=== PATIENT | female | born 1975 | race Caucasian/White ===

== ENCOUNTER 2023-09-26 06:56 | Outpatient (OUT) | payer OTHER, SELFPAY ==
[2023-09-26 07:24] LABS: Basophils Absolute Auto 0.1 10^3/uL (0.0-0.1); Basophils Percent Auto 0.7 % (0.2-2.0); Eosinophils Absolute Auto 0.2 10^3/uL (0.0-0.7); Eosinophils Percent Auto 2.9 % (0.9-7.0); Hematocrit 39.4 % (36.0-48.0); Hemoglobin 12.6 g/dL (12.0-16.0); Immature Granulocytes Abs Auto 0.03 10^3/uL (0.00-0.03); Immature Granulocytes Pct Auto 0.4 % (0.0-0.5); Lymphocytes Absolute Auto 1.2 10^3/uL (1.2-3.8); Lymphocytes Percent Auto 17.7 % (20.5-60.0); Mean Corpuscular Hemoglobin 28.3 pg (26.7-34.0); Mean Corpuscular Volume 88.5 fL (81.0-99.0); Mean Platelet Volume 8.6 fL (9.5-13.5); Monocytes Absolute Auto 0.4 10^3/uL (0.3-0.8); Monocytes Percent Auto 5.2 % (1.7-12.0); Neutrophils Percent Auto 73.1 % (43.0-75.0); Platelet Count 344 10^3/uL (150-450); Red Blood Count 4.45 10^6/uL (4.20-5.40); Red Cell Distribution Width 13.9 % (11.0-15.0); White Blood Count 6.9 10^3/uL (4.0-11.0)
[2023-09-26 08:58] LABS: Magnesium 1.8 mg/dL (1.8-2.4); Phosphorus 3.8 mg/dL (2.6-4.7); Uric Acid 4.6 mg/dL (2.6-6.0)
[2023-09-26 14:18] LABS: Estimated Average Glucose 117 mg/dL; Glycohemoglobin A1C 5.7 % (4.5-6.2)
[2023-09-26 14:19] LABS: Alanine Aminotransferase 29 U/L (14-59); Albumin Globulin Ratio 0.9; Albumin Level 3.7 g/dL (3.4-5.0); Alkaline Phosphatase 97 U/L (46-116); Anion Gap 16.6; Aspartate Amino Transferase 20 U/L (15-37); BUN Creatinine Ratio 12.5; Bilirubin Direct 0.1 mg/dL (0.0-0.2); Bilirubin Total 0.4 mg/dL (0.2-1.0); Calcium 9.8 mg/dL (8.5-10.1); Carbon Dioxide 24.6 mmol/L (21.0-32.0); Chloride 103 mmol/L (98-107); Cholesterol 227 mg/dL (<=200); Estimated GFR (African America 58 (>=60); Estimated GFR (Non-African Ame 48 (>=60); Globulin 4.1 g/dL; Glucose 121 mg/dL (74-106); HDL Cholesterol 38 mg/dL (40-60); Potassium 3.2 mmol/L (3.5-5.1); Sodium 141 mmol/L (136-145); Total Protein 7.8 g/dL (6.4-8.2); Triglycerides 246 mg/dL (<=150); VLDL CHOLESTEROL 49.2 mg/dL
[2023-09-30 16:08] LABS: BKV DNA, Quant PCR, Plasma Negative (Negative)
== END 2023-09-26 06:57 | disposition home or self-care (01) ==
LOC: LAB 07:00
PROVIDERS: PCP Internal Medicine; Visit Provider Internal Medicine Nephrology
DX: R73.01 Impaired fasting glucose (principal); Z94.0 Kidney transplant status
CPT/HCPCS: 36415; 80053; 80061; 80197; 82248; 83036; 83735; 84100; 84550; 85025; 87799

== ENCOUNTER 2023-11-01 09:04 | Outpatient (OUT) | payer OTHER, SELFPAY ==
--- OUTSIDE RECORDS SUMMARY | 2023-11-01 09:10 | XMS_ITS | CCD ---
Author Name Unknown Address [address] [place] [address] Organization [facility] Care Team Providers Care Flying I Instructor Name Role Phone Ming Espinoza Primary Care Provider [phone] VIDAL MADRIGAL Attending Unavailable MING ESPINOZA Primary Care Unavailable Yaneth Muñoz Unavailable Shabbir Jones Unavailable Dipika Stinson Unavailable Jesus Parham Unavailable [phone] DO iMng Espinoza Primary Care Provider MD Shabbir Jones Attending Provider MD Yaneth Muñoz Attending Provider [phone] MD Jesus Parham Attending Provider [phone] Estefania Vo Unavailable DO Ming Espinoza Primary Care Provider [phone] EB Forman Emergency Provider DO Blake Champion Attending Provider JAVON, DR ZARAGOZA Admitting Unavailable DR MING ESPINOZA Primary Care Unavailable JAVON, DR ZARAGOZA Attending Unavailable JAVON, DR ZARAGOZA Consulting Unavailable YANETH MUÑOZ Admitting Unavailable DR MING ESPINOZA Primary Care Unavailable DR MING ESPINOZA Consulting Unavailable YANETH MUÑOZ Attending Unavailable YANETH MUÑOZ Consulting Unavailable DR MING ESPINOZA Primary Care Unavailable TONI, YANETH Attending Unavailable TONI, YANETH Consulting Unavailable TONI, YANETH Admitting Unavailable TONI, YANETH Admitting Unavailable ALEXIS, DR ACOSTA Primary Care Unavailable TONI, YANETH Attending Unavailable TONI, YANETH Consulting Unavailable JAYCEE, DR PARRY Admitting Unavailable ALEXIS, DR ACOSTA Primary Care Unavailable JAYCEE, DR PARRY Attending Unavailable JAYCEE, DR PARRY Consulting Unavailable JAYCEE, DR MORALES Attending Unavailable JAYCEE, DR MORALES Admitting Unavailable ALEXIS, DR ACOSTA Primary Care Unavailable ALEXIS, DR ACOSTA Primary Care Unavailable MISC, DR ZARAGOZA Admitting Unavailable MISC, DR ZARAGOZA Attending Unavailable MISC, DR ZARAGOZA Consulting Unavailable TONI, YANETH Admitting Unavailable ALEXIS, DR ACOSTA Primary Care Unavailable TONI, YANETH Attending Unavailable TONI, YANETH Consulting Unavailable Self, Referral Admitting Unavailable Self, Referral Attending Unavailable Blake Champion Referring Unavailable Ming Espinoza Primary Care Unavailable JOÃO PARRISH Attending Unavailable JOÃO PARRISH Attending Unavailable SUJIT MONTERROSO Attending Unavailable SREE BLANCHARD Attending Unavailable DOLORESSUJIT BRISCOE Attending Unavailable MING ESPINOZA Attending Unavailable MING ESPINOZA Referring Unavailable Allergies Allergy Classification Reported Allergen(s) Allergy Type Date of Onset Reaction(s) Facility (11 sources) Allopurinol; Translations: [ALLOPURINOL] Drug Allergy 08-02-2019 [place], [place] (6 sources) venlafaxine; Translations: [venlafaxine] Drug Allergy 06-05-2022 [facility] (1 source) Allopurinol Drug Allergy 06-20-2022 [facility] Repository (1 source) venlafaxine; Translations: [VENLAFAXINE HCL] Drug Allergy 07-10-2021 [facility] Repository Medications Current Medications Medication Drug Class(es) Dates Sig (Normalized) Sig (Original) amoxicillin 875 mg / clavulanate 125 mg oral tablet (2 sources) Penicillin-class Antibacterial Start: 04-30-2022 take 1 tablet by mouth every twelve hours Amoxicillin-Pot Clavulanate 875-125 MG 1 tablet Orally every 12 hrs for 7 days Apr, Active {1 (ascorbic acid 7540 MG / polyethylene glycol 3350 44713 MG / potassium chloride 1200 MG / sodium ascorbate 14586 MG / sodium chloride 3200 MG Powder for Oral Solution) / 1 (polyethylene glycol 3350 585531 MG / potassium chloride 1000 MG / sodium chloride 2000 MG / sodium sulfate 9000 MG Powder for Oral Solution) } Pack [Plenvu] (1 source) Osmotic Laxative, Vitamin C Start: 02-26-2022 Plenvu 140 GM dose 1 pouch at 4pm, dose 2 pouch A & B at 11pm Orally twice a day for 1 days [id number] PCN: [id number] GROUP:[id number] ID:[id number] February, Active cetirizine hydrochloride 10 mg oral tablet (9 sources) Histamine-1 Receptor Antagonist take 1 tablet by mouth once daily as needed ZyrTEC Allergy 10 MG 1 tablet as needed Orally Once a day Active DULoxetine 60 mg delayed release oral capsule (14 sources) Serotonin and Norepinephrine Reuptake Inhibitor Start: 01-19-2019 take 60 mg by mouth once daily in the morning Duloxetine Active 60 MG PO Every morning January 19, 2019 12:00am DULoxetine HCl ( CYMBALTA PO) Take by mouth 0 Active febuxostat 40 mg oral tablet (13 sources) Xanthine Oxidase Inhibitor Start: 08-02-2019 Febuxostat (Uloric) 40 mg Tablet Active 20 MG PO Every morning August 02, 2019 12:00am take 0.5 tablet by mouth once da larissa Uloric 40 MG 1/2 tablet Orally Once a day Active ferrous sulfate 134 mg oral tablet (12 sources) Start: 04-01-2022 take 27 mg by mouth every other day Ferrous Sulfate Active 27 MG PO Q2D April 01, 2022 12:00am Start: 08-05-2019 End: 04-01-2022 take 324 mg by mouth twice daily Ferrous Sulfate Discontinued 324 MG PO Twice daily 60 30 August 05, 2019 12:00am April 01, 2022 7:05am Start: 01-20-2019 End: 08-02-2019 take 324 mg by mouth twice daily Ferrous Sulfate Discontinued 324 MG PO Twice daily 60 January 20, 2019 12:00am August 02, 2019 5:52pm furosemide 20 mg oral tablet (9 sources) Loop Diuretic take 1 tablet by mouth once daily as needed Furosemide 20 MG TAKE 1 TABLET BY MOUTH EVERY DAY for 90 PRN Active Iron (9 sources) take 1 tablet by mouth every other day Iron (Ferrous Sulfate) 325 (65 Fe) MG 1 tablet Orally every other day Active lisinopril 20 mg oral tablet (20 sources) Angiotensin Converting Enzyme Inhibitor Start: End: 2 take 20 mg by mouth once daily in the morning Lisinopril Active 20 MG PO Every morning June 05, 2022 9:09am LISINOPRIL PO Ta ke by mouth 0 Active Multivitamin preparation (9 sources) take 1 tablet by mouth once daily Multi Vitamin - 1 tablet Orally Once a day Active sodium bicarbonate 650 mg oral tablet (13 sources) Start: 04-01-2022 take 650 mg by mouth twice daily Sodium Bicarbonate Active 650 MG PO Twice daily April 01, 2022 12:00am 3 ml sodium chloride 9 mg/ml injection (4 sources) Start: 08-02-2019 sodium chloride flush 0.9 % injection 10 mL Start: 08-02-2019 sodium chlorid e flush 0.9 % injection 10 mL Start: 08-02-2019 End: 08-02-2019 0.9 % sodium chloride bolus Completed/Discontinued Medications Medication Drug Class(es) Dates Sig (Normalized) Sig (Original) acetaminophen 500 mg oral tablet (5 sources) Start: 08-02-2019 End: 08-02-2019 acetaminophen (TYLENOL) tablet 1,000 mg Start: 08-02-2019 take 2 tablets by mo ut once daily Acetaminophen (Tylenol Extra Strength) 500 mg Tablet Active 1000 MG PO Daily August 02, 2019 12:00am calcitriol 0.28885 mg oral capsule (4 sources) Vitamin D3 Analog Start: 01-20-2019 End: 08-02-2019 Calcitriol (Rocaltrol) 0.25 mcg Capsule Discontinued 0.25 MCG PO MoWeFr@0900 12 January 20, 2019 12:00am August 02, 2019 5:53pm calcium carbonate 500 mg chewable tablet (4 sources) Start: 01-19-2019 End: 08-02-2019 take 1 tablet by mouth four times daily Calcium Carbonate (Tums) 200 mg calcium (500 mg) Tablet,Chewable Discontinued 200 MG PO Four times daily January 19, 2019 12:00am August 02, 2019 5:51pm cefTRIAXone (ROCEPHIN) 1 g in sterile water 10 mL IV syringe (1 source) Start: 08-02-2019 End: 08-02-2019 cefTRIAXone (ROCEPHIN) 1 g in sterile water 10 mL IV syringe cephalexin 500 mg oral capsule (12 sources) Cephalosporin Antibacterial Start: 04-01-2022 End: 06-05-2022 take 500 mg by mouth four times daily Cephalexin Discontinued 500 MG PO Four times daily April 01, 2022 12:00am June 05, 2022 9:02am Start: 08-05-2019 End: 05-21-2020 take 1 capsule by mouth twice daily Cephalexin (Keflex) 500 mg capsule Discontinued 500 MG PO Twice daily 24 12 August 05, 2019 12:00am May 21, 2020 9:38pm Start: 01-20-2019 End: 08-02-2019 take 1 capsule by mouth every eight hours Cephalexin (Keflex) 500 mg capsule Discontinued 500 MG PO Q8H 15 5 January 20, 2019 12:00am August 02, 2019 5:51pm ciprofloxacin 250 mg oral tablet (4 sources) Quinolone Antimicrobial Start: 05-15-2020 End: 04-01-2022 take 1 tablet by mouth every twelve hours Ciprofloxacin Hcl (Cipro) 250 mg tablet Discontinued 250 MG PO Q12H 6 3 May 15, 2020 12:00am April 01, 2022 7:03am ergocalciferol 1.25 mg oral capsule (4 sources) Provitamin D2 Compound Start: 01-20-2019 End: 08-02-2019 take 15439 [IU] by mouth every month Ergocalciferol (Vitamin D2) Discontinued 42714 UNIT PO every month January 20, 2019 12:00am August 02, 2019 5:53pm hydroCHLOROthiazide 12.5 mg / lisinopril 20 mg oral tablet (4 sources) Thiazide Diuretic, Angiotensin Converting Enzyme Inhibitor Start: 01-19-2019 End: 08-05-2019 take 1 tablet by mouth once daily Lisinopril-Hydroch lorothiazide Discontinued 1 TAB PO Daily January 19, 2019 12:00am August 05, 2019 4:31pm Iopamidol (1 source) Radiographic Contrast Agent Start: 08-02-2019 End: 08-02-2019 iopamidol (ISOVUE-370) 76 % injection 100 mL Problems Active Problems Problem Classification Problem Date Documented Date Episodic/Chronic Acute and chronic tonsillitis (9 sources) Amygdalolith; Translations: [Other chronic diseases of tonsils and adenoids] Chronic Acute and unspecified renal failure (1 source) Chronic renal failure; Translations: [Chronic renal failure, stage 4 (severe) (HCC)] Chronic Acute and unspecified renal failure (4 sources) Injury of kidney; Translations: [Acute kidney failure, unspecified] 01-19-2019 Episodic Acute myocardial infarction (4 sources) Myocardial infarction; Translations: [Non-ST elevation (NSTEMI) myocardial infarction] 08-03-2019 Chronic Chronic kidney disease (20 sources) Chronic kidney disease stage 4; Translations: [Chronic kidney disease, stage 4 (severe)] Onset: 2 Resolved: 2 Chronic Complication of device; implant or graft (2 sources) Other complication of kidney transplant; Translations: [Other complication of kidney transplant] Onset: 3 Chronic Deficiency and other anemia (13 sources) Anemia of renal disease; Translations: [Anemia in chronic kidney disease] 01-19-2019 Chronic Deficiency and other anemia (8 sources) Anemia in chronic kidney disease; Translations: [ANEMIA IN CHRONIC KIDNEY DISEASE] Onset: 1 Resolved: 2 Chronic Deficiency and other anemia (9 sources) Iron deficiency anemia; Translations: [Iron deficiency anemia, unspecified] Episodic Diabetes mellitus without complication (2 sources) Impaired fasting glucose; Translations: [Impaired fasting glucose] Onset: 3 Episodic Disorders of lipid metabolism (4 sources) Hyperlipidemia, unspecified; Translations: [Pure hypercholesterolemia, unspecified] Onset: 3 Chronic Essential hypertension (2 sources) Essential (primary) hypertension; Translations: [Essential (primary) hypertension] Onset: 2 Chronic Fever of unknown origin (4 sources) Fever; Translations: [Fever, unspecified] 05-22-2020 Episodic Genitourinary congenital anomalies (20 sources) Polycystic kidney disease, adult type; Translations: [Polycystic kidney, adult type] Onset: 2 Resolved: 2 Chronic Genitourinary congenital anomalies (1 source) Multiple renal cysts; Translations: [Polycystic kidney disease] Episodic Genitourinary symptoms and ill-defined conditions (4 sources) Dysuria 01-19-2019 Episodic Gout and other crystal arthropathies (13 sources) Gout; Translations: [Gout, unspecified] Onset: 2 Resolved: 2 Chronic Hypertension with complications and secondary hypertension (20 sources) Chronic kidney disease due to hypertension; Translations: [Hypertensive chronic kidney disease with stage 1 through stage 4 chronic kidney disease, or unspecified chronic kidney disease] Onset: 1 Resolved: 2 Chronic Immunity disorders (2 sources) Immunodeficiency, unspecified; Translations: [Immunodeficiency, unspecified] Onset: 3 Chronic Intrauterine hypoxia and asphyxia (1 source) Metabolic acidemia, unspecified Episodic Nutritional deficiencies (4 sources) Vitamin D deficiency; Translations: [Vitamin D deficiency, unspecified] 01-20-2019 Chronic Other aftercare (2 sources) Encounter for aftercare following kidney transplant; Translations: [Encounter for aftercare following kidney transplant] Onset: 3 Chronic Other aftercare (2 sources) Encounter for aftercare following other organ transplant; Translations: [Encounter for aftercare following other organ transplant] Onset: 3 Chronic Other circulatory disease (7 sources) Acquired arteriovenous fistula aneurysm; Translations: [Arteriovenous fistula, acquired] Chronic Other circulatory disease (1 source) Ecchymosis; Translations: [Hemorrhage, not elsewhere classified] 06-20-2022 Episodic Other connective tissue disease (1 source) Pain in left arm; Translations: [Pain in left arm] 06-20-2022 Episodic Other diseases of kidney and ureters (13 sources) Secondary hyperparathyroidism; Translations: [Secondary hyperparathyroidism of renal origin] 01-19-2019 Chronic Other diseases of kidney and ureters (4 sources) Secondary hyperparathyroidism of renal origin; Translations: [SEC HYPERPARATHYROIDISM RENAL ORIGN] Onset: 2 Resolved: 2 Chronic Other inflammatory condition of skin (4 sources) Pruritus of skin; Translations: [Pruritus, unspecified] 08-04-2019 Episodic Other nervous system disorders (2 sources) Myopathy, unspecified; Translations: [Myopathy, unspecified] Onset: 3 Chronic Other nutritional; endocrine; and metabolic disorders (4 sources) Hyperuricemia; Translations: [Hyperuricemia without signs of inflammatory arthritis and tophaceous disease] 01-19-2019 Episodic Ovarian cyst (4 sources) Unspecified ovarian cyst, left side; Translations: [UNSPECIFIED OVARIAN CYST LEFT SIDE] Onset: 2 Episodic Septicemia (except in labor) (5 sources) Sepsis; Translations: [Sepsis due to urinary tract infection] 08-03-2019 Episodic Unclassified (1 source) Encounter for screening mammogram for malignant neoplasm of breast; Translations: [Encounter for screening mammogram for malignant neoplasm of breast] Onset: 3 Unclassified (2 sources) Kidney Follow-up; Translations: [Kidney Follow-up] Onset: 3 Unclassified (1 source) Acidosis, unspecified; Translations: [Acidosis, unspecified] Onset: 2 Unclassified (2 sources) Kidney Transplant; Translations: [Kidney Transplant] Onset: 3 Urinary tract infections (13 sources) Acute cystitis; Translations: [Urinary tract infectious disease] 05-15-2020 Episodic Past or Other Problems Problem Classification Problem Date Documented Date Episodic/Chronic Fluid and electrolyte disorders (5 sources) Acidosis; Translations: [Other disorders of electrolyte and fluid balance, not elsewhere classified] Onset: 12-06-2021 Resolved: 05-02-2022 Episodic Immunizations and screening for infectious disease (2 sources) Encounter for screening for human immunodeficiency virus [HIV]; Translations: [Encounter for screening for human immunodeficiency virus (HIV)] Onset: 10-23-2022 Episodic Other aftercare (2 sources) Other termite helper (current) drug therapy; Translations: [Other termite helper (current) drug therapy] Onset: 11-06-2022 Episodic Other nutritional; endocrine; and metabolic disorders (2 sources) Hyperuricemia without signs of inflammatory arthritis and tophaceous disease; Translations: [Hyperuricemia without signs of inflammatory arthritis and tophaceous disease] Onset: 10-01-2022 Episodic Other screening for suspected conditions (not mental disorders or infectious disease) (3 sources) Encounter for screening for malignant neoplasm of colon; Translations: [Encounter for screening for diseases of the blood and blood-forming organs and certain disorders involving the immune mechanism] Onset: 02-26-2022 Resolved: 02-26-2022 Episodic Otitis media and related conditions (1 source) Otitis media, unspecified, bilateral Onset: 04-30-2022 Resolved: 04-30-2022 Episodic Unclassified (1 source) Acidosis, unspecified; Translations: [Acidosis, unspecified] Onset: 11-08-2022 Results Test Name Value Interpretation Reference Range Facility Orders Onlyon 10-02-2023 Orders Only Normal [facility] Follow-Upon 09-01-2023 Follow-Up Normal [facility] BILIRUBIN, DIRECTon 08-26-20 Magnesium [Mass/Vol] 0.1 mg/dL Normal 0-0.2 [facility] Comment on above: Performed By: #### L [id number] ####[facility] ([facility])[address] [place] [address] CBC WITH AUTO DIFFERENTIALon 08-26-2023 Basophils (Bld) [#/Vol] 0.05 10*3/uL Normal 0.00-0.20 [facility] Comment on above: Performed By: #### L [id number] ####[facility] ([facility])[address] [place] [address] Basophils/100 WBC (Bld) 0.6 % Normal 0.0-1.0 [facility] Comment on above: Performed By: #### L [id number] ####[facility] ([facility])[address] [place] [address] Eosinophils (Bld) [#/Vol] 0.20 10*3/uL Normal 0.00-0.50 [facility] Comment on above: Performed By: #### L [id number] ####[facility] ([facility])[address] [place] [address] Eosinophils/100 WBC (Bld) 2.5 % Normal 0.0-6.0 [facility] Comment on above: Performed By: #### L [id number] ####[facility] ([facility])[address] [place] [address] Erythrocyte distribution width (RBC) [Ratio] 14.4 % Normal 11.5-15.0 [facility] Comment on above: Performed By: #### L [id number] ####[facility] ([facility])[address] [place] [address] ERYTHROCYTE MEAN CORPUSCULAR HEMOGLOBIN CONCENTRATION (G/DL) BY AUTOMATED 32.9 g/dL Normal 32.0-35.0 [facility] Comment on above: Performed By: #### L [id number] ####[facility] ([facility])[address] [place] [address] Hematocrit (Bld) [Volume fraction] 40.4 % Normal 36.0-48.0 [facility] Comment on above: Performed By: #### L [id number] ####[facility] ([facility])[address] [place] [address] Hemoglobin (Bld) [Mass/Vol] 13.3 g/dL Normal 12.0-15.0 [facility] Comment on above: Performed By: #### L [id number] ####[facility] ([facility])[address] [place] [address] Immature granulocytes (Bld) [#/Vol] 0.06 10*3/uL Normal 0.00-0.20 [facility] Comment on above: Performed By: #### L [id number] ####[facility] ([facility])[address] [place] [address] Immature granulocytes/100 WBC (Bld) 0.7 % Normal 0.0-1.0 [facility] Comment on above: Performed By: #### L [id number] ####[facility] ([facility])[address] [place] [address] Lymphocytes (Bld) [#/Vol] 1.19 10*3/uL Low 1.20-4.00 [facility] Comment on above: Performed By: #### L [id number] ####[facility] ([facility])[address] [place] [address] Lymphocytes/100 WBC (Bld) 14.6 % Low 20.0-45.0 [facility] Comment on above: Performed By: #### L [id number] ####[facility] ([facility])[address] [place] [address] MCH (RBC) [Entitic mass] 28.4 pg Normal 27.0-33.0 [facility] Comment on above: Performed By: #### L [id number] ####[facility] ([facility])[address] [place] [address] MCV (RBC) [Entitic vol] 86.1 fL Normal 82.0-98.0 [facility] Comment on above: Performed By: #### L [id number] ####[facility] ([facility])[address] [place] [address] Monocytes (Bld) [#/Vol] 0.42 10*3/uL Normal 0.10-1.00 [facility] Comment on above: Performed By: #### L [id number] ####[facility] ([facility])[address] [place] [address] Monocytes/100 WBC (Bld) 5.2 % Normal 5.0-12.0 [facility] Comment on above: Performed By: #### L [id number] ####[facility] ([facility])[address] [place] [address] Neutrophils (Bld) [#/Vol] 6.22 10*3/uL Normal 1.60-7.60 [facility] Comment on above: Performed By: #### L [id number] ####[facility] ([facility])[address] [place] [address] Neutrophils/100 WBC (Bld) 76.4 % High 40.0-72.0 [facility] Comment on above: Performed By: #### L [id number] ####[facility] ([facility])[address] [place] [address] NRBC (PER 100 WBCS) BY AUTOMATED COUNT 0.0 % Normal 0 [facility] Comment on above: Performed By: #### L [id number] ####[facility] ([facility])[address] [place] [address] PLATELETS (10*3/UL) IN BLOOD AUTOMATED COUNT 374 10*3/uL Normal 150-400 [facility] Comment on above: Performed By: #### L [id number] ####[facility] ([facility])[address] [place] [address] RBC (Bld) [#/Vol] 4.69 10*6/uL Normal 3.80-5.00 [facility] Comment on above: Performed By: #### L [id number] ####[facility] ([facility])[address] [place] [address] WBC (Bld) [#/Vol] 8.14 10*3/uL Normal 4.00-10.60 [facility] Comment on above: Performed By: #### L [id number] ####[facility] ([facility])[address] [place] [address] [address] MET[address]OLIC PANE [facility] 08-26-2023 Albumin [Mass/Vol] 4.7 g/dL Normal 3.5-5.7 [facility] Comment on above: Performed By: #### L [id number] ####[facility] ([facility])[address] [place] [address] ALP [Catalytic activity/Vol] 90 U/L Normal 34-104 [facility] Comment on above: Performed By: #### L [id number] ####[facility] ([facility])[address] [place] [address] ALT [Catalytic activity/Vol] 26 U/L Normal 7-52 [facility] Comment on above: Performed By: #### L [id number] ####[facility] ([facility])[address] [place] [address] Anion gap [Moles/Vol] 12 mmol/L Normal 7-20 [facility] Comment on above: Performed By: #### L [id number] ####[facility] ([facility])[address] [place] [address] AST [Catalytic activity/Vol] 22 U/L Normal 13-39 [facility] Comment on above: Performed By: #### L [id number] ####[facility] ([facility])[address] [place] [address] Bilirubin [Mass/Vol] 0.4 mg/dL Normal 0.3-1.0 [facility] Comment on above: Performed By: #### L [id number] ####[facility] ([facility])[address] [place] [address] Calcium [Mass/Vol] 9.6 mg/dL Normal 8.6-10.3 [facility] Comment on above: Performed By: #### L [id number] ####[facility] ([facility])[address] [place] [address] Chloride [Moles/Vol] 103 mmol/L Normal 98-107 [facility] Comment on above: Performed By: #### L [id number] ####[facility] ([facility])[address] [place] [address] CO2 [Moles/Vol] 26 mmol/L Normal 21-31 [facility] Comment on above: Performed By: #### L [id number] ####[facility] ([facility])[address] [place] [address] Creatinine [Mass/Vol] 1.12 mg/dL Normal 0.60-1.20 [facility] Comment on above: Performed By: #### L [id number] ####[facility] ([facility])[address] [place] [address] GLOMERULAR FILTRATION RATE ML/MIN/1.73 SQ M.PREDICTED 61.0 mL/min/1.73m*2 Normal >60.0 [facility] Comment on above: Result Comment: The [facility]???s estimated glomerular filtration rate (eGFR) will no longer include consideration of race in its calculation. The [employer]???s eGFR Task Force developed new recommendations for the estimation of the glomerular filtration rate in the [place] They recommend immediate implementation of the new equation refit without the race variable in all laboratories because the calculation does not include race. In addition to not including race in the calculation and reporting, it included diversity in its development, and has acceptable performance characteristics and potential consequences that do not disproportionately affect any one group of individuals. Performed By: #### L [id number] ####[facility] ([facility])[address] [place] [address] Glucose [Mass/Vol] 125 mg/dL High 70-100 [facility] Comment on above: Performed By: #### L [id number] ####[facility] ([facility])[address] [place] [address] Potassium [Moles/Vol] 3.1 mmol/L Low 3.5-5.1 [facility] Comment on above: Performed By: #### L [id number] ####[facility] ([facility])[address] [place] [address] Protein [Mass/Vol] 7.4 g/dL Normal 6.0-8.3 [facility] Comment on above: Performed By: #### L [id number] ####[facility] ([facility] [place] [address] Sodium [Moles/Vol] 138 mmol/L Normal 136-145 [facility] Comment on above: Performed By: #### L [id number] ####[facility] ([facility] [place] [address] Urea nitrogen [Mass/Vol] 15 mg/dL Normal 7-25 [facility] Comment on above: Performed By: #### L [id number] ####[facility] ([facility])[address] [place] [address] UREA NITROGEN/CREATININE (MASS RATIO) IN SER/PLAS 13.4 Normal [facility] Comment on above: Performed By: #### L [id number] ####[facility] ([facility])[address] [place] [address] HEMOGLOBIN A1Con 08-26-2023 Glucose [Mass/Vol] 108 mg/dL Normal [facility] Comment on above: Performed By: #### L [id number] ####[facility] ([facility])[address] [place] [address] HbA1c (Bld) [Mass fraction] 5.4 % Normal 4.0-6.0 [facility] Comment on above: Performed By: #### L [id number] ####[facility] ([facility])[address] [facility] [address] LIPID PANELon 08-26-2023 CHOL/HDL 4.7 mg/dL Normal [facility] Comment on above: Performed By: #### L [id number] ####[facility] ([facility])[address] [facility] [address] Cholesterol [Mass/Vol] 198 mg/dL Normal 120-200 [facility] Comment on above: Performed By: #### L [id number] ####[facility] ([facility] [place] [address] Magnesium [Mass/Vol] 248 mg/dL High 40-149 [facility] Comment on above: Result Comment: TRIG LYCERIDE REFERENCE RANGE:20 YEARS AND OLDER CARDIOVASCULAR RISKLESS THAN 150 mg/dL LOW [id number] TO 199 mg/dL BORDERLINE [id number] mg/dL AND GREATER HIGH RISK Performed By: #### L [id number] ####[facility] ([facility])[address] [facility] [place] [address] Magnesium [Mass/Vol] 106 mg/dL Normal 0-160 [facility] Comment on above: Performed By: #### L [id number] ####[facility] ([facility])[address] [facility] [place] [address] Magnesium [Mass/Vol] 42 mg/dL Normal 23-92 [facility] Comment on above: Performed By: #### L [id number] ####[facility] ([facility])[address] [facility] [place] [address] NON HDL CHOL. (LDL+VLDL) 156 Normal [facility] Comment on above: Performed By: #### L [id number] ####[facility] ([facility])[address] [facility] [place] [address] TOTAL VLDL-C 50 mg/dL High 0-40 [facility] Comment on above: Performed By: #### L [id number] ####[facility] ([facility])[address] [facility] [place] [address] Labon 08-26-2023 Lab Normal [facility] MAGNESIUMon 08-26-2023 Magnesium [Mass/Vol] 1.5 mg/dL Low 1.9-2.7 [facility] Comment on above: Performed By: #### L [id number] ####[facility] ([facility])[address] [place] [address] PHOSPHORUSon 08-26-2023 Magnesium [Mass/Vol] 2.9 mg/dL Normal 2.5-5.0 [facility] Comment on above: Performed By: #### L [id number] ####[facility] ([facility])[address] [place] [address] TACROLIMUS LEVELon Tacrolimus (Bld) [Mass/Vol] 9.2 ng/mL Normal 5.0-20.0 [facility] Comment on above: Result Comment: The [employer] Tacrolimus assay is a delayed one-step immunoassay for the quantitative determination of tacrolimus in human whole blood using the chemiluminescent microparticle immunoassay (CMIA) technology with flexible assay protocols, referred to as Chemiflex. Performed By: #### L [id number] ####[facility] ([facility])[address] [place] [address] URIC ACIDon 08-26-2023 Magnesium [Mass/Vol] 5.1 mg/dL Normal 2.3-6.6 [facility] Comment on above: Performed By: #### L [id number] ####[facility] ([facility])[address] [place] [address] COMPREHENSIVE METABOLIC PANE Jonathan 08-06-2023 Albumin [Mass/Vol] 4.7 g/dL Normal 3.5-5.7 [facility] Comment on above: Performed By: #### L [id number] ####[facility] ([facility])[address] [place] [address] ALP [Catalytic activity/Vol] 85 U/L Normal 34-104 [facility] Comment on above: Performed By: #### L [id number] ####[facility] ([facility])[address] [place] [address] ALT [Catalytic activity/Vol] 25 U/L Normal 7-52 [facility] Comment on above: Performed By: #### L [id number] ####[facility] ([facility])[address] [place] [address] Anion gap [Moles/Vol] 14 mmol/L Normal 7-20 [facility] Comment on above: Performed By: #### L [id number] ####[facility] ([facility])[address] [place] [address] AST [Catalytic activity/Vol] 23 U/L Normal 13-39 [facility] Comment on above: Performed By: #### L [id number] ####[facility] ([facility])[address] [place] [address] Bilirubin [Mass/Vol] 0.5 mg/dL Normal 0.3-1.0 [facility] Comment on above: Performed By: #### L [id number] ####[facility])[address] [place] [address] Calcium [Mass/Vol] 9.5 mg/dL Normal 8.6-10.3 [facility] Comment on above: Performed By: #### L [id number] ####[facility])[address] [place] [address] Chloride [Moles/Vol] 105 mmol/L Normal 98-107 [facility] Comment on above: Performed By: #### L [id number] ####[facility] ([facility])[address] [place] [address] CO2 [Moles/Vol] 21 mmol/L Normal 21-31 [facility] Comment on above: Performed By: #### L [id number] ####[facility] ([facility])[address] [place] [address] Creatinine [Mass/Vol] 1.23 mg/dL High 0.60-1.20 [facility] Comment on above: Performed By: #### L [id number] ####[facility] ([facility])[address] [place] [address] GLOMERULAR FILTRATION RATE ML/MIN/1.73 SQ M.PREDICTED 54.5 mL/min/1.73m*2 Low >60.0 [facility] Comment on above: Result Comment: The [facility]???s estimated glomerular filtration rate (eGFR) will no longer include consideration of race in its calculation. The National Kidney Foundation???s eGFR Task Force developed new recommendations for the estimation of the glomerular filtration rate in the [place] They recommend immediate implementation of the new equation refit without the race variable in all laboratories because the calculation does not include race. In addition to not including race in the calculation and reporting, it included diversity in its development, and has acceptable performance characteristics and potential consequences that do not disproportionately affect any one group of individuals. Performed By: #### L [id number] ####[facility] ([facility])[address] [place] [address] Glucose [Mass/Vol] 133 mg/dL High 70-100 [facility] Comment on above: Performed By: #### L [id number] ####[facility] ([facility])[address] [place] [address] Potassium [Moles/Vol] 3.4 mmol/L Low 3.5-5.1 [facility] Comment on above: Performed By: #### L [id number] ####[facility])[address] [place] [address] Protein [Mass/Vol] 7.4 g/dL Normal 6.0-8.3 [facility] Comment on above: Performed By: #### L [id number] ####[facility])[address] [place] [address] Sodium [Moles/Vol] 137 mmol/L Normal 136-145 [facility] Comment on above: Performed By: #### L [id number] ####[facility])[address] [place] [address] Urea nitrogen [Mass/Vol] 14 mg/dL Normal 7-25 [facility] Comment on above: Performed By: #### L [id number] ####[facility] ([facility])[address] [place] [address] UREA NITROGEN/CREATININE (MASS RATIO) IN SER/PLAS 11.4 Normal [facility] Comment on above: Performed By: #### L [id number] ####[facility] ([facility])[address] [place] [address] Labon 08-06-2023 Lab Normal [facility] Orders Onlyon 08-06-2023 Orders Only [facility] SINGLE ANTIGEN CLASS Ion AB SCREEN COMMENTS No Class I donor spe cific antibody identified [facility] Comment on above: Order Comment: To be used after initial monthly order expires Performed By: #### L [id number] ####[facility] TISSUE TYPING ([facility])[address] [place] [address] [place] CLASS I TESTED DATE Normal [facility] Comment on above: Order Comment: To be used after initial monthly order expires Performed By: #### L [id number] ####[facility] TISSUE TYPING ([facility])[address] [place] [address] [facility] SINGLE ANTIGEN CLASS 1 TEST METHOD Class I Single Antigen Normal [facility] Comment on above: Order Comment: To be used after initial monthly order expires Performed By: #### L [id number] ####[facility] TISSUE TYPING ([facility]AC)[address] [place] [address] [facility] SINGLE ANTIGEN CLASS IIon AB SCREEN COMMENTS No Class II donor specific antibody identified [facility] Comment on above: Order Comment: To be used after initial monthly order expires Performed By: #### L [id number] ####[facility] TISSUE TYPING ([facility]IST[facility]AC)[address] [place] [address] [place] CLASS II TESTED DATE [facility] Comment on above: Order Comment: To be used after initial monthly order expires Performed By: #### L [id number] ####[facility] TISSUE TYPING (HISTOTRAC)[address] [place], [place] [address] SIGNED BY Signed by Sree escamilla CHT([facility]) PARKER([facility]), [employer]inery [employer] Plant Transplant Immunology Normal [facility] Comment on above: Order Comment: To be used after initial monthly order expires Performed By: #### L [id number] ####[facility] TISSUE TYPING ([facility]ISTOTRAC)[address] [place] [address] [facility] Result Comment: Clas s I Antigen Microbeads Performed By: #### L [id number] ####[facility] TISSUE TYPING ([place]ISTOTRAC)[address] [place] [address] [facility] SINGLE ANTIGEN CLASS 2 TEST METHOD Class II Single Antigen Normal [facility] Comment on above: Order Comment: To be used after initial monthly order expires Result Comment: Clas s II Antigen Microbeads Performed By: #### L [id number] ####[facility] TISSUE TYPING ([facility]ISTOTRAC)[address] [place] [address] [facility] MM screening mammo BI w/CADo n 07-30-2023 MM screening mammo BI w/CAD [facility] [address] Mammography Report Signed Patient: Mandeep Puri MR#: [id number] 15 : 1975 Acct:[id number] Age/Sex: 47 / F ADM Date: 07/30/23 Loc: MS Room: Type: [facility] Attending Dr: Referral Self Copies to: Ming Espinoza, SELF,REFERRAL Blake Champion DO Ordering Provider: SELF,REFERRAL Date of Service: 07/30/23 MM/MM screening mammo BI w/CAD: SCREENING CLINICAL DATA: Screening for malignancy. SCREENING MAMMOGRAM - FULL FIELD DIGITAL WITH TOMOSYNTHESIS AND CAD COMPARISON:Mammograms dating back to 2018 Tomosynthesis craniocaudal and mediolateral oblique views of both breasts were obtained using low- dose digital technique. This examination was reviewed with the aid of CAD. The breast tissue is composed of scattered fibroglandular densities. There are no dominant masses, typically malignant calcifications or architectural distortion. There has been no significant interval change. MM/MM screening mammo BI w/CAD IMPRESSION: NO MAMMOGRAPHIC EVIDENCE OF MALIGNANCY. ROUTINE FOLLOW-UP IS RECOMMENDED IN ONE YEAR. RESULT CODE: 1 Negative DENSITY CODE: 2 (approximately 25-50% glandular) FOLLOW UP: 1YR The false-negative rate of mammography is approximately 10-percent. Management of a palpable abnormality must be based on clinical grounds. Patient was entered into a reminder system with a target due date for the next mammogram. Impression dictated by: Evan Messina Jr., D.O.07/30/2023 4:05 PM Dictation Location: [facility] Transcribed By: [facility] 07/30/231604 Dictated By: Evan Messina Jr, DO 07/30/231603 Signed By: 07/30/23 160 [facility] CBC WITH AUTO DIFFERENTIALon 07-24-2023 Basophils (Bld) [#/Vol] 0.06 10*3/uL Normal 0.00-0.20 [facility] Comment on above: Performed By: #### L [id number] ####[facility] ([facility])[address] [facility] [place] [address] Basophils/100 WBC (Bld) 0.7 % Normal 0.0-1.0 [facility] Comment on above: Performed By: #### L [id number] ####[facility] ([facility])[address] [facility] [place] [address] Eosinophils (Bld) [#/Vol] 0.28 10*3/uL Normal 0.00-0.50 [facility] Comment on above: Performed By: #### L [id number] ####[facility] ([facility])[address] [facility] [place] [address] Eosinophils/100 WBC (Bld) 3.3 % Normal 0.0-6.0 [facility] Comment on above: Performed By: #### L [id number] ####[facility] ([facility])[address] [facility] [place] [address] Erythrocyte distribution width (RBC) [Ratio] 14.6 % Normal 11.5-15.0 [facility] Comment on above: Performed By: #### L [id number] ####[facility] ([facility])[address] [place] [address] ERYTHROCYTE MEAN CORPUSCULAR HEMOGLOBIN CONCENTRATION (G/DL) BY AUTOMATED 33.2 g/dL Normal 32.0-35.0 [facility] Comment on above: Performed By: #### L [id number] ####[facility] ([facility])[address] [place] [address] Hematocrit (Bld) [Volume fraction] 39.7 % Normal 36.0-48.0 [facility] Comment on above: Performed By: #### L [id number] ####[facility] ([facility])[address] [place] [address] Hemoglobin (Bld) [Mass/Vol] 13.2 g/dL Normal 12.0-15.0 [facility] Comment on above: Performed By: #### L [id number] ####[facility] ([facility])[address] [place] [address] Immature granulocytes (Bld) [#/Vol] 0.09 10*3/uL Normal 0.00-0.20 [facility] Comment on above: Performed By: #### L [id number] ####[facility] ([facility])[address] [place] [address] Immature granulocytes/100 WBC (Bld) 1.1 % High 0.0-1.0 [facility] Comment on above: Performed By: #### L [id number] ####[facility] ([facility])[address] [place] [address] Lymphocytes (Bld) [#/Vol] 1.41 10*3/uL Normal 1.20-4.00 [facility] Comment on above: Performed By: #### L [id number] ####[facility] ([facility])[address] [place] [address] Lymphocytes/100 WBC (Bld) 16.5 % Low 20.0-45.0 [facility] Comment on above: Performed By: #### L [id number] ####[facility] ([facility])[address] [place] [address] MCH (RBC) [Entitic mass] 28.9 pg Normal 27.0-33.0 [facility] Comment on above: Performed By: #### L [id number] ####[facility] ([facility])[address] [place] [address] MCV (RBC) [Entitic vol] 86.9 fL Normal 82.0-98.0 [facility] Comment on above: Performed By: #### L [id number] ####[facility] ([facility])[address] [place] [address] Monocytes (Bld) [#/Vol] 0.44 10*3/uL Normal 0.10-1.00 [facility] Comment on above: Performed By: #### L [id number] ####[facility] ([facility])[address] [place] [address] Monocytes/100 WBC (Bld) 5.1 % Normal 5.0-12.0 [facility] Comment on above: Performed By: #### L [id number] ####[facility] ([facility])[address] [place] [address] Neutrophils (Bld) [#/Vol] 6.28 10*3/uL Normal 1.60-7.60 [facility] Comment on above: Performed By: #### L [id number] ####[facility] ([facility])[address] [place] [address] Neutrophils/100 WBC (Bld) 73.3 % High 40.0-72.0 [facility] Comment on above: Performed By: #### L [id number] ####[facility] ([facility])[address] [place] [address] NRBC (PER 100 WBCS) BY AUTOMATED COUNT 0.0 % Normal 0 [facility] Comment on above: Performed By: #### L [id number] ####[facility] ([facility])[address] [place] [address] PLATELETS (10*3/UL) IN BLOOD AUTOMATED COUNT 371 10*3/uL Normal 150-400 [facility] Comment on above: Performed By: #### L [id number] ####[facility] ([facility])[address] [place] [address] RBC (Bld) [#/Vol] 4.57 10*6/uL Normal 3.80-5.00 [facility] Comment on above: Performed By: #### L [id number] ####[facility] ([facility])[address] [place] [address] WBC (Bld) [#/Vol] 8.56 10*3/uL Normal 4.00-10.60 [facility] Comment on above: Performed By: #### L [id number] ####[facility] ([facility])[address] [place] [address] Labon 07-24-2023 Lab Normal [facility] Orders Onlyon 07-24-2023 Orders Only Normal [facility] BASIC METABOLIC PANELon 07-06 Anion gap [Moles/Vol] 16 mmol/L Normal 7-20 [facility] Comment on above: Performed By: #### L [id number] ####[facility] ([facility])[address] [place] [address] Calcium [Mass/Vol] 9.7 mg/dL Normal 8.6-10.3 [facility] Comment on above: Performed By: #### L [id number] ####[facility] ([facility])[address] [place] [address] Chloride [Moles/Vol] 104 mmol/L Normal 98-107 [facility] Comment on above: Performed By: #### L [id number] ####[facility] ([facility])[address] [place] [address] CO2 [Moles/Vol] 23 mmol/L Normal 21-31 [facility] Comment on above: Performed By: #### L [id number] ####[facility] [place] [address] Creatinine [Mass/Vol] 1.18 mg/dL Normal 0.60-1.20 [facility] Comment on above: Performed By: #### L [id number] ####[facility])[address] [place] [address] GLOMERULAR FILTRATION RATE ML/MIN/1.73 SQ M.PREDICTED 57.3 mL/min/1.73m*2 Low >60.0 [facility] Comment on above: Result Comment: The [facility]???s estimated glomerular filtration rate (eGFR) will no longer include consideration of race in its calculation. The National Kidney Foundation???s eGFR Task Force developed new recommendations for the estimation of the glomerular filtration rate in the [place] They recommend immediate implementation of the new equation refit without the race variable in all laboratories because the calculation does not include race. In addition to not including race in the calculation and reporting, it included diversity in its development, and has acceptable performance characteristics and potential consequences that do not disproportionately affect any one group of individuals. Performed By: #### L [id number] ####[facility] [place] [address] Glucose [Mass/Vol] 134 mg/dL High 70-100 [facility] Comment on above: Performed By: #### L [id number] ####[facility] [place] [address] Potassium [Moles/Vol] 3.5 mmol/L Normal 3.5-5.1 [facility] Comment on above: Performed By: #### L [id number] ####[facility] [place] [address] Sodium [Moles/Vol] 139 mmol/L Normal 136-145 [facility] Comment on above: Performed By: #### L [id number] ####[facility] [place] [address] Urea nitrogen [Mass/Vol] 16 mg/dL Normal 7-25 [facility] Comment on above: Performed By: #### L [id number] ####[facility] [place] [address] UREA NITROGEN/CREATININE (MASS RATIO) IN SER/PLAS 13.6 Normal [facility] Comment on above: Performed By: #### L [id number] ####[facility] [place] [address] CBC WITH AUTO DIFFERENTIALon 07-17-2023 Basophils (Bld) [#/Vol] 0.05 10*3/uL Normal 0.00-0.20 [facility] Comment on above: Performed By: #### L [id number] ####[facility] [place] [address] Basophils/100 WBC (Bld) 0.6 % Normal 0.0-1.0 [facility] Comment on above: Performed By: #### L [id number] ####[facility] [place] [address] Eosinophils (Bld) [#/Vol] 0.21 10*3/uL Normal 0.00-0.50 [facility] Comment on above: Performed By: #### L [id number] ####[facility] [place] [address] Eosinophils/100 WBC (Bld) 2.7 % Normal 0.0-6.0 [facility] Comment on above: Performed By: #### L [id number] ####[facility] [place] [address] Erythrocyte distribution width (RBC) [Ratio] 14.3 % Normal 11.5-15.0 [facility] Comment on above: Performed By: #### L [id number] ####[facility] ([facility])[address] [place] [address] ERYTHROCYTE MEAN CORPUSCULAR HEMOGLOBIN CONCENTRATION (G/DL) BY AUTOMATED 32.6 g/dL Normal 32.0-35.0 [facility] Comment on above: Performed By: #### L [id number] ####[facility] ([facility])[address] [place] [address] Hematocrit (Bld) [Volume fraction] 38.3 % Normal 36.0-48.0 [facility] Comment on above: Performed By: #### L [id number] ####[facility] ([facility])[address] [place] [address] Hemoglobin (Bld) [Mass/Vol] 12.5 g/dL Normal 12.0-15.0 [facility] Comment on above: Performed By: #### L [id number] ####[facility] ([facility])[address] [place] [address] Immature granulocytes (Bld) [#/Vol] 0.10 10*3/uL Normal 0.00-0.20 [facility] Comment on above: Performed By: #### L [id number] ####[facility] ([facility])[address] [place] [address] Immature granulocytes/100 WBC (Bld) 1.3 % High 0.0-1.0 [facility] Comment on above: Performed By: #### L [id number] ####[facility] ([facility])[address] [place] [address] Lymphocytes (Bld) [#/Vol] 1.37 10*3/uL Normal 1.20-4.00 [facility] Comment on above: Performed By: #### L [id number] ####[facility] ([facility])[address] [place] [address] Lymphocytes/100 WBC (Bld) 17.4 % Low 20.0-45.0 [facility] Comment on above: Performed By: #### L [id number] ####[facility] ([facility])[address] [place] [address] MCH (RBC) [Entitic mass] 28.9 pg Normal 27.0-33.0 [facility] Comment on above: Performed By: #### L [id number] ####[facility] ([facility])[address] [place] [address] MCV (RBC) [Entitic vol] 88.5 fL Normal 82.0-98.0 [facility] Comment on above: Performed By: #### L [id number] ####[facility] ([facility])[address] [place] [address] Monocytes (Bld) [#/Vol] 0.44 10*3/uL Normal 0.10-1.00 [facility] Comment on above: Performed By: #### L [id number] ####[facility] ([facility])[address] [place] [address] Monocytes/100 WBC (Bld) 5.6 % Normal 5.0-12.0 [facility] Comment on above: Performed By: #### L [id number] ####[facility] ([facility])[address] [place] [address] Neutrophils (Bld) [#/Vol] 5.69 10*3/uL Normal 1.60-7.60 [facility] Comment on above: Performed By: #### L [id number] ####[facility] ([facility])[address] [place] [address] Neutrophils/100 WBC (Bld) 72.4 % High 40.0-72.0 [facility] [facility] Comment on above: Performed By: #### L [id number] ####[facility] ([facility])[address] [place] [address] NRBC (PER 100 WBCS) BY AUTOMATED COUNT 0.0 % Normal 0 [facility] Comment on above: Performed By: #### L [id number] ####[facility] ([facility])[address] [place] [address] PLATELETS (10*3/UL) IN BLOOD AUTOMATED COUNT 349 10*3/uL Normal 150-400 [facility] Comment on above: Performed By: #### L [id number] ####[facility] ([facility])[address] [place] [address] RBC (Bld) [#/Vol] 4.33 10*6/uL Normal 3.80-5.00 [facility] Comment on above: Performed By: #### L [id number] ####[facility] ([facility])[address] [place] [address] WBC (Bld) [#/Vol] 7.86 10*3/uL Normal 4.00-10.60 [facility] Comment on above: Performed By: #### L [id number] ####[facility] ([facility])[address] [place] [address] HEPATIC FUNCTION PANELon Albumin [Mass/Vol] 4.4 g/dL Normal 3.5-5.7 [facility] Comment on above: Performed By: #### L [id number] ####[facility] ([facility])[address] [place] [address] ALP [Catalytic activity/Vol] 83 U/L Normal 34-104 [facility] Comment on above: Performed By: #### L [id number] ####[facility] ([facility])[address] [place] [address] ALT [Catalytic activity/Vol] 25 U/L Normal 7-52 [facility] Comment on above: Performed By: #### L [id number] ####[facility] ([facility])[address] [place] [address] AST [Catalytic activity/Vol] 21 U/L Normal 13-39 [facility] Comment on above: Performed By: #### L [id number] ####[facility] ([facility])[address] [place] [address] Bilirubin [Mass/Vol] 0.4 mg/dL Normal 0.3-1.0 [facility] Comment on above: Performed By: #### L [id number] ####[facility] ([facility] [place] [address] Magnesium [Mass/Vol] 0.1 mg/dL Normal 0-0.2 [facility] Comment on above: Performed By: #### L [id number] ####[facility] ([facility])[address] [place] [address] Protein [Mass/Vol] 7.3 g/dL Normal 6.0-8.3 [facility] Comment on above: Performed By: #### L [id number] ####[facility] ([facility])[address] [place] [address] Labon 07-17-2023 Lab Normal [facility] MAGNESIUMon 07-17-2023 Magnesium [Mass/Vol] 1.6 mg/dL Low 1.9-2.7 [facility] Comment on above: Performed By: #### L [id number] ####[facility] ([facility])[address] [place] [address] Orders Onlyon 07-17-2023 Orders Only Normal [facility] PHOSPHORUSon 07-17-2023 Magnesium [Mass/Vol] 3.3 mg/dL Normal 2.5-5.0 [facility] Comment on above: Performed By: #### L [id number] ####[facility] ([facility])[address] [place] [address] TACROLIMUS LEVELon Tacrolimus (Bld) [Mass/Vol] 6.5 ng/mL Normal 5.0-20.0 [facility] Comment on above: Result Comment: The [employer] Tacrolimus assay is a delayed one-step immunoassay for the quantitative determination of tacrolimus in human whole blood using the chemiluminescent microparticle immunoassay (CMIA) technology with flexible assay protocols, referred to as Chemiflex. Performed By: #### L [id number] ####[facility] ([facility])[address] [place] [address] URIC ACIDon 07-17-2023 Magnesium [Mass/Vol] 4.9 mg/dL Normal 2.3-6.6 [facility] Comment on above: Performed By: #### L [id number] ####[facility] ([facility])[address] [place] [address] 29on 07-16-2023 29 Addended by: LU STEPHENS on: 07/16/2023 03:23 PM Modules accepted: Orders Normal [facility] Documentationon 07-16-2023 Documentation Normal [facility] BASIC METABOLIC PANELon 09-2 Anion gap [Moles/Vol] 13 mmol/L Normal 7-20 [facility] Comment on above: Performed By: #### L [id number] ####[facility] ([facility])[address] [place] [address] Calcium [Mass/Vol] 9.6 mg/dL Normal 8.6-10.3 [facility] Comment on above: Performed By: #### L [id number] ####[facility] ([facility])[address] [place] [address] Chloride [Moles/Vol] 102 mmol/L Normal 98-107 [facility] Comment on above: Performed By: #### L [id number] ####[facility] ([facility])[address] [place] [address] CO2 [Moles/Vol] 25 mmol/L Normal 21-31 [facility] Comment on above: Performed By: #### L [id number] ####[facility] ([facility])[address] [place] [address] Creatinine [Mass/Vol] 1.26 mg/dL High 0.60-1.20 [facility] Comment on above: Performed By: #### L [id number] ####[facility] ([facility])[address] [place] [address] GLOMERULAR FILTRATION RATE ML/MIN/1.73 SQ M.PREDICTED 53.0 mL/min/1.73m*2 Low >60.0 [facility] Comment on above: Result Comment: The [facility]???s estimated glomerular filtration rate (eGFR) will no longer include consideration of race in its calculation. The National Kidney Foundation???s eGFR Task Force developed new recommendations for the estimation of the glomerular filtration rate in the [place] They recommend immediate implementation of the new equation refit without the race variable in all laboratories because the calculation does not include race. In addition to not including race in the calculation and reporting, it included diversity in its development, and has acceptable performance characteristics and potential consequences that do not disproportionately affect any one group of individuals. Performed By: #### L [id number] ####[facility] ([facility])[address] [place] [address] Glucose [Mass/Vol] 128 mg/dL High 70-100 [facility] Comment on above: Performed By: #### L [id number] ####[facility] ([facility])[address] [place] [address] Potassium [Moles/Vol] 3.1 mmol/L Low 3.5-5.1 [facility] Comment on above: Performed By: #### L [id number] ####[facility] ([facility])[address] [place] [address] Sodium [Moles/Vol] 137 mmol/L Normal 136-145 [facility] Comment on above: Performed By: #### L [id number] ####[facility] ([facility])[address] [place] [address] Urea nitrogen [Mass/Vol] 14 mg/dL Normal 7-25 [facility] Comment on above: Performed By: #### L [id number] ####[facility] ([facility])[address] [place] [address] UREA NITROGEN/CREATININE (MASS RATIO) IN SER/PLAS 11.1 Normal [facility] Comment on above: Performed By: #### L [id number] ####[facility] ([facility])[address] [place] [address] CBC WITH AUTO DIFFERENTIALon 06-28-2023 Basophils (Bld) [#/Vol] 0.06 10*3/uL Normal 0.00-0.20 [facility] Comment on above: Performed By: #### L [id number] ####[facility] ([facility])[address] [place] [address] Basophils/100 WBC (Bld) 0.6 % Normal 0.0-1.0 [facility] Comment on above: Performed By: #### L [id number] ####[facility] ([facility])[address] [place] [address] Eosinophils (Bld) [#/Vol] 0.18 10*3/uL Normal 0.00-0.50 [facility] Comment on above: Performed By: #### L [id number] ####[facility] ([facility])[address] [place] [address] Eosinophils/100 WBC (Bld) 1.8 % Normal 0.0-6.0 [facility] Comment on above: Performed By: #### L [id number] ####[facility] ([facility])[address] [place] [address] Erythrocyte distribution width (RBC) [Ratio] 14.5 % Normal 11.5-15.0 [facility] Comment on above: Performed By: #### L [id number] ####[facility] ([facility])[address] [place] [address] ERYTHROCYTE MEAN CORPUSCULAR HEMOGLOBIN CONCENTRATION (G/DL) BY AUTOMATED 33.1 g/dL Normal 32.0-35.0 [facility] Comment on above: Performed By: #### L [id number] ####[facility] ([facility])[address] [place] [address] Hematocrit (Bld) [Volume fraction] 40.5 % Normal 36.0-48.0 [facility] Comment on above: Performed By: #### L [id number] ####[facility] ([facility])[address] [place] [address] Hemoglobin (Bld) [Mass/Vol] 13.4 g/dL Normal 12.0-15.0 [facility] Comment on above: Performed By: #### L [id number] ####[facility] ([facility])[address] [place] [address] Immature granulocytes (Bld) [#/Vol] 0.13 10*3/uL Normal 0.00-0.20 [facility] Comment on above: Performed By: #### L [id number] ####[facility] ([facility])[address] [place] [address] Immature granulocytes/100 WBC (Bld) 1.3 % High 0.0-1.0 [facility] Comment on above: Performed By: #### L [id number] ####[facility] ([facility])[address] [place] [address] Lymphocytes (Bld) [#/Vol] 1.30 10*3/uL Normal 1.20-4.00 [facility] Comment on above: Performed By: #### L [id number] ####[facility] ([facility])[address] [place] [address] Lymphocytes/100 WBC (Bld) 13.3 % Low 20.0-45.0 [facility] Comment on above: Performed By: #### L [id number] ####[facility] ([facility] [place] [address] MCH (RBC) [Entitic mass] 29.2 pg Normal 27.0-33.0 [facility] Comment on above: Performed By: #### L [id number] ####[facility] ([facility])[address] [place] [address] MCV (RBC) [Entitic vol] 88.2 fL Normal 82.0-98.0 [facility] Comment on above: Performed By: #### L [id number] ####[facility] ([facility])[address] [place] [address] Monocytes (Bld) [#/Vol] 0.51 10*3/uL Normal 0.10-1.00 [facility] Comment on above: Performed By: #### L [id number] ####[facility] ([facility])[address] [place] [address] Monocytes/100 WBC (Bld) 5.2 % Normal 5.0-12.0 [facility] Comment on above: Performed By: #### L [id number] ####[facility] ([facility])[address] [place] [address] Neutrophils (Bld) [#/Vol] 7.62 10*3/uL High 1.60-7.60 [facility] Comment on above: Performed By: #### L [id number] ####[facility] ([facility] [place] [address] Neutrophils/100 WBC (Bld) 77.8 % High 40.0-72.0 [facility] Comment on above: Performed By: #### L [id number] ####[facility] ([facility])[address] [place] [address] NRBC (PER 100 WBCS) BY AUTOMATED COUNT 0.0 % Normal 0 [facility] Comment on above: Performed By: #### L [id number] ####[facility] ([facility])[address] [place] [address] PLATELETS (10*3/UL) IN BLOOD AUTOMATED COUNT 334 10*3/uL Normal 150-400 [facility] Comment on above: Performed By: #### L [id number] ####[facility] ([facility])[address] [place] [address] RBC (Bld) [#/Vol] 4.59 10*6/uL Normal 3.80-5.00 [facility] Comment on above: Performed By: #### L [id number] ####[facility] ([facility])[address] [place] [address] WBC (Bld) [#/Vol] 9.80 10*3/uL Normal 4.00-10.60 [facility] Comment on above: Performed By: #### L [id number] ####[facility] ([facility] [place] [address] HEPATIC FUNCTION PANELon Albumin [Mass/Vol] 4.7 g/dL Normal 3.5-5.7 [facility] Comment on above: Performed By: #### L [id number] ####[facility] ([facility])[address] [place] [address] ALP [Catalytic activity/Vol] 91 U/L Normal 34-104 [facility] Comment on above: Performed By: #### L [id number] ####[facility] ([facility])[address] [place] [address] ALT [Catalytic activity/Vol] 29 U/L Normal 7-52 [facility] Comment on above: Performed By: #### L [id number] ####[facility] ([facility])[address] [place] [address] AST [Catalytic activity/Vol] 25 U/L Normal 13-39 [facility] Comment on above: Performed By: #### L [id number] ####[facility] ([facility])[address] [place] [address] Bilirubin [Mass/Vol] 0.5 mg/dL Normal 0.3-1.0 [facility] Comment on above: Performed By: #### L [id number] ####[facility] ([facility])[address] [place] [address] Magnesium [Mass/Vol] 0.1 mg/dL Normal 0-0.2 [facility] Comment on above: Performed By: #### L [id number] ####[facility] ([facility])[address] [place] [address] Protein [Mass/Vol] 7.9 g/dL Normal 6.0-8.3 [facility] Comment on above: Performed By: #### L [id number] ####[facility] ([facility])[address] [place] [address] LIPID PANELon 06-28-2023 CHOL/HDL 4.1 mg/dL Normal [facility] Comment on above: Performed By: #### L [id number] ####[facility] ([facility])[address] [place] [address] Cholesterol [Mass/Vol] 192 mg/dL Normal 120-[facility] above: Performed By: #### L [id number] ####[facility] ([facility] [place] [address] Magnesium [Mass/Vol] 228 mg/dL High 40-149 [facility] Comment on above: Result Comment: TRIG LYCERIDE REFERENCE RANGE:20 YEARS AND OLDER CARDIOVASCULAR RISKLESS THAN 150 mg/dL LOW [id number] TO 199 mg/dL BORDERLINE [id number] mg/dL AND GREATER HIGH RISK Performed By: #### L [id number] ####[facility])[address] [place] [address] Magnesium [Mass/Vol] 99 mg/dL Normal 0-160 [facility] Comment on above: Performed By: #### L [id number] ####[facility])[address] [place] [address] Magnesium [Mass/Vol] 47 mg/dL Normal 23-92 [facility] Comment on above: Performed By: #### L [id number] ####[facility])[address] [place] [address] NON HDL CHOL. (LDL+VLDL) 145 Normal [facility] Comment on above: Performed By: #### L [id number] ####[facility])[address] [place] [address] TOTAL VLDL-C 46 mg/dL High 0-40 [facility] Comment on above: Performed By: #### L [id number] ####[facility])[address] [place] [address] Labon 06-28-2023 Lab Normal [facility] MAGNESIUMon 06-28-2023 Magnesium [Mass/Vol] 1.4 mg/dL Low 1.9-2.7 [facility] Comment on above: Performed By: #### L [id number] ####[facility])[address] [place] [address] PHOSPHORUSon 06-28-2023 Magnesium [Mass/Vol] 2.7 mg/dL Normal 2.5-5.0 [facility] Comment on above: Performed By: #### L [id number] ####[facility] ([facility] [place] [address] TACROLIMUS LEVELon Tacrolimus (Bld) [Mass/Vol] 6.9 ng/mL Normal 5.0-20.0 [facility] Comment on above: Result Comment: The [employer] Tacrolimus assay is a delayed one-step immunoassay for the quantitative determination of tacrolimus in human whole blood using the chemiluminescent microparticle immunoassay (CMIA) technology with flexible assay protocols, referred to as Chemiflex. Performed By: #### L [id number] ####[facility] ([facility])[address] [place] [address] URIC ACIDon 06-28-2023 Magnesium [Mass/Vol] 5.0 mg/dL Normal 2.3-6.6 [facility] Comment on above: Performed By: #### L [id number] ####[facility] ([facility])[address] [place] [address] 36on 06-23-2023 36 I reviewed the case with the resident. I agree with the assessment and plan as documented in the resident's note. Ming Kidd, PharmD, BCTXP Normal [facility] Telephoneon 06-17-2023 Telephone Normal [facility] BASIC METABOLIC PANELon 05-07 Anion gap [Moles/Vol] 13 mmol/L Normal 7-20 [facility] Comment on above: Performed By: #### L [id number] ####[facility])[address] [place] [address] Calcium [Mass/Vol] 9.5 mg/dL Normal 8.6-10.3 [facility] Comment on above: Performed By: #### L [id number] ####[facility])[address] [place] [address] Chloride [Moles/Vol] 101 mmol/L Normal 98-107 [facility] Comment on above: Performed By: #### L [id number] ####[facility] [place] [address] CO2 [Moles/Vol] 27 mmol/L Normal 21-31 [facility] Comment on above: Performed By: #### L [id number] ####[facility] [place] [address] Creatinine [Mass/Vol] 1.28 mg/dL High 0.60-1.20 [facility] Comment on above: Performed By: #### L [id number] ####[facility])[address] [place] [address] GLOMERULAR FILTRATION RATE ML/MIN/1.73 SQ M.PREDICTED 52.0 mL/min/1.73m*2 Low >60.0 [facility] Comment on above: Result Comment: [facility]???s estimated glomerular filtration rate (eGFR) will no longer include consideration of race in its calculation. The National Kidney Foundation???s eGFR Task Force developed new recommendations for the estimation of the glomerular filtration rate in the [place] They recommend immediate implementation of the new equation refit without the race variable in all laboratories because the calculation does not include race. In addition to not including race in the calculation and reporting, it included diversity in its development, and has acceptable performance characteristics and potential consequences that do not disproportionately affect any one group of individuals. Performed By: #### L [id number] ####[facility] ([facility])[address] [place] [address] Glucose [Mass/Vol] 163 mg/dL High 70-100 [facility] Comment on above: Performed By: #### L [id number] ####[facility] [place] [address] Potassium [Moles/Vol] 3.1 mmol/L Low 3.5-5.1 [facility] Comment on above: Performed By: #### L [id number] ####[facility])[address] [place] [address] Sodium [Moles/Vol] 138 mmol/L Normal 136-145 [facility] Comment on above: Performed By: #### L [id number] ####[facility] ([facility])[address] [place] [address] Urea nitrogen [Mass/Vol] 18 mg/dL Normal 7-25 [facility] Comment on above: Performed By: #### L [id number] ####[facility] ([facility] [place] [address] UREA NITROGEN/CREATININE (MASS RATIO) IN SER/PLAS 14.1 Normal [facility] Comment on above: Performed By: #### L [id number] ####[facility] ([facility] [place] [address] CBC WITH AUTO DIFFERENTIALon 05-29-2023 Basophils (Bld) [#/Vol] 0.06 10*3/uL Normal 0.00-0.20 [facility] Comment on above: Performed By: #### L [id number] ####[facility] ([facility])[address] [place], [place] [address] Basophils/100 WBC (Bld) 0.6 % Normal 0.0-1.0 [facility] Comment on above: Performed By: #### L [id number] ####[facility] ([facility])[address] [place] [address] Eosinophils (Bld) [#/Vol] 0.18 10*3/uL Normal 0.00-0.50 [facility] Comment on above: Performed By: #### L [id number] ####[facility] ([facility] [place] [address] Eosinophils/100 WBC (Bld) 1.9 % Normal 0.0-6.0 [facility] Comment on above: Performed By: #### L [id number] ####[facility] ([facility])[address] [place] [address] Erythrocyte distribution width (RBC) [Ratio] 14.3 % Normal 11.5-15.0 [facility] Comment on above: Performed By: #### L [id number] ####[facility] ([facility] [place] [address] ERYTHROCYTE MEAN CORPUSCULAR HEMOGLOBIN CONCENTRATION (G/DL) BY AUTOMATED 32.4 g/dL Normal 32.0-35.0 [facility] Comment on above: Performed By: #### L [id number] ####[facility] ([facility])[address] [place] [address] Hematocrit (Bld) [Volume fraction] 37.4 % Normal 36.0-48.0 [facility] Comment on above: Performed By: #### L [id number] ####[facility] ([facility])[address] [place] [address] Hemoglobin (Bld) [Mass/Vol] 12.1 g/dL Normal 12.0-15.0 [facility] Comment on above: Performed By: #### L [id number] ####[facility] ([facility])[address] [place] [address] Immature granulocytes (Bld) [#/Vol] 0.17 10*3/uL Normal 0.00-0.20 [facility] Comment on above: Performed By: #### L [id number] ####[facility] ([facility])[address] [place] [address] Immature granulocytes/100 WBC (Bld) 1.8 % High 0.0-1.0 [facility] Comment on above: Performed By: #### L [id number] ####[facility] ([facility])[address] [place] [address] Lymphocytes (Bld) [#/Vol] 1.30 10*3/uL Normal 1.20-4.00 [facility] Comment on above: Performed By: #### L [id number] ####[facility] ([facility])[address] [place] [address] Lymphocytes/100 WBC (Bld) 13.4 % Low 20.0-45.0 [facility] Comment on above: Performed By: #### L [id number] ####[facility] ([facility])[address] [place] [address] MCH (RBC) [Entitic mass] 28.8 pg Normal 27.0-33.0 [facility] Comment on above: Performed By: #### L [id number] ####[facility] [place] [address] MCV (RBC) [Entitic vol] 89.0 fL Normal 82.0-98.0 [facility] Comment on above: Performed By: #### L [id number] ####[facility] [place] [address] Monocytes (Bld) [#/Vol] 0.56 10*3/uL Normal 0.10-1.00 [facility] Comment on above: Performed By: #### L [id number] ####[facility] [place] [address] Monocytes/100 WBC (Bld) 5.8 % Normal 5.0-12.0 [facility] Comment on above: Performed By: #### L [id number] ####[facility] [place] [address] Neutrophils (Bld) [#/Vol] 7.43 10*3/uL Normal 1.60-7.60 [facility] Comment on above: Performed By: #### L [id number] ####[facility] [place] [address] Neutrophils/100 WBC (Bld) 76.5 % High 40.0-72.0 [facility] Comment on above: Performed By: #### L [id number] ####[facility] [place] [address] NRBC (PER 100 WBCS) BY AUTOMATED COUNT 0.0 % Normal 0 [facility] Comment on above: Performed By: #### L [id number] ####[facility] ([facility])[address] [place] [address] PLATELETS (10*3/UL) IN BLOOD AUTOMATED COUNT 331 10*3/uL Normal 150-400 [facility] Comment on above: Performed By: #### L [id number] ####[facility] [place] [address] RBC (Bld) [#/Vol] 4.20 10*6/uL Normal 3.80-5.00 [facility] Comment on above: Performed By: #### L [id number] ####[facility] [place] [address] WBC (Bld) [#/Vol] 9.70 10*3/uL Normal 4.00-10.60 [facility] Comment on above: Performed By: #### L [id number] ####[facility] [place] [address] HEPATIC FUNCTION PANELon Albumin [Mass/Vol] 4.5 g/dL Normal 3.5-5.7 [facility] Comment on above: Performed By: #### L [id number] ####[facility] [place] [address] ALP [Catalytic activity/Vol] 87 U/L Normal 34-104 [facility] Comment on above: Performed By: #### L [id number] ####[facility] [place] [address] ALT [Catalytic activity/Vol] 29 U/L Normal 7-52 [facility] Comment on above: Performed By: #### L [id number] ####[facility] [place] [address] AST [Catalytic activity/Vol] 24 U/L Normal 13-39 [facility] Comment on above: Performed By: #### L [id number] ####[facility] [place] [address] Bilirubin [Mass/Vol] 0.4 mg/dL Normal 0.3-1.0 [facility] Comment on above: Performed By: #### L [id number] ####[facility] [place] [address] Magnesium [Mass/Vol] 0.0 mg/dL Normal 0-0.2 [facility] Comment on above: Performed By: #### L [id number] ####[facility] [place] [address] Protein [Mass/Vol] 7.4 g/dL Normal 6.0-8.3 [facility] Comment on above: Performed By: #### L [id number] ####[facility] [place] [address] Labon 05-29-2023 Lab Normal [facility] MAGNESIUMon 05-29-2023 Magnesium [Mass/Vol] 1.7 mg/dL Low 1.9-2.7 [facility] Comment on above: Performed By: #### L [id number] ####[facility] [place] [address] PHOSPHORUSon 05-29-2023 Magnesium [Mass/Vol] 2.8 mg/dL Normal 2.5-5.0 [facility] Comment on above: Performed By: #### L [id number] ####[facility])[place] [address] TACROLIMUS LEVELon Tacrolimus (Bld) [Mass/Vol] 5.6 ng/mL Normal 5.0-20.0 [facility] Comment on above: Result Comment: The [employer] Tacrolimus assay is a delayed one-step immunoassay for the quantitative determination of tacrolimus in human whole blood using the chemiluminescent microparticle immunoassay (CMIA) technology with flexible assay protocols, referred to as Chemiflex. Performed By: #### L [id number] ####[facility])[place] [address] URIC ACIDon 05-29-2023 Magnesium [Mass/Vol] 5.0 mg/dL Normal 2.3-6.6 [facility] Comment on above: Performed By: #### L [id number] ####[facility] [place] [address] BASIC METABOLIC PANELon 07-2 Anion gap [Moles/Vol] 13 mmol/L Normal 7-20 [facility] Comment on above: Performed By: #### L [id number] ####[facility] ([facility])[address] [place] [address] Calcium [Mass/Vol] 9.5 mg/dL Normal 8.6-10.3 [facility] Comment on above: Performed By: #### L [id number] ####[facility] ([facility])[address] [place] [address] Chloride [Moles/Vol] 104 mmol/L Normal 98-107 [facility] Comment on above: Performed By: #### L [id number] ####[facility])[address] [place] [address] CO2 [Moles/Vol] 22 mmol/L Normal 21-31 [facility] Comment on above: Performed By: #### L [id number] ####[facility])[address] [place] [address] Creatinine [Mass/Vol] 1.25 mg/dL High 0.60-1.20 [facility] Comment on above: Performed By: #### L [id number] ####[facility] [place] [address] GLOMERULAR FILTRATION RATE ML/MIN/1.73 SQ M.PREDICTED 53.5 mL/min/1.73m*2 Low >60.0 [facility] Comment on above: Result Comment: The [facility]???s estimated glomerular filtration rate (eGFR) will no longer include consideration of race in its calculation. The National Kidney Foundation???s eGFR Task Force developed new recommendations for the estimation of the glomerular filtration rate in the [place] They recommend immediate implementation of the new equation refit without the race variable in all laboratories because the calculation does not include race. In addition to not including race in the calculation and reporting, it included diversity in its development, and has acceptable performance characteristics and potential consequences that do not disproportionately affect any one group of individuals. Performed By: #### L [id number] ####[facility] [place] [address] Glucose [Mass/Vol] 189 mg/dL High 70-100 [facility] Comment on above: Performed By: #### L [id number] ####[facility] [place] [address] Potassium [Moles/Vol] 4.0 mmol/L Normal 3.5-5.1 [facility] Comment on above: Performed By: #### L [id number] ####[facility] [place] [address] Sodium [Moles/Vol] 135 mmol/L Low 136-145 [facility] Comment on above: Performed By: #### L [id number] ####[facility])[address] [place] [address] Urea nitrogen [Mass/Vol] 19 mg/dL Normal 7-25 [facility] Comment on above: Performed By: #### L [id number] ####[facility])[address] [place] [address] UREA NITROGEN/CREATININE (MASS RATIO) IN SER/PLAS 15.2 Normal [facility] Comment on above: Performed By: #### L [id number] ####[facility])[address] [place] [address] CBC WITH AUTO DIFFERENTIALon 04-30-2023 Basophils (Bld) [#/Vol] 0.05 10*3/uL Normal 0.00-0.20 [facility] Comment on above: Performed By: #### L [id number] ####[facility] [place] [address] Basophils/100 WBC (Bld) 0.7 % Normal 0.0-1.0 [facility] Comment on above: Performed By: #### L [id number] ####[facility] [place] [address] Eosinophils (Bld) [#/Vol] 0.16 10*3/uL Normal 0.00-0.50 [facility] Comment on above: Performed By: #### L [id number] ####[facility] ([facility])[address] [place] [address] Eosinophils/100 WBC (Bld) 2.1 % Normal 0.0-6.0 [facility] Comment on above: Performed By: #### L [id number] ####[facility] ([facility])[address] [place] [address] Erythrocyte distribution width (RBC) [Ratio] 14.3 % Normal 11.5-15.0 [facility] Comment on above: Performed By: #### L [id number] ####[facility] ([facility])[address] [place] [address] ERYTHROCYTE MEAN CORPUSCULAR HEMOGLOBIN CONCENTRATION (G/DL) BY AUTOMATED 33.1 g/dL Normal 32.0-35.0 [facility] Comment on above: Performed By: #### L [id number] ####[facility] ([facility])[address] [place] [address] Hematocrit (Bld) [Volume fraction] 35.9 % Low 36.0-48.0 [facility] Comment on above: Performed By: #### L [id number] ####[facility] ([facility])[address] [place] [address] Hemoglobin (Bld) [Mass/Vol] 11.9 g/dL Low 12.0-15.0 [facility] Comment on above: Performed By: #### L [id number] ####[facility] [place] [address] Immature granulocytes (Bld) [#/Vol] 0.12 10*3/uL Normal 0.00-0.20 [facility] Comment on above: Performed By: #### L [id number] ####[facility])[address] [place] [address] Immature granulocytes/100 WBC (Bld) 1.6 % High 0.0-1.0 [facility] Comment on above: Performed By: #### L [id number] ####[facility] [place] [address] Lymphocytes (Bld) [#/Vol] 1.30 10*3/uL Normal 1.20-4.00 [facility] Comment on above: Performed By: #### L [id number] ####[facility])[address] [place] [address] Lymphocytes/100 WBC (Bld) 16.9 % Low 20.0-45.0 [facility] Comment on above: Performed By: #### L [id number] ####[facility])[address] [place] [address] MCH (RBC) [Entitic mass] 29.6 pg Normal 27.0-33.0 [facility] Comment on above: Performed By: #### L [id number] ####[facility] [place] [address] MCV (RBC) [Entitic vol] 89.3 fL Normal 82.0-98.0 [facility] Comment on above: Performed By: #### L [id number] ####[facility] [place] [address] Monocytes (Bld) [#/Vol] 0.46 10*3/uL Normal 0.10-1.00 [facility] Comment on above: Performed By: #### L [id number] ####[facility] ([facility])[address] [place] [address] Monocytes/100 WBC (Bld) 6.0 % Normal 5.0-12.0 [facility] Comment on above: Performed By: #### L [id number] ####[facility])[address] [place] [address] Neutrophils (Bld) [#/Vol] 5.58 10*3/uL Normal 1.60-7.60 [facility] Comment on above: Performed By: #### L [id number] ####[facility])[address] [place] [address] Neutrophils/100 WBC (Bld) 72.7 % High 40.0-72.0 [facility] Comment on above: Performed By: #### L [id number] ####[facility])[address] [place] [address] NRBC (PER 100 WBCS) BY AUTOMATED COUNT 0.0 % Normal 0 [facility] Comment on above: Performed By: #### L [id number] ####[facility])[address] [place], [place] [address] PLATELETS (10*3/UL) IN BLOOD AUTOMATED COUNT 295 10*3/uL Normal 150-400 [facility] Comment on above: Performed By: #### L [id number] ####[facility])[address] [place] [address] RBC (Bld) [#/Vol] 4.02 10*6/uL Normal 3.80-5.00 [facility] Comment on above: Performed By: #### L [id number] ####[facility])[address] [place] [address] WBC (Bld) [#/Vol] 7.67 10*3/uL Normal 4.00-10.60 [facility] Comment on above: Performed By: #### L [id number] ####[facility])[address] [place] [address] HEPATIC FUNCTION PANELon Albumin [Mass/Vol] 4.6 g/dL Normal 3.5-5.7 [facility] Comment on above: Performed By: #### L [id number] ####[facility] [place] [address] ALP [Catalytic activity/Vol] 82 U/L Normal 34-104 [facility] Comment on above: Performed By: #### L [id number] ####[facility])[address] [place] [address] ALT [Catalytic activity/Vol] 25 U/L Normal 7-52 [facility] Comment on above: Performed By: #### L [id number] ####[facility])[address] [place] [address] AST [Catalytic activity/Vol] 19 U/L Normal 13-39 [facility] Comment on above: Performed By: #### L [id number] ####[facility] [place] [address] Bilirubin [Mass/Vol] 0.5 mg/dL Normal 0.3-1.0 [facility] Comment on above: Performed By: #### L [id number] ####[facility] [place] [address] Magnesium [Mass/Vol] 0.1 mg/dL Normal 0-0.2 [facility] Comment on above: Performed By: #### L [id number] ####[facility] [place] [address] Protein [Mass/Vol] 7.2 g/dL Normal 6.0-8.3 [facility] Comment on above: Performed By: #### L [id number] ####[facility])[address] [place] [address] Labon 04-30-2023 Lab Normal [facility] MAGNESIUMon 04-30-2023 Magnesium [Mass/Vol] 1.6 mg/dL Low 1.9-2.7 [facility] Comment on above: Performed By: #### L [id number] ####[facility])[address] [place] [address] PANEL REACTIVE ANTIBODYon HOLD SPECIMEN Hold for add-ons. Normal [facility] Comment on above: Result Comment: Auto resulted. Performed By: #### L [id number] ####[facility] TISSUE TYPING (HISTOTRAC)[address] [place] [address] [place] PHOSPHORUSon 04-30-2023 Magnesium [Mass/Vol] 2.3 mg/dL Low 2.5-5.0 [facility] Comment on above: Performed By: #### L [id number] ####[facility] ([facility])[address] [place] [address] SINGLE ANTIGEN CLASS Ion AB SCREEN COMMENTS No Class I donor spe cific antibody identified Normal [facility] Comment on above: Performed By: #### L [id number] ####[facility] TISSUE TYPING ([facility]ISTOTRAC)[address] [place] [address] [facility] CLASS I TESTED DATE Normal [facility] Comment on above: Performed By: #### L [id number] ####[facility] TISSUE TYPING (HISTOTRAC)[address] [place] [address] [facility] SIGNED BY Signed by Sree escamilla C[facility] MT(ASCP), [employer] Transplant Immunology [facility] Comment on above: Result Comment: Clas s I Antigen Microbeads Performed By: #### L [id number] ####[facility] TISSUE TYPING (HISTOTRAC)[address] [place] [address] [facility] Performed By: #### L [id number] ####[facility] TISSUE TYPING (HISTOTRAC)[address] [place] [address] [facility] SINGLE ANTIGEN CLASS 1 TEST METHOD Class I Single Antigen Normal [facility] Comment on above: Performed By: #### L [id number] ####[facility] TISSUE TYPING (HISTOTRAC)[address] [place] [address] [place] SINGLE ANTIGEN CLASS IIon AB SCREEN COMMENTS No Class II donor specific antibody identified Normal [facility] Comment on above: Performed By: #### L [id number] ####[facility] TISSUE TYPING (HISTOTRAC)[address] [place] [address] [place] CLASS II TESTED DATE [facility] Comment on above: Performed By: #### L [id number] ####[facility] TISSUE TYPING (HISTOTRAC)[address] [place] [address] [place] SINGLE ANTIGEN CLASS 2 TEST METHOD Class II Single Antigen Normal [facility] Comment on above: Result Comment: Clas s II Antigen Microbeads Performed By: #### L [id number] ####[facility] TISSUE TYPING (HISTOTRAC)[address] [place] [address] [facility] TACROLIMUS LEVELon Tacrolimus (Bld) [Mass/Vol] 9.3 ng/mL Normal 5.0-20.0 [facility] Comment on above: Result Comment: The [employer] Tacrolimus assay is a delayed one-step immunoassay for the quantitative determination of tacrolimus in human whole blood using the chemiluminescent microparticle immunoassay (CMIA) technology with flexible assay protocols, referred to as Chemiflex. Performed By: #### L [id number] ####[facility] [place] [address] URIC ACIDon 04-30-2023 Magnesium [Mass/Vol] 4.9 mg/dL Normal 2.3-6.6 [facility] Comment on above: Performed By: #### L [id number] ####[facility] [place] [address] Follow-Upon 04-16-2023 Follow-Up Normal [facility] BASIC METABOLIC PANELon 03-07 Anion gap [Moles/Vol] 14 mmol/L Normal 7-20 [facility] Comment on above: Performed By: #### L [id number] ####[facility] [place] [address] Calcium [Mass/Vol] 9.4 mg/dL Normal 8.6-10.3 [facility] Comment on above: Performed By: #### L [id number] ####[facility] ([facility])[address] [place] [address] Chloride [Moles/Vol] 104 mmol/L Normal 98-107 [facility] Comment on above: Performed By: #### L [id number] ####[facility] ([facility])[address] [place] [address] CO2 [Moles/Vol] 24 mmol/L Normal 21-31 [facility] Comment on above: Performed By: #### L [id number] ####[facility] ([facility])[address] [place] [address] Creatinine [Mass/Vol] 1.26 mg/dL High 0.60-1.20 [facility] Comment on above: Performed By: #### L [id number] ####[facility] ([facility])[address] [place] [address] GLOMERULAR FILTRATION RATE ML/MIN/1.73 SQ M.PREDICTED 53.0 mL/min/1.73m*2 Low >60.0 [facility] Comment on above: Result Comment: The [facility]???s estimated glomerular filtration rate (eGFR) will no longer include consideration of race in its calculation. The National Kidney Foundation???s eGFR Task Force developed new recommendations for the estimation of the glomerular filtration rate in the [place] They recommend immediate implementation of the new equation refit without the race variable in all laboratories because the calculation does not include race. In addition to not including race in the calculation and reporting, it included diversity in its development, and has acceptable performance characteristics and potential consequences that do not disproportionately affect any one group of individuals. Performed By: #### L [id number] ####[facility] [place] [address] Glucose [Mass/Vol] 155 mg/dL High 70-100 [facility] Comment on above: Performed By: #### L [id number] ####[facility] ([facility])[address] [place] [address] Potassium [Moles/Vol] 3.6 mmol/L Normal 3.5-5.1 [facility] Comment on above: Performed By: #### L [id number] ####[facility] [place] [address] Sodium [Moles/Vol] 138 mmol/L Normal 136-145 [facility] Comment on above: Performed By: #### L [id number] ####[facility] [place] [address] Urea nitrogen [Mass/Vol] 19 mg/dL Normal 7-25 [facility] Comment on above: Performed By: #### L [id number] ####[facility] [place] [address] UREA NITROGEN/CREATININE (MASS RATIO) IN SER/PLAS 15.1 Normal [facility] Comment on above: Performed By: #### L [id number] ####[facility] [place] [address] CBC WITH AUTO DIFFERENTIALon 03-31-2023 Basophils (Bld) [#/Vol] 0.07 10*3/uL Normal 0.00-0.20 [facility] Comment on above: Performed By: #### L [id number] ####[facility])[address] [place] [address] Basophils/100 WBC (Bld) 0.9 % Normal 0.0-1.0 [facility] Comment on above: Performed By: #### L [id number] ####[facility] [place] [address] Eosinophils (Bld) [#/Vol] 0.22 10*3/uL Normal 0.00-0.50 [facility] Comment on above: Performed By: #### L [id number] ####[facility] [place] [address] Eosinophils/100 WBC (Bld) 2.9 % Normal 0.0-6.0 [facility] Comment on above: Performed By: #### L [id number] ####[facility])[address] [place] [address] Erythrocyte distribution width (RBC) [Ratio] 14.0 % Normal 11.5-15.0 [facility] Comment on above: Performed By: #### L [id number] ####[facility] ([facility])[address] [place] [address] ERYTHROCYTE MEAN CORPUSCULAR HEMOGLOBIN CONCENTRATION (G/DL) BY AUTOMATED 32.1 g/dL Normal 32.0-35.0 [facility] Comment on above: Performed By: #### L [id number] ####[facility] ([facility])[address] [place] [address] Hematocrit (Bld) [Volume fraction] 36.5 % Normal 36.0-48.0 [facility] Comment on above: Performed By: #### L [id number] ####[facility] ([facility])[address] [place] [address] Hemoglobin (Bld) [Mass/Vol] 11.7 g/dL Low 12.0-15.0 [facility] Comment on above: Performed By: #### L [id number] ####[facility] ([facility])[address] [place] [address] Immature granulocytes (Bld) [#/Vol] 0.19 10*3/uL Normal 0.00-0.20 [facility] Comment on above: Performed By: #### L [id number] ####[facility] ([facility])[address] [place] [address] Immature granulocytes/100 WBC (Bld) 2.5 % High 0.0-1.0 [facility] Comment on above: Performed By: #### L [id number] ####[facility] ([facility])[address] [place] [address] Lymphocytes (Bld) [#/Vol] 1.44 10*3/uL Normal 1.20-4.00 [facility] Comment on above: Performed By: #### L [id number] ####[facility] ([facility])[address] [place] [address] Lymphocytes/100 WBC (Bld) 19.0 % Low 20.0-45.0 [facility] Comment on above: Performed By: #### L [id number] ####[facility] ([facility])[address] [place] [address] MCH (RBC) [Entitic mass] 29.5 pg Normal 27.0-33.0 [facility] Comment on above: Performed By: #### L [id number] ####[facility] ([facility])[address] [place] [address] MCV (RBC) [Entitic vol] 91.9 fL Normal 82.0-98.0 [facility] Comment on above: Performed By: #### L [id number] ####[facility] ([facility])[address] [place] [address] Monocytes (Bld) [#/Vol] 0.54 10*3/uL Normal 0.10-1.00 [facility] Comment on above: Performed By: #### L [id number] ####[facility] ([facility])[address] [place] [address] Monocytes/100 WBC (Bld) 7.1 % Normal 5.0-12.0 [facility] Comment on above: Performed By: #### L [id number] ####[facility] ([facility])[address] [place] [address] Neutrophils (Bld) [#/Vol] 5.12 10*3/uL Normal 1.60-7.60 [facility] Comment on above: Performed By: #### L [id number] ####[facility] ([facility])[address] [place] [address] Neutrophils/100 WBC (Bld) 67.6 % Normal 40.0-72.0 [facility] Comment on above: Performed By: #### L [id number] ####[facility] ([facility])[address] [place] [address] NRBC (PER 100 WBCS) BY AUTOMATED COUNT 0.0 % Normal 0 [facility] Comment on above: Performed By: #### L [id number] ####[facility] ([facility])[address] [place] [address] PLATELETS (10*3/UL) IN BLOOD AUTOMATED COUNT 274 10*3/uL Normal 150-400 [facility] Comment on above: Performed By: #### L [id number] ####[facility] [place] [address] RBC (Bld) [#/Vol] 3.97 10*6/uL Normal 3.80-5.00 [facility] Comment on above: Performed By: #### L [id number] ####[facility] [place] [address] WBC (Bld) [#/Vol] 7.58 10*3/uL Normal 4.00-10.60 [facility] Comment on above: Performed By: #### L [id number] ####[facility] [place] [address] HEPATIC FUNCTION PANELon Albumin [Mass/Vol] 4.4 g/dL Normal 3.5-5.7 [facility] Comment on above: Performed By: #### L [id number] ####[facility] [place] [address] ALP [Catalytic activity/Vol] 80 U/L Normal 34-104 [facility] Comment on above: Performed By: #### L [id number] ####[facility] [place] [address] ALT [Catalytic activity/Vol] 19 U/L Normal 7-52 [facility] Comment on above: Performed By: #### L [id number] ####[facility] [place] [address] AST [Catalytic activity/Vol] 17 U/L Normal 13-39 [facility] Comment on above: Performed By: #### L [id number] ####[facility] [place] [address] Bilirubin [Mass/Vol] 0.4 mg/dL Normal 0.3-1.0 [facility] Comment on above: Performed By: #### L [id number] ####[facility] (BE[facility])[address] [place] [address] Magnesium [Mass/Vol] 0.1 mg/dL Normal 0-0.2 [facility] Comment on above: Performed By: #### L [id number] ####[facility] (BEAKER)[address] [place] [address] Protein [Mass/Vol] 7.4 g/dL Normal 6.0-8.3 [facility] Comment on above: Performed By: #### L [id number] ####[facility] ([employer])[address] [place] [address] LIPID PANELon 03-31-2023 CHOL/HDL 4.9 mg/dL Normal [facility] Comment on above: Performed By: #### L [id number] ####[facility] ([employer] [employer])[address] [place] [address] Cholesterol [Mass/Vol] 240 mg/dL High 120-200 [facility] Comment on above: Performed By: #### L [id number] ####[facility] ([employer])[address] [place] [address] Magnesium [Mass/Vol] 274 mg/dL High 40-149 [facility] Comment on above: Result Comment: TRIG LYCERIDE REFERENCE RANGE:20 YEARS AND OLDER CARDIOVASCULAR RISKLESS THAN 150 mg/dL LOW [id number] TO 199 mg/dL BORDERLINE ETUP494 mg/dL AND GREATER HIGH RISK Performed By: #### L [id number] ####[facility] (BEAKER)[address] [place] [address] Magnesium [Mass/Vol] 136 mg/dL Normal 0-160 [facility] Comment on above: Performed By: #### L [id number] ####[facility] (BE[facility]ER)[address] [place] [address] Magnesium [Mass/Vol] 49 mg/dL Normal 23-92 [facility] Comment on above: Performed By: #### L [id number] ####[facility] ([employer])[address] [place] [address] NON HDL CHOL. (LDL+VLDL) 191 Normal [facility] Comment on above: Performed By: #### L [id number] ####[facility] ([facility])[address] [place] [address] TOTAL VLDL-C 55 mg/dL High 0-40 [facility] Comment on above: Performed By: #### L [id number] ####[facility] ([facility])[address] [place] [address] Labon 03-31-2023 Lab Normal [facility] MAGNESIUMon 03-31-2023 Magnesium [Mass/Vol] 1.5 mg/dL Low 1.9-2.7 [facility] Comment on above: Performed By: #### L [id number] ####[facility] ([facility])[place] [address] PANEL REACTIVE ANTIBODYon HOLD SPECIMEN Hold for add-ons. Normal [facility] Comment on above: Result Comment: Auto resulted. Performed By: #### L [id number] ####[facility] TISSUE TYPING ([place] [address] [place] PHOSPHORUSon 03-31-2023 Magnesium [Mass/Vol] 2.6 mg/dL Normal 2.5-5.0 [facility] Comment on above: Performed By: #### L [id number] ####[facility] ([facility])[place] [address] SINGLE ANTIGEN CLASS Ion AB SCREEN COMMENTS No Class I donor spe cific antibody identified Normal [facility] Comment on above: Performed By: #### L [id number] ####[facility] TISSUE TYPING (HISTOTRAC)[place] [place] [address] [place] CLASS I TESTED DATE [id number] Normal [facility] Comment on above: Performed By: #### L [id number] ####[facility] TISSUE TYPING (HISTOTRAC)[address] SINGLE ANTIGEN CLASS 1 TEST METHOD Class I Single Antigen Normal [facility] Comment on above: Performed By: #### L [id number] ####[facility] TISSUE TYPING (HISTOTRAC)[address] SINGLE ANTIGEN CLASS IIon AB SCREEN COMMENTS No Class II donor specific antibody identified [facility] Comment on above: Performed By: #### L [id number] ####[facility] TISSUE TYPING (HISTOTRAC)[address] CLASS II TESTED DATE [id number] [facility] Comment on above: Performed By: #### L [id number] ####[facility] TISSUE TYPING (HISTOTRAC)[address] [place] [address] SIGNED BY Signed by Sree escamilla CHT([facility]) PARKER(ASCP), Refinery Operator [employer] Plant Transplant Immunology [facility] Comment on above: Performed By: #### L [id number] ####[facility] TISSUE TYPING (HISTOTRAC)[address] [place], [place] [address] Result Comment: Clas s I Antigen Microbeads Performed By: #### L [id number] ####[facility] TISSUE TYPING (HISTOTRAC)[address] [place], [place] [address] SINGLE ANTIGEN CLASS 2 TEST METHOD Class II Single Antigen Normal [facility] Comment on above: Result Comment: Clas s II Antigen Microbeads Performed By: #### L [id number] ####[facility] TISSUE TYPING (HISTOTRAC)[address] TACROLIMUS LEVELon Tacrolimus (Bld) [Mass/Vol] 6.2 ng/mL Normal 5.0-20.0 [facility] Comment on above: Result Comment: The MARC[employer] Tacrolimus assay is a delayed one-step immunoassay for the quantitative determination of tacrolimus in human whole blood using the chemiluminescent microparticle immunoassay (CMIA) technology with flexible assay protocols, referred to as Chemiflex. Performed By: #### L [id number] ####[facility] (BEAKER)[address] [place] [address] URIC ACIDon 03-31-2023 Magnesium [Mass/Vol] 5.3 mg/dL Normal 2.3-6.6 [facility] Comment on above: Performed By: #### L [id number] ####[facility] (BEAKER)[address] [place] [address] 36on 02-28-2023 36 Refill is too soon, just sent over with 3 refills Normal [facility] Orders Onlyon 02-28-2023 Orders Only Normal [facility] BASIC METABOLIC PANELon 02-04 Anion gap [Moles/Vol] 13 mmol/L Normal 7-20 [facility] Comment on above: Performed By: #### L [id number] ####[facility] (BEAKER)[address] [place] [address] Calcium [Mass/Vol] 8.7 mg/dL Normal 8.6-10.3 [facility] Comment on above: Performed By: #### L [id number] ####[facility] (BEAKER)[address] [place] [address] Chloride [Moles/Vol] 104 mmol/L Normal 98-107 [facility] Comment on above: Performed By: #### L [id number] ####[facility] (BEAKER)[address] [place] [address] CO2 [Moles/Vol] 23 mmol/L Normal 21-31 [facility] Comment on above: Performed By: #### L [id number] ####[facility] (BEAKER)[address] [place] [address] Creatinine [Mass/Vol] 1.21 mg/dL High 0.60-1.20 [facility] Comment on above: Performed By: #### L [id number] ####[facility] (BEAKER)[address] [place] [address] GLOMERULAR FILTRATION RATE ML/MIN/1.73 SQ M.PREDICTED 55.6 mL/min/1.73m*2 Low >60.0 [facility] Comment on above: Result Comment: The [facility]???s estimated glomerular filtration rate (eGFR) will no longer include consideration of race in its calculation. The National Kidney Foundation???s eGFR Task Force developed new recommendations for the estimation of the glomerular filtration rate in the [place] They recommend immediate implementation of the new equation refit without the race variable in all laboratories because the calculation does not include race. In addition to not including race in the calculation and reporting, it included diversity in its development, and has acceptable performance characteristics and potential consequences that do not disproportionately affect any one group of individuals. Performed By: #### L [id number] ####[facility] ([facility])[address] [facility] [address] Glucose [Mass/Vol] 154 mg/dL High 70-100 [facility] Comment on above: Performed By: #### L [id number] ####[facility] ([facility])[address] [place] [address] Potassium [Moles/Vol] 3.3 mmol/L Low 3.5-5.1 [facility] Comment on above: Performed By: #### L [id number] ####[facility] ([facility])[address] [place] [address] Sodium [Moles/Vol] 137 mmol/L Normal 136-145 [facility] Comment on above: Performed By: #### L [id number] ####[facility] ([facility])[address] [place] [address] Urea nitrogen [Mass/Vol] 19 mg/dL Normal 7-25 [facility] Comment on above: Performed By: #### L [id number] ####[facility] ([facility])[address] [facility] [address] UREA NITROGEN/CREATININE (MASS RATIO) IN SER/PLAS 15.7 Normal [facility] Comment on above: Performed By: #### L [id number] ####[facility] ([facility])[address] [place] [address] BK VIRUS, PLASMA, QUANTITATI VEon 02-24-2023 BK QUANTITATION Not detected Normal Not [facility]ed [facility] Comment on above: Result Comment: Meth od: BK virus was measured by quantitative polymerase chain reaction using a fluorescent hydrolysis probe targeting the polyomavirus BK REVERBERATORY SKIMMER-1 gene.The lower limit of quantitation of the assay is 500 copies of BK genome per milliliter of plasma or urine, and any detectable BK DNA below that level is reported as: Detected, <500 copies/ml. Serial BK virus measurement can be used to monitor disease activity. (Reference: Gordon chaneyl. J CLIN MICRO 2004; 42:0839-0683).This test was developed and its performance characteristics determined by the [facility]. It has not been approved by the US Food and Drug Administration. However, such approval is not required for clinical implementation, and test results have been shown to be clinically useful. This laboratory is CAP accredited and CLIA certified to perform high complexity testing. Performed By: #### L [id number] ####[facility] ([facility])[address] [place] [address] BK QUANTITATION LOG Not detected Normal Not Detected [facility] Comment on above: Performed By: #### L [id number] ####[facility] ([facility])[address] [place] [address] CBC WITH AUTO DIFFERENTIALon 02-24-2023 Basophils (Bld) [#/Vol] 0.05 10*3/uL Normal 0.00-0.20 [facility] Comment on above: Performed By: #### L [id number] ####[facility] ([facility])[address] [place] [address] Basophils/100 WBC (Bld) 0.7 % Normal 0.0-1.0 [facility] Comment on above: Performed By: #### L [id number] ####[facility] ([facility])[address] [place] [address] Eosinophils (Bld) [#/Vol] 0.17 10*3/uL Normal 0.00-0.50 [facility] Comment on above: Performed By: #### L [id number] ####[facility] (BEAKER)[address] [place], [place] [address], [place] [address] Eosinophils/100 WBC (Bld) 2.5 % Normal 0.0-6.0 [facility] Comment on above: Performed By: #### L [id number] ####[facility] (BEAKER)[address] [place] [address] Erythrocyte distribution width (RBC) [Ratio] 15.4 % High 11.5-15.0 [facility] Comment on above: Performed By: #### L [id number] ####[facility] (BEAKER)[address] [place] [address] ERYTHROCYTE MEAN CORPUSCULAR HEMOGLOBIN CONCENTRATION (G/DL) BY AUTOMATED 32.7 g/dL Normal 32.0-35.0 [facility] Comment on above: Performed By: #### L [id number] ####[facility] ([facility])[address] [place] [address] Hematocrit (Bld) [Volume fraction] 30.3 % Low 36.0-48.0 [facility] Comment on above: Performed By: #### L [id number] ####[facility] (BEAKER)[address] [place] [address] Hemoglobin (Bld) [Mass/Vol] 9.9 g/dL Low 12.0-15.0 [facility] Comment on above: Performed By: #### L [id number] ####[facility] (BEAKER)[address] [place] [address] Immature granulocytes (Bld) [#/Vol] 0.13 10*3/uL Normal 0.00-0.20 [facility] Comment on above: Performed By: #### L [id number] ####[facility] (BEAKER)[address] [place] [address] Immature granulocytes/100 WBC (Bld) 1.9 % High 0.0-1.0 [facility] Comment on above: Performed By: #### L [id number] ####[facility] (BE[facility]ER)[address] [place] [address] Lymphocytes (Bld) [#/Vol] 1.43 10*3/uL Normal 1.20-4.00 [facility] Comment on above: Performed By: #### L [id number] ####[facility] (BEAKER)[address] [place] [address] Lymphocytes/100 WBC (Bld) 21.0 % Normal 20.0-45.0 [facility] Comment on above: Performed By: #### L [id number] ####[facility] (BEAKER)[address] [place] [address] MCH (RBC) [Entitic mass] 30.7 pg Normal 27.0-33.0 [facility] Comment on above: Performed By: #### L [id number] ####[facility] (BEAKER)[address] [place] [address] MCV (RBC) [Entitic vol] 93.8 fL Normal 82.0-98.0 [facility] Comment on above: Performed By: #### L [id number] ####[facility] (BEAKER)[address] [place] [address] Monocytes (Bld) [#/Vol] 0.51 10*3/uL Normal 0.10-1.00 [facility] Comment on above: Performed By: #### L [id number] ####[facility] (BEAKER)[address] [place] [address] Monocytes/100 WBC (Bld) 7.5 % Normal 5.0-12.0 [facility] Comment on above: Performed By: #### L [id number] ####[facility] (BE[facility]ER)[address] [place] [address] Neutrophils (Bld) [#/Vol] 4.52 10*3/uL Normal 1.60-7.60 [facility] Comment on above: Performed By: #### L [id number] ####[facility] (BE[facility]ER)[address] [place] [address] Neutrophils/100 WBC (Bld) 66.4 % Normal 40.0-72.0 [facility] Comment on above: Performed By: #### L [id number] ####[facility] ([facility])[address] [place] [address] NRBC (PER 100 WBCS) BY AUTOMATED COUNT 0.3 % High 0 [facility] Comment on above: Performed By: #### L [id number] ####[facility] ([facility])[address] [place] [address] PLATELETS (10*3/UL) IN BLOOD AUTOMATED COUNT 218 10*3/uL Normal 150-400 [facility] Comment on above: Performed By: #### L [id number] ####[facility] ([facility])[address] [place] [address] RBC (Bld) [#/Vol] 3.23 10*6/uL Low 3.80-5.00 [facility] Comment on above: Performed By: #### L [id number] ####[facility] ([facility])[address] [place] [address] WBC (Bld) [#/Vol] 6.81 10*3/uL Normal 4.00-10.60 [facility] Comment on above: Performed By: #### L [id number] ####[facility] ([facility])[address] [place] [address] HEMOGLOBIN A1Con 02-24-2023 Glucose [Mass/Vol] 108 mg/dL Normal [facility] Comment on above: Performed By: #### L [id number] ####[facility] ([facility])[address] [place] [address] HbA1c (Bld) [Mass fraction] 5.4 % Normal 4.0-6.0 [facility] Comment on above: Performed By: #### L [id number] ####[facility] ([facility])[address] [place] [address] HEPATIC FUNCTION PANELon Albumin [Mass/Vol] 4.3 g/dL Normal 3.5-5.7 [facility] Comment on above: Performed By: #### L [id number] ####[facility] (BEAKER)[address] [place] [address] ALP [Catalytic activity/Vol] 79 U/L Normal 34-104 [facility] Comment on above: Performed By: #### L [id number] ####[facility] (BEAKER)[address] [place] [address] ALT [Catalytic activity/Vol] 21 U/L Normal 7-52 [facility] Comment on above: Performed By: #### L [id number] ####[facility] (BEAKER)[address] [place] [address] AST [Catalytic activity/Vol] 18 U/L Normal 13-39 [facility] Comment on above: Performed By: #### L [id number] ####[facility] ([facility])[address] [place] [address] Bilirubin [Mass/Vol] 0.5 mg/dL Normal 0.3-1.0 [facility] Comment on above: Performed By: #### L [id number] ####[facility] (BEAKER)[address] [place] [address] Magnesium [Mass/Vol] 0.1 mg/dL Normal 0-0.2 [facility] Comment on above: Performed By: #### L [id number] ####[facility] (BEAKER)[address] [place] [address] Protein [Mass/Vol] 6.8 g/dL Normal 6.0-8.3 [facility] Comment on above: Performed By: #### L [id number] ####[facility] (BEAKER)[address] [place] [address] LIPID PANELon 02-24-2023 CHOL/HDL 4.6 mg/dL Normal [facility] Comment on above: Performed By: #### L [id number] ####[facility] (BEAKER)[address] [place] [address] Cholesterol [Mass/Vol] 211 mg/dL High 120-200 [facility] Comment on above: Performed By: #### L [id number] ####[facility] ([facility])[address] [place] [address] Magnesium [Mass/Vol] 263 mg/dL High 40-149 [facility] Comment on above: Result Comment: TRIG LYCERIDE REFERENCE RANGE:20 YEARS AND OLDER CARDIOVASCULAR RISKLESS THAN 150 mg/dL LOW [id number] TO 199 mg/dL BORDERLINE [id number] mg/dL AND GREATER HIGH RISK Performed By: #### L [id number] ####[facility] ([facility])[address] [place] [address] Magnesium [Mass/Vol] 112 mg/dL Normal 0-160 [facility] Comment on above: Performed By: #### L [id number] ####[facility] ([facility])[address] [place] [address] Magnesium [Mass/Vol] 46 mg/dL Normal 23-92 [facility] Comment on above: Performed By: #### L [id number] ####[facility] ([facility])[address] [facility] [place] [place] [address] NON HDL CHOL. (LDL+VLDL) 165 Normal [facility] Comment on above: Performed By: #### L [id number] ####[facility] ([facility])[address] [place] [address] TOTAL VLDL-C 53 mg/dL High 0-40 [facility] Comment on above: Performed By: #### L [id number] ####[facility] ([facility])[address] [place] [address] Labon 02-24-2023 Lab Normal [facility] MAGNESIUMon 02-24-2023 Magnesium [Mass/Vol] 1.7 mg/dL Low 1.9-2.7 [facility] Comment on above: Performed By: #### L [id number] ####[facility] ([facility])[address] [facility] [place] [address] PANEL REACTIVE ANTIBODYon HOLD SPECIMEN Hold for add-ons. Normal [facility] Comment on above: Result Comment: Auto resulted. Performed By: #### L [id number] ####[facility] (BEAKER)[address] [place] [address] PHOSPHORUSon 02-24-2023 Magnesium [Mass/Vol] 2.3 mg/dL Low 2.5-5.0 [facility] Comment on above: Performed By: #### L [id number] ####[facility] (BEAKER)[address] [place] [address] SINGLE ANTIGEN CLASS Ion AB SCREEN COMMENTS No Class I donor spe cific antibody identified [facility] Comment on above: Performed By: #### L [id number] ####[facility] TISSUE TYPING (HISTOTRAC)[address] [place] [address] [place] CLASS I TESTED DATE [facility] Comment on above: Performed By: #### L [id number] ####[facility] TISSUE TYPING (HISTOTRAC)[address] [place], [place] [address] SINGLE ANTIGEN CLASS 1 TEST METHOD Class I Single Antigen [facility] Comment on above: Performed By: #### L [id number] ####[facility] TISSUE TYPING (HISTOTRAC)[address] [place] [address] [place] SINGLE ANTIGEN CLASS IIon AB SCREEN COMMENTS No Class II donor specific antibody identified [facility] Comment on above: Performed By: #### L [id number] ####[facility] TISSUE TYPING (HISTOTRAC)[address] [place] [address] [place] CLASS II TESTED DATE [facility] Comment on above: Performed By: #### L [id number] ####[facility] TISSUE TYPING (HISTOTRAC)[address] [place], [place] [address] SIGNED BY Signed by Sree escamilla CHT[facility] PARKER(ASCP), Refinery Operator [employer] Transplant Immunology [facility] Comment on above: Performed By: #### L [id number] ####[facility] TISSUE TYPING (HISTOTRAC)[address] [place] [address] [place] Result Comment: Clas s I Antigen Microbeads Performed By: #### L [id number] ####[facility] TISSUE TYPING (HISTOTRAC)[address] [place] [address] [facility] SINGLE ANTIGEN CLASS 2 TEST METHOD Class II Single Antigen Normal [facility] Comment on above: Result Comment: Clas s II Antigen Microbeads Performed By: #### L [id number] ####[facility] TISSUE TYPING (HISTOTRAC)[address] [place] [address] [facility] TACROLIMUS LEVELon Tacrolimus (Bld) [Mass/Vol] 5.9 ng/mL Normal 5.0-20.0 [facility] Comment on above: Result Comment: The [employer] Tacrolimus assay is a delayed one-step immunoassay for the quantitative determination of tacrolimus in human whole blood using the chemiluminescent microparticle immunoassay (CMIA) technology with flexible assay protocols, referred to as Chemiflex. Performed By: #### L [id number] ####[facility] (BEAKER)[address] [place] [address] URIC ACIDon 02-24-2023 Magnesium [Mass/Vol] 4.6 mg/dL Normal 2.3-6.6 [facility] Comment on above: Performed By: #### L [id number] ####[facility] (BEAKER)[address] [place] [address] Follow-Upon 02-03-2023 Follow-Up Normal [facility] BASIC METABOLIC PANELon 04-2 Anion gap [Moles/Vol] 13 mmol/L Normal 7-20 [facility] Comment on above: Performed By: #### L [id number] ####[facility] (BEAKER)[address] [place] [address] Calcium [Mass/Vol] 9.2 mg/dL Normal 8.6-10.3 [facility] Comment on above: Performed By: #### L [id number] ####[facility] (BEAKER)[address] [place] [address] Chloride [Moles/Vol] 104 mmol/L Normal 98-107 [facility] Comment on above: Performed By: #### L [id number] ####[facility])[address] [place] [address] CO2 [Moles/Vol] 24 mmol/L Normal 21-31 [facility] Comment on above: Performed By: #### L [id number] ####[facility] ([facility])[address] [place] [address] Creatinine [Mass/Vol] 1.39 mg/dL High 0.60-1.20 [facility] Comment on above: Performed By: #### L [id number] ####[facility] ([facility])[address] [place] [address] GLOMERULAR FILTRATION RATE ML/MIN/1.73 SQ M.PREDICTED 47.1 mL/min/1.73m*2 Low >60.0 [facility] Comment on above: Result Comment: The [facility]???s estimated glomerular filtration rate (eGFR) will no longer include consideration of race in its calculation. The National Kidney Foundation???s eGFR Task Force developed new recommendations for the estimation of the glomerular filtration rate in the [place] They recommend immediate implementation of the new equation refit without the race variable in all laboratories because the calculation does not include race. In addition to not including race in the calculation and reporting, it included diversity in its development, and has acceptable performance characteristics and potential consequences that do not disproportionately affect any one group of individuals. Performed By: #### L [id number] ####[facility])[address] [place] [address] Glucose [Mass/Vol] 174 mg/dL High 70-100 [facility] Comment on above: Performed By: #### L [id number] ####[facility])[address] [place] [address] Potassium [Moles/Vol] 3.8 mmol/L Normal 3.5-5.1 [facility] Comment on above: Performed By: #### L [id number] ####[facility] ([facility])[address] [place] [address] Sodium [Moles/Vol] 137 mmol/L Normal 136-145 [facility] Comment on above: Performed By: #### L [id number] ####[facility] ([facility] [place] [address] Urea nitrogen [Mass/Vol] 20 mg/dL Normal 7-25 [facility] Comment on above: Performed By: #### L [id number] ####[facility] ([facility])[address] [place] [address] UREA NITROGEN/CREATININE (MASS RATIO) IN SER/PLAS 14.4 Normal [facility] Comment on above: Performed By: #### L [id number] ####[facility] ([facility])[address] [place] [address] CBC WITH AUTO DIFFERENTIALon 02-01-2023 Basophils (Bld) [#/Vol] 0.07 10*3/uL Normal 0.00-0.20 [facility] Comment on above: Performed By: #### L [id number] ####[facility] ([facility])[address] [place] [address] Basophils/100 WBC (Bld) 0.8 % Normal 0.0-1.0 [facility] Comment on above: Performed By: #### L [id number] ####[facility] ([facility])[address] [place] [address] Eosinophils (Bld) [#/Vol] 0.36 10*3/uL Normal 0.00-0.50 [facility] Comment on above: Performed By: #### L [id number] ####[facility] ([facility])[address] [place] [address] Eosinophils/100 WBC (Bld) 4.2 % Normal 0.0-6.0 [facility] Comment on above: Performed By: #### L [id number] ####[facility] ([facility])[address] [place] [address] Erythrocyte distribution width (RBC) [Ratio] 14.7 % Normal 11.5-15.0 [facility] Comment on above: Performed By: #### L [id number] ####[facility] ([facility])[address] [place] [address] ERYTHROCYTE MEAN CORPUSCULAR HEMOGLOBIN CONCENTRATION (G/DL) BY AUTOMATED 33.0 g/dL Normal 32.0-35.0 [facility] Comment on above: Performed By: #### L [id number] ####[facility] ([facility])[address] [place] [address] Hematocrit (Bld) [Volume fraction] 30.9 % Low 36.0-48.0 [facility] Comment on above: Performed By: #### L [id number] ####[facility] ([facility])[address] [place] [address] Hemoglobin (Bld) [Mass/Vol] 10.2 g/dL Low 12.0-15.0 [facility] Comment on above: Performed By: #### L [id number] ####[facility] ([facility])[address] [place] [address] Immature granulocytes (Bld) [#/Vol] 0.14 10*3/uL Normal 0.00-0.20 [facility] Comment on above: Performed By: #### L [id number] ####[facility] ([facility])[address] [place] [address] Immature granulocytes/100 WBC (Bld) 1.6 % High 0.0-1.0 [facility] Comment on above: Performed By: #### L [id number] ####[facility] ([facility])[address] [place] [address] Lymphocytes (Bld) [#/Vol] 0.58 10*3/uL Low 1.20-4.00 [facility] Comment on above: Performed By: #### L [id number] ####[facility] ([facility])[address] [place] [address] Lymphocytes/100 WBC (Bld) 6.7 % Low 20.0-45.0 [facility] Comment on above: Performed By: #### L [id number] ####[facility] ([facility])[address] [place] [address] MCH (RBC) [Entitic mass] 31.1 pg Normal 27.0-33.0 [facility] Comment on above: Performed By: #### L [id number] ####[facility] ([facility])[address] [place] [address] MCV (RBC) [Entitic vol] 94.2 fL Normal 82.0-98.0 [facility] Comment on above: Performed By: #### L [id number] ####[facility])[address] [place] [address] Monocytes (Bld) [#/Vol] 0.59 10*3/uL Normal 0.10-1.00 [facility] Comment on above: Performed By: #### L [id number] ####[facility] ([facility])[address] [place] [address] Monocytes/100 WBC (Bld) 6.9 % Normal 5.0-12.0 [facility] Comment on above: Performed By: #### L [id number] ####[facility] ([facility])[address] [place] [address] Neutrophils (Bld) [#/Vol] 6.87 10*3/uL Normal 1.60-7.60 [facility] Comment on above: Performed By: #### L [id number] ####[facility] ([facility])[address] [place] [address] Neutrophils/100 WBC (Bld) 79.8 % High 40.0-72.0 [facility] Comment on above: Performed By: #### L [id number] ####[facility] ([facility])[address] [place] [address] NRBC (PER 100 WBCS) BY AUTOMATED COUNT 0.0 % Normal 0 [facility] Comment on above: Performed By: #### L [id number] ####[facility] ([facility])[address] [place] [address] PLATELETS (10*3/UL) IN BLOOD AUTOMATED COUNT 233 10*3/uL Normal 150-400 [facility] Comment on above: Performed By: #### L [id number] ####[facility])[address] [place] [address] RBC (Bld) [#/Vol] 3.28 10*6/uL Low 3.80-5.00 [facility] Comment on above: Performed By: #### L [id number] ####[facility])[address] [place] [address] WBC (Bld) [#/Vol] 8.61 10*3/uL Normal 4.00-10.60 [facility] Comment on above: Performed By: #### L [id number] ####[facility] ([facility])[address] [place] [address] CKon 02-01-2023 CREATINE KINASE (U/L) IN SER/PLAS 26.0 U/L Low 30.0-223.0 [facility] Comment on above: Performed By: #### L [id number] ####[facility] ([facility])[address] [place] [address] HEPATIC FUNCTION PANELon Albumin [Mass/Vol] 4.2 g/dL Normal 3.5-5.7 [facility] Comment on above: Performed By: #### L [id number] ####[facility])[address] [place] [address] ALP [Catalytic activity/Vol] 85 U/L Normal 34-104 [facility] Comment on above: Performed By: #### L [id number] ####[facility])[address] [place] [address] ALT [Catalytic activity/Vol] 26 U/L Normal 7-52 [facility] Comment on above: Performed By: #### L [id number] ####[facility] ([facility])[address] [place] [address] AST [Catalytic activity/Vol] 18 U/L Normal 13-39 [facility] Comment on above: Performed By: #### L [id number] ####[facility])[address] [place] [address] Bilirubin [Mass/Vol] 0.6 mg/dL Normal 0.3-1.0 [facility] Comment on above: Performed By: #### L [id number] ####[facility])[address] [place] [address] Magnesium [Mass/Vol] 0.1 mg/dL Normal 0-0.2 [facility] Comment on above: Performed By: #### L [id number] ####[facility])[address] [place] [address] Protein [Mass/Vol] 6.8 g/dL Normal 6.0-8.3 [facility] Comment on above: Performed By: #### L [id number] ####[facility])[address] [place] [address] LIPID PANELon 02-01-2023 CHOL/HDL 4.0 mg/dL Normal [facility] Comment on above: Performed By: #### L [id number] ####[facility])[address] [place] [address] Cholesterol [Mass/Vol] 194 mg/dL Normal 120-200 [facility] Comment on above: Performed By: #### L [id number] ####[facility])[address] [place] [address] Magnesium [Mass/Vol] 258 mg/dL High 40-149 [facility] Comment on above: Result Comment: TRIG LYCERIDE REFERENCE RANGE:20 YEARS AND OLDER CARDIOVASCULAR RISKLESS THAN 150 mg/dL LOW [id number] TO 199 mg/dL BORDERLINE [id number] mg/dL AND GREATER HIGH RISK Performed By: #### L [id number] ####[facility])[address] [place] [address] Magnesium [Mass/Vol] 93 mg/dL Normal 0-160 [facility] Comment on above: Performed By: #### L [id number] ####[facility])[address] [place] [address] Magnesium [Mass/Vol] 49 mg/dL Normal 23-92 [facility] Comment on above: Performed By: #### L [id number] ####[facility])[address] [place] [address] NON HDL CHOL. (LDL+VLDL) 145 Normal [facility] Comment on above: Performed By: #### L [id number] ####[facility])[address] [place] [address] TOTAL VLDL-C 52 mg/dL High 0-40 [facility] Comment on above: Performed By: #### L [id number] ####[facility])[address] [place] [address] Labon 02-01-2023 Lab Normal [facility] MAGNESIUMon 02-01-2023 Magnesium [Mass/Vol] 1.6 mg/dL Low 1.9-2.7 [facility] Comment on above: Performed By: #### L [id number] ####[facility])[address] [place] [address] MYOGLOBIN, SERUMon 3 MYOGLOBIN (NG/ML) IN SER/PLAS 30 ng/mL Normal 0-90 [facility] Comment on above: Result Comment: A DO UBLING OF VALUES FROM SERIAL BLOOD COLLECTIONS (1 - 2 HOURS APART) IS MORE INDICATIVE OF A M.I. THAN THE ABSOLUTE VALUE. Performed By: #### L [id number] ####[facility] ([facility])[address] [place] [address] PHOSPHORUSon 02-01-2023 Magnesium [Mass/Vol] 3.0 mg/dL Normal 2.5-5.0 [facility] Comment on above: Performed By: #### L [id number] ####[facility] ([facility])[address] [place] [address] TACROLIMUS LEVELon 3 Tacrolimus (Bld) [Mass/Vol] 7.0 ng/mL Normal 5.0-20.0 [facility] Comment on above: Result Comment: The [employer] Tacrolimus assay is a delayed one-step immunoassay for the quantitative determination of tacrolimus in human whole blood using the chemiluminescent microparticle immunoassay (CMIA) technology with flexible assay protocols, referred to as Chemiflex. Performed By: #### L [id number] ####[facility] ([facility])[address] [place] [address] URIC ACIDon 02-01-2023 Magnesium [Mass/Vol] 3.9 mg/dL Normal 2.3-6.6 [facility] Comment on above: Performed By: #### L [id number] ####[facility])[address] [place] [address] Labon 01-17-2023 Lab Normal [facility] TACROLIMUS LEVELon 3 Tacrolimus (Bld) [Mass/Vol] 7.8 ng/mL Normal 5.0-20.0 [facility] Comment on above: Result Comment: The [employer] Tacrolimus assay is a delayed one-step immunoassay for the quantitative determination of tacrolimus in human whole blood using the chemiluminescent microparticle immunoassay (CMIA) technology with flexible assay protocols, referred to as Chemiflex. Performed By: #### L [id number] ####[facility] ([facility])[address] [place] [address] Labon 01-09-2023 Lab Normal [facility] TACROLIMUS LEVELon 3 Tacrolimus (Bld) [Mass/Vol] 4.4 ng/mL Low 5.0-20.0 [facility] Comment on above: Result Comment: The [employer] Tacrolimus assay is a delayed one-step immunoassay for the quantitative determination of tacrolimus in human whole blood using the chemiluminescent microparticle immunoassay (CMIA) technology with flexible assay protocols, referred to as Chemiflex. Performed By: #### L [id number] ####[facility] ([facility])[address] [place] [address] Labon 01-01-2023 Lab Normal [facility] TACROLIMUS LEVELon Tacrolimus (Bld) [Mass/Vol] 10.0 ng/mL Normal 5.0-20.0 [facility] Comment on above: Result Comment: The [employer] Tacrolimus assay is a delayed one-step immunoassay for the quantitative determination of tacrolimus in human whole blood using the chemiluminescent microparticle immunoassay (CMIA) technology with flexible assay protocols, referred to as Chemiflex. Performed By: #### L [id number] ####[facility] ([facility])[address] [place], [place] [address] BASIC METABOLIC PANELon 12-05 Anion gap [Moles/Vol] 13 mmol/L Normal 7-20 [facility] Comment on above: Performed By: #### L [id number] ####[facility])[address] [place] [address] Calcium [Mass/Vol] 9.4 mg/dL Normal 8.6-10.3 [facility] Comment on above: Performed By: #### L [id number] ####[facility] ([facility])[address] [place], [place] [address] Chloride [Moles/Vol] 103 mmol/L Normal 98-107 [facility] Comment on above: Performed By: #### L [id number] ####[facility])[address] [place] [address] CO2 [Moles/Vol] 25 mmol/L Normal 21-31 [facility] Comment on above: Performed By: #### L [id number] ####[facility] ([facility])[address] [place] [address] Creatinine [Mass/Vol] 1.33 mg/dL High 0.60-1.20 [facility] Comment on above: Performed By: #### L [id number] ####[facility] ([facility])[address] [place] [address] GLOMERULAR FILTRATION RATE ML/MIN/1.73 SQ M.PREDICTED 49.7 mL/min/1.73m*2 Low >60.0 [facility] Comment on above: Result Comment: The [facility]???s estimated glomerular filtration rate (eGFR) will no longer include consideration of race in its calculation. The [employer]???s eGFR Task Force developed new recommendations for the estimation of the glomerular filtration rate in the [place] They recommend immediate implementation of the new equation refit without the race variable in all laboratories because the calculation does not include race. In addition to not including race in the calculation and reporting, it included diversity in its development, and has acceptable performance characteristics and potential consequences that do not disproportionately affect any one group of individuals. Performed By: #### L [id number] ####[facility] [place] [address] Glucose [Mass/Vol] 154 mg/dL High 70-100 [facility] Comment on above: Performed By: #### L [id number] ####[facility] [place] [address] Potassium [Moles/Vol] 3.5 mmol/L Normal 3.5-5.1 [facility] Comment on above: Performed By: #### L [id number] ####[facility] [place] [address] Sodium [Moles/Vol] 137 mmol/L Normal 136-145 [facility] Comment on above: Performed By: #### L [id number] ####[facility] [place] [address] Urea nitrogen [Mass/Vol] 23 mg/dL Normal 7-25 [facility] Comment on above: Performed By: #### L [id number] ####[facility])[address] [place] [address] UREA NITROGEN/CREATININE (MASS RATIO) IN SER/PLAS 17.3 Normal [facility] Comment on above: Performed By: #### L [id number] ####[facility])[address] [place] [address] CBC WITH AUTO DIFFERENTIALon 12-25-2022 Erythrocyte distribution width (RBC) [Ratio] 13.3 % Normal 11.5-15.0 [facility] Comment on above: Performed By: #### L [id number] ####[facility] ([facility] [place] [address] ERYTHROCYTE MEAN CORPUSCULAR HEMOGLOBIN CONCENTRATION (G/DL) BY AUTOMATED 33.8 g/dL Normal 32.0-35.0 [facility] Comment on above: Performed By: #### L [id number] ####[facility])[address] [place] [address] Hematocrit (Bld) [Volume fraction] 36.4 % Normal 36.0-48.0 [facility] Comment on above: Performed By: #### L [id number] ####[facility])[address] [place] [address] Hemoglobin (Bld) [Mass/Vol] 12.3 g/dL Normal 12.0-15.0 [facility] Comment on above: Performed By: #### L [id number] ####[facility] [place] [address] MCH (RBC) [Entitic mass] 31.9 pg Normal 27.0-33.0 [facility] Comment on above: Performed By: #### L [id number] ####[facility] [place] [address] MCV (RBC) [Entitic vol] 94.5 fL Normal 82.0-98.0 [facility] Comment on above: Performed By: #### L [id number] ####[facility] [place] [address] NRBC (PER 100 WBCS) BY AUTOMATED COUNT 0.0 % Normal 0.0-0.0 [facility] Comment on above: Performed By: #### L [id number] ####[facility])[address] [place] [address] PLATELETS (10*3/UL) IN BLOOD AUTOMATED COUNT 274 10*3/uL Normal 150-400 [facility] Comment on above: Performed By: #### L [id number] ####[facility])[address] [place] [address] RBC (Bld) [#/Vol] 3.85 10*6/uL Normal 3.80-5.00 [facility] Comment on above: Performed By: #### L [id number] ####[facility])[address] [place] [address] WBC (Bld) [#/Vol] 4.30 10*3/uL Normal 4.00-10.60 [facility] Comment on above: Performed By: #### L [id number] ####[facility])[address] [place] [address] CKon 12-25-2022 CREATINE KINASE (U/L) IN SER/PLAS 32.0 U/L Normal 30.0-223.0 [facility] Comment on above: Performed By: #### L [id number] ####[facility])[address] [place] [address] Follow-Upon 12-25-2022 Follow-Up Normal [facility] HEPATIC FUNCTION PANELon Albumin [Mass/Vol] 4.6 g/dL Normal 3.5-5.7 [facility] Comment on above: Performed By: #### L [id number] ####[facility])[address] [place] [address] ALP [Catalytic activity/Vol] 63 U/L Normal 34-104 [facility] Comment on above: Performed By: #### L [id number] ####[facility])[address] [place] [address] ALT [Catalytic activity/Vol] 25 U/L Normal 7-52 [facility] Comment on above: Performed By: #### L [id number] ####[facility] [place] [address] AST [Catalytic activity/Vol] 19 U/L Normal 13-39 [facility] Comment on above: Performed By: #### L [id number] ####[facility] [place] [address] Bilirubin [Mass/Vol] 0.4 mg/dL Normal 0.3-1.0 [facility] Comment on above: Performed By: #### L [id number] ####[facility] [place] [address] Magnesium [Mass/Vol] 0.1 mg/dL Normal 0-0.2 [facility] Comment on above: Performed By: #### L [id number] ####[facility] [place] [address] Protein [Mass/Vol] 7.2 g/dL Normal 6.0-8.3 [facility] Comment on above: Performed By: #### L [id number] ####[facility] [place] [address] Labon 12-25-2022 Lab Normal [facility] MAGNESIUMon 12-25-2022 Magnesium [Mass/Vol] 1.7 mg/dL Low 1.9-2.7 [facility] Comment on above: Performed By: #### L [id number] ####[facility])[address] [place] [address] MANUAL DIFFERENTIALon 2022 BASOPHILS (10*3/UL) IN BLOOD BY CALCULATION 0.04 10*3/uL Normal 0.00-0.20 [facility] Comment on above: Performed By: #### L [id number] ####[facility])[address] [place] [address] BASOPHILS/100 LEUKOCYTES IN BLOOD BY AUTOMATED COUNT 1.0 % Normal 0.0-1.0 [facility] Comment on above: Result Comment: Libby ected result: Previously reported as 0.9 % (reference range: 0.0-1.0 %) on 12/25/2022 at 0831 EDT. Performed By: #### L [id number] ####[facility] ([employer])[address] [place] [address] EOSINOPHILS (10*3/UL) IN BLOOD BY CALCULATION 0.09 10*3/uL Normal 0.00-0.50 [facility] Comment on above: Result Comment: Libby ected result: Previously reported as 0.15 10*3/uL (reference range: 0.00-0.50 10*3/uL) on 12/25/2022 at 0831 EDT. Performed By: #### L [id number] ####[facility] ([facility] [place] [address] EOSINOPHILS/100 LEUKOCYTES IN BLOOD BY AUTOMATED COUNT 2.0 % Normal 0.0-6.0 [facility] Comment on above: Result Comment: Libby ected result: Previously reported as 3.5 % (reference range: 0.0-6.0 %) on 12/25/2022 at 0831 EDT. Performed By: #### L [id number] ####[facility] ([employer])[address] [place] [address] LYMPHOCYTES (10*3/UL) IN BLOOD BY CALCULATION 0.65 10*3/uL Low 1.20-4.00 [facility] Comment on above: Result Comment: Libby ected result: Previously reported as 0.69 10*3/uL (reference range: 1.20-4.00 10*3/uL) on 12/25/2022 at 0831 EDT. Performed By: #### L [id number] ####[facility] ([employer])[address] [place] [address] LYMPHOCYTES/100 LEUKOCYTES IN BLOOD BY AUTOMATED COUNT 15.0 % Low 20.0-45.0 [facility] Comment on above: Result Comment: Libby ected result: Previously reported as 16.0 % (reference range: 20.0-45.0 %) on 12/25/2022 at 0831 EDT. Performed By: #### L [id number] ####[facility] ([facility])[address] [place] [address] METAMYELOCYTES (10*3/UL) IN BLOOD BY CALCULATION 0.04 10*3/uL High 0.00-0.00 [facility] Comment on above: Performed By: #### L [id number] ####[facility])[address] [place] [address] METAMYELOCYTES/100 LEUKOCYTES IN BLOOD CELLAVISION 1.0 % High 0.0-0.0 [facility] Comment on above: Performed By: #### L [id number] ####[facility])[address] [place] [address] MONOCYTES (10*3/UL) IN BLOOD BY CALCUATION 0.04 10*3/uL Low 0.10-1.00 [facility] Comment on above: Result Comment: Libby ected result: Previously reported as 0.12 10*3/uL (reference range: 0.10-1.00 10*3/uL) on 12/25/2022 at 0831 EDT. Performed By: #### L [id number] ####[facility])[address] [place] [address] MONOCYTES/100 LEUKOCYTES IN BLOOD BY AUTOMATED COUNT 1.0 % Low 5.0-12.0 [facility] Comment on above: Result Comment: Libby ected result: Previously reported as 2.8 % (reference range: 5.0-12.0 %) on 12/25/2022 at 0831 EDT. Performed By: #### L [id number] ####[facility])[address] [place] [address] NEUTROPHILS (10*3/UL) IN BLOOD BY CALCULATION 3.4 10*3/uL Normal 1.6-7.6 [facility] Comment on above: Result Comment: Libby ected result: Previously reported as 2.9 10*3/uL (reference range: 1.6-7.6 10*3/uL) on 12/25/2022 at 0831 EDT. Performed By: #### L [id number] ####[facility] [place] [address] NEUTROPHILS/100 LEUKOCYTES IN BLOOD BY AUTOMATED COUNT 80.0 % High 40.0-72.0 [facility] Comment on above: Result Comment: Libby ected result: Previously reported as 67.7 % (reference range: 40.0-72.0 %) on 12/25/2022 at 0831 EDT. Performed By: #### L [id number] ####[facility] [place] [address] PLASMA CELLS/100 LEUKOCYTES IN BLOOD 0 % Normal 0-0 [facility] Comment on above: Performed By: #### L [id number] ####[facility] [place] [address] PLATELETS GIANT PRESENCE IN BLOOD BY LIGHT MICROSCOPY Present Normal [facility] Comment on above: Performed By: #### L [id number] ####[facility] [place] [address] VARIANT LYMPHOCYTES (10*3/UL) IN BLOOD BY CALCULATION 0.00 10*3/uL Normal 0.00-0.00 [facility] Comment on above: Performed By: #### L [id number] ####[facility])[address] [place] [address] VARIANT LYMPHOCYTES/100 LEUKOCYTES IN BLOOD CELLAVISION 0.0 % Normal 0.0-0.0 [facility] Comment on above: Performed By: #### L [id number] ####[facility])[address] [place] [address] [facility] 12[facility]25-2022 PROSPERA RESULT Results to be mailed directly to physician's office by reference lab. [facility] Comment on above: Performed By: #### L [id number] ####[facility], PHOSPHORUSon 12-25-2022 Magnesium [Mass/Vol] 2.6 mg/dL Normal 2.5-5.0 [facility] Comment on above: Performed By: #### L [id number] ####[facility])[address] [place] [address] [place] [address] SINGLE ANTIGEN CLASS Ion AB SCREEN COMMENTS No Class I donor spe cific antibody identified Normal [facility] Comment on above: Performed By: #### L [id number] ####[facility] TISSUE TYPING (HISTOTRAC)[address] [place] [address] [place] CLASS I TESTED DATE Normal [facility] Comment on above: Performed By: #### L [id number] ####[facility] TISSUE TYPING (HISTOTRAC)[address] [facility] [place] [address] [place] SIGNED BY Signed by Sree escamilla CHT([facility]) MT([facility] Refinery Operator Polymerization Plant Transplant Immunology [facility] Comment on above: Result Comment: Clas s I Antigen Microbeads Performed By: #### L [id number] ####[facility] TISSUE TYPING (HISTOTRAC)[address] [facility] [place] [place] [address] [place] Performed By: #### L [id number] ####[facility] TISSUE TYPING (HISTOTRAC)[address] [facility] [place] [place] [address] [place] SINGLE ANTIGEN CLASS 1 TEST METHOD Class I Single Antigen Normal [facility] Comment on above: Performed By: #### L [id number] ####[facility] TISSUE TYPING (HISTOTRAC)[address] [facility] [place] [place] [address] [place] SINGLE ANTIGEN CLASS IIon AB SCREEN COMMENTS No Class II donor specific antibody identified Normal [facility] Comment on above: Performed By: #### L [id number] ####[facility] TISSUE TYPING (HISTOTRAC)[address] [facility] [address] [place] CLASS II TESTED DATE [facility] Comment on above: Performed By: #### L [id number] ####[facility] TISSUE TYPING (HISTOTRAC)[address] [place] [address] [place] SINGLE ANTIGEN CLASS 2 TEST METHOD Class II Single Antigen Normal [facility] Comment on above: Result Comment: Clas s II Antigen Microbeads Performed By: #### L [id number] ####[facility] TISSUE TYPING (HISTOTRAC)[address] [place] [address] [place] TACROLIMUS LEVELon Tacrolimus (Bld) [Mass/Vol] 11.4 ng/mL Normal 5.0-20.0 [facility] Comment on above: Result Comment: The [employer] Tacrolimus assay is a delayed one-step immunoassay for the quantitative determination of tacrolimus in human whole blood using the chemiluminescent microparticle immunoassay (CMIA) technology with flexible assay protocols, referred to as Chemiflex. Performed By: #### L [id number] ####[facility] [place] [address] URIC ACIDon 12-25-2022 Magnesium [Mass/Vol] 2.9 mg/dL Normal 2.3-6.6 [facility] Comment on above: Performed By: #### L [id number] ####[facility] [place] [address] BASIC METABOLIC PANELon Anion gap [Moles/Vol] 14 mmol/L Normal 7-20 [facility] Comment on above: Performed By: #### L [id number] ####[facility] ([facility])[address] [place] [address] Calcium [Mass/Vol] 9.2 mg/dL Normal 8.6-10.3 [facility] Comment on above: Performed By: #### L [id number] ####[facility] ([facility])[address] [place] [address] Chloride [Moles/Vol] 103 mmol/L Normal 98-107 [facility] Comment on above: Performed By: #### L [id number] ####[facility] ([facility])[address] [place] [address] CO2 [Moles/Vol] 23 mmol/L Normal 21-31 [facility] Comment on above: Performed By: #### L [id number] ####[facility] ([facility])[address] [place] [address] Creatinine [Mass/Vol] 1.49 mg/dL High 0.60-1.20 [facility] Comment on above: Performed By: #### L [id number] ####[facility])[address] [place] [address] GLOMERULAR FILTRATION RATE ML/MIN/1.73 SQ M.PREDICTED 43.3 mL/min/1.73m*2 Low >60.0 [facility] Comment on above: Result Comment: The [facility]???s estimated glomerular filtration rate (eGFR) will no longer include consideration of race in its calculation. The National Kidney Foundation???s eGFR Task Force developed new recommendations for the estimation of the glomerular filtration rate in the [place] They recommend immediate implementation of the new equation refit without the race variable in all laboratories because the calculation does not include race. In addition to not including race in the calculation and reporting, it included diversity in its development, and has acceptable performance characteristics and potential consequences that do not disproportionately affect any one group of individuals. Performed By: #### L [id number] ####[facility] ([facility])[address] [place] [address] Glucose [Mass/Vol] 145 mg/dL High 70-100 [facility] Comment on above: Performed By: #### L [id number] ####[facility])[address] [place] [address] Potassium [Moles/Vol] 3.6 mmol/L Normal 3.5-5.1 [facility] Comment on above: Performed By: #### L [id number] ####[facility])[address] [place] [address] Sodium [Moles/Vol] 136 mmol/L Normal 136-145 [facility] Comment on above: Performed By: #### L [id number] ####[facility])[address] [place] [address] Urea nitrogen [Mass/Vol] 25 mg/dL Normal 7-25 [facility] Comment on above: Performed By: #### L [id number] ####[facility])[address] [place] [address] UREA NITROGEN/CREATININE (MASS RATIO) IN SER/PLAS 16.8 Normal [facility] Comment on above: Performed By: #### L [id number] ####[facility] ([facility])[address] [place] [address] CBC WITH AUTO DIFFERENTIALon 12-06-2022 Erythrocyte distribution width (RBC) [Ratio] 14.5 % Normal 11.5-15.0 [facility] Comment on above: Performed By: #### L [id number] ####[facility] ([facility])[address] [place] [address] ERYTHROCYTE MEAN CORPUSCULAR HEMOGLOBIN CONCENTRATION (G/DL) BY AUTOMATED 33.0 g/dL Normal 32.0-35.0 [facility] Comment on above: Performed By: #### L [id number] ####[facility])[address] [place] [address] Hematocrit (Bld) [Volume fraction] 34.2 % Low 36.0-48.0 [facility] Comment on above: Performed By: #### L [id number] ####[facility])[address] [place] [address] Hemoglobin (Bld) [Mass/Vol] 11.3 g/dL Low 12.0-15.0 [facility] Comment on above: Performed By: #### L [id number] ####[facility] ([facility])[address] [place] [address] MCH (RBC) [Entitic mass] 31.8 pg Normal 27.0-33.0 [facility] Comment on above: Performed By: #### L [id number] ####[facility])[address] [place] [address] MCV (RBC) [Entitic vol] 96.3 fL Normal 82.0-98.0 [facility] Comment on above: Performed By: #### L [id number] ####[facility] ([facility])[address] [place] [address] NRBC (PER 100 WBCS) BY AUTOMATED COUNT 0.0 % Normal 0.0-0.0 [facility] Comment on above: Performed By: #### L [id number] ####[facility] ([facility])[address] [place] [address] PLATELETS (10*3/UL) IN BLOOD AUTOMATED COUNT 305 10*3/uL Normal 150-400 [facility] Comment on above: Performed By: #### L [id number] ####[facility])[address] [place] [address] RBC (Bld) [#/Vol] 3.55 10*6/uL Low 3.80-5.00 [facility] Comment on above: Performed By: #### L [id number] ####[facility])[address] [place] [address] WBC (Bld) [#/Vol] 8.05 10*3/uL Normal 4.00-10.60 [facility] Comment on above: Performed By: #### L [id number] ####[facility])[address] [place] [address] HEPATIC FUNCTION PANELon Albumin [Mass/Vol] 4.4 g/dL Normal 3.5-5.7 [facility] Comment on above: Performed By: #### L [id number] ####[facility])[address] [place] [address] ALP [Catalytic activity/Vol] 64 U/L Normal 34-104 [facility] Comment on above: Performed By: #### L [id number] ####[facility])[address] [place] [address] ALT [Catalytic activity/Vol] 17 U/L Normal 7-52 [facility] Comment on above: Performed By: #### L [id number] ####[facility])[address] [place] [address] AST [Catalytic activity/Vol] 16 U/L Normal 13-39 [facility] Comment on above: Performed By: #### L [id number] ####[facility])[address] [place] [address] Bilirubin [Mass/Vol] 0.5 mg/dL Normal 0.3-1.0 [facility] Comment on above: Performed By: #### L [id number] ####[facility])[address] [place] [address] Magnesium [Mass/Vol] 0.1 mg/dL Normal 0-0.2 [facility] Comment on above: Performed By: #### L [id number] ####[facility] ([facility])[address] [place] [address] Protein [Mass/Vol] 6.8 g/dL Normal 6.0-8.3 [facility] Comment on above: Performed By: #### L [id number] ####[facility] ([facility])[address] [place] [address] Labon 12-06-2022 Lab Normal [facility] MAGNESIUMon 12-06-2022 Magnesium [Mass/Vol] 1.7 mg/dL Low 1.9-2.7 [facility] Comment on above: Performed By: #### L [id number] ####[facility] ([facility])[address] [place] [address] MANUAL DIFFERENTIALon 2022 BASOPHILS (10*3/UL) IN BLOOD BY CALCULATION 0.16 10*3/uL Normal [facility] Comment on above: Performed By: #### L [id number] ####[facility])[address] [place] [address] BASOPHILS/100 LEUKOCYTES IN BLOOD BY AUTOMATED COUNT 2.0 % High 0.0-1.0 [facility] Comment on above: Performed By: #### L [id number] ####[facility])[address] [place] [address] EOSINOPHILS (10*3/UL) IN BLOOD BY CALCULATION 0.24 10*3/uL Normal [facility] Comment on above: Performed By: #### L [id number] ####[facility])[address] [place] [address] EOSINOPHILS/100 LEUKOCYTES IN BLOOD BY AUTOMATED COUNT 3.0 % Normal 0.0-6.0 [facility] Comment on above: Performed By: #### L [id number] ####[facility])[address] [place] [address] LYMPHOCYTES (10*3/UL) IN BLOOD BY CALCULATION 0.96 10*3/uL Low 1.20-4.00 [facility] Comment on above: Performed By: #### L [id number] ####[facility])[address] [place] [address] LYMPHOCYTES/100 LEUKOCYTES IN BLOOD BY AUTOMATED COUNT 11.9 % Low 20.0-45.0 [facility] Comment on above: Performed By: #### L [id number] ####[facility])[address] [place] [address] METAMYELOCYTES (10*3/UL) IN BLOOD BY CALCULATION 0.56 10*3/uL Normal [facility] Comment on above: Performed By: #### L [id number] ####[facility])[address] [place] [address] METAMYELOCYTES/100 LEUKOCYTES IN BLOOD CELLAVISION 6.9 % Normal [facility] Comment on above: Performed By: #### L [id number] ####[facility])[address] [place] [address] MONOCYTES (10*3/UL) IN BLOOD BY CALCUATION 0.72 10*3/uL Normal [facility] Comment on above: Performed By: #### L [id number] ####[facility] ([facility])[address] [place] [address] MONOCYTES/100 LEUKOCYTES IN BLOOD BY AUTOMATED COUNT 8.9 % Normal 5.0-12.0 [facility] Comment on above: Performed By: #### L [id number] ####[facility])[address] [place] [address] MYELOCYTES (10*3/UL) IN BLOOD BY CALCULATION 0.16 10*3/uL Normal [facility] Comment on above: Performed By: #### L [id number] ####[facility])[address] [place] [address] MYELOCYTES/100 LEUKOCYTES IN BLOOD CELLAVISION 2.0 % Normal 0.0-3.0 [facility] Comment on above: Performed By: #### L [id number] ####[facility])[address] [place] [address] NEUTROPHILS (10*3/UL) IN BLOOD BY CALCULATION 5.3 10*3/uL Normal 1.6-7.6 [facility] Comment on above: Performed By: #### L [id number] ####[facility])[address] [place] [address] NEUTROPHILS/100 LEUKOCYTES IN BLOOD BY AUTOMATED COUNT 65.3 % Normal 40.0-72.0 [facility] Comment on above: Performed By: #### L [id number] ####[facility])[address] [place] [address] PLASMA CELLS/100 LEUKOCYTES IN BLOOD 0 % Normal [facility] Comment on above: Performed By: #### L [id number] ####[facility])[address] [place] [address] VARIANT LYMPHOCYTES (10*3/UL) IN BLOOD BY CALCULATION 0.00 10*3/uL Normal [facility] Comment on above: Performed By: #### L [id number] ####[facility])[address] [place] [address] VARIANT LYMPHOCYTES/100 LEUKOCYTES IN BLOOD CELLAVISION 0.0 % Normal [facility] Comment on above: Performed By: #### L [id number] ####[facility])[address] [place] [address] PANEL REACTIVE ANTIBODYon HOLD SPECIMEN Hold for add-ons. Normal [facility] Comment on above: Result Comment: Auto resulted. Performed By: #### L [id number] ####[facility] ([facility])[address] [place] [address] HOLD SPECIMEN Hold for add-ons. Normal [facility] Comment on above: Result Comment: Auto resulted. PHOSPHORUSon 12-06-2022 Magnesium [Mass/Vol] 3.1 mg/dL Normal 2.5-5.0 [facility] Comment on above: Performed By: #### L [id number] ####[facility] ([facility])[address] [place] [address] SINGLE ANTIGEN CLASS Ion AB SCREEN COMMENTS No Class I donor spe cific antibody identified Normal [facility] Comment on above: Performed By: #### L [id number] ####[facility] TISSUE TYPING (HISTOTRAC)[address] [place] [address] [place] CLASS I TESTED DATE Normal [facility] Comment on above: Performed By: #### L [id number] ####[facility] TISSUE TYPING (HISTOTRAC)[address] [place] [address] SINGLE ANTIGEN CLASS 1 TEST METHOD Class I Single Antigen Normal [facility] Comment on above: Performed By: #### L [id number] ####[facility] TISSUE TYPING (HISTOTRAC)[address] [place], [place] [address] SINGLE ANTIGEN CLASS IIon AB SCREEN COMMENTS No Class II donor specific antibody identified [facility] Comment on above: Performed By: #### L [id number] ####[facility] TISSUE TYPING (HISTOTRAC)[address] [place] [address] [place] CLASS II TESTED DATE [facility] Comment on above: Performed By: #### L [id number] ####[facility] TISSUE TYPING (HISTOTRAC)[address] SIGNED BY Signed by Sree escamilla CHT([facility]) PARKER(ASCP), Refinery Operator Polymerization Plant Transplant Immunology Normal [facility] Comment on above: Performed By: #### L [id number] ####[facility] TISSUE TYPING (HISTOTRAC)[address] [place], [place] [address] Result Comment: Clas s I Antigen Microbeads Performed By: #### L [id number] ####[facility] TISSUE TYPING (HISTOTRAC)[address] SINGLE ANTIGEN CLASS 2 TEST METHOD Class II Single Antigen Normal [facility] Comment on above: Result Comment: Clas s II Antigen Microbeads Performed By: #### L [id number] ####[facility] TISSUE TYPING (HISTOTRAC)[address] TACROLIMUS LEVELon Tacrolimus (Bld) [Mass/Vol] 6.7 ng/mL Normal 5.0-20.0 [facility] Comment on above: Result Comment: The [employer] Tacrolimus assay is a delayed one-step immunoassay for the quantitative determination of tacrolimus in human whole blood using the chemiluminescent microparticle immunoassay (CMIA) technology with flexible assay protocols, referred to as Chemiflex. Performed By: #### L [id number] ####[facility] ([facility])[address] [place] [address] URIC ACIDon 12-06-2022 Magnesium [Mass/Vol] 4.2 mg/dL Normal 2.3-6.6 [facility] Comment on above: Performed By: #### L [id number] ####[facility] ([facility])[address] [place] [address] BASIC METABOLIC PANELon 11-07 Anion gap [Moles/Vol] 15 mmol/L Normal 7-20 [facility] Comment on above: Performed By: #### L [id number] ####[facility] ([facility])[address] [place] [address] Calcium [Mass/Vol] 9.0 mg/dL Normal 8.6-10.3 [facility] Comment on above: Performed By: #### L [id number] ####[facility] ([facility])[address] [place] [address] Chloride [Moles/Vol] 105 mmol/L Normal 98-107 [facility] Comment on above: Performed By: #### L [id number] ####[facility] [place] [address] CO2 [Moles/Vol] 21 mmol/L Normal 21-31 [facility] Comment on above: Performed By: #### L [id number] ####[facility] [place] [address] Creatinine [Mass/Vol] 1.77 mg/dL High 0.60-1.20 [facility] Comment on above: Performed By: #### L [id number] ####[facility])[address] [place] [address] GLOMERULAR FILTRATION RATE ML/MIN/1.73 SQ M.PREDICTED 33.7 mL/min/1.73m*2 Low >60.0 [facility] Comment on above: Result Comment: The [facility]???s estimated glomerular filtration rate (eGFR) will no longer include consideration of race in its calculation. The National Kidney Foundation???s eGFR Task Force developed new recommendations for the estimation of the glomerular filtration rate in the [place] They recommend immediate implementation of the new equation refit without the race variable in all laboratories because the calculation does not include race. In addition to not including race in the calculation and reporting, it included diversity in its development, and has acceptable performance characteristics and potential consequences that do not disproportionately affect any one group of individuals. Performed By: #### L [id number] ####[facility])[address] [place] [address] Glucose [Mass/Vol] 126 mg/dL High 70-100 [facility] Comment on above: Performed By: #### L [id number] ####[facility])[address] [place] [address] Potassium [Moles/Vol] 4.0 mmol/L Normal 3.5-5.1 [facility] Comment on above: Performed By: #### L [id number] ####[facility])[address] [place] [address] Sodium [Moles/Vol] 137 mmol/L Normal 136-145 [facility] Comment on above: Performed By: #### L [id number] ####[facility])[address] [place] [address] Urea nitrogen [Mass/Vol] 29 mg/dL High 7-25 [facility] Comment on above: Performed By: #### L [id number] ####[facility])[address] [place] [address] UREA NITROGEN/CREATININE (MASS RATIO) IN SER/PLAS 16.38 Normal [facility] Comment on above: Performed By: #### L [id number] ####[facility])[address] [place] [address] CBC WITH AUTO DIFFERENTIALon 11-29-2022 Erythrocyte distribution width (RBC) [Ratio] 14.6 % Normal 11.5-15.0 [facility] Comment on above: Performed By: #### L [id number] ####[facility])[address] [place], [place] [address] ERYTHROCYTE MEAN CORPUSCULAR HEMOGLOBIN CONCENTRATION (G/DL) BY AUTOMATED 33.1 g/dL Normal 32.0-35.0 [facility] Comment on above: Performed By: #### L [id number] ####[facility])[address] [place] [address] Hematocrit (Bld) [Volume fraction] 34.4 % Low 36.0-48.0 [facility] Comment on above: Performed By: #### L [id number] ####[facility] ([facility])[address] [place] [address] Hemoglobin (Bld) [Mass/Vol] 11.4 g/dL Low 12.0-15.0 [facility] Comment on above: Performed By: #### L [id number] ####[facility] ([facility])[address] [place] [address] MCH (RBC) [Entitic mass] 32.1 pg Normal 27.0-33.0 [facility] Comment on above: Performed By: #### L [id number] ####[facility] [place] [address] MCV (RBC) [Entitic vol] 96.9 fL Normal 82.0-98.0 [facility] Comment on above: Performed By: #### L [id number] ####[facility] [place] [address] NRBC (PER 100 WBCS) BY AUTOMATED COUNT 0.0 % Normal 0.0-0.0 [facility] Comment on above: Performed By: #### L [id number] ####[facility])[address] [place] [address] PLATELETS (10*3/UL) IN BLOOD AUTOMATED COUNT 276 10*3/uL Normal 150-400 [facility] Comment on above: Performed By: #### L [id number] ####[facility])[address] [place] [address] RBC (Bld) [#/Vol] 3.55 10*6/uL Low 3.80-5.00 [facility] Comment on above: Performed By: #### L [id number] ####[facility] [place] [address] WBC (Bld) [#/Vol] 9.71 10*3/uL Normal 4.00-10.60 [facility] Comment on above: Performed By: #### L [id number] ####[facility] [place] [address] Follow-Upon 11-29-2022 Follow-Up Normal [facility] HEPATIC FUNCTION PANELon Albumin [Mass/Vol] 4.5 g/dL Normal 3.5-5.7 [facility] Comment on above: Performed By: #### L [id number] ####[facility] [place] [address] ALP [Catalytic activity/Vol] 71 U/L Normal 34-104 [facility] Comment on above: Performed By: #### L [id number] ####[facility] [place] [address] ALT [Catalytic activity/Vol] 20 U/L Normal 7-52 [facility] Comment on above: Performed By: #### L [id number] ####[facility] [place] [address] AST [Catalytic activity/Vol] 16 U/L Normal 13-39 [facility] Comment on above: Performed By: #### L [id number] ####[facility] [place] [address] Bilirubin [Mass/Vol] 0.4 mg/dL Normal 0.3-1.0 [facility] Comment on above: Performed By: #### L [id number] ####[facility] [place] [address] Magnesium [Mass/Vol] 0.1 mg/dL Normal 0-0.2 [facility] Comment on above: Performed By: #### L [id number] ####[facility] [place] [address] Protein [Mass/Vol] 6.5 g/dL Normal 6.0-8.3 [facility] Comment on above: Performed By: #### L [id number] ####[facility] [place] [address] Labon 11-29-2022 Lab Normal [facility] MAGNESIUMon 11-29-2022 Magnesium [Mass/Vol] 1.6 mg/dL Low 1.9-2.7 [facility] Comment on above: Performed By: #### L [id number] ####[facility] [place] [address] MANUAL DIFFERENTIALon 2022 BASOPHILS (10*3/UL) IN BLOOD BY CALCULATION 0.10 10*3/uL Normal [facility] Comment on above: Performed By: #### L [id number] ####[facility] [place] [address] BASOPHILS/100 LEUKOCYTES IN BLOOD BY AUTOMATED COUNT 1.0 % Normal 0.0-1.0 [facility] Comment on above: Performed By: #### L [id number] ####[facility] [place] [address] EOSINOPHILS (10*3/UL) IN BLOOD BY CALCULATION 0.19 10*3/uL Normal [facility] Comment on above: Performed By: #### L [id number] ####[facility] [place] [address] EOSINOPHILS/100 LEUKOCYTES IN BLOOD BY AUTOMATED COUNT 2.0 % Normal 0.0-6.0 [facility] Comment on above: Performed By: #### L [id number] ####[facility])[address] [place] [address] LYMPHOCYTES (10*3/UL) IN BLOOD BY CALCULATION 1.07 10*3/uL Low 1.20-4.00 [facility] Comment on above: Performed By: #### L [id number] ####[facility] [place] [address] LYMPHOCYTES/100 LEUKOCYTES IN BLOOD BY AUTOMATED COUNT 11.0 % Low 20.0-45.0 [facility] Comment on above: Performed By: #### L [id number] ####[facility] [place] [address] METAMYELOCYTES (10*3/UL) IN BLOOD BY CALCULATION 0.29 10*3/uL Normal [facility] Comment on above: Performed By: #### L [id number] ####[facility] [place] [address] METAMYELOCYTES/100 LEUKOCYTES IN BLOOD CELLAVISION 3.0 % Normal [facility] Comment on above: Performed By: #### L [id number] ####[facility] [place] [address] MONOCYTES (10*3/UL) IN BLOOD BY CALCUATION 0.39 10*3/uL Normal [facility] Comment on above: Performed By: #### L [id number] ####[facility] [place] [address] MONOCYTES/100 LEUKOCYTES IN BLOOD BY AUTOMATED COUNT 4.0 % Low 5.0-12.0 [facility] Comment on above: Performed By: #### L [id number] ####[facility] [place] [address] NEUTROPHILS (10*3/UL) IN BLOOD BY CALCULATION 7.7 10*3/uL High 1.6-7.6 [facility] Comment on above: Performed By: #### L [id number] ####[facility] [place] [address] NEUTROPHILS/100 LEUKOCYTES IN BLOOD BY AUTOMATED COUNT 79.0 % High 40.0-72.0 [facility] Comment on above: Performed By: #### L [id number] ####[facility] [place] [address] PLASMA CELLS/100 LEUKOCYTES IN BLOOD 0 % Normal [facility] Comment on above: Performed By: #### L [id number] ####[facility] [place] [address] PLATELETS GIANT PRESENCE IN BLOOD BY LIGHT MICROSCOPY Present Normal [facility] Comment on above: Performed By: #### L [id number] ####[facility] [place] [address] VARIANT LYMPHOCYTES (10*3/UL) IN BLOOD BY CALCULATION 0.00 10*3/uL [facility] Comment on above: Performed By: #### L [id number] ####[facility] [place] [address] VARIANT LYMPHOCYTES/100 LEUKOCYTES IN BLOOD CELLAVISION 0.0 % Normal [facility] Comment on above: Performed By: #### L [id number] ####[facility] [place] [address] PHOSPHORUSon 11-29-2022 Magnesium [Mass/Vol] 3.1 mg/dL Normal 2.5-5.0 [facility] Comment on above: Performed By: #### L [id number] ####[facility] [place] [address] TACROLIMUS LEVELon 3 Tacrolimus (Bld) [Mass/Vol] 7.0 ng/mL Normal 5.0-20.0 [facility] Comment on above: Result Comment: The [employer] Tacrolimus assay is a delayed one-step immunoassay for the quantitative determination of tacrolimus in human whole blood using the chemiluminescent microparticle immunoassay (CMIA) technology with flexible assay protocols, referred to as Chemiflex. Performed By: #### L [id number] ####[facility] [place] [address] URIC ACIDon 11-29-2022 Magnesium [Mass/Vol] 3.2 mg/dL Normal 2.3-6.6 [facility] Comment on above: Performed By: #### L [id number] ####[facility] [place] [address] Orders Onlyon 11-25-2022 Orders Only [facility] 36on 11-22-2022 36 Patient called into the office stating she needs clearance from the [facility] [employer]/Tx surgeon to get her teeth cleaned. Please advise. Pearl Glue Operator is not sure if there is a time frame of how long the patient should wait to have dental work after tx. [facility] 36on 11-19-2022 36 Patient called into the office requesting to have her Bactrim sent to a local pharmacy since her speciality pharmacy is out of stock. [facility] Glue Operator [facility]. Normal [facility] BASIC METABOLIC PANELon 11-06 Anion gap [Moles/Vol] 12 mmol/L Normal 7-20 [facility] Comment on above: Performed By: #### L [id number] ####[facility] [place] [address] Calcium [Mass/Vol] 9.3 mg/dL Normal 8.6-10.3 [facility] Comment on above: Performed By: #### L [id number] ####[facility] [place] [address] Chloride [Moles/Vol] 103 mmol/L Normal 98-107 [facility] Comment on above: Performed By: #### L [id number] ####[facility] [place] [address] CO2 [Moles/Vol] 23 mmol/L Normal 21-31 [facility] Comment on above: Performed By: #### L [id number] ####[facility] [place] [address] Creatinine [Mass/Vol] 1.45 mg/dL High 0.60-1.20 [facility] Comment on above: Performed By: #### L [id number] ####[facility] [place] [address] GLOMERULAR FILTRATION RATE ML/MIN/1.73 SQ M.PREDICTED 43.2 mL/min/1.73m*2 Low >60.0 [facility] Comment on above: Result Comment: The [facility]???s estimated glomerular filtration rate (eGFR) will no longer include consideration of race in its calculation. The National Kidney Foundation???s eGFR Task Force developed new recommendations for the estimation of the glomerular filtration rate in the [place] They recommend immediate implementation of the new equation refit without the race variable in all laboratories because the calculation does not include race. In addition to not including race in the calculation and reporting, it included diversity in its development, and has acceptable performance characteristics and potential consequences that do not disproportionately affect any one group of individuals. Performed By: #### L [id number] ####[facility] [place] [address] Glucose [Mass/Vol] 137 mg/dL High 70-100 [facility] Comment on above: Performed By: #### L [id number] ####[facility] [place] [address] Potassium [Moles/Vol] 3.7 mmol/L Normal 3.5-5.1 [facility] Comment on above: Performed By: #### L [id number] ####[facility] [place] [address] Sodium [Moles/Vol] 134 mmol/L Low 136-145 [facility] Comment on above: Performed By: #### L [id number] ####[facility] [place] [address] Urea nitrogen [Mass/Vol] 23 mg/dL Normal 7-25 [facility] Comment on above: Performed By: #### L [id number] ####[facility])[address] [place] [address] UREA NITROGEN/CREATININE (MASS RATIO) IN SER/PLAS 15.86 Normal [facility] Comment on above: Performed By: #### L [id number] ####[facility])[address] [place] [address] CBC WITH AUTO DIFFERENTIALon 11-19-2022 Erythrocyte distribution width (RBC) [Ratio] 14.7 % Normal 11.5-15.0 [facility] Comment on above: Performed By: #### L [id number] ####[facility])[address] [place] [address] ERYTHROCYTE MEAN CORPUSCULAR HEMOGLOBIN CONCENTRATION (G/DL) BY AUTOMATED 34.0 g/dL Normal 32.0-35.0 [facility] Comment on above: Performed By: #### L [id number] ####[facility] [place] [address] Hematocrit (Bld) [Volume fraction] 34.1 % Low 36.0-48.0 [facility] Comment on above: Performed By: #### L [id number] ####[facility] [place] [address] Hemoglobin (Bld) [Mass/Vol] 11.6 g/dL Low 12.0-15.0 [facility] Comment on above: Performed By: #### L [id number] ####[facility] [place] [address] MCH (RBC) [Entitic mass] 32.1 pg Normal 27.0-33.0 [facility] Comment on above: Performed By: #### L [id number] ####[facility] [place] [address] MCV (RBC) [Entitic vol] 94.5 fL Normal 82.0-98.0 [facility] Comment on above: Performed By: #### L [id number] ####[facility] [place] [address] NRBC (PER 100 WBCS) BY AUTOMATED COUNT 0.0 % Normal 0.0-0.0 [facility] Comment on above: Performed By: #### L [id number] ####[facility])[address] [place] [address] PLATELETS (10*3/UL) IN BLOOD AUTOMATED COUNT 343 10*3/uL Normal 150-400 [facility] Comment on above: Performed By: #### L [id number] ####[facility] [place] [address] RBC (Bld) [#/Vol] 3.61 10*6/uL Low 3.80-5.00 [facility] Comment on above: Performed By: #### L [id number] ####[facility] [place] [address] WBC (Bld) [#/Vol] 9.64 10*3/uL Normal 4.00-10.60 [facility] Comment on above: Performed By: #### L [id number] ####[facility] [place] [address] HEPATIC FUNCTION PANELon Albumin [Mass/Vol] 4.3 g/dL Normal 3.5-5.7 [facility] Comment on above: Performed By: #### L [id number] ####[facility] [place] [address] ALP [Catalytic activity/Vol] 75 U/L Normal 34-104 [facility] Comment on above: Performed By: #### L [id number] ####[facility] [place] [address] ALT [Catalytic activity/Vol] 16 U/L Normal 7-52 [facility] Comment on above: Performed By: #### L [id number] ####[facility] [place] [address] AST [Catalytic activity/Vol] 15 U/L Normal 13-39 [facility] Comment on above: Performed By: #### L [id number] ####[facility] [place] [address] Bilirubin [Mass/Vol] 0.4 mg/dL Normal 0.3-1.0 [facility] Comment on above: Performed By: #### L [id number] ####[facility] [place] [address] Magnesium [Mass/Vol] 0.1 mg/dL Normal 0-0.2 [facility] Comment on above: Performed By: #### L [id number] ####[facility] [place] [address] Protein [Mass/Vol] 7.0 g/dL Normal 6.0-8.3 [facility] Comment on above: Performed By: #### L [id number] ####[facility] [place] [address] Labon 11-19-2022 Lab Normal [facility] MAGNESIUMon 11-19-2022 Magnesium [Mass/Vol] 1.8 mg/dL Low 1.9-2.7 [facility] Comment on above: Performed By: #### L [id number] ####[facility] [place] [address] MANUAL DIFFERENTIALon 2022 BASOPHILS (10*3/UL) IN BLOOD BY CALCULATION 0.10 10*3/uL Normal [facility] Comment on above: Performed By: #### L [id number] ####[facility] [place] [address] BASOPHILS/100 LEUKOCYTES IN BLOOD BY AUTOMATED COUNT 1.0 % Normal 0.0-1.0 [facility] Comment on above: Performed By: #### L [id number] ####[facility] [place] [address] EOSINOPHILS (10*3/UL) IN BLOOD BY CALCULATION 0.00 10*3/uL Normal [facility] Comment on above: Performed By: #### L [id number] ####[facility] [place] [address] EOSINOPHILS/100 LEUKOCYTES IN BLOOD BY AUTOMATED COUNT 0.0 % Normal 0.0-6.0 [facility] Comment on above: Performed By: #### L [id number] ####[facility] [place] [address] LYMPHOCYTES (10*3/UL) IN BLOOD BY CALCULATION 1.18 10*3/uL Low 1.20-4.00 [facility] Comment on above: Performed By: #### L [id number] ####[facility] [place] [address] LYMPHOCYTES/100 LEUKOCYTES IN BLOOD BY AUTOMATED COUNT 12.2 % Low 20.0-45.0 [facility] Comment on above: Performed By: #### L [id number] ####[facility] [place] [address] METAMYELOCYTES (10*3/UL) IN BLOOD BY CALCULATION 0.30 10*3/uL Normal [facility] Comment on above: Performed By: #### L [id number] ####[facility] [place] [address] METAMYELOCYTES/100 LEUKOCYTES IN BLOOD CELLAVISION 3.1 % Normal [facility] Comment on above: Performed By: #### L [id number] ####[facility] [place] [address] MONOCYTES (10*3/UL) IN BLOOD BY CALCUATION 0.30 10*3/uL Normal [facility] Comment on above: Performed By: #### L [id number] ####[facility] [place] [address] MONOCYTES/100 LEUKOCYTES IN BLOOD BY AUTOMATED COUNT 3.1 % Low 5.0-12.0 [facility] Comment on above: Performed By: #### L [id number] ####[facility] [place] [address] NEUTROPHILS (10*3/UL) IN BLOOD BY CALCULATION 7.8 10*3/uL High 1.6-7.6 [facility] Comment on above: Performed By: #### L [id number] ####[facility] [place] [address] NEUTROPHILS/100 LEUKOCYTES IN BLOOD BY AUTOMATED COUNT 80.6 % High 40.0-72.0 [facility] Comment on above: Performed By: #### L [id number] ####[facility] [place] [address] PLASMA CELLS/100 LEUKOCYTES IN BLOOD 0 % Normal [facility] Comment on above: Performed By: #### L [id number] ####[facility] [place] [address] VARIANT LYMPHOCYTES (10*3/UL) IN BLOOD BY CALCULATION 0.00 10*3/uL Normal [facility] Comment on above: Performed By: #### L [id number] ####[facility] [place] [address] VARIANT LYMPHOCYTES/100 LEUKOCYTES IN BLOOD CELLAVISION 0.0 % Normal [facility] Comment on above: Performed By: #### L [id number] ####[facility] [place] [address] PHOSPHORUSon 11-19-2022 Magnesium [Mass/Vol] 2.9 mg/dL Normal 2.3-6.6 [facility] Comment on above: Performed By: #### L [id number] ####[facility] [place] [address] Performed By: #### L [id number] ####[facility] [place] [address] TACROLIMUS LEVELon Tacrolimus (Bld) [Mass/Vol] 11.7 ng/mL Normal 5.0-20.0 [facility] Comment on above: Result Comment: The [employer] Tacrolimus assay is a delayed one-step immunoassay for the quantitative determination of tacrolimus in human whole blood using the chemiluminescent microparticle immunoassay (CMIA) technology with flexible assay protocols, referred to as Chemiflex. Performed By: #### L [id number] ####[facility] [place] [address] Follow-Upon 11-08-2022 Follow-Up Normal [facility] BASIC METABOLIC PANELon Anion gap [Moles/Vol] 9 mmol/L Normal 7-20 [facility] Comment on above: Performed By: #### L [id number] ####[facility] [place] [address] Calcium [Mass/Vol] 9.2 mg/dL Normal 8.6-10.3 [facility] Comment on above: Performed By: #### L [id number] ####[facility] [place] [address] Chloride [Moles/Vol] 103 mmol/L Normal 98-107 [facility] Comment on above: Performed By: #### L [id number] ####[facility] [place] [address] CO2 [Moles/Vol] 24 mmol/L Normal 21-31 [facility] Comment on above: Performed By: #### L [id number] ####[facility] [place] [address] Creatinine [Mass/Vol] 1.46 mg/dL High 0.60-1.20 [facility] Comment on above: Performed By: #### L [id number] ####[facility] [place] [address] GLOMERULAR FILTRATION RATE ML/MIN/1.73 SQ M.PREDICTED 42.9 mL/min/1.73m*2 Low >60.0 [facility] Comment on above: Result Comment: The [facility]???s estimated glomerular filtration rate (eGFR) will no longer include consideration of race in its calculation. The National Kidney Foundation???s eGFR Task Force developed new recommendations for the estimation of the glomerular filtration rate in the [place] They recommend immediate implementation of the new equation refit without the race variable in all laboratories because the calculation does not include race. In addition to not including race in the calculation and reporting, it included diversity in its development, and has acceptable performance characteristics and potential consequences that do not disproportionately affect any one group of individuals. Performed By: #### L [id number] ####[facility] [place] [address] Glucose [Mass/Vol] 115 mg/dL High 70-100 [facility] Comment on above: Performed By: #### L [id number] ####[facility] [place] [address] Potassium [Moles/Vol] 3.9 mmol/L Normal 3.5-5.1 [facility] Comment on above: Performed By: #### L [id number] ####[facility] [place] [address] Sodium [Moles/Vol] 136 mmol/L Normal 136-145 [facility] Comment on above: Performed By: #### L [id number] ####[facility] [place] [address] Urea nitrogen [Mass/Vol] 26 mg/dL High 7-25 [facility] Comment on above: Performed By: #### L [id number] ####[facility] [place] [address] UREA NITROGEN/CREATININE (MASS RATIO) IN SER/PLAS 17.81 Normal [facility] Comment on above: Performed By: #### L [id number] ####[facility] [place] [address] BK VIRUS, PLASMA, QUANTITATI VEon 11-06-2022 BK QUANTITATION Not detected Normal [facility] Comment on above: Result Comment: Meth od: BK virus was measured by quantitative polymerase chain reaction using a fluorescent hydrolysis probe targeting the polyomavirus BK REVERBERATORY SKIMMER-1 gene.The lower limit of quantitation of the assay is 500 copies of BK genome per milliliter of plasma or urine, and any detectable BK DNA below that level is reported as: Detected, <500 copies/ml. Serial BK virus measurement can be used to monitor disease activity. (Reference: Gordon chaneyl. J CLIN MICRO 2004; 42:4187-7288).This test was developed and its performance characteristics determined by the [facility]. It has not been approved by the US Food and Drug Administration. However, such approval is not required for clinical implementation, and test results have been shown to be clinically useful. This laboratory is CAP accredited and CLIA certified to perform high complexity testing. Performed By: #### L [id number] ####[facility] [place] [address] BK QUANTITATION LOG Not detected Normal [facility] Comment on above: Performed By: #### L [id number] ####[facility] [place] [address] CBC WITH AUTO DIFFERENTIALon 11-06-2022 Basophils (Bld) [#/Vol] 0.08 10*3/uL Normal 0.00-0.20 [facility] Comment on above: Performed By: #### L [id number] ####[facility] [place] [address] Basophils/100 WBC (Bld) 1.0 % Normal 0.0-1.0 [facility] Comment on above: Performed By: #### L [id number] ####[facility] [place] [address] Eosinophils (Bld) [#/Vol] 0.10 10*3/uL Normal 0.00-0.50 [facility] Comment on above: Performed By: #### L [id number] ####[facility] [place] [address] Eosinophils/100 WBC (Bld) 1.2 % Normal 0.0-6.0 [facility] Comment on above: Performed By: #### L [id number] ####[facility] [place] [address] Erythrocyte distribution width (RBC) [Ratio] 14.8 % Normal 11.5-15.0 [facility] Comment on above: Performed By: #### L [id number] ####[facility] [place] [address] ERYTHROCYTE MEAN CORPUSCULAR HEMOGLOBIN CONCENTRATION (G/DL) BY AUTOMATED 32.0 g/dL Normal 32.0-35.0 [facility] Comment on above: Performed By: #### L [id number] ####[facility] [place] [address] Hematocrit (Bld) [Volume fraction] 32.8 % Low 36.0-48.0 [facility] Comment on above: Performed By: #### L [id number] ####[facility] [place] [address] Hemoglobin (Bld) [Mass/Vol] 10.5 g/dL Low 12.0-15.0 [facility] Comment on above: Performed By: #### L [id number] ####[facility] [place] [address] Immature granulocytes (Bld) [#/Vol] 0.31 10*3/uL High 0.00-0.20 [facility] Comment on above: Performed By: #### L [id number] ####[facility] [place] [address] Immature granulocytes/100 WBC (Bld) 3.7 % High 0.0-1.0 [facility] Comment on above: Performed By: #### L [id number] ####[facility] [place] [address] Lymphocytes (Bld) [#/Vol] 0.69 10*3/uL Low 1.20-4.00 [facility] Comment on above: Performed By: #### L [id number] ####[facility] [place] [address] Lymphocytes/100 WBC (Bld) 8.2 % Low 20.0-45.0 [facility] Comment on above: Performed By: #### L [id number] ####[facility] [place] [address] MCH (RBC) [Entitic mass] 30.6 pg Normal 27.0-33.0 [facility] Comment on above: Performed By: #### L [id number] ####[facility] [place] [address] MCV (RBC) [Entitic vol] 95.6 fL Normal 82.0-98.0 [facility] Comment on above: Performed By: #### L [id number] ####[facility] [place] [address] Monocytes (Bld) [#/Vol] 0.31 10*3/uL Normal 0.10-1.00 [facility] Comment on above: Performed By: #### L [id number] ####[facility] [place] [address] Monocytes/100 WBC (Bld) 3.7 % Low 5.0-12.0 [facility] Comment on above: Performed By: #### L [id number] ####[facility] [place] [address] Neutrophils (Bld) [#/Vol] 6.91 10*3/uL Normal 1.60-7.60 [facility] Comment on above: Performed By: #### L [id number] ####[facility] ([facility]AKER)[address] [place] [address] Neutrophils/100 WBC (Bld) 82.2 % High 40.0-72.0 [facility] Comment on above: Performed By: #### L [id number] ####[facility] ([facility])[address] [place], [place] [address] NRBC (PER 100 WBCS) BY AUTOMATED COUNT 0.0 % Normal 0.0-0.0 [facility] Comment on above: Performed By: #### L [id number] ####[facility] ([facility])[address] [place] [address] PLATELETS (10*3/UL) IN BLOOD AUTOMATED COUNT 280 10*3/uL Normal 150-400 [facility] Comment on above: Performed By: #### L [id number] ####[facility] ([facility])[address] [place] [address] RBC (Bld) [#/Vol] 3.43 10*6/uL Low 3.80-5.00 [facility] Comment on above: Performed By: #### L [id number] ####[facility] ([facility])[address] [place] [address] WBC (Bld) [#/Vol] 8.40 10*3/uL Normal 4.00-10.60 [facility] Comment on above: Performed By: #### L [id number] ####[facility] ([facility])[address] [place] [address] CREATININE, URINE, RANDOMon 11-06-2022 Creatinine (U) [Mass/Vol] 62.0 mg/dL Normal 26-299 [facility] Comment on above: Performed By: #### L [id number] ####[facility] ([facility])[address] [place] [address] HEMOGLOBIN A1Con 11-06-2022 Glucose [Mass/Vol] 105.41 mg/dL Normal [facility] Comment on above: Performed By: #### L [id number] ####[facility] ([facility])[address] [place] [address] HbA1c (Bld) [Mass fraction] 5.3 % Normal 4.0-6.0 [facility] Comment on above: Performed By: #### L [id number] ####[facility] ([facility])[address] [place] [address] HEPATIC FUNCTION PANELon Albumin [Mass/Vol] 4.3 g/dL Normal 3.5-5.7 [facility] Comment on above: Performed By: #### L [id number] ####[facility] ([facility])[address] [place] [address] ALP [Catalytic activity/Vol] 83 U/L Normal 34-104 [facility] Comment on above: Performed By: #### L [id number] ####[facility] ([facility])[address] [place] [address] ALT [Catalytic activity/Vol] 15 U/L Normal 7-52 [facility] Comment on above: Performed By: #### L [id number] ####[facility] ([facility])[address] [place] [address] AST [Catalytic activity/Vol] 13 U/L Normal 13-39 [facility] Comment on above: Performed By: #### L [id number] ####[facility] ([facility])[address] [place] [address] Bilirubin [Mass/Vol] 0.4 mg/dL Normal 0.3-1.0 [facility] Comment on above: Performed By: #### L [id number] ####[facility] ([facility])[address] [place] [address] Magnesium [Mass/Vol] 0.0 mg/dL Normal 0-0.2 [facility] Comment on above: Performed By: #### L [id number] ####[facility] ([facility])[address] [place] [address] Protein [Mass/Vol] 6.7 g/dL Normal 6.0-8.3 [facility] Comment on above: Performed By: #### L [id number] ####[facility] ([facility])[address] [place] [address] LIPID PANELon 11-06-2022 CHOL/HDL 4.43 mg/dL Normal [facility] Comment on above: Performed By: #### L [id number] ####[facility] ([facility])[address] [place] [address] Cholesterol [Mass/Vol] 266 mg/dL High 120-200 [facility] Comment on above: Performed By: #### L [id number] ####[facility] ([facility])[address] [place] [address] Magnesium [Mass/Vol] 307 mg/dL High 40-149 [facility] Comment on above: Result Comment: TRIG LYCERIDE REFERENCE RANGE:20 YEARS AND OLDER CARDIOVASCULAR RISKLESS THAN 150 mg/dL LOW [id number] TO 199 mg/dL BORDERLINE [id number] mg/dL AND GREATER HIGH RISK Performed By: #### L [id number] ####[facility] ([facility])[address] [place] [address] Magnesium [Mass/Vol] 145 mg/dL Normal 0-160 [facility] Comment on above: Performed By: #### L [id number] ####[facility] ([facility])[address] [place] [address] Magnesium [Mass/Vol] 60 mg/dL Normal 23-92 [facility] Comment on above: Performed By: #### L [id number] ####[facility] ([facility])[address] [place] [address] NON HDL CHOL. (LDL+VLDL) 206 Normal [facility] Comment on above: Performed By: #### L [id number] ####[facility] ([facility])[address] [facility] [place] [address] TOTAL VLDL-C 61 mg/dL High 0-40 [facility] Comment on above: Performed By: #### L [id number] ####[facility] ([facility])[address] [place] [address] Labon 11-06-2022 Lab Normal [facility] MAGNESIUMon 11-06-2022 Magnesium [Mass/Vol] 1.7 mg/dL Low 1.9-2.7 [facility] Comment on above: Performed By: #### L [id number] ####[facility] ([facility])[address] [place] [address] CHRIST PROSPERAon 11-06-2022 PROSPERA RESULT Results to be mailed directly to physician's office by reference lab. Normal [facility] Comment on above: Performed By: #### L [id number] ####[facility], PANEL REACTIVE ANTIBODYon HOLD SPECIMEN Hold for add-ons. Normal [facility] Comment on above: Result Comment: Auto resulted. Performed By: #### L [id number] ####[facility] ([facility])[address] [place] [address] PHOSPHORUSon 11-06-2022 Magnesium [Mass/Vol] 2.9 mg/dL Normal 2.5-5.0 [facility] Comment on above: Performed By: #### L [id number] ####[facility] ([facility])[address] [place] [address] PROTEIN, URINE, RANDOMon Protein (U) [Mass/Vol] 14.0 mg/dL Normal [facility] Comment on above: Result Comment: Ther e are no established reference values for random urine specimens. Performed By: #### L [id number] ####[facility] (BEAKER)[address] [place] [address] SINGLE ANTIGEN CLASS Ion AB SCREEN COMMENTS No Class I donor spe cific antibody identified [facility] Comment on above: Performed By: #### L [id number] ####[facility] TISSUE TYPING (HISTOTRAC)[address] [place], [place] [address] CLASS I TESTED DATE Normal [facility] Comment on above: Performed By: #### L [id number] ####[facility] TISSUE TYPING (HISTOTRAC)[address] SINGLE ANTIGEN CLASS 1 TEST METHOD Class I Single Antigen Normal [facility] Comment on above: Performed By: #### L [id number] ####[facility] TISSUE TYPING (HISTOTRAC)[address] [place] [address] [facility] SINGLE ANTIGEN CLASS IIon AB SCREEN COMMENTS No Class II donor specific antibody identified [facility] Comment on above: Performed By: #### L [id number] ####[facility] TISSUE TYPING (HISTOTRAC)[address] [place] [address] [facility] CLASS II TESTED DATE [facility] Comment on above: Performed By: #### L [id number] ####[facility] TISSUE TYPING (HISTOTRAC)[address] [place], [place] [address] SIGNED BY Signed by Sree escamilla [facility] PARKER[facility] [employer]inery Operator [employer] Transplant Immunology [facility] Comment on above: Performed By: #### L [id number] ####[facility] TISSUE TYPING (HISTOTRAC)[address] [place] [address] [place] Result Comment: Clas s I Antigen Microbeads Performed By: #### L [id number] ####[facility] TISSUE TYPING (HISTOTRAC)[address] [place] [address] [place] SINGLE ANTIGEN CLASS 2 TEST METHOD Class II Single Antigen Normal [facility] Comment on above: Result Comment: Clas s II Antigen Microbeads Performed By: #### L [id number] ####[facility] TISSUE TYPING (HISTOTRAC)[address] [place] [address] [place] TACROLIMUS LEVELon Tacrolimus (Bld) [Mass/Vol] 8.1 ng/mL Normal 5.0-20.0 [facility] Comment on above: Result Comment: The [employer] Tacrolimus assay is a delayed one-step immunoassay for the quantitative determination of tacrolimus in human whole blood using the chemiluminescent microparticle immunoassay (CMIA) technology with flexible assay protocols, referred to as Chemiflex. Performed By: #### L [id number] ####[facility] ([facility])[address] [place] [address] URIC ACIDon 11-06-2022 Magnesium [Mass/Vol] 3.0 mg/dL Normal 2.3-6.6 [facility] Comment on above: Performed By: #### L [id number] ####[facility] ([facility])[address] [place] [address] BASIC METABOLIC PANELon 10-06 Anion gap [Moles/Vol] 9 mmol/L Normal 7-20 [facility] Comment on above: Performed By: #### L [id number] ####[facility] ([facility]AKER)[address] [place] [address] Calcium [Mass/Vol] 9.5 mg/dL Normal 8.6-10.3 [facility] Comment on above: Performed By: #### L [id number] ####[facility] (BEAKER)[address] [place] [address] Chloride [Moles/Vol] 102 mmol/L Normal 98-107 [facility] Comment on above: Performed By: #### L [id number] ####[facility] ([facility])[address] [place] [address] CO2 [Moles/Vol] 25 mmol/L Normal 21-31 [facility] Comment on above: Performed By: #### L [id number] ####[facility] ([facility])[address] [place] [address] Creatinine [Mass/Vol] 1.54 mg/dL High 0.60-1.20 [facility] Comment on above: Performed By: #### L [id number] ####[facility] ([facility])[address] [place] [address] GLOMERULAR FILTRATION RATE ML/MIN/1.73 SQ M.PREDICTED 40.2 mL/min/1.73m*2 Low >60.0 [facility] Comment on above: Result Comment: The [facility]???s estimated glomerular filtration rate (eGFR) will no longer include consideration of race in its calculation. The National Kidney Foundation???s eGFR Task Force developed new recommendations for the estimation of the glomerular filtration rate in the [place] They recommend immediate implementation of the new equation refit without the race variable in all laboratories because the calculation does not include race. In addition to not including race in the calculation and reporting, it included diversity in its development, and has acceptable performance characteristics and potential consequences that do not disproportionately affect any one group of individuals. Performed By: #### L [id number] ####[facility] ([facility])[address] [place] [address] Glucose [Mass/Vol] 107 mg/dL High 70-100 [facility] Comment on above: Performed By: #### L [id number] ####[facility] ([facility])[address] [place] [address] Potassium [Moles/Vol] 3.9 mmol/L Normal 3.5-5.1 [facility] Comment on above: Performed By: #### L [id number] ####[facility] ([facility])[address] [place] [address] Sodium [Moles/Vol] 136 mmol/L Normal 136-145 [facility] Comment on above: Performed By: #### L [id number] ####[facility] ([facility])[address] [place] [address] Urea nitrogen [Mass/Vol] 30 mg/dL High 7-25 [facility] Comment on above: Performed By: #### L [id number] ####[facility] ([facility])[address] [place] [address] UREA NITROGEN/CREATININE (MASS RATIO) IN SER/PLAS 19.48 Normal [facility] Comment on above: Performed By: #### L [id number] ####[facility] ([facility])[address] [place] [address] CBC WITH AUTO DIFFERENTIALon 10-23-2022 Basophils (Bld) [#/Vol] 0.10 10*3/uL Normal 0.00-0.20 [facility] Comment on above: Performed By: #### L [id number] ####[facility] ([facility])[address] [place] [address] Basophils/100 WBC (Bld) 1.1 % High 0.0-1.0 [facility] Comment on above: Performed By: #### L [id number] ####[facility] ([facility])[address] [place] [address] Eosinophils (Bld) [#/Vol] 0.10 10*3/uL Normal 0.00-0.50 [facility] Comment on above: Performed By: #### L [id number] ####[facility] ([facility])[address] [place] [address] Eosinophils/100 WBC (Bld) 1.1 % Normal 0.0-6.0 [facility] Comment on above: Performed By: #### L [id number] ####[facility] ([facility])[address] [place] [address] Erythrocyte distribution width (RBC) [Ratio] 14.3 % Normal 11.5-15.0 [facility] Comment on above: Performed By: #### L [id number] ####[facility] (BEAKER)[address] [place] [address] ERYTHROCYTE MEAN CORPUSCULAR HEMOGLOBIN CONCENTRATION (G/DL) BY AUTOMATED 32.6 g/dL Normal 32.0-35.0 [facility] Comment on above: Performed By: #### L [id number] ####[facility] (BEAKER)[address] [place] [address] Hematocrit (Bld) [Volume fraction] 32.5 % Low 36.0-48.0 [facility] Comment on above: Performed By: #### L [id number] ####[facility] (BEAKER)[address] [place] [address] Hemoglobin (Bld) [Mass/Vol] 10.6 g/dL Low 12.0-15.0 [facility] Comment on above: Performed By: #### L [id number] ####[facility] (BEAKER)[address] [place] [address] Immature granulocytes (Bld) [#/Vol] 0.35 10*3/uL High 0.00-0.20 [facility] Comment on above: Performed By: #### L [id number] ####[facility] ([facility]ER)[address] [place] [address] Immature granulocytes/100 WBC (Bld) 3.9 % High 0.0-1.0 [facility] Comment on above: Performed By: #### L [id number] ####[facility] (BE[facility]ER)[address] [place] [address] Lymphocytes (Bld) [#/Vol] 0.49 10*3/uL Low 1.20-4.00 [facility] Comment on above: Performed By: #### L [id number] ####[facility] (BEAKER)[address] [place] [address] Lymphocytes/100 WBC (Bld) 5.5 % Low 20.0-45.0 [facility] Comment on above: Performed By: #### L [id number] ####[facility] (BEAKER)[address] [place] [address] MCH (RBC) [Entitic mass] 30.5 pg Normal 27.0-33.0 [facility] Comment on above: Performed By: #### L [id number] ####[facility] (BEAKER)[address] [place] [address] MCV (RBC) [Entitic vol] 93.4 fL Normal 82.0-98.0 [facility] Comment on above: Performed By: #### L [id number] ####[facility] ([facility])[address] [place] [address] Monocytes (Bld) [#/Vol] 0.56 10*3/uL Normal 0.10-1.00 [facility] Comment on above: Performed By: #### L [id number] ####[facility] ([facility])[address] [place] [address] Monocytes/100 WBC (Bld) 6.2 % Normal 5.0-12.0 [facility] Comment on above: Performed By: #### L [id number] ####[facility] (AKER)[address] [place] [address] Neutrophils (Bld) [#/Vol] 7.39 10*3/uL Normal 1.60-7.60 [facility] Comment on above: Performed By: #### L [id number] ####[facility] (BEAKER)[address] [place] [address] Neutrophils/100 WBC (Bld) 82.2 % High 40.0-72.0 [facility] Comment on above: Performed By: #### L [id number] ####[facility] (BEAKER)[address] [place] [address] NRBC (PER 100 WBCS) BY AUTOMATED COUNT 0.0 % Normal 0.0-0.0 [facility] Comment on above: Performed By: #### L [id number] ####[facility] (BEAKER)[address] [place] [address] PLATELETS (10*3/UL) IN BLOOD AUTOMATED COUNT 293 10*3/uL Normal 150-400 [facility] Comment on above: Performed By: #### L [id number] ####[facility] ([facility])[address] [place] [address] RBC (Bld) [#/Vol] 3.48 10*6/uL Low 3.80-5.00 [facility] Comment on above: Performed By: #### L [id number] ####[facility] ([facility])[address] [place] [address] WBC (Bld) [#/Vol] 8.99 10*3/uL Normal 4.00-10.60 [facility] Comment on above: Performed By: #### L [id number] ####[facility] ([facility])[address] [place] [address] Follow-Upon 10-23-2022 Follow-Up Normal [facility] HCV QUANTITATIVE TMAon 10-23 HCV QUANTITATIVE LOG Not detected [facility] Comment on above: Order Comment: The A ptima HCV Quant Dx assay is a real-time marketing teacher-mediated amplification (TMA) test which has a dynamic range of 10-100,000,000 IU/mL (1.0-8.0 log IU/mL). The Aptima HCV Quant Dx assay is used for both detection and quantitation of hepatitis C virus (HCV) RNA in human serum and plasma from HCV-infected individuals.The results from the Aptima HCV Quant Dx assay must be interpreted within the context of all relevant clinical and laboratory findings. The Aptima HCV Quant Dx assay is not approved for use as a screening test for the presence of HCV RNA in blood or blood products. Performed By: #### L [id number] ####[facility] ([facility])[address] [place] [address] HCV TMA INTERP Not detected Normal Not Detected [facility] Comment on above: Order Comment: The A ptima HCV Quant Dx assay is a real-time marketing teacher-mediated amplification (TMA) test which has a dynamic range of 10-100,000,000 IU/mL (1.0-8.0 log IU/mL). The Aptima HCV Quant Dx assay is used for both detection and quantitation of hepatitis C virus (HCV) RNA in human serum and plasma from HCV-infected individuals.The results from the Aptima HCV Quant Dx assay must be interpreted within the context of all relevant clinical and laboratory findings. The Aptima HCV Quant Dx assay is not approved for use as a screening test for the presence of HCV RNA in blood or blood products. Performed By: #### L [id number] ####[facility] ([facility])[address] [place] [address] HCV TMA QUANTITATIVE Not detected Normal [facility] Comment on above: Order Comment: The A ptima HCV Quant Dx assay is a real-time marketing teacher-mediated amplification (TMA) test which has a dynamic range of 10-100,000,000 IU/mL (1.0-8.0 log IU/mL). The Aptima HCV Quant Dx assay is used for both detection and quantitation of hepatitis C virus (HCV) RNA in human serum and plasma from HCV-infected individuals.The results from the Aptima HCV Quant Dx assay must be interpreted within the context of all relevant clinical and laboratory findings. The Aptima HCV Quant Dx assay is not approved for use as a screening test for the presence of HCV RNA in blood or blood products. Performed By: #### L [id number] ####[facility] ([facility])[address] [place] [address] HEPATIC FUNCTION PANELon Albumin [Mass/Vol] 4.3 g/dL Normal 3.5-5.7 [facility] Comment on above: Performed By: #### L [id number] ####[facility] ([facility])[address] [place] [address] ALP [Catalytic activity/Vol] 90 U/L Normal 34-104 [facility] Comment on above: Performed By: #### L [id number] ####[facility] ([facility])[address] [place] [address] ALT [Catalytic activity/Vol] 14 U/L Normal 7-52 [facility] Comment on above: Performed By: #### L [id number] ####[facility] (BEAKER)[address] [place] [address] AST [Catalytic activity/Vol] 12 U/L Low 13-39 [facility] Comment on above: Performed By: #### L [id number] ####[facility] (BEAKER)[address] [place] [address] Bilirubin [Mass/Vol] 0.3 mg/dL Normal 0.3-1.0 [facility] Comment on above: Performed By: #### L [id number] ####[facility] ([facility])[address] [place] [address] Magnesium [Mass/Vol] 0.0 mg/dL Normal 0-0.2 [facility] Comment on above: Performed By: #### L [id number] ####[facility] ([facility])[address] [place] [address] Protein [Mass/Vol] 6.8 g/dL Normal 6.0-8.3 [facility] Comment on above: Performed By: #### L [id number] ####[facility] ([facility])[address] [place] [address] HEPATITIS B QUANTITATIVE PCR on 10-23-2022 HBV DNA, QUANT PCR (IU/ML) Not detected Normal [facility] Comment on above: Performed By: #### L [id number] ####[facility] ([facility])[address] [place] [address] HBV DNA, QUANT PCR (LOG IU/ML) Not detected Normal [facility] Comment on above: Result Comment: Perf ormed by [employer],[address] [place] [address] tgz.[facility], Kamari Bennett MD, PHD, Lab. Director Performed By: #### L [id number] ####[facility] ([facility])[address] [place] [address] HBV DNA, QUANT PCR INTERP Not detected Normal Not Detected [facility] Comment on above: Result Comment: INTE RPRETIVE INFORMATION: HBV by Quantitative NAATNormal range for this assay is Not Detected .The quantitative range of this assay is 1.00-9.00 log IU/mL(10-1,000,000,000 IU/mL).An interpretation of Not Detected does not rule out the presenceof inhibitors in the patient specimen or HBV DNA concentrationbelow the level of detection of the test. Care should be takenwhen interpreting any single viral load determination.This assay should not be used for blood donor screening,associated re-entry protocols, or for screening Human Cell,Tissues and Cellular Tissue-Based Products (HCT/P). Performed By: #### L [id number] ####[facility] (BEAKER)[address] [place] [address] HIV RNA, QUANTITATIVE, TMAon 10-23-2022 HIV QUANTITATIVE RNA Not detected Normal [facility] Comment on above: Order Comment: The A ptima HIV Quant assay is a real-time marketing teacher-mediated amplification (TMA) test which has a dynamic range of 30-10,000,000 copies/mL (1.47-7.0 log copies/mL). The Aptima HIV Quant assay is used for quantitation of human immunodeficiency virus type 1 (HIV-1) RNA in human plasma from HIV-infected individuals. The Aptima HIV-1 Quant assay is intended for use in conjunction with clinical presentation and other laboratory markers for disease prognosis and for use as an aid in monitoring the effects of antiretroviral treatment, as measured by changes in plasma HIV-1 RNA levels.This assay is not intended to be used as a donor screening test for HIV-1 or as a diagnostic test to confirm the presence of HIV-1 infection. Performed By: #### L [id number] ####[facility] (BEAKER)[address] [place] [address] HIV QUANTITATIVE RNA LOG Not detected Normal [facility] Comment on above: Order Comment: The A ptima HIV Quant assay is a real-time marketing teacher-mediated amplification (TMA) test which has a dynamic range of 30-10,000,000 copies/mL (1.47-7.0 log copies/mL). The Aptima HIV Quant assay is used for quantitation of human immunodeficiency virus type 1 (HIV-1) RNA in human plasma from HIV-infected individuals. The Aptima HIV-1 Quant assay is intended for use in conjunction with clinical presentation and other laboratory markers for disease prognosis and for use as an aid in monitoring the effects of antiretroviral treatment, as measured by changes in plasma HIV-1 RNA levels.This assay is not intended to be used as a donor screening test for HIV-1 or as a diagnostic test to confirm the presence of HIV-1 infection. Performed By: #### L [id number] ####[facility] ([facility])[address] [place] [address] HIV-1 INTERPRETATION Not detected Normal Not Detected [facility] Comment on above: Order Comment: The A ptima HIV Quant assay is a real-time marketing teacher-mediated amplification (TMA) test which has a dynamic range of 30-10,000,000 copies/mL (1.47-7.0 log copies/mL). The Aptima HIV Quant assay is used for quantitation of human immunodeficiency virus type 1 (HIV-1) RNA in human plasma from HIV-infected individuals. The Aptima HIV-1 Quant assay is intended for use in conjunction with clinical presentation and other laboratory markers for disease prognosis and for use as an aid in monitoring the effects of antiretroviral treatment, as measured by changes in plasma HIV-1 RNA levels.This assay is not intended to be used as a donor screening test for HIV-1 or as a diagnostic test to confirm the presence of HIV-1 infection. Performed By: #### L [id number] ####[facility] [place] [address] Labon 10-23-2022 Lab Normal [facility] MAGNESIUMon 10-23-2022 Magnesium [Mass/Vol] 1.8 mg/dL Low 1.9-2.7 [facility] Comment on above: Performed By: #### L [id number] ####[facility] [place] [address] PHOSPHORUSon 10-23-2022 Magnesium [Mass/Vol] 3.1 mg/dL Normal 2.5-5.0 [facility] Comment on above: Performed By: #### L [id number] ####[facility] [place] [address] TACROLIMUS LEVELon Tacrolimus (Bld) [Mass/Vol] 8.1 ng/mL Normal 5.0-20.0 [facility] Comment on above: Result Comment: The [employer] Tacrolimus assay is a delayed one-step immunoassay for the quantitative determination of tacrolimus in human whole blood using the chemiluminescent microparticle immunoassay (CMIA) technology with flexible assay protocols, referred to as Chemiflex. Performed By: #### L [id number] ####[facility] [place] [address] URIC ACIDon 10-23-2022 Magnesium [Mass/Vol] 3.7 mg/dL Normal 2.3-6.6 [facility] Comment on above: Performed By: #### L [id number] ####[facility] [place] [address] URINE CULTURE, ROUTINEon Bacteria identified Cx Nom (U) No growth at 48 hours Normal [facility] Comment on above: Performed By: #### L [id number] ####[facility] [place] [address] 36on 10-19-2022 36 Normal [facility] Telephoneon 10-19-2022 Telephone Normal [facility] BASIC METABOLIC PANELon 10-06 Anion gap [Moles/Vol] 13 mmol/L Normal 7-20 [facility] Comment on above: Performed By: #### L [id number] ####[facility] [place] [address] Calcium [Mass/Vol] 9.8 mg/dL Normal 8.6-10.3 [facility] Comment on above: Performed By: #### L [id number] ####[facility] [place] [address] Chloride [Moles/Vol] 102 mmol/L Normal 98-107 [facility] Comment on above: Performed By: #### L [id number] ####[facility] [place] [address] CO2 [Moles/Vol] 19 mmol/L Low 21-31 [facility] Comment on above: Performed By: #### L [id number] ####[facility] [place] [address] Creatinine [Mass/Vol] 2.06 mg/dL High 0.60-1.20 [facility] Comment on above: Performed By: #### L [id number] ####[facility] [place] [address] GLOMERULAR FILTRATION RATE ML/MIN/1.73 SQ M.PREDICTED 28.3 mL/min/1.73m*2 Low >60.0 [facility] Comment on above: Result Comment: The [facility]???s estimated glomerular filtration rate (eGFR) will no longer include consideration of race in its calculation. The National Kidney Foundation???s eGFR Task Force developed new recommendations for the estimation of the glomerular filtration rate in the [place] They recommend immediate implementation of the new equation refit without the race variable in all laboratories because the calculation does not include race. In addition to not including race in the calculation and reporting, it included diversity in its development, and has acceptable performance characteristics and potential consequences that do not disproportionately affect any one group of individuals. Performed By: #### L [id number] ####[facility] [place] [address] Glucose [Mass/Vol] 129 mg/dL High 70-100 [facility] Comment on above: Performed By: #### L [id number] ####[facility] [place] [address] Potassium [Moles/Vol] 3.9 mmol/L Normal 3.5-5.1 [facility] Comment on above: Performed By: #### L [id number] ####[facility] [place] [address] Sodium [Moles/Vol] 134 mmol/L Low 136-145 [facility] Comment on above: Performed By: #### L [id number] ####[facility] [place] [address] Urea nitrogen [Mass/Vol] 38 mg/dL High 7-25 [facility] Comment on above: Performed By: #### L [id number] ####[facility] [place] [address] UREA NITROGEN/CREATININE (MASS RATIO) IN SER/PLAS 18.45 Normal [facility] Comment on above: Performed By: #### L [id number] ####[facility] [place] [address] CBC WITH AUTO DIFFERENTIALon 10-15-2022 Basophils (Bld) [#/Vol] 0.13 10*3/uL Normal 0.00-0.20 [facility] Comment on above: Performed By: #### L [id number] ####[facility] [place], [place] [address] Basophils/100 WBC (Bld) 1.1 % High 0.0-1.0 [facility] Comment on above: Performed By: #### L [id number] ####[facility] [place] [address] Eosinophils (Bld) [#/Vol] 0.43 10*3/uL Normal 0.00-0.50 [facility] Comment on above: Performed By: #### L [id number] ####[facility] [place] [address] Eosinophils/100 WBC (Bld) 3.7 % Normal 0.0-6.0 [facility] Comment on above: Performed By: #### L [id number] ####[facility] [place] [address] Erythrocyte distribution width (RBC) [Ratio] 13.9 % Normal 11.5-15.0 [facility] Comment on above: Performed By: #### L [id number] ####[facility] [place] [address] ERYTHROCYTE MEAN CORPUSCULAR HEMOGLOBIN CONCENTRATION (G/DL) BY AUTOMATED 32.8 g/dL Normal 32.0-35.0 [facility] Comment on above: Performed By: #### L [id number] ####[facility] [place] [address] Hematocrit (Bld) [Volume fraction] 35.1 % Low 36.0-48.0 [facility] Comment on above: Performed By: #### L [id number] ####[facility] [place] [address] Hemoglobin (Bld) [Mass/Vol] 11.5 g/dL Low 12.0-15.0 [facility] Comment on above: Performed By: #### L [id number] ####[facility] [place] [address] Immature granulocytes (Bld) [#/Vol] 0.40 10*3/uL High 0.00-0.20 [facility] Comment on above: Performed By: #### L [id number] ####[facility] [place] [address] Immature granulocytes/100 WBC (Bld) 3.5 % High 0.0-1.0 [facility] Comment on above: Performed By: #### L [id number] ####[facility] [place] [address] Lymphocytes (Bld) [#/Vol] 0.52 10*3/uL Low 1.20-4.00 [facility] Comment on above: Performed By: #### L [id number] ####[facility] [place] [address] Lymphocytes/100 WBC (Bld) 4.5 % Low 20.0-45.0 [facility] Comment on above: Performed By: #### L [id number] ####[facility] [place] [address] MCH (RBC) [Entitic mass] 30.4 pg Normal 27.0-33.0 [facility] Comment on above: Performed By: #### L [id number] ####[facility] [place] [address] MCV (RBC) [Entitic vol] 92.9 fL Normal 82.0-98.0 [facility] Comment on above: Performed By: #### L [id number] ####[facility] [place] [address] Monocytes (Bld) [#/Vol] 0.48 10*3/uL Normal 0.10-1.00 [facility] Comment on above: Performed By: #### L [id number] ####[facility] [place] [address] Monocytes/100 WBC (Bld) 4.2 % Low 5.0-12.0 [facility] Comment on above: Performed By: #### L [id number] ####[facility] [place] [address] Neutrophils (Bld) [#/Vol] 9.56 10*3/uL High 1.60-7.60 [facility] Comment on above: Performed By: #### L [id number] ####[facility] [place] [address] Neutrophils/100 WBC (Bld) 83.0 % High 40.0-72.0 [facility] Comment on above: Performed By: #### L [id number] ####[facility] [place] [address] NRBC (PER 100 WBCS) BY AUTOMATED COUNT 0.0 % Normal 0.0-0.0 [facility] Comment on above: Performed By: #### L [id number] ####[facility] [place] [address] PLATELETS (10*3/UL) IN BLOOD AUTOMATED COUNT 419 10*3/uL High 150-400 [facility] Comment on above: Performed By: #### L [id number] ####[facility] [place] [address] RBC (Bld) [#/Vol] 3.78 10*6/uL Low 3.80-5.00 [facility] Comment on above: Performed By: #### L [id number] ####[facility] [place] [address] WBC (Bld) [#/Vol] 11.52 10*3/uL High 4.00-10.60 [facility] Comment on above: Performed By: #### L [id number] ####[facility] [place] [address] CREATININE, URINE, RANDOMon 10-15-2022 Creatinine (U) [Mass/Vol] 82.0 mg/dL Normal 26-299 [facility] Comment on above: Performed By: #### L [id number] ####[facility] [place] [address] DEVICE CULTUREon 10-15-2022 Ampicillin [Susc] 1 ug/ml Susceptible [facility] Comment on above: Performed By: #### D EVICE CULTURE ####[facility] [place] [address] Vancomycin [Susc] 2 ug/ml Susceptible [facility] Comment on above: Performed By: #### D EVICE CULTURE ####[facility] [place] [address] Follow-Upon 10-15-2022 Follow-Up Normal [facility] HEMOGLOBIN A1Con 10-15-2022 Glucose [Mass/Vol] 105.41 mg/dL Normal [facility] Comment on above: Order Comment: NO VA RIANT Performed By: #### L [id number] ####[facility] [place] [address] HbA1c (Bld) [Mass fraction] 5.3 % Normal 4.0-6.0 [facility] Comment on above: Order Comment: NO VA RIANT Performed By: #### L [id number] ####[facility] [place] [address] HEPATIC FUNCTION PANELon Albumin [Mass/Vol] 4.6 g/dL Normal 3.5-5.7 [facility] Comment on above: Performed By: #### L [id number] ####[facility] [place] [address] ALP [Catalytic activity/Vol] 89 U/L Normal 34-104 [facility] Comment on above: Performed By: #### L [id number] ####[facility] [place] [address] ALT [Catalytic activity/Vol] 13 U/L Normal 7-52 [facility] Comment on above: Performed By: #### L [id number] ####[facility] [place] [address] AST [Catalytic activity/Vol] 12 U/L Low 13-39 [facility] Comment on above: Performed By: #### L [id number] ####[facility] [place] [address] Bilirubin [Mass/Vol] 0.4 mg/dL Normal 0.3-1.0 [facility] Comment on above: Performed By: #### L [id number] ####[facility] [place] [address] Magnesium [Mass/Vol] 0.1 mg/dL Normal 0-0.2 [facility] Comment on above: Performed By: #### L [id number] ####[facility] [place] [address] Protein [Mass/Vol] 7.4 g/dL Normal 6.0-8.3 [facility] Comment on above: Performed By: #### L [id number] ####[facility] [place] [address] LIPID PANELon 10-15-2022 CHOL/HDL 4.48 mg/dL Normal [facility] Comment on above: Performed By: #### L [id number] ####[facility] [place] [address] Cholesterol [Mass/Vol] 291 mg/dL High 120-200 [facility] Comment on above: Performed By: #### L [id number] ####[facility] [place] [address] Magnesium [Mass/Vol] 284 mg/dL High 40-149 [facility] Comment on above: Result Comment: TRIG LYCERIDE REFERENCE RANGE:20 YEARS AND OLDER CARDIOVASCULAR RISKLESS THAN 150 mg/dL LOW [id number] TO 199 mg/dL BORDERLINE [id number] mg/dL AND GREATER HIGH RISK Performed By: #### L [id number] ####[facility] [place] [address] Magnesium [Mass/Vol] 169 mg/dL High 0-160 [facility] Comment on above: Performed By: #### L [id number] ####[facility] [place] [address] Magnesium [Mass/Vol] 65 mg/dL Normal 23-92 [facility] Comment on above: Performed By: #### L [id number] ####[facility] [place] [address] NON HDL CHOL. (LDL+VLDL) 226 Normal [facility] Comment on above: Performed By: #### L [id number] ####[facility] [place] [address] TOTAL VLDL-C 57 mg/dL High 0-40 [facility] Comment on above: Performed By: #### L [id number] ####[facility] [place] [address] Labon 10-15-2022 Lab Normal [facility] MAGNESIUMon 10-15-2022 Magnesium [Mass/Vol] 1.7 mg/dL Low 1.9-2.7 [facility] Comment on above: Performed By: #### L [id number] ####[facility] [place] [address] Orders Onlyon 10-15-2022 Orders Only Normal [facility] PANEL REACTIVE ANTIBODYon HOLD SPECIMEN Hold for add-ons. Normal [facility] Comment on above: Result Comment: Auto resulted. Performed By: #### L [id number] ####[facility] [place] [address] PHOSPHORUSon 10-15-2022 Magnesium [Mass/Vol] 3.2 mg/dL Normal 2.5-5.0 [facility] Comment on above: Performed By: #### L [id number] ####[facility] [place] [address] PROTEIN, URINE, RANDOMon Protein (U) [Mass/Vol] 48.1 mg/dL [facility] Comment on above: Result Comment: Ther e are no established reference values for random urine specimens. Performed By: #### L [id number] ####[facility] [place] [address] TACROLIMUS LEVELon 3 Tacrolimus (Bld) [Mass/Vol] 5.9 ng/mL Normal 5.0-20.0 [facility] Comment on above: Result Comment: The [employer] Tacrolimus assay is a delayed one-step immunoassay for the quantitative determination of tacrolimus in human whole blood using the chemiluminescent microparticle immunoassay (CMIA) technology with flexible assay protocols, referred to as Chemiflex. Performed By: #### L [id number] ####[facility] [place] [address] URIC ACIDon 10-15-2022 Magnesium [Mass/Vol] 4.2 mg/dL Normal 2.3-6.6 [facility] Comment on above: Performed By: #### L [id number] ####[facility] [place] [address] BASIC METABOLIC PANELon 01-0 Anion gap [Moles/Vol] 11 mmol/L Normal 7-20 [facility] Comment on above: Performed By: #### L [id number] ####[facility] [place] [address] Calcium [Mass/Vol] 9.2 mg/dL Normal 8.6-10.3 [facility] Comment on above: Performed By: #### L [id number] ####[facility] [place] [address] Chloride [Moles/Vol] 104 mmol/L Normal 98-107 [facility] Comment on above: Performed By: #### L [id number] ####[facility] [place] [address] CO2 [Moles/Vol] 22 mmol/L Normal 21-31 [facility] Comment on above: Performed By: #### L [id number] ####[facility] [place] [address] Creatinine [Mass/Vol] 2.44 mg/dL High 0.60-1.20 [facility] Comment on above: Performed By: #### L [id number] ####[facility] [place] [address] GLOMERULAR FILTRATION RATE ML/MIN/1.73 SQ M.PREDICTED 23.0 mL/min/1.73m*2 Low >60.0 [facility] Comment on above: Result Comment: The [facility]???s estimated glomerular filtration rate (eGFR) will no longer include consideration of race in its calculation. The National Kidney Foundation???s eGFR Task Force developed new recommendations for the estimation of the glomerular filtration rate in the [place] They recommend immediate implementation of the new equation refit without the race variable in all laboratories because the calculation does not include race. In addition to not including race in the calculation and reporting, it included diversity in its development, and has acceptable performance characteristics and potential consequences that do not disproportionately affect any one group of individuals. Performed By: #### L [id number] ####[facility] [place] [address] Glucose [Mass/Vol] 99 mg/dL Normal 70-100 [facility] Comment on above: Performed By: #### L [id number] ####[facility] [place] [address] Potassium [Moles/Vol] 4.4 mmol/L Normal 3.5-5.1 [facility] Comment on above: Performed By: #### L [id number] ####[facility] [place] [address] Sodium [Moles/Vol] 137 mmol/L Normal 136-145 [facility] Comment on above: Performed By: #### L [id number] ####[facility] [place] [address] Urea nitrogen [Mass/Vol] 43 mg/dL High 7-25 [facility] Comment on above: Performed By: #### L [id number] ####[facility] [facility] [address] UREA NITROGEN/CREATININE (MASS RATIO) IN SER/PLAS 17.62 Normal [facility] Comment on above: Performed By: #### L [id number] ####[facility] [facility] [address] BK VIRUS, PLASMA, QUANTITATI VEon 10-08-2022 BK QUANTITATION Not detected Normal [facility] Comment on above: Result Comment: Meth od: BK virus was measured by quantitative polymerase chain reaction using a fluorescent hydrolysis probe targeting the polyomavirus BK REVERBERATORY SKIMMER-1 gene.The lower limit of quantitation of the assay is 500 copies of BK genome per milliliter of plasma or urine, and any detectable BK DNA below that level is reported as: Detected, <500 copies/ml. Serial BK virus measurement can be used to monitor disease activity. (Reference: Gordon rogel. J CLIN MICRO 2004; 42:2884-4569).This test was developed and its performance characteristics determined by the [facility]. It has not been approved by the [place] Food and Drug Administration. However, such approval is not required for clinical implementation, and test results have been shown to be clinically useful. This laboratory is CAP accredited and CLIA certified to perform high complexity testing. Performed By: #### L [id number] ####[facility] [facility] [place] [address] BK QUANTITATION LOG Not detected [facility] Comment on above: Performed By: #### L [id number] ####[facility] [facility] [place] [address] CBC WITH AUTO DIFFERENTIALon 10-08-2022 Basophils (Bld) [#/Vol] 0.08 10*3/uL Normal 0.00-0.20 [facility] Comment on above: Performed By: #### L [id number] ####[facility] [facility] [place] [address] Basophils/100 WBC (Bld) 0.9 % Normal 0.0-1.0 [facility] Comment on above: Performed By: #### L [id number] ####[facility] [facility] [place] [address] Eosinophils (Bld) [#/Vol] 0.27 10*3/uL Normal 0.00-0.50 [facility] Comment on above: Performed By: #### L [id number] ####[facility] [facility] [place] [address] Eosinophils/100 WBC (Bld) 3.0 % Normal 0.0-6.0 [facility] Comment on above: Performed By: #### L [id number] ####[facility] [facility] [place] [address] Erythrocyte distribution width (RBC) [Ratio] 13.8 % Normal 11.5-15.0 [facility] Comment on above: Performed By: #### L [id number] ####[facility] [place] [address] ERYTHROCYTE MEAN CORPUSCULAR HEMOGLOBIN CONCENTRATION (G/DL) BY AUTOMATED 31.4 g/dL Low 32.0-35.0 [facility] Comment on above: Performed By: #### L [id number] ####[facility] [place] [address] Hematocrit (Bld) [Volume fraction] 33.1 % Low 36.0-48.0 [facility] Comment on above: Performed By: #### L [id number] ####[facility] [place] [address] Hemoglobin (Bld) [Mass/Vol] 10.4 g/dL Low 12.0-15.0 [facility] Comment on above: Performed By: #### L [id number] ####[facility] [place] [address] Immature granulocytes (Bld) [#/Vol] 0.09 10*3/uL Normal 0.00-0.20 [facility] Comment on above: Performed By: #### L [id number] ####[facility] [place] [address] Immature granulocytes/100 WBC (Bld) 1.0 % Normal 0.0-1.0 [facility] Comment on above: Performed By: #### L [id number] ####[facility] [place] [address] Lymphocytes (Bld) [#/Vol] 0.19 10*3/uL Low 1.20-4.00 [facility] Comment on above: Performed By: #### L [id number] ####[facility] [place] [address] Lymphocytes/100 WBC (Bld) 2.1 % Low 20.0-45.0 [facility] Comment on above: Performed By: #### L [id number] ####[facility] [place] [address] MCH (RBC) [Entitic mass] 30.1 pg Normal 27.0-33.0 [facility] Comment on above: Performed By: #### L [id number] ####[facility] [place] [address] MCV (RBC) [Entitic vol] 95.9 fL Normal 82.0-98.0 [facility] Comment on above: Performed By: #### L [id number] ####[facility] [place] [address] Monocytes (Bld) [#/Vol] 0.41 10*3/uL Normal 0.10-1.00 [facility] Comment on above: Performed By: #### L [id number] ####[facility] [place] [address] Monocytes/100 WBC (Bld) 4.5 % Low 5.0-12.0 [facility] Comment on above: Performed By: #### L [id number] ####[facility] [place] [address] Neutrophils (Bld) [#/Vol] 8.06 10*3/uL High 1.60-7.60 [facility] Comment on above: Performed By: #### L [id number] ####[facility] [place] [address] Neutrophils/100 WBC (Bld) 88.5 % High 40.0-72.0 [facility] Comment on above: Performed By: #### L [id number] ####[facility] ([facility])[address] [place] [address] NRBC (PER 100 WBCS) BY AUTOMATED COUNT 0.0 % Normal 0.0-0.0 [facility] Comment on above: Performed By: #### L [id number] ####[facility] ([facility])[address] [place] [address] PLATELETS (10*3/UL) IN BLOOD AUTOMATED COUNT 302 10*3/uL Normal 150-400 [facility] Comment on above: Performed By: #### L [id number] ####[facility] ([facility] [place] [address] RBC (Bld) [#/Vol] 3.45 10*6/uL Low 3.80-5.00 [facility] Comment on above: Performed By: #### L [id number] ####[facility] ([facility])[address] [place], [place] [address] WBC (Bld) [#/Vol] 9.10 10*3/uL Normal 4.00-10.60 [facility] Comment on above: Performed By: #### L [id number] ####[facility] ([facility])[address] [place] [address] HEMOGLOBIN A1Con 10-08-2022 Glucose [Mass/Vol] 111.15 mg/dL Normal [facility] Comment on above: Performed By: #### L [id number] ####[facility] ([facility])[address] [place] [address] HbA1c (Bld) [Mass fraction] 5.5 % Normal 4.0-6.0 [facility] Comment on above: Performed By: #### L [id number] ####[facility] ([facility])[address] [place] [address] HEPATIC FUNCTION PANELon Albumin [Mass/Vol] 4.3 g/dL Normal 3.5-5.7 [facility] Comment on above: Performed By: #### L [id number] ####[facility] ([facility])[address] [place] [address] ALP [Catalytic activity/Vol] 77 U/L Normal 34-104 [facility] Comment on above: Performed By: #### L [id number] ####[facility] ([facility])[address] [place] [address] ALT [Catalytic activity/Vol] 13 U/L Normal 7-52 [facility] Comment on above: Performed By: #### L [id number] ####[facility] ([facility])[address] [place] [address] AST [Catalytic activity/Vol] 12 U/L Low 13-39 [facility] Comment on above: Performed By: #### L [id number] ####[facility] ([facility])[address] [place] [address] Bilirubin [Mass/Vol] 0.3 mg/dL Normal 0.3-1.0 [facility] Comment on above: Performed By: #### L [id number] ####[facility] ([facility])[address] [place] [address] Magnesium [Mass/Vol] 0.0 mg/dL Normal 0-0.2 [facility] Comment on above: Performed By: #### L [id number] ####[facility] ([facility])[address] [place] [address] Protein [Mass/Vol] 6.9 g/dL Normal 6.0-8.3 [facility] Comment on above: Performed By: #### L [id number] ####[facility] ([facility])[address] [place] [address] LIPID PANELon 10-08-2022 CHOL/HDL 5.22 mg/dL Normal [facility] Comment on above: Performed By: #### L [id number] ####[facility] ([facility])[address] [place] [address] Cholesterol [Mass/Vol] 256 mg/dL High 120-200 [facility] Comment on above: Performed By: #### L [id number] ####[facility] ([facility])[address] [place] [address] Magnesium [Mass/Vol] 373 mg/dL High 40-149 [facility] Comment on above: Result Comment: TRIG LYCERIDE REFERENCE RANGE:20 YEARS AND OLDER CARDIOVASCULAR RISKLESS THAN 150 mg/dL LOW [id number] TO 199 mg/dL BORDERLINE TRAN869 mg/dL AND GREATER HIGH RISK Performed By: #### L [id number] ####[facility] ([facility])[address] [place] [address] Magnesium [Mass/Vol] 132 mg/dL Normal 0-160 [facility] Comment on above: Performed By: #### L [id number] ####[facility] ([facility])[address] [place] [address] Magnesium [Mass/Vol] 49 mg/dL Normal 23-92 [facility] Comment on above: Performed By: #### L [id number] ####[facility] ([facility])[address] [place] [address] NON HDL CHOL. (LDL+VLDL) 207 Normal [facility] Comment on above: Performed By: #### L [id number] ####[facility] ([facility])[address] [place] [address] TOTAL VLDL-C 75 mg/dL High 0-40 [facility] Comment on above: Performed By: #### L [id number] ####[facility] ([facility])[address] [place] [address] Labon 10-08-2022 Lab Normal [facility] MAGNESIUMon 10-08-2022 Magnesium [Mass/Vol] 1.7 mg/dL Low 1.9-2.7 [facility] Comment on above: Performed By: #### L [id number] ####[facility] ([facility])[address] [place] [address] [facility] PROSPERAon 10-08-2022 PROSPERA RESULT Results to be mailed directly to physician's office by reference lab. Normal [facility] Comment on above: Performed By: #### L [id number] ####[facility], PHOSPHORUSon 10-08-2022 Magnesium [Mass/Vol] 4.5 mg/dL Normal 2.5-5.0 [facility] Comment on above: Performed By: #### L [id number] ####[facility] ([facility])[address] [place] [address] SINGLE ANTIGEN CLASS Ion AB SCREEN COMMENTS No Class I donor spe cific antibody identified Normal [facility] Comment on above: Performed By: #### L [id number] ####[facility] TISSUE TYPING (HISTOTRAC)[address] [place] [address] [place] CLASS I TESTED DATE Normal [facility] Comment on above: Performed By: #### L [id number] ####[facility] TISSUE TYPING (HISTOTRAC)[address] [place] [address] [facility] SINGLE ANTIGEN CLASS 1 TEST METHOD Class I Single Antigen Normal [facility] Comment on above: Performed By: #### L [id number] ####[facility] TISSUE TYPING (HISTOTRAC)[address] [place] [address] [facility] SINGLE ANTIGEN CLASS IIon AB SCREEN COMMENTS No Class II donor specific antibody identified [facility] Comment on above: Performed By: #### L [id number] ####[facility] TISSUE TYPING (HISTOTRAC)[address] [place] [address] [place] CLASS II TESTED DATE [facility] Comment on above: Performed By: #### L [id number] ####[facility] TISSUE TYPING (HISTOTRAC)[address] [place] [address] [place] SIGNED BY Signed by Sree escamilla [facility] PARKER(ASCP), Refinery Operator [employer] Plant Transplant Immunology [facility] Comment on above: Performed By: #### L [id number] ####[facility] TISSUE TYPING (HISTOTRAC)[address] [place] [address] [place] Result Comment: Clas s I Antigen Microbeads Performed By: #### L [id number] ####[facility] TISSUE TYPING (HISTOTRAC)[address] [place] [address] [place] SINGLE ANTIGEN CLASS 2 TEST METHOD Class II Single Antigen Normal [facility] Comment on above: Result Comment: Clas s II Antigen Microbeads Performed By: #### L [id number] ####[facility] TISSUE TYPING (HISTOTRAC)[address] [place] [address] [place] TACROLIMUS LEVELon 3 Tacrolimus (Bld) [Mass/Vol] 5.6 ng/mL Normal 5.0-20.0 [facility] Comment on above: Result Comment: The [employer] Tacrolimus assay is a delayed one-step immunoassay for the quantitative determination of tacrolimus in human whole blood using the chemiluminescent microparticle immunoassay (CMIA) technology with flexible assay protocols, referred to as Chemiflex. Performed By: #### L [id number] ####[facility] ([facility])[address] [place] [address] URIC ACIDon 10-08-2022 Magnesium [Mass/Vol] 3.9 mg/dL Normal 2.3-6.6 [facility] Comment on above: Performed By: #### L [id number] ####[facility] ([facility])[address] [place] [address] URINE CULTURE, ROUTINEon Bacteria identified Cx Nom (U) <10,000 CFU/ML No Significant Growth Normal [facility] Comment on above: Performed By: #### L [id number] ####[facility] ([facility])[address] [place] [address] 36on 10-07-2022 36 Normal [facility] PTH INTACTon 07-30-2022 PTH, Intact 107 pg/mL Critically high 15-65 [facility] Comment on above: Performed By: #### M G, URIC, RENAL #### [facility] [address] [address] [address] Hari Palmer FERRITINon 07-29-2022 Ferritin [Mass/Vol] 194.0 ng/mL Critically high 6.2-137.0 [facility] Comment on above: Performed By: #### M G, URIC, RENAL #### [facility] [address] [address] [address] Hari Palmer HEMOGRAM AND PLATELon 2021 Hematocrit (Bld) [Volume fraction] 32.8 % Critically low 36.0-48.0 [facility] Comment on above: Performed By: #### M G, URIC, RENAL #### [facility] [address] [place] [address] Dr. Hari Palmer Hemoglobin (Bld) [Mass/Vol] 10.8 g/dL Critically low 12.0-16.0 [facility] Comment on above: Performed By: #### M G, URIC, RENAL #### [facility] [address] [place] [address] Dr. Hari Palmer MCH (RBC) [Entitic mass] 31.7 pg Normal 26.7-34.0 [facility] Comment on above: Performed By: #### M G, URIC, RENAL #### [facility] [address] [place] [address] Dr. Hari Palmer MCHC (RBC) [Mass/Vol] 32.9 g/dL Normal 29.9-35.2 [facility] Comment on above: Performed By: #### M G, URIC, RENAL #### [facility] [address] [place] [address] Dr. Hari Palmer MCV (RBC) [Entitic vol] 96.2 fL Normal 81.0-99.0 [facility] Comment on above: Performed By: #### M G, URIC, RENAL #### [facility] [address] [place] [address] Dr. Hari Palmer PLT 297 103/ul Normal 150-450 [facility] Comment on above: Performed By: #### M G, URIC, RENAL #### [facility] [address] [place] [address] Dr. Hari Palmer RBC 3.41 106/ul Critically low 4.20-5.40 [facility] Comment on above: Performed By: #### M G, URIC, RENAL #### [facility] [address] [place] [address] Dr. Hari Palmer WBC 7.1 103/ul Normal 4.0-11.0 [facility] Comment on above: Performed By: #### M G, URIC, RENAL #### [facility] [address] [place] [address] Dr. Hari Palmer IRON AND TIBCon 07-29-2022 % SATURATION 19.0 % Normal [facility] Comment on above: Performed By: #### M Edy, URIC, RENAL #### [facility] [address] [address] [address] Hari Palmer Iron [Mass/Vol] 48.0 ug/dL Critically low 50.0-170.0 [facility] Comment on above: Performed By: #### M Edy, URIC, RENAL #### [facility] [address] [address] [address] Hari Palmer TIBC DIRECT 252.0 ug/dL Normal 250.0-450.0 [facility] Comment on above: Performed By: #### M Edy URIC, RENAL #### [facility] [address] [place] [address] Dr. Hari Palmer MAGNESIUMon 07-29-2022 Magnesium [Mass/Vol] 2.0 mg/dL Normal 1.8-2.4 [facility] Comment on above: Performed By: #### M Edy URIC, RENAL #### [facility] [address] [place] [address] Dr. Hari Palmer RENAL FUNCTION PANELon 07-29 Albumin [Mass/Vol] 3.6 g/dL Normal 3.4-5.0 [facility] Comment on above: Performed By: #### M Edy, URIC, RENAL #### [facility] [address] [place] [address] Dr. Hari Palmer Calcium [Mass/Vol] 8.7 mg/dL Normal 8.5-10.1 [facility] Comment on above: Performed By: #### M Edy, URIC, RENAL #### [facility] [address] [place] [address] Dr. Hari Palmer Chloride [Moles/Vol] 104 mmol/L Normal 98-107 [facility] Comment on above: Performed By: #### M Edy, URIC, RENAL #### [facility] [address] [place] [address] Dr. Hari Palmer CO2 [Moles/Vol] 21.8 mmol/L Normal 21.0-32.0 [facility] Comment on above: Performed By: #### M G, URIC, RENAL #### [facility] [address] [address] [address] Hari Palmer Creatinine [Mass/Vol] 3.83 mg/dL Critically high 0.55-1.02 [facility] Comment on above: Performed By: #### M G, URIC, RENAL #### [facility] [address] [place] [address] Dr. Hari Palmer EGFR-AF AUSTRALIAN 15 mL/min/1.73m2 Critically low >=60 [facility] Comment on above: Performed By: #### M G, URIC, RENAL #### [facility] [address] [place] [address] Dr. Hair Palmer EGFR-NON AF AUSTRALIAN 13 mL/min/1.73m2 Critically low >=60 [facility] Comment on above: Performed By: #### M G, URIC, RENAL #### [facility] [address] [place] [address] Dr. Hari Palmer Glucose [Mass/Vol] 108 mg/dL Critically high 74-106 [facility] Comment on above: Performed By: #### M G, URIC, RENAL #### [facility] [address] [place] [address] Dr. Hari Palmer Phosphate [Mass/Vol] 5.4 mg/dL Critically high 2.6-4.7 [facility] Comment on above: Performed By: #### M G, URIC, RENAL #### [facility] [address] [place] [address] Dr. Hari Palmer Potassium [Moles/Vol] 3.9 mmol/L Normal 3.5-5.1 [facility] Comment on above: Performed By: #### M G, URIC, RENAL #### [facility] [address] [place] [address] Dr. Hari Palmer Sodium [Moles/Vol] 137 mmol/L Normal 136-145 [facility] Comment on above: Performed By: #### M G, URIC, RENAL #### [facility] [address] [place] [address] Dr. Hari Palmer Urea nitrogen [Mass/Vol] 47.0 mg/dL Critically high 7.0-18.0 [facility] Comment on above: Performed By: #### M G, URIC, RENAL #### [facility] [address] [address] [address] Hari Palmer URIC ACID SERUMon 07-29-2022 Urate [Mass/Vol] 6.3 mg/dL Critically high 2.6-6.0 [facility] Comment on above: Performed By: #### M G, URIC, RENAL #### [facility] [address] [address] [address] Hari Palmer URINE T PROTEIN CREAT RATIOo n 07-29-2022 Protein (U) [Mass/Vol] 29.7 mg/dL Critically high <=12.0 [facility] Comment on above: Performed By: #### M G, URIC, RENAL #### [facility] [address] [place] [address] Dr. Hari Palmer UR PROT CREAT RAT 0.56 Normal [facility] Comment on above: Performed By: #### M G, URIC, RENAL #### [facility] [address] [address] [address] Hari Palmer URINE CREAT 53.35 mg/dL Normal 20.00-300.00 [facility] Comment on above: Performed By: #### M G, URIC, RENAL #### [facility] [address] [address] [address] Hari Palmer VITAMIN D 25 OHon 07-29-2022 VIT D 25-OH 38.8 ng/mL Normal [facility] Comment on above: Performed By: #### M G, URIC, RENAL #### [facility] [address] [place] [address] Dr. Hari Palmer VIT D RANGES SEE BELOW Normal [facility] Comment on above: Result Comment: <20 ng/mL Vit D deficient 20 - <30 ng/mL Vit D insufficient 30 - 100 ng/mL Vit D sufficient >100 ng/mL Potential Toxicity Performed By: #### M G, URIC, RENAL #### [facility] [address] [place] [address] Dr. Hari Palmer Albumin [Mass/volume] in Ser um or PlasmaOrdered By: Stanley Forman on 06-20-2022 Albumin [Mass/Vol] 3.9 g/dL 3.2-5.5 [facility] Basophils Auto (Bld) [#/Vol] Ordered By: Stanley Forman on 06-20-2022 Basophils (Bld) [#/Vol] 0.1 10*3/uL 0.0-0.2 [facility] Basophils/100 WBC Auto (Bld) Ordered By: Stanley Forman on 06-20-2022 Basophils/100 WBC (Bld) 0.7 % . [facility] Blood hemoglobin measurement (mass/volume)Ordered By: Stanley Forman on 06-20-2022 Hemoglobin (Bld) [Mass/Vol] 10.8 g/dL 11.8-15.4 [facility] Blood leukocytes automated c ount (number/volume)Ordered By: Stanley Forman on 06-20-2022 WBC (Bld) [#/Vol] 11.8 10*3/uL 4.5-11.0 [facility] C reactive protein [Mass/vol ume] in Serum or PlasmaOrdered By: Stanley Forman on 06-20-2022 CRP [Mass/Vol] 5.2 mg/dL 0.0-1.0 [facility] Creatinine and Glomerular fi ltration rate.predicted panel (S/P/Bld)Ordered By: Stanley Forman on 06-20-2022 Creatinine [Mass/Vol] 4.49 mg/dL 0.44-1.03 [facility] Eosinophils Auto (Bld) [#/Vo l]Ordered By: Stanley Forman on 06-20-2022 Eosinophils (Bld) [#/Vol] 0.4 10*3/uL 0.0-0.45 [facility] Eosinophils/100 WBC Auto (Bl d)Ordered By: Stanley Forman on 06-20-2022 Eosinophils/100 WBC (Bld) 3.2 % . [facility] Erythrocyte distribution wid th Auto (RBC) [Ratio]Ordered By: Stanley Forman on 06-20-2022 Erythrocyte distribution width (RBC) [Ratio] 14.0 % 11.9-15.3 [facility] Erythrocyte sedimentation ra te by Photometric methodOrdered By: Stanley Forman on 06-20-2022 ESR Photometric method (Bld) [Velocity] 67 mm/hr 0-19 [facility] Estimated glomerular filtrat ion rate (GFR) non- AmericanOrdered By: Stanley Forman on 06-20-2022 GFR/1.73 sq M.predicted among non-blacks MDRD (S/P/Bld) [Vol rate/Area] 11 mL/Min [facility] Globulin Calc (S) [Mass/Vol] Ordered By: Stanley Forman on 06-20-2022 Globulin (S) [Mass/Vol] 3.5 g/dL [facility] Hematocrit Auto (Bld) [Volum e fraction]Ordered By: Stanley Forman on 06-20-2022 Hematocrit (Bld) [Volume fraction] 33.1 % 34.0-46.4 [facility] - Hematology and Cell countsOrdered By: Stanley Forman on 06-20-2022 Nucleated RBC/100 WBC (Bld) [Ratio] 0.0 % 0-0.5 [facility] Lymphocytes Auto (Bld) [#/Vo l]Ordered By: Stanley Forman on 06-20-2022 Lymphocytes (Bld) [#/Vol] 1.5 10*3/uL 1.00-4.8 [facility] Lymphocytes/100 WBC Auto (Bl d)Ordered By: Stanley Forman on 06-20-2022 Lymphocytes/100 WBC (Bld) 12.3 % . [facility] MCH Auto (RBC) [Entitic mass ]Ordered By: Stanley Forman on 06-20-2022 MCH (RBC) [Entitic mass] 31.1 pg 24.7-34.3 [facility] MCHC Auto (RBC) [Mass/Vol]Or dered By: Stanley Forman on 06-20-2022 MCHC (RBC) [Mass/Vol] 32.5 g/dL 32.0-35.0 [facility] MCV Auto (RBC) [Entitic vol] Ordered By: Stanley Forman on 06-20-2022 MCV (RBC) [Entitic vol] 95.6 fL 80-100 [facility] Monocytes Auto (Bld) [#/Vol] Ordered By: Stanley Forman on 06-20-2022 Monocytes (Bld) [#/Vol] 0.5 10*3/uL 0.0-0.8 [facility] Monocytes/100 WBC Auto (Bld) Ordered By: Stanley Forman on 06-20-2022 Monocytes/100 WBC (Bld) 4.1 % . [facility] Neutrophils Auto (Bld) [#/Vo l]Ordered By: Stanley Forman on 06-20-2022 Neutrophils (Bld) [#/Vol] 9.4 10*3/uL 1.8-7.7 [facility] Neutrophils/100 WBC Auto (Bl d)Ordered By: Stanley Forman on 06-20-2022 Neutrophils/100 WBC (Bld) 79.7 % . [facility] No Panel InformationOrdered By: Stanley Forman on 06-20-2022 Estimated GFR () 13 mL/Min [facility] Comment on above: GFR estimated refere nce range: According to KDOQI guidelines, <60 ml/min/1.73m2 is sufficient to diagnose a patient with chronic kidney disease. Pharmacy Creatinine Clearance (Chem 16.48 [facility] Platelet mean volume Auto (B ld) [Entitic vol]Ordered By: Stanley Forman on 06-20-2022 Platelet mean volume (Bld) [Entitic vol] 7.0 fL 6.3-10.7 [facility] Platelets Auto (Bld) [#/Vol] Ordered By: Stanley Forman on 06-20-2022 Platelets (Bld) [#/Vol] 287 10*3/uL 150-450 [facility] Protein [Mass/volume] in Ser um or PlasmaOrdered By: Stanley Forman on 06-20-2022 Protein [Mass/Vol] 7.4 g/dL 6.1-7.9 [facility] RBC Auto (Bld) [#/Vol]Ordere d By: Stanley Forman on 06-20-2022 RBC (Bld) [#/Vol] 3.46 10*6/uL 3.60-5.00 [facility] Serum or plasma alanine cesar otransferase measurement without P-5'-P (enzymatic activiOrdered By: Stanley Forman on 06-20-2022 ALT No additional P-5'-P [Catalytic activity/Vol] 11 U/L 10-60 [facility] Serum or plasma albumin/glob ulin mass ratioOrdered By: Stanley Forman on 06-20-2022 Albumin/Globulin [Mass ratio] 1.1 {ratio} [facility] Serum or plasma alkaline gina sphatase measurement (enzymatic activity/volume)Ordered By: Stanley Forman on 06-20-2022 ALP [Catalytic activity/Vol] 82 U/L 32-92 [facility] Serum or plasma anion gap de terminationOrdered By: Stanley Forman on 06-20-2022 Anion gap [Moles/Vol] 16.2 mmol/L 6.0-15.0 [facility] Serum or plasma aspartate am inotransferase measurement (enzymatic activity/volume)Ordered By: Stanley Forman on 06-20-2022 AST [Catalytic activity/Vol] 15 U/L 10-42 [facility] Serum or plasma calcium ge urement (mass/volume)Ordered By: Stanley Forman on 06-20-2022 Calcium [Mass/Vol] 9.3 mg/dL 8.2-10.2 [facility] Serum or plasma chloride lee surement (moles/volume)Ordered By: Stanley Forman on 06-20-2022 Chloride [Moles/Vol] 103 mmol/L 95-114 [facility] Serum or plasma glucose ge urement (mass/volume)Ordered By: Stanley Forman on 06-20-2022 Glucose [Mass/Vol] 75 mg/dL 70-100 [facility] Comment on above: ADA recommended refe rence rangeRandom Glucose Reference Range is dependent on time and content of last meal. Glucose of more than 200 mg/dL in a nonstressed, ambulatory subject supports the diagnosis of Diabetes Mellitus. Serum or plasma potassium me asurement (moles/volume)Ordered By: Stanley Forman on 06-20-2022 Potassium [Moles/Vol] 4.3 mmol/L 3.5-5.1 [facility] Serum or plasma sodium measu rement (moles/volume)Ordered By: Stanley Forman on 06-20-2022 Sodium [Moles/Vol] 135 mmol/L 136-146 [facility] Serum or plasma total biliru bin measurement (mass/volume)Ordered By: Stanley Forman on 06-20-2022 Bilirubin [Mass/Vol] 0.3 mg/dL 0.3-1.2 [facility] Serum or plasma total carbon dioxide measurement (moles/volume)Ordered By: Stanley Forman on 06-20-2022 CO2 [Moles/Vol] 20.1 mmol/L 22.0-30.0 [facility] Serum or plasma urea nitroge n measurement (mass/volume)Ordered By: Stanley Forman on 06-20-2022 Urea nitrogen [Mass/Vol] 42 mg/dL 9- [facility] COVID-19 Positive/NegativeOr dered By: Jesus Parham on 06-14-2022 SARS-CoV-2 (COVID-19) N gene AMBERLY+probe Ql (Resp) Negative Negative [facility] Comment on above: Testing for SARS-CoV -2 by RT-PCR This test was developed and its performance characteristics determined by [employer] [facility] [employer] and validated at the [facility]. This test has not been FDA cleared or approved. This test has been authorized by FDA under an Emergency Use Authorization (EUA). This test has been validated in accordance with the FDA's Guidance Document (Policy for Diagnostics Testing in Laboratories Certified to Perform High Complexity Testing under CLIA prior to Emergency Use Authorization for Coronavirus Disease-2019 during the Public Health Emergency) issued on January 06, 2020. This test is only authorized for the duration of time the declaration that circumstances exist justifying the authorization of the emergency use of in vitro diagnostic tests for detection of SARS-CoV-2 virus and/or diagnosis of COVID-19 infection under section 564(b)(1) of the Act, 21 U.S.C. 360bbb-3(b)(1), unless the authorization is terminated or revoked sooner. Testing for SARS-CoV -2 by RT-PCRThis test was developed and its performance characteristics determined by [facility] [employer] [facility] and validated at the [facility]. This test has not been FDA cleared or approved. This test has been authorized by FDA under an Emergency Use Authorization (EUA). This test has been validated in accordance with the FDA's Guidance Document (Policy for Diagnostics Testing in Laboratories Certified to Perform High Complexity Testing under CLIA prior to Emergency Use Authorization for Coronavirus Disease-2019 during the Public Health Emergency) issued on January 06, 2020. This test is only authorized for the duration of time the declaration that circumstances exist justifying the authorization of the emergency use of in vitro diagnostic tests for detection of SARS-CoV-2 virus and/or diagnosis of COVID-19 infection under section 564(b)(1) of the Act, 21 U.S.C. 360bbb-3(b)(1), unless the authorization is terminated or revoked sooner. CA 125on 06-08-2022 Cancer Antigen (CA) 125 10.8 U/mL Normal 0.0-38.1 [facility] Comment on above: Result Comment: [employer] [employer] Electrochemiluminescence Immunoassay (ECLIA) . Values obtained with different assay methods or kits cannot be used interchangeably. Results cannot be interpreted as absolute evidence of the presence or absence of malignant disease. Performed By: #### M G, URIC, RENAL #### [facility] [address] [address] [address] Hari Palmer CEAon 06-08-2022 CEA 0.9 ng/mL Normal 0.0-4.7 [facility] Comment on above: Result Comment: Nons mokers <3.9 Smokers <5.6 . [employer] Electrochemiluminescence Immunoassay (ECLIA) . Values obtained with different assay methods or kits cannot be used interchangeably. Results cannot be interpreted as absolute evidence of the presence or absence of malignant disease. Performed By: #### C EA. #### [facility] [address] [place], [place] [address] Dr. Hari Palmer Basophils Auto (Bld) [#/Vol] Ordered By: Jesus Parham on 06-05-2022 Basophils (Bld) [#/Vol] 0.0 10*3/uL 0.0-0.2 [facility] Basophils/100 WBC Auto (Bld) Ordered By: Jesus Parham on 06-05-2022 Basophils/100 WBC (Bld) 0.3 % . [facility] Blood hemoglobin measurement (mass/volume)Ordered By: Jesus Parham on 06-05-2022 Hemoglobin (Bld) [Mass/Vol] 12.0 g/dL 11.8-15.4 [facility] Blood leukocytes automated c ount (number/volume)Ordered By: Jesus Parham on 06-05-2022 WBC (Bld) [#/Vol] 8.5 10*3/uL 4.5-11.0 [facility] Creatinine and Glomerular fi ltration rate.predicted panel (S/P/Bld)Ordered By: Jesus Parham on 06-05-2022 Creatinine [Mass/Vol] 3.52 mg/dL 0.44-1.03 [facility] Eosinophils Auto (Bld) [#/Vo l]Ordered By: Jesus Parham on 06-05-2022 Eosinophils (Bld) [#/Vol] 0.2 10*3/uL 0.0-0.45 [facility] Eosinophils/100 WBC Auto (Bl d)Ordered By: Jesus Parham on 06-05-2022 Eosinophils/100 WBC (Bld) 2.7 % . [facility] Erythrocyte distribution wid th Auto (RBC) [Ratio]Ordered By: Jesus Parham on 06-05-2022 Erythrocyte distribution width (RBC) [Ratio] 14.2 % 11.9-15.3 [facility] Estimated glomerular filtrat ion rate (GFR) non- AmericanOrdered By: Jesus Parham on 06-05-2022 GFR/1.73 sq M.predicted among non-blacks MDRD (S/P/Bld) [Vol rate/Area] 14 mL/Min [facility] Hematocrit Auto (Bld) [Volum e fraction]Ordered By: Jesus Parham on 06-05-2022 Hematocrit (Bld) [Volume fraction] 35.8 % 34.0-46.4 [facility] - Hematology and Cell countsOrdered By: Jesus Parham on 06-05-2022 Nucleated RBC/100 WBC (Bld) [Ratio] 0.1 % 0-0.5 [facility] Lymphocytes Auto (Bld) [#/Vo l]Ordered By: Jesus Parham on 06-05-2022 Lymphocytes (Bld) [#/Vol] 1.6 10*3/uL 1.00-4.8 [facility] Lymphocytes/100 WBC Auto (Bl d)Ordered By: Jesus Parham on 06-05-2022 Lymphocytes/100 WBC (Bld) 19.3 % . [facility] MCH Auto (RBC) [Entitic mass ]Ordered By: Jesus Parham on 06-05-2022 MCH (RBC) [Entitic mass] 31.5 pg 24.7-34.3 [facility] MCHC Auto (RBC) [Mass/Vol]Or dered By: Jesus Parham on 06-05-2022 MCHC (RBC) [Mass/Vol] 33.3 g/dL 32.0-35.0 [facility] MCV Auto (RBC) [Entitic vol] Ordered By: Jesus Parham on 06-05-2022 MCV (RBC) [Entitic vol] 94.4 fL 80-100 [facility] Monocytes Auto (Bld) [#/Vol] Ordered By: Jesus Parham on 06-05-2022 Monocytes (Bld) [#/Vol] 0.3 10*3/uL 0.0-0.8 [facility] Monocytes/100 WBC Auto (Bld) Ordered By: Jesus Parham on 06-05-2022 Monocytes/100 WBC (Bld) 3.9 % . [facility] Neutrophils Auto (Bld) [#/Vo l]Ordered By: Jesus Parham on 06-05-2022 Neutrophils (Bld) [#/Vol] 6.2 10*3/uL 1.8-7.7 [facility] Neutrophils/100 WBC Auto (Bl d)Ordered By: Jesus Parham on 06-05-2022 Neutrophils/100 WBC (Bld) 73.8 % . [facility] No Panel InformationOrdered By: Jesus Parham on 06-05-2022 Estimated GFR () 17 mL/Min [facility] Comment on above: GFR estimated refere nce range: According to KDOQI guidelines, <60 ml/min/1.73m2 is sufficient to diagnose a patient with chronic kidney disease. Pharmacy Creatinine Clearance (Chem N/A [facility] Platelet mean volume Auto (B ld) [Entitic vol]Ordered By: Jesus Parham on 06-05-2022 Platelet mean volume (Bld) [Entitic vol] 7.3 fL 6.3-10.7 [facility] Platelets Auto (Bld) [#/Vol] Ordered By: Jesus Parham on 06-05-2022 Platelets (Bld) [#/Vol] 312 10*3/uL 150-450 [facility] RBC Auto (Bld) [#/Vol]Ordere d By: eJsus Parham on 06-05-2022 RBC (Bld) [#/Vol] 3.80 10*6/uL 3.60-5.00 [facility] Serum or plasma anion gap de terminationOrdered By: Jesus Parham on 06-05-2022 Anion gap [Moles/Vol] 15.1 mmol/L 6.0-15.0 [facility] Serum or plasma calcium ge urement (mass/volume)Ordered By: Jesus Parham on 06-05-2022 Calcium [Mass/Vol] 9.5 mg/dL 8.2-10.2 [facility] Serum or plasma chloride lee surement (moles/volume)Ordered By: Jesus Parham on 06-05-2022 Chloride [Moles/Vol] 106 mmol/L 95-114 [facility] Serum or plasma glucose ge urement (mass/volume)Ordered By: Jesus Parham on 06-05-2022 Glucose [Mass/Vol] 91 mg/dL 70-100 [facility] Comment on above: ADA recommended refe rence range Random Glucose Reference Range is dependent on time and content of last meal. Glucose of more than 200 mg/dL in a nonstressed, ambulatory subject supports the diagnosis of Diabetes Mellitus. ADA recommended refe rence rangeRandom Glucose Reference Range is dependent on time and content of last meal. Glucose of more than 200 mg/dL in a nonstressed, ambulatory subject supports the diagnosis of Diabetes Mellitus. Serum or plasma potassium me asurement (moles/volume)Ordered By: Jesus Parham on 06-05-2022 Potassium [Moles/Vol] 4.4 mmol/L 3.5-5.1 [facility] Serum or plasma sodium measu rement (moles/volume)Ordered By: Jesus Parham on 06-05-2022 Sodium [Moles/Vol] 137 mmol/L 136-146 [facility] Serum or plasma total carbon dioxide measurement (moles/volume)Ordered By: Jesus Parham on 06-05-2022 CO2 [Moles/Vol] 20.3 mmol/L 22.0-30.0 [facility] Serum or plasma urea nitroge n measurement (mass/volume)Ordered By: Jesus Parham on 06-05-2022 Urea nitrogen [Mass/Vol] 38 mg/dL 9- [facility] PTH INTACTon 04-29-2022 PTH, Intact 191 pg/mL Critically high 15-65 [facility] Comment on above: Performed By: #### M Edy URIC, RENAL #### [facility] [address] [place], [place] [address] Dr. Hari Palmer VIT D 25-OH LABCORPon 2021 Vitamin D, 25-Hydroxy 33.6 ng/mL Normal 30.0-100.0 [facility] Comment on above: Result Comment: Ning min D deficiency has been defined by the [place] of [employer] and an Endocrine Society practice guideline as a level of serum 25-OH vitamin D less than 20 ng/mL (1,2). The Endocrine Society went on to further define vitamin D insufficiency as a level between 21 and 29 ng/mL (2). 1. IOM ([place] [employer]). 2010. Dietary reference intakes for calcium and D. [place]: The National Academies Press. 2. Chantel MF, Landen [place], Eliseo CARDOZA, et al. Evaluation, treatment, and prevention of vitamin D deficiency: an Endocrine Society clinical practice guideline. JCEM. 2010; 96(7):1911-30. Performed By: #### M G URIC, RENAL #### [facility] [address] [place], [place] [address] Dr. Hari Palmer ABO AND RH TYPEon 04-27-2022 ABO and Rh group Nom (Bld) ABO Rh Typing O Rh Positive Normal [facility] Comment on above: Performed By: #### M G, URIC, RENAL #### [facility] [address] [place] [address] Dr. Hari Palmer FERRITINon 04-27-2022 Ferritin [Mass/Vol] 273.0 ng/mL Critically high 6.2-137.0 [facility] Comment on above: Performed By: #### M G, URIC, RENAL #### [facility] [address] [place] [address] Dr. Hari Palmer HEMOGRAM AND PLATELon 2021 Hematocrit (Bld) [Volume fraction] 33.9 % Critically low 36.0-48.0 [facility] Comment on above: Performed By: #### M G, URIC, RENAL #### [facility] [address] [place] [address] Dr. Hari Palmer Hemoglobin (Bld) [Mass/Vol] 11.4 g/dL Critically low 12.0-16.0 [facility] Comment on above: Performed By: #### M G, URIC, RENAL #### [facility] [address] [place] [address] Dr. Hari Palmer MCH (RBC) [Entitic mass] 31.7 pg Normal 26.7-34.0 [facility] Comment on above: Performed By: #### M G, URIC, RENAL #### [facility] [address] [place] [address] Dr. Hari Palmer MCHC (RBC) [Mass/Vol] 33.6 g/dL Normal 29.9-35.2 [facility] Comment on above: Performed By: #### M G, URIC, RENAL #### [facility] [address] [place] [address] Dr. Hari Palmer MCV (RBC) [Entitic vol] 94.2 fL Normal 81.0-99.0 [facility] Comment on above: Performed By: #### M G, URIC, RENAL #### [facility] [address] [place] [address] Dr. Hari Palmer PLT 333 103/ul Normal 150-450 [facility] Comment on above: Performed By: #### M G, URIC, RENAL #### [facility] [address] [address] [address] Hari Palmer RBC 3.60 106/ul Critically low 4.20-5.40 [facility] Comment on above: Performed By: #### M G, URIC, RENAL #### [facility] [address] [address] [address] Hari Palmer WBC 9.7 103/ul Normal 4.0-11.0 [facility] Comment on above: Performed By: #### M G, URIC, RENAL #### [facility] [address] [place] [address] Dr. Hari Palmer IRON AND TIBCon 04-27-2022 % SATURATION 20.1 % Normal [facility] Comment on above: Performed By: #### M G, URIC, RENAL #### [facility] [address] [place] [address] Dr. Hari Palmer Iron [Mass/Vol] 57.0 ug/dL Normal 50.0-170.0 [facility] Comment on above: Performed By: #### M G, URIC, RENAL #### [facility] [address] [place] [address] Dr. Hari Palmer TIBC DIRECT 283.0 ug/dL Normal 250.0-450.0 [facility] Comment on above: Performed By: #### M G, URIC, RENAL #### [facility] [address] [place] [address] Dr. Hari Palmer MAGNESIUMon 04-27-2022 Magnesium [Mass/Vol] 2.1 mg/dL Normal 1.8-2.4 [facility] Comment on above: Performed By: #### R ENAL, URIC, MG #### [facility] [address] [place] [address] Dr. Hari Palmer RENAL FUNCTION PANELon 04-27 Albumin [Mass/Vol] 3.6 g/dL Normal 3.4-5.0 [facility] Comment on above: Performed By: #### R ENAL, URIC, MG #### [facility] [address] [place] [address] Dr. Hari Palmer Calcium [Mass/Vol] 9.0 mg/dL Normal 8.5-10.1 [facility] Comment on above: Performed By: #### R ENAL, URIC, MG #### [facility] [address] [address] [address] Hari Palmer Chloride [Moles/Vol] 104 mmol/L Normal 98-107 [facility] Comment on above: Performed By: #### R ENAL, URIC, MG #### [facility] [address] [address] [address] Hari Palmer CO2 [Moles/Vol] 23.0 mmol/L Normal 21.0-32.0 [facility] Comment on above: Performed By: #### R ENAL, URIC, MG #### [facility] [address] [place] [address] Dr. Hari Palmer Creatinine [Mass/Vol] 3.38 mg/dL Critically high 0.55-1.02 [facility] Comment on above: Performed By: #### R ENAL, URIC, MG #### [facility] [address] [place] [address] Dr. Hari Palmer EGFR-AF AUSTRALIAN 18 mL/min/1.73m2 Critically low >=60 [facility] Comment on above: Performed By: #### R ENAL, URIC, MG #### [facility] [address] [place] [address] Dr. Hari Palmer EGFR-NON AF AUSTRALIAN 15 mL/min/1.73m2 Critically low >=60 [facility] Comment on above: Performed By: #### R ENAL, URIC, MG #### [facility] [address] [place] [address] Dr. Hari Palmer Glucose [Mass/Vol] 113 mg/dL Critically high 74-106 [facility] Comment on above: Performed By: #### R ENAL, URIC, MG #### [facility] [address] [place] [address] Dr. Hari Palmer Phosphate [Mass/Vol] 4.4 mg/dL Normal 2.6-4.7 [facility] Comment on above: Performed By: #### R ENAL, URIC, MG #### [facility] [address] [place] [address] Dr. Hari Palmer Potassium [Moles/Vol] 4.0 mmol/L Normal 3.5-5.1 [facility] Comment on above: Performed By: #### R ENAL, URIC, MG #### [facility] [address] [place] [address] Dr. Hari Palmer Sodium [Moles/Vol] 137 mmol/L Normal 136-145 [facility] Comment on above: Performed By: #### R ENAL, URIC, MG #### [facility] [address] [place] [address] Dr. Hari Palmer Urea nitrogen [Mass/Vol] 44.0 mg/dL Critically high 7.0-18.0 [facility] Comment on above: Performed By: #### R ENAL, URIC, MG #### [facility] [address] [place] [address] Dr. Hari Palmer URIC ACID SERUMon 04-27-2022 Urate [Mass/Vol] 6.6 mg/dL Critically high 2.6-6.0 [facility] Comment on above: Performed By: #### R ENAL, URIC, MG #### [facility] [address] [place] [address] Dr. Hari Palmer URINE T PROTEIN CREAT RATIOo n 04-27-2022 Protein (U) [Mass/Vol] 31.4 mg/dL Critically high <=12.0 [facility] Comment on above: Performed By: #### M G, URIC, RENAL #### [facility] [address] [place] [address] Dr. Hari Palmer UR PROT CREAT RAT 0.55 Normal [facility] Comment on above: Performed By: #### M G, URIC, RENAL #### [facility] [address] [place] [address] Dr. Hari Palmer URINE CREAT 57.50 mg/dL Normal 20.00-300.00 [facility] Comment on above: Performed By: #### M G, URIC, RENAL #### [facility] [address] [address] [address] Hari Palmer ECHOCARDIO M/2D COMPLETEon 0 03-29-2022 ECHOCARDIO M/2D COMPLETE Patient: MANDEEP PURI Exam Date: 03/29/2022 : 1975 Gender:F Ordering : HAIDER FRENCH M.D. Admission #: [id number] Family : Order #: [id number] CLICK HERE TO VIEW EXAM ECHOCARDIOGRAM REPORT PROCEDURE: CARDIO PULMONARY ECHOCARDIO M/2D COMP INDICATIONS: Pre op COMPARISON: None. DESCRIPTION: COMPLETE ECHOCARDIOGRAM Real-time transthoracic echocardiography with 2D, M-mode, spectral and color flow Doppler performed. QUALITY: Technical quality was good. LEFT VENTRICLE: Normal chamber size. Normal wall thickness. Global left ventricular systolic function is normal. LV EF: Visual estimation of left ventricular ejection fraction is 65% DIASTOLIC: Normal diastolic function. ATRIAL SEPTUM: LEFT ATRIUM: Normal chamber size. RIGHT ATRIUM: Normal chamber size. RIGHT VENTRICLE: Normal chamber size. Normal right ventricular systolic function. TRICUSPID VALVE: Normal mobility and thickness. No stenosis with trivial regurgitation. No evidence of pulmonary hypertension. RVSP 23 mmHg MITRAL VALVE: Normal mobility and thickness. No mitral valve prolapse. No evidence of mitral valve stenosis. There is no mitral annular calcification. No mitral regurgitation. AORTIC VALVE: Normal trileaflet appearance. No visible sclerosis. Normal leaflet mobility. No evidence of aortic valve stenosis. No aortic regurgitation. AORTIC ROOT: Normal diameter and appearance. PULMONIC VALVE: Normal thickness and mobility. Normal with No regurgitation. PERICARDIUM: No evidence of pericardial effusion. IVC: Collapses with inspirations. Normal size. PLEURA: CONCLUSION: 1. Normal ventricular function. 2. No valvular dysfunction. 3. Normal right-sided pressures. 4. No pericardial effusion. Adult Echocardiography Procedure Report Left Ventricle LVEDD (3.7 - 5.6 cm): 4.27 cm LVESD (2.2 - 4.0 cm): 2.47 cm LVIVS thickness (0.6 - 1.2 cm): 1.02 cm LVPW thickness (0.5 - 1.0 cm): 9.84 mm e': 9.43 cm/s E - e': 6.50 LVOT Area (cm2): 4.15 cm2 LVOT Diameter 2.30 cm Left Ventricular Ejection Fraction: 65 % Left Atrium LA Volume Index (2D A2C): 14.90 ml/m2 Left Atrium Systolic Dimension: 3.60 cm Left Atrium Systolic Area(A2C): 12.90 cm2 Left Atrium Systolic Area(A4C): 17.00 cm2 Left Atrium Systolic Volume(A2C): 78548 mm3 Left Atrium Systolic Volume(A4C): 49590 mm3 Mitral Valve MV E to A Ratio: 0.80 Deceleration Rock: 3210 mm/s2 Mitral Valve A-Wave Peak Velocity: 80.90 cm/s Mitral Valve E-Wave Peak Velocity: 61.70 cm/s Right Ventricle RV Internal Diastolic Dimension: 3.30 cm Aorta AO Root Diam: 3.20 cm Aortic Valve AoV Area (Peak Audi): 2.79 cm2 Aortic Valve Cusp Separation: 1.80 cm Peak Velocity(Antegrade Flow): 102.00 cm/s Peak Gradient(Antegrade Flow): 4 mm[Hg] Tricuspid Valve Peak Velocity (Regurgitant Flow): 172.00 cm/s Pulmonic Valve Peak Velocity: 94.10 cm/s Peak Gradient: 4 mm[Hg] Right Atrium Dictated by: Damian Alonzo M.D. on 04/01/2022 at 12:31 Approved by: Damian Alonzo M.D. on 04/01/2022 at 12:33 Normal [facility] COVID-19 SOFIAOrdered By: Mary Beth Jones on 03-28-2022 SARS-CoV+SARS-CoV-2 (COVID-19) Ag IA.rapid Ql (Resp) Negative Negative [facility] Comment on above: This is a duplicate Ada SARS Antigen (GLORIA) result to be used for statistical tracking purpose only. No Panel InformationOrdered By: Shabbir Jones on 03-28-2022 SARS Antigen (LFIA) [facility] BLOOD TYPE AND RHon 02-13-20 ABO INTERPRETATION O Normal [facility] Comment on above: Performed By: #### 3 9917, 22094, 50506, 97613, 03325 #### [facility] [address] [facility] [place] [address], [facility] RH INTERPRETATION Positive Normal [facility] Comment on above: Performed By: #### 3 1397, 23456, 46402, 21476, 31821 #### [facility] [address] [facility]. [address] BNP (B-TYPE NATRIURETIC PEPT JOEL)on 02-12-2022 Natriuretic peptide B (Bld) [Mass/Vol] 10 pg/mL Normal 0-100 [facility] Comment on above: Result Comment: Give n the appropriate clinical setting a BNP result of >100 pg/mL indicates congestive heart failure. Performed By: #### 8 5123, [id number] #### [facility] [address] CBC W/DIFFon 02-12-2022 ABS IMM GRANS 0.2 10*3/uL Normal 0.0-0.2 [facility] Comment on above: Performed By: #### 3 1397, 44233, 83578, 83680, 84713 #### [facility] [address] ABS NEUTROPHILS 7.8 10*3/uL High 1.6-7.6 [facility] Comment on above: Performed By: #### 3 1397, 69856, 98536, 92604, 50210 #### [facility] [address] Basophils (Bld) [#/Vol] 0.1 10*3/uL Normal 0.0-0.2 [facility] Comment on above: Performed By: #### 3 1397, 81401, 54727, 11031, 39095 #### [facility] [address] [place] [address], [facility] Basophils/100 WBC (Bld) 0.6 % Normal 0.0-1.0 [facility] Comment on above: Performed By: #### 3 1397, 15291, 50955, 75526, 27715 #### [facility] [address] [place] [address], [facility] Eosinophils (Bld) [#/Vol] 0.3 10*3/uL Normal 0.0-0.5 [facility] Comment on above: Performed By: #### 3 1397, 74490, 91813, 80321, 21872 #### [facility] [address] [place] [address], [facility] Eosinophils/100 WBC (Bld) 2.5 % Normal 0.0-6.0 [facility] Comment on above: Performed By: #### 3 1397, 62759, 80356, 08946, 36183 #### [facility] [address] Erythrocyte distribution width (RBC) [Ratio] 13.6 % Normal 11.5-15.0 [facility] Comment on above: Performed By: #### 3 1397, 03363, 40692, 84757, 98971 #### [facility] [address] Hematocrit (Bld) [Volume fraction] 34.5 % Low 36.0-45.0 [facility] Comment on above: Performed By: #### 3 1397, 47868, 72889, 52031, 85830 #### [facility] [address] Hemoglobin (Bld) [Mass/Vol] 11.3 g/dL Low 12.0-15.0 [facility] Comment on above: Performed By: #### 3 1397, 77244, 42169, 00594, 86398 #### [facility] [address] [place] [address], [facility] IMMATURE GRANS 1.4 % High 0.0-1.0 [facility] Comment on above: Performed By: #### 3 1397, 47513, 67012, 55989, 59143 #### [facility] [address] [place] [address], [facility] Lymphocytes (Bld) [#/Vol] 2.0 10*3/uL Normal 1.2-4.0 [facility] Comment on above: Performed By: #### 3 1397, 78297, 09119, 34676, 94963 #### [facility] [address] [place] [address], [facility] Lymphocytes/100 WBC (Bld) 18.6 % Low 20.0-45.0 [facility] Comment on above: Performed By: #### 3 1397, 58058, 63619, 93893, 08098 #### [facility] [address] [facility] [place] [address], [facility] MCH (RBC) [Entitic mass] 31.3 pg Normal 27.0-33.0 [facility] Comment on above: Performed By: #### 3 1397, 85877, 32560, 77335, 17993 #### [facility] [address] [facility] [place] [address], [facility] MCHC (RBC) [Mass/Vol] 32.8 g/dL Normal 32.0-35.0 [facility] Comment on above: Performed By: #### 3 1397, 05449, 50744, 66461, 94358 #### [facility] [address] [place] [address], [facility] MCV (RBC) [Entitic vol] 95.6 fL Normal 82.0-98.0 [facility] Comment on above: Performed By: #### 3 1397, 61821, 69762, 92079, 09562 #### [facility] [address] [facility] [place] [place] [address], [facility] Monocytes (Bld) [#/Vol] 0.5 10*3/uL Normal 0.1-1.0 [facility] Comment on above: Performed By: #### 3 1397, 41961, 63743, 20038, 05120 #### [facility] [address] [facility] [place] [address], [facility] MONOS 4.9 % Low 5.0-12.0 [facility] Comment on above: Performed By: #### 3 1397, 73685, 48901, 54366, 17430 #### [facility] [address] [facility] [place] [address], [facility] Neutrophils/100 WBC (Bld) 72.0 % Normal 40.0-72.0 [facility] Comment on above: Performed By: #### 3 1397, 62467, 87167, 75236, 21862 #### [facility] [address] [facility] [place] [address], [facility] Nucleated RBC/100 WBC (Bld) [Ratio] 0 % Normal 0-0 [facility] Comment on above: Performed By: #### 3 1397, 32201, 80078, 04472, 38591 #### [facility] [address] [facility] [place] [address], [facility] PLAT CNT 315 10*3/uL Normal 150-400 [facility] Comment on above: Performed By: #### 3 1397, 25468, 94301, 05941, 83820 #### [facility] [address] [facility] [place] [address], [facility] RBC (Bld) [#/Vol] 3.61 10*6/uL Low 3.80-5.00 [facility] Comment on above: Performed By: #### 3 1397, 60238, 96829, 74242, 43693 #### [facility] [address] [facility] [place] [place] [address], [facility] WBC (Bld) [#/Vol] 10.78 10*3/uL High 4.00-10.60 [facility] Comment on above: Performed By: #### 3 1397, 98810, 48096, 63778, 97306 #### [facility] [address] [place] [address], [facility] CHEST AND LATERALon 02-13-20 CHEST AND LATERAL [facility] Department of Radiology [address] [place] [id number] Patient Name: MANDEEP PURI : 1975 Sex: F Age: Race: White Pt. Location: 20 Patient Status: D Ordered Date: 02/12/2022 1:55:00 PM Completed Date: 02/12/2022 02:03 PM Requesting Provider: HAIDER FRENCH Attending Provider: HAIDER FRENCH Report Copy To: Signs & Symptoms: Z01.818 Encounter for other preprocedural examination I10 History: Comments: Exam: CHEST AND LATERAL CHEST AND LATERAL 02/12/2022 2:03 PM CLINICAL INDICATIONS: Z01.818 Encounter for other preprocedural examination I10 TECHNOLOGIST COMMENTS: Pre-op renal transplant workup QUESTION FOR THE RADIOLOGIST: PROTOCOL: AP(PA) and Lateral views were obtained. COMPARISON: None FINDINGS: PA, lateral and dual energy images of the chest. Cardiac silhouette is normal in size and configuration. Lungs and costophrenic recesses are clear. Trachea is in the midline. Bony skeleton appears intact. IMPRESSION: No evidence of acute cardiopulmonary pathology. Electronically signed: Royal Dominguez. Transcribed by: [email or web address], User Resident: Electronically Signed by: ROYAL DOMINGUEZ @ 02/13/2022 11:48 AM Normal [facility] CMV IGG BLOODon 02-12-2022 CMV IGG 3.13 Normal [facility] Comment on above: Result Comment: NORM AL RANGES: < OR = 0.9O NEGATIVE ; NO DETECTABLE IgG ANTIBODY TO CMV 0.91 - 1.09 EQUIVOCAL; REPEAT TESTING SUGGESTED > OR = 1.10 POSITIVE ; INDICATES PRESENCE OF DETECTABLE IgG ANTIBODY TO CMV Performed By: #### 3 1397, 39619, 39656, 76181, 81810 #### [facility] [address] [place] [address], [facility] COMP METABOLIC PANELon 02-12 Albumin [Mass/Vol] 4.5 g/dL Normal 3.5-5.7 [facility] Comment on above: Performed By: #### 2 2505, 64497, 82124 #### [facility] [address] [place] [address], [facility] ALKALINE PHOSPH 89 IU/L Normal 34-104 [facility] Comment on above: Performed By: #### 2 2505, 03055, 45889 #### [facility] [address] [place] [address], [place] ALT [Catalytic activity/Vol] 12 U/L Normal 7-52 [facility] Comment on above: Performed By: #### 2 2505, 84615, 06037 #### [facility] [address] [place] [address], [place] AST [Catalytic activity/Vol] 13 U/L Normal 13-39 [facility] Comment on above: Performed By: #### 2 2505, 49781, 66873 #### [facility] [address] [place] [address], [place] Bilirubin [Mass/Vol] 0.3 mg/dL Normal 0.3-1.0 [facility] Comment on above: Performed By: #### 2 2505, 39938, 39959 #### [facility] [address] [place] [address], [place] Calcium [Mass/Vol] 9.5 mg/dL Normal 8.6-10.3 [facility] Comment on above: Performed By: #### 2 2505, 31143, 17559 #### [facility] [address] [place] [address], [place] Chloride [Moles/Vol] 103 mmol/L Normal 98-107 [facility] Comment on above: Performed By: #### 2 2505, 94217, 84889 #### [facility] [address] [place] [address], [place] CO2 [Moles/Vol] 22 mmol/L Normal 21-31 [facility] Comment on above: Performed By: #### 2 2505, 91975, 28992 #### [facility] [address] [place] [address], [place] Creatinine [Mass/Vol] 3.51 mg/dL High 0.60-1.20 [facility] Comment on above: Performed By: #### 2 2505, 81289, 87742 #### [facility] [address] [place] [address], [place] eGFR- 17 ml/min/1.73sq m Abnormal >60 [facility] Comment on above: Performed By: #### 2 2505, 64261, 62494 #### [facility] [address] [place] [address], [place] eGFR- non- 14 ml/min/1.73sq m Abnormal >60 [facility] Comment on above: Performed By: #### 2 2505, 24334, 09244 #### [facility] [address] [place] [address], [place] Glucose [Mass/Vol] 100 mg/dL Normal 70-100 [facility] Comment on above: Performed By: #### 2 2505, 73828, 77424 #### [facility] [address] [place] [address], [place] Potassium [Moles/Vol] 3.9 mmol/L Normal 3.5-5.1 [facility] Comment on above: Performed By: #### 2 2505, 31900, 27534 #### [facility] [address] [place] [address], [facility] Protein [Mass/Vol] 8.0 g/dL Normal 6.0-8.3 [facility] Comment on above: Performed By: #### 2 2505, 46193, 26725 #### [facility] [address] [place] [address], [facility] Sodium [Moles/Vol] 136 mmol/L Normal 136-145 [facility] Comment on above: Performed By: #### 2 2505, 86152, 08821 #### [facility] [address] [place] [address], [facility] Urea nitrogen [Mass/Vol] 41 mg/dL High 7-25 [facility] Comment on above: Performed By: #### 2 2505, 15523, 15257 #### [facility] [address] [facility] [address], [facility] CREATININE URINE RANDOMon Creatinine (U) [Mass/Vol] 63.0 mg/dL Normal [facility] Comment on above: Result Comment: Ther e are no established reference values for random urine specimens Performed By: #### 3 1397, 82765, 53869, 51038, 20217 #### [facility] [address] [facility] [place] [place] [address], [facility] CT RENAL RECIPIENT ABDOMEN A ND PEVLIS WO CONTRASTon 02-12-2022 CT RENAL RECIPIENT ABDOMEN AND PEVLIS WO CONTRAST [facility] Department of Radiology [address] [place] [address] Patient Name: MANDEEP PURI : 1975 Sex: F Age: Race: White Pt. Location: 20 Patient Status: O Ordered Date: 02/12/2022 1:55:00 PM Completed Date: 02/12/2022 02:04 PM Requesting Provider: HAIDER FRENCH Attending Provider: HAIDER FRENCH Report Copy To: Signs & Symptoms: Z01.818 Encounter for other preprocedural examination I10 History: Bhavana Comments: , Pre-kidney transplant work-up. Please evaluate vessels for kidney transplant , Height (ft.): 5 ft 2 in , Weight (lbs): 207 , Pre-kidney transplant work-up. Please evaluate vessels for kidney transplant , Height (ft.): 5 ft 2 in , Weight (lbs): 207 , , , Ordering Provider - HAIDER FRENCH MD , Exam: CT RENAL RECIPIENT ABDOMEN AND PEVLIS WO CONTRAST CLINICAL INFORMATION: Renal transplant evaluation COMPARISON: None TECHNIQUE: CT of the abdomen and pelvis without intravenous contrast. FINDINGS: Limited evaluation of the solid organs in the absence of IV contrast. LOWER CHEST: Lung bases are clear. No pericardial pleural effusion. Normal distal esophagus. LIVER AND BILIARY: Probable hepatic steatosis. A 0.8 cm hypodense lesion in segment 6, incompletely characterized on noncontrast study, though statistically cyst or hemangioma. Gallbladder present with dependent sludge suspected. No demonstrated biliary dilatation. PANCREAS: Within normal limits. SPLEEN: Within normal limits. ADRENALS: Within normal limits. KIDNEYS, URETERS, AND BLADDER: Innumerable simple and probable hemorrhagic bilateral renal cysts. Overall, sensitivity for any solid lesion given lack of contrast and multiplicity of these lesions. Many of these lesions demonstrated wall calcification. No definitive dilatation. Normal bladder contour. GI TRACT AND PERITONEUM: No bowel obstruction. No abnormal bowel thickening. Normal stomach contour. Normal appendix. No free fluid. No free air. VASCULATURE: Aorta is of normal caliber. Evaluation of the right iliac arterial system demonstrates minimal calcified plaque at the distal bifurcation common iliac artery. The external iliac and common femoral arteries are without significant plaque. Calcified plaque at the proximal left external artery LYMPH NODES: No enlarged nodes by CT size criteria. REPRODUCTIVE ORGANS: Uterus not identified with confidence. A 4.4 cm low-density lesion in the left adnexa somewhat asymmetrically. MUSCULOSKELETAL: Tiny periumbilical fat-containing hernia. Body wall soft tissues without acute abnormality. No acute osseous. IMPRESSION: 1. Minimal pelvic atherosclerotic burden, detailed above. 2. Indeterminate left adnexal/ovarian cystic lesion(s), requiring correlation with menopausal status. Recommend pelvic ultrasound evaluation. 3. Polycystic kidneys, significantly limited evaluation for any solid renal neoplasm. 4. Hepatic steatosis All CT scans at this facility use dose modulation, iterative reconstruction, and/or weight based dosing when appropriate to reduce radiation dose to as low as reasonably achievable. Electronically signed: NAN SARAVIA. Transcribed by: [email or web address], User Resident: Electronically Signed by: NAN SARAVIA @ 02/12/2022 02:59 PM Normal [facility] Comment on above: Order Comment: , Pre -kidney transplant work-up. Please evaluate vessels for kidney transplant , Height (ft.): 5 ft 2 in , Weight (lbs): 207 , Pre-kidney transplant work-up. Please evaluate vessels for kidney transplant , Height (ft.): 5 ft 2 in , Weight (lbs): 207 , , , Ordering Provider - HAIDER FRENCH MD , DIRECT BILIon 02-12-2022 Bilirubin.direct [Mass/Vol] 0.0 mg/dL Normal 0.0-0.2 [facility] Comment on above: Performed By: #### 2 9402, 53987, 60376 #### [facility] [address] [facility] [place] [address], [facility] BRETT LAGUERRE VIRUS ABon 05-1 EB VCA IGG 2.35 Normal [facility] Comment on above: Order Comment: CONSI STENT WITH PAST EBV INFECTION Result Comment: NORM AL RANGES: < OR = 0.9O NEGATIVE ; NO DETECTABLE IgG ANTIBODY TO EBV-VCA 0.91 - 1.09 EQUIVOCAL; REPEAT TESTING SUGGESTED > OR = 1.10 POSITIVE ; INDICATES PRESENCE OF DETECTABLE IgG ANTIBODY TO EBV Performed By: #### 3 1397, 88507, 51538, 27295, 19375 #### [facility] [address] [place] [address], [facility] EB VCA IGM 0.00 Normal [facility] Comment on above: Order Comment: CONSI STENT WITH PAST EBV INFECTION Result Comment: NORM AL RANGES: < OR = 0.9O NEGATIVE ; NO SIGNIFICANT LEVEL OF DETECTABLE EBV-VCA IgM AB 0.91 - 1.09 EQUIVOCAL; REPEAT TESTING SUGGESTED > OR = 1.10 POSITIVE ; SIGNIFICANT LEVEL OF DETECTABLE EBV-VCA IgM AB Performed By: #### 3 1397, 01856, 91684, 03166, 12693 #### [facility] [address] [place] [address], [facility] HEMOGLOBIN A1Con 02-12-2022 Glucose [Moles/Vol] 120 mmol/L Normal [facility] Comment on above: Performed By: #### 8 4933, 09117 #### [facility] [address] [place] [address], [facility] HbA1c (Bld) [Mass fraction] 5.8 % Normal 4.0-6.0 [facility] Comment on above: Performed By: #### 8 5123, 96301 #### [facility] [address] [facility] [place] [id number], [facility] HEPATITIS A ANTIBODY IGMon 0 02-12-2022 HEP A AB IGM Non-Reactive Normal NONREACTIVE [facility] Comment on above: Performed By: #### 3 1397, 13913, 99688, 20793, 36588 #### [facility] [address] [place] [address], [facility] HEPATITIS B CORE ANTIBODYon 02-12-2022 HEP B CORE AB Non-Reactive Normal NONREACTIVE [facility] Comment on above: Performed By: #### 3 1397, 43412, 40163, 51622, 24842 #### [facility] [address] HEPATITIS B SURFACE ANTIBODY QUANTon 02-12-2022 HEP B SURF AB 1.14 mIU/ml Normal [facility] Comment on above: Result Comment: INTE RPRETATION: NONREACTIVE<8.00 mIU/mL INDETERMINATE8.00 - 12.00 mIU/mL REACTIVE>12 mIU/mL Performed By: #### 3 1397, 08322, 29999, 45481, 49445 #### [facility] [address] HEPATITIS B SURFACE ANTIGEN QUALon 02-12-2022 HEP B SURF AG QUAL Non-Reactive Normal NONREACTIVE [facility] Comment on above: Performed By: #### 3 1397, 40558, 58592, 56931, 05596 #### [facility] [address] [facility]. [address] HEPATITIS C ANTIBODYon 02-12 ANTI-HCV Non-Reactive Normal NONREACTIVE [facility] Comment on above: Performed By: #### 3 1397, 22996, 02742, 52883, 95241 #### [facility] [address] [facility]. [address] HIV1 AND 2 COMBO 4Gon 2021 HIV COMBO Negative Normal NEGATIVE [facility] Comment on above: Performed By: #### 3 1397, 25283, 94295, 62101, 82673 #### [facility] [address] HLA ABC CLASS I TYPINGon A*-1 EQUIVALENT 1 Normal [facility] Comment on above: Order Comment: Some of the reagents used for clinical histocompatibility testing havebeen approved by the FDA for research only. Through our certificationby CLIA to perform high complexity testing and through our stringentquality control program, these reagents have been rigorously tested andvalidated for clinical use. Typing performed may include components ofSSOP and/or SSP testing in order to obtain a valid HLA typing. Otherrare HLA alleles may be possible, but not probable, due to frequency. Performed By: #### 3 1397, 07047, 65674, 87227, 12429 #### [facility] [address] [place] [address], [place] A*-2 EQUIVALENT 2 Normal [facility] Comment on above: Order Comment: Some of the reagents used for clinical histocompatibility testing havebeen approved by the FDA for research only. Through our certificationby CLIA to perform high complexity testing and through our stringentquality control program, these reagents have been rigorously tested andvalidated for clinical use. Typing performed may include components ofSSOP and/or SSP testing in order to obtain a valid HLA typing. Otherrare HLA alleles may be possible, but not probable, due to frequency. Performed By: #### 3 1397, 85600, 01674, 03479, 70359 #### [facility] [address] [facility] [place] [place] [address], [place] B*-1 EQUIVALENT 35 Normal [facility] Comment on above: Order Comment: Some of the reagents used for clinical histocompatibility testing havebeen approved by the FDA for research only. Through our certificationby CLIA to perform high complexity testing and through our stringentquality control program, these reagents have been rigorously tested andvalidated for clinical use. Typing performed may include components ofSSOP and/or SSP testing in order to obtain a valid HLA typing. Otherrare HLA alleles may be possible, but not probable, due to frequency. Performed By: #### 3 1397, 36949, 73337, 93743, 56875 #### [facility] [address] [place] [address], [place] B*-2 EQUIVALENT 37 Normal [facility] Comment on above: Order Comment: Some of the reagents used for clinical histocompatibility testing havebeen approved by the FDA for research only. Through our certificationby CLIA to perform high complexity testing and through our stringentquality control program, these reagents have been rigorously tested andvalidated for clinical use. Typing performed may include components ofSSOP and/or SSP testing in order to obtain a valid HLA typing. Otherrare HLA alleles may be possible, but not probable, due to frequency. Performed By: #### 3 1397, 98367, 48781, 51888, 69105 #### [facility] [address] [place] [address], [facility] Bw*-1 EQUIVALENT 4 Normal [facility] Comment on above: Order Comment: Some of the reagents used for clinical histocompatibility testing havebeen approved by the FDA for research only. Through our certificationby CLIA to perform high complexity testing and through our stringentquality control program, these reagents have been rigorously tested andvalidated for clinical use. Typing performed may include components ofSSOP and/or SSP testing in order to obtain a valid HLA typing. Otherrare HLA alleles may be possible, but not probable, due to frequency. Performed By: #### 3 1397, 05940, 26753, 27375, 97210 #### [facility] [address] [facility] [place] [address], [facility] Bw*-2 EQUIVALENT 6 Normal [facility] Comment on above: Order Comment: Some of the reagents used for clinical histocompatibility testing havebeen approved by the FDA for research only. Through our certificationby CLIA to perform high complexity testing and through our stringentquality control program, these reagents have been rigorously tested andvalidated for clinical use. Typing performed may include components ofSSOP and/or SSP testing in order to obtain a valid HLA typing. Otherrare HLA alleles may be possible, but not probable, due to frequency. Performed By: #### 3 1397, 87822, 72130, 83868, 94664 #### [facility] [address] [facility] [place] [place] [address], [facility] C*-1 EQUIVALENT 4 Normal [facility] Comment on above: Order Comment: Some of the reagents used for clinical histocompatibility testing havebeen approved by the FDA for research only. Through our certificationby CLIA to perform high complexity testing and through our stringentquality control program, these reagents have been rigorously tested andvalidated for clinical use. Typing performed may include components ofSSOP and/or SSP testing in order to obtain a valid HLA typing. Otherrare HLA alleles may be possible, but not probable, due to frequency. Performed By: #### 3 1397, 47130, 12695, 45307, 92667 #### [facility] [address] [place] [address], [facility] C*-2 EQUIVALENT 6 Normal [facility] Comment on above: Order Comment: Some of the reagents used for clinical histocompatibility testing havebeen approved by the FDA for research only. Through our certificationby CLIA to perform high complexity testing and through our stringentquality control program, these reagents have been rigorously tested andvalidated for clinical use. Typing performed may include components ofSSOP and/or SSP testing in order to obtain a valid HLA typing. Otherrare HLA alleles may be possible, but not probable, due to frequency. Performed By: #### 3 1397, 91506, 99228, 35645, 20943 #### [facility] [address] [facility] [place] [place] [address], [facility] METHOD Class I Typing by PCR-SSOP Lum[employer] Normal [facility] Comment on above: Order Comment: Some of the reagents used for clinical histocompatibility testing havebeen approved by the FDA for research only. Through our certificationby CLIA to perform high complexity testing and through our stringentquality control program, these reagents have been rigorously tested andvalidated for clinical use. Typing performed may include components ofSSOP and/or SSP testing in order to obtain a valid HLA typing. Otherrare HLA alleles may be possible, but not probable, due to frequency. Performed By: #### 3 1397, 35434, 07805, 00754, 12265 #### [facility] [address] [place] [address], [facility] SIGNED BY Normal [facility] Comment on above: Order Comment: Some of the reagents used for clinical histocompatibility testing havebeen approved by the FDA for research only. Through our certificationby CLIA to perform high complexity testing and through our stringentquality control program, these reagents have been rigorously tested andvalidated for clinical use. Typing performed may include components ofSSOP and/or SSP testing in order to obtain a valid HLA typing. Otherrare HLA alleles may be possible, but not probable, due to frequency. Result Comment: Sree Noriega MS,CHT(DONA),MT(ASCP) [employer], Transplant Immunology Performed By: #### 3 1397, 36933, 62081, 16006, 40402 #### [facility] [address] [place] [address], [facility] HLA DR CLASS II TYPINGon DPB1*-1 EQUIVALENT 04:01 Normal [facility] Comment on above: Order Comment: Some of the reagents used for clinical histocompatibility testing havebeen approved by the FDA for research only. Through our certificationby CLIA to perform high complexity testing and through our stringentquality control program, these reagents have been rigorously tested andvalidated for clinical use. Typing performed may include components ofSSOP and/or SSP testing in order to obtain a valid HLA typing. Otherrare HLA alleles may be possible, but not probable, due to frequency. Performed By: #### 3 1397, 97558, 32974, 80548, 98577 #### [facility] [address] [facility] [place] [address], [facility] DPB1*-2 EQUIVALENT 04:02 Normal [facility] Comment on above: Order Comment: Some of the reagents used for clinical histocompatibility testing havebeen approved by the FDA for research only. Through our certificationby CLIA to perform high complexity testing and through our stringentquality control program, these reagents have been rigorously tested andvalidated for clinical use. Typing performed may include components ofSSOP and/or SSP testing in order to obtain a valid HLA typing. Otherrare HLA alleles may be possible, but not probable, due to frequency. Performed By: #### 3 1397, 40324, 08923, 16418, 46530 #### [facility] [address] [place] [address], [place] DQA1*-1 EQUIVALENT 01 Normal [facility] Comment on above: Order Comment: Some of the reagents used for clinical histocompatibility testing havebeen approved by the FDA for research only. Through our certificationby CLIA to perform high complexity testing and through our stringentquality control program, these reagents have been rigorously tested andvalidated for clinical use. Typing performed may include components ofSSOP and/or SSP testing in order to obtain a valid HLA typing. Otherrare HLA alleles may be possible, but not probable, due to frequency. Performed By: #### 3 1397, 03984, 28256, 74995, 90525 #### [facility] [address] [facility] [place] [address], [facility] DQA1*-2 EQUIVALENT 05 Normal [facility] Comment on above: Order Comment: Some of the reagents used for clinical histocompatibility testing havebeen approved by the FDA for research only. Through our certificationby CLIA to perform high complexity testing and through our stringentquality control program, these reagents have been rigorously tested andvalidated for clinical use. Typing performed may include components ofSSOP and/or SSP testing in order to obtain a valid HLA typing. Otherrare HLA alleles may be possible, but not probable, due to frequency. Performed By: #### 3 1397, 40482, 92819, 08706, 55880 #### [facility] [address] [facility] [place] [address], [place] DQB1*-1 EQUIVALENT 7 Normal [facility] Comment on above: Order Comment: Some of the reagents used for clinical histocompatibility testing havebeen approved by the FDA for research only. Through our certificationby CLIA to perform high complexity testing and through our stringentquality control program, these reagents have been rigorously tested andvalidated for clinical use. Typing performed may include components ofSSOP and/or SSP testing in order to obtain a valid HLA typing. Otherrare HLA alleles may be possible, but not probable, due to frequency. Performed By: #### 3 1397, 90473, 75268, 16416, 47877 #### [facility] [address] [place] [address], [place] DQB1*-2 EQUIVALENT 5 Normal [facility] Comment on above: Order Comment: Some of the reagents used for clinical histocompatibility testing havebeen approved by the FDA for research only. Through our certificationby CLIA to perform high complexity testing and through our stringentquality control program, these reagents have been rigorously tested andvalidated for clinical use. Typing performed may include components ofSSOP and/or SSP testing in order to obtain a valid HLA typing. Otherrare HLA alleles may be possible, but not probable, due to frequency. Performed By: #### 3 1397, 01507, 99878, 07623, 71981 #### [facility] [address] [facility] [place] [address], [facility] DRB1*-1 EQUIVALENT 10 Normal [facility] Comment on above: Order Comment: Some of the reagents used for clinical histocompatibility testing havebeen approved by the FDA for research only. Through our certificationby CLIA to perform high complexity testing and through our stringentquality control program, these reagents have been rigorously tested andvalidated for clinical use. Typing performed may include components ofSSOP and/or SSP testing in order to obtain a valid HLA typing. Otherrare HLA alleles may be possible, but not probable, due to frequency. Performed By: #### 3 1397, 81193, 36320, 13448, 06314 #### [facility] [address] [facility] [place] [place] [address], [facility] DRB1*-2 EQUIVALENT 11 Normal [facility] Comment on above: Order Comment: Some of the reagents used for clinical histocompatibility testing havebeen approved by the FDA for research only. Through our certificationby CLIA to perform high complexity testing and through our stringentquality control program, these reagents have been rigorously tested andvalidated for clinical use. Typing performed may include components ofSSOP and/or SSP testing in order to obtain a valid HLA typing. Otherrare HLA alleles may be possible, but not probable, due to frequency. Performed By: #### 3 1397, 20607, 28803, 56321, 78126 #### [facility] [address] [place] [address], [facility] DRB3*-1 EQUIVALENT 52 Normal [facility] Comment on above: Order Comment: Some of the reagents used for clinical histocompatibility testing havebeen approved by the FDA for research only. Through our certificationby CLIA to perform high complexity testing and through our stringentquality control program, these reagents have been rigorously tested andvalidated for clinical use. Typing performed may include components ofSSOP and/or SSP testing in order to obtain a valid HLA typing. Otherrare HLA alleles may be possible, but not probable, due to frequency. Performed By: #### 3 1397, 98559, 90170, 97234, 57531 #### [facility] [address] [facility]. [address] METHOD Class II Typing by PCR-SSOP Luminex Normal [facility] Comment on above: Order Comment: Some of the reagents used for clinical histocompatibility testing havebeen approved by the FDA for research only. Through our certificationby CLIA to perform high complexity testing and through our stringentquality control program, these reagents have been rigorously tested andvalidated for clinical use. Typing performed may include components ofSSOP and/or SSP testing in order to obtain a valid HLA typing. Otherrare HLA alleles may be possible, but not probable, due to frequency. Performed By: #### 3 1397, 40404, 59191, 55585, 14336 #### [facility] [address] [facility] [place] [place] [address], [facility] LIPID PROFILEon 02-12-2022 Cholesterol [Mass/Vol] 221 mg/dL High 120-200 [facility] Comment on above: Result Comment: CHOL ESTEROL REFERENCE RANGE: 20 YEARS AND OLDER CARDIOVASCULAR RISK Less than 200 mg/dl Low Risk 200 to 239 mg/dl Borderline Risk 240 mg/dl and greater High Risk Performed By: #### 3 1397, 10447, 06730, 96429, 77422 #### [facility] [address] [facility] [place] [place] [address], [facility] Cholesterol in HDL [Mass/Vol] 40 mg/dL Normal 23-92 [facility] Comment on above: Result Comment: Slig ht variation in normal range could be due to gender and/or age. HDL CHOLESTEROL REFERENCE RANGE: 20 years and older Cardiovascular Risk > or =60 mg/dL Desirable 40 TO 59 mg/dL Low Risk <40 mg/dL High Risk Performed By: #### 3 1397, 51883, 68778, 36750, 79062 #### [facility] [address] [place] [address], [facility] Cholesterol in LDL [Mass/Vol] 101 mg/dL Normal 0-130 [facility] Comment on above: Result Comment: LDL IS A CALCULATION LDL IS ONLY VALID IF THE TRIG IS LESS THAN 400. Performed By: #### 3 1397, 27368, 89735, 95109, 59895 #### [facility] [address] [place] [address], [facility] Cholesterol.total/Chol esterol in HDL [Mass ratio] 5.5 {ratio} High .0-4.5 [facility] Comment on above: Performed By: #### 3 1397, 84747, 74692, 26923, 17065 #### [facility] [address] [place] [address], [facility] NON-HDL CHOLESTEROL 181 mg/dL Normal [facility] Comment on above: Performed By: #### 3 1397, 02247, 64370, 19116, 51399 #### [facility] [address] [place] [address], [facility] Triglyceride [Mass/Vol] 402 mg/dL High 40-149 [facility] Comment on above: Result Comment: TRIG LYCERIDE REFERENCE RANGE: 20 YEARS AND OLDER CARDIOVASCULAR RISK LESS THAN 150 mg/dl LOW RISK 150 TO 199 mg/dl BORDERLINE RISK 200 mg/dl AND GREATER HIGH RISK Performed By: #### 3 1397, 62745, 97763, 55247, 93990 #### [facility] [address] [place] [address], [facility] VLDL CHOL 80 mg/dL High 0-40 [facility] Comment on above: Performed By: #### 3 1397, 45632, 78015, 56519, 35355 #### [facility] [address] [place] [address], [place] MUMPS IGG BLDon 02-12-2022 MUMPS IGG 5.46 Normal [facility] Comment on above: Result Comment: NORM AL RANGES: < OR = 0.9O NEGATIVE ; NO DETECTABLE IgG ANTIBODY TO MUMPS 0.91 - 1.09 EQUIVOCAL; REPEAT TESTING SUGGESTED > OR = 1.10 POSITIVE ; INDICATES PRESENCE OF DETECTABLE IgG ANTIBODY TO MUMPS Performed By: #### 3 1397, 17106, 83021, 29962, 94985 #### [facility] [address] RUBELLAon 02-12-2022 RUBELLA 4.79 Normal [facility] Comment on above: Result Comment: NORM AL RANGES: < OR = 0.9O NEGATIVE ; NO DETECTABLE IgG ANTIBODY TO RUBELLA 0.91 - 1.09 EQUIVOCAL; REPEAT TESTING SUGGESTED > OR = 1.10 POSITIVE ; INDICATES PRESENCE OF DETECTABLE IgG ANTIBODY TO RUBELLA VIRUS Performed By: #### 3 1397, 36526, 48564, 57664, 76468 #### [facility] [address] RUBEOLA MEASLES IGGon 2021 RUBEO IGG 6.43 Normal [facility] Comment on above: Result Comment: NORM AL RANGES: < OR = 0.9O NEGATIVE ; NO DETECTABLE IgG ANTIBODY TO RUBEOLA 0.91 - 1.09 EQUIVOCAL; REPEAT TESTING SUGGESTED > OR = 1.10 POSITIVE ; INDICATES PRESENCE OF DETECTABLE IgG ANTIBODY TO RUBEOLA Performed By: #### 3 1397, 55921, 26100, 49027, 85854 #### [facility] [address] SINGLE ANTIGEN CLASS 1on METHOD Class I Single Antigen Normal [facility] Comment on above: Order Comment: Some of the reagents used for clinical histocompatibility testing havebeen approved by the FDA for research only. Through our certificationby CLIA to perform high complexity testing and through our stringentquality control program, these reagents have been rigorously tested andvalidated for clinical use. Typing performed may include components ofSSOP and/or SSP testing in order to obtain a valid HLA typing. Otherrare HLA alleles may be possible, but not probable, due to frequency. Performed By: #### 3 1397, 59190, 58731, 34251, 01127 #### [facility] [address] [place] [address], [facility] SINGLE ANTIGEN CLASS 2on COMMENTS Normal [facility] Comment on above: Order Comment: Some of the reagents used for clinical histocompatibility testing havebeen approved by the FDA for research only. Through our certificationby CLIA to perform high complexity testing and through our stringentquality control program, these reagents have been rigorously tested andvalidated for clinical use. Typing performed may include components ofSSOP and/or SSP testing in order to obtain a valid HLA typing. Otherrare HLA alleles may be possible, but not probable, due to frequency. Result Comment: Clas s II Antigen Microbeads Potential specificites added to the watch list. Performed By: #### 3 1397, 38899, 19043, 69176, 54271 #### [facility] [address] [facility]. [address] Result Comment: Clas s I Antigen Microbeads Potential specificites added to the watch list. CPRA 0 Normal [facility] Comment on above: Order Comment: Some of the reagents used for clinical histocompatibility testing havebeen approved by the FDA for research only. Through our certificationby CLIA to perform high complexity testing and through our stringentquality control program, these reagents have been rigorously tested andvalidated for clinical use. Typing performed may include components ofSSOP and/or SSP testing in order to obtain a valid HLA typing. Otherrare HLA alleles may be possible, but not probable, due to frequency. Performed By: #### 3 1397, 33501, 26902, 97355, 07382 #### [facility] [address] [place] [address], [facility] METHOD Class II Single Antigen Normal [facility] Comment on above: Order Comment: Some of the reagents used for clinical histocompatibility testing havebeen approved by the FDA for research only. Through our certificationby CLIA to perform high complexity testing and through our stringentquality control program, these reagents have been rigorously tested andvalidated for clinical use. Typing performed may include components ofSSOP and/or SSP testing in order to obtain a valid HLA typing. Otherrare HLA alleles may be possible, but not probable, due to frequency. Performed By: #### 3 1397, 60783, 38816, 54604, 57377 #### [facility] [address] [facility] [place] [address], [facility] T PROT UR Yesy 02-12-2022 U TOTAL PROTEIN 44.0 mg/dL Normal [facility] Comment on above: Result Comment: Ther e are no established reference values for random urine specimens Performed By: #### 3 1397, 14224, 39562, 39239, 02912 #### [facility] [address] [facility]. [address] TB QUANTIFERON PLUSon 2021 MITOGEN MINUS NIL >10.00 Normal [facility] Comment on above: Performed By: #### 3 1592 #### [facility] [address] [facility]. [address] NIL 0.03 IU/mL Normal [facility] Comment on above: Performed By: #### 3 1592 #### [facility] [address] [facility]. [address] TB QUANTIFERON Negative Normal NEGATIVE [facility] Comment on above: Result Comment: Jadiel tiferon TB Gold Interpretation (IU/mL): NEGATIVE: M. tuberculosis infection not likely. Nil: <=8.0 TB1 Antigen minus Nil ([id number]): <0.35 OR >=0.35; and <25% of Nil value. TB2 Antigen minus Nil (IT0PC-RSI): <0.35 OR >=0.35; and <25% of Nil value. Mitogen minus Nil (MARY-NIL): >=0.50 NOTE: Diagnosing or excluding tuberculosis disease, and assessing the probability of LTBI, requires a combination of epidemiological, historical, medical, and diagnostic findings that should be taken into account when interpreting QuantiFERON (TM)-TB Gold results. See general guidance on the diagnosis and treatment of TB disease and LTBI (https://www.cdc.gov/tb/publications/guidlines/default.htm Performed By: #### 3 1592 #### [facility] [address] [facility] [place] [address], [facility] TB1 AG 0.05 IU/mL Normal [facility] Comment on above: Performed By: #### 3 1592 #### [facility] [address] [place] [address], [facility] TB1 AG MINUS NIL 0.02 IU/mL Normal [facility] Comment on above: Performed By: #### 3 1592 #### [facility] [address] [facility] [place] [address], [facility] TB2 AG 0.05 IU/mL Normal [facility] Comment on above: Performed By: #### 3 1592 #### [facility] [address] [facility] [place] [address], [facility] TB2 AG MINUS NIL 0.02 IU/mL Normal [facility] Comment on above: Performed By: #### 3 1592 #### [facility] [address] [facility] [place] [place] [address], [facility] UA,MICROSCOPIC REQUIREDon Appearance (U) SL CLOUDY Abnormal CLEAR [facility] Comment on above: Performed By: #### 3 1397, 65296, 35798, 49007, 13565 #### [facility] [address] [facility] [place] [address], [facility] Bilirubin Ql (U) Negative Normal NEGATIVE [facility] Comment on above: Performed By: #### 3 1397, 86787, 76902, 99782, 05138 #### [facility] [address] [facility] [place] [place] [address], [facility] Color (U) STRAW Abnormal YELLOW [facility] Comment on above: Performed By: #### 3 1397, 10706, 64773, 16810, 94539 #### [facility] [address] [facility] [place] [id number], [facility] EPIS MANY Abnormal FEW,OCC,NONE SEEN [facility] Comment on above: Performed By: #### 3 1397, 81916, 64202, 50383, 01911 #### [facility] [address] [place] [address], [facility] Glucose Ql (U) 50 mg/dL Abnormal NEGATIVE [facility] Comment on above: Performed By: #### 3 1397, 56380, 85951, 84028, 90804 #### [facility] [address] [place] [address], [facility] Hemoglobin Ql (U) Negative Normal NEGATIVE [facility] Comment on above: Performed By: #### 3 1397, 15554, 83590, 28931, 26829 #### [facility] [address] [place] [address], [facility] KETONE Negative Normal NEGATIVE [facility] Comment on above: Performed By: #### 3 1397, 64624, 00430, 75320, 63773 #### [facility] [address] [place] [address], [facility] LEUK MARYAN MODERATE Abnormal NEGATIVE [facility] Comment on above: Performed By: #### 3 1397, 67219, 52972, 10029, 16988 #### [facility] [address] [place] [address], [facility] Nitrite Ql (U) Negative Normal NEGATIVE [facility] Comment on above: Performed By: #### 3 1397, 94929, 44475, 43421, 73778 #### [facility] [address] [place] [address], [facility] pH (U) 7.0 [pH] Normal 5.0-8.0 [facility] Comment on above: Performed By: #### 3 1397, 44230, 18756, 77789, 46321 #### [facility] [address] [place] [address], [facility] Protein Ql (U) 30 mg/dL Abnormal NEGATIVE [facility] Comment on above: Performed By: #### 3 1397, 08477, 50116, 82975, 08276 #### [facility] [address] [facility] [place] [place] [address], [facility] RBC NONE SEEN Normal NONE SEEN [facility] Comment on above: Performed By: #### 3 1397, 81644, 90168, 84646, 98521 #### [facility] [address] [facility] [place] [address], [facility] SPEC GRAV 1.009 Low 1.015-1.020 [facility] Comment on above: Performed By: #### 3 1397, 89945, 33255, 58028, 05973 #### [facility] [address] [facility] [place] [place] [address], [facility] WBC UA 11-20 Abnormal NONE SEEN [facility] Comment on above: Performed By: #### 3 1397, 39221, 98555, 45146, 69245 #### [facility] [address] [facility] VARICELLA ZOSTER IGGon 02-12 VARICELLA IGG 3.29 Normal [facility] Comment on above: Result Comment: NORM AL RANGES: < OR = 0.9O NEGATIVE ; NO DETECTABLE IgG ANTIBODY TO VARICELLA-ZOSTER VIRUS 0.91 - 1.09 EQUIVOCAL; REPEAT TESTING SUGGESTED > OR = 1.10 POSITIVE ; INDICATES PRESENCE OF DETECTABLE IgG ANTIBODY TO VARICELLA-ZOSTER VIRUS Performed By: #### 3 1397, 72192, 02852, 79625, 01590 #### [facility] [address] [facility]. [address] PTH INTACTon 12-04-2021 PTH, Intact 165 pg/mL Critically high 15-65 [facility] Comment on above: Performed By: #### M G, URIC, RENAL #### [facility] [address] [place] [address] [address] Hari Palmer FERRITINon 12-03-2021 Ferritin [Mass/Vol] 256.0 ng/mL Critically high 6.2-137.0 [facility] Comment on above: Performed By: #### M G, URIC, RENAL #### [facility] [address] [place] [address] Dr. Hari Palmer HEMOGRAM AND PLATELon 2021 Hematocrit (Bld) [Volume fraction] 33.7 % Critically low 36.0-48.0 [facility] Comment on above: Performed By: #### M G, URIC, RENAL #### [facility] [address] [place] [address] Dr. Hari Palmer Hemoglobin (Bld) [Mass/Vol] 10.9 g/dL Critically low 12.0-16.0 [facility] Comment on above: Performed By: #### M G, URIC, RENAL #### [facility] [address] [place] [address] Dr. Hari Palmer MCH (RBC) [Entitic mass] 31.4 pg Normal 26.7-34.0 [facility] Comment on above: Performed By: #### M G, URIC, RENAL #### [facility] [address] [place] [address] Dr. Hari Palmer MCHC (RBC) [Mass/Vol] 32.3 g/dL Normal 29.9-35.2 [facility] Comment on above: Performed By: #### M G, URIC, RENAL #### [facility] [address] [place] [address] Dr. Hari Palmer MCV (RBC) [Entitic vol] 97.1 fL Normal 81.0-99.0 [facility] Comment on above: Performed By: #### M G, URIC, RENAL #### [facility] [address] [place] [address] Dr. Hari Palmer PLT 314 103/ul Normal 150-450 [facility] Comment on above: Performed By: #### M G, URIC, RENAL #### [facility] [address] [place] [address] Dr. Hari Palmer RBC 3.47 106/ul Critically low 4.20-5.40 [facility] Comment on above: Performed By: #### M G, URIC, RENAL #### [facility] [address] [place] [address] Dr. Hari Palmer WBC 9.4 103/ul Normal 4.0-11.0 [facility] Comment on above: Performed By: #### M G, URIC, RENAL #### [facility] [address] [place] [address] Dr. Hari Palmer IRON AND TIBCon 12-03-2021 % SATURATION 19.0 % Normal [facility] Comment on above: Performed By: #### M G, URIC, RENAL #### [facility] [address] [place] [address] Dr. Hari Palmer Iron [Mass/Vol] 52.0 ug/dL Normal 37.0-170.0 [facility] Comment on above: Performed By: #### M G, URIC, RENAL #### [facility] [address] [place] [address] Dr. Hari Palmer TIBC DIRECT 273.0 ug/dL Normal 261.0-497.0 [facility] Comment on above: Performed By: #### M G, URIC, RENAL #### [facility] [address] [place] [address] Dr. Hari Palmer MAGNESIUMon 12-03-2021 Magnesium [Mass/Vol] 2.1 mg/dL Normal 1.6-2.3 [facility] Comment on above: Performed By: #### M G, URIC, RENAL #### [facility] [address] [place] [address] Dr. Hari Palmer RENAL FUNCTION PANELon 12-03 Albumin [Mass/Vol] 3.6 g/dL Normal 3.5-5.0 [facility] Comment on above: Performed By: #### M G, URIC, RENAL #### [facility] [address] [place] [address] Dr. Hari Palmer Calcium [Mass/Vol] 8.4 mg/dL Normal 8.4-10.2 [facility] Comment on above: Performed By: #### M G, URIC, RENAL #### [facility] [address] [place] [address] [address] Hari Palmer Chloride [Moles/Vol] 101 mmol/L Normal 98-107 [facility] Comment on above: Performed By: #### M G, URIC, RENAL #### [facility] [address] [place] [address] Dr. Hari Palmer CO2 [Moles/Vol] 24.3 mmol/L Normal 22.0-30.0 [facility] Comment on above: Performed By: #### M G, URIC, RENAL #### [facility] [address] [place] [address] Dr. Hari Palmer Creatinine [Mass/Vol] 3.32 mg/dL Critically high 0.52-1.04 [facility] Comment on above: Performed By: #### M G, URIC, RENAL #### [facility] [address] [place] [address] Dr. Hari Palmer EGFR-AF AUSTRALIAN 18 mL/min/1.73m2 Critically low >=60 [facility] Comment on above: Performed By: #### M G, URIC, RENAL #### [facility] [address] [place] [address] Dr. Hari Palmer EGFR-NON AF AUSTRALIAN 15 mL/min/1.73m2 Critically low >=60 [facility] Comment on above: Performed By: #### M G, URIC, RENAL #### [facility] [address] [place] [address] Dr. Hari Palmer Glucose [Mass/Vol] 119 mg/dL Critically high 74-106 [facility] Comment on above: Performed By: #### M G, URIC, RENAL #### [facility] [address] [place] [address] Dr. Hari Palmer Phosphate [Mass/Vol] 4.7 mg/dL Critically high 2.5-4.5 [facility] Comment on above: Performed By: #### M G, URIC, RENAL #### [facility] [address] [place] [address] Dr. Hari Palmer Potassium [Moles/Vol] 4.0 mmol/L Normal 3.4-5.0 [facility] Comment on above: Performed By: #### M G, URIC, RENAL #### [facility] [address] [address] [address] Hari Palmer Sodium [Moles/Vol] 135 mmol/L Critically low 137-145 [facility] Comment on above: Performed By: #### M G, URIC, RENAL #### [facility] [address] [place] [address] Dr. Hari Palmer Urea nitrogen [Mass/Vol] 42.0 mg/dL Critically high 7.0-17.0 [facility] Comment on above: Performed By: #### M G, URIC, RENAL #### [facility] [address] [place] [address] Dr. Hari Palmer UA RANDOM W/MICROSCOPICon BACTERIA TRACE Abnormal NONE SEEN [facility] Comment on above: Performed By: #### U AMIC #### [facility] [address] [place] [address] Dr. Hari Palmer Bilirubin Ql (U) Negative Normal NEGATIVE [facility] Comment on above: Performed By: #### U AMIC #### [facility] [address] [place] [address] Dr. Hari Palmer CAST NONE SEEN Normal NONE SEEN [facility] Comment on above: Performed By: #### U AMIC #### [facility] [address] [place] [address] Dr. Hari Palmer Clarity (U) CLEAR Normal CLEAR [facility] Comment on above: Performed By: #### U AMIC #### [facility] [address] [place] [address] Dr. Hari Palmer Color (U) LT. YELLOW Normal YELLOW [facility] Comment on above: Performed By: #### U AMIC #### [facility] [address] [place] [address] Dr. Hari Palmer Crystals LM Nom (Urine sed) NONE SEEN Normal NONE SEEN [facility] Comment on above: Performed By: #### U AMIC #### [facility] [address] [place] [address] Dr. Hari Palmer Epithelial cells LM Ql (Urine sed) FEW Abnormal NONE SEEN /RARE [facility] Comment on above: Performed By: #### U AMIC #### [facility] [address] [place] [address] Dr. Hari Palmer Glucose Ql (U) 100 mg/dl Abnormal NEGATIVE [facility] Comment on above: Performed By: #### U AMIC #### [facility] [address] [place] [address] Dr. Hari Palmer Hemoglobin Ql (U) TRACE-INTACT Abnormal NEGATIVE [facility] Comment on above: Performed By: #### U AMIC #### [facility] [address] [address] [address] Hari Palmer Ketones Ql (U) Negative Normal NEGATIVE [facility] Comment on above: Performed By: #### U AMIC #### [facility] [address] [place] [address] Dr. Hari Palmer LEUKOCYTES SMALL Abnormal NEGATIVE [facility] Comment on above: Performed By: #### U AMIC #### [facility] [address] [place] [address] Dr. Hari Palmer MUCOUS NONE SEEN Normal NONE SEEN [facility] Comment on above: Performed By: #### U AMIC #### [facility] [address] [place] [address] Dr. Hari Palmer Nitrite Ql (U) Negative Normal NEGATIVE [facility] Comment on above: Performed By: #### U AMIC #### [facility] [address] [place] [address] Dr. Hari Palmer pH (U) 6.0 [pH] Normal 5-9 [facility] Comment on above: Performed By: #### U AMIC #### [facility] [address] [place] [address] Dr. Hari Palmer RBC 0-2 Normal 0-2 [facility] Comment on above: Performed By: #### U AMIC #### [facility] [address] [place] [address] Dr. Hari Palmer SPEC GRAVITY 1.010 Normal 1.005-<=1.02 5 [facility] Comment on above: Performed By: #### U AMIC #### [facility] [address] [address] [address] Hari Palmer UA PROTEIN Negative Normal NEGATIVE/ TRACE [facility] Comment on above: Performed By: #### U AMIC #### [facility] [address] [address] [address] Hari Palmer Urobilinogen Qn (U) 0.2 {Janice'U}/dL Normal 0.2 - 1. 0 [facility] Comment on above: Performed By: #### U AMIC #### [facility] [address] [address] [address] Hari Palmer WBC 5-10 Abnormal NONE SEEN [facility] Comment on above: Performed By: #### U AMIC #### [facility] [address] [place] [address] Dr. Hari Palmer URIC ACID SERUMon 12-03-2021 Urate [Mass/Vol] 4.6 mg/dL Normal 2.5-6.2 [facility] Comment on above: Performed By: #### M G, URIC, RENAL #### [facility] [address] [address] [address] Hari Palmer URINE T PROTEIN CREAT RATIOo n 12-03-2021 Protein (U) [Mass/Vol] 31.7 mg/dL Critically high <=12.0 [facility] Comment on above: Performed By: #### M G, URIC, RENAL #### [facility] [address] [address] [address] Hari Palmer UR PROT CREAT RAT 0.54 Normal [facility] Comment on above: Performed By: #### M G, URIC, RENAL #### [facility] [address] [place] [address] Dr. Hari Palmer URINE CREAT 59.03 mg/dL Normal 20.00-300.00 [facility] Comment on above: Performed By: #### M G, URIC, RENAL #### [facility] [address] [place] [address] Dr. Hari Palmer VITAMIN D 25 OHon 12-03-2021 VIT D 25-OH 38.1 ng/mL Normal [facility] Comment on above: Performed By: #### M G, URIC, RENAL #### [facility] [address] [place] [address] Dr. Hari Palmer VIT D RANGES SEE BELOW Normal [facility] Comment on above: Result Comment: <20 ng/mL Vit D deficient 20 - <30 ng/mL Vit D insufficient 30 - 100 ng/mL Vit D sufficient >100 ng/mL Potential Toxicity Performed By: #### M G, URIC, RENAL #### [facility] [address] [address] [address] Hari Palmer PTH INTACTon 09-03-2021 PTH, Intact 177 pg/mL Critically high 15-65 [facility] Comment on above: Performed By: #### P THINT #### [facility] [address] [place] [address] Dr. Hari Palmer CBC AUTO DIFFon 09-01-2021 BASO # 0.1 103/ul Normal 0.0-0.1 [facility] Comment on above: Performed By: #### M G, URIC, RENAL #### [facility] [address] [place] [address] Dr. Hari Palmer Basophils/100 WBC (Bld) 0.6 % Normal 0.2-2.0 [facility] Comment on above: Performed By: #### M G, URIC, RENAL #### [facility] [address] [place] [address] Dr. Hari Palmer EO # 0.3 103/ul Normal 0.0-0.7 [facility] Comment on above: Performed By: #### M G, URIC, RENAL #### [facility] [address] [place] [address] Dr. Hari Palmer Eosinophils/100 WBC (Bld) 3.5 % Normal 0.9-7.0 [facility] Comment on above: Performed By: #### M G, URIC, RENAL #### [facility] [address] [place] [address] Dr. Hari Palmer Erythrocyte distribution width (RBC) [Ratio] 13.8 % Normal 11.0-15.0 [facility] Comment on above: Performed By: #### M G, URIC, RENAL #### [facility] [address] [place] [address] Dr. Hari Palmer Hematocrit (Bld) [Volume fraction] 32.8 % Critically low 36.0-48.0 [facility] Comment on above: Performed By: #### M G, URIC, RENAL #### [facility] [address] [place] [address] Dr. Hari Palmer Hemoglobin (Bld) [Mass/Vol] 10.6 g/dL Critically low 12.0-16.0 [facility] Comment on above: Performed By: #### M G, URIC, RENAL #### [facility] [address] [place] [address] Dr. Hari Palmer IG # 0.14 10e3/ul Critically high 0.00-0.03 [facility] Comment on above: Performed By: #### M G, URIC, RENAL #### [facility] [address] [place] [address] Dr. Hari Palmer IG % 1.5 % Critically high 0.0-0.5 [facility] Comment on above: Performed By: #### M G, URIC, RENAL #### [facility] [address] [place] [address] Dr. Hari Palmer LYMPH # 1.8 103/ul Normal 1.2-3.8 [facility] Comment on above: Performed By: #### M G, URIC, RENAL #### [facility] [address] [place] [address] Dr. Hari Palmer Lymphocytes/100 WBC (Bld) 19.3 % Critically low 20.5-60.0 [facility] Comment on above: Performed By: #### M G, URIC, RENAL #### [facility] [address] [place] [address] Dr. Hari Palmer MANUAL DIFF REQ NO Normal [facility] Comment on above: Performed By: #### M G, URIC, RENAL #### [facility] [address] [place] [address] Dr. Hari Palmer MCH (RBC) [Entitic mass] 31.4 pg Normal 26.7-34.0 [facility] Comment on above: Performed By: #### M G, URIC, RENAL #### [facility] [address] [place] [address] Dr. Hari Palmer MCHC (RBC) [Mass/Vol] 32.3 g/dL Normal 29.9-35.2 [facility] Comment on above: Performed By: #### M G, URIC, RENAL #### [facility] [address] [place] [address] Dr. Hari Palmer MCV (RBC) [Entitic vol] 97.0 fL Normal 81.0-99.0 [facility] Comment on above: Performed By: #### M G, URIC, RENAL #### [facility] [address] [place] [address] Dr. Hari Palmer MONO # 0.4 103/ul Normal 0.3-0.8 [facility] Comment on above: Performed By: #### M G, URIC, RENAL #### [facility] [address] [place] [address] Dr. Hari Palmer Monocytes/100 WBC (Bld) 4.2 % Normal 1.7-12.0 [facility] Comment on above: Performed By: #### M G, URIC, RENAL #### [facility] [address] [place] [address] Dr. Hari Palmer NEUT # 6.5 103/ul Normal 1.4-6.5 [facility] Comment on above: Performed By: #### M G, URIC, RENAL #### [facility] [address] [place] [address] Dr. Hari Palmer Neutrophils/100 WBC (Bld) 70.9 % Normal 43.0-75.0 [facility] Comment on above: Performed By: #### M G, URIC, RENAL #### [facility] [address] [place] [address] Dr. Hari Palmer Platelet mean volume (Bld) [Entitic vol] 9.0 fL Critically low 9.5-13.5 [facility] Comment on above: Performed By: #### M G, URIC, RENAL #### [facility] [address] [address] [address] Hari Palmer PLT 289 103/ul Normal 150-450 [facility] Comment on above: Performed By: #### M G, URIC, RENAL #### [facility] [address] [place] [address] Dr. Hari Palmer RBC 3.38 106/ul Critically low 4.20-5.40 [facility] Comment on above: Performed By: #### M G, URIC, RENAL #### [facility] [address] [place] [address] Dr. Hari Palmer WBC 9.1 103/ul Normal 4.0-11.0 [facility] Comment on above: Performed By: #### M G, URIC, RENAL #### [facility] [address] [place] [address] Dr. Hari Palmer FERRITINon 09-01-2021 Ferritin [Mass/Vol] 204.0 ng/mL Critically high 6.2-137.0 [facility] Comment on above: Performed By: #### M G, URIC, RENAL #### [facility] [address] [place] [address] Dr. Hari Palmer IRON AND TIBCon 09-01-2021 % SATURATION 28.4 % Normal [facility] Comment on above: Performed By: #### M G, URIC, RENAL #### [facility] [address] [place] [address] Dr. Hari Palmer Iron [Mass/Vol] 80.0 ug/dL Normal 37.0-170.0 [facility] Comment on above: Performed By: #### M G, URIC, RENAL #### [facility] [address] [place] [address] Dr. Hari Palmer TIBC DIRECT 282.0 ug/dL Normal 261.0-497.0 [facility] Comment on above: Performed By: #### M G, URIC, RENAL #### [facility] [address] [place] [address] Dr. Hari Palmer MAGNESIUMon 09-01-2021 Magnesium [Mass/Vol] 2.2 mg/dL Normal 1.6-2.3 [facility] Comment on above: Performed By: #### U AMIC #### [facility] [address] [address] [address] Hari Palmer RENAL FUNCTION PANELon 09-01 Albumin [Mass/Vol] 3.5 g/dL Normal 3.5-5.0 [facility] Comment on above: Performed By: #### M G, URIC, RENAL #### [facility] [address] [address] [address] Hari Palmer Calcium [Mass/Vol] 8.7 mg/dL Normal 8.4-10.2 [facility] Comment on above: Performed By: #### M G, URIC, RENAL #### [facility] [address] [place] [address] Dr. Hari Palmer Chloride [Moles/Vol] 105 mmol/L Normal 98-107 [facility] Comment on above: Performed By: #### M G, URIC, RENAL #### [facility] [address] [address] [address] Hari Palmer CO2 [Moles/Vol] 21.1 mmol/L Critically low 22.0-30.0 [facility] Comment on above: Performed By: #### M G, URIC, RENAL #### [facility] [address] [address] [address] Hari Palmer Creatinine [Mass/Vol] 3.63 mg/dL Critically high 0.52-1.04 [facility] Comment on above: Performed By: #### M G, URIC, RENAL #### [facility] [address] [address] [address] Hari Palmer EGFR-AF AUSTRALIAN 16 mL/min/1.73m2 Critically low >=60 [facility] Comment on above: Performed By: #### M G, URIC, RENAL #### [facility] [address] [address] [address] Hari Palmer EGFR-NON AF AUSTRALIAN 14 mL/min/1.73m2 Critically low >=60 [facility] Comment on above: Performed By: #### M G, URIC, RENAL #### [facility] [address] [address] [address] Hari Palmer Glucose [Mass/Vol] 115 mg/dL Critically high 74-106 [facility] Comment on above: Performed By: #### M G, URIC, RENAL #### [facility] [address] [place] [address] Dr. Hari Palmer Phosphate [Mass/Vol] 4.6 mg/dL Critically high 2.5-4.5 [facility] Comment on above: Performed By: #### M G, URIC, RENAL #### [facility] [address] [place] [address] Dr. Hari Palmer Potassium [Moles/Vol] 4.2 mmol/L Normal 3.4-5.0 [facility] Comment on above: Performed By: #### M G, URIC, RENAL #### [facility] [address] [place] [address] Dr. Hari Palmer Sodium [Moles/Vol] 138 mmol/L Normal 137-145 [facility] Comment on above: Performed By: #### M G, URIC, RENAL #### [facility] [address] [place] [address] Dr. Hari Palmer Urea nitrogen [Mass/Vol] 50.0 mg/dL Critically high 7.0-17.0 [facility] Comment on above: Performed By: #### M G, URIC, RENAL #### [facility] [address] [place] [address] Dr. Hari Palmer UA RANDOM W/MICROSCOPICon BACTERIA SMALL Abnormal NONE SEEN [facility] Comment on above: Performed By: #### U AMIC #### [facility] [address] [place] [address] Dr. Hari Palmer Bilirubin Ql (U) Negative Normal NEGATIVE [facility] Comment on above: Performed By: #### U AMIC #### [facility] [address] [place] [address] Dr. Hari Palmer CAST NONE SEEN Normal NONE SEEN [facility] Comment on above: Performed By: #### U AMIC #### [facility] [address] [address] [address] Hari Palmer Clarity (U) CLEAR Normal CLEAR [facility] Comment on above: Performed By: #### U AMIC #### [facility] [address] [address] [address] Hari Palmer Color (U) LT. YELLOW Normal YELLOW [facility] Comment on above: Performed By: #### U AMIC #### [facility] [address] [place] [address] Dr. Hari Palmer Crystals LM Nom (Urine sed) NONE SEEN Normal NONE SEEN [facility] Comment on above: Performed By: #### U AMIC #### [facility] [address] [place] [address] Dr. Hari Palmer Epithelial cells LM Ql (Urine sed) MODERATE Abnormal NONE SEEN /RARE [facility] Comment on above: Performed By: #### U AMIC #### [facility] [address] [place] [address] Dr. Hari Palmer Glucose Ql (U) Negative Normal NEGATIVE [facility] Comment on above: Performed By: #### U AMIC #### [facility] [address] [place] [address] Dr. Hari Palmer Hemoglobin Ql (U) TRACE-INTACT Abnormal NEGATIVE [facility] Comment on above: Performed By: #### U AMIC #### [facility] [address] [address] [address] Hari Palmer Ketones Ql (U) Negative Normal NEGATIVE [facility] Comment on above: Performed By: #### U AMIC #### [facility] [address] [address] [address] Hari Palmer LEUKOCYTES Negative Normal NEGATIVE [facility] Comment on above: Performed By: #### U AMIC #### [facility] [address] [place] [address] Dr. Hari Palmer MUCOUS NONE SEEN Normal NONE SEEN [facility] Comment on above: Performed By: #### U AMIC #### [facility] [address] [place] [address] Dr. Hari Palmer Nitrite Ql (U) Negative Normal NEGATIVE [facility] Comment on above: Performed By: #### U AMIC #### [facility] [address] [place] [address] Dr. Hari Palmer pH (U) 6.0 [pH] Normal 5-9 [facility] Comment on above: Performed By: #### U AMIC #### [facility] [address] [place] [address] Dr. Hari Palmer RBC 2-5 Abnormal 0-2 [facility] Comment on above: Performed By: #### U AMIC #### [facility] [address] [place] [address] Dr. Hari Palmer SPEC GRAVITY 1.010 Normal 1.005-<=1.02 5 [facility] Comment on above: Performed By: #### U AMIC #### [facility] [address] [place] [address] Dr. Hari Palmer UA PROTEIN Negative Normal NEGATIVE/ TRACE [facility] Comment on above: Performed By: #### U AMIC #### [facility] [address] [place] [address] Dr. Hari Palmer Urobilinogen Qn (U) 0.2 {Janice'U}/dL Normal 0.2 - 1. 0 [facility] Comment on above: Performed By: #### U AMIC #### [facility] [address] [place] [address] Dr. Hari Palmer WBC 2-5 Abnormal NONE SEEN [facility] Comment on above: Performed By: #### U AMIC #### [facility] [address] [place] [address] Dr. Hari Palmer URIC ACID SERUMon 09-01-2021 Urate [Mass/Vol] 4.9 mg/dL Normal 2.5-6.2 [facility] Comment on above: Performed By: #### U AMIC #### [facility] [address] [place] [address] Dr. Hari Palmer URINE T PROTEIN CREAT RATIOo n 09-01-2021 Protein (U) [Mass/Vol] 22.2 mg/dL Critically high <=12.0 [facility] Comment on above: Performed By: #### M Edy, URIC, RENAL #### [facility] [address] [place] [address] Dr. Hari Palmer UR PROT CREAT RAT 0.47 Normal [facility] Comment on above: Performed By: #### M Edy URIC, RENAL #### [facility] [address] [place] [address] Dr. Hari Palmer URINE CREAT 46.89 mg/dL Normal 20.00-300.00 [facility] Comment on above: Performed By: #### M Edy URIC, RENAL #### [facility] [address] [place] [address] Dr. Hari Palmer VITAMIN D 25 OHon 09-01-2021 VIT D 25-OH 40.5 ng/mL Normal [facility] Comment on above: Performed By: #### M Edy URIC, RENAL #### [facility] [address] [place] [address] Dr. Hari Palmer VIT D RANGES SEE BELOW Normal [facility] Comment on above: Result Comment: <20 ng/mL Vit D deficient 20 - <30 ng/mL Vit D insufficient 30 - 100 ng/mL Vit D sufficient >100 ng/mL Potential Toxicity Performed By: #### M Edy URIC, RENAL #### [facility] [address] [place] [address] Dr. Hari Palmer CNOVon 03-30-2021 CNOV Office Visit (NEPHMN ) ----- MANDEEP PURI ([id number]) 1975 F Date Time Provider Department 03/30/21 9:20 AM PERRI BARRETT NEPHCHET During your visit today, we recorded the following information about you: Temperature Pulse Blood pressure Weight 98.2 degrees 75/minute 122/77 93 kg Height 1.549 m Perri Barrett MD 03/30/2021 10:25 AM Signed Mrs. Puri is a 45 year old from [place] here with her hyusbandEvan seen at their request for my opinion regarding ADPKD. sees Nephrol at home. Advised to have AV Fistula placed to start dialysis 1) ADPKD Dx 2001 Pre-eclampsia with first/ only in 2002 2017 - sepsis Several Cyst ruptures Pain at some times with activity No stones No gross hematuria Fam Hx - bro, sis, father, grandfather, aunts and uncles Aunt and uncle ESRD about age 55 yrs, both received Tx Fa - of CAD 2) COVID - 2019 3) Fibromyalgia 4) Gout - sees Rheum. 2-3 attacks LT great toe. on Uloric. 5) anemia On po iron. Hb rising No past medical history on file. 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 Decaf TEA: occas SODA:occas ALCOHOL:no TOBACCO USE: no EXERCISE:no DIET: decreased dairy There is no problem list on file for this patient. Current Outpatient Medications Medication Sig - DULoxetine (CYMBALTA) 60 mg capsule Duloxetine Active 30 MG Oral Daily January 19, 2019 6:40am - febuxostat (ULORIC) 40 mg tab Febuxostat Active 20 MG Oral Daily August 02, 2019 5:51pm - ferrous sulfate 325 mg (65 mg iron) EC tablet Take 325 mg by mouth. - lisinopril (ZESTRIL, PRINIVIL) 20 mg tablet Lisinopril Active 20 MG Oral Daily August 05, 2019 4:31pm - SODIUM BICARBONATE 0.6 MOLAR - furosemide (LASIX) 20 mg tablet Take 20 mg by mouth once daily. No current facility-administered medications for this visit. Allergies: Review of patient's allergies indicates: No Known Allergies. REVIEW OF SYSTEMS: Pertinent positives and negatives in HPI. All other systems reviewed and negative. BP 122/77 Pulse 75 Temp 36.8 ?C (98.2 ?F) (Tympanic) Ht 154.9 cm (5' 1 ) Wt 93 kg (205 lb) BMI 38.73 kg/m? EXAM GENERAL: WD,WN, NAD SKIN: Normal color, turgor. No rashes, lesions HEAD: Sclera anicteric, conjunctiva non inflamed, oral mucosa moist, no lesions NECK: No bruits, adenopathy, masses. Supple. No JVD LUNGS: Clear bilat CARDIOVASC: RRR no murmurs, rubs, or gallops. ABDOM: Soft, no tenderness, no organomegaly. Kidneys palpable EXT: No edema. 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 Polycystin 1. 78% of total larger kidneys, ESRD, 55y/o PKD2 - later cysts, less severe, grow faster.Chromosome #4 PC 2. 14% of total.Less s Aunt. Uncle with ESRD - in age of 70 y/o.evere, ESRD Around 55 y/o 2 with transplants ISSUES Fam Hx / # cysts / age of pt Sx Thirst / Polyuria /Decr conc ability HTN / H-uria (35-50%) / creat / UTIs / Flank pain / Stones (20% - uric acid) / Proteinuria / Ca-rare PREDICTORS 1 > 2 Family ESRD < 58 y/o TKV - MRI > 600 cc/m , US ->16.5 cm HTN Male Urologic Sx before 35 y/o (gross hematuria, cyst infection, flank pain) EGFR ( decline > 5 ml/min.1.73 per yr) Age Dx Creat Proteinuria Na intake Low weight Incr LDL, uric acid, FGF23, LVMI Extra-renal - Intracranial aneurysms (VASQUEZ), biliary disease,tics, valve defects TREATMENT - reviewed with her 1) Fluid intake 3L+ Monitor U Osm <280 mOsm/L 2) Avoid caffeine 3) CEI / Statin / Tolvaptan 4) TKV on CT/ MRI >350 ml? 5) Cerebral MRI time of flight? 6) Low weight 7) Family hx 8) Low protein diet 9) Low salt diet - 2 gm 10) MTOR ? sirolimus (rapamycin) 4 weeks Referring Provider: YANETH MUÑOZ [[id number]] Allergies As of Date: 03/30/2021 Noted Allergy Reaction ALLOPURINOL 08/02/2019 4 - Hives Date Reviewed: 03/30/2021 Reviewed by: Perri Barrett MD - Fully Assessed Reason for Visit: Consult [173] Visit Diagnosis:ADPKD (autosomal dominant polycystic kidney disease) [Q61.2] Prescriptions as of 03/30/2021 Sig: DULOXETINE 60 MG CAPSULE,GISSEL* Duloxetine Active 30 MG Oral * FEBUXOSTAT 40 MG TABLET Febuxostat Active 20 MG Oral * FERROUS SULFATE 325 MG (65 MG* Take 325 mg by mouth. (more content not included)... Normal [facility] Urinalysison 03-30-2021 Bilirubin, Urine Negative Normal Negative [facility] Comment on above: Performed By: #### U A #### [facility] [address] [place], [place] [address] Clarity (U) Clear Normal Clear [facility] Comment on above: Performed By: #### U A #### [facility] [address] [place], [place] [address] Color (U) Colorless Critically abnormal Yellow [facility] Comment on above: Performed By: #### U A #### [facility] [place], [place] [address] Comments SEE COMMENT Normal [facility] Comment on above: Result Comment: Micr oscopic not warranted Performed By: #### U A #### [facility] [address] [place], [place] [address] Glucose Ql (U) Trace Critically abnormal Negative [facility] Comment on above: Performed By: #### U A #### [facility] [address] [place], [place] [address] Hemoglobin/Blood,Ur Negative Normal Negative [facility] Comment on above: Performed By: #### U A #### [facility] [address] [place], [place] [address] Ketones Ql (U) Negative Normal Negative [facility] Comment on above: Performed By: #### U A #### [facility] [address] [place], [place] [address] Leukest Negative Normal Negative [facility] Comment on above: Performed By: #### U A #### [place] [id number] [place] [address] Nitrite Ql (U) Negative Normal Negative [facility] Comment on above: Performed By: #### U A #### [facility] [address] [place] [address] pH (U) 6.5 [pH] Normal 5.0-8.0 [facility] Comment on above: Performed By: #### U A #### [place] [address] [place], [place] [address] Protein, Urine Negative Normal Negative [facility] Comment on above: Performed By: #### U A #### [facility] [address] [place], [place] [address] Specific [place], Ur 1.008 Normal 1.005-1.030 [facility] Comment on above: Performed By: #### U A #### [facility] [address] [place], [place] [address] Urine Codi Comment SEE COMMENT Normal [facility] Comment on above: Result Comment: N/A Performed By: #### U A #### [place] [address] [place], [place] [address] Urobilinogen (U) [Mass/Vol] Negative Normal Negative [facility] Comment on above: Performed By: #### U A #### [facility] [address] [place], [place] [address] Coding Summary.on 04-21-2020 Coding Summary. CODING DATE: 020 FINAL [facility] STATUS: Home (Routine DC) PAYOR: [facility] [place] ADMIT DX: REASON FOR VISIT DX: Z20.828 Contact with and (suspected) exposure to other viral communicable diseases FINAL DX: PRINCIPAL: Z20.828 Contact with and (suspected) exposure to other viral communicable diseases SECONDARY: PYMT PROC APC STAT DESCRIPTION DOCTOR NAME DATE NOTE: The code number assigned matches the documented diagnosis and / or procedure in the patient's chart. However, the narrative phrase printed from the coding software may appear abbreviated, or result in slightly different terminology. Coded By: Teresa Pierce CphT Date Saved: 04/21/2020 05:17 pm Normal [facility] Phys[facility] Orderon 04-21-2020 Physician Order [id number] Normal [facility] 04-12-2020 ALT [Catalytic activity/Vol] 14 U/L Normal 7 - 45 [facility] Comment on above: Result Comment: Kelsea ents treated with Sulfasalazine may generate falsely decreased results for ALT. Performed By: #### A LT #### [facility] [address] [place] [address] Ronald 04-12-2020 AST [Catalytic activity/Vol] 16 U/L Normal 9 - 39 [facility] Comment on above: Performed By: #### A ST #### [facility] [address] [place] [address] CREATININEon 04-12-2020 Creatinine [Mass/Vol] 2.83 mg/dL High 0.50 - 1.05 [facility] Comment on above: Performed By: #### C REAT #### [facility] [address] [place] [address] Creatinine [Mass/Vol] 18 mL/min/1.73m2 Abnormal >60 [facility] Comment on above: Performed By: #### C REAT #### [facility] [address] [place] [address] Creatinine [Mass/Vol] 22 mL/min/1.73m2 Abnormal >60 [facility] Comment on above: Result Comment: CALC ULATIONS OF ESTIMATED GFR ARE PERFORMED USING THE MDRD STUDY EQUATION FOR THE IDMS-TRACEABLE CREATININE METHODS. CLIN CHEM 2007;53:766-72 Performed By: #### C REAT #### [facility] [address] [place] [address] URIC ACIDon 04-12-2020 Urate [Mass/Vol] 5.2 mg/dL Normal 2.3 - 6.7 [facility] Comment on above: Result Comment: Beti puncture immediately after or during the administration of Metamizole may lead to falsely low results. Testing should be performed immediately prior to Metamizole dosing. Performed By: #### U DICK #### [facility] [address] [place] [address] URIC ACIDon 02-11-2020 Urate [Mass/Vol] 8.2 mg/dL High 2.3 - 6.7 [facility] Comment on above: Result Comment: Beti puncture immediately after or during the administration of Metamizole may lead to falsely low results. Testing should be performed immediately prior to Metamizole dosing. Performed By: #### U DICK #### [facility] [address] [place] [address] Cult,Urineon 08-04-2019 Cult,Urine Specimen Description .CLEAN CATCH URINE Special Requests NOT REPORTED Culture ESCHERICHIA COLI >[id number] CFU/ML Report Status FINAL 08/04/2019 SUSCEPTIBILITY Organism ESCHERICHIA COLI Method CODI Amikacin NOT REPORTED Ampicillin 4 SUSCEPTIBLE Ampicillin/Sulbactam NOT REPORTED Aztreonam <=1 SUSCEPTIBLE Cefazolin <=4 SUSCEPTIBLE Cefazolin sensitivity results can be used to predict the effectiveness of oral cephalosporins (eg. Cephalexin) in uncomplicated Urinary Tract Infections due to E. coli, K. pneumoniae, and P. mirabilis Cefepime NOT REPORTED Ceftriaxone <=1 SUSCEPTIBLE Ciprofloxacin <=0.25 SUSCEPTIBLE Ertapenem NOT REPORTED ESBL NEGATIVE Gentamicin <=1 SUSCEPTIBLE Meropenem NOT REPORTED Nitrofurantoin <=16 SUSCEPTIBLE Tigecycline NOT REPORTED Tobramycin <=1 SUSCEPTIBLE Trimethoprim/Sulfa <=20 SUSCEPTIBLE Piperacillin/Tazobactam <=4 SUSCEPTIBLE Normal [facility] Comment on above: Performed By: #### D CITLALY, LIP, CMPX, TROPI, BNP, CDP, PT #### [facility] [address] [place] [address] Urogynaecologist: Sami Dominguez MD Brain Natri. Peptideon 08-02 Natriuretic peptide B (Bld) [Mass/Vol] 152 pg/mL Normal <300 [facility] Comment on above: Result Comment: Pro- BNP results cannot be compared to BNP results. Performed By: #### D CITLALY, LIP, CMPX, TROPI, BNP, CDP, PT #### [facility] [address] [place] [address] Urogynaecologist: Sami Dominguez MD Natriuretic peptide B (Bld) [Mass/Vol] Pro-BNP Reference Range: Normal [facility] Comment on above: Result Comment: Rule Out: <300 Parra Zone: Age <50 300-450 Age 50-75 300-900 Age >75 300-1800 Usually represents mild to moderate HF but other cardiopulmonary causes cannot be ruled out. Rule In: Age <50 >450 Age 50-75 >900 Age >75 >1800 Performed By: #### D CITLALY, LIP, CMPX, TROPI, BNP, CDP, PT #### [facility] [address] [place] [address] Urogynaecologist: Sami Dominguez MD Brain Natriuretic Peptideon 08-02-2019 Natriuretic peptide B (Bld) [Mass/Vol] 152 pg/mL <300 [place], [place] Comment on above: Pro-BNP results eric ot be compared to BNP results. Natriuretic peptide B (Bld) [Mass/Vol] Pro-BNP Reference Range: [place], [place] Comment on above: Rule Out: <300 Parra Zone: Age <50 300-450 Age 50-75 300-900 Age >75 300-1800 Usually represents mild to moderate HF but other cardiopulmonary causes cannot be ruled out. Rule In: Age <50 >450 Age 50-75 >900 Age >75 >1800 CBC Auto Differentialon 10-2 Basophils (Bld) [#/Vol] 0.00 10*3/uL [place] Basophils/100 WBC (Bld) 0 % 0 - 2 % [place] Differential Type NOT REPORTED [place] Eosinophils (Bld) [#/Vol] 0.08 10*3/uL [place] Eosinophils/100 WBC (Bld) 1 % 1 - 4 % [place] Erythrocyte distribution width (RBC) [Ratio] 13.2 % 11.8 - 14.4 % [place] Hematocrit (Bld) [Volume fraction] 33.7 % Low 36.3 - 47.1 % [place] Hemoglobin (Bld) [Mass/Vol] 10.7 g/dL Low 11.9 - 15.1 g/dL [place] Immature granulocytes (Bld) [#/Vol] 0 % 0 [place] Immature granulocytes (Bld) [#/Vol] 0.00 10*3/uL [place] Interpretation and review of laboratory results Abnormal [place] Lymphocytes (Bld) [#/Vol] 0.90 10*3/uL Low [place] Lymphocytes/100 WBC (Bld) 12 % Low 24 - 43 % [place] MCH (RBC) [Entitic mass] 30.2 pg 25.2 - 33.5 pg [place] MCHC (RBC) [Mass/Vol] 31.8 g/dL 28.4 - 34.8 g/dL [place] MCV (RBC) [Entitic vol] 95.2 fL 82.6 - 102.9 fL [place] Monocytes (Bld) [#/Vol] 0.00 10*3/uL Low [place] Monocytes/100 WBC (Bld) 0 % Low 3 - 12 % [place] Morphology [place] (Bld) [Interp] Normal [place] Platelet mean volume (Bld) [Entitic vol] 8.6 fL 8.1 - 13.5 fL [place] Platelets (Bld) [#/Vol] NOT REPORTED [place] Platelets (Bld) [#/Vol] 335 10*3/uL [place] RBC (Bld) [#/Vol] 3.54 10*6/uL Low 3.95 - 5.1 1 m/uL [place] RBC morphology finding Nom (Bld) NOT REPORTED [place] Segmented neutrophils/100 WBC (Bld) 87 % High 36 - 65 % [place] Segs Absolute 6.52 [place] WBC (Bld) [#/Vol] 7.5 10*3/uL [place] WBC (Bld) [#/Vol] 0.0 10*3/uL 0.0 per 10 0 WBC [place] WBC Morphology NOT REPORTED [place] CBC with Diffon 08-02-2019 Abs. Basophil 0.00 k/uL Normal 0.0-0.2 [facility] Comment on above: Performed By: #### D CITLALY, LIP, CMPX, TROPI, BNP, CDP, PT #### [address] [place] [address] Urogynaecologist: Sami Dominguez MD Abs.Imm.Granulocyte 0.00 k/uL Normal 0.00-0.30 [facility] Comment on above: Performed By: #### D CITLALY, LIP, CMPX, TROPI, BNP, CDP, PT #### [facility] [address] [place] [address] Urogynaecologist: Sami Dominguez MD Abs.Neutrophil (Seg) 6.52 k/uL Normal 1.50-8.10 [facility] Comment on above: Performed By: #### D CITLALY, LIP, CMPX, TROPI, BNP, CDP, PT #### [address] [place] [address] Urogynaecologist: Sami Dominguez MD Basophils/100 WBC (Bld) 0 % Normal 0-2 [facility] Comment on above: Performed By: #### D CITLALY, LIP, CMPX, TROPI, BNP, CDP, PT #### [facility] [address] [place] [address] Urogynaecologist: Sami Dominguez MD Eosinophils (Bld) [#/Vol] 0.08 10*3/uL Normal 0.00-0.44 [facility] Comment on above: Performed By: #### D CITLALY, LIP, CMPX, TROPI, BNP, CDP, PT #### [facility] [address] [place], [facility]83 Urogynaecologist: Sami Dominguez MD Eosinophils/100 WBC (Bld) 1 % Normal 1-4 [facility] Comment on above: Performed By: #### D CITLALY, LIP, CMPX, TROPI, BNP, CDP, PT #### [facility] [address] [place] [address] Urogynaecologist: Sami Dominguez MD Immature granulocytes (Bld) [#/Vol] 0 % Normal 0 [facility] Comment on above: Performed By: #### D CITLALY, LIP, CMPX, TROPI, BNP, CDP, PT #### [address] [place], [facility]83 Urogynaecologist: Sami Dominguez MD Lymphocytes (Bld) [#/Vol] 0.90 10*3/uL Low 1.10-3.70 [facility] Comment on above: Performed By: #### D CITLALY, LIP, CMPX, TROPI, BNP, CDP, PT #### [facility] [address] [place] [address] Urogynaecologist: Sami Dominguez MD Lymphocytes/100 WBC (Bld) 12 % Low 24-43 [facility] Comment on above: Performed By: #### D CITLALY, LIP, CMPX, TROPI, BNP, CDP, PT #### [facility] [address] [place], [facility]83 Urogynaecologist: Sami Dominguez MD Monocytes (Bld) [#/Vol] 0.00 10*3/uL Low 0.10-1.20 [facility] Comment on above: Performed By: #### D CITLALY, LIP, CMPX, TROPI, BNP, CDP, PT #### [facility] [address] [place], [place] [address] Urogynaecologist: Sami Dominguez MD Monocytes/100 WBC (Bld) 0 % Low 3-12 [facility] Comment on above: Performed By: #### D CITLALY, LIP, CMPX, TROPI, BNP, CDP, PT #### [address] [place] [address] Urogynaecologist: Sami Dominguez MD Morphology Geovany (Bld) [Interp] Normal Normal [facility] Comment on above: Performed By: #### D CITLALY, LIP, CMPX, TROPI, BNP, CDP, PT #### [address] [place], [place] [address] Urogynaecologist: Sami Dominguez MD Neutrophil (Seg) 87 % High 36-65 [facility] Comment on above: Performed By: #### D CITLALY, LIP, CMPX, TROPI, BNP, CDP, PT #### [address] [place], [place] [address] Urogynaecologist: Sami Dominguez MD Erythrocyte distribution width (RBC) [Ratio] 13.2 % Normal 11.8-14.4 [facility] Comment on above: Performed By: #### D CITLALY, LIP, CMPX, TROPI, BNP, CDP, PT #### [facility] [address] [place], [facility]83 Urogynaecologist: Sami Dominguez MD Hematocrit (Bld) [Volume fraction] 33.7 % Low 36.3-47.1 [facility] Comment on above: Performed By: #### D CITLALY, LIP, CMPX, TROPI, BNP, CDP, PT #### [facility] [address] [place] [address] Urogynaecologist: Sami Dominguez MD Hemoglobin (Bld) [Mass/Vol] 10.7 g/dL Low 11.9-15.1 [facility] Comment on above: Performed By: #### D CITLALY, LIP, CMPX, TROPI, BNP, CDP, PT #### [facility] [address] [place], [place] [address] Urogynaecologist: Sami Dominguez MD MCH (RBC) [Entitic mass] 30.2 pg Normal 25.2-33.5 [facility] Comment on above: Performed By: #### D CITLALY, LIP, CMPX, TROPI, BNP, CDP, PT #### [address] [place], [facility]83 Urogynaecologist: Sami Dominguez MD MCHC (RBC) [Mass/Vol] 31.8 g/dL Normal 28.4-34.8 [facility] Comment on above: Performed By: #### D CITLALY, LIP, CMPX, TROPI, BNP, CDP, PT #### [address] [place], [facility]83 Urogynaecologist: Sami Dominguez MD MCV (RBC) [Entitic vol] 95.2 fL Normal 82.6-102.9 [facility] Comment on above: Performed By: #### D CITLALY, LIP, CMPX, TROPI, BNP, CDP, PT #### [address] [place] [address] Urogynaecologist: Sami Dominguez MD NRBC Automated 0.0 per 100 WBC Normal 0.0 [facility] Comment on above: Performed By: #### D CITLALY, LIP, CMPX, TROPI, BNP, CDP, PT #### [facility] [address] [place], [place] [id number] Urogynaecologist: Sami Dominguez MD Platelet mean volume (Bld) [Entitic vol] 8.6 fL Normal 8.1-13.5 [facility] Comment on above: Performed By: #### D CITLALY, LIP, CMPX, TROPI, BNP, CDP, PT #### [facility] [address] [place], [facility]83 Urogynaecologist: Sami Dominguez MD Platelets (Bld) [#/Vol] 335 10*3/uL Normal 138-453 [facility] Comment on above: Performed By: #### D CITLALY, LIP, CMPX, TROPI, BNP, CDP, PT #### [facility] [address] [place], [facility]83 Urogynaecologist: Sami Dominguez MD RBC (Bld) [#/Vol] 3.54 10*6/uL Low 3.95-5.11 [facility] Comment on above: Performed By: #### D CITLALY, LIP, CMPX, TROPI, BNP, CDP, PT #### [address] [place], [facility]83 Urogynaecologist: Sami Dominguez MD WBC (Bld) [#/Vol] 7.5 10*3/uL Normal 3.5-11.3 [facility] Comment on above: Performed By: #### D CITLALY, LIP, CMPX, TROPI, BNP, CDP, PT #### [facility] [address] [place], [place] [id number] Urogynaecologist: Sami Dominguez MD Auto Diff Performed NOT REPORTED Normal [facility] Comment on above: Performed By: #### D CITLALY, LIP, CMPX, TROPI, BNP, CDP, PT #### [facility] [address] [place], [place] [id number] Urogynaecologist: Sami Dominguez MD Platelets (Bld) [#/Vol] NOT REPORTED Normal [facility] Comment on above: Performed By: #### D CITLALY, LIP, CMPX, TROPI, BNP, CDP, PT #### [facility] [address] [place] [address] Urogynaecologist: Sami Dominguez MD RBC morphology finding Nom (Bld) NOT REPORTED Normal [facility] Comment on above: Performed By: #### D CITLALY, LIP, CMPX, TROPI, BNP, CDP, PT #### [facility] [address] [place] [address] Urogynaecologist: Sami Dominguez MD WBC Morphology NOT REPORTED Normal [facility] Comment on above: Performed By: #### D CITLALY, LIP, CMPX, TROPI, BNP, CDP, PT #### [address] [place] [address] Urogynaecologist: Sami Dominguez MD CTA CHEST ABDOMEN PELVIS W C ONTRASTon 08-02-2019 CTA CHEST ABDOMEN PELVIS W CONTRAST EXAMINATION: CTA OF THE CHEST, ABDOMEN AND PELVIS WITH CONTRAST, 08/02/2019 12:39 pm TECHNIQUE: CTA of the chest, abdomen and pelvis was performed after the administration of intravenous contrast. Multiplanar reformatted images are provided for review. MIP images are provided for review. Dose modulation, iterative reconstruction, and/or weight based adjustment of the mA/kV was utilized to reduce the radiation dose to as low as reasonably achievable. COMPARISON: None. HISTORY: ORDERING SYSTEM PROVIDED HISTORY: CP radiating to legs, r/o dissection TECHNOLOGIST PROVIDED HISTORY: CP radiating to legs, r/o dissection FINDINGS: CTA CHEST: Mediastinum: No evidence for mediastinal hematoma. Visualized portions of the thyroid gland are unremarkable. No evidence for mediastinal or hilar adenopathy. The heart is normal in size without pericardial fluid collection. Aorta: No evidence for aneurysmal dilatation or dissection of the thoracic aorta. Lungs: Lungs are clear without focal airspace consolidation, pleural effusion, or pneumothorax. No discrete pulmonary nodules or masses. Central airways are patent and clear. CTA ABDOMEN/PELVIS: Organs: Multiple too small to characterize low-attenuation lesions of the right hepatic lobe. The gallbladder, pancreas, and spleen are unremarkable. Retroperitoneum: Adrenal glands normal in size configuration. Numerous renal cysts are identified bilaterally, compatible with polycystic renal disease. Ureters are unobstructed. Bowel: Small hiatal hernia. Small bowel is normal in caliber. No bowel obstruction. There is subtle inflammation adjacent to the descending colon. No free intraperitoneal air or fluid identified. Appendix is not clearly visualized. Pelvis: 4.1 x 3.5 cm left adnexal cyst. Uterus is absent. Aorta: The abdominal aorta, celiac axis, SMA, renal arteries, GLEN, and iliac arteries are normal in course and caliber without aneurysmal dilatation or dissection. IMPRESSION: No evidence for aneurysmal dilatation or dissection of the aorta or its branches. Findings most compatible with polycystic kidney disease. Subtle inflammation adjacent to the descending colon is suggestive of subtle colitis. No perforation or abscess formation. No free intraperitoneal air or fluid. 4.1 cm benign appearing ovarian cyst No follow-up imaging is recommended. Reference: J Am Danika Radiol 2013;10:675-681 Interpreted by: Yunier Yang MD Signed by: Yunier Yang MD 08/02/19 Final result Normal [facility] [place], p[place] Incoming Radiant Results From [employer] - 08/02/2019 1:21 PM EDT EXAMINATION: CTA OF THE CHEST, ABDOMEN AND PELVIS WITH CONTRAST, 08/02/2019 12:39 pm TECHNIQUE: CTA of the chest, abdomen and pelvis was performed after the administration of intravenous contrast. Multiplanar reformatted images are provided for review. MIP images are provided for review. Dose modulation, iterative reconstruction, and/or weight based adjustment of the mA/kV was utilized to reduce the radiation dose to as low as reasonably achievable. COMPARISON: None. HISTORY: ORDERING SYSTEM PROVIDED HISTORY: CP radiating to legs, r/o dissection TECHNOLOGIST PROVIDED HISTORY: CP radiating to legs, r/o dissection FINDINGS: CTA CHEST: Mediastinum: No evidence for mediastinal hematoma. Visualized portions of the thyroid gland are unremarkable. No evidence for mediastinal or hilar adenopathy. The heart is normal in size without pericardial fluid collection. Aorta: No evidence for aneurysmal dilatation or dissection of the thoracic aorta. Lungs: Lungs are clear without focal airspace consolidation, pleural effusion, or pneumothorax. No discrete pulmonary nodules or masses. Central airways are patent and clear. CTA ABDOMEN/PELVIS: Organs: Multiple too small to characterize low-attenuation lesions of the right hepatic lobe. The gallbladder, pancreas, and spleen are unremarkable. Retroperitoneum: Adrenal glands normal in size configuration. Numerous renal cysts are identified bilaterally, compatible with polycystic renal disease. Ureters are unobstructed. Bowel: Small hiatal hernia. Small bowel is normal in caliber. No bowel obstruction. There is subtle inflammation adjacent to the descending colon. No free intraperitoneal air or fluid identified. Appendix is not clearly visualized. Pelvis: 4.1 x 3.5 cm left adnexal cyst. Uterus is absent. Aorta: The abdominal aorta, celiac axis, SMA, renal arteries, GLEN, and iliac arteries are normal in course and caliber without aneurysmal dilatation or dissection. IMPRESSION: No evidence for aneurysmal dilatation or dissection of the aorta or its branches. Findings most compatible with polycystic kidney disease. Subtle inflammation adjacent to the descending colon is suggestive of subtle colitis. No perforation or abscess formation. No free intraperitoneal air or fluid. 4.1 cm benign appearing ovarian cyst No follow-up imaging is recommended. Reference: J Am Danika Radiol 2013;10:[id number] [place], [place] EXAMINATION: CTA OF THE CHEST, ABDOMEN AND PELVIS WITH CONTRAST, 08/02/2019 12:39 pm TECHNIQUE: CTA of the chest, abdomen and pelvis was performed after the administration of intravenous contrast. Multiplanar reformatted images are provided for review. MIP images are provided for review. Dose modulation, iterative reconstruction, and/or weight based adjustment of the mA/kV was utilized to reduce the radiation dose to as low as reasonably achievable. COMPARISON: None. HISTORY: ORDERING SYSTEM PROVIDED HISTORY: CP radiating to legs, r/o dissection TECHNOLOGIST PROVIDED HISTORY: CP radiating to legs, r/o dissection FINDINGS: CTA CHEST: Mediastinum: No evidence for mediastinal hematoma. Visualized portions of the thyroid gland are unremarkable. No evidence for mediastinal or hilar adenopathy. The heart is normal in size without pericardial fluid collection. Aorta: No evidence for aneurysmal dilatation or dissection of the thoracic aorta. Lungs: Lungs are clear without focal airspace consolidation, pleural effusion, or pneumothorax. No discrete pulmonary nodules or masses. Central airways are patent and clear. CTA ABDOMEN/PELVIS: Organs: Multiple too small to characterize low-attenuation lesions of the right hepatic lobe. The gallbladder, pancreas, and spleen are unremarkable. Retroperitoneum: Adrenal glands normal in size configuration. Numerous renal cysts are identified bilaterally, compatible with polycystic renal disease. Ureters are unobstructed. Bowel: Small hiatal hernia. Small bowel is normal in caliber. No bowel obstruction. There is subtle inflammation adjacent to the descending colon. No free intraperitoneal air or fluid identified. Appendix is not clearly visualized. Pelvis: 4.1 x 3.5 cm left adnexal cyst. Uterus is absent. Aorta: The abdominal aorta, celiac axis, SMA, renal arteries, GLEN, and iliac arteries are normal in course and caliber without aneurysmal dilatation or dissection. [place] No evidence for aneurysmal dilatation or dissection of the aorta or its branches. Findings most compatible with polycystic kidney disease. Subtle inflammation adjacent to the descending colon is suggestive of subtle colitis. No perforation or abscess formation. No free intraperitoneal air or fluid. 4.1 cm benign appearing ovarian cyst No follow-up imaging is recommended. Reference: J Am Danika Radiol 2013;10:[id number] [place], [place] Comp Metabolic Pr/rfx MGon 1 (cont.) Normal [facility] Comment on above: Result Comment: Aver age GFR for 40-49 years old: 99 mL/min/1.73sq m Chronic Kidney Disease: <60 mL/min/1.73sq m Kidney failure: <15 mL/min/1.73sq m eGFR calculated using average adult body mass. Additional eGFR calculator available at: http://www.[employer]/multiple_crcl_2012.htm Performed By: #### D CITLALY, LIP, CMPX, TROPI, BNP, CDP, PT #### [facility] [address] [address] Urogynaecologist: Sami Dominguez MD Albumin [Mass/Vol] 4.4 g/dL Normal 3.5-5.2 [facility] Comment on above: Performed By: #### D CITLALY, LIP, CMPX, TROPI, BNP, CDP, PT #### [facility] [address] [place] [address] Urogynaecologist: Sami Dominguez MD Albumin/Globulin [Mass ratio] 1.0 {ratio} Normal 1.0-2.5 [facility] Comment on above: Performed By: #### D CITLALY, LIP, CMPX, TROPI, BNP, CDP, PT #### [facility] [address] [place], [place] [id number] Urogynaecologist: Sami Dominguez MD Alkaline Phos 98 U/L Normal 35-104 [facility] Comment on above: Performed By: #### D CITLALY, LIP, CMPX, TROPI, BNP, CDP, PT #### [facility] [address] [place], [place] [id number] Urogynaecologist: Sami Dominguez MD ALT [Catalytic activity/Vol] 16 U/L Normal 5-33 [facility] Comment on above: Performed By: #### D CITLALY, LIP, CMPX, TROPI, BNP, CDP, PT #### [address] [place], [place] [id number] Urogynaecologist: Sami Dominguez MD Anion gap [Moles/Vol] 18 mmol/L High 9-17 [facility] Comment on above: Performed By: #### D CITLALY, LIP, CMPX, TROPI, BNP, CDP, PT #### [address] [place], [place] [id number] Urogynaecologist: Sami Dominguez MD AST [Catalytic activity/Vol] 18 U/L Normal <32 [facility] Comment on above: Performed By: #### D CITLALY, LIP, CMPX, TROPI, BNP, CDP, PT #### [facility] [address] [place], [place] [id number] Urogynaecologist: Sami Dominguez MD Bilirubin Ql (U) 0.31 mg/dL Normal 0.3-1.2 [facility] Comment on above: Performed By: #### D CITLALY, LIP, CMPX, TROPI, BNP, CDP, PT #### [facility] [address] [place] [address] Urogynaecologist: Sami Dominguez MD BUN/CRE Ratio 13 Normal 9-20 [facility] Comment on above: Performed By: #### D CITLALY, LIP, CMPX, TROPI, BNP, CDP, PT #### [facility] [address] [place], [place] [id number] Urogynaecologist: Sami Dominguez MD Calcium [Mass/Vol] 9.7 mg/dL Normal 8.6-10.4 [facility] Comment on above: Performed By: #### D CITLALY, LIP, CMPX, TROPI, BNP, CDP, PT #### [facility] [address] [place], [place] [id number] Urogynaecologist: Sami Dominguez MD Chloride [Moles/Vol] 95 mmol/L Low 98-107 [facility] Comment on above: Performed By: #### D CITLALY, LIP, CMPX, TROPI, BNP, CDP, PT #### [facility] [address] [place], [place] [id number] Urogynaecologist: Sami Dominguez MD CO2 [Moles/Vol] 18 mmol/L Low 20-31 [facility] Comment on above: Performed By: #### D CITLALY, LIP, CMPX, TROPI, BNP, CDP, PT #### [facility] [address] [place], [place] [id number] Urogynaecologist: Sami Dominguez MD Creatinine [Mass/Vol] 3.07 mg/dL High 0.50-0.90 [facility] Comment on above: Performed By: #### D CITLALY, LIP, CMPX, TROPI, BNP, CDP, PT #### [facility] [address] [place], [place] [phone] Urogynaecologist: Sami Dominguez MD GFR, Amer 20 mL/min Low >60 [facility] Comment on above: Performed By: #### D CITLALY, LIP, CMPX, TROPI, BNP, CDP, PT #### [facility] [address] [place] [id number] Urogynaecologist: Sami Dominguez MD GFR,non Amer 17 mL/min Low >60 [facility] Comment on above: Performed By: #### D CITLALY, LIP, CMPX, TROPI, BNP, CDP, PT #### [facility] [address] [place], [place] [id number] Urogynaecologist: Sami Dominguez MD Glucose [Mass/Vol] 89 mg/dL Normal 70-99 [facility] Comment on above: Performed By: #### D CITLALY, LIP, CMPX, TROPI, BNP, CDP, PT #### [facility] [address] [place], [place] [phone] Urogynaecologist: Sami Dominguez MD Potassium [Moles/Vol] 3.9 mmol/L Normal 3.7-5.3 [facility] Comment on above: Performed By: #### D CITLALY, LIP, CMPX, TROPI, BNP, CDP, PT #### [facility] [address] [place], [place] [id number] Urogynaecologist: Sami Dominguez MD Protein [Mass/Vol] 8.8 g/dL High 6.4-8.3 [facility] Comment on above: Performed By: #### D CITLALY, LIP, CMPX, TROPI, BNP, CDP, PT #### [facility] [address] [place], [facility]83 Urogynaecologist: Sami Dominguez MD Sodium [Moles/Vol] 131 mmol/L Low 135-144 [facility] Comment on above: Performed By: #### D CITLALY, LIP, CMPX, TROPI, BNP, CDP, PT #### [facility] [address] [place] [address] Urogynaecologist: Sami Dominguez MD Staging: Normal [facility] Comment on above: Result Comment: Stag e 1: Some kidney damage normal GFR Stage 2: Mild kidney damage GFR 60-89 Stage 3: Moderate kidney damage GFR 30-59 Stage 4: Severe kidney damage GFR 15-29 Stage 5: Severe kidney damage GFR <15 ESRD - chronic treatment by dialysis or transplant Performed By: #### D CITLALY, LIP, CMPX, TROPI, BNP, CDP, PT #### [facility] [address] [place] [address] Urogynaecologist: Sami Dominguez MD Urea nitrogen [Mass/Vol] 39 mg/dL High 6-20 [facility] Comment on above: Performed By: #### D CITLALY, LIP, CMPX, TROPI, BNP, CDP, PT #### [facility] [address] [place] [address] Urogynaecologist: Sami Dominguez MD Comprehensive Metabolic Pane l w/ Reflex to MGon 08-02-2019 Albumin [Mass/Vol] 4.4 g/dL 3.5 - 5.2 g/dL [place] Albumin/Globulin [Mass ratio] 1.0 {ratio} [place] ALP [Catalytic activity/Vol] 98 U/L 35 - 104 U/L [place] ALT [Catalytic activity/Vol] 16 U/L 5 - 33 U/L [place] Anion gap [Moles/Vol] 18 mmol/L High 9 - 17 mmol/L [place] AST [Catalytic activity/Vol] 18 U/L <32 [place] Bilirubin Ql (U) 0.31 mg/dL 0.3 - 1.2 mg/dL [place] Bun/Cre Ratio 13 [place] Calcium [Mass/Vol] 9.7 mg/dL 8.6 - 10. 4 mg/dL [place] Chloride [Moles/Vol] 95 mmol/L Low 98 - 10 7 mmol/L [place] CO2 [Moles/Vol] 18 mmol/L Low 20 - 31 mmol/L [place] Creatinine [Mass/Vol] 3.07 mg/dL High 0.5 - 0.9 mg/dL [place] GFR 20 mL/min Low >60 [place] GFR Non- 17 mL/min Low >60 [place] Glucose [Mass/Vol] 89 mg/dL 70 - 99 mg/dL [place] Interpretation and review of laboratory results Abnormal [place] Potassium [Moles/Vol] 3.9 mmol/L 3.7 - 5.3 mmol/L [place] Protein [Mass/Vol] 8.8 g/dL High 6.4 - 8.3 g/dL [place] Sodium [Moles/Vol] 131 mmol/L Low 135 - 144 mmol/L [place] Urea nitrogen [Mass/Vol] 39 mg/dL High 6 - 20 mg/dL [place] D-Dimer Teston 08-02-2019 D-Dimer Test 1.15 mg/L FEU High 0.19-0.50 [facility] Comment on above: Result Comment: Elevated levels of D dimer can be seen in any state of coagulation activation including DVT, PE, arterial thrombosis, DIC, inflamatory disease, trauma, malignancy, sepsis, infection, hematoma, liver disease, post surgical state, , atherosclerosis, old age. When combined with a low clinical probability, a D dimer value of <0.50 mg/L is considered negative for DVT and PE (negative predictive value of 98%). Performed By: #### D ICTLALY, LIP, CMPX, TROPI, BNP, CDP, PT #### [facility] [address] [place] [address] Urogynaecologist: Sami Dominguez MD D-Dimer, Quantitativeon 07-07 D-Dimer, Quant 1.15 [place] Comment on above: Elevated levels of D dimer can be seen in any state of coagulation activation including DVT, PE, arterial thrombosis, DIC, inflamatory disease, trauma, malignancy, sepsis, infection, hematoma, liver disease, post surgical state, , atherosclerosis, old age. When combined with a low clinical probability, a D dimer value of <0.50 mg/L is considered negative for DVT and PE (negative predictive value of 98%). Interpretation and review of laboratory results Abnormal [place] Lactate, Sepsison 08-02-2019 Lactic Acid, Sepsis 3.6 mmol/L High 0.5-1.9 [facility] Comment on above: Performed By: #### L ACDS #### [facility] [address] [place] [address] Urogynaecologist: Sami Dominguez MD Lactic Acid,Sep Wbld NOT REPORTED Normal 0.5-1.9 [facility] Comment on above: Performed By: #### L ACDS #### [facility] [address] [place], [facility]83 Urogynaecologist: Sami Dominguez MD Interpretation and review of laboratory results Abnormal [place] Lactic Acid, Sepsis 3.6 mmol/L High 0.5 - 1. 9 mmol/L [place] Lactic Acid, Sepsis, Whole Blood NOT REPORTED 0.5 - 1.9 mmol/L [place] Lactic Acidon 08-02-2019 Lactate [Moles/Vol] 1.0 mmol/L Normal 0.5-2.2 [facility] Comment on above: Performed By: #### D CITLALY, LIP, CMPX, TROPI, BNP, CDP, PT #### [facility] [address] [place] [address] Urogynaecologist: Sami Dominguez MD Lactate [Moles/Vol] NOT REPORTED Normal 0.7-2.1 [facility] Comment on above: Performed By: #### D CITLALY, LIP, CMPX, TROPI, BNP, CDP, PT #### [facility] [address] [place] [address] Urogynaecologist: Sami Dominguez MD Lactic Acid, Plasmaon 2018 Lactate [Moles/Vol] 1 mmol/L 0.5 - 2. 2 mmol/L [place] Lactic Acid, Whole Blood NOT REPORTED 0.7 - 2.1 mmol/L [place] Lipaseon 08-02-2019 Lipase [Catalytic activity/Vol] 38 U/L Normal 13-60 [facility] Comment on above: Performed By: #### D CITLALY, LIP, CMPX, TROPI, BNP, CDP, PT #### [facility] [address] [place] [address] Urogynaecologist: Sami Dominguez MD Lipase [Catalytic activity/Vol] 38 U/L 13 - 60 U/L [place] Metabolic Panelon 08-02-2019 GFR/1.73 sq M predicted among non-blacks MDRD (S/P/Bld) [Vol rate/Area] [place] Comment on above: Stage 1: Some kidney damage normal GFR Stage 2: Mild kidney damage GFR 60-89 Stage 3: Moderate kidney damage GFR 30-59 Stage 4: Severe kidney damage GFR 15-29 Stage 5: Severe kidney damage GFR <15 ESRD - chronic treatment by dialysis or transplant Average GFR for 40-4 9 years old: 99 mL/min/1.73sq m Chronic Kidney Disease: <60 mL/min/1.73sq m Kidney failure: <15 mL/min/1.73sq m eGFR calculated using average adult body mass. Additional eGFR calculator available at: http://www.HW/multiple_crcl_2012.htm Microscopic Urinalysison Amorphous, UA NOT REPORTED None [place] Bacteria, UA 1+ Abnormal None [place] Casts UA NOT REPORTED /LPF [place] Crystals UA NOT REPORTED None /HPF [place] Epithelial Cells UA 2 TO 5 [place] Interpretation and review of laboratory results Abnormal [place] Mucus, UA NOT REPORTED None [place] Other Observations UA NOT REPORTED NOT REQ. [place] RBC (U) [#/Vol] None [place] Renal Epithelial, Urine NOT REPORTED 0 /HPF [place] Trichomonas, UA NOT REPORTED None [place] WBC, UA 50 TO 100 [place] Yeast, UA NOT REPORTED None [place] PTon 08-02-2019 INR Coag (PPP) [Relative time] 1.0 {INR} Normal 0.9-1.2 [facility] Comment on above: Performed By: #### D CITLALY, LIP, CMPX, TROPI, BNP, CDP, PT #### [facility] [address] [place] [address] Urogynaecologist: Sami Dominguez MD PT Coag (PPP) [Time] 10.0 s Normal 9.7-12.2 [facility] Comment on above: Performed By: #### D CITLALY, LIP, CMPX, TROPI, BNP, CDP, PT #### [facility] [address] [place] [address] Urogynaecologist: Sami Dominguez MD Protime-INRon 08-02-2019 INR Coag (PPP) [Relative time] 1.0 {INR} [place] PT Coag (PPP) [Time] 10 s [place] Troponinon 08-02-2019 Troponin I.cardiac [Mass/Vol] ng/mL Normal <0.03 [facility] Comment on above: Result Comment: Trop onin T results cannot be compared to Troponin-I results. Performed By: #### D CITLALY, LIP, CMPX, TROPI, BNP, CDP, PT #### [facility] [address] [place] [address] Urogynaecologist: Sami Dominguez MD Troponin I.cardiac [Mass/Vol] Normal [facility] Comment on above: Result Comment: Refe rence Range: <0.03 Within reference range. 0.03-0.09 Possible myocardial damage. Repeat at appropriate intervals to rule out chronic elevation. >= 0.10 Indicative of myocardial damage. Patients with high levels of Biotin oral intake (i.e >5mg/day) may have falsely decreased Troponin T levels. Samples collected within 8 hours of biotin intake may require additional information for diagnosis. Performed By: #### D CITLALY, LIP, CMPX, TROPI, BNP, CDP, PT #### [facility] [address] [place] [address] Urogynaecologist: Sami Dominguez MD Troponin I.cardiac [Mass/Vol] NOT REPORTED Normal 0-14 [facility] Comment on above: Performed By: #### D CITLALY, LIP, CMPX, TROPI, BNP, CDP, PT #### [facility] [address] [place] [address] Urogynaecologist: Sami Dominguez MD Troponin I.cardiac [Mass/Vol] [place] Comment on above: Reference Range: <0.03 Within reference range. 0.03-0.09 Possible myocardial damage. Repeat at appropriate intervals to rule out chronic elevation. >= 0.10 Indicative of myocardial damage. Patients with high levels of Biotin oral intake (i.e >5mg/day) may have falsely decreased Troponin T levels. Samples collected within 8 hours of biotin intake may require additional information for diagnosis. Troponin T.cardiac [Mass/Vol] ug/L <0.03 ng/mL [place] Comment on above: Troponin T results c annot be compared to Troponin-I results. Troponin, High Sensitivity NOT REPORTED 0 - 14 ng/L [place] Troponin I.cardiac [Mass/Vol] ng/mL Normal <0.03 [facility] Comment on above: Result Comment: Trop onin T results cannot be compared to Troponin-I results. Performed By: #### D CITLALY, LIP, CMPX, TROPI, BNP, CDP, PT #### [facility] [address] [place] [address] Urogynaecologist: Sami Dominguez MD Troponin I.cardiac [Mass/Vol] Normal [facility] Comment on above: Result Comment: Refe rence Range: <0.03 Within reference range. 0.03-0.09 Possible myocardial damage. Repeat at appropriate intervals to rule out chronic elevation. >= 0.10 Indicative of myocardial damage. Patients with high levels of Biotin oral intake (i.e >5mg/day) may have falsely decreased Troponin T levels. Samples collected within 8 hours of biotin intake may require additional information for diagnosis. Performed By: #### D CITLALY, LIP, CMPX, TROPI, BNP, CDP, PT #### [facility] [address] [address] Urogynaecologist: Sami Dominguez MD Troponin I.cardiac [Mass/Vol] NOT REPORTED Normal 0-14 [facility] Comment on above: Performed By: #### D CITLALY, LIP, CMPX, TROPI, BNP, CDP, PT #### [facility] [address] [place] [address] Urogynaecologist: Sami Dominguez MD Troponin I.cardiac [Mass/Vol] [place] Comment on above: Reference Range: <0.03 Within reference range. 0.03-0.09 Possible myocardial damage. Repeat at appropriate intervals to rule out chronic elevation. >= 0.10 Indicative of myocardial damage. Patients with high levels of Biotin oral intake (i.e >5mg/day) may have falsely decreased Troponin T levels. Samples collected within 8 hours of biotin intake may require additional information for diagnosis. Troponin T.cardiac [Mass/Vol] ug/L <0.03 ng/mL [place] Comment on above: Troponin T results c annot be compared to Troponin-I results. Troponin, High Sensitivity NOT REPORTED 0 - 14 ng/L [place] UA w/Reflex Cultureon 2018 [place] Acid,Ur Negative Normal NEG [facility] Comment on above: Performed By: #### D CITLALY, LIP, CMPX, TROPI, BNP, CDP, PT #### [facility] [address] [place] [address] Urogynaecologist: Sami Dominguez MD Bilirubin, SemiQt,Ur Negative Normal NEG [facility] Comment on above: Performed By: #### D CITLALY, LIP, CMPX, TROPI, BNP, CDP, PT #### [facility] [address] [place] [address] Urogynaecologist: Sami Dominguez MD Color (U) YELLOW Normal YEL [facility] Comment on above: Performed By: #### D CITLALY, LIP, CMPX, TROPI, BNP, CDP, PT #### [facility] [address] [place], [place] [id number] Urogynaecologist: Sami Dominguez MD Glucose Ql (U) Negative Normal NEG [facility] Comment on above: Performed By: #### D CITLALY, LIP, CMPX, TROPI, BNP, CDP, PT #### [facility] [address] [place] [address] Urogynaecologist: Sami Dominguez MD Hemoglobin, Ur 1+ Abnormal NEG [facility] Comment on above: Performed By: #### D CITLALY, LIP, CMPX, TROPI, BNP, CDP, PT #### [address] [place] [address] Urogynaecologist: Sami Dominguez MD Leukocyte esterase Test strip Ql (U) MODERATE Abnormal NEG [facility] Comment on above: Performed By: #### D CITLALY, LIP, CMPX, TROPI, BNP, CDP, PT #### [address] [place] [address] Urogynaecologist: Sami Dominguez MD Nitrite,Ur Negative Normal [facility] Comment on above: Performed By: #### D CITLALY, LIP, CMPX, TROPI, BNP, CDP, PT #### [address] [place] [address] Urogynaecologist: Sami Dominguez MD pH (U) 6.0 [pH] Normal 5.0-9.0 [facility] Comment on above: Performed By: #### D CITLALY, LIP, CMPX, TROPI, BNP, CDP, PT #### [address] [place] [address] Urogynaecologist: Sami Dominguez MD Protein Ql (U) TRACE Abnormal NEG [facility] Comment on above: Performed By: #### D CITLALY, LIP, CMPX, TROPI, BNP, CDP, PT #### [address] [place] [address] Urogynaecologist: Sami Dominguez MD Specific gravity (U) [Rel density] 1.010 Normal 1.010-1.020 [facility] Comment on above: Performed By: #### D CITLALY, LIP, CMPX, TROPI, BNP, CDP, PT #### [facility] [address] [place] [address] Urogynaecologist: Sami Dominguez MD Turbidity CLEAR Normal CLEAR [facility] Comment on above: Performed By: #### D CITLALY, LIP, CMPX, TROPI, BNP, CDP, PT #### [facility] [address] [place] [address] [place] [address] Urogynaecologist: Sami Dominguez MD Urobilinogen,Ur Normal Normal NORM [facility] Comment on above: Performed By: #### D CITLALY, LIP, CMPX, TROPI, BNP, CDP, PT #### [facility] [address] [place] [address] [place] [place] [id number] Urogynaecologist: Sami Dominguez MD Comment NOT REPORTED Normal [facility] Comment on above: Performed By: #### D CITLALY, LIP, CMPX, TROPI, BNP, CDP, PT #### [address] [place] [address] Urogynaecologist: Sami Dominguez MD Urinalysis Reflex to Culture on 08-02-2019 Bilirubin Urine Negative NEGATIVE [facility], [place] Color, UA YELLOW YELLOW [place], [place] Glucose, Ur Negative NEGATIVE [place] Interpretation and review of laboratory results Abnormal [facility], [place] Ketones Ql (U) Negative NEGATIVE [place] Leukocyte esterase Test strip Ql (U) MODERATE Abnormal NEGATIVE [facility], [place] Nitrite, Urine Negative NEGATIVE [place] pH, UA 6.0 [place] Protein (U) [Mass/Vol] TRACE Abnormal NEGATIVE [facility], [place] Specific [place], UA 1.010 [facility], [place] Turbidity UA CLEAR CLEAR [place] Urinalysis Comments NOT REPORTED [facility], [place] Urine Hgb 1+ Abnormal NEGATIVE [facility], [place] Urobilinogen, Urine Normal Normal [place] Urinalysis,Microon 9 ----- Normal [facility] Comment on above: Performed By: #### D CITLALY, LIP, CMPX, TROPI, BNP, CDP, PT #### [facility] [address] [place] [address] Urogynaecologist: Sami Dominguez MD Bacteria LM.HPF (Urine sed) [#/Area] 1+ Abnormal [facility] Comment on above: Performed By: #### D CITLALY, LIP, CMPX, TROPI, BNP, CDP, PT #### [address] [place] [address] Urogynaecologist: Sami Dominguez MD Epithelial cells LM.HPF (Urine sed) [#/Area] 2 TO 5 Normal 0-25 [facility] Comment on above: Performed By: #### D CITLALY, LIP, CMPX, TROPI, BNP, CDP, PT #### [address] [place] [address] Urogynaecologist: Sami Dominguez MD RBC (U) [#/Vol] None Normal 0-2 [facility] Comment on above: Performed By: #### D CITLALY, LIP, CMPX, TROPI, BNP, CDP, PT #### [address] [place] [address] Urogynaecologist: Sami Dominguez MD WBC (U) [#/Vol] 50 TO 100 Normal 0-5 [facility] Comment on above: Performed By: #### D CITLALY, LIP, CMPX, TROPI, BNP, CDP, PT #### [address] [place] [address] Urogynaecologist: Sami Dominguez MD Amorphous sediment LM Ql (Urine sed) NOT REPORTED Normal NONE [facility] Comment on above: Performed By: #### D CITLALY, LIP, CMPX, TROPI, BNP, CDP, PT #### [facility] [address] [place] [address] Urogynaecologist: Sami Dominguez MD Casts LM.LPF (Urine sed) [#/Area] NOT REPORTED Normal [facility] Comment on above: Performed By: #### D CITLALY, LIP, CMPX, TROPI, BNP, CDP, PT #### [facility] [address] [place] [address] Urogynaecologist: Sami Dominguez MD Crystals LM Nom (Urine sed) NOT REPORTED Normal [facility] Comment on above: Performed By: #### D CITLALY, LIP, CMPX, TROPI, BNP, CDP, PT #### [address] [place], [facility] Urogynaecologist: Sami Dominguez MD Epithelial, Renal NOT REPORTED Normal 0 [facility] Comment on above: Performed By: #### D CITLALY, LIP, CMPX, TROPI, BNP, CDP, PT #### [address] [place] [address] Urogynaecologist: Sami Dominguez MD Mucus Strands NOT REPORTED Normal [facility] Comment on above: Performed By: #### D CITLALY, LIP, CMPX, TROPI, BNP, CDP, PT #### [facility] [address] [place] [address] [place] [address] Urogynaecologist: Sami Dominguez MD Other Observations NOT REPORTED Normal NREQ [facility] Comment on above: Performed By: #### D CITLALY, LIP, CMPX, TROPI, BNP, CDP, PT #### [facility] [address] [place], [place] [id number] Urogynaecologist: Sami Dominguez MD Trichomonas NOT REPORTED Normal [facility] Comment on above: Performed By: #### D CITLALY, LIP, CMPX, TROPI, BNP, CDP, PT #### [facility] [address] [place] [address] Urogynaecologist: Sami Dominguez MD Yeast LM Ql (Urine sed) NOT REPORTED Normal NONE [facility] Comment on above: Performed By: #### D CITLALY, LIP, CMPX, TROPI, BNP, CDP, PT #### [facility] [address] [place] [address] Urogynaecologist: Sami Dominguez MD XR CHEST PORTABLEon 08-02-20 XR CHEST PORTABLE EXAMINATION: ONE XRAY VIEW OF THE CHEST 08/02/2019 12:59 pm COMPARISON: None. HISTORY: ORDERING SYSTEM PROVIDED HISTORY: CP TECHNOLOGIST PROVIDED HISTORY: CP FINDINGS: Heart size and pulmonary vessels are within normal limits. Lungs are clear. No focal infiltrates or significant pleural effusions are seen. There is no acute osseous abnormality. Monitor leads overlie the chest. IMPRESSION: No acute cardiopulmonary process. Interpreted by: Cullen Ngo MD Signed by: Cullen Ngo MD 08/02/19 Final result Normal [facility] EXAMINATION: ONE XRA Y VIEW OF THE CHEST 08/02/2019 12:59 pm COMPARISON: None. HISTORY: ORDERING SYSTEM PROVIDED HISTORY: CP TECHNOLOGIST PROVIDED HISTORY: CP FINDINGS: Heart size and pulmonary vessels are within normal limits. Lungs are clear. No focal infiltrates or significant pleural effusions are seen. There is no acute osseous abnormality. Monitor leads overlie the chest. [place] No acute cardiopulmo nary process. [place], [place] Moshe, [facility] Incoming Radiant Results From [employer] II/RIWIs - 08/02/2019 1:10 PM EDT EXAMINATION: ONE XRAY VIEW OF THE CHEST 08/02/2019 12:59 pm COMPARISON: None. HISTORY: ORDERING SYSTEM PROVIDED HISTORY: CP TECHNOLOGIST PROVIDED HISTORY: CP FINDINGS: Heart size and pulmonary vessels are within normal limits. Lungs are clear. No focal infiltrates or significant pleural effusions are seen. There is no acute osseous abnormality. Monitor leads overlie the chest. IMPRESSION: No acute cardiopulmonary process. [place] Vital Signs Date Time Vital Sign Value Performing Clinician Facility 07-30-2022 17:40-0400 Body height 157.48 cm Yaneth Toni Other [facility] Other 07-30-2022 17:40-0400 Body mass index (BMI) [Ratio] 36.69 kg/m2 Yaneth Toni Other [facility] Other 07-30-2022 17:40-0400 Body temperature 97.4 [degF] Yaneth Toni Other [facility] Other 07-30-2022 17:40-0400 Body weight 90.99 kg Yaneth Toni Other [facility] Other 07-30-2022 17:40-0400 Diastolic blood pressure 85 mm[Hg] Yaneth Toni Other [facility] Other 07-30-2022 17:40-0400 Respiratory rate 18 /min Yaneth Toni Other [facility] Other 07-30-2022 17:40-0400 SaO2% (BldA) [Mass fraction] 99 % Yaneth Toni Other [facility] Other 07-30-2022 17:40-0400 Systolic blood pressure 124 mm[Hg] Yaneth Toni Other [facility] Other 07-03-2022 09:45-0400 Body height 157.48 cm Estefania Vo Other [facility] Other 07-03-2022 09:45-0400 Body mass index (BMI) [Ratio] 36.76 kg/m2 Estefania Vo Other [facility] Other 07-03-2022 09:45-0400 Body temperature 97 [degF] Estefania Vo Other [facility] Other 07-03-2022 09:45-0400 Body weight 91.17 kg Estefania Vo Other [facility] Other 07-03-2022 09:45-0400 Diastolic blood pressure 60 mm[Hg] Estefania Vo Other [facility] Other 07-03-2022 09:45-0400 SaO2% (BldA) [Mass fraction] 99 % Estefania Vo Other [facility] Other 07-03-2022 09:45-0400 Systolic blood pressure 110 mm[Hg] Estefania Vo Other [facility] Other 06-20-2022 16:10-0400 Diastolic blood pressure 68 mm[Hg] DO Ming Espinoza Work Phone: [facility] 06-20-2022 16:10-0400 Heart rate 69 /min DO Ming Espinoza Work Phone: [facility] 06-20-2022 16:10-0400 Respiratory rate 18 /min DO Ming Alexis Work Phone: [facility] 06-20-2022 16:10-0400 SaO2% (BldA) [Mass fraction] 100 % DO Ming Espinoza Work Phone: [facility] 06-20-2022 16:10-0400 Systolic blood pressure 126 mm[Hg] DO Ming Ibarraman Work Phone: [facility] 06-20-2022 13:15-0400 Body height 157.48 cm DO Ming Espinoza Work Phone: [facility] 06-20-2022 13:15-0400 Body temperature 98.6 [degF] DO Minglizz Espinoza Work Phone: [facility] 06-20-2022 13:15-0400 Body weight 91.5 kg DO Ming Espinoza Work Phone: [facility] 06-18-2022 10:45-0400 Diastolic blood pressure 79 mm[Hg] DO Ming Espinoza Work Phone: [facility] 06-18-2022 10:45-0400 Heart rate 66 /min DO Ming Espinoza Work Phone: [facility] 06-18-2022 10:45-0400 Respiratory rate 16 /min DO Ming Espinoza Work Phone: [facility] 06-18-2022 10:45-0400 SaO2% (BldA) [Mass fraction] 100 % DO Ming Espinoza Work Phone: [facility] 06-18-2022 10:45-0400 Systolic blood pressure 130 mm[Hg] DO Ming Espinoza Work Phone: [facility] 06-18-2022 08:08-0400 Body mass index (BMI) [Ratio] 37.8 kg/m2 DO Ming Espinoza Work Phone: [facility] 06-18-2022 07:41-0400 Body height 157.48 cm DO Ming Espinoza Work Phone: [facility] 06-18-2022 07:41-0400 Body weight 93.89 kg DO Minglizz Espinoza Work Phone: [facility] 06-18-2022 06:26-0400 Body temperature 98.5 [degF] DO Minglizz Espinoza Work Phone: [facility] 05-30-2022 11:00-0400 Body height 157.48 cm Jesus Parham Other [facility] Other 05-30-2022 11:00-0400 Body mass index (BMI) [Ratio] 36.76 kg/m2 Jesus Parham Other [facility] Other 05-30-2022 11:00-0400 Body temperature 97.6 [degF] Jesus Parham Other [facility] Other 05-30-2022 11:00-0400 Body weight 91.17 kg Jesus Parham Other [facility] Other 05-30-2022 11:00-0400 Diastolic blood pressure 76 mm[Hg] Jesus Parham Other [facility] Other 05-30-2022 11:00-0400 SaO2% (BldA) [Mass fraction] 98 % Jesus Parham Other [facility] Other 05-30-2022 11:00-0400 Systolic blood pressure 128 mm[Hg] Jesus Parham Other [facility] Other 05-02-2022 14:40-0400 Body height 157.48 cm Yaneth Toni Other [facility] Other 05-02-2022 14:40-0400 Body mass index (BMI) [Ratio] 36.76 kg/m2 Yaneth Toni Other [facility] Other 05-02-2022 14:40-0400 Body temperature 97.7 [degF] Yaneth Toni Other [facility] Other 05-02-2022 14:40-0400 Body weight 91.17 kg Yaneth Toni Other [facility] Other 05-02-2022 14:40-0400 Diastolic blood pressure 88 mm[Hg] Yaneth Toni Other [facility] Other 05-02-2022 14:40-0400 Respiratory rate 18 /min Yaneth Toni Other [facility] Other 05-02-2022 14:40-0400 SaO2% (BldA) [Mass fraction] 98 % Yaneth Toni Other [facility] Other 05-02-2022 14:40-0400 Systolic blood pressure 121 mm[Hg] Yaneth Toni Other [facility] Other 04-30-2022 10:10-0400 Body height 157.48 cm Dipika Shantell Other [facility] Other 04-30-2022 10:10-0400 Body mass index (BMI) [Ratio] 37.86 kg/m2 Dipika Shantell Other [facility] Other 04-30-2022 10:10-0400 Body temperature 97.4 [degF] Dipika Shantell Other [facility] Other 04-30-2022 10:10-0400 Body weight 93.9 kg Dipika Shantell Other [facility] Other 04-30-2022 10:10-0400 Diastolic blood pressure 80 mm[Hg] Dipika Stinson Other [facility] Other 04-30-2022 10:10-0400 Respiratory rate 16 /min Dipika Stinson Other [facility] Other 04-30-2022 10:10-0400 SaO2% (BldA) [Mass fraction] 100 % Dipika Stinson Other [facility] Other 04-30-2022 10:10-0400 Systolic blood pressure 117 mm[Hg] Dipika Stinson Other [facility] Other 04-01-2022 09:13-0400 Diastolic blood pressure 62 mm[Hg] DO Ming Espinoza Work Phone: [facility] 04-01-2022 09:13-0400 Heart rate 83 /min DO Ming Espinoza Work Phone: [facility] 04-01-2022 09:13-0400 Respiratory rate 16 /min DO Ming Espinoza Work Phone: [facility] 04-01-2022 09:13-0400 SaO2% (BldA) [Mass fraction] 97 % DO Ming Espinoza Work Phone: [facility] 04-01-2022 09:13-0400 Systolic blood pressure 101 mm[Hg] DO Ming Alexis Work Phone: [facility] 04-01-2022 07:23-0400 Body height 157.48 cm DO Ming Alexis Work Phone: [facility] 04-01-2022 07:23-0400 Body mass index (BMI) [Ratio] 37.8 kg/m2 DO Ming Alexis Work Phone: [facility] 04-01-2022 07:23-0400 Body temperature 97.8 [degF] DO Ming Alexis Work Phone: [facility] 04-01-2022 07:23-0400 Body weight 93.89 kg DO Ming Espinoza Work Phone: [facility] 12-06-2021 16:20-0500 Body height 157.48 cm Yaneth Toni Other [facility] Other 12-06-2021 16:20-0500 Body mass index (BMI) [Ratio] 37.86 kg/m2 Yaneth Toni Other [facility] Other 12-06-2021 16:20-0500 Body weight 93.9 kg Yaneth Toni Other [facility] Other 12-06-2021 16:20-0500 Diastolic blood pressure 89 mm[Hg] Yaneth Toni Other [facility] Other 12-06-2021 16:20-0500 Respiratory rate 18 /min Yaneth Toni Other [facility] Other 12-06-2021 16:20-0500 SaO2% (BldA) [Mass fraction] 97 % Yaneth Toni Other [facility] Other 12-06-2021 16:20-0500 Systolic blood pressure 134 mm[Hg] Yaneth Toni Other [facility] Other 08-02-2019 16:35-0400 Body Temperature 99.3 [degF] [facility] [place] 08-02-2019 16:27-0400 Pulse (Heart Rate) 110 /min [facility] [place] 08-02-2019 16:27-0400 Pulse Oximetry 98 % [facility] [place] 08-02-2019 16:27-0400 Respiratory Rate 14 /min Vidal Peguero [facility], [place] 08-02-2019 16:16-0400 BP Diastolic 56 mm[Hg] Vidal Peguero [facility] , [place] 08-02-2019 16:16-0400 BP Systolic 97 mm[Hg] Vidal Peguero [facility] , [place] 08-02-2019 14:59-0400 BMI (Body Mass Index) 37.79 kg/m2 Vidal Peguero [facility], [place] 08-02-2019 14:59-0400 Body weight 90.72 kg [facility] , [place] 08-02-2019 14:59-0400 Height 154.9 cm Vidal Peguero [facility] [place] Encounters Encounter Date Encounter Type Care Provider Facility Start: 10-13-2023 End: 10-13-2023 ambulatory MING ESPINOZA Not Available Start: 09-01-2023 End: 09-01-2023 ambulatory [facility] Start: 08-26-2023 ambulatory [facility] Start: 07-30-2023 End: 07-30-2023 ambulatory Referral Self Facility:[facility] Start: 06-28-2023 ambulatory [facility] Start: 05-29-2023 ambulatory [facility] Start: 04-30-2023 ambulatory [facility] Start: 04-16-2023 End: 04-16-2023 ambulatory [facility] Start: 03-31-2023 ambulatory [facility] Start: 02-24-2023 ambulatory [facility] Start: 02-03-2023 End: 02-03-2023 ambulatory [facility] Start: 02-01-2023 ambulatory [facility] Start: 01-17-2023 ambulatory [facility] Start: 01-09-2023 ambulatory [facility] Start: 01-01-2023 ambulatory [facility] Start: 12-25-2022 End: 12-25-2022 ambulatory [facility] Start: 12-06-2022 ambulatory [facility] Start: 11-29-2022 End: 11-29-2022 ambulatory [facility] Start: 11-19-2022 ambulatory [facility] Start: 11-08-2022 ambulatory SUJIT MONTERROSO [facility] Start: 11-06-2022 ambulatory [facility] Start: 11-06-2022 Encounter for other preprocedural examination [facility] Start: 10-23-2022 End: 10-23-2022 ambulatory [facility] Start: 10-15-2022 End: 10-15-2022 ambulatory SREE BLANCHARD [facility] Start: 10-08-2022 ambulatory [facility] Start: 07-30-2022 End: 07-30-2022 ambulatory Yaneth Toni Other [facility] Other Start: 07-30-2022 Office outpatient vi sit 25 minutes Yaneth Toni [facility] Start: 07-29-2022 End: 07-30-2022 ambulatory YANETH TONI Facility: Start: 07-16-2022 End: 07-16-2022 ambulatory DO Ming Espinoza Work Phone: [facility] Work Phone: Start: 07-16-2022 End: 07-16-2022 Patient encounter procedure DO Ming Espinoza Work Phone: [facility] Start: 07-03-2022 End: 07-03-2022 ambulatory Estefania Vo Other [facility] Other Start: 07-03-2022 Follow-up encounter Estefania Tavo [facility] Start: 06-20-2022 End: 06-20-2022 ambulatory Jesus Parham Other [facility] Other Start: 06-20-2022 Telephone encounter Jesus adler [facility] Start: 06-20-2022 End: 06-20-2022 Emergency department patient visit DO Ming Espinoza Work Phone: [facility] Start: 06-18-2022 End: 06-18-2022 Admission to same day surgery center DO Ming Espinoza Work Phone: [facility] [place] Start: 06-14-2022 End: 06-14-2022 Patient encounter procedure DO Ming Espinoza Work Phone: [facility]Pre-Surgical Testing Start: 06-06-2022 End: 06-07-[address] BRINDA CHAMPION Facility: Start: 06-05-2022 End: 06-05-2022 Patient encounter procedure DO Ming Summers Phone: [facility] Start: 06-03-2022 End: 06-03-2022 ambulatory Jesus Parham Other [facility] Other Start: 06-03-2022 Encounter for other preprocedural examination Jesus Parham [facility] Start: 06-03-2022 Telephone encounter Jesus adler [facility] Start: 05-30-2022 End: 05-30-2022 ambulatory Jesus Parham Other [facility] Other Start: 05-30-2022 [facility] visit new patient Jesus isabel [facility] Start: 05-30-2022 End: 05-30-2022 Patient encounter procedure DO Ming Espinoza Work Phone: [facility] Start: 05-29-[address] BLAKE CHAMPION [facility] ity:[facility] Start: 05-02-2022 End: 05-02-2022 ambulatory Yaneth Toni Other [facility] [employer] Other Start: 05-02-2022 Office outpatient vi sit 25 minutes Yaneth Toni [facility] Start: 04-30-2022 End: 04-30-2022 ambulatory Dipika Stinson Other [employer] Other Start: 04-30-2022 Office outpatient vi sit 15 minutes Dipika Stinson [facility] Start: 04-30-2022 Encounter for preprocedural laboratory examination YANETH MUÑOZ [facility] Start: 04-29-2022 Encounter for other preprocedural examination DR DOCTOR ALEJANDRO [facility] Start: 04-27-2022 End: 04-28-2022 Encounter for other preprocedural examination DR MING ESPINOZA Facility:[facility] Start: 04-27-2022 End: 04-28-[address] MING ESPINOZA Facility:[facility] Start: 04-27-2022 End: 04-28-2022 Encounter for preprocedural laboratory examination YANETH TONI Facility:[facility] Start: 04-03-2022 Encounter for other specified special examinations DR DOCTOR ALEJANDRO [facility] Start: 04-01-2022 End: 04-01-2022 Admission to same day surgery center DO Ming Espinoza Work Phone: [facility] Start: 03-29-2022 End: 03-30-[address] DOCTOR ALEJANDRO Facility:[facility] Start: 03-29-2022 End: 03-30-2022 Encounter for other specified special examinations DR DOCTOR ALEJANDRO Facility:[facility] Start: 03-28-2022 End: 03-28-2022 Patient encounter procedure DO Ming Espinoza Work Phone: [facility] Start: 02-26-2022 End: 02-26-2022 ambulatory Shabbir Jones Other [facility] Other Start: 02-26-2022 Telephone encounter Shabbir Jones [facility] [employer] Start: 12-06-2021 End: 12-06-2021 ambulatory Yaneth Toni Other [facility] Other Start: 12-06-2021 Office outpatient vi sit 25 minutes Yaneth Toni [facility] Start: 12-03-2021 End: 12-04-2021 ambulatory YANETH TONI Facility:[facility] Start: 09-01-2021 End: 09-02-[address] MING ESPINOZA Facility:[facility] Start: 08-02-2019 End: 08-02-2019 Emergency department patient visit [facility] Start: 08-02-2019 End: 08-02-2019 Emergency department patient visit Vidal Madrigal Work Phone: [facility] ED Comment on above: Acute sepsis (HCC) ( Primary Dx); Acute cystitis without hematuria; Chronic renal failure, stage 4 (severe) (HCC); Polycystic kidney disease Procedures Date Procedure Procedure Detail Performing Clinician Start: 07-16-2022 Screening mammograph y of bilateral breasts DO Ming Espinoza Work Phone: Start: 06-18-2022 Arteriovenous fistulization DO Mign Espinoza Work Phone: Start: 05-30-2022 Ultrasound (US) dopp ler flow mapping of vein of upper limb DO Ming Espinoza Work Phone: Start: 04-01-2022 Screening colonoscopy D O Ming Espinoza Work Phone: Start: 08-02-2019 Assay of lactate VIDAL KAITLIN Start: 08-02-2019 Assay of troponin quantitative VIDAL MADRIGAL Start: 08-02-2019 Assay of lactate Vidal Madrigal Work Phone: Start: 08-02-2019 Assay of troponin quantitative Vidal Madrigal Work Phone: Start: 08-02-2019 Culture bacterial quanttative colony count urine VIDAL KAITLIN Start: 08-02-2019 Radiologic exam ches t single view VIDAL KAITLIN Start: 08-02-2019 Ct thorax w/contrast material VIDAL KAITLIN Start: 08-02-2019 Assay of lipase VIDAL W EESE Start: 08-02-2019 Assay of troponin quantitative VIDAL KAITLIN Start: 08-02-2019 Blood count complete auto&auto difrntl wbc VIDAL KAITLIN Start: 08-02-2019 BRAIN NATRIURETIC PEPTIDE VIDAL KAITLIN Start: 08-02-2019 Fibrin dgradj produc ts d-dimer quantitative VIDAL KAITLIN Start: 08-02-2019 Prothrombin time VIDAL KAITLIN Start: 08-02-2019 Assay of lactate VIDAL KAITLIN Start: 08-02-2019 Culture bacterial bl ood aerobic w/id isolates VIDAL KAITLIN Start: 08-02-2019 INITIATE OXYGEN THER APY PROTOCOL VIDAL MADRIGAL Start: 08-02-2019 Ecg routine ecg w/le ast 12 lds w/i&r VIDAL MADRIGAL Start: 08-02-2019 Urinalysis microscopic only Vidal Madrigal Work Phone: Start: 08-02-2019 Urnls dip stick/tabl et rgnt auto w/o microscopy Vidal Kaitlin Work Phone: Start: 08-02-2019 Radiologic exam ches t single view Vidal Madrigal Work Phone: Start: 08-02-2019 Ct angiography chest w/contrast/noncontrast Vidal Kaitlin Work Phone: Start: 08-02-2019 Assay of lipase Vidal W rosase Work Phone: Start: 08-02-2019 Assay of troponin quantitative Vidal Kaitlin Work Phone: Start: 08-02-2019 Blood count complete auto&auto difrntl wbc Vidal Kaitlin Work Phone: Start: 08-02-2019 Fibrin dgradj produc ts d-dimer quantitative Vidal Kaitlin Work Phone: Start: 08-02-2019 LACTATE, SEPSIS Vidal W rosase Work Phone: Start: 08-02-2019 Natriuretic peptide Letha Madrigal Work Phone: Start: 08-02-2019 Prothrombin time Vidal Madrigal Work Phone: Start: 08-02-2019 INITIATE OXYGEN THER APY PROTOCOL Vidal Madrigal Work Phone: Start: 08-02-2019 Ecg routine ecg w/le ast 12 lds w/i&r Vidal Madrigal Work Phone: SARS Antigen (LFIA) DO Angy Espinoza Work Phone: Plan of Treatment Date Care Activity Detail Author Start: 06-18-2022 [facility] Start: 06-18-2022 [facility] Start: 04-01-2022 [facility] Work Phone: Start: 06-06-2019 Influenza vaccination Flu vaccine (# 1) [place], [place] Start: 2015 Lipid screen Lipid screen [place], [place] Start: 1996 Cervical cancer screen Cervical canc er screen [place], [place] Start: 1994 DTaP/Tdap/Td vaccine (1 - Tdap) DTaP/Tdap/Td vaccine (1 - Tdap) [place], [place] Start: 1990 HIV screen HIV screen [place], [place] Start: 1975 Creatinine monitoring Creatinine mon itoring [place], [place] Start: 1975 Potassium monitoring Potassium monit [place]ing [place] End: 08-02-2019 Bacteria identified Cx Nom (U) Urine Culture Microbiology STAT One Time for 1 Occurrences starting 08/02/2019 until 08/02/2019 [place] Comment on above: One Time for 1 Occur rences starting 08/02/2019 until 08/02/2019 Bacteria identified Cx Nom (U) Urine Culture Microbiology STAT 08/02/2019 1:00 PM EDT [place] End: 08-02-2019 Culture blood #1 Culture blood #1 Microbiology STAT One Time for 1 Occurrences starting 08/02/2019 until 08/02/2019 [place] Comment on above: One Time for 1 Occur rences starting 08/02/2019 until 08/02/2019 End: 08-02-2019 Culture blood #2 Culture blood #2 Microbiology STAT One Time for 1 Occurrences starting 08/02/2019 until 08/02/2019 [facility] Comment on above: One Time for 1 Occur rences starting 08/02/2019 until 08/02/2019 EKG 12 Lead EKG 12 Lead ECG STAT 08/02/2019 12:25 PM EDT [place], [place] Initiate Oxygen Ther apy Protocol Initiate Oxygen Therapy Protocol Respiratory Care Routine Daily until discontinued starting 08/02/2019, 2 completed [place] Comment on above: Daily until disconti nued starting 08/02/2019, 2 completed End: 08-02-2019 Lactate, Sepsis Lactate, Sepsis Lab Timed Now Then Every 2hr for 2 Occurrences starting 08/02/2019 until 08/02/2019, 1 completed [place] Comment on above: Now Then Every 2hr f or 2 Occurrences starting 08/02/2019 until 08/02/2019, 1 completed Patient Education [facility] Work Phone: Patient referral [facility] Work Phone: Potassium [Moles/vol ume] in Serum or Plasma [facility] Work Phone: Immunizations Immunization Date Immunization Notes Care Provider Chirag summers 10-13-2021 COVID-19 Ad26.COV2.S (Ainsley) DO Ming Espinoza Work Phone: [facility] Payers Date Payer Category Payer Unknown [employer] [address] xxxxxxxxx 2015-Present [phone] [address] [place] [address] xxxxxxxxx [id number] 1975 Unknown [id number] 1975 Unknown [id number] 1975 Unknown [id number] 1975 Unknown [id number] 1975 Unknown [id number] 1975 Unknown [id number] 1975 Unknown [id number] 1975 Unknown [id number] 1975 Unknown [id number] 1975 Unknown [id number] 9 1959 Self-pay [id number] 1959 Unknown [id number] 1959 Unknown [id number] Unknown [id number] Unknown [id number] Social History Date Type Detail Facility Tobacco smoking status NHIS Unknown if ever smoked [employer] Sex Assigned At Not on file [employer] Sex Assigned At Sex Assigned At Bir [facility] Start: 06-05-2022 End: 06-20-2022 Tobacco smoking status NHIS Never smoked tobacco (finding) [facility] Start: 1975 Sex Assigned At Female F [facility] Goals Date Patient Goal Desired Activity /State Clinical Notes 05-17-2020 to 10-02-2023 Note Date & Type Note Facility 10-02-2023 Note Per phone order Tyler sorto MD, increase Kdur from 10meq every day to 20meq every day due to K 3.2 on 09/26/23. Pt informed and verbalized understanding. Amiloride removed from her MAR as she reported in July she is not taking and reconfirmed today. [facility] 09-01-2023 Note [facility] 08-06-2023 Note For K-level of 3.4, left VM to start Kdur [address] Dolores anderson. [facility] 07-24-2023 Note [facility] 07-24-2023 Note [facility] 07-24-2023 Note [facility] 07-17-2023 Note [facility] 07-16-2023 Note Reviewed by phone noreen Monterroso MD pt input about her medication changes by PCP including stopping Amiloride. agreed to reschedule her 07/18 RV and review labs tomorrow by phone. Clinic MA team informed to reschedule pt. [facility] 07-16-2023 Note [facility] 07-10-2023 Note [facility] 06-17-2023 Note [facility] 06-15-2023 Note [facility] 04-30-2023 Note [facility] 04-16-2023 Note Seen by Dolores FIERRO in clinic today, he states he gave the pt verbal instruction to reduce her Prednisone to 5mg every other day. [facility] 04-16-2023 Note [facility] 04-11-2023 Note Reviewed Mag K & cre atinine with Guillermo IFERRO and to start Amiloride 5mg every day due to low mag level 1.6. Pt notified and she verbalizes understanding. RV 04/16 [facility] 04-11-2023 Note [facility] 02-24-[address] Sharla anderson, patie nt notified to start taking Potassium chloride 20 meq daily. Pt verbalized understanding [facility] 02-04-2023 Note CK: 26.0. Reviewed l ab results with Dr. Monterroso. No new orders at this time. [facility] 02-03-2023 Note [facility] 01-09-2023 Note Tac:4.4. Reviewed la b results with Dr. Monterroso. New order to increase Envarsus by 0.5mg daily. New daily dose will be Envarsus 2mg. Patient verbalizes understanding of medication change and will repeat tac level in a week. [facility] 01-01-2023 Note Tac: 10. Reviewed la b results with Dr. Monterroso. New order to decrease Envarsus by 0.5mg daily. New daily dose will be Envarsus 1.5mg. Patient verbalizes understanding of medication change and repeat lab in a week. [facility] 12-25-2022 Note Patient seen in clin ic today with Dr. Parrish, to decrease Envarsus by 1 mg daily, new dose will now be 2 mg daily. Voiced understanding of medication change and will repeat level in about a week. [facility] 12-25-2022 Note [facility] 12-06-2022 Note Patient came for lab s today due to elevated creatinine, now improved. Was to get Prospera done as well but test was missed. To be in later this month for clinic visit and labs, will repeat at that time. [facility] 11-29-2022 Note [facility] 11-19-2022 Note Tac: 11.7. Reviewed lab results with Dr. Monterroso. New order to decrease Envarsus by 0.5 daily. New daily dose will be Envarsus 3mg. Patient verbalizes understanding of medication change and to recheck tac level in a week. [facility] 11-18-2022 Note Met with pt at [facility] on 09/23/22. Reviewed safe discharge plan. Will have familial support at home. Provided post op education including s/s of mental health exacerbation, prednisone side effects and clinic expectations. [facility] 11-08-2022 Note [facility] 11-06-2022 Note Protein urine: 14 an d Creatinine urine: 62. Reviewed results with Dr. Monterroso. No new medication orders at this time. [facility] 10-23-2022 Note [facility] 10-18-2022 Note [facility] 10-15-2022 Note [facility] 10-15-2022 Note [facility] 10-14-2022 Note [facility] 10-08-2022 Note [facility] 10-08-2022 Note [facility] 10-07-2022 Note [facility] 07-30-2022 Evaluation note Encounter Date Diagnosis Assessment Notes Jul, Anemia of renal disease (ICD-10 - D63.1) Hb is within the goal and has low Iron stores. Continue oral iron daily Jul, Chronic kidney disease, stage 5 (ICD-10 - N18.5) She has a CKD due to the ADPKD. Her b/l serum creatinine is 3.3- 3.6 mg/dL. She is interested in home dialysis and would like to prefer PD. She has AV fistula which will need a revision. Positive thrill and bruit on exam. She is also active on the transplant list. Currently she has no indication to initiate dialysis. 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 Jul, Secondary hyperparathyroidism (ICD-10 - N25.81) She has secondary hyperparathyroidism due to the hyperphosphatemia and CKD. I have advised low Phosphorus diet. Jul, ADPKD (autosomal dominant polycystic kidney disease) (ICD-10 - Q61.2) She has advanced CKD due to polycystic kidney disease. Jul, Gout (ICD-10 - M10.9) She has gout and follows with a supervisor pre wave. She takes Urolic and denies any recent gout flare Jul, Metabolic acidemia, unspecified (ICD-10 - P19.9) She has metabolic acidosis due to the advanced CKD. Continue oral Sodium Bicarbonate [facility] 09-28-2022 Evaluation note* Encounter Date Diagnosis Assessment Notes Treatment Notes Treatment Clinical Notes Jun, Polycystic kidney disease (ICD-10 - Q61.3) This patient's fistula is developing nicely. By physical examination it has a good thrill and bruit. The surgical incision is healing nicely. The fistula does feel a bit deep. We did discuss that she would need a second procedure for transposition of the fistula once we allow it to mature a bit. We will see her back in the office in 6 or 8 weeks with graft flow scan of the AV fistula to evaluate maturation process and plan for transposition of her fistula. She does not currently require hemodialysis and follows closely with nephrology for routine monitoring of her kidney function. She verbalizes understanding of all discussion, agrees with this plan, denies any questions. Jun, Chronic kidney disease, unspecified CKD stage (ICD-10 - N18.9) [facility] Encounter Date Diagnosis Assessment Notes Treatment Notes Treatment Clinical Notes May, Pre-op testing (ICD-10 - Z01.818) [facility] 08-25-2022 Evaluation note* Encounter Date Diagnosis Assessment Notes Treatment Notes Treatment Clinical Notes May, Chronic kidney disease, stage IV (severe) (ICD-10 - N18.4) We did talk about dialysis. We talked about dialysis access. He gave the patient a pamphlet handout today. Unfortunately I did review her vein mapping and she has no decent cephalic vein whatsoever in the bilateral upper extremities. Therefore we will need to proceed with a brachiobasilic AV fistula creation with subsequent transposition. This is a two-step process I explained this to the patient. We reviewed the risks and benefits as well as medical surgical tenderness she understands wished to proceed all her questions were addressed we will schedule this in the near future. [facility] 07-28-2022 Evaluation note* Encounter Date Diagnosis Assessment Notes Treatment Notes Treatment Clinical Notes Apr, Anemia of renal dise ase (ICD-10 - D63.1) Hb is within the goal and has adequate Iron stores. Continue oral iron daily Apr, Chronic kidney disea se, stage 5 (ICD-10 - N18.5) She has a CKD due to the ADPKD. Her b/l serum creatinine is 3.3- 3.6 mg/dL.. I have discussed with her the course and prognosis of disease. I explained to her the potential need of VIDEOTAPE SALES REPRESENTATIVE in future. I discussed with her different options of VIDEOTAPE SALES REPRESENTATIVE including PD, HTN renal transplant. I provide information about her renal transplant centers. She is interested in home dialysis and would like to prefer PD. She agrees to have AV fistula just in case if the PD does not work for her. I havea referred her again to vascular surgery for AV fistula. 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 Apr, Metabolic acidosis (ICD-10 - E87.2) She had metabolic acidosis due to the advanced CKD. Continue oral Sodium Bicarbonate Apr, Secondary hyperparathyroidism (ICD-10 - N25.81) She has a second hyperparathyroidism due to the hyperphosphatemia and CKD. I have advised low Phosphorus diet. Apr, ADPKD (autosomal dominant polycystic kidney disease) (ICD-10 - Q61.2) She has advanced CKD due to polycystic kidney disease. Apr, Gout (ICD-10 - M10.9) She cardoza s gout and follows with a supervisor pre wave. She takes Urolic and denies any recent gout flare [facility] 07-26-2022 Evaluation note* Encounter Date Diagnosis Assessment Notes Treatment Notes Treatment Clinical Notes Apr, Bilateral acute otitis media (ICD-10 - H66.93) Ear infections are often a secondary infection caused from an URI, the flu or allergies. Take medication as directed. Complete all doses, even if you feel better. Tylenol or ibuprofen can help with pain. Warm pack to area for comfort helps as well. Follow up with primary care provider if no improvement of symptoms. [facility] 05-24-2022 Evaluation note* Encounter Date Diagnosis Assessment Notes Treatment Notes Treatment Clinical Notes February, Screening for colon cancer (ICD-10 - Z12.11) [facility] 03-03-2022 Evaluation note* Encounter Date Diagnosis Assessment Notes Treatment Notes Treatment Clinical Notes Dec, Anemia of renal dise ase (ICD-10 - D63.1) Hb is within the goal and has adequate Iron stores. Continue oral iron daily Dec, Chronic kidney disea se, stage 5 (ICD-10 - N18.5) She has a CKD due to the ADPKD. Her serum creatinine is 3.6 mg/dL. Her renal function has been declining likely due to the progression of her CKD. I have discussed with her the course and prognosis of disease. I explained to her the potential need of VIDEOTAPE SALES REPRESENTATIVE in future. I discussed with her different options of VIDEOTAPE SALES REPRESENTATIVE including PD, HTN renal transplant. I provide information about her renal transplant centers. She is interested in home dialysis and would like to prefer PD. She agrees to have AV fistula just in case if the PD does not work for her. I have advised her to schedule an appointment with vascular surgery for AV fistula. 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 Dec, Metabolic acidosis (ICD-10 - E87.2) She had metabolic acidosis due to the advanced CKD. Continue oral Sodium Bicarbonate Dec, Secondary hyperparathyroidism (ICD-10 - N25.81) She has a second hyperparathyroidism due to the hyperphosphatemia and CKD. I have advised low Phosphorus diet. Dec, ADPKD (autosomal dominant polycystic kidney disease) (ICD-10 - Q61.2) She has advanced CKD due to polycystic kidney disease. Dec, Gout (ICD-10 - M10.9) She has gout and follows with a supervisor pre wave. She takes Urolic and denies any recent gout flare [facility] 06-25-2021 NotePatient Outreach (NEPHMN) MANDEEP PURI ([id number]) 1975 F Date Time Provider Department 03/30/21 PERRI BARRETT During your visit today, we recorded the following information about you: Allergies As of Date: 03/30/2021 Noted Allergy Reaction ALLOPURINOL 08/02/2019 4 - Hives Date Reviewed: 03/30/2021 Reviewed by: Perri Barrett MD - Fully Assessed Visit Diagnosis:Screening for genitourinary condition [Z13.89] Order(s):URINALYSIS, DIPSTICK ONLY [SQUA] Order #: [id number]. #:[id number] Prescriptions as of 03/30/2021 Sig: DULOXETINE 60 MG CAPSULE,GISSEL* Duloxetine Active 30 MG Oral * FEBUXOSTAT 40 MG TABLET Febuxostat Active 20 MG Oral * FERROUS SULFATE 325 MG (65 MG* Take 325 mg by mouth. LISINOPRIL 20 MG TABLET Lisinopril Active 20 MG Oral * SODIUM BICARBONATE 0.6 MOLAR FUROSEMIDE 20 MG TABLET Take 20 mg by mouth once rachel* Problem List As Of Date 03/30/2021 Noted Resolved ADPKD (autosomal dominant polycystic kidney dis*03/30/2021 Encounter Status:Closed by MAXX BAZAN on 04/02/21[facility] 03-30-2021 NoteHNO ID: [id number] Author: Perri Barrett MD Service: ? Author Type: Physician Type: Progress Notes Filed: 03/30/2021 10:25 AM Note Text: Mrs. Puri is a 45 year old from [place], [place] here with her Evan wilson seen at their request for my opinion regarding ADPKD. sees Nephrol at home. Advised to have AV Fistula placed to start dialysis 1) ADPKD Dx 2001 Pre-eclampsia with first/ only in 2002 2018 - sepsis Several Cyst ruptures Pain at some times with activity No stones No gross hematuria Fam Hx - bro, sis, father, grandfather, aunts and uncles Aunt and uncle ESRD about age 55 yrs, both received Tx Fa - of CAD 2) COVID - 2019 3) Fibromyalgia 4) Gout - sees Rheum. 2-3 attacks LT great toe. on Uloric. 5) anemia On po iron. Hb rising No past medical history on file. 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 Decaf TEA: occas SODA:occas ALCOHOL:no TOBACCO USE: no EXERCISE:no DIET: decreased dairy There is no problem list on file for this patient. Current Outpatient Medications Medication Sig - DULoxetine (CYMBALTA) 60 mg capsule Duloxetine Active 30 MG Oral Daily January 19, 2019 6:40am - febuxostat (ULORIC) 40 mg tab Febuxostat Active 20 MG Oral Daily August 02, 2019 5:51pm - ferrous sulfate 325 mg (65 mg iron) EC tablet Take 325 mg by mouth. - lisinopril (ZESTRIL, PRINIVIL) 20 mg tablet Lisinopril Active 20 MG Oral Daily August 05, 2019 4:31pm - SODIUM BICARBONATE 0.6 MOLAR - furosemide (LASIX) 20 mg tablet Take 20 mg by mouth once daily. No current facility-administered medications for this visit. Allergies: Review of patient's allergies indicates: No Known Allergies. REVIEW OF SYSTEMS: Pertinent positives and negatives in HPI. All other systems reviewed and negative. BP 122/77 Pulse 75 Temp 36.8 ?C (98.2 ?F) (Tympanic) Ht 154.9 cm (5' 1 ) Wt 93 kg (205 lb) BMI 38.73 kg/m? EXAM GENERAL: WD,WN, NAD SKIN: Normal color, turgor. No rashes, lesions HEAD: Sclera anicteric, conjunctiva non inflamed, oral mucosa moist, no lesions NECK: No bruits, adenopathy, masses. Supple. No JVD LUNGS: Clear bilat CARDIOVASC: RRR no murmurs, rubs, or gallops. ABDOM: Soft, no tenderness, no organomegaly. Kidneys palpable EXT: No edema. 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 Polycystin 1. 78% of total larger kidneys, ESRD, 55y/o PKD2 - later cysts, less severe, grow faster.Chromosome #4 PC 2. 14% of total.Less s Aunt. Uncle with ESRD - in age of 70 y/o.evere, ESRD Around 55 y/o 2 with transplants ISSUES Fam Hx / # cysts / age of pt Sx Thirst / Polyuria /Decr conc ability HTN / H-uria (35-50%) / creat / UTIs / Flank pain / Stones (20% - uric acid) / Proteinuria / Ca-rare PREDICTORS 1 > 2 Family ESRD < 58 y/o TKV - MRI > 600 cc/m , US ->16.5 cm HTN Male Urologic Sx before 35 y/o (gross hematuria, cyst infection, flank pain) EGFR ( decline > 5 ml/min.1.73 per yr) Age Dx Creat Proteinuria Na intake Low weight Incr LDL, uric acid, FGF23, LVMI Extra-renal - Intracranial aneurysms (VASQUEZ), biliary disease,tics, valve defects TREATMENT - reviewed with her 1) Fluid intake 3L+ Monitor U Osm <280 mOsm/L 2) Avoid caffeine 3) CEI / Statin / Tolvaptan 4) TKV on CT/ MRI >350 ml? 5) Cerebral MRI time of flight? 6) Low weight 7) Family hx 8) Low protein diet 9) Low salt diet - 2 gm 10) MTOR ? [facility] general Narrative - Reported * Type Description Date Medical History HTN (hypertension) Medical History Anxiety Medical History polycystic kidneys Medical History COVID 05-17-2020 Surgical History C section Surgical History BREAST REDUCTION Hospitalization History child Hospitalization History KIDNEY INFECTION 07/2019 Hospitalization History COVID AND DEHYDRATION [facility] 08-12-2020 History general Narrative - Reported* Type Description Date Medical History HTN (hypertension) Medical History Anxiety Medical History polycystic kidneys Medical History COVID 05-17-2020 Medical History end stage renal disease Surgical History C section Surgical History BREAST REDUCTION Surgical History colonoscopy 04/01/2022 Surgical History wisdom teeth 03/24/2022 Hospitalization History child Hospitalization History KIDNEY INFECTION 07/2019 Hospitalization History COVID AND DEHYDRATION [facility] 08-12-2020 History general Narrative - Reported* Type Description Date Medical History HTN (hypertension) Medical History Anxiety Medical History polycystic kidneys Medical History COVID 05-17-2020 Medical History end stage renal disease Surgical History C section Surgical History BREAST REDUCTION Surgical History colonoscopy 04/01/2022 Surgical History wisdom teeth 03/24/2022 Surgical History HYSTERECTOMY Hospitalization History child Hospitalization History KIDNEY INFECTION 07/2019 Hospitalization History COVID AND DEHYDRATION [facility] 08-12-2020 History general Narrative - Reported* Type Description Date Medical History HTN (hypertension) Medical History Anxiety Medical History polycystic kidneys Medical History COVID 05-17-2020 Medical History end stage renal disease Surgical History C section Surgical History BREAST REDUCTION Surgical History colonoscopy 04/01/2022 Surgical History wisdom teeth 03/24/2022 Surgical History HYSTERECTOMY Surgical History LEFT AV FISTULA 06/18/2022 Hospitalization History child Hospitalization History KIDNEY INFECTION 07/2019 Hospitalization History COVID AND DEHYDRATION [facility] Other Evaluation noteNo assessment information available [facility] Work Phone: Evaluation noteNo [employer] Other Assessments Diagnosis Acute sepsis (HCC)- Primary Acute cystitis without hematuria Acute cystitis Chronic renal failure, stage 4 (severe) (HCC) Polycystic kidney disease Polycystic kidney, unspecified type Advance Directives No Advanced Directives Records FoundDocuments on File Type Date Recorded Patient [employer] Expl anation Advance Directives and Living Will Power of Workflow Developer Advance Directive Response Recorded Date/ Time Advance Directives No March 9th, 20 18 12:26pm Summary Purpose Family History No Family History Records Found Relationship Condition Age at Onset Recorded Date/T citlaly family member End-stage renal disease Unknown grandparent Diabetes mellitus Unknown sister Diabetes mellitus Unknown Polycystic kidney disease Unknown Rheumatoid arthritis Unknown Fibromyalgia Unknown father Myocardial infarction Unknown brother Polycystic kidney disease Unknown Not Specified Fibromyalgia Unknown Chief Complaint and Reason for Visit Chief Complaint Screening Screening z01.818 ESRD Chief Complaint Screening Screening z01.818 ESRD ESRD Chief Complaint Screening Screening z01.818 ESRD ESRD ESRD Chief Complaint z01.818 ESRD ESRD ESRD left arm pain Z12.31 Additional Source Comments Reason for Visit (unrecogniz ed section and content) Reason Comments Chest Pain was seen at her PCP today and was told her urine has e.coli in it; CP started about 20-30 minutes ago Back Pain INFORMATION SOURCE (unrecogn ized section and content) DATE CREATED AUTHOR 08/04/2019 [facility] DATE CREATED AUTHOR AUTHOR'S ORGANIZ ATION 04/28/2020 [facility] DATE CREATED AUTHOR AUTHOR'S ORGANIZ ATION 09/12/2020 [facility] DATE CREATED AUTHOR AUTHOR'S ORGANIZ ATION 11/07/2021 [facility] DATE CREATED AUTHOR AUTHOR'S ORGANIZ ATION 02/27/2022 [facility] DATE CREATED AUTHOR AUTHOR'S ORGANIZ ATION 08/04/2022 [facility] DATE CREATED AUTHOR AUTHOR'S ORGANIZ ATION 08/10/2023 [facility] DATE CREATED AUTHOR AUTHOR'S ORGANIZ ATION 10/06/2023 [facility] DATE CREATED AUTHOR AUTHOR'S ORGANIZ ATION 10/14/2023 [facility] EPIC Care Teams (unrecognized sec tion and content) Team Status: Inactive Member Role Status Dates Ming Espinoza DO Primary Care Provider Active Jesus Parham MD Attending Provider Active Team Status: Inactive Member Role Status Dates Ming Espinoza DO Primary Care Provider Active Shabbir Jones MD Attending Provider Active Team Status: Inactive Member Role Status Dates Ming Espinoza DO Primary Care Provider Active Yaneth Muñoz MD Attending Provider Active Team Status: Active Member Role Status Dates Ming Espinoza DO Primary Care Provider Active Team Status: Inactive Member Role Status Dates Ming Alexis , DO Primary Care Provider Active Stanley Forman PA-C Emergency Provider Active Team Status: Inactive Member Role Status Zay Espinoza , DO Primary Care Provider Active Blake Champion , DO Attending Provider Active FOR RECORDS PERTAINING TO PATIENTS WHO ARE OR HAVE BEEN ENROLLED IN A CHEMICAL DEPENDENCY/SUBSTANCEABUSE PROGRAM, SOME INFORMATION MAY BE OMITTED. This clinical summary was aggregated from multiple sources. Caution should be exercised in using it in the provision of clinical care. This summary normalizes information from multiple sources, and as a consequence, information in this document may materially change the coding, format and clinical context of patient data. In addition, data may be omitted in some cases. CLINICAL DECISIONS SHOULD BE BASED ON THE PRIMARY CLINICAL RECORDS. [facility]. provides no warranty or guarantee of the accuracy or completeness of information in this document.
[2023-11-01 10:14] LABS: Estimated Average Glucose 105 mg/dL; Glycohemoglobin A1C 5.3 % (4.5-6.2)
[2023-11-01 10:22] LABS: Basophils Percent Auto 0.5 % (0.2-2.0); Eosinophils Absolute Auto 0.3 10^3/uL (0.0-0.7); Eosinophils Percent Auto 3.8 % (0.9-7.0); Hematocrit 41.1 % (36.0-48.0); Hemoglobin 13.1 g/dL (12.0-16.0); Immature Granulocytes Abs Auto 0.03 10^3/uL (0.00-0.03); Immature Granulocytes Pct Auto 0.5 % (0.0-0.5); Lymphocytes Absolute Auto 1.1 10^3/uL (1.2-3.8); Lymphocytes Percent Auto 17.2 % (20.5-60.0); Mean Corpuscular HGB Conc 31.9 g/dL (29.9-35.2); Mean Corpuscular Hemoglobin 28.2 pg (26.7-34.0); Mean Corpuscular Volume 88.4 fL (81.0-99.0); Mean Platelet Volume 8.7 fL (9.5-13.5); Monocytes Absolute Auto 0.4 10^3/uL (0.3-0.8); Monocytes Percent Auto 5.6 % (1.7-12.0); Neutrophils Absolute Auto 4.8 10^3/uL (1.4-6.5); Neutrophils Percent Auto 72.4 % (43.0-75.0); Platelet Count 349 10^3/uL (150-450); Red Blood Count 4.65 10^6/uL (4.20-5.40); White Blood Count 6.6 10^3/uL (4.0-11.0)
[2023-11-01 11:27] LABS: Alanine Aminotransferase 29 U/L (14-59); Albumin Globulin Ratio 0.9; Albumin Level 3.9 g/dL (3.4-5.0); Alkaline Phosphatase 99 U/L (46-116); Aspartate Amino Transferase 23 U/L (15-37); BUN Creatinine Ratio 11.6; Bilirubin Direct 0.1 mg/dL (0.0-0.2); Bilirubin Total 0.5 mg/dL (0.2-1.0); Calcium 9.7 mg/dL (8.5-10.1); Carbon Dioxide 24.4 mmol/L (21.0-32.0); Chloride 102 mmol/L (98-107); Chol HDL Ratio 4.6; Cholesterol 207 mg/dL (<=200); Estimated GFR (African America 58 (>=60); Estimated GFR (Non-African Ame 48 (>=60); Globulin 4.2 g/dL; Glucose 121 mg/dL (74-106); HDL Cholesterol 45 mg/dL (40-60); Magnesium 1.9 mg/dL (1.8-2.4); Phosphorus 3.6 mg/dL (2.6-4.7); Potassium 3.4 mmol/L (3.5-5.1); Sodium 139 mmol/L (136-145); Total Protein 8.1 g/dL (6.4-8.2); Triglycerides 180 mg/dL (<=150); Uric Acid 4.8 mg/dL (2.6-6.0)
[2023-11-04 13:09] LABS: BKV DNA, Quant PCR, Plasma Negative (Negative)
[2023-11-04 21:07] LABS: Tacrolimus (FK506), Blood 6.5 ng/mL (2.0-20.0)
== END 2023-11-01 09:05 | disposition home or self-care (01) ==
PROVIDERS: PCP Internal Medicine
DX: Z94.0 Kidney transplant status (principal); R73.01 Impaired fasting glucose
CPT/HCPCS: 36415; 80053; 80061; 80197; 82248; 83036; 83735; 84100; 84550; 85025; 87799

== ENCOUNTER 2023-11-29 07:31 | Outpatient (OUT) | payer OTHER, SELFPAY ==
--- OUTSIDE RECORDS SUMMARY | 2023-11-29 07:36 | XMS_ITS | CCD ---
Author Name Unknown Address [address] [place] [address] Organization [facility] Care Team Providers Care Dietitian Teaching Name Role Phone Ming Espinoza Primary Care Provider VIDAL MADRIGAL Attending Unavailable MING ESPINOZA Primary Care Unavailable Yaneth Muñoz Unavailable Shabbir Jones Unavailable Dipika Stinson Unavailable Jesus Parham Unavailable DO Ming Espinoza Primary Care Provider MD Shabbir Jones Attending Provider [phone] MD Yaneth Muñoz Attending Provider [phone] MD Jesus Parham Attending Provider [phone] Estefania Vo Unavailable DO Ming Espinoza Primary Care Provider EB Forman Emergency Provider DO Blake Champion Attending Provider [phone] JAVON, DR ZARAGOZA Admitting Unavailable DR MING [...] YANETH Admitting Unavailable TONI, YANETH Admitting Unavailable DR MING ESPINOZA Primary Care [...] YANETH Attending Unavailable TONI, YANETH Consulting Unavailable THIERNO, JOÃO Attending Unavailable THIERNO, JOÃO Attending Unavailable DOLORES, SUJIT Attending Unavailable LO, SREE Attending Unavailable DOLORES, SUJIT Attending Unavailable MING ESPINOZA Attending Unavailable MING ESPINOZA Referring Unavailable DO Ming Espinoza Primary Care Provider [phone] MD Perri Ceja Attending Provider Ming Espionza [facility] Unavailable Blake Champion Referring Unavailable Self, Referral Admitting Unavailable Self, Referral Attending Unavailable Ming Espinoza [facility] Unavailable Perri Ceja Admitting Unavailable Perri Ceja Attending Unavailable Allergies Allergy Classification Reported Allergen(s) Allergy Type Date of Onset Reaction(s) Facility (12 sources) Allopurinol; Translations: [ALLOPURINOL] Drug Allergy 08-02-2019 [place] (7 sources) venlafaxine; Translations: [VENLAFAXINE] Drug Allergy 06-05-2022 [facility] (1 source) venlafaxine; Translations: [VENLAFAXINE HCL] Drug Allergy 07-10-2021 [facility]ository (1 source) Allopurinol Drug Allergy 01-10-2023 [facility] Repository Medications Current Medications Medication Drug Class(es) Dates Sig (Normalized) Sig (Original) amoxicillin 875 mg / clavulanate 125 mg oral tablet (2 sources) Penicillin-class Antibacterial Start: 04-30-2022 take 1 tablet by mouth every twelve hours Amoxicillin-Pot Clavulanate 875-125 MG 1 tablet Orally every 12 hrs for 7 days Apr, Active {1 (ascorbic acid 7540 MG / polyethylene glycol 3350 33474 MG / potassium chloride 1200 MG / sodium ascorbate 88413 MG / sodium chloride 3200 MG Powder for Oral Solution) / 1 (polyethylene glycol 3350 411389 MG / potassium chloride 1000 MG / sodium chloride 2000 MG / sodium sulfate 9000 MG Powder for Oral Solution) } Pack [Plenvu] (1 source) Osmotic Laxative, Vitamin C Start: 02-26-2022 Plenvu 140 GM dose 1 pouch at 4pm, dose 2 pouch A & B at 11pm Orally twice a day for 1 days BIN:[id number] PCN: [id number] GROUP:[id number] ID:[id number] February, Active cetirizine hydrochloride 10 mg oral tablet (9 sources) Histamine-1 Receptor Antagonist take 1 tablet by mouth once daily as needed ZyrTEC Allergy 10 MG 1 tablet as needed Orally Once a day Active DULoxetine 60 mg delayed release oral capsule (15 sources) Serotonin and Norepinephrine Reuptake Inhibitor Start: 01-19-2019 take 60 mg by mouth once daily in the morning Duloxetine Active 60 MG PO Every morning January 18, 2019 11:00pm DULoxetine HCl ( CYMBALTA PO) Take by mouth 0 Active febuxostat 40 mg oral tablet (14 sources) Xanthine Oxidase Inhibitor Start: 08-02-2019 Febuxostat (Uloric) 40 mg Tablet Active 20 MG PO Every morning August 01, 2019 11:00pm take 0.5 tablet by mouth once da larissa Uloric 40 MG 1/2 tablet Orally Once a day Active ferrous sulfate 134 mg oral tablet (15 sources) Start: 04-01-2022 take 27 mg by mouth every other day Ferrous Sulfate Active 27 MG PO Q2D March 31, 2022 11:00pm Start: 08-05-2019 End: 04-01-2022 take 324 mg by mouth twice daily Ferrous Sulfate Discontinued 324 MG PO Twice daily 60 August 04, 2019 11:00pm April 01, 2022 6:05am Start: 01-20-2019 End: 08-02-2019 take 324 mg by mouth twice daily Ferrous Sulfate Discontinued 324 MG PO Twice daily 60 January 19, 2019 11:00pm August 02, 2019 4:52pm furosemide 20 mg oral tablet (9 sources) [...] (20 sources) Angiotensin Converting Enzyme Inhibitor Start: 9 End: 2 take 20 mg by mouth once daily in the morning Lisinopril Active 20 MG PO Every morning June 05, 2022 8:09am LISINOPRIL PO Ta ke by mouth 0 Active Multivitamin preparation (9 sources) take 1 tablet by mouth once daily Multi Vitamin - 1 tablet Orally Once a day Active sodium bicarbonate 650 mg oral tablet (14 sources) Start: 04-01-2022 take 650 mg by mouth twice daily Sodium Bicarbonate Active 650 MG PO Twice daily March 31, 2022 11:00pm 3 ml sodium chloride 9 mg/ml injection (4 sources) Start: 08-02-2019 sodium chloride flush 0.9 % injection 10 mL Start: 08-02-2019 sodium chlorid e flush 0.9 % injection 10 mL Start: 08-02-2019 End: 08-02-2019 0.9 % sodium chloride bolus Completed/Discontinued Medications Medication Drug Class(es) Dates Sig (Normalized) Sig (Original) acetaminophen 500 mg oral tablet (6 sources) Start: 08-02-2019 End: 08-02-2019 acetaminophen (TYLENOL) tablet 1,000 mg Start: 08-02-2019 take 2 tablets by mo [facility] once daily Acetaminophen (Tylenol Extra Strength) 500 mg Tablet Active 1000 MG PO Daily August 01, 2019 11:00pm calcitriol 0.03935 mg oral capsule (5 sources) Vitamin D3 Analog Start: 01-20-2019 End: 08-02-2019 Calcitriol (Rocaltrol) 0.25 mcg Capsule Discontinued 0.25 MCG PO MoWeFr@0900 January 19, 2019 11:00pm August 02, 2019 4:53pm calcium carbonate 500 mg chewable tablet (5 sources) Start: 01-19-2019 End: 08-02-2019 take 1 tablet by mouth four times daily Calcium Carbonate (Tums) 200 mg calcium (500 mg) Tablet,Chewable Discontinued 200 MG PO Four times daily January 18, 2019 11:00pm August 02, 2019 4:51pm cefTRIAXone (ROCEPHIN) 1 g in sterile water 10 mL IV syringe (1 source) Start: 08-02-2019 End: 08-02-2019 cefTRIAXone (ROCEPHIN) 1 g in sterile water 10 mL IV syringe cephalexin 500 mg oral capsule (15 sources) Cephalosporin Antibacterial Start: 04-01-2022 End: 06-05-2022 take 500 mg by mouth four times daily Cephalexin Discontinued 500 MG PO Four times daily March 31, 2022 11:00pm June 05, 2022 8:02am Start: 08-05-2019 End: 05-21-2020 take 1 capsule by mouth twice daily Cephalexin (Keflex) 500 mg capsule Discontinued 500 MG PO Twice daily 24 August 04, 2019 11:00pm May 21, 2020 8:38pm Start: 01-20-2019 End: 08-02-2019 take 1 capsule by mouth every eight hours Cephalexin (Keflex) 500 mg capsule Discontinued 500 MG PO Q8H 15 5 January 19, 2019 11:00pm August 02, 2019 4:51pm ciprofloxacin 250 mg oral tablet (5 sources) Quinolone Antimicrobial Start: 05-15-2020 End: 04-01-2022 take 1 tablet by mouth every twelve hours Ciprofloxacin Hcl (Cipro) 250 mg tablet Discontinued 250 MG PO Q12H 6 3 May 14, 2020 11:00pm April 01, 2022 6:03am ergocalciferol 1.25 mg oral capsule (5 sources) Provitamin D2 Compound Start: 01-20-2019 End: 08-02-2019 take 06087 [IU] by mouth every month Ergocalciferol (Vitamin D2) Discontinued 67437 UNIT PO every month January 19, 2019 11:00pm August 02, 2019 4:53pm hydroCHLOROthiazide 12.5 mg / lisinopril 20 mg oral tablet (5 sources) Thiazide Diuretic, Angiotensin Converting Enzyme Inhibitor Start: 01-19-2019 End: 08-05-2019 take 1 tablet by mouth once daily Lisinopril-Hydroch lorothiazide Discontinued 1 TAB PO Daily January 18, 2019 11:00pm August 05, 2019 3:31pm Iopamidol (1 source) Radiographic Contrast Agent Start: 08-02-2019 End: 08-02-2019 iopamidol (ISOVUE-370) 76 % injection 100 mL Problems Active Problems Problem Classification Problem Date Documented Date Episodic/Chronic Acute and chronic tonsillitis (9 sources) Amygdalolith; Translations: [Other chronic diseases of tonsils and adenoids] Chronic Acute and unspecified renal failure (1 source) Chronic renal failure; Translations: [Chronic renal failure, stage 4 (severe) ([facility])] Chronic Acute and unspecified renal failure (5 sources) Injury of kidney; Translations: [Acute kidney failure, unspecified] 01-19-2019 Episodic Acute myocardial infarction (5 sources) Myocardial infarction; Translations: [Non-ST elevation (NSTEMI) myocardial infarction] 08-03-2019 Chronic Chronic kidney disease (20 sources) Chronic kidney disease stage 4; Translations: [Chronic kidney disease, stage 4 (severe)] Onset: 2 Resolved: 2 Chronic Complication of device; implant or graft (2 sources) Other complication of kidney transplant; Translations: [Other complication of kidney transplant] Onset: 3 Chronic Deficiency and other anemia (14 sources) Anemia of renal disease; Translations: [Anemia [...] Onset: 2 Chronic Fever of unknown origin (5 sources) Fever; Translations: [Fever, unspecified] 05-22-2020 Episodic Genitourinary congenital anomalies (20 sources) Polycystic kidney disease, adult type; Translations: [Polycystic kidney, adult type] Onset: 2 Resolved: 2 Chronic Genitourinary congenital anomalies (1 source) Multiple renal cysts; Translations: [Polycystic kidney disease] Episodic Genitourinary symptoms and ill-defined conditions (5 sources) Dysuria; Translations: [Dysuria] 01-19-2019 Episodic Gout and other crystal arthropathies [...] source) Metabolic acidemia, unspecified Episodic Nutritional deficiencies (5 sources) Vitamin D deficiency; Translations: [Vitamin D [...] [Hemorrhage, not elsewhere classified] 06-20-2022 Episodic Other circulatory disease (1 source) Hemorrhage, not elsewhere classified; Translations: [Postoperative ecchymosis] 06-20-2022 Episodic Other connective tissue disease (2 sources) Pain in left arm; Translations: [Pain in left arm] 06-20-2022 Episodic Other diseases of kidney and ureters (14 sources) Secondary hyperparathyroidism; Translations: [Secondary hyperparathyroidism of renal origin] 01-19-2019 Chronic Other diseases of kidney and ureters (4 sources) Secondary hyperparathyroidism of renal origin; Translations: [SEC HYPERPARATHYROIDISM RENAL ORIGN] Onset: 2 Resolved: 2 Chronic Other inflammatory condition of skin (5 sources) Pruritus of skin; Translations: [Pruritus, unspecified] 08-04-2019 Episodic Other nervous system disorders (2 sources) Myopathy, unspecified; Translations: [Myopathy, unspecified] Onset: 3 Chronic Other non-traumatic joint disorders (1 source) Pain in unspecified joint; Translations: [Pain in unspecified joint] Onset: 4 Episodic Other nutritional; endocrine; and metabolic disorders (5 sources) Hyperuricemia; Translations: [Hyperuricemia without signs of inflammatory arthritis and tophaceous disease] 01-19-2019 Episodic Ovarian cyst (4 sources) Unspecified ovarian cyst, left side; Translations: [UNSPECIFIED OVARIAN CYST LEFT SIDE] Onset: 2 Episodic Septicemia (except in labor) (6 sources) Sepsis; Translations: [Sepsis due to urinary tract infection] 08-03-2019 Episodic Unclassified (2 sources) Kidney Follow-up; Translations: [Kidney Follow-up] Onset: 3 Unclassified (1 source) Acidosis, unspecified; Translations: [Acidosis, unspecified] Onset: 2 Unclassified (2 sources) Kidney Transplant; Translations: [Kidney Transplant] Onset: 3 Unclassified (1 source) Encounter for screening mammogram for malignant neoplasm of breast; Translations: [Encounter for screening mammogram for malignant neoplasm of breast] Onset: 3 Urinary tract infections (16 sources) Acute cystitis; Translations: [Urinary tract infectious [...] 10-23-2022 Episodic Other aftercare (2 sources) Other residential (current) drug therapy; Translations: [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 [facility] Comment on above: Result Comment: Nega tive <1:80 Borderline 1:80 Positive >1:80 ICAP nomenclature: AC-0 For more information about Hep-2 cell patterns use ANApatterns.org, the official website for the International Consensus on Antinuclear Antibody ([facility]) Patterns (ICAP). Performed at: - [facility] [id number] Tax Assistant: Gabriel Whitman PhD, Phone: [phone] PERFORMED BY: [place] [address] PATHOLOGIST LOG POND WORKER ANAHY MCKEE M.D. Performed By: #### C K, CRP, ESR, CBC, CMP #### [address] #### [facility] #### [facility] , Alanine aminotransferase [En zymatic activity/volume] in Serum or PlasmaOrdered By: Perri Ceja on 11-06-2023 ALT [Catalytic activity/Vol] 20 U/L [facility] Albumin [Mass/volume] in Ser um or Plasma by Bromocresol green (BCG) dye binding methoOrdered By: Perri Ceja on 11-06-2023 Albumin BCG dye [Mass/Vol] 4.7 g/dL 3.5-5.7 [facility] Alkaline phosphatase [Enzyma tic activity/volume] in Serum or PlasmaOrdered By: Perri Ceja on 11-06-2023 ALP [Catalytic activity/Vol] 96 U/L 34-104 [facility] Aspartate aminotransferase [ Enzymatic activity/volume] in Serum or PlasmaOrdered By: Perri Ceja on 11-06-2023 AST [Catalytic activity/Vol] 16 U/L 13-39 [facility] Basophils Auto (Bld) [#/Vol] Ordered By: Perri Ceja on 11-06-2023 Basophils (Bld) [#/Vol] 0.1 10*3/uL 0.0-0.2 [facility] Basophils/100 WBC Auto (Bld) Ordered By: Perri Ceja on 11-06-2023 Basophils/100 WBC (Bld) 0.7 % . [facility] Bilirubin.total [Mass/volume ] in Serum or PlasmaOrdered By: Perri Ceja on 11-06-2023 Bilirubin [Mass/Vol] 0.4 mg/dL 0.3-1.0 [facility] C reactive protein [Mass/vol ume] in Serum or PlasmaOrdered By: Perri Ceja on 11-06-2023 CRP [Mass/Vol] 2.0 mg/dL 0.0-0.5 [facility] C-Reactive Proteinon 024 C-Reactive Protein 2.0 mg/dL High 0.0-0.5 [facility] Comment on above: Result Comment: PERF ORMED BY: [place] [address] PATHOLOGIST LOG POND WORKER ANAHY MCKEE M.D. Performed By: #### C K, CRP, ESR, CBC, CMP #### [place] [address] [place] #### [facility] #### [facility] , Calcium [Mass/volume] in Ser um or PlasmaOrdered By: Perri Ceja on 11-06-2023 Calcium [Mass/Vol] 10.3 mg/dL 8.6-10.3 [facility] Carbon dioxide, total [Moles /volume] in Serum or PlasmaOrdered By: Perri Ceja on 11-06-2023 CO2 [Moles/Vol] 26.1 mmol/L 21.0-31.0 [facility] Chloride [Moles/volume] in S aislinn or PlasmaOrdered By: Perri Ceja on 11-06-2023 Chloride [Moles/Vol] 104 mmol/L 98-107 [facility] Complete Blood Count Auto Di ffon 11-06-2023 Basophils (Bld) [#/Vol] 0.1 10*3/uL Normal 0.0-0.2 [facility] Comment on above: Performed By: #### C K, CRP, ESR, CBC, CMP #### [place] [address] [place] #### [facility] #### [facility] , Basophils/100 WBC (Bld) 0.7 % Normal . [facility] Comment on above: Performed By: #### C K, CRP, ESR, CBC, CMP #### [place] [address] [place] #### [facility] #### [facility] , Eosinophils (Bld) [#/Vol] 0.3 10*3/uL Normal 0.0-0.45 [facility] Comment on above: Performed By: #### C K, CRP, ESR, CBC, CMP #### [place] [address] [place] #### [facility] #### [facility] , Eosinophils/100 WBC (Bld) 3.0 % Normal . [facility] Comment on above: Performed By: #### C K, CRP, ESR, CBC, CMP #### [place] [address] [place] #### [facility] #### [facility] , Erythrocyte distribution width (RBC) [Ratio] 15.3 % Normal 11.9-15.3 [facility] Comment on above: Performed By: #### C K, CRP, ESR, CBC, CMP #### [place] [address] [place] #### [facility] #### [facility] , Hematocrit (Bld) [Volume fraction] 38.9 % Normal 34.0-46.4 [facility] Comment on above: Performed By: #### C K, CRP, ESR, CBC, CMP #### [place] [address] [place] #### [facility] #### [facility] , Hemoglobin (Bld) [Mass/Vol] 13.1 g/dL Normal 11.8-15.4 [facility] Comment on above: Performed By: #### C K, CRP, ESR, CBC, CMP #### [address] #### [place] #### [facility] , Lymphocytes (Bld) [#/Vol] 1.5 10*3/uL Normal 1.00-4.8 [facility] Comment on above: Performed By: #### C K, CRP, ESR, CBC, CMP #### [place] [address] [place] #### [facility] #### [facility] , Lymphocytes/100 WBC (Bld) 17.6 % Normal . [facility] Comment on above: Performed By: #### C K, CRP, ESR, CBC, CMP #### [place] [address] [place] #### [facility] #### [facility] , MCH (RBC) [Entitic mass] 28.4 pg Normal 24.7-34.3 [facility] Comment on above: Performed By: #### C K, CRP, ESR, CBC, CMP #### [place] [address] [place] #### [facility] #### [facility] , MCV (RBC) [Entitic vol] 84.6 fL Normal 80-100 [facility] Comment on above: Performed By: #### C K, CRP, ESR, CBC, CMP #### [facility] [address] [place] [address] [place] #### [facility] #### [facility] , Mean Corpuscular HGB Conc 33.6 g/dL Normal 32.0-35.0 [facility] Comment on above: Performed By: #### C K, CRP, ESR, CBC, CMP #### [place] [address] [place] #### [facility] #### [facility] , Monocytes (Bld) [#/Vol] 0.6 10*3/uL Normal 0.0-0.8 [facility] Comment on above: Performed By: #### C K, CRP, ESR, CBC, CMP #### [place] [address] [place] #### [facility] #### [facility] , Monocytes/100 WBC (Bld) 6.6 % Normal . [facility] Comment on above: Performed By: #### C K, CRP, ESR, CBC, CMP #### [place] [address] [place] #### [facility] #### [facility] , Neutrophils (Bld) [#/Vol] 6.3 10*3/uL Normal 1.8-7.7 [facility] Comment on above: Performed By: #### C K, CRP, ESR, CBC, CMP #### [place] [address] [place] #### [facility] #### [facility] , Neutrophils/100 WBC (Bld) 72.1 % Normal . [facility] Comment on above: Performed By: #### C K, CRP, ESR, CBC, CMP #### [place] [address] [place] #### [facility] #### [facility] , NRBC% 0.1 /100{WBC} Normal 0-0.5 [facility] Comment on above: Performed By: #### C K, CRP, ESR, CBC, CMP #### [facility] [address] [place] [address] #### [facility] #### [facility] , Platelet mean volume (Bld) [Entitic vol] 6.9 fL Normal 6.3-10.7 [facility] Comment on above: Performed By: #### C K, CRP, ESR, CBC, CMP #### [address] #### [place] #### [facility] , Platelets (Bld) [#/Vol] 393 10*3/uL Normal 150-450 [facility] Comment on above: Performed By: #### C K, CRP, ESR, CBC, CMP #### [place] [address] [place] #### [facility] #### [facility] , RBC (Bld) [#/Vol] 4.60 10*6/uL Normal 3.60-5.00 [facility] Comment on above: Performed By: #### C K, CRP, ESR, CBC, CMP #### [address] #### [place] #### [facility] , WBC (Bld) [#/Vol] 8.8 10*3/uL Normal 3.8-11.6 [facility] Comment on above: Performed By: #### C K, CRP, ESR, CBC, CMP #### [place] [address] [place] #### [facility] #### [facility] , Comprehensive Metabolic Pane jonathan 11-06-2023 Albumin [Mass/Vol] 4.7 g/dL Normal 3.5-5.7 [facility] Comment on above: Performed By: #### C K, CRP, ESR, CBC, CMP #### [address] #### [place] #### [facility] , Albumin/Globulin [Mass ratio] 1.6 {ratio} Normal [facility] Comment on above: Performed By: #### C K, CRP, ESR, CBC, CMP #### [place] [address] [place] #### [facility] #### [facility] , ALP [Catalytic activity/Vol] 96 U/L Normal 34-104 [facility] Comment on above: Performed By: #### C K, CRP, ESR, CBC, CMP #### [address] #### [place] #### [facility] , ALT [Catalytic activity/Vol] 20 U/L Normal 7-52 [facility] Comment on above: Performed By: #### C K, CRP, ESR, CBC, CMP #### [address] #### [facility] #### [facility] , Anion gap [Moles/Vol] 12.7 mmol/L Normal 6.0-15.0 [facility] Comment on above: Performed By: #### C K, CRP, ESR, CBC, CMP #### [place] [address] [place] #### [facility] #### [facility] , AST [Catalytic activity/Vol] 16 U/L Normal 13-39 [facility] Comment on above: Performed By: #### C K, CRP, ESR, CBC, CMP #### [facility] [address] [place] [address] [place] #### [facility] #### [facility] , Bilirubin [Mass/Vol] 0.4 mg/dL Normal 0.3-1.0 [facility] Comment on above: Performed By: #### C K, CRP, ESR, CBC, CMP #### [facility] [address] [place] [address] [place] #### [facility] #### [facility] , Calcium [Mass/Vol] 10.3 mg/dL Normal 8.6-10.3 [facility] Comment on above: Performed By: #### C K, CRP, ESR, CBC, CMP #### [facility] [address] [place] [address] [place] #### [facility] #### [facility] , Chloride [Moles/Vol] 104 mmol/L Normal 98-107 [facility] Comment on above: Performed By: #### C K, CRP, ESR, CBC, CMP #### [place] [address] [place] #### [facility] #### [facility] , CO2 [Moles/Vol] 26.1 mmol/L Normal 21.0-31.0 [facility] Comment on above: Performed By: #### C K, CRP, ESR, CBC, CMP #### [address] #### [place] #### [facility] , Creatinine [Mass/Vol] 1.17 mg/dL Normal 0.60-1.20 [facility] Comment on above: Performed By: #### C K, CRP, ESR, CBC, CMP #### [facility] [address] [place] [address] [place] #### [place] #### [facility] , GFR/1.73 sq M.predicted MDRD (S/P/Bld) [Vol rate/Area] 57.919 mL/min/{1.73_m2} [facility] Comment on above: Performed By: #### C K, CRP, ESR, CBC, CMP #### [place] [address] [place] #### [facility] #### [facility] , Globulin (S) [Mass/Vol] 3.0 g/dL Normal [facility] Comment on above: Performed By: #### C K, CRP, ESR, CBC, CMP #### [facility] [address] [place] [address] [place] #### [facility] #### [facility] , Glucose [Mass/Vol] 91 mg/dL Normal 70-100 [facility] Comment on above: Result Comment: [facility] Glucose Reference Range is dependent on time and content of last meal. Glucose of more than 200 mg/dL in a nonstressed, ambulatory subject supports the diagnosis of Diabetes Mellitus. ADA recommended reference range Performed By: #### C K, CRP, ESR, CBC, CMP #### [place] [address] [place] #### [place] #### [facility] , Potassium [Moles/Vol] 3.8 mmol/L Normal 3.5-5.1 [facility] Comment on above: Performed By: #### C K, CRP, ESR, CBC, CMP #### [place] [address] [place] #### [facility] #### [facility] , Protein [Mass/Vol] 7.7 g/dL Normal 6.4-8.9 [facility] Comment on above: Performed By: #### C K, CRP, ESR, CBC, CMP #### [place] [address] [place] #### [facility] #### [facility] , Sodium [Moles/Vol] 139 mmol/L Normal 136-145 [facility] Comment on above: Performed By: #### C K, CRP, ESR, CBC, CMP #### [place] [address] [place] #### [facility] #### [facility] , Urea nitrogen [Mass/Vol] 17 mg/dL Normal 7-25 [facility] Comment on above: Performed By: #### C K, CRP, ESR, CBC, CMP #### [facility] [address] [place] [address] #### [facility] #### [facility] , Creatine Kinaseon 11-06-2023 CK [Catalytic activity/Vol] 30 U/L Normal 30-223 [facility] Comment on above: Result Comment: PERF ORMED BY: [place] [address] PATHOLOGIST LOG POND WORKER ANAHY MCKEE M.D. Performed By: #### C K, CRP, ESR, CBC, CMP #### [facility] [address] [place] [address] #### [facility] #### [facility] , Creatine kinase [Enzymatic a ctivity/volume] in Serum or PlasmaOrdered By: Perri Ceja on 11-06-2023 CK [Catalytic activity/Vol] 30 U/L [facility] Creatinine [Mass/volume] in Serum or PlasmaOrdered By: Perri Ceja on 11-06-2023 Creatinine [Mass/Vol] 1.17 mg/dL 0.60-1.20 [facility] Eosinophils Auto (Bld) [#/Vo l]Ordered By: Perri Ceja on 11-06-2023 Eosinophils (Bld) [#/Vol] 0.3 10*3/uL 0.0-0.45 [facility] Eosinophils/100 WBC Auto (Bl d)Ordered By: Perri Ceja on 11-06-2023 Eosinophils/100 WBC (Bld) 3.0 % . [facility] Erythrocyte Sedimentation Ra mathieu 11-06-2023 ESR (Bld) [Velocity] 49 mm/h High 0-19 [facility] Comment on above: Result Comment: PERF ORMED BY: [place] [address] PATHOLOGIST LOG POND WORKER ANAHY MCKEE M.D. Performed By: #### C K, CRP, ESR, CBC, CMP #### [place] [address] [place] #### [facility] #### [facility] , Erythrocyte distribution wid th Auto (RBC) [Ratio]Ordered By: Perri Ceja on 11-06-2023 Erythrocyte distribution width (RBC) [Ratio] 15.3 % 11.9-15.3 [facility] Erythrocyte sedimentation ra te by Photometric methodOrdered By: Perri Ceja on 11-06-2023 ESR Photometric method (Bld) [Velocity] 49 mm/hr 0-19 [facility] Globulin Calc (S) [Mass/Vol] Ordered By: Perri Ceja on 11-06-2023 Globulin (S) [Mass/Vol] 3.0 g/dL [facility] Glucose [Mass/volume] in Ser um or PlasmaOrdered By: Perri Ceja on 11-06-2023 Glucose [Mass/Vol] 91 mg/dL 70-100 [facility] Comment on above: ADA recommended refe rence rangeRandom Glucose Reference Range is dependent on time and content of last meal. Glucose of more than 200 mg/dL in a nonstressed, ambulatory subject supports the diagnosis of Diabetes Mellitus. Hematocrit Auto (Bld) [Volum e fraction]Ordered By: Perri Ceja on 11-06-2023 Hematocrit (Bld) [Volume fraction] 38.9 % 34.0-46.4 [facility] Hemoglobin [Mass/volume] in BloodOrdered By: Perri Ceja on 11-06-2023 Hemoglobin (Bld) [Mass/Vol] 13.1 g/dL 11.8-15.4 [facility] Leukocytes [#/volume] correc noah for nucleated erythrocytes in Blood by Automated counOrdered By: Perri Ceja on 11-06-2023 WBC corrected for nucl RBC Auto (Bld) [#/Vol] 8.8 10*3/uL 3.8-11.6 [facility] Lymphocytes Auto (Bld) [#/Vo l]Ordered By: Perri Ceja on 11-06-2023 Lymphocytes (Bld) [#/Vol] 1.5 10*3/uL 1.00-4.8 [facility] Lymphocytes/100 WBC Auto (Bl d)Ordered By: Perri Ceja on 11-06-2023 Lymphocytes/100 WBC (Bld) 17.6 % . [facility] MCH Auto (RBC) [Entitic mass ]Ordered By: Perri Ceja on 11-06-2023 MCH (RBC) [Entitic mass] 28.4 pg 24.7-34.3 [facility] MCHC Auto (RBC) [Mass/Vol]Or dered By: Perri Ceja on 11-06-2023 MCHC (RBC) [Mass/Vol] 33.6 g/dL 32.0-35.0 [facility] MCV Auto (RBC) [Entitic vol] Ordered By: Perri Ceja on 11-06-2023 MCV (RBC) [Entitic vol] 84.6 fL 80-100 [facility] Monocytes Auto (Bld) [#/Vol] Ordered By: Perri Ceja on 11-06-2023 Monocytes (Bld) [#/Vol] 0.6 10*3/uL 0.0-0.8 [facility] Monocytes/100 WBC Auto (Bld) Ordered By: Perri Ceja on 11-06-2023 Monocytes/100 WBC (Bld) 6.6 % . [facility] Neutrophils Auto (Bld) [#/Vo l]Ordered By: Perri Ceja on 11-06-2023 Neutrophils (Bld) [#/Vol] 6.3 10*3/uL 1.8-7.7 [facility] Neutrophils/100 WBC Auto (Bl d)Ordered By: Perri Ceja on 11-06-2023 Neutrophils/100 WBC (Bld) 72.1 % . [facility] No Panel InformationOrdered By: Perri Ceja on 11-06-2023 Estimated GFR (CKD-EPI) 57.919 mL/Min [facility] Creatinine Clearance (Chem N/A [facility] Nucleated erythrocytes [Pres ence] in Blood by Automated countOrdered By: Perri Ceja on 11-06-2023 Nucleated RBC Auto Ql (Bld) 0.1 /100{WBC} 0-0.5 [facility] Platelet mean volume Auto (B ld) [Entitic vol]Ordered By: Perri Ceja on 11-06-2023 Platelet mean volume (Bld) [Entitic vol] 6.9 fL 6.3-10.7 [facility] Platelets Auto (Bld) [#/Vol] Ordered By: Perri Ceja on 11-06-2023 Platelets (Bld) [#/Vol] 393 10*3/uL 150-450 [facility] Potassium [Moles/volume] in Serum or PlasmaOrdered By: Perri Ceja on 11-06-2023 Potassium [Moles/Vol] 3.8 mmol/L 3.5-5.1 [facility] Protein [Mass/volume] in Ser um or PlasmaOrdered By: Perri Ceja on 11-06-2023 Protein [Mass/Vol] 7.7 g/dL 6.4-8.9 [facility] RBC Auto (Bld) [#/Vol]Ordere d By: Perri Ceja on 11-06-2023 RBC (Bld) [#/Vol] 4.60 10*6/uL 3.60-5.00 [facility] Serum or plasma albumin/glob ulin mass ratioOrdered By: Perri Ceja on 11-06-2023 Albumin/Globulin [Mass ratio] 1.6 {ratio} [facility] Serum or plasma anion gap de terminationOrdered By: Perri Ceja on 11-06-2023 Anion gap [Moles/Vol] 12.7 mmol/L 6.0-15.0 [facility] Sodium [Moles/volume] in Ser um or PlasmaOrdered By: Perri Ceja on 11-06-2023 Sodium [Moles/Vol] 139 mmol/L 136-145 [facility] Urea nitrogen [Mass/volume] in Serum or PlasmaOrdered By: Perri Ceja on 11-06-2023 Urea nitrogen [Mass/Vol] 17 mg/dL 7-25 [facility] WBC Auto (Bld) [#/Vol]Ordere d By: Perri Ceja on 11-06-2023 WBC (Bld) [#/Vol] 8.8 10*3/uL 3.8-11.6 [facility] Orders Onlyon 10-02-2023 Orders Only Normal [facility] Follow-Upon 11-27-2023 Follow-Up Normal [facility] BILIRUBIN, DIRECTon 08-26-20 Magnesium [Mass/Vol] 0.1 mg/dL Normal 0-0.[address] [facility] Comment on above: Performed By: #### L [id number] ####[facility] (BEAKER)[address] [place] [address] CBC WITH AUTO DIFFERENTIALon 08-26-2023 Basophils (Bld) [#/Vol] 0.05 10*3/uL Normal 0.00-0.20 [facility] Comment on above: Performed By: #### L [id number] ####[facility] ([facility])[address] [place] [address] Basophils/100 WBC (Bld) 0.6 % Normal 0.0-1.0 [facility] Comment on above: Performed By: #### L [id number] ####[facility] [place] [address] Eosinophils (Bld) [#/Vol] 0.20 10*3/uL Normal 0.00-0.50 [facility] Comment on above: Performed By: #### L [id number] ####[facility] ([facility]AK[facility])[address] [place] [address] Eosinophils/100 WBC (Bld) 2.5 % Normal 0.0-6.0 [facility] Comment on above: Performed By: #### L [id number] ####[facility] ([facility])[address] [place] [address] Erythrocyte distribution width (RBC) [Ratio] 14.4 % Normal 11.5-15.0 [facility] Comment on above: Performed By: #### L [id number] ####[facility] ([facility])[address] [place] [address] ERYTHROCYTE MEAN CORPUSCULAR HEMOGLOBIN CONCENTRATION (G/DL) BY AUTOMATED 32.9 g/dL Normal 32.0-35.0 [facility] Comment on above: Performed By: #### L [id number] ####[facility] ([facility])[address] [place] [address] Hematocrit (Bld) [Volume fraction] 40.4 % Normal 36.0-48.0 [facility] Comment on above: Performed By: #### L [id number] ####[facility] ([facility])[address] [place] [address] Hemoglobin (Bld) [Mass/Vol] 13.3 g/dL Normal 12.0-15.0 [facility] Comment on above: Performed By: #### L [id number] ####[facility] ([facility])[address] [place] [address] Immature granulocytes (Bld) [#/Vol] 0.06 10*3/uL Normal 0.00-0.20 [facility] Comment on above: Performed By: #### L [id number] ####[facility] ([facility])[address] [place] [address] Immature granulocytes/100 WBC (Bld) 0.7 % Normal 0.0-1.0 [facility] Comment on above: Performed By: #### L [id number] ####[facility] ([facility])[address] [place] [address] Lymphocytes (Bld) [#/Vol] 1.19 10*3/uL Low 1.20-4.00 [facility] Comment on above: Performed By: #### L [id number] ####[facility] ([facility]ER)[address] [place] [address] Lymphocytes/100 WBC (Bld) 14.6 % Low 20.0-45.0 [facility] Comment on above: Performed By: #### L [id number] ####[facility] ([facility]AKER)[address] [place] [address] MCH (RBC) [Entitic mass] 28.4 pg Normal 27.0-33.0 [facility] Comment on above: Performed By: #### L [id number] ####[facility] ([facility])[address] [place] [address] MCV (RBC) [Entitic vol] 86.1 fL Normal 82.0-98.0 [facility] Comment on above: Performed By: #### L [id number] ####[facility] ([facility])[address] [place] [address] Monocytes (Bld) [#/Vol] 0.42 10*3/uL Normal 0.10-1.00 [facility] Comment on above: Performed By: #### L [id number] ####[facility] [place] [address] Monocytes/100 WBC (Bld) 5.2 % Normal 5.0-12.0 [facility] Comment on above: Performed By: #### L [id number] ####[facility] ([facility])[address] [place] [address] Neutrophils (Bld) [#/Vol] 6.22 10*3/uL Normal 1.60-7.60 [facility] Comment on above: Performed By: #### L [id number] ####[facility] [place] [address] Neutrophils/100 WBC (Bld) 76.4 % High 40.0-72.0 [facility] Comment on above: Performed By: #### L [id number] ####[facility] ([facility])[address] [place] [address] NRBC (PER 100 WBCS) BY AUTOMATED COUNT 0.0 % Normal 0 [facility] Comment on above: Performed By: #### L [id number] ####[facility] ([facility]AKER)[address] [place] [address] PLATELETS (10*3/UL) IN BLOOD AUTOMATED COUNT 374 10*3/uL Normal 150-400 [facility] Comment on above: Performed By: #### L [id number] ####[facility] ([facility]AKER)[address] [place] [address] RBC (Bld) [#/Vol] 4.69 10*6/uL Normal 3.80-5.00 [facility] Comment on above: Performed By: #### L [id number] ####[facility] [place] [address] WBC (Bld) [#/Vol] 8.14 10*3/uL Normal 4.00-10.60 [facility] Comment on above: Performed By: #### L [id number] ####[facility] [place] [address] COMPREHENSIVE METABOLIC PANE Jonathan 08-26-2023 Albumin [Mass/Vol] 4.7 g/dL Normal 3.5-5.7 [facility] Comment on above: Performed By: #### L [id number] ####[facility] ([facility])[address] [place] [address] ALP [Catalytic activity/Vol] 90 U/L Normal 34-104 [facility] Comment on above: Performed By: #### L [id number] ####[facility] ([facility])[address] [place] [address] ALT [Catalytic activity/Vol] 26 U/L Normal 7-52 [facility] Comment on above: Performed By: #### L [id number] ####[facility] ([facility])[address] [place] [address] Anion gap [Moles/Vol] 12 mmol/L Normal 7-20 [facility] Comment on above: Performed By: #### L [id number] ####[facility] ([facility])[address] [place] [address] AST [Catalytic activity/Vol] 22 U/L Normal 13-39 [facility] Comment on above: Performed By: #### L [id number] ####[facility] ([facility])[address] [place] [address] Bilirubin [Mass/Vol] 0.4 mg/dL Normal 0.3-1.[address] [facility] Comment on above: Performed By: #### L [id number] ####[facility] ([facility])[address] [place] [address] Calcium [Mass/Vol] 9.6 mg/dL Normal 8.6-10.3 [facility] Comment on above: Performed By: #### L [id number] ####[facility] ([facility])[address] [place] [address] Chloride [Moles/Vol] 103 mmol/L Normal 98-[address] [facility] Comment on above: Performed By: #### L [id number] ####[facility] ([facility])[address] [place] [address] CO2 [Moles/Vol] 26 mmol/L Normal 21-31 [facility] Comment on above: Performed By: #### L [id number] ####[facility] ([facility])[address] [place] [address] Creatinine [Mass/Vol] 1.12 mg/dL Normal 0.60-1.20 [facility] Comment on above: Performed By: #### L [id number] ####[facility] ([facility])[address] [place] [address] GLOMERULAR FILTRATION RATE ML/MIN/1.73 SQ M.PREDICTED 61.0 mL/min/1.73m*2 Normal >60.0 [facility] Comment on above: Result Comment: [facility]???s estimated glomerular filtration rate (eGFR) will [...] of individuals. Performed By: #### L [id number] ####[facility] [place] [address] Glucose [Mass/Vol] 125 mg/dL High 70-100 [facility] Comment on above: Performed By: #### L [id number] ####[facility] ([facility])[address] [place] [address] Potassium [Moles/Vol] 3.1 mmol/L Low 3.5-5.1 [facility] Comment on above: Performed By: #### L [id number] ####[facility] ([facility])[address] [place] [address] Protein [Mass/Vol] 7.4 g/dL Normal 6.0-8.3 [facility] Comment on above: Performed By: #### L [id number] ####[facility] ([facility])[address] [place] [address] Sodium [Moles/Vol] 138 mmol/L Normal 136-145 [facility] Comment on above: Performed By: #### L [id number] ####[facility] ([facility])[address] [place] [address] Urea nitrogen [Mass/Vol] 15 mg/dL Normal 7-25 [facility] Comment on above: Performed By: #### L [id number] ####[facility] ([facility]ER)[address] [place] [address] UREA NITROGEN/CREATININE (MASS RATIO) IN SER/PLAS 13.4 Normal [facility] Comment on above: Performed By: #### L [id number] ####[facility] ([facility])[address] [place] [address] HEMOGLOBIN A1Con 08-26-2023 Glucose [Mass/Vol] 108 mg/dL Normal [facility] Comment on above: Performed By: #### L [id number] ####[facility] ([facility]ER)[address] [place] [address] HbA1c (Bld) [Mass fraction] 5.4 % Normal 4.0-6.0 [facility] Comment on above: Performed By: #### L [id number] ####[facility] ([facility]ER)[address] [place] [address] LIPID PANELon 08-26-2023 CHOL/HDL 4.7 mg/dL Normal [facility] Comment on above: Performed By: #### L [id number] ####[facility] ([facility])[address] [place] [address] Cholesterol [Mass/Vol] 198 mg/dL Normal 120-200 [facility] Comment on above: Performed By: #### L [id number] ####[facility] ([facility])[address] [place] [address] Magnesium [Mass/Vol] 248 mg/dL High 40-[address] [facility] Comment on above: Result Comment: TRIG LYCERIDE REFERENCE RANGE:20 YEARS AND OLDER CARDIOVASCULAR RISKLESS THAN 150 mg/dL LOW [id number] TO 199 mg/dL BORDERLINE [id number] mg/dL AND GREATER HIGH RISK Performed By: #### L [id number] ####[facility] ([facility])[address] [place] [address] Magnesium [Mass/Vol] 106 mg/dL Normal 0-[address] [facility] Comment on above: Performed By: #### L [id number] ####[facility] ([facility])[address] [place] [address] Magnesium [Mass/Vol] 42 mg/dL Normal 23-[address] [facility] Comment on above: Performed By: #### L [id number] ####[facility] ([facility])[address] [place] [address] NON HDL CHOL. (LDL+VLDL) 156 Normal [facility] Comment on above: Performed By: #### L [id number] ####[facility] ([facility])[address] [place] [address] TOTAL VLDL-C 50 mg/dL High 0-40 [facility] Comment on above: Performed By: #### L [id number] ####[facility] ([facility])[address] [place] [address] Labon 08-26-2023 Lab Normal [facility] MAGNESIUMon 08-26-2023 Magnesium [Mass/Vol] 1.5 mg/dL Low 1.9-2.[address] [facility] Comment on above: Performed By: #### L [id number] ####[facility] ([facility])[address] [place] [address] PHOSPHORUSon 08-26-2023 Magnesium [Mass/Vol] 2.9 mg/dL Normal 2.5-5.[address] [facility] Comment on above: Performed By: #### L [id number] ####[facility] ([facility])[address] [place] [address] TACROLIMUS LEVELon Tacrolimus (Bld) [Mass/Vol] 9.2 ng/mL Normal 5.0-20.0 [facility] Comment on above: Result Comment: The [employer] Tacrolimus assay is a delayed one-step immunoassay for the quantitative determination of tacrolimus in human whole blood using the chemiluminescent microparticle immunoassay (CMIA) technology with flexible assay protocols, referred to as Chemiflex. Performed By: #### L [id number] ####[facility] ([facility])[address] [place] [address] URIC ACIDon 08-26-2023 Magnesium [Mass/Vol] 5.1 mg/dL Normal 2.3-6.[address] [facility] Comment on above: Performed By: #### L [id number] ####[facility] ([facility])[address] [place] [address] COMPREHENSIVE METABOLIC PANE Jonathan 08-06-2023 Albumin [Mass/Vol] 4.7 g/dL Normal 3.5-5.7 [facility] Comment on above: Performed By: #### L [id number] ####[facility] ([facility])[address] [place] [address] ALP [Catalytic activity/Vol] 85 U/L Normal 34-104 [facility] Comment on above: Performed By: #### L [id number] ####[facility] ([facility])[address] [place] [address] ALT [Catalytic activity/Vol] 25 U/L Normal 7-52 [facility] Comment on above: Performed By: #### L [id number] ####[facility] [place] [address] Anion gap [Moles/Vol] 14 mmol/L Normal 7-20 [facility] Comment on above: Performed By: #### L [id number] ####[facility] [place] [address] AST [Catalytic activity/Vol] 23 U/L Normal 13-39 [facility] Comment on above: Performed By: #### L [id number] ####[facility] ([facility])[address] [place] [address] Bilirubin [Mass/Vol] 0.5 mg/dL Normal 0.3-1.[address] [facility] Comment on above: Performed By: #### L [id number] ####[facility] ([facility])[address] [place] [address] Calcium [Mass/Vol] 9.5 mg/dL Normal 8.6-10.3 [facility] Comment on above: Performed By: #### L [id number] ####[facility] ([facility])[address] [place] [address] Chloride [Moles/Vol] 105 mmol/L Normal 98-[address] [facility] Comment on above: Performed By: #### L [id number] ####[facility] [place] [address] CO2 [Moles/Vol] 21 mmol/L Normal 21-31 [facility] Comment on above: Performed By: #### L [id number] ####[facility] ([facility])[address] [place] [address] Creatinine [Mass/Vol] 1.23 mg/dL High 0.60-1.20 [facility] Comment on above: Performed By: #### L [id number] ####[facility] [place] [address] GLOMERULAR FILTRATION RATE ML/MIN/1.73 SQ M.PREDICTED 54.5 mL/min/1.73m*2 Low >60.0 [facility] Comment on above: Result Comment: [facility]???s estimated glomerular filtration rate (eGFR) will [...] of individuals. Performed By: #### L [id number] ####[facility] ([facility])[address] [place] [address] Glucose [Mass/Vol] 133 mg/dL High 70-100 [facility] Comment on above: Performed By: #### L [id number] ####[facility] ([facility])[address] [place] [address] Potassium [Moles/Vol] 3.4 mmol/L Low 3.5-5.1 [facility] Comment on above: Performed By: #### L [id number] ####[facility] (BEAKER)[address] [place] [address] Protein [Mass/Vol] 7.4 g/dL Normal 6.0-8.3 [facility] Comment on above: Performed By: #### L [id number] ####[facility] ([facility]AKER)[address] [place] [address] Sodium [Moles/Vol] 137 mmol/L Normal 136-145 [facility] Comment on above: Performed By: #### L [id number] ####[facility] (BEAKER)[address] [place] [address] Urea nitrogen [Mass/Vol] 14 mg/dL Normal 7-25 [facility] Comment on above: Performed By: #### L [id number] ####[facility] (BEAKER)[address] [place] [address] UREA NITROGEN/CREATININE (MASS RATIO) IN SER/PLAS 11.4 Normal [facility] Comment on above: Performed By: #### L [id number] ####[facility] ([facility]ER)[address] [place] [address] Labon 08-06-2023 Lab [facility] Orders Onlyon 08-06-2023 Orders Only [facility] SINGLE ANTIGEN CLASS Ion AB SCREEN COMMENTS No Class I donor spe cific antibody identified [facility] Comment on above: Order Comment: To be used after initial monthly order expires Performed By: #### L [id number] ####[facility] TISSUE TYPING (HISTOTRAC)[address] [place] [address] [place] CLASS I TESTED DATE [facility] Comment on above: Order Comment: To be used after initial monthly order expires Performed By: #### L [id number] ####[facility] TISSUE TYPING (HISTOTRAC)[address] [place] [address] [facility] SINGLE ANTIGEN CLASS 1 TEST METHOD Class I Single Antigen Normal [facility] Comment on above: Order Comment: To be used after initial monthly order expires Performed By: #### L [id number] ####[facility] TISSUE TYPING (HISTOTRAC)[address] [place] [address] [facility] SINGLE ANTIGEN CLASS IIon AB SCREEN COMMENTS No Class II donor specific antibody identified [facility] Comment on above: Order Comment: To be used after initial monthly order expires Performed By: #### L [id number] ####[facility] TISSUE TYPING (HISTOTRAC)[address] [place] [address] [place] CLASS II TESTED DATE [facility] Comment on above: Order Comment: To be used after initial monthly order expires Performed By: #### L [id number] ####[facility] TISSUE TYPING (HISTOTRAC)[address] [place] [address] [facility] SIGNED BY Signed by Sree escamilla CHT(ACHI) MT(ASCP), Kerrick Kleaner Operator [employer]ology [facility] Comment on above: Order Comment: To be used after initial monthly order expires Performed By: #### L [id number] ####[facility] TISSUE TYPING (HISTOTRAC)[address] [place], [place] [address] Result Comment: Clas s I Antigen Microbeads Performed By: #### L [id number] ####[facility] TISSUE TYPING (HISTOTRAC)[address] [place] [address] [facility] SINGLE ANTIGEN CLASS 2 TEST METHOD Class II Single Antigen Normal [facility] Comment on above: Order Comment: To be used after initial monthly order expires Result Comment: Clas s II Antigen Microbeads Performed By: #### L [id number] ####[facility] TISSUE TYPING (HISTOTRAC)[address] [place] [address] [facility] MM screening mammo BI w/CADo n 07-30-2023 MM screening mammo BI w/CAD [facility] [place] [address] Mammography Report Signed Patient: Mandeep Puri MR#: [id number] 15 : 1975 Acct:[id number] Age/Sex: 47 / F ADM Date: 07/30/23 [facility] Room: [facility]: [facility] Attending Dr: Referral Self Copies to: Ming Espinoza, SELF,REFERRAL Blaek Champion DO Ordering Provider: SELF,REFERRAL Date of [...] Messina Jr., D.O.07/30/2023 4:05 PM Dictation Location: [facility] Transcribed By: [facility] 07/30/231604 Dictated By: Evan Messina Jr, DO 07/30/231603 Signed By: 07/30/23 160 Normal [facility] CBC WITH AUTO DIFFERENTIALon 07-24-2023 Basophils (Bld) [#/Vol] 0.06 10*3/uL Normal 0.00-0.20 [facility] Comment on above: Performed By: #### L [id number] ####[facility] (BEAKER)[address] [place] [address] Basophils/100 WBC (Bld) 0.7 % Normal 0.0-1.0 [facility] Comment on above: Performed By: #### L [id number] ####[facility] (BEAKER)[address] [place] [address] Eosinophils (Bld) [#/Vol] 0.28 10*3/uL Normal 0.00-0.50 [facility] Comment on above: Performed By: #### L [id number] ####[facility] (BEAKER)[address] [place] [address] Eosinophils/100 WBC (Bld) 3.3 % Normal 0.0-6.0 [facility] Comment on above: Performed By: #### L [id number] ####[facility] (BEAKER)[address] [place] [address] Erythrocyte distribution width (RBC) [Ratio] 14.6 % Normal 11.5-15.0 [facility] Comment on above: Performed By: #### L [id number] ####[facility] (BEAKER)[address] [place] [address] ERYTHROCYTE MEAN CORPUSCULAR HEMOGLOBIN CONCENTRATION (G/DL) BY AUTOMATED 33.2 g/dL Normal 32.0-35.0 [facility] Comment on above: Performed By: #### L [id number] ####[facility] [place] [address] Hematocrit (Bld) [Volume fraction] 39.7 % Normal 36.0-48.0 [facility] Comment on above: Performed By: #### L [id number] ####[facility] [place] [address] Hemoglobin (Bld) [Mass/Vol] 13.2 g/dL Normal 12.0-15.0 [facility] Comment on above: Performed By: #### L [id number] ####[facility] ([facility])[address] [place] [address] Immature granulocytes (Bld) [#/Vol] 0.09 10*3/uL Normal 0.00-0.20 [facility] Comment on above: Performed By: #### L [id number] ####[facility] [place] [address] Immature granulocytes/100 WBC (Bld) 1.1 % High 0.0-1.0 [facility] Comment on above: Performed By: #### L [id number] ####[facility] (BEAKER)[address] [place] [address] Lymphocytes (Bld) [#/Vol] 1.41 10*3/uL Normal 1.20-4.00 [facility] Comment on above: Performed By: #### L [id number] ####[facility] ([facility] [place] [address] Lymphocytes/100 WBC (Bld) 16.5 % Low 20.0-45.0 [facility] Comment on above: Performed By: #### L [id number] ####[facility] (BEAKER)[address] [place] [address] MCH (RBC) [Entitic mass] 28.9 pg Normal 27.0-33.0 [facility] Comment on above: Performed By: #### L [id number] ####[facility] (BEAKER)[address] [place] [address] MCV (RBC) [Entitic vol] 86.9 fL Normal 82.0-98.0 [facility] Comment on above: Performed By: #### L [id number] ####[facility] (BEAKER)[address] [place] [address] Monocytes (Bld) [#/Vol] 0.44 10*3/uL Normal 0.10-1.00 [facility] Comment on above: Performed By: #### L [id number] ####[facility] ([facility])[address] [place] [address] Monocytes/100 WBC (Bld) 5.1 % Normal 5.0-12.0 [facility] Comment on above: Performed By: #### L [id number] ####[facility] ([facility])[address] [place] [address] Neutrophils (Bld) [#/Vol] 6.28 10*3/uL Normal 1.60-7.60 [facility] Comment on above: Performed By: #### L [id number] ####[facility] ([facility])[address] [place] [address] Neutrophils/100 WBC (Bld) 73.3 % High 40.0-72.0 [facility] Comment on above: Performed By: #### L [id number] ####[facility] [place] [address] NRBC (PER 100 WBCS) BY AUTOMATED COUNT 0.0 % Normal 0 [facility] Comment on above: Performed By: #### L [id number] ####[facility] [place] [address] PLATELETS (10*3/UL) IN BLOOD AUTOMATED COUNT 371 10*3/uL Normal 150-400 [facility] Comment on above: Performed By: #### L [id number] ####[facility] (BEAKER)[address] [place] [address] RBC (Bld) [#/Vol] 4.57 10*6/uL Normal 3.80-5.00 [facility] Comment on above: Performed By: #### L [id number] ####[facility] (BEAKER)[address] [place] [address] WBC (Bld) [#/Vol] 8.56 10*3/uL Normal 4.00-10.60 [facility] Comment on above: Performed By: #### L [id number] ####[facility] ([facility])[address] [place] [address] Labon 07-24-2023 Lab Normal [facility] Orders Onlyon 07-24-2023 Orders Only Normal [facility] BASIC METABOLIC PANELon 07-06 Anion gap [Moles/Vol] 16 mmol/L Normal 7-20 [facility] Comment on above: Performed By: #### L [id number] ####[facility] [place] [address] Calcium [Mass/Vol] 9.7 mg/dL Normal 8.6-10.3 [facility] Comment on above: Performed By: #### L [id number] ####[facility] (BEAKER)[address] [place] [address] Chloride [Moles/Vol] 104 mmol/L Normal 98-[address] [facility] Comment on above: Performed By: #### L [id number] ####[facility] (BEAKER)[address] [place] [address] CO2 [Moles/Vol] 23 mmol/L Normal 21-31 [facility] Comment on above: Performed By: #### L [id number] ####[facility] (BEAKER)[address] [place] [address] Creatinine [Mass/Vol] 1.18 mg/dL Normal 0.60-1.20 [facility] Comment on above: Performed By: #### L [id number] ####[facility] ([facility])[address] [place] [address] GLOMERULAR FILTRATION RATE ML/MIN/1.73 SQ M.PREDICTED 57.3 mL/min/1.73m*2 Low >60.0 [facility] Comment on above: Result Comment: [facility]???s estimated glomerular filtration rate (eGFR) will [...] of individuals. Performed By: #### L [id number] ####[facility] ([facility])[address] [place] [address] Glucose [Mass/Vol] 134 mg/dL High 70-100 [facility] Comment on above: Performed By: #### L [id number] ####[facility] ([facility])[address] [place] [address] Potassium [Moles/Vol] 3.5 mmol/L Normal 3.5-5.1 [facility] Comment on above: Performed By: #### L [id number] ####[facility] ([facility])[address] [place] [address] Sodium [Moles/Vol] 139 mmol/L Normal 136-145 [facility] Comment on above: Performed By: #### L [id number] ####[facility] [place] [address] Urea nitrogen [Mass/Vol] 16 mg/dL Normal 7-25 [facility] Comment on above: Performed By: #### L [id number] ####[facility] ([facility] [place] [address] UREA NITROGEN/CREATININE (MASS RATIO) IN SER/PLAS 13.6 Normal [facility] Comment on above: Performed By: #### L [id number] ####[facility] (BEAKER)[address] [place] [address] CBC WITH AUTO DIFFERENTIALon 07-17-2023 Basophils (Bld) [#/Vol] 0.05 10*3/uL Normal 0.00-0.20 [facility] Comment on above: Performed By: #### L [id number] ####[facility] (BEAKER)[address] [place] [address] Basophils/100 WBC (Bld) 0.6 % Normal 0.0-1.0 [facility] Comment on above: Performed By: #### L [id number] ####[facility] [place] [address] Eosinophils (Bld) [#/Vol] 0.21 10*3/uL Normal 0.00-0.50 [facility] Comment on above: Performed By: #### L [id number] ####[facility] (BEAKER)[address] [place] [address] Eosinophils/100 WBC (Bld) 2.7 % Normal 0.0-6.0 [facility] Comment on above: Performed By: #### L [id number] ####[facility] (BEAKER)[address] [place] [address] Erythrocyte distribution width (RBC) [Ratio] 14.3 % Normal 11.5-15.0 [facility] Comment on above: Performed By: #### L [id number] ####[facility] (BEAKER)[address] [place] [address] ERYTHROCYTE MEAN CORPUSCULAR HEMOGLOBIN CONCENTRATION (G/DL) BY AUTOMATED 32.6 g/dL Normal 32.0-35.0 [facility] Comment on above: Performed By: #### L [id number] ####[facility] (BEAKER)[address] [place] [address] Hematocrit (Bld) [Volume fraction] 38.3 % Normal 36.0-48.0 [facility] Comment on above: Performed By: #### L [id number] ####[facility] (BEAKER)[address] [place] [address] Hemoglobin (Bld) [Mass/Vol] 12.5 g/dL Normal 12.0-15.0 [facility] Comment on above: Performed By: #### L [id number] ####[facility] (BEAKER)[address] [place] [address] Immature granulocytes (Bld) [#/Vol] 0.10 10*3/uL Normal 0.00-0.20 [facility] Comment on above: Performed By: #### L [id number] ####[facility] ([facility])[address] [place] [address] Immature granulocytes/100 WBC (Bld) 1.3 % High 0.0-1.0 [facility] Comment on above: Performed By: #### L [id number] ####[facility] (BEAKER)[address] [place] [address] Lymphocytes (Bld) [#/Vol] 1.37 10*3/uL Normal 1.20-4.00 [facility] Comment on above: Performed By: #### L [id number] ####[facility] (BEAKER)[address] [place] [address] Lymphocytes/100 WBC (Bld) 17.4 % Low 20.0-45.0 [facility] Comment on above: Performed By: #### L [id number] ####[facility] (BEAKER)[address] [place] [address] MCH (RBC) [Entitic mass] 28.9 pg Normal 27.0-33.0 [facility] Comment on above: Performed By: #### L [id number] ####[facility] (BEAKER)[address] [place] [address] MCV (RBC) [Entitic vol] 88.5 fL Normal 82.0-98.0 [facility] Comment on above: Performed By: #### L [id number] ####[facility] (BEAKER)[address] [place] [address] Monocytes (Bld) [#/Vol] 0.44 10*3/uL Normal 0.10-1.00 [facility] Comment on above: Performed By: #### L [id number] ####[facility] (BEAKER)[address] [place] [address] Monocytes/100 WBC (Bld) 5.6 % Normal 5.0-12.0 [facility] Comment on above: Performed By: #### L [id number] ####[facility] (BEAKER)[address] [place] [address] Neutrophils (Bld) [#/Vol] 5.69 10*3/uL Normal 1.60-7.60 [facility] Comment on above: Performed By: #### L [id number] ####[facility] (BEAKER)[address] [place] [address] Neutrophils/100 WBC (Bld) 72.4 % High 40.0-72.0 [facility] Comment on above: Performed By: #### L [id number] ####[facility] (BEAKER)[address] [place] [address] NRBC (PER 100 WBCS) BY AUTOMATED COUNT 0.0 % Normal 0 [facility] Comment on above: Performed By: #### L [id number] ####[facility] (BEAKER)[address] [place] [address] PLATELETS (10*3/UL) IN BLOOD AUTOMATED COUNT 349 10*3/uL Normal 150-400 [facility] Comment on above: Performed By: #### L [id number] ####[facility] (BEAKER)[address] [place] [address] RBC (Bld) [#/Vol] 4.33 10*6/uL Normal 3.80-5.00 [facility] Comment on above: Performed By: #### L [id number] ####[facility] (BEAKER)[address] [place] [address] WBC (Bld) [#/Vol] 7.86 10*3/uL Normal 4.00-10.60 [facility] Comment on above: Performed By: #### L [id number] ####[facility] ([facility])[address] [place] [address] HEPATIC FUNCTION PANELon Albumin [Mass/Vol] 4.4 g/dL Normal 3.5-5.7 [facility] Comment on above: Performed By: #### L [id number] ####[facility] ([facility])[address] [place] [address] ALP [Catalytic activity/Vol] 83 U/L Normal 34-104 [facility] Comment on above: Performed By: #### L [id number] ####[facility] ([facility])[address] [place] [address] ALT [Catalytic activity/Vol] 25 U/L Normal 7-52 [facility] Comment on above: Performed By: #### L [id number] ####[facility] ([facility])[address] [place] [address] AST [Catalytic activity/Vol] 21 U/L Normal 13-39 [facility] Comment on above: Performed By: #### L [id number] ####[facility] ([facility])[address] [place] [address] Bilirubin [Mass/Vol] 0.4 mg/dL Normal 0.3-1.[address] [facility] Comment on above: Performed By: #### L [id number] ####[facility] ([facility])[address] [place] [address] Magnesium [Mass/Vol] 0.1 mg/dL Normal 0-0.[address] [facility] Comment on above: Performed By: #### L [id number] ####[facility] ([facility])[address] [place] [address] Protein [Mass/Vol] 7.3 g/dL Normal 6.0-8.3 [facility] Comment on above: Performed By: #### L [id number] ####[facility] ([facility])[address] [place] [address] Labon 07-17-2023 Lab Normal [facility] MAGNESIUMon 07-17-2023 Magnesium [Mass/Vol] 1.6 mg/dL Low 1.9-2.[address] [facility] Comment on above: Performed By: #### L [id number] ####[facility] ([facility])[address] [place] [address] Orders Onlyon 07-17-2023 Orders Only Normal [facility] PHOSPHORUSon 07-17-2023 Magnesium [Mass/Vol] 3.3 mg/dL Normal 2.5-5.[address] [facility] Comment on above: Performed By: #### L [id number] ####[facility] ([facility])[address] [place] [address] TACROLIMUS LEVELon Tacrolimus (Bld) [Mass/Vol] 6.5 ng/mL Normal 5.0-20.0 [facility] Comment on above: Result Comment: The [employer] Tacrolimus assay is a delayed one-step immunoassay for the quantitative determination of tacrolimus in human whole blood using the chemiluminescent microparticle immunoassay (CMIA) technology with flexible assay protocols, referred to as Chemiflex. Performed By: #### L [id number] ####[facility] ([facility])[address] [place] [address] URIC ACIDon 07-17-2023 Magnesium [Mass/Vol] 4.9 mg/dL Normal 2.3-6.[address] [facility] Comment on above: Performed By: #### L [id number] ####[facility] ([facility])[address] [place] [address] 29on 07-16-2023 29 Addended by: LU STEPHENS on: 07/16/2023 03:23 PM Modules accepted: Orders Normal [facility] Documentationon 07-16-2023 Documentation Normal [facility] BASIC METABOLIC PANELon 09-2 Anion gap [Moles/Vol] 13 mmol/L Normal 7-20 [facility] Comment on above: Performed By: #### L [id number] ####[facility] ([facility])[address] [place] [address] Calcium [Mass/Vol] 9.6 mg/dL Normal 8.6-10.3 [facility] Comment on above: Performed By: #### L [id number] ####[facility] ([facility])[address] [place] [address] Chloride [Moles/Vol] 102 mmol/L Normal 98-[address] [facility] Comment on above: Performed By: #### L [id number] ####[facility] ([facility])[address] [place] [address] CO2 [Moles/Vol] 25 mmol/L Normal 21-31 [facility] Comment on above: Performed By: #### L [id number] ####[facility] ([facility])[address] [place] [address] Creatinine [Mass/Vol] 1.26 mg/dL High 0.60-1.20 [facility] Comment on above: Performed By: #### L [id number] ####[facility] ([facility])[address] [place] [address] GLOMERULAR FILTRATION RATE ML/MIN/1.73 SQ M.PREDICTED 53.0 mL/min/1.73m*2 Low >60.0 [facility] Comment on above: Result Comment: [facility]???s estimated glomerular filtration rate (eGFR) will [...] of individuals. Performed By: #### L [id number] ####[facility] ([facility])[address] [place] [address] Glucose [Mass/Vol] 128 mg/dL High 70-100 [facility] Comment on above: Performed By: #### L [id number] ####[facility] ([facility])[address] [place] [address] Potassium [Moles/Vol] 3.1 mmol/L Low 3.5-5.1 [facility] Comment on above: Performed By: #### L [id number] ####[facility] ([facility])[address] [place] [address] Sodium [Moles/Vol] 137 mmol/L Normal 136-145 [facility] Comment on above: Performed By: #### L [id number] ####[facility] ([facility])[address] [place] [address] Urea nitrogen [Mass/Vol] 14 mg/dL Normal 7-25 [facility] Comment on above: Performed By: #### L [id number] ####[facility] ([facility])[address] [place] [address] UREA NITROGEN/CREATININE (MASS RATIO) IN SER/PLAS 11.1 Normal [facility] Comment on above: Performed By: #### L [id number] ####[facility] ([facility])[address] [place] [address] CBC WITH AUTO DIFFERENTIALon 06-28-2023 Basophils (Bld) [#/Vol] 0.06 10*3/uL Normal 0.00-0.20 [facility] Comment on above: Performed By: #### L [id number] ####[facility] ([facility])[address] [place] [address] Basophils/100 WBC (Bld) 0.6 % Normal 0.0-1.0 [facility] Comment on above: Performed By: #### L [id number] ####[facility] ([facility])[address] [place] [address] Eosinophils (Bld) [#/Vol] 0.18 10*3/uL Normal 0.00-0.50 [facility] Comment on above: Performed By: #### L [id number] ####[facility] [place] [address] Eosinophils/100 WBC (Bld) 1.8 % Normal 0.0-6.0 [facility] Comment on above: Performed By: #### L [id number] ####[facility] ([facility])[address] [place] [address] Erythrocyte distribution width (RBC) [Ratio] 14.5 % Normal 11.5-15.0 [facility] Comment on above: Performed By: #### L [id number] ####[facility] ([facility])[address] [place] [address] ERYTHROCYTE MEAN CORPUSCULAR HEMOGLOBIN CONCENTRATION (G/DL) BY AUTOMATED 33.1 g/dL Normal 32.0-35.0 [facility] Comment on above: Performed By: #### L [id number] ####[facility] [place] [address] Hematocrit (Bld) [Volume fraction] 40.5 % Normal 36.0-48.0 [facility] Comment on above: Performed By: #### L [id number] ####[facility] (BEAKER)[address] [place] [address] Hemoglobin (Bld) [Mass/Vol] 13.4 g/dL Normal 12.0-15.0 [facility] Comment on above: Performed By: #### L [id number] ####[facility] [place] [address] Immature granulocytes (Bld) [#/Vol] 0.13 10*3/uL Normal 0.00-0.20 [facility] Comment on above: Performed By: #### L [id number] ####[facility] (BE[facility])[address] [place] [address] Immature granulocytes/100 WBC (Bld) 1.3 % High 0.0-1.0 [facility] Comment on above: Performed By: #### L [id number] ####[facility] ([facility])[address] [place] [address] Lymphocytes (Bld) [#/Vol] 1.30 10*3/uL Normal 1.20-4.00 [facility] Comment on above: Performed By: #### L [id number] ####[facility] [place] [address] Lymphocytes/100 WBC (Bld) 13.3 % Low 20.0-45.0 [facility] Comment on above: Performed By: #### L [id number] ####[facility] ([facility])[address] [place] [address] MCH (RBC) [Entitic mass] 29.2 pg Normal 27.0-33.0 [facility] Comment on above: Performed By: #### L [id number] ####[facility] (BEAKER)[address] [place] [address] MCV (RBC) [Entitic vol] 88.2 fL Normal 82.0-98.0 [facility] Comment on above: Performed By: #### L [id number] ####[facility] ([facility])[address] [place] [address] Monocytes (Bld) [#/Vol] 0.51 10*3/uL Normal 0.10-1.00 [facility] Comment on above: Performed By: #### L [id number] ####[facility] (BEAKER)[address] [place] [address] Monocytes/100 WBC (Bld) 5.2 % Normal 5.0-12.0 [facility] Comment on above: Performed By: #### L [id number] ####[facility] (BEAKER)[address] [place] [address] Neutrophils (Bld) [#/Vol] 7.62 10*3/uL High 1.60-7.60 [facility] Comment on above: Performed By: #### L [id number] ####[facility] [place] [address] Neutrophils/100 WBC (Bld) 77.8 % High 40.0-72.0 [facility] Comment on above: Performed By: #### L [id number] ####[facility] [facility] ([facility])[address] [place] [address] NRBC (PER 100 WBCS) BY AUTOMATED COUNT 0.0 % Normal 0 [facility] Comment on above: Performed By: #### L [id number] ####[facility] ([facility])[address] [place] [address] PLATELETS (10*3/UL) IN BLOOD AUTOMATED COUNT 334 10*3/uL Normal 150-400 [facility] Comment on above: Performed By: #### L [id number] ####[facility] ([facility])[address] [place] [address] RBC (Bld) [#/Vol] 4.59 10*6/uL Normal 3.80-5.00 [facility] Comment on above: Performed By: #### L [id number] ####[facility] ([facility])[address] [place] [address] WBC (Bld) [#/Vol] 9.80 10*3/uL Normal 4.00-10.60 [facility] Comment on above: Performed By: #### L [id number] ####[facility] ([facility])[address] [place] [address] HEPATIC FUNCTION PANELon Albumin [Mass/Vol] 4.7 g/dL Normal 3.5-5.7 [facility] Comment on above: Performed By: #### L [id number] ####[facility] ([facility])[address] [place] [address] ALP [Catalytic activity/Vol] 91 U/L Normal 34-104 [facility] Comment on above: Performed By: #### L [id number] ####[facility] ([facility])[address] [place] [address] ALT [Catalytic activity/Vol] 29 U/L Normal 7-52 [facility] Comment on above: Performed By: #### L [id number] ####[facility] ([facility])[address] [place] [address] AST [Catalytic activity/Vol] 25 U/L Normal 13-39 [facility] Comment on above: Performed By: #### L [id number] ####[facility] ([facility])[address] [place] [address] Bilirubin [Mass/Vol] 0.5 mg/dL Normal 0.3-1.[address] [facility] Comment on above: Performed By: #### L [id number] ####[facility] ([facility])[address] [place] [address] Magnesium [Mass/Vol] 0.1 mg/dL Normal 0-0.[address] [facility] Comment on above: Performed By: #### L [id number] ####[facility] ([facility])[address] [place] [address] Protein [Mass/Vol] 7.9 g/dL Normal 6.0-8.3 [facility] Comment on above: Performed By: #### L [id number] ####[facility] ([facility])[address] [place] [address] LIPID PANELon 06-28-2023 CHOL/HDL 4.1 mg/dL Normal [facility] Comment on above: Performed By: #### L [id number] ####[facility] ([facility])[address] [place] [address] Cholesterol [Mass/Vol] 192 mg/dL Normal 120-200 [facility] Comment on above: Performed By: #### L [id number] ####[facility] ([facility])[address] [place] [address] Magnesium [Mass/Vol] 228 mg/dL High 40-[address] [facility] Comment on above: Result Comment: TRIG LYCERIDE REFERENCE RANGE:20 YEARS AND OLDER CARDIOVASCULAR RISKLESS THAN 150 mg/dL LOW [id number] TO 199 mg/dL BORDERLINE GEXA305 mg/dL AND GREATER HIGH RISK Performed By: #### L [id number] ####[facility] ([facility])[address] [place] [address] Magnesium [Mass/Vol] 99 mg/dL Normal 0-[address] [facility] Comment on above: Performed By: #### L [id number] ####[facility] ([facility])[address] [place] [address] Magnesium [Mass/Vol] 47 mg/dL Normal 23-[address] [facility] Comment on above: Performed By: #### L [id number] ####[facility] ([facility])[address] [place] [address] NON HDL CHOL. (LDL+VLDL) 145 Normal [facility] Comment on above: Performed By: #### L [id number] ####[facility] ([facility])[address] [place] [address] TOTAL VLDL-C 46 mg/dL High 0-40 [facility] Comment on above: Performed By: #### L [id number] ####[facility] ([facility])[address] [place] [address] Labon 06-28-2023 Lab Normal [facility] MAGNESIUMon 06-28-2023 Magnesium [Mass/Vol] 1.4 mg/dL Low 1.9-2.[address] [facility] Comment on above: Performed By: #### L [id number] ####[facility] ([facility])[address] [place] [address] PHOSPHORUSon 06-28-2023 Magnesium [Mass/Vol] 2.7 mg/dL Normal 2.5-5.[address] [facility] Comment on above: Performed By: #### L [id number] ####[facility] ([facility])[address] [place] [address] TACROLIMUS LEVELon 3 Tacrolimus (Bld) [Mass/Vol] 6.9 ng/mL Normal 5.0-20.0 [facility] Comment on above: Result Comment: The [employer] Tacrolimus assay is a delayed one-step immunoassay for the quantitative determination of tacrolimus in human whole blood using the chemiluminescent microparticle immunoassay (CMIA) technology with flexible assay protocols, referred to as Chemiflex. Performed By: #### L [id number] ####[facility] [place] [address] URIC ACIDon 06-28-2023 Magnesium [Mass/Vol] 5.0 mg/dL Normal 2.3-6.[address] [facility] Comment on above: Performed By: #### L [id number] ####[facility] ([facility])[address] [place] [address] 36on 06-23-2023 36 I reviewed the case with the resident. I agree with the assessment and plan as documented in the resident's note. Ming Kidd, PharmD, BCTXP Normal [facility] Telephoneon 06-17-2023 Telephone Normal [facility] BASIC METABOLIC PANELon 05-07 Anion gap [Moles/Vol] 13 mmol/L Normal 7-20 [facility] Comment on above: Performed By: #### L [id number] ####[facility] ([facility])[address] [place] [address] Calcium [Mass/Vol] 9.5 mg/dL Normal 8.6-10.3 [facility] Comment on above: Performed By: #### L [id number] ####[facility] ([facility])[address] [place] [address] Chloride [Moles/Vol] 101 mmol/L Normal 98-[address] [facility] Comment on above: Performed By: #### L [id number] ####[facility] ([facility])[address] [place] [address] CO2 [Moles/Vol] 27 mmol/L Normal 21-31 [facility] Comment on above: Performed By: #### L [id number] ####[facility] [place] [address] Creatinine [Mass/Vol] 1.28 mg/dL High 0.60-1.20 [facility] Comment on above: Performed By: #### L [id number] ####[facility] ([facility])[address] [place] [address] GLOMERULAR FILTRATION RATE ML/MIN/1.73 SQ M.PREDICTED 52.0 mL/min/1.73m*2 Low >60.0 [facility] Comment on above: Result Comment: [facility]???s estimated glomerular filtration rate (eGFR) will [...] of individuals. Performed By: #### L [id number] ####[facility] ([facility])[address] [place] [address] Glucose [Mass/Vol] 163 mg/dL High 70-100 [facility] Comment on above: Performed By: #### L [id number] ####[facility] ([facility])[address] [place] [address] Potassium [Moles/Vol] 3.1 mmol/L Low 3.5-5.1 [facility] Comment on above: Performed By: #### L [id number] ####[facility] ([facility])[address] [place] [address] Sodium [Moles/Vol] 138 mmol/L Normal 136-145 [facility] Comment on above: Performed By: #### L [id number] ####[facility] ([facility])[address] [place] [address] Urea nitrogen [Mass/Vol] 18 mg/dL Normal 7-25 [facility] Comment on above: Performed By: #### L [id number] ####[facility] [place] [address] UREA NITROGEN/CREATININE (MASS RATIO) IN SER/PLAS 14.1 Normal [facility] Comment on above: Performed By: #### L [id number] ####[facility] ([facility])[address] [place] [address] CBC WITH AUTO DIFFERENTIALon 05-29-2023 Basophils (Bld) [#/Vol] 0.06 10*3/uL Normal 0.00-0.20 [facility] Comment on above: Performed By: #### L [id number] ####[facility] ([facility])[address] [place] [address] Basophils/100 WBC (Bld) 0.6 % Normal 0.0-1.0 [facility] Comment on above: Performed By: #### L [id number] ####[facility] ([facility])[address] [place] [address] Eosinophils (Bld) [#/Vol] 0.18 10*3/uL Normal 0.00-0.50 [facility] Comment on above: Performed By: #### L [id number] ####[facility] ([facility])[address] [place] [address] Eosinophils/100 WBC (Bld) 1.9 % Normal 0.0-6.0 [facility] Comment on above: Performed By: #### L [id number] ####[facility] ([facility])[address] [place] [address] Erythrocyte distribution width (RBC) [Ratio] 14.3 % Normal 11.5-15.0 [facility] Comment on above: Performed By: #### L [id number] ####[facility] ([facility])[address] [place] [address] ERYTHROCYTE MEAN CORPUSCULAR HEMOGLOBIN CONCENTRATION (G/DL) BY AUTOMATED 32.4 g/dL Normal 32.0-35.0 [facility] Comment on above: Performed By: #### L [id number] ####[facility] ([facility])[address] [place] [address] Hematocrit (Bld) [Volume fraction] 37.4 % Normal 36.0-48.0 [facility] Comment on above: Performed By: #### L [id number] ####[facility] ([facility])[address] [place] [address] Hemoglobin (Bld) [Mass/Vol] 12.1 g/dL Normal 12.0-15.0 [facility] Comment on above: Performed By: #### L [id number] ####[facility] ([facility])[address] [place] [address] Immature granulocytes (Bld) [#/Vol] 0.17 10*3/uL Normal 0.00-0.20 [facility] Comment on above: Performed By: #### L [id number] ####[facility] ([facility])[address] [place] [address] Immature granulocytes/100 WBC (Bld) 1.8 % High 0.0-1.0 [facility] Comment on above: Performed By: #### L [id number] ####[facility] ([facility])[address] [place] [address] Lymphocytes (Bld) [#/Vol] 1.30 10*3/uL Normal 1.20-4.00 [facility] Comment on above: Performed By: #### L [id number] ####[facility] ([facility])[address] [place] [address] Lymphocytes/100 WBC (Bld) 13.4 % Low 20.0-45.0 [facility] Comment on above: Performed By: #### L [id number] ####[facility] ([facility])[address] [place] [address] MCH (RBC) [Entitic mass] 28.8 pg Normal 27.0-33.0 [facility] Comment on above: Performed By: #### L [id number] ####[facility] ([facility])[address] [place] [address] MCV (RBC) [Entitic vol] 89.0 fL Normal 82.0-98.0 [facility] Comment on above: Performed By: #### L [id number] ####[facility] [place] [address] Monocytes (Bld) [#/Vol] 0.56 10*3/uL Normal 0.10-1.00 [facility] Comment on above: Performed By: #### L [id number] ####[facility] [place] [address] Monocytes/100 WBC (Bld) 5.8 % Normal 5.0-12.0 [facility] Comment on above: Performed By: #### L [id number] ####[facility] ([facility])[address] [place] [address] Neutrophils (Bld) [#/Vol] 7.43 10*3/uL Normal 1.60-7.60 [facility] Comment on above: Performed By: #### L [id number] ####[facility] [place] [address] Neutrophils/100 WBC (Bld) 76.5 % High 40.0-72.0 [facility] Comment on above: Performed By: #### L [id number] ####[facility] [place] [address] NRBC (PER 100 WBCS) BY AUTOMATED COUNT 0.0 % Normal 0 [facility] Comment on above: Performed By: #### L [id number] ####[facility] [place] [address] PLATELETS (10*3/UL) IN BLOOD AUTOMATED COUNT 331 10*3/uL Normal 150-400 [facility] Comment on above: Performed By: #### L [id number] ####[facility] ([facility])[address] [place] [address] RBC (Bld) [#/Vol] 4.20 10*6/uL Normal 3.80-5.00 [facility] Comment on above: Performed By: #### L [id number] ####[facility] ([facility])[address] [place] [address] WBC (Bld) [#/Vol] 9.70 10*3/uL Normal 4.00-10.60 [facility] Comment on above: Performed By: #### L [id number] ####[facility] ([facility])[address] [place] [address] HEPATIC FUNCTION PANELon Albumin [Mass/Vol] 4.5 g/dL Normal 3.5-5.7 [facility] Comment on above: Performed By: #### L [id number] ####[facility] ([facility])[address] [place] [address] ALP [Catalytic activity/Vol] 87 U/L Normal 34-104 [facility] Comment on above: Performed By: #### L [id number] ####[facility] ([facility])[address] [place] [address] ALT [Catalytic activity/Vol] 29 U/L Normal 7-52 [facility] Comment on above: Performed By: #### L [id number] ####[facility] ([facility])[address] [place] [address] AST [Catalytic activity/Vol] 24 U/L Normal 13-39 [facility] Comment on above: Performed By: #### L [id number] ####[facility] ([facility])[address] [place] [address] Bilirubin [Mass/Vol] 0.4 mg/dL Normal 0.3-1.[address] [facility] Comment on above: Performed By: #### L [id number] ####[facility] ([facility])[address] [place] [address] Magnesium [Mass/Vol] 0.0 mg/dL Normal 0-0.[address] [facility] Comment on above: Performed By: #### L [id number] ####[facility] ([facility])[address] [place] [address] Protein [Mass/Vol] 7.4 g/dL Normal 6.0-8.3 [facility] Comment on above: Performed By: #### L [id number] ####[facility] ([facility])[address] [place] [address] Labon 05-29-2023 Lab Normal [facility] MAGNESIUMon 05-29-2023 Magnesium [Mass/Vol] 1.7 mg/dL Low 1.9-2.[address] [facility] Comment on above: Performed By: #### L [id number] ####[facility] ([facility])[address] [place] [address] PHOSPHORUSon 05-29-2023 Magnesium [Mass/Vol] 2.8 mg/dL Normal 2.5-5.[address] [facility] Comment on above: Performed By: #### L [id number] ####[facility] ([facility])[address] [place] [address] TACROLIMUS LEVELon Tacrolimus (Bld) [Mass/Vol] 5.6 ng/mL Normal 5.0-20.0 [facility] Comment on above: Result Comment: The [employer] Tacrolimus assay is a delayed one-step immunoassay for the quantitative determination of tacrolimus in human whole blood using the chemiluminescent microparticle immunoassay (CMIA) technology with flexible assay protocols, referred to as Chemiflex. Performed By: #### L [id number] ####[facility] ([facility])[address] [place] [address] URIC ACIDon 05-29-2023 Magnesium [Mass/Vol] 5.0 mg/dL Normal 2.3-6.[address] [facility] Comment on above: Performed By: #### L [id number] ####[facility] ([facility])[address] [place] [address] BASIC METABOLIC PANELon 04-06 Anion gap [Moles/Vol] 13 mmol/L Normal 7-20 [facility] Comment on above: Performed By: #### L [id number] ####[facility] ([facility])[address] [place] [address] Calcium [Mass/Vol] 9.5 mg/dL Normal 8.6-10.3 [facility] Comment on above: Performed By: #### L [id number] ####[facility] [place] [address] Chloride [Moles/Vol] 104 mmol/L Normal 98-[address] [facility] Comment on above: Performed By: #### L [id number] ####[facility] ([facility])[address] [place] [address] CO2 [Moles/Vol] 22 mmol/L Normal 21-31 [facility] Comment on above: Performed By: #### L [id number] ####[facility] ([facility])[address] [place] [address] Creatinine [Mass/Vol] 1.25 mg/dL High 0.60-1.20 [facility] Comment on above: Performed By: #### L [id number] ####[facility] ([facility])[address] [place] [address] GLOMERULAR FILTRATION RATE ML/MIN/1.73 SQ M.PREDICTED 53.5 mL/min/1.73m*2 Low >60.0 [facility] Comment on above: Result Comment: [facility]???s estimated glomerular filtration rate (eGFR) will [...] of individuals. Performed By: #### L [id number] ####[facility] ([facility])[address] [place] [address] Glucose [Mass/Vol] 189 mg/dL High 70-100 [facility] Comment on above: Performed By: #### L [id number] ####[facility] ([facility])[address] [place] [address] Potassium [Moles/Vol] 4.0 mmol/L Normal 3.5-5.1 [facility] Comment on above: Performed By: #### L [id number] ####[facility] ([facility])[address] [place] [address] Sodium [Moles/Vol] 135 mmol/L Low 136-145 [facility] Comment on above: Performed By: #### L [id number] ####[facility] ([facility])[address] [place] [address] Urea nitrogen [Mass/Vol] 19 mg/dL Normal 7-25 [facility] Comment on above: Performed By: #### L [id number] ####[facility] ([facility])[address] [place] [address] UREA NITROGEN/CREATININE (MASS RATIO) IN SER/PLAS 15.2 Normal [facility] Comment on above: Performed By: #### L [id number] ####[facility] ([facility])[address] [place] [address] CBC WITH AUTO DIFFERENTIALon 04-30-2023 Basophils (Bld) [#/Vol] 0.05 10*3/uL Normal 0.00-0.20 [facility] Comment on above: Performed By: #### L [id number] ####[facility] ([facility])[address] [place] [address] Basophils/100 WBC (Bld) 0.7 % Normal 0.0-1.0 [facility] Comment on above: Performed By: #### L [id number] ####[facility] ([facility])[address] [place] [address] Eosinophils (Bld) [#/Vol] 0.16 10*3/uL Normal 0.00-0.50 [facility] Comment on above: Performed By: #### L [id number] ####[facility] ([facility])[address] [place] [address] Eosinophils/100 WBC (Bld) 2.1 % Normal 0.0-6.0 [facility] Comment on above: Performed By: #### L [id number] ####[facility] ([facility])[address] [place] [address] Erythrocyte distribution width (RBC) [Ratio] 14.3 % Normal 11.5-15.0 [facility] Comment on above: Performed By: #### L [id number] ####[facility] ([facility])[address] [place] [address] ERYTHROCYTE MEAN CORPUSCULAR HEMOGLOBIN CONCENTRATION (G/DL) BY AUTOMATED 33.1 g/dL Normal 32.0-35.0 [facility] Comment on above: Performed By: #### L [id number] ####[facility] ([facility])[address] [place] [address] Hematocrit (Bld) [Volume fraction] 35.9 % Low 36.0-48.0 [facility] Comment on above: Performed By: #### L [id number] ####[facility] ([facility])[address] [place] [address] Hemoglobin (Bld) [Mass/Vol] 11.9 g/dL Low 12.0-15.0 [facility] Comment on above: Performed By: #### L [id number] ####[facility] ([facility])[address] [place] [address] Immature granulocytes (Bld) [#/Vol] 0.12 10*3/uL Normal 0.00-0.20 [facility] Comment on above: Performed By: #### L [id number] ####[facility] ([facility])[address] [place] [address] Immature granulocytes/100 WBC (Bld) 1.6 % High 0.0-1.0 [facility] Comment on above: Performed By: #### L [id number] ####[facility] ([facility])[address] [place] [address] Lymphocytes (Bld) [#/Vol] 1.30 10*3/uL Normal 1.20-4.00 [facility] Comment on above: Performed By: #### L [id number] ####[facility] ([facility])[address] [place] [address] Lymphocytes/100 WBC (Bld) 16.9 % Low 20.0-45.0 [facility] Comment on above: Performed By: #### L [id number] ####[facility] [place] [address] MCH (RBC) [Entitic mass] 29.6 pg Normal 27.0-33.0 [facility] Comment on above: Performed By: #### L [id number] ####[facility] ([facility])[address] [place] [address] MCV (RBC) [Entitic vol] 89.3 fL Normal 82.0-98.0 [facility] Comment on above: Performed By: #### L [id number] ####[facility] ([facility])[address] [place] [address] Monocytes (Bld) [#/Vol] 0.46 10*3/uL Normal 0.10-1.00 [facility] Comment on above: Performed By: #### L [id number] ####[facility] (BEAKER)[address] [place] [address] Monocytes/100 WBC (Bld) 6.0 % Normal 5.0-12.0 [facility] Comment on above: Performed By: #### L [id number] ####[facility] (BEAKER)[address] [place] [address] Neutrophils (Bld) [#/Vol] 5.58 10*3/uL Normal 1.60-7.60 [facility] Comment on above: Performed By: #### L [id number] ####[facility] [facility] [place] [address] Neutrophils/100 WBC (Bld) 72.7 % High 40.0-72.0 [facility] Comment on above: Performed By: #### L [id number] ####[facility] ([facility])[address] [place] [address] NRBC (PER 100 WBCS) BY AUTOMATED COUNT 0.0 % Normal 0 [facility] Comment on above: Performed By: #### L [id number] ####[facility] ([facility])[address] [place] [address] PLATELETS (10*3/UL) IN BLOOD AUTOMATED COUNT 295 10*3/uL Normal 150-400 [facility] Comment on above: Performed By: #### L [id number] ####[facility] ([facility])[address] [place] [address] RBC (Bld) [#/Vol] 4.02 10*6/uL Normal 3.80-5.00 [facility] Comment on above: Performed By: #### L [id number] ####[facility] ([facility])[address] [place] [address] WBC (Bld) [#/Vol] 7.67 10*3/uL Normal 4.00-10.60 [facility] Comment on above: Performed By: #### L [id number] ####[facility] ([facility])[address] [place] [address] HEPATIC FUNCTION PANELon Albumin [Mass/Vol] 4.6 g/dL Normal 3.5-5.7 [facility] Comment on above: Performed By: #### L [id number] ####[facility] ([facility])[address] [place] [address] ALP [Catalytic activity/Vol] 82 U/L Normal 34-104 [facility] Comment on above: Performed By: #### L [id number] ####[facility] [place] [address] ALT [Catalytic activity/Vol] 25 U/L Normal 7-52 [facility] Comment on above: Performed By: #### L [id number] ####[facility] ([facility])[address] [place] [address] AST [Catalytic activity/Vol] 19 U/L Normal 13-39 [facility] Comment on above: Performed By: #### L [id number] ####[facility] ([facility])[address] [place] [address] Bilirubin [Mass/Vol] 0.5 mg/dL Normal 0.3-1.[address] [facility] Comment on above: Performed By: #### L [id number] ####[facility] ([facility])[address] [place] [address] Magnesium [Mass/Vol] 0.1 mg/dL Normal 0-0.[address] [facility] Comment on above: Performed By: #### L [id number] ####[facility] ([facility])[address] [place] [address] Protein [Mass/Vol] 7.2 g/dL Normal 6.0-8.3 [facility] Comment on above: Performed By: #### L [id number] ####[facility] ([facility])[address] [place] [address] Labon 04-30-2023 Lab Normal [facility] MAGNESIUMon 04-30-2023 Magnesium [Mass/Vol] 1.6 mg/dL Low 1.9-2.[address] [facility] Comment on above: Performed By: #### L [id number] ####[facility] ([facility])[address] [place] [address] PANEL REACTIVE ANTIBODYon HOLD SPECIMEN Hold for add-ons. Normal [facility] Comment on above: Result Comment: Auto resulted. Performed By: #### L [id number] ####[facility] TISSUE TYPING (HISTOTRAC)[address] [place] [address] [place] PHOSPHORUSon 04-30-2023 Magnesium [Mass/Vol] 2.3 mg/dL Low 2.5-5.[address] [facility] Comment on above: Performed By: #### L [id number] ####[facility] (BEAKER)[address] [place] [address] SINGLE ANTIGEN CLASS Ion AB SCREEN COMMENTS No Class I donor spe cific antibody identified Normal [facility] Comment on above: Performed By: #### L [id number] ####[facility] TISSUE TYPING (HISTOTRAC)[address] [place] [address] [place] CLASS I TESTED DATE Normal [facility] Comment on above: Performed By: #### L [id number] ####[facility] TISSUE TYPING (HISTOTRAC)[address] [place] [address] [facility] SIGNED BY Signed by Sere escamilla CHT([facility]) MT([facility]), Kerrick Kleaner Operator Transplant Immunology [facility] Comment on above: Result Comment: Clas s I Antigen Microbeads Performed By: #### L [id number] ####[facility] TISSUE TYPING (HISTOTRAC)[address] [place] [address] [place] Performed By: #### L [id number] ####[facility] TISSUE TYPING (HISTOTRAC)[address] [place] [address] [place] SINGLE ANTIGEN CLASS 1 TEST METHOD Class I Single Antigen Normal [facility] Comment on above: Performed By: #### L [id number] ####[facility] TISSUE TYPING (HISTOTRAC)[address] [place] [address] [place] SINGLE ANTIGEN CLASS IIon AB SCREEN COMMENTS No Class II donor specific antibody identified Normal [facility] Comment on above: Performed By: #### L [id number] ####[facility] TISSUE TYPING (HISTOTRAC)[address] [place] [address] [place] CLASS II TESTED DATE [facility] Comment on above: Performed By: #### L [id number] ####[facility] TISSUE TYPING (HISTOTRAC)[address] [place] [address] [place] SINGLE ANTIGEN CLASS 2 TEST METHOD Class II Single Antigen Normal [facility] Comment on above: Result Comment: Clas s II Antigen Microbeads Performed By: #### L [id number] ####[facility] TISSUE TYPING (HISTOTRAC)[address] [place] [address] [facility] TACROLIMUS LEVELon Tacrolimus (Bld) [Mass/Vol] 9.3 ng/mL Normal 5.0-20.0 [facility] Comment on above: Result Comment: The [employer] Tacrolimus assay is a delayed one-step immunoassay for the quantitative determination of tacrolimus in human whole blood using the chemiluminescent microparticle immunoassay (CMIA) technology with flexible assay protocols, referred to as Chemiflex. Performed By: #### L [id number] ####[facility] [place] [address] URIC ACIDon 04-30-2023 Magnesium [Mass/Vol] 4.9 mg/dL Normal 2.3-6.[address] [facility] Comment on above: Performed By: #### L [id number] ####[facility] [place] [address] Follow-Upon 04-16-2023 Follow-Up Normal [facility] BASIC METABOLIC PANELon 06-2 Anion gap [Moles/Vol] 14 mmol/L Normal 7-20 [facility] Comment on above: Performed By: #### L [id number] ####[facility] (BEAKER)[address] [place] [address] Calcium [Mass/Vol] 9.4 mg/dL Normal 8.6-10.3 [facility] Comment on above: Performed By: #### L [id number] ####[facility] (BEAKER)[address] [place] [address] Chloride [Moles/Vol] 104 mmol/L Normal 98-[address] [facility] Comment on above: Performed By: #### L [id number] ####[facility] (BEAKER)[address] [place] [address] CO2 [Moles/Vol] 24 mmol/L Normal 21-31 [facility] Comment on above: Performed By: #### L [id number] ####[facility] ([facility])[address] [place] [address] Creatinine [Mass/Vol] 1.26 mg/dL High 0.60-1.20 [facility] Comment on above: Performed By: #### L [id number] ####[facility] ([facility])[address] [place] [address] GLOMERULAR FILTRATION RATE ML/MIN/1.73 SQ M.PREDICTED 53.0 mL/min/1.73m*2 Low >60.0 [facility] Comment on above: Result Comment: [facility]???s estimated glomerular filtration rate (eGFR) will [...] of individuals. Performed By: #### L [id number] ####[facility] ([facility])[address] [place] [address] Glucose [Mass/Vol] 155 mg/dL High 70-100 [facility] Comment on above: Performed By: #### L [id number] ####[facility] ([facility])[address] [place] [address] Potassium [Moles/Vol] 3.6 mmol/L Normal 3.5-5.1 [facility] Comment on above: Performed By: #### L [id number] ####[facility] ([facility])[address] [place] [address] Sodium [Moles/Vol] 138 mmol/L Normal 136-145 [facility] Comment on above: Performed By: #### L [id number] ####[facility] ([facility])[address] [place] [address] Urea nitrogen [Mass/Vol] 19 mg/dL Normal 7-25 [facility] Comment on above: Performed By: #### L [id number] ####[facility] ([facility])[address] [place] [address] UREA NITROGEN/CREATININE (MASS RATIO) IN SER/PLAS 15.1 Normal [facility] Comment on above: Performed By: #### L [id number] ####[facility] ([facility])[address] [place] [address] CBC WITH AUTO DIFFERENTIALon 03-31-2023 Basophils (Bld) [#/Vol] 0.07 10*3/uL Normal 0.00-0.20 [facility] Comment on above: Performed By: #### L [id number] ####[facility] ([facility])[address] [place] [address] Basophils/100 WBC (Bld) 0.9 % Normal 0.0-1.0 [facility] Comment on above: Performed By: #### L [id number] ####[facility] ([facility])[address] [place] [address] Eosinophils (Bld) [#/Vol] 0.22 10*3/uL Normal 0.00-0.50 [facility] Comment on above: Performed By: #### L [id number] ####[facility] ([facility])[address] [place] [address] Eosinophils/100 WBC (Bld) 2.9 % Normal 0.0-6.0 [facility] Comment on above: Performed By: #### L [id number] ####[facility] ([facility])[address] [place] [address] Erythrocyte distribution width (RBC) [Ratio] 14.0 % Normal 11.5-15.0 [facility] Comment on above: Performed By: #### L [id number] ####[facility] [place] [address] ERYTHROCYTE MEAN CORPUSCULAR HEMOGLOBIN CONCENTRATION (G/DL) BY AUTOMATED 32.1 g/dL Normal 32.0-35.0 [facility] Comment on above: Performed By: #### L [id number] ####[facility] (BEAKER)[address] [place] [address] Hematocrit (Bld) [Volume fraction] 36.5 % Normal 36.0-48.0 [facility] Comment on above: Performed By: #### L [id number] ####[facility] [place] [address] Hemoglobin (Bld) [Mass/Vol] 11.7 g/dL Low 12.0-15.0 [facility] Comment on above: Performed By: #### L [id number] ####[facility] ([facility])[address] [place] [address] Immature granulocytes (Bld) [#/Vol] 0.19 10*3/uL Normal 0.00-0.20 [facility] Comment on above: Performed By: #### L [id number] ####[facility] [place] [address] Immature granulocytes/100 WBC (Bld) 2.5 % High 0.0-1.0 [facility] Comment on above: Performed By: #### L [id number] ####[facility] [place] [address] Lymphocytes (Bld) [#/Vol] 1.44 10*3/uL Normal 1.20-4.00 [facility] Comment on above: Performed By: #### L [id number] ####[facility] (BEAKER)[address] [place] [address] Lymphocytes/100 WBC (Bld) 19.0 % Low 20.0-45.0 [facility] Comment on above: Performed By: #### L [id number] ####[facility] (BEAKER)[address] [place] [address] MCH (RBC) [Entitic mass] 29.5 pg Normal 27.0-33.0 [facility] Comment on above: Performed By: #### L [id number] ####[facility] (BEAKER)[address] [place] [address] MCV (RBC) [Entitic vol] 91.9 fL Normal 82.0-98.0 [facility] Comment on above: Performed By: #### L [id number] ####[facility] (BEAKER)[address] [place] [address] Monocytes (Bld) [#/Vol] 0.54 10*3/uL Normal 0.10-1.00 [facility] Comment on above: Performed By: #### L [id number] ####[facility] (BEAKER)[address] [place] [address] Monocytes/100 WBC (Bld) 7.1 % Normal 5.0-12.0 [facility] Comment on above: Performed By: #### L [id number] ####[facility] (BEAKER)[address] [place] [address] Neutrophils (Bld) [#/Vol] 5.12 10*3/uL Normal 1.60-7.60 [facility] Comment on above: Performed By: #### L [id number] ####[facility] (BEAKER)[address] [place] [address] Neutrophils/100 WBC (Bld) 67.6 % Normal 40.0-72.0 [facility] Comment on above: Performed By: #### L [id number] ####[facility] (BEAKER)[address] [place] [address] NRBC (PER 100 WBCS) BY AUTOMATED COUNT 0.0 % Normal 0 [facility] Comment on above: Performed By: #### L [id number] ####[facility] (BEAKER)[address] [place] [address] PLATELETS (10*3/UL) IN BLOOD AUTOMATED COUNT 274 10*3/uL Normal 150-400 [facility] Comment on above: Performed By: #### L [id number] ####[facility] (BEAKER)[address] [place] [address] RBC (Bld) [#/Vol] 3.97 10*6/uL Normal 3.80-5.00 [facility] Comment on above: Performed By: #### L [id number] ####[facility] ([facility])[address] [place] [address] WBC (Bld) [#/Vol] 7.58 10*3/uL Normal 4.00-10.60 [facility] Comment on above: Performed By: #### L [id number] ####[facility] ([facility])[address] [place] [address] HEPATIC FUNCTION PANELon Albumin [Mass/Vol] 4.4 g/dL Normal 3.5-5.7 [facility] Comment on above: Performed By: #### L [id number] ####[facility] ([facility])[address] [place] [address] ALP [Catalytic activity/Vol] 80 U/L Normal 34-104 [facility] Comment on above: Performed By: #### L [id number] ####[facility] ([facility])[address] [place] [address] ALT [Catalytic activity/Vol] 19 U/L Normal 7-52 [facility] Comment on above: Performed By: #### L [id number] ####[facility] ([facility])[address] [place] [address] AST [Catalytic activity/Vol] 17 U/L Normal 13-39 [facility] Comment on above: Performed By: #### L [id number] ####[facility] ([facility])[address] [place] [address] Bilirubin [Mass/Vol] 0.4 mg/dL Normal 0.3-1.[address] [facility] Comment on above: Performed By: #### L [id number] ####[facility] ([facility])[address] [place] [address] Magnesium [Mass/Vol] 0.1 mg/dL Normal 0-0.[address] [facility] Comment on above: Performed By: #### L [id number] ####[facility] (BEAKER)[address] [place] [address] Protein [Mass/Vol] 7.4 g/dL Normal 6.0-8.3 [facility] Comment on above: Performed By: #### L [id number] ####[facility] (BEAKER)[address] [place] [address] LIPID PANELon 03-31-2023 CHOL/HDL 4.9 mg/dL Normal [facility] Comment on above: Performed By: #### L [id number] ####[facility] (BEAKER)[address] [place] [address] Cholesterol [Mass/Vol] 240 mg/dL High 120-200 [facility] Comment on above: Performed By: #### L [id number] ####[facility] (BEAKER)[address] [place] [address] Magnesium [Mass/Vol] 274 mg/dL High 40-[address] [facility] Comment on above: Result Comment: TRIG LYCERIDE REFERENCE RANGE:20 YEARS AND OLDER CARDIOVASCULAR RISKLESS THAN 150 mg/dL LOW [id number] TO 199 mg/dL BORDERLINE [id number] mg/dL AND GREATER HIGH RISK Performed By: #### L [id number] ####[facility] (BEAKER)[address] [place] [address] Magnesium [Mass/Vol] 136 mg/dL Normal 0-[address] [facility] Comment on above: Performed By: #### L [id number] ####[facility] (BEAKER)[address] [place] [address] Magnesium [Mass/Vol] 49 mg/dL Normal 23-[address] [facility] Comment on above: Performed By: #### L [id number] ####[facility] (BEAKER)[address] [place] [address] NON HDL CHOL. (LDL+VLDL) 191 Normal [facility] Comment on above: Performed By: #### L [id number] ####[facility] (BEAKER)[address] [place] [address] TOTAL VLDL-C 55 mg/dL High 0-40 [facility] Comment on above: Performed By: #### L [id number] ####[facility] ([facility]IM[facility])[address] [place] [address] Labon 03-31-2023 Lab Normal [facility] MAGNESIUMon 03-31-2023 Magnesium [Mass/Vol] 1.5 mg/dL Low 1.9-2.[address] [facility] Comment on above: Performed By: #### L [id number] ####[facility] ([facility])[address] [place] [address] PANEL REACTIVE ANTIBODYon HOLD SPECIMEN Hold for add-ons. Normal [facility] Comment on above: Result Comment: Auto resulted. Performed By: #### L [id number] ####[facility] TISSUE TYPING (H[place]AC[place] [address] [place] PHOSPHORUSon 03-31-2023 Magnesium [Mass/Vol] 2.6 mg/dL Normal 2.5-5.[address] [facility] Comment on above: Performed By: #### L [id number] ####[facility] ([facility] [place] [address] SINGLE ANTIGEN CLASS Ion AB SCREEN COMMENTS No Class I donor spe cific antibody identified Normal [facility] Comment on above: Performed By: #### L [id number] ####[facility] TISSUE TYPING (HISTOTRAC)[address] [place] [address] [place] CLASS I TESTED DATE [id number] Normal [facility] Comment on above: Performed By: #### L [id number] ####[facility] TISSUE TYPING (HISTOTRAC)[address] [place] [address] [facility] SINGLE ANTIGEN CLASS 1 TEST METHOD Class I Single Antigen Normal [facility] Comment on above: Performed By: #### L [id number] ####[facility] TISSUE TYPING (HISTOTRAC)[address] [place], [place] [address] [place] [address] SINGLE ANTIGEN CLASS IIon AB SCREEN COMMENTS No Class II donor specific antibody identified Normal [facility] Comment on above: Performed By: #### L [id number] ####[facility] TISSUE TYPING (HISTOTRAC)[address] CLASS II TESTED DATE [id number] [facility] Comment on above: Performed By: #### L [id number] ####[facility] TISSUE TYPING (HISTOTRAC)[address] SIGNED BY Signed by Sree escamilla [facility] PARKER(ASCP), Kerrick Kleaner Operator Transplant Immunology [facility] Comment on above: Performed By: #### L [id number] ####[facility] TISSUE TYPING (HISTOTRAC)[address] Result Comment: Clas s I Antigen Microbeads Performed By: #### L [id number] ####[facility] TISSUE TYPING (HISTOTRAC)[address] SINGLE ANTIGEN CLASS 2 TEST METHOD Class II Single Antigen Normal [facility] Comment on above: Result Comment: Clas s II Antigen Microbeads Performed By: #### L [id number] ####[facility] TISSUE TYPING (HISTOTRAC)[address] TACROLIMUS LEVELon Tacrolimus (Bld) [Mass/Vol] 6.2 ng/mL Normal 5.0-20.0 [facility] Comment on above: Result Comment: The [employer] Tacrolimus assay is a delayed one-step immunoassay for the quantitative determination of tacrolimus in human whole blood using the chemiluminescent microparticle immunoassay (CMIA) technology with flexible assay protocols, referred to as Chemiflex. Performed By: #### L [id number] ####[facility] (BEAKER)[address] [place] [address] URIC ACIDon 03-31-2023 Magnesium [Mass/Vol] 5.3 mg/dL Normal 2.3-6.[address] [facility] Comment on above: Performed By: #### L [id number] ####[facility] (BEAKER)[address] [place] [address] 36on 02-28-2023 36 Refill is too soon, just sent over with 3 refills Normal [facility] Orders Onlyon 02-28-2023 Orders Only Normal [facility] BASIC METABOLIC PANELon 02-04 Anion gap [Moles/Vol] 13 mmol/L Normal 7-20 [facility] Comment on above: Performed By: #### L [id number] ####[facility] (BEAKER)[address] [place] [address] Calcium [Mass/Vol] 8.7 mg/dL Normal 8.6-10.3 [facility] Comment on above: Performed By: #### L [id number] ####[facility] (BEAKER)[address] [place] [address] Chloride [Moles/Vol] 104 mmol/L Normal 98-[address] [facility] Comment on above: Performed By: #### L [id number] ####[facility] (BEAKER)[address] [place] [address] CO2 [Moles/Vol] 23 mmol/L Normal 21-31 [facility] Comment on above: Performed By: #### L [id number] ####[facility] (BEAKER)[address] [place] [address] Creatinine [Mass/Vol] 1.21 mg/dL High 0.60-1.20 [facility] Comment on above: Performed By: #### L [id number] ####[facility] (BEAKER)[address] [place] [address] GLOMERULAR FILTRATION RATE ML/MIN/1.73 SQ M.PREDICTED 55.6 mL/min/1.73m*2 Low >60.0 [facility] Comment on above: Result Comment: [facility]???s estimated glomerular filtration rate (eGFR) will [...] of individuals. Performed By: #### L [id number] ####[facility] ([facility])[address] [place] [address] Glucose [Mass/Vol] 154 mg/dL High 70-100 [facility] Comment on above: Performed By: #### L [id number] ####[facility] ([facility])[address] [place] [address] Potassium [Moles/Vol] 3.3 mmol/L Low 3.5-5.1 [facility] Comment on above: Performed By: #### L [id number] ####[facility] ([facility])[address] [facility] [place] [address] Sodium [Moles/Vol] 137 mmol/L Normal 136-145 [facility] Comment on above: Performed By: #### L [id number] ####[facility] ([facility])[address] [place] [address] Urea nitrogen [Mass/Vol] 19 mg/dL Normal 7-25 [facility] Comment on above: Performed By: #### L [id number] ####[facility] ([facility])[address] [facility] [address] UREA NITROGEN/CREATININE (MASS RATIO) IN SER/PLAS 15.7 Normal [facility] Comment on above: Performed By: #### L [id number] ####[facility] ([facility])[address] [facility] [address] BK VIRUS, PLASMA, QUANTITATI VEon 02-24-2023 BK QUANTITATION Not detected Normal Not Detected [facility] Comment on above: Result Comment: Meth od: BK virus was measured by quantitative polymerase chain reaction using a fluorescent hydrolysis probe targeting the polyomavirus BK MOLASSES COLORING OPERATOR-1 gene.The lower limit of quantitation of the assay is 500 copies of BK genome per milliliter of plasma or urine, and any detectable BK DNA below that level is reported as: Detected, <500 copies/ml. Serial BK virus measurement can be used to monitor disease activity. (Reference: Gordon rogel. J CLIN MICRO 2004; 42:7525-7963).This test was developed and its performance characteristics determined by the [facility]. It has not been approved by the US Food and Drug Administration. However, such approval is not required for clinical implementation, and test results have been shown to be clinically useful. This laboratory is CAP accredited and CLIA certified to perform high complexity testing. Performed By: #### L [id number] ####[facility] ([facility])[address] [place] [address] BK QUANTITATION LOG Not detected Normal Not Detected [facility] Comment on above: Performed By: #### L [id number] ####[facility] ([facility])[address] [place] [address] CBC WITH AUTO DIFFERENTIALon 02-24-2023 Basophils (Bld) [#/Vol] 0.05 10*3/uL Normal 0.00-0.20 [facility] Comment on above: Performed By: #### L [id number] ####[facility] ([facility])[address] [place] [address] Basophils/100 WBC (Bld) 0.7 % Normal 0.0-1.0 [facility] Comment on above: Performed By: #### L [id number] ####[facility] ([facility])[address] [place] [address] Eosinophils (Bld) [#/Vol] 0.17 10*3/uL Normal 0.00-0.50 [facility] Comment on above: Performed By: #### L [id number] ####[facility] ([facility])[address] [place] [address] Eosinophils/100 WBC (Bld) 2.5 % Normal 0.0-6.0 [facility] Comment on above: Performed By: #### L [id number] ####[facility] ([facility])[address] [place] [address] Erythrocyte distribution width (RBC) [Ratio] 15.4 % High 11.5-15.0 [facility] Comment on above: Performed By: #### L [id number] ####[facility] ([facility])[address] [place] [address] ERYTHROCYTE MEAN CORPUSCULAR HEMOGLOBIN CONCENTRATION (G/DL) BY AUTOMATED 32.7 g/dL Normal 32.0-35.0 [facility] Comment on above: Performed By: #### L [id number] ####[facility] ([facility])[address] [place] [address] Hematocrit (Bld) [Volume fraction] 30.3 % Low 36.0-48.0 [facility] Comment on above: Performed By: #### L [id number] ####[facility] ([facility])[address] [place] [address] Hemoglobin (Bld) [Mass/Vol] 9.9 g/dL Low 12.0-15.0 [facility] Comment on above: Performed By: #### L [id number] ####[facility] ([facility])[address] [place] [address] Immature granulocytes (Bld) [#/Vol] 0.13 10*3/uL Normal 0.00-0.20 [facility] Comment on above: Performed By: #### L [id number] ####[facility] ([facility])[address] [place] [address] Immature granulocytes/100 WBC (Bld) 1.9 % High 0.0-1.0 [facility] Comment on above: Performed By: #### L [id number] ####[facility] ([facility])[address] [place], [place] [address] Lymphocytes (Bld) [#/Vol] 1.43 10*3/uL Normal 1.20-4.00 [facility] Comment on above: Performed By: #### L [id number] ####[facility] ([facility])[address] [place] [address] Lymphocytes/100 WBC (Bld) 21.0 % Normal 20.0-45.0 [facility] Comment on above: Performed By: #### L [id number] ####[facility] ([facility])[address] [place] [address] MCH (RBC) [Entitic mass] 30.7 pg Normal 27.0-33.0 [facility] Comment on above: Performed By: #### L [id number] ####[facility] ([facility])[address] [place] [address] MCV (RBC) [Entitic vol] 93.8 fL Normal 82.0-98.0 [facility] Comment on above: Performed By: #### L [id number] ####[facility] ([facility])[address] [place] [address] Monocytes (Bld) [#/Vol] 0.51 10*3/uL Normal 0.10-1.00 [facility] Comment on above: Performed By: #### L [id number] ####[facility] ([facility])[address] [place] [address] Monocytes/100 WBC (Bld) 7.5 % Normal 5.0-12.0 [facility] Comment on above: Performed By: #### L [id number] ####[facility] ([facility])[address] [place] [address] Neutrophils (Bld) [#/Vol] 4.52 10*3/uL Normal 1.60-7.60 [facility] Comment on above: Performed By: #### L [id number] ####[facility] ([facility])[address] [place] [address] Neutrophils/100 WBC (Bld) 66.4 % Normal 40.0-72.0 [facility] Comment on above: Performed By: #### L [id number] ####[facility] ([facility])[address] [place] [address] NRBC (PER 100 WBCS) BY AUTOMATED COUNT 0.3 % High 0 [facility] Comment on above: Performed By: #### L [id number] ####[facility] ([facility])[address] [place] [address] PLATELETS (10*3/UL) IN BLOOD AUTOMATED COUNT 218 10*3/uL Normal 150-400 [facility] Comment on above: Performed By: #### L [id number] ####[facility] ([facility])[address] [place] [address] RBC (Bld) [#/Vol] 3.23 10*6/uL Low 3.80-5.00 [facility] Comment on above: Performed By: #### L [id number] ####[facility] ([facility])[address] [place] [address] WBC (Bld) [#/Vol] 6.81 10*3/uL Normal 4.00-10.60 [facility] Comment on above: Performed By: #### L [id number] ####[facility] ([facility])[address] [place] [address] HEMOGLOBIN A1Con 02-24-2023 Glucose [Mass/Vol] 108 mg/dL Normal [facility] Comment on above: Performed By: #### L [id number] ####[facility] ([facility])[address] [place] [address] HbA1c (Bld) [Mass fraction] 5.4 % Normal 4.0-6.0 [facility] Comment on above: Performed By: #### L [id number] ####[facility] ([facility])[address] [place] [address] HEPATIC FUNCTION PANELon Albumin [Mass/Vol] 4.3 g/dL Normal 3.5-5.7 [facility] Comment on above: Performed By: #### L [id number] ####[facility] ([facility])[address] [place] [address] ALP [Catalytic activity/Vol] 79 U/L Normal 34-104 [facility] Comment on above: Performed By: #### L [id number] ####[facility] ([facility])[address] [place] [address] ALT [Catalytic activity/Vol] 21 U/L Normal 7-52 [facility] Comment on above: Performed By: #### L [id number] ####[facility] ([facility])[address] [place] [address] AST [Catalytic activity/Vol] 18 U/L Normal 13-39 [facility] Comment on above: Performed By: #### L [id number] ####[facility] [place] [address] Bilirubin [Mass/Vol] 0.5 mg/dL Normal 0.3-1.[address] [facility] Comment on above: Performed By: #### L [id number] ####[facility] ([facility])[address] [place] [address] Magnesium [Mass/Vol] 0.1 mg/dL Normal 0-0.[address] [facility] Comment on above: Performed By: #### L [id number] ####[facility] ([facility])[address] [place] [address] Protein [Mass/Vol] 6.8 g/dL Normal 6.0-8.3 [facility] Comment on above: Performed By: #### L [id number] ####[facility] ([facility])[address] [place] [address] LIPID PANELon 02-24-2023 CHOL/HDL 4.6 mg/dL Normal [facility] Comment on above: Performed By: #### L [id number] ####[facility] ([facility])[address] [place] [address] Cholesterol [Mass/Vol] 211 mg/dL High 120-200 [facility] Comment on above: Performed By: #### L [id number] ####[facility] ([facility])[address] [place] [address] Magnesium [Mass/Vol] 263 mg/dL High 40-149 [facility] Comment on above: Result Comment: TRIG LYCERIDE REFERENCE RANGE:20 YEARS AND OLDER CARDIOVASCULAR RISKLESS THAN 150 mg/dL LOW [id number] TO 199 mg/dL BORDERLINE [id number] mg/dL AND GREATER HIGH RISK Performed By: #### L [id number] ####[facility] ([facility])[address] [place] [address] Magnesium [Mass/Vol] 112 mg/dL Normal 0-[address] [facility] Comment on above: Performed By: #### L [id number] ####[facility] ([facility])[address] [place] [address] Magnesium [Mass/Vol] 46 mg/dL Normal 23-[address] [facility] Comment on above: Performed By: #### L [id number] ####[facility] ([facility])[address] [place] [address] NON HDL CHOL. (LDL+VLDL) 165 Normal [facility] Comment on above: Performed By: #### L [id number] ####[facility] ([facility])[address] [place] [address] TOTAL VLDL-C 53 mg/dL High 0-40 [facility] Comment on above: Performed By: #### L [id number] ####[facility] ([facility])[address] [place] [address] Labon 02-24-2023 Lab Normal [facility] MAGNESIUMon 02-24-2023 Magnesium [Mass/Vol] 1.7 mg/dL Low 1.9-2.[address] [facility] Comment on above: Performed By: #### L [id number] ####[facility] ([facility])[address] [place] [address] PANEL REACTIVE ANTIBODYon HOLD SPECIMEN Hold for add-ons. Normal [facility] Comment on above: Result Comment: Auto resulted. Performed By: #### L [id number] ####[facility] ([facility])[address] [place] [address] PHOSPHORUSon 02-24-2023 Magnesium [Mass/Vol] 2.3 mg/dL Low 2.5-5.[address] [facility] Comment on above: Performed By: #### L [id number] ####[facility] ([facility]ER)[address] [place] [address] SINGLE ANTIGEN CLASS Ion AB SCREEN COMMENTS No Class I donor spe cific antibody identified Normal [facility] Comment on above: Performed By: #### L [id number] ####[facility] TISSUE TYPING (HISTOTRAC)[address] [place] [address] [place] CLASS I TESTED DATE Normal [facility] Comment on above: Performed By: #### L [id number] ####[facility] TISSUE TYPING (HISTOTRAC)[address] [place] [address] [facility] SINGLE ANTIGEN CLASS 1 TEST METHOD Class I Single Antigen Normal [facility] Comment on above: Performed By: #### L [id number] ####[facility] TISSUE TYPING (HISTOTRAC)[address] [place] [address] [facility] SINGLE ANTIGEN CLASS IIon AB SCREEN COMMENTS No Class II donor specific antibody identified Normal [facility] Comment on above: Performed By: #### L [id number] ####[facility] TISSUE TYPING (HISTOTRAC)[address] [place] [address] [place] CLASS II TESTED DATE [facility] Comment on above: Performed By: #### L [id number] ####[facility] TISSUE TYPING (HISTOTRAC)[address] [place] [address] [facility] SIGNED BY Signed by Sree escamilla [facility] MT(ASCP), Kerrick Kleaner Operator Transplant Immunology [facility] Comment on above: Performed By: #### L [id number] ####[facility] TISSUE TYPING (HISTOTRAC)[address] [place] [address] [facility] Result Comment: Clas s I Antigen Microbeads Performed By: #### L [id number] ####[facility] TISSUE TYPING (HISTOTRAC)[address] [place] [address] [facility] SINGLE ANTIGEN CLASS 2 TEST METHOD Class II Single Antigen Normal [facility] Comment on above: Result Comment: Clas s II Antigen Microbeads Performed By: #### L [id number] ####[facility] TISSUE TYPING (HISTOTRAC)[address] [place] [address] [place] TACROLIMUS LEVELon Tacrolimus (Bld) [Mass/Vol] 5.9 ng/mL Normal 5.0-20.0 [facility] Comment on above: Result Comment: The MARCELO COUNTER SERVER Tacrolimus assay is a delayed one-step immunoassay for the quantitative determination of tacrolimus in human whole blood using the chemiluminescent microparticle immunoassay (CMIA) technology with flexible assay protocols, referred to as Chemiflex. Performed By: #### L [id number] ####[facility] ([facility])[address] [place] [address] URIC ACIDon 02-24-2023 Magnesium [Mass/Vol] 4.6 mg/dL Normal 2.3-6.[address] [facility] Comment on above: Performed By: #### L [id number] ####[facility] ([facility] [place] [address] Follow-Upon 02-03-2023 Follow-Up Normal [facility] BASIC METABOLIC PANELon 01-05 Anion gap [Moles/Vol] 13 mmol/L Normal 7-20 [facility] Comment on above: Performed By: #### L [id number] ####[facility] ([facility])[address] [place] [address] Calcium [Mass/Vol] 9.2 mg/dL Normal 8.6-10.3 [facility] Comment on above: Performed By: #### L [id number] ####[facility] (BEAKER)[address] [place] [address] Chloride [Moles/Vol] 104 mmol/L Normal 98-[address] [facility] Comment on above: Performed By: #### L [id number] ####[facility] ([facility])[address] [place] [address] CO2 [Moles/Vol] 24 mmol/L Normal 21-31 [facility] Comment on above: Performed By: #### L [id number] ####[facility] ([facility])[address] [place] [address] Creatinine [Mass/Vol] 1.39 mg/dL High 0.60-1.20 [facility] Comment on above: Performed By: #### L [id number] ####[facility] ([facility])[address] [place] [address] GLOMERULAR FILTRATION RATE ML/MIN/1.73 SQ M.PREDICTED 47.1 mL/min/1.73m*2 Low >60.0 [facility] Comment on above: Result Comment: [facility]???s estimated glomerular filtration rate (eGFR) will [...] of individuals. Performed By: #### L [id number] ####[facility] ([facility])[address] [place] [address] Glucose [Mass/Vol] 174 mg/dL High 70-100 [facility] Comment on above: Performed By: #### L [id number] ####[facility] ([facility])[address] [place] [address] Potassium [Moles/Vol] 3.8 mmol/L Normal 3.5-5.1 [facility] Comment on above: Performed By: #### L [id number] ####[facility] ([facility])[address] [place] [address] Sodium [Moles/Vol] 137 mmol/L Normal 136-145 [facility] Comment on above: Performed By: #### L [id number] ####[facility] (BEAKER)[address] [place] [address] Urea nitrogen [Mass/Vol] 20 mg/dL Normal 7-25 [facility] Comment on above: Performed By: #### L [id number] ####[facility] ([facility])[address] [place] [address] UREA NITROGEN/CREATININE (MASS RATIO) IN SER/PLAS 14.4 Normal [facility] Comment on above: Performed By: #### L [id number] ####[facility] ([facility])[address] [place] [address] CBC WITH AUTO DIFFERENTIALon 02-01-2023 Basophils (Bld) [#/Vol] 0.07 10*3/uL Normal 0.00-0.20 [facility] Comment on above: Performed By: #### L [id number] ####[facility] ([facility])[address] [place] [address] Basophils/100 WBC (Bld) 0.8 % Normal 0.0-1.0 [facility] Comment on above: Performed By: #### L [id number] ####[facility] ([facility])[address] [place] [address] Eosinophils (Bld) [#/Vol] 0.36 10*3/uL Normal 0.00-0.50 [facility] Comment on above: Performed By: #### L [id number] ####[facility] ([facility])[address] [place] [address] Eosinophils/100 WBC (Bld) 4.2 % Normal 0.0-6.0 [facility] Comment on above: Performed By: #### L [id number] ####[facility] ([facility])[address] [place] [address] Erythrocyte distribution width (RBC) [Ratio] 14.7 % Normal 11.5-15.0 [facility] Comment on above: Performed By: #### L [id number] ####[facility] ([facility])[address] [place] [address] ERYTHROCYTE MEAN CORPUSCULAR HEMOGLOBIN CONCENTRATION (G/DL) BY AUTOMATED 33.0 g/dL Normal 32.0-35.0 [facility] Comment on above: Performed By: #### L [id number] ####[facility] ([facility])[address] [place] [address] Hematocrit (Bld) [Volume fraction] 30.9 % Low 36.0-48.0 [facility] Comment on above: Performed By: #### L [id number] ####[facility] ([facility])[address] [place] [address] Hemoglobin (Bld) [Mass/Vol] 10.2 g/dL Low 12.0-15.0 [facility] Comment on above: Performed By: #### L [id number] ####[facility] ([facility])[address] [place] [address] Immature granulocytes (Bld) [#/Vol] 0.14 10*3/uL Normal 0.00-0.20 [facility] Comment on above: Performed By: #### L [id number] ####[facility] (BEAKER)[address] [place] [address] Immature granulocytes/100 WBC (Bld) 1.6 % High 0.0-1.0 [facility] Comment on above: Performed By: #### L [id number] ####[facility] (BEAKER)[address] [place] [address] Lymphocytes (Bld) [#/Vol] 0.58 10*3/uL Low 1.20-4.00 [facility] Comment on above: Performed By: #### L [id number] ####[facility] (BEAKER)[address] [place] [address] Lymphocytes/100 WBC (Bld) 6.7 % Low 20.0-45.0 [facility] Comment on above: Performed By: #### L [id number] ####[facility] (BEAKER)[address] [place] [address] MCH (RBC) [Entitic mass] 31.1 pg Normal 27.0-33.0 [facility] Comment on above: Performed By: #### L [id number] ####[facility] ([facility])[address] [place] [address] MCV (RBC) [Entitic vol] 94.2 fL Normal 82.0-98.0 [facility] Comment on above: Performed By: #### L [id number] ####[facility] ([facility])[address] [place] [address] Monocytes (Bld) [#/Vol] 0.59 10*3/uL Normal 0.10-1.00 [facility] Comment on above: Performed By: #### L [id number] ####[facility] ([facility])[address] [place] [address] Monocytes/100 WBC (Bld) 6.9 % Normal 5.0-12.0 [facility] Comment on above: Performed By: #### L [id number] ####[facility] ([facility])[address] [place] [address] Neutrophils (Bld) [#/Vol] 6.87 10*3/uL Normal 1.60-7.60 [facility] Comment on above: Performed By: #### L [id number] ####[facility] ([facility])[address] [place] [address] Neutrophils/100 WBC (Bld) 79.8 % High 40.0-72.0 [facility] Comment on above: Performed By: #### L [id number] ####[facility] ([facility])[address] [place] [address] NRBC (PER 100 WBCS) BY AUTOMATED COUNT 0.0 % Normal 0 [facility] Comment on above: Performed By: #### L [id number] ####[facility] [place] [address] PLATELETS (10*3/UL) IN BLOOD AUTOMATED COUNT 233 10*3/uL Normal 150-400 [facility] Comment on above: Performed By: #### L [id number] ####[facility] ([facility])[address] [place] [address] RBC (Bld) [#/Vol] 3.28 10*6/uL Low 3.80-5.00 [facility] Comment on above: Performed By: #### L [id number] ####[facility] ([facility])[address] [place] [address] WBC (Bld) [#/Vol] 8.61 10*3/uL Normal 4.00-10.60 [facility] Comment on above: Performed By: #### L [id number] ####[facility] ([facility])[address] [place] [address] CKon 02-01-2023 CREATINE KINASE (U/L) IN SER/PLAS 26.0 U/L Low 30.0-223.0 [facility] Comment on above: Performed By: #### L [id number] ####[facility] ([facility])[address] [place] [address] HEPATIC FUNCTION PANELon Albumin [Mass/Vol] 4.2 g/dL Normal 3.5-5.7 [facility] Comment on above: Performed By: #### L [id number] ####[facility] ([facility])[address] [place] [address] ALP [Catalytic activity/Vol] 85 U/L Normal 34-104 [facility] Comment on above: Performed By: #### L [id number] ####[facility] ([facility])[address] [place] [address] ALT [Catalytic activity/Vol] 26 U/L Normal 7-52 [facility] Comment on above: Performed By: #### L [id number] ####[facility] ([facility])[address] [place] [address] AST [Catalytic activity/Vol] 18 U/L Normal 13-39 [facility] Comment on above: Performed By: #### L [id number] ####[facility] ([facility])[address] [place] [address] Bilirubin [Mass/Vol] 0.6 mg/dL Normal 0.3-1.[address] [facility] Comment on above: Performed By: #### L [id number] ####[facility] (BEAKER)[address] [place] [address] Magnesium [Mass/Vol] 0.1 mg/dL Normal 0-0.[address] [facility] Comment on above: Performed By: #### L [id number] ####[facility] ([facility])[address] [place] [address] Protein [Mass/Vol] 6.8 g/dL Normal 6.0-8.3 [facility] Comment on above: Performed By: #### L [id number] ####[facility] [place] [address] LIPID PANELon 02-01-2023 CHOL/HDL 4.0 mg/dL Normal [facility] Comment on above: Performed By: #### L [id number] ####[facility] ([facility])[address] [place] [address] Cholesterol [Mass/Vol] 194 mg/dL Normal 120-200 [facility] Comment on above: Performed By: #### L [id number] ####[facility] [place] [address] Magnesium [Mass/Vol] 258 mg/dL High 40-[address] [facility] Comment on above: Result Comment: TRIG LYCERIDE REFERENCE RANGE:20 YEARS AND OLDER CARDIOVASCULAR RISKLESS THAN 150 mg/dL LOW [id number] TO 199 mg/dL BORDERLINE FOOS926 mg/dL AND GREATER HIGH RISK Performed By: #### L [id number] ####[facility] [place] [address] Magnesium [Mass/Vol] 93 mg/dL Normal 0-[address] [facility] Comment on above: Performed By: #### L [id number] ####[facility] ([facility])[address] [place] [address] Magnesium [Mass/Vol] 49 mg/dL Normal 23-[address] [facility] Comment on above: Performed By: #### L [id number] ####[facility] ([facility])[address] [place] [address] NON HDL CHOL. (LDL+VLDL) 145 Normal [facility] Comment on above: Performed By: #### L [id number] ####[facility] ([facility])[address] [place] [address] TOTAL VLDL-C 52 mg/dL High 0-40 [facility] Comment on above: Performed By: #### L [id number] ####[facility] ([facility])[address] [place] [address] Labon 02-01-2023 Lab Normal [facility] MAGNESIUMon 02-01-2023 Magnesium [Mass/Vol] 1.6 mg/dL Low 1.9-2.[address] [facility] Comment on above: Performed By: #### L [id number] ####[facility] ([facility])[address] [place] [address] MYOGLOBIN, SERUMon 3 MYOGLOBIN (NG/ML) IN SER/PLAS 30 ng/mL Normal 0-90 [facility] Comment on above: Result Comment: A DO UBLING OF VALUES FROM SERIAL BLOOD COLLECTIONS (1 - 2 HOURS APART) IS MORE INDICATIVE OF A M.I. THAN THE ABSOLUTE VALUE. Performed By: #### L [id number] ####[facility] ([facility])[address] [place] [address] PHOSPHORUSon 02-01-2023 Magnesium [Mass/Vol] 3.0 mg/dL Normal 2.5-5.[address] [facility] Comment on above: Performed By: #### L [id number] ####[facility] ([facility])[address] [place] [address] TACROLIMUS LEVELon 3 Tacrolimus (Bld) [Mass/Vol] 7.0 ng/mL Normal 5.0-20.0 [facility] Comment on above: Result Comment: The [employer] Tacrolimus assay is a delayed one-step immunoassay for the quantitative determination of tacrolimus in human whole blood using the chemiluminescent microparticle immunoassay (CMIA) technology with flexible assay protocols, referred to as Chemiflex. Performed By: #### L [id number] ####[facility] ([facility])[address] [place] [address] URIC ACIDon 02-01-2023 Magnesium [Mass/Vol] 3.9 mg/dL Normal 2.3-6.[address] [facility] Comment on above: Performed By: #### L [id number] ####[facility] ([facility])[address] [place] [address] Labon 01-17-2023 Lab Normal [facility] TACROLIMUS LEVELon 3 Tacrolimus (Bld) [Mass/Vol] 7.8 ng/mL Normal 5.0-20.0 [facility] Comment on above: Result Comment: The [employer] Tacrolimus assay is a delayed one-step immunoassay for the quantitative determination of tacrolimus in human whole blood using the chemiluminescent microparticle immunoassay (CMIA) technology with flexible assay protocols, referred to as Chemiflex. Performed By: #### L [id number] ####[facility] ([facility])[address] [place] [address] Labon 01-09-2023 Lab Normal [facility] TACROLIMUS LEVELon 3 Tacrolimus (Bld) [Mass/Vol] 4.4 ng/mL Low 5.0-20.0 [facility] Comment on above: Result Comment: The [employer] Tacrolimus assay is a delayed one-step immunoassay for the quantitative determination of tacrolimus in human whole blood using the chemiluminescent microparticle immunoassay (CMIA) technology with flexible assay protocols, referred to as Chemiflex. Performed By: #### L [id number] ####[facility] ([facility])[address] [place] [address] Labon 01-01-2023 Lab Normal [facility] TACROLIMUS LEVELon 3 Tacrolimus (Bld) [Mass/Vol] 10.0 ng/mL Normal 5.0-20.0 [facility] Comment on above: Result Comment: The [employer] Tacrolimus assay is a delayed one-step immunoassay for the quantitative determination of tacrolimus in human whole blood using the chemiluminescent microparticle immunoassay (CMIA) technology with flexible assay protocols, referred to as Chemiflex. Performed By: #### L [id number] ####[facility] ([facility])[address] [place] [address] BASIC METABOLIC PANELon - Anion gap [Moles/Vol] 13 mmol/L Normal 7-20 [facility] Comment on above: Performed By: #### L [id number] ####[facility] [place] [address] Calcium [Mass/Vol] 9.4 mg/dL Normal 8.6-10.3 [facility] Comment on above: Performed By: #### L [id number] ####[facility] [place] [address] Chloride [Moles/Vol] 103 mmol/L Normal 98-[address] [facility] Comment on above: Performed By: #### L [id number] ####[facility] ([facility]ER)[address] [place] [address] CO2 [Moles/Vol] 25 mmol/L Normal 21-31 [facility] Comment on above: Performed By: #### L [id number] ####[facility] ([facility]AKER)[address] [place] [address] Creatinine [Mass/Vol] 1.33 mg/dL High 0.60-1.20 [facility] Comment on above: Performed By: #### L [id number] ####[facility] ([facility]AKER)[address] [place] [address] GLOMERULAR FILTRATION RATE ML/MIN/1.73 SQ M.PREDICTED 49.7 mL/min/1.73m*2 Low >60.0 [facility] Comment on above: Result Comment: The [facility]???s estimated glomerular filtration rate (eGFR) will [...] of individuals. Performed By: #### L [id number] ####[facility] ([facility])[address] [place] [address] Glucose [Mass/Vol] 154 mg/dL High 70-100 [facility] Comment on above: Performed By: #### L [id number] ####[facility] ([facility])[address] [place] [address] Potassium [Moles/Vol] 3.5 mmol/L Normal 3.5-5.1 [facility] Comment on above: Performed By: #### L [id number] ####[facility] ([facility])[address] [place] [address] Sodium [Moles/Vol] 137 mmol/L Normal 136-145 [facility] Comment on above: Performed By: #### L [id number] ####[facility] ([facility])[address] [address] Urea nitrogen [Mass/Vol] 23 mg/dL Normal 7-25 [facility] Comment on above: Performed By: #### L [id number] ####[facility] ([facility])[address] [place] [address] UREA NITROGEN/CREATININE (MASS RATIO) IN SER/PLAS 17.3 Normal [facility] Comment on above: Performed By: #### L [id number] ####[facility] ([facility])[address] [address] CBC WITH AUTO DIFFERENTIALon 12-25-2022 Erythrocyte distribution width (RBC) [Ratio] 13.3 % Normal 11.5-15.0 [facility] Comment on above: Performed By: #### L [id number] ####[facility] ([facility])[address] [place] [address] ERYTHROCYTE MEAN CORPUSCULAR HEMOGLOBIN CONCENTRATION (G/DL) BY AUTOMATED 33.8 g/dL Normal 32.0-35.0 [facility] Comment on above: Performed By: #### L [id number] ####[facility] ([facility])[address] [place] [address] Hematocrit (Bld) [Volume fraction] 36.4 % Normal 36.0-48.0 [facility] Comment on above: Performed By: #### L [id number] ####[facility] ([facility])[address] [place] [address] Hemoglobin (Bld) [Mass/Vol] 12.3 g/dL Normal 12.0-15.0 [facility] Comment on above: Performed By: #### L [id number] ####[facility] ([facility])[address] [place] [address] MCH (RBC) [Entitic mass] 31.9 pg Normal 27.0-33.0 [facility] Comment on above: Performed By: #### L [id number] ####[facility] ([facility])[address] [place] [address] MCV (RBC) [Entitic vol] 94.5 fL Normal 82.0-98.0 [facility] Comment on above: Performed By: #### L [id number] ####[facility] ([facility])[address] [place] [address] NRBC (PER 100 WBCS) BY AUTOMATED COUNT 0.0 % Normal 0.0-0.0 [facility] Comment on above: Performed By: #### L [id number] ####[facility] ([facility])[address] [place] [address] PLATELETS (10*3/UL) IN BLOOD AUTOMATED COUNT 274 10*3/uL Normal 150-400 [facility] Comment on above: Performed By: #### L [id number] ####[facility] ([facility])[address] [place] [address] RBC (Bld) [#/Vol] 3.85 10*6/uL Normal 3.80-5.00 [facility] Comment on above: Performed By: #### L [id number] ####[facility] ([facility])[address] [place] [address] WBC (Bld) [#/Vol] 4.30 10*3/uL Normal 4.00-10.60 [facility] Comment on above: Performed By: #### L [id number] ####[facility] ([facility])[address] [place] [address] CKon 12-25-2022 CREATINE KINASE (U/L) IN SER/PLAS 32.0 U/L Normal 30.0-223.0 [facility] Comment on above: Performed By: #### L [id number] ####[facility] ([facility])[address] [place] [address] Follow-Upon 12-25-2022 Follow-Up Normal [facility] HEPATIC FUNCTION PANELon Albumin [Mass/Vol] 4.6 g/dL Normal 3.5-5.7 [facility] Comment on above: Performed By: #### L [id number] ####[facility] ([facility])[address] [place] [address] ALP [Catalytic activity/Vol] 63 U/L Normal 34-104 [facility] Comment on above: Performed By: #### L [id number] ####[facility] ([facility])[address] [place] [address] ALT [Catalytic activity/Vol] 25 U/L Normal 7-52 [facility] Comment on above: Performed By: #### L [id number] ####[facility] ([facility])[address] [place] [address] AST [Catalytic activity/Vol] 19 U/L Normal 13-39 [facility] Comment on above: Performed By: #### L [id number] ####[facility] ([facility])[address] [place] [address] Bilirubin [Mass/Vol] 0.4 mg/dL Normal 0.3-1.[address] [facility] Comment on above: Performed By: #### L [id number] ####[facility] ([facility])[address] [place] [address] Magnesium [Mass/Vol] 0.1 mg/dL Normal 0-0.[address] [facility] Comment on above: Performed By: #### L [id number] ####[facility] ([facility])[address] [place] [address] Protein [Mass/Vol] 7.2 g/dL Normal 6.0-8.3 [facility] Comment on above: Performed By: #### L [id number] ####[facility] ([facility])[address] [place] [address] Labon 12-25-2022 Lab Normal [facility] MAGNESIUMon 12-25-2022 Magnesium [Mass/Vol] 1.7 mg/dL Low 1.9-2.[address] [facility] Comment on above: Performed By: #### L [id number] ####[facility] ([facility])[address] [place] [address] MANUAL DIFFERENTIALon 2022 BASOPHILS (10*3/UL) IN BLOOD BY CALCULATION 0.04 10*3/uL Normal 0.00-0.20 [facility] Comment on above: Performed By: #### L [id number] ####[facility] ([facility])[address] [place] [address] BASOPHILS/100 LEUKOCYTES IN BLOOD BY AUTOMATED COUNT 1.0 % Normal 0.0-1.0 [facility] Comment on above: Result Comment: Libby ected result: Previously reported as 0.9 % (reference range: 0.0-1.0 %) on 12/25/2022 at 0831 EDT. Performed By: #### L [id number] ####[facility] ([facility])[address] [place] [address] EOSINOPHILS (10*3/UL) IN BLOOD BY CALCULATION 0.09 10*3/uL Normal 0.00-0.50 [facility] Comment on above: Result Comment: Libby ected result: Previously reported as 0.15 10*3/uL (reference range: 0.00-0.50 10*3/uL) on 12/25/2022 at 0831 EDT. Performed By: #### L [id number] ####[facility] ([facility])[address] [place] [address] EOSINOPHILS/100 LEUKOCYTES IN BLOOD BY AUTOMATED COUNT 2.0 % Normal 0.0-6.0 [facility] Comment on above: Result Comment: Libby ected result: Previously reported as 3.5 % (reference range: 0.0-6.0 %) on 12/25/2022 at 0831 EDT. Performed By: #### L [id number] ####[facility] ([facility])[address] [place] [address] LYMPHOCYTES (10*3/UL) IN BLOOD BY CALCULATION 0.65 10*3/uL Low 1.20-4.00 [facility] Comment on above: Result Comment: Libby ected result: Previously reported as 0.69 10*3/uL (reference range: 1.20-4.00 10*3/uL) on 12/25/2022 at 0831 EDT. Performed By: #### L [id number] ####[facility] ([facility])[address] [place] [address] LYMPHOCYTES/100 LEUKOCYTES IN BLOOD BY AUTOMATED COUNT 15.0 % Low 20.0-45.0 [facility] Comment on above: Result Comment: Libby ected result: Previously reported as 16.0 % (reference range: 20.0-45.0 %) on 12/25/2022 at 0831 EDT. Performed By: #### L [id number] ####[facility] ([facility])[address] [place] [address] METAMYELOCYTES (10*3/UL) IN BLOOD BY CALCULATION 0.04 10*3/uL High 0.00-0.00 [facility] Comment on above: Performed By: #### L [id number] ####[facility] ([facility])[address] [place] [address] METAMYELOCYTES/100 LEUKOCYTES IN BLOOD CELLAVISION 1.0 % High 0.0-0.0 [facility] Comment on above: Performed By: #### L [id number] ####[facility] ([facility])[address] [place] [address] MONOCYTES (10*3/UL) IN BLOOD BY CALCUATION 0.04 10*3/uL Low 0.10-1.00 [facility] Comment on above: Result Comment: Libby ected result: Previously reported as 0.12 10*3/uL (reference range: 0.10-1.00 10*3/uL) on 12/25/2022 at 0831 EDT. Performed By: #### L [id number] ####[facility] ([facility])[address] [place] [address] MONOCYTES/100 LEUKOCYTES IN BLOOD BY AUTOMATED COUNT 1.0 % Low 5.0-12.0 [facility] Comment on above: Result Comment: Libby ected result: Previously reported as 2.8 % (reference range: 5.0-12.0 %) on 12/25/2022 at 0831 EDT. Performed By: #### L [id number] ####[facility] ([facility])[address] [place] [address] NEUTROPHILS (10*3/UL) IN BLOOD BY CALCULATION 3.4 10*3/uL Normal 1.6-7.6 [facility] Comment on above: Result Comment: Libby ected result: Previously reported as 2.9 10*3/uL (reference range: 1.6-7.6 10*3/uL) on 12/25/2022 at 0831 EDT. Performed By: #### L [id number] ####[facility] ([facility])[address] [place] [address] NEUTROPHILS/100 LEUKOCYTES IN BLOOD BY AUTOMATED COUNT 80.0 % High 40.0-72.0 [facility] Comment on above: Result Comment: Libby ected result: Previously reported as 67.7 % (reference range: 40.0-72.0 %) on 12/25/2022 at 0831 EDT. Performed By: #### L [id number] ####[facility] ([facility])[address] [place] [address] PLASMA CELLS/100 LEUKOCYTES IN BLOOD 0 % Normal 0-0 [facility] Comment on above: Performed By: #### L [id number] ####[facility] ([facility])[address] [place] [address] PLATELETS GIANT PRESENCE IN BLOOD BY LIGHT MICROSCOPY Present [facility] Comment on above: Performed By: #### L [id number] ####[facility] ([facility])[address] [place] [address] VARIANT LYMPHOCYTES (10*3/UL) IN BLOOD BY CALCULATION 0.00 10*3/uL Normal 0.00-0.00 [facility] Comment on above: Performed By: #### L [id number] ####[facility] ([facility])[address] [place] [address] VARIANT LYMPHOCYTES/100 LEUKOCYTES IN BLOOD CELLAVISION 0.0 % Normal 0.0-0.0 [facility] Comment on above: Performed By: #### L [id number] ####[facility] ([facility])[address] [place] [address] [facility] PROSPERAon 12-25-2022 PROSPERA RESULT Results to be mailed directly to physician's office by reference lab. [facility] Comment on above: Performed By: #### L [id number] ####[facility], PHOSPHORUSon 12-25-2022 Magnesium [Mass/Vol] 2.6 mg/dL Normal 2.5-5.[address] [facility] Comment on above: Performed By: #### L [id number] ####[facility] ([facility])[address] [place] [address] SINGLE ANTIGEN CLASS Ion AB SCREEN COMMENTS No Class I donor spe cific antibody identified [facility] Comment on above: Performed By: #### L [id number] ####[facility] TISSUE TYPING (HISTOTRAC)[address] [place] [address] [place] CLASS I TESTED DATE Normal [facility] Comment on above: Performed By: #### L [id number] ####[facility] TISSUE TYPING (HISTOTRAC)[address] [place] [address] [facility] SIGNED BY Signed by Sree escamilla CHT([facility]) [facility] Kerrick Kleaner Operator Transplant Immunology Normal [facility] Comment on above: Result Comment: Clas s I Antigen Microbeads Performed By: #### L [id number] ####[facility] TISSUE TYPING (HISTOTRAC)[address] [place] [address] [facility] Performed By: #### L [id number] ####[facility] TISSUE TYPING (HISTOTRAC)[address] [place] [address] [facility] SINGLE ANTIGEN CLASS 1 TEST METHOD Class I Single Antigen Normal [facility] Comment on above: Performed By: #### L [id number] ####[facility] TISSUE TYPING (HISTOTRAC)[address] [place] [address] [facility] SINGLE ANTIGEN CLASS IIon AB SCREEN COMMENTS No Class II donor specific antibody identified [facility] Comment on above: Performed By: #### L [id number] ####[facility] TISSUE TYPING (HISTOTRAC)[address] [place] [address] [facility] CLASS II TESTED DATE [id number] [facility] Comment on above: Performed By: #### L [id number] ####[facility] TISSUE TYPING (HISTOTRAC)[address] [place] [address] [facility] SINGLE ANTIGEN CLASS 2 TEST METHOD Class II Single Antigen Normal [facility] Comment on above: Result Comment: Clas s II Antigen Microbeads Performed By: #### L [id number] ####[facility] TISSUE TYPING (HISTOTRAC)[address] [place] [address] [place] TACROLIMUS LEVELon Tacrolimus (Bld) [Mass/Vol] 11.4 ng/mL Normal 5.0-20.0 [facility] Comment on above: Result Comment: The [employer] Tacrolimus assay is a delayed one-step immunoassay for the quantitative determination of tacrolimus in human whole blood using the chemiluminescent microparticle immunoassay (CMIA) technology with flexible assay protocols, referred to as Chemiflex. Performed By: #### L [id number] ####[facility] ([facility])[address] [place] [address] URIC ACIDon 12-25-2022 Magnesium [Mass/Vol] 2.9 mg/dL Normal 2.3-6.[address] [facility] Comment on above: Performed By: #### L [id number] ####[facility] ([facility])[address] [place] [address] BASIC METABOLIC PANELon Anion gap [Moles/Vol] 14 mmol/L Normal 7-20 [facility] Comment on above: Performed By: #### L [id number] ####[facility] ([facility])[address] [place] [address] Calcium [Mass/Vol] 9.2 mg/dL Normal 8.6-10.3 [facility] Comment on above: Performed By: #### L [id number] ####[facility] [place] [address] Chloride [Moles/Vol] 103 mmol/L Normal 98-[address] [facility] Comment on above: Performed By: #### L [id number] ####[facility] [place] [address] CO2 [Moles/Vol] 23 mmol/L Normal 21-31 [facility] Comment on above: Performed By: #### L [id number] ####[facility] ([facility] [place] [address] Creatinine [Mass/Vol] 1.49 mg/dL High 0.60-1.20 [facility] Comment on above: Performed By: #### L [id number] ####[facility] ([facility])[address] [place] [address] GLOMERULAR FILTRATION RATE ML/MIN/1.73 SQ M.PREDICTED 43.3 mL/min/1.73m*2 Low >60.0 [facility] Comment on above: Result Comment: [facility]???s estimated glomerular filtration rate (eGFR) will [...] of individuals. Performed By: #### L [id number] ####[facility] ([facility])[address] [place] [address] Glucose [Mass/Vol] 145 mg/dL High 70-100 [facility] Comment on above: Performed By: #### L [id number] ####[facility] ([facility])[address] [place] [address] Potassium [Moles/Vol] 3.6 mmol/L Normal 3.5-5.1 [facility] Comment on above: Performed By: #### L [id number] ####[facility] ([facility])[address] [place] [address] Sodium [Moles/Vol] 136 mmol/L Normal 136-145 [facility] Comment on above: Performed By: #### L [id number] ####[facility] ([facility])[address] [place] [address] Urea nitrogen [Mass/Vol] 25 mg/dL Normal 7-25 [facility] Comment on above: Performed By: #### L [id number] ####[facility] ([facility])[address] [place] [address] UREA NITROGEN/CREATININE (MASS RATIO) IN SER/PLAS 16.8 Normal [facility] Comment on above: Performed By: #### L [id number] ####[facility] ([facility])[address] [place] [address] CBC WITH AUTO DIFFERENTIALon 12-06-2022 Erythrocyte distribution width (RBC) [Ratio] 14.5 % Normal 11.5-15.0 [facility] Comment on above: Performed By: #### L [id number] ####[facility] ([facility])[address] [place] [address] ERYTHROCYTE MEAN CORPUSCULAR HEMOGLOBIN CONCENTRATION (G/DL) BY AUTOMATED 33.0 g/dL Normal 32.0-35.0 [facility] Comment on above: Performed By: #### L [id number] ####[facility] ([facility])[address] [place] [address] Hematocrit (Bld) [Volume fraction] 34.2 % Low 36.0-48.0 [facility] Comment on above: Performed By: #### L [id number] ####[facility] ([facility])[address] [place] [address] Hemoglobin (Bld) [Mass/Vol] 11.3 g/dL Low 12.0-15.0 [facility] Comment on above: Performed By: #### L [id number] ####[facility] ([facility])[address] [place] [address] MCH (RBC) [Entitic mass] 31.8 pg Normal 27.0-33.0 [facility] Comment on above: Performed By: #### L [id number] ####[facility] ([facility])[address] [place] [address] MCV (RBC) [Entitic vol] 96.3 fL Normal 82.0-98.0 [facility] Comment on above: Performed By: #### L [id number] ####[facility] ([facility])[address] [place] [address] NRBC (PER 100 WBCS) BY AUTOMATED COUNT 0.0 % Normal 0.0-0.0 [facility] Comment on above: Performed By: #### L [id number] ####[facility] ([facility])[address] [place] [address] PLATELETS (10*3/UL) IN BLOOD AUTOMATED COUNT 305 10*3/uL Normal 150-400 [facility] Comment on above: Performed By: #### L [id number] ####[facility] ([facility])[address] [place] [address] RBC (Bld) [#/Vol] 3.55 10*6/uL Low 3.80-5.00 [facility] Comment on above: Performed By: #### L [id number] ####[facility] ([facility])[address] [place] [address] WBC (Bld) [#/Vol] 8.05 10*3/uL Normal 4.00-10.60 [facility] Comment on above: Performed By: #### L [id number] ####[facility] ([facility])[address] [place] [address] HEPATIC FUNCTION PANELon Albumin [Mass/Vol] 4.4 g/dL Normal 3.5-5.7 [facility] Comment on above: Performed By: #### L [id number] ####[facility] ([facility])[address] [place] [address] ALP [Catalytic activity/Vol] 64 U/L Normal 34-104 [facility] Comment on above: Performed By: #### L [id number] ####[facility] ([facility])[address] [place] [address] ALT [Catalytic activity/Vol] 17 U/L Normal 7-52 [facility] Comment on above: Performed By: #### L [id number] ####[facility] ([facility])[address] [place] [address] AST [Catalytic activity/Vol] 16 U/L Normal 13-39 [facility] Comment on above: Performed By: #### L [id number] ####[facility] ([facility])[address] [place] [address] Bilirubin [Mass/Vol] 0.5 mg/dL Normal 0.3-1.[address] [facility] Comment on above: Performed By: #### L [id number] ####[facility] ([facility])[address] [place] [address] Magnesium [Mass/Vol] 0.1 mg/dL Normal 0-0.[address] [facility] Comment on above: Performed By: #### L [id number] ####[facility] ([facility])[address] [place] [address] Protein [Mass/Vol] 6.8 g/dL Normal 6.0-8.3 [facility] Comment on above: Performed By: #### L [id number] ####[facility] ([facility])[address] [place] [address] Labon 12-06-2022 Lab Normal [facility] MAGNESIUMon 12-06-2022 Magnesium [Mass/Vol] 1.7 mg/dL Low 1.9-2.[address] [facility] Comment on above: Performed By: #### L [id number] ####[facility] ([facility])[address] [place] [address] MANUAL DIFFERENTIALon 2022 BASOPHILS (10*3/UL) IN BLOOD BY CALCULATION 0.16 10*3/uL Normal [facility] Comment on above: Performed By: #### L [id number] ####[facility] ([facility])[address] [place] [address] BASOPHILS/100 LEUKOCYTES IN BLOOD BY AUTOMATED COUNT 2.0 % High 0.0-1.0 [facility] Comment on above: Performed By: #### L [id number] ####[facility] ([facility])[address] [place] [address] EOSINOPHILS (10*3/UL) IN BLOOD BY CALCULATION 0.24 10*3/uL Normal [facility] Comment on above: Performed By: #### L [id number] ####[facility] ([facility])[address] [place] [address] EOSINOPHILS/100 LEUKOCYTES IN BLOOD BY AUTOMATED COUNT 3.0 % Normal 0.0-6.0 [facility] Comment on above: Performed By: #### L [id number] ####[facility] ([facility])[address] [place] [address] LYMPHOCYTES (10*3/UL) IN BLOOD BY CALCULATION 0.96 10*3/uL Low 1.20-4.00 [facility] Comment on above: Performed By: #### L [id number] ####[facility] ([facility])[address] [place] [address] LYMPHOCYTES/100 LEUKOCYTES IN BLOOD BY AUTOMATED COUNT 11.9 % Low 20.0-45.0 [facility] Comment on above: Performed By: #### L [id number] ####[facility] ([facility])[address] [place] [address] METAMYELOCYTES (10*3/UL) IN BLOOD BY CALCULATION 0.56 10*3/uL Normal [facility] Comment on above: Performed By: #### L [id number] ####[facility] ([facility])[address] [place] [address] METAMYELOCYTES/100 LEUKOCYTES IN BLOOD CELLAVISION 6.9 % Normal [facility] Comment on above: Performed By: #### L [id number] ####[facility] ([facility])[address] [place] [address] MONOCYTES (10*3/UL) IN BLOOD BY CALCUATION 0.72 10*3/uL Normal [facility] Comment on above: Performed By: #### L [id number] ####[facility] ([facility])[address] [place] [address] MONOCYTES/100 LEUKOCYTES IN BLOOD BY AUTOMATED COUNT 8.9 % Normal 5.0-12.0 [facility] Comment on above: Performed By: #### L [id number] ####[facility] ([facility])[address] [place] [address] MYELOCYTES (10*3/UL) IN BLOOD BY CALCULATION 0.16 10*3/uL Normal [facility] Comment on above: Performed By: #### L [id number] ####[facility] ([facility])[address] [place] [address] MYELOCYTES/100 LEUKOCYTES IN BLOOD CELLAVISION 2.0 % Normal 0.0-3.0 [facility] Comment on above: Performed By: #### L [id number] ####[facility] ([facility])[address] [place] [address] NEUTROPHILS (10*3/UL) IN BLOOD BY CALCULATION 5.3 10*3/uL Normal 1.6-7.6 [facility] Comment on above: Performed By: #### L [id number] ####[facility] ([facility])[address] [place] [address] NEUTROPHILS/100 LEUKOCYTES IN BLOOD BY AUTOMATED COUNT 65.3 % Normal 40.0-72.0 [facility] Comment on above: Performed By: #### L [id number] ####[facility] ([facility])[address] [place] [address] PLASMA CELLS/100 LEUKOCYTES IN BLOOD 0 % Normal [facility] Comment on above: Performed By: #### L [id number] ####[facility] ([facility])[address] [place] [address] VARIANT LYMPHOCYTES (10*3/UL) IN BLOOD BY CALCULATION 0.00 10*3/uL Normal [facility] Comment on above: Performed By: #### L [id number] ####[facility] ([facility])[address] [place] [address] VARIANT LYMPHOCYTES/100 LEUKOCYTES IN BLOOD CELLAVISION 0.0 % Normal [facility] Comment on above: Performed By: #### L [id number] ####[facility] ([facility])[address] [place] [address] PANEL REACTIVE ANTIBODYon HOLD SPECIMEN Hold for add-ons. Normal [facility] Comment on above: Result Comment: Auto resulted. Performed By: #### L [id number] ####[facility] ([facility])[address] [place] [address] HOLD SPECIMEN Hold for add-ons. Normal [facility] Comment on above: Result Comment: Auto resulted. PHOSPHORUSon 12-06-2022 Magnesium [Mass/Vol] 3.1 mg/dL Normal 2.5-5.[address] [facility] Comment on above: Performed By: #### L [id number] ####[facility] ([facility])[address] [place] [address] SINGLE ANTIGEN CLASS Ion AB SCREEN COMMENTS No Class I donor spe cific antibody identified Normal [facility] Comment on above: Performed By: #### L [id number] ####[facility] TISSUE TYPING (HISTOTRAC)[address] [place], [place] [address] CLASS I TESTED DATE Normal [facility] Comment on above: Performed By: #### L [id number] ####[facility] TISSUE TYPING (HISTOTRAC)[address] SINGLE ANTIGEN CLASS 1 TEST METHOD Class I Single Antigen Normal [facility] Comment on above: Performed By: #### L [id number] ####[facility] TISSUE TYPING (HISTOTRAC)[address] [place], [place] [address] SINGLE ANTIGEN CLASS IIon AB SCREEN COMMENTS No Class II donor specific antibody identified Normal [facility] Comment on above: Performed By: #### L [id number] ####[facility] TISSUE TYPING (HISTOTRAC)[address] [place] [address] [facility] CLASS II TESTED DATE [facility] Comment on above: Performed By: #### L [id number] ####[facility] TISSUE TYPING (HISTOTRAC)[address] SIGNED BY Signed by Sree escamilla C[facility]) PARKER([facility]), Kerrick Kleaner Operator Transplant Immunology [facility] Comment on above: Performed By: #### L [id number] ####[facility] TISSUE TYPING (HISTOTRAC)[address] [place], [place] [address] Result Comment: Clas s I Antigen Microbeads Performed By: #### L [id number] ####[facility] TISSUE TYPING (HISTOTRAC)[address] [place] [address] [facility] SINGLE ANTIGEN CLASS 2 TEST METHOD Class II Single Antigen Normal [facility] Comment on above: Result Comment: Clas s II Antigen Microbeads Performed By: #### L [id number] ####[facility] TISSUE TYPING (HISTOTRAC)[address] [place] [address] [facility] TACROLIMUS LEVELon Tacrolimus (Bld) [Mass/Vol] 6.7 ng/mL Normal 5.0-20.0 [facility] Comment on above: Result Comment: The [employer] Tacrolimus assay is a delayed one-step immunoassay for the quantitative determination of tacrolimus in human whole blood using the chemiluminescent microparticle immunoassay (CMIA) technology with flexible assay protocols, referred to as Chemiflex. Performed By: #### L [id number] ####[facility] ([facility])[address] [place] [address] URIC ACIDon 12-06-2022 Magnesium [Mass/Vol] 4.2 mg/dL Normal 2.3-6.[address] [facility] Comment on above: Performed By: #### L [id number] ####[facility] ([facility])[address] [place] [address] BASIC METABOLIC PANELon 11-07 Anion gap [Moles/Vol] 15 mmol/L Normal 7-20 [facility] Comment on above: Performed By: #### L [id number] ####[facility] ([facility])[address] [place] [address] Calcium [Mass/Vol] 9.0 mg/dL Normal 8.6-10.3 [facility] Comment on above: Performed By: #### L [id number] ####[facility] ([facility])[address] [place] [address] Chloride [Moles/Vol] 105 mmol/L Normal 98-[address] [facility] Comment on above: Performed By: #### L [id number] ####[facility] ([facility])[address] [place] [address] CO2 [Moles/Vol] 21 mmol/L Normal 21-31 [facility] Comment on above: Performed By: #### L [id number] ####[facility] ([facility])[address] [place] [address] Creatinine [Mass/Vol] 1.77 mg/dL High 0.60-1.20 [facility] Comment on above: Performed By: #### L [id number] ####[facility] ([facility])[address] [place] [address] GLOMERULAR FILTRATION RATE ML/MIN/1.73 SQ M.PREDICTED 33.7 mL/min/1.73m*2 Low >60.0 [facility] Comment on above: Result Comment: [facility]???s estimated glomerular filtration rate (eGFR) will [...] of individuals. Performed By: #### L [id number] ####[facility] ([facility])[address] [place] [address] Glucose [Mass/Vol] 126 mg/dL High 70-100 [facility] Comment on above: Performed By: #### L [id number] ####[facility] ([facility])[address] [place] [address] Potassium [Moles/Vol] 4.0 mmol/L Normal 3.5-5.1 [facility] Comment on above: Performed By: #### L [id number] ####[facility] ([facility])[address] [place] [address] Sodium [Moles/Vol] 137 mmol/L Normal 136-145 [facility] Comment on above: Performed By: #### L [id number] ####[facility] ([facility])[address] [place] [address] Urea nitrogen [Mass/Vol] 29 mg/dL High 7-25 [facility] Comment on above: Performed By: #### L [id number] ####[facility] ([facility])[address] [place] [address] UREA NITROGEN/CREATININE (MASS RATIO) IN SER/PLAS 16.38 Normal [facility] Comment on above: Performed By: #### L [id number] ####[facility] ([facility])[address] [place] [address] CBC WITH AUTO DIFFERENTIALon 11-29-2022 Erythrocyte distribution width (RBC) [Ratio] 14.6 % Normal 11.5-15.0 [facility] Comment on above: Performed By: #### L [id number] ####[facility] ([facility])[address] [place] [address] ERYTHROCYTE MEAN CORPUSCULAR HEMOGLOBIN CONCENTRATION (G/DL) BY AUTOMATED 33.1 g/dL Normal 32.0-35.0 [facility] Comment on above: Performed By: #### L [id number] ####[facility] ([facility])[address] [place] [address] Hematocrit (Bld) [Volume fraction] 34.4 % Low 36.0-48.0 [facility] Comment on above: Performed By: #### L [id number] ####[facility] ([facility])[address] [place] [address] Hemoglobin (Bld) [Mass/Vol] 11.4 g/dL Low 12.0-15.0 [facility] Comment on above: Performed By: #### L [id number] ####[facility] ([facility])[address] [place] [address] MCH (RBC) [Entitic mass] 32.1 pg Normal 27.0-33.0 [facility] Comment on above: Performed By: #### L [id number] ####[facility] ([facility])[address] [place] [address] MCV (RBC) [Entitic vol] 96.9 fL Normal 82.0-98.0 [facility] Comment on above: Performed By: #### L [id number] ####[facility] ([facility])[address] [place] [address] NRBC (PER 100 WBCS) BY AUTOMATED COUNT 0.0 % Normal 0.0-0.0 [facility] Comment on above: Performed By: #### L [id number] ####[facility] ([facility])[address] [place] [address] PLATELETS (10*3/UL) IN BLOOD AUTOMATED COUNT 276 10*3/uL Normal 150-400 [facility] Comment on above: Performed By: #### L [id number] ####[facility] ([facility])[address] [place] [address] RBC (Bld) [#/Vol] 3.55 10*6/uL Low 3.80-5.00 [facility] Comment on above: Performed By: #### L [id number] ####[facility] ([facility])[address] [place] [address] WBC (Bld) [#/Vol] 9.71 10*3/uL Normal 4.00-10.60 [facility] Comment on above: Performed By: #### L [id number] ####[facility] ([facility])[address] [place] [address] Follow-Upon 11-29-2022 Follow-Up Normal [facility] HEPATIC FUNCTION PANELon Albumin [Mass/Vol] 4.5 g/dL Normal 3.5-5.7 [facility] Comment on above: Performed By: #### L [id number] ####[facility] ([facility])[address] [place] [address] ALP [Catalytic activity/Vol] 71 U/L Normal 34-104 [facility] Comment on above: Performed By: #### L [id number] ####[facility] ([facility])[address] [place] [address] ALT [Catalytic activity/Vol] 20 U/L Normal 7-52 [facility] Comment on above: Performed By: #### L [id number] ####[facility] ([facility])[address] [place] [address] AST [Catalytic activity/Vol] 16 U/L Normal 13-39 [facility] Comment on above: Performed By: #### L [id number] ####[facility] ([facility])[address] [place] [address] Bilirubin [Mass/Vol] 0.4 mg/dL Normal 0.3-1.[address] [facility] Comment on above: Performed By: #### L [id number] ####[facility] ([facility])[address] [place] [address] Magnesium [Mass/Vol] 0.1 mg/dL Normal 0-0.[address] [facility] Comment on above: Performed By: #### L [id number] ####[facility] ([facility])[address] [place] [address] Protein [Mass/Vol] 6.5 g/dL Normal 6.0-8.3 [facility] Comment on above: Performed By: #### L [id number] ####[facility] ([facility])[address] [place] [address] Labon 11-29-2022 Lab Normal [facility] MAGNESIUMon 11-29-2022 Magnesium [Mass/Vol] 1.6 mg/dL Low 1.9-2.[address] [facility] Comment on above: Performed By: #### L [id number] ####[facility] ([facility])[address] [place] [address] MANUAL DIFFERENTIALon 2022 BASOPHILS (10*3/UL) IN BLOOD BY CALCULATION 0.10 10*3/uL Normal [facility] Comment on above: Performed By: #### L [id number] ####[facility] [place] [address] BASOPHILS/100 LEUKOCYTES IN BLOOD BY AUTOMATED COUNT 1.0 % Normal 0.0-1.0 [facility] Comment on above: Performed By: #### L [id number] ####[facility] ([facility])[address] [place] [address] EOSINOPHILS (10*3/UL) IN BLOOD BY CALCULATION 0.19 10*3/uL Normal [facility] Comment on above: Performed By: #### L [id number] ####[facility] ([facility])[address] [place] [address] EOSINOPHILS/100 LEUKOCYTES IN BLOOD BY AUTOMATED COUNT 2.0 % Normal 0.0-6.0 [facility] Comment on above: Performed By: #### L [id number] ####[facility] ([facility])[address] [place] [address] LYMPHOCYTES (10*3/UL) IN BLOOD BY CALCULATION 1.07 10*3/uL Low 1.20-4.00 [facility] Comment on above: Performed By: #### L [id number] ####[facility] ([facility])[address] [place] [address] LYMPHOCYTES/100 LEUKOCYTES IN BLOOD BY AUTOMATED COUNT 11.0 % Low 20.0-45.0 [facility] Comment on above: Performed By: #### L [id number] ####[facility] ([facility])[address] [place] [address] METAMYELOCYTES (10*3/UL) IN BLOOD BY CALCULATION 0.29 10*3/uL Normal [facility] Comment on above: Performed By: #### L [id number] ####[facility] [place] [address] METAMYELOCYTES/100 LEUKOCYTES IN BLOOD CELLAVISION 3.0 % Normal [facility] Comment on above: Performed By: #### L [id number] ####[facility] ([facility])[address] [place] [address] MONOCYTES (10*3/UL) IN BLOOD BY CALCUATION 0.39 10*3/uL Normal [facility] Comment on above: Performed By: #### L [id number] ####[facility] ([facility])[address] [place] [address] MONOCYTES/100 LEUKOCYTES IN BLOOD BY AUTOMATED COUNT 4.0 % Low 5.0-12.0 [facility] Comment on above: Performed By: #### L [id number] ####[facility] ([facility])[address] [place] [address] NEUTROPHILS (10*3/UL) IN BLOOD BY CALCULATION 7.7 10*3/uL High 1.6-7.6 [facility] Comment on above: Performed By: #### L [id number] ####[facility] ([facility])[address] [place] [address] NEUTROPHILS/100 LEUKOCYTES IN BLOOD BY AUTOMATED COUNT 79.0 % High 40.0-72.0 [facility] Comment on above: Performed By: #### L [id number] ####[facility] ([facility])[address] [place] [address] PLASMA CELLS/100 LEUKOCYTES IN BLOOD 0 % Normal [facility] Comment on above: Performed By: #### L [id number] ####[facility] ([facility])[address] [place] [address] PLATELETS GIANT PRESENCE IN BLOOD BY LIGHT MICROSCOPY Present Normal [facility] Comment on above: Performed By: #### L [id number] ####[facility] ([facility])[address] [place] [address] VARIANT LYMPHOCYTES (10*3/UL) IN BLOOD BY CALCULATION 0.00 10*3/uL Normal [facility] Comment on above: Performed By: #### L [id number] ####[facility] ([facility])[address] [place] [address] VARIANT LYMPHOCYTES/100 LEUKOCYTES IN BLOOD CELLAVISION 0.0 % Normal [facility] Comment on above: Performed By: #### L [id number] ####[facility] ([facility])[address] [place] [address] PHOSPHORUSon 11-29-2022 Magnesium [Mass/Vol] 3.1 mg/dL Normal 2.5-5.[address] [facility] Comment on above: Performed By: #### L [id number] ####[facility] ([facility])[address] [place] [address] TACROLIMUS LEVELon Tacrolimus (Bld) [Mass/Vol] 7.0 ng/mL Normal 5.0-20.0 [facility] Comment on above: Result Comment: The [employer] Tacrolimus assay is a delayed one-step immunoassay for the quantitative determination of tacrolimus in human whole blood using the chemiluminescent microparticle immunoassay (CMIA) technology with flexible assay protocols, referred to as Chemiflex. Performed By: #### L [id number] ####[facility] ([facility])[address] [place] [address] URIC ACIDon 11-29-2022 Magnesium [Mass/Vol] 3.2 mg/dL Normal 2.3-6.[address] [facility] Comment on above: Performed By: #### L [id number] ####[facility] ([facility])[address] [place] [address] Orders Onlyon 11-25-2022 Orders Only [facility] 36on 11-22-2022 36 Patient called into the office stating she needs clearance from the Apparel Sales Associate/Tx surgeon to get her teeth cleaned. Please advise. Load Out Worker is not sure if there is a time frame of how long the patient should wait to have dental work after tx. [facility] 36on 11-19-2022 36 Patient called into the office requesting to have her Bactrim sent to a local pharmacy since her speciality pharmacy is out of stock. Load Out Worker [facility] local [facility] BASIC METABOLIC PANELon 11-06 Anion gap [Moles/Vol] 12 mmol/L Normal 7-20 [facility] Comment on above: Performed By: #### L [id number] ####[facility] ([facility])[address] [place] [address] Calcium [Mass/Vol] 9.3 mg/dL Normal 8.6-10.3 [facility] Comment on above: Performed By: #### L [id number] ####[facility] ([facility])[address] [place] [address] Chloride [Moles/Vol] 103 mmol/L Normal 98-[address] [facility] Comment on above: Performed By: #### L [id number] ####[facility] ([facility])[address] [place] [address] CO2 [Moles/Vol] 23 mmol/L Normal 21-31 [facility] Comment on above: Performed By: #### L [id number] ####[facility] ([facility])[address] [place] [address] Creatinine [Mass/Vol] 1.45 mg/dL High 0.60-1.20 [facility] Comment on above: Performed By: #### L [id number] ####[facility] ([facility])[address] [place] [address] GLOMERULAR FILTRATION RATE ML/MIN/1.73 SQ M.PREDICTED 43.2 mL/min/1.73m*2 Low >60.0 [facility] Comment on above: Result Comment: [facility]???s estimated glomerular filtration rate (eGFR) will [...] of individuals. Performed By: #### L [id number] ####[facility] ([facility])[address] [place] [address] Glucose [Mass/Vol] 137 mg/dL High 70-100 [facility] Comment on above: Performed By: #### L [id number] ####[facility] ([facility])[address] [place] [address] Potassium [Moles/Vol] 3.7 mmol/L Normal 3.5-5.1 [facility] Comment on above: Performed By: #### L [id number] ####[facility] ([facility])[address] [place] [address] Sodium [Moles/Vol] 134 mmol/L Low 136-145 [facility] Comment on above: Performed By: #### L [id number] ####[facility] ([facility])[address] [place] [address] Urea nitrogen [Mass/Vol] 23 mg/dL Normal 7-25 [facility] Comment on above: Performed By: #### L [id number] ####[facility] ([facility])[address] [place] [address] UREA NITROGEN/CREATININE (MASS RATIO) IN SER/PLAS 15.86 Normal [facility] Comment on above: Performed By: #### L [id number] ####[facility] ([facility])[address] [place] [address] CBC WITH AUTO DIFFERENTIALon 11-19-2022 Erythrocyte distribution width (RBC) [Ratio] 14.7 % Normal 11.5-15.0 [facility] Comment on above: Performed By: #### L [id number] ####[facility] ([facility])[address] [place] [address] ERYTHROCYTE MEAN CORPUSCULAR HEMOGLOBIN CONCENTRATION (G/DL) BY AUTOMATED 34.0 g/dL Normal 32.0-35.0 [facility] Comment on above: Performed By: #### L [id number] ####[facility] ([facility])[address] [place] [address] Hematocrit (Bld) [Volume fraction] 34.1 % Low 36.0-48.0 [facility] Comment on above: Performed By: #### L [id number] ####[facility] ([facility])[address] [place] [address] Hemoglobin (Bld) [Mass/Vol] 11.6 g/dL Low 12.0-15.0 [facility] Comment on above: Performed By: #### L [id number] ####[facility] ([facility])[address] [place] [address] MCH (RBC) [Entitic mass] 32.1 pg Normal 27.0-33.0 [facility] Comment on above: Performed By: #### L [id number] ####[facility] ([facility])[address] [place] [address] MCV (RBC) [Entitic vol] 94.5 fL Normal 82.0-98.0 [facility] Comment on above: Performed By: #### L [id number] ####[facility] ([facility])[address] [place] [address] NRBC (PER 100 WBCS) BY AUTOMATED COUNT 0.0 % Normal 0.0-0.0 [facility] Comment on above: Performed By: #### L [id number] ####[facility] ([facility])[address] [place] [address] PLATELETS (10*3/UL) IN BLOOD AUTOMATED COUNT 343 10*3/uL Normal 150-400 [facility] Comment on above: Performed By: #### L [id number] ####[facility] ([facility])[address] [place] [address] RBC (Bld) [#/Vol] 3.61 10*6/uL Low 3.80-5.00 [facility] Comment on above: Performed By: #### L [id number] ####[facility] ([facility])[address] [place] [address] WBC (Bld) [#/Vol] 9.64 10*3/uL Normal 4.00-10.60 [facility] Comment on above: Performed By: #### L [id number] ####[facility] ([facility])[address] [place] [address] HEPATIC FUNCTION PANELon Albumin [Mass/Vol] 4.3 g/dL Normal 3.5-5.7 [facility] Comment on above: Performed By: #### L [id number] ####[facility] ([facility])[address] [place] [address] ALP [Catalytic activity/Vol] 75 U/L Normal 34-104 [facility] Comment on above: Performed By: #### L [id number] ####[facility] ([facility])[address] [place] [address] ALT [Catalytic activity/Vol] 16 U/L Normal 7-52 [facility] Comment on above: Performed By: #### L [id number] ####[facility] ([facility])[address] [place] [address] AST [Catalytic activity/Vol] 15 U/L Normal 13-39 [facility] Comment on above: Performed By: #### L [id number] ####[facility] ([facility])[address] [place] [address] Bilirubin [Mass/Vol] 0.4 mg/dL Normal 0.3-1.[address] [facility] Comment on above: Performed By: #### L [id number] ####[facility] ([facility])[address] [place] [address] Magnesium [Mass/Vol] 0.1 mg/dL Normal 0-0.[address] [facility] Comment on above: Performed By: #### L [id number] ####[facility] ([facility])[address] [place] [address] Protein [Mass/Vol] 7.0 g/dL Normal 6.0-8.3 [facility] Comment on above: Performed By: #### L [id number] ####[facility] ([facility])[address] [place] [address] Labon 11-19-2022 Lab Normal [facility] MAGNESIUMon 11-19-2022 Magnesium [Mass/Vol] 1.8 mg/dL Low 1.9-2.[address] [facility] Comment on above: Performed By: #### L [id number] ####[facility] ([facility])[address] [place] [address] MANUAL DIFFERENTIALon 2022 BASOPHILS (10*3/UL) IN BLOOD BY CALCULATION 0.10 10*3/uL Normal [facility] Comment on above: Performed By: #### L [id number] ####[facility] ([facility])[address] [place] [address] BASOPHILS/100 LEUKOCYTES IN BLOOD BY AUTOMATED COUNT 1.0 % Normal 0.0-1.0 [facility] Comment on above: Performed By: #### L [id number] ####[facility] ([facility])[address] [place] [address] EOSINOPHILS (10*3/UL) IN BLOOD BY CALCULATION 0.00 10*3/uL Normal [facility] Comment on above: Performed By: #### L [id number] ####[facility] ([facility])[address] [place] [address] EOSINOPHILS/100 LEUKOCYTES IN BLOOD BY AUTOMATED COUNT 0.0 % Normal 0.0-6.0 [facility] Comment on above: Performed By: #### L [id number] ####[facility] ([facility])[address] [place] [address] LYMPHOCYTES (10*3/UL) IN BLOOD BY CALCULATION 1.18 10*3/uL Low 1.20-4.00 [facility] Comment on above: Performed By: #### L [id number] ####[facility] ([facility])[address] [place] [address] LYMPHOCYTES/100 LEUKOCYTES IN BLOOD BY AUTOMATED COUNT 12.2 % Low 20.0-45.0 [facility] Comment on above: Performed By: #### L [id number] ####[facility] ([facility])[address] [place] [address] METAMYELOCYTES (10*3/UL) IN BLOOD BY CALCULATION 0.30 10*3/uL Normal [facility] Comment on above: Performed By: #### L [id number] ####[facility] ([facility])[address] [place] [address] METAMYELOCYTES/100 LEUKOCYTES IN BLOOD CELLAVISION 3.1 % Normal [facility] Comment on above: Performed By: #### L [id number] ####[facility] ([facility])[address] [place] [address] MONOCYTES (10*3/UL) IN BLOOD BY CALCUATION 0.30 10*3/uL Normal [facility] Comment on above: Performed By: #### L [id number] ####[facility] ([facility])[address] [place] [address] MONOCYTES/100 LEUKOCYTES IN BLOOD BY AUTOMATED COUNT 3.1 % Low 5.0-12.0 [facility] Comment on above: Performed By: #### L [id number] ####[facility] ([facility])[address] [place] [address] NEUTROPHILS (10*3/UL) IN BLOOD BY CALCULATION 7.8 10*3/uL High 1.6-7.6 [facility] Comment on above: Performed By: #### L [id number] ####[facility] ([facility])[address] [place] [address] NEUTROPHILS/100 LEUKOCYTES IN BLOOD BY AUTOMATED COUNT 80.6 % High 40.0-72.0 [facility] Comment on above: Performed By: #### L [id number] ####[facility] ([facility])[address] [place] [address] PLASMA CELLS/100 LEUKOCYTES IN BLOOD 0 % Normal [facility] Comment on above: Performed By: #### L [id number] ####[facility] ([facility])[address] [place] [address] VARIANT LYMPHOCYTES (10*3/UL) IN BLOOD BY CALCULATION 0.00 10*3/uL Normal [facility] Comment on above: Performed By: #### L [id number] ####[facility] ([facility])[address] [place] [address] VARIANT LYMPHOCYTES/100 LEUKOCYTES IN BLOOD CELLAVISION 0.0 % Normal [facility] Comment on above: Performed By: #### L [id number] ####[facility] ([facility])[address] [place] [address] PHOSPHORUSon 11-19-2022 Magnesium [Mass/Vol] 2.9 mg/dL Normal 2.3-6.[address] [facility] Comment on above: Performed By: #### L [id number] ####[facility] ([facility])[address] [place] [address] Performed By: #### L [id number] ####[facility] ([facility])[address] [place] [address] TACROLIMUS LEVELon Tacrolimus (Bld) [Mass/Vol] 11.7 ng/mL Normal 5.0-20.0 [facility] Comment on above: Result Comment: [employer] Tacrolimus assay is a delayed one-step immunoassay for the quantitative determination of tacrolimus in human whole blood using the chemiluminescent microparticle immunoassay (CMIA) technology with flexible assay protocols, referred to as Chemiflex. Performed By: #### L [id number] ####[facility] ([facility])[address] [place] [address] Follow-Upon 11-08-2022 Follow-Up Normal [facility] BASIC METABOLIC PANELon Anion gap [Moles/Vol] 9 mmol/L Normal 7-20 [facility] Comment on above: Performed By: #### L [id number] ####[facility] ([facility])[address] [place] [address] Calcium [Mass/Vol] 9.2 mg/dL Normal 8.6-10.3 [facility] Comment on above: Performed By: #### L [id number] ####[facility] ([facility])[address] [place] [address] Chloride [Moles/Vol] 103 mmol/L Normal 98-[address] [facility] Comment on above: Performed By: #### L [id number] ####[facility] ([facility])[address] [place] [address] CO2 [Moles/Vol] 24 mmol/L Normal 21-31 [facility] Comment on above: Performed By: #### L [id number] ####[facility] ([facility])[address] [place] [address] Creatinine [Mass/Vol] 1.46 mg/dL High 0.60-1.20 [facility] Comment on above: Performed By: #### L [id number] ####[facility] ([facility])[address] [place] [address] GLOMERULAR FILTRATION RATE ML/MIN/1.73 SQ M.PREDICTED 42.9 mL/min/1.73m*2 Low >60.0 [facility] Comment on above: Result Comment: [facility]???s estimated glomerular filtration rate (eGFR) will [...] of individuals. Performed By: #### L [id number] ####[facility] ([facility])[address] [place] [address] Glucose [Mass/Vol] 115 mg/dL High 70-100 [facility] Comment on above: Performed By: #### L [id number] ####[facility] ([facility])[address] [place] [address] Potassium [Moles/Vol] 3.9 mmol/L Normal 3.5-5.1 [facility] Comment on above: Performed By: #### L [id number] ####[facility] ([facility])[address] [place] [address] Sodium [Moles/Vol] 136 mmol/L Normal 136-145 [facility] Comment on above: Performed By: #### L [id number] ####[facility] ([facility])[address] [place] [address] Urea nitrogen [Mass/Vol] 26 mg/dL High 7-25 [facility] Comment on above: Performed By: #### L [id number] ####[facility] ([facility])[address] [place] [address] UREA NITROGEN/CREATININE (MASS RATIO) IN SER/PLAS 17.81 Normal [facility] Comment on above: Performed By: #### L [id number] ####[facility] ([facility])[address] [place] [address] BK VIRUS, PLASMA, QUANTITATI VEon 11-06-2022 BK QUANTITATION Not detected Normal [facility] Comment on above: Result Comment: Meth od: BK virus was measured by quantitative polymerase chain reaction using a fluorescent hydrolysis probe targeting the polyomavirus BK MOLASS[employer] COLORING OPERATOR-1 gene.The lower limit of quantitation of the assay is 500 copies of BK genome per milliliter of plasma or urine, and any detectable BK DNA below that level is reported as: Detected, <500 copies/ml. Serial BK virus measurement can be used to monitor disease activity. (Reference: Gordon chaneyl. J CLIN MICRO 2004; 42:3427-5235).This test was developed and its performance characteristics determined by the [facility]. It has not been approved by the [place] Food and Drug Administration. However, such approval is not required for clinical implementation, and test results have been shown to be clinically useful. This laboratory is CAP accredited and CLIA certified to perform high complexity testing. Performed By: #### L [id number] ####[facility] ([facility])[address] [place] [address] BK QUANTITATION LOG Not detected Normal [facility] Comment on above: Performed By: #### L [id number] ####[facility] ([facility])[address] [place] [address] CBC WITH AUTO DIFFERENTIALon 11-06-2022 Basophils (Bld) [#/Vol] 0.08 10*3/uL Normal 0.00-0.20 [facility] Comment on above: Performed By: #### L [id number] ####[facility] ([facility])[address] [place] [address] Basophils/100 WBC (Bld) 1.0 % Normal 0.0-1.0 [facility] Comment on above: Performed By: #### L [id number] ####[facility] ([facility])[address] [place] [address] Eosinophils (Bld) [#/Vol] 0.10 10*3/uL Normal 0.00-0.50 [facility] Comment on above: Performed By: #### L [id number] ####[facility] ([facility])[address] [place] [address] Eosinophils/100 WBC (Bld) 1.2 % Normal 0.0-6.0 [facility] Comment on above: Performed By: #### L [id number] ####[facility] ([facility])[address] [place] [address] Erythrocyte distribution width (RBC) [Ratio] 14.8 % Normal 11.5-15.0 [facility] Comment on above: Performed By: #### L [id number] ####[facility] ([facility])[address] [place] [address] ERYTHROCYTE MEAN CORPUSCULAR HEMOGLOBIN CONCENTRATION (G/DL) BY AUTOMATED 32.0 g/dL Normal 32.0-35.0 [facility] Comment on above: Performed By: #### L [id number] ####[facility] ([facility])[address] [place] [address] Hematocrit (Bld) [Volume fraction] 32.8 % Low 36.0-48.0 [facility] Comment on above: Performed By: #### L [id number] ####[facility] ([facility])[address] [place] [address] Hemoglobin (Bld) [Mass/Vol] 10.5 g/dL Low 12.0-15.0 [facility] Comment on above: Performed By: #### L [id number] ####[facility] ([facility])[address] [place] [address] Immature granulocytes (Bld) [#/Vol] 0.31 10*3/uL High 0.00-0.20 [facility] Comment on above: Performed By: #### L [id number] ####[facility] ([facility])[address] [place] [address] Immature granulocytes/100 WBC (Bld) 3.7 % High 0.0-1.0 [facility] Comment on above: Performed By: #### L [id number] ####[facility] ([facility])[address] [place] [address] Lymphocytes (Bld) [#/Vol] 0.69 10*3/uL Low 1.20-4.00 [facility] Comment on above: Performed By: #### L [id number] ####[facility] ([facility])[address] [place] [address] Lymphocytes/100 WBC (Bld) 8.2 % Low 20.0-45.0 [facility] Comment on above: Performed By: #### L [id number] ####[facility] [place] [address] MCH (RBC) [Entitic mass] 30.6 pg Normal 27.0-33.0 [facility] Comment on above: Performed By: #### L [id number] ####[facility] ([facility])[address] [place] [address] MCV (RBC) [Entitic vol] 95.6 fL Normal 82.0-98.0 [facility] Comment on above: Performed By: #### L [id number] ####[facility] ([facility])[address] [place] [address] Monocytes (Bld) [#/Vol] 0.31 10*3/uL Normal 0.10-1.00 [facility] Comment on above: Performed By: #### L [id number] ####[facility] ([facility])[address] [place] [address] Monocytes/100 WBC (Bld) 3.7 % Low 5.0-12.0 [facility] Comment on above: Performed By: #### L [id number] ####[facility] ([facility])[address] [place] [address] Neutrophils (Bld) [#/Vol] 6.91 10*3/uL Normal 1.60-7.60 [facility] Comment on above: Performed By: #### L [id number] ####[facility] ([facility])[address] [place] [address] Neutrophils/100 WBC (Bld) 82.2 % High 40.0-72.0 [facility] Comment on above: Performed By: #### L [id number] ####[facility] ([facility])[address] [place] [address] NRBC (PER 100 WBCS) BY AUTOMATED COUNT 0.0 % Normal 0.0-0.0 [facility] Comment on above: Performed By: #### L [id number] ####[facility] ([facility])[address] [place] [address] PLATELETS (10*3/UL) IN BLOOD AUTOMATED COUNT 280 10*3/uL Normal 150-400 [facility] Comment on above: Performed By: #### L [id number] ####[facility] [place] [address] RBC (Bld) [#/Vol] 3.43 10*6/uL Low 3.80-5.00 [facility] Comment on above: Performed By: #### L [id number] ####[facility] (BEAKER)[address] [place] [address] WBC (Bld) [#/Vol] 8.40 10*3/uL Normal 4.00-10.60 [facility] Comment on above: Performed By: #### L [id number] ####[facility] ([facility])[address] [place] [address] CREATININE, URINE, RANDOMon 11-06-2022 Creatinine (U) [Mass/Vol] 62.0 mg/dL Normal 26-299 [facility] Comment on above: Performed By: #### L [id number] ####[facility] ([facility])[address] [place] [address] HEMOGLOBIN A1Con 11-06-2022 Glucose [Mass/Vol] 105.41 mg/dL Normal [facility] Comment on above: Performed By: #### L [id number] ####[facility] ([facility])[address] [place] [address] HbA1c (Bld) [Mass fraction] 5.3 % Normal 4.0-6.0 [facility] Comment on above: Performed By: #### L [id number] ####[facility] ([facility])[address] [place] [address] HEPATIC FUNCTION PANELon Albumin [Mass/Vol] 4.3 g/dL Normal 3.5-5.7 [facility] Comment on above: Performed By: #### L [id number] ####[facility] ([facility])[address] [place] [address] ALP [Catalytic activity/Vol] 83 U/L Normal 34-104 [facility] Comment on above: Performed By: #### L [id number] ####[facility] ([facility])[address] [place] [address] ALT [Catalytic activity/Vol] 15 U/L Normal 7-52 [facility] Comment on above: Performed By: #### L [id number] ####[facility] ([facility])[address] [place] [address] AST [Catalytic activity/Vol] 13 U/L Normal 13-39 [facility] Comment on above: Performed By: #### L [id number] ####[facility] ([facility])[address] [place] [address] Bilirubin [Mass/Vol] 0.4 mg/dL Normal 0.3-1.[address] [facility] Comment on above: Performed By: #### L [id number] ####[facility] [place] [address] Magnesium [Mass/Vol] 0.0 mg/dL Normal 0-0.[address] [facility] Comment on above: Performed By: #### L [id number] ####[facility] ([facility])[address] [place] [address] Protein [Mass/Vol] 6.7 g/dL Normal 6.0-8.3 [facility] Comment on above: Performed By: #### L [id number] ####[facility] ([facility])[address] [place] [address] LIPID PANELon 11-06-2022 CHOL/HDL 4.43 mg/dL Normal [facility] Comment on above: Performed By: #### L [id number] ####[facility] ([facility])[address] [place] [address] Cholesterol [Mass/Vol] 266 mg/dL High 120-200 [facility] Comment on above: Performed By: #### L [id number] ####[facility] ([facility])[address] [place] [address] Magnesium [Mass/Vol] 307 mg/dL High 40-[address] [facility] Comment on above: Result Comment: TRIG LYCERIDE REFERENCE RANGE:20 YEARS AND OLDER CARDIOVASCULAR RISKLESS THAN 150 mg/dL LOW [id number] TO 199 mg/dL BORDERLINE [id number] mg/dL AND GREATER HIGH RISK Performed By: #### L [id number] ####[facility] ([facility]ER)[address] [place] [address] Magnesium [Mass/Vol] 145 mg/dL Normal 0-[address] [facility] Comment on above: Performed By: #### L [id number] ####[facility] ([facility]AKER)[address] [place] [address] Magnesium [Mass/Vol] 60 mg/dL Normal 23-[address] [facility] Comment on above: Performed By: #### L [id number] ####[facility] [address] NON HDL CHOL. (LDL+VLDL) 206 Normal [facility] Comment on above: Performed By: #### L [id number] ####[facility] ([facility])[address] [place] [address] TOTAL VLDL-C 61 mg/dL High 0-40 [facility] Comment on above: Performed By: #### L [id number] ####[facility] ([facility])[address] [place] [address] Labon 11-06-2022 Lab Normal [facility] MAGNESIUMon 11-06-2022 Magnesium [Mass/Vol] 1.7 mg/dL Low 1.9-2.[address] [facility] Comment on above: Performed By: #### L [id number] ####[facility] ([facility])[address] [place] [address] CH[facility]ST PROSPERAon 11-06-2022 PROSPERA RESULT Results to be mailed directly to physician's office by reference lab. Normal [facility] Comment on above: Performed By: #### L [id number] ####[facility], PANEL REACTIVE ANTIBODYon HOLD SPECIMEN Hold for add-ons. Normal [facility] Comment on above: Result Comment: Auto resulted. Performed By: #### L [id number] ####[facility] ([facility])[address] [place] [address] PHOSPHORUSon 11-06-2022 Magnesium [Mass/Vol] 2.9 mg/dL Normal 2.5-5.[address] [facility] Comment on above: Performed By: #### L [id number] ####[facility] ([facility])[address] [place] [address] PROTEIN, URINE, RANDOMon Protein (U) [Mass/Vol] 14.0 mg/dL Normal [facility] Comment on above: Result Comment: Ther e are no established reference values for random urine specimens. Performed By: #### L [id number] ####[facility] (BEAKER)[address] [place] [address] SINGLE ANTIGEN CLASS Ion AB SCREEN COMMENTS No Class I donor spe cific antibody identified Normal [facility] Comment on above: Performed By: #### L [id number] ####[facility] TISSUE TYPING (HISTOTRAC)[address] [place] [address] [place] CLASS I TESTED DATE Normal [facility] Comment on above: Performed By: #### L [id number] ####[facility] TISSUE TYPING (HISTOTRAC)[address] [place] [address] [place] SINGLE ANTIGEN CLASS 1 TEST METHOD Class I Single Antigen Normal [facility] Comment on above: Performed By: #### L [id number] ####[facility] TISSUE TYPING (HISTOTRAC)[address] [place] [address] [facility] SINGLE ANTIGEN CLASS IIon AB SCREEN COMMENTS No Class II donor specific antibody identified Normal [facility] Comment on above: Performed By: #### L [id number] ####[facility] TISSUE TYPING (HISTOTRAC)[address] [place] [address] [place] CLASS II TESTED DATE [facility] Comment on above: Performed By: #### L [id number] ####[facility] TISSUE TYPING (HISTOTRAC)[address] [place] [address] [facility] SIGNED BY Signed by Sree escamilla [facility] MT(ASCP), Kerrick Kleaner Operator Transplant Immunology [facility] Comment on above: Performed By: #### L [id number] ####[facility] TISSUE TYPING (HISTOTRAC)[address] [place] [address] [place] Result Comment: Clas s I Antigen Microbeads Performed By: #### L [id number] ####[facility] TISSUE TYPING (HISTOTRAC)[address] [place] [address] [place] SINGLE ANTIGEN CLASS 2 TEST METHOD Class II Single Antigen Normal [facility] Comment on above: Result Comment: Clas s II Antigen Microbeads Performed By: #### L [id number] ####[facility] TISSUE TYPING (HISTOTRAC)[address] [place] [address] [place] TACROLIMUS LEVELon Tacrolimus (Bld) [Mass/Vol] 8.1 ng/mL Normal 5.0-20.0 [facility] Comment on above: Result Comment: The [employer] Tacrolimus assay is a delayed one-step immunoassay for the quantitative determination of tacrolimus in human whole blood using the chemiluminescent microparticle immunoassay (CMIA) technology with flexible assay protocols, referred to as Chemiflex. Performed By: #### L [id number] ####[facility] ([facility])[address] [place] [address] URIC ACIDon 11-06-2022 Magnesium [Mass/Vol] 3.0 mg/dL Normal 2.3-6.[address] [facility] Comment on above: Performed By: #### L [id number] ####[facility] [place] [address] BASIC METABOLIC PANELon 10-06 Anion gap [Moles/Vol] 9 mmol/L Normal 7-20 [facility] Comment on above: Performed By: #### L [id number] ####[facility] [place] [address] Calcium [Mass/Vol] 9.5 mg/dL Normal 8.6-10.3 [facility] Comment on above: Performed By: #### L [id number] ####[facility] (BEAKER)[address] [place] [address] Chloride [Moles/Vol] 102 mmol/L Normal 98-[address] [facility] Comment on above: Performed By: #### L [id number] ####[facility] (BEAKER)[address] [place] [address] CO2 [Moles/Vol] 25 mmol/L Normal 21-31 [facility] Comment on above: Performed By: #### L [id number] ####[facility] [place] [address] Creatinine [Mass/Vol] 1.54 mg/dL High 0.60-1.20 [facility] Comment on above: Performed By: #### L [id number] ####[facility] ([facility])[address] [place] [address] GLOMERULAR FILTRATION RATE ML/MIN/1.73 SQ M.PREDICTED 40.2 mL/min/1.73m*2 Low >60.0 [facility] Comment on above: Result Comment: The [facility]???s estimated glomerular filtration rate (eGFR) will [...] of individuals. Performed By: #### L [id number] ####[facility] ([facility])[address] [place] [address] Glucose [Mass/Vol] 107 mg/dL High 70-100 [facility] Comment on above: Performed By: #### L [id number] ####[facility] ([facility])[address] [place] [address] Potassium [Moles/Vol] 3.9 mmol/L Normal 3.5-5.1 [facility] Comment on above: Performed By: #### L [id number] ####[facility] ([facility])[address] [place] [address] Sodium [Moles/Vol] 136 mmol/L Normal 136-145 [facility] Comment on above: Performed By: #### L [id number] ####[facility] ([facility])[address] [place] [address] Urea nitrogen [Mass/Vol] 30 mg/dL High 7-25 [facility] Comment on above: Performed By: #### L [id number] ####[facility] [place] [address] UREA NITROGEN/CREATININE (MASS RATIO) IN SER/PLAS 19.48 Normal [facility] Comment on above: Performed By: #### L [id number] ####[facility] ([facility])[address] [place] [address] CBC WITH AUTO DIFFERENTIALon 10-23-2022 Basophils (Bld) [#/Vol] 0.10 10*3/uL Normal 0.00-0.20 [facility] Comment on above: Performed By: #### L [id number] ####[facility] ([facility])[address] [place] [address] Basophils/100 WBC (Bld) 1.1 % High 0.0-1.0 [facility] Comment on above: Performed By: #### L [id number] ####[facility] ([facility])[address] [place] [address] Eosinophils (Bld) [#/Vol] 0.10 10*3/uL Normal 0.00-0.50 [facility] Comment on above: Performed By: #### L [id number] ####[facility] ([facility])[address] [place] [address] Eosinophils/100 WBC (Bld) 1.1 % Normal 0.0-6.0 [facility] Comment on above: Performed By: #### L [id number] ####[facility] ([facility])[address] [place] [address] Erythrocyte distribution width (RBC) [Ratio] 14.3 % Normal 11.5-15.0 [facility] Comment on above: Performed By: #### L [id number] ####[facility] ([facility])[address] [place] [address] ERYTHROCYTE MEAN CORPUSCULAR HEMOGLOBIN CONCENTRATION (G/DL) BY AUTOMATED 32.6 g/dL Normal 32.0-35.0 [facility] Comment on above: Performed By: #### L [id number] ####[facility] (BEAKER)[address] [place] [address] Hematocrit (Bld) [Volume fraction] 32.5 % Low 36.0-48.0 [facility] Comment on above: Performed By: #### L [id number] ####[facility] (BEAKER)[address] [place] [address] Hemoglobin (Bld) [Mass/Vol] 10.6 g/dL Low 12.0-15.0 [facility] Comment on above: Performed By: #### L [id number] ####[facility] (BEAKER)[address] [place] [address] Immature granulocytes (Bld) [#/Vol] 0.35 10*3/uL High 0.00-0.20 [facility] Comment on above: Performed By: #### L [id number] ####[facility] (BEAKER)[address] [place] [address] Immature granulocytes/100 WBC (Bld) 3.9 % High 0.0-1.0 [facility] Comment on above: Performed By: #### L [id number] ####[facility] (BEAKER)[address] [place] [address] Lymphocytes (Bld) [#/Vol] 0.49 10*3/uL Low 1.20-4.00 [facility] Comment on above: Performed By: #### L [id number] ####[facility] (BEAKER)[address] [place] [address] Lymphocytes/100 WBC (Bld) 5.5 % Low 20.0-45.0 [facility] Comment on above: Performed By: #### L [id number] ####[facility] (BEAKER)[address] [place] [address] MCH (RBC) [Entitic mass] 30.5 pg Normal 27.0-33.0 [facility] Comment on above: Performed By: #### L [id number] ####[facility] (BEAKER)[address] [place] [address] MCV (RBC) [Entitic vol] 93.4 fL Normal 82.0-98.0 [facility] Comment on above: Performed By: #### L [id number] ####[facility] (BEAKER)[address] [place] [address] Monocytes (Bld) [#/Vol] 0.56 10*3/uL Normal 0.10-1.00 [facility] Comment on above: Performed By: #### L [id number] ####[facility] (BEAKER)[address] [place] [address] Monocytes/100 WBC (Bld) 6.2 % Normal 5.0-12.0 [facility] Comment on above: Performed By: #### L [id number] ####[facility] (BEAKER)[address] [place] [address] Neutrophils (Bld) [#/Vol] 7.39 10*3/uL Normal 1.60-7.60 [facility] Comment on above: Performed By: #### L [id number] ####[facility] (BEAKER)[address] [place] [address] Neutrophils/100 WBC (Bld) 82.2 % High 40.0-72.0 [facility] Comment on above: Performed By: #### L [id number] ####[facility] (BEAKER)[address] [place] [address] NRBC (PER 100 WBCS) BY AUTOMATED COUNT 0.0 % Normal 0.0-0.0 [facility] Comment on above: Performed By: #### L [id number] ####[facility] (BEAKER)[address] [place] [address] PLATELETS (10*3/UL) IN BLOOD AUTOMATED COUNT 293 10*3/uL Normal 150-400 [facility] Comment on above: Performed By: #### L [id number] ####[facility] (BEAKER)[address] [place] [address] RBC (Bld) [#/Vol] 3.48 10*6/uL Low 3.80-5.00 [facility] Comment on above: Performed By: #### L [id number] ####[facility] ([facility])[address] [place] [address] WBC (Bld) [#/Vol] 8.99 10*3/uL Normal 4.00-10.60 [facility] Comment on above: Performed By: #### L [id number] ####[facility] ([facility])[address] [place] [address] Follow-Upon 10-23-2022 Follow-Up Normal [facility] HCV QUANTITATIVE TMAon 10-23 HCV QUANTITATIVE LOG Not detected Normal [facility] Comment on above: Order Comment: The A ptima HCV Quant Dx assay is a real-time lithographer apprentice-mediated amplification (TMA) test which has a dynamic [...] or blood products. Performed By: #### L [id number] ####[facility] ([facility])[address] [place] [address] HCV TMA INTERP Not detected Normal Not Detected [facility] Comment on above: Order Comment: The A ptima HCV Quant Dx assay is a real-time lithographer apprentice-mediated amplification (TMA) test which has a dynamic [...] or blood products. Performed By: #### L [id number] ####[facility] ([facility])[address] [place] [address] HCV TMA QUANTITATIVE Not detected Normal [facility] Comment on above: Order Comment: The A ptima HCV Quant Dx assay is a real-time lithographer apprentice-mediated amplification (TMA) test which has a dynamic [...] or blood products. Performed By: #### L [id number] ####[facility] ([facility])[address] [place] [address] HEPATIC FUNCTION PANELon Albumin [Mass/Vol] 4.3 g/dL Normal 3.5-5.7 [facility] Comment on above: Performed By: #### L [id number] ####[facility] ([facility])[address] [place] [address] ALP [Catalytic activity/Vol] 90 U/L Normal 34-104 [facility] Comment on above: Performed By: #### L [id number] ####[facility] ([facility])[address] [place] [address] ALT [Catalytic activity/Vol] 14 U/L Normal 7-52 [facility] Comment on above: Performed By: #### L [id number] ####[facility] ([facility])[address] [place] [address] AST [Catalytic activity/Vol] 12 U/L Low 13-39 [facility] Comment on above: Performed By: #### L [id number] ####[facility] ([facility])[address] [place] [address] Bilirubin [Mass/Vol] 0.3 mg/dL Normal 0.3-1.[address] [facility] Comment on above: Performed By: #### L [id number] ####[facility] (BEAKER)[address] [place] [address] Magnesium [Mass/Vol] 0.0 mg/dL Normal 0-0.[address] [facility] Comment on above: Performed By: #### L [id number] ####[facility] (BEAKER)[address] [place] [address] Protein [Mass/Vol] 6.8 g/dL Normal 6.0-8.3 [facility] Comment on above: Performed By: #### L [id number] ####[facility] (BEAKER)[address] [place] [address] HEPATITIS B QUANTITATIVE PCR on 10-23-2022 HBV DNA, QUANT PCR (IU/ML) Not detected Normal [facility] Comment on above: Performed By: #### L [id number] ####[facility] ([facility])[address] [place] [address] HBV DNA, QUANT PCR (LOG IU/ML) Not detected Normal [facility] Comment on above: Result Comment: Perf ormed by [employer],[address] [place] [address] tqh[employer], Kamari Bennett MD, PHD, Lab. Director Performed By: #### L [id number] ####[facility] ([facility])[address] [place] [address] HBV DNA, QUANT PCR INTERP Not detected Normal Not Detected [facility] Comment on above: Result Comment: INTE [...] Tissue-Based Products (HCT/P). Performed By: #### L [id number] ####[facility] ([facility])[address] [place] [address] HIV RNA, QUANTITATIVE, TMAon 10-23-2022 HIV QUANTITATIVE RNA Not detected Normal [facility] Comment on above: Order Comment: The A ptima HIV Quant assay is a real-time lithographer apprentice-mediated amplification (TMA) test which has a dynamic [...] HIV-1 infection. Performed By: #### L [id number] ####[facility] (BEAKER)[address] [place] [address] HIV QUANTITATIVE RNA LOG Not detected Normal [facility] Comment on above: Order Comment: The A [employer]ima HIV Quant assay is a real-time lithographer apprentice-mediated amplification (TMA) test which has a dynamic [...] HIV-1 infection. Performed By: #### L [id number] ####[facility] ([facility])[address] [place] [address] HIV-1 INTERPRETATION Not detected Normal Not Detected [facility] Comment on above: Order Comment: The A [employer] HIV Quant assay is a real-time lithographer apprentice-mediated amplification (TMA) test which has a dynamic [...] HIV-1 infection. Performed By: #### L [id number] ####[facility] ([facility])[address] [place] [address] Labon 10-23-2022 Lab Normal [facility] MAGNESIUMon 10-23-2022 Magnesium [Mass/Vol] 1.8 mg/dL Low 1.9-2.[address] [facility] Comment on above: Performed By: #### L [id number] ####[facility] ([facility])[address] [place] [address] PHOSPHORUSon 10-23-2022 Magnesium [Mass/Vol] 3.1 mg/dL Normal 2.5-5.[address] [facility] Comment on above: Performed By: #### L [id number] ####[facility] ([facility])[address] [place] [address] TACROLIMUS LEVELon Tacrolimus (Bld) [Mass/Vol] 8.1 ng/mL Normal 5.0-20.0 [facility] Comment on above: Result Comment: The [employer] Tacrolimus assay is a delayed one-step immunoassay for the quantitative determination of tacrolimus in human whole blood using the chemiluminescent microparticle immunoassay (CMIA) technology with flexible assay protocols, referred to as Chemiflex. Performed By: #### L [id number] ####[facility] ([facility] [facility])[address] [place] [address] URIC ACIDon 10-23-2022 Magnesium [Mass/Vol] 3.7 mg/dL Normal 2.3-6.[address] [facility] Comment on above: Performed By: #### L [id number] ####[facility] ([facility])[address] [place] [address] URINE CULTURE, ROUTINEon Bacteria identified Cx Nom (U) No growth at 48 hours Normal [facility] Comment on above: Performed By: #### L [id number] ####[facility] ([facility])[address] [place] [address] 36on 10-19-2022 36 Normal [facility] Telephoneon 10-19-2022 Telephone Normal [facility] BASIC METABOLIC PANELon 10-06 Anion gap [Moles/Vol] 13 mmol/L Normal 7-20 [facility] Comment on above: Performed By: #### L [id number] ####[facility] ([facility])[address] [place] [address] Calcium [Mass/Vol] 9.8 mg/dL Normal 8.6-10.3 [facility] Comment on above: Performed By: #### L [id number] ####[facility] ([facility])[address] [place] [address] Chloride [Moles/Vol] 102 mmol/L Normal 98-[address] [facility] Comment on above: Performed By: #### L [id number] ####[facility] ([facility])[address] [place] [address] CO2 [Moles/Vol] 19 mmol/L Low 21-31 [facility] Comment on above: Performed By: #### L [id number] ####[facility] ([facility])[address] [place] [address] Creatinine [Mass/Vol] 2.06 mg/dL High 0.60-1.20 [facility] Comment on above: Performed By: #### L [id number] ####[facility] ([facility])[address] [place] [address] GLOMERULAR FILTRATION RATE ML/MIN/1.73 SQ M.PREDICTED 28.3 mL/min/1.73m*2 Low >60.0 [facility] Comment on above: Result Comment: [facility]???s estimated glomerular filtration rate (eGFR) will [...] of individuals. Performed By: #### L [id number] ####[facility] ([facility])[address] [place] [address] Glucose [Mass/Vol] 129 mg/dL High 70-100 [facility] Comment on above: Performed By: #### L [id number] ####[facility] ([facility])[address] [place] [address] Potassium [Moles/Vol] 3.9 mmol/L Normal 3.5-5.1 [facility] Comment on above: Performed By: #### L [id number] ####[facility] ([facility])[address] [place] [address] Sodium [Moles/Vol] 134 mmol/L Low 136-145 [facility] Comment on above: Performed By: #### L [id number] ####[facility] ([facility])[address] [place] [address] Urea nitrogen [Mass/Vol] 38 mg/dL High 7-25 [facility] Comment on above: Performed By: #### L [id number] ####[facility] [place] [address] UREA NITROGEN/CREATININE (MASS RATIO) IN SER/PLAS 18.45 Normal [facility] Comment on above: Performed By: #### L [id number] ####[facility] [place] [address] CBC WITH AUTO DIFFERENTIALon 10-15-2022 Basophils (Bld) [#/Vol] 0.13 10*3/uL Normal 0.00-0.20 [facility] Comment on above: Performed By: #### L [id number] ####[facility] ([facility])[address] [place] [address] Basophils/100 WBC (Bld) 1.1 % High 0.0-1.0 [facility] Comment on above: Performed By: #### L [id number] ####[facility] ([facility])[address] [place] [address] Eosinophils (Bld) [#/Vol] 0.43 10*3/uL Normal 0.00-0.50 [facility] Comment on above: Performed By: #### L [id number] ####[facility] ([facility])[address] [place] [address] Eosinophils/100 WBC (Bld) 3.7 % Normal 0.0-6.0 [facility] Comment on above: Performed By: #### L [id number] ####[facility] ([facility])[address] [place] [address] Erythrocyte distribution width (RBC) [Ratio] 13.9 % Normal 11.5-15.0 [facility] Comment on above: Performed By: #### L [id number] ####[facility] ([facility])[address] [place] [address] ERYTHROCYTE MEAN CORPUSCULAR HEMOGLOBIN CONCENTRATION (G/DL) BY AUTOMATED 32.8 g/dL Normal 32.0-35.0 [facility] Comment on above: Performed By: #### L [id number] ####[facility] ([facility])[address] [place] [address] Hematocrit (Bld) [Volume fraction] 35.1 % Low 36.0-48.0 [facility] Comment on above: Performed By: #### L [id number] ####[facility] ([facility])[address] [place] [address] Hemoglobin (Bld) [Mass/Vol] 11.5 g/dL Low 12.0-15.0 [facility] Comment on above: Performed By: #### L [id number] ####[facility] ([facility])[address] [place] [address] Immature granulocytes (Bld) [#/Vol] 0.40 10*3/uL High 0.00-0.20 [facility] Comment on above: Performed By: #### L [id number] ####[facility] ([facility])[address] [place] [address] Immature granulocytes/100 WBC (Bld) 3.5 % High 0.0-1.0 [facility] Comment on above: Performed By: #### L [id number] ####[facility] ([facility])[address] [place] [address] Lymphocytes (Bld) [#/Vol] 0.52 10*3/uL Low 1.20-4.00 [facility] Comment on above: Performed By: #### L [id number] ####[facility] ([facility])[address] [place] [address] Lymphocytes/100 WBC (Bld) 4.5 % Low 20.0-45.0 [facility] Comment on above: Performed By: #### L [id number] ####[facility] ([facility])[address] [place] [address] MCH (RBC) [Entitic mass] 30.4 pg Normal 27.0-33.0 [facility] Comment on above: Performed By: #### L [id number] ####[facility] ([facility])[address] [place] [address] MCV (RBC) [Entitic vol] 92.9 fL Normal 82.0-98.0 [facility] Comment on above: Performed By: #### L [id number] ####[facility] ([facility])[address] [place] [address] Monocytes (Bld) [#/Vol] 0.48 10*3/uL Normal 0.10-1.00 [facility] Comment on above: Performed By: #### L [id number] ####[facility] [place] [address] Monocytes/100 WBC (Bld) 4.2 % Low 5.0-12.0 [facility] Comment on above: Performed By: #### L [id number] ####[facility] ([facility])[address] [place] [address] Neutrophils (Bld) [#/Vol] 9.56 10*3/uL High 1.60-7.60 [facility] Comment on above: Performed By: #### L [id number] ####[facility] ([facility])[address] [place] [address] Neutrophils/100 WBC (Bld) 83.0 % High 40.0-72.0 [facility] Comment on above: Performed By: #### L [id number] ####[facility] ([facility])[address] [place] [address] NRBC (PER 100 WBCS) BY AUTOMATED COUNT 0.0 % Normal 0.0-0.0 [facility] Comment on above: Performed By: #### L [id number] ####[facility] ([facility])[address] [place] [address] PLATELETS (10*3/UL) IN BLOOD AUTOMATED COUNT 419 10*3/uL High 150-400 [facility] Comment on above: Performed By: #### L [id number] ####[facility] ([facility])[address] [place] [address] RBC (Bld) [#/Vol] 3.78 10*6/uL Low 3.80-5.00 [facility] Comment on above: Performed By: #### L [id number] ####[facility] ([facility])[address] [place] [address] WBC (Bld) [#/Vol] 11.52 10*3/uL High 4.00-10.[address] [facility] Comment on above: Performed By: #### L [id number] ####[facility] ([facility])[address] [place] [address] CREATININE, URINE, RANDOMon 10-15-2022 Creatinine (U) [Mass/Vol] 82.0 mg/dL Normal 26-299 [facility] Comment on above: Performed By: #### L [id number] ####[facility] ([facility])[address] [place] [address] DEVICE CULTUREon 10-15-2022 Ampicillin [Susc] 1 ug/ml Susceptible [facility] Comment on above: Performed By: #### D EVICE CULTURE ####[facility] ([facility])[address] [place] [address] Vancomycin [Susc] 2 ug/ml Susceptible [facility] Comment on above: Performed By: #### D EVICE CULTURE ####[facility] ([facility])[address] [place] [address] Follow-Upon 10-15-2022 Follow-Up Normal [facility] HEMOGLOBIN A1Con 10-15-2022 Glucose [Mass/Vol] 105.41 mg/dL Normal [facility] Comment on above: Order Comment: NO VA RIANT Performed By: #### L [id number] ####[facility] ([facility])[address] [place] [address] HbA1c (Bld) [Mass fraction] 5.3 % Normal 4.0-6.0 [facility] Comment on above: Order Comment: NO VA RIANT Performed By: #### L [id number] ####[facility] ([facility])[address] [place] [address] HEPATIC FUNCTION PANELon Albumin [Mass/Vol] 4.6 g/dL Normal 3.5-5.7 [facility] Comment on above: Performed By: #### L [id number] ####[facility] ([facility])[address] [place] [address] ALP [Catalytic activity/Vol] 89 U/L Normal 34-104 [facility] Comment on above: Performed By: #### L [id number] ####[facility] ([facility])[address] [place] [address] ALT [Catalytic activity/Vol] 13 U/L Normal 7-52 [facility] Comment on above: Performed By: #### L [id number] ####[facility] ([facility])[address] [place] [address] AST [Catalytic activity/Vol] 12 U/L Low 13-39 [facility] Comment on above: Performed By: #### L [id number] ####[facility] ([facility])[address] [place] [address] Bilirubin [Mass/Vol] 0.4 mg/dL Normal 0.3-1.[address] [facility] Comment on above: Performed By: #### L [id number] ####[facility] ([facility])[address] [place] [address] Magnesium [Mass/Vol] 0.1 mg/dL Normal 0-0.[address] [facility] Comment on above: Performed By: #### L [id number] ####[facility] ([facility])[address] [place] [address] Protein [Mass/Vol] 7.4 g/dL Normal 6.0-8.3 [facility] Comment on above: Performed By: #### L [id number] ####[facility] ([facility])[address] [place] [address] LIPID PANELon 10-15-2022 CHOL/HDL 4.48 mg/dL Normal [facility] Comment on above: Performed By: #### L [id number] ####[facility] ([facility])[address] [place] [address] Cholesterol [Mass/Vol] 291 mg/dL High 120-200 [facility] Comment on above: Performed By: #### L [id number] ####[facility] ([facility])[address] [place] [address] Magnesium [Mass/Vol] 284 mg/dL High 40-[address] [facility] Comment on above: Result Comment: TRIG LYCERIDE REFERENCE RANGE:20 YEARS AND OLDER CARDIOVASCULAR RISKLESS THAN 150 mg/dL LOW [id number] TO 199 mg/dL BORDERLINE [id number] mg/dL AND GREATER HIGH RISK Performed By: #### L [id number] ####[facility] ([facility])[address] [place] [place] [address] Magnesium [Mass/Vol] 169 mg/dL High 0-[address] [facility] Comment on above: Performed By: #### L [id number] ####[facility] ([facility])[address] [place] [address] Magnesium [Mass/Vol] 65 mg/dL Normal 23-[address] [facility] Comment on above: Performed By: #### L [id number] ####[facility] ([facility])[address] [place] [address] NON HDL CHOL. (LDL+VLDL) 226 Normal [facility] Comment on above: Performed By: #### L [id number] ####[facility] ([facility])[address] [place] [address] TOTAL VLDL-C 57 mg/dL High 0-40 [facility] Comment on above: Performed By: #### L [id number] ####[facility] ([facility])[address] [place] [address] Labon 10-15-2022 Lab Normal [facility] MAGNESIUMon 10-15-2022 Magnesium [Mass/Vol] 1.7 mg/dL Low 1.9-2.[address] [facility] Comment on above: Performed By: #### L [id number] ####[facility] ([facility])[address] [place] [address] Orders Onlyon 10-15-2022 Orders Only Normal [facility] PANEL REACTIVE ANTIBODYon HOLD SPECIMEN Hold for add-ons. Normal [facility] Comment on above: Result Comment: Auto resulted. Performed By: #### L [id number] ####[facility] ([facility])[address] [place] [address] PHOSPHORUSon 10-15-2022 Magnesium [Mass/Vol] 3.2 mg/dL Normal 2.5-5.[address] [facility] Comment on above: Performed By: #### L [id number] ####[facility] ([facility])[address] [place] [address] PROTEIN, URINE, RANDOMon Protein (U) [Mass/Vol] 48.1 mg/dL Normal [facility] Comment on above: Result Comment: Ther e are no established reference values for random urine specimens. Performed By: #### L [id number] ####[facility] ([facility])[address] [place] [address] TACROLIMUS LEVELon Tacrolimus (Bld) [Mass/Vol] 5.9 ng/mL Normal 5.0-20.0 [facility] Comment on above: Result Comment: The [employer] Tacrolimus assay is a delayed one-step immunoassay for the quantitative determination of tacrolimus in human whole blood using the chemiluminescent microparticle immunoassay (CMIA) technology with flexible assay protocols, referred to as Chemiflex. Performed By: #### L [id number] ####[facility] [place] [address] URIC ACIDon 10-15-2022 Magnesium [Mass/Vol] 4.2 mg/dL Normal 2.3-6.[address] [facility] Comment on above: Performed By: #### L [id number] ####[facility] ([facility])[address] [place] [address] BASIC METABOLIC PANELon Anion gap [Moles/Vol] 11 mmol/L Normal 7-20 [facility] Comment on above: Performed By: #### L [id number] ####[facility] ([facility])[address] [place] [address] Calcium [Mass/Vol] 9.2 mg/dL Normal 8.6-10.3 [facility] Comment on above: Performed By: #### L [id number] ####[facility] [place] [address] Chloride [Moles/Vol] 104 mmol/L Normal 98-[address] [facility] Comment on above: Performed By: #### L [id number] ####[facility] [place] [address] CO2 [Moles/Vol] 22 mmol/L Normal 21-31 [facility] Comment on above: Performed By: #### L [id number] ####[facility] ([facility])[address] [place] [address] Creatinine [Mass/Vol] 2.44 mg/dL High 0.60-1.20 [facility] Comment on above: Performed By: #### L [id number] ####[facility] ([facility])[address] [place] [address] GLOMERULAR FILTRATION RATE ML/MIN/1.73 SQ M.PREDICTED 23.0 mL/min/1.73m*2 Low >60.0 [facility] Comment on above: Result Comment: [facility]???s estimated glomerular filtration rate (eGFR) will [...] of individuals. Performed By: #### L [id number] ####[facility] [place] [address] Glucose [Mass/Vol] 99 mg/dL Normal 70-100 [facility] Comment on above: Performed By: #### L [id number] ####[facility] [facility] [address] Potassium [Moles/Vol] 4.4 mmol/L Normal 3.5-5.1 [facility] Comment on above: Performed By: #### L [id number] ####[facility] [facility] [address] Sodium [Moles/Vol] 137 mmol/L Normal 136-145 [facility] Comment on above: Performed By: #### L [id number] ####[facility] ([facility])[address] [place] [address] Urea nitrogen [Mass/Vol] 43 mg/dL High 7-25 [facility] Comment on above: Performed By: #### L [id number] ####[facility] ([facility])[address] [place] [address] UREA NITROGEN/CREATININE (MASS RATIO) IN SER/PLAS 17.62 Normal [facility] Comment on above: Performed By: #### L [id number] ####[facility] ([facility])[address] [place] [address] BK VIRUS, PLASMA, QUANTITATI VEon 10-08-2022 BK QUANTITATION Not detected Normal [facility] Comment on above: Result Comment: Meth od: BK virus was measured by quantitative polymerase chain reaction using a fluorescent hydrolysis probe targeting the polyomavirus BK MOLASSES COLORING [employer]PERATOR-1 gene.The lower limit of quantitation of the assay is 500 copies of BK genome per milliliter of plasma or urine, and any detectable BK DNA below that level is reported as: Detected, <500 copies/ml. Serial BK virus measurement can be used to monitor disease activity. (Reference: Gordon chaneyl. J CLIN MICRO 2004; 42:3538-4853).This test was developed and its performance characteristics determined by the [facility]. It has not been approved by the US Food and Drug Administration. However, such approval is not required for clinical implementation, and test results have been shown to be clinically useful. This laboratory is CAP accredited and CLIA certified to perform high complexity testing. Performed By: #### L [id number] ####[facility] ([facility])[address] [place] [address] BK QUANTITATION LOG Not detected [facility] Comment on above: Performed By: #### L [id number] ####[facility] ([facility])[address] [place] [address] CBC WITH AUTO DIFFERENTIALon 10-08-2022 Basophils (Bld) [#/Vol] 0.08 10*3/uL Normal 0.00-0.20 [facility] Comment on above: Performed By: #### L [id number] ####[facility] ([facility])[address] [place] [address] Basophils/100 WBC (Bld) 0.9 % Normal 0.0-1.0 [facility] Comment on above: Performed By: #### L [id number] ####[facility] ([facility])[address] [place] [address] Eosinophils (Bld) [#/Vol] 0.27 10*3/uL Normal 0.00-0.50 [facility] Comment on above: Performed By: #### L [id number] ####[facility] ([facility])[address] [place] [address] Eosinophils/100 WBC (Bld) 3.0 % Normal 0.0-6.0 [facility] Comment on above: Performed By: #### L [id number] ####[facility] ([facility])[address] [place] [address] Erythrocyte distribution width (RBC) [Ratio] 13.8 % Normal 11.5-15.0 [facility] Comment on above: Performed By: #### L [id number] ####[facility] ([facility])[address] [place] [address] ERYTHROCYTE MEAN CORPUSCULAR HEMOGLOBIN CONCENTRATION (G/DL) BY AUTOMATED 31.4 g/dL Low 32.0-35.0 [facility] Comment on above: Performed By: #### L [id number] ####[facility] ([facility])[address] [place] [address] Hematocrit (Bld) [Volume fraction] 33.1 % Low 36.0-48.0 [facility] Comment on above: Performed By: #### L [id number] ####[facility] [place] [address] Hemoglobin (Bld) [Mass/Vol] 10.4 g/dL Low 12.0-15.0 [facility] Comment on above: Performed By: #### L [id number] ####[facility] ([facility])[address] [place] [address] Immature granulocytes (Bld) [#/Vol] 0.09 10*3/uL Normal 0.00-0.20 [facility] Comment on above: Performed By: #### L [id number] ####[facility] ([facility])[address] [place] [address] Immature granulocytes/100 WBC (Bld) 1.0 % Normal 0.0-1.0 [facility] Comment on above: Performed By: #### L [id number] ####[facility] ([facility])[address] [place] [address] Lymphocytes (Bld) [#/Vol] 0.19 10*3/uL Low 1.20-4.00 [facility] Comment on above: Performed By: #### L [id number] ####[facility] ([facility])[address] [place] [address] Lymphocytes/100 WBC (Bld) 2.1 % Low 20.0-45.0 [facility] Comment on above: Performed By: #### L [id number] ####[facility] ([facility])[address] [place] [address] MCH (RBC) [Entitic mass] 30.1 pg Normal 27.0-33.0 [facility] Comment on above: Performed By: #### L [id number] ####[facility] ([facility])[address] [place] [address] MCV (RBC) [Entitic vol] 95.9 fL Normal 82.0-98.0 [facility] Comment on above: Performed By: #### L [id number] ####[facility] ([facility])[address] [place] [address] Monocytes (Bld) [#/Vol] 0.41 10*3/uL Normal 0.10-1.00 [facility] Comment on above: Performed By: #### L [id number] ####[facility] ([facility])[address] [place] [address] Monocytes/100 WBC (Bld) 4.5 % Low 5.0-12.0 [facility] Comment on above: Performed By: #### L [id number] ####[facility] [place] [address] Neutrophils (Bld) [#/Vol] 8.06 10*3/uL High 1.60-7.60 [facility] Comment on above: Performed By: #### L [id number] ####[facility] (BEAKER)[address] [place] [address] Neutrophils/100 WBC (Bld) 88.5 % High 40.0-72.0 [facility] Comment on above: Performed By: #### L [id number] ####[facility] (BEAKER)[address] [place] [address] NRBC (PER 100 WBCS) BY AUTOMATED COUNT 0.0 % Normal 0.0-0.0 [facility] Comment on above: Performed By: #### L [id number] ####[facility] (BEAKER)[address] [place] [address] PLATELETS (10*3/UL) IN BLOOD AUTOMATED COUNT 302 10*3/uL Normal 150-400 [facility] Comment on above: Performed By: #### L [id number] ####[facility] (BEAKER)[address] [place] [address] RBC (Bld) [#/Vol] 3.45 10*6/uL Low 3.80-5.00 [facility] Comment on above: Performed By: #### L [id number] ####[facility] ([facility])[address] [place] [address] WBC (Bld) [#/Vol] 9.10 10*3/uL Normal 4.00-10.60 [facility] Comment on above: Performed By: #### L [id number] ####[facility] ([facility])[address] [place] [address] HEMOGLOBIN A1Con 10-08-2022 Glucose [Mass/Vol] 111.15 mg/dL Normal [facility] Comment on above: Performed By: #### L [id number] ####[facility] ([facility])[address] [place] [address] HbA1c (Bld) [Mass fraction] 5.5 % Normal 4.0-6.0 [facility] Comment on above: Performed By: #### L [id number] ####[facility] ([facility])[address] [place] [address] HEPATIC FUNCTION PANELon Albumin [Mass/Vol] 4.3 g/dL Normal 3.5-5.7 [facility] Comment on above: Performed By: #### L [id number] ####[facility] ([facility])[address] [place] [address] ALP [Catalytic activity/Vol] 77 U/L Normal 34-104 [facility] Comment on above: Performed By: #### L [id number] ####[facility] ([facility])[address] [place] [address] ALT [Catalytic activity/Vol] 13 U/L Normal 7-52 [facility] Comment on above: Performed By: #### L [id number] ####[facility] [place] [address] AST [Catalytic activity/Vol] 12 U/L Low 13-39 [facility] Comment on above: Performed By: #### L [id number] ####[facility] ([facility])[address] [place] [address] Bilirubin [Mass/Vol] 0.3 mg/dL Normal 0.3-1.[address] [facility] Comment on above: Performed By: #### L [id number] ####[facility] ([facility])[address] [place] [address] Magnesium [Mass/Vol] 0.0 mg/dL Normal 0-0.[address] [facility] Comment on above: Performed By: #### L [id number] ####[facility] ([facility])[address] [place] [address] Protein [Mass/Vol] 6.9 g/dL Normal 6.0-8.3 [facility] Comment on above: Performed By: #### L [id number] ####[facility] ([facility])[address] [place] [address] LIPID PANELon 10-08-2022 CHOL/HDL 5.22 mg/dL Normal [facility] Comment on above: Performed By: #### L [id number] ####[facility] ([facility])[address] [place] [address] Cholesterol [Mass/Vol] 256 mg/dL High 120-200 [facility] Comment on above: Performed By: #### L [id number] ####[facility] ([facility])[address] [place] [address] Magnesium [Mass/Vol] 373 mg/dL High 40-[address] [facility] Comment on above: Result Comment: TRIG LYCERIDE REFERENCE RANGE:20 YEARS AND OLDER CARDIOVASCULAR RISKLESS THAN 150 mg/dL LOW [id number] TO 199 mg/dL BORDERLINE [id number] mg/dL AND GREATER HIGH RISK Performed By: #### L [id number] ####[facility] ([facility])[address] [place] [address] Magnesium [Mass/Vol] 132 mg/dL Normal 0-[address] [facility] Comment on above: Performed By: #### L [id number] ####[facility] ([facility])[address] [place] [address] Magnesium [Mass/Vol] 49 mg/dL Normal 23-[address] [facility] Comment on above: Performed By: #### L [id number] ####[facility] ([facility])[address] [place] [address] NON HDL CHOL. (LDL+VLDL) 207 Normal [facility] Comment on above: Performed By: #### L [id number] ####[facility] ([facility])[address] [place] [address] TOTAL VLDL-C 75 mg/dL High 0-40 [facility] Comment on above: Performed By: #### L [id number] ####[facility] ([facility])[address] [place] [address] Labon 10-08-2022 Lab Normal [facility] MAGNESIUMon 10-08-2022 Magnesium [Mass/Vol] 1.7 mg/dL Low 1.9-2.[address] [facility] Comment on above: Performed By: #### L [id number] ####[facility] ([facility])[address] [place] [address] [facility] PROSPERAon 10-08-2022 PROSPERA RESULT Results to be mailed directly to physician's office by reference lab. [facility] Comment on above: Performed By: #### L [id number] ####[facility], PHOSPHORUSon 10-08-2022 Magnesium [Mass/Vol] 4.5 mg/dL Normal 2.5-5.[address] [facility] Comment on above: Performed By: #### L [id number] ####[facility] ([facility])[address] [place] [address] SINGLE ANTIGEN CLASS Ion AB SCREEN COMMENTS No Class I donor spe cific antibody identified Normal [facility] Comment on above: Performed By: #### L [id number] ####[facility] TISSUE TYPING (HISTOTRAC)[address] CLASS I TESTED DATE [id number] Normal [facility] Comment on above: Performed By: #### L [id number] ####[facility] TISSUE TYPING (HISTOTRAC)[address] SINGLE ANTIGEN CLASS 1 TEST METHOD Class I Single Antigen Normal [facility] Comment on above: Performed By: #### L [id number] ####[facility] TISSUE TYPING (HISTOTRAC)[address] SINGLE ANTIGEN CLASS IIon AB SCREEN COMMENTS No Class II donor specific antibody identified Normal [facility] Comment on above: Performed By: #### L [id number] ####[facility] TISSUE TYPING (HISTOTRAC)[address] CLASS II TESTED DATE [id number] [facility] Comment on above: Performed By: #### L [id number] ####[facility] TISSUE TYPING (HISTOTRAC)[address] SIGNED BY Signed by Sree escamilla CHT([facility]) PARKER(ASCP), Kerrick Kleaner Operator Transplant Immunology [facility] Comment on above: Performed By: #### L [id number] ####[facility] TISSUE TYPING (HISTOTRAC)[address] Result Comment: Clas s I Antigen Microbeads Performed By: #### L [id number] ####[facility] TISSUE TYPING (HISTOTRAC)[address] SINGLE ANTIGEN CLASS 2 TEST METHOD Class II Single Antigen Normal [facility] Comment on above: Result Comment: Clas s II Antigen Microbeads Performed By: #### L [id number] ####[facility] TISSUE TYPING (HISTOTRAC)[address] TACROLIMUS LEVELon Tacrolimus (Bld) [Mass/Vol] 5.6 ng/mL Normal 5.0-20.0 [facility] Comment on above: Result Comment: The [employer] Tacrolimus assay is a delayed one-step immunoassay for the quantitative determination of tacrolimus in human whole blood using the chemiluminescent microparticle immunoassay (CMIA) technology with flexible assay protocols, referred to as Chemiflex. Performed By: #### L [id number] ####[facility] (BEAKER)[address] [place] [address] URIC ACIDon 10-08-2022 Magnesium [Mass/Vol] 3.9 mg/dL Normal 2.3-6.[address] [facility] Comment on above: Performed By: #### L [id number] ####[facility] (BEAKER)[address] [place] [address] URINE CULTURE, ROUTINEon Bacteria identified Cx Nom (U) <10,000 CFU/ML No Significant Growth [facility] Comment on above: Performed By: #### L [id number] ####[facility] (BEAKER)[address] [place] [address] 36on 10-07-2022 36 Normal [facility] PTH INTACTon 07-30-2022 PTH, Intact 107 pg/mL Critically high 15-65 [facility] Comment on above: Performed By: #### M JUDIE Snow, RENAL #### [facility] [address] [place] [address] Dr. Hari Palmer FERRITINon 07-29-2022 Ferritin [Mass/Vol] 194.0 ng/mL Critically high 6.2-137.0 [facility] Comment on above: Performed By: #### M JUDIE Snow, RENAL #### [facility] [address] [address] [address] Hari Palmer HEMOGRAM AND PLATELon 2021 Hematocrit (Bld) [Volume fraction] 32.8 % Critically low 36.0-48.0 [facility] Comment on above: Performed By: #### M JUDIE Snow, RENAL #### [facility] [address] [place] [address] Dr. Hari Palmer Hemoglobin (Bld) [Mass/Vol] 10.8 g/dL Critically low 12.0-16.0 [facility] Comment on above: Performed By: #### M G, URIC, RENAL #### [facility] [address] [address] [address] Hari Palmer MCH (RBC) [Entitic mass] 31.7 pg Normal 26.7-34.0 [facility] Comment on above: Performed By: #### M G, URIC, RENAL #### [facility] [address] [place] [address] Dr. Hari Palmer MCHC (RBC) [Mass/Vol] 32.9 g/dL Normal 29.9-35.2 [facility] Comment on above: Performed By: #### M G, URIC, RENAL #### [facility] [address] [place] [address] Dr. Hari Palmer MCV (RBC) [Entitic vol] 96.2 fL Normal 81.0-99.0 [facility] Comment on above: Performed By: #### M G, URIC, RENAL #### [facility] [address] [place] [address] Dr. Hari Palmer PLT 297 103/ul Normal 150-450 [facility] Comment on above: Performed By: #### M G, URIC, RENAL #### [facility] [address] [place] [address] Dr. Hari Palmer RBC 3.41 106/ul Critically low 4.20-5.40 [facility] Comment on above: Performed By: #### M G, URIC, RENAL #### [facility] [address] [place] [address] Dr. Hari Palmer WBC 7.1 103/ul Normal 4.0-11.0 [facility] Comment on above: Performed By: #### M G, URIC, RENAL #### [facility] [address] [place] [address] Dr. Hari Palmer IRON AND TIBCon 07-29-2022 % SATURATION 19.0 % Normal [facility] Comment on above: Performed By: #### M G, URIC, RENAL #### [facility] [address] [place] [address] Dr. Hari Palmer Iron [Mass/Vol] 48.0 ug/dL Critically low 50.0-170.0 [facility] Comment on above: Performed By: #### M G, URIC, RENAL #### [facility] [address] [place] [address] Dr. Hari Palmer TIBC DIRECT 252.0 ug/dL Normal 250.0-450.0 [facility] Comment on above: Performed By: #### M G, URIC, RENAL #### [facility] [address] [place] [address] Dr. Hari Palmer MAGNESIUMon 07-29-2022 Magnesium [Mass/Vol] 2.0 mg/dL Normal 1.8-2.4 [facility] Comment on above: Performed By: #### M G, URIC, RENAL #### [facility] [address] [place] [address] Dr. Hari Palmer RENAL FUNCTION PANELon 07-29 Albumin [Mass/Vol] 3.6 g/dL Normal 3.4-5.0 [facility] Comment on above: Performed By: #### M G, URIC, RENAL #### [facility] [address] [place] [address] Dr. Hari Palmer Calcium [Mass/Vol] 8.7 mg/dL Normal 8.5-10.1 [facility] Comment on above: Performed By: #### M G, URIC, RENAL #### [facility] [address] [place] [address] Dr. Hari Palmer Chloride [Moles/Vol] 104 mmol/L Normal 98-107 [facility] Comment on above: Performed By: #### M G, URIC, RENAL #### [facility] [address] [place] [address] Dr. Hari Palmer CO2 [Moles/Vol] 21.8 mmol/L Normal 21.0-32.0 [facility] Comment on above: Performed By: #### M G, URIC, RENAL #### [facility] [address] [place] [address] Dr. Hari Palmer Creatinine [Mass/Vol] 3.83 mg/dL Critically high 0.55-1.02 [facility] Comment on above: Performed By: #### M G, URIC, RENAL #### [facility] [address] [address] [address] Hari Palmer EGFR-AF CITIZ[place] 15 mL/min/1.73m2 Critically low >=60 [facility] Comment on above: Performed By: #### M G, URIC, RENAL #### [facility] [address] [place] [address] Dr. Hari Palmer EGFR-NON AF CITIZEN [place] 13 mL/min/1.73m2 Critically low >=60 [facility] Comment on above: Performed By: #### M G, URIC, RENAL #### [facility] [address] [place] [address] Dr. Hari Palmer Glucose [Mass/Vol] 108 mg/dL Critically high 74-106 [facility] Comment on above: Performed By: #### M G, URIC, RENAL #### [facility] [address] [place] [address] Dr. Hari Palmer Phosphate [Mass/Vol] 5.4 mg/dL Critically high 2.6-4.7 [facility] Comment on above: Performed By: #### M G, URIC, RENAL #### [facility] [address] [place] [address] Dr. Hari Palmer Potassium [Moles/Vol] 3.9 mmol/L Normal 3.5-5.1 [facility] Comment on above: Performed By: #### M G, URIC, RENAL #### [facility] [address] [place] [address] Dr. Hari Palmer Sodium [Moles/Vol] 137 mmol/L Normal 136-145 [facility] Comment on above: Performed By: #### M G, URIC, RENAL #### [facility] [address] [place] [address] Dr. Hari Palmer Urea nitrogen [Mass/Vol] 47.0 mg/dL Critically high 7.0-18.0 [facility] Comment on above: Performed By: #### M G, URIC, RENAL #### [facility] [address] [place] [address] Dr. Hari Palmer URIC ACID SERUMon 07-29-2022 Urate [Mass/Vol] 6.3 mg/dL Critically high 2.6-6.0 [facility] Comment on above: Performed By: #### M G, URIC, RENAL #### [facility] [address] [address] [address] Hari Palmer URINE T PROTEIN CREAT RATIOo n 07-29-2022 Protein (U) [Mass/Vol] 29.7 mg/dL Critically high <=12.0 [facility] Comment on above: Performed By: #### M Edy, URIC, RENAL #### [facility] [address] [address] [address] Hari Palmer UR PROT CREAT RAT 0.56 Normal [facility] Comment on above: Performed By: #### M Edy, URIC, RENAL #### [facility] [address] [address] [address] Hari Palmer URINE CREAT 53.35 mg/dL Normal 20.00-300.00 [facility] Comment on above: Performed By: #### M Edy, URIC, RENAL #### [facility] [address] [address] [address] Hari Palmer VITAMIN D 25 OHon 07-29-2022 VIT D 25-OH 38.8 ng/mL Normal [facility] Comment on above: Performed By: #### M Edy, URIC, RENAL #### [facility] [address] [address] [address] Hari Palmer VIT D RANGES SEE BELOW Normal [facility] Comment on above: Result Comment: <20 ng/mL Vit D deficient 20 - <30 ng/mL Vit D insufficient 30 - 100 ng/mL Vit D sufficient >100 ng/mL Potential Toxicity Performed By: #### M Edy, URIC, RENAL #### [facility] [address] [address] [address] Hari Palmer Albumin [Mass/volume] in Ser um or PlasmaOrdered By: Stanley Forman on 06-20-2022 Albumin [Mass/Vol] 3.9 g/dL 3.2-5.5 [facility] Basophils Auto (Bld) [#/Vol] Ordered By: Stanley Forman on 06-20-2022 Basophils (Bld) [#/Vol] 0.1 10*3/uL 0.0-0.2 [facility] Basophils/100 WBC Auto (Bld) Ordered By: Stanley Forman on 06-20-2022 Basophils/100 WBC (Bld) 0.7 % . [facility] Blood hemoglobin measurement (mass/volume)Ordered By: Stanley Forman on 06-20-2022 Hemoglobin (Bld) [Mass/Vol] 10.8 g/dL 11.8-15.4 [facility] Blood leukocytes automated c ount (number/volume)Ordered By: Stanley Forman on 06-20-2022 WBC (Bld) [#/Vol] 11.8 10*3/uL 4.5-11.0 [facility] C reactive protein [Mass/vol ume] in Serum or PlasmaOrdered By: Stanley Forman on 06-20-2022 CRP [Mass/Vol] 5.2 mg/dL 0.0-1.0 [facility] Creatinine and Glomerular fi ltration rate.predicted panel (S/P/Bld)Ordered By: Stanley Forman on 06-20-2022 Creatinine [Mass/Vol] 4.49 mg/dL 0.44-1.03 [facility] Eosinophils Auto (Bld) [#/Vo l]Ordered By: Stanley Forman on 06-20-2022 Eosinophils (Bld) [#/Vol] 0.4 10*3/uL 0.0-0.45 [facility] Eosinophils/100 WBC Auto (Bl d)Ordered By: Stanley Forman on 06-20-2022 Eosinophils/100 WBC (Bld) 3.2 % . [facility] Erythrocyte distribution wid th Auto (RBC) [Ratio]Ordered By: Stanley Forman on 06-20-2022 Erythrocyte distribution width (RBC) [Ratio] 14.0 % 11.9-15.3 [facility] Erythrocyte sedimentation ra te by Photometric methodOrdered By: Stanley Forman on 06-20-2022 ESR Photometric method (Bld) [Velocity] 67 mm/hr 0-19 [facility] Estimated glomerular filtrat ion rate (GFR) non- AmericanOrdered By: Stanley Forman on 06-20-2022 GFR/1.73 sq M.predicted among non-blacks MDRD (S/P/Bld) [Vol rate/Area] 11 mL/Min [facility] Globulin Calc (S) [Mass/Vol] Ordered By: Stanley Forman on 06-20-2022 Globulin (S) [Mass/Vol] 3.5 g/dL [facility] Hematocrit Auto (Bld) [Volum e fraction]Ordered By: Stanley Forman on 06-20-2022 Hematocrit (Bld) [Volume fraction] 33.1 % 34.0-46.4 [facility] - Hematology and Cell countsOrdered By: Stanley Forman on 06-20-2022 Nucleated RBC/100 WBC (Bld) [Ratio] 0.0 % 0-0.5 [facility] Lymphocytes Auto (Bld) [#/Vo l]Ordered By: Stanley Forman on 06-20-2022 Lymphocytes (Bld) [#/Vol] 1.5 10*3/uL 1.00-4.8 [facility] Lymphocytes/100 WBC Auto (Bl d)Ordered By: Stanley Forman on 06-20-2022 Lymphocytes/100 WBC (Bld) 12.3 % . [facility] MCH Auto (RBC) [Entitic mass ]Ordered By: Stanley Forman on 06-20-2022 MCH (RBC) [Entitic mass] 31.1 pg 24.7-34.3 [facility] MCHC Auto (RBC) [Mass/Vol]Or dered By: Stanley Forman on 06-20-2022 MCHC (RBC) [Mass/Vol] 32.5 g/dL 32.0-35.0 [facility] MCV Auto (RBC) [Entitic vol] Ordered By: Stanley Forman on 06-20-2022 MCV (RBC) [Entitic vol] 95.6 fL 80-100 [facility] Monocytes Auto (Bld) [#/Vol] Ordered By: Stanley Forman on 06-20-2022 Monocytes (Bld) [#/Vol] 0.5 10*3/uL 0.0-0.8 [facility] Monocytes/100 WBC Auto (Bld) Ordered By: Stanley Forman on 06-20-2022 Monocytes/100 WBC (Bld) 4.1 % . [facility] Neutrophils Auto (Bld) [#/Vo l]Ordered By: Stanley Forman on 06-20-2022 Neutrophils (Bld) [#/Vol] 9.4 10*3/uL 1.8-7.7 [facility] Neutrophils/100 WBC Auto (Bl d)Ordered By: Stanley Forman on 06-20-2022 Neutrophils/100 WBC (Bld) 79.7 % . [facility] No Panel InformationOrdered By: Stanley Forman on 06-20-2022 Estimated GFR () 13 mL/Min [facility] Comment on above: GFR estimated refere nce range: According to KDOQI guidelines, <60 ml/min/1.73m2 is sufficient to diagnose a patient with chronic kidney disease. Pharmacy Creatinine Clearance (Chem 16.48 [facility] Platelet mean volume Auto (B ld) [Entitic vol]Ordered By: Stanley Forman on 06-20-2022 Platelet mean volume (Bld) [Entitic vol] 7.0 fL 6.3-10.7 [facility] Platelets Auto (Bld) [#/Vol] Ordered By: Stanley Forman on 06-20-2022 Platelets (Bld) [#/Vol] 287 10*3/uL 150-450 [facility] Protein [Mass/volume] in Ser um or PlasmaOrdered By: Stanley Forman on 06-20-2022 Protein [Mass/Vol] 7.4 g/dL 6.1-7.9 [facility] RBC Auto (Bld) [#/Vol]Ordere d By: Stanley Forman on 06-20-2022 RBC (Bld) [#/Vol] 3.46 10*6/uL 3.60-5.00 [facility] Serum or plasma alanine cesar otransferase measurement without P-5'-P (enzymatic activiOrdered By: Stanley Forman on 06-20-2022 ALT No additional P-5'-P [Catalytic activity/Vol] 11 U/L 10-60 [facility] Serum or plasma albumin/glob ulin mass ratioOrdered By: Stanley Forman on 06-20-2022 Albumin/Globulin [Mass ratio] 1.1 {ratio} [facility] Serum or plasma alkaline gina sphatase measurement (enzymatic activity/volume)Ordered By: Stanley Forman on 06-20-2022 ALP [Catalytic activity/Vol] 82 U/L 32-92 [facility] Serum or plasma anion gap de terminationOrdered By: Stanley Forman on 06-20-2022 Anion gap [Moles/Vol] 16.2 mmol/L 6.0-15.0 [facility] Serum or plasma aspartate am inotransferase measurement (enzymatic activity/volume)Ordered By: Stanley Forman on 06-20-2022 AST [Catalytic activity/Vol] 15 U/L 10-42 [facility] Serum or plasma calcium ge urement (mass/volume)Ordered By: Stanley Forman on 06-20-2022 Calcium [Mass/Vol] 9.3 mg/dL 8.2-10.2 [facility] Serum or plasma chloride lee surement (moles/volume)Ordered By: Stanley Forman on 06-20-2022 Chloride [Moles/Vol] 103 mmol/L 95-114 [facility] Serum or plasma glucose ge urement (mass/volume)Ordered By: Stanley Forman on 06-20-2022 Glucose [Mass/Vol] 75 mg/dL 70-100 [facility] Comment on above: ADA recommended refe rence rangeRandom Glucose Reference Range is dependent on time and content of last meal. Glucose of more than 200 mg/dL in a nonstressed, ambulatory subject supports the diagnosis of Diabetes Mellitus. Serum or plasma potassium me asurement (moles/volume)Ordered By: Stanley Forman on 06-20-2022 Potassium [Moles/Vol] 4.3 mmol/L 3.5-5.1 [facility] Serum or plasma sodium measu rement (moles/volume)Ordered By: Stanley Forman 06-20-2022 Sodium [Moles/Vol] 135 mmol/L 136-146 [facility] Serum or plasma total biliru bin measurement (mass/volume)Ordered By: Stanley Forman 06-20-2022 Bilirubin [Mass/Vol] 0.3 mg/dL 0.3-1.2 [facility] Serum or plasma total carbon dioxide measurement (moles/volume)Ordered By: Stanley Forman on 06-20-2022 CO2 [Moles/Vol] 20.1 mmol/L 22.0-30.0 [facility] Serum or plasma urea nitroge n measurement (mass/volume)Ordered By: Stanley Forman on 06-20-2022 Urea nitrogen [Mass/Vol] 42 mg/dL 9-23 [facility] COVID-19 Positive/NegativeOr dered By: Jesus Parham on 06-14-2022 SARS-CoV-2 (COVID-19) N gene AMBERLY+probe Ql (Resp) Negative Negative [facility] Comment on above: Testing for SARS-CoV -2 by RT-PCR This test was developed and its performance characteristics determined by [employer] (sezmi) and validated at the [facility]. This test has not been FDA [...] developed and its performance characteristics determined by [employer] (BD) and validated at the [facility]. This test has not been FDA [...] Antigen (CA) 125 10.8 U/mL Normal 0.0-38.1 [facility] Comment on above: Result Comment: [employer] Electrochemiluminescence Immunoassay (ECLIA) . Values obtained with different assay methods or kits cannot be used interchangeably. Results cannot be interpreted as absolute evidence of the presence or absence of malignant disease. Performed By: #### M G, URIC, RENAL #### [facility] [address] [address] [address] Hari Palmer CEAon 06-08-2022 CEA 0.9 ng/mL Normal 0.0-4.7 [facility] Comment on above: Result Comment: Nons mokers <3.9 Smokers <5.6 . [employer] Electrochemiluminescence Immunoassay (ECLIA) . Values obtained with different assay methods or kits cannot be used interchangeably. Results cannot be interpreted as absolute evidence of the presence or absence of malignant disease. Performed By: #### C EA. #### [facility] [address] [address] [address] Hari Palmer Basophils Auto (Bld) [#/Vol] Ordered By: Jesus Parham on 06-05-2022 Basophils (Bld) [#/Vol] 0.0 10*3/uL 0.0-0.2 [facility] Basophils/100 WBC Auto (Bld) Ordered By: Jesus Parham on 06-05-2022 Basophils/100 WBC (Bld) 0.3 % . [facility] Blood hemoglobin measurement (mass/volume)Ordered By: Jesus Parham on 06-05-2022 Hemoglobin (Bld) [Mass/Vol] 12.0 g/dL 11.8-15.4 [facility] Blood leukocytes automated c ount (number/volume)Ordered By: Jesus Parham on 06-05-2022 WBC (Bld) [#/Vol] 8.5 10*3/uL 4.5-11.0 [facility] Creatinine and Glomerular fi ltration rate.predicted panel (S/P/Bld)Ordered By: Jesus Parham on 06-05-2022 Creatinine [Mass/Vol] 3.52 mg/dL 0.44-1.03 [facility] Eosinophils Auto (Bld) [#/Vo l]Ordered By: Jesus Parham on 06-05-2022 Eosinophils (Bld) [#/Vol] 0.2 10*3/uL 0.0-0.45 [facility] Eosinophils/100 WBC Auto (Bl d)Ordered By: Jesus Parham on 06-05-2022 Eosinophils/100 WBC (Bld) 2.7 % . [facility] Erythrocyte distribution wid th Auto (RBC) [Ratio]Ordered By: Jesus Parham on 06-05-2022 Erythrocyte distribution width (RBC) [Ratio] 14.2 % 11.9-15.3 [facility] Estimated glomerular filtrat ion rate (GFR) non- AmericanOrdered By: Jesus Parham on 06-05-2022 GFR/1.73 sq M.predicted among non-blacks MDRD (S/P/Bld) [Vol rate/Area] 14 mL/Min [facility] Hematocrit Auto (Bld) [Volum e fraction]Ordered By: Jesus Parham on 06-05-2022 Hematocrit (Bld) [Volume fraction] 35.8 % 34.0-46.4 [facility] - Hematology and Cell countsOrdered By: Jesus Parham on 06-05-2022 Nucleated RBC/100 WBC (Bld) [Ratio] 0.1 % 0-0.5 [facility] Lymphocytes Auto (Bld) [#/Vo l]Ordered By: Jesus Parham on 06-05-2022 Lymphocytes (Bld) [#/Vol] 1.6 10*3/uL 1.00-4.8 [facility] Lymphocytes/100 WBC Auto (Bl d)Ordered By: Jesus Parham on 06-05-2022 Lymphocytes/100 WBC (Bld) 19.3 % . [facility] MCH Auto (RBC) [Entitic mass ]Ordered By: Jesus Parham on 06-05-2022 MCH (RBC) [Entitic mass] 31.5 pg 24.7-34.3 [facility] MCHC Auto (RBC) [Mass/Vol]Or dered By: Jesus Parham on 06-05-2022 MCHC (RBC) [Mass/Vol] 33.3 g/dL 32.0-35.0 [facility] MCV Auto (RBC) [Entitic vol] Ordered By: Jesus Parham on 06-05-2022 MCV (RBC) [Entitic vol] 94.4 fL 80-100 [facility] Monocytes Auto (Bld) [#/Vol] Ordered By: Jesus Parham on 06-05-2022 Monocytes (Bld) [#/Vol] 0.3 10*3/uL 0.0-0.8 [facility] Monocytes/100 WBC Auto (Bld) Ordered By: Jesus Parham on 06-05-2022 Monocytes/100 WBC (Bld) 3.9 % . [facility] Neutrophils Auto (Bld) [#/Vo l]Ordered By: Jesus Parham on 06-05-2022 Neutrophils (Bld) [#/Vol] 6.2 10*3/uL 1.8-7.7 [facility] Neutrophils/100 WBC Auto (Bl d)Ordered By: Jesus Praham on 06-05-2022 Neutrophils/100 WBC (Bld) 73.8 % . [facility] No Panel InformationOrdered By: Jesus Parham on 06-05-2022 Estimated GFR () 17 mL/Min [facility] Comment on above: GFR estimated refere nce range: According to KDOQI guidelines, <60 ml/min/1.73m2 is sufficient to diagnose a patient with chronic kidney disease. Pharmacy Creatinine Clearance (Chem N/A [facility] Platelet mean volume Auto (B ld) [Entitic vol]Ordered By: Jesus Parham on 06-05-2022 Platelet mean volume (Bld) [Entitic vol] 7.3 fL 6.3-10.7 [facility] Platelets Auto (Bld) [#/Vol] Ordered By: Jesus Parham on 06-05-2022 Platelets (Bld) [#/Vol] 312 10*3/uL 150-450 [facility] RBC Auto (Bld) [#/Vol]Ordere d By: Jesus Parham on 06-05-2022 RBC (Bld) [#/Vol] 3.80 10*6/uL 3.60-5.00 [facility] Serum or plasma anion gap de terminationOrdered By: Jesus Parham on 06-05-2022 Anion gap [Moles/Vol] 15.1 mmol/L 6.0-15.0 [facility] Serum or plasma calcium ge urement (mass/volume)Ordered By: Jesus Parham on 06-05-2022 Calcium [Mass/Vol] 9.5 mg/dL 8.2-10.2 [facility] Serum or plasma chloride lee surement (moles/volume)Ordered By: Jesus Parham on 06-05-2022 Chloride [Moles/Vol] 106 mmol/L 95-114 [facility] Serum or plasma glucose ge urement (mass/volume)Ordered By: Jesus Parham on 06-05-2022 Glucose [Mass/Vol] 91 mg/dL 70-100 [facility] Comment on above: ADA recommended refe [...] on 06-05-2022 Potassium [Moles/Vol] 4.4 mmol/L 3.5-5.1 [facility] Serum or plasma sodium measu rement (moles/volume)Ordered By: Jesus Parham on 06-05-2022 Sodium [Moles/Vol] 137 mmol/L 136-146 [facility] Serum or plasma total carbon dioxide measurement (moles/volume)Ordered By: Jesus Parham on 06-05-2022 CO2 [Moles/Vol] 20.3 mmol/L 22.0-30.0 [facility] Serum or plasma urea nitroge n measurement (mass/volume)Ordered By: Jesus Parham on 06-05-2022 Urea nitrogen [Mass/Vol] 38 mg/dL 9-23 [facility] PTH INTACTon 04-29-2022 PTH, Intact 191 pg/mL Critically high 15-65 [facility] Comment on above: Performed By: #### M Edy URIC, RENAL #### [facility] [address] [address] [address] Hari Palmer VIT D 25-OH LABCORPon 2021 Vitamin D, 25-Hydroxy 33.6 ng/mL Normal 30.0-100.0 [facility] Comment on above: Result Comment: Ning min D deficiency has been defined by the [place] of Medicine and an Endocrine Society practice guideline as a level of serum 25-OH vitamin D less than 20 ng/mL (1,2). The Endocrine Society went on to further define vitamin D insufficiency as a level between 21 and 29 ng/mL (2). 1. IOM ([place] of [employer]). 2010. Dietary reference intakes for calcium and D. [place]: The National Academies Press. 2. Chantel STEINER, Landen BURGOS, Eliseo STEPHENS, et al. Evaluation, treatment, and prevention of vitamin D deficiency: an Endocrine Society clinical practice guideline. JCEM. 2010; 96(7):1911-30. Performed By: #### M Edy URIC, RENAL #### [facility] [address], [place] [address] Dr. Hari Palmer ABO AND RH TYPEon 04-27-2022 ABO and Rh group Nom (Bld) ABO Rh Typing O Rh Positive Normal [facility] Comment on above: Performed By: #### M Edy URIC, RENAL #### [facility] [address], [place] [address] Dr. Hari Palmer FERRITINon 04-27-2022 Ferritin [Mass/Vol] 273.0 ng/mL Critically high 6.2-137.0 [facility] Comment on above: Performed By: #### M G, URIC, RENAL #### [facility] [address] [place] [address] Dr. Hari Palmer HEMOGRAM AND PLATELon 2021 Hematocrit (Bld) [Volume fraction] 33.9 % Critically low 36.0-48.0 [facility] Comment on above: Performed By: #### M G, URIC, RENAL #### [facility] [address] [place] [address] Dr. Hari Palmer Hemoglobin (Bld) [Mass/Vol] 11.4 g/dL Critically low 12.0-16.0 [facility] Comment on above: Performed By: #### M G, URIC, RENAL #### [facility] [address] [place] [address] Dr. Hari Palmer MCH (RBC) [Entitic mass] 31.7 pg Normal 26.7-34.0 [facility] Comment on above: Performed By: #### M G, URIC, RENAL #### [facility] [address] [place] [address] Dr. Hari Palmer MCHC (RBC) [Mass/Vol] 33.6 g/dL Normal 29.9-35.2 [facility] Comment on above: Performed By: #### M G, URIC, RENAL #### [facility] [address] [place] [address] Dr. Hari Palmer MCV (RBC) [Entitic vol] 94.2 fL Normal 81.0-99.0 [facility] Comment on above: Performed By: #### M G, URIC, RENAL #### [facility] [address] [place] [address] Dr. Hari Palmer PLT 333 103/ul Normal 150-450 [facility] Comment on above: Performed By: #### M G, URIC, RENAL #### [facility] [address] [place] [address] Dr. Hari Palmer RBC 3.60 106/ul Critically low 4.20-5.40 [facility] Comment on above: Performed By: #### M G, URIC, RENAL #### [facility] [address] [place] [address] Dr. Hari Palmer WBC 9.7 103/ul Normal 4.0-11.0 [facility] Comment on above: Performed By: #### M G, URIC, RENAL #### [facility] [address] [place] [address] Dr. Hari Palmer IRON AND TIBCon 04-27-2022 % SATURATION 20.1 % Normal [facility] Comment on above: Performed By: #### M G, URIC, RENAL #### [facility] [address] [place] [address] Dr. Hari Palmer Iron [Mass/Vol] 57.0 ug/dL Normal 50.0-170.0 [facility] Comment on above: Performed By: #### M G, URIC, RENAL #### [facility] [address] [place] [address] Dr. Hari Palmer TIBC DIRECT 283.0 ug/dL Normal 250.0-450.0 [facility] Comment on above: Performed By: #### M G, URIC, RENAL #### [facility] [address] [place] [address] Dr. Hari Palmer MAGNESIUMon 04-27-2022 Magnesium [Mass/Vol] 2.1 mg/dL Normal 1.8-2.4 [facility] Comment on above: Performed By: #### R ENAL, URIC, MG #### [facility] [address] [place] [address] Dr. Hari Palmer RENAL FUNCTION PANELon 04-27 Albumin [Mass/Vol] 3.6 g/dL Normal 3.4-5.0 [facility] Comment on above: Performed By: #### R ENAL, URIC, MG #### [facility] [address] [place] [address] Dr. Hari Palmer Calcium [Mass/Vol] 9.0 mg/dL Normal 8.5-10.1 [facility] Comment on above: Performed By: #### R ENAL, URIC, MG #### [facility] [address] [place] [address] Dr. Hari Palmer Chloride [Moles/Vol] 104 mmol/L Normal 98-107 [facility] Comment on above: Performed By: #### R ENAL, URIC, MG #### [facility] [address] [address] [address] Hari Palmer CO2 [Moles/Vol] 23.0 mmol/L Normal 21.0-32.0 [facility] Comment on above: Performed By: #### R ENAL, URIC, MG #### [facility] [address] [address] [address] Hari Palmer Creatinine [Mass/Vol] 3.38 mg/dL Critically high 0.55-1.02 [facility] Comment on above: Performed By: #### R ENAL, URIC, MG #### [facility] [address] [place] [address] Dr. Hari Palmer EGFR-AF CITIZ[place] 18 mL/min/1.73m2 Critically low >=60 [facility] Comment on above: Performed By: #### R ENAL, URIC, MG #### [facility] [address] [place] [address] Dr. Hari Palmer EGFR-NON AF CITIZEN [place] 15 mL/min/1.73m2 Critically low >=60 [facility] Comment on above: Performed By: #### R ENAL, URIC, MG #### [facility] [address] [place] [address] Dr. Hari Palmer Glucose [Mass/Vol] 113 mg/dL Critically high 74-106 [facility] Comment on above: Performed By: #### R ENAL, URIC, MG #### [facility] [address] [place] [address] Dr. Hari Palmer Phosphate [Mass/Vol] 4.4 mg/dL Normal 2.6-4.7 [facility] Comment on above: Performed By: #### R ENAL, URIC, MG #### [facility] [address] [place] [address] Dr. Hari Palmer Potassium [Moles/Vol] 4.0 mmol/L Normal 3.5-5.1 [facility] Comment on above: Performed By: #### R ENAL, URIC, MG #### [facility] [address] [place] [address] Dr. Hari Palmer Sodium [Moles/Vol] 137 mmol/L Normal 136-145 [facility] Comment on above: Performed By: #### R ENAL, URIC, MG #### [facility] [address] [place] [address] Dr. Hari Palmer Urea nitrogen [Mass/Vol] 44.0 mg/dL Critically high 7.0-18.0 [facility] Comment on above: Performed By: #### R ENAL, URIC, MG #### [facility] [address] [place] [address] Dr. Hari Palmer URIC ACID SERUMon 04-27-2022 Urate [Mass/Vol] 6.6 mg/dL Critically high 2.6-6.0 [facility] Comment on above: Performed By: #### R ENAL, URIC, MG #### [facility] [address] [place] [address] Dr. Hari Palmer URINE T PROTEIN CREAT RATIOo n 04-27-2022 Protein (U) [Mass/Vol] 31.4 mg/dL Critically high <=12.0 [facility] Comment on above: Performed By: #### M G, URIC, RENAL #### [facility] [address] [place] [address] Dr. Hari Palmer UR PROT CREAT RAT 0.55 Normal [facility] Comment on above: Performed By: #### M G, URIC, RENAL #### [facility] [address] [place] [address] Dr. Hari Palmer URINE CREAT 57.50 mg/dL Normal 20.00-300.00 [facility] Comment on above: Performed By: #### M G, URIC, RENAL #### [facility] [address] [place] [address] Dr. Hari Palmer ECHOCARDIO M/2D COMPLETEon 0 03-29-2022 ECHOCARDIO M/2D COMPLETE Patient: MANDEEP PURI Exam Date: 03/29/2022 : 1975 Gender:F Ordering : HAIDER FRENCH M.D. Admission #: [id number] Family : Order #: [id number] CLICK HERE TO VIEW EXAM ECHOCARDIOGRAM REPORT [...] Area(A4C): 17.00 cm2 Left Atrium Systolic Volume(A2C): 75755 mm3 Left Atrium Systolic Volume(A4C): 22801 mm3 Mitral Valve MV E to A Ratio: 0.80 Deceleration [place]: 3210 mm/s2 Mitral Valve A-Wave Peak Velocity: [...] M.D. on 04/01/2022 at 12:33 Normal [facility] COVID-19 SOFIAOrdered By: Mary Beth Jones on 03-28-2022 SARS-CoV+SARS-CoV-2 (COVID-19) Ag IA.rapid Ql (Resp) Negative Negative [facility] Comment on above: This is a duplicate Ada SARS Antigen (GLORIA) result to be used for statistical tracking purpose only. No Panel InformationOrdered By: Shabbir Jones on 03-28-2022 SARS Antigen (LFIA) [facility] BLOOD TYPE AND RHon 02-13-20 ABO INTERPRETATION O Normal [facility] Comment on above: Performed By: #### 3 1397, 08608, 23806, 52361, 46629 #### [facility] [address] [place] [address], [place] RH INTERPRETATION Positive Normal [facility] Comment on above: Performed By: #### 3 1397, 33215, 56458, 87893, 15822 #### [facility] [address] [place] [address], [place] BNP (B-TYPE NATRIURETIC PEPT JOEL)on 02-12-2022 Natriuretic peptide B (Bld) [Mass/Vol] 10 pg/mL Normal 0-100 [facility] Comment on above: Result Comment: Give n the appropriate clinical setting a BNP result of >100 pg/mL indicates congestive heart failure. Performed By: #### 8 5123, 71764 #### [facility] [address] [facility]. [address] CBC W/DIFFon 02-12-2022 ABS IMM GRANS 0.2 10*3/uL Normal 0.0-0.2 [facility] Comment on above: Performed By: #### 3 1397, 26503, 85337, 88664, 94166 #### [facility] [address] [facility]. [address] ABS NEUTROPHILS 7.8 10*3/uL High 1.6-7.6 [facility] Comment on above: Performed By: #### 3 1397, 47238, 12851, 38679, 10525 #### [facility] [address] [facility] [place] [address], [facility] Basophils (Bld) [#/Vol] 0.1 10*3/uL Normal 0.0-0.2 [facility] Comment on above: Performed By: #### 3 1397, 15330, 35406, 73681, 25679 #### [facility] [address] [facility] [place] [address], [facility] Basophils/100 WBC (Bld) 0.6 % Normal 0.0-1.0 [facility] Comment on above: Performed By: #### 3 1397, 25444, 25683, 52493, 52764 #### [facility] [address] [facility] [place] [address], [facility] Eosinophils (Bld) [#/Vol] 0.3 10*3/uL Normal 0.0-0.5 [facility] Comment on above: Performed By: #### 3 1397, 24216, 36420, 84287, 12550 #### [facility] [address] [place] [address], [facility] Eosinophils/100 WBC (Bld) 2.5 % Normal 0.0-6.0 [facility] Comment on above: Performed By: #### 3 1397, 08570, 75220, 85731, 59291 #### [facility] [address] [place] [address], [facility] Erythrocyte distribution width (RBC) [Ratio] 13.6 % Normal 11.5-15.0 [facility] Comment on above: Performed By: #### 3 1397, 97864, 87919, 18761, 15441 #### [facility] [address] [facility] [address] Hematocrit (Bld) [Volume fraction] 34.5 % Low 36.0-45.0 [facility] Comment on above: Performed By: #### 3 1397, 55724, 92498, 86645, 28414 #### [facility] [address] Hemoglobin (Bld) [Mass/Vol] 11.3 g/dL Low 12.0-15.0 [facility] Comment on above: Performed By: #### 3 1397, 51878, 83040, 36195, 07912 #### [facility] [address] [facility] [place] [address], [facility] IMMATURE GRANS 1.4 % High 0.0-1.0 [facility] Comment on above: Performed By: #### 3 1397, 97504, 36156, 66118, 23999 #### [facility] [address] [place] [address], [facility] Lymphocytes (Bld) [#/Vol] 2.0 10*3/uL Normal 1.2-4.0 [facility] Comment on above: Performed By: #### 3 1397, 47590, 21678, 44016, 26923 #### [facility] [address] Lymphocytes/100 WBC (Bld) 18.6 % Low 20.0-45.0 [facility] Comment on above: Performed By: #### 3 1397, 58354, 37565, 49968, 00753 #### [facility] [address] [place] [address], [facility] MCH (RBC) [Entitic mass] 31.3 pg Normal 27.0-33.0 [facility] Comment on above: Performed By: #### 3 1397, 76191, 38701, 02431, 85495 #### [facility] [address] [facility] MCHC (RBC) [Mass/Vol] 32.8 g/dL Normal 32.0-35.0 [facility] Comment on above: Performed By: #### 3 1397, 12358, 62135, 64436, 88878 #### [facility] [address] MCV (RBC) [Entitic vol] 95.6 fL Normal 82.0-98.0 [facility] Comment on above: Performed By: #### 3 1397, 84706, 03265, 11655, 33226 #### [facility] [address] [facility] [place] [address], [facility] Monocytes (Bld) [#/Vol] 0.5 10*3/uL Normal 0.1-1.0 [facility] Comment on above: Performed By: #### 3 1397, 76014, 23416, 11441, 08559 #### [facility] [address] [facility] [address], [facility] MONOS 4.9 % Low 5.0-12.0 [facility] Comment on above: Performed By: #### 3 1397, 06144, 40212, 63718, 09380 #### [facility] [address] [place] [address], [place] Neutrophils/100 WBC (Bld) 72.0 % Normal 40.0-72.0 [facility] Comment on above: Performed By: #### 3 1397, 78399, 24216, 46325, 00573 #### [facility] [address] [place] [address], [facility] Nucleated RBC/100 WBC (Bld) [Ratio] 0 % Normal 0-0 [facility] Comment on above: Performed By: #### 3 1397, 20935, 90396, 61409, 47096 #### [facility] [address] [facility] [place] [address], [facility] PLAT CNT 315 10*3/uL Normal 150-400 [facility] Comment on above: Performed By: #### 3 1397, 85029, 63862, 21885, 10631 #### [facility] [address] [facility] [place] [address], [facility] RBC (Bld) [#/Vol] 3.61 10*6/uL Low 3.80-5.00 [facility] Comment on above: Performed By: #### 3 1397, 18770, 77894, 40024, 86479 #### [facility] [address] [facility] [place] [address], [facility] WBC (Bld) [#/Vol] 10.78 10*3/uL High 4.00-10.60 [facility] Comment on above: Performed By: #### 3 1397, 99058, 12555, 60877, 54553 #### [facility] [address] [facility] [place] [address], [facility] CHEST AND LATERALon 02-13-20 CHEST AND LATERAL [facility] Department of Radiology [address] [place] [id number] Patient Name: MANDEEP PURI : 1975 Sex: [...] pathology. Electronically signed: Royal Dominguez. Transcribed by: [email or web address], User Resident: Electronically Signed by: ROYAL DOMINGUEZ @ 02/13/2022 11:48 AM Normal [facility] CMV IGG BLOODon 02-12-2022 CMV IGG 3.13 Normal [facility] Comment on above: Result Comment: NORM AL RANGES: < OR = 0.9O NEGATIVE ; NO DETECTABLE IgG ANTIBODY TO CMV 0.91 - 1.09 EQUIVOCAL; REPEAT TESTING SUGGESTED > OR = 1.10 POSITIVE ; INDICATES PRESENCE OF DETECTABLE IgG ANTIBODY TO CMV Performed By: #### 3 1397, 29842, 97224, 62029, 35669 #### [facility] [address] [place] [address], [facility] COMP METABOLIC PANELon 02-12 Albumin [Mass/Vol] 4.5 g/dL Normal 3.5-5.7 [facility] Comment on above: Performed By: #### 2 2505, 69241, 15116 #### [facility] [address] [place] [address], [place] ALKALINE PHOSPH 89 IU/L Normal 34-104 [facility] Comment on above: Performed By: #### 2 2505, 30866, 20467 #### [facility] [address] [place] [address], [facility] ALT [Catalytic activity/Vol] 12 U/L Normal 7-52 [facility] Comment on above: Performed By: #### 2 2505, 27369, 97455 #### [facility] [address] [place] [address], [facility] AST [Catalytic activity/Vol] 13 U/L Normal 13-39 [facility] Comment on above: Performed By: #### 2 2505, 47095, 10769 #### [facility] [address] [place] [address], [place] Bilirubin [Mass/Vol] 0.3 mg/dL Normal 0.3-1.0 [facility] Comment on above: Performed By: #### 2 2505, 01128, 94630 #### [facility] [address] [place] [address], [place] Calcium [Mass/Vol] 9.5 mg/dL Normal 8.6-10.3 [facility] Comment on above: Performed By: #### 2 2505, 18119, 43242 #### [facility] [address] [place] [address], [place] Chloride [Moles/Vol] 103 mmol/L Normal 98-107 [facility] Comment on above: Performed By: #### 2 2505, 96470, 92462 #### [facility] [address] [place] [address], [place] CO2 [Moles/Vol] 22 mmol/L Normal 21-31 [facility] Comment on above: Performed By: #### 2 2505, 57547, 64852 #### [facility] [address] [place] [address], [place] Creatinine [Mass/Vol] 3.51 mg/dL High 0.60-1.20 [facility] Comment on above: Performed By: #### 2 2505, 63572, 70479 #### [facility] [address] [place] [address], [place] eGFR- 17 ml/min/1.73sq m Abnormal >60 [facility] Comment on above: Performed By: #### 2 2505, 38438, 68427 #### [facility] [address] [place] [address], [place] eGFR- non- 14 ml/min/1.73sq m Abnormal >60 [facility] Comment on above: Performed By: #### 2 2505, 04915, 91898 #### [facility] [address] [place] [address], [place] Glucose [Mass/Vol] 100 mg/dL Normal 70-100 [facility] Comment on above: Performed By: #### 2 2505, 63851, 99551 #### [facility] [address] [place] [address], [place] Potassium [Moles/Vol] 3.9 mmol/L Normal 3.5-5.1 [facility] Comment on above: Performed By: #### 2 2505, 47518, 43594 #### [facility] [address] [place] [address], [place] Protein [Mass/Vol] 8.0 g/dL Normal 6.0-8.3 [facility] Comment on above: Performed By: #### 2 2505, 04290, 15624 #### [facility] [address] [facility] [place] [address], [facility] Sodium [Moles/Vol] 136 mmol/L Normal 136-145 [facility] Comment on above: Performed By: #### 2 2505, 49649, 86332 #### [facility] [address] [facility] [place] [address], [facility] Urea nitrogen [Mass/Vol] 41 mg/dL High 7-25 [facility] Comment on above: Performed By: #### 2 2505, 87720, 39807 #### [facility] [address] [facility] [place] [address], [facility] CREATININE URINE RANDOMon Creatinine (U) [Mass/Vol] 63.0 mg/dL Normal [facility] Comment on above: Result Comment: Ther e are no established reference values for random urine specimens Performed By: #### 3 1397, 59146, 69704, 81518, 90523 #### [facility] [address] [place] [address], [facility] CT RENAL RECIPIENT ABDOMEN A ND PEVLIS WO CONTRASTon 02-12-2022 CT RENAL RECIPIENT ABDOMEN AND PEVLIS WO CONTRAST [facility] Department of Radiology [address] [place] [id number] Patient Name: MANDEEP PURI : 1975 [...] achievable. Electronically signed: NAN SARAVIA. Transcribed by: [email or web address], User Resident: Electronically Signed by: NAN SARAVIA @ 02/12/2022 02:59 PM Normal [facility] Comment on above: Order Comment: , [...] Bilirubin.direct [Mass/Vol] 0.0 mg/dL Normal 0.0-0.2 [facility] Comment on above: Performed By: #### 2 5685, 11612, 04125 #### [facility] [address] [facility] [place] [address], [facility] BRETT LAGUERRE VIRUS ABon 05- EB VCA IGG 2.35 Normal [facility] Comment on above: Order Comment: CONSI STENT WITH PAST EBV INFECTION Result Comment: NORM AL RANGES: < OR = 0.9O NEGATIVE ; NO DETECTABLE IgG ANTIBODY TO EBV-VCA 0.91 - 1.09 EQUIVOCAL; REPEAT TESTING SUGGESTED > OR = 1.10 POSITIVE ; INDICATES PRESENCE OF DETECTABLE IgG ANTIBODY TO EBV Performed By: #### 3 1397, 32680, 04241, 72790, 29530 #### [facility] [address] EB VCA IGM 0.00 Normal [facility] Comment on above: Order Comment: CONSI STENT WITH PAST EBV INFECTION Result Comment: NORM AL RANGES: < OR = 0.9O NEGATIVE ; NO SIGNIFICANT LEVEL OF DETECTABLE EBV-VCA IgM AB 0.91 - 1.09 EQUIVOCAL; REPEAT TESTING SUGGESTED > OR = 1.10 POSITIVE ; SIGNIFICANT LEVEL OF DETECTABLE EBV-VCA IgM AB Performed By: #### 3 1397, 59415, 39794, 97856, 72852 #### [facility] [address] HEMOGLOBIN A1Con 02-12-2022 Glucose [Moles/Vol] 120 mmol/L Normal [facility] Comment on above: Performed By: #### 8 5123, 38637 #### [facility] [address] HbA1c (Bld) [Mass fraction] 5.8 % Normal 4.0-6.0 [facility] Comment on above: Performed By: #### 8 5123, 34975 #### [facility] [address] HEPATITIS A ANTIBODY IGMon 0 02-12-2022 HEP A AB IGM Non-Reactive Normal NONREACTIVE [facility] Comment on above: Performed By: #### 3 1397, 47201, 48821, 34721, 48583 #### [facility] [address] [facility]. [address] HEPATITIS B CORE ANTIBODYon 02-12-2022 HEP B CORE AB Non-Reactive Normal NONREACTIVE [facility] Comment on above: Performed By: #### 3 1397, 55109, 01500, 25461, 02664 #### [facility] [address] [facility] [place] [address], [facility] HEPATITIS B SURFACE ANTIBODY QUANTon 02-12-2022 HEP B SURF AB 1.14 mIU/ml Normal [facility] Comment on above: Result Comment: INTE RPRETATION: NONREACTIVE<8.00 mIU/mL INDETERMINATE8.00 - 12.00 mIU/mL REACTIVE>12 mIU/mL Performed By: #### 3 1397, 16406, 12491, 93157, 19830 #### [facility] [address] HEPATITIS B SURFACE ANTIGEN QUALon 02-12-2022 HEP B SURF AG QUAL Non-Reactive Normal NONREACTIVE [facility] Comment on above: Performed By: #### 3 1397, 38771, 97244, 20452, 57084 #### [facility] [address] HEPATITIS C ANTIBODYon 02-12 ANTI-HCV Non-Reactive Normal NONREACTIVE [facility] Comment on above: Performed By: #### 3 1397, 59629, 24941, 78698, 34988 #### [facility] [address] [facility] [address] HIV1 AND 2 COMBO 4Gon 2021 HIV COMBO Negative Normal NEGATIVE [facility] Comment on above: Performed By: #### 3 1397, 68208, 84351, 11785, 28682 #### [facility] [address] [facility]. [address] HLA ABC CLASS I TYPINGon A*-1 EQUIVALENT 1 Normal [facility] Comment on above: Order Comment: Some [...] to frequency. Performed By: #### 3 1397, 45266, 76222, 00394, 03689 #### [facility] [address] [place] [address], [facility] A*-2 EQUIVALENT [address] [facility] Comment on above: Order Comment: Some of [...] to frequency. Performed By: #### 3 1397, 76147, 20399, 22803, 40233 #### [facility] [address] [facility] [place] [address], [facility] B*-1 EQUIVALENT 35 Normal [facility] Comment on above: Order Comment: Some [...] to frequency. Performed By: #### 3 1397, 51217, 14749, 04021, 08784 #### [facility] [address] [facility] [place] [address], [facility] B*-2 EQUIVALENT 37 Normal [facility] Comment on above: Order Comment: Some [...] to frequency. Performed By: #### 3 1397, 65074, 79959, 00809, 30824 #### [facility] [address] [facility] [place] [address], [facility] Bw*-1 EQUIVALENT 4 Normal [facility] Comment on above: Order Comment: Some [...] to frequency. Performed By: #### 3 1397, 49263, 71470, 10352, 41619 #### [facility] [address] [facility] [place] [address], [facility] Bw*-2 EQUIVALENT [address] [facility] Comment on above: Order Comment: Some of [...] to frequency. Performed By: #### 3 1397, 12342, 85259, 54627, 69612 #### [facility] [address] [facility] [place] [address], [facility] C*-1 EQUIVALENT 4 Normal [facility] Comment on above: Order Comment: Some [...] to frequency. Performed By: #### 3 1397, 90431, 83884, 74621, 59850 #### [facility] [address] [place] [address], [facility] C*-2 EQUIVALENT [address] [facility] Comment on above: Order Comment: Some of [...] to frequency. Performed By: #### 3 1397, 09347, 92919, 76076, 19234 #### [facility] [address] METHOD Class I Typing by PCR-SSOP Luminex Normal [facility] Comment on above: Order Comment: Some of [...] to frequency. Performed By: #### 3 1397, 76281, 17275, 35364, 75808 #### [facility] [address] [facility]. [place] [id number], [facility] SIGNED BY Normal [facility] Comment on above: Order Comment: Some [...] probable, due to frequency. Result Comment: Sree Noriega, MS,CHT(DONA),MT(ASCP) Kerrick Kleaner Operator, Transplant Immunology Performed By: #### 3 1397, 64463, 39497, 78348, 49079 #### [facility] [address] [place] [address], [facility] HLA DR CLASS II TYPINGon DPB1*-1 EQUIVALENT 04:01 Normal [facility] Comment on above: Order Comment: Some [...] to frequency. Performed By: #### 3 1397, 85467, 30604, 46784, 60025 #### [facility] [address] [facility] [place] [address], [facility] DPB1*-2 EQUIVALENT 04:02 Normal [facility] Comment on above: Order Comment: Some [...] to frequency. Performed By: #### 3 1397, 84577, 94502, 91376, 26662 #### [facility] [address] [place] [address], [facility] DQA1*-1 EQUIVALENT 01 Normal [facility] Comment on above: Order Comment: Some [...] to frequency. Performed By: #### 3 1397, 95652, 54639, 23140, 92980 #### [facility] [address] [facility] [place] [address], [facility] DQA1*-2 EQUIVALENT 05 Normal [facility] Comment on above: Order Comment: Some [...] to frequency. Performed By: #### 3 1397, 87565, 47733, 31318, 49805 #### [facility] [address] [facility] [place] [address], [place] DQB1*-1 EQUIVALENT 7 Normal [facility] Comment on above: Order Comment: Some [...] to frequency. Performed By: #### 3 1397, 56756, 43814, 14679, 20877 #### [facility] [address] [place] [address], [place] DQB1*-2 EQUIVALENT 5 Normal [facility] Comment on above: Order Comment: Some [...] to frequency. Performed By: #### 3 1397, 91612, 14334, 22034, 00438 #### [facility] [address] [place] [address], [facility] DRB1*-1 EQUIVALENT [address] [facility] Comment on above: Order Comment: Some of [...] to frequency. Performed By: #### 3 1397, 71824, 14505, 02169, 49566 #### [facility] [address] [place] [address], [facility] DRB1*-2 EQUIVALENT 11 Normal [facility] Comment on above: Order Comment: Some [...] to frequency. Performed By: #### 3 1397, 71919, 85673, 50216, 03542 #### [facility] [address] [facility] [place] [address], [facility] DRB3*-1 EQUIVALENT 52 Normal [facility] Comment on above: Order Comment: Some [...] to frequency. Performed By: #### 3 1397, 07262, 53627, 63643, 93868 #### [facility] [address] METHOD Class II Typing by PCR-SSOP Luminex Normal [facility] Comment on above: Order Comment: Some [...] to frequency. Performed By: #### 3 1397, 03504, 91117, 02682, 03775 #### [facility] [address] [facility] [place] [address], [facility] LIPID PROFILEon 02-12-2022 Cholesterol [Mass/Vol] 221 mg/dL High 120-200 [facility] Comment on above: Result Comment: CHOL ESTEROL REFERENCE RANGE: 20 YEARS AND OLDER CARDIOVASCULAR RISK Less than 200 mg/dl Low Risk 200 to 239 mg/dl Borderline Risk 240 mg/dl and greater High Risk Performed By: #### 3 1397, 81666, 36192, 09036, 73601 #### [facility] [address] [place] [address], [facility] Cholesterol in HDL [Mass/Vol] 40 mg/dL Normal 23-92 [facility] Comment on above: Result Comment: Slig ht variation in normal range could be due to gender and/or age. HDL CHOLESTEROL REFERENCE RANGE: 20 years and older Cardiovascular Risk > or =60 mg/dL Desirable 40 TO 59 mg/dL Low Risk <40 mg/dL High Risk Performed By: #### 3 1397, 33880, 58380, 18496, 84204 #### [facility] [address] [place] [address], [facility] Cholesterol in LDL [Mass/Vol] 101 mg/dL Normal 0-130 [facility] Comment on above: Result Comment: LDL IS A CALCULATION LDL IS ONLY VALID IF THE TRIG IS LESS THAN 400. Performed By: #### 3 1397, 77461, 84460, 53832, 25608 #### [facility] [address] [place] [address], [facility] Cholesterol.total/Chol esterol in HDL [Mass ratio] 5.5 {ratio} High .0-4.5 [facility] Comment on above: Performed By: #### 3 1397, 39118, 86975, 69985, 06811 #### [facility] [address] NON-HDL CHOLESTEROL 181 mg/dL Normal [facility] Comment on above: Performed By: #### 3 1397, 37344, 43921, 49055, 11997 #### [facility] [address] Triglyceride [Mass/Vol] 402 mg/dL High 40-149 [facility] Comment on above: Result Comment: TRIG LYCERIDE REFERENCE RANGE: 20 YEARS AND OLDER CARDIOVASCULAR RISK LESS THAN 150 mg/dl LOW RISK 150 TO 199 mg/dl BORDERLINE RISK 200 mg/dl AND GREATER HIGH RISK Performed By: #### 3 1397, 06850, 24352, 91237, 60237 #### [facility] [address] [place] [address], [facility] VLDL CHOL 80 mg/dL High 0-40 [facility] Comment on above: Performed By: #### 3 1397, 07888, 10516, 03976, 69250 #### [facility] [address] [place] [address], [facility] MUMPS IGG BLDon 02-12-2022 MUMPS IGG 5.46 Normal [facility] Comment on above: Result Comment: NORM AL RANGES: < OR = 0.9O NEGATIVE ; NO DETECTABLE IgG ANTIBODY TO MUMPS 0.91 - 1.09 EQUIVOCAL; REPEAT TESTING SUGGESTED > OR = 1.10 POSITIVE ; INDICATES PRESENCE OF DETECTABLE IgG ANTIBODY TO MUMPS Performed By: #### 3 1397, 73237, 44600, 53565, 17589 #### [facility] [address] [facility] RUBELLAon 02-12-2022 RUBELLA 4.79 Normal [facility] Comment on above: Result Comment: NORM AL RANGES: < OR = 0.9O NEGATIVE ; NO DETECTABLE IgG ANTIBODY TO RUBELLA 0.91 - 1.09 EQUIVOCAL; REPEAT TESTING SUGGESTED > OR = 1.10 POSITIVE ; INDICATES PRESENCE OF DETECTABLE IgG ANTIBODY TO RUBELLA VIRUS Performed By: #### 3 1397, 38378, 77308, 17566, 74465 #### [facility] [address] [place] [address], [facility] RUBEOLA MEASLES IGGon 2021 RUBEO IGG 6.[address] [facility] Comment on above: Result Comment: NORM AL RANGES: < OR = 0.9O NEGATIVE ; NO DETECTABLE IgG ANTIBODY TO RUBEOLA 0.91 - 1.09 EQUIVOCAL; REPEAT TESTING SUGGESTED > OR = 1.10 POSITIVE ; INDICATES PRESENCE OF DETECTABLE IgG ANTIBODY TO RUBEOLA Performed By: #### 3 1397, 18290, 54125, 33093, 02438 #### [facility] [address] SINGLE ANTIGEN CLASS 1on METHOD Class I Single Antigen Normal [facility] Comment on above: Order Comment: Some [...] to frequency. Performed By: #### 3 1397, 71032, 00689, 24373, 22190 #### [facility] [address] SINGLE ANTIGEN CLASS 2on COMMENTS Normal [facility] Comment on above: Order Comment: Some of [...] watch list. Performed By: #### 3 1397, 82309, 95551, 23450, 03265 #### [facility] [address] Result Comment: Clas s I Antigen Microbeads Potential specificites added to the watch list. CPRA 0 Normal [facility] Comment on above: Order Comment: Some [...] to frequency. Performed By: #### 3 1397, 12629, 66343, 97576, 51039 #### [facility] [address] [place] [address], [facility] METHOD Class II Single Antigen Normal [facility] Comment on above: Order Comment: Some [...] to frequency. Performed By: #### 3 1397, 68527, 58648, 35720, 00378 #### [facility] [address] [place] [address], [facility] T PROT UR Yesy 02-12-2022 U TOTAL PROTEIN 44.0 mg/dL Normal [facility] Comment on above: Result Comment: Ther e are no established reference values for random urine specimens Performed By: #### 3 1397, 88070, 50276, 46357, 39666 #### [facility] [address] [facility]. [address] TB QUANTIFERON PLUSon 2021 MITOGEN MINUS NIL >10.00 Normal [facility] Comment on above: Performed By: #### 3 1592 #### [facility] [address] [facility] [place] [address], [facility] NIL 0.03 IU/mL Normal [facility] Comment on above: Performed By: #### 3 1592 #### [facility] [address] [facility]. [address] TB QUANTIFERON Negative Normal NEGATIVE [facility] Comment on above: Result Comment: Jadiel tiferon TB Gold Interpretation (IU/mL): NEGATIVE: M. tuberculosis infection not likely. Nil: <=8.0 TB1 Antigen minus Nil (VB2VL-EDD): <0.35 OR >=0.35; and <25% of Nil value. TB2 Antigen minus Nil ([id number]): <0.35 OR >=0.35; and <25% of Nil [...] (https://www.cdc.gov/tb/publications/guidlines/default.htm Performed By: #### 3 1592 #### [facility] [address] [facility] [place] [address], [facility] TB1 AG 0.05 IU/mL Normal [facility] Comment on above: Performed By: #### 3 1592 #### [facility] [address] [place] [address], [facility] TB1 AG MINUS NIL 0.02 IU/mL Normal [facility] Comment on above: Performed By: #### 3 1592 #### [facility] [address] [place] [address], [facility] TB2 AG 0.05 IU/mL Normal [facility] Comment on above: Performed By: #### 3 1592 #### [facility] [address] [place] [address], [facility] TB2 AG MINUS NIL 0.02 IU/mL Normal [facility] Comment on above: Performed By: #### 3 1592 #### [facility] [address] [place] [address], [facility] UA,MICROSCOPIC REQUIREDon Appearance (U) SL CLOUDY Abnormal CLEAR [facility] Comment on above: Performed By: #### 3 1397, 00571, 35835, 46831, 13505 #### [facility] [address] [facility] [place] [address], [facility] Bilirubin Ql (U) Negative Normal NEGATIVE [facility] Comment on above: Performed By: #### 3 1397, 45649, 95649, 33539, 82105 #### [facility] [address] [place] [address], [facility] Color (U) STRAW Abnormal YELLOW [facility] Comment on above: Performed By: #### 3 1397, 79374, 29805, 67854, 94825 #### [facility] [address] [place] [address], [facility] EPIS MANY Abnormal FEW,OCC,NONE SEEN [facility] Comment on above: Performed By: #### 3 1397, 41574, 75482, 80765, 53013 #### [facility] [address] [place] [address], [facility] Glucose Ql (U) 50 mg/dL Abnormal NEGATIVE [facility] Comment on above: Performed By: #### 3 1397, 63323, 99646, 01328, 53150 #### [facility] [address] [place] [address], [place] Hemoglobin Ql (U) Negative Normal NEGATIVE [facility] Comment on above: Performed By: #### 3 1397, 55265, 83359, 90789, 40621 #### [facility] [address] [place] [address], [facility] KETONE Negative Normal NEGATIVE [facility] Comment on above: Performed By: #### 3 1397, 25917, 17244, 42320, 68227 #### [facility] [address] [place] [address], [facility] LEUK MARYAN MODERATE Abnormal NEGATIVE [facility] Comment on above: Performed By: #### 3 1397, 72499, 08441, 08163, 83113 #### [facility] [address] [place] [address], [facility] Nitrite Ql (U) Negative Normal NEGATIVE [facility] Comment on above: Performed By: #### 3 1397, 27171, 52317, 19782, [id number] #### [facility] [address] [place] [address], [facility] pH (U) 7.0 [pH] Normal 5.0-8.0 [facility] Comment on above: Performed By: #### 3 1397, 49249, 14002, 15979, [id number] #### [facility] [address] [place] [address], [facility] Protein Ql (U) 30 mg/dL Abnormal NEGATIVE [facility] Comment on above: Performed By: #### 3 1397, [id number], 91003, 97971, 49362 #### [facility] [address] [place] [address], [place] RBC NONE SEEN Normal NONE SEEN [facility] Comment on above: Performed By: #### 3 1397, [id number], 03133, 66876, [id number] #### [facility] 3000 [facility]. [address] SPEC GRAV 1.009 Low 1.015-1.020 [facility] Comment on above: Performed By: #### 3 1397, 51477, 94908, 43822, 03474 #### [facility] 3000 [facility]. [address] WBC UA 11-20 Abnormal NONE SEEN [facility] Comment on above: Performed By: #### 3 1397, [id number], 91677, [id number], 90918 #### [facility] [address] [facility] [address] VARICELLA ZOSTER IGGon 02-12 VARICELLA IGG 3.29 Normal [facility] Comment on above: Result Comment: NORM AL RANGES: < OR = 0.9O NEGATIVE ; NO DETECTABLE IgG ANTIBODY TO VARICELLA-ZOSTER VIRUS 0.91 - 1.09 EQUIVOCAL; REPEAT TESTING SUGGESTED > OR = 1.10 POSITIVE ; INDICATES PRESENCE OF DETECTABLE IgG ANTIBODY TO VARICELLA-ZOSTER VIRUS Performed By: #### 3 1397, 27686, 03726, 59838, 59158 #### [facility] 3000 [facility]. [address] PTH INTACTon 12-04-2021 PTH, Intact 165 pg/mL Critically high 15-65 [facility] Comment on above: Performed By: #### M G, URIC, RENAL #### [facility] [address] [address] [address] Hari Palmer FERRITINon 12-03-2021 Ferritin [Mass/Vol] 256.0 ng/mL Critically high 6.2-137.0 [facility] Comment on above: Performed By: #### M G, URIC, RENAL #### [facility] [address] [address] [address] Hari Palmer HEMOGRAM AND PLATELon 2021 Hematocrit (Bld) [Volume fraction] 33.7 % Critically low 36.0-48.0 [facility] Comment on above: Performed By: #### M G, URIC, RENAL #### [facility] [address] [place] [address] Dr. Hari Palmer Hemoglobin (Bld) [Mass/Vol] 10.9 g/dL Critically low 12.0-16.0 [facility] Comment on above: Performed By: #### M G, URIC, RENAL #### [facility] [address] [place] [address] Dr. Hari Palmer MCH (RBC) [Entitic mass] 31.4 pg Normal 26.7-34.0 [facility] Comment on above: Performed By: #### M Edy, URIC, RENAL #### [facility] [address] [place] [address] Dr. Hari Palmer MCHC (RBC) [Mass/Vol] 32.3 g/dL Normal 29.9-35.2 [facility] Comment on above: Performed By: #### M G, URIC, RENAL #### [facility] [address] [place] [address] Dr. Hari Palmer MCV (RBC) [Entitic vol] 97.1 fL Normal 81.0-99.0 [facility] Comment on above: Performed By: #### M G, URIC, RENAL #### [facility] [address] [place] [address] Dr. Hari Palmer PLT 314 103/ul Normal 150-450 [facility] Comment on above: Performed By: #### M G, URIC, RENAL #### [facility] [address] [place] [address] Dr. Hari Palmer RBC 3.47 106/ul Critically low 4.20-5.40 [facility] Comment on above: Performed By: #### M G, URIC, RENAL #### [facility] [address] [place] [address] Dr. Hari Palmer WBC 9.4 103/ul Normal 4.0-11.0 [facility] Comment on above: Performed By: #### M G, URIC, RENAL #### [facility] [address] [place] [address] Dr. Hari Palmer IRON AND TIBCon 12-03-2021 % SATURATION 19.0 % Normal [facility] Comment on above: Performed By: #### M G, URIC, RENAL #### [facility] [address] [place] [address] Dr. Hari Palmer Iron [Mass/Vol] 52.0 ug/dL Normal 37.0-170.0 [facility] Comment on above: Performed By: #### M G, URIC, RENAL #### [facility] [address] [place] [address] Dr. Hari Palmer TIBC DIRECT 273.0 ug/dL Normal 261.0-497.0 [facility] Comment on above: Performed By: #### M G, URIC, RENAL #### [facility] [address] [place] [address] Dr. Hari Palmer MAGNESIUMon 12-03-2021 Magnesium [Mass/Vol] 2.1 mg/dL Normal 1.6-2.3 [facility] Comment on above: Performed By: #### M G, URIC, RENAL #### [facility] [address] [place] [address] Dr. Hari Palmer RENAL FUNCTION PANELon 12-03 Albumin [Mass/Vol] 3.6 g/dL Normal 3.5-5.0 [facility] Comment on above: Performed By: #### M G, URIC, RENAL #### [facility] [address] [place] [address] Dr. Hari Palmer Calcium [Mass/Vol] 8.4 mg/dL Normal 8.4-10.2 [facility] Comment on above: Performed By: #### M G, URIC, RENAL #### [facility] [address] [place] [address] Dr. Hari Palmer Chloride [Moles/Vol] 101 mmol/L Normal 98-107 [facility] Comment on above: Performed By: #### M G, URIC, RENAL #### [facility] [address] [place] [address] Dr. Hari Palmer CO2 [Moles/Vol] 24.3 mmol/L Normal 22.0-30.0 [facility] Comment on above: Performed By: #### M G, URIC, RENAL #### [facility] [address] [address] [address] Hari Palmer Creatinine [Mass/Vol] 3.32 mg/dL Critically high 0.52-1.04 [facility] Comment on above: Performed By: #### M G, URIC, RENAL #### [facility] [address] [address] [address] Hari Palmer EGFR-AF CITIZ[place] 18 mL/min/1.73m2 Critically low >=60 [facility] Comment on above: Performed By: #### M Edy, URIC, RENAL #### [facility] [address] [place] [address] Dr. Hari Palmer EGFR-NON AF CITIZEN [place] 15 mL/min/1.73m2 Critically low >=60 [facility] Comment on above: Performed By: #### M G, URIC, RENAL #### [facility] [address] [address] [address] Hari Palmer Glucose [Mass/Vol] 119 mg/dL Critically high 74-106 [facility] Comment on above: Performed By: #### M G, URIC, RENAL #### [facility] [address] [address] [address] Hari Palmer Phosphate [Mass/Vol] 4.7 mg/dL Critically high 2.5-4.5 [facility] Comment on above: Performed By: #### M G, URIC, RENAL #### [facility] [address] [address] [address] Hari Palmer Potassium [Moles/Vol] 4.0 mmol/L Normal 3.4-5.0 [facility] Comment on above: Performed By: #### M G, URIC, RENAL #### [facility] [address] [address] [address] Hari Palmer Sodium [Moles/Vol] 135 mmol/L Critically low 137-145 [facility] Comment on above: Performed By: #### M G, URIC, RENAL #### [facility] [address] [address] [address] Hari Palmer Urea nitrogen [Mass/Vol] 42.0 mg/dL Critically high 7.0-17.0 [facility] Comment on above: Performed By: #### M G, URIC, RENAL #### [facility] [address] [place] [address] Dr. Hari Palmer UA RANDOM W/MICROSCOPICon BACTERIA TRACE Abnormal NONE SEEN [facility] Comment on above: Performed By: #### U AMIC #### [facility] [address] [place] [address] Dr. Hari Palmer Bilirubin Ql (U) Negative Normal NEGATIVE [facility] Comment on above: Performed By: #### U AMIC #### [facility] [address] [place] [address] Dr. Hari Palmer CAST NONE SEEN Normal NONE SEEN [facility] Comment on above: Performed By: #### U AMIC #### [facility] [address] [place] [address] Dr. Hari Palmer Clarity (U) CLEAR Normal CLEAR [facility] Comment on above: Performed By: #### U AMIC #### [facility] [address] [place] [address] Dr. Hari Palmer Color (U) LT. YELLOW Normal YELLOW [facility] Comment on above: Performed By: #### U AMIC #### [facility] [address] [address] [address] Hari Palmer Crystals LM Nom (Urine sed) NONE SEEN Normal NONE SEEN [facility] Comment on above: Performed By: #### U AMIC #### [facility] [address] [place] [address] Dr. Hari Palmer Epithelial cells LM Ql (Urine sed) FEW Abnormal NONE SEEN /RARE [facility] Comment on above: Performed By: #### U AMIC #### [facility] [address] [place] [address] Dr. Hari Palmer Glucose Ql (U) 100 mg/dl Abnormal NEGATIVE [facility] Comment on above: Performed By: #### U AMIC #### [facility] [address] [address] [address] Hari Palmer Hemoglobin Ql (U) TRACE-INTACT Abnormal NEGATIVE [facility] Comment on above: Performed By: #### U AMIC #### [facility] [address] [address] [address] Hari Palmer Ketones Ql (U) Negative Normal NEGATIVE [facility] Comment on above: Performed By: #### U AMIC #### [facility] [address] [address] [address] Hari Palmer LEUKOCYTES SMALL Abnormal NEGATIVE [facility] Comment on above: Performed By: #### U AMIC #### [facility] [address] [place] [address] Dr. Hari Palmer MUCOUS NONE SEEN Normal NONE SEEN [facility] Comment on above: Performed By: #### U AMIC #### [facility] [address] [address] [address] Hari Palmer Nitrite Ql (U) Negative Normal NEGATIVE [facility] Comment on above: Performed By: #### U AMIC #### [facility] [address] [place] [address] Dr. Hari Palmer pH (U) 6.0 [pH] Normal 5-9 [facility] Comment on above: Performed By: #### U AMIC #### [facility] [address] [address] [address] Hari Palmer RBC 0-2 Normal 0-2 [facility] Comment on above: Performed By: #### U AMIC #### [facility] [address] [place] [address] Dr. Hari Palmer SPEC GRAVITY 1.010 Normal 1.005-<=1.02 5 [facility] Comment on above: Performed By: #### U AMIC #### [facility] [address] [address] [address] Hari Palmer UA PROTEIN Negative Normal NEGATIVE/ TRACE [facility] Comment on above: Performed By: #### U AMIC #### [facility] [address] [address] [address] Hari Palmer Urobilinogen Qn (U) 0.2 {Janice'U}/dL Normal 0.2 - 1. 0 [facility] Comment on above: Performed By: #### U AMIC #### [facility] [address] [address] [address] Hari Palmer WBC 5-10 Abnormal NONE SEEN [facility] Comment on above: Performed By: #### U AMIC #### [facility] [address] [place] [address] Dr. Hari Palmer URIC ACID SERUMon 12-03-2021 Urate [Mass/Vol] 4.6 mg/dL Normal 2.5-6.2 [facility] Comment on above: Performed By: #### M G, URIC, RENAL #### [facility] [address] [place] [address] Dr. Hari Palmer URINE T PROTEIN CREAT RATIOo n 12-03-2021 Protein (U) [Mass/Vol] 31.7 mg/dL Critically high <=12.0 [facility] Comment on above: Performed By: #### M G, URIC, RENAL #### [facility] [address] [place] [address] Dr. Hari Palmer UR PROT CREAT RAT 0.54 Normal [facility] Comment on above: Performed By: #### M G, URIC, RENAL #### [facility] [address] [place] [address] Dr. Hari Palmer URINE CREAT 59.03 mg/dL Normal 20.00-300.00 [facility] Comment on above: Performed By: #### M G, URIC, RENAL #### [facility] [address] [place] [address] Dr. Hari Palmer VITAMIN D 25 OHon 12-03-2021 VIT D 25-OH 38.1 ng/mL Normal [facility] Comment on above: Performed By: #### M G, URIC, RENAL #### [facility] [address] [place] [address] Dr. Hari Palmer VIT D RANGES SEE BELOW Normal [facility] Comment on above: Result Comment: <20 ng/mL Vit D deficient 20 - <30 ng/mL Vit D insufficient 30 - 100 ng/mL Vit D sufficient >100 ng/mL Potential Toxicity Performed By: #### M G, URIC, RENAL #### [facility] [address] [address] [address] Hari Palmer PTH INTACTon 09-03-2021 PTH, Intact 177 pg/mL Critically high 15-65 [facility] Comment on above: Performed By: #### P THINT #### [facility] [address] [address] [address] Hari Palmer CBC AUTO DIFFon 09-01-2021 BASO # 0.1 103/ul Normal 0.0-0.1 [facility] Comment on above: Performed By: #### M G, URIC, RENAL #### [facility] [address] [address] [address] Hari Palmer Basophils/100 WBC (Bld) 0.6 % Normal 0.2-2.0 [facility] Comment on above: Performed By: #### M G, URIC, RENAL #### [facility] [address] [address] [address] Hari Palmer EO # 0.3 103/ul Normal 0.0-0.7 [facility] Comment on above: Performed By: #### M G, URIC, RENAL #### [facility] [address] [address] [address] Hari Palmer Eosinophils/100 WBC (Bld) 3.5 % Normal 0.9-7.0 [facility] Comment on above: Performed By: #### M G, URIC, RENAL #### [facility] [address] [address] [address] Hari Palmer Erythrocyte distribution width (RBC) [Ratio] 13.8 % Normal 11.0-15.0 [facility] Comment on above: Performed By: #### M G, URIC, RENAL #### [facility] [address] [address] [address] Hari Palmer Hematocrit (Bld) [Volume fraction] 32.8 % Critically low 36.0-48.0 [facility] Comment on above: Performed By: #### M G, URIC, RENAL #### [facility] [address] [place] [address] Dr. Hari Palmer Hemoglobin (Bld) [Mass/Vol] 10.6 g/dL Critically low 12.0-16.0 [facility] Comment on above: Performed By: #### M G, URIC, RENAL #### [facility] [address] [place] [address] Dr. Hari Palmer IG # 0.14 10e3/ul Critically high 0.00-0.03 [facility] Comment on above: Performed By: #### M G URIC, RENAL #### [facility] [address] [place] [address] Dr. Hari Palmer IG % 1.5 % Critically high 0.0-0.5 [facility] Comment on above: Performed By: #### M G, URIC, RENAL #### [facility] [address] [place] [address] Dr. Hari Palmer LYMPH # 1.8 103/ul Normal 1.2-3.8 [facility] Comment on above: Performed By: #### M G, URIC, RENAL #### [facility] [address] [place] [address] Dr. Hari Palmer Lymphocytes/100 WBC (Bld) 19.3 % Critically low 20.5-60.0 [facility] Comment on above: Performed By: #### M G, URIC, RENAL #### [facility] [address] [place] [address] Dr. Hari Palmer MANUAL DIFF REQ NO Normal [facility] Comment on above: Performed By: #### M G, URIC, RENAL #### [facility] [address] [place] [address] Dr. Hari Palmer MCH (RBC) [Entitic mass] 31.4 pg Normal 26.7-34.0 [facility] Comment on above: Performed By: #### M G, URIC, RENAL #### [facility] [address] [place] [address] Dr. Hari Palmer MCHC (RBC) [Mass/Vol] 32.3 g/dL Normal 29.9-35.2 [facility] Comment on above: Performed By: #### M G, URIC, RENAL #### [facility] [address] [place] [address] Dr. Hari Palmer MCV (RBC) [Entitic vol] 97.0 fL Normal 81.0-99.0 [facility] Comment on above: Performed By: #### M G, URIC, RENAL #### [facility] [address] [place] [address] Dr. Hari Palmer MONO # 0.4 103/ul Normal 0.3-0.8 [facility] Comment on above: Performed By: #### M G, URIC, RENAL #### [facility] [address] [place] [address] Dr. Hari Palmer Monocytes/100 WBC (Bld) 4.2 % Normal 1.7-12.0 [facility] Comment on above: Performed By: #### M G, URIC, RENAL #### [facility] [address] [place] [address] Dr. Hari Palmer NEUT # 6.5 103/ul Normal 1.4-6.5 [facility] Comment on above: Performed By: #### M G, URIC, RENAL #### [facility] [address] [place] [address] Dr. Hari Palmer Neutrophils/100 WBC (Bld) 70.9 % Normal 43.0-75.0 [facility] Comment on above: Performed By: #### M G, URIC, RENAL #### [facility] [address] [place] [address] Dr. Hari Palmer Platelet mean volume (Bld) [Entitic vol] 9.0 fL Critically low 9.5-13.5 [facility] Comment on above: Performed By: #### M G, URIC, RENAL #### [facility] [address] [place] [address] Dr. Hari Palmer PLT 289 103/ul Normal 150-450 [facility] Comment on above: Performed By: #### M G, URIC, RENAL #### [facility] [address] [place] [address] Dr. Hari Palmer RBC 3.38 106/ul Critically low 4.20-5.40 [facility] Comment on above: Performed By: #### M G, URIC, RENAL #### [facility] [address] [place] [address] Dr. Hari Palmer WBC 9.1 103/ul Normal 4.0-11.0 [facility] Comment on above: Performed By: #### M G, URIC, RENAL #### [facility] [address] [place] [address] Dr. Hari Palmer FERRITINon 09-01-2021 Ferritin [Mass/Vol] 204.0 ng/mL Critically high 6.2-137.0 [facility] Comment on above: Performed By: #### M G, URIC, RENAL #### [facility] [address] [place] [address] Dr. Hari Palmer IRON AND TIBCon 09-01-2021 % SATURATION 28.4 % Normal [facility] Comment on above: Performed By: #### M G, URIC, RENAL #### [facility] [address] [place] [address] Dr. Hari Palmer Iron [Mass/Vol] 80.0 ug/dL Normal 37.0-170.0 [facility] Comment on above: Performed By: #### M G, URIC, RENAL #### [facility] [address] [place] [address] Dr. Hari Palmer TIBC DIRECT 282.0 ug/dL Normal 261.0-497.0 [facility] Comment on above: Performed By: #### M G, URIC, RENAL #### [facility] [address] [place] [address] Dr. Hari Palmer MAGNESIUMon 09-01-2021 Magnesium [Mass/Vol] 2.2 mg/dL Normal 1.6-2.3 [facility] Comment on above: Performed By: #### U AMIC #### [facility] [address] [place] [address] Dr. Hari Palmer RENAL FUNCTION PANELon 09-01 Albumin [Mass/Vol] 3.5 g/dL Normal 3.5-5.0 [facility] Comment on above: Performed By: #### M G, URIC, RENAL #### [facility] [address] [place] [address] Dr. Hari Palmer Calcium [Mass/Vol] 8.7 mg/dL Normal 8.4-10.2 [facility] Comment on above: Performed By: #### M G, URIC, RENAL #### [facility] [address] [address] [address] Hari Palmer Chloride [Moles/Vol] 105 mmol/L Normal 98-107 [facility] Comment on above: Performed By: #### M G, URIC, RENAL #### [facility] [address] [place] [address] Dr. Hari Palmer CO2 [Moles/Vol] 21.1 mmol/L Critically low 22.0-30.0 [facility] Comment on above: Performed By: #### M G, URIC, RENAL #### [facility] [address] [address] [address] Hari Palmer Creatinine [Mass/Vol] 3.63 mg/dL Critically high 0.52-1.04 [facility] Comment on above: Performed By: #### M G, URIC, RENAL #### [facility] [address] [place] [address] Dr. Hari Palmer EGFR-AF [place] 16 mL/min/1.73m2 Critically low >=60 [facility] Comment on above: Performed By: #### M G, URIC, RENAL #### [facility] [address] [place] [address] Dr. Hari Palmer EGFR-NON AF [place]IZ[place] 14 mL/min/1.73m2 Critically low >=60 [facility] Comment on above: Performed By: #### M G, URIC, RENAL #### [facility] [address] [place] [address] Dr. Hari Palmer Glucose [Mass/Vol] 115 mg/dL Critically high 74-106 [facility] Comment on above: Performed By: #### M G, URIC, RENAL #### [facility] [address] [place] [address] Dr. Hari Palmer Phosphate [Mass/Vol] 4.6 mg/dL Critically high 2.5-4.5 [facility] Comment on above: Performed By: #### M G, URIC, RENAL #### [facility] [address] [place] [address] Dr. Hari Palmer Potassium [Moles/Vol] 4.2 mmol/L Normal 3.4-5.0 [facility] Comment on above: Performed By: #### M G, URIC, RENAL #### [facility] [address] [place] [address] Dr. Hari Palmer Sodium [Moles/Vol] 138 mmol/L Normal 137-145 [facility] Comment on above: Performed By: #### M G, URIC, RENAL #### [facility] [address] [place] [address] Dr. Hari Palmer Urea nitrogen [Mass/Vol] 50.0 mg/dL Critically high 7.0-17.0 [facility] Comment on above: Performed By: #### M G, URIC, RENAL #### [facility] [address] [place] [address] Dr. Hari Palmer UA RANDOM W/MICROSCOPICon BACTERIA SMALL Abnormal NONE SEEN [facility] Comment on above: Performed By: #### U AMIC #### [facility] [address] [place] [address] Dr. Hari Palmer Bilirubin Ql (U) Negative Normal NEGATIVE [facility] Comment on above: Performed By: #### U AMIC #### [facility] [address] [place] [address] Dr. Hari Palmer CAST NONE SEEN Normal NONE SEEN [facility] Comment on above: Performed By: #### U AMIC #### [facility] [address] [place] [address] Dr. Hari Palmer Clarity (U) CLEAR Normal CLEAR [facility] Comment on above: Performed By: #### U AMIC #### [facility] [address] [address] [address] Hari Palmer Color (U) LT. YELLOW Normal YELLOW [facility] Comment on above: Performed By: #### U AMIC #### [facility] [address] [place] [address] Dr. Hari Palmer Crystals LM Nom (Urine sed) NONE SEEN Normal NONE SEEN [facility] Comment on above: Performed By: #### U AMIC #### [facility] [address] [address] [address] Hari Palmer Epithelial cells LM Ql (Urine sed) MODERATE Abnormal NONE SEEN /RARE [facility] Comment on above: Performed By: #### U AMIC #### [facility] [address] [place] [address] Dr. Hari Palmer Glucose Ql (U) Negative Normal NEGATIVE [facility] Comment on above: Performed By: #### U AMIC #### [facility] [address] [place] [address] Dr. Hari Palmer Hemoglobin Ql (U) TRACE-INTACT Abnormal NEGATIVE [facility] Comment on above: Performed By: #### U AMIC #### [facility] [address] [place] [address] Dr. Hari Palmer Ketones Ql (U) Negative Normal NEGATIVE [facility] Comment on above: Performed By: #### U AMIC #### [facility] [address] [address] [address] Hari Palmer LEUKOCYTES Negative Normal NEGATIVE [facility] Comment on above: Performed By: #### U AMIC #### [facility] [address] [place] [address] Dr. Hari Palmer MUCOUS NONE SEEN Normal NONE SEEN [facility] Comment on above: Performed By: #### U AMIC #### [facility] [address] [place] [address] Dr. Hari Palmer Nitrite Ql (U) Negative Normal NEGATIVE [facility] Comment on above: Performed By: #### U AMIC #### [facility] [address] [place] [address] Dr. Hari Palmer pH (U) 6.0 [pH] Normal 5-9 [facility] Comment on above: Performed By: #### U AMIC #### [facility] [address] [place] [address] Dr. Hari Palmer RBC 2-5 Abnormal 0-2 [facility] Comment on above: Performed By: #### U AMIC #### [facility] [address] [address] [address] Hari Palmer SPEC GRAVITY 1.010 Normal 1.005-<=1.02 5 [facility] Comment on above: Performed By: #### U AMIC #### [facility] [address] [address] [address] Hari Palmer UA PROTEIN Negative Normal NEGATIVE/ TRACE [facility] Comment on above: Performed By: #### U AMIC #### [facility] [address] [place] [address] Dr. Hari Palmer Urobilinogen Qn (U) 0.2 {Janice'U}/dL Normal 0.2 - 1. 0 [facility] Comment on above: Performed By: #### U AMIC #### [facility] [address] [address] [address] Hari Palmer WBC 2-5 Abnormal NONE SEEN [facility] Comment on above: Performed By: #### U AMIC #### [facility] [address] [place] [address] Dr. Hari Palmer URIC ACID SERUMon 09-01-2021 Urate [Mass/Vol] 4.9 mg/dL Normal 2.5-6.2 [facility] Comment on above: Performed By: #### U AMIC #### [facility] [address] [place] [address] Dr. Hari Palmer URINE T PROTEIN CREAT RATIOo n 09-01-2021 Protein (U) [Mass/Vol] 22.2 mg/dL Critically high <=12.0 [facility] Comment on above: Performed By: #### M G, URIC, RENAL #### [facility] [address] [place] [address] Dr. Hari Palmer UR PROT CREAT RAT 0.47 Normal [facility] Comment on above: Performed By: #### M G, URIC, RENAL #### [facility] [address] [address] [address] Hari Palmer URINE CREAT 46.89 mg/dL Normal 20.00-300.00 [facility] Comment on above: Performed By: #### M G, URIC, RENAL #### [facility] [id number] Hari Palmer VITAMIN D 25 OHon 09-01-2021 VIT D 25-OH 40.5 ng/mL Normal [facility] Comment on above: Performed By: #### M G, URIC, RENAL #### [facility] [address] [place] [address] Dr. Hari Palmer VIT D RANGES SEE BELOW Normal [facility] Comment on above: Result Comment: <20 ng/mL Vit D deficient 20 - <30 ng/mL Vit D insufficient 30 - 100 ng/mL Vit D sufficient >100 ng/mL Potential Toxicity Performed By: #### M G, URIC, RENAL #### [facility] [address] [address] [address] Hari Palmer CNOVon 03-30-2021 JERONIMO Office Visit (NEPHMN ) ----- MANDEEP PURI ([id number]) 1975 F Date Time Provider Department 03/30/21 9:20 AM PERRI BARRETT NEPHMN During your visit today, we recorded the following information about you: Temperature Pulse Blood pressure Weight 98.2 degrees 75/minute 122/77 93 kg Height 1.549 m Perri Barrett MD 03/30/2021 10:25 AM Signed Mrs. 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 (more content not included)... Normal [facility] Urinalysison 03-30-2021 Bilirubin, Urine Negative Normal Negative [facility] Comment on above: Performed By: #### U A #### [address] [place] [place] [address] Clarity (U) Clear Normal Clear [facility] Comment on above: Performed By: #### U A #### [address] [place] [address] Color (U) Colorless Critically abnormal Yellow [facility] Comment on above: Performed By: #### U A #### [address] [place] [address] Comments SEE COMMENT Normal [facility] Comment on above: Result Comment: Micr oscopic not warranted Performed By: #### U A #### [facility] [address] [address] Glucose Ql (U) Trace Critically abnormal Negative [facility] Comment on above: Performed By: #### U A #### [facility] [address] [place], [place] [address] Hemoglobin/Blood,Ur Negative Normal Negative [facility] Comment on above: Performed By: #### U A #### [facility] [address] [address] Ketones Ql (U) Negative Normal Negative [facility] Comment on above: Performed By: #### U A #### [address] [place] [id number] Leukest Negative Normal Negative [facility] Comment on above: Performed By: #### U A #### [address] [place] [address] [place] [address] Nitrite Ql (U) Negative Normal Negative [facility] Comment on above: Performed By: #### U A #### [place] [address] pH (U) 6.5 [pH] Normal 5.0-8.0 [facility] Comment on above: Performed By: #### U A #### [address] [place] [address] Protein, Urine Negative Normal Negative [facility] Comment on above: Performed By: #### U A #### [address] [id number] Specific [place], Ur 1.008 Normal 1.005-1.030 [facility] Comment on above: Performed By: #### U A #### [address] [place] [id number] Urine Codi Comment SEE COMMENT Normal [facility] Comment on above: Result Comment: N/A Performed By: #### U A #### [address] [place], [place] [address] Urobilinogen (U) [Mass/Vol] Negative Normal Negative [facility] Comment on above: Performed By: #### U A #### [address] [address] Coding Summary.on 04-21-2020 Coding Summary. CODING DATE: 020 FINAL [facility] STATUS: Home (Routine DC) PAYOR: Medical Lena ADMIT DX: REASON FOR VISIT DX: Z20.828 [...] CphT Date Saved: 04/21/2020 05:17 pm Normal [facility] Physician Orderon 04-21-2020 Physician Order [id number] Normal [facility] Marci 04-12-2020 ALT [Catalytic activity/Vol] 14 U/L Normal 7 - 45 [facility] Comment on above: Result Comment: Kelsea ents treated with Sulfasalazine may generate falsely decreased results for ALT. Performed By: #### A LT #### [facility] [address] [place] [address] Ronald 04-12-2020 AST [Catalytic activity/Vol] 16 U/L Normal 9 - 39 [facility] Comment on above: Performed By: #### A ST #### [facility] [address] [place] [address] CREATININEon 04-12-2020 Creatinine [Mass/Vol] 2.83 mg/dL High 0.50 - 1.05 [facility] Comment on above: Performed By: #### C REAT #### [facility] [address] [place] [address] Creatinine [Mass/Vol] 18 mL/min/1.73m2 Abnormal >60 [facility] Comment on above: Performed By: #### C REAT #### [facility] [address] [place] [address] Creatinine [Mass/Vol] 22 mL/min/1.73m2 Abnormal >60 [facility] Comment on above: Result Comment: CALC ULATIONS OF ESTIMATED GFR ARE PERFORMED USING THE MDRD STUDY EQUATION FOR THE IDMS-TRACEABLE CREATININE METHODS. CLIN CHEM 2007;53:766-72 Performed By: #### C REAT #### [facility] [address] [place] [address] URIC ACIDon 04-12-2020 Urate [Mass/Vol] 5.2 mg/dL Normal 2.3 - 6.7 [facility] Comment on above: Result Comment: Beti puncture immediately after or during the administration of Metamizole may lead to falsely low results. Testing should be performed immediately prior to Metamizole dosing. Performed By: #### U DICK #### [facility] [address] [place] [address] URIC ACIDon 02-11-2020 Urate [Mass/Vol] 8.2 mg/dL High 2.3 - 6.7 [facility] Comment on above: Result Comment: Beti puncture immediately after or during the administration of Metamizole may lead to falsely low results. Testing should be performed immediately prior to Metamizole dosing. Performed By: #### U DICK #### [facility] [address] [place] [address] Cult,Urineon 08-04-2019 Cult,Urine Specimen Description .CLEAN CATCH URINE Special Requests NOT REPORTED Culture ESCHERICHIA COLI >[id number] CFU/ML Report Status FINAL 08/04/2019 SUSCEPTIBILITY Organism [...] Trimethoprim/Sulfa <=20 SUSCEPTIBLE Piperacillin/Tazobactam <=4 SUSCEPTIBLE Normal [facility] Comment on above: Performed By: #### D CITLALY, LIP, CMPX, TROPI, BNP, CDP, PT #### [facility] [address] [place] [address] Tax Assistant: Sami Dominguez MD Brain Natri. Peptideon 08-02 Natriuretic peptide B (Bld) [Mass/Vol] 152 pg/mL Normal <300 [facility] Comment on above: Result Comment: Pro- BNP results cannot be compared to BNP results. Performed By: #### D CITLALY, LIP, CMPX, TROPI, BNP, CDP, PT #### [facility] [address] [place] [address] Tax Assistant: Sami Dominguez MD Natriuretic peptide B (Bld) [Mass/Vol] Pro-BNP Reference Range: Normal [facility] Comment on above: Result Comment: Rule Out: <300 Parra Zone: Age <50 300-450 Age 50-75 300-900 Age >75 300-1800 Usually represents mild to moderate HF but other cardiopulmonary causes cannot be ruled out. Rule In: Age <50 >450 Age 50-75 >900 Age >75 >1800 Performed By: #### D CITLALY, LIP, CMPX, TROPI, BNP, CDP, PT #### [facility] [address] [place] [address] Tax Assistant: Sami Dominguez MD Brain Natriuretic Peptideon 08-02-2019 Natriuretic peptide B (Bld) [Mass/Vol] 152 pg/mL <300 [place] Comment on above: Pro-BNP results eric ot be compared to BNP results. Natriuretic peptide B (Bld) [Mass/Vol] Pro-BNP Reference Range: [place] Comment on above: Rule Out: <300 Parra Zone: Age <50 300-450 Age 50-75 300-900 Age >75 300-1800 Usually represents mild to moderate HF but other cardiopulmonary causes cannot be ruled out. Rule In: Age <50 >450 Age 50-75 >900 Age >75 >1800 CBC Auto Differentialon - Basophils (Bld) [#/Vol] 0.00 10*3/uL [place] Basophils/100 WBC (Bld) 0 % 0 - 2 % [place] Differential Type NOT REPORTED [place] Eosinophils (Bld) [#/Vol] 0.08 10*3/uL [place] Eosinophils/100 WBC (Bld) 1 % 1 - 4 % [place] Erythrocyte distribution width (RBC) [Ratio] 13.2 % 11.8 - 14.4 % [place] Hematocrit (Bld) [Volume fraction] 33.7 % Low 36.3 - 47.1 % [place] Hemoglobin (Bld) [Mass/Vol] 10.7 g/dL Low 11.9 - 15.1 g/dL [place] Immature granulocytes (Bld) [#/Vol] 0 % 0 [place] Immature granulocytes (Bld) [#/Vol] 0.00 10*3/uL [place] Interpretation and review of laboratory results Abnormal [place] Lymphocytes (Bld) [#/Vol] 0.90 10*3/uL Low [place] Lymphocytes/100 WBC (Bld) 12 % Low 24 - 43 % [place] MCH (RBC) [Entitic mass] 30.2 pg 25.2 - 33.5 pg [place] MCHC (RBC) [Mass/Vol] 31.8 g/dL 28.4 - 34.8 g/dL [place] MCV (RBC) [Entitic vol] 95.2 fL 82.6 - 102.9 fL [place] Monocytes (Bld) [#/Vol] 0.00 10*3/uL Low [place] Monocytes/100 WBC (Bld) 0 % Low 3 - 12 % [place] Morphology Geovany (Bld) [Interp] Normal [place] Platelet mean volume (Bld) [Entitic vol] 8.6 fL 8.1 - 13.5 fL [place] Platelets (Bld) [#/Vol] NOT REPORTED [place] Platelets (Bld) [#/Vol] 335 10*3/uL [place] RBC (Bld) [#/Vol] 3.54 10*6/uL Low 3.95 - 5.1 1 m/uL [place] RBC morphology finding Nom (Bld) NOT REPORTED [place] Segmented neutrophils/100 WBC (Bld) 87 % High 36 - 65 % [place] Segs Absolute 6.52 [place] WBC (Bld) [#/Vol] 7.5 10*3/uL [place] WBC (Bld) [#/Vol] 0.0 10*3/uL 0.0 per 10 0 WBC [place] WBC Morphology NOT REPORTED [place] CBC with Diffon 08-02-2019 Abs. Basophil 0.00 k/uL Normal 0.0-0.2 [facility] Comment on above: Performed By: #### D CITLALY, LIP, CMPX, TROPI, BNP, CDP, PT #### [address] [place] [address] Tax Assistant: Sami Dominguez MD Abs.Imm.Granulocyte 0.00 k/uL Normal 0.00-0.30 [facility] Comment on above: Performed By: #### D CITLALY, LIP, CMPX, TROPI, BNP, CDP, PT #### [address] [place] [address] Tax Assistant: Sami Dominguez MD Abs.Neutrophil (Seg) 6.52 k/uL Normal 1.50-8.10 [facility] Comment on above: Performed By: #### D CITLALY, LIP, CMPX, TROPI, BNP, CDP, PT #### [address] [place] [address] Tax Assistant: Sami Dominguez MD Basophils/100 WBC (Bld) 0 % Normal 0-2 [facility] Comment on above: Performed By: #### D CITLALY, LIP, CMPX, TROPI, BNP, CDP, PT #### [address] [place] [address] Tax Assistant: Sami Dominguez MD Eosinophils (Bld) [#/Vol] 0.08 10*3/uL Normal 0.00-0.44 [facility] Comment on above: Performed By: #### D CITLALY, LIP, CMPX, TROPI, BNP, CDP, PT #### [facility] [address] [place], [place] [address] Tax Assistant: Sami Dominguez MD Eosinophils/100 WBC (Bld) 1 % Normal 1-4 [facility] Comment on above: Performed By: #### D CITLALY, LIP, CMPX, TROPI, BNP, CDP, PT #### [facility] [address] [place], [place] [address] Tax Assistant: Sami Dominguez MD Immature granulocytes (Bld) [#/Vol] 0 % Normal 0 [facility] Comment on above: Performed By: #### D CITLALY, LIP, CMPX, TROPI, BNP, CDP, PT #### [facility] [address] [place], [facility] Tax Assistant: Sami Dominguez MD Lymphocytes (Bld) [#/Vol] 0.90 10*3/uL Low 1.10-3.70 [facility] Comment on above: Performed By: #### D CITLALY, LIP, CMPX, TROPI, BNP, CDP, PT #### [facility] [address] [place], [place] [address] Tax Assistant: Sami Dominguez MD Lymphocytes/100 WBC (Bld) 12 % Low 24-43 [facility] Comment on above: Performed By: #### D CITLALY, LIP, CMPX, TROPI, BNP, CDP, PT #### [facility] [address] [place], [facility] Tax Assistant: Sami Dominguez MD Monocytes (Bld) [#/Vol] 0.00 10*3/uL Low 0.10-1.20 [facility] Comment on above: Performed By: #### D CITLALY, LIP, CMPX, TROPI, BNP, CDP, PT #### [facility] [address] [place], [facility] Tax Assistant: Sami Dominguez MD Monocytes/100 WBC (Bld) 0 % Low 3-12 [facility] Comment on above: Performed By: #### D CITLALY, LIP, CMPX, TROPI, BNP, CDP, PT #### [facility] [address] [place], [facility]83 Tax Assistant: Sami Dominguez MD Morphology Geovany (Bld) [Interp] Normal Normal [facility] Comment on above: Performed By: #### D CITALLY, LIP, CMPX, TROPI, BNP, CDP, PT #### [address], [facility]83 Tax Assistant: Sami Dominguez MD Neutrophil (Seg) 87 % High 36-65 [facility] Comment on above: Performed By: #### D CITLALY, LIP, CMPX, TROPI, BNP, CDP, PT #### [address], [facility]83 Tax Assistant: Sami Dominguez MD Erythrocyte distribution width (RBC) [Ratio] 13.2 % Normal 11.8-14.4 [facility] Comment on above: Performed By: #### D CITLALY, LIP, CMPX, TROPI, BNP, CDP, PT #### [address], [facility]83 Tax Assistant: Sami Dominguez MD Hematocrit (Bld) [Volume fraction] 33.7 % Low 36.3-47.1 [facility] Comment on above: Performed By: #### D CITLALY, LIP, CMPX, TROPI, BNP, CDP, PT #### [facility] [address] [place], [facility]83 Tax Assistant: Sami Dominguez MD Hemoglobin (Bld) [Mass/Vol] 10.7 g/dL Low 11.9-15.1 [facility] Comment on above: Performed By: #### D CITLALY, LIP, CMPX, TROPI, BNP, CDP, PT #### [facility] [address] [place] [address] Tax Assistant: Sami Dominguez MD MCH (RBC) [Entitic mass] 30.2 pg Normal 25.2-33.5 [facility] Comment on above: Performed By: #### D CITLALY, LIP, CMPX, TROPI, BNP, CDP, PT #### [facility] [address] [place], [facility]83 Tax Assistant: Sami Dominguez MD MCHC (RBC) [Mass/Vol] 31.8 g/dL Normal 28.4-34.8 [facility] Comment on above: Performed By: #### D CITLALY, LIP, CMPX, TROPI, BNP, CDP, PT #### [address] [place], [facility]83 Tax Assistant: Sami Dominguez MD MCV (RBC) [Entitic vol] 95.2 fL Normal 82.6-102.9 [facility] Comment on above: Performed By: #### D CITLALY, LIP, CMPX, TROPI, BNP, CDP, PT #### [address], [facility]83 Tax Assistant: Sami Dominguez MD NRBC Automated 0.0 per 100 WBC Normal 0.0 [facility] Comment on above: Performed By: #### D CITLALY, LIP, CMPX, TROPI, BNP, CDP, PT #### [address] [place] [address] Tax Assistant: Sami Dominguez MD Platelet mean volume (Bld) [Entitic vol] 8.6 fL Normal 8.1-13.5 [facility] Comment on above: Performed By: #### D CITLALY, LIP, CMPX, TROPI, BNP, CDP, PT #### [facility] [address] [place], [place] [address] Tax Assistant: Sami Dominguez MD Platelets (Bld) [#/Vol] 335 10*3/uL Normal 138-453 [facility] Comment on above: Performed By: #### D CITLALY, LIP, CMPX, TROPI, BNP, CDP, PT #### [facility] [address] [place], [facility]83 Tax Assistant: Sami Dominguez MD RBC (Bld) [#/Vol] 3.54 10*6/uL Low 3.95-5.11 [facility] Comment on above: Performed By: #### D CITLALY, LIP, CMPX, TROPI, BNP, CDP, PT #### [facility] [address] [place], [place] [address] Tax Assistant: Sami Dominguez MD WBC (Bld) [#/Vol] 7.5 10*3/uL Normal 3.5-11.3 [facility] Comment on above: Performed By: #### D CITLALY, LIP, CMPX, TROPI, BNP, CDP, PT #### [facility] [address] [place], [facility]83 Tax Assistant: Sami Dominguez MD Auto Diff Performed NOT REPORTED Normal [facility] Comment on above: Performed By: #### D CITLALY, LIP, CMPX, TROPI, BNP, CDP, PT #### [facility] [address] [place], [facility]83 Tax Assistant: Sami Dominguez MD Platelets (Bld) [#/Vol] NOT REPORTED Normal [facility] Comment on above: Performed By: #### D CITLALY, LIP, CMPX, TROPI, BNP, CDP, PT #### [facility] [address] [place], [facility]83 Tax Assistant: Sami Dominguez MD RBC morphology finding Nom (Bld) NOT REPORTED Normal [facility] Comment on above: Performed By: #### D CITLALY, LIP, CMPX, TROPI, BNP, CDP, PT #### [facility] [address] [place], [place] [id number] Tax Assistant: Sami Dominguez MD WBC Morphology NOT REPORTED Normal [facility] Comment on above: Performed By: #### D CITLALY, LIP, CMPX, TROPI, BNP, CDP, PT #### [facility] [address] [place] [address] Tax Assistant: Sami Dominguez MD CTA CHEST ABDOMEN PELVIS [...] Yunier Yang MD 08/02/19 Final result Normal [facility] [place], [place] Incoming Radiant Results From [facility] - 08/02/2019 1:21 PM EDT EXAMINATION: CTA [...] recommended. Reference: J Am Danika Radiol 2013;10:675-681 [place] EXAMINATION: CTA OF THE CHEST, ABDOMEN [...] and caliber without aneurysmal dilatation or dissection. [place] No evidence for aneurysmal dilatation or dissection of the aorta or its branches. Findings most compatible with polycystic kidney disease. Subtle inflammation adjacent to the descending colon is suggestive of subtle colitis. No perforation or abscess formation. No free intraperitoneal air or fluid. 4.1 cm benign appearing ovarian cyst No follow-up imaging is recommended. Reference: J Am Danika Radiol 2013;10:675-681 [place] Comp Metabolic Pr/rfx MGon 1 (cont.) Normal [facility] Comment on above: Result Comment: Aver age GFR for 40-49 years old: 99 mL/min/1.73sq m Chronic Kidney Disease: <60 mL/min/1.73sq m Kidney failure: <15 mL/min/1.73sq m eGFR calculated using average adult body mass. Additional eGFR calculator available at: http://www.MaSpatule.com.Agavideo/multiple_crcl_2012.htm Performed By: #### D CITLALY, LIP, CMPX, TROPI, BNP, CDP, PT #### [facility] [address] [place] [address] [place] [address] Tax Assistant: Sami Dominguez MD Albumin [Mass/Vol] 4.4 g/dL Normal 3.5-5.2 [facility] Comment on above: Performed By: #### D CITLALY, LIP, CMPX, TROPI, BNP, CDP, PT #### [facility] [address] [place] [address] Tax Assistant: Sami Dominguez MD Albumin/Globulin [Mass ratio] 1.0 {ratio} Normal 1.0-2.5 [facility] Comment on above: Performed By: #### D CITLALY, LIP, CMPX, TROPI, BNP, CDP, PT #### [facility] [address] [place] [address] Tax Assistant: Sami Dominguez MD Alkaline Phos 98 U/L Normal 35-104 [facility] Comment on above: Performed By: #### D CITLALY, LIP, CMPX, TROPI, BNP, CDP, PT #### [facility] [address] [place], [place] [phone] Tax Assistant: Sami Dominguez MD ALT [Catalytic activity/Vol] 16 U/L Normal 5-33 [facility] Comment on above: Performed By: #### D CITLALY, LIP, CMPX, TROPI, BNP, CDP, PT #### [facility] [address] [place], [place] [phone] Tax Assistant: Sami Dominguez MD Anion gap [Moles/Vol] 18 mmol/L High 9-17 [facility] Comment on above: Performed By: #### D CITLALY, LIP, CMPX, TROPI, BNP, CDP, PT #### [facility] [address] [place], [place] [phone] Tax Assistant: Sami Dominguez MD AST [Catalytic activity/Vol] 18 U/L Normal <32 [facility] Comment on above: Performed By: #### D CITLALY, LIP, CMPX, TROPI, BNP, CDP, PT #### [facility] [address] [place], [place] [phone] Tax Assistant: Sami Dominguez MD Bilirubin Ql (U) 0.31 mg/dL Normal 0.3-1.2 [facility] Comment on above: Performed By: #### D CITLALY, LIP, CMPX, TROPI, BNP, CDP, PT #### [facility] [address] [place], [place] [phone] Tax Assistant: Sami Dominguez MD BUN/CRE Ratio 13 Normal 9-20 [facility] Comment on above: Performed By: #### D CITLALY, LIP, CMPX, TROPI, BNP, CDP, PT #### [facility] [address] [place], [place] [phone] Tax Assistant: Sami Dominguez MD Calcium [Mass/Vol] 9.7 mg/dL Normal 8.6-10.4 [facility] Comment on above: Performed By: #### D CITLALY, LIP, CMPX, TROPI, BNP, CDP, PT #### [facility] [address] [place] [address] Tax Assistant: Sami Dominguez MD Chloride [Moles/Vol] 95 mmol/L Low 98-107 [facility] Comment on above: Performed By: #### D CITLALY, LIP, CMPX, TROPI, BNP, CDP, PT #### [facility] [address] [place] [address] Tax Assistant: Sami Dominguez MD CO2 [Moles/Vol] 18 mmol/L Low 20-31 [facility] Comment on above: Performed By: #### D CITLALY, LIP, CMPX, TROPI, BNP, CDP, PT #### [facility] [address] [place] [address] Tax Assistant: Sami Dominguez MD Creatinine [Mass/Vol] 3.07 mg/dL High 0.50-0.90 [facility] Comment on above: Performed By: #### D CITLALY, LIP, CMPX, TROPI, BNP, CDP, PT #### [facility] [address] [place], [place] [phone] Tax Assistant: Sami Dominguez MD GFR, Amer 20 mL/min Low >60 [facility] Comment on above: Performed By: #### D CITLALY, LIP, CMPX, TROPI, BNP, CDP, PT #### [facility] [address] [place] [address] Tax Assistant: Sami Dominguez MD GFR,non Amer 17 mL/min Low >60 [facility] Comment on above: Performed By: #### D CITLALY, LIP, CMPX, TROPI, BNP, CDP, PT #### [facility] [address] [place] [address] Tax Assistant: Sami Dominguez MD Glucose [Mass/Vol] 89 mg/dL Normal 70-99 [facility] Comment on above: Performed By: #### D CITLALY, LIP, CMPX, TROPI, BNP, CDP, PT #### [facility] [address] [place] [address] Tax Assistant: Sami Dominguez MD Potassium [Moles/Vol] 3.9 mmol/L Normal 3.7-5.3 [facility] Comment on above: Performed By: #### D CITLALY, LIP, CMPX, TROPI, BNP, CDP, PT #### [facility] [address] [place], [place] [phone] Tax Assistant: Sami Dominguez MD Protein [Mass/Vol] 8.8 g/dL High 6.4-8.3 [facility] Comment on above: Performed By: #### D CITLALY, LIP, CMPX, TROPI, BNP, CDP, PT #### [facility] [address] [place] [address] Tax Assistant: Sami Dominguez MD Sodium [Moles/Vol] 131 mmol/L Low 135-144 [facility] Comment on above: Performed By: #### D CITLALY, LIP, CMPX, TROPI, BNP, CDP, PT #### [facility] [address] [place], [place] [phone] Tax Assistant: Sami Dominguez MD Staging: Normal [facility] Comment on above: Result Comment: Stag e 1: Some kidney damage normal GFR Stage 2: Mild kidney damage GFR 60-89 Stage 3: Moderate kidney damage GFR 30-59 Stage 4: Severe kidney damage GFR 15-29 Stage 5: Severe kidney damage GFR <15 ESRD - chronic treatment by dialysis or transplant Performed By: #### D CITLALY, LIP, CMPX, TROPI, BNP, CDP, PT #### [facility] [address] [place] [address] Tax Assistant: Sami Dominguez MD Urea nitrogen [Mass/Vol] 39 mg/dL High 6-20 [facility] Comment on above: Performed By: #### D CITLALY, LIP, CMPX, TROPI, BNP, CDP, PT #### [facility] [address] [place] [address] Tax Assistant: Sami Dominguez MD Comprehensive Metabolic Pane l w/ Reflex to MGon 08-02-2019 Albumin [Mass/Vol] 4.4 g/dL 3.5 - 5.2 g/dL [place] Albumin/Globulin [Mass ratio] 1.0 {ratio} [place] ALP [Catalytic activity/Vol] 98 U/L 35 - 104 U/L [place] ALT [Catalytic activity/Vol] 16 U/L 5 - 33 U/L [place] Anion gap [Moles/Vol] 18 mmol/L High 9 - 17 mmol/L [place] AST [Catalytic activity/Vol] 18 U/L <32 [place] Bilirubin Ql (U) 0.31 mg/dL 0.3 - 1.2 mg/dL [place] Bun/Cre Ratio 13 [place] Calcium [Mass/Vol] 9.7 mg/dL 8.6 - 10. 4 mg/dL [place] Chloride [Moles/Vol] 95 mmol/L Low 98 - 10 7 mmol/L [place] CO2 [Moles/Vol] 18 mmol/L Low 20 - 31 mmol/L [place] Creatinine [Mass/Vol] 3.07 mg/dL High 0.5 - 0.9 mg/dL [place] GFR 20 mL/min Low >60 [place] GFR Non- 17 mL/min Low >60 [place] Glucose [Mass/Vol] 89 mg/dL 70 - 99 mg/dL [place] Interpretation and review of laboratory results Abnormal [place] Potassium [Moles/Vol] 3.9 mmol/L 3.7 - 5.3 mmol/L [place] Protein [Mass/Vol] 8.8 g/dL High 6.4 - 8.3 g/dL [place] Sodium [Moles/Vol] 131 mmol/L Low 135 - 144 mmol/L [place] Urea nitrogen [Mass/Vol] 39 mg/dL High 6 - 20 mg/dL [place] D-Dimer Teston 08-02-2019 D-Dimer Test 1.15 mg/L FEU High 0.19-0.50 [facility] Comment on above: Result Comment: Elevated levels [...] value of 98%). Performed By: #### D CITLALY, LIP, CMPX, TROPI, BNP, CDP, PT #### [facility] [address] [place] [address] Tax Assistant: Sami Dominguez MD D-Dimer, Quantitativeon 07-07 D-Dimer, Quant 1.15 [place] Comment on above: Elevated levels of [...] Interpretation and review of laboratory results Abnormal [place] Lactate, Sepsison 08-02-2019 Lactic Acid, Sepsis 3.6 mmol/L High 0.5-1.9 [facility] Comment on above: Performed By: #### L ACDS #### [facility] [address] [place] [address] Tax Assistant: Sami Dominguez MD Lactic Acid,Sep Wbld NOT REPORTED Normal 0.5-1.9 [facility] Comment on above: Performed By: #### L ACDS #### [facility] [address] [place] [address] Tax Assistant: Sami Dominguez MD Interpretation and review of laboratory results Abnormal [place] Lactic Acid, Sepsis 3.6 mmol/L High 0.5 - 1. 9 mmol/L [place] Lactic Acid, Sepsis, Whole Blood NOT REPORTED 0.5 - 1.9 mmol/L [place] Lactic Acidon 08-02-2019 Lactate [Moles/Vol] 1.0 mmol/L Normal 0.5-2.2 [facility] Comment on above: Performed By: #### D CITLALY, LIP, CMPX, TROPI, BNP, CDP, PT #### [facility] [address] [place] [address] Tax Assistant: Sami Dominguez MD Lactate [Moles/Vol] NOT REPORTED Normal 0.7-2.1 [facility] Comment on above: Performed By: #### D CITLALY, LIP, CMPX, TROPI, BNP, CDP, PT #### [facility] [address] [place] [address] Tax Assistant: Sami Dominguez MD Lactic Acid, Plasmaon 2018 Lactate [Moles/Vol] 1 mmol/L 0.5 - 2. 2 mmol/L [place] Lactic Acid, Whole Blood NOT REPORTED 0.7 - 2.1 mmol/L [place] Lipaseon 08-02-2019 Lipase [Catalytic activity/Vol] 38 U/L Normal 13-60 [facility] Comment on above: Performed By: #### D CITLALY, LIP, CMPX, TROPI, BNP, CDP, PT #### [facility] [address] [place] [address] Tax Assistant: Sami Dominguez MD Lipase [Catalytic activity/Vol] 38 U/L 13 - 60 U/L [place] Metabolic Panelon 08-02-2019 GFR/1.73 sq M predicted among non-blacks MDRD (S/P/Bld) [Vol rate/Area] [place] Comment on above: Stage 1: Some [...] body mass. Additional eGFR calculator available at: http://www.[employer]/multiple_crcl_2012.htm Microscopic Urinalysison Amorphous, UA NOT REPORTED None [place] Bacteria, UA 1+ Abnormal None [place] Casts UA NOT REPORTED /LPF [place] Crystals UA NOT REPORTED None /HPF [place] Epithelial Cells UA 2 TO 5 [place] Interpretation and review of laboratory results Abnormal [place] Mucus, UA NOT REPORTED None [place] Other Observations UA NOT REPORTED NOT REQ. M [place] RBC (U) [#/Vol] None [place] Renal Epithelial, Urine NOT REPORTED 0 /HPF [place] Trichomonas, UA NOT REPORTED None [place] WBC, UA 50 TO 100 [place] Yeast, UA NOT REPORTED None [place] PTon 08-02-2019 INR Coag (PPP) [Relative time] 1.0 {INR} Normal 0.9-1.2 [facility] Comment on above: Performed By: #### D CITLALY, LIP, CMPX, TROPI, BNP, CDP, PT #### [facility] [address] [place] [address] Tax Assistant: Sami Dominguez MD PT Coag (PPP) [Time] 10.0 s Normal 9.7-12.2 [facility] Comment on above: Performed By: #### D CITLALY, LIP, CMPX, TROPI, BNP, CDP, PT #### [facility] [address] [place], [place] [phone] Tax Assistant: Sami Dominguez MD Protime-INRon 08-02-2019 INR Coag (PPP) [Relative time] 1.0 {INR} [place] PT Coag (PPP) [Time] 10 s [place] Troponinon 08-02-2019 Troponin I.cardiac [Mass/Vol] ng/mL Normal <0.03 [facility] Comment on above: Result Comment: Trop onin T results cannot be compared to Troponin-I results. Performed By: #### D CITLALY, LIP, CMPX, TROPI, BNP, CDP, PT #### [facility] [address] [place] [address] Tax Assistant: Sami Dominguez MD Troponin I.cardiac [Mass/Vol] Normal [facility] Comment on above: Result Comment: Refe rence [...] LIP, CMPX, TROPI, BNP, CDP, PT #### [facility] [address] [place] [address] Tax Assistant: Sami Dominguez MD Troponin I.cardiac [Mass/Vol] NOT REPORTED Normal 0-14 [facility] Comment on above: Performed By: #### D CITLALY, LIP, CMPX, TROPI, BNP, CDP, PT #### [facility] [place] [address] Tax Assistant: Sami Dominguez MD Troponin I.cardiac [Mass/Vol] [place] Comment on above: Reference Range: <0.03 [...] diagnosis. Troponin T.cardiac [Mass/Vol] ug/L <0.03 ng/mL [place] Comment on above: Troponin T results c annot be compared to Troponin-I results. Troponin, High Sensitivity NOT REPORTED 0 - 14 ng/L [place] Troponin I.cardiac [Mass/Vol] ng/mL Normal <0.03 [facility] Comment on above: Result Comment: Trop onin T results cannot be compared to Troponin-I results. Performed By: #### D CITLALY, LIP, CMPX, TROPI, BNP, CDP, PT #### [address] [place] [address] Tax Assistant: Sami Dominguez MD Troponin I.cardiac [Mass/Vol] Normal [facility] Comment on above: Result Comment: Refe rence [...] LIP, CMPX, TROPI, BNP, CDP, PT #### [address] [place] [address] Tax Assistant: Sami Dominguez MD Troponin I.cardiac [Mass/Vol] NOT REPORTED Normal 0-14 [facility] Comment on above: Performed By: #### D CITLALY, LIP, CMPX, TROPI, BNP, CDP, PT #### [facility] [address] [place] [address] Tax Assistant: Sami Dominguez MD Troponin I.cardiac [Mass/Vol] [place] Comment on above: Reference Range: <0.03 [...] diagnosis. Troponin T.cardiac [Mass/Vol] ug/L <0.03 ng/mL [place] Comment on above: Troponin T results c annot be compared to Troponin-I results. Troponin, High Sensitivity NOT REPORTED 0 - 14 ng/L [place] UA w/Reflex Cultureon 2018 Acetoacetic Acid,Ur Negative Normal [facility] Comment on above: Performed By: #### D CITLALY, LIP, CMPX, TROPI, BNP, CDP, PT #### [facility] [address] [place] [address] Tax Assistant: Sami Dominguez MD Bilirubin, SemiQt,Ur Negative [facility] Comment on above: Performed By: #### D CITLALY, LIP, CMPX, TROPI, BNP, CDP, PT #### [facility] [address] [place], [place] [phone] Tax Assistant: Sami Dominguez MD Color (U) YELLOW Normal [facility] Comment on above: Performed By: #### D CITLALY, LIP, CMPX, TROPI, BNP, CDP, PT #### [facility] [address] [place] [address] Tax Assistant: Sami Dominguez MD Glucose Ql (U) Negative Normal [facility] Comment on above: Performed By: #### D CITLALY, LIP, CMPX, TROPI, BNP, CDP, PT #### [facility] [address] [place] [address] Tax Assistant: Sami Dominguez MD Hemoglobin, Ur 1+ Abnormal NEG [facility] Comment on above: Performed By: #### D CITLALY, LIP, CMPX, TROPI, BNP, CDP, PT #### [facility] [address] [place], [facility] Tax Assistant: Sami Dominguez MD Leukocyte esterase Test strip Ql (U) MODERATE Abnormal NEG [facility] Comment on above: Performed By: #### D CITLALY, LIP, CMPX, TROPI, BNP, CDP, PT #### [address] [place] [address] Tax Assistant: Sami Dominguez MD Nitrite,Ur Negative Normal NEG [facility] Comment on above: Performed By: #### D CITLALY, LIP, CMPX, TROPI, BNP, CDP, PT #### [address] [place] [address] Tax Assistant: Sami Dominguez MD pH (U) 6.0 [pH] Normal 5.0-9.0 [facility] Comment on above: Performed By: #### D CITLALY, LIP, CMPX, TROPI, BNP, CDP, PT #### [address] [place], [facility] Tax Assistant: Sami Dominguez MD Protein Ql (U) TRACE Abnormal NEG [facility] Comment on above: Performed By: #### D CITLALY, LIP, CMPX, TROPI, BNP, CDP, PT #### [facility] [address] [place] [address] Tax Assistant: Sami Dominguez MD Specific gravity (U) [Rel density] 1.010 Normal 1.010-1.020 [facility] Comment on above: Performed By: #### D CITLALY, LIP, CMPX, TROPI, BNP, CDP, PT #### [facility] [address] [place] [address] Tax Assistant: Sami Dominguez MD Turbidity CLEAR Normal CLEAR [facility] Comment on above: Performed By: #### D CITLALY, LIP, CMPX, TROPI, BNP, CDP, PT #### [facility] [address] [place] [address] Tax Assistant: Sami Dominguez MD Urobilinogen,Ur Normal Normal NORM [facility] Comment on above: Performed By: #### D CITLALY, LIP, CMPX, TROPI, BNP, CDP, PT #### [facility] [address] [place] [address] Tax Assistant: Sami Dominguez MD Comment NOT REPORTED Normal [facility] Comment on above: Performed By: #### D CITLALY, LIP, CMPX, TROPI, BNP, CDP, PT #### [facility] [address] [place] [address] [place] [address] Tax Assistant: Sami Dominguez MD Urinalysis Reflex to Culture on 08-02-2019 Bilirubin Urine Negative NEGATIVE [facility], [place] Color, UA YELLOW YELLOW [place] Glucose, Ur Negative NEGATIVE [place] Interpretation and review of laboratory results Abnormal [place] Ketones Ql (U) Negative NEGATIVE [place] Leukocyte esterase Test strip Ql (U) MODERATE Abnormal NEGATIVE [facility], [place] Nitrite, Urine Negative NEGATIVE [place] pH, UA 6.0 [place] Protein (U) [Mass/Vol] TRACE Abnormal NEGATIVE [facility], [place] Specific [place], UA 1.010 [facility], [place] Turbidity UA CLEAR CLEAR [place] Urinalysis Comments NOT REPORTED [facility], [place] Urine Hgb 1+ Abnormal NEGATIVE [facility], [place] Urobilinogen, Urine Normal Normal [place] Urinalysis,Microon 9 ----- Normal [facility] Comment on above: Performed By: #### D CITLALY, LIP, CMPX, TROPI, BNP, CDP, PT #### [facility] [address] [place] [address] Tax Assistant: Sami Dominguez MD Bacteria LM.HPF (Urine sed) [#/Area] 1+ Abnormal NONE [facility] Comment on above: Performed By: #### D CITLALY, LIP, CMPX, TROPI, BNP, CDP, PT #### [facility] [address] [place], [place] [phone] Tax Assistant: Sami Dominguez MD Epithelial cells LM.HPF (Urine sed) [#/Area] 2 TO 5 Normal 0-25 [facility] Comment on above: Performed By: #### D CITLALY, LIP, CMPX, TROPI, BNP, CDP, PT #### [facility] [address] [place], [place] [address] Tax Assistant: Sami Dominguez MD RBC (U) [#/Vol] None Normal 0-2 [facility] Comment on above: Performed By: #### D CITLALY, LIP, CMPX, TROPI, BNP, CDP, PT #### [facility] [address] [place], [place] [phone] Tax Assistant: Sami Dominguez MD WBC (U) [#/Vol] 50 TO 100 Normal 0-5 [facility] Comment on above: Performed By: #### D CITLALY, LIP, CMPX, TROPI, BNP, CDP, PT #### [facility] [address] [place], [place] [phone] Tax Assistant: Sami Dominguez MD Amorphous sediment LM Ql (Urine sed) NOT REPORTED Normal [facility] Comment on above: Performed By: #### D CITLALY, LIP, CMPX, TROPI, BNP, CDP, PT #### [facility] [address] [place], [place] [phone] Tax Assistant: Sami Dominguez MD Casts LM.LPF (Urine sed) [#/Area] NOT REPORTED Normal [facility] Comment on above: Performed By: #### D CITLALY, LIP, CMPX, TROPI, BNP, CDP, PT #### [facility] [address] [place] [address] Tax Assistant: Sami Dominguez MD Crystals LM Nom (Urine sed) NOT REPORTED Normal [facility] Comment on above: Performed By: #### D CITLALY, LIP, CMPX, TROPI, BNP, CDP, PT #### [facility] [address] [place] [address] Tax Assistant: Sami Dominguez MD Epithelial, Renal NOT REPORTED Normal [address] [place] [address] Comment on above: Performed By: #### D CITLALY, LIP, CMPX, TROPI, BNP, CDP, PT #### [facility] [address] [place] [address] [place] [address] Tax Assistant: Sami Dominguez MD Mucus Strands NOT REPORTED Normal [facility] Comment on above: Performed By: #### D CITLALY, LIP, CMPX, TROPI, BNP, CDP, PT #### [address] [place] [address] Tax Assistant: Sami Dominguez MD Other Observations NOT REPORTED Normal NREQ [facility] Comment on above: Performed By: #### D CITLALY, LIP, CMPX, TROPI, BNP, CDP, PT #### [facility] [address] [place] [address] Tax Assistant: Sami Dominguez MD Trichomonas NOT REPORTED Normal [facility] Comment on above: Performed By: #### D CITLALY, LIP, CMPX, TROPI, BNP, CDP, PT #### [facility] [address] [place] [address] Tax Assistant: Sami Dominguez MD Yeast LM Ql (Urine sed) NOT REPORTED Normal [facility] Comment on above: Performed By: #### D CITLALY, LIP, CMPX, TROPI, BNP, CDP, PT #### [facility] [address] [place] [address] Tax Assistant: Sami Dominguez MD XR CHEST PORTABLEon 08-02-20 [...] Cullen Ngo MD 08/02/19 Final result Normal [facility] EXAMINATION: ONE XRA Y VIEW OF THE CHEST 08/02/2019 12:59 pm COMPARISON: None. HISTORY: ORDERING SYSTEM PROVIDED HISTORY: CP TECHNOLOGIST PROVIDED HISTORY: CP FINDINGS: Heart size and pulmonary vessels are within normal limits. Lungs are clear. No focal infiltrates or significant pleural effusions are seen. There is no acute osseous abnormality. Monitor leads overlie the chest. [place] No acute cardiopulmo nary process. [place] Moshe, [facility] Incoming Radiant Results From [employer] - 08/02/2019 1:10 PM EDT EXAMINATION: ONE [...] the chest. IMPRESSION: No acute cardiopulmonary process. [place] Vital Signs Date Time Vital Sign Value Performing Clinician Facility 07-30-2022 17:40-0400 Body height 157.48 cm Yaneth Toni Other [facility] Other 07-30-2022 17:40-0400 Body mass index (BMI) [Ratio] 36.69 kg/m2 Yaneth Toni Other [facility] Other 07-30-2022 17:40-0400 Body temperature 97.4 [degF] Yaneth Toni Other [facility] Other 07-30-2022 17:40-0400 Body weight 90.99 kg Yaneth Toni Other [facility] Other 07-30-2022 17:40-0400 Diastolic blood pressure 85 mm[Hg] Yaneth Toni Other [facility] Other 07-30-2022 17:40-0400 Respiratory rate 18 /min Yaneth Toni Other [facility] Other 07-30-2022 17:40-0400 SaO2% (BldA) [Mass fraction] 99 % Yaneth Toni Other [facility] Other 07-30-2022 17:40-0400 Systolic blood pressure 124 mm[Hg] Yaneth Toni Other [facility] Other 07-03-2022 09:45-0400 Body height 157.48 cm Estefania Vo Other [facility] Other 07-03-2022 09:45-0400 Body mass index (BMI) [Ratio] 36.76 kg/m2 Estefania Vo Other [facility] Other 07-03-2022 09:45-0400 Body temperature 97 [degF] Estefania Vo Other [facility] Other 07-03-2022 09:45-0400 Body weight 91.17 kg Estefania Vo Other [facility] Other 07-03-2022 09:45-0400 Diastolic blood pressure 60 mm[Hg] Estefania Vo Other [facility] Other 07-03-2022 09:45-0400 SaO2% (BldA) [Mass fraction] 99 % Estefania Vo Other [facility] Other 07-03-2022 09:45-0400 Systolic blood pressure 110 mm[Hg] Estefania Vo Other [facility] Other 06-20-2022 16:10-0400 Diastolic blood pressure 68 mm[Hg] DO Ming Espinoza Work Phone: [facility] 06-20-2022 16:10-0400 Heart rate 69 /min DO Ming Espinoza Work Phone: [facility] 06-20-2022 16:10-0400 Respiratory rate 18 /min DO Ming Espinoza Work Phone: [facility] 06-20-2022 16:10-0400 SaO2% (BldA) [Mass fraction] 100 % DO Ming Espinoza Work Phone: [facility] 06-20-2022 16:10-0400 Systolic blood pressure 126 mm[Hg] DO Ming Espinoza Work Phone: [facility] 06-20-2022 13:15-0400 Body height 157.48 cm DO Ming Espinoza Work Phone: [facility] 06-20-2022 13:15-0400 Body temperature 98.6 [degF] DO Ming Espinoza Work Phone: [facility] 06-20-2022 13:15-0400 Body weight 91.5 kg DO Ming Espinoza Work Phone: [facility] 06-18-2022 10:45-0400 Diastolic blood pressure 79 mm[Hg] DO Ming Espinoza Work Phone: [facility] 06-18-2022 10:45-0400 Heart rate 66 /min DO Ming Espinoza Work Phone: [facility] 06-18-2022 10:45-0400 Respiratory rate 16 /min DO Ming Espinoza Work Phone: [facility] [facility] 10:45-0400 SaO2% (BldA) [Mass fraction] 100 % DO Ming Espinoza Work Phone: [facility] 06-18-2022 10:45-0400 Systolic blood pressure 130 mm[Hg] DO Ming Espinoza Work Phone: [facility] 06-18-2022 08:08-0400 Body mass index (BMI) [Ratio] 37.8 kg/m2 DO Ming Espinoza Work Phone: [facility] 06-18-2022 07:41-0400 Body height 157.48 cm DO Ming Espinoza Work Phone: [facility] 06-18-2022 07:41-0400 Body weight 93.89 kg DO Ming Espinoza Work Phone: [facility] 06-18-2022 06:26-0400 Body temperature 98.5 [degF] DO Ming Espinoza Work Phone: [facility] 05-30-2022 11:00-0400 Body height 157.48 cm Jesus Parham Other [facility] Other 05-30-2022 11:00-0400 Body mass index (BMI) [Ratio] 36.76 kg/m2 Jesus Parham Other [facility] Other 05-30-2022 11:00-0400 Body temperature 97.6 [degF] Jesus Parham Other [facility] Other 05-30-2022 11:00-0400 Body weight 91.17 kg Jesus Parham Other [facility] Other 05-30-2022 11:00-0400 Diastolic blood pressure 76 mm[Hg] Jesus Parham Other [facility] Other 05-30-2022 11:00-0400 SaO2% (BldA) [Mass fraction] 98 % Jesus Parham Other [facility] Other 05-30-2022 11:00-0400 Systolic blood pressure 128 mm[Hg] Jesus Dione Other [facility] Other 05-02-2022 14:40-0400 Body height 157.48 cm Yaneth Toni Other [employer] Other 05-02-2022 14:40-0400 Body mass index (BMI) [Ratio] 36.76 kg/m2 Yaneth Toni Other [facility] Other 05-02-2022 14:40-0400 Body temperature 97.7 [degF] Yaneth Toni Other [facility] Other 05-02-2022 14:40-0400 Body weight 91.17 kg Yaneth Toni Other [facility] Other 05-02-2022 14:40-0400 Diastolic blood pressure 88 mm[Hg] Yaneth Toni Other [facility] Other 05-02-2022 14:40-0400 Respiratory rate 18 /min Yaneth Toni Other [facility] Other 05-02-2022 14:40-0400 SaO2% (BldA) [Mass fraction] 98 % Yaneth Toni Other [facility] Other 05-02-2022 14:40-0400 Systolic blood pressure 121 mm[Hg] Yaneth Toni Other [facility] Other 04-30-2022 10:10-0400 Body height 157.48 cm Dipika Shantell Other [facility] Other 04-30-2022 10:10-0400 Body mass index (BMI) [Ratio] 37.86 kg/m2 Dipika Shantell Other [facility] Other 04-30-2022 10:10-0400 Body temperature 97.4 [degF] Dipika Shantell Other [facility] Other 04-30-2022 10:10-0400 Body weight 93.9 kg Dipika Shantell Other [facility] Other 04-30-2022 10:10-0400 Diastolic blood pressure 80 mm[Hg] Dipika Shantell Other [facility] Other 04-30-2022 10:10-0400 Respiratory rate 16 /min Dipika Shantell Other [employer] Other 04-30-2022 10:10-0400 SaO2% (BldA) [Mass fraction] 100 % Dipika Stinson Other [facility] Other 04-30-2022 10:10-0400 Systolic blood pressure 117 mm[Hg] Dipika Stinson Other [facility] Other 04-01-2022 09:13-0400 Diastolic blood pressure 62 mm[Hg] DO Ming Espinoza Work Phone: [facility] 04-01-2022 09:13-0400 Heart rate 83 /min DO Ming Espinoza Work Phone: [facility] 04-01-2022 09:13-0400 Respiratory rate 16 /min DO Ming Espinoza Work Phone: [facility] 04-01-2022 09:13-0400 SaO2% (BldA) [Mass fraction] 97 % DO Ming Espinoza Work Phone: [facility] 04-01-2022 09:13-0400 Systolic blood pressure 101 mm[Hg] DO Minglizz Espinoza Work Phone: [facility] 04-01-2022 07:23-0400 Body height 157.48 cm DO Ming Espinoza Work Phone: [facility] 04-01-2022 07:23-0400 Body mass index (BMI) [Ratio] 37.8 kg/m2 DO Ming Espinoza Work Phone: [facility] 04-01-2022 07:23-0400 Body temperature 97.8 [degF] DO Minglizz Espinoza Work Phone: [facility] 04-01-2022 07:23-0400 Body weight 93.89 kg DO Ming Espinoza Work Phone: [facility] 12-06-2021 16:20-0500 Body height 157.48 cm Yaneth Toni Other [employer] Other 12-06-2021 16:20-0500 Body mass index (BMI) [Ratio] 37.86 kg/m2 Yaneth Toni Other [facility] Other 12-06-2021 16:20-0500 Body weight 93.9 kg Yaneth Toni Other [facility] Other 12-06-2021 16:20-0500 Diastolic blood pressure 89 mm[Hg] Yaneth Toni Other [facility] Other 12-06-2021 16:20-0500 Respiratory rate 18 /min Yaneth Toni Other [facility] Other 12-06-2021 16:20-0500 SaO2% (BldA) [Mass fraction] 97 % Yaneth Toni Other [facility] Other 12-06-2021 16:20-0500 Systolic blood pressure 134 mm[Hg] Yaneth Toni Other [employer] Other 08-02-2019 16:35-0400 Body Temperature 99.3 [degF] [employer] [facility], [place] 08-02-2019 16:27-0400 Pulse (Heart Rate) 110 /min [facility] [place] 08-02-2019 16:27-0400 Pulse Oximetry 98 % [facility] [place] 08-02-2019 16:27-0400 Respiratory Rate 14 /[facility] [place] [place] [facility] 16:16-0400 BP Diastolic 56 mm[Hg] [facility] [place] 08-02-2019 16:16-0400 BP Systolic 97 mm[Hg] Vidal [employer] [facility] [place] 08-02-2019 14:59-0400 BMI (Body Mass Index) 37.79 kg/m2 Vidal Peg[facility] 08-02-2019 14:59-0400 Body weight 90.72 kg Vidal Peguero [facility] [place] 08-02-2019 14:59-0400 Height 154.9 cm Vidal Peguero [facility] , [place] Encounters Encounter Date Encounter Type Care Provider Facility Start: 11-06-2023 End: 11-06-2023 ambulatory Ming Espinoza Facility:[facility] Start: 11-06-2023 End: 11-06-2023 ambulatory DO Ming Espinoza Work Phone: [facility] Work Phone: Start: 11-06-2023 End: 11-06-2023 Patient encounter procedure DO Ming Espinoza Work Phone: [facility] [address] Work Phone: Start: 10-13-2023 End: 10-13-2023 ambulatory MING ESPINOZA Not Available Start: 09-01-2023 End: 09-01-[address] [facility] Start: 08-26-[address] [facility] Start: 07-30-2023 End: 07-30-2023 ambulatory Ming Espinoza Facility:[facility] Start: 06-28-[address] [facility] Start: 05-29-[address] [facility] Start: 04-30-[address] [facility] Start: 04-16-2023 End: 04-16-2023 ambulatory SUJIT [facility] Start: 03-31-[address] [facility] Start: 02-24-[address] [facility] Start: 02-03-2023 End: 02-03-[address] [facility] Start: 02-01-[address] [facility] Start: 01-17-[address] [facility] Start: 01-09-[address] [facility] Start: 01-01-[address] [facility] Start: 12-25-2022 End: 12-25-[address] [facility] Start: 12-06-[address] [facility] Start: 11-29-2022 End: 11-29-[address] [facility] Start: 11-19-[address] [facility] Start: 11-08-2022 ambulatory SUJIT MONTERROSO [facility] Start: 11-06-[address] [facility] Start: 11-06-2022 Encounter for other preprocedural examination [facility] Start: 10-23-2022 End: 10-23-[address] [facility] Start: 10-15-2022 End: 10-15-2022 ambulatory SREE [facility] Start: 10-08-[address] [facility] Start: 07-30-2022 End: 07-30-2022 ambulatory Yaneth Toni Other [employer] Other Start: 07-30-2022 Office outpatient vi sit 25 minutes Yaneth Toni [facility] Start: 07-29-2022 End: 07-30-2022 ambulatory YANETH TONI Facility: Start: 07-16-2022 End: 07-16-2022 ambulatory DO Ming Espinoza Work Phone: [facility] Work Phone: Start: 07-16-2022 End: 07-16-2022 Patient encounter procedure DO Ming Espinoza Work Phone: [facility] Start: 07-03-2022 End: 07-03-2022 ambulatory Estefania Vo Other [facility] Other Start: 07-03-2022 Follow-up encounter Estefania Camarillogary [facility] Start: 06-20-2022 End: 06-20-2022 ambulatory Jesus Parham Other [employer] Other Start: 06-20-2022 Telephone encounter Jesus adler [facility] Start: 06-20-2022 End: 06-20-2022 Emergency department patient visit DO Ming Espinoza Work Phone: [facility]-Emergency Room Start: 06-18-2022 End: 06-18-2022 Admission to same day surgery center DO Ming Espinoza Work Phone: [facility] Start: 06-14-2022 End: 06-14-2022 Patient encounter procedure DO Ming Espinoza Work Phone: [facility]-Pre-Surgical Testing Start: 06-06-2022 End: 06-07-[address] BRINDA CHAMPION Facility: Start: 06-05-2022 End: 06-05-2022 Patient encounter procedure DO Minglizz Espinoza Work Phone: [facility]Pre-Surgical Testing Start: 06-03-2022 End: 06-03-2022 ambulatory Jesus aPrham Other [employer] Other Start: 06-03-2022 Encounter for other preprocedural examination Jesus Parham [facility] Start: 06-03-2022 Telephone encounter Jesus adler [facility] Start: 05-30-2022 End: 05-30-2022 ambulatory Jesus Parham Other [facility] Other Start: 05-30-2022 [facility] visit new patient Jesus Montanez chalo [facility] Start: 05-30-2022 End: 05-30-2022 Patient encounter procedure DO Ming Espinoza Work Phone: [facility]Ultrasound [facility] Start: 05-29-[address] BLAKE CHAMPION [facility] ity:[facility]1 Start: 05-02-2022 End: 05-02-2022 ambulatory Yaneth Toni Other [employer] Other Start: 05-02-2022 Office outpatient vi sit 25 minutes Yaneth Toni [facility] Start: 04-30-2022 End: 04-30-2022 ambulatory Dipika Stinson Other [employer] Other Start: 04-30-2022 Office outpatient vi sit 15 minutes Dipika Stinson [facility] Start: 04-30-2022 Encounter for preprocedural laboratory examination YANETH MUÑOZ [facility] Start: 04-29-2022 Encounter for other preprocedural examination DR DOCTOR ALEJANDRO [facility] Start: 04-27-2022 End: 04-28-2022 Encounter for other preprocedural examination DR MING ESPINOZA Facility:[facility] Start: 04-27-2022 End: 04-28-[address] MING ESPINOZA Facility:[facility] Start: 04-27-2022 End: 04-28-2022 Encounter for preprocedural laboratory examination YANETH TONI Facility:[facility] Start: 04-03-2022 Encounter for other specified special examinations DR DOCTOR ALEJANDRO [facility] Start: 04-01-2022 End: 04-01-2022 Admission to same day surgery center DO Ming Espinoza Work Phone: [facility] Start: 03-29-2022 End: 03-30-[address] DOCTOR ALEJANDRO Facility:[facility] Start: 03-29-2022 End: 03-30-2022 Encounter for other specified special examinations DR DOCTOR ALEJANDRO Facility:[facility] Start: 03-28-2022 End: 03-28-2022 Patient encounter procedure DO Ming Espinoza Work Phone: [facility]Pre-Surgical Testing Start: 02-26-2022 End: 02-26-2022 ambulatory Shabbir Jones Other [employer] Other Start: 02-26-2022 Telephone encounter Shabbir VELAZQUEZ [facility] Start: 12-06-2021 End: 12-06-2021 ambulatory Yaneth Toni Other [employer] Other Start: 12-06-2021 Office outpatient vi sit 25 minutes Yaneth Toni [facility] Start: 12-03-2021 End: 12-04-2021 ambulatory YANETH TONI Facility:[facility] Start: 09-01-2021 End: 09-02-[address] MING ESPINOZA Facility:[facility] Start: 08-02-2019 End: 08-02-2019 Emergency department patient visit [facility] Start: 08-02-2019 End: 08-02-2019 Emergency department patient visit [facility] Work Phone: [facility] ED Comment on above: Acute sepsis (HCC) ( Primary Dx); Acute cystitis without hematuria; Chronic renal failure, stage 4 (severe) (HCC); Polycystic kidney disease Procedures Date Procedure Procedure Detail Performing Clinician Start: 07-16-2022 Screening mammograph y of bilateral breasts DO Ming Espinoza Work Phone: Start: 06-18-2022 Arteriovenous fistulization DO Ming Espinoza Work Phone: Start: 05-30-2022 Ultrasound (US) dopp ler flow mapping of vein of upper limb DO Ming Espinoza Work Phone: Start: 04-01-2022 Screening colonoscopy D O Ming Espinoza Work Phone: Start: 08-02-2019 Assay of lactate VIDAL KAITLIN Start: 08-02-2019 Assay of troponin quantitative VIDAL KAITLIN Start: 08-02-2019 Assay of lactate Vidal Kaitlin Work Phone: Start: 08-02-2019 Assay of troponin quantitative Vidal Kaitlin Work Phone: Start: 08-02-2019 Culture bacterial quanttative [...] 08-02-2019 INITIATE OXYGEN THER APY PROTOCOL VIDAL KAITLIN Start: 08-02-2019 Ecg routine ecg w/le ast 12 lds w/i&r VIDAL KAITLIN Start: 08-02-2019 Urinalysis microscopic only Vidal Kaitlin Work Phone: Start: 08-02-2019 Urnls dip stick/tabl et rgnt auto w/o microscopy Vidal Kaitlin Work Phone: Start: 08-02-2019 Radiologic exam ches t single view Vidal Kaitlin Work Phone: Start: 08-02-2019 Ct angiography chest w/contrast/noncontrast Vidal Kaitlin Work Phone: Start: 08-02-2019 Assay of lipase Vidal W eese Work Phone: Start: 08-02-2019 Assay of troponin quantitative Vidal Kaitlin Work Phone: Start: 08-02-2019 Blood count complete auto&auto difrntl wbc Vidal Kaitlin Work Phone: Start: 08-02-2019 Fibrin dgradj produc ts d-dimer quantitative Vidal Madrigal Work Phone: Start: 08-02-2019 LACTATE, SEPSIS Vidal lane Work Phone: Start: 08-02-2019 Natriuretic peptide Letha Madrigal Work Phone: Start: 08-02-2019 Prothrombin time Vidal Madrigal Work Phone: Start: 08-02-2019 INITIATE OXYGEN THER APY PROTOCOL Vidal Madrigal Work Phone: Start: 08-02-2019 Ecg routine ecg w/le ast 12 lds w/i&r Vidal Madrigal Work Phone: SARS Antigen (LFIA) DO Angy Espinoza Work Phone: Plan of Treatment Date Care Activity Detail Author Start: 11-06-2023 [facility] Start: 06-18-2022 [facility] Start: 06-18-2022 [facility] Start: 04-01-2022 [facility] Work Phone: Start: 06-06-2019 Influenza vaccination Flu vaccine (# 1) [place], [place] Start: 2015 Lipid screen Lipid screen [place], [place] Start: 1996 Cervical cancer screen Cervical canc er screen [place], [place] Start: 1994 DTaP/Tdap/Td vaccine (1 - Tdap) DTaP/Tdap/Td vaccine (1 - Tdap) [place], [place] Start: 1990 HIV screen HIV screen [place], [place] Start: 1975 Creatinine monitoring Creatinine mon itoring [place], [place] Start: 1975 Potassium monitoring Potassium monit [place]ing [place] End: 08-02-2019 Bacteria identified Cx Nom (U) Urine Culture Microbiology STAT One Time for 1 Occurrences starting 08/02/2019 until 08/02/2019 [place] Comment on above: One Time for 1 Occur rences starting 08/02/2019 until 08/02/2019 Bacteria identified Cx Nom (U) Urine Culture Microbiology STAT 08/02/2019 1:00 PM EDT [place] End: 08-02-2019 Culture blood #1 Culture blood #1 Microbiology STAT One Time for 1 Occurrences starting 08/02/2019 until 08/02/2019 [place] Comment on above: One Time for 1 Occur rences starting 08/02/2019 until 08/02/2019 End: 08-02-2019 Culture blood #2 Culture blood #2 Microbiology STAT One Time for 1 Occurrences starting 08/02/2019 until 08/02/2019 [place] Comment on above: One Time for 1 Occur rences starting 08/02/2019 until 08/02/2019 EKG 12 Lead EKG 12 Lead ECG STAT 08/02/2019 12:25 PM EDT [place] Homogenous nuclear A b pattern [Titer] in Serum [facility] Initiate Oxygen Ther apy Protocol Initiate Oxygen Therapy Protocol Respiratory Care Routine Daily until discontinued starting 08/02/2019, 2 completed [place] Comment on above: Daily until disconti nued starting 08/02/2019, 2 completed End: 08-02-2019 Lactate, Sepsis Lactate, Sepsis Lab Timed Now Then Every 2hr for 2 Occurrences starting 08/02/2019 until 08/02/2019, 1 completed [place] Comment on above: Now Then Every 2hr f or 2 Occurrences starting 08/02/2019 until 08/02/2019, 1 completed Nuclear Ab [Titer] i n Serum [facility] Patient Education [facility] Work Phone: Patient referral [facility] Work Phone: Potassium [Moles/vol ume] in Serum or Plasma [facility] Work Phone: Immunizations Immunization Date Immunization Notes Care Provider Chirag summers 10-13-2021 COVID-19 Ad26.COV2.S ([place]) DO Ming Espinoza Work Phone: [facility] Payers Date Payer Category Payer Unknown [employer] [address] xxxxxxxxx 2015-Present [phone] [address] [place] [address] xxxxxxxxx [id number] 1975 Unknown [id number] 1975 Unknown [id number] 1975 Unknown [id number] 1975 Unknown [id number] 1975 Unknown [id number] 1975 Unknown [id number] 1975 Unknown [id number] 1975 Unknown [id number] 1975 Unknown [id number] 1975 Unknown [id number] 9 1959 Self-pay [id number] 1959 Unknown [id number] 1959 Unknown [id number] Unknown [id number] Unknown [id number] Unknown [id number] Social History Date Type Detail Facility Tobacco smoking status NHIS Unknown if ever smoked [facility] [place], [place] Sex Assigned At Not on file [facility] Sex Assigned At Sex Assigned At Bir th [facility] Other Start: 06-05-2022 End: 06-20-2022 Tobacco smoking status NHIS Never smoked tobacco (finding) [facility] Start: 1975 Sex Assigned At Female [facility] Goals Date Patient Goal Desired Activity /State [...] she is not taking and reconfirmed today. [facility] 09-01-2023 Note [facility] 08-06-2023 Note For K-level of 3.4, left VM to start Kdur [address] Dolores anderson. [facility] 07-24-2023 Note [facility] 07-24-2023 Note [facility] 07-24-2023 Note [facility] 07-17-2023 Note [facility] 07-16-2023 Note Reviewed by phone noreen Monterroso MD pt input about her medication changes by PCP including stopping Amiloride. agreed to reschedule her 07/18 RV and review labs tomorrow by phone. Clinic [place] team informed to reschedule pt. [facility] 07-16-2023 Note [facility] 07-10-2023 Note [facility] 06-17-2023 Note [facility] 06-15-2023 Note [facility] 04-30-2023 Note [facility] 04-16-2023 Note Seen by Dolores FIERRO in clinic today, he states he gave the pt verbal instruction to reduce her Prednisone to 5mg every other day. [facility] 04-16-2023 Note [facility] 04-11-2023 Note Reviewed Mag K & cre atinine with Guillermo FIERRO and to start Amiloride 5mg every day due to low mag level 1.6. Pt notified and she verbalizes understanding. RV 04/16 [facility] 04-11-2023 Note [facility] 02-24-[address] Sharla anderson, dede nt notified to start taking Potassium chloride 20 meq daily. Pt verbalized understanding [facility] 02-04-2023 Note CK: 26.0. Reviewed l ab results with Dr. Monterroso. No new orders at this time. [facility] 02-03-2023 Note [facility] 01-09-2023 Note Tac:4.4. Reviewed la b results with Dr. Monterroso. New order to increase Envarsus by 0.5mg daily. New daily dose will be Envarsus 2mg. Patient verbalizes understanding of medication change and will repeat tac level in a week. [facility] 01-01-2023 Note Tac: 10. Reviewed la b results with Dr. Monterroso. New order to decrease Envarsus by 0.5mg daily. New daily dose will be Envarsus 1.5mg. Patient verbalizes understanding of medication change and repeat lab in a week. [facility] 12-25-2022 Note Patient seen in clin ic today with Dr. Parrish, to decrease Envarsus by 1 mg daily, new dose will now be 2 mg daily. Voiced understanding of medication change and will repeat level in about a week. [facility] 12-25-2022 Note [facility] 12-06-2022 Note Patient came for lab s today due to elevated creatinine, now improved. Was to get Prospera done as well but test was missed. To be in later this month for clinic visit and labs, will repeat at that time. [facility] 11-29-2022 Note [facility] 11-19-2022 Note Tac: 11.7. Reviewed lab results with Dr. Monterroso. New order to decrease Envarsus by 0.5 daily. New daily dose will be Envarsus 3mg. Patient verbalizes understanding of medication change and to recheck tac level in a week. [facility] 11-18-2022 Note Met with pt at [facility] on 09/23/22. Reviewed safe discharge plan. Will have familial support at home. Provided post op education including s/s of mental health exacerbation, prednisone side effects and clinic expectations. [facility] 11-08-2022 Note [facility] 11-06-2022 Note Protein urine: 14 an d Creatinine urine: 62. Reviewed results with Dr. Monterroso. No new medication orders at this time. [facility] 10-23-2022 Note [facility] 10-18-2022 Note [facility] 10-15-2022 Note [facility] 10-15-2022 Note [facility] 10-14-2022 Note [facility] 10-08-2022 Note [facility] 10-08-2022 Note [facility] 10-07-2022 Note [facility] 07-30-2022 Evaluation note Encounter Date Diagnosis Assessment [...] She has gout and follows with a paint laboratory technician. She takes Urolic and denies any recent gout flare Jul, Metabolic acidemia, unspecified (ICD-10 - P19.9) She has metabolic acidosis due to the advanced CKD. Continue oral Sodium Bicarbonate [facility] 09-28-2022 Evaluation note* Encounter Date Diagnosis [...] disease, unspecified CKD stage (ICD-10 - N18.9) [facility]* Encounter Date Diagnosis Assessment Notes Treatment Notes Treatment Clinical Notes May, Pre-op testing (ICD-10 - Z01.818) [facility] 08-25-2022 Evaluation note* Encounter Date Diagnosis [...] will schedule this in the near future. [facility] 07-28-2022 Evaluation note* Encounter Date Diagnosis [...] explained to her the potential need of HAND WORKER in future. I discussed with her different options of HAND WORKER including PD, HTN renal transplant. I provide [...] disease. Apr, Gout (ICD-10 - M10.9) She stephens s gout and follows with a paint laboratory technician. She takes Urolic and denies any recent gout flare [facility] Other 07-26-2022 Evaluation note* Encounter Date Diagnosis [...] care provider if no improvement of symptoms. [facility] 05-24-2022 Evaluation note* Encounter Date Diagnosis Assessment Notes Treatment Notes Treatment Clinical Notes February, Screening for colon cancer (ICD-10 - Z12.11) [facility] 03-03-2022 Evaluation note* Encounter Date Diagnosis [...] explained to her the potential need of HAND WORKER in future. I discussed with her different options of HAND WORKER including PD, HTN renal transplant. I provide [...] She has gout and follows with a paint laboratory technician. She takes Urolic and denies any recent gout flare [facility] 06-25-2021 NotePatient Outreach (NEPHMN) MANDEEP PURI ([id number]) 1975 F Date Time Provider Department 03/30/21 PERRI BARRETT During your visit today, we recorded the following information about you: Allergies As of Date: 03/30/2021 Noted Allergy Reaction ALLOPURINOL 08/02/2019 4 - Hives Date Reviewed: 03/30/2021 Reviewed by: Perri Barrett MD - Fully Assessed Visit Diagnosis:Screening for genitourinary condition [Z13.89] Order(s):URINALYSIS, DIPSTICK ONLY [SQUA] Order #: [id number]. #:[id number] Prescriptions as of 03/30/2021 Sig: DULOXETINE 60 [...] dominant polycystic kidney dis*03/30/2021 Encounter Status:Closed by [employer] on 04/02/21[facility] 03-30-2021 NoteHNO ID: [id number] Author: Perri Barrett MD Service: ? Author Type: Physician Type: Progress Notes Filed: 03/30/2021 10:25 AM Note Text: Mrs. 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 [facility] general Narrative - Reported * Type Description Date Medical History HTN (hypertension) Medical History Anxiety Medical History polycystic kidneys Medical History COVID 05-17-2020 Surgical History C section Surgical History BREAST REDUCTION Hospitalization History child Hospitalization History KIDNEY INFECTION 07/2019 Hospitalization History COVID AND DEHYDRATION [facility] Other 08-12-2020 History general Narrative - Reported* Type Description Date Medical History HTN (hypertension) Medical History Anxiety Medical History polycystic kidneys Medical History COVID 05-17-2020 Medical History end stage renal disease Surgical History C section Surgical History BREAST REDUCTION Surgical History colonoscopy 04/01/2022 Surgical History wisdom teeth 03/24/2022 Hospitalization History child Hospitalization History KIDNEY INFECTION 07/2019 Hospitalization History COVID AND DEHYDRATION [facility] Other 08-12-2020 History general Narrative - Reported* [...] INFECTION 07/2019 Hospitalization History COVID AND DEHYDRATION [facility] Other 08-12-2020 History general Narrative - Reported* [...] INFECTION 07/2019 Hospitalization History COVID AND DEHYDRATION [employer] Other Evaluation noteNo assessment information available [facility] Work Phone: Evaluation noteNo InformationNort Prepared Response Other Assessments Diagnosis Acute sepsis (HCC)- Primary Acute cystitis without hematuria Acute cystitis Chronic renal failure, stage 4 (severe) (HCC) Polycystic kidney disease Polycystic kidney, unspecified type Advance Directives No Advanced Directives Records FoundDocuments on File Type Date Recorded Patient Reservation Manager Expl anation Advance Directives and Living Will Power of Research Editor Advance Directive Response Recorded Date/ Time Advance Directives No December 12 12:26pm Advance Directive Response Recorded Date/ Time Advance Directives No December 12 11:26am Summary Purpose Family History No Family History [...] content) DATE CREATED AUTHOR 08/04/2019 Marielena Castillo [facility] DATE CREATED AUTHOR AUTHOR'S ORGANIZ ATION 04/28/2020 [facility] DATE CREATED AUTHOR AUTHOR'S ORGANIZ ATION 09/12/2020 [facility] DATE CREATED AUTHOR AUTHOR'S ORGANIZ ATION 11/07/2021 [facility] DATE CREATED AUTHOR AUTHOR'S ORGANIZ ATION 02/27/[address] [facility] DATE CREATED AUTHOR AUTHOR'S ORGANIZ ATION 08/04/2022 [facility] DATE CREATED AUTHOR AUTHOR'S ORGANIZ ATION 10/06/2023 [facility] DATE CREATED AUTHOR AUTHOR'S ORGANIZ ATION 10/14/2023 [facility] DATE CREATED AUTHOR AUTHOR'S LORETA ATION 11/14/[address] [facility] Care Teams (unrecognized sec tion and content) Team Status: Inactive Member Role Status Dates Ming Espinoza , Primary Care Provider Active Jesus Parham MD Attending Provider Active Team Status: Inactive Member Role Status Dates Ming Espinoza , Primary Care Provider Active Shabbir Jones MD Attending Provider Active Team Status: Inactive Member Role Status Dates Ming Espinoza , Primary Care Provider Active Yaneth Muñoz MD Attending Provider Active Team Status: Active Member Role Status Dates Ming Espinoza , Primary Care Provider Active Team Status: Inactive Member Role Status Dates Ming Espinoza DO Primary Care Provider Active Stanley Forman PA-C Emergency Provider Active Team Status: Inactive Member Role Status Dates Ming Espinoza DO Primary Care Provider Active Blake Champion DO Attending Provider Active Team Status: Inactive Member Role Status Dates Ming Espinoza DO Primary Care Provider Active Start: November 06, 2023 End: November 06, 2023 Perri Ceja MD Attending Provider Active St art: November 06, 2023 End: November 06, 2023 Goals (unrecognized section and content) Goals may be documented in a n alternate section FOR RECORDS PERTAINING TO PATIENTS WHO ARE [...] BE BASED ON THE PRIMARY CLINICAL RECORDS. [employer] provides no warranty or guarantee of the accuracy or completeness of information in this document.
[2023-11-29 08:13] LABS: Alanine Aminotransferase 25 U/L (14-59); Albumin Globulin Ratio 0.9; Albumin Level 3.6 g/dL (3.4-5.0); Alkaline Phosphatase 93 U/L (46-116); Anion Gap 16.4; Aspartate Amino Transferase 14 U/L (15-37); BUN Creatinine Ratio 10.7; Bilirubin Direct 0.1 mg/dL (0.0-0.2); Bilirubin Total 0.3 mg/dL (0.2-1.0); Calcium 8.9 mg/dL (8.5-10.1); Carbon Dioxide 23.4 mmol/L (21.0-32.0); Chloride 103 mmol/L (98-107); Cholesterol 195 mg/dL (<=200); Estimated GFR (African America >60 (>=60); Estimated GFR (Non-African Ame 52 (>=60); Glucose 97 mg/dL (74-106); HDL Cholesterol 49 mg/dL (40-60); Magnesium 1.6 mg/dL (1.8-2.4); Phosphorus 3.2 mg/dL (2.6-4.7); Potassium 3.8 mmol/L (3.5-5.1); Sodium 139 mmol/L (136-145); Total Protein 7.6 g/dL (6.4-8.2); Triglycerides 180 mg/dL (<=150); Uric Acid 3.9 mg/dL (2.6-6.0)
[2023-11-29 08:26] LABS: Basophils Absolute Auto 0.1 10^3/uL (0.0-0.1); Basophils Percent Auto 0.5 % (0.2-2.0); Eosinophils Absolute Auto 0.3 10^3/uL (0.0-0.7); Eosinophils Percent Auto 2.7 % (0.9-7.0); Hematocrit 38.2 % (36.0-48.0); Hemoglobin 12.5 g/dL (12.0-16.0); Immature Granulocytes Abs Auto 0.07 10^3/uL (0.00-0.03); Immature Granulocytes Pct Auto 0.7 % (0.0-0.5); Lymphocytes Absolute Auto 1.5 10^3/uL (1.2-3.8); Mean Corpuscular HGB Conc 32.7 g/dL (29.9-35.2); Mean Corpuscular Hemoglobin 28.6 pg (26.7-34.0); Mean Corpuscular Volume 87.4 fL (81.0-99.0); Mean Platelet Volume 8.8 fL (9.5-13.5); Monocytes Absolute Auto 0.5 10^3/uL (0.3-0.8); Monocytes Percent Auto 4.8 % (1.7-12.0); Neutrophils Absolute Auto 7.5 10^3/uL (1.4-6.5); Neutrophils Percent Auto 76.3 % (43.0-75.0); Platelet Count 360 10^3/uL (150-450); Red Blood Count 4.37 10^6/uL (4.20-5.40); Red Cell Distribution Width 14.5 % (11.0-15.0); White Blood Count 9.8 10^3/uL (4.0-11.0)
[2023-12-04 07:09] LABS: Tacrolimus (FK506), Blood 4.9 ng/mL (2.0-20.0)
== END 2023-11-29 07:32 | disposition home or self-care (01) ==
LOC: LAB 07:32
PROVIDERS: PCP Internal Medicine; Visit Provider Internal Medicine Nephrology
DX: R73.01 Impaired fasting glucose (principal); Z94.0 Kidney transplant status
CPT/HCPCS: 36415; 80053; 80061; 80197; 82248; 83735; 84100; 84550; 85025

== ENCOUNTER 2023-12-22 07:20 | Outpatient (OUT) | payer OTHER, SELFPAY ==
--- OUTSIDE RECORDS SUMMARY | 2023-12-22 07:25 | XMS_ITS | CCD ---
Author Name Unknown Address [address] [place] [address] Organization [facility] Care Team Providers Care Tie Buyer Name Role Phone Ming Espinoza Primary Care Provider VIDAL MADRIGAL Attending Unavailable MING ESPINOZA Primary Care Unavailable Yaneth Muñoz Unavailable Shabbir Jones Unavailable Dipika Stinson Unavailable Jesus Parham Unavailable DO Ming Espinoza Primary Care Provider MD Shabbir Jones Attending Provider [phone] MD Yaneth Muñoz Attending Provider MD Jesus Parham Attending Provider Estefania Vo Unavailable DO Ming Espinoza Primary Care Provider [phone] EB Forman Emergency Provider DO Blake Champion Attending Provider [phone] JAVON, DR ZARAGOZA Admitting Unavailable DR MING [...] Unavailable DO Ming Espinoza Primary Care Provider [phone] MD Perri Ceja Attending Provider Ming Espinoza [facility] Unavailable Blake Champion Referring Unavailable Self, Referral Admitting Unavailable Self, Referral Attending Unavailable Ming Espinoza [facility] Unavailable Perri Ceja Admitting Unavailable Perri Ceja Attending Unavailable Allergies Allergy Classification Reported Allergen(s) Allergy Type Date of Onset Reaction(s) Facility (12 sources) Allopurinol; Translations: [ALLOPURINOL] Drug Allergy 08-02-2019 [place], [place] (7 sources) venlafaxine; Translations: [VENLAFAXINE] Drug Allergy 06-05-2022 [facility] (1 source) venlafaxine; Translations: [VENLAFAXINE HCL] Drug Allergy 07-10-2021 [facility] Repository (1 source) Allopurinol Drug Allergy 01-10-2023 [facility] Repository Medications Current Medications Medication Drug Class(es) Dates Sig (Normalized) Sig (Original) amoxicillin 875 mg / clavulanate 125 mg oral tablet (2 sources) Penicillin-class Antibacterial Start: 04-30-2022 take 1 tablet by mouth every twelve hours Amoxicillin-Pot Clavulanate 875-125 MG 1 tablet Orally every 12 hrs for 7 days Apr, Active {1 (ascorbic acid 7540 MG / polyethylene glycol 3350 43345 MG / potassium chloride 1200 MG / sodium ascorbate 78433 MG / sodium chloride 3200 MG Powder for Oral Solution) / 1 (polyethylene glycol 3350 741978 MG / potassium chloride 1000 MG / sodium chloride 2000 MG / sodium sulfate 9000 MG Powder for Oral Solution) } Pack [Plenvu] (1 source) Osmotic Laxative, Vitamin C Start: 02-26-2022 Plenvu 140 GM dose 1 pouch at 4pm, dose 2 pouch A & B at 11pm Orally twice a day for 1 days BIN:[id number] PCN: [id number] GROUP:[id number] ID:[id number] February, Active cetirizine hydrochloride 10 mg oral [...] Start: 08-02-2019 take 2 tablets by mo [facility] once daily Acetaminophen (Tylenol Extra Strength) 500 mg Tablet Active 1000 MG PO Daily August 01, 2019 11:00pm calcitriol 0.01576 mg oral capsule (5 sources) Vitamin D3 [...] D2 Compound Start: 01-20-2019 End: 08-02-2019 take 59590 [IU] by mouth every month Ergocalciferol (Vitamin D2) Discontinued 17545 UNIT PO every month January 19, 2019 [...] Translations: [Chronic renal failure, stage 4 (severe) ([facility])] Chronic Acute and unspecified renal failure (5 [...] 10-23-2022 Episodic Other aftercare (2 sources) Other prison (current) drug therapy; Translations: [Other prison (current) drug therapy] Onset: 11-06-2022 Episodic Other [...] 11-06-2023 Antinuclear Abs, IFA Negative Normal . [facility] Comment on above: Result Comment: Nega tive <1:80 Borderline 1:80 Positive >1:80 ICAP nomenclature: AC-0 For more information about Hep-2 cell patterns use ANApatterns.org, the official website for the International Consensus on Antinuclear Antibody (PAPITO) Patterns (ICAP). Performed at: - [facility] [id number] Grinder Operator: Gabriel Whitman PhD, Phone: [phone] PERFORMED BY: [place] [address] PATHOLOGIST [employer] A[employer] MCKEE M.D. Performed By: #### C K, CRP, ESR, CBC, CMP #### [address] #### PAPITO #### [facility] , Alanine aminotransferase [En zymatic activity/volume] in Serum or PlasmaOrdered By: Perri Ceja on 11-06-2023 ALT [Catalytic activity/Vol] 20 U/L [facility] Albumin [Mass/volume] in Ser um or Plasma by Bromocresol green (BCG) dye binding methoOrdered By: Perri Ceja on 11-06-2023 Albumin BCG dye [Mass/Vol] 4.7 g/dL 3.5-5.7 [facility] Alkaline phosphatase [Enzyma tic activity/volume] in Serum or PlasmaOrdered By: Perri Ceja on 11-06-2023 ALP [Catalytic activity/Vol] 96 U/L 34-104 [facility] Aspartate aminotransferase [ Enzymatic activity/volume] in Serum or PlasmaOrdered By: Perri Ceja on 11-06-2023 AST [Catalytic activity/Vol] 16 U/L 13-39 [facility] Basophils Auto (Bld) [#/Vol] Ordered By: Perri Ceja on 11-06-2023 Basophils (Bld) [#/Vol] 0.1 10*3/uL 0.0-0.2 [facility] Basophils/100 WBC Auto (Bld) Ordered By: Perri Ceja on 11-06-2023 Basophils/100 WBC (Bld) 0.7 % . [facility] Bilirubin.total [Mass/volume ] in Serum or PlasmaOrdered By: Perri Ceja on 11-06-2023 Bilirubin [Mass/Vol] 0.4 mg/dL 0.3-1.0 [facility] C reactive protein [Mass/vol ume] in Serum or PlasmaOrdered By: Perri Ceja on 11-06-2023 CRP [Mass/Vol] 2.0 mg/dL 0.0-0.5 [facility] C-Reactive Proteinon 024 C-Reactive Protein 2.0 mg/dL High 0.0-0.5 [facility] Comment on above: Result Comment: PERF ORMED BY: [place] [address] PATHOLOGIST [employer] A[employer] MCKEE M.D. Performed By: #### C K, CRP, ESR, CBC, CMP #### [place] [address] [place] #### PAPITO #### [facility] , Calcium [Mass/volume] in Ser um or PlasmaOrdered By: Perri Ceja on 11-06-2023 Calcium [Mass/Vol] 10.3 mg/dL 8.6-10.3 [facility] Carbon dioxide, total [Moles /volume] in Serum or PlasmaOrdered By: Perri Ceja on 11-06-2023 CO2 [Moles/Vol] 26.1 mmol/L 21.0-31.0 [facility] Chloride [Moles/volume] in S aislinn or PlasmaOrdered By: Perri Ceja on 11-06-2023 Chloride [Moles/Vol] 104 mmol/L 98-107 [facility] Complete Blood Count Auto Di ffon 11-06-2023 Basophils (Bld) [#/Vol] 0.1 10*3/uL Normal 0.0-0.2 [facility] Comment on above: Performed By: #### C K, CRP, ESR, CBC, CMP #### [place] [address] [place] #### PAPITO #### [facility] , Basophils/100 WBC (Bld) 0.7 % Normal . [facility] Comment on above: Performed By: #### C K, CRP, ESR, CBC, CMP #### [place] [address] [place] #### PAPITO #### [facility] , Eosinophils (Bld) [#/Vol] 0.3 10*3/uL Normal 0.0-0.45 [facility] Comment on above: Performed By: #### C K, CRP, ESR, CBC, CMP #### [place] [address] [place] #### PAPITO #### [facility] , Eosinophils/100 WBC (Bld) 3.0 % Normal . [facility] Comment on above: Performed By: #### C K, CRP, ESR, CBC, CMP #### [place] [address] [place] #### PAPITO #### [facility] , Erythrocyte distribution width (RBC) [Ratio] 15.3 % Normal 11.9-15.3 [facility] Comment on above: Performed By: #### C K, CRP, ESR, CBC, CMP #### [place] [address] [place] #### PAPITO #### [facility] , Hematocrit (Bld) [Volume fraction] 38.9 % Normal 34.0-46.4 [facility] Comment on above: Performed By: #### C K, CRP, ESR, CBC, CMP #### [place] [address] [place] #### PAPITO #### [facility] , Hemoglobin (Bld) [Mass/Vol] 13.1 g/dL Normal 11.8-15.4 [facility] Comment on above: Performed By: #### C K, CRP, ESR, CBC, CMP #### [address] #### PAPITO #### [facility] , Lymphocytes (Bld) [#/Vol] 1.5 10*3/uL Normal 1.00-4.8 [facility] Comment on above: Performed By: #### C K, CRP, ESR, CBC, CMP #### [place] [address] [place] #### PAPITO #### [facility] , Lymphocytes/100 WBC (Bld) 17.6 % Normal . [facility] Comment on above: Performed By: #### C K, CRP, ESR, CBC, CMP #### [place] [address] [place] #### PAPITO #### [facility] , MCH (RBC) [Entitic mass] 28.4 pg Normal 24.7-34.3 [facility] Comment on above: Performed By: #### C K, CRP, ESR, CBC, CMP #### [place] [address] [place] #### PPAITO #### [facility] , MCV (RBC) [Entitic vol] 84.6 fL Normal 80-100 [facility] Comment on above: Performed By: #### C K, CRP, ESR, CBC, CMP #### [facility] [address] [place] [address] [place] #### PAPITO #### [facility] , Mean Corpuscular HGB Conc 33.6 g/dL Normal 32.0-35.0 [facility] Comment on above: Performed By: #### C K, CRP, ESR, CBC, CMP #### [place] [address] [place] #### PAPITO #### [facility] , Monocytes (Bld) [#/Vol] 0.6 10*3/uL Normal 0.0-0.8 [facility] Comment on above: Performed By: #### C K, CRP, ESR, CBC, CMP #### [place] [address] [place] #### PAPITO #### [facility] , Monocytes/100 WBC (Bld) 6.6 % Normal . [facility] Comment on above: Performed By: #### C K, CRP, ESR, CBC, CMP #### [place] [address] [place] #### PAPITO #### [facility] , Neutrophils (Bld) [#/Vol] 6.3 10*3/uL Normal 1.8-7.7 [facility] Comment on above: Performed By: #### C K, CRP, ESR, CBC, CMP #### [place] [address] [place] #### PAPITO #### [facility] , Neutrophils/100 WBC (Bld) 72.1 % Normal . [facility] Comment on above: Performed By: #### C K, CRP, ESR, CBC, CMP #### [place] [address] [place] #### PAPITO #### [facility] , NRBC% 0.1 /100{WBC} Normal 0-0.5 [facility] Comment on above: Performed By: #### C K, CRP, ESR, CBC, CMP #### [facility] [address] [place] [address] #### PAPITO #### [facility] , Platelet mean volume (Bld) [Entitic vol] 6.9 fL Normal 6.3-10.7 [facility] Comment on above: Performed By: #### C K, CRP, ESR, CBC, CMP #### [address] #### PAPITO #### [facility] , Platelets (Bld) [#/Vol] 393 10*3/uL Normal 150-450 [facility] Comment on above: Performed By: #### C K, CRP, ESR, CBC, CMP #### [place] [address] [place] #### PAPITO #### [facility] , RBC (Bld) [#/Vol] 4.60 10*6/uL Normal 3.60-5.00 [facility] Comment on above: Performed By: #### C K, CRP, ESR, CBC, CMP #### [address] #### PAPITO #### [facility] , WBC (Bld) [#/Vol] 8.8 10*3/uL Normal 3.8-11.6 [facility] Comment on above: Performed By: #### C K, CRP, ESR, CBC, CMP #### [place] [address] [place] #### PAPITO #### [facility] , Comprehensive Metabolic Pane jonathan 11-06-2023 Albumin [Mass/Vol] 4.7 g/dL Normal 3.5-5.7 [facility] Comment on above: Performed By: #### C K, CRP, ESR, CBC, CMP #### [address] #### PAPITO #### [facility] , Albumin/Globulin [Mass ratio] 1.6 {ratio} Normal [facility] Comment on above: Performed By: #### C K, CRP, ESR, CBC, CMP #### [place] [address] [place] #### PAPITO #### [facility] , ALP [Catalytic activity/Vol] 96 U/L Normal 34-104 [facility] Comment on above: Performed By: #### C K, CRP, ESR, CBC, CMP #### [address] #### PAPITO #### [facility] , ALT [Catalytic activity/Vol] 20 U/L Normal 7-52 [facility] Comment on above: Performed By: #### C K, CRP, ESR, CBC, CMP #### [address] #### PAPITO #### [facility] , Anion gap [Moles/Vol] 12.7 mmol/L Normal 6.0-15.0 [facility] Comment on above: Performed By: #### C K, CRP, ESR, CBC, CMP #### [place] [address] [place] #### PAPITO #### [facility] , AST [Catalytic activity/Vol] 16 U/L Normal 13-39 [facility] Comment on above: Performed By: #### C K, CRP, ESR, CBC, CMP #### [facility] [address] [place] [address] [place] #### PAPITO #### [facility] , Bilirubin [Mass/Vol] 0.4 mg/dL Normal 0.3-1.0 [facility] Comment on above: Performed By: #### C K, CRP, ESR, CBC, CMP #### [facility] [address] [place] [address] [place] #### PAPITO #### [facility] , Calcium [Mass/Vol] 10.3 mg/dL Normal 8.6-10.3 [facility] Comment on above: Performed By: #### C K, CRP, ESR, CBC, CMP #### [facility] [address] [place] [address] [place] #### PAPITO #### [facility] , Chloride [Moles/Vol] 104 mmol/L Normal 98-107 [facility] Comment on above: Performed By: #### C K, CRP, ESR, CBC, CMP #### [place] [address] [place] #### PAPITO #### [facility] , CO2 [Moles/Vol] 26.1 mmol/L Normal 21.0-31.0 [facility] Comment on above: Performed By: #### C K, CRP, ESR, CBC, CMP #### [address] #### PAPITO #### [facility] , Creatinine [Mass/Vol] 1.17 mg/dL Normal 0.60-1.20 [facility] Comment on above: Performed By: #### C K, CRP, ESR, CBC, CMP #### [facility] [address] [place] [address] [place] #### PAPITO #### [facility] , GFR/1.73 sq M.predicted MDRD (S/P/Bld) [Vol rate/Area] 57.919 mL/min/{1.73_m2} [facility] Comment on above: Performed By: #### C K, CRP, ESR, CBC, CMP #### [place] [address] [place] #### PAPITO #### [facility] , Globulin (S) [Mass/Vol] 3.0 g/dL Normal [facility] Comment on above: Performed By: #### C K, CRP, ESR, CBC, CMP #### [facility] [address] [place] [address] [place] #### PAPITO #### [facility] , Glucose [Mass/Vol] 91 mg/dL Normal 70-100 [facility] Comment on above: Result Comment: [facility] Glucose Reference Range is dependent on time and content of last meal. Glucose of more than 200 mg/dL in a nonstressed, ambulatory subject supports the diagnosis of Diabetes Mellitus. ADA recommended reference range Performed By: #### C K, CRP, ESR, CBC, CMP #### [place] [address] [place] #### PAPITO #### [facility] , Potassium [Moles/Vol] 3.8 mmol/L Normal 3.5-5.1 [facility] Comment on above: Performed By: #### C K, CRP, ESR, CBC, CMP #### [place] [address] [place] #### PAPITO #### [facility] , Protein [Mass/Vol] 7.7 g/dL Normal 6.4-8.9 [facility] Comment on above: Performed By: #### C K, CRP, ESR, CBC, CMP #### [place] [address] [place] #### PAPITO #### [facility] , Sodium [Moles/Vol] 139 mmol/L Normal 136-145 [facility] Comment on above: Performed By: #### C K, CRP, ESR, CBC, CMP #### [place] [address] [place] #### PAPITO #### [facility] , Urea nitrogen [Mass/Vol] 17 mg/dL Normal 7-25 [facility] Comment on above: Performed By: #### C K, CRP, ESR, CBC, CMP #### [facility] [address] [place] [address] #### PAPITO #### [facility] , Creatine Kinaseon 11-06-2023 CK [Catalytic activity/Vol] 30 U/L Normal 30-223 [facility] Comment on above: Result Comment: PERF ORMED BY: [place] [address] PATHOLOGIST [place] [employer] A[employer]CKEE M.D. Performed By: #### C K, CRP, ESR, CBC, CMP #### [facility] [address] [place] [address] #### PAPITO #### [facility] , Creatine kinase [Enzymatic a ctivity/volume] in Serum or PlasmaOrdered By: Perri Ceja on 11-06-2023 CK [Catalytic activity/Vol] 30 U/L [facility] Creatinine [Mass/volume] in Serum or PlasmaOrdered By: Perri Ceja on 11-06-2023 Creatinine [Mass/Vol] 1.17 mg/dL 0.60-1.20 [facility] Eosinophils Auto (Bld) [#/Vo l]Ordered By: Perri Ceja on 11-06-2023 Eosinophils (Bld) [#/Vol] 0.3 10*3/uL 0.0-0.45 [facility] Eosinophils/100 WBC Auto (Bl d)Ordered By: Perri Ceja on 11-06-2023 Eosinophils/100 WBC (Bld) 3.0 % . [facility] Erythrocyte Sedimentation Ra mathieu 11-06-2023 ESR (Bld) [Velocity] 49 mm/h High 0-19 [facility] Comment on above: Result Comment: PERF ORMED BY: [place] [address] PATHOLOGIST [employer] A[employer]CKEE M.D. Performed By: #### C K, CRP, ESR, CBC, CMP #### [place] [address] [place] #### PAPITO #### [facility] , Erythrocyte distribution wid th Auto (RBC) [Ratio]Ordered By: Perri Ceja on 11-06-2023 Erythrocyte distribution width (RBC) [Ratio] 15.3 % 11.9-15.3 [facility] Erythrocyte sedimentation ra te by Photometric methodOrdered By: Perri Ceja on 11-06-2023 ESR Photometric method (Bld) [Velocity] 49 mm/hr 0-19 [facility] Globulin Calc (S) [Mass/Vol] Ordered By: Perri Ceja on 11-06-2023 Globulin (S) [Mass/Vol] 3.0 g/dL [facility] Glucose [Mass/volume] in Ser um or PlasmaOrdered By: Perri Ceja on 11-06-2023 Glucose [Mass/Vol] 91 mg/dL 70-100 [facility] Comment on above: ADA recommended refe rence rangeRandom Glucose Reference Range is dependent on time and content of last meal. Glucose of more than 200 mg/dL in a nonstressed, ambulatory subject supports the diagnosis of Diabetes Mellitus. Hematocrit Auto (Bld) [Volum e fraction]Ordered By: Perri Ceja on 11-06-2023 Hematocrit (Bld) [Volume fraction] 38.9 % 34.0-46.4 [facility] Hemoglobin [Mass/volume] in BloodOrdered By: Perri Ceja on 11-06-2023 Hemoglobin (Bld) [Mass/Vol] 13.1 g/dL 11.8-15.4 [facility] Leukocytes [#/volume] correc noah for nucleated erythrocytes in Blood by Automated counOrdered By: Perri Ceja on 11-06-2023 WBC corrected for nucl RBC Auto (Bld) [#/Vol] 8.8 10*3/uL 3.8-11.6 [facility] Lymphocytes Auto (Bld) [#/Vo l]Ordered By: Perri Ceja on 11-06-2023 Lymphocytes (Bld) [#/Vol] 1.5 10*3/uL 1.00-4.8 [facility] Lymphocytes/100 WBC Auto (Bl d)Ordered By: Perri Ceja on 11-06-2023 Lymphocytes/100 WBC (Bld) 17.6 % . [facility] MCH Auto (RBC) [Entitic mass ]Ordered By: Perri Ceja on 11-06-2023 MCH (RBC) [Entitic mass] 28.4 pg 24.7-34.3 [facility] MCHC Auto (RBC) [Mass/Vol]Or dered By: Perri Ceja on 11-06-2023 MCHC (RBC) [Mass/Vol] 33.6 g/dL 32.0-35.0 [facility] MCV Auto (RBC) [Entitic vol] Ordered By: Perri Ceja on 11-06-2023 MCV (RBC) [Entitic vol] 84.6 fL 80-100 [facility] Monocytes Auto (Bld) [#/Vol] Ordered By: Perri Ceja on 11-06-2023 Monocytes (Bld) [#/Vol] 0.6 10*3/uL 0.0-0.8 [facility] Monocytes/100 WBC Auto (Bld) Ordered By: Perri Ceja on 11-06-2023 Monocytes/100 WBC (Bld) 6.6 % . [facility] Neutrophils Auto (Bld) [#/Vo l]Ordered By: Perri Ceja on 11-06-2023 Neutrophils (Bld) [#/Vol] 6.3 10*3/uL 1.8-7.7 [facility] Neutrophils/100 WBC Auto (Bl d)Ordered By: Perri Ceja on 11-06-2023 Neutrophils/100 WBC (Bld) 72.1 % . [facility] No Panel InformationOrdered By: Perri Ceja on 11-06-2023 Estimated GFR (CKD-EPI) 57.919 mL/Min [facility] Creatinine Clearance (Chem N/A [facility] Nucleated erythrocytes [Pres ence] in Blood by Automated countOrdered By: Perri Ceja on 11-06-2023 Nucleated RBC Auto Ql (Bld) 0.1 /100{WBC} 0-0.5 [facility] Platelet mean volume Auto (B ld) [Entitic vol]Ordered By: Perri Ceja on 11-06-2023 Platelet mean volume (Bld) [Entitic vol] 6.9 fL 6.3-10.7 [facility] Platelets Auto (Bld) [#/Vol] Ordered By: Perri Ceja on 11-06-2023 Platelets (Bld) [#/Vol] 393 10*3/uL 150-450 [facility] Potassium [Moles/volume] in Serum or PlasmaOrdered By: Perri Ceja on 11-06-2023 Potassium [Moles/Vol] 3.8 mmol/L 3.5-5.1 [facility] Protein [Mass/volume] in Ser um or PlasmaOrdered By: Perri Ceja on 11-06-2023 Protein [Mass/Vol] 7.7 g/dL 6.4-8.9 [facility] RBC Auto (Bld) [#/Vol]Ordere d By: Perri Ceja on 11-06-2023 RBC (Bld) [#/Vol] 4.60 10*6/uL 3.60-5.00 [facility] Serum or plasma albumin/glob ulin mass ratioOrdered By: Perri Ceja on 11-06-2023 Albumin/Globulin [Mass ratio] 1.6 {ratio} [facility] Serum or plasma anion gap de terminationOrdered By: Perri Ceja on 11-06-2023 Anion gap [Moles/Vol] 12.7 mmol/L 6.0-15.0 [facility] Sodium [Moles/volume] in Ser um or PlasmaOrdered By: Perri Ceja on 11-06-2023 Sodium [Moles/Vol] 139 mmol/L 136-145 [facility] Urea nitrogen [Mass/volume] in Serum or PlasmaOrdered By: Perri Ceja on 11-06-2023 Urea nitrogen [Mass/Vol] 17 mg/dL 7-25 [facility] WBC Auto (Bld) [#/Vol]Ordere d By: Perri Ceja on 11-06-2023 WBC (Bld) [#/Vol] 8.8 10*3/uL 3.8-11.6 [facility] Orders Onlyon 10-02-2023 Orders Only Normal [facility] Follow-Upon 11-27-2023 Follow-Up Normal [facility] BILIRUBIN, DIRECTon 08-26-20 Magnesium [Mass/Vol] 0.1 mg/dL Normal 0-0.2 [facility] Comment on above: Performed By: #### L [id number] ####[facility] ([facility]AK[facility])[address] [place] [address] CBC WITH AUTO DIFFERENTIALon 08-26-2023 Basophils (Bld) [#/Vol] 0.05 10*3/uL Normal 0.00-0.20 [facility] Comment on above: Performed By: #### L [id number] ####[facility] ([facility]AK[facility])[address] [place] [address] Basophils/100 WBC (Bld) 0.6 % Normal 0.0-1.0 [facility] Comment on above: Performed By: #### L [id number] ####[facility] ([facility] [place] [address] Eosinophils (Bld) [#/Vol] 0.20 10*3/uL Normal 0.00-0.50 [facility] Comment on above: Performed By: #### L [id number] ####[facility] ([facility])[address] [place] [address] Eosinophils/100 WBC (Bld) 2.5 % Normal 0.0-6.0 [facility] Comment on above: Performed By: #### L [id number] ####[facility] ([facility])[address] [place] [address] Erythrocyte distribution width (RBC) [Ratio] 14.4 % Normal 11.5-15.0 [facility] Comment on above: Performed By: #### L [id number] ####[facility] ([facility])[address] [place] [address] ERYTHROCYTE MEAN CORPUSCULAR HEMOGLOBIN CONCENTRATION (G/DL) BY AUTOMATED 32.9 g/dL Normal 32.0-35.0 [facility] Comment on above: Performed By: #### L [id number] ####[facility] ([facility])[address] [place] [address] Hematocrit (Bld) [Volume fraction] 40.4 % Normal 36.0-48.0 [facility] Comment on above: Performed By: #### L [id number] ####[facility] ([facility])[address] [place] [address] Hemoglobin (Bld) [Mass/Vol] 13.3 g/dL Normal 12.0-15.0 [facility] Comment on above: Performed By: #### L [id number] ####[facility] ([facility])[address] [place] [address] Immature granulocytes (Bld) [#/Vol] 0.06 10*3/uL Normal 0.00-0.20 [facility] Comment on above: Performed By: #### L [id number] ####[facility] ([facility])[address] [place] [address] Immature granulocytes/100 WBC (Bld) 0.7 % Normal 0.0-1.0 [facility] Comment on above: Performed By: #### L [id number] ####[facility] ([facility])[address] [place] [address] Lymphocytes (Bld) [#/Vol] 1.19 10*3/uL Low 1.20-4.00 [facility] Comment on above: Performed By: #### L [id number] ####[facility] ([facility])[address] [place] [address] Lymphocytes/100 WBC (Bld) 14.6 % Low 20.0-45.0 [facility] Comment on above: Performed By: #### L [id number] ####[facility] ([facility])[address] [place] [address] MCH (RBC) [Entitic mass] 28.4 pg Normal 27.0-33.0 [facility] Comment on above: Performed By: #### L [id number] ####[facility] ([facility]ER)[address] [place] [address] MCV (RBC) [Entitic vol] 86.1 fL Normal 82.0-98.0 [facility] Comment on above: Performed By: #### L [id number] ####[facility] (BEAKER)[address] [place] [address] Monocytes (Bld) [#/Vol] 0.42 10*3/uL Normal 0.10-1.00 [facility] Comment on above: Performed By: #### L [id number] ####[facility] ([facility])[address] [place] [address] Monocytes/100 WBC (Bld) 5.2 % Normal 5.0-12.0 [facility] Comment on above: Performed By: #### L [id number] ####[facility] (BEAKER)[address] [place] [address] Neutrophils (Bld) [#/Vol] 6.22 10*3/uL Normal 1.60-7.60 [facility] Comment on above: Performed By: #### L [id number] ####[facility] ([facility])[address] [place] [address] Neutrophils/100 WBC (Bld) 76.4 % High 40.0-72.0 [facility] Comment on above: Performed By: #### L [id number] ####[facility] (BEAKER)[address] [place] [address] NRBC (PER 100 WBCS) BY AUTOMATED COUNT 0.0 % Normal 0 [facility] Comment on above: Performed By: #### L [id number] ####[facility] (BEAKER)[address] [place] [address] PLATELETS (10*3/UL) IN BLOOD AUTOMATED COUNT 374 10*3/uL Normal 150-400 [facility] Comment on above: Performed By: #### L [id number] ####[facility] (BEAKER)[address] [place] [address] RBC (Bld) [#/Vol] 4.69 10*6/uL Normal 3.80-5.00 [facility] Comment on above: Performed By: #### L [id number] ####[facility] ([facility])[address] [place] [address] WBC (Bld) [#/Vol] 8.14 10*3/uL Normal 4.00-10.60 [facility] Comment on above: Performed By: #### L [id number] ####[facility] ([facility])[address] [place] [address] COMPREHENSIVE METABOLIC PANE Jonathan 08-26-2023 Albumin [Mass/Vol] 4.7 g/dL Normal 3.5-5.7 [facility] Comment on above: Performed By: #### L [id number] ####[facility] ([facility])[address] [place] [address] ALP [Catalytic activity/Vol] 90 U/L Normal 34-104 [facility] Comment on above: Performed By: #### L [id number] ####[facility] ([facility])[address] [place] [address] ALT [Catalytic activity/Vol] 26 U/L Normal 7-52 [facility] Comment on above: Performed By: #### L [id number] ####[facility] ([facility])[address] [place] [address] Anion gap [Moles/Vol] 12 mmol/L Normal 7-20 [facility] Comment on above: Performed By: #### L [id number] ####[facility] ([facility])[address] [place] [address] AST [Catalytic activity/Vol] 22 U/L Normal 13-39 [facility] Comment on above: Performed By: #### L [id number] ####[facility] ([facility])[address] [place] [address] Bilirubin [Mass/Vol] 0.4 mg/dL Normal 0.3-1.0 [facility] Comment on above: Performed By: #### L [id number] ####[facility] ([facility])[address] [place] [address] Calcium [Mass/Vol] 9.6 mg/dL Normal 8.6-10.3 [facility] Comment on above: Performed By: #### L [id number] ####[facility] (BE[facility]ER)[address] [place] [address] Chloride [Moles/Vol] 103 mmol/L Normal 98-107 [facility] Comment on above: Performed By: #### L [id number] ####[facility] ([facility])[address] [place] [address] CO2 [Moles/Vol] 26 mmol/L Normal 21-31 [facility] Comment on above: Performed By: #### L [id number] ####[facility] ([facility])[address] [place] [address] Creatinine [Mass/Vol] 1.12 mg/dL Normal 0.60-1.20 [facility] Comment on above: Performed By: #### L [id number] ####[facility] ([facility])[address] [place] [address] GLOMERULAR FILTRATION RATE ML/MIN/1.73 SQ M.PREDICTED 61.0 mL/min/1.73m*2 Normal >60.0 [facility] Comment on above: Result Comment: The [facility]???s estimated glomerular filtration rate (eGFR) will no [...] of individuals. Performed By: #### L [id number] ####[facility] ([facility])[address] [place] [address] Glucose [Mass/Vol] 125 mg/dL High 70-100 [facility] Comment on above: Performed By: #### L [id number] ####[facility] ([facility]ER)[address] [place] [address] Potassium [Moles/Vol] 3.1 mmol/L Low 3.5-5.1 [facility] Comment on above: Performed By: #### L [id number] ####[facility] ([facility]ER)[address] [place] [address] Protein [Mass/Vol] 7.4 g/dL Normal 6.0-8.3 [facility] Comment on above: Performed By: #### L [id number] ####[facility] ([facility]ER)[address] [place] [address] Sodium [Moles/Vol] 138 mmol/L Normal 136-145 [facility] Comment on above: Performed By: #### L [id number] ####[facility] ([facility]ER)[address] [place] [address] Urea nitrogen [Mass/Vol] 15 mg/dL Normal 7-25 [facility] Comment on above: Performed By: #### L [id number] ####[facility] ([facility]ER)[address] [place] [address] UREA NITROGEN/CREATININE (MASS RATIO) IN SER/PLAS 13.4 Normal [facility] Comment on above: Performed By: #### L [id number] ####[facility] ([facility]ER)[address] [place] [address] HEMOGLOBIN A1Con 08-26-2023 Glucose [Mass/Vol] 108 mg/dL Normal [facility] Comment on above: Performed By: #### L [id number] ####[facility] ([facility]ER)[address] [place] [address] HbA1c (Bld) [Mass fraction] 5.4 % Normal 4.0-6.0 [facility] Comment on above: Performed By: #### L [id number] ####[facility] ([facility]ER)[address] [place] [address] LIPID PANELon 08-26-2023 CHOL/HDL 4.7 mg/dL Normal [facility] Comment on above: Performed By: #### L [id number] ####[facility] ([facility])[address] [place] [address] Cholesterol [Mass/Vol] 198 mg/dL Normal 120-200 [facility] Comment on above: Performed By: #### L [id number] ####[facility] ([facility])[address] [place] [address] Magnesium [Mass/Vol] 248 mg/dL High 40-149 [facility] Comment on above: Result Comment: TRIG LYCERIDE REFERENCE RANGE:20 YEARS AND OLDER CARDIOVASCULAR RISKLESS THAN 150 mg/dL LOW [id number] TO 199 mg/dL BORDERLINE [id number] mg/dL AND GREATER HIGH RISK Performed By: #### L [id number] ####[facility] ([facility])[address] [place] [address] Magnesium [Mass/Vol] 106 mg/dL Normal 0-160 [facility] Comment on above: Performed By: #### L [id number] ####[facility] ([facility])[address] [place] [address] Magnesium [Mass/Vol] 42 mg/dL Normal 23-92 [facility] Comment on above: Performed By: #### L [id number] ####[facility] ([facility])[address] [place] [address] NON HDL CHOL. (LDL+VLDL) 156 Normal [facility] Comment on above: Performed By: #### L [id number] ####[facility] ([facility])[address] [place] [address] TOTAL VLDL-C 50 mg/dL High 0-40 [facility] Comment on above: Performed By: #### L [id number] ####[facility] ([facility])[address] [place] [address] Labon 08-26-2023 Lab Normal [facility] MAGNESIUMon 08-26-2023 Magnesium [Mass/Vol] 1.5 mg/dL Low 1.9-2.7 [facility] Comment on above: Performed By: #### L [id number] ####[facility] ([facility])[address] [place] [address] PHOSPHORUSon 08-26-2023 Magnesium [Mass/Vol] 2.9 mg/dL Normal 2.5-5.0 [facility] Comment on above: Performed By: #### L [id number] ####[facility] ([facility])[address] [place] [address] TACROLIMUS LEVELon Tacrolimus (Bld) [Mass/Vol] 9.2 ng/mL Normal 5.0-20.0 [facility] Comment on above: Result Comment: The [employer] Tacrolimus assay is a delayed one-step immunoassay for the quantitative determination of tacrolimus in human whole blood using the chemiluminescent microparticle immunoassay (CMIA) technology with flexible assay protocols, referred to as Chemiflex. Performed By: #### L [id number] ####[facility] ([facility])[address] [place] [address] URIC ACIDon 08-26-2023 Magnesium [Mass/Vol] 5.1 mg/dL Normal 2.3-6.6 [facility] Comment on above: Performed By: #### L [id number] ####[facility] ([facility])[address] [place] [address] COMPREHENSIVE METABOLIC PANE Jonathan 08-06-2023 Albumin [Mass/Vol] 4.7 g/dL Normal 3.5-5.7 [facility] Comment on above: Performed By: #### L [id number] ####[facility] ([facility])[address] [place] [address] ALP [Catalytic activity/Vol] 85 U/L Normal 34-104 [facility] Comment on above: Performed By: #### L [id number] ####[facility] ([facility])[address] [place] [address] ALT [Catalytic activity/Vol] 25 U/L Normal 7-52 [facility] Comment on above: Performed By: #### L [id number] ####[facility] ([facility])[address] [place] [address] Anion gap [Moles/Vol] 14 mmol/L Normal 7-20 [facility] Comment on above: Performed By: #### L [id number] ####[facility] ([facility])[address] [place] [address] AST [Catalytic activity/Vol] 23 U/L Normal 13-39 [facility] Comment on above: Performed By: #### L [id number] ####[facility] ([facility])[address] [place] [address] Bilirubin [Mass/Vol] 0.5 mg/dL Normal 0.3-1.0 [facility] Comment on above: Performed By: #### L [id number] ####[facility] ([facility])[address] [place] [address] Calcium [Mass/Vol] 9.5 mg/dL Normal 8.6-10.3 [facility] Comment on above: Performed By: #### L [id number] ####[facility] ([facility])[address] [place] [address] Chloride [Moles/Vol] 105 mmol/L Normal 98-107 [facility] Comment on above: Performed By: #### L [id number] ####[facility] ([facility])[address] [place] [address] CO2 [Moles/Vol] 21 mmol/L Normal 21-31 [facility] Comment on above: Performed By: #### L [id number] ####[facility] ([facility])[address] [place] [address] Creatinine [Mass/Vol] 1.23 mg/dL High 0.60-1.20 [facility] Comment on above: Performed By: #### L [id number] ####[facility] ([facility])[address] [place] [address] GLOMERULAR FILTRATION RATE ML/MIN/1.73 SQ M.PREDICTED 54.5 mL/min/1.73m*2 Low >60.0 [facility] Comment on above: Result Comment: The [facility]???s estimated glomerular filtration rate (eGFR) will no [...] of individuals. Performed By: #### L [id number] ####[facility] ([facility])[address] [place] [address] Glucose [Mass/Vol] 133 mg/dL High 70-100 [facility] Comment on above: Performed By: #### L [id number] ####[facility] ([facility])[address] [place] [address] Potassium [Moles/Vol] 3.4 mmol/L Low 3.5-5.1 [facility] Comment on above: Performed By: #### L [id number] ####[facility] (BEAKER)[address] [place] [address] Protein [Mass/Vol] 7.4 g/dL Normal 6.0-8.3 [facility] Comment on above: Performed By: #### L [id number] ####[facility] ([facility]ER)[address] [place] [address] Sodium [Moles/Vol] 137 mmol/L Normal 136-145 [facility] Comment on above: Performed By: #### L [id number] ####[facility] ([facility]ER)[address] [place] [address] Urea nitrogen [Mass/Vol] 14 mg/dL Normal 7-25 [facility] Comment on above: Performed By: #### L [id number] ####[facility] ([facility]ER)[address] [place] [address] UREA NITROGEN/CREATININE (MASS RATIO) IN SER/PLAS 11.4 Normal [facility] Comment on above: Performed By: #### L [id number] ####[facility] ([facility]ER)[address] [place] [address] Labon 08-06-2023 Lab [facility] Orders Onlyon 08-06-2023 Orders Only [facility] SINGLE ANTIGEN CLASS Ion AB SCREEN COMMENTS No Class I donor spe cific antibody identified [facility] Comment on above: Order Comment: To be used after initial monthly order expires Performed By: #### L [id number] ####[facility]ISS[facility] (HISTOTRAC)[address] [place] [address] [place] CLASS I TESTED DATE [facility] Comment on above: Order Comment: To be used after initial monthly order expires Performed By: #### L [id number] ####[facility]ISS[facility]YP[facility] (HISTOTRAC)[address] [place] [address] [facility] SINGLE ANTIGEN CLASS 1 TEST METHOD Class I Single Antigen Normal [facility] Comment on above: Order Comment: To be used after initial monthly order expires Performed By: #### L [id number] ####[facility]ISSUE [facility]YP[facility] (HISTOTRAC)[address] [place] [address] [facility] SINGLE ANTIGEN CLASS IIon AB SCREEN COMMENTS No Class II donor specific antibody identified [facility] Comment on above: Order Comment: To be used after initial monthly order expires Performed By: #### L [id number] ####[facility] TISS[facility]YP[facility] (HISTOTRAC)[address] [place] [address] [place] CLASS II TESTED DATE [facility] Comment on above: Order Comment: To be used after initial monthly order expires Performed By: #### L [id number] ####[facility] TISSUE [facility]YP[facility] (HISTOTRAC)[address] [place] [address] [facility] SIGNED BY Signed by Sree escamilla CHT(ACHI) MT(ASCP), Waste P[employer] Trans[employer] Immunology [facility] Comment on above: Order Comment: To be used after initial monthly order expires Performed By: #### L [id number] ####[facility] TISSUE [facility]YP[facility] (HISTOTRAC)[address] [place], [place] [address] Result Comment: Clas s I Antigen Microbeads Performed By: #### L [id number] ####[facility] TISSUE [facility]YP[facility] (HISTOTRAC)[address] [place] [address] [facility] SINGLE ANTIGEN CLASS 2 TEST METHOD Class II Single Antigen Normal [facility] Comment on above: Order Comment: To be used after initial monthly order expires Result Comment: Clas s II Antigen Microbeads Performed By: #### L [id number] ####[facility]ISSUE [facility]YP[facility] (HISTOTRAC)[address] [place] [address] [facility] MM screening mammo BI w/CADo n 07-30-2023 MM screening mammo BI w/CAD [facility] [place] [address] Mammography Report Signed Patient: Mandeep Puri MR#: [id number] 15 : 1975 Acct:[id number] Age/Sex: 47 / F ADM Date: 07/30/23 Loc: [place] Room: Type: [facility] Attending Dr: Referral Self Copies [...] Messina Jr., D.O.07/30/2023 4:05 PM Dictation Location: [facility] Transcribed By: [facility] 07/30/231604 Dictated By: Evan Messina Jr, DO 07/30/231603 Signed By: 07/30/23 160 Normal [facility] CBC WITH AUTO DIFFERENTIALon 07-24-2023 Basophils (Bld) [#/Vol] 0.06 10*3/uL Normal 0.00-0.20 [facility] Comment on above: Performed By: #### L [id number] ####[facility] (BEAKER)[address] [place] [address] Basophils/100 WBC (Bld) 0.7 % Normal 0.0-1.0 [facility] Comment on above: Performed By: #### L [id number] ####[facility] ([facility]AKER)[address] [place] [address] Eosinophils (Bld) [#/Vol] 0.28 10*3/uL Normal 0.00-0.50 [facility] Comment on above: Performed By: #### L [id number] ####[facility] (BEAKER)[address] [place] [address] Eosinophils/100 WBC (Bld) 3.3 % Normal 0.0-6.0 [facility] Comment on above: Performed By: #### L [id number] ####[facility] (BEAKER)[address] [place] [address] Erythrocyte distribution width (RBC) [Ratio] 14.6 % Normal 11.5-15.0 [facility] Comment on above: Performed By: #### L [id number] ####[facility] (BE[facility]ER)[address] [place] [address] ERYTHROCYTE MEAN CORPUSCULAR HEMOGLOBIN CONCENTRATION (G/DL) BY AUTOMATED 33.2 g/dL Normal 32.0-35.0 [facility] Comment on above: Performed By: #### L [id number] ####[facility] ([facility])[address] [place] [address] Hematocrit (Bld) [Volume fraction] 39.7 % Normal 36.0-48.0 [facility] Comment on above: Performed By: #### L [id number] ####[facility] ([facility])[address] [place] [address] Hemoglobin (Bld) [Mass/Vol] 13.2 g/dL Normal 12.0-15.0 [facility] Comment on above: Performed By: #### L [id number] ####[facility] ([facility])[address] [place] [address] Immature granulocytes (Bld) [#/Vol] 0.09 10*3/uL Normal 0.00-0.20 [facility] Comment on above: Performed By: #### L [id number] ####[facility] ([facility])[address] [place] [address] Immature granulocytes/100 WBC (Bld) 1.1 % High 0.0-1.0 [facility] Comment on above: Performed By: #### L [id number] ####[facility] (BEAKER)[address] [place] [address] Lymphocytes (Bld) [#/Vol] 1.41 10*3/uL Normal 1.20-4.00 [facility] Comment on above: Performed By: #### L [id number] ####[facility] ([facility])[address] [place] [address] Lymphocytes/100 WBC (Bld) 16.5 % Low 20.0-45.0 [facility] Comment on above: Performed By: #### L [id number] ####[facility] (BEAKER)[address] [place] [address] MCH (RBC) [Entitic mass] 28.9 pg Normal 27.0-33.0 [facility] Comment on above: Performed By: #### L [id number] ####[facility] (BEAKER)[address] [place] [address] MCV (RBC) [Entitic vol] 86.9 fL Normal 82.0-98.0 [facility] Comment on above: Performed By: #### L [id number] ####[facility] (BEAKER)[address] [place] [address] Monocytes (Bld) [#/Vol] 0.44 10*3/uL Normal 0.10-1.00 [facility] Comment on above: Performed By: #### L [id number] ####[facility] ([facility])[address] [place] [address] Monocytes/100 WBC (Bld) 5.1 % Normal 5.0-12.0 [facility] Comment on above: Performed By: #### L [id number] ####[facility] ([facility])[address] [place] [address] Neutrophils (Bld) [#/Vol] 6.28 10*3/uL Normal 1.60-7.60 [facility] Comment on above: Performed By: #### L [id number] ####[facility] ([facility])[address] [place] [address] Neutrophils/100 WBC (Bld) 73.3 % High 40.0-72.0 [facility] Comment on above: Performed By: #### L [id number] ####[facility] ([facility])[address] [place] [address] NRBC (PER 100 WBCS) BY AUTOMATED COUNT 0.0 % Normal 0 [facility] Comment on above: Performed By: #### L [id number] ####[facility] ([facility])[address] [place] [address] PLATELETS (10*3/UL) IN BLOOD AUTOMATED COUNT 371 10*3/uL Normal 150-400 [facility] Comment on above: Performed By: #### L [id number] ####[facility] (BEAKER)[address] [place] [address] RBC (Bld) [#/Vol] 4.57 10*6/uL Normal 3.80-5.00 [facility] Comment on above: Performed By: #### L [id number] ####[facility] (BEAKER)[address] [place] [address] WBC (Bld) [#/Vol] 8.56 10*3/uL Normal 4.00-10.60 [facility] Comment on above: Performed By: #### L [id number] ####[facility] ([facility])[address] [place] [address] Labon 07-24-2023 Lab Normal [facility] Orders Onlyon 07-24-2023 Orders Only Normal [facility] BASIC METABOLIC PANELon 07-06 Anion gap [Moles/Vol] 16 mmol/L Normal 7-20 [facility] Comment on above: Performed By: #### L [id number] ####[facility] ([facility])[address] [place] [address] Calcium [Mass/Vol] 9.7 mg/dL Normal 8.6-10.3 [facility] Comment on above: Performed By: #### L [id number] ####[facility] (BEAKER)[address] [place] [address] Chloride [Moles/Vol] 104 mmol/L Normal 98-107 [facility] Comment on above: Performed By: #### L [id number] ####[facility] (BEAKER)[address] [place] [address] CO2 [Moles/Vol] 23 mmol/L Normal 21-31 [facility] Comment on above: Performed By: #### L [id number] ####[facility] (BEAKER)[address] [place] [address] Creatinine [Mass/Vol] 1.18 mg/dL Normal 0.60-1.20 [facility] Comment on above: Performed By: #### L [id number] ####[facility] ([facility])[address] [place] [address] GLOMERULAR FILTRATION RATE ML/MIN/1.73 SQ M.PREDICTED 57.3 mL/min/1.73m*2 Low >60.0 [facility] Comment on above: Result Comment: [facility]???s estimated glomerular filtration rate (eGFR) will no [...] of individuals. Performed By: #### L [id number] ####[facility] [facility] ([facility])[address] [place] [address] Glucose [Mass/Vol] 134 mg/dL High 70-100 [facility] Comment on above: Performed By: #### L [id number] ####[facility] ([facility])[address] [place] [address] Potassium [Moles/Vol] 3.5 mmol/L Normal 3.5-5.1 [facility] Comment on above: Performed By: #### L [id number] ####[facility] ([facility])[address] [place] [address] Sodium [Moles/Vol] 139 mmol/L Normal 136-145 [facility] Comment on above: Performed By: #### L [id number] ####[facility] ([facility])[address] [place] [address] Urea nitrogen [Mass/Vol] 16 mg/dL Normal 7-25 [facility] Comment on above: Performed By: #### L [id number] ####[facility] ([facility])[address] [place] [address] UREA NITROGEN/CREATININE (MASS RATIO) IN SER/PLAS 13.6 Normal [facility] Comment on above: Performed By: #### L [id number] ####[facility] ([facility])[address] [place] [address] CBC WITH AUTO DIFFERENTIALon 07-17-2023 Basophils (Bld) [#/Vol] 0.05 10*3/uL Normal 0.00-0.20 [facility] Comment on above: Performed By: #### L [id number] ####[facility] ([facility])[address] [place] [address] Basophils/100 WBC (Bld) 0.6 % Normal 0.0-1.0 [facility] Comment on above: Performed By: #### L [id number] ####[facility] ([facility])[address] [place] [address] Eosinophils (Bld) [#/Vol] 0.21 10*3/uL Normal 0.00-0.50 [facility] Comment on above: Performed By: #### L [id number] ####[facility] ([facility])[address] [place] [address] Eosinophils/100 WBC (Bld) 2.7 % Normal 0.0-6.0 [facility] Comment on above: Performed By: #### L [id number] ####[facility] ([facility])[address] [place] [address] Erythrocyte distribution width (RBC) [Ratio] 14.3 % Normal 11.5-15.0 [facility] Comment on above: Performed By: #### L [id number] ####[facility] ([facility])[address] [place] [address] ERYTHROCYTE MEAN CORPUSCULAR HEMOGLOBIN CONCENTRATION (G/DL) BY AUTOMATED 32.6 g/dL Normal 32.0-35.0 [facility] Comment on above: Performed By: #### L [id number] ####[facility] ([facility])[address] [place] [address] Hematocrit (Bld) [Volume fraction] 38.3 % Normal 36.0-48.0 [facility] Comment on above: Performed By: #### L [id number] ####[facility] ([facility])[address] [place] [address] Hemoglobin (Bld) [Mass/Vol] 12.5 g/dL Normal 12.0-15.0 [facility] Comment on above: Performed By: #### L [id number] ####[facility] ([facility])[address] [place] [address] Immature granulocytes (Bld) [#/Vol] 0.10 10*3/uL Normal 0.00-0.20 [facility] Comment on above: Performed By: #### L [id number] ####[facility] ([facility])[address] [place] [address] Immature granulocytes/100 WBC (Bld) 1.3 % High 0.0-1.0 [facility] Comment on above: Performed By: #### L [id number] ####[facility] ([facility])[address] [place] [address] Lymphocytes (Bld) [#/Vol] 1.37 10*3/uL Normal 1.20-4.00 [facility] Comment on above: Performed By: #### L [id number] ####[facility] ([facility])[address] [place] [address] Lymphocytes/100 WBC (Bld) 17.4 % Low 20.0-45.0 [facility] Comment on above: Performed By: #### L [id number] ####[facility] ([facility])[address] [place] [address] MCH (RBC) [Entitic mass] 28.9 pg Normal 27.0-33.0 [facility] Comment on above: Performed By: #### L [id number] ####[facility] ([facility])[address] [place] [address] MCV (RBC) [Entitic vol] 88.5 fL Normal 82.0-98.0 [facility] Comment on above: Performed By: #### L [id number] ####[facility] ([facility])[address] [place] [address] Monocytes (Bld) [#/Vol] 0.44 10*3/uL Normal 0.10-1.00 [facility] Comment on above: Performed By: #### L [id number] ####[facility] ([facility])[address] [place] [address] Monocytes/100 WBC (Bld) 5.6 % Normal 5.0-12.0 [facility] Comment on above: Performed By: #### L [id number] ####[facility] ([facility])[address] [place] [address] Neutrophils (Bld) [#/Vol] 5.69 10*3/uL Normal 1.60-7.60 [facility] Comment on above: Performed By: #### L [id number] ####[facility] ([facility])[address] [place] [address] Neutrophils/100 WBC (Bld) 72.4 % High 40.0-72.0 [facility] Comment on above: Performed By: #### L [id number] ####[facility] ([facility])[address] [place] [address] NRBC (PER 100 WBCS) BY AUTOMATED COUNT 0.0 % Normal 0 [facility] Comment on above: Performed By: #### L [id number] ####[facility] ([facility])[address] [place] [address] PLATELETS (10*3/UL) IN BLOOD AUTOMATED COUNT 349 10*3/uL Normal 150-400 [facility] Comment on above: Performed By: #### L [id number] ####[facility] ([facility])[address] [place] [address] RBC (Bld) [#/Vol] 4.33 10*6/uL Normal 3.80-5.00 [facility] Comment on above: Performed By: #### L [id number] ####[facility] ([facility])[address] [place] [address] WBC (Bld) [#/Vol] 7.86 10*3/uL Normal 4.00-10.60 [facility] Comment on above: Performed By: #### L [id number] ####[facility] ([facility])[address] [place] [address] HEPATIC FUNCTION PANELon Albumin [Mass/Vol] 4.4 g/dL Normal 3.5-5.7 [facility] Comment on above: Performed By: #### L [id number] ####[facility] ([facility])[address] [place] [address] ALP [Catalytic activity/Vol] 83 U/L Normal 34-104 [facility] Comment on above: Performed By: #### L [id number] ####[facility] ([facility])[address] [place] [address] ALT [Catalytic activity/Vol] 25 U/L Normal 7-52 [facility] Comment on above: Performed By: #### L [id number] ####[facility] ([facility])[address] [place] [address] AST [Catalytic activity/Vol] 21 U/L Normal 13-39 [facility] Comment on above: Performed By: #### L [id number] ####[facility] ([facility])[address] [place] [address] Bilirubin [Mass/Vol] 0.4 mg/dL Normal 0.3-1.0 [facility] Comment on above: Performed By: #### L [id number] ####[facility] ([facility])[address] [place] [address] Magnesium [Mass/Vol] 0.1 mg/dL Normal 0-0.2 [facility] Comment on above: Performed By: #### L [id number] ####[facility] ([facility])[address] [place] [address] Protein [Mass/Vol] 7.3 g/dL Normal 6.0-8.3 [facility] Comment on above: Performed By: #### L [id number] ####[facility] ([facility])[address] [place] [address] Labon 07-17-2023 Lab Normal [facility] MAGNESIUMon 07-17-2023 Magnesium [Mass/Vol] 1.6 mg/dL Low 1.9-2.7 [facility] Comment on above: Performed By: #### L [id number] ####[facility] ([facility])[address] [place] [address] Orders Onlyon 07-17-2023 Orders Only Normal [facility] PHOSPHORUSon 07-17-2023 Magnesium [Mass/Vol] 3.3 mg/dL Normal 2.5-5.0 [facility] Comment on above: Performed By: #### L [id number] ####[facility] ([facility])[address] [place] [address] TACROLIMUS LEVELon Tacrolimus (Bld) [Mass/Vol] 6.5 ng/mL Normal 5.0-20.0 [facility] Comment on above: Result Comment: The [employer] Tacrolimus assay is a delayed one-step immunoassay for the quantitative determination of tacrolimus in human whole blood using the chemiluminescent microparticle immunoassay (CMIA) technology with flexible assay protocols, referred to as Chemiflex. Performed By: #### L [id number] ####[facility] ([facility])[address] [place] [address] URIC ACIDon 07-17-2023 Magnesium [Mass/Vol] 4.9 mg/dL Normal 2.3-6.6 [facility] Comment on above: Performed By: #### L [id number] ####[facility] ([facility])[address] [place] [address] 29on 07-16-2023 29 Addended by: LU STEPHENS on: 07/16/2023 03:23 PM Modules accepted: Orders Normal [facility] Documentationon 07-16-2023 Documentation Normal [facility] BASIC METABOLIC PANELon 09-2 Anion gap [Moles/Vol] 13 mmol/L Normal 7-20 [facility] Comment on above: Performed By: #### L [id number] ####[facility] ([facility])[address] [place] [address] Calcium [Mass/Vol] 9.6 mg/dL Normal 8.6-10.3 [facility] Comment on above: Performed By: #### L [id number] ####[facility] ([facility])[address] [place] [address] Chloride [Moles/Vol] 102 mmol/L Normal 98-107 [facility] Comment on above: Performed By: #### L [id number] ####[facility] ([facility])[address] [place] [address] CO2 [Moles/Vol] 25 mmol/L Normal 21-31 [facility] Comment on above: Performed By: #### L [id number] ####[facility] ([facility])[address] [place] [address] Creatinine [Mass/Vol] 1.26 mg/dL High 0.60-1.20 [facility] Comment on above: Performed By: #### L [id number] ####[facility] ([facility])[address] [place] [address] GLOMERULAR FILTRATION RATE ML/MIN/1.73 SQ M.PREDICTED 53.0 mL/min/1.73m*2 Low >60.0 [facility] Comment on above: Result Comment: The [facility]???s estimated glomerular filtration rate (eGFR) will no [...] of individuals. Performed By: #### L [id number] ####[facility] ([facility])[address] [place] [address] Glucose [Mass/Vol] 128 mg/dL High 70-100 [facility] Comment on above: Performed By: #### L [id number] ####[facility] ([facility])[address] [place] [address] Potassium [Moles/Vol] 3.1 mmol/L Low 3.5-5.1 [facility] Comment on above: Performed By: #### L [id number] ####[facility] ([facility])[address] [place] [address] Sodium [Moles/Vol] 137 mmol/L Normal 136-145 [facility] Comment on above: Performed By: #### L [id number] ####[facility] ([facility])[address] [place] [address] Urea nitrogen [Mass/Vol] 14 mg/dL Normal 7-25 [facility] Comment on above: Performed By: #### L [id number] ####[facility] ([facility])[address] [place] [address] UREA NITROGEN/CREATININE (MASS RATIO) IN SER/PLAS 11.1 Normal [facility] Comment on above: Performed By: #### L [id number] ####[facility] ([facility])[address] [place] [address] CBC WITH AUTO DIFFERENTIALon 06-28-2023 Basophils (Bld) [#/Vol] 0.06 10*3/uL Normal 0.00-0.20 [facility] Comment on above: Performed By: #### L [id number] ####[facility] ([facility])[address] [place] [address] Basophils/100 WBC (Bld) 0.6 % Normal 0.0-1.0 [facility] Comment on above: Performed By: #### L [id number] ####[facility] ([facility])[address] [place] [address] Eosinophils (Bld) [#/Vol] 0.18 10*3/uL Normal 0.00-0.50 [facility] Comment on above: Performed By: #### L [id number] ####[facility] ([facility])[address] [place] [address] Eosinophils/100 WBC (Bld) 1.8 % Normal 0.0-6.0 [facility] Comment on above: Performed By: #### L [id number] ####[facility] ([facility])[address] [place] [address] Erythrocyte distribution width (RBC) [Ratio] 14.5 % Normal 11.5-15.0 [facility] Comment on above: Performed By: #### L [id number] ####[facility] ([facility])[address] [place] [address] ERYTHROCYTE MEAN CORPUSCULAR HEMOGLOBIN CONCENTRATION (G/DL) BY AUTOMATED 33.1 g/dL Normal 32.0-35.0 [facility] Comment on above: Performed By: #### L [id number] ####[facility] ([facility])[address] [place] [address] Hematocrit (Bld) [Volume fraction] 40.5 % Normal 36.0-48.0 [facility] Comment on above: Performed By: #### L [id number] ####[facility] ([facility])[address] [place] [address] Hemoglobin (Bld) [Mass/Vol] 13.4 g/dL Normal 12.0-15.0 [facility] Comment on above: Performed By: #### L [id number] ####[facility] ([facility])[address] [place] [address] Immature granulocytes (Bld) [#/Vol] 0.13 10*3/uL Normal 0.00-0.20 [facility] Comment on above: Performed By: #### L [id number] ####[facility] ([facility])[address] [place] [address] Immature granulocytes/100 WBC (Bld) 1.3 % High 0.0-1.0 [facility] Comment on above: Performed By: #### L [id number] ####[facility] ([facility])[address] [place] [address] Lymphocytes (Bld) [#/Vol] 1.30 10*3/uL Normal 1.20-4.00 [facility] Comment on above: Performed By: #### L [id number] ####[facility] ([facility])[address] [place] [address] Lymphocytes/100 WBC (Bld) 13.3 % Low 20.0-45.0 [facility] Comment on above: Performed By: #### L [id number] ####[facility] ([facility])[address] [place] [address] MCH (RBC) [Entitic mass] 29.2 pg Normal 27.0-33.0 [facility] Comment on above: Performed By: #### L [id number] ####[facility] ([facility])[address] [place] [address] MCV (RBC) [Entitic vol] 88.2 fL Normal 82.0-98.0 [facility] Comment on above: Performed By: #### L [id number] ####[facility] ([facility])[address] [place] [address] Monocytes (Bld) [#/Vol] 0.51 10*3/uL Normal 0.10-1.00 [facility] Comment on above: Performed By: #### L [id number] ####[facility] ([facility])[address] [place] [address] Monocytes/100 WBC (Bld) 5.2 % Normal 5.0-12.0 [facility] Comment on above: Performed By: #### L [id number] ####[facility] ([facility])[address] [place] [address] Neutrophils (Bld) [#/Vol] 7.62 10*3/uL High 1.60-7.60 [facility] Comment on above: Performed By: #### L [id number] ####[facility] ([facility])[address] [place] [address] Neutrophils/100 WBC (Bld) 77.8 % High 40.0-72.0 [facility] Comment on above: Performed By: #### L [id number] ####[facility] ([facility])[address] [place] [address] NRBC (PER 100 WBCS) BY AUTOMATED COUNT 0.0 % Normal 0 [facility] Comment on above: Performed By: #### L [id number] ####[facility] ([facility])[address] [place] [address] PLATELETS (10*3/UL) IN BLOOD AUTOMATED COUNT 334 10*3/uL Normal 150-400 [facility] Comment on above: Performed By: #### L [id number] ####[facility] ([facility])[address] [place] [address] RBC (Bld) [#/Vol] 4.59 10*6/uL Normal 3.80-5.00 [facility] Comment on above: Performed By: #### L [id number] ####[facility] ([facility])[address] [place] [address] WBC (Bld) [#/Vol] 9.80 10*3/uL Normal 4.00-10.60 [facility] Comment on above: Performed By: #### L [id number] ####[facility] ([facility])[address] [place] [address] HEPATIC FUNCTION PANELon Albumin [Mass/Vol] 4.7 g/dL Normal 3.5-5.7 [facility] Comment on above: Performed By: #### L [id number] ####[facility] ([facility])[address] [place] [address] ALP [Catalytic activity/Vol] 91 U/L Normal 34-104 [facility] Comment on above: Performed By: #### L [id number] ####[facility] ([facility])[address] [place] [address] ALT [Catalytic activity/Vol] 29 U/L Normal 7-52 [facility] Comment on above: Performed By: #### L [id number] ####[facility] ([facility])[address] [place] [address] AST [Catalytic activity/Vol] 25 U/L Normal 13-39 [facility] Comment on above: Performed By: #### L [id number] ####[facility] ([facility])[address] [place] [address] Bilirubin [Mass/Vol] 0.5 mg/dL Normal 0.3-1.0 [facility] Comment on above: Performed By: #### L [id number] ####[facility] ([facility])[address] [place] [address] Magnesium [Mass/Vol] 0.1 mg/dL Normal 0-0.2 [facility] Comment on above: Performed By: #### L [id number] ####[facility] ([facility])[address] [place] [address] Protein [Mass/Vol] 7.9 g/dL Normal 6.0-8.3 [facility] Comment on above: Performed By: #### L [id number] ####[facility] ([facility])[address] [place] [address] LIPID PANELon 06-28-2023 CHOL/HDL 4.1 mg/dL Normal [facility] Comment on above: Performed By: #### L [id number] ####[facility] ([facility])[address] [place] [address] Cholesterol [Mass/Vol] 192 mg/dL Normal 120-200 [facility] Comment on above: Performed By: #### L [id number] ####[facility] ([facility])[address] [place] [address] Magnesium [Mass/Vol] 228 mg/dL High 40-149 [facility] Comment on above: Result Comment: TRIG LYCERIDE REFERENCE RANGE:20 YEARS AND OLDER CARDIOVASCULAR RISKLESS THAN 150 mg/dL LOW [id number] TO 199 mg/dL BORDERLINE [id number] mg/dL AND GREATER HIGH RISK Performed By: #### L [id number] ####[facility] ([facility])[address] [place] [address] Magnesium [Mass/Vol] 99 mg/dL Normal 0-160 [facility] Comment on above: Performed By: #### L [id number] ####[facility] ([facility])[address] [place] [address] Magnesium [Mass/Vol] 47 mg/dL Normal 23-92 [facility] Comment on above: Performed By: #### L [id number] ####[facility] ([facility])[address] [place] [address] NON HDL CHOL. (LDL+VLDL) 145 Normal [facility] Comment on above: Performed By: #### L [id number] ####[facility] ([facility])[address] [place] [address] TOTAL VLDL-C 46 mg/dL High 0-40 [facility] Comment on above: Performed By: #### L [id number] ####[facility] ([facility])[address] [place] [address] Labon 06-28-2023 Lab Normal [facility] MAGNESIUMon 06-28-2023 Magnesium [Mass/Vol] 1.4 mg/dL Low 1.9-2.7 [facility] Comment on above: Performed By: #### L [id number] ####[facility] ([facility])[address] [place] [address] PHOSPHORUSon 06-28-2023 Magnesium [Mass/Vol] 2.7 mg/dL Normal 2.5-5.0 [facility] Comment on above: Performed By: #### L [id number] ####[facility] ([facility])[address] [place] [address] TACROLIMUS LEVELon 3 Tacrolimus (Bld) [Mass/Vol] 6.9 ng/mL Normal 5.0-20.0 [facility] Comment on above: Result Comment: The [employer] Tacrolimus assay is a delayed one-step immunoassay for the quantitative determination of tacrolimus in human whole blood using the chemiluminescent microparticle immunoassay (CMIA) technology with flexible assay protocols, referred to as Chemiflex. Performed By: #### L [id number] ####[facility] ([facility])[address] [place] [address] URIC ACIDon 06-28-2023 Magnesium [Mass/Vol] 5.0 mg/dL Normal 2.3-6.6 [facility] Comment on above: Performed By: #### L [id number] ####[facility] ([facility])[address] [place] [address] 36on 06-23-2023 36 I reviewed the case with the resident. I agree with the assessment and plan as documented in the resident's note. Ming Kidd, PharmD, BCTXP Normal [facility] Telephoneon 06-17-2023 Telephone Normal [facility] BASIC METABOLIC PANELon 05-07 Anion gap [Moles/Vol] 13 mmol/L Normal 7-20 [facility] Comment on above: Performed By: #### L [id number] ####[facility] ([facility])[address] [place] [address] Calcium [Mass/Vol] 9.5 mg/dL Normal 8.6-10.3 [facility] Comment on above: Performed By: #### L [id number] ####[facility] ([facility])[address] [place] [address] Chloride [Moles/Vol] 101 mmol/L Normal 98-107 [facility] Comment on above: Performed By: #### L [id number] ####[facility] ([facility])[address] [place] [address] CO2 [Moles/Vol] 27 mmol/L Normal 21-31 [facility] Comment on above: Performed By: #### L [id number] ####[facility] ([facility])[address] [place] [address] Creatinine [Mass/Vol] 1.28 mg/dL High 0.60-1.20 [facility] Comment on above: Performed By: #### L [id number] ####[facility] ([facility])[address] [place] [address] GLOMERULAR FILTRATION RATE ML/MIN/1.73 SQ M.PREDICTED 52.0 mL/min/1.73m*2 Low >60.0 [facility] Comment on above: Result Comment: The [facility]???s estimated glomerular filtration rate (eGFR) will no [...] of individuals. Performed By: #### L [id number] ####[facility] ([facility])[address] [place] [address] Glucose [Mass/Vol] 163 mg/dL High 70-100 [facility] Comment on above: Performed By: #### L [id number] ####[facility] ([facility])[address] [place] [address] Potassium [Moles/Vol] 3.1 mmol/L Low 3.5-5.1 [facility] Comment on above: Performed By: #### L [id number] ####[facility] ([facility])[address] [place] [address] Sodium [Moles/Vol] 138 mmol/L Normal 136-145 [facility] Comment on above: Performed By: #### L [id number] ####[facility] ([facility])[address] [facility] [address] Urea nitrogen [Mass/Vol] 18 mg/dL Normal 7-25 [facility] Comment on above: Performed By: #### L [id number] ####[facility] ([facility])[address] [place] [address] UREA NITROGEN/CREATININE (MASS RATIO) IN SER/PLAS 14.1 Normal [facility] Comment on above: Performed By: #### L [id number] ####[facility] ([facility])[address] [place] [address] CBC WITH AUTO DIFFERENTIALon 05-29-2023 Basophils (Bld) [#/Vol] 0.06 10*3/uL Normal 0.00-0.20 [facility] Comment on above: Performed By: #### L [id number] ####[facility] ([facility])[address] [place] [address] Basophils/100 WBC (Bld) 0.6 % Normal 0.0-1.0 [facility] Comment on above: Performed By: #### L [id number] ####[facility] ([facility])[address] [place] [address] Eosinophils (Bld) [#/Vol] 0.18 10*3/uL Normal 0.00-0.50 [facility] Comment on above: Performed By: #### L [id number] ####[facility] ([facility])[address] [place] [address] Eosinophils/100 WBC (Bld) 1.9 % Normal 0.0-6.0 [facility] Comment on above: Performed By: #### L [id number] ####[facility] ([facility])[address] [place] [address] Erythrocyte distribution width (RBC) [Ratio] 14.3 % Normal 11.5-15.0 [facility] Comment on above: Performed By: #### L [id number] ####[facility] ([facility])[address] [place] [address] ERYTHROCYTE MEAN CORPUSCULAR HEMOGLOBIN CONCENTRATION (G/DL) BY AUTOMATED 32.4 g/dL Normal 32.0-35.0 [facility] Comment on above: Performed By: #### L [id number] ####[facility] ([facility])[address] [place] [address] Hematocrit (Bld) [Volume fraction] 37.4 % Normal 36.0-48.0 [facility] Comment on above: Performed By: #### L [id number] ####[facility] ([facility])[address] [place] [address] Hemoglobin (Bld) [Mass/Vol] 12.1 g/dL Normal 12.0-15.0 [facility] Comment on above: Performed By: #### L [id number] ####[facility] ([facility])[address] [place] [address] Immature granulocytes (Bld) [#/Vol] 0.17 10*3/uL Normal 0.00-0.20 [facility] Comment on above: Performed By: #### L [id number] ####[facility] ([facility])[address] [place] [address] Immature granulocytes/100 WBC (Bld) 1.8 % High 0.0-1.0 [facility] Comment on above: Performed By: #### L [id number] ####[facility] ([facility])[address] [place] [address] Lymphocytes (Bld) [#/Vol] 1.30 10*3/uL Normal 1.20-4.00 [facility] Comment on above: Performed By: #### L [id number] ####[facility] ([facility])[address] [place] [address] Lymphocytes/100 WBC (Bld) 13.4 % Low 20.0-45.0 [facility] Comment on above: Performed By: #### L [id number] ####[facility] ([facility])[address] [place] [address] MCH (RBC) [Entitic mass] 28.8 pg Normal 27.0-33.0 [facility] Comment on above: Performed By: #### L [id number] ####[facility] ([facility])[address] [place] [address] MCV (RBC) [Entitic vol] 89.0 fL Normal 82.0-98.0 [facility] Comment on above: Performed By: #### L [id number] ####[facility] ([facility])[address] [place] [address] Monocytes (Bld) [#/Vol] 0.56 10*3/uL Normal 0.10-1.00 [facility] Comment on above: Performed By: #### L [id number] ####[facility] ([facility])[address] [place] [address] Monocytes/100 WBC (Bld) 5.8 % Normal 5.0-12.0 [facility] Comment on above: Performed By: #### L [id number] ####[facility] ([facility])[address] [place] [address] Neutrophils (Bld) [#/Vol] 7.43 10*3/uL Normal 1.60-7.60 [facility] Comment on above: Performed By: #### L [id number] ####[facility] ([facility])[address] [place] [address] Neutrophils/100 WBC (Bld) 76.5 % High 40.0-72.0 [facility] Comment on above: Performed By: #### L [id number] ####[facility] ([facility])[address] [place] [address] NRBC (PER 100 WBCS) BY AUTOMATED COUNT 0.0 % Normal 0 [facility] Comment on above: Performed By: #### L [id number] ####[facility] ([facility])[address] [place] [address] PLATELETS (10*3/UL) IN BLOOD AUTOMATED COUNT 331 10*3/uL Normal 150-400 [facility] Comment on above: Performed By: #### L [id number] ####[facility] ([facility])[address] [place] [address] RBC (Bld) [#/Vol] 4.20 10*6/uL Normal 3.80-5.00 [facility] Comment on above: Performed By: #### L [id number] ####[facility] ([facility])[address] [place] [address] WBC (Bld) [#/Vol] 9.70 10*3/uL Normal 4.00-10.60 [facility] Comment on above: Performed By: #### L [id number] ####[facility] ([facility])[address] [place] [address] HEPATIC FUNCTION PANELon Albumin [Mass/Vol] 4.5 g/dL Normal 3.5-5.7 [facility] Comment on above: Performed By: #### L [id number] ####[facility] ([facility])[address] [place] [address] ALP [Catalytic activity/Vol] 87 U/L Normal 34-104 [facility] Comment on above: Performed By: #### L [id number] ####[facility] ([facility])[address] [place] [address] ALT [Catalytic activity/Vol] 29 U/L Normal 7-52 [facility] Comment on above: Performed By: #### L [id number] ####[facility] ([facility])[address] [place] [address] AST [Catalytic activity/Vol] 24 U/L Normal 13-39 [facility] Comment on above: Performed By: #### L [id number] ####[facility] ([facility])[address] [place] [address] Bilirubin [Mass/Vol] 0.4 mg/dL Normal 0.3-1.0 [facility] Comment on above: Performed By: #### L [id number] ####[facility] ([facility])[address] [place] [address] Magnesium [Mass/Vol] 0.0 mg/dL Normal 0-0.2 [facility] Comment on above: Performed By: #### L [id number] ####[facility] ([facility])[address] [place] [address] Protein [Mass/Vol] 7.4 g/dL Normal 6.0-8.3 [facility] Comment on above: Performed By: #### L [id number] ####[facility] ([facility])[address] [place] [address] Labon 05-29-2023 Lab Normal [facility] MAGNESIUMon 05-29-2023 Magnesium [Mass/Vol] 1.7 mg/dL Low 1.9-2.7 [facility] Comment on above: Performed By: #### L [id number] ####[facility] ([facility])[address] [place] [address] PHOSPHORUSon 05-29-2023 Magnesium [Mass/Vol] 2.8 mg/dL Normal 2.5-5.0 [facility] Comment on above: Performed By: #### L [id number] ####[facility] ([facility])[address] [place] [address] TACROLIMUS LEVELon Tacrolimus (Bld) [Mass/Vol] 5.6 ng/mL Normal 5.0-20.0 [facility] Comment on above: Result Comment: The [employer] Tacrolimus assay is a delayed one-step immunoassay for the quantitative determination of tacrolimus in human whole blood using the chemiluminescent microparticle immunoassay (CMIA) technology with flexible assay protocols, referred to as Chemiflex. Performed By: #### L [id number] ####[facility] ([facility])[address] [place] [address] URIC ACIDon 05-29-2023 Magnesium [Mass/Vol] 5.0 mg/dL Normal 2.3-6.6 [facility] Comment on above: Performed By: #### L [id number] ####[facility] ([facility])[address] [place] [address] BASIC METABOLIC PANELon 04-06 Anion gap [Moles/Vol] 13 mmol/L Normal 7-20 [facility] Comment on above: Performed By: #### L [id number] ####[facility] ([facility])[address] [place] [address] Calcium [Mass/Vol] 9.5 mg/dL Normal 8.6-10.3 [facility] Comment on above: Performed By: #### L [id number] ####[facility] ([facility])[address] [place] [address] Chloride [Moles/Vol] 104 mmol/L Normal 98-107 [facility] Comment on above: Performed By: #### L [id number] ####[facility] ([facility])[address] [place] [address] CO2 [Moles/Vol] 22 mmol/L Normal 21-31 [facility] Comment on above: Performed By: #### L [id number] ####[facility] ([facility])[address] [place] [address] Creatinine [Mass/Vol] 1.25 mg/dL High 0.60-1.20 [facility] Comment on above: Performed By: #### L [id number] ####[facility] ([facility])[address] [place] [address] GLOMERULAR FILTRATION RATE ML/MIN/1.73 SQ M.PREDICTED 53.5 mL/min/1.73m*2 Low >60.0 [facility] Comment on above: Result Comment: The [facility]???s estimated glomerular filtration rate (eGFR) will no [...] of individuals. Performed By: #### L [id number] ####[facility] ([facility])[address] [place] [address] Glucose [Mass/Vol] 189 mg/dL High 70-100 [facility] Comment on above: Performed By: #### L [id number] ####[facility] ([facility])[address] [place] [address] Potassium [Moles/Vol] 4.0 mmol/L Normal 3.5-5.1 [facility] Comment on above: Performed By: #### L [id number] ####[facility] ([facility])[address] [place] [address] Sodium [Moles/Vol] 135 mmol/L Low 136-145 [facility] Comment on above: Performed By: #### L [id number] ####[facility] ([facility])[address] [place] [address] Urea nitrogen [Mass/Vol] 19 mg/dL Normal 7-25 [facility] Comment on above: Performed By: #### L [id number] ####[facility] ([facility])[address] [place] [address] UREA NITROGEN/CREATININE (MASS RATIO) IN SER/PLAS 15.2 Normal [facility] Comment on above: Performed By: #### L [id number] ####[facility] ([facility])[address] [place] [address] CBC WITH AUTO DIFFERENTIALon 04-30-2023 Basophils (Bld) [#/Vol] 0.05 10*3/uL Normal 0.00-0.20 [facility] Comment on above: Performed By: #### L [id number] ####[facility] ([facility])[address] [place] [address] Basophils/100 WBC (Bld) 0.7 % Normal 0.0-1.0 [facility] Comment on above: Performed By: #### L [id number] ####[facility] ([facility])[address] [place] [address] Eosinophils (Bld) [#/Vol] 0.16 10*3/uL Normal 0.00-0.50 [facility] Comment on above: Performed By: #### L [id number] ####[facility] ([facility])[address] [place] [address] Eosinophils/100 WBC (Bld) 2.1 % Normal 0.0-6.0 [facility] Comment on above: Performed By: #### L [id number] ####[facility] ([facility])[address] [place] [address] Erythrocyte distribution width (RBC) [Ratio] 14.3 % Normal 11.5-15.0 [facility] Comment on above: Performed By: #### L [id number] ####[facility] ([facility])[address] [place] [address] ERYTHROCYTE MEAN CORPUSCULAR HEMOGLOBIN CONCENTRATION (G/DL) BY AUTOMATED 33.1 g/dL Normal 32.0-35.0 [facility] Comment on above: Performed By: #### L [id number] ####[facility] ([facility])[address] [place] [address] Hematocrit (Bld) [Volume fraction] 35.9 % Low 36.0-48.0 [facility] Comment on above: Performed By: #### L [id number] ####[facility] ([facility])[address] [place] [address] Hemoglobin (Bld) [Mass/Vol] 11.9 g/dL Low 12.0-15.0 [facility] Comment on above: Performed By: #### L [id number] ####[facility] ([facility])[address] [place] [address] Immature granulocytes (Bld) [#/Vol] 0.12 10*3/uL Normal 0.00-0.20 [facility] Comment on above: Performed By: #### L [id number] ####[facility] ([facility])[address] [place] [address] Immature granulocytes/100 WBC (Bld) 1.6 % High 0.0-1.0 [facility] Comment on above: Performed By: #### L [id number] ####[facility] ([facility])[address] [place] [address] Lymphocytes (Bld) [#/Vol] 1.30 10*3/uL Normal 1.20-4.00 [facility] Comment on above: Performed By: #### L [id number] ####[facility] ([facility])[address] [place] [address] Lymphocytes/100 WBC (Bld) 16.9 % Low 20.0-45.0 [facility] Comment on above: Performed By: #### L [id number] ####[facility] ([facility])[address] [place] [address] MCH (RBC) [Entitic mass] 29.6 pg Normal 27.0-33.0 [facility] Comment on above: Performed By: #### L [id number] ####[facility] ([facility])[address] [place] [address] MCV (RBC) [Entitic vol] 89.3 fL Normal 82.0-98.0 [facility] Comment on above: Performed By: #### L [id number] ####[facility] ([facility])[address] [place] [address] Monocytes (Bld) [#/Vol] 0.46 10*3/uL Normal 0.10-1.00 [facility] Comment on above: Performed By: #### L [id number] ####[facility] ([facility])[address] [place] [address] Monocytes/100 WBC (Bld) 6.0 % Normal 5.0-12.0 [facility] Comment on above: Performed By: #### L [id number] ####[facility] ([facility])[address] [place] [address] Neutrophils (Bld) [#/Vol] 5.58 10*3/uL Normal 1.60-7.60 [facility] Comment on above: Performed By: #### L [id number] ####[facility] ([facility])[address] [place] [address] Neutrophils/100 WBC (Bld) 72.7 % High 40.0-72.0 [facility] Comment on above: Performed By: #### L [id number] ####[facility] ([facility])[address] [place] [address] NRBC (PER 100 WBCS) BY AUTOMATED COUNT 0.0 % Normal 0 [facility] Comment on above: Performed By: #### L [id number] ####[facility] ([facility])[address] [place] [address] PLATELETS (10*3/UL) IN BLOOD AUTOMATED COUNT 295 10*3/uL Normal 150-400 [facility] Comment on above: Performed By: #### L [id number] ####[facility] ([facility])[address] [place] [address] RBC (Bld) [#/Vol] 4.02 10*6/uL Normal 3.80-5.00 [facility] Comment on above: Performed By: #### L [id number] ####[facility] ([facility])[address] [place] [address] WBC (Bld) [#/Vol] 7.67 10*3/uL Normal 4.00-10.60 [facility] Comment on above: Performed By: #### L [id number] ####[facility] ([facility])[address] [place] [address] HEPATIC FUNCTION PANELon Albumin [Mass/Vol] 4.6 g/dL Normal 3.5-5.7 [facility] Comment on above: Performed By: #### L [id number] ####[facility] ([facility])[address] [place] [address] ALP [Catalytic activity/Vol] 82 U/L Normal 34-104 [facility] Comment on above: Performed By: #### L [id number] ####[facility] ([facility])[address] [place] [address] ALT [Catalytic activity/Vol] 25 U/L Normal 7-52 [facility] Comment on above: Performed By: #### L [id number] ####[facility] ([facility])[address] [place] [address] AST [Catalytic activity/Vol] 19 U/L Normal 13-39 [facility] Comment on above: Performed By: #### L [id number] ####[facility] ([facility])[address] [place] [address] Bilirubin [Mass/Vol] 0.5 mg/dL Normal 0.3-1.0 [facility] Comment on above: Performed By: #### L [id number] ####[facility] ([facility])[address] [place] [address] Magnesium [Mass/Vol] 0.1 mg/dL Normal 0-0.2 [facility] Comment on above: Performed By: #### L [id number] ####[facility] ([facility])[address] [place] [address] Protein [Mass/Vol] 7.2 g/dL Normal 6.0-8.3 [facility] Comment on above: Performed By: #### L [id number] ####[facility] ([facility])[address] [place] [address] Labon 04-30-2023 Lab Normal [facility] MAGNESIUMon 04-30-2023 Magnesium [Mass/Vol] 1.6 mg/dL Low 1.9-2.7 [facility] Comment on above: Performed By: #### L [id number] ####[facility] ([facility])[address] [place] [address] PANEL REACTIVE ANTIBODYon HOLD SPECIMEN Hold for add-ons. Normal [facility] Comment on above: Result Comment: Auto resulted. Performed By: #### L [id number] ####[facility] TISSUE [facility]YP[facility] (HISTOTRAC)[address] [place] [address] [place] PHOSPHORUSon 04-30-2023 Magnesium [Mass/Vol] 2.3 mg/dL Low 2.5-5.0 [facility] Comment on above: Performed By: #### L [id number] ####[facility] ([facility])[address] [place] [address] SINGLE ANTIGEN CLASS Ion AB SCREEN COMMENTS No Class I donor spe cific antibody identified Normal [facility] Comment on above: Performed By: #### L [id number] ####[facility]ISS[facility]YP[facility] (HISTOTRAC)[address] [place] [address] [place] CLASS I TESTED DATE Normal [facility] Comment on above: Performed By: #### L [id number] ####[facility]ISS[facility]YP[facility] (HISTOTRAC)[address] [place] [address] [facility] SIGNED BY Signed by Sree escamilla [facility]) [place]([facility]), [employer] Immun[facility] Comment on above: Result Comment: Clas s I Antigen Microbeads Performed By: #### L [id number] ####[facility]ISS[facility]YP[facility] (HISTOTRAC)[address] [place] [address] [place] Performed By: #### L [id number] ####[facility]YP[facility] (HISTOTRAC)[address] [place] [address] [place] SINGLE ANTIGEN CLASS 1 TEST METHOD Class I Single Antigen Normal [facility] Comment on above: Performed By: #### L [id number] ####[facility] TISSUE TYPING (HISTOTRAC)[address] [place] [address] [place] SINGLE ANTIGEN CLASS IIon AB SCREEN COMMENTS No Class II donor specific antibody identified Normal [facility] Comment on above: Performed By: #### L [id number] ####[facility] TISSUE TYPING (HISTOTRAC)[address] [place] [address] [place] CLASS II TESTED DATE [facility] Comment on above: Performed By: #### L [id number] ####[facility] TISSUE TYPING (HISTOTRAC)[address] [place] [address] [place] SINGLE ANTIGEN CLASS 2 TEST METHOD Class II Single Antigen Normal [facility] Comment on above: Result Comment: Clas s II Antigen Microbeads Performed By: #### L [id number] ####[facility] TISSUE [facility]YPING (HISTOTRAC)[address] [place] [address] [facility] TACROLIMUS LEVELon Tacrolimus (Bld) [Mass/Vol] 9.3 ng/mL Normal 5.0-20.0 [facility] Comment on above: Result Comment: The [employer] Tacrolimus assay is a delayed one-step immunoassay for the quantitative determination of tacrolimus in human whole blood using the chemiluminescent microparticle immunoassay (CMIA) technology with flexible assay protocols, referred to as Chemiflex. Performed By: #### L [id number] ####[facility] ([facility])[address] [place] [address] URIC ACIDon 04-30-2023 Magnesium [Mass/Vol] 4.9 mg/dL Normal 2.3-6.6 [facility] Comment on above: Performed By: #### L [id number] ####[facility] ([facility])[address] [place] [address] Follow-Upon 04-16-2023 Follow-Up Normal [facility] BASIC METABOLIC PANELon 06-2 Anion gap [Moles/Vol] 14 mmol/L Normal 7-20 [facility] Comment on above: Performed By: #### L [id number] ####[facility] ([facility])[address] [place] [address] Calcium [Mass/Vol] 9.4 mg/dL Normal 8.6-10.3 [facility] Comment on above: Performed By: #### L [id number] ####[facility] ([facility])[address] [place] [address] Chloride [Moles/Vol] 104 mmol/L Normal 98-107 [facility] Comment on above: Performed By: #### L [id number] ####[facility] ([facility])[address] [place] [address] CO2 [Moles/Vol] 24 mmol/L Normal 21-31 [facility] Comment on above: Performed By: #### L [id number] ####[facility] ([facility])[address] [place] [address] Creatinine [Mass/Vol] 1.26 mg/dL High 0.60-1.20 [facility] Comment on above: Performed By: #### L [id number] ####[facility] ([facility])[address] [place] [address] GLOMERULAR FILTRATION RATE ML/MIN/1.73 SQ M.PREDICTED 53.0 mL/min/1.73m*2 Low >60.0 [facility] Comment on above: Result Comment: The [facility]???s estimated glomerular filtration rate (eGFR) will no [...] of individuals. Performed By: #### L [id number] ####[facility] ([facility])[address] [place] [address] Glucose [Mass/Vol] 155 mg/dL High 70-100 [facility] Comment on above: Performed By: #### L [id number] ####[facility] ([facility])[address] [place] [address] Potassium [Moles/Vol] 3.6 mmol/L Normal 3.5-5.1 [facility] Comment on above: Performed By: #### L [id number] ####[facility] ([facility])[address] [place] [address] Sodium [Moles/Vol] 138 mmol/L Normal 136-145 [facility] Comment on above: Performed By: #### L [id number] ####[facility] ([facility])[address] [place] [address] Urea nitrogen [Mass/Vol] 19 mg/dL Normal 7-25 [facility] Comment on above: Performed By: #### L [id number] ####[facility] ([facility])[address] [place] [address] UREA NITROGEN/CREATININE (MASS RATIO) IN SER/PLAS 15.1 Normal [facility] Comment on above: Performed By: #### L [id number] ####[facility] ([facility])[address] [place] [address] CBC WITH AUTO DIFFERENTIALon 03-31-2023 Basophils (Bld) [#/Vol] 0.07 10*3/uL Normal 0.00-0.20 [facility] Comment on above: Performed By: #### L [id number] ####[facility] ([facility])[address] [place] [address] Basophils/100 WBC (Bld) 0.9 % Normal 0.0-1.0 [facility] Comment on above: Performed By: #### L [id number] ####[facility] ([facility])[address] [place] [address] Eosinophils (Bld) [#/Vol] 0.22 10*3/uL Normal 0.00-0.50 [facility] Comment on above: Performed By: #### L [id number] ####[facility] ([facility])[address] [place] [address] Eosinophils/100 WBC (Bld) 2.9 % Normal 0.0-6.0 [facility] Comment on above: Performed By: #### L [id number] ####[facility] ([facility])[address] [place] [address] Erythrocyte distribution width (RBC) [Ratio] 14.0 % Normal 11.5-15.0 [facility] Comment on above: Performed By: #### L [id number] ####[facility] ([facility])[address] [place] [address] ERYTHROCYTE MEAN CORPUSCULAR HEMOGLOBIN CONCENTRATION (G/DL) BY AUTOMATED 32.1 g/dL Normal 32.0-35.0 [facility] Comment on above: Performed By: #### L [id number] ####[facility] ([facility])[address] [place] [address] Hematocrit (Bld) [Volume fraction] 36.5 % Normal 36.0-48.0 [facility] Comment on above: Performed By: #### L [id number] ####[facility] ([facility])[address] [place] [address] Hemoglobin (Bld) [Mass/Vol] 11.7 g/dL Low 12.0-15.0 [facility] Comment on above: Performed By: #### L [id number] ####[facility] ([facility])[address] [place] [address] Immature granulocytes (Bld) [#/Vol] 0.19 10*3/uL Normal 0.00-0.20 [facility] Comment on above: Performed By: #### L [id number] ####[facility] ([facility])[address] [place] [address] Immature granulocytes/100 WBC (Bld) 2.5 % High 0.0-1.0 [facility] Comment on above: Performed By: #### L [id number] ####[facility] ([facility])[address] [place] [address] Lymphocytes (Bld) [#/Vol] 1.44 10*3/uL Normal 1.20-4.00 [facility] Comment on above: Performed By: #### L [id number] ####[facility] ([facility])[address] [place] [address] Lymphocytes/100 WBC (Bld) 19.0 % Low 20.0-45.0 [facility] Comment on above: Performed By: #### L [id number] ####[facility] ([facility])[address] [place] [address] MCH (RBC) [Entitic mass] 29.5 pg Normal 27.0-33.0 [facility] Comment on above: Performed By: #### L [id number] ####[facility] (BEAKER)[address] [place] [address] MCV (RBC) [Entitic vol] 91.9 fL Normal 82.0-98.0 [facility] Comment on above: Performed By: #### L [id number] ####[facility] ([facility])[address] [place] [address] Monocytes (Bld) [#/Vol] 0.54 10*3/uL Normal 0.10-1.00 [facility] Comment on above: Performed By: #### L [id number] ####[facility] ([facility])[address] [place] [address] Monocytes/100 WBC (Bld) 7.1 % Normal 5.0-12.0 [facility] Comment on above: Performed By: #### L [id number] ####[facility] ([facility])[address] [place] [address] Neutrophils (Bld) [#/Vol] 5.12 10*3/uL Normal 1.60-7.60 [facility] Comment on above: Performed By: #### L [id number] ####[facility] ([facility])[address] [place] [address] Neutrophils/100 WBC (Bld) 67.6 % Normal 40.0-72.0 [facility] Comment on above: Performed By: #### L [id number] ####[facility] ([facility])[address] [place] [address] NRBC (PER 100 WBCS) BY AUTOMATED COUNT 0.0 % Normal 0 [facility] Comment on above: Performed By: #### L [id number] ####[facility] ([facility])[address] [place] [address] PLATELETS (10*3/UL) IN BLOOD AUTOMATED COUNT 274 10*3/uL Normal 150-400 [facility] Comment on above: Performed By: #### L [id number] ####[facility] ([facility])[address] [place] [address] RBC (Bld) [#/Vol] 3.97 10*6/uL Normal 3.80-5.00 [facility] Comment on above: Performed By: #### L [id number] ####[facility] ([facility])[address] [place] [address] WBC (Bld) [#/Vol] 7.58 10*3/uL Normal 4.00-10.60 [facility] Comment on above: Performed By: #### L [id number] ####[facility] ([facility])[address] [place] [address] HEPATIC FUNCTION PANELon Albumin [Mass/Vol] 4.4 g/dL Normal 3.5-5.7 [facility] Comment on above: Performed By: #### L [id number] ####[facility] ([facility])[address] [place] [address] ALP [Catalytic activity/Vol] 80 U/L Normal 34-104 [facility] Comment on above: Performed By: #### L [id number] ####[facility] ([facility])[address] [place] [address] ALT [Catalytic activity/Vol] 19 U/L Normal 7-52 [facility] Comment on above: Performed By: #### L [id number] ####[facility] ([facility])[address] [place] [address] AST [Catalytic activity/Vol] 17 U/L Normal 13-39 [facility] Comment on above: Performed By: #### L [id number] ####[facility] ([facility])[address] [place] [address] Bilirubin [Mass/Vol] 0.4 mg/dL Normal 0.3-1.0 [facility] Comment on above: Performed By: #### L [id number] ####[facility] ([facility])[address] [place] [address] Magnesium [Mass/Vol] 0.1 mg/dL Normal 0-0.2 [facility] Comment on above: Performed By: #### L [id number] ####[facility] ([facility])[address] [place] [address] Protein [Mass/Vol] 7.4 g/dL Normal 6.0-8.3 [facility] Comment on above: Performed By: #### L [id number] ####[facility] ([facility])[address] [place] [address] LIPID PANELon 03-31-2023 CHOL/HDL 4.9 mg/dL Normal [facility] Comment on above: Performed By: #### L [id number] ####[facility] ([facility])[address] [place] [address] Cholesterol [Mass/Vol] 240 mg/dL High 120-200 [facility] Comment on above: Performed By: #### L [id number] ####[facility] ([facility])[address] [place] [address] Magnesium [Mass/Vol] 274 mg/dL High 40-149 [facility] Comment on above: Result Comment: TRIG LYCERIDE REFERENCE RANGE:20 YEARS AND OLDER CARDIOVASCULAR RISKLESS THAN 150 mg/dL LOW [id number] TO 199 mg/dL BORDERLINE [id number] mg/dL AND GREATER HIGH RISK Performed By: #### L [id number] ####[facility] ([facility])[address] [place] [address] Magnesium [Mass/Vol] 136 mg/dL Normal 0-160 [facility] Comment on above: Performed By: #### L [id number] ####[facility] ([facility])[address] [place] [address] Magnesium [Mass/Vol] 49 mg/dL Normal 23-92 [facility] Comment on above: Performed By: #### L [id number] ####[facility] ([facility])[address] [place] [address] NON HDL CHOL. (LDL+VLDL) 191 Normal [facility] Comment on above: Performed By: #### L [id number] ####[facility] ([facility]ER)[address] [place] [address] TOTAL VLDL-C 55 mg/dL High 0-40 [facility] Comment on above: Performed By: #### L [id number] ####[facility] ([facility])[address] [place] [address] Labon 03-31-2023 Lab Normal [facility] MAGNESIUMon 03-31-2023 Magnesium [Mass/Vol] 1.5 mg/dL Low 1.9-2.7 [facility] Comment on above: Performed By: #### L [id number] ####[facility] ([facility])[address] [place] [address] PANEL REACTIVE ANTIBODYon HOLD SPECIMEN Hold for add-ons. Normal [facility] Comment on above: Result Comment: Auto resulted. Performed By: #### L [id number] ####[facility] TISSUE [facility]YPING ([place] [address] [place] PHOSPHORUSon 03-31-2023 Magnesium [Mass/Vol] 2.6 mg/dL Normal 2.5-5.0 [facility] Comment on above: Performed By: #### L [id number] ####[facility] ([facility] [place] [address] SINGLE ANTIGEN CLASS Ion AB SCREEN COMMENTS No Class I donor spe cific antibody identified Normal [facility] Comment on above: Performed By: #### L [id number] ####[facility] ([facility]ISTOTRAC)[address] [place] [address] [place] CLASS I TESTED DATE [id number] Normal U [facility] Comment on above: Performed By: #### L [id number] ####[facility] (HISTOTRAC)[address] [place] [address] [facility] SINGLE ANTIGEN CLASS 1 TEST METHOD Class I Single Antigen Normal [facility] Comment on above: Performed By: #### L [id number] ####[facility] (HISTOTRAC)[address] [place] [address] [place] [address] SINGLE ANTIGEN CLASS IIon AB SCREEN COMMENTS No Class II donor specific antibody identified Normal [facility] Comment on above: Performed By: #### L [id number] ####[facility]YP[facility] (HISTOTRAC)[address] CLASS II TESTED DATE [id number] [facility] Comment on above: Performed By: #### L [id number] ####[facility]ISSUE [facility]YP[facility] (HISTOTRAC)[address] SIGNED BY Signed by Sree escamilla [facility]ARKER(ASCP), [employer] [facility] [facility] Comment on above: Performed By: #### L [id number] ####[facility]ISSUE [facility]YP[facility] (HISTOTRAC)[address] Result Comment: Clas s I Antigen Microbeads Performed By: #### L [id number] ####[facility] TISSUE [facility]YP[facility] (HISTOTRAC)[address] SINGLE ANTIGEN CLASS 2 TEST METHOD Class II Single Antigen Normal [facility] Comment on above: Result Comment: Clas s II Antigen Microbeads Performed By: #### L [id number] ####[facility] TISS[facility]YP[facility] (HISTOTRAC)[address] TACROLIMUS LEVELon Tacrolimus (Bld) [Mass/Vol] 6.2 ng/mL Normal 5.0-20.0 [facility] Comment on above: Result Comment: The [employer] Tacrolimus assay is a delayed one-step immunoassay for the quantitative determination of tacrolimus in human whole blood using the chemiluminescent microparticle immunoassay (CMIA) technology with flexible assay protocols, referred to as Chemiflex. Performed By: #### L [id number] ####[facility] (BEAKER)[address] [place] [address] URIC ACIDon 03-31-2023 Magnesium [Mass/Vol] 5.3 mg/dL Normal 2.3-6.6 [facility] Comment on above: Performed By: #### L [id number] ####[facility] ([facility]ER)[address] [place] [address] 36on 02-28-2023 36 Refill is too soon, just sent over with 3 refills Normal [facility] Orders Onlyon 02-28-2023 Orders Only Normal [facility] BASIC METABOLIC PANELon 02-04 Anion gap [Moles/Vol] 13 mmol/L Normal 7-20 [facility] Comment on above: Performed By: #### L [id number] ####[facility] ([facility]ER)[address] [place] [address] Calcium [Mass/Vol] 8.7 mg/dL Normal 8.6-10.3 [facility] Comment on above: Performed By: #### L [id number] ####[facility] ([facility]ER)[address] [place] [address] Chloride [Moles/Vol] 104 mmol/L Normal 98-107 [facility] Comment on above: Performed By: #### L [id number] ####[facility] ([facility]ER)[address] [place] [address] CO2 [Moles/Vol] 23 mmol/L Normal 21-31 [facility] Comment on above: Performed By: #### L [id number] ####[facility] ([facility]ER)[address] [place] [address] Creatinine [Mass/Vol] 1.21 mg/dL High 0.60-1.20 [facility] Comment on above: Performed By: #### L [id number] ####[facility] ([facility]ER)[address] [place] [address] GLOMERULAR FILTRATION RATE ML/MIN/1.73 SQ M.PREDICTED 55.6 mL/min/1.73m*2 Low >60.0 [facility] Comment on above: Result Comment: The [facility]???s estimated glomerular filtration rate (eGFR) will no [...] of individuals. Performed By: #### L [id number] ####[facility] ([facility])[address] [facility] [place] [address] Glucose [Mass/Vol] 154 mg/dL High 70-100 [facility] Comment on above: Performed By: #### L [id number] ####[facility] ([facility])[address] [place] [address] Potassium [Moles/Vol] 3.3 mmol/L Low 3.5-5.1 [facility] Comment on above: Performed By: #### L [id number] ####[facility] ([facility])[address] [place] [address] Sodium [Moles/Vol] 137 mmol/L Normal 136-145 [facility] Comment on above: Performed By: #### L [id number] ####[facility] ([facility])[address] [place] [address] Urea nitrogen [Mass/Vol] 19 mg/dL Normal 7-25 [facility] Comment on above: Performed By: #### L [id number] ####[facility] ([facility])[address] [place] [address] UREA NITROGEN/CREATININE (MASS RATIO) IN SER/PLAS 15.7 Normal [facility] Comment on above: Performed By: #### L [id number] ####[facility] ([facility])[address] [place] [address] BK VIRUS, PLASMA, QUANTITATI VEon 02-24-2023 BK QUANTITATION Not detected Normal Not Detected [facility] Comment on above: Result Comment: Meth od: BK virus was measured by quantitative polymerase chain reaction using a fluorescent hydrolysis probe targeting the polyomavirus BK WIRE THREADER-1 gene.The lower limit of quantitation of the assay is 500 copies of BK genome per milliliter of plasma or urine, and any detectable BK DNA below that level is reported as: Detected, <500 copies/ml. Serial BK virus measurement can be used to monitor disease activity. (Reference: Gordon rogel. J CLIN MICRO 2004; 42:0548-0352).This test was developed and its performance characteristics determined by the [facility]. It has not been approved by the [place] Food and Drug Administration. However, such approval is not required for clinical implementation, and test results have been shown to be clinically useful. This laboratory is CAP accredited and CLIA certified to perform high complexity testing. Performed By: #### L [id number] ####[facility] ([facility])[address] [place] [address] BK QUANTITATION LOG Not detected Normal Not Detected U [facility] Comment on above: Performed By: #### L [id number] ####[facility] ([facility])[address] [place] [address] CBC WITH AUTO DIFFERENTIALon 02-24-2023 Basophils (Bld) [#/Vol] 0.05 10*3/uL Normal 0.00-0.20 [facility] Comment on above: Performed By: #### L [id number] ####[facility] ([facility])[address] [place] [address] Basophils/100 WBC (Bld) 0.7 % Normal 0.0-1.0 [facility] Comment on above: Performed By: #### L [id number] ####[facility] (BEAKER)[address] [place] [address] Eosinophils (Bld) [#/Vol] 0.17 10*3/uL Normal 0.00-0.50 [facility] Comment on above: Performed By: #### L [id number] ####[facility] (BEAKER)[address] [place] [address] Eosinophils/100 WBC (Bld) 2.5 % Normal 0.0-6.0 [facility] Comment on above: Performed By: #### L [id number] ####[facility] (BEAKER)[address] [place] [address] Erythrocyte distribution width (RBC) [Ratio] 15.4 % High 11.5-15.0 [facility] Comment on above: Performed By: #### L [id number] ####[facility] (BEAKER)[address] [place] [address] ERYTHROCYTE MEAN CORPUSCULAR HEMOGLOBIN CONCENTRATION (G/DL) BY AUTOMATED 32.7 g/dL Normal 32.0-35.0 [facility] Comment on above: Performed By: #### L [id number] ####[facility] (BEAKER)[address] [place] [address] Hematocrit (Bld) [Volume fraction] 30.3 % Low 36.0-48.0 [facility] Comment on above: Performed By: #### L [id number] ####[facility] (BEAKER)[address] [place] [address] Hemoglobin (Bld) [Mass/Vol] 9.9 g/dL Low 12.0-15.0 [facility] Comment on above: Performed By: #### L [id number] ####[facility] (BEAKER)[address] [place] [address] Immature granulocytes (Bld) [#/Vol] 0.13 10*3/uL Normal 0.00-0.20 [facility] Comment on above: Performed By: #### L [id number] ####[facility] (BEAKER)[address] [place] [address] Immature granulocytes/100 WBC (Bld) 1.9 % High 0.0-1.0 [facility] Comment on above: Performed By: #### L [id number] ####[facility] (BEAKER)[address] [place] [address] Lymphocytes (Bld) [#/Vol] 1.43 10*3/uL Normal 1.20-4.00 [facility] Comment on above: Performed By: #### L [id number] ####[facility] (BEAKER)[address] [place] [address] Lymphocytes/100 WBC (Bld) 21.0 % Normal 20.0-45.0 [facility] Comment on above: Performed By: #### L [id number] ####[facility] ([facility])[address] [place] [address] MCH (RBC) [Entitic mass] 30.7 pg Normal 27.0-33.0 [facility] Comment on above: Performed By: #### L [id number] ####[facility] ([facility])[address] [place] [address] MCV (RBC) [Entitic vol] 93.8 fL Normal 82.0-98.0 [facility] Comment on above: Performed By: #### L [id number] ####[facility] ([facility])[address] [place] [address] Monocytes (Bld) [#/Vol] 0.51 10*3/uL Normal 0.10-1.00 [facility] Comment on above: Performed By: #### L [id number] ####[facility] ([facility])[address] [place] [address] Monocytes/100 WBC (Bld) 7.5 % Normal 5.0-12.0 [facility] Comment on above: Performed By: #### L [id number] ####[facility] (BEAKER)[address] [place] [address] Neutrophils (Bld) [#/Vol] 4.52 10*3/uL Normal 1.60-7.60 [facility] Comment on above: Performed By: #### L [id number] ####[facility] (BEAKER)[address] [place] [address] Neutrophils/100 WBC (Bld) 66.4 % Normal 40.0-72.0 [facility] Comment on above: Performed By: #### L [id number] ####[facility] ([facility])[address] [place] [address] NRBC (PER 100 WBCS) BY AUTOMATED COUNT 0.3 % High 0 [facility] Comment on above: Performed By: #### L [id number] ####[facility] ([facility])[address] [place] [address] PLATELETS (10*3/UL) IN BLOOD AUTOMATED COUNT 218 10*3/uL Normal 150-400 [facility] Comment on above: Performed By: #### L [id number] ####[facility] ([facility])[address] [place] [address] RBC (Bld) [#/Vol] 3.23 10*6/uL Low 3.80-5.00 [facility] Comment on above: Performed By: #### L [id number] ####[facility] ([facility])[address] [place] [address] WBC (Bld) [#/Vol] 6.81 10*3/uL Normal 4.00-10.60 [facility] Comment on above: Performed By: #### L [id number] ####[facility] ([facility])[address] [place] [address] HEMOGLOBIN A1Con 02-24-2023 Glucose [Mass/Vol] 108 mg/dL Normal [facility] Comment on above: Performed By: #### L [id number] ####[facility] ([facility])[address] [place] [address] HbA1c (Bld) [Mass fraction] 5.4 % Normal 4.0-6.0 [facility] Comment on above: Performed By: #### L [id number] ####[facility] ([facility])[address] [place] [address] HEPATIC FUNCTION PANELon Albumin [Mass/Vol] 4.3 g/dL Normal 3.5-5.7 [facility] Comment on above: Performed By: #### L [id number] ####[facility] ([facility])[address] [place] [address] ALP [Catalytic activity/Vol] 79 U/L Normal 34-104 [facility] Comment on above: Performed By: #### L [id number] ####[facility] ([facility])[address] [place] [address] ALT [Catalytic activity/Vol] 21 U/L Normal 7-52 [facility] Comment on above: Performed By: #### L [id number] ####[facility] ([facility])[address] [place] [address] AST [Catalytic activity/Vol] 18 U/L Normal 13-39 [facility] Comment on above: Performed By: #### L [id number] ####[facility] ([facility])[address] [place] [address] Bilirubin [Mass/Vol] 0.5 mg/dL Normal 0.3-1.0 [facility] Comment on above: Performed By: #### L [id number] ####[facility] ([facility])[address] [place] [address] Magnesium [Mass/Vol] 0.1 mg/dL Normal 0-0.2 [facility] Comment on above: Performed By: #### L [id number] ####[facility] ([facility])[address] [place] [address] Protein [Mass/Vol] 6.8 g/dL Normal 6.0-8.3 [facility] Comment on above: Performed By: #### L [id number] ####[facility] ([facility])[address] [place] [address] LIPID PANELon 02-24-2023 CHOL/HDL 4.6 mg/dL Normal [facility] Comment on above: Performed By: #### L [id number] ####[facility] ([facility])[address] [place] [address] Cholesterol [Mass/Vol] 211 mg/dL High 120-200 [facility] Comment on above: Performed By: #### L [id number] ####[facility] ([facility])[address] [place] [address] Magnesium [Mass/Vol] 263 mg/dL High 40-149 [facility] Comment on above: Result Comment: TRIG LYCERIDE REFERENCE RANGE:20 YEARS AND OLDER CARDIOVASCULAR RISKLESS THAN 150 mg/dL LOW [id number] TO 199 mg/dL BORDERLINE [id number] mg/dL AND GREATER HIGH RISK Performed By: #### L [id number] ####[facility] ([facility])[address] [place] [address] Magnesium [Mass/Vol] 112 mg/dL Normal 0-160 [facility] Comment on above: Performed By: #### L [id number] ####[facility] ([facility])[address] [place] [address] Magnesium [Mass/Vol] 46 mg/dL Normal 23-92 [facility] Comment on above: Performed By: #### L [id number] ####[facility] ([facility])[address] [place] [address] NON HDL CHOL. (LDL+VLDL) 165 Normal [facility] Comment on above: Performed By: #### L [id number] ####[facility] ([facility])[address] [place] [address] TOTAL VLDL-C 53 mg/dL High 0-40 [facility] Comment on above: Performed By: #### L [id number] ####[facility] ([facility])[address] [place] [address] Labon 02-24-2023 Lab Normal [facility] MAGNESIUMon 02-24-2023 Magnesium [Mass/Vol] 1.7 mg/dL Low 1.9-2.7 [facility] Comment on above: Performed By: #### L [id number] ####[facility] ([facility])[address] [place] [address] PANEL REACTIVE ANTIBODYon HOLD SPECIMEN Hold for add-ons. Normal [facility] Comment on above: Result Comment: Auto resulted. Performed By: #### L [id number] ####[facility] ([facility])[address] [place] [address] PHOSPHORUSon 02-24-2023 Magnesium [Mass/Vol] 2.3 mg/dL Low 2.5-5.0 [facility] Comment on above: Performed By: #### L [id number] ####[facility] ([facility]ER)[address] [place] [address] SINGLE ANTIGEN CLASS Ion AB SCREEN COMMENTS No Class I donor spe cific antibody identified Normal [facility] Comment on above: Performed By: #### L [id number] ####[facility] (HISTOTRAC)[address] [place] [address] [place] CLASS I TESTED DATE Normal [facility] Comment on above: Performed By: #### L [id number] ####[facility] (HISTOTRAC)[address] [place] [address] [facility] SINGLE ANTIGEN CLASS 1 TEST METHOD Class I Single Antigen Normal [facility] Comment on above: Performed By: #### L [id number] ####[facility]YP[facility] (HISTOTRAC)[address] [place] [address] [facility] SINGLE ANTIGEN CLASS IIon AB SCREEN COMMENTS No Class II donor specific antibody identified Normal [facility] Comment on above: Performed By: #### L [id number] ####[facility]ISSUE [facility]YP[facility] (HISTOTRAC)[address] [place] [address] [place] CLASS II TESTED DATE [facility] Comment on above: Performed By: #### L [id number] ####[facility]ISSUE [facility]YP[facility] (HISTOTRAC)[address] [place] [address] [facility] SIGNED BY Signed by Sree escamilla [facility] MT(ASCP), Waste Picker Transplant Immunology [facility] Comment on above: Performed By: #### L [id number] ####[facility] TISSUE TYP[facility] (HISTOTRAC)[address] [place] [address] [facility] Result Comment: Clas s I Antigen Microbeads Performed By: #### L [id number] ####[facility] TISSUE TYPING (HISTOTRAC)[address] [place] [address] [facility] SINGLE ANTIGEN CLASS 2 TEST METHOD Class II Single Antigen Normal [facility] Comment on above: Result Comment: Clas s II Antigen Microbeads Performed By: #### L [id number] ####[facility] TISSUE [facility]YP[facility] (HISTOTRAC)[address] [place] [address] [place] TACROLIMUS LEVELon Tacrolimus (Bld) [Mass/Vol] 5.9 ng/mL Normal 5.0-20.0 [facility] Comment on above: Result Comment: The [employer] Tacrolimus assay is a delayed one-step immunoassay for the quantitative determination of tacrolimus in human whole blood using the chemiluminescent microparticle immunoassay (CMIA) technology with flexible assay protocols, referred to as Chemiflex. Performed By: #### L [id number] ####[facility] ([facility])[address] [place] [address] URIC ACIDon 02-24-2023 Magnesium [Mass/Vol] 4.6 mg/dL Normal 2.3-6.6 [facility] Comment on above: Performed By: #### L [id number] ####[facility] ([facility])[address] [place] [address] Follow-Upon 02-03-2023 Follow-Up Normal [facility] BASIC METABOLIC PANELon 01-05 Anion gap [Moles/Vol] 13 mmol/L Normal 7-20 [facility] Comment on above: Performed By: #### L [id number] ####[facility] ([facility])[address] [place] [address] Calcium [Mass/Vol] 9.2 mg/dL Normal 8.6-10.3 [facility] Comment on above: Performed By: #### L [id number] ####[facility] ([facility])[address] [place] [address] Chloride [Moles/Vol] 104 mmol/L Normal 98-107 [facility] Comment on above: Performed By: #### L [id number] ####[facility] ([facility])[address] [place] [address] CO2 [Moles/Vol] 24 mmol/L Normal 21-31 [facility] Comment on above: Performed By: #### L [id number] ####[facility] ([facility])[address] [place] [address] Creatinine [Mass/Vol] 1.39 mg/dL High 0.60-1.20 [facility] Comment on above: Performed By: #### L [id number] ####[facility] ([facility])[address] [place] [address] GLOMERULAR FILTRATION RATE ML/MIN/1.73 SQ M.PREDICTED 47.1 mL/min/1.73m*2 Low >60.0 [facility] Comment on above: Result Comment: The [facility]???s estimated glomerular filtration rate (eGFR) will no [...] of individuals. Performed By: #### L [id number] ####[facility] ([facility])[address] [place] [address] Glucose [Mass/Vol] 174 mg/dL High 70-100 [facility] Comment on above: Performed By: #### L [id number] ####[facility] ([facility])[address] [facility] [place] [address] Potassium [Moles/Vol] 3.8 mmol/L Normal 3.5-5.1 [facility] Comment on above: Performed By: #### L [id number] ####[facility] ([facility])[address] [facility] [place] [address] Sodium [Moles/Vol] 137 mmol/L Normal 136-145 [facility] Comment on above: Performed By: #### L [id number] ####[facility] ([facility])[address] [place] [address] Urea nitrogen [Mass/Vol] 20 mg/dL Normal 7-25 [facility] Comment on above: Performed By: #### L [id number] ####[facility] ([facility])[address] [address] UREA NITROGEN/CREATININE (MASS RATIO) IN SER/PLAS 14.4 Normal [facility] Comment on above: Performed By: #### L [id number] ####[facility] ([facility])[address] [place] [address] CBC WITH AUTO DIFFERENTIALon 02-01-2023 Basophils (Bld) [#/Vol] 0.07 10*3/uL Normal 0.00-0.20 [facility] Comment on above: Performed By: #### L [id number] ####[facility] ([facility])[address] [place] [address] Basophils/100 WBC (Bld) 0.8 % Normal 0.0-1.0 [facility] Comment on above: Performed By: #### L [id number] ####[facility] ([facility])[address] [place] [address] Eosinophils (Bld) [#/Vol] 0.36 10*3/uL Normal 0.00-0.50 [facility] Comment on above: Performed By: #### L [id number] ####[facility] ([facility])[address] [place] [address] Eosinophils/100 WBC (Bld) 4.2 % Normal 0.0-6.0 [facility] Comment on above: Performed By: #### L [id number] ####[facility] ([facility])[address] [place] [address] Erythrocyte distribution width (RBC) [Ratio] 14.7 % Normal 11.5-15.0 [facility] Comment on above: Performed By: #### L [id number] ####[facility] ([facility])[address] [place] [address] ERYTHROCYTE MEAN CORPUSCULAR HEMOGLOBIN CONCENTRATION (G/DL) BY AUTOMATED 33.0 g/dL Normal 32.0-35.0 [facility] Comment on above: Performed By: #### L [id number] ####[facility] ([facility])[address] [place] [address] Hematocrit (Bld) [Volume fraction] 30.9 % Low 36.0-48.0 [facility] Comment on above: Performed By: #### L [id number] ####[facility] ([facility])[address] [place] [address] Hemoglobin (Bld) [Mass/Vol] 10.2 g/dL Low 12.0-15.0 [facility] Comment on above: Performed By: #### L [id number] ####[facility] ([facility])[address] [place] [address] Immature granulocytes (Bld) [#/Vol] 0.14 10*3/uL Normal 0.00-0.20 [facility] Comment on above: Performed By: #### L [id number] ####[facility] ([facility])[address] [place] [address] Immature granulocytes/100 WBC (Bld) 1.6 % High 0.0-1.0 [facility] Comment on above: Performed By: #### L [id number] ####[facility] ([facility])[address] [place] [address] Lymphocytes (Bld) [#/Vol] 0.58 10*3/uL Low 1.20-4.00 [facility] Comment on above: Performed By: #### L [id number] ####[facility] ([facility])[address] [place] [address] Lymphocytes/100 WBC (Bld) 6.7 % Low 20.0-45.0 [facility] Comment on above: Performed By: #### L [id number] ####[facility] ([facility])[address] [place] [address] MCH (RBC) [Entitic mass] 31.1 pg Normal 27.0-33.0 [facility] Comment on above: Performed By: #### L [id number] ####[facility] ([facility])[address] [place] [address] MCV (RBC) [Entitic vol] 94.2 fL Normal 82.0-98.0 [facility] Comment on above: Performed By: #### L [id number] ####[facility] ([facility])[address] [place] [address] Monocytes (Bld) [#/Vol] 0.59 10*3/uL Normal 0.10-1.00 [facility] Comment on above: Performed By: #### L [id number] ####[facility] ([facility])[address] [place] [address] Monocytes/100 WBC (Bld) 6.9 % Normal 5.0-12.0 [facility] Comment on above: Performed By: #### L [id number] ####[facility] ([facility])[address] [place] [address] Neutrophils (Bld) [#/Vol] 6.87 10*3/uL Normal 1.60-7.60 [facility] Comment on above: Performed By: #### L [id number] ####[facility] ([facility])[address] [place] [address] Neutrophils/100 WBC (Bld) 79.8 % High 40.0-72.0 [facility] Comment on above: Performed By: #### L [id number] ####[facility] ([facility])[address] [place] [address] NRBC (PER 100 WBCS) BY AUTOMATED COUNT 0.0 % Normal 0 [facility] Comment on above: Performed By: #### L [id number] ####[facility] ([facility])[address] [place] [address] PLATELETS (10*3/UL) IN BLOOD AUTOMATED COUNT 233 10*3/uL Normal 150-400 [facility] Comment on above: Performed By: #### L [id number] ####[facility] ([facility])[address] [place] [address] RBC (Bld) [#/Vol] 3.28 10*6/uL Low 3.80-5.00 [facility] Comment on above: Performed By: #### L [id number] ####[facility] ([facility])[address] [place] [address] WBC (Bld) [#/Vol] 8.61 10*3/uL Normal 4.00-10.60 [facility] Comment on above: Performed By: #### L [id number] ####[facility] ([facility])[address] [place] [address] CKon 02-01-2023 CREATINE KINASE (U/L) IN SER/PLAS 26.0 U/L Low 30.0-223.0 [facility] Comment on above: Performed By: #### L [id number] ####[facility] ([facility])[address] [place] [address] HEPATIC FUNCTION PANELon Albumin [Mass/Vol] 4.2 g/dL Normal 3.5-5.7 [facility] Comment on above: Performed By: #### L [id number] ####[facility] ([facility])[address] [place] [address] ALP [Catalytic activity/Vol] 85 U/L Normal 34-104 [facility] Comment on above: Performed By: #### L [id number] ####[facility] ([facility])[address] [place] [address] ALT [Catalytic activity/Vol] 26 U/L Normal 7-52 [facility] Comment on above: Performed By: #### L [id number] ####[facility] ([facility])[address] [place] [address] AST [Catalytic activity/Vol] 18 U/L Normal 13-39 [facility] Comment on above: Performed By: #### L [id number] ####[facility] ([facility])[address] [place] [address] Bilirubin [Mass/Vol] 0.6 mg/dL Normal 0.3-1.0 [facility] Comment on above: Performed By: #### L [id number] ####[facility] ([facility])[address] [place] [address] Magnesium [Mass/Vol] 0.1 mg/dL Normal 0-0.2 [facility] Comment on above: Performed By: #### L [id number] ####[facility] ([facility])[address] [place] [address] Protein [Mass/Vol] 6.8 g/dL Normal 6.0-8.3 [facility] Comment on above: Performed By: #### L [id number] ####[facility] ([facility])[address] [place] [address] LIPID PANELon 02-01-2023 CHOL/HDL 4.0 mg/dL Normal [facility] Comment on above: Performed By: #### L [id number] ####[facility] ([facility])[address] [place] [address] Cholesterol [Mass/Vol] 194 mg/dL Normal 120-200 [facility] Comment on above: Performed By: #### L [id number] ####[facility] ([facility])[address] [place] [address] Magnesium [Mass/Vol] 258 mg/dL High 40-149 [facility] Comment on above: Result Comment: TRIG LYCERIDE REFERENCE RANGE:20 YEARS AND OLDER CARDIOVASCULAR RISKLESS THAN 150 mg/dL LOW [id number] TO 199 mg/dL BORDERLINE [id number] mg/dL AND GREATER HIGH RISK Performed By: #### L [id number] ####[facility] ([facility])[address] [place] [address] Magnesium [Mass/Vol] 93 mg/dL Normal 0-160 [facility] Comment on above: Performed By: #### L [id number] ####[facility] ([facility])[address] [place] [address] Magnesium [Mass/Vol] 49 mg/dL Normal 23-92 [facility] Comment on above: Performed By: #### L [id number] ####[facility] ([facility])[address] [place] [address] NON HDL CHOL. (LDL+VLDL) 145 Normal [facility] Comment on above: Performed By: #### L [id number] ####[facility] ([facility])[address] [place] [address] TOTAL VLDL-C 52 mg/dL High 0-40 [facility] Comment on above: Performed By: #### L [id number] ####[facility] ([facility])[address] [place] [address] Labon 02-01-2023 Lab Normal [facility] MAGNESIUMon 02-01-2023 Magnesium [Mass/Vol] 1.6 mg/dL Low 1.9-2.7 [facility] Comment on above: Performed By: #### L [id number] ####[facility] ([facility])[address] [place] [address] MYOGLOBIN, SERUMon 3 MYOGLOBIN (NG/ML) IN SER/PLAS 30 ng/mL Normal 0-90 [facility] Comment on above: Result Comment: A DO UBLING OF VALUES FROM SERIAL BLOOD COLLECTIONS (1 - 2 HOURS APART) IS MORE INDICATIVE OF A M.I. THAN THE ABSOLUTE VALUE. Performed By: #### L [id number] ####[facility] ([facility])[address] [place] [address] PHOSPHORUSon 02-01-2023 Magnesium [Mass/Vol] 3.0 mg/dL Normal 2.5-5.0 [facility] Comment on above: Performed By: #### L [id number] ####[facility] ([facility])[address] [place] [address] TACROLIMUS LEVELon 3 Tacrolimus (Bld) [Mass/Vol] 7.0 ng/mL Normal 5.0-20.0 [facility] Comment on above: Result Comment: The [employer] Tacrolimus assay is a delayed one-step immunoassay for the quantitative determination of tacrolimus in human whole blood using the chemiluminescent microparticle immunoassay (CMIA) technology with flexible assay protocols, referred to as Chemiflex. Performed By: #### L [id number] ####[facility] ([facility])[address] [place] [address] URIC ACIDon 02-01-2023 Magnesium [Mass/Vol] 3.9 mg/dL Normal 2.3-6.6 [facility] Comment on above: Performed By: #### L [id number] ####[facility] ([facility])[address] [place] [address] Labon 01-17-2023 Lab Normal [facility] TACROLIMUS LEVELon 3 Tacrolimus (Bld) [Mass/Vol] 7.8 ng/mL Normal 5.0-20.0 [facility] Comment on above: Result Comment: The [employer] Tacrolimus assay is a delayed one-step immunoassay for the quantitative determination of tacrolimus in human whole blood using the chemiluminescent microparticle immunoassay (CMIA) technology with flexible assay protocols, referred to as Chemiflex. Performed By: #### L [id number] ####[facility] ([facility])[address] [place] [address] Labon 01-09-2023 Lab Normal [facility] TACROLIMUS LEVELon 3 Tacrolimus (Bld) [Mass/Vol] 4.4 ng/mL Low 5.0-20.0 [facility] Comment on above: Result Comment: The [employer] Tacrolimus assay is a delayed one-step immunoassay for the quantitative determination of tacrolimus in human whole blood using the chemiluminescent microparticle immunoassay (CMIA) technology with flexible assay protocols, referred to as Chemiflex. Performed By: #### L [id number] ####[facility] ([facility])[address] [place] [address] Labon 01-01-2023 Lab Normal [facility] TACROLIMUS LEVELon 3 Tacrolimus (Bld) [Mass/Vol] 10.0 ng/mL Normal 5.0-20.0 [facility] Comment on above: Result Comment: The [employer] Tacrolimus assay is a delayed one-step immunoassay for the quantitative determination of tacrolimus in human whole blood using the chemiluminescent microparticle immunoassay (CMIA) technology with flexible assay protocols, referred to as Chemiflex. Performed By: #### L [id number] ####[facility] ([facility])[address] [place] [address] BASIC METABOLIC PANELon - Anion gap [Moles/Vol] 13 mmol/L Normal 7-20 [facility] Comment on above: Performed By: #### L [id number] ####[facility] ([facility])[address] [place] [address] Calcium [Mass/Vol] 9.4 mg/dL Normal 8.6-10.3 [facility] Comment on above: Performed By: #### L [id number] ####[facility] ([facility])[address] [place] [address] Chloride [Moles/Vol] 103 mmol/L Normal 98-107 [facility] Comment on above: Performed By: #### L [id number] ####[facility] ([facility])[address] [place] [address] CO2 [Moles/Vol] 25 mmol/L Normal 21-31 [facility] Comment on above: Performed By: #### L [id number] ####[facility] ([facility])[address] [place] [address] Creatinine [Mass/Vol] 1.33 mg/dL High 0.60-1.20 [facility] Comment on above: Performed By: #### L [id number] ####[facility] ([facility])[address] [facility] [place] [address] GLOMERULAR FILTRATION RATE ML/MIN/1.73 SQ M.PREDICTED 49.7 mL/min/1.73m*2 Low >60.0 [facility] Comment on above: Result Comment: The [facility]???s estimated glomerular filtration rate (eGFR) will no [...] of individuals. Performed By: #### L [id number] ####[facility] ([facility])[address] [place] [address] Glucose [Mass/Vol] 154 mg/dL High 70-100 [facility] Comment on above: Performed By: #### L [id number] ####[facility] ([facility])[address] [facility] [place] [address] Potassium [Moles/Vol] 3.5 mmol/L Normal 3.5-5.1 [facility] Comment on above: Performed By: #### L [id number] ####[facility] ([facility])[address] [facility] [place] [address] Sodium [Moles/Vol] 137 mmol/L Normal 136-145 [facility] Comment on above: Performed By: #### L [id number] ####[facility] ([facility])[address] [facility] [place] [address] Urea nitrogen [Mass/Vol] 23 mg/dL Normal 7-25 [facility] Comment on above: Performed By: #### L [id number] ####[facility] ([facility])[address] [facility] [place] [address] UREA NITROGEN/CREATININE (MASS RATIO) IN SER/PLAS 17.3 Normal [facility] Comment on above: Performed By: #### L [id number] ####[facility] ([facility])[address] [facility] [place] [address] CBC WITH AUTO DIFFERENTIALon 12-25-2022 Erythrocyte distribution width (RBC) [Ratio] 13.3 % Normal 11.5-15.0 [facility] Comment on above: Performed By: #### L [id number] ####[facility] ([facility])[address] [place] [address] ERYTHROCYTE MEAN CORPUSCULAR HEMOGLOBIN CONCENTRATION (G/DL) BY AUTOMATED 33.8 g/dL Normal 32.0-35.0 [facility] Comment on above: Performed By: #### L [id number] ####[facility] ([facility])[address] [place] [address] Hematocrit (Bld) [Volume fraction] 36.4 % Normal 36.0-48.0 [facility] Comment on above: Performed By: #### L [id number] ####[facility] ([facility])[address] [place] [address] Hemoglobin (Bld) [Mass/Vol] 12.3 g/dL Normal 12.0-15.0 [facility] Comment on above: Performed By: #### L [id number] ####[facility] ([facility])[address] [place] [address] MCH (RBC) [Entitic mass] 31.9 pg Normal 27.0-33.0 [facility] Comment on above: Performed By: #### L [id number] ####[facility] ([facility])[address] [place] [address] MCV (RBC) [Entitic vol] 94.5 fL Normal 82.0-98.0 [facility] Comment on above: Performed By: #### L [id number] ####[facility] ([facility])[address] [place] [address] NRBC (PER 100 WBCS) BY AUTOMATED COUNT 0.0 % Normal 0.0-0.0 [facility] Comment on above: Performed By: #### L [id number] ####[facility] ([facility])[address] [place] [address] PLATELETS (10*3/UL) IN BLOOD AUTOMATED COUNT 274 10*3/uL Normal 150-400 [facility] Comment on above: Performed By: #### L [id number] ####[facility] ([facility])[address] [place] [address] RBC (Bld) [#/Vol] 3.85 10*6/uL Normal 3.80-5.00 [facility] Comment on above: Performed By: #### L [id number] ####[facility] ([facility])[address] [place] [address] WBC (Bld) [#/Vol] 4.30 10*3/uL Normal 4.00-10.60 [facility] Comment on above: Performed By: #### L [id number] ####[facility] ([facility])[address] [place] [address] CKon 12-25-2022 CREATINE KINASE (U/L) IN SER/PLAS 32.0 U/L Normal 30.0-223.0 [facility] Comment on above: Performed By: #### L [id number] ####[facility] ([facility])[address] [place] [address] Follow-Upon 12-25-2022 Follow-Up Normal [facility] HEPATIC FUNCTION PANELon Albumin [Mass/Vol] 4.6 g/dL Normal 3.5-5.7 [facility] Comment on above: Performed By: #### L [id number] ####[facility] ([facility])[address] [place] [address] ALP [Catalytic activity/Vol] 63 U/L Normal 34-104 [facility] Comment on above: Performed By: #### L [id number] ####[facility] ([facility])[address] [place] [address] ALT [Catalytic activity/Vol] 25 U/L Normal 7-52 [facility] Comment on above: Performed By: #### L [id number] ####[facility] ([facility])[address] [place] [address] AST [Catalytic activity/Vol] 19 U/L Normal 13-39 [facility] Comment on above: Performed By: #### L [id number] ####[facility] ([facility])[address] [place] [address] Bilirubin [Mass/Vol] 0.4 mg/dL Normal 0.3-1.0 [facility] Comment on above: Performed By: #### L [id number] ####[facility] ([facility])[address] [place] [address] Magnesium [Mass/Vol] 0.1 mg/dL Normal 0-0.2 [facility] Comment on above: Performed By: #### L [id number] ####[facility] ([facility])[address] [place] [address] Protein [Mass/Vol] 7.2 g/dL Normal 6.0-8.3 [facility] Comment on above: Performed By: #### L [id number] ####[facility] ([facility])[address] [place] [address] Labon 12-25-2022 Lab Normal [facility] MAGNESIUMon 12-25-2022 Magnesium [Mass/Vol] 1.7 mg/dL Low 1.9-2.7 [facility] Comment on above: Performed By: #### L [id number] ####[facility] ([facility])[address] [place] [address] MANUAL DIFFERENTIALon 2022 BASOPHILS (10*3/UL) IN BLOOD BY CALCULATION 0.04 10*3/uL Normal 0.00-0.20 [facility] Comment on above: Performed By: #### L [id number] ####[facility] ([facility])[address] [place] [address] BASOPHILS/100 LEUKOCYTES IN BLOOD BY AUTOMATED COUNT 1.0 % Normal 0.0-1.0 [facility] Comment on above: Result Comment: Libby ected result: Previously reported as 0.9 % (reference range: 0.0-1.0 %) on 12/25/2022 at 0831 EDT. Performed By: #### L [id number] ####[facility] ([facility])[address] [place] [address] EOSINOPHILS (10*3/UL) IN BLOOD BY CALCULATION 0.09 10*3/uL Normal 0.00-0.50 [facility] Comment on above: Result Comment: Libby ected result: Previously reported as 0.15 10*3/uL (reference range: 0.00-0.50 10*3/uL) on 12/25/2022 at 0831 EDT. Performed By: #### L [id number] ####[facility] ([facility])[address] [place] [address] EOSINOPHILS/100 LEUKOCYTES IN BLOOD BY AUTOMATED COUNT 2.0 % Normal 0.0-6.0 [facility] Comment on above: Result Comment: Libby ected result: Previously reported as 3.5 % (reference range: 0.0-6.0 %) on 12/25/2022 at 0831 EDT. Performed By: #### L [id number] ####[facility] ([facility])[address] [place] [address] LYMPHOCYTES (10*3/UL) IN BLOOD BY CALCULATION 0.65 10*3/uL Low 1.20-4.00 [facility] Comment on above: Result Comment: Libby ected result: Previously reported as 0.69 10*3/uL (reference range: 1.20-4.00 10*3/uL) on 12/25/2022 at 0831 EDT. Performed By: #### L [id number] ####[facility] ([facility])[address] [place] [address] LYMPHOCYTES/100 LEUKOCYTES IN BLOOD BY AUTOMATED COUNT 15.0 % Low 20.0-45.0 [facility] Comment on above: Result Comment: Libby ected result: Previously reported as 16.0 % (reference range: 20.0-45.0 %) on 12/25/2022 at 0831 EDT. Performed By: #### L [id number] ####[facility] ([facility])[address] [place] [address] METAMYELOCYTES (10*3/UL) IN BLOOD BY CALCULATION 0.04 10*3/uL High 0.00-0.00 [facility] Comment on above: Performed By: #### L [id number] ####[facility] ([facility])[address] [facility] [address] METAMYELOCYTES/100 LEUKOCYTES IN BLOOD CELLAVISION 1.0 % High 0.0-0.0 [facility] Comment on above: Performed By: #### L [id number] ####[facility] ([facility])[address] [place] [address] MONOCYTES (10*3/UL) IN BLOOD BY CALCUATION 0.04 10*3/uL Low 0.10-1.00 [facility] Comment on above: Result Comment: Libby ected result: Previously reported as 0.12 10*3/uL (reference range: 0.10-1.00 10*3/uL) on 12/25/2022 at 0831 EDT. Performed By: #### L [id number] ####[facility] ([facility])[address] [place] [address] MONOCYTES/100 LEUKOCYTES IN BLOOD BY AUTOMATED COUNT 1.0 % Low 5.0-12.0 [facility] Comment on above: Result Comment: Libby ected result: Previously reported as 2.8 % (reference range: 5.0-12.0 %) on 12/25/2022 at 0831 EDT. Performed By: #### L [id number] ####[facility] ([facility])[address] [place] [address] NEUTROPHILS (10*3/UL) IN BLOOD BY CALCULATION 3.4 10*3/uL Normal 1.6-7.6 [facility] Comment on above: Result Comment: Libby ected result: Previously reported as 2.9 10*3/uL (reference range: 1.6-7.6 10*3/uL) on 12/25/2022 at 0831 EDT. Performed By: #### L [id number] ####[facility] ([facility])[address] [place] [address] NEUTROPHILS/100 LEUKOCYTES IN BLOOD BY AUTOMATED COUNT 80.0 % High 40.0-72.0 [facility] Comment on above: Result Comment: Libby ected result: Previously reported as 67.7 % (reference range: 40.0-72.0 %) on 12/25/2022 at 0831 EDT. Performed By: #### L [id number] ####[facility] ([facility])[address] [place] [address] PLASMA CELLS/100 LEUKOCYTES IN BLOOD 0 % Normal 0-0 [facility] Comment on above: Performed By: #### L [id number] ####[facility] ([facility])[address] [place] [address] PLATELETS GIANT PRESENCE IN BLOOD BY LIGHT MICROSCOPY Present [facility] Comment on above: Performed By: #### L [id number] ####[facility] ([facility])[address] [place] [address] VARIANT LYMPHOCYTES (10*3/UL) IN BLOOD BY CALCULATION 0.00 10*3/uL Normal 0.00-0.00 [facility] Comment on above: Performed By: #### L [id number] ####[facility] ([facility])[address] [place] [address] VARIANT LYMPHOCYTES/100 LEUKOCYTES IN BLOOD CELLAVISION 0.0 % Normal 0.0-0.0 [facility] Comment on above: Performed By: #### L [id number] ####[facility] ([facility])[address] [place] [address] [facility] PROSPERAon 12-25-2022 PROSPERA RESULT Results to be mailed directly to physician's office by reference lab. [facility] Comment on above: Performed By: #### L [id number] ####[facility], PHOSPHORUSon 12-25-2022 Magnesium [Mass/Vol] 2.6 mg/dL Normal 2.5-5.0 [facility] Comment on above: Performed By: #### L [id number] ####[facility] ([facility])[address] [place] [address] SINGLE ANTIGEN CLASS Ion AB SCREEN COMMENTS No Class I donor spe cific antibody identified [facility] Comment on above: Performed By: #### L [id number] ####[facility] TISSUE TYPING (HISTOTRAC)[address] [place] [address] [place] CLASS I TESTED DATE Normal [facility] Comment on above: Performed By: #### L [id number] ####[facility] TISSUE TYPING (HISTOTRAC)[address] [place] [address] [facility] SIGNED BY Signed by Sree escamilla CHT([facility]) MT[facility] [employer] Transplant Immunology Normal [facility] Comment on above: Result Comment: Clas s I Antigen Microbeads Performed By: #### L [id number] ####[facility] TISSUE TYPING (HISTOTRAC)[address] [place] [address] [facility] Performed By: #### L [id number] ####[facility] TISSUE TYPING (HISTOTRAC)[address] [place] [address] [facility] SINGLE ANTIGEN CLASS 1 TEST METHOD Class I Single Antigen Normal [facility] Comment on above: Performed By: #### L [id number] ####[facility] TISSUE TYPING (HISTOTRAC)[address] [place] [address] [facility] SINGLE ANTIGEN CLASS IIon AB SCREEN COMMENTS No Class II donor specific antibody identified [facility] Comment on above: Performed By: #### L [id number] ####[facility] TISSUE TYPING (HISTOTRAC)[address] [place] [address] [facility] CLASS II TESTED DATE [id number] [facility] Comment on above: Performed By: #### L [id number] ####[facility] TISSUE TYPING (HISTOTRAC)[address] [place] [address] [facility] SINGLE ANTIGEN CLASS 2 TEST METHOD Class II Single Antigen Normal [facility] Comment on above: Result Comment: Clas s II Antigen Microbeads Performed By: #### L [id number] ####[facility] TISSUE TYPING (HISTOTRAC)[address] [place] [address] [place] TACROLIMUS LEVELon Tacrolimus (Bld) [Mass/Vol] 11.4 ng/mL Normal 5.0-20.0 [facility] Comment on above: Result Comment: The [employer] Tacrolimus assay is a delayed one-step immunoassay for the quantitative determination of tacrolimus in human whole blood using the chemiluminescent microparticle immunoassay (CMIA) technology with flexible assay protocols, referred to as Chemiflex. Performed By: #### L [id number] ####[facility] ([facility])[address] [place] [address] URIC ACIDon 12-25-2022 Magnesium [Mass/Vol] 2.9 mg/dL Normal 2.3-6.6 [facility] Comment on above: Performed By: #### L [id number] ####[facility] ([facility])[address] [place] [address] BASIC METABOLIC PANELon Anion gap [Moles/Vol] 14 mmol/L Normal 7-20 [facility] Comment on above: Performed By: #### L [id number] ####[facility] ([facility])[address] [place] [address] Calcium [Mass/Vol] 9.2 mg/dL Normal 8.6-10.3 [facility] Comment on above: Performed By: #### L [id number] ####[facility] ([facility])[address] [place] [address] Chloride [Moles/Vol] 103 mmol/L Normal 98-107 [facility] Comment on above: Performed By: #### L [id number] ####[facility] ([facility])[address] [place] [address] CO2 [Moles/Vol] 23 mmol/L Normal 21-31 [facility] Comment on above: Performed By: #### L [id number] ####[facility] ([facility])[address] [place] [address] Creatinine [Mass/Vol] 1.49 mg/dL High 0.60-1.20 [facility] Comment on above: Performed By: #### L [id number] ####[facility] ([facility])[address] [place] [address] GLOMERULAR FILTRATION RATE ML/MIN/1.73 SQ M.PREDICTED 43.3 mL/min/1.73m*2 Low >60.0 [facility] Comment on above: Result Comment: The [facility]???s estimated glomerular filtration rate (eGFR) will no [...] of individuals. Performed By: #### L [id number] ####[facility] ([facility])[address] [place] [address] Glucose [Mass/Vol] 145 mg/dL High 70-100 [facility] Comment on above: Performed By: #### L [id number] ####[facility] ([facility])[address] [place] [address] Potassium [Moles/Vol] 3.6 mmol/L Normal 3.5-5.1 [facility] Comment on above: Performed By: #### L [id number] ####[facility] ([facility])[address] [place] [address] Sodium [Moles/Vol] 136 mmol/L Normal 136-145 [facility] Comment on above: Performed By: #### L [id number] ####[facility] ([facility])[address] [place] [address] Urea nitrogen [Mass/Vol] 25 mg/dL Normal 7-25 [facility] Comment on above: Performed By: #### L [id number] ####[facility] ([facility])[address] [place] [address] UREA NITROGEN/CREATININE (MASS RATIO) IN SER/PLAS 16.8 Normal [facility] Comment on above: Performed By: #### L [id number] ####[facility] ([facility])[address] [place] [address] CBC WITH AUTO DIFFERENTIALon 12-06-2022 Erythrocyte distribution width (RBC) [Ratio] 14.5 % Normal 11.5-15.0 [facility] Comment on above: Performed By: #### L [id number] ####[facility] ([facility])[address] [place] [address] ERYTHROCYTE MEAN CORPUSCULAR HEMOGLOBIN CONCENTRATION (G/DL) BY AUTOMATED 33.0 g/dL Normal 32.0-35.0 [facility] Comment on above: Performed By: #### L [id number] ####[facility] ([facility])[address] [place] [address] Hematocrit (Bld) [Volume fraction] 34.2 % Low 36.0-48.0 [facility] Comment on above: Performed By: #### L [id number] ####[facility] ([facility])[address] [place] [address] Hemoglobin (Bld) [Mass/Vol] 11.3 g/dL Low 12.0-15.0 [facility] Comment on above: Performed By: #### L [id number] ####[facility] ([facility])[address] [place] [address] MCH (RBC) [Entitic mass] 31.8 pg Normal 27.0-33.0 [facility] Comment on above: Performed By: #### L [id number] ####[facility] ([facility])[address] [place] [address] MCV (RBC) [Entitic vol] 96.3 fL Normal 82.0-98.0 [facility] Comment on above: Performed By: #### L [id number] ####[facility] ([facility])[address] [place] [address] NRBC (PER 100 WBCS) BY AUTOMATED COUNT 0.0 % Normal 0.0-0.0 [facility] Comment on above: Performed By: #### L [id number] ####[facility] ([facility])[address] [place] [address] PLATELETS (10*3/UL) IN BLOOD AUTOMATED COUNT 305 10*3/uL Normal 150-400 [facility] Comment on above: Performed By: #### L [id number] ####[facility] ([facility])[address] [place] [address] RBC (Bld) [#/Vol] 3.55 10*6/uL Low 3.80-5.00 [facility] Comment on above: Performed By: #### L [id number] ####[facility] ([facility])[address] [place] [address] WBC (Bld) [#/Vol] 8.05 10*3/uL Normal 4.00-10.60 [facility] Comment on above: Performed By: #### L [id number] ####[facility] ([facility])[address] [place] [address] HEPATIC FUNCTION PANELon Albumin [Mass/Vol] 4.4 g/dL Normal 3.5-5.7 [facility] Comment on above: Performed By: #### L [id number] ####[facility] ([facility])[address] [place] [address] ALP [Catalytic activity/Vol] 64 U/L Normal 34-104 [facility] Comment on above: Performed By: #### L [id number] ####[facility] ([facility])[address] [place] [address] ALT [Catalytic activity/Vol] 17 U/L Normal 7-52 [facility] Comment on above: Performed By: #### L [id number] ####[facility] ([facility])[address] [place] [address] AST [Catalytic activity/Vol] 16 U/L Normal 13-39 [facility] Comment on above: Performed By: #### L [id number] ####[facility] SERVICES LAB ([facility])[address] [place] [address] Bilirubin [Mass/Vol] 0.5 mg/dL Normal 0.3-1.0 [facility] Comment on above: Performed By: #### L [id number] ####[facility] ([facility])[address] [place] [address] Magnesium [Mass/Vol] 0.1 mg/dL Normal 0-0.2 [facility] Comment on above: Performed By: #### L [id number] ####[facility] ([facility])[address] [place] [address] Protein [Mass/Vol] 6.8 g/dL Normal 6.0-8.3 [facility] Comment on above: Performed By: #### L [id number] ####[facility] ([facility])[address] [place] [address] Labon 12-06-2022 Lab Normal [facility] MAGNESIUMon 12-06-2022 Magnesium [Mass/Vol] 1.7 mg/dL Low 1.9-2.7 [facility] Comment on above: Performed By: #### L [id number] ####[facility] ([facility])[address] [place] [address] MANUAL DIFFERENTIALon 2022 BASOPHILS (10*3/UL) IN BLOOD BY CALCULATION 0.16 10*3/uL Normal [facility] Comment on above: Performed By: #### L [id number] ####[facility] ([facility])[address] [place] [address] BASOPHILS/100 LEUKOCYTES IN BLOOD BY AUTOMATED COUNT 2.0 % High 0.0-1.0 [facility] Comment on above: Performed By: #### L [id number] ####[facility] ([facility])[address] [place] [address] EOSINOPHILS (10*3/UL) IN BLOOD BY CALCULATION 0.24 10*3/uL Normal [facility] Comment on above: Performed By: #### L [id number] ####[facility] ([facility])[address] [place] [address] EOSINOPHILS/100 LEUKOCYTES IN BLOOD BY AUTOMATED COUNT 3.0 % Normal 0.0-6.0 [facility] Comment on above: Performed By: #### L [id number] ####[facility] ([facility])[address] [place] [address] LYMPHOCYTES (10*3/UL) IN BLOOD BY CALCULATION 0.96 10*3/uL Low 1.20-4.00 [facility] Comment on above: Performed By: #### L [id number] ####[facility] ([facility])[address] [place] [address] LYMPHOCYTES/100 LEUKOCYTES IN BLOOD BY AUTOMATED COUNT 11.9 % Low 20.0-45.0 [facility] Comment on above: Performed By: #### L [id number] ####[facility] ([facility])[address] [place] [address] METAMYELOCYTES (10*3/UL) IN BLOOD BY CALCULATION 0.56 10*3/uL Normal [facility] Comment on above: Performed By: #### L [id number] ####[facility] ([facility])[address] [place] [address] METAMYELOCYTES/100 LEUKOCYTES IN BLOOD CELLAVISION 6.9 % Normal [facility] Comment on above: Performed By: #### L [id number] ####[facility] ([facility])[address] [place] [address] MONOCYTES (10*3/UL) IN BLOOD BY CALCUATION 0.72 10*3/uL Normal [facility] Comment on above: Performed By: #### L [id number] ####[facility] ([facility])[address] [place] [address] MONOCYTES/100 LEUKOCYTES IN BLOOD BY AUTOMATED COUNT 8.9 % Normal 5.0-12.0 [facility] Comment on above: Performed By: #### L [id number] ####[facility] ([facility])[address] [place] [address] MYELOCYTES (10*3/UL) IN BLOOD BY CALCULATION 0.16 10*3/uL Normal [facility] Comment on above: Performed By: #### L [id number] ####[facility] ([facility])[address] [place] [address] MYELOCYTES/100 LEUKOCYTES IN BLOOD CELLAVISION 2.0 % Normal 0.0-3.0 [facility] Comment on above: Performed By: #### L [id number] ####[facility] ([facility])[address] [place] [address] NEUTROPHILS (10*3/UL) IN BLOOD BY CALCULATION 5.3 10*3/uL Normal 1.6-7.6 [facility] Comment on above: Performed By: #### L [id number] ####[facility] ([facility])[address] [place] [address] NEUTROPHILS/100 LEUKOCYTES IN BLOOD BY AUTOMATED COUNT 65.3 % Normal 40.0-72.0 [facility] Comment on above: Performed By: #### L [id number] ####[facility] ([facility])[address] [place] [address] PLASMA CELLS/100 LEUKOCYTES IN BLOOD 0 % Normal [facility] Comment on above: Performed By: #### L [id number] ####[facility] ([facility])[address] [place] [address] VARIANT LYMPHOCYTES (10*3/UL) IN BLOOD BY CALCULATION 0.00 10*3/uL Normal [facility] Comment on above: Performed By: #### L [id number] ####[facility] ([facility])[address] [place] [address] VARIANT LYMPHOCYTES/100 LEUKOCYTES IN BLOOD CELLAVISION 0.0 % Normal [facility] Comment on above: Performed By: #### L [id number] ####[facility] ([facility])[address] [place] [address] PANEL REACTIVE ANTIBODYon HOLD SPECIMEN Hold for add-ons. Normal [facility] Comment on above: Result Comment: Auto resulted. Performed By: #### L [id number] ####[facility] ([facility])[address] [place] [address] HOLD SPECIMEN Hold for add-ons. Normal [facility] Comment on above: Result Comment: Auto resulted. PHOSPHORUSon 12-06-2022 Magnesium [Mass/Vol] 3.1 mg/dL Normal 2.5-5.0 [facility] Comment on above: Performed By: #### L [id number] ####[facility] ([facility])[address] [place] [address] SINGLE ANTIGEN CLASS Ion AB SCREEN COMMENTS No Class I donor spe cific antibody identified Normal [facility] Comment on above: Performed By: #### L [id number] ####[facility] TISSUE TYPING ([facility]IST[facility]RAC)[address] [place], [place] [address] CLASS I TESTED DATE Normal [facility] Comment on above: Performed By: #### L [id number] ####[facility] TISSUE [facility]YP[facility] ([facility])[address] SINGLE ANTIGEN CLASS 1 TEST METHOD Class I Single Antigen Normal [facility] Comment on above: Performed By: #### L [id number] ####[facility]ISSUE [facility]YP[facility] ([facility])[address] [place], [place] [address] SINGLE ANTIGEN CLASS IIon AB SCREEN COMMENTS No Class II donor specific antibody identified Normal [facility] Comment on above: Performed By: #### L [id number] ####[facility] TISSUE TYPING ([facility])[address] [place] [address] [facility] CLASS II TESTED DATE [facility] Comment on above: Performed By: #### L [id number] ####[facility] TISSUE TYPING ([facility])[address] SIGNED BY Signed by Sree escamilla [facility]), Waste Picker Transplant Immunology [facility] Comment on above: Performed By: #### L [id number] ####[facility] TISSUE TYPING ([facility]ISTOTRAC)[address] [place], [place] [address] Result Comment: Clas s I Antigen Microbeads Performed By: #### L [id number] ####[facility] TISSUE TYPING ([facility]ISTOTRAC)[address] [place] [address] [facility] SINGLE ANTIGEN CLASS 2 TEST METHOD Class II Single Antigen Normal [facility] Comment on above: Result Comment: Clas s II Antigen Microbeads Performed By: #### L [id number] ####[facility] TISSUE TYPING ([facility]ISTOTRAC)[address] [place] [address] [facility] TACROLIMUS LEVELon Tacrolimus (Bld) [Mass/Vol] 6.7 ng/mL Normal 5.0-20.0 [facility] Comment on above: Result Comment: The [employer] Tacrolimus assay is a delayed one-step immunoassay for the quantitative determination of tacrolimus in human whole blood using the chemiluminescent microparticle immunoassay (CMIA) technology with flexible assay protocols, referred to as Chemiflex. Performed By: #### L [id number] ####[facility] ([facility])[address] [place] [address] URIC ACIDon 12-06-2022 Magnesium [Mass/Vol] 4.2 mg/dL Normal 2.3-6.6 [facility] Comment on above: Performed By: #### L [id number] ####[facility] ([facility])[address] [place] [address] BASIC METABOLIC PANELon 11-07 Anion gap [Moles/Vol] 15 mmol/L Normal 7-20 [facility] Comment on above: Performed By: #### L [id number] ####[facility] ([facility])[address] [place] [address] Calcium [Mass/Vol] 9.0 mg/dL Normal 8.6-10.3 [facility] Comment on above: Performed By: #### L [id number] ####[facility] ([facility])[address] [place] [address] Chloride [Moles/Vol] 105 mmol/L Normal 98-107 [facility] Comment on above: Performed By: #### L [id number] ####[facility] ([facility])[address] [place] [address] CO2 [Moles/Vol] 21 mmol/L Normal 21-31 [facility] Comment on above: Performed By: #### L [id number] ####[facility] ([facility])[address] [place] [address] Creatinine [Mass/Vol] 1.77 mg/dL High 0.60-1.20 [facility] Comment on above: Performed By: #### L [id number] ####[facility] ([facility])[address] [place] [address] GLOMERULAR FILTRATION RATE ML/MIN/1.73 SQ M.PREDICTED 33.7 mL/min/1.73m*2 Low >60.0 [facility] Comment on above: Result Comment: The [facility]???s estimated glomerular filtration rate (eGFR) will no [...] of individuals. Performed By: #### L [id number] ####[facility] ([facility])[address] [place] [address] Glucose [Mass/Vol] 126 mg/dL High 70-100 [facility] Comment on above: Performed By: #### L [id number] ####[facility] ([facility])[address] [place] [address] Potassium [Moles/Vol] 4.0 mmol/L Normal 3.5-5.1 [facility] Comment on above: Performed By: #### L [id number] ####[facility] ([facility])[address] [place] [address] Sodium [Moles/Vol] 137 mmol/L Normal 136-145 [facility] Comment on above: Performed By: #### L [id number] ####[facility] ([facility])[address] [place] [address] Urea nitrogen [Mass/Vol] 29 mg/dL High 7-25 [facility] Comment on above: Performed By: #### L [id number] ####[facility] ([facility])[address] [place] [address] UREA NITROGEN/CREATININE (MASS RATIO) IN SER/PLAS 16.38 Normal [facility] Comment on above: Performed By: #### L [id number] ####[facility] ([facility])[address] [place] [address] CBC WITH AUTO DIFFERENTIALon 11-29-2022 Erythrocyte distribution width (RBC) [Ratio] 14.6 % Normal 11.5-15.0 [facility] Comment on above: Performed By: #### L [id number] ####[facility] ([facility])[address] [place] [address] ERYTHROCYTE MEAN CORPUSCULAR HEMOGLOBIN CONCENTRATION (G/DL) BY AUTOMATED 33.1 g/dL Normal 32.0-35.0 [facility] Comment on above: Performed By: #### L [id number] ####[facility] ([facility])[address] [place] [address] Hematocrit (Bld) [Volume fraction] 34.4 % Low 36.0-48.0 [facility] Comment on above: Performed By: #### L [id number] ####[facility] ([facility])[address] [place] [address] Hemoglobin (Bld) [Mass/Vol] 11.4 g/dL Low 12.0-15.0 [facility] Comment on above: Performed By: #### L [id number] ####[facility] ([facility])[address] [place] [address] MCH (RBC) [Entitic mass] 32.1 pg Normal 27.0-33.0 [facility] Comment on above: Performed By: #### L [id number] ####[facility] ([facility])[address] [address] MCV (RBC) [Entitic vol] 96.9 fL Normal 82.0-98.0 [facility] Comment on above: Performed By: #### L [id number] ####[facility] ([facility])[address] [place] [address] NRBC (PER 100 WBCS) BY AUTOMATED COUNT 0.0 % Normal 0.0-0.0 [facility] Comment on above: Performed By: #### L [id number] ####[facility] ([facility])[address] [place] [address] PLATELETS (10*3/UL) IN BLOOD AUTOMATED COUNT 276 10*3/uL Normal 150-400 [facility] Comment on above: Performed By: #### L [id number] ####[facility] ([facility])[address] [place], [place] [address] RBC (Bld) [#/Vol] 3.55 10*6/uL Low 3.80-5.00 [facility] Comment on above: Performed By: #### L [id number] ####[facility] ([facility])[address] [address] WBC (Bld) [#/Vol] 9.71 10*3/uL Normal 4.00-10.60 [facility] Comment on above: Performed By: #### L [id number] ####[facility] ([facility])[address] [place] [address] Follow-Upon 11-29-2022 Follow-Up Normal [facility] HEPATIC FUNCTION PANELon Albumin [Mass/Vol] 4.5 g/dL Normal 3.5-5.7 [facility] Comment on above: Performed By: #### L [id number] ####[facility] ([facility])[address] [place] [address] ALP [Catalytic activity/Vol] 71 U/L Normal 34-104 [facility] Comment on above: Performed By: #### L [id number] ####[facility] ([facility])[address] [place] [address] ALT [Catalytic activity/Vol] 20 U/L Normal 7-52 [facility] Comment on above: Performed By: #### L [id number] ####[facility] ([facility])[address] [place] [address] AST [Catalytic activity/Vol] 16 U/L Normal 13-39 [facility] Comment on above: Performed By: #### L [id number] ####[facility] ([facility])[address] [place] [address] Bilirubin [Mass/Vol] 0.4 mg/dL Normal 0.3-1.0 [facility] Comment on above: Performed By: #### L [id number] ####[facility] ([facility])[address] [place] [address] Magnesium [Mass/Vol] 0.1 mg/dL Normal 0-0.2 [facility] Comment on above: Performed By: #### L [id number] ####[facility] ([facility])[address] [place] [address] Protein [Mass/Vol] 6.5 g/dL Normal 6.0-8.3 [facility] Comment on above: Performed By: #### L [id number] ####[facility] ([facility])[address] [place] [address] Labon 11-29-2022 Lab Normal [facility] MAGNESIUMon 11-29-2022 Magnesium [Mass/Vol] 1.6 mg/dL Low 1.9-2.7 [facility] Comment on above: Performed By: #### L [id number] ####[facility] ([facility])[address] [place] [address] MANUAL DIFFERENTIALon 2022 BASOPHILS (10*3/UL) IN BLOOD BY CALCULATION 0.10 10*3/uL Normal [facility] Comment on above: Performed By: #### L [id number] ####[facility] ([facility])[address] [place] [address] BASOPHILS/100 LEUKOCYTES IN BLOOD BY AUTOMATED COUNT 1.0 % Normal 0.0-1.0 [facility] Comment on above: Performed By: #### L [id number] ####[facility] ([facility])[address] [place] [address] EOSINOPHILS (10*3/UL) IN BLOOD BY CALCULATION 0.19 10*3/uL Normal [facility] Comment on above: Performed By: #### L [id number] ####[facility] ([facility])[address] [place] [address] EOSINOPHILS/100 LEUKOCYTES IN BLOOD BY AUTOMATED COUNT 2.0 % Normal 0.0-6.0 [facility] Comment on above: Performed By: #### L [id number] ####[facility] ([facility])[address] [place] [address] LYMPHOCYTES (10*3/UL) IN BLOOD BY CALCULATION 1.07 10*3/uL Low 1.20-4.00 [facility] Comment on above: Performed By: #### L [id number] ####[facility] ([facility])[address] [place] [address] LYMPHOCYTES/100 LEUKOCYTES IN BLOOD BY AUTOMATED COUNT 11.0 % Low 20.0-45.0 [facility] Comment on above: Performed By: #### L [id number] ####[facility] ([facility])[address] [place] [address] METAMYELOCYTES (10*3/UL) IN BLOOD BY CALCULATION 0.29 10*3/uL Normal [facility] Comment on above: Performed By: #### L [id number] ####[facility] ([facility])[address] [place] [address] METAMYELOCYTES/100 LEUKOCYTES IN BLOOD CELLAVISION 3.0 % Normal [facility] Comment on above: Performed By: #### L [id number] ####[facility] ([facility])[address] [place] [address] MONOCYTES (10*3/UL) IN BLOOD BY CALCUATION 0.39 10*3/uL Normal [facility] Comment on above: Performed By: #### L [id number] ####[facility] ([facility])[address] [place] [address] MONOCYTES/100 LEUKOCYTES IN BLOOD BY AUTOMATED COUNT 4.0 % Low 5.0-12.0 [facility] Comment on above: Performed By: #### L [id number] ####[facility] ([facility])[address] [place] [address] NEUTROPHILS (10*3/UL) IN BLOOD BY CALCULATION 7.7 10*3/uL High 1.6-7.6 [facility] Comment on above: Performed By: #### L [id number] ####[facility] ([facility])[address] [place] [address] NEUTROPHILS/100 LEUKOCYTES IN BLOOD BY AUTOMATED COUNT 79.0 % High 40.0-72.0 [facility] Comment on above: Performed By: #### L [id number] ####[facility] ([facility])[address] [place] [address] PLASMA CELLS/100 LEUKOCYTES IN BLOOD 0 % Normal [facility] Comment on above: Performed By: #### L [id number] ####[facility] ([facility])[address] [place] [address] PLATELETS GIANT PRESENCE IN BLOOD BY LIGHT MICROSCOPY Present Normal [facility] Comment on above: Performed By: #### L [id number] ####[facility] ([facility])[address] [place] [address] VARIANT LYMPHOCYTES (10*3/UL) IN BLOOD BY CALCULATION 0.00 10*3/uL Normal [facility] Comment on above: Performed By: #### L [id number] ####[facility] ([facility])[address] [place] [address] VARIANT LYMPHOCYTES/100 LEUKOCYTES IN BLOOD CELLAVISION 0.0 % Normal [facility] Comment on above: Performed By: #### L [id number] ####[facility] ([facility])[address] [place] [address] PHOSPHORUSon 11-29-2022 Magnesium [Mass/Vol] 3.1 mg/dL Normal 2.5-5.0 [facility] Comment on above: Performed By: #### L [id number] ####[facility] ([facility])[address] [place] [address] TACROLIMUS LEVELon Tacrolimus (Bld) [Mass/Vol] 7.0 ng/mL Normal 5.0-20.0 [facility] Comment on above: Result Comment: The [employer] Tacrolimus assay is a delayed one-step immunoassay for the quantitative determination of tacrolimus in human whole blood using the chemiluminescent microparticle immunoassay (CMIA) technology with flexible assay protocols, referred to as Chemiflex. Performed By: #### L [id number] ####[facility] ([facility])[address] [place] [address] URIC ACIDon 11-29-2022 Magnesium [Mass/Vol] 3.2 mg/dL Normal 2.3-6.6 [facility] Comment on above: Performed By: #### L [id number] ####[facility] ([facility])[address] [place] [address] Orders Onlyon 11-25-2022 Orders Only [facility] 36on 11-22-2022 36 Patient called into the office stating she needs clearance from the Global Compensation Director/Tx surgeon to get her teeth cleaned. Please advise. Bilingual Research Interviewer is not sure if there is a time frame of how long the patient should wait to have dental work after tx. [facility] 36on 11-19-2022 36 Patient called into the office requesting to have her Bactrim sent to a local pharmacy since her speciality pharmacy is out of stock. Bilingual Research Interviewer [facility] local [facility] BASIC METABOLIC PANELon 11-06 Anion gap [Moles/Vol] 12 mmol/L Normal 7-20 [facility] Comment on above: Performed By: #### L [id number] ####[facility] ([facility])[address] [place] [address] Calcium [Mass/Vol] 9.3 mg/dL Normal 8.6-10.3 [facility] Comment on above: Performed By: #### L [id number] ####[facility] ([facility])[address] [place] [address] Chloride [Moles/Vol] 103 mmol/L Normal 98-107 [facility] Comment on above: Performed By: #### L [id number] ####[facility] ([facility])[address] [place] [address] CO2 [Moles/Vol] 23 mmol/L Normal 21-31 [facility] Comment on above: Performed By: #### L [id number] ####[facility] ([facility])[address] [place] [address] Creatinine [Mass/Vol] 1.45 mg/dL High 0.60-1.20 [facility] Comment on above: Performed By: #### L [id number] ####[facility] ([facility])[address] [place] [address] GLOMERULAR FILTRATION RATE ML/MIN/1.73 SQ M.PREDICTED 43.2 mL/min/1.73m*2 Low >60.0 [facility] Center Comment on above: Result Comment: [facility]???s estimated glomerular filtration rate (eGFR) will no [...] of individuals. Performed By: #### L [id number] ####[facility] ([facility])[address] [place] [address] Glucose [Mass/Vol] 137 mg/dL High 70-100 [facility] Comment on above: Performed By: #### L [id number] ####[facility] ([facility])[address] [place] [address] Potassium [Moles/Vol] 3.7 mmol/L Normal 3.5-5.1 [facility] Comment on above: Performed By: #### L [id number] ####[facility] ([facility])[address] [place] [address] Sodium [Moles/Vol] 134 mmol/L Low 136-145 [facility] Comment on above: Performed By: #### L [id number] ####[facility] ([facility])[address] [place] [address] Urea nitrogen [Mass/Vol] 23 mg/dL Normal 7-25 [facility] Comment on above: Performed By: #### L [id number] ####[facility] ([facility])[address] [place] [address] UREA NITROGEN/CREATININE (MASS RATIO) IN SER/PLAS 15.86 Normal [facility] Comment on above: Performed By: #### L [id number] ####[facility] ([facility])[address] [place] [address] CBC WITH AUTO DIFFERENTIALon 11-19-2022 Erythrocyte distribution width (RBC) [Ratio] 14.7 % Normal 11.5-15.0 [facility] Comment on above: Performed By: #### L [id number] ####[facility] ([facility])[address] [place] [address] ERYTHROCYTE MEAN CORPUSCULAR HEMOGLOBIN CONCENTRATION (G/DL) BY AUTOMATED 34.0 g/dL Normal 32.0-35.0 [facility] Comment on above: Performed By: #### L [id number] ####[facility] ([facility])[address] [place] [address] Hematocrit (Bld) [Volume fraction] 34.1 % Low 36.0-48.0 [facility] Comment on above: Performed By: #### L [id number] ####[facility] ([facility])[address] [place] [address] Hemoglobin (Bld) [Mass/Vol] 11.6 g/dL Low 12.0-15.0 [facility] Comment on above: Performed By: #### L [id number] ####[facility] ([facility])[address] [place] [address] MCH (RBC) [Entitic mass] 32.1 pg Normal 27.0-33.0 [facility] Comment on above: Performed By: #### L [id number] ####[facility] ([facility])[address] [place] [address] MCV (RBC) [Entitic vol] 94.5 fL Normal 82.0-98.0 [facility] Comment on above: Performed By: #### L [id number] ####[facility] ([facility])[address] [place] [address] NRBC (PER 100 WBCS) BY AUTOMATED COUNT 0.0 % Normal 0.0-0.0 [facility] Comment on above: Performed By: #### L [id number] ####[facility] ([facility])[address] [place] [address] PLATELETS (10*3/UL) IN BLOOD AUTOMATED COUNT 343 10*3/uL Normal 150-400 [facility] Comment on above: Performed By: #### L [id number] ####[facility] ([facility])[address] [place] [address] RBC (Bld) [#/Vol] 3.61 10*6/uL Low 3.80-5.00 [facility] Comment on above: Performed By: #### L [id number] ####[facility] ([facility])[address] [place] [address] WBC (Bld) [#/Vol] 9.64 10*3/uL Normal 4.00-10.60 [facility] Comment on above: Performed By: #### L [id number] ####[facility] ([facility])[address] [place] [address] HEPATIC FUNCTION PANELon Albumin [Mass/Vol] 4.3 g/dL Normal 3.5-5.7 [facility] Comment on above: Performed By: #### L [id number] ####[facility] ([facility])[address] [place] [address] ALP [Catalytic activity/Vol] 75 U/L Normal 34-104 [facility] Comment on above: Performed By: #### L [id number] ####[facility] ([facility])[address] [place] [address] ALT [Catalytic activity/Vol] 16 U/L Normal 7-52 [facility] Comment on above: Performed By: #### L [id number] ####[facility] ([facility])[address] [place] [address] AST [Catalytic activity/Vol] 15 U/L Normal 13-39 [facility] Comment on above: Performed By: #### L [id number] ####[facility] ([facility])[address] [place] [address] Bilirubin [Mass/Vol] 0.4 mg/dL Normal 0.3-1.0 [facility] Comment on above: Performed By: #### L [id number] ####[facility] ([facility])[address] [place] [address] Magnesium [Mass/Vol] 0.1 mg/dL Normal 0-0.2 [facility] Comment on above: Performed By: #### L [id number] ####[facility] ([facility])[address] [place] [address] Protein [Mass/Vol] 7.0 g/dL Normal 6.0-8.3 [facility] Comment on above: Performed By: #### L [id number] ####[facility] ([facility])[address] [place] [address] Labon 11-19-2022 Lab Normal [facility] MAGNESIUMon 11-19-2022 Magnesium [Mass/Vol] 1.8 mg/dL Low 1.9-2.7 [facility] Comment on above: Performed By: #### L [id number] ####[facility] ([facility])[address] [place] [address] MANUAL DIFFERENTIALon 2022 BASOPHILS (10*3/UL) IN BLOOD BY CALCULATION 0.10 10*3/uL Normal [facility] Comment on above: Performed By: #### L [id number] ####[facility] ([facility])[address] [place] [address] BASOPHILS/100 LEUKOCYTES IN BLOOD BY AUTOMATED COUNT 1.0 % Normal 0.0-1.0 [facility] Comment on above: Performed By: #### L [id number] ####[facility] ([facility])[address] [place] [address] EOSINOPHILS (10*3/UL) IN BLOOD BY CALCULATION 0.00 10*3/uL Normal [facility] Comment on above: Performed By: #### L [id number] ####[facility] ([facility])[address] [place] [address] EOSINOPHILS/100 LEUKOCYTES IN BLOOD BY AUTOMATED COUNT 0.0 % Normal 0.0-6.0 [facility] Comment on above: Performed By: #### L [id number] ####[facility] ([facility])[address] [place] [address] LYMPHOCYTES (10*3/UL) IN BLOOD BY CALCULATION 1.18 10*3/uL Low 1.20-4.00 [facility] Comment on above: Performed By: #### L [id number] ####[facility] ([facility])[address] [place] [address] LYMPHOCYTES/100 LEUKOCYTES IN BLOOD BY AUTOMATED COUNT 12.2 % Low 20.0-45.0 [facility] Comment on above: Performed By: #### L [id number] ####[facility] ([facility])[address] [place] [address] METAMYELOCYTES (10*3/UL) IN BLOOD BY CALCULATION 0.30 10*3/uL Normal [facility] Comment on above: Performed By: #### L [id number] ####[facility] ([facility])[address] [place] [address] METAMYELOCYTES/100 LEUKOCYTES IN BLOOD CELLAVISION 3.1 % Normal [facility] Comment on above: Performed By: #### L [id number] ####[facility] ([facility])[address] [place] [address] MONOCYTES (10*3/UL) IN BLOOD BY CALCUATION 0.30 10*3/uL Normal [facility] Comment on above: Performed By: #### L [id number] ####[facility] ([facility])[address] [place] [address] MONOCYTES/100 LEUKOCYTES IN BLOOD BY AUTOMATED COUNT 3.1 % Low 5.0-12.0 [facility] Comment on above: Performed By: #### L [id number] ####[facility] ([facility])[address] [place] [address] NEUTROPHILS (10*3/UL) IN BLOOD BY CALCULATION 7.8 10*3/uL High 1.6-7.6 [facility] Comment on above: Performed By: #### L [id number] ####[facility] ([facility])[address] [place] [address] NEUTROPHILS/100 LEUKOCYTES IN BLOOD BY AUTOMATED COUNT 80.6 % High 40.0-72.0 [facility] Comment on above: Performed By: #### L [id number] ####[facility] ([facility])[address] [place] [address] PLASMA CELLS/100 LEUKOCYTES IN BLOOD 0 % Normal [facility] Comment on above: Performed By: #### L [id number] ####[facility] ([facility])[address] [place] [address] VARIANT LYMPHOCYTES (10*3/UL) IN BLOOD BY CALCULATION 0.00 10*3/uL Normal [facility] Comment on above: Performed By: #### L [id number] ####[facility] ([facility])[address] [place] [address] VARIANT LYMPHOCYTES/100 LEUKOCYTES IN BLOOD CELLAVISION 0.0 % Normal [facility] Comment on above: Performed By: #### L [id number] ####[facility] ([facility])[address] [address] PHOSPHORUSon 11-19-2022 Magnesium [Mass/Vol] 2.9 mg/dL Normal 2.3-6.6 [facility] Comment on above: Performed By: #### L [id number] ####[facility] ([facility])[address] [place] [address] Performed By: #### L [id number] ####[facility] ([facility])[address] [place] [address] TACROLIMUS LEVELon Tacrolimus (Bld) [Mass/Vol] 11.7 ng/mL Normal 5.0-20.0 [facility] Comment on above: Result Comment: The [employer] Tacrolimus assay is a delayed one-step immunoassay for the quantitative determination of tacrolimus in human whole blood using the chemiluminescent microparticle immunoassay (CMIA) technology with flexible assay protocols, referred to as Chemiflex. Performed By: #### L [id number] ####[facility] ([facility])[address] [place] [address] Follow-Upon 11-08-2022 Follow-Up Normal [facility] BASIC METABOLIC PANELon Anion gap [Moles/Vol] 9 mmol/L Normal 7-20 [facility] Comment on above: Performed By: #### L [id number] ####[facility] ([facility])[address] [place] [address] Calcium [Mass/Vol] 9.2 mg/dL Normal 8.6-10.3 [facility] Comment on above: Performed By: #### L [id number] ####[facility] ([facility])[address] [place] [address] Chloride [Moles/Vol] 103 mmol/L Normal 98-107 [facility] Comment on above: Performed By: #### L [id number] ####[facility] ([facility])[address] [place] [address] CO2 [Moles/Vol] 24 mmol/L Normal 21-31 [facility] Comment on above: Performed By: #### L [id number] ####[facility] ([facility])[address] [place] [address] Creatinine [Mass/Vol] 1.46 mg/dL High 0.60-1.20 [facility] Comment on above: Performed By: #### L [id number] ####[facility] ([facility])[address] [place] [address] GLOMERULAR FILTRATION RATE ML/MIN/1.73 SQ M.PREDICTED 42.9 mL/min/1.73m*2 Low >60.0 [facility] Comment on above: Result Comment: [facility]???s estimated glomerular filtration rate (eGFR) will no [...] of individuals. Performed By: #### L [id number] ####[facility] ([facility])[address] [place] [address] Glucose [Mass/Vol] 115 mg/dL High 70-100 [facility] Comment on above: Performed By: #### L [id number] ####[facility] ([facility])[address] [place] [address] Potassium [Moles/Vol] 3.9 mmol/L Normal 3.5-5.1 [facility] Comment on above: Performed By: #### L [id number] ####[facility] ([facility])[address] [place] [address] Sodium [Moles/Vol] 136 mmol/L Normal 136-145 [facility] Comment on above: Performed By: #### L [id number] ####[facility] ([facility])[address] [place] [address] Urea nitrogen [Mass/Vol] 26 mg/dL High 7-25 [facility] Comment on above: Performed By: #### L [id number] ####[facility] ([facility])[address] [place] [address] UREA NITROGEN/CREATININE (MASS RATIO) IN SER/PLAS 17.81 Normal [facility] Comment on above: Performed By: #### L [id number] ####[facility] ([facility])[address] [place] [address] BK VIRUS, PLASMA, QUANTITATI VEon 11-06-2022 BK QUANTITATION Not detected Normal [facility] Comment on above: Result Comment: Meth od: BK virus was measured by quantitative polymerase chain reaction using a fluorescent hydrolysis probe targeting the polyomavirus BK WIRE THREADER-1 gene.The lower limit of quantitation of the assay is 500 copies of BK genome per milliliter of plasma or urine, and any detectable BK DNA below that level is reported as: Detected, <500 copies/ml. Serial BK virus measurement can be used to monitor disease activity. (Reference: Gordon chaneyl. J CLIN MICRO 2004; 42:1565-3957).This test was developed and its performance characteristics determined by the [facility]. It has not been approved by the US Food and Drug Administration. However, such approval is not required for clinical implementation, and test results have been shown to be clinically useful. This laboratory is CAP accredited and CLIA certified to perform high complexity testing. Performed By: #### L [id number] ####[facility] ([facility])[address] [place] [address] BK QUANTITATION LOG Not detected Normal [facility] Comment on above: Performed By: #### L [id number] ####[facility] ([facility])[address] [place] [address] CBC WITH AUTO DIFFERENTIALon 11-06-2022 Basophils (Bld) [#/Vol] 0.08 10*3/uL Normal 0.00-0.20 [facility] Comment on above: Performed By: #### L [id number] ####[facility] ([facility])[address] [place] [address] Basophils/100 WBC (Bld) 1.0 % Normal 0.0-1.0 [facility] Comment on above: Performed By: #### L [id number] ####[facility] ([facility])[address] [place] [address] Eosinophils (Bld) [#/Vol] 0.10 10*3/uL Normal 0.00-0.50 [facility] Comment on above: Performed By: #### L [id number] ####[facility] ([facility])[address] [place] [address] Eosinophils/100 WBC (Bld) 1.2 % Normal 0.0-6.0 [facility] Comment on above: Performed By: #### L [id number] ####[facility] ([facility])[address] [place] [address] Erythrocyte distribution width (RBC) [Ratio] 14.8 % Normal 11.5-15.0 [facility] Comment on above: Performed By: #### L [id number] ####[facility] ([facility])[address] [place] [address] ERYTHROCYTE MEAN CORPUSCULAR HEMOGLOBIN CONCENTRATION (G/DL) BY AUTOMATED 32.0 g/dL Normal 32.0-35.0 [facility] Comment on above: Performed By: #### L [id number] ####[facility] ([facility])[address] [place] [address] Hematocrit (Bld) [Volume fraction] 32.8 % Low 36.0-48.0 [facility] Comment on above: Performed By: #### L [id number] ####[facility] ([facility])[address] [place] [address] Hemoglobin (Bld) [Mass/Vol] 10.5 g/dL Low 12.0-15.0 [facility] Comment on above: Performed By: #### L [id number] ####[facility] ([facility])[address] [place] [address] Immature granulocytes (Bld) [#/Vol] 0.31 10*3/uL High 0.00-0.20 [facility] Comment on above: Performed By: #### L [id number] ####[facility] ([facility])[address] [place] [address] Immature granulocytes/100 WBC (Bld) 3.7 % High 0.0-1.0 [facility] Comment on above: Performed By: #### L [id number] ####[facility] ([facility])[address] [place] [address] Lymphocytes (Bld) [#/Vol] 0.69 10*3/uL Low 1.20-4.00 [facility] Comment on above: Performed By: #### L [id number] ####[facility] ([facility])[address] [place] [address] Lymphocytes/100 WBC (Bld) 8.2 % Low 20.0-45.0 [facility] Comment on above: Performed By: #### L [id number] ####[facility] ([facility])[address] [place] [address] MCH (RBC) [Entitic mass] 30.6 pg Normal 27.0-33.0 [facility] Comment on above: Performed By: #### L [id number] ####[facility] ([facility])[address] [place] [address] MCV (RBC) [Entitic vol] 95.6 fL Normal 82.0-98.0 [facility] Comment on above: Performed By: #### L [id number] ####[facility] ([facility])[address] [place] [address] Monocytes (Bld) [#/Vol] 0.31 10*3/uL Normal 0.10-1.00 [facility] Comment on above: Performed By: #### L [id number] ####[facility] ([facility])[address] [place] [address] Monocytes/100 WBC (Bld) 3.7 % Low 5.0-12.0 [facility] Comment on above: Performed By: #### L [id number] ####[facility] ([facility])[address] [place] [address] Neutrophils (Bld) [#/Vol] 6.91 10*3/uL Normal 1.60-7.60 [facility] Comment on above: Performed By: #### L [id number] ####[facility] ([facility])[address] [place] [address] Neutrophils/100 WBC (Bld) 82.2 % High 40.0-72.0 [facility] Comment on above: Performed By: #### L [id number] ####[facility] ([facility])[address] [place] [address] NRBC (PER 100 WBCS) BY AUTOMATED COUNT 0.0 % Normal 0.0-0.0 [facility] Comment on above: Performed By: #### L [id number] ####[facility] ([facility])[address] [place] [address] PLATELETS (10*3/UL) IN BLOOD AUTOMATED COUNT 280 10*3/uL Normal 150-400 [facility] Comment on above: Performed By: #### L [id number] ####[facility] ([facility])[address] [place] [address] RBC (Bld) [#/Vol] 3.43 10*6/uL Low 3.80-5.00 [facility] Comment on above: Performed By: #### L [id number] ####[facility] ([facility])[address] [place] [address] WBC (Bld) [#/Vol] 8.40 10*3/uL Normal 4.00-10.60 [facility] Comment on above: Performed By: #### L [id number] ####[facility] ([facility])[address] [place] [address] CREATININE, URINE, RANDOMon 11-06-2022 Creatinine (U) [Mass/Vol] 62.0 mg/dL Normal 26-299 [facility] Comment on above: Performed By: #### L [id number] ####[facility] ([facility])[address] [place] [address] HEMOGLOBIN A1Con 11-06-2022 Glucose [Mass/Vol] 105.41 mg/dL Normal [facility] Comment on above: Performed By: #### L [id number] ####[facility] ([facility])[address] [place] [address] HbA1c (Bld) [Mass fraction] 5.3 % Normal 4.0-6.0 [facility] Comment on above: Performed By: #### L [id number] ####[facility] ([facility])[address] [place] [address] HEPATIC FUNCTION PANELon Albumin [Mass/Vol] 4.3 g/dL Normal 3.5-5.7 [facility] Comment on above: Performed By: #### L [id number] ####[facility] ([facility])[address] [place] [address] ALP [Catalytic activity/Vol] 83 U/L Normal 34-104 [facility] Comment on above: Performed By: #### L [id number] ####[facility] ([facility])[address] [place] [address] ALT [Catalytic activity/Vol] 15 U/L Normal 7-52 [facility] Comment on above: Performed By: #### L [id number] ####[facility] ([facility])[address] [place] [address] AST [Catalytic activity/Vol] 13 U/L Normal 13-39 [facility] Comment on above: Performed By: #### L [id number] ####[facility] ([facility])[address] [place] [address] Bilirubin [Mass/Vol] 0.4 mg/dL Normal 0.3-1.0 [facility] Comment on above: Performed By: #### L [id number] ####[facility] ([facility])[address] [place] [address] Magnesium [Mass/Vol] 0.0 mg/dL Normal 0-0.2 [facility] Comment on above: Performed By: #### L [id number] ####[facility] ([facility])[address] [place] [address] Protein [Mass/Vol] 6.7 g/dL Normal 6.0-8.3 [facility] Comment on above: Performed By: #### L [id number] ####[facility] ([facility])[address] [place] [address] LIPID PANELon 11-06-2022 CHOL/HDL 4.43 mg/dL Normal [facility] Comment on above: Performed By: #### L [id number] ####[facility] ([facility])[address] [place] [address] Cholesterol [Mass/Vol] 266 mg/dL High 120-200 [facility] Comment on above: Performed By: #### L [id number] ####[facility] ([facility])[address] [place] [address] Magnesium [Mass/Vol] 307 mg/dL High 40-149 [facility] Comment on above: Result Comment: TRIG LYCERIDE REFERENCE RANGE:20 YEARS AND OLDER CARDIOVASCULAR RISKLESS THAN 150 mg/dL LOW [id number] TO 199 mg/dL BORDERLINE [id number] mg/dL AND GREATER HIGH RISK Performed By: #### L [id number] ####[facility] ([facility])[address] [place] [address] Magnesium [Mass/Vol] 145 mg/dL Normal 0-160 [facility] Comment on above: Performed By: #### L [id number] ####[facility] (BEAKER)[address] [place] [address] Magnesium [Mass/Vol] 60 mg/dL Normal 23-92 [facility] Comment on above: Performed By: #### L [id number] ####[facility] ([facility])[address] [facility] [place] [address] NON HDL CHOL. (LDL+VLDL) 206 Normal [facility] Comment on above: Performed By: #### L [id number] ####[facility] ([facility])[address] [facility] [address] TOTAL VLDL-C 61 mg/dL High 0-40 [facility] Comment on above: Performed By: #### L [id number] ####[facility] ([facility])[address] [place] [address] Labon 11-06-2022 Lab Normal [facility] MAGNESIUMon 11-06-2022 Magnesium [Mass/Vol] 1.7 mg/dL Low 1.9-2.7 [facility] Comment on above: Performed By: #### L [id number] ####[facility] ([facility])[address] [place] [address] CHRIST PROSPERAon 11-06-2022 PROSPERA RESULT Results to be mailed directly to physician's office by reference lab. Normal [facility] Comment on above: Performed By: #### L [id number] ####[facility], PANEL REACTIVE ANTIBODYon HOLD SPECIMEN Hold for add-ons. Normal [facility] Comment on above: Result Comment: Auto resulted. Performed By: #### L [id number] ####[facility] ([facility])[address] [place] [address] PHOSPHORUSon 11-06-2022 Magnesium [Mass/Vol] 2.9 mg/dL Normal 2.5-5.0 [facility] Comment on above: Performed By: #### L [id number] ####[facility] ([facility])[address] [place] [address] PROTEIN, URINE, RANDOMon Protein (U) [Mass/Vol] 14.0 mg/dL [facility] Comment on above: Result Comment: Ther e are no established reference values for random urine specimens. Performed By: #### L [id number] ####[facility] (BEAKER)[address] [place] [address] SINGLE ANTIGEN CLASS Ion AB SCREEN COMMENTS No Class I donor spe cific antibody identified Normal [facility] Comment on above: Performed By: #### L [id number] ####[facility] TISSUE [facility]YP[facility] (HISTOTRAC)[address] [place] [address] [place] CLASS I TESTED DATE Normal [facility] Comment on above: Performed By: #### L [id number] ####[facility] TISSUE [facility]YP[facility] (HISTOTRAC)[address] [place] [address] [place] SINGLE ANTIGEN CLASS 1 TEST METHOD Class I Single Antigen Normal [facility] Comment on above: Performed By: #### L [id number] ####[facility] TISSUE TYP[facility] (HISTOTRAC)[address] [place] [address] [facility] SINGLE ANTIGEN CLASS IIon AB SCREEN COMMENTS No Class II donor specific antibody identified Normal [facility] Comment on above: Performed By: #### L [id number] ####[facility] TISSUE TYPING (HISTOTRAC)[address] [place] [address] [place] CLASS II TESTED DATE [facility] Comment on above: Performed By: #### L [id number] ####[facility] TISSUE TYPING (HISTOTRAC)[address] [place] [address] [facility] SIGNED BY Signed by Sree escamilla [facility] MT(ASCP), Waste Picker Transplant Immunology [facility] Comment on above: Performed By: #### L [id number] ####[facility] TISSUE TYPING (HISTOTRAC)[address] [place] [address] [place] Result Comment: Clas s I Antigen Microbeads Performed By: #### L [id number] ####[facility] TISSUE TYPING (HISTOTRAC)[address] [place] [address] [place] SINGLE ANTIGEN CLASS 2 TEST METHOD Class II Single Antigen Normal [facility] Comment on above: Result Comment: Clas s II Antigen Microbeads Performed By: #### L [id number] ####[facility] TISSUE TYPING (HISTOTRAC)[address] [place] [address] [place] TACROLIMUS LEVELon Tacrolimus (Bld) [Mass/Vol] 8.1 ng/mL Normal 5.0-20.0 [facility] Comment on above: Result Comment: The [employer] Tacrolimus assay is a delayed one-step immunoassay for the quantitative determination of tacrolimus in human whole blood using the chemiluminescent microparticle immunoassay (CMIA) technology with flexible assay protocols, referred to as Chemiflex. Performed By: #### L [id number] ####[facility] ([facility])[address] [place] [address] URIC ACIDon 11-06-2022 Magnesium [Mass/Vol] 3.0 mg/dL Normal 2.3-6.6 [facility] Comment on above: Performed By: #### L [id number] ####[facility] ([facility])[address] [place] [address] BASIC METABOLIC PANELon 10-06 Anion gap [Moles/Vol] 9 mmol/L Normal 7-20 [facility] Comment on above: Performed By: #### L [id number] ####[facility] ([facility])[address] [place] [address] Calcium [Mass/Vol] 9.5 mg/dL Normal 8.6-10.3 [facility] Comment on above: Performed By: #### L [id number] ####[facility] (BEAKER)[address] [place] [address] Chloride [Moles/Vol] 102 mmol/L Normal 98-107 [facility] Comment on above: Performed By: #### L [id number] ####[facility] ([facility]AKER)[address] [place] [address] CO2 [Moles/Vol] 25 mmol/L Normal 21-31 [facility] Comment on above: Performed By: #### L [id number] ####[facility] ([facility])[address] [place] [address] Creatinine [Mass/Vol] 1.54 mg/dL High 0.60-1.20 [facility] Comment on above: Performed By: #### L [id number] ####[facility] ([facility])[address] [place] [address] GLOMERULAR FILTRATION RATE ML/MIN/1.73 SQ M.PREDICTED 40.2 mL/min/1.73m*2 Low >60.0 [facility] Comment on above: Result Comment: The [facility]???s estimated glomerular filtration rate (eGFR) will no [...] of individuals. Performed By: #### L [id number] ####[facility] ([facility])[address] [place] [address] Glucose [Mass/Vol] 107 mg/dL High 70-100 [facility] Comment on above: Performed By: #### L [id number] ####[facility] ([facility])[address] [place] [address] Potassium [Moles/Vol] 3.9 mmol/L Normal 3.5-5.1 [facility] Comment on above: Performed By: #### L [id number] ####[facility] ([facility])[address] [place] [address] Sodium [Moles/Vol] 136 mmol/L Normal 136-145 [facility] Comment on above: Performed By: #### L [id number] ####[facility] ([facility])[address] [place] [address] Urea nitrogen [Mass/Vol] 30 mg/dL High 7-25 [facility] Comment on above: Performed By: #### L [id number] ####[facility] ([facility])[address] [place] [address] UREA NITROGEN/CREATININE (MASS RATIO) IN SER/PLAS 19.48 Normal [facility] Comment on above: Performed By: #### L [id number] ####[facility] ([facility])[address] [place] [address] CBC WITH AUTO DIFFERENTIALon 10-23-2022 Basophils (Bld) [#/Vol] 0.10 10*3/uL Normal 0.00-0.20 [facility] Comment on above: Performed By: #### L [id number] ####[facility] ([facility])[address] [place] [address] Basophils/100 WBC (Bld) 1.1 % High 0.0-1.0 [facility] Comment on above: Performed By: #### L [id number] ####[facility] ([facility])[address] [place] [address] Eosinophils (Bld) [#/Vol] 0.10 10*3/uL Normal 0.00-0.50 [facility] Comment on above: Performed By: #### L [id number] ####[facility] ([facility])[address] [place] [address] Eosinophils/100 WBC (Bld) 1.1 % Normal 0.0-6.0 [facility] Comment on above: Performed By: #### L [id number] ####[facility] ([facility])[address] [place] [address] Erythrocyte distribution width (RBC) [Ratio] 14.3 % Normal 11.5-15.0 [facility] Comment on above: Performed By: #### L [id number] ####[facility] ([facility])[address] [place] [address] ERYTHROCYTE MEAN CORPUSCULAR HEMOGLOBIN CONCENTRATION (G/DL) BY AUTOMATED 32.6 g/dL Normal 32.0-35.0 [facility] Comment on above: Performed By: #### L [id number] ####[facility] (BEAKER)[address] [place] [address] Hematocrit (Bld) [Volume fraction] 32.5 % Low 36.0-48.0 [facility] Comment on above: Performed By: #### L [id number] ####[facility] (BEAKER)[address] [place] [address] Hemoglobin (Bld) [Mass/Vol] 10.6 g/dL Low 12.0-15.0 [facility] Comment on above: Performed By: #### L [id number] ####[facility] (BEAKER)[address] [place] [address] Immature granulocytes (Bld) [#/Vol] 0.35 10*3/uL High 0.00-0.20 [facility] Comment on above: Performed By: #### L [id number] ####[facility] (BEAKER)[address] [place] [address] Immature granulocytes/100 WBC (Bld) 3.9 % High 0.0-1.0 [facility] Comment on above: Performed By: #### L [id number] ####[facility] (BEAKER)[address] [place] [address] Lymphocytes (Bld) [#/Vol] 0.49 10*3/uL Low 1.20-4.00 [facility] Comment on above: Performed By: #### L [id number] ####[facility] (BEAKER)[address] [place] [address] Lymphocytes/100 WBC (Bld) 5.5 % Low 20.0-45.0 [facility] Comment on above: Performed By: #### L [id number] ####[facility] (BEAKER)[address] [place] [address] MCH (RBC) [Entitic mass] 30.5 pg Normal 27.0-33.0 [facility] Comment on above: Performed By: #### L [id number] ####[facility] (BEAKER)[address] [place] [address] MCV (RBC) [Entitic vol] 93.4 fL Normal 82.0-98.0 [facility] Comment on above: Performed By: #### L [id number] ####[facility] (BEAKER)[address] [place] [address] Monocytes (Bld) [#/Vol] 0.56 10*3/uL Normal 0.10-1.00 [facility] Comment on above: Performed By: #### L [id number] ####[facility] (BEAKER)[address] [place] [address] Monocytes/100 WBC (Bld) 6.2 % Normal 5.0-12.0 [facility] Comment on above: Performed By: #### L [id number] ####[facility] (BEAKER)[address] [place] [address] Neutrophils (Bld) [#/Vol] 7.39 10*3/uL Normal 1.60-7.60 [facility] Comment on above: Performed By: #### L [id number] ####[facility] (BEAKER)[address] [place] [address] Neutrophils/100 WBC (Bld) 82.2 % High 40.0-72.0 [facility] Comment on above: Performed By: #### L [id number] ####[facility] (BEAKER)[address] [place] [address] NRBC (PER 100 WBCS) BY AUTOMATED COUNT 0.0 % Normal 0.0-0.0 [facility] Comment on above: Performed By: #### L [id number] ####[facility] (BEAKER)[address] [place] [address] PLATELETS (10*3/UL) IN BLOOD AUTOMATED COUNT 293 10*3/uL Normal 150-400 [facility] Comment on above: Performed By: #### L [id number] ####[facility] (BEAKER)[address] [place] [address] RBC (Bld) [#/Vol] 3.48 10*6/uL Low 3.80-5.00 [facility] Comment on above: Performed By: #### L [id number] ####[facility] ([facility])[address] [place] [address] WBC (Bld) [#/Vol] 8.99 10*3/uL Normal 4.00-10.60 [facility] Comment on above: Performed By: #### L [id number] ####[facility] ([facility])[address] [place] [address] Follow-Upon 10-23-2022 Follow-Up Normal [facility] HCV QUANTITATIVE TMAon 10-23 HCV QUANTITATIVE LOG Not detected Normal [facility] Comment on above: Order Comment: The A ptima HCV Quant Dx assay is a real-time scrip clerk-mediated amplification (TMA) test which has a dynamic [...] or blood products. Performed By: #### L [id number] ####[facility] ([facility])[address] [place] [address] HCV TMA INTERP Not detected Normal Not Detected [facility] Comment on above: Order Comment: The A ptima HCV Quant Dx assay is a real-time scrip clerk-mediated amplification (TMA) test which has a dynamic [...] or blood products. Performed By: #### L [id number] ####[facility] ([facility])[address] [place] [address] HCV TMA QUANTITATIVE Not detected Normal [facility] Comment on above: Order Comment: The A ptima HCV Quant Dx assay is a real-time scrip clerk-mediated amplification (TMA) test which has a dynamic [...] or blood products. Performed By: #### L [id number] ####[facility] ([facility])[address] [place] [address] HEPATIC FUNCTION PANELon Albumin [Mass/Vol] 4.3 g/dL Normal 3.5-5.7 [facility] Comment on above: Performed By: #### L [id number] ####[facility] ([facility])[address] [place] [address] ALP [Catalytic activity/Vol] 90 U/L Normal 34-104 [facility] Comment on above: Performed By: #### L [id number] ####[facility] ([facility])[address] [place] [address] ALT [Catalytic activity/Vol] 14 U/L Normal 7-52 [facility] Comment on above: Performed By: #### L [id number] ####[facility] ([facility])[address] [place] [address] AST [Catalytic activity/Vol] 12 U/L Low 13-39 [facility] Comment on above: Performed By: #### L [id number] ####[facility] ([facility])[address] [place] [address] Bilirubin [Mass/Vol] 0.3 mg/dL Normal 0.3-1.0 [facility] Comment on above: Performed By: #### L [id number] ####[facility] (BEAKER)[address] [place] [address] Magnesium [Mass/Vol] 0.0 mg/dL Normal 0-0.2 [facility] Comment on above: Performed By: #### L [id number] ####[facility] (BEAKER)[address] [place] [address] Protein [Mass/Vol] 6.8 g/dL Normal 6.0-8.3 [facility] Comment on above: Performed By: #### L [id number] ####[facility] (BEAKER)[address] [place] [address] HEPATITIS B QUANTITATIVE PCR on 10-23-2022 HBV DNA, QUANT PCR (IU/ML) Not detected Normal [facility] Comment on above: Performed By: #### L [id number] ####[facility] ([facility])[address] [place] [address] HBV DNA, QUANT PCR (LOG IU/ML) Not detected Normal [facility] Comment on above: Result Comment: Perf ormed by [employer],[address] [place] [address] [email or web address], Kamari Bennett MD, PHD, Lab. Director Performed By: #### L [id number] ####[facility] ([facility])[address] [place] [address] HBV DNA, QUANT PCR INTERP Not detected Normal Not Detected [facility] Comment on above: Result Comment: INTE RPRETIVE [...] Tissue-Based Products (HCT/P). Performed By: #### L [id number] ####[facility] ([facility])[address] [place] [address] HIV RNA, QUANTITATIVE, TMAon 10-23-2022 HIV QUANTITATIVE RNA Not detected Normal [facility] Comment on above: Order Comment: The A ptima HIV Quant assay is a real-time scrip clerk-mediated amplification (TMA) test which has a dynamic [...] HIV-1 infection. Performed By: #### L [id number] ####[facility] (BEAKER)[address] [place] [address] HIV QUANTITATIVE RNA LOG Not detected Normal [facility] Comment on above: Order Comment: The A ptima HIV Quant assay is a real-time scrip clerk-mediated amplification (TMA) test which has a dynamic [...] HIV-1 infection. Performed By: #### L [id number] ####[facility] ([facility])[address] [place] [address] HIV-1 INTERPRETATION Not detected Normal Not Detected [facility] Comment on above: Order Comment: The A ptima HIV Quant assay is a real-time scrip clerk-mediated amplification (TMA) test which has a dynamic [...] HIV-1 infection. Performed By: #### L [id number] ####[facility] ([facility])[address] [place] [address] Labon 10-23-2022 Lab Normal [facility] MAGNESIUMon 10-23-2022 Magnesium [Mass/Vol] 1.8 mg/dL Low 1.9-2.7 [facility] Comment on above: Performed By: #### L [id number] ####[facility] ([facility])[address] [place] [address] PHOSPHORUSon 10-23-2022 Magnesium [Mass/Vol] 3.1 mg/dL Normal 2.5-5.0 [facility] Comment on above: Performed By: #### L [id number] ####[facility] ([facility])[address] [place] [address] TACROLIMUS LEVELon Tacrolimus (Bld) [Mass/Vol] 8.1 ng/mL Normal 5.0-20.0 [facility] Comment on above: Result Comment: The [employer] Tacrolimus assay is a delayed one-step immunoassay for the quantitative determination of tacrolimus in human whole blood using the chemiluminescent microparticle immunoassay (CMIA) technology with flexible assay protocols, referred to as Chemiflex. Performed By: #### L [id number] ####[facility] ([facility])[address] [place] [address] URIC ACIDon 10-23-2022 Magnesium [Mass/Vol] 3.7 mg/dL Normal 2.3-6.6 [facility] Comment on above: Performed By: #### L [id number] ####[facility] ([facility])[address] [place] [address] URINE CULTURE, ROUTINEon Bacteria identified Cx Nom (U) No growth at 48 hours Normal [facility] Comment on above: Performed By: #### L [id number] ####[facility] ([facility])[address] [place] [address] 36on 10-19-2022 36 Normal [facility] Telephoneon 10-19-2022 Telephone Normal [facility] BASIC METABOLIC PANELon 10-06 Anion gap [Moles/Vol] 13 mmol/L Normal 7-20 [facility] Comment on above: Performed By: #### L [id number] ####[facility] ([facility])[address] [place] [address] Calcium [Mass/Vol] 9.8 mg/dL Normal 8.6-10.3 [facility] Comment on above: Performed By: #### L [id number] ####[facility] ([facility])[address] [place] [address] Chloride [Moles/Vol] 102 mmol/L Normal 98-107 [facility] Comment on above: Performed By: #### L [id number] ####[facility] ([facility])[address] [place] [address] CO2 [Moles/Vol] 19 mmol/L Low 21-31 [facility] Comment on above: Performed By: #### L [id number] ####[facility] ([facility])[address] [place] [address] Creatinine [Mass/Vol] 2.06 mg/dL High 0.60-1.20 [facility] Comment on above: Performed By: #### L [id number] ####[facility] ([facility])[address] [place] [address] GLOMERULAR FILTRATION RATE ML/MIN/1.73 SQ M.PREDICTED 28.3 mL/min/1.73m*2 Low >60.0 [facility] Comment on above: Result Comment: The [facility]???s estimated glomerular filtration rate (eGFR) will no [...] of individuals. Performed By: #### L [id number] ####[facility] ([facility])[address] [place] [address] Glucose [Mass/Vol] 129 mg/dL High 70-100 [facility] Comment on above: Performed By: #### L [id number] ####[facility] ([facility])[address] [place] [address] Potassium [Moles/Vol] 3.9 mmol/L Normal 3.5-5.1 [facility] Comment on above: Performed By: #### L [id number] ####[facility] ([facility])[address] [place] [address] Sodium [Moles/Vol] 134 mmol/L Low 136-145 [facility] Comment on above: Performed By: #### L [id number] ####[facility] ([facility])[address] [place] [address] Urea nitrogen [Mass/Vol] 38 mg/dL High 7-25 [facility] Comment on above: Performed By: #### L [id number] ####[facility] ([facility])[address] [place] [address] UREA NITROGEN/CREATININE (MASS RATIO) IN SER/PLAS 18.45 Normal [facility] Comment on above: Performed By: #### L [id number] ####[facility] ([facility])[address] [place] [address] CBC WITH AUTO DIFFERENTIALon 10-15-2022 Basophils (Bld) [#/Vol] 0.13 10*3/uL Normal 0.00-0.20 [facility] Comment on above: Performed By: #### L [id number] ####[facility] ([facility])[address] [place] [address] Basophils/100 WBC (Bld) 1.1 % High 0.0-1.0 [facility] Comment on above: Performed By: #### L [id number] ####[facility] ([facility])[address] [place] [address] Eosinophils (Bld) [#/Vol] 0.43 10*3/uL Normal 0.00-0.50 [facility] Comment on above: Performed By: #### L [id number] ####[facility] ([facility])[address] [place] [address] Eosinophils/100 WBC (Bld) 3.7 % Normal 0.0-6.0 [facility] Comment on above: Performed By: #### L [id number] ####[facility] ([facility])[address] [place] [address] Erythrocyte distribution width (RBC) [Ratio] 13.9 % Normal 11.5-15.0 [facility] Comment on above: Performed By: #### L [id number] ####[facility] ([facility])[address] [place] [address] ERYTHROCYTE MEAN CORPUSCULAR HEMOGLOBIN CONCENTRATION (G/DL) BY AUTOMATED 32.8 g/dL Normal 32.0-35.0 [facility] Comment on above: Performed By: #### L [id number] ####[facility] ([facility])[address] [place] [address] Hematocrit (Bld) [Volume fraction] 35.1 % Low 36.0-48.0 [facility] Comment on above: Performed By: #### L [id number] ####[facility] ([facility])[address] [place] [address] Hemoglobin (Bld) [Mass/Vol] 11.5 g/dL Low 12.0-15.0 [facility] Comment on above: Performed By: #### L [id number] ####[facility] ([facility])[address] [place] [address] Immature granulocytes (Bld) [#/Vol] 0.40 10*3/uL High 0.00-0.20 [facility] Comment on above: Performed By: #### L [id number] ####[facility] ([facility])[address] [place] [address] Immature granulocytes/100 WBC (Bld) 3.5 % High 0.0-1.0 [facility] Comment on above: Performed By: #### L [id number] ####[facility] ([facility])[address] [place] [address] Lymphocytes (Bld) [#/Vol] 0.52 10*3/uL Low 1.20-4.00 [facility] Comment on above: Performed By: #### L [id number] ####[facility] ([facility])[address] [place] [address] Lymphocytes/100 WBC (Bld) 4.5 % Low 20.0-45.0 [facility] Comment on above: Performed By: #### L [id number] ####[facility] ([facility])[address] [place] [address] MCH (RBC) [Entitic mass] 30.4 pg Normal 27.0-33.0 [facility] Comment on above: Performed By: #### L [id number] ####[facility] ([facility])[address] [place] [address] MCV (RBC) [Entitic vol] 92.9 fL Normal 82.0-98.0 [facility] Comment on above: Performed By: #### L [id number] ####[facility] ([facility])[address] [place] [address] Monocytes (Bld) [#/Vol] 0.48 10*3/uL Normal 0.10-1.00 [facility] Comment on above: Performed By: #### L [id number] ####[facility] ([facility] [place] [address] Monocytes/100 WBC (Bld) 4.2 % Low 5.0-12.0 [facility] Comment on above: Performed By: #### L [id number] ####[facility] ([facility])[address] [place] [address] Neutrophils (Bld) [#/Vol] 9.56 10*3/uL High 1.60-7.60 [facility] Comment on above: Performed By: #### L [id number] ####[facility] ([facility])[address] [place] [address] Neutrophils/100 WBC (Bld) 83.0 % High 40.0-72.0 [facility] Comment on above: Performed By: #### L [id number] ####[facility] ([facility])[address] [place] [address] NRBC (PER 100 WBCS) BY AUTOMATED COUNT 0.0 % Normal 0.0-0.0 [facility] Comment on above: Performed By: #### L [id number] ####[facility] ([facility])[address] [place] [address] PLATELETS (10*3/UL) IN BLOOD AUTOMATED COUNT 419 10*3/uL High 150-400 [facility] Comment on above: Performed By: #### L [id number] ####[facility] ([facility])[address] [place] [address] RBC (Bld) [#/Vol] 3.78 10*6/uL Low 3.80-5.00 [facility] Comment on above: Performed By: #### L [id number] ####[facility] ([facility])[address] [place] [address] WBC (Bld) [#/Vol] 11.52 10*3/uL High 4.00-10.60 [facility] Comment on above: Performed By: #### L [id number] ####[facility] ([facility])[address] [place] [address] CREATININE, URINE, RANDOMon 10-15-2022 Creatinine (U) [Mass/Vol] 82.0 mg/dL Normal 26-299 [facility] Comment on above: Performed By: #### L [id number] ####[facility] ([facility])[address] [place] [address] DEVICE CULTUREon 10-15-2022 Ampicillin [Susc] 1 ug/ml Susceptible [facility] Comment on above: Performed By: #### D EVICE CULTURE ####[facility] ([facility])[address] [place] [address] Vancomycin [Susc] 2 ug/ml Susceptible [facility] Comment on above: Performed By: #### D EVICE CULTURE ####[facility] ([facility])[address] [place] [address] Follow-Upon 10-15-2022 Follow-Up Normal [facility] HEMOGLOBIN A1Con 10-15-2022 Glucose [Mass/Vol] 105.41 mg/dL Normal [facility] Comment on above: Order Comment: NO [facility]ANT Performed By: #### L [id number] ####[facility] ([facility])[address] [place] [address] HbA1c (Bld) [Mass fraction] 5.3 % Normal 4.0-6.0 [facility] Comment on above: Order Comment: NO VA RIANT Performed By: #### L [id number] ####[facility] ([facility])[address] [place] [address] HEPATIC FUNCTION PANELon Albumin [Mass/Vol] 4.6 g/dL Normal 3.5-5.7 [facility] Comment on above: Performed By: #### L [id number] ####[facility] ([facility])[address] [place] [address] ALP [Catalytic activity/Vol] 89 U/L Normal 34-104 [facility] Comment on above: Performed By: #### L [id number] ####[facility] ([facility])[address] [place] [address] ALT [Catalytic activity/Vol] 13 U/L Normal 7-52 [facility] Comment on above: Performed By: #### L [id number] ####[facility] ([facility])[address] [place] [address] AST [Catalytic activity/Vol] 12 U/L Low 13-39 [facility] Comment on above: Performed By: #### L [id number] ####[facility] ([facility])[address] [place] [address] Bilirubin [Mass/Vol] 0.4 mg/dL Normal 0.3-1.0 [facility] Comment on above: Performed By: #### L [id number] ####[facility] ([facility])[address] [place] [address] Magnesium [Mass/Vol] 0.1 mg/dL Normal 0-0.2 [facility] Comment on above: Performed By: #### L [id number] ####[facility] ([facility])[address] [place] [address] Protein [Mass/Vol] 7.4 g/dL Normal 6.0-8.3 [facility] Comment on above: Performed By: #### L [id number] ####[facility] ([facility])[address] [place] [address] LIPID PANELon 10-15-2022 CHOL/HDL 4.48 mg/dL Normal [facility] Comment on above: Performed By: #### L [id number] ####[facility] ([facility])[address] [place] [address] Cholesterol [Mass/Vol] 291 mg/dL High 120-200 [facility] Comment on above: Performed By: #### L [id number] ####[facility] ([facility])[address] [place] [address] Magnesium [Mass/Vol] 284 mg/dL High 40-149 [facility] Comment on above: Result Comment: TRIG LYCERIDE REFERENCE RANGE:20 YEARS AND OLDER CARDIOVASCULAR RISKLESS THAN 150 mg/dL LOW [id number] TO 199 mg/dL BORDERLINE [id number] mg/dL AND GREATER HIGH RISK Performed By: #### L [id number] ####[facility] ([facility])[address] [facility] [place] [address] Magnesium [Mass/Vol] 169 mg/dL High 0-160 [facility] Comment on above: Performed By: #### L [id number] ####[facility] ([facility])[address] [place] [address] Magnesium [Mass/Vol] 65 mg/dL Normal 23-92 [facility] Comment on above: Performed By: #### L [id number] ####[facility] ([facility])[address] [place] [address] NON HDL CHOL. (LDL+VLDL) 226 Normal [facility] Comment on above: Performed By: #### L [id number] ####[facility] ([facility])[address] [place] [address] TOTAL VLDL-C 57 mg/dL High 0-40 [facility] Comment on above: Performed By: #### L [id number] ####[facility] ([facility])[address] [place] [address] Labon 10-15-2022 Lab Normal [facility] MAGNESIUMon 10-15-2022 Magnesium [Mass/Vol] 1.7 mg/dL Low 1.9-2.7 [facility] Comment on above: Performed By: #### L [id number] ####[facility] ([facility])[address] [place] [address] Orders Onlyon 10-15-2022 Orders Only Normal [facility] PANEL REACTIVE ANTIBODYon HOLD SPECIMEN Hold for add-ons. Normal [facility] Comment on above: Result Comment: Auto resulted. Performed By: #### L [id number] ####[facility] ([facility])[address] [address] PHOSPHORUSon 10-15-2022 Magnesium [Mass/Vol] 3.2 mg/dL Normal 2.5-5.0 [facility] Comment on above: Performed By: #### L [id number] ####[facility] ([facility])[address] [place] [address] PROTEIN, URINE, RANDOMon Protein (U) [Mass/Vol] 48.1 mg/dL Normal [facility] Comment on above: Result Comment: Ther e are no established reference values for random urine specimens. Performed By: #### L [id number] ####[facility] ([facility])[address] [place] [address] TACROLIMUS LEVELon Tacrolimus (Bld) [Mass/Vol] 5.9 ng/mL Normal 5.0-20.0 [facility] Comment on above: Result Comment: The [employer] Tacrolimus assay is a delayed one-step immunoassay for the quantitative determination of tacrolimus in human whole blood using the chemiluminescent microparticle immunoassay (CMIA) technology with flexible assay protocols, referred to as Chemiflex. Performed By: #### L [id number] ####[facility] ([facility])[address] [place] [address] URIC ACIDon 10-15-2022 Magnesium [Mass/Vol] 4.2 mg/dL Normal 2.3-6.6 [facility] Comment on above: Performed By: #### L [id number] ####[facility] ([facility])[address] [place] [address] BASIC METABOLIC PANELon Anion gap [Moles/Vol] 11 mmol/L Normal 7-20 [facility] Comment on above: Performed By: #### L [id number] ####[facility] ([facility])[address] [place] [address] Calcium [Mass/Vol] 9.2 mg/dL Normal 8.6-10.3 [facility] Comment on above: Performed By: #### L [id number] ####[facility] ([facility])[address] [place] [address] Chloride [Moles/Vol] 104 mmol/L Normal 98-107 [facility] Comment on above: Performed By: #### L [id number] ####[facility] ([facility])[address] [place] [address] CO2 [Moles/Vol] 22 mmol/L Normal 21-31 [facility] Comment on above: Performed By: #### L [id number] ####[facility] ([facility])[address] [place] [address] Creatinine [Mass/Vol] 2.44 mg/dL High 0.60-1.20 [facility] Comment on above: Performed By: #### L [id number] ####[facility] ([facility])[address] [place] [address] GLOMERULAR FILTRATION RATE ML/MIN/1.73 SQ M.PREDICTED 23.0 mL/min/1.73m*2 Low >60.0 [facility] Comment on above: Result Comment: The [facility]???s estimated glomerular filtration rate (eGFR) will no [...] of individuals. Performed By: #### L [id number] ####[facility] ([facility])[address] [place] [address] Glucose [Mass/Vol] 99 mg/dL Normal 70-100 [facility] Comment on above: Performed By: #### L [id number] ####[facility] ([facility])[address] [place] [address] Potassium [Moles/Vol] 4.4 mmol/L Normal 3.5-5.1 [facility] Comment on above: Performed By: #### L [id number] ####[facility] ([facility])[address] [place] [address] Sodium [Moles/Vol] 137 mmol/L Normal 136-145 [facility] Comment on above: Performed By: #### L [id number] ####[facility] ([facility])[address] [place] [address] Urea nitrogen [Mass/Vol] 43 mg/dL High 7-25 [facility] Comment on above: Performed By: #### L [id number] ####[facility] ([facility])[address] [place] [address] UREA NITROGEN/CREATININE (MASS RATIO) IN SER/PLAS 17.62 Normal [facility] Comment on above: Performed By: #### L [id number] ####[facility] ([facility])[address] [place] [address] BK VIRUS, PLASMA, QUANTITATI VEon 10-08-2022 BK QUANTITATION Not detected Normal [facility] Comment on above: Result Comment: Meth od: BK virus was measured by quantitative polymerase chain reaction using a fluorescent hydrolysis probe targeting the polyomavirus BK WIRE THREADER-1 gene.The lower limit of quantitation of the assay is 500 copies of BK genome per milliliter of plasma or urine, and any detectable BK DNA below that level is reported as: Detected, <500 copies/ml. Serial BK virus measurement can be used to monitor disease activity. (Reference: Gordon chaneyl. J CLIN MICRO 2004; 42:8780-9755).This test was developed and its performance characteristics determined by the [facility]. It has not been approved by the US Food and Drug Administration. However, such approval is not required for clinical implementation, and test results have been shown to be clinically useful. This laboratory is CAP accredited and CLIA certified to perform high complexity testing. Performed By: #### L [id number] ####[facility] ([facility])[address] [place] [address] BK QUANTITATION LOG Not detected [facility] Comment on above: Performed By: #### L [id number] ####[facility] ([facility])[address] [place] [address] CBC WITH AUTO DIFFERENTIALon 10-08-2022 Basophils (Bld) [#/Vol] 0.08 10*3/uL Normal 0.00-0.20 [facility] Comment on above: Performed By: #### L [id number] ####[facility] ([facility])[address] [place] [address] Basophils/100 WBC (Bld) 0.9 % Normal 0.0-1.0 [facility] Comment on above: Performed By: #### L [id number] ####[facility] ([facility])[address] [facility] [place] [address] Eosinophils (Bld) [#/Vol] 0.27 10*3/uL Normal 0.00-0.50 [facility] Comment on above: Performed By: #### L [id number] ####[facility] ([facility])[address] [place] [address] Eosinophils/100 WBC (Bld) 3.0 % Normal 0.0-6.0 [facility] Comment on above: Performed By: #### L [id number] ####[facility] ([facility])[address] [facility] [place] [address] Erythrocyte distribution width (RBC) [Ratio] 13.8 % Normal 11.5-15.0 [facility] Comment on above: Performed By: #### L [id number] ####[facility] ([facility])[address] [facility] [place] [address] ERYTHROCYTE MEAN CORPUSCULAR HEMOGLOBIN CONCENTRATION (G/DL) BY AUTOMATED 31.4 g/dL Low 32.0-35.0 [facility] Comment on above: Performed By: #### L [id number] ####[facility] ([facility])[address] [place] [address] Hematocrit (Bld) [Volume fraction] 33.1 % Low 36.0-48.0 [facility] Comment on above: Performed By: #### L [id number] ####[facility] ([facility])[address] [place] [address] Hemoglobin (Bld) [Mass/Vol] 10.4 g/dL Low 12.0-15.0 [facility] Comment on above: Performed By: #### L [id number] ####[facility] ([facility])[address] [place] [address] Immature granulocytes (Bld) [#/Vol] 0.09 10*3/uL Normal 0.00-0.20 [facility] Comment on above: Performed By: #### L [id number] ####[facility] ([facility])[address] [place] [address] Immature granulocytes/100 WBC (Bld) 1.0 % Normal 0.0-1.0 [facility] Comment on above: Performed By: #### L [id number] ####[facility] ([facility])[address] [place] [address] Lymphocytes (Bld) [#/Vol] 0.19 10*3/uL Low 1.20-4.00 [facility] Comment on above: Performed By: #### L [id number] ####[facility] ([facility])[address] [place] [address] Lymphocytes/100 WBC (Bld) 2.1 % Low 20.0-45.0 [facility] Comment on above: Performed By: #### L [id number] ####[facility] ([facility])[address] [place] [address] MCH (RBC) [Entitic mass] 30.1 pg Normal 27.0-33.0 [facility] Comment on above: Performed By: #### L [id number] ####[facility] ([facility])[address] [place] [address] MCV (RBC) [Entitic vol] 95.9 fL Normal 82.0-98.0 [facility] Comment on above: Performed By: #### L [id number] ####[facility] ([facility])[address] [place] [address] Monocytes (Bld) [#/Vol] 0.41 10*3/uL Normal 0.10-1.00 [facility] Comment on above: Performed By: #### L [id number] ####[facility] ([facility])[address] [place] [address] Monocytes/100 WBC (Bld) 4.5 % Low 5.0-12.0 [facility] Comment on above: Performed By: #### L [id number] ####[facility] ([facility])[address] [place] [address] Neutrophils (Bld) [#/Vol] 8.06 10*3/uL High 1.60-7.60 [facility] Comment on above: Performed By: #### L [id number] ####[facility] ([facility])[address] [place] [address] Neutrophils/100 WBC (Bld) 88.5 % High 40.0-72.0 [facility] Comment on above: Performed By: #### L [id number] ####[facility] ([facility])[address] [place] [address] NRBC (PER 100 WBCS) BY AUTOMATED COUNT 0.0 % Normal 0.0-0.0 [facility] Comment on above: Performed By: #### L [id number] ####[facility] ([facility])[address] [place] [address] PLATELETS (10*3/UL) IN BLOOD AUTOMATED COUNT 302 10*3/uL Normal 150-400 [facility] Comment on above: Performed By: #### L [id number] ####[facility] ([facility])[address] [place] [address] RBC (Bld) [#/Vol] 3.45 10*6/uL Low 3.80-5.00 [facility] Comment on above: Performed By: #### L [id number] ####[facility] ([facility])[address] [place] [address] WBC (Bld) [#/Vol] 9.10 10*3/uL Normal 4.00-10.60 [facility] Comment on above: Performed By: #### L [id number] ####[facility] ([facility])[address] [place] [address] HEMOGLOBIN A1Con 10-08-2022 Glucose [Mass/Vol] 111.15 mg/dL Normal [facility] Comment on above: Performed By: #### L [id number] ####[facility] ([facility])[address] [place] [address] HbA1c (Bld) [Mass fraction] 5.5 % Normal 4.0-6.0 [facility] Comment on above: Performed By: #### L [id number] ####[facility] ([facility])[address] [place] [address] HEPATIC FUNCTION PANELon Albumin [Mass/Vol] 4.3 g/dL Normal 3.5-5.7 [facility] Comment on above: Performed By: #### L [id number] ####[facility] ([facility])[address] [place] [address] ALP [Catalytic activity/Vol] 77 U/L Normal 34-104 [facility] Comment on above: Performed By: #### L [id number] ####[facility] ([facility])[address] [place] [address] ALT [Catalytic activity/Vol] 13 U/L Normal 7-52 [facility] Comment on above: Performed By: #### L [id number] ####[facility] ([facility])[address] [place] [address] AST [Catalytic activity/Vol] 12 U/L Low 13-39 [facility] Comment on above: Performed By: #### L [id number] ####[facility] ([facility])[address] [place] [address] Bilirubin [Mass/Vol] 0.3 mg/dL Normal 0.3-1.0 [facility] Comment on above: Performed By: #### L [id number] ####[facility] ([facility])[address] [place] [address] Magnesium [Mass/Vol] 0.0 mg/dL Normal 0-0.2 [facility] Comment on above: Performed By: #### L [id number] ####[facility] ([facility])[address] [place] [address] Protein [Mass/Vol] 6.9 g/dL Normal 6.0-8.3 [facility] Comment on above: Performed By: #### L [id number] ####[facility] ([facility])[address] [place] [address] LIPID PANELon 10-08-2022 CHOL/HDL 5.22 mg/dL Normal [facility] Comment on above: Performed By: #### L [id number] ####[facility] ([facility])[address] [place] [address] Cholesterol [Mass/Vol] 256 mg/dL High 120-200 [facility] Comment on above: Performed By: #### L [id number] ####[facility] ([facility] [facility])[address] [place] [address] Magnesium [Mass/Vol] 373 mg/dL High 40-149 [facility] Comment on above: Result Comment: TRIG LYCERIDE REFERENCE RANGE:20 YEARS AND OLDER CARDIOVASCULAR RISKLESS THAN 150 mg/dL LOW [id number] TO 199 mg/dL BORDERLINE PCAI136 mg/dL AND GREATER HIGH RISK Performed By: #### L [id number] ####[facility] ([facility])[address] [place] [address] Magnesium [Mass/Vol] 132 mg/dL Normal 0-160 [facility] Comment on above: Performed By: #### L [id number] ####[facility] ([facility])[address] [place] [address] Magnesium [Mass/Vol] 49 mg/dL Normal 23-92 [facility] Comment on above: Performed By: #### L [id number] ####[facility] ([facility])[address] [place] [address] NON HDL CHOL. (LDL+VLDL) 207 Normal [facility] Comment on above: Performed By: #### L [id number] ####[facility] ([facility])[address] [place] [address] TOTAL VLDL-C 75 mg/dL High 0-40 [facility] Comment on above: Performed By: #### L [id number] ####[facility] ([facility])[address] [place] [address] Labon 10-08-2022 Lab Normal [facility] MAGNESIUMon 10-08-2022 Magnesium [Mass/Vol] 1.7 mg/dL Low 1.9-2.7 [facility] Comment on above: Performed By: #### L [id number] ####[facility] ([facility])[address] [place] [address] [facility]ST PROSPERAon 10-08-2022 PROSPERA RESULT Results to be mailed directly to physician's office by reference lab. [facility] Comment on above: Performed By: #### L [id number] ####[facility], PHOSPHORUSon 10-08-2022 Magnesium [Mass/Vol] 4.5 mg/dL Normal 2.5-5.0 [facility] Comment on above: Performed By: #### L [id number] ####[facility] ([facility])[address] [place] [address] SINGLE ANTIGEN CLASS Ion AB SCREEN COMMENTS No Class I donor spe cific antibody identified Normal [facility] Comment on above: Performed By: #### L [id number] ####[facility] TISSUE TYPING (HISTOTRAC)[address] CLASS I TESTED DATE [id number] Normal [facility] Comment on above: Performed By: #### L [id number] ####[facility] TISSUE TYPING (HISTOTRAC)[address] SINGLE ANTIGEN CLASS 1 TEST METHOD Class I Single Antigen Normal [facility] Comment on above: Performed By: #### L [id number] ####[facility] TISSUE TYPING (HISTOTRAC)[address] SINGLE ANTIGEN CLASS IIon AB SCREEN COMMENTS No Class II donor specific antibody identified Normal [facility] Comment on above: Performed By: #### L [id number] ####[facility] TISSUE TYPING (HISTOTRAC)[address] CLASS II TESTED DATE [id number] [facility] Comment on above: Performed By: #### L [id number] ####[facility] TISSUE TYPING (HISTOTRAC)[address] SIGNED BY Signed by Sree escamilla CHT([facility]) PARKER(ASCP), Waste Picker Transplant Immunology [facility] Comment on above: Performed By: #### L [id number] ####[facility] TISSUE TYPING (HISTOTRAC)[address] Result Comment: Clas s I Antigen Microbeads Performed By: #### L [id number] ####[facility] TISSUE TYPING (HISTOTRAC)[address] SINGLE ANTIGEN CLASS 2 TEST METHOD Class II Single Antigen Normal [facility] Comment on above: Result Comment: Clas s II Antigen Microbeads Performed By: #### L [id number] ####[facility] TISSUE TYPING (HISTOTRAC)[address] TACROLIMUS LEVELon Tacrolimus (Bld) [Mass/Vol] 5.6 ng/mL Normal 5.0-20.0 [facility] Comment on above: Result Comment: The [employer] Tacrolimus assay is a delayed one-step immunoassay for the quantitative determination of tacrolimus in human whole blood using the chemiluminescent microparticle immunoassay (CMIA) technology with flexible assay protocols, referred to as Chemiflex. Performed By: #### L [id number] ####[facility] ([facility]AKER)[address] [place] [address] URIC ACIDon 10-08-2022 Magnesium [Mass/Vol] 3.9 mg/dL Normal 2.3-6.6 [facility] Comment on above: Performed By: #### L [id number] ####[facility] ([facility])[address] [place] [address] URINE CULTURE, ROUTINEon Bacteria identified Cx Nom (U) <10,000 CFU/ML No Significant Growth [facility] Comment on above: Performed By: #### L [id number] ####[facility] ([facility])[address] [place] [address] 36on 10-07-2022 36 Normal [facility] PTH INTACTon 07-30-2022 PTH, Intact 107 pg/mL Critically high 15-65 [facility] Comment on above: Performed By: #### M JUDIE Snow, RENAL #### [facility] [address] [place] [address] Dr. Hari Palmer FERRITINon 07-29-2022 Ferritin [Mass/Vol] 194.0 ng/mL Critically high 6.2-137.0 [facility] Comment on above: Performed By: #### M JUDIE Snow, RENAL #### [facility] [address] [address] [address] Hari Palmer HEMOGRAM AND PLATELon 2021 Hematocrit (Bld) [Volume fraction] 32.8 % Critically low 36.0-48.0 [facility] Comment on above: Performed By: #### M JUDIE Snow, RENAL #### [facility] [address] [place] [address] Dr. Hari Palmer Hemoglobin (Bld) [Mass/Vol] 10.8 g/dL Critically low 12.0-16.0 [facility] Comment on above: Performed By: #### M G, URIC, RENAL #### [facility] [address] [address] [address] Hari Palmer MCH (RBC) [Entitic mass] 31.7 pg Normal 26.7-34.0 [facility] Comment on above: Performed By: #### M G, URIC, RENAL #### [facility] [address] [place] [address] Dr. Hari Palmer MCHC (RBC) [Mass/Vol] 32.9 g/dL Normal 29.9-35.2 [facility] Comment on above: Performed By: #### M G, URIC, RENAL #### [facility] [address] [place] [address] Dr. Hari Palmer MCV (RBC) [Entitic vol] 96.2 fL Normal 81.0-99.0 [facility] Comment on above: Performed By: #### M G, URIC, RENAL #### [facility] [address] [place] [address] Dr. Hari Palmer PLT 297 103/ul Normal 150-450 [facility] Comment on above: Performed By: #### M G, URIC, RENAL #### [facility] [address] [place] [address] Dr. Hari Palmer RBC 3.41 106/ul Critically low 4.20-5.40 [facility] Comment on above: Performed By: #### M G, URIC, RENAL #### [facility] [address] [place] [address] Dr. Hari Palmer WBC 7.1 103/ul Normal 4.0-11.0 [facility] Comment on above: Performed By: #### M G, URIC, RENAL #### [facility] [address] [place] [address] Dr. Hari Palmer IRON AND TIBCon 07-29-2022 % SATURATION 19.0 % Normal [facility] Comment on above: Performed By: #### M G, URIC, RENAL #### [facility] [address] [place] [address] Dr. Hari Palmer Iron [Mass/Vol] 48.0 ug/dL Critically low 50.0-170.0 [facility] Comment on above: Performed By: #### M G, URIC, RENAL #### [facility] [address] [place] [address] Dr. Hari Palmer TIBC DIRECT 252.0 ug/dL Normal 250.0-450.0 [facility] Comment on above: Performed By: #### M G, URIC, RENAL #### [facility] [address] [place] [address] Dr. Hari Palmer MAGNESIUMon 07-29-2022 Magnesium [Mass/Vol] 2.0 mg/dL Normal 1.8-2.4 [facility] Comment on above: Performed By: #### M G, URIC, RENAL #### [facility] [address] [place] [address] Dr. Hari Palmer RENAL FUNCTION PANELon 07-29 Albumin [Mass/Vol] 3.6 g/dL Normal 3.4-5.0 [facility] Comment on above: Performed By: #### M G, URIC, RENAL #### [facility] [address] [place] [address] Dr. Hari Palmer Calcium [Mass/Vol] 8.7 mg/dL Normal 8.5-10.1 [facility] Comment on above: Performed By: #### M G, URIC, RENAL #### [facility] [address] [place] [address] Dr. Hari Palmer Chloride [Moles/Vol] 104 mmol/L Normal 98-107 [facility] Comment on above: Performed By: #### M G, URIC, RENAL #### [facility] [address] [place] [address] Dr. Hari Palmer CO2 [Moles/Vol] 21.8 mmol/L Normal 21.0-32.0 [facility] Comment on above: Performed By: #### M G, URIC, RENAL #### [facility] [address] [place] [address] Dr. Hari Palmer Creatinine [Mass/Vol] 3.83 mg/dL Critically high 0.55-1.02 [facility] Comment on above: Performed By: #### M G, URIC, RENAL #### [facility] [address] [address] [address] Hari Palmer EGFR-AF VIET[place]ESE 15 mL/min/1.73m2 Critically low >=60 [facility] Comment on above: Performed By: #### M G, URIC, RENAL #### [facility] [address] [place] [address] Dr. Hari Palmer EGFR-NON AF VIET[place]ESE 13 mL/min/1.73m2 Critically low >=60 [facility] Comment on above: Performed By: #### M G, URIC, RENAL #### [facility] [address] [place] [address] Dr. Hari Palmer Glucose [Mass/Vol] 108 mg/dL Critically high 74-106 [facility] Comment on above: Performed By: #### M G, URIC, RENAL #### [facility] [address] [place] [address] Dr. Hari Palmer Phosphate [Mass/Vol] 5.4 mg/dL Critically high 2.6-4.7 [facility] Comment on above: Performed By: #### M G, URIC, RENAL #### [facility] [address] [place] [address] Dr. Hari Palmer Potassium [Moles/Vol] 3.9 mmol/L Normal 3.5-5.1 [facility] Comment on above: Performed By: #### M G, URIC, RENAL #### [facility] [address] [place] [address] Dr. Hari Palmer Sodium [Moles/Vol] 137 mmol/L Normal 136-145 [facility] Comment on above: Performed By: #### M G, URIC, RENAL #### [facility] [address] [place] [address] Dr. Hari Palmer Urea nitrogen [Mass/Vol] 47.0 mg/dL Critically high 7.0-18.0 [facility] Comment on above: Performed By: #### M G, URIC, RENAL #### [facility] [address] [place] [address] Dr. Hari Palmer URIC ACID SERUMon 07-29-2022 Urate [Mass/Vol] 6.3 mg/dL Critically high 2.6-6.0 [facility] Comment on above: Performed By: #### M G, URIC, RENAL #### [facility] [address] [address] [address] Hari Palmer URINE T PROTEIN CREAT RATIOo n 07-29-2022 Protein (U) [Mass/Vol] 29.7 mg/dL Critically high <=12.0 [facility] Comment on above: Performed By: #### M Edy, URIC, RENAL #### [facility] [address] [address] [address] Hari Palmer UR PROT CREAT RAT 0.56 Normal [facility] Comment on above: Performed By: #### M Edy, URIC, RENAL #### [facility] [address] [address] [address] Hari Palmer URINE CREAT 53.35 mg/dL Normal 20.00-300.00 [facility] Comment on above: Performed By: #### M Edy, URIC, RENAL #### [facility] [address] [address] [address] Hari Palmer VITAMIN D 25 OHon 07-29-2022 VIT D 25-OH 38.8 ng/mL Normal [facility] Comment on above: Performed By: #### M Edy, URIC, RENAL #### [facility] [address] [address] [address] Hari Palmer VIT D RANGES SEE BELOW Normal [facility] Comment on above: Result Comment: <20 ng/mL Vit D deficient 20 - <30 ng/mL Vit D insufficient 30 - 100 ng/mL Vit D sufficient >100 ng/mL Potential Toxicity Performed By: #### M Edy, URIC, RENAL #### [facility] [address] [address] [address] Hari Palmer Albumin [Mass/volume] in Ser um or PlasmaOrdered By: Stanley Forman on 06-20-2022 Albumin [Mass/Vol] 3.9 g/dL 3.2-5.5 [facility] Basophils Auto (Bld) [#/Vol] Ordered By: Stanley Forman on 06-20-2022 Basophils (Bld) [#/Vol] 0.1 10*3/uL 0.0-0.2 [facility] Basophils/100 WBC Auto (Bld) Ordered By: Stanley Forman on 06-20-2022 Basophils/100 WBC (Bld) 0.7 % . [facility] Blood hemoglobin measurement (mass/volume)Ordered By: Stanley Forman on 06-20-2022 Hemoglobin (Bld) [Mass/Vol] 10.8 g/dL 11.8-15.4 [facility] Blood leukocytes automated c ount (number/volume)Ordered By: Stanley Forman on 06-20-2022 WBC (Bld) [#/Vol] 11.8 10*3/uL 4.5-11.0 [facility] C reactive protein [Mass/vol ume] in Serum or PlasmaOrdered By: Stanley Forman on 06-20-2022 CRP [Mass/Vol] 5.2 mg/dL 0.0-1.0 [facility] Creatinine and Glomerular fi ltration rate.predicted panel (S/P/Bld)Ordered By: Stanley Forman on 06-20-2022 Creatinine [Mass/Vol] 4.49 mg/dL 0.44-1.03 [facility] Eosinophils Auto (Bld) [#/Vo l]Ordered By: Stanley Forman on 06-20-2022 Eosinophils (Bld) [#/Vol] 0.4 10*3/uL 0.0-0.45 [facility] Eosinophils/100 WBC Auto (Bl d)Ordered By: Stanley Forman on 06-20-2022 Eosinophils/100 WBC (Bld) 3.2 % . [facility] Erythrocyte distribution wid th Auto (RBC) [Ratio]Ordered By: Stanley Forman on 06-20-2022 Erythrocyte distribution width (RBC) [Ratio] 14.0 % 11.9-15.3 [facility] Erythrocyte sedimentation ra te by Photometric methodOrdered By: Stanley Forman on 06-20-2022 ESR Photometric method (Bld) [Velocity] 67 mm/hr 0-19 [facility] Estimated glomerular filtrat ion rate (GFR) non- AmericanOrdered By: Stanley Forman on 06-20-2022 GFR/1.73 sq M.predicted among non-blacks MDRD (S/P/Bld) [Vol rate/Area] 11 mL/Min [facility] Globulin Calc (S) [Mass/Vol] Ordered By: Stanley Forman on 06-20-2022 Globulin (S) [Mass/Vol] 3.5 g/dL [facility] Hematocrit Auto (Bld) [Volum e fraction]Ordered By: Stanley Forman on 06-20-2022 Hematocrit (Bld) [Volume fraction] 33.1 % 34.0-46.4 [facility] Laboratory - Hematology and Cell countsOrdered By: Stanley Forman on 06-20-2022 Nucleated RBC/100 WBC (Bld) [Ratio] 0.0 % 0-0.5 [facility] Lymphocytes Auto (Bld) [#/Vo l]Ordered By: Stanley Forman on 06-20-2022 Lymphocytes (Bld) [#/Vol] 1.5 10*3/uL 1.00-4.8 [facility] Lymphocytes/100 WBC Auto (Bl d)Ordered By: Stanley Forman on 06-20-2022 Lymphocytes/100 WBC (Bld) 12.3 % . [facility] MCH Auto (RBC) [Entitic mass ]Ordered By: Stanley Forman on 06-20-2022 MCH (RBC) [Entitic mass] 31.1 pg 24.7-34.3 [facility] MCHC Auto (RBC) [Mass/Vol]Or dered By: Stanley Forman on 06-20-2022 MCHC (RBC) [Mass/Vol] 32.5 g/dL 32.0-35.0 [facility] MCV Auto (RBC) [Entitic vol] Ordered By: Stanley Forman on 06-20-2022 MCV (RBC) [Entitic vol] 95.6 fL 80-100 [facility] Monocytes Auto (Bld) [#/Vol] Ordered By: Stanley Forman on 06-20-2022 Monocytes (Bld) [#/Vol] 0.5 10*3/uL 0.0-0.8 [facility] Monocytes/100 WBC Auto (Bld) Ordered By: Stanley Forman on 06-20-2022 Monocytes/100 WBC (Bld) 4.1 % . [facility] Neutrophils Auto (Bld) [#/Vo l]Ordered By: Stanley Forman on 06-20-2022 Neutrophils (Bld) [#/Vol] 9.4 10*3/uL 1.8-7.7 [facility] Neutrophils/100 WBC Auto (Bl d)Ordered By: Stanley Forman on 06-20-2022 Neutrophils/100 WBC (Bld) 79.7 % . [facility] No Panel InformationOrdered By: Stanley Forman on 06-20-2022 Estimated GFR () 13 mL/Min [facility] Comment on above: GFR estimated refere nce range: According to KDOQI guidelines, <60 ml/min/1.73m2 is sufficient to diagnose a patient with chronic kidney disease. Pharmacy Creatinine Clearance (Chem 16.48 [facility] Platelet mean volume Auto (B ld) [Entitic vol]Ordered By: Stanley Forman on 06-20-2022 Platelet mean volume (Bld) [Entitic vol] 7.0 fL 6.3-10.7 [facility] Platelets Auto (Bld) [#/Vol] Ordered By: Stanley Forman on 06-20-2022 Platelets (Bld) [#/Vol] 287 10*3/uL 150-450 [facility] Protein [Mass/volume] in Ser um or PlasmaOrdered By: Stanley Forman on 06-20-2022 Protein [Mass/Vol] 7.4 g/dL 6.1-7.9 [facility] RBC Auto (Bld) [#/Vol]Ordere d By: Stanley Forman on 06-20-2022 RBC (Bld) [#/Vol] 3.46 10*6/uL 3.60-5.00 [facility] Serum or plasma alanine cesar otransferase measurement without P-5'-P (enzymatic activiOrdered By: Stanley Forman on 06-20-2022 ALT No additional P-5'-P [Catalytic activity/Vol] 11 U/L 10-60 [facility] Serum or plasma albumin/glob ulin mass ratioOrdered By: Stanley Forman on 06-20-2022 Albumin/Globulin [Mass ratio] 1.1 {ratio} [facility] Serum or plasma alkaline gina sphatase measurement (enzymatic activity/volume)Ordered By: Stanley Forman on 06-20-2022 ALP [Catalytic activity/Vol] 82 U/L 32-92 [facility] Serum or plasma anion gap de terminationOrdered By: Stanley Forman on 06-20-2022 Anion gap [Moles/Vol] 16.2 mmol/L 6.0-15.0 [facility] Serum or plasma aspartate am inotransferase measurement (enzymatic activity/volume)Ordered By: Stanley Forman on 06-20-2022 AST [Catalytic activity/Vol] 15 U/L 10-42 [facility] Serum or plasma calcium ge urement (mass/volume)Ordered By: Stanley Forman on 06-20-2022 Calcium [Mass/Vol] 9.3 mg/dL 8.2-10.2 [facility] Serum or plasma chloride lee surement (moles/volume)Ordered By: Stanley Forman on 06-20-2022 Chloride [Moles/Vol] 103 mmol/L 95-114 [facility] Serum or plasma glucose ge urement (mass/volume)Ordered By: Stanley Forman on 06-20-2022 Glucose [Mass/Vol] 75 mg/dL 70-100 [facility] Comment on above: ADA recommended refe rence rangeRandom Glucose Reference Range is dependent on time and content of last meal. Glucose of more than 200 mg/dL in a nonstressed, ambulatory subject supports the diagnosis of Diabetes Mellitus. Serum or plasma potassium me asurement (moles/volume)Ordered By: Stanley Forman on 06-20-2022 Potassium [Moles/Vol] 4.3 mmol/L 3.5-5.1 [facility] Serum or plasma sodium measu rement (moles/volume)Ordered By: Stanley Forman 06-20-2022 Sodium [Moles/Vol] 135 mmol/L 136-146 [facility] Serum or plasma total biliru bin measurement (mass/volume)Ordered By: Stanley Forman 06-20-2022 Bilirubin [Mass/Vol] 0.3 mg/dL 0.3-1.2 [facility] Serum or plasma total carbon dioxide measurement (moles/volume)Ordered By: Stanley Forman on 06-20-2022 CO2 [Moles/Vol] 20.1 mmol/L 22.0-30.0 [facility] Serum or plasma urea nitroge n measurement (mass/volume)Ordered By: Stanley Forman on 06-20-2022 Urea nitrogen [Mass/Vol] 42 mg/dL 9-23 [facility] COVID-19 Positive/NegativeOr dered By: Jesus Parham on 06-14-2022 SARS-CoV-2 (COVID-19) N gene AMBERLY+probe Ql (Resp) Negative Negative [facility] Comment on above: Testing for SARS-CoV -2 by RT-PCR This test was developed and its performance characteristics determined by [employer] (Innography) and validated at the [facility]. This test has not been FDA cleared [...] developed and its performance characteristics determined by [employer] (BD) and validated at the [facility]. This test has not been FDA cleared [...] Antigen (CA) 125 10.8 U/mL Normal 0.0-38.1 [facility] Comment on above: Result Comment: [employer] Electrochemiluminescence Immunoassay (ECLIA) . Values obtained with different assay methods or kits cannot be used interchangeably. Results cannot be interpreted as absolute evidence of the presence or absence of malignant disease. Performed By: #### M G, URIC, RENAL #### [facility] [address] [address] [address] Hari Palmer CEAon 06-08-2022 CEA 0.9 ng/mL Normal 0.0-4.7 [facility] Comment on above: Result Comment: Nons mokers <3.9 Smokers <5.6 . [employer] Electrochemiluminescence Immunoassay (ECLIA) . Values obtained with different assay methods or kits cannot be used interchangeably. Results cannot be interpreted as absolute evidence of the presence or absence of malignant disease. Performed By: #### C EA. #### [facility] [address] [address] [address] Hari Palmer Basophils Auto (Bld) [#/Vol] Ordered By: Jesus Parham on 06-05-2022 Basophils (Bld) [#/Vol] 0.0 10*3/uL 0.0-0.2 [facility] Basophils/100 WBC Auto (Bld) Ordered By: Jesus Parham on 06-05-2022 Basophils/100 WBC (Bld) 0.3 % . [facility] Blood hemoglobin measurement (mass/volume)Ordered By: Jesus Parham on 06-05-2022 Hemoglobin (Bld) [Mass/Vol] 12.0 g/dL 11.8-15.4 [facility] Blood leukocytes automated c ount (number/volume)Ordered By: Jesus Parham on 06-05-2022 WBC (Bld) [#/Vol] 8.5 10*3/uL 4.5-11.0 [facility] Creatinine and Glomerular fi ltration rate.predicted panel (S/P/Bld)Ordered By: Jesus Parham on 06-05-2022 Creatinine [Mass/Vol] 3.52 mg/dL 0.44-1.03 [facility] Eosinophils Auto (Bld) [#/Vo l]Ordered By: Jesus Parham on 06-05-2022 Eosinophils (Bld) [#/Vol] 0.2 10*3/uL 0.0-0.45 [facility] Eosinophils/100 WBC Auto (Bl d)Ordered By: Jesus Parham on 06-05-2022 Eosinophils/100 WBC (Bld) 2.7 % . [facility] Erythrocyte distribution wid th Auto (RBC) [Ratio]Ordered By: Jesus Parham on 06-05-2022 Erythrocyte distribution width (RBC) [Ratio] 14.2 % 11.9-15.3 [facility] Estimated glomerular filtrat ion rate (GFR) non- AmericanOrdered By: Jesus Parham on 06-05-2022 GFR/1.73 sq M.predicted among non-blacks MDRD (S/P/Bld) [Vol rate/Area] 14 mL/Min [facility] Hematocrit Auto (Bld) [Volum e fraction]Ordered By: Jesus Parham on 06-05-2022 Hematocrit (Bld) [Volume fraction] 35.8 % 34.0-46.4 [facility] Laboratory - Hematology and Cell countsOrdered By: Jesus Parham on 06-05-2022 Nucleated RBC/100 WBC (Bld) [Ratio] 0.1 % 0-0.5 [facility] Lymphocytes Auto (Bld) [#/Vo l]Ordered By: Jesus Parham on 06-05-2022 Lymphocytes (Bld) [#/Vol] 1.6 10*3/uL 1.00-4.8 [facility] Lymphocytes/100 WBC Auto (Bl d)Ordered By: Jesus Parham on 06-05-2022 Lymphocytes/100 WBC (Bld) 19.3 % . [facility] MCH Auto (RBC) [Entitic mass ]Ordered By: Jesus Parham on 06-05-2022 MCH (RBC) [Entitic mass] 31.5 pg 24.7-34.3 [facility] MCHC Auto (RBC) [Mass/Vol]Or dered By: Jesus Parham on 06-05-2022 MCHC (RBC) [Mass/Vol] 33.3 g/dL 32.0-35.0 [facility] MCV Auto (RBC) [Entitic vol] Ordered By: Jesus Parham on 06-05-2022 MCV (RBC) [Entitic vol] 94.4 fL 80-100 [facility] Monocytes Auto (Bld) [#/Vol] Ordered By: Jesus Parham on 06-05-2022 Monocytes (Bld) [#/Vol] 0.3 10*3/uL 0.0-0.8 [facility] Monocytes/100 WBC Auto (Bld) Ordered By: Jesus Parham on 06-05-2022 Monocytes/100 WBC (Bld) 3.9 % . [facility] Neutrophils Auto (Bld) [#/Vo l]Ordered By: Jesus Parham on 06-05-2022 Neutrophils (Bld) [#/Vol] 6.2 10*3/uL 1.8-7.7 [facility] Neutrophils/100 WBC Auto (Bl d)Ordered By: Jesus Parham on 06-05-2022 Neutrophils/100 WBC (Bld) 73.8 % . [facility] No Panel InformationOrdered By: Jesus Parham on 06-05-2022 Estimated GFR () 17 mL/Min [facility] Comment on above: GFR estimated refere nce range: According to KDOQI guidelines, <60 ml/min/1.73m2 is sufficient to diagnose a patient with chronic kidney disease. Pharmacy Creatinine Clearance (Chem N/A [facility] Platelet mean volume Auto (B ld) [Entitic vol]Ordered By: Jesus Parham on 06-05-2022 Platelet mean volume (Bld) [Entitic vol] 7.3 fL 6.3-10.7 [facility] Platelets Auto (Bld) [#/Vol] Ordered By: Jesus Parham on 06-05-2022 Platelets (Bld) [#/Vol] 312 10*3/uL 150-450 [facility] RBC Auto (Bld) [#/Vol]Ordere d By: Jesus Parham on 06-05-2022 RBC (Bld) [#/Vol] 3.80 10*6/uL 3.60-5.00 [facility] Serum or plasma anion gap de terminationOrdered By: Jesus Parham on 06-05-2022 Anion gap [Moles/Vol] 15.1 mmol/L 6.0-15.0 [facility] Serum or plasma calcium ge urement (mass/volume)Ordered By: Jesus Parham on 06-05-2022 Calcium [Mass/Vol] 9.5 mg/dL 8.2-10.2 [facility] Serum or plasma chloride lee surement (moles/volume)Ordered By: Jesus Parham on 06-05-2022 Chloride [Moles/Vol] 106 mmol/L 95-114 [facility] Serum or plasma glucose ge urement (mass/volume)Ordered By: Jesus Parham on 06-05-2022 Glucose [Mass/Vol] 91 mg/dL 70-100 [facility] Comment on above: ADA recommended [...] on 06-05-2022 Potassium [Moles/Vol] 4.4 mmol/L 3.5-5.1 [facility] Serum or plasma sodium measu rement (moles/volume)Ordered By: Jesus Praham on 06-05-2022 Sodium [Moles/Vol] 137 mmol/L 136-146 [facility] Serum or plasma total carbon dioxide measurement (moles/volume)Ordered By: Jesus Parham on 06-05-2022 CO2 [Moles/Vol] 20.3 mmol/L 22.0-30.0 [facility] Serum or plasma urea nitroge n measurement (mass/volume)Ordered By: Jseus Parham on 06-05-2022 Urea nitrogen [Mass/Vol] 38 mg/dL 9-23 [facility] PTH INTACTon 04-29-2022 PTH, Intact 191 pg/mL Critically high 15-65 [facility] Comment on above: Performed By: #### M Edy URIC, RENAL #### [facility] [address] [address] [address] Hari Palmer VIT D 25-OH LABCORPon 2021 Vitamin D, 25-Hydroxy 33.6 ng/mL Normal 30.0-100.0 [facility] Comment on above: Result Comment: Ning min D deficiency has been defined by the [place] of Medicine and an Endocrine Society practice guideline as a level of serum 25-OH vitamin D less than 20 ng/mL (1,2). The Endocrine Society went on to further define vitamin D insufficiency as a level between 21 and 29 ng/mL (2). 1. IOM ([place] of Medicine). 2010. Dietary reference intakes for calcium and D. [place]: The National Academies Press. 2. Chantel STEINER, Landen BURGOS, Eliseo STEPHENS, et al. Evaluation, treatment, and prevention of vitamin D deficiency: an Endocrine Society clinical practice guideline. JCEM. 2010; 96(7):1911-30. Performed By: #### M Edy URIC, RENAL #### [facility] [address], [place] [address] Dr. Hari Palmer ABO AND RH TYPEon 04-27-2022 ABO and Rh group Nom (Bld) ABO Rh Typing O Rh Positive Normal [facility] Comment on above: Performed By: #### M Edy URIC, RENAL #### [facility] [address], [place] [address] Dr. Hari Palmer FERRITINon 04-27-2022 Ferritin [Mass/Vol] 273.0 ng/mL Critically high 6.2-137.0 [facility] Comment on above: Performed By: #### M G, URIC, RENAL #### [facility] [address] [place] [address] Dr. Hari Palmer HEMOGRAM AND PLATELon 2021 Hematocrit (Bld) [Volume fraction] 33.9 % Critically low 36.0-48.0 [facility] Comment on above: Performed By: #### M G, URIC, RENAL #### [facility] [address] [place] [address] Dr. Hari Palmer Hemoglobin (Bld) [Mass/Vol] 11.4 g/dL Critically low 12.0-16.0 [facility] Comment on above: Performed By: #### M G, URIC, RENAL #### [facility] [address] [place] [address] Dr. Hari Palmer MCH (RBC) [Entitic mass] 31.7 pg Normal 26.7-34.0 [facility] Comment on above: Performed By: #### M G, URIC, RENAL #### [facility] [address] [place] [address] Dr. Hari Palmer MCHC (RBC) [Mass/Vol] 33.6 g/dL Normal 29.9-35.2 [facility] Comment on above: Performed By: #### M G, URIC, RENAL #### [facility] [address] [place] [address] Dr. Hari Palmer MCV (RBC) [Entitic vol] 94.2 fL Normal 81.0-99.0 [facility] Comment on above: Performed By: #### M G, URIC, RENAL #### [facility] [address] [place] [address] Dr. Hari Palmer PLT 333 103/ul Normal 150-450 [facility] Comment on above: Performed By: #### M G, URIC, RENAL #### [facility] [address] [place] [address] Dr. Hari Palmer RBC 3.60 106/ul Critically low 4.20-5.40 [facility] Comment on above: Performed By: #### M G, URIC, RENAL #### [facility] [address] [place] [address] Dr. Hari Palmer WBC 9.7 103/ul Normal 4.0-11.0 [facility] Comment on above: Performed By: #### M G, URIC, RENAL #### [facility] [address] [place] [address] Dr. Hari Palmer IRON AND TIBCon 04-27-2022 % SATURATION 20.1 % Normal [facility] Comment on above: Performed By: #### M G, URIC, RENAL #### [facility] [address] [place] [address] Dr. Hari Palmer Iron [Mass/Vol] 57.0 ug/dL Normal 50.0-170.0 [facility] Comment on above: Performed By: #### M G, URIC, RENAL #### [facility] [address] [place] [address] Dr. Hari Palmer TIBC DIRECT 283.0 ug/dL Normal 250.0-450.0 [facility] Comment on above: Performed By: #### M G, URIC, RENAL #### [facility] [address] [place] [address] Dr. Hari Palmer MAGNESIUMon 04-27-2022 Magnesium [Mass/Vol] 2.1 mg/dL Normal 1.8-2.4 [facility] Comment on above: Performed By: #### R ENAL, URIC, MG #### [facility] [address] [place] [address] Dr. Hari Palmer RENAL FUNCTION PANELon 04-27 Albumin [Mass/Vol] 3.6 g/dL Normal 3.4-5.0 [facility] Comment on above: Performed By: #### R ENAL, URIC, MG #### [facility] [address] [place] [address] Dr. Hari Palmer Calcium [Mass/Vol] 9.0 mg/dL Normal 8.5-10.1 [facility] Comment on above: Performed By: #### R ENAL, URIC, MG #### [facility] [address] [place] [address] Dr. Hari Palmer Chloride [Moles/Vol] 104 mmol/L Normal 98-107 [facility] Comment on above: Performed By: #### R ENAL, URIC, MG #### [facility] [address] [address] [address] Hari Palmer CO2 [Moles/Vol] 23.0 mmol/L Normal 21.0-32.0 [facility] Comment on above: Performed By: #### R ENAL, URIC, MG #### [facility] [address] [address] [address] Hari Palmer Creatinine [Mass/Vol] 3.38 mg/dL Critically high 0.55-1.02 [facility] Comment on above: Performed By: #### R ENAL, URIC, MG #### [facility] [address] [place] [address] Dr. Hari Palmer EGFR-AF VI[place] 18 mL/min/1.73m2 Critically low >=60 [facility] Comment on above: Performed By: #### R ENAL, URIC, MG #### [facility] [address] [place] [address] Dr. Hari Palmer EGFR-NON AF [place]ESE 15 mL/min/1.73m2 Critically low >=60 [facility] Comment on above: Performed By: #### R ENAL, URIC, MG #### [facility] [address] [place] [address] Dr. Hari Palmer Glucose [Mass/Vol] 113 mg/dL Critically high 74-106 [facility] Comment on above: Performed By: #### R ENAL, URIC, MG #### [facility] [address] [place] [address] Dr. Hari Palmer Phosphate [Mass/Vol] 4.4 mg/dL Normal 2.6-4.7 [facility] Comment on above: Performed By: #### R ENAL, URIC, MG #### [facility] [address] [place] [address] Dr. Hari Palmer Potassium [Moles/Vol] 4.0 mmol/L Normal 3.5-5.1 [facility] Comment on above: Performed By: #### R ENAL, URIC, MG #### [facility] [address] [place] [address] Dr. Hari Palmer Sodium [Moles/Vol] 137 mmol/L Normal 136-145 [facility] Comment on above: Performed By: #### R ENAL, URIC, MG #### [facility] [address] [place] [address] Dr. Hari Palmer Urea nitrogen [Mass/Vol] 44.0 mg/dL Critically high 7.0-18.0 [facility] Comment on above: Performed By: #### R ENAL, URIC, MG #### [facility] [address] [place] [address] Dr. Hari Palmer URIC ACID SERUMon 04-27-2022 Urate [Mass/Vol] 6.6 mg/dL Critically high 2.6-6.0 [facility] Comment on above: Performed By: #### R ENAL, URIC, MG #### [facility] [address] [place] [address] Dr. Hari Palmer URINE T PROTEIN CREAT RATIOo n 04-27-2022 Protein (U) [Mass/Vol] 31.4 mg/dL Critically high <=12.0 [facility] Comment on above: Performed By: #### M G, URIC, RENAL #### [facility] [address] [place] [address] Dr. Hari Palmer UR PROT CREAT RAT 0.55 Normal [facility] Comment on above: Performed By: #### M G, URIC, RENAL #### [facility] [address] [place] [address] Dr. Hari Palmer URINE CREAT 57.50 mg/dL Normal 20.00-300.00 [facility] Comment on above: Performed By: #### M G, URIC, RENAL #### [facility] [address] [place] [address] Dr. Hari Palmer ECHOCARDIO M/2D COMPLETEon 0 03-29-2022 ECHOCARDIO M/2D COMPLETE Patient: MANDEEP PURI Exam Date: 03/29/2022 : 1975 Gender:F Ordering : HAIDER FRENCH M.D. Admission #: [id number] Family : Order #: [id number] CLICK HERE TO VIEW EXAM ECHOCARDIOGRAM REPORT [...] Area(A4C): 17.00 cm2 Left Atrium Systolic Volume(A2C): 52775 mm3 Left Atrium Systolic Volume(A4C): 81610 mm3 Mitral Valve MV E to A Ratio: 0.80 Deceleration Meagher: 3210 mm/s2 Mitral Valve A-Wave Peak Velocity: [...] M.D. on 04/01/2022 at 12:33 Normal [facility] COVID-19 SOFIAOrdered By: Mary Beth Jones on 03-28-2022 SARS-CoV+SARS-CoV-2 (COVID-19) Ag IA.rapid Ql (Resp) Negative Negative [facility] Comment on above: This is a duplicate Ada SARS Antigen (GLORIA) result to be used for statistical tracking purpose only. No Panel InformationOrdered By: Shabbir Jones on 03-28-2022 SARS Antigen (LFIA) [facility] BLOOD TYPE AND RHon 02-13-20 ABO INTERPRETATION O Normal [facility] Comment on above: Performed By: #### 3 1397, 57382, 78626, 23935, 65594 #### [facility] [address] [place] [address], [place] RH INTERPRETATION Positive Normal [facility] Comment on above: Performed By: #### 3 1397, 01542, 95135, 76160, 24345 #### [facility] [address] [place] [address], [place] BNP (B-TYPE NATRIURETIC PEPT JOEL)on 02-12-2022 Natriuretic peptide B (Bld) [Mass/Vol] 10 pg/mL Normal 0-100 [facility] Comment on above: Result Comment: Give n the appropriate clinical setting a BNP result of >100 pg/mL indicates congestive heart failure. Performed By: #### 8 5123, 77768 #### [facility] [address] [facility]. [address] CBC W/DIFFon 02-12-2022 ABS IMM GRANS 0.2 10*3/uL Normal 0.0-0.2 [facility] Comment on above: Performed By: #### 3 1397, 48744, 03141, 21667, 87000 #### [facility] [address] [facility]. [address] ABS NEUTROPHILS 7.8 10*3/uL High 1.6-7.6 [facility] Comment on above: Performed By: #### 3 1397, 20588, 98901, 88426, 24235 #### [facility] [address] [facility] [place] [address], [facility] Basophils (Bld) [#/Vol] 0.1 10*3/uL Normal 0.0-0.2 [facility] Comment on above: Performed By: #### 3 1397, 62787, 96161, 31799, 24550 #### [facility] [address] [facility] [place] [place] [address], [facility] Basophils/100 WBC (Bld) 0.6 % Normal 0.0-1.0 [facility] Comment on above: Performed By: #### 3 1397, 81424, 60354, 66383, 69156 #### [facility] [address] [facility] [place] [place] [address], [facility] Eosinophils (Bld) [#/Vol] 0.3 10*3/uL Normal 0.0-0.5 [facility] Comment on above: Performed By: #### 3 1397, 25341, 61873, 52866, 71235 #### [facility] [address] [place] [address], [facility] Eosinophils/100 WBC (Bld) 2.5 % Normal 0.0-6.0 [facility] Comment on above: Performed By: #### 3 1397, 30445, 08184, 98372, 25903 #### [facility] [address] [place] [address], [facility] Erythrocyte distribution width (RBC) [Ratio] 13.6 % Normal 11.5-15.0 [facility] Comment on above: Performed By: #### 3 1397, 71088, 93166, 57625, 04514 #### [facility] [address] [facility]. [address] Hematocrit (Bld) [Volume fraction] 34.5 % Low 36.0-45.0 [facility] Comment on above: Performed By: #### 3 1397, 00177, 27859, 00695, 45694 #### [facility] [address] Hemoglobin (Bld) [Mass/Vol] 11.3 g/dL Low 12.0-15.0 [facility] Comment on above: Performed By: #### 3 1397, 15467, 91529, 47662, 34123 #### [facility] [address] [facility] [place] [address], [facility] IMMATURE GRANS 1.4 % High 0.0-1.0 [facility] Comment on above: Performed By: #### 3 1397, 23521, 20986, 59504, 38654 #### [facility] [address] [place] [address], [facility] Lymphocytes (Bld) [#/Vol] 2.0 10*3/uL Normal 1.2-4.0 [facility] Comment on above: Performed By: #### 3 1397, 37149, 15811, 30279, 35365 #### [facility] [address] Lymphocytes/100 WBC (Bld) 18.6 % Low 20.0-45.0 [facility] Comment on above: Performed By: #### 3 1397, 67762, 65676, 40588, 10544 #### [facility] [address] [place] [address], [facility] MCH (RBC) [Entitic mass] 31.3 pg Normal 27.0-33.0 [facility] Comment on above: Performed By: #### 3 1397, 62082, 40585, 33863, 05073 #### [facility] [address] [facility] MCHC (RBC) [Mass/Vol] 32.8 g/dL Normal 32.0-35.0 [facility] Comment on above: Performed By: #### 3 1397, 75919, 46135, 57340, 22378 #### [facility] [address] MCV (RBC) [Entitic vol] 95.6 fL Normal 82.0-98.0 [facility] Comment on above: Performed By: #### 3 1397, 61906, 59954, 77215, 51688 #### [facility] [address] [facility] [place] [address], [facility] Monocytes (Bld) [#/Vol] 0.5 10*3/uL Normal 0.1-1.0 [facility] Comment on above: Performed By: #### 3 1397, 23974, 55410, 78715, 56283 #### [facility] [address] [facility] [place] [address], [facility] MONOS 4.9 % Low 5.0-12.0 [facility] Comment on above: Performed By: #### 3 1397, 69206, 45489, 57415, 22122 #### [facility] [address] [place] [address], [place] Neutrophils/100 WBC (Bld) 72.0 % Normal 40.0-72.0 [facility] Comment on above: Performed By: #### 3 1397, 68873, 62029, 64266, 16213 #### [facility] [address] [place] [address], [facility] Nucleated RBC/100 WBC (Bld) [Ratio] 0 % Normal 0-0 [facility] Comment on above: Performed By: #### 3 1397, 51944, 73911, 93117, 34281 #### [facility] [address] [facility] [place] [address], [facility] PLAT CNT 315 10*3/uL Normal 150-400 [facility] Comment on above: Performed By: #### 3 1397, 76370, 99400, 51645, 73464 #### [facility] [address] [facility] [place] [place] [address], [facility] RBC (Bld) [#/Vol] 3.61 10*6/uL Low 3.80-5.00 [facility] Comment on above: Performed By: #### 3 1397, 43617, 52089, 22165, 01546 #### [facility] [address] [facility] [place] [address], [facility] WBC (Bld) [#/Vol] 10.78 10*3/uL High 4.00-10.60 [facility] Comment on above: Performed By: #### 3 1397, 82021, 16453, 95715, 66653 #### [facility] [address] [facility] [place] [address], [facility] CHEST AND LATERALon 02-13-20 CHEST AND LATERAL [facility] Department of Radiology [address] [place] [id number] Patient Name: MANDEEP PURI : 1975 Sex: [...] pathology. Electronically signed: Royal Dominguez. Transcribed by: [email or web address], User Resident: Electronically Signed by: ROYAL DOMINGUEZ @ 02/13/2022 11:48 AM Normal [facility] CMV IGG BLOODon 02-12-2022 CMV IGG 3.13 Normal [facility] Comment on above: Result Comment: NORM AL RANGES: < OR = 0.9O NEGATIVE ; NO DETECTABLE IgG ANTIBODY TO CMV 0.91 - 1.09 EQUIVOCAL; REPEAT TESTING SUGGESTED > OR = 1.10 POSITIVE ; INDICATES PRESENCE OF DETECTABLE IgG ANTIBODY TO CMV Performed By: #### 3 1397, 88557, 30169, 97427, 58467 #### [facility] [address] [place] [address], [facility] COMP METABOLIC PANELon 02-12 Albumin [Mass/Vol] 4.5 g/dL Normal 3.5-5.7 [facility] Comment on above: Performed By: #### 2 2505, 63006, 65850 #### [facility] [address] [place] [address], [place] ALKALINE PHOSPH 89 IU/L Normal 34-104 [facility] Comment on above: Performed By: #### 2 2505, 33783, 67452 #### [facility] [address] [place] [address], [facility] ALT [Catalytic activity/Vol] 12 U/L Normal 7-52 [facility] Comment on above: Performed By: #### 2 2505, 46950, 24843 #### [facility] [address] [place] [address], [facility] AST [Catalytic activity/Vol] 13 U/L Normal 13-39 [facility] Comment on above: Performed By: #### 2 2505, 24585, 29230 #### [facility] [address] [place] [address], [place] Bilirubin [Mass/Vol] 0.3 mg/dL Normal 0.3-1.0 [facility] Comment on above: Performed By: #### 2 2505, 04967, 78660 #### [facility] [address] [place] [address], [place] Calcium [Mass/Vol] 9.5 mg/dL Normal 8.6-10.3 [facility] Comment on above: Performed By: #### 2 2505, 38167, 22530 #### [facility] [address] [place] [address], [place] Chloride [Moles/Vol] 103 mmol/L Normal 98-107 [facility] Comment on above: Performed By: #### 2 2505, 28394, 73148 #### [facility] [address] [place] [address], [place] CO2 [Moles/Vol] 22 mmol/L Normal 21-31 [facility] Comment on above: Performed By: #### 2 2505, 94900, 10895 #### [facility] [address] [place] [address], [place] Creatinine [Mass/Vol] 3.51 mg/dL High 0.60-1.20 [facility] Comment on above: Performed By: #### 2 2505, 39119, 80117 #### [facility] [address] [place] [address], [place] eGFR- 17 ml/min/1.73sq m Abnormal >60 [facility] Comment on above: Performed By: #### 2 2505, 62165, 54579 #### [facility] [address] [place] [address], [place] eGFR- non- 14 ml/min/1.73sq m Abnormal >60 [facility] Comment on above: Performed By: #### 2 2505, 47768, 94773 #### [facility] [address] [place] [address], [place] Glucose [Mass/Vol] 100 mg/dL Normal 70-100 [facility] Comment on above: Performed By: #### 2 2505, 84200, 32465 #### [facility] [address] [place] [address], [place] Potassium [Moles/Vol] 3.9 mmol/L Normal 3.5-5.1 [facility] Comment on above: Performed By: #### 2 2505, 01996, 23146 #### [facility] [address] [place] [address], [place] Protein [Mass/Vol] 8.0 g/dL Normal 6.0-8.3 [facility] Comment on above: Performed By: #### 2 2505, 36658, 87779 #### [facility] [address] [facility] [place] [address], [facility] Sodium [Moles/Vol] 136 mmol/L Normal 136-145 [facility] Comment on above: Performed By: #### 2 2505, 87699, 24791 #### [facility] [address] [facility] [place] [address], [facility] Urea nitrogen [Mass/Vol] 41 mg/dL High 7-25 [facility] Comment on above: Performed By: #### 2 2505, 32006, 12765 #### [facility] [address] [facility] [place] [address], [facility] CREATININE URINE RANDOMon Creatinine (U) [Mass/Vol] 63.0 mg/dL Normal [facility] Comment on above: Result Comment: Ther e are no established reference values for random urine specimens Performed By: #### 3 1397, 93897, 23667, 40321, 93491 #### [facility] [address] [place] [address], [facility] CT RENAL RECIPIENT ABDOMEN A ND PEVLIS WO CONTRASTon 02-12-2022 CT RENAL RECIPIENT ABDOMEN AND PEVLIS WO CONTRAST [facility] Department of Radiology [address] [place] [id number] Patient Name: MANDEEP PURI : 1975 [...] achievable. Electronically signed: NAN SARAVIA. Transcribed by: [email or web address], User Resident: Electronically Signed by: NAN SARAVIA @ 02/12/2022 02:59 PM Normal [facility] Comment on above: Order Comment: , Pre [...] Bilirubin.direct [Mass/Vol] 0.0 mg/dL Normal 0.0-0.2 [facility] Comment on above: Performed By: #### 2 1055, 49186, 76871 #### [facility] [address] [facility] [place] [address], [facility] BRETT LAGUERRE VIRUS ABon 05- EB VCA IGG 2.35 Normal [facility] Comment on above: Order Comment: CONSI STENT WITH PAST EBV INFECTION Result Comment: NORM AL RANGES: < OR = 0.9O NEGATIVE ; NO DETECTABLE IgG ANTIBODY TO EBV-VCA 0.91 - 1.09 EQUIVOCAL; REPEAT TESTING SUGGESTED > OR = 1.10 POSITIVE ; INDICATES PRESENCE OF DETECTABLE IgG ANTIBODY TO EBV Performed By: #### 3 1397, 55865, 45052, 29498, 76852 #### [facility] [address] EB VCA IGM 0.00 Normal [facility] Comment on above: Order Comment: CONSI STENT WITH PAST EBV INFECTION Result Comment: NORM AL RANGES: < OR = 0.9O NEGATIVE ; NO SIGNIFICANT LEVEL OF DETECTABLE EBV-VCA IgM AB 0.91 - 1.09 EQUIVOCAL; REPEAT TESTING SUGGESTED > OR = 1.10 POSITIVE ; SIGNIFICANT LEVEL OF DETECTABLE EBV-VCA IgM AB Performed By: #### 3 1397, 17969, 93448, 39852, 60064 #### [facility] [address] HEMOGLOBIN A1Con 02-12-2022 Glucose [Moles/Vol] 120 mmol/L Normal [facility] Comment on above: Performed By: #### 8 5123, 98993 #### [facility] [facility] [address] HbA1c (Bld) [Mass fraction] 5.8 % Normal 4.0-6.0 [facility] Comment on above: Performed By: #### 8 5123, 24103 #### [facility] [address] HEPATITIS A ANTIBODY IGMon 0 02-12-2022 HEP A AB IGM Non-Reactive Normal NONREACTIVE [facility] Comment on above: Performed By: #### 3 1397, 90808, 85121, 51192, 89481 #### [facility] [address] [facility]. [address] HEPATITIS B CORE ANTIBODYon 02-12-2022 HEP B CORE AB Non-Reactive Normal NONREACTIVE [facility] Comment on above: Performed By: #### 3 1397, 07680, 54112, 07912, 08121 #### [facility] [address] [facility] [place] [address], [facility] HEPATITIS B SURFACE ANTIBODY QUANTon 02-12-2022 HEP B SURF AB 1.14 mIU/ml Normal [facility] Comment on above: Result Comment: INTE RPRETATION: NONREACTIVE<8.00 mIU/mL INDETERMINATE8.00 - 12.00 mIU/mL REACTIVE>12 mIU/mL Performed By: #### 3 1397, 58664, 16062, 98089, 51489 #### [facility] [address] HEPATITIS B SURFACE ANTIGEN QUALon 02-12-2022 HEP B SURF AG QUAL Non-Reactive Normal NONREACTIVE [facility] Comment on above: Performed By: #### 3 1397, 65007, 95502, 84321, 50336 #### [facility] [address] HEPATITIS C ANTIBODYon 02-12 ANTI-HCV Non-Reactive Normal NONREACTIVE [facility] Comment on above: Performed By: #### 3 1397, 86880, 47027, 05248, 10547 #### [facility] 3000 [facility] [address] HIV1 AND 2 COMBO 4Gon 2021 HIV COMBO Negative Normal NEGATIVE [facility] Comment on above: Performed By: #### 3 1397, 10978, 08675, 16438, 04325 #### [facility] [address] [facility]. [address] HLA ABC CLASS I TYPINGon A*-1 EQUIVALENT 1 Normal [facility] Comment on above: Order Comment: [...] to frequency. Performed By: #### 3 1397, 10910, 65836, 47264, 60745 #### [facility] [address] [place] [address], [facility] A*-2 EQUIVALENT 2 Normal [facility] Comment on above: Order Comment: Some of [...] to frequency. Performed By: #### 3 1397, 17376, 28449, 42834, 36425 #### [facility] 3000 [facility] [place] [address], [facility] B*-1 EQUIVALENT 35 Normal [facility] Comment on above: Order Comment: [...] to frequency. Performed By: #### 3 1397, 74078, 87558, 53101, 13915 #### [facility] 3000 [facility] [place] [address], [facility] B*-2 EQUIVALENT 37 Normal [facility] Comment on above: Order Comment: [...] to frequency. Performed By: #### 3 1397, 15613, 01567, 74147, 20356 #### [facility] [address] [facility] [place] [address], [facility] Bw*-1 EQUIVALENT 4 Normal [facility] Comment on above: Order Comment: [...] to frequency. Performed By: #### 3 1397, 60686, 31372, 43120, 24641 #### [facility] [address] [facility] [place] [place] [address], [facility] Bw*-2 EQUIVALENT 6 Normal [facility] Comment on above: Order Comment: Some of [...] to frequency. Performed By: #### 3 1397, 98727, 08379, 50012, 23445 #### [facility] 3000 [facility] [place] [place] [address], [facility] C*-1 EQUIVALENT 4 Normal [facility] Comment on above: Order Comment: [...] to frequency. Performed By: #### 3 1397, 89861, 12307, 33314, 87896 #### [facility] 3000 [place] [address], [facility] C*-2 EQUIVALENT 6 Normal [facility] Comment on above: Order Comment: Some of [...] to frequency. Performed By: #### 3 1397, 34092, 08265, 00790, 42700 #### [facility] [address] METHOD Class I Typing by PCR-SSOP Luminex Normal [facility] Comment on above: Order Comment: Some of [...] to frequency. Performed By: #### 3 1397, 75664, 38036, 52388, 35886 #### [facility] [address] [facility]. [place] [id number], [facility] SIGNED BY Normal [facility] Comment on above: Order Comment: [...] to frequency. Result Comment: Sree Noriega, MS,CHT(DONA),MT(ASCP) Waste Picker, Transplant Immunology Performed By: #### 3 1397, 14691, 16420, 84230, 99423 #### [facility] [address] [place] [address], [facility] HLA DR CLASS II TYPINGon DPB1*-1 EQUIVALENT 04:01 Normal [facility] Comment on above: Order Comment: [...] to frequency. Performed By: #### 3 1397, 09666, 93749, 84273, 81980 #### [facility] 3000 [facility] [place] [address], [facility] DPB1*-2 EQUIVALENT 04:02 Normal [facility] Comment on above: Order Comment: [...] to frequency. Performed By: #### 3 1397, 38469, 35664, 88815, 95922 #### [facility] [address] [place] [address], [facility] DQA1*-1 EQUIVALENT 01 Normal [facility] Comment on above: Order Comment: [...] to frequency. Performed By: #### 3 1397, 44322, 02647, 73166, 97002 #### [facility] 3000 [facility] [place] [address], [facility] DQA1*-2 EQUIVALENT 05 Normal [facility] Comment on above: Order Comment: [...] to frequency. Performed By: #### 3 1397, 72944, 27942, 55118, 08310 #### [facility] 3000 [facility] [place] [address], [place] DQB1*-1 EQUIVALENT 7 Normal [facility] Comment on above: Order Comment: [...] to frequency. Performed By: #### 3 1397, 15623, 25482, 22800, 59848 #### [facility] [address] [place] [address], [place] DQB1*-2 EQUIVALENT 5 Normal [facility] Comment on above: Order Comment: [...] to frequency. Performed By: #### 3 1397, 62820, 97037, 59193, 24248 #### [facility] [address] [place] [address], [facility] DRB1*-1 EQUIVALENT 10 Normal [facility] Comment on above: Order Comment: Some of [...] to frequency. Performed By: #### 3 1397, 82850, 86717, 30829, 18629 #### [facility] [address] [place] [address], [facility] DRB1*-2 EQUIVALENT 11 Normal [facility] Comment on above: Order Comment: [...] to frequency. Performed By: #### 3 1397, 32720, 49317, 60902, 05031 #### [facility] 3000 [facility] [place] [address], [facility] DRB3*-1 EQUIVALENT 52 Normal [facility] Comment on above: Order Comment: [...] to frequency. Performed By: #### 3 1397, 85552, 64105, 10425, 94758 #### [facility] [address] METHOD Class II Typing by PCR-SSOP Luminex Normal [facility] Comment on above: Order Comment: [...] to frequency. Performed By: #### 3 1397, 69150, 74497, 09757, 15860 #### [facility] [address] [facility] [place] [address], [facility] LIPID PROFILEon 02-12-2022 Cholesterol [Mass/Vol] 221 mg/dL High 120-200 Th e [facility] Comment on above: Result Comment: CHOL ESTEROL REFERENCE RANGE: 20 YEARS AND OLDER CARDIOVASCULAR RISK Less than 200 mg/dl Low Risk 200 to 239 mg/dl Borderline Risk 240 mg/dl and greater High Risk Performed By: #### 3 1397, 31306, 89459, 68322, 23756 #### [facility] [address] [place] [address], [facility] Cholesterol in HDL [Mass/Vol] 40 mg/dL Normal 23-92 [facility] Comment on above: Result Comment: Slig ht variation in normal range could be due to gender and/or age. HDL CHOLESTEROL REFERENCE RANGE: 20 years and older Cardiovascular Risk > or =60 mg/dL Desirable 40 TO 59 mg/dL Low Risk <40 mg/dL High Risk Performed By: #### 3 1397, 70787, 19927, 58717, 66074 #### [facility] [address] [place] [address], [facility] Cholesterol in LDL [Mass/Vol] 101 mg/dL Normal 0-130 [facility] Comment on above: Result Comment: LDL IS A CALCULATION LDL IS ONLY VALID IF THE TRIG IS LESS THAN 400. Performed By: #### 3 1397, 38006, 44756, 52076, 82206 #### [facility] [address] [place] [address], [facility] Cholesterol.total/Chol esterol in HDL [Mass ratio] 5.5 {ratio} High .0-4.5 [facility] Comment on above: Performed By: #### 3 1397, 53250, 31605, 41710, 31853 #### [facility] [address] NON-HDL CHOLESTEROL 181 mg/dL Normal [facility] Comment on above: Performed By: #### 3 1397, 31790, 23242, 73201, 28463 #### [facility] [address] Triglyceride [Mass/Vol] 402 mg/dL High 40-149 [facility] Comment on above: Result Comment: TRIG LYCERIDE REFERENCE RANGE: 20 YEARS AND OLDER CARDIOVASCULAR RISK LESS THAN 150 mg/dl LOW RISK 150 TO 199 mg/dl BORDERLINE RISK 200 mg/dl AND GREATER HIGH RISK Performed By: #### 3 1397, 27317, 47386, 57350, 82959 #### [facility] [address] [place] [address], [facility] VLDL CHOL 80 mg/dL High 0-40 [facility] Comment on above: Performed By: #### 3 1397, 22824, 89263, 02625, 89252 #### [facility] [address] [place] [address], [facility] MUMPS IGG BLDon 02-12-2022 MUMPS IGG 5.46 Normal [facility] Comment on above: Result Comment: NORM AL RANGES: < OR = 0.9O NEGATIVE ; NO DETECTABLE IgG ANTIBODY TO MUMPS 0.91 - 1.09 EQUIVOCAL; REPEAT TESTING SUGGESTED > OR = 1.10 POSITIVE ; INDICATES PRESENCE OF DETECTABLE IgG ANTIBODY TO MUMPS Performed By: #### 3 1397, 01342, 04540, 28366, 08022 #### [facility] 3000 [facility] RUBELLAon 02-12-2022 RUBELLA 4.79 Normal [facility] Comment on above: Result Comment: NORM AL RANGES: < OR = 0.9O NEGATIVE ; NO DETECTABLE IgG ANTIBODY TO RUBELLA 0.91 - 1.09 EQUIVOCAL; REPEAT TESTING SUGGESTED > OR = 1.10 POSITIVE ; INDICATES PRESENCE OF DETECTABLE IgG ANTIBODY TO RUBELLA VIRUS Performed By: #### 3 1397, 72017, 64987, 96220, 47325 #### [facility] [address] [place] [address], [facility] RUBEOLA MEASLES IGGon 2021 RUBEO IGG 6.43 Normal [facility] Comment on above: Result Comment: NORM AL RANGES: < OR = 0.9O NEGATIVE ; NO DETECTABLE IgG ANTIBODY TO RUBEOLA 0.91 - 1.09 EQUIVOCAL; REPEAT TESTING SUGGESTED > OR = 1.10 POSITIVE ; INDICATES PRESENCE OF DETECTABLE IgG ANTIBODY TO RUBEOLA Performed By: #### 3 1397, 67889, 09817, 35824, 92601 #### [facility] [address] SINGLE ANTIGEN CLASS 1on METHOD Class I Single Antigen Normal Th e [facility] Comment on above: Order Comment: [...] to frequency. Performed By: #### 3 1397, 41613, 06309, 31349, 65285 #### [facility] [address] SINGLE ANTIGEN CLASS 2on COMMENTS Normal [facility] Comment on above: Order Comment: Some of [...] watch list. Performed By: #### 3 1397, 24749, 37958, 95319, 33190 #### [facility] [address] Result Comment: Clas s I Antigen Microbeads Potential specificites added to the watch list. CPRA 0 Normal [facility] Comment on above: Order Comment: [...] to frequency. Performed By: #### 3 1397, 67562, 74229, 52720, 00285 #### [facility] [address] [place] [address], [facility] METHOD Class II Single Antigen Normal T he [facility] Comment on above: Order Comment: [...] to frequency. Performed By: #### 3 1397, 97330, 55858, 11995, 26267 #### [facility] [address] [place] [address], [facility] T PROT UR Yesy 02-12-2022 U TOTAL PROTEIN 44.0 mg/dL Normal [facility] Comment on above: Result Comment: Ther e are no established reference values for random urine specimens Performed By: #### 3 1397, 06261, 98407, 61814, 13056 #### [facility] [address] [facility]. [address] TB QUANTIFERON PLUSon 2021 MITOGEN MINUS NIL >10.00 Normal [facility] Comment on above: Performed By: #### 3 1592 #### [facility] [address] [facility] [place] [place] [address], [facility] NIL 0.03 IU/mL Normal [facility] Comment on above: Performed By: #### 3 1592 #### [facility] [address] [facility]. [address] TB QUANTIFERON Negative Normal NEGATIVE [facility] Comment on above: Result Comment: Jadiel tiferon TB Gold Interpretation (IU/mL): NEGATIVE: M. tuberculosis infection not likely. Nil: <=8.0 TB1 Antigen minus Nil (ON5AR-DZD): <0.35 OR >=0.35; and <25% of Nil value. TB2 Antigen minus Nil ([id number]): <0.35 OR >=0.35; and <25% of Nil [...] (https://www.cdc.gov/tb/publications/guidlines/default.htm Performed By: #### 3 1592 #### [facility] [address] [facility] [place] [place] [address], [facility] TB1 AG 0.05 IU/mL Normal [facility] Comment on above: Performed By: #### 3 1592 #### [facility] [address] [place] [address], [facility] TB1 AG MINUS NIL 0.02 IU/mL Normal [facility] Comment on above: Performed By: #### 3 1592 #### [facility] [address] [place] [address], [facility] TB2 AG 0.05 IU/mL Normal [facility] Comment on above: Performed By: #### 3 1592 #### [facility] [address] [place] [address], [facility] TB2 AG MINUS NIL 0.02 IU/mL Normal [facility] Comment on above: Performed By: #### 3 1592 #### [facility] [address] [place] [address], [facility] UA,MICROSCOPIC REQUIREDon Appearance (U) SL CLOUDY Abnormal CLEAR [facility] Comment on above: Performed By: #### 3 1397, 07138, 09211, 85136, 67174 #### [facility] 3000 [facility] [place] [place] [address], [facility] Bilirubin Ql (U) Negative Normal NEGATIVE [facility] Comment on above: Performed By: #### 3 1397, 44909, 10229, 44867, 05332 #### [facility] [address] [place] [address], [facility] Color (U) STRAW Abnormal YELLOW [facility] Comment on above: Performed By: #### 3 1397, 12699, 21304, 26017, 07096 #### [facility] [address] [place] [address], [facility] EPIS MANY Abnormal FEW,OCC,NONE SEEN [facility] Comment on above: Performed By: #### 3 1397, 75448, 50805, 69744, 89024 #### [facility] [address] [place] [address], [facility] Glucose Ql (U) 50 mg/dL Abnormal NEGATIVE [facility] Comment on above: Performed By: #### 3 1397, 72378, 65633, 67865, 40725 #### [facility] [address] [place] [address], [place] Hemoglobin Ql (U) Negative Normal NEGATIVE [facility] Comment on above: Performed By: #### 3 1397, 58199, 80000, 20232, 23197 #### [facility] [address] [place] [address], [facility] KETONE Negative Normal NEGATIVE [facility] Comment on above: Performed By: #### 3 1397, 03797, 27002, 65199, 70316 #### [facility] [address] [place] [address], [facility] LEUK MARYAN MODERATE Abnormal NEGATIVE [facility] Comment on above: Performed By: #### 3 1397, 24910, 96061, 68530, 53593 #### [facility] [address] [place] [address], [facility] Nitrite Ql (U) Negative Normal NEGATIVE [facility] Comment on above: Performed By: #### 3 1397, 53323, 33684, 25893, 45676 #### [facility] [address] [place] [address], [facility] pH (U) 7.0 [pH] Normal 5.0-8.0 [facility] Comment on above: Performed By: #### 3 1397, 82843, 31898, 15627, 73222 #### [facility] [address] [place] [address], [facility] Protein Ql (U) 30 mg/dL Abnormal NEGATIVE [facility] Comment on above: Performed By: #### 3 1397, 04217, 40844, 91239, 24699 #### [facility] [address] [place] [address], [place] RBC NONE SEEN Normal NONE SEEN [facility] Comment on above: Performed By: #### 3 1397, 75847, 33266, 84956, 81302 #### [facility] [address] [facility]. [address] SPEC GRAV 1.009 Low 1.015-1.020 [facility] Comment on above: Performed By: #### 3 1397, 40778, 57686, 70542, 18521 #### [facility] [address] [facility]. [address] WBC UA 11-20 Abnormal NONE SEEN [facility] Comment on above: Performed By: #### 3 1397, 56443, 62191, 10501, 09211 #### [facility] 3000 [facility] [address] VARICELLA ZOSTER IGGon 02-12 VARICELLA IGG 3.29 Normal [facility] Comment on above: Result Comment: NORM AL RANGES: < OR = 0.9O NEGATIVE ; NO DETECTABLE IgG ANTIBODY TO VARICELLA-ZOSTER VIRUS 0.91 - 1.09 EQUIVOCAL; REPEAT TESTING SUGGESTED > OR = 1.10 POSITIVE ; INDICATES PRESENCE OF DETECTABLE IgG ANTIBODY TO VARICELLA-ZOSTER VIRUS Performed By: #### 3 1397, 41905, 36086, 84166, 61170 #### [facility] [address] [facility]. [address] PTH INTACTon 12-04-2021 PTH, Intact 165 pg/mL Critically high 15-65 [facility] Comment on above: Performed By: #### M G, URIC, RENAL #### [facility] [address] [place] [address] [address] Hari Palmer FERRITINon 12-03-2021 Ferritin [Mass/Vol] 256.0 ng/mL Critically high 6.2-137.0 [facility] Comment on above: Performed By: #### M G, URIC, RENAL #### [facility] [address] [place] [address] [address] Hari Palmer HEMOGRAM AND PLATELon 2021 Hematocrit (Bld) [Volume fraction] 33.7 % Critically low 36.0-48.0 [facility] Comment on above: Performed By: #### M G, URIC, RENAL #### [facility] [address] [place] [address] Dr. Hari Palmer Hemoglobin (Bld) [Mass/Vol] 10.9 g/dL Critically low 12.0-16.0 [facility] Comment on above: Performed By: #### M G, URIC, RENAL #### [facility] [address] [place] [address] Dr. Hari Palmer MCH (RBC) [Entitic mass] 31.4 pg Normal 26.7-34.0 [facility] Comment on above: Performed By: #### M Edy, URIC, RENAL #### [facility] [address] [place] [address] Dr. Hari Palmer MCHC (RBC) [Mass/Vol] 32.3 g/dL Normal 29.9-35.2 [facility] Comment on above: Performed By: #### M G, URIC, RENAL #### [facility] [address] [place] [address] Dr. Hari Palmer MCV (RBC) [Entitic vol] 97.1 fL Normal 81.0-99.0 [facility] Comment on above: Performed By: #### M G, URIC, RENAL #### [facility] [address] [place] [address] Dr. Hari Palmer PLT 314 103/ul Normal 150-450 [facility] Comment on above: Performed By: #### M G, URIC, RENAL #### [facility] [address] [place] [address] Dr. Hari Palmer RBC 3.47 106/ul Critically low 4.20-5.40 [facility] Comment on above: Performed By: #### M G, URIC, RENAL #### [facility] [address] [place] [address] Dr. Hari Palmer WBC 9.4 103/ul Normal 4.0-11.0 [facility] Comment on above: Performed By: #### M G, URIC, RENAL #### [facility] [address] [place] [address] Dr. Hari Palmer IRON AND TIBCon 12-03-2021 % SATURATION 19.0 % Normal [facility] Comment on above: Performed By: #### M G, URIC, RENAL #### [facility] [address] [place] [address] Dr. Hari Palmer Iron [Mass/Vol] 52.0 ug/dL Normal 37.0-170.0 [facility] Comment on above: Performed By: #### M G, URIC, RENAL #### [facility] [address] [place] [address] Dr. Hari Palmer TIBC DIRECT 273.0 ug/dL Normal 261.0-497.0 [facility] Comment on above: Performed By: #### M G, URIC, RENAL #### [facility] [address] [place] [address] Dr. Hari Palmer MAGNESIUMon 12-03-2021 Magnesium [Mass/Vol] 2.1 mg/dL Normal 1.6-2.3 [facility] Comment on above: Performed By: #### M G, URIC, RENAL #### [facility] [address] [place] [address] Dr. Hari Palmer RENAL FUNCTION PANELon 12-03 Albumin [Mass/Vol] 3.6 g/dL Normal 3.5-5.0 [facility] Comment on above: Performed By: #### M G, URIC, RENAL #### [facility] [address] [place] [address] Dr. Hari Palmer Calcium [Mass/Vol] 8.4 mg/dL Normal 8.4-10.2 [facility] Comment on above: Performed By: #### M G, URIC, RENAL #### [facility] [address] [place] [address] Dr. Hari Palmer Chloride [Moles/Vol] 101 mmol/L Normal 98-107 [facility] Comment on above: Performed By: #### M G, URIC, RENAL #### [facility] [address] [place] [address] Dr. Hari Palmer CO2 [Moles/Vol] 24.3 mmol/L Normal 22.0-30.0 [facility] Comment on above: Performed By: #### M G, URIC, RENAL #### [facility] [address] [place] [address] [address] Hari Palmer Creatinine [Mass/Vol] 3.32 mg/dL Critically high 0.52-1.04 [facility] Comment on above: Performed By: #### M G, URIC, RENAL #### [facility] [address] [place] [address] [address] Hari Palmer EGFR-AF [place]ESE 18 mL/min/1.73m2 Critically low >=60 [facility] Comment on above: Performed By: #### M Edy, URIC, RENAL #### [facility] [address] [place] [address] Dr. Hari Palmer EGFR-NON AF [place]ESE 15 mL/min/1.73m2 Critically low >=60 [facility] Comment on above: Performed By: #### M G, URIC, RENAL #### [facility] [address] [address] [address] Hari Palmer Glucose [Mass/Vol] 119 mg/dL Critically high 74-106 T [facility] Comment on above: Performed By: #### M G, URIC, RENAL #### [facility] [address] [place] [address] [address] Hari Palmer Phosphate [Mass/Vol] 4.7 mg/dL Critically high 2.5-4.5 [facility] Comment on above: Performed By: #### M G, URIC, RENAL #### [facility] [address] [place] [address] [address] Hari Palmer Potassium [Moles/Vol] 4.0 mmol/L Normal 3.4-5.0 [facility] Comment on above: Performed By: #### M G, URIC, RENAL #### [facility] [address] [place] [address] [address] Hari Palmer Sodium [Moles/Vol] 135 mmol/L Critically low 137-145 [facility] Comment on above: Performed By: #### M G, URIC, RENAL #### [facility] [address] [address] [address] Hari Palmer Urea nitrogen [Mass/Vol] 42.0 mg/dL Critically high 7.0-17.0 [facility] Comment on above: Performed By: #### M G, URIC, RENAL #### [facility] [address] [place] [address] Dr. Hari Palmer UA RANDOM W/MICROSCOPICon BACTERIA TRACE Abnormal NONE SEEN [facility] Comment on above: Performed By: #### U AMIC #### [facility] [address] [place] [address] Dr. Hari Palmer Bilirubin Ql (U) Negative Normal NEGATIVE [facility] Comment on above: Performed By: #### U AMIC #### [facility] [address] [place] [address] Dr. Hari Palmer CAST NONE SEEN Normal NONE SEEN [facility] Comment on above: Performed By: #### U AMIC #### [facility] [address] [place] [address] Dr. Hari Palmer Clarity (U) CLEAR Normal CLEAR [facility] Comment on above: Performed By: #### U AMIC #### [facility] [address] [place] [address] Dr. Hari Palmer Color (U) LT. YELLOW Normal YELLOW [facility] Comment on above: Performed By: #### U AMIC #### [facility] [address] [address] [address] Hari Palmer Crystals LM Nom (Urine sed) NONE SEEN Normal NONE SEEN [facility] Comment on above: Performed By: #### U AMIC #### [facility] [address] [place] [address] Dr. Hari Palmer Epithelial cells LM Ql (Urine sed) FEW Abnormal NONE SEEN /RARE [facility] Comment on above: Performed By: #### U AMIC #### [facility] [address] [place] [address] Dr. Hari Palmer Glucose Ql (U) 100 mg/dl Abnormal NEGATIVE [facility] Comment on above: Performed By: #### U AMIC #### [facility] [address] [address] [address] Hari Palmer Hemoglobin Ql (U) TRACE-INTACT Abnormal NEGATIVE [facility] Comment on above: Performed By: #### U AMIC #### [facility] [address] [address] [address] Hari Palmer Ketones Ql (U) Negative Normal NEGATIVE [facility] Comment on above: Performed By: #### U AMIC #### [facility] [address] [address] [address] Hari Palmer LEUKOCYTES SMALL Abnormal NEGATIVE [facility] Comment on above: Performed By: #### U AMIC #### [facility] [address] [place] [address] Dr. Hari Palmer MUCOUS NONE SEEN Normal NONE SEEN [facility] Comment on above: Performed By: #### U AMIC #### [facility] [address] [address] [address] Hari Palmer Nitrite Ql (U) Negative Normal NEGATIVE [facility] Comment on above: Performed By: #### U AMIC #### [facility] [address] [place] [address] Dr. Hari Palmer pH (U) 6.0 [pH] Normal 5-9 [facility] Comment on above: Performed By: #### U AMIC #### [facility] [address] [address] [address] Hari Palmer RBC 0-2 Normal 0-2 [facility] Comment on above: Performed By: #### U AMIC #### [facility] [address] [place] [address] Dr. Hari Palmer SPEC GRAVITY 1.010 Normal 1.005-<=1.02 5 [facility] Comment on above: Performed By: #### U AMIC #### [facility] [address] [address] [address] Hari Palmer UA PROTEIN Negative Normal NEGATIVE/ TRACE [facility] Comment on above: Performed By: #### U AMIC #### [facility] [address] [address] [address] Hari Palmer Urobilinogen Qn (U) 0.2 {Janice'U}/dL Normal 0.2 - 1. 0 [facility] Comment on above: Performed By: #### U AMIC #### [facility] [address] [address] [address] Hari Palmer WBC 5-10 Abnormal NONE SEEN [facility] Comment on above: Performed By: #### U AMIC #### [facility] [address] [place] [address] Dr. Hari Palmer URIC ACID SERUMon 12-03-2021 Urate [Mass/Vol] 4.6 mg/dL Normal 2.5-6.2 [facility] Comment on above: Performed By: #### M G, URIC, RENAL #### [facility] [address] [place] [address] Dr. Hari Palmer URINE T PROTEIN CREAT RATIOo n 12-03-2021 Protein (U) [Mass/Vol] 31.7 mg/dL Critically high <=12.0 [facility] Comment on above: Performed By: #### M G, URIC, RENAL #### [facility] [address] [place] [address] Dr. Hari Palmer UR PROT CREAT RAT 0.54 Normal [facility] Comment on above: Performed By: #### M G, URIC, RENAL #### [facility] [address] [place] [address] Dr. Hari Palmer URINE CREAT 59.03 mg/dL Normal 20.00-300.00 [facility] Comment on above: Performed By: #### M G, URIC, RENAL #### [facility] [address] [place] [address] Dr. Hari Palmer VITAMIN D 25 OHon 12-03-2021 VIT D 25-OH 38.1 ng/mL Normal [facility] Comment on above: Performed By: #### M G, URIC, RENAL #### [facility] [address] [place] [address] Dr. Hari Palmer VIT D RANGES SEE BELOW Normal [facility] Comment on above: Result Comment: <20 ng/mL Vit D deficient 20 - <30 ng/mL Vit D insufficient 30 - 100 ng/mL Vit D sufficient >100 ng/mL Potential Toxicity Performed By: #### M G, URIC, RENAL #### [facility] [address] [address] [address] Hari Palmre PTH INTACTon 09-03-2021 PTH, Intact 177 pg/mL Critically high 15-65 [facility] Comment on above: Performed By: #### P THINT #### [facility] [address] [address] [address] Hari Palmer CBC AUTO DIFFon 09-01-2021 BASO # 0.1 103/ul Normal 0.0-0.1 [facility] Comment on above: Performed By: #### M G, URIC, RENAL #### [facility] [address] [address] [address] Hari Palmer Basophils/100 WBC (Bld) 0.6 % Normal 0.2-2.0 [facility] Comment on above: Performed By: #### M G, URIC, RENAL #### [facility] [address] [address] [address] Hari Palmer EO # 0.3 103/ul Normal 0.0-0.7 [facility] Comment on above: Performed By: #### M G, URIC, RENAL #### [facility] [address] [address] [address] Hari Palmer Eosinophils/100 WBC (Bld) 3.5 % Normal 0.9-7.0 [facility] Comment on above: Performed By: #### M G, URIC, RENAL #### [facility] [address] [address] [address] Hari Palmer Erythrocyte distribution width (RBC) [Ratio] 13.8 % Normal 11.0-15.0 [facility] Comment on above: Performed By: #### M G, URIC, RENAL #### [facility] [address] [address] [address] Hari Pamler Hematocrit (Bld) [Volume fraction] 32.8 % Critically low 36.0-48.0 [facility] Comment on above: Performed By: #### M G, URIC, RENAL #### [facility] [address] [place] [address] Dr. Hari Palmer Hemoglobin (Bld) [Mass/Vol] 10.6 g/dL Critically low 12.0-16.0 [facility] Comment on above: Performed By: #### M G, URIC, RENAL #### [facility] [address] [place] [address] Dr. aHri Palmer IG # 0.14 10e3/ul Critically high 0.00-0.03 [facility] Comment on above: Performed By: #### M G URIC, RENAL #### [facility] [address] [place] [address] Dr. Hari Palmer IG % 1.5 % Critically high 0.0-0.5 [facility] Comment on above: Performed By: #### M G, URIC, RENAL #### [facility] [address] [place] [address] Dr. Hari Palmer LYMPH # 1.8 103/ul Normal 1.2-3.8 [facility] Comment on above: Performed By: #### M G, URIC, RENAL #### [facility] [address] [place] [address] Dr. Hari Palmer Lymphocytes/100 WBC (Bld) 19.3 % Critically low 20.5-60.0 [facility] Comment on above: Performed By: #### M G, URIC, RENAL #### [facility] [address] [place] [address] Dr. Hari Palmer MANUAL DIFF REQ NO Normal [facility] Comment on above: Performed By: #### M G, URIC, RENAL #### [facility] [address] [place] [address] Dr. Hari Palmer MCH (RBC) [Entitic mass] 31.4 pg Normal 26.7-34.0 [facility] Comment on above: Performed By: #### M G, URIC, RENAL #### [facility] [address] [place] [address] Dr. Hari Palmer MCHC (RBC) [Mass/Vol] 32.3 g/dL Normal 29.9-35.2 [facility] Comment on above: Performed By: #### M G, URIC, RENAL #### [facility] [address] [place] [address] Dr. Hari Palmer MCV (RBC) [Entitic vol] 97.0 fL Normal 81.0-99.0 [facility] Comment on above: Performed By: #### M G, URIC, RENAL #### [facility] [address] [place] [address] Dr. Hari Palmer MONO # 0.4 103/ul Normal 0.3-0.8 [facility] Comment on above: Performed By: #### M G, URIC, RENAL #### [facility] [address] [place] [address] Dr. Hari Palmer Monocytes/100 WBC (Bld) 4.2 % Normal 1.7-12.0 [facility] Comment on above: Performed By: #### M G, URIC, RENAL #### [facility] [address] [place] [address] Dr. Hari Palmer NEUT # 6.5 103/ul Normal 1.4-6.5 [facility] Comment on above: Performed By: #### M G, URIC, RENAL #### [facility] [address] [place] [address] Dr. Hari Palmer Neutrophils/100 WBC (Bld) 70.9 % Normal 43.0-75.0 [facility] Comment on above: Performed By: #### M G, URIC, RENAL #### [facility] [address] [place] [address] Dr. Hari Palmer Platelet mean volume (Bld) [Entitic vol] 9.0 fL Critically low 9.5-13.5 [facility] Comment on above: Performed By: #### M G, URIC, RENAL #### [facility] [address] [place] [address] Dr. Hari Palmer PLT 289 103/ul Normal 150-450 [facility] Comment on above: Performed By: #### M G, URIC, RENAL #### [facility] [address] [place] [address] Dr. Hari Palmer RBC 3.38 106/ul Critically low 4.20-5.40 [facility] Comment on above: Performed By: #### M G, URIC, RENAL #### [facility] [address] [place] [address] Dr. Hari Palmer WBC 9.1 103/ul Normal 4.0-11.0 [facility] Comment on above: Performed By: #### M G, URIC, RENAL #### [facility] [address] [place] [address] Dr. Hari Palmer FERRITINon 09-01-2021 Ferritin [Mass/Vol] 204.0 ng/mL Critically high 6.2-137.0 [facility] Comment on above: Performed By: #### M G, URIC, RENAL #### [facility] [address] [place] [address] Dr. Hari Palmer IRON AND TIBCon 09-01-2021 % SATURATION 28.4 % Normal [facility] Comment on above: Performed By: #### M G, URIC, RENAL #### [facility] [address] [place] [address] Dr. Hari Palmer Iron [Mass/Vol] 80.0 ug/dL Normal 37.0-170.0 [facility] Comment on above: Performed By: #### M G, URIC, RENAL #### [facility] [address] [place] [address] Dr. Hari Palmer TIBC DIRECT 282.0 ug/dL Normal 261.0-497.0 [facility] Comment on above: Performed By: #### M G, URIC, RENAL #### [facility] [address] [place] [address] Dr. Hari Palmer MAGNESIUMon 09-01-2021 Magnesium [Mass/Vol] 2.2 mg/dL Normal 1.6-2.3 [facility] Comment on above: Performed By: #### U AMIC #### [facility] [address] [place] [address] Dr. Hari Palmer RENAL FUNCTION PANELon 09-01 Albumin [Mass/Vol] 3.5 g/dL Normal 3.5-5.0 [facility] Comment on above: Performed By: #### M G, URIC, RENAL #### [facility] [address] [place] [address] Dr. Hari Palmer Calcium [Mass/Vol] 8.7 mg/dL Normal 8.4-10.2 [facility] Comment on above: Performed By: #### M G, URIC, RENAL #### [facility] [address] [address] [address] Hari Palmer Chloride [Moles/Vol] 105 mmol/L Normal 98-107 [facility] Comment on above: Performed By: #### M G, URIC, RENAL #### [facility] [address] [place] [address] Dr. Hari Palmer CO2 [Moles/Vol] 21.1 mmol/L Critically low 22.0-30.0 [facility] Comment on above: Performed By: #### M G, URIC, RENAL #### [facility] [address] [address] [address] Hari Palmer Creatinine [Mass/Vol] 3.63 mg/dL Critically high 0.52-1.04 [facility] Comment on above: Performed By: #### M G, URIC, RENAL #### [facility] [address] [place] [address] Dr. Hari Palmer EGFR-AF VIET[place] 16 mL/min/1.73m2 Critically low >=60 [facility] Comment on above: Performed By: #### M G, URIC, RENAL #### [facility] [address] [place] [address] Dr. Hari Palmer EGFR-NON AF [place]ESE 14 mL/min/1.73m2 Critically low >=60 [facility] Comment on above: Performed By: #### M G, URIC, RENAL #### [facility] [address] [place] [address] Dr. Hari Palmer Glucose [Mass/Vol] 115 mg/dL Critically high 74-106 [facility] Comment on above: Performed By: #### M G, URIC, RENAL #### [facility] [address] [place] [address] Dr. Hari Palmer Phosphate [Mass/Vol] 4.6 mg/dL Critically high 2.5-4.5 [facility] Comment on above: Performed By: #### M G, URIC, RENAL #### [facility] [address] [place] [address] Dr. Hari Palmer Potassium [Moles/Vol] 4.2 mmol/L Normal 3.4-5.0 [facility] Comment on above: Performed By: #### M G, URIC, RENAL #### [facility] [address] [place] [address] Dr. Hari Palmer Sodium [Moles/Vol] 138 mmol/L Normal 137-145 [facility] Comment on above: Performed By: #### M G, URIC, RENAL #### [facility] [address] [place] [address] Dr. Hari Palmer Urea nitrogen [Mass/Vol] 50.0 mg/dL Critically high 7.0-17.0 [facility] Comment on above: Performed By: #### M G, URIC, RENAL #### [facility] [address] [place] [address] Dr. Hari Palmer UA RANDOM W/MICROSCOPICon BACTERIA SMALL Abnormal NONE SEEN [facility] Comment on above: Performed By: #### U AMIC #### [facility] [address] [place] [address] Dr. Hari Palmer Bilirubin Ql (U) Negative Normal NEGATIVE [facility] Comment on above: Performed By: #### U AMIC #### [facility] [address] [place] [address] Dr. Hari Palmer CAST NONE SEEN Normal NONE SEEN [facility] Comment on above: Performed By: #### U AMIC #### [facility] [address] [place] [address] Dr. Hari Palmer Clarity (U) CLEAR Normal CLEAR [facility] Comment on above: Performed By: #### U AMIC #### [facility] [address] [address] [address] Hari Palmer Color (U) LT. YELLOW Normal YELLOW [facility] Comment on above: Performed By: #### U AMIC #### [facility] [address] [place] [address] Dr. Hari Palmer Crystals LM Nom (Urine sed) NONE SEEN Normal NONE SEEN [facility] Comment on above: Performed By: #### U AMIC #### [facility] [address] [address] [address] Hari Palmer Epithelial cells LM Ql (Urine sed) MODERATE Abnormal NONE SEEN /RARE [facility] Comment on above: Performed By: #### U AMIC #### [facility] [address] [place] [address] Dr. Hari Palmer Glucose Ql (U) Negative Normal NEGATIVE [facility] Comment on above: Performed By: #### U AMIC #### [facility] [address] [place] [address] Dr. Hari Palmer Hemoglobin Ql (U) TRACE-INTACT Abnormal NEGATIVE [facility] Comment on above: Performed By: #### U AMIC #### [facility] [address] [place] [address] Dr. Hari Palmer Ketones Ql (U) Negative Normal NEGATIVE [facility] Comment on above: Performed By: #### U AMIC #### [facility] [address] [address] [address] Hari Palmer LEUKOCYTES Negative Normal NEGATIVE [facility] Comment on above: Performed By: #### U AMIC #### [facility] [address] [place] [address] Dr. Hari Palmer MUCOUS NONE SEEN Normal NONE SEEN [facility] Comment on above: Performed By: #### U AMIC #### [facility] [address] [place] [address] Dr. Hari Palmer Nitrite Ql (U) Negative Normal NEGATIVE [facility] Comment on above: Performed By: #### U AMIC #### [facility] [address] [place] [address] Dr. Hari Palmer pH (U) 6.0 [pH] Normal 5-9 [facility] Comment on above: Performed By: #### U AMIC #### [facility] [address] [place] [address] Dr. Hari Palmer RBC 2-5 Abnormal 0-2 [facility] Comment on above: Performed By: #### U AMIC #### [facility] [address] [address] [address] Hari Palmer SPEC GRAVITY 1.010 Normal 1.005-<=1.02 5 [facility] Comment on above: Performed By: #### U AMIC #### [facility] [address] [address] [address] Hari Palmer UA PROTEIN Negative Normal NEGATIVE/ TRACE [facility] Comment on above: Performed By: #### U AMIC #### [facility] [address] [place] [address] Dr. Hari Palmer Urobilinogen Qn (U) 0.2 {Janice'U}/dL Normal 0.2 - 1. 0 [facility] Comment on above: Performed By: #### U AMIC #### [facility] [address] [address] [address] Hari Palmer WBC 2-5 Abnormal NONE SEEN [facility] Comment on above: Performed By: #### U AMIC #### [facility] [address] [place] [address] Dr. Hari Palmer URIC ACID SERUMon 09-01-2021 Urate [Mass/Vol] 4.9 mg/dL Normal 2.5-6.2 [facility] Comment on above: Performed By: #### U AMIC #### [facility] [address] [place] [address] Dr. Hari Palmer URINE T PROTEIN CREAT RATIOo n 09-01-2021 Protein (U) [Mass/Vol] 22.2 mg/dL Critically high <=12.0 [facility] Comment on above: Performed By: #### M G, URIC, RENAL #### [facility] [address] [place] [address] Dr. Hari Palmer UR PROT CREAT RAT 0.47 Normal [facility] Comment on above: Performed By: #### M G, URIC, RENAL #### [facility] [address] [address] [address] Hari Palmer URINE CREAT 46.89 mg/dL Normal 20.00-300.00 [facility] Comment on above: Performed By: #### M G, URIC, RENAL #### [facility] [id number] Hari Palmer VITAMIN D 25 OHon 09-01-2021 VIT D 25-OH 40.5 ng/mL Normal [facility] Comment on above: Performed By: #### M G, URIC, RENAL #### [facility] [address] [place] [address] Dr. Hari Palmer VIT D RANGES SEE BELOW Normal [facility] Comment on above: Result Comment: <20 ng/mL Vit D deficient 20 - <30 ng/mL Vit D insufficient 30 - 100 ng/mL Vit D sufficient >100 ng/mL Potential Toxicity Performed By: #### M G, URIC, RENAL #### [facility] [address] [address] [address] Hari Palmer CNOVon 03-30-2021 JERONIMO Office Visit (NEPHMN ) ----- MANDEEP PURI ([id number]) 1975 F Date Time Provider Department 03/30/21 9:20 AM PERRI BARRETT NEPHMN During your visit today, we recorded the following information about you: Temperature Pulse Blood pressure Weight 98.2 degrees 75/minute 122/77 93 kg Height 1.549 m Perri Barrett MD 03/30/2021 10:25 AM Signed Mrs. 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 (more content not included)... Normal [facility] Urinalysison 03-30-2021 Bilirubin, Urine Negative Normal Negative [facility] [place] Comment on above: Performed By: #### U A #### [id number] [address] Clarity (U) Clear Normal Clear [facility] Comment on above: Performed By: #### U A #### [id number] [address] Color (U) Colorless Critically abnormal Yellow [facility] Comment on above: Performed By: #### U A #### [id number] [address] Comments SEE COMMENT Normal [facility] Comment on above: Result Comment: Micr oscopic not warranted Performed By: #### U A #### [facility] [address] [address] Glucose Ql (U) Trace Critically abnormal Negative [facility] Comment on above: Performed By: #### U A #### [facility] [address] [place], [place] [address] Hemoglobin/Blood,Ur Negative Normal Negative [facility] Comment on above: Performed By: #### U A #### [facility] [address] [address] Ketones Ql (U) Negative Normal Negative [facility] Comment on above: Performed By: #### U A #### [id number] [place] [id number] Leukest Negative Normal Negative [facility] Comment on above: Performed By: #### U A #### [id number] [address] Nitrite Ql (U) Negative Normal Negative [facility] Comment on above: Performed By: #### U A #### [address] [address] pH (U) 6.5 [pH] Normal 5.0-8.0 [facility] Comment on above: Performed By: #### U A #### [address] [address] Protein, Urine Negative Normal Negative [facility] Comment on above: Performed By: #### U A #### [id number] Specific [place], Ur 1.008 Normal 1.005-1.030 [facility] Comment on above: Performed By: #### U A #### [id number] [place] [id number] Urine Codi Comment SEE COMMENT Normal [facility] Comment on above: Result Comment: N/A Performed By: #### U A #### [id number] [place], [place] [address] Urobilinogen (U) [Mass/Vol] Negative Normal Negative [facility] Comment on above: Performed By: #### U A #### [address] [address] Coding Summary.on 04-21-2020 Coding Summary. CODING DATE: 020 FINAL [facility] STATUS: Home (Routine DC) PAYOR: Medical [place] ADMIT DX: REASON FOR VISIT DX: [phone] [...] CphT Date Saved: 04/21/2020 05:17 pm Normal [facility] Physician Orderon 04-21-2020 Physician Order [id number] Normal [facility] Marci 04-12-2020 ALT [Catalytic activity/Vol] 14 U/L Normal 7 - 45 [facility] Comment on above: Result Comment: Kelsea ents treated with Sulfasalazine may generate falsely decreased results for ALT. Performed By: #### A LT #### [facility] [address] [place] [address] Ronald 04-12-2020 AST [Catalytic activity/Vol] 16 U/L Normal 9 - 39 [facility] Comment on above: Performed By: #### A ST #### [facility] [address] [place] [address] CREATININEon 04-12-2020 Creatinine [Mass/Vol] 2.83 mg/dL High 0.50 - 1.05 [facility] Comment on above: Performed By: #### C REAT #### [facility] [address] [place] [address] Creatinine [Mass/Vol] 18 mL/min/1.73m2 Abnormal >60 [facility] Comment on above: Performed By: #### C REAT #### [facility] [address] [place] [address] Creatinine [Mass/Vol] 22 mL/min/1.73m2 Abnormal >60 [facility] Comment on above: Result Comment: CALC ULATIONS OF ESTIMATED GFR ARE PERFORMED USING THE MDRD STUDY EQUATION FOR THE IDMS-TRACEABLE CREATININE METHODS. CLIN CHEM 2007;53:766-72 Performed By: #### C REAT #### [facility] [address] [place] [address] URIC ACIDon 04-12-2020 Urate [Mass/Vol] 5.2 mg/dL Normal 2.3 - 6.7 [facility] Comment on above: Result Comment: Beti puncture immediately after or during the administration of Metamizole may lead to falsely low results. Testing should be performed immediately prior to Metamizole dosing. Performed By: #### U DICK #### [facility] [address] [place] [address] URIC ACIDon 02-11-2020 Urate [Mass/Vol] 8.2 mg/dL High 2.3 - 6.7 [facility] Comment on above: Result Comment: Beti puncture immediately after or during the administration of Metamizole may lead to falsely low results. Testing should be performed immediately prior to Metamizole dosing. Performed By: #### U DICK #### [facility] [address] [place] [address] Cult,Urineon 08-04-2019 Cult,Urine Specimen Description .CLEAN CATCH URINE Special Requests NOT REPORTED Culture ESCHERICHIA COLI >[id number] CFU/ML Report Status FINAL 08/04/2019 SUSCEPTIBILITY Organism [...] Trimethoprim/Sulfa <=20 SUSCEPTIBLE Piperacillin/Tazobactam <=4 SUSCEPTIBLE Normal [facility] Comment on above: Performed By: #### D CITLALY, LIP, CMPX, TROPI, BNP, CDP, PT #### [facility] [address] [place] [address] Grinder Operator: Sami Dominguez MD Brain Natri. Peptideon 08-02 Natriuretic peptide B (Bld) [Mass/Vol] 152 pg/mL Normal <300 [facility] Comment on above: Result Comment: Pro- BNP results cannot be compared to BNP results. Performed By: #### D CITLALY, LIP, CMPX, TROPI, BNP, CDP, PT #### [facility] [address] [place] [address] Grinder Operator: Sami Dominguez MD Natriuretic peptide B (Bld) [Mass/Vol] Pro-BNP Reference Range: Normal [facility] Comment on above: Result Comment: Rule Out: <300 Parra Zone: Age <50 300-450 Age 50-75 300-900 Age >75 300-1800 Usually represents mild to moderate HF but other cardiopulmonary causes cannot be ruled out. Rule In: Age <50 >450 Age 50-75 >900 Age >75 >1800 Performed By: #### D CITLALY, LIP, CMPX, TROPI, BNP, CDP, PT #### [facility] [address] [place] [address] Grinder Operator: Sami Dominguez MD Brain Natriuretic Peptideon 08-02-2019 Natriuretic peptide B (Bld) [Mass/Vol] 152 pg/mL <300 [place] Comment on above: Pro-BNP results eric ot be compared to BNP results. Natriuretic peptide B (Bld) [Mass/Vol] Pro-BNP Reference Range: [place] Comment on above: Rule Out: <300 Parra Zone: Age <50 300-450 Age 50-75 300-900 Age >75 300-1800 Usually represents mild to moderate HF but other cardiopulmonary causes cannot be ruled out. Rule In: Age <50 >450 Age 50-75 >900 Age >75 >1800 CBC Auto Differentialon - Basophils (Bld) [#/Vol] 0.00 10*3/uL [place] Basophils/100 WBC (Bld) 0 % 0 - 2 % [place] Differential Type NOT REPORTED [place] Eosinophils (Bld) [#/Vol] 0.08 10*3/uL [place] Eosinophils/100 WBC (Bld) 1 % 1 - 4 % [place] Erythrocyte distribution width (RBC) [Ratio] 13.2 % 11.8 - 14.4 % [place] Hematocrit (Bld) [Volume fraction] 33.7 % Low 36.3 - 47.1 % [place] Hemoglobin (Bld) [Mass/Vol] 10.7 g/dL Low 11.9 - 15.1 g/dL [place] Immature granulocytes (Bld) [#/Vol] 0 % 0 [place] Immature granulocytes (Bld) [#/Vol] 0.00 10*3/uL [place] Interpretation and review of laboratory results Abnormal [place] Lymphocytes (Bld) [#/Vol] 0.90 10*3/uL Low [place] Lymphocytes/100 WBC (Bld) 12 % Low 24 - 43 % [place] MCH (RBC) [Entitic mass] 30.2 pg 25.2 - 33.5 pg [place] MCHC (RBC) [Mass/Vol] 31.8 g/dL 28.4 - 34.8 g/dL [place] MCV (RBC) [Entitic vol] 95.2 fL 82.6 - 102.9 fL [place] Monocytes (Bld) [#/Vol] 0.00 10*3/uL Low [place] Monocytes/100 WBC (Bld) 0 % Low 3 - 12 % [place] Morphology Geovany (Bld) [Interp] Normal [place] Platelet mean volume (Bld) [Entitic vol] 8.6 fL 8.1 - 13.5 fL [place] Platelets (Bld) [#/Vol] NOT REPORTED [place] Platelets (Bld) [#/Vol] 335 10*3/uL [place] RBC (Bld) [#/Vol] 3.54 10*6/uL Low 3.95 - 5.1 1 m/uL [place] RBC morphology finding Nom (Bld) NOT REPORTED [place] Segmented neutrophils/100 WBC (Bld) 87 % High 36 - 65 % [place] Segs Absolute 6.52 [place] WBC (Bld) [#/Vol] 7.5 10*3/uL [place] WBC (Bld) [#/Vol] 0.0 10*3/uL 0.0 per 10 0 WBC [place] WBC Morphology NOT REPORTED [place] CBC with Diffon 08-02-2019 Abs. Basophil 0.00 k/uL Normal 0.0-0.2 [facility] Comment on above: Performed By: #### D CITLALY, LIP, CMPX, TROPI, BNP, CDP, PT #### [address] [place] [address] Grinder Operator: Sami Dominguez MD Abs.Imm.Granulocyte 0.00 k/uL Normal 0.00-0.30 [facility] Comment on above: Performed By: #### D CITLALY, LIP, CMPX, TROPI, BNP, CDP, PT #### [address] [place] [address] Grinder Operator: Sami Dominguez MD Abs.Neutrophil (Seg) 6.52 k/uL Normal 1.50-8.10 [facility] Comment on above: Performed By: #### D CITLALY, LIP, CMPX, TROPI, BNP, CDP, PT #### [address] [place] [address] Grinder Operator: Sami Dominguez MD Basophils/100 WBC (Bld) 0 % Normal 0-2 [facility] Comment on above: Performed By: #### D CITLALY, LIP, CMPX, TROPI, BNP, CDP, PT #### [address] [place] [address] Grinder Operator: Sami Dominguez MD Eosinophils (Bld) [#/Vol] 0.08 10*3/uL Normal 0.00-0.44 [facility] Comment on above: Performed By: #### D CITLALY, LIP, CMPX, TROPI, BNP, CDP, PT #### [facility] [address] [place], [place] [address] Grinder Operator: Sami Dominguez MD Eosinophils/100 WBC (Bld) 1 % Normal 1-4 [facility] Comment on above: Performed By: #### D CITLALY, LIP, CMPX, TROPI, BNP, CDP, PT #### [facility] [address] [place], [place] [address] Grinder Operator: Sami Dominguez MD Immature granulocytes (Bld) [#/Vol] 0 % Normal 0 [facility] Comment on above: Performed By: #### D CITLALY, LIP, CMPX, TROPI, BNP, CDP, PT #### [facility] [address] [place], [id number] Grinder Operator: Sami Dominguez MD Lymphocytes (Bld) [#/Vol] 0.90 10*3/uL Low 1.10-3.70 [facility] Comment on above: Performed By: #### D CITLALY, LIP, CMPX, TROPI, BNP, CDP, PT #### [facility] [address] [place], [place] [address] Grinder Operator: Sami Dominguez MD Lymphocytes/100 WBC (Bld) 12 % Low 24-43 [facility] Comment on above: Performed By: #### D CITLALY, LIP, CMPX, TROPI, BNP, CDP, PT #### [facility] [address] [place], [id number] Grinder Operator: Sami Dominguez MD Monocytes (Bld) [#/Vol] 0.00 10*3/uL Low 0.10-1.20 [facility] Comment on above: Performed By: #### D CITLALY, LIP, CMPX, TROPI, BNP, CDP, PT #### [facility] [address] [place], [id number] Grinder Operator: Sami Dominguez MD Monocytes/100 WBC (Bld) 0 % Low 3-12 [facility] Comment on above: Performed By: #### D CITLALY, LIP, CMPX, TROPI, BNP, CDP, PT #### [facility] [address] [place], [id number] Grinder Operator: Sami Dominguez MD Morphology Geovany (Bld) [Interp] Normal Normal [facility] Comment on above: Performed By: #### D CITLALY, LIP, CMPX, TROPI, BNP, CDP, PT #### [address] [place], [id number] Grinder Operator: Sami Dominguez MD Neutrophil (Seg) 87 % High 36-65 [facility] Comment on above: Performed By: #### D CITLALY, LIP, CMPX, TROPI, BNP, CDP, PT #### [address] [place], [id number] Grinder Operator: Sami Dominguez MD Erythrocyte distribution width (RBC) [Ratio] 13.2 % Normal 11.8-14.4 [facility] Comment on above: Performed By: #### D CITLALY, LIP, CMPX, TROPI, BNP, CDP, PT #### [address] [place], [id number] Grinder Operator: Sami Dominguez MD Hematocrit (Bld) [Volume fraction] 33.7 % Low 36.3-47.1 [facility] Comment on above: Performed By: #### D CITLALY, LIP, CMPX, TROPI, BNP, CDP, PT #### [facility] [address] [place], [id number] Grinder Operator: Sami Dominguez MD Hemoglobin (Bld) [Mass/Vol] 10.7 g/dL Low 11.9-15.1 [facility] Comment on above: Performed By: #### D CITLALY, LIP, CMPX, TROPI, BNP, CDP, PT #### [facility] [address] [place] [address] Grinder Operator: Sami Dominguez MD MCH (RBC) [Entitic mass] 30.2 pg Normal 25.2-33.5 [facility] Comment on above: Performed By: #### D CITLALY, LIP, CMPX, TROPI, BNP, CDP, PT #### [facility] [address] [place], [id number] Grinder Operator: Sami Dominguez MD MCHC (RBC) [Mass/Vol] 31.8 g/dL Normal 28.4-34.8 [facility] Comment on above: Performed By: #### D CITLALY, LIP, CMPX, TROPI, BNP, CDP, PT #### [address] [place], [id number] Grinder Operator: Sami Dominguez MD MCV (RBC) [Entitic vol] 95.2 fL Normal 82.6-102.9 [facility] Comment on above: Performed By: #### D CITLALY, LIP, CMPX, TROPI, BNP, CDP, PT #### [address] [place], [id number] Grinder Operator: Sami Dominguez MD NRBC Automated 0.0 per 100 WBC Normal 0.0 [facility] Comment on above: Performed By: #### D CITLALY, LIP, CMPX, TROPI, BNP, CDP, PT #### [address] [place] [address] Grinder Operator: Sami Dominguez MD Platelet mean volume (Bld) [Entitic vol] 8.6 fL Normal 8.1-13.5 [facility] Comment on above: Performed By: #### D CITLALY, LIP, CMPX, TROPI, BNP, CDP, PT #### [facility] [address] [place], [place] [address] Grinder Operator: Sami Dominguez MD Platelets (Bld) [#/Vol] 335 10*3/uL Normal 138-453 [facility] Comment on above: Performed By: #### D CITLALY, LIP, CMPX, TROPI, BNP, CDP, PT #### [facility] [address] [place], [id number] Grinder Operator: Sami Dominguez MD RBC (Bld) [#/Vol] 3.54 10*6/uL Low 3.95-5.11 [facility] Comment on above: Performed By: #### D CITLALY, LIP, CMPX, TROPI, BNP, CDP, PT #### [facility] [address] [place], [place] [address] Grinder Operator: Sami Dominguez MD WBC (Bld) [#/Vol] 7.5 10*3/uL Normal 3.5-11.3 [facility] Comment on above: Performed By: #### D CITLALY, LIP, CMPX, TROPI, BNP, CDP, PT #### [facility] [address] [place], [id number] Grinder Operator: Sami Dominguez MD Auto Diff Performed NOT REPORTED Normal [facility] Comment on above: Performed By: #### D CITLALY, LIP, CMPX, TROPI, BNP, CDP, PT #### [facility] [address] [place], [id number] Grinder Operator: Sami Dominguez MD Platelets (Bld) [#/Vol] NOT REPORTED Normal [facility] Comment on above: Performed By: #### D CITLALY, LIP, CMPX, TROPI, BNP, CDP, PT #### [facility] [address] [place], [id number] Grinder Operator: Sami Dominguez MD RBC morphology finding Nom (Bld) NOT REPORTED Normal [facility] Comment on above: Performed By: #### D CITLALY, LIP, CMPX, TROPI, BNP, CDP, PT #### [facility] [address] [place], [place] [id number] Grinder Operator: Sami Dominguez MD WBC Morphology NOT REPORTED Normal [facility] Comment on above: Performed By: #### D CITLALY, LIP, CMPX, TROPI, BNP, CDP, PT #### [facility] [address] [place] [address] Grinder Operator: Sami Dominguez MD CTA CHEST ABDOMEN PELVIS [...] Yunier Yang MD 08/02/19 Final result Normal [facility] [place] Incoming Radiant Results From [employer] - 08/02/2019 1:21 PM EDT EXAMINATION: CTA [...] recommended. Reference: J Am Danika Radiol 2013;10:675-681 [place], [place] EXAMINATION: CTA OF THE CHEST, ABDOMEN [...] and caliber without aneurysmal dilatation or dissection. [place] No evidence for aneurysmal dilatation or dissection of the aorta or its branches. Findings most compatible with polycystic kidney disease. Subtle inflammation adjacent to the descending colon is suggestive of subtle colitis. No perforation or abscess formation. No free intraperitoneal air or fluid. 4.1 cm benign appearing ovarian cyst No follow-up imaging is recommended. Reference: J Am Danika Radiol 2013;10:675-681 [place], [place] Comp Metabolic Pr/rfx MGon 1 (cont.) Normal [facility] Comment on above: Result Comment: Aver age GFR for 40-49 years old: 99 mL/min/1.73sq m Chronic Kidney Disease: <60 mL/min/1.73sq m Kidney failure: <15 mL/min/1.73sq m eGFR calculated using average adult body mass. Additional eGFR calculator available at: http://www.[employer]/multiple_crcl_2012.htm Performed By: #### D CITLALY, LIP, CMPX, TROPI, BNP, CDP, PT #### [facility] [address] [place] [address] [place] [address] Grinder Operator: Sami Dominguez MD Albumin [Mass/Vol] 4.4 g/dL Normal 3.5-5.2 [facility] Comment on above: Performed By: #### D CITLALY, LIP, CMPX, TROPI, BNP, CDP, PT #### [facility] [address] [place] [address] Grinder Operator: Sami Dominguez MD Albumin/Globulin [Mass ratio] 1.0 {ratio} Normal 1.0-2.5 [facility] Comment on above: Performed By: #### D CITLALY, LIP, CMPX, TROPI, BNP, CDP, PT #### [facility] [address] [place] [address] Grinder Operator: Sami Dominguez MD Alkaline Phos 98 U/L Normal 35-104 [facility] Comment on above: Performed By: #### D CITLALY, LIP, CMPX, TROPI, BNP, CDP, PT #### [facility] [address] [place], [place] [id number] Grinder Operator: Sami Dominguez MD ALT [Catalytic activity/Vol] 16 U/L Normal 5-33 [facility] Comment on above: Performed By: #### D CITLALY, LIP, CMPX, TROPI, BNP, CDP, PT #### [facility] [address] [place], [place] [id number] Grinder Operator: Sami Dominguez MD Anion gap [Moles/Vol] 18 mmol/L High 9-17 [facility] Comment on above: Performed By: #### D CITLALY, LIP, CMPX, TROPI, BNP, CDP, PT #### [facility] [address] [place], [place] [id number] Grinder Operator: Sami Dominguez MD AST [Catalytic activity/Vol] 18 U/L Normal <32 [facility] Comment on above: Performed By: #### D CITLALY, LIP, CMPX, TROPI, BNP, CDP, PT #### [facility] [address] [place], [place] [id number] Grinder Operator: Sami Dominguez MD Bilirubin Ql (U) 0.31 mg/dL Normal 0.3-1.2 [facility] Comment on above: Performed By: #### D CITLALY, LIP, CMPX, TROPI, BNP, CDP, PT #### [facility] [address] [place], [place] [id number] Grinder Operator: Sami Dominguez MD BUN/CRE Ratio 13 Normal 9-20 [facility] Comment on above: Performed By: #### D CITLALY, LIP, CMPX, TROPI, BNP, CDP, PT #### [facility] [address] [place], [place] [id number] Grinder Operator: Sami Dominguez MD Calcium [Mass/Vol] 9.7 mg/dL Normal 8.6-10.4 [facility] Comment on above: Performed By: #### D CITLALY, LIP, CMPX, TROPI, BNP, CDP, PT #### [facility] [address] [place] [address] Grinder Operator: Sami Dominguez MD Chloride [Moles/Vol] 95 mmol/L Low 98-107 [facility] Comment on above: Performed By: #### D CITLALY, LIP, CMPX, TROPI, BNP, CDP, PT #### [facility] [address] [place] [address] Grinder Operator: Sami Dominguez MD CO2 [Moles/Vol] 18 mmol/L Low 20-31 [facility] Comment on above: Performed By: #### D CITLALY, LIP, CMPX, TROPI, BNP, CDP, PT #### [facility] [address] [place] [address] Grinder Operator: Sami Dominguez MD Creatinine [Mass/Vol] 3.07 mg/dL High 0.50-0.90 [facility] Comment on above: Performed By: #### D CITLALY, LIP, CMPX, TROPI, BNP, CDP, PT #### [facility] [address] [place], [place] [id number] Grinder Operator: Sami Dominguez MD GFR, Amer 20 mL/min Low >60 [facility] Comment on above: Performed By: #### D CITLALY, LIP, CMPX, TROPI, BNP, CDP, PT #### [facility] [address] [place] [address] Grinder Operator: Sami Dominguez MD GFR,non Amer 17 mL/min Low >60 [facility] Comment on above: Performed By: #### D CITLALY, LIP, CMPX, TROPI, BNP, CDP, PT #### [facility] [address] [place] [address] Grinder Operator: Sami Dominguez MD Glucose [Mass/Vol] 89 mg/dL Normal 70-99 [facility] Comment on above: Performed By: #### D CITLALY, LIP, CMPX, TROPI, BNP, CDP, PT #### [facility] [address] [place] [address] Grinder Operator: Sami Dominguez MD Potassium [Moles/Vol] 3.9 mmol/L Normal 3.7-5.3 [facility] Comment on above: Performed By: #### D CITLALY, LIP, CMPX, TROPI, BNP, CDP, PT #### [facility] [address] [place], [place] [id number] Grinder Operator: Sami Dominguez MD Protein [Mass/Vol] 8.8 g/dL High 6.4-8.3 [facility] Comment on above: Performed By: #### D CITLALY, LIP, CMPX, TROPI, BNP, CDP, PT #### [facility] [address] [place] [address] Grinder Operator: Sami Dominguez MD Sodium [Moles/Vol] 131 mmol/L Low 135-144 [facility] Comment on above: Performed By: #### D CITLALY, LIP, CMPX, TROPI, BNP, CDP, PT #### [facility] [address] [place], [place] [id number] Grinder Operator: Sami Dominguez MD Staging: Normal [facility] Comment on above: Result Comment: Stag e 1: Some kidney damage normal GFR Stage 2: Mild kidney damage GFR 60-89 Stage 3: Moderate kidney damage GFR 30-59 Stage 4: Severe kidney damage GFR 15-29 Stage 5: Severe kidney damage GFR <15 ESRD - chronic treatment by dialysis or transplant Performed By: #### D CITLALY, LIP, CMPX, TROPI, BNP, CDP, PT #### [facility] [address] [place] [address] Grinder Operator: Sami Dominguez MD Urea nitrogen [Mass/Vol] 39 mg/dL High 6-20 [facility] Comment on above: Performed By: #### D CITLALY, LIP, CMPX, TROPI, BNP, CDP, PT #### [facility] [address] [place] [address] Grinder Operator: Sami Dominguez MD Comprehensive Metabolic Pane l w/ Reflex to MGon 08-02-2019 Albumin [Mass/Vol] 4.4 g/dL 3.5 - 5.2 g/dL [place] Albumin/Globulin [Mass ratio] 1.0 {ratio} [place] ALP [Catalytic activity/Vol] 98 U/L 35 - 104 U/L [place] ALT [Catalytic activity/Vol] 16 U/L 5 - 33 U/L [place] Anion gap [Moles/Vol] 18 mmol/L High 9 - 17 mmol/L [place] AST [Catalytic activity/Vol] 18 U/L <32 [place] Bilirubin Ql (U) 0.31 mg/dL 0.3 - 1.2 mg/dL [place] Bun/Cre Ratio 13 [place] Calcium [Mass/Vol] 9.7 mg/dL 8.6 - 10. 4 mg/dL [place] Chloride [Moles/Vol] 95 mmol/L Low 98 - 10 7 mmol/L [place] CO2 [Moles/Vol] 18 mmol/L Low 20 - 31 mmol/L [place] Creatinine [Mass/Vol] 3.07 mg/dL High 0.5 - 0.9 mg/dL [place] GFR 20 mL/min Low >60 [place] GFR Non- 17 mL/min Low >60 [place] Glucose [Mass/Vol] 89 mg/dL 70 - 99 mg/dL [place] Interpretation and review of laboratory results Abnormal [place] Potassium [Moles/Vol] 3.9 mmol/L 3.7 - 5.3 mmol/L [place] Protein [Mass/Vol] 8.8 g/dL High 6.4 - 8.3 g/dL [place] Sodium [Moles/Vol] 131 mmol/L Low 135 - 144 mmol/L [place] Urea nitrogen [Mass/Vol] 39 mg/dL High 6 - 20 mg/dL [place] D-Dimer Teston 08-02-2019 D-Dimer Test 1.15 mg/L FEU High 0.19-0.50 [facility] Comment on above: Result Comment: [...] LIP, CMPX, TROPI, BNP, CDP, PT #### [facility] [address] [place] [address] Grinder Operator: Sami Dominguez MD D-Dimer, Quantitativeon 07-07 D-Dimer, Quant 1.15 High [place] Comment on above: Elevated levels of [...] Interpretation and review of laboratory results Abnormal [place] Lactate, Sepsison 08-02-2019 Lactic Acid, Sepsis 3.6 mmol/L High 0.5-1.9 [facility] Comment on above: Performed By: #### L ACDS #### [facility] [address] [place] [address] Grinder Operator: Sami Dominguez MD Lactic Acid,Sep Wbld NOT REPORTED Normal 0.5-1.9 [facility] Comment on above: Performed By: #### L ACDS #### [facility] [address] [place] [address] Grinder Operator: Sami Dominguez MD Interpretation and review of laboratory results Abnormal [place] Lactic Acid, Sepsis 3.6 mmol/L High 0.5 - 1. 9 mmol/L [place] Lactic Acid, Sepsis, Whole Blood NOT REPORTED 0.5 - 1.9 mmol/L [place] Lactic Acidon 08-02-2019 Lactate [Moles/Vol] 1.0 mmol/L Normal 0.5-2.2 [facility] Comment on above: Performed By: #### D CITLALY, LIP, CMPX, TROPI, BNP, CDP, PT #### [facility] [address] [place] [address] Grinder Operator: Sami Dominguez MD Lactate [Moles/Vol] NOT REPORTED Normal 0.7-2.1 [facility] Comment on above: Performed By: #### D CITLALY, LIP, CMPX, TROPI, BNP, CDP, PT #### [facility] [address] [place] [address] Grinder Operator: Sami Dominguez MD Lactic Acid, Plasmaon 2018 Lactate [Moles/Vol] 1 mmol/L 0.5 - 2. 2 mmol/L [place] Lactic Acid, Whole Blood NOT REPORTED 0.7 - 2.1 mmol/L [place] Lipaseon 08-02-2019 Lipase [Catalytic activity/Vol] 38 U/L Normal 13-60 [facility] Comment on above: Performed By: #### D CITLALY, LIP, CMPX, TROPI, BNP, CDP, PT #### [facility] [address] [place] [address] Grinder Operator: Sami Dominguez MD Lipase [Catalytic activity/Vol] 38 U/L 13 - 60 U/L [place] Metabolic Panelon 08-02-2019 GFR/1.73 sq M predicted among non-blacks MDRD (S/P/Bld) [Vol rate/Area] [place] Comment on above: Stage 1: Some [...] body mass. Additional eGFR calculator available at: http://www.[employer]/multiple_crcl_2012.htm Microscopic Urinalysison Amorphous, UA NOT REPORTED None [place] Bacteria, UA 1+ Abnormal None [place] Casts UA NOT REPORTED /LPF [place] Crystals UA NOT REPORTED None /HPF [place] Epithelial Cells UA 2 TO 5 [place] Interpretation and review of laboratory results Abnormal [place] Mucus, UA NOT REPORTED None [place] Other Observations UA NOT REPORTED NOT REQ. [place] RBC (U) [#/Vol] None [place] Renal Epithelial, Urine NOT REPORTED 0 /HPF [place] Trichomonas, UA NOT REPORTED None [place] WBC, UA 50 TO 100 [place] Yeast, UA NOT REPORTED None [place] - [place] PTon 08-02-2019 INR Coag (PPP) [Relative time] 1.0 {INR} Normal 0.9-1.2 [facility] Comment on above: Performed By: #### D CITLALY, LIP, CMPX, TROPI, BNP, CDP, PT #### [facility] [address] [place] [address] Grinder Operator: Sami Dominguez MD PT Coag (PPP) [Time] 10.0 s Normal 9.7-12.2 [facility] Comment on above: Performed By: #### D CITLALY, LIP, CMPX, TROPI, BNP, CDP, PT #### [facility] [address] [place], [place] [id number] Grinder Operator: Sami Dominguez MD Protime-INRon 08-02-2019 INR Coag (PPP) [Relative time] 1.0 {INR} [place], [place] PT Coag (PPP) [Time] 10 s [place], [place] Troponinon 08-02-2019 Troponin I.cardiac [Mass/Vol] ng/mL Normal <0.03 [facility] Comment on above: Result Comment: Trop onin T results cannot be compared to Troponin-I results. Performed By: #### D CITLALY, LIP, CMPX, TROPI, BNP, CDP, PT #### [facility] [address] [place] [address] Grinder Operator: Sami Dominguez MD Troponin I.cardiac [Mass/Vol] Normal [facility] Comment on above: Result Comment: [...] LIP, CMPX, TROPI, BNP, CDP, PT #### [facility] [address] [place] [address] Grinder Operator: Sami Dominguez MD Troponin I.cardiac [Mass/Vol] NOT REPORTED Normal 0-14 [facility] Comment on above: Performed By: #### D CITLALY, LIP, CMPX, TROPI, BNP, CDP, PT #### [facility] [place] [address] Grinder Operator: Sami Dominguez MD Troponin I.cardiac [Mass/Vol] [place], [place] Comment on above: Reference Range: <0.03 [...] diagnosis. Troponin T.cardiac [Mass/Vol] ug/L <0.03 ng/mL [place] Comment on above: Troponin T results c annot be compared to Troponin-I results. Troponin, High Sensitivity NOT REPORTED 0 - 14 ng/L [place] Troponin I.cardiac [Mass/Vol] ng/mL Normal <0.03 [facility] Comment on above: Result Comment: Trop onin T results cannot be compared to Troponin-I results. Performed By: #### D CITLALY, LIP, CMPX, TROPI, BNP, CDP, PT #### [address] [place] [address] Grinder Operator: Sami Dominguez MD Troponin I.cardiac [Mass/Vol] Normal [facility] Comment on above: Result Comment: [...] LIP, CMPX, TROPI, BNP, CDP, PT #### [address] [place] [address] Grinder Operator: Sami Dominguez MD Troponin I.cardiac [Mass/Vol] NOT REPORTED Normal 0-14 [facility] Comment on above: Performed By: #### D CITLALY, LIP, CMPX, TROPI, BNP, CDP, PT #### [facility] [address] [place] [address] Grinder Operator: Sami Dominguez MD Troponin I.cardiac [Mass/Vol] [place] Comment on above: Reference Range: <0.03 [...] diagnosis. Troponin T.cardiac [Mass/Vol] ug/L <0.03 ng/mL [place] Comment on above: Troponin T results c annot be compared to Troponin-I results. Troponin, High Sensitivity NOT REPORTED 0 - 14 ng/L [place] UA w/Reflex Cultureon 2018 Acetoacetic Acid,Ur Negative Normal [facility] Comment on above: Performed By: #### D CITLALY, LIP, CMPX, TROPI, BNP, CDP, PT #### [facility] [address] [place] [address] Grinder Operator: Sami Dominguez MD Bilirubin, SemiQt,Ur Negative [facility] Comment on above: Performed By: #### D CITLALY, LIP, CMPX, TROPI, BNP, CDP, PT #### [facility] [address] [place], [place] [id number] Grinder Operator: Sami Dominguez MD Color (U) YELLOW Normal [facility] Comment on above: Performed By: #### D CITLALY, LIP, CMPX, TROPI, BNP, CDP, PT #### [facility] [address] [place] [address] Grinder Operator: Sami Dominguez MD Glucose Ql (U) Negative Normal [facility] Comment on above: Performed By: #### D CITLALY, LIP, CMPX, TROPI, BNP, CDP, PT #### [facility] [address] [place] [address] Grinder Operator: Sami Dominguez MD Hemoglobin, Ur 1+ Abnormal NEG [facility] Comment on above: Performed By: #### D CITLALY, LIP, CMPX, TROPI, BNP, CDP, PT #### [facility] [address] [place], [id number] Grinder Operator: Sami Dominguez MD Leukocyte esterase Test strip Ql (U) MODERATE Abnormal NEG [facility] Comment on above: Performed By: #### D CITLALY, LIP, CMPX, TROPI, BNP, CDP, PT #### [address] [place] [address] Grinder Operator: Sami Dominguez MD Nitrite,Ur Negative Normal NEG [facility] Comment on above: Performed By: #### D CITLALY, LIP, CMPX, TROPI, BNP, CDP, PT #### [address] [place] [address] Grinder Operator: Sami Dominguez MD pH (U) 6.0 [pH] Normal 5.0-9.0 [facility] Comment on above: Performed By: #### D CITLALY, LIP, CMPX, TROPI, BNP, CDP, PT #### [address] [place], [id number] Grinder Operator: Sami Dominguez MD Protein Ql (U) TRACE Abnormal NEG [facility] Comment on above: Performed By: #### D CITLALY, LIP, CMPX, TROPI, BNP, CDP, PT #### [facility] [address] [place] [address] Grinder Operator: Sami Dominguez MD Specific gravity (U) [Rel density] 1.010 Normal 1.010-1.020 [facility] Comment on above: Performed By: #### D CITLALY, LIP, CMPX, TROPI, BNP, CDP, PT #### [facility] [address] [place] [address] Grinder Operator: Sami Dominguez MD Turbidity CLEAR Normal CLEAR [facility] Comment on above: Performed By: #### D CITLALY, LIP, CMPX, TROPI, BNP, CDP, PT #### [facility] [address] [place] [address] Grinder Operator: Sami Dominguez MD Urobilinogen,Ur Normal Normal NORM [facility] Comment on above: Performed By: #### D CITLALY, LIP, CMPX, TROPI, BNP, CDP, PT #### [facility] [address] [place] [address] Grinder Operator: Sami Dominguez MD Comment NOT REPORTED Normal [facility] Comment on above: Performed By: #### D CITLALY, LIP, CMPX, TROPI, BNP, CDP, PT #### [facility] [address] [place] [address] [place] [address] Grinder Operator: Sami Dominguez MD Urinalysis Reflex to Culture on 08-02-2019 Bilirubin Urine Negative NEGATIVE [facility], [place] Color, UA YELLOW YELLOW [place], [place] Glucose, Ur Negative NEGATIVE [place] Interpretation and review of laboratory results Abnormal [place] Ketones Ql (U) Negative NEGATIVE [place] Leukocyte esterase Test strip Ql (U) MODERATE Abnormal NEGATIVE [facility], [place] Nitrite, Urine Negative NEGATIVE [place] pH, UA 6.0 [place] Protein (U) [Mass/Vol] TRACE Abnormal NEGATIVE [facility], [place] Specific [place], UA 1.010 [facility], [place] Turbidity UA CLEAR CLEAR [place] Urinalysis Comments NOT REPORTED [facility], [place] Urine Hgb 1+ Abnormal NEGATIVE [facility], [place] Urobilinogen, Urine Normal Normal [place] Urinalysis,Microon 9 ----- Normal [facility] Comment on above: Performed By: #### D CITLALY, LIP, CMPX, TROPI, BNP, CDP, PT #### [facility] [address] [place] [address] Grinder Operator: Sami Dominguez MD Bacteria LM.HPF (Urine sed) [#/Area] 1+ Abnormal NONE [facility] Comment on above: Performed By: #### D CITLALY, LIP, CMPX, TROPI, BNP, CDP, PT #### [facility] [address] [place], [place] [id number] Grinder Operator: Sami Dominguez MD Epithelial cells LM.HPF (Urine sed) [#/Area] 2 TO 5 Normal 0-25 [facility] Comment on above: Performed By: #### D CITLALY, LIP, CMPX, TROPI, BNP, CDP, PT #### [facility] [address] [place], [place] [address] Grinder Operator: Sami Dominguez MD RBC (U) [#/Vol] None Normal 0-2 [facility] Comment on above: Performed By: #### D CITLALY, LIP, CMPX, TROPI, BNP, CDP, PT #### [facility] [address] [place], [place] [id number] Grinder Operator: Sami Dominguez MD WBC (U) [#/Vol] 50 TO 100 Normal 0-5 [facility] Comment on above: Performed By: #### D CITLALY, LIP, CMPX, TROPI, BNP, CDP, PT #### [facility] [address] [place], [place] [id number] Grinder Operator: Sami Dominguez MD Amorphous sediment LM Ql (Urine sed) NOT REPORTED Normal [facility] Comment on above: Performed By: #### D CITLALY, LIP, CMPX, TROPI, BNP, CDP, PT #### [facility] [address] [place], [place] [phone] Grinder Operator: Sami Dominguez MD Casts LM.LPF (Urine sed) [#/Area] NOT REPORTED Normal [facility] Comment on above: Performed By: #### D CITLALY, LIP, CMPX, TROPI, BNP, CDP, PT #### [facility] [address] [place] [address] Grinder Operator: Sami Dominguez MD Crystals LM Nom (Urine sed) NOT REPORTED Normal [facility] Comment on above: Performed By: #### D CITLALY, LIP, CMPX, TROPI, BNP, CDP, PT #### [facility] [address] [place] [address] Grinder Operator: Sami Dominguez MD Epithelial, Renal NOT REPORTED Normal [address] [place] [address] Comment on above: Performed By: #### D CITLALY, LIP, CMPX, TROPI, BNP, CDP, PT #### [facility] [address] [place] [address] [place] [address] Grinder Operator: Sami Dominguez MD Mucus Strands NOT REPORTED Normal [facility] Comment on above: Performed By: #### D CITLALY, LIP, CMPX, TROPI, BNP, CDP, PT #### [address] [place] [address] Grinder Operator: Sami Dominguez MD Other Observations NOT REPORTED Normal [facility] Comment on above: Performed By: #### D CITLALY, LIP, CMPX, TROPI, BNP, CDP, PT #### [facility] [address] [place] [address] Grinder Operator: Sami Dominguez MD Trichomonas NOT REPORTED Normal [facility] Comment on above: Performed By: #### D CITLALY, LIP, CMPX, TROPI, BNP, CDP, PT #### [facility] [address] [place] [address] Grinder Operator: Sami Dominguez MD Yeast LM Ql (Urine sed) NOT REPORTED Normal [facility] Comment on above: Performed By: #### D CITLALY, LIP, CMPX, TROPI, BNP, CDP, PT #### [facility] [address] [place] [address] Grinder Operator: Sami Dominguez MD XR CHEST PORTABLEon 08-02-20 [...] Cullen Ngo MD 08/02/19 Final result Normal [facility] EXAMINATION: ONE XRA Y VIEW OF THE CHEST 08/02/2019 12:59 pm COMPARISON: None. HISTORY: ORDERING SYSTEM PROVIDED HISTORY: CP TECHNOLOGIST PROVIDED HISTORY: CP FINDINGS: Heart size and pulmonary vessels are within normal limits. Lungs are clear. No focal infiltrates or significant pleural effusions are seen. There is no acute osseous abnormality. Monitor leads overlie the chest. [place] No acute cardiopulmo nary process. [place], [place] Moshe, [facility] Incoming Radiant Results From [facility]acs - 08/02/2019 1:10 PM EDT EXAMINATION: ONE [...] the chest. IMPRESSION: No acute cardiopulmonary process. [place] Vital Signs Date Time Vital Sign Value Performing Clinician Facility 07-30-2022 17:40-0400 Body height 157.48 cm Yaneth Toni Other [facility] Other 07-30-2022 17:40-0400 Body mass index (BMI) [Ratio] 36.69 kg/m2 Yaneth Toni Other [facility] Other 07-30-2022 17:40-0400 Body temperature 97.4 [degF] Yaneth Toni Other [facility] Other 07-30-2022 17:40-0400 Body weight 90.99 kg Yaneth Toni Other [facility] Other 07-30-2022 17:40-0400 Diastolic blood pressure 85 mm[Hg] Yaneth Toni Other [facility] Other 07-30-2022 17:40-0400 Respiratory rate 18 /min Yaneth Toni Other [facility] Other 07-30-2022 17:40-0400 SaO2% (BldA) [Mass fraction] 99 % Yaneth Toni Other [facility] Other 07-30-2022 17:40-0400 Systolic blood pressure 124 mm[Hg] Yaneth Toni Other [facility] Other 07-03-2022 09:45-0400 Body height 157.48 cm Estefania Vo Other [facility] Other 07-03-2022 09:45-0400 Body mass index (BMI) [Ratio] 36.76 kg/m2 Estefania Vo Other [facility] Other 07-03-2022 09:45-0400 Body temperature 97 [degF] Estefania Vo Other [facility] Other 07-03-2022 09:45-0400 Body weight 91.17 kg Estefania Vo Other [facility] Other 07-03-2022 09:45-0400 Diastolic blood pressure 60 mm[Hg] Estefania Vo Other [facility] Other 07-03-2022 09:45-0400 SaO2% (BldA) [Mass fraction] 99 % Estefania Vo Other [facility] Other 07-03-2022 09:45-0400 Systolic blood pressure 110 mm[Hg] Estefania Vo Other [facility] Other 06-20-2022 16:10-0400 Diastolic blood pressure 68 mm[Hg] DO Ming Espinoza Work Phone: [facility] 06-20-2022 16:10-0400 Heart rate 69 /min DO Ming Espinoza Work Phone: [facility] 06-20-2022 16:10-0400 Respiratory rate 18 /min DO Ming Espinoza Work Phone: [facility] 06-20-2022 16:10-0400 SaO2% (BldA) [Mass fraction] 100 % DO Ming Espinoza Work Phone: [facility] 06-20-2022 16:10-0400 Systolic blood pressure 126 mm[Hg] DO Ming Espinoza Work Phone: [facility] 06-20-2022 13:15-0400 Body height 157.48 cm DO Ming Espinoza Work Phone: [facility] 06-20-2022 13:15-0400 Body temperature 98.6 [degF] DO Ming Espinoza Work Phone: [facility] 06-20-2022 13:15-0400 Body weight 91.5 kg DO Ming Espinoza Work Phone: [facility] 06-18-2022 10:45-0400 Diastolic blood pressure 79 mm[Hg] DO Ming Espinoza Work Phone: [facility] 06-18-2022 10:45-0400 Heart rate 66 /min DO Ming Espinoza Work Phone: [facility] 06-18-2022 10:45-0400 Respiratory rate 16 /min DO Ming Espinoza Work Phone: [facility] 06-18-2022 10:45-0400 SaO2% (BldA) [Mass fraction] 100 % DO Ming Espinoza Work Phone: [facility] 06-18-2022 10:45-0400 Systolic blood pressure 130 mm[Hg] DO Ming Espinoza Work Phone: [facility] 06-18-2022 08:08-0400 Body mass index (BMI) [Ratio] 37.8 kg/m2 DO Ming Espinoza Work Phone: [facility] 06-18-2022 07:41-0400 Body height 157.48 cm DO Ming Espinoza Work Phone: [facility] 06-18-2022 07:41-0400 Body weight 93.89 kg DO Ming Espinoza Work Phone: [facility] 06-18-2022 06:26-0400 Body temperature 98.5 [degF] DO Ming Espinoza Work Phone: [facility] 05-30-2022 11:00-0400 Body height 157.48 cm Jesus Parham Other [facility] Other 05-30-2022 11:00-0400 Body mass index (BMI) [Ratio] 36.76 kg/m2 Jesus Parham Other [facility] Other 05-30-2022 11:00-0400 Body temperature 97.6 [degF] Jesus Parham Other [facility] Other 05-30-2022 11:00-0400 Body weight 91.17 kg Jesus Parham Other [facility] Other 05-30-2022 11:00-0400 Diastolic blood pressure 76 mm[Hg] Jesus Parham Other [facility] Other 05-30-2022 11:00-0400 SaO2% (BldA) [Mass fraction] 98 % Jesus Parham Other [facility] Other 05-30-2022 11:00-0400 Systolic blood pressure 128 mm[Hg] Jesus Dione Other [facility] Other 05-02-2022 14:40-0400 Body height 157.48 cm Yaneth Toni Other [facility] Other 05-02-2022 14:40-0400 Body mass index (BMI) [Ratio] 36.76 kg/m2 Yaneth Toni Other [facility] Other 05-02-2022 14:40-0400 Body temperature 97.7 [degF] Yaneth Toni Other [facility] Other 05-02-2022 14:40-0400 Body weight 91.17 kg Yaneth Toni Other [facility] Other 05-02-2022 14:40-0400 Diastolic blood pressure 88 mm[Hg] Yaneth Toni Other [facility] Other 05-02-2022 14:40-0400 Respiratory rate 18 /min Yaneth Toni Other [facility] Other 05-02-2022 14:40-0400 SaO2% (BldA) [Mass fraction] 98 % Yaneth Toni Other [facility] Other 05-02-2022 14:40-0400 Systolic blood pressure 121 mm[Hg] Yaneth Toni Other [facility] Other 04-30-2022 10:10-0400 Body height 157.48 cm Dipika Shantell Other [facility] Other 04-30-2022 10:10-0400 Body mass index (BMI) [Ratio] 37.86 kg/m2 Dipika Shantell Other [facility] Other 04-30-2022 10:10-0400 Body temperature 97.4 [degF] Dipika Shantell Other [facility] Other 04-30-2022 10:10-0400 Body weight 93.9 kg Dipika Shantell Other [facility] Other 04-30-2022 10:10-0400 Diastolic blood pressure 80 mm[Hg] Dipika Shantell Other [facility] [employer] Other 04-30-2022 10:10-0400 Respiratory rate 16 /min Dipika Shantell Other [facility] [employer] Other 04-30-2022 10:10-0400 SaO2% (BldA) [Mass fraction] 100 % Dipika Stinson Other [facility] Other 04-30-2022 10:10-0400 Systolic blood pressure 117 mm[Hg] Dipika Stinson Other [facility] Other 04-01-2022 09:13-0400 Diastolic blood pressure 62 mm[Hg] DO Ming Espinoza Work Phone: [facility] 04-01-2022 09:13-0400 Heart rate 83 /min DO Ming Espinoza Work Phone: [facility] 04-01-2022 09:13-0400 Respiratory rate 16 /min DO Ming Espinoza Work Phone: [facility] 04-01-2022 09:13-0400 SaO2% (BldA) [Mass fraction] 97 % DO Ming Espinoza Work Phone: [facility] 04-01-2022 09:13-0400 Systolic blood pressure 101 mm[Hg] DO Minglizz Espinoza Work Phone: [facility] 04-01-2022 07:23-0400 Body height 157.48 cm DO Ming Espinoza Work Phone: [facility] 04-01-2022 07:23-0400 Body mass index (BMI) [Ratio] 37.8 kg/m2 DO Ming Espinoza Work Phone: [facility] 04-01-2022 07:23-0400 Body temperature 97.8 [degF] DO Minglizz Espinoza Work Phone: [facility] 04-01-2022 07:23-0400 Body weight 93.89 kg DO Ming Espinoza Work Phone: [facility] 12-06-2021 16:20-0500 Body height 157.48 cm Yaneth Toni Other [employer] Other 12-06-2021 16:20-0500 Body mass index (BMI) [Ratio] 37.86 kg/m2 Yaneth Toni Other [facility] [employer] Other 12-06-2021 16:20-0500 Body weight 93.9 kg Yaneth Toni Other [facility] Other 12-06-2021 16:20-0500 Diastolic blood pressure 89 mm[Hg] Yaneth Toni Other [facility] Other 12-06-2021 16:20-0500 Respiratory rate 18 /min Yaneth Toni Other [facility] [employer] Other 12-06-2021 16:20-0500 SaO2% (BldA) [Mass fraction] 97 % Yaneth Toni Other [facility] Other 12-06-2021 16:20-0500 Systolic blood pressure 134 mm[Hg] Yaneth Toni Other [employer] Other 08-02-2019 16:35-0400 Body Temperature 99.3 [degF] Vidal C-nario [facility], [place] 08-02-2019 16:27-0400 Pulse (Heart Rate) 110 /min [facility] [place] 08-02-2019 16:27-0400 Pulse Oximetry 98 % [facility] [place] 08-02-2019 16:27-0400 Respiratory Rate 14 /min [facility] [place] 08-02-2019 16:16-0400 BP Diastolic 56 mm[Hg] [facility] [place] 08-02-2019 16:16-0400 BP Systolic 97 mm[Hg] Vidal Peguero [facility] [place] 08-02-2019 14:59-0400 BMI (Body Mass Index) 37.79 kg/m2 [facility] 08-02-2019 14:59-0400 Body weight 90.72 kg Vidal Peguero [facility] [place] 08-02-2019 14:59-0400 Height 154.9 cm Vidal Peguero [facility] , [place] Encounters Encounter Date Encounter Type Care Provider Facility Start: 11-06-2023 End: 11-06-2023 ambulatory Ming Espinoza Facility:[facility] Start: 11-06-2023 End: 11-06-2023 ambulatory DO Ming Espinoza Work Phone: [facility] Work Phone: Start: 11-06-2023 End: 11-06-2023 Patient encounter procedure DO Ming Espinoza Work Phone: [facility] [address] Work Phone: Start: 10-13-2023 End: 10-13-2023 ambulatory MING ESPINOZA Not Available Start: 09-01-2023 End: 09-01-2023 ambulatory [facility] Start: 08-26-2023 ambulatory [facility] Start: 07-30-2023 End: 07-30-2023 ambulatory Ming Espinoza Facility:[facility] Start: 06-28-2023 ambulatory [facility] Start: 05-29-2023 ambulatory [facility] Start: 04-30-2023 ambulatory [facility] Start: 04-16-2023 End: 04-16-2023 ambulatory SUJIT [facility] Start: 03-31-2023 ambulatory [facility] Start: 02-24-2023 ambulatory [facility] Start: 02-03-2023 End: 02-03-2023 ambulatory [facility] Start: 02-01-2023 ambulatory [facility] Start: 01-17-2023 ambulatory [facility] Start: 01-09-2023 ambulatory [facility] Start: 01-01-2023 ambulatory [facility] Start: 12-25-2022 End: 12-25-2022 ambulatory [facility] Start: 12-06-2022 ambulatory [facility] Start: 11-29-2022 End: 11-29-2022 ambulatory [facility] Start: 11-19-2022 ambulatory [facility] Start: 11-08-2022 ambulatory SUJIT MONTERROSO [facility] Start: 11-06-2022 ambulatory [facility] Start: 11-06-2022 Encounter for other preprocedural examination [facility] Start: 10-23-2022 End: 10-23-2022 ambulatory [facility] Start: 10-15-2022 End: 10-15-2022 ambulatory [facility] Start: 10-08-2022 ambulatory [facility] Start: 07-30-2022 End: 07-30-2022 ambulatory Yaneth Toni Other [employer] Other Start: 07-30-2022 Office outpatient vi sit 25 minutes Yaneth Toni [facility] Start: 07-29-2022 End: 07-30-2022 ambulatory YANETH TONI Facility: Start: 07-16-2022 End: 07-16-2022 ambulatory DO Ming Espinoza Work Phone: [facility] Work Phone: Start: 07-16-2022 End: 07-16-2022 Patient encounter procedure DO Ming Espinoza Work Phone: [facility] Start: 07-03-2022 End: 07-03-2022 ambulatory Estefania Vo Other [employer] Other Start: 07-03-2022 Follow-up encounter Estefania Cam[facility]illog[facility] Start: 06-20-2022 End: 06-20-2022 ambulatory Jesus Parham Other [employer] Other Start: 06-20-2022 Telephone encounter Jesus adler [facility] Start: 06-20-2022 End: 06-20-2022 Emergency department patient visit DO Ming Espinoza Work Phone: [facility] Start: 06-18-2022 End: 06-18-2022 Admission to same day surgery center DO Ming Espinoza Work Phone: [facility] [place] Start: 06-14-2022 End: 06-14-2022 Patient encounter procedure DO Ming Espinoza Work Phone: [facility] Start: 06-06-2022 End: 06-07-[address] BRINDA CHAMPION Facility: Start: 06-05-2022 End: 06-05-2022 Patient encounter procedure DO Minglizz Espinoza Work Phone: [facility] Start: 06-03-2022 End: 06-03-2022 ambulatory Jesus Parham Other [employer] Other Start: 06-03-2022 Encounter for other preprocedural examination Jesus Parham [facility] Start: 06-03-2022 Telephone encounter Jesus adler [facility] Start: 05-30-2022 End: 05-30-2022 ambulatory Jesus Parham Other [employer] Other Start: 05-30-2022 [facility] visit new patient Jesus Montanez chalo [facility] Start: 05-30-2022 End: 05-30-2022 Patient encounter procedure DO Ming Espinoza Work Phone: [facility] Start: 05-29-[address] BLAKE CHAMPION [facility] ity:H1 Start: 05-02-2022 End: 05-02-2022 ambulatory Yaneth Toni Other [employer] Other Start: 05-02-2022 Office outpatient vi sit 25 minutes Yaneth Toni [facility] Nephrology Start: 04-30-2022 End: 04-30-2022 ambulatory Dipika Stinson Other [employer] Other Start: 04-30-2022 Office outpatient vi sit 15 minutes Dipika Stinson [facility] Start: 04-30-2022 Encounter for preprocedural laboratory examination YANETH MUÑOZ [facility] Start: 04-29-2022 Encounter for other preprocedural examination DR DOCTOR ALEJANDRO [facility] Start: 04-27-2022 End: 04-28-2022 Encounter for other preprocedural examination DR MING ESPINOZA Facility:[facility]1 Start: 04-27-2022 End: 04-28-[address] MING ESPINOZA Facility:[facility] Start: 04-27-2022 End: 04-28-2022 Encounter for preprocedural laboratory examination YANETH TONI Facility:[facility] Start: 04-03-2022 Encounter for other specified special examinations DR DOCTOR ALEJANDRO [facility] Start: 04-01-2022 End: 04-01-2022 Admission to same day surgery center DO Ming Espinoza Work Phone: [facility] Start: 03-29-2022 End: 03-30-[address] DOCTOR ALEJANDRO Facility:[facility] Start: 03-29-2022 End: 03-30-2022 Encounter for other specified special examinations DR DOCTOR ALEJANDRO Facility:[facility] Start: 03-28-2022 End: 03-28-2022 Patient encounter procedure DO Ming Espinoza Work Phone: [facility] Start: 02-26-2022 End: 02-26-2022 ambulatory Shabbir Jones Other [employer] Other Start: 02-26-2022 Telephone encounter Shabbir VELAZQUEZ [employer] Start: 12-06-2021 End: 12-06-2021 ambulatory Yaneth Toni Other [employer] Other Start: 12-06-2021 Office outpatient vi sit 25 minutes Yaneth Toni [facility] Start: 12-03-2021 End: 12-04-2021 ambulatory YANETH TONI Facility:[facility] Start: 09-01-2021 End: 09-02-[address] MING ESPINOZA Facility:[facility] Start: 08-02-2019 End: 08-02-2019 Emergency department patient visit [facility] Start: 08-02-2019 End: 08-02-2019 Emergency department patient visit [facility] Work Phone: [facility] ED Comment on above: Acute [...] Date Care Activity Detail Author Start: 11-06-2023 [facility] Start: 06-18-2022 [facility] Start: 06-18-2022 [facility] Start: 04-01-2022 [facility] Work Phone: Start: 06-06-2019 Influenza vaccination Flu vaccine (# 1) [place], [place] Start: 2015 Lipid screen Lipid screen [place], [place] Start: 1996 Cervical cancer screen Cervical canc er screen [place], [place] Start: 1994 DTaP/Tdap/Td vaccine (1 - Tdap) DTaP/Tdap/Td vaccine (1 - Tdap) [place], [place] Start: 1990 HIV screen HIV screen [place], [place] Start: 1975 Creatinine monitoring Creatinine mon itoring [place], [place] Start: 1975 Potassium monitoring Potassium monit [place]ing [place] End: 08-02-2019 Bacteria identified Cx Nom (U) Urine Culture Microbiology STAT One Time for 1 Occurrences starting 08/02/2019 until 08/02/2019 [place] Comment on above: One Time for 1 Occur rences starting 08/02/2019 until 08/02/2019 Bacteria identified Cx Nom (U) Urine Culture Microbiology STAT 08/02/2019 1:00 PM EDT [place] End: 08-02-2019 Culture blood #1 Culture blood #1 Microbiology STAT One Time for 1 Occurrences starting 08/02/2019 until 08/02/2019 [place] Comment on above: One Time for 1 Occur rences starting 08/02/2019 until 08/02/2019 End: 08-02-2019 Culture blood #2 Culture blood #2 Microbiology STAT One Time for 1 Occurrences starting 08/02/2019 until 08/02/2019 [place] Comment on above: One Time for 1 Occur rences starting 08/02/2019 until 08/02/2019 EKG 12 Lead EKG 12 Lead ECG STAT 08/02/2019 12:25 PM EDT [place], [place] Homogenous nuclear A b pattern [Titer] in Serum [facility] Initiate Oxygen Ther apy Protocol Initiate Oxygen Therapy Protocol Respiratory Care Routine Daily until discontinued starting 08/02/2019, 2 completed [place] Comment on above: Daily until disconti nued starting 08/02/2019, 2 completed End: 08-02-2019 Lactate, Sepsis Lactate, Sepsis Lab Timed Now Then Every 2hr for 2 Occurrences starting 08/02/2019 until 08/02/2019, 1 completed [place] Comment on above: Now Then Every 2hr f or 2 Occurrences starting 08/02/2019 until 08/02/2019, 1 completed Nuclear Ab [Titer] i n Serum [facility] Patient Education [facility] Work Phone: Patient referral [facility] Work Phone: Potassium [Moles/vol ume] in Serum or Plasma [facility] Work Phone: Immunizations Immunization Date Immunization Notes Care Provider Chirag summers 10-13-2021 COVID-19 Ad26.COV2.S ([place]) DO Ming Espinoza Work Phone: [facility] Payers Date Payer Category Payer Unknown [employer] [address] xxxxxxxxx 2015-Present [phone] [address] [place] [address] xxxxxxxxx [id number] 1975 Unknown [id number] 1975 Unknown [id number] 1975 Unknown [id number] [id number] 1975 Unknown [id number] [id number] 1975 Unknown [id number] [id number] 1975 Unknown [id number] [id number] 1975 Unknown [id number] [id number] 1975 Unknown [id number] [id number] 1975 Unknown [id number] [id number] 1975 Unknown [id number] [id number] 9 1959 Self-pay [id number] 1959 Unknown [id number] 1959 Unknown [id number] [id number] Unknown [id number] [id number] Unknown [id number] [id number] Unknown [id number] Social History Date Type Detail Facility Tobacco smoking status NHIS Unknown if ever smoked [facility]- [place], [place] Sex Assigned At Not on file [facility] [place], [place] Sex Assigned At Sex Assigned At Bir th [employer] Other Start: 06-05-2022 End: 06-20-2022 Tobacco smoking status NHIS Never smoked tobacco (finding) [facility] Start: 1975 Sex Assigned At Female F [facility] Goals Date Patient Goal Desired Activity [...] she is not taking and reconfirmed today. [facility] 09-01-[address] [facility] 08-06-2023 Note For K-level of 3.4, left VM to start Kdur [address] Dolores anderson. [facility] 07-24-[address] [facility] 07-24-[address] [facility] 07-24-[address] [facility] 07-17-[address] [facility] 07-16-2023 Note Reviewed by phone noreen Monterroso MD pt input about her medication changes by PCP including stopping Amiloride. agreed to reschedule her 07/18 RV and review labs tomorrow by phone. Clinic [place] team informed to reschedule pt. [facility] 07-16-[address] [facility] 07-10-[address] [facility] 06-17-[address] [facility] 06-15-[address] [facility] 04-30-[address] [facility] 04-16-2023 Note Seen by Dolores FIERRO in clinic today, he states he gave the pt verbal instruction to reduce her Prednisone to 5mg every other day. [facility] 04-16-[address] [facility] 04-11-2023 Note Reviewed Mag K & cre atinine with Guillermo FIERRO and to start Amiloride 5mg every day due to low mag level 1.6. Pt notified and she verbalizes understanding. RV 04/16 [facility] 04-11-[address] [facility] 02-24-[address] Sharla anderson, deed nt notified to start taking Potassium chloride 20 meq daily. Pt verbalized understanding [facility] 02-04-2023 Note CK: 26.0. Reviewed l ab results with Dr. Monterroso. No new orders at this time. [facility] 02-03-[address] [facility] 01-09-2023 Note Tac:4.4. Reviewed la b results with Dr. Monterroso. New order to increase Envarsus by 0.5mg daily. New daily dose will be Envarsus 2mg. Patient verbalizes understanding of medication change and will repeat tac level in a week. [facility] 01-01-2023 Note Tac: 10. Reviewed la b results with Dr. Monterroso. New order to decrease Envarsus by 0.5mg daily. New daily dose will be Envarsus 1.5mg. Patient verbalizes understanding of medication change and repeat lab in a week. [facility] 12-25-2022 Note Patient seen in clin ic today with Dr. Parrish, to decrease Envarsus by 1 mg daily, new dose will now be 2 mg daily. Voiced understanding of medication change and will repeat level in about a week. [facility] 12-25-[address] [facility] 12-06-2022 Note Patient came for lab s today due to elevated creatinine, now improved. Was to get Prospera done as well but test was missed. To be in later this month for clinic visit and labs, will repeat at that time. [facility] 11-29-[address] [facility] 11-19-2022 Note Tac: 11.7. Reviewed lab results with Dr. Monterroso. New order to decrease Envarsus by 0.5 daily. New daily dose will be Envarsus 3mg. Patient verbalizes understanding of medication change and to recheck tac level in a week. [facility] 11-18-2022 Note [facility]. Reviewed safe discharge plan. Will have familial support at home. Provided post op education including s/s of mental health exacerbation, prednisone side effects and clinic expectations. [facility] 11-08-[address] [facility] 11-06-2022 Note Protein urine: 14 an d Creatinine urine: 62. Reviewed results with Dr. Monterroso. No new medication orders at this time. [facility] 10-23-[address] [facility] 10-18-[address] [facility] 10-15-[address] [facility] 10-15-[address] [facility] 10-14-[address] [facility] 10-08-[address] [facility] 10-08-[address] [facility] 10-07-[address] [facility] 07-30-2022 Evaluation note Encounter Date [...] She has gout and follows with a cyber intelligence analyst. She takes Urolic and denies any recent gout flare Jul, Metabolic acidemia, unspecified (ICD-10 - P19.9) She has metabolic acidosis due to the advanced CKD. Continue oral Sodium Bicarbonate [employer] Other 09-28-2022 Evaluation note* Encounter Date Diagnosis [...] disease, unspecified CKD stage (ICD-10 - N18.9) [employer] Other [facility]* Encounter Date Diagnosis Assessment Notes Treatment Notes Treatment Clinical Notes May, Pre-op testing (ICD-10 - Z01.818) [employer] Other 08-25-2022 Evaluation note* Encounter Date Diagnosis [...] will schedule this in the near future. [employer] Other 07-28-2022 Evaluation note* Encounter Date Diagnosis [...] explained to her the potential need of EDUCATIONAL PSYCHOLOGY TEACHER in future. I discussed with her different options of EDUCATIONAL PSYCHOLOGY TEACHER including PD, HTN renal transplant. I provide [...] stephens s gout and follows with a cyber intelligence analyst. She takes Urolic and denies any recent gout flare [employer] Other 07-26-2022 Evaluation note* Encounter Date Diagnosis [...] care provider if no improvement of symptoms. [employer] Other 05-24-2022 Evaluation note* Encounter Date Diagnosis Assessment Notes Treatment Notes Treatment Clinical Notes February, Screening for colon cancer (ICD-10 - Z12.11) [employer] Other 03-03-2022 Evaluation note* Encounter Date Diagnosis [...] explained to her the potential need of EDUCATIONAL PSYCHOLOGY TEACHER in future. I discussed with her different options of EDUCATIONAL PSYCHOLOGY TEACHER including PD, HTN renal transplant. I provide [...] She has gout and follows with a cyber intelligence analyst. She takes Urolic and denies any recent gout flare [employer] Other 06-25-2021 NotePatient Outreach (NEPHMN) MANDEEP PURI ([id number]) 1975 F Date Time Provider Department 03/30/21 PERRI BARRETT During your visit today, we recorded the following information about you: Allergies As of Date: 03/30/2021 Noted Allergy Reaction ALLOPURINOL 08/02/2019 4 - Hives Date Reviewed: 03/30/2021 Reviewed by: Perri Barrett MD - Fully Assessed Visit Diagnosis:Screening for genitourinary condition [Z13.89] Order(s):URINALYSIS, DIPSTICK ONLY [SQUA] Order #: [id number]. #:[id number] Prescriptions as of 03/30/2021 Sig: DULOXETINE 60 [...] dominant polycystic kidney dis*03/30/2021 Encounter Status:Closed by [employer] on 04/02/21[facility] 03-30-2021 NoteHNO ID: [id number] Author: Perri Barrett MD Service: ? Author Type: Physician Type: Progress Notes Filed: 03/30/2021 10:25 AM Note Text: Mrs. 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 [facility]rol[facility]rapamycin[facility] History general Narrative - Reported * Type Description Date Medical History HTN (hypertension) Medical History Anxiety Medical History polycystic kidneys Medical History COVID 05-17-2020 Surgical History C section Surgical History BREAST REDUCTION Hospitalization History child Hospitalization History KIDNEY INFECTION 07/2019 Hospitalization History COVID AND DEHYDRATION [employer] Other 08-12-2020 History general Narrative - Reported* Type Description Date Medical History HTN (hypertension) Medical History Anxiety Medical History polycystic kidneys Medical History COVID 05-17-2020 Medical History end stage renal disease Surgical History C section Surgical History BREAST REDUCTION Surgical History colonoscopy 04/01/2022 Surgical History wisdom teeth 03/24/2022 Hospitalization History child Hospitalization History KIDNEY INFECTION 07/2019 Hospitalization History COVID AND DEHYDRATION [employer] Other 08-12-2020 History general Narrative - Reported* [...] INFECTION 07/2019 Hospitalization History COVID AND DEHYDRATION [employer] Other 08-12-2020 History general Narrative - Reported* [...] INFECTION 07/2019 Hospitalization History COVID AND DEHYDRATION [employer] Other Evaluation noteNo assessment information available [facility] Work Phone: Evaluation noteNo InformationNort PhoRent Other Assessments Diagnosis Acute sepsis (HCC)- Primary Acute cystitis without hematuria Acute cystitis Chronic renal failure, stage 4 (severe) (HCC) Polycystic kidney disease Polycystic kidney, unspecified type Advance Directives No Advanced Directives Records FoundDocuments on File Type Date Recorded 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 Expl anation Advance Directives and Living Will 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 Advance Directive Response Recorded Date/ Time Advance [...] content) DATE CREATED AUTHOR 08/04/2019 Marielena Castillo [facility] DATE CREATED AUTHOR AUTHOR'S ORGANIZ ATION 04/28/2020 [facility] DATE CREATED AUTHOR AUTHOR'S ORGANIZ ATION 09/12/2020 [facility] DATE CREATED AUTHOR AUTHOR'S ORGANIZ ATION 11/07/2021 [facility] DATE CREATED AUTHOR AUTHOR'S ORGANIZ ATION 02/27/2022 [facility] DATE CREATED AUTHOR AUTHOR'S ORGANIZ ATION 08/04/2022 [facility] DATE CREATED AUTHOR AUTHOR'S ORGANIZ ATION 10/06/2023 [facility] DATE CREATED AUTHOR AUTHOR'S ORGANIZ ATION 10/14/2023 [facility] EP[facility] DATE CREATED AUTHOR AUTHOR'S LORETA ATION 11/14/2023 [facility] Care Teams (unrecognized sec tion and [...] BE BASED ON THE PRIMARY CLINICAL RECORDS. [employer] provides no warranty or guarantee of the accuracy or completeness of information in this document.
[2023-12-22 07:53] LABS: Basophils Absolute Auto 0.1 10^3/uL (0.0-0.1); Basophils Percent Auto 0.6 % (0.2-2.0); Eosinophils Absolute Auto 0.2 10^3/uL (0.0-0.7); Eosinophils Percent Auto 3.1 % (0.9-7.0); Hemoglobin 12.8 g/dL (12.0-16.0); Immature Granulocytes Abs Auto 0.06 10^3/uL (0.00-0.03); Immature Granulocytes Pct Auto 0.8 % (0.0-0.5); Lymphocytes Absolute Auto 1.3 10^3/uL (1.2-3.8); Lymphocytes Percent Auto 17.1 % (20.5-60.0); Mean Corpuscular Hemoglobin 28.1 pg (26.7-34.0); Mean Corpuscular Volume 87.9 fL (81.0-99.0); Mean Platelet Volume 8.5 fL (9.5-13.5); Monocytes Absolute Auto 0.4 10^3/uL (0.3-0.8); Monocytes Percent Auto 5.7 % (1.7-12.0); Neutrophils Absolute Auto 5.6 10^3/uL (1.4-6.5); Neutrophils Percent Auto 72.7 % (43.0-75.0); Platelet Count 333 10^3/uL (150-450); Red Blood Count 4.55 10^6/uL (4.20-5.40); Red Cell Distribution Width 14.4 % (11.0-15.0); White Blood Count 7.8 10^3/uL (4.0-11.0)
[2023-12-22 08:21] LABS: Alanine Aminotransferase 21 U/L (14-59); Albumin Globulin Ratio 0.9; Albumin Level 3.6 g/dL (3.4-5.0); Alkaline Phosphatase 93 U/L (46-116); Anion Gap 13.4; Aspartate Amino Transferase 12 U/L (15-37); Bilirubin Direct 0.1 mg/dL (0.0-0.2); Bilirubin Total 0.4 mg/dL (0.2-1.0); Calcium 9.2 mg/dL (8.5-10.1); Chloride 104 mmol/L (98-107); Chol HDL Ratio 4.1; Cholesterol 197 mg/dL (<=200); Estimated GFR (African America 60 (>=60); Estimated GFR (Non-African Ame 49 (>=60); Globulin 3.9 g/dL; Glucose 106 mg/dL (74-106); HDL Cholesterol 48 mg/dL (40-60); Magnesium 1.8 mg/dL (1.8-2.4); Phosphorus 3.4 mg/dL (2.6-4.7); Potassium 3.4 mmol/L (3.5-5.1); Sodium 140 mmol/L (136-145); Total Protein 7.5 g/dL (6.4-8.2); Triglycerides 156 mg/dL (<=150); VLDL CHOLESTEROL 31.2 mg/dL
[2023-12-24 12:09] LABS: Tacrolimus (FK506), Blood 5.1 ng/mL (2.0-20.0)
== END 2023-12-22 07:21 | disposition home or self-care (01) ==
PROVIDERS: PCP Internal Medicine; Visit Provider Internal Medicine Nephrology
DX: R73.01 Impaired fasting glucose (principal); Z94.0 Kidney transplant status
CPT/HCPCS: 36415; 80053; 80061; 80197; 82248; 83735; 84100; 84550; 85025

== ENCOUNTER 2024-01-28 07:06 | Outpatient (OUT) | payer OTHER, SELFPAY ==
--- OUTSIDE RECORDS SUMMARY | 2024-01-28 07:10 | XMS_ITS | CCD ---
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 Name Role Phone Ming Espinoza Primary Care Provider VIDAL MADRIGAL Attending Unavailable MING ESPINOZA Primary Care Unavailable Toni, Yaneth Unavailable Shabbir Jones Unavailable Dipika Stinson Unavailable Jesus Parham Unavailable DO Ming Espinoza Primary Care Provider MD Shabbir Jones Attending Provider [phone] MD Yaneth Muñoz Attending Provider MD Jesus Parham Attending Provider Estefania Vo Unavailable DO Ming Espinoza Primary Care Provider EB Forman Emergency Provider DO Blake Hinojosa Attending Provider JAVON, DR ZARAGOZA Admitting Unavailable DR MING ESPINOZA Primary Care Unavailable JAVON, DR ZARAGOZA Attending Unavailable MISC, DR ZARAGOZA Consulting Unavailable TONI, YANETH Admitting Unavailable DR MING ESPINOZA Primary Care Unavailable DR MING ESPINOZA Consulting Unavailable TONI, YANETH Attending Unavailable TONI, YANETH Consulting Unavailable DR MING ESPINOZA Primary Care [...] Unavailable ALEXIS, DR ACOSTA Primary Care Unavailable MIS, DR ZARAGOZA Admitting Unavailable MISC, DR ZARAGOZA Attending Unavailable MISC, DR ZARAGOZA Consulting Unavailable TONI, YANETH Admitting Unavailable ALEXIS, DR ACOSTA Primary Care Unavailable TONI, YANETH Attending Unavailable TONI, YANETH Consulting Unavailable MING ESPINOZA Attending Unavailable MING ESPINOZA Referring Unavailable DO Ming Espinoza Primary Care Provider [phone] MD Perri Ceja Attending Provider [phone] Ming Espinoza [facility] Unavailable Blake Hinojosa Referring Unavailable Self, Referral Admitting Unavailable Self, Referral Attending Unavailable Ming Espinoza [facility] Unavailable Perri Ceja Admitting Unavailable Perri Ceja Attending Unavailable SUJIT BERNAL Attending Unavailable AGUILA PA Attending Unavailable MUNIRA PHAN Attending Unavailable Allergies Allergy Classification Reported Allergen(s) Allergy Type Date of Onset Reaction(s) Facility (12 sources) Allopurinol; Translations: [ALLOPURINOL] Drug Allergy 08-02-2019 [place], [place] (7 sources) venlafaxine; Translations: [venlafaxine] Drug Allergy 06-05-2022 [facility] (1 source) Allopurinol Drug Allergy 01-10-2023 [facility] Repository (1 source) venlafaxine; Translations: [VENLAFAXINE HCL] Drug Allergy 07-10-2021 [facility] Repository Medications Current Medications Medication Drug Class(es) Dates Sig (Normalized) Sig (Original) amoxicillin 875 mg / clavulanate 125 mg oral tablet (2 sources) Penicillin-class Antibacterial Start: 04-30-2022 take 1 tablet by mouth every twelve hours Amoxicillin-Pot Clavulanate 875-125 MG 1 tablet Orally every 12 hrs for 7 days Apr, Active {1 (ascorbic acid 7540 MG / polyethylene glycol 3350 59113 MG / potassium chloride 1200 MG / sodium ascorbate 71369 MG / sodium chloride 3200 MG Powder for Oral Solution) / 1 (polyethylene glycol 3350 807264 MG / potassium chloride 1000 MG / sodium chloride 2000 MG / sodium sulfate 9000 MG Powder for Oral Solution) } Pack [Plenvu] (1 source) Osmotic Laxative, Vitamin C Start: 02-26-2022 Plenvu 140 GM dose 1 pouch at 4pm, dose 2 pouch A & B at 11pm Orally twice a day for 1 days BIN:[id number] PCN: [id number] GROUP:[id number] ID:[id number] February, Active cetirizine hydrochloride 10 mg oral [...] PO Daily August 01, 2019 11:00pm calcitriol 0.35905 mg oral capsule (5 sources) Vitamin D3 Analog Start: 01-20-2019 End: 08-02-2019 Calcitriol (Rocaltrol) 0.25 mcg Capsule Discontinued 0.25 MCG PO MoWeFr@0900 12 January 19, 2019 11:00pm August 02, 2019 [...] MG PO Twice daily 24 12 August 04, 2019 11:00pm May 21, 2020 [...] D2 Compound Start: 01-20-2019 End: 08-02-2019 take 24868 [IU] by mouth every month Ergocalciferol (Vitamin D2) Discontinued 54103 UNIT PO every month January 19, 2019 [...] Translations: [Chronic renal failure, stage 4 (severe) ([facility])] Chronic Acute and unspecified renal failure (5 sources) Injury of kidney; Translations: [Acute kidney failure, unspecified] 01-19-2019 Episodic Acute myocardial infarction (5 sources) Myocardial infarction; Translations: [Non-ST elevation (NSTEMI) myocardial infarction] 08-03-2019 Chronic Chronic kidney disease (20 sources) Chronic kidney disease stage 4; Translations: [Chronic kidney disease, stage 4 (severe)] Onset: 2 Resolved: 2 Chronic Deficiency and other anemia (14 sources) Anemia of renal disease; Translations: [Anemia in chronic kidney disease] 01-19-2019 Chronic Deficiency and other anemia (8 sources) Anemia in chronic kidney disease; Translations: [ANEMIA IN CHRONIC KIDNEY DISEASE] Onset: 1 Resolved: 2 Chronic Deficiency and other anemia (9 sources) Iron deficiency anemia; Translations: [Iron deficiency anemia, unspecified] Episodic Disorders of lipid metabolism (2 sources) Hyperlipidemia, unspecified; Translations: [Hyperlipidemia, unspecified] Onset: 3 Chronic Fever of unknown origin (5 sources) [...] kidney disease] Onset: 1 Resolved: 2 Chronic Intrauterine hypoxia and asphyxia (1 source) Metabolic acidemia, unspecified Episodic Nutritional deficiencies (5 sources) Vitamin D deficiency; Translations: [Vitamin D deficiency, unspecified] 01-20-2019 Chronic Other aftercare (2 sources) Encounter for aftercare following other organ transplant; Translations: [Encounter for aftercare following other organ transplant] Onset: 3 Chronic Other aftercare (2 sources) Encounter for aftercare following kidney transplant; Translations: [Encounter for aftercare following kidney transplant] Onset: 3 Chronic Other circulatory disease [...] Kidney Follow-up; Translations: [Kidney Follow-up] Onset: 3 Urinary tract infections (16 sources) Acute cystitis; Translations: [Urinary tract infectious disease] 05-15-2020 Episodic Past or Other Problems Problem Classification Problem Date Documented Da te Episodic/Chronic Diabetes mellitus without complication (2 sources) Impaired fasting glucose; Translations: [Impaired fasting glucose] Onset: 08-26-2023 Episodic Fluid and electrolyte disorders (3 sources) Acidosis; Translations: [ACIDOSIS] Onset: 12-06-2021 Resolved: 05-02-2022 Episodic Other aftercare (2 sources) Other nursing home (current) drug therapy; Translations: [Other nursing home (current) drug therapy] Onset: 01-17-2023 Episodic Other screening for suspected conditions (not mental disorders or infectious disease) (1 source) Encounter for screening for malignant neoplasm of colon Onset: 02-26-2022 Resolved: 02-26-2022 Episodic Otitis media and related conditions (1 source) Otitis media, unspecified, bilateral Onset: 04-30-2022 Resolved: 04-30-2022 Episodic Results Test Name Value Interpretation Reference Range Facility Follow-Upon 12-23-2023 Follow-Up [id number] Antonio Puri i 1975 F Date Provider Department Center 12/23/2023 MUNIRA BAGLEY None Family History Problem Relation Age of Onset Fibromyalgia Mother Heart disease Father Hypertension Sister Polycystic kidney disease Sister Hypertension Brother Polycystic kidney disease Brother Family Status - Relation Status Age at Mother Father Sister Brother Level of Service:29512 MT OFFICE/OUTPATIENT ESTABLISHED MOD MDM 30 MIN Reason for Visit and Comments: Kidney Follow-up [] - Pt has questions about her lab work. Normal [facility] [place] Antinuclear Antibodieson 11-06-2023 Antinuclear Abs, IFA Negative Normal . [facility] Comment on above: Result Comment: Nega tive <1:80 Borderline 1:80 Positive >1:80 ICAP nomenclature: AC-0 For more information about Hep-2 cell patterns use ANApatterns.org, the official website for the International Consensus on Antinuclear Antibody ([place]) Patterns (ICAP). Performed at: - [facility] [address] [id number] Oil Rag Washer: Gabriel Whitman PhD, Phone: [phone] PERFORMED BY: [place] [address] PATHOLOGIST DRAW IN HAND ANAHY MCKEE M.D. Performed By: #### C K, CRP, ESR, CBC, CMP #### [address] #### [place] #### [facility] , Alanine aminotransferase [En zymatic activity/volume] in Serum or PlasmaOrdered By: Perri Ceja on 11-06-2023 ALT [Catalytic activity/Vol] 20 U/L 7-52 [facility] Albumin [Mass/volume] in Ser um or Plasma by Bromocresol green (BCG) dye binding methoOrdered By: Perri Ceja on 11-06-2023 Albumin BCG dye [Mass/Vol] 4.7 g/dL 3.5-5.7 [facility] Alkaline phosphatase [Enzyma tic activity/volume] in Serum or PlasmaOrdered By: Perri Ceja on 11-06-2023 ALP [Catalytic activity/Vol] 96 U/L 34-104 [facility] Aspartate aminotransferase [ Enzymatic activity/volume] in Serum or PlasmaOrdered By: Perri Ceja on 11-06-2023 AST [Catalytic activity/Vol] 16 U/L 13-39 [facility] Basophils Auto (Bld) [#/Vol] Ordered By: Perri Ceja on 11-06-2023 Basophils (Bld) [#/Vol] 0.1 10*3/uL 0.0-0.2 [facility] Basophils/100 WBC Auto (Bld) Ordered By: Perri Ceja on 11-06-2023 Basophils/100 WBC (Bld) 0.7 % . [facility] Bilirubin.total [Mass/volume ] in Serum or PlasmaOrdered By: Perri Ceja on 11-06-2023 Bilirubin [Mass/Vol] 0.4 mg/dL 0.3-1.0 [facility] C reactive protein [Mass/vol ume] in Serum or PlasmaOrdered By: Perri Ceja on 11-06-2023 CRP [Mass/Vol] 2.0 mg/dL 0.0-0.5 [facility] C-Reactive Proteinon 024 C-Reactive Protein 2.0 mg/dL High 0.0-0.5 [facility] Comment on above: Result Comment: PERF ORMED BY: [place] [address] PATHOLOGIST DRAW IN HAND ANAHY MCKEE M.D. Performed By: #### C K, CRP, ESR, CBC, CMP #### [facility] [address] [place] [address] #### [place] #### [facility] , Calcium [Mass/volume] in Ser um or PlasmaOrdered By: Perri Ceja on 11-06-2023 Calcium [Mass/Vol] 10.3 mg/dL 8.6-10.3 [facility] Carbon dioxide, total [Moles /volume] in Serum or PlasmaOrdered By: Perri Ceja on 11-06-2023 CO2 [Moles/Vol] 26.1 mmol/L 21.0-31.0 [facility] [place] Chloride [Moles/volume] in S aislinn or PlasmaOrdered By: Perri Ceja on 11-06-2023 Chloride [Moles/Vol] 104 mmol/L 98-107 [facility] Complete Blood Count Auto Di ffon 11-06-2023 Basophils (Bld) [#/Vol] 0.1 10*3/uL Normal 0.0-0.2 [facility] Comment on above: Performed By: #### C K, CRP, ESR, CBC, CMP #### [facility] [address] [place] [address] [place] #### [place] #### [facility] , Basophils/100 WBC (Bld) 0.7 % Normal . [facility] Comment on above: Performed By: #### C K, CRP, ESR, CBC, CMP #### [place] [address] [place] #### [place] #### [facility] , Eosinophils (Bld) [#/Vol] 0.3 10*3/uL Normal 0.0-0.45 [facility] Comment on above: Performed By: #### C K, CRP, ESR, CBC, CMP #### [place] [address] [place] #### [place] #### [facility] , Eosinophils/100 WBC (Bld) 3.0 % Normal . [facility] Comment on above: Performed By: #### C K, CRP, ESR, CBC, CMP #### [place] [address] [place] #### [place] #### [facility] , Erythrocyte distribution width (RBC) [Ratio] 15.3 % Normal 11.9-15.3 [facility] Comment on above: Performed By: #### C K, CRP, ESR, CBC, CMP #### [place] [address] [place] #### [place] #### [facility] , Hematocrit (Bld) [Volume fraction] 38.9 % Normal 34.0-46.4 [facility] Comment on above: Performed By: #### C K, CRP, ESR, CBC, CMP #### [place] [address] [place] #### [place] #### [facility] , Hemoglobin (Bld) [Mass/Vol] 13.1 g/dL Normal 11.8-15.4 [facility] Comment on above: Performed By: #### C K, CRP, ESR, CBC, CMP #### [place] [address] [place] #### [place] #### [facility] , Lymphocytes (Bld) [#/Vol] 1.5 10*3/uL Normal 1.00-4.8 [facility] Comment on above: Performed By: #### C K, CRP, ESR, CBC, CMP #### [address] #### [place] #### [facility] , Lymphocytes/100 WBC (Bld) 17.6 % Normal . [facility] Comment on above: Performed By: #### C K, CRP, ESR, CBC, CMP #### [address] #### [place] #### [facility] , MCH (RBC) [Entitic mass] 28.4 pg Normal 24.7-34.3 [facility] Comment on above: Performed By: #### C K, CRP, ESR, CBC, CMP #### [address] #### [place] #### [facility] , MCV (RBC) [Entitic vol] 84.6 fL Normal 80-100 [facility] Comment on above: Performed By: #### C K, CRP, ESR, CBC, CMP #### [address] #### [place] #### [facility] , Mean Corpuscular HGB Conc 33.6 g/dL Normal 32.0-35.0 [facility] Comment on above: Performed By: #### C K, CRP, ESR, CBC, CMP #### [place] [address] [place] #### [place] #### [facility] , Monocytes (Bld) [#/Vol] 0.6 10*3/uL Normal 0.0-0.8 [facility] Comment on above: Performed By: #### C K, CRP, ESR, CBC, CMP #### [place] [address] [place] #### [place] #### [facility] , Monocytes/100 WBC (Bld) 6.6 % Normal . [facility] Comment on above: Performed By: #### C K, CRP, ESR, CBC, CMP #### [place] [address] [place] #### [place] #### [facility] , Neutrophils (Bld) [#/Vol] 6.3 10*3/uL Normal 1.8-7.7 [facility] Comment on above: Performed By: #### C K, CRP, ESR, CBC, CMP #### [place] [address] [place] #### [place] #### [facility] , Neutrophils/100 WBC (Bld) 72.1 % Normal . [facility] Comment on above: Performed By: #### C K, CRP, ESR, CBC, CMP #### [address] #### [place] #### [facility] , NRBC% 0.1 /100{WBC} Normal 0-0.5 [facility] Comment on above: Performed By: #### C K, CRP, ESR, CBC, CMP #### [address] #### [place] #### [facility] , Platelet mean volume (Bld) [Entitic vol] 6.9 fL Normal 6.3-10.7 [facility] Comment on above: Performed By: #### C K, CRP, ESR, CBC, CMP #### [facility] [address] [place] [address] [place] #### [place] #### [facility] , Platelets (Bld) [#/Vol] 393 10*3/uL Normal 150-450 [facility] Comment on above: Performed By: #### C K, CRP, ESR, CBC, CMP #### [facility] [address] [place] [address] [place] #### [place] #### [facility] , RBC (Bld) [#/Vol] 4.60 10*6/uL Normal 3.60-5.00 [facility] Comment on above: Performed By: #### C K, CRP, ESR, CBC, CMP #### [facility] [address] [place] [address] [place] #### [place] #### [facility] , WBC (Bld) [#/Vol] 8.8 10*3/uL Normal 3.8-11.6 [facility] Comment on above: Performed By: #### C K, CRP, ESR, CBC, CMP #### [address] #### [place] #### [facility] , Comprehensive Metabolic Pane jonathan 11-06-2023 Albumin [Mass/Vol] 4.7 g/dL Normal 3.5-5.7 [facility] Comment on above: Performed By: #### C K, CRP, ESR, CBC, CMP #### [facility] [address] [place] [address] [place] #### [place] #### [facility] , Albumin/Globulin [Mass ratio] 1.6 {ratio} Normal [facility] Comment on above: Performed By: #### C K, CRP, ESR, CBC, CMP #### [facility] [address] [place] [address] [place] #### [place] #### [facility] , ALP [Catalytic activity/Vol] 96 U/L Normal 34-104 [facility] Comment on above: Performed By: #### C K, CRP, ESR, CBC, CMP #### [place] [address] [place] #### [place] #### [facility] , ALT [Catalytic activity/Vol] 20 U/L Normal 7-52 [facility] Comment on above: Performed By: #### C K, CRP, ESR, CBC, CMP #### [facility] [address] [place] [address] [place] #### [place] #### [facility] , Anion gap [Moles/Vol] 12.7 mmol/L Normal 6.0-15.0 [facility] Comment on above: Performed By: #### C K, CRP, ESR, CBC, CMP #### [facility] [address] [place] [address] [place] #### [place] #### [facility] , AST [Catalytic activity/Vol] 16 U/L Normal 13-39 [facility] Comment on above: Performed By: #### C K, CRP, ESR, CBC, CMP #### [place] [address] [place] #### [place] #### [facility] , Bilirubin [Mass/Vol] 0.4 mg/dL Normal 0.3-1.0 [facility] Comment on above: Performed By: #### C K, CRP, ESR, CBC, CMP #### [facility] [address] [place] [address] [place] #### [place] #### [facility] , Calcium [Mass/Vol] 10.3 mg/dL Normal 8.6-10.3 [facility] Comment on above: Performed By: #### C K, CRP, ESR, CBC, CMP #### [place] [address] [place] #### [place] #### [facility] , Chloride [Moles/Vol] 104 mmol/L Normal 98-107 [facility] Comment on above: Performed By: #### C K, CRP, ESR, CBC, CMP #### [facility] [address] [place] [address] [place] #### [place] #### [facility] , CO2 [Moles/Vol] 26.1 mmol/L Normal 21.0-31.0 [facility] Comment on above: Performed By: #### C K, CRP, ESR, CBC, CMP #### [facility] [address] [place] [address] [place] #### [place] #### [facility] , Creatinine [Mass/Vol] 1.17 mg/dL Normal 0.60-1.20 [facility] Comment on above: Performed By: #### C K, CRP, ESR, CBC, CMP #### [place] [address] [place] #### [place] #### [facility] , GFR/1.73 sq M.predicted MDRD (S/P/Bld) [Vol rate/Area] 57.919 mL/min/{1.73_m2} Normal [facility] [place] Comment on above: Performed By: #### C K, CRP, ESR, CBC, CMP #### [place] [address] [place] #### [place] #### [facility] , Globulin (S) [Mass/Vol] 3.0 g/dL Normal [facility] Comment on above: Performed By: #### C K, CRP, ESR, CBC, CMP #### [place] [address] [place] #### [place] #### [facility] , Glucose [Mass/Vol] 91 mg/dL Normal 70-100 [facility] Comment on above: Result Comment: [place] Glucose Reference Range is dependent on time and content of last meal. Glucose of more than 200 mg/dL in a nonstressed, ambulatory subject supports the diagnosis of Diabetes Mellitus. ADA recommended reference range Performed By: #### C K, CRP, ESR, CBC, CMP #### [place] [address] [place] #### [place] #### [facility] , Potassium [Moles/Vol] 3.8 mmol/L Normal 3.5-5.1 [facility] Comment on above: Performed By: #### C K, CRP, ESR, CBC, CMP #### [facility] [address] [place] [address] [place] #### [place] #### [facility] , Protein [Mass/Vol] 7.7 g/dL Normal 6.4-8.9 [facility] Comment on above: Performed By: #### C K, CRP, ESR, CBC, CMP #### [facility] [address] [place] [address] [place] #### [place] #### [facility] , Sodium [Moles/Vol] 139 mmol/L Normal 136-145 [facility] Comment on above: Performed By: #### C K, CRP, ESR, CBC, CMP #### [place] [address] [place] #### [place] #### [facility] , Urea nitrogen [Mass/Vol] 17 mg/dL Normal 7-25 [facility] Comment on above: Performed By: #### C K, CRP, ESR, CBC, CMP #### [facility] [address] [place] [address] [place] #### [place] #### [facility] , Creatine Kinaseon 11-06-2023 CK [Catalytic activity/Vol] 30 U/L Normal 30-223 [facility] Comment on above: Result Comment: PERF ORMED BY: [place] [address] PATHOLOGIST DRAW IN HAND ANAHY MCKEE M.D. Performed By: #### C K, CRP, ESR, CBC, CMP #### [place] [address] [place] #### [place] #### [facility] , Creatine kinase [Enzymatic a ctivity/volume] in Serum or PlasmaOrdered By: Perri Ceja on 11-06-2023 CK [Catalytic activity/Vol] 30 U/L 30-223 [facility] Creatinine [Mass/volume] in Serum or PlasmaOrdered By: Perri Ceja on 11-06-2023 Creatinine [Mass/Vol] 1.17 mg/dL 0.60-1.20 [facility] Eosinophils Auto (Bld) [#/Vo l]Ordered By: Perri Ceja on 11-06-2023 Eosinophils (Bld) [#/Vol] 0.3 10*3/uL 0.0-0.45 [facility] Eosinophils/100 WBC Auto (Bl d)Ordered By: Perri Ceja on 11-06-2023 Eosinophils/100 WBC (Bld) 3.0 % . [facility] Erythrocyte Sedimentation Ra mathieu 11-06-2023 ESR (Bld) [Velocity] 49 mm/h High 0-19 [facility] Comment on above: Result Comment: PERF ORMED BY: [place] [address] PATHOLOGIST DRAW IN HAND ANAHY MCKEE M.D. Performed By: #### C K, CRP, ESR, CBC, CMP #### [place] [address] [place] #### [place] #### [facility] , Erythrocyte distribution wid th Auto (RBC) [Ratio]Ordered By: Perri Ceja on 11-06-2023 Erythrocyte distribution width (RBC) [Ratio] 15.3 % 11.9-15.3 [facility] Erythrocyte sedimentation ra te by Photometric methodOrdered By: Perri Ceja on 11-06-2023 ESR Photometric method (Bld) [Velocity] 49 mm/hr 0-19 [facility] Globulin Calc (S) [Mass/Vol] Ordered By: Perri Ceja on 11-06-2023 Globulin (S) [Mass/Vol] 3.0 g/dL [facility] Glucose [Mass/volume] in Ser um or PlasmaOrdered By: Perri Ceja on 11-06-2023 Glucose [Mass/Vol] 91 mg/dL 70-100 [facility] Comment on above: ADA recommended refe rence rangeRandom Glucose Reference Range is dependent on time and content of last meal. Glucose of more than 200 mg/dL in a nonstressed, ambulatory subject supports the diagnosis of Diabetes Mellitus. Hematocrit Auto (Bld) [Volum e fraction]Ordered By: Perri Ceja on 11-06-2023 Hematocrit (Bld) [Volume fraction] 38.9 % 34.0-46.4 [facility] Hemoglobin [Mass/volume] in BloodOrdered By: Perri Ceja on 11-06-2023 Hemoglobin (Bld) [Mass/Vol] 13.1 g/dL 11.8-15.4 [facility] Leukocytes [#/volume] correc noah for nucleated erythrocytes in Blood by Automated counOrdered By: Perri Ceja on 11-06-2023 WBC corrected for nucl RBC Auto (Bld) [#/Vol] 8.8 10*3/uL 3.8-11.6 [facility] Lymphocytes Auto (Bld) [#/Vo l]Ordered By: Perri Ceja on 11-06-2023 Lymphocytes (Bld) [#/Vol] 1.5 10*3/uL 1.00-4.8 [facility] Lymphocytes/100 WBC Auto (Bl d)Ordered By: Perri Ceja on 11-06-2023 Lymphocytes/100 WBC (Bld) 17.6 % . [facility] MCH Auto (RBC) [Entitic mass ]Ordered By: Perri Ceja on 11-06-2023 MCH (RBC) [Entitic mass] 28.4 pg 24.7-34.3 [facility] MCHC Auto (RBC) [Mass/Vol]Or dered By: Perri Ceja on 11-06-2023 MCHC (RBC) [Mass/Vol] 33.6 g/dL 32.0-35.0 [facility] MCV Auto (RBC) [Entitic vol] Ordered By: Perri Ceja on 11-06-2023 MCV (RBC) [Entitic vol] 84.6 fL 80-100 [facility] Monocytes Auto (Bld) [#/Vol] Ordered By: Perri Ceja on 11-06-2023 Monocytes (Bld) [#/Vol] 0.6 10*3/uL 0.0-0.8 [facility] Monocytes/100 WBC Auto (Bld) Ordered By: Perri Ceja on 11-06-2023 Monocytes/100 WBC (Bld) 6.6 % . [facility] Neutrophils Auto (Bld) [#/Vo l]Ordered By: Perri Ceja on 11-06-2023 Neutrophils (Bld) [#/Vol] 6.3 10*3/uL 1.8-7.7 [facility] Neutrophils/100 WBC Auto (Bl d)Ordered By: Perri Ceja on 11-06-2023 Neutrophils/100 WBC (Bld) 72.1 % . [facility] No Panel InformationOrdered By: Perri Ceja on 11-06-2023 Estimated GFR (CKD-EPI) 57.919 mL/Min [facility] Creatinine Clearance (Chem N/A [facility] Nucleated erythrocytes [Pres ence] in Blood by Automated countOrdered By: Perri Ceja on 11-06-2023 Nucleated RBC Auto Ql (Bld) 0.1 /100{WBC} 0-0.5 [facility] Platelet mean volume Auto (B ld) [Entitic vol]Ordered By: Perri Ceja on 11-06-2023 Platelet mean volume (Bld) [Entitic vol] 6.9 fL 6.3-10.7 [facility] Platelets Auto (Bld) [#/Vol] Ordered By: Perri Ceja on 11-06-2023 Platelets (Bld) [#/Vol] 393 10*3/uL 150-450 [facility] Potassium [Moles/volume] in Serum or PlasmaOrdered By: Perri Ceja on 11-06-2023 Potassium [Moles/Vol] 3.8 mmol/L 3.5-5.1 [facility] Protein [Mass/volume] in Ser um or PlasmaOrdered By: Perri Ceja on 11-06-2023 Protein [Mass/Vol] 7.7 g/dL 6.4-8.9 [facility] RBC Auto (Bld) [#/Vol]Ordere d By: Perri Ceja on 11-06-2023 RBC (Bld) [#/Vol] 4.60 10*6/uL 3.60-5.00 [facility] Serum or plasma albumin/glob ulin mass ratioOrdered By: Perri Ceja on 11-06-2023 Albumin/Globulin [Mass ratio] 1.6 {ratio} [facility] Serum or plasma anion gap de terminationOrdered By: Perri Ceja on 11-06-2023 Anion gap [Moles/Vol] 12.7 mmol/L 6.0-15.0 [facility] Sodium [Moles/volume] in Ser um or PlasmaOrdered By: Perri Ceja on 11-06-2023 Sodium [Moles/Vol] 139 mmol/L 136-145 [facility] Urea nitrogen [Mass/volume] in Serum or PlasmaOrdered By: Perri Ceja on 11-06-2023 Urea nitrogen [Mass/Vol] 17 mg/dL 7-25 [facility] WBC Auto (Bld) [#/Vol]Ordere d By: Perri Ceja on 11-06-2023 WBC (Bld) [#/Vol] 8.8 10*3/uL 3.8-11.6 [facility] Orders Onlyon 10-02-2023 Orders Only [id number] Antonio Puri i 1975 F Date Provider Department Center 10/02/2023 1971-LU [place] None Family History Problem Relation Age of Onset Fibromyalgia Mother Heart disease Father Hypertension Sister Polycystic kidney disease Sister Hypertension Brother Polycystic kidney disease Brother Family Status - Relation Status Age at Mother Father Sister Brother [facility] Follow-Upon 09-01-2023 Follow-Up [id number] Antonio Puri i 1975 F Date Provider Department Center 09/01/2023 344-SUJIT BERNAL TXP None Family History Problem Relation Age of Onset Fibromyalgia Mother Heart disease Father Hypertension Sister Polycystic kidney disease Sister Hypertension Brother Polycystic kidney disease Brother Family Status - Relation Status Age at Mother Father Sister Brother Level of Service:64837 MT OFFICE/OUTPATIENT ESTABLISHED MOD MDM 30-39 MIN () Reason for Visit and Comments: Kidney Follow-up [] - Patient reports pain all over her body that comes and goes. She would like to discuss swelling in her feet. [facility] BILIRUBIN, DIRECTon 08-26-20 Magnesium [Mass/Vol] 0.1 mg/dL Normal 0-0.2 [facility] Comment on above: Performed By: #### L [id number] #### [facility] , CBC WITH AUTO DIFFERENTIALon 08-26-2023 Basophils (Bld) [#/Vol] 0.05 10*3/uL Normal 0.00-0.20 [facility] Comment on above: Performed By: #### L [id number] #### [facility] ([facility]AK[facility]) [address] [place] [address] Basophils/100 WBC (Bld) 0.6 % Normal 0.0-1.0 [facility] Comment on above: Performed By: #### L [id number] #### [facility] ([facility]) [address] [place] [address] Eosinophils (Bld) [#/Vol] 0.20 10*3/uL Normal 0.00-0.50 [facility] Comment on above: Performed By: #### L [id number] #### [facility] ([facility]) [address] [place] [address] Eosinophils/100 WBC (Bld) 2.5 % Normal 0.0-6.0 [facility] Comment on above: Performed By: #### L [id number] #### [facility] ([facility]) [address] [place] [address] Erythrocyte distribution width (RBC) [Ratio] 14.4 % Normal 11.5-15.0 [facility] Comment on above: Performed By: #### L [id number] #### [facility] ([facility]) [address] [place] [address] ERYTHROCYTE MEAN CORPUSCULAR HEMOGLOBIN CONCENTRATION (G/DL) BY AUTOMATED 32.9 g/dL Normal 32.0-35.0 [facility] Comment on above: Performed By: #### L [id number] #### [facility] ([facility]) [address] [place] [address] Hematocrit (Bld) [Volume fraction] 40.4 % Normal 36.0-48.0 [facility] Comment on above: Performed By: #### L [id number] #### [facility] (BEAKER) [address] [place] [address] Hemoglobin (Bld) [Mass/Vol] 13.3 g/dL Normal 12.0-15.0 [facility] Comment on above: Performed By: #### L [id number] #### [facility] [address] [place] [address] Immature granulocytes (Bld) [#/Vol] 0.06 10*3/uL Normal 0.00-0.20 [facility] Comment on above: Performed By: #### L [id number] #### [facility] (BEAKER) [address] [place] [address] Immature granulocytes/100 WBC (Bld) 0.7 % Normal 0.0-1.0 [facility] Comment on above: Performed By: #### L [id number] #### [facility] (BEAKER) [address] [place] [address] Lymphocytes (Bld) [#/Vol] 1.19 10*3/uL Low 1.20-4.00 [facility] Comment on above: Performed By: #### L [id number] #### [facility] ([facility]ER) [address] [place] [address] Lymphocytes/100 WBC (Bld) 14.6 % Low 20.0-45.0 [facility] Comment on above: Performed By: #### L [id number] #### [facility] (BEAKER) [address] [place] [address] MCH (RBC) [Entitic mass] 28.4 pg Normal 27.0-33.0 [facility] Comment on above: Performed By: #### L [id number] #### [facility] (BEAKER) [address] [place] [address] MCV (RBC) [Entitic vol] 86.1 fL Normal 82.0-98.0 [facility] Comment on above: Performed By: #### L [id number] #### [facility] ([facility]) [address] [place] [address] Monocytes (Bld) [#/Vol] 0.42 10*3/uL Normal 0.10-1.00 [facility] Comment on above: Performed By: #### L [id number] #### [facility] ([facility]) [address] [place] [address] Monocytes/100 WBC (Bld) 5.2 % Normal 5.0-12.0 [facility] Comment on above: Performed By: #### L [id number] #### [facility] ([facility]) [address] [place] [address] Neutrophils (Bld) [#/Vol] 6.22 10*3/uL Normal 1.60-7.60 [facility] Comment on above: Performed By: #### L [id number] #### [facility] ([facility]) [address] [place] [address] Neutrophils/100 WBC (Bld) 76.4 % High 40.0-72.0 [facility] Comment on above: Performed By: #### L [id number] #### [facility] ([facility]) [address] [place] [address] NRBC (PER 100 WBCS) BY AUTOMATED COUNT 0.0 % Normal 0 [facility] Comment on above: Performed By: #### L [id number] #### [facility] ([facility]) [address] [place] [address] PLATELETS (10*3/UL) IN BLOOD AUTOMATED COUNT 374 10*3/uL Normal 150-400 [facility] Comment on above: Performed By: #### L [id number] #### [facility] [address] [place] [address] RBC (Bld) [#/Vol] 4.69 10*6/uL Normal 3.80-5.00 [facility] Comment on above: Performed By: #### L [id number] #### [facility] [address] [place] [address] WBC (Bld) [#/Vol] 8.14 10*3/uL Normal 4.00-10.60 [facility] Comment on above: Performed By: #### L [id number] #### [facility] ([facility]) [address] [place] [address] COMPREHENSIVE METABOLIC PANE Jonathan 08-26-2023 Albumin [Mass/Vol] 4.7 g/dL Normal 3.5-5.7 [facility] Comment on above: Performed By: #### L [id number] #### [facility] [address] [place] [address] ALP [Catalytic activity/Vol] 90 U/L Normal 34-104 [facility] Comment on above: Performed By: #### L [id number] #### [facility] ([facility]) [address] [place] [address] ALT [Catalytic activity/Vol] 26 U/L Normal 7-52 [facility] Comment on above: Performed By: #### L [id number] #### [facility] [address] [place] [address] Anion gap [Moles/Vol] 12 mmol/L Normal 7-20 [facility] Comment on above: Performed By: #### L [id number] #### [facility] ([facility] [address] [place] [address] AST [Catalytic activity/Vol] 22 U/L Normal 13-39 [facility] Comment on above: Performed By: #### L [id number] #### [facility] ([facility]) [address] [place] [address] Bilirubin [Mass/Vol] 0.4 mg/dL Normal 0.3-1.0 [facility] Comment on above: Performed By: #### L [id number] #### [facility] ([facility]) [address] [place] [address] Calcium [Mass/Vol] 9.6 mg/dL Normal 8.6-10.3 [facility] Comment on above: Performed By: #### L [id number] #### [facility] ([facility] [address] [place] [address] Chloride [Moles/Vol] 103 mmol/L Normal 98-107 [facility] Comment on above: Performed By: #### L [id number] #### [facility] ([facility]) [address] [place] [address] CO2 [Moles/Vol] 26 mmol/L Normal 21-31 [facility] Comment on above: Performed By: #### L [id number] #### [facility] ([facility]) [address] [place] [address] Creatinine [Mass/Vol] 1.12 mg/dL Normal 0.60-1.20 [facility] Comment on above: Performed By: #### L [id number] #### [facility] ([facility]) [address] [place] [address] GLOMERULAR FILTRATION RATE ML/MIN/1.73 SQ M.PREDICTED 61.0 mL/min/1.73m*2 Normal >60.0 [facility] Comment on above: Result Comment: [facility]???s estimated glomerular filtration rate (eGFR) will no [...] of individuals. Performed By: #### L [id number] #### [facility] ([facility]) [address] [place] [address] Glucose [Mass/Vol] 125 mg/dL High 70-100 [facility] Comment on above: Performed By: #### L [id number] #### [facility] ([facility]) [address] [place] [address] Potassium [Moles/Vol] 3.1 mmol/L Low 3.5-5.1 [facility] Comment on above: Performed By: #### L [id number] #### [facility] ([facility]) [address] [place] [address] Protein [Mass/Vol] 7.4 g/dL Normal 6.0-8.3 [facility] Comment on above: Performed By: #### L [id number] #### [facility] ([facility]) [address] [place] [address] Sodium [Moles/Vol] 138 mmol/L Normal 136-145 [facility] Comment on above: Performed By: #### L [id number] #### [facility] ([facility]) [address] [place] [address] Urea nitrogen [Mass/Vol] 15 mg/dL Normal 7-25 [facility] Comment on above: Performed By: #### L [id number] #### [facility] ([facility]) [address] [place] [address] UREA NITROGEN/CREATININE (MASS RATIO) IN SER/PLAS 13.4 Normal [facility] Comment on above: Performed By: #### L [id number] #### [facility] ([facility]) [address] [place] [address] HEMOGLOBIN A1Con 08-26-2023 Glucose [Mass/Vol] 108 mg/dL Normal [facility] Comment on above: Performed By: #### L [id number] #### [facility] ([facility]) [address] [place] [address] HbA1c (Bld) [Mass fraction] 5.4 % Normal 4.0-6.0 [facility] Comment on above: Performed By: #### L [id number] #### [facility] ([facility]) [address] [place] [address] LIPID PANELon 08-26-2023 CHOL/HDL 4.7 mg/dL Normal [facility] Comment on above: Performed By: #### L [id number] #### [facility] , Cholesterol [Mass/Vol] 198 mg/dL Normal 120-200 [facility] Comment on above: Performed By: #### L [id number] #### [facility] , Magnesium [Mass/Vol] 248 mg/dL High 40-149 [facility] Comment on above: Result Comment: TRIG LYCERIDE REFERENCE RANGE: 20 YEARS AND OLDER CARDIOVASCULAR RISK LESS THAN 150 mg/dL LOW RISK 150 TO 199 mg/dL BORDERLINE RISK 200 mg/dL AND GREATER HIGH RISK Performed By: #### L [id number] #### [facility] , Magnesium [Mass/Vol] 106 mg/dL Normal 0-160 [facility] Comment on above: Performed By: #### L [id number] #### [facility] , Magnesium [Mass/Vol] 42 mg/dL Normal 23-92 [facility] Comment on above: Performed By: #### L [id number] #### [facility] , NON HDL CHOL. (LDL+VLDL) 156 Normal [facility] Comment on above: Performed By: #### L [id number] #### [facility] , TOTAL VLDL-C 50 mg/dL High 0-40 [facility] Comment on above: Performed By: #### L [id number] #### [facility] , Labon 08-26-2023 Lab [id number] Antonio Puri i 1975 F Date Provider Department Center 08/26/2023 2245-[facility] LAB RESOURCE [facility] [place] Medical C Family History Problem Relation Age of Onset Fibromyalgia Mother Heart disease Father Hypertension Sister Polycystic kidney disease Sister Hypertension Brother Polycystic kidney disease Brother Family Status - Relation Status Age at Mother Father Sister Brother Normal [facility] MAGNESIUMon 08-26-2023 Magnesium [Mass/Vol] 1.5 mg/dL Low 1.9-2.7 [facility] Comment on above: Performed By: #### L [id number] #### [facility] ([facility]) [address] [place] [address] PHOSPHORUSon 08-26-2023 Magnesium [Mass/Vol] 2.9 mg/dL Normal 2.5-5.0 [facility] Comment on above: Performed By: #### L [id number] #### [facility] ([facility]) [address] [place] [address] TACROLIMUS LEVELon 3 Tacrolimus (Bld) [Mass/Vol] 9.2 ng/mL Normal 5.0-20.0 [facility] Comment on above: Result Comment: The [employer] Tacrolimus assay is a delayed one-step immunoassay for the quantitative determination of tacrolimus in human whole blood using the chemiluminescent microparticle immunoassay (CMIA) technology with flexible assay protocols, referred to as Chemiflex. Performed By: #### L [id number] #### [facility] , URIC ACIDon 08-26-2023 Magnesium [Mass/Vol] 5.1 mg/dL Normal 2.3-6.6 [facility] Comment on above: Performed By: #### L [id number] #### [facility] ([facility]) [address] [place] [address] COMPREHENSIVE METABOLIC PANE Jonathan 08-06-2023 Albumin [Mass/Vol] 4.7 g/dL Normal 3.5-5.7 [facility] Comment on above: Performed By: #### L [id number] #### [facility] , ALP [Catalytic activity/Vol] 85 U/L Normal 34-104 [facility] Comment on above: Performed By: #### L [id number] #### [facility] , ALT [Catalytic activity/Vol] 25 U/L Normal 7-52 [facility] Comment on above: Performed By: #### L [id number] #### [facility] , Anion gap [Moles/Vol] 14 mmol/L Normal 7-20 [facility] Comment on above: Performed By: #### L [id number] #### [facility] , AST [Catalytic activity/Vol] 23 U/L Normal 13-39 [facility] Comment on above: Performed By: #### L [id number] #### [facility] , Bilirubin [Mass/Vol] 0.5 mg/dL Normal 0.3-1.0 [facility] Comment on above: Performed By: #### L [id number] #### [facility] , Calcium [Mass/Vol] 9.5 mg/dL Normal 8.6-10.3 [facility] Comment on above: Performed By: #### L [id number] #### [facility] , Chloride [Moles/Vol] 105 mmol/L Normal 98-107 [facility] Comment on above: Performed By: #### L [id number] #### [facility] , CO2 [Moles/Vol] 21 mmol/L Normal 21-31 [facility] Comment on above: Performed By: #### L [id number] #### [facility] , Creatinine [Mass/Vol] 1.23 mg/dL High 0.60-1.20 [facility] Comment on above: Performed By: #### L [id number] #### [facility] , GLOMERULAR FILTRATION RATE ML/MIN/1.73 SQ M.PREDICTED 54.5 mL/min/1.73m*2 Low >60.0 [facility] Comment on above: Result Comment: [facility]???s estimated glomerular filtration rate (eGFR) will no [...] group of individuals. Performed By: #### L [id number] #### [facility] , Glucose [Mass/Vol] 133 mg/dL High 70-100 [facility] Comment on above: Performed By: #### L [id number] #### [facility] , Potassium [Moles/Vol] 3.4 mmol/L Low 3.5-5.1 [facility] Comment on above: Performed By: #### L [id number] #### [facility] , Protein [Mass/Vol] 7.4 g/dL Normal 6.0-8.3 [facility] Comment on above: Performed By: #### L [id number] #### [facility] , Sodium [Moles/Vol] 137 mmol/L Normal 136-145 [facility] Comment on above: Performed By: #### L [id number] #### [facility] , Urea nitrogen [Mass/Vol] 14 mg/dL Normal 7-25 [facility] Comment on above: Performed By: #### L [id number] #### [facility] , UREA NITROGEN/CREATININE (MASS RATIO) IN SER/PLAS 11.4 [facility] Comment on above: Performed By: #### L [id number] #### [facility] , Labon 08-06-2023 Lab [id number] Antonio Puri i 1975 F Date Provider Department Center 08/06/2023 2245-[facility] LAB RESOURCE [facility] [place] Medical C Family History Problem Relation Age of Onset Fibromyalgia Mother Heart disease Father Hypertension Sister Polycystic kidney disease Sister Hypertension Brother Polycystic kidney disease Brother Family Status - Relation Status Age at Mother Father Sister Brother Normal [facility] Orders Onlyon 08-06-2023 Orders Only [id number] Antonio Puri i 1975 F Date Provider Department Center 08/06/2023 3373-TAINA CLARKE None Family History Problem Relation Age of Onset Fibromyalgia Mother Heart disease Father Hypertension Sister Polycystic kidney disease Sister Hypertension Brother Polycystic kidney disease Brother Family Status - Relation Status Age at Mother Father Sister Brother Normal [facility] SINGLE ANTIGEN CLASS Ion AB SCREEN COMMENTS No Class I donor spe cific antibody identified Normal [facility] Comment on above: Order Comment: To be used after initial monthly order expires Performed By: #### L [id number] #### [facility] ([facility]) [address] [place] [address] CLASS I TESTED DATE Normal [facility] Comment on above: Order Comment: To be used after initial monthly order expires Performed By: #### L [id number] #### [facility] ([facility]) [address] [place] [address] SIGNED BY Signed by Nelson escamilla [facility] [place](ASCP), [facility] Comment on above: Order Comment: To be used after initial monthly order expires Result Comment: Clas s I Antigen Microbeads Performed By: #### L [id number] #### [facility] ([facility]) [address] [place] [address] Performed By: #### L [id number] #### [facility] ([facility]) [address] [facility] [address] SINGLE ANTIGEN CLASS 1 TEST METHOD Class I Single Antigen Normal [facility] Comment on above: Order Comment: To be used after initial monthly order expires Performed By: #### L [id number] #### [facility] ([facility]) [address] [place] [address] SINGLE ANTIGEN CLASS IIon AB SCREEN COMMENTS No Class II donor specific antibody identified [facility] Comment on above: Order Comment: To be used after initial monthly order expires Performed By: #### L [id number] #### [facility] ([facility]) [address] [place] [address] CLASS II TESTED DATE [facility] Comment on above: Order Comment: To be used after initial monthly order expires Performed By: #### L [id number] #### [facility] ([facility]) [address] [place] [address] SINGLE ANTIGEN CLASS 2 TEST METHOD Class II Single Antigen [facility] Comment on above: Order Comment: To be used after initial monthly order expires Result Comment: Clas s II Antigen Microbeads Performed By: #### L [id number] #### [facility] ([facility]) [address] [place] [address] MM screening mammo BI w/CADo n 07-30-2023 MM screening mammo BI w/CAD [facility] Main [place] [address] [place], [place] [id number] Mammography Report Signed Patient: Mandeep Puri MR#: [id number] 15 : 1975 Acct:[id number] Age/Sex: 47 / F ADM Date: 07/30/23 Loc: [place] Room: Type: [facility] Attending Dr: Referral Self Copies to: Ming Espinoza DO SELF,REFERRAL Blake Hinojosa DO Ordering Provider: SELF,REFERRAL Date of Service: [...] mammogram. Impression dictated by: Evan Messina Jr., D.OSon07/30/2023 4:05 PM Dictation Location: DW01 Transcribed By: SALMA 07/30/23 160 Dictated By: Evan Messina Jr, DO 07/30/23 1604 Signed By: 07/30/23 160 [facility] CBC WITH AUTO DIFFERENTIALon 07-24-2023 Basophils (Bld) [#/Vol] 0.06 10*3/uL Normal 0.00-0.20 [facility] Comment on above: Performed By: #### L [id number] #### [facility] , Basophils/100 WBC (Bld) 0.7 % Normal 0.0-1.0 [facility] Comment on above: Performed By: #### L [id number] #### [facility] , Eosinophils (Bld) [#/Vol] 0.28 10*3/uL Normal 0.00-0.50 [facility] Comment on above: Performed By: #### L [id number] #### [facility] , Eosinophils/100 WBC (Bld) 3.3 % Normal 0.0-6.0 [facility] Comment on above: Performed By: #### L [id number] #### [facility] , Erythrocyte distribution width (RBC) [Ratio] 14.6 % Normal 11.5-15.0 [facility] Comment on above: Performed By: #### L [id number] #### [facility] , ERYTHROCYTE MEAN CORPUSCULAR HEMOGLOBIN CONCENTRATION (G/DL) BY AUTOMATED 33.2 g/dL Normal 32.0-35.0 [facility] Comment on above: Performed By: #### L [id number] #### [facility] , Hematocrit (Bld) [Volume fraction] 39.7 % Normal 36.0-48.0 [facility] Comment on above: Performed By: #### L [id number] #### [facility] , Hemoglobin (Bld) [Mass/Vol] 13.2 g/dL Normal 12.0-15.0 [facility] Comment on above: Performed By: #### L [id number] #### [facility] , Immature granulocytes (Bld) [#/Vol] 0.09 10*3/uL Normal 0.00-0.20 [facility] Comment on above: Performed By: #### L [id number] #### [facility] , Immature granulocytes/100 WBC (Bld) 1.1 % High 0.0-1.0 [facility] Comment on above: Performed By: #### L [id number] #### [facility] , Lymphocytes (Bld) [#/Vol] 1.41 10*3/uL Normal 1.20-4.00 [facility] Comment on above: Performed By: #### L [id number] #### [facility] , Lymphocytes/100 WBC (Bld) 16.5 % Low 20.0-45.0 [facility] Comment on above: Performed By: #### L [id number] #### [facility] , MCH (RBC) [Entitic mass] 28.9 pg Normal 27.0-33.0 [facility] Comment on above: Performed By: #### L [id number] #### [facility] , MCV (RBC) [Entitic vol] 86.9 fL Normal 82.0-98.0 [facility] Comment on above: Performed By: #### L [id number] #### [facility] , Monocytes (Bld) [#/Vol] 0.44 10*3/uL Normal 0.10-1.00 [facility] Comment on above: Performed By: #### L [id number] #### [facility] , Monocytes/100 WBC (Bld) 5.1 % Normal 5.0-12.0 [facility] Comment on above: Performed By: #### L [id number] #### [facility] , Neutrophils (Bld) [#/Vol] 6.28 10*3/uL Normal 1.60-7.60 [facility] Comment on above: Performed By: #### L [id number] #### [facility] , Neutrophils/100 WBC (Bld) 73.3 % High 40.0-72.0 [facility] Comment on above: Performed By: #### L [id number] #### [facility] , NRBC (PER 100 WBCS) BY AUTOMATED COUNT 0.0 % Normal 0 [facility] Comment on above: Performed By: #### L [id number] #### [facility] , PLATELETS (10*3/UL) IN BLOOD AUTOMATED COUNT 371 10*3/uL Normal 150-400 [facility] Comment on above: Performed By: #### L [id number] #### [facility] , RBC (Bld) [#/Vol] 4.57 10*6/uL Normal 3.80-5.00 [facility] Comment on above: Performed By: #### L [id number] #### [facility] , WBC (Bld) [#/Vol] 8.56 10*3/uL Normal 4.00-10.60 [facility] Comment on above: Performed By: #### L [id number] #### [facility] , Labon 07-24-2023 Lab [id number] Antonio Puri i 1975 F Date Provider Department [place] 07/24/2023 2245-[facility] OPD LAB RESOURCE [facility] OPD [facility] Family History Problem Relation Age of Onset Fibromyalgia Mother Heart disease Father Hypertension Sister Polycystic kidney disease Sister Hypertension Brother Polycystic kidney disease Brother Family Status - Relation Status Age at Mother Father Sister Brother Normal [facility] Orders Onlyon 07-24-2023 Orders Only [id number] Antonio Puri i 1975 Date Provider Department Center 07/24/2023 1971-[facility] TXP None Family History Problem Relation Age of Onset Fibromyalgia Mother Heart disease Father Hypertension Sister Polycystic kidney disease Sister Hypertension Brother Polycystic kidney disease Brother Family Status - Relation Status Age at Mother Father Sister Brother Normal [facility] BASIC METABOLIC PANELon 07-06 Anion gap [Moles/Vol] 16 mmol/L Normal 7-20 [facility] Comment on above: Performed By: #### L [id number] #### [facility] , Calcium [Mass/Vol] 9.7 mg/dL Normal 8.6-10.3 [facility] Comment on above: Performed By: #### L [id number] #### [facility] , Chloride [Moles/Vol] 104 mmol/L Normal 98-107 [facility] Comment on above: Performed By: #### L [id number] #### [facility] , CO2 [Moles/Vol] 23 mmol/L Normal 21-31 [facility] Comment on above: Performed By: #### L [id number] #### [facility] , Creatinine [Mass/Vol] 1.18 mg/dL Normal 0.60-1.20 [facility] Comment on above: Performed By: #### L [id number] #### [facility] , GLOMERULAR FILTRATION RATE ML/MIN/1.73 SQ M.PREDICTED 57.3 mL/min/1.73m*2 Low >60.0 [facility] Comment on above: Result Comment: [facility]???s estimated glomerular filtration rate (eGFR) will no [...] group of individuals. Performed By: #### L [id number] #### [facility] , Glucose [Mass/Vol] 134 mg/dL High 70-100 [facility] Comment on above: Performed By: #### L [id number] #### [facility] , Potassium [Moles/Vol] 3.5 mmol/L Normal 3.5-5.1 [facility] Comment on above: Performed By: #### L [id number] #### [facility] , Sodium [Moles/Vol] 139 mmol/L Normal 136-145 [facility] Comment on above: Performed By: #### L [id number] #### [facility] , Urea nitrogen [Mass/Vol] 16 mg/dL Normal 7-25 [facility] Comment on above: Performed By: #### L [id number] #### [facility] , UREA NITROGEN/CREATININE (MASS RATIO) IN SER/PLAS 13.6 Normal [facility] Comment on above: Performed By: #### L [id number] #### [facility] , CBC WITH AUTO DIFFERENTIALon 07-17-2023 Basophils (Bld) [#/Vol] 0.05 10*3/uL Normal 0.00-0.20 [facility] Comment on above: Performed By: #### L [id number] #### [facility] (BEAKER) [address] [place] [address] Basophils/100 WBC (Bld) 0.6 % Normal 0.0-1.0 [facility] Comment on above: Performed By: #### L [id number] #### [facility] (BEAKER) [address] [place] [address] Eosinophils (Bld) [#/Vol] 0.21 10*3/uL Normal 0.00-0.50 [facility] Comment on above: Performed By: #### L [id number] #### [facility] (BEAKER) [address] [place] [address] Eosinophils/100 WBC (Bld) 2.7 % Normal 0.0-6.0 [facility] Comment on above: Performed By: #### L [id number] #### [facility] (BEAKER) [address] [place] [address] Erythrocyte distribution width (RBC) [Ratio] 14.3 % Normal 11.5-15.0 [facility] Comment on above: Performed By: #### L [id number] #### [facility] (BEAKER) [address] [place] [address] ERYTHROCYTE MEAN CORPUSCULAR HEMOGLOBIN CONCENTRATION (G/DL) BY AUTOMATED 32.6 g/dL Normal 32.0-35.0 [facility] Comment on above: Performed By: #### L [id number] #### [facility] (BEAKER) [address] [place] [address] Hematocrit (Bld) [Volume fraction] 38.3 % Normal 36.0-48.0 [facility] Comment on above: Performed By: #### L [id number] #### [facility] ([facility]) [address] [place] [address] Hemoglobin (Bld) [Mass/Vol] 12.5 g/dL Normal 12.0-15.0 [facility] Comment on above: Performed By: #### L [id number] #### [facility] ([facility]) [address] [place] [address] Immature granulocytes (Bld) [#/Vol] 0.10 10*3/uL Normal 0.00-0.20 [facility] Comment on above: Performed By: #### L [id number] #### [facility] ([facility]) [address] [place] [address] Immature granulocytes/100 WBC (Bld) 1.3 % High 0.0-1.0 [facility] Comment on above: Performed By: #### L [id number] #### [facility] ([facility]) [address] [place] [address] Lymphocytes (Bld) [#/Vol] 1.37 10*3/uL Normal 1.20-4.00 [facility] Comment on above: Performed By: #### L [id number] #### [facility] ([facility]) [address] [place] [address] Lymphocytes/100 WBC (Bld) 17.4 % Low 20.0-45.0 [facility] Comment on above: Performed By: #### L [id number] #### [facility] [address] [place] [address] MCH (RBC) [Entitic mass] 28.9 pg Normal 27.0-33.0 [facility] Comment on above: Performed By: #### L [id number] #### [facility] [address] [place] [address] MCV (RBC) [Entitic vol] 88.5 fL Normal 82.0-98.0 [facility] Comment on above: Performed By: #### L [id number] #### [facility] ([facility]ER) [address] [place] [address] Monocytes (Bld) [#/Vol] 0.44 10*3/uL Normal 0.10-1.00 [facility] Comment on above: Performed By: #### L [id number] #### [facility] (BEAKER) [address] [place] [address] Monocytes/100 WBC (Bld) 5.6 % Normal 5.0-12.0 [facility] Comment on above: Performed By: #### L [id number] #### [facility] (BE[facility]ER) [address] [place] [address] Neutrophils (Bld) [#/Vol] 5.69 10*3/uL Normal 1.60-7.60 [facility] Comment on above: Performed By: #### L [id number] #### [facility] ([facility]) [address] [place] [address] Neutrophils/100 WBC (Bld) 72.4 % High 40.0-72.0 [facility] Comment on above: Performed By: #### L [id number] #### [facility] ([facility]) [address] [place] [address] NRBC (PER 100 WBCS) BY AUTOMATED COUNT 0.0 % Normal 0 [facility] Comment on above: Performed By: #### L [id number] #### [facility] [address] [place] [address] PLATELETS (10*3/UL) IN BLOOD AUTOMATED COUNT 349 10*3/uL Normal 150-400 [facility] Comment on above: Performed By: #### L [id number] #### [facility] [address] [place] [address] RBC (Bld) [#/Vol] 4.33 10*6/uL Normal 3.80-5.00 [facility] Comment on above: Performed By: #### L [id number] #### [facility] ([facility]) [address] [place] [address] WBC (Bld) [#/Vol] 7.86 10*3/uL Normal 4.00-10.60 [facility] Comment on above: Performed By: #### L [id number] #### [facility] ([facility]) [address] [place] [address] HEPATIC FUNCTION PANELon Albumin [Mass/Vol] 4.4 g/dL Normal 3.5-5.7 [facility] Comment on above: Performed By: #### L [id number] #### [facility] ([facility]) [address] [place] [address] ALP [Catalytic activity/Vol] 83 U/L Normal 34-104 [facility] Comment on above: Performed By: #### L [id number] #### [facility] ([facility]) [address] [place] [address] ALT [Catalytic activity/Vol] 25 U/L Normal 7-52 [facility] Comment on above: Performed By: #### L [id number] #### [facility] ([facility]) [address] [place] [address] AST [Catalytic activity/Vol] 21 U/L Normal 13-39 [facility] Comment on above: Performed By: #### L [id number] #### [facility] ([facility]) [address] [place] [address] Bilirubin [Mass/Vol] 0.4 mg/dL Normal 0.3-1.0 [facility] Comment on above: Performed By: #### L [id number] #### [facility] ([facility]) [address] [place] [address] Magnesium [Mass/Vol] 0.1 mg/dL Normal 0-0.2 [facility] Comment on above: Performed By: #### L [id number] #### [facility] ([facility]) [address] [place] [address] Protein [Mass/Vol] 7.3 g/dL Normal 6.0-8.3 [facility] Comment on above: Performed By: #### L [id number] #### [facility] [address] [place] [address] Lab[place] 07-17-2023 Lab [id number] Antonio Puri sarath 1975 F Date Provider Department Center 07/17/2023 2245-[facility] OPD LAB RESOURCE [facility] OPD [facility] Family History Problem Relation Age of Onset Fibromyalgia Mother Heart disease Father Hypertension Sister Polycystic kidney disease Sister Hypertension Brother Polycystic kidney disease Brother Family Status - Relation Status Age at Mother Father Sister Brother Normal [facility] MAGNESIUMon 07-17-2023 Magnesium [Mass/Vol] 1.6 mg/dL Low 1.9-2.7 [facility] Comment on above: Performed By: #### L [id number] #### [facility] , Orders Onlyon 07-17-2023 Orders Only [id number] Antonio Puri sarath 1975 Date Provider Department Center 07/17/2023 1971-[facility] TXP None Family History Problem Relation Age of Onset Fibromyalgia Mother Heart disease Father Hypertension Sister Polycystic kidney disease Sister Hypertension Brother Polycystic kidney disease Brother Family Status - Relation Status Age at Mother Father Sister Brother Normal [facility] PHOSPHORUSon 07-17-2023 Magnesium [Mass/Vol] 3.3 mg/dL Normal 2.5-5.0 [facility] Comment on above: Performed By: #### L [id number] #### [facility] (BEAKER) [address] [place] [address] TACROLIMUS LEVELon Tacrolimus (Bld) [Mass/Vol] 6.5 ng/mL Normal 5.0-20.0 [facility] Comment on above: Result Comment: The [employer] Tacrolimus assay is a delayed one-step immunoassay for the quantitative determination of tacrolimus in human whole blood using the chemiluminescent microparticle immunoassay (CMIA) technology with flexible assay protocols, referred to as Chemiflex. Performed By: #### L [id number] #### [facility] (BEAKER) [address] [place] [address] URIC ACIDon 07-17-2023 Magnesium [Mass/Vol] 4.9 mg/dL Normal 2.3-6.6 [facility] Comment on above: Performed By: #### L [id number] #### [facility] , 29on 07-16-2023 29 Addended by: LU STEPHENS on: 07/16/2023 03:23 PM Modules accepted: Orders Normal [facility] Documentationon 07-16-2023 Documentation [id number] Antonio Puri sarath 1975 F Date Provider Department Center 07/16/2023 1971-[facility] TXP None Family History Problem Relation Age of Onset Fibromyalgia Mother Heart disease Father Hypertension Sister Polycystic kidney disease Sister Hypertension Brother Polycystic kidney disease Brother Family Status - Relation Status Age at Mother Father Sister Brother Reason for Visit and Comments: Kidney Follow-up [[id number]] [facility] BASIC METABOLIC PANELon 06-07 Anion gap [Moles/Vol] 13 mmol/L Normal 7-20 [facility] Comment on above: Performed By: #### L [id number] #### [facility] , Calcium [Mass/Vol] 9.6 mg/dL Normal 8.6-10.3 [facility] Comment on above: Performed By: #### L [id number] #### [facility] , Chloride [Moles/Vol] 102 mmol/L Normal 98-107 [facility] Comment on above: Performed By: #### L [id number] #### [facility] , CO2 [Moles/Vol] 25 mmol/L Normal 21-31 [facility] Comment on above: Performed By: #### L [id number] #### [facility] , Creatinine [Mass/Vol] 1.26 mg/dL High 0.60-1.20 [facility] Comment on above: Performed By: #### L [id number] #### [facility] , GLOMERULAR FILTRATION RATE ML/MIN/1.73 SQ M.PREDICTED 53.0 mL/min/1.73m*2 Low >60.0 [facility] Comment on above: Result Comment: [facility]???s estimated glomerular filtration rate (eGFR) will no [...] group of individuals. Performed By: #### L [id number] #### [facility] , Glucose [Mass/Vol] 128 mg/dL High 70-100 [facility] Comment on above: Performed By: #### L [id number] #### [facility] , Potassium [Moles/Vol] 3.1 mmol/L Low 3.5-5.1 [facility] Comment on above: Performed By: #### L [id number] #### [facility] , Sodium [Moles/Vol] 137 mmol/L Normal 136-145 [facility] Comment on above: Performed By: #### L [id number] #### [facility] , Urea nitrogen [Mass/Vol] 14 mg/dL Normal 7-25 [facility] Comment on above: Performed By: #### L [id number] #### [facility] , UREA NITROGEN/CREATININE (MASS RATIO) IN SER/PLAS 11.1 Normal [facility] Comment on above: Performed By: #### L [id number] #### [facility] , CBC WITH AUTO DIFFERENTIALon 06-28-2023 Basophils (Bld) [#/Vol] 0.06 10*3/uL Normal 0.00-0.20 [facility] Comment on above: Performed By: #### L [id number] #### [facility] (BEAKER) [address] [place] [address] Basophils/100 WBC (Bld) 0.6 % Normal 0.0-1.0 [facility] Comment on above: Performed By: #### L [id number] #### [facility] [address] [place] [address] Eosinophils (Bld) [#/Vol] 0.18 10*3/uL Normal 0.00-0.50 [facility] Comment on above: Performed By: #### L [id number] #### [facility] ([facility]) [address] [address] Eosinophils/100 WBC (Bld) 1.8 % Normal 0.0-6.0 [facility] Comment on above: Performed By: #### L [id number] #### [facility] ([facility]) [address] [address] Erythrocyte distribution width (RBC) [Ratio] 14.5 % Normal 11.5-15.0 [facility] Comment on above: Performed By: #### L [id number] #### [facility] ([facility]) [address] [place] [address] ERYTHROCYTE MEAN CORPUSCULAR HEMOGLOBIN CONCENTRATION (G/DL) BY AUTOMATED 33.1 g/dL Normal 32.0-35.0 [facility] Comment on above: Performed By: #### L [id number] #### [facility] ([facility]) [address] [place] [address] Hematocrit (Bld) [Volume fraction] 40.5 % Normal 36.0-48.0 [facility] Comment on above: Performed By: #### L [id number] #### [facility] [address] [facility] [place] [address] Hemoglobin (Bld) [Mass/Vol] 13.4 g/dL Normal 12.0-15.0 [facility] Comment on above: Performed By: #### L [id number] #### [facility] (BEAKER) [address] [facility] [place] [address] Immature granulocytes (Bld) [#/Vol] 0.13 10*3/uL Normal 0.00-0.20 [facility] Comment on above: Performed By: #### L [id number] #### [facility] [address] [place] [address] Immature granulocytes/100 WBC (Bld) 1.3 % High 0.0-1.0 [facility] Comment on above: Performed By: #### L [id number] #### [facility] [address] [place] [address] Lymphocytes (Bld) [#/Vol] 1.30 10*3/uL Normal 1.20-4.00 [facility] Comment on above: Performed By: #### L [id number] #### [facility] ([facility]) [address] [place] [address] Lymphocytes/100 WBC (Bld) 13.3 % Low 20.0-45.0 [facility] Comment on above: Performed By: #### L [id number] #### [facility] ([facility]) [address] [place] [address] MCH (RBC) [Entitic mass] 29.2 pg Normal 27.0-33.0 [facility] Comment on above: Performed By: #### L [id number] #### [facility] ([facility]) [address] [place] [address] MCV (RBC) [Entitic vol] 88.2 fL Normal 82.0-98.0 [facility] Comment on above: Performed By: #### L [id number] #### [facility] ([facility]) [address] [place] [address] Monocytes (Bld) [#/Vol] 0.51 10*3/uL Normal 0.10-1.00 [facility] Comment on above: Performed By: #### L [id number] #### [facility] [address] [place] [address] Monocytes/100 WBC (Bld) 5.2 % Normal 5.0-12.0 [facility] Comment on above: Performed By: #### L [id number] #### [facility] ([facility]) [address] [place] [address] Neutrophils (Bld) [#/Vol] 7.62 10*3/uL High 1.60-7.60 [facility] Comment on above: Performed By: #### L [id number] #### [facility] ([facility]) [address] [place] [address] Neutrophils/100 WBC (Bld) 77.8 % High 40.0-72.0 [facility] Comment on above: Performed By: #### L [id number] #### [facility] ([facility]) [address] [place] [address] NRBC (PER 100 WBCS) BY AUTOMATED COUNT 0.0 % Normal 0 [facility] Comment on above: Performed By: #### L [id number] #### [facility] ([facility]) [address] [place] [address] PLATELETS (10*3/UL) IN BLOOD AUTOMATED COUNT 334 10*3/uL Normal 150-400 [facility] Comment on above: Performed By: #### L [id number] #### [facility] ([facility]) [address] [place] [address] RBC (Bld) [#/Vol] 4.59 10*6/uL Normal 3.80-5.00 [facility] Comment on above: Performed By: #### L [id number] #### [facility] ([facility]) [address] [place] [address] WBC (Bld) [#/Vol] 9.80 10*3/uL Normal 4.00-10.60 [facility] Comment on above: Performed By: #### L [id number] #### [facility] ([facility]) [address] [place] [address] HEPATIC FUNCTION PANELon Albumin [Mass/Vol] 4.7 g/dL Normal 3.5-5.7 [facility] Comment on above: Performed By: #### L [id number] #### [facility] , ALP [Catalytic activity/Vol] 91 U/L Normal 34-104 [facility] Comment on above: Performed By: #### L [id number] #### [facility] , ALT [Catalytic activity/Vol] 29 U/L Normal 7-52 [facility] Comment on above: Performed By: #### L [id number] #### [facility] , AST [Catalytic activity/Vol] 25 U/L Normal 13-39 [facility] Comment on above: Performed By: #### L [id number] #### [facility] , Bilirubin [Mass/Vol] 0.5 mg/dL Normal 0.3-1.0 [facility] Comment on above: Performed By: #### L [id number] #### [facility] , Magnesium [Mass/Vol] 0.1 mg/dL Normal 0-0.2 [facility] Comment on above: Performed By: #### L [id number] #### [facility] , Protein [Mass/Vol] 7.9 g/dL Normal 6.0-8.3 [facility] Comment on above: Performed By: #### L [id number] #### [facility] , LIPID PANELon 06-28-2023 CHOL/HDL 4.1 mg/dL Normal [facility] Comment on above: Performed By: #### L [id number] #### [facility] TISSUE TYPING (HISTOTRAC) [address] Cholesterol [Mass/Vol] 192 mg/dL Normal 120-200 [facility] Comment on above: Performed By: #### L [id number] #### [facility] TISSUE TYPING (HISTOTRAC) [address] [place] [address] [facility] Magnesium [Mass/Vol] 228 mg/dL High 40-149 [facility] Comment on above: Result Comment: TRIG LYCERIDE REFERENCE RANGE: 20 YEARS AND OLDER CARDIOVASCULAR RISK LESS THAN 150 mg/dL LOW RISK 150 TO 199 mg/dL BORDERLINE RISK 200 mg/dL AND GREATER HIGH RISK Performed By: #### L [id number] #### [facility] TISSUE TYPING (HISTOTRAC) [address] [place] [address] [place] Magnesium [Mass/Vol] 99 mg/dL Normal 0-160 [facility] Comment on above: Performed By: #### L [id number] #### [facility] TISSUE TYPING (HISTOTRAC) [address] [place] [address] [facility] Magnesium [Mass/Vol] 47 mg/dL Normal 23-92 [facility] Comment on above: Performed By: #### L [id number] #### [facility] TISSUE TYPING (HISTOTRAC) [address] [place] [address] [facility] NON HDL CHOL. (LDL+VLDL) 145 Normal [facility] Comment on above: Performed By: #### L [id number] #### [facility] TISSUE TYPING (HISTOTRAC) [address] [place] [address] [facility] TOTAL VLDL-C 46 mg/dL High 0-40 [facility] Comment on above: Performed By: #### L [id number] #### [facility] TISSUE TYPING (HISTOTRAC) [address] [place] [address] [place] Labon 06-28-2023 Lab [id number] Antonio Puri i 1975 F Date Provider Department Center 06/28/2023 2245-[facility] OPD LAB RESOURCE [facility] Family History Problem Relation Age of Onset Fibromyalgia Mother Heart disease Father Hypertension Sister Polycystic kidney disease Sister Hypertension Brother Polycystic kidney disease Brother Family Status - Relation Status Age at Mother Father Sister Brother Normal [facility] MAGNESIUMon 06-28-2023 Magnesium [Mass/Vol] 1.4 mg/dL Low 1.9-2.7 [facility] Comment on above: Performed By: #### L [id number] #### [facility] (BEAKER) [address] [place] [address] PHOSPHORUSon 06-28-2023 Magnesium [Mass/Vol] 2.7 mg/dL Normal 2.5-5.0 [facility] Comment on above: Performed By: #### L [id number] #### [facility] (BEAKER) [address] [place] [address] TACROLIMUS LEVELon Tacrolimus (Bld) [Mass/Vol] 6.9 ng/mL Normal 5.0-20.0 [facility] Comment on above: Result Comment: The MARC[employer] Tacrolimus assay is a delayed one-step immunoassay for the quantitative determination of tacrolimus in human whole blood using the chemiluminescent microparticle immunoassay (CMIA) technology with flexible assay protocols, referred to as Chemiflex. Performed By: #### L [id number] #### [facility] TISSUE TYPING (HISTOTRAC) [address] [place] [address] [place] URIC ACIDon 06-28-2023 Magnesium [Mass/Vol] 5.0 mg/dL Normal 2.3-6.6 [facility] Comment on above: Performed By: #### L [id number] #### [facility] ([facility]) [address] [place] [address] 36on 06-23-2023 36 I reviewed the case with the resident. I agree with the assessment and plan as documented in the resident's note. Ming Kidd, PharmD, BCTXP Normal [facility] Telephoneon 06-17-2023 Telephone [phone] Antonio Puri sarath 1975 F Date Provider Department Center 06/17/2023 LIAM CREWS TXCaridad None Family History Problem Relation Age of Onset Fibromyalgia Mother Heart disease Father Hypertension Sister Polycystic kidney disease Sister Hypertension Brother Polycystic kidney disease Brother Family Status - Relation Status Age at Mother Father Sister Brother Reason for Visit and Comments: Transplant Pharmacist - Drug Information [[id number]] Normal [facility] BASIC METABOLIC PANELon 05-07 Anion gap [Moles/Vol] 13 mmol/L Normal 7-20 [facility] Comment on above: Performed By: #### L [id number] #### [facility] (BEAKER) [address] [place] [address] Calcium [Mass/Vol] 9.5 mg/dL Normal 8.6-10.3 [facility] Comment on above: Performed By: #### L [id number] #### [facility] ([facility] [address] [place] [address] Chloride [Moles/Vol] 101 mmol/L Normal 98-107 [facility] Comment on above: Performed By: #### L [id number] #### [facility] ([facility]) [address] [place] [address] CO2 [Moles/Vol] 27 mmol/L Normal 21-31 [facility] Comment on above: Performed By: #### L [id number] #### [facility] ([facility]) [address] [place] [address] Creatinine [Mass/Vol] 1.28 mg/dL High 0.60-1.20 [facility] Comment on above: Performed By: #### L [id number] #### [facility] ([facility]) [address] [place] [address] GLOMERULAR FILTRATION RATE ML/MIN/1.73 SQ M.PREDICTED 52.0 mL/min/1.73m*2 Low >60.0 [facility] Comment on above: Result Comment: [facility]???s estimated glomerular filtration rate (eGFR) will no [...] group of individuals. Performed By: #### L [id number] #### [facility] ([facility] [address] [place] [address] Glucose [Mass/Vol] 163 mg/dL High 70-100 [facility] Comment on above: Performed By: #### L [id number] #### [facility] ([facility] [address] [place] [address] Potassium [Moles/Vol] 3.1 mmol/L Low 3.5-5.1 [facility] Comment on above: Performed By: #### L [id number] #### [facility] ([facility] [address] [place] [address] Sodium [Moles/Vol] 138 mmol/L Normal 136-145 [facility] Comment on above: Performed By: #### L [id number] #### [facility] ([facility] [address] [place] [address] Urea nitrogen [Mass/Vol] 18 mg/dL Normal 7-25 [facility] Comment on above: Performed By: #### L [id number] #### [facility] ([facility]) [address] [place] [address] UREA NITROGEN/CREATININE (MASS RATIO) IN SER/PLAS 14.1 Normal [facility] Comment on above: Performed By: #### L [id number] #### [facility] ([facility] [address] [place] [address] CBC WITH AUTO DIFFERENTIALon 05-29-2023 Basophils (Bld) [#/Vol] 0.06 10*3/uL Normal 0.00-0.20 [facility] Comment on above: Performed By: #### L [id number] #### [facility] TISSUE TYPING (HISTOTRAC) [address] [place] [address] [place] Basophils/100 WBC (Bld) 0.6 % Normal 0.0-1.0 [facility] Comment on above: Performed By: #### L [id number] #### [facility] TISSUE TYPING (HISTOTRAC) [address] [place] [address] [place] Eosinophils (Bld) [#/Vol] 0.18 10*3/uL Normal 0.00-0.50 [facility] Comment on above: Performed By: #### L [id number] #### [facility] TISSUE TYPING (HISTOTRAC) [address] [place] [address] [place] Eosinophils/100 WBC (Bld) 1.9 % Normal 0.0-6.0 [facility] Comment on above: Performed By: #### L [id number] #### [facility] TISSUE TYPING (HISTOTRAC) [address] Erythrocyte distribution width (RBC) [Ratio] 14.3 % Normal 11.5-15.0 [facility] Comment on above: Performed By: #### L [id number] #### [facility] TISSUE TYPING (HISTOTRAC) [address] ERYTHROCYTE MEAN CORPUSCULAR HEMOGLOBIN CONCENTRATION (G/DL) BY AUTOMATED 32.4 g/dL Normal 32.0-35.0 [facility] Comment on above: Performed By: #### L [id number] #### [facility] TISSUE TYPING (HISTOTRAC) [address] Hematocrit (Bld) [Volume fraction] 37.4 % Normal 36.0-48.0 [facility] Comment on above: Performed By: #### L [id number] #### [facility] TISSUE TYPING (HISTOTRAC) [address] Hemoglobin (Bld) [Mass/Vol] 12.1 g/dL Normal 12.0-15.0 [facility] Comment on above: Performed By: #### L [id number] #### [facility] TISSUE TYPING (HISTOTRAC) [address] Immature granulocytes (Bld) [#/Vol] 0.17 10*3/uL Normal 0.00-0.20 [facility] Comment on above: Performed By: #### L [id number] #### [facility] TISSUE TYPING (HISTOTRAC) [address] [place] [address] [place] Immature granulocytes/100 WBC (Bld) 1.8 % High 0.0-1.0 [facility] Comment on above: Performed By: #### L [id number] #### [facility] TISSUE TYPING (HISTOTRAC) [address] [place] [address] [place] Lymphocytes (Bld) [#/Vol] 1.30 10*3/uL Normal 1.20-4.00 [facility] Comment on above: Performed By: #### L [id number] #### [facility] TISSUE TYPING (HISTOTRAC) [address] Lymphocytes/100 WBC (Bld) 13.4 % Low 20.0-45.0 [facility] Comment on above: Performed By: #### L [id number] #### [facility] TISSUE TYPING (HISTOTRAC) [address] MCH (RBC) [Entitic mass] 28.8 pg Normal 27.0-33.0 [facility] Comment on above: Performed By: #### L [id number] #### [facility] TISSUE TYPING (HISTOTRAC) [address] MCV (RBC) [Entitic vol] 89.0 fL Normal 82.0-98.0 [facility] Comment on above: Performed By: #### L [id number] #### [facility] TISSUE TYPING (HISTOTRAC) [address] [place] [address] [place] Monocytes (Bld) [#/Vol] 0.56 10*3/uL Normal 0.10-1.00 [facility] Comment on above: Performed By: #### L [id number] #### [facility] TISSUE TYPING (HISTOTRAC) [address] [place] [address] [place] Monocytes/100 WBC (Bld) 5.8 % Normal 5.0-12.0 [facility] Comment on above: Performed By: #### L [id number] #### [facility] TISSUE TYPING (HISTOTRAC) [address] [place] [address] [place] Neutrophils (Bld) [#/Vol] 7.43 10*3/uL Normal 1.60-7.60 [facility] Comment on above: Performed By: #### L [id number] #### [facility] TISSUE TYPING (HISTOTRAC) [address] [place] [address] [place] Neutrophils/100 WBC (Bld) 76.5 % High 40.0-72.0 [facility] Comment on above: Performed By: #### L [id number] #### [facility] TISSUE TYPING (HISTOTRAC) [address] [place], [place] [address] NRBC (PER 100 WBCS) BY AUTOMATED COUNT 0.0 % Normal 0 [facility] Comment on above: Performed By: #### L [id number] #### [facility] TISSUE TYPING (HISTOTRAC) [address] [place] [address] [place] PLATELETS (10*3/UL) IN BLOOD AUTOMATED COUNT 331 10*3/uL Normal 150-400 [facility] Comment on above: Performed By: #### L [id number] #### [facility] TISSUE TYPING (HISTOTRAC) [address] [place], [place] [address] RBC (Bld) [#/Vol] 4.20 10*6/uL Normal 3.80-5.00 [facility] Comment on above: Performed By: #### L [id number] #### [facility] TISSUE TYPING (HISTOTRAC) [address] [place], [place] [address] WBC (Bld) [#/Vol] 9.70 10*3/uL Normal 4.00-10.60 [facility] Comment on above: Performed By: #### L [id number] #### [facility] TISSUE TYPING (HISTOTRAC) [address] [place], [place] [address] HEPATIC FUNCTION PANELon Albumin [Mass/Vol] 4.5 g/dL Normal 3.5-5.7 [facility] Comment on above: Performed By: #### L [id number] #### [facility] (BEAKER) [address] [place] [address] ALP [Catalytic activity/Vol] 87 U/L Normal 34-104 [facility] Comment on above: Performed By: #### L [id number] #### [facility] (BEAKER) [address] [place] [address] ALT [Catalytic activity/Vol] 29 U/L Normal 7-52 [facility] Comment on above: Performed By: #### L [id number] #### [facility] ([facility]) [address] [place] [address] AST [Catalytic activity/Vol] 24 U/L Normal 13-39 [facility] Comment on above: Performed By: #### L [id number] #### [facility] ([facility]) [address] [place] [address] Bilirubin [Mass/Vol] 0.4 mg/dL Normal 0.3-1.0 [facility] Comment on above: Performed By: #### L [id number] #### [facility] ([facility]) [address] [place] [address] Magnesium [Mass/Vol] 0.0 mg/dL Normal 0-0.2 [facility] Comment on above: Performed By: #### L [id number] #### [facility] ([facility]) [address] [place] [address] Protein [Mass/Vol] 7.4 g/dL Normal 6.0-8.3 [facility] Comment on above: Performed By: #### L [id number] #### [facility] ([facility]) [address] [place] [address] Labon 05-29-2023 Lab [id number] Antonio Puri i 1975 F Date Provider Department Center 05/29/2023 2245-[facility]PD LAB RESOURCE [facility] [place] [facility] C Family History Problem Relation Age of Onset Fibromyalgia Mother Heart disease Father Hypertension Sister Polycystic kidney disease Sister Hypertension Brother Polycystic kidney disease Brother Family Status - Relation Status Age at Mother Father Sister Brother Normal [facility] MAGNESIUMon 05-29-2023 Magnesium [Mass/Vol] 1.7 mg/dL Low 1.9-2.7 [facility] Comment on above: Performed By: #### L [id number] #### [facility] ([facility]) [address] [place] [address] PHOSPHORUSon 05-29-2023 Magnesium [Mass/Vol] 2.8 mg/dL Normal 2.5-5.0 [facility] Comment on above: Performed By: #### L [id number] #### [facility] [address] [place] [address] TACROLIMUS LEVELon Tacrolimus (Bld) [Mass/Vol] 5.6 ng/mL Normal 5.0-20.0 [facility] Comment on above: Result Comment: The [employer] Tacrolimus assay is a delayed one-step immunoassay for the quantitative determination of tacrolimus in human whole blood using the chemiluminescent microparticle immunoassay (CMIA) technology with flexible assay protocols, referred to as Chemiflex. Performed By: #### L [id number] #### [facility] ([facility]) [address] [place] [address] URIC ACIDon 05-29-2023 Magnesium [Mass/Vol] 5.0 mg/dL Normal 2.3-6.6 [facility] Comment on above: Performed By: #### L [id number] #### [facility] ([facility] [address] [place] [address] BASIC METABOLIC PANELon 04-06 Anion gap [Moles/Vol] 13 mmol/L Normal 7-20 [facility] Comment on above: Performed By: #### L [id number] #### [facility] ([facility]) [address] [place] [address] Calcium [Mass/Vol] 9.5 mg/dL Normal 8.6-10.3 [facility] Comment on above: Performed By: #### L [id number] #### [facility] ([facility]) [address] [place] [address] Chloride [Moles/Vol] 104 mmol/L Normal 98-107 [facility] Comment on above: Performed By: #### L [id number] #### [facility] ([facility]) [address] [place] [address] CO2 [Moles/Vol] 22 mmol/L Normal 21-31 [facility] Comment on above: Performed By: #### L [id number] #### [facility] ([facility]) [address] [place] [address] Creatinine [Mass/Vol] 1.25 mg/dL High 0.60-1.20 [facility] Comment on above: Performed By: #### L [id number] #### [facility] ([facility]) [address] [place] [address] GLOMERULAR FILTRATION RATE ML/MIN/1.73 SQ M.PREDICTED 53.5 mL/min/1.73m*2 Low >60.0 [facility] Comment on above: Result Comment: [facility]???s estimated glomerular filtration rate (eGFR) will no [...] group of individuals. Performed By: #### L [id number] #### [facility] ([facility]) [address] [place] [address] Glucose [Mass/Vol] 189 mg/dL High 70-100 [facility] Comment on above: Performed By: #### L [id number] #### [facility] ([facility]) [address] [place] [address] Potassium [Moles/Vol] 4.0 mmol/L Normal 3.5-5.1 [facility] Comment on above: Performed By: #### L [id number] #### [facility] ([facility]) [address] [place] [address] Sodium [Moles/Vol] 135 mmol/L Low 136-145 [facility] Comment on above: Performed By: #### L [id number] #### [facility] ([facility]) [address] [place] [address] Urea nitrogen [Mass/Vol] 19 mg/dL Normal 7-25 [facility] Comment on above: Performed By: #### L [id number] #### [facility] ([facility]) [address] [place] [address] UREA NITROGEN/CREATININE (MASS RATIO) IN SER/PLAS 15.2 Normal [facility] Comment on above: Performed By: #### L [id number] #### [facility] ([facility]) [address] [place] [address] CBC WITH AUTO DIFFERENTIALon 04-30-2023 Basophils (Bld) [#/Vol] 0.05 10*3/uL Normal 0.00-0.20 [facility] Comment on above: Performed By: #### L [id number] #### [facility] ([facility]) [address] [place] [address] Basophils/100 WBC (Bld) 0.7 % Normal 0.0-1.0 [facility] Comment on above: Performed By: #### L [id number] #### [facility] ([facility]) [address] [place] [address] Eosinophils (Bld) [#/Vol] 0.16 10*3/uL Normal 0.00-0.50 [facility] Comment on above: Performed By: #### L [id number] #### [facility] ([facility]) [address] [place] [address] Eosinophils/100 WBC (Bld) 2.1 % Normal 0.0-6.0 [facility] Comment on above: Performed By: #### L [id number] #### [facility] ([facility]) [address] [place] [address] Erythrocyte distribution width (RBC) [Ratio] 14.3 % Normal 11.5-15.0 [facility] Comment on above: Performed By: #### L [id number] #### [facility] [address] [place] [address] ERYTHROCYTE MEAN CORPUSCULAR HEMOGLOBIN CONCENTRATION (G/DL) BY AUTOMATED 33.1 g/dL Normal 32.0-35.0 [facility] Comment on above: Performed By: #### L [id number] #### [facility] (BEAKER) [address] [place] [address] Hematocrit (Bld) [Volume fraction] 35.9 % Low 36.0-48.0 [facility] Comment on above: Performed By: #### L [id number] #### [facility] (BEAKER) [address] [address] Hemoglobin (Bld) [Mass/Vol] 11.9 g/dL Low 12.0-15.0 [facility] Comment on above: Performed By: #### L [id number] #### [facility] (BEAKER) [address] [place] [address] Immature granulocytes (Bld) [#/Vol] 0.12 10*3/uL Normal 0.00-0.20 [facility] Comment on above: Performed By: #### L [id number] #### [facility] (BEAKER) [address] [place] [address] Immature granulocytes/100 WBC (Bld) 1.6 % High 0.0-1.0 [facility] Comment on above: Performed By: #### L [id number] #### [facility] (BEAKER) [address] [place] [address] Lymphocytes (Bld) [#/Vol] 1.30 10*3/uL Normal 1.20-4.00 [facility] Comment on above: Performed By: #### L [id number] #### [facility] (BEAKER) [address] [place] [address] Lymphocytes/100 WBC (Bld) 16.9 % Low 20.0-45.0 [facility] Comment on above: Performed By: #### L [id number] #### [facility] (BEAKER) [address] [place] [address] MCH (RBC) [Entitic mass] 29.6 pg Normal 27.0-33.0 [facility] Comment on above: Performed By: #### L [id number] #### [facility] ([facility]) [address] [place] [address] MCV (RBC) [Entitic vol] 89.3 fL Normal 82.0-98.0 [facility] Comment on above: Performed By: #### L [id number] #### [facility] ([facility]) [address] [place] [address] Monocytes (Bld) [#/Vol] 0.46 10*3/uL Normal 0.10-1.00 [facility] Comment on above: Performed By: #### L [id number] #### [facility] ([facility]) [address] [place] [address] Monocytes/100 WBC (Bld) 6.0 % Normal 5.0-12.0 [facility] Comment on above: Performed By: #### L [id number] #### [facility] ([facility]) [address] [place] [address] Neutrophils (Bld) [#/Vol] 5.58 10*3/uL Normal 1.60-7.60 [facility] Comment on above: Performed By: #### L [id number] #### [facility] ([facility]) [address] [place] [address] Neutrophils/100 WBC (Bld) 72.7 % High 40.0-72.0 [facility] Comment on above: Performed By: #### L [id number] #### [facility] ([facility]) [address] [place] [address] NRBC (PER 100 WBCS) BY AUTOMATED COUNT 0.0 % Normal 0 [facility] Comment on above: Performed By: #### L [id number] #### [facility] [address] [place] [address] PLATELETS (10*3/UL) IN BLOOD AUTOMATED COUNT 295 10*3/uL Normal 150-400 [facility] Comment on above: Performed By: #### L [id number] #### [facility] ([facility]) [address] [place] [address] RBC (Bld) [#/Vol] 4.02 10*6/uL Normal 3.80-5.00 [facility] Comment on above: Performed By: #### L [id number] #### [facility] ([facility]) [address] [place] [address] WBC (Bld) [#/Vol] 7.67 10*3/uL Normal 4.00-10.60 [facility] Comment on above: Performed By: #### L [id number] #### [facility] ([facility]) [address] [place] [address] HEPATIC FUNCTION PANELon Albumin [Mass/Vol] 4.6 g/dL Normal 3.5-5.7 [facility] Comment on above: Performed By: #### L [id number] #### [facility] TISSUE TYPING (HISTOTRAC) [address] [place] [address] [place] ALP [Catalytic activity/Vol] 82 U/L Normal 34-104 [facility] Comment on above: Performed By: #### L [id number] #### [facility] TISSUE TYPING (HISTOTRAC) [address] [place] [address] [place] ALT [Catalytic activity/Vol] 25 U/L Normal 7-52 [facility] Comment on above: Performed By: #### L [id number] #### [facility] TISSUE TYPING (HISTOTRAC) [address] [place] [address] [place] AST [Catalytic activity/Vol] 19 U/L Normal 13-39 [facility] Comment on above: Performed By: #### L [id number] #### [facility] TISSUE TYPING (HISTOTRAC) [address] [place] [address] [place] Bilirubin [Mass/Vol] 0.5 mg/dL Normal 0.3-1.0 [facility] Comment on above: Performed By: #### L [id number] #### [facility] TISSUE TYPING (HISTOTRAC) [address] [place] [address] [facility] Magnesium [Mass/Vol] 0.1 mg/dL Normal 0-0.2 [facility] Comment on above: Performed By: #### L [id number] #### [facility] TISSUE TYPING (HISTOTRAC) [address] [place] [address] [facility] Protein [Mass/Vol] 7.2 g/dL Normal 6.0-8.3 [facility] Comment on above: Performed By: #### L [id number] #### [facility] TISSUE TYPING (HISTOTRAC) [address] [place] [address] [facility] Labon 04-30-2023 Lab [id number] Antonio Puri i 1975 F Date Provider Department Center 04/30/2023 2245-[facility] OPD LAB RESOURCE [facility] Family History Problem Relation Age of Onset Fibromyalgia Mother Heart disease Father Hypertension Sister Polycystic kidney disease Sister Hypertension Brother Polycystic kidney disease Brother Family Status - Relation Status Age at Mother Father Sister Brother Normal [facility] MAGNESIUMon 04-30-2023 Magnesium [Mass/Vol] 1.6 mg/dL Low 1.9-2.7 [facility] Comment on above: Performed By: #### L [id number] #### [facility] (BEAKER) [address] [place] [address] PANEL REACTIVE ANTIBODYon HOLD SPECIMEN Hold for add-ons. Normal [facility] Comment on above: Result Comment: Auto resulted. Performed By: #### L [id number] #### [facility] (BEAKER) [address] [facility] [place] [address] PHOSPHORUSon 04-30-2023 Magnesium [Mass/Vol] 2.3 mg/dL Low 2.5-5.0 [facility] Comment on above: Performed By: #### L [id number] #### [facility] (BEAKER) [address] [place] [address] SINGLE ANTIGEN CLASS Ion AB SCREEN COMMENTS No Class I donor spe cific antibody identified Normal [facility] Comment on above: Performed By: #### L [id number] #### [facility] ([facility]) [address] [place] [address] CLASS I TESTED DATE Normal [facility] Comment on above: Performed By: #### L [id number] #### [facility] ([facility]) [address] [place] [address] SIGNED BY Signed by Nelson escamilla CHT([facility]) MT(ASCP), Dross [facility] Trans[facility] Immunology [facility] Comment on above: Result Comment: Clas s I Antigen Microbeads Performed By: #### L [id number] #### [facility] ([facility]) [address] [place] [address] Performed By: #### L [id number] #### [facility] ([facility]) [address] [facility] [place] [address] SINGLE ANTIGEN CLASS 1 TEST METHOD Class I Single Antigen Normal [facility] Comment on above: Performed By: #### L [id number] #### [facility] ([facility]) [address] [place] [address] SINGLE ANTIGEN CLASS IIon AB SCREEN COMMENTS No Class II donor specific antibody identified Normal [facility] Comment on above: Performed By: #### L [id number] #### [facility] ([facility]) [address] [facility] [place] [address] CLASS II TESTED DATE [facility] Comment on above: Performed By: #### L [id number] #### [facility] ([facility]) [address] [place] [address] SINGLE ANTIGEN CLASS 2 TEST METHOD Class II Single Antigen Normal [facility] Comment on above: Result Comment: Clas s II Antigen Microbeads Performed By: #### L [id number] #### [facility] ([facility]) [address] [place] [address] TACROLIMUS LEVELon 07-26-202 3 Tacrolimus (Bld) [Mass/Vol] 9.3 ng/mL Normal 5.0-20.0 [facility] Comment on above: Result Comment: The MARC[employer] Tacrolimus assay is a delayed one-step immunoassay for the quantitative determination of tacrolimus in human whole blood using the chemiluminescent microparticle immunoassay (CMIA) technology with flexible assay protocols, referred to as Chemiflex. Performed By: #### L [id number] #### [facility] ([employer]) [address] [place] [address] URIC ACIDon 04-30-2023 Magnesium [Mass/Vol] 4.9 mg/dL Normal 2.3-6.6 [facility] Comment on above: Performed By: #### L [id number] #### [facility] ([facility] [address] [place] [address] Follow-Upon 04-16-2023 Follow-Up [id number] Antonio Puri i 1975 F Date Provider Department Center 04/16/2023 SUJIT HINOJOSA TXP None Family History Problem Relation Age of Onset Fibromyalgia Mother Heart disease Father Hypertension Sister Polycystic kidney disease Sister Hypertension Brother Polycystic kidney disease Brother Family Status - Relation Status Age at Mother Father Sister Brother Level of Service:98943 MT OFFICE/OUTPATIENT ESTABLISHED MOD MDM 30-39 MIN Reason for Visit and Comments: Kidney Follow-up [] - Patient has concerns of feeling worse, increased urinating, issues with the prednisone, angry Normal [facility] BASIC METABOLIC PANELon -2 Anion gap [Moles/Vol] 14 mmol/L Normal 7-20 [facility] Comment on above: Performed By: #### L [id number] #### [facility] ([employer]) [address] [place] [address] Calcium [Mass/Vol] 9.4 mg/dL Normal 8.6-10.3 [facility] Comment on above: Performed By: #### L [id number] #### [facility] ([employer]) [address] [place] [address] Chloride [Moles/Vol] 104 mmol/L Normal 98-107 [facility] Comment on above: Performed By: #### L [id number] #### [facility] ([facility]) [address] [place] [address] CO2 [Moles/Vol] 24 mmol/L Normal 21-31 [facility] Comment on above: Performed By: #### L [id number] #### [facility] ([facility]) [address] [place] [address] Creatinine [Mass/Vol] 1.26 mg/dL High 0.60-1.20 [facility] Comment on above: Performed By: #### L [id number] #### [facility] ([facility]) [address] [place] [address] GLOMERULAR FILTRATION RATE ML/MIN/1.73 SQ M.PREDICTED 53.0 mL/min/1.73m*2 Low >60.0 [facility] Comment on above: Result Comment: [facility]???s estimated glomerular filtration rate (eGFR) will no [...] group of individuals. Performed By: #### L [id number] #### [facility] ([facility]) [address] [place] [address] Glucose [Mass/Vol] 155 mg/dL High 70-100 [facility] Comment on above: Performed By: #### L [id number] #### [facility] ([facility]) [address] [place] [address] Potassium [Moles/Vol] 3.6 mmol/L Normal 3.5-5.1 [facility] Comment on above: Performed By: #### L [id number] #### [facility] ([facility]) [address] [place] [address] Sodium [Moles/Vol] 138 mmol/L Normal 136-145 [facility] Comment on above: Performed By: #### L [id number] #### [facility] ([facility]) [address] [place] [address] Urea nitrogen [Mass/Vol] 19 mg/dL Normal 7-25 [facility] Comment on above: Performed By: #### L [id number] #### [facility] ([facility]) [address] [place] [address] UREA NITROGEN/CREATININE (MASS RATIO) IN SER/PLAS 15.1 Normal [facility] Comment on above: Performed By: #### L [id number] #### [facility] ([facility]) [address] [place] [address] CBC WITH AUTO DIFFERENTIALon 03-31-2023 Basophils (Bld) [#/Vol] 0.07 10*3/uL Normal 0.00-0.20 [facility] Comment on above: Performed By: #### L [id number] #### [facility] ([facility]) [address] [place] [address] Basophils/100 WBC (Bld) 0.9 % Normal 0.0-1.0 [facility] Comment on above: Performed By: #### L [id number] #### [facility] ([facility]) [address] [place] [address] Eosinophils (Bld) [#/Vol] 0.22 10*3/uL Normal 0.00-0.50 [facility] Comment on above: Performed By: #### L [id number] #### [facility] ([facility]) [address] [place] [address] Eosinophils/100 WBC (Bld) 2.9 % Normal 0.0-6.0 [facility] Comment on above: Performed By: #### L [id number] #### [facility] ([facility]) [address] [place] [address] Erythrocyte distribution width (RBC) [Ratio] 14.0 % Normal 11.5-15.0 [facility] Comment on above: Performed By: #### L [id number] #### [facility] ([facility] [address] [place] [address] ERYTHROCYTE MEAN CORPUSCULAR HEMOGLOBIN CONCENTRATION (G/DL) BY AUTOMATED 32.1 g/dL Normal 32.0-35.0 [facility] Comment on above: Performed By: #### L [id number] #### [facility] ([facility]) [address] [place] [address] Hematocrit (Bld) [Volume fraction] 36.5 % Normal 36.0-48.0 [facility] Comment on above: Performed By: #### L [id number] #### [facility] ([facility] [address] [place] [address] Hemoglobin (Bld) [Mass/Vol] 11.7 g/dL Low 12.0-15.0 [facility] Comment on above: Performed By: #### L [id number] #### [facility] ([facility]) [address] [place] [address] Immature granulocytes (Bld) [#/Vol] 0.19 10*3/uL Normal 0.00-0.20 [facility] Comment on above: Performed By: #### L [id number] #### [facility] ([facility]) [address] [place] [address] Immature granulocytes/100 WBC (Bld) 2.5 % High 0.0-1.0 [facility] Comment on above: Performed By: #### L [id number] #### [facility] ([facility]) [address] [place] [address] Lymphocytes (Bld) [#/Vol] 1.44 10*3/uL Normal 1.20-4.00 [facility] Comment on above: Performed By: #### L [id number] #### [facility] ([facility]) [address] [place] [address] Lymphocytes/100 WBC (Bld) 19.0 % Low 20.0-45.0 [facility] Comment on above: Performed By: #### L [id number] #### [facility] ([facility]) [address] [place] [address] MCH (RBC) [Entitic mass] 29.5 pg Normal 27.0-33.0 [facility] Comment on above: Performed By: #### L [id number] #### [facility] ([facility]) [address] [place] [address] MCV (RBC) [Entitic vol] 91.9 fL Normal 82.0-98.0 [facility] Comment on above: Performed By: #### L [id number] #### [facility] ([facility]) [address] [place] [address] Monocytes (Bld) [#/Vol] 0.54 10*3/uL Normal 0.10-1.00 [facility] Comment on above: Performed By: #### L [id number] #### [facility] ([facility]) [address] [place] [address] Monocytes/100 WBC (Bld) 7.1 % Normal 5.0-12.0 [facility] Comment on above: Performed By: #### L [id number] #### [facility] ([facility]) [address] [place] [address] Neutrophils (Bld) [#/Vol] 5.12 10*3/uL Normal 1.60-7.60 [facility] Comment on above: Performed By: #### L [id number] #### [facility] ([facility]) [address] [place] [address] Neutrophils/100 WBC (Bld) 67.6 % Normal 40.0-72.0 [facility] Comment on above: Performed By: #### L [id number] #### [facility] ([facility]) [address] [place] [address] NRBC (PER 100 WBCS) BY AUTOMATED COUNT 0.0 % Normal 0 [facility] Comment on above: Performed By: #### L [id number] #### [facility] ([facility]) [address] [place] [address] PLATELETS (10*3/UL) IN BLOOD AUTOMATED COUNT 274 10*3/uL Normal 150-400 [facility] Comment on above: Performed By: #### L [id number] #### [facility] ([facility]) [address] [place] [address] RBC (Bld) [#/Vol] 3.97 10*6/uL Normal 3.80-5.00 [facility] Comment on above: Performed By: #### L [id number] #### [facility] ([facility]) [address] [place] [address] WBC (Bld) [#/Vol] 7.58 10*3/uL Normal 4.00-10.60 [facility] Comment on above: Performed By: #### L [id number] #### [facility] ([facility]) [address] [place] [address] HEPATIC FUNCTION PANELon Albumin [Mass/Vol] 4.4 g/dL Normal 3.5-5.7 [facility] Comment on above: Performed By: #### L [id number] #### [facility] ([facility]) [address] [place] [address] ALP [Catalytic activity/Vol] 80 U/L Normal 34-104 [facility] Comment on above: Performed By: #### L [id number] #### [facility] ([facility]) [address] [place] [address] ALT [Catalytic activity/Vol] 19 U/L Normal 7-52 [facility] Comment on above: Performed By: #### L [id number] #### [facility] ([facility]) [address] [place] [address] AST [Catalytic activity/Vol] 17 U/L Normal 13-39 [facility] Comment on above: Performed By: #### L [id number] #### [facility] ([facility]) [address] [place] [address] Bilirubin [Mass/Vol] 0.4 mg/dL Normal 0.3-1.0 [facility] Comment on above: Performed By: #### L [id number] #### [facility] ([facility]) [address] [place] [address] Magnesium [Mass/Vol] 0.1 mg/dL Normal 0-0.2 [facility] Comment on above: Performed By: #### L [id number] #### [facility] ([facility]) [address] [place] [address] Protein [Mass/Vol] 7.4 g/dL Normal 6.0-8.3 [facility] Comment on above: Performed By: #### L [id number] #### [facility] ([facility]) [address] [place] [address] LIPID PANELon 03-31-2023 CHOL/HDL 4.9 mg/dL Normal [facility] Comment on above: Performed By: #### L [id number] #### [facility] ([facility]) [address] [place] [address] Cholesterol [Mass/Vol] 240 mg/dL High 120-200 [facility] Comment on above: Performed By: #### L [id number] #### [facility] ([facility]) [address] [place] [address] Magnesium [Mass/Vol] 274 mg/dL High 40-149 [facility] Comment on above: Result Comment: TRIG LYCERIDE REFERENCE RANGE: 20 YEARS AND OLDER CARDIOVASCULAR RISK LESS THAN 150 mg/dL LOW RISK 150 TO 199 mg/dL BORDERLINE RISK 200 mg/dL AND GREATER HIGH RISK Performed By: #### L [id number] #### [facility] ([facility]) [address] [place] [address] Magnesium [Mass/Vol] 136 mg/dL Normal 0-160 [facility] Comment on above: Performed By: #### L [id number] #### [facility] ([facility]) [address] [place] [address] Magnesium [Mass/Vol] 49 mg/dL Normal 23-92 [facility] Comment on above: Performed By: #### L [id number] #### [facility] ([facility]) [address] [place] [address] NON HDL CHOL. (LDL+VLDL) 191 Normal [facility] Comment on above: Performed By: #### L [id number] #### [facility] ([facility]) [address] [facility] [place] [address] TOTAL VLDL-C 55 mg/dL High 0-40 [facility] Comment on above: Performed By: #### L [id number] #### [facility] ([facility]) [address] [place] [address] Labon 03-31-2023 Lab [id number] Antonio Puri i 1975 F Date Provider Department [place] 03/31/2023 2245-[facility] LAB RESOURCE [facility] Family History Problem Relation Age of Onset Fibromyalgia Mother Heart disease Father Hypertension Sister Polycystic kidney disease Sister Hypertension Brother Polycystic kidney disease Brother Family Status - Relation Status Age at Mother Father Sister Brother Normal [facility] MAGNESIUMon 03-31-2023 Magnesium [Mass/Vol] 1.5 mg/dL Low 1.9-2.7 [facility] Comment on above: Performed By: #### L [id number] #### [facility] ([facility]) [address] [place] [address] PANEL REACTIVE ANTIBODYon HOLD SPECIMEN Hold for add-ons. Normal [facility] Comment on above: Result Comment: Auto resulted. Performed By: #### L [id number] #### [facility] ([facility]) [address] [facility] [place] [address] PHOSPHORUSon 03-31-2023 Magnesium [Mass/Vol] 2.6 mg/dL Normal 2.5-5.0 [facility] Comment on above: Performed By: #### L [id number] #### [facility] ([facility]) [address] [place] [address] SINGLE ANTIGEN CLASS Ion AB SCREEN COMMENTS No Class I donor spe cific antibody identified Normal [facility] Comment on above: Performed By: #### L [id number] #### [facility] ([facility]) [address] [place] [address] CLASS I TESTED DATE Normal [facility] Comment on above: Performed By: #### L [id number] #### [facility] ([facility]) [address] [place] [address] SIGNED BY Signed by Nelson escamilla [facility] MT(ASCP), Dross Sk[facility] Transplant Immunology [facility] Comment on above: Result Comment: Clas s I Antigen Microbeads Performed By: #### L [id number] #### [facility] ([facility]) [address] [place] [address] Performed By: #### L [id number] #### [facility] ([facility]) [address] [facility] [place] [address] SINGLE ANTIGEN CLASS 1 TEST METHOD Class I Single Antigen Normal [facility] Comment on above: Performed By: #### L [id number] #### [facility] ([facility]) [address] [place] [address] SINGLE ANTIGEN CLASS IIon AB SCREEN COMMENTS No Class II donor specific antibody identified Normal [facility] Comment on above: Performed By: #### L [id number] #### [facility] ([facility]) [address] [place] [address] CLASS II TESTED DATE [facility] Comment on above: Performed By: #### L [id number] #### [facility] ([facility]) [address] [place] [address] SINGLE ANTIGEN CLASS 2 TEST METHOD Class II Single Antigen Normal [facility] Comment on above: Result Comment: Clas s II Antigen Microbeads Performed By: #### L [id number] #### [facility] ([facility] [address] [place] [address] TACROLIMUS LEVELon Tacrolimus (Bld) [Mass/Vol] 6.2 ng/mL Normal 5.0-20.0 [facility] Comment on above: Result Comment: The [employer] Tacrolimus assay is a delayed one-step immunoassay for the quantitative determination of tacrolimus in human whole blood using the chemiluminescent microparticle immunoassay (CMIA) technology with flexible assay protocols, referred to as Chemiflex. Performed By: #### L [id number] #### [facility] ([facility]) [address] [place] [address] URIC ACIDon 03-31-2023 Magnesium [Mass/Vol] 5.3 mg/dL Normal 2.3-6.6 [facility] Comment on above: Performed By: #### L [id number] #### [facility] ([facility]) [address] [place] [address] 36on 02-28-2023 36 Refill is too soon, just sent over with 3 refills Normal [facility] Orders Onlyon 02-28-2023 Orders Only [id number] Antonio Puri i 1975 F Date Provider Department Center 02/28/2023 [id number]-ERTSGVRRJLANABEL WAGGONER TXCaridad None Family History Problem Relation Age of Onset Fibromyalgia Mother Heart disease Father Hypertension Sister Polycystic kidney disease Sister Hypertension Brother Polycystic kidney disease Brother Family Status - Relation Status Age at Mother Father Sister Brother Normal [facility] BASIC METABOLIC PANELon 02-04 Anion gap [Moles/Vol] 13 mmol/L Normal 7-20 [facility] Comment on above: Performed By: #### L [id number] #### [facility] ([facility]) [address] [place] [address] Calcium [Mass/Vol] 8.7 mg/dL Normal 8.6-10.3 [facility] Comment on above: Performed By: #### L [id number] #### [facility] ([facility] [address] [place] [address] Chloride [Moles/Vol] 104 mmol/L Normal 98-107 [facility] Comment on above: Performed By: #### L [id number] #### [facility] ([facility]) [address] [place] [address] CO2 [Moles/Vol] 23 mmol/L Normal 21-31 [facility] Comment on above: Performed By: #### L [id number] #### [facility] ([facility]) [address] [place] [address] Creatinine [Mass/Vol] 1.21 mg/dL High 0.60-1.20 [facility] Comment on above: Performed By: #### L [id number] #### [facility] ([facility]) [address] [place] [address] GLOMERULAR FILTRATION RATE ML/MIN/1.73 SQ M.PREDICTED 55.6 mL/min/1.73m*2 Low >60.0 [facility] Comment on above: Result Comment: [facility]???s estimated glomerular filtration rate (eGFR) will no [...] of individuals. Performed By: #### L [id number] #### [facility] ([facility]) [address] [place] [address] Glucose [Mass/Vol] 154 mg/dL High 70-100 [facility] Comment on above: Performed By: #### L [id number] #### [facility] ([facility]) [address] [place] [address] Potassium [Moles/Vol] 3.3 mmol/L Low 3.5-5.1 [facility] Comment on above: Performed By: #### L [id number] #### [facility] ([facility]) [address] [place] [address] Sodium [Moles/Vol] 137 mmol/L Normal 136-145 [facility] Comment on above: Performed By: #### L [id number] #### [facility] ([facility]) [address] [place] [address] Urea nitrogen [Mass/Vol] 19 mg/dL Normal 7-25 [facility] Comment on above: Performed By: #### L [id number] #### [facility] ([facility]) [address] [place] [address] UREA NITROGEN/CREATININE (MASS RATIO) IN SER/PLAS 15.7 Normal [facility] Comment on above: Performed By: #### L [id number] #### [facility] ([facility]) [address] [place] [address] BK VIRUS, PLASMA, QUANTITATI VEon 02-24-2023 BK QUANTITATION Not detected Normal Not Detected [facility] Comment on above: Result Comment: Meth od: BK virus was measured by quantitative polymerase chain reaction using a fluorescent hydrolysis probe targeting the polyomavirus BK OTM CONSULTANT-1 gene. The lower limit of quantitation of the assay is 500 copies of BK genome per milliliter of plasma or urine, and any detectable BK DNA below that level is reported as: Detected, <500 copies/ml. Serial BK virus measurement can be used to monitor disease activity. (Reference: Gordon chaneyl. J CLIN MICRO 2004; 42:2846-8682). This test was developed and its performance characteristics determined by the [facility]. It has not been approved by the [place] Food and Drug Administration. However, such approval is not required for clinical implementation, and test results have been shown to be clinically useful. This laboratory is CAP accredited and CLIA certified to perform high complexity testing. Performed By: #### L [id number] #### [facility] ([facility]) [address] [place] [address] BK QUANTITATION LOG Not detected Normal Not Detected [facility] Comment on above: Performed By: #### L [id number] #### [facility] ([facility]) [address] [place] [address] CBC WITH AUTO DIFFERENTIALon 02-24-2023 Basophils (Bld) [#/Vol] 0.05 10*3/uL Normal 0.00-0.20 [facility] Comment on above: Performed By: #### L [id number] #### [facility] ([facility]) [address] [place] [address] Basophils/100 WBC (Bld) 0.7 % Normal 0.0-1.0 [facility] Comment on above: Performed By: #### L [id number] #### [facility] ([facility]) [address] [facility] [place] [address] Eosinophils (Bld) [#/Vol] 0.17 10*3/uL Normal 0.00-0.50 [facility] Comment on above: Performed By: #### L [id number] #### [facility] ([facility]) [address] [place] [address] Eosinophils/100 WBC (Bld) 2.5 % Normal 0.0-6.0 [facility] Comment on above: Performed By: #### L [id number] #### [facility] ([facility]) [address] [place] [address] Erythrocyte distribution width (RBC) [Ratio] 15.4 % High 11.5-15.0 [facility] Comment on above: Performed By: #### L [id number] #### [facility] ([facility]) [address] [place] [address] ERYTHROCYTE MEAN CORPUSCULAR HEMOGLOBIN CONCENTRATION (G/DL) BY AUTOMATED 32.7 g/dL Normal 32.0-35.0 [facility] Comment on above: Performed By: #### L [id number] #### [facility] ([facility]) [address] [place] [address] Hematocrit (Bld) [Volume fraction] 30.3 % Low 36.0-48.0 [facility] Comment on above: Performed By: #### L [id number] #### [facility] ([facility]) [address] [place] [address] Hemoglobin (Bld) [Mass/Vol] 9.9 g/dL Low 12.0-15.0 [facility] Comment on above: Performed By: #### L [id number] #### [facility] ([facility]) [address] [place] [address] Immature granulocytes (Bld) [#/Vol] 0.13 10*3/uL Normal 0.00-0.20 [facility] Comment on above: Performed By: #### L [id number] #### [facility] ([facility]) [address] [place] [address] Immature granulocytes/100 WBC (Bld) 1.9 % High 0.0-1.0 [facility] Comment on above: Performed By: #### L [id number] #### [facility] ([facility]) [address] [place] [address] Lymphocytes (Bld) [#/Vol] 1.43 10*3/uL Normal 1.20-4.00 [facility] Comment on above: Performed By: #### L [id number] #### [facility] ([facility]) [address] [place] [address] Lymphocytes/100 WBC (Bld) 21.0 % Normal 20.0-45.0 [facility] Comment on above: Performed By: #### L [id number] #### [facility] [address] [place] [address] MCH (RBC) [Entitic mass] 30.7 pg Normal 27.0-33.0 [facility] Comment on above: Performed By: #### L [id number] #### [facility] [address] [place] [address] MCV (RBC) [Entitic vol] 93.8 fL Normal 82.0-98.0 [facility] Comment on above: Performed By: #### L [id number] #### [facility] ([facility] [address] [place] [address] Monocytes (Bld) [#/Vol] 0.51 10*3/uL Normal 0.10-1.00 [facility] Comment on above: Performed By: #### L [id number] #### [facility] ([facility]) [address] [place] [address] Monocytes/100 WBC (Bld) 7.5 % Normal 5.0-12.0 [facility] Comment on above: Performed By: #### L [id number] #### [facility] ([facility]) [address] [place] [address] Neutrophils (Bld) [#/Vol] 4.52 10*3/uL Normal 1.60-7.60 [facility] Comment on above: Performed By: #### L [id number] #### [facility] ([facility] [address] [place] [address] Neutrophils/100 WBC (Bld) 66.4 % Normal 40.0-72.0 [facility] Comment on above: Performed By: #### L [id number] #### [facility] ([facility]) [address] [place] [address] NRBC (PER 100 WBCS) BY AUTOMATED COUNT 0.3 % High 0 [facility] Comment on above: Performed By: #### L [id number] #### [facility] ([facility] [address] [place] [address] PLATELETS (10*3/UL) IN BLOOD AUTOMATED COUNT 218 10*3/uL Normal 150-400 [facility] Comment on above: Performed By: #### L [id number] #### [facility] ([facility]) [address] [place] [address] RBC (Bld) [#/Vol] 3.23 10*6/uL Low 3.80-5.00 [facility] Comment on above: Performed By: #### L [id number] #### [facility] ([facility]) [address] [place] [address] WBC (Bld) [#/Vol] 6.81 10*3/uL Normal 4.00-10.60 [facility] Comment on above: Performed By: #### L [id number] #### [facility] ([facility]) [address] [place] [address] HEMOGLOBIN A1Con 02-24-2023 Glucose [Mass/Vol] 108 mg/dL Normal [facility] Comment on above: Performed By: #### L [id number] #### [facility] ([facility]) [address] [place] [address] HbA1c (Bld) [Mass fraction] 5.4 % Normal 4.0-6.0 [facility] Comment on above: Performed By: #### L [id number] #### [facility] ([facility]) [address] [place] [address] HEPATIC FUNCTION PANELon Albumin [Mass/Vol] 4.3 g/dL Normal 3.5-5.7 [facility] Comment on above: Performed By: #### L [id number] #### [facility] ([facility]) [address] [place] [address] ALP [Catalytic activity/Vol] 79 U/L Normal 34-104 [facility] Comment on above: Performed By: #### L [id number] #### [facility] ([facility]) [address] [place] [address] ALT [Catalytic activity/Vol] 21 U/L Normal 7-52 [facility] Comment on above: Performed By: #### L [id number] #### [facility] ([facility]) [address] [place] [address] AST [Catalytic activity/Vol] 18 U/L Normal 13-39 [facility] Comment on above: Performed By: #### L [id number] #### [facility] ([facility]) [address] [place] [address] Bilirubin [Mass/Vol] 0.5 mg/dL Normal 0.3-1.0 [facility] Comment on above: Performed By: #### L [id number] #### [facility] ([facility] [address] [place] [address] Magnesium [Mass/Vol] 0.1 mg/dL Normal 0-0.2 [facility] Comment on above: Performed By: #### L [id number] #### [facility] ([facility]) [address] [place] [address] Protein [Mass/Vol] 6.8 g/dL Normal 6.0-8.3 [facility] Comment on above: Performed By: #### L [id number] #### [facility] ([facility]) [address] [place] [address] LIPID PANELon 02-24-2023 CHOL/HDL 4.6 mg/dL Normal [facility] Comment on above: Performed By: #### L [id number] #### [facility] ([facility]) [address] [place] [address] Cholesterol [Mass/Vol] 211 mg/dL High 120-200 [facility] Comment on above: Performed By: #### L [id number] #### [facility] ([facility]) [address] [place] [address] Magnesium [Mass/Vol] 263 mg/dL High 40-149 [facility] Comment on above: Result Comment: TRIG LYCERIDE REFERENCE RANGE: 20 YEARS AND OLDER CARDIOVASCULAR RISK LESS THAN 150 mg/dL LOW RISK 150 TO 199 mg/dL BORDERLINE RISK 200 mg/dL AND GREATER HIGH RISK Performed By: #### L [id number] #### [facility] ([facility]) [address] [place] [address] Magnesium [Mass/Vol] 112 mg/dL Normal 0-160 [facility] Comment on above: Performed By: #### L [id number] #### [facility] ([facility]) [address] [place] [address] Magnesium [Mass/Vol] 46 mg/dL Normal 23-92 [facility] Comment on above: Performed By: #### L [id number] #### [facility] ([facility]) [address] [place] [address] NON HDL CHOL. (LDL+VLDL) 165 Normal [facility] Comment on above: Performed By: #### L [id number] #### [facility] ([facility]) [address] [place] [address] TOTAL VLDL-C 53 mg/dL High 0-40 [facility] Comment on above: Performed By: #### L [id number] #### [facility] ([facility]) [address] [facility] [place] [address] Labon 02-24-2023 Lab [id number] Antonio Puri i 1975 F Date Provider Department Center 02/24/2023 2245-[facility] RESOURCE [facility] [place] Medical C Family History Problem Relation Age of Onset Fibromyalgia Mother Heart disease Father Hypertension Sister Polycystic kidney disease Sister Hypertension Brother Polycystic kidney disease Brother Family Status - Relation Status Age at Mother Father Sister Brother Normal [facility] MAGNESIUMon 02-24-2023 Magnesium [Mass/Vol] 1.7 mg/dL Low 1.9-2.7 [facility] Comment on above: Performed By: #### L [id number] #### [facility] ([facility]) [address] [place] [address] PANEL REACTIVE ANTIBODYon HOLD SPECIMEN Hold for add-ons. Normal [facility] Comment on above: Result Comment: Auto resulted. Performed By: #### L [id number] #### [facility] ([facility]) [address] [place] [address] PHOSPHORUSon 02-24-2023 Magnesium [Mass/Vol] 2.3 mg/dL Low 2.5-5.0 [facility] Comment on above: Performed By: #### L [id number] #### [facility] ([facility]) [address] [place] [address] SINGLE ANTIGEN CLASS Ion AB SCREEN COMMENTS No Class I donor spe cific antibody identified Normal [facility] Comment on above: Performed By: #### L [id number] #### [facility] [address] [place] [address] CLASS I TESTED DATE Normal [facility] Comment on above: Performed By: #### L [id number] #### [facility] ([facility]) [address] [facility] [place] [address] SINGLE ANTIGEN CLASS 1 TEST METHOD Class I Single Antigen Normal [facility] Comment on above: Performed By: #### L [id number] #### [facility] ([facility]) [address] [place] [address] SINGLE ANTIGEN CLASS IIon AB SCREEN COMMENTS No Class II donor specific antibody identified [facility] Comment on above: Performed By: #### L [id number] #### [facility] ([facility]) [address] [place] [address] CLASS II TESTED DATE [facility] Comment on above: Performed By: #### L [id number] #### [facility] ([facility]) [address] [place] [address] SIGNED BY Signed by Nelson escamilla CHT([facility]) MT[facility] D[facility] Immun[facility] Comment on above: Performed By: #### L [id number] #### [facility] ([facility]) [address] [place] [address] Result Comment: Clas s I Antigen Microbeads Performed By: #### L [id number] #### [facility] ([facility]) [address] [place] [address] SINGLE ANTIGEN CLASS 2 TEST METHOD Class II Single Antigen Normal [facility] Comment on above: Result Comment: Clas s II Antigen Microbeads Performed By: #### L [id number] #### [facility] [address] [facility] [place] [address] TACROLIMUS LEVELon Tacrolimus (Bld) [Mass/Vol] 5.9 ng/mL Normal 5.0-20.0 [facility] Comment on above: Result Comment: The M[employer] Tacrolimus assay is a delayed one-step immunoassay for the quantitative determination of tacrolimus in human whole blood using the chemiluminescent microparticle immunoassay (CMIA) technology with flexible assay protocols, referred to as Chemiflex. Performed By: #### L [id number] #### [facility] ([facility]) [address] [place] [address] URIC ACIDon 02-24-2023 Magnesium [Mass/Vol] 4.6 mg/dL Normal 2.3-6.6 [facility] Comment on above: Performed By: #### L [id number] #### [facility] ([facility]) [address] [place] [address] Follow-Upon 02-03-2023 Follow-Up [id number] Antonio Puri i 1975 F Date Provider Department Center 02/03/2023 MARYBETH TOVARP None Family History Problem Relation Age of Onset Fibromyalgia Mother Heart disease Father Hypertension Sister Polycystic kidney disease Sister Hypertension Brother Polycystic kidney disease Brother Family Status - Relation Status Age at Mother Father Sister Brother Level of Service:92519 MT OFFICE/OUTPATIENT ESTABLISHED MOD MDM 30-39 MIN Reason for Visit and Comments: Kidney Follow-up [] - Patient would like to discuss Lipitor and body aches. She states she can not get out of bed. Patient states she has been short of breath. Normal [facility] BASIC METABOLIC PANELon 04-2 Anion gap [Moles/Vol] 13 mmol/L Normal 7-20 [facility] Comment on above: Performed By: #### L [id number] #### [facility] ([facility]) [address] [place] [address] Calcium [Mass/Vol] 9.2 mg/dL Normal 8.6-10.3 [facility] Comment on above: Performed By: #### L [id number] #### [facility] ([facility]) [address] [place] [address] Chloride [Moles/Vol] 104 mmol/L Normal 98-107 [facility] Comment on above: Performed By: #### L [id number] #### [facility] ([facility]) [address] [place] [address] CO2 [Moles/Vol] 24 mmol/L Normal 21-31 [facility] Comment on above: Performed By: #### L [id number] #### [facility] ([facility]) [address] [place] [address] Creatinine [Mass/Vol] 1.39 mg/dL High 0.60-1.20 [facility] Comment on above: Performed By: #### L [id number] #### [facility] ([facility]) [address] [place] [address] GLOMERULAR FILTRATION RATE ML/MIN/1.73 SQ M.PREDICTED 47.1 mL/min/1.73m*2 Low >60.0 [facility] Comment on above: Result Comment: [facility]???s estimated glomerular filtration rate (eGFR) will no [...] group of individuals. Performed By: #### L [id number] #### [facility] ([facility]) [address] [place] [address] Glucose [Mass/Vol] 174 mg/dL High 70-100 [facility] Comment on above: Performed By: #### L [id number] #### [facility] ([facility]) [address] [place] [address] Potassium [Moles/Vol] 3.8 mmol/L Normal 3.5-5.1 [facility] Comment on above: Performed By: #### L [id number] #### [facility] ([facility]) [address] [place] [address] Sodium [Moles/Vol] 137 mmol/L Normal 136-145 [facility] Comment on above: Performed By: #### L [id number] #### [facility] ([facility]) [address] [place] [address] Urea nitrogen [Mass/Vol] 20 mg/dL Normal 7-25 [facility] Comment on above: Performed By: #### L [id number] #### [facility] ([facility]) [address] [place] [address] UREA NITROGEN/CREATININE (MASS RATIO) IN SER/PLAS 14.4 Normal [facility] Comment on above: Performed By: #### L [id number] #### [facility] ([facility]) [address] [place] [address] CBC WITH AUTO DIFFERENTIALon 02-01-2023 Basophils (Bld) [#/Vol] 0.07 10*3/uL Normal 0.00-0.20 [facility] Comment on above: Performed By: #### L [id number] #### [facility] ([facility]) [address] [place] [address] Basophils/100 WBC (Bld) 0.8 % Normal 0.0-1.0 [facility] Comment on above: Performed By: #### L [id number] #### [facility] ([facility]) [address] [place] [address] Eosinophils (Bld) [#/Vol] 0.36 10*3/uL Normal 0.00-0.50 [facility] Comment on above: Performed By: #### L [id number] #### [facility] ([facility]) [address] [place] [address] Eosinophils/100 WBC (Bld) 4.2 % Normal 0.0-6.0 [facility] Comment on above: Performed By: #### L [id number] #### [facility] ([facility]) [address] [place] [address] Erythrocyte distribution width (RBC) [Ratio] 14.7 % Normal 11.5-15.0 [facility] Comment on above: Performed By: #### L [id number] #### [facility] [address] [place] [address] ERYTHROCYTE MEAN CORPUSCULAR HEMOGLOBIN CONCENTRATION (G/DL) BY AUTOMATED 33.0 g/dL Normal 32.0-35.0 [facility] Comment on above: Performed By: #### L [id number] #### [facility] [address] [place] [address] Hematocrit (Bld) [Volume fraction] 30.9 % Low 36.0-48.0 [facility] Comment on above: Performed By: #### L [id number] #### [facility] ([facility]) [address] [place] [address] Hemoglobin (Bld) [Mass/Vol] 10.2 g/dL Low 12.0-15.0 [facility] Comment on above: Performed By: #### L [id number] #### [facility] ([facility]) [address] [place] [address] Immature granulocytes (Bld) [#/Vol] 0.14 10*3/uL Normal 0.00-0.20 [facility] Comment on above: Performed By: #### L [id number] #### [facility] ([facility]) [address] [place] [address] Immature granulocytes/100 WBC (Bld) 1.6 % High 0.0-1.0 [facility] Comment on above: Performed By: #### L [id number] #### [facility] ([facility]) [address] [place] [address] Lymphocytes (Bld) [#/Vol] 0.58 10*3/uL Low 1.20-4.00 [facility] Comment on above: Performed By: #### L [id number] #### [facility] ([facility]) [address] [place] [address] Lymphocytes/100 WBC (Bld) 6.7 % Low 20.0-45.0 [facility] Comment on above: Performed By: #### L [id number] #### [facility] [address] [place] [address] MCH (RBC) [Entitic mass] 31.1 pg Normal 27.0-33.0 [facility] Comment on above: Performed By: #### L [id number] #### [facility] ([facility]) [address] [place] [address] MCV (RBC) [Entitic vol] 94.2 fL Normal 82.0-98.0 [facility] Comment on above: Performed By: #### L [id number] #### [facility] ([facility]) [address] [place] [address] Monocytes (Bld) [#/Vol] 0.59 10*3/uL Normal 0.10-1.00 [facility] Comment on above: Performed By: #### L [id number] #### [facility] ([facility]) [address] [place] [address] Monocytes/100 WBC (Bld) 6.9 % Normal 5.0-12.0 [facility] Comment on above: Performed By: #### L [id number] #### [facility] ([facility]) [address] [place] [address] Neutrophils (Bld) [#/Vol] 6.87 10*3/uL Normal 1.60-7.60 [facility] Comment on above: Performed By: #### L [id number] #### [facility] ([facility] [address] [place] [address] Neutrophils/100 WBC (Bld) 79.8 % High 40.0-72.0 [facility] Comment on above: Performed By: #### L [id number] #### [facility] [address] [place] [address] NRBC (PER 100 WBCS) BY AUTOMATED COUNT 0.0 % Normal 0 [facility] Comment on above: Performed By: #### L [id number] #### [facility] ([facility] [address] [place] [address] PLATELETS (10*3/UL) IN BLOOD AUTOMATED COUNT 233 10*3/uL Normal 150-400 [facility] Comment on above: Performed By: #### L [id number] #### [facility] ([facility]) [address] [place] [address] RBC (Bld) [#/Vol] 3.28 10*6/uL Low 3.80-5.00 [facility] Comment on above: Performed By: #### L [id number] #### [facility] ([facility]) [address] [place] [address] WBC (Bld) [#/Vol] 8.61 10*3/uL Normal 4.00-10.60 [facility] Comment on above: Performed By: #### L [id number] #### [facility] ([facility]) [address] [place] [address] CKon 02-01-2023 CREATINE KINASE (U/L) IN SER/PLAS 26.0 U/L Low 30.0-223.0 [facility] Comment on above: Performed By: #### L [id number] #### [facility] ([facility]) [address] [place] [address] HEPATIC FUNCTION PANELon Albumin [Mass/Vol] 4.2 g/dL Normal 3.5-5.7 [facility] Comment on above: Performed By: #### L [id number] #### [facility] ([facility]) [address] [place] [address] ALP [Catalytic activity/Vol] 85 U/L Normal 34-104 [facility] Comment on above: Performed By: #### L [id number] #### [facility] ([facility]) [address] [place] [address] ALT [Catalytic activity/Vol] 26 U/L Normal 7-52 [facility] Comment on above: Performed By: #### L [id number] #### [facility] [address] [place] [address] AST [Catalytic activity/Vol] 18 U/L Normal 13-39 [facility] Comment on above: Performed By: #### L [id number] #### [facility] [address] [place] [address] Bilirubin [Mass/Vol] 0.6 mg/dL Normal 0.3-1.0 [facility] Comment on above: Performed By: #### L [id number] #### [facility] ([facility]) [address] [place] [address] Magnesium [Mass/Vol] 0.1 mg/dL Normal 0-0.2 [facility] Comment on above: Performed By: #### L [id number] #### [facility] ([facility]) [address] [place] [address] Protein [Mass/Vol] 6.8 g/dL Normal 6.0-8.3 [facility] Comment on above: Performed By: #### L [id number] #### [facility] ([facility]) [address] [place] [address] LIPID PANELon 02-01-2023 CHOL/HDL 4.0 mg/dL Normal [facility] Comment on above: Performed By: #### L [id number] #### [facility] ([facility]) [address] [place] [address] Cholesterol [Mass/Vol] 194 mg/dL Normal 120-200 [facility] Comment on above: Performed By: #### L [id number] #### [facility] ([facility]) [address] [place] [address] Magnesium [Mass/Vol] 258 mg/dL High 40-149 [facility] Comment on above: Result Comment: TRIG LYCERIDE REFERENCE RANGE: 20 YEARS AND OLDER CARDIOVASCULAR RISK LESS THAN 150 mg/dL LOW RISK 150 TO 199 mg/dL BORDERLINE RISK 200 mg/dL AND GREATER HIGH RISK Performed By: #### L [id number] #### [facility] ([facility] [address] [place] [address] Magnesium [Mass/Vol] 93 mg/dL Normal 0-160 [facility] Comment on above: Performed By: #### L [id number] #### [facility] ([facility]) [address] [place] [address] Magnesium [Mass/Vol] 49 mg/dL Normal 23-92 [facility] Comment on above: Performed By: #### L [id number] #### [facility] ([facility]) [address] [place] [address] NON HDL CHOL. (LDL+VLDL) 145 Normal [facility] Comment on above: Performed By: #### L [id number] #### [facility] ([facility]) [address] [place] [address] TOTAL VLDL-C 52 mg/dL High 0-40 [facility] Comment on above: Performed By: #### L [id number] #### [facility] ([facility]) [address] [place] [address] Labon 02-01-2023 Lab [id number] Antonio Puri i 1975 F Date Provider Department Center 02/01/2023 [facility] OPD LAB RESOURCE [facility] OPD [facility] Family History Problem Relation Age of Onset Fibromyalgia Mother Heart disease Father Hypertension Sister Polycystic kidney disease Sister Hypertension Brother Polycystic kidney disease Brother Family Status - Relation Status Age at Mother Father Sister Brother Normal [facility] MAGNESIUMon 02-01-2023 Magnesium [Mass/Vol] 1.6 mg/dL Low 1.9-2.7 [facility] Comment on above: Performed By: #### L [id number] #### [facility] ([facility]) [address] [place] [address] MYOGLOBIN, SERUMon 3 MYOGLOBIN (NG/ML) IN SER/PLAS 30 ng/mL Normal 0-90 [facility] Comment on above: Result Comment: A DO UBLING OF VALUES FROM SERIAL BLOOD COLLECTIONS (1 - 2 HOURS APART) IS MORE INDICATIVE OF A M.I. THAN THE ABSOLUTE VALUE. Performed By: #### L [id number] #### [facility] ([facility]) [address] [facility] [place] [address] PHOSPHORUSon 02-01-2023 Magnesium [Mass/Vol] 3.0 mg/dL Normal 2.5-5.0 [facility] Comment on above: Performed By: #### L [id number] #### [facility] ([facility]) [address] [place] [address] TACROLIMUS LEVELon 3 Tacrolimus (Bld) [Mass/Vol] 7.0 ng/mL Normal 5.0-20.0 [facility] Comment on above: Result Comment: The MARC[employer] Tacrolimus assay is a delayed one-step immunoassay for the quantitative determination of tacrolimus in human whole blood using the chemiluminescent microparticle immunoassay (CMIA) technology with flexible assay protocols, referred to as Chemiflex. Performed By: #### L [id number] #### [facility] ([facility]) [address] [place] [address] URIC ACIDon 02-01-2023 Magnesium [Mass/Vol] 3.9 mg/dL Normal 2.3-6.6 [facility] Comment on above: Performed By: #### L [id number] #### [facility] ([facility]) [address] [place] [address] Labon 01-17-2023 Lab [id number] Antonio Puri i 1975 F Date Provider Department Center 01/17/2023 [facility] OPD LAB RESOURCE [facility] OPD [facility] Family History Problem Relation Age of Onset Fibromyalgia Mother Heart disease Father Hypertension Sister Polycystic kidney disease Sister Hypertension Brother Polycystic kidney disease Brother Family Status - Relation Status Age at Mother Father Sister Brother Normal [facility] TACROLIMUS LEVELon 3 Tacrolimus (Bld) [Mass/Vol] 7.8 ng/mL Normal 5.0-20.0 [facility] Comment on above: Result Comment: The M[employer] Tacrolimus assay is a delayed one-step immunoassay for the quantitative determination of tacrolimus in human whole blood using the chemiluminescent microparticle immunoassay (CMIA) technology with flexible assay protocols, referred to as Chemiflex. Performed By: #### L [id number] #### [facility] ([facility]) [address] [place] [address] Labon 01-09-2023 Lab [id number] Antonio Puri i 1975 Provider Department Center [facility] RESOURCE [facility] Family History Problem Relation Age of Onset Fibromyalgia Mother Heart disease Father Hypertension Sister Polycystic kidney disease Sister Hypertension Brother Polycystic kidney disease Brother Family Status - Relation Status Age at Mother Father Sister Brother Normal [facility] TACROLIMUS LEVELon 3 Tacrolimus (Bld) [Mass/Vol] 4.4 ng/mL Low 5.0-20.0 [facility] Comment on above: Result Comment: The MARC[employer] Tacrolimus assay is a delayed one-step immunoassay for the quantitative determination of tacrolimus in human whole blood using the chemiluminescent microparticle immunoassay (CMIA) technology with flexible assay protocols, referred to as Chemiflex. Performed By: #### L [id number] #### [facility] ([facility]) [address] [place] [address] Labon 01-01-2023 Lab [id number] Khushi,Brand i 1975 Provider Department Center 01/01/[address] [place] [address] [facility] Family History Problem Relation Age of Onset Fibromyalgia Mother Heart disease Father Hypertension Sister Polycystic kidney disease Sister Hypertension Brother Polycystic kidney disease Brother Family Status - Relation Status Age at Mother Father Sister Brother Normal [facility] TACROLIMUS LEVELon 3 Tacrolimus (Bld) [Mass/Vol] 10.0 ng/mL Normal 5.0-20.0 [facility] Comment on above: Result Comment: The M[employer] Tacrolimus assay is a delayed one-step immunoassay for the quantitative determination of tacrolimus in human whole blood using the chemiluminescent microparticle immunoassay (CMIA) technology with flexible assay protocols, referred to as Chemiflex. Performed By: #### L [id number] #### [facility] ([facility]) [address] [place] [address] BASIC METABOLIC PANELon 12-05 Anion gap [Moles/Vol] 13 mmol/L Normal 7-20 [facility] Comment on above: Performed By: #### L [id number] #### [facility] ([facility]) [address] [place] [address] Calcium [Mass/Vol] 9.4 mg/dL Normal 8.6-10.3 [facility] Comment on above: Performed By: #### L [id number] #### [facility] ([facility]) [address] [place] [address] Chloride [Moles/Vol] 103 mmol/L Normal 98-107 [facility] Comment on above: Performed By: #### L [id number] #### [facility] ([facility]) [address] [place] [address] CO2 [Moles/Vol] 25 mmol/L Normal 21-31 [facility] Comment on above: Performed By: #### L [id number] #### [facility] ([facility]) [address] [place] [address] Creatinine [Mass/Vol] 1.33 mg/dL High 0.60-1.20 [facility] Comment on above: Performed By: #### L [id number] #### [facility] ([facility]) [address] [place] [address] GLOMERULAR FILTRATION RATE ML/MIN/1.73 SQ M.PREDICTED 49.7 mL/min/1.73m*2 Low >60.0 [facility] Comment on above: Result Comment: [facility]???s estimated glomerular filtration rate (eGFR) will no [...] of individuals. Performed By: #### L [id number] #### [facility] ([facility] [address] [place] [address] Glucose [Mass/Vol] 154 mg/dL High 70-100 [facility] Comment on above: Performed By: #### L [id number] #### [facility] ([facility] [address] [place] [address] Potassium [Moles/Vol] 3.5 mmol/L Normal 3.5-5.1 [facility] Comment on above: Performed By: #### L [id number] #### [facility] ([facility]) [address] [place] [address] Sodium [Moles/Vol] 137 mmol/L Normal 136-145 [facility] Comment on above: Performed By: #### L [id number] #### [facility] ([facility]) [address] [place] [address] Urea nitrogen [Mass/Vol] 23 mg/dL Normal 7-25 [facility] Comment on above: Performed By: #### L [id number] #### [facility] ([facility]) [address] [place] [address] UREA NITROGEN/CREATININE (MASS RATIO) IN SER/PLAS 17.3 Normal [facility] Comment on above: Performed By: #### L [id number] #### [facility] ([facility]) [address] [place] [address] CBC WITH AUTO DIFFERENTIALon 12-25-2022 Erythrocyte distribution width (RBC) [Ratio] 13.3 % Normal 11.5-15.0 [facility] Comment on above: Performed By: #### L [id number] #### [facility] ([facility]) [address] [place] [address] ERYTHROCYTE MEAN CORPUSCULAR HEMOGLOBIN CONCENTRATION (G/DL) BY AUTOMATED 33.8 g/dL Normal 32.0-35.0 [facility] Comment on above: Performed By: #### L [id number] #### [facility] ([facility] [address] [place] [address] Hematocrit (Bld) [Volume fraction] 36.4 % Normal 36.0-48.0 [facility] Comment on above: Performed By: #### L [id number] #### [facility] ([facility]) [address] [place] [address] Hemoglobin (Bld) [Mass/Vol] 12.3 g/dL Normal 12.0-15.0 [facility] Comment on above: Performed By: #### L [id number] #### [facility] ([facility]) [address] [place] [address] MCH (RBC) [Entitic mass] 31.9 pg Normal 27.0-33.0 [facility] Comment on above: Performed By: #### L [id number] #### [facility] ([facility]) [address] [place] [address] MCV (RBC) [Entitic vol] 94.5 fL Normal 82.0-98.0 [facility] Comment on above: Performed By: #### L [id number] #### [facility] ([facility]) [address] [place] [address] NRBC (PER 100 WBCS) BY AUTOMATED COUNT 0.0 % Normal 0.0-0.0 [facility] Comment on above: Performed By: #### L [id number] #### [facility] ([facility]) [address] [place] [address] PLATELETS (10*3/UL) IN BLOOD AUTOMATED COUNT 274 10*3/uL Normal 150-400 [facility] Comment on above: Performed By: #### L [id number] #### [facility] ([facility]) [address] [place] [address] RBC (Bld) [#/Vol] 3.85 10*6/uL Normal 3.80-5.00 [facility] Comment on above: Performed By: #### L [id number] #### [facility] ([facility] [address] [place] [address] WBC (Bld) [#/Vol] 4.30 10*3/uL Normal 4.00-10.60 [facility] Comment on above: Performed By: #### L [id number] #### [facility] ([facility]) [address] [place] [address] CKon 12-25-2022 CREATINE KINASE (U/L) IN SER/PLAS 32.0 U/L Normal 30.0-223.0 [facility] Comment on above: Performed By: #### L [id number] #### [facility] ([facility]) [address] [place] [address] Follow-Upon 12-25-2022 Follow-Up [id number] Antonio Puri i 1975 F Date Provider Department Center 12/25/2022 AGUILA HUTCHINS None Family History Problem Relation Age of Onset Fibromyalgia Mother Heart disease Father Hypertension Sister Polycystic kidney disease Sister Hypertension Brother Polycystic kidney disease Brother Family Status - Relation Status Age at Mother Father Sister Brother Level of Service:16527 MT OFFICE/OUTPATIENT ESTABLISHED MOD MDM 30-39 MIN Reason for Visit and Comments: Kidney Transplant [[id number]] - No major concerns today Normal [facility] HEPATIC FUNCTION PANELon Albumin [Mass/Vol] 4.6 g/dL Normal 3.5-5.7 [facility] Comment on above: Performed By: #### L [id number] #### [facility] ([facility]) [address] [place] [address] ALP [Catalytic activity/Vol] 63 U/L Normal 34-104 [facility] Comment on above: Performed By: #### L [id number] #### [facility] ([facility]) [address] [place] [address] ALT [Catalytic activity/Vol] 25 U/L Normal 7-52 [facility] Comment on above: Performed By: #### L [id number] #### [facility] ([facility]) [address] [place] [address] AST [Catalytic activity/Vol] 19 U/L Normal 13-39 [facility] Comment on above: Performed By: #### L [id number] #### [facility] ([facility] [address] [place] [address] Bilirubin [Mass/Vol] 0.4 mg/dL Normal 0.3-1.0 [facility] Comment on above: Performed By: #### L [id number] #### [facility] ([facility]) [address] [place] [address] Magnesium [Mass/Vol] 0.1 mg/dL Normal 0-0.2 [facility] Comment on above: Performed By: #### L [id number] #### [facility] ([facility]) [address] [place] [address] Protein [Mass/Vol] 7.2 g/dL Normal 6.0-8.3 [facility] Comment on above: Performed By: #### L [id number] #### [facility] ([facility]) [address] [place] [address] Labon 12-25-2022 Lab [id number] Antonio Puri i 1975 F Date Provider Department Center 12/25/2022 [facility]PD LAB RESOURCE [facility] OPD [facility] Family History Problem Relation Age of Onset Fibromyalgia Mother Heart disease Father Hypertension Sister Polycystic kidney disease Sister Hypertension Brother Polycystic kidney disease Brother Family Status - Relation Status Age at Mother Father Sister Brother Normal [facility] MAGNESIUMon 12-25-2022 Magnesium [Mass/Vol] 1.7 mg/dL Low 1.9-2.7 [facility] Comment on above: Performed By: #### L [id number] #### [facility] ([facility] [address] [place] [address] MANUAL DIFFERENTIALon 2022 BASOPHILS (10*3/UL) IN BLOOD BY CALCULATION 0.04 10*3/uL Normal 0.00-0.20 [facility] Comment on above: Performed By: #### L [id number] #### [facility] ([facility]) [address] [place] [address] BASOPHILS/100 LEUKOCYTES IN BLOOD BY AUTOMATED COUNT 1.0 % Normal 0.0-1.0 [facility] Comment on above: Result Comment: Libby ected result: Previously reported as 0.9 % (reference range: 0.0-1.0 %) on 12/25/2022 at 0831 EDT. Performed By: #### L [id number] #### [facility] ([facility]) [address] [place] [address] EOSINOPHILS (10*3/UL) IN BLOOD BY CALCULATION 0.09 10*3/uL Normal 0.00-0.50 [facility] Comment on above: Result Comment: Libby ected result: Previously reported as 0.15 10*3/uL (reference range: 0.00-0.50 10*3/uL) on 12/25/2022 at 0831 EDT. Performed By: #### L [id number] #### [facility] ([facility]) [address] [place] [address] EOSINOPHILS/100 LEUKOCYTES IN BLOOD BY AUTOMATED COUNT 2.0 % Normal 0.0-6.0 [facility] Comment on above: Result Comment: Libby ected result: Previously reported as 3.5 % (reference range: 0.0-6.0 %) on 12/25/2022 at 0831 EDT. Performed By: #### L [id number] #### [facility] ([facility]) [address] [place] [address] LYMPHOCYTES (10*3/UL) IN BLOOD BY CALCULATION 0.65 10*3/uL Low 1.20-4.00 [facility] Comment on above: Result Comment: Libby ected result: Previously reported as 0.69 10*3/uL (reference range: 1.20-4.00 10*3/uL) on 12/25/2022 at 0831 EDT. Performed By: #### L [id number] #### [facility] ([facility]) [address] [place] [address] LYMPHOCYTES/100 LEUKOCYTES IN BLOOD BY AUTOMATED COUNT 15.0 % Low 20.0-45.0 [facility] Comment on above: Result Comment: Libby ected result: Previously reported as 16.0 % (reference range: 20.0-45.0 %) on 12/25/2022 at 0831 EDT. Performed By: #### L [id number] #### [facility] ([facility]) [address] [facility] [place] [address] METAMYELOCYTES (10*3/UL) IN BLOOD BY CALCULATION 0.04 10*3/uL High 0.00-0.00 [facility] Comment on above: Performed By: #### L [id number] #### [facility] ([facility]) [address] [facility] [place] [address] METAMYELOCYTES/100 LEUKOCYTES IN BLOOD CELLAVISION 1.0 % High 0.0-0.0 [facility] Comment on above: Performed By: #### L [id number] #### [facility] ([facility]) [address] [place] [place] [address] MONOCYTES (10*3/UL) IN BLOOD BY CALCUATION 0.04 10*3/uL Low 0.10-1.00 [facility] Comment on above: Result Comment: Libby ected result: Previously reported as 0.12 10*3/uL (reference range: 0.10-1.00 10*3/uL) on 12/25/2022 at 0831 EDT. Performed By: #### L [id number] #### [facility] ([facility]) [address] [place] [place] [address] MONOCYTES/100 LEUKOCYTES IN BLOOD BY AUTOMATED COUNT 1.0 % Low 5.0-12.0 [facility] Comment on above: Result Comment: Libby ected result: Previously reported as 2.8 % (reference range: 5.0-12.0 %) on 12/25/2022 at 0831 EDT. Performed By: #### L [id number] #### [facility] ([facility]) [address] [place] [address] NEUTROPHILS (10*3/UL) IN BLOOD BY CALCULATION 3.4 10*3/uL Normal 1.6-7.6 [facility] Comment on above: Result Comment: Libby ected result: Previously reported as 2.9 10*3/uL (reference range: 1.6-7.6 10*3/uL) on 12/25/2022 at 0831 EDT. Performed By: #### L [id number] #### [facility] ([facility]) [address] [place] [address] NEUTROPHILS/100 LEUKOCYTES IN BLOOD BY AUTOMATED COUNT 80.0 % High 40.0-72.0 [facility] Comment on above: Result Comment: Libby ected result: Previously reported as 67.7 % (reference range: 40.0-72.0 %) on 12/25/2022 at 0831 EDT. Performed By: #### L [id number] #### [facility] ([facility]) [address] [place] [address] PLASMA CELLS/100 LEUKOCYTES IN BLOOD 0 % Normal 0-0 [facility] Comment on above: Performed By: #### L [id number] #### [facility] ([facility]) [address] [place] [address] PLATELETS GIANT PRESENCE IN BLOOD BY LIGHT MICROSCOPY Present Normal [facility] Comment on above: Performed By: #### L [id number] #### [facility] ([facility]) [address] [place] [address] VARIANT LYMPHOCYTES (10*3/UL) IN BLOOD BY CALCULATION 0.00 10*3/uL Normal 0.00-0.00 [facility] Comment on above: Performed By: #### L [id number] #### [facility] ([facility]) [address] [place] [address] VARIANT LYMPHOCYTES/100 LEUKOCYTES IN BLOOD CELLAVISION 0.0 % Normal 0.0-0.0 [facility] Comment on above: Performed By: #### L [id number] #### [facility] ([facility]) [address] [place] [address] [facility] PROSPERAon 12-25-2022 PROSPERA RESULT Results to be mailed directly to physician's office by reference lab. Normal [facility] Comment on above: Performed By: #### L [id number] #### [facility] , PHOSPHORUSon 12-25-2022 Magnesium [Mass/Vol] 2.6 mg/dL Normal 2.5-5.0 [facility] Comment on above: Performed By: #### L [id number] #### [facility] ([facility]) [address] [place] [address] SINGLE ANTIGEN CLASS Ion AB SCREEN COMMENTS No Class I donor spe cific antibody identified [facility] Comment on above: Performed By: #### L [id number] #### [facility] TISSUE TYPING (HISTOTRAC) [address] [place] [address] [place] CLASS I TESTED DATE Normal [facility] Comment on above: Performed By: #### L [id number] #### [facility] TISSUE TYPING (HISTOTRAC) [address] [place] [address] [facility] SIGNED BY Signed by Nelson escamilla [facility] MT(ASCP), [facility] Immunology [facility] Comment on above: Result Comment: Clas s I Antigen Microbeads Performed By: #### L [id number] #### [facility] TISSUE TYPING (HISTOTRAC) [address] [place] [address] [facility] Performed By: #### L [id number] #### [facility] ([facility]) [address] [place] [address] SINGLE ANTIGEN CLASS 1 TEST METHOD Class I Single Antigen Normal [facility] Comment on above: Performed By: #### L [id number] #### [facility] TISSUE TYPING (HISTOTRAC) [address] [place] [address] [place] SINGLE ANTIGEN CLASS IIon AB SCREEN COMMENTS No Class II donor specific antibody identified Normal [facility] Comment on above: Performed By: #### L [id number] #### [facility] [address] [place] [address] CLASS II TESTED DATE [facility] Comment on above: Performed By: #### L [id number] #### [facility] ([facility]) [address] [place] [address] SINGLE ANTIGEN CLASS 2 TEST METHOD Class II Single Antigen Normal [facility] Comment on above: Result Comment: Clas s II Antigen Microbeads Performed By: #### L [id number] #### [facility] ([facility]) [address] [place] [address] TACROLIMUS LEVELon Tacrolimus (Bld) [Mass/Vol] 11.4 ng/mL Normal 5.0-20.0 [facility] Comment on above: Result Comment: The [employer] Tacrolimus assay is a delayed one-step immunoassay for the quantitative determination of tacrolimus in human whole blood using the chemiluminescent microparticle immunoassay (CMIA) technology with flexible assay protocols, referred to as Chemiflex. Performed By: #### L [id number] #### [facility] ([facility]) [address] [place] [address] URIC ACIDon 12-25-2022 Magnesium [Mass/Vol] 2.9 mg/dL Normal 2.3-6.6 [facility] Comment on above: Performed By: #### L [id number] #### [facility] ([facility]) [address] [place] [address] PTH INTACTon 07-30-2022 PTH, Intact 107 pg/mL Critically high 15-65 [facility] Comment on above: Performed By: #### M G, URIC, RENAL #### [facility] [address] [address] [address] Hari Palmer FERRITINon 07-29-2022 Ferritin [Mass/Vol] 194.0 ng/mL Critically high 6.2-137.0 [facility] Comment on above: Performed By: #### M G, URIC, RENAL #### [facility] [address] [address] [address] Hari Palmer HEMOGRAM AND PLATELon 2021 Hematocrit (Bld) [Volume fraction] 32.8 % Critically low 36.0-48.0 [facility] Comment on above: Performed By: #### M G, URIC, RENAL #### [facility] [address] [address] [address] Hari Palmer Hemoglobin (Bld) [Mass/Vol] 10.8 g/dL Critically low 12.0-16.0 [facility] Comment on above: Performed By: #### M G, URIC, RENAL #### [facility] [address] [place] [address] Dr. Hari Palmer MCH (RBC) [Entitic mass] 31.7 pg Normal 26.7-34.0 [facility] Comment on above: Performed By: #### M G, URIC, RENAL #### [facility] [address] [place] [address] Dr. Hari Palmer MCHC (RBC) [Mass/Vol] 32.9 g/dL Normal 29.9-35.2 [facility] Comment on above: Performed By: #### M G, URIC, RENAL #### [facility] [address] [place] [address] Dr. Hari Palmer MCV (RBC) [Entitic vol] 96.2 fL Normal 81.0-99.0 [facility] Comment on above: Performed By: #### M G, URIC, RENAL #### [facility] [address] [place] [address] Dr. Hari Palmer PLT 297 103/ul Normal 150-450 [facility] Comment on above: Performed By: #### M G, URIC, RENAL #### [facility] [address] [place] [address] Dr. Hari Palmer RBC 3.41 106/ul Critically low 4.20-5.40 [facility] Comment on above: Performed By: #### M G, URIC, RENAL #### [facility] [address] [place] [address] Dr. Hari Plamer WBC 7.1 103/ul Normal 4.0-11.0 [facility] Comment on above: Performed By: #### M G, URIC, RENAL #### [facility] [address] [place] [address] Dr. Hari Palmer IRON AND TIBCon 10-24-2022 % SATURATION 19.0 % Normal [facility] Comment on above: Performed By: #### M G, URIC, RENAL #### [facility] [address] [place] [address] Dr. Hari Palmer Iron [Mass/Vol] 48.0 ug/dL Critically low 50.0-170.0 [facility] Comment on above: Performed By: #### M G, URIC, RENAL #### [facility] [address] [place] [address] Dr. Hari Palmer TIBC DIRECT 252.0 ug/dL Normal 250.0-450.0 [facility] Comment on above: Performed By: #### M G, URIC, RENAL #### [facility] [address] [place] [address] Dr. Hari Palmer MAGNESIUMon 07-29-2022 Magnesium [Mass/Vol] 2.0 mg/dL Normal 1.8-2.4 [facility] Comment on above: Performed By: #### M G, URIC, RENAL #### [facility] [address] [place] [address] Dr. Hari Palmer RENAL FUNCTION PANELon 07-29 Albumin [Mass/Vol] 3.6 g/dL Normal 3.4-5.0 [facility] Comment on above: Performed By: #### M G, URIC, RENAL #### [facility] [address] [place] [address] Dr. Hari Palmer Calcium [Mass/Vol] 8.7 mg/dL Normal 8.5-10.1 [facility] Comment on above: Performed By: #### M G, URIC, RENAL #### [facility] [address] [place] [address] Dr. Hari Palmer Chloride [Moles/Vol] 104 mmol/L Normal 98-107 [facility] Comment on above: Performed By: #### M G, URIC, RENAL #### [facility] [address] [place] [address] Dr. Hari Palmer CO2 [Moles/Vol] 21.8 mmol/L Normal 21.0-32.0 [facility] Comment on above: Performed By: #### M G, URIC, RENAL #### [facility] [address] [address] [address] Hari Palmer Creatinine [Mass/Vol] 3.83 mg/dL Critically high 0.55-1.02 [facility] Comment on above: Performed By: #### M G, URIC, RENAL #### [facility] [address] [place] [address] Dr. Hari Palmer EGFR-AF AUSTRALIAN 15 mL/min/1.73m2 Critically low >=60 [facility] Comment on above: Performed By: #### M G, URIC, RENAL #### [facility] [address] [place] [address] Dr. Hari Palmer EGFR-NON AF AUSTRALIAN 13 mL/min/1.73m2 Critically low >=60 [facility] Comment on above: Performed By: #### M G, URIC, RENAL #### [facility] [address] [place] [address] Dr. Hari Palmer Glucose [Mass/Vol] 108 mg/dL Critically high 74-106 [facility] Comment on above: Performed By: #### M G, URIC, RENAL #### [facility] [address] [place] [address] Dr. Hari Palmer Phosphate [Mass/Vol] 5.4 mg/dL Critically high 2.6-4.7 [facility] Comment on above: Performed By: #### M G, URIC, RENAL #### [facility] [address] [place] [address] Dr. Hari Palmer Potassium [Moles/Vol] 3.9 mmol/L Normal 3.5-5.1 [facility] Comment on above: Performed By: #### M G, URIC, RENAL #### [facility] [address] [place] [address] Dr. Hari Palmer Sodium [Moles/Vol] 137 mmol/L Normal 136-145 [facility] Comment on above: Performed By: #### M G, URIC, RENAL #### [facility] [address] [place] [address] Dr. Hari Palmer Urea nitrogen [Mass/Vol] 47.0 mg/dL Critically high 7.0-18.0 [facility] Comment on above: Performed By: #### M G, URIC, RENAL #### [facility] [address] [place] [address] Dr. Hari Palmer URIC ACID SERUMon 07-29-2022 Urate [Mass/Vol] 6.3 mg/dL Critically high 2.6-6.0 [facility] Comment on above: Performed By: #### M G, URIC, RENAL #### [facility] [address] [place] [address] Dr. Hari Palmer URINE T PROTEIN CREAT RATIOo n 07-29-2022 Protein (U) [Mass/Vol] 29.7 mg/dL Critically high <=12.0 [facility] Comment on above: Performed By: #### M G, URIC, RENAL #### [facility] [address] [place] [address] Dr. Hari Palmer UR PROT CREAT RAT 0.56 Normal [facility] Comment on above: Performed By: #### M G, URIC, RENAL #### [facility] [address] [place] [address] Dr. Hari Palmer URINE CREAT 53.35 mg/dL Normal 20.00-300.00 [facility] Comment on above: Performed By: #### M G, URIC, RENAL #### [facility] [address] [place] [address] Dr. Hari Palmer VITAMIN D 25 OHon 07-29-2022 VIT D 25-OH 38.8 ng/mL Normal [facility] Comment on above: Performed By: #### M G, URIC, RENAL #### [facility] [address] [place] [address] Dr. Hari Palmer VIT D RANGES SEE BELOW Normal [facility] Comment on above: Result Comment: <20 ng/mL Vit D deficient 20 - <30 ng/mL Vit D insufficient 30 - 100 ng/mL Vit D sufficient >100 ng/mL Potential Toxicity Performed By: #### M G, URIC, RENAL #### [facility] [address] [place] [address] Dr. Hari Palmer Albumin [Mass/volume] in Ser um or PlasmaOrdered By: Stanley Forman on 06-20-2022 Albumin [Mass/Vol] 3.9 g/dL 3.2-5.5 [facility] Basophils Auto (Bld) [#/Vol] Ordered By: Stanley Forman on 06-20-2022 Basophils (Bld) [#/Vol] 0.1 10*3/uL 0.0-0.2 [facility] Basophils/100 WBC Auto (Bld) Ordered By: Stanley Forman on 06-20-2022 Basophils/100 WBC (Bld) 0.7 % . [facility] Blood hemoglobin measurement (mass/volume)Ordered By: Stanley Forman on 06-20-2022 Hemoglobin (Bld) [Mass/Vol] 10.8 g/dL 11.8-15.4 [facility] Blood leukocytes automated c ount (number/volume)Ordered By: Stanley Forman on 06-20-2022 WBC (Bld) [#/Vol] 11.8 10*3/uL 4.5-11.0 [facility] C reactive protein [Mass/vol ume] in Serum or PlasmaOrdered By: Stanley Forman on 06-20-2022 CRP [Mass/Vol] 5.2 mg/dL 0.0-1.0 [facility] Creatinine and Glomerular fi ltration rate.predicted panel (S/P/Bld)Ordered By: Stanley Forman on 06-20-2022 Creatinine [Mass/Vol] 4.49 mg/dL 0.44-1.03 [facility] Eosinophils Auto (Bld) [#/Vo l]Ordered By: Stanley Forman on 06-20-2022 Eosinophils (Bld) [#/Vol] 0.4 10*3/uL 0.0-0.45 [facility] Eosinophils/100 WBC Auto (Bl d)Ordered By: Stanley Forman on 06-20-2022 Eosinophils/100 WBC (Bld) 3.2 % . [facility] Erythrocyte distribution wid th Auto (RBC) [Ratio]Ordered By: Stanley Forman on 06-20-2022 Erythrocyte distribution width (RBC) [Ratio] 14.0 % 11.9-15.3 [facility] Erythrocyte sedimentation ra te by Photometric methodOrdered By: Stanley Forman on 06-20-2022 ESR Photometric method (Bld) [Velocity] 67 mm/hr 0-19 [facility] Estimated glomerular filtrat ion rate (GFR) non- AmericanOrdered By: Stanley Forman on 06-20-2022 GFR/1.73 sq M.predicted among non-blacks MDRD (S/P/Bld) [Vol rate/Area] 11 mL/Min [facility] Globulin Calc (S) [Mass/Vol] Ordered By: Stanley Forman on 06-20-2022 Globulin (S) [Mass/Vol] 3.5 g/dL [facility] Hematocrit Auto (Bld) [Volum e fraction]Ordered By: Stanley Forman on 06-20-2022 Hematocrit (Bld) [Volume fraction] 33.1 % 34.0-46.4 [facility] - Hematology and Cell countsOrdered By: Stanley Forman on 06-20-2022 Nucleated RBC/100 WBC (Bld) [Ratio] 0.0 % 0-0.5 [facility] Lymphocytes Auto (Bld) [#/Vo l]Ordered By: Stanley Forman on 06-20-2022 Lymphocytes (Bld) [#/Vol] 1.5 10*3/uL 1.00-4.8 [facility] Lymphocytes/100 WBC Auto (Bl d)Ordered By: Stanley Forman on 06-20-2022 Lymphocytes/100 WBC (Bld) 12.3 % . [facility] MCH Auto (RBC) [Entitic mass ]Ordered By: Stanley Forman on 06-20-2022 MCH (RBC) [Entitic mass] 31.1 pg 24.7-34.3 [facility] MCHC Auto (RBC) [Mass/Vol]Or dered By: Stanley Forman on 06-20-2022 MCHC (RBC) [Mass/Vol] 32.5 g/dL 32.0-35.0 [facility] MCV Auto (RBC) [Entitic vol] Ordered By: Stanley Forman on 06-20-2022 MCV (RBC) [Entitic vol] 95.6 fL 80-100 [facility] Monocytes Auto (Bld) [#/Vol] Ordered By: Stanley Forman on 06-20-2022 Monocytes (Bld) [#/Vol] 0.5 10*3/uL 0.0-0.8 [facility] Monocytes/100 WBC Auto (Bld) Ordered By: Stanley Forman on 06-20-2022 Monocytes/100 WBC (Bld) 4.1 % . [facility] Neutrophils Auto (Bld) [#/Vo l]Ordered By: Stanley Forman on 06-20-2022 Neutrophils (Bld) [#/Vol] 9.4 10*3/uL 1.8-7.7 [facility] Neutrophils/100 WBC Auto (Bl d)Ordered By: Stanley Forman on 06-20-2022 Neutrophils/100 WBC (Bld) 79.7 % . [facility] No Panel InformationOrdered By: Stanley Forman on 06-20-2022 Estimated GFR () 13 mL/Min [facility] Comment on above: GFR estimated refere nce range: According to KDOQI guidelines, <60 ml/min/1.73m2 is sufficient to diagnose a patient with chronic kidney disease. Pharmacy Creatinine Clearance (Chem 16.48 [facility] Platelet mean volume Auto (B ld) [Entitic vol]Ordered By: Stanley Forman on 06-20-2022 Platelet mean volume (Bld) [Entitic vol] 7.0 fL 6.3-10.7 [facility] Platelets Auto (Bld) [#/Vol] Ordered By: Stanley Forman on 06-20-2022 Platelets (Bld) [#/Vol] 287 10*3/uL 150-450 [facility] Protein [Mass/volume] in Ser um or PlasmaOrdered By: Stanley Forman on 06-20-2022 Protein [Mass/Vol] 7.4 g/dL 6.1-7.9 [facility] RBC Auto (Bld) [#/Vol]Ordere d By: Stanley Forman on 06-20-2022 RBC (Bld) [#/Vol] 3.46 10*6/uL 3.60-5.00 [facility] Serum or plasma alanine cesar otransferase measurement without P-5'-P (enzymatic activiOrdered By: Stanley Forman on 06-20-2022 ALT No additional P-5'-P [Catalytic activity/Vol] 11 U/L 10-60 [facility] Serum or plasma albumin/glob ulin mass ratioOrdered By: Stanley Forman on 06-20-2022 Albumin/Globulin [Mass ratio] 1.1 {ratio} [facility] Serum or plasma alkaline gina sphatase measurement (enzymatic activity/volume)Ordered By: Stanley Forman on 06-20-2022 ALP [Catalytic activity/Vol] 82 U/L 32-92 [facility] Serum or plasma anion gap de terminationOrdered By: Stanley Forman on 06-20-2022 Anion gap [Moles/Vol] 16.2 mmol/L 6.0-15.0 [facility] Serum or plasma aspartate am inotransferase measurement (enzymatic activity/volume)Ordered By: Stanley Forman on 06-20-2022 AST [Catalytic activity/Vol] 15 U/L 10-42 [facility] Serum or plasma calcium ge urement (mass/volume)Ordered By: Stanley Forman on 06-20-2022 Calcium [Mass/Vol] 9.3 mg/dL 8.2-10.2 [facility] Serum or plasma chloride lee surement (moles/volume)Ordered By: Stanley Forman on 06-20-2022 Chloride [Moles/Vol] 103 mmol/L 95-114 [facility] Serum or plasma glucose ge urement (mass/volume)Ordered By: Stanley Forman on 06-20-2022 Glucose [Mass/Vol] 75 mg/dL 70-100 [facility] Comment on above: ADA recommended refe rence rangeRandom Glucose Reference Range is dependent on time and content of last meal. Glucose of more than 200 mg/dL in a nonstressed, ambulatory subject supports the diagnosis of Diabetes Mellitus. Serum or plasma potassium me asurement (moles/volume)Ordered By: Stanley Forman on 06-20-2022 Potassium [Moles/Vol] 4.3 mmol/L 3.5-5.1 [facility] Serum or plasma sodium measu rement (moles/volume)Ordered By: Stanley Forman on 06-20-2022 Sodium [Moles/Vol] 135 mmol/L 136-146 [facility] Serum or plasma total biliru bin measurement (mass/volume)Ordered By: Stanley Forman on 06-20-2022 Bilirubin [Mass/Vol] 0.3 mg/dL 0.3-1.2 [facility] Serum or plasma total carbon dioxide measurement (moles/volume)Ordered By: Stanley Forman on 06-20-2022 CO2 [Moles/Vol] 20.1 mmol/L 22.0-30.0 [facility] Serum or plasma urea nitroge n measurement (mass/volume)Ordered By: Stanley Forman on 06-20-2022 Urea nitrogen [Mass/Vol] 42 mg/dL 06-28 [facility] COVID-19 Positive/NegativeOr dered By: Jesus Parham on 06-14-2022 SARS-CoV-2 (COVID-19) N gene AMBERLY+probe Ql (Resp) Negative Negative [facility] Comment on above: Testing for SARS-CoV -2 by RT-PCR This test was developed and its performance characteristics determined by [employer] ([employer] and validated at the [facility]. This test has not been [...] developed and its performance characteristics determined by [employer] and validated at the [facility]. This test has not been [...] (CA) 125 10.8 U/mL Normal 0.0-38.1 [facility] Comment on above: Result Comment: [employer] Electrochemiluminescence Immunoassay (ECLIA) . Values obtained with different assay methods or kits cannot be used interchangeably. Results cannot be interpreted as absolute evidence of the presence or absence of malignant disease. Performed By: #### M G, URIC, RENAL #### [facility] [address] [address] [address] Hari Palmer CEAon 06-08-2022 CEA 0.9 ng/mL Normal 0.0-4.7 [facility] Comment on above: Result Comment: Nons mokers <3.9 Smokers <5.6 . [employer] Electrochemiluminescence Immunoassay (ECLIA) . Values obtained with different assay methods or kits cannot be used interchangeably. Results cannot be interpreted as absolute evidence of the presence or absence of malignant disease. Performed By: #### C EA. #### [facility] [address] [address] [address] Hari Palmer Basophils Auto (Bld) [#/Vol] Ordered By: Jesus Parham on 06-05-2022 Basophils (Bld) [#/Vol] 0.0 10*3/uL 0.0-0.2 [facility] Basophils/100 WBC Auto (Bld) Ordered By: Jesus Parham on 06-05-2022 Basophils/100 WBC (Bld) 0.3 % . [facility] Blood hemoglobin measurement (mass/volume)Ordered By: Jesus Parham on 06-05-2022 Hemoglobin (Bld) [Mass/Vol] 12.0 g/dL 11.8-15.4 [facility] Blood leukocytes automated c ount (number/volume)Ordered By: Jesus Parham on 06-05-2022 WBC (Bld) [#/Vol] 8.5 10*3/uL 4.5-11.0 [facility] Creatinine and Glomerular fi ltration rate.predicted panel (S/P/Bld)Ordered By: Jesus Parham on 06-05-2022 Creatinine [Mass/Vol] 3.52 mg/dL 0.44-1.03 [facility] Eosinophils Auto (Bld) [#/Vo l]Ordered By: Jesus Parham on 06-05-2022 Eosinophils (Bld) [#/Vol] 0.2 10*3/uL 0.0-0.45 [facility] Eosinophils/100 WBC Auto (Bl d)Ordered By: Jesus Parham on 06-05-2022 Eosinophils/100 WBC (Bld) 2.7 % . [facility] Erythrocyte distribution wid th Auto (RBC) [Ratio]Ordered By: Jesus Parham on 06-05-2022 Erythrocyte distribution width (RBC) [Ratio] 14.2 % 11.9-15.3 [facility] Estimated glomerular filtrat ion rate (GFR) non- AmericanOrdered By: Jesus Parham on 06-05-2022 GFR/1.73 sq M.predicted among non-blacks MDRD (S/P/Bld) [Vol rate/Area] 14 mL/Min [facility] Hematocrit Auto (Bld) [Volum e fraction]Ordered By: Jesus Parham on 06-05-2022 Hematocrit (Bld) [Volume fraction] 35.8 % 34.0-46.4 [facility] - Hematology and Cell countsOrdered By: Jesus Parham on 06-05-2022 Nucleated RBC/100 WBC (Bld) [Ratio] 0.1 % 0-0.5 [facility] Lymphocytes Auto (Bld) [#/Vo l]Ordered By: Jesus Parham on 06-05-2022 Lymphocytes (Bld) [#/Vol] 1.6 10*3/uL 1.00-4.8 [facility] Lymphocytes/100 WBC Auto (Bl d)Ordered By: Jesus Parham on 06-05-2022 Lymphocytes/100 WBC (Bld) 19.3 % . [facility] MCH Auto (RBC) [Entitic mass ]Ordered By: Jesus Parham on 06-05-2022 MCH (RBC) [Entitic mass] 31.5 pg 24.7-34.3 [facility] MCHC Auto (RBC) [Mass/Vol]Or dered By: Jesus Parham on 06-05-2022 MCHC (RBC) [Mass/Vol] 33.3 g/dL 32.0-35.0 [facility] MCV Auto (RBC) [Entitic vol] Ordered By: Jesus Parham on 06-05-2022 MCV (RBC) [Entitic vol] 94.4 fL 80-100 [facility] Monocytes Auto (Bld) [#/Vol] Ordered By: Jesus Parham on 06-05-2022 Monocytes (Bld) [#/Vol] 0.3 10*3/uL 0.0-0.8 [facility] Monocytes/100 WBC Auto (Bld) Ordered By: Jesus Parham on 06-05-2022 Monocytes/100 WBC (Bld) 3.9 % . [facility] Neutrophils Auto (Bld) [#/Vo l]Ordered By: Jesus Parham on 06-05-2022 Neutrophils (Bld) [#/Vol] 6.2 10*3/uL 1.8-7.7 [facility] Neutrophils/100 WBC Auto (Bl d)Ordered By: Jesus Parham on 06-05-2022 Neutrophils/100 WBC (Bld) 73.8 % . [facility] No Panel InformationOrdered By: Jesus Parham on 06-05-2022 Estimated GFR () 17 mL/Min [facility] Comment on above: GFR estimated refere nce range: According to KDOQI guidelines, <60 ml/min/1.73m2 is sufficient to diagnose a patient with chronic kidney disease. Pharmacy Creatinine Clearance (Chem N/A [facility] Platelet mean volume Auto (B ld) [Entitic vol]Ordered By: Jesus Parham on 06-05-2022 Platelet mean volume (Bld) [Entitic vol] 7.3 fL 6.3-10.7 [facility] Platelets Auto (Bld) [#/Vol] Ordered By: Jesus Parham on 06-05-2022 Platelets (Bld) [#/Vol] 312 10*3/uL 150-450 [facility] RBC Auto (Bld) [#/Vol]Ordere d By: Jesus Parham on 06-05-2022 RBC (Bld) [#/Vol] 3.80 10*6/uL 3.60-5.00 [facility] Serum or plasma anion gap de terminationOrdered By: Jesus Parham on 06-05-2022 Anion gap [Moles/Vol] 15.1 mmol/L 6.0-15.0 [facility] Serum or plasma calcium ge urement (mass/volume)Ordered By: Jesus Parham on 06-05-2022 Calcium [Mass/Vol] 9.5 mg/dL 8.2-10.2 [facility] Serum or plasma chloride lee surement (moles/volume)Ordered By: Jesus Parham on 06-05-2022 Chloride [Moles/Vol] 106 mmol/L 95-114 [facility] Serum or plasma glucose ge urement (mass/volume)Ordered By: Jesus Parham on 06-05-2022 Glucose [Mass/Vol] 91 mg/dL 70-100 [facility] Comment on above: ADA recommended refe rence [...] on 06-05-2022 Potassium [Moles/Vol] 4.4 mmol/L 3.5-5.1 [facility] Serum or plasma sodium measu rement (moles/volume)Ordered By: Jesus Dione on 06-05-2022 Sodium [Moles/Vol] 137 mmol/L 136-146 [facility] Serum or plasma total carbon dioxide measurement (moles/volume)Ordered By: Jesus Dione on 06-05-2022 CO2 [Moles/Vol] 20.3 mmol/L 22.0-30.0 [facility] Serum or plasma urea nitroge n measurement (mass/volume)Ordered By: Jesushelio Parham on 06-05-2022 Urea nitrogen [Mass/Vol] 38 mg/dL 9- [facility] PTH INTACTon 04-29-2022 PTH, Intact 191 pg/mL Critically high 15-65 [facility] Comment on above: Performed By: #### M Edy URIC, RENAL #### [facility] [address] [address] [address] Hari Palmer VIT D 25-OH LABCORPon 2021 Vitamin D, 25-Hydroxy 33.6 ng/mL Normal 30.0-100.0 [facility] Comment on above: Result Comment: Ning min D deficiency has been defined by the [employer] and an Endocrine Society practice guideline as a level of serum 25-OH vitamin D less than 20 ng/mL (1,2). The Endocrine Society went on to further define vitamin D insufficiency as a level between 21 and 29 ng/mL (2). 1. IOM ([employer]). 2010. Dietary reference intakes for calcium and D. [place]: The National Academies Press. 2. Chantel MF, Landen [place], Eliseo STEPHENS, et al. Evaluation, treatment, and prevention of vitamin D deficiency: an Endocrine Society clinical practice guideline. JCEM. 2010; 96(7):1911-30. Performed By: #### M G, URIC, RENAL #### [facility] [address] [address] [address] Hari Palmer ABO AND RH TYPEon 04-27-2022 ABO and Rh group Nom (Bld) ABO Rh Typing O Rh Positive Normal [facility] Comment on above: Performed By: #### M G, URIC, RENAL #### [facility] [address] [place] [address] Dr. Hari Palmer FERRITINon 04-27-2022 Ferritin [Mass/Vol] 273.0 ng/mL Critically high 6.2-137.0 [facility] Comment on above: Performed By: #### M G, URIC, RENAL #### [facility] [address] [place] [address] Dr. Hari Palmer HEMOGRAM AND PLATELon 2021 Hematocrit (Bld) [Volume fraction] 33.9 % Critically low 36.0-48.0 [facility] Comment on above: Performed By: #### M G, URIC, RENAL #### [facility] [address] [place] [address] Dr. Hari Palmer Hemoglobin (Bld) [Mass/Vol] 11.4 g/dL Critically low 12.0-16.0 [facility] Comment on above: Performed By: #### M G, URIC, RENAL #### [facility] [address] [place] [address] Dr. Hari Palmer MCH (RBC) [Entitic mass] 31.7 pg Normal 26.7-34.0 [facility] Comment on above: Performed By: #### M G, URIC, RENAL #### [facility] [address] [place] [address] Dr. Hari Palmer MCHC (RBC) [Mass/Vol] 33.6 g/dL Normal 29.9-35.2 [facility] Comment on above: Performed By: #### M G, URIC, RENAL #### [facility] [address] [place] [address] Dr. Hari Palmer MCV (RBC) [Entitic vol] 94.2 fL Normal 81.0-99.0 [facility] Comment on above: Performed By: #### M G, URIC, RENAL #### [facility] [address] [place] [address] Dr. Hari Palmer PLT 333 103/ul Normal 150-450 [facility] Comment on above: Performed By: #### M G, URIC, RENAL #### [facility] [address] [address] [address] Hari Palmer RBC 3.60 106/ul Critically low 4.20-5.40 [facility] Comment on above: Performed By: #### M G, URIC, RENAL #### [facility] [address] [place] [address] Dr. Hari Palmer WBC 9.7 103/ul Normal 4.0-11.0 [facility] Comment on above: Performed By: #### M G, URIC, RENAL #### [facility] [address] [place] [address] Dr. Hari Palmer IRON AND TIBCon 04-27-2022 % SATURATION 20.1 % Normal [facility] Comment on above: Performed By: #### M G, URIC, RENAL #### [facility] [address] [place] [address] Dr. Hari Palmer Iron [Mass/Vol] 57.0 ug/dL Normal 50.0-170.0 [facility] Comment on above: Performed By: #### M G, URIC, RENAL #### [facility] [address] [place] [address] Dr. Hari Palmer TIBC DIRECT 283.0 ug/dL Normal 250.0-450.0 [facility] Comment on above: Performed By: #### M G, URIC, RENAL #### [facility] [address] [place] [address] Dr. Hari Palmer MAGNESIUMon 04-27-2022 Magnesium [Mass/Vol] 2.1 mg/dL Normal 1.8-2.4 [facility] Comment on above: Performed By: #### R ENAL, URIC, MG #### [facility] [address] [place] [address] Dr. Hari Palmer RENAL FUNCTION PANELon 04-27 Albumin [Mass/Vol] 3.6 g/dL Normal 3.4-5.0 [facility] Comment on above: Performed By: #### R ENAL, URIC, MG #### [facility] [address] [place] [address] Dr. Hari Palmer Calcium [Mass/Vol] 9.0 mg/dL Normal 8.5-10.1 [facility] Comment on above: Performed By: #### R ENAL, URIC, MG #### [facility] [address] [place] [address] Dr. Hari Palmer Chloride [Moles/Vol] 104 mmol/L Normal 98-107 [facility] Comment on above: Performed By: #### R ENAL, URIC, MG #### [facility] [address] [place] [address] Dr. Hari Palmer CO2 [Moles/Vol] 23.0 mmol/L Normal 21.0-32.0 [facility] Comment on above: Performed By: #### R ENAL, URIC, MG #### [facility] [address] [place] [address] Dr. Hari Palmer Creatinine [Mass/Vol] 3.38 mg/dL Critically high 0.55-1.02 [facility] Comment on above: Performed By: #### R ENAL, URIC, MG #### [facility] [address] [place] [address] Dr. Hari Palmer EGFR-AF AUSTRALIAN 18 mL/min/1.73m2 Critically low >=60 [facility] Comment on above: Performed By: #### R ENAL, URIC, MG #### [facility] [address] [place] [address] Dr. Hari Palmer EGFR-NON AF AUSTRALIAN 15 mL/min/1.73m2 Critically low >=60 [facility] Comment on above: Performed By: #### R ENAL, URIC, MG #### [facility] [address] [place] [address] Dr. Hari Palmer Glucose [Mass/Vol] 113 mg/dL Critically high 74-106 T [facility] Comment on above: Performed By: #### R ENAL, URIC, MG #### [facility] [address] [place] [address] Dr. Hari Palmer Phosphate [Mass/Vol] 4.4 mg/dL Normal 2.6-4.7 [facility] Comment on above: Performed By: #### R ENAL, URIC, MG #### [facility] [address] [place] [address] Dr. Hari Palmer Potassium [Moles/Vol] 4.0 mmol/L Normal 3.5-5.1 [facility] Comment on above: Performed By: #### R ENAL, URIC, MG #### [facility] [address] [place] [address] Dr. Hari Palmer Sodium [Moles/Vol] 137 mmol/L Normal 136-145 [facility] Comment on above: Performed By: #### R ENAL, URIC, MG #### [facility] [address] [place] [address] Dr. Hari Palmer Urea nitrogen [Mass/Vol] 44.0 mg/dL Critically high 7.0-18.0 [facility] Comment on above: Performed By: #### R ENAL, URIC, MG #### [facility] [address] [place] [address] Dr. Hari Palmer URIC ACID SERUMon 04-27-2022 Urate [Mass/Vol] 6.6 mg/dL Critically high 2.6-6.0 [facility] Comment on above: Performed By: #### R ENAL, URIC, MG #### [facility] [address] [place] [address] Dr. Hari Palmer URINE T PROTEIN CREAT RATIOo n 04-27-2022 Protein (U) [Mass/Vol] 31.4 mg/dL Critically high <=12.0 [facility] Comment on above: Performed By: #### M G, URIC, RENAL #### [facility] [address] [place] [address] Dr. Hari Palmer UR PROT CREAT RAT 0.55 Normal [facility] Comment on above: Performed By: #### M G, URIC, RENAL #### [facility] [address] [place] [address] Dr. Hari Palmer URINE CREAT 57.50 mg/dL Normal 20.00-300.00 [facility] Comment on above: Performed By: #### M G, URIC, RENAL #### [facility] [address] [place] [address] Dr. Hari Palmer ECHOCARDIO M/2D COMPLETEon 0 03-29-2022 ECHOCARDIO M/2D COMPLETE Patient: MANDEEP PURI Exam Date: 03/29/2022 : 1975 Gender:F Ordering : HAIDER FRENCH M.D. Admission #: [id number] Family : Order #: [id number] CLICK HERE TO VIEW EXAM ECHOCARDIOGRAM REPORT [...] Area(A4C): 17.00 cm2 Left Atrium Systolic Volume(A2C): 17784 mm3 Left Atrium Systolic Volume(A4C): 99787 mm3 Mitral Valve MV E to A Ratio: 0.80 Deceleration [place]: 3210 mm/s2 Mitral Valve A-Wave Peak Velocity: [...] M.D. on 04/01/2022 at 12:33 Normal [facility] COVID-19 SOFIAOrdered By: Mary Beth Jones on 03-28-2022 SARS-CoV+SARS-CoV-2 (COVID-19) Ag IA.rapid Ql (Resp) Negative Negative [facility] Comment on above: This is a duplicate Ada SARS Antigen (GLORIA) result to be used for statistical tracking purpose only. No Panel InformationOrdered By: Shabbir Jones on 03-28-2022 SARS Antigen (LFIA) [facility] BLOOD TYPE AND RHon 02-13-20 22 ABO INTERPRETATION O Normal [facility] Comment on above: Performed By: #### 3 1397, 02604, 31337, 80237, 88907 #### [facility] [address] [place] [address], [facility] RH INTERPRETATION Positive Normal [facility] Comment on above: Performed By: #### 3 1397, 77086, 90976, 51659, 69363 #### [facility] [address] BNP (B-TYPE NATRIURETIC PEPT JOEL)on 02-12-2022 Natriuretic peptide B (Bld) [Mass/Vol] 10 pg/mL Normal 0-100 [facility] Comment on above: Result Comment: Give n the appropriate clinical setting a BNP result of >100 pg/mL indicates congestive heart failure. Performed By: #### 8 5123, 00925 #### [facility] [address] CBC W/DIFFon 02-12-2022 ABS IMM GRANS 0.2 10*3/uL Normal 0.0-0.2 [facility] Comment on above: Performed By: #### 3 1397, 09405, 12470, 53711, 67142 #### [facility] [address] ABS NEUTROPHILS 7.8 10*3/uL High 1.6-7.6 [facility] Comment on above: Performed By: #### 3 1397, 91951, 28944, 83976, 56983 #### [facility] [address] Basophils (Bld) [#/Vol] 0.1 10*3/uL Normal 0.0-0.2 [facility] Comment on above: Performed By: #### 3 1397, 08722, 84104, 90855, 23841 #### [facility] [address] [place] [address], [facility] Basophils/100 WBC (Bld) 0.6 % Normal 0.0-1.0 [facility] Comment on above: Performed By: #### 3 1397, 20060, 24308, 16338, 47877 #### [facility] [address] [place] [address], [facility] Eosinophils (Bld) [#/Vol] 0.3 10*3/uL Normal 0.0-0.5 [facility] Comment on above: Performed By: #### 3 1397, 93326, 53579, 03031, 34500 #### [facility] [address] [place] [address], [facility] Eosinophils/100 WBC (Bld) 2.5 % Normal 0.0-6.0 [facility] Comment on above: Performed By: #### 3 1397, 06411, 75220, 78319, 21148 #### [facility] [address] [facility] [address] Erythrocyte distribution width (RBC) [Ratio] 13.6 % Normal 11.5-15.0 [facility] Comment on above: Performed By: #### 3 1397, 32796, 56777, 25470, 50948 #### [facility] [address] [facility] [address] Hematocrit (Bld) [Volume fraction] 34.5 % Low 36.0-45.0 [facility] Comment on above: Performed By: #### 3 1397, 27655, 52252, 81365, 95007 #### [facility] [address] [facility] [place] [address], [facility] Hemoglobin (Bld) [Mass/Vol] 11.3 g/dL Low 12.0-15.0 [facility] Comment on above: Performed By: #### 3 1397, 30866, 44067, 27814, 44451 #### [facility] [address] [place] [address], [facility] IMMATURE GRANS 1.4 % High 0.0-1.0 [facility] Comment on above: Performed By: #### 3 1397, 34824, 33398, 36638, 69364 #### [facility] [address] [place] [address], [facility] Lymphocytes (Bld) [#/Vol] 2.0 10*3/uL Normal 1.2-4.0 [facility] Comment on above: Performed By: #### 3 1397, 32350, 99961, 13844, 65996 #### [facility] [address] [place] [address], [facility] Lymphocytes/100 WBC (Bld) 18.6 % Low 20.0-45.0 [facility] Comment on above: Performed By: #### 3 1397, 40935, 69145, 23544, 29905 #### [facility] [address] [facility] [place] [address], [facility] MCH (RBC) [Entitic mass] 31.3 pg Normal 27.0-33.0 [facility] Comment on above: Performed By: #### 3 1397, 44327, 59307, 83675, 25022 #### [facility] [address] [facility] [place] [address], [facility] MCHC (RBC) [Mass/Vol] 32.8 g/dL Normal 32.0-35.0 [facility] Comment on above: Performed By: #### 3 1397, 35446, 55932, 22767, 72910 #### [facility] [address] [facility] [place] [address], [facility] MCV (RBC) [Entitic vol] 95.6 fL Normal 82.0-98.0 [facility] Comment on above: Performed By: #### 3 1397, 31491, 46228, 24558, 04865 #### [facility] [address] [facility] [place] [address], [facility] Monocytes (Bld) [#/Vol] 0.5 10*3/uL Normal 0.1-1.0 [facility] Comment on above: Performed By: #### 3 1397, 91449, 32471, 45499, 33136 #### [facility] [address] [place] [id number], [facility] MONOS 4.9 % Low 5.0-12.0 [facility] Comment on above: Performed By: #### 3 1397, 01409, 77112, 59814, 25511 #### [facility] [address] [facility] [place] [address], [facility] Neutrophils/100 WBC (Bld) 72.0 % Normal 40.0-72.0 [facility] Comment on above: Performed By: #### 3 1397, 99275, 54897, 73066, 32369 #### [facility] [address] [facility] [place] [address], [facility] Nucleated RBC/100 WBC (Bld) [Ratio] 0 % Normal 0-0 [facility] Comment on above: Performed By: #### 3 1397, 36069, 42780, 82719, 22401 #### [facility] [address] [facility] [place] [address], [facility] PLAT CNT 315 10*3/uL Normal 150-400 [facility] Comment on above: Performed By: #### 3 1397, 38132, 98385, 48304, 11348 #### [facility] [address] [place] [address], [facility] RBC (Bld) [#/Vol] 3.61 10*6/uL Low 3.80-5.00 [facility] Comment on above: Performed By: #### 3 1397, 14247, 61130, 52222, 76367 #### [facility] [address] [facility] [place] [address], [facility] WBC (Bld) [#/Vol] 10.78 10*3/uL High 4.00-10.60 [facility] Comment on above: Performed By: #### 3 1397, 60914, 33340, 88821, 58309 #### [facility] [address] [facility] [place] [address], [facility] CHEST AND LATERALon 02-13-20 CHEST AND LATERAL [facility] Department of Radiology [address] [place] [address] [id number] Patient Name: MANDEEP PURI : 1975 Sex: [...] pathology. Electronically signed: Royal Dominguez. Transcribed by: [email or web address], User Resident: Electronically Signed by: ROYAL DOMINGUEZ @ 02/13/2022 11:48 AM Normal [facility] CMV IGG BLOODon 02-12-2022 CMV IGG 3.13 Normal [facility] Comment on above: Result Comment: NORM AL RANGES: < OR = 0.9O NEGATIVE ; NO DETECTABLE IgG ANTIBODY TO CMV 0.91 - 1.09 EQUIVOCAL; REPEAT TESTING SUGGESTED > OR = 1.10 POSITIVE ; INDICATES PRESENCE OF DETECTABLE IgG ANTIBODY TO CMV Performed By: #### 3 1397, 09601, 05485, 59082, 13926 #### [facility] [address] [place] [address], [facility] COMP METABOLIC PANELon 02-12 Albumin [Mass/Vol] 4.5 g/dL Normal 3.5-5.7 [facility] Comment on above: Performed By: #### 2 2505, 13067, 83053 #### [facility] [address] [place] [address], [facility] ALKALINE PHOSPH 89 IU/L Normal 34-104 [facility] Comment on above: Performed By: #### 2 2505, 24003, 03957 #### [facility] [address] [place] [address], [facility] ALT [Catalytic activity/Vol] 12 U/L Normal 7-52 [facility] Comment on above: Performed By: #### 2 2505, 61410, 59418 #### [facility] [address] [facility] [place] [address], [facility] AST [Catalytic activity/Vol] 13 U/L Normal 13-39 [facility] Comment on above: Performed By: #### 2 2505, 98264, 03154 #### [facility] [address] [place] [id number], [facility] Bilirubin [Mass/Vol] 0.3 mg/dL Normal 0.3-1.0 [facility] Comment on above: Performed By: #### 2 2505, 97817, 40585 #### [facility] [address] [place] [address], [place] Calcium [Mass/Vol] 9.5 mg/dL Normal 8.6-10.3 [facility] Comment on above: Performed By: #### 2 2505, 80194, 19615 #### [facility] [address] [place] [address], [place] Chloride [Moles/Vol] 103 mmol/L Normal 98-107 [facility] Comment on above: Performed By: #### 2 2505, 92933, 80625 #### [facility] [address] [place] [address], [place] CO2 [Moles/Vol] 22 mmol/L Normal 21-31 [facility] Comment on above: Performed By: #### 2 2505, 67276, 16763 #### [facility] [address] [place] [address], [place] Creatinine [Mass/Vol] 3.51 mg/dL High 0.60-1.20 [facility] Comment on above: Performed By: #### 2 2505, , 86988 #### [facility] [address] [place] [address], [place] eGFR- 17 ml/min/1.73sq m Abnormal >60 [facility] Comment on above: Performed By: #### 2 2505, 14415, 52501 #### [facility] [address] [place] [address], [place] eGFR- non- 14 ml/min/1.73sq m Abnormal >60 [facility] Comment on above: Performed By: #### 2 2505, 05940, 67956 #### [facility] [address] [place] [address], [place] Glucose [Mass/Vol] 100 mg/dL Normal 70-100 [facility] Comment on above: Performed By: #### 2 2505, 66803, 87319 #### [facility] [address] [place] [address], [place] Potassium [Moles/Vol] 3.9 mmol/L Normal 3.5-5.1 [facility] Comment on above: Performed By: #### 2 2505, 95801, 21538 #### [facility] [address] [place] [address], [facility] Protein [Mass/Vol] 8.0 g/dL Normal 6.0-8.3 [facility] Comment on above: Performed By: #### 2 2505, 42207, 97902 #### [facility] [address] [place] [address], [facility] Sodium [Moles/Vol] 136 mmol/L Normal 136-145 [facility] Comment on above: Performed By: #### 2 2505, 97564, 01245 #### [facility] [address] [place] [address], [facility] Urea nitrogen [Mass/Vol] 41 mg/dL High 7-25 [facility] Comment on above: Performed By: #### 2 2505, 35633, 41008 #### [facility] [address] [place] [address], [facility] CREATININE URINE RANDOMon Creatinine (U) [Mass/Vol] 63.0 mg/dL Normal [facility] Comment on above: Result Comment: Ther e are no established reference values for random urine specimens Performed By: #### 3 1397, 88735, 18234, 27582, 44840 #### [facility] [address] [place] [address], [facility] CT RENAL RECIPIENT ABDOMEN A ND PEVLIS WO CONTRASTon 02-12-2022 CT RENAL RECIPIENT ABDOMEN AND PEVLIS WO CONTRAST [facility] Department of Radiology [address] [place] [address] Patient Name: MANDEEP PURI : 1975 Sex: F Age: Race: White Pt. 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 Please evaluate [...] achievable. Electronically signed: NAN SARAVIA. Transcribed by: [email or web address], User Resident: Electronically Signed by: NAN SARAVIA @ 02/12/2022 02:59 PM Normal [facility] Comment on above: Order Comment: , Pre [...] Bilirubin.direct [Mass/Vol] 0.0 mg/dL Normal 0.0-0.2 [facility] Comment on above: Performed By: #### 2 7762, 43500, 41081 #### [facility] [address] [place] [address], [facility] BRETT LAGUERRE VIRUS ABon 05-1 EB VCA IGG 2.35 Normal [facility] Comment on above: Order Comment: CONSI STENT WITH PAST EBV INFECTION Result Comment: NORM AL RANGES: < OR = 0.9O NEGATIVE ; NO DETECTABLE IgG ANTIBODY TO EBV-VCA 0.91 - 1.09 EQUIVOCAL; REPEAT TESTING SUGGESTED > OR = 1.10 POSITIVE ; INDICATES PRESENCE OF DETECTABLE IgG ANTIBODY TO EBV Performed By: #### 3 1397, 94724, 84677, 90493, 79194 #### [facility] [address] [place] [address], [facility] EB VCA IGM 0.00 Normal [facility] Comment on above: Order Comment: CONSI STENT WITH PAST EBV INFECTION Result Comment: NORM AL RANGES: < OR = 0.9O NEGATIVE ; NO SIGNIFICANT LEVEL OF DETECTABLE EBV-VCA IgM AB 0.91 - 1.09 EQUIVOCAL; REPEAT TESTING SUGGESTED > OR = 1.10 POSITIVE ; SIGNIFICANT LEVEL OF DETECTABLE EBV-VCA IgM AB Performed By: #### 3 1397, 68120, 65375, 42616, 26762 #### [facility] [address] [facility] [address] HEMOGLOBIN A1Con 02-12-2022 Glucose [Moles/Vol] 120 mmol/L Normal [facility] Comment on above: Performed By: #### 8 8253, 08692 #### [facility] [address] [facility] [address] HbA1c (Bld) [Mass fraction] 5.8 % Normal 4.0-6.0 [facility] Comment on above: Performed By: #### 8 5183, 83321 #### [facility] [address] [facility] [address] HEPATITIS A ANTIBODY IGMon 0 02-12-2022 HEP A AB IGM Non-Reactive Normal NONREACTIVE [facility] Comment on above: Performed By: #### 3 1397, 01780, 18026, 04281, 82141 #### [facility] [address] [place] [address], [facility] HEPATITIS B CORE ANTIBODYon 02-12-2022 HEP B CORE AB Non-Reactive Normal NONREACTIVE [facility] Comment on above: Performed By: #### 3 1397, 56822, 18322, 84485, 86805 #### [facility] [address] [facility] [address] HEPATITIS B SURFACE ANTIBODY QUANTon 02-12-2022 HEP B SURF AB 1.14 mIU/ml Normal [facility] Comment on above: Result Comment: INTE RPRETATION: NONREACTIVE<8.00 mIU/mL INDETERMINATE8.00 - 12.00 mIU/mL REACTIVE>12 mIU/mL Performed By: #### 3 1397, 11004, 11010, 79822, 57298 #### [facility] [address] [facility] [address] HEPATITIS B SURFACE ANTIGEN QUALon 02-12-2022 HEP B SURF AG QUAL Non-Reactive Normal NONREACTIVE [facility] Comment on above: Performed By: #### 3 1397, 99787, 11654, 74384, 36734 #### [facility] [address] [place] [address], [facility] HEPATITIS C ANTIBODYon 02-12 ANTI-HCV Non-Reactive Normal NONREACTIVE [facility] Comment on above: Performed By: #### 3 1397, 85789, 49028, 06111, 56809 #### [facility] [address] [facility] [address] HIV1 AND 2 COMBO 4Gon 2021 HIV COMBO Negative Normal NEGATIVE [facility] Comment on above: Performed By: #### 3 1397, 59503, 63978, 21187, 95541 #### [facility] [facility] [address] [facility] [address] HLA ABC CLASS I TYPINGon A*-1 EQUIVALENT 1 Normal [facility] Comment on above: Order Comment: Some of [...] to frequency. Performed By: #### 3 1397, 33458, 27575, 53172, 86759 #### [facility] [address] [place] [address], [place] A*-2 EQUIVALENT 2 Normal [facility] Comment on above: Order Comment: Some of [...] to frequency. Performed By: #### 3 1397, 36714, 49553, 70466, 46748 #### [facility] [address] [place] [address], [place] B*-1 EQUIVALENT 35 Normal [facility] Comment on above: Order Comment: Some of [...] to frequency. Performed By: #### 3 1397, 17377, 80559, 74267, 63500 #### [facility] [address] [place] [address], [place] B*-2 EQUIVALENT 37 Normal [facility] Comment on above: Order Comment: Some of [...] to frequency. Performed By: #### 3 1397, 05662, 50842, 86668, 65766 #### [facility] [address] [place] [address], [place] Bw*-1 EQUIVALENT 4 Normal [facility] Comment on above: Order Comment: Some of [...] to frequency. Performed By: #### 3 1397, 85481, 91025, 69549, 51968 #### [facility] [address] [place] [address], [place] Bw*-2 EQUIVALENT 6 Normal [facility] Comment on above: Order Comment: Some of [...] to frequency. Performed By: #### 3 1397, 31055, 63721, 63409, 92312 #### [facility] [address] [place] [address], [place] C*-1 EQUIVALENT 4 Normal [facility] Comment on above: Order Comment: Some of [...] to frequency. Performed By: #### 3 1397, 39187, 69158, 94720, 16085 #### [facility] [address] C*-2 EQUIVALENT 6 Normal [facility] Comment on above: Order Comment: Some of [...] to frequency. Performed By: #### 3 1397, 89158, 85067, 28489, 81457 #### [facility] [address] [facility]. [address] METHOD Class I Typing by PCR-SSOP Luminex Normal [facility] Comment on above: Order Comment: Some of [...] to frequency. Performed By: #### 3 1397, 41485, 57309, 74470, 15652 #### [facility] [address] [place] [address], [facility] SIGNED BY Normal [facility] Comment on above: Order Comment: Some of [...] not probable, due to frequency. Result Comment: Nelson Noriega, MS,CHT(DONA),MT(ASCP) Dross Skimmer, Transplant Immunology Performed By: #### 3 1397, 60763, 56556, 80209, 22744 #### [facility] [address] [place] [address], [facility] HLA DR CLASS II TYPINGon DPB1*-1 EQUIVALENT 04:01 Normal [facility] Comment on above: Order Comment: Some of [...] to frequency. Performed By: #### 3 1397, 52563, 24686, 33116, 92210 #### [facility] [address] [facility] [place] [address], [facility] DPB1*-2 EQUIVALENT 04:02 Normal [facility] Comment on above: Order Comment: Some of [...] to frequency. Performed By: #### 3 1397, 41568, 67957, 40170, 78909 #### [facility] [address] [place] [address], [facility] DQA1*-1 EQUIVALENT 01 Normal [facility] Comment on above: Order Comment: Some of [...] to frequency. Performed By: #### 3 1397, 18114, 74766, 79719, 53429 #### [facility] [address] [place] [address], [place] DQA1*-2 EQUIVALENT 05 Normal [facility] Comment on above: Order Comment: Some of [...] to frequency. Performed By: #### 3 1397, 47161, 84290, 40054, 61835 #### [facility] [address] [facility] [place] [address], [place] DQB1*-1 EQUIVALENT 7 Normal [facility] Comment on above: Order Comment: Some of [...] to frequency. Performed By: #### 3 1397, 99326, 54278, 50470, 38465 #### [facility] [address] [place] [address], [place] DQB1*-2 EQUIVALENT 5 Normal [facility] Comment on above: Order Comment: Some of [...] to frequency. Performed By: #### 3 1397, 31644, 88173, 42680, 76279 #### [facility] [address] [place] [address], [facility] DRB1*-1 EQUIVALENT 10 Normal [facility] Comment on above: Order Comment: Some of [...] to frequency. Performed By: #### 3 1397, 80980, 43744, 60749, 33533 #### [facility] [address] [place] [address], [facility] DRB1*-2 EQUIVALENT 11 Normal [facility] Comment on above: Order Comment: Some of [...] to frequency. Performed By: #### 3 1397, 75675, 19749, 95799, 59255 #### [facility] [address] [place] [address], [place] DRB3*-1 EQUIVALENT 52 Normal [facility] Comment on above: Order [...] to frequency. Performed By: #### 3 1397, 01422, 15082, 30897, 99491 #### [facility] [address] [facility]. [address] METHOD Class II Typing by PCR-SSOP Luminex Normal [facility] Comment on above: Order Comment: Some of [...] to frequency. Performed By: #### 3 1397, 96209, 37833, 14872, 60954 #### [facility] [address] [facility] [place] [address], [facility] LIPID PROFILEon 02-12-2022 Cholesterol [Mass/Vol] 221 mg/dL High 120-200 [facility] Comment on above: Result Comment: CHOL ESTEROL REFERENCE RANGE: 20 YEARS AND OLDER CARDIOVASCULAR RISK Less than 200 mg/dl Low Risk 200 to 239 mg/dl Borderline Risk 240 mg/dl and greater High Risk Performed By: #### 3 1397, 64147, 83677, 30908, 81466 #### [facility] [address] [facility] [place] [address], [facility] Cholesterol in HDL [Mass/Vol] 40 mg/dL Normal 23-92 [facility] Comment on above: Result Comment: Slig ht variation in normal range could be due to gender and/or age. HDL CHOLESTEROL REFERENCE RANGE: 20 years and older Cardiovascular Risk > or =60 mg/dL Desirable 40 TO 59 mg/dL Low Risk <40 mg/dL High Risk Performed By: #### 3 1397, 45345, 44631, 42091, 35348 #### [facility] [address] [place] [address], [facility] Cholesterol in LDL [Mass/Vol] 101 mg/dL Normal 0-130 [facility] Comment on above: Result Comment: LDL IS A CALCULATION LDL IS ONLY VALID IF THE TRIG IS LESS THAN 400. Performed By: #### 3 1397, 66590, 08572, 23200, 47582 #### [facility] [address] [place] [address], [facility] Cholesterol.total/Chol esterol in HDL [Mass ratio] 5.5 {ratio} High .0-4.5 [facility] Comment on above: Performed By: #### 3 1397, 38079, 14452, 05759, 64878 #### [facility] [address] [place] [address], [facility] NON-HDL CHOLESTEROL 181 mg/dL Normal [facility] Comment on above: Performed By: #### 3 1397, 69672, 89456, 10626, 91799 #### [facility] [address] [place] [address], [facility] Triglyceride [Mass/Vol] 402 mg/dL High 40-149 [facility] Comment on above: Result Comment: TRIG LYCERIDE REFERENCE RANGE: 20 YEARS AND OLDER CARDIOVASCULAR RISK LESS THAN 150 mg/dl LOW RISK 150 TO 199 mg/dl BORDERLINE RISK 200 mg/dl AND GREATER HIGH RISK Performed By: #### 3 1397, 10511, 35794, 03760, 27285 #### [facility] [address] [place] [address], [place] VLDL CHOL 80 mg/dL High 0-40 [facility] Comment on above: Performed By: #### 3 1397, 49577, 73753, 80793, 66376 #### [facility] [address] [place] [address], [place] MUMPS IGG BLDon 02-12-2022 MUMPS IGG 5.46 Normal [facility] Comment on above: Result Comment: NORM AL RANGES: < OR = 0.9O NEGATIVE ; NO DETECTABLE IgG ANTIBODY TO MUMPS 0.91 - 1.09 EQUIVOCAL; REPEAT TESTING SUGGESTED > OR = 1.10 POSITIVE ; INDICATES PRESENCE OF DETECTABLE IgG ANTIBODY TO MUMPS Performed By: #### 3 1397, 45690, 55107, 48131, 43580 #### [facility] [address] RUBELLAon 02-12-2022 RUBELLA 4.79 Normal [facility] Comment on above: Result Comment: NORM AL RANGES: < OR = 0.9O NEGATIVE ; NO DETECTABLE IgG ANTIBODY TO RUBELLA 0.91 - 1.09 EQUIVOCAL; REPEAT TESTING SUGGESTED > OR = 1.10 POSITIVE ; INDICATES PRESENCE OF DETECTABLE IgG ANTIBODY TO RUBELLA VIRUS Performed By: #### 3 1397, 06085, 47874, 77436, 82658 #### [facility] [address] RUBEOLA MEASLES IGGon 2021 RUBEO IGG 6.43 Normal [facility] Comment on above: Result Comment: NORM AL RANGES: < OR = 0.9O NEGATIVE ; NO DETECTABLE IgG ANTIBODY TO RUBEOLA 0.91 - 1.09 EQUIVOCAL; REPEAT TESTING SUGGESTED > OR = 1.10 POSITIVE ; INDICATES PRESENCE OF DETECTABLE IgG ANTIBODY TO RUBEOLA Performed By: #### 3 1397, 94350, 73110, 13604, 28229 #### [facility] [address] SINGLE ANTIGEN CLASS 1on METHOD Class I Single Antigen Normal [facility] Comment on above: Order Comment: Some of [...] to frequency. Performed By: #### 3 1397, 73497, 84370, 62826, 67149 #### [facility] [address] [place] [address], [facility] SINGLE ANTIGEN CLASS 2on COMMENTS Normal [facility] Comment on above: Order Comment: Some of [...] watch list. Performed By: #### 3 1397, 10525, 15674, 88346, 03638 #### [facility] [address] [place] [address], [facility] Result Comment: Clas s I Antigen Microbeads Potential specificites added to the watch list. CPRA 0 Normal [facility] Comment on above: Order Comment: Some of [...] to frequency. Performed By: #### 3 1397, 81810, 78189, 88063, 46525 #### [facility] [address] [place] [address], [facility] METHOD Class II Single Antigen Normal [facility] Comment on above: Order Comment: Some of [...] to frequency. Performed By: #### 3 1397, 21542, 46508, 64578, 05054 #### [facility] [address] [place] [address], [facility] T PROT UR Yesy 02-12-2022 U TOTAL PROTEIN 44.0 mg/dL Normal [facility] Comment on above: Result Comment: Ther e are no established reference values for random urine specimens Performed By: #### 3 1397, 78987, 23727, 31078, 38928 #### [facility] [address] TB QUANTIFERON PLUSon 2021 MITOGEN MINUS NIL >10.00 Normal [facility] Comment on above: Performed By: #### 3 1592 #### [facility] [address] [facility]. [address] NIL 0.03 IU/mL Normal [facility] Comment on above: Performed By: #### 3 1592 #### [facility] [address] [facility]. [address] TB QUANTIFERON Negative Normal NEGATIVE [facility] Comment on above: Result Comment: Jadiel tiferon TB Gold Interpretation (IU/mL): NEGATIVE: M. tuberculosis infection not likely. Nil: <=8.0 TB1 Antigen minus Nil ([id number]): <0.35 OR >=0.35; and <25% of Nil value. TB2 Antigen minus Nil ([id number]-FIH): <0.35 OR >=0.35; and <25% of Nil [...] (https://www.cdc.gov/tb/publications/guidlines/default.htm Performed By: #### 3 1592 #### [facility] [address] [place] [address], [place] TB1 AG 0.05 IU/mL Normal [facility] Comment on above: Performed By: #### 3 1592 #### [facility] [address] [place] [address], [place] TB1 AG MINUS NIL 0.02 IU/mL Normal [facility] Comment on above: Performed By: #### 3 1592 #### [facility] [address] [place] [address], [place] TB2 AG 0.05 IU/mL Normal [facility] Comment on above: Performed By: #### 3 1592 #### [facility] [address] [place] [address], [place] TB2 AG MINUS NIL 0.02 IU/mL Normal [facility] Comment on above: Performed By: #### 3 1592 #### [facility] [address] [place] [address], [place] UA,MICROSCOPIC REQUIREDon Appearance (U) SL CLOUDY Abnormal CLEAR [facility] Comment on above: Performed By: #### 3 1397, 83117, 48287, 32832, 28545 #### [facility] [address] [place] [address], [place] Bilirubin Ql (U) Negative Normal NEGATIVE [facility] Comment on above: Performed By: #### 3 1397, 40674, 75792, 88560, 97627 #### [facility] [address] [place] [address], [place] Color (U) STRAW Abnormal YELLOW [facility] Comment on above: Performed By: #### 3 1397, 99917, 17668, 74131, 82687 #### [facility] [address] [place] [address], [place] EPIS MANY Abnormal FEW,OCC,NONE SEEN [facility] Comment on above: Performed By: #### 3 1397, 26436, 31259, 70217, 59754 #### [facility] [address] [place] [address], [facility] Glucose Ql (U) 50 mg/dL Abnormal NEGATIVE [facility] Comment on above: Performed By: #### 3 1397, 30869, 89590, 38668, 35593 #### [facility] [address] [place] [address], [facility] Hemoglobin Ql (U) Negative Normal NEGATIVE [facility] Comment on above: Performed By: #### 3 1397, 91868, 23670, 69879, 77573 #### [facility] [address] [place] [address], [facility] KETONE Negative Normal NEGATIVE [facility] Comment on above: Performed By: #### 3 1397, 29440, 67374, 26540, 70053 #### [facility] [address] [place] [address], [facility] LEUK MARYAN MODERATE Abnormal NEGATIVE [facility] Comment on above: Performed By: #### 3 1397, 39207, 85079, 59771, 47254 #### [facility] [address] [place] [address], [facility] Nitrite Ql (U) Negative Normal NEGATIVE [facility] Comment on above: Performed By: #### 3 1397, 52294, 13748, 73572, 93455 #### [facility] [address] [place] [address], [facility] pH (U) 7.0 [pH] Normal 5.0-8.0 [facility] Comment on above: Performed By: #### 3 1397, 82650, 94814, 19907, 43064 #### [facility] [address] [place] [address], [facility] Protein Ql (U) 30 mg/dL Abnormal NEGATIVE [facility] Comment on above: Performed By: #### 3 1397, 09962, 93772, 76196, 26629 #### [facility] [address] [facility] [place] [address], [facility] RBC NONE SEEN Normal NONE SEEN [facility] Comment on above: Performed By: #### 3 1397, 80214, 80565, 07963, 83643 #### [facility] [address] [facility]. [address] SPEC GRAV 1.009 Low 1.015-1.020 [facility] Comment on above: Performed By: #### 3 1397, 32080, 19690, 75820, 74189 #### [facility] [address] WBC UA 11-20 Abnormal NONE SEEN [facility] Comment on above: Performed By: #### 3 1397, 66944, 56271, 72278, 92620 #### [facility] [address] VARICELLA ZOSTER IGGon 02-12 VARICELLA IGG 3.29 Normal [facility] Comment on above: Result Comment: NORM AL RANGES: < OR = 0.9O NEGATIVE ; NO DETECTABLE IgG ANTIBODY TO VARICELLA-ZOSTER VIRUS 0.91 - 1.09 EQUIVOCAL; REPEAT TESTING SUGGESTED > OR = 1.10 POSITIVE ; INDICATES PRESENCE OF DETECTABLE IgG ANTIBODY TO VARICELLA-ZOSTER VIRUS Performed By: #### 3 1397, 85549, 26590, 01748, 38370 #### [facility] [address] PTH INTACTon 12-04-2021 PTH, Intact 165 pg/mL Critically high 15-65 [facility] Comment on above: Performed By: #### M G, URIC, RENAL #### [facility] [address] [address] [address] Hari Palmer FERRITINon 12-03-2021 Ferritin [Mass/Vol] 256.0 ng/mL Critically high 6.2-137.0 [facility] Comment on above: Performed By: #### M G, URIC, RENAL #### [facility] [address] [place] [address] Dr. Hari Palmer HEMOGRAM AND PLATELon 2021 Hematocrit (Bld) [Volume fraction] 33.7 % Critically low 36.0-48.0 [facility] Comment on above: Performed By: #### M G, URIC, RENAL #### [facility] [address] [place] [address] Dr. Hari Palmer Hemoglobin (Bld) [Mass/Vol] 10.9 g/dL Critically low 12.0-16.0 [facility] Comment on above: Performed By: #### M G, URIC, RENAL #### [facility] [address] [place] [address] Dr. Hari Palmer MCH (RBC) [Entitic mass] 31.4 pg Normal 26.7-34.0 [facility] Comment on above: Performed By: #### M G, URIC, RENAL #### [facility] [address] [place] [address] Dr. Hari Palmer MCHC (RBC) [Mass/Vol] 32.3 g/dL Normal 29.9-35.2 [facility] Comment on above: Performed By: #### M G, URIC, RENAL #### [facility] [address] [place] [address] Dr. Hari Palmer MCV (RBC) [Entitic vol] 97.1 fL Normal 81.0-99.0 [facility] Comment on above: Performed By: #### M G, URIC, RENAL #### [facility] [address] [place] [address] Dr. Hari Palmer PLT 314 103/ul Normal 150-450 [facility] Comment on above: Performed By: #### M G, URIC, RENAL #### [facility] [address] [place] [address] Dr. Hari Palmer RBC 3.47 106/ul Critically low 4.20-5.40 [facility] Comment on above: Performed By: #### M G, URIC, RENAL #### [facility] [address] [place] [address] Dr. Hari Palmer WBC 9.4 103/ul Normal 4.0-11.0 [facility] Comment on above: Performed By: #### M G, URIC, RENAL #### [facility] [address] [place] [address] Dr. Hari Palmer IRON AND TIBCon 12-03-2021 % SATURATION 19.0 % Normal [facility] Comment on above: Performed By: #### M G, URIC, RENAL #### [facility] [address] [place] [address] Dr. Hari Palmer Iron [Mass/Vol] 52.0 ug/dL Normal 37.0-170.0 [facility] Comment on above: Performed By: #### M G, URIC, RENAL #### [facility] [address] [place] [address] Dr. Hari Palmer TIBC DIRECT 273.0 ug/dL Normal 261.0-497.0 [facility] Comment on above: Performed By: #### M G, URIC, RENAL #### [facility] [address] [place] [address] Dr. Hari Palmer MAGNESIUMon 12-03-2021 Magnesium [Mass/Vol] 2.1 mg/dL Normal 1.6-2.3 [facility] Comment on above: Performed By: #### M G, URIC, RENAL #### [facility] [address] [place] [address] Dr. Hari Palmer RENAL FUNCTION PANELon 12-03 Albumin [Mass/Vol] 3.6 g/dL Normal 3.5-5.0 [facility] Comment on above: Performed By: #### M G, URIC, RENAL #### [facility] [address] [place] [address] Dr. Hari Palmer Calcium [Mass/Vol] 8.4 mg/dL Normal 8.4-10.2 [facility] Comment on above: Performed By: #### M G, URIC, RENAL #### [facility] [address] [place] [address] Dr. Hari Palmer Chloride [Moles/Vol] 101 mmol/L Normal 98-107 [facility] Comment on above: Performed By: #### M G, URIC, RENAL #### [facility] [address] [place] [address] Dr. Hari Palmer CO2 [Moles/Vol] 24.3 mmol/L Normal 22.0-30.0 [facility] Comment on above: Performed By: #### M G, URIC, RENAL #### [facility] [address] [place] [address] Dr. Hari Palmer Creatinine [Mass/Vol] 3.32 mg/dL Critically high 0.52-1.04 [facility] Comment on above: Performed By: #### M G, URIC, RENAL #### [facility] [address] [place] [address] Dr. Hari Palmer EGFR-AF AUSTRALIAN 18 mL/min/1.73m2 Critically low >=60 [facility] Comment on above: Performed By: #### M G, URIC, RENAL #### [facility] [address] [place] [address] Dr. Hari Palmer EGFR-NON AF AUSTRALIAN 15 mL/min/1.73m2 Critically low >=60 [facility] Comment on above: Performed By: #### M G, URIC, RENAL #### [facility] [address] [place] [address] Dr. Hari Palmer Glucose [Mass/Vol] 119 mg/dL Critically high 74-106 [facility] Comment on above: Performed By: #### M G, URIC, RENAL #### [facility] [address] [place] [address] Dr. Hari Palmer Phosphate [Mass/Vol] 4.7 mg/dL Critically high 2.5-4.5 [facility] Comment on above: Performed By: #### M G, URIC, RENAL #### [facility] [address] [place] [address] Dr. Hari Palmer Potassium [Moles/Vol] 4.0 mmol/L Normal 3.4-5.0 [facility] Comment on above: Performed By: #### M G, URIC, RENAL #### [facility] [address] [address] [address] Hari Palmer Sodium [Moles/Vol] 135 mmol/L Critically low 137-145 [facility] Comment on above: Performed By: #### M G, URIC, RENAL #### [facility] [address] [place] [address] Dr. Hari Palmer Urea nitrogen [Mass/Vol] 42.0 mg/dL Critically high 7.0-17.0 [facility] Comment on above: Performed By: #### M G, URIC, RENAL #### [facility] [address] [place] [address] Dr. Hari Palmer UA RANDOM W/MICROSCOPICon BACTERIA TRACE Abnormal NONE SEEN [facility] Comment on above: Performed By: #### U AMIC #### [facility] [address] [place] [address] Dr. Hari Palmer Bilirubin Ql (U) Negative Normal NEGATIVE [facility] Comment on above: Performed By: #### U AMIC #### [facility] [address] [place] [address] Dr. Hari Palmer CAST NONE SEEN Normal NONE SEEN [facility] Comment on above: Performed By: #### U AMIC #### [facility] [address] [place] [address] Dr. Hari Palmer Clarity (U) CLEAR Normal CLEAR [facility] Comment on above: Performed By: #### U AMIC #### [facility] [address] [place] [address] Dr. Hari Palmer Color (U) LT. YELLOW Normal YELLOW [facility] Comment on above: Performed By: #### U AMIC #### [facility] [address] [place] [address] Dr. Hari Palmer Crystals LM Nom (Urine sed) NONE SEEN Normal NONE SEEN [facility] Comment on above: Performed By: #### U AMIC #### [facility] [address] [place] [address] Dr. Hari Palmer Epithelial cells LM Ql (Urine sed) FEW Abnormal NONE SEEN /RARE [facility] Comment on above: Performed By: #### U AMIC #### [facility] [address] [address] [address] Hari Palmer Glucose Ql (U) 100 mg/dl Abnormal NEGATIVE [facility] Comment on above: Performed By: #### U AMIC #### [facility] [address] [place] [address] Dr. Hari Palmer Hemoglobin Ql (U) TRACE-INTACT Abnormal NEGATIVE [facility] Comment on above: Performed By: #### U AMIC #### [facility] [address] [address] [address] Hari Palmer Ketones Ql (U) Negative Normal NEGATIVE [facility] Comment on above: Performed By: #### U AMIC #### [facility] [address] [place] [address] Dr. Hari Palmer LEUKOCYTES SMALL Abnormal NEGATIVE [facility] Comment on above: Performed By: #### U AMIC #### [facility] [address] [address] [address] Hari Palmer MUCOUS NONE SEEN Normal NONE SEEN [facility] Comment on above: Performed By: #### U AMIC #### [facility] [address] [address] [address] Hari Palmer Nitrite Ql (U) Negative Normal NEGATIVE [facility] Comment on above: Performed By: #### U AMIC #### [facility] [address] [address] [address] Hari Palmer pH (U) 6.0 [pH] Normal 5-9 [facility] Comment on above: Performed By: #### U AMIC #### [facility] [address] [address] [address] Hari Palmer RBC 0-2 Normal 0-2 [facility] Comment on above: Performed By: #### U AMIC #### [facility] [address] [place] [address] Dr. Hari Palmer SPEC GRAVITY 1.010 Normal 1.005-<=1.02 5 [facility] Comment on above: Performed By: #### U AMIC #### [facility] [address] [address] [address] Hari Palmer UA PROTEIN Negative Normal NEGATIVE/ TRACE [facility] Comment on above: Performed By: #### U AMIC #### [facility] [address] [place] [address] Dr. Hari Palmer Urobilinogen Qn (U) 0.2 {Janice'U}/dL Normal 0.2 - 1. 0 [facility] Comment on above: Performed By: #### U AMIC #### [facility] [address] [place] [address] Dr. Hari Palmer WBC 5-10 Abnormal NONE SEEN [facility] Comment on above: Performed By: #### U AMIC #### [facility] [address] [place] [address] Dr. Hari Palmer URIC ACID SERUMon 12-03-2021 Urate [Mass/Vol] 4.6 mg/dL Normal 2.5-6.2 [facility] Comment on above: Performed By: #### M G, URIC, RENAL #### [facility] [address] [place] [address] Dr. Hari Palmer URINE T PROTEIN CREAT RATIOo n 12-03-2021 Protein (U) [Mass/Vol] 31.7 mg/dL Critically high <=12.0 [facility] Comment on above: Performed By: #### M G, URIC, RENAL #### [facility] [address] [place] [address] Dr. Hari Palmer UR PROT CREAT RAT 0.54 Normal [facility] Comment on above: Performed By: #### M G, URIC, RENAL #### [facility] [address] [place] [address] Dr. Hari Palmer URINE CREAT 59.03 mg/dL Normal 20.00-300.00 [facility] Comment on above: Performed By: #### M G, URIC, RENAL #### [facility] [address] [place] [address] Dr. Hari Palmer VITAMIN D 25 OHon 12-03-2021 VIT D 25-OH 38.1 ng/mL Normal [facility] Comment on above: Performed By: #### M G, URIC, RENAL #### [facility] [address] [place] [address] Dr. Hari Palmer VIT D RANGES SEE BELOW Normal [facility] Comment on above: Result Comment: <20 ng/mL Vit D deficient 20 - <30 ng/mL Vit D insufficient 30 - 100 ng/mL Vit D sufficient >100 ng/mL Potential Toxicity Performed By: #### M G, URIC, RENAL #### [facility] [address] [place] [address] Dr. Hari Palmer PTH INTACTon 09-03-2021 PTH, Intact 177 pg/mL Critically high 15-65 [facility] Comment on above: Performed By: #### P THINT #### [facility] [address] [place] [address] Dr. Hari Palmer CBC AUTO DIFFon 09-01-2021 BASO # 0.1 103/ul Normal 0.0-0.1 [facility] Comment on above: Performed By: #### M G, URIC, RENAL #### [facility] [address] [place] [address] Dr. Hari Palmer Basophils/100 WBC (Bld) 0.6 % Normal 0.2-2.0 [facility] Comment on above: Performed By: #### M G, URIC, RENAL #### [facility] [address] [place] [address] Dr. Hari Palmer EO # 0.3 103/ul Normal 0.0-0.7 [facility] Comment on above: Performed By: #### M G, URIC, RENAL #### [facility] [address] [place] [address] Dr. Hari Palmer Eosinophils/100 WBC (Bld) 3.5 % Normal 0.9-7.0 [facility] Comment on above: Performed By: #### M G, URIC, RENAL #### [facility] [address] [place] [address] Dr. Hari Palmer Erythrocyte distribution width (RBC) [Ratio] 13.8 % Normal 11.0-15.0 [facility] Comment on above: Performed By: #### M G, URIC, RENAL #### [facility] [address] [place] [address] Dr. Hari Palmer Hematocrit (Bld) [Volume fraction] 32.8 % Critically low 36.0-48.0 [facility] Comment on above: Performed By: #### M G, URIC, RENAL #### [facility] [address] [place] [address] Dr. Hari Palmer Hemoglobin (Bld) [Mass/Vol] 10.6 g/dL Critically low 12.0-16.0 [facility] Comment on above: Performed By: #### M G, URIC, RENAL #### [facility] [address] [place] [address] Dr. Hari Palmer IG # 0.14 10e3/ul Critically high 0.00-0.03 [facility] Comment on above: Performed By: #### M G, URIC, RENAL #### [facility] [address] [place] [address] Dr. Hari Palmer IG % 1.5 % Critically high 0.0-0.5 [facility] Comment on above: Performed By: #### M G, URIC, RENAL #### [facility] [address] [place] [address] Dr. Hari Palmer LYMPH # 1.8 103/ul Normal 1.2-3.8 [facility] Comment on above: Performed By: #### M G, URIC, RENAL #### [facility] [address] [place] [address] Dr. Hari Palmer Lymphocytes/100 WBC (Bld) 19.3 % Critically low 20.5-60.0 [facility] Comment on above: Performed By: #### M G, URIC, RENAL #### [facility] [address] [place] [address] Dr. Hari Palmer MANUAL DIFF REQ NO Normal [facility] Comment on above: Performed By: #### M G, URIC, RENAL #### [facility] [address] [place] [address] Dr. Hari Palmer MCH (RBC) [Entitic mass] 31.4 pg Normal 26.7-34.0 [facility] Comment on above: Performed By: #### M Edy, URIC, RENAL #### [facility] [address] [place] [address] Dr. Hari Palmer MCHC (RBC) [Mass/Vol] 32.3 g/dL Normal 29.9-35.2 [facility] Comment on above: Performed By: #### M G, URIC, RENAL #### [facility] [address] [place] [address] Dr. Hari Palmer MCV (RBC) [Entitic vol] 97.0 fL Normal 81.0-99.0 [facility] Comment on above: Performed By: #### M Edy URIC, RENAL #### [facility] [address] [place] [address] Dr. Hari Palmer MONO # 0.4 103/ul Normal 0.3-0.8 [facility] Comment on above: Performed By: #### M Edy URIC, RENAL #### [facility] [address] [place] [address] Dr. Hari Palmer Monocytes/100 WBC (Bld) 4.2 % Normal 1.7-12.0 [facility] Comment on above: Performed By: #### M Edy URIC, RENAL #### [facility] [address] [place] [address] Dr. Hari Palmer NEUT # 6.5 103/ul Normal 1.4-6.5 [facility] Comment on above: Performed By: #### M Edy, URIC, RENAL #### [facility] [address] [place] [address] Dr. Hari Palmer Neutrophils/100 WBC (Bld) 70.9 % Normal 43.0-75.0 [facility] Comment on above: Performed By: #### M Edy, URIC, RENAL #### [facility] [address] [place] [address] Dr. Hari Palmer Platelet mean volume (Bld) [Entitic vol] 9.0 fL Critically low 9.5-13.5 [facility] Comment on above: Performed By: #### M G, URIC, RENAL #### [facility] [address] [address] [address] Hari Palmer PLT 289 103/ul Normal 150-450 [facility] Comment on above: Performed By: #### M G, URIC, RENAL #### [facility] [address] [address] [address] Hari Palmer RBC 3.38 106/ul Critically low 4.20-5.40 [facility] Comment on above: Performed By: #### M G, URIC, RENAL #### [facility] [address] [address] [address] Hari Palmer WBC 9.1 103/ul Normal 4.0-11.0 [facility] Comment on above: Performed By: #### M G, URIC, RENAL #### [facility] [address] [place] [address] Dr. Hari Palmer FERRITINon 09-01-2021 Ferritin [Mass/Vol] 204.0 ng/mL Critically high 6.2-137.0 [facility] Comment on above: Performed By: #### M G, URIC, RENAL #### [facility] [address] [place] [address] Dr. Hari Palmer IRON AND TIBCon 09-01-2021 % SATURATION 28.4 % Normal [facility] Comment on above: Performed By: #### M G, URIC, RENAL #### [facility] [address] [place] [address] Dr. Hari Palmer Iron [Mass/Vol] 80.0 ug/dL Normal 37.0-170.0 [facility] Comment on above: Performed By: #### M G, URIC, RENAL #### [facility] [address] [place] [address] Dr. Hari Palmer TIBC DIRECT 282.0 ug/dL Normal 261.0-497.0 [facility] Comment on above: Performed By: #### M G, URIC, RENAL #### [facility] [address] [place] [address] Dr. Hari Palmer MAGNESIUMon 11-27-2021 Magnesium [Mass/Vol] 2.2 mg/dL Normal 1.6-2.3 [facility] Comment on above: Performed By: #### U AMIC #### [facility] [address] [place] [address] Dr. Hari Palmer RENAL FUNCTION PANELon 09-01 Albumin [Mass/Vol] 3.5 g/dL Normal 3.5-5.0 [facility] Comment on above: Performed By: #### M G, URIC, RENAL #### [facility] [address] [place] [address] Dr. Hari Palmer Calcium [Mass/Vol] 8.7 mg/dL Normal 8.4-10.2 [facility] Comment on above: Performed By: #### M G, URIC, RENAL #### [facility] [address] [place] [address] Dr. Hari Palmer Chloride [Moles/Vol] 105 mmol/L Normal 98-107 [facility] Comment on above: Performed By: #### M G, URIC, RENAL #### [facility] [address] [place] [address] Dr. Hari Palmer CO2 [Moles/Vol] 21.1 mmol/L Critically low 22.0-30.0 [facility] Comment on above: Performed By: #### M G, URIC, RENAL #### [facility] [address] [place] [address] Dr. Hari Palmer Creatinine [Mass/Vol] 3.63 mg/dL Critically high 0.52-1.04 [facility] Comment on above: Performed By: #### M G, URIC, RENAL #### [facility] [address] [place] [address] Dr. Hari Palmer EGFR-AF AUSTRALIAN 16 mL/min/1.73m2 Critically low >=60 [facility] Comment on above: Performed By: #### M G, URIC, RENAL #### [facility] [address] [place] [address] Dr. Hari Palmer EGFR-NON AF AUSTRALIAN 14 mL/min/1.73m2 Critically low >=60 [facility] Comment on above: Performed By: #### M G, URIC, RENAL #### [facility] [address] [address] [address] Hari Palmer Glucose [Mass/Vol] 115 mg/dL Critically high 74-106 [facility] Comment on above: Performed By: #### M G, URIC, RENAL #### [facility] [address] [place] [address] Dr. Hari Palmer Phosphate [Mass/Vol] 4.6 mg/dL Critically high 2.5-4.5 [facility] Comment on above: Performed By: #### M G, URIC, RENAL #### [facility] [address] [place] [address] Dr. Hari Palmer Potassium [Moles/Vol] 4.2 mmol/L Normal 3.4-5.0 [facility] Comment on above: Performed By: #### M G, URIC, RENAL #### [facility] [address] [place] [address] Dr. Hari Palmer Sodium [Moles/Vol] 138 mmol/L Normal 137-145 [facility] Comment on above: Performed By: #### M G, URIC, RENAL #### [facility] [address] [place] [address] Dr. Hari Palmer Urea nitrogen [Mass/Vol] 50.0 mg/dL Critically high 7.0-17.0 [facility] Comment on above: Performed By: #### M G, URIC, RENAL #### [facility] [address] [place] [address] Dr. Hari Palmer UA RANDOM W/MICROSCOPICon BACTERIA SMALL Abnormal NONE SEEN [facility] Comment on above: Performed By: #### U AMIC #### [facility] [address] [place] [address] Dr. Hari Palmer Bilirubin Ql (U) Negative Normal NEGATIVE [facility] Comment on above: Performed By: #### U AMIC #### [facility] [address] [place] [address] Dr. Hari Palmer CAST NONE SEEN Normal NONE SEEN [facility] Comment on above: Performed By: #### U AMIC #### [facility] [address] [place] [address] Dr. Hari Palmer Clarity (U) CLEAR Normal CLEAR [facility] Comment on above: Performed By: #### U AMIC #### [facility] [address] [place] [address] Dr. Hari Palmer Color (U) LT. YELLOW Normal YELLOW [facility] Comment on above: Performed By: #### U AMIC #### [facility] [address] [place] [address] Dr. Hari Palmer Crystals LM Nom (Urine sed) NONE SEEN Normal NONE SEEN [facility] Comment on above: Performed By: #### U AMIC #### [facility] [address] [place] [address] Dr. Hari Palmer Epithelial cells LM Ql (Urine sed) MODERATE Abnormal NONE SEEN /RARE [facility] Comment on above: Performed By: #### U AMIC #### [facility] [address] [place] [address] Dr. Hari Palmer Glucose Ql (U) Negative Normal NEGATIVE [facility] Comment on above: Performed By: #### U AMIC #### [facility] [address] [place] [address] Dr. Hari Palmer Hemoglobin Ql (U) TRACE-INTACT Abnormal NEGATIVE [facility] Comment on above: Performed By: #### U AMIC #### [facility] [address] [place] [address] Dr. Hari Palmer Ketones Ql (U) Negative Normal NEGATIVE [facility] Comment on above: Performed By: #### U AMIC #### [facility] [address] [place] [address] Dr. Hari Palmer LEUKOCYTES Negative Normal NEGATIVE [facility] Comment on above: Performed By: #### U AMIC #### [facility] [address] [place] [address] Dr. Hari Palmer MUCOUS NONE SEEN Normal NONE SEEN [facility] Comment on above: Performed By: #### U AMIC #### [facility] [address] [place] [address] Dr. Hari Palmer Nitrite Ql (U) Negative Normal NEGATIVE [facility] Comment on above: Performed By: #### U AMIC #### [facility] [address] [place] [address] Dr. Hari Palmer pH (U) 6.0 [pH] Normal 5-9 [facility] Comment on above: Performed By: #### U AMIC #### [facility] [address] [place] [address] Dr. Hari Palmer RBC 2-5 Abnormal 0-2 [facility] Comment on above: Performed By: #### U AMIC #### [facility] [address] [place] [address] Dr. Hari Palmer SPEC GRAVITY 1.010 Normal 1.005-<=1.02 5 [facility] Comment on above: Performed By: #### U AMIC #### [facility] [address] [place] [address] Dr. Hari Palmer UA PROTEIN Negative Normal NEGATIVE/ TRACE [facility] Comment on above: Performed By: #### U AMIC #### [facility] [address] [place] [address] Dr. Hari Palmer Urobilinogen Qn (U) 0.2 {Janice'U}/dL Normal 0.2 - 1. 0 [facility] Comment on above: Performed By: #### U AMIC #### [facility] [address] [place] [address] Dr. Hari Palmer WBC 2-5 Abnormal NONE SEEN [facility] Comment on above: Performed By: #### U AMIC #### [facility] [address] [place] [address] Dr. Hari Palmer URIC ACID SERUMon 09-01-2021 Urate [Mass/Vol] 4.9 mg/dL Normal 2.5-6.2 [facility] Comment on above: Performed By: #### U AMIC #### [facility] [address] [place] [address] Dr. Hari Palmer URINE T PROTEIN CREAT RATIOo n 09-01-2021 Protein (U) [Mass/Vol] 22.2 mg/dL Critically high <=12.0 [facility] Comment on above: Performed By: #### M G, URIC, RENAL #### [facility] [address] [place] [address] Dr. Hari Palmer UR PROT CREAT RAT 0.47 Normal [facility] Comment on above: Performed By: #### M G, URIC, RENAL #### [facility] [address] [place] [address] Dr. Hari Palmer URINE CREAT 46.89 mg/dL Normal 20.00-300.00 [facility] Comment on above: Performed By: #### M G, URIC, RENAL #### [facility] [address] [place] [address] Dr. Hari Palmer VITAMIN D 25 OHon 09-01-2021 VIT D 25-OH 40.5 ng/mL Normal [facility] Comment on above: Performed By: #### M G, URIC, RENAL #### [facility] [address] [place] [address] Dr. Hari Palmer VIT D RANGES SEE BELOW Normal [facility] Comment on above: Result Comment: <20 ng/mL Vit D deficient 20 - <30 ng/mL Vit D insufficient 30 - 100 ng/mL Vit D sufficient >100 ng/mL Potential Toxicity Performed By: #### M G, URIC, RENAL #### [facility] [address] [place] [address] Dr. Hari Palmer CNOVon 03-30-2021 CNOV Office Visit (NEPHMN ) ----- MANDEEP PURI ([id number]) 1975 F Date Time Provider Department 03/30/21 9:20 AM PERRI BARRETT NEPHCHET During your visit today, we recorded the following information about you: Temperature Pulse Blood pressure Weight 98.2 degrees 75/minute 122/77 93 kg Height 1.549 m Perri Barrett MD 03/30/2021 10:25 AM Signed Mrs. 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 (more content not included)... Normal [facility] Urinalysison 03-30-2021 Bilirubin, Urine Negative Normal Negative [facility] [place] [facility] Comment on above: Performed By: #### U A #### [facility] [address] [address] Clarity (U) Clear Normal Clear [facility] Comment on above: Performed By: #### U A #### [facility] [address] [place], [place] [address] Color (U) Colorless Critically abnormal Yellow [facility] Comment on above: Performed By: #### U A #### [facility] [address] [place], [place] [address] Comments SEE COMMENT Normal [facility] Comment on above: Result Comment: Micr oscopic not warranted Performed By: #### U A #### [facility] [address] [place], [place] [address] Glucose Ql (U) Trace Critically abnormal Negative [facility] Comment on above: Performed By: #### U A #### [facility] [address] [address] Hemoglobin/Blood,Ur Negative Normal Negative [facility] Comment on above: Performed By: #### U A #### [address] [address] Ketones Ql (U) Negative Normal Negative [facility] Comment on above: Performed By: #### U A #### [address] [address] Leukest Negative Normal Negative [facility] Comment on above: Performed By: #### U A #### [address] [address] Nitrite Ql (U) Negative Normal Negative [facility] Comment on above: Performed By: #### U A #### [address] [address] pH (U) 6.5 [pH] Normal 5.0-8.0 [facility] Comment on above: Performed By: #### U A #### [address] [address] Protein, Urine Negative Normal Negative [facility] Comment on above: Performed By: #### U A #### [address] [id number] Specific [place], Ur 1.008 Normal 1.005-1.030 [facility] [place] [facility] Comment on above: Performed By: #### U A #### [address] [place], [place] [address] Urine Codi Comment SEE COMMENT Normal [facility] Comment on above: Result Comment: N/A Performed By: #### U A #### [address] [id number] Urobilinogen (U) [Mass/Vol] Negative Normal Negative [facility] Comment on above: Performed By: #### U A #### [facility] [address] [place], [place] [address] Coding Summary.on 04-21-2020 Coding Summary. CODING DATE: 020 FINAL [facility] STATUS: Home (Routine DC) PAYOR: Medical [place] ADMIT DX: REASON FOR VISIT DX: [phone] [...] Date Saved: 04/21/2020 05:17 pm Normal [facility] Physician Orderon 04-21-2020 Physician Order [id number] Normal [facility] Marci 04-12-2020 ALT [Catalytic activity/Vol] 14 U/L Normal 7 - 45 [facility] Comment on above: Result Comment: Kelsea ents treated with Sulfasalazine may generate falsely decreased results for ALT. Performed By: #### A LT #### [facility] [address] [place] [address] Ronald 04-12-2020 AST [Catalytic activity/Vol] 16 U/L Normal 9 - 39 [facility] Comment on above: Performed By: #### A ST #### [facility] [address] [place] [address] CREATININEon 04-12-2020 Creatinine [Mass/Vol] 2.83 mg/dL High 0.50 - 1.05 [facility] Comment on above: Performed By: #### C REAT #### [facility] [address] [place] [address] Creatinine [Mass/Vol] 18 mL/min/1.73m2 Abnormal >60 [facility] Comment on above: Performed By: #### C REAT #### [facility] [address] [place] [address] Creatinine [Mass/Vol] 22 mL/min/1.73m2 Abnormal >60 [facility] Comment on above: Result Comment: CALC ULATIONS OF ESTIMATED GFR ARE PERFORMED USING THE MDRD STUDY EQUATION FOR THE IDMS-TRACEABLE CREATININE METHODS. CLIN CHEM 2007;53:766-72 Performed By: #### C REAT #### [facility] [address] [place] [address] URIC ACIDon 04-12-2020 Urate [Mass/Vol] 5.2 mg/dL Normal 2.3 - 6.7 [facility] Comment on above: Result Comment: Beti puncture immediately after or during the administration of Metamizole may lead to falsely low results. Testing should be performed immediately prior to Metamizole dosing. Performed By: #### U DICK #### [facility] [address] [place] [address] URIC ACIDon 02-11-2020 Urate [Mass/Vol] 8.2 mg/dL High 2.3 - 6.7 [facility] Comment on above: Result Comment: Beti puncture immediately after or during the administration of Metamizole may lead to falsely low results. Testing should be performed immediately prior to Metamizole dosing. Performed By: #### U DICK #### [facility] [address] [place] [address] Cult,Urineon 08-04-2019 Cult,Urine Specimen Description .CLEAN CATCH URINE Special Requests NOT REPORTED Culture ESCHERICHIA COLI >[id number] CFU/ML Report Status FINAL 08/04/2019 SUSCEPTIBILITY Organism [...] Trimethoprim/Sulfa <=20 SUSCEPTIBLE Piperacillin/Tazobactam <=4 SUSCEPTIBLE Normal [facility] Comment on above: Performed By: #### D CITLALY, LIP, CMPX, TROPI, BNP, CDP, PT #### [facility] [address] [address] Oil Rag Washer: Sami Dominguez MD Brain Natri. Peptideon 08-02 Natriuretic peptide B (Bld) [Mass/Vol] 152 pg/mL Normal <300 [facility] Comment on above: Result Comment: Pro- BNP results cannot be compared to BNP results. Performed By: #### D CITLALY, LIP, CMPX, TROPI, BNP, CDP, PT #### [facility] [address] [address] Oil Rag Washer: Sami Dominguez MD Natriuretic peptide B (Bld) [Mass/Vol] Pro-BNP Reference Range: Normal [facility] Comment on above: Result Comment: Rule Out: <300 Parra Zone: Age <50 300-450 Age 50-75 300-900 Age >75 300-1800 Usually represents mild to moderate HF but other cardiopulmonary causes cannot be ruled out. Rule In: Age <50 >450 Age 50-75 >900 Age >75 >1800 Performed By: #### D CITLALY, LIP, CMPX, TROPI, BNP, CDP, PT #### [facility] [address] [place] [address] [place] [address] Oil Rag Washer: Sami Dominguez MD Brain Natriuretic Peptideon 08-02-2019 Natriuretic peptide B (Bld) [Mass/Vol] 152 pg/mL <300 [facility] [place] Comment on above: Pro-BNP results eric ot be compared to BNP results. Natriuretic peptide B (Bld) [Mass/Vol] Pro-BNP Reference Range: [facility] [place] Comment on above: Rule Out: <300 Parra Zone: Age <50 300-450 Age 50-75 300-900 Age >75 300-1800 Usually represents mild to moderate HF but other cardiopulmonary causes cannot be ruled out. Rule In: Age <50 >450 Age 50-75 >900 Age >75 >1800 CBC Auto Differentialon 07-07 Basophils (Bld) [#/Vol] 0.00 10*3/uL [place] Basophils/100 WBC (Bld) 0 % 0 - 2 % [place] Differential Type NOT REPORTED [place] Eosinophils (Bld) [#/Vol] 0.08 10*3/uL [place] Eosinophils/100 WBC (Bld) 1 % 1 - 4 % [place] Erythrocyte distribution width (RBC) [Ratio] 13.2 % 11.8 - 14.4 % [place] Hematocrit (Bld) [Volume fraction] 33.7 % Low 36.3 - 47.1 % [place] Hemoglobin (Bld) [Mass/Vol] 10.7 g/dL Low 11.9 - 15.1 g/dL [place] Immature granulocytes (Bld) [#/Vol] 0 % 0 [place] Immature granulocytes (Bld) [#/Vol] 0.00 10*3/uL [place] Interpretation and review of laboratory results Abnormal [place] Lymphocytes (Bld) [#/Vol] 0.90 10*3/uL Low [place] Lymphocytes/100 WBC (Bld) 12 % Low 24 - 43 % [place] MCH (RBC) [Entitic mass] 30.2 pg 25.2 - 33.5 pg [place] MCHC (RBC) [Mass/Vol] 31.8 g/dL 28.4 - 34.8 g/dL [place] MCV (RBC) [Entitic vol] 95.2 fL 82.6 - 102.9 fL [place] Monocytes (Bld) [#/Vol] 0.00 10*3/uL Low [place] Monocytes/100 WBC (Bld) 0 % Low 3 - 12 % [place] Morphology Geovany (Bld) [Interp] Normal [place] Platelet mean volume (Bld) [Entitic vol] 8.6 fL 8.1 - 13.5 fL [place] Platelets (Bld) [#/Vol] NOT REPORTED [place] Platelets (Bld) [#/Vol] 335 10*3/uL [place] RBC (Bld) [#/Vol] 3.54 10*6/uL Low 3.95 - 5.1 1 m/uL [place] RBC morphology finding Nom (Bld) NOT REPORTED [place] Segmented neutrophils/100 WBC (Bld) 87 % High 36 - 65 % [place] Segs Absolute 6.52 [place] WBC (Bld) [#/Vol] 7.5 10*3/uL [place] WBC (Bld) [#/Vol] 0.0 10*3/uL 0.0 per 10 0 WBC [place] WBC Morphology NOT REPORTED [place] CBC with Diffon 08-02-2019 Abs. Basophil 0.00 k/uL Normal 0.0-0.2 [facility] Comment on above: Performed By: #### D CITLALY, LIP, CMPX, TROPI, BNP, CDP, PT #### [address] [place] [address] Oil Rag Washer: Sami Dominguez MD Abs.Imm.Granulocyte 0.00 k/uL Normal 0.00-0.30 [facility] Comment on above: Performed By: #### D CITLALY, LIP, CMPX, TROPI, BNP, CDP, PT #### [address] [place] [address] Oil Rag Washer: Sami Dominguez MD Abs.Neutrophil (Seg) 6.52 k/uL Normal 1.50-8.10 [facility] Comment on above: Performed By: #### D CITLALY, LIP, CMPX, TROPI, BNP, CDP, PT #### [address] [place] [address] Oil Rag Washer: Sami Dominguez MD Basophils/100 WBC (Bld) 0 % Normal 0-2 [facility] Comment on above: Performed By: #### D CITLALY, LIP, CMPX, TROPI, BNP, CDP, PT #### [facility] [address] [place] [id number] Oil [employer] Washer: Sami Dominguez MD Eosinophils (Bld) [#/Vol] 0.08 10*3/uL Normal 0.00-0.44 [facility] Comment on above: Performed By: #### D CITLALY, LIP, CMPX, TROPI, BNP, CDP, PT #### [facility] [address] [place] [id number] Oil Rag Washer: Sami Dominguez MD Eosinophils/100 WBC (Bld) 1 % Normal 1-4 [facility] Comment on above: Performed By: #### D CITLALY, LIP, CMPX, TROPI, BNP, CDP, PT #### [address] [place], [place] [address] Oil Rag Washer: Sami Dominguez MD Immature granulocytes (Bld) [#/Vol] 0 % Normal 0 [facility] Comment on above: Performed By: #### D CITLALY, LIP, CMPX, TROPI, BNP, CDP, PT #### [address] [place] [id number] Oil Rag Washer: Sami Doimnguez MD Lymphocytes (Bld) [#/Vol] 0.90 10*3/uL Low 1.10-3.70 [facility] Comment on above: Performed By: #### D CITLALY, LIP, CMPX, TROPI, BNP, CDP, PT #### [address] [place], [id number] Oil Rag Washer: Sami Dominguez MD Lymphocytes/100 WBC (Bld) 12 % Low 24-43 [facility] Comment on above: Performed By: #### D CITLALY, LIP, CMPX, TROPI, BNP, CDP, PT #### [facility] [address] [place], [place] [phone] Oil Rag Washer: Sami Dominguez MD Monocytes (Bld) [#/Vol] 0.00 10*3/uL Low 0.10-1.20 [facility] Comment on above: Performed By: #### D CITLALY, LIP, CMPX, TROPI, BNP, CDP, PT #### [facility] [address] [place], [place] [phone] [employer] Washer: Sami Dominguez MD Monocytes/100 WBC (Bld) 0 % Low 3-12 [facility] Comment on above: Performed By: #### D CITLALY, LIP, CMPX, TROPI, BNP, CDP, PT #### [facility] [address] [place], [place] [phone] Oil Rag Washer: Sami oDminguez MD Morphology Geovany (Bld) [Interp] Normal Normal [facility] Comment on above: Performed By: #### D CITLALY, LIP, CMPX, TROPI, BNP, CDP, PT #### [address] [place], [place] [phone] Oil [employer] Washer: Sami Dominguez MD Neutrophil (Seg) 87 % High 36-65 [facility] Comment on above: Performed By: #### D CITLALY, LIP, CMPX, TROPI, BNP, CDP, PT #### [facility] [address] [place], [place] [phone] Oil [employer] Washer: Sami Dominguez MD Erythrocyte distribution width (RBC) [Ratio] 13.2 % Normal 11.8-14.4 [facility] Comment on above: Performed By: #### D CITLALY, LIP, CMPX, TROPI, BNP, CDP, PT #### [facility] [address] [place] [phone] Oil [employer] Washer: Sami Dominguez MD Hematocrit (Bld) [Volume fraction] 33.7 % Low 36.3-47.1 [facility] Comment on above: Performed By: #### D CITLALY, LIP, CMPX, TROPI, BNP, CDP, PT #### [facility] [address] [place], [id number] Oil Rag Washer: Sami Dominguez MD Hemoglobin (Bld) [Mass/Vol] 10.7 g/dL Low 11.9-15.1 [facility] Comment on above: Performed By: #### D CITLALY, LIP, CMPX, TROPI, BNP, CDP, PT #### [facility] [address] [place], [id number] Oil Rag Washer: Sami Dominguez MD MCH (RBC) [Entitic mass] 30.2 pg Normal 25.2-33.5 [facility] Comment on above: Performed By: #### D CITLALY, LIP, CMPX, TROPI, BNP, CDP, PT #### [address] [place], [id number] Oil Rag Washer: Sami Dominguez MD MCHC (RBC) [Mass/Vol] 31.8 g/dL Normal 28.4-34.8 [facility] Comment on above: Performed By: #### D CITLALY, LIP, CMPX, TROPI, BNP, CDP, PT #### [address] [place] [address] Oil Rag Washer: Sami Dominguez MD MCV (RBC) [Entitic vol] 95.2 fL Normal 82.6-102.9 [facility] Comment on above: Performed By: #### D CITLALY, LIP, CMPX, TROPI, BNP, CDP, PT #### [facility] [address] [place] [address] Oil Rag Washer: Sami Dominguez MD NRBC Automated 0.0 per 100 WBC Normal 0.0 [facility] Comment on above: Performed By: #### D CITLALY, LIP, CMPX, TROPI, BNP, CDP, PT #### [address] [place], [place] [phone] Oil Rag Washer: Sami Dominguez MD Platelet mean volume (Bld) [Entitic vol] 8.6 fL Normal 8.1-13.5 [facility] Comment on above: Performed By: #### D CITLALY, LIP, CMPX, TROPI, BNP, CDP, PT #### [facility] [address] [place], [id number] Oil [employer] Washer: Sami Dominguez MD Platelets (Bld) [#/Vol] 335 10*3/uL Normal 138-453 [facility] Comment on above: Performed By: #### D CITLALY, LIP, CMPX, TROPI, BNP, CDP, PT #### [facility] [address] [place], [id number] Oil Rag Washer: Sami Dominguez MD RBC (Bld) [#/Vol] 3.54 10*6/uL Low 3.95-5.11 [facility] Comment on above: Performed By: #### D CITLALY, LIP, CMPX, TROPI, BNP, CDP, PT #### [facility] [address] [place], [place] [address] Oil Rag Washer: Sami Dominguez MD WBC (Bld) [#/Vol] 7.5 10*3/uL Normal 3.5-11.3 [facility] Comment on above: Performed By: #### D CITLALY, LIP, CMPX, TROPI, BNP, CDP, PT #### [facility] [address] [place], [id number] ( Oil Rag Washer: Sami Dominguez MD Auto Diff Performed NOT REPORTED Normal [facility] Comment on above: Performed By: #### D CITLALY, LIP, CMPX, TROPI, BNP, CDP, PT #### [facility] [address] [place] [address] Oil Rag Washer: Sami Dominguez MD Platelets (Bld) [#/Vol] NOT REPORTED Normal [facility] Comment on above: Performed By: #### D CITLALY, LIP, CMPX, TROPI, BNP, CDP, PT #### [facility] [address] [place] [address] Oil Rag Washer: Sami Dominguez MD RBC morphology finding Nom (Bld) NOT REPORTED Normal [facility] Comment on above: Performed By: #### D CITLALY, LIP, CMPX, TROPI, BNP, CDP, PT #### [facility] [address] [place] [address] Oil Rag Washer: Sami Dominguez MD WBC Morphology NOT REPORTED Normal [facility] Comment on above: Performed By: #### D CITLALY, LIP, CMPX, TROPI, BNP, CDP, PT #### [facility] [address] [place] [address] Oil Rag Washer: Sami Dominguez MD CTA CHEST ABDOMEN PELVIS [...] Yunier Yang MD 08/02/19 Final result Normal [facility] [place], [facility] Incoming Radiant Results From [employer] - 08/02/2019 1:21 PM EDT EXAMINATION: CTA [...] recommended. Reference: J Am Danika Radiol 2013;10:675-681 [place], [place] EXAMINATION: CTA OF THE CHEST, ABDOMEN [...] and caliber without aneurysmal dilatation or dissection. [place], [place] No evidence for aneurysmal dilatation or dissection of the aorta or its branches. Findings most compatible with polycystic kidney disease. Subtle inflammation adjacent to the descending colon is suggestive of subtle colitis. No perforation or abscess formation. No free intraperitoneal air or fluid. 4.1 cm benign appearing ovarian cyst No follow-up imaging is recommended. Reference: J Am Danika Radiol 2013;10:675-681 [place], [place] Comp Metabolic Pr/rfx MGon 1 (cont.) Normal [facility] Comment on above: Result Comment: Aver age GFR for 40-49 years old: 99 mL/min/1.73sq m Chronic Kidney Disease: <60 mL/min/1.73sq m Kidney failure: <15 mL/min/1.73sq m eGFR calculated using average adult body mass. Additional eGFR calculator available at: http://www.GTx.eeGeo/multiple_crcl_2012.htm Performed By: #### D CITLALY, LIP, CMPX, TROPI, BNP, CDP, PT #### [facility] [address] [place] [address] Oil Rag Washer: Sami Dominguez MD Albumin [Mass/Vol] 4.4 g/dL Normal 3.5-5.2 [facility] Comment on above: Performed By: #### D CITLALY, LIP, CMPX, TROPI, BNP, CDP, PT #### [facility] [address] [place] [address] Oil Rag Washer: Sami Dominguez MD Albumin/Globulin [Mass ratio] 1.0 {ratio} Normal 1.0-2.5 [facility] Comment on above: Performed By: #### D CITLALY, LIP, CMPX, TROPI, BNP, CDP, PT #### [facility] [address] [place] [address] Oil Rag Washer: Sami Dominguez MD Alkaline Phos 98 U/L Normal 35-104 [facility] Comment on above: Performed By: #### D CITLALY, LIP, CMPX, TROPI, BNP, CDP, PT #### [facility] [address] [place] [address] Oil Rag Washer: Sami Dominguez MD ALT [Catalytic activity/Vol] 16 U/L Normal 5-33 [facility] Comment on above: Performed By: #### D CITLALY, LIP, CMPX, TROPI, BNP, CDP, PT #### [facility] [address] [place] [address] Oil Rag Washer: Sami Dominguez MD Anion gap [Moles/Vol] 18 mmol/L High 9-17 [facility] Comment on above: Performed By: #### D CITLALY, LIP, CMPX, TROPI, BNP, CDP, PT #### [address] [place] [address] Oil Rag Washer: Sami Dominguez MD AST [Catalytic activity/Vol] 18 U/L Normal <32 [facility] Comment on above: Performed By: #### D CITLALY, LIP, CMPX, TROPI, BNP, CDP, PT #### [facility] [address] [place] [address] Oil Rag Washer: Sami Dominguez MD Bilirubin Ql (U) 0.31 mg/dL Normal 0.3-1.2 [facility] Comment on above: Performed By: #### D CITLALY, LIP, CMPX, TROPI, BNP, CDP, PT #### [facility] [address] [place] [address] Oil Rag Washer: Sami Dominguez MD BUN/CRE Ratio 13 Normal 9-20 [facility] Comment on above: Performed By: #### D CITLALY, LIP, CMPX, TROPI, BNP, CDP, PT #### [facility] [address] [place] [address] Oil Rag Washer: Sami Dominguez MD Calcium [Mass/Vol] 9.7 mg/dL Normal 8.6-10.4 [facility] Comment on above: Performed By: #### D CITLALY, LIP, CMPX, TROPI, BNP, CDP, PT #### [facility] [address] [place] [address] Oil Rag Washer: Sami Dominguez MD Chloride [Moles/Vol] 95 mmol/L Low 98-107 [facility] Comment on above: Performed By: #### D CITLALY, LIP, CMPX, TROPI, BNP, CDP, PT #### [facility] [address] [place], [place] [phone] Oil Rag Washer: Sami Dominguez MD CO2 [Moles/Vol] 18 mmol/L Low 20-31 [facility] Comment on above: Performed By: #### D CITLALY, LIP, CMPX, TROPI, BNP, CDP, PT #### [facility] [address] [place] [address] Oil Rag Washer: Sami Dominguez MD Creatinine [Mass/Vol] 3.07 mg/dL High 0.50-0.90 [facility] Comment on above: Performed By: #### D CITLALY, LIP, CMPX, TROPI, BNP, CDP, PT #### [facility] [address] [place] [address] Oil Rag Washer: Sami Dominguez MD GFR, Amer 20 mL/min Low >60 [facility] Comment on above: Performed By: #### D CITLALY, LIP, CMPX, TROPI, BNP, CDP, PT #### [facility] [address] [place] [address] Oil Rag Washer: Sami Dominguez MD GFR,non Amer 17 mL/min Low >60 [facility] Comment on above: Performed By: #### D CITLALY, LIP, CMPX, TROPI, BNP, CDP, PT #### [facility] [address] [place], [place] [id number] Oil Rag Washer: Sami Dominguez MD Glucose [Mass/Vol] 89 mg/dL Normal 70-99 [facility] Comment on above: Performed By: #### D CITLALY, LIP, CMPX, TROPI, BNP, CDP, PT #### [facility] [address] [place] [address] Oil Rag Washer: Sami Dominguez MD Potassium [Moles/Vol] 3.9 mmol/L Normal 3.7-5.3 [facility] Comment on above: Performed By: #### D CITLALY, LIP, CMPX, TROPI, BNP, CDP, PT #### [facility] [address] [place], [place] [phone] Oil [employer] Washer: Sami Dominguez MD Protein [Mass/Vol] 8.8 g/dL High 6.4-8.3 [facility] Comment on above: Performed By: #### D CITLALY, LIP, CMPX, TROPI, BNP, CDP, PT #### [facility] [address] [place] [address] Oil [employer] Washer: Sami Dominguez MD Sodium [Moles/Vol] 131 mmol/L Low 135-144 [facility] Comment on above: Performed By: #### D CITLALY, LIP, CMPX, TROPI, BNP, CDP, PT #### [facility] [address] [place] [address] Oil Rag Washer: Sami Dominguez MD Staging: Normal [facility] Comment on above: Result Comment: Stag e 1: Some kidney damage normal GFR Stage 2: Mild kidney damage GFR 60-89 Stage 3: Moderate kidney damage GFR 30-59 Stage 4: Severe kidney damage GFR 15-29 Stage 5: Severe kidney damage GFR <15 ESRD - chronic treatment by dialysis or transplant Performed By: #### D CITLALY, LIP, CMPX, TROPI, BNP, CDP, PT #### [facility] [address] [address] Oil Rag Washer: Sami Dominguez MD Urea nitrogen [Mass/Vol] 39 mg/dL High 6-20 [facility] Comment on above: Performed By: #### D CITLALY, LIP, CMPX, TROPI, BNP, CDP, PT #### [facility] [address] [place] [address] Oil Rag Washer: Sami Dominguez MD Comprehensive Metabolic Pane l w/ Reflex to on 08-02-2019 Albumin [Mass/Vol] 4.4 g/dL 3.5 - 5.2 g/dL [place] Albumin/Globulin [Mass ratio] 1.0 {ratio} [place] ALP [Catalytic activity/Vol] 98 U/L 35 - 104 U/L [place] ALT [Catalytic activity/Vol] 16 U/L 5 - 33 U/L [place] Anion gap [Moles/Vol] 18 mmol/L High 9 - 17 mmol/L [place] AST [Catalytic activity/Vol] 18 U/L <32 [place] Bilirubin Ql (U) 0.31 mg/dL 0.3 - 1.2 mg/dL [place] Bun/Cre Ratio 13 [place] Calcium [Mass/Vol] 9.7 mg/dL 8.6 - 10. 4 mg/dL [place] Chloride [Moles/Vol] 95 mmol/L Low 98 - 10 7 mmol/L [place] CO2 [Moles/Vol] 18 mmol/L Low 20 - 31 mmol/L [place] Creatinine [Mass/Vol] 3.07 mg/dL High 0.5 - 0.9 mg/dL [place] GFR 20 mL/min Low >60 [place] GFR Non- 17 mL/min Low >60 [place] Glucose [Mass/Vol] 89 mg/dL 70 - 99 mg/dL [place] Interpretation and review of laboratory results Abnormal [place] Potassium [Moles/Vol] 3.9 mmol/L 3.7 - 5.3 mmol/L [place] Protein [Mass/Vol] 8.8 g/dL High 6.4 - 8.3 g/dL [place] Sodium [Moles/Vol] 131 mmol/L Low 135 - 144 mmol/L [place] Urea nitrogen [Mass/Vol] 39 mg/dL High 6 - 20 mg/dL [place] D-Dimer Teston 08-02-2019 D-Dimer Test 1.15 mg/L FEU High 0.19-0.50 [facility] Comment on above: Result Comment: Elevated levels [...] CMPX, TROPI, BNP, CDP, PT #### [facility] [address] [place] [address] Oil Rag Washer: Sami Dominguez MD D-Dimer, Quantitativeon 07-07 D-Dimer, Quant 1.15 High [place] Comment on above: Elevated levels of [...] Interpretation and review of laboratory results Abnormal [place] Lactate, Sepsison 08-02-2019 Lactic Acid, Sepsis 3.6 mmol/L High 0.5-1.9 [facility] Comment on above: Performed By: #### L ACDS #### [facility] [address] [address] Oil Rag Washer: Sami Dominguez MD Lactic Acid,Sep Wbld NOT REPORTED Normal 0.5-1.9 [facility] Comment on above: Performed By: #### L ACDS #### [facility] [address] [place] [id number] Oil Rag Washer: Sami Dominguez MD Interpretation and review of laboratory results Abnormal [place] Lactic Acid, Sepsis 3.6 mmol/L High 0.5 - 1. 9 mmol/L [place] Lactic Acid, Sepsis, Whole Blood NOT REPORTED 0.5 - 1.9 mmol/L [place] Lactic Acidon 08-02-2019 Lactate [Moles/Vol] 1.0 mmol/L Normal 0.5-2.2 [facility] Comment on above: Performed By: #### D CITLALY, LIP, CMPX, TROPI, BNP, CDP, PT #### [facility] [address] [address] Oil Rag Washer: Sami Dominguez MD Lactate [Moles/Vol] NOT REPORTED Normal 0.7-2.1 [facility] Comment on above: Performed By: #### D CITLALY, LIP, CMPX, TROPI, BNP, CDP, PT #### [facility] [address] [place] [address] Oil Rag Washer: Sami Dominguez MD Lactic Acid, Plasmaon 2018 Lactate [Moles/Vol] 1 mmol/L 0.5 - 2. 2 mmol/L [place] Lactic Acid, Whole Blood NOT REPORTED 0.7 - 2.1 mmol/L [place] Lipaseon 08-02-2019 Lipase [Catalytic activity/Vol] 38 U/L Normal 13-60 [facility] Comment on above: Performed By: #### D CITLALY, LIP, CMPX, TROPI, BNP, CDP, PT #### [facility] [address] [place] [address] Oil Rag Washer: Sami Dominguez MD Lipase [Catalytic activity/Vol] 38 U/L 13 - 60 U/L [place] Metabolic Panelon 08-02-2019 GFR/1.73 sq M predicted among non-blacks MDRD (S/P/Bld) [Vol rate/Area] [place] Comment on above: Stage 1: Some [...] body mass. Additional eGFR calculator available at: http://www.Siriona/multiple_crcl_2012.htm Microscopic Urinalysison Amorphous, UA NOT REPORTED None [place] Bacteria, UA 1+ Abnormal None [place] Casts UA NOT REPORTED /LPF [place] Crystals UA NOT REPORTED None /HPF [place] Epithelial Cells UA 2 TO 5 [place] Interpretation and review of laboratory results Abnormal [place] Mucus, UA NOT REPORTED None [place] Other Observations UA NOT REPORTED NOT REQ. M [place], [place] RBC (U) [#/Vol] None [place] Renal Epithelial, Urine NOT REPORTED 0 /HPF [place] Trichomonas, UA NOT REPORTED None [place] WBC, UA 50 TO 100 [place] Yeast, UA NOT REPORTED [place] PTon 08-02-2019 INR Coag (PPP) [Relative time] 1.0 {INR} Normal 0.9-1.2 [facility] Comment on above: Performed By: #### D CITLALY, LIP, CMPX, TROPI, BNP, CDP, PT #### [facility] [address] [place] [address] [employer] Washer: Sami Dominguez MD PT Coag (PPP) [Time] 10.0 s Normal 9.7-12.2 [facility] Comment on above: Performed By: #### D CITLALY, LIP, CMPX, TROPI, BNP, CDP, PT #### [facility] [address] [place] [address] Oil [employer] Washer: Sami Dominguez MD Protime-INRon 08-02-2019 INR Coag (PPP) [Relative time] 1.0 {INR} [place], [place] PT Coag (PPP) [Time] 10 s [place] Troponinon 08-02-2019 Troponin I.cardiac [Mass/Vol] ng/mL Normal <0.03 [facility] Comment on above: Result Comment: Trop onin T results cannot be compared to Troponin-I results. Performed By: #### D CITLALY, LIP, CMPX, TROPI, BNP, CDP, PT #### [facility] [address] [place] [address] Oil [employer] Washer: Sami Dominguez MD Troponin I.cardiac [Mass/Vol] Normal [facility] Comment on above: Result Comment: Refe rence [...] CMPX, TROPI, BNP, CDP, PT #### [facility] [address] [place] [address] [employer] Washer: Sami Dominguez MD Troponin I.cardiac [Mass/Vol] NOT REPORTED Normal 0-14 [facility] Comment on above: Performed By: #### D CITLALY, LIP, CMPX, TROPI, BNP, CDP, PT #### [facility] [address] [place] [address] [place] [address] Oil Rag Washer: Sami Dominguez MD Troponin I.cardiac [Mass/Vol] [place], [place] Comment on above: Reference Range: <0.03 [...] diagnosis. Troponin T.cardiac [Mass/Vol] ug/L <0.03 ng/mL [place] Comment on above: Troponin T results c annot be compared to Troponin-I results. Troponin, High Sensitivity NOT REPORTED 0 - 14 ng/L [place] Troponin I.cardiac [Mass/Vol] ng/mL Normal <0.03 [facility] Comment on above: Result Comment: Trop onin T results cannot be compared to Troponin-I results. Performed By: #### D CITLALY, LIP, CMPX, TROPI, BNP, CDP, PT #### [address] [place] [address] Oil Rag Washer: Sami Dominguez MD Troponin I.cardiac [Mass/Vol] Normal [facility] Comment on above: Result Comment: Refe rence [...] CMPX, TROPI, BNP, CDP, PT #### [facility] [address] [place] [address] [place] [address] [employer] Washer: Sami Dominguez MD Troponin I.cardiac [Mass/Vol] NOT REPORTED Normal 0-14 [facility] Comment on above: Performed By: #### D CITLALY, LIP, CMPX, TROPI, BNP, CDP, PT #### [facility] [address] [place] [address] Oil [employer] Washer: Sami Dominguez MD Troponin I.cardiac [Mass/Vol] [place] Comment on above: Reference Range: <0.03 [...] diagnosis. Troponin T.cardiac [Mass/Vol] ug/L <0.03 ng/mL [place] Comment on above: Troponin T results c annot be compared to Troponin-I results. Troponin, High Sensitivity NOT REPORTED 0 - 14 ng/L [place] UA w/Reflex Cultureon 2018 Acetoacetic Acid,Ur Negative Normal NEG [facility] Comment on above: Performed By: #### D CITLALY, LIP, CMPX, TROPI, BNP, CDP, PT #### [facility] [address] [place] [address] [place] [address] Oil [employer] Washer: Sami Dominguez MD Bilirubin, SemiQt,Ur Negative Normal NEG [facility] Comment on above: Performed By: #### D CITLALY, LIP, CMPX, TROPI, BNP, CDP, PT #### [facility] [address] [address] Oil Rag Washer: Sami Dominguez MD Color (U) YELLOW Normal YEL [facility] Comment on above: Performed By: #### D CITLALY, LIP, CMPX, TROPI, BNP, CDP, PT #### [facility] [address] [place] [address] Dr. [place], [place] [id number] Oil [employer] Washer: Sami Dominguez MD Glucose Ql (U) Negative Normal NEG [facility] Comment on above: Performed By: #### D CITLALY, LIP, CMPX, TROPI, BNP, CDP, PT #### [facility] [address] [place] [address] Dr. [place], [place] [id number] [employer] Washer: Sami Dominguez MD Hemoglobin, Ur 1+ Abnormal NEG [facility] Comment on above: Performed By: #### D CITLALY, LIP, CMPX, TROPI, BNP, CDP, PT #### [address] [place] [address] Oil [employer] Washer: Sami Dominguez MD Leukocyte esterase Test strip Ql (U) MODERATE Abnormal NEG [facility] Comment on above: Performed By: #### D CITLALY, LIP, CMPX, TROPI, BNP, CDP, PT #### [address] [place], [place] [id number] [employer] Washer: Sami Dominguez MD Nitrite,Ur Negative Normal [facility] Comment on above: Performed By: #### D CITLALY, LIP, CMPX, TROPI, BNP, CDP, PT #### [address] [place] [address] Oil Rag Washer: Sami Dominguez MD pH (U) 6.0 [pH] Normal 5.0-9.0 [facility] Comment on above: Performed By: #### D CITLALY, LIP, CMPX, TROPI, BNP, CDP, PT #### [facility] [address] [place] [address] [place] [address] Oil [employer] Washer: Sami Dominguez MD Protein Ql (U) TRACE Abnormal NEG [facility] Comment on above: Performed By: #### D CITLALY, LIP, CMPX, TROPI, BNP, CDP, PT #### [facility] [address] [place] [address] Oil Rag Washer: Sami Dominguez MD Specific gravity (U) [Rel density] 1.010 Normal 1.010-1.020 [facility] Comment on above: Performed By: #### D CITLALY, LIP, CMPX, TROPI, BNP, CDP, PT #### [facility] [address] [address] Oil Rag Washer: Sami Dominguez MD Turbidity CLEAR Normal CLEAR [facility] Comment on above: Performed By: #### D CITLALY, LIP, CMPX, TROPI, BNP, CDP, PT #### [facility] [address] [place] [address] Oil Rag Washer: Sami Dominguez MD Urobilinogen,Ur Normal Normal NORM [facility] Comment on above: Performed By: #### D CITLALY, LIP, CMPX, TROPI, BNP, CDP, PT #### [facility] [address] [address] Oil Rag Washer: Sami Dominguez MD Comment NOT REPORTED Normal [facility] Comment on above: Performed By: #### D CITLALY, LIP, CMPX, TROPI, BNP, CDP, PT #### [address] [place] [address] Oil Rag Washer: Sami Dominguez MD Urinalysis Reflex to Culture on 08-02-2019 Bilirubin Urine Negative NEGATIVE [facility], [place] Color, UA YELLOW YELLOW [place], [place] Glucose, Ur Negative NEGATIVE [place] Interpretation and review of laboratory results Abnormal [facility] Ketones Ql (U) Negative NEGATIVE [place] Leukocyte esterase Test strip Ql (U) MODERATE Abnormal NEGATIVE [facility] Nitrite, Urine Negative NEGATIVE [facility] pH, UA 6.0 [place] Protein (U) [Mass/Vol] TRACE Abnormal NEGATIVE [facility], [place] Specific [place], UA 1.010 [facility], [place] Turbidity UA CLEAR CLEAR [place] Urinalysis Comments NOT REPORTED [place], [place] Urine Hgb 1+ Abnormal NEGATIVE [place] Urobilinogen, Urine Normal Normal [place] Urinalysis,Microon 9 ----- Normal [facility] Comment on above: Performed By: #### D CITLALY, LIP, CMPX, TROPI, BNP, CDP, PT #### [facility] [address] [place] [phone] Oil Rag Washer: Sami Dominguez MD Bacteria LM.HPF (Urine sed) [#/Area] 1+ Abnormal NONE [facility] Comment on above: Performed By: #### D CITLALY, LIP, CMPX, TROPI, BNP, CDP, PT #### [facility] [address] [address] Oil Rag Washer: Sami Dominguez MD Epithelial cells LM.HPF (Urine sed) [#/Area] 2 TO 5 Normal 0-25 [facility] Comment on above: Performed By: #### D CITLALY, LIP, CMPX, TROPI, BNP, CDP, PT #### [facility] [address] [address] Oil Rag Washer: Sami Dominguez MD RBC (U) [#/Vol] None Normal 0-2 [facility] Comment on above: Performed By: #### D CITLALY, LIP, CMPX, TROPI, BNP, CDP, PT #### [facility] [address] [place] [phone] Oil [employer] Washer: Sami Dominguez MD WBC (U) [#/Vol] 50 TO 100 Normal 0-5 [facility] Comment on above: Performed By: #### D CITLALY, LIP, CMPX, TROPI, BNP, CDP, PT #### [facility] [address] [address] Oil Rag Washer: Sami Dominguez MD Amorphous sediment LM Ql (Urine sed) NOT REPORTED Normal [facility] Comment on above: Performed By: #### D CITLALY, LIP, CMPX, TROPI, BNP, CDP, PT #### [facility] [address] [place] [address] Dr. [place], [place] [address] Oil Rag Washer: Sami Dominguez MD Casts LM.LPF (Urine sed) [#/Area] NOT REPORTED Normal [facility] Comment on above: Performed By: #### D CITLALY, LIP, CMPX, TROPI, BNP, CDP, PT #### [facility] [address] [place] [phone] Oil [employer] Washer: Sami Dominguez MD Crystals LM Nom (Urine sed) NOT REPORTED Normal [facility] Comment on above: Performed By: #### D CITLALY, LIP, CMPX, TROPI, BNP, CDP, PT #### [address] [place] [phone] Oil Rag Washer: Sami Dominguez MD Epithelial, Renal NOT REPORTED Normal 0 [facility] Comment on above: Performed By: #### D CITLALY, LIP, CMPX, TROPI, BNP, CDP, PT #### [address] [place], [id number] Oil Rag Washer: Sami Dominguez MD Mucus Strands NOT REPORTED Normal [facility] Comment on above: Performed By: #### D CITLALY, LIP, CMPX, TROPI, BNP, CDP, PT #### [address] [place], [id number] Oil Rag Washer: Sami Dominguez MD Other Observations NOT REPORTED Normal NREQ [facility] Comment on above: Performed By: #### D CITLALY, LIP, CMPX, TROPI, BNP, CDP, PT #### [address] [place], [place] [phone] Oil Rag Washer: Sami Dominguez MD Trichomonas NOT REPORTED Normal [facility] Comment on above: Performed By: #### D CITLALY, LIP, CMPX, TROPI, BNP, CDP, PT #### [facility] [address] [place] [address] Oil Rag Washer: Sami Dominguez MD Yeast LM Ql (Urine sed) NOT REPORTED Normal NONE [facility] Comment on above: Performed By: #### D CITLALY, LIP, CMPX, TROPI, BNP, CDP, PT #### [facility] [address] [place] [address] Oil Rag Washer: Sami Dominguez MD XR CHEST PORTABLEon 08-02-20 [...] Cullen Ngo MD 08/02/19 Final result Normal [facility] EXAMINATION: ONE XRA Y VIEW OF THE CHEST 08/02/2019 12:59 pm COMPARISON: None. HISTORY: ORDERING SYSTEM PROVIDED HISTORY: CP TECHNOLOGIST PROVIDED HISTORY: CP FINDINGS: Heart size and pulmonary vessels are within normal limits. Lungs are clear. No focal infiltrates or significant pleural effusions are seen. There is no acute osseous abnormality. Monitor leads overlie the chest. [place] No acute cardiopulmo nary process. [place] Moshe, [facility] Incoming Radiant Results From [employer] - 08/02/2019 1:10 PM EDT EXAMINATION: ONE [...] the chest. IMPRESSION: No acute cardiopulmonary process. [place] Vital Signs Date Time Vital Sign Value Performing Clinician Facility 07-30-2022 17:40-0400 Body height 157.48 cm Yaneth Toni Other [facility] Other 07-30-2022 17:40-0400 Body mass index (BMI) [Ratio] 36.69 kg/m2 Yaneth Toni Other [facility] Other 07-30-2022 17:40-0400 Body temperature 97.4 [degF] Yaneth Toni Other [facility] Other 07-30-2022 17:40-0400 Body weight 90.99 kg Yaneth Toni Other [facility] Other 07-30-2022 17:40-0400 Diastolic blood pressure 85 mm[Hg] Yaneth Toni Other [facility] Other 07-30-2022 17:40-0400 Respiratory rate 18 /min Yaneth Toni Other [facility] Other 07-30-2022 17:40-0400 SaO2% (BldA) [Mass fraction] 99 % Yaneth Toni Other [facility] Other 07-30-2022 17:40-0400 Systolic blood pressure 124 mm[Hg] Yaneth Toni Other [facility] Other 07-03-2022 09:45-0400 Body height 157.48 cm Estefania Vo Other [facility] Other 07-03-2022 09:45-0400 Body mass index (BMI) [Ratio] 36.76 kg/m2 Estefania Vo Other [facility] Other 07-03-2022 09:45-0400 Body temperature 97 [degF] Estefania Vo Other [facility] Other 07-03-2022 09:45-0400 Body weight 91.17 kg Estefania Vo Other [facility] Other 07-03-2022 09:45-0400 Diastolic blood pressure 60 mm[Hg] Estefania Vo Other [facility] Other 07-03-2022 09:45-0400 SaO2% (BldA) [Mass fraction] 99 % Estefania Vo Other [facility] Other 07-03-2022 09:45-0400 Systolic blood pressure 110 mm[Hg] Estefania Vo Other [facility] [employer] Other 06-20-2022 16:10-0400 Diastolic blood pressure 68 mm[Hg] DO Ming Espinoza Work Phone: [facility] 06-20-2022 16:10-0400 Heart rate 69 /min DO Ming Alexis Work Phone: [facility] 06-20-2022 16:10-0400 Respiratory rate 18 /min DO Ming Alexis Work Phone: [facility] 06-20-2022 16:10-0400 SaO2% (BldA) [Mass fraction] 100 % DO Ming Alexis Work Phone: [facility] 06-20-2022 16:10-0400 Systolic blood pressure 126 mm[Hg] DO Ming Alexis Work Phone: [facility] 06-20-2022 13:15-0400 Body height 157.48 cm DO Ming Alexis Work Phone: [facility] 06-20-2022 13:15-0400 Body temperature 98.6 [degF] DO Ming Espinoza Work Phone: [facility] 06-20-2022 13:15-0400 Body weight 91.5 kg DO Ming Espinoza Work Phone: [facility] 06-18-2022 10:45-0400 Diastolic blood pressure 79 mm[Hg] DO Ming Espinoza Work Phone: [facility] 06-18-2022 10:45-0400 Heart rate 66 /min DO Ming Espinoza Work Phone: [facility] 06-18-2022 10:45-0400 Respiratory rate 16 /min DO Ming Espinoza Work Phone: [facility] 06-18-2022 10:45-0400 SaO2% (BldA) [Mass fraction] 100 % DO Ming Espinoza Work Phone: [facility] 06-18-2022 10:45-0400 Systolic blood pressure 130 mm[Hg] DO Ming Espinoza Work Phone: [facility] 06-18-2022 08:08-0400 Body mass index (BMI) [Ratio] 37.8 kg/m2 DO Ming Espinoza Work Phone: [facility] 06-18-2022 07:41-0400 Body height 157.48 cm DO Ming Espinoza Work Phone: [facility] 06-18-2022 07:41-0400 Body weight 93.89 kg DO Ming Espinoza Work Phone: [facility] 06-18-2022 06:26-0400 Body temperature 98.5 [degF] DO Ming Espinoza Work Phone: [facility] 05-30-2022 11:00-0400 Body height 157.48 cm Jesus Parham Other [facility] Other 05-30-2022 11:00-0400 Body mass index (BMI) [Ratio] 36.76 kg/m2 Jesus Parham Other [facility] Other 05-30-2022 11:00-0400 Body temperature 97.6 [degF] Jesus Parham Other [facility] Other 05-30-2022 11:00-0400 Body weight 91.17 kg Jesus Parham Other [facility] Other 05-30-2022 11:00-0400 Diastolic blood pressure 76 mm[Hg] Jesus Parham Other [facility] Other 05-30-2022 11:00-0400 SaO2% (BldA) [Mass fraction] 98 % Jesus Dione Other [facility] Other 05-30-2022 11:00-0400 Systolic blood pressure 128 mm[Hg] Jeuss Parham Other [facility] Other 05-02-2022 14:40-0400 Body height 157.48 cm Yaneth Toni Other [facility] Other 05-02-2022 14:40-0400 Body mass index (BMI) [Ratio] 36.76 kg/m2 Yaneth Toni Other [facility] Other 05-02-2022 14:40-0400 Body temperature 97.7 [degF] Yaneth Toni Other [facility] Other 05-02-2022 14:40-0400 Body weight 91.17 kg Yaneth Toni Other [facility] Other 05-02-2022 14:40-0400 Diastolic blood pressure 88 mm[Hg] Yaneth Toni Other [facility] Other 05-02-2022 14:40-0400 Respiratory rate 18 /min Yaneth Toni Other [facility] Other 05-02-2022 14:40-0400 SaO2% (BldA) [Mass fraction] 98 % Yaneth Toni Other [facility] Other 05-02-2022 14:40-0400 Systolic blood pressure 121 mm[Hg] Yaneth Toni Other [facility] Other 04-30-2022 10:10-0400 Body height 157.48 cm Dipika Shantell Other [facility] Other 04-30-2022 10:10-0400 Body mass index (BMI) [Ratio] 37.86 kg/m2 Dipika Shantell Other [facility] Other 04-30-2022 10:10-0400 Body temperature 97.4 [degF] Dipika Shantell Other [facility] Other 04-30-2022 10:10-0400 Body weight 93.9 kg Dipika Shantell Other [facility] Other 04-30-2022 10:10-0400 Diastolic blood pressure 80 mm[Hg] Dipika Stinson Other [facility] Other 04-30-2022 10:10-0400 Respiratory rate 16 /min Dipika Stinson Other [facility] Other 04-30-2022 10:10-0400 SaO2% (BldA) [Mass fraction] 100 % Dipika Stinson Other [facility] Other 04-30-2022 10:10-0400 Systolic blood pressure 117 mm[Hg] Dipika Stinson Other [facility] Other 04-01-2022 09:13-0400 Diastolic blood pressure 62 mm[Hg] DO Ming Espinoza Work Phone: [facility] 04-01-2022 09:13-0400 Heart rate 83 /min DO Ming Espinoza Work Phone: [facility] 04-01-2022 09:13-0400 Respiratory rate 16 /min DO Ming Espinoza Work Phone: [facility] 04-01-2022 09:13-0400 SaO2% (BldA) [Mass fraction] 97 % DO Ming Espinoza Work Phone: [facility] 04-01-2022 09:13-0400 Systolic blood pressure 101 mm[Hg] DO Ming Espinoza Work Phone: [facility] 04-01-2022 07:23-0400 Body height 157.48 cm DO Ming Espinoza Work Phone: [facility] 04-01-2022 07:23-0400 Body mass index (BMI) [Ratio] 37.8 kg/m2 DO Ming Espinoza Work Phone: [facility] 04-01-2022 07:23-0400 Body temperature 97.8 [degF] DO Ming Espinoza Work Phone: [facility] 04-01-2022 07:23-0400 Body weight 93.89 kg DO Ming Espinoza Work Phone: [facility] 12-06-2021 16:20-0500 Body height 157.48 cm Yaneth Toni Other [facility] Other 12-06-2021 16:20-0500 Body mass index (BMI) [Ratio] 37.86 kg/m2 Yaneth Toni Other [facility] Other 12-06-2021 16:20-0500 Body weight 93.9 kg Yaneth Toni Other [facility] Other 12-06-2021 16:20-0500 Diastolic blood pressure 89 mm[Hg] Yaneth Toni Other [facility] Other 12-06-2021 16:20-0500 Respiratory rate 18 /min Yaneth Toni Other [facility] Other 12-06-2021 16:20-0500 SaO2% (BldA) [Mass fraction] 97 % Yaneth Toni Other [facility] Other 12-06-2021 16:20-0500 Systolic blood pressure 134 mm[Hg] Yaneth Toni Other [facility] Other 08-02-2019 16:35-0400 Body Temperature 99.3 [degF] [facility] [place] 08-02-2019 16:27-0400 Pulse (Heart Rate) 110 /min [facility] [place] 08-02-2019 16:27-0400 Pulse Oximetry 98 % Vidal [employer] [facility] [place] 08-02-2019 16:27-0400 Respiratory Rate 14 /min Vidal Peguero [facility], [place] 08-02-2019 16:16-0400 BP Diastolic 56 mm[Hg] Vidal Peguero [facility] [place] , [place] 08-02-2019 16:16-0400 BP Systolic 97 mm[Hg] Vidal Peguero [facility] , [place] 08-02-2019 14:59-0400 BMI (Body Mass Index) 37.79 kg/m2 Vidal Peguero [facility], [place] 08-02-2019 14:59-0400 Body weight 90.72 kg Vidal Peguero [facility] , [place] 08-02-2019 14:59-0400 Height 154.9 cm Vidal Peguero [facility] , [place] Encounters Encounter Date Encounter Type Care Provider Facility Start: 12-23-2023 End: 12-23-2023 ambulatory MUNIRA PHAN [facility] Start: 11-06-2023 End: 11-06-2023 ambulatory Ming Espinoza Facility:[facility] Start: 11-06-2023 End: 11-06-2023 ambulatory DO Ming Espinoza Work Phone: [facility] Work Phone: Start: 11-06-2023 End: 11-06-2023 Patient encounter procedure DO Ming Espinoza Work Phone: [facility] [address] Work Phone: Start: 10-13-2023 End: 10-13-2023 ambulatory MING ESPINOZA Not Available Start: 09-01-2023 End: 09-01-2023 ambulatory [facility] Start: 08-26[facility]23 [facility]: 07-30-2023 End: 07-30-2023 ambulatory Ming Espinoza Facility:[facility]: [facility]: 05-29-2023 amb[facility] Start: 04-30-2023 ambulatory SUJIT DOLORES [facility] Start: 04-16-2023 End: 04-16-2023 ambulatory [facility] Start: 03-31-2023 ambulatory SUJIT DOLORES [facility] Start: 02-24-2023 ambulatory SUJITVINICIUS BERNAL [facility] Start: 02-03-2023 End: 02-03-2023 ambulatory [facility] Start: 02-01-2023 ambulatory SUJITVINICIUS BERNAL [facility] Start: 01-17-2023 ambulatory SUJITVINICIUS BERNAL [facility] Start: 01-17-2023 Encounter for other preprocedural examination [facility] Start: 01-09-2023 ambulatory SUJITVINICIUS BERNAL [facility] Start: 01-01-2023 ambulatory SUJIT BERNAL [facility] Start: 12-25-2022 End: 12-25-2022 [facility] [facility] Start: 07-30-2022 End: 07-30-2022 ambulatory Yaneth Toni Other [employer] [facility] [employer] Other Start: 07-30-2022 Office outpatient vi sit 25 minutes Yaneth Toni [facility] Start: 07-29-2022 End: 07-30-2022 ambulatory YANETH TONI Facility: Start: 07-16-2022 End: 07-16-2022 ambulatory DO Ming Espinoza Work Phone: [facility] Work Phone: Start: 07-16-2022 End: 07-16-2022 Patient encounter procedure DO Ming Espinoza Work Phone: [facility] Start: 07-03-2022 End: 07-03-2022 ambulatory Estefania Vo Other [employer] [employer] Other Start: 07-03-2022 Follow-up encounter Estefania Tavo [facility] Start: 06-20-2022 End: 06-20-2022 ambulatory Jesus Parham Other [employer] [employer] Other Start: 06-20-2022 Telephone encounter Jesus adler [facility] Start: 06-20-2022 End: 06-20-2022 Emergency department patient visit DO Ming Espinoza Work Phone: [facility] Start: 06-18-2022 End: 06-18-2022 Admission to same day surgery center DO Ming Espinoza Work Phone: [facility] [place] Start: 06-14-2022 End: 06-14-2022 Patient encounter procedure DO Ming Espinoza Work Phone: [facility] Start: 06-06-2022 End: 06-07-[address] BRINDA HINOJOSA Facility: Start: 06-05-2022 End: 06-05-2022 Patient encounter procedure DO Ming Espinoza Work Phone: [facility] Start: 06-03-2022 End: 06-03-2022 ambulatory Jesus Parham Other [employer] [employer] Other Start: 06-03-2022 Encounter for other preprocedural examination Jesus Parham [facility] Start: 06-03-2022 Telephone encounter Jesus adler [facility] Start: 05-30-2022 End: 05-30-2022 ambulatory Jesus Parham Other [employer] [employer] Other Start: 05-30-2022 FQ[facility] visit new patient Jesus Montanez chalo [facility] Start: 05-30-2022 End: 05-30-2022 Patient encounter procedure DO Ming Espinoza Work Phone: [facility] Start: 05-29-[address] BLAKE HINOJOSA [facility] ity:H1 Start: 05-02-2022 End: 05-02-2022 ambulatory Yaneth Toni Other [employer] [employer] Other Start: 05-02-2022 Office outpatient vi sit 25 minutes Yaneth Toni [facility] Start: 04-30-2022 End: 04-30-2022 ambulatory Dipika Stinson Other [facility] Other Start: 04-30-2022 Office outpatient vi sit 15 minutes Dipika Stinson [facility] Start: 04-30-2022 Encounter for preprocedural laboratory examination YANETH MUÑOZ [facility] Start: 04-29-2022 Encounter for other preprocedural examination DR DOCTOR ALEJANDRO [facility] Start: 04-27-2022 End: 04-28-2022 Encounter for other preprocedural examination DR MING ESPINOZA Facility:[facility] Start: 04-27-2022 End: 04-28-[address] MING ESPINOZA Facility:[facility] Start: 04-27-2022 End: 04-28-2022 Encounter for preprocedural laboratory examination YANETH TONI Facility:[facility] Start: 04-03-2022 Encounter for other specified special examinations DR DOCTOR ALEJANDRO [facility] Start: 04-01-2022 End: 04-01-2022 Admission to same day surgery center DO Ming Espinoza Work Phone: [facility] Start: 03-29-2022 End: 03-30-[address] DOCTOR ALEJANDRO Facility:[facility] Start: 03-29-2022 End: 03-30-2022 Encounter for other specified special examinations DR DOCTOR ALEJANDRO Facility:[facility] Start: 03-28-2022 End: 03-28-2022 Patient encounter procedure DO Ming Espinoza Work Phone: [facility] Start: 02-26-2022 End: 02-26-2022 ambulatory Shabbir Jones Other [employer] [facility] [employer] Other Start: 02-26-2022 Telephone encounter Shabbir VELAZQUEZ [employer] Start: 12-06-2021 End: 12-06-2021 ambulatory Yaneth Toni Other [employer] [employer] Other Start: 12-06-2021 Office outpatient vi sit 25 minutes Yaneth Toni [facility] Start: 12-03-2021 End: 12-04-2021 ambulatory YANETH TONI Facility:[facility] Start: 09-01-2021 End: 09-02-[address] MING ESPINOZA Facility:[facility] Start: 08-02-2019 End: 08-02-2019 Emergency department patient visit VIDALNELIA MADRIGAL [facility] Start: 08-02-2019 End: 08-02-2019 Emergency department patient visit Vidal Madrigal Work Phone: [facility] ED Comment on above: Acute sepsis (HCC) [...] KAITLIN Start: 08-02-2019 Assay of lactate Vidal Madrigal [...] Phone: Start: 08-02-2019 LACTATE, SEPSIS Vidal W eese Work Phone: Start: 08-02-2019 Natriuretic peptide Tyl er Kaitlin Work Phone: Start: 08-02-2019 Prothrombin time Vidal Madrigal Work Phone: Start: 08-02-2019 INITIATE OXYGEN THER APY PROTOCOL Vidal Madrigal Work Phone: Start: 08-02-2019 Ecg routine ecg w/le ast 12 lds w/i&r Vidal Madrigal Work Phone: SARS Antigen (LFIA) DO Angy Espinoza Work Phone: Plan of Treatment Date Care Activity Detail Author Start: 11-06-2023 [facility] Start: 06-18-2022 [facility] Start: 06-18-2022 [facility] Start: 04-01-2022 [facility] Work Phone: Start: 06-06-2019 Influenza vaccination Flu vaccine (# 1) [place], [place] Start: 2015 Lipid screen Lipid screen [place], [place] Start: 1996 Cervical cancer screen Cervical canc er screen [place], [place] Start: 1994 DTaP/Tdap/Td vaccine (1 - Tdap) DTaP/Tdap/Td vaccine (1 - Tdap) [place], [place] Start: 1990 HIV screen HIV screen [place], [place] Start: 1975 Creatinine monitoring Creatinine mon itoring [place], [place] Start: 1975 Potassium monitoring Potassium monit [place]ing [place] End: 08-02-2019 Bacteria identified Cx Nom (U) Urine Culture Microbiology STAT One Time for 1 Occurrences starting 08/02/2019 until 08/02/2019 [place] Comment on above: One Time for 1 Occur rences starting 08/02/2019 until 08/02/2019 Bacteria identified Cx Nom (U) Urine Culture Microbiology STAT 08/02/2019 1:00 PM EDT [place] End: 08-02-2019 Culture blood #1 Culture blood #1 Microbiology STAT One Time for 1 Occurrences starting 08/02/2019 until 08/02/2019 [place] Comment on above: One Time for 1 Occur rences starting 08/02/2019 until 08/02/2019 End: 08-02-2019 Culture blood #2 Culture blood #2 Microbiology STAT One Time for 1 Occurrences starting 08/02/2019 until 08/02/2019 [facility] [place] Comment on above: One Time for 1 Occur rences starting 08/02/2019 until 08/02/2019 EKG 12 Lead EKG 12 Lead ECG STAT 08/02/2019 12:25 PM EDT [facility] [place] Homogenous nuclear A b pattern [Titer] in Serum [facility] Initiate Oxygen Ther apy Protocol Initiate Oxygen Therapy Protocol Respiratory Care Routine Daily until discontinued starting 08/02/2019, 2 completed [facility] [place] Comment on above: Daily until disconti nued starting 08/02/2019, 2 completed End: 08-02-2019 Lactate, Sepsis Lactate, Sepsis Lab Timed Now Then Every 2hr for 2 Occurrences starting 08/02/2019 until 08/02/2019, 1 completed [facility] [place] Comment on above: Now Then Every 2hr f or 2 Occurrences starting 08/02/2019 until 08/02/2019, 1 completed Nuclear Ab [Titer] i n Serum [facility] Patient Education [facility] Work Phone: Patient referral [facility] Work Phone: Potassium [Moles/vol ume] in Serum or Plasma [facility] Work Phone: Immunizations Immunization Date Immunization Notes Care Provider Chirag summers 10-13-2021 COVID-19 Ad26.COV2.S (Ainsley) DO Ming Espinoza Work Phone: [facility] Payers Date Payer Category Payer Unknown [employer] [address] xxxxxxxxx 2015-Present [phone] [address] [place] [address] xxxxxxxxx [id number] 1975 Unknown [id number] 1975 Unknown [id number] 1975 Unknown [id number] 1975 Unknown [id number] 1975 Unknown [id number] 1975 Unknown [id number] 1975 Unknown [id number] 1975 Unknown [id number] [id number] 1975 Unknown [id number] 1975 Unknown [id number] 9 1959 Self-pay [id number] 1959 Unknown [id number] 1959 Unknown [id number] Unknown [id number] Unknown [id number] [id number] Unknown [id number] Social History Date Type Detail Facility Tobacco smoking status CTIS Unknown if ever smoked [facility], [facility] Sex Assigned At Sex Assigned At [facility] [employer] [employer] Other Start: 06-05-2022 End: 06-20-2022 Tobacco smoking status NHIS Never smoked tobacco (finding) [facility] Start: 1975 Sex Assigned At Female F [facility] Goals Date Patient Goal Desired Activity /State Clinical Notes 05-17-2020 to 12-23-2023 Note Date & Type Note Facility 12-23-2023 Note 12/23/23 Chief Complaint Patient presents with Kidney Follow-up Pt has questions about her lab work. PCP: Ming Espinoza MD Txp Referring: Yaneth Muñoz [facility] Pharmacy: [facility] [address] [place] [address] [place] [address] [facility] [address] [facility]/pharmacy #[id number] [place], [place] - [address] [facility] AT CORNER OF [address] [address] [facility] [address] [address] Subjective Visit Vitals BP 116/73 (BP Location: Left arm, Patient Position: Sitting, BP Cuff Size: Adult) Pulse 78 Temp 36.6 ???C (97.8 ???F) (Oral) Resp 19 Ht 1.549 m (5' 1 ) Wt 82.1 kg (181 lb) BMI 34.20 kg/m??? OB Status Hysterectomy Smoking Status Never BSA 1.88 m??? Allergies Allergen Reactions Allopurinol Effexor [Venlafaxine] Hives Venlafaxine Hcl Other reaction(s): bad side effect Medication Documentation Review Audit Reviewed by Trupti Sanchez MA (Scrubber Operator) on 12/23/23 at 1430 Medication Order Taking? Sig Documenting Provider Last Dose Status amLODIPine (Norvasc) 10 mg tablet [id number] Take 1 tablet (10 mg) by mouth in the morning. Aguila Pa MD 10/24/23 8376 bumetanide (Bumex) 2 mg tablet [id number] Take 1 tablet (2 mg) by mouth in the morning. Patient not taking: Reported on 11/08/2022 Aguila Pa MD 10/25/22 2359 docusate sodium (Colace) 100 mg capsule [id number] Take 1 capsule (100 mg) by mouth in the morning and at bedtime. Patient not taking: Reported on 09/01/2023 Paty Ansari, NORMA Active DULoxetine (Cymbalta) [address] capsule [id number] Yes Take 1 capsule every day by oral route. Historical ProviderMD Taking Active Envarsus XR 1 mg tablet ER [id number] Yes TAKE 3 TABLETS BY MOUTH ONCE DAILY IN THE MORNING. TAKE ALONG WITH 0.75 MG TABLETS DIRECTED FOR TOTAL DOSE UP TO 4.5 MG PER DAY. Patient taking differently: Take 2 mg by mouth in the morning. Aguila Pa MD Taking Active famotidine (Pepcid) 20 mg tablet [id number] Yes Take 1 tablet (20 mg) by mouth in the morning. Patient taking differently: Take 20 mg by mouth if needed. Aguila Pa MD Taking Active febuxostat (Uloric) 40 mg tablet [id number] Take 0.5 tablets every day by oral route. Historical ProviderMD Active ferrous sulfate 325 (65 Fe) MG tablet [id number] No Take 65 mg by mouth every other day. Historical ProviderMD Not Taking Active fish oil (Charlotte-3) 60-90-500 mg capsule [id number] No Take 2 capsules (1,000 mg) by mouth in the morning and at bedtime. Patient not taking: Reported on 12/23/2023 Sujit Bernal MD Not Taking Active Levemir FlexPen 100 unit/mL (3 mL) pen [id number] No INJECT 12 UNITS SUBCUTANEOUS IN AM 30 DAYS Historical ProviderMD Not Taking Flag for Review magnesium oxide (Mag-Ox) 400 mg (241.3 mg magnesium) tablet [id number] Yes TAKE 2 TABLETS BY MOUTH IN THE MORNING AND 2 TABLETS AT BEDTIME Nelson Davies MD Taking Active mycophenolate (Myfortic) 180 mg EC tablet [id number] Yes Take 4 tablets (720 mg) by mouth in the morning and at bedtime. Aguila Pa MD Taking Active oxyCODONE-acetaminophen (Percocet) 5-325 mg tablet [id number] Take 1 tablet by mouth every 6 (six) hours if needed for severe pain (8-10 pain score) for up to 20 doses. Patient not taking: Reported on 09/01/2023 Paty Ansari NP Active potassium chloride CR (Klor-Con M20) 20 mEq ER tablet [id number] Yes Take 1 tablet (20 mEq) by mouth in the morning. Do not crush or chew. Andrea Elizondo MD Taking Active pravastatin (Pravachol) 40 mg tablet [id number] Yes Take 1 tablet (40 mg) by mouth at bedtime. Patient taking differently: Take 40 mg by mouth at bedtime. 40 mg 4 times a week. Fri Sat Kevin Raymond MD Taking Active Immunization History Administered Date(s) Administered Ainsley Sars-Cov-2 Vaccination 10/13/2021 Patient Active Problem List Diagnosis Anxiety COVID-19 Depressive disorder Gastroesophageal reflux disease Gout Primary hypertension Multiple congenital cysts of kidney Stage 4 chronic kidney disease ([facility]) Encounter for aftercare following kidney transplant Immunosuppressed status ([facility]) Hyperuricemia Metabolic acidosis Bilateral lower extremity edema Hypokalemia Immunosuppressive management encounter following kidney transplant Dysuria Hypomagnesemia Electrolyte imbalance History of gout Myopathy, unspecified Dyslipidemia Hyperglycemia Family History Problem Relation Name Age of Onset Fibromyalgia Mother Heart disease Father Hypertension Sister Polycystic kidney disease Sister Hypertension Brother Polycystic kidney disease Brother Social History Tobacco Use Smoking status: Never Smokeless tobacco: Neve (more content not included)... [facility] 10-02-2023 Note Per phone order Tyler sorto MD, increase Kdur from 10meq every day to 20meq every day due to K 3.2 on 09/26/23. Pt informed and verbalized understanding. Amiloride removed from her MAR as she reported in July she is not taking and reconfirmed today. [facility] 09-01-2023 Note ---- Attestation signed by Sujit Bernal MD at 09/02/2023 9:30 AM By using the attestations below, the signing clinician agrees that I have read and verify that the documentation has been personally reviewed by me and ensure that the documentation accurately reflects the encounter. GC: I personally saw this patient with Dr. Raymond on the day of the encounter, performed the tinoco portion(s) of the service and participated in the management and confirm the resident's documentation. Please note there may be an additional personal documentation from me. Sujit Bernal MD, PhD ---- Nephrology Transplant Clinic Patient : Mandeep Puri; 47 y.o. REASON FOR VISIT: Follow up for history of kidney transplantation. HPI: BACKGROUND Mandeep Puri is a 47 y.o. female who underwent preemptive donor kidney transplantation on 09/20/2022 . Donor/recipient CMV +/+ , EBV IgG +/+ , EBV IgM -/+ . Donor's KDPI 46%. Her PRA was 55% Patient had a primary graft function. 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 She has left forearm AVF, has not been used yet. She was making urine befor transplant, approximately 3-5 per day. Today 09/01/23 patient presents for follow up: Hair loss, but no significant cosmetic effect. She understands it can be Envarsus side effects Off amiloride. On Ozempic Muscle aches allover worsen with Statin (now Nasreen, was on atorvastatin). She noticed dramatic relief when he was off any statin for short time No dyspnea on exertion. No leg swelling or edema. No fatigue. No diarrhea or constipation. ASSESSMENT & VISIT DIAGNOSES: 1. Encounter for aftercare following kidney transplant 2. Immunosuppressive management encounter following kidney transplant 3. Hypertension, unspecified type 4. Electrolyte disturbance 5. Myalgia due to statin DISCUSSION & PLAN - point by point: Kidney allograft function & status: Excellent allograft function currently serum creatinine is down to 1.12 making adequate urine output with no proteinuria. [place] kidneys with adult polycystic kidney disease BK and DSA have been negative so far, last from May 2023 Immunosuppressants: Envarsus XR 2 mg daily. Trough level is 9.2 therapeutic Myfortic 720 mg daily, Prednisone 5 mg Anti-microbials / Prophylaxis: COMPLETED Blood pressure, heart rate and volume status: Visit Vitals BP 122/68 Pulse 85 Controlled hypertension: Continue amlodipine 10 mg daily. No reported side effects Lytes, acid/base & minerals: Magnesium 1.5: INCREASE magnesium oxide 400 mg to a total of 5 pills/day from current dose of 4 pills total per day to be taken as 800 mg, 400 mg, 800 mg. Of note she could NOT tolerate amiloride Potassium 3.1: INCREASE potassium chloride to 20 meq per day from current dose of 10 meq per day Hematology: CBC parameters within normal limits: WBC 8. Hemoglobin 13.3 and platelets 374 Endocrinology: Statin myopathy/myalgia: LDL around 100. No history of atherosclerotic cardiovascular disease. Statin. DISCONTINUE rosuvastatin. Switch to pravastatin 40 mg daily if tolerated Triglyceride 248 we will continue to monitor HbA1c 5.4 Orders Placed This Encounter Procedures POCT urinalysis dipstick manually resulted Requested Prescriptions Signed Prescriptions Disp Refills pravastatin (Pravachol) 40 mg tablet 30 tablet 11 Sig: Take 1 tablet (40 mg) by mouth at bedtime. No images are attached to the encounter or orders placed in the encounter. FOLLOW UP: Follow up: In 3 months With midlevel SUBJECTIVE & OBJECTIVE DATA: In addition to above: Review of Systems Constitutional: Negative for activity change, appetite change, fatigue and unexpected weight change. HENT: Negative for congestion, facial swelling and trouble swallowing. Eyes: Negative for photophobia and visual disturbance. Respiratory: Negative for cough and shortness of breath. Cardiovascular: Negative for chest pain, palpitations and leg swelling. Gastrointestinal: Negative for abdominal distention, abdominal pain, constipation, diarrhea, nausea and vomiting. Endocrine: Negative for polydipsia, polyphagia and polyuria. Genitourinary: Negative for decreased urine volume, difficulty urinating, dysuria, flank pain, frequency, hematuria and urgency. Musculoskeletal: Positive for myalgias. Negative for arthralgias and joint swelling. Skin: Negative for color change, rash and wound. Hair loss Allergic/Immunologic: Positive for immunocompromised state. Neurological: Negative for dizziness, tremors, speech difficulty and headaches. Hematological: Negative for adenopathy. Does not bruise/bleed easily. Psychiatric/Behavioral: Negative for dysphoric moo (more content not included)... [facility] 08-06-2023 Note For K-level of 3.4, left VM to start Kdur [address] Bernal po. [facility] 07-24-2023 Note PT reports not lindsay ating the Amiloride with daily watery diarrhea (no longer formed) x 1 since starting medication with nausea and indigestion/acid reflux aggravated at times even with water. Pt will complete FU CMP and hold this medication pending review with [place] transplant provider. Advised her DSA collection is due as well and she verbalized understanding. Denies fever, chills or being around persons known to be ill. [facility] 07-24-2023 Note Per phone order Minerva morel MD, discontinue amiloride due to side effects and recheck her CMP in 2 weeks as serum K may drop. This coordinator spoke with Ramila victor in lab to complete CMP today. DSA reentered for next lab draw. Pt notified by phone and verbalized understanding. [facility] 07-24-2023 Note Per Shelly x 7686 BM P specimen not available. Notified Dolores FIERRO by phone and per his phone order, will repeat this labs in 7-10 days and pt was notified by phone and she verbalized understanding. Pt needs copy of her standing lab order. Will prepare for her pickup. [facility] 07-17-2023 Note Reviewed todays labs in person with Guillermo FIERRO and per his verbal order, pt should stop the oral potassium daily dosing and resume the Amiloride 5mg every day dosing with FU labs in one week to check for elevation in potassium. Pt verbalized understanding by phone and her RV will be rescheduled before the end of the year with [place] transplant by clinic [facility]. Per Dolores FIERRO, the pt may discontinue her Prednisone 5mg every other day dosing and she acknowledged. Tac pending. [facility] 07-16-2023 Note Reviewed by phone noreen Bernal MD pt input about her medication changes by PCP including stopping Amiloride. agreed to reschedule her 07/18 RV and review labs tomorrow by phone. Clinic [place] team informed to reschedule pt. [facility] 07-16-2023 Note Pt reports stopping Amiloride 5mg every day and starting Potassium 20meq every day & Ozempic 1mg subcutaneous weekly per PCP with improved glucose control. Monitors BP and no concerns. She will present to lab tomorrow for testing. Pt agrees and verbalized understanding. Pt to located her standing lab order for use @ [facility] prn. [facility] 07-10-2023 Note Returned 0816 voicem ail to pt asking about dental work antibiotic prophylaxis. Confirmed with pt no allergies to antibiotics and advised to take Amoxicillin 2 grams PO 30-60 minutes prior to dental work or cleanings and she verbalized understanding. PT will contact her dentist for RX she stated. [facility] 06-17-2023 Note Returned patients ca ll regarding local pharmacy informing her of a DDI Recommended to patient to take Crestor in the evening and Magnesium during the day (or at least 2 hours apart) to avoid decreased absorption due to DDI Liam Viveros PharmD Candidate 2023 [facility] 06-15-2023 Note 06/15/23 1100 Pt called and said was out of myfortic, mail order did not arrive. Pt takes myfortic 720 twice a day. Pt chart reviewed and dose confirmed. Prescription called in to [facility] pharmacy. 5 days supply, 40 tablets. Myfortic 180 tablets, take 720 mg - 4 tablets, twice a day. Pt notified myfortic available [place] out[place] pharm, open until 4 pm Friday. Pt verbalized understanding. [facility] 04-30-2023 Note Reviewed Tac Lvl 9.[address] Bernal, per verbal order one time elevation, will wait for next lab draw if it stays elevated will decrease Envarsus dosage. Reached out to patient via phone and told her to remain on current Envarsus dose and we will recheck her level with the next lab draw, patient confirms she is currently taking Envarsus 2 mg. [facility] 04-16-2023 Note Seen by Dolores FIERRO in clinic today, he states he gave the pt verbal instruction to reduce her Prednisone to 5mg every other day. [facility] 04-16-2023 Note Nephrology Transplan t Clinic Patient : Madneep Puri; 47 y.o. Reason for Visit: History of kidney transplant. SUBJECTIVE: History Of Present Illness: 04/16/2023 Mandeep Puri is a 47 y.o. female who is status post donor kidney transplantation on 09/20/2022 . Donor/recipient CMV +/+ , EBV IgG +/+ , EBV IgM -/+ . Donor's terminal creatinine and KDPI were 8.53 and 46%, respectively. Her PRA was 55% Patient had a primary graft function and has not required dialysis post transplant. Admission serum creatinine was 3.63; Discharge serum creatinine was 3.54 In the hospital she developed bradycardia that was attributed to hypokalemia and was seen by cardiology and no interventions required. 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 Has left forearm AVF, has not been used yet. Also history of hypertension on medications, GERD, hyperuricemia/gout on Uloric, depression/anxiety, sepsis and kidney infection in 2019 and h/o COVID infection on 05/17/2020 required hospitalization for dehydration. She was making makes urine befor transplant, approximately 3-5 per day. Her past medical history is significant for the PKD, Hypertension controlled with medications, The pt is upset today. She notes losing hair. Notes that she is now diabetic now She notes that she altamirano trouble bending and working in yard. She does have PKD Patient presents today for follow up visit. She complains of generalized pain which has worsened since was started Lipitor and the pain continues even after dose has been reduced to 10 mgs. She has history of Fibromyalgia which was under control with Cymbalta, which is helping somewhat now. She reports feeling swollen, weight gain & reports occasional ankle edema towards end of the day. She reports good Urinary output without symptoms of dysuria, frequency, weak stream or changes in the appearance. She denies fever, diarrhea or constipation, dyspnea on exertion or fatigue, changes in appetite or weight, dizziness or lightheadedness on standing or walking Immunosuppressants: Envarsus XR 2 mg daily, Myfortic 720 mg daily, Prednisone 5 mg Pt is off of prophylaxis Blood pressure 150/81 today in the clinic on amlodipine 10 mg daily. She was started on amiloride 5 (picked up yesterday), Kcl is to be stopped BP is better at home (124/72) Was on more medications prior to transplant. At home SBP runs in 120s as well Prospera on 0.27% on 12/25/22 LABS 03/31/23 NA 136, K3.6, CL 104, CO2 24, BUN 19, creatinine 1.26, glucose 155, CA 9.4, phosphorus 2.6, magnesium 1.5, WBC 7.6, Hgb 11.7, PLT 274 tacrolimus 6.2 Review of Systems Constitutional: Positive for unexpected weight change. Negative for activity change, fatigue and fever. HENT: Negative for congestion and sore throat. Eyes: Negative for photophobia and visual disturbance. Respiratory: Negative for cough and shortness of breath. Cardiovascular: Negative for leg swelling. Gastrointestinal: Negative for abdominal pain, constipation, diarrhea and nausea. Endocrine: Negative for polyphagia and polyuria. Genitourinary: Negative for decreased urine volume, difficulty urinating, dysuria, flank pain, frequency, hematuria and urgency. Musculoskeletal: Negative for arthralgias and joint swelling. Skin: Negative for color change, pallor, rash and wound. Allergic/Immunologic: Positive for immunocompromised state. Neurological: Negative for tremors, speech difficulty, numbness and headaches. Hematological: Negative for adenopathy. Does not bruise/bleed easily. Psychiatric/Behavioral: Negative for dysphoric mood and suicidal ideas. The patient is not nervous/anxious. OBJECTIVE: Visit Vitals BP 150/81 (BP Location: Right arm, Patient Position: Sitting, BP Cuff Size: Adult) Pulse 86 Temp 36.8 ???C (98.3 ???F) Ht 1.575 m (5' 2 ) Wt 93.4 kg (206 lb) BMI 37.68 kg/m??? OB Status Hysterectomy Smoking Status Never BSA 2.02 m??? Wt Readings from Last 3 Encounters: 04/16/23 93.4 kg (206 lb) 02/03/23 95.3 kg (210 lb) 12/25/22 92 kg (202 lb 14.4 oz) Physical Exam Constitutional: General: She is not in acute distress. Appearance: Normal appearance. She is obese. HENT: Head: Normocephalic and atraumatic. Eyes: General: No scleral icterus. Extraocular Movements: Extraocular movements intact. Cardiovascular: Rate and Rhythm: Normal rate and regular rhythm. Heart sounds: No murmur heard. Comments: Vascular exam: Left arm AV fistula (never used for dialysis) Pulmonary: Breath sounds: Normal breath sounds. No rales. Abdominal: General: There is no distension. Tenderness: There is no abdominal tenderness. There is no right CVA tenderness or left CVA tenderness. Comments: Recent renal transplant surgical incision healed, clean, dry & intact Musculoskeletal: General: No tenderness. Normal range of motion. Cervical back: Neck sup (more content not included)... [facility] 04-11-2023 Note Reviewed Mag K & cre atinine with Guillermo FIERRO and to start Amiloride 5mg every day due to low mag level 1.6. Pt notified and she verbalizes understanding. RV 04/16 [facility] 04-11-2023 Note Pt wishes to discuss Ozempic and discontinuation of Prednisone in person for RV with Dolores FIERRO. 04/14/23 RV rescheduled with clinic [facility] for 04/16/23 (pt will see her appointment time on MyChart she states). Her recent Mag 1.5 from 03/31/23 and she is complaint with 800mg BID Mag Oxide dosing. Will address in person this level with Dolores FIERRO and notify pt if dose to be adjusted and she verbalizes understanding. Advised her Bactrim DS is no longer needed due to 6 months post transplant and she agrees. [facility] 02-24-2023 Note Per dede Isabel nt notified to start taking Potassium chloride 20 meq daily. Pt verbalized understanding [facility] 02-04-2023 Note CK: 26.0. Reviewed l ab results with Dr. Bernal. No new orders at this time. [facility] 02-03-2023 Note Nephrology Transplan t Clinic Patient : Mandeep Puri; 47 y.o. Reason for Visit: History of kidney transplant. SUBJECTIVE: History Of Present Illness: 02/03/2023 Mandeep Puri is a 47 y.o. female who is status post donor kidney transplantation on 09/20/2022 . Donor/recipient CMV +/+ , EBV IgG +/+ , EBV IgM -/+ . Donor's terminal creatinine and KDPI were 8.53 and 46%, respectively. Her PRA was 55% Patient had a primary graft function and has not required dialysis post transplant. Admission serum creatinine was 3.63; Discharge serum creatinine was 3.54 In the hospital she developed bradycardia that was attributed to hypokalemia and was seen by cardiology and no interventions required. 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 Has left forearm AVF, has not been used yet. Also history of hypertension on medications, GERD, hyperuricemia/gout on Uloric, depression/anxiety, sepsis and kidney infection in 2019 and h/o COVID infection on 05/17/2020 required hospitalization for dehydration. She was making makes urine befor transplant, approximately 3-5 per day. Her past medical history is significant for the PKD, Hypertension controlled with medications, Patient presents today for follow up visit. She complains of generalized pain which has worsened since was started Lipitor and the pain continues even after dose has been reduced to 10 mgs. She has history of Fibromyalgia which was under control with Cymbalta, which is not helping now. She continues to have high blood sugars which started after Renal transplant. She reports feeling swollen, weight gain & reports occasional ankle edema towards end of the day. She reports good Urinary output without symptoms of dysuria, frequency, weak stream or changes in the appearance. She denies fever, diarrhea or constipation, dyspnea on exertion or fatigue, changes in appetite or weight, dizziness or lightheadedness on standing or walking Immunosuppressants: Envarsus XR 2 mg daily, Myfortic 720 mg daily, Prednisone 5 mg Antimicrobial prophylaxis: Bactrim DS x 3 weekly and Clotrimazole troches. Valcyte has been discontinued Blood pressure 129/77 today in the clinic on amlodipine 10 mg daily. Was on more medications prior to transplant. At home SBP runs in 120s as well Prospera on 0.27% on 12/25/22 Review of Systems Constitutional: Positive for unexpected weight change. Negative for activity change, fatigue and fever. HENT: Negative for congestion and sore throat. Eyes: Negative for photophobia and visual disturbance. Respiratory: Negative for cough and shortness of breath. Cardiovascular: Negative for leg swelling. Gastrointestinal: Negative for abdominal pain, constipation, diarrhea and nausea. Endocrine: Negative for polyphagia and polyuria. Genitourinary: Negative for decreased urine volume, difficulty urinating, dysuria, flank pain, frequency, hematuria and urgency. Musculoskeletal: Negative for arthralgias and joint swelling. Skin: Negative for color change, pallor, rash and wound. Allergic/Immunologic: Positive for immunocompromised state. Neurological: Negative for tremors, speech difficulty, numbness and headaches. Hematological: Negative for adenopathy. Does not bruise/bleed easily. Psychiatric/Behavioral: Negative for dysphoric mood and suicidal ideas. The patient is not nervous/anxious. OBJECTIVE: Visit Vitals BP 129/77 Pulse 90 Wt 95.3 kg (210 lb) BMI 38.41 kg/m??? OB Status Hysterectomy Smoking Status Never BSA 2.04 m??? Wt Readings from Last 3 Encounters: 02/03/23 95.3 kg (210 lb) 12/25/22 92 kg (202 lb 14.4 oz) 11/29/22 91.6 kg (202 lb) Physical Exam Constitutional: General: She is not in acute distress. Appearance: Normal appearance. She is obese. HENT: Head: Normocephalic and atraumatic. Eyes: General: No scleral icterus. Extraocular Movements: Extraocular movements intact. Cardiovascular: Rate and Rhythm: Normal rate and regular rhythm. Heart sounds: No murmur heard. Comments: Vascular exam: Left arm AV fistula (never used for dialysis) Pulmonary: Breath sounds: Normal breath sounds. No rales. Abdominal: General: There is no distension. Tenderness: There is no abdominal tenderness. There is no right CVA tenderness or left CVA tenderness. Comments: Recent renal transplant surgical incision healed, clean, dry & intact Musculoskeletal: General: No tenderness. Normal range of motion. Cervical back: Neck supple. No tenderness. Right lower leg: No edema. Left lower leg: No edema. Lymphadenopathy: Cervical: No cervical adenopathy. Skin: Coloration: Skin is not jaundiced or pale. Findings: No erythema, lesion or rash. Neurological: General: No focal deficit present. Mental Status: She is alert and oriented to person, place, and time. Sensory: No sensory deficit. Motor: No weakness. Ps (more content not included)... [facility] 01-09-2023 Note Tac:4.4. Reviewed la b results with Dr. Bernal. New order to increase Envarsus by 0.5mg daily. New daily dose will be Envarsus 2mg. Patient verbalizes understanding of medication change and will repeat tac level in a week. [facility] 01-01-2023 Note Tac: 10. Reviewed la b results with Dr. Bernal. New order to decrease Envarsus by 0.5mg daily. New daily dose will be Envarsus 1.5mg. Patient verbalizes understanding of medication change and repeat lab in a week. [facility] 12-25-2022 Note Patient seen in clin ic today with Dr. Pa, to decrease Envarsus by 1 mg daily, new dose will now be 2 mg daily. Voiced understanding of medication change and will repeat level in about a week. [facility] 12-25-2022 Note 12/25/2022 Chief complaint: Kidney transplant follow-up PCP: Ming Espinoza MD Txp Referring: Yaneth Muñoz Preferred Pharmacy: [facility] [address] [place] [address] [place] [address] [facility] [address] [facility]/pharmacy #[id number] OF [address] [address] Subjective Visit Vitals BP 134/88 (BP Location: Right arm, Patient Position: Sitting, BP Cuff Size: Large adult) Pulse 88 Temp 36.8 ???C (98.2 ???F) (Oral) Wt 92 kg (202 lb 14.4 oz) BMI 37.11 kg/m??? OB Status Hysterectomy Smoking Status Never BSA 2.01 m??? Allergies Allergen Reactions Allopurinol Effexor [Venlafaxine] Hives Venlafaxine Hcl Other reaction(s): bad side effect Immunization History Administered Date(s) Administered Angelantoni Sars-Cov-2 Vaccination 10/13/2021 Patient Active Problem List Diagnosis Anxiety COVID-19 Depressive disorder Gastroesophageal reflux disease Gout Hypertension Multiple congenital cysts of kidney Stage 4 chronic kidney disease (CMS/HCC) Encounter for aftercare following kidney transplant Immunosuppression ([facility]) Hyperuricemia Metabolic acidosis Bilateral lower extremity edema Hypokalemia Immunosuppressive management encounter following kidney transplant Dysuria Hypomagnesemia Electrolyte imbalance History of gout Family History Problem Relation Name Age of Onset Fibromyalgia Mother Heart disease Father Hypertension Sister Polycystic kidney disease Sister Hypertension Brother Polycystic kidney disease Brother Social History Tobacco Use Smoking status: Never Smokeless tobacco: Never Substance Use Topics Alcohol use: Not Currently Drug use: Never Past Medical History: Diagnosis Date Anxiety Chronic kidney disease, stage 4 (severe) (CMS/HCC) COVID-19 Depressive disorder Fibromyalgia Gastroesophageal reflux disease Gout Hypertension Multiple congenital cysts of kidney Past Surgical History: Procedure Laterality Date BREAST SURGERY SECTION, LOW TRANSVERSE HYSTERECTOMY OB History No obstetric history on file. Travel Screening No screening recorded since 09/23/22 0908 Travel History Travel since 08/25/22 No documented travel since 08/25/22 [facility] Mandeep Puri is a 47 y.o. female who End-stage renal disease secondary to Polycystic Kidneys who underwent donor kidney transplant on 09/20/2022 (Kidney). She had good urine output postoperatively and did not require dialysis following transplant. She did not have delayed graft function. She was not previously on dialysis prior to transplant. Patient comes to the clinic today for her follow up visit. Denies fever/chills/nausea/vomiting/diarrhea/ chest pain/shortness of breath. Her main She is currently taking Sodium bicarbonate 650 mg twice daily for metabolic acidosis. She is on Uloric 20 mg daily for hyperuricemia. She also takes Magnesium oxide 800 mg twice daily for hypomagnesemia. Review of systems: A 10 point review of systems was performed and is otherwise negative unless included in the history or the assessment and plan Constitutional: In no acute distress Psychiatric: Normal affect and mood HEENT: No scleral icterus Respiratory: Not laboring to breathe Cardiovascular: No obvious cyanosis of the extremities Integumentary: No jaundice Neurologic: Grossly nonfocal Extremities: No significant bilateral lower extremity edema Abdomen: RLQ incision c/d/I, no cellulitis/hernia Donor ABO: O Donor Labs: CMV: Positive HBC: Negative HCV: Negative Assessment/Plan Patient is a 47 year-old female, 3 months status post donor renal transplant. During the hospital admission she did develop hypokalemia accompanied by bradycardia, was resolved after potassium repletion. She also had a couple occurrences of hyperglycemia, she was discharged with diabetic testing supplies to monitor blood sugars at home. She was not previously on dialysis prior to transplant. Creatinine at discharge 3.75, today 1.33. Recent Prospera drawn on 11/10/22 and result was 0.54%. For immunosuppression she received Thymoglobulin, two doses given as inpatient and two doses given as outpatient, those are now complete. For maintenance immunosuppression she is taking Envarsus XR 3 mg daily, tac level today is 11.4, to decrease dose to 2 mg daily. Continue Myfortic 720 mg twice daily and decrease Prednisone from 10 mg to 5 mg daily. For immunoprophylaxis she is taking Clotrimazole 10 mg four times daily, Bactrim three times per week and Valcyte 450 mg daily. Can stop Valcyte. CMV status is donor positive/recipient positive. Hypertension: Continue Amlodpine 10 mg daily, reports blood pressures running good at home. Hyperlipide (more content not included)... [facility] 07-30-2022 Evaluation note Encounter Date Diagnosis Assessment [...] She has gout and follows with a hand pattern marker. She takes Urolic and denies any recent gout flare Jul, Metabolic acidemia, unspecified (ICD-10 - P19.9) She has metabolic acidosis due to the advanced CKD. Continue oral Sodium Bicarbonate [facility] Other 09-28-2022 Evaluation note* Encounter Date Diagnosis [...] disease, unspecified CKD stage (ICD-10 - N18.9) [facility] Other 09-13-2022 Procedure [facility]08-29-2022 Evaluation note* Encounter Date Diagnosis Assessment Notes Treatment Notes Treatment Clinical Notes May, Pre-op testing (ICD-10 - Z01.818) [facility] Other 08-25-2022 Evaluation note* Encounter Date Diagnosis [...] will schedule this in the near future. [facility] Other 07-28-2022 Evaluation note* Encounter Date Diagnosis [...] explained to her the potential need of REGIONAL PROPERTY MANAGER in future. I discussed with her different options of REGIONAL PROPERTY MANAGER including PD, HTN renal transplant. I provide [...] stephens s gout and follows with a hand pattern marker. She takes Urolic and denies any recent gout flare [facility] Other 07-26-2022 Evaluation note* Encounter Date Diagnosis [...] care provider if no improvement of symptoms. [facility] Other 05-24-2022 Evaluation note* Encounter Date Diagnosis Assessment Notes Treatment Notes Treatment Clinical Notes February, Screening for colon cancer (ICD-10 - Z12.11) [facility] Other 03-03-2022 Evaluation note* Encounter Date Diagnosis [...] explained to her the potential need of REGIONAL PROPERTY MANAGER in future. I discussed with her different options of REGIONAL PROPERTY MANAGER including PD, HTN renal transplant. I provide [...] She has gout and follows with a hand pattern marker. She takes Urolic and denies any recent gout flare [facility] Other 06-25-2021 NotePatient Outreach (NEPHMN) MANDEEP PURI ([id number]) 1975 F Date Time Provider Department 03/30/21 PERRI BARRETT During your visit today, we recorded the following information about you: Allergies As of Date: 03/30/2021 Noted Allergy Reaction ALLOPURINOL 08/02/2019 4 - Hives Date Reviewed: 03/30/2021 Reviewed by: Perri Barrett MD - Fully Assessed Visit Diagnosis:Screening for genitourinary condition [Z13.89] Order(s):URINALYSIS, DIPSTICK ONLY [SQUA] Order #: [id number]. #:[id number] Prescriptions as of 03/30/2021 Sig: DULOXETINE 60 [...] dominant polycystic kidney dis*03/30/2021 Encounter Status:Closed by [facility] on 04/02/21[facility] 03-30-2021 NoteHNO ID: [id number] Author: Perri Barrett MD Service: ? Author Type: Physician Type: Progress Notes Filed: 03/30/2021 10:25 AM Note Text: Mrs. 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 [employer] TEA: occas SODA:occas ALCOHOL:no TOBACCO USE: [...] gm 10) MTOR ? [facility] general Narrative - Reported * Type Description Date Medical History HTN (hypertension) Medical History Anxiety Medical History polycystic kidneys Medical History COVID 05-17-2020 Surgical History C section Surgical History BREAST REDUCTION Hospitalization History child Hospitalization History KIDNEY INFECTION 07/2019 Hospitalization History COVID AND DEHYDRATION [facility] Other 08-12-2020 History general Narrative - Reported* Type Description Date Medical History HTN (hypertension) Medical History Anxiety Medical History polycystic kidneys Medical History COVID 05-17-2020 Medical History end stage renal disease Surgical History C section Surgical History BREAST REDUCTION Surgical History colonoscopy 04/01/2022 Surgical History wisdom teeth 03/24/2022 Hospitalization History child Hospitalization History KIDNEY INFECTION 07/2019 Hospitalization History COVID AND DEHYDRATION [facility] Other 08-12-2020 History general Narrative - Reported* [...] INFECTION 07/2019 Hospitalization History COVID AND DEHYDRATION [facility] Other 08-12-2020 History general Narrative - Reported* [...] INFECTION 07/2019 Hospitalization History COVID AND DEHYDRATION [facility] Other Evaluation noteNo assessment information available [facility] Work Phone: Evaluation noteNo [facility] [employer] Other Assessments Diagnosis Acute sepsis (HCC)- Primary Acute cystitis without hematuria Acute cystitis Chronic renal failure, stage 4 (severe) (HCC) Polycystic kidney disease Polycystic kidney, unspecified type Advance Directives No Advanced Directives Records FoundDocuments on File Type Date Recorded Patient Child Nutrition Director Expl anation Advance Directives and Living Will Power of Window Systems Administrator Advance Directive Response Recorded Date/ Time Advance [...] content) DATE CREATED AUTHOR 08/04/2019 Marielena Castillo [facility]ital DATE CREATED AUTHOR AUTHOR'S ORGANIZ ATION 04/28/2020 [facility] DATE CREATED AUTHOR AUTHOR'S ORGANIZ ATION 09/12/2020 [facility] DATE CREATED AUTHOR AUTHOR'S ORGANIZ ATION 11/07/2021 [facility] DATE CREATED AUTHOR AUTHOR'S ORGANIZ ATION 02/27/2022 [facility] DATE CREATED AUTHOR AUTHOR'S ORGANIZ ATION 08/04/2022 [facility] DATE CREATED AUTHOR AUTHOR'S ORGANIZ ATION 10/14/2023 [facility] dical [facility] DATE CREATED AUTHOR AUTHOR'S ORGANIZ ATION 11/14/2023 [facility] DATE CREATED AUTHOR AUTHOR'S ORGANIZ ATION 12/24/2023 [facility] Care Teams (unrecognized sec tion and [...] Ming Espinoza , Primary Care Provider Active Stanley Forman PA-C Emergency Provider Active Team Status: Inactive Member Role Status Dates Ming Espinoza , Primary Care Provider Active Blake Hinojosa DO Attending Provider Active Team Status: Inactive Member Role Status Dates Ming Espinoza , Primary Care Provider Active Start: November 06, [...] BE BASED ON THE PRIMARY CLINICAL RECORDS. [employer] provides no warranty or guarantee of the accuracy or completeness of information in this document.
[2024-01-28 07:28] LABS: Basophils Percent Auto 0.5 % (0.2-2.0); Eosinophils Absolute Auto 0.2 10^3/uL (0.0-0.7); Eosinophils Percent Auto 2.1 % (0.9-7.0); Hematocrit 34.6 % (36.0-48.0); Hemoglobin 11.3 g/dL (12.0-16.0); Immature Granulocytes Abs Auto 0.04 10^3/uL (0.00-0.03); Immature Granulocytes Pct Auto 0.5 % (0.0-0.5); Lymphocytes Absolute Auto 1.2 10^3/uL (1.2-3.8); Lymphocytes Percent Auto 15.3 % (20.5-60.0); Mean Corpuscular HGB Conc 32.7 g/dL (29.9-35.2); Mean Corpuscular Hemoglobin 28.2 pg (26.7-34.0); Mean Corpuscular Volume 86.3 fL (81.0-99.0); Mean Platelet Volume 8.5 fL (9.5-13.5); Monocytes Absolute Auto 0.5 10^3/uL (0.3-0.8); Monocytes Percent Auto 6.8 % (1.7-12.0); Neutrophils Absolute Auto 5.8 10^3/uL (1.4-6.5); Neutrophils Percent Auto 74.8 % (43.0-75.0); Platelet Count 311 10^3/uL (150-450); Red Blood Count 4.01 10^6/uL (4.20-5.40); Red Cell Distribution Width 14.2 % (11.0-15.0); White Blood Count 7.7 10^3/uL (4.0-11.0)
[2024-01-28 07:50] LABS: Magnesium 1.7 mg/dL (1.8-2.4); Phosphorus 3.9 mg/dL (2.6-4.7); Uric Acid 4.1 mg/dL (2.6-6.0)
== END 2024-01-28 07:07 | disposition home or self-care (01) ==
LOC: LAB 07:07
PROVIDERS: PCP Internal Medicine; Visit Provider Internal Medicine Nephrology
DX: Z94.0 Kidney transplant status (principal)
CPT/HCPCS: 36415; 80197; 83735; 84100; 84550; 85025

== ENCOUNTER 2024-02-27 06:57 | Outpatient (OUT) | payer OTHER, SELFPAY ==
--- OUTSIDE RECORDS SUMMARY | 2024-02-27 07:01 | XMS_ITS | CCD ---
Author Organization [facility] Care Team Providers Care Environmental Education Specialist Name Role Phone Ming Espinoza Primary Care Provider VIDAL MADRIGAL Attending Unavailable MING ESPINOZA Primary Care Unavailable Toni, Yaneth Unavailable Shabbir oJnes Unavailable Dipika Stisnon Unavailable Jesus Parham Unavailable DO Ming Espinoza Primary Care Provider MD Shabbir Jones Attending Provider MD Yaneth Muñoz Attending Provider [phone] MD Jesus Parham Attending Provider Estefania Vo Unavailable DO Ming Espinoza Primary Care Provider EB Forman Emergency Provider DO Blake Hinojosa Attending Provider ANGELAC, DR ZARAGOZA Admitting Unavailable DR MING ESPINOZA Primary Care Unavailable MISC, DR ZARAGOZA Attending Unavailable MISC, DR ZARAGOZA Consulting Unavailable TONI, YANETH Admitting Unavailable DR MING ESPINOZA Primary Care Unavailable DR MING ESPINOZA Consulting Unavailable TONIYANETH Attending Unavailable TONI, YANETH Consulting Unavailable DR MING ESPINOZA Primary Care Unavailable TONIYANETH Attending Unavailable TONI, YANETH Consulting Unavailable TONI, YAENTH Admitting Unavailable TONI, YANETH Admitting Unavailable DR [...] MING ESPINOZA Referring Unavailable DO Ming Espinoza [facility] Provider [phone] MD Perri Ceja Attending Provider Ming Espinoza [facility] Unavailable Blake Hinojosa Referring Unavailable Self, Referral Admitting Unavailable Self, Referral Attending Unavailable Ming Espinoza Primary [facility] Unavailable Perri Ceja Admitting Unavailable Perri Ceja Attending Unavailable SUJIT BERNAL Attending Unavailable AGUILA PA Attending Unavailable MUNIRA PHAN Attending Unavailable Allergies Allergy Classification Reported Allergen(s) Allergy Type Date of Onset Reaction(s) Facility (12 sources) Allopurinol; Translations: [ALLOPURINOL] Drug Allergy 08-02-2019 [place] (7 sources) venlafaxine; Translations: [venlafaxine] Drug Allergy 06-05-2022 [facility] (1 source) Allopurinol Drug Allergy 01-10-2023 [facility] Repository (1 source) venlafaxine; Translations: [VENLAFAXINE HCL] Drug Allergy 07-10-2021 [facility] Repository Medications Current Medications Medication Drug Class(es) Dates Sig (Normalized) Sig (Original) amoxicillin 875 mg / clavulanate 125 mg oral tablet (2 sources) Penicillin-class Antibacterial Start: 04-30-2022 take 1 tablet by mouth every twelve hours Amoxicillin-Pot Clavulanate 875-125 MG 1 tablet Orally every 12 hrs for 7 days Apr, Active {1 (ascorbic acid 7540 MG / polyethylene glycol 3350 21253 MG / potassium chloride 1200 MG / sodium ascorbate 26146 MG / sodium chloride 3200 MG Powder for Oral Solution) / 1 (polyethylene glycol 3350 062391 MG / potassium chloride 1000 MG / sodium chloride 2000 MG / sodium sulfate 9000 MG Powder for Oral Solution) } Pack [Plenvu] (1 source) Osmotic Laxative, Vitamin C Start: 02-26-2022 Plenvu 140 GM dose 1 pouch at 4pm, dose 2 pouch A & B at 11pm Orally twice a day for 1 days BIN:[id number] PCN: [id number] GROUP:[id number] ID:[id number] February, Active cetirizine hydrochloride 10 mg oral [...] PO Daily August 01, 2019 11:00pm calcitriol 0.96137 mg oral capsule (5 sources) Vitamin D3 [...] D2 Compound Start: 01-20-2019 End: 08-02-2019 take 16457 [IU] by mouth every month Ergocalciferol (Vitamin D2) Discontinued 26047 UNIT PO every month January 19, 2019 [...] Translations: [Chronic renal failure, stage 4 (severe) ([facility])] Chronic Acute and unspecified renal failure (5 [...] 05-02-2022 Episodic Other aftercare (2 sources) 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; Translations: [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] Onset: 01-17-2023 Episodic Other screening for suspected conditions (not mental disorders or infectious disease) (1 source) Encounter for screening for malignant neoplasm of colon Onset: 02-26-2022 Resolved: 02-26-2022 Episodic Otitis media and related conditions (1 source) Otitis media, unspecified, bilateral Onset: 04-30-2022 Resolved: 04-30-2022 Episodic Results Test Name Value Interpretation Reference Range Facility Follow-Upon 12-23-2023 Follow-Up [id number] Antonio Puri i 1975 F Date Provider Department Center 12/23/2023 124-MUNIRA PHAN TXP None Family History Problem Relation Age of Onset Fibromyalgia Mother Heart disease Father Hypertension Sister Polycystic kidney disease Sister Hypertension Brother Polycystic kidney disease Brother Family Status - Relation Status Age at Mother Father Sister Brother Level of Service:22492 [place] OFFICE/OUTPATIENT ESTABLISHED MOD MDM 30 MIN Reason for Visit and Comments: Kidney Follow-up [] - Pt has questions about her lab work. Normal [facility] [place] Antinuclear Antibodieson 11-06-2023 Antinuclear Abs, IFA Negative Normal . [facility] Comment on above: Result Comment: Nega tive <1:80 Borderline 1:80 Positive >1:80 ICAP nomenclature: AC-0 For more information about Hep-2 cell patterns use ANApatterns.org, the official website for the International Consensus on Antinuclear Antibody (PAPITO) Patterns (ICAP). Performed at: - [facility] [address] [id number] Lieutenant Firefighter: Gabriel Whitman PhD, Phone: [phone] PERFORMED BY: [place] [address] PATHOLOGIST RADIO OPERATOR GROUND ANAHY MCKEE M.D. Performed By: #### C K, CRP, ESR, CBC, CMP #### [address] #### P[place]IT[place] #### [facility] , Alanine aminotransferase [En zymatic activity/volume] in Serum or PlasmaOrdered By: Perri Ceja on 11-06-2023 ALT [Catalytic activity/Vol] 20 U/L 7-52 [facility] Albumin [Mass/volume] in Ser um or Plasma by Bromocresol green (BCG) dye binding methoOrdered By: Perri Ceja on 11-06-2023 Albumin BCG dye [Mass/Vol] 4.7 g/dL 3.5-5.7 [facility] Alkaline phosphatase [Enzyma tic activity/volume] in Serum or PlasmaOrdered By: Perri Ceja on 11-06-2023 ALP [Catalytic activity/Vol] 96 U/L 34-104 [facility] Aspartate aminotransferase [ Enzymatic activity/volume] in Serum or PlasmaOrdered By: Perri Ceja on 11-06-2023 AST [Catalytic activity/Vol] 16 U/L 13-39 [facility] Basophils Auto (Bld) [#/Vol] Ordered By: Perri Ceja on 11-06-2023 Basophils (Bld) [#/Vol] 0.1 10*3/uL 0.0-0.2 [facility] Basophils/100 WBC Auto (Bld) Ordered By: Perri Ceja on 11-06-2023 Basophils/100 WBC (Bld) 0.7 % . [facility] Bilirubin.total [Mass/volume ] in Serum or PlasmaOrdered By: Perri Ceja on 11-06-2023 Bilirubin [Mass/Vol] 0.4 mg/dL 0.3-1.0 [facility] C reactive protein [Mass/vol ume] in Serum or PlasmaOrdered By: Perri Ceja on 11-06-2023 CRP [Mass/Vol] 2.0 mg/dL 0.0-0.5 [facility] C-Reactive Proteinon 024 C-Reactive Protein 2.0 mg/dL High 0.0-0.5 [facility] Comment on above: Result Comment: PERF ORMED BY: [place] [address] PATHOLOGIST RADIO OPERATOR GROUND ANAHY MCKEE M.D. Performed By: #### C K, CRP, ESR, CBC, CMP #### [facility] [address] [place] [address] #### P[place]ITO #### [facility] , Calcium [Mass/volume] in Ser um or PlasmaOrdered By: Perri Ceja on 11-06-2023 Calcium [Mass/Vol] 10.3 mg/dL 8.6-10.3 [facility] Carbon dioxide, total [Moles /volume] in Serum or PlasmaOrdered By: Perri Ceja on 11-06-2023 CO2 [Moles/Vol] 26.1 mmol/L 21.0-31.0 [facility] Chloride [Moles/volume] in S aislinn or PlasmaOrdered By: Perri Ceja on 11-06-2023 Chloride [Moles/Vol] 104 mmol/L 98-107 [facility] Complete Blood Count Auto Di ffon 11-06-2023 Basophils (Bld) [#/Vol] 0.1 10*3/uL Normal 0.0-0.2 [facility] Comment on above: Performed By: #### C K, CRP, ESR, CBC, CMP #### [facility] [address] [place] [address] [place] #### [place] #### [facility] , Basophils/100 WBC (Bld) 0.7 % Normal . [facility] Comment on above: Performed By: #### C K, CRP, ESR, CBC, CMP #### [facility] [address] [place] [address] [place] #### [place] #### [facility] , Eosinophils (Bld) [#/Vol] 0.3 10*3/uL Normal 0.0-0.45 [facility] Comment on above: Performed By: #### C K, CRP, ESR, CBC, CMP #### [address] #### [place] #### [facility] , Eosinophils/100 WBC (Bld) 3.0 % Normal . [facility] Comment on above: Performed By: #### C K, CRP, ESR, CBC, CMP #### [place] [address] [place] #### P[place]O #### [facility] , Erythrocyte distribution width (RBC) [Ratio] 15.3 % Normal 11.9-15.3 [facility] Comment on above: Performed By: #### C K, CRP, ESR, CBC, CMP #### [address] #### [place] #### [facility] , Hematocrit (Bld) [Volume fraction] 38.9 % Normal 34.0-46.4 [facility] Comment on above: Performed By: #### C K, CRP, ESR, CBC, CMP #### [place] [address] [place] #### [place] #### [facility] , Hemoglobin (Bld) [Mass/Vol] 13.1 g/dL Normal 11.8-15.4 [facility] Comment on above: Performed By: #### C K, CRP, ESR, CBC, CMP #### [place] [address] [place] #### P[place]O #### [facility] , Lymphocytes (Bld) [#/Vol] 1.5 10*3/uL Normal 1.00-4.8 [facility] Comment on above: Performed By: #### C K, CRP, ESR, CBC, CMP #### [address] #### [place] #### [facility] , Lymphocytes/100 WBC (Bld) 17.6 % Normal . [facility] Comment on above: Performed By: #### C K, CRP, ESR, CBC, CMP #### [address] #### [place] #### [facility] , MCH (RBC) [Entitic mass] 28.4 pg Normal 24.7-34.3 [facility] Comment on above: Performed By: #### C K, CRP, ESR, CBC, CMP #### [address] #### [place] #### [facility] , MCV (RBC) [Entitic vol] 84.6 fL Normal 80-100 [facility] Comment on above: Performed By: #### C K, CRP, ESR, CBC, CMP #### [address] #### [place] #### [facility] , Mean Corpuscular HGB Conc 33.6 g/dL Normal 32.0-35.0 [facility] Comment on above: Performed By: #### C K, CRP, ESR, CBC, CMP #### [place] [address] [place] #### P[place]O #### [facility] , Monocytes (Bld) [#/Vol] 0.6 10*3/uL Normal 0.0-0.8 [facility] Comment on above: Performed By: #### C K, CRP, ESR, CBC, CMP #### [place] [address] [place] #### P[place]O #### [facility] , Monocytes/100 WBC (Bld) 6.6 % Normal . [facility] Comment on above: Performed By: #### C K, CRP, ESR, CBC, CMP #### [place] [address] [place] #### [place] #### [facility] , Neutrophils (Bld) [#/Vol] 6.3 10*3/uL Normal 1.8-7.7 [facility] Comment on above: Performed By: #### C K, CRP, ESR, CBC, CMP #### [place] [address] [place] #### P[place] #### [facility] , Neutrophils/100 WBC (Bld) 72.1 % Normal . [facility] Comment on above: Performed By: #### C K, CRP, ESR, CBC, CMP #### [address] #### [place] #### [facility] , NRBC% 0.1 /100{WBC} Normal 0-0.5 [facility] Comment on above: Performed By: #### C K, CRP, ESR, CBC, CMP #### [place] [address] [place] #### [place] #### [facility] , Platelet mean volume (Bld) [Entitic vol] 6.9 fL Normal 6.3-10.7 [facility] Comment on above: Performed By: #### C K, CRP, ESR, CBC, CMP #### [facility] [address] [place] [address] [place] #### [place] #### [facility] , Platelets (Bld) [#/Vol] 393 10*3/uL Normal 150-450 [facility] Comment on above: Performed By: #### C K, CRP, ESR, CBC, CMP #### [facility] [address] [place] [address] [place] #### [place]O #### [facility] , RBC (Bld) [#/Vol] 4.60 10*6/uL Normal 3.60-5.00 [facility] Comment on above: Performed By: #### C K, CRP, ESR, CBC, CMP #### [facility] [address] [place] [address] [place] #### P[place]O #### [facility] , WBC (Bld) [#/Vol] 8.8 10*3/uL Normal 3.8-11.6 [facility] Comment on above: Performed By: #### C K, CRP, ESR, CBC, CMP #### [address] #### [place] #### [facility] , Comprehensive Metabolic Pane jonathan 11-06-2023 Albumin [Mass/Vol] 4.7 g/dL Normal 3.5-5.7 [facility] Comment on above: Performed By: #### C K, CRP, ESR, CBC, CMP #### [address] #### [place] #### [facility] , Albumin/Globulin [Mass ratio] 1.6 {ratio} Normal [facility] Comment on above: Performed By: #### C K, CRP, ESR, CBC, CMP #### [place] [address] [place] #### [place]O #### [facility] , ALP [Catalytic activity/Vol] 96 U/L Normal 34-104 [facility] Comment on above: Performed By: #### C K, CRP, ESR, CBC, CMP #### [place] [address] [place] #### P[place]O #### [facility] , ALT [Catalytic activity/Vol] 20 U/L Normal 7-52 [facility] Comment on above: Performed By: #### C K, CRP, ESR, CBC, CMP #### [facility] [address] [place] [address] [place] #### [place] #### [facility] , Anion gap [Moles/Vol] 12.7 mmol/L Normal 6.0-15.0 [facility] Comment on above: Performed By: #### C K, CRP, ESR, CBC, CMP #### [place] [address] [place] #### P[place]O #### [facility] , AST [Catalytic activity/Vol] 16 U/L Normal 13-39 [facility] Comment on above: Performed By: #### C K, CRP, ESR, CBC, CMP #### [place] [address] [place] #### [place]O #### [facility] , Bilirubin [Mass/Vol] 0.4 mg/dL Normal 0.3-1.0 [facility] Comment on above: Performed By: #### C K, CRP, ESR, CBC, CMP #### [place] [address] [place] #### P[place]O #### [facility] , Calcium [Mass/Vol] 10.3 mg/dL Normal 8.6-10.3 [facility] Comment on above: Performed By: #### C K, CRP, ESR, CBC, CMP #### [place] [address] [place] #### [place]O #### [facility] , Chloride [Moles/Vol] 104 mmol/L Normal 98-107 [facility] Comment on above: Performed By: #### C K, CRP, ESR, CBC, CMP #### [facility] [address] [place] [address] [place] #### [place]O #### [facility] , CO2 [Moles/Vol] 26.1 mmol/L Normal 21.0-31.0 [facility] Comment on above: Performed By: #### C K, CRP, ESR, CBC, CMP #### [facility] [address] [place] [address] [place] #### [place]O #### [facility] , Creatinine [Mass/Vol] 1.17 mg/dL Normal 0.60-1.20 [facility] Comment on above: Performed By: #### C K, CRP, ESR, CBC, CMP #### [place] [address] [place] #### [place] #### [facility] , GFR/1.73 sq M.predicted MDRD (S/P/Bld) [Vol rate/Area] 57.919 mL/min/{1.73_m2} Normal [facility] Comment on above: Performed By: #### C K, CRP, ESR, CBC, CMP #### [place] [address] [place] #### [place]O #### [facility] , Globulin (S) [Mass/Vol] 3.0 g/dL Normal [facility] Comment on above: Performed By: #### C K, CRP, ESR, CBC, CMP #### [place] [address] [place] #### [place]O #### [facility] , Glucose [Mass/Vol] 91 mg/dL Normal 70-100 [facility] Comment on above: Result Comment: [place] Glucose Reference Range is dependent on time and content of last meal. Glucose of more than 200 mg/dL in a nonstressed, ambulatory subject supports the diagnosis of Diabetes Mellitus. ADA recommended reference range Performed By: #### C K, CRP, ESR, CBC, CMP #### [place] [address] [place] #### [place]O #### [facility] , Potassium [Moles/Vol] 3.8 mmol/L Normal 3.5-5.1 [facility] Comment on above: Performed By: #### C K, CRP, ESR, CBC, CMP #### [facility] [address] [place] [address] [place] #### [place] #### [facility] , Protein [Mass/Vol] 7.7 g/dL Normal 6.4-8.9 [facility] Comment on above: Performed By: #### C K, CRP, ESR, CBC, CMP #### [place] [address] [place] #### P[place]O #### [facility] , Sodium [Moles/Vol] 139 mmol/L Normal 136-145 [facility] Comment on above: Performed By: #### C K, CRP, ESR, CBC, CMP #### [facility] [address] [place] [address] [place] #### [place]O #### [facility] , Urea nitrogen [Mass/Vol] 17 mg/dL Normal 7-25 [facility] Comment on above: Performed By: #### C K, CRP, ESR, CBC, CMP #### [address] #### [place] #### [facility] , Creatine Kinaseon 11-06-2023 CK [Catalytic activity/Vol] 30 U/L Normal 30-223 [facility] Comment on above: Result Comment: PERF ORMED BY: [place] [address] PATHOLOGIST RADIO OPERATOR GROUND ANAHY MCKEE M.D. Performed By: #### C K, CRP, ESR, CBC, CMP #### [place] [address] [place] #### [place] #### [facility] , Creatine kinase [Enzymatic a ctivity/volume] in Serum or PlasmaOrdered By: Perri Ceja on 11-06-2023 CK [Catalytic activity/Vol] 30 U/L 30-223 [facility] Creatinine [Mass/volume] in Serum or PlasmaOrdered By: Perri Ceja on 11-06-2023 Creatinine [Mass/Vol] 1.17 mg/dL 0.60-1.20 [facility] Eosinophils Auto (Bld) [#/Vo l]Ordered By: Perri Ceja on 11-06-2023 Eosinophils (Bld) [#/Vol] 0.3 10*3/uL 0.0-0.45 [facility] Eosinophils/100 WBC Auto (Bl d)Ordered By: Perri Ceja on 11-06-2023 Eosinophils/100 WBC (Bld) 3.0 % . [facility] Erythrocyte Sedimentation Ra mathieu 11-06-2023 ESR (Bld) [Velocity] 49 mm/h High 0-19 [facility] Comment on above: Result Comment: PERF ORMED BY: [place] [address] PATHOLOGIST RADIO OPERATOR GROUND ANAHY MCKEE M.D. Performed By: #### C K, CRP, ESR, CBC, CMP #### [place] [address] [place] #### [place] #### [facility] , Erythrocyte distribution wid th Auto (RBC) [Ratio]Ordered By: Perri Ceja on 11-06-2023 Erythrocyte distribution width (RBC) [Ratio] 15.3 % 11.9-15.3 [facility] Erythrocyte sedimentation ra te by Photometric methodOrdered By: Perri Ceja on 11-06-2023 ESR Photometric method (Bld) [Velocity] 49 mm/hr 0-19 [facility] Globulin Calc (S) [Mass/Vol] Ordered By: Perri Ceja on 11-06-2023 Globulin (S) [Mass/Vol] 3.0 g/dL [facility] Glucose [Mass/volume] in Ser um or PlasmaOrdered By: Perri Ceja on 11-06-2023 Glucose [Mass/Vol] 91 mg/dL 70-100 [facility] Comment on above: ADA recommended refe rence rangeRandom Glucose Reference Range is dependent on time and content of last meal. Glucose of more than 200 mg/dL in a nonstressed, ambulatory subject supports the diagnosis of Diabetes Mellitus. Hematocrit Auto (Bld) [Volum e fraction]Ordered By: Perri Ceja on 11-06-2023 Hematocrit (Bld) [Volume fraction] 38.9 % 34.0-46.4 [facility] Hemoglobin [Mass/volume] in BloodOrdered By: Perri Ceja on 11-06-2023 Hemoglobin (Bld) [Mass/Vol] 13.1 g/dL 11.8-15.4 [facility] Leukocytes [#/volume] correc noah for nucleated erythrocytes in Blood by Automated counOrdered By: Perri Ceja on 11-06-2023 WBC corrected for nucl RBC Auto (Bld) [#/Vol] 8.8 10*3/uL 3.8-11.6 [facility] Lymphocytes Auto (Bld) [#/Vo l]Ordered By: Perri Ceja on 11-06-2023 Lymphocytes (Bld) [#/Vol] 1.5 10*3/uL 1.00-4.8 [facility] Lymphocytes/100 WBC Auto (Bl d)Ordered By: Perri Ceja on 11-06-2023 Lymphocytes/100 WBC (Bld) 17.6 % . [facility] MCH Auto (RBC) [Entitic mass ]Ordered By: Perri Ceja on 11-06-2023 MCH (RBC) [Entitic mass] 28.4 pg 24.7-34.3 [facility] MCHC Auto (RBC) [Mass/Vol]Or dered By: Perri Ceja on 11-06-2023 MCHC (RBC) [Mass/Vol] 33.6 g/dL 32.0-35.0 [facility] MCV Auto (RBC) [Entitic vol] Ordered By: Perri Ceja on 11-06-2023 MCV (RBC) [Entitic vol] 84.6 fL 80-100 [facility] Monocytes Auto (Bld) [#/Vol] Ordered By: Perri Ceja on 11-06-2023 Monocytes (Bld) [#/Vol] 0.6 10*3/uL 0.0-0.8 [facility] Monocytes/100 WBC Auto (Bld) Ordered By: Perri Ceja on 11-06-2023 Monocytes/100 WBC (Bld) 6.6 % . [facility] Neutrophils Auto (Bld) [#/Vo l]Ordered By: Perri Ceja on 11-06-2023 Neutrophils (Bld) [#/Vol] 6.3 10*3/uL 1.8-7.7 [facility] Neutrophils/100 WBC Auto (Bl d)Ordered By: Perri Ceja on 11-06-2023 Neutrophils/100 WBC (Bld) 72.1 % . [facility] No Panel InformationOrdered By: Perri Ceja on 11-06-2023 Estimated GFR (CKD-EPI) 57.919 mL/Min [facility] Creatinine Clearance (Chem N/A [facility] Nucleated erythrocytes [Pres ence] in Blood by Automated countOrdered By: Perri Ceja on 11-06-2023 Nucleated RBC Auto Ql (Bld) 0.1 /100{WBC} 0-0.5 [facility] Platelet mean volume Auto (B ld) [Entitic vol]Ordered By: Perri Ceja on 11-06-2023 Platelet mean volume (Bld) [Entitic vol] 6.9 fL 6.3-10.7 [facility] Platelets Auto (Bld) [#/Vol] Ordered By: Perri Ceja on 11-06-2023 Platelets (Bld) [#/Vol] 393 10*3/uL 150-450 [facility] Potassium [Moles/volume] in Serum or PlasmaOrdered By: Perri Ceja on 11-06-2023 Potassium [Moles/Vol] 3.8 mmol/L 3.5-5.1 [facility] Protein [Mass/volume] in Ser um or PlasmaOrdered By: Perri Ceja on 11-06-2023 Protein [Mass/Vol] 7.7 g/dL 6.4-8.9 [facility] RBC Auto (Bld) [#/Vol]Ordere d By: Perri Ceja on 11-06-2023 RBC (Bld) [#/Vol] 4.60 10*6/uL 3.60-5.00 [facility] Serum or plasma albumin/glob ulin mass ratioOrdered By: Perri Ceja on 11-06-2023 Albumin/Globulin [Mass ratio] 1.6 {ratio} [facility] Serum or plasma anion gap de terminationOrdered By: Perri Ceja on 11-06-2023 Anion gap [Moles/Vol] 12.7 mmol/L 6.0-15.0 [facility] Sodium [Moles/volume] in Ser um or PlasmaOrdered By: Perri Ceja on 11-06-2023 Sodium [Moles/Vol] 139 mmol/L 136-145 [facility] Urea nitrogen [Mass/volume] in Serum or PlasmaOrdered By: Perri Ceja on 11-06-2023 Urea nitrogen [Mass/Vol] 17 mg/dL 7-25 [facility] WBC Auto (Bld) [#/Vol]Ordere d By: Perri Ceja on 11-06-2023 WBC (Bld) [#/Vol] 8.8 10*3/uL 3.8-11.6 [facility] Orders Onlyon 10-02-2023 Orders Only [id number] Antonio Puri i 1975 Date Provider Department Center 10/02/2023 1971-LU STEPHENS TXP None Family History Problem Relation Age of Onset Fibromyalgia Mother Heart disease Father Hypertension Sister Polycystic kidney disease Sister Hypertension Brother Polycystic kidney disease Brother Family Status - Relation Status Age at Mother Father Sister Brother [facility] Follow-Upon 09-01-2023 Follow-Up [id number] Antonio Puri i 1975 F Date Provider Department Center 09/01/2023 344-SUJIT BERNAL TXP None Family History Problem Relation Age of Onset Fibromyalgia Mother Heart disease Father Hypertension Sister Polycystic kidney disease Sister Hypertension Brother Polycystic kidney disease Brother Family Status - Relation Status Age at Mother Father Sister Brother Level of Service:05538 [place] OFFICE/OUTPATIENT ESTABLISHED MOD MDM 30-39 MIN (GC) Reason for Visit and Comments: Kidney Follow-up [] - Patient reports pain all over her body that comes and goes. She would like to discuss swelling in her feet. Normal [facility] BILIRUBIN, DIRECTon 08-26-20 Magnesium [Mass/Vol] 0.1 mg/dL Normal 0-0.2 [facility] Comment on above: Performed By: #### L [id number] #### [facility] , CBC WITH AUTO DIFFERENTIALon 08-26-2023 Basophils (Bld) [#/Vol] 0.05 10*3/uL Normal 0.00-0.20 [facility] Comment on above: Performed By: #### L [id number] #### [facility] (BEAKER) [address] [place] [address] Basophils/100 WBC (Bld) 0.6 % Normal 0.0-1.0 [facility] Comment on above: Performed By: #### L [id number] #### [facility] (BEAKER) [address] [place] [address] Eosinophils (Bld) [#/Vol] 0.20 10*3/uL Normal 0.00-0.50 [facility] Comment on above: Performed By: #### L [id number] #### [facility] (BEAKER) [address] [place] [address] Eosinophils/100 WBC (Bld) 2.5 % Normal 0.0-6.0 [facility] Comment on above: Performed By: #### L [id number] #### [facility] (BEAKER) [address] [place] [address] Erythrocyte distribution width (RBC) [Ratio] 14.4 % Normal 11.5-15.0 [facility] Comment on above: Performed By: #### L [id number] #### [facility] (BEAKER) [address] [place] [address] ERYTHROCYTE MEAN CORPUSCULAR HEMOGLOBIN CONCENTRATION (G/DL) BY AUTOMATED 32.9 g/dL Normal 32.0-35.0 [facility] Comment on above: Performed By: #### L [id number] #### [facility] (BEAKER) [address] [place] [address] Hematocrit (Bld) [Volume fraction] 40.4 % Normal 36.0-48.0 [facility] Comment on above: Performed By: #### L [id number] #### [facility] (BEAKER) [address] [place] [address] Hemoglobin (Bld) [Mass/Vol] 13.3 g/dL Normal 12.0-15.0 [facility] Comment on above: Performed By: #### L [id number] #### [facility] [address] [place] [address] Immature granulocytes (Bld) [#/Vol] 0.06 10*3/uL Normal 0.00-0.20 [facility] Comment on above: Performed By: #### L [id number] #### [facility] ([facility]) [address] [place] [address] Immature granulocytes/100 WBC (Bld) 0.7 % Normal 0.0-1.0 [facility] Comment on above: Performed By: #### L [id number] #### [facility] (BEAKER) [address] [place] [address] Lymphocytes (Bld) [#/Vol] 1.19 10*3/uL Low 1.20-4.00 [facility] Comment on above: Performed By: #### L [id number] #### [facility] (BEAKER) [address] [place] [address] Lymphocytes/100 WBC (Bld) 14.6 % Low 20.0-45.0 [facility] Comment on above: Performed By: #### L [id number] #### [facility] (BEAKER) [address] [place] [address] MCH (RBC) [Entitic mass] 28.4 pg Normal 27.0-33.0 [facility] Comment on above: Performed By: #### L [id number] #### [facility] (BEAKER) [address] [place] [address] MCV (RBC) [Entitic vol] 86.1 fL Normal 82.0-98.0 [facility] Comment on above: Performed By: #### L [id number] #### [facility] (BEAKER) [address] [place] [address] Monocytes (Bld) [#/Vol] 0.42 10*3/uL Normal 0.10-1.00 [facility] Comment on above: Performed By: #### L [id number] #### [facility] ([facility] [address] [place] [address] Monocytes/100 WBC (Bld) 5.2 % Normal 5.0-12.0 [facility] Comment on above: Performed By: #### L [id number] #### [facility] ([facility]) [address] [place] [address] Neutrophils (Bld) [#/Vol] 6.22 10*3/uL Normal 1.60-7.60 [facility] Comment on above: Performed By: #### L [id number] #### [facility] ([facility]) [address] [place] [address] Neutrophils/100 WBC (Bld) 76.4 % High 40.0-72.0 [facility] Comment on above: Performed By: #### L [id number] #### [facility] ([facility]) [address] [place] [address] NRBC (PER 100 WBCS) BY AUTOMATED COUNT 0.0 % Normal 0 [facility] Comment on above: Performed By: #### L [id number] #### [facility] ([facility] [address] [place] [address] PLATELETS (10*3/UL) IN BLOOD AUTOMATED COUNT 374 10*3/uL Normal 150-400 [facility] Comment on above: Performed By: #### L [id number] #### [facility] (BEAKER) [address] [place] [address] RBC (Bld) [#/Vol] 4.69 10*6/uL Normal 3.80-5.00 [facility] Comment on above: Performed By: #### L [id number] #### [facility] ([facility]) [address] [place] [address] WBC (Bld) [#/Vol] 8.14 10*3/uL Normal 4.00-10.60 [facility] Comment on above: Performed By: #### L [id number] #### [facility] ([facility]) [address] [place] [address] COMPREHENSIVE METABOLIC PANE Jonathan 08-26-2023 Albumin [Mass/Vol] 4.7 g/dL Normal 3.5-5.7 [facility] Comment on above: Performed By: #### L [id number] #### [facility] ([facility]) [address] [place] [address] ALP [Catalytic activity/Vol] 90 U/L Normal 34-104 [facility] Comment on above: Performed By: #### L [id number] #### [facility] ([facility]) [address] [place] [address] ALT [Catalytic activity/Vol] 26 U/L Normal 7-52 [facility] Comment on above: Performed By: #### L [id number] #### [facility] ([facility]) [address] [place] [address] Anion gap [Moles/Vol] 12 mmol/L Normal 7-20 [facility] Comment on above: Performed By: #### L [id number] #### [facility] ([facility]) [address] [place] [address] AST [Catalytic activity/Vol] 22 U/L Normal 13-39 [facility] Comment on above: Performed By: #### L [id number] #### [facility] ([facility]) [address] [place] [address] Bilirubin [Mass/Vol] 0.4 mg/dL Normal 0.3-1.0 [facility] Comment on above: Performed By: #### L [id number] #### [facility] ([facility] [address] [place] [address] Calcium [Mass/Vol] 9.6 mg/dL Normal 8.6-10.3 [facility] Comment on above: Performed By: #### L [id number] #### [facility] ([facility]) [address] [place] [address] Chloride [Moles/Vol] 103 mmol/L Normal 98-107 [facility] Comment on above: Performed By: #### L [id number] #### [facility] ([facility]) [address] [place] [address] CO2 [Moles/Vol] 26 mmol/L Normal 21-31 [facility] Comment on above: Performed By: #### L [id number] #### [facility] ([facility]) [address] [place] [address] Creatinine [Mass/Vol] 1.12 mg/dL Normal 0.60-1.20 [facility] Comment on above: Performed By: #### L [id number] #### [facility] ([facility]) [address] [place] [address] GLOMERULAR FILTRATION RATE ML/MIN/1.73 SQ M.PREDICTED 61.0 mL/min/1.73m*2 Normal >60.0 [facility] Comment on above: Result Comment: [facility]???s estimated glomerular filtration [...] individuals. Performed By: #### L [id number] #### [facility] ([facility]) [address] [place] [address] Glucose [Mass/Vol] 125 mg/dL High 70-100 [facility] Comment on above: Performed By: #### L [id number] #### [facility] ([facility]) [address] [place] [address] Potassium [Moles/Vol] 3.1 mmol/L Low 3.5-5.1 [facility] Comment on above: Performed By: #### L [id number] #### [facility] ([facility]) [address] [place] [address] Protein [Mass/Vol] 7.4 g/dL Normal 6.0-8.3 [facility] Comment on above: Performed By: #### L [id number] #### [facility] ([facility]) [address] [place] [address] Sodium [Moles/Vol] 138 mmol/L Normal 136-145 [facility] Comment on above: Performed By: #### L [id number] #### [facility] ([facility]) [address] [place] [address] Urea nitrogen [Mass/Vol] 15 mg/dL Normal 7-25 [facility] Comment on above: Performed By: #### L [id number] #### [facility] ([facility]) [address] [place] [address] UREA NITROGEN/CREATININE (MASS RATIO) IN SER/PLAS 13.4 Normal [facility] Comment on above: Performed By: #### L [id number] #### [facility] ([facility]) [address] [place] [address] HEMOGLOBIN A1Con 08-26-2023 Glucose [Mass/Vol] 108 mg/dL Normal [facility] Comment on above: Performed By: #### L [id number] #### [facility] ([facility]) [address] [place] [address] HbA1c (Bld) [Mass fraction] 5.4 % Normal 4.0-6.0 [facility] Comment on above: Performed By: #### L [id number] #### [facility] ([facility]) [address] [place] [address] LIPID PANELon 08-26-2023 CHOL/HDL 4.7 mg/dL Normal [facility] Comment on above: Performed By: #### L [id number] #### [facility] , Cholesterol [Mass/Vol] 198 mg/dL Normal 120-[address] [facility] Comment on above: Performed By: #### L [id number] #### [facility] , Magnesium [Mass/Vol] 248 mg/dL High 40-149 [facility] Comment on above: Result Comment: TRIG LYCERIDE REFERENCE RANGE: 20 YEARS AND OLDER CARDIOVASCULAR RISK LESS THAN 150 mg/dL LOW RISK 150 TO 199 mg/dL BORDERLINE RISK 200 mg/dL AND GREATER HIGH RISK Performed By: #### L [id number] #### [facility] , Magnesium [Mass/Vol] 106 mg/dL Normal 0-160 [facility] Comment on above: Performed By: #### L [id number] #### [facility] , Magnesium [Mass/Vol] 42 mg/dL Normal 23-92 [facility] Comment on above: Performed By: #### L [id number] #### [facility] , NON HDL CHOL. (LDL+VLDL) 156 Normal [facility] Comment on above: Performed By: #### L [id number] #### [facility] , TOTAL VLDL-C 50 mg/dL High 0-40 [facility] Comment on above: Performed By: #### L [id number] #### [facility] , Labon 08-26-2023 Lab [id number] Antonio Puri i 1975 F Date Provider Department Center 08/26/2023 2245-[facility] LAB RESOURCE [facility] MD Medical C Family History Problem Relation Age of Onset Fibromyalgia Mother Heart disease Father Hypertension Sister Polycystic kidney disease Sister Hypertension Brother Polycystic kidney disease Brother Family Status - Relation Status Age at Mother Father Sister Brother Normal [facility] MAGNESIUMon 08-26-2023 Magnesium [Mass/Vol] 1.5 mg/dL Low 1.9-2.7 [facility] Comment on above: Performed By: #### L [id number] #### [facility] (HIMA) [address] [place] [address] PHOSPHORUSon 08-26-2023 Magnesium [Mass/Vol] 2.9 mg/dL Normal 2.5-5.0 [facility] Comment on above: Performed By: #### L [id number] #### [facility] ([facility]) [address] [place] [address] TACROLIMUS LEVELon 3 Tacrolimus (Bld) [Mass/Vol] 9.2 ng/mL Normal 5.0-20.0 [facility] Comment on above: Result Comment: The MARCELO BACK ORDER CLERK Tacrolimus assay is a delayed one-step immunoassay for the quantitative determination of tacrolimus in human whole blood using the chemiluminescent microparticle immunoassay (CMIA) technology with flexible assay protocols, referred to as Chemiflex. Performed By: #### L [id number] #### [facility] , URIC ACIDon 08-26-2023 Magnesium [Mass/Vol] 5.1 mg/dL Normal 2.3-6.6 [facility] Comment on above: Performed By: #### L [id number] #### [facility] (HIMA) [address] [place] [address] COMPREHENSIVE METABOLIC PANE Jonathan 08-06-2023 Albumin [Mass/Vol] 4.7 g/dL Normal 3.5-5.7 [facility] Comment on above: Performed By: #### L [id number] #### [facility] , ALP [Catalytic activity/Vol] 85 U/L Normal 34-104 [facility] Comment on above: Performed By: #### L [id number] #### [facility] , ALT [Catalytic activity/Vol] 25 U/L Normal 7-52 [facility] Comment on above: Performed By: #### L [id number] #### [facility] , Anion gap [Moles/Vol] 14 mmol/L Normal 7-20 [facility] Comment on above: Performed By: #### L [id number] #### [facility] , AST [Catalytic activity/Vol] 23 U/L Normal 13-39 [facility] Comment on above: Performed By: #### L [id number] #### [facility] , Bilirubin [Mass/Vol] 0.5 mg/dL Normal 0.3-1.0 [facility] Comment on above: Performed By: #### L [id number] #### [facility] , Calcium [Mass/Vol] 9.5 mg/dL Normal 8.6-10.3 [facility] Comment on above: Performed By: #### L [id number] #### [facility] , Chloride [Moles/Vol] 105 mmol/L Normal 98-107 [facility] Comment on above: Performed By: #### L [id number] #### [facility] , CO2 [Moles/Vol] 21 mmol/L Normal 21-31 [facility] Comment on above: Performed By: #### L [id number] #### [facility] , Creatinine [Mass/Vol] 1.23 mg/dL High 0.60-1.20 [facility] Comment on above: Performed By: #### L [id number] #### [facility] , GLOMERULAR FILTRATION RATE ML/MIN/1.73 SQ M.PREDICTED 54.5 mL/min/1.73m*2 Low >60.0 [facility] Comment on above: Result Comment: [facility]???s estimated glomerular filtration [...] group of individuals. Performed By: #### L [id number] #### [facility] , Glucose [Mass/Vol] 133 mg/dL High 70-100 [facility] Comment on above: Performed By: #### L [id number] #### [facility] , Potassium [Moles/Vol] 3.4 mmol/L Low 3.5-5.1 [facility] Comment on above: Performed By: #### L [id number] #### [facility] , Protein [Mass/Vol] 7.4 g/dL Normal 6.0-8.3 [facility] Comment on above: Performed By: #### L [id number] #### [facility] , Sodium [Moles/Vol] 137 mmol/L Normal 136-145 [facility] Comment on above: Performed By: #### L [id number] #### [facility] , Urea nitrogen [Mass/Vol] 14 mg/dL Normal 7-25 [facility] Comment on above: Performed By: #### L [id number] #### [facility] , UREA NITROGEN/CREATININE (MASS RATIO) IN SER/PLAS 11.4 [facility] Comment on above: Performed By: #### L [id number] #### [facility] , Labon 08-06-2023 Lab [id number] Antonio Puri i 1975 F Date Provider Department Center 08/06/2023 2245-[facility] RESOURCE [facility] MD Medical C Family History Problem Relation Age of Onset Fibromyalgia Mother Heart disease Father Hypertension Sister Polycystic kidney disease Sister Hypertension Brother Polycystic kidney disease Brother Family Status - Relation Status Age at Mother Father Sister Brother Normal [facility] Orders Onlyon 08-06-2023 Orders Only [id number] Antonio Puri i 1975 F Date Provider Department Center 08/06/2023 [facility] None Family History Problem Relation Age of Onset Fibromyalgia Mother Heart disease Father Hypertension Sister Polycystic kidney disease Sister Hypertension Brother Polycystic kidney disease Brother Family Status - Relation Status Age at Mother Father Sister Brother Normal [facility] SINGLE ANTIGEN CLASS Ion AB SCREEN COMMENTS No Class I donor spe cific antibody identified Normal [facility] Comment on above: Order Comment: To be used after initial monthly order expires Performed By: #### L [id number] #### [facility] ([facility]) [address] [place] [address] CLASS I TESTED DATE [facility] Comment on above: Order Comment: To be used after initial monthly order expires Performed By: #### L [id number] #### [facility] [address] [place] [address] SIGNED BY Signed by Nelson escamilla CHT(ACHI) MT(ASCP), Telephone Information Supervisor Transplant Immunology [facility] Comment on above: Order Comment: To be used after initial monthly order expires Result Comment: Clas s I Antigen Microbeads Performed By: #### L [id number] #### [facility] ([facility]) [address] [place] [address] Performed By: #### L [id number] #### [facility] ([facility]) [address] [place] [address] SINGLE ANTIGEN CLASS 1 TEST METHOD Class I Single Antigen Normal [facility] Comment on above: Order Comment: To be used after initial monthly order expires Performed By: #### L [id number] #### [facility] [address] [place] [address] SINGLE ANTIGEN CLASS IIon AB SCREEN COMMENTS No Class II donor specific antibody identified [facility] Comment on above: Order Comment: To be used after initial monthly order expires Performed By: #### L [id number] #### [facility] ([facility]) [address] [place] [address] CLASS II TESTED DATE [facility] Comment on above: Order Comment: To be used after initial monthly order expires Performed By: #### L [id number] #### [facility] [address] [place] [address] SINGLE ANTIGEN CLASS 2 TEST METHOD Class II Single Antigen Normal [facility] Comment on above: Order Comment: To be used after initial monthly order expires Result Comment: Clas s II Antigen Microbeads Performed By: #### L [id number] #### [facility] (BEAKER) [address] [place] [address] MM screening mammo BI w/CADo n 07-30-2023 MM screening mammo BI w/CAD [facility] Main [place] [address] [place] [id number] Mammography Report Signed Patient: Mandeep Puri MR#: [id number] 15 : 1975 Acct:[id number] Age/Sex: 47 / F ADM Date: 07/30/23 Loc: [place] Room: Type: [facility] Attending Dr: Referral Self Copies to: Ming Espinoza, SELF,REFERRAL Blake Hinojosa DO Ordering Provider: SELF,REFERRAL [...] Messina Jr., D.OSon07/30/2023 4:05 PM Dictation Location: [facility] Transcribed By: [facility] 07/30/23 1605 Dictated By: Evan Messina Jr, DO 07/30/23 1604 Signed By: 07/30/23 160 [facility] CBC WITH AUTO DIFFERENTIALon 07-24-2023 Basophils (Bld) [#/Vol] 0.06 10*3/uL Normal 0.00-0.20 [facility] Comment on above: Performed By: #### L [id number] #### [facility] , Basophils/100 WBC (Bld) 0.7 % Normal 0.0-1.0 [facility] Comment on above: Performed By: #### L [id number] #### [facility] , Eosinophils (Bld) [#/Vol] 0.28 10*3/uL Normal 0.00-0.50 [facility] Comment on above: Performed By: #### L [id number] #### [facility] , Eosinophils/100 WBC (Bld) 3.3 % Normal 0.0-6.0 [facility] Comment on above: Performed By: #### L [id number] #### [facility] , Erythrocyte distribution width (RBC) [Ratio] 14.6 % Normal 11.5-15.0 [facility] Comment on above: Performed By: #### L [id number] #### [facility] , ERYTHROCYTE MEAN CORPUSCULAR HEMOGLOBIN CONCENTRATION (G/DL) BY AUTOMATED 33.2 g/dL Normal 32.0-35.0 [facility] Comment on above: Performed By: #### L [id number] #### [facility] , Hematocrit (Bld) [Volume fraction] 39.7 % Normal 36.0-48.0 [facility] Comment on above: Performed By: #### L [id number] #### [facility] , Hemoglobin (Bld) [Mass/Vol] 13.2 g/dL Normal 12.0-15.0 [facility] Comment on above: Performed By: #### L [id number] #### [facility] , Immature granulocytes (Bld) [#/Vol] 0.09 10*3/uL Normal 0.00-0.20 [facility] Comment on above: Performed By: #### L [id number] #### [facility] , Immature granulocytes/100 WBC (Bld) 1.1 % High 0.0-1.0 [facility] Comment on above: Performed By: #### L [id number] #### [facility] , Lymphocytes (Bld) [#/Vol] 1.41 10*3/uL Normal 1.20-4.00 [facility] Comment on above: Performed By: #### L [id number] #### [facility] , Lymphocytes/100 WBC (Bld) 16.5 % Low 20.0-45.0 [facility] Comment on above: Performed By: #### L [id number] #### [facility] , MCH (RBC) [Entitic mass] 28.9 pg Normal 27.0-33.0 [facility] Comment on above: Performed By: #### L [id number] #### [facility] , MCV (RBC) [Entitic vol] 86.9 fL Normal 82.0-98.0 [facility] Comment on above: Performed By: #### L [id number] #### [facility] , Monocytes (Bld) [#/Vol] 0.44 10*3/uL Normal 0.10-1.00 [facility] Comment on above: Performed By: #### L [id number] #### [facility] , Monocytes/100 WBC (Bld) 5.1 % Normal 5.0-12.0 [facility] Comment on above: Performed By: #### L [id number] #### [facility] , Neutrophils (Bld) [#/Vol] 6.28 10*3/uL Normal 1.60-7.60 [facility] Comment on above: Performed By: #### L [id number] #### [facility] , Neutrophils/100 WBC (Bld) 73.3 % High 40.0-72.0 [facility] Comment on above: Performed By: #### L [id number] #### [facility] , NRBC (PER 100 WBCS) BY AUTOMATED COUNT 0.0 % Normal 0 [facility] Comment on above: Performed By: #### L [id number] #### [facility] , PLATELETS (10*3/UL) IN BLOOD AUTOMATED COUNT 371 10*3/uL Normal 150-400 [facility] Comment on above: Performed By: #### L [id number] #### [facility] , RBC (Bld) [#/Vol] 4.57 10*6/uL Normal 3.80-5.00 [facility] Comment on above: Performed By: #### L [id number] #### [facility] , WBC (Bld) [#/Vol] 8.56 10*3/uL Normal 4.00-10.60 [facility] Comment on above: Performed By: #### L [id number] #### [facility] , Labon 07-24-2023 Lab [id number] Antonio Puri i 1975 F Date Provider Department Center 07/24/2023 [facility] LAB RESOURCE [facility] Family History Problem Relation Age of Onset Fibromyalgia Mother Heart disease Father Hypertension Sister Polycystic kidney disease Sister Hypertension Brother Polycystic kidney disease Brother Family Status - Relation Status Age at Mother Father Sister Brother Normal [facility] Orders Onlyon 07-24-2023 Orders Only [id number] Antonio Puri i 1975 Date Provider Department Center 07/24/2023 1971-[facility] TXP None Family History Problem Relation Age of Onset Fibromyalgia Mother Heart disease Father Hypertension Sister Polycystic kidney disease Sister Hypertension Brother Polycystic kidney disease Brother Family Status - Relation Status Age at Mother Father Sister Brother Normal [facility] BASIC METABOLIC PANELon 07-06 Anion gap [Moles/Vol] 16 mmol/L Normal 7-20 [facility] Comment on above: Performed By: #### L [id number] #### [facility] , Calcium [Mass/Vol] 9.7 mg/dL Normal 8.6-10.3 [facility] Comment on above: Performed By: #### L [id number] #### [facility] , Chloride [Moles/Vol] 104 mmol/L Normal 98-107 [facility] Comment on above: Performed By: #### L [id number] #### [facility] , CO2 [Moles/Vol] 23 mmol/L Normal 21-31 [facility] Comment on above: Performed By: #### L [id number] #### [facility] , Creatinine [Mass/Vol] 1.18 mg/dL Normal 0.60-1.20 [facility] Comment on above: Performed By: #### L [id number] #### [facility] , GLOMERULAR FILTRATION RATE ML/MIN/1.73 SQ M.PREDICTED 57.3 mL/min/1.73m*2 Low >60.0 [facility] Comment on above: Result Comment: The [facility]???s estimated glomerular filtration [...] group of individuals. Performed By: #### L [id number] #### [facility] , Glucose [Mass/Vol] 134 mg/dL High 70-100 [facility] Comment on above: Performed By: #### L [id number] #### [facility] , Potassium [Moles/Vol] 3.5 mmol/L Normal 3.5-5.1 [facility] Comment on above: Performed By: #### L [id number] #### [facility] , Sodium [Moles/Vol] 139 mmol/L Normal 136-145 [facility] Comment on above: Performed By: #### L [id number] #### [facility] , Urea nitrogen [Mass/Vol] 16 mg/dL Normal 7-25 [facility] Comment on above: Performed By: #### L [id number] #### [facility] , UREA NITROGEN/CREATININE (MASS RATIO) IN SER/PLAS 13.6 Normal [facility] Comment on above: Performed By: #### L [id number] #### [facility] , CBC WITH AUTO DIFFERENTIALon 07-17-2023 Basophils (Bld) [#/Vol] 0.05 10*3/uL Normal 0.00-0.20 [facility] Comment on above: Performed By: #### L [id number] #### [facility] LAB (BEAKER) [address] [place] [address] Basophils/100 WBC (Bld) 0.6 % Normal 0.0-1.0 [facility] Comment on above: Performed By: #### L [id number] #### [facility] LAB (BEAKER) [address] [place] [address] Eosinophils (Bld) [#/Vol] 0.21 10*3/uL Normal 0.00-0.50 [facility] Comment on above: Performed By: #### L [id number] #### [facility] LAB (BEAKER) [address] [place] [address] Eosinophils/100 WBC (Bld) 2.7 % Normal 0.0-6.0 [facility] Comment on above: Performed By: #### L [id number] #### [facility] LAB (BEAKER) [address] [place] [address] Erythrocyte distribution width (RBC) [Ratio] 14.3 % Normal 11.5-15.0 [facility] Comment on above: Performed By: #### L [id number] #### [facility] LAB (BEAKER) [address] [place] [address] ERYTHROCYTE MEAN CORPUSCULAR HEMOGLOBIN CONCENTRATION (G/DL) BY AUTOMATED 32.6 g/dL Normal 32.0-35.0 [facility] Comment on above: Performed By: #### L [id number] #### [facility] LAB (BEAKER) [address] [place] [address] Hematocrit (Bld) [Volume fraction] 38.3 % Normal 36.0-48.0 [facility] Comment on above: Performed By: #### L [id number] #### [facility] LAB (BEAKER) [address] [place] [id number] Hemoglobin (Bld) [Mass/Vol] 12.5 g/dL Normal 12.0-15.0 [facility] Comment on above: Performed By: #### L [id number] #### [facility] ([facility] [address] [place] [address] Immature granulocytes (Bld) [#/Vol] 0.10 10*3/uL Normal 0.00-0.20 [facility] Comment on above: Performed By: #### L [id number] #### [facility] ([facility] [address] [place] [id number] Immature granulocytes/100 WBC (Bld) 1.3 % High 0.0-1.0 [facility] Comment on above: Performed By: #### L [id number] #### [facility] LAB (BEAKER) [address] [place] [address] Lymphocytes (Bld) [#/Vol] 1.37 10*3/uL Normal 1.20-4.00 [facility] Comment on above: Performed By: #### L [id number] #### [facility] LAB (BEAKER) [address] [place] [address] Lymphocytes/100 WBC (Bld) 17.4 % Low 20.0-45.0 [facility] Comment on above: Performed By: #### L [id number] #### [facility] LAB (BEAKER) [address] [place] [address] MCH (RBC) [Entitic mass] 28.9 pg Normal 27.0-33.0 [facility] Comment on above: Performed By: #### L [id number] #### [facility] LAB (BEAKER) [address] [place] [id number] MCV (RBC) [Entitic vol] 88.5 fL Normal 82.0-98.0 [facility] Comment on above: Performed By: #### L [id number] #### [facility] ([facility] [address] [place] [id number] Monocytes (Bld) [#/Vol] 0.44 10*3/uL Normal 0.10-1.00 [facility] Comment on above: Performed By: #### L [id number] #### [facility] LAB ([facility]) [address] [place] [id number] Monocytes/100 WBC (Bld) 5.6 % Normal 5.0-12.0 [facility] Comment on above: Performed By: #### L [id number] #### [facility] ([facility]) [address] [place] [id number] Neutrophils (Bld) [#/Vol] 5.69 10*3/uL Normal 1.60-7.60 [facility] Comment on above: Performed By: #### L [id number] #### [facility] ([facility]) [address] [place] [id number] Neutrophils/100 WBC (Bld) 72.4 % High 40.0-72.0 [facility] Comment on above: Performed By: #### L [id number] #### [facility] ([facility]) [address] [place] [id number] NRBC (PER 100 WBCS) BY AUTOMATED COUNT 0.0 % Normal 0 [facility] Comment on above: Performed By: #### L [id number] #### [facility] ([facility]) [address] [place] [id number] PLATELETS (10*3/UL) IN BLOOD AUTOMATED COUNT 349 10*3/uL Normal 150-400 [facility] Comment on above: Performed By: #### L [id number] #### [facility] ([facility]) [address] [place] [id number] RBC (Bld) [#/Vol] 4.33 10*6/uL Normal 3.80-5.00 [facility] Comment on above: Performed By: #### L [id number] #### [facility] ([facility]) [address] [place] [address] WBC (Bld) [#/Vol] 7.86 10*3/uL Normal 4.00-10.60 [facility] Comment on above: Performed By: #### L [id number] #### [facility] ([facility]) [address] [place] [address] HEPATIC FUNCTION PANELon Albumin [Mass/Vol] 4.4 g/dL Normal 3.5-5.7 [facility] Comment on above: Performed By: #### L [id number] #### [facility] ([facility]) [address] [place] [address] ALP [Catalytic activity/Vol] 83 U/L Normal 34-104 [facility] Comment on above: Performed By: #### L [id number] #### [facility] ([facility]) [address] [place] [address] ALT [Catalytic activity/Vol] 25 U/L Normal 7-52 [facility] Comment on above: Performed By: #### L [id number] #### [facility] ([facility]) [address] [place] [address] AST [Catalytic activity/Vol] 21 U/L Normal 13-39 [facility] Comment on above: Performed By: #### L [id number] #### [facility] ([facility]) [address] [place] [address] Bilirubin [Mass/Vol] 0.4 mg/dL Normal 0.3-1.0 [facility] Comment on above: Performed By: #### L [id number] #### [facility] ([facility]) [address] [place] [address] Magnesium [Mass/Vol] 0.1 mg/dL Normal 0-0.2 [facility] Comment on above: Performed By: #### L [id number] #### [facility] ([facility]) [address] [place] [address] Protein [Mass/Vol] 7.3 g/dL Normal 6.0-8.3 [facility] Comment on above: Performed By: #### L [id number] #### [facility] ([facility]) [address] [place] [address] Labon 07-17-2023 Lab [id number] Antonio Puri sarath 1975 F Date Provider Department Center 07/17/2023 2245[facility] LAB RESOURCE [facility] Family History Problem Relation Age of Onset Fibromyalgia Mother Heart disease Father Hypertension Sister Polycystic kidney disease Sister Hypertension Brother Polycystic kidney disease Brother Family Status - Relation Status Age at Mother Father Sister Brother Normal [facility] MAGNESIUMon 07-17-2023 Magnesium [Mass/Vol] 1.6 mg/dL Low 1.9-2.7 [facility] Comment on above: Performed By: #### L [id number] #### [facility] , Orders Onlyon 07-17-2023 Orders Only [id number] KhushiAntonio clemens 1975 F Date Provider Department Center 07/17/2023 1971-[facility] TXP None Family History Problem Relation Age of Onset Fibromyalgia Mother Heart disease Father Hypertension Sister Polycystic kidney disease Sister Hypertension Brother Polycystic kidney disease Brother Family Status - Relation Status Age at Mother Father Sister Brother Normal [facility] PHOSPHORUSon 07-17-2023 Magnesium [Mass/Vol] 3.3 mg/dL Normal 2.5-5.0 [facility] Comment on above: Performed By: #### L [id number] #### [facility] LAB (BEAKER) [address] [place] [address] TACROLIMUS LEVELon Tacrolimus (Bld) [Mass/Vol] 6.5 ng/mL Normal 5.0-20.0 [facility] Comment on above: Result Comment: The MARC[employer]O BACK ORDER CLERK Tacrolimus assay is a delayed one-step immunoassay for the quantitative determination of tacrolimus in human whole blood using the chemiluminescent microparticle immunoassay (CMIA) technology with flexible assay protocols, referred to as Chemiflex. Performed By: #### L [id number] #### [facility] LAB (BEAKER) [address] [place] [address] URIC ACIDon 07-17-2023 Magnesium [Mass/Vol] 4.9 mg/dL Normal 2.3-6.6 [facility] Comment on above: Performed By: #### L [id number] #### [facility] , 29on 07-16-2023 29 Addended by: LU STEPHENS on: 07/16/2023 03:23 PM Modules accepted: Orders Normal [facility] Documentationon 07-16-2023 Documentation [id number] Antonio Puri sarath 1975 F Date Provider Department Center 07/16/2023 1971-[facility] TXP None Family History Problem Relation Age of Onset Fibromyalgia Mother Heart disease Father Hypertension Sister Polycystic kidney disease Sister Hypertension Brother Polycystic kidney disease Brother Family Status - Relation Status Age at Mother Father Sister Brother Reason for Visit and Comments: Kidney Follow-up [[id number]] [facility] BASIC METABOLIC PANELon 06-07 Anion gap [Moles/Vol] 13 mmol/L Normal 7-20 [facility] Comment on above: Performed By: #### L [id number] #### [facility] , Calcium [Mass/Vol] 9.6 mg/dL Normal 8.6-10.3 [facility] Comment on above: Performed By: #### L [id number] #### [facility] , Chloride [Moles/Vol] 102 mmol/L Normal 98-107 [facility] Comment on above: Performed By: #### L [id number] #### [facility] , CO2 [Moles/Vol] 25 mmol/L Normal 21-31 [facility] Comment on above: Performed By: #### L [id number] #### [facility] , Creatinine [Mass/Vol] 1.26 mg/dL High 0.60-1.20 [facility] Comment on above: Performed By: #### L [id number] #### [facility] , GLOMERULAR FILTRATION RATE ML/MIN/1.73 SQ M.PREDICTED 53.0 mL/min/1.73m*2 Low >60.0 [facility] Comment on above: Result Comment: [facility]???s estimated glomerular filtration [...] group of individuals. Performed By: #### L [id number] #### [facility] , Glucose [Mass/Vol] 128 mg/dL High 70-100 [facility] Comment on above: Performed By: #### L [id number] #### [facility] , Potassium [Moles/Vol] 3.1 mmol/L Low 3.5-5.1 [facility] Comment on above: Performed By: #### L [id number] #### [facility] , Sodium [Moles/Vol] 137 mmol/L Normal 136-145 [facility] Comment on above: Performed By: #### L [id number] #### [facility] , Urea nitrogen [Mass/Vol] 14 mg/dL Normal 7-25 [facility] Comment on above: Performed By: #### L [id number] #### [facility] , UREA NITROGEN/CREATININE (MASS RATIO) IN SER/PLAS 11.1 Normal [facility] Comment on above: Performed By: #### L [id number] #### [facility] , CBC WITH AUTO DIFFERENTIALon 06-28-2023 Basophils (Bld) [#/Vol] 0.06 10*3/uL Normal 0.00-0.20 [facility] Comment on above: Performed By: #### L [id number] #### [facility] LAB (BEAKER) [address] [place] [address] Basophils/100 WBC (Bld) 0.6 % Normal 0.0-1.0 [facility] Comment on above: Performed By: #### L [id number] #### [facility] ([facility] [address] [place] [address] Eosinophils (Bld) [#/Vol] 0.18 10*3/uL Normal 0.00-0.50 [facility] Comment on above: Performed By: #### L [id number] #### [facility] ([facility]) [address] [place] [address] Eosinophils/100 WBC (Bld) 1.8 % Normal 0.0-6.0 [facility] Comment on above: Performed By: #### L [id number] #### [facility] ([facility]) [address] [place] [address] Erythrocyte distribution width (RBC) [Ratio] 14.5 % Normal 11.5-15.0 [facility] Comment on above: Performed By: #### L [id number] #### [facility] ([facility]) [address] [place] [address] ERYTHROCYTE MEAN CORPUSCULAR HEMOGLOBIN CONCENTRATION (G/DL) BY AUTOMATED 33.1 g/dL Normal 32.0-35.0 [facility] Comment on above: Performed By: #### L [id number] #### [facility] ([facility]) [address] [place] [address] Hematocrit (Bld) [Volume fraction] 40.5 % Normal 36.0-48.0 [facility] Comment on above: Performed By: #### L [id number] #### [facility] ([facility] [address] [place] [address] Hemoglobin (Bld) [Mass/Vol] 13.4 g/dL Normal 12.0-15.0 [facility] Comment on above: Performed By: #### L [id number] #### [facility] LAB (BEAKER) [address] [place] [address] Immature granulocytes (Bld) [#/Vol] 0.13 10*3/uL Normal 0.00-0.20 [facility] Comment on above: Performed By: #### L [id number] #### [facility] ([facility]) [address] [place] [address] Immature granulocytes/100 WBC (Bld) 1.3 % High 0.0-1.0 [facility] Comment on above: Performed By: #### L [id number] #### [facility] ([facility]) [address] [place] [address] Lymphocytes (Bld) [#/Vol] 1.30 10*3/uL Normal 1.20-4.00 [facility] Comment on above: Performed By: #### L [id number] #### [facility] ([facility]) [address] [place] [address] Lymphocytes/100 WBC (Bld) 13.3 % Low 20.0-45.0 [facility] Comment on above: Performed By: #### L [id number] #### [facility] ([facility]) [address] [place] [address] MCH (RBC) [Entitic mass] 29.2 pg Normal 27.0-33.0 [facility] Comment on above: Performed By: #### L [id number] #### [facility] ([facility]) [address] [place] [address] MCV (RBC) [Entitic vol] 88.2 fL Normal 82.0-98.0 [facility] Comment on above: Performed By: #### L [id number] #### [facility] ([facility]) [address] [place] [address] Monocytes (Bld) [#/Vol] 0.51 10*3/uL Normal 0.10-1.00 [facility] Comment on above: Performed By: #### L [id number] #### [facility] ([facility]) [address] [place] [address] Monocytes/100 WBC (Bld) 5.2 % Normal 5.0-12.0 [facility] Comment on above: Performed By: #### L [id number] #### [facility] ([facility] [address] [place] [address] Neutrophils (Bld) [#/Vol] 7.62 10*3/uL High 1.60-7.60 [facility] Comment on above: Performed By: #### L [id number] #### [facility] ([facility]) [address] [place] [address] Neutrophils/100 WBC (Bld) 77.8 % High 40.0-72.0 [facility] Comment on above: Performed By: #### L [id number] #### [facility] ([facility]) [address] [place] [address] NRBC (PER 100 WBCS) BY AUTOMATED COUNT 0.0 % Normal 0 [facility] Comment on above: Performed By: #### L [id number] #### [facility] ([facility]) [address] [place] [address] PLATELETS (10*3/UL) IN BLOOD AUTOMATED COUNT 334 10*3/uL Normal 150-400 [facility] Comment on above: Performed By: #### L [id number] #### [facility] ([facility]) [address] [address] RBC (Bld) [#/Vol] 4.59 10*6/uL Normal 3.80-5.00 [facility] Comment on above: Performed By: #### L [id number] #### [facility] ([facility]) [address] [place] [address] WBC (Bld) [#/Vol] 9.80 10*3/uL Normal 4.00-10.60 [facility] Comment on above: Performed By: #### L [id number] #### [facility] ([facility] [address] [place] [address] HEPATIC FUNCTION PANELon Albumin [Mass/Vol] 4.7 g/dL Normal 3.5-5.7 [facility] Comment on above: Performed By: #### L [id number] #### [facility] , ALP [Catalytic activity/Vol] 91 U/L Normal 34-104 [facility] Comment on above: Performed By: #### L [id number] #### [facility] , ALT [Catalytic activity/Vol] 29 U/L Normal 7-52 [facility] Comment on above: Performed By: #### L [id number] #### [facility] , AST [Catalytic activity/Vol] 25 U/L Normal 13-39 [facility] Comment on above: Performed By: #### L [id number] #### [facility] , Bilirubin [Mass/Vol] 0.5 mg/dL Normal 0.3-1.0 [facility] Comment on above: Performed By: #### L [id number] #### [facility] , Magnesium [Mass/Vol] 0.1 mg/dL Normal 0-0.2 [facility] Comment on above: Performed By: #### L [id number] #### [facility] , Protein [Mass/Vol] 7.9 g/dL Normal 6.0-8.3 [facility] Comment on above: Performed By: #### L [id number] #### [facility] , LIPID PANELon 06-28-2023 CHOL/HDL 4.1 mg/dL Normal [facility] Comment on above: Performed By: #### L [id number] #### [facility] TISSUE TYPING (HISTOTRAC) [address] Cholesterol [Mass/Vol] 192 mg/dL Normal 120-200 [facility] Comment on above: Performed By: #### L [id number] #### [facility] TISSUE TYPING (HISTOTRAC) [address] [place] [address] [facility] Magnesium [Mass/Vol] 228 mg/dL High 40-149 [facility] Comment on above: Result Comment: TRIG LYCERIDE REFERENCE RANGE: 20 YEARS AND OLDER CARDIOVASCULAR RISK LESS THAN 150 mg/dL LOW RISK 150 TO 199 mg/dL BORDERLINE RISK 200 mg/dL AND GREATER HIGH RISK Performed By: #### L [id number] #### [facility] TISSUE TYPING (HISTOTRAC) [address] [place] [address] [place] Magnesium [Mass/Vol] 99 mg/dL Normal 0-160 [facility] Comment on above: Performed By: #### L [id number] #### [facility] TISSUE TYPING (HISTOTRAC) [address] [place] [address] [facility] Magnesium [Mass/Vol] 47 mg/dL Normal 23-92 [facility] Comment on above: Performed By: #### L [id number] #### [facility] TISSUE TYPING (HISTOTRAC) [address] [place] [address] [facility] NON HDL CHOL. (LDL+VLDL) 145 Normal [facility] Comment on above: Performed By: #### L [id number] #### [facility] TISSUE TYPING (HISTOTRAC) [address] [place] [address] [facility] TOTAL VLDL-C 46 mg/dL High 0-40 [facility] Comment on above: Performed By: #### L [id number] #### [facility] TISSUE TYPING (HISTOTRAC) [address] [place] [address] [place] Labon 06-28-2023 Lab [id number] Antonio Puri i 1975 F Date Provider Department Center 06/28/2023 2245-[facility] OPD LAB RESOURCE [facility] OPD [facility] C Family History Problem Relation Age of Onset Fibromyalgia Mother Heart disease Father Hypertension Sister Polycystic kidney disease Sister Hypertension Brother Polycystic kidney disease Brother Family Status - Relation Status Age at Mother Father Sister Brother Normal [facility] MAGNESIUMon 06-28-2023 Magnesium [Mass/Vol] 1.4 mg/dL Low 1.9-2.7 [facility] Comment on above: Performed By: #### L [id number] #### [facility] HOSPITAL LAB (BEAKER) [address] [place] [address] PHOSPHORUSon 06-28-2023 Magnesium [Mass/Vol] 2.7 mg/dL Normal 2.5-5.0 [facility] Comment on above: Performed By: #### L [id number] #### [facility] LAB (BEAKER) [address] [place] [address] TACROLIMUS LEVELon 3 Tacrolimus (Bld) [Mass/Vol] 6.9 ng/mL Normal 5.0-20.0 [facility] Comment on above: Result Comment: The MARCELO BACK ORDER CLERK Tacrolimus assay is a delayed one-step immunoassay for the quantitative determination of tacrolimus in human whole blood using the chemiluminescent microparticle immunoassay (CMIA) technology with flexible assay protocols, referred to as Chemiflex. Performed By: #### L [id number] #### [facility] TISSUE TYPING (HISTOTRAC) [address] [place] [address] [place] URIC ACIDon 06-28-2023 Magnesium [Mass/Vol] 5.0 mg/dL Normal 2.3-6.6 [facility] Comment on above: Performed By: #### L [id number] #### [facility] LAB (BEAKER) [address] [place] [address] 36on 06-23-2023 36 I reviewed the case with the resident. I agree with the assessment and plan as documented in the resident's note. Ming Kidd, PharmD, BCTXP Normal [facility] Telephoneon 06-17-2023 Telephone [id number] KhushiAntonio i 1975 F Date Provider Department Center 06/17/2023 LIAM CREWS TXCaridad None Family History Problem Relation Age of Onset Fibromyalgia Mother Heart disease Father Hypertension Sister Polycystic kidney disease Sister Hypertension Brother Polycystic kidney disease Brother Family Status - Relation Status Age at Mother Father Sister Brother Reason for Visit and Comments: Transplant Pharmacist - Drug Information [[id number]] Normal [facility] BASIC METABOLIC PANELon 05-07 Anion gap [Moles/Vol] 13 mmol/L Normal 7-20 [facility] Comment on above: Performed By: #### L [id number] #### [facility] LAB (BEAKER) [address] [place] [address] Calcium [Mass/Vol] 9.5 mg/dL Normal 8.6-10.3 [facility] Comment on above: Performed By: #### L [id number] #### [facility] [address] [place] [address] Chloride [Moles/Vol] 101 mmol/L Normal 98-107 [facility] Comment on above: Performed By: #### L [id number] #### [facility] LAB ([facility]) [address] [place] [id number] CO2 [Moles/Vol] 27 mmol/L Normal 21-31 [facility] Comment on above: Performed By: #### L [id number] #### [facility] LAB ([facility]) [address] [place] [address] Creatinine [Mass/Vol] 1.28 mg/dL High 0.60-1.20 [facility] Comment on above: Performed By: #### L [id number] #### [facility] LAB ([facility]) [address] [place] [address] GLOMERULAR FILTRATION RATE ML/MIN/1.73 SQ M.PREDICTED 52.0 mL/min/1.73m*2 Low >60.0 [facility] Comment on above: Result Comment: The [facility]???s estimated glomerular filtration [...] individuals. Performed By: #### L [id number] #### [facility] ([facility] [address] [place] [address] Glucose [Mass/Vol] 163 mg/dL High 70-100 [facility] Comment on above: Performed By: #### L [id number] #### [facility] ([facility] [address] [place] [address] Potassium [Moles/Vol] 3.1 mmol/L Low 3.5-5.1 [facility] Comment on above: Performed By: #### L [id number] #### [facility] LAB ([facility]) [address] [place] [address] Sodium [Moles/Vol] 138 mmol/L Normal 136-145 [facility] Comment on above: Performed By: #### L [id number] #### [facility] ([facility]) [address] [place] [address] Urea nitrogen [Mass/Vol] 18 mg/dL Normal 7-25 [facility] Comment on above: Performed By: #### L [id number] #### [facility] LAB ([facility]) [address] [place] [address] UREA NITROGEN/CREATININE (MASS RATIO) IN SER/PLAS 14.1 Normal [facility] Comment on above: Performed By: #### L [id number] #### [facility] LAB ([facility]) [address] [place] [address] CBC WITH AUTO DIFFERENTIALon 05-29-2023 Basophils (Bld) [#/Vol] 0.06 10*3/uL Normal 0.00-0.20 [facility] Comment on above: Performed By: #### L [id number] #### [facility] TISSUE TYPING (HISTOTRAC) [address] [place] [address] [place] Basophils/100 WBC (Bld) 0.6 % Normal 0.0-1.0 [facility] Comment on above: Performed By: #### L [id number] #### [facility] TISSUE TYPING (HISTOTRAC) [address] [place] [address] [place] Eosinophils (Bld) [#/Vol] 0.18 10*3/uL Normal 0.00-0.50 [facility] Comment on above: Performed By: #### L [id number] #### [facility] TISSUE TYPING (HISTOTRAC) [address] [place] [address] [place] Eosinophils/100 WBC (Bld) 1.9 % Normal 0.0-6.0 [facility] Comment on above: Performed By: #### L [id number] #### [facility] TISSUE TYPING (HISTOTRAC) [address] Erythrocyte distribution width (RBC) [Ratio] 14.3 % Normal 11.5-15.0 [facility] Comment on above: Performed By: #### L [id number] #### [facility] TISSUE TYPING (HISTOTRAC) [address] ERYTHROCYTE MEAN CORPUSCULAR HEMOGLOBIN CONCENTRATION (G/DL) BY AUTOMATED 32.4 g/dL Normal 32.0-35.0 [facility] Comment on above: Performed By: #### L [id number] #### [facility] TISSUE TYPING (HISTOTRAC) [address] Hematocrit (Bld) [Volume fraction] 37.4 % Normal 36.0-48.0 [facility] Comment on above: Performed By: #### L [id number] #### [facility] TISSUE TYPING (HISTOTRAC) [address] [place] [address] [place] Hemoglobin (Bld) [Mass/Vol] 12.1 g/dL Normal 12.0-15.0 [facility] Comment on above: Performed By: #### L [id number] #### [facility] TISSUE TYPING (HISTOTRAC) [address] Immature granulocytes (Bld) [#/Vol] 0.17 10*3/uL Normal 0.00-0.20 [facility] Comment on above: Performed By: #### L [id number] #### [facility] TISSUE TYPING (HISTOTRAC) [address] [place] [address] [place] Immature granulocytes/100 WBC (Bld) 1.8 % High 0.0-1.0 [facility] Comment on above: Performed By: #### L [id number] #### [facility] TISSUE TYPING (HISTOTRAC) [address] [place] [address] [place] Lymphocytes (Bld) [#/Vol] 1.30 10*3/uL Normal 1.20-4.00 [facility] Comment on above: Performed By: #### L [id number] #### [facility] TISSUE TYPING (HISTOTRAC) [address] Lymphocytes/100 WBC (Bld) 13.4 % Low 20.0-45.0 [facility] Comment on above: Performed By: #### L [id number] #### [facility] TISSUE TYPING (HISTOTRAC) [address] MCH (RBC) [Entitic mass] 28.8 pg Normal 27.0-33.0 [facility] Comment on above: Performed By: #### L [id number] #### [facility] TISSUE TYPING (HISTOTRAC) [address] MCV (RBC) [Entitic vol] 89.0 fL Normal 82.0-98.0 [facility] Comment on above: Performed By: #### L [id number] #### [facility] TISSUE TYPING (HISTOTRAC) [address] Monocytes (Bld) [#/Vol] 0.56 10*3/uL Normal 0.10-1.00 [facility] Comment on above: Performed By: #### L [id number] #### [facility] TISSUE TYPING (HISTOTRAC) [address] Monocytes/100 WBC (Bld) 5.8 % Normal 5.0-12.0 [facility] Comment on above: Performed By: #### L [id number] #### [facility] TISSUE TYPING (HISTOTRAC) [address] [place] [address] [place] Neutrophils (Bld) [#/Vol] 7.43 10*3/uL Normal 1.60-7.60 [facility] Comment on above: Performed By: #### L [id number] #### [facility] TISSUE TYPING (HISTOTRAC) [address] [place] [address] [place] Neutrophils/100 WBC (Bld) 76.5 % High 40.0-72.0 [facility] Comment on above: Performed By: #### L [id number] #### [facility] TISSUE TYPING (HISTOTRAC) [address] NRBC (PER 100 WBCS) BY AUTOMATED COUNT 0.0 % Normal 0 [facility] Comment on above: Performed By: #### L [id number] #### [facility] TISSUE TYPING (HISTOTRAC) [address] PLATELETS (10*3/UL) IN BLOOD AUTOMATED COUNT 331 10*3/uL Normal 150-400 [facility] Comment on above: Performed By: #### L [id number] #### [facility] TISSUE TYPING (HISTOTRAC) [address] RBC (Bld) [#/Vol] 4.20 10*6/uL Normal 3.80-5.00 [facility] Comment on above: Performed By: #### L [id number] #### [facility] TISSUE TYPING (HISTOTRAC) [address] WBC (Bld) [#/Vol] 9.70 10*3/uL Normal 4.00-10.60 [facility] Comment on above: Performed By: #### L [id number] #### [facility] TISSUE TYPING (HISTOTRAC) [address] [place], [place] [address] HEPATIC FUNCTION PANELon Albumin [Mass/Vol] 4.5 g/dL Normal 3.5-5.7 [facility] Comment on above: Performed By: #### L [id number] #### [facility] HOSPITAL LAB (BEAKER) [address] [place] [address] ALP [Catalytic activity/Vol] 87 U/L Normal 34-104 [facility] Comment on above: Performed By: #### L [id number] #### [facility] HOSPITAL LAB (BEAKER) [address] [place] [id number] ALT [Catalytic activity/Vol] 29 U/L Normal 7-52 [facility] Comment on above: Performed By: #### L [id number] #### [facility] LAB ([facility] [address] [place] [address] AST [Catalytic activity/Vol] 24 U/L Normal 13-39 [facility] Comment on above: Performed By: #### L [id number] #### [facility] LAB ([facility]) [address] [place] [id number] Bilirubin [Mass/Vol] 0.4 mg/dL Normal 0.3-1.0 [facility] Comment on above: Performed By: #### L [id number] #### [facility] LAB ([facility] [address] [place] [id number] Magnesium [Mass/Vol] 0.0 mg/dL Normal 0-0.2 [facility] Comment on above: Performed By: #### L [id number] #### [facility] LAB ([facility] [address] [place] [id number] Protein [Mass/Vol] 7.4 g/dL Normal 6.0-8.3 [facility] Comment on above: Performed By: #### L [id number] #### [facility] LAB (BEAKER) [address] [place] [id number] Labon 05-29-2023 Lab [id number] Antonio Puri i 1975 F Date Provider Department Center 05/29/2023 2245-[facility] OPD LAB RESOURCE [facility] OPD MD Medical C Family History Problem Relation Age of Onset Fibromyalgia Mother Heart disease Father Hypertension Sister Polycystic kidney disease Sister Hypertension Brother Polycystic kidney disease Brother Family Status - Relation Status Age at Mother Father Sister Brother Normal [facility] MAGNESIUMon 05-29-2023 Magnesium [Mass/Vol] 1.7 mg/dL Low 1.9-2.7 [facility] Comment on above: Performed By: #### L [id number] #### [facility] ([facility]) [address] [place] [id number] PHOSPHORUSon 05-29-2023 Magnesium [Mass/Vol] 2.8 mg/dL Normal 2.5-5.0 [facility] Comment on above: Performed By: #### L [id number] #### [facility] LAB ([facility]) [address] [place] [id number] TACROLIMUS LEVELon Tacrolimus (Bld) [Mass/Vol] 5.6 ng/mL Normal 5.0-20.0 [facility] Comment on above: Result Comment: The MARCELO BACK ORDER CLERK Tacrolimus assay is a delayed one-step immunoassay for the quantitative determination of tacrolimus in human whole blood using the chemiluminescent microparticle immunoassay (CMIA) technology with flexible assay protocols, referred to as Chemiflex. Performed By: #### L [id number] #### [facility] LAB ([facility]) [address] [place] [id number] URIC ACIDon 05-29-2023 Magnesium [Mass/Vol] 5.0 mg/dL Normal 2.3-6.6 [facility] Comment on above: Performed By: #### L [id number] #### [facility] LAB ([facility]) [address] [place] [address] BASIC METABOLIC PANELon 04-06 Anion gap [Moles/Vol] 13 mmol/L Normal 7-20 [facility] Comment on above: Performed By: #### L [id number] #### [facility] LAB ([facility]) [address] [place] [address] Calcium [Mass/Vol] 9.5 mg/dL Normal 8.6-10.3 [facility] Comment on above: Performed By: #### L [id number] #### [facility] LAB ([facility]) [address] [place] [address] Chloride [Moles/Vol] 104 mmol/L Normal 98-107 [facility] Comment on above: Performed By: #### L [id number] #### [facility] LAB ([facility]) [address] [place] [address] CO2 [Moles/Vol] 22 mmol/L Normal 21-31 [facility] Comment on above: Performed By: #### L [id number] #### [facility] LAB ([facility]) [address] [place] [id number] Creatinine [Mass/Vol] 1.25 mg/dL High 0.60-1.20 [facility] Comment on above: Performed By: #### L [id number] #### [facility] ([facility]) [address] [place] [id number] GLOMERULAR FILTRATION RATE ML/MIN/1.73 SQ M.PREDICTED 53.5 mL/min/1.73m*2 Low >60.0 [facility] Comment on above: Result Comment: [facility]???s estimated glomerular filtration [...] individuals. Performed By: #### L [id number] #### [facility] LAB ([facility]) [address] [place] [id number] Glucose [Mass/Vol] 189 mg/dL High 70-100 [facility] Comment on above: Performed By: #### L [id number] #### [facility] LAB ([facility]) [address] [place] [id number] Potassium [Moles/Vol] 4.0 mmol/L Normal 3.5-5.1 [facility] Comment on above: Performed By: #### L [id number] #### [facility] ([facility]) [address] [place] [id number] Sodium [Moles/Vol] 135 mmol/L Low 136-145 [facility] Comment on above: Performed By: #### L [id number] #### [facility] ([facility]) [address] [place] [address] Urea nitrogen [Mass/Vol] 19 mg/dL Normal 7-25 [facility] Comment on above: Performed By: #### L [id number] #### [facility] ([facility]) [address] [place] [id number] UREA NITROGEN/CREATININE (MASS RATIO) IN SER/PLAS 15.2 Normal [facility] Comment on above: Performed By: #### L [id number] #### [facility] LAB ([facility]) [address] [address] CBC WITH AUTO DIFFERENTIALon 04-30-2023 Basophils (Bld) [#/Vol] 0.05 10*3/uL Normal 0.00-0.20 [facility] Comment on above: Performed By: #### L [id number] #### [facility] LAB ([facility]) [address] [place] [address] Basophils/100 WBC (Bld) 0.7 % Normal 0.0-1.0 [facility] Comment on above: Performed By: #### L [id number] #### [facility] LAB ([facility]) [address] [place] [address] Eosinophils (Bld) [#/Vol] 0.16 10*3/uL Normal 0.00-0.50 [facility] Comment on above: Performed By: #### L [id number] #### [facility] LAB ([facility]) [address] [place] [address] Eosinophils/100 WBC (Bld) 2.1 % Normal 0.0-6.0 [facility] Comment on above: Performed By: #### L [id number] #### [facility] LAB ([facility]) [address] [place] [address] Erythrocyte distribution width (RBC) [Ratio] 14.3 % Normal 11.5-15.0 [facility] Comment on above: Performed By: #### L [id number] #### [facility] [address] [place] [address] ERYTHROCYTE MEAN CORPUSCULAR HEMOGLOBIN CONCENTRATION (G/DL) BY AUTOMATED 33.1 g/dL Normal 32.0-35.0 [facility] Comment on above: Performed By: #### L [id number] #### [facility] LAB (BEAKER) [address] [place] [id number] Hematocrit (Bld) [Volume fraction] 35.9 % Low 36.0-48.0 [facility] Comment on above: Performed By: #### L [id number] #### [facility] LAB (BEAKER) [address] [address] Hemoglobin (Bld) [Mass/Vol] 11.9 g/dL Low 12.0-15.0 [facility] Comment on above: Performed By: #### L [id number] #### [facility] LAB (BEAKER) [address] [place] [address] Immature granulocytes (Bld) [#/Vol] 0.12 10*3/uL Normal 0.00-0.20 [facility] Comment on above: Performed By: #### L [id number] #### [facility] LAB (BEAKER) [address] [place] [address] Immature granulocytes/100 WBC (Bld) 1.6 % High 0.0-1.0 [facility] Comment on above: Performed By: #### L [id number] #### [facility] LAB (BEAKER) [address] [place] [address] Lymphocytes (Bld) [#/Vol] 1.30 10*3/uL Normal 1.20-4.00 [facility] Comment on above: Performed By: #### L [id number] #### [facility] LAB (BEAKER) [address] [place] [address] Lymphocytes/100 WBC (Bld) 16.9 % Low 20.0-45.0 [facility] Comment on above: Performed By: #### L [id number] #### [facility] LAB (BEAKER) [address] [place] [address] MCH (RBC) [Entitic mass] 29.6 pg Normal 27.0-33.0 [facility] Comment on above: Performed By: #### L [id number] #### [facility] ([facility]) [address] [place] [address] MCV (RBC) [Entitic vol] 89.3 fL Normal 82.0-98.0 [facility] Comment on above: Performed By: #### L [id number] #### [facility] ([facility]) [address] [place] [address] Monocytes (Bld) [#/Vol] 0.46 10*3/uL Normal 0.10-1.00 [facility] Comment on above: Performed By: #### L [id number] #### [facility] ([facility]) [address] [place] [address] Monocytes/100 WBC (Bld) 6.0 % Normal 5.0-12.0 [facility] Comment on above: Performed By: #### L [id number] #### [facility] ([facility]) [address] [place] [id number] Neutrophils (Bld) [#/Vol] 5.58 10*3/uL Normal 1.60-7.60 [facility] Comment on above: Performed By: #### L [id number] #### [facility] ([facility]) [address] [place] [address] Neutrophils/100 WBC (Bld) 72.7 % High 40.0-72.0 [facility] Comment on above: Performed By: #### L [id number] #### [facility] ([facility]) [address] [place] [id number] NRBC (PER 100 WBCS) BY AUTOMATED COUNT 0.0 % Normal 0 [facility] Comment on above: Performed By: #### L [id number] #### [facility] [address] [place] [id number] PLATELETS (10*3/UL) IN BLOOD AUTOMATED COUNT 295 10*3/uL Normal 150-400 [facility] Comment on above: Performed By: #### L [id number] #### [facility] LAB ([facility]) [address] [place] [address] RBC (Bld) [#/Vol] 4.02 10*6/uL Normal 3.80-5.00 [facility] Comment on above: Performed By: #### L [id number] #### [facility] ([facility]) [address] [place] [address] WBC (Bld) [#/Vol] 7.67 10*3/uL Normal 4.00-10.60 [facility] Comment on above: Performed By: #### L [id number] #### [facility] LAB ([facility]) [address] [place] [address] HEPATIC FUNCTION PANELon Albumin [Mass/Vol] 4.6 g/dL Normal 3.5-5.7 [facility] Comment on above: Performed By: #### L [id number] #### [facility] TISSUE TYPING (HISTOTRAC) [address] [place] [address] [place] ALP [Catalytic activity/Vol] 82 U/L Normal 34-104 [facility] Comment on above: Performed By: #### L [id number] #### [facility] TISSUE TYPING (HISTOTRAC) [address] [place] [address] [place] ALT [Catalytic activity/Vol] 25 U/L Normal 7-52 [facility] Comment on above: Performed By: #### L [id number] #### [facility] TISSUE TYPING (HISTOTRAC) [address] [place] [address] [place] AST [Catalytic activity/Vol] 19 U/L Normal 13-39 [facility] Comment on above: Performed By: #### L [id number] #### [facility] TISSUE TYPING (HISTOTRAC) [address] [place] [address] [place] Bilirubin [Mass/Vol] 0.5 mg/dL Normal 0.3-1.0 [facility] Comment on above: Performed By: #### L [id number] #### [facility] TISSUE TYPING (HISTOTRAC) [address] [place] [address] [facility] Magnesium [Mass/Vol] 0.1 mg/dL Normal 0-0.2 [facility] Comment on above: Performed By: #### L [id number] #### [facility] TISSUE TYPING (HISTOTRAC) [address] [place] [address] [facility] Protein [Mass/Vol] 7.2 g/dL Normal 6.0-8.3 [facility] Comment on above: Performed By: #### L [id number] #### [facility] TISSUE TYPING (HISTOTRAC) [address] [place] [address] [place] Labon 04-30-2023 Lab [id number] Antonio Puri i 1975 F Date Provider Department Center 04/30/2023 2245-[facility] LAB RESOURCE [facility] C Family History Problem Relation Age of Onset Fibromyalgia Mother Heart disease Father Hypertension Sister Polycystic kidney disease Sister Hypertension Brother Polycystic kidney disease Brother Family Status - Relation Status Age at Mother Father Sister Brother Normal [facility] MAGNESIUMon 04-30-2023 Magnesium [Mass/Vol] 1.6 mg/dL Low 1.9-2.7 [facility] Comment on above: Performed By: #### L [id number] #### [facility] (BEAKER) [address] [place] [address] PANEL REACTIVE ANTIBODYon HOLD SPECIMEN Hold for add-ons. Normal [facility] Comment on above: Result Comment: Auto resulted. Performed By: #### L [id number] #### [facility] (BEAKER) [address] [place] [address] PHOSPHORUSon 04-30-2023 Magnesium [Mass/Vol] 2.3 mg/dL Low 2.5-5.0 [facility] Comment on above: Performed By: #### L [id number] #### [facility] (BEAKER) [address] [place] [address] SINGLE ANTIGEN CLASS Ion AB SCREEN COMMENTS No Class I donor spe cific antibody identified Normal [facility] Comment on above: Performed By: #### L [id number] #### [facility] ([facility]) [address] [place] [address] CLASS I TESTED DATE Normal [facility] Comment on above: Performed By: #### L [id number] #### [facility] ([facility]) [address] [place] [address] SIGNED BY Signed by Nelson escamilla CHT[facility] MT(ASCP), Telephone Information Supervisor Transplant Immunology [facility] Comment on above: Result Comment: Clas s I Antigen Microbeads Performed By: #### L [id number] #### [facility] ([facility]) [address] [place] [address] Performed By: #### L [id number] #### [facility] ([facility]) [address] [place] [address] SINGLE ANTIGEN CLASS 1 TEST METHOD Class I Single Antigen Normal [facility] Comment on above: Performed By: #### L [id number] #### [facility] ([facility]) [address] [place] [address] SINGLE ANTIGEN CLASS IIon AB SCREEN COMMENTS No Class II donor specific antibody identified Normal [facility] Comment on above: Performed By: #### L [id number] #### [facility] ([facility]) [address] [place] [address] CLASS II TESTED DATE [facility] Comment on above: Performed By: #### L [id number] #### [facility] ([facility]) [address] [place] [address] SINGLE ANTIGEN CLASS 2 TEST METHOD Class II Single Antigen Normal [facility] Comment on above: Result Comment: Clas s II Antigen Microbeads Performed By: #### L [id number] #### [facility] ([facility]) [address] [place] [address] TACROLIMUS LEVELon Tacrolimus (Bld) [Mass/Vol] 9.3 ng/mL Normal 5.0-20.0 [facility] Comment on above: Result Comment: The MARCELO BACK ORDER CLERK Tacrolimus assay is a delayed one-step immunoassay for the quantitative determination of tacrolimus in human whole blood using the chemiluminescent microparticle immunoassay (CMIA) technology with flexible assay protocols, referred to as Chemiflex. Performed By: #### L [id number] #### [facility] ([employer]) [address] [place] [address] URIC ACIDon 04-30-2023 Magnesium [Mass/Vol] 4.9 mg/dL Normal 2.3-6.6 [facility] Comment on above: Performed By: #### L [id number] #### [facility] ([employer]) [address] [place] [address] Follow-Upon 04-16-2023 Follow-Up [id number] Antonio Puri i 1975 F Date Provider Department Center 04/16/2023 SUJIT HINOJOSA TXP None Family History Problem Relation Age of Onset Fibromyalgia Mother Heart disease Father Hypertension Sister Polycystic kidney disease Sister Hypertension Brother Polycystic kidney disease Brother Family Status - Relation Status Age at Mother Father Sister Brother Level of Service:89007 [place] OFFICE/OUTPATIENT ESTABLISHED MOD MDM 30-39 MIN Reason for Visit and Comments: Kidney Follow-up [] - Patient has concerns of feeling worse, increased urinating, issues with the prednisone, angry Normal [facility] BASIC METABOLIC PANELon 03-07 Anion gap [Moles/Vol] 14 mmol/L Normal 7-20 [facility] Comment on above: Performed By: #### L [id number] #### [facility] ([employer]) [address] [place] [address] Calcium [Mass/Vol] 9.4 mg/dL Normal 8.6-10.3 [facility] Comment on above: Performed By: #### L [id number] #### [facility] ([employer]) [address] [place] [address] Chloride [Moles/Vol] 104 mmol/L Normal 98-107 [facility] Comment on above: Performed By: #### L [id number] #### [facility] ([facility]) [address] [place] [address] CO2 [Moles/Vol] 24 mmol/L Normal 21-31 [facility] Comment on above: Performed By: #### L [id number] #### [facility] ([facility]) [address] [place] [address] Creatinine [Mass/Vol] 1.26 mg/dL High 0.60-1.20 [facility] Comment on above: Performed By: #### L [id number] #### [facility] ([facility]) [address] [place] [address] GLOMERULAR FILTRATION RATE ML/MIN/1.73 SQ M.PREDICTED 53.0 mL/min/1.73m*2 Low >60.0 [facility] Comment on above: Result Comment: The [facility]???s estimated glomerular filtration [...] group of individuals. Performed By: #### L [id number] #### [facility] ([facility]) [address] [place] [address] Glucose [Mass/Vol] 155 mg/dL High 70-100 [facility] Comment on above: Performed By: #### L [id number] #### [facility] ([facility]) [address] [place] [address] Potassium [Moles/Vol] 3.6 mmol/L Normal 3.5-5.1 [facility] Comment on above: Performed By: #### L [id number] #### [facility] ([facility]) [address] [place] [address] Sodium [Moles/Vol] 138 mmol/L Normal 136-145 [facility] Comment on above: Performed By: #### L [id number] #### [facility] ([facility]) [address] [address] Urea nitrogen [Mass/Vol] 19 mg/dL Normal 7-25 [facility] Comment on above: Performed By: #### L [id number] #### [facility] ([facility]) [address] [place] [address] UREA NITROGEN/CREATININE (MASS RATIO) IN SER/PLAS 15.1 Normal [facility] Comment on above: Performed By: #### L [id number] #### [facility] ([facility]) [address] [place] [address] CBC WITH AUTO DIFFERENTIALon 03-31-2023 Basophils (Bld) [#/Vol] 0.07 10*3/uL Normal 0.00-0.20 [facility] Comment on above: Performed By: #### L [id number] #### [facility] ([facility]) [address] [place] [address] Basophils/100 WBC (Bld) 0.9 % Normal 0.0-1.0 [facility] Comment on above: Performed By: #### L [id number] #### [facility] ([facility]) [address] [place] [address] Eosinophils (Bld) [#/Vol] 0.22 10*3/uL Normal 0.00-0.50 [facility] Comment on above: Performed By: #### L [id number] #### [facility] ([facility]) [address] [place] [address] Eosinophils/100 WBC (Bld) 2.9 % Normal 0.0-6.0 [facility] Comment on above: Performed By: #### L [id number] #### [facility] ([facility]) [address] [place] [address] Erythrocyte distribution width (RBC) [Ratio] 14.0 % Normal 11.5-15.0 [facility] Comment on above: Performed By: #### L [id number] #### [facility] ([facility]) [address] [place] [address] ERYTHROCYTE MEAN CORPUSCULAR HEMOGLOBIN CONCENTRATION (G/DL) BY AUTOMATED 32.1 g/dL Normal 32.0-35.0 [facility] Comment on above: Performed By: #### L [id number] #### [facility] ([facility]) [address] [place] [address] Hematocrit (Bld) [Volume fraction] 36.5 % Normal 36.0-48.0 [facility] Comment on above: Performed By: #### L [id number] #### [facility] ([facility]) [address] [place] [address] Hemoglobin (Bld) [Mass/Vol] 11.7 g/dL Low 12.0-15.0 [facility] Comment on above: Performed By: #### L [id number] #### [facility] (BEAKER) [address] [place] [address] Immature granulocytes (Bld) [#/Vol] 0.19 10*3/uL Normal 0.00-0.20 [facility] Comment on above: Performed By: #### L [id number] #### [facility] (BEAKER) [address] [place] [address] Immature granulocytes/100 WBC (Bld) 2.5 % High 0.0-1.0 [facility] Comment on above: Performed By: #### L [id number] #### [facility] (BEAKER) [address] [place] [address] Lymphocytes (Bld) [#/Vol] 1.44 10*3/uL Normal 1.20-4.00 [facility] Comment on above: Performed By: #### L [id number] #### [facility] ([facility]AKER) [address] [place] [address] Lymphocytes/100 WBC (Bld) 19.0 % Low 20.0-45.0 [facility] Comment on above: Performed By: #### L [id number] #### [facility] ([facility]) [address] [place] [id number] MCH (RBC) [Entitic mass] 29.5 pg Normal 27.0-33.0 [facility] Comment on above: Performed By: #### L [id number] #### [facility] ([facility]) [address] [address] MCV (RBC) [Entitic vol] 91.9 fL Normal 82.0-98.0 [facility] Comment on above: Performed By: #### L [id number] #### [facility] ([facility]) [address] [address] Monocytes (Bld) [#/Vol] 0.54 10*3/uL Normal 0.10-1.00 [facility] Comment on above: Performed By: #### L [id number] #### [facility] ([facility]) [address] [place] [address] Monocytes/100 WBC (Bld) 7.1 % Normal 5.0-12.0 [facility] Comment on above: Performed By: #### L [id number] #### [facility] ([facility]) [address] [address] Neutrophils (Bld) [#/Vol] 5.12 10*3/uL Normal 1.60-7.60 [facility] Comment on above: Performed By: #### L [id number] #### [facility] ([facility]) [address] [place] [address] Neutrophils/100 WBC (Bld) 67.6 % Normal 40.0-72.0 [facility] Comment on above: Performed By: #### L [id number] #### [facility] ([facility]) [address] [address] NRBC (PER 100 WBCS) BY AUTOMATED COUNT 0.0 % Normal 0 [facility] Comment on above: Performed By: #### L [id number] #### [facility] ([facility]) [address] [place] [address] PLATELETS (10*3/UL) IN BLOOD AUTOMATED COUNT 274 10*3/uL Normal 150-400 [facility] Comment on above: Performed By: #### L [id number] #### [facility] ([facility]) [address] [place] [address] RBC (Bld) [#/Vol] 3.97 10*6/uL Normal 3.80-5.00 [facility] Comment on above: Performed By: #### L [id number] #### [facility] ([facility]) [address] [place] [address] WBC (Bld) [#/Vol] 7.58 10*3/uL Normal 4.00-10.60 [facility] Comment on above: Performed By: #### L [id number] #### [facility] ([facility]) [address] [place] [address] HEPATIC FUNCTION PANELon Albumin [Mass/Vol] 4.4 g/dL Normal 3.5-5.7 [facility] Comment on above: Performed By: #### L [id number] #### [facility] ([facility]) [address] [place] [address] ALP [Catalytic activity/Vol] 80 U/L Normal 34-104 [facility] Comment on above: Performed By: #### L [id number] #### [facility] ([facility]) [address] [place] [address] ALT [Catalytic activity/Vol] 19 U/L Normal 7-52 [facility] Comment on above: Performed By: #### L [id number] #### [facility] ([facility]) [address] [place] [address] AST [Catalytic activity/Vol] 17 U/L Normal 13-39 [facility] Comment on above: Performed By: #### L [id number] #### [facility] ([facility]) [address] [place] [address] Bilirubin [Mass/Vol] 0.4 mg/dL Normal 0.3-1.0 [facility] Comment on above: Performed By: #### L [id number] #### [facility] ([facility]) [address] [place] [address] Magnesium [Mass/Vol] 0.1 mg/dL Normal 0-0.2 [facility] Comment on above: Performed By: #### L [id number] #### [facility] ([facility]) [address] [place] [address] Protein [Mass/Vol] 7.4 g/dL Normal 6.0-8.3 [facility] Comment on above: Performed By: #### L [id number] #### [facility] ([facility]) [address] [place] [address] LIPID PANELon 03-31-2023 CHOL/HDL 4.9 mg/dL Normal [facility] Comment on above: Performed By: #### L [id number] #### [facility] ([facility]) [address] [place] [address] Cholesterol [Mass/Vol] 240 mg/dL High 120-200 [facility] Comment on above: Performed By: #### L [id number] #### [facility] ([facility]) [address] [place] [address] Magnesium [Mass/Vol] 274 mg/dL High 40-149 [facility] Comment on above: Result Comment: TRIG LYCERIDE REFERENCE RANGE: 20 YEARS AND OLDER CARDIOVASCULAR RISK LESS THAN 150 mg/dL LOW RISK 150 TO 199 mg/dL BORDERLINE RISK 200 mg/dL AND GREATER HIGH RISK Performed By: #### L [id number] #### [facility] ([facility]) [address] [place] [address] Magnesium [Mass/Vol] 136 mg/dL Normal 0-160 [facility] Comment on above: Performed By: #### L [id number] #### [facility] ([facility]) [address] [place] [address] Magnesium [Mass/Vol] 49 mg/dL Normal 23-92 [facility] Comment on above: Performed By: #### L [id number] #### [facility] ([facility]) [address] [place] [address] NON HDL CHOL. (LDL+VLDL) 191 Normal [facility] Comment on above: Performed By: #### L [id number] #### [facility] ([facility]) [address] [place] [address] TOTAL VLDL-C 55 mg/dL High 0-40 [facility] Comment on above: Performed By: #### L [id number] #### [facility] ([facility]) [address] [place] [address] Labon 03-31-2023 Lab [id number] Antonio Puri i 1975 F Date Provider Department Center 03/31/2023 2245-[facility] LAB RESOURCE [facility] Family History Problem Relation Age of Onset Fibromyalgia Mother Heart disease Father Hypertension Sister Polycystic kidney disease Sister Hypertension Brother Polycystic kidney disease Brother Family Status - Relation Status Age at Mother Father Sister Brother Normal [facility] MAGNESIUMon 03-31-2023 Magnesium [Mass/Vol] 1.5 mg/dL Low 1.9-2.7 [facility] Comment on above: Performed By: #### L [id number] #### [facility] ([facility]) [address] [place] [address] PANEL REACTIVE ANTIBODYon HOLD SPECIMEN Hold for add-ons. Normal [facility] Comment on above: Result Comment: Auto resulted. Performed By: #### L [id number] #### [facility] ([facility]) [address] [place] [address] PHOSPHORUSon 03-31-2023 Magnesium [Mass/Vol] 2.6 mg/dL Normal 2.5-5.0 [facility] Comment on above: Performed By: #### L [id number] #### [facility] ([facility]) [address] [place] [address] SINGLE ANTIGEN CLASS Ion AB SCREEN COMMENTS No Class I donor spe cific antibody identified Normal [facility] Comment on above: Performed By: #### L [id number] #### [facility] ([facility]) [address] [place] [address] CLASS I TESTED DATE Normal [facility] Comment on above: Performed By: #### L [id number] #### [facility] ([facility]) [address] [place] [address] SIGNED BY Signed by Nelson escamilla CHT([facility]) MT([facility] Telephone Information Supervisor Transplant Immunology [facility] Comment on above: Result Comment: Clas s I Antigen Microbeads Performed By: #### L [id number] #### [facility] ([facility]) [address] [place] [address] Performed By: #### L [id number] #### [facility] ([facility]) [address] [place] [address] SINGLE ANTIGEN CLASS 1 TEST METHOD Class I Single Antigen Normal [facility] Comment on above: Performed By: #### L [id number] #### [facility] ([facility]) [address] [place] [address] SINGLE ANTIGEN CLASS IIon AB SCREEN COMMENTS No Class II donor specific antibody identified Normal [facility] Comment on above: Performed By: #### L [id number] #### [facility] ([facility]) [address] [place] [address] CLASS II TESTED DATE [facility] Comment on above: Performed By: #### L [id number] #### [facility] ([facility]) [address] [place] [address] SINGLE ANTIGEN CLASS 2 TEST METHOD Class II Single Antigen Normal [facility] Comment on above: Result Comment: Clas s II Antigen Microbeads Performed By: #### L [id number] #### [facility] ([facility] [address] [place] [address] TACROLIMUS LEVELon Tacrolimus (Bld) [Mass/Vol] 6.2 ng/mL Normal 5.0-20.0 [facility] Comment on above: Result Comment: The MARCELO BACK ORDER CLERK Tacrolimus assay is a delayed one-step immunoassay for the quantitative determination of tacrolimus in human whole blood using the chemiluminescent microparticle immunoassay (CMIA) technology with flexible assay protocols, referred to as Chemiflex. Performed By: #### L [id number] #### [facility] ([facility]) [address] [place] [address] URIC ACIDon 03-31-2023 Magnesium [Mass/Vol] 5.3 mg/dL Normal 2.3-6.6 [facility] Comment on above: Performed By: #### L [id number] #### [facility] ([facility]) [address] [place] [address] 36on 02-28-2023 36 Refill is too soon, just sent over with 3 refills Normal [facility] Orders Onlyon 02-28-2023 Orders Only [id number] Antonio Puri i 1975 F Date Provider Department Center 02/28/2023 [id number]ER TXP None Family History Problem Relation Age of Onset Fibromyalgia Mother Heart disease Father Hypertension Sister Polycystic kidney disease Sister Hypertension Brother Polycystic kidney disease Brother Family Status - Relation Status Age at Mother Father Sister Brother Normal [facility] BASIC METABOLIC PANELon 05 Anion gap [Moles/Vol] 13 mmol/L Normal 7-20 [facility] Comment on above: Performed By: #### L [id number] #### [facility] ([facility]) [address] [place] [address] Calcium [Mass/Vol] 8.7 mg/dL Normal 8.6-10.3 [facility] Comment on above: Performed By: #### L [id number] #### [facility] ([facility] [address] [place] [address] Chloride [Moles/Vol] 104 mmol/L Normal 98-107 [facility] Comment on above: Performed By: #### L [id number] #### [facility] ([facility]) [address] [place] [id number] CO2 [Moles/Vol] 23 mmol/L Normal 21-31 [facility] Comment on above: Performed By: #### L [id number] #### [facility] ([facility]) [address] [place] [address] Creatinine [Mass/Vol] 1.21 mg/dL High 0.60-1.20 [facility] Comment on above: Performed By: #### L [id number] #### [facility] ([facility]) [address] [place] [address] GLOMERULAR FILTRATION RATE ML/MIN/1.73 SQ M.PREDICTED 55.6 mL/min/1.73m*2 Low >60.0 [facility] Comment on above: Result Comment: [facility]???s estimated glomerular filtration [...] individuals. Performed By: #### L [id number] #### [facility] ([facility]) [address] [place] [id number] Glucose [Mass/Vol] 154 mg/dL High 70-100 [facility] Comment on above: Performed By: #### L [id number] #### [facility] ([facility]) [address] [place] [address] Potassium [Moles/Vol] 3.3 mmol/L Low 3.5-5.1 [facility] Comment on above: Performed By: #### L [id number] #### [facility] [facility] ([facility]) [address] [place] [address] Sodium [Moles/Vol] 137 mmol/L Normal 136-145 [facility] Comment on above: Performed By: #### L [id number] #### [facility] ([facility]) [address] [place] [address] Urea nitrogen [Mass/Vol] 19 mg/dL Normal 7-25 [facility] Comment on above: Performed By: #### L [id number] #### [facility] ([facility]) [address] [place] [address] UREA NITROGEN/CREATININE (MASS RATIO) IN SER/PLAS 15.7 Normal [facility] Comment on above: Performed By: #### L [id number] #### [facility] ([facility]) [address] [place] [address] BK VIRUS, PLASMA, QUANTITATI VEon 02-24-2023 BK QUANTITATION Not detected Normal Not Detected [facility] Comment on above: Result Comment: Meth od: BK virus was measured by quantitative polymerase chain reaction using a fluorescent hydrolysis probe targeting the polyomavirus BK ARTILLERY OR NAVAL GUNFIRE OBSERVER-1 gene. The lower limit of quantitation of the assay is 500 copies of BK genome per milliliter of plasma or urine, and any detectable BK DNA below that level is reported as: Detected, <500 copies/ml. Serial BK virus measurement can be used to monitor disease activity. (Reference: Gordon chaneyl. J CLIN MICRO 2004; 42:4072-2338). This test was developed and its performance characteristics determined by the [facility]. It has not been approved by the US Food and Drug Administration. However, such approval is not required for clinical implementation, and test results have been shown to be clinically useful. This laboratory is CAP accredited and CLIA certified to perform high complexity testing. Performed By: #### L [id number] #### [facility] ([facility]) [address] [place] [address] BK QUANTITATION LOG Not detected Normal Not Detected [facility] Comment on above: Performed By: #### L [id number] #### [facility] ([facility]) [address] [place] [address] CBC WITH AUTO DIFFERENTIALon 02-24-2023 Basophils (Bld) [#/Vol] 0.05 10*3/uL Normal 0.00-0.20 [facility] Comment on above: Performed By: #### L [id number] #### [facility] ([facility]) [address] [place] [address] Basophils/100 WBC (Bld) 0.7 % Normal 0.0-1.0 [facility] Comment on above: Performed By: #### L [id number] #### [facility] ([facility]) [address] [place] [address] Eosinophils (Bld) [#/Vol] 0.17 10*3/uL Normal 0.00-0.50 [facility] Comment on above: Performed By: #### L [id number] #### [facility] ([facility]) [address] [place] [address] Eosinophils/100 WBC (Bld) 2.5 % Normal 0.0-6.0 [facility] Comment on above: Performed By: #### L [id number] #### [facility] ([facility]) [address] [place] [address] Erythrocyte distribution width (RBC) [Ratio] 15.4 % High 11.5-15.0 [facility] Comment on above: Performed By: #### L [id number] #### [facility] ([facility]) [address] [place] [address] ERYTHROCYTE MEAN CORPUSCULAR HEMOGLOBIN CONCENTRATION (G/DL) BY AUTOMATED 32.7 g/dL Normal 32.0-35.0 [facility] Comment on above: Performed By: #### L [id number] #### [facility] ([facility]) [address] [place] [address] Hematocrit (Bld) [Volume fraction] 30.3 % Low 36.0-48.0 [facility] Comment on above: Performed By: #### L [id number] #### [facility] ([facility]) [address] [place] [address] Hemoglobin (Bld) [Mass/Vol] 9.9 g/dL Low 12.0-15.0 [facility] Comment on above: Performed By: #### L [id number] #### [facility] [address] [place] [address] Immature granulocytes (Bld) [#/Vol] 0.13 10*3/uL Normal 0.00-0.20 [facility] Comment on above: Performed By: #### L [id number] #### [facility] ([facility]) [address] [place] [address] Immature granulocytes/100 WBC (Bld) 1.9 % High 0.0-1.0 [facility] Comment on above: Performed By: #### L [id number] #### [facility] ([facility]) [address] [place] [address] Lymphocytes (Bld) [#/Vol] 1.43 10*3/uL Normal 1.20-4.00 [facility] Comment on above: Performed By: #### L [id number] #### [facility] ([facility]) [address] [place] [address] Lymphocytes/100 WBC (Bld) 21.0 % Normal 20.0-45.0 [facility] Comment on above: Performed By: #### L [id number] #### [facility] ([facility]) [address] [place] [address] MCH (RBC) [Entitic mass] 30.7 pg Normal 27.0-33.0 [facility] Comment on above: Performed By: #### L [id number] #### [facility] [address] [place] [address] MCV (RBC) [Entitic vol] 93.8 fL Normal 82.0-98.0 [facility] Comment on above: Performed By: #### L [id number] #### [facility] [address] [place] [address] Monocytes (Bld) [#/Vol] 0.51 10*3/uL Normal 0.10-1.00 [facility] Comment on above: Performed By: #### L [id number] #### [facility] [address] [place] [address] Monocytes/100 WBC (Bld) 7.5 % Normal 5.0-12.0 [facility] Comment on above: Performed By: #### L [id number] #### [facility] ([facility]) [address] [place] [address] Neutrophils (Bld) [#/Vol] 4.52 10*3/uL Normal 1.60-7.60 [facility] Comment on above: Performed By: #### L [id number] #### [facility] ([facility]) [address] [place] [address] Neutrophils/100 WBC (Bld) 66.4 % Normal 40.0-72.0 [facility] Comment on above: Performed By: #### L [id number] #### [facility] ([facility]) [address] [place] [address] NRBC (PER 100 WBCS) BY AUTOMATED COUNT 0.3 % High 0 [facility] Comment on above: Performed By: #### L [id number] #### [facility] ([facility]) [address] [place] [address] PLATELETS (10*3/UL) IN BLOOD AUTOMATED COUNT 218 10*3/uL Normal 150-400 [facility] Comment on above: Performed By: #### L [id number] #### [facility] ([facility]) [address] [place] [address] RBC (Bld) [#/Vol] 3.23 10*6/uL Low 3.80-5.00 [facility] Comment on above: Performed By: #### L [id number] #### [facility] [address] [place] [address] WBC (Bld) [#/Vol] 6.81 10*3/uL Normal 4.00-10.60 [facility] Comment on above: Performed By: #### L [id number] #### [facility] ([facility]) [address] [place] [address] HEMOGLOBIN A1Con 02-24-2023 Glucose [Mass/Vol] 108 mg/dL Normal [facility] Comment on above: Performed By: #### L [id number] #### [facility] ([facility]) [address] [place] [address] HbA1c (Bld) [Mass fraction] 5.4 % Normal 4.0-6.0 [facility] Comment on above: Performed By: #### L [id number] #### [facility] ([facility]) [address] [place] [address] HEPATIC FUNCTION PANELon Albumin [Mass/Vol] 4.3 g/dL Normal 3.5-5.7 [facility] Comment on above: Performed By: #### L [id number] #### [facility] ([facility]) [address] [place] [address] ALP [Catalytic activity/Vol] 79 U/L Normal 34-104 [facility] Comment on above: Performed By: #### L [id number] #### [facility] ([facility]) [address] [place] [address] ALT [Catalytic activity/Vol] 21 U/L Normal 7-52 [facility] Comment on above: Performed By: #### L [id number] #### [facility] ([facility]) [address] [place] [address] AST [Catalytic activity/Vol] 18 U/L Normal 13-39 [facility] Comment on above: Performed By: #### L [id number] #### [facility] ([facility]) [address] [place] [address] Bilirubin [Mass/Vol] 0.5 mg/dL Normal 0.3-1.0 [facility] Comment on above: Performed By: #### L [id number] #### [facility] ([facility]) [address] [place] [address] Magnesium [Mass/Vol] 0.1 mg/dL Normal 0-0.2 [facility] Comment on above: Performed By: #### L [id number] #### [facility] ([facility]) [address] [place] [address] Protein [Mass/Vol] 6.8 g/dL Normal 6.0-8.3 [facility] Comment on above: Performed By: #### L [id number] #### [facility] ([facility]) [address] [place] [address] LIPID PANELon 02-24-2023 CHOL/HDL 4.6 mg/dL Normal [facility] Comment on above: Performed By: #### L [id number] #### [facility] ([facility]) [address] [place] [address] Cholesterol [Mass/Vol] 211 mg/dL High 120-200 [facility] Comment on above: Performed By: #### L [id number] #### [facility] ([facility]) [address] [place] [address] Magnesium [Mass/Vol] 263 mg/dL High 40-149 [facility] Comment on above: Result Comment: TRIG LYCERIDE REFERENCE RANGE: 20 YEARS AND OLDER CARDIOVASCULAR RISK LESS THAN 150 mg/dL LOW RISK 150 TO 199 mg/dL BORDERLINE RISK 200 mg/dL AND GREATER HIGH RISK Performed By: #### L [id number] #### [facility] ([facility]) [address] [place] [address] Magnesium [Mass/Vol] 112 mg/dL Normal 0-160 [facility] Comment on above: Performed By: #### L [id number] #### [facility] ([facility]) [address] [place] [address] Magnesium [Mass/Vol] 46 mg/dL Normal 23-92 [facility] Comment on above: Performed By: #### L [id number] #### [facility] ([facility]) [address] [place] [address] NON HDL CHOL. (LDL+VLDL) 165 Normal [facility] Comment on above: Performed By: #### L [id number] #### [facility] ([facility]) [address] [place] [address] TOTAL VLDL-C 53 mg/dL High 0-40 [facility] Comment on above: Performed By: #### L [id number] #### [facility] ([facility]) [address] [place] [address] Labon 02-24-2023 Lab [id number] Antonio Puri i 1975 F Date Provider Department Center 02/24/2023 2245-[facility] LAB RESOURCE [facility] MD Medical C Family History Problem Relation Age of Onset Fibromyalgia Mother Heart disease Father Hypertension Sister Polycystic kidney disease Sister Hypertension Brother Polycystic kidney disease Brother Family Status - Relation Status Age at Mother Father Sister Brother Normal [facility] MAGNESIUMon 02-24-2023 Magnesium [Mass/Vol] 1.7 mg/dL Low 1.9-2.7 [facility] Comment on above: Performed By: #### L [id number] #### [facility] ([facility]) [address] [place] [address] PANEL REACTIVE ANTIBODYon HOLD SPECIMEN Hold for add-ons. Normal [facility] Comment on above: Result Comment: Auto resulted. Performed By: #### L [id number] #### [facility] ([facility]) [address] [place] [address] PHOSPHORUSon 02-24-2023 Magnesium [Mass/Vol] 2.3 mg/dL Low 2.5-5.0 [facility] Comment on above: Performed By: #### L [id number] #### [facility] ([facility]) [address] [place] [address] SINGLE ANTIGEN CLASS Ion AB SCREEN COMMENTS No Class I donor spe cific antibody identified Normal [facility] Comment on above: Performed By: #### L [id number] #### [facility] ([facility]) [address] [place] [address] CLASS I TESTED DATE Normal [facility] Comment on above: Performed By: #### L [id number] #### [facility] ([facility]) [address] [place] [address] SINGLE ANTIGEN CLASS 1 TEST METHOD Class I Single Antigen Normal [facility] Comment on above: Performed By: #### L [id number] #### [facility] ([facility]) [address] [place] [address] SINGLE ANTIGEN CLASS IIon AB SCREEN COMMENTS No Class II donor specific antibody identified [facility] Comment on above: Performed By: #### L [id number] #### [facility] ([facility]) [address] [place] [address] CLASS II TESTED DATE [facility] Comment on above: Performed By: #### L [id number] #### [facility] ([facility]) [address] [place] [address] SIGNED BY Signed by Nelson escamilla CHT([facility]) PARKER([facility]), Telephone Information Supervisor Transplant Immunology [facility] Comment on above: Performed By: #### L [id number] #### [facility] ([facility]) [address] [place] [address] Result Comment: Clas s I Antigen Microbeads Performed By: #### L [id number] #### [facility] ([facility]) [address] [place] [address] SINGLE ANTIGEN CLASS 2 TEST METHOD Class II Single Antigen Normal [facility] Comment on above: Result Comment: Clas s II Antigen Microbeads Performed By: #### L [id number] #### [facility] ([facility]) [address] [place] [address] TACROLIMUS LEVELon 3 Tacrolimus (Bld) [Mass/Vol] 5.9 ng/mL Normal 5.0-20.0 [facility] Comment on above: Result Comment: The MARCELO BACK ORDER CLERK Tacrolimus assay is a delayed one-step immunoassay for the quantitative determination of tacrolimus in human whole blood using the chemiluminescent microparticle immunoassay (CMIA) technology with flexible assay protocols, referred to as Chemiflex. Performed By: #### L [id number] #### [facility] [address] [place] [address] URIC ACIDon 02-24-2023 Magnesium [Mass/Vol] 4.6 mg/dL Normal 2.3-6.6 [facility] Comment on above: Performed By: #### L [id number] #### [facility] ([facility]) [address] [place] [address] Follow-Upon 02-03-2023 Follow-Up [id number] Antonio Puri i 1975 F Date Provider Department Center 02/03/2023 MARYBETH TOVAR None Family History Problem Relation Age of Onset Fibromyalgia Mother Heart disease Father Hypertension Sister Polycystic kidney disease Sister Hypertension Brother Polycystic kidney disease Brother Family Status - Relation Status Age at Mother Father Sister Brother Level of Service:89944 [place] OFFICE/OUTPATIENT ESTABLISHED MOD MDM 30-39 MIN Reason for Visit and Comments: Kidney Follow-up [] - Patient would like to discuss Lipitor and body aches. She states she can not get out of bed. Patient states she has been short of breath. Normal [facility] BASIC METABOLIC PANELon 01-05 Anion gap [Moles/Vol] 13 mmol/L Normal 7-20 [facility] Comment on above: Performed By: #### L [id number] #### [facility] [address] [place] [address] Calcium [Mass/Vol] 9.2 mg/dL Normal 8.6-10.3 [facility] Comment on above: Performed By: #### L [id number] #### [facility] [address] [place] [address] Chloride [Moles/Vol] 104 mmol/L Normal 98-107 [facility] Comment on above: Performed By: #### L [id number] #### [facility] ([facility]) [address] [place] [id number] CO2 [Moles/Vol] 24 mmol/L Normal 21-31 [facility] Comment on above: Performed By: #### L [id number] #### [facility] ([facility]) [address] [place] [id number] Creatinine [Mass/Vol] 1.39 mg/dL High 0.60-1.20 [facility] Comment on above: Performed By: #### L [id number] #### [facility] ([facility]) [address] [place] [id number] GLOMERULAR FILTRATION RATE ML/MIN/1.73 SQ M.PREDICTED 47.1 mL/min/1.73m*2 Low >60.0 [facility] Comment on above: Result Comment: The [facility]???s estimated glomerular filtration [...] individuals. Performed By: #### L [id number] #### [facility] ([facility]) [address] [place] [id number] Glucose [Mass/Vol] 174 mg/dL High 70-100 [facility] Comment on above: Performed By: #### L [id number] #### [facility] ([facility]) [address] [place] [id number] Potassium [Moles/Vol] 3.8 mmol/L Normal 3.5-5.1 [facility] Comment on above: Performed By: #### L [id number] #### [facility] [address] [place] [id number] Sodium [Moles/Vol] 137 mmol/L Normal 136-145 [facility] Comment on above: Performed By: #### L [id number] #### [facility] ([facility]) [address] [place] [address] Urea nitrogen [Mass/Vol] 20 mg/dL Normal 7-25 [facility] Comment on above: Performed By: #### L [id number] #### [facility] ([facility]) [address] [place] [address] UREA NITROGEN/CREATININE (MASS RATIO) IN SER/PLAS 14.4 Normal [facility] Comment on above: Performed By: #### L [id number] #### [facility] ([facility]) [address] [place] [id number] CBC WITH AUTO DIFFERENTIALon 02-01-2023 Basophils (Bld) [#/Vol] 0.07 10*3/uL Normal 0.00-0.20 [facility] Comment on above: Performed By: #### L [id number] #### [facility] ([facility]) [address] [place] [address] Basophils/100 WBC (Bld) 0.8 % Normal 0.0-1.0 [facility] Comment on above: Performed By: #### L [id number] #### [facility] ([facility]) [address] [place] [address] Eosinophils (Bld) [#/Vol] 0.36 10*3/uL Normal 0.00-0.50 [facility] Comment on above: Performed By: #### L [id number] #### [facility] ([facility]) [address] [place] [address] Eosinophils/100 WBC (Bld) 4.2 % Normal 0.0-6.0 [facility] Comment on above: Performed By: #### L [id number] #### [facility] ([facility]) [address] [place] [address] Erythrocyte distribution width (RBC) [Ratio] 14.7 % Normal 11.5-15.0 [facility] Comment on above: Performed By: #### L [id number] #### [facility] [address] [place] [address] ERYTHROCYTE MEAN CORPUSCULAR HEMOGLOBIN CONCENTRATION (G/DL) BY AUTOMATED 33.0 g/dL Normal 32.0-35.0 [facility] Comment on above: Performed By: #### L [id number] #### [facility] [address] [place] [address] Hematocrit (Bld) [Volume fraction] 30.9 % Low 36.0-48.0 [facility] Comment on above: Performed By: #### L [id number] #### [facility] ([facility]) [address] [place] [address] Hemoglobin (Bld) [Mass/Vol] 10.2 g/dL Low 12.0-15.0 [facility] Comment on above: Performed By: #### L [id number] #### [facility] ([facility]) [address] [place] [address] Immature granulocytes (Bld) [#/Vol] 0.14 10*3/uL Normal 0.00-0.20 [facility] Comment on above: Performed By: #### L [id number] #### [facility] ([facility]) [address] [address] Immature granulocytes/100 WBC (Bld) 1.6 % High 0.0-1.0 [facility] Comment on above: Performed By: #### L [id number] #### [facility] ([facility]) [address] [place] [address] Lymphocytes (Bld) [#/Vol] 0.58 10*3/uL Low 1.20-4.00 [facility] Comment on above: Performed By: #### L [id number] #### [facility] ([facility]) [address] [place] [address] Lymphocytes/100 WBC (Bld) 6.7 % Low 20.0-45.0 [facility] Comment on above: Performed By: #### L [id number] #### [facility] ([facility]) [address] [place] [id number] MCH (RBC) [Entitic mass] 31.1 pg Normal 27.0-33.0 [facility] Comment on above: Performed By: #### L [id number] #### [facility] ([facility]) [address] [place] [id number] MCV (RBC) [Entitic vol] 94.2 fL Normal 82.0-98.0 [facility] Comment on above: Performed By: #### L [id number] #### [facility] ([facility]) [address] [place] [address] Monocytes (Bld) [#/Vol] 0.59 10*3/uL Normal 0.10-1.00 [facility] Comment on above: Performed By: #### L [id number] #### [facility] ([facility]) [address] [place] [address] Monocytes/100 WBC (Bld) 6.9 % Normal 5.0-12.0 [facility] Comment on above: Performed By: #### L [id number] #### [facility] ([facility]) [address] [place] [address] Neutrophils (Bld) [#/Vol] 6.87 10*3/uL Normal 1.60-7.60 [facility] Comment on above: Performed By: #### L [id number] #### [facility] ([facility]) [address] [place] [address] Neutrophils/100 WBC (Bld) 79.8 % High 40.0-72.0 [facility] Comment on above: Performed By: #### L [id number] #### [facility] ([facility]) [address] [place] [id number] NRBC (PER 100 WBCS) BY AUTOMATED COUNT 0.0 % Normal 0 [facility] Comment on above: Performed By: #### L [id number] #### [facility] ([facility]) [address] [place] [address] PLATELETS (10*3/UL) IN BLOOD AUTOMATED COUNT 233 10*3/uL Normal 150-400 [facility] Comment on above: Performed By: #### L [id number] #### [facility] ([facility]) [address] [place] [address] RBC (Bld) [#/Vol] 3.28 10*6/uL Low 3.80-5.00 [facility] Comment on above: Performed By: #### L [id number] #### [facility] ([facility]) [address] [place] [address] WBC (Bld) [#/Vol] 8.61 10*3/uL Normal 4.00-10.60 [facility] Comment on above: Performed By: #### L [id number] #### [facility] ([facility]) [address] [place] [address] CKon 02-01-2023 CREATINE KINASE (U/L) IN SER/PLAS 26.0 U/L Low 30.0-223.0 [facility] Comment on above: Performed By: #### L [id number] #### [facility] ([facility]) [address] [place] [address] HEPATIC FUNCTION PANELon Albumin [Mass/Vol] 4.2 g/dL Normal 3.5-5.7 [facility] Comment on above: Performed By: #### L [id number] #### [facility] ([facility]) [address] [place] [address] ALP [Catalytic activity/Vol] 85 U/L Normal 34-104 [facility] Comment on above: Performed By: #### L [id number] #### [facility] ([facility]) [address] [place] [address] ALT [Catalytic activity/Vol] 26 U/L Normal 7-52 [facility] Comment on above: Performed By: #### L [id number] #### [facility] ([facility] [address] [place] [address] AST [Catalytic activity/Vol] 18 U/L Normal 13-39 [facility] Comment on above: Performed By: #### L [id number] #### [facility] ([facility]) [address] [place] [address] Bilirubin [Mass/Vol] 0.6 mg/dL Normal 0.3-1.0 [facility] Comment on above: Performed By: #### L [id number] #### [facility] ([facility]) [address] [place] [address] Magnesium [Mass/Vol] 0.1 mg/dL Normal 0-0.2 [facility] Comment on above: Performed By: #### L [id number] #### [facility] ([facility]) [address] [place] [address] Protein [Mass/Vol] 6.8 g/dL Normal 6.0-8.3 [facility] Comment on above: Performed By: #### L [id number] #### [facility] ([facility]) [address] [place] [address] LIPID PANELon 02-01-2023 CHOL/HDL 4.0 mg/dL Normal [facility] Comment on above: Performed By: #### L [id number] #### [facility] ([facility]) [address] [place] [address] Cholesterol [Mass/Vol] 194 mg/dL Normal 120-[address] [facility] Comment on above: Performed By: #### L [id number] #### [facility] ([facility] [address] [place] [address] Magnesium [Mass/Vol] 258 mg/dL High 40-149 [facility] Comment on above: Result Comment: TRIG LYCERIDE REFERENCE RANGE: 20 YEARS AND OLDER CARDIOVASCULAR RISK LESS THAN 150 mg/dL LOW RISK 150 TO 199 mg/dL BORDERLINE RISK 200 mg/dL AND GREATER HIGH RISK Performed By: #### L [id number] #### [facility] ([facility]) [address] [place] [address] Magnesium [Mass/Vol] 93 mg/dL Normal 0-160 [facility] Comment on above: Performed By: #### L [id number] #### [facility] ([facility]) [address] [place] [address] Magnesium [Mass/Vol] 49 mg/dL Normal 23-92 [facility] Comment on above: Performed By: #### L [id number] #### [facility] ([facility]) [address] [place] [address] NON HDL CHOL. (LDL+VLDL) 145 Normal [facility] Comment on above: Performed By: #### L [id number] #### [facility] ([facility]) [address] [place] [address] TOTAL VLDL-C 52 mg/dL High 0-40 [facility] Comment on above: Performed By: #### L [id number] #### [facility] ([facility]) [address] [place] [address] Labon 02-01-2023 Lab [id number] Antonio Puri i 1975 F Date Provider Department Center 02/01/2023 2245-[facility] OPD LAB RESOURCE [facility] OPD [facility] Family History Problem Relation Age of Onset Fibromyalgia Mother Heart disease Father Hypertension Sister Polycystic kidney disease Sister Hypertension Brother Polycystic kidney disease Brother Family Status - Relation Status Age at Mother Father Sister Brother Normal [facility] MAGNESIUMon 02-01-2023 Magnesium [Mass/Vol] 1.6 mg/dL Low 1.9-2.7 [facility] Comment on above: Performed By: #### L [id number] #### [facility] ([facility]) [address] [place] [address] MYOGLOBIN, SERUMon MYOGLOBIN (NG/ML) IN SER/PLAS 30 ng/mL Normal 0-90 [facility] Comment on above: Result Comment: A DO UBLING OF VALUES FROM SERIAL BLOOD COLLECTIONS (1 - 2 HOURS APART) IS MORE INDICATIVE OF A M.I. THAN THE ABSOLUTE VALUE. Performed By: #### L [id number] #### [facility] ([facility]) [address] [place] [address] PHOSPHORUSon 02-01-2023 Magnesium [Mass/Vol] 3.0 mg/dL Normal 2.5-5.0 [facility] Comment on above: Performed By: #### L [id number] #### [facility] ([facility]) [address] [place] [address] TACROLIMUS LEVELon 3 Tacrolimus (Bld) [Mass/Vol] 7.0 ng/mL Normal 5.0-20.0 [facility] Comment on above: Result Comment: The MARCELO BACK ORDER CLERK Tacrolimus assay is a delayed one-step immunoassay for the quantitative determination of tacrolimus in human whole blood using the chemiluminescent microparticle immunoassay (CMIA) technology with flexible assay protocols, referred to as Chemiflex. Performed By: #### L [id number] #### [facility] ([facility]) [address] [place] [address] URIC ACIDon 02-01-2023 Magnesium [Mass/Vol] 3.9 mg/dL Normal 2.3-6.6 [facility] Comment on above: Performed By: #### L [id number] #### [facility] ([facility]) [address] [place] [address] Labon 01-17-2023 Lab [id number] Antonio Puri i 1975 F Date Provider Department [place] 01/17/2023 2245-[facility] OPD LAB RESOURCE [facility] O[facility] MD Medical C Family History Problem Relation Age of Onset Fibromyalgia Mother Heart disease Father Hypertension Sister Polycystic kidney disease Sister Hypertension Brother Polycystic kidney disease Brother Family Status - Relation Status Age at Mother Father Sister Brother Normal [facility] TACROLIMUS LEVELon 3 Tacrolimus (Bld) [Mass/Vol] 7.8 ng/mL Normal 5.0-20.0 [facility] Comment on above: Result Comment: The MARCELO BACK ORDER CLERK Tacrolimus assay is a delayed one-step immunoassay for the quantitative determination of tacrolimus in human whole blood using the chemiluminescent microparticle immunoassay (CMIA) technology with flexible assay protocols, referred to as Chemiflex. Performed By: #### L [id number] #### [facility] ([facility]) [address] [place] [address] Labon 01-09-2023 Lab [id number] Antonio Puri i 1975 Provider Department Center 01/09/2023[facility] LAB RESOURCE [facility] O[facility] MD Medical C Family History Problem Relation Age of Onset Fibromyalgia Mother Heart disease Father Hypertension Sister Polycystic kidney disease Sister Hypertension Brother Polycystic kidney disease Brother Family Status - Relation Status Age at Mother Father Sister Brother Normal [facility] TACROLIMUS LEVELon 3 Tacrolimus (Bld) [Mass/Vol] 4.4 ng/mL Low 5.0-20.0 [facility] Comment on above: Result Comment: The MARCELO BACK ORDER CLERK Tacrolimus assay is a delayed one-step immunoassay for the quantitative determination of tacrolimus in human whole blood using the chemiluminescent microparticle immunoassay (CMIA) technology with flexible assay protocols, referred to as Chemiflex. Performed By: #### L [id number] #### [facility] ([facility]) [address] [place] [address] Labon 01-01-2023 Lab [id number] Khushi,Brand i 1975 Provider Department Center 01/01/[address] [place] [address] [facility] Family History Problem Relation Age of Onset Fibromyalgia Mother Heart disease Father Hypertension Sister Polycystic kidney disease Sister Hypertension Brother Polycystic kidney disease Brother Family Status - Relation Status Age at Mother Father Sister Brother Normal [facility] TACROLIMUS LEVELon 3 Tacrolimus (Bld) [Mass/Vol] 10.0 ng/mL Normal 5.0-20.0 [facility] Comment on above: Result Comment: The MARCELO BACK ORDER CLERK Tacrolimus assay is a delayed one-step immunoassay for the quantitative determination of tacrolimus in human whole blood using the chemiluminescent microparticle immunoassay (CMIA) technology with flexible assay protocols, referred to as Chemiflex. Performed By: #### L [id number] #### [facility] ([facility]) [address] [place] [address] BASIC METABOLIC PANELon 03-2 2-2023 Anion gap [Moles/Vol] 13 mmol/L Normal 7-20 [facility] Comment on above: Performed By: #### L [id number] #### [facility] ([facility]) [address] [place] [address] Calcium [Mass/Vol] 9.4 mg/dL Normal 8.6-10.3 [facility] Comment on above: Performed By: #### L [id number] #### [facility] ([facility]) [address] [place] [address] Chloride [Moles/Vol] 103 mmol/L Normal 98-107 [facility] Comment on above: Performed By: #### L [id number] #### [facility] ([facility]) [address] [place] [address] CO2 [Moles/Vol] 25 mmol/L Normal 21-31 [facility] Comment on above: Performed By: #### L [id number] #### [facility] ([facility]) [address] [address] Creatinine [Mass/Vol] 1.33 mg/dL High 0.60-1.20 [facility] Comment on above: Performed By: #### L [id number] #### [facility] ([facility]) [address] [place] [address] GLOMERULAR FILTRATION RATE ML/MIN/1.73 SQ M.PREDICTED 49.7 mL/min/1.73m*2 Low >60.0 [facility] Comment on above: Result Comment: The [facility]???s estimated glomerular filtration [...] individuals. Performed By: #### L [id number] #### [facility] ([facility]) [address] [place] [address] Glucose [Mass/Vol] 154 mg/dL High 70-100 [facility] Comment on above: Performed By: #### L [id number] #### [facility] ([facility]) [address] [place] [address] Potassium [Moles/Vol] 3.5 mmol/L Normal 3.5-5.1 [facility] Comment on above: Performed By: #### L [id number] #### [facility] ([facility]) [address] [place] [address] Sodium [Moles/Vol] 137 mmol/L Normal 136-145 [facility] Comment on above: Performed By: #### L [id number] #### [facility] ([facility]) [address] [place] [address] Urea nitrogen [Mass/Vol] 23 mg/dL Normal 7-25 [facility] Comment on above: Performed By: #### L [id number] #### [facility] ([facility]) [address] [place] [address] UREA NITROGEN/CREATININE (MASS RATIO) IN SER/PLAS 17.3 Normal [facility] Comment on above: Performed By: #### L [id number] #### [facility] ([facility]) [address] [place] [address] CBC WITH AUTO DIFFERENTIALon 12-25-2022 Erythrocyte distribution width (RBC) [Ratio] 13.3 % Normal 11.5-15.0 [facility] Comment on above: Performed By: #### L [id number] #### [facility] ([facility]) [address] [address] ERYTHROCYTE MEAN CORPUSCULAR HEMOGLOBIN CONCENTRATION (G/DL) BY AUTOMATED 33.8 g/dL Normal 32.0-35.0 [facility] Comment on above: Performed By: #### L [id number] #### [facility] ([facility]) [address] [place] [address] Hematocrit (Bld) [Volume fraction] 36.4 % Normal 36.0-48.0 [facility] Comment on above: Performed By: #### L [id number] #### [facility] ([facility]) [address] [place] [address] Hemoglobin (Bld) [Mass/Vol] 12.3 g/dL Normal 12.0-15.0 [facility] Comment on above: Performed By: #### L [id number] #### [facility] ([facility]) [address] [place] [address] MCH (RBC) [Entitic mass] 31.9 pg Normal 27.0-33.0 [facility] Comment on above: Performed By: #### L [id number] #### [facility] ([facility]) [address] [place] [address] MCV (RBC) [Entitic vol] 94.5 fL Normal 82.0-98.0 [facility] Comment on above: Performed By: #### L [id number] #### [facility] ([facility]) [address] [place] [address] NRBC (PER 100 WBCS) BY AUTOMATED COUNT 0.0 % Normal 0.0-0.0 [facility] Comment on above: Performed By: #### L [id number] #### [facility] ([facility]) [address] [place] [address] PLATELETS (10*3/UL) IN BLOOD AUTOMATED COUNT 274 10*3/uL Normal 150-400 [facility] Comment on above: Performed By: #### L [id number] #### [facility] ([facility]) [address] [place] [address] RBC (Bld) [#/Vol] 3.85 10*6/uL Normal 3.80-5.00 [facility] Comment on above: Performed By: #### L [id number] #### [facility] ([facility]) [address] [place] [address] WBC (Bld) [#/Vol] 4.30 10*3/uL Normal 4.00-10.60 [facility] Comment on above: Performed By: #### L [id number] #### [facility] ([facility]) [address] [place] [id number] CKon 12-25-2022 CREATINE KINASE (U/L) IN SER/PLAS 32.0 U/L Normal 30.0-223.0 [facility] Comment on above: Performed By: #### L [id number] #### [facility] ([facility]) [address] [place] [id number] Follow-Upon 12-25-2022 Follow-Up [id number] Antonio Puri i 1975 F Date Provider Department Center 12/25/2022 AGUILA HUTCHINS TXP None Family History Problem Relation Age of Onset Fibromyalgia Mother Heart disease Father Hypertension Sister Polycystic kidney disease Sister Hypertension Brother Polycystic kidney disease Brother Family Status - Relation Status Age at Mother Father Sister Brother Level of Service:09658 [place] OFFICE/OUTPATIENT ESTABLISHED MOD MDM 30-39 MIN Reason for Visit and Comments: Kidney Transplant [[id number]] - No major concerns today Normal [facility] HEPATIC FUNCTION PANELon Albumin [Mass/Vol] 4.6 g/dL Normal 3.5-5.7 [facility] Comment on above: Performed By: #### L [id number] #### [facility] ([facility]) [address] [place] [id number] ALP [Catalytic activity/Vol] 63 U/L Normal 34-104 [facility] Comment on above: Performed By: #### L [id number] #### [facility] ([facility]) [address] [place] [address] ALT [Catalytic activity/Vol] 25 U/L Normal 7-52 [facility] Comment on above: Performed By: #### L [id number] #### [facility] ([facility]) [address] [place] [address] AST [Catalytic activity/Vol] 19 U/L Normal 13-39 [facility] Comment on above: Performed By: #### L [id number] #### [facility] [address] [place] [id number] Bilirubin [Mass/Vol] 0.4 mg/dL Normal 0.3-1.0 [facility] Comment on above: Performed By: #### L [id number] #### [facility] ([facility]) [address] [place] [address] Magnesium [Mass/Vol] 0.1 mg/dL Normal 0-0.2 [facility] Comment on above: Performed By: #### L [id number] #### [facility] ([facility]) [address] [place] [address] Protein [Mass/Vol] 7.2 g/dL Normal 6.0-8.3 [facility] Comment on above: Performed By: #### L [id number] #### [facility] ([facility]) [address] [place] [id number] Labon 12-25-2022 Lab [id number] Antonio Puri i 1975 F Date Provider Department Center 12/25/[address]PD LAB RESOURCE [facility] O[facility] Family History Problem Relation Age of Onset Fibromyalgia Mother Heart disease Father Hypertension Sister Polycystic kidney disease Sister Hypertension Brother Polycystic kidney disease Brother Family Status - Relation Status Age at Mother Father Sister Brother Normal [facility] MAGNESIUMon 12-25-2022 Magnesium [Mass/Vol] 1.7 mg/dL Low 1.9-2.7 [facility] Comment on above: Performed By: #### L [id number] #### [facility] ([facility]) [address] [place] [address] MANUAL DIFFERENTIALon 2022 BASOPHILS (10*3/UL) IN BLOOD BY CALCULATION 0.04 10*3/uL Normal 0.00-0.20 [facility] Comment on above: Performed By: #### L [id number] #### [facility] [address] [place] [address] BASOPHILS/100 LEUKOCYTES IN BLOOD BY AUTOMATED COUNT 1.0 % Normal 0.0-1.0 [facility] Comment on above: Result Comment: Libby ected result: Previously reported as 0.9 % (reference range: 0.0-1.0 %) on 12/25/2022 at 0831 EDT. Performed By: #### L [id number] #### [facility] ([facility]) [address] [place] [address] EOSINOPHILS (10*3/UL) IN BLOOD BY CALCULATION 0.09 10*3/uL Normal 0.00-0.50 [facility] Comment on above: Result Comment: Libby ected result: Previously reported as 0.15 10*3/uL (reference range: 0.00-0.50 10*3/uL) on 12/25/2022 at 0831 EDT. Performed By: #### L [id number] #### [facility] ([facility]) [address] [place] [address] EOSINOPHILS/100 LEUKOCYTES IN BLOOD BY AUTOMATED COUNT 2.0 % Normal 0.0-6.0 [facility] Comment on above: Result Comment: Libby ected result: Previously reported as 3.5 % (reference range: 0.0-6.0 %) on 12/25/2022 at 0831 EDT. Performed By: #### L [id number] #### [facility] ([facility]) [address] [place] [address] LYMPHOCYTES (10*3/UL) IN BLOOD BY CALCULATION 0.65 10*3/uL Low 1.20-4.00 [facility] Comment on above: Result Comment: Libby ected result: Previously reported as 0.69 10*3/uL (reference range: 1.20-4.00 10*3/uL) on 12/25/2022 at 0831 EDT. Performed By: #### L [id number] #### [facility] ([facility]) [address] [place] [address] LYMPHOCYTES/100 LEUKOCYTES IN BLOOD BY AUTOMATED COUNT 15.0 % Low 20.0-45.0 [facility] Comment on above: Result Comment: Libby ected result: Previously reported as 16.0 % (reference range: 20.0-45.0 %) on 12/25/2022 at 0831 EDT. Performed By: #### L [id number] #### [facility] ([facility]) [address] [place] [address] METAMYELOCYTES (10*3/UL) IN BLOOD BY CALCULATION 0.04 10*3/uL High 0.00-0.00 [facility] Comment on above: Performed By: #### L [id number] #### [facility] ([facility]) [address] [place] [address] METAMYELOCYTES/100 LEUKOCYTES IN BLOOD CELLAVISION 1.0 % High 0.0-0.0 [facility] Comment on above: Performed By: #### L [id number] #### [facility] ([facility]) [address] [place] [address] MONOCYTES (10*3/UL) IN BLOOD BY CALCUATION 0.04 10*3/uL Low 0.10-1.00 [facility] Comment on above: Result Comment: Libby ected result: Previously reported as 0.12 10*3/uL (reference range: 0.10-1.00 10*3/uL) on 12/25/2022 at 0831 EDT. Performed By: #### L [id number] #### [facility] ([facility]) [address] [address] MONOCYTES/100 LEUKOCYTES IN BLOOD BY AUTOMATED COUNT 1.0 % Low 5.0-12.0 [facility] Comment on above: Result Comment: Libby ected result: Previously reported as 2.8 % (reference range: 5.0-12.0 %) on 12/25/2022 at 0831 EDT. Performed By: #### L [id number] #### [facility] ([facility]) [address] [place] [address] NEUTROPHILS (10*3/UL) IN BLOOD BY CALCULATION 3.4 10*3/uL Normal 1.6-7.6 [facility] Comment on above: Result Comment: Libby ected result: Previously reported as 2.9 10*3/uL (reference range: 1.6-7.6 10*3/uL) on 12/25/2022 at 0831 EDT. Performed By: #### L [id number] #### [facility] ([facility]) [address] [place] [address] NEUTROPHILS/100 LEUKOCYTES IN BLOOD BY AUTOMATED COUNT 80.0 % High 40.0-72.0 [facility] Comment on above: Result Comment: Libby ected result: Previously reported as 67.7 % (reference range: 40.0-72.0 %) on 12/25/2022 at 0831 EDT. Performed By: #### L [id number] #### [facility] ([facility]) [address] [place] [address] PLASMA CELLS/100 LEUKOCYTES IN BLOOD 0 % Normal 0-0 [facility] Comment on above: Performed By: #### L [id number] #### [facility] ([facility]) [address] [place] [address] PLATELETS GIANT PRESENCE IN BLOOD BY LIGHT MICROSCOPY Present Normal [facility] Comment on above: Performed By: #### L [id number] #### [facility] ([facility]) [address] [place] [address] VARIANT LYMPHOCYTES (10*3/UL) IN BLOOD BY CALCULATION 0.00 10*3/uL Normal 0.00-0.00 [facility] Comment on above: Performed By: #### L [id number] #### [facility] ([facility]) [address] [place] [address] VARIANT LYMPHOCYTES/100 LEUKOCYTES IN BLOOD CELLAVISION 0.0 % Normal 0.0-0.0 [facility] Comment on above: Performed By: #### L [id number] #### [facility] ([facility]) [address] [place] [address] [facility] PROSPERAon 12-25-2022 PROSPERA RESULT Results to be mailed directly to physician's office by reference lab. [facility] Comment on above: Performed By: #### L [id number] #### [facility] , PHOSPHORUSon 12-25-2022 Magnesium [Mass/Vol] 2.6 mg/dL Normal 2.5-5.0 [facility] Comment on above: Performed By: #### L [id number] #### [facility] ([facility] [address] [place] [address] SINGLE ANTIGEN CLASS Ion AB SCREEN COMMENTS No Class I donor spe cific antibody identified [facility] Comment on above: Performed By: #### L [id number] #### [facility] TISSUE TYPING (HISTOTRAC) [address] [place] [address] [facility] CLASS I TESTED DATE Normal [facility] Comment on above: Performed By: #### L [id number] #### [facility] TISSUE TYPING (HISTOTRAC) [address] [place] [address] [facility] SIGNED BY Signed by Nelson escamilla CHT[facility] [place](ASCP), Telephone Information Supervisor Transplant Immunology [facility] Comment on above: Result Comment: Clas s I Antigen Microbeads Performed By: #### L [id number] #### [facility] TISSUE TYPING (HISTOTRAC) [address] [place] [address] [facility] Performed By: #### L [id number] #### [facility] ([facility] [address] [place] [address] SINGLE ANTIGEN CLASS 1 TEST METHOD Class I Single Antigen Normal [facility] Comment on above: Performed By: #### L [id number] #### [facility] TISSUE TYPING (HISTOTRAC) [address] [place] [address] [facility] SINGLE ANTIGEN CLASS IIon AB SCREEN COMMENTS No Class II donor specific antibody identified Normal [facility] Comment on above: Performed By: #### L [id number] #### [facility] ([facility] [address] [place] [address] CLASS II TESTED DATE [facility] Comment on above: Performed By: #### L [id number] #### [facility] ([facility]) [address] [place] [address] SINGLE ANTIGEN CLASS 2 TEST METHOD Class II Single Antigen Normal [facility] Comment on above: Result Comment: Clas s II Antigen Microbeads Performed By: #### L [id number] #### [facility] ([facility]) [address] [place] [address] TACROLIMUS LEVELon Tacrolimus (Bld) [Mass/Vol] 11.4 ng/mL Normal 5.0-20.0 [facility] Comment on above: Result Comment: The MARCELO BACK ORDER CLERK Tacrolimus assay is a delayed one-step immunoassay for the quantitative determination of tacrolimus in human whole blood using the chemiluminescent microparticle immunoassay (CMIA) technology with flexible assay protocols, referred to as Chemiflex. Performed By: #### L [id number] #### [facility] ([facility]) [address] [place] [address] URIC ACIDon 12-25-2022 Magnesium [Mass/Vol] 2.9 mg/dL Normal 2.3-6.6 [facility] Comment on above: Performed By: #### L [id number] #### [facility] ([facility]) [address] [place] [address] PTH INTACTon 07-30-2022 PTH, Intact 107 pg/mL Critically high 15-65 [facility] Comment on above: Performed By: #### M G, URIC, RENAL #### [facility] [address] [address] [address] Hari Palmer FERRITINon 07-29-2022 Ferritin [Mass/Vol] 194.0 ng/mL Critically high 6.2-137.0 [facility] Comment on above: Performed By: #### M G, URIC, RENAL #### [facility] [address] [address] [address] Hari Palmer HEMOGRAM AND PLATELon 2021 Hematocrit (Bld) [Volume fraction] 32.8 % Critically low 36.0-48.0 [facility] Comment on above: Performed By: #### M G, URIC, RENAL #### [facility] [address] [place] [address] Dr. Hari Palmer Hemoglobin (Bld) [Mass/Vol] 10.8 g/dL Critically low 12.0-16.0 [facility] Comment on above: Performed By: #### M G, URIC, RENAL #### [facility] [address] [place] [address] Dr. Hari Palmer MCH (RBC) [Entitic mass] 31.7 pg Normal 26.7-34.0 [facility] Comment on above: Performed By: #### M G, URIC, RENAL #### [facility] [address] [place] [address] Dr. Hari Palmer MCHC (RBC) [Mass/Vol] 32.9 g/dL Normal 29.9-35.2 [facility] Comment on above: Performed By: #### M G, URIC, RENAL #### [facility] [address] [place] [address] Dr. Hari Palmer MCV (RBC) [Entitic vol] 96.2 fL Normal 81.0-99.0 [facility] Comment on above: Performed By: #### M G, URIC, RENAL #### [facility] [address] [place] [address] Dr. Hari Palmer PLT 297 103/ul Normal 150-450 [facility] Comment on above: Performed By: #### M G, URIC, RENAL #### [facility] [address] [place] [address] Dr. Hari Palmer RBC 3.41 106/ul Critically low 4.20-5.40 [facility] Comment on above: Performed By: #### M G, URIC, RENAL #### [facility] [address] [place] [address] Dr. Hari Palmer WBC 7.1 103/ul Normal 4.0-11.0 [facility] Comment on above: Performed By: #### M G, URIC, RENAL #### [facility] [address] [place] [address] Dr. Hari Palmer IRON AND TIBCon 07-29-2022 % SATURATION 19.0 % Normal [facility] Comment on above: Performed By: #### M Edy, URIC, RENAL #### [facility] [address] [place] [address] Dr. Hari Palmer Iron [Mass/Vol] 48.0 ug/dL Critically low 50.0-170.0 [facility] Comment on above: Performed By: #### M Edy, URIC, RENAL #### [facility] [address] [place] [address] Dr. Hari Palmer TIBC DIRECT 252.0 ug/dL Normal 250.0-450.0 [facility] Comment on above: Performed By: #### M Edy, URIC, RENAL #### [facility] [address] [place] [address] Dr. Hari Palmer MAGNESIUMon 07-29-2022 Magnesium [Mass/Vol] 2.0 mg/dL Normal 1.8-2.4 [facility] Comment on above: Performed By: #### M Edy, URIC, RENAL #### [facility] [address] [place] [address] Dr. Hari Palmer RENAL FUNCTION PANELon 07-29 Albumin [Mass/Vol] 3.6 g/dL Normal 3.4-5.0 [facility] Comment on above: Performed By: #### M Edy, URIC, RENAL #### [facility] [address] [place] [address] Dr. Hari Palmer Calcium [Mass/Vol] 8.7 mg/dL Normal 8.5-10.1 [facility] Comment on above: Performed By: #### M G, URIC, RENAL #### [facility] [address] [place] [address] Dr. Hari Palmer Chloride [Moles/Vol] 104 mmol/L Normal 98-107 [facility] Comment on above: Performed By: #### M G, URIC, RENAL #### [facility] [address] [place] [address] Dr. Hari Palmer CO2 [Moles/Vol] 21.8 mmol/L Normal 21.0-32.0 [facility] Comment on above: Performed By: #### M G, URIC, RENAL #### [facility] [address] [place] [address] Dr. Hari Palmer Creatinine [Mass/Vol] 3.83 mg/dL Critically high 0.55-1.02 [facility] Comment on above: Performed By: #### M G, URIC, RENAL #### [facility] [address] [place] [address] Dr. Hari Palmer EGFR-AF BELARUSIAN 15 mL/min/1.73m2 Critically low >=60 [facility] Comment on above: Performed By: #### M G, URIC, RENAL #### [facility] [address] [place] [address] Dr. Hari Palmer EGFR-NON AF BELARUSIAN 13 mL/min/1.73m2 Critically low >=60 [facility] Comment on above: Performed By: #### M G, URIC, RENAL #### [facility] [address] [place] [address] Dr. Hari Palmer Glucose [Mass/Vol] 108 mg/dL Critically high 74-106 [facility] Comment on above: Performed By: #### M G, URIC, RENAL #### [facility] [address] [place] [address] Dr. Hari Palmer Phosphate [Mass/Vol] 5.4 mg/dL Critically high 2.6-4.7 [facility] Comment on above: Performed By: #### M G, URIC, RENAL #### [facility] [address] [place] [address] Dr. Hari Palmer Potassium [Moles/Vol] 3.9 mmol/L Normal 3.5-5.1 [facility] Comment on above: Performed By: #### M G, URIC, RENAL #### [facility] [address] [place] [address] Dr. Hari Palmer Sodium [Moles/Vol] 137 mmol/L Normal 136-145 [facility] Comment on above: Performed By: #### M G, URIC, RENAL #### [facility] [address] [place] [address] Dr. Hari Palmer Urea nitrogen [Mass/Vol] 47.0 mg/dL Critically high 7.0-18.0 [facility] Comment on above: Performed By: #### M G, URIC, RENAL #### [facility] [address] [address] [address] Hari Palmer URIC ACID SERUMon 07-29-2022 Urate [Mass/Vol] 6.3 mg/dL Critically high 2.6-6.0 [facility] Comment on above: Performed By: #### M G, URIC, RENAL #### [facility] [address] [address] [address] Hari Palmer URINE T PROTEIN CREAT RATIOo n 07-29-2022 Protein (U) [Mass/Vol] 29.7 mg/dL Critically high <=12.0 [facility] Comment on above: Performed By: #### M G, URIC, RENAL #### [facility] [address] [place] [address] Dr. Hari Palmer UR PROT CREAT RAT 0.56 Normal [facility] Comment on above: Performed By: #### M G, URIC, RENAL #### [facility] [address] [address] [address] Hari Palmer URINE CREAT 53.35 mg/dL Normal 20.00-300.00 [facility] Comment on above: Performed By: #### M G, URIC, RENAL #### [facility] [address] [place] [address] Dr. Hari Palmer VITAMIN D 25 OHon 07-29-2022 VIT D 25-OH 38.8 ng/mL Normal [facility] Comment on above: Performed By: #### M G, URIC, RENAL #### [facility] [address] [place] [address] Dr. Hari Palmer VIT D RANGES SEE BELOW Normal [facility] Comment on above: Result Comment: <20 ng/mL Vit D deficient 20 - <30 ng/mL Vit D insufficient 30 - 100 ng/mL Vit D sufficient >100 ng/mL Potential Toxicity Performed By: #### M G, URIC, RENAL #### [facility] [address] [place] [address] Dr. Hari Palmer Albumin [Mass/volume] in Ser um or PlasmaOrdered By: Stalney Forman on 06-20-2022 Albumin [Mass/Vol] 3.9 g/dL 3.2-5.5 [facility] Basophils Auto (Bld) [#/Vol] Ordered By: Stanley Forman on 06-20-2022 Basophils (Bld) [#/Vol] 0.1 10*3/uL 0.0-0.2 [facility] Basophils/100 WBC Auto (Bld) Ordered By: Stanley Forman on 06-20-2022 Basophils/100 WBC (Bld) 0.7 % . [facility] Blood hemoglobin measurement (mass/volume)Ordered By: Stanley Forman on 06-20-2022 Hemoglobin (Bld) [Mass/Vol] 10.8 g/dL 11.8-15.4 [facility] Blood leukocytes automated c ount (number/volume)Ordered By: Stanley Forman on 06-20-2022 WBC (Bld) [#/Vol] 11.8 10*3/uL 4.5-11.0 [facility] C reactive protein [Mass/vol ume] in Serum or PlasmaOrdered By: Stanley Forman on 06-20-2022 CRP [Mass/Vol] 5.2 mg/dL 0.0-1.0 [facility] Creatinine and Glomerular fi ltration rate.predicted panel (S/P/Bld)Ordered By: Stanley Forman on 06-20-2022 Creatinine [Mass/Vol] 4.49 mg/dL 0.44-1.03 [facility] Eosinophils Auto (Bld) [#/Vo l]Ordered By: Stanley Forman on 06-20-2022 Eosinophils (Bld) [#/Vol] 0.4 10*3/uL 0.0-0.45 [facility] Eosinophils/100 WBC Auto (Bl d)Ordered By: Stanley Forman on 06-20-2022 Eosinophils/100 WBC (Bld) 3.2 % . [facility] Erythrocyte distribution wid th Auto (RBC) [Ratio]Ordered By: Stanley Forman on 06-20-2022 Erythrocyte distribution width (RBC) [Ratio] 14.0 % 11.9-15.3 [facility] Erythrocyte sedimentation ra te by Photometric methodOrdered By: Stanley Forman on 06-20-2022 ESR Photometric method (Bld) [Velocity] 67 mm/hr 0-19 [facility] Estimated glomerular filtrat ion rate (GFR) non- AmericanOrdered By: Stanley Forman on 06-20-2022 GFR/1.73 sq M.predicted among non-blacks MDRD (S/P/Bld) [Vol rate/Area] 11 mL/Min [facility] Globulin Calc (S) [Mass/Vol] Ordered By: Stanley Forman on 06-20-2022 Globulin (S) [Mass/Vol] 3.5 g/dL [facility] Hematocrit Auto (Bld) [Volum e fraction]Ordered By: Stanley Forman on 06-20-2022 Hematocrit (Bld) [Volume fraction] 33.1 % 34.0-46.4 [facility] - Hematology and Cell countsOrdered By: Stanley Forman on 06-20-2022 Nucleated RBC/100 WBC (Bld) [Ratio] 0.0 % 0-0.5 [facility] Lymphocytes Auto (Bld) [#/Vo l]Ordered By: Stanley Forman on 06-20-2022 Lymphocytes (Bld) [#/Vol] 1.5 10*3/uL 1.00-4.8 [facility] Lymphocytes/100 WBC Auto (Bl d)Ordered By: Stanley Forman on 06-20-2022 Lymphocytes/100 WBC (Bld) 12.3 % . [facility] MCH Auto (RBC) [Entitic mass ]Ordered By: Stanley Forman on 06-20-2022 MCH (RBC) [Entitic mass] 31.1 pg 24.7-34.3 [facility] MCHC Auto (RBC) [Mass/Vol]Or dered By: Stanley Forman on 06-20-2022 MCHC (RBC) [Mass/Vol] 32.5 g/dL 32.0-35.0 [facility] MCV Auto (RBC) [Entitic vol] Ordered By: Stanley Forman on 06-20-2022 MCV (RBC) [Entitic vol] 95.6 fL 80-100 [facility] Monocytes Auto (Bld) [#/Vol] Ordered By: Stanley Forman on 06-20-2022 Monocytes (Bld) [#/Vol] 0.5 10*3/uL 0.0-0.8 [facility] Monocytes/100 WBC Auto (Bld) Ordered By: Stanley Forman on 06-20-2022 Monocytes/100 WBC (Bld) 4.1 % . [facility] Neutrophils Auto (Bld) [#/Vo l]Ordered By: Stanley Forman on 06-20-2022 Neutrophils (Bld) [#/Vol] 9.4 10*3/uL 1.8-7.7 [facility] Neutrophils/100 WBC Auto (Bl d)Ordered By: Stanley Forman on 06-20-2022 Neutrophils/100 WBC (Bld) 79.7 % . [facility] No Panel InformationOrdered By: Stanley Forman on 06-20-2022 Estimated GFR () 13 mL/Min [facility] Comment on above: GFR estimated refere nce range: According to KDOQI guidelines, <60 ml/min/1.73m2 is sufficient to diagnose a patient with chronic kidney disease. Pharmacy Creatinine Clearance (Chem 16.48 [facility] Platelet mean volume Auto (B ld) [Entitic vol]Ordered By: Stanley Forman on 06-20-2022 Platelet mean volume (Bld) [Entitic vol] 7.0 fL 6.3-10.7 [facility] Platelets Auto (Bld) [#/Vol] Ordered By: Stanley Forman on 06-20-2022 Platelets (Bld) [#/Vol] 287 10*3/uL 150-450 [facility] Protein [Mass/volume] in Ser um or PlasmaOrdered By: Stanley Forman on 06-20-2022 Protein [Mass/Vol] 7.4 g/dL 6.1-7.9 [facility] RBC Auto (Bld) [#/Vol]Ordere d By: Stanley Forman on 06-20-2022 RBC (Bld) [#/Vol] 3.46 10*6/uL 3.60-5.00 [facility] Serum or plasma alanine cesar otransferase measurement without P-5'-P (enzymatic activiOrdered By: Stnaley Forman on 06-20-2022 ALT No additional P-5'-P [Catalytic activity/Vol] 11 U/L 10-60 [facility] Serum or plasma albumin/glob ulin mass ratioOrdered By: Stanley Forman on 06-20-2022 Albumin/Globulin [Mass ratio] 1.1 {ratio} [facility] Serum or plasma alkaline gina sphatase measurement (enzymatic activity/volume)Ordered By: Stanley Forman on 06-20-2022 ALP [Catalytic activity/Vol] 82 U/L 32-92 [facility] Serum or plasma anion gap de terminationOrdered By: Stanley Forman on 06-20-2022 Anion gap [Moles/Vol] 16.2 mmol/L 6.0-15.0 [facility] Serum or plasma aspartate am inotransferase measurement (enzymatic activity/volume)Ordered By: Stanley Forman on 06-20-2022 AST [Catalytic activity/Vol] 15 U/L 10-42 [facility] Serum or plasma calcium ge urement (mass/volume)Ordered By: Stanley Forman on 06-20-2022 Calcium [Mass/Vol] 9.3 mg/dL 8.2-10.2 [facility] Serum or plasma chloride lee surement (moles/volume)Ordered By: Stanley Forman on 06-20-2022 Chloride [Moles/Vol] 103 mmol/L 95-114 [facility] Serum or plasma glucose ge urement (mass/volume)Ordered By: Stanley Forman on 06-20-2022 Glucose [Mass/Vol] 75 mg/dL 70-100 [facility] Comment on above: ADA recommended refe rence rangeRandom Glucose Reference Range is dependent on time and content of last meal. Glucose of more than 200 mg/dL in a nonstressed, ambulatory subject supports the diagnosis of Diabetes Mellitus. Serum or plasma potassium me asurement (moles/volume)Ordered By: Stanley Forman on 06-20-2022 Potassium [Moles/Vol] 4.3 mmol/L 3.5-5.1 [facility] Serum or plasma sodium measu rement (moles/volume)Ordered By: Stanley Forman on 06-20-2022 Sodium [Moles/Vol] 135 mmol/L 136-146 [facility] Serum or plasma total biliru bin measurement (mass/volume)Ordered By: Stanley Forman on 06-20-2022 Bilirubin [Mass/Vol] 0.3 mg/dL 0.3-1.2 [facility] Serum or plasma total carbon dioxide measurement (moles/volume)Ordered By: Stanleymario Forman on 06-20-2022 CO2 [Moles/Vol] 20.1 mmol/L 22.0-30.0 [facility] Serum or plasma urea nitroge n measurement (mass/volume)Ordered By: Stanleymario Forman on 06-20-2022 Urea nitrogen [Mass/Vol] 42 mg/dL 06-28 [facility] COVID-19 Positive/NegativeOr dered By: Jesus Parham on 06-14-2022 SARS-CoV-2 (COVID-19) N gene AMBERLY+probe Ql (Resp) Negative Negative [facility] Comment on above: Testing for SARS-CoV -2 by RT-PCR This test was developed and its performance characteristics determined by [employer] ([employer]) and validated at the [facility]. This test has not been FDA cleared [...] developed and its performance characteristics determined by [employer] ([employer]) and validated at the [facility]. This test has not been FDA cleared [...] (CA) 125 10.8 U/mL Normal 0.0-38.1 [facility] Comment on above: Result Comment: [employer] Electrochemiluminescence Immunoassay (ECLIA) . Values obtained with different assay methods or kits cannot be used interchangeably. Results cannot be interpreted as absolute evidence of the presence or absence of malignant disease. Performed By: #### M G, URIC, RENAL #### [facility] [address] [address] [address] Hari Palmer CEAon 06-08-2022 CEA 0.9 ng/mL Normal 0.0-4.7 [facility] Comment on above: Result Comment: Nons mokers <3.9 Smokers <5.6 . [employer] Electrochemiluminescence Immunoassay (ECLIA) . Values obtained with different assay methods or kits cannot be used interchangeably. Results cannot be interpreted as absolute evidence of the presence or absence of malignant disease. Performed By: #### C EA. #### [facility] [address] [place], [place] [address] Dr. Hari Palmer Basophils Auto (Bld) [#/Vol] Ordered By: Jesus Parham on 06-05-2022 Basophils (Bld) [#/Vol] 0.0 10*3/uL 0.0-0.2 [facility] Basophils/100 WBC Auto (Bld) Ordered By: Jesus Parham on 06-05-2022 Basophils/100 WBC (Bld) 0.3 % . [facility] Blood hemoglobin measurement (mass/volume)Ordered By: Jesus Parham on 06-05-2022 Hemoglobin (Bld) [Mass/Vol] 12.0 g/dL 11.8-15.4 [facility] Blood leukocytes automated c ount (number/volume)Ordered By: Jesus Parham on 06-05-2022 WBC (Bld) [#/Vol] 8.5 10*3/uL 4.5-11.0 [facility] Creatinine and Glomerular fi ltration rate.predicted panel (S/P/Bld)Ordered By: Jesus Parham on 06-05-2022 Creatinine [Mass/Vol] 3.52 mg/dL 0.44-1.03 [facility] Eosinophils Auto (Bld) [#/Vo l]Ordered By: Jesus Parham on 06-05-2022 Eosinophils (Bld) [#/Vol] 0.2 10*3/uL 0.0-0.45 [facility] [facility] E[facility]/100 WBC Auto (Bl d)Ordered By: Jesus Parham on 06-05-2022 Eosinophils/100 WBC (Bld) 2.7 % . [facility] Erythrocyte distribution wid th Auto (RBC) [Ratio]Ordered By: Jesus Parham on 06-05-2022 Erythrocyte distribution width (RBC) [Ratio] 14.2 % 11.9-15.3 [facility] Estimated glomerular filtrat ion rate (GFR) non- AmericanOrdered By: Jesus Parham on 06-05-2022 GFR/1.73 sq M.predicted among non-blacks MDRD (S/P/Bld) [Vol rate/Area] 14 mL/Min [facility] Hematocrit Auto (Bld) [Volum e fraction]Ordered By: Jesus Parham on 06-05-2022 Hematocrit (Bld) [Volume fraction] 35.8 % 34.0-46.4 [facility] Laboratory - Hematology and Cell countsOrdered By: Jesus Parham on 06-05-2022 Nucleated RBC/100 WBC (Bld) [Ratio] 0.1 % 0-0.5 [facility] Lymphocytes Auto (Bld) [#/Vo l]Ordered By: Jesus Parham on 06-05-2022 Lymphocytes (Bld) [#/Vol] 1.6 10*3/uL 1.00-4.8 [facility] Lymphocytes/100 WBC Auto (Bl d)Ordered By: Jesus Parham on 06-05-2022 Lymphocytes/100 WBC (Bld) 19.3 % . [facility] MCH Auto (RBC) [Entitic mass ]Ordered By: Jesus Parham on 06-05-2022 MCH (RBC) [Entitic mass] 31.5 pg 24.7-34.3 [facility] MCHC Auto (RBC) [Mass/Vol]Or dered By: Jesus Parham on 06-05-2022 MCHC (RBC) [Mass/Vol] 33.3 g/dL 32.0-35.0 [facility] MCV Auto (RBC) [Entitic vol] Ordered By: Jesus Parham on 06-05-2022 MCV (RBC) [Entitic vol] 94.4 fL 80-100 [facility] Monocytes Auto (Bld) [#/Vol] Ordered By: Jesus Parham on 06-05-2022 Monocytes (Bld) [#/Vol] 0.3 10*3/uL 0.0-0.8 [facility] Monocytes/100 WBC Auto (Bld) Ordered By: Jesus Parham on 06-05-2022 Monocytes/100 WBC (Bld) 3.9 % . [facility] Neutrophils Auto (Bld) [#/Vo l]Ordered By: Jesus Parham on 06-05-2022 Neutrophils (Bld) [#/Vol] 6.2 10*3/uL 1.8-7.7 [facility] Neutrophils/100 WBC Auto (Bl d)Ordered By: Jesus Parham on 06-05-2022 Neutrophils/100 WBC (Bld) 73.8 % . [facility] No Panel InformationOrdered By: Jesus Parham on 06-05-2022 Estimated GFR () 17 mL/Min [facility] Comment on above: GFR estimated refere nce range: According to KDOQI guidelines, <60 ml/min/1.73m2 is sufficient to diagnose a patient with chronic kidney disease. Pharmacy Creatinine Clearance (Chem N/A [facility] Platelet mean volume Auto (B ld) [Entitic vol]Ordered By: Jesus Parham on 06-05-2022 Platelet mean volume (Bld) [Entitic vol] 7.3 fL 6.3-10.7 [facility] Platelets Auto (Bld) [#/Vol] Ordered By: Jesus Parham on 06-05-2022 Platelets (Bld) [#/Vol] 312 10*3/uL 150-450 [facility] RBC Auto (Bld) [#/Vol]Ordere d By: Jesus Parham on 06-05-2022 RBC (Bld) [#/Vol] 3.80 10*6/uL 3.60-5.00 [facility] Serum or plasma anion gap de terminationOrdered By: Jesus Parham on 06-05-2022 Anion gap [Moles/Vol] 15.1 mmol/L 6.0-15.0 [facility] Serum or plasma calcium ge urement (mass/volume)Ordered By: Jesus Parham on 06-05-2022 Calcium [Mass/Vol] 9.5 mg/dL 8.2-10.2 [facility] Serum or plasma chloride lee surement (moles/volume)Ordered By: Jesus Parham on 06-05-2022 Chloride [Moles/Vol] 106 mmol/L 95-114 [facility] Serum or plasma glucose ge urement (mass/volume)Ordered By: Jesus Parham on 06-05-2022 Glucose [Mass/Vol] 91 mg/dL 70-100 [facility] Comment on above: ADA recommended refe [...] on 06-05-2022 Potassium [Moles/Vol] 4.4 mmol/L 3.5-5.1 [facility] Serum or plasma sodium measu rement (moles/volume)Ordered By: Jesus Parham on 06-05-2022 Sodium [Moles/Vol] 137 mmol/L 136-146 [facility] Serum or plasma total carbon dioxide measurement (moles/volume)Ordered By: Jesus Parham on 06-05-2022 CO2 [Moles/Vol] 20.3 mmol/L 22.0-30.0 [facility] Serum or plasma urea nitroge n measurement (mass/volume)Ordered By: Jesus Parham on 06-05-2022 Urea nitrogen [Mass/Vol] 38 mg/dL 9- [facility] PTH INTACTon 04-29-2022 PTH, Intact 191 pg/mL Critically high 15-65 [facility] Comment on above: Performed By: #### M JUDIE Snow, RENAL #### [facility] [address] [address] [address] Hari Palmer VIT D 25-OH LABCORPon 2021 Vitamin D, 25-Hydroxy 33.6 ng/mL Normal 30.0-100.0 [facility] Comment on above: Result Comment: Ning min D deficiency has been defined by the [place] of [employer] and an Endocrine Society practice guideline as a level of serum 25-OH vitamin D less than 20 ng/mL (1,2). The Endocrine Society went on to further define vitamin D insufficiency as a level between 21 and 29 ng/mL (2). 1. IOM ([place] of [employer]). 2010. Dietary reference intakes for calcium and D. [place]: The National Academies Press. 2. Chantel MF, Landen [place], Eliseo STEPHENS, et al. Evaluation, treatment, and prevention of vitamin D deficiency: an Endocrine Society clinical practice guideline. JCEM. 2010; 96(7):1911-30. Performed By: #### M JUDIE Snow, RENAL #### [facility] [address] [address] [address] Hari Palmer ABO AND RH TYPEon 04-27-2022 ABO and Rh group Nom (Bld) ABO Rh Typing O Rh Positive Normal [facility] Comment on above: Performed By: #### M JUDIE Snow, RENAL #### [facility] [address] [place] [address] Dr. Hari Palmer FERRITINon 04-27-2022 Ferritin [Mass/Vol] 273.0 ng/mL Critically high 6.2-137.0 [facility] Comment on above: Performed By: #### M G, URIC, RENAL #### [facility] [address] [place] [address] Dr. Hari Palmer HEMOGRAM AND PLATELon 2021 Hematocrit (Bld) [Volume fraction] 33.9 % Critically low 36.0-48.0 [facility] Comment on above: Performed By: #### M G, URIC, RENAL #### [facility] [address] [place] [address] Dr. Hari Palmer Hemoglobin (Bld) [Mass/Vol] 11.4 g/dL Critically low 12.0-16.0 [facility] Comment on above: Performed By: #### M G, URIC, RENAL #### [facility] [address] [place] [address] Dr. Hari Palmer MCH (RBC) [Entitic mass] 31.7 pg Normal 26.7-34.0 [facility] Comment on above: Performed By: #### M G, URIC, RENAL #### [facility] [address] [place] [address] Dr. Hari Palmer MCHC (RBC) [Mass/Vol] 33.6 g/dL Normal 29.9-35.2 [facility] Comment on above: Performed By: #### M G, URIC, RENAL #### [facility] [address] [place] [address] Dr. Hari Palmer MCV (RBC) [Entitic vol] 94.2 fL Normal 81.0-99.0 [facility] Comment on above: Performed By: #### M G, URIC, RENAL #### [facility] [address] [place] [address] Dr. Hari Palmer PLT 333 103/ul Normal 150-450 [facility] Comment on above: Performed By: #### M G, URIC, RENAL #### [facility] [address] [place] [address] Dr. Hari Palmer RBC 3.60 106/ul Critically low 4.20-5.40 [facility] Comment on above: Performed By: #### M G, URIC, RENAL #### [facility] [address] [place] [address] Dr. Hari Palmer WBC 9.7 103/ul Normal 4.0-11.0 [facility] Comment on above: Performed By: #### M G, URIC, RENAL #### [facility] [address] [place] [address] Dr. Hari Palmer IRON AND TIBCon 04-27-2022 % SATURATION 20.1 % Normal [facility] Comment on above: Performed By: #### M G, URIC, RENAL #### [facility] [address] [place] [address] Dr. Hari Palmer Iron [Mass/Vol] 57.0 ug/dL Normal 50.0-170.0 [facility] Comment on above: Performed By: #### M G, URIC, RENAL #### [facility] [address] [place] [address] Dr. Hari Palmer TIBC DIRECT 283.0 ug/dL Normal 250.0-450.0 [facility] Comment on above: Performed By: #### M G, URIC, RENAL #### [facility] [address] [place] [address] Dr. Hari Palmer MAGNESIUMon 04-27-2022 Magnesium [Mass/Vol] 2.1 mg/dL Normal 1.8-2.4 [facility] Comment on above: Performed By: #### R ENAL, URIC, MG #### [facility] [address] [place] [address] Dr. Hari Palmer RENAL FUNCTION PANELon 04-27 Albumin [Mass/Vol] 3.6 g/dL Normal 3.4-5.0 [facility] Comment on above: Performed By: #### R ENAL, URIC, MG #### [facility] [address] [place] [address] Dr. Hari Palmer Calcium [Mass/Vol] 9.0 mg/dL Normal 8.5-10.1 [facility] Comment on above: Performed By: #### R ENAL, URIC, MG #### [facility] [address] [address] [address] Hari Palmer Chloride [Moles/Vol] 104 mmol/L Normal 98-107 [facility] Comment on above: Performed By: #### R ENAL, URIC, MG #### [facility] [address] [address] [address] Hari Palmer CO2 [Moles/Vol] 23.0 mmol/L Normal 21.0-32.0 [facility] Comment on above: Performed By: #### R ENAL, URIC, MG #### [facility] [address] [place] [address] Dr. Hari Palmer Creatinine [Mass/Vol] 3.38 mg/dL Critically high 0.55-1.02 [facility] Comment on above: Performed By: #### R ENAL, URIC, MG #### [facility] [address] [place] [address] Dr. Hair Palmer EGFR-AF BELARUSIAN 18 mL/min/1.73m2 Critically low >=60 [facility] Comment on above: Performed By: #### R ENAL, URIC, MG #### [facility] [address] [place] [address] Dr. Hari Palmer EGFR-NON AF BELARUSIAN 15 mL/min/1.73m2 Critically low >=60 [facility] Comment on above: Performed By: #### R ENAL, URIC, MG #### [facility] [address] [place] [address] Dr. Hari Palmer Glucose [Mass/Vol] 113 mg/dL Critically high 74-106 [facility] Comment on above: Performed By: #### R ENAL, URIC, MG #### [facility] [address] [place] [address] Dr. Hari Palmer Phosphate [Mass/Vol] 4.4 mg/dL Normal 2.6-4.7 [facility] Comment on above: Performed By: #### R ENAL, URIC, MG #### [facility] [address] [place] [address] Dr. Hari Palmer Potassium [Moles/Vol] 4.0 mmol/L Normal 3.5-5.1 [facility] Comment on above: Performed By: #### R ENAL, URIC, MG #### [facility] [address] [place] [address] Dr. Hari Palmer Sodium [Moles/Vol] 137 mmol/L Normal 136-145 [facility] Comment on above: Performed By: #### R ENAL, URIC, MG #### [facility] [address] [place] [address] Dr. Hari Palmer Urea nitrogen [Mass/Vol] 44.0 mg/dL Critically high 7.0-18.0 [facility] Comment on above: Performed By: #### R ENAL, URIC, MG #### [facility] [address] [place] [address] Dr. Hari Palmer URIC ACID SERUMon 04-27-2022 Urate [Mass/Vol] 6.6 mg/dL Critically high 2.6-6.0 [facility] Comment on above: Performed By: #### R ENAL, URIC, MG #### [facility] [address] [place] [address] Dr. Hari Palmer URINE T PROTEIN CREAT RATIOo n 04-27-2022 Protein (U) [Mass/Vol] 31.4 mg/dL Critically high <=12.0 [facility] Comment on above: Performed By: #### M G, URIC, RENAL #### [facility] [address] [place] [address] Dr. Hari Palmer UR PROT CREAT RAT 0.55 Normal [facility] Comment on above: Performed By: #### M G, URIC, RENAL #### [facility] [address] [place] [address] Dr. Hari Palmer URINE CREAT 57.50 mg/dL Normal 20.00-300.00 [facility] Comment on above: Performed By: #### M G, URIC, RENAL #### [facility] [address] [place], [place] [address] Dr. Hari Palmer ECHOCARDIO M/2D COMPLETEon 0 03-29-2022 ECHOCARDIO M/2D COMPLETE Patient: MANDEEP PURI Exam Date: 03/29/2022 : 1975 Gender:F Ordering : HAIDER FRENCH M.D. Admission #: [id number] Family : Order #: [id number] CLICK HERE TO VIEW EXAM ECHOCARDIOGRAM REPORT [...] Area(A4C): 17.00 cm2 Left Atrium Systolic Volume(A2C): 96060 mm3 Left Atrium Systolic Volume(A4C): 06907 mm3 Mitral Valve MV E to A Ratio: 0.80 Deceleration Chaves: 3210 mm/s2 Mitral Valve A-Wave Peak Velocity: [...] M.D. on 04/01/2022 at 12:33 Normal [facility] COVID-19 SOFIAOrdered By: Mary Beth Jones on 03-28-2022 SARS-CoV+SARS-CoV-2 (COVID-19) Ag IA.rapid Ql (Resp) Negative Negative [facility] Comment on above: This is a duplicate Ada SARS Antigen (GLORIA) result to be used for statistical tracking purpose only. No Panel InformationOrdered By: Shabbir Jones on 03-28-2022 SARS Antigen (LFIA) [facility] BLOOD TYPE AND RHon 02-13-20 ABO INTERPRETATION O Normal [facility] Comment on above: Performed By: #### 3 1397, 16214, 79890, 53950, 08918 #### [facility] [address] [place] [address], [place] RH INTERPRETATION Positive Normal [facility] Comment on above: Performed By: #### 3 1397, 10347, 74690, 12065, 30871 #### [facility] [address] BNP (B-TYPE NATRIURETIC PEPT JOEL)on 02-12-2022 Natriuretic peptide B (Bld) [Mass/Vol] 10 pg/mL Normal 0-100 [facility] Comment on above: Result Comment: Give n the appropriate clinical setting a BNP result of >100 pg/mL indicates congestive heart failure. Performed By: #### 8 5123, 09838 #### [facility] [address] CBC W/DIFFon 02-12-2022 ABS IMM GRANS 0.2 10*3/uL Normal 0.0-0.2 [facility] Comment on above: Performed By: #### 3 1397, 65050, 05550, 99618, 26536 #### [facility] [address] ABS NEUTROPHILS 7.8 10*3/uL High 1.6-7.6 [facility] Comment on above: Performed By: #### 3 1397, 44996, 48023, 56196, 72535 #### [facility] [address] [place] [address], [facility] Basophils (Bld) [#/Vol] 0.1 10*3/uL Normal 0.0-0.2 [facility] Comment on above: Performed By: #### 3 1397, 00496, 56359, 62116, 68661 #### [facility] [address] [place] [address], [facility] Basophils/100 WBC (Bld) 0.6 % Normal 0.0-1.0 [facility] Comment on above: Performed By: #### 3 1397, 85041, 77304, 49827, 28155 #### [facility] [address] [place] [address], [facility] Eosinophils (Bld) [#/Vol] 0.3 10*3/uL Normal 0.0-0.5 [facility] Comment on above: Performed By: #### 3 1397, 54116, 31640, 91309, 81332 #### [facility] [address] [place] [address], [facility] Eosinophils/100 WBC (Bld) 2.5 % Normal 0.0-6.0 [facility] Comment on above: Performed By: #### 3 1397, 77312, 81608, 43296, 91176 #### [facility] [address] [place] [address], [facility] Erythrocyte distribution width (RBC) [Ratio] 13.6 % Normal 11.5-15.0 [facility] Comment on above: Performed By: #### 3 1397, 09989, 95423, 76940, 38903 #### [facility] [address] [place] [address], [facility] Hematocrit (Bld) [Volume fraction] 34.5 % Low 36.0-45.0 [facility] Comment on above: Performed By: #### 3 1397, 11679, 27335, 51441, 98754 #### [facility] [address] [place] [address], [facility] Hemoglobin (Bld) [Mass/Vol] 11.3 g/dL Low 12.0-15.0 [facility] Comment on above: Performed By: #### 3 1397, 69979, 74773, 43156, 83027 #### [facility] [address] [place] [address], [facility] IMMATURE GRANS 1.4 % High 0.0-1.0 [facility] Comment on above: Performed By: #### 3 1397, 56808, 50902, 72217, 19940 #### [facility] [address] [place] [address], [facility] Lymphocytes (Bld) [#/Vol] 2.0 10*3/uL Normal 1.2-4.0 [facility] Comment on above: Performed By: #### 3 1397, 50414, 55987, 29240, 04954 #### [facility] [address] [place] [address], [facility] Lymphocytes/100 WBC (Bld) 18.6 % Low 20.0-45.0 [facility] Comment on above: Performed By: #### 3 1397, 59389, 97790, 58846, 13868 #### [facility] [address] MCH (RBC) [Entitic mass] 31.3 pg Normal 27.0-33.0 [facility] Comment on above: Performed By: #### 3 1397, 06809, 65136, 61732, 26724 #### [facility] [address] MCHC (RBC) [Mass/Vol] 32.8 g/dL Normal 32.0-35.0 [facility] Comment on above: Performed By: #### 3 1397, 14295, 43928, 24023, 01353 #### [facility] [address] [place] [address], [facility] MCV (RBC) [Entitic vol] 95.6 fL Normal 82.0-98.0 [facility] Comment on above: Performed By: #### 3 1397, 24488, 59525, 11014, 49295 #### [facility] [address] [place] [address], [facility] Monocytes (Bld) [#/Vol] 0.5 10*3/uL Normal 0.1-1.0 [facility] Comment on above: Performed By: #### 3 1397, 37015, 28865, 81510, 71187 #### [facility] [address] [place] [address], [facility] MONOS 4.9 % Low 5.0-12.0 [facility] Comment on above: Performed By: #### 3 1397, 27206, 41694, 76936, 43631 #### [facility] [address] [place] [address], [facility] Neutrophils/100 WBC (Bld) 72.0 % Normal 40.0-72.0 [facility] Comment on above: Performed By: #### 3 1397, 19745, 08298, 48558, 86653 #### [facility] [address] [place] [address], [facility] Nucleated RBC/100 WBC (Bld) [Ratio] 0 % Normal 0-0 [facility] Comment on above: Performed By: #### 3 1397, 52385, 27060, 83484, 87705 #### [facility] [address] [place] [address], [facility] PLAT CNT 315 10*3/uL Normal 150-400 [facility] Comment on above: Performed By: #### 3 1397, 74465, 33249, 62369, 76791 #### [facility] [address] [place] [address], [facility] RBC (Bld) [#/Vol] 3.61 10*6/uL Low 3.80-5.00 [facility] Comment on above: Performed By: #### 3 1397, 82344, 83370, 56404, 59378 #### [facility] [address] [place] [address], [facility] WBC (Bld) [#/Vol] 10.78 10*3/uL High 4.00-10.60 [facility] Comment on above: Performed By: #### 3 1397, 66326, 95218, 75036, 93791 #### [facility] [address] [place] [address], [facility] CHEST AND LATERALon 02-13-20 CHEST AND LATERAL [facility] Department of Radiology [address] [place] [id number] Patient Name: MANDEEP PURI : 1975 [...] of acute cardiopulmonary pathology. Electronically signed: Royal Doimnguez. Transcribed by: [email or web address], User Resident: Electronically Signed by: ROYAL DOMINGUEZ @ 02/13/2022 11:48 AM Normal [facility] CMV IGG BLOODon 02-12-2022 CMV IGG 3.13 Normal [facility] Comment on above: Result Comment: NORM AL RANGES: < OR = 0.9O NEGATIVE ; NO DETECTABLE IgG ANTIBODY TO CMV 0.91 - 1.09 EQUIVOCAL; REPEAT TESTING SUGGESTED > OR = 1.10 POSITIVE ; INDICATES PRESENCE OF DETECTABLE IgG ANTIBODY TO CMV Performed By: #### 3 1397, 08347, 79133, 30632, 08791 #### [facility] [address] [place] [address], [facility] COMP METABOLIC PANELon 02-12 Albumin [Mass/Vol] 4.5 g/dL Normal 3.5-5.7 [facility] Comment on above: Performed By: #### 2 2505, 74914, 67943 #### [facility] [address] [place] [address], [facility] ALKALINE PHOSPH 89 IU/L Normal 34-104 [facility] Comment on above: Performed By: #### 2 2505, 90500, 06179 #### [facility] [address] [place] [address], [facility] ALT [Catalytic activity/Vol] 12 U/L Normal 7-52 [facility] Comment on above: Performed By: #### 2 2505, 81404, 43319 #### [facility] [address] [place] [address], [facility] AST [Catalytic activity/Vol] 13 U/L Normal 13-39 [facility] Comment on above: Performed By: #### 2 2505, 63081, 69754 #### [facility] [address] [place] [address], [place] Bilirubin [Mass/Vol] 0.3 mg/dL Normal 0.3-1.0 [facility] Comment on above: Performed By: #### 2 2505, 10065, 50749 #### [facility] [address] [place] [address], [place] Calcium [Mass/Vol] 9.5 mg/dL Normal 8.6-10.3 [facility] Comment on above: Performed By: #### 2 2505, 30036, 45321 #### [facility] [address] [place] [address], [place] Chloride [Moles/Vol] 103 mmol/L Normal 98-107 [facility] Comment on above: Performed By: #### 2 2505, 51711, 78001 #### [facility] [address] [place] [address], [place] CO2 [Moles/Vol] 22 mmol/L Normal 21-31 [facility] Comment on above: Performed By: #### 2 2505, 56603, 27129 #### [facility] [address] [place] [address], [place] Creatinine [Mass/Vol] 3.51 mg/dL High 0.60-1.20 [facility] Comment on above: Performed By: #### 2 2505, 15461, 93537 #### [facility] [address] [place] [address], [place] eGFR- 17 ml/min/1.73sq m Abnormal >60 [facility] Comment on above: Performed By: #### 2 2505, 61456, 35009 #### [facility] [address] [place] [address], [place] eGFR- non- 14 ml/min/1.73sq m Abnormal >60 [facility] Comment on above: Performed By: #### 2 2505, 01300, 68616 #### [facility] [address] [place] [address], [place] Glucose [Mass/Vol] 100 mg/dL Normal 70-100 [facility] Comment on above: Performed By: #### 2 2505, 05371, 86879 #### [facility] [address] [place] [address], [place] Potassium [Moles/Vol] 3.9 mmol/L Normal 3.5-5.1 [facility] Comment on above: Performed By: #### 2 2505, 70859, 56517 #### [facility] [address] [place] [address], [facility] Protein [Mass/Vol] 8.0 g/dL Normal 6.0-8.3 [facility] Comment on above: Performed By: #### 2 2505, 05425, 57034 #### [facility] [address] [place] [address], [facility] Sodium [Moles/Vol] 136 mmol/L Normal 136-145 [facility] Comment on above: Performed By: #### 2 2505, 82405, 34385 #### [facility] [address] [place] [address], [facility] Urea nitrogen [Mass/Vol] 41 mg/dL High 7-25 [facility] Comment on above: Performed By: #### 2 2505, 05752, 03692 #### [facility] [address] [place] [address], [facility] CREATININE URINE RANDOMon Creatinine (U) [Mass/Vol] 63.0 mg/dL Normal [facility] Comment on above: Result Comment: Ther e are no established reference values for random urine specimens Performed By: #### 3 1397, 04480, 35491, 23216, 69762 #### [facility] [address] [place] [address], [facility] CT RENAL RECIPIENT ABDOMEN A ND PEVLIS WO CONTRASTon 02-12-2022 CT RENAL RECIPIENT ABDOMEN AND PEVLIS WO CONTRAST [facility] Department of Radiology [address] [place] [address] Patient Name: MANDEEP PURI : 1975 Sex: F Age: Race: White Pt. Location: 20 Patient Status: O Ordered Date: 02/12/2022 1:55:00 PM Completed Date: 02/12/2022 02:04 PM Requesting Provider: HAIDER FRENCH Attending Provider: HAIDER FRENCH Report Copy To: Signs & Symptoms: Z01.818 Encounter for other preprocedural examination I10 History: [place] Comments: , Pre-kidney transplant work-up. Please evaluate [...] achievable. Electronically signed: NAN SARAVIA. Transcribed by: [email or web address], User Resident: Electronically Signed by: NAN SARAVIA @ 02/12/2022 02:59 PM Normal [facility] Comment on above: [...] Bilirubin.direct [Mass/Vol] 0.0 mg/dL Normal 0.0-0.2 [facility] Comment on above: Performed By: #### 2 0545, 57269, 47358 #### [facility] [address] [place] [address], [facility] BRETT LAGUERRE VIRUS ABon 05-1 EB VCA IGG 2.35 Normal [facility] Comment on above: Order Comment: CONSI STENT WITH PAST EBV INFECTION Result Comment: NORM AL RANGES: < OR = 0.9O NEGATIVE ; NO DETECTABLE IgG ANTIBODY TO EBV-VCA 0.91 - 1.09 EQUIVOCAL; REPEAT TESTING SUGGESTED > OR = 1.10 POSITIVE ; INDICATES PRESENCE OF DETECTABLE IgG ANTIBODY TO EBV Performed By: #### 3 1397, 17075, 16987, 20960, 40579 #### [facility] [address] [place] [address], [facility] EB VCA IGM 0.00 Normal [facility] Comment on above: Order Comment: CONSI STENT WITH PAST EBV INFECTION Result Comment: NORM AL RANGES: < OR = 0.9O NEGATIVE ; NO SIGNIFICANT LEVEL OF DETECTABLE EBV-VCA IgM AB 0.91 - 1.09 EQUIVOCAL; REPEAT TESTING SUGGESTED > OR = 1.10 POSITIVE ; SIGNIFICANT LEVEL OF DETECTABLE EBV-VCA IgM AB Performed By: #### 3 1397, 19935, 38671, 37822, 49133 #### [facility] [address] [place] [address], [facility] HEMOGLOBIN A1Con 02-12-2022 Glucose [Moles/Vol] 120 mmol/L Normal [facility] Comment on above: Performed By: #### 8 5913, 28112 #### [facility] [address] [place] [address], [facility] HbA1c (Bld) [Mass fraction] 5.8 % Normal 4.0-6.0 [facility] Comment on above: Performed By: #### 8 8463, 47324 #### [facility] [address] [place] [id number], [facility] HEPATITIS A ANTIBODY IGMon 0 02-12-2022 HEP A AB IGM Non-Reactive Normal NONREACTIVE [facility] Comment on above: Performed By: #### 3 1397, 24291, 95368, 63521, 70500 #### [facility] [address] [place] [address], [facility] HEPATITIS B CORE ANTIBODYon 02-12-2022 HEP B CORE AB Non-Reactive Normal NONREACTIVE [facility] Comment on above: Performed By: #### 3 1397, 32474, 11661, 32410, 68153 #### [facility] [address] HEPATITIS B SURFACE ANTIBODY QUANTon 02-12-2022 HEP B SURF AB 1.14 mIU/ml Normal [facility] Comment on above: Result Comment: INTE RPRETATION: NONREACTIVE<8.00 mIU/mL INDETERMINATE8.00 - 12.00 mIU/mL REACTIVE>12 mIU/mL Performed By: #### 3 1397, 24290, 23728, 79902, 52373 #### [facility] [address] HEPATITIS B SURFACE ANTIGEN QUALon 02-12-2022 HEP B SURF AG QUAL Non-Reactive Normal NONREACTIVE [facility] Comment on above: Performed By: #### 3 1397, 84670, 07632, 68759, 15312 #### [facility] [address] HEPATITIS C ANTIBODYon 02-12 ANTI-HCV Non-Reactive Normal NONREACTIVE [facility] Comment on above: Performed By: #### 3 1397, 87016, 14893, 46182, 43050 #### [facility] [address] HIV1 AND 2 COMBO 4Gon 2021 HIV COMBO Negative Normal NEGATIVE [facility] Comment on above: Performed By: #### 3 1397, 50901, 61504, 60186, 67711 #### [facility] [address] [facility]. [address] HLA ABC CLASS I TYPINGon A*-1 EQUIVALENT 1 Normal [facility] Comment on above: [...] to frequency. Performed By: #### 3 1397, 97543, 12787, 73411, 73716 #### [facility] [address] [place] [address], [place] A*-2 EQUIVALENT 2 Normal [facility] Comment on above: [...] to frequency. Performed By: #### 3 1397, 12851, 46117, 51440, 31025 #### [facility] [address] [place] [address], [place] B*-1 EQUIVALENT 35 Normal [facility] Comment on above: [...] to frequency. Performed By: #### 3 1397, 01976, 59038, 45844, 63912 #### [facility] [address] [place] [address], [place] B*-2 EQUIVALENT 37 Normal [facility] Comment on above: [...] to frequency. Performed By: #### 3 1397, 91310, 43684, 24690, 66909 #### [facility] [address] [place] [address], [place] Bw*-1 EQUIVALENT 4 Normal [facility] Comment on above: [...] to frequency. Performed By: #### 3 1397, 33713, 42702, 86447, 71850 #### [facility] [address] [place] [address], [place] Bw*-2 EQUIVALENT 6 Normal [facility] Comment on above: [...] to frequency. Performed By: #### 3 1397, 97844, 66758, 48463, 00136 #### [facility] [address] [place] [address], [place] C*-1 EQUIVALENT 4 Normal [facility] Comment on above: [...] to frequency. Performed By: #### 3 1397, 66952, 46704, 81751, 38282 #### [facility] [address] [place] [address], [facility] C*-2 EQUIVALENT 6 Normal [facility] Comment on above: [...] to frequency. Performed By: #### 3 1397, 23317, 78003, 04943, 27551 #### [facility] [address] [place] [address], [facility] METHOD Class I Typing by PCR-SSOP Luminex Normal [facility] Comment on above: [...] to frequency. Performed By: #### 3 1397, 00775, 95426, 49124, 04517 #### [facility] [address] [place] [address], [facility] SIGNED BY Normal [facility] Comment on above: [...] to frequency. Result Comment: Nelson Noriega, MS,CHT(DONA),MT(ASCP) Telephone Information Supervisor, Transplant Immunology Performed By: #### 3 1397, 53539, 66669, 68590, 71197 #### [facility] [address] [place] [address], [facility] HLA DR CLASS II TYPINGon DPB1*-1 EQUIVALENT 04:01 Normal [facility] Comment on above: [...] to frequency. Performed By: #### 3 1397, 45280, 58719, 84716, 14459 #### [facility] [address] [place] [address], [facility] DPB1*-2 EQUIVALENT 04:02 Normal [facility] Comment on above: [...] to frequency. Performed By: #### 3 1397, 80966, 70883, 23466, 82032 #### [facility] [address] [place] [address], [facility] DQA1*-1 EQUIVALENT 01 Normal [facility] Comment on above: [...] to frequency. Performed By: #### 3 1397, 82828, 73743, 13440, 10512 #### [facility] [address] [place] [address], [place] DQA1*-2 EQUIVALENT 05 Normal [facility] Comment on above: [...] to frequency. Performed By: #### 3 1397, 72807, 35467, 23030, 23001 #### [facility] [address] [place] [address], [place] DQB1*-1 EQUIVALENT 7 Normal [facility] Comment on above: [...] to frequency. Performed By: #### 3 1397, 51813, 89622, 76061, 08101 #### [facility] [address] [place] [address], [place] DQB1*-2 EQUIVALENT 5 Normal [facility] Comment on above: [...] to frequency. Performed By: #### 3 1397, 43415, 63914, 35231, 92970 #### [facility] [address] [place] [address], [facility] DRB1*-1 EQUIVALENT 10 Normal [facility] Comment on above: [...] to frequency. Performed By: #### 3 1397, 04903, 86596, 75297, 13385 #### [facility] [address] [place] [address], [facility] DRB1*-2 EQUIVALENT 11 Normal [facility] Comment on above: [...] to frequency. Performed By: #### 3 1397, 18972, 69786, 43402, 21462 #### [facility] [address] [place] [address], [facility] DRB3*-1 EQUIVALENT 52 Normal [facility] Comment on above: [...] to frequency. Performed By: #### 3 1397, 23344, 97742, 67886, 84121 #### [facility] [address] [place] [address], [facility] METHOD Class II Typing by PCR-SSOP Luminex Normal [facility] Comment on above: [...] to frequency. Performed By: #### 3 1397, 99683, 69874, 99701, 33916 #### [facility] [address] [place] [address], [facility] LIPID PROFILEon 02-12-2022 Cholesterol [Mass/Vol] 221 mg/dL High 120-200 Th e [facility] Comment on above: Result Comment: CHOL ESTEROL REFERENCE RANGE: 20 YEARS AND OLDER CARDIOVASCULAR RISK Less than 200 mg/dl Low Risk 200 to 239 mg/dl Borderline Risk 240 mg/dl and greater High Risk Performed By: #### 3 1397, 53246, 79897, 04918, 73129 #### [facility] [address] [place] [address], [facility] Cholesterol in HDL [Mass/Vol] 40 mg/dL Normal 23-92 [facility] Comment on above: Result Comment: Slig ht variation in normal range could be due to gender and/or age. HDL CHOLESTEROL REFERENCE RANGE: 20 years and older Cardiovascular Risk > or =60 mg/dL Desirable 40 TO 59 mg/dL Low Risk <40 mg/dL High Risk Performed By: #### 3 1397, 83133, 64339, 47482, 36178 #### [facility] [address] [place] [address], [facility] Cholesterol in LDL [Mass/Vol] 101 mg/dL Normal 0-130 [facility] Comment on above: Result Comment: LDL IS A CALCULATION LDL IS ONLY VALID IF THE TRIG IS LESS THAN 400. Performed By: #### 3 1397, 33511, 57328, 89301, 99390 #### [facility] [address] [place] [address], [facility] Cholesterol.total/Chol esterol in HDL [Mass ratio] 5.5 {ratio} High .0-4.5 [facility] Comment on above: Performed By: #### 3 1397, 10835, 19886, 42405, 95970 #### [facility] [address] [place] [address], [facility] NON-HDL CHOLESTEROL 181 mg/dL Normal [facility] Comment on above: Performed By: #### 3 1397, 44170, 48163, 95593, 21799 #### [facility] [address] [place] [address], [facility] Triglyceride [Mass/Vol] 402 mg/dL High 40-149 [facility] Comment on above: Result Comment: TRIG LYCERIDE REFERENCE RANGE: 20 YEARS AND OLDER CARDIOVASCULAR RISK LESS THAN 150 mg/dl LOW RISK 150 TO 199 mg/dl BORDERLINE RISK 200 mg/dl AND GREATER HIGH RISK Performed By: #### 3 1397, 16558, 19711, 22571, 21835 #### [facility] [address] [place] [address], [place] VLDL CHOL 80 mg/dL High 0-40 [facility] Comment on above: Performed By: #### 3 1397, 19953, 83561, 66550, 51593 #### [facility] [address] [place] [address], [place] MUMPS IGG BLDon 02-12-2022 MUMPS IGG 5.46 Normal [facility] Comment on above: Result Comment: NORM AL RANGES: < OR = 0.9O NEGATIVE ; NO DETECTABLE IgG ANTIBODY TO MUMPS 0.91 - 1.09 EQUIVOCAL; REPEAT TESTING SUGGESTED > OR = 1.10 POSITIVE ; INDICATES PRESENCE OF DETECTABLE IgG ANTIBODY TO MUMPS Performed By: #### 3 1397, 61613, 16010, 37453, 69198 #### [facility] [address] RUBELLAon 02-12-2022 RUBELLA 4.79 Normal [facility] Comment on above: Result Comment: NORM AL RANGES: < OR = 0.9O NEGATIVE ; NO DETECTABLE IgG ANTIBODY TO RUBELLA 0.91 - 1.09 EQUIVOCAL; REPEAT TESTING SUGGESTED > OR = 1.10 POSITIVE ; INDICATES PRESENCE OF DETECTABLE IgG ANTIBODY TO RUBELLA VIRUS Performed By: #### 3 1397, 81261, 05733, 14732, 25160 #### [facility] [address] RUBEOLA MEASLES IGGon 2021 RUBEO IGG 6.43 Normal [facility] Comment on above: Result Comment: NORM AL RANGES: < OR = 0.9O NEGATIVE ; NO DETECTABLE IgG ANTIBODY TO RUBEOLA 0.91 - 1.09 EQUIVOCAL; REPEAT TESTING SUGGESTED > OR = 1.10 POSITIVE ; INDICATES PRESENCE OF DETECTABLE IgG ANTIBODY TO RUBEOLA Performed By: #### 3 1397, 60631, 99979, 43724, 32288 #### [facility] [address] SINGLE ANTIGEN CLASS 1on METHOD Class I Single Antigen Normal Th e [facility] Comment on above: [...] to frequency. Performed By: #### 3 1397, 47956, 17555, 36362, 83153 #### [facility] [address] [place] [address], [facility] SINGLE ANTIGEN CLASS 2on COMMENTS Normal [facility] Comment on above: [...] watch list. Performed By: #### 3 1397, 12230, 33185, 62818, 89503 #### [facility] [address] [facility]. [address] Result Comment: Clas s I Antigen Microbeads Potential specificites added to the watch list. CPRA 0 Normal [facility] Comment on above: [...] to frequency. Performed By: #### 3 1397, 65380, 24715, 59328, 08771 #### [facility] [address] [place] [address], [facility] METHOD Class II Single Antigen Normal T he [facility] Comment on above: [...] to frequency. Performed By: #### 3 1397, 70299, 09528, 71296, 73791 #### [facility] [address] [place] [address], [facility] T PROT UR Yesy 02-12-2022 U TOTAL PROTEIN 44.0 mg/dL Normal [facility] Comment on above: Result Comment: Ther e are no established reference values for random urine specimens Performed By: #### 3 1397, 23328, 00231, 06874, 03922 #### [facility] [address] TB QUANTIFERON PLUSon 2021 MITOGEN MINUS NIL >10.00 Normal [facility] Comment on above: Performed By: #### 3 1592 #### [facility] [address] [facility]. [address] NIL 0.03 IU/mL Normal [facility] Comment on above: Performed By: #### 3 1592 #### [facility] [address] [facility] TB QUANTIFERON Negative Normal NEGATIVE [facility] Comment on above: Result Comment: Jadeil tiferon TB Gold Interpretation (IU/mL): NEGATIVE: M. tuberculosis infection not likely. Nil: <=8.0 TB1 Antigen minus Nil (IM3JR-PJU): <0.35 OR >=0.35; and <25% of Nil value. TB2 Antigen minus Nil (BB3YL-REG): <0.35 OR >=0.35; and <25% of Nil [...] (https://www.cdc.gov/tb/publications/guidlines/default.htm Performed By: #### 3 1592 #### [facility] [address] [place] [address], [place] TB1 AG 0.05 IU/mL Normal [facility] Comment on above: Performed By: #### 3 1592 #### [facility] [address] [place] [address], [place] TB1 AG MINUS NIL 0.02 IU/mL Normal [facility] Comment on above: Performed By: #### 3 1592 #### [facility] [address] [place] [address], [place] TB2 AG 0.05 IU/mL Normal [facility] Comment on above: Performed By: #### 3 1592 #### [facility] [address] [place] [address], [place] TB2 AG MINUS NIL 0.02 IU/mL Normal [facility] Comment on above: Performed By: #### 3 1592 #### [facility] [address] [place] [address], [place] UA,MICROSCOPIC REQUIREDon Appearance (U) SL CLOUDY Abnormal CLEAR [facility] Comment on above: Performed By: #### 3 1397, 47105, 92772, 17309, 06505 #### [facility] [address] [place] [address], [place] Bilirubin Ql (U) Negative Normal NEGATIVE [facility] Comment on above: Performed By: #### 3 1397, 34027, 66264, 73656, 80518 #### [facility] [address] [place] [address], [place] Color (U) STRAW Abnormal YELLOW [facility] Comment on above: Performed By: #### 3 1397, 58902, 18213, 54774, 18742 #### [facility] [address] [place] [address], [place] EPIS MANY Abnormal FEW,OCC,NONE SEEN [facility] Comment on above: Performed By: #### 3 1397, 44271, 89345, 42399, 45867 #### [facility] [address] [place] [address], [facility] Glucose Ql (U) 50 mg/dL Abnormal NEGATIVE [facility] Comment on above: Performed By: #### 3 1397, 12722, 80622, 25160, 26717 #### [facility] [address] [place] [address], [facility] Hemoglobin Ql (U) Negative Normal NEGATIVE [facility] Comment on above: Performed By: #### 3 1397, 78212, 55129, 47053, 70134 #### [facility] [address] [place] [address], [facility] KETONE Negative Normal NEGATIVE [facility] Comment on above: Performed By: #### 3 1397, 98778, 72164, 65882, 34199 #### [facility] [address] [place] [address], [facility] LEUK MARYAN MODERATE Abnormal NEGATIVE [facility] Comment on above: Performed By: #### 3 1397, 00312, 97407, 00144, 87765 #### [facility] [address] [place] [address], [facility] Nitrite Ql (U) Negative Normal NEGATIVE [facility] Comment on above: Performed By: #### 3 1397, 10146, 02440, 48210, 19885 #### [facility] [address] [place] [address], [facility] pH (U) 7.0 [pH] Normal 5.0-8.0 [facility] Comment on above: Performed By: #### 3 1397, 86360, 56368, 90815, 07921 #### [facility] [address] [place] [address], [facility] Protein Ql (U) 30 mg/dL Abnormal NEGATIVE [facility] Comment on above: Performed By: #### 3 1397, 65165, 86975, 59217, 35952 #### [facility] [address] [place] [address], [facility] RBC NONE SEEN Normal NONE SEEN [facility] Comment on above: Performed By: #### 3 1397, 24289, 38694, 17944, 20108 #### [facility] [address] [facility] SPEC GRAV 1.009 Low 1.015-1.020 [facility] Comment on above: Performed By: #### 3 1397, 51999, 91045, 02590, 50429 #### [facility] [address] [facility]. [address] WBC UA 11-20 Abnormal NONE SEEN [facility] Comment on above: Performed By: #### 3 1397, 44931, 10901, 52680, 88311 #### [facility] [address] [facility] VARICELLA ZOSTER IGGon 02-12 VARICELLA IGG 3.29 Normal [facility] Comment on above: Result Comment: NORM AL RANGES: < OR = 0.9O NEGATIVE ; NO DETECTABLE IgG ANTIBODY TO VARICELLA-ZOSTER VIRUS 0.91 - 1.09 EQUIVOCAL; REPEAT TESTING SUGGESTED > OR = 1.10 POSITIVE ; INDICATES PRESENCE OF DETECTABLE IgG ANTIBODY TO VARICELLA-ZOSTER VIRUS Performed By: #### 3 [id number], [id number], [id number], [id number], [id number] #### [facility] [address] [facility]. [address] PTH INTACTon 12-04-2021 PTH, Intact 165 pg/mL Critically high 15-65 [facility] Comment on above: Performed By: #### M G, URIC, RENAL #### [facility] [address] [address] [address] Hari Palmer FERRITINon 12-03-2021 Ferritin [Mass/Vol] 256.0 ng/mL Critically high 6.2-137.0 [facility] Comment on above: Performed By: #### M G, URIC, RENAL #### [facility] [address] [place] [address] Dr. Hari Palmer HEMOGRAM AND PLATELon 2021 Hematocrit (Bld) [Volume fraction] 33.7 % Critically low 36.0-48.0 [facility] Comment on above: Performed By: #### M G, URIC, RENAL #### [facility] [address] [place] [address] Dr. Hari Palmer Hemoglobin (Bld) [Mass/Vol] 10.9 g/dL Critically low 12.0-16.0 [facility] Comment on above: Performed By: #### M G, URIC, RENAL #### [facility] [address] [place] [address] Dr. Hari Palmer MCH (RBC) [Entitic mass] 31.4 pg Normal 26.7-34.0 [facility] Comment on above: Performed By: #### M G, URIC, RENAL #### [facility] [address] [place] [address] Dr. Hari Palmer MCHC (RBC) [Mass/Vol] 32.3 g/dL Normal 29.9-35.2 [facility] Comment on above: Performed By: #### M G, URIC, RENAL #### [facility] [address] [place] [address] Dr. Hari Palmer MCV (RBC) [Entitic vol] 97.1 fL Normal 81.0-99.0 [facility] Comment on above: Performed By: #### M G, URIC, RENAL #### [facility] [address] [place] [address] Dr. Hari Palmer PLT 314 103/ul Normal 150-450 [facility] Comment on above: Performed By: #### M G, URIC, RENAL #### [facility] [address] [place] [address] Dr. Hari Palmer RBC 3.47 106/ul Critically low 4.20-5.40 [facility] Comment on above: Performed By: #### M G, URIC, RENAL #### [facility] [address] [place] [address] Dr. Hari Palmer WBC 9.4 103/ul Normal 4.0-11.0 [facility] Comment on above: Performed By: #### M G, URIC, RENAL #### [facility] [address] [place] [address] Dr. Hari Palmer IRON AND TIBCon 12-03-2021 % SATURATION 19.0 % Normal [facility] Comment on above: Performed By: #### M G, URIC, RENAL #### [facility] [address] [place] [address] Dr. Hari Palmer Iron [Mass/Vol] 52.0 ug/dL Normal 37.0-170.0 [facility] Comment on above: Performed By: #### M G, URIC, RENAL #### [facility] [address] [place] [address] Dr. Hari Palmer TIBC DIRECT 273.0 ug/dL Normal 261.0-497.0 [facility] Comment on above: Performed By: #### M G, URIC, RENAL #### [facility] [address] [place] [address] Dr. Hari Palmer MAGNESIUMon 12-03-2021 Magnesium [Mass/Vol] 2.1 mg/dL Normal 1.6-2.3 [facility] Comment on above: Performed By: #### M G, URIC, RENAL #### [facility] [address] [place] [address] Dr. Hari Palmer RENAL FUNCTION PANELon 12-03 Albumin [Mass/Vol] 3.6 g/dL Normal 3.5-5.0 [facility] Comment on above: Performed By: #### M G, URIC, RENAL #### [facility] [address] [place] [address] Dr. Hari Palmer Calcium [Mass/Vol] 8.4 mg/dL Normal 8.4-10.2 [facility] Comment on above: Performed By: #### M G, URIC, RENAL #### [facility] [address] [place] [address] Dr. Hari Palmer Chloride [Moles/Vol] 101 mmol/L Normal 98-107 [facility] Comment on above: Performed By: #### M G, URIC, RENAL #### [facility] [address] [address] [address] Hari Palmer CO2 [Moles/Vol] 24.3 mmol/L Normal 22.0-30.0 [facility] Comment on above: Performed By: #### M G, URIC, RENAL #### [facility] [address] [place] [address] Dr. Hari Palmer Creatinine [Mass/Vol] 3.32 mg/dL Critically high 0.52-1.04 [facility] Comment on above: Performed By: #### M Edy, URIC, RENAL #### [facility] [address] [place] [address] Dr. Hari Palmer EGFR-AF BELARUSIAN 18 mL/min/1.73m2 Critically low >=60 [facility] Comment on above: Performed By: #### M G, URIC, RENAL #### [facility] [address] [place] [address] Dr. Hari Palmer EGFR-NON AF BELARUSIAN 15 mL/min/1.73m2 Critically low >=60 [facility] Comment on above: Performed By: #### M G, URIC, RENAL #### [facility] [address] [place] [address] Dr. Hari Palmer Glucose [Mass/Vol] 119 mg/dL Critically high 74-106 [facility] Comment on above: Performed By: #### M G, URIC, RENAL #### [facility] [address] [place] [address] Dr. Hari Palmer Phosphate [Mass/Vol] 4.7 mg/dL Critically high 2.5-4.5 [facility] Comment on above: Performed By: #### M G, URIC, RENAL #### [facility] [address] [place] [address] Dr. Hari Palmer Potassium [Moles/Vol] 4.0 mmol/L Normal 3.4-5.0 [facility] Comment on above: Performed By: #### M G, URIC, RENAL #### [facility] [address] [address] [address] Hari Palmer Sodium [Moles/Vol] 135 mmol/L Critically low 137-145 [facility] Comment on above: Performed By: #### M G, URIC, RENAL #### [facility] [address] [place] [address] Dr. Hari Palmer Urea nitrogen [Mass/Vol] 42.0 mg/dL Critically high 7.0-17.0 [facility] Comment on above: Performed By: #### M G, URIC, RENAL #### [facility] [address] [place] [address] Dr. Hari Palmer UA RANDOM W/MICROSCOPICon BACTERIA TRACE Abnormal NONE SEEN [facility] Comment on above: Performed By: #### U AMIC #### [facility] [address] [place] [address] Dr. Hari Palmer Bilirubin Ql (U) Negative Normal NEGATIVE [facility] Comment on above: Performed By: #### U AMIC #### [facility] [address] [place] [address] Dr. Hari Palmer CAST NONE SEEN Normal NONE SEEN [facility] Comment on above: Performed By: #### U AMIC #### [facility] [address] [place] [address] Dr. Hari Palmer Clarity (U) CLEAR Normal CLEAR [facility] Comment on above: Performed By: #### U AMIC #### [facility] [address] [place] [address] Dr. Hari Palmer Color (U) LT. YELLOW Normal YELLOW [facility] Comment on above: Performed By: #### U AMIC #### [facility] [address] [place] [address] Dr. Hari Palmer Crystals LM Nom (Urine sed) NONE SEEN Normal NONE SEEN [facility] Comment on above: Performed By: #### U AMIC #### [facility] [address] [place] [address] Dr. Hari Palmer Epithelial cells LM Ql (Urine sed) FEW Abnormal NONE SEEN /RARE [facility] Comment on above: Performed By: #### U AMIC #### [facility] [address] [place] [address] Dr. Hari Palmer Glucose Ql (U) 100 mg/dl Abnormal NEGATIVE [facility] Comment on above: Performed By: #### U AMIC #### [facility] [address] [address] [address] Hari Palmer Hemoglobin Ql (U) TRACE-INTACT Abnormal NEGATIVE [facility] Comment on above: Performed By: #### U AMIC #### [facility] [address] [address] [address] Hari Palmer Ketones Ql (U) Negative Normal NEGATIVE [facility] Comment on above: Performed By: #### U AMIC #### [facility] [address] [place] [address] Dr. Hari Palmer LEUKOCYTES SMALL Abnormal NEGATIVE [facility] Comment on above: Performed By: #### U AMIC #### [facility] [address] [place] [address] Dr. Hari Palmer MUCOUS NONE SEEN Normal NONE SEEN [facility] Comment on above: Performed By: #### U AMIC #### [facility] [address] [place] [address] Dr. Hari Palmer Nitrite Ql (U) Negative Normal NEGATIVE [facility] Comment on above: Performed By: #### U AMIC #### [facility] [address] [place] [address] Dr. Hari Palmer pH (U) 6.0 [pH] Normal 5-9 [facility] Comment on above: Performed By: #### U AMIC #### [facility] [address] [place] [address] Dr. Hari Palmer RBC 0-2 Normal 0-2 [facility] Comment on above: Performed By: #### U AMIC #### [facility] [address] [place] [address] Dr. Hari Palmer SPEC GRAVITY 1.010 Normal 1.005-<=1.02 5 [facility] Comment on above: Performed By: #### U AMIC #### [facility] [address] [address] [address] Hari Palmer UA PROTEIN Negative Normal NEGATIVE/ TRACE [facility] Comment on above: Performed By: #### U AMIC #### [facility] [address] [address] [address] Hari Palmer Urobilinogen Qn (U) 0.2 {Janice'U}/dL Normal 0.2 - 1. 0 [facility] Comment on above: Performed By: #### U AMIC #### [facility] [address] [address] [address] Hari Palmer WBC 5-10 Abnormal NONE SEEN [facility] Comment on above: Performed By: #### U AMIC #### [facility] [address] [place] [address] Dr. Hari Palmer URIC ACID SERUMon 12-03-2021 Urate [Mass/Vol] 4.6 mg/dL Normal 2.5-6.2 [facility] Comment on above: Performed By: #### M G, URIC, RENAL #### [facility] [address] [place] [address] Dr. Hari Palmer URINE T PROTEIN CREAT RATIOo n 12-03-2021 Protein (U) [Mass/Vol] 31.7 mg/dL Critically high <=12.0 [facility] Comment on above: Performed By: #### M G, URIC, RENAL #### [facility] [address] [place] [address] Dr. Hari Palmer UR PROT CREAT RAT 0.54 Normal [facility] Comment on above: Performed By: #### M G, URIC, RENAL #### [facility] [address] [place] [address] Dr. Hari Palmer URINE CREAT 59.03 mg/dL Normal 20.00-300.00 [facility] Comment on above: Performed By: #### M G, URIC, RENAL #### [facility] [address] [place] [address] Dr. Hari Palmer VITAMIN D 25 OHon 12-03-2021 VIT D 25-OH 38.1 ng/mL Normal [facility] Comment on above: Performed By: #### M G, URIC, RENAL #### [facility] [address] [place] [address] Dr. Hari Palmer VIT D RANGES SEE BELOW Normal [facility] Comment on above: Result Comment: <20 ng/mL Vit D deficient 20 - <30 ng/mL Vit D insufficient 30 - 100 ng/mL Vit D sufficient >100 ng/mL Potential Toxicity Performed By: #### M G, URIC, RENAL #### [facility] [address] [place] [address] Dr. Hari Palmer PTH INTACTon 09-03-2021 PTH, Intact 177 pg/mL Critically high 15-65 [facility] Comment on above: Performed By: #### P THINT #### [facility] [address] [place] [address] Dr. Hari Palmer CBC AUTO DIFFon 09-01-2021 BASO # 0.1 103/ul Normal 0.0-0.1 [facility] Comment on above: Performed By: #### M G, URIC, RENAL #### [facility] [address] [place] [address] Dr. Hari Palmer Basophils/100 WBC (Bld) 0.6 % Normal 0.2-2.0 [facility] Comment on above: Performed By: #### M G, URIC, RENAL #### [facility] [address] [place] [address] Dr. Hari Palmer EO # 0.3 103/ul Normal 0.0-0.7 [facility] Comment on above: Performed By: #### M G, URIC, RENAL #### [facility] [address] [place] [address] Dr. Hari Palmer Eosinophils/100 WBC (Bld) 3.5 % Normal 0.9-7.0 [facility] Comment on above: Performed By: #### M G, URIC, RENAL #### [facility] [address] [place] [address] Dr. Hari Palmer Erythrocyte distribution width (RBC) [Ratio] 13.8 % Normal 11.0-15.0 [facility] Comment on above: Performed By: #### M G, URIC, RENAL #### [facility] [address] [place] [address] Dr. Hari Palmer Hematocrit (Bld) [Volume fraction] 32.8 % Critically low 36.0-48.0 [facility] Comment on above: Performed By: #### M G, URIC, RENAL #### [facility] [address] [place] [address] Dr. Hari Palmer Hemoglobin (Bld) [Mass/Vol] 10.6 g/dL Critically low 12.0-16.0 [facility] Comment on above: Performed By: #### M G, URIC, RENAL #### [facility] [address] [place] [address] Dr. Hari Palmer IG # 0.14 10e3/ul Critically high 0.00-0.03 [facility] Comment on above: Performed By: #### M G, URIC, RENAL #### [facility] [address] [place] [address] Dr. Hari Palmer IG % 1.5 % Critically high 0.0-0.5 [facility] Comment on above: Performed By: #### M G, URIC, RENAL #### [facility] [address] [place] [address] Dr. Hari Palmer LYMPH # 1.8 103/ul Normal 1.2-3.8 [facility] Comment on above: Performed By: #### M G, URIC, RENAL #### [facility] [address] [place] [address] Dr. Hari Palmer Lymphocytes/100 WBC (Bld) 19.3 % Critically low 20.5-60.0 [facility] Comment on above: Performed By: #### M G, URIC, RENAL #### [facility] [address] [place] [address] Dr. Hari Palmer MANUAL DIFF REQ NO Normal [facility] Comment on above: Performed By: #### M G, URIC, RENAL #### [facility] [address] [place] [address] Dr. Hari Palmer MCH (RBC) [Entitic mass] 31.4 pg Normal 26.7-34.0 [facility] Comment on above: Performed By: #### M G, URIC, RENAL #### [facility] [address] [place] [address] Dr. Hari Palmer MCHC (RBC) [Mass/Vol] 32.3 g/dL Normal 29.9-35.2 [facility] Comment on above: Performed By: #### M G, URIC, RENAL #### [facility] [address] [place] [address] Dr. Hari Palmer MCV (RBC) [Entitic vol] 97.0 fL Normal 81.0-99.0 [facility] Comment on above: Performed By: #### M G, URIC, RENAL #### [facility] [address] [place] [address] Dr. Hari Palmer MONO # 0.4 103/ul Normal 0.3-0.8 [facility] Comment on above: Performed By: #### M G, URIC, RENAL #### [facility] [address] [place] [address] Dr. Hari Palmer Monocytes/100 WBC (Bld) 4.2 % Normal 1.7-12.0 [facility] Comment on above: Performed By: #### M G, URIC, RENAL #### [facility] [address] [place] [address] Dr. Hari Palmer NEUT # 6.5 103/ul Normal 1.4-6.5 [facility] Comment on above: Performed By: #### M G, URIC, RENAL #### [facility] [address] [place] [address] Dr. Hari Palmer Neutrophils/100 WBC (Bld) 70.9 % Normal 43.0-75.0 [facility] Comment on above: Performed By: #### M G, URIC, RENAL #### [facility] [address] [place] [address] Dr. Hari Palmer Platelet mean volume (Bld) [Entitic vol] 9.0 fL Critically low 9.5-13.5 [facility] Comment on above: Performed By: #### M G, URIC, RENAL #### [facility] [address] [address] [address] Hari Palmer PLT 289 103/ul Normal 150-450 [facility] Comment on above: Performed By: #### M G, URIC, RENAL #### [facility] [address] [place] [address] Dr. Hari Palmer RBC 3.38 106/ul Critically low 4.20-5.40 [facility] Comment on above: Performed By: #### M G, URIC, RENAL #### [facility] [address] [place] [address] Dr. Hari Palmer WBC 9.1 103/ul Normal 4.0-11.0 [facility] Comment on above: Performed By: #### M G, URIC, RENAL #### [facility] [address] [place] [address] Dr. Hari Palmer FERRITINon 09-01-2021 Ferritin [Mass/Vol] 204.0 ng/mL Critically high 6.2-137.0 [facility] Comment on above: Performed By: #### M G, URIC, RENAL #### [facility] [address] [place] [address] Dr. Hari Palmer IRON AND TIBCon 09-01-2021 % SATURATION 28.4 % Normal [facility] Comment on above: Performed By: #### M G, URIC, RENAL #### [facility] [address] [place] [address] Dr. Hari Palmer Iron [Mass/Vol] 80.0 ug/dL Normal 37.0-170.0 [facility] Comment on above: Performed By: #### M G, URIC, RENAL #### [facility] [address] [place] [address] Dr. Hari Palmer TIBC DIRECT 282.0 ug/dL Normal 261.0-497.0 [facility] Comment on above: Performed By: #### M G, URIC, RENAL #### [facility] [address] [place] [address] Dr. Hari Palmer MAGNESIUMon 09-01-2021 Magnesium [Mass/Vol] 2.2 mg/dL Normal 1.6-2.3 [facility] Comment on above: Performed By: #### U AMIC #### [facility] [address] [place] [address] Dr. Hari Palmer RENAL FUNCTION PANELon 09-01 Albumin [Mass/Vol] 3.5 g/dL Normal 3.5-5.0 [facility] Comment on above: Performed By: #### M G, URIC, RENAL #### [facility] [address] [place] [address] Dr. Hari Palmer Calcium [Mass/Vol] 8.7 mg/dL Normal 8.4-10.2 [facility] Comment on above: Performed By: #### M G, URIC, RENAL #### [facility] [address] [place] [address] Dr. Hari Palmer Chloride [Moles/Vol] 105 mmol/L Normal 98-107 [facility] Comment on above: Performed By: #### M G, URIC, RENAL #### [facility] [address] [place] [address] Dr. Hari Palmer CO2 [Moles/Vol] 21.1 mmol/L Critically low 22.0-30.0 [facility] Comment on above: Performed By: #### M G, URIC, RENAL #### [facility] [address] [place] [address] Dr. Hari Palmer Creatinine [Mass/Vol] 3.63 mg/dL Critically high 0.52-1.04 [facility] Comment on above: Performed By: #### M G, URIC, RENAL #### [facility] [address] [place] [address] Dr. Hari Palmer EGFR-AF BELARUSIAN 16 mL/min/1.73m2 Critically low >=60 [facility] Comment on above: Performed By: #### M G, URIC, RENAL #### [facility] [address] [place] [address] Dr. Hari Palmer EGFR-NON AF BELARUSIAN 14 mL/min/1.73m2 Critically low >=60 [facility] Comment on above: Performed By: #### M G, URIC, RENAL #### [facility] [address] [address] [address] Hari Palmer Glucose [Mass/Vol] 115 mg/dL Critically high 74-106 [facility] Comment on above: Performed By: #### M G, URIC, RENAL #### [facility] [address] [place] [address] Dr. Hari Palmer Phosphate [Mass/Vol] 4.6 mg/dL Critically high 2.5-4.5 [facility] Comment on above: Performed By: #### M G, URIC, RENAL #### [facility] Laboratory [address] [place] [address] Dr. Hari Palmer Potassium [Moles/Vol] 4.2 mmol/L Normal 3.4-5.0 [facility] Comment on above: Performed By: #### M G, URIC, RENAL #### [facility] Laboratory [address] [place] [address] Dr. Hari Palmer Sodium [Moles/Vol] 138 mmol/L Normal 137-145 [facility] Comment on above: Performed By: #### M G, URIC, RENAL #### [facility] [address] [place] [address] Dr. Hari Palmer Urea nitrogen [Mass/Vol] 50.0 mg/dL Critically high 7.0-17.0 [facility] Comment on above: Performed By: #### M G, URIC, RENAL #### [facility] [address] [place] [address] Dr. Hari Palmer UA RANDOM W/MICROSCOPICon BACTERIA SMALL Abnormal NONE SEEN [facility] Comment on above: Performed By: #### U AMIC #### [facility] [address] [place] [address] Dr. Hari Palmer Bilirubin Ql (U) Negative Normal NEGATIVE [facility] Comment on above: Performed By: #### U AMIC #### [facility] [address] [place] [address] Dr. Hari Palmer CAST NONE SEEN Normal NONE SEEN [facility] Comment on above: Performed By: #### U AMIC #### [facility] Laboratory [address] [address] [address] Hari Palmer Clarity (U) CLEAR Normal CLEAR [facility] Comment on above: Performed By: #### U AMIC #### [facility] [address] [address] [address] Hari Palmer Color (U) LT. YELLOW Normal YELLOW [facility] Comment on above: Performed By: #### U AMIC #### [facility] [address] [place] [address] Dr. Hari Palmer Crystals LM Nom (Urine sed) NONE SEEN Normal NONE SEEN [facility] Comment on above: Performed By: #### U AMIC #### [facility] [address] [place] [address] Dr. Hari Palmer Epithelial cells LM Ql (Urine sed) MODERATE Abnormal NONE SEEN /RARE [facility] Comment on above: Performed By: #### U AMIC #### [facility] [address] [place] [address] Dr. Hari Palmer Glucose Ql (U) Negative Normal NEGATIVE [facility] Comment on above: Performed By: #### U AMIC #### [facility] [address] [place] [address] Dr. Hari Palmer Hemoglobin Ql (U) TRACE-INTACT Abnormal NEGATIVE [facility] Comment on above: Performed By: #### U AMIC #### [facility] [address] [place] [address] Dr. Hari Palmer Ketones Ql (U) Negative Normal NEGATIVE [facility] Comment on above: Performed By: #### U AMIC #### [facility] [address] [place] [address] Dr. Hari Palmer LEUKOCYTES Negative Normal NEGATIVE [facility] Comment on above: Performed By: #### U AMIC #### [facility] [address] [place] [address] Dr. Hari Palmer MUCOUS NONE SEEN Normal NONE SEEN [facility] Comment on above: Performed By: #### U AMIC #### [facility] [address] [place] [address] Dr. Hari Palmer Nitrite Ql (U) Negative Normal NEGATIVE [facility] Comment on above: Performed By: #### U AMIC #### [facility] [address] [place] [address] Dr. aHri Palmer pH (U) 6.0 [pH] Normal 5-9 [facility] Comment on above: Performed By: #### U AMIC #### [facility] [address] [place] [address] Dr. Hari Palmer RBC 2-5 Abnormal 0-2 [facility] Comment on above: Performed By: #### U AMIC #### [facility] [address] [place] [address] Dr. Hari Palmer SPEC GRAVITY 1.010 Normal 1.005-<=1.02 5 [facility] Comment on above: Performed By: #### U AMIC #### [facility] [address] [place] [address] Dr. Hari Palmer UA PROTEIN Negative Normal NEGATIVE/ TRACE [facility] Comment on above: Performed By: #### U AMIC #### [facility] [address] [place] [address] Dr. Hari Palmer Urobilinogen Qn (U) 0.2 {Janice'U}/dL Normal 0.2 - 1. 0 [facility] Comment on above: Performed By: #### U AMIC #### [facility] [address] [place] [address] Dr. Hari Palmer WBC 2-5 Abnormal NONE SEEN [facility] Comment on above: Performed By: #### U AMIC #### [facility] [address] [place] [address] Dr. Hari Palmer URIC ACID SERUMon 09-01-2021 Urate [Mass/Vol] 4.9 mg/dL Normal 2.5-6.2 [facility] Comment on above: Performed By: #### U AMIC #### [facility] [address] [place] [address] Dr. Hari Palmer URINE T PROTEIN CREAT RATIOo n 09-01-2021 Protein (U) [Mass/Vol] 22.2 mg/dL Critically high <=12.0 [facility] Comment on above: Performed By: #### M Edy, URIC, RENAL #### [facility] [address] [place] [address] Dr. Hari Palmer UR PROT CREAT RAT 0.47 Normal [facility] Comment on above: Performed By: #### M Edy, URIC, RENAL #### [facility] [address] [place] [address] Dr. Hari Palmer URINE CREAT 46.89 mg/dL Normal 20.00-300.00 [facility] Comment on above: Performed By: #### M Edy, URIC, RENAL #### [facility] [address] [place] [address] Dr. Hari Palmer VITAMIN D 25 OHon 09-01-2021 VIT D 25-OH 40.5 ng/mL Normal [facility] Comment on above: Performed By: #### M Edy URIC, RENAL #### [facility] [address] [place] [address] Dr. Hari Palmer VIT D RANGES SEE BELOW Normal [facility] Comment on above: Result Comment: <20 ng/mL Vit D deficient 20 - <30 ng/mL Vit D insufficient 30 - 100 ng/mL Vit D sufficient >100 ng/mL Potential Toxicity Performed By: #### M Edy, URIC, RENAL #### [facility] [address] [place] [address] Dr. Hari Palmer CNOVon 03-30-2021 CNOV Office Visit (NEPHMN ) ----- MANDEEP PURI ([id number]) 1975 F Date Time Provider Department 03/30/21 9:20 AM PERRI BARRETT NEPHCHET During your visit today, we recorded the following information about you: Temperature Pulse Blood pressure Weight 98.2 degrees 75/minute 122/77 93 kg Height 1.549 m Perri Barrett MD 03/30/2021 10:25 AM Signed Mrs. 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 (more content not included)... Normal [facility] Urinalysison 03-30-2021 Bilirubin, Urine Negative Normal Negative [facility] Comment on above: Performed By: #### U A #### [facility] [employer] [address], [place] [address] Clarity (U) Clear Normal Clear [facility] Comment on above: Performed By: #### U A #### [facility] [employer] [address], [place] [address] Color (U) Colorless Critically abnormal Yellow [facility] Comment on above: Performed By: #### U A #### [facility] [employer] [facility], [place] [address] Comments SEE COMMENT Normal [facility] Comment on above: Result Comment: Micr oscopic not warranted Performed By: #### U A #### [facility] [employer] [address] [place], [place] [address] Glucose Ql (U) Trace Critically abnormal Negative [facility] Comment on above: Performed By: #### U A #### [facility] [address], [place] [address] Hemoglobin/Blood,Ur Negative Normal Negative [facility] Comment on above: Performed By: #### U A #### [facility] [address] [address] Ketones Ql (U) Negative Normal Negative [facility] Comment on above: Performed By: #### U A #### [address] [place] [address] Leukest Negative Normal Negative [facility] Comment on above: Performed By: #### U A #### [address] [place] [address] Nitrite Ql (U) Negative Normal Negative [facility] Comment on above: Performed By: #### U A #### [address] [place] [address] pH (U) 6.5 [pH] Normal 5.0-8.0 [facility] Comment on above: Performed By: #### U A #### [address] [place] [address] Protein, Urine Negative Normal Negative [facility] Comment on above: Performed By: #### U A #### [address] [id number] Specific [place], [place] 1.008 Normal 1.005-1.030 [facility] Comment on above: Performed By: #### U A #### [address] [place], [place] [address] Urine Codi Comment SEE COMMENT Normal [facility] Comment on above: Result Comment: N/A Performed By: #### U A #### [address] [place] [address] Urobilinogen (U) [Mass/Vol] Negative Normal Negative [facility] Comment on above: Performed By: #### U A #### [facility] [address] [place], [place] [address] Coding Summary.on 04-21-2020 Coding Summary. CODING DATE: 020 FINAL [facility] STATUS: Home (Routine DC) PAYOR: Medical Hunt[place] ADMIT DX: REASON FOR VISIT DX: Z20.828 [...] CphT Date Saved: 04/21/2020 05:17 pm Normal [facility] Physician Orderon 04-21-2020 Physician Order [id number] Normal [facility] Marci 04-12-2020 ALT [Catalytic activity/Vol] 14 U/L Normal 7 - 45 [facility] Comment on above: Result Comment: Kelsea ents treated with Sulfasalazine may generate falsely decreased results for ALT. Performed By: #### A LT #### [facility] [address] [place] [address] Ronald 04-12-2020 AST [Catalytic activity/Vol] 16 U/L Normal 9 - 39 [facility] Comment on above: Performed By: #### A ST #### [facility] [address] [place] [address] CREATININEon 04-12-2020 Creatinine [Mass/Vol] 2.83 mg/dL High 0.50 - 1.05 [facility] Comment on above: Performed By: #### C REAT #### [facility] [address] [place] [address] Creatinine [Mass/Vol] 18 mL/min/1.73m2 Abnormal >60 [facility] Comment on above: Performed By: #### C REAT #### [facility] [address] [place] [address] Creatinine [Mass/Vol] 22 mL/min/1.73m2 Abnormal >60 [facility] Comment on above: Result Comment: CALC ULATIONS OF ESTIMATED GFR ARE PERFORMED USING THE MDRD STUDY EQUATION FOR THE IDMS-TRACEABLE CREATININE METHODS. CLIN CHEM 2007;53:766-72 Performed By: #### C REAT #### [facility] [address] [place] [address] URIC ACIDon 04-12-2020 Urate [Mass/Vol] 5.2 mg/dL Normal 2.3 - 6.7 [facility] Comment on above: Result Comment: Beti puncture immediately after or during the administration of Metamizole may lead to falsely low results. Testing should be performed immediately prior to Metamizole dosing. Performed By: #### U DICK #### [facility] [address] [place] [address] URIC ACIDon 02-11-2020 Urate [Mass/Vol] 8.2 mg/dL High 2.3 - 6.7 [facility] Comment on above: Result Comment: Beti puncture immediately after or during the administration of Metamizole may lead to falsely low results. Testing should be performed immediately prior to Metamizole dosing. Performed By: #### U DICK #### [facility] [address] [place] [address] Cult,Urineon 08-04-2019 Cult,Urine Specimen Description .CLEAN CATCH URINE Special Requests NOT REPORTED Culture ESCHERICHIA COLI >[id number] CFU/ML Report Status FINAL 08/04/2019 SUSCEPTIBILITY Organism [...] Trimethoprim/Sulfa <=20 SUSCEPTIBLE Piperacillin/Tazobactam <=[address] [facility] Comment on above: Performed By: #### D CITLALY, LIP, CMPX, TROPI, BNP, CDP, PT #### [facility] [address] [place] [address] Lieutenant Firefighter: Sami Dominguez MD Brain Natri. Peptideon 08-02 Natriuretic peptide B (Bld) [Mass/Vol] 152 pg/mL Normal <300 [facility] Comment on above: Result Comment: Pro- BNP results cannot be compared to BNP results. Performed By: #### D CITLALY, LIP, CMPX, TROPI, BNP, CDP, PT #### [facility] [address] [place] [address] Lieutenant Firefighter: Sami Dominguez MD Natriuretic peptide B (Bld) [Mass/Vol] Pro-BNP Reference Range: Normal [facility] Comment on above: Result Comment: Rule Out: <300 Parra Zone: Age <50 300-450 Age 50-75 300-900 Age >75 300-1800 Usually represents mild to moderate HF but other cardiopulmonary causes cannot be ruled out. Rule In: Age <50 >450 Age 50-75 >900 Age >75 >1800 Performed By: #### D CITLALY, LIP, CMPX, TROPI, BNP, CDP, PT #### [facility] [address] [place] [address] Lieutenant Firefighter: Sami Dominguez MD Brain Natriuretic Peptideon 08-02-2019 Natriuretic peptide B (Bld) [Mass/Vol] 152 pg/mL <300 [place] Comment on above: Pro-BNP results eric ot be compared to BNP results. Natriuretic peptide B (Bld) [Mass/Vol] Pro-BNP Reference Range: [facility] [place] Comment on above: Rule Out: <300 Parra Zone: Age <50 300-450 Age 50-75 300-900 Age >75 300-1800 Usually represents mild to moderate HF but other cardiopulmonary causes cannot be ruled out. Rule In: Age <50 >450 Age 50-75 >900 Age >75 >1800 CBC Auto Differentialon 07-07 Basophils (Bld) [#/Vol] 0.00 10*3/uL [place] Basophils/100 WBC (Bld) 0 % 0 - 2 % [place] Differential Type NOT REPORTED [place] Eosinophils (Bld) [#/Vol] 0.08 10*3/uL [place] Eosinophils/100 WBC (Bld) 1 % 1 - 4 % [place] Erythrocyte distribution width (RBC) [Ratio] 13.2 % 11.8 - 14.4 % [place] Hematocrit (Bld) [Volume fraction] 33.7 % Low 36.3 - 47.1 % [place] Hemoglobin (Bld) [Mass/Vol] 10.7 g/dL Low 11.9 - 15.1 g/dL [place] Immature granulocytes (Bld) [#/Vol] 0 % 0 [place] Immature granulocytes (Bld) [#/Vol] 0.00 10*3/uL [place] Interpretation and review of laboratory results Abnormal [place] Lymphocytes (Bld) [#/Vol] 0.90 10*3/uL Low [place] Lymphocytes/100 WBC (Bld) 12 % Low 24 - 43 % [place] MCH (RBC) [Entitic mass] 30.2 pg 25.2 - 33.5 pg [place] MCHC (RBC) [Mass/Vol] 31.8 g/dL 28.4 - 34.8 g/dL [place] MCV (RBC) [Entitic vol] 95.2 fL 82.6 - 102.9 fL [place] Monocytes (Bld) [#/Vol] 0.00 10*3/uL [place] Monocytes/100 WBC (Bld) 0 % Low 3 - 12 % [place] Morphology Geovany (Bld) [Interp] Normal [place] Platelet mean volume (Bld) [Entitic vol] 8.6 fL 8.1 - 13.5 fL [place] Platelets (Bld) [#/Vol] NOT REPORTED [place] Platelets (Bld) [#/Vol] 335 10*3/uL [place] RBC (Bld) [#/Vol] 3.54 10*6/uL Low 3.95 - 5.1 1 m/uL [place] RBC morphology finding Nom (Bld) NOT REPORTED [place] Segmented neutrophils/100 WBC (Bld) 87 % High 36 - 65 % [place] Segs Absolute 6.52 [place] WBC (Bld) [#/Vol] 7.5 10*3/uL [place] WBC (Bld) [#/Vol] 0.0 10*3/uL 0.0 per 10 0 WBC [place] WBC Morphology NOT REPORTED [place] CBC with Diffon 08-02-2019 Abs. Basophil 0.00 k/uL Normal 0.0-0.2 [facility] Comment on above: Performed By: #### D CITLALY, LIP, CMPX, TROPI, BNP, CDP, PT #### [address] [place] [address] Lieutenant Firefighter: Sami Dominguez MD Abs.Imm.Granulocyte 0.00 k/uL Normal 0.00-0.30 [facility] Comment on above: Performed By: #### D CITLALY, LIP, CMPX, TROPI, BNP, CDP, PT #### [facility] [address] [place] [place] [address] Lieutenant Firefighter: Sami Dominguez MD Abs.Neutrophil (Seg) 6.52 k/uL Normal 1.50-8.10 [facility] Comment on above: Performed By: #### D CITLALY, LIP, CMPX, TROPI, BNP, CDP, PT #### [facility] [address] [place] [address] Lieutenant Firefighter: Sami Dominguez MD Basophils/100 WBC (Bld) 0 % Normal 0-2 [facility] Comment on above: Performed By: #### D CITLALY, LIP, CMPX, TROPI, BNP, CDP, PT #### [facility] [address] [place] [address] Lieutenant Firefighter: Sami Dominguez MD Eosinophils (Bld) [#/Vol] 0.08 10*3/uL Normal 0.00-0.44 [facility] Comment on above: Performed By: #### D CITLALY, LIP, CMPX, TROPI, BNP, CDP, PT #### [facility] [address] [place] [address] Lieutenant Firefighter: Sami Dominguez MD Eosinophils/100 WBC (Bld) 1 % Normal 1-4 [facility] Comment on above: Performed By: #### D CITLALY, LIP, CMPX, TROPI, BNP, CDP, PT #### [facility] [address] [place] [address] Lieutenant Firefighter: Sami Dominguez MD Immature granulocytes (Bld) [#/Vol] 0 % Normal 0 [facility] Comment on above: Performed By: #### D CITLALY, LIP, CMPX, TROPI, BNP, CDP, PT #### [facility] [address] [place] [address] Lieutenant Firefighter: Sami Dominguez MD Lymphocytes (Bld) [#/Vol] 0.90 10*3/uL Low 1.10-3.70 [facility] Comment on above: Performed By: #### D CITLALY, LIP, CMPX, TROPI, BNP, CDP, PT #### [facility] [address] [place] [address] Lieutenant Firefighter: Sami Dominguez MD Lymphocytes/100 WBC (Bld) 12 % Low 24-43 [facility] Comment on above: Performed By: #### D CITLALY, LIP, CMPX, TROPI, BNP, CDP, PT #### [facility] [address] [place], [facility]83 Lieutenant Firefighter: Sami Dominguez MD Monocytes (Bld) [#/Vol] 0.00 10*3/uL Low 0.10-1.20 [facility] Comment on above: Performed By: #### D CITLALY, LIP, CMPX, TROPI, BNP, CDP, PT #### [facility] [address] [place], [facility]83 Lieutenant Firefighter: Sami Dominguez MD Monocytes/100 WBC (Bld) 0 % Low 3-12 [facility] Comment on above: Performed By: #### D CITLALY, LIP, CMPX, TROPI, BNP, CDP, PT #### [facility] [address] [place], [facility]83 Lieutenant Firefighter: Sami Dominguez MD Morphology Geovany (Bld) [Interp] Normal Normal [facility] Comment on above: Performed By: #### D CITLALY, LIP, CMPX, TROPI, BNP, CDP, PT #### [facility] [address] [place], [place] [address] Lieutenant Firefighter: Sami Dominguez MD Neutrophil (Seg) 87 % High 36-65 [facility] Comment on above: Performed By: #### D CITLALY, LIP, CMPX, TROPI, BNP, CDP, PT #### [facility] [address] [place], [facility]83 Lieutenant Firefighter: Sami Dominguez MD Erythrocyte distribution width (RBC) [Ratio] 13.2 % Normal 11.8-14.4 [facility] Comment on above: Performed By: #### D CITLALY, LIP, CMPX, TROPI, BNP, CDP, PT #### [facility] [address] [place], [place] [id number] Lieutenant Firefighter: Sami Dominguez MD Hematocrit (Bld) [Volume fraction] 33.7 % Low 36.3-47.1 [facility] Comment on above: Performed By: #### D CITLALY, LIP, CMPX, TROPI, BNP, CDP, PT #### [facility] [address] [place] [address] Lieutenant Firefighter: Sami Dominguez MD Hemoglobin (Bld) [Mass/Vol] 10.7 g/dL Low 11.9-15.1 [facility] Comment on above: Performed By: #### D CITLALY, LIP, CMPX, TROPI, BNP, CDP, PT #### [facility] [address] [place] [address] Lieutenant Firefighter: Sami Dominguez MD MCH (RBC) [Entitic mass] 30.2 pg Normal 25.2-33.5 [facility] Comment on above: Performed By: #### D CITLALY, LIP, CMPX, TROPI, BNP, CDP, PT #### [address] [place] [address] Lieutenant Firefighter: Sami Dominguez MD MCHC (RBC) [Mass/Vol] 31.8 g/dL Normal 28.4-34.8 [facility] Comment on above: Performed By: #### D CITLALY, LIP, CMPX, TROPI, BNP, CDP, PT #### [address] [place] [address] Lieutenant Firefighter: Sami Dominguez MD MCV (RBC) [Entitic vol] 95.2 fL Normal 82.6-102.9 [facility] Comment on above: Performed By: #### D CITLALY, LIP, CMPX, TROPI, BNP, CDP, PT #### [facility] [address] [place] [address] Lieutenant Firefighter: Sami Dominguez MD NRBC Automated 0.0 per [address] [facility] Comment on above: Performed By: #### D CITLALY, LIP, CMPX, TROPI, BNP, CDP, PT #### [address] [place], [facility] Lieutenant Firefighter: Sami Dominguez MD Platelet mean volume (Bld) [Entitic vol] 8.6 fL Normal 8.1-13.5 [facility] Comment on above: Performed By: #### D CITLALY, LIP, CMPX, TROPI, BNP, CDP, PT #### [facility] [address] [place], [facility]83 Lieutenant Firefighter: Sami Dominguez MD Platelets (Bld) [#/Vol] 335 10*3/uL Normal 138-453 [facility] Comment on above: Performed By: #### D CITLALY, LIP, CMPX, TROPI, BNP, CDP, PT #### [facility] [address] [place], [facility]83 Lieutenant Firefighter: Sami Dominguez MD RBC (Bld) [#/Vol] 3.54 10*6/uL Low 3.95-5.11 [facility] Comment on above: Performed By: #### D CITLALY, LIP, CMPX, TROPI, BNP, CDP, PT #### [address] [place], [place] [address] Lieutenant Firefighter: Sami Dominguez MD WBC (Bld) [#/Vol] 7.5 10*3/uL Normal 3.5-11.3 [facility] Comment on above: Performed By: #### D CITLALY, LIP, CMPX, TROPI, BNP, CDP, PT #### [address] [place], [facility] Lieutenant Firefighter: Sami Dominguez MD Auto Diff Performed NOT REPORTED Normal [facility] Comment on above: Performed By: #### D CITLALY, LIP, CMPX, TROPI, BNP, CDP, PT #### [facility] [address] [address] [place], [place] [id number] Lieutenant Firefighter: Sami Dominguez MD Platelets (Bld) [#/Vol] NOT REPORTED Normal [facility] Comment on above: Performed By: #### D CITLALY, LIP, CMPX, TROPI, BNP, CDP, PT #### [facility] [address] [place] [address] Lieutenant Firefighter: Sami Dominguez MD RBC morphology finding Nom (Bld) NOT REPORTED Normal [facility] Comment on above: Performed By: #### D CITLALY, LIP, CMPX, TROPI, BNP, CDP, PT #### [facility] [address] [place] [address] Lieutenant Firefighter: Sami Dominguez MD WBC Morphology NOT REPORTED Normal [facility] Comment on above: Performed By: #### D CITLALY, LIP, CMPX, TROPI, BNP, CDP, PT #### [facility] [address] [place] [address] Lieutenant Firefighter: Sami Dominguez MD CTA CHEST ABDOMEN PELVIS [...] Yunier Yang MD 08/02/[address] [facility] Moshe, [facility] Incoming Radiant Results From [employer] - 08/02/2019 1:21 PM EDT EXAMINATION: CTA [...] recommended. Reference: J Am Danika Radiol 2013;10:675-681 [place], [place] EXAMINATION: CTA OF THE CHEST, ABDOMEN [...] and caliber without aneurysmal dilatation or dissection. [place] No evidence for aneurysmal dilatation or dissection of the aorta or its branches. Findings most compatible with polycystic kidney disease. Subtle inflammation adjacent to the descending colon is suggestive of subtle colitis. No perforation or abscess formation. No free intraperitoneal air or fluid. 4.1 cm benign appearing ovarian cyst No follow-up imaging is recommended. Reference: J Am Danika Radiol 2013;10:675-681 [place], [place] Comp Metabolic Pr/rfx MGon 1 (cont.) Normal [facility] Comment on above: Result Comment: Aver age GFR for 40-49 years old: 99 mL/min/1.73sq m Chronic Kidney Disease: <60 mL/min/1.73sq m Kidney failure: <15 mL/min/1.73sq m eGFR calculated using average adult body mass. Additional eGFR calculator available at: http://www.[employer]BeGo/multiple_crcl_2012.htm Performed By: #### D CITLALY, LIP, CMPX, TROPI, BNP, CDP, PT #### [facility] [address] [place] [address] Lieutenant Firefighter: Sami Dominguez MD Albumin [Mass/Vol] 4.4 g/dL Normal 3.5-5.2 [facility] Comment on above: Performed By: #### D CITLALY, LIP, CMPX, TROPI, BNP, CDP, PT #### [facility] [address] [place] [address] Lieutenant Firefighter: Sami Dominguez MD Albumin/Globulin [Mass ratio] 1.0 {ratio} Normal 1.0-2.5 [facility] Comment on above: Performed By: #### D CITLALY, LIP, CMPX, TROPI, BNP, CDP, PT #### [facility] [address] [place] [address] Lieutenant Firefighter: Sami Dominguez MD Alkaline Phos 98 U/L Normal 35-104 [facility] Comment on above: Performed By: #### D CITLALY, LIP, CMPX, TROPI, BNP, CDP, PT #### [facility] [address] [place], [place] [id number] Lieutenant Firefighter: Sami Dominguez MD ALT [Catalytic activity/Vol] 16 U/L Normal 5-33 [facility] Comment on above: Performed By: #### D CITLALY, LIP, CMPX, TROPI, BNP, CDP, PT #### [address] [place] [address] Lieutenant Firefighter: Sami Dominguez MD Anion gap [Moles/Vol] 18 mmol/L High 9-17 [facility] Comment on above: Performed By: #### D CITLALY, LIP, CMPX, TROPI, BNP, CDP, PT #### [address] [place] [address] Lieutenant Firefighter: Sami Dominguez MD AST [Catalytic activity/Vol] 18 U/L Normal <32 [facility] Comment on above: Performed By: #### D CITLALY, LIP, CMPX, TROPI, BNP, CDP, PT #### [facility] [address] [place] [address] Lieutenant Firefighter: Sami Dominguez MD Bilirubin Ql (U) 0.31 mg/dL Normal 0.3-1.2 [facility] Comment on above: Performed By: #### D CITLALY, LIP, CMPX, TROPI, BNP, CDP, PT #### [facility] [address] [place] [address] Lieutenant Firefighter: Sami Dominguez MD BUN/CRE Ratio 13 Normal 9-20 [facility] Comment on above: Performed By: #### D CITLALY, LIP, CMPX, TROPI, BNP, CDP, PT #### [facility] [address] [place] [address] Lieutenant Firefighter: Sami Dominguez MD Calcium [Mass/Vol] 9.7 mg/dL Normal 8.6-10.4 [facility] Comment on above: Performed By: #### D CITLALY, LIP, CMPX, TROPI, BNP, CDP, PT #### [facility] [address] [place], [place] [id number] Lieutenant Firefighter: Sami Dominguez MD Chloride [Moles/Vol] 95 mmol/L Low 98-107 [facility] Comment on above: Performed By: #### D CITLALY, LIP, CMPX, TROPI, BNP, CDP, PT #### [facility] [address] [place], [place] [id number] Lieutenant Firefighter: Sami Dominguez MD CO2 [Moles/Vol] 18 mmol/L Low 20-31 [facility] Comment on above: Performed By: #### D CITLALY, LIP, CMPX, TROPI, BNP, CDP, PT #### [facility] [address] [place], [place] [id number] Lieutenant Firefighter: Sami Dominguez MD Creatinine [Mass/Vol] 3.07 mg/dL High 0.50-0.90 [facility] Comment on above: Performed By: #### D CITLALY, LIP, CMPX, TROPI, BNP, CDP, PT #### [facility] [address] [place] [address] Lieutenant Firefighter: Sami Dominguez MD GFR, Amer 20 mL/min Low >60 [facility] Comment on above: Performed By: #### D CITLALY, LIP, CMPX, TROPI, BNP, CDP, PT #### [facility] [address] [place], [place] [id number] Lieutenant Firefighter: Sami Dominguez MD GFR,non Amer 17 mL/min Low >60 [facility] Comment on above: Performed By: #### D CITLALY, LIP, CMPX, TROPI, BNP, CDP, PT #### [facility] [address] [place] [address] Lieutenant Firefighter: Sami Dominguez MD Glucose [Mass/Vol] 89 mg/dL Normal 70-99 [facility] Comment on above: Performed By: #### D CITLALY, LIP, CMPX, TROPI, BNP, CDP, PT #### [facility] [address] [place] [address] Lieutenant Firefighter: Sami Dominguez MD Potassium [Moles/Vol] 3.9 mmol/L Normal 3.7-5.3 [facility] Comment on above: Performed By: #### D CITLALY, LIP, CMPX, TROPI, BNP, CDP, PT #### [facility] [address] [place] [address] Lieutenant Firefighter: Sami Dominguez MD Protein [Mass/Vol] 8.8 g/dL High 6.4-8.3 [facility] Comment on above: Performed By: #### D CITLALY, LIP, CMPX, TROPI, BNP, CDP, PT #### [facility] [address] [place] [address] Lieutenant Firefighter: Sami Dominguez MD Sodium [Moles/Vol] 131 mmol/L Low 135-144 [facility] Comment on above: Performed By: #### D CITLALY, LIP, CMPX, TROPI, BNP, CDP, PT #### [facility] [address] [place] [address] Lieutenant Firefighter: Sami Dominguez MD Staging: Normal [facility] Comment on above: Result Comment: Stag e 1: Some kidney damage normal GFR Stage 2: Mild kidney damage GFR 60-89 Stage 3: Moderate kidney damage GFR 30-59 Stage 4: Severe kidney damage GFR 15-29 Stage 5: Severe kidney damage GFR <15 ESRD - chronic treatment by dialysis or transplant Performed By: #### D CITLALY, LIP, CMPX, TROPI, BNP, CDP, PT #### [facility] [address] [place] [address] Lieutenant Firefighter: Sami Dominguez MD Urea nitrogen [Mass/Vol] 39 mg/dL High 6-20 [facility] Comment on above: Performed By: #### D CITLALY, LIP, CMPX, TROPI, BNP, CDP, PT #### [facility] [address] [place] [address] Lieutenant Firefighter: Sami Dominguez MD Comprehensive Metabolic Pane l w/ Reflex to on 08-02-2019 Albumin [Mass/Vol] 4.4 g/dL 3.5 - 5.2 g/dL [place] Albumin/Globulin [Mass ratio] 1.0 {ratio} [place] ALP [Catalytic activity/Vol] 98 U/L 35 - 104 U/L [place] ALT [Catalytic activity/Vol] 16 U/L 5 - 33 U/L [place] Anion gap [Moles/Vol] 18 mmol/L High 9 - 17 mmol/L [place] AST [Catalytic activity/Vol] 18 U/L <32 [place] Bilirubin Ql (U) 0.31 mg/dL 0.3 - 1.2 mg/dL [place] Bun/Cre Ratio 13 [place] Calcium [Mass/Vol] 9.7 mg/dL 8.6 - 10. 4 mg/dL [place] Chloride [Moles/Vol] 95 mmol/L Low 98 - 10 7 mmol/L [place] CO2 [Moles/Vol] 18 mmol/L Low 20 - 31 mmol/L [place] Creatinine [Mass/Vol] 3.07 mg/dL High 0.5 - 0.9 mg/dL [place] GFR 20 mL/min Low >60 [place] GFR Non- 17 mL/min Low >60 [place] Glucose [Mass/Vol] 89 mg/dL 70 - 99 mg/dL [place] Interpretation and review of laboratory results Abnormal [place] Potassium [Moles/Vol] 3.9 mmol/L 3.7 - 5.3 mmol/L [place] Protein [Mass/Vol] 8.8 g/dL High 6.4 - 8.3 g/dL [place] Sodium [Moles/Vol] 131 mmol/L Low 135 - 144 mmol/L [place] Urea nitrogen [Mass/Vol] 39 mg/dL High 6 - 20 mg/dL [place] D-Dimer Teston 08-02-2019 D-Dimer Test 1.15 mg/L FEU High 0.19-0.50 [facility] Comment on above: Result Comment: Elevated [...] LIP, CMPX, TROPI, BNP, CDP, PT #### [facility] [address] [place] [address] Lieutenant Firefighter: Sami Dominguez MD D-Dimer, Quantitativeon 07-07 D-Dimer, Quant 1.15 [place] Comment on above: Elevated levels of [...] Interpretation and review of laboratory results Abnormal [place] Lactate, Sepsison 08-02-2019 Lactic Acid, Sepsis 3.6 mmol/L High 0.5-1.9 [facility] Comment on above: Performed By: #### L ACDS #### [facility] [address] [place] [address] Lieutenant Firefighter: Sami Dominguez MD Lactic Acid,Sep Wbld NOT REPORTED Normal 0.5-1.9 [facility] Comment on above: Performed By: #### L ACDS #### [facility] [address] [place] [address] Lieutenant Firefighter: Sami Dominguez MD Interpretation and review of laboratory results Abnormal [place] Lactic Acid, Sepsis 3.6 mmol/L High 0.5 - 1. 9 mmol/L [place] Lactic Acid, Sepsis, Whole Blood NOT REPORTED 0.5 - 1.9 mmol/L [place] Lactic Acidon 08-02-2019 Lactate [Moles/Vol] 1.0 mmol/L Normal 0.5-2.2 [facility] Comment on above: Performed By: #### D CITLALY, LIP, CMPX, TROPI, BNP, CDP, PT #### [facility] [address] [place] [address] Lieutenant Firefighter: Sami Dominguez MD Lactate [Moles/Vol] NOT REPORTED Normal 0.7-2.1 [facility] Comment on above: Performed By: #### D CITLALY, LIP, CMPX, TROPI, BNP, CDP, PT #### [facility] [address] [place] [address] Lieutenant Firefighter: Sami Dominguez MD Lactic Acid, Plasmaon 2018 Lactate [Moles/Vol] 1 mmol/L 0.5 - 2. 2 mmol/L [place] Lactic Acid, Whole Blood NOT REPORTED 0.7 - 2.1 mmol/L [place] Lipaseon 08-02-2019 Lipase [Catalytic activity/Vol] 38 U/L Normal 13-60 [facility] Comment on above: Performed By: #### D CITLALY, LIP, CMPX, TROPI, BNP, CDP, PT #### [facility] [address] [place] [address] Lieutenant Firefighter: Sami Dominguez MD Lipase [Catalytic activity/Vol] 38 U/L 13 - 60 U/L [place] Metabolic Panelon 08-02-2019 GFR/1.73 sq M predicted among non-blacks MDRD (S/P/Bld) [Vol rate/Area] [place] Comment on above: Stage 1: Some [...] body mass. Additional eGFR calculator available at: http://www.Zjdg.cn/multiple_crcl_2012.htm Microscopic Urinalysison Amorphous, UA NOT REPORTED None [place] Bacteria, UA 1+ Abnormal None [place] Casts UA NOT REPORTED /LPF [place] Crystals UA NOT REPORTED None /HPF [place] Epithelial Cells UA 2 TO 5 [place] Interpretation and review of laboratory results Abnormal [place] Mucus, UA NOT REPORTED None [place] Other Observations UA NOT REPORTED NOT REQ. M [place] RBC (U) [#/Vol] None [place] Renal Epithelial, Urine NOT REPORTED 0 /HPF [place] Trichomonas, UA NOT REPORTED None [place] WBC, UA 50 TO 100 [place] Yeast, UA NOT REPORTED None [place] PTon 08-02-2019 INR Coag (PPP) [Relative time] 1.0 {INR} Normal 0.9-1.2 [facility] Comment on above: Performed By: #### D CITLALY, LIP, CMPX, TROPI, BNP, CDP, PT #### [facility] [address] [place] [address] Lieutenant Firefighter: Sami Dominguez MD PT Coag (PPP) [Time] 10.0 s Normal 9.7-12.2 [facility] Comment on above: Performed By: #### D CITLALY, LIP, CMPX, TROPI, BNP, CDP, PT #### [facility] [address] [place] [id number] Lieutenant Firefighter: Sami Dominguez MD Protime-INRon 08-02-2019 INR Coag (PPP) [Relative time] 1.0 {INR} [place], [place] PT Coag (PPP) [Time] 10 s [place] Troponinon 08-02-2019 Troponin I.cardiac [Mass/Vol] ng/mL Normal <0.03 [facility] Comment on above: Result Comment: Trop onin T results cannot be compared to Troponin-I results. Performed By: #### D CITLALY, LIP, CMPX, TROPI, BNP, CDP, PT #### [facility] [address] [place] [address] Lieutenant Firefighter: Sami Dominguez MD Troponin I.cardiac [Mass/Vol] Normal [facility] Comment on above: Result Comment: Refe [...] LIP, CMPX, TROPI, BNP, CDP, PT #### [facility] [address] [place] [address] Lieutenant Firefighter: Sami Dominguez MD Troponin I.cardiac [Mass/Vol] NOT REPORTED Normal 0-14 [facility] Comment on above: Performed By: #### D CITLALY, LIP, CMPX, TROPI, BNP, CDP, PT #### [facility] [address] [place] [address] Lieutenant Firefighter: Sami Dominguez MD Troponin I.cardiac [Mass/Vol] [place] Comment on above: Reference Range: <0.03 [...] diagnosis. Troponin T.cardiac [Mass/Vol] ug/L <0.03 ng/mL [place] Comment on above: Troponin T results c annot be compared to Troponin-I results. Troponin, High Sensitivity NOT REPORTED 0 - 14 ng/L [place] Troponin I.cardiac [Mass/Vol] ng/mL Normal <0.03 [facility] Comment on above: Result Comment: Trop onin T results cannot be compared to Troponin-I results. Performed By: #### D CITLALY, LIP, CMPX, TROPI, BNP, CDP, PT #### [address] [place] [address] Lieutenant Firefighter: Sami Dominguez MD Troponin I.cardiac [Mass/Vol] Normal [facility] Comment on above: Result Comment: Refe [...] LIP, CMPX, TROPI, BNP, CDP, PT #### [facility] [address] [place] [address] Lieutenant Firefighter: Sami Dominguez MD Troponin I.cardiac [Mass/Vol] NOT REPORTED Normal 0-14 [facility] Comment on above: Performed By: #### D CITLALY, LIP, CMPX, TROPI, BNP, CDP, PT #### [facility] [address] [place] [address] Lieutenant Firefighter: Sami Dominguez MD Troponin I.cardiac [Mass/Vol] [place] Comment on above: Reference Range: <0.03 [...] diagnosis. Troponin T.cardiac [Mass/Vol] ug/L <0.03 ng/mL [place] Comment on above: Troponin T results c annot be compared to Troponin-I results. Troponin, High Sensitivity NOT REPORTED 0 - 14 ng/L [place] UA w/Reflex Cultureon 2018 Acetoacetic Acid,Ur Negative Normal NEG [facility] Comment on above: Performed By: #### D CITLALY, LIP, CMPX, TROPI, BNP, CDP, PT #### [facility] [address] [place] [address] Lieutenant Firefighter: Sami Dominguez MD Bilirubin, SemiQt,Ur Negative Normal NEG [facility] Comment on above: Performed By: #### D CITLALY, LIP, CMPX, TROPI, BNP, CDP, PT #### [facility] [address] [place] [address] Lieutenant Firefighter: Sami Dominguez MD Color (U) YELLOW Normal YEL [facility] Comment on above: Performed By: #### D CITLALY, LIP, CMPX, TROPI, BNP, CDP, PT #### [facility] [address] [place] [address] Lieutenant Firefighter: Sami Dominguez MD Glucose Ql (U) Negative Normal NEG [facility] Comment on above: Performed By: #### D CITLALY, LIP, CMPX, TROPI, BNP, CDP, PT #### [facility] [address] [place] [address] Lieutenant Firefighter: Sami Dominguez MD Hemoglobin, Ur 1+ Abnormal NEG [facility] Comment on above: Performed By: #### D CITLALY, LIP, CMPX, TROPI, BNP, CDP, PT #### [address] [place] [address] Lieutenant Firefighter: Sami Dominguez MD Leukocyte esterase Test strip Ql (U) MODERATE Abnormal NEG [facility] Comment on above: Performed By: #### D CITLALY, LIP, CMPX, TROPI, BNP, CDP, PT #### [address] [place] [address] Lieutenant Firefighter: Sami Dominguez MD Nitrite,Ur Negative Normal NEG [facility] Comment on above: Performed By: #### D CITLALY, LIP, CMPX, TROPI, BNP, CDP, PT #### [address] [place] [address] Lieutenant Firefighter: Sami Dominguez MD pH (U) 6.0 [pH] Normal 5.0-9.0 [facility] Comment on above: Performed By: #### D CITLALY, LIP, CMPX, TROPI, BNP, CDP, PT #### [facility] [address] [place] [address] [place] [address] Lieutenant Firefighter: Sami Dominguez MD Protein Ql (U) TRACE Abnormal NEG [facility] Comment on above: Performed By: #### D CITLALY, LIP, CMPX, TROPI, BNP, CDP, PT #### [address] [place] [address] Lieutenant Firefighter: Sami Dominguez MD Specific gravity (U) [Rel density] 1.010 Normal 1.010-1.020 [facility] Comment on above: Performed By: #### D CITLALY, LIP, CMPX, TROPI, BNP, CDP, PT #### [facility] [address] [place] [address] Lieutenant Firefighter: Sami Dominguez MD Turbidity CLEAR Normal CLEAR [facility] Comment on above: Performed By: #### D CITLALY, LIP, CMPX, TROPI, BNP, CDP, PT #### [facility] [address] [place] [address] Lieutenant Firefighter: Sami Dominguez MD Urobilinogen,Ur Normal Normal NORM [facility] Comment on above: Performed By: #### D CITLALY, LIP, CMPX, TROPI, BNP, CDP, PT #### [facility] [address] [place] [address] [place] [address] Lieutenant Firefighter: Sami Dominguez MD Comment NOT REPORTED Normal [facility] Comment on above: Performed By: #### D CITLALY, LIP, CMPX, TROPI, BNP, CDP, PT #### [address] [place] [address] Lieutenant Firefighter: Sami Dominguez MD Urinalysis Reflex to Culture on 08-02-2019 Bilirubin Urine Negative NEGATIVE [facility], [place] Color, UA YELLOW YELLOW [place] Glucose, Ur Negative NEGATIVE [place] Interpretation and review of laboratory results Abnormal [place] Ketones Ql (U) Negative NEGATIVE [place] Leukocyte esterase Test strip Ql (U) MODERATE Abnormal NEGATIVE [facility], [place] Nitrite, Urine Negative NEGATIVE [facility], [place] pH, UA 6.0 [place] Protein (U) [Mass/Vol] TRACE Abnormal NEGATIVE [facility], [place] Specific [place], UA 1.010 [facility], [place] Turbidity UA CLEAR CLEAR [place] Urinalysis Comments NOT REPORTED [place] Urine Hgb 1+ Abnormal NEGATIVE [place] Urobilinogen, Urine Normal Normal [place] Urinalysis,Microon 9 ----- Normal [facility] Comment on above: Performed By: #### D CITLALY, LIP, CMPX, TROPI, BNP, CDP, PT #### [facility] [address] [place] [address] Lieutenant Firefighter: Sami Dominguez MD Bacteria LM.HPF (Urine sed) [#/Area] 1+ Abnormal NONE [facility] Comment on above: Performed By: #### D CITLALY, LIP, CMPX, TROPI, BNP, CDP, PT #### [facility] [address] [place] [address] Lieutenant Firefighter: Sami Dominguez MD Epithelial cells LM.HPF (Urine sed) [#/Area] 2 TO 5 Normal 0-25 [facility] Comment on above: Performed By: #### D CITLALY, LIP, CMPX, TROPI, BNP, CDP, PT #### [address] [place] [address] Lieutenant Firefighter: Sami Dominguez MD RBC (U) [#/Vol] None Normal 0-2 [facility] Comment on above: Performed By: #### D CITLALY, LIP, CMPX, TROPI, BNP, CDP, PT #### [facility] [address] [place] [address] Lieutenant Firefighter: Sami Dominguez MD WBC (U) [#/Vol] 50 TO 100 Normal 0-5 [facility] Comment on above: Performed By: #### D CITLALY, LIP, CMPX, TROPI, BNP, CDP, PT #### [facility] [address] [place] [address] Lieutenant Firefighter: Sami Dominguez MD Amorphous sediment LM Ql (Urine sed) NOT REPORTED Normal [facility] Comment on above: Performed By: #### D CITLALY, LIP, CMPX, TROPI, BNP, CDP, PT #### [facility] [address] [place] [address] Lieutenant Firefighter: Sami Dominguez MD Casts LM.LPF (Urine sed) [#/Area] NOT REPORTED Normal [facility] Comment on above: Performed By: #### D CITLALY, LIP, CMPX, TROPI, BNP, CDP, PT #### [facility] [address] [place] [address] Lieutenant Firefighter: Sami Dominguez MD Crystals LM Nom (Urine sed) NOT REPORTED Normal [facility] Comment on above: Performed By: #### D CITLALY, LIP, CMPX, TROPI, BNP, CDP, PT #### [address] [place], [facility] Lieutenant Firefighter: Sami Dominguez MD Epithelial, Renal NOT REPORTED Normal 0 [facility] Comment on above: Performed By: #### D CITLALY, LIP, CMPX, TROPI, BNP, CDP, PT #### [address] [place], [place] [id number] Lieutenant Firefighter: Sami Dominguez MD Mucus Strands NOT REPORTED Normal [facility] Comment on above: Performed By: #### D CITLALY, LIP, CMPX, TROPI, BNP, CDP, PT #### [facility] [address] [place] [address] [place] [address] Lieutenant Firefighter: Sami Dominguez MD Other Observations NOT REPORTED Normal NREQ [facility] Comment on above: Performed By: #### D CITLALY, LIP, CMPX, TROPI, BNP, CDP, PT #### [facility] [address] [place], [place] [id number] Lieutenant Firefighter: Sami Dominguez MD Trichomonas NOT REPORTED Normal [facility] Comment on above: Performed By: #### D CITLALY, LIP, CMPX, TROPI, BNP, CDP, PT #### [facility] [address] [place] [id number] Lieutenant Firefighter: Sami Dominguez MD Yeast LM Ql (Urine sed) NOT REPORTED Normal NONE [facility] Comment on above: Performed By: #### D CITLALY, LIP, CMPX, TROPI, BNP, CDP, PT #### [facility] [address] [place] [id number] Lieutenant Firefighter: Sami Dominguez MD XR CHEST PORTABLEon 08-02-20 [...] Cullen Ngo MD 08/02/[address] [facility] EXAMINATION: ONE XRA Y VIEW OF THE CHEST 08/02/2019 12:59 pm COMPARISON: None. HISTORY: ORDERING SYSTEM PROVIDED HISTORY: CP TECHNOLOGIST PROVIDED HISTORY: CP FINDINGS: Heart size and pulmonary vessels are within normal limits. Lungs are clear. No focal infiltrates or significant pleural effusions are seen. There is no acute osseous abnormality. Monitor leads overlie the chest. [place] No acute cardiopulmo nary process. [place] Mos[place], [facility] Incoming Radiant Results From [facility] - 08/02/2019 1:10 PM EDT EXAMINATION: ONE [...] the chest. IMPRESSION: No acute cardiopulmonary process. [place] Vital Signs Date Time Vital Sign Value Performing Clinician Facility 07-30-2022 17:40-0400 Body height 157.48 cm Yaneth Toni Other [facility] Other 07-30-2022 17:40-0400 Body mass index (BMI) [Ratio] 36.69 kg/m2 Yaneth Toni Other [facility] Other 07-30-2022 17:40-0400 Body temperature 97.4 [degF] Yaneth Toni Other [facility] Other 07-30-2022 17:40-0400 Body weight 90.99 kg Yaneth Toni Other [employer] Other 07-30-2022 17:40-0400 Diastolic blood pressure 85 mm[Hg] Yaneth Toni Other [employer] Other 07-30-2022 17:40-0400 Respiratory rate 18 /min Yaneth Toni Other [employer] Other 07-30-2022 17:40-0400 SaO2% (BldA) [Mass fraction] 99 % Yaneth Toni Other [facility] Other 07-30-2022 17:40-0400 Systolic blood pressure 124 mm[Hg] Yaneth Toni Other [facility] Other 07-03-2022 09:45-0400 Body height 157.48 cm Estefania Vo Other [facility] Other 07-03-2022 09:45-0400 Body mass index (BMI) [Ratio] 36.76 kg/m2 Estefania Vo Other [facility] Other 07-03-2022 09:45-0400 Body temperature 97 [degF] Estefania Vo Other [facility] Other 07-03-2022 09:45-0400 Body weight 91.17 kg Estefania Vo Other [facility] Other 07-03-2022 09:45-0400 Diastolic blood pressure 60 mm[Hg] Estefania Vo Other [facility] Other 07-03-2022 09:45-0400 SaO2% (BldA) [Mass fraction] 99 % Estefania Vo Other [facility] Other 07-03-2022 09:45-0400 Systolic blood pressure 110 mm[Hg] Estefania Vo Other [employer] Other 06-20-2022 16:10-0400 Diastolic blood pressure 68 mm[Hg] DO Ming Espinoza Work Phone: [facility] 06-20-2022 16:10-0400 Heart rate 69 /min DO Ming Espinoza Work Phone: [facility] 06-20-2022 16:10-0400 Respiratory rate 18 /min DO Ming Alexis Work Phone: [facility] 06-20-2022 16:10-0400 SaO2% (BldA) [Mass fraction] 100 % DO Ming Alexis Work Phone: [facility] 06-20-2022 16:10-0400 Systolic blood pressure 126 mm[Hg] DO Ming Alexis Work Phone: [facility] 06-20-2022 13:15-0400 Body height 157.48 cm DO Ming Alexis Work Phone: [facility] 06-20-2022 13:15-0400 Body temperature 98.6 [degF] DO Minglizz Espinoza Work Phone: [facility] 06-20-2022 13:15-0400 Body weight 91.5 kg DO iMng Espinoza Work Phone: [facility] 06-18-2022 10:45-0400 Diastolic blood pressure 79 mm[Hg] DO Ming Espinoza Work Phone: [facility] 06-18-2022 10:45-0400 Heart rate 66 /min DO Ming Espinoza Work Phone: [facility] 06-18-2022 10:45-0400 Respiratory rate 16 /min DO Ming Espinoza Work Phone: [facility] 06-18-2022 10:45-0400 SaO2% (BldA) [Mass fraction] 100 % DO Ming Espinoza Work Phone: [facility] 06-18-2022 10:45-0400 Systolic blood pressure 130 mm[Hg] DO Ming Espinoza Work Phone: [facility] 06-18-2022 08:08-0400 Body mass index (BMI) [Ratio] 37.8 kg/m2 DO Ming Espinoza Work Phone: [facility] 06-18-2022 07:41-0400 Body height 157.48 cm DO Ming Espinoza Work Phone: [facility] 06-18-2022 07:41-0400 Body weight 93.89 kg DO Minglizz Espinoza Work Phone: [facility] 06-18-2022 06:26-0400 Body temperature 98.5 [degF] DO Ming Espinoza Work Phone: [facility] 05-30-2022 11:00-0400 Body height 157.48 cm Jesus Parham Other [facility] Other 05-30-2022 11:00-0400 Body mass index (BMI) [Ratio] 36.76 kg/m2 Jesus Dione Other [facility] Other 05-30-2022 11:00-0400 Body temperature 97.6 [degF] Jesus Parham Other [facility] Other 05-30-2022 11:00-0400 Body weight 91.17 kg Jesus Dione Other [facility] Other 05-30-2022 11:00-0400 Diastolic blood pressure 76 mm[Hg] Jesus Parham Other [facility] Other 05-30-2022 11:00-0400 SaO2% (BldA) [Mass fraction] 98 % Jesus Dione Other [facility] Other 05-30-2022 11:00-0400 Systolic blood pressure 128 mm[Hg] Jesus Parham Other [facility] Other 05-02-2022 14:40-0400 Body height 157.48 cm Yaneth Toni Other [facility] Other 05-02-2022 14:40-0400 Body mass index (BMI) [Ratio] 36.76 kg/m2 Yaneth Toni Other [facility] Other 05-02-2022 14:40-0400 Body temperature 97.7 [degF] Yaneth Toni Other [facility] Other 05-02-2022 14:40-0400 Body weight 91.17 kg Yaneth Toni Other [facility] Other 05-02-2022 14:40-0400 Diastolic blood pressure 88 mm[Hg] Yaneth Toni Other [facility] Other 05-02-2022 14:40-0400 Respiratory rate 18 /min Yaneth Toni Other [facility] Other 05-02-2022 14:40-0400 SaO2% (BldA) [Mass fraction] 98 % Yaneth Toni Other [facility] Other 05-02-2022 14:40-0400 Systolic blood pressure 121 mm[Hg] Yaneth Toni Other [facility] Other 04-30-2022 10:10-0400 Body height 157.48 cm Dipika Shantell Other [facility] Other 04-30-2022 10:10-0400 Body mass index (BMI) [Ratio] 37.86 kg/m2 Dpiika Shantell Other [facility] Other 04-30-2022 10:10-0400 Body temperature 97.4 [degF] Dipika Shantell Other [facility] Other 04-30-2022 10:10-0400 Body weight 93.9 kg Dipika Shantell Other [facility] Other 04-30-2022 10:10-0400 Diastolic blood pressure 80 mm[Hg] Dipika Stinson Other [facility] Other 04-30-2022 10:10-0400 Respiratory rate 16 /min Dipika Stinson Other [facility] Other 04-30-2022 10:10-0400 SaO2% (BldA) [Mass fraction] 100 % Dipika Stinson Other [facility] Other 04-30-2022 10:10-0400 Systolic blood pressure 117 mm[Hg] Dipika Stinson Other [facility] Other 04-01-2022 09:13-0400 Diastolic blood pressure 62 mm[Hg] DO Ming Espinoza Work Phone: [facility] 04-01-2022 09:13-0400 Heart rate 83 /min DO Ming Espinoza Work Phone: [facility] 04-01-2022 09:13-0400 Respiratory rate 16 /min DO Ming Espinoza Work Phone: [facility] 04-01-2022 09:13-0400 SaO2% (BldA) [Mass fraction] 97 % DO Ming Espinoza Work Phone: [facility] 04-01-2022 09:13-0400 Systolic blood pressure 101 mm[Hg] DO Ming Alexis Work Phone: [facility] 04-01-2022 07:23-0400 Body height 157.48 cm DO Ming Alexis Work Phone: [facility] 04-01-2022 07:23-0400 Body mass index (BMI) [Ratio] 37.8 kg/m2 DO Ming Alexis Work Phone: [facility] 04-01-2022 07:23-0400 Body temperature 97.8 [degF] DO Ming Alexis Work Phone: [facility] 04-01-2022 07:23-0400 Body weight 93.89 kg DO Ming Espinoza Work Phone: [facility] 12-06-2021 16:20-0500 Body height 157.48 cm Yaneth Toni Other [facility] Other 12-06-2021 16:20-0500 Body mass index (BMI) [Ratio] 37.86 kg/m2 Yaneth Toni Other [facility] Other 12-06-2021 16:20-0500 Body weight 93.9 kg Yaneth Toni Other [facility] Other 12-06-2021 16:20-0500 Diastolic blood pressure 89 mm[Hg] Yaneth Toni Other [facility] Other 12-06-2021 16:20-0500 Respiratory rate 18 /min Yaneth Toni Other [facility] Other 12-06-2021 16:20-0500 SaO2% (BldA) [Mass fraction] 97 % Yaneth Toni Other [facility] Other 12-06-2021 16:20-0500 Systolic blood pressure 134 mm[Hg] Yaneth Toni Other [employer] Other 08-02-2019 16:35-0400 Body Temperature 99.3 [degF] [facility] [place] 08-02-2019 16:27-0400 Pulse (Heart Rate) 110 /min [facility] [place] 08-02-2019 16:27-0400 Pulse Oximetry 98 % [facility]idal [facility] [place] 08-02-2019 16:27-0400 Respiratory Rate 14 /min Vidal Peguero [facility] [place] 08-02-2019 16:16-0400 BP Diastolic 56 mm[Hg] Vidal Peguero [facility] , [place] 08-02-2019 16:16-0400 BP Systolic 97 mm[Hg] Vidal Peguero [facility] [place] 08-02-2019 14:59-0400 BMI (Body Mass Index) 37.79 kg/m2 Vidal Peguero [facility], [place] 08-02-2019 14:59-0400 Body weight 90.72 kg Vidal Peguero [facility] [place] 08-02-2019 14:59-0400 Height 154.9 cm Vidal Peguero [facility] [place] Encounters Encounter Date Encounter Type Care Provider Facility Start: 12-23-2023 End: 12[facility] Start: 11-06-2023 End: 11-06-2023 ambulatory Ming Espinoza Facility:[facility] Start: 11-06-2023 End: 11-06-2023 ambulatory DO Ming Espinoza Work Phone: [facility] Work Phone: Start: 11-06-2023 End: 11-06-2023 Patient encounter procedure DO Ming Espinoza Work Phone: [facility] [address] Work Phone: Start: 10-13-2023 End: 10-13-2023 ambulatory MING ESPINOZA Not Available Start: 09-01-2023 End: 09-01-2023 ambulatory [facility] Start: 08-26-2023 ambulatory [facility] Start: 07-30-2023 End: 07-30-2023 ambulatory Ming Espinoza Facility:[facility] Start: 06-28-2023 ambulatory [facility] Start: 05-29-2023 ambulatory [facility] Start: 04-30-2023 ambulatory SUJIT [facility] Start: 04-16-2023 End: 04-16-2023 ambulatory SUJIT [facility] Start: 03-31-2023 ambulatory SUJIT DOLORES [facility] Start: 02-24-2023 ambulatory SUJIT DOLORES [facility] Start: 02-03-2023 End: 02-03-2023 ambulatory [facility] Start: 02-01-2023 ambulatory SUJIT [facility]OLORES [facility] Start: 01-17-2023 ambulatory SUJIT DOLORES [facility] Start: 01-17-2023 Encounter for other preprocedural examination [facility] Start: 01-09-2023 ambulatory SUJIT DOLORES [facility] Start: 01-01-2023 ambulatory SUJIT DOLORES [facility] Start: 12-25-2022 End: 12-25-2022 ambulatory AGUILA [facility] Start: 07-30-2022 End: 07-30-2022 ambulatory Yaneth Toni Other [employer] Other Start: 07-30-2022 Office outpatient vi sit 25 minutes Yaneth Toni [facility] Start: 07-29-2022 End: 07-30-2022 ambulatory YANETH TONI Facility: Start: 07-16-2022 End: 07-16-2022 ambulatory DO Ming Espinoza Work Phone: [facility] Work Phone: Start: 07-16-2022 End: 07-16-2022 Patient encounter procedure DO Ming Espinoza Work Phone: [facility] Start: 07-03-2022 End: 07-03-2022 ambulatory Estefania Vo Other [facility] Other Start: 07-03-2022 [facility] Start: 06-20-2022 End: 06-20-2022 ambulatory Jesus Parham Other [facility] Other Start: 06-20-2022 Telephone encounter Jesus adler [facility] Start: 06-20-2022 End: 06-20-2022 Emergency department patient visit DO Ming Espinoza Work Phone: [facility]gency [facility] Start: 06-18-2022 End: 06-18-2022 Admission to same day surgery center DO Ming Espinoza Work Phone: [facility]gery [facility] [place] Start: 06-14-2022 End: 06-14-2022 Patient encounter procedure DO Ming Espinoza Work Phone: [facility]Pre-Surgical Testing Start: 06-06-2022 End: 06-07-[address] BRINDA HINOJOSA Facility: Start: 06-05-2022 End: 06-05-2022 Patient encounter procedure DO Ming Espinoza Work Phone: [facility] Start: 06-03-2022 End: 06-03-2022 ambulatory Jesus Parham Other [facility] Other Start: 06-03-2022 Encounter for other preprocedural examination Jesus Parham [facility] Start: 06-03-2022 Telephone encounter Jesus adler [facility] Start: 05-30-2022 End: 05-30-2022 ambulatory Jesus Parham Other [facility] Other Start: 05-30-2022 [facility] visit new patient Jesus Tarik isabel [facility] Start: 05-30-2022 End: 05-30-2022 Patient encounter procedure DO Ming Espinoza Work Phone: [facility] [place] [facility] Start: 05-29-[address] BLAKE HINOJOSA [facility] ity:[facility] Start: 05-02-2022 End: 05-02-2022 ambulatory Yaneth Toni Other [place] [employer] Other Start: 05-02-2022 Office outpatient vi sit 25 minutes Yanethfélix Englandr [facility] Start: 04-30-2022 End: 04-30-2022 ambulatory Dipika Stinson Other [place] [facility] Other Start: 04-30-2022 Office outpatient vi sit 15 minutes Dipika Stinson [facility] Start: 04-30-2022 Encounter for preprocedural laboratory examination YANETH ENGLANDR [facility] Start: 04-29-2022 Encounter for other preprocedural examination DR DOCTOR ALEJANDRO [facility] Start: 04-27-2022 End: 04-28-2022 Encounter for other preprocedural examination DR MING ESPINOZA Facility:[facility] Start: 04-27-2022 End: 04-28-[address] MING ESPINOZA Facility:[facility] Start: 04-27-2022 End: 04-28-2022 Encounter for preprocedural laboratory examination YANETH TONI Facility:[facility] Start: 04-03-2022 Encounter for other specified special examinations DR DOCTOR ALEJANDRO [facility] Start: 04-01-2022 End: 04-01-2022 Admission to same day surgery center DO Ming Espinoza Work Phone: [facility] Start: 03-29-2022 End: 03-30-[address] DOCTOR ALEJANDRO Facility:[facility] Start: 03-29-2022 End: 03-30-2022 Encounter for other specified special examinations DR DOCTOR ALEJANDRO Facility:[facility] Start: 03-28-2022 End: 03-28-2022 Patient encounter procedure DO Ming Espinoza Work Phone: [facility]Pre-Surgical Testing Start: 02-26-2022 End: 02-26-2022 ambulatory Shabbir Jones Other [employer] Other Start: 02-26-2022 Telephone encounter Shabbir VELAZQUEZ [facility] Start: 12-06-2021 End: 12-06-2021 ambulatory Yaneth Toni Other [facility] Other Start: 12-06-2021 Office outpatient vi sit 25 minutes Yaneth Toni [facility] Start: 12-03-2021 End: 12-04-2021 ambulatory YANETH TONI Facility:[facility] Start: 09-01-2021 End: 09-02-[address] MING ESPINOZA Facility:[facility] Start: 08-02-2019 End: 08-02-2019 Emergency department patient visit [facility] Start: 08-02-2019 End: 08-02-2019 Emergency department patient visit Vidaljasmin Madrigal Work Phone: [facility] ED Comment on above: Acute sepsis [...] Date Care Activity Detail Author Start: 11-06-2023 [facility] Start: 06-18-2022 [facility] Start: 06-18-2022 [facility] Start: 04-01-2022 [facility] Work Phone: Start: 06-06-2019 Influenza vaccination Flu vaccine (# 1) [place], [place] Start: 2015 Lipid screen Lipid screen [place], [place] Start: 1996 Cervical cancer screen Cervical canc er screen [place], [place] Start: 1994 DTaP/Tdap/Td vaccine (1 - Tdap) DTaP/Tdap/Td vaccine (1 - Tdap) [place], [place] Start: 1990 HIV screen HIV screen [place], [place] Start: 1975 Creatinine monitoring Creatinine mon itoring [place], [place] Start: 1975 Potassium monitoring Potassium monit oring [place] End: 08-02-2019 Bacteria identified Cx Nom (U) Urine Culture Microbiology STAT One Time for 1 Occurrences starting 08/02/2019 until 08/02/2019 [place] Comment on above: One Time for 1 Occur rences starting 08/02/2019 until 08/02/2019 Bacteria identified Cx Nom (U) Urine Culture Microbiology STAT 08/02/2019 1:00 PM EDT [place] End: 08-02-2019 Culture blood #1 Culture blood #1 Microbiology STAT One Time for 1 Occurrences starting 08/02/2019 until 08/02/2019 [place] Comment on above: One Time for 1 Occur rences starting 08/02/2019 until 08/02/2019 End: 08-02-2019 Culture blood #2 Culture blood #2 Microbiology STAT One Time for 1 Occurrences starting 08/02/2019 until 08/02/2019 [facility] [place] Comment on above: One Time for 1 Occur rences starting 08/02/2019 until 08/02/2019 EKG 12 Lead EKG 12 Lead ECG STAT 08/02/2019 12:25 PM EDT [facility] [place] Homogenous nuclear A b pattern [Titer] in Serum [facility] Initiate Oxygen Ther apy Protocol Initiate Oxygen Therapy Protocol Respiratory Care Routine Daily until discontinued starting 08/02/2019, 2 completed [facility] [place] Comment on above: Daily until disconti nued starting 08/02/2019, 2 completed End: 08-02-2019 Lactate, Sepsis Lactate, Sepsis Lab Timed Now Then Every 2hr for 2 Occurrences starting 08/02/2019 until 08/02/2019, 1 completed [facility] [place] Comment on above: Now Then Every 2hr f or 2 Occurrences starting 08/02/2019 until 08/02/2019, 1 completed Nuclear Ab [Titer] i n Serum [facility] Patient Education [facility] Work Phone: Patient referral [facility] Work Phone: Potassium [Moles/vol ume] in Serum or Plasma [facility] Work Phone: Immunizations Immunization Date Immunization Notes Care Provider Chirag summers 10-13-2021 COVID-19 Ad26.COV2.S ([place]) DO Ming Espinoza Work Phone: [facility] Payers Date Payer Category Payer Unknown [employer] [address] xxxxxxxxx 2015-Present [phone] [address] [place] [address] xxxxxxxxx [id number] 1975 Unknown [id number] 1975 Unknown [id number] 1975 Unknown [id number] 1975 Unknown [id number] 1975 Unknown [id number] 1975 Unknown [id number] 1975 Unknown [id number] 1975 Unknown [id number] 1975 Unknown [id number] 1975 Unknown [id number] 9 1959 Self-pay [id number] 1959 Unknown [id number] 1959 Unknown [id number] Unknown [id number] Unknown [id number] Unknown [id number] Social History Date Type Detail Facility Tobacco smoking status MSIS Unknown if ever smoked [facility], [place] Sex Assigned At Not on file [facility], [place] Sex Assigned At Sex Assigned At [facility] Other Start: 06-05-2022 End: 06-20-2022 Tobacco smoking status NHIS Never smoked tobacco (finding) [facility] Start: 1975 Sex Assigned At Female F [facility] Goals Date Patient Goal Desired Activity /State Clinical Notes 05-17-2020 to 12-23-2023 Note Date & Type Note Facility 12-23-2023 Note 12/23/23 Chief Complaint Patient presents with Kidney Follow-up Pt has questions about her lab work. PCP: Ming Espinoza MD Txp Referring: Yaneth Muñoz [facility] Pharmacy: [facility] - [place], [place] - [address] [place] [address] [place] [address] [facility] [address] [facility][id number] [place], [place] [address] [facility] [address] [address] [facility] [address] [facility] [address] [facility] [id number] Subjective Visit Vitals BP 116/73 (BP Location: [...] Review Audit Reviewed by Trupti Sanchez MA (Contact [employer]ocker) on 12/23/23 at 1430 Medication Order Taking? Sig Documenting Provider Last Dose Status amLODIPine (Norvasc) 10 mg tablet [id number] Take 1 tablet (10 mg) by mouth in the morning. Aguila Pa MD 10/24/23 2359 bumetanide (Bumex) 2 mg tablet [id number] Take 1 tablet (2 mg) by mouth in the morning. Patient not taking: Reported on 11/08/2022 Aguila Pa MD 10/25/22 2359 docusate sodium (Colace) 100 mg capsule [id number] Take 1 capsule (100 mg) by mouth in the morning and at bedtime. Patient not taking: Reported on 09/01/2023 Paty Ansari, NORMA Active DULoxetine (Cymbalta) [address] capsule [id number] Yes Take 1 capsule every day by oral route. Historical ProviderMD Taking Active Envarsus XR 1 mg tablet ER [id number] Yes TAKE 3 TABLETS BY MOUTH ONCE DAILY IN THE MORNING. TAKE ALONG WITH 0.75 MG TABLETS DIRECTED FOR TOTAL DOSE UP TO 4.5 MG PER DAY. Patient taking differently: Take 2 mg by mouth in the morning. Aguila Pa MD Taking Active famotidine (Pepcid) 20 mg tablet [id number] Yes Take 1 tablet (20 mg) by mouth in the morning. Patient taking differently: Take 20 mg by mouth if needed. Aguila Pa MD Taking Active febuxostat (Uloric) 40 mg tablet [id number] Take 0.5 tablets every day by oral route. Historical ProviderMD Active ferrous sulfate 325 (65 Fe) MG tablet [id number] No Take 65 mg by mouth every other day. Historical ProviderMD Not Taking Active fish oil (Easton-3) 60-90-500 mg capsule [id number] No Take 2 capsules (1,000 mg) by mouth in the morning and at bedtime. Patient not taking: Reported on 12/23/2023 Sujit Bernal MD Not Taking Active Levemir FlexPen 100 unit/mL (3 mL) pen [id number] No INJECT 12 UNITS SUBCUTANEOUS IN AM 30 DAYS Historical ProviderMD Not Taking Flag for Review magnesium oxide (Mag-Ox) 400 mg (241.3 mg magnesium) tablet [id number] Yes TAKE 2 TABLETS BY MOUTH IN THE MORNING AND 2 TABLETS AT BEDTIME [place] Davies MD Taking Active mycophenolate (Myfortic) 180 mg EC tablet [id number] Yes Take 4 tablets (720 mg) by mouth in the morning and at bedtime. Aguila Pa MD Taking Active oxyCODONE-acetaminophen (Percocet) 5-325 mg tablet [id number] Take 1 tablet by mouth every 6 (six) hours if needed for severe pain (8-10 pain score) for up to 20 doses. Patient not taking: Reported on 09/01/2023 Paty Ansari NP Active potassium chloride CR (Klor-Con M20) 20 mEq ER tablet [id number] Yes Take 1 tablet (20 mEq) by mouth in the morning. Do not crush or chew. Andrea Elizondo MD Taking Active pravastatin (Pravachol) 40 mg tablet [id number] Yes Take 1 tablet (40 mg) by [...] of kidney Stage 4 chronic kidney disease ([facility]) Encounter for aftercare following kidney transplant Immunosuppressed status ([facility]) Hyperuricemia Metabolic acidosis Bilateral lower extremity edema [...] Smokeless tobacco: Neve (more content not included)... [facility] 10-02-2023 Note Per phone order Tyler sorto MD, increase Kdur from 10meq every day to 20meq every day due to K 3.2 on 09/26/23. Pt informed and verbalized understanding. Amiloride removed from her MAR as she reported in July she is not taking and reconfirmed today. [facility] 09-01-2023 Note ---- [...] making adequate urine output with no proteinuria. [place] kidneys with adult polycystic kidney disease BK [...] for dysphoric moo (more content not included)... [facility] 08-06-2023 Note For K-level of 3.4, left VM to start Kdur [address] Bernal po. [facility] 07-24-2023 Note PT reports not lindsay ating the Amiloride with daily watery diarrhea (no longer formed) x 1 since starting medication with nausea and indigestion/acid reflux aggravated at times even with water. Pt will complete FU CMP and hold this medication pending review with MD transplant provider. Advised her DSA collection is due as well and she verbalized understanding. Denies fever, chills or being around persons known to be ill. [facility] 07-24-2023 Note Per phone order Minerva morel MD, discontinue amiloride due to side effects and recheck her CMP in 2 weeks as serum K may drop. This coordinator spoke with Ramila victor in lab to complete CMP today. DSA reentered for next lab draw. Pt notified by phone and verbalized understanding. [facility] 07-24-2023 Note Per Shelly x [phone] BM P specimen not available. Notified Dolores FIERRO by phone and per his phone order, will repeat this labs in 7-10 days and pt was notified by phone and she verbalized understanding. Pt needs copy of her standing lab order. Will prepare for her pickup. [facility] 07-17-2023 Note Reviewed [...] before the end of the year with MD transplant by clinic [facility] Mendez. Per Dolores FIERRO, the pt may discontinue her Prednisone 5mg every other day dosing and she acknowledged. Tac pending. [facility] 07-16-2023 Note Reviewed by phone wi dahlia Bernal MD pt input about her medication changes by PCP including stopping Amiloride. MD agreed to reschedule her 07/18 RV and review labs tomorrow by phone. Clinic [place] team informed to reschedule pt. [facility] 07-16-2023 Note Pt reports stopping Amiloride 5mg every day and starting Potassium 20meq every day & Ozempic 1mg subcutaneous weekly per PCP with improved glucose control. Monitors BP and no concerns. She will present to lab tomorrow for testing. Pt agrees and verbalized understanding. Pt to located her standing lab order for use @ [facility] prn. [facility] 07-10-2023 Note Returned 0816 voicem ail to pt asking about dental work antibiotic prophylaxis. Confirmed with pt no allergies to antibiotics and advised to take Amoxicillin 2 grams PO 30-60 minutes prior to dental work or cleanings and she verbalized understanding. PT will contact her dentist for RX she stated. [facility] 06-17-2023 Note Returned patients ca ll regarding local pharmacy informing her of a DDI Recommended to patient to take Crestor in the evening and Magnesium during the day (or at least 2 hours apart) to avoid decreased absorption due to DDI Liam Viveros PharmD Candidate 2023 [facility] 06-15-2023 Note 06/15/23 1100 Pt called and said was out of myfortic, mail order did not arrive. Pt takes myfortic 720 twice a day. Pt chart reviewed and dose confirmed. Prescription called in to [facility] pharmacy. 5 days supply, 40 tablets. Myfortic 180 tablets, take 720 mg - 4 tablets, twice a day. Pt notified myfortic available MD outpt pharm, open until 4 pm Friday. Pt verbalized understanding. [facility] 04-30-2023 Note Reviewed [...] she is currently taking Envarsus 2 mg. [facility] 04-16-2023 Note Seen by Dolores FIERRO in clinic today, he states he gave the pt verbal instruction to reduce her Prednisone to 5mg every other day. [facility] 04-16-2023 Note Nephrology [...] back: Neck sup (more content not included)... [facility] 04-11-2023 Note Reviewed Mag K & cre atinine with Guillermo FIERRO and to start Amiloride 5mg every day due to low mag level 1.6. Pt notified and she verbalizes understanding. RV 04/16 [facility] 04-11-2023 Note Pt [...] 6 months post transplant and she agrees. [facility] 02-24-2023 Note Per dede Isabel nt notified to start taking Potassium chloride 20 meq daily. Pt verbalized understanding [facility] 02-04-2023 Note CK: 26.0. Reviewed l ab results with Dr. Bernal. No new orders at this time. [facility] 02-03-2023 Note Nephrology [...] No weakness. Ps (more content not included)... [facility] 01-09-2023 Note Tac:4.4. Reviewed la b results with Dr. Bernal. New order to increase Envarsus by 0.5mg daily. New daily dose will be Envarsus 2mg. Patient verbalizes understanding of medication change and will repeat tac level in a week. [facility] 01-01-2023 Note Tac: 10. Reviewed la b results with Dr. Bernal. New order to decrease Envarsus by 0.5mg daily. New daily dose will be Envarsus 1.5mg. Patient verbalizes understanding of medication change and repeat lab in a week. [facility] 12-25-2022 Note Patient seen in clin ic today with Dr. Pa, to decrease Envarsus by 1 mg daily, new dose will now be 2 mg daily. Voiced understanding of medication change and will repeat level in about a week. [facility] 12-25-2022 Note 12/25/2022 Chief complaint: Kidney transplant follow-up PCP: Ming Espinoza MD Txp Referring: Felecia Barriga Pharmacy: [facility] [address] [place] [address] [place] [address] [facility] [address] [facility]/pharmacy #[id number] CORNER OF [address] [address] Subjective Visit Vitals BP 134/88 (BP Location: Right arm, Patient Position: Sitting, BP Cuff Size: Large adult) Pulse 88 Temp 36.8 ???C (98.2 ???F) (Oral) Wt 92 kg (202 lb 14.4 oz) BMI 37.11 kg/m??? OB Status Hysterectomy Smoking Status Never BSA 2.01 m??? Allergies Allergen Reactions Allopurinol Effexor [Venlafaxine] Hives Venlafaxine Hcl Other reaction(s): bad side effect Immunization History Administered Date(s) Administered Ainsley Sars-Cov-2 Vaccination 10/13/2021 Patient Active Problem List Diagnosis Anxiety COVID-19 Depressive disorder Gastroesophageal reflux disease Gout Hypertension Multiple congenital cysts of kidney Stage 4 chronic kidney disease (CMS/HCC) Encounter for aftercare following kidney transplant Immunosuppression (CMS/HCC) Hyperuricemia Metabolic acidosis Bilateral lower extremity edema [...] since 08/25/22 No documented travel since 08/25/22 NO Puri is a 47 y.o. female who [...] at home. Hyperlipide (more content not included)... [facility] 07-30-2022 Evaluation note [...] She has gout and follows with a pairer substandard. She takes Urolic and denies any recent gout flare Jul, Metabolic acidemia, unspecified (ICD-10 - P19.9) She has metabolic acidosis due to the advanced CKD. Continue oral Sodium Bicarbonate [facility] Other 09-28-2022 Evaluation note* Encounter Date Diagnosis [...] disease, unspecified CKD stage (ICD-10 - N18.9) [facility] Encounter Date Diagnosis Assessment Notes Treatment Notes Treatment Clinical Notes May, Pre-op testing (ICD-10 - Z01.818) [facility] Other 08-25-2022 Evaluation note* Encounter Date Diagnosis [...] will schedule this in the near future. [facility] Other 07-28-2022 Evaluation note* Encounter Date Diagnosis [...] explained to her the potential need of RESIST COATER DEVELOPER in future. I discussed with her different options of RESIST COATER DEVELOPER including PD, HTN renal transplant. I provide [...] stephens s gout and follows with a pairer substandard. She takes Urolic and denies any recent gout flare [facility] Other 07-26-2022 Evaluation note* Encounter Date Diagnosis [...] care provider if no improvement of symptoms. [facility] Other 05-24-2022 Evaluation note* Encounter Date Diagnosis Assessment Notes Treatment Notes Treatment Clinical Notes February, Screening for colon cancer (ICD-10 - Z12.11) [facility] Other 03-03-2022 Evaluation note* Encounter Date Diagnosis [...] explained to her the potential need of RESIST COATER DEVELOPER in future. I discussed with her different options of RESIST COATER DEVELOPER including PD, HTN renal transplant. I provide [...] She has gout and follows with a pairer substandard. She takes Urolic and denies any recent gout flare [facility] Other 06-25-2021 NotePatient Outreach (NEPHMN) MANDEEP PURI ([id number]) 1975 F Date Time Provider Department 03/30/21 PERRI BARRETT During your visit today, we recorded the following information about you: Allergies As of Date: 03/30/2021 Noted Allergy Reaction ALLOPURINOL 08/02/2019 4 - Hives Date Reviewed: 03/30/2021 Reviewed by: Perri Barrett MD - Fully Assessed Visit Diagnosis:Screening for genitourinary condition [Z13.89] Order(s):URINALYSIS, DIPSTICK ONLY [SQUA] Order #: [id number]. #:[id number] Prescriptions as of 03/30/2021 Sig: DULOXETINE 60 [...] dis*03/30/2021 Encounter Status:Closed by MAXX BAZAN on 04/02/21[facility] 03-30-2021 NoteHNO ID: [id number] Author: Perri Barrett MD Service: ? Author Type: Physician Type: Progress Notes Filed: 03/30/2021 10:25 AM Note Text: Mrs. 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 [facility] general Narrative - Reported * Type Description Date Medical History HTN (hypertension) Medical History Anxiety Medical History polycystic kidneys Medical History COVID 05-17-2020 Surgical History C section Surgical History BREAST REDUCTION Hospitalization History child Hospitalization History KIDNEY INFECTION 07/2019 Hospitalization History COVID AND DEHYDRATION [facility] Other 08-12-2020 History general Narrative - Reported* Type Description Date Medical History HTN (hypertension) Medical History Anxiety Medical History polycystic kidneys Medical History COVID 05-17-2020 Medical History end stage renal disease Surgical History C section Surgical History BREAST REDUCTION Surgical History colonoscopy 04/01/2022 Surgical History wisdom teeth 03/24/2022 Hospitalization History child Hospitalization History KIDNEY INFECTION 07/2019 Hospitalization History COVID AND DEHYDRATION [facility] Other 08-12-2020 History general Narrative - Reported* [...] INFECTION 07/2019 Hospitalization History COVID AND DEHYDRATION [facility] Other 08-12-2020 History general Narrative - Reported* [...] INFECTION 07/2019 Hospitalization History COVID AND DEHYDRATION [facility] Other Evaluation noteNo assessment information available [facility] Work Phone: Evaluation noteNo InformationNonorth [facility]Before Other Assessments Diagnosis Acute sepsis (HCC)- Primary Acute cystitis without hematuria Acute cystitis Chronic renal failure, stage 4 (severe) (HCC) Polycystic kidney disease Polycystic kidney, unspecified type Advance Directives No Advanced Directives Records FoundDocuments on File Type Date Recorded Patient Coiler Expl anation Advance Directives and Living Will Power of Photograph Developer Advance Directive Response Recorded Date/ Time [...] content) DATE CREATED AUTHOR 08/04/2019 [facility] DATE CREATED AUTHOR AUTHOR'S ORGANIZ ATION 04/28/2020 [facility] DATE CREATED AUTHOR AUTHOR'S ORGANIZ ATION 09/12/2020 [facility] DATE CREATED AUTHOR AUTHOR'S ORGANIZ ATION 11/07/2021 [facility] DATE CREATED AUTHOR AUTHOR'S ORGANIZ ATION 02/27/2022 [facility] DATE CREATED AUTHOR AUTHOR'S ORGANIZ ATION 08/04/2022 [facility] DATE CREATED AUTHOR AUTHOR'S ORGANIZ ATION 10/14/2023 [facility] DATE CREATED AUTHOR AUTHOR'S ORGANIZ ATION 11/14/2023 [facility] DATE CREATED AUTHOR AUTHOR'S ORGANIZ ATION 12/24/2023 [facility] Care Teams (unrecognized sec tion and content) Team Status: Inactive Member Role Status Dates Ming Espinoza , Primary Care Provider Active Jesus Parham MD Attending Provider Active Team Status: Inactive Member Role Status Dates Ming Espinoza , DO Primary Care Provider Active Shabbir Jones MD Attending Provider Active Team Status: Inactive Member Role Status Dates Ming Espinoza , Primary Care Provider Active Yaneth Muñoz MD Attending Provider Active Team Status: Active Member Role Status Dates Ming Espinoza , Primary Care Provider Active Team Status: Inactive Member Role Status Dates iMng Espinoza , Primary Care Provider Active Stanley Forman PA-C Emergency Provider Active Team Status: Inactive Member Role Status Dates Ming Espinoza , Primary Care Provider Active Blake Hinojosa , Attending Provider Active Team Status: Inactive Member [...] BE BASED ON THE PRIMARY CLINICAL RECORDS. [employer] provides no warranty or guarantee of the accuracy or completeness of information in this document.
[2024-02-27 07:51] LABS: Basophils Percent Auto 0.4 % (0.2-2.0); Eosinophils Absolute Auto 0.2 10^3/uL (0.0-0.7); Eosinophils Percent Auto 1.6 % (0.9-7.0); Hematocrit 34.6 % (36.0-48.0); Immature Granulocytes Abs Auto 0.06 10^3/uL (0.00-0.03); Immature Granulocytes Pct Auto 0.5 % (0.0-0.5); Lymphocytes Percent Auto 8.5 % (20.5-60.0); Mean Corpuscular HGB Conc 31.8 g/dL (29.9-35.2); Mean Corpuscular Hemoglobin 27.7 pg (26.7-34.0); Mean Corpuscular Volume 87.2 fL (81.0-99.0); Mean Platelet Volume 8.4 fL (9.5-13.5); Monocytes Absolute Auto 0.8 10^3/uL (0.3-0.8); Monocytes Percent Auto 6.6 % (1.7-12.0); Neutrophils Absolute Auto 9.4 10^3/uL (1.4-6.5); Neutrophils Percent Auto 82.4 % (43.0-75.0); Platelet Count 333 10^3/uL (150-450); Red Blood Count 3.97 10^6/uL (4.20-5.40); Red Cell Distribution Width 14.4 % (11.0-15.0); White Blood Count 11.4 10^3/uL (4.0-11.0)
[2024-02-27 08:06] LABS: Estimated Average Glucose 105 mg/dL; Glycohemoglobin A1C 5.3 % (4.5-6.2)
[2024-02-27 11:12] LABS: Alanine Aminotransferase 15 U/L (14-59); Albumin Globulin Ratio 0.8; Albumin Level 3.4 g/dL (3.4-5.0); Alkaline Phosphatase 81 U/L (46-116); Anion Gap 13.5; Aspartate Amino Transferase 12 U/L (15-37); BUN Creatinine Ratio 12.6; Bilirubin Direct 0.1 mg/dL (0.0-0.2); Bilirubin Total 0.4 mg/dL (0.2-1.0); Calcium 9.9 mg/dL (8.5-10.1); Carbon Dioxide 25.5 mmol/L (21.0-32.0); Chloride 101 mmol/L (98-107); Chol HDL Ratio 4.2; Cholesterol 191 mg/dL (<=200); Estimated GFR (African America 54 (>=60); Estimated GFR (Non-African Ame 45 (>=60); Globulin 4.4 g/dL; Glucose 99 mg/dL (74-106); HDL Cholesterol 46 mg/dL (40-60); Phosphorus 3.6 mg/dL (2.6-4.7); Sodium 136 mmol/L (136-145); Total Protein 7.8 g/dL (6.4-8.2); Triglycerides 167 mg/dL (<=150); Uric Acid 4.2 mg/dL (2.6-6.0); VLDL CHOLESTEROL 33.4 mg/dL
[2024-03-01 12:07] LABS: BKV DNA, Quant PCR, Plasma Negative (Negative)
[2024-03-02 11:07] LABS: Tacrolimus (FK506), Blood 4.7 ng/mL (2.0-20.0)
== END 2024-02-27 06:58 | disposition home or self-care (01) ==
PROVIDERS: PCP Internal Medicine; Visit Provider Internal Medicine Nephrology
DX: R73.01 Impaired fasting glucose (principal); Z94.0 Kidney transplant status
CPT/HCPCS: 36415; 80053; 80061; 80197; 82248; 83036; 83735; 84100; 84550; 85025; 87799

== ENCOUNTER 2024-03-22 00:48 | Emergency (ER) | payer OTHER, SELFPAY ==
[2024-03-22 00:50] VITALS: BP 130/73; PULSE 100; TEMP 36.6; O2SAT 100; BMI 32.4
--- OUTSIDE RECORDS SUMMARY | 2024-03-22 01:04 | XMS_ITS | CCD ---
Author Organization [facility] Care Team Providers Care Casting Coordinator Name Role Phone Ming Espinoza Primary Care Provider VIDAL MADRIGAL Attending Unavailable MING ESPINOZA Primary Care Unavailable Toni, Yaneth Unavailable Shabbir Jones Unavailable Dipika Stinson Unavailable Jesus Parham Unavailable DO Ming Espinoza Primary Care Provider MD Shabbir Jones Attending Provider MD Yaneth Muñoz Attending Provider MD Jesus [...] Unavailable TONI, YANETH Admitting Unavailable ALEXIS, DR ACSOTA Primary Care Unavailable TONI, YANETH Attending Unavailable TONI, YANETH Consulting Unavailable MING ESPINOZA Attending Unavailable MING ESPINOZA Referring Unavailable DO Ming Espinoza Primary Care Provider MD Perri Ceja Attending Provider CECILIA Edwards Attending Provider SUJIT BERNAL Attending Unavailable MUNIRA PHAN Attending Unavailable Self, Referral Admitting Unavailable Blake Hinojosa Referring Unavailable Ming Espinoza Primary Care Unavailable Self, Referral Attending Unavailable Ming Espinoza [facility] Care Unavailable Perri Ceja Attending Unavailable Perri Ceja Admitting Unavailable Andreia Edwards Attending Unavailable Andreia Edwards Admitting Unavailable Allergies Allergy Classification Reported Allergen(s) Allergy Type Date of Onset Reaction(s) Facility (13 sources) Allopurinol; Translations: [ALLOPURINOL] Drug Allergy 9 [place], [place] (8 sources) venlafaxine; Translations: [VENLAFAXINE] Drug Allergy 2 Rash, Rash, [facility] (1 source) venlafaxine; Translations: [VENLAFAXINE HCL] Drug Allergy 1 [facility] Repository (1 source) Allopurinol Drug Allergy 4 [facility] Repository Medications Current Medications Medication Drug Class(es) Dates Sig (Normalized) Sig (Original) amLODIPine 10 mg oral tablet (1 source) Dihydropyridine Calcium Channel Eliz Start: 03-15-2024 take 10 mg by mouth once daily Amlodipine Active 10 MG PO Daily March 15, 2024 12:00am amoxicillin 875 mg / clavulanate 125 mg oral tablet (2 sources) Penicillin-class Antibacterial Start: 04-30-2022 take 1 tablet by mouth every twelve hours Amoxicillin-Pot Clavulanate 875-125 MG 1 tablet Orally every 12 hrs for 7 days Apr, Active {1 (ascorbic acid 7540 MG / polyethylene glycol 3350 93745 MG / potassium chloride 1200 MG / sodium ascorbate 40624 MG / sodium chloride 3200 MG Powder for Oral Solution) / 1 (polyethylene glycol 3350 407600 MG / potassium chloride 1000 MG / sodium chloride 2000 MG / sodium sulfate 9000 MG Powder for Oral Solution) } Pack [Plenvu] (1 source) Osmotic Laxative, Vitamin C Start: 02-26-2022 Plenvu 140 GM dose 1 pouch at 4pm, dose 2 pouch A & B at 11pm Orally twice a day for 1 days [id number] PCN: [id number] GROUP:[id number] ID:[id number] February, Active cetirizine hydrochloride 10 mg oral tablet (10 sources) Histamine-1 Receptor Antagonist Start: 03-15-2024 take 1 tablet by mouth once daily as needed Cetirizine (Zyrtec) 10 mg tablet Active 10 MG PO Daily March 15, 2024 12:00am FreeTextSi tablet as needed Orally Once a day; Note: Source Status: Taking; Provider: Delma Whitney ( ) take 1 tablet by [facility] once daily as needed ZyrTEC Allergy 10 MG 1 tablet as needed Orally Once a day Active DULoxetine 60 mg delayed release oral capsule (16 sources) Serotonin and Norepinephrine Reuptake Inhibitor Start: 01-19-2019 take 60 mg by mouth once daily in the morning Duloxetine Active 60 MG PO Every morning January 19, 2019 12:00am DULoxetine HCl ( CYMBALTA PO) Take by mouth 0 Active ferrous sulfate 325 mg oral tablet (19 sources) Start: 03-15-2024 take 325 mg by mouth once daily Ferrous Sulfate Active 325 MG PO Daily March 15, 2024 12:00am Start: 04-01-2022 End: 03-15-2024 take 27 mg by mouth every other day Ferrous Sulfate Discontinued 27 MG PO Q2D April 01, 2022 12:00am March 15, 2024 5:30pm Start: 08-05-2019 End: 04-01-2022 take 324 mg [...] 1 tablet Orally every other day Active magnesium oxide 400 mg oral tablet (1 source) Start: 4 take 800 mg by mouth once daily at bedtime Magnesium Oxide Active 800 MG PO Daily at bedtime March 15, 2024 12:00am Multivitamin (Multiple Vitamins) tablet (1 source) Start: 4 take 1 tablet by mouth once daily Multivitamin (Multiple Vitamins) tablet Active 1 TAB PO Daily March 15, 2024 12:00am Multivitamin preparation (9 sources) take 1 tablet by mouth once daily Multi Vitamin - 1 tablet Orally Once a day Active MYCOPHENOLATE (1 source) Start: 4 take 180 mg by mouth once daily Mycophenolate Sodium Active 180 MG PO Daily March 15, 2024 12:00am Potassium Chloride (Klor-Con M20) 20 mEq tablet,ER particles/crystals (1 source) Start: 4 Potassium Chloride (Klor-Con M20) 20 mEq tablet,ER particles/crystals Active 20 MEQ PO Daily March 15, 2024 12:00am pravastatin sodium 40 mg oral tablet (1 source) HMG-CoA Reductase Inhibitor Start: 4 take 40 mg by mouth once daily Pravastatin Active 40 MG PO Daily March 15, 2024 12:00am Semaglutide (Ozempic) 2 mg/dose (8 mg/3 mL) pen injector (1 source) Start: 4 Semaglutide (Ozempic) 2 mg/dose (8 mg/3 mL) pen injector Active MG SUBCUT March 15, 2024 12:00am 3 ml sodium chloride 9 mg/ml injection (4 sources) Start: sodium chloride flush 0.9 % injection 10 mL Start: 08-02-2019 sodium chlorid e flush 0.9 % injection 10 mL Start: 08-02-2019 End: 08-02-2019 0.9 % sodium chloride bolus sulfamethoxazole 800 mg / trimethoprim 160 mg oral tablet (1 source) Dihydrofolate Reductase Inhibitor Antibacterial, Sulfonamide Antimicrobial Start: 03-15-2024 take 1 tablet by mouth twice daily Sulfamethoxazole-Trimethoprim (Bactrim Ds) 800-160 mg tablet Active 1 TAB PO Twice daily 14 7 March 15, 2024 12:00am 24 hr tacrolimus 1 mg extended release oral tablet (1 source) Calcineurin Inhibitor Immunosuppressant Start: 03-15-2024 Tacrolimus (Envarsus Xr) 1 m g tablet extended release 24 hr Active MG PO March 15, 2024 12:00am Completed/Discontinued Medications Medication Drug Class(es) Dates Sig (Normalized) Sig (Original) acetaminophen 500 mg oral tablet (7 sources) Start: 08-02-2019 End: 08-02-2019 acetaminophen (TYLENOL) tablet 1,000 mg Start: 08-02-2019 take 2 tablets by mo [facility] once daily Acetaminophen (Tylenol Extra Strength) 500 mg Tablet Active 1000 MG PO Daily August 02, 2019 12:00am calcitriol 0.63659 mg oral capsule (6 sources) Vitamin D3 Analog Start: 01-20-2019 End: 08-02-2019 Calcitriol (Rocaltrol) 0.25 mcg Capsule Discontinued 0.25 MCG PO MoWeFr@0900 12 January 20, 2019 12:00am August 02, 2019 5:53pm calcium carbonate 500 mg chewable tablet (6 sources) Start: 01-19-2019 End: 08-02-2019 take 1 [...] IV syringe cephalexin 500 mg oral capsule (18 sources) Cephalosporin Antibacterial Start: 04-01-2022 End: 06-05-2022 [...] 2019 5:51pm ciprofloxacin 250 mg oral tablet (6 sources) Quinolone Antimicrobial Start: 05-15-2020 End: 04-01-2022 take 1 tablet by mouth every twelve hours Ciprofloxacin Hcl (Cipro) 250 mg tablet Discontinued 250 MG PO Q12H 6 3 May 15, 2020 12:00am April 01, 2022 7:03am ergocalciferol 1.25 mg oral capsule (6 sources) Provitamin D2 Compound Start: 01-20-2019 End: 08-02-2019 take 01945 [IU] by mouth every month Ergocalciferol (Vitamin D2) Discontinued 71341 UNIT PO every month January 20, 2019 12:00am August 02, 2019 5:53pm febuxostat 40 mg oral tablet (15 sources) Xanthine Oxidase Inhibitor Start: 08-02-2019 End: 03-15-2024 Febuxostat (Uloric) 40 mg Tablet Discontinued 20 MG PO Every morning August 02, 2019 12:00am March 15, 2024 5:37pm take 0.5 tablet by mouth once da larissa Uloric 40 MG 1/2 tablet Orally Once a day Active hydroCHLOROthiazide 12.5 mg / lisinopril 20 mg oral tablet (6 sources) Thiazide Diuretic, Angiotensin Converting Enzyme Inhibitor Start: 01-19-2019 End: 08-05-2019 take 1 tablet by mouth once daily Lisinopril-Hydrochlorothiazide Discontinued 1 TAB PO Daily January 19, 2019 12:00am August 05, 2019 4:31pm Iopamidol (1 source) Radiographic Contrast Agent Start: 08-02-2019 End: 08-02-2019 iopamidol (ISOVUE-370) 76 % injection 100 mL lisinopril 20 mg oral tablet (20 sources) Angiotensin Converting Enzyme Inhibitor Start: 08-05-2019 End: 03-15-2024 take 20 mg by mouth once daily in the morning Lisinopril Discontinued 20 MG PO Every morning June 05, 2022 9:09am March 15, 2024 5:37pm LISINOPRIL PO Ta ke by mouth 0 Active sodium bicarbonate 650 mg oral tablet (15 sources) Start: 04-01-2022 End: 03-15-2024 take 650 mg by mouth twice daily Sodium Bicarbonate Discontinued 650 MG PO Twice daily April 01, 2022 12:00am March 15, 2024 5:37pm Problems Active Problems Problem Classification Problem Date Documented Date Episodic/Chronic Acute and chronic tonsillitis (10 sources) Amygdalolith; Translations: [Other chronic diseases of tonsils and adenoids] 03-15-2024 Chronic Acute and unspecified renal failure (1 source) Chronic renal failure; Translations: [Chronic renal failure, stage 4 (severe) ([facility])] Chronic Acute and unspecified renal failure (6 sources) Injury of kidney; Translations: [Acute kidney failure, unspecified] 01-19-2019 Episodic Acute myocardial infarction (6 sources) Myocardial infarction; Translations: [Non-ST elevation (NSTEMI) myocardial infarction] 08-03-2019 Chronic Anxiety disorders (1 source) Anxiety; Translations: [Anxiety disorder, unspecified] 03-15-2024 Chronic Chronic kidney disease (20 sources) Chronic kidney disease stage 4; Translations: [Chronic kidney disease, stage 4 (severe)] Onset: 2 Resolved: 2 Chronic Deficiency and other anemia (15 sources) Anemia of renal disease; Translations: [Anemia in chronic kidney disease] 01-19-2019 Chronic Deficiency and other anemia (8 sources) Anemia in chronic kidney disease; Translations: [ANEMIA IN CHRONIC KIDNEY DISEASE] Onset: 1 Resolved: 2 Chronic Deficiency and other anemia (10 sources) Iron deficiency anemia; Translations: [Iron deficiency anemia, unspecified] 03-15-2024 Episodic Disorders of lipid metabolism (2 sources) Hyperlipidemia, unspecified; Translations: [Hyperlipidemia, unspecified] Onset: 3 Chronic Fever of unknown origin (6 sources) Fever; Translations: [Fever, unspecified] 05-22-2020 Episodic Genitourinary congenital anomalies (20 sources) Polycystic kidney disease, adult type; Translations: [Polycystic kidney, adult type] Onset: 2 Resolved: 2 Chronic Genitourinary congenital anomalies (1 source) Multiple renal cysts; Translations: [Polycystic kidney disease] Episodic Genitourinary symptoms and ill-defined conditions (8 sources) Dysuria; Translations: [Dysuria] Onset: 4 01-19-2019 Episodic Gout and other crystal arthropathies (14 sources) Gout; Translations: [Gout, unspecified] Onset: 2 Resolved: 2 Chronic Hypertension with complications and secondary hypertension (20 sources) Chronic kidney disease due to hypertension; Translations: [Hypertensive chronic kidney disease with stage 1 through stage 4 chronic kidney disease, or unspecified chronic kidney disease] Onset: 1 Resolved: 2 Chronic Intrauterine hypoxia and asphyxia (1 source) Metabolic acidemia, unspecified Episodic Nutritional deficiencies (6 sources) Vitamin D deficiency; Translations: [Vitamin D deficiency, unspecified] 01-20-2019 Chronic Other aftercare (2 sources) Encounter for aftercare following kidney transplant; Translations: [Encounter for aftercare following kidney transplant] Onset: 3 Chronic Other circulatory disease (7 sources) Acquired arteriovenous fistula aneurysm; Translations: [Arteriovenous fistula, acquired] Chronic Other circulatory disease (1 source) Ecchymosis; Translations: [Hemorrhage, not elsewhere classified] 06-20-2022 Episodic Other circulatory disease (2 sources) Hemorrhage, not elsewhere classified; Translations: [Postoperative ecchymosis] 06-20-2022 Episodic Other connective tissue disease (3 sources) Pain in left arm; Translations: [Pain in left arm] 06-20-2022 Episodic Other diseases of kidney and ureters (16 sources) Secondary hyperparathyroidism; Translations: [Secondary hyperparathyroidism of renal origin] 01-19-2019 Chronic Other diseases of kidney and ureters (4 sources) Secondary hyperparathyroidism of renal origin; Translations: [SEC HYPERPARATHYROIDISM RENAL ORIGN] Onset: 2 Resolved: 2 Chronic Other inflammatory condition of skin (6 sources) Pruritus of skin; Translations: [Pruritus, unspecified] 08-04-2019 Episodic Other nutritional; endocrine; and metabolic disorders (6 sources) Hyperuricemia; Translations: [Hyperuricemia without signs of inflammatory arthritis and tophaceous disease] 01-19-2019 Episodic Ovarian cyst (4 sources) Unspecified ovarian cyst, left side; Translations: [UNSPECIFIED OVARIAN CYST LEFT SIDE] Onset: 2 Episodic Septicemia (except in labor) (7 sources) Sepsis; Translations: [Sepsis due to urinary tract infection] 08-03-2019 Episodic Unclassified (2 sources) Kidney Follow-up; Translations: [Kidney Follow-up] Onset: 3 Unclassified (1 source) Encounter for screening mammogram for malignant neoplasm of breast; Translations: [Encounter for screening mammogram for malignant neoplasm of breast] Onset: 3 Urinary tract infections (20 sources) Acute cystitis; Translations: [Urinary tract infectious disease] 05-15-2020 Episodic Past or Other Problems Problem Classification Problem Date Documented Da te Episodic/Chronic Diabetes mellitus without complication (2 sources) Impaired fasting glucose; Translations: [Impaired fasting glucose] Onset: 08-26-2023 Episodic Fluid and electrolyte disorders (3 sources) Acidosis; Translations: [ACIDOSIS] Onset: 12-06-2021 Resolved: 05-02-2022 Episodic Other aftercare (2 sources) Other manager terminal (current) drug therapy; Translations: [Other intermediate (current) drug therapy] Onset: 06-28-2023 Episodic Other non-traumatic joint disorders (1 source) Pain in unspecified joint; Translations: [Pain in unspecified joint] Onset: 11-06-2023 Episodic Other screening for suspected conditions (not mental disorders or infectious disease) (1 source) Encounter for screening for malignant neoplasm of colon Onset: 02-26-2022 Resolved: 02-26-2022 Episodic Otitis media and related conditions (1 source) Otitis media, unspecified, bilateral Onset: 04-30-2022 Resolved: 04-30-2022 Episodic Results Test Name Value Interpretation Reference Range Facility Urine Cultureon 03-15-2024 Bacteria identified Cx Nom (U) ORGANISM: Escherichia coli (MDRO) (O:ESCCOLMDRO) [place] Count >100,000 Aerobic CODI Charge (NMIC56) SUSCEPTIBILITY ORGANISM: O:ESCCOLMDRO ANTIBIOTIC INTERPRETATION CODI Amikacin S <16 Amoxacillin/K Clavulanate S <8 Ampicillin R >16 Ampicillin/Sulbactam R >16 Aztreonam S <4 Cefazolin S 4 Cefepime S <2 Ceftazidime S <1 Ceftazidime/Avibactam S <4 Ceftolozane/Tazobactam S <2 Ceftriaxone S <1 Cefuroxime S <4 Ciprofloxacin R >2 Ertapenem S <0.5 Gentamicin S <2 Levofloxacin R >4 Meropenem S <1 Meropenem/Vaborbactam S <2 Nitrofurantoin S <32 Piperacillin/Tazobactam S <8 Tetracycline R >8 Tigecycline S <2 Tobramycin S 4 Trimethoprim/Sulfamethoxa zole R >2 S = SUSCEPTIBLE I = INTERMEDIATE R = RESISTANT BLANK = DATA NOT AVAILABLE, OR DRUG NOT ADVISABLE OR TESTED R* = RESISTANCE DUE TO EXTENDED SPECTRUM BETA-LACTAMASES ESBL = EXTENDED SPECTRUM BETA-LACTAMASE TFG = THYMIDINE-DEPENDENT STRAIN TERRIE = BETA-LACTAMASE POSITIVE IB = INDUCIBLE BETA-LACTAMASE. APPEARS IN PLACE OF 'S' WITH SPECIES KNOWN TO POSSESS INDUCIBLE BETA-LACTAMASES. POTENTIALLY THEY MAY BECOME RESISTANT TO ALL B-LACTAM DRUGS. PERFORMED BY: [place] [id number] PATHOLOGIST DRUGLESS DOCTOR ANAHY MCKEE M.D. Normal [facility] Comment on above: Performed By: #### C UU #### [address] Documentationon 03-03-2024 Documentation [id number] Antonio Puri i 1975 F Date Provider Department Center 03/03/2024 JOSE RAFAEL AUGUST None Family History Problem Relation Age of Onset Fibromyalgia Mother Heart disease Father Hypertension Sister Polycystic kidney disease Sister Hypertension Brother Polycystic kidney disease Brother Family Status - Relation Status Age at Mother Father Sister Brother Normal [facility] Follow-Upon 12-23-2023 Follow-Up [id number] Antonio Puri i 1975 F Date Provider Department Center 12/23/2023 Camron-MUNIRA PHAN TXP None Family History Problem Relation Age of Onset Fibromyalgia Mother Heart disease Father Hypertension Sister Polycystic kidney disease Sister Hypertension Brother Polycystic kidney disease Brother Family Status - Relation Status Age at Mother Father Sister Brother Level of Service:75142 HI OFFICE/OUTPATIENT ESTABLISHED MOD MDM 30 MIN Reason for Visit and Comments: Kidney Follow-up [] - Pt has questions about her lab work. Normal [facility] PAPITO Antinuclear Antibodieson 11-06-2023 Antinuclear Abs, IFA Negative Normal . [facility] Comment on above: Result Comment: Nega tive <1:80 Borderline 1:80 Positive >1:80 ICAP nomenclature: AC-0 For more information about Hep-2 cell patterns use ANApatterns.org, the official website for the International Consensus on Antinuclear Antibody (PAPITO) Patterns (ICAP). Performed at: - [facility] [address] [id number] Porcelain Enamel Sprayer: Gabriel Whitman PhD, Phone: [phone] PERFORMED BY: [place] [id number] PATHOLOGIST DRUGLESS DOCTOR ANAHY MCKEE M.D. Performed By: #### C K, CRP, ESR, CBC, CMP #### [facility] [address] [place] [address] [place] #### PAPITO #### [facility] , Alanine aminotransferase [En zymatic activity/volume] in Serum or PlasmaOrdered By: Perri Ceja on 11-06-2023 ALT [Catalytic activity/Vol] 20 U/L Normal [facility] Comment on above: Performed By: #### C K, CRP, ESR, CBC, CMP #### [facility] [address] [place] [address] [place] #### PAPITO #### [facility] , Albumin [Mass/volume] in Ser um or Plasma by Bromocresol green (BCG) dye binding methoOrdered By: Perri Ceja on 11-06-2023 Albumin BCG dye [Mass/Vol] 4.7 g/dL 3.5-5.7 [facility] Alkaline phosphatase [Enzyma tic activity/volume] in Serum or PlasmaOrdered By: Perri Ceja on 11-06-2023 ALP [Catalytic activity/Vol] 96 U/L Normal 34-104 [facility] Comment on above: Performed By: #### C K, CRP, ESR, CBC, CMP #### [place] [address] [place] #### PPAITO #### [facility] , Aspartate aminotransferase [ Enzymatic activity/volume] in Serum or PlasmaOrdered By: Perri Ceja on 11-06-2023 AST [Catalytic activity/Vol] 16 U/L Normal 13-39 [facility] Comment on above: Performed By: #### C K, CRP, ESR, CBC, CMP #### [place] [address] [place] #### PAPITO #### [facility] , Automated basophil %Ordered By: Perri Ceja on 11-06-2023 Basophils/100 WBC (Bld) 0.7 % Normal . [facility] Comment on above: Performed By: #### C K, CRP, ESR, CBC, CMP #### [facility] [address] [place] [address] [place] #### PAPITO #### [facility] , Automated basophil countOrde red By: Perri Ceja on 11-06-2023 Basophils (Bld) [#/Vol] 0.1 10*3/uL Normal 0.0-0.2 [facility] Comment on above: Performed By: #### C K, CRP, ESR, CBC, CMP #### [place] [address] [place] #### PAPITO #### [facility] , Automated blood monocyte cou ntOrdered By: Perri Ceja on 11-06-2023 Monocytes (Bld) [#/Vol] 0.6 10*3/uL Normal 0.0-0.8 [facility] Comment on above: Performed By: #### C K, CRP, ESR, CBC, CMP #### [place] [address] [place] #### PAPITO #### [facility] , Automated eosinophil %Ordere d By: Perri Ceja on 11-06-2023 Eosinophils/100 WBC (Bld) 3.0 % Normal . [facility] Comment on above: Performed By: #### C K, CRP, ESR, CBC, CMP #### [place] [address] [place] #### PAPITO #### [facility] , Automated eosinophil countOr dered By: Perri Ceja on 11-06-2023 Eosinophils (Bld) [#/Vol] 0.3 10*3/uL Normal 0.0-0.45 [facility] Comment on above: Performed By: #### C K, CRP, ESR, CBC, CMP #### [place] [address] [place] #### PAPITO #### [facility] , Automated monocyte %Ordered By: Perri Ceja on 11-06-2023 Monocytes/100 WBC (Bld) 6.6 % Normal . [facility] Comment on above: Performed By: #### C K, CRP, ESR, CBC, CMP #### [place] [address] [place] #### PAPITO #### [facility] , Automated neutrophil %Ordere d By: Perri Ceja on 11-06-2023 Neutrophils/100 WBC (Bld) 72.1 % Normal . [facility] Comment on above: Performed By: #### C K, CRP, ESR, CBC, CMP #### [place] [address] [place] #### PAPITO #### [facility] , Bilirubin.total [Mass/volume ] in Serum or PlasmaOrdered By: Perri Ceja on 11-06-2023 Bilirubin [Mass/Vol] 0.4 mg/dL Normal 0.3-1.0 [facility] Comment on above: Performed By: #### C K, CRP, ESR, CBC, CMP #### [facility] [address] [place] [address] #### PAPITO #### [facility] , C reactive protein [Mass/vol ume] in Serum or PlasmaOrdered By: Perri Ceja on 11-06-2023 CRP [Mass/Vol] 2.0 mg/dL 0.0-0.5 [facility] C-Reactive Proteinon 024 C-Reactive Protein 2.0 mg/dL High 0.0-0.5 [facility] Comment on above: Result Comment: PERF ORMED BY: [place] [address] PATHOLOGIST DRUGLESS DOCTOR ANAHY MCKEE M.D. Performed By: #### C K, CRP, ESR, CBC, CMP #### [facility] [address] [place] [address] #### PAPITO #### [facility] , Calcium [Mass/volume] in Ser um or PlasmaOrdered By: Perri Ceja on 11-06-2023 Calcium [Mass/Vol] 10.3 mg/dL Normal 8.6-10.3 [facility] Comment on above: Performed By: #### C K, CRP, ESR, CBC, CMP #### [facility] [address] [place] [address] [place] #### PAPITO #### [facility] , Carbon dioxide, total [Moles /volume] in Serum or PlasmaOrdered By: Perri Ceja on 11-06-2023 CO2 [Moles/Vol] 26.1 mmol/L Normal 21.0-31.0 [facility] Comment on above: Performed By: #### C K, CRP, ESR, CBC, CMP #### [facility] [address] [place] [address] [place] #### PAPITO #### [facility] , Chloride [Moles/volume] in S aislinn or PlasmaOrdered By: Perri Ceja on 11-06-2023 Chloride [Moles/Vol] 104 mmol/L Normal 98-107 [facility] Comment on above: Performed By: #### C K, CRP, ESR, CBC, CMP #### [facility] [address] [place] [address] [place] #### PAPITO #### [facility] , Complete Blood Count Auto Di ffon 11-06-2023 Mean Corpuscular HGB Conc 33.6 g/dL Normal 32.0-35.0 [facility] Comment on above: Performed By: #### C K, CRP, ESR, CBC, CMP #### [facility] [address] [place] [address] [place] #### PAPITO #### [facility] , NRBC% 0.1 /100{WBC} Normal 0-0.5 [facility] Comment on above: Performed By: #### C K, CRP, ESR, CBC, CMP #### [place] [address] [place] #### PAPITO #### [facility] , Comprehensive Metabolic Pane jonathan 11-06-2023 Albumin [Mass/Vol] 4.7 g/dL Normal 3.5-5.7 [facility] Comment on above: Performed By: #### C K, CRP, ESR, CBC, CMP #### [place] [address] [place] #### PAPITO #### [facility] , GFR/1.73 sq M.predicted MDRD (S/P/Bld) [Vol rate/Area] 57.919 mL/min/{1.73_m2} Normal [facility] Comment on above: Performed By: #### C K, CRP, ESR, CBC, CMP #### [address] #### PAPITO #### [facility] , Creatine kinase [Enzymatic a ctivity/volume] in Serum or PlasmaOrdered By: Perri Ceja on 11-06-2023 CK [Catalytic activity/Vol] 30 U/L Normal 30-223 [facility] Comment on above: Result Comment: PERF ORMED BY: [place] [id number] PATHOLOGIST DRUGLESS DOCTOR ANAHY MCKEE M.D. Performed By: #### C K, CRP, ESR, CBC, CMP #### [address] #### PAPITO #### [facility] , Creatinine [Mass/volume] in Serum or PlasmaOrdered By: Perri Ceja on 11-06-2023 Creatinine [Mass/Vol] 1.17 mg/dL Normal 0.60-1.20 [facility] Comment on above: Performed By: #### C K, CRP, ESR, CBC, CMP #### [address] #### PAPITO #### [facility] , Erythrocyte Sedimentation Ra mathieu 11-06-2023 ESR (Bld) [Velocity] 49 mm/h High 0-19 [facility] Comment on above: Result Comment: PERF ORMED BY: [place] [id number] PATHOLOGIST DRUGLESS DOCTOR ANAHY MCKEE M.D. Performed By: #### C K, CRP, ESR, CBC, CMP #### [place] [address] [place] #### PAPITO #### [facility] , Erythrocyte distribution wid th [Ratio] by Automated countOrdered By: Perri Ceja on 11-06-2023 Erythrocyte distribution width (RBC) [Ratio] 15.3 % Normal 11.9-15.3 [facility] Comment on above: Performed By: #### C K, CRP, ESR, CBC, CMP #### [place] [address] [place] #### PAPITO #### [facility] , Erythrocyte sedimentation ra te by Photometric methodOrdered By: Perri Ceja on 11-06-2023 ESR Photometric method (Bld) [Velocity] 49 mm/hr 0-19 [facility] Erythrocytes [#/volume] in B lood by Automated countOrdered By: Perri Ceja on 11-06-2023 RBC (Bld) [#/Vol] 4.60 10*6/uL Normal 3.60-5.00 [facility] Comment on above: Performed By: #### C K, CRP, ESR, CBC, CMP #### [place] [address] [place] #### PAPITO #### [facility] , Glucose [Mass/volume] in Ser um or PlasmaOrdered By: Perri Ceja on 11-06-2023 Glucose [Mass/Vol] 91 mg/dL Normal 70-100 [facility] Comment on above: ADA recommended refe rence rangeRandom Glucose Reference Range is dependent on time and content of last meal. Glucose of more than 200 mg/dL in a nonstressed, ambulatory subject supports the diagnosis of Diabetes Mellitus. Result Comment: [place] om Glucose Reference Range is dependent on time and content of last meal. Glucose of more than 200 mg/dL in a nonstressed, ambulatory subject supports the diagnosis of Diabetes Mellitus. ADA recommended reference range Performed By: #### C K, CRP, ESR, CBC, CMP #### [facility] [address] [place] [address] [place] #### PAPITO #### [facility] , Hematocrit [Volume Fraction] of Blood by Automated countOrdered By: Perri Ceja on 11-06-2023 Hematocrit (Bld) [Volume fraction] 38.9 % Normal 34.0-46.4 [facility] Comment on above: Performed By: #### C K, CRP, ESR, CBC, CMP #### [facility] [address] [place] [address] [place] #### PAPITO #### [facility] , Hemoglobin [Mass/volume] in BloodOrdered By: Perri Ceja on 11-06-2023 Hemoglobin (Bld) [Mass/Vol] 13.1 g/dL Normal 11.8-15.4 [facility] Comment on above: Performed By: #### C K, CRP, ESR, CBC, CMP #### [facility] [address] [place] [address] [place] #### PAPITO #### [facility] , Leukocytes [#/volume] correc noah for nucleated erythrocytes in Blood by Automated counOrdered By: Perri Ceja on 11-06-2023 WBC corrected for nucl RBC Auto (Bld) [#/Vol] 8.8 10*3/uL 3.8-11.6 [facility] Leukocytes [#/volume] in Blo od by Automated countOrdered By: Perri Ceja on 11-06-2023 WBC (Bld) [#/Vol] 8.8 10*3/uL Normal 3.8-11.6 [facility] Comment on above: Performed By: #### C K, CRP, ESR, CBC, CMP #### [place] [address] [place] #### PAPITO #### [facility] , Lymphocytes [#/volume] in Bl ood by Automated countOrdered By: Perri Ceja on 11-06-2023 Lymphocytes (Bld) [#/Vol] 1.5 10*3/uL Normal 1.00-4.8 [facility] Comment on above: Performed By: #### C K, CRP, ESR, CBC, CMP #### [facility] [address] [place] [address] [place] #### PAPITO #### [facility] , Lymphocytes/100 leukocytes i n Blood by Automated countOrdered By: Perri Ceja on 11-06-2023 Lymphocytes/100 WBC (Bld) 17.6 % Normal . [facility] Comment on above: Performed By: #### C K, CRP, ESR, CBC, CMP #### [facility] [address] [place] [address] [place] #### PAPITO #### [facility] , MCH [Entitic mass] by Automa noah countOrdered By: Perri Ceja on 11-06-2023 MCH (RBC) [Entitic mass] 28.4 pg Normal 24.7-34.3 [facility] Comment on above: Performed By: #### C K, CRP, ESR, CBC, CMP #### [place] [address] [place] #### PAPITO #### [facility] , MCHC Auto (RBC) [Mass/Vol]Or dered By: Perri Ceja on 11-06-2023 MCHC (RBC) [Mass/Vol] 33.6 g/dL 32.0-35.0 [facility] MCV [Entitic volume] by Auto mated countOrdered By: Perri Ceja on 11-06-2023 MCV (RBC) [Entitic vol] 84.6 fL Normal 80-100 [facility] Comment on above: Performed By: #### C K, CRP, ESR, CBC, CMP #### [address] #### PAPITO #### [facility] , Neutrophils [#/volume] in Bl ood by Automated countOrdered By: Perri Ceja on 11-06-2023 Neutrophils (Bld) [#/Vol] 6.3 10*3/uL Normal 1.8-7.7 [facility] Comment on above: Performed By: #### C K, CRP, ESR, CBC, CMP #### [facility] [address] [place] [address] [place] #### PAPITO #### [facility] , No Panel InformationOrdered By: Perri Ceja on 11-06-2023 Estimated GFR (CKD-EPI) 57.919 mL/Min [facility] Creatinine Clearance (Chem N/A [facility] Nucleated erythrocytes [Pres ence] in Blood by Automated countOrdered By: Perri Ceja on 11-06-2023 Nucleated RBC Auto Ql (Bld) 0.1 /100{WBC} 0-0.5 [facility] Platelet mean volume [Entiti c volume] in Blood by Automated countOrdered By: Perri Ceja on 11-06-2023 Platelet mean volume (Bld) [Entitic vol] 6.9 fL Normal 6.3-10.7 [facility] Comment on above: Performed By: #### C K, CRP, ESR, CBC, CMP #### [facility] [address] [place] [address] [place] #### PAPITO #### [facility] , Platelets [#/volume] in Bloo d by Automated countOrdered By: Perri Ceja on 11-06-2023 Platelets (Bld) [#/Vol] 393 10*3/uL Normal 150-450 [facility] Comment on above: Performed By: #### C K, CRP, ESR, CBC, CMP #### [facility] [address] [place] [address] [place] #### PAPITO #### [facility] , Potassium [Moles/volume] in Serum or PlasmaOrdered By: Perri Ceja on 11-06-2023 Potassium [Moles/Vol] 3.8 mmol/L Normal 3.5-5.1 [facility] Comment on above: Performed By: #### C K, CRP, ESR, CBC, CMP #### [facility] [address] [place] [address] [place] #### PAPITO #### [facility] , Protein [Mass/volume] in Ser um or PlasmaOrdered By: Perri Ceja on 11-06-2023 Protein [Mass/Vol] 7.7 g/dL Normal 6.4-8.9 [facility] Comment on above: Performed By: #### C K, CRP, ESR, CBC, CMP #### [place] [address] [place] #### PAPITO #### [facility] , Serum globulin measurement b y calculation (mass/volume)Ordered By: Preri Ceja on 11-06-2023 Globulin (S) [Mass/Vol] 3.0 g/dL [facility] Comment on above: Performed By: #### C K, CRP, ESR, CBC, CMP #### [place] [address] [place] #### PAPITO #### [facility] , Serum or plasma albumin/glob ulin mass ratioOrdered By: Perri Ceja on 11-06-2023 Albumin/Globulin [Mass ratio] 1.6 {ratio} [facility] Comment on above: Performed By: #### C K, CRP, ESR, CBC, CMP #### [address] #### PAPITO #### [facility] , Serum or plasma anion gap de terminationOrdered By: Perri Ceja on 11-06-2023 Anion gap [Moles/Vol] 12.7 mmol/L Normal 6.0-15.0 [facility] Comment on above: Performed By: #### C K, CRP, ESR, CBC, CMP #### [place] [address] [place] #### PAPITO #### [facility] , Sodium [Moles/volume] in Ser um or PlasmaOrdered By: Perri Ceja on 11-06-2023 Sodium [Moles/Vol] 139 mmol/L Normal 136-145 [facility] Comment on above: Performed By: #### C K, CRP, ESR, CBC, CMP #### [place] [address] [place] #### PAPITO #### [facility] , Urea nitrogen [Mass/volume] in Serum or PlasmaOrdered By: Perri Ceja on 11-06-2023 Urea nitrogen [Mass/Vol] 17 mg/dL Normal 7-25 [facility] Comment on above: Performed By: #### C K, CRP, ESR, CBC, CMP #### [facility] [address] #### PAPITO #### [facility] , Orders Onlyon 10-02-2023 Orders Only [id number] Antonio Puri i 1975 F Date Provider Department Center 10/02/2023 1971-LU STEPHENS TXP None Family History Problem Relation Age of Onset Fibromyalgia Mother Heart disease Father Hypertension Sister Polycystic kidney disease Sister Hypertension Brother Polycystic kidney disease Brother Family Status - Relation Status Age at Mother Father Sister Brother Normal [facility] Follow-Upon 09-01-2023 Follow-Up [id number] Antonio Puri i 1975 F Date Provider Department Center 09/01/2023 344-SUJIT BERNAL TXP None Family History Problem Relation Age of Onset Fibromyalgia Mother Heart disease Father Hypertension Sister Polycystic kidney disease Sister Hypertension Brother Polycystic kidney disease Brother Family Status - Relation Status Age at Mother Father Sister Brother Level of Service:10777 HI OFFICE/OUTPATIENT ESTABLISHED MOD MDM 30-39 MIN () Reason for Visit and Comments: Kidney Follow-up [] - Patient reports pain all over her body that comes and goes. She would like to discuss swelling in her feet. Normal [facility] BILIRUBIN, DIRECTon 08-26-20 23 Magnesium [Mass/Vol] 0.1 mg/dL Normal 0-0.2 [facility] Comment on above: Performed By: #### L [id number] #### [facility] ([facility]) [address] [place] [address] CBC WITH AUTO DIFFERENTIALon 08-26-2023 Basophils (Bld) [#/Vol] 0.05 10*3/uL Normal 0.00-0.20 [facility] Comment on above: Performed By: #### L [id number] #### [facility] ([facility]) [address] [place] [address] Basophils/100 WBC (Bld) 0.6 % Normal 0.0-1.0 [facility] Comment on above: Performed By: #### L [id number] #### [facility] ([facility]) [address] [place] [address] Eosinophils (Bld) [#/Vol] 0.20 10*3/uL Normal 0.00-0.50 [facility] Comment on above: Performed By: #### L [id number] #### [facility] ([facility]) [address] [place] [address] Eosinophils/100 WBC (Bld) 2.5 % Normal 0.0-6.0 [facility] Comment on above: Performed By: #### L [id number] #### [facility] ([facility]) [address] [place] [address] Erythrocyte distribution width (RBC) [Ratio] 14.4 % Normal 11.5-15.0 [facility] Comment on above: Performed By: #### L [id number] #### [facility] ([facility]) [address] [place] [address] ERYTHROCYTE MEAN CORPUSCULAR HEMOGLOBIN CONCENTRATION (G/DL) BY AUTOMATED 32.9 g/dL Normal 32.0-35.0 [facility] Comment on above: Performed By: #### L [id number] #### [facility] ([facility]) [address] [place] [address] Hematocrit (Bld) [Volume fraction] 40.4 % Normal 36.0-48.0 [facility] Comment on above: Performed By: #### L [id number] #### [facility] ([facility]) [address] [place] [address] Hemoglobin (Bld) [Mass/Vol] 13.3 g/dL Normal 12.0-15.0 [facility] Comment on above: Performed By: #### L [id number] #### [facility] ([facility]) [address] [place] [address] Immature granulocytes (Bld) [#/Vol] 0.06 10*3/uL Normal 0.00-0.20 [facility] Comment on above: Performed By: #### L [id number] #### [facility] ([facility]) [address] [place] [address] Immature granulocytes/100 WBC (Bld) 0.7 % Normal 0.0-1.0 [facility] Comment on above: Performed By: #### L [id number] #### [facility] ([facility]) [address] [place] [address] Lymphocytes (Bld) [#/Vol] 1.19 10*3/uL Low 1.20-4.00 [facility] Comment on above: Performed By: #### L [id number] #### [facility] ([facility]) [address] [place] [address] Lymphocytes/100 WBC (Bld) 14.6 % Low 20.0-45.0 [facility] Comment on above: Performed By: #### L [id number] #### [facility] ([facility]) [address] [place] [address] MCH (RBC) [Entitic mass] 28.4 pg Normal 27.0-33.0 [facility] Comment on above: Performed By: #### L [id number] #### [facility] ([facility]) [address] [place] [address] MCV (RBC) [Entitic vol] 86.1 fL Normal 82.0-98.0 [facility] Comment on above: Performed By: #### L [id number] #### [facility] ([facility]) [address] [place] [address] Monocytes (Bld) [#/Vol] 0.42 10*3/uL Normal 0.10-1.00 [facility] Comment on above: Performed By: #### L [id number] #### [facility] ([facility]) [address] [place] [address] Monocytes/100 WBC (Bld) 5.2 % Normal 5.0-12.0 [facility] Comment on above: Performed By: #### L [id number] #### [facility] ([facility]) [address] [place] [address] Neutrophils (Bld) [#/Vol] 6.22 10*3/uL Normal 1.60-7.60 [facility] Comment on above: Performed By: #### L [id number] #### [facility] ([facility]) [address] [place] [address] Neutrophils/100 WBC (Bld) 76.4 % High 40.0-72.0 [facility] Comment on above: Performed By: #### L [id number] #### [facility] ([facility]) [address] [place] [address] NRBC (PER 100 WBCS) BY AUTOMATED COUNT 0.0 % Normal 0 [facility] Comment on above: Performed By: #### L [id number] #### [facility] ([facility]) [address] [place] [address] PLATELETS (10*3/UL) IN BLOOD AUTOMATED COUNT 374 10*3/uL Normal 150-400 [facility] Comment on above: Performed By: #### L [id number] #### [facility] ([facility]) [address] [place] [address] RBC (Bld) [#/Vol] 4.69 10*6/uL Normal 3.80-5.00 [facility] Comment on above: Performed By: #### L [id number] #### [facility] ([facility]) [address] [place] [address] WBC (Bld) [#/Vol] 8.14 10*3/uL Normal 4.00-10.60 [facility] Comment on above: Performed By: #### L [id number] #### [facility] ([facility]) [address] [place] [address] COMPREHENSIVE METABOLIC PANE Jonathan 08-26-2023 Albumin [Mass/Vol] 4.7 g/dL Normal 3.5-5.7 [facility] Comment on above: Performed By: #### L [id number] ####[facility] ([facility])[address] [place] [address] ALP [Catalytic activity/Vol] 90 U/L Normal 34-104 [facility] Comment on above: Performed By: #### L [id number] ####[facility] ([facility])[address] [place] [address] ALT [Catalytic activity/Vol] 26 U/L Normal 7-52 [facility] Comment on above: Performed By: #### L [id number] ####[facility] ([facility])[address] [place] [address] Anion gap [Moles/Vol] 12 mmol/L Normal 7-20 [facility] Comment on above: Performed By: #### L [id number] ####[facility] ([facility])[address] [place] [address] AST [Catalytic activity/Vol] 22 U/L Normal 13-39 [facility] Comment on above: Performed By: #### L [id number] ####[facility] ([facility])[address] [place] [address] Bilirubin [Mass/Vol] 0.4 mg/dL Normal 0.3-1.0 [facility] Comment on above: Performed By: #### L [id number] ####[facility] ([facility])[address] [place] [address] Calcium [Mass/Vol] 9.6 mg/dL Normal 8.6-10.3 [facility] Comment on above: Performed By: #### L [id number] ####[facility] ([facility])[address] [place] [address] Chloride [Moles/Vol] 103 mmol/L Normal 98-107 [facility] Comment on above: Performed By: #### L [id number] ####[facility] ([facility])[address] [place] [address] CO2 [Moles/Vol] 26 mmol/L Normal 21-31 [facility] Comment on above: Performed By: #### L [id number] ####[facility] ([facility])[address] [place] [address] Creatinine [Mass/Vol] 1.12 mg/dL Normal 0.60-1.20 [facility] Comment on above: Performed By: #### L [id number] ####[facility] ([facility])[address] [place] [address] GLOMERULAR FILTRATION RATE ML/MIN/1.73 SQ M.PREDICTED 61.0 mL/min/1.73m*2 Normal >60.0 [facility] Comment on above: Result Comment: The [facility]???s estimated glomerular filtration rate (eGFR) will no [...] of individuals. Performed By: #### L [id number] ####[facility] ([facility])[address] [place] [address] Glucose [Mass/Vol] 125 mg/dL High 70-100 [facility] Comment on above: Performed By: #### L [id number] ####[facility] ([facility])[address] [place] [address] Potassium [Moles/Vol] 3.1 mmol/L Low 3.5-5.1 [facility] Comment on above: Performed By: #### L [id number] ####[facility] ([facility])[address] [place] [address] Protein [Mass/Vol] 7.4 g/dL Normal 6.0-8.3 [facility] Comment on above: Performed By: #### L [id number] ####[facility] ([facility])[address] [place] [address] Sodium [Moles/Vol] 138 mmol/L Normal 136-145 [facility] Comment on above: Performed By: #### L [id number] ####[facility] ([facility])[address] [place] [address] Urea nitrogen [Mass/Vol] 15 mg/dL Normal 7-25 [facility] Comment on above: Performed By: #### L [id number] ####[facility] ([facility])[address] [place] [address] UREA NITROGEN/CREATININE (MASS RATIO) IN SER/PLAS 13.4 Normal [facility] Comment on above: Performed By: #### L [id number] ####[facility] ([facility])[address] [place] [address] HEMOGLOBIN A1Con 08-26-2023 Glucose [Mass/Vol] 108 mg/dL Normal [facility] Comment on above: Performed By: #### L [id number] ####[facility] ([facility])[address] [place] [address] HbA1c (Bld) [Mass fraction] 5.4 % Normal 4.0-6.0 [facility] Comment on above: Performed By: #### L [id number] ####[facility] ([facility])[address] [place] [address] LIPID PANELon 08-26-2023 CHOL/HDL 4.7 mg/dL Normal [facility] Comment on above: Performed By: #### L [id number] #### [facility] T[facility]UE [facility]YPING (HISTOTRAC) [address] [place] [address] [place] Cholesterol [Mass/Vol] 198 mg/dL Normal 120-200 [facility] Comment on above: Performed By: #### L [id number] #### [facility] TISSUE TYP[facility] (HISTOTRAC) [address] [place] [address] [place] Magnesium [Mass/Vol] 248 mg/dL High 40-149 [facility] Comment on above: Result Comment: TRIG LYCERIDE REFERENCE RANGE: 20 YEARS AND OLDER CARDIOVASCULAR RISK LESS THAN 150 mg/dL LOW RISK 150 TO 199 mg/dL BORDERLINE RISK 200 mg/dL AND GREATER HIGH RISK Performed By: #### L [id number] #### [facility] TISSUE TYPING (HISTOTRAC) [address] Magnesium [Mass/Vol] 106 mg/dL Normal 0-160 [facility] Comment on above: Performed By: #### L [id number] #### [facility] TISSUE TYPING (HISTOTRAC) [address] [place] [address] [facility] Magnesium [Mass/Vol] 42 mg/dL Normal 23-92 [facility] Comment on above: Performed By: #### L [id number] #### [facility] TISSUE TYPING (HISTOTRAC) [address] [place], [place] [address] NON HDL CHOL. (LDL+VLDL) 156 Normal [facility] Comment on above: Performed By: #### L [id number] #### [facility] TISSUE TYPING (HISTOTRAC) [address] [place] [address] [facility] TOTAL VLDL-C 50 mg/dL High 0-40 [facility] Comment on above: Performed By: #### L [id number] #### [facility] TISSUE TYPING (HISTOTRAC) [address] [place] [address] [facility] Labon 08-26-2023 Lab [id number] Antonio Puri i 1975 F Date Provider Department Center 08/26/2023 2245-[facility] OPD LAB RESOURCE [facility] OPD [facility] Family History Problem Relation Age of Onset Fibromyalgia Mother Heart disease Father Hypertension Sister Polycystic kidney disease Sister Hypertension Brother Polycystic kidney disease Brother Family Status - Relation Status Age at Mother Father Sister Brother Normal [facility] MAGNESIUMon 08-26-2023 Magnesium [Mass/Vol] 1.5 mg/dL Low 1.9-2.7 [facility] Comment on above: Performed By: #### L [id number] #### [facility] ([facility]) [address] [place] [address] PHOSPHORUSon 08-26-2023 Magnesium [Mass/Vol] 2.9 mg/dL Normal 2.5-5.0 [facility] Comment on above: Performed By: #### L [id number] ####[facility] ([facility])[address] [place] [address] TACROLIMUS LEVELon Tacrolimus (Bld) [Mass/Vol] 9.2 ng/mL Normal 5.0-20.0 [facility] Comment on above: Result Comment: The [employer] Tacrolimus assay is a delayed one-step immunoassay for the quantitative determination of tacrolimus in human whole blood using the chemiluminescent microparticle immunoassay (CMIA) technology with flexible assay protocols, referred to as Chemiflex. Performed By: #### L [id number] #### [facility] TISSUE TYPING (HISTOTRAC) [address] URIC ACIDon 08-26-2023 Magnesium [Mass/Vol] 5.1 mg/dL Normal 2.3-6.6 [facility] Comment on above: Performed By: #### L [id number] #### [facility] ([facility]) [address] [place] [address] COMPREHENSIVE METABOLIC PANE Jonathan 08-06-2023 Albumin [Mass/Vol] 4.7 g/dL Normal 3.5-5.7 [facility] Comment on above: Performed By: #### L [id number] #### [facility] TISSUE TYPING (HISTOTRAC) [address] [place], [place] [address] ALP [Catalytic activity/Vol] 85 U/L Normal 34-104 [facility] Comment on above: Performed By: #### L [id number] #### [facility] TISSUE TYPING (HISTOTRAC) [address] [place] [address] [place] ALT [Catalytic activity/Vol] 25 U/L Normal 7-52 [facility] Comment on above: Performed By: #### L [id number] #### [facility] TISSUE TYPING (HISTOTRAC) [address] [place] [address] [facility] Anion gap [Moles/Vol] 14 mmol/L Normal 7-20 [facility] Comment on above: Performed By: #### L [id number] #### [facility] TISSUE TYPING (HISTOTRAC) [address] AST [Catalytic activity/Vol] 23 U/L Normal 13-39 [facility] Comment on above: Performed By: #### L [id number] #### [facility] TISSUE TYPING (HISTOTRAC) [address] [place], [place] [address] Bilirubin [Mass/Vol] 0.5 mg/dL Normal 0.3-1.0 [facility] Comment on above: Performed By: #### L [id number] #### [facility] T[facility]UE TYPING (HISTOTRAC) [address] [place], [place] [address] Calcium [Mass/Vol] 9.5 mg/dL Normal 8.6-10.3 [facility] Comment on above: Performed By: #### L [id number] #### [facility] TISSUE TYPING (HISTOTRAC) [address] [place], [place] [address] Chloride [Moles/Vol] 105 mmol/L Normal 98-107 [facility] Comment on above: Performed By: #### L [id number] #### [facility] TISSUE TYPING (HISTOTRAC) [address] [place], [place] [address] CO2 [Moles/Vol] 21 mmol/L Normal 21-31 [facility] Comment on above: Performed By: #### L [id number] #### [facility] TISSUE TYPING (HISTOTRAC) [address] [place] [address] [place] Creatinine [Mass/Vol] 1.23 mg/dL High 0.60-1.20 [facility] Comment on above: Performed By: #### L [id number] #### [facility] TISSUE TYPING (HISTOTRAC) [address] GLOMERULAR FILTRATION RATE ML/MIN/1.73 SQ M.PREDICTED 54.5 mL/min/1.73m*2 Low >60.0 [facility] Comment on above: Result Comment: The [facility]???s estimated glomerular filtration rate (eGFR) will no [...] group of individuals. Performed By: #### L [id number] #### [facility] TISSUE TYPING (HISTOTRAC) [address] [place] [address] [place] Glucose [Mass/Vol] 133 mg/dL High 70-100 [facility] Comment on above: Performed By: #### L [id number] #### [facility] TISSUE TYPING (HISTOTRAC) [address] [place] [address] [place] Potassium [Moles/Vol] 3.4 mmol/L Low 3.5-5.1 [facility] Comment on above: Performed By: #### L [id number] #### [facility] TISSUE TYPING (HISTOTRAC) [address] [place] [address] [place] Protein [Mass/Vol] 7.4 g/dL Normal 6.0-8.3 [facility] Comment on above: Performed By: #### L [id number] #### [facility] TISSUE TYPING (HISTOTRAC) [address] [place] [address] [place] Sodium [Moles/Vol] 137 mmol/L Normal 136-145 [facility] Comment on above: Performed By: #### L [id number] #### [facility] TISSUE TYPING (HISTOTRAC) [address] [place] [address] [place] Urea nitrogen [Mass/Vol] 14 mg/dL Normal 7-25 [facility] Comment on above: Performed By: #### L [id number] #### [facility] TISSUE TYPING (HISTOTRAC) [address] [place] [address] [place] UREA NITROGEN/CREATININE (MASS RATIO) IN SER/PLAS 11.4 Normal [facility] Comment on above: Performed By: #### L [id number] #### [facility] TISSUE TYPING (HISTOTRAC) [address] [place] [address] [place] Lab[place] 08-06-2023 Lab [id number] Khushi,Brand i 1975 F Date Provider Department Center 08/06/2023 2245-[facility] OPD LAB RESOURCE [facility] OPD [facility] Family History Problem Relation Age of Onset Fibromyalgia Mother Heart disease Father Hypertension Sister Polycystic kidney disease Sister Hypertension Brother Polycystic kidney disease Brother Family Status - Relation Status Age at Mother Father Sister Brother Normal [facility] Orders Onlyon 08-06-2023 Orders Only [id number] Khushi,Brand i 1975 F Date Provider Department Center 08/06/2023 3373-TAINA CLARKE TXP None Family History Problem Relation Age of Onset Fibromyalgia Mother Heart disease Father Hypertension Sister Polycystic kidney disease Sister Hypertension Brother Polycystic kidney disease Brother Family Status - Relation Status Age at Mother Father Sister Brother Normal [facility] SINGLE ANTIGEN CLASS Ion AB SCREEN COMMENTS No Class I donor spe cific antibody identified Normal [facility] Comment on above: Order Comment: To be used after initial monthly order expires Performed By: #### L [id number] #### [facility] ([facility]AKER) [address] [place] [address] CLASS I TESTED DATE [id number] Normal U [facility] Comment on above: Order Comment: To be used after initial monthly order expires Performed By: #### L [id number] #### [facility] LAB (BEAKER) [address] [place] [address] SINGLE ANTIGEN CLASS 1 TEST METHOD Class I Single Antigen Normal [facility] Comment on above: Order Comment: To be used after initial monthly order expires Performed By: #### L [id number] #### [facility] (BEAKER) [address] [place] [address] SINGLE ANTIGEN CLASS IIon AB SCREEN COMMENTS No Class II donor specific antibody identified Normal [facility] Comment on above: Order Comment: To be used after initial monthly order expires Performed By: #### L [id number] ####[facility] TISSUE TYPING (HISTOTRAC)[address] CLASS II TESTED DATE [facility] Comment on above: Order Comment: To be used after initial monthly order expires Performed By: #### L [id number] ####[facility] TISSUE TYPING (HISTOTRAC)[address] SIGNED BY Signed by Nelson escamilla CHT(ACHI) PARKER(ASCP), Validation Scientist Transplant Immunology [facility] Comment on above: Order Comment: To be used after initial monthly order expires Performed By: #### L [id number] ####[facility] TISSUE TYPING (HISTOTRAC)[address] [place], [place] [address] Result Comment: Clas s I Antigen Microbeads Performed By: #### L [id number] #### [facility] (BEAKER) [address] [place] [address] SINGLE ANTIGEN CLASS 2 TEST METHOD Class II Single Antigen Normal [facility] Comment on above: Order Comment: To be used after initial monthly order expires Result Comment: Clas s II Antigen Microbeads Performed By: #### L [id number] ####[facility] TISSUE TYPING (HISTOTRAC)[address] MM screening mammo BI w/CADo n 07-30-2023 MM screening mammo BI w/CAD [facility] [place] [address] Mammography Report Signed Patient: Mandeep Puri MR#: [id number] 15 : 1975 Acct:[id number] Age/Sex: 47 / F ADM Date: 07/30/23 Loc: ID Room: Type: [facility] Attending Dr: Referral Self Copies to: Ming Espinoza,DO SELF,REFERRAL Blake Hinojosa DO Ordering Provider: SELF,REFERRAL [...] mammogram. Impression dictated by: Evan Messina Jr., DSonOSon07/30/2023 4:05 PM Dictation Location: [facility] Transcribed By: [facility] 07/30/23 1605 Dictated By: Evan Messina Jr, DO 07/30/23 1604 Signed By: 07/30/23 1605 Normal [facility] CBC WITH AUTO DIFFERENTIALon 07-24-2023 Basophils (Bld) [#/Vol] 0.06 10*3/uL Normal 0.00-0.20 [facility] Comment on above: Performed By: #### L [id number] ####[facility] ([facility])[address] [place] [address] Basophils/100 WBC (Bld) 0.7 % Normal 0.0-1.0 [facility] Comment on above: Performed By: #### L [id number] ####[facility] ([facility])[address] [place] [address] Eosinophils (Bld) [#/Vol] 0.28 10*3/uL Normal 0.00-0.50 [facility] Comment on above: Performed By: #### L [id number] ####[facility] ([facility])[address] [facility] [place] [address] Eosinophils/100 WBC (Bld) 3.3 % Normal 0.0-6.0 [facility] Comment on above: Performed By: #### L [id number] ####[facility] (BEAKER)[address] [place] [address] Erythrocyte distribution width (RBC) [Ratio] 14.6 % Normal 11.5-15.0 [facility] Comment on above: Performed By: #### L [id number] ####[facility] (BEAKER)[address] [place] [address] ERYTHROCYTE MEAN CORPUSCULAR HEMOGLOBIN CONCENTRATION (G/DL) BY AUTOMATED 33.2 g/dL Normal 32.0-35.0 [facility] Comment on above: Performed By: #### L [id number] ####[facility] (BEAKER)[address] [place] [address] Hematocrit (Bld) [Volume fraction] 39.7 % Normal 36.0-48.0 [facility] Comment on above: Performed By: #### L [id number] ####[facility] (BEAKER)[address] [place] [address] Hemoglobin (Bld) [Mass/Vol] 13.2 g/dL Normal 12.0-15.0 [facility] Comment on above: Performed By: #### L [id number] ####[facility] (BEAKER)[address] [place] [address] Immature granulocytes (Bld) [#/Vol] 0.09 10*3/uL Normal 0.00-0.20 [facility] Comment on above: Performed By: #### L [id number] ####[facility] (BEAKER)[address] [place] [address] Immature granulocytes/100 WBC (Bld) 1.1 % High 0.0-1.0 [facility] Comment on above: Performed By: #### L [id number] ####[facility] (BEAKER)[address] [place] [address] Lymphocytes (Bld) [#/Vol] 1.41 10*3/uL Normal 1.20-4.00 [facility] Comment on above: Performed By: #### L [id number] ####[facility] (BEAKER)[address] [place] [address] Lymphocytes/100 WBC (Bld) 16.5 % Low 20.0-45.0 [facility] Comment on above: Performed By: #### L [id number] ####[facility] (BEBANNER)[address] [place] [address] MCH (RBC) [Entitic mass] 28.9 pg Normal 27.0-33.0 [facility] Comment on above: Performed By: #### L [id number] ####[facility] (BEAKER)[address] [place] [address] MCV (RBC) [Entitic vol] 86.9 fL Normal 82.0-98.0 [facility] Comment on above: Performed By: #### L [id number] ####[facility] (BEAKER)[address] [place] [address] Monocytes (Bld) [#/Vol] 0.44 10*3/uL Normal 0.10-1.00 [facility] Comment on above: Performed By: #### L [id number] ####[facility] (BEAKER)[address] [place] [address] Monocytes/100 WBC (Bld) 5.1 % Normal 5.0-12.0 [facility] Comment on above: Performed By: #### L [id number] ####[facility] (BEAKER)[address] [place] [address] Neutrophils (Bld) [#/Vol] 6.28 10*3/uL Normal 1.60-7.60 [facility] Comment on above: Performed By: #### L [id number] ####[facility] (BEAKER)[address] [place] [address] Neutrophils/100 WBC (Bld) 73.3 % High 40.0-72.0 [facility] Comment on above: Performed By: #### L [id number] ####[facility] (BEAKER)[address] [place] [address] NRBC (PER 100 WBCS) BY AUTOMATED COUNT 0.0 % Normal 0 [facility] Comment on above: Performed By: #### L [id number] ####[facility] ([facility]AN[facility])[address] [place] [address] PLATELETS (10*3/UL) IN BLOOD AUTOMATED COUNT 371 10*3/uL Normal 150-400 [facility] Comment on above: Performed By: #### L [id number] ####[facility] ([facility])[address] [place] [address] RBC (Bld) [#/Vol] 4.57 10*6/uL Normal 3.80-5.00 [facility] Comment on above: Performed By: #### L [id number] ####[facility] ([facility])[address] [place] [address] WBC (Bld) [#/Vol] 8.56 10*3/uL Normal 4.00-10.60 [facility] Comment on above: Performed By: #### L [id number] ####[facility] ([facility]ANNER)[address] [place] [address] Labon 07-24-2023 Lab [id number] Antonio Puri i 1975 F Date Provider Department Center 07/24/2023 2245-[facility] OPD LAB RESOURCE [facility] OPD [facility] Family History Problem Relation Age of Onset Fibromyalgia Mother Heart disease Father Hypertension Sister Polycystic kidney disease Sister Hypertension Brother Polycystic kidney disease Brother Family Status - Relation Status Age at Mother Father Sister Brother Normal [facility] Orders Onlyon 07-24-2023 Orders Only [id number] Antonio Puri i 1975 F Date Provider Department Center 07/24/2023 1971-LU STEPHENS TXP None Family History Problem Relation Age of Onset Fibromyalgia Mother Heart disease Father Hypertension Sister Polycystic kidney disease Sister Hypertension Brother Polycystic kidney disease Brother Family Status - Relation Status Age at Mother Father Sister Brother Normal [facility] BASIC METABOLIC PANELon 07-06 Anion gap [Moles/Vol] 16 mmol/L Normal 7-20 [facility] Comment on above: Performed By: #### L [id number] ####[facility] (BEAKER)[address] [place] [address] Calcium [Mass/Vol] 9.7 mg/dL Normal 8.6-10.3 [facility] Comment on above: Performed By: #### L [id number] ####[facility] (BEAKER)[address] [place] [address] Chloride [Moles/Vol] 104 mmol/L Normal 98-107 [facility] Comment on above: Performed By: #### L [id number] ####[facility] (BEAKER)[address] [place] [address] CO2 [Moles/Vol] 23 mmol/L Normal 21-31 [facility] Comment on above: Performed By: #### L [id number] ####[facility] (BEAKER)[address] [place] [address] Creatinine [Mass/Vol] 1.18 mg/dL Normal 0.60-1.20 [facility] Comment on above: Performed By: #### L [id number] ####[facility] (BEAKER)[address] [place] [address] GLOMERULAR FILTRATION RATE ML/MIN/1.73 SQ M.PREDICTED 57.3 mL/min/1.73m*2 Low >60.0 [facility] Comment on above: Result Comment: The [facility]???s estimated glomerular filtration rate (eGFR) will no [...] of individuals. Performed By: #### L [id number] ####[facility] ([facility])[address] [place] [address] Glucose [Mass/Vol] 134 mg/dL High 70-100 [facility] Comment on above: Performed By: #### L [id number] ####[facility] ([facility])[address] [place] [address] Potassium [Moles/Vol] 3.5 mmol/L Normal 3.5-5.1 [facility] Comment on above: Performed By: #### L [id number] ####[facility] ([facility])[address] [place] [address] Sodium [Moles/Vol] 139 mmol/L Normal 136-145 [facility] Comment on above: Performed By: #### L [id number] ####[facility] ([facility])[address] [place] [address] Urea nitrogen [Mass/Vol] 16 mg/dL Normal 7-25 [facility] Comment on above: Performed By: #### L [id number] ####[facility] ([facility])[address] [place] [address] UREA NITROGEN/CREATININE (MASS RATIO) IN SER/PLAS 13.6 Normal [facility] Comment on above: Performed By: #### L [id number] ####[facility] ([facility])[address] [place] [address] CBC WITH AUTO DIFFERENTIALon 07-17-2023 Basophils (Bld) [#/Vol] 0.05 10*3/uL Normal 0.00-0.20 [facility] Comment on above: Performed By: #### L [id number] #### [facility] ([facility]) [address] [place] [address] Basophils/100 WBC (Bld) 0.6 % Normal 0.0-1.0 [facility] Comment on above: Performed By: #### L [id number] #### [facility] (BEAKER) [address] [place] [address] Eosinophils (Bld) [#/Vol] 0.21 10*3/uL Normal 0.00-0.50 [facility] Comment on above: Performed By: #### L [id number] #### [facility] (AKER) [address] [place] [address] Eosinophils/100 WBC (Bld) 2.7 % Normal 0.0-6.0 [facility] Comment on above: Performed By: #### L [id number] #### [facility] ([facility]) [address] [place] [address] Erythrocyte distribution width (RBC) [Ratio] 14.3 % Normal 11.5-15.0 [facility] Comment on above: Performed By: #### L [id number] #### [facility] ([facility]) [address] [place] [address] ERYTHROCYTE MEAN CORPUSCULAR HEMOGLOBIN CONCENTRATION (G/DL) BY AUTOMATED 32.6 g/dL Normal 32.0-35.0 [facility] Comment on above: Performed By: #### L [id number] #### [facility] ([facility]) [address] [place] [address] Hematocrit (Bld) [Volume fraction] 38.3 % Normal 36.0-48.0 [facility] Comment on above: Performed By: #### L [id number] #### [facility] ([facility]) [address] [place] [address] Hemoglobin (Bld) [Mass/Vol] 12.5 g/dL Normal 12.0-15.0 [facility] Comment on above: Performed By: #### L [id number] #### [facility] (BEAKER) [address] [place] [address] Immature granulocytes (Bld) [#/Vol] 0.10 10*3/uL Normal 0.00-0.20 [facility] Comment on above: Performed By: #### L [id number] #### [facility] (BEAKER) [address] [place] [address] Immature granulocytes/100 WBC (Bld) 1.3 % High 0.0-1.0 [facility] Comment on above: Performed By: #### L [id number] #### [facility] ([facility]) [address] [place] [address] Lymphocytes (Bld) [#/Vol] 1.37 10*3/uL Normal 1.20-4.00 [facility] Comment on above: Performed By: #### L [id number] #### [facility] ([facility]) [address] [facility] [place] [address] Lymphocytes/100 WBC (Bld) 17.4 % Low 20.0-45.0 [facility] Comment on above: Performed By: #### L [id number] #### [facility] ([facility]) [address] [facility] [address] MCH (RBC) [Entitic mass] 28.9 pg Normal 27.0-33.0 [facility] Comment on above: Performed By: #### L [id number] #### [facility] ([facility]) [address] [place] [address] MCV (RBC) [Entitic vol] 88.5 fL Normal 82.0-98.0 [facility] Comment on above: Performed By: #### L [id number] #### [facility] ([facility]) [address] [place] [address] Monocytes (Bld) [#/Vol] 0.44 10*3/uL Normal 0.10-1.00 [facility] Comment on above: Performed By: #### L [id number] #### [facility] ([facility]) [address] [facility] [place] [address] Monocytes/100 WBC (Bld) 5.6 % Normal 5.0-12.0 [facility] Comment on above: Performed By: #### L [id number] #### [facility] ([facility]) [address] [facility] [place] [address] Neutrophils (Bld) [#/Vol] 5.69 10*3/uL Normal 1.60-7.60 [facility] Comment on above: Performed By: #### L [id number] #### [facility] ([facility]) [address] [place] [address] Neutrophils/100 WBC (Bld) 72.4 % High 40.0-72.0 [facility] Comment on above: Performed By: #### L [id number] #### [facility] ([facility]) [address] [place] [address] NRBC (PER 100 WBCS) BY AUTOMATED COUNT 0.0 % Normal 0 [facility] Comment on above: Performed By: #### L [id number] #### [facility] ([facility]) [address] [place] [address] PLATELETS (10*3/UL) IN BLOOD AUTOMATED COUNT 349 10*3/uL Normal 150-400 [facility] Comment on above: Performed By: #### L [id number] #### [facility] ([facility]) [address] [place] [address] RBC (Bld) [#/Vol] 4.33 10*6/uL Normal 3.80-5.00 [facility] Comment on above: Performed By: #### L [id number] #### [facility] ([facility]) [address] [address] WBC (Bld) [#/Vol] 7.86 10*3/uL Normal 4.00-10.60 [facility] Comment on above: Performed By: #### L [id number] #### [facility] ([facility]) [address] [place] [address] HEPATIC FUNCTION PANELon Albumin [Mass/Vol] 4.4 g/dL Normal 3.5-5.7 [facility] Comment on above: Performed By: #### L [id number] #### [facility] ([facility]) [address] [place] [address] ALP [Catalytic activity/Vol] 83 U/L Normal 34-104 [facility] Comment on above: Performed By: #### L [id number] #### [facility] ([facility]) [address] [place] [address] ALT [Catalytic activity/Vol] 25 U/L Normal 7-52 [facility] Comment on above: Performed By: #### L [id number] #### [facility] ([facility]) [address] [place] [address] AST [Catalytic activity/Vol] 21 U/L Normal 13-39 [facility] Comment on above: Performed By: #### L [id number] #### [facility] ([facility]) [address] [place] [address] Bilirubin [Mass/Vol] 0.4 mg/dL Normal 0.3-1.0 [facility] Comment on above: Performed By: #### L [id number] #### [facility] ([facility]) [address] [place] [address] Magnesium [Mass/Vol] 0.1 mg/dL Normal 0-0.2 [facility] Comment on above: Performed By: #### L [id number] #### [facility] ([facility]) [address] [place] [address] Protein [Mass/Vol] 7.3 g/dL Normal 6.0-8.3 [facility] Comment on above: Performed By: #### L [id number] #### [facility] ([facility]) [address] [place] [address] Labon 07-17-2023 Lab [id number] Antonio Puri i 1975 F Date Provider Department Center 07/17/2023 2245-[facility] LAB RESOURCE [facility] OPD [facility] C Family History Problem Relation Age of Onset Fibromyalgia Mother Heart disease Father Hypertension Sister Polycystic kidney disease Sister Hypertension Brother Polycystic kidney disease Brother Family Status - Relation Status Age at Mother Father Sister Brother Normal [facility] MAGNESIUMon 07-17-2023 Magnesium [Mass/Vol] 1.6 mg/dL Low 1.9-2.7 [facility] Comment on above: Performed By: #### L [id number] #### [facility] TISSUE TYPING (HISTOTRAC) [address] [place] [address] [facility] Orders Onlyon 07-17-2023 Orders Only [id number] KhushiAntonio clemens 1975 F Date Provider Department Center 07/17/20231970-LU STEPHENS [place] None Family History Problem Relation Age of Onset Fibromyalgia Mother Heart disease Father Hypertension Sister Polycystic kidney disease Sister Hypertension Brother Polycystic kidney disease Brother Family Status - Relation Status Age at Mother Father Sister Brother Normal [facility] PHOSPHORUSon 07-17-2023 Magnesium [Mass/Vol] 3.3 mg/dL Normal 2.5-5.0 [facility] Comment on above: Performed By: #### L [id number] #### [facility] LAB (BEAKER) [address] [place] [address] TACROLIMUS LEVELon Tacrolimus (Bld) [Mass/Vol] 6.5 ng/mL Normal 5.0-20.0 [facility] Comment on above: Result Comment: The [employer] Tacrolimus assay is a delayed one-step immunoassay for the quantitative determination of tacrolimus in human whole blood using the chemiluminescent microparticle immunoassay (CMIA) technology with flexible assay protocols, referred to as Chemiflex. Performed By: #### L [id number] #### [facility] TISSUE TYPING (HISTOTRAC) [address] [place] [address] [facility] URIC ACIDon 07-17-2023 Magnesium [Mass/Vol] 4.9 mg/dL Normal 2.3-6.6 [facility] Comment on above: Performed By: #### L [id number] #### [facility] TISSUE TYPING (HISTOTRAC) [address] [place] [address] [facility] 29on 07-16-2023 29 Addended by: LU STEPHENS on: 07/16/2023 03:23 PM Modules accepted: Orders Normal [facility] Documentationon 07-16-2023 Documentation [id number] Khushi,Antonio clemens 1975 F Date Provider Department Center 07/16/20231970-LU STEPHENS TXP None Family History Problem Relation Age of Onset Fibromyalgia Mother Heart disease Father Hypertension Sister Polycystic kidney disease Sister Hypertension Brother Polycystic kidney disease Brother Family Status - Relation Status Age at Mother Father Sister Brother Reason for Visit and Comments: Kidney Follow-up [] Normal [facility] [facility] BASIC METABOLIC PANELon 09-2 Anion gap [Moles/Vol] 13 mmol/L Normal 7-20 [facility] Comment on above: Performed By: #### L [id number] #### [facility] ([facility]) [address] [place] [address] Calcium [Mass/Vol] 9.6 mg/dL Normal 8.6-10.3 [facility] Comment on above: Performed By: #### L [id number] #### [facility] ([facility]) [address] [place] [address] Chloride [Moles/Vol] 102 mmol/L Normal 98-107 [facility] Comment on above: Performed By: #### L [id number] #### [facility] ([facility]) [address] [place] [address] CO2 [Moles/Vol] 25 mmol/L Normal 21-31 [facility] Comment on above: Performed By: #### L [id number] #### [facility] ([facility]) [address] [place] [address] Creatinine [Mass/Vol] 1.26 mg/dL High 0.60-1.20 [facility] Comment on above: Performed By: #### L [id number] #### [facility] ([facility]) [address] [place] [address] GLOMERULAR FILTRATION RATE ML/MIN/1.73 SQ M.PREDICTED 53.0 mL/min/1.73m*2 Low >60.0 [facility] Comment on above: Result Comment: The [facility]???s estimated glomerular filtration rate (eGFR) will no [...] individuals. Performed By: #### L [id number] #### [facility] ([facility]) [address] [place] [address] Glucose [Mass/Vol] 128 mg/dL High 70-100 [facility] Comment on above: Performed By: #### L [id number] #### [facility] ([facility]) [address] [place] [address] Potassium [Moles/Vol] 3.1 mmol/L Low 3.5-5.1 [facility] Comment on above: Performed By: #### L [id number] #### [facility] ([facility]) [address] [place] [address] Sodium [Moles/Vol] 137 mmol/L Normal 136-145 [facility] Comment on above: Performed By: #### L [id number] #### [facility] ([facility]) [address] [place] [address] Urea nitrogen [Mass/Vol] 14 mg/dL Normal 7-25 [facility] Comment on above: Performed By: #### L [id number] #### [facility] ([facility]) [address] [place] [address] UREA NITROGEN/CREATININE (MASS RATIO) IN SER/PLAS 11.1 Normal [facility] Comment on above: Performed By: #### L [id number] #### [facility] ([facility]) [address] [place] [address] CBC WITH AUTO DIFFERENTIALon 06-28-2023 Basophils (Bld) [#/Vol] 0.06 10*3/uL Normal 0.00-0.20 [facility] Comment on above: Performed By: #### L [id number] #### [facility] ([facility]) [address] [place] [address] Basophils/100 WBC (Bld) 0.6 % Normal 0.0-1.0 [facility] Comment on above: Performed By: #### L [id number] #### [facility] ([facility]) [address] [place] [address] Eosinophils (Bld) [#/Vol] 0.18 10*3/uL Normal 0.00-0.50 [facility] Comment on above: Performed By: #### L [id number] #### [facility] ([facility]) [address] [place] [address] Eosinophils/100 WBC (Bld) 1.8 % Normal 0.0-6.0 [facility] Comment on above: Performed By: #### L [id number] #### [facility] ([facility]) [address] [place] [address] Erythrocyte distribution width (RBC) [Ratio] 14.5 % Normal 11.5-15.0 [facility] Comment on above: Performed By: #### L [id number] #### [facility] ([facility]) [address] [place] [address] ERYTHROCYTE MEAN CORPUSCULAR HEMOGLOBIN CONCENTRATION (G/DL) BY AUTOMATED 33.1 g/dL Normal 32.0-35.0 [facility] Comment on above: Performed By: #### L [id number] #### [facility] ([facility]) [address] [place] [address] Hematocrit (Bld) [Volume fraction] 40.5 % Normal 36.0-48.0 [facility] Comment on above: Performed By: #### L [id number] #### [facility] ([facility]) [address] [place] [address] Hemoglobin (Bld) [Mass/Vol] 13.4 g/dL Normal 12.0-15.0 [facility] Comment on above: Performed By: #### L [id number] #### [facility] ([facility]) [address] [place] [address] Immature granulocytes (Bld) [#/Vol] 0.13 10*3/uL Normal 0.00-0.20 [facility] Comment on above: Performed By: #### L [id number] #### [facility] ([facility]) [address] [place] [address] Immature granulocytes/100 WBC (Bld) 1.3 % High 0.0-1.0 [facility] Comment on above: Performed By: #### L [id number] #### [facility] ([facility]ER) [address] [place] [address] Lymphocytes (Bld) [#/Vol] 1.30 10*3/uL Normal 1.20-4.00 [facility] Comment on above: Performed By: #### L [id number] #### [facility] ([facility]) [address] [place] [address] Lymphocytes/100 WBC (Bld) 13.3 % Low 20.0-45.0 [facility] Comment on above: Performed By: #### L [id number] #### [facility] ([facility]) [address] [place] [address] MCH (RBC) [Entitic mass] 29.2 pg Normal 27.0-33.0 [facility] Comment on above: Performed By: #### L [id number] #### [facility] ([facility]ER) [address] [place] [address] MCV (RBC) [Entitic vol] 88.2 fL Normal 82.0-98.0 [facility] Comment on above: Performed By: #### L [id number] #### [facility] ([facility]) [address] [place] [address] Monocytes (Bld) [#/Vol] 0.51 10*3/uL Normal 0.10-1.00 [facility] Comment on above: Performed By: #### L [id number] #### [facility] ([facility]) [address] [place] [address] Monocytes/100 WBC (Bld) 5.2 % Normal 5.0-12.0 [facility] Comment on above: Performed By: #### L [id number] #### [facility] ([facility]) [address] [place] [address] Neutrophils (Bld) [#/Vol] 7.62 10*3/uL High 1.60-7.60 [facility] Comment on above: Performed By: #### L [id number] #### [facility] ([facility]) [address] [place] [address] Neutrophils/100 WBC (Bld) 77.8 % High 40.0-72.0 [facility] Comment on above: Performed By: #### L [id number] #### [facility] ([facility]) [address] [place] [address] NRBC (PER 100 WBCS) BY AUTOMATED COUNT 0.0 % Normal 0 [facility] Comment on above: Performed By: #### L [id number] #### [facility] ([facility]) [address] [place] [address] PLATELETS (10*3/UL) IN BLOOD AUTOMATED COUNT 334 10*3/uL Normal 150-400 [facility] Comment on above: Performed By: #### L [id number] #### [facility] ([facility]) [address] [place] [address] RBC (Bld) [#/Vol] 4.59 10*6/uL Normal 3.80-5.00 [facility] Comment on above: Performed By: #### L [id number] #### [facility] ([facility]) [address] [place] [address] WBC (Bld) [#/Vol] 9.80 10*3/uL Normal 4.00-10.60 [facility] Comment on above: Performed By: #### L [id number] #### [facility] ([facility]) [address] [place] [address] HEPATIC FUNCTION PANELon Albumin [Mass/Vol] 4.7 g/dL Normal 3.5-5.7 [facility] Comment on above: Performed By: #### L [id number] #### [facility] ([facility]) [address] [place] [address] ALP [Catalytic activity/Vol] 91 U/L Normal 34-104 [facility] Comment on above: Performed By: #### L [id number] #### [facility] ([facility]) [address] [place] [address] ALT [Catalytic activity/Vol] 29 U/L Normal 7-52 [facility] Comment on above: Performed By: #### L [id number] #### [facility] ([facility]) [address] [place] [address] AST [Catalytic activity/Vol] 25 U/L Normal 13-39 [facility] Comment on above: Performed By: #### L [id number] #### [facility] ([facility]) [address] [place] [address] Bilirubin [Mass/Vol] 0.5 mg/dL Normal 0.3-1.0 [facility] Comment on above: Performed By: #### L [id number] #### [facility] ([facility]) [address] [place] [address] Magnesium [Mass/Vol] 0.1 mg/dL Normal 0-0.2 [facility] Comment on above: Performed By: #### L [id number] #### [facility] ([facility]) [address] [place] [address] Protein [Mass/Vol] 7.9 g/dL Normal 6.0-8.3 [facility] Comment on above: Performed By: #### L [id number] #### [facility] ([facility]) [address] [place] [address] LIPID PANELon 06-28-2023 CHOL/HDL 4.1 mg/dL Normal [facility] Comment on above: Performed By: #### L [id number] #### [facility] ([facility]) [address] [place] [address] Cholesterol [Mass/Vol] 192 mg/dL Normal 120-200 [facility] Comment on above: Performed By: #### L [id number] #### [facility] ([facility]) [address] [place] [address] Magnesium [Mass/Vol] 228 mg/dL High 40-149 [facility] Comment on above: Result Comment: TRIG LYCERIDE REFERENCE RANGE: 20 YEARS AND OLDER CARDIOVASCULAR RISK LESS THAN 150 mg/dL LOW RISK 150 TO 199 mg/dL BORDERLINE RISK 200 mg/dL AND GREATER HIGH RISK Performed By: #### L [id number] #### [facility] ([facility]) [address] [place] [address] Magnesium [Mass/Vol] 99 mg/dL Normal 0-160 [facility] Comment on above: Performed By: #### L [id number] #### [facility] ([facility]) [address] [place] [address] Magnesium [Mass/Vol] 47 mg/dL Normal 23-92 [facility] Comment on above: Performed By: #### L [id number] #### [facility] ([facility]) [address] [place] [address] NON HDL CHOL. (LDL+VLDL) 145 Normal [facility] Comment on above: Performed By: #### L [id number] #### [facility] ([facility]) [address] [place] [address] TOTAL VLDL-C 46 mg/dL High 0-40 [facility] Comment on above: Performed By: #### L [id number] #### [facility] ([facility]) [address] [place] [address] Labon 06-28-2023 Lab [id number] Antonio Puri i 1975 F Date Provider Department Center 06/28/2023 2245-[facility] RESOURCE [facility] [place] [facility] C Family History Problem Relation Age of Onset Fibromyalgia Mother Heart disease Father Hypertension Sister Polycystic kidney disease Sister Hypertension Brother Polycystic kidney disease Brother Family Status - Relation Status Age at Mother Father Sister Brother Normal [facility] MAGNESIUMon 06-28-2023 Magnesium [Mass/Vol] 1.4 mg/dL Low 1.9-2.7 [facility] Comment on above: Performed By: #### L [id number] ####[facility] ([facility])[address] [place] [address] PHOSPHORUSon 06-28-2023 Magnesium [Mass/Vol] 2.7 mg/dL Normal 2.5-5.0 [facility] Comment on above: Performed By: #### L [id number] ####[facility] ([facility])[address] [place] [address] TACROLIMUS LEVELon Tacrolimus (Bld) [Mass/Vol] 6.9 ng/mL Normal 5.0-20.0 [facility] Comment on above: Result Comment: The [employer] Tacrolimus assay is a delayed one-step immunoassay for the quantitative determination of tacrolimus in human whole blood using the chemiluminescent microparticle immunoassay (CMIA) technology with flexible assay protocols, referred to as Chemiflex. Performed By: #### L [id number] #### [facility] ([facility]) [address] [place] [address] URIC ACIDon 06-28-2023 Magnesium [Mass/Vol] 5.0 mg/dL Normal 2.3-6.6 [facility] Comment on above: Performed By: #### L [id number] #### [facility] ([facility]) [address] [place] [address] 36on 06-23-2023 36 I reviewed the case with the resident. I agree with the assessment and plan as documented in the resident's note. 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 [[id number]] Normal [facility] BASIC METABOLIC PANELon 08 Anion gap [Moles/Vol] 13 mmol/L Normal 7-20 [facility] Comment on above: Performed By: #### L [id number] ####[facility] ([facility])[address] [place] [address] Calcium [Mass/Vol] 9.5 mg/dL Normal 8.6-10.3 [facility] Comment on above: Performed By: #### L [id number] ####[facility] ([facility])[address] [place] [address] Chloride [Moles/Vol] 101 mmol/L Normal 98-107 [facility] Comment on above: Performed By: #### L [id number] ####[facility] ([facility])[address] [place] [address] CO2 [Moles/Vol] 27 mmol/L Normal 21-31 [facility] Comment on above: Performed By: #### L [id number] ####[facility] ([facility])[address] [facility] [place] [address] Creatinine [Mass/Vol] 1.28 mg/dL High 0.60-1.20 [facility] Comment on above: Performed By: #### L [id number] ####[facility] ([facility])[address] [facility] [address] GLOMERULAR FILTRATION RATE ML/MIN/1.73 SQ M.PREDICTED 52.0 mL/min/1.73m*2 Low >60.0 [facility] Comment on above: Result Comment: The [facility]???s estimated glomerular filtration rate (eGFR) will no [...] of individuals. Performed By: #### L [id number] ####[facility] ([facility])[address] [place] [address] Glucose [Mass/Vol] 163 mg/dL High 70-100 [facility] Comment on above: Performed By: #### L [id number] ####[facility] ([facility])[address] [facility] [place] [address] Potassium [Moles/Vol] 3.1 mmol/L Low 3.5-5.1 [facility] Comment on above: Performed By: #### L [id number] ####[facility] ([facility])[address] [place] [address] Sodium [Moles/Vol] 138 mmol/L Normal 136-145 [facility] Comment on above: Performed By: #### L [id number] ####[facility] ([facility])[address] [facility] [address] Urea nitrogen [Mass/Vol] 18 mg/dL Normal 7-25 [facility] Comment on above: Performed By: #### L [id number] ####[facility] ([facility])[address] [place] [address] UREA NITROGEN/CREATININE (MASS RATIO) IN SER/PLAS 14.1 Normal [facility] Comment on above: Performed By: #### L [id number] ####[facility] ([facility])[address] [facility] [address] CBC WITH AUTO DIFFERENTIALon 05-29-2023 Basophils (Bld) [#/Vol] 0.06 10*3/uL Normal 0.00-0.20 [facility] Comment on above: Performed By: #### L [id number] #### [facility] ([facility]) [address] [place] [address] Basophils/100 WBC (Bld) 0.6 % Normal 0.0-1.0 [facility] Comment on above: Performed By: #### L [id number] #### [facility] ([facility]) [address] [place] [address] Eosinophils (Bld) [#/Vol] 0.18 10*3/uL Normal 0.00-0.50 [facility] Comment on above: Performed By: #### L [id number] #### [facility] ([facility]) [address] [place] [address] Eosinophils/100 WBC (Bld) 1.9 % Normal 0.0-6.0 [facility] Comment on above: Performed By: #### L [id number] #### [facility] ([facility]) [address] [place] [address] Erythrocyte distribution width (RBC) [Ratio] 14.3 % Normal 11.5-15.0 [facility] Comment on above: Performed By: #### L [id number] #### [facility] ([facility]) [address] [place] [address] ERYTHROCYTE MEAN CORPUSCULAR HEMOGLOBIN CONCENTRATION (G/DL) BY AUTOMATED 32.4 g/dL Normal 32.0-35.0 [facility] Comment on above: Performed By: #### L [id number] #### [facility] ([facility]) [address] [place] [address] Hematocrit (Bld) [Volume fraction] 37.4 % Normal 36.0-48.0 [facility] Comment on above: Performed By: #### L [id number] #### [facility] ([facility]) [address] [place] [address] Hemoglobin (Bld) [Mass/Vol] 12.1 g/dL Normal 12.0-15.0 [facility] Comment on above: Performed By: #### L [id number] #### [facility] ([facility]) [address] [place] [address] Immature granulocytes (Bld) [#/Vol] 0.17 10*3/uL Normal 0.00-0.20 [facility] Comment on above: Performed By: #### L [id number] #### [facility] ([facility]) [address] [place] [address] Immature granulocytes/100 WBC (Bld) 1.8 % High 0.0-1.0 [facility] Comment on above: Performed By: #### L [id number] #### [facility] ([facility]) [address] [place] [address] Lymphocytes (Bld) [#/Vol] 1.30 10*3/uL Normal 1.20-4.00 [facility] Comment on above: Performed By: #### L [id number] #### [facility] ([facility]) [address] [place] [address] Lymphocytes/100 WBC (Bld) 13.4 % Low 20.0-45.0 [facility] Comment on above: Performed By: #### L [id number] #### [facility] ([facility]) [address] [place] [address] MCH (RBC) [Entitic mass] 28.8 pg Normal 27.0-33.0 [facility] Comment on above: Performed By: #### L [id number] #### [facility] ([facility]) [address] [place] [address] MCV (RBC) [Entitic vol] 89.0 fL Normal 82.0-98.0 [facility] Comment on above: Performed By: #### L [id number] #### [facility] ([facility]) [address] [place] [address] Monocytes (Bld) [#/Vol] 0.56 10*3/uL Normal 0.10-1.00 [facility] Comment on above: Performed By: #### L [id number] #### [facility] ([facility]) [address] [place] [address] Monocytes/100 WBC (Bld) 5.8 % Normal 5.0-12.0 [facility] Comment on above: Performed By: #### L [id number] #### [facility] ([facility]) [address] [place] [address] Neutrophils (Bld) [#/Vol] 7.43 10*3/uL Normal 1.60-7.60 [facility] Comment on above: Performed By: #### L [id number] #### [facility] ([facility]) [address] [place] [address] Neutrophils/100 WBC (Bld) 76.5 % High 40.0-72.0 [facility] Comment on above: Performed By: #### L [id number] #### [facility] ([facility]) [address] [place] [address] NRBC (PER 100 WBCS) BY AUTOMATED COUNT 0.0 % Normal 0 [facility] Comment on above: Performed By: #### L [id number] #### [facility] ([facility]) [address] [place] [address] PLATELETS (10*3/UL) IN BLOOD AUTOMATED COUNT 331 10*3/uL Normal 150-400 [facility] Comment on above: Performed By: #### L [id number] #### [facility] ([facility]) [address] [place] [address] RBC (Bld) [#/Vol] 4.20 10*6/uL Normal 3.80-5.00 [facility] Comment on above: Performed By: #### L [id number] #### [facility] ([facility]) [address] [place] [address] WBC (Bld) [#/Vol] 9.70 10*3/uL Normal 4.00-10.60 [facility] Comment on above: Performed By: #### L [id number] #### [facility] ([facility]) [address] [place] [address] HEPATIC FUNCTION PANELon Albumin [Mass/Vol] 4.5 g/dL Normal 3.5-5.7 [facility] Comment on above: Performed By: #### L [id number] ####[facility] ([facility])[address] [place] [address] ALP [Catalytic activity/Vol] 87 U/L Normal 34-104 [facility] Comment on above: Performed By: #### L [id number] ####[facility] ([facility])[address] [place] [address] ALT [Catalytic activity/Vol] 29 U/L Normal 7-52 [facility] Comment on above: Performed By: #### L [id number] ####[facility] ([facility])[address] [place] [address] AST [Catalytic activity/Vol] 24 U/L Normal 13-39 [facility] Comment on above: Performed By: #### L [id number] ####[facility] ([facility])[address] [place] [address] Bilirubin [Mass/Vol] 0.4 mg/dL Normal 0.3-1.0 [facility] Comment on above: Performed By: #### L [id number] ####[facility] ([facility])[address] [place] [address] Magnesium [Mass/Vol] 0.0 mg/dL Normal 0-0.2 [facility] Comment on above: Performed By: #### L [id number] ####[facility] ([facility])[address] [place] [address] Protein [Mass/Vol] 7.4 g/dL Normal 6.0-8.3 [facility] Comment on above: Performed By: #### L [id number] ####[facility] ([facility])[address] [place] [address] Labon 05-29-2023 Lab [id number] Antonio Puri i 1975 F Date Provider Department Center 05/29/20232244-[facility] RESOURCE [facility] C Family History Problem Relation Age of Onset Fibromyalgia Mother Heart disease Father Hypertension Sister Polycystic kidney disease Sister Hypertension Brother Polycystic kidney disease Brother Family Status - Relation Status Age at Mother Father Sister Brother Normal [facility] MAGNESIUMon 08-24-2023 Magnesium [Mass/Vol] 1.7 mg/dL Low 1.9-2.7 [facility] Comment on above: Performed By: #### L [id number] #### [facility] ([facility]) [address] [place] [address] PHOSPHORUSon 05-29-2023 Magnesium [Mass/Vol] 2.8 mg/dL Normal 2.5-5.0 [facility] Comment on above: Performed By: #### L [id number] ####[facility] ([facility])[address] [place] [address] TACROLIMUS LEVELon Tacrolimus (Bld) [Mass/Vol] 5.6 ng/mL Normal 5.0-20.0 [facility] Comment on above: Result Comment: The [employer] Tacrolimus assay is a delayed one-step immunoassay for the quantitative determination of tacrolimus in human whole blood using the chemiluminescent microparticle immunoassay (CMIA) technology with flexible assay protocols, referred to as Chemiflex. Performed By: #### L [id number] #### [facility] ([facility]) [address] [place] [address] URIC ACIDon 05-29-2023 Magnesium [Mass/Vol] 5.0 mg/dL Normal 2.3-6.6 [facility] Comment on above: Performed By: #### L [id number] ####[facility] ([facility])[address] [place] [id number] BASIC METABOLIC PANELon 04-06 Anion gap [Moles/Vol] 13 mmol/L Normal 7-20 [facility] Comment on above: Performed By: #### L [id number] #### [facility] ([facility]) [address] [place] [address] Calcium [Mass/Vol] 9.5 mg/dL Normal 8.6-10.3 [facility] Comment on above: Performed By: #### L [id number] #### [facility] ([facility]) [address] [place] [address] Chloride [Moles/Vol] 104 mmol/L Normal 98-107 [facility] Comment on above: Performed By: #### L [id number] #### [facility] ([facility]) [address] [place] [address] CO2 [Moles/Vol] 22 mmol/L Normal 21-31 [facility] Comment on above: Performed By: #### L [id number] #### [facility] ([facility]) [address] [place] [address] Creatinine [Mass/Vol] 1.25 mg/dL High 0.60-1.20 [facility] Comment on above: Performed By: #### L [id number] #### [facility] ([facility]) [address] [place] [address] GLOMERULAR FILTRATION RATE ML/MIN/1.73 SQ M.PREDICTED 53.5 mL/min/1.73m*2 Low >60.0 [facility] Comment on above: Result Comment: The [facility]???s estimated glomerular filtration rate (eGFR) will no [...] individuals. Performed By: #### L [id number] #### [facility] ([facility]) [address] [place] [address] Glucose [Mass/Vol] 189 mg/dL High 70-100 [facility] Comment on above: Performed By: #### L [id number] #### [facility] ([facility]) [address] [place] [address] Potassium [Moles/Vol] 4.0 mmol/L Normal 3.5-5.1 [facility] Comment on above: Performed By: #### L [id number] #### [facility] ([facility]) [address] [place] [address] Sodium [Moles/Vol] 135 mmol/L Low 136-145 [facility] Comment on above: Performed By: #### L [id number] #### [facility] ([facility]) [address] [place] [address] Urea nitrogen [Mass/Vol] 19 mg/dL Normal 7-25 [facility] Comment on above: Performed By: #### L [id number] #### [facility] ([facility]) [address] [place] [address] UREA NITROGEN/CREATININE (MASS RATIO) IN SER/PLAS 15.2 Normal [facility] Comment on above: Performed By: #### L [id number] #### [facility] ([facility]) [address] [place] [address] CBC WITH AUTO DIFFERENTIALon 04-30-2023 Basophils (Bld) [#/Vol] 0.05 10*3/uL Normal 0.00-0.20 [facility] Comment on above: Performed By: #### L [id number] #### [facility] ([facility]) [address] [place] [address] Basophils/100 WBC (Bld) 0.7 % Normal 0.0-1.0 [facility] Comment on above: Performed By: #### L [id number] #### [facility] ([facility]) [address] [place] [address] Eosinophils (Bld) [#/Vol] 0.16 10*3/uL Normal 0.00-0.50 [facility] Comment on above: Performed By: #### L [id number] #### [facility] ([facility]) [address] [place] [address] Eosinophils/100 WBC (Bld) 2.1 % Normal 0.0-6.0 [facility] Comment on above: Performed By: #### L [id number] #### [facility] ([facility]) [address] [place] [address] Erythrocyte distribution width (RBC) [Ratio] 14.3 % Normal 11.5-15.0 [facility] Comment on above: Performed By: #### L [id number] #### [facility] ([facility]) [address] [place] [address] ERYTHROCYTE MEAN CORPUSCULAR HEMOGLOBIN CONCENTRATION (G/DL) BY AUTOMATED 33.1 g/dL Normal 32.0-35.0 [facility] Comment on above: Performed By: #### L [id number] #### [facility] ([facility]) [address] [place] [address] Hematocrit (Bld) [Volume fraction] 35.9 % Low 36.0-48.0 [facility] Comment on above: Performed By: #### L [id number] #### [facility] ([facility]) [address] [place] [address] Hemoglobin (Bld) [Mass/Vol] 11.9 g/dL Low 12.0-15.0 [facility] Comment on above: Performed By: #### L [id number] #### [facility] ([facility]) [address] [place] [address] Immature granulocytes (Bld) [#/Vol] 0.12 10*3/uL Normal 0.00-0.20 [facility] Comment on above: Performed By: #### L [id number] #### [facility] ([facility]) [address] [place] [address] Immature granulocytes/100 WBC (Bld) 1.6 % High 0.0-1.0 [facility] Comment on above: Performed By: #### L [id number] #### [facility] ([facility]) [address] [place] [address] Lymphocytes (Bld) [#/Vol] 1.30 10*3/uL Normal 1.20-4.00 [facility] Comment on above: Performed By: #### L [id number] #### [facility] ([facility]) [address] [place] [address] Lymphocytes/100 WBC (Bld) 16.9 % Low 20.0-45.0 [facility] Comment on above: Performed By: #### L [id number] #### [facility] ([facility]) [address] [place] [address] MCH (RBC) [Entitic mass] 29.6 pg Normal 27.0-33.0 [facility] Comment on above: Performed By: #### L [id number] #### [facility] ([facility]) [address] [place] [address] MCV (RBC) [Entitic vol] 89.3 fL Normal 82.0-98.0 [facility] Comment on above: Performed By: #### L [id number] #### [facility] ([facility]) [address] [place] [address] Monocytes (Bld) [#/Vol] 0.46 10*3/uL Normal 0.10-1.00 [facility] Comment on above: Performed By: #### L [id number] #### [facility] ([facility]) [address] [place] [address] Monocytes/100 WBC (Bld) 6.0 % Normal 5.0-12.0 [facility] Comment on above: Performed By: #### L [id number] #### [facility] ([facility]) [address] [place] [address] Neutrophils (Bld) [#/Vol] 5.58 10*3/uL Normal 1.60-7.60 [facility] Comment on above: Performed By: #### L [id number] #### [facility] ([facility]) [address] [place] [address] Neutrophils/100 WBC (Bld) 72.7 % High 40.0-72.0 [facility] Comment on above: Performed By: #### L [id number] #### [facility] ([facility]) [address] [place] [address] NRBC (PER 100 WBCS) BY AUTOMATED COUNT 0.0 % Normal 0 [facility] Comment on above: Performed By: #### L [id number] #### [facility] ([facility]) [address] [place] [address] PLATELETS (10*3/UL) IN BLOOD AUTOMATED COUNT 295 10*3/uL Normal 150-400 [facility] Comment on above: Performed By: #### L [id number] #### [facility] ([facility]) [address] [place] [address] RBC (Bld) [#/Vol] 4.02 10*6/uL Normal 3.80-5.00 [facility] Comment on above: Performed By: #### L [id number] #### [facility] ([facility]) [address] [place] [address] WBC (Bld) [#/Vol] 7.67 10*3/uL Normal 4.00-10.60 [facility] Comment on above: Performed By: #### L [id number] #### [facility] ([facility]) [address] [place] [address] HEPATIC FUNCTION PANELon Albumin [Mass/Vol] 4.6 g/dL Normal 3.5-5.7 [facility] Comment on above: Performed By: #### L [id number] ####[facility] ([facility])[address] [place] [address] ALP [Catalytic activity/Vol] 82 U/L Normal 34-104 [facility] Comment on above: Performed By: #### L [id number] ####[facility] ([facility])[address] [place] [address] ALT [Catalytic activity/Vol] 25 U/L Normal 7-52 [facility] Comment on above: Performed By: #### L [id number] ####[facility] ([facility])[address] [place] [address] AST [Catalytic activity/Vol] 19 U/L Normal 13-39 [facility] Comment on above: Performed By: #### L [id number] ####[facility] ([facility])[address] [place] [address] Bilirubin [Mass/Vol] 0.5 mg/dL Normal 0.3-1.0 [facility] Comment on above: Performed By: #### L [id number] ####[facility] ([facility])[address] [place] [address] Magnesium [Mass/Vol] 0.1 mg/dL Normal 0-0.2 [facility] Comment on above: Performed By: #### L [id number] ####[facility] ([facility])[address] [place] [address] Protein [Mass/Vol] 7.2 g/dL Normal 6.0-8.3 [facility] Comment on above: Performed By: #### L [id number] ####[facility] ([facility])[address] [place] [address] Labon 04-30-2023 Lab [id number] Antonio Puri i 1975 F Date Provider Department Center 04/30/2023 2245-[facility] LAB RESOURCE [facility] [place] Medical C Family History Problem Relation Age of Onset Fibromyalgia Mother Heart disease Father Hypertension Sister Polycystic kidney disease Sister Hypertension Brother Polycystic kidney disease Brother Family Status - Relation Status Age at Mother Father Sister Brother Normal [facility] MAGNESIUMon 04-30-2023 Magnesium [Mass/Vol] 1.6 mg/dL Low 1.9-2.7 [facility] Comment on above: Performed By: #### L [id number] #### [facility] ([facility]) [address] [place] [address] PANEL REACTIVE ANTIBODYon HOLD SPECIMEN Hold for add-ons. Normal [facility] Comment on above: Result Comment: Auto resulted. Performed By: #### L [id number] #### [facility] ([facility]) [address] [place] [address] PHOSPHORUSon 04-30-2023 Magnesium [Mass/Vol] 2.3 mg/dL Low 2.5-5.0 [facility] Comment on above: Performed By: #### L [id number] #### [facility] ([facility]) [address] [place] [address] SINGLE ANTIGEN CLASS Ion AB SCREEN COMMENTS No Class I donor spe cific antibody identified [facility] Comment on above: Performed By: #### L [id number] ####[facility] TISSUE TYPING (HISTOTRAC)[address] [place] [address] [place] CLASS I TESTED DATE Normal [facility] Comment on above: Performed By: #### L [id number] ####[facility] TISSUE TYPING (HISTOTRAC)[address] [place] [address] [facility] SIGNED BY Signed by Nelson escamilla C[facility] MT(ASCP), Validation Scientist Transplant Immunology [facility] Comment on above: Result Comment: Clas s I Antigen Microbeads Performed By: #### L [id number] ####[facility] TISSUE TYPING (HISTOTRAC)[address] [place] [address] [facility] Performed By: #### L [id number] #### [facility] ([facility]) [address] [place] [address] SINGLE ANTIGEN CLASS 1 TEST METHOD Class I Single Antigen Normal [facility] Comment on above: Performed By: #### L [id number] ####[facility] TISSUE TYPING (HISTOTRAC)[address] [place] [address] [facility] SINGLE ANTIGEN CLASS IIon AB SCREEN COMMENTS No Class II donor specific antibody identified [facility] Comment on above: Performed By: #### L [id number] #### [facility] ([facility]) [address] [place] [address] CLASS II TESTED DATE [facility] Comment on above: Performed By: #### L [id number] #### [facility] ([facility]) [address] [place] [address] SINGLE ANTIGEN CLASS 2 TEST METHOD Class II Single Antigen Normal [facility] Comment on above: Result Comment: Clas s II Antigen Microbeads Performed By: #### L [id number] #### [facility] ([facility]) [address] [place] [address] TACROLIMUS LEVELon Tacrolimus (Bld) [Mass/Vol] 9.3 ng/mL Normal 5.0-20.0 [facility] Comment on above: Result Comment: The [employer] Tacrolimus assay is a delayed one-step immunoassay for the quantitative determination of tacrolimus in human whole blood using the chemiluminescent microparticle immunoassay (CMIA) technology with flexible assay protocols, referred to as Chemiflex. Performed By: #### L [id number] ####[facility] ([facility])[address] [place] [address] URIC ACIDon 04-30-2023 Magnesium [Mass/Vol] 4.9 mg/dL Normal 2.3-6.6 [facility] Comment on above: Performed By: #### L [id number] #### [facility] ([facility]) [address] [place] [address] Follow-Upon 04-16-2023 Follow-Up [id number] Antonio Puri i 1975 F Date Provider Department Center 04/16/2023 Ion-SUJIT BERNALP None Family History Problem Relation Age of Onset Fibromyalgia Mother Heart disease Father Hypertension Sister Polycystic kidney disease Sister Hypertension Brother Polycystic kidney disease Brother Family Status - Relation Status Age at Mother Father Sister Brother Level of Service:83502 HI OFFICE/OUTPATIENT ESTABLISHED MOD MDM 30-39 MIN Reason for Visit and Comments: Kidney Follow-up [] - Patient has concerns of feeling worse, increased urinating, issues with the prednisone, angry Normal [facility] BASIC METABOLIC PANELon - Anion gap [Moles/Vol] 14 mmol/L Normal 7-20 [facility] Comment on above: Performed By: #### L [id number] ####[facility] ([facility])[address] [place] [address] Calcium [Mass/Vol] 9.4 mg/dL Normal 8.6-10.3 [facility] Comment on above: Performed By: #### L [id number] ####[facility] ([facility])[address] [place] [address] Chloride [Moles/Vol] 104 mmol/L Normal 98-107 [facility] Comment on above: Performed By: #### L [id number] ####[facility] ([facility])[address] [place] [address] CO2 [Moles/Vol] 24 mmol/L Normal 21-31 [facility] Comment on above: Performed By: #### L [id number] ####[facility] ([facility])[address] [place] [address] Creatinine [Mass/Vol] 1.26 mg/dL High 0.60-1.20 [facility] Comment on above: Performed By: #### L [id number] ####[facility] ([facility])[address] [place] [address] GLOMERULAR FILTRATION RATE ML/MIN/1.73 SQ M.PREDICTED 53.0 mL/min/1.73m*2 Low >60.0 [facility] Comment on above: Result Comment: The [facility]???s estimated glomerular filtration rate (eGFR) will no [...] of individuals. Performed By: #### L [id number] ####[facility] ([facility])[address] [place] [address] Glucose [Mass/Vol] 155 mg/dL High 70-100 [facility] Comment on above: Performed By: #### L [id number] ####[facility] ([facility])[address] [place] [address] Potassium [Moles/Vol] 3.6 mmol/L Normal 3.5-5.1 [facility] Comment on above: Performed By: #### L [id number] ####[facility] ([facility])[address] [place] [address] Sodium [Moles/Vol] 138 mmol/L Normal 136-145 [facility] Comment on above: Performed By: #### L [id number] ####[facility] ([facility])[address] [place] [address] Urea nitrogen [Mass/Vol] 19 mg/dL Normal 7-25 [facility] Comment on above: Performed By: #### L [id number] ####[facility] ([facility])[address] [place] [address] UREA NITROGEN/CREATININE (MASS RATIO) IN SER/PLAS 15.1 Normal [facility] Comment on above: Performed By: #### L [id number] ####[facility] ([facility])[address] [place] [address] CBC WITH AUTO DIFFERENTIALon 03-31-2023 Basophils (Bld) [#/Vol] 0.07 10*3/uL Normal 0.00-0.20 [facility] Comment on above: Performed By: #### L [id number] ####[facility] ([facility])[address] [place] [address] Basophils/100 WBC (Bld) 0.9 % Normal 0.0-1.0 [facility] Comment on above: Performed By: #### L [id number] ####[facility] ([facility])[address] [place] [address] Eosinophils (Bld) [#/Vol] 0.22 10*3/uL Normal 0.00-0.50 [facility] Comment on above: Performed By: #### L [id number] ####[facility] ([facility])[address] [place] [address] Eosinophils/100 WBC (Bld) 2.9 % Normal 0.0-6.0 [facility] Comment on above: Performed By: #### L [id number] ####[facility] ([facility])[address] [place] [address] Erythrocyte distribution width (RBC) [Ratio] 14.0 % Normal 11.5-15.0 [facility] Comment on above: Performed By: #### L [id number] ####[facility] ([facility])[address] [place] [address] ERYTHROCYTE MEAN CORPUSCULAR HEMOGLOBIN CONCENTRATION (G/DL) BY AUTOMATED 32.1 g/dL Normal 32.0-35.0 [facility] Comment on above: Performed By: #### L [id number] ####[facility] ([facility])[address] [place] [address] Hematocrit (Bld) [Volume fraction] 36.5 % Normal 36.0-48.0 [facility] Comment on above: Performed By: #### L [id number] ####[facility] ([facility])[address] [place] [address] Hemoglobin (Bld) [Mass/Vol] 11.7 g/dL Low 12.0-15.0 [facility] Comment on above: Performed By: #### L [id number] ####[facility] ([facility])[address] [place] [address] Immature granulocytes (Bld) [#/Vol] 0.19 10*3/uL Normal 0.00-0.20 [facility] Comment on above: Performed By: #### L [id number] ####[facility] ([facility])[address] [place] [address] Immature granulocytes/100 WBC (Bld) 2.5 % High 0.0-1.0 [facility] Comment on above: Performed By: #### L [id number] ####[facility] ([facility])[address] [place] [address] Lymphocytes (Bld) [#/Vol] 1.44 10*3/uL Normal 1.20-4.00 [facility] Comment on above: Performed By: #### L [id number] ####[facility] ([facility])[address] [place] [address] Lymphocytes/100 WBC (Bld) 19.0 % Low 20.0-45.0 [facility] Comment on above: Performed By: #### L [id number] ####[facility] ([facility])[address] [place] [address] MCH (RBC) [Entitic mass] 29.5 pg Normal 27.0-33.0 [facility] Comment on above: Performed By: #### L [id number] ####[facility] ([facility])[address] [place] [address] MCV (RBC) [Entitic vol] 91.9 fL Normal 82.0-98.0 [facility] Comment on above: Performed By: #### L [id number] ####[facility] ([facility])[address] [place] [address] Monocytes (Bld) [#/Vol] 0.54 10*3/uL Normal 0.10-1.00 [facility] Comment on above: Performed By: #### L [id number] ####[facility] ([facility])[address] [place] [address] Monocytes/100 WBC (Bld) 7.1 % Normal 5.0-12.0 [facility] Comment on above: Performed By: #### L [id number] ####[facility] ([facility])[address] [place] [address] Neutrophils (Bld) [#/Vol] 5.12 10*3/uL Normal 1.60-7.60 [facility] Comment on above: Performed By: #### L [id number] ####[facility] ([facility])[address] [place] [address] Neutrophils/100 WBC (Bld) 67.6 % Normal 40.0-72.0 [facility] Comment on above: Performed By: #### L [id number] ####[facility] ([facility])[address] [place] [address] NRBC (PER 100 WBCS) BY AUTOMATED COUNT 0.0 % Normal 0 [facility] Comment on above: Performed By: #### L [id number] ####[facility] ([facility])[address] [place] [address] PLATELETS (10*3/UL) IN BLOOD AUTOMATED COUNT 274 10*3/uL Normal 150-400 [facility] Comment on above: Performed By: #### L [id number] ####[facility] ([facility])[address] [place] [address] RBC (Bld) [#/Vol] 3.97 10*6/uL Normal 3.80-5.00 [facility] Comment on above: Performed By: #### L [id number] ####[facility] ([facility])[address] [place] [address] WBC (Bld) [#/Vol] 7.58 10*3/uL Normal 4.00-10.60 [facility] Comment on above: Performed By: #### L [id number] ####[facility] ([facility])[address] [place] [address] HEPATIC FUNCTION PANELon Albumin [Mass/Vol] 4.4 g/dL Normal 3.5-5.7 [facility] Comment on above: Performed By: #### L [id number] #### [facility] ([facility]) [address] [place] [address] ALP [Catalytic activity/Vol] 80 U/L Normal 34-104 [facility] Comment on above: Performed By: #### L [id number] #### [facility] ([facility]) [address] [place] [address] ALT [Catalytic activity/Vol] 19 U/L Normal 7-52 [facility] Comment on above: Performed By: #### L [id number] #### [facility] ([facility]) [address] [place] [address] AST [Catalytic activity/Vol] 17 U/L Normal 13-39 [facility] Comment on above: Performed By: #### L [id number] #### [facility] ([facility]) [address] [place] [address] Bilirubin [Mass/Vol] 0.4 mg/dL Normal 0.3-1.0 [facility] Comment on above: Performed By: #### L [id number] #### [facility] ([facility]) [address] [place] [address] Magnesium [Mass/Vol] 0.1 mg/dL Normal 0-0.2 [facility] Comment on above: Performed By: #### L [id number] #### [facility] ([facility]) [address] [place] [address] Protein [Mass/Vol] 7.4 g/dL Normal 6.0-8.3 [facility] Comment on above: Performed By: #### L [id number] #### [facility] ([facility]) [address] [place] [address] LIPID PANELon 03-31-2023 CHOL/HDL 4.9 mg/dL Normal [facility] Comment on above: Performed By: #### L [id number] #### [facility] ([facility]) [address] [place] [address] Cholesterol [Mass/Vol] 240 mg/dL High 120-200 [facility] Comment on above: Performed By: #### L [id number] #### [facility] ([facility]) [address] [place] [address] Magnesium [Mass/Vol] 274 mg/dL High 40-149 [facility] Comment on above: Result Comment: TRIG LYCERIDE REFERENCE RANGE: 20 YEARS AND OLDER CARDIOVASCULAR RISK LESS THAN 150 mg/dL LOW RISK 150 TO 199 mg/dL BORDERLINE RISK 200 mg/dL AND GREATER HIGH RISK Performed By: #### L [id number] #### [facility] ([facility]) [address] [place] [address] Magnesium [Mass/Vol] 136 mg/dL Normal 0-160 [facility] Comment on above: Performed By: #### L [id number] #### [facility] ([facility]) [address] [place] [address] Magnesium [Mass/Vol] 49 mg/dL Normal 23-92 [facility] Comment on above: Performed By: #### L [id number] #### [facility] ([facility] [address] [place] [address] NON HDL CHOL. (LDL+VLDL) 191 Normal [facility] Comment on above: Performed By: #### L [id number] #### [facility] [address] [place] [address] TOTAL VLDL-C 55 mg/dL High 0-40 [facility] Comment on above: Performed By: #### L [id number] #### [facility] ([facility] [address] [place] [address] [place] 03-31-2023 Lab [id number] Antonio Puri i 1975 F Date Provider Department Center 03/31/2023 2245[facility] Family History Problem Relation Age of Onset Fibromyalgia Mother Heart disease Father Hypertension Sister Polycystic kidney disease Sister Hypertension Brother Polycystic kidney disease Brother Family Status - Relation Status Age at Mother Father Sister Brother Normal [facility] MAGNESIUMon 03-31-2023 Magnesium [Mass/Vol] 1.5 mg/dL Low 1.9-2.7 [facility] Comment on above: Performed By: #### L [id number] #### [facility] ([facility]) [address] [place] [address] PANEL REACTIVE ANTIBODYon HOLD SPECIMEN Hold for add-ons. Normal [facility] Comment on above: Result Comment: Auto resulted. Performed By: #### L [id number] #### [facility] TISSUE TYPING (HISTOTRAC) [address] [place] [address] [place] PHOSPHORUSon 03-31-2023 Magnesium [Mass/Vol] 2.6 mg/dL Normal 2.5-5.0 [facility] Comment on above: Performed By: #### L [id number] #### [facility] ([facility]) [address] [place] [address] SINGLE ANTIGEN CLASS Ion AB SCREEN COMMENTS No Class I donor spe cific antibody identified Normal [facility] Comment on above: Performed By: #### L [id number] ####[facility] TISSUE TYPING (HISTOTRAC)[address] [place] [address] [place] CLASS I TESTED DATE Normal [facility] Comment on above: Performed By: #### L [id number] ####[facility] TISSUE TYPING (HISTOTRAC)[address] [place] [address] [facility] SIGNED BY Signed by Nelson escamilla [facility] PARKER(ASCP), Validation Scientist Transplant Immunology [facility] Comment on above: Result Comment: Clas s I Antigen Microbeads Performed By: #### L [id number] ####[facility] TISSUE TYPING (HISTOTRAC)[address] [place] [address] [facility] Performed By: #### L [id number] #### [facility] ([facility]) [address] [place] [address] SINGLE ANTIGEN CLASS 1 TEST METHOD Class I Single Antigen Normal [facility] Comment on above: Performed By: #### L [id number] ####[facility] TISSUE TYPING ([facility])[address] [place] [address] [facility] SINGLE ANTIGEN CLASS IIon AB SCREEN COMMENTS No Class II donor specific antibody identified Normal [facility] Comment on above: Performed By: #### L [id number] #### [facility] ([facility] [address] [place] [address] CLASS II TESTED DATE [facility] Comment on above: Performed By: #### L [id number] #### [facility] ([facility]) [address] [place] [address] SINGLE ANTIGEN CLASS 2 TEST METHOD Class II Single Antigen Normal [facility] Comment on above: Result Comment: Clas s II Antigen Microbeads Performed By: #### L [id number] #### [facility] [address] [place] [address] TACROLIMUS LEVELon Tacrolimus (Bld) [Mass/Vol] 6.2 ng/mL Normal 5.0-20.0 [facility] Comment on above: Result Comment: The [employer] Tacrolimus assay is a delayed one-step immunoassay for the quantitative determination of tacrolimus in human whole blood using the chemiluminescent microparticle immunoassay (CMIA) technology with flexible assay protocols, referred to as Chemiflex. Performed By: #### L [id number] #### [facility] ([facility]) [address] [place] [address] URIC ACIDon 03-31-2023 Magnesium [Mass/Vol] 5.3 mg/dL Normal 2.3-6.6 [facility] Comment on above: Performed By: #### L [id number] ####[facility] ([facility])[address] [place] [address] PTH INTACTon 07-30-2022 PTH, Intact 107 pg/mL Critically high 15-65 [facility] Comment on above: Performed By: #### M G, URIC, RENAL #### [facility] [address] [address] [address] Hari Palmer FERRITINon 07-29-2022 Ferritin [Mass/Vol] 194.0 ng/mL Critically high 6.2-137.0 [facility] Comment on above: Performed By: #### M G, URIC, RENAL #### [facility] [address] [address] [address] Hari Palmer HEMOGRAM AND PLATELon 2021 Hematocrit (Bld) [Volume fraction] 32.8 % Critically low 36.0-48.0 [facility] Comment on above: Performed By: #### M G, URIC, RENAL #### [facility] [address] [address] [address] Hari Palmer Hemoglobin (Bld) [Mass/Vol] 10.8 g/dL Critically low 12.0-16.[address] [facility] Comment on above: Performed By: #### M G, URIC, RENAL #### [facility] [address] [place] [address] Dr. Hari Palmer MCH (RBC) [Entitic mass] 31.7 pg Normal 26.7-34.0 [facility] Comment on above: Performed By: #### M G, URIC, RENAL #### [facility] [address] [place] [address] Dr. Hari Palmer MCHC (RBC) [Mass/Vol] 32.9 g/dL Normal 29.9-35.[address] [facility] Comment on above: Performed By: #### M G, URIC, RENAL #### [facility] [address] [place] [address] Dr. Hari Palmer MCV (RBC) [Entitic vol] 96.2 fL Normal 81.0-99.0 [facility] Comment on above: Performed By: #### M G, URIC, RENAL #### [facility] [address] [place] [address] Dr. Hari Palmer PLT 297 103/ul Normal 150-[address] [facility] Comment on above: Performed By: #### M G, URIC, RENAL #### [facility] [address] [place] [address] Dr. Hari Palmer RBC 3.41 106/ul Critically low 4.20-5.[address] [facility] Comment on above: Performed By: #### M G, URIC, RENAL #### [facility] [address] [place] [address] Dr. Hari Palmer WBC 7.1 103/ul Normal 4.0-11.[address] [facility] Comment on above: Performed By: #### M G, URIC, RENAL #### [facility] [address] [place] [address] Dr. Hari Palmer IRON AND TIBCon 07-29-2022 % SATURATION 19.0 % Normal [facility] Comment on above: Performed By: #### M G, URIC, RENAL #### [facility] [address] [place] [address] Dr. Hari Palmer Iron [Mass/Vol] 48.0 ug/dL Critically low 50.0-170.[address] [facility] Comment on above: Performed By: #### M G, URIC, RENAL #### [facility] [address] [address] [address] Hari Palmer TIBC DIRECT 252.0 ug/dL Normal 250.0-450.[address] [facility] Comment on above: Performed By: #### M G, URIC, RENAL #### [facility] [address] [place] [address] Dr. Hari Palmer MAGNESIUMon 07-29-2022 Magnesium [Mass/Vol] 2.0 mg/dL Normal 1.8-2.[address] [facility] Comment on above: Performed By: #### M G, URIC, RENAL #### [facility] [address] [place] [address] Dr. Hari Palmer RENAL FUNCTION PANELon 07-29 Albumin [Mass/Vol] 3.6 g/dL Normal 3.4-5.0 [facility] Comment on above: Performed By: #### M G, URIC, RENAL #### [facility] [address] [address] [address] Hari Palmer Calcium [Mass/Vol] 8.7 mg/dL Normal 8.5-10.[address] [facility] Comment on above: Performed By: #### M G, URIC, RENAL #### [facility] [address] [address] [address] Hari Palmer Chloride [Moles/Vol] 104 mmol/L Normal 98-[address] [facility] Comment on above: Performed By: #### M G, URIC, RENAL #### [facility] [address] [address] [address] Hari Palmer CO2 [Moles/Vol] 21.8 mmol/L Normal 21.0-32.[address] [facility] Comment on above: Performed By: #### M G, URIC, RENAL #### [facility] [address] [address] [address] Hari Palmer Creatinine [Mass/Vol] 3.83 mg/dL Critically high 0.55-1.02 [facility] Comment on above: Performed By: #### M G, URIC, RENAL #### [facility] [address] [place] [address] Dr. Hari Palmer EGFR-AF GRENADIAN 15 mL/min/1.73m2 Critically low >=60 [facility] Comment on above: Performed By: #### M G, URIC, RENAL #### [facility] [address] [place] [address] Dr. Hari Palmer EGFR-NON AF GRENADIAN 13 mL/min/1.73m2 Critically low >=60 [facility] Comment on above: Performed By: #### M G, URIC, RENAL #### [facility] [address] [place] [address] Dr. Hari Palmer Glucose [Mass/Vol] 108 mg/dL Critically high 74-106 T [facility] Comment on above: Performed By: #### M G, URIC, RENAL #### [facility] [address] [place] [address] Dr. Hari Palmer Phosphate [Mass/Vol] 5.4 mg/dL Critically high 2.6-4.7 [facility] Comment on above: Performed By: #### M Edy, URIC, RENAL #### [facility] [address] [place] [address] Dr. Hari Palmer Potassium [Moles/Vol] 3.9 mmol/L Normal 3.5-5.1 [facility] Comment on above: Performed By: #### M G, URIC, RENAL #### [facility] [address] [place] [address] Dr. Hari Palmer Sodium [Moles/Vol] 137 mmol/L Normal 136-145 [facility] Comment on above: Performed By: #### M G, URIC, RENAL #### [facility] [address] [place] [address] Dr. Hari Palmer Urea nitrogen [Mass/Vol] 47.0 mg/dL Critically high 7.0-18.0 [facility] Comment on above: Performed By: #### M G, URIC, RENAL #### [facility] [address] [place] [address] Dr. Hari Palmer URIC ACID SERUMon 07-29-2022 Urate [Mass/Vol] 6.3 mg/dL Critically high 2.6-6.0 [facility] Comment on above: Performed By: #### M G, URIC, RENAL #### [facility] [address] [place] [address] Dr. Hari Palmer URINE T PROTEIN CREAT RATIOo n 07-29-2022 Protein (U) [Mass/Vol] 29.7 mg/dL Critically high <=12.0 [facility] Comment on above: Performed By: #### M G, URIC, RENAL #### [facility] [address] [place] [address] Dr. Hari Palmer UR PROT CREAT RAT 0.56 Normal [facility] Comment on above: Performed By: #### M Edy, URIC, RENAL #### [facility] [address] [place] [address] Dr. Hari Palmer URINE CREAT 53.35 mg/dL Normal 20.00-300.00 [facility] Comment on above: Performed By: #### M G, URIC, RENAL #### [facility] [address] [place] [address] Dr. Hari Palmer VITAMIN D 25 OHon 07-29-2022 VIT D 25-OH 38.8 ng/mL Normal [facility] Comment on above: Performed By: #### M Edy, URIC, RENAL #### [facility] [address] [place] [address] Dr. Hari Palmer VIT D RANGES SEE BELOW Normal [facility] Comment on above: Result Comment: <20 ng/mL Vit D deficient 20 - <30 ng/mL Vit D insufficient 30 - 100 ng/mL Vit D sufficient >100 ng/mL Potential Toxicity Performed By: #### M G, URIC, RENAL #### [facility] [address] [place] [address] Dr. Hari Palmer Albumin [Mass/volume] in Ser um or PlasmaOrdered By: Stanley Forman on 06-20-2022 Albumin [Mass/Vol] 3.9 g/dL 3.2-5.5 [facility] Basophils Auto (Bld) [#/Vol] Ordered By: Stanley Forman on 06-20-2022 Basophils (Bld) [#/Vol] 0.1 10*3/uL 0.0-0.2 [facility] Basophils/100 WBC Auto (Bld) Ordered By: Stanley Forman on 06-20-2022 Basophils/100 WBC (Bld) 0.7 % . [facility] Blood hemoglobin measurement (mass/volume)Ordered By: Stanley Forman on 06-20-2022 Hemoglobin (Bld) [Mass/Vol] 10.8 g/dL 11.8-15.4 [facility] Blood leukocytes automated c ount (number/volume)Ordered By: Stanley Forman on 06-20-2022 WBC (Bld) [#/Vol] 11.8 10*3/uL 4.5-11.0 [facility] C reactive protein [Mass/vol ume] in Serum or PlasmaOrdered By: Stanley Forman on 06-20-2022 CRP [Mass/Vol] 5.2 mg/dL 0.0-1.0 [facility] Creatinine and Glomerular fi ltration rate.predicted panel (S/P/Bld)Ordered By: Stanley Forman on 06-20-2022 Creatinine [Mass/Vol] 4.49 mg/dL 0.44-1.03 [facility] Eosinophils Auto (Bld) [#/Vo l]Ordered By: Stanley Forman on 06-20-2022 Eosinophils (Bld) [#/Vol] 0.4 10*3/uL 0.0-0.45 [facility] Eosinophils/100 WBC Auto (Bl d)Ordered By: Stanley Forman on 06-20-2022 Eosinophils/100 WBC (Bld) 3.2 % . [facility] Erythrocyte distribution wid th Auto (RBC) [Ratio]Ordered By: Stanley Forman on 06-20-2022 Erythrocyte distribution width (RBC) [Ratio] 14.0 % 11.9-15.3 [facility] Erythrocyte sedimentation ra te by Photometric methodOrdered By: Stanley Forman on 06-20-2022 ESR Photometric method (Bld) [Velocity] 67 mm/hr 0-19 [facility] Estimated glomerular filtrat ion rate (GFR) non- AmericanOrdered By: Stanley Forman on 06-20-2022 GFR/1.73 sq M.predicted among non-blacks MDRD (S/P/Bld) [Vol rate/Area] 11 mL/Min [facility] Globulin Calc (S) [Mass/Vol] Ordered By: Stanley Forman on 06-20-2022 Globulin (S) [Mass/Vol] 3.5 g/dL [facility] Hematocrit Auto (Bld) [Volum e fraction]Ordered By: Stanley Forman on 06-20-2022 Hematocrit (Bld) [Volume fraction] 33.1 % 34.0-46.4 [facility] - Hematology and Cell countsOrdered By: Stanley Forman on 06-20-2022 Nucleated RBC/100 WBC (Bld) [Ratio] 0.0 % 0-0.5 [facility] Lymphocytes Auto (Bld) [#/Vo l]Ordered By: Stanley Forman on 06-20-2022 Lymphocytes (Bld) [#/Vol] 1.5 10*3/uL 1.00-4.8 [facility] Lymphocytes/100 WBC Auto (Bl d)Ordered By: Stanley Forman on 06-20-2022 Lymphocytes/100 WBC (Bld) 12.3 % . [facility] MCH Auto (RBC) [Entitic mass ]Ordered By: Stanley Forman on 06-20-2022 MCH (RBC) [Entitic mass] 31.1 pg 24.7-34.3 [facility] MCHC Auto (RBC) [Mass/Vol]Or dered By: Stanley Forman on 06-20-2022 MCHC (RBC) [Mass/Vol] 32.5 g/dL 32.0-35.0 [facility] MCV Auto (RBC) [Entitic vol] Ordered By: Stanley Forman on 06-20-2022 MCV (RBC) [Entitic vol] 95.6 fL 80-100 [facility] Monocytes Auto (Bld) [#/Vol] Ordered By: Stanley Forman on 06-20-2022 Monocytes (Bld) [#/Vol] 0.5 10*3/uL 0.0-0.8 [facility] Monocytes/100 WBC Auto (Bld) Ordered By: Stanley Forman on 06-20-2022 Monocytes/100 WBC (Bld) 4.1 % . [facility] Neutrophils Auto (Bld) [#/Vo l]Ordered By: Stanley Forman on 06-20-2022 Neutrophils (Bld) [#/Vol] 9.4 10*3/uL 1.8-7.7 [facility] Neutrophils/100 WBC Auto (Bl d)Ordered By: Stanley Forman on 06-20-2022 Neutrophils/100 WBC (Bld) 79.7 % . [facility] No Panel InformationOrdered By: Stanley Forman on 06-20-2022 Estimated GFR () 13 mL/Min [facility] Comment on above: GFR estimated refere nce range: According to KDOQI guidelines, <60 ml/min/1.73m2 is sufficient to diagnose a patient with chronic kidney disease. Pharmacy Creatinine Clearance (Chem 16.48 [facility] Platelet mean volume Auto (B ld) [Entitic vol]Ordered By: Stanley Forman on 06-20-2022 Platelet mean volume (Bld) [Entitic vol] 7.0 fL 6.3-10.7 [facility] Platelets Auto (Bld) [#/Vol] Ordered By: Stanley Forman on 06-20-2022 Platelets (Bld) [#/Vol] 287 10*3/uL 150-450 [facility] Protein [Mass/volume] in Ser um or PlasmaOrdered By: Stanley Forman on 06-20-2022 Protein [Mass/Vol] 7.4 g/dL 6.1-7.9 [facility] RBC Auto (Bld) [#/Vol]Ordere d By: Stanley Forman on 06-20-2022 RBC (Bld) [#/Vol] 3.46 10*6/uL 3.60-5.00 [facility] Serum or plasma alanine cesar otransferase measurement without P-5'-P (enzymatic activiOrdered By: Stanley Forman on 06-20-2022 ALT No additional P-5'-P [Catalytic activity/Vol] 11 U/L 10-60 [facility] Serum or plasma albumin/glob ulin mass ratioOrdered By: Stanley Forman on 06-20-2022 Albumin/Globulin [Mass ratio] 1.1 {ratio} [facility] Serum or plasma alkaline gina sphatase measurement (enzymatic activity/volume)Ordered By: Stanley Forman on 06-20-2022 ALP [Catalytic activity/Vol] 82 U/L 32-92 [facility] Serum or plasma anion gap de terminationOrdered By: Stanley Forman on 06-20-2022 Anion gap [Moles/Vol] 16.2 mmol/L 6.0-15.0 [facility] Serum or plasma aspartate am inotransferase measurement (enzymatic activity/volume)Ordered By: Stanley Forman on 06-20-2022 AST [Catalytic activity/Vol] 15 U/L 10-42 [facility] Serum or plasma calcium ge urement (mass/volume)Ordered By: Stanley Forman on 06-20-2022 Calcium [Mass/Vol] 9.3 mg/dL 8.2-10.2 [facility] Serum or plasma chloride lee surement (moles/volume)Ordered By: Stanley Forman on 06-20-2022 Chloride [Moles/Vol] 103 mmol/L 95-114 [facility] Serum or plasma glucose ge urement (mass/volume)Ordered By: Stanley Forman on 06-20-2022 Glucose [Mass/Vol] 75 mg/dL 70-100 [facility] Comment on above: ADA recommended refe rence rangeRandom Glucose Reference Range is dependent on time and content of last meal. Glucose of more than 200 mg/dL in a nonstressed, ambulatory subject supports the diagnosis of Diabetes Mellitus. Serum or plasma potassium me asurement (moles/volume)Ordered By: Stanley Forman on 06-20-2022 Potassium [Moles/Vol] 4.3 mmol/L 3.5-5.1 [facility] Serum or plasma sodium measu rement (moles/volume)Ordered By: Stanley Forman on 06-20-2022 Sodium [Moles/Vol] 135 mmol/L 136-146 [facility] Serum or plasma total biliru bin measurement (mass/volume)Ordered By: Stanley Forman on 06-20-2022 Bilirubin [Mass/Vol] 0.3 mg/dL 0.3-1.2 [facility] Serum or plasma total carbon dioxide measurement (moles/volume)Ordered By: Stanley Dickson on 06-20-2022 CO2 [Moles/Vol] 20.1 mmol/L 22.0-30.0 [facility] Serum or plasma urea nitroge n measurement (mass/volume)Ordered By: Stanley Forman on 06-20-2022 Urea nitrogen [Mass/Vol] 42 mg/dL 06-28 [facility] COVID-19 Positive/NegativeOr dered By: Jesus Parham on 06-14-2022 SARS-CoV-2 (COVID-19) N gene AMBERLY+probe Ql (Resp) Negative Negative [facility] Comment on above: Testing for SARS-CoV -2 by RT-PCR This test was developed and its performance characteristics determined by [employer] & [employer] and validated at the [facility]. This test has not been FDA [...] developed and its performance characteristics determined by [employer] and validated at the [facility]. This test has not been FDA [...] Antigen (CA) 125 10.8 U/mL Normal 0.0-38.1 [facility] Comment on above: Result Comment: [employer] Electrochemiluminescence Immunoassay (ECLIA) . Values obtained with different assay methods or kits cannot be used interchangeably. Results cannot be interpreted as absolute evidence of the presence or absence of malignant disease. Performed By: #### M G, URIC, RENAL #### [facility] [address] [address] [address] Hari Palmer CEAon 06-08-2022 CEA 0.9 ng/mL Normal 0.0-4.7 [facility] Comment on above: Result Comment: Nons mokers <3.9 Smokers <5.6 . [employer] Electrochemiluminescence Immunoassay (ECLIA) . Values obtained with different assay methods or kits cannot be used interchangeably. Results cannot be interpreted as absolute evidence of the presence or absence of malignant disease. Performed By: #### C EA. #### [facility] [address] [address] [address] Hari Palmer Basophils Auto (Bld) [#/Vol] Ordered By: Jesus Parham on 06-05-2022 Basophils (Bld) [#/Vol] 0.0 10*3/uL 0.0-0.2 [facility] Basophils/100 WBC Auto (Bld) Ordered By: Jesus Parham on 06-05-2022 Basophils/100 WBC (Bld) 0.3 % . [facility] Blood hemoglobin measurement (mass/volume)Ordered By: Jesus Parham on 06-05-2022 Hemoglobin (Bld) [Mass/Vol] 12.0 g/dL 11.8-15.4 [facility] Blood leukocytes automated c ount (number/volume)Ordered By: Jesus Parham on 06-05-2022 WBC (Bld) [#/Vol] 8.5 10*3/uL 4.5-11.0 [facility] Creatinine and Glomerular fi ltration rate.predicted panel (S/P/Bld)Ordered By: Jesus Parham on 06-05-2022 Creatinine [Mass/Vol] 3.52 mg/dL 0.44-1.03 [facility] Eosinophils Auto (Bld) [#/Vo l]Ordered By: Jesus Parham on 06-05-2022 Eosinophils (Bld) [#/Vol] 0.2 10*3/uL 0.0-0.45 [facility] Eosinophils/100 WBC Auto (Bl d)Ordered By: Jesus Parham on 06-05-2022 Eosinophils/100 WBC (Bld) 2.7 % . [facility] Erythrocyte distribution wid th Auto (RBC) [Ratio]Ordered By: Jesus Parham on 06-05-2022 Erythrocyte distribution width (RBC) [Ratio] 14.2 % 11.9-15.3 [facility] Estimated glomerular filtrat ion rate (GFR) non- AmericanOrdered By: Jesus Parham on 06-05-2022 GFR/1.73 sq M.predicted among non-blacks MDRD (S/P/Bld) [Vol rate/Area] 14 mL/Min [facility] Hematocrit Auto (Bld) [Volum e fraction]Ordered By: Jesus Parham on 06-05-2022 Hematocrit (Bld) [Volume fraction] 35.8 % 34.0-46.4 [facility] - Hematology and Cell countsOrdered By: Jesus Parham on 06-05-2022 Nucleated RBC/100 WBC (Bld) [Ratio] 0.1 % 0-0.5 [facility] Lymphocytes Auto (Bld) [#/Vo l]Ordered By: Jesus Parham on 06-05-2022 Lymphocytes (Bld) [#/Vol] 1.6 10*3/uL 1.00-4.8 [facility] Lymphocytes/100 WBC Auto (Bl d)Ordered By: Jesus Parham on 06-05-2022 Lymphocytes/100 WBC (Bld) 19.3 % . [facility] MCH Auto (RBC) [Entitic mass ]Ordered By: Jesus Parham on 06-05-2022 MCH (RBC) [Entitic mass] 31.5 pg 24.7-34.3 [facility] MCHC Auto (RBC) [Mass/Vol]Or dered By: Jesus Parham on 06-05-2022 MCHC (RBC) [Mass/Vol] 33.3 g/dL 32.0-35.0 [facility] MCV Auto (RBC) [Entitic vol] Ordered By: Jesus Parham on 06-05-2022 MCV (RBC) [Entitic vol] 94.4 fL 80-100 [facility] Monocytes Auto (Bld) [#/Vol] Ordered By: Jesus Parham on 06-05-2022 Monocytes (Bld) [#/Vol] 0.3 10*3/uL 0.0-0.8 [facility] Monocytes/100 WBC Auto (Bld) Ordered By: Jesus Parham on 06-05-2022 Monocytes/100 WBC (Bld) 3.9 % . [facility] Neutrophils Auto (Bld) [#/Vo l]Ordered By: Jesus Parham on 06-05-2022 Neutrophils (Bld) [#/Vol] 6.2 10*3/uL 1.8-7.7 [facility] Neutrophils/100 WBC Auto (Bl d)Ordered By: Jesus Parham on 06-05-2022 Neutrophils/100 WBC (Bld) 73.8 % . [facility] No Panel InformationOrdered By: Jesus Parham on 06-05-2022 Estimated GFR () 17 mL/Min [facility] Comment on above: GFR estimated refere nce range: According to KDOQI guidelines, <60 ml/min/1.73m2 is sufficient to diagnose a patient with chronic kidney disease. Pharmacy Creatinine Clearance (Chem N/A [facility] Platelet mean volume Auto (B ld) [Entitic vol]Ordered By: Jesus Parham on 06-05-2022 Platelet mean volume (Bld) [Entitic vol] 7.3 fL 6.3-10.7 [facility] Platelets Auto (Bld) [#/Vol] Ordered By: Jesus Parham on 06-05-2022 Platelets (Bld) [#/Vol] 312 10*3/uL 150-450 [facility] RBC Auto (Bld) [#/Vol]Ordere d By: Jesus Parham on 06-05-2022 RBC (Bld) [#/Vol] 3.80 10*6/uL 3.60-5.00 [facility] Serum or plasma anion gap de terminationOrdered By: Jesus Parham on 06-05-2022 Anion gap [Moles/Vol] 15.1 mmol/L 6.0-15.0 [facility] Serum or plasma calcium ge urement (mass/volume)Ordered By: Jesus Parham on 06-05-2022 Calcium [Mass/Vol] 9.5 mg/dL 8.2-10.2 [facility] Serum or plasma chloride lee surement (moles/volume)Ordered By: Jesus Parham on 06-05-2022 Chloride [Moles/Vol] 106 mmol/L 95-114 [facility] Serum or plasma glucose ge urement (mass/volume)Ordered By: Jesus Parham on 06-05-2022 Glucose [Mass/Vol] 91 mg/dL 70-100 [facility] Comment on above: ADA recommended [...] on 06-05-2022 Potassium [Moles/Vol] 4.4 mmol/L 3.5-5.1 [facility] Serum or plasma sodium measu rement (moles/volume)Ordered By: Jesus Parham on 06-05-2022 Sodium [Moles/Vol] 137 mmol/L 136-146 [facility] Serum or plasma total carbon dioxide measurement (moles/volume)Ordered By: Jesus Parham on 06-05-2022 CO2 [Moles/Vol] 20.3 mmol/L 22.0-30.0 [facility] Serum or plasma urea nitroge n measurement (mass/volume)Ordered By: Jesus Parham on 06-05-2022 Urea nitrogen [Mass/Vol] 38 mg/dL 9- [facility] PTH INTACTon 04-29-2022 PTH, Intact 191 pg/mL Critically high 15-[address] [facility] Comment on above: Performed By: #### M G, URIC, RENAL #### [facility] [address], [place] [address] Dr. Hari Palmer VIT D 25-OH [facility]Pon 2021 Vitamin D, 25-Hydroxy 33.6 ng/mL Normal 30.0-100.0 [facility] Comment on above: Result Comment: Ning min D deficiency has been defined by the [place] [employer] and an Endocrine Society practice guideline as a level of serum 25-OH vitamin D less than 20 ng/mL (1,2). The Endocrine Society went on to further define vitamin D insufficiency as a level between 21 and 29 ng/mL (2). 1. IOM ([place]). 2010. Dietary reference intakes for calcium and D. [place]: The National Academies Press. 2. Chantel MF, Landen [place], Eliseo STEPHENS, et al. Evaluation, treatment, and prevention of vitamin D deficiency: an Endocrine Society clinical practice guideline. JCEM. 2010; 96(7):1911-30. Performed By: #### M G, URIC, RENAL #### [facility] [address], [place] [address] Dr. Hari Palmer ABO AND RH TYPEon 04-27-2022 ABO and Rh group Nom (Bld) ABO Rh Typing O Rh Positive Normal [facility] Comment on above: Performed By: #### M G, URIC, RENAL #### [facility] [address], [place] [address] Dr. Hari Palmer FERRITINon 04-27-2022 Ferritin [Mass/Vol] 273.0 ng/mL Critically high 6.2-137.[address] [facility] Comment on above: Performed By: #### M G, URIC, RENAL #### [facility] [address] [place] [address] Dr. Hari Palmer HEMOGRAM AND PLATELon 2021 Hematocrit (Bld) [Volume fraction] 33.9 % Critically low 36.0-48.[address] [facility] Comment on above: Performed By: #### M G, URIC, RENAL #### [facility] [address] [place] [address] Dr. Hari Palmer Hemoglobin (Bld) [Mass/Vol] 11.4 g/dL Critically low 12.0-16.[address] [facility] Comment on above: Performed By: #### M G, URIC, RENAL #### [facility] [address] [place] [address] Dr. Hari Palmer MCH (RBC) [Entitic mass] 31.7 pg Normal 26.7-34.[address] [facility] Comment on above: Performed By: #### M G, URIC, RENAL #### [facility] [address] [place] [address] Dr. Hari Palmer MCHC (RBC) [Mass/Vol] 33.6 g/dL Normal 29.9-35.[address] [facility] Comment on above: Performed By: #### M G, URIC, RENAL #### [facility] [address] [place] [address] Dr. Hari Palmer MCV (RBC) [Entitic vol] 94.2 fL Normal 81.0-99.[address] [facility] Comment on above: Performed By: #### M G, URIC, RENAL #### [facility] [address] [place] [address] Dr. Hari Palmer PLT 333 103/ul Normal 150-[address] [facility] Comment on above: Performed By: #### M G, URIC, RENAL #### [facility] [address] [place] [address] Dr. Hari Palmer RBC 3.60 106/ul Critically low 4.20-5.[address] [facility] Comment on above: Performed By: #### M G, URIC, RENAL #### [facility] [address] [place] [address] Dr. Hari Palmer WBC 9.7 103/ul Normal 4.0-11.0 [facility] Comment on above: Performed By: #### M G, URIC, RENAL #### [facility] [address] [place] [address] Dr. Hari Palmer IRON AND TIBCon 04-27-2022 % SATURATION 20.1 % Normal [facility] Comment on above: Performed By: #### M G, URIC, RENAL #### [facility] [address] [place] [address] Dr. Hari Palmer Iron [Mass/Vol] 57.0 ug/dL Normal 50.0-170.[address] [facility] Comment on above: Performed By: #### M G, URIC, RENAL #### [facility] [address] [place] [address] Dr. Hari Palmer TIBC DIRECT 283.0 ug/dL Normal 250.0-450.0 [facility] Comment on above: Performed By: #### M G, URIC, RENAL #### [facility] [address] [place] [address] Dr. Hari Palmer MAGNESIUMon 04-27-2022 Magnesium [Mass/Vol] 2.1 mg/dL Normal 1.8-2.[address] [facility] Comment on above: Performed By: #### R ENAL, URIC, MG #### [facility] [address] [place] [address] Dr. Hari Palmer RENAL FUNCTION PANELon 04-27 Albumin [Mass/Vol] 3.6 g/dL Normal 3.4-5.[address] [facility] Comment on above: Performed By: #### R ENAL, URIC, MG #### [facility] [address] [place] [address] Dr. Hari Palmer Calcium [Mass/Vol] 9.0 mg/dL Normal 8.5-10.[address] [facility] Comment on above: Performed By: #### R ENAL, URIC, MG #### [facility] [address] [address] [address] Hari Palmer Chloride [Moles/Vol] 104 mmol/L Normal 98-107 [facility] Comment on above: Performed By: #### R ENAL, URIC, MG #### [facility] [address] [address] [address] Hari Palmer CO2 [Moles/Vol] 23.0 mmol/L Normal 21.0-32.0 [facility] Comment on above: Performed By: #### R ENAL, URIC, MG #### [facility] [address] [address] [address] Hari Palmer Creatinine [Mass/Vol] 3.38 mg/dL Critically high 0.55-1.02 [facility] Comment on above: Performed By: #### R ENAL, URIC, MG #### [facility] [address] [place] [address] Dr. Hari Pamler EGFR-AF GRENADIAN 18 mL/min/1.73m2 Critically low >=60 [facility] Comment on above: Performed By: #### R ENAL, URIC, MG #### [facility] [address] [address] [address] Hari Palmer EGFR-NON AF [place] 15 mL/min/1.73m2 Critically low >=60 [facility] Comment on above: Performed By: #### R ENAL, URIC, MG #### [facility] [address] [address] [address] Hari Palmer Glucose [Mass/Vol] 113 mg/dL Critically high 74-106 [facility] Comment on above: Performed By: #### R ENAL, URIC, MG #### [facility] [address] [address] [address] Hari Palmer Phosphate [Mass/Vol] 4.4 mg/dL Normal 2.6-4.7 [facility] Comment on above: Performed By: #### R ENAL, URIC, MG #### [facility] [address] [address] [address] Hari Palmer Potassium [Moles/Vol] 4.0 mmol/L Normal 3.5-5.1 [facility] Comment on above: Performed By: #### R ENAL, URIC, MG #### [facility] [address] [place] [address] Dr. Hari Palmer Sodium [Moles/Vol] 137 mmol/L Normal 136-145 [facility] Comment on above: Performed By: #### R ENAL, URIC, MG #### [facility] [address] [place] [address] Dr. Hari Palmer Urea nitrogen [Mass/Vol] 44.0 mg/dL Critically high 7.0-18.[address] [facility] Comment on above: Performed By: #### R ENAL, URIC, MG #### [facility] [address] [place] [address] Dr. Hari Palmer URIC ACID SERUMon 04-27-2022 Urate [Mass/Vol] 6.6 mg/dL Critically high 2.6-6.0 [facility] Comment on above: Performed By: #### R ENAL, URIC, MG #### [facility] [address] [place] [address] Dr. Hari Palmer URINE T PROTEIN CREAT RATIOo n 04-27-2022 Protein (U) [Mass/Vol] 31.4 mg/dL Critically high <=12.0 [facility] Comment on above: Performed By: #### M G, URIC, RENAL #### [facility] [address] [place] [address] Dr. Hari Palmer UR PROT CREAT RAT 0.55 Normal [facility] Comment on above: Performed By: #### M G, URIC, RENAL #### [facility] [address] [place] [address] Dr. Hari Palmer URINE CREAT 57.50 mg/dL Normal 20.00-300.[address] [facility] Comment on above: Performed By: #### M G, URIC, RENAL #### [facility] [address] [place] [address] Dr. Hari Palmer ECHOCARDIO M/2D COMPLETEon 0 03-29-2022 ECHOCARDIO M/2D COMPLETE Patient: MANDEEP PURISon Exam Date: 03/29/2022 : 1975 Gender:F Ordering : HAIDER FRENCH M.D. Admission #: [id number] Family : Order #: [id number] CLICK HERE TO VIEW EXAM ECHOCARDIOGRAM REPORT [...] Area(A4C): 17.00 cm2 Left Atrium Systolic Volume(A2C): 99926 mm3 Left Atrium Systolic Volume(A4C): 28462 mm3 Mitral Valve MV E to A Ratio: 0.80 Deceleration [place]: 3210 mm/s2 Mitral Valve A-Wave Peak Velocity: [...] Alonzo M.D. on 04/01/2022 at 12:33 Normal [facility] COVID-19 SOFIAOrdered By: Mary Beth Jones on 03-28-2022 SARS-CoV+SARS-CoV-2 (COVID-19) Ag IA.rapid Ql (Resp) Negative Negative [facility] Comment on above: This is a duplicate Ada SARS Antigen (GLORIA) result to be used for statistical tracking purpose only. No Panel InformationOrdered By: Shabbir Jones on 03-28-2022 SARS Antigen (LFIA) [facility] BLOOD TYPE AND RHon 02-13-20 ABO INTERPRETATION O Normal The [facility] Comment on above: Performed By: #### 3 1397, 23043, 21571, 89844, 51197 #### [facility] [address] [place] [address], [facility] RH INTERPRETATION Positive Normal [facility] Comment on above: Performed By: #### 3 1397, 93874, 50522, 48011, 10139 #### [facility] [address] [place] [address], [place] BNP (B-TYPE NATRIURETIC PEPT JOEL)on 02-12-2022 Natriuretic peptide B (Bld) [Mass/Vol] 10 pg/mL Normal 0-100 [facility] Comment on above: Result Comment: Give n the appropriate clinical setting a BNP result of >100 pg/mL indicates congestive heart failure. Performed By: #### 8 5123, 26497 #### [facility] [address] [facility]. [address] CBC W/DIFFon 02-12-2022 ABS IMM GRANS 0.2 10*3/uL Normal 0.0-0.2 The [facility] Comment on above: Performed By: #### 3 1397, 93671, 16477, 54996, 84792 #### [facility] [address] ABS NEUTROPHILS 7.8 10*3/uL High 1.6-7.6 [facility] Comment on above: Performed By: #### 3 1397, 84739, 91994, 35926, 77227 #### [facility] [address] Basophils (Bld) [#/Vol] 0.1 10*3/uL Normal 0.0-0.2 [facility] Comment on above: Performed By: #### 3 1397, 57136, 64380, 74907, 68246 #### [facility] [address] Basophils/100 WBC (Bld) 0.6 % Normal 0.0-1.0 [facility] Comment on above: Performed By: #### 3 1397, 62223, 06801, 85656, 55993 #### [facility] [address] [place] [address], [facility] Eosinophils (Bld) [#/Vol] 0.3 10*3/uL Normal 0.0-0.5 [facility] Comment on above: Performed By: #### 3 1397, 95635, 50837, 25161, 03672 #### [facility] [address] [place] [address], [facility] Eosinophils/100 WBC (Bld) 2.5 % Normal 0.0-6.0 [facility] Comment on above: Performed By: #### 3 1397, 29057, 19774, 49743, 90142 #### [facility] [address] [facility] [address] Erythrocyte distribution width (RBC) [Ratio] 13.6 % Normal 11.5-15.0 The [facility] Comment on above: Performed By: #### 3 1397, 86698, 27779, 43229, 42470 #### [facility] [address] [facility] [address] Hematocrit (Bld) [Volume fraction] 34.5 % Low 36.0-45.0 [facility] Comment on above: Performed By: #### 3 1397, 84431, 94315, 95401, 51292 #### [facility] [address] [facility] Hemoglobin (Bld) [Mass/Vol] 11.3 g/dL Low 12.0-15.0 The [facility] Comment on above: Performed By: #### 3 1397, 26629, 08945, 14476, 45700 #### [facility] [address] [place] [address], [facility] IMMATURE GRANS 1.4 % High 0.0-1.0 The [facility] Comment on above: Performed By: #### 3 1397, 15694, 40694, 47435, 03145 #### [facility] [address] [place] [address], [facility] Lymphocytes (Bld) [#/Vol] 2.0 10*3/uL Normal 1.2-4.0 The [facility] Comment on above: Performed By: #### 3 1397, 43711, 44381, 37854, 89686 #### [facility] [address] [place] [address], [facility] Lymphocytes/100 WBC (Bld) 18.6 % Low 20.0-45.0 The [facility] Comment on above: Performed By: #### 3 1397, 20389, 20934, 05711, 63051 #### [facility] [address] [place] [address], [facility] MCH (RBC) [Entitic mass] 31.3 pg Normal 27.0-33.0 The [facility] Comment on above: Performed By: #### 3 1397, 12445, 11562, 33537, 11154 #### [facility] [address] [place] [address], [facility] MCHC (RBC) [Mass/Vol] 32.8 g/dL Normal 32.0-35.0 The [facility] Comment on above: Performed By: #### 3 1397, 57839, 17747, 39070, 38860 #### [facility] [address] [place] [address], [facility] MCV (RBC) [Entitic vol] 95.6 fL Normal 82.0-98.0 The [facility] Comment on above: Performed By: #### 3 1397, 38768, 44818, 99958, 24005 #### [facility] [address] [place] [address], [facility] Monocytes (Bld) [#/Vol] 0.5 10*3/uL Normal 0.1-1.0 The [facility] Comment on above: Performed By: #### 3 1397, 31779, 01662, 70752, 06529 #### [facility] [address] [facility] [address], [facility] MONOS 4.9 % Low 5.0-12.0 The [facility] Comment on above: Performed By: #### 3 1397, 33517, 17391, 36425, 87043 #### [facility] [address] [facility] [place] [address], [facility] Neutrophils/100 WBC (Bld) 72.0 % Normal 40.0-72.0 The [facility] Comment on above: Performed By: #### 3 1397, 06109, 97639, 64702, 96713 #### [facility] [address] [facility] [place] [address], [facility] Nucleated RBC/100 WBC (Bld) [Ratio] 0 % Normal 0-0 The [facility] Comment on above: Performed By: #### 3 1397, 67284, 44510, 11509, 77599 #### [facility] [address] [facility] [place] [address], [facility] PLAT CNT 315 10*3/uL Normal 150-400 The [facility] Comment on above: Performed By: #### 3 1397, 38918, 30299, 19105, 46623 #### [facility] [address] [facility] [place] [address], [facility] RBC (Bld) [#/Vol] 3.61 10*6/uL Low 3.80-5.00 The [facility] Comment on above: Performed By: #### 3 1397, 56724, 40761, 57677, 22642 #### [facility] [address] [facility] [place] [address], [facility] WBC (Bld) [#/Vol] 10.78 10*3/uL High 4.00-10.60 The [facility] Comment on above: Performed By: #### 3 1397, 59528, 38515, 54288, 06043 #### [facility] [address] [place] [address], [facility] CHEST AND LATERALon 02-13-20 CHEST AND LATERAL [facility] Department of Radiology [address] [place] [id number] Patient Name: MANDEEP PURI : 1975 Sex: F Age: Race: White Pt. Location: Patient Status: D Ordered Date: 02/12/2022 1:55:00 [...] pathology. Electronically signed: Royal Dominguez. Transcribed by: [id number], User Resident: Electronically Signed by: ROYAL DOMINGUEZ @ 02/13/2022 11:48 AM Normal The [facility] CMV IGG BLOODon 02-12-2022 CMV IGG 3.13 Normal The [facility] Comment on above: Result Comment: NORM AL RANGES: < OR = 0.9O NEGATIVE ; NO DETECTABLE IgG ANTIBODY TO CMV 0.91 - 1.09 EQUIVOCAL; REPEAT TESTING SUGGESTED > OR = 1.10 POSITIVE ; INDICATES PRESENCE OF DETECTABLE IgG ANTIBODY TO CMV Performed By: #### 3 1397, 62165, 11485, 73804, 15288 #### [facility] [address] [place] [address], [facility] COMP METABOLIC PANELon 02-12 Albumin [Mass/Vol] 4.5 g/dL Normal 3.5-5.7 The [facility] Comment on above: Performed By: #### 2 2505, 03480, 90170 #### [facility] [address] [place] [address], [place] ALKALINE PHOSPH 89 IU/L Normal 34-104 The [facility] Comment on above: Performed By: #### 2 2505, 19385, 03180 #### [facility] [address] [place] [address], [place] ALT [Catalytic activity/Vol] 12 U/L Normal 7-52 The [facility] Comment on above: Performed By: #### 2 2505, 45721, 07612 #### [facility] [address] [place] [address], [place] AST [Catalytic activity/Vol] 13 U/L Normal 13-39 The [facility] Comment on above: Performed By: #### 2 2505, 50163, 17868 #### [facility] [address] [place] [address], [place] Bilirubin [Mass/Vol] 0.3 mg/dL Normal 0.3-1.0 The [facility] Comment on above: Performed By: #### 2 2505, 25168, 98692 #### [facility] [address] [place] [address], [place] Calcium [Mass/Vol] 9.5 mg/dL Normal 8.6-10.3 The [facility] Comment on above: Performed By: #### 2 2505, 07051, 02145 #### [facility] [address] [place] [address], [place] Chloride [Moles/Vol] 103 mmol/L Normal 98-107 The [facility] Comment on above: Performed By: #### 2 2505, 15611, 26260 #### [facility] [address] [place] [address], [facility] CO2 [Moles/Vol] 22 mmol/L Normal 21-31 The [facility] Comment on above: Performed By: #### 2 2505, 74536, 35735 #### [facility] [address] [place] [address], [facility] Creatinine [Mass/Vol] 3.51 mg/dL High 0.60-1.20 The [facility] Comment on above: Performed By: #### 2 2505, 22844, 43104 #### [facility] [address] [place] [address], [facility] eGFR- 17 ml/min/1.73sq m Abnormal >60 The [facility] Comment on above: Performed By: #### 2 2505, 98322, 20725 #### [facility] [address] [place] [address], [place] eGFR- non- 14 ml/min/1.73sq m Abnormal >60 The [facility] Comment on above: Performed By: #### 2 2505, 01991, 25947 #### [facility] [address] [place] [address], [place] Glucose [Mass/Vol] 100 mg/dL Normal 70-100 The [facility] Comment on above: Performed By: #### 2 2505, 43077, 41892 #### [facility] [address] [place] [address], [place] Potassium [Moles/Vol] 3.9 mmol/L Normal 3.5-5.1 The [facility] Comment on above: Performed By: #### 2 2505, 42426, 99582 #### [facility] [address] [place] [address], [facility] Protein [Mass/Vol] 8.0 g/dL Normal 6.0-8.3 The [facility] Comment on above: Performed By: #### 2 2505, 96842, 96701 #### [facility] [address] [place] [address], [place] Sodium [Moles/Vol] 136 mmol/L Normal 136-145 The [facility] Comment on above: Performed By: #### 2 2505, 17383, 93621 #### [facility] [address] [place] [address], [facility] Urea nitrogen [Mass/Vol] 41 mg/dL High 7-25 The [facility] Comment on above: Performed By: #### 2 2505, 84257, 34776 #### [facility] [address] [place] [address], [facility] CREATININE URINE RANDOMon Creatinine (U) [Mass/Vol] 63.0 mg/dL Normal The [facility] Comment on above: Result Comment: Ther e are no established reference values for random urine specimens Performed By: #### 3 1397, 29666, 12591, 42042, 66261 #### [facility] [address] [place] [address], [facility] CT RENAL RECIPIENT ABDOMEN A ND PEVLIS WO CONTRASTon 02-12-2022 CT RENAL RECIPIENT ABDOMEN AND PEVLIS WO CONTRAST [facility] Department of Radiology [address] [place] [id number] Patient Name: MANDEEP PURI : 1975 Sex: F Age: Race: White Pt. Location: 20 Patient Status: O Ordered Date: 02/12/2022 1:55:00 PM Completed Date: 02/12/2022 02:04 PM Requesting Provider: HAIDER FRENCH Attending Provider: HAIEDR FRENCH Report Copy To: Signs & Symptoms: Z01.818 Encounter for other preprocedural examination I10 History: [place] Comments: , Pre-kidney transplant work-up. Please evaluate [...] achievable. Electronically signed: NAN SARAVIA. Transcribed by: [email or web address], User Resident: Electronically Signed by: NAN SARAVIA @ 02/12/2022 02:59 PM Normal The [facility] Comment on above: Order Comment: , Pre [...] Bilirubin.direct [Mass/Vol] 0.0 mg/dL Normal 0.0-0.2 The [facility] Comment on above: Performed By: #### 2 2505, 30335, 27237 #### [facility] [address] [place] [address], [facility] BRETT LAGUERRE VIRUS ABon - EB VCA IGG 2.35 Normal The [facility] Comment on above: Order Comment: CONSI STENT WITH PAST EBV INFECTION Result Comment: NORM AL RANGES: < OR = 0.9O NEGATIVE ; NO DETECTABLE IgG ANTIBODY TO EBV-VCA 0.91 - 1.09 EQUIVOCAL; REPEAT TESTING SUGGESTED > OR = 1.10 POSITIVE ; INDICATES PRESENCE OF DETECTABLE IgG ANTIBODY TO EBV Performed By: #### 3 1397, 83489, 23193, 53615, 33926 #### [facility] [address] EB VCA IGM 0.00 Normal The [facility] Comment on above: Order Comment: CONSI STENT WITH PAST EBV INFECTION Result Comment: NORM AL RANGES: < OR = 0.9O NEGATIVE ; NO SIGNIFICANT LEVEL OF DETECTABLE EBV-VCA IgM AB 0.91 - 1.09 EQUIVOCAL; REPEAT TESTING SUGGESTED > OR = 1.10 POSITIVE ; SIGNIFICANT LEVEL OF DETECTABLE EBV-VCA IgM AB Performed By: #### 3 1397, 63681, 87949, 19067, 06565 #### [facility] [address] HEMOGLOBIN A1Con 02-12-2022 Glucose [Moles/Vol] 120 mmol/L Normal The [facility] Comment on above: Performed By: #### 8 5123, 22590 #### [facility] [address] HbA1c (Bld) [Mass fraction] 5.8 % Normal 4.0-6.0 The [facility] Comment on above: Performed By: #### 8 5123, 70302 #### [facility] [address] HEPATITIS A ANTIBODY IGMon 0 02-12-2022 HEP A AB IGM Non-Reactive Normal NONREACTIVE The [facility] Comment on above: Performed By: #### 3 1397, 37328, 01244, 29256, 49997 #### [facility] [address] [facility]. [address] HEPATITIS B CORE ANTIBODYon 02-12-2022 HEP B CORE AB Non-Reactive Normal NONREACTIVE The [facility] Comment on above: Performed By: #### 3 1397, 18356, 92890, 50395, 62196 #### [facility] [address] [place] [address], [facility] HEPATITIS B SURFACE ANTIBODY QUANTon 02-12-2022 HEP B SURF AB 1.14 mIU/ml Normal The [facility] Comment on above: Result Comment: INTE RPRETATION: NONREACTIVE<8.00 mIU/mL INDETERMINATE8.00 - 12.00 mIU/mL REACTIVE>12 mIU/mL Performed By: #### 3 1397, 99045, 15835, 76504, 23472 #### [facility] [address] [place] [address], [facility] HEPATITIS B SURFACE ANTIGEN QUALon 02-12-2022 HEP B SURF AG QUAL Non-Reactive Normal NONREACTIVE The [facility] Comment on above: Performed By: #### 3 1397, 16693, 75675, 09035, 82246 #### [facility] [address] [facility] [place] [address], [facility] HEPATITIS C ANTIBODYon 02-12 ANTI-HCV Non-Reactive Normal NONREACTIVE The [facility] Comment on above: Performed By: #### 3 1397, 77808, 99619, 71676, 70116 #### [facility] [address] [facility]. [address] HIV1 AND 2 COMBO 4Gon 2021 HIV COMBO Negative Normal NEGATIVE The [facility] Comment on above: Performed By: #### 3 1397, 64162, 12741, 86482, 67233 #### [facility] [address] [facility]. [address] HLA ABC CLASS I TYPINGon A*-1 EQUIVALENT 1 Normal The [facility] Comment on above: Order Comment: Some of [...] to frequency. Performed By: #### 3 1397, 55357, 51308, 50174, 63333 #### [facility] [address] [place] [address], [facility] A*-2 EQUIVALENT [address] [facility] Comment on above: Order Comment: [...] to frequency. Performed By: #### 3 1397, 50190, 71485, 50956, 95143 #### [facility] [address] [place] [address], [facility] B*-1 EQUIVALENT 35 Normal The [facility] Comment on above: Order Comment: Some of [...] to frequency. Performed By: #### 3 1397, 38347, 75726, 01082, 84700 #### [facility] [address] [place] [address], [facility] B*-2 EQUIVALENT 37 Normal The [facility] Comment on above: Order Comment: Some of [...] to frequency. Performed By: #### 3 1397, 23264, 12209, 12647, 90904 #### [facility] [address] [place] [address], [facility] Bw*-1 EQUIVALENT [address] [facility] Comment on above: Order Comment: [...] to frequency. Performed By: #### 3 1397, 87062, 79614, 32672, 88539 #### [facility] [address] [place] [address], [facility] Bw*-2 EQUIVALENT 6 Normal The [facility] Comment on above: Order Comment: Some of [...] to frequency. Performed By: #### 3 1397, 43159, 69782, 39639, 46759 #### [facility] [address] [place] [address], [place] C*-1 EQUIVALENT 4 Normal The [facility] Comment on above: Order Comment: Some of [...] to frequency. Performed By: #### 3 1397, 35638, 62264, 57843, 15891 #### [facility] [address] C*-2 EQUIVALENT [address] [facility] Comment on above: Order Comment: [...] to frequency. Performed By: #### 3 1397, 43964, 36125, 92984, 10708 #### [facility] [address] METHOD Class I Typing by PCR-SSOP Luminex Normal The [facility] Comment on above: Order Comment: Some of [...] to frequency. Performed By: #### 3 1397, 27025, 48669, 51711, 19267 #### [facility] [address] SIGNED BY Normal The [facility] Comment on above: Order Comment: Some of [...] to frequency. Result Comment: Nelson Noriega, MS,CHT(DONA),MT(ASCP) Validation Scientist, Transplant Immunology Performed By: #### 3 1397, 64961, 21579, 93302, 67558 #### [facility] [address] [place] [address], [facility] HLA DR CLASS II TYPINGon DPB1*-1 EQUIVALENT 04:01 Normal The [facility] Comment on above: Order Comment: Some of [...] to frequency. Performed By: #### 3 1397, 78320, 98926, 19192, 10471 #### [facility] [address] [facility] [place] [address], [facility] DPB1*-2 EQUIVALENT 04:02 Normal The [facility] Comment on above: Order Comment: Some of [...] to frequency. Performed By: #### 3 1397, 92758, 98684, 40096, 14877 #### [facility] [address] [place] [address], [facility] DQA1*-1 EQUIVALENT 01 Normal The [facility] Comment on above: Order Comment: Some of [...] to frequency. Performed By: #### 3 1397, 79013, 54822, 66973, 77287 #### [facility] [address] [place] [address], [place] DQA1*-2 EQUIVALENT 05 Normal The [facility] Comment on above: Order Comment: Some of [...] to frequency. Performed By: #### 3 1397, 95391, 55946, 56377, 24105 #### [facility] [address] [facility] [place] [address], [place] DQB1*-1 EQUIVALENT 7 Normal The [facility] Comment on above: Order Comment: Some of [...] to frequency. Performed By: #### 3 1397, 13709, 44362, 87614, 90554 #### [facility] [address] [place] [address], [place] DQB1*-2 EQUIVALENT 5 Normal The [facility] Comment on above: Order Comment: Some of [...] to frequency. Performed By: #### 3 1397, 22051, 53323, 49417, 02911 #### [facility] [address] [place] [address], [facility] DRB1*-1 EQUIVALENT 10 Normal The [facility] Comment on above: Order Comment: Some of [...] to frequency. Performed By: #### 3 1397, 72015, 38724, 08597, 53027 #### [facility] [address] [place] [address], [facility] DRB1*-2 EQUIVALENT 11 Normal The [facility] Comment on above: Order Comment: Some of [...] to frequency. Performed By: #### 3 1397, 74377, 41224, 05631, 34072 #### [facility] [address] [place] [address], [facility] DRB3*-1 EQUIVALENT 52 Normal The [facility] Comment on above: Order Comment: Some of [...] to frequency. Performed By: #### 3 1397, 85864, 87206, 91614, 24853 #### [facility] [address] METHOD Class II Typing by PCR-SSOP Luminex Normal The [facility] Comment on above: Order Comment: Some of [...] to frequency. Performed By: #### 3 1397, 87147, 62740, 18669, 70790 #### [facility] [address] LIPID PROFILEon 02-12-2022 Cholesterol [Mass/Vol] 221 mg/dL High 120-200 Th e [facility] Comment on above: Result Comment: CHOL ESTEROL REFERENCE RANGE: 20 YEARS AND OLDER CARDIOVASCULAR RISK Less than 200 mg/dl Low Risk 200 to 239 mg/dl Borderline Risk 240 mg/dl and greater High Risk Performed By: #### 3 1397, 62318, 82850, 56123, 55739 #### [facility] [address] Cholesterol in HDL [Mass/Vol] 40 mg/dL Normal 23-92 The [facility] Comment on above: Result Comment: Slig ht variation in normal range could be due to gender and/or age. HDL CHOLESTEROL REFERENCE RANGE: 20 years and older Cardiovascular Risk > or =60 mg/dL Desirable 40 TO 59 mg/dL Low Risk <40 mg/dL High Risk Performed By: #### 3 1397, 15252, 20768, 94974, 78362 #### [facility] [address] [place] [address], [facility] Cholesterol in LDL [Mass/Vol] 101 mg/dL Normal 0-130 The [facility] Comment on above: Result Comment: LDL IS A CALCULATION LDL IS ONLY VALID IF THE TRIG IS LESS THAN 400. Performed By: #### 3 1397, 20841, 83964, 70959, 36031 #### [facility] [address] [place] [address], [facility] Cholesterol.total/Chol esterol in HDL [Mass ratio] 5.5 {ratio} High .0-4.5 The [facility] Comment on above: Performed By: #### 3 1397, 54230, 32365, 80952, 63213 #### [facility] [address] NON-HDL CHOLESTEROL 181 mg/dL Normal The [facility] Comment on above: Performed By: #### 3 1397, 66471, 31316, 39871, 45152 #### [facility] [address] Triglyceride [Mass/Vol] 402 mg/dL High 40-149 The [facility] Comment on above: Result Comment: TRIG LYCERIDE REFERENCE RANGE: 20 YEARS AND OLDER CARDIOVASCULAR RISK LESS THAN 150 mg/dl LOW RISK 150 TO 199 mg/dl BORDERLINE RISK 200 mg/dl AND GREATER HIGH RISK Performed By: #### 3 1397, 16443, 41699, 03894, 71910 #### [facility] [address] [place] [address], [facility] VLDL CHOL 80 mg/dL High 0-40 The [facility] Comment on above: Performed By: #### 3 1397, 49089, 67953, 17642, 37127 #### [facility] [address] [place] [address], [facility] MUMPS IGG BLDon 02-12-2022 MUMPS IGG 5.46 Normal The [facility] Comment on above: Result Comment: NORM AL RANGES: < OR = 0.9O NEGATIVE ; NO DETECTABLE IgG ANTIBODY TO MUMPS 0.91 - 1.09 EQUIVOCAL; REPEAT TESTING SUGGESTED > OR = 1.10 POSITIVE ; INDICATES PRESENCE OF DETECTABLE IgG ANTIBODY TO MUMPS Performed By: #### 3 1397, 16303, 44138, 54011, 28938 #### [facility] [address] RUBELLAon 02-12-2022 RUBELLA 4.79 Normal The [facility] Comment on above: Result Comment: NORM AL RANGES: < OR = 0.9O NEGATIVE ; NO DETECTABLE IgG ANTIBODY TO RUBELLA 0.91 - 1.09 EQUIVOCAL; REPEAT TESTING SUGGESTED > OR = 1.10 POSITIVE ; INDICATES PRESENCE OF DETECTABLE IgG ANTIBODY TO RUBELLA VIRUS Performed By: #### 3 1397, 96427, 67659, 92212, 16915 #### [facility] [address] RUBEOLA MEASLES IGGon 2021 RUBEO IGG 6.[address] [facility] Comment on above: Result Comment: NORM AL RANGES: < OR = 0.9O NEGATIVE ; NO DETECTABLE IgG ANTIBODY TO RUBEOLA 0.91 - 1.09 EQUIVOCAL; REPEAT TESTING SUGGESTED > OR = 1.10 POSITIVE ; INDICATES PRESENCE OF DETECTABLE IgG ANTIBODY TO RUBEOLA Performed By: #### 3 1397, 79088, 01760, 26288, 67521 #### [facility] [address] SINGLE ANTIGEN CLASS 1on METHOD Class I Single Antigen Normal Th e [facility] Comment on above: Order Comment: Some of [...] to frequency. Performed By: #### 3 1397, 41988, 48994, 76988, 89339 #### [facility] [address] SINGLE ANTIGEN CLASS 2on COMMENTS Normal The [facility] Comment on above: Order Comment: Some of [...] watch list. Performed By: #### 3 1397, 94689, 31109, 14399, 80089 #### [facility] [address] Result Comment: Clas s I Antigen Microbeads Potential specificites added to the watch list. CPRA 0 Normal The [facility] Comment on above: Order Comment: Some of [...] to frequency. Performed By: #### 3 1397, 83561, 81989, 66068, 65536 #### [facility] [address] [place] [address], [facility] METHOD Class II Single Antigen Normal T he [facility] Comment on above: Order Comment: Some of [...] to frequency. Performed By: #### 3 1397, 16460, 82665, 60362, 40603 #### [facility] [address] [facility] [place] [address], [facility] T PROT UR Yesy 02-12-2022 U TOTAL PROTEIN 44.0 mg/dL Normal The [facility] Comment on above: Result Comment: Ther e are no established reference values for random urine specimens Performed By: #### 3 1397, 92332, 16145, 88951, 18788 #### [facility] [address] [facility]. [address] TB QUANTIFERON PLUSon 2021 MITOGEN MINUS NIL >10.00 Normal The [facility] Comment on above: Performed By: #### 3 1592 #### [facility] [address] [facility]. [address] NIL 0.03 IU/mL Normal The [facility] Comment on above: Performed By: #### 3 1592 #### [facility] [address] [facility]. [address] TB QUANTIFERON Negative Normal NEGATIVE The [facility] Comment on above: Result Comment: Jadiel tiferon TB Gold Interpretation (IU/mL): NEGATIVE: M. tuberculosis infection not likely. Nil: <=8.0 TB1 Antigen minus Nil ([id number]): <0.35 OR >=0.35; and <25% of Nil value. TB2 Antigen minus Nil ([id number]): <0.35 OR >=0.35; and <25% of Nil [...] (https://www.cdc.gov/tb/publications/guidlines/default.htm Performed By: #### 3 1592 #### [facility] [address] [facility] [place] [address], [facility] TB1 AG 0.05 IU/mL Normal The [facility] Comment on above: Performed By: #### 3 1592 #### [facility] [address] [facility] [place] [address], [place] TB1 AG MINUS NIL 0.02 IU/mL Normal The [facility] Comment on above: Performed By: #### 3 1592 #### [facility] [address] [facility] [place] [address], [facility] TB2 AG 0.05 IU/mL Normal The [facility] Comment on above: Performed By: #### 3 1592 #### [facility] [address] [facility] [place] [address], [facility] TB2 AG MINUS NIL 0.02 IU/mL Normal The [facility] Comment on above: Performed By: #### 3 1592 #### [facility] [address] [facility] [place] [address], [facility] UA,MICROSCOPIC REQUIREDon Appearance (U) SL CLOUDY Abnormal CLEAR The [facility] Comment on above: Performed By: #### 3 1397, 15047, 81285, 50111, 93098 #### [facility] [address] [facility] [place] [address], [facility] Bilirubin Ql (U) Negative Normal NEGATIVE The [facility] Comment on above: Performed By: #### 3 1397, 82722, 18798, 80868, 16507 #### [facility] [address] [facility] [place] [address], [facility] Color (U) STRAW Abnormal YELLOW The [facility] Comment on above: Performed By: #### 3 1397, 19045, 57785, 66599, 67306 #### [facility] [address] [place] [address], [place] EPIS MANY Abnormal FEW,OCC,NONE SEEN The [facility] Comment on above: Performed By: #### 3 1397, 88560, 24801, 93221, 98825 #### [facility] [address] [place] [address], [facility] Glucose Ql (U) 50 mg/dL Abnormal NEGATIVE The [facility] Comment on above: Performed By: #### 3 1397, 98961, 22047, 41192, 60307 #### [facility] [address] [place] [address], [facility] Hemoglobin Ql (U) Negative Normal NEGATIVE The [facility] Comment on above: Performed By: #### 3 1397, 03061, 23400, 58850, 26630 #### [facility] [address] [place] [address], [facility] KETONE Negative Normal NEGATIVE The [facility] Comment on above: Performed By: #### 3 1397, 64664, 68244, 57500, 19597 #### [facility] [address] [facility] [place] [address], [facility] LEUK MARYAN MODERATE Abnormal NEGATIVE The [facility] Comment on above: Performed By: #### 3 1397, 84558, 31694, 55347, 81143 #### [facility] [address] [facility] [place] [address], [facility] Nitrite Ql (U) Negative Normal NEGATIVE The [facility] Comment on above: Performed By: #### 3 1397, 74665, 96161, 18158, 60446 #### [facility] [address] [place] [id number], [facility] pH (U) 7.0 [pH] Normal 5.0-8.0 The [facility] Comment on above: Performed By: #### 3 1397, 00319, 64220, 13484, 08800 #### [facility] [address] [place] [id number], [facility] Protein Ql (U) 30 mg/dL Abnormal NEGATIVE The [facility] Comment on above: Performed By: #### 3 1397, 26126, 85093, 40884, 78304 #### [facility] [address] [facility] [place] [address], [facility] RBC NONE SEEN Normal NONE SEEN The [facility] Comment on above: Performed By: #### 3 1397, 55528, 59265, 59667, 82968 #### [facility] [address] [place] [address], [facility] SPEC GRAV 1.009 Low 1.015-1.020 The [facility] Comment on above: Performed By: #### 3 1397, 78805, 55944, 86345, 54551 #### [facility] [address] [place] [address], [facility] WBC UA 11-20 Abnormal NONE SEEN The [facility] Comment on above: Performed By: #### 3 1397, 81294, 32278, 49455, 54109 #### [facility] [address] [facility]. [address] VARICELLA ZOSTER IGGon 02-12 VARICELLA IGG 3.29 Normal The [facility] Comment on above: Result Comment: NORM AL RANGES: < OR = 0.9O NEGATIVE ; NO DETECTABLE IgG ANTIBODY TO VARICELLA-ZOSTER VIRUS 0.91 - 1.09 EQUIVOCAL; REPEAT TESTING SUGGESTED > OR = 1.10 POSITIVE ; INDICATES PRESENCE OF DETECTABLE IgG ANTIBODY TO VARICELLA-ZOSTER VIRUS Performed By: #### 3 1397, 41362, 30119, 29891, 60879 #### [facility] [address] [facility] [address], [facility] PTH INTACTon 12-04-2021 PTH, Intact 165 pg/mL Critically high 15-[address] [facility] Comment on above: Performed By: #### M G, URIC, RENAL #### [facility] [address] [place] [address] Dr. Hari Palmer FERRITINon 12-03-2021 Ferritin [Mass/Vol] 256.0 ng/mL Critically high 6.2-137.0 [facility] Comment on above: Performed By: #### M G, URIC, RENAL #### [facility] [address] [place] [address] Dr. Hari Palmer HEMOGRAM AND PLATELon 2021 Hematocrit (Bld) [Volume fraction] 33.7 % Critically low 36.0-48.0 [facility] Comment on above: Performed By: #### M G, URIC, RENAL #### [facility] [address] [place] [address] Dr. Hari Palmer Hemoglobin (Bld) [Mass/Vol] 10.9 g/dL Critically low 12.0-16.[address] [facility] Comment on above: Performed By: #### M G, URIC, RENAL #### [facility] [address] [place] [address] Dr. Hari Palmer MCH (RBC) [Entitic mass] 31.4 pg Normal 26.7-34.[address] [facility] Comment on above: Performed By: #### M G, URIC, RENAL #### [facility] [address] [place] [address] Dr. Hari Palmer MCHC (RBC) [Mass/Vol] 32.3 g/dL Normal 29.9-35.[address] [facility] Comment on above: Performed By: #### M G, URIC, RENAL #### [facility] [address] [place] [address] Dr. Hari Palmer MCV (RBC) [Entitic vol] 97.1 fL Normal 81.0-99.[address] [facility] Comment on above: Performed By: #### M G, URIC, RENAL #### [facility] [address] [place] [address] Dr. Hari Palmer PLT 314 103/ul Normal 150-[address] [facility] Comment on above: Performed By: #### M G, URIC, RENAL #### [facility] [address] [place] [address] Dr. Hari Palmer RBC 3.47 106/ul Critically low 4.20-5.[address] [facility] Comment on above: Performed By: #### M G, URIC, RENAL #### [facility] [address] [place] [address] Dr. Hari Palmer WBC 9.4 103/ul Normal 4.0-11.[address] [facility] Comment on above: Performed By: #### M G, URIC, RENAL #### [facility] [address] [place] [address] Dr. Hari Palmer IRON AND TIBCon 12-03-2021 % SATURATION 19.0 % Normal [facility] Comment on above: Performed By: #### M G, URIC, RENAL #### [facility] [address] [place] [address] Dr. Hari Palmer Iron [Mass/Vol] 52.0 ug/dL Normal 37.0-170.[address] [facility] Comment on above: Performed By: #### M G, URIC, RENAL #### [facility] [address] [place] [address] Dr. Hari Palmer TIBC DIRECT 273.0 ug/dL Normal 261.0-497.0 [facility] Comment on above: Performed By: #### M G, URIC, RENAL #### [facility] [address] [place] [address] Dr. Hari Palmer MAGNESIUMon 12-03-2021 Magnesium [Mass/Vol] 2.1 mg/dL Normal 1.6-2.[address] [facility] Comment on above: Performed By: #### M G, URIC, RENAL #### [facility] [address] [place] [address] Dr. Hari Palmer RENAL FUNCTION PANELon 12-03 Albumin [Mass/Vol] 3.6 g/dL Normal 3.5-5.[address] [facility] Comment on above: Performed By: #### M G, URIC, RENAL #### [facility] [address] [place] [address] Dr. Hari Palmer Calcium [Mass/Vol] 8.4 mg/dL Normal 8.4-10.[address] [facility] Comment on above: Performed By: #### M G, URIC, RENAL #### [facility] [address] [place] [address] Dr. Hari Palmer Chloride [Moles/Vol] 101 mmol/L Normal 98-[address] [facility] Comment on above: Performed By: #### M G, URIC, RENAL #### [facility] [address] [address] [address] Hari Palmer CO2 [Moles/Vol] 24.3 mmol/L Normal 22.0-30.0 [facility] Comment on above: Performed By: #### M G, URIC, RENAL #### [facility] [address] [address] [address] Hari Palmer Creatinine [Mass/Vol] 3.32 mg/dL Critically high 0.52-1.04 [facility] Comment on above: Performed By: #### M G, URIC, RENAL #### [facility] [address] [address] [address] Hari Palmer EGFR-AF GRENADIAN 18 mL/min/1.73m2 Critically low >=60 [facility] Comment on above: Performed By: #### M G, URIC, RENAL #### [facility] [address] [place] [address] Dr. Hari Palmer EGFR-NON AF GRENADIAN 15 mL/min/1.73m2 Critically low >=60 [facility] Comment on above: Performed By: #### M G, URIC, RENAL #### [facility] [address] [address] [address] Hari Palmer Glucose [Mass/Vol] 119 mg/dL Critically high 74-106 T [facility] Comment on above: Performed By: #### M G, URIC, RENAL #### [facility] [address] [address] [address] Hari Palmer Phosphate [Mass/Vol] 4.7 mg/dL Critically high 2.5-4.5 [facility] Comment on above: Performed By: #### M G, URIC, RENAL #### [facility] [address] [address] [address] Hari Palmer Potassium [Moles/Vol] 4.0 mmol/L Normal 3.4-5.0 [facility] Comment on above: Performed By: #### M G, URIC, RENAL #### [facility] [address] [address] [address] Hari Palmer Sodium [Moles/Vol] 135 mmol/L Critically low 137-[address] [facility] Comment on above: Performed By: #### M G, URIC, RENAL #### [facility] [address] [place] [address] Dr. Hari Palmer Urea nitrogen [Mass/Vol] 42.0 mg/dL Critically high 7.0-17.0 [facility] Comment on above: Performed By: #### M G, URIC, RENAL #### [facility] [address] [place] [address] Dr. Hari Palmer UA RANDOM W/MICROSCOPICon BACTERIA TRACE Abnormal NONE SEEN [facility] Comment on above: Performed By: #### U AMIC #### [facility] [address] [place] [address] Dr. Hari Palmer Bilirubin Ql (U) Negative Normal NEGATIVE [facility] Comment on above: Performed By: #### U AMIC #### [facility] [address] [place] [address] Dr. Hari Palmer CAST NONE SEEN Normal NONE SEEN [facility] Comment on above: Performed By: #### U AMIC #### [facility] [address] [place] [address] Dr. Hari Palmer Clarity (U) CLEAR Normal CLEAR [facility] Comment on above: Performed By: #### U AMIC #### [facility] [address] [place] [address] Dr. Hari Palmer Color (U) LT. YELLOW Normal YELLOW [facility] Comment on above: Performed By: #### U AMIC #### [facility] [address] [place] [address] Dr. Hari Palmer Crystals LM Nom (Urine sed) NONE SEEN Normal NONE SEEN [facility] Comment on above: Performed By: #### U AMIC #### [facility] [address] [place] [address] Dr. Hari Palmer Epithelial cells LM Ql (Urine sed) FEW Abnormal NONE SEEN /RARE [facility] Comment on above: Performed By: #### U AMIC #### [facility] [address] [place] [address] Dr. Hari Palmer Glucose Ql (U) 100 mg/dl Abnormal NEGATIVE [facility] Comment on above: Performed By: #### U AMIC #### [facility] [address] [place] [address] Dr. Hari Palmer Hemoglobin Ql (U) TRACE-INTACT Abnormal NEGATIVE [facility] Comment on above: Performed By: #### U AMIC #### [facility] [address] [place] [address] Dr. Hari Palmer Ketones Ql (U) Negative Normal NEGATIVE [facility] Comment on above: Performed By: #### U AMIC #### [facility] [address] [place] [address] Dr. Hari Palmer LEUKOCYTES SMALL Abnormal NEGATIVE [facility] Comment on above: Performed By: #### U AMIC #### [facility] [address] [place] [address] Dr. Hari Palmer MUCOUS NONE SEEN Normal NONE SEEN [facility] Comment on above: Performed By: #### U AMIC #### [facility] [address] [place] [address] Dr. Hari Palmer Nitrite Ql (U) Negative Normal NEGATIVE [facility] Comment on above: Performed By: #### U AMIC #### [facility] [address] [place] [address] Dr. Hair Palmer pH (U) 6.0 [pH] Normal 5-9 [facility] Comment on above: Performed By: #### U AMIC #### [facility] [address] [place] [address] Dr. Hari Palmer RBC 0-2 Normal 0-2 [facility] Comment on above: Performed By: #### U AMIC #### [facility] [address] [place] [address] Dr. Hari Palmer SPEC GRAVITY 1.010 Normal 1.005-<=1.02 5 [facility] Comment on above: Performed By: #### U AMIC #### [facility] [address] [place] [address] Dr. Hari Palmer UA PROTEIN Negative Normal NEGATIVE/ TRACE [facility] Comment on above: Performed By: #### U AMIC #### [facility] [address] [place] [address] Dr. Hari Palmer Urobilinogen Qn (U) 0.2 {Janice'U}/dL Normal 0.2 - 1. 0 [facility] Comment on above: Performed By: #### U AMIC #### [facility] [address] [place] [address] Dr. Hari Palmer WBC 5-10 Abnormal NONE SEEN [facility] Comment on above: Performed By: #### U AMIC #### [facility] [address] [place] [address] Dr. Hari Palmer URIC ACID SERUMon 12-03-2021 Urate [Mass/Vol] 4.6 mg/dL Normal 2.5-6.2 [facility] Comment on above: Performed By: #### M G, URIC, RENAL #### [facility] [address] [place] [address] Dr. Hari Palmer URINE T PROTEIN CREAT RATIOo n 12-03-2021 Protein (U) [Mass/Vol] 31.7 mg/dL Critically high <=12.0 [facility] Comment on above: Performed By: #### M G, URIC, RENAL #### [facility] [address] [place] [address] Dr. Hari Palmer UR PROT CREAT RAT 0.54 Normal [facility] Comment on above: Performed By: #### M G, URIC, RENAL #### [facility] [address] [place] [address] Dr. Hari Palmer URINE CREAT 59.03 mg/dL Normal 20.00-300.00 [facility] Comment on above: Performed By: #### M G, URIC, RENAL #### [facility] [address] [place] [address] Dr. Hari Palmer VITAMIN D 25 OHon 12-03-2021 VIT D 25-OH 38.1 ng/mL Normal [facility] Comment on above: Performed By: #### M G, URIC, RENAL #### [facility] [address] [place] [address] Dr. Hari Palmer VIT D RANGES SEE BELOW Normal [facility] Comment on above: Result Comment: <20 ng/mL Vit D deficient 20 - <30 ng/mL Vit D insufficient 30 - 100 ng/mL Vit D sufficient >100 ng/mL Potential Toxicity Performed By: #### M G, URIC, RENAL #### [facility] [address] [place] [address] Dr. Hari Palmer PTH INTACTon 09-03-2021 PTH, Intact 177 pg/mL Critically high 15-65 [facility] Comment on above: Performed By: #### P THINT #### [facility] [address] [place] [address] Dr. Hari Palmer CBC AUTO DIFFon 09-01-2021 BASO # 0.1 103/ul Normal 0.0-0.1 [facility] Comment on above: Performed By: #### M G, URIC, RENAL #### [facility] [address] [place] [address] Dr. Hari Palmer Basophils/100 WBC (Bld) 0.6 % Normal 0.2-2.0 [facility] Comment on above: Performed By: #### M G, URIC, RENAL #### [facility] [address] [place] [address] Dr. Hari Palmer EO # 0.3 103/ul Normal 0.0-0.7 [facility] Comment on above: Performed By: #### M G, URIC, RENAL #### [facility] [address] [place] [address] Dr. Hari Palmer Eosinophils/100 WBC (Bld) 3.5 % Normal 0.9-7.0 [facility] Comment on above: Performed By: #### M G, URIC, RENAL #### [facility] [address] [place] [address] Dr. Hari Palmer Erythrocyte distribution width (RBC) [Ratio] 13.8 % Normal 11.0-15.0 [facility] Comment on above: Performed By: #### M G, URIC, RENAL #### [facility] [address] [place] [address] Dr. Hari Palmer Hematocrit (Bld) [Volume fraction] 32.8 % Critically low 36.0-48.0 [facility] Comment on above: Performed By: #### M G, URIC, RENAL #### [facility] [address] [place] [address] Dr. Hari Palmer Hemoglobin (Bld) [Mass/Vol] 10.6 g/dL Critically low 12.0-16.[address] [facility] Comment on above: Performed By: #### M G, URIC, RENAL #### [facility] [address] [place] [address] Dr. Hari Palmer IG # 0.14 10e3/ul Critically high 0.00-0.[address] [facility] Comment on above: Performed By: #### M Edy URIC, RENAL #### [facility] [address] [place] [address] Dr. Hari Palmer IG % 1.5 % Critically high 0.0-0.5 [facility] Comment on above: Performed By: #### M Edy, URIC, RENAL #### [facility] [address] [place] [address] Dr. Hari Palmer LYMPH # 1.8 103/ul Normal 1.2-3.[address] [facility] Comment on above: Performed By: #### M Edy URIC, RENAL #### [facility] [address] [place] [address] Dr. Hari Palmer Lymphocytes/100 WBC (Bld) 19.3 % Critically low 20.5-60.[address] [facility] Comment on above: Performed By: #### M G, URIC, RENAL #### [facility] [address] [place] [address] Dr. Hari Palmer MANUAL DIFF REQ NO Normal [facility] Comment on above: Performed By: #### M G, URIC, RENAL #### [facility] [address] [place] [address] Dr. Hari Palmer MCH (RBC) [Entitic mass] 31.4 pg Normal 26.7-34.[address] [facility] Comment on above: Performed By: #### M G, URIC, RENAL #### [facility] [address] [address] [address] Hari Palmer MCHC (RBC) [Mass/Vol] 32.3 g/dL Normal 29.9-35.[address] [facility] Comment on above: Performed By: #### M G, URIC, RENAL #### [facility] [address] [place] [address] Dr. Hari Palmer MCV (RBC) [Entitic vol] 97.0 fL Normal 81.0-99.[address] [facility] Comment on above: Performed By: #### M G, URIC, RENAL #### [facility] [address] [place] [address] Dr. Hari Palmer MONO # 0.4 103/ul Normal 0.3-0.8 [facility] Comment on above: Performed By: #### M G, URIC, RENAL #### [facility] [address] [place] [address] Dr. Hari Palmer Monocytes/100 WBC (Bld) 4.2 % Normal 1.7-12.0 [facility] Comment on above: Performed By: #### M G, URIC, RENAL #### [facility] [address] [place] [address] Dr. Hari Palmer NEUT # 6.5 103/ul Normal 1.4-6.5 [facility] Comment on above: Performed By: #### M G, URIC, RENAL #### [facility] [address] [address] [address] Hari Palmer Neutrophils/100 WBC (Bld) 70.9 % Normal 43.0-75.[address] [facility] Comment on above: Performed By: #### M G, URIC, RENAL #### [facility] [address] [address] [address] Hari Palmer Platelet mean volume (Bld) [Entitic vol] 9.0 fL Critically low 9.5-13.5 [facility] Comment on above: Performed By: #### M G, URIC, RENAL #### [facility] [address] [place] [address] Dr. Hari Palmer PLT 289 103/ul Normal 150-[address] [facility] Comment on above: Performed By: #### M G, URIC, RENAL #### [facility] [address] [address] [address] Hari Palmer RBC 3.38 106/ul Critically low 4.20-5.[address] [facility] Comment on above: Performed By: #### M G, URIC, RENAL #### [facility] [address] [address] [address] Hari Palmer WBC 9.1 103/ul Normal 4.0-11.0 [facility] Comment on above: Performed By: #### M G, URIC, RENAL #### [facility] [address] [place] [address] Dr. Hari Palmer FERRITINon 09-01-2021 Ferritin [Mass/Vol] 204.0 ng/mL Critically high 6.2-137.0 [facility] Comment on above: Performed By: #### M G, URIC, RENAL #### [facility] [address] [place] [address] Dr. Hari Palmer IRON AND TIBCon 09-01-2021 % SATURATION 28.4 % Normal [facility] Comment on above: Performed By: #### M G, URIC, RENAL #### [facility] [address] [place] [address] Dr. Hari Palmer Iron [Mass/Vol] 80.0 ug/dL Normal 37.0-170.[address] [facility] Comment on above: Performed By: #### M G, URIC, RENAL #### [facility] [address] [place] [address] Dr. Hari Palmer TIBC DIRECT 282.0 ug/dL Normal 261.0-497.[address] [facility] Comment on above: Performed By: #### M G, URIC, RENAL #### [facility] [address] [place] [address] Dr. Hari Palmer MAGNESIUMon 09-01-2021 Magnesium [Mass/Vol] 2.2 mg/dL Normal 1.6-2.[address] [facility] Comment on above: Performed By: #### U AMIC #### [facility] [address] [address] [address] Hari Palmer RENAL FUNCTION PANELon 09-01 Albumin [Mass/Vol] 3.5 g/dL Normal 3.5-5.0 [facility] Comment on above: Performed By: #### M G, URIC, RENAL #### [facility] [address] [place] [address] Dr. Hari Palmer Calcium [Mass/Vol] 8.7 mg/dL Normal 8.4-10.[address] [facility] Comment on above: Performed By: #### M G, URIC, RENAL #### [facility] [address] [place] [address] Dr. Hari Palmer Chloride [Moles/Vol] 105 mmol/L Normal 98-107 [facility] Comment on above: Performed By: #### M G, URIC, RENAL #### [facility] [address] [place] [address] Dr. Hari Palmer CO2 [Moles/Vol] 21.1 mmol/L Critically low 22.0-30.0 [facility] Comment on above: Performed By: #### M G, URIC, RENAL #### [facility] [address] [address] [address] Hari Palmer Creatinine [Mass/Vol] 3.63 mg/dL Critically high 0.52-1.04 [facility] Comment on above: Performed By: #### M G, URIC, RENAL #### [facility] [address] [place] [address] Dr. Hari Palmer EGFR-AF GRENADIAN 16 mL/min/1.73m2 Critically low >=[address] [facility] Comment on above: Performed By: #### M G, URIC, RENAL #### [facility] [address] [place] [address] Dr. Hari Palmer EGFR-NON AF GRENADIAN 14 mL/min/1.73m2 Critically low >=60 [facility] Comment on above: Performed By: #### M G, URIC, RENAL #### [facility] [address] [place] [address] Dr. Hari Palmer Glucose [Mass/Vol] 115 mg/dL Critically high 74-106 T [facility] Comment on above: Performed By: #### M G, URIC, RENAL #### [facility] [address] [place] [address] Dr. Hari Palmer Phosphate [Mass/Vol] 4.6 mg/dL Critically high 2.5-4.5 [facility] Comment on above: Performed By: #### M G, URIC, RENAL #### [facility] [address] [place] [address] Dr. Hari Palmer Potassium [Moles/Vol] 4.2 mmol/L Normal 3.4-5.[address] [facility] Comment on above: Performed By: #### M G, URIC, RENAL #### [facility] [address] [place] [address] Dr. Hari Palmer Sodium [Moles/Vol] 138 mmol/L Normal 137-[address] [facility] Comment on above: Performed By: #### M G, URIC, RENAL #### [facility] [address] [place] [address] Dr. Hari Palmer Urea nitrogen [Mass/Vol] 50.0 mg/dL Critically high 7.0-17.0 [facility] Comment on above: Performed By: #### M G, URIC, RENAL #### [facility] [address] [place] [address] Dr. Hari Palmer UA RANDOM W/MICROSCOPICon BACTERIA SMALL Abnormal NONE SEEN [facility] Comment on above: Performed By: #### U AMIC #### [facility] [address] [place] [address] Dr. Hari Palmer Bilirubin Ql (U) Negative Normal NEGATIVE [facility] Comment on above: Performed By: #### U AMIC #### [facility] [address] [place] [address] Dr. Hari Palmer CAST NONE SEEN Normal NONE SEEN [facility] Comment on above: Performed By: #### U AMIC #### [facility] [address] [place] [address] Dr. Hari Palmer Clarity (U) CLEAR Normal CLEAR [facility] Comment on above: Performed By: #### U AMIC #### [facility] [address] [address] Dr. Hari Palmer Color (U) LT. YELLOW Normal YELLOW [facility] Comment on above: Performed By: #### U AMIC #### [facility] [address] [address] [address] Hari Palmer Crystals LM Nom (Urine sed) NONE SEEN Normal NONE SEEN [facility] Comment on above: Performed By: #### U AMIC #### [facility] [address] [address] [address] Hari Palmer Epithelial cells LM Ql (Urine sed) MODERATE Abnormal NONE SEEN /RARE [facility] Comment on above: Performed By: #### U AMIC #### [facility] [address] [place] [address] Dr. Hari Pamler Glucose Ql (U) Negative Normal NEGATIVE [facility] Comment on above: Performed By: #### U AMIC #### [facility] [address] [address] [address] Hari Palmer Hemoglobin Ql (U) TRACE-INTACT Abnormal NEGATIVE [facility] Comment on above: Performed By: #### U AMIC #### [facility] [address] [address] [address] Hari Palmer Ketones Ql (U) Negative Normal NEGATIVE [facility] Comment on above: Performed By: #### U AMIC #### [facility] [address] [address] [address] Hari Palmer LEUKOCYTES Negative Normal NEGATIVE [facility] Comment on above: Performed By: #### U AMIC #### [facility] [address] [address] [address] Hari Palmer MUCOUS NONE SEEN Normal NONE SEEN [facility] Comment on above: Performed By: #### U AMIC #### [facility] [address] [place] [address] Dr. Hari Palmer Nitrite Ql (U) Negative Normal NEGATIVE [facility] Comment on above: Performed By: #### U AMIC #### [facility] [address] [place] [address] Dr. Hari Palmer pH (U) 6.0 [pH] Normal 5-[address] [facility] Comment on above: Performed By: #### U AMIC #### [facility] [address] [place] [address] Dr. Hari Palmer RBC 2-5 Abnormal 0-[address] [facility] Comment on above: Performed By: #### U AMIC #### [facility] [address] [place] [address] Dr. Hari Palmer SPEC GRAVITY 1.010 Normal 1.005-<=1.02 5 [facility] Comment on above: Performed By: #### U AMIC #### [facility] [address] [place] [address] Dr. Hari Palmer UA PROTEIN Negative Normal NEGATIVE/ TRACE [facility] Comment on above: Performed By: #### U AMIC #### [facility] [address] [place] [address] Dr. Hari Palmer Urobilinogen Qn (U) 0.2 {Janice'U}/dL Normal 0.2 - 1. [address] [facility] Comment on above: Performed By: #### U AMIC #### [facility] [address] [place] [address] Dr. Hari Palmer WBC 2-5 Abnormal NONE SEEN [facility] Comment on above: Performed By: #### U AMIC #### [facility] [address] [place] [address] Dr. Hari Palmer URIC ACID SERUMon 09-01-2021 Urate [Mass/Vol] 4.9 mg/dL Normal 2.5-6.[address] [facility] Comment on above: Performed By: #### U AMIC #### [facility] [address] [place] [address] Dr. Hari Palmer URINE T PROTEIN CREAT RATIOo n 09-01-2021 Protein (U) [Mass/Vol] 22.2 mg/dL Critically high <=12.0 [facility] Comment on above: Performed By: #### M G, URIC, RENAL #### [facility] [address] [address] [address] Hari Palmer UR PROT CREAT RAT 0.47 Normal [facility] Comment on above: Performed By: #### M G, URIC, RENAL #### [facility] [address] [address] [address] Hari Palmer URINE CREAT 46.89 mg/dL Normal 20.00-300.00 [facility] Comment on above: Performed By: #### M G, URIC, RENAL #### [facility] [address] [address] [address] Hari Palmer VITAMIN D 25 OHon 09-01-2021 VIT D 25-OH 40.5 ng/mL Normal [facility] Comment on above: Performed By: #### M Edy, URIC, RENAL #### [facility] [address] [place] [address] Dr. Hari Palmer VIT D RANGES SEE BELOW Normal [facility] Comment on above: Result Comment: <20 ng/mL Vit D deficient 20 - <30 ng/mL Vit D insufficient 30 - 100 ng/mL Vit D sufficient >100 ng/mL Potential Toxicity Performed By: #### M G, URIC, RENAL #### [facility] [address] [address] [address] Hari Palmer CNOVon 03-30-2021 CNOV Office Visit (NEPHMN ) ----- MANDEEP PURI ([id number]) 1975 F Date Time Provider Department 03/30/21 9:20 AM PERRI BARRETT NEPHCHET During your visit today, we recorded the following information about you: Temperature Pulse Blood pressure Weight 98.2 degrees 75/minute 122/77 93 kg Height 1.549 m Perri Barrett MD 03/30/2021 10:25 AM Signed Mrs. 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 (more content not included)... Normal [facility] Urinalysison 03-30-2021 Bilirubin, Urine Negative Normal Negative [facility] Comment on above: Performed By: #### U A #### [facility] [address] [address] Clarity (U) Clear Normal Clear [facility] Comment on above: Performed By: #### U A #### [address] [place], [place] [address] Color (U) Colorless Critically abnormal Yellow [facility] Comment on above: Performed By: #### U A #### [address] [place], [place] [id number] Comments SEE COMMENT Normal [facility] Comment on above: Result Comment: Micr oscopic not warranted Performed By: #### U A #### [facility] [address] [id number] Glucose Ql (U) Trace Critically abnormal Negative [facility] Comment on above: Performed By: #### U A #### [facility] [address] [address] Hemoglobin/Blood,Ur Negative Normal Negative [facility] Comment on above: Performed By: #### U A #### [facility] [address] [place], [place] [address] Ketones Ql (U) Negative Normal Negative [facility] Comment on above: Performed By: #### U A #### [facility] [address] [address] Leukest Negative Normal Negative [facility] Comment on above: Performed By: #### U A #### [address] [place] [address] Nitrite Ql (U) Negative Normal Negative [facility] Comment on above: Performed By: #### U A #### [address] [address] pH (U) 6.5 [pH] Normal 5.0-8.0 [facility] Comment on above: Performed By: #### U A #### [address] [place] [address] Protein, Urine Negative Normal Negative [facility] Comment on above: Performed By: #### U A #### [address] [address] Specific [place], Ur 1.008 Normal 1.005-1.030 [facility] Comment on above: Performed By: #### U A #### [facility] Astley Clarke [address] [id number] Urine Codi Comment SEE COMMENT Normal [facility] Comment on above: Result Comment: N/A Performed By: #### U A #### [facility] Astley Clarke [facility] [address] Urobilinogen (U) [Mass/Vol] Negative Normal Negative [facility] Comment on above: Performed By: #### U A #### [facility] [address] [place], [place] [address] Coding Summary.on 04-21-2020 Coding Summary. CODING DATE: 020 [facility] STATUS: Home (Routine DC) PAYOR: Medical [place] ADMIT DX: REASON FOR VISIT DX: Z20.828 [...] CphT Date Saved: 04/21/2020 05:17 pm Normal [facility] Physician Orderon 04-21-2020 Physician Order [id number] Normal [facility] Marci 04-12-2020 ALT [Catalytic activity/Vol] 14 U/L Normal 7 - 45 [facility] Comment on above: Result Comment: Kelsea ents treated with Sulfasalazine may generate falsely decreased results for ALT. Performed By: #### A LT #### [facility] [address] [place] [address] Ronald 04-12-2020 AST [Catalytic activity/Vol] 16 U/L Normal 9 - 39 [facility] Comment on above: Performed By: #### A ST #### [facility] [address] [place] [address] CREATININEon 04-12-2020 Creatinine [Mass/Vol] 2.83 mg/dL High 0.50 - 1.05 [facility] Comment on above: Performed By: #### C REAT #### [facility] [address] [place] [address] Creatinine [Mass/Vol] 18 mL/min/1.73m2 Abnormal >60 [facility] Comment on above: Performed By: #### C REAT #### [facility] [address] [place] [address] Creatinine [Mass/Vol] 22 mL/min/1.73m2 Abnormal >60 [facility] Comment on above: Result Comment: CALC ULATIONS OF ESTIMATED GFR ARE PERFORMED USING THE MDRD STUDY EQUATION FOR THE IDMS-TRACEABLE CREATININE METHODS. CLIN CHEM 2007;53:766-72 Performed By: #### C REAT #### [facility] [address] [place] [address] URIC ACIDon 04-12-2020 Urate [Mass/Vol] 5.2 mg/dL Normal 2.3 - 6.7 [facility] Comment on above: Result Comment: Beti puncture immediately after or during the administration of Metamizole may lead to falsely low results. Testing should be performed immediately prior to Metamizole dosing. Performed By: #### U DICK #### [facility] [address] [place] [address] URIC ACIDon 02-11-2020 Urate [Mass/Vol] 8.2 mg/dL High 2.3 - 6.7 [facility] Comment on above: Result Comment: Beti puncture immediately after or during the administration of Metamizole may lead to falsely low results. Testing should be performed immediately prior to Metamizole dosing. Performed By: #### U DICK #### [facility] [address] [place] [address] Cult,Urineon 08-04-2019 Cult,Urine Specimen Description .CLEAN CATCH URINE Special Requests NOT REPORTED Culture ESCHERICHIA COLI >[id number] CFU/ML Report Status FINAL 08/04/2019 SUSCEPTIBILITY Organism [...] Trimethoprim/Sulfa <=20 SUSCEPTIBLE Piperacillin/Tazobactam <=4 SUSCEPTIBLE Normal [facility] Comment on above: Performed By: #### D CITLALY, LIP, CMPX, TROPI, BNP, CDP, PT #### [facility] [address] [place] [address] Porcelain Enamel Sprayer: Sami Dominguez MD Brain Natri. Peptideon 08-02 Natriuretic peptide B (Bld) [Mass/Vol] 152 pg/mL Normal <300 [facility] Comment on above: Result Comment: Pro- BNP results cannot be compared to BNP results. Performed By: #### D CITLALY, LIP, CMPX, TROPI, BNP, CDP, PT #### [facility] [address] [place] [address] Porcelain Enamel Sprayer: Sami Dominguez MD Natriuretic peptide B (Bld) [Mass/Vol] Pro-BNP Reference Range: Normal [facility] Comment on above: Result Comment: Rule Out: <300 Parra Zone: Age <50 300-450 Age 50-75 300-900 Age >75 300-1800 Usually represents mild to moderate HF but other cardiopulmonary causes cannot be ruled out. Rule In: Age <50 >450 Age 50-75 >900 Age >75 >1800 Performed By: #### D CITLALY, LIP, CMPX, TROPI, BNP, CDP, PT #### [facility] [address] [place] [address] Porcelain Enamel Sprayer: Sami Dominguez MD Brain Natriuretic Peptideon 08-02-2019 Natriuretic peptide B (Bld) [Mass/Vol] 152 pg/mL <300 [place] Comment on above: Pro-BNP results eric ot be compared to BNP results. Natriuretic peptide B (Bld) [Mass/Vol] Pro-BNP Reference Range: [facility] [place] Comment on above: Rule Out: <300 Parra Zone: Age <50 300-450 Age 50-75 300-900 Age >75 300-1800 Usually represents mild to moderate HF but other cardiopulmonary causes cannot be ruled out. Rule In: Age <50 >450 Age 50-75 >900 Age >75 >1800 CBC Auto Differentialon 07-07 Basophils (Bld) [#/Vol] 0.00 10*uL [place] Basophils/100 WBC (Bld) 0 % 0 - 2 % [place] Differential Type NOT REPORTED [place] Eosinophils (Bld) [#/Vol] 0.08 10*3/uL [place] Eosinophils/100 WBC (Bld) 1 % 1 - 4 % [place] Erythrocyte distribution width (RBC) [Ratio] 13.2 % 11.8 - 14.4 % [place] Hematocrit (Bld) [Volume fraction] 33.7 % Low 36.3 - 47.1 % [place] Hemoglobin (Bld) [Mass/Vol] 10.7 g/dL Low 11.9 - 15.1 g/dL [place] Immature granulocytes (Bld) [#/Vol] 0 % 0 [place] Immature granulocytes (Bld) [#/Vol] 0.00 10*3/uL [place] Interpretation and review of laboratory results Abnormal [place] Lymphocytes (Bld) [#/Vol] 0.90 10*3/uL Low [place] Lymphocytes/100 WBC (Bld) 12 % Low 24 - 43 % [place] MCH (RBC) [Entitic mass] 30.2 pg 25.2 - 33.5 pg [place] MCHC (RBC) [Mass/Vol] 31.8 g/dL 28.4 - 34.8 g/dL [place] MCV (RBC) [Entitic vol] 95.2 fL 82.6 - 102.9 fL [place] Monocytes (Bld) [#/Vol] 0.00 10*3/uL Low [place] Monocytes/100 WBC (Bld) 0 % Low 3 - 12 % [place] Morphology Geovany (Bld) [Interp] Normal [place] Platelet mean volume (Bld) [Entitic vol] 8.6 fL 8.1 - 13.5 fL [place] Platelets (Bld) [#/Vol] NOT REPORTED [place] Platelets (Bld) [#/Vol] 335 10*3/uL [place] RBC (Bld) [#/Vol] 3.54 10*6/uL Low 3.95 - 5.1 1 m/uL [place] RBC morphology finding Nom (Bld) NOT REPORTED [place] Segmented neutrophils/100 WBC (Bld) 87 % High 36 - 65 % [place] Segs Absolute 6.52 [place] WBC (Bld) [#/Vol] 7.5 10*3/uL [place] WBC (Bld) [#/Vol] 0.0 10*3/uL 0.0 per 10 0 WBC [place] WBC Morphology NOT REPORTED [place] CBC with Diffon 08-02-2019 Abs. Basophil 0.00 k/uL Normal 0.0-0.2 [facility] Comment on above: Performed By: #### D CITLALY, LIP, CMPX, TROPI, BNP, CDP, PT #### [facility] [address] [place] [address] Dr. [place], [facility] Porcelain Enamel Sprayer: Sami Dominguez MD Abs.Imm.Granulocyte 0.00 k/uL Normal 0.00-0.30 [facility] Comment on above: Performed By: #### D CITLALY, LIP, CMPX, TROPI, BNP, CDP, PT #### [address] [place], [facility] Porcelain Enamel Sprayer: Sami Dominguez MD Abs.Neutrophil (Seg) 6.52 k/uL Normal 1.50-8.10 [facility] Comment on above: Performed By: #### D CITLALY, LIP, CMPX, TROPI, BNP, CDP, PT #### [facility] [address] [place], [facility] Porcelain Enamel Sprayer: Sami Dominguez MD Basophils/100 WBC (Bld) 0 % Normal 0-2 [facility] Comment on above: Performed By: #### D CITLALY, LIP, CMPX, TROPI, BNP, CDP, PT #### [facility] [address] [place], [facility] Porcelain Enamel Sprayer: Sami Dominguez MD Eosinophils (Bld) [#/Vol] 0.08 10*3/uL Normal 0.00-0.44 [facility] Comment on above: Performed By: #### D CITLALY, LIP, CMPX, TROPI, BNP, CDP, PT #### [facility] [address] [place], [facility] Porcelain Enamel Sprayer: Sami Dominguez MD Eosinophils/100 WBC (Bld) 1 % Normal 1-4 [facility] Comment on above: Performed By: #### D CITLALY, LIP, CMPX, TROPI, BNP, CDP, PT #### [address] [place] [address] Porcelain Enamel Sprayer: Sami Dominguez MD Immature granulocytes (Bld) [#/Vol] 0 % Normal 0 [facility] Comment on above: Performed By: #### D CITLALY, LIP, CMPX, TROPI, BNP, CDP, PT #### [address] [place], [facility] Porcelain Enamel Sprayer: Sami Dominguez MD Lymphocytes (Bld) [#/Vol] 0.90 10*3/uL Low 1.10-3.70 [facility] Comment on above: Performed By: #### D CITLALY, LIP, CMPX, TROPI, BNP, CDP, PT #### [facility] [address] [place], [facility] Porcelain Enamel Sprayer: Sami Dominguez MD Lymphocytes/100 WBC (Bld) 12 % Low 24-43 [facility] Comment on above: Performed By: #### D CITLALY, LIP, CMPX, TROPI, BNP, CDP, PT #### [facility] [address] [place], [facility] Porcelain Enamel Sprayer: Sami Dominguez MD Monocytes (Bld) [#/Vol] 0.00 10*3/uL Low 0.10-1.20 [facility] Comment on above: Performed By: #### D CITLALY, LIP, CMPX, TROPI, BNP, CDP, PT #### [facility] [address] [place], [place] [id number] Porcelain Enamel Sprayer: Sami Dominguez MD Monocytes/100 WBC (Bld) 0 % Low 3-12 [facility] Comment on above: Performed By: #### D CITLALY, LIP, CMPX, TROPI, BNP, CDP, PT #### [facility] [address] [place], [place] [id number] Porcelain Enamel Sprayer: Sami Dominguez MD Morphology Geovany (Bld) [Interp] Normal Normal [facility] Comment on above: Performed By: #### D CITLALY, LIP, CMPX, TROPI, BNP, CDP, PT #### [address] [place], [place] [address] Porcelain Enamel Sprayer: Sami Dominguez MD Neutrophil (Seg) 87 % High 36-65 [facility] Comment on above: Performed By: #### D CITLALY, LIP, CMPX, TROPI, BNP, CDP, PT #### [address] [place], [place] [id number] Porcelain Enamel Sprayer: Sami Dominguez MD Erythrocyte distribution width (RBC) [Ratio] 13.2 % Normal 11.8-14.4 [facility] Comment on above: Performed By: #### D CITLALY, LIP, CMPX, TROPI, BNP, CDP, PT #### [address] [place], [place] [id number] Porcelain Enamel Sprayer: Sami Dominguez MD Hematocrit (Bld) [Volume fraction] 33.7 % Low 36.3-47.1 [facility] Comment on above: Performed By: #### D CITLALY, LIP, CMPX, TROPI, BNP, CDP, PT #### [address] [place], [facility] Porcelain Enamel Sprayer: Sami Dominguez MD Hemoglobin (Bld) [Mass/Vol] 10.7 g/dL Low 11.9-15.1 [facility] Comment on above: Performed By: #### D CITLALY, LIP, CMPX, TROPI, BNP, CDP, PT #### [facility] [address] [place] [facility] Porcelain Enamel Sprayer: Sami Dominguez MD MCH (RBC) [Entitic mass] 30.2 pg Normal 25.2-33.5 [facility] Comment on above: Performed By: #### D CITLALY, LIP, CMPX, TROPI, BNP, CDP, PT #### [facility] [address] [place] [id number] Porcelain Enamel Sprayer: Sami Dominguez MD MCHC (RBC) [Mass/Vol] 31.8 g/dL Normal 28.4-34.8 [facility] Comment on above: Performed By: #### D CITLALY, LIP, CMPX, TROPI, BNP, CDP, PT #### [address] [place], [facility] Porcelain Enamel Sprayer: Sami Dominguez MD MCV (RBC) [Entitic vol] 95.2 fL Normal 82.6-102.9 [facility] Comment on above: Performed By: #### D CITLALY, LIP, CMPX, TROPI, BNP, CDP, PT #### [facility] [address] [place], [facility] Porcelain Enamel Sprayer: Sami Dominguez MD NRBC Automated 0.0 per 100 WBC Normal 0.0 [facility] Comment on above: Performed By: #### D CITLALY, LIP, CMPX, TROPI, BNP, CDP, PT #### [facility] [address] [place] [address] Porcelain Enamel Sprayer: Sami Dominguez MD Platelet mean volume (Bld) [Entitic vol] 8.6 fL Normal 8.1-13.5 [facility] Comment on above: Performed By: #### D CITLALY, LIP, CMPX, TROPI, BNP, CDP, PT #### [facility] [address] [place], [facility] Porcelain Enamel Sprayer: Sami Dominguez MD Platelets ([facility]) [#/Vol] 335 10*3/uL Normal 138-453 [facility] Comment on above: Performed By: #### D CITLALY, LIP, CMPX, TROPI, BNP, CDP, PT #### [facility] [address] [place], [facility] Porcelain Enamel Sprayer: Sami Dominguez MD RBC (d) [#/Vol] 3.54 10*6/uL Low 3.95-5.11 [facility] Comment on above: Performed By: #### D CITLALY, LIP, CMPX, TROPI, BNP, CDP, PT #### [facility] [address] [place], [place] [address] Porcelain Enamel Sprayer: Sami Dominguez MD WBC (d) [#/Vol] 7.5 10*3/uL Normal 3.5-11.3 [facility] Comment on above: Performed By: #### D CITLALY, LIP, CMPX, TROPI, BNP, CDP, PT #### [address] [place], [facility] Porcelain Enamel Sprayer: Sami Dominguez MD Auto Diff Performed NOT REPORTED Normal [facility] Comment on above: Performed By: #### D CITLALY, LIP, CMPX, TROPI, BNP, CDP, PT #### [facility] [address] [place], [facility] Porcelain Enamel Sprayer: Sami Dominguez MD Platelets ([facility]) [#/Vol] NOT REPORTED Normal [facility] Comment on above: Performed By: #### D CITLALY, LIP, CMPX, TROPI, BNP, CDP, PT #### [address] [place], [facility] Porcelain Enamel Sprayer: Sami Dominguez MD RBC morphology finding Nom (Bld) NOT REPORTED Normal [facility] Comment on above: Performed By: #### D CITLALY, LIP, CMPX, TROPI, BNP, CDP, PT #### [facility] [address] [place], [place] [id number] Porcelain Enamel Sprayer: Sami Dominguez MD WBC Morphology NOT REPORTED Normal [facility] Comment on above: Performed By: #### D CITLALY, LIP, CMPX, TROPI, BNP, CDP, PT #### [facility] [address] [place] [address] Porcelain Enamel Sprayer: Sami Dominguez MD CTA CHEST ABDOMEN PELVIS [...] Yunier Yang MD 08/02/19 Final result Normal [facility] Moshe, pn Incoming Radiant Results From [facility] - 08/02/2019 1:21 PM EDT EXAMINATION: CTA [...] recommended. Reference: J Am Danika Radiol 2013;10:675-681 [place], [place] EXAMINATION: CTA OF THE CHEST, ABDOMEN [...] and caliber without aneurysmal dilatation or dissection. [place] No evidence for aneurysmal dilatation or dissection of the aorta or its branches. Findings most compatible with polycystic kidney disease. Subtle inflammation adjacent to the descending colon is suggestive of subtle colitis. No perforation or abscess formation. No free intraperitoneal air or fluid. 4.1 cm benign appearing ovarian cyst No follow-up imaging is recommended. Reference: J Am Danika Radiol 2013;10:675-681 [place], [place] Comp Metabolic Pr/rfx MGon 1 (cont.) Normal [facility] Comment on above: Result Comment: Aver age GFR for 40-49 years old: 99 mL/min/1.73sq m Chronic Kidney Disease: <60 mL/min/1.73sq m Kidney failure: <15 mL/min/1.73sq m eGFR calculated using average adult body mass. Additional eGFR calculator available at: http://www.Bugcrowd.Hubba/multiple_crcl_2012.htm Performed By: #### D CITLALY, LIP, CMPX, TROPI, BNP, CDP, PT #### [facility] [address] [place] [address] Porcelain Enamel Sprayer: Sami Dominguez MD Albumin [Mass/Vol] 4.4 g/dL Normal 3.5-5.2 [facility] Comment on above: Performed By: #### D CITLALY, LIP, CMPX, TROPI, BNP, CDP, PT #### [facility] [address] [place] [address] Porcelain Enamel Sprayer: Sami Dominguez MD Albumin/Globulin [Mass ratio] 1.0 {ratio} Normal 1.0-2.5 [facility] Comment on above: Performed By: #### D CITLALY, LIP, CMPX, TROPI, BNP, CDP, PT #### [facility] [address] [place] [id number] Porcelain Enamel Sprayer: Sami Dominguez MD Alkaline Phos 98 U/L Normal 35-104 [facility] Comment on above: Performed By: #### D CITLALY, LIP, CMPX, TROPI, BNP, CDP, PT #### [facility] [address] [place] [id number] Porcelain Enamel Sprayer: Sami Dominguez MD ALT [Catalytic activity/Vol] 16 U/L Normal 5-33 [facility] Comment on above: Performed By: #### D CITLALY, LIP, CMPX, TROPI, BNP, CDP, PT #### [facility] [address] [place] [facility] Porcelain Enamel Sprayer: Sami Dominguez MD Anion gap [Moles/Vol] 18 mmol/L High 9-17 [facility] Comment on above: Performed By: #### D CITLALY, LIP, CMPX, TROPI, BNP, CDP, PT #### [facility] [address] [place], [facility] Porcel[employer] Sprayer: Sami Dominguez MD AST [Catalytic activity/Vol] 18 U/L Normal <32 [facility] Comment on above: Performed By: #### D CITLALY, LIP, CMPX, TROPI, BNP, CDP, PT #### [facility] [address] [place], [facility] Porcel[employer] Sprayer: Sami Dominguez MD Bilirubin Ql (U) 0.31 mg/dL Normal 0.3-1.2 [facility] Comment on above: Performed By: #### D CITLALY, LIP, CMPX, TROPI, BNP, CDP, PT #### [facility] [address] [place] [address] Porcelain Enamel Sprayer: Sami Dominguez MD BUN/CRE Ratio 13 Normal 9-20 [facility] Comment on above: Performed By: #### D CITLALY, LIP, CMPX, TROPI, BNP, CDP, PT #### [facility] [address] [place], [place] [id number] [employer] Sprayer: Sami Dominguez MD Calcium [Mass/Vol] 9.7 mg/dL Normal 8.6-10.4 [facility] Comment on above: Performed By: #### D CITLALY, LIP, CMPX, TROPI, BNP, CDP, PT #### [facility] [address] [place], [facility] [employer]cel[employer] Sprayer: Sami Dominguez MD Chloride [Moles/Vol] 95 mmol/L Low 98-107 [facility] Comment on above: Performed By: #### D CITLALY, LIP, CMPX, TROPI, BNP, CDP, PT #### [facility] [address] [place], [facility] Porcel[employer]amel Sprayer: Sami Dominguez MD CO2 [Moles/Vol] 18 mmol/L Low 20-31 [facility] Comment on above: Performed By: #### D CITLALY, LIP, CMPX, TROPI, BNP, CDP, PT #### [facility] [address] [place], [facility] [employer] Sprayer: Sami Dominguez MD Creatinine [Mass/Vol] 3.07 mg/dL High 0.50-0.90 [facility] Comment on above: Performed By: #### D CITLALY, LIP, CMPX, TROPI, BNP, CDP, PT #### [facility] [address] [place], [facility] [employer]ain [employer]amel Sprayer: Sami Dominguez MD GFR, Amer 20 mL/min Low >60 [facility] Comment on above: Performed By: #### D CITLALY, LIP, CMPX, TROPI, BNP, CDP, PT #### [facility] [address] [place], [place] [id number] [employer] Sprayer: Sami Dominguez MD GFR,non Amer 17 mL/min Low >60 [facility] Comment on above: Performed By: #### D CITLALY, LIP, CMPX, TROPI, BNP, CDP, PT #### [facility] [address] [place] [address] Porcelain [employer]amel Sprayer: Sami Dominguez MD Glucose [Mass/Vol] 89 mg/dL Normal 70-99 [facility] Comment on above: Performed By: #### D CITLALY, LIP, CMPX, TROPI, BNP, CDP, PT #### [facility] [address] [place] [address] Porcel[employer] Sprayer: Sami Dominguez MD Potassium [Moles/Vol] 3.9 mmol/L Normal 3.7-5.3 [facility] Comment on above: Performed By: #### D CITLALY, LIP, CMPX, TROPI, BNP, CDP, PT #### [facility] [address] [place] [address] Porcelain Enamel Sprayer: Sami Dominguez MD Protein [Mass/Vol] 8.8 g/dL High 6.4-8.3 [facility] Comment on above: Performed By: #### D CITLALY, LIP, CMPX, TROPI, BNP, CDP, PT #### [facility] [address] [place] [address] Porcelain Enamel Sprayer: Sami Dominguez MD Sodium [Moles/Vol] 131 mmol/L Low 135-144 [facility] Comment on above: Performed By: #### D CITLALY, LIP, CMPX, TROPI, BNP, CDP, PT #### [facility] [address] [place] [address] Porcelain Enamel Sprayer: Sami Dominguez MD Staging: Normal [facility] Comment on above: Result Comment: Stag e 1: Some kidney damage normal GFR Stage 2: Mild kidney damage GFR 60-89 Stage 3: Moderate kidney damage GFR 30-59 Stage 4: Severe kidney damage GFR 15-29 Stage 5: Severe kidney damage GFR <15 ESRD - chronic treatment by dialysis or transplant Performed By: #### D CITLALY, LIP, CMPX, TROPI, BNP, CDP, PT #### [facility] [address] [place] [address] Porcelain Enamel Sprayer: Sami Dominguez MD Urea nitrogen [Mass/Vol] 39 mg/dL High 6-20 [facility] Comment on above: Performed By: #### D CITLALY, LIP, CMPX, TROPI, BNP, CDP, PT #### [facility] [address] [place] [address] Porcelain Enamel Sprayer: Sami Dominguez MD Comprehensive Metabolic Pane l w/ Reflex to on 08-02-2019 Albumin [Mass/Vol] 4.4 g/dL 3.5 - 5.2 g/dL [place] Albumin/Globulin [Mass ratio] 1.0 {ratio} [place] ALP [Catalytic activity/Vol] 98 U/L 35 - 104 U/L [place] ALT [Catalytic activity/Vol] 16 U/L 5 - 33 U/L [place] Anion gap [Moles/Vol] 18 mmol/L High 9 - 17 mmol/L [place] AST [Catalytic activity/Vol] 18 U/L <32 [place] Bilirubin Ql (U) 0.31 mg/dL 0.3 - 1.2 mg/dL [place] Bun/Cre Ratio 13 [place] Calcium [Mass/Vol] 9.7 mg/dL 8.6 - 10. 4 mg/dL [place] Chloride [Moles/Vol] 95 mmol/L Low 98 - 10 7 mmol/L [place] CO2 [Moles/Vol] 18 mmol/L Low 20 - 31 mmol/L [place] Creatinine [Mass/Vol] 3.07 mg/dL High 0.5 - 0.9 mg/dL [place] GFR 20 mL/min Low >60 [place] GFR Non- 17 mL/min Low >60 [place] Glucose [Mass/Vol] 89 mg/dL 70 - 99 mg/dL [place] Interpretation and review of laboratory results Abnormal [place] Potassium [Moles/Vol] 3.9 mmol/L 3.7 - 5.3 mmol/L [place] Protein [Mass/Vol] 8.8 g/dL High 6.4 - 8.3 g/dL [place] Sodium [Moles/Vol] 131 mmol/L Low 135 - 144 mmol/L [place] Urea nitrogen [Mass/Vol] 39 mg/dL High 6 - 20 mg/dL [place] D-Dimer Teston 08-02-2019 D-Dimer Test 1.15 mg/L FEU High 0.19-0.50 [facility] Comment on above: Result Comment: Elevated [...] LIP, CMPX, TROPI, BNP, CDP, PT #### [facility] [address] [place] [address] Porcelain Enamel Sprayer: Sami Dominguez MD D-Dimer, Quantitativeon 07-07 D-Dimer, Quant 1.15 [place] Comment on above: Elevated levels of [...] Interpretation and review of laboratory results Abnormal [place] Lactate, Sepsison 08-02-2019 Lactic Acid, Sepsis 3.6 mmol/L High 0.5-1.9 [facility] Comment on above: Performed By: #### L ACDS #### [facility] [address] [place] [address] [place] [address] Porcelain Enamel Sprayer: Sami Dominguez MD Lactic Acid,Sep Wbld NOT REPORTED Normal 0.5-1.9 [facility] Comment on above: Performed By: #### L ACDS #### [address] [place] [address] Porcelain Enamel Sprayer: Sami Dominguez MD Interpretation and review of laboratory results Abnormal [place] Lactic Acid, Sepsis 3.6 mmol/L High 0.5 - 1. 9 mmol/L [place] Lactic Acid, Sepsis, Whole Blood NOT REPORTED 0.5 - 1.9 mmol/L [place] Lactic Acidon 08-02-2019 Lactate [Moles/Vol] 1.0 mmol/L Normal 0.5-2.2 [facility] Comment on above: Performed By: #### D CITLALY, LIP, CMPX, TROPI, BNP, CDP, PT #### [address] [place] [address] Porcelain Enamel Sprayer: Sami Dominguez MD Lactate [Moles/Vol] NOT REPORTED Normal 0.7-2.1 [facility] Comment on above: Performed By: #### D CITLALY, LIP, CMPX, TROPI, BNP, CDP, PT #### [address] [place] [address] Porcelain Enamel Sprayer: Sami Dominguez MD Lactic Acid, Plasmaon 2018 Lactate [Moles/Vol] 1 mmol/L 0.5 - 2. 2 mmol/L [place] Lactic Acid, Whole Blood NOT REPORTED 0.7 - 2.1 mmol/L [place] Lipaseon 08-02-2019 Lipase [Catalytic activity/Vol] 38 U/L Normal 13-60 [facility] Comment on above: Performed By: #### D CITLALY, LIP, CMPX, TROPI, BNP, CDP, PT #### [facility] [address] [place] [address] [employer]ain Enamel Sprayer: Sami Dominguez MD Lipase [Catalytic activity/Vol] 38 U/L 13 - 60 U/L [place] Metabolic Panelon 08-02-2019 GFR/1.73 sq M predicted among non-blacks MDRD (S/P/Bld) [Vol rate/Area] [place] Comment on above: Stage 1: Some [...] body mass. Additional eGFR calculator available at: http://www.[employer]/multiple_crcl_2012.htm Microscopic Urinalysison Amorphous, UA NOT REPORTED None [place] Bacteria, UA 1+ Abnormal None [place] Casts UA NOT REPORTED /LPF [place] Crystals UA NOT REPORTED None /HPF [place] Epithelial Cells UA 2 TO 5 [place] Interpretation and review of laboratory results Abnormal [place] Mucus, UA NOT REPORTED None [place] Other Observations UA NOT REPORTED NOT REQ. M [place] RBC (U) [#/Vol] None [place] Renal Epithelial, Urine NOT REPORTED 0 /HPF [place] Trichomonas, UA NOT REPORTED None [place] WBC, UA 50 TO 100 [place] Yeast, UA NOT REPORTED None [place] PTon 08-02-2019 INR Coag (PPP) [Relative time] 1.0 {INR} Normal 0.9-1.2 [facility] Comment on above: Performed By: #### D CITLALY, LIP, CMPX, TROPI, BNP, CDP, PT #### [facility] [address] [place] [address] Porcelain Enamel Sprayer: Sami Dominguez MD PT Coag (PPP) [Time] 10.0 s Normal 9.7-12.2 [facility] Comment on above: Performed By: #### D CITLALY, LIP, CMPX, TROPI, BNP, CDP, PT #### [facility] [address] [place] [address] Porcelain Enamel Sprayer: Sami Dominguez MD Protime-INRon 08-02-2019 INR Coag (PPP) [Relative time] 1.0 {INR} [place] PT Coag (PPP) [Time] 10 s [place], [place] Troponinon 08-02-2019 Troponin I.cardiac [Mass/Vol] ng/mL Normal <0.03 [facility] Comment on above: Result Comment: Trop onin T results cannot be compared to Troponin-I results. Performed By: #### D CITLALY, LIP, CMPX, TROPI, BNP, CDP, PT #### [facility] [address] [place] [address] Porcelain Enamel Sprayer: Sami Dominguez MD Troponin I.cardiac [Mass/Vol] Normal [facility] Comment on above: Result Comment: Refe [...] TROPI, BNP, CDP, PT #### [facility] [address] [place] [address] Porcelain Enamel Sprayer: Sami Dominguez MD Troponin I.cardiac [Mass/Vol] NOT REPORTED Normal 0-14 [facility] Comment on above: Performed By: #### D CITLALY, LIP, CMPX, TROPI, BNP, CDP, PT #### [facility] [address] [place] [address] [place] [address] Porcelain Enamel Sprayer: Sami Dominguez MD Troponin I.cardiac [Mass/Vol] [place] Comment on above: Reference Range: <0.03 [...] diagnosis. Troponin T.cardiac [Mass/Vol] ug/L <0.03 ng/mL [place] Comment on above: Troponin T results c annot be compared to Troponin-I results. Troponin, High Sensitivity NOT REPORTED 0 - 14 ng/L [place] Troponin I.cardiac [Mass/Vol] ng/mL Normal <0.03 [facility] Comment on above: Result Comment: Trop onin T results cannot be compared to Troponin-I results. Performed By: #### D CITLALY, LIP, CMPX, TROPI, BNP, CDP, PT #### [address] [place] [address] Porcelain Enamel Sprayer: Sami Dominguez MD Troponin I.cardiac [Mass/Vol] Normal [facility] Comment on above: Result Comment: Refe [...] LIP, CMPX, TROPI, BNP, CDP, PT #### [facility] [address] [place] [address] Porcelain Enamel Sprayer: Sami Dominguez MD Troponin I.cardiac [Mass/Vol] NOT REPORTED Normal 0-14 [facility] Comment on above: Performed By: #### D CITLALY, LIP, CMPX, TROPI, BNP, CDP, PT #### [facility] [address] [place] [address] Porcelain Enamel Sprayer: Sami Dominguez MD Troponin I.cardiac [Mass/Vol] [place] Comment on above: Reference Range: <0.03 [...] diagnosis. Troponin T.cardiac [Mass/Vol] ug/L <0.03 ng/mL [place] Comment on above: Troponin T results c annot be compared to Troponin-I results. Troponin, High Sensitivity NOT REPORTED 0 - 14 ng/L [place] UA w/Reflex Cultureon 2018 Acetoacetic Acid,Ur Negative Normal NEG [facility] Comment on above: Performed By: #### D CITLALY, LIP, CMPX, TROPI, BNP, CDP, PT #### [facility] [address] [place] [address] [place] [address] Porcelain Enamel Sprayer: Sami Dominguez MD Bilirubin, SemiQt,Ur Negative Normal NEG [facility] Comment on above: Performed By: #### D CITLALY, LIP, CMPX, TROPI, BNP, CDP, PT #### [facility] [address] [place] [address] Porcelain Enamel Sprayer: Sami Dominguez MD Color (U) YELLOW Normal YEL [facility] Comment on above: Performed By: #### D CITLALY, LIP, CMPX, TROPI, BNP, CDP, PT #### [facility] [address] [place] [address] Porcelain Enamel Sprayer: Sami Dominguez MD Glucose Ql (U) Negative Normal NEG [facility] Comment on above: Performed By: #### D CITLALY, LIP, CMPX, TROPI, BNP, CDP, PT #### [facility] [address] [place], [place] [id number] Por[employer] Sprayer: Sami Dominguez MD Hemoglobin, Ur 1+ Abnormal NEG [facility] Comment on above: Performed By: #### D CITLALY, LIP, CMPX, TROPI, BNP, CDP, PT #### [facility] [address] [place], [facility] Porcelain Enamel Sprayer: Sami Dominguez MD Leukocyte esterase Test strip Ql (U) MODERATE Abnormal NEG [facility] Comment on above: Performed By: #### D CITLALY, LIP, CMPX, TROPI, BNP, CDP, PT #### [facility] [address] [place] [address] [place] [place], [place] [id number] [employer]amel Sprayer: Sami Dominguez MD Nitrite,Ur Negative Normal NEG [facility] Comment on above: Performed By: #### D CITLALY, LIP, CMPX, TROPI, BNP, CDP, PT #### [address] [place] [address] Porcelain Enamel Sprayer: Sami Dominguez MD pH (U) 6.0 [pH] Normal 5.0-9.0 [facility] Comment on above: Performed By: #### D CITLALY, LIP, CMPX, TROPI, BNP, CDP, PT #### [facility] [address] [place], [facility] Porcelain Enamel Sprayer: Sami Dominguez MD Protein Ql (U) TRACE Abnormal NEG [facility] Comment on above: Performed By: #### D CITLALY, LIP, CMPX, TROPI, BNP, CDP, PT #### [facility] [address] [place] [address] Porcelain Enamel Sprayer: Sami Dominguez MD Specific gravity (U) [Rel density] 1.010 Normal 1.010-1.020 [facility] Comment on above: Performed By: #### D CITLALY, LIP, CMPX, TROPI, BNP, CDP, PT #### [facility] [address] [place] [address] Porcelain Enamel Sprayer: Sami Dominguez MD Turbidity CLEAR Normal CLEAR [facility] Comment on above: Performed By: #### D CITLALY, LIP, CMPX, TROPI, BNP, CDP, PT #### [facility] [address] [place] [address] Porcelain Enamel Sprayer: Sami Dominguez MD Urobilinogen,Ur Normal Normal NORM [facility] Comment on above: Performed By: #### D CITLALY, LIP, CMPX, TROPI, BNP, CDP, PT #### [address] [place] [address] Porcelain Enamel Sprayer: Sami Dominguez MD Comment NOT REPORTED Normal [facility] Comment on above: Performed By: #### D CITLALY, LIP, CMPX, TROPI, BNP, CDP, PT #### [address] [place] [address] Porcelain Enamel Sprayer: Sami Dominguez MD Urinalysis Reflex to Culture on 08-02-2019 Bilirubin Urine Negative NEGATIVE [facility], [place] Color, UA YELLOW YELLOW [place] Glucose, Ur Negative NEGATIVE [place] Interpretation and review of laboratory results Abnormal [place] Ketones Ql (U) Negative NEGATIVE [place] Leukocyte esterase Test strip Ql (U) MODERATE Abnormal NEGATIVE [facility], [place] Nitrite, Urine Negative NEGATIVE [place] pH, UA 6.0 [place] Protein (U) [Mass/Vol] TRACE Abnormal NEGATIVE [facility] [place], [place] Specific [place], UA 1.010 [facility], [place] Turbidity UA CLEAR CLEAR [place] Urinalysis Comments NOT REPORTED [facility], [place] Urine Hgb 1+ Abnormal NEGATIVE [facility], [place] Urobilinogen, Urine Normal Normal [facility] [place], [place] Urinalysis,Microon 10-28-201 9 ----- Normal [facility] Comment on above: Performed By: #### D CITLALY, LIP, CMPX, TROPI, BNP, CDP, PT #### [facility] [address] [place] [address] Porcelain Enamel Sprayer: Sami Dominguez MD Bacteria LM.HPF (Urine sed) [#/Area] 1+ Abnormal [facility] Comment on above: Performed By: #### D CITLALY, LIP, CMPX, TROPI, BNP, CDP, PT #### [facility] [address] [place] [address] Porcelain Enamel Sprayer: Sami Dominguez MD Epithelial cells LM.HPF (Urine sed) [#/Area] 2 TO 5 Normal 0-25 [facility] Comment on above: Performed By: #### D CITLALY, LIP, CMPX, TROPI, BNP, CDP, PT #### [facility] [address] [place] [address] Porcelain Enamel Sprayer: Sami Dominguez MD RBC (U) [#/Vol] None Normal 0-2 [facility] Comment on above: Performed By: #### D CITLALY, LIP, CMPX, TROPI, BNP, CDP, PT #### [facility] [address] [place] [address] Porcelain Enamel Sprayer: Sami Dominguez MD WBC (U) [#/Vol] 50 TO 100 Normal 0-5 [facility] Comment on above: Performed By: #### D CITLALY, LIP, CMPX, TROPI, BNP, CDP, PT #### [facility] [address] [place] [address] Porcelain Enamel Sprayer: Sami Dominguez MD Amorphous sediment LM Ql (Urine sed) NOT REPORTED Normal [facility] Comment on above: Performed By: #### D CITLALY, LIP, CMPX, TROPI, BNP, CDP, PT #### [facility] [address] [place] [address] Porcelain Enamel Sprayer: Sami Dominguez MD Casts LM.LPF (Urine sed) [#/Area] NOT REPORTED Normal [facility] Comment on above: Performed By: #### D CITLALY, LIP, CMPX, TROPI, BNP, CDP, PT #### [facility] [address] [place] [address] Porcelain Enamel Sprayer: Sami Dominguez MD Crystals LM Nom (Urine sed) NOT REPORTED Normal NONE [facility] Comment on above: Performed By: #### D CITLALY, LIP, CMPX, TROPI, BNP, CDP, PT #### [address] [place] [id number] Porcelain Enamel Sprayer: Sami Dominguez MD Epithelial, Renal NOT REPORTED Normal 0 [facility] Comment on above: Performed By: #### D CITLALY, LIP, CMPX, TROPI, BNP, CDP, PT #### [address] [place] [address] Porcelain Enamel Sprayer: Sami Dominguez MD Mucus Strands NOT REPORTED Normal [facility] Comment on above: Performed By: #### D CITLALY, LIP, CMPX, TROPI, BNP, CDP, PT #### [address] [place] [address] Porcelain Enamel Sprayer: Sami Dominguez MD Other Observations NOT REPORTED Normal NREQ [facility] Comment on above: Performed By: #### D CITLALY, LIP, CMPX, TROPI, BNP, CDP, PT #### [facility] [address] [place] [address] Porcelain Enamel Sprayer: Sami Dominguez MD Trichomonas NOT REPORTED Normal [facility] Comment on above: Performed By: #### D CITLALY, LIP, CMPX, TROPI, BNP, CDP, PT #### [facility] [address] [place] [address] Porcelain Enamel Sprayer: Sami Dominguez MD Yeast LM Ql (Urine sed) NOT REPORTED Normal NONE [facility] Comment on above: Performed By: #### D CITLALY, LIP, CMPX, TROPI, BNP, CDP, PT #### [facility] [address] [place] [address] Porcelain Enamel Sprayer: Sami Dominguez MD XR CHEST PORTABLEon 08-02-20 [...] Cullen Ngo MD 08/02/19 Final result Normal [facility] EXAMINATION: ONE XRA Y VIEW OF THE CHEST 08/02/2019 12:59 pm COMPARISON: None. HISTORY: ORDERING SYSTEM PROVIDED HISTORY: CP TECHNOLOGIST PROVIDED HISTORY: CP FINDINGS: Heart size and pulmonary vessels are within normal limits. Lungs are clear. No focal infiltrates or significant pleural effusions are seen. There is no acute osseous abnormality. Monitor leads overlie the chest. [place] No acute cardiopulmo nary process. [place] Moshe, [facility] Incoming Radiant Results From [facility] - 08/02/2019 1:10 PM EDT EXAMINATION: ONE [...] the chest. IMPRESSION: No acute cardiopulmonary process. [place] Vital Signs Date Time Vital Sign Value Performing Clinician Facility 03-15-2024 17:34-0400 Body height 157.48 cm [employer] Andreia Edwards Work Phone: [facility] 03-15-2024 17:34-0400 Body mass index (BMI) [Ratio] 31.8 kg/m2 [employer] Andreia Jerry Work Phone: [facility] 03-15-2024 17:34-0400 Body temperature 100.3 [degF] [employer] Andreia Jerry Work Phone: [facility] 03-15-2024 17:34-0400 Body weight 78.92 kg [employer] Andreia Jerry Work Phone: [facility] 03-15-2024 17:34-0400 Diastolic blood pressure 79 mm[Hg] [employer] Andreia Jerry Work Phone: [facility] 03-15-2024 17:34-0400 Heart rate 88 /min [employer] Andreia Jerry Work Phone: [facility] 03-15-2024 17:34-0400 Respiratory rate 18 /min [employer] Andreia Jerry Work Phone: [facility] 03-15-2024 17:34-0400 SaO2% (BldA) [Mass fraction] 96 % [employer] Andreia Jerry Work Phone: [facility] 03-15-2024 17:34-0400 Systolic blood pressure 121 mm[Hg] [employer] Andreia Jerry Work Phone: [facility] 07-30-2022 17:40-0400 Body height 157.48 cm Yaneth Toni Other [facility] [employer] Other 07-30-2022 17:40-0400 Body mass index (BMI) [Ratio] 36.69 kg/m2 Yaneth Toni Other [employer] Other 07-30-2022 17:40-0400 Body temperature 97.4 [degF] Yaneth Toni Other [employer] Other 07-30-2022 17:40-0400 Body weight 90.99 kg Yaneth Toni Other [employer] Other 07-30-2022 17:40-0400 Diastolic blood pressure 85 mm[Hg] Yaneth Toni Other [employer] Other 07-30-2022 17:40-0400 Respiratory rate 18 /min Yaneth Toni Other [employer] Other 07-30-2022 17:40-0400 SaO2% (BldA) [Mass fraction] 99 % Yaneth Toni Other [employer] Other 07-30-2022 17:40-0400 Systolic blood pressure 124 mm[Hg] Yaneth Toni Other [employer] Other 07-03-2022 09:45-0400 Body height 157.48 cm Estefania Camarillogary Other [employer] Other 07-03-2022 09:45-0400 Body mass index (BMI) [Ratio] 36.76 kg/m2 Estefania Vo Other [employer] Other 07-03-2022 09:45-0400 Body temperature 97 [degF] Estefania Vo Other [employer] Other 07-03-2022 09:45-0400 Body weight 91.17 kg Estefania Vo Other [employer] Other 07-03-2022 09:45-0400 Diastolic blood pressure 60 mm[Hg] Estefania Vo Other [employer] Other 07-03-2022 09:45-0400 SaO2% (BldA) [Mass fraction] 99 % Estefania Vo Other [facility] [employer] Other 07-03-2022 09:45-0400 Systolic blood pressure 110 mm[Hg] Estefania Vo Other [facility] [employer] Other 06-20-2022 16:10-0400 Diastolic blood pressure 68 mm[Hg] DO Ming Alexis Work Phone: [facility] 06-20-2022 16:10-0400 Heart rate 69 /min DO Ming Alexis Work Phone: [facility] 06-20-2022 16:10-0400 Respiratory rate 18 /min DO Ming Alexis Work Phone: [facility] 06-20-2022 16:10-0400 SaO2% (BldA) [Mass fraction] 100 % DO Ming Alexis Work Phone: [facility] 06-20-2022 16:10-0400 Systolic blood pressure 126 mm[Hg] DO Ming Alexis Work Phone: [facility] 06-20-2022 13:15-0400 Body height 157.48 cm DO Ming Alexis Work Phone: [facility] 06-20-2022 13:15-0400 Body temperature 98.6 [degF] DO Ming Alexis Work Phone: [facility] 06-20-2022 13:15-0400 Body weight 91.5 kg DO Ming Alexis Work Phone: [facility] 06-18-2022 10:45-0400 Diastolic blood pressure 79 mm[Hg] DO Ming Alexis Work Phone: [facility] 06-18-2022 10:45-0400 Heart rate 66 /min DO Ming Espinoza Work Phone: [facility] 06-18-2022 10:45-0400 Respiratory rate 16 /min DO Ming Espinoza Work Phone: [facility] 06-18-2022 10:45-0400 SaO2% (BldA) [Mass fraction] 100 % DO Ming Espinoza Work Phone: [facility] 06-18-2022 10:45-0400 Systolic blood pressure 130 mm[Hg] DO Ming Espinoza Work Phone: [facility] 06-18-2022 08:08-0400 Body mass index (BMI) [Ratio] 37.8 kg/m2 DO Ming Espinoza Work Phone: [facility] 06-18-2022 07:41-0400 Body height 157.48 cm DO Ming Espinoza Work Phone: [facility] 06-18-2022 07:41-0400 Body weight 93.89 kg DO Ming Espinoza Work Phone: [facility] 06-18-2022 06:26-0400 Body temperature 98.5 [degF] DO Ming Espinoza Work Phone: [facility] 05-30-2022 11:00-0400 Body height 157.48 cm Jesus Parham Other [employer] [facility] [employer] [employer] Other 05-30-2022 11:00-0400 Body mass index (BMI) [Ratio] 36.76 kg/m2 Jesus Parham Other [employer] Other 05-30-2022 11:00-0400 Body temperature 97.6 [degF] Jesus Parham Other [employer] Other 05-30-2022 11:00-0400 Body weight 91.17 kg Jesus Parham Other [employer] Other 05-30-2022 11:00-0400 Diastolic blood pressure 76 mm[Hg] Jesus Chungjaclyn Other [employer] Other 05-30-2022 11:00-0400 SaO2% (BldA) [Mass fraction] 98 % Jesus Chungjaclyn Other [employer] Other 05-30-2022 11:00-0400 Systolic blood pressure 128 mm[Hg] Jesus Dione Other [employer] Other 05-02-2022 14:40-0400 Body height 157.48 cm Yaneth Toni Other [employer] Other 05-02-2022 14:40-0400 Body mass index (BMI) [Ratio] 36.76 kg/m2 Yaneth Toni Other [employer] Other 05-02-2022 14:40-0400 Body temperature 97.7 [degF] Yaneth Toni Other [employer] Other 05-02-2022 14:40-0400 Body weight 91.17 kg Yaneth Toni Other [employer] Other 05-02-2022 14:40-0400 Diastolic blood pressure 88 mm[Hg] Yaneth Toni Other [employer] Other 05-02-2022 14:40-0400 Respiratory rate 18 /min Yaneth Toni Other [employer] Other 05-02-2022 14:40-0400 SaO2% (BldA) [Mass fraction] 98 % Yaneth Toni Other [employer] Other 05-02-2022 14:40-0400 Systolic blood pressure 121 mm[Hg] Yaneth Toni Other [employer] Other 04-30-2022 10:10-0400 Body height 157.48 cm Dipika Juniorault Other [employer] Other 04-30-2022 10:10-0400 Body mass index (BMI) [Ratio] 37.86 kg/m2 Dipika Juniorault Other [employer] Other 04-30-2022 10:10-0400 Body temperature 97.4 [degF] Dipika Shantell Other [employer] Other 04-30-2022 10:10-0400 Body weight 93.9 kg Dipika Juniorault Other [employer] Other 04-30-2022 10:10-0400 Diastolic blood pressure 80 mm[Hg] Dipika Shantell Other [employer] Other 04-30-2022 10:10-0400 Respiratory rate 16 /min Dipika Juniorault Other [employer] Other 04-30-2022 10:10-0400 SaO2% (BldA) [Mass fraction] 100 % Dipika Shantell Other [employer] Other 04-30-2022 10:10-0400 Systolic blood pressure 117 mm[Hg] Dipika Shantell Other [employer] Other 04-01-2022 09:13-0400 Diastolic blood pressure 62 mm[Hg] DO Ming Espinoza Work Phone: [facility] 04-01-2022 09:13-0400 Heart rate 83 /min DO Ming Espinoza Work Phone: [facility] 04-01-2022 09:13-0400 Respiratory rate 16 /min DO Ming Espinoza Work Phone: [facility] 04-01-2022 09:13-0400 SaO2% (BldA) [Mass fraction] 97 % DO Ming Espinoza Work Phone: [facility] 04-01-2022 09:13-0400 Systolic blood pressure 101 mm[Hg] DO Ming Espinoza Work Phone: [facility] 04-01-2022 07:23-0400 Body height 157.48 cm DO Ming Espinoza Work Phone: [facility] 04-01-2022 07:23-0400 Body mass index (BMI) [Ratio] 37.8 kg/m2 DO Ming Espinoza Work Phone: [facility] 04-01-2022 07:23-0400 Body temperature 97.8 [degF] DO Ming Espinoza Work Phone: [facility] 04-01-2022 07:23-0400 Body weight 93.89 kg DO Ming Espinoza Work Phone: [facility] 12-06-2021 16:20-0500 Body height 157.48 cm Yaneth Toni Other [employer] [facility] [employer] Other 12-06-2021 16:20-0500 Body mass index (BMI) [Ratio] 37.86 kg/m2 Yaneth Toni Other [employer] Other 12-06-2021 16:20-0500 Body weight 93.9 kg Yaneth Toni Other [employer] Other 12-06-2021 16:20-0500 Diastolic blood pressure 89 mm[Hg] Yaneth Toni Other [employer] Other 12-06-2021 16:20-0500 Respiratory rate 18 /min Yaneth Toni Other [employer] Other 12-06-2021 16:20-0500 SaO2% (BldA) [Mass fraction] 97 % Yaneth Toni Other [employer] Other 12-06-2021 16:20-0500 Systolic blood pressure 134 mm[Hg] Yaneth Toni Other [employer] Other 08-02-2019 16:35-0400 Body Temperature 99.3 [degF] [facility] [place] [facility] 16:27-0400 Pulse (Heart Rate) 110 /min [place], [place] 08-02-2019 16:27-0400 Pulse Oximetry 98 % [facility] , [place] 08-02-2019 16:27-0400 Respiratory Rate 14 /min [facility] [place] 08-02-2019 16:16-0400 BP Diastolic 56 mm[Hg] [facility] [place] 08-02-2019 16:16-0400 BP Systolic 97 mm[Hg] [facility] [place] 08-02-2019 14:59-0400 BMI (Body Mass Index) 37.79 kg/m2 [facility] 08-02-2019 14:59-0400 Body weight 90.72 kg [facility] [place] 08-02-2019 14:59-0400 Height 154.[address] [facility] [place] , [place] Encounters Encounter Date Encounter Type Care Provider Facility Start: 03-15-2024 End: 03-15-2024 ambulatory Andreia M Jerry [facility] Work Phone: Start: 03-15-2024 End: 03-15-2024 Departed Referred [employer] Edwards Work Phone: [facility] [place] Work Phone: Start: 03-15-2024 End: 03-15-2024 Patient encounter procedure [employer] Andreia Boyceb Work Phone: [facility] Justin Work Phone: Start: 12-23-2023 End: 12-23-2023 ambulatory MUNIRA PHAN [facility] Start: 11-06-2023 End: 11-06-2023 Patient encounter procedure DO Ming Espinoza Work Phone: [facility] [address] Work Phone: Start: 11-06-2023 End: 11-06-2023 ambulatory DO Ming Espinoza Work Phone: [facility] Work Phone: Start: 10-13-2023 End: 10-13-2023 ambulatory MING ESPINOZA Not Available Start: 09-01-2023 End: 09-01-2023 ambulatory [facility] Start: 08-26-2023 ambulatory SUJIT DOLORES [facility] Start: 07-30-2023 End: 07-30-2023 ambulatory Referral Self Facility:[facility] Start: 06-28-[facility]: [facility] Start: 04-30-2023 Encounter for other preprocedural examination [facility] Start: 04-16-2023 End: 04-16-2023 ambulatory [facility] Start: 03-31-[address] [facility] Start: 07-30-2022 End: 07-30-2022 ambulatory Yaneth Toni Other [employer] Other Start: 07-30-2022 Office outpatient vi sit 25 minutes Yaneth Toni [facility] Start: 07-29-2022 End: 07-30-2022 ambulatory YANETH TONI Facility: Start: 07-16-2022 End: 07-16-2022 ambulatory DO Ming Espinoza Work Phone: [facility] [email or web address] Work Phone: Start: 07-16-2022 End: 07-16-2022 Patient encounter procedure DO Ming Espinoza Work Phone: [facility] Start: 07-03-2022 End: 07-03-2022 ambulatory Estefania Vo Other [employer] Other Start: 07-03-2022 Follow-up encounter [facility]ef[facility] Start: 06-20-2022 End: 06-20-2022 ambulatory Jesus Praham Other [employer] Other Start: 06-20-2022 Telephone encounter Jesus Macedo [facility] Start: 06-20-2022 End: 06-20-2022 Emergency department patient visit DO Ming Espinoza Work Phone: [facility] Start: 06-18-2022 End: 06-18-2022 Admission to same day surgery center DO Ming Espinoza Work Phone: [facility] [place] Start: 06-14-2022 End: 06-14-2022 Patient encounter procedure DO Ming Espinoza Work Phone: [facility] Start: 06-06-2022 End: 06-07-[address] BRINDA HINOJOSA Facility:[facility] Start: 06-05-2022 End: 06-05-2022 Patient encounter procedure DO Ming Espinoza Work Phone: [facility] Start: 06-03-2022 End: 06-03-2022 ambulatory Jesus Parham Other [employer] Other Start: 06-03-2022 Encounter for other preprocedural examination Jesus Dione [facility] Start: 06-03-2022 Telephone encounter Jesus Hellen adler [facility] Surgery Start: 05-30-2022 End: 05-30-2022 ambulatory Jesus Dione Other [employer] Other Start: 05-30-2022 [facility] visit new patient Jesus villarrealanna [facility] V[facility] Surgery Start: 05-30-2022 End: 05-30-2022 Patient encounter procedure DO Ming Espinoza Work Phone: [facility] Start: 05-29-[address] BLAKE HINOJOSA [facility] ity:H1 Start: 05-02-2022 End: 05-02-2022 ambulatory Yaneth Toni Other [employer] Other Start: 05-02-2022 Office outpatient vi sit 25 minutes Yaneth Toni [facility] Nephrology Start: 04-30-2022 End: 04-30-2022 ambulatory Dipika Stinson Other [employer] Other Start: 04-30-2022 Office outpatient vi sit 15 minutes Dipika Stinson [facility] Start: 04-30-2022 Encounter for preprocedural laboratory examination YANETH TONI [facility] Start: 04-29-2022 Encounter for other preprocedural examination DR DOCTOR ALEJANDRO [facility] Start: 04-27-2022 End: 04-28-2022 Encounter for other preprocedural examination DR MING ESPINOZA Facility:[facility] Start: 04-27-2022 End: 04-28-[address] MING ESPINOZA Facility:[facility] Start: 04-27-2022 End: 04-28-2022 Encounter for preprocedural laboratory examination YANETH MUÑOZ Facility:[facility] Start: 04-03-2022 Encounter for other specified special examinations DR DOCTOR ALEJANDRO [facility] Start: 04-01-2022 End: 04-01-2022 Admission to same day surgery center DO Ming Espinoza Work Phone: [facility] Start: 03-29-2022 End: 03-30-[address] DOCTOR ALEJANDRO Facility:[facility] Start: 03-29-2022 End: 03-30-2022 Encounter for other specified special examinations DR DOCTOR ALEJANDRO Facility:[facility] Start: 03-28-2022 End: 03-28-2022 Patient encounter procedure DO Ming Espinoza Work Phone: [facility] Start: 02-26-2022 End: 02-26-2022 ambulatory Shabbir Jones Other [employer] Other Start: 02-26-2022 Telephone encounter Shabbir VELAZQUEZ [employer] Start: 12-06-2021 End: 12-06-2021 ambulatory Yaneth Toni Other [employer] Other Start: 12-06-2021 Office outpatient vi sit 25 minutes Yanethraad Muñoz [facility] Start: 12-03-2021 End: 12-04-2021 ambulatory YANETH TONI Facility:[facility] Start: 09-01-2021 End: 09-02-[address] MING ESPINOZA Facility:[facility] Start: 08-02-2019 End: 08-02-2019 Emergency department patient visit [facility] Start: 08-02-2019 End: 08-02-2019 Emergency department patient visit Vidal Madrigal Work Phone: [facility] ED Comment on above: Acute sepsis (HCC) ( Primary Dx); Acute cystitis without hematuria; Chronic renal failure, stage 4 (severe) (HCC); Polycystic kidney disease Procedures Date Procedure Procedure Detail Performing Clinician Start: 07-16-2022 Screening mammograph y of bilateral breasts DO Ming [employer] Work Phone: Start: 06-18-2022 Arteriovenous fistulization DO Ming [employer] Work Phone: Start: 05-30-2022 Ultrasound (US) dopp ler flow mapping of vein of upper limb DO Ming ESKY Phone: Start: 04-01-2022 Screening colonoscopy D O Ming [employer] Work Phone: Start: 08-02-2019 Assay of lactate [...] stick/tabl et rgnt auto w/o microscopy Vidal Madrigal Work Phone: Start: 08-02-2019 Radiologic exam ches t single view Vidal Madrigal Work Phone: Start: 08-02-2019 Ct angiography chest w/contrast/noncontrast Vidal Madrigal Work Phone: Start: 08-02-2019 Assay of lipase Vidal lane Work Phone: Start: 08-02-2019 Assay of troponin quantitative Vidal Madrigal Work Phone: Start: 08-02-2019 Blood count complete auto&auto difrntl wbc Vidal Madrigal Work Phone: Start: 08-02-2019 Fibrin dgradj produc [...] Treatment Date Care Activity Detail Author Start: 03-16-2024 Bacteria identified in Urine by Culture [facility] Start: 03-15-2024 Bacteria identified in Urine by Culture [facility] Start: 11-06-2023 [facility] Start: 06-18-2022 [facility] Start: 06-18-2022 [facility] Start: 04-01-2022 [facility] Work Phone: Start: 06-06-2019 Influenza vaccination Flu vaccine (# 1) [place], [place] Start: 2015 Lipid screen Lipid screen [place], [place] Start: 1996 Cervical cancer screen Cervical canc er screen [place], [place] Start: 1994 DTaP/Tdap/Td vaccine (1 - Tdap) DTaP/Tdap/Td vaccine (1 - Tdap) [place], [place] Start: 1990 HIV screen HIV screen [place], [place] Start: 1975 Creatinine monitoring Creatinine mon itoring [place], [place] Start: 1975 Potassium monitoring Potassium monit oring [place] End: 08-02-2019 Bacteria identified Cx Nom (U) Urine Culture Microbiology STAT One Time for 1 Occurrences starting 08/02/2019 until 08/02/2019 [place] Comment on above: One Time for 1 Occur rences starting 08/02/2019 until 08/02/2019 Bacteria identified Cx Nom (U) Urine Culture Microbiology STAT 08/02/2019 1:00 PM EDT [place] End: 08-02-2019 Culture blood #1 Culture blood #1 Microbiology STAT One Time for 1 Occurrences starting 08/02/2019 until 08/02/2019 [place] Comment on above: One Time for 1 Occur rences starting 08/02/2019 until 08/02/2019 End: 08-02-2019 Culture blood #2 Culture blood #2 Microbiology STAT One Time for 1 Occurrences starting 08/02/2019 until 08/02/2019 [place] Comment on above: One Time for 1 Occur rences starting 08/02/2019 until 08/02/2019 EKG 12 Lead EKG 12 Lead ECG STAT 08/02/2019 12:25 PM EDT [place] Homogenous nuclear A b pattern [Titer] in Serum [facility] Initiate Oxygen Ther apy Protocol Initiate Oxygen Therapy Protocol Respiratory Care Routine Daily until discontinued starting 08/02/2019, 2 completed [place] Comment on above: Daily until disconti nued starting 08/02/2019, 2 completed End: 08-02-2019 Lactate, Sepsis Lactate, Sepsis Lab Timed Now Then Every 2hr for 2 Occurrences starting 08/02/2019 until 08/02/2019, 1 completed [place] Comment on above: Now Then Every 2hr f or 2 Occurrences starting 08/02/2019 until 08/02/2019, 1 completed Nuclear Ab [Titer] i n Serum [facility] Patient Education [facility] Work Phone: Patient referral [facility] Work Phone: Potassium [Moles/vol ume] in Serum or Plasma [facility] Work Phone: Immunizations Immunization Date Immunization Notes Care Provider Chirag summers 10-13-2021 COVID-19 Ad26.COV2.S ([employer]ident [employer]) DO Ming Espinoza Work Phone: [facility] Payers Date Payer Category Payer Unknown [employer] [address] xxxxxxxxx 2015-Present [phone] [address] [place] [address] xxxxxxxxx [id number] 1975 Unknown [id number] 1975 Unknown [id number] 1975 Unknown [id number] 1975 Unknown [id number] 1975 Unknown [id number] [id number] 1975 Unknown [id number] 1975 Unknown [id number] 1975 Unknown [id number] [id number] 1975 Unknown [id number] 1975 Unknown [id number] 9 1959 Self-pay [id number] 1959 Unknown [id number] 1959 Unknown [id number] Unknown [id number] Unknown [id number] Unknown [id number] Unknown [id number] Social History Date Type Detail Facility Tobacco smoking status NMIS Unknown if [place] [facility] Sex Assigned At Sex Assigned At [facility] th [employer] Other Start: 06-05-2022 End: 06-20-2022 Tobacco smoking status NHIS Never smoked tobacco (finding) [facility] Start: 1975 Sex Assigned At Female F [facility] Goals Date Patient Goal Desired Activity /State Clinical Notes 05-17-2020 to 03-16-2024 Note Date & Type Note Facility 03-16-2024 Note Patient called benigno borrero she is currently being treated for a UTI with bactrim BID for 7 days. [facility] 02-25-2024 Note Received a call from the patient regarding the non-compliant lab letter. Explained to the patient that we had gotten some labs on her but not a CMP or BMP. Patient stated that she has always gotten her labs drawn at [facility]. She will be getting labs drawn tomorrow and she will make sure that the draw the correct labs and have the results sent to us. [facility] 12-23-2023 Note 12/23/23 Chief Complaint Patient presents with Kidney Follow-up Pt has questions about her lab work. PCP: Ming Espinoza MD Txp Referring: Yaneth Muñoz [facility]: [facility] - [place], [place] - [address] [place] [place] [address] [place] [address] [facility] [address] [id number] - [place], [place] - [address] [facility] [address] [address] [facility] [address] [address] Subjective Visit Vitals BP 116/73 (BP Location: [...] Review Audit Reviewed by Trupti Sanchez MA (Bmet) on 12/23/23 at 1430 Medication Order Taking? Sig Documenting Provider Last Dose Status amLODIPine (Norvasc) 10 mg tablet [id number] Take 1 tablet (10 mg) by mouth in the morning. Aguila Parrish MD 10/24/23 2180 bumetanide (Bumex) 2 mg tablet [id number] Take 1 tablet (2 mg) by mouth in the morning. Patient not taking: Reported on 11/08/2022 Aguila Parrish MD 10/25/22 5545 docusate sodium (Colace) 100 mg capsule [id number] Take 1 capsule (100 mg) by mouth in the morning and at bedtime. Patient not taking: Reported on 09/01/2023 Paty Ansari, NORMA Active DULoxetine (Cymbalta) [address] capsule [id number] Yes Take 1 capsule every day by oral route. Historical ProviderMD Taking Active Envarsus XR 1 mg tablet ER [id number] Yes TAKE 3 TABLETS BY MOUTH ONCE DAILY IN THE MORNING. TAKE ALONG WITH 0.75 MG TABLETS DIRECTED FOR TOTAL DOSE UP TO 4.5 MG PER DAY. Patient taking differently: Take 2 mg by mouth in the morning. Aguila Parrish MD Taking Active famotidine (Pepcid) 20 mg tablet [id number] Yes Take 1 tablet (20 mg) by mouth in the morning. Patient taking differently: Take 20 mg by mouth if needed. Aguila Parrish MD Taking Active febuxostat (Uloric) 40 mg tablet [id number] Take 0.5 tablets every day by oral route. Historical ProviderMD Active ferrous sulfate 325 (65 Fe) MG tablet [id number] No Take 65 mg by mouth every other day. Historical ProviderMD Not Taking Active fish oil ([place]-3) 60-90-500 mg capsule [id number] No Take 2 capsules (1,000 mg) by mouth in the morning and at bedtime. Patient not taking: Reported on 12/23/2023 Sujit Bernal MD Not Taking Active Levemir FlexPen 100 unit/mL (3 mL) pen [id number] No INJECT 12 UNITS SUBCUTANEOUS IN AM 30 DAYS Historical ProviderMD Not Taking Flag for Review magnesium oxide (Mag-Ox) 400 mg (241.3 mg magnesium) tablet [id number] Yes TAKE 2 TABLETS BY MOUTH IN THE MORNING AND 2 TABLETS AT BEDTIME Nelson Davies MD Taking Active mycophenolate (Myfortic) 180 mg EC tablet [id number] Yes Take 4 tablets (720 mg) by mouth in the morning and at bedtime. Aguila Parrish MD Taking Active oxyCODONE-acetaminophen (Percocet) 5-325 mg tablet [id number] Take 1 tablet by mouth every 6 (six) hours if needed for severe pain (8-10 pain score) for up to 20 doses. Patient not taking: Reported on 09/01/2023 Paty Ansari NP Active potassium chloride CR (Klor-Con M20) 20 mEq ER tablet [id number] Yes Take 1 tablet (20 mEq) by mouth in the morning. Do not crush or chew. Andrea Elizondo MD Taking Active pravastatin (Pravachol) 40 mg tablet [id number] Yes Take 1 tablet (40 mg) by [...] (CMS/HCC) Encounter for aftercare following kidney transplant Immunosuppressed status (CMS/[facility]) Hyperuricemia Metabolic acidosis Bilateral lower extremity edema Hypokalemia Immunosuppressive management encounter following kidney transplant Dysuria Hypomagnesemia Electrolyte imbalance History of gout Myopathy, unspecified Dyslipidemia Hyperglycemia Family History Problem Relation Name Age of Onset Fibromyalgia Mother Heart disease Father Hypertension Sister Polycystic kidney disease Sister Hypertension Brother Polycystic kidney disease Brother Social History Tobacco Use Smoking status: Never Smokeless tobacco: Cara (more content not included)... [facility] 10-02-2023 Note Per phone order Tyler sorto MD, increase Kdur from 10meq every day to 20meq every day due to K 3.2 on 09/26/23. Pt informed and verbalized understanding. Amiloride removed from her MAR as she reported in July she is not taking and reconfirmed today. [facility] 09-01-2023 Note ---- Attestation signed by Sujit [...] making adequate urine output with no proteinuria. [place] kidneys with adult polycystic kidney disease BK [...] for dysphoric moo (more content not included)... [facility] 08-06-2023 Note For K-level of 3.4, left VM to start Kdur [address] Bernal po. [facility] 07-24-2023 Note Per phone order Minerva morel MD, discontinue amiloride due to side effects and recheck her CMP in 2 weeks as serum K may drop. This coordinator spoke with Ramila victor in lab to complete CMP today. DSA reentered for next lab draw. Pt notified by phone and verbalized understanding. [facility] 07-24-2023 Note PT reports not lindsay ating the Amiloride with daily watery diarrhea (no longer formed) x 1 since starting medication with nausea and indigestion/acid reflux aggravated at times even with water. Pt will complete FU CMP and hold this medication pending review with [place] transplant provider. Advised her DSA collection is due as well and she verbalized understanding. Denies fever, chills or being around persons known to be ill. [facility] 07-24-2023 Note Per Shelly x 7686 BM P specimen not available. Notified Dolores FIERRO by phone and per his phone order, will repeat this labs in 7-10 days and pt was notified by phone and she verbalized understanding. Pt needs copy of her standing lab order. Will prepare for her pickup. [facility] 07-17-2023 Note Reviewed todays labs in person with Guillermo FIERRO and per his verbal order, pt should stop the oral potassium daily dosing and resume the Amiloride 5mg every day dosing with FU labs in one week to check for elevation in potassium. Pt verbalized understanding by phone and her RV will be rescheduled before the end of the year with [place] transplant by clinic [facility] Mendez. Per Dolores FIERRO, the pt may discontinue her Prednisone 5mg every other day dosing and she acknowledged. Tac pending. [facility] 07-16-2023 Note Pt reports stopping Amiloride 5mg every day and starting Potassium 20meq every day & Ozempic 1mg subcutaneous weekly per PCP with improved glucose control. Monitors BP and no concerns. She will present to lab tomorrow for testing. Pt agrees and verbalized understanding. Pt to located her standing lab order for use @ [facility] prn. [facility] 07-16-2023 Note Reviewed by phone noreen Bernal MD pt input about her medication changes by PCP including stopping Amiloride. agreed to reschedule her 07/18 RV and review labs tomorrow by phone. Clinic [place] team informed to reschedule pt. [facility] 07-10-2023 Note Returned 0816 voicem ail to pt asking about dental work antibiotic prophylaxis. Confirmed with pt no allergies to antibiotics and advised to take Amoxicillin 2 grams PO 30-60 minutes prior to dental work or cleanings and she verbalized understanding. PT will contact her dentist for RX she stated. [facility] 06-17-2023 Note Returned patients ca ll regarding local pharmacy informing her of a DDI Recommended to patient to take Crestor in the evening and Magnesium during the day (or at least 2 hours apart) to avoid decreased absorption due to DDI Liam Viveros PharmD Candidate 2023 [facility] 06-15-2023 Note 06/15/23 1100 Pt called and said was out of myfortic, mail order did not arrive. Pt takes myfortic 720 twice a day. Pt chart reviewed and dose confirmed. Prescription called in to [facility] pharmacy. 5 days supply, 40 tablets. Myfortic 180 tablets, take 720 mg - 4 tablets, twice a day. Pt notified [facility] available [place] outpt pharm, open until 4 pm Friday. Pt verbalized understanding. [facility] 04-30-2023 Note Reviewed Tac Lvl 9.3 in [...] she is currently taking Envarsus 2 mg. [facility] 04-16-2023 Note Seen by Dolores FIERRO in clinic today, he states he gave the pt verbal instruction to reduce her Prednisone to 5mg every other day. [facility] 04-16-2023 Note Nephrology Transplan t Clinic Patient [...] back: Neck sup (more content not included)... [facility] 04-11-2023 Note Reviewed Mag K & cre atinine with Guillermo FIERRO and to start Amiloride 5mg every day due to low mag level 1.6. Pt notified and she verbalizes understanding. RV 04/16 [facility] 04-11-2023 Note Pt wishes to discuss Ozempic [...] 6 months post transplant and she agrees. 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 She takes Urolic and denies any recent gout flare Jul, Metabolic acidemia, unspecified (ICD-10 - P19.9) She has metabolic acidosis due to the advanced CKD. Continue oral Sodium Bicarbonate [facility] Other 09-28-2022 Evaluation note* Encounter Date Diagnosis [...] disease, unspecified CKD stage (ICD-10 - N18.9) [facility] Encounter Date Diagnosis Assessment Notes Treatment Notes Treatment Clinical Notes May, Pre-op testing (ICD-10 - Z01.818) [facility] Other 08-25-2022 Evaluation note* Encounter Date Diagnosis [...] will schedule this in the near future. [facility] Other 07-28-2022 Evaluation note* Encounter Date Diagnosis [...] explained to her the potential need of HIDE OR SKIN BUFFER in future. I discussed with her different options of HIDE OR SKIN BUFFER including PD, HTN renal transplant. I provide [...] stephens s gout and follows with a boat engine mechanic. She takes Urolic and denies any recent gout flare [facility] Other 07-26-2022 Evaluation note* Encounter Date Diagnosis [...] care provider if no improvement of symptoms. [facility] Other 05-24-2022 Evaluation note* Encounter Date Diagnosis Assessment Notes Treatment Notes Treatment Clinical Notes February, Screening for colon cancer (ICD-10 - Z12.11) [facility] Other 03-03-2022 Evaluation note* Encounter Date Diagnosis [...] explained to her the potential need of HIDE OR SKIN BUFFER in future. I discussed with her different options of HIDE OR SKIN BUFFER including PD, HTN renal transplant. I provide [...] She has gout and follows with a boat engine mechanic. She takes Urolic and denies any recent gout flare [facility] Other 06-25-2021 NotePatient Outreach (NEPHMN) MANDEEP PURI ([id number]) 1975 F Date Time Provider Department 03/30/21 PERRI BARRETT During your visit today, we recorded the following information about you: Allergies As of Date: 03/30/2021 Noted Allergy Reaction ALLOPURINOL 08/02/2019 4 - Hives Date Reviewed: 03/30/2021 Reviewed by: Perri Barrett MD - Fully Assessed Visit Diagnosis:Screening for genitourinary condition [Z13.89] Order(s):URINALYSIS, DIPSTICK ONLY [SQUA] Order #: [id number]. #:[id number] Prescriptions as of 03/30/2021 Sig: DULOXETINE 60 [...] dominant polycystic kidney dis*03/30/2021 Encounter Status:Closed by EPIC, PRODUSER on 04/02/21[facility] 03-30-2021 NoteHNO ID: [id number] Author: Perri Barrett MD Service: ? Author Type: Physician Type: Progress Notes Filed: 03/30/2021 10:25 AM Note Text: Mrs. 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 [facility] general Narrative - Reported * Type Description Date Medical History HTN (hypertension) Medical History Anxiety Medical History polycystic kidneys Medical History COVID 05-17-2020 Surgical History C section Surgical History BREAST REDUCTION Hospitalization History child Hospitalization History KIDNEY INFECTION 07/2019 Hospitalization History COVID AND DEHYDRATION [facility] Other 08-12-2020 History general Narrative - Reported* Type Description Date Medical History HTN (hypertension) Medical History Anxiety Medical History polycystic kidneys Medical History COVID 05-17-2020 Medical History end stage renal disease Surgical History C section Surgical History BREAST REDUCTION Surgical History colonoscopy 04/01/2022 Surgical History wisdom teeth 03/24/2022 Hospitalization History child Hospitalization History KIDNEY INFECTION 07/2019 Hospitalization History COVID AND DEHYDRATION [facility] Other 08-12-2020 History general Narrative - Reported* [...] INFECTION 07/2019 Hospitalization History COVID AND DEHYDRATION [facility] Other 08-12-2020 History general Narrative - Reported* [...] INFECTION 07/2019 Hospitalization History COVID AND DEHYDRATION [facility] [employer] Other Evaluation noteNo assessment information available [facility] Work Phone: Evaluation noteNo InformationNortWell[facility] [employer] [facility] Other Evaluation note* Diagnosis Onset Date Resolution Status Dysuria acute UTI (urinary tract infection) acute [facility] Work Phone: Assessments Diagnosis Acute sepsis (HCC)- Primary Acute cystitis without hematuria Acute cystitis Chronic renal failure, stage 4 (severe) (HCC) Polycystic kidney disease Polycystic kidney, unspecified type Advance Directives No Advanced Directives Records FoundDocuments on File Type Date Recorded 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 Advance Directives and Living Will Power of Brake Machine Operator Advance Directive Response Recorded Date/ Time [...] kidney disease Unknown Not Specified Fibromyalgia Unknown Relationship Condition Age at Onset Recorded Date/T citlaly family member End-stage renal disease Unknown grandparent Diabetes mellitus Unknown sister Diabetes mellitus Unknown Polycystic kidney disease Unknown Rheumatoid arthritis Unknown Fibromyalgia Unknown father Myocardial infarction Unknown brother Polycystic kidney disease Unknown Not Specified Fibromyalgia Unknown brother Hypertension Unknown father Heart disease Unknown Unknown sister Hypertension Unknown Chief Complaint and Reason for Visit Chief Complaint Screening Screening z01.818 ESRD Chief Complaint Screening Screening z01.818 ESRD ESRD Chief Complaint Screening Screening z01.818 ESRD ESRD ESRD Chief Complaint z01.818 ESRD ESRD ESRD left arm pain Z12.31 Chief Complaint Poss UTI Dysuria Reason for Visit Dysuria UTI (urinary tract infection) Additional Source Comments Reason for Visit (unrecogniz ed section and content) Reason Comments Chest Pain was seen at her PCP today and was told her urine has e.coli in it; CP started about 20-30 minutes ago Back Pain INFORMATION SOURCE (unrecogn ized section and content) DATE CREATED AUTHOR 08/04/2019 [facility] DATE CREATED AUTHOR AUTHOR'S ORGANIZ ATION 04/28/2020 Hari Melchor [facility] DATE CREATED AUTHOR AUTHOR'S ORGANIZ ATION 09/12/2020 [facility] DATE CREATED AUTHOR AUTHOR'S ORGANIZ ATION 11/07/2021 [facility] DATE CREATED AUTHOR AUTHOR'S ORGANIZ ATION 02/27/2022 [facility] DATE CREATED AUTHOR AUTHOR'S ORGANIZ ATION 08/04/2022 [facility] DATE CREATED AUTHOR AUTHOR'S ORGANIZ ATION 10/14/2023 [facility] DATE CREATED AUTHOR AUTHOR'S ORGANIZ ATION 03/17/2024 [facility] DATE CREATED AUTHOR AUTHOR'S ORGANIZ ATION 03/19/2024 [facility] Care Teams (unrecognized sec tion and content) [...] Espinoza DO Primary Care Provider Active Blake Hinojosa DO Attending Provider Active Team Status: Inactive Member Role Status Dates Ming Espinoza DO Primary Care Provider Active Start: November 06, 2023 End: November 06, 2023 Perri Ceja MD Attending Provider Active St art: November 06, 2023 End: November 06, 2023 Team Status: Inactive Member Role Status Dates Ming Espinoza DO Primary Care Provider Active Start: March 15, 2024 End: March 15, 2024 Andreia Edwards APRN Attending Provider Active S tart: March 15, 2024 End: March 15, 2024 Team Status: Inactive Member Role Status Dates Andreia Edwards APRN Attending Provider Active S tart: March 15, 2024 End: March 15, 2024 Goals (unrecognized section and content) Goals may [...] BE BASED ON THE PRIMARY CLINICAL RECORDS. [employer] provides no warranty or guarantee of the accuracy or completeness of information in this document.
--- NOTE | 2024-03-22 01:17 | ED.GENADUL1 ---
HPI HPI - General Adult General Chief complaint: Urogenital-Female Stated complaint: DIZZINESS UTI Time Seen by Provider: 03/22/24 01:01 Source: patient Mode of arrival: walk-in History of Present Illness HPI narrative: 48-year-old female to the emergency department chief complaint of dysuria, urgency, frequency. Patient reports the symptoms been ongoing for the last week. She was seen at [facility] urgent care 7 days ago and was diagnosed with a urinary tract infection. She was started on Bactrim. She has been taking this as prescribed. Patient reports that over the last 48 hours her symptoms have worsened she has developed malaise, subjective fever, chills, sweats. She reports that she is also had some sinus pressure and nasal discharge. She is unsure if she has upper respiratory infection or if her UTI is not improving. She has a history of kidney transplant secondary to polycystic kidney disease. She follows at [facility] for this. Related Data Home Medications ?Medication ?Instructions ?Recorded ?Confirmed amlodipine 10 mg tablet 20 mg PO DAILY 03/22/24 03/22/24 duloxetine 60 mg capsule,delayed 60 mg PO DAILY 03/22/24 03/22/24 release magnesium oxide 400 mg (241.3 mg 400 mg PO BID 03/22/24 03/22/24 magnesium) tablet mycophenolate sodium 180 mg 720 mg PO Q12H 03/22/24 03/22/24 tablet,delayed release potassium chloride 20 mEq 20 meq PO DAILY 03/22/24 03/22/24 tablet,extended release(part/cryst) (Klor-Con M) pravastatin 40 mg tablet 40 mg PO .three times a week 03/22/24 03/22/24 tacrolimus 1 mg tablet,extended 1 mg PO DAILY 03/22/24 03/22/24 release 24 hr (Envarsus XR) Previous Rx's ?Medication ?Instructions ?Recorded cephalexin 500 mg capsule 500 mg PO Q6H 7 days #28 caps 03/22/24 Allergies Allergy/AdvReac Type Severity Reaction Status Date / Time allopurinol Allergy Mild Hives Verified 03/22/24 00:56 venlafaxine [From Effexor] Allergy Mild Hives Verified 03/22/24 00:56 Opioid HPI Opioid Management Most Recent Opioid Data: No Data to Display Review of Systems ROS Status of ROS 10 or more systems reviewed and unremarkable except as noted in history and below [facility] Medical History (Updated 03/22/24 @ 02:18 by Kai Rosales MD) High cholesterol ?E78.00 - Pure hypercholesterolemia, unspecified (ICD-10) Hypertension ?I10 - Essential (primary) hypertension (ICD-10) Surgical History (Updated 03/22/24 @ 01:10 by Ankush Brambila) Kidney transplant recipient ?Z94.0 - Kidney transplant status (ICD-10) Exam Narrative Exam Narrative: VITALS: I have reviewed the triage vital signs. GENERAL: Well developed, well appearing adult in no acute distress. NEURO: Alert and oriented. Moves all extremities. Face is symmetric and expressive. EYES: PERRL. No scleral icterus or conjunctival injection. No discharge. HENT: Normocephalic, atraumatic. Hearing is grossly intact. Nares grossly patent and without discharge. Mucous membranes moist. NECK: No JVD. Patient moves neck without restriction. CARDIO: Rhythm regular. Normal rate. No murmur, rub, or gallop. Pulses equal bilaterally in the upper and lower extremity. No lower extremity edema. PULM: Lungs clear to auscultation in all larson. No wheezes, rales, or rhonchi. No conversational dyspnea. No splinting, stridor, or accessory muscle use. GI/: Abdomen is soft and non-tender. Normoactive bowel sounds. EXTREMITIES: Symmetric muscle bulk. No joint swelling. No clubbing, cyanosis, or deformity. SKIN: Warm and dry. Normal turgor. No rash or lesions appreciated. PSYCH: Anxious Constitutional Vital Signs, click to edit/add: Last Vital Signs Temp 97.9 F 03/22/24 00:50 Pulse 100 H 03/22/24 00:50 Resp 20 03/22/24 00:50 BP 130/73 03/22/24 00:50 Pulse Ox 100 03/22/24 00:50 O2 Del Method Room Air 03/22/24 00:50 Course Vital Signs Vital signs: Vital Signs Temperature 97.9 F 03/22/24 00:50 Pulse Rate 100 H 03/22/24 00:50 Respiratory Rate 20 03/22/24 00:50 Blood Pressure 130/73 03/22/24 00:50 Pulse Oximetry 100 03/22/24 00:50 Oxygen Delivery Method Room Air 03/22/24 00:50 Temperature 97.9 F 03/22/24 00:50 Pulse Rate 100 H 03/22/24 00:50 Respiratory Rate 20 03/22/24 00:50 Blood Pressure 130/73 03/22/24 00:50 Pulse Oximetry 100 03/22/24 00:50 Oxygen Delivery Method Room Air 03/22/24 00:50 Medical Decision Making MDM Narrative Medical decision making narrative: Well-appearing 48-year-old female to the emergency department with chief complaint of flulike illness in the setting of recent URI on Bactrim. Vital stable, the patient is afebrile. Given her immunocompromise status I believe she is best served by labs, check her renal function, blood cultures. She does not meet SIRS criteria. I was able to review her 03/15/24 urine culture via [employer]. She grew greater than 100,000 colony-forming units of E. coli, multidrug resistant. Of particular interest the culture was resistant to Bactrim. I discussed with the patient, she has not received a phone call from [employer] about this. Will give the patient a dose of Rocephin here while awaiting lab results. CBC is unremarkable. Chemistry with mild hyponatremia and hypokalemia. Her creatinine is slightly above her baseline but not meeting the definition of an JONNY. Urinalysis remains positive for infection with moderate bacteria and leukocyte esterase. No casts to suggest renal damage. Findings were discussed with the patient. She is ordered potassium supplementation. She received IV fluids. Discussed follow-up with her PCP, she already has an appointment on Friday. Discussed need for repeat labs to ensure that her kidney function and electrolytes have returned to normal levels. Discussed discontinuation of Bactrim. She will start Keflex based on sensitivities of previous culture. Return precautions were discussed. All questions were answered. The patient was discharged home. Medical Records Medical records reviewed: Yes I reviewed the patient's medical records Lab Data Lab results reviewed: Yes I reviewed the patient's lab results Labs: Lab Results 03/22/24 03/22/24 Range/Units 01:05 01:20 WBC 8.2 (4.0-11.0) 10^3/uL RBC 3.64 L (4.20-5.40) 10^6/uL Hgb 10.0 L (12.0-16.0) g/dL Hct 30.8 L (36.0-48.0) % MCV 84.6 (81.0-99.0) fL MCH 27.5 (26.7-34.0) pg MCHC 32.5 (29.9-35.2) g/dL RDW 15.3 H (11.0-15.0) % Plt Count 268 (150-450) 10^3/uL MPV 8.9 L (9.5-13.5) fL Neut % (Auto) 76.2 H (43.0-75.0) % Lymph % (Auto) 11.7 L (20.5-60.0) % [facility] % (Auto) 10.0 (1.7-12.0) % Eos % (Auto) 1.1 (0.9-7.0) % Baso % (Auto) 0.4 (0.2-2.0) % Neut # (Auto) 6.3 (1.4-6.5) 10^3/uL Lymph # (Auto) 1.0 L (1.2-3.8) 10^3/uL [facility] # (Auto) 0.8 (0.3-0.8) 10^3/uL Eos # (Auto) 0.1 (0.0-0.7) 10^3/uL Baso # (Auto) 0.0 (0.0-0.1) 10^3/uL Abs Immat Gran (auto) 0.05 H (0.00-0.03) 10^3/uL Imm/Tot Granulo (auto) 0.6 H (0.0-0.5) % Sodium 131 L (136-145) mmol/L Potassium 3.1 L (3.5-5.1) mmol/L Chloride 100 (98-107) mmol/L Carbon Dioxide 21.7 (21.0-32.0) mmol/L Anion Gap 12.4 BUN 13.0 (7.0-18.0) mg/dL Creatinine 1.44 H (0.55-1.02) mg/dL Est GFR ( Amer) 47 L (>=60) Est GFR (Non-Af Amer) 39 L (>=60) BUN/Creatinine Ratio 9.0 Glucose 135 H (74-106) mg/dL Lactate 0.9 (0.4-2.0) mmol/L Calcium 9.6 (8.5-10.1) mg/dL Urine Color Lt. yellow (YELLOW) Urine Clarity Clear (CLEAR) Urine pH 6.5 (5.0-9.0) Ur Specific Bloomer <=1.005 A (1.005-1.025) Urine Protein Negative (NEG/TRACE) mg/dL Urine Glucose (UA) Negative (NEGATIVE) mg/dL Urine Ketones Negative (NEGATIVE) mg/dL Urine Occult Blood Large A (NEGATIVE) Urine Nitrite Negative (NEGATIVE) Urine Bilirubin Negative (NEGATIVE) Urine Urobilinogen 0.2 (0.2-1.0) EU/dL Ur Leukocyte Esterase Large A (NEGATIVE) Urine RBC 2-5 A (0-2) #/HPF Urine WBC 10-20 A (NONE SEEN) #/HPF Ur Squamous Epith Cells Few A (NONE/RARE) #/LPF Ur Transition Epith Cell Few A (NONE SEEN) #/LPF Urine Crystals None seen (None Seen) #/HPF Urine Bacteria Moderate A (NONE SEEN) #/HPF Urine Casts None seen (NONE SEEN) #/LPF Urine Mucus None seen (NONE SEEN) Ur Culture Indicated? Yes Discharge Plan Discharge Stand Alone Forms: Portal Instructions Chief Complaint: Urogenital-Female Clinical Impression: Urinary tract infection, Acute hypokalemia Patient Disposition: Home, Self-Care Time of Disposition Decision: 02:12 Condition: Good Mode of Transportation: Private Vehicle Prescriptions / Home Meds: New cephalexin 500 mg capsule 500 mg PO Q6H 7 Days Qty: 28 0RF No Action Envarsus XR 1 mg tablet extended release 24 hr 1 mg PO DAILY amlodipine 10 mg tablet 20 mg PO DAILY mycophenolate sodium 180 mg tablet,delayed release (DR/EC) 720 mg PO Q12H magnesium oxide 400 mg (241.3 mg magnesium) tablet 400 mg PO BID potassium chloride [Klor-Con M20] 20 mEq tablet,ER particles/crystals 20 meq PO DAILY Hold Instructions: Doctor's Order duloxetine 60 mg capsule,delayed release(DR/EC) 60 mg PO DAILY pravastatin 40 mg tablet 40 mg PO .three times a week Print Language: Pashto Instructions: Urinary Tract Infection in Women (ED) Additional Instructions: Call the office of your primary care doctor to arrange for follow-up within the above-stated timeframe. Follow-up with your primary care doctor about this ED visit. You should review your labs, imaging, and diagnoses from this ED visit with your primary care physician. There may be non-emergent findings that need further evaluation. If you were prescribed medications you should discuss possible side-effects and drug interactions with your pharmacist. Call 911 or go to the nearest Emergency Department if you develop any new or worsening symptoms. Seek immediate medical attention if you develop: worsening abdominal pain, new or worsening nausea, new or worsening vomiting, new or worsening diarrhea, chest pain, shortness of breath, pain with urination, problems urinating, fever, chills, weakness, or any new or worsening symptoms. Obtain repeat labs in the next week to ensure that your sodium, potassium and creatinine levels have normalized. Stop taking Bactrim. Referrals: DAVE ESPINOZA [Primary Care Provider] - 1 week
[2024-03-22] MEDS: 0.9 % SODIUM CHLORIDE 1,000 ML 999 ML IV (01:33)
[2024-03-22] MEDS: CEFTRIAXONE 1,000 MG in 0.9 % SODIUM CHLORIDE 50 ML 100 MG IV (01:34)
[2024-03-22 01:42] LABS: Basophils Percent Auto 0.4 % (0.2-2.0); Eosinophils Absolute Auto 0.1 10^3/uL (0.0-0.7); Eosinophils Percent Auto 1.1 % (0.9-7.0); Hematocrit 30.8 % (36.0-48.0); Immature Granulocytes Abs Auto 0.05 10^3/uL (0.00-0.03); Immature Granulocytes Pct Auto 0.6 % (0.0-0.5); Lymphocytes Percent Auto 11.7 % (20.5-60.0); Mean Corpuscular HGB Conc 32.5 g/dL (29.9-35.2); Mean Corpuscular Hemoglobin 27.5 pg (26.7-34.0); Mean Corpuscular Volume 84.6 fL (81.0-99.0); Mean Platelet Volume 8.9 fL (9.5-13.5); Monocytes Absolute Auto 0.8 10^3/uL (0.3-0.8); Neutrophils Absolute Auto 6.3 10^3/uL (1.4-6.5); Neutrophils Percent Auto 76.2 % (43.0-75.0); Platelet Count 268 10^3/uL (150-450); Red Blood Count 3.64 10^6/uL (4.20-5.40); Red Cell Distribution Width 15.3 % (11.0-15.0); White Blood Count 8.2 10^3/uL (4.0-11.0)
[2024-03-22 01:43] LABS: Bilirubin Urine NEGATIVE (NEGATIVE); Blood Urine LARGE (NEGATIVE); Clarity Urine CLEAR (CLEAR); Color Urine LT. YELLOW (YELLOW); Glucose Urine UA NEGATIVE (NEGATIVE); Ketones Urine NEGATIVE (NEGATIVE); Leukocyte Esterase Urine LARGE (NEGATIVE); Nitrite Urine NEGATIVE (NEGATIVE); Protein Urine NEGATIVE (NEG/TRACE); Specific Gravity Urine <=1.005 (1.005-1.025); Urobilinogen Urine 0.2 EU/dL (0.2-1.0); pH Urine 6.5 (5.0-9.0)
[2024-03-22 01:49] LABS: Bacteria Urine MODERATE #/HPF (NONE SEEN); Cast Seen? NONE SEEN #/LPF (NONE SEEN); Crystals Seen? None Seen #/HPF (None Seen); Mucus Urine NONE SEEN (NONE SEEN); Squamous Epithelial Cell Urine FEW #/LPF (NONE/RARE); Transitional Epi Cells Urine FEW #/LPF (NONE SEEN); Urine Culture Indicated YES
[2024-03-22 01:51] LABS: Anion Gap 12.4; Calcium 9.6 mg/dL (8.5-10.1); Carbon Dioxide 21.7 mmol/L (21.0-32.0); Chloride 100 mmol/L (98-107); Estimated GFR (African America 47 (>=60); Estimated GFR (Non-African Ame 39 (>=60); Glucose 135 mg/dL (74-106); Potassium 3.1 mmol/L (3.5-5.1); Sodium 131 mmol/L (136-145)
[2024-03-22 02:00] LABS: Lactate/Lactic Acid 0.9 mmol/L (0.4-2.0)
[2024-03-22] MEDS: POTASSIUM CHLORIDE 10 MEQ ER TABLET 40 MEQ PO (02:18)
== END 2024-03-22 02:30 | disposition home or self-care (01) ==
PROVIDERS: Emergency Provider Student in an Organized Health Care Education/Training Program; PCP Internal Medicine
DX: N39.0 Urinary tract infection, site not specified (principal); E87.6 Hypokalemia
CPT/HCPCS: 36415; 80048; 81001; 83605; 85025; 87040; 87086; 87150; 87186; 96365; 99284; J0696

== ENCOUNTER 2024-04-02 07:21 | Outpatient (OUT) | payer OTHER, SELFPAY ==
--- OUTSIDE RECORDS SUMMARY | 2024-04-02 07:26 | XMS_ITS ---
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 Name Role Phone Ming Espinoza Primary Care Provider VIDAL MADRIGAL Attending Unavailable MING ESPINOZA Primary Care Unavailable Toni, Yaneth Unavailable Shabbir Jones Unavailable Dipika Stinson Unavailable Jesus Parham Unavailable DO Ming Espinoza Primary Care Provider MD Shabbir Jones Attending Provider MD Yaneth Muñoz Attending Provider MD Jesus Parham Attending Provider Estefania Vo Unavailable DO Ming Espinoza Primary Care Provider EB Forman Emergency Provider [phone] DO Blake Hinojosa Attending Provider [phone] JAVON, DR ZARAGOZA Admitting Unavailable DR MING ESPINOZA Primary Care Unavailable JAVON, DR ZARAGOZA Attending Unavailable MISC, DR ZARAGOZA Consulting Unavailable TONI, YANETH Admitting Unavailable DR MING ESPINOZA Primary Care Unavailable ALEXIS, DR ACOSTA Consulting Unavailable TONI, YANETH Attending Unavailable TONI, [...] YANETH Attending Unavailable TONI, YANETH Consulting Unavailable DO Ming Espinoza Primary Care Provider MD Perri Ceja Attending Provider CECILIA Edwards Attending Provider [phone] Self, Referral Admitting Unavailable Self, Referral Attending Unavailable Ming Espinoza Primary Care Unavailable Blake Hinojosa Referring Unavailable Perri Ceja Admitting Unavailable Perri Ceja Attending Unavailable Ming Espinoza Primary Care Unavailable Andreia Edwards Admitting Unavailable Andreia Edwards Attending Unavailable MING ESPINOZA Attending Unavailable MING ESPINOZA Referring Unavailable MING ESPINOZA Referring Unavailable CARLOS ENRIQUE RICHARD Attending Unavailable MING ESPINOZA Attending Unavailable SUJIT BERNAL Attending Unavailable MUNIRA PHAN Attending Unavailable Allergies Allergy Classification Reported Allergen(s) Allergy Type Date of Onset Reaction(s) Facility (13 sources) Allopurinol; Translations: [ALLOPURINOL] Drug Allergy 9 [place], [place] (8 sources) venlafaxine; Translations: [venlafaxine] Drug Allergy 2 Rash, Rash, [facility] (1 source) Allopurinol Drug Allergy 4 [facility] Repository (1 source) venlafaxine; Translations: [VENLAFAXINE HCL] Drug Allergy 1 [facility] Repository Encounters Encounter Date Encounter Type Care Provider Facility Start: 03-23-2024 End: 03-23-2024 ambulatory MING ESPINOZA Not Available Start: 03-15-2024 End: 03-15-2024 ambulatory Andreia Edwards [facility] Work Phone: Start: 03-15-2024 End: 03-15-2024 Departed Referred MAITRE D'Roxy Edwards Work Phone: [facility]-Lab [place] Work Phone: Start: 03-15-2024 End: 03-15-2024 Patient encounter procedure MAITRE D' Andreia Edwards Work Phone: [facility] Work Phone: Start: 12-23-2023 End: 12-23-2023 ambulatory MUNIRA PHAN [facility] Start: 12-01-2023 End: 12-01-2023 ambulatory MING ESPINOZA Not Available Start: 11-06-2023 End: 11-06-2023 Patient encounter procedure DO Ming Espinoza Work Phone: [facility]-Lab [address] Work Phone: Start: 11-06-2023 End: 11-06-2023 ambulatory DO Ming Espinoza Work Phone: [facility] Work Phone: Start: 10-13-2023 End: 10-13-2023 ambulatory MING ESPINOZA Not Available Start: 09-01-2023 End: 09-01-2023 ambulatory [facility] Start: 08-26-2023 [facility] Start: 07-30-2023 End: 07-30-2023 ambulatory Referral Self Facility:[facility] Start: 06-28-2023 ambulatory [facility]IT [facility]: [facility] Start: 04-30-2023 ambulatory SUJIT [facility] Start: 04-16-2023 End: 04-16-2023 ambulatory [facility] Start: 03-31-2023 ambulatory [facility] Start: 03-31-2023 Encounter for other preprocedural examination [facility] Start: 07-30-2022 End: 07-30-2022 ambulatory Yaneth Toni Other [employer] Other Start: 07-30-2022 Office outpatient vi sit 25 minutes Yaneth Toni [facility] Start: 07-29-2022 End: 07-30-2022 ambulatory YANETH TONI Facility: Start: 07-16-2022 End: 07-16-2022 ambulatory DO Ming Espinoza Work Phone: [facility] [employer] Work Phone: Start: 07-16-2022 End: 07-16-2022 Patient encounter procedure DO Ming Espinoza Work Phone: [facility] Start: 07-03-2022 End: 07-03-2022 ambulatory Estefania Vo Other [employer] Other Start: 07-03-2022 Follow-up encounter Estefania Vo [facility] V[facility] Surgery Start: 06-20-2022 End: 06-20-2022 ambulatory Jesus Parham Other [employer] Other Start: 06-20-2022 Telephone encounter Jesus Macedo [facility] Start: 06-20-2022 End: 06-20-2022 Emergency department patient visit DO Ming Espinoza Work Phone: [facility]-Emergency Room Start: 06-18-2022 End: 06-18-2022 Admission to same day surgery center DO Ming Espinoza Work Phone: [facility]Surgery [facility] [place] Start: 06-14-2022 End: 06-14-2022 Patient encounter procedure DO Ming Espinoza Work Phone: [facility] Start: 06-06-2022 End: 06-07-[address] BRINDA HINOJOSA Facility:[facility]1 Start: 06-05-2022 End: 06-05-2022 Patient encounter procedure DO Ming Espinoza Work Phone: [facility]-Pre-Surgical Testing Start: 06-03-2022 End: 06-03-2022 ambulatory Jesus Parham Other [employer] Other Start: 06-03-2022 Encounter for other preprocedural examination Jesus Dione [facility] Vascular Surgery Start: 06-03-2022 Telephone encounter Jesus Hellen adler [facility] Vascular Surgery Start: 05-30-2022 End: 05-30-2022 ambulatory Jesus Dione Other [employer] Other Start: 05-30-2022 [facility] visit new patient Jesus Montanez chalo [facility] Vascular Surgery Start: 05-30-2022 End: 05-30-2022 Patient encounter procedure DO Ming Espinoza Work Phone: [facility]-Ultrasound [facility] Start: 05-29-[address] [facility] ity:H1 Start: 05-02-2022 End: 05-02-2022 ambulatory Yaneth Toni Other [employer] Other Start: 05-02-2022 Office outpatient vi sit 25 minutes Yaneth Toni [facility] Start: 04-30-2022 End: 04-30-2022 ambulatory Dipika Stinson Other [employer] Other Start: 04-30-2022 Office outpatient vi sit 15 minutes Dipika Stinson [facility] Start: 04-30-2022 Encounter for preprocedural laboratory examination YANETH TONI [facility] Start: 04-29-2022 Encounter for other preprocedural examination DR DOCTOR ALEJANDRO [facility] Start: 04-27-2022 End: 04-28-2022 Encounter for other preprocedural examination DR MING ESPINOZA Facility:[facility]1 Start: 04-27-2022 End: 04-28-[address] MING ESPINOZA Facility:[facility] Start: 04-27-2022 End: 04-28-2022 Encounter for preprocedural laboratory examination YANETH MUÑOZ Facility:[facility] Start: 04-03-2022 Encounter for other specified special examinations DR DOCTOR ALEJANDRO [facility] Start: 04-01-2022 End: 04-01-2022 Admission to same day surgery center DO Ming Espinoza Work Phone: [facility] Start: 03-29-2022 End: 03-30-[address] DOCTOR ALEJANDRO Facility:[facility]1 Start: 03-29-2022 End: 03-30-2022 Encounter for other specified special examinations DR DOCTOR ALEJANDRO Facility:[facility]1 Start: 03-28-2022 End: 03-28-2022 Patient encounter procedure DO Ming Espinoza Work Phone: [facility]-Pre-Surgical Testing Start: 02-26-2022 End: 02-26-2022 ambulatory Shabbir Jones Other [employer] Other Start: 02-26-2022 Telephone encounter Shabbir VELAZQUEZ [employer] Start: 12-06-2021 End: 12-06-2021 ambulatory Yaneth Toni Other [employer] Other Start: 12-06-2021 Office outpatient vi sit 25 minutes Yaneth Muñoz [facility] Start: 12-03-2021 End: 12-04-2021 ambulatory YANETH MUOÑZ Facility:[facility]1 Start: 09-01-2021 End: 09-02-[address] MING ESPINOZA Facility:[facility]1 Start: 08-02-2019 End: 08-02-2019 Emergency department patient visit [facility] Start: 08-02-2019 End: 08-02-2019 Emergency department patient visit Vidal Madrigal Work Phone: [facility] ED Comment on above: Acute sepsis (HCC) ( Primary Dx); Acute cystitis without hematuria; Chronic renal failure, stage 4 (severe) (HCC); Polycystic kidney disease Goals Date Patient Goal Desired Activity /State Immunizations Immunization Date Immunization Notes Care Provider Chirag summers 10-13-2021 COVID-19 Ad26.COV2.S (Mashery) DO Ming Espinoza Work Phone: [facility] Medications Current Medications Medication Drug Class(es) Dates [...] acid 7540 MG / polyethylene glycol 3350 20521 MG / potassium chloride 1200 MG / sodium ascorbate 59538 MG / sodium chloride 3200 MG Powder for Oral Solution) / 1 (polyethylene glycol 3350 795287 MG / potassium chloride 1000 MG / sodium chloride 2000 MG / sodium sulfate 9000 MG Powder for Oral Solution) } Pack [Plenvu] (1 source) Osmotic Laxative, Vitamin C Start: 02-26-2022 Plenvu 140 GM dose 1 pouch at 4pm, dose 2 pouch A & B at 11pm Orally twice a day for 1 days BIN:[id number] PCN: [id number] GROUP:[id number] ID:[id number] February, Active cetirizine hydrochloride 10 mg oral tablet (10 sources) Histamine-1 Receptor Antagonist Start: 03-15-2024 take 1 tablet by mouth once daily as needed Cetirizine (Zyrtec) 10 mg tablet Active 10 MG PO Daily March 15, 2024 12:00am [employer] tablet as needed Orally Once a day; Note: Source Status: Taking; Provider: Delma Whitney ( ) take 1 tablet by denys once daily as needed ZyrTEC Allergy 10 [...] 324 MG PO Twice daily 60 August 05, 2019 12:00am April 01, 2022 [...] chloride 9 mg/ml injection (4 sources) Start: 9 sodium chloride flush 0.9 % injection 10 [...] Start: 08-02-2019 take 2 tablets by mo uth once daily Acetaminophen (Tylenol Extra Strength) 500 mg Tablet Active 1000 MG PO Daily August 02, 2019 12:00am calcitriol 0.12083 mg oral capsule (6 sources) Vitamin D3 [...] D2 Compound Start: 01-20-2019 End: 08-02-2019 take 74378 [IU] by mouth every month Ergocalciferol (Vitamin D2) Discontinued 49226 UNIT PO every month 12 January 20, 2019 12:00am August 02, [...] 01, 2022 12:00am March 15, 2024 5:37pm Payers Date Payer Category Payer Unknown [employer] [address] [phone] 2015-Present [phone] [address] [place] [address] xxxxxxxxx [id number] 1975 Unknown [id number] [id number] 1975 Unknown [id number] 2.16.840.1.671118.3.579.2.593 1975 Unknown [id number] 2.16.840.1.822658.3.579.2.593 1975 Unknown [id number] 2.16.840.1.452637.3.579.2.593 1975 Unknown [id number] 2.16.840.1.334513.3.579.2.593 1975 Unknown [id number] 2.16.840.1.963548.3.579.2.593 1975 Unknown [id number] 2.16.840.1.442600.3.579.2.593 1975 Unknown [id number] 2.16.840.1.368402.3.579.2.593 1975 Unknown [id number] 2.16.840.1.806762.3.579.2.593 1975 Unknown [id number] 2.16.840.1.379233.3.579.2.125 9 1975 Unknown [id number] 2.16.840.1.873084.3.579.2.125 9 1975 Unknown [id number] 2.16.840.1.431190.3.579.2.125 9 1959 Self-pay [id number] 1959 Unknown [id number] 1959 Unknown [id number] [id number] Unknown [id number] 2.16.840.1.124568.19 Unknown [id number] 2.16.840.1.188517.3.579.2.531 Unknown [id number] 2.16.840.1.196874.3.579.2.531 Unknown [id number] [id number] Plan of Treatment Date Care Activity Detail Author Start: 03-16-2024 Bacteria identified in Urine by Culture [facility] Start: 03-15-2024 Bacteria identified in Urine by Culture [facility] Start: 11-06-2023 [facility] Start: 06-18-2022 [facility] Start: 06-18-2022 [facility] Start: 04-01-2022 [facility] Work Phone: Start: 06-06-2019 Influenza vaccination Flu vaccine (# 1) [place], [place] Start: 2015 Lipid screen Lipid screen [place], [place] Start: 1996 Cervical cancer screen Cervical canc er screen [place], [place] Start: 1994 DTaP/Tdap/Td vaccine (1 - Tdap) DTaP/Tdap/Td vaccine (1 - Tdap) [place], [place] Start: 1990 HIV screen HIV screen [place], [place] Start: 1975 Creatinine monitoring Creatinine mon [place], [place] Start: 1975 Potassium monitoring Potassium monit [place], [place] End: 08-02-2019 Bacteria identified Cx Nom (U) Urine Culture Microbiology STAT One Time for 1 Occurrences starting 08/02/2019 until 08/02/2019 [place], [place] Comment on above: One Time for 1 Occur rences starting 08/02/2019 until 08/02/2019 Bacteria identified Cx Nom (U) Urine Culture Microbiology STAT 08/02/2019 1:00 PM EDT [place] End: 08-02-2019 Culture blood #1 Culture blood #1 Microbiology STAT One Time for 1 Occurrences starting 08/02/2019 until 08/02/2019 [place] Comment on above: One Time for 1 Occur rences starting 08/02/2019 until 08/02/2019 End: 08-02-2019 Culture blood #2 Culture blood #2 Microbiology STAT One Time for 1 Occurrences starting 08/02/2019 until 08/02/2019 [place] Comment on above: One Time for 1 Occur rences starting 08/02/2019 until 08/02/2019 EKG 12 Lead EKG 12 Lead ECG STAT 08/02/2019 12:25 PM EDT [place], [place] Homogenous nuclear A b pattern [Titer] in Serum [facility] Initiate Oxygen Ther apy Protocol Initiate Oxygen Therapy Protocol Respiratory Care Routine Daily until discontinued starting 08/02/2019, 2 completed [place], [place] Comment on above: Daily until disconti nued starting 08/02/2019, 2 completed End: 08-02-2019 Lactate, Sepsis Lactate, Sepsis Lab Timed Now Then Every 2hr for 2 Occurrences starting 08/02/2019 until 08/02/2019, 1 completed [place] Comment on above: Now Then Every 2hr f or 2 Occurrences starting 08/02/2019 until 08/02/2019, 1 completed Nuclear Ab [Titer] i n [facility] Patient Education [facility] Work Phone: Patient referral [facility] Work Phone: Potassium [Moles/vol ume] in Serum or Plasma [facility] Work Phone: Problems Active Problems Problem Classification Problem Date Documented Date Episodic/Chronic Acute and chronic tonsillitis (10 sources) Amygdalolith; Translations: [Other chronic diseases of tonsils and adenoids] 03-15-2024 Chronic Acute and unspecified renal failure (1 source) Chronic renal failure; Translations: [Chronic renal failure, stage 4 (severe) ([facility])] Chronic Acute and unspecified renal [...] [Kidney Follow-up] Onset: 3 Urinary tract infections (20 sources) Acute cystitis; Translations: [Urinary tract infectious disease] 05-15-2020 Episodic Past or Other Problems Problem Classification Problem Date Documented Da te Episodic/Chronic Diabetes mellitus without complication (2 sources) Impaired fasting glucose; Translations: [Impaired fasting glucose] Onset: 08-26-2023 Episodic Fluid and electrolyte disorders (3 sources) Acidosis; Translations: [ACIDOSIS] Onset: 12-06-2021 Resolved: 05-02-2022 Episodic Other aftercare (2 sources) Other fdc (current) drug therapy; Translations: [Other fdc (current) drug therapy] Onset: 03-31-2023 Episodic Other non-traumatic joint disorders (1 source) Pain in unspecified joint; Translations: [Pain in unspecified joint] Onset: 11-06-2023 Episodic Other screening for suspected conditions (not mental disorders or infectious disease) (1 source) Encounter for screening for malignant neoplasm of colon Onset: 02-26-2022 Resolved: 02-26-2022 Episodic Otitis media and related conditions (1 source) Otitis media, unspecified, bilateral Onset: 04-30-2022 Resolved: 04-30-2022 Episodic Procedures Date Procedure Procedure Detail Performing Clinician Start: 07-16-2022 Screening mammograph y of bilateral breasts DO Ming [employer] Phone: Start: 06-18-2022 Arteriovenous fistulization DO Ming [employer] Phone: Start: 05-30-2022 Ultrasound (US) dopp ler flow mapping of vein of upper limb DO Ming [employer] Phone: Start: 04-01-2022 Screening colonoscopy D O Ming [employer] Phone: Start: 08-02-2019 Assay of lactate VIDAL [...] KAITLIN Start: 08-02-2019 Urinalysis microscopic only Vidal Madrigal [...] Antigen (LFIA) DO Angy Espinoza Work Phone: Results Test Name Value Interpretation Reference Range Facility Urine Cultureon 03-15-2024 Bacteria identified Cx Nom (U) ORGANISM: Escherichia coli (MDRO) (O:ESCCOLMDRO) [place] Count >100,000 Aerobic CODI Charge (NMIC56) SUSCEPTIBILITY [...] RESISTANT TO ALL B-LACTAM DRUGS. PERFORMED BY: [place] [address] PATHOLOGIST SNOW RANGER ANAHY MCKEE M.D. Normal [facility] Comment on above: Performed By: #### C UU #### [address] Documentationon 03-03-2024 Documentation [id number] Antonio Puri i 1975 F Date Provider Department Center 03/03/2024 750-JOSE RAFAEL GAVIRIA TXP None Family History Problem Relation Age of Onset Fibromyalgia Mother Heart disease Father Hypertension Sister Polycystic kidney disease Sister Hypertension Brother Polycystic kidney disease Brother Family Status - Relation Status Age at Mother Father Sister Brother Normal [facility] Follow-Upon 12-23-2023 Follow-Up [id number] Antonio Puri i 1975 F Date Provider Department Center 12/23/2023 124-MUNIRA PHAN TXP None Family History Problem Relation Age of Onset Fibromyalgia Mother Heart disease Father Hypertension Sister Polycystic kidney disease Sister Hypertension Brother Polycystic kidney disease Brother Family Status - Relation Status Age at Mother Father Sister Brother Level of Service:29947 RI OFFICE/OUTPATIENT ESTABLISHED MOD MDM 30 MIN Reason for Visit and Comments: Kidney Follow-up [] - Pt has questions about her lab work. Normal [facility] PAPITO Antinuclear Antibodieson 11-06-2023 Antinuclear Abs, IFA Negative Normal . [facility] Comment on above: Result Comment: Nega tive <1:80 Borderline 1:80 Positive >1:80 ICAP nomenclature: AC-0 For more information about Hep-2 cell patterns use ANApatterns.org, the official website for the International Consensus on Antinuclear Antibody (PAPITO) Patterns (ICAP). Performed at: [facility] [address] [id number] Escort Blind: Gabriel Whitman PhD, Phone: [phone] PERFORMED BY: [place] [address] PATHOLOGIST SNOW RANGER ANAHY MCKEE M.D. Performed By: #### C K, CMP, CRP, CBC, ESR #### [facility] [address] [place] [address] #### PAPITO #### [facility] , Alanine aminotransferase [En zymatic activity/volume] in Serum or PlasmaOrdered By: Perri Ceja on 11-06-2023 ALT [Catalytic activity/Vol] 20 U/L Normal 7-52 [facility] Comment on above: Performed By: #### C K, CMP, CRP, CBC, ESR #### [facility] [address] [place] [address] [place] #### PAPITO #### [facility] , Albumin [Mass/volume] in Ser um or Plasma by Bromocresol green (BCG) dye binding methoOrdered By: Perri Ceja on 11-06-2023 Albumin BCG dye [Mass/Vol] 4.7 g/dL 3.5-5.7 [facility] Alkaline phosphatase [Enzyma tic activity/volume] in Serum or PlasmaOrdered By: Perri Ceja on 11-06-2023 ALP [Catalytic activity/Vol] 96 U/L Normal 34-104 [facility] Comment on above: Performed By: #### C K, CMP, CRP, CBC, ESR #### [place] [address] [place] #### PAPITO #### [facility] , Aspartate aminotransferase [ Enzymatic activity/volume] in Serum or PlasmaOrdered By: Perri Ceja on 11-06-2023 AST [Catalytic activity/Vol] 16 U/L Normal 13-39 [facility] Comment on above: Performed By: #### C K, CMP, CRP, CBC, ESR #### [place] [address] [place] #### PAPITO #### [facility] , Automated basophil %Ordered By: Perri Ceja on 11-06-2023 Basophils/100 WBC (Bld) 0.7 % Normal . [facility] Comment on above: Performed By: #### C K, CMP, CRP, CBC, ESR #### [place] [address] [place] #### PAPITO #### [facility] , Automated basophil countOrde red By: Perri Ceja on 11-06-2023 Basophils (Bld) [#/Vol] 0.1 10*3/uL Normal 0.0-0.2 [facility] Comment on above: Performed By: #### C K, CMP, CRP, CBC, ESR #### [place] [address] [place] #### PAPITO #### [facility] , Automated blood monocyte cou ntOrdered By: Perri Ceja on 11-06-2023 Monocytes (Bld) [#/Vol] 0.6 10*3/uL Normal 0.0-0.8 [facility] Comment on above: Performed By: #### C K, CMP, CRP, CBC, ESR #### [place] [address] [place] #### PAPITO #### [facility] , Automated eosinophil %Ordere d By: Perri Ceja on 11-06-2023 Eosinophils/100 WBC (Bld) 3.0 % Normal . [facility] Comment on above: Performed By: #### C K, CMP, CRP, CBC, ESR #### [facility] [address] [place] [address] [place] #### PAPITO #### [facility] , Automated eosinophil countOr dered By: Perri Ceja on 11-06-2023 Eosinophils (Bld) [#/Vol] 0.3 10*3/uL Normal 0.0-0.45 [facility] Comment on above: Performed By: #### C K, CMP, CRP, CBC, ESR #### [address] #### PAPITO #### [facility] , Automated monocyte %Ordered By: Perri Ceja on 11-06-2023 Monocytes/100 WBC (Bld) 6.6 % Normal . [facility] Comment on above: Performed By: #### C K, CMP, CRP, CBC, ESR #### [place] [address] [place] #### PAPITO #### [facility] , Automated neutrophil %Ordere d By: Perri Ceja on 11-06-2023 Neutrophils/100 WBC (Bld) 72.1 % Normal . [facility] Comment on above: Performed By: #### C K, CMP, CRP, CBC, ESR #### [place] [address] [place] #### PAPITO #### [facility] , Bilirubin.total [Mass/volume ] in Serum or PlasmaOrdered By: Perri Ceja on 11-06-2023 Bilirubin [Mass/Vol] 0.4 mg/dL Normal 0.3-1.0 [facility] Comment on above: Performed By: #### C K, CMP, CRP, CBC, ESR #### [facility] [address] [place] [address] #### PAPITO #### [facility] , C reactive protein [Mass/vol ume] in Serum or PlasmaOrdered By: Perri Ceja on 11-06-2023 CRP [Mass/Vol] 2.0 mg/dL 0.0-0.5 [facility] C-Reactive Proteinon 024 C-Reactive Protein 2.0 mg/dL High 0.0-0.5 [facility] Comment on above: Result Comment: PERF ORMED BY: [place] [address] PATHOLOGIST SNOW RANGER ANAHY MCKEE M.D. Performed By: #### C K, CMP, CRP, CBC, ESR #### [address] #### PAIPTO #### [facility] , Calcium [Mass/volume] in Ser um or PlasmaOrdered By: Perri Ceja on 11-06-2023 Calcium [Mass/Vol] 10.3 mg/dL Normal 8.6-10.3 [facility] Comment on above: Performed By: #### C K, CMP, CRP, CBC, ESR #### [address] #### PAPITO #### [facility] , Carbon dioxide, total [Moles /volume] in Serum or PlasmaOrdered By: Perri Ceja on 11-06-2023 CO2 [Moles/Vol] 26.1 mmol/L Normal 21.0-31.0 [facility] Comment on above: Performed By: #### C K, CMP, CRP, CBC, ESR #### [facility] [address] [place] [address] [place] #### PAPITO #### [facility] , Chloride [Moles/volume] in S aislinn or PlasmaOrdered By: Perri Ceja on 11-06-2023 Chloride [Moles/Vol] 104 mmol/L Normal 98-107 [facility] Comment on above: Performed By: #### C K, CMP, CRP, CBC, ESR #### [facility] [facility] [address] [place] [address] [place] #### PAPITO #### [facility] , Complete Blood Count Auto Di ffon 11-06-2023 Mean Corpuscular HGB Conc 33.6 g/dL Normal 32.0-35.0 [facility] Comment on above: Performed By: #### C K, CMP, CRP, CBC, ESR #### [facility] [address] [place] [address] [place] #### PAPITO #### [facility] , NRBC% 0.1 /100{WBC} Normal 0-0.5 [facility] Comment on above: Performed By: #### C K, CMP, CRP, CBC, ESR #### [place] [address] [place] #### PAPITO #### [facility] , Comprehensive Metabolic Pane jonathan 11-06-2023 Albumin [Mass/Vol] 4.7 g/dL Normal 3.5-5.7 [facility] Comment on above: Performed By: #### C K, CMP, CRP, CBC, ESR #### [place] [address] [place] #### PAPITO #### [facility] , GFR/1.73 sq M.predicted MDRD (S/P/Bld) [Vol rate/Area] 57.919 mL/min/{1.73_m2} Normal [facility] Comment on above: Performed By: #### C K, CMP, CRP, CBC, ESR #### [facility] [address] [place] [address] [place] #### PAPITO #### [facility] , Creatine kinase [Enzymatic a ctivity/volume] in Serum or PlasmaOrdered By: Perri Ceja on 11-06-2023 CK [Catalytic activity/Vol] 30 U/L Normal 30-223 [facility] Comment on above: Result Comment: PERF ORMED BY: [place] [address] PATHOLOGIST SNOW RANGER ANAHY MCKEE M.D. Performed By: #### C K, CMP, CRP, CBC, ESR #### [address] #### PAPITO #### [facility] , Creatinine [Mass/volume] in Serum or PlasmaOrdered By: Perri Ceja on 11-06-2023 Creatinine [Mass/Vol] 1.17 mg/dL Normal 0.60-1.20 [facility] Comment on above: Performed By: #### C K, CMP, CRP, CBC, ESR #### [address] #### PAPITO #### [facility] , Erythrocyte Sedimentation Ra mathieu 11-06-2023 ESR (Bld) [Velocity] 49 mm/h High 0-19 [facility] Comment on above: Result Comment: PERF ORMED BY: [place] [address] PATHOLOGIST SNOW RANGER ANAHY MCKEE M.D. Performed By: #### C K, CMP, CRP, CBC, ESR #### [place] [address] [place] #### PAPITO #### [facility] , Erythrocyte distribution wid th [Ratio] by Automated countOrdered By: Perri Ceja on 11-06-2023 Erythrocyte distribution width (RBC) [Ratio] 15.3 % Normal 11.9-15.3 [facility] Comment on above: Performed By: #### C K, CMP, CRP, CBC, ESR #### [place] [address] [place] #### PAPITO #### [facility] , Erythrocyte sedimentation ra te by Photometric methodOrdered By: Perri Ceja on 11-06-2023 ESR Photometric method (Bld) [Velocity] 49 mm/hr 0-19 [facility] Erythrocytes [#/volume] in B lood by Automated countOrdered By: Perri Ceja on 11-06-2023 RBC (Bld) [#/Vol] 4.60 10*6/uL Normal 3.60-5.00 [facility] Comment on above: Performed By: #### C K, CMP, CRP, CBC, ESR #### [facility] [address] [place] [address] [place] #### PAPITO #### [facility] , Glucose [Mass/volume] in Ser um or PlasmaOrdered By: Perri Ceja on 11-06-2023 Glucose [Mass/Vol] 91 mg/dL Normal 70-100 [facility] Comment on above: ADA recommended refe rence rangeRandom Glucose Reference Range is dependent on time and content of last meal. Glucose of more than 200 mg/dL in a nonstressed, ambulatory subject supports the diagnosis of Diabetes Mellitus. Result Comment: [place] om Glucose Reference Range is dependent on time and content of last meal. Glucose of more than 200 mg/dL in a nonstressed, ambulatory subject supports the diagnosis of Diabetes Mellitus. ADA recommended reference range Performed By: #### C K, CMP, CRP, CBC, ESR #### [place] [address] [place] #### PAPITO #### [facility] , Hematocrit [Volume Fraction] of Blood by Automated countOrdered By: Perri Ceja on 11-06-2023 Hematocrit (Bld) [Volume fraction] 38.9 % Normal 34.0-46.4 [facility] Comment on above: Performed By: #### C K, CMP, CRP, CBC, ESR #### [facility] [address] [place] [address] [place] #### PAPITO #### [facility] , Hemoglobin [Mass/volume] in BloodOrdered By: Perri Ceja on 11-06-2023 Hemoglobin (Bld) [Mass/Vol] 13.1 g/dL Normal 11.8-15.4 [facility] Comment on above: Performed By: #### C K, CMP, CRP, CBC, ESR #### [facility] [address] [place] [address] [place] #### PAPITO #### [facility] , Leukocytes [#/volume] correc noah for nucleated erythrocytes in Blood by Automated counOrdered By: Perri Ceja on 11-06-2023 WBC corrected for nucl RBC Auto (Bld) [#/Vol] 8.8 10*3/uL 3.8-11.6 [facility] Leukocytes [#/volume] in Blo od by Automated countOrdered By: Perri Ceja on 11-06-2023 WBC (Bld) [#/Vol] 8.8 10*3/uL Normal 3.8-11.6 [facility] Comment on above: Performed By: #### C K, CMP, CRP, CBC, ESR #### [place] [address] [place] #### PAPITO #### [facility] , Lymphocytes [#/volume] in Bl ood by Automated countOrdered By: Perri Ceja on 11-06-2023 Lymphocytes (Bld) [#/Vol] 1.5 10*3/uL Normal 1.00-4.8 [facility] Comment on above: Performed By: #### C K, CMP, CRP, CBC, ESR #### [place] [address] [place] #### PPAITO #### [facility] , Lymphocytes/100 leukocytes i n Blood by Automated countOrdered By: Perri Ceja on 11-06-2023 Lymphocytes/100 WBC (Bld) 17.6 % Normal . [facility] Comment on above: Performed By: #### C K, CMP, CRP, CBC, ESR #### [place] [address] [place] #### PAPITO #### [facility] , MCH [Entitic mass] by Automa noah countOrdered By: Perri Ceja on 11-06-2023 MCH (RBC) [Entitic mass] 28.4 pg Normal 24.7-34.3 [facility] Comment on above: Performed By: #### C K, CMP, CRP, CBC, ESR #### [facility] [address] [place] [address] [place] #### PAPITO #### [facility] , MCHC Auto (RBC) [Mass/Vol]Or dered By: Perri Ceja on 11-06-2023 MCHC (RBC) [Mass/Vol] 33.6 g/dL 32.0-35.0 [facility] MCV [Entitic volume] by Auto mated countOrdered By: Perri Ceja on 11-06-2023 MCV (RBC) [Entitic vol] 84.6 fL Normal 80-100 [facility] Comment on above: Performed By: #### C K, CMP, CRP, CBC, ESR #### [facility] [address] [place] [address] [place] #### PAPITO #### [facility] , Neutrophils [#/volume] in Bl ood by Automated countOrdered By: Perri Ceja on 11-06-2023 Neutrophils (Bld) [#/Vol] 6.3 10*3/uL Normal 1.8-7.7 [facility] Comment on above: Performed By: #### C K, CMP, CRP, CBC, ESR #### [facility] [address] [place] [address] [place] #### PAPITO #### [facility] , No Panel InformationOrdered By: Perri Ceja on 11-06-2023 Estimated GFR (CKD-EPI) 57.919 mL/Min [facility] Creatinine Clearance (Chem N/A [facility] Nucleated erythrocytes [Pres ence] in Blood by Automated countOrdered By: Perri Ceja on 11-06-2023 Nucleated RBC Auto Ql (Bld) 0.1 /100{WBC} 0-0.5 [facility] Platelet mean volume [Entiti c volume] in Blood by Automated countOrdered By: Perri Ceja on 11-06-2023 Platelet mean volume (Bld) [Entitic vol] 6.9 fL Normal 6.3-10.7 [facility] Comment on above: Performed By: #### C K, CMP, CRP, CBC, ESR #### [address] #### PAPITO #### [facility] , Platelets [#/volume] in Bloo d by Automated countOrdered By: Perri Ceja on 11-06-2023 Platelets (Bld) [#/Vol] 393 10*3/uL Normal 150-450 [facility] Comment on above: Performed By: #### C K, CMP, CRP, CBC, ESR #### [address] #### PAPITO #### [facility] , Potassium [Moles/volume] in Serum or PlasmaOrdered By: Perri Ceja on 11-06-2023 Potassium [Moles/Vol] 3.8 mmol/L Normal 3.5-5.1 [facility] Comment on above: Performed By: #### C K, CMP, CRP, CBC, ESR #### [address] #### PAPITO #### [facility] , Protein [Mass/volume] in Ser um or PlasmaOrdered By: Perri Ceja on 11-06-2023 Protein [Mass/Vol] 7.7 g/dL Normal 6.4-8.9 [facility] Comment on above: Performed By: #### C K, CMP, CRP, CBC, ESR #### [place] [address] [place] #### PAPITO #### [facility] , Serum globulin measurement b y calculation (mass/volume)Ordered By: Perri Ceja on 11-06-2023 Globulin (S) [Mass/Vol] 3.0 g/dL Normal [facility] Comment on above: Performed By: #### C K, CMP, CRP, CBC, ESR #### [facility] [address] [place] [address] [place] #### PAIPTO #### [facility] , Serum or plasma albumin/glob ulin mass ratioOrdered By: Perri Ceja on 11-06-2023 Albumin/Globulin [Mass ratio] 1.6 {ratio} Normal [facility] Comment on above: Performed By: #### C K, CMP, CRP, CBC, ESR #### [place] [address] [place] #### PAPITO #### [facility] , Serum or plasma anion gap de terminationOrdered By: Perri Ceja on 11-06-2023 Anion gap [Moles/Vol] 12.7 mmol/L Normal 6.0-15.0 [facility] Comment on above: Performed By: #### C K, CMP, CRP, CBC, ESR #### [facility] [address] [place] [address] #### PAPITO #### [facility] , Sodium [Moles/volume] in Ser um or PlasmaOrdered By: Perri Ceja on 11-06-2023 Sodium [Moles/Vol] 139 mmol/L Normal 136-145 [facility] Comment on above: Performed By: #### C K, CMP, CRP, CBC, ESR #### [facility] [address] [place] [address] [place] #### PAPITO #### [facility] , Urea nitrogen [Mass/volume] in Serum or PlasmaOrdered By: Perri Ceja on 11-06-2023 Urea nitrogen [Mass/Vol] 17 mg/dL Normal 7-25 [facility] Comment on above: Performed By: #### C K, CMP, CRP, CBC, ESR #### [facility] [address] [place] [address] [place] #### PAPITO #### [facility] , Orders Onlyon 12-28-2023 Orders Only [id number] Antonio Puri i 1975 F Date Provider Department Center 10/02/2023 1971-[facility] None Family History Problem Relation Age of Onset Fibromyalgia Mother Heart disease Father Hypertension Sister Polycystic kidney disease Sister Hypertension Brother Polycystic kidney disease Brother Family Status - Relation Status Age at Mother Father Sister Brother Normal [facility] Follow-Upon 09-01-2023 Follow-Up [id number] Antonio Puri i 1975 F Date Provider Department Center 09/01/2023 344-DOLORES SUJIT TXP None Family History Problem Relation Age of Onset Fibromyalgia Mother Heart disease Father Hypertension Sister Polycystic kidney disease Sister Hypertension Brother Polycystic kidney disease Brother Family Status - Relation Status Age at Mother Father Sister Brother Level of Service:67673 RI OFFICE/OUTPATIENT ESTABLISHED MOD MDM 30-39 MIN () Reason for Visit and Comments: Kidney Follow-up [] - Patient reports pain all over her body that comes and goes. She would like to discuss swelling in her feet. Normal [facility] BILIRUBIN, DIRECTon 08-26-20 Magnesium [Mass/Vol] 0.1 mg/dL Normal 0-0.2 [facility] Comment on above: Performed By: #### L [id number] #### [facility] ([facility]) [address] [place] [address] CBC WITH AUTO DIFFERENTIALon 08-26-2023 Basophils (Bld) [#/Vol] 0.05 10*3/uL Normal 0.00-0.20 [facility] Comment on above: Performed By: #### L [id number] #### [facility] ([facility]) [address] [place] [address] Basophils/100 WBC (Bld) 0.6 % Normal 0.0-1.0 [facility] Comment on above: Performed By: #### L [id number] #### [facility] ([facility]) [address] [place] [address] Eosinophils (Bld) [#/Vol] 0.20 10*3/uL Normal 0.00-0.50 [facility] Comment on above: Performed By: #### L [id number] #### [facility] ([facility]) [address] [place] [address] Eosinophils/100 WBC (Bld) 2.5 % Normal 0.0-6.0 [facility] Comment on above: Performed By: #### L [id number] #### [facility] ([facility]) [address] [place] [address] Erythrocyte distribution width (RBC) [Ratio] 14.4 % Normal 11.5-15.0 [facility] Comment on above: Performed By: #### L [id number] #### [facility] ([facility]) [address] [place] [address] ERYTHROCYTE MEAN CORPUSCULAR HEMOGLOBIN CONCENTRATION (G/DL) BY AUTOMATED 32.9 g/dL Normal 32.0-35.0 [facility] Comment on above: Performed By: #### L [id number] #### [facility] ([facility]) [address] [place] [address] Hematocrit (Bld) [Volume fraction] 40.4 % Normal 36.0-48.0 [facility] Comment on above: Performed By: #### L [id number] #### [facility] ([facility]) [address] [place] [address] Hemoglobin (Bld) [Mass/Vol] 13.3 g/dL Normal 12.0-15.0 [facility] Comment on above: Performed By: #### L [id number] #### [facility] ([facility]) [address] [place] [address] Immature granulocytes (Bld) [#/Vol] 0.06 10*3/uL Normal 0.00-0.20 [facility] Comment on above: Performed By: #### L [id number] #### [facility] ([facility]) [address] [place] [address] Immature granulocytes/100 WBC (Bld) 0.7 % Normal 0.0-1.0 [facility] Comment on above: Performed By: #### L [id number] #### [facility] ([facility]) [address] [place] [address] Lymphocytes (Bld) [#/Vol] 1.19 10*3/uL Low 1.20-4.00 [facility] Comment on above: Performed By: #### L [id number] #### [facility] ([facility]) [address] [place] [address] Lymphocytes/100 WBC (Bld) 14.6 % Low 20.0-45.0 [facility] Comment on above: Performed By: #### L [id number] #### [facility] ([facility]) [address] [place] [address] MCH (RBC) [Entitic mass] 28.4 pg Normal 27.0-33.0 [facility] Comment on above: Performed By: #### L [id number] #### [facility] ([facility]) [address] [place] [address] MCV (RBC) [Entitic vol] 86.1 fL Normal 82.0-98.0 [facility] Comment on above: Performed By: #### L [id number] #### [facility] ([facility]) [address] [place] [address] Monocytes (Bld) [#/Vol] 0.42 10*3/uL Normal 0.10-1.00 [facility] Comment on above: Performed By: #### L [id number] #### [facility] ([facility]) [address] [place] [address] Monocytes/100 WBC (Bld) 5.2 % Normal 5.0-12.0 [facility] Comment on above: Performed By: #### L [id number] #### [facility] ([facility]) [address] [place] [address] Neutrophils (Bld) [#/Vol] 6.22 10*3/uL Normal 1.60-7.60 [facility] Comment on above: Performed By: #### L [id number] #### [facility] ([facility]) [address] [place] [address] Neutrophils/100 WBC (Bld) 76.4 % High 40.0-72.0 [facility] Comment on above: Performed By: #### L [id number] #### [facility] ([facility]) [address] [place] [address] NRBC (PER 100 WBCS) BY AUTOMATED COUNT 0.0 % Normal 0 [facility] Comment on above: Performed By: #### L [id number] #### [facility] ([facility]) [address] [place] [address] PLATELETS (10*3/UL) IN BLOOD AUTOMATED COUNT 374 10*3/uL Normal 150-400 [facility] Comment on above: Performed By: #### L [id number] #### [facility] ([facility]) [address] [place] [address] RBC (Bld) [#/Vol] 4.69 10*6/uL Normal 3.80-5.00 [facility] Comment on above: Performed By: #### L [id number] #### [facility] ([facility]) [address] [place] [address] WBC (Bld) [#/Vol] 8.14 10*3/uL Normal 4.00-10.60 [facility] Comment on above: Performed By: #### L [id number] #### [facility] ([facility]) [address] [place] [address] COMPREHENSIVE METABOLIC PANE Jonathan 08-26-2023 Albumin [Mass/Vol] 4.7 g/dL Normal 3.5-5.7 [facility] Comment on above: Performed By: #### L [id number] ####[facility] ([facility])[address] [place] [address] ALP [Catalytic activity/Vol] 90 U/L Normal 34-104 [facility] Comment on above: Performed By: #### L [id number] ####[facility] ([facility])[address] [place] [address] ALT [Catalytic activity/Vol] 26 U/L Normal 7-52 [facility] Comment on above: Performed By: #### L [id number] ####[facility] ([facility])[address] [place] [address] Anion gap [Moles/Vol] 12 mmol/L Normal 7-20 [facility] Comment on above: Performed By: #### L [id number] ####[facility] ([facility])[address] [place] [address] AST [Catalytic activity/Vol] 22 U/L Normal 13-39 [facility] Comment on above: Performed By: #### L [id number] ####[facility] ([facility])[address] [place] [address] Bilirubin [Mass/Vol] 0.4 mg/dL Normal 0.3-1.0 [facility] Comment on above: Performed By: #### L [id number] ####[facility] ([facility])[address] [place] [address] Calcium [Mass/Vol] 9.6 mg/dL Normal 8.6-10.3 [facility] Comment on above: Performed By: #### L [id number] ####[facility] ([facility])[address] [place] [address] Chloride [Moles/Vol] 103 mmol/L Normal 98-107 [facility] Comment on above: Performed By: #### L [id number] ####[facility] ([facility])[address] [place] [address] CO2 [Moles/Vol] 26 mmol/L Normal 21-31 [facility] Comment on above: Performed By: #### L [id number] ####[facility] ([facility])[address] [place] [address] Creatinine [Mass/Vol] 1.12 mg/dL Normal 0.60-1.20 [facility] Comment on above: Performed By: #### L [id number] ####[facility] ([facility])[address] [place] [address] GLOMERULAR FILTRATION RATE ML/MIN/1.73 SQ M.PREDICTED 61.0 mL/min/1.73m*2 Normal >60.0 [facility] Comment on above: Result Comment: The [facility]???s estimated glomerular filtration rate (eGFR) will no [...] By: #### L [id number] ####[facility] ([facility])[address] [place] [address] Glucose [Mass/Vol] 125 mg/dL High 70-100 [facility] Comment on above: Performed By: #### L [id number] ####[facility] ([facility])[address] [place] [address] Potassium [Moles/Vol] 3.1 mmol/L Low 3.5-5.1 [facility] Comment on above: Performed By: #### L [id number] ####[facility] ([facility])[address] [place] [address] Protein [Mass/Vol] 7.4 g/dL Normal 6.0-8.3 [facility] Comment on above: Performed By: #### L [id number] ####[facility] ([facility])[address] [place] [address] Sodium [Moles/Vol] 138 mmol/L Normal 136-145 [facility] Comment on above: Performed By: #### L [id number] ####[facility] ([facility])[address] [place] [address] Urea nitrogen [Mass/Vol] 15 mg/dL Normal 7-25 [facility] Comment on above: Performed By: #### L [id number] ####[facility] ([facility])[address] [facility] [address] UREA NITROGEN/CREATININE (MASS RATIO) IN SER/PLAS 13.4 Normal [facility] Comment on above: Performed By: #### L [id number] ####[facility] ([facility])[address] [place] [address] HEMOGLOBIN A1Con 08-26-2023 Glucose [Mass/Vol] 108 mg/dL Normal [facility] Comment on above: Performed By: #### L [id number] #### [facility] ([facility]) [address] [place] [address] HbA1c (Bld) [Mass fraction] 5.4 % Normal 4.0-6.0 [facility] Comment on above: Performed By: #### L [id number] #### [facility] ([facility]) [address] [address] LIPID PANELon 08-26-2023 CHOL/HDL 4.7 mg/dL Normal [facility] Comment on above: Performed By: #### L [id number] #### [facility] ([facility]) [address] [address] Cholesterol [Mass/Vol] 198 mg/dL Normal 120-200 [facility] Comment on above: Performed By: #### L [id number] #### [facility] ([facility]) [address] [place] [address] Magnesium [Mass/Vol] 248 mg/dL High 40-149 [facility] Comment on above: Result Comment: TRIG LYCERIDE REFERENCE RANGE: 20 YEARS AND OLDER CARDIOVASCULAR RISK LESS THAN 150 mg/dL LOW RISK 150 TO 199 mg/dL BORDERLINE RISK 200 mg/dL AND GREATER HIGH RISK Performed By: #### L [id number] #### [facility] ([facility]) [address] [place] [address] Magnesium [Mass/Vol] 106 mg/dL Normal 0-160 [facility] Comment on above: Performed By: #### L [id number] #### [facility] ([facility]) [address] [place] [address] Magnesium [Mass/Vol] 42 mg/dL Normal 23-92 [facility] Comment on above: Performed By: #### L [id number] #### [facility] ([facility]) [address] [place] [address] NON HDL CHOL. (LDL+VLDL) 156 Normal [facility] Comment on above: Performed By: #### L [id number] #### [facility] ([facility]) [address] [place] [address] TOTAL VLDL-C 50 mg/dL High 0-40 [facility] Comment on above: Performed By: #### L [id number] #### [facility] ([facility]) [address] [place] [address] Labon 08-26-2023 Lab [id number] Antonio Puri i 1975 F Date Provider Department Center 08/26/2023 2245-[facility]PD LAB RESOURCE [facility] Family History Problem Relation Age of Onset Fibromyalgia Mother Heart disease Father Hypertension Sister Polycystic kidney disease Sister Hypertension Brother Polycystic kidney disease Brother Family Status - Relation Status Age at Mother Father Sister Brother Normal [facility] MAGNESIUMon 08-26-2023 Magnesium [Mass/Vol] 1.5 mg/dL Low 1.9-2.7 [facility] Comment on above: Performed By: #### L [id number] #### [facility] ([facility]) [address] [place] [address] PHOSPHORUSon 08-26-2023 Magnesium [Mass/Vol] 2.9 mg/dL Normal 2.5-5.0 [facility] Comment on above: Performed By: #### L [id number] ####[facility] ([facility])[address] [place] [address] TACROLIMUS LEVELon Tacrolimus (Bld) [Mass/Vol] 9.2 ng/mL Normal 5.0-20.0 [facility] Comment on above: Result Comment: The [employer] Tacrolimus assay is a delayed one-step immunoassay for the quantitative determination of tacrolimus in human whole blood using the chemiluminescent microparticle immunoassay (CMIA) technology with flexible assay protocols, referred to as Chemiflex. Performed By: #### L [id number] #### [facility] ([facility]) [address] [address] URIC ACIDon 08-26-2023 Magnesium [Mass/Vol] 5.1 mg/dL Normal 2.3-6.6 [facility] Comment on above: Performed By: #### L [id number] #### [facility] ([facility]) [address] [place] [address] COMPREHENSIVE METABOLIC PANE Jonathan 08-06-2023 Albumin [Mass/Vol] 4.7 g/dL Normal 3.5-5.7 [facility] Comment on above: Performed By: #### L [id number] #### [facility] ([facility]) [address] [place] [address] ALP [Catalytic activity/Vol] 85 U/L Normal 34-104 [facility] Comment on above: Performed By: #### L [id number] #### [facility] ([facility]) [address] [place] [address] ALT [Catalytic activity/Vol] 25 U/L Normal 7-52 [facility] Comment on above: Performed By: #### L [id number] #### [facility] ([facility]) [address] [place] [address] Anion gap [Moles/Vol] 14 mmol/L Normal 7-20 [facility] Comment on above: Performed By: #### L [id number] #### [facility] ([facility]) [address] [place] [address] AST [Catalytic activity/Vol] 23 U/L Normal 13-39 [facility] Comment on above: Performed By: #### L [id number] #### [facility] ([facility]) [address] [place] [address] Bilirubin [Mass/Vol] 0.5 mg/dL Normal 0.3-1.0 [facility] Comment on above: Performed By: #### L [id number] #### [facility] ([facility]) [address] [place] [address] Calcium [Mass/Vol] 9.5 mg/dL Normal 8.6-10.3 [facility] Comment on above: Performed By: #### L [id number] #### [facility] ([facility]) [address] [place] [address] Chloride [Moles/Vol] 105 mmol/L Normal 98-107 [facility] Comment on above: Performed By: #### L [id number] #### [facility] ([facility]) [address] [place] [address] CO2 [Moles/Vol] 21 mmol/L Normal 21-31 [facility] Comment on above: Performed By: #### L [id number] #### [facility] ([facility]) [address] [place] [address] Creatinine [Mass/Vol] 1.23 mg/dL High 0.60-1.20 [facility] Comment on above: Performed By: #### L [id number] #### [facility] ([facility]) [address] [place] [address] GLOMERULAR FILTRATION RATE ML/MIN/1.73 SQ M.PREDICTED 54.5 mL/min/1.73m*2 Low >60.0 [facility] Comment on above: Result Comment: The [facility]???s estimated glomerular filtration rate (eGFR) will no [...] group of individuals. Performed By: #### L [id number] #### [facility] ([facility]) [address] [place] [address] Glucose [Mass/Vol] 133 mg/dL High 70-100 [facility] Comment on above: Performed By: #### L [id number] #### [facility] ([facility]) [address] [place] [address] Potassium [Moles/Vol] 3.4 mmol/L Low 3.5-5.1 [facility] Comment on above: Performed By: #### L [id number] #### [facility] ([facility]) [address] [place] [address] Protein [Mass/Vol] 7.4 g/dL Normal 6.0-8.3 [facility] Comment on above: Performed By: #### L [id number] #### [facility] ([facility]) [address] [place] [address] Sodium [Moles/Vol] 137 mmol/L Normal 136-145 [facility] Comment on above: Performed By: #### L [id number] #### [facility] ([facility]) [address] [place] [address] Urea nitrogen [Mass/Vol] 14 mg/dL Normal 7-25 [facility] Comment on above: Performed By: #### L [id number] #### [facility] ([facility]) [address] [place] [address] UREA NITROGEN/CREATININE (MASS RATIO) IN SER/PLAS 11.4 Normal [facility] Comment on above: Performed By: #### L [id number] #### [facility] ([facility]) [address] [place] [address] Labon 08-06-2023 Lab [id number] Antonio Puri i 1975 F Date Provider Department Center 08/06/2023 2245-[facility] OPD LAB RESOURCE [facility] OPD [facility] C Family History Problem Relation Age of Onset Fibromyalgia Mother Heart disease Father Hypertension Sister Polycystic kidney disease Sister Hypertension Brother Polycystic kidney disease Brother Family Status - Relation Status Age at Mother Father Sister Brother Normal [facility] Orders Onlyon 08-06-2023 Orders Only [id number] Antonio Puri i 1975 F Date Provider Department Center 08/06/2023 Gino3TAINA TREVINO TXP None Family History Problem Relation Age of Onset Fibromyalgia Mother Heart disease Father Hypertension Sister Polycystic kidney disease Sister Hypertension Brother Polycystic kidney disease Brother Family Status - Relation Status Age at Mother Father Sister Brother Normal [facility] SINGLE ANTIGEN CLASS Ion AB SCREEN COMMENTS No Class I donor spe cific antibody identified [facility] Comment on above: Order Comment: To be used after initial monthly order expires Performed By: #### L [id number] #### [facility] TISSUE TYPING (HISTOTRAC) [address] [place], [place] [address] CLASS I TESTED DATE Normal [facility] Comment on above: Order Comment: To be used after initial monthly order expires Performed By: #### L [id number] #### [facility] TISSUE TYPING (HISTOTRAC) [address] [place] [address] [facility] SINGLE ANTIGEN CLASS 1 TEST METHOD Class I Single Antigen Normal [facility] Comment on above: Order Comment: To be used after initial monthly order expires Performed By: #### L [id number] #### [facility] TISSUE TYPING (HISTOTRAC) [address] [place] [address] [facility] SINGLE ANTIGEN CLASS IIon AB SCREEN COMMENTS No Class II donor specific antibody identified Normal [facility] Comment on above: Order Comment: To be used after initial monthly order expires Performed By: #### L [id number] #### [facility] TISSUE TYPING (HISTOTRAC) [address] [place] [address] [facility] CLASS II TESTED DATE [facility] Comment on above: Order Comment: To be used after initial monthly order expires Performed By: #### L [id number] #### [facility] TISSUE TYPING (HISTOTRAC) [address] [place] [address] [facility] SIGNED BY Signed by Nelson escamilla CHT(ACHI) MT(ASCP), Applications Instructor Transplant Immunology Normal [facility] Comment on above: Order Comment: To be used after initial monthly order expires Performed By: #### L [id number] #### [facility] TISSUE TYPING (HISTOTRAC) [address] [place], [place] [address] Result Comment: Clas s I Antigen Microbeads SINGLE ANTIGEN CLASS 2 TEST METHOD Class II Single Antigen Normal [facility] Comment on above: Order Comment: To be used after initial monthly order expires Result Comment: Clas s II Antigen Microbeads Performed By: #### L [id number] #### [facility] TISSUE TYPING (HISTOTRAC) [address] [place] [address] [facility] MM screening mammo BI w/CADo n 07-30-2023 MM screening mammo BI w/CAD [facility] Main [place] [address] [place] [address] Mammography Report Signed Patient: Mandeep Puri MR#: [id number] 15 : 1975 Acct:[id number] Age/Sex: 47 / F ADM Date: 07/30/23 Loc: IN Room: Type: [facility] Attending Dr: Referral Self Copies to: Ming [...] Messina Jr., D.O.07/30/2023 4:05 PM Dictation Location: [facility] Transcribed By: [facility] 07/30/231604 Dictated By: Evan Messina Jr, DO 07/30/231603 Signed By: 07/30/231604 Normal [facility] CBC WITH AUTO DIFFERENTIALon 07-24-2023 Basophils (Bld) [#/Vol] 0.06 10*3/uL Normal 0.00-0.20 [facility] Comment on above: Performed By: #### L [id number] ####[facility] ([facility])[address] [place] [address] Basophils/100 WBC (Bld) 0.7 % Normal 0.0-1.0 [facility] Comment on above: Performed By: #### L [id number] ####[facility] ([facility])[address] [place] [address] Eosinophils (Bld) [#/Vol] 0.28 10*3/uL Normal 0.00-0.50 [facility] Comment on above: Performed By: #### L [id number] ####[facility] ([facility])[address] [place] [address] Eosinophils/100 WBC (Bld) 3.3 % Normal 0.0-6.0 [facility] Comment on above: Performed By: #### L [id number] ####[facility] ([facility])[address] [place] [address] Erythrocyte distribution width (RBC) [Ratio] 14.6 % Normal 11.5-15.0 [facility] Comment on above: Performed By: #### L [id number] ####[facility] ([facility])[address] [place] [address] ERYTHROCYTE MEAN CORPUSCULAR HEMOGLOBIN CONCENTRATION (G/DL) BY AUTOMATED 33.2 g/dL Normal 32.0-35.0 [facility] Comment on above: Performed By: #### L [id number] ####[facility] ([facility])[address] [place] [address] Hematocrit (Bld) [Volume fraction] 39.7 % Normal 36.0-48.0 [facility] Comment on above: Performed By: #### L [id number] ####[facility] ([facility])[address] [place] [address] Hemoglobin (Bld) [Mass/Vol] 13.2 g/dL Normal 12.0-15.0 [facility] Comment on above: Performed By: #### L [id number] ####[facility] ([facility])[address] [place] [address] Immature granulocytes (Bld) [#/Vol] 0.09 10*3/uL Normal 0.00-0.20 [facility] Comment on above: Performed By: #### L [id number] ####[facility] ([facility])[address] [place] [address] Immature granulocytes/100 WBC (Bld) 1.1 % High 0.0-1.0 [facility] Comment on above: Performed By: #### L [id number] ####[facility] ([facility])[address] [place] [address] Lymphocytes (Bld) [#/Vol] 1.41 10*3/uL Normal 1.20-4.00 [facility] Comment on above: Performed By: #### L [id number] ####[facility] ([facility])[address] [place] [address] Lymphocytes/100 WBC (Bld) 16.5 % Low 20.0-45.0 [facility] Comment on above: Performed By: #### L [id number] ####[facility] ([facility])[address] [place] [address] MCH (RBC) [Entitic mass] 28.9 pg Normal 27.0-33.0 [facility] Comment on above: Performed By: #### L [id number] ####[facility] ([facility])[address] [place] [address] MCV (RBC) [Entitic vol] 86.9 fL Normal 82.0-98.0 [facility] Comment on above: Performed By: #### L [id number] ####[facility] ([facility])[address] [place] [address] Monocytes (Bld) [#/Vol] 0.44 10*3/uL Normal 0.10-1.00 [facility] Comment on above: Performed By: #### L [id number] ####[facility] ([facility])[address] [place] [address] Monocytes/100 WBC (Bld) 5.1 % Normal 5.0-12.0 [facility] Comment on above: Performed By: #### L [id number] ####[facility] ([facility])[address] [place] [address] Neutrophils (Bld) [#/Vol] 6.28 10*3/uL Normal 1.60-7.60 [facility] Comment on above: Performed By: #### L [id number] ####[facility] ([facility])[address] [place] [address] Neutrophils/100 WBC (Bld) 73.3 % High 40.0-72.0 [facility] Comment on above: Performed By: #### L [id number] ####[facility] ([facility])[address] [place] [address] NRBC (PER 100 WBCS) BY AUTOMATED COUNT 0.0 % Normal 0 [facility] Comment on above: Performed By: #### L [id number] ####[facility] ([facility])[address] [place] [address] PLATELETS (10*3/UL) IN BLOOD AUTOMATED COUNT 371 10*3/uL Normal 150-400 [facility] Comment on above: Performed By: #### L [id number] ####[facility] ([facility])[address] [place] [address] RBC (Bld) [#/Vol] 4.57 10*6/uL Normal 3.80-5.00 [facility] Comment on above: Performed By: #### L [id number] ####[facility] ([facility])[address] [place] [address] WBC (Bld) [#/Vol] 8.56 10*3/uL Normal 4.00-10.60 [facility] Comment on above: Performed By: #### L [id number] ####[facility] ([facility])[address] [place] [address] Labon 07-24-2023 Lab [id number] Khushi,Brand i 1975 F Date Provider Department Center 07/24/2023 2245-[facility] OPD LAB RESOURCE [facility] OPD [facility] Family History Problem Relation Age of Onset Fibromyalgia Mother Heart disease Father Hypertension Sister Polycystic kidney disease Sister Hypertension Brother Polycystic kidney disease Brother Family Status - Relation Status Age at Mother Father Sister Brother Normal [facility] Orders Onlyon 07-24-2023 Orders Only [id number] Khushi,Brand i 1975 F Date Provider Department Center 07/24/2023 1971-[facility] TXP None Family History Problem Relation Age of Onset Fibromyalgia Mother Heart disease Father Hypertension Sister Polycystic kidney disease Sister Hypertension Brother Polycystic kidney disease Brother Family Status - Relation Status Age at Mother Father Sister Brother Normal [facility] BASIC METABOLIC PANELon 07-06 Anion gap [Moles/Vol] 16 mmol/L Normal 7-20 [facility] Comment on above: Performed By: #### L [id number] ####[facility] ([facility])[address] [place] [address] Calcium [Mass/Vol] 9.7 mg/dL Normal 8.6-10.3 [facility] Comment on above: Performed By: #### L [id number] ####[facility] ([facility])[address] [place] [address] Chloride [Moles/Vol] 104 mmol/L Normal 98-107 [facility] Comment on above: Performed By: #### L [id number] ####[facility] ([facility])[address] [place] [address] CO2 [Moles/Vol] 23 mmol/L Normal 21-31 [facility] Comment on above: Performed By: #### L [id number] ####[facility] ([facility])[address] [place] [address] Creatinine [Mass/Vol] 1.18 mg/dL Normal 0.60-1.20 [facility] Comment on above: Performed By: #### L [id number] ####[facility] ([facility])[address] [place] [address] GLOMERULAR FILTRATION RATE ML/MIN/1.73 SQ M.PREDICTED 57.3 mL/min/1.73m*2 Low >60.0 [facility] Comment on above: Result Comment: The [facility]???s estimated glomerular filtration rate (eGFR) will no [...] By: #### L [id number] ####[facility] ([facility])[address] [place] [address] Glucose [Mass/Vol] 134 mg/dL High 70-100 [facility] Comment on above: Performed By: #### L [id number] ####[facility] ([facility])[address] [place] [address] Potassium [Moles/Vol] 3.5 mmol/L Normal 3.5-5.1 [facility] Comment on above: Performed By: #### L [id number] ####[facility] ([facility])[address] [place] [address] Sodium [Moles/Vol] 139 mmol/L Normal 136-145 [facility] Comment on above: Performed By: #### L [id number] ####[facility] ([facility])[address] [place] [address] Urea nitrogen [Mass/Vol] 16 mg/dL Normal 7-25 [facility] Comment on above: Performed By: #### L [id number] ####[facility] ([facility])[address] [place] [address] UREA NITROGEN/CREATININE (MASS RATIO) IN SER/PLAS 13.6 Normal [facility] Comment on above: Performed By: #### L [id number] ####[facility] ([facility])[address] [place] [address] CBC WITH AUTO DIFFERENTIALon 07-17-2023 Basophils (Bld) [#/Vol] 0.05 10*3/uL Normal 0.00-0.20 [facility] Comment on above: Performed By: #### L [id number] #### [facility] ([facility]) [address] [place] [address] Basophils/100 WBC (Bld) 0.6 % Normal 0.0-1.0 [facility] Comment on above: Performed By: #### L [id number] #### [facility] ([facility]) [address] [place] [address] Eosinophils (Bld) [#/Vol] 0.21 10*3/uL Normal 0.00-0.50 [facility] Comment on above: Performed By: #### L [id number] #### [facility] ([facility]) [address] [place] [address] Eosinophils/100 WBC (Bld) 2.7 % Normal 0.0-6.0 [facility] Comment on above: Performed By: #### L [id number] #### [facility] ([facility]) [address] [place] [address] Erythrocyte distribution width (RBC) [Ratio] 14.3 % Normal 11.5-15.0 [facility] Comment on above: Performed By: #### L [id number] #### [facility] ([facility]) [address] [place] [address] ERYTHROCYTE MEAN CORPUSCULAR HEMOGLOBIN CONCENTRATION (G/DL) BY AUTOMATED 32.6 g/dL Normal 32.0-35.0 [facility] Comment on above: Performed By: #### L [id number] #### [facility] ([facility]) [address] [place] [address] Hematocrit (Bld) [Volume fraction] 38.3 % Normal 36.0-48.0 [facility] Comment on above: Performed By: #### L [id number] #### [facility] ([facility]) [address] [place] [address] Hemoglobin (Bld) [Mass/Vol] 12.5 g/dL Normal 12.0-15.0 [facility] Comment on above: Performed By: #### L [id number] #### [facility] ([facility]) [address] [place] [address] Immature granulocytes (Bld) [#/Vol] 0.10 10*3/uL Normal 0.00-0.20 [facility] Comment on above: Performed By: #### L [id number] #### [facility] ([facility]) [address] [place] [address] Immature granulocytes/100 WBC (Bld) 1.3 % High 0.0-1.0 [facility] Comment on above: Performed By: #### L [id number] #### [facility] ([facility]) [address] [place] [address] Lymphocytes (Bld) [#/Vol] 1.37 10*3/uL Normal 1.20-4.00 [facility] Comment on above: Performed By: #### L [id number] #### [facility] ([facility]) [address] [place] [address] Lymphocytes/100 WBC (Bld) 17.4 % Low 20.0-45.0 [facility] Comment on above: Performed By: #### L [id number] #### [facility] ([facility]) [address] [place] [address] MCH (RBC) [Entitic mass] 28.9 pg Normal 27.0-33.0 [facility] Comment on above: Performed By: #### L [id number] #### [facility] ([facility]) [address] [place] [address] MCV (RBC) [Entitic vol] 88.5 fL Normal 82.0-98.0 [facility] Comment on above: Performed By: #### L [id number] #### [facility] ([facility]) [address] [place] [address] Monocytes (Bld) [#/Vol] 0.44 10*3/uL Normal 0.10-1.00 [facility] Comment on above: Performed By: #### L [id number] #### [facility] ([facility]) [address] [place] [address] Monocytes/100 WBC (Bld) 5.6 % Normal 5.0-12.0 [facility] Comment on above: Performed By: #### L [id number] #### [facility] ([facility]) [address] [address] Neutrophils (Bld) [#/Vol] 5.69 10*3/uL Normal 1.60-7.60 [facility] Comment on above: Performed By: #### L [id number] #### [facility] ([facility]) [address] [place] [address] Neutrophils/100 WBC (Bld) 72.4 % High 40.0-72.0 [facility] Comment on above: Performed By: #### L [id number] #### [facility] ([facility]) [address] [place] [address] NRBC (PER 100 WBCS) BY AUTOMATED COUNT 0.0 % Normal 0 [facility] Comment on above: Performed By: #### L [id number] #### [facility] ([facility]) [address] [place] [address] PLATELETS (10*3/UL) IN BLOOD AUTOMATED COUNT 349 10*3/uL Normal 150-400 [facility] Comment on above: Performed By: #### L [id number] #### [facility] ([facility]) [address] [place] [address] RBC (Bld) [#/Vol] 4.33 10*6/uL Normal 3.80-5.00 [facility] Comment on above: Performed By: #### L [id number] #### [facility] ([facility]) [address] [place] [address] WBC (Bld) [#/Vol] 7.86 10*3/uL Normal 4.00-10.60 [facility] Comment on above: Performed By: #### L [id number] #### [facility] ([facility]) [address] [place] [address] HEPATIC FUNCTION PANELon Albumin [Mass/Vol] 4.4 g/dL Normal 3.5-5.7 [facility] Comment on above: Performed By: #### L [id number] #### [facility] ([facility]) [address] [place] [address] ALP [Catalytic activity/Vol] 83 U/L Normal 34-104 [facility] Comment on above: Performed By: #### L [id number] #### [facility] ([facility]) [address] [place] [address] ALT [Catalytic activity/Vol] 25 U/L Normal 7-52 [facility] Comment on above: Performed By: #### L [id number] #### [facility] ([facility]) [address] [place] [address] AST [Catalytic activity/Vol] 21 U/L Normal 13-39 [facility] Comment on above: Performed By: #### L [id number] #### [facility] ([facility]) [address] [place] [address] Bilirubin [Mass/Vol] 0.4 mg/dL Normal 0.3-1.0 [facility] Comment on above: Performed By: #### L [id number] #### [facility] ([facility]) [address] [place] [address] Magnesium [Mass/Vol] 0.1 mg/dL Normal 0-0.2 [facility] Comment on above: Performed By: #### L [id number] #### [facility] ([facility]) [address] [place] [address] Protein [Mass/Vol] 7.3 g/dL Normal 6.0-8.3 [facility] Comment on above: Performed By: #### L [id number] #### [facility] ([facility]) [address] [place] [address] Labon 07-17-2023 Lab [id number] KhushiAntonio dougherty i 1975 Date Provider Department Center 07/17/2023 2245-[facility] OPD LAB RESOURCE [facility] OPD [facility] Family History Problem Relation Age of Onset Fibromyalgia Mother Heart disease Father Hypertension Sister Polycystic kidney disease Sister Hypertension Brother Polycystic kidney disease Brother Family Status - Relation Status Age at Mother Father Sister Brother Normal [facility] MAGNESIUMon 07-17-2023 Magnesium [Mass/Vol] 1.6 mg/dL Low 1.9-2.7 [facility] Comment on above: Performed By: #### L [id number] #### [facility] ([facility]) [address] [place] [address] Orders Onlyon 07-17-2023 Orders Only [id number] Khushi,Brand i 1975 Date Provider Department Center 07/17/2023 1971-[facility] TXP None Family History Problem Relation Age of Onset Fibromyalgia Mother Heart disease Father Hypertension Sister Polycystic kidney disease Sister Hypertension Brother Polycystic kidney disease Brother Family Status - Relation Status Age at Mother Father Sister Brother Normal [facility] PHOSPHORUSon 07-17-2023 Magnesium [Mass/Vol] 3.3 mg/dL Normal 2.5-5.0 [facility] Comment on above: Performed By: #### L [id number] #### [facility] TISSUE TYPING (HISTOTRAC) [address] [place] [address] [facility] TACROLIMUS LEVELon Tacrolimus (Bld) [Mass/Vol] 6.5 ng/mL Normal 5.0-20.0 [facility] Comment on above: Result Comment: The [employer] Tacrolimus assay is a delayed one-step immunoassay for the quantitative determination of tacrolimus in human whole blood using the chemiluminescent microparticle immunoassay (CMIA) technology with flexible assay protocols, referred to as Chemiflex. Performed By: #### L [id number] #### [facility] ([facility]) [address] [place] [address] URIC ACIDon 07-17-2023 Magnesium [Mass/Vol] 4.9 mg/dL Normal 2.3-6.6 [facility] Comment on above: Performed By: #### L [id number] #### [facility] ([facility]) [address] [place] [address] 29on 07-16-2023 29 Addended by: LU STEPHENS on: 07/16/2023 03:23 PM Modules accepted: Orders Normal [facility] Documentationon 07-16-2023 Documentation [id number] Antonio Puri i 1975 F Date Provider Department Center 07/16/2023 1971-[facility] TXP None Family History Problem Relation Age of Onset Fibromyalgia Mother Heart disease Father Hypertension Sister Polycystic kidney disease Sister Hypertension Brother Polycystic kidney disease Brother Family Status - Relation Status Age at Mother Father Sister Brother Reason for Visit and Comments: Kidney Follow-up [] Normal [facility] BASIC METABOLIC PANELon 06-07 Anion gap [Moles/Vol] 13 mmol/L Normal 7-20 [facility] Comment on above: Performed By: #### L [id number] #### [facility] ([facility]) [address] [place] [address] Calcium [Mass/Vol] 9.6 mg/dL Normal 8.6-10.3 [facility] Comment on above: Performed By: #### L [id number] #### [facility] ([facility]) [address] [place] [address] Chloride [Moles/Vol] 102 mmol/L Normal 98-107 [facility] Comment on above: Performed By: #### L [id number] #### [facility] ([facility]) [address] [place] [address] CO2 [Moles/Vol] 25 mmol/L Normal 21-31 [facility] Comment on above: Performed By: #### L [id number] #### [facility] ([facility]) [address] [place] [address] Creatinine [Mass/Vol] 1.26 mg/dL High 0.60-1.20 [facility] Comment on above: Performed By: #### L [id number] #### [facility] ([facility]) [address] [place] [address] GLOMERULAR FILTRATION RATE ML/MIN/1.73 SQ M.PREDICTED 53.0 mL/min/1.73m*2 Low >60.0 [facility] Comment on above: Result Comment: The [facility]???s estimated glomerular filtration rate (eGFR) will no [...] group of individuals. Performed By: #### L [id number] #### [facility] ([facility]) [address] [place] [address] Glucose [Mass/Vol] 128 mg/dL High 70-100 [facility] Comment on above: Performed By: #### L [id number] #### [facility] ([facility]) [address] [place] [address] Potassium [Moles/Vol] 3.1 mmol/L Low 3.5-5.1 [facility] Comment on above: Performed By: #### L [id number] #### [facility] ([facility]) [address] [place] [address] Sodium [Moles/Vol] 137 mmol/L Normal 136-145 [facility] Comment on above: Performed By: #### L [id number] #### [facility] ([facility]) [address] [place] [address] Urea nitrogen [Mass/Vol] 14 mg/dL Normal 7-25 [facility] Comment on above: Performed By: #### L [id number] #### [facility] ([facility]) [address] [place] [address] UREA NITROGEN/CREATININE (MASS RATIO) IN SER/PLAS 11.1 Normal [facility] Comment on above: Performed By: #### L [id number] #### [facility] ([facility]) [address] [place] [address] CBC WITH AUTO DIFFERENTIALon 06-28-2023 Basophils (Bld) [#/Vol] 0.06 10*3/uL Normal 0.00-0.20 [facility] Comment on above: Performed By: #### L [id number] ####[facility] ([facility])[address] [place] [address] Basophils/100 WBC (Bld) 0.6 % Normal 0.0-1.0 [facility] Comment on above: Performed By: #### L [id number] ####[facility] ([facility])[address] [place] [address] Eosinophils (Bld) [#/Vol] 0.18 10*3/uL Normal 0.00-0.50 [facility] Comment on above: Performed By: #### L [id number] ####[facility] ([facility])[address] [place] [address] Eosinophils/100 WBC (Bld) 1.8 % Normal 0.0-6.0 [facility] Comment on above: Performed By: #### L [id number] ####[facility] ([facility])[address] [place] [address] Erythrocyte distribution width (RBC) [Ratio] 14.5 % Normal 11.5-15.0 [facility] Comment on above: Performed By: #### L [id number] ####[facility] ([facility])[address] [address] ERYTHROCYTE MEAN CORPUSCULAR HEMOGLOBIN CONCENTRATION (G/DL) BY AUTOMATED 33.1 g/dL Normal 32.0-35.0 [facility] Comment on above: Performed By: #### L [id number] ####[facility] ([facility])[address] [place] [address] Hematocrit (Bld) [Volume fraction] 40.5 % Normal 36.0-48.0 [facility] Comment on above: Performed By: #### L [id number] ####[facility] ([facility])[address] [place] [address] Hemoglobin (Bld) [Mass/Vol] 13.4 g/dL Normal 12.0-15.0 [facility] Comment on above: Performed By: #### L [id number] ####[facility] ([facility])[address] [place] [address] Immature granulocytes (Bld) [#/Vol] 0.13 10*3/uL Normal 0.00-0.20 [facility] Comment on above: Performed By: #### L [id number] ####[facility] ([facility])[address] [place] [address] Immature granulocytes/100 WBC (Bld) 1.3 % High 0.0-1.0 [facility] Comment on above: Performed By: #### L [id number] ####[facility] ([facility])[address] [place] [address] Lymphocytes (Bld) [#/Vol] 1.30 10*3/uL Normal 1.20-4.00 [facility] Comment on above: Performed By: #### L [id number] ####[facility] ([facility])[address] [place] [address] Lymphocytes/100 WBC (Bld) 13.3 % Low 20.0-45.0 [facility] Comment on above: Performed By: #### L [id number] ####[facility] ([facility])[address] [place] [address] MCH (RBC) [Entitic mass] 29.2 pg Normal 27.0-33.0 [facility] Comment on above: Performed By: #### L [id number] ####[facility] ([facility])[address] [place] [address] MCV (RBC) [Entitic vol] 88.2 fL Normal 82.0-98.0 [facility] Comment on above: Performed By: #### L [id number] ####[facility] ([facility])[address] [place] [address] Monocytes (Bld) [#/Vol] 0.51 10*3/uL Normal 0.10-1.00 [facility] Comment on above: Performed By: #### L [id number] ####[facility] ([facility])[address] [place] [address] Monocytes/100 WBC (Bld) 5.2 % Normal 5.0-12.0 [facility] Comment on above: Performed By: #### L [id number] ####[facility] ([facility])[address] [place] [address] Neutrophils (Bld) [#/Vol] 7.62 10*3/uL High 1.60-7.60 [facility] Comment on above: Performed By: #### L [id number] ####[facility] ([facility])[address] [place] [address] Neutrophils/100 WBC (Bld) 77.8 % High 40.0-72.0 [facility] Comment on above: Performed By: #### L [id number] ####[facility] ([facility])[address] [place] [address] NRBC (PER 100 WBCS) BY AUTOMATED COUNT 0.0 % Normal 0 [facility] Comment on above: Performed By: #### L [id number] ####[facility] ([facility])[address] [place] [address] PLATELETS (10*3/UL) IN BLOOD AUTOMATED COUNT 334 10*3/uL Normal 150-400 [facility] Comment on above: Performed By: #### L [id number] ####[facility] ([facility])[address] [place] [address] RBC (Bld) [#/Vol] 4.59 10*6/uL Normal 3.80-5.00 [facility] Comment on above: Performed By: #### L [id number] ####[facility] ([facility])[address] [place] [address] WBC (Bld) [#/Vol] 9.80 10*3/uL Normal 4.00-10.60 [facility] Comment on above: Performed By: #### L [id number] ####[facility] ([facility])[address] [place] [address] HEPATIC FUNCTION PANELon Albumin [Mass/Vol] 4.7 g/dL Normal 3.5-5.7 [facility] Comment on above: Performed By: #### L [id number] #### [facility] ([facility]) [address] [place] [address] ALP [Catalytic activity/Vol] 91 U/L Normal 34-104 [facility] Comment on above: Performed By: #### L [id number] #### [facility] ([facility]) [address] [place] [address] ALT [Catalytic activity/Vol] 29 U/L Normal 7-52 [facility] Comment on above: Performed By: #### L [id number] #### [facility] ([facility]) [address] [place] [address] AST [Catalytic activity/Vol] 25 U/L Normal 13-39 [facility] Comment on above: Performed By: #### L [id number] #### [facility] ([facility]) [address] [place] [address] Bilirubin [Mass/Vol] 0.5 mg/dL Normal 0.3-1.0 [facility] Comment on above: Performed By: #### L [id number] #### [facility] ([facility]) [address] [place] [address] Magnesium [Mass/Vol] 0.1 mg/dL Normal 0-0.2 [facility] Comment on above: Performed By: #### L [id number] #### [facility] ([facility]) [address] [place] [address] Protein [Mass/Vol] 7.9 g/dL Normal 6.0-8.3 [facility] Comment on above: Performed By: #### L [id number] #### [facility] ([facility]) [address] [place] [address] LIPID PANELon 06-28-2023 CHOL/HDL 4.1 mg/dL Normal [facility] Comment on above: Performed By: #### L [id number] #### [facility] ([facility]) [address] [place] [address] Cholesterol [Mass/Vol] 192 mg/dL Normal 120-200 [facility] Comment on above: Performed By: #### L [id number] #### [facility] ([facility]) [address] [place] [address] Magnesium [Mass/Vol] 228 mg/dL High 40-149 [facility] Comment on above: Result Comment: TRIG LYCERIDE REFERENCE RANGE: 20 YEARS AND OLDER CARDIOVASCULAR RISK LESS THAN 150 mg/dL LOW RISK 150 TO 199 mg/dL BORDERLINE RISK 200 mg/dL AND GREATER HIGH RISK Performed By: #### L [id number] #### [facility] ([facility]) [address] [place] [address] Magnesium [Mass/Vol] 99 mg/dL Normal 0-160 [facility] Comment on above: Performed By: #### L [id number] #### [facility] ([facility]) [address] [place] [address] Magnesium [Mass/Vol] 47 mg/dL Normal 23-92 [facility] Comment on above: Performed By: #### L [id number] #### [facility] ([facility]) [address] [place] [address] NON HDL CHOL. (LDL+VLDL) 145 Normal [facility] Comment on above: Performed By: #### L [id number] #### [facility] ([facility]) [address] [place] [address] TOTAL VLDL-C 46 mg/dL High 0-40 [facility] Comment on above: Performed By: #### L [id number] #### [facility] ([facility]) [address] [place] [address] Labon 06-28-2023 Lab [id number] Antonio Puri i 1975 F Date Provider Department Center 06/28/2023 2245-[facility] OPD LAB RESOURCE [facility] OPD [facility] Family History Problem Relation Age of Onset Fibromyalgia Mother Heart disease Father Hypertension Sister Polycystic kidney disease Sister Hypertension Brother Polycystic kidney disease Brother Family Status - Relation Status Age at Mother Father Sister Brother Normal [facility] MAGNESIUMon 06-28-2023 Magnesium [Mass/Vol] 1.4 mg/dL Low 1.9-2.7 [facility] Comment on above: Performed By: #### L [id number] ####[facility] ([facility])[address] [place] [address] PHOSPHORUSon 06-28-2023 Magnesium [Mass/Vol] 2.7 mg/dL Normal 2.5-5.0 [facility] Comment on above: Performed By: #### L [id number] ####[facility] ([facility])[address] [place] [address] TACROLIMUS LEVELon Tacrolimus (Bld) [Mass/Vol] 6.9 ng/mL Normal 5.0-20.0 [facility] Comment on above: Result Comment: The [employer] Tacrolimus assay is a delayed one-step immunoassay for the quantitative determination of tacrolimus in human whole blood using the chemiluminescent microparticle immunoassay (CMIA) technology with flexible assay protocols, referred to as Chemiflex. Performed By: #### L [id number] #### [facility] TISSUE TYPING (HISTOTRAC) [address] [place] [address] [place] URIC ACIDon 06-28-2023 Magnesium [Mass/Vol] 5.0 mg/dL Normal 2.3-6.6 [facility] Comment on above: Performed By: #### L [id number] #### [facility] ([facility]) [address] [place] [address] 36on 06-23-2023 36 I reviewed the case with the resident. I agree with the assessment and plan as documented in the resident's note. Ming Kidd, PharmD, BCTXP Normal [facility] Telephoneon 06-17-2023 Telephone [id number] Antonio Puri i 1975 F Date Provider Department Center 06/17/2023 LIAM CREWS TXP None Family History Problem Relation Age of Onset Fibromyalgia Mother Heart disease Father Hypertension Sister Polycystic kidney disease Sister Hypertension Brother Polycystic kidney disease Brother Family Status - Relation Status Age at Mother Father Sister Brother Reason for Visit and Comments: Transplant Pharmacist - Drug Information [[id number]] Normal [facility] BASIC METABOLIC PANELon 08-2 Anion gap [Moles/Vol] 13 mmol/L Normal 7-20 [facility] Comment on above: Performed By: #### L [id number] ####[facility] ([facility])[address] [place] [address] Calcium [Mass/Vol] 9.5 mg/dL Normal 8.6-10.3 [facility] Comment on above: Performed By: #### L [id number] ####[facility] ([facility])[address] [place] [address] Chloride [Moles/Vol] 101 mmol/L Normal 98-107 [facility] Comment on above: Performed By: #### L [id number] ####[facility] ([facility])[address] [place] [address] CO2 [Moles/Vol] 27 mmol/L Normal 21-31 [facility] Comment on above: Performed By: #### L [id number] ####[facility] ([facility])[address] [place] [address] Creatinine [Mass/Vol] 1.28 mg/dL High 0.60-1.20 [facility] Comment on above: Performed By: #### L [id number] ####[facility] ([facility])[address] [place] [address] GLOMERULAR FILTRATION RATE ML/MIN/1.73 SQ M.PREDICTED 52.0 mL/min/1.73m*2 Low >60.0 [facility] Comment on above: Result Comment: The [facility]???s estimated glomerular filtration rate (eGFR) will no [...] By: #### L [id number] ####[facility] ([facility])[address] [place] [address] Glucose [Mass/Vol] 163 mg/dL High 70-100 [facility] Comment on above: Performed By: #### L [id number] ####[facility] ([facility])[address] [place] [address] Potassium [Moles/Vol] 3.1 mmol/L Low 3.5-5.1 [facility] Comment on above: Performed By: #### L [id number] ####[facility] ([facility])[address] [place] [address] Sodium [Moles/Vol] 138 mmol/L Normal 136-145 [facility] Comment on above: Performed By: #### L [id number] ####[facility] ([facility])[address] [place] [address] Urea nitrogen [Mass/Vol] 18 mg/dL Normal 7-25 [facility] Comment on above: Performed By: #### L [id number] ####[facility] ([facility])[address] [place] [address] UREA NITROGEN/CREATININE (MASS RATIO) IN SER/PLAS 14.1 Normal [facility] Comment on above: Performed By: #### L [id number] ####[facility] ([facility])[address] [place] [address] CBC WITH AUTO DIFFERENTIALon 05-29-2023 Basophils (Bld) [#/Vol] 0.06 10*3/uL Normal 0.00-0.20 [facility] Comment on above: Performed By: #### L [id number] ####[facility] ([facility])[address] [place] [address] Basophils/100 WBC (Bld) 0.6 % Normal 0.0-1.0 [facility] Comment on above: Performed By: #### L [id number] ####[facility] ([facility])[address] [place] [address] Eosinophils (Bld) [#/Vol] 0.18 10*3/uL Normal 0.00-0.50 [facility] Comment on above: Performed By: #### L [id number] ####[facility] ([facility])[address] [place] [address] Eosinophils/100 WBC (Bld) 1.9 % Normal 0.0-6.0 [facility] Comment on above: Performed By: #### L [id number] ####[facility] ([facility])[address] [place] [address] Erythrocyte distribution width (RBC) [Ratio] 14.3 % Normal 11.5-15.0 [facility] Comment on above: Performed By: #### L [id number] ####[facility] ([facility])[address] [place] [address] ERYTHROCYTE MEAN CORPUSCULAR HEMOGLOBIN CONCENTRATION (G/DL) BY AUTOMATED 32.4 g/dL Normal 32.0-35.0 [facility] Comment on above: Performed By: #### L [id number] ####[facility] [facility] (BEAKER)[address] [place] [address] Hematocrit (Bld) [Volume fraction] 37.4 % Normal 36.0-48.0 [facility] Comment on above: Performed By: #### L [id number] ####[facility] (BEAKER)[address] [place] [address] Hemoglobin (Bld) [Mass/Vol] 12.1 g/dL Normal 12.0-15.0 [facility] Comment on above: Performed By: #### L [id number] ####[facility] (BEAKER)[address] [place] [address] Immature granulocytes (Bld) [#/Vol] 0.17 10*3/uL Normal 0.00-0.20 [facility] Comment on above: Performed By: #### L [id number] ####[facility] (BEAKER)[address] [place] [address] Immature granulocytes/100 WBC (Bld) 1.8 % High 0.0-1.0 [facility] Comment on above: Performed By: #### L [id number] ####[facility] (BEAKER)[address] [place] [address] Lymphocytes (Bld) [#/Vol] 1.30 10*3/uL Normal 1.20-4.00 [facility] Comment on above: Performed By: #### L [id number] ####[facility] (BEAKER)[address] [place] [address] Lymphocytes/100 WBC (Bld) 13.4 % Low 20.0-45.0 [facility] Comment on above: Performed By: #### L [id number] ####[facility] (BEAKER)[address] [place] [address] MCH (RBC) [Entitic mass] 28.8 pg Normal 27.0-33.0 [facility] Comment on above: Performed By: #### L [id number] ####[facility] (BEAKER)[address] [place] [address] MCV (RBC) [Entitic vol] 89.0 fL Normal 82.0-98.0 [facility] Comment on above: Performed By: #### L [id number] ####[facility] (BEAKER)[address] [place] [address] Monocytes (Bld) [#/Vol] 0.56 10*3/uL Normal 0.10-1.00 [facility] Comment on above: Performed By: #### L [id number] ####[facility] ([facility])[address] [place] [address] Monocytes/100 WBC (Bld) 5.8 % Normal 5.0-12.0 [facility] Comment on above: Performed By: #### L [id number] ####[facility] (BEAKER)[address] [place] [address] Neutrophils (Bld) [#/Vol] 7.43 10*3/uL Normal 1.60-7.60 [facility] Comment on above: Performed By: #### L [id number] ####[facility] (BEAKER)[address] [place] [address] Neutrophils/100 WBC (Bld) 76.5 % High 40.0-72.0 [facility] Comment on above: Performed By: #### L [id number] ####[facility] (BEAKER)[address] [place] [address] NRBC (PER 100 WBCS) BY AUTOMATED COUNT 0.0 % Normal 0 [facility] Comment on above: Performed By: #### L [id number] ####[facility] (BEAKER)[address] [place] [address] PLATELETS (10*3/UL) IN BLOOD AUTOMATED COUNT 331 10*3/uL Normal 150-400 [facility] Comment on above: Performed By: #### L [id number] ####[facility] ([facility])[address] [place] [address] RBC (Bld) [#/Vol] 4.20 10*6/uL Normal 3.80-5.00 [facility] Comment on above: Performed By: #### L [id number] ####[facility] ([facility])[address] [place] [address] WBC (Bld) [#/Vol] 9.70 10*3/uL Normal 4.00-10.60 [facility] Comment on above: Performed By: #### L [id number] ####[facility] ([facility])[address] [place] [address] HEPATIC FUNCTION PANELon Albumin [Mass/Vol] 4.5 g/dL Normal 3.5-5.7 [facility] Comment on above: Performed By: #### L [id number] ####[facility] ([facility])[address] [place] [address] ALP [Catalytic activity/Vol] 87 U/L Normal 34-104 [facility] Comment on above: Performed By: #### L [id number] ####[facility] ([facility])[address] [place] [address] ALT [Catalytic activity/Vol] 29 U/L Normal 7-52 [facility] Comment on above: Performed By: #### L [id number] ####[facility] ([facility])[address] [place] [address] AST [Catalytic activity/Vol] 24 U/L Normal 13-39 [facility] Comment on above: Performed By: #### L [id number] ####[facility] (BEAKER)[address] [place] [address] Bilirubin [Mass/Vol] 0.4 mg/dL Normal 0.3-1.0 [facility] Comment on above: Performed By: #### L [id number] ####[facility] ([facility])[address] [place] [address] Magnesium [Mass/Vol] 0.0 mg/dL Normal 0-0.2 [facility] Comment on above: Performed By: #### L [id number] ####[facility] ([facility])[address] [place] [address] Protein [Mass/Vol] 7.4 g/dL Normal 6.0-8.3 [facility] Comment on above: Performed By: #### L [id number] ####[facility] ([facility])[address] [place] [address] Labon 05-29-2023 Lab [id number] Antonio Puri i 1975 F Date Provider Department Center 05/29/2023 2245-[facility] OPD LAB RESOURCE [facility] Family History Problem Relation Age of Onset Fibromyalgia Mother Heart disease Father Hypertension Sister Polycystic kidney disease Sister Hypertension Brother Polycystic kidney disease Brother Family Status - Relation Status Age at Mother Father Sister Brother Normal [facility] MAGNESIUMon 05-29-2023 Magnesium [Mass/Vol] 1.7 mg/dL Low 1.9-2.7 [facility] Comment on above: Performed By: #### L [id number] #### [facility] ([facility]) [address] [place] [address] PHOSPHORUSon 05-29-2023 Magnesium [Mass/Vol] 2.8 mg/dL Normal 2.5-5.0 [facility] Comment on above: Performed By: #### L [id number] ####[facility] ([facility])[address] [place] [address] TACROLIMUS LEVELon Tacrolimus (Bld) [Mass/Vol] 5.6 ng/mL Normal 5.0-20.0 [facility] Comment on above: Result Comment: The [employer] Tacrolimus assay is a delayed one-step immunoassay for the quantitative determination of tacrolimus in human whole blood using the chemiluminescent microparticle immunoassay (CMIA) technology with flexible assay protocols, referred to as Chemiflex. Performed By: #### L [id number] #### [facility] ([facility]) [address] [place] [address] URIC ACIDon 05-29-2023 Magnesium [Mass/Vol] 5.0 mg/dL Normal 2.3-6.6 [facility] Comment on above: Performed By: #### L [id number] ####[facility] ([facility])[address] [place] [address] BASIC METABOLIC PANELon 04-06 Anion gap [Moles/Vol] 13 mmol/L Normal 7-20 [facility] Comment on above: Performed By: #### L [id number] #### [facility] ([facility]) [address] [place] [address] Calcium [Mass/Vol] 9.5 mg/dL Normal 8.6-10.3 [facility] Comment on above: Performed By: #### L [id number] #### [facility] ([facility]) [address] [place] [address] Chloride [Moles/Vol] 104 mmol/L Normal 98-107 [facility] Comment on above: Performed By: #### L [id number] #### [facility] ([facility]) [address] [place] [address] CO2 [Moles/Vol] 22 mmol/L Normal 21-31 [facility] Comment on above: Performed By: #### L [id number] #### [facility] ([facility]) [address] [place] [address] Creatinine [Mass/Vol] 1.25 mg/dL High 0.60-1.20 [facility] Comment on above: Performed By: #### L [id number] #### [facility] ([facility]) [address] [place] [address] GLOMERULAR FILTRATION RATE ML/MIN/1.73 SQ M.PREDICTED 53.5 mL/min/1.73m*2 Low >60.0 [facility] Comment on above: Result Comment: The [facility]???s estimated glomerular filtration rate (eGFR) will no [...] individuals. Performed By: #### L [id number] #### [facility] ([facility]) [address] [place] [address] Glucose [Mass/Vol] 189 mg/dL High 70-100 [facility] Comment on above: Performed By: #### L [id number] #### [facility] ([facility]) [address] [place] [address] Potassium [Moles/Vol] 4.0 mmol/L Normal 3.5-5.1 [facility] Comment on above: Performed By: #### L [id number] #### [facility] ([facility]) [address] [place] [address] Sodium [Moles/Vol] 135 mmol/L Low 136-145 [facility] Comment on above: Performed By: #### L [id number] #### [facility] ([facility]) [address] [place] [address] Urea nitrogen [Mass/Vol] 19 mg/dL Normal 7-25 [facility] Comment on above: Performed By: #### L [id number] #### [facility] ([facility]) [address] [place] [address] UREA NITROGEN/CREATININE (MASS RATIO) IN SER/PLAS 15.2 Normal [facility] Comment on above: Performed By: #### L [id number] #### [facility] ([facility]) [address] [place] [address] CBC WITH AUTO DIFFERENTIALon 04-30-2023 Basophils (Bld) [#/Vol] 0.05 10*3/uL Normal 0.00-0.20 [facility] Comment on above: Performed By: #### L [id number] #### [facility] (BEAKER) [address] [place] [address] Basophils/100 WBC (Bld) 0.7 % Normal 0.0-1.0 [facility] Comment on above: Performed By: #### L [id number] #### [facility] (BEAKER) [address] [place] [address] Eosinophils (Bld) [#/Vol] 0.16 10*3/uL Normal 0.00-0.50 [facility] Comment on above: Performed By: #### L [id number] #### [facility] ([facility]) [address] [place] [address] Eosinophils/100 WBC (Bld) 2.1 % Normal 0.0-6.0 [facility] Comment on above: Performed By: #### L [id number] #### [facility] ([facility]) [address] [place] [address] Erythrocyte distribution width (RBC) [Ratio] 14.3 % Normal 11.5-15.0 [facility] Comment on above: Performed By: #### L [id number] #### [facility] ([facility]) [address] [place] [address] ERYTHROCYTE MEAN CORPUSCULAR HEMOGLOBIN CONCENTRATION (G/DL) BY AUTOMATED 33.1 g/dL Normal 32.0-35.0 [facility] Comment on above: Performed By: #### L [id number] #### [facility] ([facility]) [address] [place] [address] Hematocrit (Bld) [Volume fraction] 35.9 % Low 36.0-48.0 [facility] Comment on above: Performed By: #### L [id number] #### [facility] (BEAKER) [address] [place] [address] Hemoglobin (Bld) [Mass/Vol] 11.9 g/dL Low 12.0-15.0 [facility] Comment on above: Performed By: #### L [id number] #### [facility] (BEAKER) [address] [place] [address] Immature granulocytes (Bld) [#/Vol] 0.12 10*3/uL Normal 0.00-0.20 [facility] Comment on above: Performed By: #### L [id number] #### [facility] ([facility]) [address] [place] [address] Immature granulocytes/100 WBC (Bld) 1.6 % High 0.0-1.0 [facility] Comment on above: Performed By: #### L [id number] #### [facility] ([facility]) [address] [place] [address] Lymphocytes (Bld) [#/Vol] 1.30 10*3/uL Normal 1.20-4.00 [facility] Comment on above: Performed By: #### L [id number] #### [facility] ([facility]) [address] [place] [address] Lymphocytes/100 WBC (Bld) 16.9 % Low 20.0-45.0 [facility] Comment on above: Performed By: #### L [id number] #### [facility] ([facility]) [address] [place] [address] MCH (RBC) [Entitic mass] 29.6 pg Normal 27.0-33.0 [facility] Comment on above: Performed By: #### L [id number] #### [facility] ([facility]) [address] [place] [address] MCV (RBC) [Entitic vol] 89.3 fL Normal 82.0-98.0 [facility] Comment on above: Performed By: #### L [id number] #### [facility] ([facility]) [address] [place] [address] Monocytes (Bld) [#/Vol] 0.46 10*3/uL Normal 0.10-1.00 [facility] Comment on above: Performed By: #### L [id number] #### [facility] ([facility]) [address] [place] [address] Monocytes/100 WBC (Bld) 6.0 % Normal 5.0-12.0 [facility] Comment on above: Performed By: #### L [id number] #### [facility] ([facility]) [address] [place] [address] Neutrophils (Bld) [#/Vol] 5.58 10*3/uL Normal 1.60-7.60 [facility] Comment on above: Performed By: #### L [id number] #### [facility] ([facility]) [address] [place] [address] Neutrophils/100 WBC (Bld) 72.7 % High 40.0-72.0 [facility] Comment on above: Performed By: #### L [id number] #### [facility] ([facility]) [address] [place] [address] NRBC (PER 100 WBCS) BY AUTOMATED COUNT 0.0 % Normal 0 [facility] Comment on above: Performed By: #### L [id number] #### [facility] ([facility]) [address] [place] [address] PLATELETS (10*3/UL) IN BLOOD AUTOMATED COUNT 295 10*3/uL Normal 150-400 [facility] Comment on above: Performed By: #### L [id number] #### [facility] ([facility]) [address] [place] [address] RBC (Bld) [#/Vol] 4.02 10*6/uL Normal 3.80-5.00 [facility] Comment on above: Performed By: #### L [id number] #### [facility] ([facility]) [address] [place] [address] WBC (Bld) [#/Vol] 7.67 10*3/uL Normal 4.00-10.60 [facility] Comment on above: Performed By: #### L [id number] #### [facility] ([facility]) [address] [place] [address] HEPATIC FUNCTION PANELon Albumin [Mass/Vol] 4.6 g/dL Normal 3.5-5.7 [facility] Comment on above: Performed By: #### L [id number] ####[facility] ([facility])[address] [place] [address] ALP [Catalytic activity/Vol] 82 U/L Normal 34-104 [facility] Comment on above: Performed By: #### L [id number] ####[facility] ([facility])[address] [place] [address] ALT [Catalytic activity/Vol] 25 U/L Normal 7-52 [facility] Comment on above: Performed By: #### L [id number] ####[facility] ([facility])[address] [place] [address] AST [Catalytic activity/Vol] 19 U/L Normal 13-39 [facility] Comment on above: Performed By: #### L [id number] ####[facility] ([facility])[address] [place] [address] Bilirubin [Mass/Vol] 0.5 mg/dL Normal 0.3-1.0 [facility] Comment on above: Performed By: #### L [id number] ####[facility] ([facility])[address] [place] [address] Magnesium [Mass/Vol] 0.1 mg/dL Normal 0-0.2 [facility] Comment on above: Performed By: #### L [id number] ####[facility] ([facility])[address] [place] [address] Protein [Mass/Vol] 7.2 g/dL Normal 6.0-8.3 [facility] Comment on above: Performed By: #### L [id number] ####[facility] ([facility])[address] [place] [address] Labon 04-30-2023 Lab [id number] Antonio Puri i 1975 F Date Provider Department Center 04/30/2023 2245-[facility] OPD LAB RESOURCE [facility] Family History Problem Relation Age of Onset Fibromyalgia Mother Heart disease Father Hypertension Sister Polycystic kidney disease Sister Hypertension Brother Polycystic kidney disease Brother Family Status - Relation Status Age at Mother Father Sister Brother Normal [facility] MAGNESIUMon 04-30-2023 Magnesium [Mass/Vol] 1.6 mg/dL Low 1.9-2.7 [facility] Comment on above: Performed By: #### L [id number] #### [facility] ([facility]) [address] [place] [address] PANEL REACTIVE ANTIBODYon HOLD SPECIMEN Hold for add-ons. Normal [facility] Comment on above: Result Comment: Auto resulted. Performed By: #### L [id number] #### [facility] ([facility]) [address] [place] [address] PHOSPHORUSon 04-30-2023 Magnesium [Mass/Vol] 2.3 mg/dL Low 2.5-5.0 [facility] Comment on above: Performed By: #### L [id number] #### [facility] ([facility]) [address] [place] [address] SINGLE ANTIGEN CLASS Ion AB SCREEN COMMENTS No Class I donor spe cific antibody identified Normal [facility] Comment on above: Performed By: #### L [id number] #### [facility] ([facility]) [address] [place] [address] CLASS I TESTED DATE Normal [facility] Comment on above: Performed By: #### L [id number] #### [facility] ([facility]) [address] [place] [address] SIGNED BY Signed by Nelson escamilla CHT([facility]) MT([facility]), Applications Instructor Transplant Immunology Normal [facility] Comment on above: Result Comment: Clas s I Antigen Microbeads Performed By: #### L [id number] #### [facility] ([facility]) [address] [place] [address] SINGLE ANTIGEN CLASS 1 TEST METHOD Class I Single Antigen Normal [facility] Comment on above: Performed By: #### L [id number] #### [facility] ([facility]) [address] [place] [address] SINGLE ANTIGEN CLASS IIon AB SCREEN COMMENTS No Class II donor specific antibody identified Normal [facility] Comment on above: Performed By: #### L [id number] #### [facility] ([facility]) [address] [place] [address] CLASS II TESTED DATE [id number] Normal [facility] Comment on above: Performed By: #### L [id number] #### [facility] ([facility]) [address] [place] [address] SINGLE ANTIGEN CLASS 2 TEST METHOD Class II Single Antigen Normal [facility] Comment on above: Result Comment: Clas s II Antigen Microbeads Performed By: #### L [id number] #### [facility] ([facility]) [address] [place] [address] TACROLIMUS LEVELon Tacrolimus (Bld) [Mass/Vol] 9.3 ng/mL Normal 5.0-20.0 [facility] Comment on above: Result Comment: The [employer] Tacrolimus assay is a delayed one-step immunoassay for the quantitative determination of tacrolimus in human whole blood using the chemiluminescent microparticle immunoassay (CMIA) technology with flexible assay protocols, referred to as Chemiflex. Performed By: #### L [id number] ####[facility] ([facility])[address] [place] [address] URIC ACIDon 04-30-2023 Magnesium [Mass/Vol] 4.9 mg/dL Normal 2.3-6.6 [facility] Comment on above: Performed By: #### L [id number] #### [facility] ([facility]) [address] [place] [address] Follow-Upon 04-16-2023 Follow-Up [id number] Antonio Puri i 1975 F Date Provider Department Center 04/16/2023 [id number], SUJIT TXP None Family History Problem Relation Age of Onset Fibromyalgia Mother Heart disease Father Hypertension Sister Polycystic kidney disease Sister Hypertension Brother Polycystic kidney disease Brother Family Status - Relation Status Age at Mother Father Sister Brother Level of Service:21390 [place] OFFICE/OUTPATIENT ESTABLISHED MOD MDM 30-39 MIN Reason for Visit and Comments: Kidney Follow-up [] - Patient has concerns of feeling worse, increased urinating, issues with the prednisone, angry Normal [facility] BASIC METABOLIC PANELon 06-2 Anion gap [Moles/Vol] 14 mmol/L Normal 7-20 [facility] Comment on above: Performed By: #### L [id number] #### [facility] ([facility]) [address] [place] [address] Calcium [Mass/Vol] 9.4 mg/dL Normal 8.6-10.3 [facility] Comment on above: Performed By: #### L [id number] #### [facility] ([facility]) [address] [place] [address] Chloride [Moles/Vol] 104 mmol/L Normal 98-107 [facility] Comment on above: Performed By: #### L [id number] #### [facility] ([facility]) [address] [place] [address] CO2 [Moles/Vol] 24 mmol/L Normal 21-31 [facility] Comment on above: Performed By: #### L [id number] #### [facility] ([facility]) [address] [place] [address] Creatinine [Mass/Vol] 1.26 mg/dL High 0.60-1.20 [facility] Comment on above: Performed By: #### L [id number] #### [facility] ([facility]) [address] [place] [address] GLOMERULAR FILTRATION RATE ML/MIN/1.73 SQ M.PREDICTED 53.0 mL/min/1.73m*2 Low >60.0 [facility] Comment on above: Result Comment: The [facility]???s estimated glomerular filtration rate (eGFR) will no [...] group of individuals. Performed By: #### L [id number] #### [facility] ([facility]) [address] [place] [address] Glucose [Mass/Vol] 155 mg/dL High 70-100 [facility] Comment on above: Performed By: #### L [id number] #### [facility] ([facility] [facility] [address] [place] [address] Potassium [Moles/Vol] 3.6 mmol/L Normal 3.5-5.1 [facility] Comment on above: Performed By: #### L [id number] #### [facility] ([facility]) [address] [place] [address] Sodium [Moles/Vol] 138 mmol/L Normal 136-145 [facility] Comment on above: Performed By: #### L [id number] #### [facility] ([facility]) [address] [place] [address] Urea nitrogen [Mass/Vol] 19 mg/dL Normal 7-25 [facility] Comment on above: Performed By: #### L [id number] #### [facility] ([facility]) [address] [place] [address] UREA NITROGEN/CREATININE (MASS RATIO) IN SER/PLAS 15.1 Normal [facility] Comment on above: Performed By: #### L [id number] #### [facility] ([facility]) [address] [place] [address] CBC WITH AUTO DIFFERENTIALon 03-31-2023 Basophils (Bld) [#/Vol] 0.07 10*3/uL Normal 0.00-0.20 [facility] Comment on above: Performed By: #### L [id number] ####[facility] ([facility])[address] [place] [address] Basophils/100 WBC (Bld) 0.9 % Normal 0.0-1.0 [facility] Comment on above: Performed By: #### L [id number] ####[facility] ([facility])[address] [place] [address] Eosinophils (Bld) [#/Vol] 0.22 10*3/uL Normal 0.00-0.50 [facility] Comment on above: Performed By: #### L [id number] ####[facility] ([facility])[address] [place] [address] Eosinophils/100 WBC (Bld) 2.9 % Normal 0.0-6.0 [facility] Comment on above: Performed By: #### L [id number] ####[facility] ([facility])[address] [place] [address] Erythrocyte distribution width (RBC) [Ratio] 14.0 % Normal 11.5-15.0 [facility] Comment on above: Performed By: #### L [id number] ####[facility] ([facility])[address] [place] [address] ERYTHROCYTE MEAN CORPUSCULAR HEMOGLOBIN CONCENTRATION (G/DL) BY AUTOMATED 32.1 g/dL Normal 32.0-35.0 [facility] Comment on above: Performed By: #### L [id number] ####[facility] ([facility])[address] [place] [address] Hematocrit (Bld) [Volume fraction] 36.5 % Normal 36.0-48.0 [facility] Comment on above: Performed By: #### L [id number] ####[facility] ([facility])[address] [place] [address] Hemoglobin (Bld) [Mass/Vol] 11.7 g/dL Low 12.0-15.0 [facility] Comment on above: Performed By: #### L [id number] ####[facility] ([facility])[address] [place] [address] Immature granulocytes (Bld) [#/Vol] 0.19 10*3/uL Normal 0.00-0.20 [facility] Comment on above: Performed By: #### L [id number] ####[facility] ([facility])[address] [place] [address] Immature granulocytes/100 WBC (Bld) 2.5 % High 0.0-1.0 [facility] Comment on above: Performed By: #### L [id number] ####[facility] ([facility])[address] [place] [address] Lymphocytes (Bld) [#/Vol] 1.44 10*3/uL Normal 1.20-4.00 [facility] Comment on above: Performed By: #### L [id number] ####[facility] ([facility])[address] [place] [address] Lymphocytes/100 WBC (Bld) 19.0 % Low 20.0-45.0 [facility] Comment on above: Performed By: #### L [id number] ####[facility] ([facility])[address] [place] [address] MCH (RBC) [Entitic mass] 29.5 pg Normal 27.0-33.0 [facility] Comment on above: Performed By: #### L [id number] ####[facility] ([facility])[address] [place] [address] MCV (RBC) [Entitic vol] 91.9 fL Normal 82.0-98.0 [facility] Comment on above: Performed By: #### L [id number] ####[facility] ([facility])[address] [place] [address] Monocytes (Bld) [#/Vol] 0.54 10*3/uL Normal 0.10-1.00 [facility] Comment on above: Performed By: #### L [id number] ####[facility] ([facility])[address] [place] [address] Monocytes/100 WBC (Bld) 7.1 % Normal 5.0-12.0 [facility] Comment on above: Performed By: #### L [id number] ####[facility] ([facility])[address] [place] [address] Neutrophils (Bld) [#/Vol] 5.12 10*3/uL Normal 1.60-7.60 [facility] Comment on above: Performed By: #### L [id number] ####[facility] ([facility])[address] [place] [address] Neutrophils/100 WBC (Bld) 67.6 % Normal 40.0-72.0 [facility] Comment on above: Performed By: #### L [id number] ####[facility] ([facility])[address] [place] [address] NRBC (PER 100 WBCS) BY AUTOMATED COUNT 0.0 % Normal 0 [facility] Comment on above: Performed By: #### L [id number] ####[facility] ([facility])[address] [place] [address] PLATELETS (10*3/UL) IN BLOOD AUTOMATED COUNT 274 10*3/uL Normal 150-400 [facility] Comment on above: Performed By: #### L [id number] ####[facility] ([facility])[address] [place] [address] RBC (Bld) [#/Vol] 3.97 10*6/uL Normal 3.80-5.00 [facility] Comment on above: Performed By: #### L [id number] ####[facility] ([facility])[address] [place] [address] WBC (Bld) [#/Vol] 7.58 10*3/uL Normal 4.00-10.60 [facility] Comment on above: Performed By: #### L [id number] ####[facility] ([facility])[address] [place] [address] HEPATIC FUNCTION PANELon 06- 26-2023 Albumin [Mass/Vol] 4.4 g/dL Normal 3.5-5.7 [facility] Comment on above: Performed By: #### L [id number] ####[facility] ([facility])[address] [place] [address] ALP [Catalytic activity/Vol] 80 U/L Normal 34-104 [facility] Comment on above: Performed By: #### L [id number] ####[facility] ([facility])[address] [place] [address] ALT [Catalytic activity/Vol] 19 U/L Normal 7-52 [facility] Comment on above: Performed By: #### L [id number] ####[facility] ([facility])[address] [place] [address] AST [Catalytic activity/Vol] 17 U/L Normal 13-39 [facility] Comment on above: Performed By: #### L [id number] ####[facility] ([facility])[address] [place] [address] Bilirubin [Mass/Vol] 0.4 mg/dL Normal 0.3-1.0 [facility] Comment on above: Performed By: #### L [id number] ####[facility] ([facility])[address] [place] [address] Magnesium [Mass/Vol] 0.1 mg/dL Normal 0-0.2 [facility] Comment on above: Performed By: #### L [id number] ####[facility] ([facility])[address] [place] [address] Protein [Mass/Vol] 7.4 g/dL Normal 6.0-8.3 [facility] Comment on above: Performed By: #### L [id number] ####[facility] ([facility])[address] [place] [address] LIPID PANELon 03-31-2023 CHOL/HDL 4.9 mg/dL Normal [facility] Comment on above: Performed By: #### L [id number] ####[facility] ([facility])[address] [place] [address] Cholesterol [Mass/Vol] 240 mg/dL High 120-200 [facility] Comment on above: Performed By: #### L [id number] ####[facility] ([facility])[address] [place] [address] Magnesium [Mass/Vol] 274 mg/dL High 40-149 [facility] Comment on above: Result Comment: TRIG LYCERIDE REFERENCE RANGE: 20 YEARS AND OLDER CARDIOVASCULAR RISK LESS THAN 150 mg/dL LOW RISK 150 TO 199 mg/dL BORDERLINE RISK 200 mg/dL AND GREATER HIGH RISK Performed By: #### L [id number] ####[facility] ([facility])[address] [place] [address] Magnesium [Mass/Vol] 136 mg/dL Normal 0-160 [facility] Comment on above: Performed By: #### L [id number] ####[facility] ([facility])[address] [place] [address] Magnesium [Mass/Vol] 49 mg/dL Normal 23-92 [facility] Comment on above: Performed By: #### L [id number] ####[facility] ([facility])[address] [place] [address] NON HDL CHOL. (LDL+VLDL) 191 Normal [facility] Comment on above: Performed By: #### L [id number] ####[facility] ([facility])[address] [facility] [address] TOTAL VLDL-C 55 mg/dL High 0-40 [facility] Comment on above: Performed By: #### L [id number] ####[facility] ([facility])[address] [place] [address] Labon 03-31-2023 Lab [id number] Antonio Puri i 1975 F Date Provider Department Center 03/31/2023 2245-[facility] OPD LAB RESOURCE [facility] Medical C Family History Problem Relation Age of Onset Fibromyalgia Mother Heart disease Father Hypertension Sister Polycystic kidney disease Sister Hypertension Brother Polycystic kidney disease Brother Family Status - Relation Status Age at Mother Father Sister Brother Normal [facility] MAGNESIUMon 03-31-2023 Magnesium [Mass/Vol] 1.5 mg/dL Low 1.9-2.7 [facility] Comment on above: Performed By: #### L [id number] #### [facility] ([facility]) [address] [place] [address] PANEL REACTIVE ANTIBODYon HOLD SPECIMEN Hold for add-ons. Normal [facility] Comment on above: Result Comment: Auto resulted. Performed By: #### L [id number] #### [facility] TISSUE TYPING (HISTOTRAC) [address] [place] [address] [place] PHOSPHORUSon 03-31-2023 Magnesium [Mass/Vol] 2.6 mg/dL Normal 2.5-5.0 [facility] Comment on above: Performed By: #### L [id number] #### [facility] ([facility]) [address] [place] [address] SINGLE ANTIGEN CLASS Ion AB SCREEN COMMENTS No Class I donor spe cific antibody identified [facility] Comment on above: Performed By: #### L [id number] ####[facility] TISSUE TYPING (HISTOTRAC)[address] [place] [address] [facility] CLASS I TESTED DATE [id number] Normal [facility] Comment on above: Performed By: #### L [id number] ####[facility] TISSUE TYPING (HISTOTRAC)[address] [place] [address] [facility] SINGLE ANTIGEN CLASS 1 TEST METHOD Class I Single Antigen Normal [facility] Comment on above: Performed By: #### L [id number] ####[facility] TISSUE TYPING (HISTOTRAC)[address] [place] [address] [facility] SINGLE ANTIGEN CLASS IIon AB SCREEN COMMENTS No Class II donor specific antibody identified Normal [facility] Comment on above: Performed By: #### L [id number] ####[facility] TISSUE TYPING (HISTOTRAC)[address] [place] [address] CLASS II TESTED DATE [id number] [facility] Comment on above: Performed By: #### L [id number] ####[facility] TISSUE TYPING (HISTOTRAC)[address] [place] [address] SIGNED BY Signed by Nelson escamilla CHT([facility]) PARKER(ASCP), Applications Instructor Transplant Immunology [facility] Comment on above: Performed By: #### L [id number] ####[facility] TISSUE TYPING (HISTOTRAC)[address] [place] [address] Result Comment: Clas s I Antigen Microbeads Performed By: #### L [id number] ####[facility] TISSUE TYPING (HISTOTRAC)[address] [place] [address] SINGLE ANTIGEN CLASS 2 TEST METHOD Class II Single Antigen Normal [facility] Comment on above: Result Comment: Clas s II Antigen Microbeads Performed By: #### L [id number] ####[facility] TISSUE TYPING (HISTOTRAC)[address] [place] [address] TACROLIMUS LEVELon Tacrolimus (Bld) [Mass/Vol] 6.2 ng/mL Normal 5.0-20.0 [facility] Comment on above: Result Comment: The [employer] Tacrolimus assay is a delayed one-step immunoassay for the quantitative determination of tacrolimus in human whole blood using the chemiluminescent microparticle immunoassay (CMIA) technology with flexible assay protocols, referred to as Chemiflex. Performed By: #### L [id number] #### [facility] (BEAKER) [address] [place] [address] URIC ACIDon 03-31-2023 Magnesium [Mass/Vol] 5.3 mg/dL Normal 2.3-6.6 [facility] Comment on above: Performed By: #### L [id number] #### [facility] ([facility]ER) [address] [place] [address] PTH INTACTon 07-30-2022 PTH, Intact 107 pg/mL Critically high 15-65 [facility] Comment on above: Performed By: #### M G, URIC, RENAL #### [facility] [address] [place] [address] Dr. Hari Palmer FERRITINon 07-29-2022 Ferritin [Mass/Vol] 194.0 ng/mL Critically high 6.2-137.0 [facility] Comment on above: Performed By: #### M G, URIC, RENAL #### [facility] [address] [place] [address] Dr. Hari Palmer HEMOGRAM AND PLATELon 2021 Hematocrit (Bld) [Volume fraction] 32.8 % Critically low 36.0-48.0 [facility] Comment on above: Performed By: #### M G, URIC, RENAL #### [facility] [address] [place] [address] Dr. Hari Palmer Hemoglobin (Bld) [Mass/Vol] 10.8 g/dL Critically low 12.0-16.0 [facility] Comment on above: Performed By: #### M G, URIC, RENAL #### [facility] [address] [place] [address] Dr. Hari Palmer MCH (RBC) [Entitic mass] 31.7 pg Normal 26.7-34.0 [facility] Comment on above: Performed By: #### M G, URIC, RENAL #### [facility] [address] [place] [address] Dr. Hari Palmer MCHC (RBC) [Mass/Vol] 32.9 g/dL Normal 29.9-35.2 [facility] Comment on above: Performed By: #### M G, URIC, RENAL #### [facility] [address] [place] [address] Dr. Hari Palmer MCV (RBC) [Entitic vol] 96.2 fL Normal 81.0-99.0 [facility] Comment on above: Performed By: #### M G, URIC, RENAL #### [facility] [address] [place] [address] Dr. Hari Palmer PLT 297 103/ul Normal 150-450 [facility] Comment on above: Performed By: #### M G, URIC, RENAL #### [facility] [address] [address] [address] Hari Palmer RBC 3.41 106/ul Critically low 4.20-5.40 [facility] Comment on above: Performed By: #### M G, URIC, RENAL #### [facility] [address] [address] [address] Hari Palmer WBC 7.1 103/ul Normal 4.0-11.0 [facility] Comment on above: Performed By: #### M G, URIC, RENAL #### [facility] [address] [place] [address] Dr. Hari Palmer IRON AND TIBCon 07-29-2022 % SATURATION 19.0 % Normal [facility] Comment on above: Performed By: #### M G, URIC, RENAL #### [facility] [address] [place] [address] Dr. Hari Palmer Iron [Mass/Vol] 48.0 ug/dL Critically low 50.0-170.0 [facility] Comment on above: Performed By: #### M G, URIC, RENAL #### [facility] [address] [place] [address] Dr. Hari Palmer TIBC DIRECT 252.0 ug/dL Normal 250.0-450.0 [facility] Comment on above: Performed By: #### M G, URIC, RENAL #### [facility] [address] [place] [address] Dr. Hari Palmer MAGNESIUMon 07-29-2022 Magnesium [Mass/Vol] 2.0 mg/dL Normal 1.8-2.4 [facility] Comment on above: Performed By: #### M G, URIC, RENAL #### [facility] [address] [place] [address] Dr. Hari Palmer RENAL FUNCTION PANELon 07-29 Albumin [Mass/Vol] 3.6 g/dL Normal 3.4-5.0 [facility] Comment on above: Performed By: #### M G, URIC, RENAL #### [facility] [address] [place] [address] Dr. Hari Palmer Calcium [Mass/Vol] 8.7 mg/dL Normal 8.5-10.1 [facility] Comment on above: Performed By: #### M G, URIC, RENAL #### [facility] [address] [place] [address] Dr. Hari Palmer Chloride [Moles/Vol] 104 mmol/L Normal 98-107 [facility] Comment on above: Performed By: #### M G, URIC, RENAL #### [facility] [address] [place] [address] Dr. Hari Palmer CO2 [Moles/Vol] 21.8 mmol/L Normal 21.0-32.0 [facility] Comment on above: Performed By: #### M G, URIC, RENAL #### [facility] [address] [place] [address] Dr. Hari Palmer Creatinine [Mass/Vol] 3.83 mg/dL Critically high 0.55-1.02 [facility] Comment on above: Performed By: #### M G, URIC, RENAL #### [facility] [address] [place] [address] Dr. Hari Palmer EGFR-AF [place]DI[place] 15 mL/min/1.73m2 Critically low >=60 [facility] Comment on above: Performed By: #### M G, URIC, RENAL #### [facility] [address] [place] [address] Dr. Hari Palmer EGFR-NON AF [place]DIAN 13 mL/min/1.73m2 Critically low >=60 [facility] Comment on above: Performed By: #### M G, URIC, RENAL #### [facility] [address] [place] [address] Dr. Hari Palmer Glucose [Mass/Vol] 108 mg/dL Critically high 74-106 [facility] Comment on above: Performed By: #### M G, URIC, RENAL #### [facility] [address] [place] [address] Dr. Hari Palmer Phosphate [Mass/Vol] 5.4 mg/dL Critically high 2.6-4.7 [facility] Comment on above: Performed By: #### M G, URIC, RENAL #### [facility] [address] [place] [address] Dr. Hari Palmer Potassium [Moles/Vol] 3.9 mmol/L Normal 3.5-5.1 [facility] Comment on above: Performed By: #### M G, URIC, RENAL #### [facility] [address] [place] [address] Dr. Hari Palmer Sodium [Moles/Vol] 137 mmol/L Normal 136-145 [facility] Comment on above: Performed By: #### M G, URIC, RENAL #### [facility] [address] [place] [address] Dr. Hari Palmer Urea nitrogen [Mass/Vol] 47.0 mg/dL Critically high 7.0-18.0 [facility] Comment on above: Performed By: #### M G, URIC, RENAL #### [facility] [address] [place] [address] Dr. Hari Palmer URIC ACID SERUMon 07-29-2022 Urate [Mass/Vol] 6.3 mg/dL Critically high 2.6-6.0 [facility] Comment on above: Performed By: #### M G, URIC, RENAL #### [facility] [address] [place] [address] Dr. Hari Palmer URINE T PROTEIN CREAT RATIOo n 07-29-2022 Protein (U) [Mass/Vol] 29.7 mg/dL Critically high <=12.0 [facility] Comment on above: Performed By: #### M G, URIC, RENAL #### [facility] [address] [place] [address] Dr. Hari Palmer UR PROT CREAT RAT 0.56 Normal [facility] Comment on above: Performed By: #### M G, URIC, RENAL #### [facility] [address] [place] [address] Dr. Hari Palmer URINE CREAT 53.35 mg/dL Normal 20.00-300.00 [facility] Comment on above: Performed By: #### M G, URIC, RENAL #### [facility] [address] [place] [address] Dr. Hari Palmer VITAMIN D 25 OHon 07-29-2022 VIT D 25-OH 38.8 ng/mL Normal [facility] Comment on above: Performed By: #### M G, URIC, RENAL #### [facility] [id number] Hari Palmer VIT D RANGES SEE BELOW Normal [facility] Comment on above: Result Comment: <20 ng/mL Vit D deficient 20 - <30 ng/mL Vit D insufficient 30 - 100 ng/mL Vit D sufficient >100 ng/mL Potential Toxicity Performed By: #### M G, URIC, RENAL #### [facility] [id number] Hari Palmer Albumin [Mass/volume] in Ser um or PlasmaOrdered By: Stanley Forman on 06-20-2022 Albumin [Mass/Vol] 3.9 g/dL 3.2-5.5 [facility] Basophils Auto (Bld) [#/Vol] Ordered By: Stanley Forman on 06-20-2022 Basophils (Bld) [#/Vol] 0.1 10*3/uL 0.0-0.2 [facility] Basophils/100 WBC Auto (Bld) Ordered By: Stanley Forman on 06-20-2022 Basophils/100 WBC (Bld) 0.7 % . [facility] Blood hemoglobin measurement (mass/volume)Ordered By: Stanley Forman on 06-20-2022 Hemoglobin (Bld) [Mass/Vol] 10.8 g/dL 11.8-15.4 [facility] Blood leukocytes automated c ount (number/volume)Ordered By: Stanley Forman on 06-20-2022 WBC (Bld) [#/Vol] 11.8 10*3/uL 4.5-11.0 [facility] C reactive protein [Mass/vol ume] in Serum or PlasmaOrdered By: Stanley Forman on 06-20-2022 CRP [Mass/Vol] 5.2 mg/dL 0.0-1.0 [facility] Creatinine and Glomerular fi ltration rate.predicted panel (S/P/Bld)Ordered By: Stanley Forman on 06-20-2022 Creatinine [Mass/Vol] 4.49 mg/dL 0.44-1.03 [facility] Eosinophils Auto (Bld) [#/Vo l]Ordered By: Stanley Forman on 06-20-2022 Eosinophils (Bld) [#/Vol] 0.4 10*3/uL 0.0-0.45 [facility] Eosinophils/100 WBC Auto (Bl d)Ordered By: Stanley Forman on 06-20-2022 Eosinophils/100 WBC (Bld) 3.2 % . [facility] Erythrocyte distribution wid th Auto (RBC) [Ratio]Ordered By: Stanley Forman on 06-20-2022 Erythrocyte distribution width (RBC) [Ratio] 14.0 % 11.9-15.3 [facility] Erythrocyte sedimentation ra te by Photometric methodOrdered By: Stanley Forman on 06-20-2022 ESR Photometric method (d) [Velocity] 67 mm/hr 0-19 [facility] Estimated glomerular filtrat ion rate (GFR) non- AmericanOrdered By: Stanley Forman on 06-20-2022 GFR/1.73 sq M.predicted among non-blacks MDRD (S/P/Bld) [Vol rate/Area] 11 mL/Min [facility] Globulin Calc (S) [Mass/Vol] Ordered By: Stanley Forman on 06-20-2022 Globulin (S) [Mass/Vol] 3.5 g/dL [facility] Hematocrit Auto (Bld) [Volum e fraction]Ordered By: Stanley Forman on 06-20-2022 Hematocrit (Bld) [Volume fraction] 33.1 % 34.0-46.4 [facility] Laboratory - Hematology and Cell countsOrdered By: Stanley Forman on 06-20-2022 Nucleated RBC/100 WBC (Bld) [Ratio] 0.0 % 0-0.5 [facility] Lymphocytes Auto (Bld) [#/Vo l]Ordered By: Stanley Forman on 06-20-2022 Lymphocytes (Bld) [#/Vol] 1.5 10*3/uL 1.00-4.8 [facility] Lymphocytes/100 WBC Auto (Bl d)Ordered By: Stanley Forman on 06-20-2022 Lymphocytes/100 WBC (Bld) 12.3 % . [facility] MCH Auto (RBC) [Entitic mass ]Ordered By: Stanley Forman on 06-20-2022 MCH (RBC) [Entitic mass] 31.1 pg 24.7-34.3 [facility] MCHC Auto (RBC) [Mass/Vol]Or dered By: Stanley Forman on 06-20-2022 MCHC (RBC) [Mass/Vol] 32.5 g/dL 32.0-35.0 [facility] MCV Auto (RBC) [Entitic vol] Ordered By: Stanley Forman on 06-20-2022 MCV (RBC) [Entitic vol] 95.6 fL 80-100 [facility] Monocytes Auto (Bld) [#/Vol] Ordered By: Stanley Forman on 06-20-2022 Monocytes (Bld) [#/Vol] 0.5 10*3/uL 0.0-0.8 [facility] Monocytes/100 WBC Auto (Bld) Ordered By: Stanley Forman on 06-20-2022 Monocytes/100 WBC (Bld) 4.1 % . [facility] Neutrophils Auto (Bld) [#/Vo l]Ordered By: Stanley Forman on 06-20-2022 Neutrophils (Bld) [#/Vol] 9.4 10*3/uL 1.8-7.7 [facility] Neutrophils/100 WBC Auto (Bl d)Ordered By: Stanley Forman on 06-20-2022 Neutrophils/100 WBC (Bld) 79.7 % . [facility] No Panel InformationOrdered By: Stanley Forman on 06-20-2022 Estimated GFR () 13 mL/Min [facility] Comment on above: GFR estimated refere nce range: According to KDOQI guidelines, <60 ml/min/1.73m2 is sufficient to diagnose a patient with chronic kidney disease. Pharmacy Creatinine Clearance (Chem 16.48 [facility] Platelet mean volume Auto (B ld) [Entitic vol]Ordered By: Stanley Forman on 06-20-2022 Platelet mean volume (Bld) [Entitic vol] 7.0 fL 6.3-10.7 [facility] Platelets Auto (Bld) [#/Vol] Ordered By: Stanley Forman on 06-20-2022 Platelets (Bld) [#/Vol] 287 10*3/uL 150-450 [facility] Protein [Mass/volume] in Ser um or PlasmaOrdered By: Stanley Forman on 06-20-2022 Protein [Mass/Vol] 7.4 g/dL 6.1-7.9 [facility] RBC Auto (Bld) [#/Vol]Ordere d By: Stanley Forman on 06-20-2022 RBC (Bld) [#/Vol] 3.46 10*6/uL 3.60-5.00 [facility] Serum or plasma alanine cesar otransferase measurement without P-5'-P (enzymatic activiOrdered By: Stanley Forman on 06-20-2022 ALT No additional P-5'-P [Catalytic activity/Vol] 11 U/L 10-60 [facility] Serum or plasma albumin/glob ulin mass ratioOrdered By: Stanley Forman on 06-20-2022 Albumin/Globulin [Mass ratio] 1.1 {ratio} [facility] Serum or plasma alkaline gina sphatase measurement (enzymatic activity/volume)Ordered By: Stanley Forman on 06-20-2022 ALP [Catalytic activity/Vol] 82 U/L 32-92 [facility] Serum or plasma anion gap de terminationOrdered By: Stanley Forman on 06-20-2022 Anion gap [Moles/Vol] 16.2 mmol/L 6.0-15.0 [facility] Serum or plasma aspartate am inotransferase measurement (enzymatic activity/volume)Ordered By: Stanley Forman on 06-20-2022 AST [Catalytic activity/Vol] 15 U/L 10-42 [facility] Serum or plasma calcium ge urement (mass/volume)Ordered By: Stanley Forman on 06-20-2022 Calcium [Mass/Vol] 9.3 mg/dL 8.2-10.2 [facility] Serum or plasma chloride lee surement (moles/volume)Ordered By: Stanley Forman on 06-20-2022 Chloride [Moles/Vol] 103 mmol/L 95-114 [facility] Serum or plasma glucose ge urement (mass/volume)Ordered By: Stanley Forman on 06-20-2022 Glucose [Mass/Vol] 75 mg/dL 70-100 [facility] Comment on above: ADA recommended refe rence rangeRandom Glucose Reference Range is dependent on time and content of last meal. Glucose of more than 200 mg/dL in a nonstressed, ambulatory subject supports the diagnosis of Diabetes Mellitus. Serum or plasma potassium me asurement (moles/volume)Ordered By: Stanley Forman on 06-20-2022 Potassium [Moles/Vol] 4.3 mmol/L 3.5-5.1 [facility] Serum or plasma sodium measu rement (moles/volume)Ordered By: Stanley Forman on 06-20-2022 Sodium [Moles/Vol] 135 mmol/L 136-146 [facility] Serum or plasma total biliru bin measurement (mass/volume)Ordered By: Stanley Forman on 06-20-2022 Bilirubin [Mass/Vol] 0.3 mg/dL 0.3-1.2 [facility] Serum or plasma total carbon dioxide measurement (moles/volume)Ordered By: Stanley Forman on 06-20-2022 CO2 [Moles/Vol] 20.1 mmol/L 22.0-30.0 [facility] Serum or plasma urea nitroge n measurement (mass/volume)Ordered By: Stanley Forman on 06-20-2022 Urea nitrogen [Mass/Vol] 42 mg/dL 9-23 [facility] COVID-19 Positive/NegativeOr dered By: Jesus Parham on 06-14-2022 SARS-CoV-2 (COVID-19) N gene AMBERLY+probe Ql (Resp) Negative Negative [facility] Comment on above: Testing for SARS-CoV -2 by RT-PCR This test was developed and its performance characteristics determined by [employer] ([employer]) and validated at the [facility]. This test has not been FDA cleared [...] developed and its performance characteristics determined by [employer] ([employer]) and validated at the [facility]. This test has not been FDA cleared [...] (CA) 125 10.8 U/mL Normal 0.0-38.1 [facility] Comment on above: Result Comment: [employer] Electrochemiluminescence Immunoassay (ECLIA) . Values obtained with different assay methods or kits cannot be used interchangeably. Results cannot be interpreted as absolute evidence of the presence or absence of malignant disease. Performed By: #### M G, URIC, RENAL #### [facility] Laboratory [address] [place] [address] Dr. Hari Palmer CEAon 06-08-2022 CEA 0.9 ng/mL Normal 0.0-4.7 [facility] Comment on above: Result Comment: Nons mokers <3.9 Smokers <5.6 . [employer] Electrochemiluminescence Immunoassay (ECLIA) . Values obtained with different assay methods or kits cannot be used interchangeably. Results cannot be interpreted as absolute evidence of the presence or absence of malignant disease. Performed By: #### C EA. #### [facility] Laboratory [address] [place] [address] Dr. Hari Palmer Basophils Auto (Bld) [#/Vol] Ordered By: Jesus Parham on 06-05-2022 Basophils (Bld) [#/Vol] 0.0 10*3/uL 0.0-0.2 [facility] Basophils/100 WBC Auto (Bld) Ordered By: Jesus Parham on 06-05-2022 Basophils/100 WBC (Bld) 0.3 % . [facility] Blood hemoglobin measurement (mass/volume)Ordered By: Jesus Parham on 06-05-2022 Hemoglobin (Bld) [Mass/Vol] 12.0 g/dL 11.8-15.4 [facility] Blood leukocytes automated c ount (number/volume)Ordered By: Jesus Parham on 06-05-2022 WBC (Bld) [#/Vol] 8.5 10*3/uL 4.5-11.0 [facility] Creatinine and Glomerular fi ltration rate.predicted panel (S/P/Bld)Ordered By: Jesus Parham on 06-05-2022 Creatinine [Mass/Vol] 3.52 mg/dL 0.44-1.03 [facility] Eosinophils Auto (Bld) [#/Vo l]Ordered By: Jesus Parham on 06-05-2022 Eosinophils (Bld) [#/Vol] 0.2 10*3/uL 0.0-0.45 [facility] Eosinophils/100 WBC Auto (Bl d)Ordered By: Jesus aPrham on 06-05-2022 Eosinophils/100 WBC (Bld) 2.7 % . [facility] Erythrocyte distribution wid th Auto (RBC) [Ratio]Ordered By: Jesus Parham on 06-05-2022 Erythrocyte distribution width (RBC) [Ratio] 14.2 % 11.9-15.3 [facility] Estimated glomerular filtrat ion rate (GFR) non- AmericanOrdered By: Jesus Parham on 08-31-2022 GFR/1.73 sq M.predicted among non-blacks MDRD (S/P/Bld) [Vol rate/Area] 14 mL/Min [facility] Hematocrit Auto (Bld) [Volum e fraction]Ordered By: Jesus Parham on 06-05-2022 Hematocrit (Bld) [Volume fraction] 35.8 % 34.0-46.4 [facility] Laboratory - Hematology and Cell countsOrdered By: Jesus Parham on 06-05-2022 Nucleated RBC/100 WBC (Bld) [Ratio] 0.1 % 0-0.5 [facility] Lymphocytes Auto (Bld) [#/Vo l]Ordered By: Jesus Parham on 06-05-2022 Lymphocytes (Bld) [#/Vol] 1.6 10*3/uL 1.00-4.8 [facility] Lymphocytes/100 WBC Auto (Bl d)Ordered By: Jesus Parham on 06-05-2022 Lymphocytes/100 WBC (Bld) 19.3 % . [facility] MCH Auto (RBC) [Entitic mass ]Ordered By: Jesus Parham on 06-05-2022 MCH (RBC) [Entitic mass] 31.5 pg 24.7-34.3 [facility] MCHC Auto (RBC) [Mass/Vol]Or dered By: Jesus Parham on 06-05-2022 MCHC (RBC) [Mass/Vol] 33.3 g/dL 32.0-35.0 [facility] MCV Auto (RBC) [Entitic vol] Ordered By: Jesus Parham on 06-05-2022 MCV (RBC) [Entitic vol] 94.4 fL 80-100 [facility] Monocytes Auto (Bld) [#/Vol] Ordered By: Jesus Parham on 06-05-2022 Monocytes (Bld) [#/Vol] 0.3 10*3/uL 0.0-0.8 [facility] Monocytes/100 WBC Auto (Bld) Ordered By: Jesus Parham on 06-05-2022 Monocytes/100 WBC (Bld) 3.9 % . [facility] Neutrophils Auto (Bld) [#/Vo l]Ordered By: Jesus Parham on 06-05-2022 Neutrophils (Bld) [#/Vol] 6.2 10*3/uL 1.8-7.7 [facility] Neutrophils/100 WBC Auto (Bl d)Ordered By: Jesus Parham on 06-05-2022 Neutrophils/100 WBC (Bld) 73.8 % . [facility] No Panel InformationOrdered By: Jesus Parham on 06-05-2022 Estimated GFR () 17 mL/Min [facility] Comment on above: GFR estimated refere nce range: According to KDOQI guidelines, <60 ml/min/1.73m2 is sufficient to diagnose a patient with chronic kidney disease. Pharmacy Creatinine Clearance (Chem N/A [facility] Platelet mean volume Auto (B ld) [Entitic vol]Ordered By: Jesus Parham on 06-05-2022 Platelet mean volume (Bld) [Entitic vol] 7.3 fL 6.3-10.7 [facility] Platelets Auto (Bld) [#/Vol] Ordered By: Jesus Parham on 06-05-2022 Platelets (Bld) [#/Vol] 312 10*3/uL 150-450 [facility] RBC Auto (Bld) [#/Vol]Ordere d By: Jesus Parham on 06-05-2022 RBC (Bld) [#/Vol] 3.80 10*6/uL 3.60-5.00 [facility] Serum or plasma anion gap de terminationOrdered By: Jesus Parham on 06-05-2022 Anion gap [Moles/Vol] 15.1 mmol/L 6.0-15.0 [facility] Serum or plasma calcium ge urement (mass/volume)Ordered By: Jesus Parham on 06-05-2022 Calcium [Mass/Vol] 9.5 mg/dL 8.2-10.2 [facility] Serum or plasma chloride lee surement (moles/volume)Ordered By: Jesus Parham on 06-05-2022 Chloride [Moles/Vol] 106 mmol/L 95-114 [facility] Serum or plasma glucose ge urement (mass/volume)Ordered By: Jesus Parham on 06-05-2022 Glucose [Mass/Vol] 91 mg/dL 70-100 [facility] Comment on above: ADA recommended refe [...] on 06-05-2022 Potassium [Moles/Vol] 4.4 mmol/L 3.5-5.1 [facility] Serum or plasma sodium measu rement (moles/volume)Ordered By: Jesus Parham on 06-05-2022 Sodium [Moles/Vol] 137 mmol/L 136-146 [facility] Serum or plasma total carbon dioxide measurement (moles/volume)Ordered By: Jesus Parham on 06-05-2022 CO2 [Moles/Vol] 20.3 mmol/L 22.0-30.0 [facility] Serum or plasma urea nitroge n measurement (mass/volume)Ordered By: Jesus Parham on 06-05-2022 Urea nitrogen [Mass/Vol] 38 mg/dL 9-23 [facility] PTH INTACTon 04-29-2022 PTH, Intact 191 pg/mL Critically high 15-65 [facility] Comment on above: Performed By: #### M G, URIC, RENAL #### [facility] Laboratory [address] [address] [address] Hari Palmer VIT D 25-OH LABCORPon 2021 Vitamin D, 25-Hydroxy 33.6 ng/mL Normal 30.0-100.0 [facility] [place] Comment on above: Result Comment: Ning min D deficiency has been defined by the [place] of Medicine and an Endocrine Society practice guideline as a level of serum 25-OH vitamin D less than 20 ng/mL (1,2). The Endocrine Society went on to further define vitamin D insufficiency as a level between 21 and 29 ng/mL (2). 1. IOM ([place] of [employer]). 2010. Dietary reference intakes for calcium and D. [place]: The National Academies Press. 2. Chantel MF, Landen [place], Eliseo STEPHENS, et al. Evaluation, treatment, and prevention of vitamin D deficiency: an Endocrine Society clinical practice guideline. JCEM. 2010; 96(7):1911-30. Performed By: #### M G, URIC, RENAL #### [facility] [address] [place] [address] Dr. Hari Palmer ABO AND RH TYPEon 04-27-2022 ABO and Rh group Nom (Bld) ABO Rh Typing O Rh Positive Normal [facility] Comment on above: Performed By: #### M G URIC, RENAL #### [facility] [address] [place] [address] Dr. Hari Palmer FERRITINon 04-27-2022 Ferritin [Mass/Vol] 273.0 ng/mL Critically high 6.2-137.0 [facility] Comment on above: Performed By: #### M G, URIC, RENAL #### [facility] [address] [place] [address] Dr. Hari Palmer HEMOGRAM AND PLATELon 2021 Hematocrit (Bld) [Volume fraction] 33.9 % Critically low 36.0-48.0 [facility] Comment on above: Performed By: #### M G, URIC, RENAL #### [facility] [address] [place] [address] Dr. Hari Palmer Hemoglobin (Bld) [Mass/Vol] 11.4 g/dL Critically low 12.0-16.0 [facility] Comment on above: Performed By: #### M G, URIC, RENAL #### [facility] [address] [place] [address] Dr. Hari Palmer MCH (RBC) [Entitic mass] 31.7 pg Normal 26.7-34.0 [facility] Comment on above: Performed By: #### M G, URIC, RENAL #### [facility] [address] [place] [address] Dr. Hari Palmer MCHC (RBC) [Mass/Vol] 33.6 g/dL Normal 29.9-35.2 [facility] Comment on above: Performed By: #### M G, URIC, RENAL #### [facility] [address] [place] [address] Dr. Hari Palmer MCV (RBC) [Entitic vol] 94.2 fL Normal 81.0-99.0 [facility] Comment on above: Performed By: #### M G, URIC, RENAL #### [facility] [address] [place] [address] Dr. Hari Palmer PLT 333 103/ul Normal 150-450 [facility] Comment on above: Performed By: #### M G, URIC, RENAL #### [facility] [address] [place] [address] Dr. Hari Palmer RBC 3.60 106/ul Critically low 4.20-5.40 [facility] Comment on above: Performed By: #### M G, URIC, RENAL #### [facility] [address] [place] [address] Dr. Hari Palmer WBC 9.7 103/ul Normal 4.0-11.0 [facility] Comment on above: Performed By: #### M G, URIC, RENAL #### [facility] [address] [place] [address] Dr. Hari Palmer IRON AND TIBCon 04-27-2022 % SATURATION 20.1 % Normal [facility] Comment on above: Performed By: #### M G, URIC, RENAL #### [facility] [address] [place] [address] Dr. Hari Palmer Iron [Mass/Vol] 57.0 ug/dL Normal 50.0-170.0 [facility] Comment on above: Performed By: #### M G, URIC, RENAL #### [facility] [address] [place] [address] Dr. Hari Palmer TIBC DIRECT 283.0 ug/dL Normal 250.0-450.0 [facility] Comment on above: Performed By: #### M G, URIC, RENAL #### [facility] [address] [place] [address] Dr. Hari Palmer MAGNESIUMon 04-27-2022 Magnesium [Mass/Vol] 2.1 mg/dL Normal 1.8-2.4 [facility] Comment on above: Performed By: #### R ENAL, URIC, MG #### [facility] [address] [address] [address] Hari Palmer RENAL FUNCTION PANELon 04-27 Albumin [Mass/Vol] 3.6 g/dL Normal 3.4-5.0 [facility] Comment on above: Performed By: #### R ENAL, URIC, MG #### [facility] [address] [address] [address] Hari Palmer Calcium [Mass/Vol] 9.0 mg/dL Normal 8.5-10.1 [facility] Comment on above: Performed By: #### R ENAL, URIC, MG #### [facility] [address] [address] [address] Hari Palmer Chloride [Moles/Vol] 104 mmol/L Normal 98-107 [facility] Comment on above: Performed By: #### R ENAL, URIC, MG #### [facility] [address] [address] [address] Hari Palmer CO2 [Moles/Vol] 23.0 mmol/L Normal 21.0-32.0 [facility] Comment on above: Performed By: #### R ENAL, URIC, MG #### [facility] [address] [address] [address] Hari Palmer Creatinine [Mass/Vol] 3.38 mg/dL Critically high 0.55-1.02 [facility] Comment on above: Performed By: #### R ENAL, URIC, MG #### [facility] [address] [address] [address] Hari Palmer EGFR-AF [place]DI[place] 18 mL/min/1.73m2 Critically low >=60 [facility] Comment on above: Performed By: #### R ENAL, URIC, MG #### [facility] [address] [address] [address] Hari Palmer EGFR-NON AF CA[place]DIAN 15 mL/min/1.73m2 Critically low >=60 [facility] Comment on above: Performed By: #### R ENAL, URIC, MG #### [facility] [address] [place] [address] Dr. Hari Palmer Glucose [Mass/Vol] 113 mg/dL Critically high 74-106 [facility] Comment on above: Performed By: #### R ENAL, URIC, MG #### [facility] [address] [place] [address] Dr. Hari Palmer Phosphate [Mass/Vol] 4.4 mg/dL Normal 2.6-4.7 [facility] Comment on above: Performed By: #### R ENAL, URIC, MG #### [facility] [address] [place] [address] Dr. Hari Palmer Potassium [Moles/Vol] 4.0 mmol/L Normal 3.5-5.1 [facility] Comment on above: Performed By: #### R ENAL, URIC, MG #### [facility] [address] [place] [address] Dr. Hari Palmer Sodium [Moles/Vol] 137 mmol/L Normal 136-145 [facility] Comment on above: Performed By: #### R ENAL, URIC, MG #### [facility] [address] [place] [address] Dr. Hari Palmer Urea nitrogen [Mass/Vol] 44.0 mg/dL Critically high 7.0-18.0 [facility] Comment on above: Performed By: #### R ENAL, URIC, MG #### [facility] [address] [place] [address] Dr. Hari Palmer URIC ACID SERUMon 04-27-2022 Urate [Mass/Vol] 6.6 mg/dL Critically high 2.6-6.0 [facility] Comment on above: Performed By: #### R ENAL, URIC, MG #### [facility] [address] [place] [address] Dr. Hari Palmer URINE T PROTEIN CREAT RATIOo n 04-27-2022 Protein (U) [Mass/Vol] 31.4 mg/dL Critically high <=12.0 [facility] Comment on above: Performed By: #### M G, URIC, RENAL #### [facility] [address] [address] [address] Hari Palmer UR PROT CREAT RAT 0.55 Normal [facility] Comment on above: Performed By: #### M G, URIC, RENAL #### [facility] [id number] Hari Palmer URINE CREAT 57.50 mg/dL Normal 20.00-300.00 [facility] Comment on above: Performed By: #### M G, URIC, RENAL #### [facility] [place] [facility] [address] [address] [address] Hari Palmer ECHOCARDIO M/2D COMPLETEon 0 03-29-2022 ECHOCARDIO M/2D COMPLETE Patient: MANDEEP PURI Exam Date: 03/29/2022 : 1975 Gender:F Ordering : HAIDER FRENCH M.D. Admission #: [id number] Family : Order #: [id number] CLICK HERE TO VIEW EXAM ECHOCARDIOGRAM REPORT [...] Area(A4C): 17.00 cm2 Left Atrium Systolic Volume(A2C): 37237 mm3 Left Atrium Systolic Volume(A4C): 35230 mm3 Mitral Valve MV E to A Ratio: 0.80 Deceleration [place]: 3210 mm/s2 Mitral Valve A-Wave Peak Velocity: [...] Alonzo M.D. on 04/01/2022 at 12:33 Normal [facility] COVID-19 SOFIAOrdered By: Mary Beth Jones on 03-28-2022 SARS-CoV+SARS-CoV-2 (COVID-19) Ag IA.rapid Ql (Resp) Negative Negative [facility] Comment on above: This is a duplicate Ada SARS Antigen (GLORIA) result to be used for statistical tracking purpose only. No Panel InformationOrdered By: Shabbir Jones on 03-28-2022 SARS Antigen (LFIA) [facility] BLOOD TYPE AND RHon 02-13-20 ABO INTERPRETATION O Normal [facility] Comment on above: Performed By: #### 3 1397, 88514, 87577, 34796, 80729 #### [facility] [address] RH INTERPRETATION Positive Normal [facility] Comment on above: Performed By: #### 3 1397, 01557, 00620, 00732, 22380 #### [facility] 3000 [facility]. [address] BNP (B-TYPE NATRIURETIC PEPT JOEL)on 02-12-2022 Natriuretic peptide B (Bld) [Mass/Vol] 10 pg/mL Normal 0-100 [facility] Comment on above: Result Comment: Give n the appropriate clinical setting a BNP result of >100 pg/mL indicates congestive heart failure. Performed By: #### 8 0423, 37592 #### [facility] [address] CBC W/DIFFon 02-12-2022 ABS IMM GRANS 0.2 10*3/uL Normal 0.0-0.2 [facility] Comment on above: Performed By: #### 3 1397, 90769, 47086, 68283, 00544 #### [facility] [address] ABS NEUTROPHILS 7.8 10*3/uL High 1.6-7.6 [facility] Comment on above: Performed By: #### 3 1397, 07287, 45960, 28103, 58728 #### [facility] [address] [place] [address], [facility] Basophils (Bld) [#/Vol] 0.1 10*3/uL Normal 0.0-0.2 [facility] Comment on above: Performed By: #### 3 1397, 66488, 12474, 88761, 11188 #### [facility] [address] [place] [address], [facility] Basophils/100 WBC (Bld) 0.6 % Normal 0.0-1.0 [facility] Comment on above: Performed By: #### 3 1397, 95011, 96981, 50871, 00115 #### [facility] [address] [place] [address], [facility] Eosinophils (Bld) [#/Vol] 0.3 10*3/uL Normal 0.0-0.5 [facility] Comment on above: Performed By: #### 3 1397, 25316, 86814, 91301, 27386 #### [facility] [address] [place] [address], [facility] Eosinophils/100 WBC (Bld) 2.5 % Normal 0.0-6.0 [facility] Comment on above: Performed By: #### 3 1397, 54744, 71476, 69162, 56930 #### [facility] [address] [facility] [address] Erythrocyte distribution width (RBC) [Ratio] 13.6 % Normal 11.5-15.0 [facility] Comment on above: Performed By: #### 3 1397, 13104, 75563, 47468, 81926 #### [facility] [address] [place] [address], [facility] Hematocrit (Bld) [Volume fraction] 34.5 % Low 36.0-45.0 [facility] Comment on above: Performed By: #### 3 1397, 11839, 16830, 23882, 41436 #### [facility] [address] [place] [id number], [facility] Hemoglobin (Bld) [Mass/Vol] 11.3 g/dL Low 12.0-15.0 [facility] Comment on above: Performed By: #### 3 1397, 86921, 01149, 59770, 69006 #### [facility] [address] [place] [address], [facility] IMMATURE GRANS 1.4 % High 0.0-1.0 [facility] Comment on above: Performed By: #### 3 1397, 38561, 37737, 74338, 30498 #### [facility] [address] [place] [address], [facility] Lymphocytes (Bld) [#/Vol] 2.0 10*3/uL Normal 1.2-4.0 [facility] Comment on above: Performed By: #### 3 1397, 45878, 71789, 26755, 64455 #### [facility] [address] [facility] [place] [address], [facility] Lymphocytes/100 WBC (Bld) 18.6 % Low 20.0-45.0 [facility] Comment on above: Performed By: #### 3 1397, 87058, 45986, 56450, 37724 #### [facility] [address] [facility] [place] [place] [address], [facility] MCH (RBC) [Entitic mass] 31.3 pg Normal 27.0-33.0 [facility] Comment on above: Performed By: #### 3 1397, 81213, 72064, 28959, 86866 #### [facility] [address] [facility] [place] [place] [address], [facility] MCHC (RBC) [Mass/Vol] 32.8 g/dL Normal 32.0-35.0 [facility] Comment on above: Performed By: #### 3 1397, 81578, 43073, 73270, 31961 #### [facility] [address] [place] [id number], [facility] MCV (RBC) [Entitic vol] 95.6 fL Normal 82.0-98.0 [facility] Comment on above: Performed By: #### 3 1397, 62545, 14578, 71122, 51199 #### [facility] [address] [facility] [place] [address], [facility] Monocytes (Bld) [#/Vol] 0.5 10*3/uL Normal 0.1-1.0 [facility] Comment on above: Performed By: #### 3 1397, 71995, 48059, 89315, 16033 #### [facility] 3000 [facility] [place] [address], [facility] MONOS 4.9 % Low 5.0-12.0 [facility] Comment on above: Performed By: #### 3 1397, 03140, 66105, 27955, 83927 #### [facility] [address] [facility] Neutrophils/100 WBC (Bld) 72.0 % Normal 40.0-72.0 [facility] Comment on above: Performed By: #### 3 1397, 43201, 23397, 63751, 54012 #### [facility] 3000 [facility]. [address] Nucleated RBC/100 WBC (Bld) [Ratio] 0 % Normal 0-0 [facility] Comment on above: Performed By: #### 3 1397, 16137, 39102, 16967, 06694 #### [facility] [address] [facility]. [address] PLAT CNT 315 10*3/uL Normal 150-400 [facility] Comment on above: Performed By: #### 3 1397, 05450, 68068, 62730, 87587 #### [facility] [address] [facility]. [address] RBC (Bld) [#/Vol] 3.61 10*6/uL Low 3.80-5.00 [facility] Comment on above: Performed By: #### 3 1397, 22809, 25918, 44952, 18754 #### [facility] [address] [facility] [place] [address], [facility] WBC (Bld) [#/Vol] 10.78 10*3/uL High 4.00-10.60 [facility] Comment on above: Performed By: #### 3 1397, 86070, 45525, 26674, 42175 #### [facility] [address] [facility] [place], [place] [address] [place] [address] CHEST AND LATERALon 02-13-20 CHEST AND LATERAL [facility] Department of Radiology [address] [place] [address] Patient Name: MANDEEP PURI : [...] pathology. Electronically signed: Royal Dominguez. Transcribed by: [email or web address], User Resident: Electronically Signed by: ROYAL DOMINGUEZ @ 02/13/2022 11:48 AM Normal [facility] CMV IGG BLOODon 02-12-2022 CMV IGG 3.13 Normal [facility] Comment on above: Result Comment: NORM AL RANGES: < OR = 0.9O NEGATIVE ; NO DETECTABLE IgG ANTIBODY TO CMV 0.91 - 1.09 EQUIVOCAL; REPEAT TESTING SUGGESTED > OR = 1.10 POSITIVE ; INDICATES PRESENCE OF DETECTABLE IgG ANTIBODY TO CMV Performed By: #### 3 1397, 88942, 59557, 03607, 99061 #### [facility] [address] [place] [address], [facility] COMP METABOLIC PANELon 02-12 Albumin [Mass/Vol] 4.5 g/dL Normal 3.5-5.7 [facility] Comment on above: Performed By: #### 2 2505, 21552, 70066 #### [facility] [address] [place] [address], [facility] ALKALINE PHOSPH 89 IU/L Normal 34-104 [facility] Comment on above: Performed By: #### 2 2505, 33922, 16878 #### [facility] [address] [place] [address], [facility] ALT [Catalytic activity/Vol] 12 U/L Normal 7-52 [facility] Comment on above: Performed By: #### 2 2505, 35271, 01428 #### [facility] [address] [place] [address], [place] AST [Catalytic activity/Vol] 13 U/L Normal 13-39 [facility] Comment on above: Performed By: #### 2 2505, 45583, 03390 #### [facility] [address] [place] [address], [place] Bilirubin [Mass/Vol] 0.3 mg/dL Normal 0.3-1.0 [facility] Comment on above: Performed By: #### 2 2505, , 21794 #### [facility] [address] [place] [address], [place] Calcium [Mass/Vol] 9.5 mg/dL Normal 8.6-10.3 [facility] Comment on above: Performed By: #### 2 2505, , 53547 #### [facility] [address] [place] [address], [place] Chloride [Moles/Vol] 103 mmol/L Normal 98-107 [facility] Comment on above: Performed By: #### 2 2505, , 30792 #### [facility] [address] [place] [address], [place] CO2 [Moles/Vol] 22 mmol/L Normal 21-31 [facility] Comment on above: Performed By: #### 2 2505, 97010, 59939 #### [facility] [address] [place] [address], [place] Creatinine [Mass/Vol] 3.51 mg/dL High 0.60-1.20 [facility] Comment on above: Performed By: #### 2 2505, 58172, 59016 #### [facility] [address] [place] [address], [place] eGFR- 17 ml/min/1.73sq m Abnormal >60 [facility] Comment on above: Performed By: #### 2 2505, 34037, 74983 #### [facility] [address] [place] [address], [place] eGFR- non- 14 ml/min/1.73sq m Abnormal >60 [facility] Comment on above: Performed By: #### 2 2505, 83999, 82107 #### [facility] [address] [place] [address], [place] Glucose [Mass/Vol] 100 mg/dL Normal 70-100 [facility] Comment on above: Performed By: #### 2 2505, 03791, 93359 #### [facility] [address] [place] [address], [place] Potassium [Moles/Vol] 3.9 mmol/L Normal 3.5-5.1 [facility] Comment on above: Performed By: #### 2 2505, 86488, 26312 #### [facility] [address] [place] [address], [place] Protein [Mass/Vol] 8.0 g/dL Normal 6.0-8.3 [facility] Comment on above: Performed By: #### 2 2505, 17814, 62841 #### [facility] [address] [place] [address], [place] Sodium [Moles/Vol] 136 mmol/L Normal 136-145 [facility] Comment on above: Performed By: #### 2 2505, 60533, 33294 #### [facility] [address] [place] [address], [place] Urea nitrogen [Mass/Vol] 41 mg/dL High 7-25 [facility] Comment on above: Performed By: #### 2 2505, 74596, 00395 #### [facility] [address] [place] [address], [place] CREATININE URINE RANDOMon Creatinine (U) [Mass/Vol] 63.0 mg/dL Normal [facility] Comment on above: Result Comment: Ther e are no established reference values for random urine specimens Performed By: #### 3 1397, 07027, 96155, 53455, 82084 #### [address] [place] [address], [facility] CT RENAL RECIPIENT ABDOMEN A ND PEVLIS WO CONTRASTon 02-12-2022 CT RENAL RECIPIENT ABDOMEN AND PEVLIS WO CONTRAST [facility] Department of Radiology [address] [place] [id number] Patient Name: MANDEEP PURI : 1975 Sex: F Age: Race: White Pt. Location: Patient Status: O Ordered Date: 02/12/2022 1:55:00 PM Completed Date: 02/12/2022 02:04 PM Requesting Provider: HAIDER FRENCH Attending Provider: HAIDER FRENCH Report Copy To: Signs & Symptoms: Z01.818 Encounter for other preprocedural examination I10 History: [place] Comments: , Pre-kidney transplant work-up. Please evaluate [...] achievable. Electronically signed: NAN SARAVIA. Transcribed by: [email or web address], User Resident: Electronically Signed by: NAN SARAVIA @ 02/12/2022 02:59 PM Normal [facility] Comment on above: Order Comment: , Pre [...] Bilirubin.direct [Mass/Vol] 0.0 mg/dL Normal 0.0-0.2 [facility] Comment on above: Performed By: #### 2 2505, 82093, 07931 #### [facility] [address] [place] [address], [facility] BRETT LAGUERRE VIRUS ABon - EB VCA IGG 2.35 Normal [facility] Comment on above: Order Comment: CONSI STENT WITH PAST EBV INFECTION Result Comment: NORM AL RANGES: < OR = 0.9O NEGATIVE ; NO DETECTABLE IgG ANTIBODY TO EBV-VCA 0.91 - 1.09 EQUIVOCAL; REPEAT TESTING SUGGESTED > OR = 1.10 POSITIVE ; INDICATES PRESENCE OF DETECTABLE IgG ANTIBODY TO EBV Performed By: #### 3 1397, 96203, 07870, 87543, 34236 #### [facility] [address] [place] [address], [facility] EB VCA IGM 0.00 Normal [facility] Comment on above: Order Comment: CONSI STENT WITH PAST EBV INFECTION Result Comment: NORM AL RANGES: < OR = 0.9O NEGATIVE ; NO SIGNIFICANT LEVEL OF DETECTABLE EBV-VCA IgM AB 0.91 - 1.09 EQUIVOCAL; REPEAT TESTING SUGGESTED > OR = 1.10 POSITIVE ; SIGNIFICANT LEVEL OF DETECTABLE EBV-VCA IgM AB Performed By: #### 3 1397, 35622, 74474, 55516, 51042 #### [facility] [address] [place] [address], [facility] HEMOGLOBIN A1Con 02-12-2022 Glucose [Moles/Vol] 120 mmol/L Normal [facility] Comment on above: Performed By: #### 8 2103, 04063 #### [facility] [address] [place] [address], [facility] HbA1c (Bld) [Mass fraction] 5.8 % Normal 4.0-6.0 [facility] Comment on above: Performed By: #### 8 5123, 07166 #### [facility] [address] [facility] [address], [facility] HEPATITIS A ANTIBODY IGMon 0 02-12-2022 HEP A AB IGM Non-Reactive Normal NONREACTIVE [facility] Comment on above: Performed By: #### 3 1397, 54710, 48197, 69445, 45921 #### [facility] [address] [place] [address], [facility] HEPATITIS B CORE ANTIBODYon 02-12-2022 HEP B CORE AB Non-Reactive Normal NONREACTIVE [facility] Comment on above: Performed By: #### 3 1397, 72939, 10689, 19745, 57233 #### [facility] [address] [facility] [place] [place] [address], [facility] HEPATITIS B SURFACE ANTIBODY QUANTon 02-12-2022 HEP B SURF AB 1.14 mIU/ml Normal [facility] Comment on above: Result Comment: INTE RPRETATION: NONREACTIVE<8.00 mIU/mL INDETERMINATE8.00 - 12.00 mIU/mL REACTIVE>12 mIU/mL Performed By: #### 3 1397, 42286, 70573, 47907, 43769 #### [facility] [address] [facility] [place] [place] [address], [facility] HEPATITIS B SURFACE ANTIGEN QUALon 02-12-2022 HEP B SURF AG QUAL Non-Reactive Normal NONREACTIVE [facility] Comment on above: Performed By: #### 3 1397, 91932, 78083, 05156, 30620 #### [facility] [address] [facility] [place] [id number], [facility] HEPATITIS C ANTIBODYon 02-12 ANTI-HCV Non-Reactive Normal NONREACTIVE [facility] Comment on above: Performed By: #### 3 1397, 83563, 81126, 72185, 19469 #### [facility] [address] [facility] [address] HIV1 AND 2 COMBO 4Gon 2021 HIV COMBO Negative Normal NEGATIVE [facility] Comment on above: Performed By: #### 3 1397, 98403, 74468, 76479, 80899 #### [facility] [address] [facility] [place] [address], [facility] HLA ABC CLASS I TYPINGon A*-1 EQUIVALENT 1 Normal [facility] Comment on above: Order Comment: Some of [...] to frequency. Performed By: #### 3 1397, 92655, 34229, 31631, 50779 #### [facility] [address] [facility] [place] [place] [address], [facility] A*-2 EQUIVALENT 2 Normal [facility] Comment on above: Order Comment: Some of [...] to frequency. Performed By: #### 3 1397, 72109, 33080, 96847, 98274 #### [facility] [address] [facility] [place] [place] [address], [facility] B*-1 EQUIVALENT 35 Normal [facility] Comment on above: Order Comment: Some of [...] to frequency. Performed By: #### 3 1397, 26126, 57571, 83364, 91983 #### [facility] [address] [place] [address], [facility] B*-2 EQUIVALENT 37 Normal [facility] Comment on above: Order Comment: Some of [...] to frequency. Performed By: #### 3 1397, 88249, 98143, 46819, 91798 #### [facility] [address] [place] [address], [place] Bw*-1 EQUIVALENT 4 Normal [facility] Comment on above: Order Comment: Some of [...] to frequency. Performed By: #### 3 1397, 68689, 08973, 18100, 24543 #### [facility] [address] [place] [address], [place] Bw*-2 EQUIVALENT 6 Normal [facility] Comment on above: Order Comment: Some of [...] to frequency. Performed By: #### 3 1397, 58365, 97946, 61219, 54757 #### [facility] [address] [place] [address], [facility] C*-1 EQUIVALENT 4 Normal [facility] Comment on above: Order Comment: Some of [...] to frequency. Performed By: #### 3 1397, 00800, 26559, 79263, 92170 #### [facility] [address] [place] [address], [facility] C*-2 EQUIVALENT 6 Normal [facility] Comment on above: Order Comment: Some of [...] to frequency. Performed By: #### 3 1397, 97666, 16577, 41248, 59008 #### [facility] [address] [place] [address], [facility] METHOD Class I Typing by PCR-SSOP Luminex Normal [facility] Comment on above: Order Comment: Some of [...] to frequency. Performed By: #### 3 1397, 39825, 13320, 38566, 41057 #### [facility] [address] [facility]. [address] SIGNED BY Normal [facility] [...] to frequency. Result Comment: Nelson Noriega, MS,CHT(DONA),MT(ASCP) Applications Instructor, Transplant Immunology Performed By: #### 3 1397, 07709, 39794, 03411, 37739 #### [facility] [address] [facility]. [address] CLASS II TYPINGon DPB1*-1 EQUIVALENT 04:[address] [facility] [...] to frequency. Performed By: #### 3 1397, 12705, 28676, 00014, 72924 #### [facility] [address] DPB1*-2 EQUIVALENT 04:[address] [facility] [...] to frequency. Performed By: #### 3 1397, 12611, 93020, 47787, 52264 #### [facility] [address] [place] [address], [place] DQA1*-1 EQUIVALENT 01 Normal [facility] Comment on above: Order Comment: Some of [...] to frequency. Performed By: #### 3 1397, 63951, 87932, 59486, 64152 #### [facility] [address] [facility] [place] [address], [place] DQA1*-2 EQUIVALENT 05 Normal [facility] Comment on above: Order Comment: Some of [...] to frequency. Performed By: #### 3 1397, 44712, 35741, 42518, 54805 #### [facility] [address] [place] [address], [place] DQB1*-1 EQUIVALENT 7 Normal [facility] Comment on above: Order Comment: Some of [...] to frequency. Performed By: #### 3 1397, 99664, 49852, 78934, 77243 #### [facility] [address] [place] [address], [facility] DQB1*-2 EQUIVALENT 5 Normal [facility] Comment on above: Order Comment: Some of [...] to frequency. Performed By: #### 3 1397, 13434, 66505, 52972, 54475 #### [facility] [address] [place] [address], [facility] DRB1*-1 EQUIVALENT 10 Normal [facility] Comment on above: Order Comment: Some of [...] to frequency. Performed By: #### 3 1397, 48536, 29625, 66194, 35922 #### [facility] [address] [place] [address], [place] DRB1*-2 EQUIVALENT 11 Normal [facility] Comment on above: Order Comment: Some of [...] to frequency. Performed By: #### 3 1397, 93550, 95571, 94636, 66384 #### [facility] [address] DRB3*-1 EQUIVALENT 52 Normal [facility] Comment on above: Order Comment: Some of [...] to frequency. Performed By: #### 3 1397, 85618, 67625, 02122, 58270 #### [facility] [address] [facility]. [address] METHOD Class II Typing by PCR-SSOP Luminex Normal [facility] Comment on above: Order Comment: Some of [...] to frequency. Performed By: #### 3 1397, 54850, 32541, 43051, 90144 #### [facility] [address] [facility] [place] [address], [facility] LIPID PROFILEon 02-12-2022 Cholesterol [Mass/Vol] 221 mg/dL High 120-200 Th e [facility] Comment on above: Result Comment: CHOL ESTEROL REFERENCE RANGE: 20 YEARS AND OLDER CARDIOVASCULAR RISK Less than 200 mg/dl Low Risk 200 to 239 mg/dl Borderline Risk 240 mg/dl and greater High Risk Performed By: #### 3 1397, 27690, 24150, 45572, 65086 #### [facility] [address] [place] [address], [facility] Cholesterol in HDL [Mass/Vol] 40 mg/dL Normal 23-92 [facility] Comment on above: Result Comment: Slig ht variation in normal range could be due to gender and/or age. HDL CHOLESTEROL REFERENCE RANGE: 20 years and older Cardiovascular Risk > or =60 mg/dL Desirable 40 TO 59 mg/dL Low Risk <40 mg/dL High Risk Performed By: #### 3 1397, 44682, 88270, 89488, 99331 #### [facility] [address] [place] [address], [facility] Cholesterol in LDL [Mass/Vol] 101 mg/dL Normal 0-130 [facility] Comment on above: Result Comment: LDL IS A CALCULATION LDL IS ONLY VALID IF THE TRIG IS LESS THAN 400. Performed By: #### 3 1397, 90752, 70978, 51218, 53537 #### [facility] [address] [facility] [place] [address], [facility] Cholesterol.total/Chol esterol in HDL [Mass ratio] 5.5 {ratio} High .0-4.5 [facility] Comment on above: Performed By: #### 3 1397, 56533, 69355, 28733, 57417 #### [facility] [address] [facility] [place] [address], [facility] NON-HDL CHOLESTEROL 181 mg/dL Normal [facility] Comment on above: Performed By: #### 3 1397, 39517, 38537, 49338, 35238 #### [facility] [address] [place] [address], [facility] Triglyceride [Mass/Vol] 402 mg/dL High 40-149 [facility] Comment on above: Result Comment: TRIG LYCERIDE REFERENCE RANGE: 20 YEARS AND OLDER CARDIOVASCULAR RISK LESS THAN 150 mg/dl LOW RISK 150 TO 199 mg/dl BORDERLINE RISK 200 mg/dl AND GREATER HIGH RISK Performed By: #### 3 1397, 65605, 02775, 22820, 27236 #### [facility] [address] [place] [address], [facility] VLDL CHOL 80 mg/dL High 0-40 [facility] Comment on above: Performed By: #### 3 1397, 41339, 96191, 91705, 24636 #### [facility] [address] MUMPS IGG BLDon 02-12-2022 MUMPS IGG 5.46 Normal [facility] Comment on above: Result Comment: NORM AL RANGES: < OR = 0.9O NEGATIVE ; NO DETECTABLE IgG ANTIBODY TO MUMPS 0.91 - 1.09 EQUIVOCAL; REPEAT TESTING SUGGESTED > OR = 1.10 POSITIVE ; INDICATES PRESENCE OF DETECTABLE IgG ANTIBODY TO MUMPS Performed By: #### 3 1397, 43204, 69275, 02920, 45077 #### [facility] [address] RUBELLAon 02-12-2022 RUBELLA 4.79 Normal [facility] Comment on above: Result Comment: NORM AL RANGES: < OR = 0.9O NEGATIVE ; NO DETECTABLE IgG ANTIBODY TO RUBELLA 0.91 - 1.09 EQUIVOCAL; REPEAT TESTING SUGGESTED > OR = 1.10 POSITIVE ; INDICATES PRESENCE OF DETECTABLE IgG ANTIBODY TO RUBELLA VIRUS Performed By: #### 3 1397, 09113, 34258, 42579, 05402 #### [facility] [address] RUBEOLA MEASLES IGGon 2021 RUBEO IGG 6.43 Normal [facility] Comment on above: Result Comment: NORM AL RANGES: < OR = 0.9O NEGATIVE ; NO DETECTABLE IgG ANTIBODY TO RUBEOLA 0.91 - 1.09 EQUIVOCAL; REPEAT TESTING SUGGESTED > OR = 1.10 POSITIVE ; INDICATES PRESENCE OF DETECTABLE IgG ANTIBODY TO RUBEOLA Performed By: #### 3 1397, 65800, 40362, 74873, 96139 #### [facility] [address] [place] [address], [facility] SINGLE ANTIGEN CLASS 1on METHOD Class I Single Antigen Normal Th e [facility] Comment on above: Order Comment: Some of [...] to frequency. Performed By: #### 3 1397, 27957, 79464, 93269, 72415 #### [facility] [address] [place] [address], [facility] SINGLE ANTIGEN CLASS 2on COMMENTS Normal [facility] Comment on above: Order Comment: Some of [...] watch list. Performed By: #### 3 1397, 98316, 88216, 62046, 80930 #### [facility] [address] [facility] [place] [address], [facility] Result Comment: Clas s I Antigen Microbeads Potential specificites added to the watch list. CPRA [address] [facility] [...] to frequency. Performed By: #### 3 1397, 41808, 54816, 85080, 38286 #### [facility] [address] METHOD Class II Single Antigen Normal T he [facility] Comment on above: Order Comment: Some of [...] to frequency. Performed By: #### 3 1397, 53934, 30848, 63533, 73494 #### [facility] [address] T PROT UR Yesy 02-12-2022 U TOTAL PROTEIN 44.0 mg/dL Normal [facility] Comment on above: Result Comment: Ther e are no established reference values for random urine specimens Performed By: #### 3 1397, 53189, 51355, 17764, 46619 #### [facility] [address] TB QUANTIFERON PLUSon 2021 MITOGEN MINUS NIL >10.00 Normal [facility] Comment on above: Performed By: #### 3 1592 #### [facility] [address] NIL 0.03 IU/mL Normal [facility] Comment on above: Performed By: #### 3 1592 #### [facility] [address] TB QUANTIFERON Negative Normal NEGATIVE [facility] Comment on above: Result Comment: Jadiel tiferon TB Gold Interpretation (IU/mL): NEGATIVE: M. tuberculosis infection not likely. Nil: <=8.0 TB1 Antigen minus Nil (KO5SP-UJA): <0.35 OR >=0.35; and <25% of Nil value. TB2 Antigen minus Nil (IM5ZO-MMG): <0.35 OR >=0.35; and <25% of Nil [...] (https://www.cdc.gov/tb/publications/guidlines/default.htm Performed By: #### 3 1592 #### [facility] [address] [place] [address], [facility] TB1 AG 0.05 IU/mL Normal [facility] Comment on above: Performed By: #### 3 1592 #### [facility] [address] [place] [address], [facility] TB1 AG MINUS NIL 0.02 IU/mL Normal [facility] Comment on above: Performed By: #### 3 1592 #### [facility] [address] [place] [address], [facility] TB2 AG 0.05 IU/mL Normal [facility] Comment on above: Performed By: #### 3 1592 #### [facility] [address] [facility] [place] [address], [facility] TB2 AG MINUS NIL 0.02 IU/mL Normal [facility] Comment on above: Performed By: #### 3 1592 #### [facility] [address] [place] [address], [facility] UA,MICROSCOPIC REQUIREDon Appearance (U) SL CLOUDY Abnormal CLEAR [facility] Comment on above: Performed By: #### 3 1397, 84006, 18832, 36100, 19158 #### [facility] [address] [place] [address], [facility] Bilirubin Ql (U) Negative Normal NEGATIVE [facility] Comment on above: Performed By: #### 3 1397, 34117, 73940, 07907, 44359 #### [facility] [address] [place] [address], [facility] Color (U) STRAW Abnormal YELLOW [facility] Comment on above: Performed By: #### 3 1397, 49033, 27055, 46847, 00623 #### [facility] [address] [place] [address], [facility] EPIS MANY Abnormal FEW,OCC,NONE SEEN [facility] Comment on above: Performed By: #### 3 1397, 79188, 07301, 08857, 09852 #### [facility] [address] [place] [address], [facility] Glucose Ql (U) 50 mg/dL Abnormal NEGATIVE [facility] Comment on above: Performed By: #### 3 1397, 46358, 69094, 04891, 66344 #### [facility] [address] [place] [address], [facility] Hemoglobin Ql (U) Negative Normal NEGATIVE [facility] Comment on above: Performed By: #### 3 1397, 19091, 18450, 71628, 89147 #### [facility] [address] [place] [address], [facility] KETONE Negative Normal NEGATIVE [facility] Comment on above: Performed By: #### 3 1397, 22049, 76585, 88760, 32960 #### [facility] [address] [place] [address], [facility] LEUK MARYAN MODERATE Abnormal NEGATIVE [facility] Comment on above: Performed By: #### 3 1397, 48183, 81816, 68281, 23265 #### [facility] [address] [place] [address], [place] Nitrite Ql (U) Negative Normal NEGATIVE [facility] Comment on above: Performed By: #### 3 1397, 06107, 86095, 37926, 32671 #### [facility] [address] [facility]. [address] pH (U) 7.0 [pH] Normal 5.0-8.0 [facility] Comment on above: Performed By: #### 3 1397, 82783, 15247, 85841, 94568 #### [facility] [address] [facility]. [address] Protein Ql (U) 30 mg/dL Abnormal NEGATIVE [facility] Comment on above: Performed By: #### 3 1397, 44231, 04081, 13041, 96423 #### [facility] [address] [facility]. [address] RBC NONE SEEN Normal NONE SEEN [facility] Comment on above: Performed By: #### 3 1397, 33837, 80556, 25748, 28618 #### [facility] [address] [facility]. [address] SPEC GRAV 1.009 Low 1.015-1.020 [facility] Comment on above: Performed By: #### 3 1397, 22561, 78375, 45614, 04933 #### [facility] [address] [facility]. [address] WBC UA 11-20 Abnormal NONE SEEN [facility] Comment on above: Performed By: #### 3 1397, 85978, 34981, 75086, 51780 #### [facility] [address] VARICELLA ZOSTER IGGon 02-12 VARICELLA IGG 3.29 Normal [facility] Comment on above: Result Comment: NORM AL RANGES: < OR = 0.9O NEGATIVE ; NO DETECTABLE IgG ANTIBODY TO VARICELLA-ZOSTER VIRUS 0.91 - 1.09 EQUIVOCAL; REPEAT TESTING SUGGESTED > OR = 1.10 POSITIVE ; INDICATES PRESENCE OF DETECTABLE IgG ANTIBODY TO VARICELLA-ZOSTER VIRUS Performed By: #### 3 1397, 25615, 74721, 96048, 77216 #### [facility] [address] PTH INTACTon 12-04-2021 PTH, Intact 165 pg/mL Critically high 15-65 [facility] Comment on above: Performed By: #### M Edy URIC, RENAL #### [facility] Laboratory [address] [place] [address] Dr. Hari Palmer FERRITINon 12-03-2021 Ferritin [Mass/Vol] 256.0 ng/mL Critically high 6.2-137.0 [facility] Comment on above: Performed By: #### M Edy URIC, RENAL #### [facility] Laboratory [address] [place] [address] Dr. Hari Palmer HEMOGRAM AND PLATELon 2021 Hematocrit (Bld) [Volume fraction] 33.7 % Critically low 36.0-48.0 [facility] Comment on above: Performed By: #### M Edy URIC, RENAL #### [facility] Laboratory [address] [place] [address] Dr. Hari Palmer Hemoglobin (Bld) [Mass/Vol] 10.9 g/dL Critically low 12.0-16.0 [facility] Comment on above: Performed By: #### M G URIC, RENAL #### [facility] Laboratory [address] [place] [address] Dr. Hari Palmer MCH (RBC) [Entitic mass] 31.4 pg Normal 26.7-34.0 [facility] Comment on above: Performed By: #### M G, URIC, RENAL #### [facility] Laboratory [address] [place] [address] Dr. Hari Palmer MCHC (RBC) [Mass/Vol] 32.3 g/dL Normal 29.9-35.2 [facility] Comment on above: Performed By: #### M G, URIC, RENAL #### [facility] Laboratory [address] [place] [address] Dr. Hari Palmer MCV (RBC) [Entitic vol] 97.1 fL Normal 81.0-99.0 [facility] Comment on above: Performed By: #### M Edy URIC, RENAL #### [facility] Laboratory [address] [place] [address] Dr. Hari Palmer PLT 314 103/ul Normal 150-450 [facility] Comment on above: Performed By: #### M Edy URIC, RENAL #### [facility] Laboratory [address] [place] [address] Dr. Hari Palmer RBC 3.47 106/ul Critically low 4.20-5.40 [facility] Comment on above: Performed By: #### M Edy URIC, RENAL #### [facility] Laboratory [address] [place] [address] Dr. Hari Palmer WBC 9.4 103/ul Normal 4.0-11.0 [facility] Comment on above: Performed By: #### Xiomara Snow URIC, RENAL #### [facility] Laboratory [address] [place] [address] Dr. Hari Palmer IRON AND TIBCon 12-03-2021 % SATURATION 19.0 % Normal [facility] Comment on above: Performed By: #### M Edy URIC, RENAL #### [facility] Laboratory [address] [place] [address] Dr. Hari Palmer Iron [Mass/Vol] 52.0 ug/dL Normal 37.0-170.0 [facility] Comment on above: Performed By: #### M Edy, URIC, RENAL #### [facility] Laboratory [address] [place] [address] Dr. Hari Palmer TIBC DIRECT 273.0 ug/dL Normal 261.0-497.0 [facility] Comment on above: Performed By: #### M Edy, URIC, RENAL #### [facility] Laboratory [address] [place] [address] Dr. Hari Palmer MAGNESIUMon 12-03-2021 Magnesium [Mass/Vol] 2.1 mg/dL Normal 1.6-2.3 [facility] Comment on above: Performed By: #### Xiomara G, URIC, RENAL #### [facility] Laboratory [address] [address] [address] Hari Palmer RENAL FUNCTION PANELon 12-03 Albumin [Mass/Vol] 3.6 g/dL Normal 3.5-5.0 [facility] Comment on above: Performed By: #### M G, URIC, RENAL #### [facility] Laboratory [address] [place] [address] Dr. Hari Palmer Calcium [Mass/Vol] 8.4 mg/dL Normal 8.4-10.2 [facility] Comment on above: Performed By: #### M G, URIC, RENAL #### [facility] Laboratory [address] [place] [address] Dr. Hari Palmer Chloride [Moles/Vol] 101 mmol/L Normal 98-107 [facility] Comment on above: Performed By: #### M G, URIC, RENAL #### [facility] Laboratory [address] [place] [address] Dr. Hari Palmer CO2 [Moles/Vol] 24.3 mmol/L Normal 22.0-30.0 [facility] Comment on above: Performed By: #### M G, URIC, RENAL #### [facility] Laboratory [address] [place] [address] Dr. Hari Palmer Creatinine [Mass/Vol] 3.32 mg/dL Critically high 0.52-1.04 [facility] Comment on above: Performed By: #### M G, URIC, RENAL #### [facility] Laboratory [address] [place] [address] Dr. Hari Palmer EGFR-AF [place] 18 mL/min/1.73m2 Critically low >=60 [facility] Comment on above: Performed By: #### M G, URIC, RENAL #### [facility] Laboratory [address] [place] [address] Dr. Hari Palmer EGFR-NON AF CA[place]DIAN 15 mL/min/1.73m2 Critically low >=60 [facility] Comment on above: Performed By: #### M G, URIC, RENAL #### [facility] Laboratory [address] [address] [address] Hari Palmer Glucose [Mass/Vol] 119 mg/dL Critically high 74-106 [facility] Comment on above: Performed By: #### M G, URIC, RENAL #### [facility] Laboratory [address] [place] [address] Dr. Hari Palmer Phosphate [Mass/Vol] 4.7 mg/dL Critically high 2.5-4.5 [facility] Comment on above: Performed By: #### M G, URIC, RENAL #### [facility] Laboratory [address] [place] [address] Dr. Hari Palmer Potassium [Moles/Vol] 4.0 mmol/L Normal 3.4-5.0 [facility] Comment on above: Performed By: #### M G, URIC, RENAL #### [facility] Laboratory [address] [place] [address] Dr. Hari Palmer Sodium [Moles/Vol] 135 mmol/L Critically low 137-145 Th [facility] Comment on above: Performed By: #### M G, URIC, RENAL #### [facility] Laboratory [address] [place] [address] Dr. Hari Palmer Urea nitrogen [Mass/Vol] 42.0 mg/dL Critically high 7.0-17.0 [facility] Comment on above: Performed By: #### M G, URIC, RENAL #### [facility] Laboratory [address] [place] [address] Dr. Hari Palmer UA RANDOM W/MICROSCOPICon BACTERIA TRACE Abnormal NONE SEEN The [facility] Comment on above: Performed By: #### U AMIC #### [facility] Laboratory [address] [place] [address] Dr. Hari Palmer Bilirubin Ql (U) Negative Normal NEGATIVE The [facility] Comment on above: Performed By: #### U AMIC #### [facility] [address] [place] [address] Dr. Hari Palmer CAST NONE SEEN Normal NONE SEEN [facility] Comment on above: Performed By: #### U AMIC #### [facility] Laboratory [address] [place] [address] Dr. Hari Palmer Clarity (U) CLEAR Normal CLEAR The [facility] Comment on above: Performed By: #### U AMIC #### [facility] [address] [address] [address] Hari Palmer Color (U) LT. YELLOW Normal YELLOW The [facility] Comment on above: Performed By: #### U AMIC #### [facility] Laboratory [address] [address] [address] Hari Palmer Crystals LM Nom (Urine sed) NONE SEEN Normal NONE SEEN [facility] Comment on above: Performed By: #### U AMIC #### [facility] Laboratory [address] [address] [address] Hari Palmer Epithelial cells LM Ql (Urine sed) FEW Abnormal NONE SEEN /RARE The [facility] Comment on above: Performed By: #### U AMIC #### [facility] Laboratory [address] [address] [address] Hari Palmer Glucose Ql (U) 100 mg/dl Abnormal NEGATIVE [facility] Comment on above: Performed By: #### U AMIC #### [facility] Laboratory [address] [address] [address] Hari Palmer Hemoglobin Ql (U) TRACE-INTACT Abnormal NEGATIVE [facility] Comment on above: Performed By: #### U AMIC #### [facility] Laboratory [address] [address] [address] Hari Palmer Ketones Ql (U) Negative Normal NEGATIVE The [facility] Comment on above: Performed By: #### U AMIC #### [facility] [address] [address] [address] Hari Palmer LEUKOCYTES SMALL Abnormal NEGATIVE The [facility] Comment on above: Performed By: #### U AMIC #### [facility] [address] [address] [address] Hari Palmer MUCOUS NONE SEEN Normal NONE SEEN [facility] Comment on above: Performed By: #### U AMIC #### [facility] [address] [address] [address] Hari Palmer Nitrite Ql (U) Negative Normal NEGATIVE The [facility] Comment on above: Performed By: #### U AMIC #### [facility] Laboratory [address] [place] [address] Dr. Hari Palmer pH (U) 6.0 [pH] Normal 5-9 [facility] Comment on above: Performed By: #### U AMIC #### [facility] Laboratory [address] [place] [address] Dr. Hari Palmer RBC 0-2 Normal 0-2 [facility] Comment on above: Performed By: #### U AMIC #### [facility] [address] [place] [address] Dr. Hari Palmer SPEC GRAVITY 1.010 Normal 1.005-<=1.02 5 [facility] Comment on above: Performed By: #### U AMIC #### [facility] Laboratory [address] [place] [address] Dr. Hari Palmer UA PROTEIN Negative Normal NEGATIVE/ TRACE The [facility] Comment on above: Performed By: #### U AMIC #### [facility] Laboratory [address] [place] [address] Dr. Hari Palmer Urobilinogen Qn (U) 0.2 {Janice'U}/dL Normal 0.2 - 1. 0 [facility] Comment on above: Performed By: #### U AMIC #### [facility] Laboratory [address] [place] [address] Dr. Hari Palmer WBC 5-10 Abnormal NONE SEEN The [facility] Comment on above: Performed By: #### U AMIC #### [facility] [address] [place] [address] Dr. Hari Palmer URIC ACID SERUMon 12-03-2021 Urate [Mass/Vol] 4.6 mg/dL Normal 2.5-6.2 [facility] Comment on above: Performed By: #### M G, URIC, RENAL #### [facility] Laboratory [address] [place] [address] Dr. Hari Palmer URINE T PROTEIN CREAT RATIOo n 12-03-2021 Protein (U) [Mass/Vol] 31.7 mg/dL Critically high <=12.0 [facility] Comment on above: Performed By: #### M G, URIC, RENAL #### [facility] Laboratory [address] [place] [address] Dr. Hari Palmer UR PROT CREAT RAT 0.54 Normal The [facility] Comment on above: Performed By: #### M G, URIC, RENAL #### [facility] Laboratory [address] [place] [address] Dr. Hari Palmer URINE CREAT 59.03 mg/dL Normal 20.00-300.00 [facility] Comment on above: Performed By: #### M G, URIC, RENAL #### [facility] Laboratory [address] [place] [address] Dr. Hari Palmer VITAMIN D 25 OHon 12-03-2021 VIT D 25-OH 38.1 ng/mL Normal The [facility] Comment on above: Performed By: #### M G, URIC, RENAL #### [facility] Laboratory [address] [place] [address] Dr. Hari Palmer VIT D RANGES SEE BELOW Normal [facility] [facility] [place] Comment on above: Result Comment: <20 ng/mL Vit D deficient 20 - <30 ng/mL Vit D insufficient 30 - 100 ng/mL Vit D sufficient >100 ng/mL Potential Toxicity Performed By: #### M G, URIC, RENAL #### [facility] [place] [facility] [address] [place] [address] Dr. Hari Palmer PTH INTACTon 09-03-2021 PTH, Intact 177 pg/mL Critically high 15-65 [facility] Comment on above: Performed By: #### P THINT #### [facility] [place] [facility] [address] [place] [address] Dr. Hari Palmer CBC AUTO DIFFon 09-01-2021 BASO # 0.1 103/ul Normal 0.0-0.1 [facility] Comment on above: Performed By: #### M G, URIC, RENAL #### [facility] [place] [facility] [address] [place] [address] Dr. Hari Palmer Basophils/100 WBC (Bld) 0.6 % Normal 0.2-2.0 [facility] Comment on above: Performed By: #### M G, URIC, RENAL #### [facility] [place] [facility] [address] [place] [address] Dr. Hari Palmer EO # 0.3 103/ul Normal 0.0-0.7 [facility] [place] Comment on above: Performed By: #### M G, URIC, RENAL #### [facility] [place] [facility] [address] [address] [address] Hari Palmer Eosinophils/100 WBC (Bld) 3.5 % Normal 0.9-7.0 [facility] [place] Comment on above: Performed By: #### M G, URIC, RENAL #### [facility] [place] [facility] [address] [place] [address] Dr. Hari Palmer Erythrocyte distribution width (RBC) [Ratio] 13.8 % Normal 11.0-15.0 [facility] [place] Comment on above: Performed By: #### M G, URIC, RENAL #### [facility] [place] [facility] [address] [place] [address] Dr. Hari Palmer Hematocrit (Bld) [Volume fraction] 32.8 % Critically low 36.0-48.0 [facility] Comment on above: Performed By: #### M G, URIC, RENAL #### [facility] [place] [facility] [address] [place] [address] Dr. Hari Palmer Hemoglobin (Bld) [Mass/Vol] 10.6 g/dL Critically low 12.0-16.0 [facility] Comment on above: Performed By: #### M G, URIC, RENAL #### [facility] [place] [facility] [address] [place] [address] Dr. Hari Palmer IG # 0.14 10e3/ul Critically high 0.00-0.03 [facility] [place] Comment on above: Performed By: #### M G, URIC, RENAL #### [facility] [place] [facility] [address] [place] [address] Dr. Hari Palmer IG % 1.5 % Critically high 0.0-0.5 [facility] [place] Comment on above: Performed By: #### M G, URIC, RENAL #### [facility] [place] [facility] [address] [place] [address] Dr. Hari Palmer LYMPH # 1.8 103/ul Normal 1.2-3.8 The [facility] [place] Comment on above: Performed By: #### M G, URIC, RENAL #### [facility] [place] [facility] [address] [place] [address] Dr. Hari Palmer Lymphocytes/100 WBC (Bld) 19.3 % Critically low 20.5-60.0 [facility] Comment on above: Performed By: #### M G, URIC, RENAL #### [facility] [place] [facility] [address] [place] [address] Dr. Hari Palmer MANUAL DIFF REQ NO Normal The [facility] [place] Comment on above: Performed By: #### M G, URIC, RENAL #### [facility] [place] [facility] [address] [place] [address] Dr. Hari Palmer MCH (RBC) [Entitic mass] 31.4 pg Normal 26.7-34.0 [facility] Comment on above: Performed By: #### M G, URIC, RENAL #### [facility] [place] [facility] [address] [place] [address] Dr. Hari Palmer MCHC (RBC) [Mass/Vol] 32.3 g/dL Normal 29.9-35.2 [facility] Comment on above: Performed By: #### M G, URIC, RENAL #### [facility] [place] [facility] [address] [place] [address] Dr. Hari Palmer MCV (RBC) [Entitic vol] 97.0 fL Normal 81.0-99.0 [facility] Comment on above: Performed By: #### M G, URIC, RENAL #### [facility] [place] [facility] [address] [place] [address] Dr. Hari Palmer MONO # 0.4 103/ul Normal 0.3-0.8 [facility] [place] Comment on above: Performed By: #### M G, URIC, RENAL #### [facility] [place] [facility] [address] [place] [address] Dr. Hari Palmer Monocytes/100 WBC (Bld) 4.2 % Normal 1.7-12.0 [facility] Comment on above: Performed By: #### M G, URIC, RENAL #### [facility] [place] [facility] [address] [place] [address] Dr. Hari Palmer NEUT # 6.5 103/ul Normal 1.4-6.5 [facility] [place] Comment on above: Performed By: #### M Edy, URIC, RENAL #### [facility] [place] [facility] [address] [place] [address] Dr. Hari Palmer Neutrophils/100 WBC (Bld) 70.9 % Normal 43.0-75.0 [facility] [place] Comment on above: Performed By: #### M Edy, URIC, RENAL #### [facility] [place] [facility] [address] [place] [address] Dr. Hari Palmer Platelet mean volume (Bld) [Entitic vol] 9.0 fL Critically low 9.5-13.5 [facility] [place] Comment on above: Performed By: #### M Edy URIC, RENAL #### [facility] [place] [facility] [address] [place] [address] Dr. Hari Palmer PLT 289 103/ul Normal 150-450 [facility] [place] Comment on above: Performed By: #### Xiomara Snow URIC, RENAL #### [facility] [place] [facility] [address] [place] [address] Dr. Hari Palmer RBC 3.38 106/ul Critically low 4.20-5.40 [facility] [place] Comment on above: Performed By: #### M Edy URIC, RENAL #### [facility] [place] [facility] [address] [place] [address] Dr. Hari Palmer WBC 9.1 103/ul Normal 4.0-11.0 [facility] [place] Comment on above: Performed By: #### M Edy, URIC, RENAL #### [facility] [place] [facility] [address] [place] [address] Dr. Hari Palmer FERRITINon 09-01-2021 Ferritin [Mass/Vol] 204.0 ng/mL Critically high 6.2-137.0 [facility] [place] Comment on above: Performed By: #### M G, URIC, RENAL #### [facility] [place] [facility] [address] [place] [address] Dr. Hari Palmer IRON AND TIBCon 09-01-2021 % SATURATION 28.4 % Normal The [facility] [place] Comment on above: Performed By: #### M G, URIC, RENAL #### [facility] [place] [facility] [address] [place] [address] Dr. Hari Palmer Iron [Mass/Vol] 80.0 ug/dL Normal 37.0-170.0 [facility] [place] Comment on above: Performed By: #### M G, URIC, RENAL #### [facility] [place] [facility] [address] [place] [address] Dr. Hari Palmer TIBC DIRECT 282.0 ug/dL Normal 261.0-497.0 [facility] [place] Comment on above: Performed By: #### M G, URIC, RENAL #### [facility] [place] [facility] [address] [place] [address] Dr. Hari Palmer MAGNESIUMon 09-01-2021 Magnesium [Mass/Vol] 2.2 mg/dL Normal 1.6-2.3 [facility] [place] Comment on above: Performed By: #### U AMIC #### [facility] [place] [facility] [address] [place] [address] Dr. Hari Palmer RENAL FUNCTION PANELon 09-01 Albumin [Mass/Vol] 3.5 g/dL Normal 3.5-5.0 [facility] [place] Comment on above: Performed By: #### M G, URIC, RENAL #### [facility] [place] [facility] [address] [place] [address] Dr. Hari Palmer Calcium [Mass/Vol] 8.7 mg/dL Normal 8.4-10.2 [facility] [place] Comment on above: Performed By: #### M G, URIC, RENAL #### [facility] [place] [facility] [address] [place] [address] Dr. Hari Palmer Chloride [Moles/Vol] 105 mmol/L Normal 98-107 [facility] [place] Comment on above: Performed By: #### M G, URIC, RENAL #### [facility] [place] [facility] [address] [place] [address] Dr. Hari Palmer CO2 [Moles/Vol] 21.1 mmol/L Critically low 22.0-30.0 [facility] [place] Comment on above: Performed By: #### M G, URIC, RENAL #### [facility] [place] [facility] [address] [place] [address] Dr. Hari Palmer Creatinine [Mass/Vol] 3.63 mg/dL Critically high 0.52-1.04 [facility] Comment on above: Performed By: #### M G, URIC, RENAL #### [facility] [place] [facility] [address] [address] [address] Hari Palmer EGFR-AF CANADIAN 16 mL/min/1.73m2 Critically low >=60 [facility] Comment on above: Performed By: #### M G, URIC, RENAL #### [facility] [place] [facility] [address] [address] [address] Hari Palmer EGFR-NON AF CANADIAN 14 mL/min/1.73m2 Critically low >=60 [facility] Comment on above: Performed By: #### M Edy, URIC, RENAL #### [facility] [place] [facility] [address] [place] [address] Dr. Hari Palmer Glucose [Mass/Vol] 115 mg/dL Critically high 74-106 [facility] Comment on above: Performed By: #### M G, URIC, RENAL #### [facility] [place] [facility] [address] [place] [address] Dr. Hari Palmer Phosphate [Mass/Vol] 4.6 mg/dL Critically high 2.5-4.5 [facility] Comment on above: Performed By: #### M Edy, URIC, RENAL #### [facility] [place] [facility] [address] [place] [address] Dr. Hari Palmer Potassium [Moles/Vol] 4.2 mmol/L Normal 3.4-5.0 [facility] Comment on above: Performed By: #### M G, URIC, RENAL #### [facility] [place] [facility] [address] [place] [address] Dr. Hari Palmer Sodium [Moles/Vol] 138 mmol/L Normal 137-145 [facility] Comment on above: Performed By: #### M G, URIC, RENAL #### [facility] [place] [facility] [address] [place] [address] Dr. Hari Palmer Urea nitrogen [Mass/Vol] 50.0 mg/dL Critically high 7.0-17.0 [facility] Comment on above: Performed By: #### M G, URIC, RENAL #### [facility] [place] [facility] [address] [address] [address] Hari Palmer UA RANDOM W/MICROSCOPICon BACTERIA SMALL Abnormal NONE SEEN The [facility] [place] Comment on above: Performed By: #### U AMIC #### [facility] [place] [facility] [address] [address] [address] Hari Palmer Bilirubin Ql (U) Negative Normal NEGATIVE The [facility] [place] Comment on above: Performed By: #### U AMIC #### [facility] [place] [facility] [address] [address] [address] Hari Palmer CAST NONE SEEN Normal NONE SEEN The [facility] [place] Comment on above: Performed By: #### U AMIC #### [facility] [place] [facility] [address] [address] [address] Hari Palmer Clarity (U) CLEAR Normal CLEAR [facility] [place] Comment on above: Performed By: #### U AMIC #### [facility] [place] [facility] [address] [address] [address] Hari Palmer Color (U) LT. YELLOW Normal YELLOW The [facility] [place] Comment on above: Performed By: #### U AMIC #### [facility] [place] [facility] [address] [address] [address] Hari Palmer Crystals LM Nom (Urine sed) NONE SEEN Normal NONE SEEN The [facility] [place] Comment on above: Performed By: #### U AMIC #### [facility] [place] [facility] [address] [address] [address] Hari Palmer Epithelial cells LM Ql (Urine sed) MODERATE Abnormal NONE SEEN /RARE The [facility] [place] Comment on above: Performed By: #### U AMIC #### [facility] [place] [facility] [address] [address] [address] Hari Palmer Glucose Ql (U) Negative Normal NEGATIVE The [facility] [place] Comment on above: Performed By: #### U AMIC #### [facility] [place] [facility] [address] [place] [address] Dr. Hari Palmer Hemoglobin Ql (U) TRACE-INTACT Abnormal NEGATIVE The [facility] [place] Comment on above: Performed By: #### U AMIC #### [facility] [place] [facility] [address] [address] [address] Hari Palmer Ketones Ql (U) Negative Normal NEGATIVE [facility] Comment on above: Performed By: #### U AMIC #### [facility] [place] [facility] [address] [place] [address] Dr. Hari Palmer LEUKOCYTES Negative Normal NEGATIVE [facility] Comment on above: Performed By: #### U AMIC #### [facility] [place] [facility] [address] [place] [address] Dr. Hari Palmer MUCOUS NONE SEEN Normal NONE SEEN The [facility] [place] Comment on above: Performed By: #### U AMIC #### [facility] [place] [facility] [address] [place] [address] Dr. Hari Palmer Nitrite Ql (U) Negative Normal NEGATIVE [facility] [place] Comment on above: Performed By: #### U AMIC #### [facility] [place] [facility] [address] [place] [address] Dr. Hari Palmer pH (U) 6.0 [pH] Normal 5-9 [facility] [place] Comment on above: Performed By: #### U AMIC #### [facility] [place] [facility] [address] [place] [address] Dr. Hari Palmer RBC 2-5 Abnormal 0-2 [facility] Comment on above: Performed By: #### U AMIC #### [facility] [place] [facility] [address] [place] [address] Dr. Hari Palmer SPEC GRAVITY 1.010 Normal 1.005-<=1.02 5 [facility] Comment on above: Performed By: #### U AMIC #### [facility] [place] [facility] [address] [place] [address] Dr. Hari Palmer UA PROTEIN Negative Normal NEGATIVE/ TRACE [facility] [place] Comment on above: Performed By: #### U AMIC #### [facility] [place] [facility] [address] [place] [address] Dr. Hari Palmer Urobilinogen Qn (U) 0.2 {Janice'U}/dL Normal 0.2 - 1. 0 [facility] Comment on above: Performed By: #### U AMIC #### [facility] [place] [facility] [address] [place] [address] Dr. Hari Palmer WBC 2-5 Abnormal NONE SEEN The [facility] [place] Comment on above: Performed By: #### U AMIC #### [facility] [place] [facility] [address] [address] [address] Hari Palmer URIC ACID SERUMon 09-01-2021 Urate [Mass/Vol] 4.9 mg/dL Normal 2.5-6.2 [facility] [place] Comment on above: Performed By: #### U AMIC #### [facility] [place] [facility] [address] [address] [address] Hari Palmer URINE T PROTEIN CREAT RATIOo n 09-01-2021 Protein (U) [Mass/Vol] 22.2 mg/dL Critically high <=12.0 [facility] Comment on above: Performed By: #### M G, URIC, RENAL #### [facility] [place] [facility] [address] [place] [address] Dr. Hari Palmer UR PROT CREAT RAT 0.47 Normal [facility] [place] Comment on above: Performed By: #### M G, URIC, RENAL #### [facility] [place] [facility] [address] [place] [address] Dr. Hari Palmer URINE CREAT 46.89 mg/dL Normal 20.00-300.00 [facility] [place] Comment on above: Performed By: #### M G, URIC, RENAL #### [facility] [place] [facility] [address] [place] [address] Dr. Hari Palmer VITAMIN D 25 OHon 09-01-2021 VIT D 25-OH 40.5 ng/mL Normal [facility] [place] Comment on above: Performed By: #### M G, URIC, RENAL #### [facility] [place] [facility] [address] [place] [address] Dr. Hari Palmer VIT D RANGES SEE BELOW Normal The [facility] [place] Comment on above: Result Comment: <20 ng/mL Vit D deficient 20 - <30 ng/mL Vit D insufficient 30 - 100 ng/mL Vit D sufficient >100 ng/mL Potential Toxicity Performed By: #### M G, URIC, RENAL #### [facility] [place] [facility] [address] [place] [address] Dr. Hari Palmer CNOVon 03-30-2021 CNOV Office Visit (NEPHMN ) ----- MANDEEP PURI ([id number]) 1975 F Date Time Provider Department 03/30/21 9:20 AM PERRI BARRETT NEPHMN During your visit today, we recorded the following information about you: Temperature Pulse Blood pressure Weight 98.2 degrees 75/minute 122/77 93 kg Height 1.549 m Perri Barrett MD 03/30/2021 10:25 AM Signed Mrs. 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 (more content not included)... Normal [facility] Urinalysison 03-30-2021 Bilirubin, Urine Negative Normal Negative Raffy oconnor [facility] Comment on above: Performed By: #### U A #### [address] [address] Clarity (U) Clear Normal Clear [facility] Comment on above: Performed By: #### U A #### [facility] [address] [address] Color (U) Colorless Critically abnormal Yellow [facility] Comment on above: Performed By: #### U A #### [facility] [address] [place], [place] [address] Comments SEE COMMENT Normal [facility] Comment on above: Result Comment: Micr oscopic not warranted Performed By: #### U A #### [facility] [address] [address] Glucose Ql (U) Trace Critically abnormal Negative [facility] Comment on above: Performed By: #### U A #### [address] [phone] Hemoglobin/Blood,Ur Negative Normal Negative [facility] Comment on above: Performed By: #### U A #### [facility] [address] [phone] Ketones Ql (U) Negative Normal Negative [facility] Comment on above: Performed By: #### U A #### [facility] [address] [address] Leukest Negative Normal Negative [facility] Comment on above: Performed By: #### U A #### [facility] [address] [address] Nitrite Ql (U) Negative Normal Negative [facility] Comment on above: Performed By: #### U A #### [facility] [address] [place], [place] [address] pH (U) 6.5 [pH] Normal 5.0-8.0 [facility] Comment on above: Performed By: #### U A #### [facility] [address] [place], [place] [address] Protein, Urine Negative Normal Negative [facility] Comment on above: Performed By: #### U A #### [facility] [address] [address] Specific [place], Ur 1.008 Normal 1.005-1.030 [facility] Comment on above: Performed By: #### U A #### [facility] [address] [address] Urine Codi Comment SEE COMMENT Normal [facility] Comment on above: Result Comment: N/A Performed By: #### U A #### [facility] [address] Urobilinogen (U) [Mass/Vol] Negative Normal Negative [facility] Comment on above: Performed By: #### U A #### [address] [address] Coding Summary.on 04-21-2020 Coding Summary. CODING DATE: 020 [facility] STATUS: Home (Routine DC) PAYOR: Medical Winston ADMIT DX: REASON FOR VISIT DX: Z20.828 [...] CphT Date Saved: 04/21/2020 05:17 pm Normal [facility] Physician Orderon 04-21-2020 Physician Order [id number] Normal [facility] Marci 04-12-2020 ALT [Catalytic activity/Vol] 14 U/L Normal 7 - 45 [facility] Comment on above: Result Comment: Kelsea ents treated with Sulfasalazine may generate falsely decreased results for ALT. Performed By: #### A LT #### [facility] [address] [place] [address] Ronald 04-12-2020 AST [Catalytic activity/Vol] 16 U/L Normal 9 - 39 [facility] Comment on above: Performed By: #### A ST #### [facility] [address] [place] [address] CREATININEon 04-12-2020 Creatinine [Mass/Vol] 2.83 mg/dL High 0.50 - 1.05 [facility] Comment on above: Performed By: #### C REAT #### [facility] [address] [place] [address] Creatinine [Mass/Vol] 18 mL/min/1.73m2 Abnormal >60 [facility] Comment on above: Performed By: #### C REAT #### [facility] [address] [place] [address] Creatinine [Mass/Vol] 22 mL/min/1.73m2 Abnormal >60 [facility] Comment on above: Result Comment: CALC ULATIONS OF ESTIMATED GFR ARE PERFORMED USING THE MDRD STUDY EQUATION FOR THE IDMS-TRACEABLE CREATININE METHODS. CLIN CHEM 2007;53:766-72 Performed By: #### C REAT #### [facility] [address] [place] [address] URIC ACIDon 04-12-2020 Urate [Mass/Vol] 5.2 mg/dL Normal 2.3 - 6.7 [facility] Comment on above: Result Comment: Beti puncture immediately after or during the administration of Metamizole may lead to falsely low results. Testing should be performed immediately prior to Metamizole dosing. Performed By: #### U DICK #### [facility] [address] [place] [address] URIC ACIDon 02-11-2020 Urate [Mass/Vol] 8.2 mg/dL High 2.3 - 6.7 [facility] Comment on above: Result Comment: Beti puncture immediately after or during the administration of Metamizole may lead to falsely low results. Testing should be performed immediately prior to Metamizole dosing. Performed By: #### U DICK #### [facility] [address] [place] [address] Cult,Urineon 08-04-2019 Cult,Urine Specimen Description .CLEAN CATCH URINE Special Requests NOT REPORTED Culture ESCHERICHIA COLI >[id number] CFU/ML Report Status FINAL 08/04/2019 SUSCEPTIBILITY Organism [...] Trimethoprim/Sulfa <=20 SUSCEPTIBLE Piperacillin/Tazobactam <=4 SUSCEPTIBLE Normal [facility] Comment on above: Performed By: #### D CITLALY, LIP, CMPX, TROPI, BNP, CDP, PT #### [facility] [address] [place] [address] [employer]: Sami Dominguez MD Brain Natri. Peptideon 08-02 Natriuretic peptide B (Bld) [Mass/Vol] 152 pg/mL Normal <300 [facility] Comment on above: Result Comment: Pro- BNP results cannot be compared to BNP results. Performed By: #### D CITLALY, LIP, CMPX, TROPI, BNP, CDP, PT #### [facility] [address] [place] [address] [employer]ort Blind: Sami Dominguez MD Natriuretic peptide B (Bld) [Mass/Vol] Pro-BNP Reference Range: Normal [facility] Comment on above: Result Comment: Rule Out: <300 Parra Zone: Age <50 300-450 Age 50-75 300-900 Age >75 300-1800 Usually represents mild to moderate HF but other cardiopulmonary causes cannot be ruled out. Rule In: Age <50 >450 Age 50-75 >900 Age >75 >1800 Performed By: #### D CITLALY, LIP, CMPX, TROPI, BNP, CDP, PT #### [facility] [address] [place] [address] [employer]: Sami Dominguez MD Brain Natriuretic Peptideon 08-02-2019 Natriuretic peptide B (Bld) [Mass/Vol] 152 pg/mL <300 [place] Comment on above: Pro-BNP results eric ot be compared to BNP results. Natriuretic peptide B (Bld) [Mass/Vol] Pro-BNP Reference Range: [place] Comment on above: Rule Out: <300 Parra Zone: Age <50 300-450 Age 50-75 300-900 Age >75 300-1800 Usually represents mild to moderate HF but other cardiopulmonary causes cannot be ruled out. Rule In: Age <50 >450 Age 50-75 >900 Age >75 >1800 CBC Auto Differentialon 07-07 Basophils (Bld) [#/Vol] 0.00 10*3/uL [place] Basophils/100 WBC (Bld) 0 % 0 - 2 % [place] Differential Type NOT REPORTED [place] Eosinophils (Bld) [#/Vol] 0.08 10*3/uL [place] Eosinophils/100 WBC (Bld) 1 % 1 - 4 % [place] Erythrocyte distribution width (RBC) [Ratio] 13.2 % 11.8 - 14.4 % [place] Hematocrit (Bld) [Volume fraction] 33.7 % Low 36.3 - 47.1 % [place] Hemoglobin (Bld) [Mass/Vol] 10.7 g/dL Low 11.9 - 15.1 g/dL [place] Immature granulocytes (Bld) [#/Vol] 0 % 0 [place] Immature granulocytes (Bld) [#/Vol] 0.00 10*3/uL [place] Lymphocytes (Bld) [#/Vol] 0.90 10*3/uL Low [place] Lymphocytes/100 WBC (Bld) 12 % Low 24 - 43 % [place] MCH (RBC) [Entitic mass] 30.2 pg 25.2 - 33.5 pg [place] MCHC (RBC) [Mass/Vol] 31.8 g/dL 28.4 - 34.8 g/dL [place] MCV (RBC) [Entitic vol] 95.2 fL 82.6 - 102.9 fL [place] Monocytes (Bld) [#/Vol] 0.00 10*3/uL Low [place] Monocytes/100 WBC (Bld) 0 % Low 3 - 12 % [place] Morphology Geovany (Bld) [Interp] Normal [place] Platelet mean volume (Bld) [Entitic vol] 8.6 fL 8.1 - 13.5 fL [place] Platelets (Bld) [#/Vol] NOT REPORTED [place] Platelets (Bld) [#/Vol] 335 10*3/uL [place] RBC (Bld) [#/Vol] 3.54 10*6/uL Low 3.95 - 5.1 1 m/uL [place] RBC morphology finding Nom (Bld) NOT REPORTED [place] Segmented neutrophils/100 WBC (Bld) 87 % High 36 - 65 % [place] Segs Absolute 6.52 [place] WBC (Bld) [#/Vol] 7.5 10*3/uL [place] WBC (Bld) [#/Vol] 0.0 10*3/uL 0.0 per 10 0 WBC [place] WBC Morphology NOT REPORTED [place] CBC with Diffon 08-02-2019 Abs. Basophil 0.00 k/uL Normal 0.0-0.2 [facility] Comment on above: Performed By: #### D CITLALY, LIP, CMPX, TROPI, BNP, CDP, PT #### [facility] [address] [place] [address] [employer]: Sami Dominguez MD Abs.Imm.Granulocyte 0.00 k/uL Normal 0.00-0.30 [facility] Comment on above: Performed By: #### D CITLALY, LIP, CMPX, TROPI, BNP, CDP, PT #### [facility] [address] [place], [place] [id number] [employer]: Sami Dominguez MD Abs.Neutrophil (Seg) 6.52 k/uL Normal 1.50-8.10 [facility] Comment on above: Performed By: #### D CITLALY, LIP, CMPX, TROPI, BNP, CDP, PT #### [facility] [address] [place], [place] [address] Escort Blind: Sami Dominguez MD Auto Diff Performed NOT REPORTED Normal [facility] Comment on above: Performed By: #### D CITLALY, LIP, CMPX, TROPI, BNP, CDP, PT #### [address] [place], [facility] [employer] Blind: Sami Dominguez MD Basophils/100 WBC (Bld) 0 % Normal 0-2 [facility] Comment on above: Performed By: #### D CITLALY, LIP, CMPX, TROPI, BNP, CDP, PT #### [address] [place], [facility] [employer]: Sami Dominguez MD Eosinophils (Bld) [#/Vol] 0.08 10*3/uL Normal 0.00-0.44 [facility] Comment on above: Performed By: #### D CITLALY, LIP, CMPX, TROPI, BNP, CDP, PT #### [address] [place], [facility] [employer] Blind: Sami Dominguez MD Eosinophils/100 WBC (Bld) 1 % Normal 1-4 [facility] Comment on above: Performed By: #### D CITLALY, LIP, CMPX, TROPI, BNP, CDP, PT #### [address] [place], [facility] [employer] Blind: Sami Dominguez MD Erythrocyte distribution width (RBC) [Ratio] 13.2 % Normal 11.8-14.4 [facility] Comment on above: Performed By: #### D CITLALY, LIP, CMPX, TROPI, BNP, CDP, PT #### [facility] [address] [place] [id number] [employer] Blind: Sami Dominguez MD Hematocrit (Bld) [Volume fraction] 33.7 % Low 36.3-47.1 [facility] Comment on above: Performed By: #### D CITLALY, LIP, CMPX, TROPI, BNP, CDP, PT #### [facility] [address] [place], [facility] [employer] Blind: Sami Dominguez MD Hemoglobin (Bld) [Mass/Vol] 10.7 g/dL Low 11.9-15.1 [facility] Comment on above: Performed By: #### D CITLALY, LIP, CMPX, TROPI, BNP, CDP, PT #### [address] [place], [place] [address] [employer] Blind: Sami Dominguez MD Immature granulocytes (Bld) [#/Vol] 0 % Normal 0 [facility] Comment on above: Performed By: #### D CITLALY, LIP, CMPX, TROPI, BNP, CDP, PT #### [address] [place] [id number] [employer]: Sami Dominguez MD Lymphocytes (Bld) [#/Vol] 0.90 10*3/uL Low 1.10-3.70 [facility] Comment on above: Performed By: #### D CITLALY, LIP, CMPX, TROPI, BNP, CDP, PT #### [facility] [address] [place] [id number] [employer]: Sami Dominguez MD Lymphocytes/100 WBC (Bld) 12 % Low 24-43 [facility] Comment on above: Performed By: #### D CITLALY, LIP, CMPX, TROPI, BNP, CDP, PT #### [facility] [address] [place] [facility] [employer] Blind: Sami Dominguez MD MCH (RBC) [Entitic mass] 30.2 pg Normal 25.2-33.5 [facility] Comment on above: Performed By: #### D CITLALY, LIP, CMPX, TROPI, BNP, CDP, PT #### [facility] [address] [place] [facility] [employer] Blind: Sami Dominguez MD MCHC (RBC) [Mass/Vol] 31.8 g/dL Normal 28.4-34.8 [facility] Comment on above: Performed By: #### D CITLALY, LIP, CMPX, TROPI, BNP, CDP, PT #### [address] [place] [facility] [employer] Blind: Sami Dominguez MD MCV (RBC) [Entitic vol] 95.2 fL Normal 82.6-102.9 [facility] Comment on above: Performed By: #### D CITLALY, LIP, CMPX, TROPI, BNP, CDP, PT #### [address] [place] [facility] [employer] Blind: Sami Dominguez MD Monocytes (Bld) [#/Vol] 0.00 10*3/uL Low 0.10-1.20 [facility] Comment on above: Performed By: #### D CITLALY, LIP, CMPX, TROPI, BNP, CDP, PT #### [facility] [address] [place] [address] Dr. [place], [facility] [employer] Blind: Sami Dominguez MD Monocytes/100 WBC (Bld) 0 % Low 3-12 [facility] Comment on above: Performed By: #### D CITLALY, LIP, CMPX, TROPI, BNP, CDP, PT #### [address] [place], [facility] [employer] Blind: Sami Dominguez MD Morphology Geovany (Bld) [Interp] Normal Normal [facility] Comment on above: Performed By: #### D CITLALY, LIP, CMPX, TROPI, BNP, CDP, PT #### [facility] [address] [place] [address] [employer] Blind: Sami Dominguez MD Neutrophil (Seg) 87 % High 36-65 [facility] Comment on above: Performed By: #### D CITLALY, LIP, CMPX, TROPI, BNP, CDP, PT #### [facility] [address] [place] [address] [employer] Blind: Sami Dominguez MD NRBC Automated 0.0 per 100 WBC Normal 0.0 [facility] Comment on above: Performed By: #### D CITLALY, LIP, CMPX, TROPI, BNP, CDP, PT #### [facility] [address] [place], [facility] [employer]: Sami Dominguez MD Platelet mean volume (Bld) [Entitic vol] 8.6 fL Normal 8.1-13.5 [facility] Comment on above: Performed By: #### D CITLALY, LIP, CMPX, TROPI, BNP, CDP, PT #### [address] [place] [address] [employer] Blind: Sami Dominguez MD Platelets (Bld) [#/Vol] NOT REPORTED Normal [facility] Comment on above: Performed By: #### D CITLALY, LIP, CMPX, TROPI, BNP, CDP, PT #### [facility] [address] [place] [address] [employer]: Sami Dominguez MD Platelets (Bld) [#/Vol] 335 10*3/uL Normal 138-453 [facility] Comment on above: Performed By: #### D CITLALY, LIP, CMPX, TROPI, BNP, CDP, PT #### [facility] [address] [place] [address] [employer] Blind: Sami Dominguez MD RBC (Bld) [#/Vol] 3.54 10*6/uL Low 3.95-5.11 [facility] Comment on above: Performed By: #### D CITLALY, LIP, CMPX, TROPI, BNP, CDP, PT #### [facility] [address] [place] [facility] [employer] Blind: Sami Dominguez MD RBC morphology finding Nom (Bld) NOT REPORTED Normal [facility] Comment on above: Performed By: #### D CITLALY, LIP, CMPX, TROPI, BNP, CDP, PT #### [facility] [address] [place] [address] [employer] Blind: Sami Dominguez MD WBC (Bld) [#/Vol] 7.5 10*3/uL Normal 3.5-11.3 [facility] Comment on above: Performed By: #### D CITLALY, LIP, CMPX, TROPI, BNP, CDP, PT #### [facility] [address] [place], [facility] Esc[employer] Blind: Sami Dominguez MD WBC Morphology NOT REPORTED Normal [facility] Comment on above: Performed By: #### D CITLALY, LIP, CMPX, TROPI, BNP, CDP, PT #### [address] [place], [facility] [employer]: Sami Dominguez MD CTA CHEST ABDOMEN PELVIS [...] Yunier Yang MD 08/02/19 Final result Normal [facility] Moshe, Mhpn Incoming Radiant Results From [place] - 08/02/2019 1:21 PM EDT EXAMINATION: CTA [...] recommended. Reference: J Am Danika Radiol 2013;10:675-681 [place], [place] EXAMINATION: CTA OF THE CHEST, ABDOMEN [...] and caliber without aneurysmal dilatation or dissection. [place] No evidence for aneurysmal dilatation or dissection of the aorta or its branches. Findings most compatible with polycystic kidney disease. Subtle inflammation adjacent to the descending colon is suggestive of subtle colitis. No perforation or abscess formation. No free intraperitoneal air or fluid. 4.1 cm benign appearing ovarian cyst No follow-up imaging is recommended. Reference: J Am Danika Radiol 2013;10:675-681 [place], [place] Comp Metabolic Pr/rfx MGon 1 (cont.) Normal [facility] Comment on above: Result Comment: Aver age GFR for 40-49 years old: 99 mL/min/1.73sq m Chronic Kidney Disease: <60 mL/min/1.73sq m Kidney failure: <15 mL/min/1.73sq m eGFR calculated using average adult body mass. Additional eGFR calculator available at: http://www.Fliqz.Wordseye/multiple_crcl_2012.htm Performed By: #### D CITLALY, LIP, CMPX, TROPI, BNP, CDP, PT #### [facility] [address] [place], [place] [id number] [employer]: Sami Dominguez MD Albumin [Mass/Vol] 4.4 g/dL Normal 3.5-5.2 [facility] Comment on above: Performed By: #### D CITLALY, LIP, CMPX, TROPI, BNP, CDP, PT #### [facility] [address] [place], [place] 8[address]83 [employer]: Sami Dominguez MD Albumin/Globulin [Mass ratio] 1.0 {ratio} Normal 1.0-2.5 [facility] Comment on above: Performed By: #### D CITLALY, LIP, CMPX, TROPI, BNP, CDP, PT #### [facility] [address] [place], [place] [id number] Escort Blind: Sami Dominguez MD Alkaline Phos 98 U/L Normal 35-104 [facility] Comment on above: Performed By: #### D CITLALY, LIP, CMPX, TROPI, BNP, CDP, PT #### [facility] [address] [place], [place] [id number] [employer] Blind: Sami Dominguez MD ALT [Catalytic activity/Vol] 16 U/L Normal 5-33 [facility] Comment on above: Performed By: #### D CITLALY, LIP, CMPX, TROPI, BNP, CDP, PT #### [facility] [address] [place], [place] 8[address]83 [employer]: Sami Dominguez MD Anion gap [Moles/Vol] 18 mmol/L High 9-17 [facility] Comment on above: Performed By: #### D CITLALY, LIP, CMPX, TROPI, BNP, CDP, PT #### [facility] [address] [place] [address] [employer]ort Blind: Sami Dominguez MD AST [Catalytic activity/Vol] 18 U/L Normal <32 [facility] Comment on above: Performed By: #### D CITLALY, LIP, CMPX, TROPI, BNP, CDP, PT #### [facility] [address] [place], [place] [address]40[address]83 [employer]: Sami Dominguez MD Bilirubin Ql (U) 0.31 mg/dL Normal 0.3-1.2 [facility] Comment on above: Performed By: #### D CITLALY, LIP, CMPX, TROPI, BNP, CDP, PT #### [facility] [address] [place], [place] [phone] [employer] Blind: Sami Dominguez MD BUN/CRE Ratio 13 Normal 9-20 [facility] Comment on above: Performed By: #### D CITLALY, LIP, CMPX, TROPI, BNP, CDP, PT #### [facility] [address] [place], [place] [id number] [employer] Blind: Sami Dominguez MD Calcium [Mass/Vol] 9.7 mg/dL Normal 8.6-10.4 [facility] Comment on above: Performed By: #### D CITLALY, LIP, CMPX, TROPI, BNP, CDP, PT #### [facility] [address] [place] [address] Dr[place], [place] [phone] Esc[employer] Blind: Sami Dominguez MD Chloride [Moles/Vol] 95 mmol/L Low 98-107 [facility] Comment on above: Performed By: #### D CITLALY, LIP, CMPX, TROPI, BNP, CDP, PT #### [facility] [address] [place], [place] 0327283 [employer]: Sami Dominguez MD CO2 [Moles/Vol] 18 mmol/L Low 20-31 [facility] Comment on above: Performed By: #### D CITLALY, LIP, CMPX, TROPI, BNP, CDP, PT #### [facility] [address] [place] [address] [employer] Blind: Sami Dominguez MD Creatinine [Mass/Vol] 3.07 mg/dL High 0.50-0.90 [facility] Comment on above: Performed By: #### D CITLALY, LIP, CMPX, TROPI, BNP, CDP, PT #### [facility] [address] [place] [address] [employer] Blind: Sami Dominguez MD GFR, Amer 20 mL/min Low >60 [facility] Comment on above: Performed By: #### D CITLALY, LIP, CMPX, TROPI, BNP, CDP, PT #### [facility] [address] [place], [place] 1557483 [employer] Blind: Sami Dominguez MD GFR,non Amer 17 mL/min Low >60 [facility] Comment on above: Performed By: #### D CITLALY, LIP, CMPX, TROPI, BNP, CDP, PT #### [address] [place], [place] [phone] [employer]: Sami Dominguez MD Glucose [Mass/Vol] 89 mg/dL Normal 70-99 [facility] Comment on above: Performed By: #### D CITLALY, LIP, CMPX, TROPI, BNP, CDP, PT #### [address] [place], [place] [address] [employer] Blind: Sami Dominguez MD Potassium [Moles/Vol] 3.9 mmol/L Normal 3.7-5.3 [facility] Comment on above: Performed By: #### D CITLALY, LIP, CMPX, TROPI, BNP, CDP, PT #### [address] [place], [place] [phone] [employer]: Sami Dominguez MD Protein [Mass/Vol] 8.8 g/dL High 6.4-8.3 [facility] Comment on above: Performed By: #### D CITLALY, LIP, CMPX, TROPI, BNP, CDP, PT #### [address] [place] [address] [employer] Blind: Sami Dominguez MD Sodium [Moles/Vol] 131 mmol/L Low 135-144 [facility] Comment on above: Performed By: #### D CITLALY, LIP, CMPX, TROPI, BNP, CDP, PT #### [facility] [address] [place] [address] [employer] Blind: Sami Dominguez MD Staging: Normal [facility] Comment on above: Result Comment: Stag [...] TROPI, BNP, CDP, PT #### [facility] [address] [place] [address] [employer] Blind: Sami Dominguez MD Urea nitrogen [Mass/Vol] 39 mg/dL High 6-20 [facility] Comment on above: Performed By: #### D CITLALY, LIP, CMPX, TROPI, BNP, CDP, PT #### [facility] [address] [place] [address] [employer]: Sami Dominguez MD Comprehensive Metabolic Pane l w/ Reflex to MGon 08-02-2019 Albumin [Mass/Vol] 4.4 g/dL 3.5 - 5.2 g/dL [place] Albumin/Globulin [Mass ratio] 1.0 {ratio} [place] ALP [Catalytic activity/Vol] 98 U/L 35 - 104 U/L [place] ALT [Catalytic activity/Vol] 16 U/L 5 - 33 U/L [place] Anion gap [Moles/Vol] 18 mmol/L High 9 - 17 mmol/L [place] AST [Catalytic activity/Vol] 18 U/L <32 [place] Bilirubin Ql (U) 0.31 mg/dL 0.3 - 1.2 mg/dL [place] Bun/Cre Ratio 13 [place] Calcium [Mass/Vol] 9.7 mg/dL 8.6 - 10. 4 mg/dL [place] Chloride [Moles/Vol] 95 mmol/L Low 98 - 10 7 mmol/L [place] CO2 [Moles/Vol] 18 mmol/L Low 20 - 31 mmol/L [place] Creatinine [Mass/Vol] 3.07 mg/dL High 0.5 - 0.9 mg/dL [place] GFR 20 mL/min Low >60 [place] GFR Non- 17 mL/min Low >60 [place] Glucose [Mass/Vol] 89 mg/dL 70 - 99 mg/dL [place] Potassium [Moles/Vol] 3.9 mmol/L 3.7 - 5.3 mmol/L [place] Protein [Mass/Vol] 8.8 g/dL High 6.4 - 8.3 g/dL [place] Sodium [Moles/Vol] 131 mmol/L Low 135 - 144 mmol/L [place] Urea nitrogen [Mass/Vol] 39 mg/dL High 6 - 20 mg/dL [place] D-Dimer Teston 08-02-2019 D-Dimer Test 1.15 mg/L FEU High 0.19-0.50 [facility] Comment on above: Result Comment: Elevated [...] TROPI, BNP, CDP, PT #### [facility] [address] [place] [address] [employer]: Sami Dominguez MD D-Dimer, Quantitativeon -2 D-Dimer, Quant 1.15 [place] Comment on above: Elevated levels of [...] and PE (negative predictive value of 98%). Lactate, Sepsison 08-02-2019 Lactic Acid, Sepsis 3.6 mmol/L High 0.5 - 1. 9 mmol/L [place] Lactic Acid, Sepsis 3.6 mmol/L High 0.5-1.9 [facility] Comment on above: Performed By: #### L ACDS #### [facility] [address] [place] [address] [place] [address] Escort Blind: Sami Dominguez MD Lactic Acid, Sepsis, Whole Blood NOT REPORTED 0.5 - 1.9 mmol/L [place] Lactic Acid,Sep Wbld NOT REPORTED Normal 0.5-1.9 [facility] Comment on above: Performed By: #### L ACDS #### [address] [place] [address] Esc[employer] Blind: Sami Dominguez MD Lactic Acidon 08-02-2019 Lactate [Moles/Vol] NOT REPORTED Normal 0.7-2.1 [facility] Comment on above: Performed By: #### D CITLALY, LIP, CMPX, TROPI, BNP, CDP, PT #### [facility] [address] [place] [address] [employer]: Sami Dominguez MD Lactate [Moles/Vol] 1.0 mmol/L Normal 0.5-2.2 [facility] Comment on above: Performed By: #### D CITLALY, LIP, CMPX, TROPI, BNP, CDP, PT #### [facility] [address] [place] [address] [employer]: Sami Dominguez MD Lactic Acid, Plasmaon 2018 Lactate [Moles/Vol] 1 mmol/L 0.5 - 2. 2 mmol/L [place] Lactic Acid, Whole Blood NOT REPORTED 0.7 - 2.1 mmol/L [place] Lipaseon 08-02-2019 Lipase [Catalytic activity/Vol] 38 U/L 13 - 60 U/L [place] Lipase [Catalytic activity/Vol] 38 U/L Normal 13-60 [facility] Comment on above: Performed By: #### D CITLALY, LIP, CMPX, TROPI, BNP, CDP, PT #### [facility] [address] [place] [address] [employer]: Sami Dominguez MD Metabolic Panelon 08-02-2019 GFR/1.73 sq M predicted among non-blacks MDRD (S/P/Bld) [Vol rate/Area] [place] Comment on above: Stage 1: Some [...] body mass. Additional eGFR calculator available at: http://www.Fliqz.Wordseye/multiple_crcl_2012.htm Microscopic Urinalysison Amorphous, UA NOT REPORTED None [place] Bacteria, UA 1+ Abnormal None [place] Casts UA NOT REPORTED /LPF [place] Crystals UA NOT REPORTED None /HPF [place] Epithelial Cells UA 2 TO 5 [place] Mucus, UA NOT REPORTED None [place] Other Observations UA NOT REPORTED NOT REQ. M [place], [place] RBC (U) [#/Vol] None [place] Renal Epithelial, Urine NOT REPORTED 0 /HPF [place] Trichomonas, UA NOT REPORTED None [place] WBC, UA 50 TO 100 [place] Yeast, UA NOT REPORTED [place] Otheron 08-02-2019 Interpretation and review of laboratory results Abnormal [place] Interpretation and review of laboratory results Abnormal [place] PTon 08-02-2019 INR Coag (PPP) [Relative time] 1.0 {INR} Normal 0.9-1.2 [facility] Comment on above: Performed By: #### D CITLALY, LIP, CMPX, TROPI, BNP, CDP, PT #### [facility] [address] [place] [address] Escort Blind: Sami Dominguez MD PT Coag (PPP) [Time] 10.0 s Normal 9.7-12.2 [facility] Comment on above: Performed By: #### D CITLALY, LIP, CMPX, TROPI, BNP, CDP, PT #### [facility] [address] [place] [address] Escort Blind: Sami Dominguez MD [employer]-INRon 08-02-2019 INR Coag (PPP) [Relative time] 1.0 {INR} [place], [place] PT Coag (PPP) [Time] 10 s [place] Troponinon 08-02-2019 Troponin I.cardiac [Mass/Vol] [place], [place] Comment on above: Reference Range: <0.03 Within reference range. 0.03-0.09 Possible myocardial damage. Repeat at appropriate intervals to rule out chronic elevation. >= 0.10 Indicative of myocardial damage. Patients with high levels of Biotin oral intake (i.e >5mg/day) may have falsely decreased Troponin T levels. Samples collected within 8 hours of biotin intake may require additional information for diagnosis. Troponin I.cardiac [Mass/Vol] NOT REPORTED Normal 0-14 [facility] Comment on above: Performed By: #### D CITLALY, LIP, CMPX, TROPI, BNP, CDP, PT #### [facility] [address] [place] [address] Escort Blind: Sami Dominguez MD Troponin I.cardiac [Mass/Vol] ng/mL Normal <0.03 [facility] Comment on above: Result Comment: Trop onin T results cannot be compared to Troponin-I results. Performed By: #### D CITLALY, LIP, CMPX, TROPI, BNP, CDP, PT #### [facility] [address] [place], [place] [id number] Escort Blind: Sami Dominguez MD Troponin I.cardiac [Mass/Vol] Normal [facility] Comment on above: Result Comment: Refe [...] TROPI, BNP, CDP, PT #### [facility] [address] [place] [address] Escort Blind: Sami Dominguez MD Troponin I.cardiac [Mass/Vol] [place] Comment on above: Reference Range: <0.03 Within reference range. 0.03-0.09 Possible myocardial damage. Repeat at appropriate intervals to rule out chronic elevation. >= 0.10 Indicative of myocardial damage. Patients with high levels of Biotin oral intake (i.e >5mg/day) may have falsely decreased Troponin T levels. Samples collected within 8 hours of biotin intake may require additional information for diagnosis. Troponin I.cardiac [Mass/Vol] NOT REPORTED Normal 0-14 [facility] Comment on above: Performed By: #### D CITLALY, LIP, CMPX, TROPI, BNP, CDP, PT #### [facility] [address] [place] [address] Escort Blind: Sami Dominguez MD Troponin I.cardiac [Mass/Vol] ng/mL Normal <0.03 [facility] Comment on above: Result Comment: Trop onin T results cannot be compared to Troponin-I results. Performed By: #### D CITLALY, LIP, CMPX, TROPI, BNP, CDP, PT #### [facility] [address] [place] [address] Escort Blind: Sami Dominguez MD Troponin I.cardiac [Mass/Vol] Normal [facility] Comment on above: Result Comment: Refe [...] TROPI, BNP, CDP, PT #### [facility] [address] [place] [address] Escort Blind: Sami Dominguez MD Troponin T.cardiac [Mass/Vol] ug/L <0.03 ng/mL [place] Comment on above: Troponin T results c annot be compared to Troponin-I results. Troponin T.cardiac [Mass/Vol] ug/L <0.03 ng/mL [place] Comment on above: Troponin T results c annot be compared to Troponin-I results. Troponin, High Sensitivity NOT REPORTED 0 - 14 ng/L [place] Troponin, High Sensitivity NOT REPORTED 0 - 14 ng/L [place] UA w/Reflex Cultureon 2018 Acetoacetic Acid,Ur Negative Normal NEG [facility] Comment on above: Performed By: #### D CITLALY, LIP, CMPX, TROPI, BNP, CDP, PT #### [facility] [address] [place] [address] Escort Blind: Sami Dominguez MD Bilirubin, SemiQt,Ur Negative Normal NEG [facility] Comment on above: Performed By: #### D CITLALY, LIP, CMPX, TROPI, BNP, CDP, PT #### [facility] [address] [place], [place] [id number] Escort Blind: Sami Dominguez MD Color (U) YELLOW Normal YEL [facility] Comment on above: Performed By: #### D CITLALY, LIP, CMPX, TROPI, BNP, CDP, PT #### [facility] [address] [place], [place] [id number] Escort Blind: Sami Dominguez MD Comment NOT REPORTED [facility] Comment on above: Performed By: #### D CITLALY, LIP, CMPX, TROPI, BNP, CDP, PT #### [address] [place], [place] [id number] Escort Blind: Sami Dominguez MD Glucose Ql (U) Negative Normal [facility] Comment on above: Performed By: #### D CITLALY, LIP, CMPX, TROPI, BNP, CDP, PT #### [address] [place], [place] [id number] Escort Blind: Sami Dominguez MD Hemoglobin, Ur 1+ Abnormal [facility] Comment on above: Performed By: #### D ICTLALY, LIP, CMPX, TROPI, BNP, CDP, PT #### [address] [place], [facility] Escort Blind: Sami Dominguez MD Leukocyte esterase Test strip Ql (U) MODERATE Abnormal NEG [facility] Comment on above: Performed By: #### D CITLALY, LIP, CMPX, TROPI, BNP, CDP, PT #### [facility] [address] [place], [place] [id number] Escort Blind: Sami Dominguez MD Nitrite,Ur Negative Normal [facility] Comment on above: Performed By: #### D CITLALY, LIP, CMPX, TROPI, BNP, CDP, PT #### [facility] [address] [place] [address] Escort Blind: Sami Dominguez MD pH (U) 6.0 [pH] Normal 5.0-9.0 [facility] Comment on above: Performed By: #### D CITLALY, LIP, CMPX, TROPI, BNP, CDP, PT #### [facility] [address] [place] [address] Escort Blind: Sami Dominguez MD Protein Ql (U) TRACE Abnormal NEG [facility] Comment on above: Performed By: #### D CITLALY, LIP, CMPX, TROPI, BNP, CDP, PT #### [facility] [address] [place] [address] Escort Blind: Sami Dominguez MD Specific gravity (U) [Rel density] 1.010 Normal 1.010-1.020 [facility] Comment on above: Performed By: #### D CITLALY, LIP, CMPX, TROPI, BNP, CDP, PT #### [address] [place] [address] Escort Blind: Sami Dominguez MD Turbidity CLEAR Normal CLEAR [facility] Comment on above: Performed By: #### D CITLALY, LIP, CMPX, TROPI, BNP, CDP, PT #### [address] [place] [address] Escort Blind: Sami Dominguez MD Urobilinogen,Ur Normal Normal NORM [facility] Comment on above: Performed By: #### D CITLALY, LIP, CMPX, TROPI, BNP, CDP, PT #### [facility] [address] [place] [address] Escort Blind: Sami Dominguez MD Urinalysis Reflex to Culture on 08-02-2019 Bilirubin Urine Negative NEGATIVE [facility], [place] Color, UA YELLOW YELLOW [facility], [place] Glucose, Ur Negative NEGATIVE [place] Ketones Ql (U) Negative NEGATIVE [place] Leukocyte esterase Test strip Ql (U) MODERATE Abnormal NEGATIVE [place] Nitrite, Urine Negative NEGATIVE [place] pH, UA 6.0 [place] Protein (U) [Mass/Vol] TRACE Abnormal NEGATIVE Me [place], [place] Specific [place], UA 1.010 [place], [place] Turbidity UA CLEAR CLEAR [place] Urinalysis Comments NOT REPORTED [place] Urine Hgb 1+ Abnormal NEGATIVE [place] Urobilinogen, Urine Normal Normal [place] Urinalysis,Microon 9 ----- Normal [facility] Comment on above: Performed By: #### D CITLALY, LIP, CMPX, TROPI, BNP, CDP, PT #### [address] [place] [address] Escort Blind: Sami Dominguez MD Amorphous sediment LM Ql (Urine sed) NOT REPORTED Normal [facility] Comment on above: Performed By: #### D CITLALY, LIP, CMPX, TROPI, BNP, CDP, PT #### [address] [place] [address] Escort Blind: Sami Dominguez MD Bacteria LM.HPF (Urine sed) [#/Area] 1+ Abnormal [facility] Comment on above: Performed By: #### D CITLALY, LIP, CMPX, TROPI, BNP, CDP, PT #### [address] [place] [address] Escort Blind: Sami Dominguez MD Casts LM.LPF (Urine sed) [#/Area] NOT REPORTED Normal [facility] Comment on above: Performed By: #### D CITLALY, LIP, CMPX, TROPI, BNP, CDP, PT #### [address] [place] [address] Escort Blind: Sami Dominguez MD Crystals LM Nom (Urine sed) NOT REPORTED Normal NONE [facility] Comment on above: Performed By: #### D CITLALY, LIP, CMPX, TROPI, BNP, CDP, PT #### [facility] [address] [place] [address] Escort Blind: Sami Dominguez MD Epithelial cells LM.HPF (Urine sed) [#/Area] 2 TO 5 Normal 0-25 [facility] Comment on above: Performed By: #### D CITLALY, LIP, CMPX, TROPI, BNP, CDP, PT #### [facility] [address] [place], [place] [id number] Escort Blind: Sami Dominguez MD Epithelial, Renal NOT REPORTED Normal 0 [facility] Comment on above: Performed By: #### D CITLALY, LIP, CMPX, TROPI, BNP, CDP, PT #### [address] [place] [address] Escort Blind: Sami Dominguez MD Mucus Strands NOT REPORTED Normal [facility] Comment on above: Performed By: #### D CITLALY, LIP, CMPX, TROPI, BNP, CDP, PT #### [address] [place] [address] Escort Blind: Sami Dominguez MD Other Observations NOT REPORTED Normal NREQ [facility] Comment on above: Performed By: #### D CITLALY, LIP, CMPX, TROPI, BNP, CDP, PT #### [facility] [address] [place] [address] [place] [address] Escort Blind: Sami Dominguez MD RBC (U) [#/Vol] None Normal 0-2 [facility] Comment on above: Performed By: #### D CITLALY, LIP, CMPX, TROPI, BNP, CDP, PT #### [facility] [address] [place], [place] [phone] Escort Blind: Sami Dominguez MD Trichomonas NOT REPORTED Normal [facility] Comment on above: Performed By: #### D CITLALY, LIP, CMPX, TROPI, BNP, CDP, PT #### [facility] [address] [place], [place] [id number] Escort Blind: Sami Dominguez MD WBC (U) [#/Vol] 50 TO 100 Normal 0-5 [facility] Comment on above: Performed By: #### D CITLALY, LIP, CMPX, TROPI, BNP, CDP, PT #### [facility] [address] [place] [id number] Escort Blind: Sami Dominguez MD Yeast LM Ql (Urine sed) NOT REPORTED Normal NONE [facility] Comment on above: Performed By: #### D CITLALY, LIP, CMPX, TROPI, BNP, CDP, PT #### [facility] [address] [place] [phone] Escort Blind: Sami Dominguez MD XR CHEST PORTABLEon 08-02-20 [...] IMPRESSION: No acute cardiopulmonary process. Interpreted by: Culeln Ngo MD Signed by: Cullen Ngo MD 08/02/19 Final result Normal [facility] EXAMINATION: ONE XRA Y VIEW OF THE CHEST 08/02/2019 12:59 pm COMPARISON: None. HISTORY: ORDERING SYSTEM PROVIDED HISTORY: CP TECHNOLOGIST PROVIDED HISTORY: CP FINDINGS: Heart size and pulmonary vessels are within normal limits. Lungs are clear. No focal infiltrates or significant pleural effusions are seen. There is no acute osseous abnormality. Monitor leads overlie the chest. [facility], [place] No acute cardiopulmo nary process. [facility], [place] Moshe, [facility] Incoming Radiant Results From [facility] - 08/02/2019 1:10 PM EDT EXAMINATION: ONE [...] the chest. IMPRESSION: No acute cardiopulmonary process. [employer] Social History Date Type Detail Facility Start: 06-05-2022 End: 06-20-2022 Tobacco smoking status NHIS Never smoked tobacco (finding) [facility] Start: 1975 Sex Assigned At Female F [facility] Tobacco smoking status NHIS Unknown if ever smoked [employer] Sex Assigned At Not on file [facility] Sex Assigned At Sex Assigned At [facility] [employer] Other Vital Signs Date Time Vital Sign Value Performing Clinician Facility 03-15-2024 17:34-0400 Body height 157.48 cm MAITRE D' Andreia Jerry Work Phone: [facility] 03-15-2024 17:34-0400 Body mass index (BMI) [Ratio] 31.8 kg/m2 MAITRE D' Andreia Jerry Work Phone: [facility] 03-15-2024 17:34-0400 Body temperature 100.3 [degF] MAITRE D' Andreia Jerry Work Phone: [facility] 03-15-2024 17:34-0400 Body weight 78.92 kg MAITRE D' Andreia Jerry Work Phone: [facility] 03-15-2024 17:34-0400 Diastolic blood pressure 79 mm[Hg] MAITRE D' Andreia Jerry Work Phone: [facility] 03-15-2024 17:34-0400 Heart rate 88 /min MAITRE D' Andreia Jerry Work Phone: [facility] 03-15-2024 17:34-0400 Respiratory rate 18 /min MAITRE D' Andreia Jerry Work Phone: [facility] 03-15-2024 17:34-0400 SaO2% (BldA) [Mass fraction] 96 % MAITRE D' Andreia Jerry Work Phone: [facility] 03-15-2024 17:34-0400 Systolic blood pressure 121 mm[Hg] MAITRE D' Andreia Jerry Work Phone: [facility] 07-30-2022 17:40-0400 Body height 157.48 cm Yaneth Toni Other [employer] Other 07-30-2022 17:40-0400 Body mass index (BMI) [Ratio] 36.69 kg/m2 Yaneth Toni Other [employer] Other 07-30-2022 17:40-0400 Body temperature 97.4 [degF] Yaneth Toni Other [employer] Other 07-30-2022 17:40-0400 Body weight 90.99 kg Yaneth Toni Other [employer] Other 07-30-2022 17:40-0400 Diastolic blood pressure 85 mm[Hg] Yaneth Toni Other [employer] Other 07-30-2022 17:40-0400 Respiratory rate 18 /min Yaneth Toni Other [employer] Other 07-30-2022 17:40-0400 SaO2% (BldA) [Mass fraction] 99 % Yaneth Toni Other [employer] Other 07-30-2022 17:40-0400 Systolic blood pressure 124 mm[Hg] Yaneth Toni Other [employer] Other 07-03-2022 09:45-0400 Body height 157.48 cm Estefania Vo Other [employer] Other 07-03-2022 09:45-0400 Body mass index (BMI) [Ratio] 36.76 kg/m2 Estefania Vo Other [employer] Other 07-03-2022 09:45-0400 Body temperature 97 [degF] Estefania Vo Other [employer] Other 07-03-2022 09:45-0400 Body weight 91.17 kg Estefania Vo Other [employer] Other 07-03-2022 09:45-0400 Diastolic blood pressure 60 mm[Hg] Estefania Vo Other [employer] Other 07-03-2022 09:45-0400 SaO2% (BldA) [Mass fraction] 99 % sEtefania Vo Other [employer] Other 07-03-2022 09:45-0400 Systolic blood pressure 110 mm[Hg] Estefania Vo Other [employer] Other 06-20-2022 16:10-0400 Diastolic blood pressure 68 mm[Hg] DO Ming Alexis Work Phone: [facility] 06-20-2022 16:10-0400 Heart rate 69 /min DO Ming Alexis Work Phone: [facility] 06-20-2022 16:10-0400 Respiratory rate 18 /min DO Ming Alexis Work Phone: [facility] 06-20-2022 16:10-0400 SaO2% (BldA) [Mass fraction] 100 % DO Ming Espinoza Work Phone: [facility] 06-20-2022 16:10-0400 Systolic blood pressure 126 mm[Hg] DO Ming Espinoza Work Phone: [facility] 06-20-2022 13:15-0400 Body height 157.48 cm DO Ming Espinoza Work Phone: [facility] 06-20-2022 13:15-0400 Body temperature 98.6 [degF] DO Ming Espinoza Work Phone: [facility] 06-20-2022 13:15-0400 Body weight 91.5 kg DO Ming Espinoza Work Phone: [facility] 06-18-2022 10:45-0400 Diastolic blood pressure 79 mm[Hg] DO Ming Espinoza Work Phone: [facility] 06-18-2022 10:45-0400 Heart rate 66 /min DO Ming Espinoza Work Phone: [facility] 06-18-2022 10:45-0400 Respiratory rate 16 /min DO Ming Espinoza Work Phone: [facility] 06-18-2022 10:45-0400 SaO2% (BldA) [Mass fraction] 100 % DO Ming Espinoza Work Phone: [facility] 06-18-2022 10:45-0400 Systolic blood pressure 130 mm[Hg] DO Ming Espinoza Work Phone: [facility] 06-18-2022 08:08-0400 Body mass index (BMI) [Ratio] 37.8 kg/m2 DO Ming Espinoza Work Phone: [facility] 06-18-2022 07:41-0400 Body height 157.48 cm DO Ming Espinoza Work Phone: [facility] 06-18-2022 07:41-0400 Body weight 93.89 kg DO Ming Espinoza Work Phone: [facility] 06-18-2022 06:26-0400 Body temperature 98.5 [degF] DO Ming Espinoza Work Phone: [facility] 05-30-2022 11:00-0400 Body height 157.48 cm Jesus Parham Other [employer] Other 05-30-2022 11:00-0400 Body mass index (BMI) [Ratio] 36.76 kg/m2 Jesus Parham Other [employer] Other 05-30-2022 11:00-0400 Body temperature 97.6 [degF] Jesus Parahm Other [employer] Other 05-30-2022 11:00-0400 Body weight 91.17 kg Jesus Parham Other [employer] Other 05-30-2022 11:00-0400 Diastolic blood pressure 76 mm[Hg] Jesus Parham Other [employer] Other 05-30-2022 11:00-0400 SaO2% (BldA) [Mass fraction] 98 % Jesus Parham Other [employer] Other 05-30-2022 11:00-0400 Systolic blood pressure 128 mm[Hg] Jesus Parham Other [employer] Other 05-02-2022 14:40-0400 Body height 157.48 cm Yaneth Muñoz Other [employer] Other 05-02-2022 14:40-0400 Body mass index (BMI) [Ratio] 36.76 kg/m2 Yaneth Toni Other [employer] Other 05-02-2022 14:40-0400 Body temperature 97.7 [degF] Yaneth Toni Other [employer] Other 05-02-2022 14:40-0400 Body weight 91.17 kg Yaneth Toni Other [employer] Other 05-02-2022 14:40-0400 Diastolic blood pressure 88 mm[Hg] Yaneth Toni Other [employer] Other 05-02-2022 14:40-0400 Respiratory rate 18 /min Yaneth Toni Other [employer] Other 05-02-2022 14:40-0400 SaO2% (BldA) [Mass fraction] 98 % Yaneth Toni Other [employer] Other 05-02-2022 14:40-0400 Systolic blood pressure 121 mm[Hg] Yaneth Toni Other [employer] Other 04-30-2022 10:10-0400 Body height 157.48 cm Dipika Shantell Other [employer] Other 04-30-2022 10:10-0400 Body mass index (BMI) [Ratio] 37.86 kg/m2 Dipika Shantell Other [employer] Other 04-30-2022 10:10-0400 Body temperature 97.4 [degF] Dipika Stinson Other [employer] Other 04-30-2022 10:10-0400 Body weight 93.9 kg Dipika Stinson Other [employer] Other 04-30-2022 10:10-0400 Diastolic blood pressure 80 mm[Hg] Dipika Stinson Other [employer] Other 04-30-2022 10:10-0400 Respiratory rate 16 /min Dipika Stinson Other [employer] Other 04-30-2022 10:10-0400 SaO2% (BldA) [Mass fraction] 100 % Dipika Stinson Other [employer] Other 04-30-2022 10:10-0400 Systolic blood pressure 117 mm[Hg] Dipika Stinson Other [employer] Other 04-01-2022 09:13-0400 Diastolic blood pressure 62 mm[Hg] DO Ming Alexis Work Phone: [facility] 04-01-2022 09:13-0400 Heart rate 83 /min DO Ming Alexis Work Phone: [facility] 04-01-2022 09:13-0400 Respiratory rate 16 /min DO Ming Alexis Work Phone: [facility] 04-01-2022 09:13-0400 SaO2% (BldA) [Mass fraction] 97 % DO Ming Alexis Work Phone: [facility] 04-01-2022 09:13-0400 Systolic blood pressure 101 mm[Hg] DO Ming Alexis Work Phone: [facility] 04-01-2022 07:23-0400 Body height 157.48 cm DO Ming Espinoza Work Phone: [facility] 04-01-2022 07:23-0400 Body mass index (BMI) [Ratio] 37.8 kg/m2 DO Ming Espinoza Work Phone: [facility] 04-01-2022 07:23-0400 Body temperature 97.8 [degF] DO Ming Espinoza Work Phone: [facility] 04-01-2022 07:23-0400 Body weight 93.89 kg DO Ming Espinoza Work Phone: [facility] 12-06-2021 16:20-0500 Body height 157.48 cm Yaneth Toni Other [employer] Other 12-06-2021 16:20-0500 Body mass index (BMI) [Ratio] 37.86 kg/m2 Yaneth Toni Other [employer] Other 12-06-2021 16:20-0500 Body weight 93.9 kg Yaneth Toni Other [employer] Other 12-06-2021 16:20-0500 Diastolic blood pressure 89 mm[Hg] Yaneth Toni Other [employer] Other 12-06-2021 16:20-0500 Respiratory rate 18 /min Yaneth Toni Other [employer] Other 12-06-2021 16:20-0500 SaO2% (BldA) [Mass fraction] 97 % Yaneth Toni Other [employer] Other 12-06-2021 16:20-0500 Systolic blood pressure 134 mm[Hg] Yaneth Toni Other [facility] [employer] Other 08-02-2019 16:35-0400 Body Temperature 99.3 [degF] Vidal Peguero [facility] 08-02-2019 16:27-0400 Pulse (Heart Rate) 110 /min Vidal Madrigal [facility], [place] 08-02-2019 16:27-0400 Pulse Oximetry 98 % [facility] [place] 08-02-2019 16:27-0400 Respiratory Rate 14 /min [facility] [place] 08-02-2019 16:16-0400 BP Diastolic 56 mm[Hg] [facility] [place] 08-02-2019 16:16-0400 BP Systolic 97 mm[Hg] [facility] [place] 08-02-2019 14:59-0400 BMI (Body Mass Index) 37.79 kg/m2 [facility] [place] 08-02-2019 14:59-0400 Body weight 90.72 kg [facility] [place] 08-02-2019 14:59-0400 Height 154.9 cm [place]idal [place] Clinical Notes 05-17-2020 to 03-25-2024 Note Date & Type Note Facility 03-25-2024 Note Patient called, stat es PCP stopped Bactrim and started Keflex for E-coli in urine. On 500 mg tid x 7 days. Advised to hydrate well and get labs, repeat urine culture once completed. Voiced understanding. [facility] 03-16-2024 Note Patient called benigno borrero she is currently being treated for a UTI with bactrim BID for 7 days. [facility] 02-25-2024 Note Received a call from the patient regarding the non-compliant lab letter. Explained to the patient that we had gotten some labs on her but not a CMP or BMP. Patient stated that she has always gotten her labs drawn at [facility]. She will be getting labs drawn tomorrow and she will make sure that the draw the correct labs and have the results sent to us. [facility] 12-23-2023 Note 12/23/23 Chief Complaint Patient presents with Kidney Follow-up Pt has questions about her lab work. PCP: Ming Espinoza MD Txp Referring: Yaneth Muñoz [facility]acy: [facility] - [place], [place] - [address] [place] [address] [place] [address] [place] [address] [id number] - [place], [place] [address] [address] [facility] [place] [address] [facility] [address] [facility] [address] Subjective Visit Vitals BP 116/73 (BP Location: [...] Review Audit Reviewed by Trupti Sanchez MA (Nutritional Chemist) on 12/23/23 at 1430 Medication Order Taking? Sig Documenting Provider Last Dose Status amLODIPine (Norvasc) 10 mg tablet [id number] Take 1 tablet (10 mg) by mouth in the morning. Aguila Parrish MD 10/24/23 235 bumetanide (Bumex) 2 mg tablet [id number] Take 1 tablet (2 mg) by mouth in the morning. Patient not taking: Reported on 11/08/2022 Aguila Parrish MD 10/25/22 2359 docusate sodium (Colace) 100 mg capsule [id number] Take 1 capsule (100 mg) by mouth in the morning and at bedtime. Patient not taking: Reported on 09/01/2023 Paty Ansari NP Active DULoxetine (Cymbalta) [address] capsule [id number] Yes Take 1 capsule every day by oral route. Historical ProviderMD Taking Active Envarsus XR 1 mg tablet ER [id number] Yes TAKE 3 TABLETS BY MOUTH ONCE DAILY IN THE MORNING. TAKE ALONG WITH 0.75 MG TABLETS DIRECTED FOR TOTAL DOSE UP TO 4.5 MG PER DAY. Patient taking differently: Take 2 mg by mouth in the morning. Aguila Parrish MD Taking Active famotidine (Pepcid) 20 mg tablet [id number] Yes Take 1 tablet (20 mg) by mouth in the morning. Patient taking differently: Take 20 mg by mouth if needed. Aguila Parrish MD Taking Active febuxostat (Uloric) 40 mg tablet [id number] Take 0.5 tablets every day by oral route. Historical ProviderMD Active ferrous sulfate 325 (65 Fe) MG tablet [id number] No Take 65 mg by mouth every other day. Historical ProviderMD Not Taking Active fish oil (Keyes-3) 60-90-500 mg capsule [id number] No Take 2 capsules (1,000 mg) by mouth in the morning and at bedtime. Patient not taking: Reported on 12/23/2023 Sujit Bernal MD Not Taking Active Levemir FlexPen 100 unit/mL (3 mL) pen [id number] No INJECT 12 UNITS SUBCUTANEOUS IN AM 30 DAYS Historical ProviderMD Not Taking Flag for Review magnesium oxide (Mag-Ox) 400 mg (241.3 mg magnesium) tablet [id number] Yes TAKE 2 TABLETS BY MOUTH IN THE MORNING AND 2 TABLETS AT BEDTIME Nelson Davies MD Taking Active mycophenolate (Myfortic) 180 mg EC tablet [id number] Yes Take 4 tablets (720 mg) by mouth in the morning and at bedtime. Aguila Parrish MD Taking Active oxyCODONE-acetaminophen (Percocet) 5-325 mg tablet [id number] Take 1 tablet by mouth every 6 (six) hours if needed for severe pain (8-10 pain score) for up to 20 doses. Patient not taking: Reported on 09/01/2023 Paty Ansari NP Active potassium chloride CR (Klor-Con M20) 20 mEq ER tablet [id number] Yes Take 1 tablet (20 mEq) by mouth in the morning. Do not crush or chew. Andrea Elizondo MD Taking Active pravastatin (Pravachol) 40 mg tablet [id number] Yes Take 1 tablet (40 mg) by mouth at bedtime. Patient taking differently: Take 40 mg by mouth at bedtime. 40 mg 4 times a week. Fri Sat Kevin Raymond MD Taking Active Immunization History Administered Date(s) Administered Mashery Sars-Cov-2 Vaccination 10/13/2021 Patient Active Problem List Diagnosis Anxiety COVID-19 Depressive disorder Gastroesophageal reflux disease Gout Primary hypertension Multiple congenital cysts of kidney Stage 4 chronic kidney disease ([facility]) Encounter for aftercare following kidney transplant Immunosuppressed status ([facility]) Hyperuricemia Metabolic acidosis Bilateral lower [...] Smokeless tobacco: Neve (more content not included)... [facility] 10-02-2023 Note Per phone order Tyler sorto MD, increase Kdur from 10meq every day to 20meq every day due to K 3.2 on 09/26/23. Pt informed and verbalized understanding. Amiloride removed from her MAR as she reported in July she is not taking and reconfirmed today. [facility] 09-01-2023 Note ---- Attestation signed by Sujit [...] making adequate urine output with no proteinuria. [place] kidneys with adult polycystic kidney disease BK [...] for dysphoric moo (more content not included)... [facility] 11-01-2023 Note For K-level of 3.4, left VM to start Kdur [address] Dolores anderson. [facility] 07-24-2023 Note PT reports not lindsay ating the Amiloride with daily watery diarrhea (no longer formed) x 1 since starting medication with nausea and indigestion/acid reflux aggravated at times even with water. Pt will complete FU CMP and hold this medication pending review with [place] transplant provider. Advised her DSA collection is due as well and she verbalized understanding. Denies fever, chills or being around persons known to be ill. [facility] 07-24-2023 Note Per Shelly x 7686 BM P specimen not available. Notified Dolores FIERRO by phone and per his phone order, will repeat this labs in 7-10 days and pt was notified by phone and she verbalized understanding. Pt needs copy of her standing lab order. Will prepare for her pickup. [facility] 07-24-2023 Note Per phone order Minerva morel MD, discontinue amiloride due to side effects and recheck her CMP in 2 weeks as serum K may drop. This coordinator spoke with Ramila victor in lab to complete CMP today. DSA reentered for next lab draw. Pt notified by phone and verbalized understanding. [facility] 07-17-2023 Note Reviewed todays labs in person with Guillermo FIERRO and per his verbal order, pt should stop the oral potassium daily dosing and resume the Amiloride 5mg every day dosing with FU labs in one week to check for elevation in potassium. Pt verbalized understanding by phone and her RV will be rescheduled before the end of the year with [place] transplant by clinic [facility]. Per Doolres FIERRO, the pt may discontinue her Prednisone 5mg every other day dosing and she acknowledged. Tac pending. [facility] 07-16-2023 Note Pt reports stopping Amiloride 5mg every day and starting Potassium 20meq every day & Ozempic 1mg subcutaneous weekly per PCP with improved glucose control. Monitors BP and no concerns. She will present to lab tomorrow for testing. Pt agrees and verbalized understanding. Pt to located her standing lab order for use @ [facility] prn. [facility] 07-16-2023 Note Reviewed by phone wi th Dolores MD pt input about her medication changes by PCP including stopping Amiloride. agreed to reschedule her 07/18 RV and review labs tomorrow by phone. Clinic [place] team informed to reschedule pt. [facility] 07-10-2023 Note Returned 0816 voicem ail to pt asking about dental work antibiotic prophylaxis. Confirmed with pt no allergies to antibiotics and advised to take Amoxicillin 2 grams PO 30-60 minutes prior to dental work or cleanings and she verbalized understanding. PT will contact her dentist for RX she stated. [facility] 06-17-2023 Note Returned patients ca ll regarding local pharmacy informing her of a DDI Recommended to patient to take Crestor in the evening and Magnesium during the day (or at least 2 hours apart) to avoid decreased absorption due to DDI iLam Viveros PharmD Candidate 2023 [facility] 06-15-2023 Note 06/15/23 1100 Pt called and said was out of myfortic, mail order did not arrive. Pt takes myfortic 720 twice a day. Pt chart reviewed and dose confirmed. Prescription called in to [facility] pharmacy. 5 days supply, 40 tablets. Myfortic 180 tablets, take 720 mg - 4 tablets, twice a day. [facility] Pt verbalized understanding. [facility] 04-30-2023 Note Reviewed Tac Lvl 9.3 in [...] she is currently taking Envarsus 2 mg. [facility] 04-16-2023 Note Seen by Dolores FIERRO in clinic today, he states he gave the pt verbal instruction to reduce her Prednisone to 5mg every other day. [facility] 04-16-2023 Note Nephrology Transplan t Clinic Patient [...] back: Neck sup (more content not included)... [facility] 04-11-2023 Note Reviewed Mag K & cre atinine with Guillermo FIERRO and to start Amiloride 5mg every day due to low mag level 1.6. Pt notified and she verbalizes understanding. RV 04/16 [facility] 04-11-2023 Note Pt wishes to discuss Ozempic [...] 6 months post transplant and she agrees. [facility] 07-30-2022 Evaluation note Encounter Date Diagnosis Assessment [...] She has gout and follows with a cutting machine tender. She takes Urolic and denies any recent gout flare Jul, Metabolic acidemia, unspecified (ICD-10 - P19.9) She has metabolic acidosis due to the advanced CKD. Continue oral Sodium Bicarbonate [facility] 09-28-2022 Evaluation note* Encounter Date Diagnosis [...] disease, unspecified CKD stage (ICD-10 - N18.9) [facility] Encounter Date Diagnosis Assessment Notes Treatment Notes Treatment Clinical Notes May, Pre-op testing (ICD-10 - Z01.818) [facility] 08-25-2022 Evaluation note* Encounter Date Diagnosis [...] will schedule this in the near future. [facility] 07-28-2022 Evaluation note* Encounter Date Diagnosis [...] explained to her the potential need of NURSE CLINICIAN in future. I discussed with her different options of NURSE CLINICIAN including PD, HTN renal transplant. I provide [...] stephens s gout and follows with a cutting machine tender. She takes Urolic and denies any recent gout flare [facility] 07-26-2022 Evaluation note* Encounter Date Diagnosis [...] care provider if no improvement of symptoms. [facility] 05-24-2022 Evaluation note* Encounter Date Diagnosis Assessment Notes Treatment Notes Treatment Clinical Notes February, Screening for colon cancer (ICD-10 - Z12.11) [facility] 03-03-2022 Evaluation note* Encounter Date Diagnosis [...] explained to her the potential need of NURSE CLINICIAN in future. I discussed with her different options of NURSE CLINICIAN including PD, HTN renal transplant. I provide [...] She has gout and follows with a cutting machine tender. She takes Urolic and denies any recent gout flare [facility] 06-25-2021 NotePatient Outreach (NEPHMN) MANDEEP PURI ([id number]) 1975 F Date Time Provider Department 03/30/21 PERRI BARRETT During your visit today, we recorded the following information about you: Allergies As of Date: 03/30/2021 Noted Allergy Reaction ALLOPURINOL 08/02/2019 4 - Hives Date Reviewed: 03/30/2021 Reviewed by: Perri Barrett MD - Fully Assessed Visit Diagnosis:Screening for genitourinary condition [Z13.89] Order(s):URINALYSIS, DIPSTICK ONLY [SQUA] Order #: [id number]. #:[id number] Prescriptions as of 03/30/2021 Sig: DULOXETINE 60 [...] dominant polycystic kidney dis*03/30/2021 Encounter Status:Closed by [facility]al[facility] on 04/02/21[facility] 03-30-2021 NoteHNO ID: [id number] Author: Perri Barrett MD Service: ? Author Type: Physician Type: Progress Notes Filed: 03/30/2021 10:25 AM Note Text: Mrs. 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 [facility] History general Narrative - Reported * Type Description Date Medical History HTN (hypertension) Medical History Anxiety Medical History polycystic kidneys Medical History COVID 05-17-2020 Surgical History C section Surgical History BREAST REDUCTION Hospitalization History child Hospitalization History KIDNEY INFECTION 07/2019 Hospitalization History COVID AND DEHYDRATION [facility] 08-12-2020 History general Narrative - Reported* Type Description Date Medical History HTN (hypertension) Medical History Anxiety Medical History polycystic kidneys Medical History COVID 05-17-2020 Medical History end stage renal disease Surgical History C section Surgical History BREAST REDUCTION Surgical History colonoscopy 04/01/2022 Surgical History wisdom teeth 03/24/2022 Hospitalization History child Hospitalization History KIDNEY INFECTION 07/2019 Hospitalization History COVID AND DEHYDRATION [facility] 08-12-2020 History general Narrative - Reported* [...] INFECTION 07/2019 Hospitalization History COVID AND DEHYDRATION [facility] Other 08-12-2020 History general Narrative - Reported* [...] INFECTION 07/2019 Hospitalization History COVID AND DEHYDRATION [facility] Other Evaluation noteNo assessment information available [facility] Work Phone: Evaluation noteNo InformationNort [employer] Other Evaluation note* Diagnosis Onset Date Resolution Status Dysuria acute UTI (urinary tract infection) acute [facility] Work Phone: Assessments Diagnosis Acute sepsis (HCC)- Primary Acute cystitis without hematuria Acute cystitis Chronic renal failure, stage 4 (severe) (HCC) Polycystic kidney disease Polycystic kidney, unspecified type Advance Directives No Advanced Directives Records FoundDocuments on File Type Date Recorded 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 DATE CREATED AUTHOR AUTHOR'S ORGANIZ ATION 11/07/2021 [facility] DATE CREATED AUTHOR AUTHOR'S ORGANIZ ATION 02/27/2022 [facility] DATE CREATED AUTHOR AUTHOR'S ORGANIZ ATION 08/04/2022 [facility] DATE CREATED AUTHOR AUTHOR'S ORGANIZ ATION 03/22/2024 [facility] DATE CREATED AUTHOR AUTHOR'S ORGANIZ ATION 03/24/[address] [facility] Special[facility] EPIC DATE CREATED AUTHOR AUTHOR'S ORGANIZ ATION 03/27/2024 [facility] Care Teams (unrecognized sec tion and [...] BE BASED ON THE PRIMARY CLINICAL RECORDS. [facility]. provides no warranty or guarantee of the accuracy or completeness of information in this document.
[2024-04-02 08:12] LABS: Alanine Aminotransferase 32 U/L (14-59); Albumin Globulin Ratio 0.8; Albumin Level 3.8 g/dL (3.4-5.0); Alkaline Phosphatase 96 U/L (46-116); Anion Gap 15.6; Aspartate Amino Transferase 18 U/L (15-37); BUN Creatinine Ratio 14.8; Bilirubin Direct 0.1 mg/dL (0.0-0.2); Bilirubin Total 0.4 mg/dL (0.2-1.0); Calcium 9.3 mg/dL (8.5-10.1); Carbon Dioxide 24.1 mmol/L (21.0-32.0); Chloride 103 mmol/L (98-107); Chol HDL Ratio 4.5; Cholesterol 226 mg/dL (<=200); Estimated GFR (African America 57 (>=60); Estimated GFR (Non-African Ame 47 (>=60); Globulin 4.5 g/dL; Glucose 132 mg/dL (74-106); HDL Cholesterol 50 mg/dL (40-60); Magnesium 1.6 mg/dL (1.8-2.4); Phosphorus 3.8 mg/dL (2.6-4.7); Potassium 3.7 mmol/L (3.5-5.1); Sodium 139 mmol/L (136-145); Total Protein 8.3 g/dL (6.4-8.2); Triglycerides 253 mg/dL (<=150); VLDL CHOLESTEROL 50.6 mg/dL
[2024-04-02 08:14] LABS: Basophils Absolute Auto 0.1 10^3/uL (0.0-0.1); Basophils Percent Auto 0.5 % (0.2-2.0); Eosinophils Absolute Auto 0.2 10^3/uL (0.0-0.7); Eosinophils Percent Auto 2.1 % (0.9-7.0); Hematocrit 36.4 % (36.0-48.0); Hemoglobin 11.3 g/dL (12.0-16.0); Immature Granulocytes Abs Auto 0.07 10^3/uL (0.00-0.03); Immature Granulocytes Pct Auto 0.7 % (0.0-0.5); Lymphocytes Absolute Auto 1.3 10^3/uL (1.2-3.8); Lymphocytes Percent Auto 13.6 % (20.5-60.0); Mean Corpuscular Volume 86.9 fL (81.0-99.0); Mean Platelet Volume 8.7 fL (9.5-13.5); Monocytes Absolute Auto 0.4 10^3/uL (0.3-0.8); Monocytes Percent Auto 4.4 % (1.7-12.0); Neutrophils Absolute Auto 7.3 10^3/uL (1.4-6.5); Neutrophils Percent Auto 78.7 % (43.0-75.0); Platelet Count 336 10^3/uL (150-450); Red Blood Count 4.19 10^6/uL (4.20-5.40); Red Cell Distribution Width 15.8 % (11.0-15.0); White Blood Count 9.3 10^3/uL (4.0-11.0)
[2024-04-05 08:07] LABS: Tacrolimus (FK506), Blood 6.3 ng/mL (2.0-20.0)
== END 2024-04-02 07:22 | disposition home or self-care (01) ==
LOC: LAB 07:22
PROVIDERS: PCP Internal Medicine; Visit Provider Internal Medicine Nephrology
DX: R73.01 Impaired fasting glucose (principal); Z94.0 Kidney transplant status
CPT/HCPCS: 36415; 80053; 80061; 80197; 82248; 83735; 84100; 84550; 85025

== ENCOUNTER 2024-04-06 07:28 | Outpatient (OUT) | payer OTHER, SELFPAY ==
--- OUTSIDE RECORDS SUMMARY | 2024-04-06 07:31 | XMS_ITS ---
Patient Summarization (C-CDA 2.1 CCD) Created on: April 06, 2024 MANDEEP PURI : 1975 Sex: Female Author Organization Sample organization Care Team Providers Care Business Specialist Name Role Phone Ming Espinoza Primary Care Provider [phone] VIDAL MADRIGAL Attending Unavailable MING ESPINOZA Primary Care Unavailable Toni, Yaneth Unavailable Shabbir Jones Unavailable Dipika Stinson Unavailable Jesus Parham Unavailable DO Ming Espinoza Primary Care Provider MD Shabbir Jones Attending Provider MD Yaneth Muñoz Attending Provider MD Jesus Parham Attending Provider Estefania Vo Unavailable DO Ming Espinoza Primary Care Provider EB Forman Emergency Provider [phone] DO Blake Hinojosa Attending Provider [phone] JAVON, DR ZARAGOZA Admitting Unavailable DR MING ESPINOZA Primary Care Unavailable JAVON, DR ZARAGOZA Attending Unavailable MISC, DR ZARAGOZA Consulting Unavailable TONI, YANETH Admitting Unavailable DR MING ESPINOZA Primary Care Unavailable ALEXIS, DR ACOSTA Consulting Unavailable TONI, YANETH Attending Unavailable TONI, YANETH Consulting Unavailable DR MING ESPINOZA Primary Care Unavailable TONI, YANETH Attending Unavailable TONI, YANETH Consulting Unavailable TONI, YANETH Admitting Unavailable OTNI, YANETH Admitting Unavailable DR MING ESPINOZA Primary [...] Ceja Attending Provider CECILIA Edwards Attending Provider [phone] Self, Referral Admitting Unavailable Self, Referral Attending [...] sources) Allopurinol; Translations: [ALLOPURINOL] Drug Allergy 9 [place], [place] (8 sources) venlafaxine; Translations: [venlafaxine] Drug Allergy 2 Rash, Rash, [facility] (1 source) Allopurinol Drug Allergy 4 [facility] Repository (1 source) venlafaxine; Translations: [VENLAFAXINE HCL] Drug Allergy 1 [facility] Repository Encounters Encounter Date Encounter Type Care Provider Facility Start: 03-23-2024 End: 03-23-2024 ambulatory MING ESPINOZA Not Available Start: 03-15-2024 End: 03-15-2024 ambulatory Andreia Edwards [facility] Work Phone: Start: 03-15-2024 End: 03-15-2024 Departed Referred RAM CAR OPERATORRoxy Edwards Work Phone: [facility] [place] Work Phone: Start: 03-15-2024 End: 03-15-2024 Patient encounter procedure RAM CAR OPERATOR Andreia Edwards Work Phone: [facility] Justin Work Phone: Start: 12-23-2023 End: 12-23-2023 ambulatory MUNIRA PHAN [facility] Start: 12-01-2023 End: 12-01-2023 ambulatory MING ESPINOZA Not Available Start: 11-06-2023 End: 11-06-2023 Patient encounter procedure DO Ming Espinoza Work Phone: [facility] [address] Work Phone: Start: 11-06-2023 End: 11-06-2023 ambulatory DO Ming Espinoza Work Phone: [facility] Work Phone: Start: 10-13-2023 End: 10-13-2023 ambulatory MING ESPINOZA Not Available Start: 09-01-2023 End: 09-01-2023 ambulatory [facility] Start: 08-26[facility]2023 [facility] Start: 07-30-2023 End: 07-30-2023 ambulatory Referral Self Facility:[facility] Start: 06-28-2023 ambulatory SUJIT [facility] Start: [facility] Start: 04-30-2023 ambulatory SUJIT [facility] Start: 04-16-2023 End: 04-16-2023 ambulatory [facility] Start: 03-31-2023 ambulatory [facility] Start: 03-31-2023 Encounter for other preprocedural examination [facility] Start: 07-30-2022 End: 07-30-2022 ambulatory Yaneth Toni Other [employer] Other Start: 07-30-2022 Office outpatient vi sit 25 minutes Yaneth Toni [facility] Start: 07-29-2022 End: 07-30-2022 ambulatory YANETH TONI Facility: Start: 07-16-2022 End: 07-16-2022 ambulatory DO Ming Espinoza Work Phone: [facility] [employer] (formerly known as [employer] Work Phone: Start: 07-16-2022 End: 07-16-2022 Patient encounter procedure DO Ming Espinoza Work Phone: [facility] Start: 07-03-2022 End: 07-03-2022 ambulatory Estefania Vo Other [employer] Other Start: 07-03-2022 Follow-up encounter Estefania Vo [facility] Start: 06-20-2022 End: 06-20-2022 ambulatory Jesus Parham Other [employer] Other Start: 06-20-2022 Telephone encounter Jesus Macedo [facility] Vascular Surgery Start: 06-20-2022 End: 06-20-2022 Emergency department patient visit DO Ming Espinoza Work Phone: [facility]-Emergency Room Start: 06-18-2022 End: 06-18-2022 Admission to same day surgery center DO Ming Espinoza Work Phone: [facility] [place] Start: 06-14-2022 End: 06-14-2022 Patient encounter procedure DO Ming Espinoza Work Phone: [facility] Start: 06-06-2022 End: 06-07-[address] BRINDA HINOJOSA Facility:[facility]1 Start: 06-05-2022 End: 06-05-2022 Patient encounter procedure DO Ming Espinoza Work Phone: [facility]-Pre-Surgical Testing Start: 06-03-2022 End: 06-03-2022 ambulatory Jesus Parham Other [employer] Other Start: 06-03-2022 Encounter for other preprocedural examination Jesus Dione [facility] Vascular Surgery Start: 06-03-2022 Telephone encounter Jesus Hellen adler [facility] Vascular Surgery Start: 05-30-2022 End: 05-30-2022 ambulatory Jesus Dione Other [employer] Other Start: 05-30-2022 [facility] visit new patient Jesus Montanez chalo [facility] Vascular Surgery Start: 05-30-2022 End: 05-30-2022 Patient encounter procedure DO Ming Espinoza Work Phone: [facility]Ultrasound [facility] Start: 05-29-[address] BLAKE HINOJOSA [facility] ity:H1 Start: 05-02-2022 End: 05-02-2022 ambulatory Yaneth Toni Other [employer] Other Start: 05-02-2022 Office outpatient vi sit 25 minutes Yaneth Toni [facility] Start: 04-30-2022 End: 04-30-2022 ambulatory Dipika Stinson Other [employer] Other Start: 04-30-2022 Office outpatient vi sit 15 minutes Dipika Stinson [facility] Start: 04-30-2022 Encounter for preprocedural laboratory examination YANETH TONI [facility] Start: 04-29-2022 Encounter for other preprocedural examination DR DOCTOR ALEJANDRO [facility] Start: 04-27-2022 End: 04-28-2022 Encounter for other preprocedural examination DR MING ESPINOZA Facility:[facility]1 Start: 04-27-2022 End: 04-28-[address] MING ESPINOZA Facility:[facility] Start: 04-27-2022 End: 04-28-2022 Encounter for preprocedural laboratory examination YANETH MUÑOZ Facility:[facility]1 Start: 04-03-2022 Encounter for other specified special examinations DR DOCTOR ALEJANDRO [facility] Start: 04-01-2022 End: 04-01-2022 Admission to same day surgery center DO Ming Espinoza Work Phone: [facility] Start: 03-29-2022 End: 03-30-[address] DOCTOR ALEJANDRO Facility:[facility]1 Start: 03-29-2022 End: 03-30-2022 Encounter for other specified special examinations DR DOCTOR ALEJANDRO Facility:[facility]1 Start: 03-28-2022 End: 03-28-2022 Patient encounter procedure DO Ming Espinoza Work Phone: [facility] Start: 02-26-2022 End: 02-26-2022 ambulatory Shabbir Jones Other [employer] Other Start: 02-26-2022 Telephone encounter Shabbir VELAZQUEZ [employer] Start: 12-06-2021 End: 12-06-2021 ambulatory Yaneth Toni Other [employer] Other Start: 12-06-2021 Office outpatient vi sit 25 minutes Yaneth Muñoz [facility] Start: 12-03-2021 End: 12-04-2021 ambulatory YANETH MUÑOZ Facility:[facility]1 Start: 09-01-2021 End: 09-02-[address] MING ESPINOZA Facility:[facility]1 Start: 08-02-2019 End: 08-02-2019 Emergency department patient visit [facility] Start: 08-02-2019 End: 08-02-2019 Emergency department patient visit Vidal Madrigal Work Phone: [facility] ED Comment on above: Acute sepsis (HCC) ( Primary Dx); Acute cystitis without hematuria; Chronic renal failure, stage 4 (severe) (HCC); Polycystic kidney disease Goals Date Patient Goal Desired Activity /State Immunizations Immunization Date Immunization Notes Care Provider Chirag summers 10-13-2021 COVID-19 Ad26.COV2.S (Info) DO Ming Espinoza Work Phone: [facility] Medications Current Medications Medication Drug Class(es) Dates [...] acid 7540 MG / polyethylene glycol 3350 85613 MG / potassium chloride 1200 MG / sodium ascorbate 61724 MG / sodium chloride 3200 MG Powder for Oral Solution) / 1 (polyethylene glycol 3350 442817 MG / potassium chloride 1000 MG / sodium chloride 2000 MG / sodium sulfate 9000 MG Powder for Oral Solution) } Pack [Plenvu] (1 source) Osmotic Laxative, Vitamin C Start: 02-26-2022 Plenvu 140 GM dose 1 pouch at 4pm, dose 2 pouch A & B at 11pm Orally twice a day for 1 days BIN:[id number] PCN: [id number] GROUP:[id number] ID:[id number] February, Active cetirizine hydrochloride 10 mg oral [...] PO Daily August 02, 2019 12:00am calcitriol 0.75028 mg oral capsule (6 sources) Vitamin D3 [...] D2 Compound Start: 01-20-2019 End: 08-02-2019 take 71907 [IU] by mouth every month Ergocalciferol (Vitamin D2) Discontinued 74593 UNIT PO every month 12 January 20, [...] Payer Category Payer Unknown [employer] [place] [place] [address] xxxxxxxxx 2015-Present [phone] [address] [place] [address] xxxxxxxxx [id number] 1975 Unknown [id number] 2.16.840.1.181401.3.579.2.173 1975 Unknown [id number] 2.16.840.1.455724.3.579.2.593 1975 Unknown [id number] 2.16.840.1.634383.3.579.2.593 1975 Unknown [id number] 2.16.840.1.185489.3.579.2.593 1975 Unknown [id number] 2.16.840.1.621831.3.579.2.593 1975 Unknown [id number] 2.16.840.1.772918.3.579.2.593 1975 Unknown [id number] 2.16.840.1.550076.3.579.2.593 1975 Unknown [id number] 2.16.840.1.134795.3.579.2.593 1975 Unknown [id number] 2.16.840.1.522467.3.579.2.593 1975 Unknown [id number] 2.16.840.1.754015.3.579.2.125 9 1975 Unknown [id number] 2.16.840.1.953023.3.579.2.125 9 1975 Unknown [id number] 2.16.840.1.930963.3.579.2.125 9 1959 Self-pay [id number] 1959 Unknown [id number] 1959 Unknown [id number] 2.16.840.1.691886.19 Unknown [id number] 2.16.840.1.555635.19 Unknown [id number] 2.16.840.1.578991.3.579.2.531 Unknown [id number] 2.16.840.1.126899.3.579.2.531 Unknown [id number] 2.16.840.1.806665.3.579.2.531 Plan of Treatment Date Care Activity Detail Author Start: 03-16-2024 Bacteria identified in Urine by Culture [facility] Start: 03-15-2024 Bacteria identified in Urine by Culture [facility] Start: 11-06-2023 [facility] Start: 06-18-2022 [facility] Start: 06-18-2022 [facility] Start: 04-01-2022 [facility] Work Phone: Start: 06-06-2019 Influenza vaccination Flu vaccine (# 1) [place], [place] Start: 2015 Lipid screen Lipid screen [place], [place] Start: 1996 Cervical cancer screen Cervical canc er screen [place], [place] Start: 1994 DTaP/Tdap/Td vaccine (1 - Tdap) DTaP/Tdap/Td vaccine (1 - Tdap) [place], [place] Start: 1990 HIV screen HIV screen [place], [place] Start: 1975 Creatinine monitoring Creatinine mon [place], [place] Start: 1975 Potassium monitoring Potassium monit [place], [place] End: 08-02-2019 Bacteria identified Cx Nom (U) Urine Culture Microbiology STAT One Time for 1 Occurrences starting 08/02/2019 until 08/02/2019 [place], [place] Comment on above: One Time for 1 Occur rences starting 08/02/2019 until 08/02/2019 Bacteria identified Cx Nom (U) Urine Culture Microbiology STAT 08/02/2019 1:00 PM EDT [place], [place] End: 08-02-2019 Culture blood #1 Culture blood #1 Microbiology STAT One Time for 1 Occurrences starting 08/02/2019 until 08/02/2019 [place] Comment on above: One Time for 1 Occur rences starting 08/02/2019 until 08/02/2019 End: 08-02-2019 Culture blood #2 Culture blood #2 Microbiology STAT One Time for 1 Occurrences starting 08/02/2019 until 08/02/2019 [place] Comment on above: One Time for 1 Occur rences starting 08/02/2019 until 08/02/2019 EKG 12 Lead EKG 12 Lead ECG STAT 08/02/2019 12:25 PM EDT [place], [place] Homogenous nuclear A b pattern [Titer] in Serum [facility] Initiate Oxygen Ther apy Protocol Initiate Oxygen Therapy Protocol Respiratory Care Routine Daily until discontinued starting 08/02/2019, 2 completed [place], [place] Comment on above: Daily until disconti nued starting 08/02/2019, 2 completed End: 08-02-2019 Lactate, Sepsis Lactate, Sepsis Lab Timed Now Then Every 2hr for 2 Occurrences starting 08/02/2019 until 08/02/2019, 1 completed [place] Comment on above: Now Then Every 2hr f or 2 Occurrences starting 08/02/2019 until 08/02/2019, 1 completed Nuclear Ab [Titer] i n [facility] Patient Education [facility] Work Phone: Patient referral [facility] Work Phone: Potassium [Moles/vol ume] in Serum or Plasma [facility] Work Phone: Problems Active Problems Problem Classification Problem Date Documented Date Episodic/Chronic Acute and chronic tonsillitis (10 sources) Amygdalolith; Translations: [Other chronic diseases of tonsils and adenoids] 03-15-2024 Chronic Acute and unspecified renal failure (1 source) Chronic renal failure; Translations: [Chronic renal failure, stage 4 (severe) ([facility] Chronic Acute and unspecified renal [...] 05-02-2022 Episodic Other aftercare (2 sources) Other usp (current) drug therapy; Translations: [Other director long term care (current) drug therapy] Onset: 03-31-2023 Episodic Other [...] mammograph y of bilateral breasts DO Ming [employer] Phone: Start: 06-18-2022 Arteriovenous fistulization DO Ming AlexisXMPie Phone: Start: 05-30-2022 Ultrasound (US) dopp ler flow mapping of vein of upper limb DO Ming IbarraXMPie Phone: Start: 04-01-2022 Screening colonoscopy D O Ming [employer] Phone: Start: 08-02-2019 Assay of lactate VIDAL KAITLIN Start: 08-02-2019 Assay of troponin quantitative VIDAL KAITLIN Start: 08-02-2019 Assay of lactate Vidal Kaitlin Work Phone: Start: 08-02-2019 Assay of troponin quantitative Vidal Kaitlin Work Phone: Start: 08-02-2019 Culture bacterial quanttative colony count urine VIADL KAITLIN Start: 08-02-2019 Radiologic exam ches t [...] Nom (U) ORGANISM: Escherichia coli (MDRO) (O:ESCCOLMDRO) [place] Count >100,000 Aerobic CODI Charge (NMIC56) SUSCEPTIBILITY [...] RESISTANT TO ALL B-LACTAM DRUGS. PERFORMED BY: [place] [address] PATHOLOGIST BACK TENDER ANAHY MCKEE M.D. Normal [facility] Comment on above: Performed By: #### C UU #### [address] Documentationon 03-03-2024 Documentation [id number] Antonoi Puri i 1975 F Date Provider Department Center 03/03/2024 750-JOSE RAFAEL GAVIRIA TXP None Family History Problem Relation Age of Onset Fibromyalgia Mother Heart disease Father Hypertension Sister Polycystic kidney disease Sister Hypertension Brother Polycystic kidney disease Brother Family Status - Relation Status Age at Mother Father Sister Brother Normal [facility] Follow-Upon 12-23-2023 Follow-Up [id number] Antonio Puri i 1975 F Date Provider Department Center 12/23/2023 124-MUNIRA PHAN TXP None Family History Problem Relation Age of Onset Fibromyalgia Mother Heart disease Father Hypertension Sister Polycystic kidney disease Sister Hypertension Brother Polycystic kidney disease Brother Family Status - Relation Status Age at Mother Father Sister Brother Level of Service:02821 NC OFFICE/OUTPATIENT ESTABLISHED MOD MDM 30 MIN Reason for Visit and Comments: Kidney Follow-up [] - Pt has questions about her lab work. Normal [facility] PAPITO Antinuclear Antibodieson 11-06-2023 Antinuclear Abs, IFA Negative Normal . [facility] Comment on above: Result Comment: Nega tive <1:80 Borderline 1:80 Positive >1:80 ICAP nomenclature: AC-0 For more information about Hep-2 cell patterns use ANApatterns.org, the official website for the International Consensus on Antinuclear Antibody (PAPITO) Patterns (ICAP). Performed at: [facility] [id number] Stave Block Splitter: Gabriel Whitman PhD, Phone: [phone] PERFORMED BY: [place] [address] PATHOLOGIST BACK TENDER ANAHY MCKEE M.D. Performed By: #### C K, CMP, CRP, CBC, ESR #### [facility] [address] [place] [address] #### PAPITO #### [facility] , Alanine aminotransferase [En zymatic activity/volume] in Serum or PlasmaOrdered By: Perri Ceja on 11-06-2023 ALT [Catalytic activity/Vol] 20 U/L Normal 7-52 [facility] Comment on above: Performed By: #### C K, CMP, CRP, CBC, ESR #### [facility] [address] [place] [address] [place] #### PAPITO #### [facility] , Albumin [Mass/volume] in Ser um or Plasma by Bromocresol green (BCG) dye binding methoOrdered By: Perri Ceja on 11-06-2023 Albumin BCG dye [Mass/Vol] 4.7 g/dL 3.5-5.7 [facility] Alkaline phosphatase [Enzyma tic activity/volume] in Serum or PlasmaOrdered By: Perri Ceja on 11-06-2023 ALP [Catalytic activity/Vol] 96 U/L Normal 34-104 [facility] Comment on above: Performed By: #### C K, CMP, CRP, CBC, ESR #### [place] [address] [place] #### PAPITO #### [facility] , Aspartate aminotransferase [ Enzymatic activity/volume] in Serum or PlasmaOrdered By: Perri Ceja on 11-06-2023 AST [Catalytic activity/Vol] 16 U/L Normal 13-39 [facility] Comment on above: Performed By: #### C K, CMP, CRP, CBC, ESR #### [place] [address] [place] #### PAPITO #### [facility] , Automated basophil %Ordered By: Perri Ceja on 11-06-2023 Basophils/100 WBC (Bld) 0.7 % Normal . [facility] Comment on above: Performed By: #### C K, CMP, CRP, CBC, ESR #### [place] [address] [place] #### PAPITO #### [facility] , Automated basophil countOrde red By: Perri Ceja on 11-06-2023 Basophils (Bld) [#/Vol] 0.1 10*3/uL Normal 0.0-0.2 [facility] Comment on above: Performed By: #### C K, CMP, CRP, CBC, ESR #### [place] [address] [place] #### PAPITO #### [facility] , Automated blood monocyte cou ntOrdered By: Perri Ceja on 11-06-2023 Monocytes (Bld) [#/Vol] 0.6 10*3/uL Normal 0.0-0.8 [facility] Comment on above: Performed By: #### C K, CMP, CRP, CBC, ESR #### [place] [address] [place] #### PAPITO #### [facility] , Automated eosinophil %Ordere d By: Perri Ceja on 11-06-2023 Eosinophils/100 WBC (Bld) 3.0 % Normal . [facility] Comment on above: Performed By: #### C K, CMP, CRP, CBC, ESR #### [facility] [address] [place] [address] [place] #### PAPITO #### [facility] , Automated eosinophil countOr dered By: Perri Ceja on 11-06-2023 Eosinophils (Bld) [#/Vol] 0.3 10*3/uL Normal 0.0-0.45 [facility] Comment on above: Performed By: #### C K, CMP, CRP, CBC, ESR #### [address] #### PAPITO #### [facility] , Automated monocyte %Ordered By: Perri Ceja on 11-06-2023 Monocytes/100 WBC (Bld) 6.6 % Normal . [facility] Comment on above: Performed By: #### C K, CMP, CRP, CBC, ESR #### [place] [address] [place] #### PAPITO #### [facility] , Automated neutrophil %Ordere d By: Perri Ceja on 11-06-2023 Neutrophils/100 WBC (Bld) 72.1 % Normal . [facility] Comment on above: Performed By: #### C K, CMP, CRP, CBC, ESR #### [place] [address] [place] #### PAPITO #### [facility] , Bilirubin.total [Mass/volume ] in Serum or PlasmaOrdered By: Perri Ceja on 11-06-2023 Bilirubin [Mass/Vol] 0.4 mg/dL Normal 0.3-1.0 [facility] Comment on above: Performed By: #### C K, CMP, CRP, CBC, ESR #### [facility] [address] [place] [address] #### PAPITO #### [facility] , C reactive protein [Mass/vol ume] in Serum or PlasmaOrdered By: Perri Ceja on 11-06-2023 CRP [Mass/Vol] 2.0 mg/dL 0.0-0.5 [facility] C-Reactive Proteinon 024 C-Reactive Protein 2.0 mg/dL High 0.0-0.5 [facility] Comment on above: Result Comment: PERF ORMED BY: [place] [address] PATHOLOGIST BACK TENDER ANAHY MCKEE M.D. Performed By: #### C K, CMP, CRP, CBC, ESR #### [address] #### PAPITO #### [facility] , Calcium [Mass/volume] in Ser um or PlasmaOrdered By: Perri Ceja on 11-06-2023 Calcium [Mass/Vol] 10.3 mg/dL Normal 8.6-10.3 [facility] Comment on above: Performed By: #### C K, CMP, CRP, CBC, ESR #### [address] #### PAPITO #### [facility] , Carbon dioxide, total [Moles /volume] in Serum or PlasmaOrdered By: Perri Ceja on 11-06-2023 CO2 [Moles/Vol] 26.1 mmol/L Normal 21.0-31.0 [facility] Comment on above: Performed By: #### C K, CMP, CRP, CBC, ESR #### [facility] [address] [place] [address] [place] #### PAPITO #### [facility] , Chloride [Moles/volume] in S aislinn or PlasmaOrdered By: Perri Ceja on 11-06-2023 Chloride [Moles/Vol] 104 mmol/L Normal 98-107 [facility] Comment on above: Performed By: #### C K, CMP, CRP, CBC, ESR #### [facility] [address] [place] [address] [place] #### PAPITO #### [facility] , Complete Blood Count Auto Di ffon 11-06-2023 Mean Corpuscular HGB Conc 33.6 g/dL Normal 32.0-35.0 [facility] Comment on above: Performed By: #### C K, CMP, CRP, CBC, ESR #### [facility] [address] [place] [address] [place] #### PAPITO #### [facility] , NRBC% 0.1 /100{WBC} Normal 0-0.5 [facility] Comment on above: Performed By: #### C K, CMP, CRP, CBC, ESR #### [place] [address] [place] #### PAPITO #### [facility] , Comprehensive Metabolic Pane jonathan 11-06-2023 Albumin [Mass/Vol] 4.7 g/dL Normal 3.5-5.7 [facility] Comment on above: Performed By: #### C K, CMP, CRP, CBC, ESR #### [place] [address] [place] #### PAPITO #### [facility] , GFR/1.73 sq M.predicted MDRD (S/P/Bld) [Vol rate/Area] 57.919 mL/min/{1.73_m2} Normal [facility] Comment on above: Performed By: #### C K, CMP, CRP, CBC, ESR #### [facility] [address] [place] [address] [place] #### PAPITO #### [facility] , Creatine kinase [Enzymatic a ctivity/volume] in Serum or PlasmaOrdered By: Perri Ceja on 11-06-2023 CK [Catalytic activity/Vol] 30 U/L Normal 30-223 [facility] Comment on above: Result Comment: PERF ORMED BY: [place] [address] PATHOLOGIST BACK TENDER ANAHY MCKEE M.D. Performed By: #### C K, CMP, CRP, CBC, ESR #### [address] #### PAPITO #### [facility] , Creatinine [Mass/volume] in Serum or PlasmaOrdered By: Perri Ceja on 11-06-2023 Creatinine [Mass/Vol] 1.17 mg/dL Normal 0.60-1.20 [facility] Comment on above: Performed By: #### C K, CMP, CRP, CBC, ESR #### [address] #### PAPITO #### [facility] , Erythrocyte Sedimentation Ra mathieu 11-06-2023 ESR (Bld) [Velocity] 49 mm/h High 0-19 [facility] Comment on above: Result Comment: PERF ORMED BY: [place] [address] PATHOLOGIST BACK TENDER ANAHY MCKEE M.D. Performed By: #### C K, CMP, CRP, CBC, ESR #### [place] [address] [place] #### PAPITO #### [facility] , Erythrocyte distribution wid th [Ratio] by Automated countOrdered By: Perri Ceja on 11-06-2023 Erythrocyte distribution width (RBC) [Ratio] 15.3 % Normal 11.9-15.3 [facility] Comment on above: Performed By: #### C K, CMP, CRP, CBC, ESR #### [place] [address] [place] #### PAPITO #### [facility] , Erythrocyte sedimentation ra te by Photometric methodOrdered By: Perri Ceja on 11-06-2023 ESR Photometric method (Bld) [Velocity] 49 mm/hr 0-19 [facility] Erythrocytes [#/volume] in B lood by Automated countOrdered By: Perri Ceja on 11-06-2023 RBC (Bld) [#/Vol] 4.60 10*6/uL Normal 3.60-5.00 [facility] Comment on above: Performed By: #### C K, CMP, CRP, CBC, ESR #### [facility] [address] [place] [address] [place] #### PAPITO #### [facility] , Glucose [Mass/volume] in Ser um or PlasmaOrdered By: Perri Ceja on 11-06-2023 Glucose [Mass/Vol] 91 mg/dL Normal 70-100 [facility] Comment on above: ADA recommended refe rence rangeRandom Glucose Reference Range is dependent on time and content of last meal. Glucose of more than 200 mg/dL in a nonstressed, ambulatory subject supports the diagnosis of Diabetes Mellitus. Result Comment: [place] om Glucose Reference Range is dependent on time and content of last meal. Glucose of more than 200 mg/dL in a nonstressed, ambulatory subject supports the diagnosis of Diabetes Mellitus. ADA recommended reference range Performed By: #### C K, CMP, CRP, CBC, ESR #### [place] [address] [place] #### PAPITO #### [facility] , Hematocrit [Volume Fraction] of Blood by Automated countOrdered By: Perri Ceja on 11-06-2023 Hematocrit (Bld) [Volume fraction] 38.9 % Normal 34.0-46.4 [facility] Comment on above: Performed By: #### C K, CMP, CRP, CBC, ESR #### [facility] [address] [place] [address] [place] #### PAPITO #### [facility] , Hemoglobin [Mass/volume] in BloodOrdered By: Perri Ceja on 11-06-2023 Hemoglobin (Bld) [Mass/Vol] 13.1 g/dL Normal 11.8-15.4 [facility] Comment on above: Performed By: #### C K, CMP, CRP, CBC, ESR #### [facility] [address] [place] [address] [place] #### PAPITO #### [facility] , Leukocytes [#/volume] correc noah for nucleated erythrocytes in Blood by Automated counOrdered By: Perri Ceja on 11-06-2023 WBC corrected for nucl RBC Auto (Bld) [#/Vol] 8.8 10*3/uL 3.8-11.6 [facility] Leukocytes [#/volume] in Blo od by Automated countOrdered By: Perri Ceja on 11-06-2023 WBC (Bld) [#/Vol] 8.8 10*3/uL Normal 3.8-11.6 [facility] Comment on above: Performed By: #### C K, CMP, CRP, CBC, ESR #### [place] [address] [place] #### PAPITO #### [facility] , Lymphocytes [#/volume] in Bl ood by Automated countOrdered By: Perri Ceja on 11-06-2023 Lymphocytes (Bld) [#/Vol] 1.5 10*3/uL Normal 1.00-4.8 [facility] Comment on above: Performed By: #### C K, CMP, CRP, CBC, ESR #### [place] [address] [place] #### PAPITO #### [facility] , Lymphocytes/100 leukocytes i n Blood by Automated countOrdered By: Perri Ceja on 11-06-2023 Lymphocytes/100 WBC (Bld) 17.6 % Normal . [facility] Comment on above: Performed By: #### C K, CMP, CRP, CBC, ESR #### [place] [address] [place] #### PAPITO #### [facility] , MCH [Entitic mass] by Automa noah countOrdered By: Perri Ceja on 11-06-2023 MCH (RBC) [Entitic mass] 28.4 pg Normal 24.7-34.3 [facility] Comment on above: Performed By: #### C K, CMP, CRP, CBC, ESR #### [facility] [address] [place] [address] [place] #### PAPITO #### [facility] , MCHC Auto (RBC) [Mass/Vol]Or dered By: Perri Ceja on 11-06-2023 MCHC (RBC) [Mass/Vol] 33.6 g/dL 32.0-35.0 [facility] MCV [Entitic volume] by Auto mated countOrdered By: Perri Ceja on 11-06-2023 MCV (RBC) [Entitic vol] 84.6 fL Normal 80-100 [facility] Comment on above: Performed By: #### C K, CMP, CRP, CBC, ESR #### [facility] [address] [place] [address] [place] #### PAPITO #### [facility] , Neutrophils [#/volume] in Bl ood by Automated countOrdered By: Perri Ceja on 11-06-2023 Neutrophils (Bld) [#/Vol] 6.3 10*3/uL Normal 1.8-7.7 [facility] Comment on above: Performed By: #### C K, CMP, CRP, CBC, ESR #### [facility] [address] [place] [address] [place] #### PPAITO #### [facility] , No Panel InformationOrdered By: Perri Ceja on 11-06-2023 Estimated GFR (CKD-EPI) 57.919 mL/Min [facility] Creatinine Clearance (Chem N/A [facility] Nucleated erythrocytes [Pres ence] in Blood by Automated countOrdered By: Perri Ceja on 11-06-2023 Nucleated RBC Auto Ql (Bld) 0.1 /100{WBC} 0-0.5 [facility] Platelet mean volume [Entiti c volume] in Blood by Automated countOrdered By: Perri Ceja on 11-06-2023 Platelet mean volume (Bld) [Entitic vol] 6.9 fL Normal 6.3-10.7 [facility] Comment on above: Performed By: #### C K, CMP, CRP, CBC, ESR #### [address] #### PAPITO #### [facility] , Platelets [#/volume] in Bloo d by Automated countOrdered By: Perri Ceja on 11-06-2023 Platelets (Bld) [#/Vol] 393 10*3/uL Normal 150-450 [facility] Comment on above: Performed By: #### C K, CMP, CRP, CBC, ESR #### [address] #### PAPITO #### [facility] , Potassium [Moles/volume] in Serum or PlasmaOrdered By: Perri Ceja on 11-06-2023 Potassium [Moles/Vol] 3.8 mmol/L Normal 3.5-5.1 [facility] Comment on above: Performed By: #### C K, CMP, CRP, CBC, ESR #### [address] #### PAPITO #### [facility] , Protein [Mass/volume] in Ser um or PlasmaOrdered By: Perri Ceja on 11-06-2023 Protein [Mass/Vol] 7.7 g/dL Normal 6.4-8.9 [facility] Comment on above: Performed By: #### C K, CMP, CRP, CBC, ESR #### [place] [address] [place] #### PAPITO #### [facility] , Serum globulin measurement b y calculation (mass/volume)Ordered By: Perri Ceja on 11-06-2023 Globulin (S) [Mass/Vol] 3.0 g/dL Normal [facility] Comment on above: Performed By: #### C K, CMP, CRP, CBC, ESR #### [facility] [address] [place] [address] [place] #### PAPITO #### [facility] , Serum or plasma albumin/glob ulin mass ratioOrdered By: Perri Ceja on 11-06-2023 Albumin/Globulin [Mass ratio] 1.6 {ratio} Normal [facility] Comment on above: Performed By: #### C K, CMP, CRP, CBC, ESR #### [place] [address] [place] #### PAPITO #### [facility] , Serum or plasma anion gap de terminationOrdered By: Perri Ceja on 11-06-2023 Anion gap [Moles/Vol] 12.7 mmol/L Normal 6.0-15.0 [facility] Comment on above: Performed By: #### C K, CMP, CRP, CBC, ESR #### [facility] [address] [place] [address] #### PAPITO #### [facility] , Sodium [Moles/volume] in Ser um or PlasmaOrdered By: Perri Ceja on 11-06-2023 Sodium [Moles/Vol] 139 mmol/L Normal 136-145 [facility] Comment on above: Performed By: #### C K, CMP, CRP, CBC, ESR #### [facility] [address] [place] [address] [place] #### PAPITO #### [facility] , Urea nitrogen [Mass/volume] in Serum or PlasmaOrdered By: Perri Ceja on 11-06-2023 Urea nitrogen [Mass/Vol] 17 mg/dL Normal 7-25 [facility] Comment on above: Performed By: #### C K, CMP, CRP, CBC, ESR #### [facility] [address] [place] [address] [place] #### PAPITO #### [facility] , Orders Onlyon 12-28-2023 Orders Only [id number] Antonio Puri i 1975 F Date Provider Department Center 10/02/2023 1971-LU [facility]ENS [facility] None Family History Problem Relation Age of Onset Fibromyalgia Mother Heart disease Father Hypertension Sister Polycystic kidney disease Sister Hypertension Brother Polycystic kidney disease Brother Family Status - Relation Status Age at Mother Father Sister Brother Normal [facility] Follow-Upon 09-01-2023 Follow-Up [id number] Antonio Puri i 1975 F Date Provider Department Center 09/01/2023 344-DOLORES SUJIT TXP None Family History Problem Relation Age of Onset Fibromyalgia Mother Heart disease Father Hypertension Sister Polycystic kidney disease Sister Hypertension Brother Polycystic kidney disease Brother Family Status - Relation Status Age at Mother Father Sister Brother Level of Service:68761 NC OFFICE/OUTPATIENT ESTABLISHED MOD MDM 30-39 MIN () Reason for Visit and Comments: Kidney Follow-up [] - Patient reports pain all over her body that comes and goes. She would like to discuss swelling in her feet. Normal [facility] BILIRUBIN, DIRECTon 08-26-20 Magnesium [Mass/Vol] 0.1 mg/dL Normal 0-0.2 [facility] Comment on above: Performed By: #### L [id number] #### [facility] ([facility]) [address] [place] [address] CBC WITH AUTO DIFFERENTIALon 08-26-2023 Basophils (Bld) [#/Vol] 0.05 10*3/uL Normal 0.00-0.20 [facility] Comment on above: Performed By: #### L [id number] #### [facility] ([facility]) [address] [place] [address] Basophils/100 WBC (Bld) 0.6 % Normal 0.0-1.0 [facility] Comment on above: Performed By: #### L [id number] #### [facility] ([facility]) [address] [place] [address] Eosinophils (Bld) [#/Vol] 0.20 10*3/uL Normal 0.00-0.50 [facility] Comment on above: Performed By: #### L [id number] #### [facility] ([facility] [address] [place] [address] Eosinophils/100 WBC (Bld) 2.5 % Normal 0.0-6.0 [facility] Comment on above: Performed By: #### L [id number] #### [facility] ([facility]) [address] [place] [address] Erythrocyte distribution width (RBC) [Ratio] 14.4 % Normal 11.5-15.0 [facility] Comment on above: Performed By: #### L [id number] #### [facility] ([facility]) [address] [place] [address] ERYTHROCYTE MEAN CORPUSCULAR HEMOGLOBIN CONCENTRATION (G/DL) BY AUTOMATED 32.9 g/dL Normal 32.0-35.0 [facility] Comment on above: Performed By: #### L [id number] #### [facility] ([facility]) [address] [place] [address] Hematocrit (Bld) [Volume fraction] 40.4 % Normal 36.0-48.0 [facility] Comment on above: Performed By: #### L [id number] #### [facility] ([facility]) [address] [place] [address] Hemoglobin (Bld) [Mass/Vol] 13.3 g/dL Normal 12.0-15.0 [facility] Comment on above: Performed By: #### L [id number] #### [facility] ([facility]) [address] [place] [address] Immature granulocytes (Bld) [#/Vol] 0.06 10*3/uL Normal 0.00-0.20 [facility] Comment on above: Performed By: #### L [id number] #### [facility] ([facility]) [address] [place] [address] Immature granulocytes/100 WBC (Bld) 0.7 % Normal 0.0-1.0 [facility] Comment on above: Performed By: #### L [id number] #### [facility] ([facility]) [address] [place] [address] Lymphocytes (Bld) [#/Vol] 1.19 10*3/uL Low 1.20-4.00 [facility] Comment on above: Performed By: #### L [id number] #### [facility] ([facility]) [address] [place] [address] Lymphocytes/100 WBC (Bld) 14.6 % Low 20.0-45.0 [facility] Comment on above: Performed By: #### L [id number] #### [facility] ([facility] [address] [place] [address] MCH (RBC) [Entitic mass] 28.4 pg Normal 27.0-33.0 [facility] Comment on above: Performed By: #### L [id number] #### [facility] ([facility]) [address] [place] [address] MCV (RBC) [Entitic vol] 86.1 fL Normal 82.0-98.0 [facility] Comment on above: Performed By: #### L [id number] #### [facility] ([facility]) [address] [place] [address] Monocytes (Bld) [#/Vol] 0.42 10*3/uL Normal 0.10-1.00 [facility] Comment on above: Performed By: #### L [id number] #### [facility] ([facility]) [address] [place] [address] Monocytes/100 WBC (Bld) 5.2 % Normal 5.0-12.0 [facility] Comment on above: Performed By: #### L [id number] #### [facility] ([facility]) [address] [place] [address] Neutrophils (Bld) [#/Vol] 6.22 10*3/uL Normal 1.60-7.60 [facility] Comment on above: Performed By: #### L [id number] #### [facility] ([facility]) [address] [place] [address] Neutrophils/100 WBC (Bld) 76.4 % High 40.0-72.0 [facility] Comment on above: Performed By: #### L [id number] #### [facility] ([facility]) [address] [place] [address] NRBC (PER 100 WBCS) BY AUTOMATED COUNT 0.0 % Normal 0 [facility] Comment on above: Performed By: #### L [id number] #### [facility] ([facility]) [address] [place] [address] PLATELETS (10*3/UL) IN BLOOD AUTOMATED COUNT 374 10*3/uL Normal 150-400 [facility] Comment on above: Performed By: #### L [id number] #### [facility] ([facility]) [address] [place] [address] RBC (Bld) [#/Vol] 4.69 10*6/uL Normal 3.80-5.00 [facility] Comment on above: Performed By: #### L [id number] #### [facility] ([facility]) [address] [place] [address] WBC (Bld) [#/Vol] 8.14 10*3/uL Normal 4.00-10.60 [facility] Comment on above: Performed By: #### L [id number] #### [facility] ([facility]) [address] [place] [address] COMPREHENSIVE METABOLIC PANE Jonathan 08-26-2023 Albumin [Mass/Vol] 4.7 g/dL Normal 3.5-5.7 [facility] Comment on above: Performed By: #### L [id number] ####[facility] ([facility])[address] [place] [address] ALP [Catalytic activity/Vol] 90 U/L Normal 34-104 [facility] Comment on above: Performed By: #### L [id number] ####[facility] ([facility])[address] [place] [address] ALT [Catalytic activity/Vol] 26 U/L Normal 7-52 [facility] Comment on above: Performed By: #### L [id number] ####[facility] ([facility])[address] [place] [address] Anion gap [Moles/Vol] 12 mmol/L Normal 7-20 [facility] Comment on above: Performed By: #### L [id number] ####[facility] ([facility])[address] [place] [address] AST [Catalytic activity/Vol] 22 U/L Normal 13-39 [facility] Comment on above: Performed By: #### L [id number] ####[facility] ([facility])[address] [place] [address] Bilirubin [Mass/Vol] 0.4 mg/dL Normal 0.3-1.0 [facility] Comment on above: Performed By: #### L [id number] ####[facility] ([facility])[address] [place] [address] Calcium [Mass/Vol] 9.6 mg/dL Normal 8.6-10.3 [facility] Comment on above: Performed By: #### L [id number] ####[facility] ([facility])[address] [place] [address] Chloride [Moles/Vol] 103 mmol/L Normal 98-107 [facility] Comment on above: Performed By: #### L [id number] ####[facility] ([facility])[address] [place] [address] CO2 [Moles/Vol] 26 mmol/L Normal 21-31 [facility] Comment on above: Performed By: #### L [id number] ####[facility] ([facility])[address] [place] [address] Creatinine [Mass/Vol] 1.12 mg/dL Normal 0.60-1.20 [facility] Comment on above: Performed By: #### L [id number] ####[facility] ([facility])[address] [place] [address] GLOMERULAR FILTRATION RATE ML/MIN/1.73 SQ M.PREDICTED 61.0 mL/min/1.73m*2 Normal >60.0 [facility] Comment on above: Result Comment: [facility]???s estimated glomerular filtration rate (eGFR) will [...] of individuals. Performed By: #### L [id number] ####[facility] ([facility])[address] [place] [address] Glucose [Mass/Vol] 125 mg/dL High 70-100 [facility] Comment on above: Performed By: #### L [id number] ####[facility] ([facility])[address] [place] [address] Potassium [Moles/Vol] 3.1 mmol/L Low 3.5-5.1 [facility] Comment on above: Performed By: #### L [id number] ####[facility] ([facility])[address] [place] [address] Protein [Mass/Vol] 7.4 g/dL Normal 6.0-8.3 [facility] Comment on above: Performed By: #### L [id number] ####[facility] ([facility])[address] [place] [address] Sodium [Moles/Vol] 138 mmol/L Normal 136-145 [facility] Comment on above: Performed By: #### L [id number] ####[facility] ([facility] [place] [address] Urea nitrogen [Mass/Vol] 15 mg/dL Normal 7-25 [facility] Comment on above: Performed By: #### L [id number] ####[facility] ([facility])[address] [place] [address] UREA NITROGEN/CREATININE (MASS RATIO) IN SER/PLAS 13.4 Normal [facility] Comment on above: Performed By: #### L [id number] ####[facility] ([facility])[address] [facility] [place] [address] HEMOGLOBIN A1Con 08-26-2023 Glucose [Mass/Vol] 108 mg/dL Normal [facility] Comment on above: Performed By: #### L [id number] #### [facility] ([facility]) [address] [place] [address] HbA1c (Bld) [Mass fraction] 5.4 % Normal 4.0-6.0 [facility] Comment on above: Performed By: #### L [id number] #### [facility] ([facility]) [address] [facility] [place] [address] LIPID PANELon 08-26-2023 CHOL/HDL 4.7 mg/dL Normal [facility] Comment on above: Performed By: #### L [id number] #### [facility] ([facility]) [address] [facility] [place] [address] Cholesterol [Mass/Vol] 198 mg/dL Normal 120-200 [facility] Comment on above: Performed By: #### L [id number] #### [facility] ([facility]) [address] [place] [address] Magnesium [Mass/Vol] 248 mg/dL High 40-149 [facility] Comment on above: Result Comment: TRIG LYCERIDE REFERENCE RANGE: 20 YEARS AND OLDER CARDIOVASCULAR RISK LESS THAN 150 mg/dL LOW RISK 150 TO 199 mg/dL BORDERLINE RISK 200 mg/dL AND GREATER HIGH RISK Performed By: #### L [id number] #### [facility] ([facility]) [address] [place] [address] Magnesium [Mass/Vol] 106 mg/dL Normal 0-160 [facility] Comment on above: Performed By: #### L [id number] #### [facility] ([facility]) [address] [place] [address] Magnesium [Mass/Vol] 42 mg/dL Normal 23-92 [facility] Comment on above: Performed By: #### L [id number] #### [facility] ([facility]) [address] [place] [address] NON HDL CHOL. (LDL+VLDL) 156 Normal [facility] Comment on above: Performed By: #### L [id number] #### [facility] ([facility]) [address] [place] [address] TOTAL VLDL-C 50 mg/dL High 0-40 [facility] Comment on above: Performed By: #### L [id number] #### [facility] ([facility]) [address] [place] [address] Labon 08-26-2023 Lab [id number] Antonio Puri i 1975 F Date Provider Department Center 08/26/2023 2245-[facility] LAB RESOURCE [facility] Family History Problem Relation Age of Onset Fibromyalgia Mother Heart disease Father Hypertension Sister Polycystic kidney disease Sister Hypertension Brother Polycystic kidney disease Brother Family Status - Relation Status Age at Mother Father Sister Brother Normal [facility] MAGNESIUMon 08-26-2023 Magnesium [Mass/Vol] 1.5 mg/dL Low 1.9-2.7 [facility] Comment on above: Performed By: #### L [id number] #### [facility] ([facility]) [address] [place] [address] PHOSPHORUSon 08-26-2023 Magnesium [Mass/Vol] 2.9 mg/dL Normal 2.5-5.0 [facility] Comment on above: Performed By: #### L [id number] ####[facility] ([facility])[address] [place] [address] TACROLIMUS LEVELon Tacrolimus (Bld) [Mass/Vol] 9.2 ng/mL Normal 5.0-20.0 [facility] Comment on above: Result Comment: The [employer] Tacrolimus assay is a delayed one-step immunoassay for the quantitative determination of tacrolimus in human whole blood using the chemiluminescent microparticle immunoassay (CMIA) technology with flexible assay protocols, referred to as Chemiflex. Performed By: #### L [id number] #### [facility] ([facility]) [address] [place] [address] URIC ACIDon 08-26-2023 Magnesium [Mass/Vol] 5.1 mg/dL Normal 2.3-6.6 [facility] Comment on above: Performed By: #### L [id number] #### [facility] ([facility]) [address] [place] [address] COMPREHENSIVE METABOLIC PANE Jonathan 08-06-2023 Albumin [Mass/Vol] 4.7 g/dL Normal 3.5-5.7 [facility] Comment on above: Performed By: #### L [id number] #### [facility] ([facility]) [address] [place] [address] ALP [Catalytic activity/Vol] 85 U/L Normal 34-104 [facility] Comment on above: Performed By: #### L [id number] #### [facility] ([facility]) [address] [place] [address] ALT [Catalytic activity/Vol] 25 U/L Normal 7-52 [facility] Comment on above: Performed By: #### L [id number] #### [facility] ([facility]) [address] [place] [address] Anion gap [Moles/Vol] 14 mmol/L Normal 7-20 [facility] Comment on above: Performed By: #### L [id number] #### [facility] ([facility]) [address] [place] [address] AST [Catalytic activity/Vol] 23 U/L Normal 13-39 [facility] Comment on above: Performed By: #### L [id number] #### [facility] ([facility]) [address] [place] [address] Bilirubin [Mass/Vol] 0.5 mg/dL Normal 0.3-1.0 [facility] Comment on above: Performed By: #### L [id number] #### [facility] ([facility]) [address] [place] [address] Calcium [Mass/Vol] 9.5 mg/dL Normal 8.6-10.3 [facility] Comment on above: Performed By: #### L [id number] #### [facility] (BEAKER) [address] [place] [address] Chloride [Moles/Vol] 105 mmol/L Normal 98-107 [facility] Comment on above: Performed By: #### L [id number] #### [facility] (BEAKER) [address] [place] [address] CO2 [Moles/Vol] 21 mmol/L Normal 21-31 [facility] Comment on above: Performed By: #### L [id number] #### [facility] (BEAKER) [address] [place] [address] Creatinine [Mass/Vol] 1.23 mg/dL High 0.60-1.20 [facility] Comment on above: Performed By: #### L [id number] #### [facility] ([facility]) [address] [place] [address] GLOMERULAR FILTRATION RATE ML/MIN/1.73 SQ M.PREDICTED 54.5 mL/min/1.73m*2 Low >60.0 [facility] Comment on above: Result Comment: [facility]???s estimated glomerular filtration rate (eGFR) will [...] individuals. Performed By: #### L [id number] #### [facility] ([facility] [address] [place] [address] Glucose [Mass/Vol] 133 mg/dL High 70-100 [facility] Comment on above: Performed By: #### L [id number] #### [facility] ([facility]) [address] [place] [address] Potassium [Moles/Vol] 3.4 mmol/L Low 3.5-5.1 [facility] Comment on above: Performed By: #### L [id number] #### [facility] ([facility]) [address] [place] [address] Protein [Mass/Vol] 7.4 g/dL Normal 6.0-8.3 [facility] Comment on above: Performed By: #### L [id number] #### [facility] ([facility]) [address] [place] [address] Sodium [Moles/Vol] 137 mmol/L Normal 136-145 [facility] Comment on above: Performed By: #### L [id number] #### [facility] ([facility]) [address] [place] [address] Urea nitrogen [Mass/Vol] 14 mg/dL Normal 7-25 [facility] Comment on above: Performed By: #### L [id number] #### [facility] ([facility]) [address] [place] [address] UREA NITROGEN/CREATININE (MASS RATIO) IN SER/PLAS 11.4 Normal [facility] Comment on above: Performed By: #### L [id number] #### [facility] ([facility]) [address] [place] [address] Labon 08-06-2023 Lab [id number] Antonio Puri i 1975 F Date Provider Department Center 08/06/2023 2245-[facility] LAB RESOURCE [facility] C Family History Problem Relation Age of Onset Fibromyalgia Mother Heart disease Father Hypertension Sister Polycystic kidney disease Sister Hypertension Brother Polycystic kidney disease Brother Family Status - Relation Status Age at Mother Father Sister Brother Normal [facility] Orders Onlyon 08-06-2023 Orders Only [id number] Antonio Puri i 1975 F Date Provider Department Center 08/06/2023 Gino3TAINA TREVINO TXP None Family History Problem Relation Age of Onset Fibromyalgia Mother Heart disease Father Hypertension Sister Polycystic kidney disease Sister Hypertension Brother Polycystic kidney disease Brother Family Status - Relation Status Age at Mother Father Sister Brother Normal [facility] SINGLE ANTIGEN CLASS Ion AB SCREEN COMMENTS No Class I donor spe cific antibody identified [facility] Comment on above: Order Comment: To be used after initial monthly order expires Performed By: #### L [id number] #### [facility] TISSUE TYPING (HISTOTRAC) [address] [place], [place] [address] CLASS I TESTED DATE Normal [facility] Comment on above: Order Comment: To be used after initial monthly order expires Performed By: #### L [id number] #### [facility] TISSUE TYPING (HISTOTRAC) [address] [place] [address] [facility] SINGLE ANTIGEN CLASS 1 TEST METHOD Class I Single Antigen Normal [facility] Comment on above: Order Comment: To be used after initial monthly order expires Performed By: #### L [id number] #### [facility] TISSUE TYPING (HISTOTRAC) [address] [place] [address] [facility] SINGLE ANTIGEN CLASS IIon AB SCREEN COMMENTS No Class II donor specific antibody identified Normal [facility] Comment on above: Order Comment: To be used after initial monthly order expires Performed By: #### L [id number] #### [facility] TISSUE TYPING (HISTOTRAC) [address] [place] [address] [facility] CLASS II TESTED DATE [facility] Comment on above: Order Comment: To be used after initial monthly order expires Performed By: #### L [id number] #### [facility] TISSUE TYPING (HISTOTRAC) [address] [place] [address] [facility] SIGNED BY Signed by Nelson escamilla CHT(ACHI) MT(ASCP), Blending Coordinator Transplant Immunology Normal [facility] Comment on above: Order Comment: To be used after initial monthly order expires Performed By: #### L [id number] #### [facility] TISSUE TYPING (HISTOTRAC) [address] [place], [place] [address] Result Comment: Clas s I Antigen Microbeads SINGLE ANTIGEN CLASS 2 TEST METHOD Class II Single Antigen Normal [facility] Comment on above: Order Comment: To be used after initial monthly order expires Result Comment: Clas s II Antigen Microbeads Performed By: #### L [id number] #### [facility] TISSUE TYPING (HISTOTRAC) [address] [place] [address] [facility] MM screening mammo BI w/CADo n 07-30-2023 MM screening mammo BI w/CAD [facility] [place] [address] [place] [address] Mammography Report Signed Patient: Mandeep Puri MR#: [id number] 15 : 1975 Acct:[id number] Age/Sex: 47 / F ADM Date: 07/30/23 Loc: [place] Room: Type: [facility] Attending Dr: Referral Self Copies to: [...] Messina Jr., D.O.07/30/2023 4:05 PM Dictation Location: [facility] Transcribed By: [facility] 07/30/231604 Dictated By: Evan Messina Jr, DO 07/30/231603 Signed By: 07/30/231604 Normal [facility] CBC WITH AUTO DIFFERENTIALon 07-24-2023 Basophils (Bld) [#/Vol] 0.06 10*3/uL Normal 0.00-0.20 [facility] Comment on above: Performed By: #### L [id number] ####[facility] (BEAKER)[address] [facility] [place] [address] Basophils/100 WBC (Bld) 0.7 % Normal 0.0-1.0 [facility] Comment on above: Performed By: #### L [id number] ####[facility] HOSPITAL LAB (BEAKER)[address] [place] [address] Eosinophils (Bld) [#/Vol] 0.28 10*3/uL Normal 0.00-0.50 [facility] Comment on above: Performed By: #### L [id number] ####[facility] (BEAKER)[address] [place] [address] Eosinophils/100 WBC (Bld) 3.3 % Normal 0.0-6.0 [facility] Comment on above: Performed By: #### L [id number] ####[facility] (BEAKER)[address] [facility] [place] [address] Erythrocyte distribution width (RBC) [Ratio] 14.6 % Normal 11.5-15.0 [facility] Comment on above: Performed By: #### L [id number] ####[facility] (BEAKER)[address] [place] [address] ERYTHROCYTE MEAN CORPUSCULAR HEMOGLOBIN CONCENTRATION (G/DL) BY AUTOMATED 33.2 g/dL Normal 32.0-35.0 [facility] Comment on above: Performed By: #### L [id number] ####[facility] (BEAKER)[address] [place] [address] Hematocrit (Bld) [Volume fraction] 39.7 % Normal 36.0-48.0 [facility] Comment on above: Performed By: #### L [id number] ####[facility] (BEAKER)[address] [place] [address] Hemoglobin (Bld) [Mass/Vol] 13.2 g/dL Normal 12.0-15.0 [facility] Comment on above: Performed By: #### L [id number] ####[facility] (BEAKER)[address] [place] [address] Immature granulocytes (Bld) [#/Vol] 0.09 10*3/uL Normal 0.00-0.20 [facility] Comment on above: Performed By: #### L [id number] ####[facility] (BEAKER)[address] [place] [address] Immature granulocytes/100 WBC (Bld) 1.1 % High 0.0-1.0 [facility] Comment on above: Performed By: #### L [id number] ####[facility] (BEAKER)[address] [place] [address] Lymphocytes (Bld) [#/Vol] 1.41 10*3/uL Normal 1.20-4.00 [facility] Comment on above: Performed By: #### L [id number] ####[facility] (BEAKER)[address] [place] [address] Lymphocytes/100 WBC (Bld) 16.5 % Low 20.0-45.0 [facility] Comment on above: Performed By: #### L [id number] ####[facility] (BEAKER)[address] [place] [address] MCH (RBC) [Entitic mass] 28.9 pg Normal 27.0-33.0 [facility] Comment on above: Performed By: #### L [id number] ####[facility] (BEAKER)[address] [place] [address] MCV (RBC) [Entitic vol] 86.9 fL Normal 82.0-98.0 [facility] Comment on above: Performed By: #### L [id number] ####[facility] HOSPITAL LAB (BEAKER)[address] [place] [address] Monocytes (Bld) [#/Vol] 0.44 10*3/uL Normal 0.10-1.00 [facility] Comment on above: Performed By: #### L [id number] ####[facility] (BEAKER)[address] [place] [address] Monocytes/100 WBC (Bld) 5.1 % Normal 5.0-12.0 [facility] Comment on above: Performed By: #### L [id number] ####[facility] (BEAKER)[address] [place] [address] Neutrophils (Bld) [#/Vol] 6.28 10*3/uL Normal 1.60-7.60 [facility] Comment on above: Performed By: #### L [id number] ####[facility] (BEAKER)[address] [place] [address] Neutrophils/100 WBC (Bld) 73.3 % High 40.0-72.0 [facility] Comment on above: Performed By: #### L [id number] ####[facility] (BEAKER)[address] [place] [address] NRBC (PER 100 WBCS) BY AUTOMATED COUNT 0.0 % Normal 0 [facility] Comment on above: Performed By: #### L [id number] ####[facility] (BEAKER)[address] [place] [address] PLATELETS (10*3/UL) IN BLOOD AUTOMATED COUNT 371 10*3/uL Normal 150-400 [facility] Comment on above: Performed By: #### L [id number] ####[facility] (BEAKER)[address] [place] [address] RBC (Bld) [#/Vol] 4.57 10*6/uL Normal 3.80-5.00 [facility] Comment on above: Performed By: #### L [id number] ####[facility] (BEAKER)[address] [place] [address] WBC (Bld) [#/Vol] 8.56 10*3/uL Normal 4.00-10.60 [facility] Comment on above: Performed By: #### L [id number] ####[facility] (BEAKER)[address] [place] [address] Labon 07-24-2023 Lab [id number] Khushi,Brand i 1975 F Date Provider Department Center 07/24/2023 2245-[facility] LAB RESOURCE [facility] OPD [facility] Family History Problem Relation Age of Onset Fibromyalgia Mother Heart disease Father Hypertension Sister Polycystic kidney disease Sister Hypertension Brother Polycystic kidney disease Brother Family Status - Relation Status Age at Mother Father Sister Brother Normal [facility] Orders Onlyon 07-24-2023 Orders Only [id number] Khushi,Brand i 1975 F Date Provider Department Center 07/24/2023 1971-[facility] TXP None Family History Problem Relation Age of Onset Fibromyalgia Mother Heart disease Father Hypertension Sister Polycystic kidney disease Sister Hypertension Brother Polycystic kidney disease Brother Family Status - Relation Status Age at Mother Father Sister Brother Normal [facility] BASIC METABOLIC PANELon 07-06 Anion gap [Moles/Vol] 16 mmol/L Normal 7-20 [facility] Comment on above: Performed By: #### L [id number] ####[facility] (BEAKER)[address] [place] [address] Calcium [Mass/Vol] 9.7 mg/dL Normal 8.6-10.3 [facility] Comment on above: Performed By: #### L [id number] ####[facility] (BEAKER)[address] [place] [address] Chloride [Moles/Vol] 104 mmol/L Normal 98-107 [facility] Comment on above: Performed By: #### L [id number] ####[facility] (BEAKER)[address] [place] [address] CO2 [Moles/Vol] 23 mmol/L Normal 21-31 [facility] Comment on above: Performed By: #### L [id number] ####[facility] ([facility])[address] [place] [address] Creatinine [Mass/Vol] 1.18 mg/dL Normal 0.60-1.20 [facility] Comment on above: Performed By: #### L [id number] ####[facility] ([facility])[address] [place] [address] GLOMERULAR FILTRATION RATE ML/MIN/1.73 SQ M.PREDICTED 57.3 mL/min/1.73m*2 Low >60.0 [facility] Comment on above: Result Comment: [facility]???s estimated glomerular filtration rate (eGFR) will [...] of individuals. Performed By: #### L [id number] ####[facility] ([facility])[address] [place] [address] Glucose [Mass/Vol] 134 mg/dL High 70-100 [facility] Comment on above: Performed By: #### L [id number] ####[facility] ([facility])[address] [place] [address] Potassium [Moles/Vol] 3.5 mmol/L Normal 3.5-5.1 [facility] Comment on above: Performed By: #### L [id number] ####[facility] ([facility])[address] [place] [address] Sodium [Moles/Vol] 139 mmol/L Normal 136-145 [facility] Comment on above: Performed By: #### L [id number] ####[facility] ([facility] [place] [address] Urea nitrogen [Mass/Vol] 16 mg/dL Normal 7-25 [facility] Comment on above: Performed By: #### L [id number] ####[facility] ([facility])[address] [place] [address] UREA NITROGEN/CREATININE (MASS RATIO) IN SER/PLAS 13.6 Normal [facility] Comment on above: Performed By: #### L [id number] ####[facility] ([facility])[address] [place] [address] CBC WITH AUTO DIFFERENTIALon 07-17-2023 Basophils (Bld) [#/Vol] 0.05 10*3/uL Normal 0.00-0.20 [facility] Comment on above: Performed By: #### L [id number] #### [facility] ([facility]) [address] [place] [address] Basophils/100 WBC (Bld) 0.6 % Normal 0.0-1.0 [facility] Comment on above: Performed By: #### L [id number] #### [facility] ([facility]) [address] [place] [address] Eosinophils (Bld) [#/Vol] 0.21 10*3/uL Normal 0.00-0.50 [facility] Comment on above: Performed By: #### L [id number] #### [facility] ([facility]) [address] [place] [address] Eosinophils/100 WBC (Bld) 2.7 % Normal 0.0-6.0 [facility] Comment on above: Performed By: #### L [id number] #### [facility] ([facility]) [address] [place] [address] Erythrocyte distribution width (RBC) [Ratio] 14.3 % Normal 11.5-15.0 [facility] Comment on above: Performed By: #### L [id number] #### [facility] ([facility] [address] [place] [address] ERYTHROCYTE MEAN CORPUSCULAR HEMOGLOBIN CONCENTRATION (G/DL) BY AUTOMATED 32.6 g/dL Normal 32.0-35.0 [facility] Comment on above: Performed By: #### L [id number] #### [facility] ([facility] [address] [place] [address] Hematocrit (Bld) [Volume fraction] 38.3 % Normal 36.0-48.0 [facility] Comment on above: Performed By: #### L [id number] #### [facility] ([facility]) [address] [place] [address] Hemoglobin (Bld) [Mass/Vol] 12.5 g/dL Normal 12.0-15.0 [facility] Comment on above: Performed By: #### L [id number] #### [facility] ([facility]) [address] [place] [address] Immature granulocytes (Bld) [#/Vol] 0.10 10*3/uL Normal 0.00-0.20 [facility] Comment on above: Performed By: #### L [id number] #### [facility] ([facility]) [address] [place] [address] Immature granulocytes/100 WBC (Bld) 1.3 % High 0.0-1.0 [facility] Comment on above: Performed By: #### L [id number] #### [facility] (BEAKER) [address] [place] [address] Lymphocytes (Bld) [#/Vol] 1.37 10*3/uL Normal 1.20-4.00 [facility] Comment on above: Performed By: #### L [id number] #### [facility] (BEAKER) [address] [place] [address] Lymphocytes/100 WBC (Bld) 17.4 % Low 20.0-45.0 [facility] Comment on above: Performed By: #### L [id number] #### [facility] (BEAKER) [address] [place] [address] MCH (RBC) [Entitic mass] 28.9 pg Normal 27.0-33.0 [facility] Comment on above: Performed By: #### L [id number] #### [facility] ([facility]) [address] [place] [address] MCV (RBC) [Entitic vol] 88.5 fL Normal 82.0-98.0 [facility] Comment on above: Performed By: #### L [id number] #### [facility] ([facility]) [address] [place] [address] Monocytes (Bld) [#/Vol] 0.44 10*3/uL Normal 0.10-1.00 [facility] Comment on above: Performed By: #### L [id number] #### [facility] ([facility]) [address] [place] [address] Monocytes/100 WBC (Bld) 5.6 % Normal 5.0-12.0 [facility] Comment on above: Performed By: #### L [id number] #### [facility] ([facility]) [address] [place] [address] Neutrophils (Bld) [#/Vol] 5.69 10*3/uL Normal 1.60-7.60 [facility] Comment on above: Performed By: #### L [id number] #### [facility] ([facility]) [address] [place] [address] Neutrophils/100 WBC (Bld) 72.4 % High 40.0-72.0 [facility] Comment on above: Performed By: #### L [id number] #### [facility] ([facility]) [address] [place] [address] NRBC (PER 100 WBCS) BY AUTOMATED COUNT 0.0 % Normal 0 [facility] Comment on above: Performed By: #### L [id number] #### [facility] ([facility] [address] [place] [address] PLATELETS (10*3/UL) IN BLOOD AUTOMATED COUNT 349 10*3/uL Normal 150-400 [facility] Comment on above: Performed By: #### L [id number] #### [facility] ([facility]) [address] [place] [address] RBC (Bld) [#/Vol] 4.33 10*6/uL Normal 3.80-5.00 [facility] Comment on above: Performed By: #### L [id number] #### [facility] ([facility]) [address] [place] [address] WBC (Bld) [#/Vol] 7.86 10*3/uL Normal 4.00-10.60 [facility] Comment on above: Performed By: #### L [id number] #### [facility] ([facility]) [address] [place] [address] HEPATIC FUNCTION PANELon Albumin [Mass/Vol] 4.4 g/dL Normal 3.5-5.7 [facility] Comment on above: Performed By: #### L [id number] #### [facility] ([facility]) [address] [place] [address] ALP [Catalytic activity/Vol] 83 U/L Normal 34-104 [facility] Comment on above: Performed By: #### L [id number] #### [facility] ([facility]) [address] [place] [address] ALT [Catalytic activity/Vol] 25 U/L Normal 7-52 [facility] Comment on above: Performed By: #### L [id number] #### [facility] ([facility]) [address] [place] [address] AST [Catalytic activity/Vol] 21 U/L Normal 13-39 [facility] Comment on above: Performed By: #### L [id number] #### [facility] ([facility]) [address] [place] [address] Bilirubin [Mass/Vol] 0.4 mg/dL Normal 0.3-1.0 [facility] Comment on above: Performed By: #### L [id number] #### [facility] [address] [place] [address] Magnesium [Mass/Vol] 0.1 mg/dL Normal 0-0.2 [facility] Comment on above: Performed By: #### L [id number] #### [facility] ([facility]) [address] [place] [address] Protein [Mass/Vol] 7.3 g/dL Normal 6.0-8.3 [facility] Comment on above: Performed By: #### L [id number] #### [facility] [address] [place] [address] Labon 07-17-2023 Lab [id number] KhushiAntonio dougherty i 1975 Date Provider Department Center 07/17/2023 2245-[facility] LAB RESOURCE [facility] Family History Problem Relation Age of Onset Fibromyalgia Mother Heart disease Father Hypertension Sister Polycystic kidney disease Sister Hypertension Brother Polycystic kidney disease Brother Family Status - Relation Status Age at Mother Father Sister Brother Normal [facility] MAGNESIUMon 07-17-2023 Magnesium [Mass/Vol] 1.6 mg/dL Low 1.9-2.7 [facility] Comment on above: Performed By: #### L [id number] #### [facility] ([facility]) [address] [place] [address] Orders Onlyon 07-17-2023 Orders Only [id number] Khushi,Brand i 1975 Date Provider Department Center 07/17/2023 1971-[facility] TXP None Family History Problem Relation Age of Onset Fibromyalgia Mother Heart disease Father Hypertension Sister Polycystic kidney disease Sister Hypertension Brother Polycystic kidney disease Brother Family Status - Relation Status Age at Mother Father Sister Brother Normal [facility] PHOSPHORUSon 07-17-2023 Magnesium [Mass/Vol] 3.3 mg/dL Normal 2.5-5.0 [facility] Comment on above: Performed By: #### L [id number] #### [facility] TISSUE TYPING (HISTOTRAC) [address] [place] [address] [facility] TACROLIMUS LEVELon Tacrolimus (Bld) [Mass/Vol] 6.5 ng/mL Normal 5.0-20.0 [place] [facility] Comment on above: Result Comment: The MARC[employer] Tacrolimus assay is a delayed one-step immunoassay for the quantitative determination of tacrolimus in human whole blood using the chemiluminescent microparticle immunoassay (CMIA) technology with flexible assay protocols, referred to as Chemiflex. Performed By: #### L [id number] #### [facility] ([facility]) [address] [place] [address] URIC ACIDon 07-17-2023 Magnesium [Mass/Vol] 4.9 mg/dL Normal 2.3-6.6 [facility] Comment on above: Performed By: #### L [id number] #### [facility] ([facility]) [address] [place] [address] 29on 07-16-2023 29 Addended by: LU STEPHENS on: 07/16/2023 03:23 PM Modules accepted: Orders Normal [facility] Documentationon 07-16-2023 Documentation [id number] Antonio Puri i 1975 F Date Provider Department Center 07/16/2023 1971-LU STEPHENS TXP None Family History Problem Relation Age of Onset Fibromyalgia Mother Heart disease Father Hypertension Sister Polycystic kidney disease Sister Hypertension Brother Polycystic kidney disease Brother Family Status - Relation Status Age at Mother Father Sister Brother Reason for Visit and Comments: Kidney Follow-up [] Normal [facility] BASIC METABOLIC PANELon 06-07 Anion gap [Moles/Vol] 13 mmol/L Normal 7-20 [facility] Comment on above: Performed By: #### L [id number] #### [facility] ([facility]) [address] [place] [address] Calcium [Mass/Vol] 9.6 mg/dL Normal 8.6-10.3 [facility] Comment on above: Performed By: #### L [id number] #### [facility] ([facility]) [address] [place] [address] Chloride [Moles/Vol] 102 mmol/L Normal 98-107 [facility] Comment on above: Performed By: #### L [id number] #### [facility] ([facility]) [address] [place] [address] CO2 [Moles/Vol] 25 mmol/L Normal 21-31 [facility] Comment on above: Performed By: #### L [id number] #### [facility] ([facility]) [address] [place] [address] Creatinine [Mass/Vol] 1.26 mg/dL High 0.60-1.20 [facility] Comment on above: Performed By: #### L [id number] #### [facility] ([facility]) [address] [place] [address] GLOMERULAR FILTRATION RATE ML/MIN/1.73 SQ M.PREDICTED 53.0 mL/min/1.73m*2 Low >60.0 [facility] Comment on above: Result Comment: The [facility]???s estimated glomerular filtration rate (eGFR) will [...] individuals. Performed By: #### L [id number] #### [facility] ([facility]) [address] [place] [address] Glucose [Mass/Vol] 128 mg/dL High 70-100 [facility] Comment on above: Performed By: #### L [id number] #### [facility] ([facility]) [address] [place] [address] Potassium [Moles/Vol] 3.1 mmol/L Low 3.5-5.1 [facility] Comment on above: Performed By: #### L [id number] #### [facility] ([facility]) [address] [place] [address] Sodium [Moles/Vol] 137 mmol/L Normal 136-145 [facility] Comment on above: Performed By: #### L [id number] #### [facility] ([facility] [address] [place] [address] Urea nitrogen [Mass/Vol] 14 mg/dL Normal 7-25 [facility] Comment on above: Performed By: #### L [id number] #### [facility] ([facility]) [address] [place] [address] UREA NITROGEN/CREATININE (MASS RATIO) IN SER/PLAS 11.1 Normal [facility] Comment on above: Performed By: #### L [id number] #### [facility] ([facility]) [address] [place] [address] CBC WITH AUTO DIFFERENTIALon 06-28-2023 Basophils (Bld) [#/Vol] 0.06 10*3/uL Normal 0.00-0.20 [facility] Comment on above: Performed By: #### L [id number] ####[facility] ([facility] [place] [address] Basophils/100 WBC (Bld) 0.6 % Normal 0.0-1.0 [facility] Comment on above: Performed By: #### L [id number] ####[facility] ([facility])[address] [place] [address] Eosinophils (Bld) [#/Vol] 0.18 10*3/uL Normal 0.00-0.50 [facility] Comment on above: Performed By: #### L [id number] ####[facility] ([facility] [place] [address] Eosinophils/100 WBC (Bld) 1.8 % Normal 0.0-6.0 [facility] Comment on above: Performed By: #### L [id number] ####[facility] ([facility] [place] [address] Erythrocyte distribution width (RBC) [Ratio] 14.5 % Normal 11.5-15.0 [facility] Comment on above: Performed By: #### L [id number] ####[facility] ([facility])[address] [place] [address] ERYTHROCYTE MEAN CORPUSCULAR HEMOGLOBIN CONCENTRATION (G/DL) BY AUTOMATED 33.1 g/dL Normal 32.0-35.0 [facility] Comment on above: Performed By: #### L [id number] ####[facility] ([facility])[address] [place] [address] Hematocrit (Bld) [Volume fraction] 40.5 % Normal 36.0-48.0 [facility] Comment on above: Performed By: #### L [id number] ####[facility] ([facility])[address] [place] [address] Hemoglobin (Bld) [Mass/Vol] 13.4 g/dL Normal 12.0-15.0 [facility] Comment on above: Performed By: #### L [id number] ####[facility] ([facility])[address] [place] [address] Immature granulocytes (Bld) [#/Vol] 0.13 10*3/uL Normal 0.00-0.20 [facility] Comment on above: Performed By: #### L [id number] ####[facility] ([facility])[address] [place] [address] Immature granulocytes/100 WBC (Bld) 1.3 % High 0.0-1.0 [facility] Comment on above: Performed By: #### L [id number] ####[facility] ([facility])[address] [place] [address] Lymphocytes (Bld) [#/Vol] 1.30 10*3/uL Normal 1.20-4.00 [facility] Comment on above: Performed By: #### L [id number] ####[facility] ([facility])[address] [place] [address] Lymphocytes/100 WBC (Bld) 13.3 % Low 20.0-45.0 [facility] Comment on above: Performed By: #### L [id number] ####[facility] ([facility] [place] [address] MCH (RBC) [Entitic mass] 29.2 pg Normal 27.0-33.0 [facility] Comment on above: Performed By: #### L [id number] ####[facility] ([facility])[address] [place] [address] MCV (RBC) [Entitic vol] 88.2 fL Normal 82.0-98.0 [facility] Comment on above: Performed By: #### L [id number] ####[facility] ([facility])[address] [place] [address] Monocytes (Bld) [#/Vol] 0.51 10*3/uL Normal 0.10-1.00 [facility] Comment on above: Performed By: #### L [id number] ####[facility] ([facility])[address] [place] [address] Monocytes/100 WBC (Bld) 5.2 % Normal 5.0-12.0 [facility] Comment on above: Performed By: #### L [id number] ####[facility] ([facility] [place] [address] Neutrophils (Bld) [#/Vol] 7.62 10*3/uL High 1.60-7.60 [facility] Comment on above: Performed By: #### L [id number] ####[facility] ([facility])[address] [place] [address] Neutrophils/100 WBC (Bld) 77.8 % High 40.0-72.0 [facility] Comment on above: Performed By: #### L [id number] ####[facility] ([facility])[address] [place] [address] NRBC (PER 100 WBCS) BY AUTOMATED COUNT 0.0 % Normal 0 [facility] Comment on above: Performed By: #### L [id number] ####[facility] ([facility])[address] [place] [address] PLATELETS (10*3/UL) IN BLOOD AUTOMATED COUNT 334 10*3/uL Normal 150-400 [facility] Comment on above: Performed By: #### L [id number] ####[facility] ([facility])[address] [place] [address] RBC (Bld) [#/Vol] 4.59 10*6/uL Normal 3.80-5.00 [facility] Comment on above: Performed By: #### L [id number] ####[facility] ([facility])[address] [place] [address] WBC (Bld) [#/Vol] 9.80 10*3/uL Normal 4.00-10.60 [facility] Comment on above: Performed By: #### L [id number] ####[facility] ([facility])[address] [place] [address] HEPATIC FUNCTION PANELon Albumin [Mass/Vol] 4.7 g/dL Normal 3.5-5.7 [facility] Comment on above: Performed By: #### L [id number] #### [facility] ([facility]) [address] [place] [address] ALP [Catalytic activity/Vol] 91 U/L Normal 34-104 [facility] Comment on above: Performed By: #### L [id number] #### [facility] ([facility]) [address] [place] [address] ALT [Catalytic activity/Vol] 29 U/L Normal 7-52 [facility] Comment on above: Performed By: #### L [id number] #### [facility] ([facility]) [address] [place] [address] AST [Catalytic activity/Vol] 25 U/L Normal 13-39 [facility] Comment on above: Performed By: #### L [id number] #### [facility] ([facility]) [address] [place] [address] Bilirubin [Mass/Vol] 0.5 mg/dL Normal 0.3-1.0 [facility] Comment on above: Performed By: #### L [id number] #### [facility] ([facility]) [address] [place] [address] Magnesium [Mass/Vol] 0.1 mg/dL Normal 0-0.2 [facility] Comment on above: Performed By: #### L [id number] #### [facility] ([facility]) [address] [place] [address] Protein [Mass/Vol] 7.9 g/dL Normal 6.0-8.3 [facility] Comment on above: Performed By: #### L [id number] #### [facility] ([facility]) [address] [place] [address] LIPID PANELon 06-28-2023 CHOL/HDL 4.1 mg/dL Normal [facility] Comment on above: Performed By: #### L [id number] #### [facility] ([facility]) [address] [place] [address] Cholesterol [Mass/Vol] 192 mg/dL Normal 120-200 [facility] Comment on above: Performed By: #### L [id number] #### [facility] ([facility]) [address] [place] [address] Magnesium [Mass/Vol] 228 mg/dL High 40-149 [facility] Comment on above: Result Comment: TRIG LYCERIDE REFERENCE RANGE: 20 YEARS AND OLDER CARDIOVASCULAR RISK LESS THAN 150 mg/dL LOW RISK 150 TO 199 mg/dL BORDERLINE RISK 200 mg/dL AND GREATER HIGH RISK Performed By: #### L [id number] #### [facility] ([facility]) [address] [place] [address] Magnesium [Mass/Vol] 99 mg/dL Normal 0-160 [facility] Comment on above: Performed By: #### L [id number] #### [facility] ([facility]) [address] [place] [address] Magnesium [Mass/Vol] 47 mg/dL Normal 23-92 [facility] Comment on above: Performed By: #### L [id number] #### [facility] ([facility]) [address] [place] [address] NON HDL CHOL. (LDL+VLDL) 145 Normal [facility] Comment on above: Performed By: #### L [id number] #### [facility] ([facility]) [address] [place] [address] TOTAL VLDL-C 46 mg/dL High 0-40 [facility] Comment on above: Performed By: #### L [id number] #### [facility] ([facility]) [address] [place] [address] Labon 06-28-2023 Lab [id number] Antonio Puri i 1975 F Date Provider Department Center 06/28/2023 2245-[facility] OPD LAB RESOURCE [facility] Family History Problem Relation Age of Onset Fibromyalgia Mother Heart disease Father Hypertension Sister Polycystic kidney disease Sister Hypertension Brother Polycystic kidney disease Brother Family Status - Relation Status Age at Mother Father Sister Brother Normal [facility] MAGNESIUMon 06-28-2023 Magnesium [Mass/Vol] 1.4 mg/dL Low 1.9-2.7 [facility] Comment on above: Performed By: #### L [id number] ####[facility] ([facility])[address] [place] [address] PHOSPHORUSon 06-28-2023 Magnesium [Mass/Vol] 2.7 mg/dL Normal 2.5-5.0 [facility] Comment on above: Performed By: #### L [id number] ####[facility] ([facility])[address] [place] [address] TACROLIMUS LEVELon Tacrolimus (Bld) [Mass/Vol] 6.9 ng/mL Normal 5.0-20.0 [facility] Comment on above: Result Comment: The [employer] Tacrolimus assay is a delayed one-step immunoassay for the quantitative determination of tacrolimus in human whole blood using the chemiluminescent microparticle immunoassay (CMIA) technology with flexible assay protocols, referred to as Chemiflex. Performed By: #### L [id number] #### [facility] TISSUE TYPING ([facility]IST[facility]) [address] [place] [address] [place] URIC ACIDon 06-28-2023 Magnesium [Mass/Vol] 5.0 mg/dL Normal 2.3-6.6 [facility] Comment on above: Performed By: #### L [id number] #### [facility] ([facility]) [address] [place] [address] 36on 06-23-2023 36 I reviewed the case with the resident. I agree with the assessment and plan as documented in the resident's note. Ming Kidd, PharmD, BCTXP Normal [facility] Telephoneon 06-17-2023 Telephone [id number] Antonio Puri i 1975 F Date Provider Department Center 06/17/2023 LI[facility] CREWS TXP None Family History Problem Relation Age of Onset Fibromyalgia Mother Heart disease Father Hypertension Sister Polycystic kidney disease Sister Hypertension Brother Polycystic kidney disease Brother Family Status - Relation Status Age at Mother Father Sister Brother Reason for Visit and Comments: Transplant Pharmacist - Drug Information [[id number]] Normal [facility] BASIC METABOLIC PANELon 08-2 Anion gap [Moles/Vol] 13 mmol/L Normal 7-20 [facility] Comment on above: Performed By: #### L [id number] ####[facility] ([facility])[address] [place] [address] Calcium [Mass/Vol] 9.5 mg/dL Normal 8.6-10.3 [facility] Comment on above: Performed By: #### L [id number] ####[facility] ([facility])[address] [place] [address] Chloride [Moles/Vol] 101 mmol/L Normal 98-107 [facility] Comment on above: Performed By: #### L [id number] ####[facility] ([facility] [place] [address] CO2 [Moles/Vol] 27 mmol/L Normal 21-31 [facility] Comment on above: Performed By: #### L [id number] ####[facility] ([facility])[address] [place] [address] Creatinine [Mass/Vol] 1.28 mg/dL High 0.60-1.20 [facility] Comment on above: Performed By: #### L [id number] ####[facility] ([facility])[address] [place] [address] GLOMERULAR FILTRATION RATE ML/MIN/1.73 SQ M.PREDICTED 52.0 mL/min/1.73m*2 Low >60.0 [facility] Comment on above: Result Comment: The [facility]???s estimated glomerular filtration rate (eGFR) will [...] of individuals. Performed By: #### L [id number] ####[facility] ([facility])[address] [place] [address] Glucose [Mass/Vol] 163 mg/dL High 70-100 [facility] Comment on above: Performed By: #### L [id number] ####[facility] ([facility] [place] [address] Potassium [Moles/Vol] 3.1 mmol/L Low 3.5-5.1 [facility] Comment on above: Performed By: #### L [id number] ####[facility] ([facility] [place] [address] Sodium [Moles/Vol] 138 mmol/L Normal 136-145 [facility] Comment on above: Performed By: #### L [id number] ####[facility] (BE[facility]ER)[address] [place] [address] Urea nitrogen [Mass/Vol] 18 mg/dL Normal 7-25 [facility] Comment on above: Performed By: #### L [id number] ####[facility] ([facility] [place] [address] UREA NITROGEN/CREATININE (MASS RATIO) IN SER/PLAS 14.1 Normal [facility] Comment on above: Performed By: #### L [id number] ####[facility] ([facility])[address] [place] [address] CBC WITH AUTO DIFFERENTIALon 05-29-2023 Basophils (Bld) [#/Vol] 0.06 10*3/uL Normal 0.00-0.20 [facility] Comment on above: Performed By: #### L [id number] ####[facility] ([facility] [place] [address] Basophils/100 WBC (Bld) 0.6 % Normal 0.0-1.0 [facility] Comment on above: Performed By: #### L [id number] ####[facility] ([facility] [place] [address] Eosinophils (Bld) [#/Vol] 0.18 10*3/uL Normal 0.00-0.50 [facility] Comment on above: Performed By: #### L [id number] ####[facility] ([facility] [place] [address] Eosinophils/100 WBC (Bld) 1.9 % Normal 0.0-6.0 [facility] Comment on above: Performed By: #### L [id number] ####[facility] ([facility] [place] [address] Erythrocyte distribution width (RBC) [Ratio] 14.3 % Normal 11.5-15.0 [facility] Comment on above: Performed By: #### L [id number] ####[facility] (BE[facility]ER)[address] [place] [address] ERYTHROCYTE MEAN CORPUSCULAR HEMOGLOBIN CONCENTRATION (G/DL) BY AUTOMATED 32.4 g/dL Normal 32.0-35.0 [facility] Comment on above: Performed By: #### L [id number] ####[facility] (BE[facility]ER)[address] [place] [address] Hematocrit (Bld) [Volume fraction] 37.4 % Normal 36.0-48.0 [facility] Comment on above: Performed By: #### L [id number] ####[facility] ([facility])[address] [place] [address] Hemoglobin (Bld) [Mass/Vol] 12.1 g/dL Normal 12.0-15.0 [facility] Comment on above: Performed By: #### L [id number] ####[facility] (BE[facility])[address] [place] [address] Immature granulocytes (Bld) [#/Vol] 0.17 10*3/uL Normal 0.00-0.20 [facility] Comment on above: Performed By: #### L [id number] ####[facility] ([facility]ER)[address] [place] [address] Immature granulocytes/100 WBC (Bld) 1.8 % High 0.0-1.0 [facility] Comment on above: Performed By: #### L [id number] ####[facility] ([facility])[address] [place] [address] Lymphocytes (Bld) [#/Vol] 1.30 10*3/uL Normal 1.20-4.00 [facility] Comment on above: Performed By: #### L [id number] ####[facility] ([facility])[address] [place] [address] Lymphocytes/100 WBC (Bld) 13.4 % Low 20.0-45.0 [facility] Comment on above: Performed By: #### L [id number] ####[facility] (BEAKER)[address] [place] [address] MCH (RBC) [Entitic mass] 28.8 pg Normal 27.0-33.0 [facility] Comment on above: Performed By: #### L [id number] ####[facility] (BE[facility])[address] [place] [address] MCV (RBC) [Entitic vol] 89.0 fL Normal 82.0-98.0 [facility] Comment on above: Performed By: #### L [id number] ####[facility] ([facility])[address] [place] [address] Monocytes (Bld) [#/Vol] 0.56 10*3/uL Normal 0.10-1.00 [facility] Comment on above: Performed By: #### L [id number] ####[facility] [place] [address] Monocytes/100 WBC (Bld) 5.8 % Normal 5.0-12.0 [facility] Comment on above: Performed By: #### L [id number] ####[facility] ([facility])[address] [place] [address] Neutrophils (Bld) [#/Vol] 7.43 10*3/uL Normal 1.60-7.60 [facility] Comment on above: Performed By: #### L [id number] ####[facility] ([facility])[address] [place] [address] Neutrophils/100 WBC (Bld) 76.5 % High 40.0-72.0 [facility] Comment on above: Performed By: #### L [id number] ####[facility] ([facility])[address] [place] [address] NRBC (PER 100 WBCS) BY AUTOMATED COUNT 0.0 % Normal 0 [facility] Comment on above: Performed By: #### L [id number] ####[facility] ([facility])[address] [place] [address] PLATELETS (10*3/UL) IN BLOOD AUTOMATED COUNT 331 10*3/uL Normal 150-400 [facility] Comment on above: Performed By: #### L [id number] ####[facility] ([facility])[address] [place] [address] RBC (Bld) [#/Vol] 4.20 10*6/uL Normal 3.80-5.00 [facility] Comment on above: Performed By: #### L [id number] ####[facility] ([facility])[address] [place] [address] WBC (Bld) [#/Vol] 9.70 10*3/uL Normal 4.00-10.60 [facility] Comment on above: Performed By: #### L [id number] ####[facility] ([facility])[address] [place] [address] HEPATIC FUNCTION PANELon Albumin [Mass/Vol] 4.5 g/dL Normal 3.5-5.7 [facility] Comment on above: Performed By: #### L [id number] ####[facility] ([facility])[address] [place] [address] ALP [Catalytic activity/Vol] 87 U/L Normal 34-104 [facility] Comment on above: Performed By: #### L [id number] ####[facility] ([facility])[address] [place] [address] ALT [Catalytic activity/Vol] 29 U/L Normal 7-52 [facility] Comment on above: Performed By: #### L [id number] ####[facility] ([facility] [place] [address] AST [Catalytic activity/Vol] 24 U/L Normal 13-39 [facility] Comment on above: Performed By: #### L [id number] ####[facility] ([facility])[address] [place] [address] Bilirubin [Mass/Vol] 0.4 mg/dL Normal 0.3-1.0 [facility] Comment on above: Performed By: #### L [id number] ####[facility] ([facility] [place] [address] Magnesium [Mass/Vol] 0.0 mg/dL Normal 0-0.2 [facility] Comment on above: Performed By: #### L [id number] ####[facility] ([facility] [place] [address] Protein [Mass/Vol] 7.4 g/dL Normal 6.0-8.3 [facility] Comment on above: Performed By: #### L [id number] ####[facility] ([facility] [place] [address] Labon 05-29-2023 Lab [id number] Antonio Puri i 1975 F Date Provider Department Center 05/29/2023 2245-[facility] LAB RESOURCE [facility] Family History Problem Relation Age of Onset Fibromyalgia Mother Heart disease Father Hypertension Sister Polycystic kidney disease Sister Hypertension Brother Polycystic kidney disease Brother Family Status - Relation Status Age at Mother Father Sister Brother Normal [facility] MAGNESIUMon 05-29-2023 Magnesium [Mass/Vol] 1.7 mg/dL Low 1.9-2.7 [facility] Comment on above: Performed By: #### L [id number] #### [facility] ([facility]) [address] [place] [address] PHOSPHORUSon 05-29-2023 Magnesium [Mass/Vol] 2.8 mg/dL Normal 2.5-5.0 [facility] Comment on above: Performed By: #### L [id number] ####[facility] ([facility])[address] [place] [address] TACROLIMUS LEVELon Tacrolimus (Bld) [Mass/Vol] 5.6 ng/mL Normal 5.0-20.0 [facility] Comment on above: Result Comment: The MARC[employer]AD Tacrolimus assay is a delayed one-step immunoassay for the quantitative determination of tacrolimus in human whole blood using the chemiluminescent microparticle immunoassay (CMIA) technology with flexible assay protocols, referred to as Chemiflex. Performed By: #### L [id number] #### [facility] ([facility]) [address] [place] [address] URIC ACIDon 05-29-2023 Magnesium [Mass/Vol] 5.0 mg/dL Normal 2.3-6.6 [facility] Comment on above: Performed By: #### L [id number] ####[facility] ([facility])[address] [place] [address] BASIC METABOLIC PANELon 04-06 Anion gap [Moles/Vol] 13 mmol/L Normal 7-20 [facility] Comment on above: Performed By: #### L [id number] #### [facility] ([facility]) [address] [place] [address] Calcium [Mass/Vol] 9.5 mg/dL Normal 8.6-10.3 [facility] Comment on above: Performed By: #### L [id number] #### [facility] ([facility]) [address] [place] [address] Chloride [Moles/Vol] 104 mmol/L Normal 98-107 [facility] Comment on above: Performed By: #### L [id number] #### [facility] ([facility]) [address] [place] [address] CO2 [Moles/Vol] 22 mmol/L Normal 21-31 [facility] Comment on above: Performed By: #### L [id number] #### [facility] ([facility]) [address] [place] [address] Creatinine [Mass/Vol] 1.25 mg/dL High 0.60-1.20 [facility] Comment on above: Performed By: #### L [id number] #### [facility] ([facility]) [address] [place] [address] GLOMERULAR FILTRATION RATE ML/MIN/1.73 SQ M.PREDICTED 53.5 mL/min/1.73m*2 Low >60.0 [facility] Comment on above: Result Comment: [facility]???s estimated glomerular filtration rate (eGFR) will [...] individuals. Performed By: #### L [id number] #### [facility] ([facility]) [address] [place] [address] Glucose [Mass/Vol] 189 mg/dL High 70-100 [facility] Comment on above: Performed By: #### L [id number] #### [facility] ([facility]) [address] [place] [address] Potassium [Moles/Vol] 4.0 mmol/L Normal 3.5-5.1 [facility] Comment on above: Performed By: #### L [id number] #### [facility] ([facility]) [address] [place] [address] Sodium [Moles/Vol] 135 mmol/L Low 136-145 [facility] Comment on above: Performed By: #### L [id number] #### [facility] ([facility]) [address] [place] [address] Urea nitrogen [Mass/Vol] 19 mg/dL Normal 7-25 [facility] Comment on above: Performed By: #### L [id number] #### [facility] ([facility]) [address] [place] [address] UREA NITROGEN/CREATININE (MASS RATIO) IN SER/PLAS 15.2 Normal [facility] Comment on above: Performed By: #### L [id number] #### [facility] ([facility]) [address] [place] [address] CBC WITH AUTO DIFFERENTIALon 04-30-2023 Basophils (Bld) [#/Vol] 0.05 10*3/uL Normal 0.00-0.20 [facility] Comment on above: Performed By: #### L [id number] #### [facility] ([facility]) [address] [place] [address] Basophils/100 WBC (Bld) 0.7 % Normal 0.0-1.0 [facility] Comment on above: Performed By: #### L [id number] #### [facility] ([facility]) [address] [place] [address] Eosinophils (Bld) [#/Vol] 0.16 10*3/uL Normal 0.00-0.50 [facility] Comment on above: Performed By: #### L [id number] #### [facility] ([facility]) [address] [place] [address] Eosinophils/100 WBC (Bld) 2.1 % Normal 0.0-6.0 [facility] Comment on above: Performed By: #### L [id number] #### [facility] ([facility]) [address] [place] [address] Erythrocyte distribution width (RBC) [Ratio] 14.3 % Normal 11.5-15.0 [facility] Comment on above: Performed By: #### L [id number] #### [facility] ([facility]) [address] [place] [address] ERYTHROCYTE MEAN CORPUSCULAR HEMOGLOBIN CONCENTRATION (G/DL) BY AUTOMATED 33.1 g/dL Normal 32.0-35.0 [facility] Comment on above: Performed By: #### L [id number] #### [facility] ([facility]) [address] [place] [address] Hematocrit (Bld) [Volume fraction] 35.9 % Low 36.0-48.0 [facility] Comment on above: Performed By: #### L [id number] #### [facility] ([facility]) [address] [place] [address] Hemoglobin (Bld) [Mass/Vol] 11.9 g/dL Low 12.0-15.0 [facility] Comment on above: Performed By: #### L [id number] #### [facility] ([facility]) [address] [place] [address] Immature granulocytes (Bld) [#/Vol] 0.12 10*3/uL Normal 0.00-0.20 [facility] Comment on above: Performed By: #### L [id number] #### [facility] ([facility]) [address] [place] [address] Immature granulocytes/100 WBC (Bld) 1.6 % High 0.0-1.0 [facility] Comment on above: Performed By: #### L [id number] #### [facility] ([facility]) [address] [place] [address] Lymphocytes (Bld) [#/Vol] 1.30 10*3/uL Normal 1.20-4.00 [facility] Comment on above: Performed By: #### L [id number] #### [facility] ([facility]) [address] [place] [address] Lymphocytes/100 WBC (Bld) 16.9 % Low 20.0-45.0 [facility] Comment on above: Performed By: #### L [id number] #### [facility] ([facility]) [address] [place] [address] MCH (RBC) [Entitic mass] 29.6 pg Normal 27.0-33.0 [facility] Comment on above: Performed By: #### L [id number] #### [facility] ([facility]) [address] [place] [address] MCV (RBC) [Entitic vol] 89.3 fL Normal 82.0-98.0 [facility] Comment on above: Performed By: #### L [id number] #### [facility] ([facility]) [address] [place] [address] Monocytes (Bld) [#/Vol] 0.46 10*3/uL Normal 0.10-1.00 [facility] Comment on above: Performed By: #### L [id number] #### [facility] ([facility]) [address] [place] [address] Monocytes/100 WBC (Bld) 6.0 % Normal 5.0-12.0 [facility] Comment on above: Performed By: #### L [id number] #### [facility] ([facility]) [address] [place] [address] Neutrophils (Bld) [#/Vol] 5.58 10*3/uL Normal 1.60-7.60 [facility] Comment on above: Performed By: #### L [id number] #### [facility] ([facility]) [address] [place] [address] Neutrophils/100 WBC (Bld) 72.7 % High 40.0-72.0 [facility] Comment on above: Performed By: #### L [id number] #### [facility] ([facility]) [address] [place] [address] NRBC (PER 100 WBCS) BY AUTOMATED COUNT 0.0 % Normal 0 [facility] Comment on above: Performed By: #### L [id number] #### [facility] ([facility]) [address] [place] [address] PLATELETS (10*3/UL) IN BLOOD AUTOMATED COUNT 295 10*3/uL Normal 150-400 [facility] Comment on above: Performed By: #### L [id number] #### [facility] ([facility]) [address] [place] [address] RBC (Bld) [#/Vol] 4.02 10*6/uL Normal 3.80-5.00 [facility] Comment on above: Performed By: #### L [id number] #### [facility] ([facility]) [address] [place] [address] WBC (Bld) [#/Vol] 7.67 10*3/uL Normal 4.00-10.60 [facility] Comment on above: Performed By: #### L [id number] #### [facility] ([facility]) [address] [place] [address] HEPATIC FUNCTION PANELon Albumin [Mass/Vol] 4.6 g/dL Normal 3.5-5.7 [facility] Comment on above: Performed By: #### L [id number] ####[facility] ([facility] [place] [address] ALP [Catalytic activity/Vol] 82 U/L Normal 34-104 [facility] Comment on above: Performed By: #### L [id number] ####[facility] ([facility])[address] [place] [address] ALT [Catalytic activity/Vol] 25 U/L Normal 7-52 [facility] Comment on above: Performed By: #### L [id number] ####[facility] ([facility])[address] [place] [address] AST [Catalytic activity/Vol] 19 U/L Normal 13-39 [facility] Comment on above: Performed By: #### L [id number] ####[facility] ([facility])[address] [place] [address] Bilirubin [Mass/Vol] 0.5 mg/dL Normal 0.3-1.0 [facility] Comment on above: Performed By: #### L [id number] ####[facility] ([facility])[address] [place] [address] Magnesium [Mass/Vol] 0.1 mg/dL Normal 0-0.2 [facility] Comment on above: Performed By: #### L [id number] ####[facility] ([facility])[address] [place] [address] Protein [Mass/Vol] 7.2 g/dL Normal 6.0-8.3 [facility] Comment on above: Performed By: #### L [id number] ####[facility] ([facility])[address] [place] [address] Labon 04-30-2023 Lab [id number] Antonio Puri i 1975 F Date Provider Department Center 04/30/2023 2245-[facility] LAB RESOURCE [facility] Family History Problem Relation Age of Onset Fibromyalgia Mother Heart disease Father Hypertension Sister Polycystic kidney disease Sister Hypertension Brother Polycystic kidney disease Brother Family Status - Relation Status Age at Mother Father Sister Brother Normal [facility] MAGNESIUMon 04-30-2023 Magnesium [Mass/Vol] 1.6 mg/dL Low 1.9-2.7 [facility] Comment on above: Performed By: #### L [id number] #### [facility] ([facility]) [address] [place] [address] PANEL REACTIVE ANTIBODYon HOLD SPECIMEN Hold for add-ons. Normal [facility] Comment on above: Result Comment: Auto resulted. Performed By: #### L [id number] #### [facility] ([facility]) [address] [place] [address] PHOSPHORUSon 04-30-2023 Magnesium [Mass/Vol] 2.3 mg/dL Low 2.5-5.0 [facility] Comment on above: Performed By: #### L [id number] #### [facility] ([facility]) [address] [place] [address] SINGLE ANTIGEN CLASS Ion AB SCREEN COMMENTS No Class I donor spe cific antibody identified Normal [facility] Comment on above: Performed By: #### L [id number] #### [facility] ([facility]) [address] [place] [address] CLASS I TESTED DATE Normal [facility] Comment on above: Performed By: #### L [id number] #### [facility] ([facility]) [address] [place] [address] SIGNED BY Signed by Nelson escamilla CHT([facility]) [place]([facility]), Blending Coordinator Transplant Immunology Normal [facility] Comment on above: Result Comment: Clas s I Antigen Microbeads Performed By: #### L [id number] #### [facility] ([facility]) [address] [place] [address] SINGLE ANTIGEN CLASS 1 TEST METHOD Class I Single Antigen Normal [facility] Comment on above: Performed By: #### L [id number] #### [facility] ([facility]) [address] [place] [address] SINGLE ANTIGEN CLASS IIon AB SCREEN COMMENTS No Class II donor specific antibody identified Normal [facility] Comment on above: Performed By: #### L [id number] #### [facility] ([facility]) [address] [place] [address] CLASS II TESTED DATE [id number] Normal [facility] Comment on above: Performed By: #### L [id number] #### [facility] ([facility]) [address] [place] [address] SINGLE ANTIGEN CLASS 2 TEST METHOD Class II Single Antigen Normal [facility] Comment on above: Result Comment: Clas s II Antigen Microbeads Performed By: #### L [id number] #### [facility] ([facility]) [address] [place] [address] TACROLIMUS LEVELon Tacrolimus (Bld) [Mass/Vol] 9.3 ng/mL Normal 5.0-20.0 [facility] Comment on above: Result Comment: The [employer] Tacrolimus assay is a delayed one-step immunoassay for the quantitative determination of tacrolimus in human whole blood using the chemiluminescent microparticle immunoassay (CMIA) technology with flexible assay protocols, referred to as Chemiflex. Performed By: #### L [id number] ####[facility] ([facility])[address] [place] [address] URIC ACIDon 04-30-2023 Magnesium [Mass/Vol] 4.9 mg/dL Normal 2.3-6.6 [facility] Comment on above: Performed By: #### L [id number] #### [facility] ([facility]) [address] [place] [address] Follow-Upon 04-16-2023 Follow-Up [id number] Antonio Puri i 1975 F Date Provider Department Center 04/16/2023 [id number], SUJIT TXP None Family History Problem Relation Age of Onset Fibromyalgia Mother Heart disease Father Hypertension Sister Polycystic kidney disease Sister Hypertension Brother Polycystic kidney disease Brother Family Status - Relation Status Age at Mother Father Sister Brother Level of Service:05683 NC OFFICE/OUTPATIENT ESTABLISHED MOD MDM 30-39 MIN Reason for Visit and Comments: Kidney Follow-up [] - Patient has concerns of feeling worse, increased urinating, issues with the prednisone, angry Normal [facility] BASIC METABOLIC PANELon 06-2 Anion gap [Moles/Vol] 14 mmol/L Normal 7-20 [facility] Comment on above: Performed By: #### L [id number] #### [facility] ([facility]) [address] [place] [place] [address] Calcium [Mass/Vol] 9.4 mg/dL Normal 8.6-10.3 [facility] Comment on above: Performed By: #### L [id number] #### [facility] ([facility]) [address] [place] [address] Chloride [Moles/Vol] 104 mmol/L Normal 98-107 [facility] Comment on above: Performed By: #### L [id number] #### [facility] ([facility]) [address] [place] [address] CO2 [Moles/Vol] 24 mmol/L Normal 21-31 [facility] Comment on above: Performed By: #### L [id number] #### [facility] ([facility]) [address] [place] [address] Creatinine [Mass/Vol] 1.26 mg/dL High 0.60-1.20 [facility] Comment on above: Performed By: #### L [id number] #### [facility] ([facility]) [address] [place] [address] GLOMERULAR FILTRATION RATE ML/MIN/1.73 SQ M.PREDICTED 53.0 mL/min/1.73m*2 Low >60.0 [facility] Comment on above: Result Comment: [facility]???s estimated glomerular filtration rate (eGFR) will [...] individuals. Performed By: #### L [id number] #### [facility] ([facility]) [address] [place] [address] Glucose [Mass/Vol] 155 mg/dL High 70-100 [facility] Comment on above: Performed By: #### L [id number] #### [facility] ([facility]) [address] [place] [address] Potassium [Moles/Vol] 3.6 mmol/L Normal 3.5-5.1 [facility] Comment on above: Performed By: #### L [id number] #### [facility] ([facility]) [address] [place] [address] Sodium [Moles/Vol] 138 mmol/L Normal 136-145 [facility] Comment on above: Performed By: #### L [id number] #### [facility] ([facility]) [address] [place] [address] Urea nitrogen [Mass/Vol] 19 mg/dL Normal 7-25 [facility] Comment on above: Performed By: #### L [id number] #### [facility] ([facility]) [address] [place] [address] UREA NITROGEN/CREATININE (MASS RATIO) IN SER/PLAS 15.1 Normal [facility] Comment on above: Performed By: #### L [id number] #### [facility] ([facility]) [address] [place] [address] CBC WITH AUTO DIFFERENTIALon 03-31-2023 Basophils (Bld) [#/Vol] 0.07 10*3/uL Normal 0.00-0.20 [facility] Comment on above: Performed By: #### L [id number] ####[facility] ([facility])[address] [place] [address] Basophils/100 WBC (Bld) 0.9 % Normal 0.0-1.0 [facility] Comment on above: Performed By: #### L [id number] ####[facility] ([facility])[address] [place] [address] Eosinophils (Bld) [#/Vol] 0.22 10*3/uL Normal 0.00-0.50 [facility] Comment on above: Performed By: #### L [id number] ####[facility] ([facility] [place] [address] Eosinophils/100 WBC (Bld) 2.9 % Normal 0.0-6.0 [facility] Comment on above: Performed By: #### L [id number] ####[facility] ([facility] [place] [address] Erythrocyte distribution width (RBC) [Ratio] 14.0 % Normal 11.5-15.0 [facility] Comment on above: Performed By: #### L [id number] ####[facility] ([facility])[address] [place] [address] ERYTHROCYTE MEAN CORPUSCULAR HEMOGLOBIN CONCENTRATION (G/DL) BY AUTOMATED 32.1 g/dL Normal 32.0-35.0 [facility] Comment on above: Performed By: #### L [id number] ####[facility] ([facility])[address] [place] [address] Hematocrit (Bld) [Volume fraction] 36.5 % Normal 36.0-48.0 [facility] Comment on above: Performed By: #### L [id number] ####[facility] ([facility])[address] [place] [address] Hemoglobin (Bld) [Mass/Vol] 11.7 g/dL Low 12.0-15.0 [facility] Comment on above: Performed By: #### L [id number] ####[facility] ([facility])[address] [place] [address] Immature granulocytes (Bld) [#/Vol] 0.19 10*3/uL Normal 0.00-0.20 [facility] Comment on above: Performed By: #### L [id number] ####[facility] ([facility])[address] [place] [address] Immature granulocytes/100 WBC (Bld) 2.5 % High 0.0-1.0 [facility] Comment on above: Performed By: #### L [id number] ####[facility] ([facility])[address] [place] [address] Lymphocytes (Bld) [#/Vol] 1.44 10*3/uL Normal 1.20-4.00 [facility] Comment on above: Performed By: #### L [id number] ####[facility] ([facility])[address] [place] [address] Lymphocytes/100 WBC (Bld) 19.0 % Low 20.0-45.0 [facility] Comment on above: Performed By: #### L [id number] ####[facility] [place] [address] MCH (RBC) [Entitic mass] 29.5 pg Normal 27.0-33.0 [facility] Comment on above: Performed By: #### L [id number] ####[facility] ([facility])[address] [place] [address] MCV (RBC) [Entitic vol] 91.9 fL Normal 82.0-98.0 [facility] Comment on above: Performed By: #### L [id number] ####[facility] ([facility])[address] [place] [address] Monocytes (Bld) [#/Vol] 0.54 10*3/uL Normal 0.10-1.00 [facility] Comment on above: Performed By: #### L [id number] ####[facility] ([facility])[address] [place] [address] Monocytes/100 WBC (Bld) 7.1 % Normal 5.0-12.0 [facility] Comment on above: Performed By: #### L [id number] ####[facility] ([facility] [place] [address] Neutrophils (Bld) [#/Vol] 5.12 10*3/uL Normal 1.60-7.60 [facility] Comment on above: Performed By: #### L [id number] ####[facility] ([facility])[address] [place] [address] Neutrophils/100 WBC (Bld) 67.6 % Normal 40.0-72.0 [facility] Comment on above: Performed By: #### L [id number] ####[facility] [facility] ([facility])[address] [place] [address] NRBC (PER 100 WBCS) BY AUTOMATED COUNT 0.0 % Normal 0 [facility] Comment on above: Performed By: #### L [id number] ####[facility] ([facility])[address] [place] [address] PLATELETS (10*3/UL) IN BLOOD AUTOMATED COUNT 274 10*3/uL Normal 150-400 [facility] Comment on above: Performed By: #### L [id number] ####[facility] ([facility])[address] [place] [address] RBC (Bld) [#/Vol] 3.97 10*6/uL Normal 3.80-5.00 [facility] Comment on above: Performed By: #### L [id number] ####[facility] ([facility])[address] [place] [address] WBC (Bld) [#/Vol] 7.58 10*3/uL Normal 4.00-10.60 [facility] Comment on above: Performed By: #### L [id number] ####[facility] ([facility] [place] [address] HEPATIC FUNCTION PANELon 06- 26-2023 Albumin [Mass/Vol] 4.4 g/dL Normal 3.5-5.7 [facility] Comment on above: Performed By: #### L [id number] ####[facility] ([facility])[address] [place] [address] ALP [Catalytic activity/Vol] 80 U/L Normal 34-104 [facility] Comment on above: Performed By: #### L [id number] ####[facility] ([facility])[address] [place] [address] ALT [Catalytic activity/Vol] 19 U/L Normal 7-52 [facility] Comment on above: Performed By: #### L [id number] ####[facility] ([facility])[address] [place] [address] AST [Catalytic activity/Vol] 17 U/L Normal 13-39 [facility] Comment on above: Performed By: #### L [id number] ####[facility] ([facility])[address] [place] [address] Bilirubin [Mass/Vol] 0.4 mg/dL Normal 0.3-1.0 [facility] Comment on above: Performed By: #### L [id number] ####[facility] ([facility])[address] [place] [address] Magnesium [Mass/Vol] 0.1 mg/dL Normal 0-0.2 [facility] Comment on above: Performed By: #### L [id number] ####[facility] ([facility])[address] [place] [address] Protein [Mass/Vol] 7.4 g/dL Normal 6.0-8.3 [facility] Comment on above: Performed By: #### L [id number] ####[facility] ([facility] [place] [address] LIPID PANELon 03-31-2023 CHOL/HDL 4.9 mg/dL Normal [facility] Comment on above: Performed By: #### L [id number] ####[facility] ([facility])[address] [place] [address] Cholesterol [Mass/Vol] 240 mg/dL High 120-200 Un [facility] Comment on above: Performed By: #### L [id number] ####[facility] ([facility])[address] [place] [address] Magnesium [Mass/Vol] 274 mg/dL High 40-149 [facility] Comment on above: Result Comment: TRIG LYCERIDE REFERENCE RANGE: 20 YEARS AND OLDER CARDIOVASCULAR RISK LESS THAN 150 mg/dL LOW RISK 150 TO 199 mg/dL BORDERLINE RISK 200 mg/dL AND GREATER HIGH RISK Performed By: #### L [id number] ####[facility] ([facility])[address] [place] [address] Magnesium [Mass/Vol] 136 mg/dL Normal 0-160 [facility] Comment on above: Performed By: #### L [id number] ####[facility] ([facility])[address] [facility] [place] [address] Magnesium [Mass/Vol] 49 mg/dL Normal 23-92 [facility] Comment on above: Performed By: #### L [id number] ####[facility] ([facility])[address] [place] [address] NON HDL CHOL. (LDL+VLDL) 191 Normal [facility] Comment on above: Performed By: #### L [id number] ####[facility] ([facility])[address] [place] [address] TOTAL VLDL-C 55 mg/dL High 0-40 [facility] Comment on above: Performed By: #### L [id number] ####[facility] ([facility])[address] [place] [address] Labon 03-31-2023 Lab [id number] Antonio Puri i 1975 F Date Provider Department Center 03/31/2023 2245-[facility] LAB RESOURCE [facility] [place] [facility] Family History Problem Relation Age of Onset Fibromyalgia Mother Heart disease Father Hypertension Sister Polycystic kidney disease Sister Hypertension Brother Polycystic kidney disease Brother Family Status - Relation Status Age at Mother Father Sister Brother Normal [facility] MAGNESIUMon 03-31-2023 Magnesium [Mass/Vol] 1.5 mg/dL Low 1.9-2.7 [facility] Comment on above: Performed By: #### L [id number] #### [facility] ([facility]) [address] [place] [address] PANEL REACTIVE ANTIBODYon HOLD SPECIMEN Hold for add-ons. Normal [facility] Comment on above: Result Comment: Auto resulted. Performed By: #### L [id number] #### [facility] TISSUE TYPING (HISTOTRAC) [address] [place] [address] [place] PHOSPHORUSon 03-31-2023 Magnesium [Mass/Vol] 2.6 mg/dL Normal 2.5-5.0 [facility] Comment on above: Performed By: #### L [id number] #### [facility] ([facility]) [address] [place] [address] SINGLE ANTIGEN CLASS Ion AB SCREEN COMMENTS No Class I donor spe cific antibody identified [facility] Comment on above: Performed By: #### L [id number] ####[facility] TISSUE TYPING (HISTOTRAC)[address] [place] [address] [facility] CLASS I TESTED DATE [id number] Normal [facility] Comment on above: Performed By: #### L [id number] ####[facility] TISSUE TYPING (HISTOTRAC)[address] [place] [address] [facility] SINGLE ANTIGEN CLASS 1 TEST METHOD Class I Single Antigen Normal [facility] Comment on above: Performed By: #### L [id number] ####[facility] TISSUE TYPING (HISTOTRAC)[address] [place] [address] [facility] SINGLE ANTIGEN CLASS IIon AB SCREEN COMMENTS No Class II donor specific antibody identified Normal [facility] Comment on above: Performed By: #### L [id number] ####[facility] TISSUE TYPING (HISTOTRAC)[address] [place] [address] CLASS II TESTED DATE [id number] [facility] Comment on above: Performed By: #### L [id number] ####[facility] TISSUE TYPING (HISTOTRAC)[address] [place] [address] SIGNED BY Signed by Nelson escamilla CHT([facility]) PARKER(ASCP), Blending Coordinator Transplant Immunology [facility] Comment on above: Performed By: #### L [id number] ####[facility] TISSUE TYPING (HISTOTRAC)[address] [place] [address] Result Comment: Clas s I Antigen Microbeads Performed By: #### L [id number] ####[facility] TISSUE TYPING (HISTOTRAC)[address] [place] [address] SINGLE ANTIGEN CLASS 2 TEST METHOD Class II Single Antigen Normal [facility] Comment on above: Result Comment: Clas s II Antigen Microbeads Performed By: #### L [id number] ####[facility] TISSUE TYPING (HISTOTRAC)[address] [place] [address] TACROLIMUS LEVELon Tacrolimus (Bld) [Mass/Vol] 6.2 ng/mL Normal 5.0-20.0 [facility] Comment on above: Result Comment: The [employer] Tacrolimus assay is a delayed one-step immunoassay for the quantitative determination of tacrolimus in human whole blood using the chemiluminescent microparticle immunoassay (CMIA) technology with flexible assay protocols, referred to as Chemiflex. Performed By: #### L [id number] #### [facility] ([facility]) [address] [place] [address] URIC ACIDon 03-31-2023 Magnesium [Mass/Vol] 5.3 mg/dL Normal 2.3-6.6 [facility] Comment on above: Performed By: #### L [id number] #### [facility] ([facility]) [address] [place] [address] PTH INTACTon 07-30-2022 PTH, Intact 107 pg/mL Critically high 15-65 [facility] Comment on above: Performed By: #### M G, URIC, RENAL #### [facility] [address] [place] [address] Dr. Hari Palmer FERRITINon 07-29-2022 Ferritin [Mass/Vol] 194.0 ng/mL Critically high 6.2-137.0 [facility] Comment on above: Performed By: #### M G, URIC, RENAL #### [facility] [address] [place] [address] Dr. Hari Palmer HEMOGRAM AND PLATELon 2021 Hematocrit (Bld) [Volume fraction] 32.8 % Critically low 36.0-48.0 [facility] Comment on above: Performed By: #### M G, URIC, RENAL #### [facility] [address] [place] [address] Dr. Hari Palmer Hemoglobin (Bld) [Mass/Vol] 10.8 g/dL Critically low 12.0-16.0 [facility] Comment on above: Performed By: #### M G, URIC, RENAL #### [facility] [address] [place] [address] Dr. Hari Palmer MCH (RBC) [Entitic mass] 31.7 pg Normal 26.7-34.0 [facility] Comment on above: Performed By: #### M G, URIC, RENAL #### [facility] [address] [place] [address] Dr. Hari Palmer MCHC (RBC) [Mass/Vol] 32.9 g/dL Normal 29.9-35.2 [facility] Comment on above: Performed By: #### M G, URIC, RENAL #### [facility] [address] [place] [address] Dr. Hari Palmer MCV (RBC) [Entitic vol] 96.2 fL Normal 81.0-99.0 [facility] Comment on above: Performed By: #### M G, URIC, RENAL #### [facility] [address] [place] [address] Dr. Hari Palmer PLT 297 103/ul Normal 150-450 [facility] Comment on above: Performed By: #### M G, URIC, RENAL #### [facility] [address] [address] [address] Hari Palmer RBC 3.41 106/ul Critically low 4.20-5.40 [facility] Comment on above: Performed By: #### M G, URIC, RENAL #### [facility] [address] [address] [address] Hari Palmer WBC 7.1 103/ul Normal 4.0-11.0 [facility] Comment on above: Performed By: #### M G, URIC, RENAL #### [facility] [address] [place] [address] Dr. Hari Palmer IRON AND TIBCon 07-29-2022 % SATURATION 19.0 % Normal [facility] Comment on above: Performed By: #### M G, URIC, RENAL #### [facility] [address] [place] [address] Dr. Hari Palmer Iron [Mass/Vol] 48.0 ug/dL Critically low 50.0-170.0 [facility] Comment on above: Performed By: #### M G, URIC, RENAL #### [facility] [address] [place] [address] Dr. Hari Palmer TIBC DIRECT 252.0 ug/dL Normal 250.0-450.0 [facility] Comment on above: Performed By: #### M G, URIC, RENAL #### [facility] [address] [place] [address] Dr. Hari Palmer MAGNESIUMon 07-29-2022 Magnesium [Mass/Vol] 2.0 mg/dL Normal 1.8-2.4 [facility] Comment on above: Performed By: #### M G, URIC, RENAL #### [facility] [address] [place] [address] Dr. Hari Palmer RENAL FUNCTION PANELon 07-29 Albumin [Mass/Vol] 3.6 g/dL Normal 3.4-5.0 [facility] Comment on above: Performed By: #### M G, URIC, RENAL #### [facility] [address] [place] [address] Dr. Hari Palmer Calcium [Mass/Vol] 8.7 mg/dL Normal 8.5-10.1 [facility] Comment on above: Performed By: #### M G, URIC, RENAL #### [facility] [address] [place] [address] Dr. Hari Palmer Chloride [Moles/Vol] 104 mmol/L Normal 98-107 [facility] Comment on above: Performed By: #### M G, URIC, RENAL #### [facility] [address] [place] [address] Dr. Hari Palmer CO2 [Moles/Vol] 21.8 mmol/L Normal 21.0-32.0 [facility] Comment on above: Performed By: #### M G, URIC, RENAL #### [facility] [address] [place] [address] Dr. Hari Palmer Creatinine [Mass/Vol] 3.83 mg/dL Critically high 0.55-1.02 [facility] Comment on above: Performed By: #### M G, URIC, RENAL #### [facility] [address] [place] [address] Dr. Hari Palmer EGFR-AF TRISTANIAN 15 mL/min/1.73m2 Critically low >=60 [facility] Comment on above: Performed By: #### M G, URIC, RENAL #### [facility] [address] [place] [address] Dr. Hari Palmer EGFR-NON AF TRISTANIAN 13 mL/min/1.73m2 Critically low >=60 [facility] Comment on above: Performed By: #### M G, URIC, RENAL #### [facility] [address] [place] [address] Dr. Hari Palmer Glucose [Mass/Vol] 108 mg/dL Critically high 74-106 T [facility] Comment on above: Performed By: #### M G, URIC, RENAL #### [facility] [address] [place] [address] Dr. Hari Palmer Phosphate [Mass/Vol] 5.4 mg/dL Critically high 2.6-4.7 [facility] Comment on above: Performed By: #### M G, URIC, RENAL #### [facility] [address] [place] [address] Dr. Hari Palmer Potassium [Moles/Vol] 3.9 mmol/L Normal 3.5-5.1 [facility] Comment on above: Performed By: #### M G, URIC, RENAL #### [facility] [address] [place] [address] Dr. Hari Palmer Sodium [Moles/Vol] 137 mmol/L Normal 136-145 [facility] Comment on above: Performed By: #### M G, URIC, RENAL #### [facility] [address] [place] [address] Dr. Hari Palmer Urea nitrogen [Mass/Vol] 47.0 mg/dL Critically high 7.0-18.0 [facility] Comment on above: Performed By: #### M G, URIC, RENAL #### [facility] [address] [place] [address] Dr. Hari Palmer URIC ACID SERUMon 07-29-2022 Urate [Mass/Vol] 6.3 mg/dL Critically high 2.6-6.0 [facility] Comment on above: Performed By: #### M G, URIC, RENAL #### [facility] [address] [place] [address] Dr. Hari Palmer URINE T PROTEIN CREAT RATIOo n 07-29-2022 Protein (U) [Mass/Vol] 29.7 mg/dL Critically high <=12.0 [facility] Comment on above: Performed By: #### M G, URIC, RENAL #### [facility] [address] [place] [address] Dr. Hari Palmer UR PROT CREAT RAT 0.56 Normal [facility] Comment on above: Performed By: #### M G, URIC, RENAL #### [facility] [address] [place] [address] Dr. Hari Palmer URINE CREAT 53.35 mg/dL Normal 20.00-300.00 [facility] Comment on above: Performed By: #### M G, URIC, RENAL #### [facility] [address] [place] [address] Dr. Hari Palmer VITAMIN D 25 OHon 07-29-2022 VIT D 25-OH 38.8 ng/mL Normal [facility] Comment on above: Performed By: #### M G, URIC, RENAL #### [facility] [id number] Hari Palmer VIT D RANGES SEE BELOW Normal [facility] Comment on above: Result Comment: <20 ng/mL Vit D deficient 20 - <30 ng/mL Vit D insufficient 30 - 100 ng/mL Vit D sufficient >100 ng/mL Potential Toxicity Performed By: #### M G, URIC, RENAL #### [facility] [id number] Hari Palmer Albumin [Mass/volume] in Ser um or PlasmaOrdered By: Stanley Forman on 06-20-2022 Albumin [Mass/Vol] 3.9 g/dL 3.2-5.5 [facility] Basophils Auto (Bld) [#/Vol] Ordered By: Stanley Forman on 06-20-2022 Basophils (Bld) [#/Vol] 0.1 10*3/uL 0.0-0.2 [facility] Basophils/100 WBC Auto (Bld) Ordered By: Stanley Forman on 06-20-2022 Basophils/100 WBC (Bld) 0.7 % . [facility] Blood hemoglobin measurement (mass/volume)Ordered By: Stanley Forman on 06-20-2022 Hemoglobin (Bld) [Mass/Vol] 10.8 g/dL 11.8-15.4 [facility] Blood leukocytes automated c ount (number/volume)Ordered By: Stanley Forman on 06-20-2022 WBC (Bld) [#/Vol] 11.8 10*3/uL 4.5-11.0 [facility] C reactive protein [Mass/vol ume] in Serum or PlasmaOrdered By: Stanley Forman on 06-20-2022 CRP [Mass/Vol] 5.2 mg/dL 0.0-1.0 [facility] Creatinine and Glomerular fi ltration rate.predicted panel (S/P/Bld)Ordered By: Stanley Forman on 06-20-2022 Creatinine [Mass/Vol] 4.49 mg/dL 0.44-1.03 [facility] Eosinophils Auto (Bld) [#/Vo l]Ordered By: Stanley Forman on 06-20-2022 Eosinophils (Bld) [#/Vol] 0.4 10*3/uL 0.0-0.45 [facility] Eosinophils/100 WBC Auto (Bl d)Ordered By: Stanley Forman on 06-20-2022 Eosinophils/100 WBC (Bld) 3.2 % . [facility] Erythrocyte distribution wid th Auto (RBC) [Ratio]Ordered By: Stanley Forman on 06-20-2022 Erythrocyte distribution width (RBC) [Ratio] 14.0 % 11.9-15.3 [facility] Erythrocyte sedimentation ra te by Photometric methodOrdered By: Stanley Forman on 06-20-2022 ESR Photometric method (d) [Velocity] 67 mm/hr 0-19 [facility] Estimated glomerular filtrat ion rate (GFR) non- AmericanOrdered By: Stanley Forman on 06-20-2022 GFR/1.73 sq M.predicted among non-blacks MDRD (S/P/Bld) [Vol rate/Area] 11 mL/Min [facility] Globulin Calc (S) [Mass/Vol] Ordered By: Stanley Forman on 06-20-2022 Globulin (S) [Mass/Vol] 3.5 g/dL [facility] Hematocrit Auto (Bld) [Volum e fraction]Ordered By: Stanley Forman on 06-20-2022 Hematocrit (Bld) [Volume fraction] 33.1 % 34.0-46.4 [facility] Laboratory - Hematology and Cell countsOrdered By: Stanley Forman on 06-20-2022 Nucleated RBC/100 WBC (Bld) [Ratio] 0.0 % 0-0.5 [facility] Lymphocytes Auto (Bld) [#/Vo l]Ordered By: Stanley Forman on 06-20-2022 Lymphocytes (Bld) [#/Vol] 1.5 10*3/uL 1.00-4.8 [facility] Lymphocytes/100 WBC Auto (Bl d)Ordered By: Stanley Forman on 06-20-2022 Lymphocytes/100 WBC (Bld) 12.3 % . [facility] MCH Auto (RBC) [Entitic mass ]Ordered By: Stanley Forman on 06-20-2022 MCH (RBC) [Entitic mass] 31.1 pg 24.7-34.3 [facility] MCHC Auto (RBC) [Mass/Vol]Or dered By: Stanley Forman on 06-20-2022 MCHC (RBC) [Mass/Vol] 32.5 g/dL 32.0-35.0 [facility] MCV Auto (RBC) [Entitic vol] Ordered By: Stanley Forman on 06-20-2022 MCV (RBC) [Entitic vol] 95.6 fL 80-100 [facility] Monocytes Auto (Bld) [#/Vol] Ordered By: Stanley Forman on 06-20-2022 Monocytes (Bld) [#/Vol] 0.5 10*3/uL 0.0-0.8 [facility] Monocytes/100 WBC Auto (Bld) Ordered By: Stanley Forman on 06-20-2022 Monocytes/100 WBC (Bld) 4.1 % . [facility] Neutrophils Auto (Bld) [#/Vo l]Ordered By: Stanley Forman on 06-20-2022 Neutrophils (Bld) [#/Vol] 9.4 10*3/uL 1.8-7.7 [facility] Neutrophils/100 WBC Auto (Bl d)Ordered By: Stanley Forman on 06-20-2022 Neutrophils/100 WBC (Bld) 79.7 % . [facility] No Panel InformationOrdered By: Stanley Forman on 06-20-2022 Estimated GFR () 13 mL/Min [facility] Comment on above: GFR estimated refere nce range: According to KDOQI guidelines, <60 ml/min/1.73m2 is sufficient to diagnose a patient with chronic kidney disease. Pharmacy Creatinine Clearance (Chem 16.48 [facility] Platelet mean volume Auto (B ld) [Entitic vol]Ordered By: Stanley Forman on 06-20-2022 Platelet mean volume (Bld) [Entitic vol] 7.0 fL 6.3-10.7 [facility] Platelets Auto (Bld) [#/Vol] Ordered By: Stanley Forman on 06-20-2022 Platelets (Bld) [#/Vol] 287 10*3/uL 150-450 [facility] Protein [Mass/volume] in Ser um or PlasmaOrdered By: Stanley Forman on 06-20-2022 Protein [Mass/Vol] 7.4 g/dL 6.1-7.9 [facility] RBC Auto (Bld) [#/Vol]Ordere d By: Stanley Forman on 06-20-2022 RBC (Bld) [#/Vol] 3.46 10*6/uL 3.60-5.00 [facility] Serum or plasma alanine cesar otransferase measurement without P-5'-P (enzymatic activiOrdered By: Stanley Forman on 06-20-2022 ALT No additional P-5'-P [Catalytic activity/Vol] 11 U/L 10-60 [facility] Serum or plasma albumin/glob ulin mass ratioOrdered By: Stanley Forman on 06-20-2022 Albumin/Globulin [Mass ratio] 1.1 {ratio} [facility] Serum or plasma alkaline gina sphatase measurement (enzymatic activity/volume)Ordered By: Stanley Forman on 06-20-2022 ALP [Catalytic activity/Vol] 82 U/L 32-92 [facility] Serum or plasma anion gap de terminationOrdered By: Stanley Forman on 06-20-2022 Anion gap [Moles/Vol] 16.2 mmol/L 6.0-15.0 [facility] Serum or plasma aspartate am inotransferase measurement (enzymatic activity/volume)Ordered By: Stanley Forman on 06-20-2022 AST [Catalytic activity/Vol] 15 U/L 10-42 [facility] Serum or plasma calcium ge urement (mass/volume)Ordered By: Stanley Forman on 06-20-2022 Calcium [Mass/Vol] 9.3 mg/dL 8.2-10.2 [facility] Serum or plasma chloride lee surement (moles/volume)Ordered By: Stanley Forman on 06-20-2022 Chloride [Moles/Vol] 103 mmol/L 95-114 [facility] Serum or plasma glucose ge urement (mass/volume)Ordered By: Stanley Forman on 06-20-2022 Glucose [Mass/Vol] 75 mg/dL 70-100 [facility] Comment on above: ADA recommended refe rence rangeRandom Glucose Reference Range is dependent on time and content of last meal. Glucose of more than 200 mg/dL in a nonstressed, ambulatory subject supports the diagnosis of Diabetes Mellitus. Serum or plasma potassium me asurement (moles/volume)Ordered By: Stanley Forman on 06-20-2022 Potassium [Moles/Vol] 4.3 mmol/L 3.5-5.1 [facility] Serum or plasma sodium measu rement (moles/volume)Ordered By: Stanley Forman on 06-20-2022 Sodium [Moles/Vol] 135 mmol/L 136-146 [facility] Serum or plasma total biliru bin measurement (mass/volume)Ordered By: Stanley Forman on 06-20-2022 Bilirubin [Mass/Vol] 0.3 mg/dL 0.3-1.2 [facility] Serum or plasma total carbon dioxide measurement (moles/volume)Ordered By: Stanley Forman on 06-20-2022 CO2 [Moles/Vol] 20.1 mmol/L 22.0-30.0 [facility] Serum or plasma urea nitroge n measurement (mass/volume)Ordered By: Stanley Forman on 06-20-2022 Urea nitrogen [Mass/Vol] 42 mg/dL 9-23 [facility] COVID-19 Positive/NegativeOr dered By: Jesus Parham on 06-14-2022 SARS-CoV-2 (COVID-19) N gene AMBERLY+probe Ql (Resp) Negative Negative [facility] Comment on above: Testing for SARS-CoV -2 by RT-PCR This test was developed and its performance characteristics determined by [employer] ([employer]) and validated at the [facility]. This test has not been FDA [...] and its performance characteristics determined by [employer] ([employer]) and validated at the [facility]. This test has not been FDA [...] (CA) 125 10.8 U/mL Normal 0.0-38.1 [facility] Comment on above: Result Comment: [employer] Electrochemiluminescence Immunoassay (ECLIA) . Values obtained with different assay methods or kits cannot be used interchangeably. Results cannot be interpreted as absolute evidence of the presence or absence of malignant disease. Performed By: #### M G, URIC, RENAL #### [facility] [address] [place] [address] Dr. Hari Palmer CEAon 06-08-2022 CEA 0.9 ng/mL Normal 0.0-4.7 [facility] Comment on above: Result Comment: Nons mokers <3.9 Smokers <5.6 . [employer] Electrochemiluminescence Immunoassay (ECLIA) . Values obtained with different assay methods or kits cannot be used interchangeably. Results cannot be interpreted as absolute evidence of the presence or absence of malignant disease. Performed By: #### C EA. #### [facility] [address] [place] [address] Dr. Hari Palmer Basophils Auto (Bld) [#/Vol] Ordered By: Jesus Parham on 06-05-2022 Basophils (Bld) [#/Vol] 0.0 10*3/uL 0.0-0.2 [facility] Basophils/100 WBC Auto (Bld) Ordered By: Jesus Parham on 06-05-2022 Basophils/100 WBC (Bld) 0.3 % . [facility] Blood hemoglobin measurement (mass/volume)Ordered By: Jesus aPrham on 06-05-2022 Hemoglobin (Bld) [Mass/Vol] 12.0 g/dL 11.8-15.4 [facility] Blood leukocytes automated c ount (number/volume)Ordered By: Jesus Parham on 06-05-2022 WBC (Bld) [#/Vol] 8.5 10*3/uL 4.5-11.0 [facility] Creatinine and Glomerular fi ltration rate.predicted panel (S/P/Bld)Ordered By: Jesus Parham on 06-05-2022 Creatinine [Mass/Vol] 3.52 mg/dL 0.44-1.03 [facility] Eosinophils Auto (Bld) [#/Vo l]Ordered By: Jesus Parham on 06-05-2022 Eosinophils (Bld) [#/Vol] 0.2 10*3/uL 0.0-0.45 [facility] Eosinophils/100 WBC Auto (Bl d)Ordered By: Jesus Parham on 06-05-2022 Eosinophils/100 WBC (Bld) 2.7 % . [facility] Erythrocyte distribution wid th Auto (RBC) [Ratio]Ordered By: Jesus Parham on 06-05-2022 Erythrocyte distribution width (RBC) [Ratio] 14.2 % 11.9-15.3 [facility] Estimated glomerular filtrat ion rate (GFR) non- AmericanOrdered By: Jesus Parham on 08-31-2022 GFR/1.73 sq M.predicted among non-blacks MDRD (S/P/Bld) [Vol rate/Area] 14 mL/Min [facility] Hematocrit Auto (Bld) [Volum e fraction]Ordered By: Jesus Parham on 06-05-2022 Hematocrit (Bld) [Volume fraction] 35.8 % 34.0-46.4 [facility] Laboratory - Hematology and Cell countsOrdered By: Jesus Parham on 06-05-2022 Nucleated RBC/100 WBC (Bld) [Ratio] 0.1 % 0-0.5 [facility] Lymphocytes Auto (Bld) [#/Vo l]Ordered By: Jesus Parham on 06-05-2022 Lymphocytes (Bld) [#/Vol] 1.6 10*3/uL 1.00-4.8 [facility] Lymphocytes/100 WBC Auto (Bl d)Ordered By: Jesus Parham on 06-05-2022 Lymphocytes/100 WBC (Bld) 19.3 % . [facility] MCH Auto (RBC) [Entitic mass ]Ordered By: Jesus Parham on 06-05-2022 MCH (RBC) [Entitic mass] 31.5 pg 24.7-34.3 [facility] MCHC Auto (RBC) [Mass/Vol]Or dered By: Jesus Parham on 06-05-2022 MCHC (RBC) [Mass/Vol] 33.3 g/dL 32.0-35.0 [facility] MCV Auto (RBC) [Entitic vol] Ordered By: Jesus Parham on 06-05-2022 MCV (RBC) [Entitic vol] 94.4 fL 80-100 [facility] Monocytes Auto (Bld) [#/Vol] Ordered By: Jesus Parham on 06-05-2022 Monocytes (Bld) [#/Vol] 0.3 10*3/uL 0.0-0.8 [facility] Monocytes/100 WBC Auto (Bld) Ordered By: Jesus Parham on 06-05-2022 Monocytes/100 WBC (Bld) 3.9 % . [facility] Neutrophils Auto (Bld) [#/Vo l]Ordered By: Jesus Parham on 06-05-2022 Neutrophils (Bld) [#/Vol] 6.2 10*3/uL 1.8-7.7 [facility] Neutrophils/100 WBC Auto (Bl d)Ordered By: Jeuss Parham on 06-05-2022 Neutrophils/100 WBC (Bld) 73.8 % . [facility] No Panel InformationOrdered By: Jesus Parham on 06-05-2022 Estimated GFR () 17 mL/Min [facility] Comment on above: GFR estimated refere nce range: According to KDOQI guidelines, <60 ml/min/1.73m2 is sufficient to diagnose a patient with chronic kidney disease. Pharmacy Creatinine Clearance (Chem N/A [facility] Platelet mean volume Auto (B ld) [Entitic vol]Ordered By: Jesus Parham on 06-05-2022 Platelet mean volume (Bld) [Entitic vol] 7.3 fL 6.3-10.7 [facility] Platelets Auto (Bld) [#/Vol] Ordered By: Jesus Parham on 06-05-2022 Platelets (Bld) [#/Vol] 312 10*3/uL 150-450 [facility] RBC Auto (Bld) [#/Vol]Ordere d By: Jesus aPrham on 06-05-2022 RBC (Bld) [#/Vol] 3.80 10*6/uL 3.60-5.00 [facility] Serum or plasma anion gap de terminationOrdered By: Jesus Parham on 06-05-2022 Anion gap [Moles/Vol] 15.1 mmol/L 6.0-15.0 [facility] Serum or plasma calcium ge urement (mass/volume)Ordered By: Jesus Parham on 06-05-2022 Calcium [Mass/Vol] 9.5 mg/dL 8.2-10.2 [facility] Serum or plasma chloride lee surement (moles/volume)Ordered By: Jesus Parham on 06-05-2022 Chloride [Moles/Vol] 106 mmol/L 95-114 [facility] Serum or plasma glucose ge urement (mass/volume)Ordered By: Jesus Parham on 06-05-2022 Glucose [Mass/Vol] 91 mg/dL 70-100 [facility] Comment on above: ADA recommended [...] on 06-05-2022 Potassium [Moles/Vol] 4.4 mmol/L 3.5-5.1 [facility] Serum or plasma sodium measu rement (moles/volume)Ordered By: Jesus Parham on 06-05-2022 Sodium [Moles/Vol] 137 mmol/L 136-146 [facility] Serum or plasma total carbon dioxide measurement (moles/volume)Ordered By: Jesus Parham on 06-05-2022 CO2 [Moles/Vol] 20.3 mmol/L 22.0-30.0 [facility] Serum or plasma urea nitroge n measurement (mass/volume)Ordered By: Jesus Parham on 06-05-2022 Urea nitrogen [Mass/Vol] 38 mg/dL 9-23 [facility] PTH INTACTon 04-29-2022 PTH, Intact 191 pg/mL Critically high 15-65 [facility] Comment on above: Performed By: #### M G, URIC, RENAL #### [facility] [address] [address] [address] Hari Palmer VIT D 25-OH LABCORPon 2021 Vitamin D, 25-Hydroxy 33.6 ng/mL Normal 30.0-100.0 [facility] Comment on above: Result Comment: Ning min D deficiency has been defined by the [place] of Medicine and an Endocrine Society practice guideline as a level of serum 25-OH vitamin D less than 20 ng/mL (1,2). The Endocrine Society went on to further define vitamin D insufficiency as a level between 21 and 29 ng/mL (2). 1. IOM ([place] of Medicine). 2010. Dietary reference intakes for calcium and D. [place]: The National Academies Press. 2. Chantel MF, Landen [place], Eliseo STEPHENS, et al. Evaluation, treatment, and prevention of vitamin D deficiency: an Endocrine Society clinical practice guideline. JCEM. 2010; 96(7):1911-30. Performed By: #### M G, URIC, RENAL #### [facility] [address] [place] [address] Dr. Hari Palmer ABO AND RH TYPEon 04-27-2022 ABO and Rh group Nom (Bld) ABO Rh Typing O Rh Positive Normal [facility] Comment on above: Performed By: #### M G URIC, RENAL #### [facility] [address] [place] [address] Dr. Hari Palmer FERRITINon 04-27-2022 Ferritin [Mass/Vol] 273.0 ng/mL Critically high 6.2-137.0 [facility] Comment on above: Performed By: #### M G, URIC, RENAL #### [facility] [address] [place] [address] Dr. Hari Palmer HEMOGRAM AND PLATELon 2021 Hematocrit (Bld) [Volume fraction] 33.9 % Critically low 36.0-48.0 [facility] Comment on above: Performed By: #### M G, URIC, RENAL #### [facility] [address] [place] [address] Dr. Hari Palmer Hemoglobin (Bld) [Mass/Vol] 11.4 g/dL Critically low 12.0-16.0 [facility] Comment on above: Performed By: #### M G, URIC, RENAL #### [facility] [address] [place] [address] Dr. Hari Palmer MCH (RBC) [Entitic mass] 31.7 pg Normal 26.7-34.0 [facility] Comment on above: Performed By: #### M G, URIC, RENAL #### [facility] [address] [place] [address] Dr. Hari Palmer MCHC (RBC) [Mass/Vol] 33.6 g/dL Normal 29.9-35.2 [facility] Comment on above: Performed By: #### M G, URIC, RENAL #### [facility] [address] [place] [address] Dr. Hari Palmer MCV (RBC) [Entitic vol] 94.2 fL Normal 81.0-99.0 [facility] Comment on above: Performed By: #### M G, URIC, RENAL #### [facility] [address] [place] [address] Dr. Hari Palmer PLT 333 103/ul Normal 150-450 [facility] Comment on above: Performed By: #### M G, URIC, RENAL #### [facility] [address] [place] [address] Dr. Hari Palmer RBC 3.60 106/ul Critically low 4.20-5.40 [facility] Comment on above: Performed By: #### M G, URIC, RENAL #### [facility] [address] [place] [address] Dr. Hari Palmer WBC 9.7 103/ul Normal 4.0-11.0 [facility] Comment on above: Performed By: #### M G, URIC, RENAL #### [facility] [address] [place] [address] Dr. Hari Palmer IRON AND TIBCon 04-27-2022 % SATURATION 20.1 % Normal [facility] Comment on above: Performed By: #### M G, URIC, RENAL #### [facility] [address] [place] [address] Dr. Hari Palmer Iron [Mass/Vol] 57.0 ug/dL Normal 50.0-170.0 [facility] Comment on above: Performed By: #### M G, URIC, RENAL #### [facility] [address] [place] [address] Dr. Hari Palmer TIBC DIRECT 283.0 ug/dL Normal 250.0-450.0 [facility] Comment on above: Performed By: #### M G, URIC, RENAL #### [facility] [address] [place] [address] Dr. Hari Palmer MAGNESIUMon 04-27-2022 Magnesium [Mass/Vol] 2.1 mg/dL Normal 1.8-2.4 [facility] Comment on above: Performed By: #### R ENAL, URIC, MG #### [facility] [address] [address] [address] Hari Palmer RENAL FUNCTION PANELon 04-27 Albumin [Mass/Vol] 3.6 g/dL Normal 3.4-5.0 [facility] Comment on above: Performed By: #### R ENAL, URIC, MG #### [facility] [address] [address] [address] Hari Palmer Calcium [Mass/Vol] 9.0 mg/dL Normal 8.5-10.1 [facility] Comment on above: Performed By: #### R ENAL, URIC, MG #### [facility] [address] [address] [address] Hari Palmer Chloride [Moles/Vol] 104 mmol/L Normal 98-107 [facility] Comment on above: Performed By: #### R ENAL, URIC, MG #### [facility] [address] [address] [address] Hari Palmer CO2 [Moles/Vol] 23.0 mmol/L Normal 21.0-32.0 [facility] Comment on above: Performed By: #### R ENAL, URIC, MG #### [facility] [address] [address] [address] Hari Palmer Creatinine [Mass/Vol] 3.38 mg/dL Critically high 0.55-1.02 [facility] Comment on above: Performed By: #### R ENAL, URIC, MG #### [facility] [address] [address] [address] Hari Palmer EGFR-AF TRISTANIAN 18 mL/min/1.73m2 Critically low >=60 [facility] Comment on above: Performed By: #### R ENAL, URIC, MG #### [facility] [address] [address] [address] Hari Palmer EGFR-NON AF TRISTANIAN 15 mL/min/1.73m2 Critically low >=60 [facility] Comment on above: Performed By: #### R ENAL, URIC, MG #### [facility] [address] [place] [address] Dr. Hari Palmer Glucose [Mass/Vol] 113 mg/dL Critically high 74-106 T [facility] Comment on above: Performed By: #### R ENAL, URIC, MG #### [facility] [address] [place] [address] Dr. Hari Palmer Phosphate [Mass/Vol] 4.4 mg/dL Normal 2.6-4.7 [facility] Comment on above: Performed By: #### R ENAL, URIC, MG #### [facility] [address] [place] [address] Dr. Hari Palmer Potassium [Moles/Vol] 4.0 mmol/L Normal 3.5-5.1 [facility] Comment on above: Performed By: #### R ENAL, URIC, MG #### [facility] [address] [place] [address] Dr. Hari Palmer Sodium [Moles/Vol] 137 mmol/L Normal 136-145 [facility] Comment on above: Performed By: #### R ENAL, URIC, MG #### [facility] [address] [place] [address] Dr. Hari Palmer Urea nitrogen [Mass/Vol] 44.0 mg/dL Critically high 7.0-18.0 [facility] Comment on above: Performed By: #### R ENAL, URIC, MG #### [facility] [address] [place] [address] Dr. Hari Palmer URIC ACID SERUMon 04-27-2022 Urate [Mass/Vol] 6.6 mg/dL Critically high 2.6-6.0 [facility] Comment on above: Performed By: #### R ENAL, URIC, MG #### [facility] [address] [place] [address] Dr. Hari Palmer URINE T PROTEIN CREAT RATIOo n 04-27-2022 Protein (U) [Mass/Vol] 31.4 mg/dL Critically high <=12.0 [facility] Comment on above: Performed By: #### M G, URIC, RENAL #### [facility] [address] [address] [address] Hari Palmer UR PROT CREAT RAT 0.55 Normal [facility] Comment on above: Performed By: #### M G, URIC, RENAL #### [facility] [id number] Hari Palmer URINE CREAT 57.50 mg/dL Normal 20.00-300.00 [facility] Comment on above: Performed By: #### M G, URIC, RENAL #### [facility] [address] [address] [address] Hari Palmer ECHOCARDIO M/2D COMPLETEon 0 03-29-2022 ECHOCARDIO M/2D COMPLETE Patient: MANDEEP PURI Exam Date: 03/29/2022 : 1975 Gender:F Ordering : HAIDER FRENCH M.D. Admission #: [id number] Family : Order #: [id number] CLICK HERE TO VIEW EXAM ECHOCARDIOGRAM REPORT [...] Area(A4C): 17.00 cm2 Left Atrium Systolic Volume(A2C): 62683 mm3 Left Atrium Systolic Volume(A4C): 80745 mm3 Mitral Valve MV E to A Ratio: 0.80 Deceleration [place]: 3210 mm/s2 Mitral Valve A-Wave Peak Velocity: [...] Alonzo M.D. on 04/01/2022 at 12:33 Normal [facility] COVID-19 SOFIAOrdered By: Mary Beth Jones on 03-28-2022 SARS-CoV+SARS-CoV-2 (COVID-19) Ag IA.rapid Ql (Resp) Negative Negative [facility] Comment on above: This is a duplicate Ada SARS Antigen (GLORIA) result to be used for statistical tracking purpose only. No Panel InformationOrdered By: Shabbir Jones on 03-28-2022 SARS Antigen (LFIA) [facility] BLOOD TYPE AND RHon 02-13-20 ABO INTERPRETATION O Normal [facility] Comment on above: Performed By: #### 3 1397, 55052, 60472, 67782, 20622 #### [facility] [address] RH INTERPRETATION Positive Normal [facility] Comment on above: Performed By: #### 3 1397, 70320, 82989, 96014, 76106 #### [facility] [address] [facility]. [address] BNP (B-TYPE NATRIURETIC PEPT JOEL)on 02-12-2022 Natriuretic peptide B (Bld) [Mass/Vol] 10 pg/mL Normal 0-100 [facility] Comment on above: Result Comment: Give n the appropriate clinical setting a BNP result of >100 pg/mL indicates congestive heart failure. Performed By: #### 8 9483, 30230 #### [facility] [address] CBC W/DIFFon 02-12-2022 ABS IMM GRANS 0.2 10*3/uL Normal 0.0-0.2 [facility] Comment on above: Performed By: #### 3 1397, 36180, 03674, 86244, 20650 #### [facility] [address] ABS NEUTROPHILS 7.8 10*3/uL High 1.6-7.6 [facility] Comment on above: Performed By: #### 3 1397, 08958, 56710, 81420, 88830 #### [facility] [address] [place] [address], [facility] Basophils (Bld) [#/Vol] 0.1 10*3/uL Normal 0.0-0.2 [facility] Comment on above: Performed By: #### 3 1397, 55889, 50167, 06068, 58999 #### [facility] [address] [place] [address], [facility] Basophils/100 WBC (Bld) 0.6 % Normal 0.0-1.0 [facility] Comment on above: Performed By: #### 3 1397, 69654, 63634, 56184, 87077 #### [facility] [address] [place] [address], [facility] Eosinophils (Bld) [#/Vol] 0.3 10*3/uL Normal 0.0-0.5 [facility] Comment on above: Performed By: #### 3 1397, 09439, 09328, 65822, 45806 #### [facility] [address] [place] [address], [facility] Eosinophils/100 WBC (Bld) 2.5 % Normal 0.0-6.0 [facility] Comment on above: Performed By: #### 3 1397, 65714, 23515, 51648, 37926 #### [facility] [address] [facility] [address] Erythrocyte distribution width (RBC) [Ratio] 13.6 % Normal 11.5-15.0 [facility] Comment on above: Performed By: #### 3 1397, 34584, 44304, 52057, 26957 #### [facility] [address] [place] [address], [facility] Hematocrit (Bld) [Volume fraction] 34.5 % Low 36.0-45.0 [facility] Comment on above: Performed By: #### 3 1397, 33648, 92156, 94094, 76518 #### [facility] [address] [place] [id number], [facility] Hemoglobin (Bld) [Mass/Vol] 11.3 g/dL Low 12.0-15.0 [facility] Comment on above: Performed By: #### 3 1397, 12303, 17203, 00393, 40306 #### [facility] [address] [place] [address], [facility] IMMATURE GRANS 1.4 % High 0.0-1.0 [facility] Comment on above: Performed By: #### 3 1397, 75663, 93534, 54125, 67556 #### [facility] [address] [place] [address], [facility] Lymphocytes (Bld) [#/Vol] 2.0 10*3/uL Normal 1.2-4.0 [facility] Comment on above: Performed By: #### 3 1397, 08651, 98185, 42496, 39783 #### [facility] [address] [facility] [place] [address], [facility] Lymphocytes/100 WBC (Bld) 18.6 % Low 20.0-45.0 [facility] Comment on above: Performed By: #### 3 1397, 02209, 62733, 17498, 54590 #### [facility] [address] [facility] [place] [address], [facility] MCH (RBC) [Entitic mass] 31.3 pg Normal 27.0-33.0 [facility] Comment on above: Performed By: #### 3 1397, 28489, 35152, 01988, 57880 #### [facility] [address] [facility] [place] [address], [facility] MCHC (RBC) [Mass/Vol] 32.8 g/dL Normal 32.0-35.0 [facility] Comment on above: Performed By: #### 3 1397, 58289, 47138, 67704, 54153 #### [facility] [address] [place] [id number], [facility] MCV (RBC) [Entitic vol] 95.6 fL Normal 82.0-98.0 [facility] Comment on above: Performed By: #### 3 1397, 30631, 42645, 42336, 59722 #### [facility] [address] [facility] [place] [address], [facility] Monocytes (Bld) [#/Vol] 0.5 10*3/uL Normal 0.1-1.0 [facility] Comment on above: Performed By: #### 3 1397, 36544, 86064, 43565, 73387 #### [facility] [address] [facility] [place] [address], [facility] MONOS 4.9 % Low 5.0-12.0 [facility] Comment on above: Performed By: #### 3 1397, 21979, 04785, 34450, 11259 #### [facility] [address] [facility] Neutrophils/100 WBC (Bld) 72.0 % Normal 40.0-72.0 [facility] Comment on above: Performed By: #### 3 1397, 67932, 12949, 53190, 31521 #### [facility] [address] [facility]. [address] Nucleated RBC/100 WBC (Bld) [Ratio] 0 % Normal 0-0 [facility] Comment on above: Performed By: #### 3 1397, 73329, 74001, 22658, 75687 #### [facility] [address] [facility]. [address] PLAT CNT 315 10*3/uL Normal 150-400 [facility] Comment on above: Performed By: #### 3 1397, 85380, 65402, 99344, 65157 #### [facility] [address] [facility]. [address] RBC (Bld) [#/Vol] 3.61 10*6/uL Low 3.80-5.00 [facility] Comment on above: Performed By: #### 3 1397, 91894, 21484, 60586, 54826 #### [facility] [address] [facility] [place] [address], [facility] WBC (Bld) [#/Vol] 10.78 10*3/uL High 4.00-10.60 [facility] Comment on above: Performed By: #### 3 1397, 52284, 92588, 57770, 23404 #### [facility] [address] [facility] [place], [place] [id number] [place] [address] CHEST AND LATERALon 02-13-20 CHEST AND LATERAL [facility] Department of Radiology [address] [place] [address] Patient Name: MANDEEP PURI : [...] pathology. Electronically signed: Royal Dominguez. Transcribed by: [id number], User Resident: Electronically Signed by: ROYAL DOMINGUEZ @ 02/13/2022 11:48 AM Normal [facility] CMV IGG BLOODon 02-12-2022 CMV IGG 3.13 Normal [facility] Comment on above: Result Comment: NORM AL RANGES: < OR = 0.9O NEGATIVE ; NO DETECTABLE IgG ANTIBODY TO CMV 0.91 - 1.09 EQUIVOCAL; REPEAT TESTING SUGGESTED > OR = 1.10 POSITIVE ; INDICATES PRESENCE OF DETECTABLE IgG ANTIBODY TO CMV Performed By: #### 3 1397, 32384, 98163, 43584, 07547 #### [facility] [address] [place] [address], [facility] COMP METABOLIC PANELon 02-12 Albumin [Mass/Vol] 4.5 g/dL Normal 3.5-5.7 [facility] Comment on above: Performed By: #### 2 2505, 53609, 29064 #### [facility] [address] [place] [address], [facility] ALKALINE PHOSPH 89 IU/L Normal 34-104 [facility] Comment on above: Performed By: #### 2 2505, 37307, 21872 #### [facility] [address] [place] [address], [facility] ALT [Catalytic activity/Vol] 12 U/L Normal 7-52 [facility] Comment on above: Performed By: #### 2 2505, 47554, 87648 #### [facility] [address] [place] [address], [place] AST [Catalytic activity/Vol] 13 U/L Normal 13-39 [facility] Comment on above: Performed By: #### 2 2505, 07823, 94720 #### [facility] [address] [place] [address], [place] Bilirubin [Mass/Vol] 0.3 mg/dL Normal 0.3-1.0 [facility] Comment on above: Performed By: #### 2 2505, , 98692 #### [facility] [address] [place] [address], [place] Calcium [Mass/Vol] 9.5 mg/dL Normal 8.6-10.3 [facility] Comment on above: Performed By: #### 2 2505, , 65055 #### [facility] [address] [place] [address], [place] Chloride [Moles/Vol] 103 mmol/L Normal 98-107 [facility] Comment on above: Performed By: #### 2 2505, , 33132 #### [facility] [address] [place] [address], [place] CO2 [Moles/Vol] 22 mmol/L Normal 21-31 [facility] Comment on above: Performed By: #### 2 2505, 33228, 38683 #### [facility] [address] [place] [address], [place] Creatinine [Mass/Vol] 3.51 mg/dL High 0.60-1.20 [facility] Comment on above: Performed By: #### 2 2505, 23274, 22656 #### [facility] [address] [place] [address], [place] eGFR- 17 ml/min/1.73sq m Abnormal >60 [facility] Comment on above: Performed By: #### 2 2505, 45673, 74594 #### [facility] [address] [place] [address], [place] eGFR- non- 14 ml/min/1.73sq m Abnormal >60 [facility] Comment on above: Performed By: #### 2 2505, 94458, 98931 #### [facility] [address] [place] [address], [place] Glucose [Mass/Vol] 100 mg/dL Normal 70-100 [facility] Comment on above: Performed By: #### 2 2505, 40728, 78437 #### [facility] [address] [place] [address], [place] Potassium [Moles/Vol] 3.9 mmol/L Normal 3.5-5.1 [facility] Comment on above: Performed By: #### 2 2505, 80520, 35737 #### [facility] [address] [place] [address], [place] Protein [Mass/Vol] 8.0 g/dL Normal 6.0-8.3 [facility] Comment on above: Performed By: #### 2 2505, 47989, 93403 #### [facility] [address] [place] [address], [place] Sodium [Moles/Vol] 136 mmol/L Normal 136-145 [facility] Comment on above: Performed By: #### 2 2505, 48900, 39318 #### [facility] [address] [place] [address], [place] Urea nitrogen [Mass/Vol] 41 mg/dL High 7-25 [facility] Comment on above: Performed By: #### 2 2505, 38093, 90306 #### [facility] [address] [place] [address], [place] CREATININE URINE RANDOMon Creatinine (U) [Mass/Vol] 63.0 mg/dL Normal [facility] Comment on above: Result Comment: Ther e are no established reference values for random urine specimens Performed By: #### 3 1397, 71084, 81936, 48283, 14372 #### [address] [place] [address], [facility] CT RENAL RECIPIENT ABDOMEN A ND PEVLIS WO CONTRASTon 02-12-2022 CT RENAL RECIPIENT ABDOMEN AND PEVLIS WO CONTRAST [facility] Department of Radiology [address] [place] [id number] Patient Name: MANDEEP PURI : 1975 Sex: F Age: Race: White Pt. 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 Please evaluate [...] achievable. Electronically signed: NAN SARAVIA. Transcribed by: [email or web address], User Resident: Electronically Signed by: NAN SARAVIA @ 02/12/2022 02:59 PM Normal [facility] Comment on above: Order Comment: , [...] Bilirubin.direct [Mass/Vol] 0.0 mg/dL Normal 0.0-0.2 [facility] Comment on above: Performed By: #### 2 2505, 67137, 49086 #### [facility] [address] [place] [address], [facility] BRETT LAGUERRE VIRUS ABon - EB VCA IGG 2.35 Normal [facility] Comment on above: Order Comment: CONSI STENT WITH PAST EBV INFECTION Result Comment: NORM AL RANGES: < OR = 0.9O NEGATIVE ; NO DETECTABLE IgG ANTIBODY TO EBV-VCA 0.91 - 1.09 EQUIVOCAL; REPEAT TESTING SUGGESTED > OR = 1.10 POSITIVE ; INDICATES PRESENCE OF DETECTABLE IgG ANTIBODY TO EBV Performed By: #### 3 1397, 86122, 44622, 82779, 69615 #### [facility] [address] [place] [address], [facility] EB VCA IGM 0.00 Normal [facility] Comment on above: Order Comment: CONSI STENT WITH PAST EBV INFECTION Result Comment: NORM AL RANGES: < OR = 0.9O NEGATIVE ; NO SIGNIFICANT LEVEL OF DETECTABLE EBV-VCA IgM AB 0.91 - 1.09 EQUIVOCAL; REPEAT TESTING SUGGESTED > OR = 1.10 POSITIVE ; SIGNIFICANT LEVEL OF DETECTABLE EBV-VCA IgM AB Performed By: #### 3 1397, 21597, 60916, 72305, 67772 #### [facility] [address] [place] [address], [facility] HEMOGLOBIN A1Con 02-12-2022 Glucose [Moles/Vol] 120 mmol/L Normal [facility] Comment on above: Performed By: #### 8 7743, 23495 #### [facility] [address] [place] [address], [facility] HbA1c (Bld) [Mass fraction] 5.8 % Normal 4.0-6.0 [facility] Comment on above: Performed By: #### 8 5123, 90367 #### [facility] [address] [facility] [place] [address], [facility] HEPATITIS A ANTIBODY IGMon 0 02-12-2022 HEP A AB IGM Non-Reactive Normal NONREACTIVE [facility] Comment on above: Performed By: #### 3 1397, 38362, 52947, 63131, 85376 #### [facility] [address] [place] [address], [facility] HEPATITIS B CORE ANTIBODYon 02-12-2022 HEP B CORE AB Non-Reactive Normal NONREACTIVE [facility] Comment on above: Performed By: #### 3 1397, 10023, 08441, 15951, 40917 #### [facility] [address] [facility] [place] [address], [facility] HEPATITIS B SURFACE ANTIBODY QUANTon 02-12-2022 HEP B SURF AB 1.14 mIU/ml Normal [facility] Comment on above: Result Comment: INTE RPRETATION: NONREACTIVE<8.00 mIU/mL INDETERMINATE8.00 - 12.00 mIU/mL REACTIVE>12 mIU/mL Performed By: #### 3 1397, 39409, 50581, 60723, 73948 #### [facility] [address] [facility] [place] [address], [facility] HEPATITIS B SURFACE ANTIGEN QUALon 02-12-2022 HEP B SURF AG QUAL Non-Reactive Normal NONREACTIVE [facility] Comment on above: Performed By: #### 3 1397, 69526, 74063, 58854, 15167 #### [facility] [address] [facility] [place] [id number], [facility] HEPATITIS C ANTIBODYon 02-12 ANTI-HCV Non-Reactive Normal NONREACTIVE [facility] Comment on above: Performed By: #### 3 1397, 00015, 47663, 92824, 83323 #### [facility] [address] [facility] HIV1 AND 2 COMBO 4Gon 2021 HIV COMBO Negative Normal NEGATIVE [facility] Comment on above: Performed By: #### 3 1397, 87682, 35488, 22408, 19187 #### [facility] [address] [facility] [place] [address], [facility] HLA ABC CLASS I TYPINGon A*-1 EQUIVALENT 1 Normal [facility] Comment on above: Order Comment: Some [...] to frequency. Performed By: #### 3 1397, 11460, 39788, 06896, 92480 #### [facility] [address] [facility] [place] [place] [address], [facility] A*-2 EQUIVALENT 2 Normal [facility] Comment on above: Order Comment: Some [...] to frequency. Performed By: #### 3 1397, 85121, 08364, 40225, 12838 #### [facility] [address] [facility] [place] [address], [facility] B*-1 EQUIVALENT 35 Normal [facility] Comment on above: Order Comment: Some [...] to frequency. Performed By: #### 3 1397, 95237, 05487, 66623, 94569 #### [facility] [address] [place] [address], [facility] B*-2 EQUIVALENT 37 Normal [facility] Comment on above: Order Comment: Some [...] to frequency. Performed By: #### 3 1397, 78546, 50325, 45576, 16714 #### [facility] [address] [place] [address], [place] Bw*-1 EQUIVALENT 4 Normal [facility] Comment on above: Order Comment: Some [...] to frequency. Performed By: #### 3 1397, 06464, 83707, 36546, 75403 #### [facility] [address] [place] [address], [place] Bw*-2 EQUIVALENT 6 Normal [facility] Comment on above: Order Comment: Some [...] to frequency. Performed By: #### 3 1397, 05087, 35247, 26195, 56616 #### [facility] [address] [place] [address], [facility] C*-1 EQUIVALENT 4 Normal [facility] Comment on above: Order Comment: Some [...] to frequency. Performed By: #### 3 1397, 13134, 52111, 68443, 87628 #### [facility] [address] [place] [address], [facility] C*-2 EQUIVALENT 6 Normal [facility] Comment on above: Order Comment: Some [...] to frequency. Performed By: #### 3 1397, 62042, 64558, 85676, 95143 #### [facility] [address] [place] [address], [facility] METHOD Class I Typing by PCR-SSOP Luminex Normal [facility] Comment on above: Order Comment: Some [...] to frequency. Performed By: #### 3 1397, 04071, 53526, 23428, 37403 #### [facility] [address] [facility] SIGNED BY Normal [facility] Comment on above: Order Comment: Some [...] to frequency. Result Comment: Nelson Noriega, MS,CHT(DONA),MT(ASCP) Blending Coordinator, Transplant Immunology Performed By: #### 3 1397, 60330, 68626, 83223, 12990 #### [facility] [address] [facility]. [address] CLASS II TYPINGon DPB1*-1 EQUIVALENT 04:01 Normal [facility] Comment on above: Order Comment: Some [...] to frequency. Performed By: #### 3 1397, 85821, 55698, 40793, 24400 #### [facility] [address] DPB1*-2 EQUIVALENT 04:02 Normal [facility] Comment on above: Order Comment: Some [...] to frequency. Performed By: #### 3 1397, 62285, 90630, 76714, 88068 #### [facility] [address] [place] [address], [place] DQA1*-1 EQUIVALENT 01 Normal [facility] Comment on above: Order Comment: Some [...] to frequency. Performed By: #### 3 1397, 42823, 32884, 85324, 73353 #### [facility] [address] [facility] [place] [address], [place] DQA1*-2 EQUIVALENT 05 Normal [facility] Comment on above: Order Comment: Some [...] to frequency. Performed By: #### 3 1397, 97395, 14993, 78152, 95856 #### [facility] [address] [place] [address], [place] DQB1*-1 EQUIVALENT 7 Normal [facility] Comment on above: Order Comment: Some [...] to frequency. Performed By: #### 3 1397, 91442, 43810, 53650, 28773 #### [facility] [address] [place] [address], [facility] DQB1*-2 EQUIVALENT 5 Normal [facility] Comment on above: Order Comment: Some [...] to frequency. Performed By: #### 3 1397, 48931, 23244, 97639, 84588 #### [facility] [address] [place] [address], [facility] DRB1*-1 EQUIVALENT 10 Normal [facility] Comment on above: Order Comment: Some [...] to frequency. Performed By: #### 3 1397, 28181, 78710, 78158, 45753 #### [facility] [address] [place] [address], [place] DRB1*-2 EQUIVALENT 11 Normal [facility] Comment on above: Order Comment: Some [...] to frequency. Performed By: #### 3 1397, 61556, 25770, 29882, 17656 #### [facility] [address] DRB3*-1 EQUIVALENT 52 Normal [facility] Comment on above: Order Comment: Some [...] to frequency. Performed By: #### 3 1397, 17019, 68758, 65301, 34334 #### [facility] [address] [facility]. [address] METHOD Class II Typing by PCR-SSOP Luminex Normal [facility] Comment on above: Order Comment: Some [...] to frequency. Performed By: #### 3 1397, 12797, 01208, 09346, 98373 #### [facility] [address] [facility] [place] [address], [facility] LIPID PROFILEon 02-12-2022 Cholesterol [Mass/Vol] 221 mg/dL High 120-200 Th [facility] Comment on above: Result Comment: CHOL ESTEROL REFERENCE RANGE: 20 YEARS AND OLDER CARDIOVASCULAR RISK Less than 200 mg/dl Low Risk 200 to 239 mg/dl Borderline Risk 240 mg/dl and greater High Risk Performed By: #### 3 1397, 28437, 74529, 57266, 05729 #### [facility] [address] [place] [address], [facility] Cholesterol in HDL [Mass/Vol] 40 mg/dL Normal 23-92 [facility] Comment on above: Result Comment: Slig ht variation in normal range could be due to gender and/or age. HDL CHOLESTEROL REFERENCE RANGE: 20 years and older Cardiovascular Risk > or =60 mg/dL Desirable 40 TO 59 mg/dL Low Risk <40 mg/dL High Risk Performed By: #### 3 1397, 21731, 37133, 10954, 92157 #### [facility] [address] [place] [address], [facility] Cholesterol in LDL [Mass/Vol] 101 mg/dL Normal 0-130 [facility] Comment on above: Result Comment: LDL IS A CALCULATION LDL IS ONLY VALID IF THE TRIG IS LESS THAN 400. Performed By: #### 3 1397, 27709, 60648, 91399, 17997 #### [facility] [address] [facility] [place] [address], [facility] Cholesterol.total/Chol esterol in HDL [Mass ratio] 5.5 {ratio} High .0-4.5 [facility] Comment on above: Performed By: #### 3 1397, 59245, 87037, 06223, 31340 #### [facility] [address] [facility] [place] [address], [facility] NON-HDL CHOLESTEROL 181 mg/dL Normal [facility] Comment on above: Performed By: #### 3 1397, 99210, 89066, 73383, 50187 #### [facility] [address] [place] [address], [facility] Triglyceride [Mass/Vol] 402 mg/dL High 40-149 [facility] Comment on above: Result Comment: TRIG LYCERIDE REFERENCE RANGE: 20 YEARS AND OLDER CARDIOVASCULAR RISK LESS THAN 150 mg/dl LOW RISK 150 TO 199 mg/dl BORDERLINE RISK 200 mg/dl AND GREATER HIGH RISK Performed By: #### 3 1397, 89587, 71845, 18674, 31195 #### [facility] [address] [place] [address], [facility] VLDL CHOL 80 mg/dL High 0-40 [facility] Comment on above: Performed By: #### 3 1397, 81349, 41543, 51220, 95399 #### [facility] [address] MUMPS IGG BLDon 02-12-2022 MUMPS IGG 5.46 Normal [facility] Comment on above: Result Comment: NORM AL RANGES: < OR = 0.9O NEGATIVE ; NO DETECTABLE IgG ANTIBODY TO MUMPS 0.91 - 1.09 EQUIVOCAL; REPEAT TESTING SUGGESTED > OR = 1.10 POSITIVE ; INDICATES PRESENCE OF DETECTABLE IgG ANTIBODY TO MUMPS Performed By: #### 3 1397, 76797, 99299, 30178, 78034 #### [facility] [address] RUBELLAon 02-12-2022 RUBELLA 4.79 Normal [facility] Comment on above: Result Comment: NORM AL RANGES: < OR = 0.9O NEGATIVE ; NO DETECTABLE IgG ANTIBODY TO RUBELLA 0.91 - 1.09 EQUIVOCAL; REPEAT TESTING SUGGESTED > OR = 1.10 POSITIVE ; INDICATES PRESENCE OF DETECTABLE IgG ANTIBODY TO RUBELLA VIRUS Performed By: #### 3 1397, 78700, 82828, 96411, 49125 #### [facility] [address] RUBEOLA MEASLES IGGon 2021 RUBEO IGG 6.43 Normal [facility] Comment on above: Result Comment: NORM AL RANGES: < OR = 0.9O NEGATIVE ; NO DETECTABLE IgG ANTIBODY TO RUBEOLA 0.91 - 1.09 EQUIVOCAL; REPEAT TESTING SUGGESTED > OR = 1.10 POSITIVE ; INDICATES PRESENCE OF DETECTABLE IgG ANTIBODY TO RUBEOLA Performed By: #### 3 1397, 33821, 66067, 14400, 41011 #### [facility] [address] [place] [address], [facility] SINGLE ANTIGEN CLASS 1on METHOD Class I Single Antigen Normal [facility] Comment on above: Order Comment: Some [...] to frequency. Performed By: #### 3 1397, 67626, 66915, 58316, 32894 #### [facility] [address] [place] [address], [facility] SINGLE ANTIGEN CLASS 2on COMMENTS Normal [facility] Comment on above: Order Comment: Some [...] watch list. Performed By: #### 3 1397, 80498, 21348, 46284, 66825 #### [facility] [address] [facility] [place] [place] [address], [facility] Result Comment: Clas s I Antigen Microbeads Potential specificites added to the watch list. CPRA 0 Normal [facility] Comment on above: Order Comment: Some [...] to frequency. Performed By: #### 3 1397, 94194, 26978, 56088, 83320 #### [facility] [address] METHOD Class II Single Antigen Normal T he [facility] Comment on above: Order Comment: Some [...] to frequency. Performed By: #### 3 1397, 91745, 36194, 84077, 88811 #### [facility] [address] T PROT UR Yesy 02-12-2022 U TOTAL PROTEIN 44.0 mg/dL Normal [facility] Comment on above: Result Comment: Ther e are no established reference values for random urine specimens Performed By: #### 3 1397, 10908, 03919, 64372, 27103 #### [facility] [address] TB QUANTIFERON PLUSon 2021 MITOGEN MINUS NIL >10.00 Normal [facility] Comment on above: Performed By: #### 3 1592 #### [facility] [address] NIL 0.03 IU/mL Normal [facility] Comment on above: Performed By: #### 3 1592 #### [facility] [address] TB QUANTIFERON Negative Normal NEGATIVE [facility] Comment on above: Result Comment: Jadiel tiferon TB Gold Interpretation (IU/mL): NEGATIVE: M. tuberculosis infection not likely. Nil: <=8.0 TB1 Antigen minus Nil ([id number]): <0.35 OR >=0.35; and <25% of Nil value. TB2 Antigen minus Nil ([id number]): <0.35 OR >=0.35; and <25% of Nil [...] (https://www.cdc.gov/tb/publications/guidlines/default.htm Performed By: #### 3 1592 #### [facility] [address] [place] [address], [facility] TB1 AG 0.05 IU/mL Normal [facility] Comment on above: Performed By: #### 3 1592 #### [facility] [address] [place] [address], [facility] TB1 AG MINUS NIL 0.02 IU/mL Normal [facility] Comment on above: Performed By: #### 3 1592 #### [facility] [address] [place] [address], [facility] TB2 AG 0.05 IU/mL Normal [facility] Comment on above: Performed By: #### 3 1592 #### [facility] [address] [facility] [place] [place] [address], [facility] TB2 AG MINUS NIL 0.02 IU/mL Normal [facility] Comment on above: Performed By: #### 3 1592 #### [facility] [address] [place] [address], [facility] UA,MICROSCOPIC REQUIREDon Appearance (U) SL CLOUDY Abnormal CLEAR [facility] Comment on above: Performed By: #### 3 1397, 00166, 86505, 28933, 90899 #### [facility] [address] [place] [address], [facility] Bilirubin Ql (U) Negative Normal NEGATIVE [facility] Comment on above: Performed By: #### 3 1397, 15499, 63889, 96798, 42320 #### [facility] [address] [place] [address], [facility] Color (U) STRAW Abnormal YELLOW [facility] Comment on above: Performed By: #### 3 1397, 92685, 91777, 71323, 60419 #### [facility] [address] [place] [address], [facility] EPIS MANY Abnormal FEW,OCC,NONE SEEN [facility] Comment on above: Performed By: #### 3 1397, 61342, 50532, 03232, 80054 #### [facility] [address] [place] [address], [facility] Glucose Ql (U) 50 mg/dL Abnormal NEGATIVE [facility] Comment on above: Performed By: #### 3 1397, 80010, 74805, 84105, 48962 #### [facility] [address] [place] [address], [facility] Hemoglobin Ql (U) Negative Normal NEGATIVE [facility] Comment on above: Performed By: #### 3 1397, 80620, 27009, 10968, 72452 #### [facility] [address] [place] [address], [facility] KETONE Negative Normal NEGATIVE [facility] Comment on above: Performed By: #### 3 1397, 19177, 34097, 98682, 18216 #### [facility] [address] [place] [address], [facility] LEUK MARYAN MODERATE Abnormal NEGATIVE [facility] Comment on above: Performed By: #### 3 1397, 19954, 67799, 69158, 23290 #### [facility] [address] [place] [address], [place] Nitrite Ql (U) Negative Normal NEGATIVE [facility] Comment on above: Performed By: #### 3 1397, 33352, 29353, 50724, 97064 #### [facility] [address] [facility]. [address] pH (U) 7.0 [pH] Normal 5.0-8.0 [facility] Comment on above: Performed By: #### 3 1397, 09388, 71693, 79350, 62869 #### [facility] [address] [facility]. [address] Protein Ql (U) 30 mg/dL Abnormal NEGATIVE [facility] Comment on above: Performed By: #### 3 1397, 85255, 94574, 13325, 98675 #### [facility] [address] [facility]. [address] RBC NONE SEEN Normal NONE SEEN [facility] Comment on above: Performed By: #### 3 1397, 56737, 61730, 51744, 61826 #### [facility] [address] [facility]. [address] SPEC GRAV 1.009 Low 1.015-1.020 [facility] Comment on above: Performed By: #### 3 1397, 61500, 96930, 14682, 70267 #### [facility] [address] [facility]. [address] WBC UA 11-20 Abnormal NONE SEEN [facility] Comment on above: Performed By: #### 3 1397, 95015, 74016, 35067, 19649 #### [facility] [address] VARICELLA ZOSTER IGGon 02-12 VARICELLA IGG 3.29 Normal [facility] Comment on above: Result Comment: NORM AL RANGES: < OR = 0.9O NEGATIVE ; NO DETECTABLE IgG ANTIBODY TO VARICELLA-ZOSTER VIRUS 0.91 - 1.09 EQUIVOCAL; REPEAT TESTING SUGGESTED > OR = 1.10 POSITIVE ; INDICATES PRESENCE OF DETECTABLE IgG ANTIBODY TO VARICELLA-ZOSTER VIRUS Performed By: #### 3 1397, 39876, 18207, 00185, 96166 #### [facility] [address] PTH INTACTon 12-04-2021 PTH, Intact 165 pg/mL Critically high 15-65 [facility] Comment on above: Performed By: #### M Edy URIC, RENAL #### [facility] [address] [place] [address] Dr. Hari Palmer FERRITINon 12-03-2021 Ferritin [Mass/Vol] 256.0 ng/mL Critically high 6.2-137.0 [facility] Comment on above: Performed By: #### M Edy URIC, RENAL #### [facility] [address] [place] [address] Dr. Hari Palmer HEMOGRAM AND PLATELon 2021 Hematocrit (Bld) [Volume fraction] 33.7 % Critically low 36.0-48.0 [facility] Comment on above: Performed By: #### M Edy URIC, RENAL #### [facility] [address] [place] [address] Dr. Hari Palmer Hemoglobin (Bld) [Mass/Vol] 10.9 g/dL Critically low 12.0-16.0 [facility] Comment on above: Performed By: #### M G URIC, RENAL #### [facility] [address] [place] [address] Dr. Hari Palmer MCH (RBC) [Entitic mass] 31.4 pg Normal 26.7-34.0 [facility] Comment on above: Performed By: #### M G, URIC, RENAL #### [facility] [address] [place] [address] Dr. Hari Palmer MCHC (RBC) [Mass/Vol] 32.3 g/dL Normal 29.9-35.2 [facility] Comment on above: Performed By: #### M G, URIC, RENAL #### [facility] [address] [place] [address] Dr. Hari Palmer MCV (RBC) [Entitic vol] 97.1 fL Normal 81.0-99.0 [facility] Comment on above: Performed By: #### M Edy URIC, RENAL #### [facility] [address] [place] [address] Dr. Hari Palmer PLT 314 103/ul Normal 150-450 [facility] Comment on above: Performed By: #### M Edy URIC, RENAL #### [facility] [address] [place] [address] Dr. Hari Palmer RBC 3.47 106/ul Critically low 4.20-5.40 [facility] Comment on above: Performed By: #### M Edy URIC, RENAL #### [facility] [address] [place] [address] Dr. Hari Palmer WBC 9.4 103/ul Normal 4.0-11.0 [facility] Comment on above: Performed By: #### Xiomara Snow URIC, RENAL #### [facility] [address] [place] [address] Dr. Hari Palmer IRON AND TIBCon 12-03-2021 % SATURATION 19.0 % Normal [facility] Comment on above: Performed By: #### M Edy URIC, RENAL #### [facility] [address] [place] [address] Dr. Hari Palmer Iron [Mass/Vol] 52.0 ug/dL Normal 37.0-170.0 [facility] Comment on above: Performed By: #### M Edy, URIC, RENAL #### [facility] [address] [place] [address] Dr. Hari Palmer TIBC DIRECT 273.0 ug/dL Normal 261.0-497.0 [facility] Comment on above: Performed By: #### M Edy, URIC, RENAL #### [facility] [address] [place] [address] Dr. Hari Palmer MAGNESIUMon 12-03-2021 Magnesium [Mass/Vol] 2.1 mg/dL Normal 1.6-2.3 [facility] Comment on above: Performed By: #### Xiomara G, URIC, RENAL #### [facility] [address] [address] [address] Hari Palmer RENAL FUNCTION PANELon 12-03 Albumin [Mass/Vol] 3.6 g/dL Normal 3.5-5.0 [facility] Comment on above: Performed By: #### M G, URIC, RENAL #### [facility] [address] [place] [address] Dr. Hari Palmer Calcium [Mass/Vol] 8.4 mg/dL Normal 8.4-10.2 [facility] Comment on above: Performed By: #### M G, URIC, RENAL #### [facility] [address] [place] [address] Dr. Hari Palmer Chloride [Moles/Vol] 101 mmol/L Normal 98-107 [facility] Comment on above: Performed By: #### M G, URIC, RENAL #### [facility] [address] [place] [address] Dr. Hari Palmer CO2 [Moles/Vol] 24.3 mmol/L Normal 22.0-30.0 [facility] Comment on above: Performed By: #### M G, URIC, RENAL #### [facility] [address] [place] [address] Dr. Hari Palmer Creatinine [Mass/Vol] 3.32 mg/dL Critically high 0.52-1.04 [facility] Comment on above: Performed By: #### M G, URIC, RENAL #### [facility] [address] [place] [address] Dr. Hari Palmer EGFR-AF TRISTANIAN 18 mL/min/1.73m2 Critically low >=60 [facility] Comment on above: Performed By: #### M G, URIC, RENAL #### [facility] [address] [place] [address] Dr. Hari Palmer EGFR-NON AF TRISTANIAN 15 mL/min/1.73m2 Critically low >=60 [facility] Comment on above: Performed By: #### M G, URIC, RENAL #### [facility] [address] [address] [address] Hari Palmer Glucose [Mass/Vol] 119 mg/dL Critically high 74-106 T [facility] Comment on above: Performed By: #### M G, URIC, RENAL #### [facility] [address] [place] [address] Dr. Hari Palmer Phosphate [Mass/Vol] 4.7 mg/dL Critically high 2.5-4.5 [facility] Comment on above: Performed By: #### M G, URIC, RENAL #### [facility] [address] [place] [address] Dr. Hari Palmer Potassium [Moles/Vol] 4.0 mmol/L Normal 3.4-5.0 [facility] Comment on above: Performed By: #### M G, URIC, RENAL #### [facility] [address] [place] [address] Dr. Hari Palmer Sodium [Moles/Vol] 135 mmol/L Critically low 137-145 [facility] Comment on above: Performed By: #### M G, URIC, RENAL #### [facility] [address] [place] [address] Dr. Hari Palmer Urea nitrogen [Mass/Vol] 42.0 mg/dL Critically high 7.0-17.0 [facility] Comment on above: Performed By: #### M G, URIC, RENAL #### [facility] [address] [place] [address] Dr. Hari Palmer UA RANDOM W/MICROSCOPICon BACTERIA TRACE Abnormal NONE SEEN [facility] Comment on above: Performed By: #### U AMIC #### [facility] [address] [place] [address] Dr. Hari Palmer Bilirubin Ql (U) Negative Normal NEGATIVE [facility] Comment on above: Performed By: #### U AMIC #### [facility] [address] [place] [address] Dr. Hari Palmer CAST NONE SEEN Normal NONE SEEN [facility] Comment on above: Performed By: #### U AMIC #### [facility] [address] [place] [address] Dr. Hari Palmer Clarity (U) CLEAR Normal CLEAR [facility] Comment on above: Performed By: #### U AMIC #### [facility] [address] [address] [address] Hari Palmer Color (U) LT. YELLOW Normal YELLOW [facility] Comment on above: Performed By: #### U AMIC #### [facility] [address] [address] [address] Hari Palmer Crystals LM Nom (Urine sed) NONE SEEN Normal NONE SEEN [facility] Comment on above: Performed By: #### U AMIC #### [facility] [address] [address] [address] Hari Palmer Epithelial cells LM Ql (Urine sed) FEW Abnormal NONE SEEN /RARE [facility] Comment on above: Performed By: #### U AMIC #### [facility] [address] [address] [address] Hari Palmer Glucose Ql (U) 100 mg/dl Abnormal NEGATIVE [facility] Comment on above: Performed By: #### U AMIC #### [facility] [address] [address] [address] Hari Palmer Hemoglobin Ql (U) TRACE-INTACT Abnormal NEGATIVE [facility] Comment on above: Performed By: #### U AMIC #### [facility] [address] [address] [address] Hari Palmer Ketones Ql (U) Negative Normal NEGATIVE [facility] Comment on above: Performed By: #### U AMIC #### [facility] [address] [address] [address] Hari Palmer LEUKOCYTES SMALL Abnormal NEGATIVE [facility] Comment on above: Performed By: #### U AMIC #### [facility] [address] [address] [address] Hari Palmer MUCOUS NONE SEEN Normal NONE SEEN [facility] Comment on above: Performed By: #### U AMIC #### [facility] [address] [address] [address] Hari Palmer Nitrite Ql (U) Negative Normal NEGATIVE [facility] Comment on above: Performed By: #### U AMIC #### [facility] [address] [place] [address] Dr. Hari Palmer pH (U) 6.0 [pH] Normal 5-9 [facility] Comment on above: Performed By: #### U AMIC #### [facility] [address] [place] [address] Dr. Hari Palmer RBC 0-2 Normal 0-2 [facility] Comment on above: Performed By: #### U AMIC #### [facility] [address] [place] [address] Dr. Hari Palmer SPEC GRAVITY 1.010 Normal 1.005-<=1.02 5 [facility] Comment on above: Performed By: #### U AMIC #### [facility] [address] [place] [address] Dr. Hari Palmer UA PROTEIN Negative Normal NEGATIVE/ TRACE [facility] Comment on above: Performed By: #### U AMIC #### [facility] [address] [place] [address] Dr. Hari Palmer Urobilinogen Qn (U) 0.2 {Janice'U}/dL Normal 0.2 - 1. 0 [facility] Comment on above: Performed By: #### U AMIC #### [facility] [address] [place] [address] Dr. Hari Palmer WBC 5-10 Abnormal NONE SEEN [facility] Comment on above: Performed By: #### U AMIC #### [facility] [address] [place] [address] Dr. Hari Palmer URIC ACID SERUMon 12-03-2021 Urate [Mass/Vol] 4.6 mg/dL Normal 2.5-6.2 [facility] Comment on above: Performed By: #### M G, URIC, RENAL #### [facility] [address] [place] [address] Dr. Hari Palmer URINE T PROTEIN CREAT RATIOo n 12-03-2021 Protein (U) [Mass/Vol] 31.7 mg/dL Critically high <=12.0 [facility] Comment on above: Performed By: #### M G, URIC, RENAL #### [facility] [address] [place] [address] Dr. Hari Palmer UR PROT CREAT RAT 0.54 Normal [facility] Comment on above: Performed By: #### M G, URIC, RENAL #### [facility] [address] [place] [address] Dr. Hair Palmer URINE CREAT 59.03 mg/dL Normal 20.00-300.00 [facility] Comment on above: Performed By: #### M G, URIC, RENAL #### [facility] [address] [place] [address] Dr. Hari Palmer VITAMIN D 25 OHon 12-03-2021 VIT D 25-OH 38.1 ng/mL Normal [facility] Comment on above: Performed By: #### M G, URIC, RENAL #### [facility] [address] [place] [address] Dr. Hari Palmer VIT D RANGES SEE BELOW Normal [facility] Comment on above: Result Comment: <20 ng/mL Vit D deficient 20 - <30 ng/mL Vit D insufficient 30 - 100 ng/mL Vit D sufficient >100 ng/mL Potential Toxicity Performed By: #### M G, URIC, RENAL #### [facility] [address] [place] [address] Dr. Hari Palmer PTH INTACTon 09-03-2021 PTH, Intact 177 pg/mL Critically high 15-65 [facility] Comment on above: Performed By: #### P THINT #### [facility] [address] [place] [address] Dr. Hari Palmer CBC AUTO DIFFon 09-01-2021 BASO # 0.1 103/ul Normal 0.0-0.1 [facility] Comment on above: Performed By: #### M G, URIC, RENAL #### [facility] [address] [place] [address] Dr. Hari Palmer Basophils/100 WBC (Bld) 0.6 % Normal 0.2-2.0 [facility] Comment on above: Performed By: #### M G, URIC, RENAL #### [facility] [address] [place] [address] Dr. Hari Palmer EO # 0.3 103/ul Normal 0.0-0.7 [facility] Comment on above: Performed By: #### M G, URIC, RENAL #### [facility] [address] [address] [address] Hari Palmer Eosinophils/100 WBC (Bld) 3.5 % Normal 0.9-7.0 [facility] Comment on above: Performed By: #### M G, URIC, RENAL #### [facility] [address] [place] [address] Dr. Hari Palmer Erythrocyte distribution width (RBC) [Ratio] 13.8 % Normal 11.0-15.0 [facility] Comment on above: Performed By: #### M G, URIC, RENAL #### [facility] [address] [place] [address] Dr. Hari Palmer Hematocrit (Bld) [Volume fraction] 32.8 % Critically low 36.0-48.0 [facility] Comment on above: Performed By: #### M G, URIC, RENAL #### [facility] [address] [place] [address] Dr. Hari Palmer Hemoglobin (Bld) [Mass/Vol] 10.6 g/dL Critically low 12.0-16.0 [facility] Comment on above: Performed By: #### M G, URIC, RENAL #### [facility] [address] [place] [address] Dr. Hari Palmer IG # 0.14 10e3/ul Critically high 0.00-0.03 [facility] Comment on above: Performed By: #### M G, URIC, RENAL #### [facility] [address] [place] [address] Dr. Hari Palmer IG % 1.5 % Critically high 0.0-0.5 [facility] Comment on above: Performed By: #### M G, URIC, RENAL #### [facility] [address] [place] [address] Dr. Hari Palmer LYMPH # 1.8 103/ul Normal 1.2-3.8 [facility] Comment on above: Performed By: #### M G, URIC, RENAL #### [facility] [address] [place] [address] Dr. Hari Palmer Lymphocytes/100 WBC (Bld) 19.3 % Critically low 20.5-60.0 [facility] Comment on above: Performed By: #### M G, URIC, RENAL #### [facility] [address] [place] [address] Dr. Hari Palmer MANUAL DIFF REQ NO Normal [facility] Comment on above: Performed By: #### M G, URIC, RENAL #### [facility] [address] [place] [address] Dr. Hari Palmer MCH (RBC) [Entitic mass] 31.4 pg Normal 26.7-34.0 [facility] Comment on above: Performed By: #### M G, URIC, RENAL #### [facility] [address] [place] [address] Dr. Hari Palmer MCHC (RBC) [Mass/Vol] 32.3 g/dL Normal 29.9-35.2 [facility] Comment on above: Performed By: #### M G, URIC, RENAL #### [facility] [address] [place] [address] Dr. Hari Palmer MCV (RBC) [Entitic vol] 97.0 fL Normal 81.0-99.0 [facility] Comment on above: Performed By: #### M G, URIC, RENAL #### [facility] [address] [place] [address] Dr. Hari Palmer MONO # 0.4 103/ul Normal 0.3-0.8 [facility] Comment on above: Performed By: #### M G, URIC, RENAL #### [facility] [address] [place] [address] Dr. Hari Palmer Monocytes/100 WBC (Bld) 4.2 % Normal 1.7-12.0 [facility] Comment on above: Performed By: #### M G, URIC, RENAL #### [facility] [address] [place] [address] Dr. Hari Palmer NEUT # 6.5 103/ul Normal 1.4-6.5 [facility] Comment on above: Performed By: #### M Edy, URIC, RENAL #### [facility] [address] [place] [address] Dr. Hari Palmer Neutrophils/100 WBC (Bld) 70.9 % Normal 43.0-75.0 [facility] Comment on above: Performed By: #### M Edy, URIC, RENAL #### [facility] [address] [place] [address] Dr. Hari Palmer Platelet mean volume (Bld) [Entitic vol] 9.0 fL Critically low 9.5-13.5 [facility] Comment on above: Performed By: #### M Edy URIC, RENAL #### [facility] [address] [place] [address] Dr. Hari Palmer PLT 289 103/ul Normal 150-450 [facility] Comment on above: Performed By: #### Xiomara Snow URIC, RENAL #### [facility] [address] [place] [address] Dr. Hari Palmer RBC 3.38 106/ul Critically low 4.20-5.40 [facility] Comment on above: Performed By: #### M Edy URIC, RENAL #### [facility] [address] [place] [address] Dr. Hari Palmer WBC 9.1 103/ul Normal 4.0-11.0 [facility] Comment on above: Performed By: #### M Edy, URIC, RENAL #### [facility] [address] [place] [address] Dr. Hari Palmer FERRITINon 09-01-2021 Ferritin [Mass/Vol] 204.0 ng/mL Critically high 6.2-137.0 [facility] Comment on above: Performed By: #### M G, URIC, RENAL #### [facility] [address] [place] [address] Dr. Hari Palmer IRON AND TIBCon 09-01-2021 % SATURATION 28.4 % Normal [facility] Comment on above: Performed By: #### M G, URIC, RENAL #### [facility] [address] [place] [address] Dr. Hari Palmer Iron [Mass/Vol] 80.0 ug/dL Normal 37.0-170.0 [facility] Comment on above: Performed By: #### M G, URIC, RENAL #### [facility] [address] [place] [address] Dr. Hari Palmer TIBC DIRECT 282.0 ug/dL Normal 261.0-497.0 [facility] Comment on above: Performed By: #### M G, URIC, RENAL #### [facility] [address] [place] [address] Dr. Hari Palmer MAGNESIUMon 09-01-2021 Magnesium [Mass/Vol] 2.2 mg/dL Normal 1.6-2.3 [facility] Comment on above: Performed By: #### U AMIC #### [facility] [address] [place] [address] Dr. Hari Palmer RENAL FUNCTION PANELon 09-01 Albumin [Mass/Vol] 3.5 g/dL Normal 3.5-5.0 [facility] Comment on above: Performed By: #### M G, URIC, RENAL #### [facility] [address] [place] [address] Dr. Hari Palmre Calcium [Mass/Vol] 8.7 mg/dL Normal 8.4-10.2 [facility] Comment on above: Performed By: #### M G, URIC, RENAL #### [facility] [address] [place] [address] Dr. Hari Palmer Chloride [Moles/Vol] 105 mmol/L Normal 98-107 [facility] Comment on above: Performed By: #### M G, URIC, RENAL #### [facility] [address] [place] [address] Dr. Hari Palmer CO2 [Moles/Vol] 21.1 mmol/L Critically low 22.0-30.0 [facility] Comment on above: Performed By: #### M G, URIC, RENAL #### [facility] [address] [place] [address] Dr. Hari Palmer Creatinine [Mass/Vol] 3.63 mg/dL Critically high 0.52-1.04 [facility] Comment on above: Performed By: #### M G, URIC, RENAL #### [facility] [address] [address] [address] Hari Palmer EGFR-AF TRISTANIAN 16 mL/min/1.73m2 Critically low >=60 [facility] Comment on above: Performed By: #### M G, URIC, RENAL #### [facility] [address] [address] [address] Hari Palmer EGFR-NON AF TRISTANIAN 14 mL/min/1.73m2 Critically low >=60 [facility] Comment on above: Performed By: #### M Edy, URIC, RENAL #### [facility] [address] [place] [address] Dr. Hari Palmer Glucose [Mass/Vol] 115 mg/dL Critically high 74-106 T [facility] Comment on above: Performed By: #### M G, URIC, RENAL #### [facility] [address] [place] [address] Dr. Hari Palmer Phosphate [Mass/Vol] 4.6 mg/dL Critically high 2.5-4.5 [facility] Comment on above: Performed By: #### M Edy, URIC, RENAL #### [facility] [address] [place] [address] Dr. Hari Palmer Potassium [Moles/Vol] 4.2 mmol/L Normal 3.4-5.0 [facility] Comment on above: Performed By: #### M G, URIC, RENAL #### [facility] [address] [place] [address] Dr. Hari Palmer Sodium [Moles/Vol] 138 mmol/L Normal 137-145 [facility] Comment on above: Performed By: #### M G, URIC, RENAL #### [facility] [address] [place] [address] Dr. Hari Palmer Urea nitrogen [Mass/Vol] 50.0 mg/dL Critically high 7.0-17.0 [facility] Comment on above: Performed By: #### M G, URIC, RENAL #### [facility] [address] [address] [address] Hari Palmer UA RANDOM W/MICROSCOPICon BACTERIA SMALL Abnormal NONE SEEN [facility] Comment on above: Performed By: #### U AMIC #### [facility] [address] [address] [address] Hari Palmer Bilirubin Ql (U) Negative Normal NEGATIVE [facility] Comment on above: Performed By: #### U AMIC #### [facility] [address] [address] [address] Hari Palmer CAST NONE SEEN Normal NONE SEEN [facility] Comment on above: Performed By: #### U AMIC #### [facility] [address] [address] [address] Hari Palmer Clarity (U) CLEAR Normal CLEAR [facility] Comment on above: Performed By: #### U AMIC #### [facility] [address] [address] [address] Hari Palmer Color (U) LT. YELLOW Normal YELLOW [facility] Comment on above: Performed By: #### U AMIC #### [facility] [address] [address] [address] Hari Palmer Crystals LM Nom (Urine sed) NONE SEEN Normal NONE SEEN [facility] Comment on above: Performed By: #### U AMIC #### [facility] [address] [address] [address] Hari Palmer Epithelial cells LM Ql (Urine sed) MODERATE Abnormal NONE SEEN /RARE [facility] Comment on above: Performed By: #### U AMIC #### [facility] [address] [address] [address] Hari Palmer Glucose Ql (U) Negative Normal NEGATIVE [facility] Comment on above: Performed By: #### U AMIC #### [facility] [address] [place] [address] Dr. Hari Palmer Hemoglobin Ql (U) TRACE-INTACT Abnormal NEGATIVE [facility] Comment on above: Performed By: #### U AMIC #### [facility] [address] [address] [address] Hari Palmer Ketones Ql (U) Negative Normal NEGATIVE [facility] Comment on above: Performed By: #### U AMIC #### [facility] [address] [place] [address] Dr. Hari Palmer LEUKOCYTES Negative Normal NEGATIVE [facility] Comment on above: Performed By: #### U AMIC #### [facility] [address] [place] [address] Dr. Hari Palmer MUCOUS NONE SEEN Normal NONE SEEN [facility] Comment on above: Performed By: #### U AMIC #### [facility] Laboratory [address] [place] [address] Dr. Hari Palmer Nitrite Ql (U) Negative Normal NEGATIVE [facility] Comment on above: Performed By: #### U AMIC #### [facility] [address] [place] [address] Dr. Hari Palmer pH (U) 6.0 [pH] Normal 5-9 [facility] Comment on above: Performed By: #### U AMIC #### [facility] [address] [place] [address] Dr. Hari Palmer RBC 2-5 Abnormal 0-2 [facility] Comment on above: Performed By: #### U AMIC #### [facility] [address] [place] [address] Dr. Hari Palmer SPEC GRAVITY 1.010 Normal 1.005-<=1.02 5 [facility] Comment on above: Performed By: #### U AMIC #### [facility] [address] [place] [address] Dr. Hari Palmer UA PROTEIN Negative Normal NEGATIVE/ TRACE [facility] Comment on above: Performed By: #### U AMIC #### [facility] [address] [place] [address] Dr. Hari Palmer Urobilinogen Qn (U) 0.2 {Janice'U}/dL Normal 0.2 - 1. 0 [facility] Comment on above: Performed By: #### U AMIC #### [facility] [address] [place] [address] Dr. Hari Palmer WBC 2-5 Abnormal NONE SEEN [facility] Comment on above: Performed By: #### U AMIC #### [facility] [address] [address] [address] Hari Palmer URIC ACID SERUMon 09-01-2021 Urate [Mass/Vol] 4.9 mg/dL Normal 2.5-6.2 [facility] Comment on above: Performed By: #### U AMIC #### [facility] [address] [address] [address] Hari Palmer URINE T PROTEIN CREAT RATIOo n 09-01-2021 Protein (U) [Mass/Vol] 22.2 mg/dL Critically high <=12.0 [facility] Comment on above: Performed By: #### M G, URIC, RENAL #### [facility] [address] [place] [address] Dr. Hari Palmer UR PROT CREAT RAT 0.47 Normal [facility] Comment on above: Performed By: #### M G, URIC, RENAL #### [facility] [address] [place] [address] Dr. Hari Palmer URINE CREAT 46.89 mg/dL Normal 20.00-300.00 [facility] Comment on above: Performed By: #### M G, URIC, RENAL #### [facility] [address] [place] [address] Dr. Hari Palmer VITAMIN D 25 OHon 09-01-2021 VIT D 25-OH 40.5 ng/mL Normal [facility] Comment on above: Performed By: #### M G, URIC, RENAL #### [facility] [address] [place] [address] Dr. Hari Palmer VIT D RANGES SEE BELOW Normal [facility] Comment on above: Result Comment: <20 ng/mL Vit D deficient 20 - <30 ng/mL Vit D insufficient 30 - 100 ng/mL Vit D sufficient >100 ng/mL Potential Toxicity Performed By: #### M G, URIC, RENAL #### [facility] [address] [place] [address] Dr. Hari Palmer CNOVon 03-30-2021 CNOV Office Visit (NEPHMN ) ----- MANDEEP PURI ([id number]) 1975 F Date Time Provider Department 03/30/21 9:20 AM PERRI BARRETT NEPHMN During your visit today, we recorded the following information about you: Temperature Pulse Blood pressure Weight 98.2 degrees 75/minute 122/77 93 kg Height 1.549 m Perri Barrett MD 03/30/2021 10:25 AM Signed Mrs. 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 (more content not included)... Normal [facility] Urinalysison 03-30-2021 Bilirubin, Urine Negative Normal Negative Raffy oconnor [facility] Comment on above: Performed By: #### U A #### [address] [address] Clarity (U) Clear Normal Clear [facility] Comment on above: Performed By: #### U A #### [facility] [address] [address] Color (U) Colorless Critically abnormal Yellow [facility] Comment on above: Performed By: #### U A #### [facility] [address], [place] [address] Comments SEE COMMENT Normal [facility] Comment on above: Result Comment: Micr oscopic not warranted Performed By: #### U A #### [facility] [address] [address] Glucose Ql (U) Trace Critically abnormal Negative [facility] Comment on above: Performed By: #### U A #### [address] [phone] Hemoglobin/Blood,Ur Negative Normal Negative [facility] Comment on above: Performed By: #### U A #### [facility] [address] [phone] Ketones Ql (U) Negative Normal Negative [facility] Comment on above: Performed By: #### U A #### [facility] [address] [address] Leukest Negative Normal Negative [facility] Comment on above: Performed By: #### U A #### [facility] [address] [address] Nitrite Ql (U) Negative Normal Negative [facility] Comment on above: Performed By: #### U A #### [facility] [address], [place] [address] pH (U) 6.5 [pH] Normal 5.0-8.0 [facility] Comment on above: Performed By: #### U A #### [facility] [address], [place] [address] Protein, Urine Negative Normal Negative [facility] Comment on above: Performed By: #### U A #### [facility] [address] [address] Specific [place], Ur 1.008 Normal 1.005-1.030 [facility] Comment on above: Performed By: #### U A #### [facility] [address] [address] Urine Codi Comment SEE COMMENT Normal [facility] Comment on above: Result Comment: N/A Performed By: #### U A #### [facility] [address] Urobilinogen (U) [Mass/Vol] Negative Normal Negative [facility] Comment on above: Performed By: #### U A #### [address] [address] Coding Summary.on 04-21-2020 Coding Summary. CODING DATE: 020 [facility] STATUS: Home (Routine DC) PAYOR: [place] ADMIT DX: REASON FOR VISIT DX: Z20.828 [...] CphT Date Saved: 04/21/2020 05:17 pm Normal [facility] Physician Orderon 04-21-2020 Physician Order [id number] Normal [facility] Marci 04-12-2020 ALT [Catalytic activity/Vol] 14 U/L Normal 7 - 45 [facility] Comment on above: Result Comment: Kelsea ents treated with Sulfasalazine may generate falsely decreased results for ALT. Performed By: #### A LT #### [facility] [address] [place] [address] Ronald 04-12-2020 AST [Catalytic activity/Vol] 16 U/L Normal 9 - 39 [facility] Comment on above: Performed By: #### A ST #### [facility] [address] [place] [address] CREATININEon 04-12-2020 Creatinine [Mass/Vol] 2.83 mg/dL High 0.50 - 1.05 [facility] Comment on above: Performed By: #### C REAT #### [facility] [address] [place] [address] Creatinine [Mass/Vol] 18 mL/min/1.73m2 Abnormal >60 [facility] Comment on above: Performed By: #### C REAT #### [facility] [address] [place] [address] Creatinine [Mass/Vol] 22 mL/min/1.73m2 Abnormal >60 [facility] Comment on above: Result Comment: CALC ULATIONS OF ESTIMATED GFR ARE PERFORMED USING THE MDRD STUDY EQUATION FOR THE IDMS-TRACEABLE CREATININE METHODS. CLIN CHEM 2007;53:766-72 Performed By: #### C REAT #### [facility] [address] [place] [address] URIC ACIDon 04-12-2020 Urate [Mass/Vol] 5.2 mg/dL Normal 2.3 - 6.7 [facility] Comment on above: Result Comment: Beti puncture immediately after or during the administration of Metamizole may lead to falsely low results. Testing should be performed immediately prior to Metamizole dosing. Performed By: #### U DICK #### [facility] [address] [place] [address] URIC ACIDon 02-11-2020 Urate [Mass/Vol] 8.2 mg/dL High 2.3 - 6.7 [facility] Comment on above: Result Comment: Beti puncture immediately after or during the administration of Metamizole may lead to falsely low results. Testing should be performed immediately prior to Metamizole dosing. Performed By: #### U DICK #### [facility] [address] [place] [address] Cult,Urineon 08-04-2019 Cult,Urine Specimen Description .CLEAN CATCH URINE Special Requests NOT REPORTED Culture ESCHERICHIA COLI >[id number] CFU/ML Report Status FINAL 08/04/2019 SUSCEPTIBILITY Organism [...] Trimethoprim/Sulfa <=20 SUSCEPTIBLE Piperacillin/Tazobactam <=4 SUSCEPTIBLE Normal [facility] Comment on above: Performed By: #### D CITLALY, LIP, CMPX, TROPI, BNP, CDP, PT #### [facility] [address] [place] [address] Stave Block Splitter: Sami Dominguez MD Brain Natri. Peptideon 08-02 Natriuretic peptide B (Bld) [Mass/Vol] 152 pg/mL Normal <300 [facility] Comment on above: Result Comment: Pro- BNP results cannot be compared to BNP results. Performed By: #### D CITLALY, LIP, CMPX, TROPI, BNP, CDP, PT #### [facility] [address] [place] [address] Stave Block Splitter: Sami Dominguez MD Natriuretic peptide B (Bld) [Mass/Vol] Pro-BNP Reference Range: Normal [facility] Comment on above: Result Comment: Rule Out: <300 Parra Zone: Age <50 300-450 Age 50-75 300-900 Age >75 300-1800 Usually represents mild to moderate HF but other cardiopulmonary causes cannot be ruled out. Rule In: Age <50 >450 Age 50-75 >900 Age >75 >1800 Performed By: #### D CITLALY, LIP, CMPX, TROPI, BNP, CDP, PT #### [facility] [address] [place] [address] Stave Block Splitter: Sami Dominguez MD Brain Natriuretic Peptideon 08-02-2019 Natriuretic peptide B (Bld) [Mass/Vol] 152 pg/mL <300 [place] Comment on above: Pro-BNP results eric ot be compared to BNP results. Natriuretic peptide B (Bld) [Mass/Vol] Pro-BNP Reference Range: [place], [place] Comment on above: Rule Out: <300 Parra Zone: Age <50 300-450 Age 50-75 300-900 Age >75 300-1800 Usually represents mild to moderate HF but other cardiopulmonary causes cannot be ruled out. Rule In: Age <50 >450 Age 50-75 >900 Age >75 >1800 CBC Auto Differentialon 07-07 Basophils (Bld) [#/Vol] 0.00 10*3/uL [place] Basophils/100 WBC (Bld) 0 % 0 - 2 % [place] Differential Type NOT REPORTED [place] Eosinophils (Bld) [#/Vol] 0.08 10*3/uL [place] Eosinophils/100 WBC (Bld) 1 % 1 - 4 % [place] Erythrocyte distribution width (RBC) [Ratio] 13.2 % 11.8 - 14.4 % [place] Hematocrit (Bld) [Volume fraction] 33.7 % Low 36.3 - 47.1 % [place] Hemoglobin (Bld) [Mass/Vol] 10.7 g/dL Low 11.9 - 15.1 g/dL [place] Immature granulocytes (Bld) [#/Vol] 0 % 0 [place] Immature granulocytes (Bld) [#/Vol] 0.00 10*3/uL [place] Lymphocytes (Bld) [#/Vol] 0.90 10*3/uL Low [place] Lymphocytes/100 WBC (Bld) 12 % Low 24 - 43 % [place] MCH (RBC) [Entitic mass] 30.2 pg 25.2 - 33.5 pg [place] MCHC (RBC) [Mass/Vol] 31.8 g/dL 28.4 - 34.8 g/dL [place] MCV (RBC) [Entitic vol] 95.2 fL 82.6 - 102.9 fL [place] Monocytes (Bld) [#/Vol] 0.00 10*3/uL Low [place] Monocytes/100 WBC (Bld) 0 % Low 3 - 12 % [place] Morphology Ge[place] (Bld) [Interp] Normal [place] Platelet mean volume (Bld) [Entitic vol] 8.6 fL 8.1 - 13.5 fL [place] Platelets (Bld) [#/Vol] NOT REPORTED [place] Platelets (Bld) [#/Vol] 335 10*3/uL [place] RBC (Bld) [#/Vol] 3.54 10*6/uL Low 3.95 - 5.1 1 m/uL [place] RBC morphology finding Nom (Bld) NOT REPORTED [place] Segmented neutrophils/100 WBC (Bld) 87 % High 36 - 65 % [place] Segs Absolute 6.52 [place] WBC (Bld) [#/Vol] 7.5 10*3/uL [place] WBC (Bld) [#/Vol] 0.0 10*3/uL 0.0 per 10 0 WBC [place] WBC Morphology NOT REPORTED [place] CBC with Diffon 08-02-2019 Abs. Basophil 0.00 k/uL Normal 0.0-0.2 [facility] Comment on above: Performed By: #### D CITLALY, LIP, CMPX, TROPI, BNP, CDP, PT #### [facility] [address] [place] [address] Stave Block Splitter: Sami Dominguez MD Abs.Imm.Granulocyte 0.00 k/uL Normal 0.00-0.30 [facility] Comment on above: Performed By: #### D CITLALY, LIP, CMPX, TROPI, BNP, CDP, PT #### [facility] [address] [place], [place] [id number] Stave Block Splitter: Sami Dominguez MD Abs.Neutrophil (Seg) 6.52 k/uL Normal 1.50-8.10 [facility] Comment on above: Performed By: #### D CITLALY, LIP, CMPX, TROPI, BNP, CDP, PT #### [facility] [address] [place], [place] [address] Stave Block Splitter: Sami Dominguez MD Auto Diff Performed NOT REPORTED Normal [facility] Comment on above: Performed By: #### D CITLALY, LIP, CMPX, TROPI, BNP, CDP, PT #### [address] [place], [facility] Stave Block Splitter: Sami Dominguez MD Basophils/100 WBC (Bld) 0 % Normal 0-2 [facility] Comment on above: Performed By: #### D CITLALY, LIP, CMPX, TROPI, BNP, CDP, PT #### [address] [place], [facility]83 Stave Block Splitter: Sami Dominguez MD Eosinophils (Bld) [#/Vol] 0.08 10*3/uL Normal 0.00-0.44 [facility] Comment on above: Performed By: #### D CITLALY, LIP, CMPX, TROPI, BNP, CDP, PT #### [address] [place], [facility] Stave Block Splitter: Sami Dominguez MD Eosinophils/100 WBC (Bld) 1 % Normal 1-4 [facility] Comment on above: Performed By: #### D CITLALY, LIP, CMPX, TROPI, BNP, CDP, PT #### [address] [place], [facility] Stave Block Splitter: Sami Dominguez MD Erythrocyte distribution width (RBC) [Ratio] 13.2 % Normal 11.8-14.4 [facility] Comment on above: Performed By: #### D CITLALY, LIP, CMPX, TROPI, BNP, CDP, PT #### [facility] [address] [place] [id number] Stave Block Splitter: Sami Dominguez MD Hematocrit (Bld) [Volume fraction] 33.7 % Low 36.3-47.1 [facility] Comment on above: Performed By: #### D CITLALY, LIP, CMPX, TROPI, BNP, CDP, PT #### [facility] [address] [place], [facility] Stave Block Splitter: Sami Dominguez MD Hemoglobin (Bld) [Mass/Vol] 10.7 g/dL Low 11.9-15.1 [facility] Comment on above: Performed By: #### D CITLALY, LIP, CMPX, TROPI, BNP, CDP, PT #### [address] [place], [place] [address] Stave Block Splitter: Sami Dominguez MD Immature granulocytes (Bld) [#/Vol] 0 % Normal 0 [facility] Comment on above: Performed By: #### D CITLALY, LIP, CMPX, TROPI, BNP, CDP, PT #### [address] [place] [id number] Stave Block Splitter: Sami Dominguez MD Lymphocytes (Bld) [#/Vol] 0.90 10*3/uL Low 1.10-3.70 [facility] Comment on above: Performed By: #### D CITLALY, LIP, CMPX, TROPI, BNP, CDP, PT #### [facility] [address] [place] [id number] Stave Block Splitter: Sami Dominguez MD Lymphocytes/100 WBC (Bld) 12 % Low 24-43 [facility] Comment on above: Performed By: #### D CITLALY, LIP, CMPX, TROPI, BNP, CDP, PT #### [facility] [address] [place] [facility]83 Stave Block Splitter: Sami Dominguez MD MCH (RBC) [Entitic mass] 30.2 pg Normal 25.2-33.5 [facility] Comment on above: Performed By: #### D CITLALY, LIP, CMPX, TROPI, BNP, CDP, PT #### [facility] [address] [place] [facility]83 Stave Block Splitter: Sami Dominguez MD MCHC (RBC) [Mass/Vol] 31.8 g/dL Normal 28.4-34.8 [facility] Comment on above: Performed By: #### D CITLALY, LIP, CMPX, TROPI, BNP, CDP, PT #### [address] [place] [facility]83 Stave Block Splitter: Sami Dominguez MD MCV (RBC) [Entitic vol] 95.2 fL Normal 82.6-102.9 [facility] Comment on above: Performed By: #### D CITLALY, LIP, CMPX, TROPI, BNP, CDP, PT #### [address] [place] [facility] Stave Block Splitter: Sami Dominguez MD Monocytes (Bld) [#/Vol] 0.00 10*3/uL Low 0.10-1.20 [facility] Comment on above: Performed By: #### D CITLALY, LIP, CMPX, TROPI, BNP, CDP, PT #### [facility] [address] [place] [address] Dr. [place], [facility]83 Stave Block Splitter: Sami Dominguez MD Monocytes/100 WBC (Bld) 0 % Low 3-12 [facility] Comment on above: Performed By: #### D CITLALY, LIP, CMPX, TROPI, BNP, CDP, PT #### [address] [place], [facility]83 Stave Block Splitter: Sami Dominguez MD Morphology Geovany (Bld) [Interp] Normal Normal [facility] Comment on above: Performed By: #### D CITLALY, LIP, CMPX, TROPI, BNP, CDP, PT #### [facility] [address] [place] [address] Stave Block Splitter: Sami Dominguez MD Neutrophil (Seg) 87 % High 36-65 [facility] Comment on above: Performed By: #### D CITLALY, LIP, CMPX, TROPI, BNP, CDP, PT #### [facility] [address] [place] [address] Stave Block Splitter: Sami Dominguez MD NRBC Automated 0.0 per 100 WBC Normal 0.0 [facility] Comment on above: Performed By: #### D CITLALY, LIP, CMPX, TROPI, BNP, CDP, PT #### [facility] [address] [place], [facility]83 Stave Block Splitter: Sami Dominguez MD Platelet mean volume (Bld) [Entitic vol] 8.6 fL Normal 8.1-13.5 [facility] Comment on above: Performed By: #### D CITLALY, LIP, CMPX, TROPI, BNP, CDP, PT #### [address] [place] [address] Stave Block Splitter: Sami Dominguez MD Platelets (Bld) [#/Vol] NOT REPORTED Normal [facility] Comment on above: Performed By: #### D CITLALY, LIP, CMPX, TROPI, BNP, CDP, PT #### [facility] [address] [place] [address] Stave Block Splitter: Sami Dominguez MD Platelets (Bld) [#/Vol] 335 10*3/uL Normal 138-453 [facility] Comment on above: Performed By: #### D CITLALY, LIP, CMPX, TROPI, BNP, CDP, PT #### [facility] [address] [place] [address] Stave Block Splitter: Sami Dominguez MD RBC (Bld) [#/Vol] 3.54 10*6/uL Low 3.95-5.11 [facility] Comment on above: Performed By: #### D CITLALY, LIP, CMPX, TROPI, BNP, CDP, PT #### [facility] [address] [place] [facility]83 Stave Block Splitter: Sami Dominguez MD RBC morphology finding Nom (Bld) NOT REPORTED Normal [facility] Comment on above: Performed By: #### D CITLALY, LIP, CMPX, TROPI, BNP, CDP, PT #### [facility] [address] [place] [address] Stave Block Splitter: Sami Dominguez MD WBC (Bld) [#/Vol] 7.5 10*3/uL Normal 3.5-11.3 [facility] Comment on above: Performed By: #### D CITLALY, LIP, CMPX, TROPI, BNP, CDP, PT #### [facility] [address] [place], [facility]83 Stave Block Splitter: Sami Dominguez MD WBC Morphology NOT REPORTED Normal [facility] Comment on above: Performed By: #### D CITLALY, LIP, CMPX, TROPI, BNP, CDP, PT #### [address] [place], [facility]83 Stave Block Splitter: Sami Dominguez MD CTA CHEST ABDOMEN PELVIS [...] Yunier Yang MD 08/02/19 Final result Normal [facility] Moshe, Mhpn Incoming Radiant Results From naaya/Proacta - 08/02/2019 1:21 PM EDT EXAMINATION: CTA [...] recommended. Reference: J Am Danika Radiol 2013;10:675-681 [place], [place] EXAMINATION: CTA OF THE CHEST, ABDOMEN [...] and caliber without aneurysmal dilatation or dissection. [place], [place] No evidence for aneurysmal dilatation or dissection of the aorta or its branches. Findings most compatible with polycystic kidney disease. Subtle inflammation adjacent to the descending colon is suggestive of subtle colitis. No perforation or abscess formation. No free intraperitoneal air or fluid. 4.1 cm benign appearing ovarian cyst No follow-up imaging is recommended. Reference: J Am Danika Radiol 2013;10:675-681 [place], [place] Comp Metabolic Pr/rfx MGon 1 (cont.) Normal [facility] Comment on above: Result Comment: Aver age GFR for 40-49 years old: 99 mL/min/1.73sq m Chronic Kidney Disease: <60 mL/min/1.73sq m Kidney failure: <15 mL/min/1.73sq m eGFR calculated using average adult body mass. Additional eGFR calculator available at: http://www.ClearSaleing.CensorNet/multiple_crcl_2012.htm Performed By: #### D CITLALY, LIP, CMPX, TROPI, BNP, CDP, PT #### [facility] [address] [place], [place] [id number] Stave Block Splitter: Sami Dominguez MD Albumin [Mass/Vol] 4.4 g/dL Normal 3.5-5.2 [facility] Comment on above: Performed By: #### D CITLALY, LIP, CMPX, TROPI, BNP, CDP, PT #### [facility] [address] [place], [place] [id number] Stave Block Splitter: Sami Dominguez MD Albumin/Globulin [Mass ratio] 1.0 {ratio} Normal 1.0-2.5 [facility] Comment on above: Performed By: #### D CITLALY, LIP, CMPX, TROPI, BNP, CDP, PT #### [facility] [address] [place], [place] [id number] Stave Block Splitter: Sami Dominguez MD Alkaline Phos 98 U/L Normal 35-104 [facility] Comment on above: Performed By: #### D CITLALY, LIP, CMPX, TROPI, BNP, CDP, PT #### [facility] [address] [place], [place] [address] Stave Block Splitter: Sami Dominguez MD ALT [Catalytic activity/Vol] 16 U/L Normal 5-33 [facility] Comment on above: Performed By: #### D CITLALY, LIP, CMPX, TROPI, BNP, CDP, PT #### [facility] [address] [place], [place] [address] Stave Block Splitter: Sami Dominguez MD Anion gap [Moles/Vol] 18 mmol/L High 9-17 [facility] Comment on above: Performed By: #### D CITLALY, LIP, CMPX, TROPI, BNP, CDP, PT #### [facility] [address] [place] [address] Stave Block Splitter: Sami Dominguez MD AST [Catalytic activity/Vol] 18 U/L Normal <32 [facility] Comment on above: Performed By: #### D CITLALY, LIP, CMPX, TROPI, BNP, CDP, PT #### [facility] [address] [place], [place] [address] Stave Block Splitter: Sami Dominguez MD Bilirubin Ql (U) 0.31 mg/dL Normal 0.3-1.2 [facility] Comment on above: Performed By: #### D CITLALY, LIP, CMPX, TROPI, BNP, CDP, PT #### [facility] [address] [place], [place] [address] Stave Block Splitter: Sami Dominguez MD BUN/CRE Ratio 13 Normal 9-20 [facility] Comment on above: Performed By: #### D CITLALY, LIP, CMPX, TROPI, BNP, CDP, PT #### [facility] [address] [place], [place] [id number] Stave Block Splitter: Sami Dominguez MD Calcium [Mass/Vol] 9.7 mg/dL Normal 8.6-10.4 [facility] Comment on above: Performed By: #### D CITLALY, LIP, CMPX, TROPI, BNP, CDP, PT #### [facility] [address] [place] [address] Dr. [place], [place] [id number] Stave Block Splitter: Sami Dominguez MD Chloride [Moles/Vol] 95 mmol/L Low 98-107 [facility] Comment on above: Performed By: #### D CITLALY, LIP, CMPX, TROPI, BNP, CDP, PT #### [facility] [address] [place], [place] [id number] Stave Block Splitter: Sami Dominguez MD CO2 [Moles/Vol] 18 mmol/L Low 20-31 [facility] Comment on above: Performed By: #### D CITLALY, LIP, CMPX, TROPI, BNP, CDP, PT #### [facility] [address] [place] [address] Stave Block Splitter: Sami Dominguez MD Creatinine [Mass/Vol] 3.07 mg/dL High 0.50-0.90 [facility] Comment on above: Performed By: #### D CITLALY, LIP, CMPX, TROPI, BNP, CDP, PT #### [facility] [address] [place] [address] Stave Block Splitter: Sami Dominguez MD GFR, Amer 20 mL/min Low >60 [facility] Comment on above: Performed By: #### D CITLALY, LIP, CMPX, TROPI, BNP, CDP, PT #### [facility] [address] [place], [place] [id number] Stave Block Splitter: Sami Dominguez MD GFR,non Amer 17 mL/min Low >60 [facility] Comment on above: Performed By: #### D CITLALY, LIP, CMPX, TROPI, BNP, CDP, PT #### [address] [place], [place] [id number] Stave Block Splitter: Sami Dominguez MD Glucose [Mass/Vol] 89 mg/dL Normal 70-99 [facility] Comment on above: Performed By: #### D CITLALY, LIP, CMPX, TROPI, BNP, CDP, PT #### [address] [place], [place] [id number] Stave Block Splitter: Sami Dominguez MD Potassium [Moles/Vol] 3.9 mmol/L Normal 3.7-5.3 [facility] Comment on above: Performed By: #### D CITLALY, LIP, CMPX, TROPI, BNP, CDP, PT #### [address] [place], [place] [id number] Stave Block Splitter: Sami Dominguez MD Protein [Mass/Vol] 8.8 g/dL High 6.4-8.3 [facility] Comment on above: Performed By: #### D CITLALY, LIP, CMPX, TROPI, BNP, CDP, PT #### [address] [place] [address] Stave Block Splitter: Sami Dominguez MD Sodium [Moles/Vol] 131 mmol/L Low 135-144 [facility] Comment on above: Performed By: #### D CITLALY, LIP, CMPX, TROPI, BNP, CDP, PT #### [facility] [address] [place] [address] Stave Block Splitter: Sami Dominguez MD Staging: Normal [facility] Comment on above: Result Comment: Stag e 1: Some kidney damage normal GFR Stage 2: Mild kidney damage GFR 60-89 Stage 3: Moderate kidney damage GFR 30-59 Stage 4: Severe kidney damage GFR 15-29 Stage 5: Severe kidney damage GFR <15 ESRD - chronic treatment by dialysis or transplant Performed By: #### D CITLALY, LIP, CMPX, TROPI, BNP, CDP, PT #### [facility] [address] [place] [address] Stave Block Splitter: Sami Dominguez MD Urea nitrogen [Mass/Vol] 39 mg/dL High 6-20 [facility] Comment on above: Performed By: #### D CITLALY, LIP, CMPX, TROPI, BNP, CDP, PT #### [facility] [address] [place] [address] Stave Block Splitter: Sami Dominguez MD Comprehensive Metabolic Pane l w/ Reflex to MGon 08-02-2019 Albumin [Mass/Vol] 4.4 g/dL 3.5 - 5.2 g/dL [place] Albumin/Globulin [Mass ratio] 1.0 {ratio} [place] ALP [Catalytic activity/Vol] 98 U/L 35 - 104 U/L [place] ALT [Catalytic activity/Vol] 16 U/L 5 - 33 U/L [place] Anion gap [Moles/Vol] 18 mmol/L High 9 - 17 mmol/L [place] AST [Catalytic activity/Vol] 18 U/L <32 [place] Bilirubin Ql (U) 0.31 mg/dL 0.3 - 1.2 mg/dL [place] Bun/Cre Ratio 13 [place] Calcium [Mass/Vol] 9.7 mg/dL 8.6 - 10. 4 mg/dL [place] Chloride [Moles/Vol] 95 mmol/L Low 98 - 10 7 mmol/L [place] CO2 [Moles/Vol] 18 mmol/L Low 20 - 31 mmol/L [place] Creatinine [Mass/Vol] 3.07 mg/dL High 0.5 - 0.9 mg/dL [place] GFR 20 mL/min Low >60 [place] GFR Non- 17 mL/min Low >60 [place] Glucose [Mass/Vol] 89 mg/dL 70 - 99 mg/dL [place] Potassium [Moles/Vol] 3.9 mmol/L 3.7 - 5.3 mmol/L [place] Protein [Mass/Vol] 8.8 g/dL High 6.4 - 8.3 g/dL [place] Sodium [Moles/Vol] 131 mmol/L Low 135 - 144 mmol/L [place] Urea nitrogen [Mass/Vol] 39 mg/dL High 6 - 20 mg/dL [place] D-Dimer Teston 08-02-2019 D-Dimer Test 1.15 mg/L FEU High 0.19-0.50 [facility] Comment on above: Result Comment: Elevated [...] LIP, CMPX, TROPI, BNP, CDP, PT #### [facility] [address] [place] [address] Stave Block Splitter: Sami Dominguez MD D-Dimer, Quantitativeon -2 D-Dimer, Quant 1.15 [place] Comment on above: Elevated levels of [...] mmol/L High 0.5 - 1. 9 mmol/L [place] Lactic Acid, Sepsis 3.6 mmol/L High 0.5-1.9 [facility] Comment on above: Performed By: #### L ACDS #### [facility] [address] [place] [address] [place] [address] Stave Block Splitter: Sami Dominguez MD Lactic Acid, Sepsis, Whole Blood NOT REPORTED 0.5 - 1.9 mmol/L [place] Lactic Acid,Sep Wbld NOT REPORTED Normal 0.5-1.9 [facility] Comment on above: Performed By: #### L ACDS #### [address] [place] [address] Stave Block Splitter: Sami Dominguez MD Lactic Acidon 08-02-2019 Lactate [Moles/Vol] NOT REPORTED Normal 0.7-2.1 [facility] Comment on above: Performed By: #### D CITLALY, LIP, CMPX, TROPI, BNP, CDP, PT #### [facility] [address] [place] [address] Stave Block Splitter: Sami Dominguez MD Lactate [Moles/Vol] 1.0 mmol/L Normal 0.5-2.2 [facility] Comment on above: Performed By: #### D CITLALY, LIP, CMPX, TROPI, BNP, CDP, PT #### [facility] [address] [place] [address] Stave Block Splitter: Sami Dominguez MD Lactic Acid, Plasmaon 2018 Lactate [Moles/Vol] 1 mmol/L 0.5 - 2. 2 mmol/L [place] Lactic Acid, Whole Blood NOT REPORTED 0.7 - 2.1 mmol/L [place] Lipaseon 08-02-2019 Lipase [Catalytic activity/Vol] 38 U/L 13 - 60 U/L [place] Lipase [Catalytic activity/Vol] 38 U/L Normal 13-60 [facility] Comment on above: Performed By: #### D CITLALY, LIP, CMPX, TROPI, BNP, CDP, PT #### [facility] [address] [place] [address] Stave Block Splitter: Sami Dominguez MD Metabolic Panelon 08-02-2019 GFR/1.73 sq M predicted among non-blacks MDRD (S/P/Bld) [Vol rate/Area] [place], [place] Comment on above: Stage 1: Some [...] body mass. Additional eGFR calculator available at: http://www.ClearSaleing.CensorNet/multiple_crcl_2012.htm Microscopic Urinalysison Amorphous, UA NOT REPORTED None [place] Bacteria, UA 1+ Abnormal None [place] Casts UA NOT REPORTED /LPF [place] Crystals UA NOT REPORTED None /HPF [place] Epithelial Cells UA 2 TO 5 [place] Mucus, UA NOT REPORTED None [place] Other Observations UA NOT REPORTED NOT REQ. M [place] RBC (U) [#/Vol] None [place] Renal Epithelial, Urine NOT REPORTED 0 /HPF [place] Trichomonas, UA NOT REPORTED None [place] WBC, UA 50 TO 100 [place] Yeast, UA NOT REPORTED None [place] Otheron 08-02-2019 Interpretation and review of laboratory results Abnormal [place] Interpretation and review of laboratory results Abnormal [place] PTon 08-02-2019 INR Coag (PPP) [Relative time] 1.0 {INR} Normal 0.9-1.2 [facility] Comment on above: Performed By: #### D CITLALY, LIP, CMPX, TROPI, BNP, CDP, PT #### [facility] [address] [place] [address] Stave Block Splitter: Sami Dominguez MD PT Coag (PPP) [Time] 10.0 s Normal 9.7-12.2 [facility] Comment on above: Performed By: #### D CITLALY, LIP, CMPX, TROPI, BNP, CDP, PT #### [facility] [address] [place] [address] Stave Block Splitter: Sami Dominguez MD Protime-INRon 08-02-2019 INR Coag (PPP) [Relative time] 1.0 {INR} [place] PT Coag (PPP) [Time] 10 s [place] Troponinon 08-02-2019 Troponin I.cardiac [Mass/Vol] [place] Comment on above: Reference Range: <0.03 [...] Troponin I.cardiac [Mass/Vol] NOT REPORTED Normal 0-14 [facility] Comment on above: Performed By: #### D CITLALY, LIP, CMPX, TROPI, BNP, CDP, PT #### [facility] [address] [place] [address] Stave Block Splitter: Sami Dominguez MD Troponin I.cardiac [Mass/Vol] ng/mL Normal <0.03 [facility] Comment on above: Result Comment: Trop onin T results cannot be compared to Troponin-I results. Performed By: #### D CITLALY, LIP, CMPX, TROPI, BNP, CDP, PT #### [facility] [address] [place], [place] [id number] Stave Block Splitter: Sami Dominguez MD Troponin I.cardiac [Mass/Vol] Normal [facility] Comment on above: Result Comment: Refe [...] LIP, CMPX, TROPI, BNP, CDP, PT #### [facility] [address] [place] [address] Stave Block Splitter: Sami Dominguez MD Troponin I.cardiac [Mass/Vol] [place] Comment on above: Reference Range: <0.03 [...] Troponin I.cardiac [Mass/Vol] NOT REPORTED Normal 0-14 [facility] Comment on above: Performed By: #### D CITLALY, LIP, CMPX, TROPI, BNP, CDP, PT #### [facility] [address] [place] [address] Stave Block Splitter: Sami Dominguez MD Troponin I.cardiac [Mass/Vol] ng/mL Normal <0.03 [facility] Comment on above: Result Comment: Trop onin T results cannot be compared to Troponin-I results. Performed By: #### D CITLALY, LIP, CMPX, TROPI, BNP, CDP, PT #### [facility] [address] [place] [address] Stave Block Splitter: Sami Dominguez MD Troponin I.cardiac [Mass/Vol] Normal [facility] Comment on above: Result Comment: Refe [...] LIP, CMPX, TROPI, BNP, CDP, PT #### [facility] [address] [place] [address] Stave Block Splitter: Sami Dominguez MD Troponin T.cardiac [Mass/Vol] ug/L <0.03 ng/mL [place] Comment on above: Troponin T results c annot be compared to Troponin-I results. Troponin T.cardiac [Mass/Vol] ug/L <0.03 ng/mL [place] Comment on above: Troponin T results c annot be compared to Troponin-I results. Troponin, High Sensitivity NOT REPORTED 0 - 14 ng/L [place] Troponin, High Sensitivity NOT REPORTED 0 - 14 ng/L [place] UA w/Reflex Cultureon 2018 Acetoacetic Acid,Ur Negative Normal NEG [facility] Comment on above: Performed By: #### D CITLALY, LIP, CMPX, TROPI, BNP, CDP, PT #### [facility] [address] [place] [address] Stave Block Splitter: Sami Dominguez MD Bilirubin, SemiQt,Ur Negative Normal NEG [facility] Comment on above: Performed By: #### D CITLALY, LIP, CMPX, TROPI, BNP, CDP, PT #### [facility] [address] [place], [place] [id number] Stave Block Splitter: Sami Dominguez MD Color (U) YELLOW Normal YEL [facility] Comment on above: Performed By: #### D CITLALY, LIP, CMPX, TROPI, BNP, CDP, PT #### [facility] [address] [place], [place] [id number] Stave Block Splitter: Sami Dominguez MD Comment NOT REPORTED [facility] Comment on above: Performed By: #### D CITLALY, LIP, CMPX, TROPI, BNP, CDP, PT #### [address] [place], [place] [id number] Stave Block Splitter: Sami Dominguez MD Glucose Ql (U) Negative Normal [facility] Comment on above: Performed By: #### D CITLALY, LIP, CMPX, TROPI, BNP, CDP, PT #### [address] [place], [place] [phone] Stave Block Splitter: Sami Dominguez MD Hemoglobin, Ur 1+ Abnormal [facility] Comment on above: Performed By: #### D CITLALY, LIP, CMPX, TROPI, BNP, CDP, PT #### [address] [place], [facility] Stave Block Splitter: Sami Dominguez MD Leukocyte esterase Test strip Ql (U) MODERATE Abnormal NEG [facility] Comment on above: Performed By: #### D CITLALY, LIP, CMPX, TROPI, BNP, CDP, PT #### [facility] [address] [place], [place] [id number] Stave Block Splitter: Sami Dominguez MD Nitrite,Ur Negative Normal [facility] Comment on above: Performed By: #### D CITLALY, LIP, CMPX, TROPI, BNP, CDP, PT #### [facility] [address] [place] [address] Stave Block Splitter: Sami Dominguez MD pH (U) 6.0 [pH] Normal 5.0-9.0 [facility] Comment on above: Performed By: #### D CITLALY, LIP, CMPX, TROPI, BNP, CDP, PT #### [facility] [address] [place] [address] Stave Block Splitter: Sami Dominguez MD Protein Ql (U) TRACE Abnormal NEG [facility] Comment on above: Performed By: #### D CITLALY, LIP, CMPX, TROPI, BNP, CDP, PT #### [facility] [address] [place] [place] [address] Stave Block Splitter: Sami Dominguez MD Specific gravity (U) [Rel density] 1.010 Normal 1.010-1.020 [facility] Comment on above: Performed By: #### D CITLALY, LIP, CMPX, TROPI, BNP, CDP, PT #### [address] [place] [address] Stave Block Splitter: Sami Dominguez MD Turbidity CLEAR Normal CLEAR [facility] Comment on above: Performed By: #### D CITLALY, LIP, CMPX, TROPI, BNP, CDP, PT #### [address] [place] [address] Stave Block Splitter: Sami Dominguez MD Urobilinogen,Ur Normal Normal NORM [facility] Comment on above: Performed By: #### D CITLALY, LIP, CMPX, TROPI, BNP, CDP, PT #### [facility] [address] [place] [address] Stave Block Splitter: Sami Dominguez MD Urinalysis Reflex to Culture on 08-02-2019 Bilirubin Urine Negative NEGATIVE [facility], [place] Color, UA YELLOW YELLOW [facility], [place] Glucose, Ur Negative NEGATIVE [place] Ketones Ql (U) Negative NEGATIVE [place] Leukocyte esterase Test strip Ql (U) MODERATE Abnormal NEGATIVE [place] Nitrite, Urine Negative NEGATIVE [place] pH, UA 6.0 [place] Protein (U) [Mass/Vol] TRACE Abnormal NEGATIVE [place] Specific [place], UA 1.010 [place] Turbidity UA CLEAR CLEAR [place] Urinalysis Comments NOT REPORTED [place], [place] Urine Hgb 1+ Abnormal NEGATIVE [place] Urobilinogen, Urine Normal Normal [place] Urinalysis,Microon 9 ----- Normal [facility] Comment on above: Performed By: #### D CITLALY, LIP, CMPX, TROPI, BNP, CDP, PT #### [address] [place] [address] Stave Block Splitter: Sami Dominguez MD Amorphous sediment LM Ql (Urine sed) NOT REPORTED Normal [facility] Comment on above: Performed By: #### D CITLALY, LIP, CMPX, TROPI, BNP, CDP, PT #### [address] [place] [address] Stave Block Splitter: Sami Dominguez MD Bacteria LM.HPF (Urine sed) [#/Area] 1+ Abnormal [facility] Comment on above: Performed By: #### D CITLALY, LIP, CMPX, TROPI, BNP, CDP, PT #### [address] [place] [address] Stave Block Splitter: Sami Dominguez MD Casts LM.LPF (Urine sed) [#/Area] NOT REPORTED Normal [facility] Comment on above: Performed By: #### D CITLALY, LIP, CMPX, TROPI, BNP, CDP, PT #### [address] [place] [address] Stave Block Splitter: Sami Dominguez MD Crystals LM Nom (Urine sed) NOT REPORTED Normal NONE [facility] Comment on above: Performed By: #### D CITLALY, LIP, CMPX, TROPI, BNP, CDP, PT #### [facility] [address] [place] [address] Stave Block Splitter: Sami Dominguez MD Epithelial cells LM.HPF (Urine sed) [#/Area] 2 TO 5 Normal 0-25 [facility] Comment on above: Performed By: #### D CITLALY, LIP, CMPX, TROPI, BNP, CDP, PT #### [facility] [address] [place], [place] [id number] Stave Block Splitter: Sami Dominguez MD Epithelial, Renal NOT REPORTED Normal 0 [facility] Comment on above: Performed By: #### D CITLALY, LIP, CMPX, TROPI, BNP, CDP, PT #### [address] [place] [address] Stave Block Splitter: Sami Dominguez MD Mucus Strands NOT REPORTED Normal [facility] Comment on above: Performed By: #### D CITLALY, LIP, CMPX, TROPI, BNP, CDP, PT #### [address] [place] [address] Stave Block Splitter: Sami Dominguez MD Other Observations NOT REPORTED Normal NREQ [facility] Comment on above: Performed By: #### D CITLALY, LIP, CMPX, TROPI, BNP, CDP, PT #### [facility] [address] [place] [address] [place] [address] Stave Block Splitter: Sami Dominguez MD RBC (U) [#/Vol] None Normal 0-2 [facility] Comment on above: Performed By: #### D CITLALY, LIP, CMPX, TROPI, BNP, CDP, PT #### [facility] [address] [place], [place] [phone] Stave Block Splitter: Sami Dominguez MD Trichomonas NOT REPORTED Normal [facility] Comment on above: Performed By: #### D CITLALY, LIP, CMPX, TROPI, BNP, CDP, PT #### [facility] [address] [place], [place] [id number] Stave Block Splitter: Sami Dominguez MD WBC (U) [#/Vol] 50 TO 100 Normal 0-5 [facility] Comment on above: Performed By: #### D CITLALY, LIP, CMPX, TROPI, BNP, CDP, PT #### [facility] [address] [place] [id number] Stave Block Splitter: Sami Dominguez MD Yeast LM Ql (Urine sed) NOT REPORTED Normal NONE [facility] Comment on above: Performed By: #### D CITLALY, LIP, CMPX, TROPI, BNP, CDP, PT #### [facility] [address] [place] [id number] Stave Block Splitter: Sami Dominguez MD XR CHEST PORTABLEon 08-02-20 [...] Cullen Ngo MD 08/02/19 Final result Normal [facility] EXAMINATION: ONE XRA Y VIEW OF THE CHEST 08/02/2019 12:59 pm COMPARISON: None. HISTORY: ORDERING SYSTEM PROVIDED HISTORY: CP TECHNOLOGIST PROVIDED HISTORY: CP FINDINGS: Heart size and pulmonary vessels are within normal limits. Lungs are clear. No focal infiltrates or significant pleural effusions are seen. There is no acute osseous abnormality. Monitor leads overlie the chest. [facility], [place] No acute cardiopulmo nary process. [facility], [place] Moshe, [facility] Incoming Radiant Results From [facility]/Proacta - 08/02/2019 1:10 PM EDT EXAMINATION: ONE [...] the chest. IMPRESSION: No acute cardiopulmonary process. [facility] Social History Date Type Detail Facility Start: 06-05-2022 End: 06-20-2022 Tobacco smoking status NHIS Never smoked tobacco (finding) [facility] Start: 1975 Sex Assigned At Female F [facility] Tobacco smoking status NHIS Unknown if ever smoked [facility] Sex Assigned At Not on file [facility]igned At Sex Assigned At [facility] [employer] Other Vital Signs Date Time Vital Sign Value Performing Clinician Facility 03-15-2024 17:34-0400 Body height 157.48 cm RAM CAR OPERATOR Andreia Jerry Work Phone: [facility] 03-15-2024 17:34-0400 Body mass index (BMI) [Ratio] 31.8 kg/m2 RAM CAR OPERATOR Andreia Jerry Work Phone: [facility] 03-15-2024 17:34-0400 Body temperature 100.3 [degF] RAM CAR OPERATOR Andreia Jerry Work Phone: [facility] 03-15-2024 17:34-0400 Body weight 78.92 kg RAM CAR OPERATOR Andreia Jerry Work Phone: [facility] 03-15-2024 17:34-0400 Diastolic blood pressure 79 mm[Hg] RAM CAR OPERATOR Andreia Jerry Work Phone: [facility] 03-15-2024 17:34-0400 Heart rate 88 /min RAM CAR OPERATOR Andreia Jerry Work Phone: [facility] 03-15-2024 17:34-0400 Respiratory rate 18 /min RAM CAR OPERATOR Andreia Jerry Work Phone: [facility] 03-15-2024 17:34-0400 SaO2% (BldA) [Mass fraction] 96 % RAM CAR OPERATOR Andreia Jerry Work Phone: [facility] 03-15-2024 17:34-0400 Systolic blood pressure 121 mm[Hg] RAM CAR OPERATOR Andreia Jerry Work Phone: [facility] 07-30-2022 17:40-0400 Body height 157.48 cm Yaneth Toni Other [employer] Other 07-30-2022 17:40-0400 Body mass index (BMI) [Ratio] 36.69 kg/m2 Yaneth Toni Other [employer] Other 07-30-2022 17:40-0400 Body temperature 97.4 [degF] Yaneth Toni Other [facility] Other 07-30-2022 17:40-0400 Body weight 90.99 kg Yaneth Toni Other [employer] Other 07-30-2022 17:40-0400 Diastolic blood pressure 85 mm[Hg] Yaneth Toni Other [employer] Other 07-30-2022 17:40-0400 Respiratory rate 18 /min Yaneth Toni Other [employer] Other 07-30-2022 17:40-0400 SaO2% (BldA) [Mass fraction] 99 % Yaneth Toni Other [employer] Other 07-30-2022 17:40-0400 Systolic blood pressure 124 mm[Hg] Yaneth Toni Other [employer] Other 07-03-2022 09:45-0400 Body height 157.48 cm Estefania Vo Other [employer] Other 07-03-2022 09:45-0400 Body mass index (BMI) [Ratio] 36.76 kg/m2 Estefania Vo Other [employer] Other 07-03-2022 09:45-0400 Body temperature 97 [degF] Estefania Vo Other [employer] Other 07-03-2022 09:45-0400 Body weight 91.17 kg Estefania Vo Other [employer] Other 07-03-2022 09:45-0400 Diastolic blood pressure 60 mm[Hg] Estefania Vo Other [employer] Other 07-03-2022 09:45-0400 SaO2% (BldA) [Mass fraction] 99 % Estefania Vo Other [employer] Other 07-03-2022 09:45-0400 Systolic blood pressure 110 mm[Hg] Estefania Vo Other [employer] Other 06-20-2022 16:10-0400 Diastolic blood pressure 68 mm[Hg] DO Ming Alexis Work Phone: [facility] 06-20-2022 16:10-0400 Heart rate 69 /min DO Ming Alexis Work Phone: [facility] 06-20-2022 16:10-0400 Respiratory rate 18 /min DO Ming Alexis Work Phone: [facility] 06-20-2022 16:10-0400 SaO2% (BldA) [Mass fraction] 100 % DO Ming Espinoza Work Phone: [facility] 06-20-2022 16:10-0400 Systolic blood pressure 126 mm[Hg] DO Ming Espinoza Work Phone: [facility] 06-20-2022 13:15-0400 Body height 157.48 cm DO Ming Espinoza Work Phone: [facility] 06-20-2022 13:15-0400 Body temperature 98.6 [degF] DO Ming Espinoza Work Phone: [facility] 06-20-2022 13:15-0400 Body weight 91.5 kg DO Ming Espinoza Work Phone: [facility] 06-18-2022 10:45-0400 Diastolic blood pressure 79 mm[Hg] DO Ming Espinzoa Work Phone: [facility] 06-18-2022 10:45-0400 Heart rate 66 /min DO Ming Espinoza Work Phone: [facility] 06-18-2022 10:45-0400 Respiratory rate 16 /min DO Ming Espinoza Work Phone: [facility] 06-18-2022 10:45-0400 SaO2% (BldA) [Mass fraction] 100 % DO Ming Espinoza Work Phone: [facility] 06-18-2022 10:45-0400 Systolic blood pressure 130 mm[Hg] DO Ming Espinoza Work Phone: [facility] 06-18-2022 08:08-0400 Body mass index (BMI) [Ratio] 37.8 kg/m2 DO Ming Espinoza Work Phone: [facility] 06-18-2022 07:41-0400 Body height 157.48 cm DO Ming Espinoza Work Phone: [facility] 06-18-2022 07:41-0400 Body weight 93.89 kg DO Ming Espinoza Work Phone: [facility] 06-18-2022 06:26-0400 Body temperature 98.5 [degF] DO Ming Espinoza Work Phone: [facility] 05-30-2022 11:00-0400 Body height 157.48 cm Jesus Parham Other [employer] Other 05-30-2022 11:00-0400 Body mass index (BMI) [Ratio] 36.76 kg/m2 Jesus Parham Other [employer] Other 05-30-2022 11:00-0400 Body temperature 97.6 [degF] Jesus Parham Other [employer] Other 05-30-2022 11:00-0400 Body weight 91.17 kg Jesus Parham Other [employer] Other 05-30-2022 11:00-0400 Diastolic blood pressure 76 mm[Hg] Jesus Parham Other [employer] Other 05-30-2022 11:00-0400 SaO2% (BldA) [Mass fraction] 98 % Jesus Parham Other [employer] Other 05-30-2022 11:00-0400 Systolic blood pressure 128 mm[Hg] Jesus Parham Other [employer] Other 05-02-2022 14:40-0400 Body height 157.48 cm Yaneth Muñoz Other [employer] Other 05-02-2022 14:40-0400 Body mass index (BMI) [Ratio] 36.76 kg/m2 Yaneth Toni Other [employer] Other 05-02-2022 14:40-0400 Body temperature 97.7 [degF] Yaneth Toni Other [employer] Other 05-02-2022 14:40-0400 Body weight 91.17 kg Yaneth Toni Other [employer] Other 05-02-2022 14:40-0400 Diastolic blood pressure 88 mm[Hg] Yaneth Toni Other [employer] Other 05-02-2022 14:40-0400 Respiratory rate 18 /min Yaneth Toni Other [employer] Other 05-02-2022 14:40-0400 SaO2% (BldA) [Mass fraction] 98 % Yaneth Toni Other [employer] Other 05-02-2022 14:40-0400 Systolic blood pressure 121 mm[Hg] Yaneth Toni Other [employer] Other 04-30-2022 10:10-0400 Body height 157.48 cm Dipika Shantell Other [employer] Other 04-30-2022 10:10-0400 Body mass index (BMI) [Ratio] 37.86 kg/m2 Dipika Shantell Other [employer] Other 04-30-2022 10:10-0400 Body temperature 97.4 [degF] Dipika Stinson Other [employer] Other 04-30-2022 10:10-0400 Body weight 93.9 kg Dipika Stinson Other [employer] Other 04-30-2022 10:10-0400 Diastolic blood pressure 80 mm[Hg] Dipika Stinson Other [employer] Other 04-30-2022 10:10-0400 Respiratory rate 16 /min Dipika Stinson Other [employer] Other 04-30-2022 10:10-0400 SaO2% (BldA) [Mass fraction] 100 % Dipika Stinson Other [employer] Other 04-30-2022 10:10-0400 Systolic blood pressure 117 mm[Hg] Dipika Stinson Other [employer] Other 04-01-2022 09:13-0400 Diastolic blood pressure 62 mm[Hg] DO Ming Alexis Work Phone: [facility] 04-01-2022 09:13-0400 Heart rate 83 /min DO Ming Alexis Work Phone: [facility] 04-01-2022 09:13-0400 Respiratory rate 16 /min DO Ming Alexis Work Phone: [facility] 04-01-2022 09:13-0400 SaO2% (BldA) [Mass fraction] 97 % DO Ming Alexis Work Phone: [facility] 04-01-2022 09:13-0400 Systolic blood pressure 101 mm[Hg] DO Ming Alexis Work Phone: [facility] 04-01-2022 07:23-0400 Body height 157.48 cm DO Ming Espinoza Work Phone: [facility] 04-01-2022 07:23-0400 Body mass index (BMI) [Ratio] 37.8 kg/m2 DO Ming Espinoza Work Phone: [facility] 04-01-2022 07:23-0400 Body temperature 97.8 [degF] DO Ming Espinoza Work Phone: [facility] 04-01-2022 07:23-0400 Body weight 93.89 kg DO Ming Espinoza Work Phone: [facility] 12-06-2021 16:20-0500 Body height 157.48 cm Yaneth Toni Other [employer] Other 12-06-2021 16:20-0500 Body mass index (BMI) [Ratio] 37.86 kg/m2 Yaneth Toni Other [employer] Other 12-06-2021 16:20-0500 Body weight 93.9 kg Yaneth Toni Other [employer] Other 12-06-2021 16:20-0500 Diastolic blood pressure 89 mm[Hg] Yaneth Toni Other [employer] Other 12-06-2021 16:20-0500 Respiratory rate 18 /min Yaneth Toni Other [employer] Other 12-06-2021 16:20-0500 SaO2% (BldA) [Mass fraction] 97 % Yaneth Toni Other [employer] Other 12-06-2021 16:20-0500 Systolic blood pressure 134 mm[Hg] Yaneth Toni Other [facility] [employer] Other 08-02-2019 16:35-0400 Body Temperature 99.3 [degF] Vidal Peguero [facility] 08-02-2019 16:27-0400 Pulse (Heart Rate) 110 /min Vidal Madrigal [facility], [place] 08-02-2019 16:27-0400 Pulse Oximetry 98 % [facility] [place] 08-02-2019 16:27-0400 Respiratory Rate 14 /min [facility] 08-02-2019 16:16-0400 BP Diastolic 56 mm[Hg] [facility] [place] 08-02-2019 16:16-0400 BP Systolic 97 mm[Hg] [facility] [place] 08-02-2019 14:59-0400 BMI (Body Mass Index) 37.79 kg/m2 [facility] [place] 08-02-2019 14:59-0400 Body weight 90.72 kg [facility] [place] 08-02-2019 14:59-0400 Height 154.9 cm [place] Clinical Notes 05-17-2020 to 03-25-2024 Note Date & Type Note Facility 03-25-2024 Note Patient called, stat es PCP stopped Bactrim and started Keflex for E-coli in urine. On 500 mg tid x 7 days. Advised to hydrate well and get labs, repeat urine culture once completed. Voiced understanding. [facility] 03-16-2024 Note Patient called benigno borrero she is currently being treated for a UTI with bactrim BID for 7 days. [facility] 02-25-2024 Note Received a call from the patient regarding the non-compliant lab letter. Explained to the patient that we had gotten some labs on her but not a CMP or BMP. Patient stated that she has always gotten her labs drawn at [facility]. She will be getting labs drawn tomorrow and she will make sure that the draw the correct labs and have the results sent to us. [facility] 12-23-2023 Note 12/23/23 Chief Complaint Patient presents with Kidney Follow-up Pt has questions about her lab work. PCP: Ming Espinoza MD Txp Referring: Yaneth Muñoz [facility]: [facility] - [place], [place] - [address] [place] [address] [place] [address] [place] [address] [id number] - [place], [place] - [address] [facility] [address] [address] [facility] [place], [place] - [address] [facility] [address] [facility] [address] Subjective Visit Vitals BP 116/73 (BP Location: [...] Review Audit Reviewed by Trupti Sanchez MA (Leather [employer]) on 12/23/23 at 1430 Medication Order Taking? Sig Documenting Provider Last Dose Status amLODIPine (Norvasc) 10 mg tablet [id number] Take 1 tablet (10 mg) by mouth in the morning. Aguila Parrish MD 10/24/23 235 bumetanide (Bumex) 2 mg tablet [id number] Take 1 tablet (2 mg) by mouth in the morning. Patient not taking: Reported on 11/08/2022 Aguila Parrish MD 10/25/22 2359 docusate sodium (Colace) 100 mg capsule [id number] Take 1 capsule (100 mg) by mouth in the morning and at bedtime. Patient not taking: Reported on 09/01/2023 Paty Ansari NP Active DULoxetine (Cymbalta) [address] capsule [id number] Yes Take 1 capsule every day by oral route. Historical ProviderMD Taking Active Envarsus XR 1 mg tablet ER [id number] Yes TAKE 3 TABLETS BY MOUTH ONCE DAILY IN THE MORNING. TAKE ALONG WITH 0.75 MG TABLETS DIRECTED FOR TOTAL DOSE UP TO 4.5 MG PER DAY. Patient taking differently: Take 2 mg by mouth in the morning. Aguila Parrish MD Taking Active famotidine (Pepcid) 20 mg tablet [id number] Yes Take 1 tablet (20 mg) by mouth in the morning. Patient taking differently: Take 20 mg by mouth if needed. Augila Parrish MD Taking Active febuxostat (Uloric) 40 mg tablet [id number] Take 0.5 tablets every day by oral route. Historical ProviderMD Active ferrous sulfate 325 (65 Fe) MG tablet [id number] No Take 65 mg by mouth every other day. Historical ProviderMD Not Taking Active fish oil (Greenwood-3) 60-90-500 mg capsule [id number] No Take 2 capsules (1,000 mg) by mouth in the morning and at bedtime. Patient not taking: Reported on 12/23/2023 Sujit Bernal MD Not Taking Active Levemir FlexPen 100 unit/mL (3 mL) pen [id number] No INJECT 12 UNITS SUBCUTANEOUS IN AM 30 DAYS Historical ProviderMD Not Taking Flag for Review magnesium oxide (Mag-Ox) 400 mg (241.3 mg magnesium) tablet [id number] Yes TAKE 2 TABLETS BY MOUTH IN THE MORNING AND 2 TABLETS AT BEDTIME Nelson Davies MD Taking Active mycophenolate (Myfortic) 180 mg EC tablet [id number] Yes Take 4 tablets (720 mg) by mouth in the morning and at bedtime. Aguila Parrish MD Taking Active oxyCODONE-acetaminophen (Percocet) 5-325 mg tablet [id number] Take 1 tablet by mouth every 6 (six) hours if needed for severe pain (8-10 pain score) for up to 20 doses. Patient not taking: Reported on 09/01/2023 Paty Ansari NP Active potassium chloride CR (Klor-Con M20) 20 mEq ER tablet [id number] Yes Take 1 tablet (20 mEq) by mouth in the morning. Do not crush or chew. Andrea Elizondo MD Taking Active pravastatin (Pravachol) 40 mg tablet [id number] Yes Take 1 tablet (40 mg) by mouth at bedtime. Patient taking differently: Take 40 mg by mouth at bedtime. 40 mg 4 times a week. Fri Sat Kevin Raymond MD Taking Active Immunization History Administered Date(s) Administered Info Sars-Cov-2 Vaccination 10/13/2021 Patient Active Problem List Diagnosis Anxiety COVID-19 Depressive disorder Gastroesophageal reflux disease Gout Primary hypertension Multiple congenital cysts of kidney Stage 4 chronic kidney disease ([facility]) Encounter for aftercare following kidney transplant Immunosuppressed status ([facility]) Hyperuricemia Metabolic acidosis Bilateral lower [...] Smokeless tobacco: Neve (more content not included)... [facility] 10-02-2023 Note Per phone order Tyler sorto MD, increase Kdur from 10meq every day to 20meq every day due to K 3.2 on 09/26/23. Pt informed and verbalized understanding. Amiloride removed from her MAR as she reported in July she is not taking and reconfirmed today. [facility] 09-01-2023 Note ---- Attestation signed by Sujit [...] making adequate urine output with no proteinuria. [place] kidneys with adult polycystic kidney disease BK [...] for dysphoric moo (more content not included)... [facility] 11-01-2023 Note For K-level of 3.4, left VM to start Kdur [address] Dolores anderson. [facility] 07-24-2023 Note PT reports not lindsay ating the Amiloride with daily watery diarrhea (no longer formed) x 1 since starting medication with nausea and indigestion/acid reflux aggravated at times even with water. Pt will complete FU CMP and hold this medication pending review with [place] transplant provider. Advised her DSA collection is due as well and she verbalized understanding. Denies fever, chills or being around persons known to be ill. [facility] 07-24-2023 Note Per Shelly x 7686 BM P specimen not available. Notified Dolores FIERRO by phone and per his phone order, will repeat this labs in 7-10 days and pt was notified by phone and she verbalized understanding. Pt needs copy of her standing lab order. Will prepare for her pickup. [facility] 07-24-2023 Note Per phone order Minerva morel MD, discontinue amiloride due to side effects and recheck her CMP in 2 weeks as serum K may drop. This coordinator spoke with Ramila victor in lab to complete CMP today. DSA reentered for next lab draw. Pt notified by phone and verbalized understanding. [facility] 07-17-2023 Note Reviewed todays labs in person with Guillermo FIERRO and per his verbal order, pt should stop the oral potassium daily dosing and resume the Amiloride 5mg every day dosing with FU labs in one week to check for elevation in potassium. Pt verbalized understanding by phone and her RV will be rescheduled before the end of the year with [place] transplant by clinic [facility] M[facility]. Per Dolores FIERRO, the pt may discontinue her Prednisone 5mg every other day dosing and she acknowledged. Tac pending. [facility] 07-16-2023 Note Pt reports stopping Amiloride 5mg every day and starting Potassium 20meq every day & Ozempic 1mg subcutaneous weekly per PCP with improved glucose control. Monitors BP and no concerns. She will present to lab tomorrow for testing. Pt agrees and verbalized understanding. Pt to located her standing lab order for use @ [facility] prn. [facility] 07-16-2023 Note Reviewed by phone wi th Dolores MD pt input about her medication changes by PCP including stopping Amiloride. agreed to reschedule her 07/18 RV and review labs tomorrow by phone. Clinic [place] team informed to reschedule pt. [facility] 07-10-2023 Note Returned 0816 voicem ail to pt asking about dental work antibiotic prophylaxis. Confirmed with pt no allergies to antibiotics and advised to take Amoxicillin 2 grams PO 30-60 minutes prior to dental work or cleanings and she verbalized understanding. PT will contact her dentist for RX she stated. [facility] 06-17-2023 Note Returned patients ca ll regarding local pharmacy informing her of a DDI Recommended to patient to take Crestor in the evening and Magnesium during the day (or at least 2 hours apart) to avoid decreased absorption due to DDI Liam Viveros PharmD Candidate 2023 [facility] 06-15-2023 Note 06/15/23 1100 Pt called and said was out of myfortic, mail order did not arrive. Pt takes myfortic 720 twice a day. Pt chart reviewed and dose confirmed. Prescription called in to [facility] pharmacy. 5 days supply, 40 tablets. Myfortic 180 tablets, take 720 mg - 4 tablets, twice a day. [facility] Pt verbalized understanding. [facility] 04-30-2023 Note Reviewed Tac Lvl 9.3 in [...] she is currently taking Envarsus 2 mg. [facility] 04-16-2023 Note Seen by Dolores FIERRO in clinic today, he states he gave the pt verbal instruction to reduce her Prednisone to 5mg every other day. [facility] 04-16-2023 Note Nephrology Transplan t Clinic Patient : Mandeep Puri; 47 y.o. Reason for Visit: History of kidney transplant. SUBJECTIVE: History Of Present Illness: 04/16/2023 aMndeep Puri is a 47 y.o. female who [...] back: Neck sup (more content not included)... [facility] 04-11-2023 Note Reviewed Mag K & cre atinine with Guillermo FIERRO and to start Amiloride 5mg every day due to low mag level 1.6. Pt notified and she verbalizes understanding. RV 04/16 [facility] 04-11-2023 Note Pt wishes to discuss Ozempic [...] 6 months post transplant and she agrees. 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 She takes Urolic and denies any recent gout flare Jul, Metabolic acidemia, unspecified (ICD-10 - P19.9) She has metabolic acidosis due to the advanced CKD. Continue oral Sodium Bicarbonate [employer] Other 09-28-2022 Evaluation note* Encounter Date Diagnosis [...] disease, unspecified CKD stage (ICD-10 - N18.9) [employer] [facility] Encounter Date Diagnosis Assessment Notes Treatment Notes Treatment Clinical Notes May, Pre-op testing (ICD-10 - Z01.818) [employer] Other 08-25-2022 Evaluation note* Encounter Date Diagnosis [...] will schedule this in the near future. [employer] Other 07-28-2022 Evaluation note* Encounter Date Diagnosis [...] explained to her the potential need of STOCK BLENDER in future. I discussed with her different options of STOCK BLENDER including PD, HTN renal transplant. I provide [...] stephens s gout and follows with a hoop driving machine operator. She takes Urolic and denies any recent gout flare [employer] Other 07-26-2022 Evaluation note* Encounter Date Diagnosis [...] care provider if no improvement of symptoms. [employer] Other 05-24-2022 Evaluation note* Encounter Date Diagnosis Assessment Notes Treatment Notes Treatment Clinical Notes February, Screening for colon cancer (ICD-10 - Z12.11) [employer] Other 03-03-2022 Evaluation note* Encounter Date Diagnosis [...] explained to her the potential need of STOCK BLENDER in future. I discussed with her different options of STOCK BLENDER including PD, HTN renal transplant. 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 She takes Urolic and denies any recent gout flare [employer] Other 06-25-2021 NotePatient Outreach (NEPHMN) MANDEEP PURI ([id number]) 1975 F Date Time Provider Department 03/30/21 PERRI BARRETT During your visit today, we recorded the following information about you: Allergies As of Date: 03/30/2021 Noted Allergy Reaction ALLOPURINOL 08/02/2019 4 - Hives Date Reviewed: 03/30/2021 Reviewed by: Perri Barrett MD - Fully Assessed Visit Diagnosis:Screening for genitourinary condition [Z13.89] Order(s):URINALYSIS, DIPSTICK ONLY [SQUA] Order #: [id number]. #:[id number] Prescriptions as of 03/30/2021 Sig: DULOXETINE 60 [...] dominant polycystic kidney dis*03/30/2021 Encounter Status:Closed by [employer] on 04/02/21[facility] 03-30-2021 NoteHNO ID: [id number] Author: Perri Barrett MD Service: ? Author Type: Physician Type: Progress Notes Filed: 03/30/2021 10:25 AM Note Text: Mrs. 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 sirol[facility]rapamycin) [facility] History general Narrative - Reported * Type Description Date Medical History HTN (hypertension) Medical History Anxiety Medical History polycystic kidneys Medical History COVID 05-17-2020 Surgical History C section Surgical History BREAST REDUCTION Hospitalization History child Hospitalization History KIDNEY INFECTION 07/2019 Hospitalization History COVID AND DEHYDRATION [employer] Other 08-12-2020 History general Narrative - Reported* Type Description Date Medical History HTN (hypertension) Medical History Anxiety Medical History polycystic kidneys Medical History COVID 05-17-2020 Medical History end stage renal disease Surgical History C section Surgical History BREAST REDUCTION Surgical History colonoscopy 04/01/2022 Surgical History wisdom teeth 03/24/2022 Hospitalization History child Hospitalization History KIDNEY INFECTION 07/2019 Hospitalization History COVID AND DEHYDRATION [employer] Other 08-12-2020 History general Narrative - Reported* [...] INFECTION 07/2019 Hospitalization History COVID AND DEHYDRATION [employer] Other 08-12-2020 History general Narrative - Reported* [...] INFECTION 07/2019 Hospitalization History COVID AND DEHYDRATION [employer] Other Evaluation noteNo assessment information available [facility] Work Phone: Evaluation noteNo InformationNort [employer] Other Evaluation note* Diagnosis Onset Date Resolution Status Dysuria acute UTI (urinary tract infection) acute [facility] Work Phone: Assessments Diagnosis Acute sepsis (HCC)- Primary Acute cystitis without hematuria Acute cystitis Chronic renal failure, stage 4 (severe) (HCC) Polycystic kidney disease Polycystic kidney, unspecified type Advance Directives No Advanced Directives Records FoundDocuments on File Type Date Recorded Patient 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 Advance Directives and Living Will Power of Central Supply Clerk Advance Directive Response Recorded Date/ Time Advance [...] content) DATE CREATED AUTHOR 08/04/2019 Marielena Castillo [facility] DATE CREATED AUTHOR AUTHOR'S ORGANIZ ATION 04/28/2020 [facility] DATE CREATED AUTHOR AUTHOR'S ORGANIZ ATION 09/12/2020 [facility] DATE CREATED AUTHOR AUTHOR'S ORGANIZ ATION 11/07/2021 [facility] DATE CREATED AUTHOR AUTHOR'S ORGANIZ ATION 02/27/[address] [facility] DATE CREATED AUTHOR AUTHOR'S ORGANIZ ATION 08/04/2022 [facility] DATE CREATED AUTHOR AUTHOR'S ORGANIZ ATION 03/22/2024 [facility] DATE CREATED AUTHOR AUTHOR'S ORGANIZ ATION 03/24/2024 [facility] EPIC DATE CREATED AUTHOR AUTHOR'S ORGANIZ ATION 03/27/2024 [facility] Care Teams (unrecognized sec tion and content) [...] March 15, 2024 End: March 15, 2024 Anderia Edwards APRN Attending Provider Active S tart: [...] BE BASED ON THE PRIMARY CLINICAL RECORDS. [facility]. provides no warranty or guarantee of the accuracy or completeness of information in this document.
[2024-04-06 08:23] LABS: Bilirubin Urine NEGATIVE (NEGATIVE); Blood Urine NEGATIVE (NEGATIVE); Clarity Urine CLEAR (CLEAR); Color Urine LT. YELLOW (YELLOW); Glucose Urine UA NEGATIVE (NEGATIVE); Ketones Urine NEGATIVE (NEGATIVE); Leukocyte Esterase Urine SMALL (NEGATIVE); Nitrite Urine NEGATIVE (NEGATIVE); Protein Urine NEGATIVE (NEG/TRACE); Specific Gravity Urine 1.015 (1.005-1.025); Urobilinogen Urine 0.2 EU/dL (0.2-1.0); pH Urine 7.5 (5.0-9.0)
[2024-04-06 08:26] LABS: Urine Microscopic Indicated YES
[2024-04-06 08:47] LABS: Bacteria Urine SMALL #/HPF (NONE SEEN); Cast Seen? NONE SEEN #/LPF (NONE SEEN); Crystals Seen? None Seen #/HPF (None Seen); Mucus Urine TRACE (NONE SEEN); RBC Urine 0-2 #/HPF (0-2); Squamous Epithelial Cell Urine FEW #/LPF (NONE/RARE); Urine Culture Indicated ALREADY ORDERED
== END 2024-04-06 07:29 | disposition home or self-care (01) ==
LOC: LAB 07:28
PROVIDERS: PCP Internal Medicine; Visit Provider Internal Medicine
DX: Z94.0 Kidney transplant status (principal)
CPT/HCPCS: 81001; 87086; 87150; 87186

== ENCOUNTER 2024-06-02 07:25 | Outpatient (OUT) | payer OTHER, SELFPAY ==
--- OUTSIDE RECORDS SUMMARY | 2024-06-02 07:29 | XMS_ITS | CCD ---
Author Organization [facility] Care Team Providers Care Usability Architect Name Role Phone Ming Espinoza Primary Care Provider VIDAL MADRIGAL Attending Unavailable MING ESPINOZA Primary Care Unavailable Toni, Yaneth Unavailable Shabbir Jones Unavailable Dipika Stinson Unavailable Jesus Parham Unavailable DO Ming Espinoza Primary Care Provider MD Shabbir Jones Attending Provider [phone] MD Yaneth Muñoz Attending Provider [phone] MD Jesus Parham Attending Provider [phone] Estefania Vo Unavailable DO Ming Espinoza Primary Care Provider [phone] EB Forman Emergency Provider DO Blake Hinojosa Attending Provider [phone] ANGELAC, DR ZARAGOZA Admitting Unavailable DR MING [...] Care Provider MD Perri Ceja Attending Provider [phone] CECILIA Edwards Attending Provider Self, Referral Admitting Unavailable Self, Referral Attending Unavailable Ming Espinoza Primary Care Unavailable Blake Hinojosa Referring Unavailable Perri Ceja Admitting Unavailable Perri Ceja Attending Unavailable Ming Espinoza Primary Care Unavailable Jerry Andreia Xiomara Admitting Unavailable Andreia Edwards Attending Unavailable MING ESPINOZA Attending Unavailable MING ESPINOZA Referring Unavailable MING ESPINOZA Referring Unavailable CARLOS ENRIQUE RICHARD Attending Unavailable MING ESPINOZA Attending Unavailable MUNIRA PHAN Referring Unavailable BLAKE HINOJOSA Attending Unavailable BLAKE HINOJOSA Referring Unavailable MUNIRA PHAN Attending Unavailable MUNIRA PHAN Attending Unavailable Allergies Allergy Classification Reported Allergen(s) Allergy Type Date of Onset Reaction(s) Facility (13 sources) Allopurinol; Translations: [ALLOPURINOL] Drug Allergy 9 [place], [place] (8 sources) venlafaxine; Translations: [venlafaxine] Drug Allergy 2 Rash, Rash, [facility] (1 source) Allopurinol Drug Allergy 4 [facility] Repository (1 source) venlafaxine; Translations: [VENLAFAXINE HCL] Drug Allergy 1 [facility] Repository Medications Current Medications Medication Drug Class(es) [...] acid 7540 MG / polyethylene glycol 3350 57922 MG / potassium chloride 1200 MG / sodium ascorbate 68052 MG / sodium chloride 3200 MG Powder for Oral Solution) / 1 (polyethylene glycol 3350 789661 MG / potassium chloride 1000 MG / sodium chloride 2000 MG / sodium sulfate 9000 MG Powder for Oral Solution) } Pack [Plenvu] (1 source) Osmotic Laxative, Vitamin C Start: 02-26-2022 Plenvu 140 GM dose 1 pouch at 4pm, dose 2 pouch A & B at 11pm Orally twice a day for 1 days BIN:[id number] PCN: [id number] GROUP:[id number] ID:[id number] February, Active cetirizine hydrochloride 10 mg oral [...] mg/3 mL) pen injector (1 source) Start: Semaglutide (Ozempic) 2 mg/dose (8 mg/3 mL) [...] Start: 08-02-2019 take 2 tablets by mo [facility] once daily Acetaminophen (Tylenol Extra Strength) 500 mg Tablet Active 1000 MG PO Daily August 02, 2019 12:00am calcitriol 0.51235 mg oral capsule (6 sources) Vitamin D3 [...] 500 MG PO Twice daily 24 August 05, 2019 12:00am May 21, 2020 9:38pm Start: 01-20-2019 End: 08-02-2019 take 1 capsule by mouth every eight hours Cephalexin (Keflex) 500 mg capsule Discontinued 500 MG PO Q8H 15 January 20, 2019 12:00am August 02, 2019 [...] D2 Compound Start: 01-20-2019 End: 08-02-2019 take 65402 [IU] by mouth every month Ergocalciferol (Vitamin D2) Discontinued 88085 UNIT PO every month January 20, 2019 [...] sources) Kidney Follow-up; Translations: [Kidney Follow-up] Onset: 4 Urinary tract infections (20 sources) Acute cystitis; Translations: [Urinary tract infectious disease] Onset: 4 05-15-2020 Episodic Past or Other Problems Problem Classification Problem Date Documented Da te Episodic/Chronic Diabetes mellitus without complication (2 sources) Impaired fasting glucose; Translations: [Impaired fasting glucose] Onset: 08-26-2023 Episodic Fluid and electrolyte disorders (3 sources) Acidosis; Translations: [ACIDOSIS] Onset: 12-06-2021 Resolved: 05-02-2022 Episodic Other aftercare (2 sources) Other jail (current) drug therapy; Translations: [Other intermediate manager (current) drug therapy] Onset: 05-29-2023 Episodic Other non-traumatic joint disorders (1 source) [...] Test Name Value Interpretation Reference Range Facility CREATININE, URINE, RANDOMon 04-27-2024 Creatinine (U) [Mass/Vol] 142.0 mg/dL Normal 26-299 [facility] Comment on above: Performed By: #### L [id number] #### [facility] ([facility]) [address] [place] [address] Follow-Upon 04-27-2024 Follow-Up [id number] Antonio Puri i 1975 F Date Provider Department Center 04/27/2024 124-MUNIRA PHAN None Family History Problem Relation Age of Onset Fibromyalgia Mother Heart disease Father Hypertension Sister Polycystic kidney disease Sister Hypertension Brother Polycystic kidney disease Brother Family Status - Relation Status Age at Mother Father Sister Brother Level of Service:07173 [place] OFFICE/OUTPATIENT ESTABLISHED MOD MDM 30 MIN Reason for Visit and Comments: Kidney Follow-up [] - Pt states she keeps getting a continuous UTI has been going on for months, has been on many antibiotics. Last Friday pt did a urine and it came back clean. Pt states previous urine sample came back with E.Coli at family doctor. Pt wanted to know if potassium can be decreased to 10 mg because they are smaller pills. Normal [facility] PROTEIN, URINE, RANDOMon Protein (U) [Mass/Vol] 51.7 mg/dL Normal [facility] Comment on above: Result Comment: Ther e are no established reference values for random urine specimens. Performed By: #### L [id number] #### [facility] ([facility]) [address] [place] [address] URINALYSISon 04-27-2024 BILIRUBIN, TOTAL PRESENCE IN URINE Negative Normal Negative [facility] Comment on above: Performed By: #### L [id number] #### [facility] (BEAKER) [address] [place] [address] Clarity (U) Slightly Cloudy Abnormal Clear [facility]i [facility] Comment on above: Performed By: #### L [id number] #### [facility] ([facility]) [address] [place] [address] Color (U) Yellow Normal Yellow [facility] Comment on above: Performed By: #### L [id number] #### [facility] ([facility]) [address] [place] [address] Glucose (U) [Mass/Vol] Negative Normal [facility] Comment on above: Performed By: #### L [id number] #### [facility] ([facility]) [address] [place] [address] HEMOGLOBIN PRESENCE IN URINE Small Abnormal Negative [facility] Comment on above: Performed By: #### L [id number] #### [facility] ([facility]) [address] [place] [address] Ketones Ql (U) Negative Normal Negative [facility] Comment on above: Performed By: #### L [id number] #### [facility] ([facility]) [address] [place] [address] LEUKOCYTE ESTERASE PRESENCE IN URINE BY TEST STRIP Large Abnormal Negative [facility] Comment on above: Performed By: #### L [id number] #### [facility] ([facility]) [address] [place] [address] NITRITE PRESENCE IN URINE Positive Abnormal Negative [facility] Comment on above: Performed By: #### L [id number] #### [facility] ([facility]) [address] [place] [address] pH (U) 6.0 [pH] Normal 5.0-8.0 [facility] Comment on above: Performed By: #### L [id number] #### [facility] ([facility]) [address] [place] [address] Protein (U) [Mass/Vol] 100 mg/dL Abnormal Negative [facility] Comment on above: Performed By: #### L [id number] #### [facility] ([facility]) [address] [place] [address] Specific gravity (U) [Rel density] 1.012 Low 1.015-1.020 [facility] Comment on above: Performed By: #### L [id number] #### [facility] ([facility]) [address] [place] [address] URINALYSIS MICROSCOPICon CASTS IN URINE Normal [facility] Comment on above: Performed By: #### L [id number] ####[facility] ([facility])[address] [place] [address] CRYSTALS IN URINE Normal [facility] Comment on above: Performed By: #### L [id number] ####[facility] ([facility])[address] [place] [address] MUCUS (#/HPF) IN URINE SEDIMENT Occasional Normal None Seen, Occasional, Few [facility] Comment on above: Performed By: #### L [id number] ####[facility] ([facility])[address] [place] [address] RBC (#/HPF) IN URINE SEDIMENT 11-20 Abnormal None Seen [facility] Comment on above: Performed By: #### L [id number] ####[facility] ([facility])[address] [place] [address] SQUAMOUS EPITHELIAL CELLS (#/HPF) IN URINE SEDIMENT Moderate Abnormal None Seen, Occasional [facility] Comment on above: Performed By: #### L [id number] ####[facility] ([facility])[address] [place] [address] WBC (LEUKOCYTE) (#/HPF) IN URINE SEDIMENT >100 Abnormal None Seen [facility] Comment on above: Performed By: #### L [id number] ####[facility] ([facility])[address] [place] [address] BILIRUBIN, DIRECTon 04-23-20 24 Magnesium [Mass/Vol] 0.0 mg/dL Normal 0-0.2 [facility] Comment on above: Performed By: #### L [id number] #### [facility] TISSUE TYPING (HISTOTRAC) [address] [place] [address] [place] CBC WITH AUTO DIFFERENTIALon 04-23-2024 Basophils (Bld) [#/Vol] 0.05 10*3/uL Normal 0.00-0.20 [facility] Comment on above: Performed By: #### L [id number] #### [facility] (BEAKER) [address] [place] [address] Basophils/100 WBC (Bld) 0.6 % Normal 0.0-1.0 [facility] Comment on above: Performed By: #### L [id number] #### [facility] ([facility]) [address] [place] [address] Eosinophils (Bld) [#/Vol] 0.17 10*3/uL Normal 0.00-0.50 [facility] Comment on above: Performed By: #### L [id number] #### [facility] ([facility]) [address] [place] [address] Eosinophils/100 WBC (Bld) 1.9 % Normal 0.0-6.0 [facility] Comment on above: Performed By: #### L [id number] #### [facility] ([facility]) [address] [place] [address] Erythrocyte distribution width (RBC) [Ratio] 15.7 % High 11.5-15.0 [facility] Comment on above: Performed By: #### L [id number] #### [facility] ([facility]) [address] [place] [address] ERYTHROCYTE MEAN CORPUSCULAR HEMOGLOBIN CONCENTRATION (G/DL) BY AUTOMATED 32.7 g/dL Normal 32.0-35.0 [facility] Comment on above: Performed By: #### L [id number] #### [facility] ([facility]) [address] [place] [address] Hematocrit (Bld) [Volume fraction] 39.2 % Normal 36.0-48.0 [facility] Comment on above: Performed By: #### L [id number] #### [facility] ([facility]ER) [address] [facility] [place] [address] Hemoglobin (Bld) [Mass/Vol] 12.8 g/dL Normal 12.0-15.0 [facility] Comment on above: Performed By: #### L [id number] #### [facility] ([facility]) [address] [place] [address] Immature granulocytes (Bld) [#/Vol] 0.06 10*3/uL Normal 0.00-0.20 [facility] Comment on above: Performed By: #### L [id number] #### [facility] ([facility]) [address] [place] [address] Immature granulocytes/100 WBC (Bld) 0.7 % Normal 0.0-1.0 [facility] Comment on above: Performed By: #### L [id number] #### [facility] ([facility]) [address] [place] [address] Lymphocytes (Bld) [#/Vol] 1.27 10*3/uL Normal 1.20-4.00 [facility] Comment on above: Performed By: #### L [id number] #### [facility] ([facility]) [address] [place] [address] Lymphocytes/100 WBC (Bld) 14.5 % Low 20.0-45.0 [facility] Comment on above: Performed By: #### L [id number] #### [facility] ([facility]) [address] [place] [address] MCH (RBC) [Entitic mass] 27.7 pg Normal 27.0-33.0 [facility] Comment on above: Performed By: #### L [id number] #### [facility] ([facility]ER) [address] [place] [address] MCV (RBC) [Entitic vol] 84.8 fL Normal 82.0-98.0 [facility] Comment on above: Performed By: #### L [id number] #### [facility] ([facility]ER) [address] [place] [address] Monocytes (Bld) [#/Vol] 0.40 10*3/uL Normal 0.10-1.00 [facility] Comment on above: Performed By: #### L [id number] #### [facility] ([facility]ER) [address] [place] [address] Monocytes/100 WBC (Bld) 4.6 % Low 5.0-12.0 [facility] Comment on above: Performed By: #### L [id number] #### [facility] ([facility]) [address] [place] [address] Neutrophils (Bld) [#/Vol] 6.82 10*3/uL Normal 1.60-7.60 [facility] Comment on above: Performed By: #### L [id number] #### [facility] ([facility]) [address] [place] [address] Neutrophils/100 WBC (Bld) 77.7 % High 40.0-72.0 [facility] Comment on above: Performed By: #### L [id number] #### [facility] ([facility]) [address] [place] [address] NRBC (PER 100 WBCS) BY AUTOMATED COUNT 0.0 % Normal 0 [facility] Comment on above: Performed By: #### L [id number] #### [facility] ([facility]) [address] [place] [address] PLATELETS (10*3/UL) IN BLOOD AUTOMATED COUNT 337 10*3/uL Normal 150-400 [facility] Comment on above: Performed By: #### L [id number] #### [facility] ([facility]) [address] [place] [address] RBC (Bld) [#/Vol] 4.62 10*6/uL Normal 3.80-5.00 [facility] Comment on above: Performed By: #### L [id number] #### [facility] ([facility]) [address] [place] [address] WBC (Bld) [#/Vol] 8.77 10*3/uL Normal 4.00-10.60 [facility] Comment on above: Performed By: #### L [id number] #### [facility] ([facility]) [address] [place] [address] COMPREHENSIVE METABOLIC PANE Jonathan 04-23-2024 Albumin [Mass/Vol] 4.4 g/dL Normal 3.5-5.7 [facility] Comment on above: Performed By: #### L [id number] #### [facility] ([facility]) [address] [place] [address] ALP [Catalytic activity/Vol] 74 U/L Normal 34-104 [facility] Comment on above: Performed By: #### L [id number] #### [facility] ([facility]) [address] [place] [address] ALT [Catalytic activity/Vol] 9 U/L Normal 7-52 [facility] Comment on above: Performed By: #### L [id number] #### [facility] ([facility]) [address] [place] [address] Anion gap [Moles/Vol] 13 mmol/L Normal 7-20 [facility] Comment on above: Performed By: #### L [id number] #### [facility] ([facility]) [address] [place] [address] AST [Catalytic activity/Vol] 14 U/L Normal 13-39 [facility] Comment on above: Performed By: #### L [id number] #### [facility] ([facility]) [address] [place] [address] Bilirubin [Mass/Vol] 0.4 mg/dL Normal 0.3-1.0 [facility] Comment on above: Performed By: #### L [id number] #### [facility] ([facility]) [address] [place] [address] Calcium [Mass/Vol] 9.4 mg/dL Normal 8.6-10.3 [facility] Comment on above: Performed By: #### L [id number] #### [facility] ([facility]) [address] [place] [address] Chloride [Moles/Vol] 104 mmol/L Normal 98-107 [facility] Comment on above: Performed By: #### L [id number] #### [facility] ([facility]) [address] [place] [address] CO2 [Moles/Vol] 25 mmol/L Normal 21-31 [facility] Comment on above: Performed By: #### L [id number] #### [facility] ([facility]) [address] [place] [address] Creatinine [Mass/Vol] 1.09 mg/dL Normal 0.60-1.20 [facility] Comment on above: Performed By: #### L [id number] #### [facility] ([facility]) [address] [place] [address] GLOMERULAR FILTRATION RATE ML/MIN/1.73 SQ M.PREDICTED 62.7 mL/min/1.73m*2 Normal >60.0 [facility] Comment on above: Result Comment: The [facility]???s estimated glomerular filtration rate (eGFR) will no [...] of individuals. Performed By: #### L [id number] #### [facility] ([facility]) [address] [place] [address] Glucose [Mass/Vol] 108 mg/dL High 70-100 [facility] Comment on above: Performed By: #### L [id number] #### [facility] ([facility]) [address] [place] [address] Potassium [Moles/Vol] 3.5 mmol/L Normal 3.5-5.1 [facility] Comment on above: Performed By: #### L [id number] #### [facility] ([facility]) [address] [place] [address] Protein [Mass/Vol] 7.6 g/dL Normal 6.0-8.3 [facility] Comment on above: Performed By: #### L [id number] #### [facility] ([facility]) [address] [place] [address] Sodium [Moles/Vol] 138 mmol/L Normal 136-145 [facility] Comment on above: Performed By: #### L [id number] #### [facility] ([facility]) [address] [place] [address] Urea nitrogen [Mass/Vol] 13 mg/dL Normal 7-25 [facility] Comment on above: Performed By: #### L [id number] #### [facility] ([facility]) [address] [place] [address] UREA NITROGEN/CREATININE (MASS RATIO) IN SER/PLAS 11.9 Normal [facility] Comment on above: Performed By: #### L [id number] #### [facility] ([facility]) [address] [place] [address] HEMOGLOBIN A1Con 04-23-2024 Glucose [Mass/Vol] 105 mg/dL Normal [facility] Comment on above: Performed By: #### L [id number] #### [facility] ([facility]) [address] [place] [address] HbA1c (Bld) [Mass fraction] 5.3 % Normal 4.0-6.0 [facility] Comment on above: Performed By: #### L [id number] #### [facility] ([facility]) [address] [place] [address] LIPID PANELon 04-23-2024 CHOL/HDL 4.0 mg/dL Normal [facility] Comment on above: Performed By: #### L [id number] #### [facility] TISSUE TYPING (HISTOTRAC) [address] [place] [address] [facility] Cholesterol [Mass/Vol] 182 mg/dL Normal 120-200 Un [facility] Comment on above: Performed By: #### L [id number] #### [facility] TISSUE TYPING (HISTOTRAC) [address] [place] [address] [facility] Magnesium [Mass/Vol] 166 mg/dL High 40-149 [facility] Comment on above: Result Comment: TRIG LYCERIDE REFERENCE RANGE: 20 YEARS AND OLDER CARDIOVASCULAR RISK LESS THAN 150 mg/dL LOW RISK 150 TO 199 mg/dL BORDERLINE RISK 200 mg/dL AND GREATER HIGH RISK Performed By: #### L [id number] #### [facility] TISSUE TYPING (HISTOTRAC) [address] [place] [address] [facility] Magnesium [Mass/Vol] 103 mg/dL Normal 0-160 [facility] Comment on above: Performed By: #### L [id number] #### [facility] TISSUE TYPING (HISTOTRAC) [address] [place] [address] [facility] Magnesium [Mass/Vol] 46 mg/dL Normal 23-92 [facility] Comment on above: Performed By: #### L [id number] #### [facility] TISSUE TYPING (HISTOTRAC) [address] [place], [place] [address] NON HDL CHOL. (LDL+VLDL) 136 Normal [facility] Comment on above: Performed By: #### L [id number] #### [facility] TISSUE TYPING (HISTOTRAC) [address] [place], [place] [address] TOTAL VLDL-C 33 mg/dL Normal 0-40 [facility] Comment on above: Performed By: #### L [id number] #### [facility] TISSUE TYPING (HISTOTRAC) [address] Labon 04-23-2024 Lab [id number] Antonio Puri i 1975 F Date Provider Department Center 04/23/2024 0298-[facility] OPD LAB RESOURCE [facility] OPD [facility] C Family History Problem Relation Age of Onset Fibromyalgia Mother Heart disease Father Hypertension Sister Polycystic kidney disease Sister Hypertension Brother Polycystic kidney disease Brother Family Status - Relation Status Age at Mother Father Sister Brother Normal [facility] MAGNESIUMon 04-23-2024 Magnesium [Mass/Vol] 1.8 mg/dL Low 1.9-2.7 [facility] Comment on above: Performed By: #### L [id number] #### [facility] ([facility]) [address] [place] [address] PHOSPHORUSon 04-23-2024 Magnesium [Mass/Vol] 2.8 mg/dL Normal 2.5-5.0 [facility] Comment on above: Performed By: #### L [id number] #### [facility] ([facility]) [address] [place] [address] TACROLIMUS LEVELon Tacrolimus (Bld) [Mass/Vol] 10.5 ng/mL Normal 5.0-20.0 [facility] Comment on above: Result Comment: The [employer] Tacrolimus assay is a delayed one-step immunoassay for the quantitative determination of tacrolimus in human whole blood using the chemiluminescent microparticle immunoassay (CMIA) technology with flexible assay protocols, referred to as Chemiflex. Performed By: #### L [id number] #### [facility] ([facility]) [address] [place] [address] URIC ACIDon 04-23-2024 Magnesium [Mass/Vol] 4.0 mg/dL Normal 2.3-6.6 [facility] Comment on above: Performed By: #### L [id number] #### [facility] TISSUE TYPING (HISTOTRAC) [address] [place] [address] [place] URINALYSISon 04-23-2024 BILIRUBIN, TOTAL PRESENCE IN URINE Negative Normal Negative [facility] Comment on above: Performed By: #### L [id number] #### [facility] ([facility]) [address] [place] [address] Clarity (U) Cloudy Abnormal Clear [facility] Comment on above: Performed By: #### L [id number] #### [facility] ([facility]) [address] [place] [address] Color (U) Yellow Normal Yellow [facility] Comment on above: Performed By: #### L [id number] #### [facility] ([facility]) [address] [place] [address] Glucose (U) [Mass/Vol] Negative Normal Negative Un [facility] Comment on above: Performed By: #### L [id number] #### [facility] ([facility]) [address] [place] [address] HEMOGLOBIN PRESENCE IN URINE Negative Normal Negative [facility] Comment on above: Performed By: #### L [id number] #### [facility] CENTER) [address] [place] [address] Ketones Ql (U) Negative Normal Negative [facility] Comment on above: Performed By: #### L [id number] #### [facility] ([facility]) [address] [place] [address] LEUKOCYTE ESTERASE PRESENCE IN URINE BY TEST STRIP Negative Normal Negative [facility] Comment on above: Performed By: #### L [id number] #### [facility] ([facility]) [address] [place] [address] NITRITE PRESENCE IN URINE Negative Normal Negative [facility] Comment on above: Performed By: #### L [id number] #### [facility] ([facility]) [address] [place] [address] pH (U) 7.0 [pH] Normal 5.0-8.0 [facility] Comment on above: Performed By: #### L [id number] #### [facility] ([facility]) [address] [place] [address] Protein (U) [Mass/Vol] Negative Normal Negative [facility] Comment on above: Performed By: #### L [id number] #### [facility] ([facility]) [address] [place] [address] Specific gravity (U) [Rel density] 1.011 Low 1.015-1.020 [facility] Comment on above: Performed By: #### L [id number] #### [facility] ([facility]) [address] [place] [address] URINALYSIS MICROSCOPICon AMORPHOUS CRYSTALS (#/HPF) IN URINE Few Abnormal None Seen [facility] Comment on above: Performed By: #### L [id number] #### [facility] ([facility]) [address] [place] [address] CASTS IN URINE Normal [facility] Comment on above: Performed By: #### L [id number] #### [facility] ([facility]) [address] [place] [address] CRYSTALS IN URINE Normal [facility] Comment on above: Performed By: #### L [id number] #### [facility] ([facility]) [address] [place] [address] MUCUS (#/HPF) IN URINE SEDIMENT Occasional Normal None Seen, Occasional, Few [facility] Comment on above: Performed By: #### L [id number] #### [facility] ([facility]) [address] [place] [address] RBC (#/HPF) IN URINE SEDIMENT 3-5 Abnormal None Seen [facility] Comment on above: Performed By: #### L [id number] #### [facility] ([facility]) [address] [place] [address] SQUAMOUS EPITHELIAL CELLS (#/HPF) IN URINE SEDIMENT Many Abnormal None Seen, Occasional [facility] Comment on above: Performed By: #### L [id number] #### [facility] ([facility]) [address] [place] [address] WBC (LEUKOCYTE) (#/HPF) IN URINE SEDIMENT 3-5 Abnormal None Seen [facility] Comment on above: Performed By: #### L [id number] #### [facility] ([facility]) [address] [place] [address] URINE CULTURE, ROUTINEon Bacteria identified Cx Nom (U) <10,000 CFU/ML No Significant Growth Normal [facility] Comment on above: Performed By: #### L [id number] ####[facility] ([facility])[address] [place] [address] US RENAL COMPLETEon 04-14-20 24 US RENAL COMPLETE EXAM: Renal Ultrasou nd with Doppler: REASON FOR EXAM: Polycystic kidneys. COMPARISON: None. TECHNIQUE: Real-time ultrasonographic evaluation of the kidneys is performed with color flow Doppler. FINDINGS: There is a transplanted right kidney. Right kidney: Numerous flandreau right renal cysts. No hydronephrosis. Left kidney: Numerous flandreau left renal cysts. No hydronephrosis. Uniform and symmetric blood flow in each kidney by Doppler ultrasound. Negative for hydronephrosis, retroperitoneal mass, fluid collection or stone. Bladder: The bladder contains fluid. The ureteral jets are not seen in the urinary bladder. Aorta and inferior vena cava: Patent by Doppler ultrasound. Measurements: Right Kidney: 13.5 x 9.1 x 10.8 cm Left Kidney: 14.4 x 9.4 x 8.6 cm Bladder Pre-void: 8.2 x 9.7 x 8.9 cm/366.9 mL Post: 3.9 x 3.1 x 1.6 cm/3.1 mL PVR: 0.8% IMPRESSION: 1. Right renal transplant. The renal transplant is normal in appearance. 2. Cystic replacement of both kidneys. 3. Negative for hydronephrosis or stone. *This report is generated using voice recognition reporting (New Wind). On occasion ison furniturecribe erroneously drops words from the report or replaces the spoken word with similar sounding words. Please call with any questions/concerns regarding this report.* Dictated and transcribed 04/14/2024/heriberto This report has been electronically signed and approved by the interpreting radiologist. Electronically Signed René Raymond M.D. 2024-04-14 16:31:56 Normal Not Available Urine Cultureon 03-15-2024 Bacteria identified Cx Nom (U) ORGANISM: Escherichia coli (MDRO) (O:ESCCOLMDRO) [place] Count >100,000 Aerobic CODI Charge (NMIC56) SUSCEPTIBILITY [...] RESISTANT TO ALL B-LACTAM DRUGS. PERFORMED BY: [place] [address] PATHOLOGIST TAKE OFF MAN ANAHY MCKEE M.D. Normal [facility] Comment on above: Performed By: #### C UU #### [address] Documentationon 03-03-2024 Documentation [id number] Antonio Puri i 1975 F Date Provider Department Center 03/03/2024 750-JOSE RAFAEL GAVIRIA TXP None Family History Problem Relation Age of Onset Fibromyalgia Mother Heart disease Father Hypertension Sister Polycystic kidney disease Sister Hypertension Brother Polycystic kidney disease Brother Family Status - Relation Status Age at Mother Father Sister Brother Normal [facility] Follow-Upon 12-23-2023 Follow-Up [id number] Antonio Puri i 1975 F Date Provider Department Center 12/23/2023 124-MUNIRA PHAN TXP None Family History Problem Relation Age of Onset Fibromyalgia Mother Heart disease Father Hypertension Sister Polycystic kidney disease Sister Hypertension Brother Polycystic kidney disease Brother Family Status - Relation Status Age at Mother Father Sister Brother Level of Service:05136 [place] OFFICE/OUTPATIENT ESTABLISHED MOD MDM 30 MIN Reason for Visit and Comments: Kidney Follow-up [] - Pt has questions about her lab work. Normal [facility] PAPITO Antinuclear Antibodieson 11-06-2023 Antinuclear Abs, IFA Negative Normal . The Replaced By [facility] Comment on above: Result Comment: Nega tive <1:80 Borderline 1:80 Positive >1:80 ICAP nomenclature: AC-0 For more information about Hep-2 cell patterns use ANApatterns.org, the official website for the International Consensus on Antinuclear Antibody (PAPITO) Patterns (ICAP). Performed at: [facility] [address] [id number] Public Works Laborer: Gabriel Whitman PhD, Phone: [phone] PERFORMED BY: [place] [address] PATHOLOGIST TAKE OFF MAN ANAHY MCKEE M.D. Performed By: #### C K, CMP, CRP, CBC, ESR #### [facility] [address] [place] [address] #### PAPITO #### [facility] , Alanine aminotransferase [En zymatic activity/volume] in Serum or PlasmaOrdered By: Perri Ceja on 11-06-2023 ALT [Catalytic activity/Vol] 20 U/L Normal 7-52 [facility] Comment on above: Performed By: #### C K, CMP, CRP, CBC, ESR #### [facility] [address] [place] [address] [place] #### PAPITO #### [facility] , Albumin [Mass/volume] in Ser um or Plasma by Bromocresol green (BCG) dye binding methoOrdered By: Perri Ceja on 11-06-2023 Albumin BCG dye [Mass/Vol] 4.7 g/dL 3.5-5.7 [facility] Alkaline phosphatase [Enzyma tic activity/volume] in Serum or PlasmaOrdered By: Perri eCja on 11-06-2023 ALP [Catalytic activity/Vol] 96 U/L Normal 34-104 [facility] Comment on above: Performed By: #### C K, CMP, CRP, CBC, ESR #### [place] [address] [place] #### PAPITO #### [facility] , Aspartate aminotransferase [ Enzymatic activity/volume] in Serum or PlasmaOrdered By: Perri Ceja on 11-06-2023 AST [Catalytic activity/Vol] 16 U/L Normal 13-39 [facility] Comment on above: Performed By: #### C K, CMP, CRP, CBC, ESR #### [place] [address] [place] #### PAPITO #### [facility] , Automated basophil %Ordered By: Perri Ceja on 11-06-2023 Basophils/100 WBC (Bld) 0.7 % Normal . [facility] Comment on above: Performed By: #### C K, CMP, CRP, CBC, ESR #### [place] [address] [place] #### PAPITO #### [facility] , Automated basophil countOrde red By: Perri Ceja on 11-06-2023 Basophils (Bld) [#/Vol] 0.1 10*3/uL Normal 0.0-0.2 [facility] Comment on above: Performed By: #### C K, CMP, CRP, CBC, ESR #### [place] [address] [place] #### PAPITO #### [facility] , Automated blood monocyte cou ntOrdered By: Perri Ceja on 11-06-2023 Monocytes (Bld) [#/Vol] 0.6 10*3/uL Normal 0.0-0.8 [facility] Comment on above: Performed By: #### C K, CMP, CRP, CBC, ESR #### [place] [address] [place] #### PAPITO #### [facility] , Automated eosinophil %Ordere d By: Perri Ceja on 11-06-2023 Eosinophils/100 WBC (Bld) 3.0 % Normal . [facility] Comment on above: Performed By: #### C K, CMP, CRP, CBC, ESR #### [facility] [address] [place] [address] [place] #### PAPITO #### [facility] , Automated eosinophil countOr dered By: Perri Ceja on 11-06-2023 Eosinophils (Bld) [#/Vol] 0.3 10*3/uL Normal 0.0-0.45 [facility] Comment on above: Performed By: #### C K, CMP, CRP, CBC, ESR #### [address] #### PAPITO #### [facility] , Automated monocyte %Ordered By: Perri Ceja on 11-06-2023 Monocytes/100 WBC (Bld) 6.6 % Normal . [facility] Comment on above: Performed By: #### C K, CMP, CRP, CBC, ESR #### [place] [address] [place] #### PAPITO #### [facility] , Automated neutrophil %Ordere d By: Perri Ceja on 11-06-2023 Neutrophils/100 WBC (Bld) 72.1 % Normal . [facility] Comment on above: Performed By: #### C K, CMP, CRP, CBC, ESR #### [place] [address] [place] #### PAPITO #### [facility] , Bilirubin.total [Mass/volume ] in Serum or PlasmaOrdered By: Perri Ceja on 11-06-2023 Bilirubin [Mass/Vol] 0.4 mg/dL Normal 0.3-1.0 [facility] Comment on above: Performed By: #### C K, CMP, CRP, CBC, ESR #### [address] #### PAPITO #### [facility] , C reactive protein [Mass/vol ume] in Serum or PlasmaOrdered By: Perri Ceja on 11-06-2023 CRP [Mass/Vol] 2.0 mg/dL 0.0-0.5 [facility] C-Reactive Proteinon 024 C-Reactive Protein 2.0 mg/dL High 0.0-0.5 The Replaced By [facility] Comment on above: Result Comment: PERF ORMED BY: [place] [address] PATHOLOGIST TAKE OFF MAN ANAHY MCKEE M.D. Performed By: #### C K, CMP, CRP, CBC, ESR #### [address] #### PAPITO #### [facility] , Calcium [Mass/volume] in Ser um or PlasmaOrdered By: Perri Ceja on 11-06-2023 Calcium [Mass/Vol] 10.3 mg/dL Normal 8.6-10.3 [facility] Comment on above: Performed By: #### C K, CMP, CRP, CBC, ESR #### [address] #### PAPITO #### [facility] , Carbon dioxide, total [Moles /volume] in Serum or PlasmaOrdered By: Perri Ceja on 11-06-2023 CO2 [Moles/Vol] 26.1 mmol/L Normal 21.0-31.0 [facility] Comment on above: Performed By: #### C K, CMP, CRP, CBC, ESR #### [place] [address] [place] #### PAPITO #### [facility] , Chloride [Moles/volume] in S aislinn or PlasmaOrdered By: Perri Ceja on 11-06-2023 Chloride [Moles/Vol] 104 mmol/L Normal 98-107 [facility] Comment on above: Performed By: #### C K, CMP, CRP, CBC, ESR #### [facility] [address] [place] [address] [place] #### PAPITO #### [facility] , Complete Blood Count Auto Di ffon 11-06-2023 Mean Corpuscular HGB Conc 33.6 g/dL Normal 32.0-35.0 The Replaced By [facility] Comment on above: Performed By: #### C K, CMP, CRP, CBC, ESR #### [facility] [address] [place] [address] [place] #### PAPITO #### [facility] , NRBC% 0.1 /100{WBC} Normal 0-0.5 The Replaced By [facility] Comment on above: Performed By: #### C K, CMP, CRP, CBC, ESR #### [place] [address] [place] #### PAPITO #### [facility] , Comprehensive Metabolic Pane jonathan 11-06-2023 Albumin [Mass/Vol] 4.7 g/dL Normal 3.5-5.7 The Replaced By [facility] Comment on above: Performed By: #### C K, CMP, CRP, CBC, ESR #### [place] [address] [place] #### PAPITO #### [facility] , GFR/1.73 sq M.predicted MDRD (S/P/Bld) [Vol rate/Area] 57.919 mL/min/{1.73_m2} Normal The Replaced By [facility] Comment on above: Performed By: #### C K, CMP, CRP, CBC, ESR #### [facility] [address] [place] [address] [place] #### PAPITO #### [facility] , Creatine kinase [Enzymatic a ctivity/volume] in Serum or PlasmaOrdered By: Perri Ceja on 11-06-2023 CK [Catalytic activity/Vol] 30 U/L Normal 30-223 [facility] Comment on above: Result Comment: PERF ORMED BY: [place] [address] PATHOLOGIST TAKE OFF MAN ANAHY MCKEE M.D. Performed By: #### C K, CMP, CRP, CBC, ESR #### [address] #### PAPITO #### [facility] , Creatinine [Mass/volume] in Serum or PlasmaOrdered By: Perri Ceja on 11-06-2023 Creatinine [Mass/Vol] 1.17 mg/dL Normal 0.60-1.20 [facility] Comment on above: Performed By: #### C K, CMP, CRP, CBC, ESR #### [address] #### PAPITO #### [facility] , Erythrocyte Sedimentation Ra mathieu 11-06-2023 ESR (Bld) [Velocity] 49 mm/h High 0-19 The Replaced By [facility] Comment on above: Result Comment: PERF ORMED BY: [place] [address] PATHOLOGIST TAKE OFF MAN ANAHY MCKEE M.D. Performed By: #### C K, CMP, CRP, CBC, ESR #### [address] #### PAPITO #### [facility] , Erythrocyte distribution wid th [Ratio] by Automated countOrdered By: Perri Ceja on 11-06-2023 Erythrocyte distribution width (RBC) [Ratio] 15.3 % Normal 11.9-15.3 [facility] Comment on above: Performed By: #### C K, CMP, CRP, CBC, ESR #### [place] [address] [place] #### PAPITO #### [facility] , Erythrocyte sedimentation ra te by Photometric methodOrdered By: Perri Ceja on 11-06-2023 ESR Photometric method (Bld) [Velocity] 49 mm/hr 0-19 [facility] Erythrocytes [#/volume] in B lood by Automated countOrdered By: Perri Ceja on 11-06-2023 RBC (Bld) [#/Vol] 4.60 10*6/uL Normal 3.60-5.00 [facility] Comment on above: Performed By: #### C K, CMP, CRP, CBC, ESR #### [facility] [address] [place] [address] [place] #### PAPITO #### [facility] , Glucose [Mass/volume] in Ser um or PlasmaOrdered By: Perri Ceja on 11-06-2023 Glucose [Mass/Vol] 91 mg/dL Normal 70-100 [facility] Comment on above: ADA recommended refe rence rangeRandom Glucose Reference Range is dependent on time and content of last meal. Glucose of more than 200 mg/dL in a nonstressed, ambulatory subject supports the diagnosis of Diabetes Mellitus. Result Comment: [place] om Glucose Reference Range is dependent on time and content of last meal. Glucose of more than 200 mg/dL in a nonstressed, ambulatory subject supports the diagnosis of Diabetes Mellitus. ADA recommended reference range Performed By: #### C K, CMP, CRP, CBC, ESR #### [place] [address] [place] #### PAPITO #### [facility] , Hematocrit [Volume Fraction] of Blood by Automated countOrdered By: Perri Ceja on 11-06-2023 Hematocrit (Bld) [Volume fraction] 38.9 % Normal 34.0-46.4 [facility] Comment on above: Performed By: #### C K, CMP, CRP, CBC, ESR #### [facility] [address] [place] [address] [place] #### PAPITO #### [facility] , Hemoglobin [Mass/volume] in BloodOrdered By: Perri Ceja on 11-06-2023 Hemoglobin (Bld) [Mass/Vol] 13.1 g/dL Normal 11.8-15.4 [facility] Comment on above: Performed By: #### C K, CMP, CRP, CBC, ESR #### [facility] [address] [place] [address] [place] #### PAPITO #### [facility] , Leukocytes [#/volume] correc noah for nucleated erythrocytes in Blood by Automated counOrdered By: Perri Ceja on 11-06-2023 WBC corrected for nucl RBC Auto (Bld) [#/Vol] 8.8 10*3/uL 3.8-11.6 [facility] Leukocytes [#/volume] in Blo od by Automated countOrdered By: Perri Ceja on 11-06-2023 WBC (Bld) [#/Vol] 8.8 10*3/uL Normal 3.8-11.6 [facility] Comment on above: Performed By: #### C K, CMP, CRP, CBC, ESR #### [place] [address] [place] #### PAPITO #### [facility] , Lymphocytes [#/volume] in Bl ood by Automated countOrdered By: Perri Ceja on 11-06-2023 Lymphocytes (Bld) [#/Vol] 1.5 10*3/uL Normal 1.00-4.8 [facility] Comment on above: Performed By: #### C K, CMP, CRP, CBC, ESR #### [place] [address] [place] #### PAPITO #### [facility] , Lymphocytes/100 leukocytes i n Blood by Automated countOrdered By: Perri Ceja on 11-06-2023 Lymphocytes/100 WBC (Bld) 17.6 % Normal . [facility] Comment on above: Performed By: #### C K, CMP, CRP, CBC, ESR #### [place] [address] [place] #### PAPITO #### [facility] , MCH [Entitic mass] by Automa noah countOrdered By: Perri Ceja on 11-06-2023 MCH (RBC) [Entitic mass] 28.4 pg Normal 24.7-34.3 [facility] Comment on above: Performed By: #### C K, CMP, CRP, CBC, ESR #### [facility] [address] [place] [address] [place] #### PAPITO #### [facility] , MCHC Auto (RBC) [Mass/Vol]Or dered By: Perri Ceja on 11-06-2023 MCHC (RBC) [Mass/Vol] 33.6 g/dL 32.0-35.0 [facility] MCV [Entitic volume] by Auto mated countOrdered By: Perri Ceja on 11-06-2023 MCV (RBC) [Entitic vol] 84.6 fL Normal 80-100 [facility] Comment on above: Performed By: #### C K, CMP, CRP, CBC, ESR #### [facility] [address] [place] [address] [place] #### PAPITO #### [facility] , Neutrophils [#/volume] in Bl ood by Automated countOrdered By: Perri Ceja on 11-06-2023 Neutrophils (Bld) [#/Vol] 6.3 10*3/uL Normal 1.8-7.7 [facility] Comment on above: Performed By: #### C K, CMP, CRP, CBC, ESR #### [facility] [address] [place] [address] [place] #### PAPITO #### [facility] , No Panel InformationOrdered By: Perri Ceja on 11-06-2023 Estimated GFR (CKD-EPI) 57.919 mL/Min [facility] Creatinine Clearance (Chem N/A [facility] Nucleated erythrocytes [Pres ence] in Blood by Automated countOrdered By: Perri Ceja on 11-06-2023 Nucleated RBC Auto Ql (Bld) 0.1 /100{WBC} 0-0.5 [facility] Platelet mean volume [Entiti c volume] in Blood by Automated countOrdered By: Perri Ceja on 11-06-2023 Platelet mean volume (Bld) [Entitic vol] 6.9 fL Normal 6.3-10.7 [facility] Comment on above: Performed By: #### C K, CMP, CRP, CBC, ESR #### [address] #### PAPITO #### [facility] , Platelets [#/volume] in Bloo d by Automated countOrdered By: Perri Ceja on 11-06-2023 Platelets (Bld) [#/Vol] 393 10*3/uL Normal 150-450 [facility] Comment on above: Performed By: #### C K, CMP, CRP, CBC, ESR #### [address] #### PAPITO #### [facility] , Potassium [Moles/volume] in Serum or PlasmaOrdered By: Perri Ceja on 11-06-2023 Potassium [Moles/Vol] 3.8 mmol/L Normal 3.5-5.1 [facility] Comment on above: Performed By: #### C K, CMP, CRP, CBC, ESR #### [address] #### P[place]ITO #### [facility] , Protein [Mass/volume] in Ser um or PlasmaOrdered By: Perri Ceja on 11-06-2023 Protein [Mass/Vol] 7.7 g/dL Normal 6.4-8.9 [facility] Comment on above: Performed By: #### C K, CMP, CRP, CBC, ESR #### [place] [address] [place] #### PAPITO #### [facility] , Serum globulin measurement b y calculation (mass/volume)Ordered By: Perri Ceja on 11-06-2023 Globulin (S) [Mass/Vol] 3.0 g/dL Normal [facility] Comment on above: Performed By: #### C K, CMP, CRP, CBC, ESR #### [facility] [address] [place] [address] [place] #### PAPITO #### [facility] , Serum or plasma albumin/glob ulin mass ratioOrdered By: Perri Ceja on 11-06-2023 Albumin/Globulin [Mass ratio] 1.6 {ratio} Normal [facility] Comment on above: Performed By: #### C K, CMP, CRP, CBC, ESR #### [place] [address] [place] #### PAPITO #### [facility] , Serum or plasma anion gap de terminationOrdered By: Perri Ceja on 11-06-2023 Anion gap [Moles/Vol] 12.7 mmol/L Normal 6.0-15.0 [facility] Comment on above: Performed By: #### C K, CMP, CRP, CBC, ESR #### [facility] [address] [place] [address] #### PAPITO #### [facility] , Sodium [Moles/volume] in Ser um or PlasmaOrdered By: Perri Ceja on 11-06-2023 Sodium [Moles/Vol] 139 mmol/L Normal 136-145 [facility] Comment on above: Performed By: #### C K, CMP, CRP, CBC, ESR #### [facility] [address] [place] [address] [place] #### PAPITO #### [facility] , Urea nitrogen [Mass/volume] in Serum or PlasmaOrdered By: Perri Ceja on 11-06-2023 Urea nitrogen [Mass/Vol] 17 mg/dL Normal 7-25 [facility] Comment on above: Performed By: #### C K, CMP, CRP, CBC, ESR #### [facility] [address] [place] [address] [place] #### PAPITO #### [facility] , Orders Onlyon 10-02-2023 Orders Only [id number] Antonio Puri i 1975 F Date Provider Department Center 10/02/2023 1971-LU STEPHENS TXP None Family History Problem Relation Age of Onset Fibromyalgia Mother Heart disease Father Hypertension Sister Polycystic kidney disease Sister Hypertension Brother Polycystic kidney disease Brother Family Status - Relation Status Age at Mother Father Sister Brother Normal [facility] Follow-Upon 09-01-2023 Follow-Up [id number] Antonio Puri i 1975 F Date Provider Department Center 09/01/2023 344-DOLORES SUJIT TXP None Family History Problem Relation Age of Onset Fibromyalgia Mother Heart disease Father Hypertension Sister Polycystic kidney disease Sister Hypertension Brother Polycystic kidney disease Brother Family Status - Relation Status Age at Mother Father Sister Brother Level of Service:80570 [place] OFFICE/OUTPATIENT ESTABLISHED MOD MDM 30-39 MIN () Reason for Visit and Comments: Kidney Follow-up [[id number]] - Patient reports pain all over her body that comes and goes. She would like to discuss swelling in her feet. Normal [facility] BILIRUBIN, DIRECTon 08-26-20 Magnesium [Mass/Vol] 0.1 mg/dL Normal 0-0.2 [facility] Comment on above: Performed By: #### L AB52 ####[facility] ([facility])[address] [place] [address] CBC WITH AUTO DIFFERENTIALon 08-26-2023 Basophils (Bld) [#/Vol] 0.05 10*3/uL Normal 0.00-0.20 [facility] Comment on above: Performed By: #### L [id number] #### [facility] ([facility]) [address] [place] [address] Basophils/100 WBC (Bld) 0.6 % Normal 0.0-1.0 [facility] Comment on above: Performed By: #### L [id number] #### [facility] ([facility]) [address] [place] [address] Eosinophils (Bld) [#/Vol] 0.20 10*3/uL Normal 0.00-0.50 [facility] Comment on above: Performed By: #### L [id number] #### [facility] ([facility]) [address] [place] [address] Eosinophils/100 WBC (Bld) 2.5 % Normal 0.0-6.0 [facility] Comment on above: Performed By: #### L [id number] #### [facility] ([facility]) [address] [place] [address] Erythrocyte distribution width (RBC) [Ratio] 14.4 % Normal 11.5-15.0 [facility] Comment on above: Performed By: #### L [id number] #### [facility] ([facility]) [address] [place] [address] ERYTHROCYTE MEAN CORPUSCULAR HEMOGLOBIN CONCENTRATION (G/DL) BY AUTOMATED 32.9 g/dL Normal 32.0-35.0 [facility] Comment on above: Performed By: #### L [id number] #### [facility] [facility] ([facility]) [address] [place] [address] Hematocrit (Bld) [Volume fraction] 40.4 % Normal 36.0-48.0 [facility] Comment on above: Performed By: #### L [id number] #### [facility] ([facility]) [address] [place] [address] Hemoglobin (Bld) [Mass/Vol] 13.3 g/dL Normal 12.0-15.0 [facility] Comment on above: Performed By: #### L [id number] #### [facility] ([facility]) [address] [place] [address] Immature granulocytes (Bld) [#/Vol] 0.06 10*3/uL Normal 0.00-0.20 [facility] Comment on above: Performed By: #### L [id number] #### [facility] ([facility]) [address] [place] [address] Immature granulocytes/100 WBC (Bld) 0.7 % Normal 0.0-1.0 [facility] Comment on above: Performed By: #### L [id number] #### [facility] ([facility]) [address] [place] [address] Lymphocytes (Bld) [#/Vol] 1.19 10*3/uL Low 1.20-4.00 [facility] Comment on above: Performed By: #### L [id number] #### [facility] ([facility]) [address] [place] [address] Lymphocytes/100 WBC (Bld) 14.6 % Low 20.0-45.0 [facility] Comment on above: Performed By: #### L [id number] #### [facility] ([facility]) [address] [place] [address] MCH (RBC) [Entitic mass] 28.4 pg Normal 27.0-33.0 [facility] Comment on above: Performed By: #### L [id number] #### [facility] ([facility]) [address] [place] [address] MCV (RBC) [Entitic vol] 86.1 fL Normal 82.0-98.0 [facility] Comment on above: Performed By: #### L [id number] #### [facility] ([facility]) [address] [place] [address] Monocytes (Bld) [#/Vol] 0.42 10*3/uL Normal 0.10-1.00 [facility] Comment on above: Performed By: #### L [id number] #### [facility] ([facility]) [address] [place] [address] Monocytes/100 WBC (Bld) 5.2 % Normal 5.0-12.0 [facility] Comment on above: Performed By: #### L [id number] #### [facility] ([facility]) [address] [place] [address] Neutrophils (Bld) [#/Vol] 6.22 10*3/uL Normal 1.60-7.60 [facility] Comment on above: Performed By: #### L [id number] #### [facility] ([facility]) [address] [place] [address] Neutrophils/100 WBC (Bld) 76.4 % High 40.0-72.0 [facility] Comment on above: Performed By: #### L [id number] #### [facility] ([facility]) [address] [address] NRBC (PER 100 WBCS) BY AUTOMATED COUNT 0.0 % Normal 0 [facility] Comment on above: Performed By: #### L [id number] #### [facility] ([facility]) [address] [address] PLATELETS (10*3/UL) IN BLOOD AUTOMATED COUNT 374 10*3/uL Normal 150-400 [facility] Comment on above: Performed By: #### L [id number] #### [facility] ([facility]) [address] [address] RBC (Bld) [#/Vol] 4.69 10*6/uL Normal 3.80-5.00 [facility] Comment on above: Performed By: #### L [id number] #### [facility] ([facility]) [address] [address] WBC (Bld) [#/Vol] 8.14 10*3/uL Normal 4.00-10.60 [facility] Comment on above: Performed By: #### L [id number] #### [facility] ([facility]) [address] [place] [address] COMPREHENSIVE METABOLIC PANE Jonathan 08-26-2023 Albumin [Mass/Vol] 4.7 g/dL Normal 3.5-5.7 [facility] Comment on above: Performed By: #### L [id number] ####[facility] ([facility])[address] [place] [address] ALP [Catalytic activity/Vol] 90 U/L Normal 34-104 [facility] Comment on above: Performed By: #### L [id number] ####[facility] ([facility])[address] [place] [address] ALT [Catalytic activity/Vol] 26 U/L Normal 7-52 [facility] Comment on above: Performed By: #### L [id number] ####[facility] ([facility])[address] [place] [address] Anion gap [Moles/Vol] 12 mmol/L Normal 7-20 [facility] Comment on above: Performed By: #### L [id number] ####[facility] ([facility])[address] [place] [address] AST [Catalytic activity/Vol] 22 U/L Normal 13-39 [facility] Comment on above: Performed By: #### L [id number] ####[facility] ([facility])[address] [place] [address] Bilirubin [Mass/Vol] 0.4 mg/dL Normal 0.3-1.0 [facility] Comment on above: Performed By: #### L [id number] ####[facility] ([facility])[address] [place] [address] Calcium [Mass/Vol] 9.6 mg/dL Normal 8.6-10.3 [facility] Comment on above: Performed By: #### L [id number] ####[facility] ([facility])[address] [place] [address] Chloride [Moles/Vol] 103 mmol/L Normal 98-107 [facility] Comment on above: Performed By: #### L [id number] ####[facility] ([facility])[address] [place] [address] CO2 [Moles/Vol] 26 mmol/L Normal 21-31 [facility] Comment on above: Performed By: #### L [id number] ####[facility] ([facility])[address] [place] [address] Creatinine [Mass/Vol] 1.12 mg/dL Normal 0.60-1.20 [facility] Comment on above: Performed By: #### L [id number] ####[facility] ([facility])[address] [place] [address] GLOMERULAR FILTRATION RATE ML/MIN/1.73 SQ M.PREDICTED 61.0 mL/min/1.73m*2 Normal >60.0 [facility] Comment on above: Result Comment: The [facility]???s estimated glomerular filtration rate (eGFR) will no [...] of individuals. Performed By: #### L [id number] ####[facility] ([facility])[address] [place] [address] Glucose [Mass/Vol] 125 mg/dL High 70-100 [facility] Comment on above: Performed By: #### L [id number] ####[facility] ([facility])[address] [place] [address] Potassium [Moles/Vol] 3.1 mmol/L Low 3.5-5.1 [facility] Comment on above: Performed By: #### L [id number] ####[facility] ([facility])[address] [place] [address] Protein [Mass/Vol] 7.4 g/dL Normal 6.0-8.3 [facility] Comment on above: Performed By: #### L [id number] ####[facility] ([facility])[address] [place] [address] Sodium [Moles/Vol] 138 mmol/L Normal 136-145 [facility] Comment on above: Performed By: #### L [id number] ####[facility] ([facility])[address] [place] [address] Urea nitrogen [Mass/Vol] 15 mg/dL Normal 7-25 [facility] Comment on above: Performed By: #### L [id number] ####[facility] ([facility])[address] [place] [address] UREA NITROGEN/CREATININE (MASS RATIO) IN SER/PLAS 13.4 Normal [facility] Comment on above: Performed By: #### L [id number] ####[facility] ([facility])[address] [place] [address] HEMOGLOBIN A1Con 08-26-2023 Glucose [Mass/Vol] 108 mg/dL Normal [facility] Comment on above: Performed By: #### L [id number] #### [facility] TISSUE TYPING (HISTOTRAC) [address] [place] [address] [facility] HbA1c (Bld) [Mass fraction] 5.4 % Normal 4.0-6.0 [facility] Comment on above: Performed By: #### L [id number] #### [facility] TISSUE TYPING (HISTOTRAC) [address] [place] [address] [facility] LIPID PANELon 08-26-2023 CHOL/HDL 4.7 mg/dL Normal [facility] Comment on above: Performed By: #### L [id number] #### [facility] TISSUE TYPING (HISTOTRAC) [address] [place] [address] [facility] Cholesterol [Mass/Vol] 198 mg/dL Normal 120-200 [facility] Comment on above: Performed By: #### L [id number] #### [facility] TISSUE TYPING (HISTOTRAC) [address] [place] [address] [place] Magnesium [Mass/Vol] 248 mg/dL High 40-149 [facility] Comment on above: Result Comment: TRIG LYCERIDE REFERENCE RANGE: 20 YEARS AND OLDER CARDIOVASCULAR RISK LESS THAN 150 mg/dL LOW RISK 150 TO 199 mg/dL BORDERLINE RISK 200 mg/dL AND GREATER HIGH RISK Performed By: #### L [id number] #### [facility] TISSUE TYPING (HISTOTRAC) [address] [place] [address] [facility] Magnesium [Mass/Vol] 106 mg/dL Normal 0-160 [facility] Comment on above: Performed By: #### L [id number] #### [facility] TISSUE TYPING (HISTOTRAC) [address] [place] [address] [facility] Magnesium [Mass/Vol] 42 mg/dL Normal 23-92 [facility] Comment on above: Performed By: #### L [id number] #### [facility] TISSUE TYPING (HISTOTRAC) [address] [place] [address] [facility] NON HDL CHOL. (LDL+VLDL) 156 Normal [facility] Comment on above: Performed By: #### L [id number] #### [facility] TISSUE TYPING (HISTOTRAC) [address] [place] [address] [facility] TOTAL VLDL-C 50 mg/dL High 0-40 [facility] Comment on above: Performed By: #### L [id number] #### [facility] TISSUE TYPING (HISTOTRAC) [address] [place] [address] [facility] Labon 08-26-2023 Lab [id number] Antonio Puri i 1975 F Date Provider Department [place] 08/26/2023 2245-[facility] OPD LAB RESOURCE [facility]PD [place] [facility] Family History Problem Relation Age of Onset Fibromyalgia Mother Heart disease Father Hypertension Sister Polycystic kidney disease Sister Hypertension Brother Polycystic kidney disease Brother Family Status - Relation Status Age at Mother Father Sister Brother Normal [facility] MAGNESIUMon 08-26-2023 Magnesium [Mass/Vol] 1.5 mg/dL Low 1.9-2.7 [facility] Comment on above: Performed By: #### L [id number] #### [facility] (BE[facility]ER) [address] [place] [address] PHOSPHORUSon 08-26-2023 Magnesium [Mass/Vol] 2.9 mg/dL Normal 2.5-5.0 [facility] Comment on above: Performed By: #### L [id number] ####[facility] (BEAKER)[address] [place] [address] TACROLIMUS LEVELon Tacrolimus (Bld) [Mass/Vol] 9.2 ng/mL Normal 5.0-20.0 [facility] Comment on above: Result Comment: The [employer] Tacrolimus assay is a delayed one-step immunoassay for the quantitative determination of tacrolimus in human whole blood using the chemiluminescent microparticle immunoassay (CMIA) technology with flexible assay protocols, referred to as Chemiflex. Performed By: #### L [id number] #### [facility] TISSUE TYPING (HISTOTRAC) [address] [place] [address] [facility] URIC ACIDon 08-26-2023 Magnesium [Mass/Vol] 5.1 mg/dL Normal 2.3-6.6 [facility] Comment on above: Performed By: #### L [id number] ####[facility] ([facility]ER)[address] [place] [address] COMPREHENSIVE METABOLIC PANE Jonathan 08-06-2023 Albumin [Mass/Vol] 4.7 g/dL Normal 3.5-5.7 [facility] Comment on above: Performed By: #### L [id number] #### [facility] TISSUE TYPING (HISTOTRAC) [address] [place], [place] [address] ALP [Catalytic activity/Vol] 85 U/L Normal 34-104 [facility] Comment on above: Performed By: #### L [id number] #### [facility] TISSUE TYPING (HISTOTRAC) [address] [place], [place] [address] ALT [Catalytic activity/Vol] 25 U/L Normal 7-52 [facility] Comment on above: Performed By: #### L [id number] #### [facility] TISSUE TYPING (HISTOTRAC) [address] [place] [address] [facility] Anion gap [Moles/Vol] 14 mmol/L Normal 7-20 [facility] Comment on above: Performed By: #### L [id number] #### [facility] TISSUE TYPING (HISTOTRAC) [address] [place] [address] [place] AST [Catalytic activity/Vol] 23 U/L Normal 13-39 [facility] Comment on above: Performed By: #### L [id number] #### [facility] TISSUE TYPING (HISTOTRAC) [address] [place] [address] [place] Bilirubin [Mass/Vol] 0.5 mg/dL Normal 0.3-1.0 [facility] Comment on above: Performed By: #### L [id number] #### [facility] TISSUE TYPING (HISTOTRAC) [address] [place] [address] [place] Calcium [Mass/Vol] 9.5 mg/dL Normal 8.6-10.3 [facility] Comment on above: Performed By: #### L [id number] #### [facility] TISSUE TYPING (HISTOTRAC) [address] [place] [address] [place] Chloride [Moles/Vol] 105 mmol/L Normal 98-107 [facility] Comment on above: Performed By: #### L [id number] #### [facility] TISSUE TYPING (HISTOTRAC) [address] [place] [address] [place] CO2 [Moles/Vol] 21 mmol/L Normal 21-31 [facility] Comment on above: Performed By: #### L [id number] #### [facility] TISSUE TYPING (HISTOTRAC) [address] [place] [address] [place] Creatinine [Mass/Vol] 1.23 mg/dL High 0.60-1.20 [facility] Comment on above: Performed By: #### L [id number] #### [facility] TISSUE TYPING (HISTOTRAC) [address] [place] [address] [facility] GLOMERULAR FILTRATION RATE ML/MIN/1.73 SQ M.PREDICTED 54.5 mL/min/1.73m*2 Low >60.0 [facility] Comment on above: Result Comment: The [facility]???s estimated glomerular filtration rate (eGFR) will no [...] group of individuals. Performed By: #### L [id number] #### [facility] TISSUE TYPING (HISTOTRAC) [address] [place] [address] [place] Glucose [Mass/Vol] 133 mg/dL High 70-100 [facility] Comment on above: Performed By: #### L [id number] #### [facility] TISSUE TYPING (HISTOTRAC) [address] [place] [address] [place] Potassium [Moles/Vol] 3.4 mmol/L Low 3.5-5.1 [facility] Comment on above: Performed By: #### L [id number] #### [facility] TISSUE TYPING (HISTOTRAC) [address] [place] [address] [facility] Protein [Mass/Vol] 7.4 g/dL Normal 6.0-8.3 [facility] Comment on above: Performed By: #### L [id number] #### [facility] TISSUE TYPING (HISTOTRAC) [address] [place] [address] [place] Sodium [Moles/Vol] 137 mmol/L Normal 136-145 [facility] Comment on above: Performed By: #### L [id number] #### [facility] TISSUE TYPING (HISTOTRAC) [address] [place] [address] [place] Urea nitrogen [Mass/Vol] 14 mg/dL Normal 7-25 [facility] Comment on above: Performed By: #### L [id number] #### [facility] TISSUE TYPING (HISTOTRAC) [address] [place] [address] [place] UREA NITROGEN/CREATININE (MASS RATIO) IN SER/PLAS 11.4 Normal [facility] Comment on above: Performed By: #### L [id number] #### [facility] TISSUE TYPING (HISTOTRAC) [address] [place] [address] [place] Labon 08-06-2023 Lab [id number] Antonio Puri i 1975 F Date Provider Department [place] 08/06/2023 2245-[facility] OPD LAB RESOURCE [facility] OPD [facility] Family History Problem Relation Age of Onset Fibromyalgia Mother Heart disease Father Hypertension Sister Polycystic kidney disease Sister Hypertension Brother Polycystic kidney disease Brother Family Status - Relation Status Age at Mother Father Sister Brother Normal [facility] Orders Onlyon 08-06-2023 Orders Only [id number] Antonio Puri i 1975 F Date Provider Department Center 08/06/2023 Gino3-[facility] TXP None Family History Problem Relation Age of Onset Fibromyalgia Mother Heart disease Father Hypertension Sister Polycystic kidney disease Sister Hypertension Brother Polycystic kidney disease Brother Family Status - Relation Status Age at Mother Father Sister Brother Normal [facility] SINGLE ANTIGEN CLASS Ion AB SCREEN COMMENTS No Class I donor spe cific antibody identified Normal [facility] Comment on above: Order Comment: To be used after initial monthly order expires Performed By: #### L [id number] #### [facility] ([facility]) [address] [place] [address] CLASS I TESTED DATE Normal [facility] Comment on above: Order Comment: To be used after initial monthly order expires Performed By: #### L [id number] #### [facility] ([facility]) [address] [place] [address] SINGLE ANTIGEN CLASS 1 TEST METHOD Class I Single Antigen Normal [facility] Comment on above: Order Comment: To be used after initial monthly order expires Performed By: #### L [id number] #### [facility] ([facility]) [address] [place] [address] SINGLE ANTIGEN CLASS IIon AB SCREEN COMMENTS No Class II donor specific antibody identified Normal [facility] Comment on above: Order Comment: To be used after initial monthly order expires Performed By: #### L [id number] ####[facility] TISSUE TYPING (HISTOTRAC)[address] [place] [address] [place] CLASS II TESTED DATE Normal [facility] Comment on above: Order Comment: To be used after initial monthly order expires Performed By: #### L [id number] ####[facility] TISSUE TYPING (HISTOTRAC)[address] SIGNED BY Signed by Nelson escamilla C[facility] PARKER(ASCP), [facility] [employer] Immun[facility] Normal [facility] Comment on above: Order Comment: To be used after initial monthly order expires Performed By: #### L [id number] ####[facility] TISSUE TYPING (HISTOTRAC)[address] [place], [place] [address] Result Comment: Clas s I Antigen Microbeads Performed By: #### L [id number] #### [facility] (BEAKER) [address] [place] [address] SINGLE ANTIGEN CLASS 2 TEST METHOD Class II Single Antigen Normal [facility] Comment on above: Order Comment: To be used after initial monthly order expires Result Comment: Clas s II Antigen Microbeads Performed By: #### L [id number] ####[facility] TISSUE TYPING (HISTOTRAC)[address] MM screening mammo BI w/CADo n 07-30-2023 MM screening mammo BI w/CAD [facility] [place] [address] Mammography Report Signed Patient: Mandeep Puri MR#: [id number] 15 : 1975 Acct:[id number] Age/Sex: 47 / F ADM Date: 07/30/23 Loc: [place] Room: Type: [facility] Attending Dr: [...] mammogram. Impression dictated by: Evan Messina Jr., aJylan07/30/2023 4:05 PM Dictation Location: [facility] Transcribed By: [facility] 07/30/231604 Dictated By: Evan Messina Jr, DO 07/30/231603 Signed By: 07/30/231604 Normal The Replaced By [facility] CBC WITH AUTO DIFFERENTIALon 07-24-2023 Basophils (Bld) [#/Vol] 0.06 10*3/uL Normal 0.00-0.20 [facility] Comment on above: Performed By: #### L [id number] ####[facility] (BEAKER)[address] [facility] [place] [address] Basophils/100 WBC (Bld) 0.7 % Normal 0.0-1.0 [facility] Comment on above: Performed By: #### L [id number] ####[facility] (BEAKER)[address] [place] [address] Eosinophils (Bld) [#/Vol] 0.28 10*3/uL Normal 0.00-0.50 [facility] Comment on above: Performed By: #### L [id number] ####[facility] (BEAKER)[address] [place] [address] Eosinophils/100 WBC (Bld) 3.3 % Normal 0.0-6.0 [facility] Comment on above: Performed By: #### L [id number] ####[facility] (BEAKER)[address] [place] [address] Erythrocyte distribution width (RBC) [Ratio] 14.6 % Normal 11.5-15.0 [facility] Comment on above: Performed By: #### L [id number] ####[facility] (BEAKER)[address] [place] [address] ERYTHROCYTE MEAN CORPUSCULAR HEMOGLOBIN CONCENTRATION (G/DL) BY AUTOMATED 33.2 g/dL Normal 32.0-35.0 [facility] Comment on above: Performed By: #### L [id number] ####[facility] ([facility])[address] [place] [address] Hematocrit (Bld) [Volume fraction] 39.7 % Normal 36.0-48.0 [facility] Comment on above: Performed By: #### L [id number] ####[facility] ([facility])[address] [place] [address] Hemoglobin (Bld) [Mass/Vol] 13.2 g/dL Normal 12.0-15.0 [facility] Comment on above: Performed By: #### L [id number] ####[facility] ([facility] [place] [address] Immature granulocytes (Bld) [#/Vol] 0.09 10*3/uL Normal 0.00-0.20 [facility] Comment on above: Performed By: #### L [id number] ####[facility] (BEAKER)[address] [place] [address] Immature granulocytes/100 WBC (Bld) 1.1 % High 0.0-1.0 [facility] Comment on above: Performed By: #### L [id number] ####[facility] (BEAKER)[address] [place] [address] Lymphocytes (Bld) [#/Vol] 1.41 10*3/uL Normal 1.20-4.00 [facility] Comment on above: Performed By: #### L [id number] ####[facility] (BEAKER)[address] [place] [address] Lymphocytes/100 WBC (Bld) 16.5 % Low 20.0-45.0 [facility] Comment on above: Performed By: #### L [id number] ####[facility] (BEAKER)[address] [place] [address] MCH (RBC) [Entitic mass] 28.9 pg Normal 27.0-33.0 [facility] Comment on above: Performed By: #### L [id number] ####[facility] (BEAKER)[address] [place] [address] MCV (RBC) [Entitic vol] 86.9 fL Normal 82.0-98.0 [facility] Comment on above: Performed By: #### L [id number] ####[facility] (BEAKER)[address] [place] [address] Monocytes (Bld) [#/Vol] 0.44 10*3/uL Normal 0.10-1.00 [facility] Comment on above: Performed By: #### L [id number] ####[facility] (BEAKER)[address] [place] [address] Monocytes/100 WBC (Bld) 5.1 % Normal 5.0-12.0 [facility] Comment on above: Performed By: #### L [id number] ####[facility] (BEAKER)[address] [place] [address] Neutrophils (Bld) [#/Vol] 6.28 10*3/uL Normal 1.60-7.60 [facility] Comment on above: Performed By: #### L [id number] ####[facility] (BEAKER)[address] [place] [address] Neutrophils/100 WBC (Bld) 73.3 % High 40.0-72.0 [facility] Comment on above: Performed By: #### L [id number] ####[facility] (BEAKER)[address] [place] [address] NRBC (PER 100 WBCS) BY AUTOMATED COUNT 0.0 % Normal 0 [facility] Comment on above: Performed By: #### L [id number] ####[facility] ([facility])[address] [place] [address] PLATELETS (10*3/UL) IN BLOOD AUTOMATED COUNT 371 10*3/uL Normal 150-400 [facility] Comment on above: Performed By: #### L [id number] ####[facility] ([facility])[address] [place] [address] RBC (Bld) [#/Vol] 4.57 10*6/uL Normal 3.80-5.00 [facility] Comment on above: Performed By: #### L [id number] ####[facility] ([facility])[address] [place] [address] WBC (Bld) [#/Vol] 8.56 10*3/uL Normal 4.00-10.60 [facility] Comment on above: Performed By: #### L [id number] ####[facility] [facility] ([facility])[address] [place] [address] Labon 07-24-2023 Lab [id number] Antonio Puri i 1975 F Date Provider Department Center 07/24/2023 2245-[facility] OPD LAB RESOURCE [facility] OPD [facility] Family History Problem Relation Age of Onset Fibromyalgia Mother Heart disease Father Hypertension Sister Polycystic kidney disease Sister Hypertension Brother Polycystic kidney disease Brother Family Status - Relation Status Age at Mother Father Sister Brother Normal [facility] Orders Onlyon 07-24-2023 Orders Only [id number] Khushi,Brand i 1975 F Date Provider Department Center 07/24/2023 1971[place] Family History Problem Relation Age of Onset Fibromyalgia Mother Heart disease Father Hypertension Sister Polycystic kidney disease Sister Hypertension Brother Polycystic kidney disease Brother Family Status - Relation Status Age at Mother Father Sister Brother Normal [facility] BASIC METABOLIC PANELon 07-06 Anion gap [Moles/Vol] 16 mmol/L Normal 7-20 [facility] Comment on above: Performed By: #### L [id number] ####[facility] ([facility])[address] [place] [address] Calcium [Mass/Vol] 9.7 mg/dL Normal 8.6-10.3 [facility] Comment on above: Performed By: #### L [id number] ####[facility] ([facility])[address] [place] [address] Chloride [Moles/Vol] 104 mmol/L Normal 98-107 [facility] Comment on above: Performed By: #### L [id number] ####[facility] ([facility])[address] [place] [address] CO2 [Moles/Vol] 23 mmol/L Normal 21-31 [facility] Comment on above: Performed By: #### L [id number] ####[facility] ([facility])[address] [place] [address] Creatinine [Mass/Vol] 1.18 mg/dL Normal 0.60-1.20 [facility] Comment on above: Performed By: #### L [id number] ####[facility] ([facility])[address] [place] [address] GLOMERULAR FILTRATION RATE ML/MIN/1.73 SQ M.PREDICTED 57.3 mL/min/1.73m*2 Low >60.0 [facility] Comment on above: Result Comment: The [facility]???s estimated glomerular filtration rate (eGFR) will no [...] of individuals. Performed By: #### L [id number] ####[facility] ([facility])[address] [place] [address] Glucose [Mass/Vol] 134 mg/dL High 70-100 [facility] Comment on above: Performed By: #### L [id number] ####[facility] ([facility])[address] [place] [address] Potassium [Moles/Vol] 3.5 mmol/L Normal 3.5-5.1 [facility] Comment on above: Performed By: #### L [id number] ####[facility] ([facility])[address] [place] [address] Sodium [Moles/Vol] 139 mmol/L Normal 136-145 [facility] Comment on above: Performed By: #### L [id number] ####[facility] ([facility])[address] [place] [address] Urea nitrogen [Mass/Vol] 16 mg/dL Normal 7-25 [facility] Comment on above: Performed By: #### L [id number] ####[facility] ([facility])[address] [place] [address] UREA NITROGEN/CREATININE (MASS RATIO) IN SER/PLAS 13.6 Normal [facility] Comment on above: Performed By: #### L [id number] ####[facility] ([facility])[address] [place] [address] CBC WITH AUTO DIFFERENTIALon 07-17-2023 Basophils (Bld) [#/Vol] 0.05 10*3/uL Normal 0.00-0.20 [facility] Comment on above: Performed By: #### L [id number] ####[facility] ([facility])[address] [place] [address] Basophils/100 WBC (Bld) 0.6 % Normal 0.0-1.0 [facility] Comment on above: Performed By: #### L [id number] ####[facility] ([facility])[address] [place] [address] Eosinophils (Bld) [#/Vol] 0.21 10*3/uL Normal 0.00-0.50 [facility] Comment on above: Performed By: #### L [id number] ####[facility] ([facility])[address] [place] [address] Eosinophils/100 WBC (Bld) 2.7 % Normal 0.0-6.0 [facility] Comment on above: Performed By: #### L [id number] ####[facility] ([facility])[address] [place] [address] Erythrocyte distribution width (RBC) [Ratio] 14.3 % Normal 11.5-15.0 [facility] Comment on above: Performed By: #### L [id number] ####[facility] ([facility])[address] [place] [address] ERYTHROCYTE MEAN CORPUSCULAR HEMOGLOBIN CONCENTRATION (G/DL) BY AUTOMATED 32.6 g/dL Normal 32.0-35.0 [facility] Comment on above: Performed By: #### L [id number] ####[facility] ([facility])[address] [place] [address] Hematocrit (Bld) [Volume fraction] 38.3 % Normal 36.0-48.0 [facility] Comment on above: Performed By: #### L [id number] ####[facility] ([facility])[address] [place] [address] Hemoglobin (Bld) [Mass/Vol] 12.5 g/dL Normal 12.0-15.0 [facility] Comment on above: Performed By: #### L [id number] ####[facility] ([facility])[address] [place] [address] Immature granulocytes (Bld) [#/Vol] 0.10 10*3/uL Normal 0.00-0.20 [facility] Comment on above: Performed By: #### L [id number] ####[facility] ([facility])[address] [place] [address] Immature granulocytes/100 WBC (Bld) 1.3 % High 0.0-1.0 [facility] Comment on above: Performed By: #### L [id number] ####[facility] ([facility])[address] [place] [address] Lymphocytes (Bld) [#/Vol] 1.37 10*3/uL Normal 1.20-4.00 [facility] Comment on above: Performed By: #### L [id number] ####[facility] ([facility])[address] [place] [address] Lymphocytes/100 WBC (Bld) 17.4 % Low 20.0-45.0 [facility] Comment on above: Performed By: #### L [id number] ####[facility] ([facility])[address] [place] [address] MCH (RBC) [Entitic mass] 28.9 pg Normal 27.0-33.0 [facility] Comment on above: Performed By: #### L [id number] ####[facility] ([facility])[address] [place] [address] MCV (RBC) [Entitic vol] 88.5 fL Normal 82.0-98.0 [facility] Comment on above: Performed By: #### L [id number] ####[facility] ([facility])[address] [place] [address] Monocytes (Bld) [#/Vol] 0.44 10*3/uL Normal 0.10-1.00 [facility] Comment on above: Performed By: #### L [id number] ####[facility] ([facility])[address] [place] [address] Monocytes/100 WBC (Bld) 5.6 % Normal 5.0-12.0 [facility] Comment on above: Performed By: #### L [id number] ####[facility] ([facility])[address] [place] [address] Neutrophils (Bld) [#/Vol] 5.69 10*3/uL Normal 1.60-7.60 [facility] Comment on above: Performed By: #### L [id number] ####[facility] ([facility])[address] [place] [address] Neutrophils/100 WBC (Bld) 72.4 % High 40.0-72.0 [facility] Comment on above: Performed By: #### L [id number] ####[facility] ([facility])[address] [place] [address] NRBC (PER 100 WBCS) BY AUTOMATED COUNT 0.0 % Normal 0 [facility] Comment on above: Performed By: #### L [id number] ####[facility] ([facility])[address] [place] [address] PLATELETS (10*3/UL) IN BLOOD AUTOMATED COUNT 349 10*3/uL Normal 150-400 [facility] Comment on above: Performed By: #### L [id number] ####[facility] ([facility])[address] [place] [address] RBC (Bld) [#/Vol] 4.33 10*6/uL Normal 3.80-5.00 [facility] Comment on above: Performed By: #### L [id number] ####[facility] ([facility])[address] [place] [address] WBC (Bld) [#/Vol] 7.86 10*3/uL Normal 4.00-10.60 [facility] Comment on above: Performed By: #### L [id number] ####[facility] ([facility])[address] [place] [address] HEPATIC FUNCTION PANELon Albumin [Mass/Vol] 4.4 g/dL Normal 3.5-5.7 [facility] Comment on above: Performed By: #### L [id number] #### [facility] ([facility]) [address] [place] [address] ALP [Catalytic activity/Vol] 83 U/L Normal 34-104 [facility] Comment on above: Performed By: #### L [id number] #### [facility] ([facility]) [address] [place] [address] ALT [Catalytic activity/Vol] 25 U/L Normal 7-52 [facility] Comment on above: Performed By: #### L [id number] #### [facility] ([facility]) [address] [place] [address] AST [Catalytic activity/Vol] 21 U/L Normal 13-39 [facility] Comment on above: Performed By: #### L [id number] #### [facility] ([facility]) [address] [place] [address] Bilirubin [Mass/Vol] 0.4 mg/dL Normal 0.3-1.0 [facility] Comment on above: Performed By: #### L [id number] #### [facility] ([facility]) [address] [place] [address] Magnesium [Mass/Vol] 0.1 mg/dL Normal 0-0.2 [facility] Comment on above: Performed By: #### L [id number] #### [facility] ([facility]) [address] [place] [address] Protein [Mass/Vol] 7.3 g/dL Normal 6.0-8.3 [facility] Comment on above: Performed By: #### L [id number] #### [facility] ([facility]) [address] [place] [address] Lab[place] 07-17-2023 Lab [id number] Khushi,Brand i 1975 F Date Provider Department Center 07/17/2023 2245-[facility] OPD LAB RESOURCE [facility]PD [place] [facility] Family History Problem Relation Age of Onset Fibromyalgia Mother Heart disease Father Hypertension Sister Polycystic kidney disease Sister Hypertension Brother Polycystic kidney disease Brother Family Status - Relation Status Age at Mother Father Sister Brother Normal [facility] MAGNESIUMon 07-17-2023 Magnesium [Mass/Vol] 1.6 mg/dL Low 1.9-2.7 [facility] Comment on above: Performed By: #### L [id number] #### [facility] TISSUE TYPING (HISTOTRAC) [address] [place] [address] [place] Orders Onlyon 07-17-2023 Orders Only [id number] Khushi,Brand i 1975 F Date Provider Department Center 07/17/2023 1971-[place] None Family History Problem Relation Age of Onset Fibromyalgia Mother Heart disease Father Hypertension Sister Polycystic kidney disease Sister Hypertension Brother Polycystic kidney disease Brother Family Status - Relation Status Age at Mother Father Sister Brother Normal [facility] PHOSPHORUSon 07-17-2023 Magnesium [Mass/Vol] 3.3 mg/dL Normal 2.5-5.0 [facility] Comment on above: Performed By: #### L [id number] ####[facility] ([facility])[address] [place] [address] TACROLIMUS LEVELon Tacrolimus (Bld) [Mass/Vol] 6.5 ng/mL Normal 5.0-20.0 [facility] Comment on above: Result Comment: The [employer] Tacrolimus assay is a delayed one-step immunoassay for the quantitative determination of tacrolimus in human whole blood using the chemiluminescent microparticle immunoassay (CMIA) technology with flexible assay protocols, referred to as Chemiflex. Performed By: #### L [id number] #### [facility] ([facility]) [address] [place] [address] URIC ACIDon 07-17-2023 Magnesium [Mass/Vol] 4.9 mg/dL Normal 2.3-6.6 [facility] Comment on above: Performed By: #### L [id number] #### [facility] TISSUE TYPING (HISTOTRAC) [address] [place] [address] [place] 29on 07-16-2023 29 Addended by: LU STEPHENS on: 07/16/2023 03:23 PM Modules accepted: Orders Normal [facility] Documentationon 07-16-2023 Documentation [id number] Antonio Puri i 1975 F Date Provider Department Center 07/16/2023 1971-[place] None Family History Problem Relation Age of Onset Fibromyalgia Mother Heart disease Father Hypertension Sister Polycystic kidney disease Sister Hypertension Brother Polycystic kidney disease Brother Family Status - Relation Status Age at Mother Father Sister Brother Reason for Visit and Comments: Kidney Follow-up [] Normal [facility] BASIC METABOLIC PANELon 092 Anion gap [Moles/Vol] 13 mmol/L Normal 7-20 [facility] Comment on above: Performed By: #### L [id number] #### [facility] ([facility]) [address] [place] [address] Calcium [Mass/Vol] 9.6 mg/dL Normal 8.6-10.3 [facility] Comment on above: Performed By: #### L [id number] #### [facility] ([facility]) [address] [place] [address] Chloride [Moles/Vol] 102 mmol/L Normal 98-107 [facility] Comment on above: Performed By: #### L [id number] #### [facility] ([facility]) [address] [place] [address] CO2 [Moles/Vol] 25 mmol/L Normal 21-31 [facility] Comment on above: Performed By: #### L [id number] #### [facility] ([facility]) [address] [place] [address] Creatinine [Mass/Vol] 1.26 mg/dL High 0.60-1.20 [facility] Comment on above: Performed By: #### L [id number] #### [facility] ([facility]) [address] [place] [address] GLOMERULAR FILTRATION RATE ML/MIN/1.73 SQ M.PREDICTED 53.0 mL/min/1.73m*2 Low >60.0 [facility] Comment on above: Result Comment: The [facility]???s estimated glomerular filtration rate (eGFR) will no [...] group of individuals. Performed By: #### L [id number] #### [facility] ([facility]) [address] [place] [address] Glucose [Mass/Vol] 128 mg/dL High 70-100 [facility] Comment on above: Performed By: #### L [id number] #### [facility] ([facility]) [address] [place] [address] Potassium [Moles/Vol] 3.1 mmol/L Low 3.5-5.1 [facility] Comment on above: Performed By: #### L [id number] #### [facility] ([facility]) [address] [place] [address] Sodium [Moles/Vol] 137 mmol/L Normal 136-145 [facility] Comment on above: Performed By: #### L [id number] #### [facility] ([facility]) [address] [place] [address] Urea nitrogen [Mass/Vol] 14 mg/dL Normal 7-25 [facility] Comment on above: Performed By: #### L [id number] #### [facility] ([facility]) [address] [place] [address] UREA NITROGEN/CREATININE (MASS RATIO) IN SER/PLAS 11.1 Normal [facility] Comment on above: Performed By: #### L [id number] #### [facility] ([facility]) [address] [place] [address] CBC WITH AUTO DIFFERENTIALon 06-28-2023 Basophils (Bld) [#/Vol] 0.06 10*3/uL Normal 0.00-0.20 [facility] Comment on above: Performed By: #### L [id number] ####[facility] ([facility])[address] [place] [address] Basophils/100 WBC (Bld) 0.6 % Normal 0.0-1.0 [facility] Comment on above: Performed By: #### L [id number] ####[facility] ([facility])[address] [place] [address] Eosinophils (Bld) [#/Vol] 0.18 10*3/uL Normal 0.00-0.50 [facility] Comment on above: Performed By: #### L [id number] ####[facility] ([facility])[address] [place] [address] Eosinophils/100 WBC (Bld) 1.8 % Normal 0.0-6.0 [facility] Comment on above: Performed By: #### L [id number] ####[facility] ([facility])[address] [place] [address] Erythrocyte distribution width (RBC) [Ratio] 14.5 % Normal 11.5-15.0 [facility] Comment on above: Performed By: #### L [id number] ####[facility] ([facility])[address] [place] [address] ERYTHROCYTE MEAN CORPUSCULAR HEMOGLOBIN CONCENTRATION (G/DL) BY AUTOMATED 33.1 g/dL Normal 32.0-35.0 [facility] Comment on above: Performed By: #### L [id number] ####[facility] ([facility])[address] [place] [address] Hematocrit (Bld) [Volume fraction] 40.5 % Normal 36.0-48.0 [facility] Comment on above: Performed By: #### L [id number] ####[facility] ([facility])[address] [place] [address] Hemoglobin (Bld) [Mass/Vol] 13.4 g/dL Normal 12.0-15.0 [facility] Comment on above: Performed By: #### L [id number] ####[facility] ([facility])[address] [place] [address] Immature granulocytes (Bld) [#/Vol] 0.13 10*3/uL Normal 0.00-0.20 [facility] Comment on above: Performed By: #### L [id number] ####[facility] ([facility])[address] [place] [address] Immature granulocytes/100 WBC (Bld) 1.3 % High 0.0-1.0 [facility] Comment on above: Performed By: #### L [id number] ####[facility] ([facility])[address] [place] [address] Lymphocytes (Bld) [#/Vol] 1.30 10*3/uL Normal 1.20-4.00 [facility] Comment on above: Performed By: #### L [id number] ####[facility] ([facility])[address] [place] [address] Lymphocytes/100 WBC (Bld) 13.3 % Low 20.0-45.0 [facility] Comment on above: Performed By: #### L [id number] ####[facility] ([facility])[address] [place] [address] MCH (RBC) [Entitic mass] 29.2 pg Normal 27.0-33.0 [facility] Comment on above: Performed By: #### L [id number] ####[facility] ([facility])[address] [place] [address] MCV (RBC) [Entitic vol] 88.2 fL Normal 82.0-98.0 [facility] Comment on above: Performed By: #### L [id number] ####[facility] ([facility])[address] [place] [address] Monocytes (Bld) [#/Vol] 0.51 10*3/uL Normal 0.10-1.00 [facility] Comment on above: Performed By: #### L [id number] ####[facility] ([facility])[address] [place] [address] Monocytes/100 WBC (Bld) 5.2 % Normal 5.0-12.0 [facility] Comment on above: Performed By: #### L [id number] ####[facility] ([facility])[address] [place] [address] Neutrophils (Bld) [#/Vol] 7.62 10*3/uL High 1.60-7.60 [facility] Comment on above: Performed By: #### L [id number] ####[facility] ([facility])[address] [place] [address] Neutrophils/100 WBC (Bld) 77.8 % High 40.0-72.0 [facility] Comment on above: Performed By: #### L [id number] ####[facility] ([facility])[address] [place] [address] NRBC (PER 100 WBCS) BY AUTOMATED COUNT 0.0 % Normal 0 [facility] Comment on above: Performed By: #### L [id number] ####[facility] ([facility])[address] [place] [address] PLATELETS (10*3/UL) IN BLOOD AUTOMATED COUNT 334 10*3/uL Normal 150-400 [facility] Comment on above: Performed By: #### L [id number] ####[facility] ([facility])[address] [place] [address] RBC (Bld) [#/Vol] 4.59 10*6/uL Normal 3.80-5.00 [facility] Comment on above: Performed By: #### L [id number] ####[facility] ([facility])[address] [place] [address] WBC (Bld) [#/Vol] 9.80 10*3/uL Normal 4.00-10.60 [facility] Comment on above: Performed By: #### L [id number] ####[facility] ([facility])[address] [place] [address] HEPATIC FUNCTION PANELon Albumin [Mass/Vol] 4.7 g/dL Normal 3.5-5.7 [facility] Comment on above: Performed By: #### L [id number] #### [facility] TISSUE TYPING (HISTOTRAC) [address] [place] [address] [place] ALP [Catalytic activity/Vol] 91 U/L Normal 34-104 [facility] Comment on above: Performed By: #### L [id number] #### [facility] TISSUE TYPING (HISTOTRAC) [address] [place] [address] [place] ALT [Catalytic activity/Vol] 29 U/L Normal 7-52 [facility] Comment on above: Performed By: #### L [id number] #### [facility] TISSUE TYPING (HISTOTRAC) [address] [place] [address] [place] AST [Catalytic activity/Vol] 25 U/L Normal 13-39 [facility] Comment on above: Performed By: #### L [id number] #### [facility] TISSUE TYPING (HISTOTRAC) [address] [place] [address] [place] Bilirubin [Mass/Vol] 0.5 mg/dL Normal 0.3-1.0 [facility] Comment on above: Performed By: #### L [id number] #### [facility] TISSUE TYPING (HISTOTRAC) [address] [place] [address] [place] Magnesium [Mass/Vol] 0.1 mg/dL Normal 0-0.2 [facility] Comment on above: Performed By: #### L [id number] #### [facility] TISSUE TYPING (HISTOTRAC) [address] [place] [address] [place] Protein [Mass/Vol] 7.9 g/dL Normal 6.0-8.3 [facility] Comment on above: Performed By: #### L [id number] #### [facility] TISSUE TYPING (HISTOTRAC) [address] [place] [address] [facility] LIPID PANELon 06-28-2023 CHOL/HDL 4.1 mg/dL Normal [facility] Comment on above: Performed By: #### L [id number] #### [facility] ([facility]) [address] [place] [address] Cholesterol [Mass/Vol] 192 mg/dL Normal 120-200 [facility] Comment on above: Performed By: #### L [id number] #### [facility] ([facility]) [address] [place] [address] Magnesium [Mass/Vol] 228 mg/dL High 40-149 [facility] Comment on above: Result Comment: TRIG LYCERIDE REFERENCE RANGE: 20 YEARS AND OLDER CARDIOVASCULAR RISK LESS THAN 150 mg/dL LOW RISK 150 TO 199 mg/dL BORDERLINE RISK 200 mg/dL AND GREATER HIGH RISK Performed By: #### L [id number] #### [facility] ([facility]) [address] [place] [address] Magnesium [Mass/Vol] 99 mg/dL Normal 0-160 [facility] Comment on above: Performed By: #### L [id number] #### [facility] ([facility]) [address] [place] [address] Magnesium [Mass/Vol] 47 mg/dL Normal 23-92 [facility] Comment on above: Performed By: #### L [id number] #### [facility] ([facility]) [address] [place] [address] NON HDL CHOL. (LDL+VLDL) 145 Normal [facility] Comment on above: Performed By: #### L [id number] #### [facility] ([facility]) [address] [place] [address] TOTAL VLDL-C 46 mg/dL High 0-40 [facility] Comment on above: Performed By: #### L [id number] #### [facility] ([facility]AKER) [address] [place] [address] [place] 06-28-2023 Lab [id number] Antonio Puri i 1975 F Date Provider Department Center 06/28/2023 [id number]PD LAB RESOURCE [facility]PD [facility] C Family History Problem Relation Age of Onset Fibromyalgia Mother Heart disease Father Hypertension Sister Polycystic kidney disease Sister Hypertension Brother Polycystic kidney disease Brother Family Status - Relation Status Age at Mother Father Sister Brother Normal [facility] 06-28-2023 Magnesium [Mass/Vol] 1.4 mg/dL Low 1.9-2.7 [facility] Comment on above: Performed By: #### L [id number] ####[facility] [facility] [place] [address] PHOSPHORUSon 06-28-2023 Magnesium [Mass/Vol] 2.7 mg/dL Normal 2.5-5.0 [facility] Comment on above: Performed By: #### L [id number] ####[facility] ([facility])[address] [place] [address] TACROLIMUS LEVELon Tacrolimus (Bld) [Mass/Vol] 6.9 ng/mL Normal 5.0-20.0 [facility] Comment on above: Result Comment: The [employer] Tacrolimus assay is a delayed one-step immunoassay for the quantitative determination of tacrolimus in human whole blood using the chemiluminescent microparticle immunoassay (CMIA) technology with flexible assay protocols, referred to as Chemiflex. Performed By: #### L [id number] ####[facility] ([facility])[address] [place] [address] URIC ACIDon 06-28-2023 Magnesium [Mass/Vol] 5.0 mg/dL Normal 2.3-6.6 [facility] Comment on above: Performed By: #### L [id number] #### [facility] ([facility]) [address] [place] [address] 36on 06-23-2023 36 I reviewed the case with the resident. I agree with the assessment and plan as documented in the resident's note. Ming Kidd, PharmD, BCTXP Normal [facility] Telephoneon 06-17-2023 Telephone [phone] Antonio Puri i 1975 F Date Provider Department Center 06/17/2023 LIAM CREWS TXP None Family History Problem Relation Age of Onset Fibromyalgia Mother Heart disease Father Hypertension Sister Polycystic kidney disease Sister Hypertension Brother Polycystic kidney disease Brother Family Status - Relation Status Age at Mother Father Sister Brother Reason for Visit and Comments: Transplant Pharmacist - Drug Information [[id number]] Normal [facility] BASIC METABOLIC PANELon 05-07 Anion gap [Moles/Vol] 13 mmol/L Normal 7-20 [facility] Comment on above: Performed By: #### L [id number] #### [facility] ([facility]) [address] [place] [address] Calcium [Mass/Vol] 9.5 mg/dL Normal 8.6-10.3 [facility] Comment on above: Performed By: #### L [id number] #### [facility] ([facility]) [address] [place] [address] Chloride [Moles/Vol] 101 mmol/L Normal 98-107 [facility] Comment on above: Performed By: #### L [id number] #### [facility] ([facility]) [address] [place] [address] CO2 [Moles/Vol] 27 mmol/L Normal 21-31 [facility] Comment on above: Performed By: #### L [id number] #### [facility] ([facility]) [address] [place] [address] Creatinine [Mass/Vol] 1.28 mg/dL High 0.60-1.20 [facility] Comment on above: Performed By: #### L [id number] #### [facility] ([facility]) [address] [place] [address] GLOMERULAR FILTRATION RATE ML/MIN/1.73 SQ M.PREDICTED 52.0 mL/min/1.73m*2 Low >60.0 [facility] Comment on above: Result Comment: The [facility]???s estimated glomerular filtration rate (eGFR) will no [...] individuals. Performed By: #### L [id number] #### [facility] ([facility]) [address] [place] [address] Glucose [Mass/Vol] 163 mg/dL High 70-100 [facility] Comment on above: Performed By: #### L [id number] #### [facility] ([facility]) [address] [place] [address] Potassium [Moles/Vol] 3.1 mmol/L Low 3.5-5.1 [facility] Comment on above: Performed By: #### L [id number] #### [facility] ([facility]) [address] [place] [address] Sodium [Moles/Vol] 138 mmol/L Normal 136-145 [facility] Comment on above: Performed By: #### L [id number] #### [facility] ([facility]) [address] [place] [address] Urea nitrogen [Mass/Vol] 18 mg/dL Normal 7-25 [facility] Comment on above: Performed By: #### L [id number] #### [facility] ([facility]) [address] [place] [address] UREA NITROGEN/CREATININE (MASS RATIO) IN SER/PLAS 14.1 Normal [facility] Comment on above: Performed By: #### L [id number] #### [facility] ([facility]) [address] [place] [address] CBC WITH AUTO DIFFERENTIALon 05-29-2023 Basophils (Bld) [#/Vol] 0.06 10*3/uL Normal 0.00-0.20 [facility] Comment on above: Performed By: #### L [id number] #### [facility] ([facility]) [address] [place] [address] Basophils/100 WBC (Bld) 0.6 % Normal 0.0-1.0 [facility] Comment on above: Performed By: #### L [id number] #### [facility] ([facility]) [address] [place] [address] Eosinophils (Bld) [#/Vol] 0.18 10*3/uL Normal 0.00-0.50 [facility] Comment on above: Performed By: #### L [id number] #### [facility] ([facility]) [address] [place] [address] Eosinophils/100 WBC (Bld) 1.9 % Normal 0.0-6.0 [facility] Comment on above: Performed By: #### L [id number] #### [facility] ([facility]) [address] [place] [address] Erythrocyte distribution width (RBC) [Ratio] 14.3 % Normal 11.5-15.0 [facility] Comment on above: Performed By: #### L [id number] #### [facility] ([facility]) [address] [place] [address] ERYTHROCYTE MEAN CORPUSCULAR HEMOGLOBIN CONCENTRATION (G/DL) BY AUTOMATED 32.4 g/dL Normal 32.0-35.0 [facility] Comment on above: Performed By: #### L [id number] #### [facility] ([facility]) [address] [place] [address] Hematocrit (Bld) [Volume fraction] 37.4 % Normal 36.0-48.0 [facility] Comment on above: Performed By: #### L [id number] #### [facility] ([facility]) [address] [place] [address] Hemoglobin (Bld) [Mass/Vol] 12.1 g/dL Normal 12.0-15.0 [facility] Comment on above: Performed By: #### L [id number] #### [facility] ([facility]) [address] [place] [address] Immature granulocytes (Bld) [#/Vol] 0.17 10*3/uL Normal 0.00-0.20 [facility] Comment on above: Performed By: #### L [id number] #### [facility] ([facility]) [address] [place] [address] Immature granulocytes/100 WBC (Bld) 1.8 % High 0.0-1.0 [facility] Comment on above: Performed By: #### L [id number] #### [facility] ([facility]) [address] [place] [address] Lymphocytes (Bld) [#/Vol] 1.30 10*3/uL Normal 1.20-4.00 [facility] Comment on above: Performed By: #### L [id number] #### [facility] ([facility]) [address] [place] [address] Lymphocytes/100 WBC (Bld) 13.4 % Low 20.0-45.0 [facility] Comment on above: Performed By: #### L [id number] #### [facility] ([facility]) [address] [place] [address] MCH (RBC) [Entitic mass] 28.8 pg Normal 27.0-33.0 [facility] Comment on above: Performed By: #### L [id number] #### [facility] ([facility]) [address] [place] [address] MCV (RBC) [Entitic vol] 89.0 fL Normal 82.0-98.0 [facility] Comment on above: Performed By: #### L [id number] #### [facility] ([facility]) [address] [place] [address] Monocytes (Bld) [#/Vol] 0.56 10*3/uL Normal 0.10-1.00 [facility] Comment on above: Performed By: #### L [id number] #### [facility] ([facility]) [address] [place] [address] Monocytes/100 WBC (Bld) 5.8 % Normal 5.0-12.0 [facility] Comment on above: Performed By: #### L [id number] #### [facility] ([facility]) [address] [place] [address] Neutrophils (Bld) [#/Vol] 7.43 10*3/uL Normal 1.60-7.60 [facility] Comment on above: Performed By: #### L [id number] #### [facility] ([facility]) [address] [place] [address] Neutrophils/100 WBC (Bld) 76.5 % High 40.0-72.0 [facility] Comment on above: Performed By: #### L [id number] #### [facility] ([facility]) [address] [place] [address] NRBC (PER 100 WBCS) BY AUTOMATED COUNT 0.0 % Normal 0 [facility] Comment on above: Performed By: #### L [id number] #### [facility] ([facility]) [address] [place] [address] PLATELETS (10*3/UL) IN BLOOD AUTOMATED COUNT 331 10*3/uL Normal 150-400 [facility] Comment on above: Performed By: #### L [id number] #### [facility] ([facility]) [address] [place] [address] RBC (Bld) [#/Vol] 4.20 10*6/uL Normal 3.80-5.00 [facility] Comment on above: Performed By: #### L [id number] #### [facility] ([facility]) [address] [place] [address] WBC (Bld) [#/Vol] 9.70 10*3/uL Normal 4.00-10.60 [facility] Comment on above: Performed By: #### L [id number] #### [facility] ([facility]) [address] [place] [address] HEPATIC FUNCTION PANELon Albumin [Mass/Vol] 4.5 g/dL Normal 3.5-5.7 [facility] Comment on above: Performed By: #### L [id number] ####[facility] ([facility])[address] [place] [address] ALP [Catalytic activity/Vol] 87 U/L Normal 34-104 [facility] Comment on above: Performed By: #### L [id number] ####[facility] ([facility])[address] [place] [address] ALT [Catalytic activity/Vol] 29 U/L Normal 7-52 [facility] Comment on above: Performed By: #### L [id number] ####[facility] ([facility])[address] [place] [address] AST [Catalytic activity/Vol] 24 U/L Normal 13-39 [facility] Comment on above: Performed By: #### L [id number] ####[facility] ([facility])[address] [place] [address] Bilirubin [Mass/Vol] 0.4 mg/dL Normal 0.3-1.0 [facility] Comment on above: Performed By: #### L [id number] ####[facility] ([facility])[address] [place] [address] Magnesium [Mass/Vol] 0.0 mg/dL Normal 0-0.2 [facility] Comment on above: Performed By: #### L [id number] ####[facility] ([facility])[address] [place] [address] Protein [Mass/Vol] 7.4 g/dL Normal 6.0-8.3 [facility] Comment on above: Performed By: #### L [id number] ####[facility] ([facility])[address] [place] [address] Labon 05-29-2023 Lab [id number] Antonio Puri i 1975 F Date Provider Department Center 05/29/2023 2245-[facility] OPD LAB RESOURCE [facility] [place] [facility] Family History Problem Relation Age of Onset Fibromyalgia Mother Heart disease Father Hypertension Sister Polycystic kidney disease Sister Hypertension Brother Polycystic kidney disease Brother Family Status - Relation Status Age at Mother Father Sister Brother Normal [facility] MAGNESIUMon 05-29-2023 Magnesium [Mass/Vol] 1.7 mg/dL Low 1.9-2.7 [facility] Comment on above: Performed By: #### L [id number] #### [facility] ([facility]) [address] [place] [address] PHOSPHORUSon 05-29-2023 Magnesium [Mass/Vol] 2.8 mg/dL Normal 2.5-5.0 [facility] Comment on above: Performed By: #### L [id number] #### [facility] ([facility]) [address] [place] [address] TACROLIMUS LEVELon Tacrolimus (Bld) [Mass/Vol] 5.6 ng/mL Normal 5.0-20.0 [facility] Comment on above: Result Comment: The [employer] Tacrolimus assay is a delayed one-step immunoassay for the quantitative determination of tacrolimus in human whole blood using the chemiluminescent microparticle immunoassay (CMIA) technology with flexible assay protocols, referred to as Chemiflex. Performed By: #### L [id number] ####[facility] ([facility])[address] [place] [address] URIC ACIDon 05-29-2023 Magnesium [Mass/Vol] 5.0 mg/dL Normal 2.3-6.6 [facility] Comment on above: Performed By: #### L [id number] #### [facility] ([facility]) [address] [place] [address] BASIC METABOLIC PANELon 04-06 Anion gap [Moles/Vol] 13 mmol/L Normal 7-20 [facility] Comment on above: Performed By: #### L [id number] #### [facility] ([facility]) [address] [place] [address] Calcium [Mass/Vol] 9.5 mg/dL Normal 8.6-10.3 [facility] Comment on above: Performed By: #### L [id number] #### [facility] ([facility]) [address] [place] [address] Chloride [Moles/Vol] 104 mmol/L Normal 98-107 [facility] Comment on above: Performed By: #### L [id number] #### [facility] ([facility]) [address] [place] [address] CO2 [Moles/Vol] 22 mmol/L Normal 21-31 [facility] Comment on above: Performed By: #### L [id number] #### [facility] ([facility]) [address] [place] [address] Creatinine [Mass/Vol] 1.25 mg/dL High 0.60-1.20 [facility] Comment on above: Performed By: #### L [id number] #### [facility] ([facility]) [address] [place] [address] GLOMERULAR FILTRATION RATE ML/MIN/1.73 SQ M.PREDICTED 53.5 mL/min/1.73m*2 Low >60.0 [facility] Comment on above: Result Comment: The [facility]???s estimated glomerular filtration rate (eGFR) will no [...] group of individuals. Performed By: #### L [id number] #### [facility] ([facility]) [address] [place] [address] Glucose [Mass/Vol] 189 mg/dL High 70-100 [facility] Comment on above: Performed By: #### L [id number] #### [facility] ([facility]) [address] [place] [address] Potassium [Moles/Vol] 4.0 mmol/L Normal 3.5-5.1 [facility] Comment on above: Performed By: #### L [id number] #### [facility] ([facility]) [address] [place] [address] Sodium [Moles/Vol] 135 mmol/L Low 136-145 [facility] Comment on above: Performed By: #### L [id number] #### [facility] ([facility]) [address] [place] [address] Urea nitrogen [Mass/Vol] 19 mg/dL Normal 7-25 [facility] Comment on above: Performed By: #### L [id number] #### [facility] ([facility]) [address] [place] [address] UREA NITROGEN/CREATININE (MASS RATIO) IN SER/PLAS 15.2 Normal [facility] Comment on above: Performed By: #### L [id number] #### [facility] ([facility]) [address] [place] [address] CBC WITH AUTO DIFFERENTIALon 04-30-2023 Basophils (Bld) [#/Vol] 0.05 10*3/uL Normal 0.00-0.20 [facility] Comment on above: Performed By: #### L [id number] #### [facility] ([facility]) [address] [place] [address] Basophils/100 WBC (Bld) 0.7 % Normal 0.0-1.0 [facility] Comment on above: Performed By: #### L [id number] #### [facility] ([facility]) [address] [place] [address] Eosinophils (Bld) [#/Vol] 0.16 10*3/uL Normal 0.00-0.50 [facility] Comment on above: Performed By: #### L [id number] #### [facility] ([facility]) [address] [place] [address] Eosinophils/100 WBC (Bld) 2.1 % Normal 0.0-6.0 [facility] Comment on above: Performed By: #### L [id number] #### [facility] ([facility]) [address] [place] [address] Erythrocyte distribution width (RBC) [Ratio] 14.3 % Normal 11.5-15.0 [facility] Comment on above: Performed By: #### L [id number] #### [facility] ([facility]) [address] [place] [address] ERYTHROCYTE MEAN CORPUSCULAR HEMOGLOBIN CONCENTRATION (G/DL) BY AUTOMATED 33.1 g/dL Normal 32.0-35.0 [facility] Comment on above: Performed By: #### L [id number] #### [facility] ([facility]) [address] [place] [address] Hematocrit (Bld) [Volume fraction] 35.9 % Low 36.0-48.0 [facility] Comment on above: Performed By: #### L [id number] #### [facility] ([facility]) [address] [place] [address] Hemoglobin (Bld) [Mass/Vol] 11.9 g/dL Low 12.0-15.0 [facility] Comment on above: Performed By: #### L [id number] #### [facility] ([facility]) [address] [place] [address] Immature granulocytes (Bld) [#/Vol] 0.12 10*3/uL Normal 0.00-0.20 [facility] Comment on above: Performed By: #### L [id number] #### [facility] ([facility]) [address] [place] [address] Immature granulocytes/100 WBC (Bld) 1.6 % High 0.0-1.0 [facility] Comment on above: Performed By: #### L [id number] #### [facility] ([facility]) [address] [place] [address] Lymphocytes (Bld) [#/Vol] 1.30 10*3/uL Normal 1.20-4.00 [facility] Comment on above: Performed By: #### L [id number] #### [facility] ([facility]) [address] [place] [address] Lymphocytes/100 WBC (Bld) 16.9 % Low 20.0-45.0 [facility] Comment on above: Performed By: #### L [id number] #### [facility] ([facility]) [address] [place] [address] MCH (RBC) [Entitic mass] 29.6 pg Normal 27.0-33.0 [facility] Comment on above: Performed By: #### L [id number] #### [facility] ([facility]) [address] [place] [address] MCV (RBC) [Entitic vol] 89.3 fL Normal 82.0-98.0 [facility] Comment on above: Performed By: #### L [id number] #### [facility] ([facility]) [address] [place] [address] Monocytes (Bld) [#/Vol] 0.46 10*3/uL Normal 0.10-1.00 [facility] Comment on above: Performed By: #### L [id number] #### [facility] ([facility]) [address] [place] [address] Monocytes/100 WBC (Bld) 6.0 % Normal 5.0-12.0 [facility] Comment on above: Performed By: #### L [id number] #### [facility] ([facility]) [address] [place] [address] Neutrophils (Bld) [#/Vol] 5.58 10*3/uL Normal 1.60-7.60 [facility] Comment on above: Performed By: #### L [id number] #### [facility] ([facility]) [address] [place] [address] Neutrophils/100 WBC (Bld) 72.7 % High 40.0-72.0 [facility] Comment on above: Performed By: #### L [id number] #### [facility] ([facility]) [address] [place] [address] NRBC (PER 100 WBCS) BY AUTOMATED COUNT 0.0 % Normal 0 [facility] Comment on above: Performed By: #### L [id number] #### [facility] ([facility]) [address] [place] [address] PLATELETS (10*3/UL) IN BLOOD AUTOMATED COUNT 295 10*3/uL Normal 150-400 [facility] Comment on above: Performed By: #### L [id number] #### [facility] ([facility]) [address] [place] [address] RBC (Bld) [#/Vol] 4.02 10*6/uL Normal 3.80-5.00 [facility] Comment on above: Performed By: #### L [id number] #### [facility] ([facility]) [address] [place] [address] WBC (Bld) [#/Vol] 7.67 10*3/uL Normal 4.00-10.60 [facility] Comment on above: Performed By: #### L [id number] #### [facility] ([facility]) [address] [place] [address] HEPATIC FUNCTION PANELon Albumin [Mass/Vol] 4.6 g/dL Normal 3.5-5.7 [facility] Comment on above: Performed By: #### L [id number] #### [facility] ([facility]) [address] [place] [address] ALP [Catalytic activity/Vol] 82 U/L Normal 34-104 [facility] Comment on above: Performed By: #### L [id number] #### [facility] ([facility]) [address] [place] [address] ALT [Catalytic activity/Vol] 25 U/L Normal 7-52 [facility] Comment on above: Performed By: #### L [id number] #### [facility] ([facility]) [address] [place] [address] AST [Catalytic activity/Vol] 19 U/L Normal 13-39 [facility] Comment on above: Performed By: #### L [id number] #### [facility] ([facility]) [address] [place] [address] Bilirubin [Mass/Vol] 0.5 mg/dL Normal 0.3-1.0 [facility] Comment on above: Performed By: #### L [id number] #### [facility] ([facility]) [address] [place] [address] Magnesium [Mass/Vol] 0.1 mg/dL Normal 0-0.2 [facility] Comment on above: Performed By: #### L [id number] #### [facility] ([facility]) [address] [place] [address] Protein [Mass/Vol] 7.2 g/dL Normal 6.0-8.3 [facility] Comment on above: Performed By: #### L [id number] #### [facility] ([facility]) [address] [place] [address] Labon 04-30-2023 Lab [id number] Antonio Puri i 1975 F Date Provider Department Center 04/30/2023 2245-[facility] OPD LAB RESOURCE [facility] OPD [facility] Family History Problem Relation Age of Onset Fibromyalgia Mother Heart disease Father Hypertension Sister Polycystic kidney disease Sister Hypertension Brother Polycystic kidney disease Brother Family Status - Relation Status Age at Mother Father Sister Brother Normal [facility] MAGNESIUMon 04-30-2023 Magnesium [Mass/Vol] 1.6 mg/dL Low 1.9-2.7 [facility] Comment on above: Performed By: #### L [id number] #### [facility] ([facility]) [address] [place] [address] PANEL REACTIVE ANTIBODYon HOLD SPECIMEN Hold for add-ons. Normal [facility] Comment on above: Result Comment: Auto resulted. Performed By: #### L [id number] ####[facility] TISSUE TYPING (HISTOTRAC)[address] [place] [address] [place] PHOSPHORUSon 04-30-2023 Magnesium [Mass/Vol] 2.3 mg/dL Low 2.5-5.0 [facility] Comment on above: Performed By: #### L [id number] #### [facility] ([facility]) [address] [place] [address] SINGLE ANTIGEN CLASS Ion AB SCREEN COMMENTS No Class I donor spe cific antibody identified Normal [facility] Comment on above: Performed By: #### L [id number] #### [facility] ([facility]) [address] [place] [address] CLASS I TESTED DATE Normal [facility] Comment on above: Performed By: #### L [id number] #### [facility] ([facility]) [address] [place] [address] SINGLE ANTIGEN CLASS 1 TEST METHOD Class I Single Antigen Normal [facility] Comment on above: Performed By: #### L [id number] #### [facility] ([facility]) [address] [place] [address] SINGLE ANTIGEN CLASS IIon AB SCREEN COMMENTS No Class II donor specific antibody identified Normal [facility] Comment on above: Performed By: #### L [id number] #### [facility] TISSUE TYPING (HISTOTRAC) [address] [place] [address] [place] CLASS II TESTED DATE [facility] Comment on above: Performed By: #### L [id number] #### [facility] TISSUE TYPING (HISTOTRAC) [address] [place] [address] [facility] SIGNED BY Signed by Nelson escamilla [facility] PARKER[facility] [employer] [facility] Comment on above: Performed By: #### L [id number] #### [facility] TISSUE TYPING (HISTOTRAC) [address] [place] [address] [facility] Result Comment: Clas s I Antigen Microbeads Performed By: #### L [id number] #### [facility] ([facility]) [address] [place] [address] SINGLE ANTIGEN CLASS 2 TEST METHOD Class II Single Antigen Normal [facility] Comment on above: Result Comment: Clas s II Antigen Microbeads Performed By: #### L [id number] #### [facility] TISSUE TYPING (HISTOTRAC) [address] [place] [address] [place] TACROLIMUS LEVELon Tacrolimus (Bld) [Mass/Vol] 9.3 ng/mL Normal 5.0-20.0 [facility] Comment on above: Result Comment: The [employer] Tacrolimus assay is a delayed one-step immunoassay for the quantitative determination of tacrolimus in human whole blood using the chemiluminescent microparticle immunoassay (CMIA) technology with flexible assay protocols, referred to as Chemiflex. Performed By: #### L [id number] ####[facility] (BEAKER)[address] [place] [address] URIC ACIDon 04-30-2023 Magnesium [Mass/Vol] 4.9 mg/dL Normal 2.3-6.6 [facility] Comment on above: Performed By: #### L [id number] #### [facility] ([facility]AKER) [address] [place] [address] PTH INTACTon 07-30-2022 PTH, Intact 107 pg/mL Critically high 15-65 [facility] Comment on above: Performed By: #### M Edy URIC, RENAL #### [facility] [address] [place] [address] Dr. Hari Palmer FERRITINon 07-29-2022 Ferritin [Mass/Vol] 194.0 ng/mL Critically high 6.2-137.0 [facility] Comment on above: Performed By: #### M Edy URIC, RENAL #### [facility] [address] [address] [address] Hari Palmer HEMOGRAM AND PLATELon 2021 Hematocrit (Bld) [Volume fraction] 32.8 % Critically low 36.0-48.0 [facility] Comment on above: Performed By: #### M Edy URIC, RENAL #### [facility] [address] [address] [address] Hari Palmer Hemoglobin (Bld) [Mass/Vol] 10.8 g/dL Critically low 12.0-16.0 [facility] Comment on above: Performed By: #### M Edy URIC, RENAL #### [facility] [address] [place] [address] Dr. Hari Palmer MCH (RBC) [Entitic mass] 31.7 pg Normal 26.7-34.0 [facility] Comment on above: Performed By: #### M G, URIC, RENAL #### [facility] [address] [address] [address] Hari Palmer MCHC (RBC) [Mass/Vol] 32.9 g/dL Normal 29.9-35.2 [facility] Comment on above: Performed By: #### M G, URIC, RENAL #### [facility] [address] [address] [address] Hari Palmer MCV (RBC) [Entitic vol] 96.2 fL Normal 81.0-99.0 [facility] Comment on above: Performed By: #### M G, URIC, RENAL #### [facility] [address] [address] [address] Hari Palmer PLT 297 103/ul Normal 150-450 [facility] Comment on above: Performed By: #### M G, URIC, RENAL #### [facility] [address] [address] [address] Hari Palmer RBC 3.41 106/ul Critically low 4.20-5.40 [facility] Comment on above: Performed By: #### M G, URIC, RENAL #### [facility] [address] [address] [address] Hari Palmer WBC 7.1 103/ul Normal 4.0-11.0 [facility] Comment on above: Performed By: #### M G, URIC, RENAL #### [facility] [address] [address] [address] Hari Palmer IRON AND TIBCon 07-29-2022 % SATURATION 19.0 % Normal [facility] Comment on above: Performed By: #### M G, URIC, RENAL #### [facility] [address] [address] [address] Hari Palmer Iron [Mass/Vol] 48.0 ug/dL Critically low 50.0-170.0 [facility] Comment on above: Performed By: #### M G, URIC, RENAL #### [facility] [address] [address] [address] Hari Palmer TIBC DIRECT 252.0 ug/dL Normal 250.0-450.0 [facility] Comment on above: Performed By: #### M G, URIC, RENAL #### [facility] [address] [place] [address] Dr. Hari Palmer MAGNESIUMon 07-29-2022 Magnesium [Mass/Vol] 2.0 mg/dL Normal 1.8-2.4 [facility] Comment on above: Performed By: #### M G, URIC, RENAL #### [facility] [address] [place] [address] Dr. Hari Palmer RENAL FUNCTION PANELon 07-29 Albumin [Mass/Vol] 3.6 g/dL Normal 3.4-5.0 [facility] Comment on above: Performed By: #### M G, URIC, RENAL #### [facility] [address] [place] [address] Dr. Hari Palmer Calcium [Mass/Vol] 8.7 mg/dL Normal 8.5-10.1 [facility] Comment on above: Performed By: #### M G, URIC, RENAL #### [facility] [address] [place] [address] Dr. Hari Palmer Chloride [Moles/Vol] 104 mmol/L Normal 98-107 [facility] Comment on above: Performed By: #### M G, URIC, RENAL #### [facility] [address] [place] [address] Dr. Hari Palmer CO2 [Moles/Vol] 21.8 mmol/L Normal 21.0-32.0 [facility] Comment on above: Performed By: #### M G, URIC, RENAL #### [facility] [address] [place] [address] Dr. Hari Palmer Creatinine [Mass/Vol] 3.83 mg/dL Critically high 0.55-1.02 [facility] Comment on above: Performed By: #### M G, URIC, RENAL #### [facility] [address] [place] [address] Dr. Hari Palmer EGFR-AF TAJIK 15 mL/min/1.73m2 Critically low >=60 [facility] Comment on above: Performed By: #### M G, URIC, RENAL #### [facility] [address] [place] [address] Dr. Hari Palmer EGFR-NON AF TAJIK 13 mL/min/1.73m2 Critically low >=60 [facility] Comment on above: Performed By: #### M G, URIC, RENAL #### [facility] [address] [place] [address] Dr. Hari Palmer Glucose [Mass/Vol] 108 mg/dL Critically high 74-106 [facility] Comment on above: Performed By: #### M G, URIC, RENAL #### [facility] [address] [place] [address] Dr. Hari Palmer Phosphate [Mass/Vol] 5.4 mg/dL Critically high 2.6-4.7 [facility] Comment on above: Performed By: #### M G, URIC, RENAL #### [facility] [address] [place] [address] Dr. Hari Palmer Potassium [Moles/Vol] 3.9 mmol/L Normal 3.5-5.1 [facility] Comment on above: Performed By: #### M G, URIC, RENAL #### [facility] [address] [place] [address] Dr. Hari Palmer Sodium [Moles/Vol] 137 mmol/L Normal 136-145 [facility] Comment on above: Performed By: #### M G, URIC, RENAL #### [facility] [address] [place] [address] Dr. Hari Palmer Urea nitrogen [Mass/Vol] 47.0 mg/dL Critically high 7.0-18.0 [facility] Comment on above: Performed By: #### M G, URIC, RENAL #### [facility] [address] [place] [address] Dr. Hari Palmer URIC ACID SERUMon 07-29-2022 Urate [Mass/Vol] 6.3 mg/dL Critically high 2.6-6.0 [facility] Comment on above: Performed By: #### M G, URIC, RENAL #### [facility] [address] [place], [place] [id number] Dr. Hari Palmer URINE T PROTEIN CREAT RATIOo n 07-29-2022 Protein (U) [Mass/Vol] 29.7 mg/dL Critically high <=12.0 [facility] Comment on above: Performed By: #### M G, URIC, RENAL #### [facility] [address] [address] [address] Hari Palmer UR PROT CREAT RAT 0.56 Normal [facility] Comment on above: Performed By: #### M G, URIC, RENAL #### [facility] [address] [address] [address] Hari Palmer URINE CREAT 53.35 mg/dL Normal 20.00-300.00 [facility] Comment on above: Performed By: #### M G, URIC, RENAL #### [facility] [address] [place] [address] Dr. Hari Palmer VITAMIN D 25 OHon 07-29-2022 VIT D 25-OH 38.8 ng/mL Normal [facility] Comment on above: Performed By: #### M G, URIC, RENAL #### [facility] [address] [address] [address] Hari Palmer VIT D RANGES SEE BELOW Normal [facility] Comment on above: Result Comment: <20 ng/mL Vit D deficient 20 - <30 ng/mL Vit D insufficient 30 - 100 ng/mL Vit D sufficient >100 ng/mL Potential Toxicity Performed By: #### M G, URIC, RENAL #### [facility] [address] [address] [address] Hari Palmer Albumin [Mass/volume] in Ser um or PlasmaOrdered By: Stanley Forman on 06-20-2022 Albumin [Mass/Vol] 3.9 g/dL 3.2-5.5 [facility] Basophils Auto (Bld) [#/Vol] Ordered By: Stanley Forman on 06-20-2022 Basophils (Bld) [#/Vol] 0.1 10*3/uL 0.0-0.2 [facility] Basophils/100 WBC Auto (Bld) Ordered By: Stanley Forman on 06-20-2022 Basophils/100 WBC (Bld) 0.7 % . [facility] Blood hemoglobin measurement (mass/volume)Ordered By: Stanley Forman on 06-20-2022 Hemoglobin (Bld) [Mass/Vol] 10.8 g/dL 11.8-15.4 [facility] Blood leukocytes automated c ount (number/volume)Ordered By: Stanley Forman on 06-20-2022 WBC (Bld) [#/Vol] 11.8 10*3/uL 4.5-11.0 [facility] C reactive protein [Mass/vol ume] in Serum or PlasmaOrdered By: Stanley Forman on 06-20-2022 CRP [Mass/Vol] 5.2 mg/dL 0.0-1.0 [facility] Creatinine and Glomerular fi ltration rate.predicted panel (S/P/Bld)Ordered By: Stanley Forman on 06-20-2022 Creatinine [Mass/Vol] 4.49 mg/dL 0.44-1.03 [facility] Eosinophils Auto (Bld) [#/Vo l]Ordered By: Stanley Forman on 06-20-2022 Eosinophils (Bld) [#/Vol] 0.4 10*3/uL 0.0-0.45 [facility] Eosinophils/100 WBC Auto (Bl d)Ordered By: Stanley Forman on 06-20-2022 Eosinophils/100 WBC (Bld) 3.2 % . [facility] Erythrocyte distribution wid th Auto (RBC) [Ratio]Ordered By: Stanley Forman on 06-20-2022 Erythrocyte distribution width (RBC) [Ratio] 14.0 % 11.9-15.3 [facility] Erythrocyte sedimentation ra te by Photometric methodOrdered By: Stalney Forman on 06-20-2022 ESR Photometric method (Bld) [Velocity] 67 mm/hr 0-19 [facility] Estimated glomerular filtrat ion rate (GFR) non- AmericanOrdered By: Stanley Forman on 06-20-2022 GFR/1.73 sq M.predicted among non-blacks MDRD (S/P/Bld) [Vol rate/Area] 11 mL/Min [facility] Globulin Calc (S) [Mass/Vol] Ordered By: Stanley Forman on 06-20-2022 Globulin (S) [Mass/Vol] 3.5 g/dL [facility] Hematocrit Auto (Bld) [Volum e fraction]Ordered By: Stanley Forman on 06-20-2022 Hematocrit (Bld) [Volume fraction] 33.1 % 34.0-46.4 [facility] Laboratory - Hematology and Cell countsOrdered By: Stanley Forman on 06-20-2022 Nucleated RBC/100 WBC (Bld) [Ratio] 0.0 % 0-0.5 [facility] Lymphocytes Auto (Bld) [#/Vo l]Ordered By: Stanley Forman on 06-20-2022 Lymphocytes (Bld) [#/Vol] 1.5 10*3/uL 1.00-4.8 [facility] Lymphocytes/100 WBC Auto (Bl d)Ordered By: Stanley Forman on 06-20-2022 Lymphocytes/100 WBC (Bld) 12.3 % . [facility] MCH Auto (RBC) [Entitic mass ]Ordered By: Stanley Forman on 06-20-2022 MCH (RBC) [Entitic mass] 31.1 pg 24.7-34.3 [facility] MCHC Auto (RBC) [Mass/Vol]Or dered By: Stanley Forman on 06-20-2022 MCHC (RBC) [Mass/Vol] 32.5 g/dL 32.0-35.0 [facility] MCV Auto (RBC) [Entitic vol] Ordered By: Stanley Forman on 06-20-2022 MCV (RBC) [Entitic vol] 95.6 fL 80-100 [facility] Monocytes Auto (Bld) [#/Vol] Ordered By: Stanley Forman on 06-20-2022 Monocytes (Bld) [#/Vol] 0.5 10*3/uL 0.0-0.8 [facility] Monocytes/100 WBC Auto (Bld) Ordered By: Stanley Forman on 06-20-2022 Monocytes/100 WBC (Bld) 4.1 % . [facility] Neutrophils Auto (Bld) [#/Vo l]Ordered By: Stanley Forman on 06-20-2022 Neutrophils (Bld) [#/Vol] 9.4 10*3/uL 1.8-7.7 [facility] Neutrophils/100 WBC Auto (Bl d)Ordered By: Stanley Forman on 06-20-2022 Neutrophils/100 WBC (Bld) 79.7 % . [facility] No Panel InformationOrdered By: Stanley Forman on 06-20-2022 Estimated GFR () 13 mL/Min [facility] Comment on above: GFR estimated refere nce range: According to KDOQI guidelines, <60 ml/min/1.73m2 is sufficient to diagnose a patient with chronic kidney disease. Pharmacy Creatinine Clearance (Chem 16.48 [facility] Platelet mean volume Auto (B ld) [Entitic vol]Ordered By: Stanley Forman on 06-20-2022 Platelet mean volume (Bld) [Entitic vol] 7.0 fL 6.3-10.7 [facility] Platelets Auto (Bld) [#/Vol] Ordered By: Stanley Forman on 06-20-2022 Platelets (Bld) [#/Vol] 287 10*3/uL 150-450 [facility] Protein [Mass/volume] in Ser um or PlasmaOrdered By: Stanley Forman on 06-20-2022 Protein [Mass/Vol] 7.4 g/dL 6.1-7.9 [facility] RBC Auto (Bld) [#/Vol]Ordere d By: Stanley Forman on 06-20-2022 RBC (Bld) [#/Vol] 3.46 10*6/uL 3.60-5.00 [facility] Serum or plasma alanine cesar otransferase measurement without P-5'-P (enzymatic activiOrdered By: Stanley Forman on 06-20-2022 ALT No additional P-5'-P [Catalytic activity/Vol] 11 U/L 10-60 [facility] Serum or plasma albumin/glob ulin mass ratioOrdered By: Stanley Forman on 06-20-2022 Albumin/Globulin [Mass ratio] 1.1 {ratio} [facility] Serum or plasma alkaline gina sphatase measurement (enzymatic activity/volume)Ordered By: Stanley Forman on 06-20-2022 ALP [Catalytic activity/Vol] 82 U/L 32-92 [facility] Serum or plasma anion gap de terminationOrdered By: Stanley Forman on 06-20-2022 Anion gap [Moles/Vol] 16.2 mmol/L 6.0-15.0 [facility] Serum or plasma aspartate am inotransferase measurement (enzymatic activity/volume)Ordered By: Stanley Forman on 06-20-2022 AST [Catalytic activity/Vol] 15 U/L 10-42 [facility] Serum or plasma calcium ge urement (mass/volume)Ordered By: Stanley Forman on 06-20-2022 Calcium [Mass/Vol] 9.3 mg/dL 8.2-10.2 [facility] Serum or plasma chloride lee surement (moles/volume)Ordered By: Stanley Forman on 06-20-2022 Chloride [Moles/Vol] 103 mmol/L 95-114 [facility] Serum or plasma glucose ge urement (mass/volume)Ordered By: Stanley Forman on 06-20-2022 Glucose [Mass/Vol] 75 mg/dL 70-100 [facility] Comment on above: ADA recommended refe rence rangeRandom Glucose Reference Range is dependent on time and content of last meal. Glucose of more than 200 mg/dL in a nonstressed, ambulatory subject supports the diagnosis of Diabetes Mellitus. Serum or plasma potassium me asurement (moles/volume)Ordered By: Stanley Forman on 06-20-2022 Potassium [Moles/Vol] 4.3 mmol/L 3.5-5.1 [facility] Serum or plasma sodium measu rement (moles/volume)Ordered By: Stanley Forman on 06-20-2022 Sodium [Moles/Vol] 135 mmol/L 136-146 [facility] Serum or plasma total biliru bin measurement (mass/volume)Ordered By: Stanley Forman on 06-20-2022 Bilirubin [Mass/Vol] 0.3 mg/dL 0.3-1.2 [facility] Serum or plasma total carbon dioxide measurement (moles/volume)Ordered By: Stanley Forman on 06-20-2022 CO2 [Moles/Vol] 20.1 mmol/L 22.0-30.0 [facility] Serum or plasma urea nitroge n measurement (mass/volume)Ordered By: Stanley Forman on 06-20-2022 Urea nitrogen [Mass/Vol] 42 mg/dL 06-28 [facility] COVID-19 Positive/NegativeOr dered By: Jesus Parham on 06-14-2022 SARS-CoV-2 (COVID-19) N gene AMBERLY+probe Ql (Resp) Negative Negative [facility] Comment on above: Testing for SARS-CoV -2 by RT-PCR This test was developed and its performance characteristics determined by [employer] (BD) and validated at the [facility]. This test has not been FDA [...] and its performance characteristics determined by [employer] (BD) and validated at the [facility]. This test has not been FDA [...] Antigen (CA) 125 10.8 U/mL Normal 0.0-38.1 [facility] Comment on above: Result Comment: [employer] Electrochemiluminescence Immunoassay (ECLIA) . Values obtained with different assay methods or kits cannot be used interchangeably. Results cannot be interpreted as absolute evidence of the presence or absence of malignant disease. Performed By: #### M G, URIC, RENAL #### [facility] [address] [address] [address] Hari Palmer CEAon 06-08-2022 CEA 0.9 ng/mL Normal 0.0-4.7 [facility] Comment on above: Result Comment: Nons mokers <3.9 Smokers <5.6 . [employer] Electrochemiluminescence Immunoassay (ECLIA) . Values obtained with different assay methods or kits cannot be used interchangeably. Results cannot be interpreted as absolute evidence of the presence or absence of malignant disease. Performed By: #### C EA. #### [facility] [address] [address] [address] Hari Palmer Basophils Auto (Bld) [#/Vol] Ordered By: Jesus Parham on 06-05-2022 Basophils (Bld) [#/Vol] 0.0 10*3/uL 0.0-0.2 [facility] Basophils/100 WBC Auto (Bld) Ordered By: Jesus Parham on 06-05-2022 Basophils/100 WBC (Bld) 0.3 % . [facility] Blood hemoglobin measurement (mass/volume)Ordered By: Jesus Parham on 06-05-2022 Hemoglobin (Bld) [Mass/Vol] 12.0 g/dL 11.8-15.4 [facility] Blood leukocytes automated c ount (number/volume)Ordered By: Jesus Parham on 06-05-2022 WBC (Bld) [#/Vol] 8.5 10*3/uL 4.5-11.0 [facility] Creatinine and Glomerular fi ltration rate.predicted panel (S/P/Bld)Ordered By: Jesus Parham on 06-05-2022 Creatinine [Mass/Vol] 3.52 mg/dL 0.44-1.03 [facility] Eosinophils Auto (Bld) [#/Vo l]Ordered By: Jesus Parham on 06-05-2022 Eosinophils (Bld) [#/Vol] 0.2 10*3/uL 0.0-0.45 [facility] Eosinophils/100 WBC Auto (Bl d)Ordered By: Jesus Parham on 06-05-2022 Eosinophils/100 WBC (Bld) 2.7 % . [facility] Erythrocyte distribution wid th Auto (RBC) [Ratio]Ordered By: Jesus Parham on 06-05-2022 Erythrocyte distribution width (RBC) [Ratio] 14.2 % 11.9-15.3 [facility] Estimated glomerular filtrat ion rate (GFR) non- AmericanOrdered By: Jesus Parham on 06-05-2022 GFR/1.73 sq M.predicted among non-blacks MDRD (S/P/Bld) [Vol rate/Area] 14 mL/Min [facility] Hematocrit Auto (Bld) [Volum e fraction]Ordered By: Jesus Parham on 06-05-2022 Hematocrit (Bld) [Volume fraction] 35.8 % 34.0-46.4 [facility] - Hematology and Cell countsOrdered By: Jesus Parham on 06-05-2022 Nucleated RBC/100 WBC (Bld) [Ratio] 0.1 % 0-0.5 [facility] Lymphocytes Auto (Bld) [#/Vo l]Ordered By: Jesus Parham on 06-05-2022 Lymphocytes (Bld) [#/Vol] 1.6 10*3/uL 1.00-4.8 [facility] Lymphocytes/100 WBC Auto (Bl d)Ordered By: Jesus Parham on 06-05-2022 Lymphocytes/100 WBC (Bld) 19.3 % . [facility] MCH Auto (RBC) [Entitic mass ]Ordered By: Jesus Parham on 06-05-2022 MCH (RBC) [Entitic mass] 31.5 pg 24.7-34.3 [facility] MCHC Auto (RBC) [Mass/Vol]Or dered By: Jesus Parham on 06-05-2022 MCHC (RBC) [Mass/Vol] 33.3 g/dL 32.0-35.0 [facility] MCV Auto (RBC) [Entitic vol] Ordered By: Jesus Parham on 06-05-2022 MCV (RBC) [Entitic vol] 94.4 fL 80-100 [facility] Monocytes Auto (Bld) [#/Vol] Ordered By: Jesus Parham on 06-05-2022 Monocytes (Bld) [#/Vol] 0.3 10*3/uL 0.0-0.8 [facility] Monocytes/100 WBC Auto (Bld) Ordered By: Jesus Parham on 06-05-2022 Monocytes/100 WBC (Bld) 3.9 % . [facility] Neutrophils Auto (Bld) [#/Vo l]Ordered By: Jesus Parham on 06-05-2022 Neutrophils (Bld) [#/Vol] 6.2 10*3/uL 1.8-7.7 [facility] Neutrophils/100 WBC Auto (Bl d)Ordered By: Jesus Parham on 06-05-2022 Neutrophils/100 WBC (Bld) 73.8 % . [facility] No Panel InformationOrdered By: Jesus Parham on 06-05-2022 Estimated GFR () 17 mL/Min [facility] Comment on above: GFR estimated refere nce range: According to KDOQI guidelines, <60 ml/min/1.73m2 is sufficient to diagnose a patient with chronic kidney disease. Pharmacy Creatinine Clearance (Chem N/A [facility] Platelet mean volume Auto (B ld) [Entitic vol]Ordered By: Jesus Parham on 06-05-2022 Platelet mean volume (Bld) [Entitic vol] 7.3 fL 6.3-10.7 [facility] Platelets Auto (Bld) [#/Vol] Ordered By: Jesus Parham on 06-05-2022 Platelets (Bld) [#/Vol] 312 10*3/uL 150-450 [facility] RBC Auto (Bld) [#/Vol]Ordere d By: Jesus Parham on 06-05-2022 RBC (Bld) [#/Vol] 3.80 10*6/uL 3.60-5.00 [facility] Serum or plasma anion gap de terminationOrdered By: Jesus Parham on 06-05-2022 Anion gap [Moles/Vol] 15.1 mmol/L 6.0-15.0 [facility] Serum or plasma calcium ge urement (mass/volume)Ordered By: Jesus Parham on 06-05-2022 Calcium [Mass/Vol] 9.5 mg/dL 8.2-10.2 [facility] Serum or plasma chloride lee surement (moles/volume)Ordered By: Jesus Parham on 06-05-2022 Chloride [Moles/Vol] 106 mmol/L 95-114 [facility] Serum or plasma glucose ge urement (mass/volume)Ordered By: Jesus Parham on 06-05-2022 Glucose [Mass/Vol] 91 mg/dL 70-100 [facility] Comment on above: ADA recommended [...] on 06-05-2022 Potassium [Moles/Vol] 4.4 mmol/L 3.5-5.1 [facility] Serum or plasma sodium measu rement (moles/volume)Ordered By: Jesus Parham on 06-05-2022 Sodium [Moles/Vol] 137 mmol/L 136-146 [facility] Serum or plasma total carbon dioxide measurement (moles/volume)Ordered By: Jesus Parham on 06-05-2022 CO2 [Moles/Vol] 20.3 mmol/L 22.0-30.0 [facility] Serum or plasma urea nitroge n measurement (mass/volume)Ordered By: Jesus Parham on 06-05-2022 Urea nitrogen [Mass/Vol] 38 mg/dL 06-28 [facility] PTH INTACTon 04-29-2022 PTH, Intact 191 pg/mL Critically high 15-65 [facility] Comment on above: Performed By: #### M JUDIE Snow RENAL #### [facility] [address] [address] [address] Hari Palmer VIT D 25-OH LABCORPon 2021 Vitamin D, 25-Hydroxy 33.6 ng/mL Normal 30.0-100.0 [facility] Comment on above: Result Comment: Ning min D deficiency has been defined by the [place] of [employer] and an Endocrine Society practice guideline as a level of serum 25-OH vitamin D less than 20 ng/mL (1,2). The Endocrine Society went on to further define vitamin D insufficiency as a level between 21 and 29 ng/mL (2). 1. IOM ([place] of [employer]). 2010. Dietary reference intakes for calcium and D. [place]: The National Academies Press. 2. Chantel MF, Landen [place], Eliseo STEPHENS, et al. Evaluation, treatment, and prevention of vitamin D deficiency: an Endocrine Society clinical practice guideline. JCEM. 2010; 96(7):1911-30. Performed By: #### M JUDIE Snow RENAL #### [facility] [address] [address] [address] Hari Palmer ABO AND RH TYPEon 04-27-2022 ABO and Rh group Nom (Bld) ABO Rh Typing O Rh Positive Normal [facility] Comment on above: Performed By: #### M JUDIE Snow RENAL #### [facility] [address] [address] [address] Hari Palmer FERRITINon 04-27-2022 Ferritin [Mass/Vol] 273.0 ng/mL Critically high 6.2-137.0 [facility] Comment on above: Performed By: #### JUDIE Traore RENAL #### [facility] [address] [address] [address] Hari Palmer HEMOGRAM AND PLATELon 2021 Hematocrit (Bld) [Volume fraction] 33.9 % Critically low 36.0-48.0 [facility] Comment on above: Performed By: #### M G, URIC, RENAL #### [facility] [address] [place] [address] Dr. Hari Palmer Hemoglobin (Bld) [Mass/Vol] 11.4 g/dL Critically low 12.0-16.0 [facility] Comment on above: Performed By: #### M G, URIC, RENAL #### [facility] Laboratory [address] [place] [address] Dr. Hari Palmer MCH (RBC) [Entitic mass] 31.7 pg Normal 26.7-34.0 [facility] Comment on above: Performed By: #### M G, URIC, RENAL #### [facility] [address] [place] [address] Dr. Hari Palmer MCHC (RBC) [Mass/Vol] 33.6 g/dL Normal 29.9-35.2 [facility] Comment on above: Performed By: #### M G, URIC, RENAL #### [facility] [address] [place] [address] Dr. Hari Palmer MCV (RBC) [Entitic vol] 94.2 fL Normal 81.0-99.0 [facility] Comment on above: Performed By: #### M G, URIC, RENAL #### [facility] [address] [place] [address] Dr. Hari Palmer PLT 333 103/ul Normal 150-450 [facility] Comment on above: Performed By: #### M G, URIC, RENAL #### [facility] [address] [place] [address] Dr. Hari Palmer RBC 3.60 106/ul Critically low 4.20-5.40 [facility] Comment on above: Performed By: #### M G, URIC, RENAL #### [facility] [address] [place] [address] Dr. Hari Palmer WBC 9.7 103/ul Normal 4.0-11.0 [facility] Comment on above: Performed By: #### M G, URIC, RENAL #### [facility] [address] [place] [address] Dr. Hari Palmer IRON AND TIBCon 04-27-2022 % SATURATION 20.1 % Normal [facility] Comment on above: Performed By: #### M G, URIC, RENAL #### [facility] [address] [place] [address] Dr. Hari Palmer Iron [Mass/Vol] 57.0 ug/dL Normal 50.0-170.0 [facility] Comment on above: Performed By: #### M G, URIC, RENAL #### [facility] [address] [place] [address] Dr. Hari Palmer TIBC DIRECT 283.0 ug/dL Normal 250.0-450.0 [facility] Comment on above: Performed By: #### M G, URIC, RENAL #### [facility] [address] [place] [address] Dr. Hari Palmer MAGNESIUMon 04-27-2022 Magnesium [Mass/Vol] 2.1 mg/dL Normal 1.8-2.4 [facility] Comment on above: Performed By: #### R ENAL, URIC, MG #### [facility] [address] [place] [address] Dr. Hari Palmer RENAL FUNCTION PANELon 04-27 Albumin [Mass/Vol] 3.6 g/dL Normal 3.4-5.0 [facility] Comment on above: Performed By: #### R ENAL, URIC, MG #### [facility] [address] [place] [address] Dr. aHri Palmer Calcium [Mass/Vol] 9.0 mg/dL Normal 8.5-10.1 [facility] Comment on above: Performed By: #### R ENAL, URIC, MG #### [facility] [address] [place] [address] Dr. Hari Palmer Chloride [Moles/Vol] 104 mmol/L Normal 98-107 [facility] Comment on above: Performed By: #### R ENAL, URIC, MG #### [facility] [address] [place] [address] Dr. Hari Palmer CO2 [Moles/Vol] 23.0 mmol/L Normal 21.0-32.0 [facility] Comment on above: Performed By: #### R ENAL, URIC, MG #### [facility] [address] [place] [address] Dr. Hari Palmer Creatinine [Mass/Vol] 3.38 mg/dL Critically high 0.55-1.02 [facility] Comment on above: Performed By: #### R ENAL, URIC, MG #### [facility] [address] [place] [address] Dr. Hrai Palmer EGFR-AF TAJIK 18 mL/min/1.73m2 Critically low >=60 [facility] Comment on above: Performed By: #### R ENAL, URIC, MG #### [facility] [address] [place] [address] Dr. Hari Palmer EGFR-NON AF TAJIK 15 mL/min/1.73m2 Critically low >=60 [facility] Comment on above: Performed By: #### R ENAL, URIC, MG #### [facility] [address] [place] [address] Dr. Hari Palmer Glucose [Mass/Vol] 113 mg/dL Critically high 74-106 [facility] Comment on above: Performed By: #### R ENAL, URIC, MG #### [facility] [address] [place] [address] Dr. Hari Palmer Phosphate [Mass/Vol] 4.4 mg/dL Normal 2.6-4.7 [facility] Comment on above: Performed By: #### R ENAL, URIC, MG #### [facility] [address] [place] [address] Dr. Hari Palmer Potassium [Moles/Vol] 4.0 mmol/L Normal 3.5-5.1 [facility] Comment on above: Performed By: #### R ENAL, URIC, MG #### [facility] [address] [place] [address] Dr. Hari Palmer Sodium [Moles/Vol] 137 mmol/L Normal 136-145 [facility] Comment on above: Performed By: #### R ENAL, URIC, MG #### [facility] [address] [place] [address] Dr. Hari Palmer Urea nitrogen [Mass/Vol] 44.0 mg/dL Critically high 7.0-18.0 [facility] Comment on above: Performed By: #### R ENAL, URIC, MG #### [facility] [address] [place] [address] Dr. Hari Palmer URIC ACID SERUMon 04-27-2022 Urate [Mass/Vol] 6.6 mg/dL Critically high 2.6-6.0 [facility] Comment on above: Performed By: #### R ENAL, URIC, MG #### [facility] [address] [place] [address] Dr. Hari Palmer URINE T PROTEIN CREAT RATIOo n 04-27-2022 Protein (U) [Mass/Vol] 31.4 mg/dL Critically high <=12.0 [facility] Comment on above: Performed By: #### M G, URIC, RENAL #### [facility] [address] [place] [address] Dr. Hari Palmer UR PROT CREAT RAT 0.55 Normal [facility] Comment on above: Performed By: #### M G, URIC, RENAL #### [facility] [address] [place] [address] Dr. Hari Palmer URINE CREAT 57.50 mg/dL Normal 20.00-300.00 [facility] Comment on above: Performed By: #### M G, URIC, RENAL #### [facility] [address] [place] [address] Dr. Hari Palmer ECHOCARDIO M/2D COMPLETEon 0 03-29-2022 ECHOCARDIO M/2D COMPLETE Patient: MANDEEP PURI Exam Date: 03/29/2022 : 1975 Gender:F Ordering : HAIDER FRENCH M.D. Admission #: [id number] Family : Order #: [id number] CLICK HERE TO VIEW EXAM ECHOCARDIOGRAM REPORT [...] Area(A4C): 17.00 cm2 Left Atrium Systolic Volume(A2C): 65814 mm3 Left Atrium Systolic Volume(A4C): 25782 mm3 Mitral Valve MV E to A Ratio: 0.80 Deceleration Camas: 3210 mm/s2 Mitral Valve A-Wave Peak Velocity: [...] M.D. on 04/01/2022 at 12:33 Normal [facility] COVID-19 SOFIAOrdered By: Mary Beth Jones on 03-28-2022 SARS-CoV+SARS-CoV-2 (COVID-19) Ag IA.rapid Ql (Resp) Negative Negative [facility] Comment on above: This is a duplicate Ada SARS Antigen (GLORIA) result to be used for statistical tracking purpose only. No Panel InformationOrdered By: Shabbir Jones on 03-28-2022 SARS Antigen (LFIA) [facility] BLOOD TYPE AND RHon 02-13-20 ABO INTERPRETATION O Normal [facility] Comment on above: Performed By: #### 3 1397, 06666, 85806, 67742, 34747 #### [facility] [address] [place] [address], [facility] RH INTERPRETATION Positive Normal [facility] Comment on above: Performed By: #### 3 1397, 10604, 08505, 54511, 09634 #### [facility] [address] [place] [address], [place] BNP (B-TYPE NATRIURETIC PEPT JOEL)on 02-12-2022 Natriuretic peptide B (Bld) [Mass/Vol] 10 pg/mL Normal 0-100 [facility] Comment on above: Result Comment: Give n the appropriate clinical setting a BNP result of >100 pg/mL indicates congestive heart failure. Performed By: #### 8 8683, 77113 #### [facility] [address] [place] [address], [facility] CBC W/DIFFon 02-12-2022 ABS IMM GRANS 0.2 10*3/uL Normal 0.0-0.2 [facility] Comment on above: Performed By: #### 3 1397, 46299, 75750, 42420, 88927 #### [facility] [address] [place] [address], [facility] ABS NEUTROPHILS 7.8 10*3/uL High 1.6-7.6 [facility] Comment on above: Performed By: #### 3 1397, 33843, 83279, 65393, 91916 #### [facility] [address] [place] [address], [facility] Basophils (Bld) [#/Vol] 0.1 10*3/uL Normal 0.0-0.2 [facility] Comment on above: Performed By: #### 3 1397, 97307, 58756, 24392, 13718 #### [facility] [address] [place] [address], [facility] Basophils/100 WBC (Bld) 0.6 % Normal 0.0-1.0 [facility] Comment on above: Performed By: #### 3 1397, 44124, 08518, 00455, 87283 #### [facility] [address] [place] [address], [facility] Eosinophils (Bld) [#/Vol] 0.3 10*3/uL Normal 0.0-0.5 [facility] Comment on above: Performed By: #### 3 1397, 21088, 63635, 81968, 00156 #### [facility] [address] [place] [address], [facility] Eosinophils/100 WBC (Bld) 2.5 % Normal 0.0-6.0 [facility] Comment on above: Performed By: #### 3 1397, 10162, 78410, 16686, 01825 #### [facility] [address] [place] [address], [facility] Erythrocyte distribution width (RBC) [Ratio] 13.6 % Normal 11.5-15.0 [facility] Comment on above: Performed By: #### 3 1397, 52028, 04203, 57554, 02840 #### [facility] [address] [place] [id number], [facility] Hematocrit (Bld) [Volume fraction] 34.5 % Low 36.0-45.0 [facility] Comment on above: Performed By: #### 3 1397, 28966, 95509, 10538, 61104 #### [facility] [address] [place] [address], [facility] Hemoglobin (Bld) [Mass/Vol] 11.3 g/dL Low 12.0-15.0 [facility] Comment on above: Performed By: #### 3 1397, 60663, 63602, 84265, 35365 #### [facility] [address] [place] [address], [facility] IMMATURE GRANS 1.4 % High 0.0-1.0 [facility] Comment on above: Performed By: #### 3 1397, 14648, 02029, 29771, 84639 #### [facility] [address] [place] [address], [facility] Lymphocytes (Bld) [#/Vol] 2.0 10*3/uL Normal 1.2-4.0 [facility] Comment on above: Performed By: #### 3 1397, 57575, 90927, 72515, 43209 #### [facility] [address] [place] [address], [facility] Lymphocytes/100 WBC (Bld) 18.6 % Low 20.0-45.0 [facility] Comment on above: Performed By: #### 3 1397, 98588, 20203, 22157, 28744 #### [facility] [address] [place] [address], [facility] MCH (RBC) [Entitic mass] 31.3 pg Normal 27.0-33.0 [facility] Comment on above: Performed By: #### 3 1397, 74408, 11496, 62626, 10221 #### [facility] [address] [place] [address], [facility] MCHC (RBC) [Mass/Vol] 32.8 g/dL Normal 32.0-35.0 [facility] Comment on above: Performed By: #### 3 1397, 77258, 01601, 65621, 35852 #### [facility] [address] [place] [address], [facility] MCV (RBC) [Entitic vol] 95.6 fL Normal 82.0-98.0 [facility] Comment on above: Performed By: #### 3 1397, 38075, 56468, 29086, 37285 #### [facility] [address] [place] [address], [facility] Monocytes (Bld) [#/Vol] 0.5 10*3/uL Normal 0.1-1.0 [facility] Comment on above: Performed By: #### 3 1397, 19392, 30505, 17191, 02809 #### [facility] [address] [place] [address], [facility] MONOS 4.9 % Low 5.0-12.0 [facility] Comment on above: Performed By: #### 3 1397, 43845, 25214, 10643, 65506 #### [facility] [address] [place] [address], [facility] Neutrophils/100 WBC (Bld) 72.0 % Normal 40.0-72.0 [facility] Comment on above: Performed By: #### 3 1397, 96439, 52963, 79455, 21930 #### [facility] [address] Nucleated RBC/100 WBC (Bld) [Ratio] 0 % Normal 0-0 [facility] Comment on above: Performed By: #### 3 1397, 13780, 73789, 16185, 11975 #### [facility] [address] [place] [address], [facility] PLAT CNT 315 10*3/uL Normal 150-400 [facility] Comment on above: Performed By: #### 3 1397, 48889, 91531, 90086, 55249 #### [facility] [address] [place] [address], [facility] RBC (Bld) [#/Vol] 3.61 10*6/uL Low 3.80-5.00 [facility] Comment on above: Performed By: #### 3 1397, 89252, 58116, 82163, 28456 #### [facility] [address] [place] [address], [facility] WBC (Bld) [#/Vol] 10.78 10*3/uL High 4.00-10.60 [facility] Comment on above: Performed By: #### 3 1397, 17052, 06792, 66064, 74428 #### [facility] [address] CHEST AND LATERALon 02-13-20 CHEST AND LATERAL [facility] Department of Radiology [address] [place] [address] [id number] Patient Name: MANDEEP PURI : 1975 Sex: [...] pathology. Electronically signed: Royal Dominguez. Transcribed by: [email or web address], User Resident: Electronically Signed by: ROYAL DOMINGUEZ @ 02/13/2022 11:48 AM Normal [facility] CMV IGG BLOODon 02-12-2022 CMV IGG 3.13 Normal [facility] Comment on above: Result Comment: NORM AL RANGES: < OR = 0.9O NEGATIVE ; NO DETECTABLE IgG ANTIBODY TO CMV 0.91 - 1.09 EQUIVOCAL; REPEAT TESTING SUGGESTED > OR = 1.10 POSITIVE ; INDICATES PRESENCE OF DETECTABLE IgG ANTIBODY TO CMV Performed By: #### 3 2997, 97077, 14895, 62907, 40947 #### [facility] [address] [place] [address], [facility] COMP METABOLIC PANELon 02-12 Albumin [Mass/Vol] 4.5 g/dL Normal 3.5-5.7 [facility] Comment on above: Performed By: #### 2 2505, 22387, 72903 #### [facility] [address] [place] [address], [place] ALKALINE PHOSPH 89 IU/L Normal 34-104 [facility] Comment on above: Performed By: #### 2 2505, 85486, 45009 #### [facility] [address] [place] [address], [place] ALT [Catalytic activity/Vol] 12 U/L Normal 7-52 [facility] Comment on above: Performed By: #### 2 2505, 18243, 52551 #### [facility] [address] [place] [address], [place] AST [Catalytic activity/Vol] 13 U/L Normal 13-39 [facility] Comment on above: Performed By: #### 2 2505, 05386, 47775 #### [facility] [address] [place] [address], [place] Bilirubin [Mass/Vol] 0.3 mg/dL Normal 0.3-1.0 [facility] Comment on above: Performed By: #### 2 2505, 76512, 92563 #### [facility] [address] [place] [address], [place] Calcium [Mass/Vol] 9.5 mg/dL Normal 8.6-10.3 [facility] Comment on above: Performed By: #### 2 2505, 46051, 54171 #### [facility] [address] [place] [address], [place] Chloride [Moles/Vol] 103 mmol/L Normal 98-107 [facility] Comment on above: Performed By: #### 2 2505, 10398, 45012 #### [facility] [address] [place] [address], [place] CO2 [Moles/Vol] 22 mmol/L Normal 21-31 [facility] Comment on above: Performed By: #### 2 2505, 33929, 72072 #### [facility] [address] [place] [address], [place] Creatinine [Mass/Vol] 3.51 mg/dL High 0.60-1.20 [facility] Comment on above: Performed By: #### 2 2505, 47302, 26268 #### [facility] [address] [place] [address], [place] eGFR- 17 ml/min/1.73sq m Abnormal >60 [facility] Comment on above: Performed By: #### 2 2505, , 78409 #### [facility] [address] [place] [address], [place] eGFR- non- 14 ml/min/1.73sq m Abnormal >60 [facility] Comment on above: Performed By: #### 2 2505, 31065, 58927 #### [facility] [address] [place] [address], [place] Glucose [Mass/Vol] 100 mg/dL Normal 70-100 [facility] Comment on above: Performed By: #### 2 2505, 29589, 88072 #### [facility] [address] [place] [address], [place] Potassium [Moles/Vol] 3.9 mmol/L Normal 3.5-5.1 [facility] Comment on above: Performed By: #### 2 2505, 59426, 42732 #### [facility] [address] [place] [address], [place] Protein [Mass/Vol] 8.0 g/dL Normal 6.0-8.3 [facility] Comment on above: Performed By: #### 2 2505, 12223, 79241 #### [facility] [address] [place] [address], [place] Sodium [Moles/Vol] 136 mmol/L Normal 136-145 [facility] Comment on above: Performed By: #### 2 2505, 67242, 55699 #### [facility] [address] [place] [address], [facility] Urea nitrogen [Mass/Vol] 41 mg/dL High 7-25 [facility] Comment on above: Performed By: #### 2 2505, 93471, 48632 #### [facility] [address] [place] [address], [facility] CREATININE URINE RANDOMon Creatinine (U) [Mass/Vol] 63.0 mg/dL Normal [facility] Comment on above: Result Comment: Ther e are no established reference values for random urine specimens Performed By: #### 3 1397, 39235, 50012, 40003, 51692 #### [facility] [address] RENAL RECIPIENT ABDOMEN A ND PEVLIS WO CONTRASTon 02-12-2022 CT RENAL RECIPIENT ABDOMEN AND PEVLIS WO CONTRAST [facility] Department of Radiology [address] [place] [phone] Patient Name: MANDEEP PURI : 1975 Sex: F Age: Race: White Pt. Location: 20 Patient Status: O Ordered Date: 02/12/2022 1:55:00 PM Completed Date: 02/12/2022 02:04 PM Requesting Provider: HAIDER FRENCH Attending Provider: HAIDER FRENCH Report Copy To: Signs & Symptoms: Z01.818 Encounter for other preprocedural examination I10 History: Beulah Comments: , Pre-kidney transplant work-up. Please evaluate [...] achievable. Electronically signed: NAN SARAVIA. Transcribed by: [email or web address], User Resident: Electronically Signed by: NAN SARAVIA @ 02/12/2022 02:59 PM Normal [facility] Comment on above: Order Comment: , Pre [...] Bilirubin.direct [Mass/Vol] 0.0 mg/dL Normal 0.0-0.2 [facility] Comment on above: Performed By: #### 2 9415, 92588, 86625 #### [facility] [address] [place] [address], [facility] BRETT LAGUERRE VIRUS ABon 05-1 EB VCA IGG 2.35 Normal [facility] Comment on above: Order Comment: CONSI STENT WITH PAST EBV INFECTION Result Comment: NORM AL RANGES: < OR = 0.9O NEGATIVE ; NO DETECTABLE IgG ANTIBODY TO EBV-VCA 0.91 - 1.09 EQUIVOCAL; REPEAT TESTING SUGGESTED > OR = 1.10 POSITIVE ; INDICATES PRESENCE OF DETECTABLE IgG ANTIBODY TO EBV Performed By: #### 3 1397, 09032, 06622, 83612, 58721 #### [facility] [address] [place] [address], [facility] EB VCA IGM 0.00 Normal [facility] Comment on above: Order Comment: CONSI STENT WITH PAST EBV INFECTION Result Comment: NORM AL RANGES: < OR = 0.9O NEGATIVE ; NO SIGNIFICANT LEVEL OF DETECTABLE EBV-VCA IgM AB 0.91 - 1.09 EQUIVOCAL; REPEAT TESTING SUGGESTED > OR = 1.10 POSITIVE ; SIGNIFICANT LEVEL OF DETECTABLE EBV-VCA IgM AB Performed By: #### 3 1397, 21711, 78115, 78745, 40339 #### [facility] [address] [facility] [address] HEMOGLOBIN A1Con 02-12-2022 Glucose [Moles/Vol] 120 mmol/L Normal [facility] Comment on above: Performed By: #### 8 5123, 00118 #### [facility] [address] [facility]. [address] HbA1c (Bld) [Mass fraction] 5.8 % Normal 4.0-6.0 [facility] Comment on above: Performed By: #### 8 5123, 32290 #### [facility] [address] [facility] [address] HEPATITIS A ANTIBODY IGMon 0 02-12-2022 HEP A AB IGM Non-Reactive Normal NONREACTIVE [facility] Comment on above: Performed By: #### 3 1397, 54263, 25574, 71706, 52805 #### [facility] [address] [facility] [address] HEPATITIS B CORE ANTIBODYon 02-12-2022 HEP B CORE AB Non-Reactive Normal NONREACTIVE [facility] Comment on above: Performed By: #### 3 1397, 53200, 56831, 91990, 81910 #### [facility] [address] [place] [address], [facility] HEPATITIS B SURFACE ANTIBODY QUANTon 02-12-2022 HEP B SURF AB 1.14 mIU/ml Normal [facility] Comment on above: Result Comment: INTE RPRETATION: NONREACTIVE<8.00 mIU/mL INDETERMINATE8.00 - 12.00 mIU/mL REACTIVE>12 mIU/mL Performed By: #### 3 1397, 14750, 87970, 69468, 84318 #### [facility] [address] [place] [address], [facility] HEPATITIS B SURFACE ANTIGEN QUALon 02-12-2022 HEP B SURF AG QUAL Non-Reactive Normal NONREACTIVE [facility] Comment on above: Performed By: #### 3 1397, 47244, 30756, 51769, 80386 #### [facility] [address] [place] [address], [facility] HEPATITIS C ANTIBODYon 02-12 ANTI-HCV Non-Reactive Normal NONREACTIVE [facility] Comment on above: Performed By: #### 3 1397, 34728, 55851, 45269, 72468 #### [facility] [address] [place] [address], [facility] HIV1 AND 2 COMBO 4Gon 2021 HIV COMBO Negative Normal NEGATIVE [facility] Comment on above: Performed By: #### 3 1397, 89505, 98943, 45186, 22902 #### [facility] [address] [facility] [address] HLA ABC CLASS I TYPINGon A*-1 EQUIVALENT 1 Normal [facility] Comment on above: Order Comment: Some of [...] to frequency. Performed By: #### 3 1397, 86382, 30286, 97794, 81537 #### [facility] [address] [place] [address], [facility] A*-2 EQUIVALENT 2 Normal [facility] Comment on above: Order Comment: Some of [...] to frequency. Performed By: #### 3 1397, 71010, 64099, 25871, 71672 #### [facility] [address] [place] [address], [place] B*-1 EQUIVALENT 35 Normal [facility] Comment on above: Order Comment: Some of [...] to frequency. Performed By: #### 3 1397, 01421, 21144, 23431, 53786 #### [facility] [address] [place] [address], [place] B*-2 EQUIVALENT 37 Normal [facility] Comment on above: Order Comment: Some of [...] to frequency. Performed By: #### 3 1397, 03166, 46998, 23324, 04913 #### [facility] [address] [place] [address], [place] Bw*-1 EQUIVALENT 4 Normal [facility] Comment on above: Order Comment: Some of [...] to frequency. Performed By: #### 3 1397, 99272, 44493, 56978, 20337 #### [facility] [address] [place] [address], [facility] Bw*-2 EQUIVALENT 6 Normal [facility] Comment on above: Order Comment: Some of [...] to frequency. Performed By: #### 3 1397, 27717, 08265, 09223, 05970 #### [facility] [address] [place] [address], [facility] C*-1 EQUIVALENT 4 Normal [facility] Comment on above: Order Comment: Some of [...] to frequency. Performed By: #### 3 1397, 61571, 11679, 19912, 21887 #### [facility] [address] [place] [address], [place] C*-2 EQUIVALENT 6 Normal [facility] Comment on above: Order Comment: Some of [...] to frequency. Performed By: #### 3 1397, 73554, 19818, 65977, 17818 #### [facility] [address] METHOD Class I Typing by PCR-SSOP [employer] Normal [facility] Comment on above: Order Comment: Some of [...] to frequency. Performed By: #### 3 1397, 02181, 50299, 11014, 34305 #### [facility] [address] SIGNED BY Normal [facility] Comment on above: Order Comment: Some of [...] to frequency. Result Comment: Nelson Noriega, MS,CHT(DONA),MT(ASCP) [employer], Transplant Immunology Performed By: #### 3 1397, 55770, 49105, 32947, 04828 #### [facility] [address] HLA DR CLASS II TYPINGon DPB1*-1 EQUIVALENT 04:01 Normal [facility] Comment on above: Order Comment: Some of [...] to frequency. Performed By: #### 3 1397, 25382, 14165, 29770, 22346 #### [facility] [address] [place] [address], [place] DPB1*-2 EQUIVALENT 04:02 Normal [facility] Comment on above: Order Comment: Some of [...] to frequency. Performed By: #### 3 1397, 59568, 24492, 37267, 57269 #### [facility] [address] [place] [address], [place] DQA1*-1 EQUIVALENT 01 Normal [facility] Comment on above: Order Comment: Some of [...] to frequency. Performed By: #### 3 1397, 03045, 83050, 78134, 25423 #### [facility] [address] [place] [address], [place] DQA1*-2 EQUIVALENT 05 Normal [facility] Comment on above: Order Comment: Some of [...] to frequency. Performed By: #### 3 1397, 43836, 87749, 38376, 70405 #### [facility] [address] [place] [address], [place] DQB1*-1 EQUIVALENT 7 Normal [facility] Comment on above: Order Comment: Some of [...] to frequency. Performed By: #### 3 1397, 33167, 07256, 52285, 36351 #### [facility] [address] [place] [address], [place] DQB1*-2 EQUIVALENT 5 Normal [facility] Comment on above: Order Comment: Some of [...] to frequency. Performed By: #### 3 1397, 22656, 84065, 55091, 16956 #### [facility] [address] [place] [address], [place] DRB1*-1 EQUIVALENT 10 Normal [facility] Comment on above: Order Comment: Some of [...] to frequency. Performed By: #### 3 1397, 35224, 41102, 94901, 27393 #### [facility] [address] [place] [address], [facility] DRB1*-2 EQUIVALENT 11 Normal [facility] Comment on above: Order Comment: Some of [...] to frequency. Performed By: #### 3 1397, 97640, 18942, 03270, 31214 #### [facility] [address] [place] [address], [facility] DRB3*-1 EQUIVALENT 52 Normal [facility] Comment on above: Order Comment: Some of [...] to frequency. Performed By: #### 3 1397, 21155, 17180, 53736, 91326 #### [facility] [address] [place] [address], [facility] METHOD Class II Typing by PCR-SSOP Luminex Normal [facility] Comment on above: Order Comment: Some of [...] to frequency. Performed By: #### 3 1397, 79831, 57843, 34493, 27466 #### [facility] [address] [place] [address], [facility] LIPID PROFILEon 02-12-2022 Cholesterol [Mass/Vol] 221 mg/dL High 120-200 Th e [facility] Comment on above: Result Comment: CHOL ESTEROL REFERENCE RANGE: 20 YEARS AND OLDER CARDIOVASCULAR RISK Less than 200 mg/dl Low Risk 200 to 239 mg/dl Borderline Risk 240 mg/dl and greater High Risk Performed By: #### 3 1397, 68525, 70226, 40103, 84968 #### [facility] [address] [place] [address], [place] Cholesterol in HDL [Mass/Vol] 40 mg/dL Normal 23-92 [facility] Comment on above: Result Comment: Slig ht variation in normal range could be due to gender and/or age. HDL CHOLESTEROL REFERENCE RANGE: 20 years and older Cardiovascular Risk > or =60 mg/dL Desirable 40 TO 59 mg/dL Low Risk <40 mg/dL High Risk Performed By: #### 3 1397, 34846, 46247, 17238, 57809 #### [facility] [address] [place] [address], [place] Cholesterol in LDL [Mass/Vol] 101 mg/dL Normal 0-130 [facility] Comment on above: Result Comment: LDL IS A CALCULATION LDL IS ONLY VALID IF THE TRIG IS LESS THAN 400. Performed By: #### 3 1397, 07832, 10854, 48523, 95857 #### [facility] [address] [place] [address], [place] Cholesterol.total/Chol esterol in HDL [Mass ratio] 5.5 {ratio} High .0-4.5 [facility] Comment on above: Performed By: #### 3 1397, 12419, 71466, 95576, 50603 #### [facility] [address] [place] [address], [facility] NON-HDL CHOLESTEROL 181 mg/dL Normal [facility] Comment on above: Performed By: #### 3 1397, 46469, 32644, 72038, 87316 #### [facility] [address] [place] [address], [facility] Triglyceride [Mass/Vol] 402 mg/dL High 40-149 [facility] Comment on above: Result Comment: TRIG LYCERIDE REFERENCE RANGE: 20 YEARS AND OLDER CARDIOVASCULAR RISK LESS THAN 150 mg/dl LOW RISK 150 TO 199 mg/dl BORDERLINE RISK 200 mg/dl AND GREATER HIGH RISK Performed By: #### 3 1397, 40605, 04835, 36682, 41520 #### [facility] [address] [place] [address], [facility] VLDL CHOL 80 mg/dL High 0-40 [facility] Comment on above: Performed By: #### 3 1397, 00087, 17544, 61198, 45813 #### [facility] [address] [facility] [place] [address], [facility] MUMPS IGG BLDon 02-12-2022 MUMPS IGG 5.46 Normal [facility] Comment on above: Result Comment: NORM AL RANGES: < OR = 0.9O NEGATIVE ; NO DETECTABLE IgG ANTIBODY TO MUMPS 0.91 - 1.09 EQUIVOCAL; REPEAT TESTING SUGGESTED > OR = 1.10 POSITIVE ; INDICATES PRESENCE OF DETECTABLE IgG ANTIBODY TO MUMPS Performed By: #### 3 1397, 62372, 18047, 42614, 10177 #### [facility] [address] [place] [address], [facility] RUBELLAon 02-12-2022 RUBELLA 4.79 Normal [facility] Comment on above: Result Comment: NORM AL RANGES: < OR = 0.9O NEGATIVE ; NO DETECTABLE IgG ANTIBODY TO RUBELLA 0.91 - 1.09 EQUIVOCAL; REPEAT TESTING SUGGESTED > OR = 1.10 POSITIVE ; INDICATES PRESENCE OF DETECTABLE IgG ANTIBODY TO RUBELLA VIRUS Performed By: #### 3 1397, 39889, 56769, 73930, 34416 #### [facility] [address] [facility] [address] RUBEOLA MEASLES IGGon 2021 RUBEO IGG 6.43 Normal [facility] Comment on above: Result Comment: NORM AL RANGES: < OR = 0.9O NEGATIVE ; NO DETECTABLE IgG ANTIBODY TO RUBEOLA 0.91 - 1.09 EQUIVOCAL; REPEAT TESTING SUGGESTED > OR = 1.10 POSITIVE ; INDICATES PRESENCE OF DETECTABLE IgG ANTIBODY TO RUBEOLA Performed By: #### 3 1397, 15331, 10750, 86476, 89847 #### [facility] [address] SINGLE ANTIGEN CLASS 1on METHOD Class I Single Antigen Normal Th e [facility] Comment on above: Order Comment: Some of [...] to frequency. Performed By: #### 3 1397, 26694, 57410, 78968, 98100 #### [facility] [address] SINGLE ANTIGEN CLASS 2on COMMENTS Normal [facility] Comment on above: Order Comment: Some of [...] watch list. Performed By: #### 3 1397, 84629, 92855, 26874, 74441 #### [facility] [address] [place] [address], [facility] Result Comment: Clas s I Antigen Microbeads Potential specificites added to the watch list. CPRA 0 Normal [facility] Comment on above: Order Comment: Some of [...] to frequency. Performed By: #### 3 1397, 42071, 29922, 21440, 55435 #### [facility] [address] [place] [address], [facility] METHOD Class II Single Antigen Normal T he [facility] Comment on above: Order Comment: Some of [...] to frequency. Performed By: #### 3 1397, 55203, 33185, 99406, 53023 #### [facility] [address] [facility]. [place] [id number], [facility] T PROT UR Yesy 02-12-2022 U TOTAL PROTEIN 44.0 mg/dL Normal [facility] Comment on above: Result Comment: Ther e are no established reference values for random urine specimens Performed By: #### 3 1397, 21539, 56052, 13407, 91567 #### [facility] [address] [place] [address], [facility] TB QUANTIFERON PLUSon 2021 MITOGEN MINUS NIL >10.00 Normal [facility] Comment on above: Performed By: #### 3 1592 #### [facility] [address] [place] [address], [facility] NIL 0.03 IU/mL Normal [facility] Comment on above: Performed By: #### 3 1592 #### [facility] [address] [place] [address], [facility] TB QUANTIFERON Negative Normal NEGATIVE [facility] Comment on above: Result Comment: Jadiel tiferon TB Gold Interpretation (IU/mL): NEGATIVE: M. tuberculosis infection not likely. Nil: <=8.0 TB1 Antigen minus Nil (QI9MY-PNC): <0.35 OR >=0.35; and <25% of Nil value. TB2 Antigen minus Nil (VF2OW-EVL): <0.35 OR >=0.35; and <25% of Nil [...] (https://www.cdc.gov/tb/publications/guidlines/default.htm Performed By: #### 3 1592 #### [facility] [address] [place] [address], [facility] TB1 AG 0.05 IU/mL Normal [facility] Comment on above: Performed By: #### 3 1592 #### [facility] [address] [place] [address], [facility] TB1 AG MINUS NIL 0.02 IU/mL Normal [facility] Comment on above: Performed By: #### 3 1592 #### [facility] [address] [place] [address], [facility] TB2 AG 0.05 IU/mL Normal [facility] Comment on above: Performed By: #### 3 1592 #### [facility] [address] [place] [address], [place] TB2 AG MINUS NIL 0.02 IU/mL Normal [facility] Comment on above: Performed By: #### 3 1592 #### [facility] [address] [place] [address], [place] UA,MICROSCOPIC REQUIREDon Appearance (U) SL CLOUDY Abnormal CLEAR [facility] Comment on above: Performed By: #### 3 1397, 65508, 49722, 92759, 25786 #### [facility] [address] [place] [address], [facility] Bilirubin Ql (U) Negative Normal NEGATIVE [facility] Comment on above: Performed By: #### 3 1397, 73190, 29208, 57179, 10690 #### [facility] [address] [place] [address], [facility] Color (U) STRAW Abnormal YELLOW [facility] Comment on above: Performed By: #### 3 1397, 99340, 19130, 11276, 38945 #### [facility] [address] [place] [address], [facility] EPIS MANY Abnormal FEW,OCC,NONE SEEN [facility] Comment on above: Performed By: #### 3 1397, 41403, 61627, 54369, 37556 #### [facility] [address] [place] [address], [facility] Glucose Ql (U) 50 mg/dL Abnormal NEGATIVE [facility] Comment on above: Performed By: #### 3 1397, 25058, 73098, 88476, 23452 #### [facility] [address] [facility] [place] [id number], [facility] Hemoglobin Ql (U) Negative Normal NEGATIVE [facility] Comment on above: Performed By: #### 3 1397, 83315, 43028, 74203, 60251 #### [facility] [address] [place] [address], [facility] KETONE Negative Normal NEGATIVE [facility] Comment on above: Performed By: #### 3 1397, 28271, 92719, 83529, 23317 #### [facility] [address] [facility] [place] [address], [facility] LEUK MARYAN MODERATE Abnormal NEGATIVE [facility] Comment on above: Performed By: #### 3 1397, 77634, 28925, 40344, 57067 #### [facility] [address] [facility] [place] [address], [facility] Nitrite Ql (U) Negative Normal NEGATIVE [facility] Comment on above: Performed By: #### 3 1397, 96752, 27124, 43856, 96408 #### [facility] [address] [facility] [place] [address], [facility] pH (U) 7.0 [pH] Normal 5.0-8.0 [facility] Comment on above: Performed By: #### 3 1397, 06008, 94920, 38778, 06541 #### [facility] [address] [facility] [place] [address], [facility] Protein Ql (U) 30 mg/dL Abnormal NEGATIVE [facility] Comment on above: Performed By: #### 3 1397, 95270, 53675, 37135, 29028 #### [facility] [address] [place] [address], [facility] RBC NONE SEEN Normal NONE SEEN [facility] Comment on above: Performed By: #### 3 1397, 47385, 17043, 46195, 99462 #### [facility] [address] [place] [address], [facility] SPEC GRAV 1.009 Low 1.015-1.020 [facility] Comment on above: Performed By: #### 3 1397, 25184, 81712, 19167, 59283 #### [facility] [address] [facility] WBC UA 11-20 Abnormal NONE SEEN [facility] Comment on above: Performed By: #### 3 1397, 12090, 99059, 26991, 13668 #### [facility] [address] [facility] VARICELLA ZOSTER IGGon 02-12 VARICELLA IGG 3.29 Normal [facility] Comment on above: Result Comment: NORM AL RANGES: < OR = 0.9O NEGATIVE ; NO DETECTABLE IgG ANTIBODY TO VARICELLA-ZOSTER VIRUS 0.91 - 1.09 EQUIVOCAL; REPEAT TESTING SUGGESTED > OR = 1.10 POSITIVE ; INDICATES PRESENCE OF DETECTABLE IgG ANTIBODY TO VARICELLA-ZOSTER VIRUS Performed By: #### 3 1397, 75636, 63224, 73062, 73579 #### [facility] [address] [facility] PTH INTACTon 12-04-2021 PTH, Intact 165 pg/mL Critically high 15-65 [facility] Comment on above: Performed By: #### M G, URIC, RENAL #### [facility] [address] [place] [address] Dr. Hari Palmer FERRITINon 12-03-2021 Ferritin [Mass/Vol] 256.0 ng/mL Critically high 6.2-137.0 [facility] Comment on above: Performed By: #### M G, URIC, RENAL #### [facility] [address] [place] [address] [address] Hari Palmer HEMOGRAM AND PLATELon 2021 Hematocrit (Bld) [Volume fraction] 33.7 % Critically low 36.0-48.0 [facility] Comment on above: Performed By: #### M G, URIC, RENAL #### [facility] [address] [place] [address] [address] Hari Palmer Hemoglobin (Bld) [Mass/Vol] 10.9 g/dL Critically low 12.0-16.0 [facility] Comment on above: Performed By: #### M G, URIC, RENAL #### [facility] [address] [place] [address] Dr. Hari Palmer MCH (RBC) [Entitic mass] 31.4 pg Normal 26.7-34.0 [facility] Comment on above: Performed By: #### M G, URIC, RENAL #### [facility] [address] [place] [address] Dr. Hari Palmer MCHC (RBC) [Mass/Vol] 32.3 g/dL Normal 29.9-35.2 [facility] Comment on above: Performed By: #### M Edy URIC, RENAL #### [facility] [address] [place] [address] Dr. Hari Palmer MCV (RBC) [Entitic vol] 97.1 fL Normal 81.0-99.0 [facility] Comment on above: Performed By: #### M G, URIC, RENAL #### [facility] [address] [place] [address] Dr. Hari Palmer PLT 314 103/ul Normal 150-450 [facility] Comment on above: Performed By: #### M Edy, URIC, RENAL #### [facility] [address] [place] [address] Dr. Hari Palmer RBC 3.47 106/ul Critically low 4.20-5.40 [facility] Comment on above: Performed By: #### M G, URIC, RENAL #### [facility] [address] [place] [address] Dr. Hari Palmer WBC 9.4 103/ul Normal 4.0-11.0 [facility] Comment on above: Performed By: #### M G, URIC, RENAL #### [facility] [address] [place] [address] Dr. Hari Palmer IRON AND TIBCon 12-03-2021 % SATURATION 19.0 % Normal [facility] Comment on above: Performed By: #### M G, URIC, RENAL #### [facility] [address] [place] [address] Dr. Hari Palmer Iron [Mass/Vol] 52.0 ug/dL Normal 37.0-170.0 [facility] Comment on above: Performed By: #### M G, URIC, RENAL #### [facility] [address] [place] [address] Dr. Hari Palmer TIBC DIRECT 273.0 ug/dL Normal 261.0-497.0 [facility] Comment on above: Performed By: #### M G, URIC, RENAL #### [facility] [address] [place] [address] Dr. Hari Palmer MAGNESIUMon 12-03-2021 Magnesium [Mass/Vol] 2.1 mg/dL Normal 1.6-2.3 [facility] Comment on above: Performed By: #### M G, URIC, RENAL #### [facility] [address] [place] [address] Dr. Hari Palmer RENAL FUNCTION PANELon 12-03 Albumin [Mass/Vol] 3.6 g/dL Normal 3.5-5.0 [facility] Comment on above: Performed By: #### M G, URIC, RENAL #### [facility] [address] [place] [address] Dr. Hari Palmer Calcium [Mass/Vol] 8.4 mg/dL Normal 8.4-10.2 [facility] Comment on above: Performed By: #### M G, URIC, RENAL #### [facility] [address] [place] [address] Dr. Hari Palmer Chloride [Moles/Vol] 101 mmol/L Normal 98-107 [facility] Comment on above: Performed By: #### M G, URIC, RENAL #### [facility] [address] [place] [address] Dr. Hari Palmer CO2 [Moles/Vol] 24.3 mmol/L Normal 22.0-30.0 [facility] Comment on above: Performed By: #### M G, URIC, RENAL #### [facility] [address] [place] [address] Dr. Hari Palmer Creatinine [Mass/Vol] 3.32 mg/dL Critically high 0.52-1.04 [facility] Comment on above: Performed By: #### M G, URIC, RENAL #### [facility] [address] [place] [address] [address] Hari Palmer EGFR-AF TAJIK 18 mL/min/1.73m2 Critically low >=60 [facility] Comment on above: Performed By: #### M Edy, URIC, RENAL #### [facility] [address] [place] [address] [address] Hari Palmer EGFR-NON AF TAJIK 15 mL/min/1.73m2 Critically low >=60 [facility] Comment on above: Performed By: #### M Edy, URIC, RENAL #### [facility] [address] [place] [address] Dr. Hari Palmer Glucose [Mass/Vol] 119 mg/dL Critically high 74-106 T [facility] Comment on above: Performed By: #### M Edy, URIC, RENAL #### [facility] [address] [place] [address] Dr. Hari Palmer Phosphate [Mass/Vol] 4.7 mg/dL Critically high 2.5-4.5 [facility] Comment on above: Performed By: #### M Edy, URIC, RENAL #### [facility] [address] [place] [address] Dr. Hari Palmer Potassium [Moles/Vol] 4.0 mmol/L Normal 3.4-5.0 [facility] Comment on above: Performed By: #### M G, URIC, RENAL #### [facility] [address] [place] [address] [address] Hari Palmer Sodium [Moles/Vol] 135 mmol/L Critically low 137-145 Th [facility] Comment on above: Performed By: #### M Edy, URIC, RENAL #### [facility] [address] [place] [address] [address] Hari Palmer Urea nitrogen [Mass/Vol] 42.0 mg/dL Critically high 7.0-17.0 [facility] Comment on above: Performed By: #### M G, URIC, RENAL #### [facility] [address] [place] [address] Dr. Hari Palmer UA RANDOM W/MICROSCOPICon BACTERIA TRACE Abnormal NONE SEEN [facility] Comment on above: Performed By: #### U AMIC #### [facility] [address] [place] [address] Dr. Hari Palmer Bilirubin Ql (U) Negative Normal NEGATIVE [facility] Comment on above: Performed By: #### U AMIC #### [facility] [address] [place] [address] [address] Hari Palmer CAST NONE SEEN Normal NONE SEEN [facility] Comment on above: Performed By: #### U AMIC #### [facility] [address] [place] [address] Dr. Hari Palmer Clarity (U) CLEAR Normal CLEAR [facility] Comment on above: Performed By: #### U AMIC #### [facility] [address] [place] [address] [address] Hari Palmer Color (U) LT. YELLOW Normal YELLOW [facility] Comment on above: Performed By: #### U AMIC #### [facility] [address] [place] [address] Dr. Hari Palmer Crystals LM Nom (Urine sed) NONE SEEN Normal NONE SEEN [facility] Comment on above: Performed By: #### U AMIC #### [facility] [address] [place] [address] Dr. Hari Palmer Epithelial cells LM Ql (Urine sed) FEW Abnormal NONE SEEN /RARE [facility] Comment on above: Performed By: #### U AMIC #### [facility] [address] [place] [address] Dr. Hari Palmer Glucose Ql (U) 100 mg/dl Abnormal NEGATIVE [facility] Comment on above: Performed By: #### U AMIC #### [facility] [address] [place] [address] Dr. Hari Palmer Hemoglobin Ql (U) TRACE-INTACT Abnormal NEGATIVE [facility] Comment on above: Performed By: #### U AMIC #### [facility] [address] [place] [address] [address] Hari Palmer Ketones Ql (U) Negative Normal NEGATIVE [facility] Comment on above: Performed By: #### U AMIC #### [facility] [address] [place] [address] Dr. Hari Palmer LEUKOCYTES SMALL Abnormal NEGATIVE [facility] Comment on above: Performed By: #### U AMIC #### [facility] [address] [place] [address] Dr. Hari Palmer MUCOUS NONE SEEN Normal NONE SEEN [facility] Comment on above: Performed By: #### U AMIC #### [facility] [address] [place] [address] Dr. Hari Palmer Nitrite Ql (U) Negative Normal NEGATIVE [facility] Comment on above: Performed By: #### U AMIC #### [facility] [address] [place] [address] Dr. Hari Palmer pH (U) 6.0 [pH] Normal 5-9 [facility] Comment on above: Performed By: #### U AMIC #### [facility] [address] [place] [address] Dr. Hari Palmer RBC 0-2 Normal 0-2 [facility] Comment on above: Performed By: #### U AMIC #### [facility] [address] [place] [address] Dr. Hari Palmer SPEC GRAVITY 1.010 Normal 1.005-<=1.02 5 [facility] Comment on above: Performed By: #### U AMIC #### [facility] [address] [place] [address] Dr. Hari Palmer UA PROTEIN Negative Normal NEGATIVE/ TRACE [facility] Comment on above: Performed By: #### U AMIC #### [facility] [address] [place] [address] Dr. Hari Palmer Urobilinogen Qn (U) 0.2 {Janice'U}/dL Normal 0.2 - 1. 0 [facility] Comment on above: Performed By: #### U AMIC #### [facility] [address] [place] [address] [address] Hari Palmer WBC 5-10 Abnormal NONE SEEN [facility] Comment on above: Performed By: #### U AMIC #### [facility] [address] [place] [address] [address] Hari Palmer URIC ACID SERUMon 12-03-2021 Urate [Mass/Vol] 4.6 mg/dL Normal 2.5-6.2 [facility] Comment on above: Performed By: #### M G, URIC, RENAL #### [facility] [address] [place] [address] [address] Hari Palmer URINE T PROTEIN CREAT RATIOo n 12-03-2021 Protein (U) [Mass/Vol] 31.7 mg/dL Critically high <=12.0 [facility] Comment on above: Performed By: #### M G, URIC, RENAL #### [facility] [address] [place] [address] Dr. Hari Palmer UR PROT CREAT RAT 0.54 Normal [facility] Comment on above: Performed By: #### M G, URIC, RENAL #### [facility] [address] [place] [address] Dr. Hari Palmer URINE CREAT 59.03 mg/dL Normal 20.00-300.00 [facility] Comment on above: Performed By: #### M G, URIC, RENAL #### [facility] [address] [place] [address] Dr. Hari Palmer VITAMIN D 25 OHon 12-03-2021 VIT D 25-OH 38.1 ng/mL Normal [facility] Comment on above: Performed By: #### M G, URIC, RENAL #### [facility] [address] [place] [address] Dr. Hari Palmer VIT D RANGES SEE BELOW Normal [facility] Comment on above: Result Comment: <20 ng/mL Vit D deficient 20 - <30 ng/mL Vit D insufficient 30 - 100 ng/mL Vit D sufficient >100 ng/mL Potential Toxicity Performed By: #### M G, URIC, RENAL #### [facility] [address] [place] [address] Dr. Hari Palmer PTH INTACTon 09-03-2021 PTH, Intact 177 pg/mL Critically high 15-65 [facility] Comment on above: Performed By: #### P THINT #### [facility] [address] [place] [address] Dr. Hari Palmer CBC AUTO DIFFon 09-01-2021 BASO # 0.1 103/ul Normal 0.0-0.1 [facility] Comment on above: Performed By: #### M G, URIC, RENAL #### [facility] [address] [place] [address] Dr. Hari Palmer Basophils/100 WBC (Bld) 0.6 % Normal 0.2-2.0 [facility] Comment on above: Performed By: #### M G, URIC, RENAL #### [facility] [address] [place] [address] Dr. Hari Palmer EO # 0.3 103/ul Normal 0.0-0.7 [facility] Comment on above: Performed By: #### M G, URIC, RENAL #### [facility] [address] [place] [address] Dr. Hari Palmer Eosinophils/100 WBC (Bld) 3.5 % Normal 0.9-7.0 [facility] Comment on above: Performed By: #### M G, URIC, RENAL #### [facility] [address] [place] [address] Dr. Hari Palmer Erythrocyte distribution width (RBC) [Ratio] 13.8 % Normal 11.0-15.0 [facility] Comment on above: Performed By: #### M G, URIC, RENAL #### [facility] [address] [place] [address] Dr. Hari Palmer Hematocrit (Bld) [Volume fraction] 32.8 % Critically low 36.0-48.0 [facility] Comment on above: Performed By: #### M G, URIC, RENAL #### [facility] [address] [place] [address] Dr. Hari Palmer Hemoglobin (Bld) [Mass/Vol] 10.6 g/dL Critically low 12.0-16.0 [facility] Comment on above: Performed By: #### M G, URIC, RENAL #### [facility] [address] [place] [address] Dr. Hari Palmer IG # 0.14 10e3/ul Critically high 0.00-0.03 [facility] Comment on above: Performed By: #### M G, URIC, RENAL #### [facility] [address] [place] [address] Dr. Hari Palmer IG % 1.5 % Critically high 0.0-0.5 [facility] Comment on above: Performed By: #### M G, URIC, RENAL #### [facility] [address] [place] [address] Dr. Hari Palmer LYMPH # 1.8 103/ul Normal 1.2-3.8 [facility] Comment on above: Performed By: #### M G, URIC, RENAL #### [facility] [address] [place] [address] Dr. Hari Palmer Lymphocytes/100 WBC (Bld) 19.3 % Critically low 20.5-60.0 [facility] Comment on above: Performed By: #### M G, URIC, RENAL #### [facility] [address] [place] [address] Dr. Hari Palmer MANUAL DIFF REQ NO Normal [facility] Comment on above: Performed By: #### M G, URIC, RENAL #### [facility] [address] [place] [address] Dr. Hari Palmer MCH (RBC) [Entitic mass] 31.4 pg Normal 26.7-34.0 [facility] Comment on above: Performed By: #### M G, URIC, RENAL #### [facility] [address] [place] [address] Dr. Hari Palmer MCHC (RBC) [Mass/Vol] 32.3 g/dL Normal 29.9-35.2 [facility] Comment on above: Performed By: #### M G, URIC, RENAL #### [facility] [address] [place] [address] Dr. Hari Palmer MCV (RBC) [Entitic vol] 97.0 fL Normal 81.0-99.0 [facility] Comment on above: Performed By: #### M G, URIC, RENAL #### [facility] [address] [place] [address] Dr. aHri Palmer MONO # 0.4 103/ul Normal 0.3-0.8 [facility] Comment on above: Performed By: #### M G, URIC, RENAL #### [facility] [address] [place] [address] Dr. Hari Palmer Monocytes/100 WBC (Bld) 4.2 % Normal 1.7-12.0 [facility] Comment on above: Performed By: #### M G, URIC, RENAL #### [facility] [address] [place] [address] Dr. Hari Palmer NEUT # 6.5 103/ul Normal 1.4-6.5 [facility] Comment on above: Performed By: #### M G, URIC, RENAL #### [facility] [address] [place] [address] Dr. Hari Palmer Neutrophils/100 WBC (Bld) 70.9 % Normal 43.0-75.0 [facility] Comment on above: Performed By: #### M G, URIC, RENAL #### [facility] [address] [place] [address] Dr. Hari Palmer Platelet mean volume (Bld) [Entitic vol] 9.0 fL Critically low 9.5-13.5 [facility] Comment on above: Performed By: #### M G, URIC, RENAL #### [facility] [address] [place] [address] Dr. Hari Palmer PLT 289 103/ul Normal 150-450 [facility] Comment on above: Performed By: #### M G, URIC, RENAL #### [facility] [address] [place] [address] Dr. Hari Palmer RBC 3.38 106/ul Critically low 4.20-5.40 [facility] Comment on above: Performed By: #### M G, URIC, RENAL #### [facility] [address] [address] [address] Hari Palmer WBC 9.1 103/ul Normal 4.0-11.0 [facility] Comment on above: Performed By: #### M G, URIC, RENAL #### [facility] [address] [address] [address] Hari Palmer FERRITINon 09-01-2021 Ferritin [Mass/Vol] 204.0 ng/mL Critically high 6.2-137.0 [facility] Comment on above: Performed By: #### M G, URIC, RENAL #### [facility] [address] [place] [address] Dr. Hari Palmer IRON AND TIBCon 09-01-2021 % SATURATION 28.4 % Normal [facility] Comment on above: Performed By: #### M G, URIC, RENAL #### [facility] [address] [place] [address] Dr. Hari Palmer Iron [Mass/Vol] 80.0 ug/dL Normal 37.0-170.0 [facility] Comment on above: Performed By: #### M G, URIC, RENAL #### [facility] [address] [place] [address] Dr. Hari Palmer TIBC DIRECT 282.0 ug/dL Normal 261.0-497.0 [facility] Comment on above: Performed By: #### M G, URIC, RENAL #### [facility] [address] [place] [address] Dr. Hari Palmer MAGNESIUMon 09-01-2021 Magnesium [Mass/Vol] 2.2 mg/dL Normal 1.6-2.3 [facility] Comment on above: Performed By: #### U AMIC #### [facility] [address] [place] [address] Dr. Hari Palmer RENAL FUNCTION PANELon 09-01 Albumin [Mass/Vol] 3.5 g/dL Normal 3.5-5.0 [facility] Comment on above: Performed By: #### M G, URIC, RENAL #### [facility] [address] [place] [address] Dr. Hari Palmer Calcium [Mass/Vol] 8.7 mg/dL Normal 8.4-10.2 [facility] Comment on above: Performed By: #### M G, URIC, RENAL #### [facility] [address] [place] [address] Dr. Hari Palmer Chloride [Moles/Vol] 105 mmol/L Normal 98-107 [facility] Comment on above: Performed By: #### M G, URIC, RENAL #### [facility] [address] [place] [address] Dr. Hari Palmer CO2 [Moles/Vol] 21.1 mmol/L Critically low 22.0-30.0 [facility] Comment on above: Performed By: #### M G, URIC, RENAL #### [facility] [address] [place] [address] Dr. Hari Palmer Creatinine [Mass/Vol] 3.63 mg/dL Critically high 0.52-1.04 [facility] Comment on above: Performed By: #### M G, URIC, RENAL #### [facility] [address] [place] [address] Dr. Hari Palmer EGFR-AF TAJIK 16 mL/min/1.73m2 Critically low >=60 [facility] Comment on above: Performed By: #### M G, URIC, RENAL #### [facility] [address] [place] [address] Dr. Hari Palmer EGFR-NON AF TAJIK 14 mL/min/1.73m2 Critically low >=60 [facility] Comment on above: Performed By: #### M G, URIC, RENAL #### [facility] [address] [place] [address] Dr. Hari Palmer Glucose [Mass/Vol] 115 mg/dL Critically high 74-106 [facility] Comment on above: Performed By: #### M G, URIC, RENAL #### [facility] [address] [place] [address] Dr. Hari Palmer Phosphate [Mass/Vol] 4.6 mg/dL Critically high 2.5-4.5 [facility] Comment on above: Performed By: #### M G, URIC, RENAL #### [facility] [address] [place] [address] Dr. Hari Palmer Potassium [Moles/Vol] 4.2 mmol/L Normal 3.4-5.0 [facility] Comment on above: Performed By: #### M G, URIC, RENAL #### [facility] [address] [place] [address] Dr. Hari Palmer Sodium [Moles/Vol] 138 mmol/L Normal 137-145 [facility] Comment on above: Performed By: #### M G, URIC, RENAL #### [facility] [address] [place] [address] Dr. Hari Palmer Urea nitrogen [Mass/Vol] 50.0 mg/dL Critically high 7.0-17.0 [facility] Comment on above: Performed By: #### M G, URIC, RENAL #### [facility] [address] [place] [address] Dr. Hari Palmer UA RANDOM W/MICROSCOPICon BACTERIA SMALL Abnormal NONE SEEN [facility] Comment on above: Performed By: #### U AMIC #### [facility] [address] [place] [address] Dr. Hari Palmer Bilirubin Ql (U) Negative Normal NEGATIVE [facility] Comment on above: Performed By: #### U AMIC #### [facility] [address] [place] [address] Dr. Hari Palmer CAST NONE SEEN Normal NONE SEEN [facility] Comment on above: Performed By: #### U AMIC #### [facility] [address] [place] [address] Dr. Hari Palmer Clarity (U) CLEAR Normal CLEAR [facility] Comment on above: Performed By: #### U AMIC #### [facility] [address] [place] [address] Dr. Hari Palmer Color (U) LT. YELLOW Normal YELLOW [facility] Comment on above: Performed By: #### U AMIC #### [facility] [address] [place] [address] Dr. Hari Palmer Crystals LM Nom (Urine sed) NONE SEEN Normal NONE SEEN [facility] Comment on above: Performed By: #### U AMIC #### [facility] [address] [place] [address] Dr. Hari Palmer Epithelial cells LM Ql (Urine sed) MODERATE Abnormal NONE SEEN /RARE [facility] Comment on above: Performed By: #### U AMIC #### [facility] [address] [place] [address] Dr. Hari Palmer Glucose Ql (U) Negative Normal NEGATIVE [facility] Comment on above: Performed By: #### U AMIC #### [facility] [address] [place] [address] Dr. Hari Palmer Hemoglobin Ql (U) TRACE-INTACT Abnormal NEGATIVE [facility] Comment on above: Performed By: #### U AMIC #### [facility] [address] [place] [address] Dr. Hari Palmer Ketones Ql (U) Negative Normal NEGATIVE [facility] Comment on above: Performed By: #### U AMIC #### [facility] [address] [place] [address] Dr. Hari Palmer LEUKOCYTES Negative Normal NEGATIVE [facility] Comment on above: Performed By: #### U AMIC #### [facility] [address] [place] [address] Dr. Hari Palmer MUCOUS NONE SEEN Normal NONE SEEN [facility] Comment on above: Performed By: #### U AMIC #### [facility] [address] [place] [address] Dr. Hari Palmer Nitrite Ql (U) Negative Normal NEGATIVE [facility] Comment on above: Performed By: #### U AMIC #### [facility] [address] [place] [address] Dr. Hari Palmer pH (U) 6.0 [pH] Normal 5-9 [facility] Comment on above: Performed By: #### U AMIC #### [facility] [address] [place] [address] Dr. Hari Palmer RBC 2-5 Abnormal 0-2 [facility] Comment on above: Performed By: #### U AMIC #### [facility] [address] [address] [address] Hari Palmer SPEC GRAVITY 1.010 Normal 1.005-<=1.02 5 [facility] Comment on above: Performed By: #### U AMIC #### [facility] [address] [address] [address] Hari Palmer UA PROTEIN Negative Normal NEGATIVE/ TRACE [facility] Comment on above: Performed By: #### U AMIC #### [facility] [address] [address] [address] Hari Pamler Urobilinogen Qn (U) 0.2 {Janice'U}/dL Normal 0.2 - 1. 0 [facility] Comment on above: Performed By: #### U AMIC #### [facility] [address] [place] [address] Dr. Hari Palmer WBC 2-5 Abnormal NONE SEEN [facility] Comment on above: Performed By: #### U AMIC #### [facility] [address] [place] [address] Dr. Hari Palmer URIC ACID SERUMon 09-01-2021 Urate [Mass/Vol] 4.9 mg/dL Normal 2.5-6.2 [facility] Comment on above: Performed By: #### U AMIC #### [facility] [address] [place] [address] Dr. Hari Palmer URINE T PROTEIN CREAT RATIOo n 09-01-2021 Protein (U) [Mass/Vol] 22.2 mg/dL Critically high <=12.0 [facility] Comment on above: Performed By: #### M G, URIC, RENAL #### [facility] [address] [place] [address] Dr. Hari Palmer UR PROT CREAT RAT 0.47 Normal [facility] Comment on above: Performed By: #### M G, URIC, RENAL #### [facility] [address] [place] [address] Dr. Hari Palmer URINE CREAT 46.89 mg/dL Normal 20.00-300.00 [facility] Comment on above: Performed By: #### M G, URIC, RENAL #### [facility] [id number] Hari Palmer VITAMIN D 25 OHon 09-01-2021 VIT D 25-OH 40.5 ng/mL Normal [facility] Comment on above: Performed By: #### M G, URIC, RENAL #### [facility] [id number] Hari Palmer VIT D RANGES SEE BELOW Normal [facility] Comment on above: Result Comment: <20 ng/mL Vit D deficient 20 - <30 ng/mL Vit D insufficient 30 - 100 ng/mL Vit D sufficient >100 ng/mL Potential Toxicity Performed By: #### M G, URIC, RENAL #### [facility] [address] [place], [place] [address] Dr. Hari Palmer CNOVon 03-30-2021 CNOV Office Visit (NEPHMN ) ----- MANDEEP PURI ([id number]) 1975 F Date Time Provider Department 03/30/21 9:20 AM PERRI BARRETT NEPHCHET During your visit today, we recorded the following information about you: Temperature Pulse Blood pressure Weight 98.2 degrees 75/minute 122/77 93 kg Height 1.549 m Perri Barrett MD 03/30/2021 10:25 AM Signed Mrs. 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 (more content not included)... Normal [facility] Urinalysison 03-30-2021 Bilirubin, Urine Negative Normal Negative [facility] Comment on above: Performed By: #### U A #### [id number] [place] [phone] Clarity (U) Clear Normal Clear [facility] Comment on above: Performed By: #### U A #### [address] [phone] Color (U) Colorless Critically abnormal Yellow [facility] Comment on above: Performed By: #### U A #### [address] [phone] Comments SEE COMMENT Normal [facility] Comment on above: Result Comment: Micr oscopic not warranted Performed By: #### U A #### [id number] [place] [phone] Glucose Ql (U) Trace Critically abnormal Negative [facility] Comment on above: Performed By: #### U A #### [phone] [place] [phone] Hemoglobin/Blood,Ur Negative Normal Negative [facility] Comment on above: Performed By: #### U A #### [address] [phone] Ketones Ql (U) Negative Normal Negative [facility] Comment on above: Performed By: #### U A #### [id number] [place] [address] Leukest Negative Normal Negative [facility] Comment on above: Performed By: #### U A #### [address] [address] Nitrite Ql (U) Negative Normal Negative [facility] Comment on above: Performed By: #### U A #### [address] [address] pH (U) 6.5 [pH] Normal 5.0-8.0 [facility] Comment on above: Performed By: #### U A #### [address] [address] Protein, Urine Negative Normal Negative [facility] Comment on above: Performed By: #### U A #### [address] [address] Specific [place], Ur 1.008 Normal 1.005-1.030 [facility] Comment on above: Performed By: #### U A #### [phone] Urine Codi Comment SEE COMMENT Normal [facility] Comment on above: Result Comment: N/A Performed By: #### U A #### [address] [address] Urobilinogen (U) [Mass/Vol] Negative Normal Negative [facility] Comment on above: Performed By: #### U A #### [address] [id number] Coding Summary.on 04-21-2020 Coding Summary. CODING DATE: 020 FINAL [facility] STATUS: Home (Routine DC) PAYOR: Medical Treg[place] ADMIT DX: REASON FOR VISIT DX: Z20.828 [...] Saved: 04/21/2020 05:17 pm Normal [facility] Physician Orderon 04-21-2020 Physician Order [id number] Normal [facility] Marci 04-12-2020 ALT [Catalytic activity/Vol] 14 U/L Normal 7 - 45 [facility] Comment on above: Result Comment: Kelsea ents treated with Sulfasalazine may generate falsely decreased results for ALT. Performed By: #### A LT #### [facility] [id number] [place] [address] Ronald 04-12-2020 AST [Catalytic activity/Vol] 16 U/L Normal 9 - 39 [facility] Comment on above: Performed By: #### A ST #### [facility] [address] [place] [address] CREATININEon 04-12-2020 Creatinine [Mass/Vol] 2.83 mg/dL High 0.50 - 1.05 [facility] Comment on above: Performed By: #### C REAT #### [facility] [address] [place] [address] Creatinine [Mass/Vol] 18 mL/min/1.73m2 Abnormal >60 [facility] Comment on above: Performed By: #### C REAT #### [facility] [address] [place] [address] Creatinine [Mass/Vol] 22 mL/min/1.73m2 Abnormal >60 [facility] Comment on above: Result Comment: CALC ULATIONS OF ESTIMATED GFR ARE PERFORMED USING THE MDRD STUDY EQUATION FOR THE IDMS-TRACEABLE CREATININE METHODS. CLIN CHEM 2007;53:766-72 Performed By: #### C REAT #### [facility] [address] [place] [address] URIC ACIDon 04-12-2020 Urate [Mass/Vol] 5.2 mg/dL Normal 2.3 - 6.7 [facility] Comment on above: Result Comment: Beti puncture immediately after or during the administration of Metamizole may lead to falsely low results. Testing should be performed immediately prior to Metamizole dosing. Performed By: #### U DICK #### [facility] [address] [place] [address] URIC ACIDon 02-11-2020 Urate [Mass/Vol] 8.2 mg/dL High 2.3 - 6.7 [facility] Comment on above: Result Comment: Beti puncture immediately after or during the administration of Metamizole may lead to falsely low results. Testing should be performed immediately prior to Metamizole dosing. Performed By: #### U DICK #### [facility] [address] [place] [address] Cult,Urineon 08-04-2019 Cult,Urine Specimen Description .CLEAN CATCH URINE Special Requests NOT REPORTED Culture ESCHERICHIA COLI >[id number] CFU/ML Report Status FINAL 08/04/2019 SUSCEPTIBILITY Organism [...] Trimethoprim/Sulfa <=20 SUSCEPTIBLE Piperacillin/Tazobactam <=4 SUSCEPTIBLE Normal [facility] Comment on above: Performed By: #### D CITLALY, LIP, CMPX, TROPI, BNP, CDP, PT #### [facility] [address] [place] [address] Public [employer] Laborer: Sami Dominguez MD Brain Natri. Peptideon 08-02 Natriuretic peptide B (Bld) [Mass/Vol] 152 pg/mL Normal <300 [facility] Comment on above: Result Comment: Pro- BNP results cannot be compared to BNP results. Performed By: #### D CITLALY, LIP, CMPX, TROPI, BNP, CDP, PT #### [facility] [address] [place] [address] Public Works Laborer: Sami Dominguez MD Natriuretic peptide B (Bld) [Mass/Vol] Pro-BNP Reference Range: Normal [facility] Comment on above: Result Comment: Rule Out: <300 Parra Zone: Age <50 300-450 Age 50-75 300-900 Age >75 300-1800 Usually represents mild to moderate HF but other cardiopulmonary causes cannot be ruled out. Rule In: Age <50 >450 Age 50-75 >900 Age >75 >1800 Performed By: #### D CITLALY, LIP, CMPX, TROPI, BNP, CDP, PT #### [facility] [address] [address] [employer] Laborer: Sami Dominguez MD Brain Natriuretic Peptideon 08-02-2019 Natriuretic peptide B (Bld) [Mass/Vol] 152 pg/mL <300 [place] Comment on above: Pro-BNP results eric ot be compared to BNP results. Natriuretic peptide B (Bld) [Mass/Vol] Pro-BNP Reference Range: [place] Comment on above: Rule Out: <300 Parra Zone: Age <50 300-450 Age 50-75 300-900 Age >75 300-1800 Usually represents mild to moderate HF but other cardiopulmonary causes cannot be ruled out. Rule In: Age <50 >450 Age 50-75 >900 Age >75 >1800 CBC Auto Differentialon - Basophils (Bld) [#/Vol] 0.00 10*3/uL [place] Basophils/100 WBC (Bld) 0 % 0 - 2 % [place] Differential Type NOT REPORTED [place] Eosinophils (Bld) [#/Vol] 0.08 10*3/uL [place] Eosinophils/100 WBC (Bld) 1 % 1 - 4 % [place] Erythrocyte distribution width (RBC) [Ratio] 13.2 % 11.8 - 14.4 % [place] Hematocrit (Bld) [Volume fraction] 33.7 % Low 36.3 - 47.1 % [place] Hemoglobin (Bld) [Mass/Vol] 10.7 g/dL Low 11.9 - 15.1 g/dL [place] Immature granulocytes (Bld) [#/Vol] 0 % 0 [place] Immature granulocytes (Bld) [#/Vol] 0.00 10*3/uL [place] Interpretation and review of laboratory results Abnormal [place] Lymphocytes (Bld) [#/Vol] 0.90 10*3/uL Low [place] Lymphocytes/100 WBC (Bld) 12 % Low 24 - 43 % [place] MCH (RBC) [Entitic mass] 30.2 pg 25.2 - 33.5 pg [place] MCHC (RBC) [Mass/Vol] 31.8 g/dL 28.4 - 34.8 g/dL [place] MCV (RBC) [Entitic vol] 95.2 fL 82.6 - 102.9 fL [place] Monocytes (Bld) [#/Vol] 0.00 10*3/uL Low [place] Monocytes/100 WBC (Bld) 0 % Low 3 - 12 % [place] Morphology Geovany (Bld) [Interp] Normal [place] Platelet mean volume (Bld) [Entitic vol] 8.6 fL 8.1 - 13.5 fL [place] Platelets (Bld) [#/Vol] NOT REPORTED [place] Platelets (Bld) [#/Vol] 335 10*3/uL [place] RBC (Bld) [#/Vol] 3.54 10*6/uL Low 3.95 - 5.1 1 m/uL [place] RBC morphology finding Nom (Bld) NOT REPORTED [place] Segmented neutrophils/100 WBC (Bld) 87 % High 36 - 65 % [place] Segs Absolute 6.52 [place] WBC (Bld) [#/Vol] 7.5 10*3/uL [place] WBC (Bld) [#/Vol] 0.0 10*3/uL 0.0 per 10 0 WBC [place] WBC Morphology NOT REPORTED [place] CBC with Diffon 08-02-2019 Abs. Basophil 0.00 k/uL Normal 0.0-0.2 [facility] Comment on above: Performed By: #### D CITLALY, LIP, CMPX, TROPI, BNP, CDP, PT #### [facility] [address] [place] [id number] Public Works Laborer: Sami Dominguez MD Abs.Imm.Granulocyte 0.00 k/uL Normal 0.00-0.30 [facility] Comment on above: Performed By: #### D CITLALY, LIP, CMPX, TROPI, BNP, CDP, PT #### [facility] [address] [place], [facility] Public Works Laborer: Sami Dominguez MD Abs.Neutrophil (Seg) 6.52 k/uL Normal 1.50-8.10 [facility] Comment on above: Performed By: #### D CITLALY, LIP, CMPX, TROPI, BNP, CDP, PT #### [facility] [address] [place], [place] [address] Public Works Laborer: Sami Dominguez MD Basophils/100 WBC (Bld) 0 % Normal 0-2 [facility] Comment on above: Performed By: #### D CITLALY, LIP, CMPX, TROPI, BNP, CDP, PT #### [facility] [address] [place] [address] Public Works Laborer: Sami Dominguez MD Eosinophils (Bld) [#/Vol] 0.08 10*3/uL Normal 0.00-0.44 [facility] Comment on above: Performed By: #### D CITLALY, LIP, CMPX, TROPI, BNP, CDP, PT #### [facility] [address] [place] [address] Public Works Laborer: Sami Dominguez MD Eosinophils/100 WBC (Bld) 1 % Normal 1-4 [facility] Comment on above: Performed By: #### D CITLALY, LIP, CMPX, TROPI, BNP, CDP, PT #### [facility] [address] [place] [address] Public Works Laborer: Sami Dominguez MD Immature granulocytes (Bld) [#/Vol] 0 % Normal 0 [facility] Comment on above: Performed By: #### D CITLALY, LIP, CMPX, TROPI, BNP, CDP, PT #### [facility] [address] [place] [address] Public Works Laborer: Sami Dominguez MD Lymphocytes (Bld) [#/Vol] 0.90 10*3/uL Low 1.10-3.70 [facility] Comment on above: Performed By: #### D CITLALY, LIP, CMPX, TROPI, BNP, CDP, PT #### [facility] [address] [place] [address] Public Works Laborer: Sami Dominguez MD Lymphocytes/100 WBC (Bld) 12 % Low 24-43 [facility] Comment on above: Performed By: #### D CITLALY, LIP, CMPX, TROPI, BNP, CDP, PT #### [facility] [address] [place] [address] Public Works Laborer: Sami Dominguez MD Monocytes (Bld) [#/Vol] 0.00 10*3/uL Low 0.10-1.20 [facility] Comment on above: Performed By: #### D CITLALY, LIP, CMPX, TROPI, BNP, CDP, PT #### [facility] [address] [place] [address] Public Works Laborer: Sami Dominguez MD Monocytes/100 WBC (Bld) 0 % Low 3-12 [facility] Comment on above: Performed By: #### D CITLALY, LIP, CMPX, TROPI, BNP, CDP, PT #### [facility] [address] [place], [place] [id number] Public Works Laborer: Sami Dominguez MD Morphology Geovany (Bld) [Interp] Normal Normal [facility] Comment on above: Performed By: #### D CITLALY, LIP, CMPX, TROPI, BNP, CDP, PT #### [facility] [address] [place] [address] Public Works Laborer: Sami Dominguez MD Neutrophil (Seg) 87 % High 36-65 [facility] Comment on above: Performed By: #### D CITLALY, LIP, CMPX, TROPI, BNP, CDP, PT #### [facility] [address] [place], [facility] Public Works Laborer: Sami Dominguez MD Erythrocyte distribution width (RBC) [Ratio] 13.2 % Normal 11.8-14.4 [facility] Comment on above: Performed By: #### D CITLALY, LIP, CMPX, TROPI, BNP, CDP, PT #### [facility] [address] [place], [place] [id number] Public Works Laborer: Sami Dominguez MD Hematocrit (Bld) [Volume fraction] 33.7 % Low 36.3-47.1 [facility] Comment on above: Performed By: #### D CITLALY, LIP, CMPX, TROPI, BNP, CDP, PT #### [facility] [address] [place], [place] [id number] Public Works Laborer: Sami Dominguez MD Hemoglobin (Bld) [Mass/Vol] 10.7 g/dL Low 11.9-15.1 [facility] Comment on above: Performed By: #### D CITLALY, LIP, CMPX, TROPI, BNP, CDP, PT #### [facility] [address] [place] [address] [address] [place] [facility] Public Works Laborer: Sami Dominguez MD MCH (RBC) [Entitic mass] 30.2 pg Normal 25.2-33.5 [facility] Comment on above: Performed By: #### D CITLALY, LIP, CMPX, TROPI, BNP, CDP, PT #### [facility] [address] [place] [facility] Public Works Laborer: Sami Dominguez MD MCHC (RBC) [Mass/Vol] 31.8 g/dL Normal 28.4-34.8 [facility] Comment on above: Performed By: #### D CITLALY, LIP, CMPX, TROPI, BNP, CDP, PT #### [address] [place], [facility] Public Works Laborer: Sami Dominguez MD MCV (RBC) [Entitic vol] 95.2 fL Normal 82.6-102.9 [facility] Comment on above: Performed By: #### D CITLALY, LIP, CMPX, TROPI, BNP, CDP, PT #### [address] [place] [address] Public Works Laborer: Sami Dominguez MD NRBC Automated 0.0 per 100 WBC Normal 0.0 [facility] Comment on above: Performed By: #### D CITLALY, LIP, CMPX, TROPI, BNP, CDP, PT #### [address] [place] [facility] Public Works Laborer: Sami Dominguez MD Platelet mean volume (Bld) [Entitic vol] 8.6 fL Normal 8.1-13.5 [facility] Comment on above: Performed By: #### D CITLALY, LIP, CMPX, TROPI, BNP, CDP, PT #### [address] [place], [facility] Public Works Laborer: Sami Dominguez MD Platelets (Bld) [#/Vol] 335 10*3/uL Normal 138-453 [facility] Comment on above: Performed By: #### D CITLALY, LIP, CMPX, TROPI, BNP, CDP, PT #### [facility] [address] [place], [place] [id number] Public Works Laborer: Sami Dominguez MD RBC (d) [#/Vol] 3.54 10*6/uL Low 3.95-5.11 [facility] Comment on above: Performed By: #### D CITLALY, LIP, CMPX, TROPI, BNP, CDP, PT #### [facility] [address] [place] [address] Public Works Laborer: Sami Dominguez MD WBC (d) [#/Vol] 7.5 10*3/uL Normal 3.5-11.3 [facility] Comment on above: Performed By: #### D CITLALY, LIP, CMPX, TROPI, BNP, CDP, PT #### [address] [place] [address] Public Works Laborer: Sami Dominguez MD Auto Diff Performed NOT REPORTED Normal [facility] Comment on above: Performed By: #### D CITLALY, LIP, CMPX, TROPI, BNP, CDP, PT #### [address] [place] [address] Public Works Laborer: Sami Dominguez MD Platelets (d) [#/Vol] NOT REPORTED Normal [facility] Comment on above: Performed By: #### D CITLALY, LIP, CMPX, TROPI, BNP, CDP, PT #### [facility] [address] [place] [address] Public Works Laborer: Sami Dominguez MD RBC morphology finding Nom (d) NOT REPORTED Normal [facility] Comment on above: Performed By: #### D CITLALY, LIP, CMPX, TROPI, BNP, CDP, PT #### [facility] [address] [place] [address] Public Works Laborer: Sami Dominguez MD WBC Morphology NOT REPORTED Normal [facility] Comment on above: Performed By: #### D CITLALY, LIP, CMPX, TROPI, BNP, CDP, PT #### [facility] [address] [place] [address] Public Works Laborer: Sami Dominguez MD CTA CHEST ABDOMEN PELVIS W C [facility] 08-02-2019 CTA CHEST ABDOMEN PELVIS W CONTRAST [...] Yunier Yang MD 08/02/19 Final result Normal [facility] [place], [facility] Incoming Radiant Results From [facility] [employer] - 08/02/2019 1:21 PM EDT EXAMINATION: CTA [...] recommended. Reference: J Am Danika Radiol 2013;10:675-681 [place], [place] EXAMINATION: CTA OF THE CHEST, ABDOMEN [...] and caliber without aneurysmal dilatation or dissection. [place], [place] No evidence for aneurysmal dilatation or dissection of the aorta or its branches. Findings most compatible with polycystic kidney disease. Subtle inflammation adjacent to the descending colon is suggestive of subtle colitis. No perforation or abscess formation. No free intraperitoneal air or fluid. 4.1 cm benign appearing ovarian cyst No follow-up imaging is recommended. Reference: J Am Danika Radiol 2013;10:675-681 [facility] [place], [place] Comp Metabolic Pr/rfx MGon 1 (cont.) Normal [facility] Comment on above: Result Comment: Aver age GFR for 40-49 years old: 99 mL/min/1.73sq m Chronic Kidney Disease: <60 mL/min/1.73sq m Kidney failure: <15 mL/min/1.73sq m eGFR calculated using average adult body mass. Additional eGFR calculator available at: http://www.USConnect/multiple_crcl_2011.htm Performed By: #### D CITLALY, LIP, CMPX, TROPI, BNP, CDP, PT #### [facility] [address] [place] [address] Public Works Laborer: Sami Dominguez MD Albumin [Mass/Vol] 4.4 g/dL Normal 3.5-5.2 [facility] Comment on above: Performed By: #### D CITLALY, LIP, CMPX, TROPI, BNP, CDP, PT #### [facility] [address] [place] [address] Public Works Laborer: Sami Dominguez MD Albumin/Globulin [Mass ratio] 1.0 {ratio} Normal 1.0-2.5 [facility] Comment on above: Performed By: #### D CITLALY, LIP, CMPX, TROPI, BNP, CDP, PT #### [facility] [address] [place] [address] Public Works Laborer: Sami Dominguez MD Alkaline Phos 98 U/L Normal 35-104 [facility] Comment on above: Performed By: #### D CITLALY, LIP, CMPX, TROPI, BNP, CDP, PT #### [facility] [address] [place] [address] Public Works Laborer: Sami Dominguez MD ALT [Catalytic activity/Vol] 16 U/L Normal 5-33 [facility] Comment on above: Performed By: #### D CITLALY, LIP, CMPX, TROPI, BNP, CDP, PT #### [facility] [address] [place] [address] Public Works Laborer: Sami Dominguez MD Anion gap [Moles/Vol] 18 mmol/L High 9-17 [facility] Comment on above: Performed By: #### D CITLALY, LIP, CMPX, TROPI, BNP, CDP, PT #### [facility] [address] [place] [address] Public Works Laborer: Sami Dominguez MD AST [Catalytic activity/Vol] 18 U/L Normal <32 [facility] Comment on above: Performed By: #### D CITLALY, LIP, CMPX, TROPI, BNP, CDP, PT #### [facility] [address] [place] [address] [place] [address] Public Works Laborer: Sami Dominguez MD Bilirubin Ql (U) 0.31 mg/dL Normal 0.3-1.2 [facility] Comment on above: Performed By: #### D CITLALY, LIP, CMPX, TROPI, BNP, CDP, PT #### [address] [place] [address] Public Works Laborer: Sami Dominguez MD BUN/CRE Ratio 13 Normal 9-20 [facility] Comment on above: Performed By: #### D CITLALY, LIP, CMPX, TROPI, BNP, CDP, PT #### [facility] [address] [place] [address] [place] [address] Public Works Laborer: Sami Dominguez MD Calcium [Mass/Vol] 9.7 mg/dL Normal 8.6-10.4 [facility] Comment on above: Performed By: #### D CITLALY, LIP, CMPX, TROPI, BNP, CDP, PT #### [facility] [address] [place] [address] Public Works Laborer: Sami Dominguez MD Chloride [Moles/Vol] 95 mmol/L Low 98-107 [facility] Comment on above: Performed By: #### D CITLALY, LIP, CMPX, TROPI, BNP, CDP, PT #### [facility] [address] [place] [address] Public Works Laborer: Sami Dominguez MD CO2 [Moles/Vol] 18 mmol/L Low 20-31 [facility] Comment on above: Performed By: #### D CITLALY, LIP, CMPX, TROPI, BNP, CDP, PT #### [facility] [address] [place] [address] Public Works Laborer: Sami Dominguez MD Creatinine [Mass/Vol] 3.07 mg/dL High 0.50-0.90 [facility] Comment on above: Performed By: #### D CITLALY, LIP, CMPX, TROPI, BNP, CDP, PT #### [facility] [address] [place] [address] Public Works Laborer: Sami Dominguez MD GFR, Amer 20 mL/min Low >60 [facility] Comment on above: Performed By: #### D CITLALY, LIP, CMPX, TROPI, BNP, CDP, PT #### [facility] [address] [place], [facility] Public Works Laborer: Sami Dominguez MD GFR,non Amer 17 mL/min Low >60 [facility] Comment on above: Performed By: #### D CITLALY, LIP, CMPX, TROPI, BNP, CDP, PT #### [facility] [address] [place] [address] Public Works Laborer: Sami Dominguez MD Glucose [Mass/Vol] 89 mg/dL Normal 70-99 [facility] Comment on above: Performed By: #### D CITLALY, LIP, CMPX, TROPI, BNP, CDP, PT #### [facility] [address] [place] [address] Public Works Laborer: Sami Dominguez MD Potassium [Moles/Vol] 3.9 mmol/L Normal 3.7-5.3 [facility] Comment on above: Performed By: #### D CITLALY, LIP, CMPX, TROPI, BNP, CDP, PT #### [facility] [address] [place] [address] Public Works Laborer: Sami Dominguez MD Protein [Mass/Vol] 8.8 g/dL High 6.4-8.3 [facility] Comment on above: Performed By: #### D CITLALY, LIP, CMPX, TROPI, BNP, CDP, PT #### [facility] [address] [place] [address] Public Works Laborer: Sami Dominguez MD Sodium [Moles/Vol] 131 mmol/L Low 135-144 [facility] Comment on above: Performed By: #### D CITLALY, LIP, CMPX, TROPI, BNP, CDP, PT #### [facility] [address] [place] [address] Public Works Laborer: Sami Dominguez MD Staging: Normal [facility] Comment on above: Result Comment: [...] TROPI, BNP, CDP, PT #### [facility] [address] [place] [address] Public Works Laborer: Sami Dominguez MD Urea nitrogen [Mass/Vol] 39 mg/dL High 6-20 [facility] Comment on above: Performed By: #### D CITLALY, LIP, CMPX, TROPI, BNP, CDP, PT #### [facility] [address] [place] [address] Public Works Laborer: Sami Dominguez MD Comprehensive Metabolic Pane l w/ Reflex to MGon 08-02-2019 Albumin [Mass/Vol] 4.4 g/dL 3.5 - 5.2 g/dL [place] Albumin/Globulin [Mass ratio] 1.0 {ratio} [place] ALP [Catalytic activity/Vol] 98 U/L 35 - 104 U/L [place] ALT [Catalytic activity/Vol] 16 U/L 5 - 33 U/L [place] Anion gap [Moles/Vol] 18 mmol/L High 9 - 17 mmol/L [place] AST [Catalytic activity/Vol] 18 U/L <32 [place] Bilirubin Ql (U) 0.31 mg/dL 0.3 - 1.2 mg/dL [place] Bun/Cre Ratio 13 [place] Calcium [Mass/Vol] 9.7 mg/dL 8.6 - 10. 4 mg/dL [place] Chloride [Moles/Vol] 95 mmol/L Low 98 - 10 7 mmol/L [place] CO2 [Moles/Vol] 18 mmol/L Low 20 - 31 mmol/L [place] Creatinine [Mass/Vol] 3.07 mg/dL High 0.5 - 0.9 mg/dL [place] GFR 20 mL/min Low >60 [place] GFR Non- 17 mL/min Low >60 [place] Glucose [Mass/Vol] 89 mg/dL 70 - 99 mg/dL [place] Interpretation and review of laboratory results Abnormal [place] Potassium [Moles/Vol] 3.9 mmol/L 3.7 - 5.3 mmol/L [place] Protein [Mass/Vol] 8.8 g/dL High 6.4 - 8.3 g/dL [place] Sodium [Moles/Vol] 131 mmol/L Low 135 - 144 mmol/L [place] Urea nitrogen [Mass/Vol] 39 mg/dL High 6 - 20 mg/dL [place] D-Dimer Teston 08-02-2019 D-Dimer Test 1.15 mg/L FEU High 0.19-0.50 [facility] Comment on above: Result Comment: [...] LIP, CMPX, TROPI, BNP, CDP, PT #### [facility] [address] [address] Public Works Laborer: Sami Dominguez MD D-Dimer, Quantitativeon 07-07 D-Dimer, Quant 1.15 High [place] Comment on above: Elevated levels of [...] Interpretation and review of laboratory results Abnormal [place] Lactate, Sepsison 08-02-2019 Lactic Acid, Sepsis 3.6 mmol/L High 0.5-1.9 [facility] Comment on above: Performed By: #### L ACDS #### [facility] [address] [address] Public Works Laborer: Sami Dominguez MD Lactic Acid,Sep Wbld NOT REPORTED Normal 0.5-1.9 [facility] Comment on above: Performed By: #### L ACDS #### [facility] [address] [address] Public Works Laborer: Sami Dominguez MD Interpretation and review of laboratory results Abnormal [place] Lactic Acid, Sepsis 3.6 mmol/L High 0.5 - 1. 9 mmol/L [place] Lactic Acid, Sepsis, Whole Blood NOT REPORTED 0.5 - 1.9 mmol/L [place] Lactic Acidon 08-02-2019 Lactate [Moles/Vol] 1.0 mmol/L Normal 0.5-2.2 [facility] Comment on above: Performed By: #### D CITLALY, LIP, CMPX, TROPI, BNP, CDP, PT #### [facility] [address] [place] [address] Public Works Laborer: Sami Dominguez MD Lactate [Moles/Vol] NOT REPORTED Normal 0.7-2.1 [facility] Comment on above: Performed By: #### D CITLALY, LIP, CMPX, TROPI, BNP, CDP, PT #### [facility] [address] [place] [address] Public Works Laborer: Sami Dominguez MD Lactic Acid, Plasmaon 2018 Lactate [Moles/Vol] 1 mmol/L 0.5 - 2. 2 mmol/L [place] Lactic Acid, Whole Blood NOT REPORTED 0.7 - 2.1 mmol/L [place] Lipaseon 08-02-2019 Lipase [Catalytic activity/Vol] 38 U/L Normal 13-60 [facility] Comment on above: Performed By: #### D CITLALY, LIP, CMPX, TROPI, BNP, CDP, PT #### [facility] [address] [place] [address] Public Works Laborer: Sami Dominguez MD Lipase [Catalytic activity/Vol] 38 U/L 13 - 60 U/L [place] Metabolic Panelon 08-02-2019 GFR/1.73 sq M predicted among non-blacks MDRD (S/P/Bld) [Vol rate/Area] [place], [place] Comment on above: Stage 1: Some [...] body mass. Additional eGFR calculator available at: http://www.USConnect/multiple_crcl_2012.htm Microscopic Urinalysison Amorphous, UA NOT REPORTED None [place] Bacteria, UA 1+ Abnormal None [place] Casts UA NOT REPORTED /LPF [place] Crystals UA NOT REPORTED None /HPF [place] Epithelial Cells UA 2 TO 5 [place] Interpretation and review of laboratory results Abnormal [place] Mucus, UA NOT REPORTED None [place] Other Observations UA NOT REPORTED NOT REQ. M [place], [place] RBC (U) [#/Vol] None [place] Renal Epithelial, Urine NOT REPORTED 0 /HPF [place] Trichomonas, UA NOT REPORTED None [place] WBC, UA 50 TO 100 [place] Yeast, UA NOT REPORTED None [place] - [place] PTon 08-02-2019 INR Coag (PPP) [Relative time] 1.0 {INR} Normal 0.9-1.2 [facility] Comment on above: Performed By: #### D CITLALY, LIP, CMPX, TROPI, BNP, CDP, PT #### [facility] [address] [place] [address] Public Works Laborer: Sami Dominguez MD PT Coag (PPP) [Time] 10.0 s Normal 9.7-12.2 [facility] Comment on above: Performed By: #### D CITLALY, LIP, CMPX, TROPI, BNP, CDP, PT #### [facility] [address] [place] [address] Public Works Laborer: Sami Dominguez MD Protime-INRon 08-02-2019 INR Coag (PPP) [Relative time] 1.0 {INR} [place], [place] PT Coag (PPP) [Time] 10 s [place], [place] Troponinon 08-02-2019 Troponin I.cardiac [Mass/Vol] ng/mL Normal <0.03 [facility] Comment on above: Result Comment: Trop onin T results cannot be compared to Troponin-I results. Performed By: #### D CITLALY, LIP, CMPX, TROPI, BNP, CDP, PT #### [facility] [address] [place] [address] Public Works Laborer: Sami Dominguez MD Troponin I.cardiac [Mass/Vol] Normal [facility] Comment on above: Result Comment: [...] LIP, CMPX, TROPI, BNP, CDP, PT #### [facility] [address] [place] [address] Public Works Laborer: Sami Dominguez MD Troponin I.cardiac [Mass/Vol] NOT REPORTED Normal 0-14 [facility] Comment on above: Performed By: #### D CITLALY, LIP, CMPX, TROPI, BNP, CDP, PT #### [facility] [address] [place] [address] Public Works Laborer: Sami Dominguez MD Troponin I.cardiac [Mass/Vol] [place] Comment on above: Reference Range: <0.03 [...] diagnosis. Troponin T.cardiac [Mass/Vol] ug/L <0.03 ng/mL [place] Comment on above: Troponin T results c annot be compared to Troponin-I results. Troponin, High Sensitivity NOT REPORTED 0 - 14 ng/L [place] Troponin I.cardiac [Mass/Vol] ng/mL Normal <0.03 [facility] Comment on above: Result Comment: Trop onin T results cannot be compared to Troponin-I results. Performed By: #### D CITLALY, LIP, CMPX, TROPI, BNP, CDP, PT #### [facility] [address] [place] [address] [place] [address] Public Works Laborer: Sami Dominguez MD Troponin I.cardiac [Mass/Vol] Normal [facility] Comment on above: Result Comment: [...] LIP, CMPX, TROPI, BNP, CDP, PT #### [facility] [address] [place] [address] [place] [address] Public Works Laborer: Sami Dominguez MD Troponin I.cardiac [Mass/Vol] NOT REPORTED Normal 0-14 [facility] Comment on above: Performed By: #### D CITLALY, LIP, CMPX, TROPI, BNP, CDP, PT #### [facility] [address] [place] [address] [place] [address] Public Works Laborer: Sami Dominguez MD Troponin I.cardiac [Mass/Vol] [place] Comment on above: Reference Range: <0.03 [...] diagnosis. Troponin T.cardiac [Mass/Vol] ug/L <0.03 ng/mL [place] Comment on above: Troponin T results c annot be compared to Troponin-I results. Troponin, High Sensitivity NOT REPORTED 0 - 14 ng/L [place] UA w/Reflex Cultureon 2018 Acetoacetic Acid,Ur Negative Normal [facility] Comment on above: Performed By: #### D CITLALY, LIP, CMPX, TROPI, BNP, CDP, PT #### [facility] [address] [place] [address] [place] [id number] Public Works Laborer: Sami Dominguez MD Bilirubin, SemiQt,Ur Negative Normal [facility] Comment on above: Performed By: #### D CITLALY, LIP, CMPX, TROPI, BNP, CDP, PT #### [address] [place], [facility] Public Works Laborer: Sami Dominguez MD Color (U) YELLOW Normal [facility] Comment on above: Performed By: #### D CITLALY, LIP, CMPX, TROPI, BNP, CDP, PT #### [facility] [address] [place] [address] Dr[place], [facility] Public Works Laborer: Sami Dominguez MD Glucose Ql (U) Negative Normal [facility] Comment on above: Performed By: #### D CITLALY, LIP, CMPX, TROPI, BNP, CDP, PT #### [facility] [address] [place] [address] [place] [address] Public Works Laborer: Sami Dominguez MD Hemoglobin, Ur 1+ Abnormal [facility] Comment on above: Performed By: #### D CITLALY, LIP, CMPX, TROPI, BNP, CDP, PT #### [facility] [address] [place], [facility] Public Works Laborer: Sami Dominguez MD Leukocyte esterase Test strip Ql (U) MODERATE Abnormal NEG [facility] Comment on above: Performed By: #### D CITLALY, LIP, CMPX, TROPI, BNP, CDP, PT #### [facility] [address] [place], [facility] Public Works Laborer: Sami Dominguez MD Nitrite,Ur Negative Normal NEG [facility] Comment on above: Performed By: #### D CITLALY, LIP, CMPX, TROPI, BNP, CDP, PT #### [address] Castillo, [facility] Public Works Laborer: Sami Dominguez MD pH (U) 6.0 [pH] Normal 5.0-9.0 [facility] Comment on above: Performed By: #### D CITLALY, LIP, CMPX, TROPI, BNP, CDP, PT #### [address] [place], [facility] Public Works Laborer: Sami Dominguez MD Protein Ql (U) TRACE Abnormal NEG [facility] Comment on above: Performed By: #### D CITLALY, LIP, CMPX, TROPI, BNP, CDP, PT #### [address] Cast[place], [facility] Public Works Laborer: Sami Dominguez MD Specific gravity (U) [Rel density] 1.010 Normal 1.010-1.020 [facility] Comment on above: Performed By: #### D CITLALY, LIP, CMPX, TROPI, BNP, CDP, PT #### [facility] [address] [place] [address] Public Works Laborer: Sami Dominguez MD Turbidity CLEAR Normal CLEAR [facility] Comment on above: Performed By: #### D CITLALY, LIP, CMPX, TROPI, BNP, CDP, PT #### [facility] [address] [place] [address] Public Works Laborer: Sami Dominguez MD Urobilinogen,Ur Normal Normal NORM [facility] Comment on above: Performed By: #### D CITLALY, LIP, CMPX, TROPI, BNP, CDP, PT #### [facility] [address] [place] [address] Public Works Laborer: Sami Dominguez MD Comment NOT REPORTED Normal [facility] Comment on above: Performed By: #### D CITLALY, LIP, CMPX, TROPI, BNP, CDP, PT #### [facility] [address] [place] [address] Public Works Laborer: Sami Dominguez MD Urinalysis Reflex to Culture on 08-02-2019 Bilirubin Urine Negative NEGATIVE [place] Color, UA YELLOW YELLOW [place] Glucose, Ur Negative NEGATIVE [place] Interpretation and review of laboratory results Abnormal [place] Ketones Ql (U) Negative NEGATIVE [place] Leukocyte esterase Test strip Ql (U) MODERATE Abnormal NEGATIVE [place] Nitrite, Urine Negative NEGATIVE [place] pH, UA 6.0 [place] Protein (U) [Mass/Vol] TRACE Abnormal NEGATIVE [place] Specific [place], UA 1.010 [place], [place] Turbidity UA CLEAR CLEAR [place] Urinalysis Comments NOT REPORTED [place] Urine Hgb 1+ Abnormal NEGATIVE [place] Urobilinogen, Urine Normal Normal [place] Urinalysis,Microon 9 ----- Normal [facility] Comment on above: Performed By: #### D CITLALY, LIP, CMPX, TROPI, BNP, CDP, PT #### [facility] [address] [place] [address] Public Works Laborer: Sami Dominguez MD Bacteria LM.HPF (Urine sed) [#/Area] 1+ Abnormal NONE [facility] Comment on above: Performed By: #### D CITLALY, LIP, CMPX, TROPI, BNP, CDP, PT #### [facility] [address] [place], [place] [id number] Public Works Laborer: Sami Dominguez MD Epithelial cells LM.HPF (Urine sed) [#/Area] 2 TO 5 Normal 0-25 [facility] Comment on above: Performed By: #### D CITLALY, LIP, CMPX, TROPI, BNP, CDP, PT #### [facility] [address] [place] [address] Public Works Laborer: Sami Dominguez MD RBC (U) [#/Vol] None Normal 0-2 [facility] Comment on above: Performed By: #### D CITLALY, LIP, CMPX, TROPI, BNP, CDP, PT #### [facility] [address] [place] [id number] Public Works Laborer: Sami Dominguez MD WBC (U) [#/Vol] 50 TO 100 Normal 0-5 [facility] Comment on above: Performed By: #### D CITLALY, LIP, CMPX, TROPI, BNP, CDP, PT #### [address] [place] [id number] Public Works Laborer: Sami Dominguez MD Amorphous sediment LM Ql (Urine sed) NOT REPORTED Normal [facility] Comment on above: Performed By: #### D CITLALY, LIP, CMPX, TROPI, BNP, CDP, PT #### [facility] [address] [place] [address] Public Works Laborer: Sami Dominguez MD Casts LM.LPF (Urine sed) [#/Area] NOT REPORTED Normal [facility] Comment on above: Performed By: #### D CITLALY, LIP, CMPX, TROPI, BNP, CDP, PT #### [facility] [address] [place] [address] Dr. [place]illo, [place] [address] Public Works Laborer: Sami Dominguez MD Crystals LM Nom (Urine sed) NOT REPORTED Normal [facility] Comment on above: Performed By: #### D CITLALY, LIP, CMPX, TROPI, BNP, CDP, PT #### [facility] [address] [place] [address] Public Works Laborer: Sami Dominguez MD Epithelial, Renal NOT REPORTED Normal [address] [place] [address] Comment on above: Performed By: #### D CITLALY, LIP, CMPX, TROPI, BNP, CDP, PT #### [facility] [address] [place], [place] [address] Public Works Laborer: Sami Dominguez MD Mucus Strands NOT REPORTED Normal [facility] Comment on above: Performed By: #### D CITLALY, LIP, CMPX, TROPI, BNP, CDP, PT #### [address] [place], [place] [address] Public Works Laborer: Sami Dominguez MD Other Observations NOT REPORTED [facility] on above: Performed By: #### D CITLALY, LIP, CMPX, TROPI, BNP, CDP, PT #### [address] [place], [facility] Public Works Laborer: Sami Dominguez MD Trichomonas NOT REPORTED Normal [facility] Comment on above: Performed By: #### D CITLALY, LIP, CMPX, TROPI, BNP, CDP, PT #### [facility] [address] [place] [address] Dr. Castillo, [facility] Public Works Laborer: Sami Dominguez MD Yeast LM Ql (Urine sed) NOT REPORTED Normal [facility] Comment on above: Performed By: #### D CITLALY, LIP, CMPX, TROPI, BNP, CDP, PT #### [facility] [address] [place] [address] Public Works Laborer: Sami Dominguez MD XR CHEST PORTABLEon 08-02-20 [...] Cullen Ngo MD 08/02/19 Final result Normal [facility] EXAMINATION: ONE XRA Y VIEW OF THE CHEST 08/02/2019 12:59 pm COMPARISON: None. HISTORY: ORDERING SYSTEM PROVIDED HISTORY: CP TECHNOLOGIST PROVIDED HISTORY: CP FINDINGS: Heart size and pulmonary vessels are within normal limits. Lungs are clear. No focal infiltrates or significant pleural effusions are seen. There is no acute osseous abnormality. Monitor leads overlie the chest. [place] No acute cardiopulmo nary process. [place] Moshe, [facility] Incoming Radiant Results From [facility] - 08/02/2019 1:10 PM EDT EXAMINATION: ONE [...] the chest. IMPRESSION: No acute cardiopulmonary process. [place] Vital Signs Date Time Vital Sign Value Performing Clinician Facility 03-15-2024 17:34-0400 Body height 157.48 cm CECILIA Andreia Boyceb Work Phone: [facility] 03-15-2024 17:34-0400 Body mass index (BMI) [Ratio] 31.8 kg/m2 DISPLAY ASSOCIATE Andreia Boyceb Work Phone: [facility] 03-15-2024 17:34-0400 Body temperature 100.3 [degF] CECILIA Andreia Boyceb Work Phone: [facility] 03-15-2024 17:34-0400 Body weight 78.92 kg DISPLAY ASSOCIATE Andreia Jerry Work Phone: [facility] 03-15-2024 17:34-0400 Diastolic blood pressure 79 mm[Hg] DISPLAY ASSOCIATE Andreia Jerry Work Phone: [facility] 03-15-2024 17:34-0400 Heart rate 88 /min DISPLAY ASSOCIATE Andreia Jerry Work Phone: [facility] 03-15-2024 17:34-0400 Respiratory rate 18 /min DISPLAY ASSOCIATE Andreia Ejrry Work Phone: [facility] 03-15-2024 17:34-0400 SaO2% (BldA) [Mass fraction] 96 % DISPLAY ASSOCIATE Andreia Jerry Work Phone: [facility] 03-15-2024 17:34-0400 Systolic blood pressure 121 mm[Hg] DISPLAY ASSOCIATE Andreia Jerry Work Phone: [facility] 07-30-2022 17:40-0400 Body height 157.48 cm Yaneth Toni Other [facility] Other 07-30-2022 17:40-0400 Body mass index (BMI) [Ratio] 36.69 kg/m2 Yaneth Toni Other [facility] Other 07-30-2022 17:40-0400 Body temperature 97.4 [degF] Yaneth Toni Other [facility] Other 07-30-2022 17:40-0400 Body weight 90.99 kg Yaneth Toni Other [facility] Other 07-30-2022 17:40-0400 Diastolic blood pressure 85 mm[Hg] Yaneth Toni Other [facility] Other 07-30-2022 17:40-0400 Respiratory rate 18 /min Yaneth Toni Other [facility] Other 07-30-2022 17:40-0400 SaO2% (BldA) [Mass fraction] 99 % Yaneth Toni Other [facility] Other 07-30-2022 17:40-0400 Systolic blood pressure 124 mm[Hg] Yaneth Toni Other [facility] Other 07-03-2022 09:45-0400 Body height 157.48 cm Estefania Vo Other [facility] Other 07-03-2022 09:45-0400 Body mass index (BMI) [Ratio] 36.76 kg/m2 Estefania Vo Other [facility] Other 07-03-2022 09:45-0400 Body temperature 97 [degF] Estefania Vo Other [facility] Other 07-03-2022 09:45-0400 Body weight 91.17 kg Estefania Vo Other [facility] Other 07-03-2022 09:45-0400 Diastolic blood pressure 60 mm[Hg] Estefania Vo Other [facility] Other 07-03-2022 09:45-0400 SaO2% (BldA) [Mass fraction] 99 % Estefania Vo Other [facility] Other 07-03-2022 09:45-0400 Systolic blood pressure 110 mm[Hg] Estefania Vo Other [facility] [employer] Other 06-20-2022 16:10-0400 Diastolic blood pressure 68 mm[Hg] DO Ming Espinoza Work Phone: [facility] 06-20-2022 16:10-0400 Heart rate 69 /min DO Ming Alexis Work Phone: [facility] 06-20-2022 16:10-0400 Respiratory rate 18 /min DO Ming Alexis Work Phone: [facility] 06-20-2022 16:10-0400 SaO2% (BldA) [Mass fraction] 100 % DO Minglizz Espinoza Work Phone: [facility] 06-20-2022 16:10-0400 Systolic blood pressure 126 mm[Hg] DO Minglizz Espinoza Work Phone: [facility] 06-20-2022 13:15-0400 Body height 157.48 cm DO Ming Espinoza Work Phone: [facility] 06-20-2022 13:15-0400 Body temperature 98.6 [degF] DO Ming Espinoza Work Phone: [facility] 06-20-2022 13:15-0400 Body weight 91.5 kg DO Ming Espinoza Work Phone: [facility] 06-18-2022 10:45-0400 Diastolic blood pressure 79 mm[Hg] DO Minglizz Espinoza Work Phone: [facility] 06-18-2022 10:45-0400 Heart rate 66 /min DO Ming Alexis Work Phone: [facility] 06-18-2022 10:45-0400 Respiratory rate 16 /min DO Ming Alexis Work Phone: [facility] 06-18-2022 10:45-0400 SaO2% (BldA) [Mass fraction] 100 % DO Ming Alexis Work Phone: [facility] 06-18-2022 10:45-0400 Systolic blood pressure 130 mm[Hg] DO Ming Espinoza Work Phone: [facility] 06-18-2022 08:08-0400 Body mass index (BMI) [Ratio] 37.8 kg/m2 DO Ming Espinoza Work Phone: [facility] 06-18-2022 07:41-0400 Body height 157.48 cm DO Ming Espinoza Work Phone: [facility] 06-18-2022 07:41-0400 Body weight 93.89 kg DO Ming Espinoza Work Phone: [facility] 06-18-2022 06:26-0400 Body temperature 98.5 [degF] DO Ming Espinoza Work Phone: [facility] 05-30-2022 11:00-0400 Body height 157.48 cm Jesus Parham Other [facility] Other 05-30-2022 11:00-0400 Body mass index (BMI) [Ratio] 36.76 kg/m2 Jesus Parham Other [facility] Other 05-30-2022 11:00-0400 Body temperature 97.6 [degF] Jesus Parham Other [facility] Other 05-30-2022 11:00-0400 Body weight 91.17 kg Jesus Parham Other [facility] Other 05-30-2022 11:00-0400 Diastolic blood pressure 76 mm[Hg] Jesus Parham Other [facility] Other 05-30-2022 11:00-0400 SaO2% (BldA) [Mass fraction] 98 % Jesus Parham Other [facility] Other 05-30-2022 11:00-0400 Systolic blood pressure 128 mm[Hg] Jesus Parham Other [facility] Other 05-02-2022 14:40-0400 Body height 157.48 cm Yaneth Toni Other [facility] Other 05-02-2022 14:40-0400 Body mass index (BMI) [Ratio] 36.76 kg/m2 Yaneth Toni Other [facility] Other 05-02-2022 14:40-0400 Body temperature 97.7 [degF] Yaneth Toni Other [facility] Other 05-02-2022 14:40-0400 Body weight 91.17 kg Yaneth Toni Other [facility] Other 05-02-2022 14:40-0400 Diastolic blood pressure 88 mm[Hg] Yaneth Toni Other [facility] Other 05-02-2022 14:40-0400 Respiratory rate 18 /min Yaneth Toni Other [facility] Other 05-02-2022 14:40-0400 SaO2% (BldA) [Mass fraction] 98 % Yaneth Toni Other [facility] Other 05-02-2022 14:40-0400 Systolic blood pressure 121 mm[Hg] Yaneth Toni Other [facility] Other 04-30-2022 10:10-0400 Body height 157.48 cm Dipika Stinson Other [facility] Other 04-30-2022 10:10-0400 Body mass index (BMI) [Ratio] 37.86 kg/m2 Dipika Stinson Other [facility] Other 04-30-2022 10:10-0400 Body temperature 97.4 [degF] Dipika Stinson Other [facility] Other 04-30-2022 10:10-0400 Body weight 93.9 kg Dipika Stinson Other [facility] Other 04-30-2022 10:10-0400 Diastolic blood pressure 80 mm[Hg] Dipika Stinson Other [facility] Other 04-30-2022 10:10-0400 Respiratory rate 16 /min Dipika Stinson Other [facility] Other 04-30-2022 10:10-0400 SaO2% (BldA) [Mass fraction] 100 % Dipika Stinson Other [facility] Other 04-30-2022 10:10-0400 Systolic blood pressure 117 mm[Hg] Dipika Stinson Other [facility] Other 04-01-2022 09:13-0400 Diastolic blood pressure 62 mm[Hg] DO Ming Espinoza Work Phone: [facility] 04-01-2022 09:13-0400 Heart rate 83 /min DO Ming Espinoza Work Phone: [facility] 04-01-2022 09:13-0400 Respiratory rate 16 /min DO Ming Espinoza Work Phone: [facility] 04-01-2022 09:13-0400 SaO2% (BldA) [Mass fraction] 97 % DO Ming Espinoza Work Phone: [facility] 04-01-2022 09:13-0400 Systolic blood pressure 101 mm[Hg] DO Ming Espinoza Work Phone: [facility] 04-01-2022 07:23-0400 Body height 157.48 cm DO Ming Espinoza Work Phone: [facility] 04-01-2022 07:23-0400 Body mass index (BMI) [Ratio] 37.8 kg/m2 DO Ming Espinoza Work Phone: [facility] 04-01-2022 07:23-0400 Body temperature 97.8 [degF] DO Ming Espinoza Work Phone: [facility] 04-01-2022 07:23-0400 Body weight 93.89 kg DO Ming Espinoza Work Phone: [facility] 12-06-2021 16:20-0500 Body height 157.48 cm Yaneth Toni Other [facility] Other 12-06-2021 16:20-0500 Body mass index (BMI) [Ratio] 37.86 kg/m2 Yaneth Toni Other [facility] Other 12-06-2021 16:20-0500 Body weight 93.9 kg Yaneth Toni Other [facility] Other 12-06-2021 16:20-0500 Diastolic blood pressure 89 mm[Hg] Yaneth Toni Other [facility] Other 12-06-2021 16:20-0500 Respiratory rate 18 /min Yaneth Toni Other [facility] Other 12-06-2021 16:20-0500 SaO2% (BldA) [Mass fraction] 97 % Yaneth Toni Other [facility] Other 12-06-2021 16:20-0500 Systolic blood pressure 134 mm[Hg] Yaneth Toni Other [facility] Other 08-02-2019 16:35-0400 Body Temperature 99.3 [degF] [facility] [place] 08-02-2019 16:27-0400 Pulse (Heart Rate) 110 /min [place], [place] 08-02-2019 16:27-0400 Pulse Oximetry 98 % [place], [place] 08-02-2019 16:27-0400 Respiratory Rate 14 /min [facility] [place] 08-02-2019 16:16-0400 BP Diastolic 56 mm[Hg] [place] 08-02-2019 16:16-0400 BP Systolic 97 mm[Hg] [place] 08-02-2019 14:59-0400 BMI (Body Mass Index) 37.79 kg/m2 [place] 08-02-2019 14:59-0400 Body weight 90.72 kg [place] 08-02-2019 14:59-0400 Height 154.9 cm [place] Encounters Encounter Date Encounter Type Care Provider Facility Start: 04-27-2024 End: 04-27-2024 ambulatory MUNIRA PHAN [facility] Start: 04-23-2024 ambulatory MUNIRA PHAN [facility] Start: 04-19-2024 End: 04-19-2024 ambulatory BLAKE HINOJOSA Not Available Start: 04-14-2024 End: 04-14-2024 ambulatory MUNIRA PHAN Not Available Start: 03-23-2024 End: 03-23-2024 ambulatory MING ESPINOZA Not Available Start: 03-15-2024 End: 03-15-2024 ambulatory Andreia M Jerry [facility] Work Phone: Start: 03-15-2024 End: 03-15-2024 Departed Referred DISPLAY ASSOCIATERoxy Edwards Work Phone: [facility] [address] [place] Work Phone: Start: 03-15-2024 End: 03-15-2024 Patient encounter procedure CECILIA Edwards Work Phone: Replaced By [facility] [place] Work Phone: Start: 12-23-2023 End: 12-23-2023 ambulatory MUNIRA PHAN [facility] Start: 12-01-2023 End: 12-01-2023 ambulatory MING ESPINOZA Not Available Start: 11-06-2023 End: 11-06-2023 Patient encounter procedure DO Ming Espinoza Work Phone: [facility] [address] Work Phone: Start: 11-06-2023 End: 11-06-2023 ambulatory DO Ming Espinoza Work Phone: [facility] Work Phone: Start: 10-13-2023 End: 10-13-2023 ambulatory MING ESPINOZA Not Available Start: 09-01-2023 End: 09-01-2023 ambulatory MUNIRA PHAN [facility] Start: 08-26-2023 ambulatory MUNIRA PHAN [facility] Start: 07-30-2023 End: 07-30-2023 ambulatory Referral Self Facility:[facility] Start: 06-28-2023 ambulatory UMNIRA PHAN [facility] Start: 05-29-2023 ambulatory MUNIRA PHAN [facility] Start: 04-30-2023 ambulatory MUNIRA PHAN [facility] Start: 04-30-2023 Encounter for other preprocedural examination MUNIRA PHAN [facility] Start: 07-30-2022 End: 07-30-2022 ambulatory Yaneth Toni Other [facility] Other Start: 07-30-2022 Office outpatient vi sit 25 minutes Yaneth Toni [facility] Start: 07-29-2022 End: 07-30-2022 ambulatory YANETH TONI Facility: Start: 07-16-2022 End: 07-16-2022 ambulatory DO Ming Espinoza Work Phone: [facility] Work Phone: Start: 07-16-2022 End: 07-16-2022 Patient encounter procedure DO Ming Espinoza Work Phone: [facility] Start: 07-03-2022 End: 07-03-2022 ambulatory Estefania Vo Other [facility] Other Start: 07-03-2022 Follow-up encounter Estefania [facility] Start: 06-20-2022 End: 06-20-2022 ambulatory Jesus Parham Other [facility] Other Start: 06-20-2022 Telephone encounter Jesus Macedo [facility] Start: 06-20-2022 End: 06-20-2022 Emergency department patient visit DO Ming Espinoza Work Phone: [facility]-Emergency Room Start: 06-18-2022 End: 06-18-2022 Admission to same day surgery center DO Ming Espinoza Work Phone: [facility] [address] [place] Start: 06-14-2022 End: 06-14-2022 Patient encounter procedure DO Ming Espinoza Work Phone: [facility]-Pre-Surgical Testing Start: 06-06-2022 End: 06-07-[address] BRINDA HINOJOSA Facility:[facility] Start: 06-05-2022 End: 06-05-2022 Patient encounter procedure DO Ming Espinoza Work Phone: [facility]Pre-Surgical Testing Start: 06-03-2022 End: 06-03-2022 ambulatory Jesus Parham Other [facility] Other Start: 06-03-2022 Encounter for other preprocedural examination Jesus Dione [facility] V[facility] Surgery Start: 06-03-2022 Telephone encounter Jesus Hellen adler [facility] V[facility] Surgery Start: 05-30-2022 End: 05-30-2022 ambulatory Jesus Dione Other [facility] Other Start: 05-30-2022 [facility] visit new patient Jesus Montanez chalo [facility] Vascular Surgery Start: 05-30-2022 End: 05-30-2022 Patient encounter procedure DO Ming Espinoza Work Phone: [facility]-Ultrasound [facility] Start: 05-29-[address] [facility]A [facility] ity:[facility] Start: 05-02-2022 End: 05-02-2022 ambulatory Yaneth Toni Other [facility] Other Start: 05-02-2022 Office outpatient vi sit 25 minutes Yaneth Toni [facility] Start: 04-30-2022 End: 04-30-2022 ambulatory Dipika Stinson Other [facility] Other Start: 04-30-2022 Office outpatient vi sit 15 minutes Dipika Stinson [facility] Start: 04-30-2022 Encounter for preprocedural laboratory examination YANETH TONI [facility] Start: 04-29-2022 Encounter for other preprocedural examination DR DOCTOR ALEJANDRO [facility] Start: 04-27-2022 End: 04-28-2022 Encounter for other preprocedural examination DR MING ESPINOZA Facility:[facility] Start: 04-27-2022 End: 04-28-[address] MING ESPINOZA Facility:[facility] Start: 04-27-2022 End: 04-28-2022 Encounter for preprocedural laboratory examination YANETH TONI Facility:[facility] Start: 04-03-2022 Encounter for other specified special examinations DR DOCTOR ALEJANDRO [facility] Start: 04-01-2022 End: 04-01-2022 Admission to same day surgery center DO Ming Espinoza Work Phone: [facility]Dig[facility] Start: 03-29-2022 End: 03-30-[address] DOCTOR ALEJANDRO Facility:[facility] Start: 03-29-2022 End: 03-30-2022 Encounter for other specified special examinations DR DOCTOR ALEJANDRO Facility:[facility] Start: 03-28-2022 End: 03-28-2022 Patient encounter procedure DO Ming Espinoza Work Phone: [facility]-Pre-Surgical Testing Start: 02-26-2022 End: 02-26-2022 ambulatory Shabbir Jones Other [facility] Other Start: 02-26-2022 Telephone encounter Shabbir VELAZQUEZ [facility] [employer] Start: 12-06-2021 End: 12-06-2021 ambulatory Yaneth Toni Other [facility] Other Start: 12-06-2021 Office outpatient vi sit 25 minutes Yaneth Toni [facility] [place] Start: 12-03-2021 End: 12-04-2021 ambulatory YANETH TONI Facility:[facility] Start: 09-01-2021 End: 09-02-[address] MING ESPINOZA Facility:[facility] Start: 08-02-2019 End: 08-02-2019 Emergency department patient visit VIDAL MADRIGAL [facility] Start: 08-02-2019 End: 08-02-2019 Emergency department patient visit Vidal Madrigal Work Phone: [facility] ED Comment on above: Acute sepsis (HCC) ( Primary Dx); Acute cystitis without hematuria; Chronic renal failure, stage 4 (severe) (HCC); Polycystic kidney disease Procedures Date Procedure Procedure Detail Performing Clinician Start: 07-16-2022 Screening mammograph y of bilateral breasts DO Ming Discoverly Work Phone: Start: 06-18-2022 Arteriovenous fistulization DO JEDI MIND Phone: Start: 05-30-2022 Ultrasound (US) dopp ler flow mapping of vein of upper limb DO Ming URBANARA Phone: Start: 04-01-2022 Screening colonoscopy D O Ming Discoverly Work Phone: Start: 08-02-2019 Assay of lactate VIDAL KAITLIN Start: 08-02-2019 Assay of troponin quantitative VIDAL KAITLIN Start: 08-02-2019 Assay of lactate Vidal Madrigal Work Phone: Start: 08-02-2019 Assay of troponin quantitative Vidal Madrigal Work Phone: Start: 08-02-2019 Culture bacterial quanttative colony count urine VIDAL MADRIGAL Start: 08-02-2019 Radiologic exam ches t single [...] 03-16-2024 Bacteria identified in Urine by Culture [facility] Start: 03-15-2024 Bacteria identified in Urine by Culture [facility] Start: 11-06-2023 [facility] Start: 06-18-2022 [facility] Start: 06-18-2022 [facility] Start: 04-01-2022 [facility] Work Phone: Start: 06-06-2019 Influenza vaccination Flu vaccine (# 1) [place], [place] Start: 2015 Lipid screen Lipid screen [place], [place] Start: 1996 Cervical cancer screen Cervical canc er screen [place], [place] Start: 1994 DTaP/Tdap/Td vaccine (1 - Tdap) DTaP/Tdap/Td vaccine (1 - Tdap) [place] Start: 1990 HIV screen HIV screen [place], [place] Start: 1975 Creatinine monitoring Creatinine mon itoring [place] Start: 1975 Potassium monitoring Potassium monit [place]ing [place] End: 08-02-2019 Bacteria identified Cx Nom (U) Urine Culture Microbiology STAT One Time for 1 Occurrences starting 08/02/2019 until 08/02/2019 [place] Comment on above: One Time for 1 Occur rences starting 08/02/2019 until 08/02/2019 Bacteria identified Cx Nom (U) Urine Culture Microbiology STAT 08/02/2019 1:00 PM EDT [place] End: 08-02-2019 Culture blood #1 Culture blood #1 Microbiology STAT One Time for 1 Occurrences starting 08/02/2019 until 08/02/2019 [place] Comment on above: One Time for 1 Occur rences starting 08/02/2019 until 08/02/2019 End: 08-02-2019 Culture blood #2 Culture blood #2 Microbiology STAT One Time for 1 Occurrences starting 08/02/2019 until 08/02/2019 [place] Comment on above: One Time for 1 Occur rences starting 08/02/2019 until 08/02/2019 EKG 12 Lead EKG 12 Lead ECG STAT 08/02/2019 12:25 PM EDT [place] Homogenous nuclear A b pattern [Titer] in Serum [facility] Initiate Oxygen Ther apy Protocol Initiate Oxygen Therapy Protocol Respiratory Care Routine Daily until discontinued starting 08/02/2019, 2 completed [facility] [place], [place] Comment on above: Daily until disconti nued starting 08/02/2019, 2 completed End: 08-02-2019 Lactate, Sepsis Lactate, Sepsis Lab Timed Now Then Every 2hr for 2 Occurrences starting 08/02/2019 until 08/02/2019, 1 completed [facility] [place], [place] Comment on above: Now Then Every 2hr f or 2 Occurrences starting 08/02/2019 until 08/02/2019, 1 completed Nuclear Ab [Titer] i n Serum [facility] Patient Education [facility] Work Phone: Patient referral [facility] Work Phone: Potassium [Moles/vol ume] in Serum or Plasma [facility] Work Phone: Immunizations Immunization Date Immunization Notes Care Provider Chirag summers 10-13-2021 COVID-19 Ad26.COV2.S ([employer]) DO Ming Espinoza Work Phone: [facility] Payers Date Payer Category Payer Unknown [employer] [address] xxxxxxxxx 2015-Present [phone] [address] [place] [address] xxxxxxxxx [id number] 1975 Unknown [id number] [id number] 1975 Unknown [id number] 2.16.840.1.384047.3.579.2.593 1975 Unknown [id number] 2.16.840.1.410181.3.579.2.593 1975 Unknown [id number] 2.16.840.1.717096.3.579.2.593 1975 Unknown [id number] 2.16.840.1.091990.3.579.2.593 1975 Unknown [id number] 2.16.840.1.717020.3.579.2.593 1975 Unknown [id number] 2.16.840.1.293024.3.579.2.593 1975 Unknown [id number] 2.16.840.1.217108.3.579.2.593 1975 Unknown [id number] 2.16.840.1.271772.3.579.2.593 1975 Unknown [id number] 2.16.840.1.276846.3.579.2.125 9 1975 Unknown [id number] 2.16.840.1.927817.3.579.2.125 9 1975 Unknown [id number] 2.16.840.1.530568.3.579.2.125 9 1975 Unknown [id number] 2.16.840.1.961141.3.579.2.125 9 1975 Unknown [id number] 2.16.840.1.109163.3.579.2.125 9 1959 Self-pay [id number] 1959 Unknown [id number] 1959 Unknown [id number] 2.16.840.1.153761.19 Unknown [id number] 2.16840.1.958651.19 Unknown [id number] 2.16840.1.726027.3.579.2.531 Unknown [id number] 2.16.840.1.930976.3.579.2.531 Unknown [id number] 2.16840.1.566798.3.579.2.531 Social History Date Type Detail Facility Tobacco smoking status HIIS Unknown if ever smoked [facility] [place], [employer] Sex Assigned At Not on file [facility] [employer] Sex Assigned At Sex Assigned At Bir [facility] Other Start: 06-05-2022 End: 06-20-2022 Tobacco smoking status NHIS Never smoked tobacco (finding) [facility] Start: 1975 Sex Assigned At Female F [facility] Goals Date Patient Goal Desired Activity /State Clinical Notes 05-17-2020 to 04-27-2024 Note Date & Type Note Facility 04-27-2024 Note 04/27/24 Chief Complaint Patient presents with Kidney Follow-up Pt states she keeps getting a continuous UTI has been going on for months, has been on many antibiotics. Last Friday pt did a urine and it came back clean. Pt states previous urine sample came back with E.Coli at family doctor. Pt wanted to know if potassium can be decreased to 10 mg because they are smaller pills. PCP: Ming Espinoza MD Txp Referring: Yaneth Muñoz [facility] Pharmacy: [facility] [address] [place] [address] [place] [address] [facility] [address] [facility]/pharmacy #[id number] [place] [address] - [address] [place] [address] [address] OF [address] [address] [facility] SPECIALTY [address] [address] Subjective Visit Vitals BP 121/60 (BP Location: Right arm, Patient Position: Sitting, BP Cuff Size: Adult) Pulse 92 Temp 36.8 ???C (98.2 ???F) (Oral) Resp 16 Ht 1.549 m (5' 1 ) Wt 78.7 kg (173 lb 9.6 oz) BMI 32.80 kg/m??? OB Status Hysterectomy Smoking Status Never BSA 1.84 m??? Allergies Allergen Reactions Allopurinol Effexor [Venlafaxine] Hives Venlafaxine Hcl Other reaction(s): bad side effect Medication Documentation Review Audit Reviewed by Lina Cox LPN (Licensed Nurse) on 04/27/24 at 1407 Medication Order Taking? Sig Documenting Provider Last Dose Status amLODIPine (Norvasc) 10 mg tablet [id number] Yes Take 1 tablet (10 mg) by mouth in the morning. Aguila Parrish MD Taking Active bumetanide (Bumex) 2 mg tablet [id number] Take 1 tablet (2 mg) by mouth in the morning. Patient not taking: Reported on 11/08/2022 Aguila Parrish MD 10/25/22 2359 docusate sodium (Colace) 100 mg capsule [id number] Take 1 capsule (100 mg) by mouth in the morning and at bedtime. Patient not taking: Reported on 09/01/2023 Paty Ansari, NORMA Active DULoxetine (Cymbalta) [address] capsule [id number] Yes Take 1 capsule every day by oral route. Historical ProviderMD Taking Active Envarsus XR 1 mg tablet ER [id number] Yes TAKE 3 TABLETS BY MOUTH ONCE DAILY IN THE MORNING. TAKE ALONG WITH 0.75 MG TABLETS DIRECTED FOR TOTAL DOSE UP TO 4.5 MG PER DAY. Patient taking differently: Take 2 mg by mouth in the morning. Aguila Parrish MD Taking Flag for Review famotidine (Pepcid) 20 mg tablet [id number] Yes Take 1 tablet (20 mg) by mouth in the morning. Patient taking differently: Take 20 mg by mouth if needed. Aguila Parrish MD Taking Active febuxostat (Uloric) 40 mg tablet [id number] Take 0.5 tablets every day by oral route. Historical ProviderMD Active ferrous sulfate 325 (65 Fe) MG tablet [id number] Yes Take 65 mg by mouth every other day. Historical ProviderMD Taking Active fish oil (Seattle-3) 60-90-500 mg capsule [id number] Take 2 capsules (1,000 mg) by mouth in the morning and at bedtime. Patient not taking: Reported on 12/23/2023 Sujit Monterroso MD Active Levemir FlexPen 100 unit/mL (3 mL) pen [id number] INJECT 12 UNITS SUBCUTANEOUS IN AM 30 DAYS Historical ProviderMD Active magnesium oxide (Mag-Ox) 400 mg (241.3 mg magnesium) tablet [id number] Yes TAKE 2 TABLETS BY MOUTH IN THE MORNING AND 2 TABLETS AT BEDTIME Nelson Davies MD Taking Active mycophenolate (Myfortic) 180 mg EC tablet [id number] Yes Take 4 tablets (720 mg) by mouth in the morning and at bedtime. Aguila Parrish MD Taking Active oxyCODONE-acetaminophen (Percocet) 5-325 mg tablet [id number] Take 1 tablet by mouth every 6 (six) hours if needed for severe pain (8-10 pain score) for up to 20 doses. Patient not taking: Reported on 09/01/2023 Paty Ansari NP Active potassium chloride CR (Klor-Con M20) 20 mEq ER tablet [id number] Yes Take 1 tablet (20 mEq) by mouth in the morning. Do not crush or chew. Andrea Elizondo MD Taking Active pravastatin (Pravachol) 40 mg tablet [id number] Yes Take 1 tablet (40 mg) by mouth at bedtime. Patient taking differently: Take 40 mg by mouth at bedtime. 40 mg 4 times a week. Fri Sat Kevin Raymond MD Taking Active semaglutide (Ozempic) 2 mg/dose (8 mg/3 mL) pen injector [id number] Yes Inject 2 mg under the skin every 7 (seven) days. Historical ProviderMD Taking Active tacrolimus ER (Envarsus XR) 0.75 mg tablet ER [id number] Yes Take 2 tablets (1.5 mg) by mouth in the morning. Script total 4.5 mg daily Priyanka Villanueva MD Taking Active tacrolimus ER (Envarsus XR) 1 mg tablet ER [id number] Yes Take 3 tablets (3 mg) by mouth in the morning. Script total 4.5 mg daily Priyanka Villanueva MD Taking Active Immunization History Administered Date(s) Administered Ainsley Sars-Cov-2 Vaccination 10/13/2021 Patient Active Problem List Diagnosis Anxiety COVID-19 Depressive disorder Gastroesophageal reflux disease Gout Primary hyper (more content not included)... [facility] 04-23-2024 Note Patient TAC level, 1 0.5, reviewed with Dr. Villanueva. Patient reported taking 2mg daily, new orders to decrease to 1.5mg daily. Patient currently does not have 0.75 mg tablets. Rx sent. Patient will continue to take 2 mg tableys until she receives 0.75 mg tablets, at which point she will decrease to 1.5 mg daily. Patient to repeat TAC level one week after making change in dose. Patient verbalized understanding. [facility] 04-21-2024 Note Patient called, stat es she has had frequent UTI's that her local PCP has been treating. E-coli in urine. Has been on Bactrim, Macrobid and Keflex in the past. Still has burning with urination, denies fevers, recent urine culture done at outside lab shows <10,000 gram positive organism isolated, no susceptibility. Patient to get labs done in morning, added order for repeat urine culture to be done, voiced understanding. [facility] 03-25-2024 Note Patient called, stat es PCP stopped Bactrim and started Keflex for E-coli in urine. On 500 mg tid x 7 days. Advised to hydrate well and get labs, repeat urine culture once completed. Voiced understanding. [facility] 03-16-2024 Note Patient called benigno borrero she is currently being treated for a UTI with bactrim BID for 7 days. [facility] 02-25-2024 Note Received a call from the patient regarding the non-compliant lab letter. Explained to the patient that we had gotten some labs on her but not a CMP or BMP. Patient stated that she has always gotten her labs drawn at [facility]. She will be getting labs drawn tomorrow and she will make sure that the draw the correct labs and have the results sent to us. [facility] 12-23-2023 Note 12/23/23 Chief Complaint Patient presents with Kidney Follow-up Pt has questions about her lab work. PCP: Ming Espinoza MD Txp Referring: Yaneth Muñoz Preferred Pharmacy: [facility] - [place], [place] - [address] [place] [address] [place] [address] [facility] [address] [facility]/pharmacy #[id number] - [place], [place] - [address] [facility] [address] [address] [facility] [place] [address] [place] [address] Subjective Visit Vitals BP 116/73 (BP Location: [...] Review Audit Reviewed by Trupti Sanchez MA (Mason Liner) on 12/23/23 at 1430 Medication Order Taking? Sig Documenting Provider Last Dose Status amLODIPine (Norvasc) 10 mg tablet [id number] Take 1 tablet (10 mg) by mouth in the morning. Aguila Parrish MD 10/24/23 2359 bumetanide (Bumex) 2 mg tablet [id number] Take 1 tablet (2 mg) by mouth in the morning. Patient not taking: Reported on 11/08/2022 Aguila Parrish MD 10/25/22 2359 docusate sodium (Colace) 100 mg capsule [id number] Take 1 capsule (100 mg) by mouth in the morning and at bedtime. Patient not taking: Reported on 09/01/2023 Paty Ansari, NORMA Active DULoxetine (Cymbalta) [address] capsule [id number] Yes Take 1 capsule every day by oral route. Historical Provider, Taking Active Envarsus XR 1 mg tablet ER [id number] Yes TAKE 3 TABLETS BY MOUTH ONCE DAILY IN THE MORNING. TAKE ALONG WITH 0.75 MG TABLETS DIRECTED FOR TOTAL DOSE UP TO 4.5 MG PER DAY. Patient taking differently: Take 2 mg by mouth in the morning. Aguila Parrish MD Taking Active famotidine (Pepcid) 20 mg tablet [id number] Yes Take 1 tablet (20 mg) by mouth in the morning. Patient taking differently: Take 20 mg by mouth if needed. Aguila Parrish MD Taking Active febuxostat (Uloric) 40 mg tablet [id number] Take 0.5 tablets every day by oral route. Historical Provider, Active ferrous sulfate 325 (65 Fe) MG tablet [id number] No Take 65 mg by mouth every other day. Historical ProviderMD Not Taking Active fish oil (Seattle-3) 60-90-500 mg capsule [id number] No Take 2 capsules (1,000 mg) by mouth in the morning and at bedtime. Patient not taking: Reported on 12/23/2023 Sujit Monterroso MD Not Taking Active Levemir FlexPen 100 unit/mL (3 mL) pen [id number] No INJECT 12 UNITS SUBCUTANEOUS IN AM 30 DAYS Historical Provider, Not Taking Flag for Review magnesium oxide (Mag-Ox) 400 mg (241.3 mg magnesium) tablet [id number] Yes TAKE 2 TABLETS BY MOUTH IN THE MORNING AND 2 TABLETS AT BEDTIME Nelson Davies MD Taking Active mycophenolate (Myfortic) 180 mg EC tablet [id number] Yes Take 4 tablets (720 mg) by mouth in the morning and at bedtime. Aguila Parrish MD Taking Active oxyCODONE-acetaminophen (Percocet) 5-325 mg tablet [id number] Take 1 tablet by mouth every 6 (six) hours if needed for severe pain (8-10 pain score) for up to 20 doses. Patient not taking: Reported on 09/01/2023 Paty Ansari NP Active potassium chloride CR (Klor-Con M20) 20 mEq ER tablet [id number] Yes Take 1 tablet (20 mEq) by mouth in the morning. Do not crush or chew. Andrea Elizondo MD Taking Active pravastatin (Pravachol) 40 mg tablet [id number] Yes Take 1 tablet (40 mg) by [...] for aftercare following kidney transplant Immunosuppressed status (CMS/HCC) Hyperuricemia Metabolic acidosis Bilateral lower extremity edema Hypokalemia Immunosuppressive management encounter following kidney transplant Dysuria Hypomagnesemia Electrolyte imbalance History of gout Myopathy, unspecified Dyslipidemia Hyperglycemia Family History Problem Relation Name Age of Onset Fibromyalgia Mother Heart disease Father Hypertension Sister Polycystic kidney disease Sister Hypertension Brother Polycystic kidney disease Brother Social History Tobacco Use Smoking status: Never Smokeless tobacco: Philarmani (more content not included)... [facility] 10-02-2023 Note Per phone order Tyler sorto MD, increase Kdur from 10meq every day to 20meq every day due to K 3.2 on 09/26/23. Pt informed and verbalized understanding. Amiloride removed from her MAR as she reported in July she is not taking and reconfirmed today. [facility] 09-01-2023 Note ---- Attestation signed by Sujit Monterroso MD at 09/02/2023 9:30 AM By using [...] an additional personal documentation from me. Sujit Monterroso MD, PhD ---- Nephrology Transplant Clinic Patient [...] making adequate urine output with no proteinuria. Chilkat kidneys with adult polycystic kidney disease BK [...] for dysphoric moo (more content not included)... [facility] 08-06-2023 Note For K-level of 3.4, left VM to start Kdur [address] Dolores anderson. [facility] 07-24-2023 Note Per Shelly elliott 76Dari BM P specimen not available. Notified Dolores FIERRO by phone and per his phone order, will repeat this labs in 7-10 days and pt was notified by phone and she verbalized understanding. Pt needs copy of her standing lab order. Will prepare for her pickup. [facility] 07-24-2023 Note Per phone order Minerva morel MD, discontinue amiloride due to side effects and recheck her CMP in 2 weeks as serum K may drop. This coordinator spoke with Ramila victor in lab to complete CMP today. DSA reentered for next lab draw. Pt notified by phone and verbalized understanding. [facility] 07-24-2023 Note PT reports not lindsay ating [...] being around persons known to be ill. [facility] 07-17-2023 Note Reviewed todays labs in person [...] day dosing and she acknowledged. Tac pending. [facility] 07-16-2023 Note Reviewed by phone wi dahlia Monterroso MD pt input about her medication changes by PCP including stopping Amiloride. agreed to reschedule her 07/18 RV and review labs tomorrow by phone. Clinic [place] team informed to reschedule pt. [facility] 07-16-2023 Note Pt reports stopping Amiloride 5mg every day and starting Potassium 20meq every day & Ozempic 1mg subcutaneous weekly per PCP with improved glucose control. Monitors BP and no concerns. She will present to lab tomorrow for testing. Pt agrees and verbalized understanding. Pt to located her standing lab order for use @ [facility] prn. [facility] 07-10-2023 Note Returned 0816 voicem ail to pt asking about dental work antibiotic prophylaxis. Confirmed with pt no allergies to antibiotics and advised to take Amoxicillin 2 grams PO 30-60 minutes prior to dental work or cleanings and she verbalized understanding. PT will contact her dentist for RX she stated. [facility] 06-17-2023 Note Returned patients ca ll regarding local pharmacy informing her of a DDI Recommended to patient to take Crestor in the evening and Magnesium during the day (or at least 2 hours apart) to avoid decreased absorption due to DDI Liam Viveros PharmD Candidate 2023 [facility] 06-15-2023 Note 06/15/23 1100 Pt called and said was out of myfortic, mail order did not arrive. Pt takes myfortic 720 twice a day. Pt chart reviewed and dose confirmed. Prescription called in to [facility] pharmacy. 5 days supply, 40 tablets. Myfortic 180 tablets, take 720 mg - 4 tablets, twice a day. Pt [facility]. Pt verbalized understanding. [facility] 04-30-2023 Note Reviewed Tac Lvl 9.[address] Monterroso, per verbal order one time elevation, will wait for next lab draw if it stays elevated will decrease Envarsus dosage. Reached out to patient via phone and told her to remain on current Envarsus dose and we will recheck her level with the next lab draw, patient confirms she is currently taking Envarsus 2 mg. [facility] 07-30-2022 Evaluation note Encounter Date Diagnosis Assessment [...] advanced CKD due to polycystic kidney disease. 25 Oct, 2022 Gout (ICD-10 - M10.9) She has gout and follows with a wrapper off. She takes Urolic and denies any recent gout flare Jul, Metabolic acidemia, unspecified (ICD-10 - P19.9) She has metabolic acidosis due to the advanced CKD. Continue oral Sodium Bicarbonate [facility] 09-28-2022 Evaluation note* Encounter Date Diagnosis [...] disease, unspecified CKD stage (ICD-10 - N18.9) [facility]* Encounter Date Diagnosis Assessment Notes Treatment Notes Treatment Clinical Notes May, Pre-op testing (ICD-10 - Z01.818) [facility] 08-25-2022 Evaluation note* Encounter Date Diagnosis [...] will schedule this in the near future. [facility] 07-28-2022 Evaluation note* Encounter Date Diagnosis [...] explained to her the potential need of TELEPHONE OPERATOR RECEPTIONIST in future. I discussed with her different options of TELEPHONE OPERATOR RECEPTIONIST including PD, HTN renal transplant. I provide [...] stephens s gout and follows with a wrapper off. She takes Urolic and denies any recent gout flare [facility] Other 07-26-2022 Evaluation note* Encounter Date Diagnosis [...] care provider if no improvement of symptoms. [facility] Other 05-24-2022 Evaluation note* Encounter Date Diagnosis Assessment Notes Treatment Notes Treatment Clinical Notes February, Screening for colon cancer (ICD-10 - Z12.11) [facility] 03-03-2022 Evaluation note* Encounter Date Diagnosis [...] explained to her the potential need of TELEPHONE OPERATOR RECEPTIONIST in future. I discussed with her different options of TELEPHONE OPERATOR RECEPTIONIST including PD, HTN renal transplant. I provide [...] She has gout and follows with a wrapper off. She takes Urolic and denies any recent gout flare [facility] Other 06-25-2021 NotePatient Outreach (NEPHMN) MANDEEP PURI ([id number]) 1975 F Date Time Provider Department 03/30/21 PERRI BARRETT During your visit today, we recorded the following information about you: Allergies As of Date: 03/30/2021 Noted Allergy Reaction ALLOPURINOL 08/02/2019 4 - Hives Date Reviewed: 03/30/2021 Reviewed by: Perri Barrett MD - Fully Assessed Visit Diagnosis:Screening for genitourinary condition [Z13.89] Order(s):URINALYSIS, DIPSTICK ONLY [SQUA] Order #: [id number]. #:[id number] Prescriptions as of 03/30/2021 Sig: DULOXETINE 60 [...] dominant polycystic kidney dis*03/30/2021 Encounter Status:Closed by enGene on 04/02/21[facility] 03-30-2021 NoteHNO ID: [id number] Author: Perri Barrett MD Service: ? Author Type: Physician Type: Progress Notes Filed: 03/30/2021 10:25 AM Note Text: Mrs. 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 [facility] general Narrative - Reported * Type Description Date Medical History HTN (hypertension) Medical History Anxiety Medical History polycystic kidneys Medical History COVID 05-17-2020 Surgical History C section Surgical History BREAST REDUCTION Hospitalization History child Hospitalization History KIDNEY INFECTION 07/2019 Hospitalization History COVID AND DEHYDRATION [facility] 08-12-2020 History general Narrative - Reported* Type Description Date Medical History HTN (hypertension) Medical History Anxiety Medical History polycystic kidneys Medical History COVID 05-17-2020 Medical History end stage renal disease Surgical History C section Surgical History BREAST REDUCTION Surgical History colonoscopy 04/01/2022 Surgical History wisdom teeth 03/24/2022 Hospitalization History child Hospitalization History KIDNEY INFECTION 07/2019 Hospitalization History COVID AND DEHYDRATION [facility] Other 08-12-2020 History general Narrative - Reported* [...] INFECTION 07/2019 Hospitalization History COVID AND DEHYDRATION [facility] Other 08-12-2020 History general Narrative - Reported* [...] INFECTION 07/2019 Hospitalization History COVID AND DEHYDRATION [employer] [facility] Other Evaluation noteNo assessment information available [facility] Work Phone: Evaluation noteNo InformationNort Shook Other Evaluation note* Diagnosis Onset Date Resolution Status Dysuria acute UTI (urinary tract infection) acute [facility] Work Phone: Assessments Diagnosis Acute sepsis (HCC)- Primary Acute cystitis without hematuria Acute cystitis Chronic renal failure, stage 4 (severe) (HCC) Polycystic kidney disease Polycystic kidney, unspecified type Advance Directives No Advanced Directives Records FoundDocuments on File Type Date Recorded Patient [employer] Faculty Member Expl anation Advance Directives and Living Will Power of 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 Advance Directive Response Recorded Date/ [...] and content) DATE CREATED AUTHOR 08/04/2019 Marielena jonas DATE CREATED AUTHOR AUTHOR'S ORGANIZ ATION 04/28/2020 [facility] DATE CREATED AUTHOR AUTHOR'S ORGANIZ ATION 09/12/2020 [facility] DATE CREATED AUTHOR AUTHOR'S ORGANIZ ATION 11/07/2021 [facility] DATE CREATED AUTHOR AUTHOR'S ORGANIZ ATION 02/27/2022 [facility] DATE CREATED AUTHOR AUTHOR'S ORGANIZ ATION 08/04/2022 [facility] DATE CREATED AUTHOR AUTHOR'S ORGANIZ ATION 03/22/2024 [facility] DATE CREATED AUTHOR AUTHOR'S ORGANIZ ATION 04/21/2024 [facility] EPIC DATE CREATED AUTHOR AUTHOR'S ORGANIZ ATION 04/28/2024 [facility] Care Teams (unrecognized sec tion and [...] BE BASED ON THE PRIMARY CLINICAL RECORDS. [facility]. provides no warranty or guarantee of the accuracy or completeness of information in this document.
[2024-06-02 08:08] LABS: Basophils Percent Auto 0.5 % (0.2-2.0); Eosinophils Absolute Auto 0.3 10^3/uL (0.0-0.7); Hematocrit 36.3 % (36.0-48.0); Hemoglobin 11.8 g/dL (12.0-16.0); Immature Granulocytes Abs Auto 0.04 10^3/uL (0.00-0.03); Immature Granulocytes Pct Auto 0.5 % (0.0-0.5); Lymphocytes Absolute Auto 1.2 10^3/uL (1.2-3.8); Mean Corpuscular HGB Conc 32.5 g/dL (29.9-35.2); Mean Platelet Volume 8.6 fL (9.5-13.5); Monocytes Absolute Auto 0.5 10^3/uL (0.3-0.8); Monocytes Percent Auto 5.7 % (1.7-12.0); Neutrophils Absolute Auto 6.4 10^3/uL (1.4-6.5); Neutrophils Percent Auto 76.3 % (43.0-75.0); Platelet Count 331 10^3/uL (150-450); Red Blood Count 4.22 10^6/uL (4.20-5.40); Red Cell Distribution Width 15.9 % (11.0-15.0); White Blood Count 8.4 10^3/uL (4.0-11.0)
[2024-06-02 08:18] LABS: Alanine Aminotransferase 19 U/L (14-59); Albumin Globulin Ratio 0.9; Albumin Level 3.6 g/dL (3.4-5.0); Alkaline Phosphatase 86 U/L (46-116); Aspartate Amino Transferase 14 U/L (15-37); BUN Creatinine Ratio 11.7; Bilirubin Direct 0.1 mg/dL (0.0-0.2); Bilirubin Total 0.4 mg/dL (0.2-1.0); Calcium 9.1 mg/dL (8.5-10.1); Chloride 102 mmol/L (98-107); Chol HDL Ratio 3.6; Cholesterol 191 mg/dL (<=200); Estimated GFR (African America 58 (>=60); Estimated GFR (Non-African Ame 48 (>=60); Glucose 103 mg/dL (74-106); HDL Cholesterol 53 mg/dL (40-60); LDL Cholesterol Calculated 111.6 mg/dL; Magnesium 1.5 mg/dL (1.8-2.4); Phosphorus 3.2 mg/dL (2.6-4.7); Potassium 3.3 mmol/L (3.5-5.1); Sodium 138 mmol/L (136-145); Total Protein 7.6 g/dL (6.4-8.2); Triglycerides 132 mg/dL (<=150); Uric Acid 4.2 mg/dL (2.6-6.0); VLDL CHOLESTEROL 26.4 mg/dL
[2024-06-02 08:24] LABS: Anion Gap 12.3
[2024-06-02 10:45] LABS: Estimated Average Glucose 100 mg/dL; Glycohemoglobin A1C 5.1 % (4.5-6.2)
[2024-06-04 14:10] LABS: BKV DNA, Quant PCR, Plasma Negative (Negative)
== END 2024-06-02 07:26 | disposition home or self-care (01) ==
LOC: LAB 07:25
PROVIDERS: PCP Internal Medicine; Visit Provider Internal Medicine Nephrology
DX: R73.01 Impaired fasting glucose (principal); Z94.0 Kidney transplant status
CPT/HCPCS: 36415; 80053; 80061; 80197; 82248; 83036; 83735; 84100; 84550; 85025; 87799

== ENCOUNTER 2024-06-10 13:33 | Outpatient (OUT) | payer OTHER, SELFPAY | END 2024-06-10 13:34 | disposition home or self-care (01) | LOC: LAB 13:33 | PROVIDERS: PCP Internal Medicine | DX: R30.0 Dysuria (principal); Z87.440 Personal history of urinary (tract) infections; Z94.0 Kidney transplant status | CPT/HCPCS: 87086; 87150; 87186 ==

== ENCOUNTER 2024-06-29 08:44 | Outpatient (OUT) | payer OTHER, SELFPAY ==
--- OUTSIDE RECORDS SUMMARY | 2024-06-29 08:59 | XMS_ITS | CCD ---
Author Organization [facility] Care Team Providers Care Drafting Clerk Name Role Phone Ming Espinoza Primary Care Provider VIDAL MADRIGAL Attending Unavailable MING ESPINOZA Primary Care Unavailable Toni, Yaneth Unavailable Shabbir Jones Unavailable Dipika Stinson Unavailable Jesus Parham Unavailable DO Ming Espinoza Primary Care Provider MD Shabbir Jones Attending Provider [phone] MD Yaneth Muñoz Attending Provider [phone] MD Jesus Parham Attending Provider [phone] Estefania Vo Unavailable DO Ming Espinoza Primary Care Provider EB Forman Emergency Provider [phone] DO Blake Hinojosa Attending Provider ANGELAC, DR [...] Unavailable DO Ming Espinoza Primary Care Provider [phone] MD Perri Ceja Attending Provider [phone] CECILIA Edwards Attending Provider [phone] Self, Referral Admitting Unavailable Self, Referral Attending Unavailable Ming Espinoza Primary Care Unavailable Blake Hinojosa Referring Unavailable Perri Ceja Admitting Unavailable Perri Ceja Attending Unavailable Ming Espinoza Primary Care Unavailable Jerry, Andreia Xiomara Admitting Unavailable Jerry, Andreia Solano Attending Unavailable MING ESPINOZA Attending Unavailable MING ESPINOZA Referring Unavailable MING ESPINOZA Referring Unavailable CARLOS ENRIQUE RICHARD Attending Unavailable MING ESPINOZA Attending Unavailable MUNIRA PHAN Referring Unavailable BLAKE HINOJOSA Attending Unavailable BLAKE HINOJOSA Referring Unavailable MUNIRA PHAN Attending Unavailable MUNIRA PHAN Attending Unavailable SREE BLANCHARD Attending Unavailable SUJIT BERNAL Referring Unavailable Allergies Allergy Classification Reported Allergen(s) Allergy Type Date of Onset Reaction(s) Facility (13 sources) Allopurinol; Translations: [ALLOPURINOL] Drug Allergy 9 [place] (8 sources) venlafaxine; Translations: [venlafaxine] Drug Allergy 2 Rash, Rash, [facility] (1 source) Allopurinol Drug Allergy 4 [facility] Repository (1 source) venlafaxine; Translations: [VENLAFAXINE HCL] Drug Allergy 1 [facility] Repository Medications Current Medications Medication Drug [...] acid 7540 MG / polyethylene glycol 3350 37627 MG / potassium chloride 1200 MG / sodium ascorbate 93954 MG / sodium chloride 3200 MG Powder for Oral Solution) / 1 (polyethylene glycol 3350 929372 MG / potassium chloride 1000 MG / sodium chloride 2000 MG / sodium sulfate 9000 MG Powder for Oral Solution) } Pack [Plenvu] (1 source) Osmotic Laxative, Vitamin C Start: 02-26-2022 Plenvu 140 GM dose 1 pouch at 4pm, dose 2 pouch A & B at 11pm Orally twice a day for 1 days BIN:[id number] PCN: [id number] GROUP:[id number] ID:[id number] February, Active cetirizine hydrochloride 10 mg oral [...] PO Daily August 02, 2019 12:00am calcitriol 0.65557 mg oral capsule (6 sources) Vitamin D3 Analog Start: 01-20-2019 End: 08-02-2019 Calcitriol (Rocaltrol) 0.25 mcg Capsule Discontinued 0.25 MCG PO MoWeFr@0900 January 20, 2019 12:00am August 02, 2019 [...] D2 Compound Start: 01-20-2019 End: 08-02-2019 take 20749 [IU] by mouth every month Ergocalciferol (Vitamin D2) Discontinued 52637 UNIT PO every month January 20, 2019 [...] Translations: [Chronic renal failure, stage 4 (severe) ([facility])] Chronic Acute and unspecified renal [...] Translations: [Iron deficiency anemia, unspecified] 03-15-2024 Episodic Diabetes mellitus without complication (2 sources) Impaired fasting glucose; Translations: [Impaired fasting glucose] Onset: 4 Episodic Disorders of lipid metabolism (2 sources) [...] Classification Problem Date Documented Da te Episodic/Chronic Fluid and electrolyte disorders (3 sources) Acidosis; Translations: [ACIDOSIS] Onset: 12-06-2021 Resolved: 05-02-2022 Episodic Other aftercare (2 sources) 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; Translations: [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] Onset: 06-28-2023 Episodic Other [...] Value Interpretation Reference Range Facility Orders Onlyon 06-15-2024 Orders Only [id number] Antonio Puri sarath 1975 F Date Provider Department Center 06/15/2024 MUNIRA BAGLEYP None Family History Problem Relation Age of Onset Fibromyalgia Mother Heart disease Father Hypertension Sister Polycystic kidney disease Sister Hypertension Brother Polycystic kidney disease Brother Family Status - Relation Status Age at Mother Father Sister Brother Normal [facility] Consulton 05-19-2024 Consult [id number] Antonio Puri sarath 1975 F Date Provider Department Center 05/19/2024 SREE BOOKER [facility] URO [place] Family History Problem Relation Age of Onset Fibromyalgia Mother Heart disease Father Hypertension Sister Polycystic kidney disease Sister Hypertension Brother Polycystic kidney disease Brother Family Status - Relation Status Age at Mother Father Sister Brother Level of Service:56537 MS OFFICE/OUTPATIENT ESTABLISHED MOD MDM 30 MIN Reason for Visit and Comments: UTI [[id number]] - Recurrent chronic ecoli , has fibromyalgia and when that flairs up the UTI happens Normal [facility] CREATININE, URINE, RANDOMon 04-27-2024 Creatinine (U) [Mass/Vol] 142.0 mg/dL Normal 26-299 [facility] Comment on above: Performed By: #### L [id number] #### [facility] ([facility]) [address] [place] [address] Follow-Upon 04-27-2024 Follow-Up [id number] KhushiAntonio clemens 1975 F Date Provider Department Center 04/27/2024 124MUNIRA NELSON TXCaridad None Family History Problem Relation Age of Onset Fibromyalgia Mother Heart disease Father Hypertension Sister Polycystic kidney disease Sister Hypertension Brother Polycystic kidney disease Brother Family Status - Relation Status Age at Mother Father Sister Brother Level of Service:37788 MS OFFICE/OUTPATIENT ESTABLISHED MOD MDM 30 MIN Reason for Visit and Comments: Kidney Follow-up [] - Pt states she keeps getting a continuous UTI has been going on for months, has been on many antibiotics. Last Ori pt did a urine and it came back clean. Pt states previous urine sample came back with E.Coli at family doctor. Pt wanted to know if potassium can be decreased to 10 mg because they are smaller pills. Normal [facility] PROTEIN, URINE, RANDOMon Protein (U) [Mass/Vol] 51.7 mg/dL [facility] Comment on above: Result Comment: Ther e are no established reference values for random urine specimens. Performed By: #### L [id number] #### [facility] ([facility]) [address] [place] [address] URINALYSISon 04-27-2024 BILIRUBIN, TOTAL PRESENCE IN URINE Negative Normal Negative [facility] Comment on above: Performed By: #### L [id number] #### [facility] ([facility]) [address] [place] [address] Clarity (U) Slightly Cloudy Abnormal Clear [facility] Comment on above: Performed By: #### L [id number] #### [facility] ([facility]) [address] [place] [address] Color (U) Yellow Normal Yellow [facility] Comment on above: Performed By: #### L [id number] #### [facility] ([facility]) [address] [place] [address] Glucose (U) [Mass/Vol] Negative Normal Negative [facility] Comment on above: Performed By: #### L [id number] #### [facility] ([facility]) [address] [place] [address] HEMOGLOBIN PRESENCE IN URINE Small Abnormal Negative [facility] Comment on above: Performed By: #### L [id number] #### [facility] ([facility]) [address] [place] [address] Ketones Ql (U) Negative Normal Negative [facility] Comment on above: Performed By: #### L [id number] #### [facility] ([facility]) [address] [place] [address] LEUKOCYTE ESTERASE PRESENCE IN URINE BY TEST STRIP Large Abnormal Negative [facility] Comment on above: Performed By: #### L [id number] #### [facility] ([facility]) [address] [place] [address] NITRITE PRESENCE IN URINE Positive Abnormal Negative [facility] Comment on above: Performed By: #### L [id number] #### [facility] ([facility]) [address] [place] [address] pH (U) 6.0 [pH] Normal 5.0-8.0 [facility] Comment on above: Performed By: #### L [id number] #### [facility] ([facility]) [address] [place] [address] Protein (U) [Mass/Vol] 100 mg/dL Abnormal Negative [facility] Comment on above: Performed By: #### L [id number] #### [facility] ([facility]) [address] [place] [address] Specific gravity (U) [Rel density] 1.012 Low 1.015-1.020 [facility] Comment on above: Performed By: #### L [id number] #### [facility] ([facility]) [address] [place] [address] URINALYSIS MICROSCOPICon CASTS IN URINE Normal [facility] Comment on above: Performed By: #### L [id number] #### [facility] ([facility]) [address] [place] [address] CRYSTALS IN URINE Normal [facility] Comment on above: Performed By: #### L [id number] #### [facility] ([facility]) [address] [place] [address] MUCUS (#/HPF) IN URINE SEDIMENT Occasional Normal None Seen, Occasional, Few [facility] Comment on above: Performed By: #### L [id number] #### [facility] [address] [place] [address] RBC (#/HPF) IN URINE SEDIMENT 11-20 Abnormal None Seen [facility] Comment on above: Performed By: #### L [id number] #### [facility] ([facility]) [address] [place] [address] SQUAMOUS EPITHELIAL CELLS (#/HPF) IN URINE SEDIMENT Moderate Abnormal None Seen, Occasional [facility] Comment on above: Performed By: #### L [id number] #### [facility] [address] [place] [address] WBC (LEUKOCYTE) (#/HPF) IN URINE SEDIMENT >100 Abnormal None Seen [facility] Comment on above: Performed By: #### L [id number] #### [facility] ([facility] [address] [place] [address] URINE CULTURE, ROUTINEon Bacteria identified Cx Nom (U) ESCHERICHIA COLI Abnormal [facility] Comment on above: Result Comment: >100 ,000 CFU/Ml Escherichia coli Susceptibility to Follow Performed By: #### L [id number] #### [facility] ([facility] [address] [place] [address] BILIRUBIN, DIRECTon 04-23-20 24 Magnesium [Mass/Vol] 0.0 mg/dL Normal 0-0.2 [facility] Comment on above: Performed By: #### L [id number] #### [facility] ([facility]) [address] [place] [address] CBC WITH AUTO DIFFERENTIALon 04-23-2024 Basophils (Bld) [#/Vol] 0.05 10*3/uL Normal 0.00-0.20 [facility] Comment on above: Performed By: #### L [id number] #### [facility] ([facility]) [address] [facility] [place] [address] Basophils/100 WBC (Bld) 0.6 % Normal 0.0-1.0 [facility] Comment on above: Performed By: #### L [id number] #### [facility] ([facility]) [address] [facility] [place] [address] Eosinophils (Bld) [#/Vol] 0.17 10*3/uL Normal 0.00-0.50 [facility] Comment on above: Performed By: #### L [id number] #### [facility] ([facility]) [address] [place] [address] Eosinophils/100 WBC (Bld) 1.9 % Normal 0.0-6.0 [facility] Comment on above: Performed By: #### L [id number] #### [facility] ([facility]) [address] [place] [address] Erythrocyte distribution width (RBC) [Ratio] 15.7 % High 11.5-15.0 [facility] Comment on above: Performed By: #### L [id number] #### [facility] ([facility]) [address] [place] [address] ERYTHROCYTE MEAN CORPUSCULAR HEMOGLOBIN CONCENTRATION (G/DL) BY AUTOMATED 32.7 g/dL Normal 32.0-35.0 [facility] Comment on above: Performed By: #### L [id number] #### [facility] ([facility]) [address] [place] [address] Hematocrit (Bld) [Volume fraction] 39.2 % Normal 36.0-48.0 [facility] Comment on above: Performed By: #### L [id number] #### [facility] ([facility]) [address] [place] [address] Hemoglobin (Bld) [Mass/Vol] 12.8 g/dL Normal 12.0-15.0 [facility] Comment on above: Performed By: #### L [id number] #### [facility] ([facility]) [address] [place] [address] Immature granulocytes (Bld) [#/Vol] 0.06 10*3/uL Normal 0.00-0.20 [facility] Comment on above: Performed By: #### L [id number] #### [facility] ([facility]) [address] [place] [address] Immature granulocytes/100 WBC (Bld) 0.7 % Normal 0.0-1.0 [facility] Comment on above: Performed By: #### L [id number] #### [facility] ([facility]) [address] [place] [address] Lymphocytes (Bld) [#/Vol] 1.27 10*3/uL Normal 1.20-4.00 [facility] Comment on above: Performed By: #### L [id number] #### [facility] ([facility]) [address] [place] [address] Lymphocytes/100 WBC (Bld) 14.5 % Low 20.0-45.0 [facility] Comment on above: Performed By: #### L [id number] #### [facility] ([facility]) [address] [place] [address] MCH (RBC) [Entitic mass] 27.7 pg Normal 27.0-33.0 [facility] Comment on above: Performed By: #### L [id number] #### [facility] ([facility]) [address] [place] [address] MCV (RBC) [Entitic vol] 84.8 fL Normal 82.0-98.0 [facility] Comment on above: Performed By: #### L [id number] #### [facility] ([facility]) [address] [place] [address] Monocytes (Bld) [#/Vol] 0.40 10*3/uL Normal 0.10-1.00 [facility] Comment on above: Performed By: #### L [id number] #### [facility] ([facility]) [address] [place] [address] Monocytes/100 WBC (Bld) 4.6 % Low 5.0-12.0 [facility] Comment on above: Performed By: #### L [id number] #### [facility] [address] [place] [address] Neutrophils (Bld) [#/Vol] 6.82 10*3/uL Normal 1.60-7.60 [facility] Comment on above: Performed By: #### L [id number] #### [facility] ([facility]) [address] [place] [address] Neutrophils/100 WBC (Bld) 77.7 % High 40.0-72.0 [facility] Comment on above: Performed By: #### L [id number] #### [facility] ([facility]) [address] [place] [address] NRBC (PER 100 WBCS) BY AUTOMATED COUNT 0.0 % Normal 0 [facility] Comment on above: Performed By: #### L [id number] #### [facility] ([facility]) [address] [place] [address] PLATELETS (10*3/UL) IN BLOOD AUTOMATED COUNT 337 10*3/uL Normal 150-400 [facility] Comment on above: Performed By: #### L [id number] #### [facility] ([facility]) [address] [place] [address] RBC (Bld) [#/Vol] 4.62 10*6/uL Normal 3.80-5.00 [facility] Comment on above: Performed By: #### L [id number] #### [facility] ([facility]) [address] [place] [address] WBC (Bld) [#/Vol] 8.77 10*3/uL Normal 4.00-10.60 [facility] Comment on above: Performed By: #### L [id number] #### [facility] ([facility]) [address] [place] [address] COMPREHENSIVE METABOLIC PANE Jonathan 04-23-2024 Albumin [Mass/Vol] 4.4 g/dL Normal 3.5-5.7 [facility] Comment on above: Performed By: #### L [id number] #### [facility] ([facility] [address] [place] [address] ALP [Catalytic activity/Vol] 74 U/L Normal 34-104 [facility] Comment on above: Performed By: #### L [id number] #### [facility] ([facility]) [address] [place] [address] ALT [Catalytic activity/Vol] 9 U/L Normal 7-52 [facility] Comment on above: Performed By: #### L [id number] #### [facility] ([facility]) [address] [place] [address] Anion gap [Moles/Vol] 13 mmol/L Normal 7-20 [facility] Comment on above: Performed By: #### L [id number] #### [facility] ([facility]) [address] [place] [address] AST [Catalytic activity/Vol] 14 U/L Normal 13-39 [facility] Comment on above: Performed By: #### L [id number] #### [facility] ([facility] [address] [place] [address] Bilirubin [Mass/Vol] 0.4 mg/dL Normal 0.3-1.0 [facility] Comment on above: Performed By: #### L [id number] #### [facility] ([facility]) [address] [place] [address] Calcium [Mass/Vol] 9.4 mg/dL Normal 8.6-10.3 [facility] Comment on above: Performed By: #### L [id number] #### [facility] ([facility]) [address] [place] [address] Chloride [Moles/Vol] 104 mmol/L Normal 98-107 [facility] Comment on above: Performed By: #### L [id number] #### [facility] ([facility]) [address] [place] [address] CO2 [Moles/Vol] 25 mmol/L Normal 21-31 [facility] Comment on above: Performed By: #### L [id number] #### [facility] ([facility]) [address] [place] [address] Creatinine [Mass/Vol] 1.09 mg/dL Normal 0.60-1.20 [facility] Comment on above: Performed By: #### L [id number] #### [facility] ([facility]) [address] [place] [address] GLOMERULAR FILTRATION RATE ML/MIN/1.73 SQ M.PREDICTED 62.7 mL/min/1.73m*2 Normal >60.0 [facility] Comment on above: Result Comment: [facility]???s estimated glomerular filtration rate (eGFR) will [...] individuals. Performed By: #### L [id number] #### [facility] ([facility]) [address] [place] [address] Glucose [Mass/Vol] 108 mg/dL High 70-100 [facility] Comment on above: Performed By: #### L [id number] #### [facility] ([facility]) [address] [place] [address] Potassium [Moles/Vol] 3.5 mmol/L Normal 3.5-5.1 [facility] Comment on above: Performed By: #### L [id number] #### [facility] ([facility]) [address] [place] [address] Protein [Mass/Vol] 7.6 g/dL Normal 6.0-8.3 [facility] Comment on above: Performed By: #### L [id number] #### [facility] ([facility]) [address] [place] [address] Sodium [Moles/Vol] 138 mmol/L Normal 136-145 [facility] Comment on above: Performed By: #### L [id number] #### [facility] ([facility]) [address] [facility] [place] [address] Urea nitrogen [Mass/Vol] 13 mg/dL Normal 7-25 [facility] Comment on above: Performed By: #### L [id number] #### [facility] ([facility]) [address] [facility] [place] [address] UREA NITROGEN/CREATININE (MASS RATIO) IN SER/PLAS 11.9 Normal [facility] Comment on above: Performed By: #### L [id number] #### [facility] ([facility]) [address] [place] [address] HEMOGLOBIN A1Con 04-23-2024 Glucose [Mass/Vol] 105 mg/dL Normal [facility] Comment on above: Performed By: #### L [id number] #### [facility] ([facility]) [address] [place] [address] HbA1c (Bld) [Mass fraction] 5.3 % Normal 4.0-6.0 [facility] Comment on above: Performed By: #### L [id number] #### [facility] ([facility]) [address] [place] [address] LIPID PANELon 04-23-2024 CHOL/HDL 4.0 mg/dL Normal [facility] Comment on above: Performed By: #### L [id number] #### [facility] ([facility]) [address] [place] [address] Cholesterol [Mass/Vol] 182 mg/dL Normal 120-200 [facility] Comment on above: Performed By: #### L [id number] #### [facility] [address] [place] [address] Magnesium [Mass/Vol] 166 mg/dL High 40-149 [facility] Comment on above: Result Comment: TRIG LYCERIDE REFERENCE RANGE: 20 YEARS AND OLDER CARDIOVASCULAR RISK LESS THAN 150 mg/dL LOW RISK 150 TO 199 mg/dL BORDERLINE RISK 200 mg/dL AND GREATER HIGH RISK Performed By: #### L [id number] #### [facility] ([facility] [address] [facility] [place] [address] Magnesium [Mass/Vol] 103 mg/dL Normal 0-160 [facility] Comment on above: Performed By: #### L [id number] #### [facility] ([facility] [address] [place] [address] Magnesium [Mass/Vol] 46 mg/dL Normal 23-92 [facility] Comment on above: Performed By: #### L [id number] #### [facility] ([facility]) [address] [place] [address] NON HDL CHOL. (LDL+VLDL) 136 Normal [facility] Comment on above: Performed By: #### L [id number] #### [facility] ([facility]) [address] [place] [address] TOTAL VLDL-C 33 mg/dL Normal 0-40 [facility] Comment on above: Performed By: #### L [id number] #### [facility] ([facility]) [address] [place] [address] Labon 04-23-2024 Lab [id number] Antonio Puri i 1975 F Date Provider Department Center 04/23/2024 2245-[facility]PD LAB RESOURCE [facility] Family History Problem Relation Age of Onset Fibromyalgia Mother Heart disease Father Hypertension Sister Polycystic kidney disease Sister Hypertension Brother Polycystic kidney disease Brother Family Status - Relation Status Age at Mother Father Sister Brother Normal [facility] MAGNESIUMon 04-23-2024 Magnesium [Mass/Vol] 1.8 mg/dL Low 1.9-2.7 [facility] Comment on above: Performed By: #### L [id number] #### [facility] [address] [facility] [place] [address] PHOSPHORUSon 04-23-2024 Magnesium [Mass/Vol] 2.8 mg/dL Normal 2.5-5.0 [facility] Comment on above: Performed By: #### L [id number] #### [facility] ([facility] [address] [place] [address] TACROLIMUS LEVELon Tacrolimus (Bld) [Mass/Vol] 10.5 ng/mL Normal 5.0-20.0 [facility] Comment on above: Result Comment: The [employer] Tacrolimus assay is a delayed one-step immunoassay for the quantitative determination of tacrolimus in human whole blood using the chemiluminescent microparticle immunoassay (CMIA) technology with flexible assay protocols, referred to as Chemiflex. Performed By: #### L [id number] #### [facility] ([facility]) [address] [place] [address] URIC ACIDon 04-23-2024 Magnesium [Mass/Vol] 4.0 mg/dL Normal 2.3-6.6 [facility] Comment on above: Performed By: #### L [id number] #### [facility] [facility]) [address] [place] [address] URINALYSISon 04-23-2024 BILIRUBIN, TOTAL PRESENCE IN URINE Negative Normal Negative [facility] Comment on above: Performed By: #### L [id number] #### [facility] ([facility]) [address] [place] [address] Clarity (U) Cloudy Abnormal Clear [facility] Comment on above: Performed By: #### L [id number] #### [facility] ([facility]) [address] [place] [address] Color (U) Yellow Normal Yellow [facility] Comment on above: Performed By: #### L [id number] #### [facility] ([facility]) [address] [place] [address] Glucose (U) [Mass/Vol] Negative Normal Negative Un [facility] Comment on above: Performed By: #### L [id number] #### [facility] ([facility]) [address] [place] [address] HEMOGLOBIN PRESENCE IN URINE Negative Normal Negative [facility] Comment on above: Performed By: #### L [id number] #### [facility] ([facility]) [address] [place] [address] Ketones Ql (U) Negative Normal Negative [facility] Comment on above: Performed By: #### L [id number] #### [facility] ([facility]) [address] [place] [address] LEUKOCYTE ESTERASE PRESENCE IN URINE BY TEST STRIP Negative Normal Negative [facility] Comment on above: Performed By: #### L [id number] #### [facility] ([facility]) [address] [place] [address] NITRITE PRESENCE IN URINE Negative Normal Negative [facility] Comment on above: Performed By: #### L [id number] #### [facility] ([facility]) [address] [place] [address] pH (U) 7.0 [pH] Normal 5.0-8.0 [facility] Comment on above: Performed By: #### L [id number] #### [facility] ([facility]) [address] [place] [address] Protein (U) [Mass/Vol] Negative Normal Negative Un [facility] Comment on above: Performed By: #### L [id number] #### [facility] ([facility]) [address] [place] [address] Specific gravity (U) [Rel density] 1.011 Low 1.015-1.020 [facility] Comment on above: Performed By: #### L [id number] #### [facility] ([facility]) [address] [place] [address] URINALYSIS MICROSCOPICon AMORPHOUS CRYSTALS (#/HPF) IN URINE Few Abnormal None Seen [facility] Comment on above: Performed By: #### L [id number] #### [facility] ([facility]) [address] [place] [address] CASTS IN URINE Normal [facility] Comment on above: Performed By: #### L [id number] #### [facility] ([facility]) [address] [place] [address] CRYSTALS IN URINE Normal [facility] Comment on above: Performed By: #### L [id number] #### [facility] ([facility]) [address] [place] [address] MUCUS (#/HPF) IN URINE SEDIMENT Occasional Normal None Seen, Occasional, Few [facility] Comment on above: Performed By: #### L [id number] #### [facility] ([facility]) [address] [place] [address] RBC (#/HPF) IN URINE SEDIMENT 3-5 Abnormal None Seen [facility] Comment on above: Performed By: #### L [id number] #### [facility] ([facility]) [address] [place] [address] SQUAMOUS EPITHELIAL CELLS (#/HPF) IN URINE SEDIMENT Many Abnormal None Seen, Occasional [facility] Comment on above: Performed By: #### L [id number] #### [facility] ([facility]) [address] [place] [address] WBC (LEUKOCYTE) (#/HPF) IN URINE SEDIMENT 3-5 Abnormal None Seen [facility] Comment on above: Performed By: #### L [id number] #### [facility] ([facility]) [address] [place] [address] URINE CULTURE, ROUTINEon Bacteria identified Cx Nom (U) <10,000 CFU/ML No Significant Growth Normal [facility] Comment on above: Performed By: #### L [id number] #### [facility] ([facility]) [address] [place] [address] US RENAL COMPLETEon 04-14-20 24 US RENAL COMPLETE EXAM: Renal Ultrasou nd with Doppler: REASON FOR EXAM: Polycystic kidneys. COMPARISON: None. TECHNIQUE: Real-time ultrasonographic evaluation of the kidneys is performed with color flow Doppler. FINDINGS: There is a transplanted right kidney. Right kidney: Numerous ak chin right renal cysts. No hydronephrosis. Left kidney: Numerous ak chin left renal cysts. No hydronephrosis. Uniform and [...] report is generated using voice recognition reporting (Bix). On occasion [facility] erroneously drops words from the report or replaces the spoken word with similar sounding words. Please call with any questions/concerns regarding this report.* Dictated and transcribed 04/14/2024/heriberto This report has been electronically signed and approved by the interpreting radiologist. Electronically Signed René Raymond M.D. 2024-04-14 16:31:56 Normal Not Available Urine Cultureon 03-15-2024 Bacteria identified Cx Nom (U) ORGANISM: Escherichia coli (MDRO) (O:ESCCOLMDRO) [place] Count >100,000 Aerobic CODI Charge (NMIC56) SUSCEPTIBILITY [...] RESISTANT TO ALL B-LACTAM DRUGS. PERFORMED BY: [place] [address] PATHOLOGIST RECORDS TECHNICIAN ANAHY MCKEE M.D. Normal [facility] Comment on above: Performed By: #### C UU #### [address] Documentationon 03-03-2024 Documentation [id number] Antonio Puri sarath 1975 F Date Provider Department Center 03/03/2024 750-JOSE RAFAEL GAVIRIA TXP None Family History Problem Relation Age of Onset Fibromyalgia Mother Heart disease Father Hypertension Sister Polycystic kidney disease Sister Hypertension Brother Polycystic kidney disease Brother Family Status - Relation Status Age at Mother Father Sister Brother Normal [facility] Follow-Upon 12-23-2023 Follow-Up [id number] Antonio Puri i 1975 F Date Provider Department Center 12/23/2023 124-MUNIRA PHAN TXP None Family History Problem Relation Age of Onset Fibromyalgia Mother Heart disease Father Hypertension Sister Polycystic kidney disease Sister Hypertension Brother Polycystic kidney disease Brother Family Status - Relation Status Age at Mother Father Sister Brother Level of Service:51396 MS OFFICE/OUTPATIENT ESTABLISHED MOD MDM 30 MIN Reason for Visit and Comments: Kidney Follow-up [[id number]] - Pt has questions about her lab work. Normal [facility] PAPITO Antinuclear Antibodieson 11-06-2023 Antinuclear Abs, IFA Negative Normal . [facility] Comment on above: Result Comment: Nega tive <1:80 Borderline 1:80 Positive >1:80 ICAP nomenclature: AC-0 For more information about Hep-2 cell patterns use ANApatterns.org, the official website for the International Consensus on Antinuclear Antibody (PAPITO) Patterns (ICAP). Performed at: [address], [place] [id number] Junior Graphic Designer: Gabriel Whitman PhD, Phone: [phone] PERFORMED BY: [place] [address] PATHOLOGIST RECORDS TECHNICIAN ANAHY MCKEE M.D. Performed By: #### C K, CMP, CRP, CBC, ESR #### [place] [address] [place] #### PAPITO #### [facility] , Alanine aminotransferase [En zymatic activity/volume] in Serum or PlasmaOrdered By: Perri Ceja on 11-06-2023 ALT [Catalytic activity/Vol] 20 U/L Normal 7-52 [facility] Comment on above: Performed By: #### C K, CMP, CRP, CBC, ESR #### [address] #### PAPITO #### [facility] , Albumin [Mass/volume] in Ser um or Plasma by Bromocresol green (BCG) dye binding methoOrdered By: Perri Ceja on 11-06-2023 Albumin BCG dye [Mass/Vol] 4.7 g/dL 3.5-5.7 [facility] Alkaline phosphatase [Enzyma tic activity/volume] in Serum or PlasmaOrdered By: Perri Ceja on 11-06-2023 ALP [Catalytic activity/Vol] 96 U/L Normal 34-104 [facility] Comment on above: Performed By: #### C K, CMP, CRP, CBC, ESR #### [place] [address] [place] #### PAPITO #### [facility] , Aspartate aminotransferase [ Enzymatic activity/volume] in Serum or PlasmaOrdered By: Perri Ceja on 11-06-2023 AST [Catalytic activity/Vol] 16 U/L Normal 13-39 [facility] Comment on above: Performed By: #### C K, CMP, CRP, CBC, ESR #### [place] [address] [place] #### PAPITO #### [facility] , Automated basophil %Ordered By: Perri Ceja on 11-06-2023 Basophils/100 WBC (Bld) 0.7 % Normal . [facility] Comment on above: Performed By: #### C K, CMP, CRP, CBC, ESR #### [place] [address] [place] #### PAPITO #### [facility] , Automated basophil countOrde red By: Perri Ceja on 11-06-2023 Basophils (Bld) [#/Vol] 0.1 10*3/uL Normal 0.0-0.2 [facility] Comment on above: Performed By: #### C K, CMP, CRP, CBC, ESR #### [place] [address] [place] #### PAPITO #### [facility] , Automated blood monocyte cou ntOrdered By: Perri Ceja on 11-06-2023 Monocytes (Bld) [#/Vol] 0.6 10*3/uL Normal 0.0-0.8 [facility] Comment on above: Performed By: #### C K, CMP, CRP, CBC, ESR #### [place] [address] [place] #### PAPITO #### [facility] , Automated eosinophil %Ordere d By: Perir Ceja on 11-06-2023 Eosinophils/100 WBC (Bld) 3.0 % Normal . [facility] Comment on above: Performed By: #### C K, CMP, CRP, CBC, ESR #### [place] [address] [place] #### PAPITO #### [facility] , Automated eosinophil countOr dered By: Perri Ceja on 11-06-2023 Eosinophils (Bld) [#/Vol] 0.3 10*3/uL Normal 0.0-0.45 [facility] Comment on above: Performed By: #### C K, CMP, CRP, CBC, ESR #### [facility] [address] [place] [address] [place] #### PAPITO #### [facility] , Automated monocyte %Ordered By: Perri Ceja on 11-06-2023 Monocytes/100 WBC (Bld) 6.6 % Normal . [facility] Comment on above: Performed By: #### C K, CMP, CRP, CBC, ESR #### [facility] [address] [place] [address] [place] #### PAPITO #### [facility] , Automated neutrophil %Ordere d By: Perri Ceja on 11-06-2023 Neutrophils/100 WBC (Bld) 72.1 % Normal . [facility] Comment on above: Performed By: #### C K, CMP, CRP, CBC, ESR #### [place] [address] [place] #### PAPITO #### [facility] , Bilirubin.total [Mass/volume ] in Serum or PlasmaOrdered By: Perri Ceja on 11-06-2023 Bilirubin [Mass/Vol] 0.4 mg/dL Normal 0.3-1.0 [facility] Comment on above: Performed By: #### C K, CMP, CRP, CBC, ESR #### [facility] [address] [place] [address] #### PAPITO #### [facility] , C reactive protein [Mass/vol ume] in Serum or PlasmaOrdered By: Perri Ceja on 11-06-2023 CRP [Mass/Vol] 2.0 mg/dL 0.0-0.5 [facility] C-Reactive Proteinon 024 C-Reactive Protein 2.0 mg/dL High 0.0-0.5 [facility] Comment on above: Result Comment: PERF ORMED BY: [address] [place] [address] PATHOLOGIST RECORDS TECHNICIAN ANAHY MCKEE M.D. Performed By: #### C K, CMP, CRP, CBC, ESR #### [facility] [address] [place] [address] [place] #### PAPITO #### [facility] , Calcium [Mass/volume] in Ser um or PlasmaOrdered By: Perri Ceja on 11-06-2023 Calcium [Mass/Vol] 10.3 mg/dL Normal 8.6-10.3 [facility] Comment on above: Performed By: #### C K, CMP, CRP, CBC, ESR #### [place] [address] [place] #### PAPITO #### [facility] , Carbon dioxide, total [Moles /volume] in Serum or PlasmaOrdered By: Perri Ceja on 11-06-2023 CO2 [Moles/Vol] 26.1 mmol/L Normal 21.0-31.0 [facility] Comment on above: Performed By: #### C K, CMP, CRP, CBC, ESR #### [place] [address] [place] #### PAPITO #### [facility] , Chloride [Moles/volume] in S aislinn or PlasmaOrdered By: Perri Ceja on 11-06-2023 Chloride [Moles/Vol] 104 mmol/L Normal 98-107 [facility] Comment on above: Performed By: #### C K, CMP, CRP, CBC, ESR #### [facility] [address] [place] [address] [place] #### PAPITO #### [facility] , Complete Blood Count Auto Di ffon 11-06-2023 Mean Corpuscular HGB Conc 33.6 g/dL Normal 32.0-35.0 [facility] Comment on above: Performed By: #### C K, CMP, CRP, CBC, ESR #### [place] [address] [place] #### PAPITO #### [facility] , NRBC% 0.1 /100{WBC} Normal 0-0.5 [facility] Comment on above: Performed By: #### C K, CMP, CRP, CBC, ESR #### [address] #### PAPITO #### [facility] , Comprehensive Metabolic Pane jonathan 11-06-2023 Albumin [Mass/Vol] 4.7 g/dL Normal 3.5-5.7 [facility] Comment on above: Performed By: #### C K, CMP, CRP, CBC, ESR #### [place] [address] [place] #### PAPITO #### [facility] , GFR/1.73 sq M.predicted MDRD (S/P/Bld) [Vol rate/Area] 57.919 mL/min/{1.73_m2} Normal [facility] Comment on above: Performed By: #### C K, CMP, CRP, CBC, ESR #### [address] #### PAPITO #### [facility] , Creatine kinase [Enzymatic a ctivity/volume] in Serum or PlasmaOrdered By: Perri Ceja on 11-06-2023 CK [Catalytic activity/Vol] 30 U/L Normal 30-223 [facility] Comment on above: Result Comment: PERF ORMED BY: [place] [address] PATHOLOGIST RECORDS TECHNICIAN ANAHY MCKEE M.D. Performed By: #### C K, CMP, CRP, CBC, ESR #### [place] [address] [place] #### PAPITO #### [facility] , Creatinine [Mass/volume] in Serum or PlasmaOrdered By: Perri Ceja on 11-06-2023 Creatinine [Mass/Vol] 1.17 mg/dL Normal 0.60-1.20 [facility] Comment on above: Performed By: #### C K, CMP, CRP, CBC, ESR #### [facility] [address] [place] [address] [place] #### PAPITO #### [facility] , Erythrocyte Sedimentation Ra mathieu 11-06-2023 ESR (Bld) [Velocity] 49 mm/h High 0-19 [facility] Comment on above: Result Comment: PERF ORMED BY: [place] [address] PATHOLOGIST RECORDS TECHNICIAN ANAHY MCKEE M.D. Performed By: #### C K, CMP, CRP, CBC, ESR #### [address] #### PAPITO #### [facility] , Erythrocyte distribution wid th [Ratio] by Automated countOrdered By: Perri Ceja on 11-06-2023 Erythrocyte distribution width (RBC) [Ratio] 15.3 % Normal 11.9-15.3 [facility] Comment on above: Performed By: #### C K, CMP, CRP, CBC, ESR #### [address] #### PAPITO #### [facility] , Erythrocyte sedimentation ra te by Photometric methodOrdered By: Perri Ceja on 11-06-2023 ESR Photometric method (Bld) [Velocity] 49 mm/hr 0-19 [facility] Erythrocytes [#/volume] in B lood by Automated countOrdered By: Perri Ceja on 11-06-2023 RBC (Bld) [#/Vol] 4.60 10*6/uL Normal 3.60-5.00 [facility] Comment on above: Performed By: #### C K, CMP, CRP, CBC, ESR #### [facility] [address] [place] [address] [place] #### PAPITO #### [facility] , Glucose [Mass/volume] in Ser um or PlasmaOrdered By: Perri Ceja on 11-06-2023 Glucose [Mass/Vol] 91 mg/dL Normal 70-100 [facility] Comment on above: ADA recommended refe rence rangeRandom Glucose Reference Range is dependent on time and content of last meal. Glucose of more than 200 mg/dL in a nonstressed, ambulatory subject supports the diagnosis of Diabetes Mellitus. Result Comment: [facility] om Glucose Reference Range is dependent on time and content of last meal. Glucose of more than 200 mg/dL in a nonstressed, ambulatory subject supports the diagnosis of Diabetes Mellitus. ADA recommended reference range Performed By: #### C K, CMP, CRP, CBC, ESR #### [place] [address] [place] #### PAPITO #### [facility] , Hematocrit [Volume Fraction] of Blood by Automated countOrdered By: Perri Ceja on 11-06-2023 Hematocrit (Bld) [Volume fraction] 38.9 % Normal 34.0-46.4 [facility] Comment on above: Performed By: #### C K, CMP, CRP, CBC, ESR #### [facility] [address] [place] [address] [place] #### PAPITO #### [facility] , Hemoglobin [Mass/volume] in BloodOrdered By: Perri Ceja on 11-06-2023 Hemoglobin (Bld) [Mass/Vol] 13.1 g/dL Normal 11.8-15.4 [facility] Comment on above: Performed By: #### C K, CMP, CRP, CBC, ESR #### [facility] [address] [place] [address] [place] #### PAPITO #### [facility] , Leukocytes [#/volume] correc noah for nucleated erythrocytes in Blood by Automated counOrdered By: Perri Ceja on 11-06-2023 WBC corrected for nucl RBC Auto (Bld) [#/Vol] 8.8 10*3/uL 3.8-11.6 [facility] Leukocytes [#/volume] in Blo od by Automated countOrdered By: Perri Ceja on 11-06-2023 WBC (Bld) [#/Vol] 8.8 10*3/uL Normal 3.8-11.6 [facility] Comment on above: Performed By: #### C K, CMP, CRP, CBC, ESR #### [facility] [address] [place] [address] [place] #### PAPITO #### [facility] , Lymphocytes [#/volume] in Bl ood by Automated countOrdered By: Perri Ceja on 11-06-2023 Lymphocytes (Bld) [#/Vol] 1.5 10*3/uL Normal 1.00-4.8 [facility] Comment on above: Performed By: #### C K, CMP, CRP, CBC, ESR #### [facility] [address] [place] [address] [place] #### PAPITO #### [facility] , Lymphocytes/100 leukocytes i n Blood by Automated countOrdered By: Perri Ceja on 11-06-2023 Lymphocytes/100 WBC (Bld) 17.6 % Normal . [facility] Comment on above: Performed By: #### C K, CMP, CRP, CBC, ESR #### [place] [address] [place] #### PAPITO #### [facility] , MCH [Entitic mass] by Automa noah countOrdered By: Perri Ceja on 11-06-2023 MCH (RBC) [Entitic mass] 28.4 pg Normal 24.7-34.3 [facility] Comment on above: Performed By: #### C K, CMP, CRP, CBC, ESR #### [facility] [address] [place] [address] [place] #### PAPITO #### [facility] , MCHC Auto (RBC) [Mass/Vol]Or dered By: Perri Ceja on 11-06-2023 MCHC (RBC) [Mass/Vol] 33.6 g/dL 32.0-35.0 [facility] MCV [Entitic volume] by Auto mated countOrdered By: Perri Ceja on 11-06-2023 MCV (RBC) [Entitic vol] 84.6 fL Normal 80-100 [facility] Comment on above: Performed By: #### C K, CMP, CRP, CBC, ESR #### [facility] [address] [place] [address] [place] #### PAPITO #### [facility] , Neutrophils [#/volume] in Bl ood by Automated countOrdered By: Perri Ceja on 11-06-2023 Neutrophils (Bld) [#/Vol] 6.3 10*3/uL Normal 1.8-7.7 [facility] Comment on above: Performed By: #### C K, CMP, CRP, CBC, ESR #### [facility] [address] [place] [address] [place] #### PAPITO #### [facility] , No Panel InformationOrdered By: Perri Ceja on 11-06-2023 Estimated GFR (CKD-EPI) 57.919 mL/Min [facility] Creatinine Clearance (Chem N/A [facility] Nucleated erythrocytes [Pres ence] in Blood by Automated countOrdered By: Perri Ceja on 11-06-2023 Nucleated RBC Auto Ql (Bld) 0.1 /100{WBC} 0-0.5 [facility] Platelet mean volume [Entiti c volume] in Blood by Automated countOrdered By: Perri Ceja on 11-06-2023 Platelet mean volume (Bld) [Entitic vol] 6.9 fL Normal 6.3-10.7 [facility] Comment on above: Performed By: #### C K, CMP, CRP, CBC, ESR #### [facility] [address] [place] [address] [place] #### PAPITO #### [facility] , Platelets [#/volume] in Bloo d by Automated countOrdered By: Perri Ceja on 11-06-2023 Platelets (Bld) [#/Vol] 393 10*3/uL Normal 150-450 [facility] Comment on above: Performed By: #### C K, CMP, CRP, CBC, ESR #### [address] [place] [address] [place] #### PAPITO #### [facility] , Potassium [Moles/volume] in Serum or PlasmaOrdered By: Perri Ceja on 11-06-2023 Potassium [Moles/Vol] 3.8 mmol/L Normal 3.5-5.1 [facility] Comment on above: Performed By: #### C K, CMP, CRP, CBC, ESR #### [place] [address] [place] #### PAPITO #### [facility] , Protein [Mass/volume] in Ser um or PlasmaOrdered By: Perri Ceja on 11-06-2023 Protein [Mass/Vol] 7.7 g/dL Normal 6.4-8.9 [facility] Comment on above: Performed By: #### C K, CMP, CRP, CBC, ESR #### [place] [address] [place] #### PAPITO #### [facility] , Serum globulin measurement b y calculation (mass/volume)Ordered By: Perri Ceja on 11-06-2023 Globulin (S) [Mass/Vol] 3.0 g/dL [facility] Comment on above: Performed By: #### C K, CMP, CRP, CBC, ESR #### [place] [address] [place] #### PAPITO #### [facility] , Serum or plasma albumin/glob ulin mass ratioOrdered By: Perri Ceja on 11-06-2023 Albumin/Globulin [Mass ratio] 1.6 {ratio} [facility] Comment on above: Performed By: #### C K, CMP, CRP, CBC, ESR #### [facility] [address] [place] [address] [place] #### PAPITO #### [facility] , Serum or plasma anion gap de terminationOrdered By: Perri Ceja on 11-06-2023 Anion gap [Moles/Vol] 12.7 mmol/L Normal 6.0-15.0 [facility] Comment on above: Performed By: #### C K, CMP, CRP, CBC, ESR #### [facility] [address] [place] [address] [place] #### PAPITO #### [facility] , Sodium [Moles/volume] in Ser um or PlasmaOrdered By: Perri Ceja on 11-06-2023 Sodium [Moles/Vol] 139 mmol/L Normal 136-145 [facility] Comment on above: Performed By: #### C K, CMP, CRP, CBC, ESR #### [facility] [address] [place] [address] #### PAPITO #### [facility] , Urea nitrogen [Mass/volume] in Serum or PlasmaOrdered By: Perri Ceja on 11-06-2023 Urea nitrogen [Mass/Vol] 17 mg/dL Normal 7-25 [facility] Comment on above: Performed By: #### C K, CMP, CRP, CBC, ESR #### [facility] [address] [place] [address] [place] #### PAPITO #### [facility] , Orders Onlyon 10-02-2023 Orders Only [id number] Antonio Puri i 1975 F Date Provider Department Center 10/02/2023 1971-LU STEPHENS TXP None Family History Problem Relation Age of Onset Fibromyalgia Mother Heart disease Father Hypertension Sister Polycystic kidney disease Sister Hypertension Brother Polycystic kidney disease Brother Family Status - Relation Status Age at Mother Father Sister Brother Normal [facility] Follow-Upon 09-01-2023 Follow-Up [id number] Antonio Puri i 1975 F Date Provider Department Center 09/01/2023 344-SUJIT BERNAL TXP None Family History Problem Relation Age of Onset Fibromyalgia Mother Heart disease Father Hypertension Sister Polycystic kidney disease Sister Hypertension Brother Polycystic kidney disease Brother Family Status - Relation Status Age at Mother Father Sister Brother Level of Service:[id number] MS OFFICE/OUTPATIENT ESTABLISHED MOD MDM 30-39 MIN (GC) Reason for Visit and Comments: Kidney Follow-up [[id number]] - Patient reports pain all over her body that comes and goes. She would like to discuss swelling in her feet. Normal [facility] BILIRUBIN, DIRECTon 08-26-20 Magnesium [Mass/Vol] 0.1 mg/dL Normal 0-0.2 [facility] Comment on above: Performed By: #### L [id number] #### [facility] ([facility]) [address] [place] [address] CBC WITH AUTO DIFFERENTIALon 08-26-2023 Basophils (Bld) [#/Vol] 0.05 10*3/uL Normal 0.00-0.20 [facility] Comment on above: Performed By: #### L [id number] #### [facility] ([facility]) [address] [place] [address] Basophils/100 WBC (Bld) 0.6 % Normal 0.0-1.0 [facility] Comment on above: Performed By: #### L [id number] #### [facility] ([facility]) [address] [place] [address] Eosinophils (Bld) [#/Vol] 0.20 10*3/uL Normal 0.00-0.50 [facility] Comment on above: Performed By: #### L [id number] #### [facility] ([facility]) [address] [place] [address] Eosinophils/100 WBC (Bld) 2.5 % Normal 0.0-6.0 [facility] Comment on above: Performed By: #### L [id number] #### [facility] ([facility]) [address] [place] [address] Erythrocyte distribution width (RBC) [Ratio] 14.4 % Normal 11.5-15.0 [facility] Comment on above: Performed By: #### L [id number] #### [facility] ([facility]) [address] [place] [address] ERYTHROCYTE MEAN CORPUSCULAR HEMOGLOBIN CONCENTRATION (G/DL) BY AUTOMATED 32.9 g/dL Normal 32.0-35.0 [facility] Comment on above: Performed By: #### L [id number] #### [facility] ([facility]) [address] [place] [address] Hematocrit (Bld) [Volume fraction] 40.4 % Normal 36.0-48.0 [facility] Comment on above: Performed By: #### L [id number] #### [facility] ([facility]) [address] [place] [address] Hemoglobin (Bld) [Mass/Vol] 13.3 g/dL Normal 12.0-15.0 [facility] Comment on above: Performed By: #### L [id number] #### [facility] ([facility]) [address] [place] [address] Immature granulocytes (Bld) [#/Vol] 0.06 10*3/uL Normal 0.00-0.20 [facility] Comment on above: Performed By: #### L [id number] #### [facility] ([facility]) [address] [place] [address] Immature granulocytes/100 WBC (Bld) 0.7 % Normal 0.0-1.0 [facility] Comment on above: Performed By: #### L [id number] #### [facility] ([facility]) [address] [place] [address] Lymphocytes (Bld) [#/Vol] 1.19 10*3/uL Low 1.20-4.00 [facility] Comment on above: Performed By: #### L [id number] #### [facility] ([facility]) [address] [place] [address] Lymphocytes/100 WBC (Bld) 14.6 % Low 20.0-45.0 [facility] Comment on above: Performed By: #### L [id number] #### [facility] ([facility]) [address] [place] [address] MCH (RBC) [Entitic mass] 28.4 pg Normal 27.0-33.0 [facility] Comment on above: Performed By: #### L [id number] #### [facility] ([facility]) [address] [place] [address] MCV (RBC) [Entitic vol] 86.1 fL Normal 82.0-98.0 [facility] Comment on above: Performed By: #### L [id number] #### [facility] ([facility]) [address] [place] [address] Monocytes (Bld) [#/Vol] 0.42 10*3/uL Normal 0.10-1.00 [facility] Comment on above: Performed By: #### L [id number] #### [facility] ([facility]) [address] [place] [address] Monocytes/100 WBC (Bld) 5.2 % Normal 5.0-12.0 [facility] Comment on above: Performed By: #### L [id number] #### [facility] ([facility]) [address] [place] [address] Neutrophils (Bld) [#/Vol] 6.22 10*3/uL Normal 1.60-7.60 [facility] Comment on above: Performed By: #### L [id number] #### [facility] ([facility]) [address] [place] [address] Neutrophils/100 WBC (Bld) 76.4 % High 40.0-72.0 [facility] Comment on above: Performed By: #### L [id number] #### [facility] ([facility]) [address] [place] [address] NRBC (PER 100 WBCS) BY AUTOMATED COUNT 0.0 % Normal 0 [facility] Comment on above: Performed By: #### L [id number] #### [facility] ([facility]) [address] [place] [address] PLATELETS (10*3/UL) IN BLOOD AUTOMATED COUNT 374 10*3/uL Normal 150-400 [facility] Comment on above: Performed By: #### L [id number] #### [facility] ([facility]) [address] [place] [address] RBC (Bld) [#/Vol] 4.69 10*6/uL Normal 3.80-5.00 [facility] Comment on above: Performed By: #### L [id number] #### [facility] ([facility]) [address] [place] [address] WBC (Bld) [#/Vol] 8.14 10*3/uL Normal 4.00-10.60 [facility] Comment on above: Performed By: #### L [id number] #### [facility] ([facility]) [address] [place] [address] COMPREHENSIVE METABOLIC PANE [facility] 08-26-2023 Albumin [Mass/Vol] 4.7 g/dL Normal 3.5-5.7 [facility] Comment on above: Performed By: #### L [id number] #### [facility] ([facility]) [address] [place] [address] ALP [Catalytic activity/Vol] 90 U/L Normal 34-104 [facility] Comment on above: Performed By: #### L [id number] #### [facility] ([facility]) [address] [place] [address] ALT [Catalytic activity/Vol] 26 U/L Normal 7-52 [facility] Comment on above: Performed By: #### L [id number] #### [facility] ([facility]) [address] [place] [address] Anion gap [Moles/Vol] 12 mmol/L Normal 7-20 [facility] Comment on above: Performed By: #### L [id number] #### [facility] ([facility]) [address] [place] [address] AST [Catalytic activity/Vol] 22 U/L Normal 13-39 [facility] Comment on above: Performed By: #### L [id number] #### [facility] ([facility]) [address] [place] [address] Bilirubin [Mass/Vol] 0.4 mg/dL Normal 0.3-1.0 [facility] Comment on above: Performed By: #### L [id number] #### [facility] ([facility]) [address] [place] [address] Calcium [Mass/Vol] 9.6 mg/dL Normal 8.6-10.3 [facility] Comment on above: Performed By: #### L [id number] #### [facility] ([facility]) [address] [place] [address] Chloride [Moles/Vol] 103 mmol/L Normal 98-107 [facility] Comment on above: Performed By: #### L [id number] #### [facility] ([facility]) [address] [place] [address] CO2 [Moles/Vol] 26 mmol/L Normal 21-31 [facility] Comment on above: Performed By: #### L [id number] #### [facility] ([facility]) [address] [place] [address] Creatinine [Mass/Vol] 1.12 mg/dL Normal 0.60-1.20 [facility] Comment on above: Performed By: #### L [id number] #### [facility] ([facility]) [address] [place] [address] GLOMERULAR FILTRATION RATE ML/MIN/1.73 SQ M.PREDICTED 61.0 mL/min/1.73m*2 Normal >60.0 [facility] Comment on above: Result Comment: [facility]???s estimated glomerular filtration rate (eGFR) will [...] individuals. Performed By: #### L [id number] #### [facility] ([facility]) [address] [place] [address] Glucose [Mass/Vol] 125 mg/dL High 70-100 [facility] Comment on above: Performed By: #### L [id number] #### [facility] ([facility]) [address] [place] [address] Potassium [Moles/Vol] 3.1 mmol/L Low 3.5-5.1 [facility] Comment on above: Performed By: #### L [id number] #### [facility] ([facility]) [address] [place] [address] Protein [Mass/Vol] 7.4 g/dL Normal 6.0-8.3 [facility] Comment on above: Performed By: #### L [id number] #### [facility] ([facility]) [address] [place] [address] Sodium [Moles/Vol] 138 mmol/L Normal 136-145 [facility] Comment on above: Performed By: #### L [id number] #### [facility] ([facility]) [address] [place] [address] Urea nitrogen [Mass/Vol] 15 mg/dL Normal 7-25 [facility] Comment on above: Performed By: #### L [id number] #### [facility] ([facility]) [address] [place] [address] UREA NITROGEN/CREATININE (MASS RATIO) IN SER/PLAS 13.4 Normal [facility] Comment on above: Performed By: #### L [id number] #### [facility] ([facility]) [address] [place] [address] HEMOGLOBIN A1Con 08-26-2023 Glucose [Mass/Vol] 108 mg/dL Normal [facility] Comment on above: Performed By: #### L [id number] #### [facility] ([facility]) [address] [place] [address] HbA1c (Bld) [Mass fraction] 5.4 % Normal 4.0-6.0 [facility] Comment on above: Performed By: #### L [id number] #### [facility] ([facility]) [address] [place] [address] LIPID PANELon 08-26-2023 CHOL/HDL 4.7 mg/dL Normal [facility] Comment on above: Performed By: #### L [id number] #### [facility] ([facility]) [address] [place] [address] Cholesterol [Mass/Vol] 198 mg/dL Normal 120-200 [facility] Comment on above: Performed By: #### L [id number] #### [facility] ([facility]) [address] [place] [address] Magnesium [Mass/Vol] 248 mg/dL High 40-149 [facility] Comment on above: Result Comment: TRIG LYCERIDE REFERENCE RANGE: 20 YEARS AND OLDER CARDIOVASCULAR RISK LESS THAN 150 mg/dL LOW RISK 150 TO 199 mg/dL BORDERLINE RISK 200 mg/dL AND GREATER HIGH RISK Performed By: #### L [id number] #### [facility] ([facility]) [address] [place] [address] Magnesium [Mass/Vol] 106 mg/dL Normal 0-160 [facility] Comment on above: Performed By: #### L [id number] #### [facility] ([facility]) [address] [place] [address] Magnesium [Mass/Vol] 42 mg/dL Normal 23-92 [facility] Comment on above: Performed By: #### L [id number] #### [facility] ([facility]) [address] [place] [address] NON HDL CHOL. (LDL+VLDL) 156 Normal [facility] Comment on above: Performed By: #### L [id number] #### [facility] ([facility]) [address] [place] [address] TOTAL VLDL-C 50 mg/dL High 0-40 [facility] Comment on above: Performed By: #### L [id number] #### [facility] ([facility]) [address] [place] [address] [facility] 08-26-2023 Lab [id number] KhushiAntonio i 1975 F Date Provider Department Center 08/26/2023 2245-[facility] LAB RESOURCE [facility] C Family History Problem Relation Age of Onset Fibromyalgia Mother Heart disease Father Hypertension Sister Polycystic kidney disease Sister Hypertension Brother Polycystic kidney disease Brother Family Status - Relation Status Age at Mother Father Sister Brother Normal [facility] MAGNESIUMon 08-26-2023 Magnesium [Mass/Vol] 1.5 mg/dL Low 1.9-2.7 [facility] Comment on above: Performed By: #### L [id number] #### [facility] ([facility]) [address] [place] [address] PHOSPHORUSon 08-26-2023 Magnesium [Mass/Vol] 2.9 mg/dL Normal 2.5-5.0 [facility] Comment on above: Performed By: #### L [id number] #### [facility] ([facility]) [address] [place] [address] TACROLIMUS LEVELon Tacrolimus (Bld) [Mass/Vol] 9.2 ng/mL Normal 5.0-20.0 [facility] Comment on above: Result Comment: The [employer] Tacrolimus assay is a delayed one-step immunoassay for the quantitative determination of tacrolimus in human whole blood using the chemiluminescent microparticle immunoassay (CMIA) technology with flexible assay protocols, referred to as Chemiflex. Performed By: #### L [id number] #### [facility] ([facility]) [address] [facility] [place] [address] URIC ACIDon 08-26-2023 Magnesium [Mass/Vol] 5.1 mg/dL Normal 2.3-6.[address] [facility] Comment on above: Performed By: #### L [id number] #### [facility] ([facility]) [address] [place] [address] COMPREHENSIVE METABOLIC PANE Jonathan 08-06-2023 Albumin [Mass/Vol] 4.7 g/dL Normal 3.5-5.7 [facility] Comment on above: Performed By: #### L [id number] #### [facility] ([facility]) [address] [place] [address] ALP [Catalytic activity/Vol] 85 U/L Normal 34-104 [facility] Comment on above: Performed By: #### L [id number] #### [facility] ([facility]) [address] [place] [address] ALT [Catalytic activity/Vol] 25 U/L Normal 7-52 [facility] Comment on above: Performed By: #### L [id number] #### [facility] ([facility]) [address] [place] [address] Anion gap [Moles/Vol] 14 mmol/L Normal 7-20 [facility] Comment on above: Performed By: #### L [id number] #### [facility] ([facility]) [address] [place] [address] AST [Catalytic activity/Vol] 23 U/L Normal 13-39 [facility] Comment on above: Performed By: #### L [id number] #### [facility] ([facility]) [address] [place] [address] Bilirubin [Mass/Vol] 0.5 mg/dL Normal 0.3-1.0 [facility] Comment on above: Performed By: #### L [id number] #### [facility] ([facility]) [address] [place] [address] Calcium [Mass/Vol] 9.5 mg/dL Normal 8.6-10.3 [facility] Comment on above: Performed By: #### L [id number] #### [facility] ([facility]) [address] [place] [address] Chloride [Moles/Vol] 105 mmol/L Normal 98-107 [facility] Comment on above: Performed By: #### L [id number] #### [facility] ([facility]) [address] [place] [address] CO2 [Moles/Vol] 21 mmol/L Normal 21-31 [facility] Comment on above: Performed By: #### L [id number] #### [facility] ([facility]) [address] [place] [address] Creatinine [Mass/Vol] 1.23 mg/dL High 0.60-1.20 [facility] Comment on above: Performed By: #### L [id number] #### [facility] ([facility]) [address] [place] [address] GLOMERULAR FILTRATION RATE ML/MIN/1.73 SQ M.PREDICTED 54.5 mL/min/1.73m*2 Low >60.0 [facility] Comment on above: Result Comment: [facility]???s estimated glomerular filtration rate (eGFR) will [...] group of individuals. Performed By: #### L [id number] #### [facility] ([facility]) [address] [place] [address] Glucose [Mass/Vol] 133 mg/dL High 70-100 [facility] Comment on above: Performed By: #### L [id number] #### [facility] ([facility]) [address] [place] [address] Potassium [Moles/Vol] 3.4 mmol/L Low 3.5-5.1 [facility] Comment on above: Performed By: #### L [id number] #### [facility] ([facility]) [address] [place] [address] Protein [Mass/Vol] 7.4 g/dL Normal 6.0-8.3 [facility] Comment on above: Performed By: #### L [id number] #### [facility] ([facility]) [address] [place] [address] Sodium [Moles/Vol] 137 mmol/L Normal 136-145 [facility] Comment on above: Performed By: #### L [id number] #### [facility] ([facility]) [address] [facility] [place] [address] Urea nitrogen [Mass/Vol] 14 mg/dL Normal 7-25 [facility] Comment on above: Performed By: #### L [id number] #### [facility] ([facility]) [address] [place] [address] UREA NITROGEN/CREATININE (MASS RATIO) IN SER/PLAS 11.4 Normal [facility] Comment on above: Performed By: #### L [id number] #### [facility] ([facility]) [address] [place] [address] [place] 08-06-2023 Lab [id number] Khushi,Brand i 1975 F Date Provider Department Center 08/06/2023 2245-[facility] LAB RESOURCE [facility] Family History Problem Relation Age of Onset Fibromyalgia Mother Heart disease Father Hypertension Sister Polycystic kidney disease Sister Hypertension Brother Polycystic kidney disease Brother Family Status - Relation Status Age at Mother Father Sister Brother Normal [facility] Orders Onlyon 08-06-2023 Orders Only [id number] Khushi,Brand i 1975 F Date Provider Department Center 08/06/2023 3373-[facility] TXP None Family History Problem Relation Age of Onset Fibromyalgia Mother Heart disease Father Hypertension Sister Polycystic kidney disease Sister Hypertension Brother Polycystic kidney disease Brother Family Status - Relation Status Age at Mother Father Sister Brother Normal [facility] SINGLE ANTIGEN CLASS Ion AB SCREEN COMMENTS No Class I donor spe cific antibody identified Normal [facility] Comment on above: Order Comment: To be used after initial monthly order expires Performed By: #### L [id number] #### [facility] ([facility]) [address] [place] [address] CLASS I TESTED DATE [facility] Comment on above: Order Comment: To be used after initial monthly order expires Performed By: #### L [id number] #### [facility] ([facility]) [address] [place] [address] SINGLE ANTIGEN CLASS 1 TEST METHOD Class I Single Antigen Normal [facility] Comment on above: Order Comment: To be used after initial monthly order expires Performed By: #### L [id number] #### [facility] ([facility]) [address] [place] [address] SINGLE ANTIGEN CLASS IIon AB SCREEN COMMENTS No Class II donor specific antibody identified [facility] Comment on above: Order Comment: To be used after initial monthly order expires Performed By: #### L [id number] #### [facility] ([facility]) [address] [place] [address] CLASS II TESTED DATE [facility] Comment on above: Order Comment: To be used after initial monthly order expires Performed By: #### L [id number] #### [facility] [address] [place] [address] SIGNED BY Signed by Sree escamilla C[facility]) [place](ASCP), Armature Bander Transplant Immunology [facility] Comment on above: Order Comment: To be used after initial monthly order expires Performed By: #### L [id number] #### [facility] ([facility]) [address] [place] [address] Result Comment: Clas s I Antigen Microbeads Performed By: #### L [id number] #### [facility] [address] [place] [address] SINGLE ANTIGEN CLASS 2 TEST METHOD Class II Single Antigen Normal [facility] Comment on above: Order Comment: To be used after initial monthly order expires Result Comment: Clas s II Antigen Microbeads Performed By: #### L [id number] #### [facility] ([facility]) [address] [place] [address] MM screening mammo BI w/CADo n 07-30-2023 MM screening mammo BI w/CAD [facility] Main [place] [address] [place] [address] Mammography Report Signed Patient: Mandeep Puri MR#: [id number] 15 : 1975 Acct:[id number] Age/Sex: 47 / F ADM Date: 07/30/23 Loc: [place] Room: Type[facility] Attending Dr: Referral Self Copies to: [...] Messina Jr., D.OSon07/30/2023 4:05 PM Dictation Location: [facility] Transcribed By: SALMA 07/30/23 1605 Dictated By: Evan [place]ina Jr, DO 07/30/23 1604 Signed By: 07/30/23 160 Normal [facility] CBC WITH AUTO DIFFERENTIALon 07-24-2023 Basophils (Bld) [#/Vol] 0.06 10*3/uL Normal 0.00-0.20 [facility] Comment on above: Performed By: #### L [id number] #### [facility] ([facility]) [address] [place] [address] Basophils/100 WBC (Bld) 0.7 % Normal 0.0-1.0 [facility] Comment on above: Performed By: #### L [id number] #### [facility] ([facility]) [address] [place] [address] Eosinophils (Bld) [#/Vol] 0.28 10*3/uL Normal 0.00-0.50 [facility] Comment on above: Performed By: #### L [id number] #### [facility] ([facility]) [address] [place] [address] Eosinophils/100 WBC (Bld) 3.3 % Normal 0.0-6.0 [facility] Comment on above: Performed By: #### L [id number] #### [facility] [address] [place] [address] Erythrocyte distribution width (RBC) [Ratio] 14.6 % Normal 11.5-15.0 [facility] Comment on above: Performed By: #### L [id number] #### [facility] ([facility]) [address] [place] [address] ERYTHROCYTE MEAN CORPUSCULAR HEMOGLOBIN CONCENTRATION (G/DL) BY AUTOMATED 33.2 g/dL Normal 32.0-35.0 [facility] Comment on above: Performed By: #### L [id number] #### [facility] ([facility]) [address] [place] [address] Hematocrit (Bld) [Volume fraction] 39.7 % Normal 36.0-48.0 [facility] Comment on above: Performed By: #### L [id number] #### [facility] ([facility]) [address] [place] [address] Hemoglobin (Bld) [Mass/Vol] 13.2 g/dL Normal 12.0-15.0 [facility] Comment on above: Performed By: #### L [id number] #### [facility] ([facility] [address] [place] [address] Immature granulocytes (Bld) [#/Vol] 0.09 10*3/uL Normal 0.00-0.20 [facility] Comment on above: Performed By: #### L [id number] #### [facility] ([facility]) [address] [place] [address] Immature granulocytes/100 WBC (Bld) 1.1 % High 0.0-1.0 [facility] Comment on above: Performed By: #### L [id number] #### [facility] ([facility]) [address] [place] [address] Lymphocytes (Bld) [#/Vol] 1.41 10*3/uL Normal 1.20-4.00 [facility] Comment on above: Performed By: #### L [id number] #### [facility] ([facility]) [address] [place] [address] Lymphocytes/100 WBC (Bld) 16.5 % Low 20.0-45.0 [facility] Comment on above: Performed By: #### L [id number] #### [facility] ([facility]) [address] [place] [address] MCH (RBC) [Entitic mass] 28.9 pg Normal 27.0-33.0 [facility] Comment on above: Performed By: #### L [id number] #### [facility] ([facility] [address] [place] [address] MCV (RBC) [Entitic vol] 86.9 fL Normal 82.0-98.0 [facility] Comment on above: Performed By: #### L [id number] #### [facility] ([facility]) [address] [place] [address] Monocytes (Bld) [#/Vol] 0.44 10*3/uL Normal 0.10-1.00 [facility] Comment on above: Performed By: #### L [id number] #### [facility] ([facility]) [address] [place] [address] Monocytes/100 WBC (Bld) 5.1 % Normal 5.0-12.0 [facility] Comment on above: Performed By: #### L [id number] #### [facility] ([facility]) [address] [place] [address] Neutrophils (Bld) [#/Vol] 6.28 10*3/uL Normal 1.60-7.60 [facility] Comment on above: Performed By: #### L [id number] #### [facility] ([facility]) [address] [place] [address] Neutrophils/100 WBC (Bld) 73.3 % High 40.0-72.0 [facility] Comment on above: Performed By: #### L [id number] #### [facility] ([facility]) [address] [place] [address] NRBC (PER 100 WBCS) BY AUTOMATED COUNT 0.0 % Normal 0 [facility] Comment on above: Performed By: #### L [id number] #### [facility] ([facility]) [address] [place] [address] PLATELETS (10*3/UL) IN BLOOD AUTOMATED COUNT 371 10*3/uL Normal 150-400 [facility] Comment on above: Performed By: #### L [id number] #### [facility] ([facility]) [address] [place] [address] RBC (Bld) [#/Vol] 4.57 10*6/uL Normal 3.80-5.00 [facility] Comment on above: Performed By: #### L [id number] #### [facility] ([facility]) [address] [place] [address] WBC (Bld) [#/Vol] 8.56 10*3/uL Normal 4.00-10.60 [facility] Comment on above: Performed By: #### L [id number] #### [facility] ([facility]) [address] [place] [address] Labon 07-24-2023 Lab [id number] Khushi,Brand i 1975 F Date Provider Department Center 07/24/2023 2245-[facility] LAB RESOURCE [facility] Family History Problem Relation Age of Onset Fibromyalgia Mother Heart disease Father Hypertension Sister Polycystic kidney disease Sister Hypertension Brother Polycystic kidney disease Brother Family Status - Relation Status Age at Mother Father Sister Brother Normal [facility] Orders Onlyon 07-24-2023 Orders Only [id number] Khushi,Brand i 1975 F Date Provider Department Center 07/24/2023 1971-[facility] STEPHENS TXP None Family History Problem Relation Age of Onset Fibromyalgia Mother Heart disease Father Hypertension Sister Polycystic kidney disease Sister Hypertension Brother Polycystic kidney disease Brother Family Status - Relation Status Age at Mother Father Sister Brother Normal [facility] BASIC METABOLIC PANELon 07-06 Anion gap [Moles/Vol] 16 mmol/L Normal 7-20 [facility] Comment on above: Performed By: #### L [id number] #### [facility] ([facility]) [address] [place] [address] Calcium [Mass/Vol] 9.7 mg/dL Normal 8.6-10.3 [facility] Comment on above: Performed By: #### L [id number] #### [facility] ([facility]) [address] [place] [address] Chloride [Moles/Vol] 104 mmol/L Normal 98-107 [facility] Comment on above: Performed By: #### L [id number] #### [facility] ([facility]) [address] [place] [address] CO2 [Moles/Vol] 23 mmol/L Normal 21-31 [facility] Comment on above: Performed By: #### L [id number] #### [facility] ([facility]) [address] [place] [address] Creatinine [Mass/Vol] 1.18 mg/dL Normal 0.60-1.20 [facility] Comment on above: Performed By: #### L [id number] #### [facility] ([facility]) [address] [place] [address] GLOMERULAR FILTRATION RATE ML/MIN/1.73 SQ M.PREDICTED 57.3 mL/min/1.73m*2 Low >60.0 [facility] Comment on above: Result Comment: [facility]???s estimated glomerular filtration rate (eGFR) will [...] individuals. Performed By: #### L [id number] #### [facility] ([facility]) [address] [place] [address] Glucose [Mass/Vol] 134 mg/dL High 70-100 [facility] Comment on above: Performed By: #### L [id number] #### [facility] ([facility]) [address] [place] [address] Potassium [Moles/Vol] 3.5 mmol/L Normal 3.5-5.1 [facility] Comment on above: Performed By: #### L [id number] #### [facility] ([facility]) [address] [place] [address] Sodium [Moles/Vol] 139 mmol/L Normal 136-145 [facility] Comment on above: Performed By: #### L [id number] #### [facility] ([facility]) [address] [place] [address] Urea nitrogen [Mass/Vol] 16 mg/dL Normal 7-25 [facility] Comment on above: Performed By: #### L [id number] #### [facility] ([facility]) [address] [place] [address] UREA NITROGEN/CREATININE (MASS RATIO) IN SER/PLAS 13.6 Normal [facility] Comment on above: Performed By: #### L [id number] #### [facility] ([facility]) [address] [place] [address] CBC WITH AUTO DIFFERENTIALon 07-17-2023 Basophils (Bld) [#/Vol] 0.05 10*3/uL Normal 0.00-0.20 [facility] Comment on above: Performed By: #### L [id number] #### [facility] ([facility]) [address] [place] [address] Basophils/100 WBC (Bld) 0.6 % Normal 0.0-1.0 [facility] Comment on above: Performed By: #### L [id number] #### [facility] ([facility]) [address] [place] [address] Eosinophils (Bld) [#/Vol] 0.21 10*3/uL Normal 0.00-0.50 [facility] Comment on above: Performed By: #### L [id number] #### [facility] ([facility]) [address] [place] [address] Eosinophils/100 WBC (Bld) 2.7 % Normal 0.0-6.0 [facility] Comment on above: Performed By: #### L [id number] #### [facility] ([facility]) [address] [place] [address] Erythrocyte distribution width (RBC) [Ratio] 14.3 % Normal 11.5-15.0 [facility] Comment on above: Performed By: #### L [id number] #### [facility] ([facility]) [address] [place] [address] ERYTHROCYTE MEAN CORPUSCULAR HEMOGLOBIN CONCENTRATION (G/DL) BY AUTOMATED 32.6 g/dL Normal 32.0-35.0 [facility] Comment on above: Performed By: #### L [id number] #### [facility] ([facility]) [address] [place] [address] Hematocrit (Bld) [Volume fraction] 38.3 % Normal 36.0-48.0 [facility] Comment on above: Performed By: #### L [id number] #### [facility] ([facility]) [address] [place] [address] Hemoglobin (Bld) [Mass/Vol] 12.5 g/dL Normal 12.0-15.0 [facility] Comment on above: Performed By: #### L [id number] #### [facility] ([facility]) [address] [place] [address] Immature granulocytes (Bld) [#/Vol] 0.10 10*3/uL Normal 0.00-0.20 [facility] Comment on above: Performed By: #### L [id number] #### [facility] ([facility]) [address] [place] [address] Immature granulocytes/100 WBC (Bld) 1.3 % High 0.0-1.0 [facility] Comment on above: Performed By: #### L [id number] #### [facility] ([facility]) [address] [place] [address] Lymphocytes (Bld) [#/Vol] 1.37 10*3/uL Normal 1.20-4.00 [facility] Comment on above: Performed By: #### L [id number] #### [facility] ([facility]) [address] [place] [address] Lymphocytes/100 WBC (Bld) 17.4 % Low 20.0-45.0 [facility] Comment on above: Performed By: #### L [id number] #### [facility] [address] [place] [address] MCH (RBC) [Entitic mass] 28.9 pg Normal 27.0-33.0 [facility] Comment on above: Performed By: #### L [id number] #### [facility] ([facility]) [address] [place] [address] MCV (RBC) [Entitic vol] 88.5 fL Normal 82.0-98.0 [facility] Comment on above: Performed By: #### L [id number] #### [facility] ([facility]) [address] [place] [address] Monocytes (Bld) [#/Vol] 0.44 10*3/uL Normal 0.10-1.00 [facility] Comment on above: Performed By: #### L [id number] #### [facility] [address] [place] [address] Monocytes/100 WBC (Bld) 5.6 % Normal 5.0-12.0 [facility] Comment on above: Performed By: #### L [id number] #### [facility] [address] [place] [address] Neutrophils (Bld) [#/Vol] 5.69 10*3/uL Normal 1.60-7.60 [facility] Comment on above: Performed By: #### L [id number] #### [facility] [address] [place] [address] Neutrophils/100 WBC (Bld) 72.4 % High 40.0-72.0 [facility] Comment on above: Performed By: #### L [id number] #### [facility] [address] [place] [address] NRBC (PER 100 WBCS) BY AUTOMATED COUNT 0.0 % Normal 0 [facility] Comment on above: Performed By: #### L [id number] #### [facility] ([facility]) [address] [place] [address] PLATELETS (10*3/UL) IN BLOOD AUTOMATED COUNT 349 10*3/uL Normal 150-400 [facility] Comment on above: Performed By: #### L [id number] #### [facility] ([facility]) [address] [place] [address] RBC (Bld) [#/Vol] 4.33 10*6/uL Normal 3.80-5.00 [facility] Comment on above: Performed By: #### L [id number] #### [facility] ([facility]) [address] [place] [address] WBC (Bld) [#/Vol] 7.86 10*3/uL Normal 4.00-10.60 [facility] Comment on above: Performed By: #### L [id number] #### [facility] ([facility]) [address] [place] [address] HEPATIC FUNCTION PANELon Albumin [Mass/Vol] 4.4 g/dL Normal 3.5-5.7 [facility] Comment on above: Performed By: #### L [id number] #### [facility] ([facility]) [address] [place] [address] ALP [Catalytic activity/Vol] 83 U/L Normal 34-104 [facility] Comment on above: Performed By: #### L [id number] #### [facility] ([facility]) [address] [place] [address] ALT [Catalytic activity/Vol] 25 U/L Normal 7-52 [facility] Comment on above: Performed By: #### L [id number] #### [facility] ([facility]) [address] [place] [address] AST [Catalytic activity/Vol] 21 U/L Normal 13-39 [facility] Comment on above: Performed By: #### L [id number] #### [facility] ([facility]) [address] [place] [address] Bilirubin [Mass/Vol] 0.4 mg/dL Normal 0.3-1.0 [facility] Comment on above: Performed By: #### L [id number] #### [facility] ([facility]) [address] [place] [address] Magnesium [Mass/Vol] 0.1 mg/dL Normal 0-0.2 [facility] Comment on above: Performed By: #### L [id number] #### [facility] ([facility]) [address] [place] [address] Protein [Mass/Vol] 7.3 g/dL Normal 6.0-8.3 [facility] Comment on above: Performed By: #### L [id number] #### [facility] ([facility]) [address] [place] [address] Labon 07-17-2023 Lab [id number] Khushi,Brand i 1975 Date Provider Department Center 07/17/2023 2245-[facility] LAB RESOURCE [facility] Family History Problem Relation Age of Onset Fibromyalgia Mother Heart disease Father Hypertension Sister Polycystic kidney disease Sister Hypertension Brother Polycystic kidney disease Brother Family Status - Relation Status Age at Mother Father Sister Brother Normal [facility] MAGNESIUMon 07-17-2023 Magnesium [Mass/Vol] 1.6 mg/dL Low 1.9-2.7 [facility] Comment on above: Performed By: #### L [id number] #### [facility] ([facility]) [address] [place] [address] Orders Onlyon 07-17-2023 Orders Only [id number] Khushi,Brand i 1975 Provider Department Center 07/17/2023 1971-[facility] TXP None Family History Problem Relation Age of Onset Fibromyalgia Mother Heart disease Father Hypertension Sister Polycystic kidney disease Sister Hypertension Brother Polycystic kidney disease Brother Family Status - Relation Status Age at Mother Father Sister Brother Normal [facility] PHOSPHORUSon 07-17-2023 Magnesium [Mass/Vol] 3.3 mg/dL Normal 2.5-5.0 [facility] Comment on above: Performed By: #### L [id number] #### [facility] ([facility]) [address] [place] [address] TACROLIMUS LEVELon Tacrolimus (Bld) [Mass/Vol] 6.5 ng/mL Normal 5.0-20.0 [facility] Comment on above: Result Comment: The [employer] Tacrolimus assay is a delayed one-step immunoassay for the quantitative determination of tacrolimus in human whole blood using the chemiluminescent microparticle immunoassay (CMIA) technology with flexible assay protocols, referred to as Chemiflex. Performed By: #### L [id number] #### [facility] ([facility]) [address] [place] [address] URIC ACIDon 07-17-2023 Magnesium [Mass/Vol] 4.9 mg/dL Normal 2.3-6.6 [facility] Comment on above: Performed By: #### L [id number] #### [facility] ([facility]) [address] [place] [address] 29on 07-16-2023 29 Addended by: LU STEPHENS on: 07/16/2023 03:23 PM Modules accepted: Orders Normal [facility] Documentationon 07-16-2023 Documentation [id number] Antonio Puri i 1975 F Date Provider Department Center 07/16/2023 1971-[facility] TXP None Family History Problem Relation Age of Onset Fibromyalgia Mother Heart disease Father Hypertension Sister Polycystic kidney disease Sister Hypertension Brother Polycystic kidney disease Brother Family Status - Relation Status Age at Mother Father Sister Brother Reason for Visit and Comments: Kidney Follow-up [] [facility] BASIC METABOLIC PANELon 06-07 Anion gap [Moles/Vol] 13 mmol/L Normal 7-20 [facility] Comment on above: Performed By: #### L [id number] #### [facility] ([facility]) [address] [place] [address] Calcium [Mass/Vol] 9.6 mg/dL Normal 8.6-10.3 [facility] Comment on above: Performed By: #### L [id number] #### [facility] ([facility]) [address] [place] [address] Chloride [Moles/Vol] 102 mmol/L Normal 98-107 [facility] Comment on above: Performed By: #### L [id number] #### [facility] ([facility]) [address] [place] [address] CO2 [Moles/Vol] 25 mmol/L Normal 21-31 [facility] Comment on above: Performed By: #### L [id number] #### [facility] ([facility]) [address] [place] [address] Creatinine [Mass/Vol] 1.26 mg/dL High 0.60-1.20 [facility] Comment on above: Performed By: #### L [id number] #### [facility] ([facility]) [address] [place] [address] GLOMERULAR FILTRATION RATE ML/MIN/1.73 SQ M.PREDICTED 53.0 mL/min/1.73m*2 Low >60.0 [facility] Comment on above: Result Comment: [facility]???s estimated glomerular filtration rate (eGFR) will [...] individuals. Performed By: #### L [id number] #### [facility] ([facility]) [address] [place] [address] Glucose [Mass/Vol] 128 mg/dL High 70-100 [facility] Comment on above: Performed By: #### L [id number] #### [facility] ([facility]) [address] [place] [address] Potassium [Moles/Vol] 3.1 mmol/L Low 3.5-5.1 [facility] Comment on above: Performed By: #### L [id number] #### [facility] ([facility]) [address] [place] [address] Sodium [Moles/Vol] 137 mmol/L Normal 136-145 [facility] Comment on above: Performed By: #### L [id number] #### [facility] ([facility]) [address] [place] [address] Urea nitrogen [Mass/Vol] 14 mg/dL Normal 7-25 [facility] Comment on above: Performed By: #### L [id number] #### [facility] ([facility]) [address] [place] [address] UREA NITROGEN/CREATININE (MASS RATIO) IN SER/PLAS 11.1 Normal [facility] Comment on above: Performed By: #### L [id number] #### [facility] ([facility]) [address] [place] [address] CBC WITH AUTO DIFFERENTIALon 06-28-2023 Basophils (Bld) [#/Vol] 0.06 10*3/uL Normal 0.00-0.20 [facility] Comment on above: Performed By: #### L [id number] #### [facility] ([facility]) [address] [place] [address] Basophils/100 WBC (Bld) 0.6 % Normal 0.0-1.0 [facility] Comment on above: Performed By: #### L [id number] #### [facility] ([facility]) [address] [place] [address] Eosinophils (Bld) [#/Vol] 0.18 10*3/uL Normal 0.00-0.50 [facility] Comment on above: Performed By: #### L [id number] #### [facility] ([facility]) [address] [place] [address] Eosinophils/100 WBC (Bld) 1.8 % Normal 0.0-6.0 [facility] Comment on above: Performed By: #### L [id number] #### [facility] ([facility]) [address] [place] [address] Erythrocyte distribution width (RBC) [Ratio] 14.5 % Normal 11.5-15.0 [facility] Comment on above: Performed By: #### L [id number] #### [facility] ([facility]AK[facility]) [address] [place] [address] ERYTHROCYTE MEAN CORPUSCULAR HEMOGLOBIN CONCENTRATION (G/DL) BY AUTOMATED 33.1 g/dL Normal 32.0-35.0 [facility] Comment on above: Performed By: #### L [id number] #### [facility] ([facility]) [address] [place] [address] Hematocrit (Bld) [Volume fraction] 40.5 % Normal 36.0-48.0 [facility] Comment on above: Performed By: #### L [id number] #### [facility] (BE[facility]) [address] [place] [address] Hemoglobin (Bld) [Mass/Vol] 13.4 g/dL Normal 12.0-15.0 [facility] Comment on above: Performed By: #### L [id number] #### [facility] ([facility]) [address] [place] [address] Immature granulocytes (Bld) [#/Vol] 0.13 10*3/uL Normal 0.00-0.20 [facility] Comment on above: Performed By: #### L [id number] #### [facility] ([facility]) [address] [place] [address] Immature granulocytes/100 WBC (Bld) 1.3 % High 0.0-1.0 [facility] Comment on above: Performed By: #### L [id number] #### [facility] ([facility]) [address] [place] [address] Lymphocytes (Bld) [#/Vol] 1.30 10*3/uL Normal 1.20-4.00 [facility] Comment on above: Performed By: #### L [id number] #### [facility] ([facility]) [address] [place] [address] Lymphocytes/100 WBC (Bld) 13.3 % Low 20.0-45.0 [facility] Comment on above: Performed By: #### L [id number] #### [facility] [address] [place] [address] MCH (RBC) [Entitic mass] 29.2 pg Normal 27.0-33.0 [facility] Comment on above: Performed By: #### L [id number] #### [facility] [address] [place] [address] MCV (RBC) [Entitic vol] 88.2 fL Normal 82.0-98.0 [facility] Comment on above: Performed By: #### L [id number] #### [facility] ([facility]) [address] [place] [address] Monocytes (Bld) [#/Vol] 0.51 10*3/uL Normal 0.10-1.00 [facility] Comment on above: Performed By: #### L [id number] #### [facility] ([facility]) [address] [place] [address] Monocytes/100 WBC (Bld) 5.2 % Normal 5.0-12.0 [facility] Comment on above: Performed By: #### L [id number] #### [facility] ([facility]) [address] [place] [address] Neutrophils (Bld) [#/Vol] 7.62 10*3/uL High 1.60-7.60 [facility] Comment on above: Performed By: #### L [id number] #### [facility] ([facility]) [address] [place] [address] Neutrophils/100 WBC (Bld) 77.8 % High 40.0-72.0 [facility] Comment on above: Performed By: #### L [id number] #### [facility] [address] [place] [address] NRBC (PER 100 WBCS) BY AUTOMATED COUNT 0.0 % Normal 0 [facility] Comment on above: Performed By: #### L [id number] #### [facility] ([facility]) [address] [place] [address] PLATELETS (10*3/UL) IN BLOOD AUTOMATED COUNT 334 10*3/uL Normal 150-400 [facility] Comment on above: Performed By: #### L [id number] #### [facility] ([facility]) [address] [place] [address] RBC (Bld) [#/Vol] 4.59 10*6/uL Normal 3.80-5.00 [facility] Comment on above: Performed By: #### L [id number] #### [facility] ([facility]) [address] [address] WBC (Bld) [#/Vol] 9.80 10*3/uL Normal 4.00-10.60 [facility] Comment on above: Performed By: #### L [id number] #### [facility] ([facility]) [address] [address] HEPATIC FUNCTION PANELon Albumin [Mass/Vol] 4.7 g/dL Normal 3.5-5.7 [facility] Comment on above: Performed By: #### L [id number] #### [facility] ([facility]) [address] [place] [address] ALP [Catalytic activity/Vol] 91 U/L Normal 34-104 [facility] Comment on above: Performed By: #### L [id number] #### [facility] ([facility]) [address] [place] [address] ALT [Catalytic activity/Vol] 29 U/L Normal 7-52 [facility] Comment on above: Performed By: #### L [id number] #### [facility] ([facility]) [address] [place] [address] AST [Catalytic activity/Vol] 25 U/L Normal 13-39 [facility] Comment on above: Performed By: #### L [id number] #### [facility] ([facility]) [address] [place] [address] Bilirubin [Mass/Vol] 0.5 mg/dL Normal 0.3-1.0 [facility] Comment on above: Performed By: #### L [id number] #### [facility] ([facility]) [address] [place] [address] Magnesium [Mass/Vol] 0.1 mg/dL Normal 0-0.2 [facility] Comment on above: Performed By: #### L [id number] #### [facility] ([facility]) [address] [place] [address] Protein [Mass/Vol] 7.9 g/dL Normal 6.0-8.3 [facility] Comment on above: Performed By: #### L [id number] #### [facility] ([facility]) [address] [place] [address] LIPID PANELon 06-28-2023 CHOL/HDL 4.1 mg/dL Normal [facility] Comment on above: Performed By: #### L [id number] #### [facility] ([facility]) [address] [place] [address] Cholesterol [Mass/Vol] 192 mg/dL Normal 120-200 [facility] Comment on above: Performed By: #### L [id number] #### [facility] ([facility]) [address] [place] [address] Magnesium [Mass/Vol] 228 mg/dL High 40-149 [facility] Comment on above: Result Comment: TRIG LYCERIDE REFERENCE RANGE: 20 YEARS AND OLDER CARDIOVASCULAR RISK LESS THAN 150 mg/dL LOW RISK 150 TO 199 mg/dL BORDERLINE RISK 200 mg/dL AND GREATER HIGH RISK Performed By: #### L [id number] #### [facility] ([facility]) [address] [place] [address] Magnesium [Mass/Vol] 99 mg/dL Normal 0-160 [facility] Comment on above: Performed By: #### L [id number] #### [facility] ([facility]) [address] [place] [address] Magnesium [Mass/Vol] 47 mg/dL Normal 23-92 [facility] Comment on above: Performed By: #### L [id number] #### [facility] ([facility]) [address] [place] [place] [address] NON HDL CHOL. (LDL+VLDL) 145 Normal [facility] Comment on above: Performed By: #### L [id number] #### [facility] ([facility]) [address] [place] [address] TOTAL VLDL-C 46 mg/dL High 0-40 [facility] Comment on above: Performed By: #### L [id number] #### [facility] [address] [place] [address] Labon 06-28-2023 Lab [id number] Antonio Puri i 1975 F Date Provider Department Center 06/28/2023 2245-[facility] LAB RESOURCE [facility] Family History Problem Relation Age of Onset Fibromyalgia Mother Heart disease Father Hypertension Sister Polycystic kidney disease Sister Hypertension Brother Polycystic kidney disease Brother Family Status - Relation Status Age at Mother Father Sister Brother Normal [facility] MAGNESIUMon 06-28-2023 Magnesium [Mass/Vol] 1.4 mg/dL Low 1.9-2.7 [facility] Comment on above: Performed By: #### L [id number] #### [facility] [address] [place] [address] PHOSPHORUSon 06-28-2023 Magnesium [Mass/Vol] 2.7 mg/dL Normal 2.5-5.0 [facility] Comment on above: Performed By: #### L [id number] #### [facility] ([facility]) [address] [place] [address] TACROLIMUS LEVELon Tacrolimus (Bld) [Mass/Vol] 6.9 ng/mL Normal 5.0-20.0 [facility] Comment on above: Result Comment: The [employer]IAN Tacrolimus assay is a delayed one-step immunoassay for the quantitative determination of tacrolimus in human whole blood using the chemiluminescent microparticle immunoassay (CMIA) technology with flexible assay protocols, referred to as Chemiflex. Performed By: #### L [id number] #### [facility] ([facility]) [address] [place] [address] URIC ACIDon 06-28-2023 Magnesium [Mass/Vol] 5.0 mg/dL Normal 2.3-6.6 [facility] Comment on above: Performed By: #### L [id number] #### [facility] ([facility]) [address] [place] [address] 36on 06-23-2023 36 I reviewed the case with the resident. I agree with the assessment and plan as documented in the resident's note. Ming Kidd, PharmD, BCTXP [facility] PTH INTACTon 07-30-2022 PTH, Intact 107 pg/mL Critically high 15-65 [facility] Comment on above: Performed By: #### M Edy URIC, RENAL #### [facility] [address] [place] [address] Dr. Hari Palmer FERRITINon 07-29-2022 Ferritin [Mass/Vol] 194.0 ng/mL Critically high 6.2-137.0 [facility] Comment on above: Performed By: #### M JUDIE Snow, RENAL #### [facility] [address] [place] [address] Dr. Hari Palmer HEMOGRAM AND PLATELon 2021 Hematocrit (Bld) [Volume fraction] 32.8 % Critically low 36.0-48.0 [facility] Comment on above: Performed By: #### M Edy URIC, RENAL #### [facility] [address] [place] [address] Dr. Hari Palmer Hemoglobin (Bld) [Mass/Vol] 10.8 g/dL Critically low 12.0-16.0 [facility] Comment on above: Performed By: #### M Edy URIC, RENAL #### [facility] [address] [place] [address] Dr. Hari Palmer MCH (RBC) [Entitic mass] 31.7 pg Normal 26.7-34.0 [facility] Comment on above: Performed By: #### M Edy URIC, RENAL #### [facility] [address] [address] [address] Hari Palmer MCHC (RBC) [Mass/Vol] 32.9 g/dL Normal 29.9-35.2 [facility] Comment on above: Performed By: #### M G, URIC, RENAL #### [facility] [address] [address] [address] Hari Palmer MCV (RBC) [Entitic vol] 96.2 fL Normal 81.0-99.0 [facility] Comment on above: Performed By: #### M G, URIC, RENAL #### [facility] [address] [address] [address] Hari Palmer PLT 297 103/ul Normal 150-450 [facility] Comment on above: Performed By: #### M G, URIC, RENAL #### [facility] [address] [address] [address] Hari Palmer RBC 3.41 106/ul Critically low 4.20-5.40 [facility] Comment on above: Performed By: #### M G, URIC, RENAL #### [facility] [address] [address] [address] Hari Palmer WBC 7.1 103/ul Normal 4.0-11.0 [facility] Comment on above: Performed By: #### M G, URIC, RENAL #### [facility] [address] [address] [address] Hari Palmer IRON AND TIBCon 07-29-2022 % SATURATION 19.0 % Normal [facility] Comment on above: Performed By: #### M G, URIC, RENAL #### [facility] [address] [address] [address] Hari Palmer Iron [Mass/Vol] 48.0 ug/dL Critically low 50.0-170.0 [facility] Comment on above: Performed By: #### M G, URIC, RENAL #### [facility] [address] [address] [address] Hari Palmer TIBC DIRECT 252.0 ug/dL Normal 250.0-450.0 [facility] Comment on above: Performed By: #### M G, URIC, RENAL #### [facility] [address] [address] [address] Hari Palmer MAGNESIUMon 07-29-2022 Magnesium [Mass/Vol] 2.0 mg/dL Normal 1.8-2.4 [facility] Comment on above: Performed By: #### M G, URIC, RENAL #### [facility] [address] [place] [address] Dr. Hari Palmer RENAL FUNCTION PANELon 07-29 Albumin [Mass/Vol] 3.6 g/dL Normal 3.4-5.0 [facility] Comment on above: Performed By: #### M G, URIC, RENAL #### [facility] [address] [place] [address] Dr. Hari Palmer Calcium [Mass/Vol] 8.7 mg/dL Normal 8.5-10.1 [facility] Comment on above: Performed By: #### M G, URIC, RENAL #### [facility] [address] [place] [address] Dr. Hari Palmer Chloride [Moles/Vol] 104 mmol/L Normal 98-107 [facility] Comment on above: Performed By: #### M G, URIC, RENAL #### [facility] [address] [place] [address] Dr. Hari Palmer CO2 [Moles/Vol] 21.8 mmol/L Normal 21.0-32.0 [facility] Comment on above: Performed By: #### M G, URIC, RENAL #### [facility] [address] [place] [address] Dr. Hari Palmer Creatinine [Mass/Vol] 3.83 mg/dL Critically high 0.55-1.02 [facility] Comment on above: Performed By: #### M G, URIC, RENAL #### [facility] [address] [place] [address] Dr. Hari Palmer EGFR-AF MONGOLIAN 15 mL/min/1.73m2 Critically low >=60 [facility] Comment on above: Performed By: #### M G, URIC, RENAL #### [facility] [address] [address] [address] Hari Palmer EGFR-NON AF MONGOLIAN 13 mL/min/1.73m2 Critically low >=60 [facility] Comment on above: Performed By: #### M G, URIC, RENAL #### [facility] [address] [address] [address] Hari Palmer Glucose [Mass/Vol] 108 mg/dL Critically high 74-106 [facility] Comment on above: Performed By: #### M G, URIC, RENAL #### [facility] [address] [place] [address] Dr. Hari Palmer Phosphate [Mass/Vol] 5.4 mg/dL Critically high 2.6-4.7 [facility] Comment on above: Performed By: #### M G, URIC, RENAL #### [facility] [address] [place] [address] Dr. Hari Palmer Potassium [Moles/Vol] 3.9 mmol/L Normal 3.5-5.1 [facility] Comment on above: Performed By: #### M G, URIC, RENAL #### [facility] [address] [address] [address] Hari Palmer Sodium [Moles/Vol] 137 mmol/L Normal 136-145 [facility] Comment on above: Performed By: #### M G, URIC, RENAL #### [facility] [address] [address] [address] Hari Palmer Urea nitrogen [Mass/Vol] 47.0 mg/dL Critically high 7.0-18.0 [facility] Comment on above: Performed By: #### M G, URIC, RENAL #### [facility] [address] [address] [address] Hari Palmer URIC ACID SERUMon 07-29-2022 Urate [Mass/Vol] 6.3 mg/dL Critically high 2.6-6.0 [facility] Comment on above: Performed By: #### M G, URIC, RENAL #### [facility] [address] [place] [address] Dr. Hari Palmer URINE T PROTEIN CREAT RATIOo n 07-29-2022 Protein (U) [Mass/Vol] 29.7 mg/dL Critically high <=12.0 [facility] Comment on above: Performed By: #### M Edy, URIC, RENAL #### [facility] [address] [address] [address] Hari Palmer UR PROT CREAT RAT 0.56 Normal [facility] Comment on above: Performed By: #### M Edy, URIC, RENAL #### [facility] [address] [address] [address] Hari Palmer URINE CREAT 53.35 mg/dL Normal 20.00-300.00 [facility] Comment on above: Performed By: #### M Edy, URIC, RENAL #### [facility] [address] [address] [address] Hari Palmer VITAMIN D 25 OHon 07-29-2022 VIT D 25-OH 38.8 ng/mL Normal [facility] Comment on above: Performed By: #### M Edy, URIC, RENAL #### [facility] [address] [address] [address] Hari Palmer VIT D RANGES SEE BELOW Normal [facility] Comment on above: Result Comment: <20 ng/mL Vit D deficient 20 - <30 ng/mL Vit D insufficient 30 - 100 ng/mL Vit D sufficient >100 ng/mL Potential Toxicity Performed By: #### M Edy, JUDIE, RENAL #### [facility] [address] [address] [address] Hari Palmer Albumin [Mass/volume] in Ser um or PlasmaOrdered By: Stanley Forman on 06-20-2022 Albumin [Mass/Vol] 3.9 g/dL 3.2-5.5 [facility] Basophils Auto (Bld) [#/Vol] Ordered By: Stanley Forman on 06-20-2022 Basophils (Bld) [#/Vol] 0.1 10*3/uL 0.0-0.2 [facility] Basophils/100 WBC Auto (Bld) Ordered By: Stanley Forman on 06-20-2022 Basophils/100 WBC (Bld) 0.7 % . [facility] Blood hemoglobin measurement (mass/volume)Ordered By: Stanley Forman on 06-20-2022 Hemoglobin (Bld) [Mass/Vol] 10.8 g/dL 11.8-15.4 [facility] Blood leukocytes automated c ount (number/volume)Ordered By: Stanley Forman on 06-20-2022 WBC (Bld) [#/Vol] 11.8 10*3/uL 4.5-11.0 [facility] C reactive protein [Mass/vol ume] in Serum or PlasmaOrdered By: Stanley Forman on 06-20-2022 CRP [Mass/Vol] 5.2 mg/dL 0.0-1.0 [facility] Creatinine and Glomerular fi ltration rate.predicted panel (S/P/Bld)Ordered By: Stanley Forman on 06-20-2022 Creatinine [Mass/Vol] 4.49 mg/dL 0.44-1.03 [facility] Eosinophils Auto (Bld) [#/Vo l]Ordered By: Stanley Forman on 06-20-2022 Eosinophils (Bld) [#/Vol] 0.4 10*3/uL 0.0-0.45 [facility] Eosinophils/100 WBC Auto (Bl d)Ordered By: Stanley Forman on 06-20-2022 Eosinophils/100 WBC (Bld) 3.2 % . [facility] Erythrocyte distribution wid th Auto (RBC) [Ratio]Ordered By: Stanley Forman on 06-20-2022 Erythrocyte distribution width (RBC) [Ratio] 14.0 % 11.9-15.3 [facility] Erythrocyte sedimentation ra te by Photometric methodOrdered By: Stanley Forman on 06-20-2022 ESR Photometric method (Bld) [Velocity] 67 mm/hr 0-19 [facility] Estimated glomerular filtrat ion rate (GFR) non- AmericanOrdered By: Stanley Forman on 06-20-2022 GFR/1.73 sq M.predicted among non-blacks MDRD (S/P/Bld) [Vol rate/Area] 11 mL/Min [facility] Globulin Calc (S) [Mass/Vol] Ordered By: Stanley Forman on 06-20-2022 Globulin (S) [Mass/Vol] 3.5 g/dL [facility] Hematocrit Auto (Bld) [Volum e fraction]Ordered By: Stanley Forman on 06-20-2022 Hematocrit (Bld) [Volume fraction] 33.1 % 34.0-46.4 [facility] - Hematology and Cell countsOrdered By: Stanley Forman on 06-20-2022 Nucleated RBC/100 WBC (Bld) [Ratio] 0.0 % 0-0.5 [facility] Lymphocytes Auto (Bld) [#/Vo l]Ordered By: Stanley Forman on 06-20-2022 Lymphocytes (Bld) [#/Vol] 1.5 10*3/uL 1.00-4.8 [facility] Lymphocytes/100 WBC Auto (Bl d)Ordered By: Stanley Forman on 06-20-2022 Lymphocytes/100 WBC (Bld) 12.3 % . [facility] MCH Auto (RBC) [Entitic mass ]Ordered By: Stanley Forman on 06-20-2022 MCH (RBC) [Entitic mass] 31.1 pg 24.7-34.3 [facility] MCHC Auto (RBC) [Mass/Vol]Or dered By: Stanley Forman on 06-20-2022 MCHC (RBC) [Mass/Vol] 32.5 g/dL 32.0-35.0 [facility] MCV Auto (RBC) [Entitic vol] Ordered By: Stanley Forman on 06-20-2022 MCV (RBC) [Entitic vol] 95.6 fL 80-100 [facility] Monocytes Auto (Bld) [#/Vol] Ordered By: Stanley Forman on 06-20-2022 Monocytes (Bld) [#/Vol] 0.5 10*3/uL 0.0-0.8 [facility] Monocytes/100 WBC Auto (Bld) Ordered By: Stanley Forman on 06-20-2022 Monocytes/100 WBC (Bld) 4.1 % . [facility] Neutrophils Auto (Bld) [#/Vo l]Ordered By: Stanley Forman on 06-20-2022 Neutrophils (Bld) [#/Vol] 9.4 10*3/uL 1.8-7.7 [facility] Neutrophils/100 WBC Auto (Bl d)Ordered By: Stanley Forman on 06-20-2022 Neutrophils/100 WBC (Bld) 79.7 % . [facility] No Panel InformationOrdered By: Stanley Forman on 06-20-2022 Estimated GFR () 13 mL/Min [facility] Comment on above: GFR estimated refere nce range: According to KDOQI guidelines, <60 ml/min/1.73m2 is sufficient to diagnose a patient with chronic kidney disease. Pharmacy Creatinine Clearance (Chem 16.48 [facility] Platelet mean volume Auto (B ld) [Entitic vol]Ordered By: Stanley Forman on 06-20-2022 Platelet mean volume (Bld) [Entitic vol] 7.0 fL 6.3-10.7 [facility] Platelets Auto (Bld) [#/Vol] Ordered By: Stanley Forman on 06-20-2022 Platelets (Bld) [#/Vol] 287 10*3/uL 150-450 [facility] Protein [Mass/volume] in Ser um or PlasmaOrdered By: Stanley Forman on 06-20-2022 Protein [Mass/Vol] 7.4 g/dL 6.1-7.9 [facility] RBC Auto (Bld) [#/Vol]Ordere d By: Stanley Forman on 06-20-2022 RBC (Bld) [#/Vol] 3.46 10*6/uL 3.60-5.00 [facility] Serum or plasma alanine cesar otransferase measurement without P-5'-P (enzymatic activiOrdered By: Stanley Forman on 06-20-2022 ALT No additional P-5'-P [Catalytic activity/Vol] 11 U/L 10-60 [facility] Serum or plasma albumin/glob ulin mass ratioOrdered By: Stanley Forman on 06-20-2022 Albumin/Globulin [Mass ratio] 1.1 {ratio} [facility] Serum or plasma alkaline gina sphatase measurement (enzymatic activity/volume)Ordered By: Stanley Forman on 06-20-2022 ALP [Catalytic activity/Vol] 82 U/L 32-92 [facility] Serum or plasma anion gap de terminationOrdered By: Stanley Forman on 06-20-2022 Anion gap [Moles/Vol] 16.2 mmol/L 6.0-15.0 [facility] Serum or plasma aspartate am inotransferase measurement (enzymatic activity/volume)Ordered By: Stanley Forman on 06-20-2022 AST [Catalytic activity/Vol] 15 U/L 10-42 [facility] Serum or plasma calcium ge urement (mass/volume)Ordered By: Stanley Forman on 06-20-2022 Calcium [Mass/Vol] 9.3 mg/dL 8.2-10.2 [facility] Serum or plasma chloride lee surement (moles/volume)Ordered By: Stanley Forman on 06-20-2022 Chloride [Moles/Vol] 103 mmol/L 95-114 [facility] Serum or plasma glucose ge urement (mass/volume)Ordered By: Stanley Forman on 06-20-2022 Glucose [Mass/Vol] 75 mg/dL 70-100 [facility] Comment on above: ADA recommended refe rence rangeRandom Glucose Reference Range is dependent on time and content of last meal. Glucose of more than 200 mg/dL in a nonstressed, ambulatory subject supports the diagnosis of Diabetes Mellitus. Serum or plasma potassium me asurement (moles/volume)Ordered By: Stanley Forman on 06-20-2022 Potassium [Moles/Vol] 4.3 mmol/L 3.5-5.1 [facility] Serum or plasma sodium measu rement (moles/volume)Ordered By: Stanley Forman on 06-20-2022 Sodium [Moles/Vol] 135 mmol/L 136-146 [facility] Serum or plasma total biliru bin measurement (mass/volume)Ordered By: Stanley Forman 06-20-2022 Bilirubin [Mass/Vol] 0.3 mg/dL 0.3-1.2 [facility] Serum or plasma total carbon dioxide measurement (moles/volume)Ordered By: Stanley Forman on 06-20-2022 CO2 [Moles/Vol] 20.1 mmol/L 22.0-30.0 [facility] Serum or plasma urea nitroge n measurement (mass/volume)Ordered By: Stanley Forman on 06-20-2022 Urea nitrogen [Mass/Vol] 42 mg/dL 06-28 [facility] COVID-19 Positive/NegativeOr dered By: Jesus Parham on 06-14-2022 SARS-CoV-2 (COVID-19) N gene AMBERLY+probe Ql (Resp) Negative Negative [facility] Comment on above: Testing for SARS-CoV -2 by RT-PCR This test was developed and its performance characteristics determined by [employer] (BD) and validated at the [facility]. This test has not been FDA [...] characteristics determined by [employer] (BD) and validated at the [facility]. This test has not been FDA [...] Antigen (CA) 125 10.8 U/mL Normal 0.0-38.1 [facility] Comment on above: Result Comment: [employer] Electrochemiluminescence Immunoassay (ECLIA) . Values obtained with different assay methods or kits cannot be used interchangeably. Results cannot be interpreted as absolute evidence of the presence or absence of malignant disease. Performed By: #### M G, URIC, RENAL #### [facility] [address] [address] [address] Hari Palmer CEAon 06-08-2022 CEA 0.9 ng/mL Normal 0.0-4.7 [facility] Comment on above: Result Comment: Nons mokers <3.9 Smokers <5.6 . [employer] Electrochemiluminescence Immunoassay (ECLIA) . Values obtained with different assay methods or kits cannot be used interchangeably. Results cannot be interpreted as absolute evidence of the presence or absence of malignant disease. Performed By: #### C EA. #### [facility] [address] [address] [address] Hari Palmer Basophils Auto (Bld) [#/Vol] Ordered By: Jesus Parham on 06-05-2022 Basophils (Bld) [#/Vol] 0.0 10*3/uL 0.0-0.2 [facility] Basophils/100 WBC Auto (Bld) Ordered By: Jesus Parham on 06-05-2022 Basophils/100 WBC (Bld) 0.3 % . [facility] Blood hemoglobin measurement (mass/volume)Ordered By: Jesus Parham on 06-05-2022 Hemoglobin (Bld) [Mass/Vol] 12.0 g/dL 11.8-15.4 [facility] Blood leukocytes automated c ount (number/volume)Ordered By: Jesus Parham on 06-05-2022 WBC (Bld) [#/Vol] 8.5 10*3/uL 4.5-11.0 [facility] Creatinine and Glomerular fi ltration rate.predicted panel (S/P/Bld)Ordered By: Jesus Parham on 06-05-2022 Creatinine [Mass/Vol] 3.52 mg/dL 0.44-1.03 [facility] Eosinophils Auto (Bld) [#/Vo l]Ordered By: Jesus Parham on 06-05-2022 Eosinophils (Bld) [#/Vol] 0.2 10*3/uL 0.0-0.45 [facility] Eosinophils/100 WBC Auto (Bl d)Ordered By: Jesus Parham on 06-05-2022 Eosinophils/100 WBC (Bld) 2.7 % . [facility] Erythrocyte distribution wid th Auto (RBC) [Ratio]Ordered By: Jesus Parham on 06-05-2022 Erythrocyte distribution width (RBC) [Ratio] 14.2 % 11.9-15.3 [facility] Estimated glomerular filtrat ion rate (GFR) non- AmericanOrdered By: Jesus Pahram on 06-05-2022 GFR/1.73 sq M.predicted among non-blacks MDRD (S/P/Bld) [Vol rate/Area] 14 mL/Min [facility] Hematocrit Auto (Bld) [Volum e fraction]Ordered By: Jesus Parham on 06-05-2022 Hematocrit (Bld) [Volume fraction] 35.8 % 34.0-46.4 [facility] - Hematology and Cell countsOrdered By: Jesus Parham on 06-05-2022 Nucleated RBC/100 WBC (Bld) [Ratio] 0.1 % 0-0.5 [facility] Lymphocytes Auto (Bld) [#/Vo l]Ordered By: Jesus Parham on 06-05-2022 Lymphocytes (Bld) [#/Vol] 1.6 10*3/uL 1.00-4.8 [facility] Lymphocytes/100 WBC Auto (Bl d)Ordered By: Jesus Parham on 06-05-2022 Lymphocytes/100 WBC (Bld) 19.3 % . [facility] MCH Auto (RBC) [Entitic mass ]Ordered By: Jesus Parham on 06-05-2022 MCH (RBC) [Entitic mass] 31.5 pg 24.7-34.3 [facility] MCHC Auto (RBC) [Mass/Vol]Or dered By: Jesus Parham on 06-05-2022 MCHC (RBC) [Mass/Vol] 33.3 g/dL 32.0-35.0 [facility] MCV Auto (RBC) [Entitic vol] Ordered By: Jesus Parham on 06-05-2022 MCV (RBC) [Entitic vol] 94.4 fL 80-100 [facility] Monocytes Auto (Bld) [#/Vol] Ordered By: Jesus Parham on 06-05-2022 Monocytes (Bld) [#/Vol] 0.3 10*3/uL 0.0-0.8 [facility] Monocytes/100 WBC Auto (Bld) Ordered By: Jesus Parham on 06-05-2022 Monocytes/100 WBC (Bld) 3.9 % . [facility] Neutrophils Auto (Bld) [#/Vo l]Ordered By: Jesus Parham on 06-05-2022 Neutrophils (Bld) [#/Vol] 6.2 10*3/uL 1.8-7.7 [facility] Neutrophils/100 WBC Auto (Bl d)Ordered By: Jesus Parham on 06-05-2022 Neutrophils/100 WBC (Bld) 73.8 % . [facility] No Panel InformationOrdered By: Jesus Parham on 06-05-2022 Estimated GFR () 17 mL/Min [facility] Comment on above: GFR estimated refere nce range: According to KDOQI guidelines, <60 ml/min/1.73m2 is sufficient to diagnose a patient with chronic kidney disease. Pharmacy Creatinine Clearance (Chem N/A [facility] Platelet mean volume Auto (B ld) [Entitic vol]Ordered By: Jesus Parham on 06-05-2022 Platelet mean volume (Bld) [Entitic vol] 7.3 fL 6.3-10.7 [facility] Platelets Auto (Bld) [#/Vol] Ordered By: Jesus Parham on 06-05-2022 Platelets (Bld) [#/Vol] 312 10*3/uL 150-450 [facility] RBC Auto (Bld) [#/Vol]Ordere d By: Jesus Parham on 06-05-2022 RBC (Bld) [#/Vol] 3.80 10*6/uL 3.60-5.00 [facility] Serum or plasma anion gap de terminationOrdered By: Jesus Parham on 06-05-2022 Anion gap [Moles/Vol] 15.1 mmol/L 6.0-15.0 [facility] Serum or plasma calcium ge urement (mass/volume)Ordered By: Jesus Parham on 06-05-2022 Calcium [Mass/Vol] 9.5 mg/dL 8.2-10.2 [facility] Serum or plasma chloride lee surement (moles/volume)Ordered By: Jesus Parham on 06-05-2022 Chloride [Moles/Vol] 106 mmol/L 95-114 [facility] Serum or plasma glucose ge urement (mass/volume)Ordered By: Jesus Parham on 06-05-2022 Glucose [Mass/Vol] 91 mg/dL 70-100 [facility] Comment on above: ADA recommended refe rence [...] on 06-05-2022 Potassium [Moles/Vol] 4.4 mmol/L 3.5-5.1 [facility] Serum or plasma sodium measu rement (moles/volume)Ordered By: Jesus Parham on 06-05-2022 Sodium [Moles/Vol] 137 mmol/L 136-146 [facility] Serum or plasma total carbon dioxide measurement (moles/volume)Ordered By: Jesus Parham on 06-05-2022 CO2 [Moles/Vol] 20.3 mmol/L 22.0-30.0 [facility] Serum or plasma urea nitroge n measurement (mass/volume)Ordered By: Jesus Parham on 06-05-2022 Urea nitrogen [Mass/Vol] 38 mg/dL 9- [facility] PTH INTACTon 04-29-2022 PTH, Intact 191 pg/mL Critically high 15-65 [facility] Comment on above: Performed By: #### M JUDIE Snow RENAL #### [facility] [address] [address] [address] Hari Palmer VIT D 25-OH [facility]on 2021 Vitamin D, 25-Hydroxy 33.6 ng/mL Normal 30.0-100.0 [facility] Comment on above: Result Comment: Ning min D deficiency has been defined by the [place] [employer] and an Endocrine Society practice guideline as a level of serum 25-OH vitamin D less than 20 ng/mL (1,2). The Endocrine Society went on to further define vitamin D insufficiency as a level between 21 and 29 ng/mL (2). 1. IOM ([place] [employer]). 2010. Dietary reference intakes for calcium and D. [place]: The National Academies Press. 2. Chantel MF, Landen BURGOS, Eliseo STEPHENS, et al. Evaluation, treatment, and prevention of vitamin D deficiency: an Endocrine Society clinical practice guideline. JCEM. 2010; 96(7):1911-30. Performed By: #### M JUDIE Snow RENAL #### [facility] [address] [address] [address] Hari Palmer ABO AND RH TYPEon 04-27-2022 ABO and Rh group Nom (Bld) ABO Rh Typing O Rh Positive Normal [facility] Comment on above: Performed By: #### M JUDIE Snow RENAL #### [facility] [address] [address] [address] Hari Palmer FERRITINon 04-27-2022 Ferritin [Mass/Vol] 273.0 ng/mL Critically high 6.2-137.0 [facility] Comment on above: Performed By: #### JUDIE Traore RENAL #### [facility] [address] [address] [address] Hari Palmer HEMOGRAM AND PLATELon 2021 Hematocrit (Bld) [Volume fraction] 33.9 % Critically low 36.0-48.0 [facility] Comment on above: Performed By: #### M G, URIC, RENAL #### [facility] [address] [place] [address] Dr. Hari Palmer Hemoglobin (Bld) [Mass/Vol] 11.4 g/dL Critically low 12.0-16.0 [facility] Comment on above: Performed By: #### M G, URIC, RENAL #### [facility] [address] [place] [address] Dr. Hari Palmer MCH (RBC) [Entitic mass] 31.7 pg Normal 26.7-34.0 [facility] Comment on above: Performed By: #### M G, URIC, RENAL #### [facility] [address] [place] [address] Dr. Hari Palmer MCHC (RBC) [Mass/Vol] 33.6 g/dL Normal 29.9-35.2 [facility] Comment on above: Performed By: #### M G, URIC, RENAL #### [facility] [address] [place] [address] Dr. Hari Palmer MCV (RBC) [Entitic vol] 94.2 fL Normal 81.0-99.0 [facility] Comment on above: Performed By: #### M G, URIC, RENAL #### [facility] [address] [place] [address] Dr. Hari Palmer PLT 333 103/ul Normal 150-450 [facility] Comment on above: Performed By: #### M G, URIC, RENAL #### [facility] [address] [place] [address] Dr. Hari Palmer RBC 3.60 106/ul Critically low 4.20-5.40 [facility] Comment on above: Performed By: #### M G, URIC, RENAL #### [facility] [address] [place] [address] Dr. Hari Palmer WBC 9.7 103/ul Normal 4.0-11.0 [facility] Comment on above: Performed By: #### M G, URIC, RENAL #### [facility] [address] [place] [address] Dr. Hari Palmer IRON AND TIBCon 04-27-2022 % SATURATION 20.1 % Normal [facility] Comment on above: Performed By: #### M G, URIC, RENAL #### [facility] [address] [place] [address] Dr. Hari Palmer Iron [Mass/Vol] 57.0 ug/dL Normal 50.0-170.0 [facility] Comment on above: Performed By: #### M G, URIC, RENAL #### [facility] [address] [place] [address] Dr. Hari Palmer TIBC DIRECT 283.0 ug/dL Normal 250.0-450.0 [facility] Comment on above: Performed By: #### M G, URIC, RENAL #### [facility] [address] [place] [address] Dr. Hari Palmer MAGNESIUMon 04-27-2022 Magnesium [Mass/Vol] 2.1 mg/dL Normal 1.8-2.4 [facility] Comment on above: Performed By: #### R ENAL, URIC, MG #### [facility] [address] [place] [address] Dr. Hari Palmer RENAL FUNCTION PANELon 04-27 Albumin [Mass/Vol] 3.6 g/dL Normal 3.4-5.0 [facility] Comment on above: Performed By: #### R ENAL, URIC, MG #### [facility] [address] [place] [address] Dr. Hari Palmer Calcium [Mass/Vol] 9.0 mg/dL Normal 8.5-10.1 [facility] Comment on above: Performed By: #### R ENAL, URIC, MG #### [facility] [address] [place] [address] Dr. Hari Palmer Chloride [Moles/Vol] 104 mmol/L Normal 98-107 [facility] Comment on above: Performed By: #### R ENAL, URIC, MG #### [facility] [address] [place] [address] Dr. Hari Palmer CO2 [Moles/Vol] 23.0 mmol/L Normal 21.0-32.0 [facility] Comment on above: Performed By: #### R ENAL, URIC, MG #### [facility] [address] [place] [address] Dr. Hari Palmer Creatinine [Mass/Vol] 3.38 mg/dL Critically high 0.55-1.02 [facility] Comment on above: Performed By: #### R ENAL, URIC, MG #### [facility] [address] [place] [address] Dr. Hari Palmer EGFR-AF MONGOLIAN 18 mL/min/1.73m2 Critically low >=60 [facility] Comment on above: Performed By: #### R ENAL, URIC, MG #### [facility] [address] [place] [address] Dr. Hari Palmer EGFR-NON AF MONGOLIAN 15 mL/min/1.73m2 Critically low >=60 [facility] Comment on above: Performed By: #### R ENAL, URIC, MG #### [facility] [address] [place] [address] Dr. Hari Palmer Glucose [Mass/Vol] 113 mg/dL Critically high 74-106 [facility] Comment on above: Performed By: #### R ENAL, URIC, MG #### [facility] [address] [place] [address] Dr. Hari Palmer Phosphate [Mass/Vol] 4.4 mg/dL Normal 2.6-4.7 [facility] Comment on above: Performed By: #### R ENAL, URIC, MG #### [facility] [address] [place] [address] Dr. Hari Palmer Potassium [Moles/Vol] 4.0 mmol/L Normal 3.5-5.1 [facility] Comment on above: Performed By: #### R ENAL, URIC, MG #### [facility] [address] [place] [address] Dr. Hari Palmer Sodium [Moles/Vol] 137 mmol/L Normal 136-145 [facility] Comment on above: Performed By: #### R ENAL, URIC, MG #### [facility] [address] [address] [address] Hari Palmer Urea nitrogen [Mass/Vol] 44.0 mg/dL Critically high 7.0-18.0 [facility] Comment on above: Performed By: #### R ENAL, URIC, MG #### [facility] [address] [place] [address] Dr. Hari Palmer URIC ACID SERUMon 04-27-2022 Urate [Mass/Vol] 6.6 mg/dL Critically high 2.6-6.0 [facility] Comment on above: Performed By: #### R ENAL, URIC, MG #### [facility] [address] [address] [address] Hari Palmer URINE T PROTEIN CREAT RATIOo n 04-27-2022 Protein (U) [Mass/Vol] 31.4 mg/dL Critically high <=12.0 [facility] Comment on above: Performed By: #### M G, URIC, RENAL #### [facility] [address] [place] [address] Dr. Hari Palmer UR PROT CREAT RAT 0.55 Normal [facility] Comment on above: Performed By: #### M G, URIC, RENAL #### [facility] [address] [place] [address] Dr. Hari Palmer URINE CREAT 57.50 mg/dL Normal 20.00-300.00 [facility] Comment on above: Performed By: #### M G, URIC, RENAL #### [facility] [address] [place] [address] Dr. Hari Palmer ECHOCARDIO M/2D COMPLETEon 0 03-29-2022 ECHOCARDIO M/2D COMPLETE Patient: MANDEEP PURI Exam Date: 03/29/2022 : 1975 Gender:F Ordering : HAIDER FRENCH M.D. Admission #: [id number] Family : Order #: [id number] CLICK HERE TO VIEW EXAM ECHOCARDIOGRAM REPORT [...] Area(A4C): 17.00 cm2 Left Atrium Systolic Volume(A2C): 77783 mm3 Left Atrium Systolic Volume(A4C): 56116 mm3 Mitral Valve MV E to A Ratio: 0.80 Deceleration Hidalgo: 3210 mm/s2 Mitral Valve A-Wave Peak Velocity: [...] M.D. on 04/01/2022 at 12:33 Normal [facility] COVID-19 SOFIAOrdered By: Mary Beth Jones on 03-28-2022 SARS-CoV+SARS-CoV-2 (COVID-19) Ag IA.rapid Ql (Resp) Negative Negative [facility] Comment on above: This is a duplicate Ada SARS Antigen (GLORIA) result to be used for statistical tracking purpose only. No Panel InformationOrdered By: Shabbir Jones on 03-28-2022 SARS Antigen (LFIA) [facility] BLOOD TYPE AND RHon 02-13-20 ABO INTERPRETATION O Normal [facility] Comment on above: Performed By: #### 3 1397, 65852, 79402, 56317, 28608 #### [facility] [address] [place] [address], [facility] RH INTERPRETATION Positive Normal [facility] Comment on above: Performed By: #### 3 1397, 16445, 54541, 35565, 50824 #### [facility] [address] [place] [address], [place] BNP (B-TYPE NATRIURETIC PEPT JOEL)on 02-12-2022 Natriuretic peptide B (Bld) [Mass/Vol] 10 pg/mL Normal 0-100 [facility] Comment on above: Result Comment: Give n the appropriate clinical setting a BNP result of >100 pg/mL indicates congestive heart failure. Performed By: #### 8 3553, 72214 #### [facility] [address] CBC W/DIFFon 02-12-2022 ABS IMM GRANS 0.2 10*3/uL Normal 0.0-0.2 [facility] Comment on above: Performed By: #### 3 1397, 14012, 91179, 93409, 93861 #### [facility] [address] [place] [address], [facility] ABS NEUTROPHILS 7.8 10*3/uL High 1.6-7.6 [facility] Comment on above: Performed By: #### 3 1397, 88070, 25210, 46467, 12318 #### [facility] [address] [place] [address], [facility] Basophils (Bld) [#/Vol] 0.1 10*3/uL Normal 0.0-0.2 [facility] Comment on above: Performed By: #### 3 1397, 44994, 98693, 44194, 66216 #### [facility] [address] [place] [address], [facility] Basophils/100 WBC (Bld) 0.6 % Normal 0.0-1.0 [facility] Comment on above: Performed By: #### 3 1397, 98223, 49814, 31941, 09436 #### [facility] [address] [place] [address], [facility] Eosinophils (Bld) [#/Vol] 0.3 10*3/uL Normal 0.0-0.5 [facility] Comment on above: Performed By: #### 3 1397, 84255, 20790, 47956, 22228 #### [facility] [address] [place] [address], [facility] Eosinophils/100 WBC (Bld) 2.5 % Normal 0.0-6.0 [facility] Comment on above: Performed By: #### 3 1397, 82881, 34456, 88235, 10845 #### [facility] [address] [place] [address], [facility] Erythrocyte distribution width (RBC) [Ratio] 13.6 % Normal 11.5-15.0 [facility] Comment on above: Performed By: #### 3 1397, 33570, 98054, 11438, 03848 #### [facility] [address] [place] [address], [facility] Hematocrit (Bld) [Volume fraction] 34.5 % Low 36.0-45.0 [facility] Comment on above: Performed By: #### 3 1397, 82290, 13631, 96293, 01181 #### [facility] [address] [place] [address], [facility] Hemoglobin (Bld) [Mass/Vol] 11.3 g/dL Low 12.0-15.0 [facility] Comment on above: Performed By: #### 3 1397, 62534, 96360, 49181, 47115 #### [facility] [address] [place] [address], [facility] IMMATURE GRANS 1.4 % High 0.0-1.0 [facility] Comment on above: Performed By: #### 3 1397, 36920, 24129, 13979, 62355 #### [facility] [address] [facility] [address] [place] [id number], [facility] Lymphocytes (Bld) [#/Vol] 2.0 10*3/uL Normal 1.2-4.0 [facility] Comment on above: Performed By: #### 3 1397, 29500, 37015, 72366, 54109 #### [facility] [address] [place] [id number], [facility] Lymphocytes/100 WBC (Bld) 18.6 % Low 20.0-45.0 [facility] Comment on above: Performed By: #### 3 1397, 62521, 17904, 28725, 12393 #### [facility] [address] [facility] [place] [address], [facility] MCH (RBC) [Entitic mass] 31.3 pg Normal 27.0-33.0 [facility] Comment on above: Performed By: #### 3 1397, 41702, 64006, 44227, 91517 #### [facility] [address] [place] [address], [facility] MCHC (RBC) [Mass/Vol] 32.8 g/dL Normal 32.0-35.0 [facility] Comment on above: Performed By: #### 3 1397, 03501, 30906, 08460, 43659 #### [facility] [address] [place] [address], [facility] MCV (RBC) [Entitic vol] 95.6 fL Normal 82.0-98.0 [facility] Comment on above: Performed By: #### 3 1397, 79323, 34621, 24869, 20009 #### [facility] [address] [place] [id number], [facility] Monocytes (Bld) [#/Vol] 0.5 10*3/uL Normal 0.1-1.0 [facility] Comment on above: Performed By: #### 3 1397, 02800, 11772, 51118, 29946 #### [facility] [address] [place] [address], [facility] MONOS 4.9 % Low 5.0-12.0 [facility] Comment on above: Performed By: #### 3 1397, 15184, 77201, 74312, 65875 #### [facility] [address] [place] [id number], [facility] Neutrophils/100 WBC (Bld) 72.0 % Normal 40.0-72.0 [facility] Comment on above: Performed By: #### 3 1397, 77812, 93017, 99604, 19859 #### [facility] [address] [place] [id number], [facility] Nucleated RBC/100 WBC (Bld) [Ratio] 0 % Normal 0-0 [facility] Comment on above: Performed By: #### 3 1397, 60388, 66673, 94014, 55789 #### [facility] [address] [facility] [place] [address], [facility] PLAT CNT 315 10*3/uL Normal 150-400 [facility] Comment on above: Performed By: #### 3 1397, 70498, 37519, 52939, 83718 #### [facility] [address] [facility] [place] [address], [facility] RBC (Bld) [#/Vol] 3.61 10*6/uL Low 3.80-5.00 [facility] Comment on above: Performed By: #### 3 1397, 39537, 94641, 74516, 19078 #### [facility] [address] [facility] [place] [address], [facility] WBC (Bld) [#/Vol] 10.78 10*3/uL High 4.00-10.60 [facility] Comment on above: Performed By: #### 3 1397, 65235, 29254, 66415, 60660 #### [facility] [address] CHEST AND LATERALon 02-13-20 CHEST AND LATERAL [facility] Department of Radiology [address] [place] [id number] Patient Name: MANDEEP PURI : 1975 [...] pathology. Electronically signed: Royal Dominguez. Transcribed by: [email or web address], User Resident: Electronically Signed by: ROYAL DOMINGUEZ @ 02/13/2022 11:48 AM Normal [facility] CMV IGG BLOODon 02-12-2022 CMV IGG 3.13 Normal [facility] Comment on above: Result Comment: NORM AL RANGES: < OR = 0.9O NEGATIVE ; NO DETECTABLE IgG ANTIBODY TO CMV 0.91 - 1.09 EQUIVOCAL; REPEAT TESTING SUGGESTED > OR = 1.10 POSITIVE ; INDICATES PRESENCE OF DETECTABLE IgG ANTIBODY TO CMV Performed By: #### 3 1397, 07031, 88794, 23297, 03639 #### [facility] [address] [place] [address], [facility] COMP METABOLIC PANELon 02-12 Albumin [Mass/Vol] 4.5 g/dL Normal 3.5-5.7 [facility] Comment on above: Performed By: #### 2 2505, 52702, 68297 #### [facility] [address] [place] [address], [place] ALKALINE PHOSPH 89 IU/L Normal 34-104 [facility] Comment on above: Performed By: #### 2 2505, 70432, 33748 #### [facility] [address] [place] [address], [place] ALT [Catalytic activity/Vol] 12 U/L Normal 7-52 [facility] Comment on above: Performed By: #### 2 2505, 49830, 70648 #### [facility] [address] [place] [address], [place] AST [Catalytic activity/Vol] 13 U/L Normal 13-39 [facility] Comment on above: Performed By: #### 2 2505, , 13155 #### [facility] [address] [place] [address], [place] Bilirubin [Mass/Vol] 0.3 mg/dL Normal 0.3-1.0 [facility] Comment on above: Performed By: #### 2 2505, 34110, 00871 #### [facility] [address] [place] [address], [place] Calcium [Mass/Vol] 9.5 mg/dL Normal 8.6-10.3 [facility] Comment on above: Performed By: #### 2 2505, 84584, 29109 #### [facility] [address] [place] [address], [place] Chloride [Moles/Vol] 103 mmol/L Normal 98-107 [facility] Comment on above: Performed By: #### 2 2505, 04692, 23683 #### [facility] [address] [place] [address], [place] CO2 [Moles/Vol] 22 mmol/L Normal 21-31 [facility] Comment on above: Performed By: #### 2 2505, 38273, 75951 #### [facility] [address] [place] [address], [place] Creatinine [Mass/Vol] 3.51 mg/dL High 0.60-1.20 [facility] Comment on above: Performed By: #### 2 2505, 15413, 73825 #### [facility] [address] [place] [address], [place] eGFR- 17 ml/min/1.73sq m Abnormal >60 [facility] Comment on above: Performed By: #### 2 2505, , 75110 #### [facility] [address] [place] [address], [place] eGFR- non- 14 ml/min/1.73sq m Abnormal >60 [facility] Comment on above: Performed By: #### 2 2505, , 68690 #### [facility] [address] [place] [address], [place] Glucose [Mass/Vol] 100 mg/dL Normal 70-100 [facility] Comment on above: Performed By: #### 2 2505, 91052, 73393 #### [facility] [address] [place] [address], [place] Potassium [Moles/Vol] 3.9 mmol/L Normal 3.5-5.1 [facility] Comment on above: Performed By: #### 2 2505, 86379, 75401 #### [facility] [address] [place] [address], [place] Protein [Mass/Vol] 8.0 g/dL Normal 6.0-8.3 [facility] Comment on above: Performed By: #### 2 2505, 96741, 41888 #### [facility] [address] [place] [address], [place] Sodium [Moles/Vol] 136 mmol/L Normal 136-145 [facility] Comment on above: Performed By: #### 2 2505, 83675, 62047 #### [facility] [address] Urea nitrogen [Mass/Vol] 41 mg/dL High 7-25 [facility] Comment on above: Performed By: #### 2 2505, 49686, 40220 #### [facility] [address] CREATININE URINE RANDOMon Creatinine (U) [Mass/Vol] 63.0 mg/dL Normal [facility] Comment on above: Result Comment: Ther e are no established reference values for random urine specimens Performed By: #### 3 1397, 26365, 59739, 10703, 64801 #### [facility] [address] RENAL RECIPIENT ABDOMEN A ND PEVLIS WO CONTRASTon 02-12-2022 CT RENAL RECIPIENT ABDOMEN AND PEVLIS WO CONTRAST [facility] Department of Radiology [address] [place] [id number] Patient Name: MANDEEP PURI : 1975 Sex: F Age: Race: White Pt. Location: 20 Patient Status: O Ordered Date: 02/12/2022 1:55:00 PM Completed Date: 02/12/2022 02:04 PM Requesting Provider: HAIDER FRENCH Attending Provider: HAIDER FRENCH Report Copy To: Signs & Symptoms: Z01.818 Encounter for other preprocedural examination I10 History: [place] Comments: , Pre-kidney transplant work-up. Please evaluate [...] achievable. Electronically signed: NAN SARAVIA. Transcribed by: [email or web address], User Resident: Electronically Signed by: NAN SARAVIA @ 02/12/2022 02:59 PM Normal [facility] Comment on above: Order Comment: , [...] Bilirubin.direct [Mass/Vol] 0.0 mg/dL Normal 0.0-0.2 [facility] Comment on above: Performed By: #### 2 2935, 54574, 08204 #### [facility] [address] [place] [address], [facility] BRETT LAGUERRE VIRUS ABon 05-1 EB VCA IGG 2.35 Normal [facility] Comment on above: Order Comment: CONSI STENT WITH PAST EBV INFECTION Result Comment: NORM AL RANGES: < OR = 0.9O NEGATIVE ; NO DETECTABLE IgG ANTIBODY TO EBV-VCA 0.91 - 1.09 EQUIVOCAL; REPEAT TESTING SUGGESTED > OR = 1.10 POSITIVE ; INDICATES PRESENCE OF DETECTABLE IgG ANTIBODY TO EBV Performed By: #### 3 1397, 31545, 00331, 78994, 17243 #### [facility] [address] [place] [address], [facility] EB VCA IGM 0.00 Normal [facility] Comment on above: Order Comment: CONSI STENT WITH PAST EBV INFECTION Result Comment: NORM AL RANGES: < OR = 0.9O NEGATIVE ; NO SIGNIFICANT LEVEL OF DETECTABLE EBV-VCA IgM AB 0.91 - 1.09 EQUIVOCAL; REPEAT TESTING SUGGESTED > OR = 1.10 POSITIVE ; SIGNIFICANT LEVEL OF DETECTABLE EBV-VCA IgM AB Performed By: #### 3 1397, 49443, 21403, 67933, 20312 #### [facility] [address] [facility] [address] HEMOGLOBIN A1Con 02-12-2022 Glucose [Moles/Vol] 120 mmol/L Normal [facility] Comment on above: Performed By: #### 8 5123, 48670 #### [facility] [address] [facility]. [address] HbA1c (Bld) [Mass fraction] 5.8 % Normal 4.0-6.0 [facility] Comment on above: Performed By: #### 8 5123, 32279 #### [facility] [address] [facility] [address] HEPATITIS A ANTIBODY IGMon 0 02-12-2022 HEP A AB IGM Non-Reactive Normal NONREACTIVE [facility] Comment on above: Performed By: #### 3 1397, 98219, 31806, 11829, 77454 #### [facility] [address] [facility] [address] HEPATITIS B CORE ANTIBODYon 02-12-2022 HEP B CORE AB Non-Reactive Normal NONREACTIVE [facility] Comment on above: Performed By: #### 3 1397, 30524, 54189, 93077, 86807 #### [facility] [address] [facility]. [address] HEPATITIS B SURFACE ANTIBODY QUANTon 02-12-2022 HEP B SURF AB 1.14 mIU/ml Normal [facility] Comment on above: Result Comment: INTE RPRETATION: NONREACTIVE<8.00 mIU/mL INDETERMINATE8.00 - 12.00 mIU/mL REACTIVE>12 mIU/mL Performed By: #### 3 1397, 58654, 40438, 77817, 37576 #### [facility] [address] HEPATITIS B SURFACE ANTIGEN QUALon 02-12-2022 HEP B SURF AG QUAL Non-Reactive Normal NONREACTIVE [facility] Comment on above: Performed By: #### 3 1397, 28996, 83284, 05852, 94934 #### [facility] [address] [place] [address], [facility] HEPATITIS C ANTIBODYon 02-12 ANTI-HCV Non-Reactive Normal NONREACTIVE [facility] Comment on above: Performed By: #### 3 1397, 83126, 58694, 56326, 40653 #### [facility] [address] HIV1 AND 2 COMBO 4Gon 2021 HIV COMBO Negative Normal NEGATIVE [facility] Comment on above: Performed By: #### 3 1397, 19620, 13324, 36457, 06953 #### [facility] [address] HLA ABC CLASS I TYPINGon A*-1 EQUIVALENT 1 Normal [facility] Comment on above: Order Comment: Some [...] to frequency. Performed By: #### 3 1397, 81448, 93672, 51848, 60137 #### [facility] [address] A*-2 EQUIVALENT 2 Normal [facility] Comment on above: Order Comment: Some [...] to frequency. Performed By: #### 3 1397, 90474, 15265, 05384, 76761 #### [facility] [address] [place] [address], [facility] B*-1 EQUIVALENT 35 Normal [facility] Comment on above: Order Comment: Some [...] to frequency. Performed By: #### 3 1397, 20725, 05268, 53594, 54770 #### [facility] [address] [facility] [place] [address], [place] B*-2 EQUIVALENT 37 Normal [facility] Comment on above: Order Comment: Some [...] to frequency. Performed By: #### 3 1397, 24502, 37356, 33136, 96014 #### [facility] [address] [place] [address], [place] Bw*-1 EQUIVALENT 4 Normal [facility] Comment on above: Order Comment: Some [...] to frequency. Performed By: #### 3 1397, 31975, 63363, 16159, 62065 #### [facility] [address] [place] [address], [facility] Bw*-2 EQUIVALENT 6 Normal [facility] Comment on above: Order Comment: Some [...] to frequency. Performed By: #### 3 1397, 38339, 69488, 82130, 92009 #### [facility] [address] [facility] [place] [address], [place] C*-1 EQUIVALENT 4 Normal [facility] Comment on above: Order Comment: Some [...] to frequency. Performed By: #### 3 1397, 73908, 76369, 01280, 19662 #### [facility] [address] [place] [address], [place] C*-2 EQUIVALENT 6 Normal [facility] Comment on above: Order Comment: Some [...] to frequency. Performed By: #### 3 1397, 39098, 13232, 60817, 37529 #### [facility]. [address] METHOD Class I Typing by PCR-SSOP Luminex Normal [facility] Comment on above: Order Comment: Some [...] to frequency. Performed By: #### 3 1397, 88736, 52303, 56258, 29762 #### [facility] [address] [facility]. [address] SIGNED BY Normal [facility] Comment on above: Order Comment: Some [...] to frequency. Result Comment: Sree Noriega, MS,CHT(DONA),MT(ASCP) Armature Bander, Transplant Immunology Performed By: #### 3 1397, 25900, 30828, 53618, 39875 #### [facility] [address] HLA [address] CLASS II TYPINGon DPB1*-1 EQUIVALENT 04:01 Normal [facility] Comment on above: Order Comment: Some [...] to frequency. Performed By: #### 3 1397, 06230, 32562, 93313, 76423 #### [facility] [address] [place] [address], [place] DPB1*-2 EQUIVALENT 04:02 Normal [facility] Comment on above: Order Comment: Some [...] to frequency. Performed By: #### 3 1397, 32399, 28449, 26316, 70875 #### [facility] [address] [facility] [place] [address], [place] DQA1*-1 EQUIVALENT 01 Normal [facility] Comment on above: Order Comment: Some [...] to frequency. Performed By: #### 3 1397, 39255, 33685, 23292, 31000 #### [facility] [address] [place] [address], [place] DQA1*-2 EQUIVALENT 05 Normal [facility] Comment on above: Order Comment: Some [...] to frequency. Performed By: #### 3 1397, 51373, 87652, 31550, 18174 #### [facility] [address] [place] [address], [place] DQB1*-1 EQUIVALENT 7 Normal [facility] Comment on above: Order Comment: Some [...] to frequency. Performed By: #### 3 1397, 53301, 04911, 96606, 49001 #### [facility] [address] [facility] [place] [address], [place] DQB1*-2 EQUIVALENT 5 Normal [facility] Comment on above: Order Comment: Some [...] to frequency. Performed By: #### 3 1397, 50184, 35435, 31079, 62568 #### [facility] [address] [place] [address], [place] DRB1*-1 EQUIVALENT 10 Normal [facility] Comment on above: Order Comment: Some [...] to frequency. Performed By: #### 3 1397, 72649, 93488, 64101, 52562 #### [facility] [address] [place] [address], [facility] DRB1*-2 EQUIVALENT 11 Normal [facility] Comment on above: Order Comment: Some [...] to frequency. Performed By: #### 3 1397, 56820, 63966, 28142, 95853 #### [facility] [address] [facility] [place] [address], [facility] DRB3*-1 EQUIVALENT 52 Normal [facility] Comment on above: Order Comment: Some [...] to frequency. Performed By: #### 3 1397, 52133, 10266, 71404, 43031 #### [facility] [address] [place] [address], [facility] METHOD Class II Typing by PCR-SSOP Luminex Normal [facility] Comment on above: Order Comment: Some [...] to frequency. Performed By: #### 3 1397, 73548, 45339, 19015, 27692 #### [facility] [address] [place] [address], [facility] LIPID PROFILEon 02-12-2022 Cholesterol [Mass/Vol] 221 mg/dL High 120-200 [facility] Comment on above: Result Comment: CHOL ESTEROL REFERENCE RANGE: 20 YEARS AND OLDER CARDIOVASCULAR RISK Less than 200 mg/dl Low Risk 200 to 239 mg/dl Borderline Risk 240 mg/dl and greater High Risk Performed By: #### 3 1397, 66908, 76698, 32434, 77841 #### [facility] [address] [place] [address], [place] Cholesterol in HDL [Mass/Vol] 40 mg/dL Normal 23-92 [facility] Comment on above: Result Comment: Slig ht variation in normal range could be due to gender and/or age. HDL CHOLESTEROL REFERENCE RANGE: 20 years and older Cardiovascular Risk > or =60 mg/dL Desirable 40 TO 59 mg/dL Low Risk <40 mg/dL High Risk Performed By: #### 3 1397, 61147, 60294, 64879, 94984 #### [facility] [address] [place] [address], [place] Cholesterol in LDL [Mass/Vol] 101 mg/dL Normal 0-130 [facility] Comment on above: Result Comment: LDL IS A CALCULATION LDL IS ONLY VALID IF THE TRIG IS LESS THAN 400. Performed By: #### 3 1397, 44709, 91235, 49562, 79930 #### [facility] [address] [place] [address], [place] Cholesterol.total/Chol esterol in HDL [Mass ratio] 5.5 {ratio} High .0-4.5 [facility] Comment on above: Performed By: #### 3 1397, 87565, 04496, 20711, 07220 #### [facility] [address] NON-HDL CHOLESTEROL 181 mg/dL Normal [facility] Comment on above: Performed By: #### 3 1397, 10829, 72467, 09505, 60560 #### [facility] [address] Triglyceride [Mass/Vol] 402 mg/dL High 40-149 [facility] Comment on above: Result Comment: TRIG LYCERIDE REFERENCE RANGE: 20 YEARS AND OLDER CARDIOVASCULAR RISK LESS THAN 150 mg/dl LOW RISK 150 TO 199 mg/dl BORDERLINE RISK 200 mg/dl AND GREATER HIGH RISK Performed By: #### 3 1397, 93126, 08843, 78102, 36121 #### [facility] [address] [facility] [place] [address], [facility] VLDL CHOL 80 mg/dL High 0-40 [facility] Comment on above: Performed By: #### 3 1397, 68767, 99743, 44498, 92913 #### [facility] [address] MUMPS IGG BLDon 02-12-2022 MUMPS IGG 5.46 Normal [facility] Comment on above: Result Comment: NORM AL RANGES: < OR = 0.9O NEGATIVE ; NO DETECTABLE IgG ANTIBODY TO MUMPS 0.91 - 1.09 EQUIVOCAL; REPEAT TESTING SUGGESTED > OR = 1.10 POSITIVE ; INDICATES PRESENCE OF DETECTABLE IgG ANTIBODY TO MUMPS Performed By: #### 3 1397, 49888, 42998, 36129, 11796 #### [facility] [address] [facility] [place] [address], [facility] RUBELLAon 02-12-2022 RUBELLA 4.79 Normal [facility] Comment on above: Result Comment: NORM AL RANGES: < OR = 0.9O NEGATIVE ; NO DETECTABLE IgG ANTIBODY TO RUBELLA 0.91 - 1.09 EQUIVOCAL; REPEAT TESTING SUGGESTED > OR = 1.10 POSITIVE ; INDICATES PRESENCE OF DETECTABLE IgG ANTIBODY TO RUBELLA VIRUS Performed By: #### 3 1397, 60765, 21922, 62697, 90159 #### [facility] [address] RUBEOLA MEASLES IGGon 2021 RUBEO IGG 6.43 Normal [facility] Comment on above: Result Comment: NORM AL RANGES: < OR = 0.9O NEGATIVE ; NO DETECTABLE IgG ANTIBODY TO RUBEOLA 0.91 - 1.09 EQUIVOCAL; REPEAT TESTING SUGGESTED > OR = 1.10 POSITIVE ; INDICATES PRESENCE OF DETECTABLE IgG ANTIBODY TO RUBEOLA Performed By: #### 3 1397, 26885, 71864, 16697, 53782 #### [facility] [address] SINGLE ANTIGEN CLASS 1on METHOD Class I Single Antigen Normal [facility] Comment on above: Order Comment: Some [...] to frequency. Performed By: #### 3 1397, 94815, 17450, 15102, 28924 #### [facility] [address] SINGLE ANTIGEN CLASS 2on COMMENTS Normal [facility] Comment on above: Order Comment: Some [...] watch list. Performed By: #### 3 1397, 58056, 66738, 25052, 85096 #### [facility] [address] [place] [address], [facility] Result Comment: Clas s I Antigen Microbeads Potential specificites added to the watch list. CPRA 0 Normal [facility] Comment on above: Order Comment: Some [...] to frequency. Performed By: #### 3 1397, 92777, 32055, 92620, 51701 #### [facility] [address] [place] [address], [facility] METHOD Class II Single Antigen Normal [facility] Comment on above: Order Comment: Some [...] to frequency. Performed By: #### 3 1397, 83618, 33192, 96775, 79686 #### [facility] [address] [place] [address], [facility] T PROT UR Yesy 02-12-2022 U TOTAL PROTEIN 44.0 mg/dL Normal [facility] Comment on above: Result Comment: Ther e are no established reference values for random urine specimens Performed By: #### 3 1397, 17376, 08891, 40077, 90057 #### [facility] [address] [place] [address], [facility] TB QUANTIFERON PLUSon 2021 MITOGEN MINUS NIL >10.00 Normal [facility] Comment on above: Performed By: #### 3 1592 #### [facility] [address] [place] [address], [place] NIL 0.03 IU/mL Normal [facility] Comment on above: Performed By: #### 3 1592 #### [facility] [address] [place] [address], [facility] TB QUANTIFERON Negative Normal NEGATIVE [facility] Comment on above: Result Comment: Jadiel tiferon TB Gold Interpretation (IU/mL): NEGATIVE: M. tuberculosis infection not likely. Nil: <=8.0 TB1 Antigen minus Nil (CS1TS-HNC): <0.35 OR >=0.35; and <25% of Nil value. TB2 Antigen minus Nil (FV5CU-URR): <0.35 OR >=0.35; and <25% of Nil [...] (https://www.cdc.gov/tb/publications/guidlines/default.htm Performed By: #### 3 1592 #### [facility] [address] [place] [address], [place] TB1 AG 0.05 IU/mL Normal [facility] Comment on above: Performed By: #### 3 1592 #### [facility] [address] [place] [address], [place] TB1 AG MINUS NIL 0.02 IU/mL Normal [facility] Comment on above: Performed By: #### 3 1592 #### [facility] [address] [place] [address], [place] TB2 AG 0.05 IU/mL Normal [facility] Comment on above: Performed By: #### 3 1592 #### [facility] [address] [place] [address], [place] TB2 AG MINUS NIL 0.02 IU/mL Normal [facility] Comment on above: Performed By: #### 3 1592 #### [facility] [address] [place] [address], [place] UA,MICROSCOPIC REQUIREDon Appearance (U) SL CLOUDY Abnormal CLEAR [facility] Comment on above: Performed By: #### 3 1397, 20842, 45390, 15169, 31462 #### [facility] [address] [place] [address], [place] Bilirubin Ql (U) Negative Normal NEGATIVE [facility] Comment on above: Performed By: #### 3 1397, 67850, 97141, 60045, 87055 #### [facility] [address] [place] [address], [place] Color (U) STRAW Abnormal YELLOW [facility] Comment on above: Performed By: #### 3 1397, 69297, 31596, 92704, 00978 #### [facility] [address] [place] [address], [place] EPIS MANY Abnormal FEW,OCC,NONE SEEN [facility] Comment on above: Performed By: #### 3 1397, 13018, 55135, 77129, 78574 #### [facility] [address] [place] [address], [place] Glucose Ql (U) 50 mg/dL Abnormal NEGATIVE [facility] Comment on above: Performed By: #### 3 1397, 20649, 43644, 02600, 85847 #### [facility] [address] [place] [address], [facility] Hemoglobin Ql (U) Negative Normal NEGATIVE [facility] Comment on above: Performed By: #### 3 1397, 65996, 40176, 85924, 64011 #### [facility] [address] [place] [address], [facility] KETONE Negative Normal NEGATIVE [facility] Comment on above: Performed By: #### 3 1397, 48465, 80487, 92448, 18360 #### [facility] [address] [place] [address], [facility] LEUK MARYAN MODERATE Abnormal NEGATIVE [facility] Comment on above: Performed By: #### 3 1397, 49507, 09799, 04056, 21097 #### [facility] [address] [place] [address], [facility] Nitrite Ql (U) Negative Normal NEGATIVE [facility] Comment on above: Performed By: #### 3 1397, 40687, 60756, 41991, 45183 #### [facility] [address] [place] [address], [facility] pH (U) 7.0 [pH] Normal 5.0-8.0 [facility] Comment on above: Performed By: #### 3 1397, 47376, 64093, 10948, 81813 #### [facility] [address] [place] [id number], [facility] Protein Ql (U) 30 mg/dL Abnormal NEGATIVE [facility] Comment on above: Performed By: #### 3 1397, 69463, 85705, 79379, 29734 #### [facility] [address] [facility] [place] [address], [facility] RBC NONE SEEN Normal NONE SEEN [facility] Comment on above: Performed By: #### 3 1397, 96990, 29904, 48298, 90556 #### [facility] [address] [place] [id number], [facility] SPEC GRAV 1.009 Low 1.015-1.020 [facility] Comment on above: Performed By: #### 3 1397, 90075, 89096, 39060, 87788 #### [facility] [address] [facility]. [address] WBC UA 11-20 Abnormal NONE SEEN [facility] Comment on above: Performed By: #### 3 1397, 42014, 61584, 17786, 56490 #### [facility] [address] [facility] [address] VARICELLA ZOSTER IGGon 02-12 VARICELLA IGG 3.29 Normal [facility] Comment on above: Result Comment: NORM AL RANGES: < OR = 0.9O NEGATIVE ; NO DETECTABLE IgG ANTIBODY TO VARICELLA-ZOSTER VIRUS 0.91 - 1.09 EQUIVOCAL; REPEAT TESTING SUGGESTED > OR = 1.10 POSITIVE ; INDICATES PRESENCE OF DETECTABLE IgG ANTIBODY TO VARICELLA-ZOSTER VIRUS Performed By: #### 3 1397, 16136, 30202, 76316, 05300 #### [facility] [address] [facility]. [address] PTH INTACTon 12-04-2021 PTH, Intact 165 pg/mL Critically high 15-65 [facility] Comment on above: Performed By: #### M G, URIC, RENAL #### [facility] [address] [place] [address] Dr. Hari Palmer FERRITINon 12-03-2021 Ferritin [Mass/Vol] 256.0 ng/mL Critically high 6.2-137.0 [facility] Comment on above: Performed By: #### M G, URIC, RENAL #### [facility] [address] [place] [address] [address] Hari Palmer HEMOGRAM AND PLATELon 2021 Hematocrit (Bld) [Volume fraction] 33.7 % Critically low 36.0-48.0 [facility] Comment on above: Performed By: #### M G, URIC, RENAL #### [facility] [address] [place] [address] [address] Hari Palmer Hemoglobin (Bld) [Mass/Vol] 10.9 g/dL Critically low 12.0-16.0 [facility] Comment on above: Performed By: #### M G, URIC, RENAL #### [facility] [address] [place] [address] Dr. Hari Palmer MCH (RBC) [Entitic mass] 31.4 pg Normal 26.7-34.0 [facility] Comment on above: Performed By: #### M G, URIC, RENAL #### [facility] [address] [place] [address] Dr. Hari Palmer MCHC (RBC) [Mass/Vol] 32.3 g/dL Normal 29.9-35.2 [facility] Comment on above: Performed By: #### M Edy, URIC, RENAL #### [facility] [address] [place] [address] Dr. Hari Palmer MCV (RBC) [Entitic vol] 97.1 fL Normal 81.0-99.0 [facility] Comment on above: Performed By: #### M G, URIC, RENAL #### [facility] [address] [place] [address] Dr. Hari Palmer PLT 314 103/ul Normal 150-450 [facility] Comment on above: Performed By: #### M G, URIC, RENAL #### [facility] [address] [place] [address] Dr. Hari Palmer RBC 3.47 106/ul Critically low 4.20-5.40 [facility] Comment on above: Performed By: #### M G, URIC, RENAL #### [facility] [address] [place] [address] Dr. Hari Palmer WBC 9.4 103/ul Normal 4.0-11.0 [facility] Comment on above: Performed By: #### M G, URIC, RENAL #### [facility] [address] [place] [address] Dr. Hari Palmer IRON AND TIBCon 12-03-2021 % SATURATION 19.0 % Normal [facility] Comment on above: Performed By: #### M G, URIC, RENAL #### [facility] [address] [place] [address] Dr. Hari Palmer Iron [Mass/Vol] 52.0 ug/dL Normal 37.0-170.0 [facility] Comment on above: Performed By: #### M G, URIC, RENAL #### [facility] [address] [place] [address] Dr. Hari Palmer TIBC DIRECT 273.0 ug/dL Normal 261.0-497.0 [facility] Comment on above: Performed By: #### M G, URIC, RENAL #### [facility] [address] [place] [address] Dr. Hari Palmer MAGNESIUMon 12-03-2021 Magnesium [Mass/Vol] 2.1 mg/dL Normal 1.6-2.3 [facility] Comment on above: Performed By: #### M G, URIC, RENAL #### [facility] [address] [place] [address] Dr. Hari Palmer RENAL FUNCTION PANELon 12-03 Albumin [Mass/Vol] 3.6 g/dL Normal 3.5-5.0 [facility] Comment on above: Performed By: #### M G, URIC, RENAL #### [facility] [address] [place] [address] Dr. Hari Palmer Calcium [Mass/Vol] 8.4 mg/dL Normal 8.4-10.2 [facility] Comment on above: Performed By: #### M G, URIC, RENAL #### [facility] [address] [place] [address] Dr. Hari Palmer Chloride [Moles/Vol] 101 mmol/L Normal 98-107 [facility] Comment on above: Performed By: #### M G, URIC, RENAL #### [facility] [address] [place] [address] Dr. Hari Palmer CO2 [Moles/Vol] 24.3 mmol/L Normal 22.0-30.0 [facility] Comment on above: Performed By: #### M G, URIC, RENAL #### [facility] [address] [place] [address] Dr. Hari Palmer Creatinine [Mass/Vol] 3.32 mg/dL Critically high 0.52-1.04 [facility] Comment on above: Performed By: #### M G, URIC, RENAL #### [facility] [address] [place] [address] [address] Hari Palmer EGFR-AF MONGOLIAN 18 mL/min/1.73m2 Critically low >=60 [facility] Comment on above: Performed By: #### M G, URIC, RENAL #### [facility] [address] [place] [address] [address] Hari Palmer EGFR-NON AF MONGOLIAN 15 mL/min/1.73m2 Critically low >=60 [facility] Comment on above: Performed By: #### M Edy, URIC, RENAL #### [facility] [address] [place] [address] Dr. Hari Palmer Glucose [Mass/Vol] 119 mg/dL Critically high 74-106 [facility] Comment on above: Performed By: #### M Edy, URIC, RENAL #### [facility] [address] [place] [address] Dr. Hari Palmer Phosphate [Mass/Vol] 4.7 mg/dL Critically high 2.5-4.5 [facility] Comment on above: Performed By: #### M Edy, URIC, RENAL #### [facility] [address] [place] [address] Dr. aHri Palmer Potassium [Moles/Vol] 4.0 mmol/L Normal 3.4-5.0 [facility] Comment on above: Performed By: #### M G, URIC, RENAL #### [facility] [address] [place] [address] Dr. Hari Palmer Sodium [Moles/Vol] 135 mmol/L Critically low 137-145 [facility] Comment on above: Performed By: #### M G, URIC, RENAL #### [facility] [address] [place] [address] Dr. Hari Palmer Urea nitrogen [Mass/Vol] 42.0 mg/dL Critically high 7.0-17.0 [facility] Comment on above: Performed By: #### M G, URIC, RENAL #### [facility] [address] [address] [address] Hari Palmer UA RANDOM W/MICROSCOPICon BACTERIA TRACE Abnormal NONE SEEN [facility] Comment on above: Performed By: #### U AMIC #### [facility] [address] [place] [address] [address] Hari Palmer Bilirubin Ql (U) Negative Normal NEGATIVE [facility] Comment on above: Performed By: #### U AMIC #### [facility] [address] [place] [address] [address] Hari Palmer CAST NONE SEEN Normal NONE SEEN [facility] Comment on above: Performed By: #### U AMIC #### [facility] [address] [place] [address] [address] Hari Palmer Clarity (U) CLEAR Normal CLEAR [facility] Comment on above: Performed By: #### U AMIC #### [facility] [address] [place] [address] [address] Hari Palmer Color (U) LT. YELLOW Normal YELLOW [facility] Comment on above: Performed By: #### U AMIC #### [facility] [address] [place] [address] [address] Hari Palmer Crystals LM Nom (Urine sed) NONE SEEN Normal NONE SEEN [facility] Comment on above: Performed By: #### U AMIC #### [facility] [address] [place] [address] [address] Hari Palmer Epithelial cells LM Ql (Urine sed) FEW Abnormal NONE SEEN /RARE [facility] Comment on above: Performed By: #### U AMIC #### [facility] [address] [place] [address] [address] Hari Palmer Glucose Ql (U) 100 mg/dl Abnormal NEGATIVE [facility] Comment on above: Performed By: #### U AMIC #### [facility] [address] [place] [address] Dr. Hari Palmer Hemoglobin Ql (U) TRACE-INTACT Abnormal NEGATIVE [facility] Comment on above: Performed By: #### U AMIC #### [facility] [address] [place] [address] Dr. Hari Palmer Ketones Ql (U) Negative Normal NEGATIVE [facility] Comment on above: Performed By: #### U AMIC #### [facility] [address] [place] [address] Dr. Hari Palmer LEUKOCYTES SMALL Abnormal NEGATIVE [facility] Comment on above: Performed By: #### U AMIC #### [facility] [address] [place] [address] Dr. Hari Palmer MUCOUS NONE SEEN Normal NONE SEEN [facility] Comment on above: Performed By: #### U AMIC #### [facility] [address] [place] [address] Dr. Hari Palmer Nitrite Ql (U) Negative Normal NEGATIVE [facility] Comment on above: Performed By: #### U AMIC #### [facility] [address] [place] [address] Dr. Hari Palmer pH (U) 6.0 [pH] Normal 5-9 [facility] Comment on above: Performed By: #### U AMIC #### [facility] [address] [place] [address] Dr. Hari Palmer RBC 0-2 Normal 0-2 [facility] Comment on above: Performed By: #### U AMIC #### [facility] [address] [place] [address] Dr. Hari Palmer SPEC GRAVITY 1.010 Normal 1.005-<=1.02 5 [facility] Comment on above: Performed By: #### U AMIC #### [facility] [address] [place] [address] Dr. Hari Palmer UA PROTEIN Negative Normal NEGATIVE/ TRACE [facility] Comment on above: Performed By: #### U AMIC #### [facility] [address] [place] [address] Dr. Hari Palmer Urobilinogen Qn (U) 0.2 {Janice'U}/dL Normal 0.2 - 1. 0 [facility] Comment on above: Performed By: #### U AMIC #### [facility] [address] [place] [address] [address] Hari Palmer WBC 5-10 Abnormal NONE SEEN [facility] Comment on above: Performed By: #### U AMIC #### [facility] [address] [place] [address] Dr. Hari Palmer URIC ACID SERUMon 12-03-2021 Urate [Mass/Vol] 4.6 mg/dL Normal 2.5-6.2 [facility] Comment on above: Performed By: #### M G, URIC, RENAL #### [facility] [address] [place] [address] Dr. Hari Palmer URINE T PROTEIN CREAT RATIOo n 12-03-2021 Protein (U) [Mass/Vol] 31.7 mg/dL Critically high <=12.0 [facility] Comment on above: Performed By: #### M G, URIC, RENAL #### [facility] [address] [place] [address] Dr. Hari Palmer UR PROT CREAT RAT 0.54 Normal [facility] Comment on above: Performed By: #### M G, URIC, RENAL #### [facility] [address] [place] [address] Dr. Hari Palmer URINE CREAT 59.03 mg/dL Normal 20.00-300.00 [facility] Comment on above: Performed By: #### M G, URIC, RENAL #### [facility] [address] [place] [address] Dr. Hari Palmer VITAMIN D 25 OHon 12-03-2021 VIT D 25-OH 38.1 ng/mL Normal [facility] Comment on above: Performed By: #### M G, URIC, RENAL #### [facility] [address] [place] [address] Dr. Hari Palmer VIT D RANGES SEE BELOW Normal [facility] Comment on above: Result Comment: <20 ng/mL Vit D deficient 20 - <30 ng/mL Vit D insufficient 30 - 100 ng/mL Vit D sufficient >100 ng/mL Potential Toxicity Performed By: #### M G, URIC, RENAL #### [facility] [address] [place] [address] Dr. Hari Palmer PTH INTACTon 09-03-2021 PTH, Intact 177 pg/mL Critically high 15-65 [facility] Comment on above: Performed By: #### P THINT #### [facility] [address] [place] [address] Dr. Hari Palmer CBC AUTO DIFFon 09-01-2021 BASO # 0.1 103/ul Normal 0.0-0.1 [facility] Comment on above: Performed By: #### M G, URIC, RENAL #### [facility] [address] [place] [address] Dr. Hari Palmer Basophils/100 WBC (Bld) 0.6 % Normal 0.2-2.0 [facility] Comment on above: Performed By: #### M G, URIC, RENAL #### [facility] [address] [place] [address] Dr. Hari Palmer EO # 0.3 103/ul Normal 0.0-0.7 [facility] Comment on above: Performed By: #### M G, URIC, RENAL #### [facility] [address] [place] [address] Dr. Hari Palmer Eosinophils/100 WBC (Bld) 3.5 % Normal 0.9-7.0 [facility] Comment on above: Performed By: #### M G, URIC, RENAL #### [facility] [address] [place] [address] Dr. Hari Palmer Erythrocyte distribution width (RBC) [Ratio] 13.8 % Normal 11.0-15.0 [facility] Comment on above: Performed By: #### M G, URIC, RENAL #### [facility] [address] [place] [address] Dr. Hari Palmer Hematocrit (Bld) [Volume fraction] 32.8 % Critically low 36.0-48.0 [facility] Comment on above: Performed By: #### M G, URIC, RENAL #### [facility] [address] [place] [address] Dr. Hari Palmer Hemoglobin (Bld) [Mass/Vol] 10.6 g/dL Critically low 12.0-16.0 [facility] Comment on above: Performed By: #### M G, URIC, RENAL #### [facility] [address] [place] [address] Dr. Hari Palmer IG # 0.14 10e3/ul Critically high 0.00-0.03 [facility] Comment on above: Performed By: #### M G, URIC, RENAL #### [facility] [address] [place] [address] Dr. Hari Palmer IG % 1.5 % Critically high 0.0-0.5 [facility] Comment on above: Performed By: #### M G, URIC, RENAL #### [facility] [address] [place] [address] Dr. Hari Palmer LYMPH # 1.8 103/ul Normal 1.2-3.8 [facility] Comment on above: Performed By: #### M G, URIC, RENAL #### [facility] [address] [place] [address] Dr. Hari Palmer Lymphocytes/100 WBC (Bld) 19.3 % Critically low 20.5-60.0 [facility] Comment on above: Performed By: #### M G, URIC, RENAL #### [facility] [address] [place] [address] Dr. Hari Palmer MANUAL DIFF REQ NO Normal [facility] Comment on above: Performed By: #### M G, URIC, RENAL #### [facility] [address] [place] [address] Dr. Hari Palmer MCH (RBC) [Entitic mass] 31.4 pg Normal 26.7-34.0 [facility] Comment on above: Performed By: #### M G, URIC, RENAL #### [facility] [address] [place] [address] Dr. Hari Palmer MCHC (RBC) [Mass/Vol] 32.3 g/dL Normal 29.9-35.2 [facility] Comment on above: Performed By: #### M G, URIC, RENAL #### [facility] [address] [place] [address] Dr. Hari Palmer MCV (RBC) [Entitic vol] 97.0 fL Normal 81.0-99.0 [facility] Comment on above: Performed By: #### M Edy, URIC, RENAL #### [facility] [address] [place] [address] Dr. Hari Palmer MONO # 0.4 103/ul Normal 0.3-0.8 [facility] Comment on above: Performed By: #### M G, URIC, RENAL #### [facility] [address] [place] [address] Dr. Hari Palmer Monocytes/100 WBC (Bld) 4.2 % Normal 1.7-12.0 [facility] Comment on above: Performed By: #### M Edy, URIC, RENAL #### [facility] [address] [place] [address] Dr. Hari Palmer NEUT # 6.5 103/ul Normal 1.4-6.5 [facility] Comment on above: Performed By: #### M Edy URIC, RENAL #### [facility] [address] [place] [address] Dr. Hari Palmer Neutrophils/100 WBC (Bld) 70.9 % Normal 43.0-75.0 [facility] Comment on above: Performed By: #### M Edy URIC, RENAL #### [facility] [address] [place] [address] Dr. Hari Palmer Platelet mean volume (Bld) [Entitic vol] 9.0 fL Critically low 9.5-13.5 [facility] Comment on above: Performed By: #### M G, URIC, RENAL #### [facility] [address] [place] [address] Dr. Hari Palmer PLT 289 103/ul Normal 150-450 [facility] Comment on above: Performed By: #### M Edy, URIC, RENAL #### [facility] [address] [place] [address] Dr. Hari Palmer RBC 3.38 106/ul Critically low 4.20-5.40 [facility] Comment on above: Performed By: #### M Edy, URIC, RENAL #### [facility] [address] [address] [address] Hari Palmer WBC 9.1 103/ul Normal 4.0-11.0 [facility] Comment on above: Performed By: #### M G, URIC, RENAL #### [facility] [address] [address] [address] Hari Palmer FERRITINon 09-01-2021 Ferritin [Mass/Vol] 204.0 ng/mL Critically high 6.2-137.0 [facility] Comment on above: Performed By: #### M G, URIC, RENAL #### [facility] [address] [place] [address] Dr. Hari Palmer IRON AND TIBCon 09-01-2021 % SATURATION 28.4 % Normal [facility] Comment on above: Performed By: #### M G, URIC, RENAL #### [facility] [address] [place] [address] Dr. Hari Palmer Iron [Mass/Vol] 80.0 ug/dL Normal 37.0-170.0 [facility] Comment on above: Performed By: #### M G, URIC, RENAL #### [facility] [address] [address] [address] Hari Palmer TIBC DIRECT 282.0 ug/dL Normal 261.0-497.0 [facility] Comment on above: Performed By: #### M G, URIC, RENAL #### [facility] [address] [place] [address] Dr. Hari Palmer MAGNESIUMon 09-01-2021 Magnesium [Mass/Vol] 2.2 mg/dL Normal 1.6-2.3 [facility] Comment on above: Performed By: #### U AMIC #### [facility] [address] [place] [address] Dr. Hari Palmer RENAL FUNCTION PANELon 09-01 Albumin [Mass/Vol] 3.5 g/dL Normal 3.5-5.0 [facility] Comment on above: Performed By: #### M G, URIC, RENAL #### [facility] [address] [place] [address] Dr. Hari Palmer Calcium [Mass/Vol] 8.7 mg/dL Normal 8.4-10.2 [facility] Comment on above: Performed By: #### M G, URIC, RENAL #### [facility] [address] [address] [address] Hari Palmer Chloride [Moles/Vol] 105 mmol/L Normal 98-107 [facility] Comment on above: Performed By: #### M G, URIC, RENAL #### [facility] [address] [address] [address] Hari Palmer CO2 [Moles/Vol] 21.1 mmol/L Critically low 22.0-30.0 [facility] Comment on above: Performed By: #### M Edy, URIC, RENAL #### [facility] [address] [place] [address] Dr. Hari Palmer Creatinine [Mass/Vol] 3.63 mg/dL Critically high 0.52-1.04 [facility] Comment on above: Performed By: #### M G, URIC, RENAL #### [facility] [address] [place] [address] Dr. Hari Palmer EGFR-AF MONGOLIAN 16 mL/min/1.73m2 Critically low >=60 [facility] Comment on above: Performed By: #### M G, URIC, RENAL #### [facility] [address] [place] [address] Dr. Hari Palmer EGFR-NON AF MONGOLIAN 14 mL/min/1.73m2 Critically low >=60 [facility] Comment on above: Performed By: #### M G, URIC, RENAL #### [facility] [address] [place] [address] Dr. Hari Palmer Glucose [Mass/Vol] 115 mg/dL Critically high 74-106 [facility] Comment on above: Performed By: #### M G, URIC, RENAL #### [facility] [address] [place] [address] Dr. Hari Palmer Phosphate [Mass/Vol] 4.6 mg/dL Critically high 2.5-4.5 [facility] Comment on above: Performed By: #### M G, URIC, RENAL #### [facility] [address] [place] [address] Dr. Hari Palmer Potassium [Moles/Vol] 4.2 mmol/L Normal 3.4-5.0 [facility] Comment on above: Performed By: #### M G, URIC, RENAL #### [facility] [address] [place] [address] Dr. Hari Palmer Sodium [Moles/Vol] 138 mmol/L Normal 137-145 [facility] Comment on above: Performed By: #### M G, URIC, RENAL #### [facility] [address] [place] [address] Dr. Hari Palmer Urea nitrogen [Mass/Vol] 50.0 mg/dL Critically high 7.0-17.0 [facility] Comment on above: Performed By: #### M G, URIC, RENAL #### [facility] [address] [place] [address] Dr. Hari Palmer UA RANDOM W/MICROSCOPICon BACTERIA SMALL Abnormal NONE SEEN [facility] Comment on above: Performed By: #### U AMIC #### [facility] [address] [place] [address] Dr. Hari Palmer Bilirubin Ql (U) Negative Normal NEGATIVE [facility] Comment on above: Performed By: #### U AMIC #### [facility] [address] [place] [address] Dr. Hari Palmer CAST NONE SEEN Normal NONE SEEN [facility] Comment on above: Performed By: #### U AMIC #### [facility] [address] [place] [address] Dr. Hari Palmer Clarity (U) CLEAR Normal CLEAR [facility] Comment on above: Performed By: #### U AMIC #### [facility] [address] [place] [address] Dr. Hari Palmer Color (U) LT. YELLOW Normal YELLOW [facility] Comment on above: Performed By: #### U AMIC #### [facility] [address] [place] [address] Dr. Hari Palmer Crystals LM Nom (Urine sed) NONE SEEN Normal NONE SEEN [facility] Comment on above: Performed By: #### U AMIC #### [facility] [address] [address] [address] Hari Palmer Epithelial cells LM Ql (Urine sed) MODERATE Abnormal NONE SEEN /RARE [facility] Comment on above: Performed By: #### U AMIC #### [facility] [address] [address] [address] Hari Palmer Glucose Ql (U) Negative Normal NEGATIVE [facility] Comment on above: Performed By: #### U AMIC #### [facility] [address] [address] [address] Hari Palmer Hemoglobin Ql (U) TRACE-INTACT Abnormal NEGATIVE [facility] Comment on above: Performed By: #### U AMIC #### [facility] [address] [place] [address] Dr. Hari Palmer Ketones Ql (U) Negative Normal NEGATIVE [facility] Comment on above: Performed By: #### U AMIC #### [facility] [address] [address] [address] Hari Palmer LEUKOCYTES Negative Normal NEGATIVE [facility] Comment on above: Performed By: #### U AMIC #### [facility] [address] [address] [address] Hari Palmer MUCOUS NONE SEEN Normal NONE SEEN [facility] Comment on above: Performed By: #### U AMIC #### [facility] [address] [place] [address] Dr. Hari Palmer Nitrite Ql (U) Negative Normal NEGATIVE [facility] Comment on above: Performed By: #### U AMIC #### [facility] [address] [address] [address] Hari Palmer pH (U) 6.0 [pH] Normal 5-9 [facility] Comment on above: Performed By: #### U AMIC #### [facility] [address] [place] [address] Dr. Hari Palmer RBC 2-5 Abnormal 0-2 [facility] Comment on above: Performed By: #### U AMIC #### [facility] [address] [address] [address] Hari Palmer SPEC GRAVITY 1.010 Normal 1.005-<=1.02 5 [facility] Comment on above: Performed By: #### U AMIC #### [facility] [address] [address] [address] Hari Palmer UA PROTEIN Negative Normal NEGATIVE/ TRACE [facility] Comment on above: Performed By: #### U AMIC #### [facility] [address] [place] [address] Dr. Hari Palmer Urobilinogen Qn (U) 0.2 {Janice'U}/dL Normal 0.2 - 1. 0 [facility] Comment on above: Performed By: #### U AMIC #### [facility] [address] [place] [address] Dr. Hari Palmer WBC 2-5 Abnormal NONE SEEN [facility] Comment on above: Performed By: #### U AMIC #### [facility] [address] [place] [address] Dr. Hari Palmer URIC ACID SERUMon 09-01-2021 Urate [Mass/Vol] 4.9 mg/dL Normal 2.5-6.2 [facility] Comment on above: Performed By: #### U AMIC #### [facility] [address] [place] [address] Dr. Hari Palmer URINE T PROTEIN CREAT RATIOo n 09-01-2021 Protein (U) [Mass/Vol] 22.2 mg/dL Critically high <=12.0 [facility] Comment on above: Performed By: #### M G, URIC, RENAL #### [facility] [address] [address] [address] Hari Palmer UR PROT CREAT RAT 0.47 Normal [facility] Comment on above: Performed By: #### M G, URIC, RENAL #### [facility] [address] [place] [address] Dr. Hari Palmer URINE CREAT 46.89 mg/dL Normal 20.00-300.00 [facility] Comment on above: Performed By: #### M G, URIC, RENAL #### [facility] [address] [place], [place] [address] Dr. Hari Palmer VITAMIN D 25 OHon 09-01-2021 VIT D 25-OH 40.5 ng/mL Normal [facility] Comment on above: Performed By: #### M G, URIC, RENAL #### [facility] [address] [place], [place] [address] Dr. Hari Palmer VIT D RANGES SEE BELOW Normal [facility] Comment on above: Result Comment: <20 ng/mL Vit D deficient 20 - <30 ng/mL Vit D insufficient 30 - 100 ng/mL Vit D sufficient >100 ng/mL Potential Toxicity Performed By: #### M G, URIC, RENAL #### [facility] [address] [place], [place] [address] Dr. Hari Palmer CNOVon 03-30-2021 CNOV Office Visit (NEPHMN ) ----- MANDEEP PURI ([id number]) 1975 F Date Time Provider Department 03/30/21 9:20 AM PERRI BARRETT NEPHMN During your visit today, we recorded the following information about you: Temperature Pulse Blood pressure Weight 98.2 degrees 75/minute 122/77 93 kg Height 1.549 m Perri Barrett MD 03/30/2021 10:25 AM Signed Mrs. 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 (more content not included)... Normal [facility] Urinalysison 03-30-2021 Bilirubin, Urine Negative Normal Negative [facility] [place] [facility] Comment on above: Performed By: #### U A #### [id number] [place] [phone] Clarity (U) Clear Normal Clear [facility] Comment on above: Performed By: #### U A #### [place] [phone] Color (U) Colorless Critically abnormal Yellow [facility] Comment on above: Performed By: #### U A #### [place] [phone] Comments SEE COMMENT Normal [facility] Comment on above: Result Comment: Micr oscopic not warranted Performed By: #### U A #### [id number] [place] [phone] Glucose Ql (U) Trace Critically abnormal Negative [facility] Comment on above: Performed By: #### U A #### [facility] [employer] [facility] [place] [phone] Hemoglobin/Blood,Ur Negative Normal Negative [facility] Comment on above: Performed By: #### U A #### [address] [place] [phone] Ketones Ql (U) Negative Normal Negative [facility] Comment on above: Performed By: #### U A #### [address] [address] [place] [phone] Leukest Negative Normal Negative [facility] Comment on above: Performed By: #### U A #### [place] [address] Nitrite Ql (U) Negative Normal Negative [facility] Comment on above: Performed By: #### U A #### [address] [place] [address] pH (U) 6.5 [pH] Normal 5.0-8.0 [facility] Comment on above: Performed By: #### U A #### [address] [place] [address] Protein, Urine Negative Normal Negative [facility] Comment on above: Performed By: #### U A #### [address] [address] Specific [place], Ur 1.008 Normal 1.005-1.030 [facility] Comment on above: Performed By: #### U A #### [address] [place] [address] Urine Codi Comment SEE COMMENT Normal [facility] Comment on above: Result Comment: N/A Performed By: #### U A #### [address] [place] [address] Urobilinogen (U) [Mass/Vol] Negative Normal Negative [facility] Comment on above: Performed By: #### U A #### [address] [place] [address] Coding Summary.on 04-21-2020 Coding Summary. CODING DATE: 020 FINAL [facility] STATUS: Home (Routine DC) PAYOR: [facility] [place] ADMIT DX: REASON FOR VISIT DX: [phone] [...] CphT Date Saved: 04/21/2020 05:17 pm Normal [facility] Physician Orderon 04-21-2020 Physician Order [id number] Normal [facility] Marci 04-12-2020 ALT [Catalytic activity/Vol] 14 U/L Normal 7 - 45 [facility] Comment on above: Result Comment: Kelsea ents treated with Sulfasalazine may generate falsely decreased results for ALT. Performed By: #### A LT #### [facility] [address] [place] [address] Ronald 04-12-2020 AST [Catalytic activity/Vol] 16 U/L Normal 9 - 39 [facility] Comment on above: Performed By: #### A ST #### [facility] [address] [place] [address] CREATININEon 04-12-2020 Creatinine [Mass/Vol] 2.83 mg/dL High 0.50 - 1.05 [facility] Comment on above: Performed By: #### C REAT #### [facility] [address] [place] [address] Creatinine [Mass/Vol] 18 mL/min/1.73m2 Abnormal >60 [facility] Comment on above: Performed By: #### C REAT #### [facility] [address] [place] [address] Creatinine [Mass/Vol] 22 mL/min/1.73m2 Abnormal >60 [facility] Comment on above: Result Comment: CALC ULATIONS OF ESTIMATED GFR ARE PERFORMED USING THE MDRD STUDY EQUATION FOR THE IDMS-TRACEABLE CREATININE METHODS. CLIN CHEM 2007;53:766-72 Performed By: #### C REAT #### [facility] [address] [place] [address] URIC ACIDon 04-12-2020 Urate [Mass/Vol] 5.2 mg/dL Normal 2.3 - 6.7 [facility] Comment on above: Result Comment: Beti puncture immediately after or during the administration of Metamizole may lead to falsely low results. Testing should be performed immediately prior to Metamizole dosing. Performed By: #### U DICK #### [facility] [address] [place] [address] URIC ACIDon 02-11-2020 Urate [Mass/Vol] 8.2 mg/dL High 2.3 - 6.7 [facility] Comment on above: Result Comment: Beti puncture immediately after or during the administration of Metamizole may lead to falsely low results. Testing should be performed immediately prior to Metamizole dosing. Performed By: #### U DICK #### [facility] [address] [place] [address] Cult,Urineon 08-04-2019 Cult,Urine Specimen Description .CLEAN CATCH URINE Special Requests NOT REPORTED Culture ESCHERICHIA COLI >[id number] CFU/ML Report Status FINAL 08/04/2019 SUSCEPTIBILITY Organism [...] Trimethoprim/Sulfa <=20 SUSCEPTIBLE Piperacillin/Tazobactam <=4 SUSCEPTIBLE Normal [facility] Comment on above: Performed By: #### D CITLALY, LIP, CMPX, TROPI, BNP, CDP, PT #### [facility] [address] [place] [address] Junior Graphic Designer: Sami Dominguez MD Brain Natri. Peptideon 08-02 Natriuretic peptide B (Bld) [Mass/Vol] 152 pg/mL Normal <300 [facility] Comment on above: Result Comment: Pro- BNP results cannot be compared to BNP results. Performed By: #### D CITLALY, LIP, CMPX, TROPI, BNP, CDP, PT #### [facility] [address] [place], [place] [id number] Junior Graphic Designer: Sami Dominguez MD Natriuretic peptide B (Bld) [Mass/Vol] Pro-BNP Reference Range: Normal [facility] Comment on above: Result Comment: Rule Out: <300 [place] Zone: Age <50 300-450 Age 50-75 300-900 Age >75 300-1800 Usually represents mild to moderate HF but other cardiopulmonary causes cannot be ruled out. Rule In: Age <50 >450 Age 50-75 >900 Age >75 >1800 Performed By: #### D CITLALY, LIP, CMPX, TROPI, BNP, CDP, PT #### [facility] [address] [place] [address] Junior Graphic Designer: Sami Dominguez MD Brain Natriuretic Peptideon 08-02-2019 Natriuretic peptide B (Bld) [Mass/Vol] 152 pg/mL <300 [place] Comment on above: Pro-BNP results eric ot be compared to BNP results. Natriuretic peptide B (Bld) [Mass/Vol] Pro-BNP Reference Range: [place], [place] Comment on above: Rule Out: <300 [place] Zone: Age <50 300-450 Age 50-75 300-900 Age >75 300-1800 Usually represents mild to moderate HF but other cardiopulmonary causes cannot be ruled out. Rule In: Age <50 >450 Age 50-75 >900 Age >75 >1800 CBC Auto Differentialon -2 Basophils (Bld) [#/Vol] 0.00 10*3/uL [place] Basophils/100 WBC (Bld) 0 % 0 - 2 % [place] Differential Type NOT REPORTED [place] Eosinophils (Bld) [#/Vol] 0.08 10*3/uL [place] Eosinophils/100 WBC (Bld) 1 % 1 - 4 % [place] Erythrocyte distribution width (RBC) [Ratio] 13.2 % 11.8 - 14.4 % [place] Hematocrit (Bld) [Volume fraction] 33.7 % Low 36.3 - 47.1 % [place] Hemoglobin (Bld) [Mass/Vol] 10.7 g/dL Low 11.9 - 15.1 g/dL [place] Immature granulocytes (Bld) [#/Vol] 0 % 0 [place] Immature granulocytes (Bld) [#/Vol] 0.00 10*3/uL [place] Interpretation and review of laboratory results Abnormal [place] Lymphocytes (Bld) [#/Vol] 0.90 10*3/uL Low [place] Lymphocytes/100 WBC (Bld) 12 % Low 24 - 43 % [place] MCH (RBC) [Entitic mass] 30.2 pg 25.2 - 33.5 pg [place] MCHC (RBC) [Mass/Vol] 31.8 g/dL 28.4 - 34.8 g/dL [place] MCV (RBC) [Entitic vol] 95.2 fL 82.6 - 102.9 fL [place] Monocytes (Bld) [#/Vol] 0.00 10*3/uL Low [place] Monocytes/100 WBC (Bld) 0 % Low 3 - 12 % [place] Morphology Geovany (Bld) [Interp] Normal [place] Platelet mean volume (Bld) [Entitic vol] 8.6 fL 8.1 - 13.5 fL [place] Platelets (Bld) [#/Vol] NOT REPORTED [place] Platelets (Bld) [#/Vol] 335 10*3/uL [place] RBC (Bld) [#/Vol] 3.54 10*6/uL Low 3.95 - 5.1 1 m/uL [place] RBC morphology finding Nom (Bld) NOT REPORTED [place] Segmented neutrophils/100 WBC (Bld) 87 % High 36 - 65 % [place] Segs Absolute 6.52 [place] WBC (Bld) [#/Vol] 7.5 10*3/uL [place] WBC (Bld) [#/Vol] 0.0 10*3/uL 0.0 per 10 0 WBC [place] WBC Morphology NOT REPORTED [place] CBC with Diffon 08-02-2019 Abs. Basophil 0.00 k/uL Normal 0.0-0.2 [facility] Comment on above: Performed By: #### D CITLALY, LIP, CMPX, TROPI, BNP, CDP, PT #### [facility] [address] [place] [id number] Junior Graphic Designer: Sami Dominguez MD Abs.Imm.Granulocyte 0.00 k/uL Normal 0.00-0.30 [facility] Comment on above: Performed By: #### D CITLALY, LIP, CMPX, TROPI, BNP, CDP, PT #### [address] [place] [address] Junior Graphic Designer: Sami Dominguez MD Abs.Neutrophil (Seg) 6.52 k/uL Normal 1.50-8.10 [facility] Comment on above: Performed By: #### D CITLALY, LIP, CMPX, TROPI, BNP, CDP, PT #### [address] [place] [address] Junior Graphic Designer: Sami Dominguez MD Basophils/100 WBC (Bld) 0 % Normal 0-2 [facility] Comment on above: Performed By: #### D CITLALY, LIP, CMPX, TROPI, BNP, CDP, PT #### [facility] [address] [place] [id number] Junior Graphic Designer: Sami Dominguez MD Eosinophils (Bld) [#/Vol] 0.08 10*3/uL Normal 0.00-0.44 [facility] Comment on above: Performed By: #### D CITLALY, LIP, CMPX, TROPI, BNP, CDP, PT #### [facility] [address] [place], [place] [id number] Junior Graphic Designer: Sami Dominguez MD Eosinophils/100 WBC (Bld) 1 % Normal 1-4 [facility] Comment on above: Performed By: #### D CITLALY, LIP, CMPX, TROPI, BNP, CDP, PT #### [facility] [address] [place], [facility] Junior Graphic Designer: Sami Dominguez MD Immature granulocytes (Bld) [#/Vol] 0 % Normal 0 [facility] Comment on above: Performed By: #### D CITLALY, LIP, CMPX, TROPI, BNP, CDP, PT #### [facility] [address] [place], [place] [id number] Junior Graphic Designer: Sami Dominguez MD Lymphocytes (Bld) [#/Vol] 0.90 10*3/uL Low 1.10-3.70 [facility] Comment on above: Performed By: #### D CITLALY, LIP, CMPX, TROPI, BNP, CDP, PT #### [facility] [address] [place], [facility] Junior Graphic Designer: Sami Dominguez MD Lymphocytes/100 WBC (Bld) 12 % Low 24-43 [facility] Comment on above: Performed By: #### D CITLALY, LIP, CMPX, TROPI, BNP, CDP, PT #### [facility] [address] [place], [place] [id number] Junior Graphic Designer: Sami Dominguez MD Monocytes (Bld) [#/Vol] 0.00 10*3/uL Low 0.10-1.20 [facility] Comment on above: Performed By: #### D CITLALY, LIP, CMPX, TROPI, BNP, CDP, PT #### [facility] [address] [place] [address] Junior Graphic Designer: Sami Dominguez MD Monocytes/100 WBC (Bld) 0 % Low 3-12 [facility] Comment on above: Performed By: #### D CITLALY, LIP, CMPX, TROPI, BNP, CDP, PT #### [facility] [address] [place], [facility] Junior Graphic Designer: Sami Dominguez MD Morphology Geovany (Bld) [Interp] Normal Normal [facility] Comment on above: Performed By: #### D CITLALY, LIP, CMPX, TROPI, BNP, CDP, PT #### [facility] [address] [place], [facility] Junior Graphic Designer: Sami Dominguez MD Neutrophil (Seg) 87 % High 36-65 [facility] Comment on above: Performed By: #### D CITLALY, LIP, CMPX, TROPI, BNP, CDP, PT #### [facility] [address] [place], [facility] Junior Graphic Designer: Sami Dominguez MD Erythrocyte distribution width (RBC) [Ratio] 13.2 % Normal 11.8-14.4 [facility] Comment on above: Performed By: #### D CITLALY, LIP, CMPX, TROPI, BNP, CDP, PT #### [address] [place], [facility]83 Junior Graphic Designer: Sami Dominguez MD Hematocrit (Bld) [Volume fraction] 33.7 % Low 36.3-47.1 [facility] Comment on above: Performed By: #### D CITLALY, LIP, CMPX, TROPI, BNP, CDP, PT #### [facility] [address] [place] [address] Junior Graphic Designer: Sami Dominguez MD Hemoglobin (Bld) [Mass/Vol] 10.7 g/dL Low 11.9-15.1 [facility] Comment on above: Performed By: #### D CITLALY, LIP, CMPX, TROPI, BNP, CDP, PT #### [facility] [address] [place], [facility]83 Junior Graphic Designer: Sami Dominguez MD MCH (RBC) [Entitic mass] 30.2 pg Normal 25.2-33.5 [facility] Comment on above: Performed By: #### D CITLALY, LIP, CMPX, TROPI, BNP, CDP, PT #### [facility] [address] [place] [facility] Junior Graphic Designer: Sami Dominguez MD MCHC (RBC) [Mass/Vol] 31.8 g/dL Normal 28.4-34.8 [facility] Comment on above: Performed By: #### D CITLALY, LIP, CMPX, TROPI, BNP, CDP, PT #### [facility] [address] [place], [facility]83 Junior Graphic Designer: Sami Dominguez MD MCV (RBC) [Entitic vol] 95.2 fL Normal 82.6-102.9 [facility] Comment on above: Performed By: #### D CITLALY, LIP, CMPX, TROPI, BNP, CDP, PT #### [facility] [address] [place], [place] [address] Junior Graphic Designer: Sami Dominguez MD NRBC Automated 0.0 per 100 WBC Normal 0.0 [facility] Comment on above: Performed By: #### D CITLALY, LIP, CMPX, TROPI, BNP, CDP, PT #### [facility] [address] [place], [facility] Junior Graphic Designer: Sami Dominguez MD Platelet mean volume (Bld) [Entitic vol] 8.6 fL Normal 8.1-13.5 [facility] Comment on above: Performed By: #### D CITLALY, LIP, CMPX, TROPI, BNP, CDP, PT #### [facility] [address] [place], [facility]83 Junior Graphic Designer: Sami Dominguez MD Platelets (Bld) [#/Vol] 335 10*3/uL Normal 138-453 [facility] Comment on above: Performed By: #### D CITLALY, LIP, CMPX, TROPI, BNP, CDP, PT #### [facility] [address] [place], [place] [id number] Junior Graphic Designer: Sami Dominguez MD RBC (Bld) [#/Vol] 3.54 10*6/uL Low 3.95-5.11 [facility] Comment on above: Performed By: #### D CITLALY, LIP, CMPX, TROPI, BNP, CDP, PT #### [facility] [address] [place] [address] Junior Graphic Designer: Sami Dominguez MD WBC (Bld) [#/Vol] 7.5 10*3/uL Normal 3.5-11.3 [facility] Comment on above: Performed By: #### D CITLALY, LIP, CMPX, TROPI, BNP, CDP, PT #### [address] [place], [facility]83 Junior Graphic Designer: Sami Dominguez MD Auto Diff Performed NOT REPORTED Normal [facility] Comment on above: Performed By: #### D CITLALY, LIP, CMPX, TROPI, BNP, CDP, PT #### [address] [place], [place] [id number] Junior Graphic Designer: Sami Dominguez MD Platelets (Bld) [#/Vol] NOT REPORTED Normal [facility] Comment on above: Performed By: #### D CITLALY, LIP, CMPX, TROPI, BNP, CDP, PT #### [facility] [address] [place], [place] [address]83 Junior Graphic Designer: Sami Dominguez MD RBC morphology finding Nom (Bld) NOT REPORTED Normal [facility] Comment on above: Performed By: #### D CITLALY, LIP, CMPX, TROPI, BNP, CDP, PT #### [facility] [address] [place], [place] [id number] Junior Graphic Designer: Sami Dominguez MD WBC Morphology NOT REPORTED Normal [facility] Comment on above: Performed By: #### D CITLALY, LIP, CMPX, TROPI, BNP, CDP, PT #### [facility] [address] [place] [address] Junior Graphic Designer: Sami Dominguez MD CTA CHEST ABDOMEN PELVIS [facility] CTA CHEST ABDOMEN PELVIS W CONTRAST [...] Yunier Yang MD 08/02/19 Final result Normal [facility] Moshe, Mhpn Incoming Radiant Results From [employer] - 08/02/2019 1:21 PM EDT EXAMINATION: CTA [...] recommended. Reference: J Am Danika Radiol 2013;10:675-681 [place], [place] EXAMINATION: CTA OF THE CHEST, ABDOMEN [...] and caliber without aneurysmal dilatation or dissection. [place], [place] No evidence for aneurysmal dilatation or dissection of the aorta or its branches. Findings most compatible with polycystic kidney disease. Subtle inflammation adjacent to the descending colon is suggestive of subtle colitis. No perforation or abscess formation. No free intraperitoneal air or fluid. 4.1 cm benign appearing ovarian cyst No follow-up imaging is recommended. Reference: J Am Danika Radiol 2013;10:675-681 [facility] [place], [place] Comp Metabolic Pr/rfx MGon 1 (cont.) Normal [facility] Comment on above: Result Comment: Aver age GFR for 40-49 years old: 99 mL/min/1.73sq m Chronic Kidney Disease: <60 mL/min/1.73sq m Kidney failure: <15 mL/min/1.73sq m eGFR calculated using average adult body mass. Additional eGFR calculator available at: http://www.[employer]/multiple_crcl_2011.htm Performed By: #### D CITLALY, LIP, CMPX, TROPI, BNP, CDP, PT #### [facility] [address] [place] [address] Junior Graphic Designer: Sami Dominguez MD Albumin [Mass/Vol] 4.4 g/dL Normal 3.5-5.2 [facility] Comment on above: Performed By: #### D CITLALY, LIP, CMPX, TROPI, BNP, CDP, PT #### [facility] [address] [place] [address] Junior Graphic Designer: Sami Dominguez MD Albumin/Globulin [Mass ratio] 1.0 {ratio} Normal 1.0-2.5 [facility] Comment on above: Performed By: #### D CITLALY, LIP, CMPX, TROPI, BNP, CDP, PT #### [facility] [address] [place] [address] Junior Graphic Designer: Sami Dominguez MD Alkaline Phos 98 U/L Normal 35-104 [facility] Comment on above: Performed By: #### D CITLALY, LIP, CMPX, TROPI, BNP, CDP, PT #### [facility] [address] [place] [address] Junior Graphic Designer: Sami Dominguez MD ALT [Catalytic activity/Vol] 16 U/L Normal 5-33 [facility] Comment on above: Performed By: #### D CITLALY, LIP, CMPX, TROPI, BNP, CDP, PT #### [facility] [address] [place], [place] [id number] Junior Graphic Designer: Sami Dominguez MD Anion gap [Moles/Vol] 18 mmol/L High 9-17 [facility] Comment on above: Performed By: #### D CITLALY, LIP, CMPX, TROPI, BNP, CDP, PT #### [address] [place] [address] Junior Graphic Designer: Sami Dominguez MD AST [Catalytic activity/Vol] 18 U/L Normal <32 [facility] Comment on above: Performed By: #### D CITLALY, LIP, CMPX, TROPI, BNP, CDP, PT #### [address] [place], [place] [id number] Junior Graphic Designer: Sami Dominguez MD Bilirubin Ql (U) 0.31 mg/dL Normal 0.3-1.2 [facility] Comment on above: Performed By: #### D CITLALY, LIP, CMPX, TROPI, BNP, CDP, PT #### [address] [place], [place] [id number] Junior Graphic Designer: Sami Dominguez MD BUN/CRE Ratio 13 Normal 9-20 [facility] Comment on above: Performed By: #### D CITLALY, LIP, CMPX, TROPI, BNP, CDP, PT #### [address] [place] [address] Junior Graphic Designer: Sami Dominguez MD Calcium [Mass/Vol] 9.7 mg/dL Normal 8.6-10.4 [facility] Comment on above: Performed By: #### D CITLALY, LIP, CMPX, TROPI, BNP, CDP, PT #### [facility] [address] [place] [address] [place] [address] Junior Graphic Designer: Sami Dominguez MD Chloride [Moles/Vol] 95 mmol/L Low 98-107 [facility] Comment on above: Performed By: #### D CITLALY, LIP, CMPX, TROPI, BNP, CDP, PT #### [facility] [address] [place] [address] Junior Graphic Designer: Sami Dominguez MD CO2 [Moles/Vol] 18 mmol/L Low 20-31 [facility] Comment on above: Performed By: #### D CITLALY, LIP, CMPX, TROPI, BNP, CDP, PT #### [facility] [address] [place] [address] Junior Graphic Designer: Sami Dominguez MD Creatinine [Mass/Vol] 3.07 mg/dL High 0.50-0.90 [facility] Comment on above: Performed By: #### D CITLALY, LIP, CMPX, TROPI, BNP, CDP, PT #### [facility] [address] [place], [facility] Junior Graphic Designer: Sami Dominguez MD GFR, Amer 20 mL/min Low >60 [facility] Comment on above: Performed By: #### D CITLALY, LIP, CMPX, TROPI, BNP, CDP, PT #### [facility] [address] [place], [facility] Junior Graphic Designer: Sami Dominguez MD GFR,non Amer 17 mL/min Low >60 [facility] Comment on above: Performed By: #### D CITLALY, LIP, CMPX, TROPI, BNP, CDP, PT #### [facility] [address] [place] [address] Junior Graphic Designer: Sami Dominguez MD Glucose [Mass/Vol] 89 mg/dL Normal 70-99 [facility] Comment on above: Performed By: #### D CITLALY, LIP, CMPX, TROPI, BNP, CDP, PT #### [facility] [address] [place] [address] Junior Graphic Designer: Sami Dominguez MD Potassium [Moles/Vol] 3.9 mmol/L Normal 3.7-5.3 [facility] Comment on above: Performed By: #### D CITLALY, LIP, CMPX, TROPI, BNP, CDP, PT #### [facility] [address] [place] [address] Junior Graphic Designer: Sami Dominguez MD Protein [Mass/Vol] 8.8 g/dL High 6.4-8.3 [facility] Comment on above: Performed By: #### D CITLALY, LIP, CMPX, TROPI, BNP, CDP, PT #### [facility] [address] [place] [address] Junior Graphic Designer: Sami Dominguez MD Sodium [Moles/Vol] 131 mmol/L Low 135-144 [facility] Comment on above: Performed By: #### D CITLALY, LIP, CMPX, TROPI, BNP, CDP, PT #### [facility] [address] [place] [address] Junior Graphic Designer: Sami Dominguez MD Staging: Normal [facility] Comment on above: Result Comment: Stag e 1: Some kidney damage normal GFR Stage 2: Mild kidney damage GFR 60-89 Stage 3: Moderate kidney damage GFR 30-59 Stage 4: Severe kidney damage GFR 15-29 Stage 5: Severe kidney damage GFR <15 ESRD - chronic treatment by dialysis or transplant Performed By: #### D CITLALY, LIP, CMPX, TROPI, BNP, CDP, PT #### [facility] [address] [place] [address] Junior Graphic Designer: Sami Dominguez MD Urea nitrogen [Mass/Vol] 39 mg/dL High 6-20 [facility] Comment on above: Performed By: #### D CITLALY, LIP, CMPX, TROPI, BNP, CDP, PT #### [facility] [address] [place] [address] Junior Graphic Designer: Sami Dominguez MD Comprehensive Metabolic Pane l w/ Reflex to MGon 08-02-2019 Albumin [Mass/Vol] 4.4 g/dL 3.5 - 5.2 g/dL [place] Albumin/Globulin [Mass ratio] 1.0 {ratio} [place] ALP [Catalytic activity/Vol] 98 U/L 35 - 104 U/L [place] ALT [Catalytic activity/Vol] 16 U/L 5 - 33 U/L [place] Anion gap [Moles/Vol] 18 mmol/L High 9 - 17 mmol/L [place] AST [Catalytic activity/Vol] 18 U/L <32 [place] Bilirubin Ql (U) 0.31 mg/dL 0.3 - 1.2 mg/dL [place] Bun/Cre Ratio 13 [place] Calcium [Mass/Vol] 9.7 mg/dL 8.6 - 10. 4 mg/dL [place] Chloride [Moles/Vol] 95 mmol/L Low 98 - 10 7 mmol/L [place] CO2 [Moles/Vol] 18 mmol/L Low 20 - 31 mmol/L [place] Creatinine [Mass/Vol] 3.07 mg/dL High 0.5 - 0.9 mg/dL [place] GFR 20 mL/min Low >60 [place] GFR Non- 17 mL/min Low >60 [place] Glucose [Mass/Vol] 89 mg/dL 70 - 99 mg/dL [place] Interpretation and review of laboratory results Abnormal [place] Potassium [Moles/Vol] 3.9 mmol/L 3.7 - 5.3 mmol/L [place] Protein [Mass/Vol] 8.8 g/dL High 6.4 - 8.3 g/dL [place] Sodium [Moles/Vol] 131 mmol/L Low 135 - 144 mmol/L [place] Urea nitrogen [Mass/Vol] 39 mg/dL High 6 - 20 mg/dL [place] D-Dimer Teston 08-02-2019 D-Dimer Test 1.15 mg/L FEU High 0.19-0.50 [facility] Comment on above: Result Comment: Elevated levels [...] LIP, CMPX, TROPI, BNP, CDP, PT #### [facility] [address] [place] [address] Junior Graphic Designer: Sami Dominguez MD D-Dimer, Quantitativeon 07-07 D-Dimer, Quant 1.15 [place] Comment on above: Elevated levels of [...] Interpretation and review of laboratory results Abnormal [place] Lactate, Sepsison 08-02-2019 Lactic Acid, Sepsis 3.6 mmol/L High 0.5-1.9 [facility] Comment on above: Performed By: #### L ACDS #### [facility] [address] [place] [address] Junior Graphic Designer: Sami Dominguez MD Lactic Acid,Sep Wbld NOT REPORTED Normal 0.5-1.9 [facility] Comment on above: Performed By: #### L ACDS #### [facility] [address] [place] [address] Junior Graphic Designer: Sami Dominguez MD Interpretation and review of laboratory results Abnormal [place] Lactic Acid, Sepsis 3.6 mmol/L High 0.5 - 1. 9 mmol/L [place] Lactic Acid, Sepsis, Whole Blood NOT REPORTED 0.5 - 1.9 mmol/L [place] Lactic Acidon 08-02-2019 Lactate [Moles/Vol] 1.0 mmol/L Normal 0.5-2.2 [facility] Comment on above: Performed By: #### D CITLALY, LIP, CMPX, TROPI, BNP, CDP, PT #### [facility] [address] [place] [address] Junior Graphic Designer: Sami Dominguez MD Lactate [Moles/Vol] NOT REPORTED Normal 0.7-2.1 [facility] Comment on above: Performed By: #### D CITLALY, LIP, CMPX, TROPI, BNP, CDP, PT #### [facility] [address] [place] [address] Junior Graphic Designer: Sami Dominguez MD Lactic Acid, Plasmaon 2018 Lactate [Moles/Vol] 1 mmol/L 0.5 - 2. 2 mmol/L [place] Lactic Acid, Whole Blood NOT REPORTED 0.7 - 2.1 mmol/L [place] Lipaseon 08-02-2019 Lipase [Catalytic activity/Vol] 38 U/L Normal 13-60 [facility] Comment on above: Performed By: #### D CITLALY, LIP, CMPX, TROPI, BNP, CDP, PT #### [facility] [address] [place] [address] Junior Graphic Designer: Sami Dominguez MD Lipase [Catalytic activity/Vol] 38 U/L 13 - 60 U/L [place] Metabolic Panelon 08-02-2019 GFR/1.73 sq M predicted among non-blacks MDRD (S/P/Bld) [Vol rate/Area] [place] Comment on above: Stage 1: Some [...] body mass. Additional eGFR calculator available at: http://www.[employer]/multiple_crcl_2012.htm Microscopic Urinalysison Amorphous, UA NOT REPORTED None [place] Bacteria, UA 1+ Abnormal None [place] Casts UA NOT REPORTED /LPF [place] Crystals UA NOT REPORTED None /HPF [place] Epithelial Cells UA 2 TO 5 [place] Interpretation and review of laboratory results Abnormal [place] Mucus, UA NOT REPORTED None [place] Other Observations UA NOT REPORTED NOT REQ. M [place] RBC (U) [#/Vol] None [place] Renal Epithelial, Urine NOT REPORTED 0 /HPF [place] Trichomonas, UA NOT REPORTED None [place] WBC, UA 50 TO 100 [place] Yeast, UA NOT REPORTED None [place] PTon 08-02-2019 INR Coag (PPP) [Relative time] 1.0 {INR} Normal 0.9-1.2 [facility] Comment on above: Performed By: #### D CITLALY, LIP, CMPX, TROPI, BNP, CDP, PT #### [facility] [address] [place] [address] Junior Graphic Designer: Sami Dominguez MD PT Coag (PPP) [Time] 10.0 s Normal 9.7-12.2 [facility] Comment on above: Performed By: #### D CITLALY, LIP, CMPX, TROPI, BNP, CDP, PT #### [facility] [address] [place], [place] [id number] Junior Graphic Designer: Sami Dominguez MD Protime-INRon 08-02-2019 INR Coag (PPP) [Relative time] 1.0 {INR} [place], [place] PT Coag (PPP) [Time] 10 s [place] Troponinon 08-02-2019 Troponin I.cardiac [Mass/Vol] ng/mL Normal <0.03 [facility] Comment on above: Result Comment: Trop onin T results cannot be compared to Troponin-I results. Performed By: #### D CITLALY, LIP, CMPX, TROPI, BNP, CDP, PT #### [address] [place] [address] Junior Graphic Designer: Sami Dominguez MD Troponin I.cardiac [Mass/Vol] Normal [facility] Comment on above: Result Comment: Refe rence [...] LIP, CMPX, TROPI, BNP, CDP, PT #### [facility] [address] [place] [address] Junior Graphic Designer: Sami Dominguez MD Troponin I.cardiac [Mass/Vol] NOT REPORTED Normal 0-14 [facility] Comment on above: Performed By: #### D CITLALY, LIP, CMPX, TROPI, BNP, CDP, PT #### [facility] [address] [place] [address] Junior Graphic Designer: Sami Dominguez MD Troponin I.cardiac [Mass/Vol] [place] Comment on above: Reference Range: <0.03 [...] diagnosis. Troponin T.cardiac [Mass/Vol] ug/L <0.03 ng/mL [place] Comment on above: Troponin T results c annot be compared to Troponin-I results. Troponin, High Sensitivity NOT REPORTED 0 - 14 ng/L [place] Troponin I.cardiac [Mass/Vol] ng/mL Normal <0.03 [facility] Comment on above: Result Comment: Trop onin T results cannot be compared to Troponin-I results. Performed By: #### D CITLALY, LIP, CMPX, TROPI, BNP, CDP, PT #### [facility] [address] [place] [address] [place] [address] Junior Graphic Designer: Sami Dominguez MD Troponin I.cardiac [Mass/Vol] Normal [facility] Comment on above: Result Comment: Refe rence [...] LIP, CMPX, TROPI, BNP, CDP, PT #### [facility] [address] [place] [address] Junior Graphic Designer: Sami Dominguez MD Troponin I.cardiac [Mass/Vol] NOT REPORTED Normal 0-14 [facility] Comment on above: Performed By: #### D CITLALY, LIP, CMPX, TROPI, BNP, CDP, PT #### [facility] [address] [place] [address] Junior Graphic Designer: Sami Dominguez MD Troponin I.cardiac [Mass/Vol] [place] Comment on above: Reference Range: <0.03 [...] diagnosis. Troponin T.cardiac [Mass/Vol] ug/L <0.03 ng/mL [place] Comment on above: Troponin T results c annot be compared to Troponin-I results. Troponin, High Sensitivity NOT REPORTED 0 - 14 ng/L [place] UA w/Reflex Cultureon 2018 Acetoacetic Acid,Ur Negative Normal [facility] Comment on above: Performed By: #### D CITLALY, LIP, CMPX, TROPI, BNP, CDP, PT #### [facility] [address] [place] [address] [place] [place], [place] [id number] Junior Graphic Designer: Sami Dominguez MD Bilirubin, SemiQt,Ur Negative Normal [facility] Comment on above: Performed By: #### D CITLALY, LIP, CMPX, TROPI, BNP, CDP, PT #### [facility] [address] [place] [address] [place] [id number] Junior Graphic Designer: Sami Dominguez MD Color (U) YELLOW Normal [facility] Comment on above: Performed By: #### D CITLALY, LIP, CMPX, TROPI, BNP, CDP, PT #### [facility] [address] [place], [facility] Junior Graphic Designer: Sami Dominguez MD Glucose Ql (U) Negative Normal [facility] Comment on above: Performed By: #### D CITLALY, LIP, CMPX, TROPI, BNP, CDP, PT #### [facility] [address] [place], [place] [id number] Junior Graphic Designer: Sami Dominguez MD Hemoglobin, Ur 1+ Abnormal [facility] Comment on above: Performed By: #### D CITLALY, LIP, CMPX, TROPI, BNP, CDP, PT #### [facility] [address] [place], [place] [id number] Junior Graphic Designer: Sami Dominguez MD Leukocyte esterase Test strip Ql (U) MODERATE Abnormal NEG [facility] Comment on above: Performed By: #### D CITLALY, LIP, CMPX, TROPI, BNP, CDP, PT #### [facility] [address] [place], [place] [id number] Junior Graphic Designer: Sami Dominguez MD Nitrite,Ur Negative Normal NEG [facility] Comment on above: Performed By: #### D CITLALY, LIP, CMPX, TROPI, BNP, CDP, PT #### [facility] [address] [place], [place] [id number] Junior Graphic Designer: Sami Dominguez MD pH (U) 6.0 [pH] Normal 5.0-9.0 [facility] Comment on above: Performed By: #### D CITLALY, LIP, CMPX, TROPI, BNP, CDP, PT #### [address] [place] [address] Junior Graphic Designer: Sami Dominguez MD Protein Ql (U) TRACE Abnormal NEG [facility] Comment on above: Performed By: #### D CITLALY, LIP, CMPX, TROPI, BNP, CDP, PT #### [address] [place], [place] [id number] Junior Graphic Designer: Sami Dominguez MD Specific gravity (U) [Rel density] 1.010 Normal 1.010-1.020 [facility] Comment on above: Performed By: #### D CITLALY, LIP, CMPX, TROPI, BNP, CDP, PT #### [facility] [address] [place] [address] Junior Graphic Designer: Sami Dominguez MD Turbidity CLEAR Normal CLEAR [facility] Comment on above: Performed By: #### D CITLALY, LIP, CMPX, TROPI, BNP, CDP, PT #### [facility] [address] [place] [address] Junior Graphic Designer: Sami Dominguez MD Urobilinogen,Ur Normal Normal NORM [facility] Comment on above: Performed By: #### D CITLALY, LIP, CMPX, TROPI, BNP, CDP, PT #### [facility] [address] [place] [address] Junior Graphic Designer: Sami Dominguez MD Comment NOT REPORTED Normal [facility] Comment on above: Performed By: #### D CITLALY, LIP, CMPX, TROPI, BNP, CDP, PT #### [facility] [address] [place] [address] Junior Graphic Designer: Sami Dominguez MD Urinalysis Reflex to Culture on 08-02-2019 Bilirubin Urine Negative NEGATIVE [place], [place] Color, UA YELLOW YELLOW [place] Glucose, Ur Negative NEGATIVE [place] Interpretation and review of laboratory results Abnormal [place] Ketones Ql (U) Negative NEGATIVE [place] Leukocyte esterase Test strip Ql (U) MODERATE Abnormal NEGATIVE [place] Nitrite, Urine Negative NEGATIVE [place] pH, UA 6.0 [place] Protein (U) [Mass/Vol] TRACE Abnormal NEGATIVE [place], [place] Specific [place], UA 1.010 [place] Turbidity UA CLEAR CLEAR [place] Urinalysis Comments NOT REPORTED [place] Urine Hgb 1+ Abnormal NEGATIVE [place] Urobilinogen, Urine Normal Normal [place] Urinalysis,Microon 9 ----- Normal [facility] Comment on above: Performed By: #### D CITLALY, LIP, CMPX, TROPI, BNP, CDP, PT #### [facility] [address] [place] [address] Junior Graphic Designer: Sami Dominguez MD Bacteria LM.HPF (Urine sed) [#/Area] 1+ Abnormal [facility] Comment on above: Performed By: #### D CITLALY, LIP, CMPX, TROPI, BNP, CDP, PT #### [facility] [address] [place], [place] [id number] Junior Graphic Designer: Sami Dominguez MD Epithelial cells LM.HPF (Urine sed) [#/Area] 2 TO 5 Normal 0-25 [facility] Comment on above: Performed By: #### D CITLALY, LIP, CMPX, TROPI, BNP, CDP, PT #### [facility] [address] [place], [facility] Junior Graphic Designer: Sami Dominguez MD RBC (U) [#/Vol] None Normal 0-2 [facility] Comment on above: Performed By: #### D CITLALY, LIP, CMPX, TROPI, BNP, CDP, PT #### [facility] [address] [place], [place] [address] Junior Graphic Designer: Sami Dominguez MD WBC (U) [#/Vol] 50 TO 100 Normal 0-5 [facility] Comment on above: Performed By: #### D CITLALY, LIP, CMPX, TROPI, BNP, CDP, PT #### [facility] [address] [place] [address] Junior Graphic Designer: Sami Dominguez MD Amorphous sediment LM Ql (Urine sed) NOT REPORTED Normal [facility] Comment on above: Performed By: #### D CITLALY, LIP, CMPX, TROPI, BNP, CDP, PT #### [facility] [address] [place], [place] [id number] Junior Graphic Designer: Sami Dominguez MD Casts LM.LPF (Urine sed) [#/Area] NOT REPORTED Normal [facility] Comment on above: Performed By: #### D CITLALY, LIP, CMPX, TROPI, BNP, CDP, PT #### [facility] [address] [place], [facility] Junior Graphic Designer: Sami Dominguez MD Crystals LM Nom (Urine sed) NOT REPORTED Normal [facility] Comment on above: Performed By: #### D CITLALY, LIP, CMPX, TROPI, BNP, CDP, PT #### [facility] [address] [place] [address] Junior Graphic Designer: Sami Dominguez MD Epithelial, Renal NOT REPORTED Normal 0 [facility] Comment on above: Performed By: #### D CITLALY, LIP, CMPX, TROPI, BNP, CDP, PT #### [facility] [address] [place] [address] Junior Graphic Designer: Sami Dominguez MD Mucus Strands NOT REPORTED Normal [facility] Comment on above: Performed By: #### D CITLALY, LIP, CMPX, TROPI, BNP, CDP, PT #### [address] [place] [address] Junior Graphic Designer: Sami Dominguez MD Other Observations NOT REPORTED [facility] on above: Performed By: #### D CITLALY, LIP, CMPX, TROPI, BNP, CDP, PT #### [address] [place] [address] Junior Graphic Designer: Sami Dominguez MD Trichomonas NOT REPORTED Normal [facility] Comment on above: Performed By: #### D CITLALY, LIP, CMPX, TROPI, BNP, CDP, PT #### [address] [place] [address] Junior Graphic Designer: Sami Dominguez MD Yeast LM Ql (Urine sed) NOT REPORTED Normal [facility] Comment on above: Performed By: #### D CITLALY, LIP, CMPX, TROPI, BNP, CDP, PT #### [facility] [address] [place] [address] Junior Graphic Designer: Sami Dominguez MD XR CHEST PORTABLEon 10-28-20 19 XR CHEST PORTABLE EXAMINATION: ONE XRAY VIEW [...] Cullen Ngo MD 08/02/19 Final result Normal [facility] EXAMINATION: ONE XRA Y VIEW OF THE CHEST 08/02/2019 12:59 pm COMPARISON: None. HISTORY: ORDERING SYSTEM PROVIDED HISTORY: CP TECHNOLOGIST PROVIDED HISTORY: CP FINDINGS: Heart size and pulmonary vessels are within normal limits. Lungs are clear. No focal infiltrates or significant pleural effusions are seen. There is no acute osseous abnormality. Monitor leads overlie the chest. [place] No acute cardiopulmo nary process. [place] Moshe, [facility] Incoming Radiant Results From [employer] - 08/02/2019 1:10 PM EDT EXAMINATION: ONE [...] the chest. IMPRESSION: No acute cardiopulmonary process. [place] Vital Signs Date Time Vital Sign Value Performing Clinician Facility 03-15-2024 17:34-0400 Body height 157.48 cm PROFESSOR OF RELIGION Andreia Boyceb Work Phone: [facility] 03-15-2024 17:34-0400 Body mass index (BMI) [Ratio] 31.8 kg/m2 PROFESSOR OF RELIGION Andreia Boyceb Work Phone: [facility] 03-15-2024 17:34-0400 Body temperature 100.3 [degF] CECILIA Andreia Boyceb Work Phone: [facility] 03-15-2024 17:34-0400 Body weight 78.92 kg PROFESSOR OF RELIGION Andreia Jerry Work Phone: [facility] 03-15-2024 17:34-0400 Diastolic blood pressure 79 mm[Hg] PROFESSOR OF RELIGION Andreia Jerry Work Phone: [facility] 03-15-2024 17:34-0400 Heart rate 88 /min PROFESSOR OF RELIGION Andreia Jerry Work Phone: [facility] 03-15-2024 17:34-0400 Respiratory rate 18 /min PROFESSOR OF RELIGION Andreia Jerry Work Phone: [facility] 03-15-2024 17:34-0400 SaO2% (BldA) [Mass fraction] 96 % PROFESSOR OF RELIGION Andreia Jerry Work Phone: [facility] 03-15-2024 17:34-0400 Systolic blood pressure 121 mm[Hg] PROFESSOR OF RELIGION Andreia Jerry Work Phone: [facility] 07-30-2022 17:40-0400 Body height 157.48 cm Yaneth Toni Other [facility] Other 07-30-2022 17:40-0400 Body mass index (BMI) [Ratio] 36.69 kg/m2 Yaneth Toni Other [facility] Other 07-30-2022 17:40-0400 Body temperature 97.4 [degF] Yaneth Toni Other [facility] Other 07-30-2022 17:40-0400 Body weight 90.99 kg Yaneth Toni Other [facility] Other 07-30-2022 17:40-0400 Diastolic blood pressure 85 mm[Hg] Yaneth Toni Other [facility] Other 07-30-2022 17:40-0400 Respiratory rate 18 /min Yaneth Toni Other [facility] Other 07-30-2022 17:40-0400 SaO2% (BldA) [Mass fraction] 99 % Yaneth Toni Other [facility] Other 07-30-2022 17:40-0400 Systolic blood pressure 124 mm[Hg] Yaneth Toni Other [facility] Other 07-03-2022 09:45-0400 Body height 157.48 cm Estefania Rabiagary Other [facility] Other 07-03-2022 09:45-0400 Body mass index (BMI) [Ratio] 36.76 kg/m2 Estefania Vo Other [facility] Other 07-03-2022 09:45-0400 Body temperature 97 [degF] Estefania Vo Other [facility] Other 07-03-2022 09:45-0400 Body weight 91.17 kg Estefania Tavo Other [facility] Other 07-03-2022 09:45-0400 Diastolic blood pressure 60 mm[Hg] Estefania Vo Other [facility] Other 07-03-2022 09:45-0400 SaO2% (BldA) [Mass fraction] 99 % Estefania Vo Other [facility] Other 07-03-2022 09:45-0400 Systolic blood pressure 110 mm[Hg] Estefania Vo Other [facility] Other 06-20-2022 16:10-0400 Diastolic blood pressure 68 mm[Hg] DO Ming Espinoza Work Phone: [facility] 06-20-2022 16:10-0400 Heart rate 69 /min DO Ming Alexis Work Phone: [facility] 06-20-2022 16:10-0400 Respiratory rate 18 /min DO Ming Alexis Work Phone: [facility] 06-20-2022 16:10-0400 SaO2% (BldA) [Mass fraction] 100 % DO Ming Alexis Work Phone: [facility] 06-20-2022 16:10-0400 Systolic blood pressure 126 mm[Hg] DO Minglizz Espinoza Work Phone: [facility] 06-20-2022 13:15-0400 Body height 157.48 cm DO Ming Espinoza Work Phone: [facility] 06-20-2022 13:15-0400 Body temperature 98.6 [degF] DO Ming Espinoza Work Phone: [facility] 06-20-2022 13:15-0400 Body weight 91.5 kg DO Ming Espinoza Work Phone: [facility] 06-18-2022 10:45-0400 Diastolic blood pressure 79 mm[Hg] DO Ming Alexis Work Phone: [facility] 06-18-2022 10:45-0400 Heart rate 66 /min DO Ming Alexis Work Phone: [facility] 06-18-2022 10:45-0400 Respiratory rate 16 /min DO Ming Alexis Work Phone: [facility] 06-18-2022 10:45-0400 SaO2% (BldA) [Mass fraction] 100 % DO Ming Alexis Work Phone: [facility] 06-18-2022 10:45-0400 Systolic blood pressure 130 mm[Hg] DO Ming Espinoza Work Phone: [facility] 06-18-2022 08:08-0400 Body mass index (BMI) [Ratio] 37.8 kg/m2 DO Ming Espinoza Work Phone: [facility] 06-18-2022 07:41-0400 Body height 157.48 cm DO Ming Espinoza Work Phone: [facility] 06-18-2022 07:41-0400 Body weight 93.89 kg DO Ming Espinoza Work Phone: [facility] 06-18-2022 06:26-0400 Body temperature 98.5 [degF] DO Ming Espinoza Work Phone: [facility] 05-30-2022 11:00-0400 Body height 157.48 cm Jesus Parham Other [facility] Other 05-30-2022 11:00-0400 Body mass index (BMI) [Ratio] 36.76 kg/m2 Jesus Parham Other [facility] Other 05-30-2022 11:00-0400 Body temperature 97.6 [degF] Jesus Parham Other [facility] Other 05-30-2022 11:00-0400 Body weight 91.17 kg Jesus Parham Other [facility] Other 05-30-2022 11:00-0400 Diastolic blood pressure 76 mm[Hg] Jesus Parham Other [facility] Other 05-30-2022 11:00-0400 SaO2% (BldA) [Mass fraction] 98 % Jesus Parham Other [facility] Other 05-30-2022 11:00-0400 Systolic blood pressure 128 mm[Hg] Jesus Parham Other [facility] Other 05-02-2022 14:40-0400 Body height 157.48 cm Yaneth Toni Other [facility] Other 05-02-2022 14:40-0400 Body mass index (BMI) [Ratio] 36.76 kg/m2 Yaneth Toni Other [facility] Other 05-02-2022 14:40-0400 Body temperature 97.7 [degF] Yaneth Toni Other [facility] Other 05-02-2022 14:40-0400 Body weight 91.17 kg Yaneth Toni Other [facility] Other 05-02-2022 14:40-0400 Diastolic blood pressure 88 mm[Hg] Yaneth Toni Other [facility] Other 05-02-2022 14:40-0400 Respiratory rate 18 /min Yaneth Toni Other [facility] Other 05-02-2022 14:40-0400 SaO2% (BldA) [Mass fraction] 98 % Yaneth Toni Other [facility] Other 05-02-2022 14:40-0400 Systolic blood pressure 121 mm[Hg] Yaneth Toni Other [facility] Other 04-30-2022 10:10-0400 Body height 157.48 cm Dipika Stinson Other [facility] Other 04-30-2022 10:10-0400 Body mass index (BMI) [Ratio] 37.86 kg/m2 Dipika Stinson Other [facility] Other 04-30-2022 10:10-0400 Body temperature 97.4 [degF] Dipika Stinson Other [facility] Other 04-30-2022 10:10-0400 Body weight 93.9 kg Dipika Stinson Other [facility] Other 04-30-2022 10:10-0400 Diastolic blood pressure 80 mm[Hg] Dipika Stinson Other [facility] Other 04-30-2022 10:10-0400 Respiratory rate 16 /min Dipika Stinson Other [facility] Other 04-30-2022 10:10-0400 SaO2% (BldA) [Mass fraction] 100 % Dipika Stinson Other [facility] Other 04-30-2022 10:10-0400 Systolic blood pressure 117 mm[Hg] Dipika Stinson Other [facility] Other 04-01-2022 09:13-0400 Diastolic blood pressure 62 mm[Hg] DO Ming Espinoza Work Phone: [facility] 04-01-2022 09:13-0400 Heart rate 83 /min DO Ming Espinoza Work Phone: [facility] 04-01-2022 09:13-0400 Respiratory rate 16 /min DO Ming Espinoza Work Phone: [facility] 04-01-2022 09:13-0400 SaO2% (BldA) [Mass fraction] 97 % DO Ming Espinoza Work Phone: [facility] 04-01-2022 09:13-0400 Systolic blood pressure 101 mm[Hg] DO Ming Espinoza Work Phone: [facility] 04-01-2022 07:23-0400 Body height 157.48 cm DO Ming Espinoza Work Phone: [facility] 04-01-2022 07:23-0400 Body mass index (BMI) [Ratio] 37.8 kg/m2 DO Ming Espinoza Work Phone: [facility] 04-01-2022 07:23-0400 Body temperature 97.8 [degF] DO Ming Espinoza Work Phone: [facility] 04-01-2022 07:23-0400 Body weight 93.89 kg DO Ming Espinoza Work Phone: [facility] 12-06-2021 16:20-0500 Body height 157.48 cm Yaneth Toni Other [facility] Other 12-06-2021 16:20-0500 Body mass index (BMI) [Ratio] 37.86 kg/m2 Yaneth Toni Other [facility] Other 12-06-2021 16:20-0500 Body weight 93.9 kg Yaneth Toni Other [facility] Other 12-06-2021 16:20-0500 Diastolic blood pressure 89 mm[Hg] Yaneth Toni Other [facility] Other 12-06-2021 16:20-0500 Respiratory rate 18 /min Yaneth Toni Other [facility] Other 12-06-2021 16:20-0500 SaO2% (BldA) [Mass fraction] 97 % Yaneth Toni Other [facility] Other 12-06-2021 16:20-0500 Systolic blood pressure 134 mm[Hg] Yaneth Toni Other [facility] Other 08-02-2019 16:35-0400 Body Temperature 99.3 [degF] [place] 08-02-2019 16:27-0400 Pulse (Heart Rate) 110 /min [place] 08-02-2019 16:27-0400 Pulse Oximetry 98 % [place] 08-02-2019 16:27-0400 Respiratory Rate 14 /min [place] [facility] 08-02-2019 16:16-0400 BP Diastolic 56 mm[Hg] [place] 08-02-2019 16:16-0400 BP Systolic 97 mm[Hg] [place] 08-02-2019 14:59-0400 BMI (Body Mass Index) 37.79 kg/m2 [place] 08-02-2019 14:59-0400 Body weight 90.72 kg [place] 08-02-2019 14:59-0400 Height 154.9 cm [place] Encounters Encounter Date Encounter Type Care Provider Facility Start: 05-19-2024 End: 05-19-2024 ambulatory SREE BLANCHARD [facility] Start: 04-27-2024 End: 04-27-2024 ambulatory MUNIRA PHAN [facility] Start: 04-23-2024 ambulatory MUNIRA PHAN [facility] Start: 04-19-2024 End: 04-19-2024 ambulatory BLAKE HINOJOSA Not Available Start: 04-14-2024 End: 04-14-2024 ambulatory MUNIRA TRNETMADHU Not Available Start: 03-23-2024 End: 03-23-2024 ambulatory MING ESPINOZA Not Available Start: 03-15-2024 End: 03-15-2024 ambulatory Andreia Edwards [facility] Work Phone: Start: 03-15-2024 End: 03-15-2024 Departed Referred PROFESSOR OF RELIGION Andreia Jerry Work Phone: [facility] [place] Work Phone: Start: 03-15-2024 End: 03-15-2024 Patient encounter procedure PROFESSOR OF RELIGIONRoxy Edwards Work Phone: [facility] Work Phone: Start: 12-23-2023 End: 12-23-2023 ambulatory MUNIRA NEWMANGUTIERREZSalome [facility] Start: 12-01-2023 End: 12-01-2023 ambulatory MING ESPINOZA Not Available Start: 11-06-2023 End: 11-06-2023 Patient encounter procedure DO Ming Espinoza Work Phone: [facility] [address] Work Phone: Start: 11-06-2023 End: 11-06-2023 ambulatory DO Ming Espinoza Work Phone: [facility] Work Phone: Start: 10-13-2023 End: 10-13-2023 ambulatory MING ESPINOZA Not Available Start: 09-01-2023 End: 09-01-2023 ambulatory MUNIRA NEWMANMADHU [facility] Start: 08-26-2023 ambulatory MUNIRA PHAN [facility] Start: 07-30-2023 End: 07-30-2023 ambulatory Referral Self Facility:[facility] Start: 06-28-2023 ambulatory MUNIRA Cazares [facility] Start: 07-30-2022 End: 07-30-2022 ambulatory Yaneth Toni Other [facility] Other Start: 07-30-2022 Office outpatient vi sit 25 minutes Yaneth Toni [facility] Start: 07-29-2022 End: 07-30-2022 ambulatory YANETH TONI Facility:[facility] Start: 07-16-2022 End: 07-16-2022 ambulatory DO Ming Espinoza Work Phone: [facility] Work Phone: Start: 07-16-2022 End: 07-16-2022 Patient encounter procedure DO Ming Espinoza Work Phone: [facility] Start: 07-03-2022 End: 07-03-2022 ambulatory Estefania Vo Other [facility] Other Start: 07-03-2022 Follow-up encounter Estefania [facility] Start: 06-20-2022 End: 06-20-2022 ambulatory Jesus Parham Other [facility] Other Start: 06-20-2022 Telephone encounter Jesus Macedo [facility] Start: 06-20-2022 End: 06-20-2022 Emergency department patient visit DO Ming Espinoza Work Phone: [facility]-Emergency Room Start: 06-18-2022 End: 06-18-2022 Admission to same day surgery center DO Ming Espinoza Work Phone: [facility] [place] Start: 06-14-2022 End: 06-14-2022 Patient encounter procedure DO Ming Espinoza Work Phone: [facility]-Pre-Surgical Testing Start: 06-06-2022 End: 06-07-[address] BRINDA HINOJOSA Facility:[facility] Start: 06-05-2022 End: 06-05-2022 Patient encounter procedure DO Ming Espinoza Work Phone: [facility] Start: 06-03-2022 End: 06-03-2022 ambulatory Jesus Parham Other [facility] Other Start: 06-03-2022 Encounter for other preprocedural examination Jesus Parham [facility] Vascular Surgery Start: 06-03-2022 Telephone encounter Jesus Macedo [facility] Vascular Surgery Start: 05-30-2022 End: 05-30-2022 ambulatory Jesus Parham Other [facility] Other Start: 05-30-2022 [facility] visit new patient Jesus Tarik isabel [facility] Vascular Surgery Start: 05-30-2022 End: 05-30-2022 Patient encounter procedure DO Ming Espinoza Work Phone: [facility]Ultrasound [facility] Start: 05-29-[address] BLAKE HINOJOSA [facility] ity:[facility] Start: 05-02-2022 End: 05-02-2022 ambulatory Yaneth Toni Other [facility] Other Start: 05-02-2022 Office outpatient vi sit 25 minutes Yaneth Toni [facility] Nephrology Start: 04-30-2022 End: 04-30-2022 ambulatory Dipika Stinson Other [facility] Other Start: 04-30-2022 Office outpatient vi sit 15 minutes Dipika Stinson [facility] Start: 04-30-2022 Encounter for preprocedural laboratory examination YANETH MUÑOZ [facility] Start: 04-29-2022 Encounter for other preprocedural examination DR DOCTOR ALEJANDRO [facility] Start: 04-27-2022 End: 07-24-2022 Encounter for other preprocedural examination DR MING ESPINOZA Facility:[facility] Start: 04-27-2022 End: 04-28-[address] MING ESPINOZA Facility:[facility] Start: 04-27-2022 End: 04-28-2022 Encounter for preprocedural laboratory examination YANETH TONI Facility:[facility] Start: 04-03-2022 Encounter for other specified special examinations DR DOCTOR ALEJANDRO [facility] Start: 04-01-2022 End: 04-01-2022 Admission to same day surgery center DO Ming Espinoza Work Phone: [facility] Start: 03-29-2022 End: 03-30-[address] DOCTOR ALEJANDRO Facility:[facility] Start: 03-29-2022 End: 03-30-2022 Encounter for other specified special examinations DR DOCTOR ALEJANDRO Facility:[facility] Start: 03-28-2022 End: 03-28-2022 Patient encounter procedure DO Ming Espinoza Work Phone: [facility]Pre-Surgical Testing Start: 02-26-2022 End: 02-26-2022 ambulatory Shabbir Jones Other [facility] Other Start: 02-26-2022 Telephone encounter Shabbir VELAZQUEZ [employer] Start: 12-06-2021 End: 12-06-2021 ambulatory Yaneth Toni Other [facility] Other Start: 12-06-2021 Office outpatient vi sit 25 minutes Yaneth Toni [facility] [place] Start: 12-03-2021 End: 12-04-2021 ambulatory YANETH TONI Facility:[facility] Start: 09-01-2021 End: 09-02-[address] MING ESPINOZA Facility:[facility] Start: 08-02-2019 End: 08-02-2019 [facility] Start: 08-02-2019 End: 08-02-2019 Emergency department patient visit [facility] Work Phone: [facility] Comment on above: Acute sepsis (HCC) [...] 03-16-2024 Bacteria identified in Urine by Culture [facility] Start: 03-15-2024 Bacteria identified in Urine by Culture [facility] Start: 11-06-2023 [facility] Start: 06-18-2022 [facility] Start: 06-18-2022 [facility] Start: 04-01-2022 [facility] Work Phone: Start: 06-06-2019 Influenza vaccination Flu vaccine (# 1) [place], [place] Start: 2015 Lipid screen Lipid screen [place], [place] Start: 1996 Cervical cancer screen Cervical canc er screen [place], [place] Start: 1994 DTaP/Tdap/Td vaccine (1 - Tdap) DTaP/Tdap/Td vaccine (1 - Tdap) [place] Start: 1990 HIV screen HIV screen [place], [place] Start: 1975 Creatinine monitoring Creatinine mon itoring [place], [place] Start: 1975 Potassium monitoring Potassium monit oring [place] End: 08-02-2019 Bacteria identified Cx Nom (U) Urine Culture Microbiology STAT One Time for 1 Occurrences starting 08/02/2019 until 08/02/2019 [place] Comment on above: One Time for 1 Occur rences starting 08/02/2019 until 08/02/2019 Bacteria identified Cx Nom (U) Urine Culture Microbiology STAT 08/02/2019 1:00 PM EDT [place] End: 08-02-2019 Culture blood #1 Culture blood #1 Microbiology STAT One Time for 1 Occurrences starting 08/02/2019 until 08/02/2019 [place] Comment on above: One Time for 1 Occur rences starting 08/02/2019 until 08/02/2019 End: 08-02-2019 Culture blood #2 Culture blood #2 Microbiology STAT One Time for 1 Occurrences starting 08/02/2019 until 08/02/2019 [place] Comment on above: One Time for 1 Occur rences starting 08/02/2019 until 08/02/2019 EKG 12 Lead EKG 12 Lead ECG STAT 08/02/2019 12:25 PM EDT [place] Homogenous nuclear A b pattern [Titer] in [facility] Initiate Oxygen Ther apy Protocol Initiate Oxygen Therapy Protocol Respiratory Care Routine Daily until discontinued starting 08/02/2019, 2 completed [place] Comment on above: Daily until disconti nued starting 08/02/2019, 2 completed End: 08-02-2019 Lactate, Sepsis Lactate, Sepsis Lab Timed Now Then Every 2hr for 2 Occurrences starting 08/02/2019 until 08/02/2019, 1 completed [facility] [place] Comment on above: Now Then Every 2hr f or 2 Occurrences starting 08/02/2019 until 08/02/2019, 1 completed Nuclear Ab [Titer] i n Serum [facility] Patient Education [facility] Work Phone: Patient referral [facility] Work Phone: Potassium [Moles/vol ume] in Serum or Plasma [facility] Work Phone: Immunizations Immunization Date Immunization Notes Care Provider Fa melina 10-13-2021 COVID-19 Ad26.COV2.S (Vivint) DO Ming Espinoza Work Phone: [facility] Payers Date Payer Category Payer Unknown [employer] [address] xxxxxxxxx 2015-Present [phone] [address] [place] [address] xxxxxxxxx [id number] 1975 Unknown [id number] 1975 Unknown [id number] [id number] 1975 Unknown [id number] [id number] 1975 Unknown [id number] 2.16.840.1.489918.3.579.2.593 1975 Unknown [id number] 2.16.840.1.944642.3.579.2.593 1975 Unknown [id number] 2.16.840.1.815048.3.579.2.593 1975 Unknown [id number] 2.16.840.1.835729.3.579.2.593 1975 Unknown [id number] 2.16.840.1.180803.3.579.2.593 1975 Unknown [id number] 2.16.840.1.163527.3.579.2.593 1975 Unknown [id number] 2.16.840.1.809956.3.579.2.125 9 1975 Unknown [id number] 2.16.840.1.420626.3.579.2.125 9 1975 Unknown [id number] 2.16.840.1.937924.3.579.2.125 9 1975 Unknown [id number] 2.16.840.1.292848.3.579.2.125 9 1975 Unknown [id number] 2.16.840.1.436389.3.579.2.125 9 1959 Self-pay [id number] 1959 Unknown [id number] 1959 Unknown [id number] [id number] Unknown [id number] Unknown [id number] Unknown [id number] Unknown [id number] Social History Date Type Detail Facility Tobacco smoking status NHIS Unknown if ever smoked ReTenant Sex Assigned At Not on file ReTenant Sex Assigned At Sex Assigned At [facility] Other Start: 06-05-2022 End: 06-20-2022 Tobacco smoking status NHIS Never smoked tobacco (finding) [facility] Start: 1975 Sex Assigned At Female F [facility] Goals Date Patient Goal Desired Activity /State Clinical Notes 05-17-2020 to 06-15-2024 Note Date & Type Note Facility 06-15-2024 Note Patient notified of Augmentin Rx sent in to pharmacy for positive urine culture by NORMA Jasso per [employer] secure chat. Patient verbalizes understanding. [facility] 06-10-2024 Note Patient requests uri ne culture order to be refaxed to [facility]. as the hospital is telling her not received. Order promptly refaxed with confirmation received. Pt advised to FU with coordinator and alternative fax number if hospital reports again no receipt of the order. She acknowledged understanding [facility] 06-09-2024 Note Tac level 3.0, Mg 1. [address] Bernal. Per phone order increase Envarsus by 0.5mg daily for TDD 2mg and repeat tac level in 1 week. Also received order for Amiliride 5mg daily. Phone call to patient who states she has Amiliride but also her Mg is low because she has been forgetting to take her Magnesium. Reviewed taking Magnesium when she takes her Myfortic as well as magnesium rich foods. Patient verbalizes understanding. Patient also c/o dysuria and strong odor to urine. Contacted Dr. Blanchard and received order for urine culture. Patient requests order to be faxed to [facility]. [facility] 05-19-2024 Note Chief complaint: Rec urrent urinary tract infections History of Present Illness: Location: Urinary tract Duration: Since March Context/Modifying Factors: Has a history of polycystic kidney disease and recently had a renal transplant Associated signs and symptoms: Currently denies fevers or chills Review of Systems: A 10 point review of systems was performed and is otherwise negative unless included in the chief complaint, history of present illness, histories, or the assessment and plan. Social History: Social History Socioeconomic History Marital status: Spouse name: Not on file Number of children: Not on file Years of education: Not on file Highest education level: Not on file Occupational History Not on file Tobacco Use Smoking status: Never Passive exposure: Never Smokeless tobacco: Never Substance and Sexual Activity Alcohol use: Not Currently Comment: 2-3 a year , wine Drug use: Never Sexual activity: Defer Other Topics Concern Not on file Social History Narrative Not on file Social Determinants of Health Financial Resource Strain: Not on file Food Insecurity: Not on file Transportation Needs: Not on file Physical Activity: Not on file Stress: Not on file Social Connections: Not on file Intimate Partner Violence: Unknown (11/27/2023) [place] Safety & Environment Fear of Current or Ex-Partner: Not on file Emotionally Abused: Not on file Physically Abused: Not on file Sexually Abused: Not on file Physically or Sexually Abused: Not on file Housing Stability: Not on file Past Medical/Surgical History: Past Medical History: Diagnosis Date Anxiety Chronic kidney disease, stage 4 (severe) (CMS/[facility]) COVID-19 Depressive disorder Fibromyalgia Gastroesophageal reflux disease Gout Hypertension Multiple congenital cysts of kidney Family History: Family History Problem Relation Name Age of Onset Fibromyalgia Mother Heart disease Father Hypertension Sister Polycystic kidney disease Sister Hypertension Brother Polycystic kidney disease Brother Physical Exam: Constitutional: In no acute distress Psychiatric: Normal affect, alert and oriented HEENT: No scleral icterus Pulmonary: Is not laboring to breathe Cardiovascular: No obvious cyanosis of the extremities Extremities: No significant lower extremity edema Neurologic: Grossly nonfocal Skin: No jaundice Diagnoses: Recurrent urinary tract infections Assessment and Plan: The patient is a 48-year-old female evaluated in follow-up. She has a history of polycystic kidney disease. She underwent a donor renal transplant. Since March she has had multiple recurrent urinary tract infections. We will obtain a noncontrast CT of the abdomen and pelvis to assess for stone or obstruction. A prescription was also provided for methenamine prophylaxis. We will see her back after the CT. Sree Blanchard MD [facility] 04-29-2024 Note Patient urine cultur e/susceptible medications reviewed over the phone with Dr. Bernal. New orders for Amoxicillin 500 mg for 7 days. Patient recently had renal ultra sound done. New referral for urology. Coordinator spoke with urology, patient scheduled for May 19 at 3:30. Standing order placed for urinalysis for patient to obtain around May 14, IF continuing to have symptoms of UTI, this way it is fresh results prior to urology appointment. Patient verbalized understanding. [facility] 04-27-2024 Note 04/27/24 Chief Complaint Patient presents with Kidney Follow-up Pt states she keeps getting a continuous UTI has been going on for months, has been on many antibiotics. Last Ori pt did a urine and it came back clean. Pt states previous urine sample came back with E.Coli at family doctor. Pt wanted to know if potassium can be decreased to 10 mg because they are smaller pills. PCP: Ming Espinoza MD Txp Referring: Felecia Barriga Pharmacy: [facility] - [place], [place] - [address] [place] [address] [place] [address] [facility] [address] [facility]/pharmacy #[id number] - [place], [place] - [address] [facility] AT CORNER OF [address] [address] [facility] 105 [facility] 105 [facility] [address] Subjective Visit Vitals BP 121/60 (BP Location: [...] Dose Status amLODIPine (Norvasc) 10 mg tablet [id number] Yes Take 1 tablet (10 mg) by mouth in the morning. Aguila Parrish MD Taking Active bumetanide (Bumex) 2 mg tablet [id number] Take 1 tablet (2 mg) by mouth in the morning. Patient not taking: Reported on 11/08/2022 Aguila Parrish MD 10/25/22 2359 docusate sodium (Colace) 100 mg capsule [id number] Take 1 capsule (100 mg) by mouth in the morning and at bedtime. Patient not taking: Reported on 09/01/2023 Paty Ansari NP Active DULoxetine (Cymbalta) [address] capsule [id number] Yes Take 1 capsule every day by oral route. Historical ProviderMD Taking Active Envarsus XR 1 mg tablet ER [id number] Yes TAKE 3 TABLETS BY MOUTH ONCE DAILY IN THE MORNING. TAKE ALONG WITH 0.75 MG TABLETS DIRECTED FOR TOTAL DOSE UP TO 4.5 MG PER DAY. Patient taking differently: Take 2 mg by mouth in the morning. Aguila Parrish MD Taking Flag for Review famotidine (Pepcid) 20 mg tablet [id number] Yes Take 1 tablet (20 mg) by mouth in the morning. Patient taking differently: Take 20 mg by mouth if needed. Aguila Parrish MD Taking Active febuxostat (Uloric) 40 mg tablet [id number] Take 0.5 tablets every day by oral route. Historical ProviderMD Active ferrous sulfate 325 (65 Fe) MG tablet [id number] Yes Take 65 mg by mouth every other day. Historical Provider, Taking Active fish oil (Comfrey-3) 60-90-500 mg capsule [id number] Take 2 capsules (1,000 mg) by mouth in the morning and at bedtime. Patient not taking: Reported on 12/23/2023 Sujit Bernal MD Active Levemir FlexPen 100 unit/mL (3 mL) pen [id number] INJECT 12 UNITS SUBCUTANEOUS IN AM 30 DAYS Historical ProviderMD Active magnesium oxide (Mag-Ox) 400 mg (241.3 mg magnesium) tablet [id number] Yes TAKE 2 TABLETS BY MOUTH IN THE MORNING AND 2 TABLETS AT BEDTIME Sree Blanchard MD Taking Active mycophenolate (Myfortic) 180 mg EC tablet [id number] Yes Take 4 tablets (720 mg) by mouth in the morning and at bedtime. Aguila Parrish MD Taking Active oxyCODONE-acetaminophen (Percocet) 5-325 mg tablet [id number] Take 1 tablet by mouth every 6 (six) hours if needed for severe pain (8-10 pain score) for up to 20 doses. Patient not taking: Reported on 09/01/2023 Paty Ansari NP Active potassium chloride CR (Klor-Con M20) 20 mEq ER tablet [id number] Yes Take 1 tablet (20 mEq) by mouth in the morning. Do not crush or chew. Andrea Elizondo MD Taking Active pravastatin (Pravachol) 40 mg tablet [id number] Yes Take 1 tablet (40 mg) by mouth at bedtime. Patient taking differently: Take 40 mg by mouth at bedtime. 40 mg 4 times a week. Fri Sat Kevin Raymond MD Taking Active semaglutide (Ozempic) 2 mg/dose (8 mg/3 mL) pen injector [id number] Yes Inject 2 mg under the skin every 7 (seven) days. Historical Provider, Taking Active tacrolimus ER (Envarsus XR) 0.75 mg tablet ER [id number] Yes Take 2 tablets (1.5 mg) by mouth in the morning. Script total 4.5 mg daily Priyanka Villanueva MD Taking Active tacrolimus ER (Envarsus XR) 1 mg tablet ER [id number] Yes Take 3 tablets (3 mg) by mouth in the morning. Script total 4.5 mg daily Priyanka Villanueva MD Taking Active Immunization History Administered Date(s) Administered Vivint Sars-Cov-2 Vaccination 10/13/2021 Patient Active Problem List Diagnosis Anxiety COVID-19 Depressive disorder Gastroesophageal reflux disease Gout Primary hyper (more content not included)... [facility] 04-23-2024 Note Patient TAC level, 1 0.5, [...] making change in dose. Patient verbalized understanding. [facility] 04-21-2024 Note Patient called, stat es she [...] urine culture to be done, voiced understanding. [facility] 03-25-2024 Note Patient called, stat es PCP stopped Bactrim and started Keflex for E-coli in urine. On 500 mg tid x 7 days. Advised to hydrate well and get labs, repeat urine culture once completed. Voiced understanding. [facility] 03-16-2024 Note Patient called benigno borrero she is currently being treated for a UTI with bactrim BID for 7 days. [facility] 02-25-2024 Note Received a call from the patient regarding the non-compliant lab letter. Explained to the patient that we had gotten some labs on her but not a CMP or BMP. Patient stated that she has always gotten her labs drawn at [facility]. She will be getting labs drawn tomorrow and she will make sure that the draw the correct labs and have the results sent to us. [facility] 12-23-2023 Note 12/23/23 Chief Complaint Patient presents with Kidney Follow-up Pt has questions about her lab work. PCP: Ming Espinoza MD Txp Referring: Yaneth Muñoz Preferred Pharmacy: [facility] - [place], [place] - [address] [place] [address] [place] [address] [facility] [address] [facility]/pharmacy #[id number] [place], [place] - [address] [place] [address] [address] [address] [facility] [place] [address] [facility] [address] [facility] [address] Subjective Visit Vitals BP 116/73 (BP Location: [...] Review Audit Reviewed by Trupti Sanchez MA (Fold Skiver) on 12/23/23 at 1430 Medication Order Taking? Sig Documenting Provider Last Dose Status amLODIPine (Norvasc) 10 mg tablet [id number] Take 1 tablet (10 mg) by mouth in the morning. Aguila Parrish MD 10/24/23 2359 bumetanide (Bumex) 2 mg tablet [id number] Take 1 tablet (2 mg) by mouth in the morning. Patient not taking: Reported on 11/08/2022 Aguila Parrish MD 10/25/22 2359 docusate sodium (Colace) 100 mg capsule [id number] Take 1 capsule (100 mg) by mouth in the morning and at bedtime. Patient not taking: Reported on 09/01/2023 Paty Ansari, NORMA Active DULoxetine (Cymbalta) [address] capsule [id number] Yes Take 1 capsule every day by oral route. Historical Provider, Taking Active Envarsus XR 1 mg tablet ER [id number] Yes TAKE 3 TABLETS BY MOUTH ONCE DAILY IN THE MORNING. TAKE ALONG WITH 0.75 MG TABLETS DIRECTED FOR TOTAL DOSE UP TO 4.5 MG PER DAY. Patient taking differently: Take 2 mg by mouth in the morning. Aguila Parrish MD Taking Active famotidine (Pepcid) 20 mg tablet [id number] Yes Take 1 tablet (20 mg) by mouth in the morning. Patient taking differently: Take 20 mg by mouth if needed. Aguila Parrish MD Taking Active febuxostat (Uloric) 40 mg tablet [id number] Take 0.5 tablets every day by oral route. Historical ProviderMD Active ferrous sulfate 325 (65 Fe) MG tablet [id number] No Take 65 mg by mouth every other day. Historical ProviderMD Not Taking Active fish oil (Comfrey-3) 60-90-500 mg capsule [id number] No Take 2 capsules (1,000 mg) by mouth in the morning and at bedtime. Patient not taking: Reported on 12/23/2023 Sujit Bernal MD Not Taking Active Levemir FlexPen 100 unit/mL (3 mL) pen [id number] No INJECT 12 UNITS SUBCUTANEOUS IN AM 30 DAYS Historical Provider, Not Taking Flag for Review magnesium oxide (Mag-Ox) 400 mg (241.3 mg magnesium) tablet [id number] Yes TAKE 2 TABLETS BY MOUTH IN THE MORNING AND 2 TABLETS AT BEDTIME Sree Blanchard MD Taking Active mycophenolate (Myfortic) 180 mg EC tablet [id number] Yes Take 4 tablets (720 mg) by mouth in the morning and at bedtime. Aguila Parrish MD Taking Active oxyCODONE-acetaminophen (Percocet) 5-325 mg tablet [id number] Take 1 tablet by mouth every 6 (six) hours if needed for severe pain (8-10 pain score) for up to 20 doses. Patient not taking: Reported on 09/01/2023 Paty Ansari NP Active potassium chloride CR (Klor-Con M20) 20 mEq ER tablet [id number] Yes Take 1 tablet (20 mEq) by mouth in the morning. Do not crush or chew. Andrea Elizondo MD Taking Active pravastatin (Pravachol) 40 mg tablet [id number] Yes Take 1 tablet (40 mg) by [...] Smokeless tobacco: Cara (more content not included)... [facility] 10-02-2023 Note Per phone order Tyler sorto MD, increase Kdur from 10meq every day to 20meq every day due to K 3.2 on 09/26/23. Pt informed and verbalized understanding. Amiloride removed from her MAR as she reported in July she is not taking and reconfirmed today. [facility] 09-01-2023 Note ---- Attestation signed by [...] making adequate urine output with no proteinuria. [place] kidneys with adult polycystic kidney disease BK [...] for dysphoric moo (more content not included)... [facility] 08-06-2023 Note For K-level of 3.4, left VM to start Kdur [address] Bernal po. [facility] 07-24-2023 Note Per phone order Minerva morel MD, discontinue amiloride due to side effects and recheck her CMP in 2 weeks as serum K may drop. This coordinator spoke with Ramila victor in lab to complete CMP today. DSA reentered for next lab draw. Pt notified by phone and verbalized understanding. [facility] 07-24-2023 Note PT reports not lindsay ating the Amiloride with daily watery diarrhea (no longer formed) x 1 since starting medication with nausea and indigestion/acid reflux aggravated at times even with water. Pt will complete FU CMP and hold this medication pending review with [place] transplant provider. Advised her DSA collection is due as well and she verbalized understanding. Denies fever, chills or being around persons known to be ill. [facility] 07-24-2023 Note Per Shelly aGona BM P specimen not available. Notified Loc FIERRO by phone and per his phone order, will repeat this labs in 7-10 days and pt was notified by phone and she verbalized understanding. Pt needs copy of her standing lab order. Will prepare for her pickup. [facility] 07-17-2023 Note Reviewed todays labs in person with Guillermo FIERRO and per his verbal order, pt should stop the oral potassium daily dosing and resume the Amiloride 5mg every day dosing with FU labs in one week to check for elevation in potassium. Pt verbalized understanding by phone and her RV will be rescheduled before the end of the year with [place] transplant by clinic [facility]. Per Loc FIERRO, the pt may discontinue her Prednisone 5mg every other day dosing and she acknowledged. Tac pending. [facility] 07-16-2023 Note Pt reports stopping Amiloride 5mg every day and starting Potassium 20meq every day & Ozempic 1mg subcutaneous weekly per PCP with improved glucose control. Monitors BP and no concerns. She will present to lab tomorrow for testing. Pt agrees and verbalized understanding. Pt to located her standing lab order for use @ [facility] prn. [facility] 07-16-2023 Note Reviewed by phone wi dahlia Bernla MD pt input about her medication changes by PCP including stopping Amiloride. agreed to reschedule her 07/18 RV and review labs tomorrow by phone. Clinic [place] team informed to reschedule pt. [facility] 07-10-2023 Note Returned 0816 voicem ail to pt asking about dental work antibiotic prophylaxis. Confirmed with pt no allergies to antibiotics and advised to take Amoxicillin 2 grams PO 30-60 minutes prior to dental work or cleanings and she verbalized understanding. PT will contact her dentist for RX she stated. [facility] 07-30-2022 Evaluation note Encounter Date Diagnosis [...] She has gout and follows with a mold engraver. She takes Urolic and denies any recent gout flare Jul, Metabolic acidemia, unspecified (ICD-10 - P19.9) She has metabolic acidosis due to the advanced CKD. Continue oral Sodium Bicarbonate [facility] Other 09-28-2022 Evaluation note* Encounter Date Diagnosis [...] disease, unspecified CKD stage (ICD-10 - N18.9) [facility]* Encounter Date Diagnosis Assessment Notes Treatment Notes Treatment Clinical Notes May, Pre-op testing (ICD-10 - Z01.818) [facility] 08-25-2022 Evaluation note* Encounter Date Diagnosis [...] will schedule this in the near future. [facility] 07-28-2022 Evaluation note* Encounter Date Diagnosis [...] explained to her the potential need of LANDSCAPE PHOTOGRAPHER in future. I discussed with her different options of LANDSCAPE PHOTOGRAPHER including PD, HTN renal transplant. I provide [...] stephens s gout and follows with a mold engraver. She takes Urolic and denies any recent gout flare [facility] Other 07-26-2022 Evaluation note* Encounter Date Diagnosis [...] care provider if no improvement of symptoms. [facility] 05-24-2022 Evaluation note* Encounter Date Diagnosis Assessment Notes Treatment Notes Treatment Clinical Notes February, Screening for colon cancer (ICD-10 - Z12.11) [facility] 03-03-2022 Evaluation note* Encounter Date Diagnosis [...] explained to her the potential need of LANDSCAPE PHOTOGRAPHER in future. I discussed with her different options of LANDSCAPE PHOTOGRAPHER including PD, HTN renal transplant. I provide [...] She has gout and follows with a mold engraver. She takes Urolic and denies any recent gout flare [facility] 06-25-2021 NotePatient Outreach (NEPHMN) MANDEEP PURI ([id number]) 1975 F Date Time Provider Department 03/30/21 PERRI BARRETT During your visit today, we recorded the following information about you: Allergies As of Date: 03/30/2021 Noted Allergy Reaction ALLOPURINOL 08/02/2019 4 - Hives Date Reviewed: 03/30/2021 Reviewed by: Perri Barrett MD - Fully Assessed Visit Diagnosis:Screening for genitourinary condition [Z13.89] Order(s):URINALYSIS, DIPSTICK ONLY [SQUA] Order #: [id number]. #:[id number] Prescriptions as of 03/30/2021 Sig: DULOXETINE 60 [...] dis*03/30/2021 Encounter Status:Closed by EPIC, PRODUSER on 04/02/21[facility] 03-30-2021 NoteHNO ID: [id number] Author: Perri Barrett MD Service: ? Author Type: Physician Type: Progress Notes Filed: 03/30/2021 10:25 AM Note Text: Mrs. 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 sirolimus (rapamycin) [facility] general Narrative - Reported * Type Description Date Medical History HTN (hypertension) Medical History Anxiety Medical History polycystic kidneys Medical History COVID 05-17-2020 Surgical History C section Surgical History BREAST REDUCTION Hospitalization History child Hospitalization History KIDNEY INFECTION 07/2019 Hospitalization History COVID AND DEHYDRATION [facility] Other 08-12-2020 History general Narrative - Reported* Type Description Date Medical History HTN (hypertension) Medical History Anxiety Medical History polycystic kidneys Medical History COVID 05-17-2020 Medical History end stage renal disease Surgical History C section Surgical History BREAST REDUCTION Surgical History colonoscopy 04/01/2022 Surgical History wisdom teeth 03/24/2022 Hospitalization History child Hospitalization History KIDNEY INFECTION 07/2019 Hospitalization History COVID AND DEHYDRATION [facility] Other 08-12-2020 History general Narrative - Reported* [...] INFECTION 07/2019 Hospitalization History COVID AND DEHYDRATION [facility] Other 08-12-2020 History general Narrative - Reported* [...] INFECTION 07/2019 Hospitalization History COVID AND DEHYDRATION [facility] Other Evaluation noteNo assessment information available [facility] Work Phone: Evaluation noteNo InformationNortHahn[facility] Other Evaluation note* Diagnosis Onset Date Resolution Status Dysuria acute UTI (urinary tract infection) acute [facility] Work Phone: Assessments Diagnosis Acute sepsis (HCC)- Primary Acute cystitis without hematuria Acute cystitis Chronic renal failure, stage 4 (severe) (HCC) Polycystic kidney disease Polycystic kidney, unspecified type Advance Directives No Advanced Directives Records FoundDocuments on File Type Date Recorded 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 Advance Directives and Living Will Power of [place] Advance Directive Response Recorded Date/ Time Advance [...] AUTHOR AUTHOR'S ORGANIZ ATION 04/28/2020 [facility] Mel[facility] DATE CREATED AUTHOR AUTHOR'S ORGANIZ ATION 09/12/2020 [facility] DATE CREATED AUTHOR AUTHOR'S ORGANIZ ATION 11/07/2021 [facility] DATE CREATED AUTHOR AUTHOR'S ORGANIZ ATION 02/27/2022 [facility] DATE CREATED AUTHOR AUTHOR'S ORGANIZ ATION 08/04/2022 [facility] DATE CREATED AUTHOR AUTHOR'S ORGANIZ ATION 03/22/2024 [facility] DATE CREATED AUTHOR AUTHOR'S ORGANIZ ATION 04/21/2024 [facility] EPIC DATE CREATED AUTHOR AUTHOR'S ORGANIZ ATION 06/17/2024 [facility] Care Teams (unrecognized sec tion [...] BE BASED ON THE PRIMARY CLINICAL RECORDS. [facility] [employer] provides no warranty or guarantee of the accuracy or completeness of information in this document.
[2024-06-29 09:10] LABS: Basophils Percent Auto 0.4 % (0.2-2.0); Eosinophils Absolute Auto 0.2 10^3/uL (0.0-0.7); Eosinophils Percent Auto 2.4 % (0.9-7.0); Hematocrit 37.7 % (36.0-48.0); Hemoglobin 11.9 g/dL (12.0-16.0); Immature Granulocytes Abs Auto 0.03 10^3/uL (0.00-0.03); Immature Granulocytes Pct Auto 0.4 % (0.0-0.5); Lymphocytes Absolute Auto 1.1 10^3/uL (1.2-3.8); Lymphocytes Percent Auto 14.8 % (20.5-60.0); Mean Corpuscular HGB Conc 31.6 g/dL (29.9-35.2); Mean Corpuscular Hemoglobin 27.9 pg (26.7-34.0); Mean Corpuscular Volume 88.3 fL (81.0-99.0); Mean Platelet Volume 8.6 fL (9.5-13.5); Monocytes Absolute Auto 0.4 10^3/uL (0.3-0.8); Monocytes Percent Auto 5.1 % (1.7-12.0); Neutrophils Absolute Auto 5.7 10^3/uL (1.4-6.5); Neutrophils Percent Auto 76.9 % (43.0-75.0); Platelet Count 333 10^3/uL (150-450); Red Blood Count 4.27 10^6/uL (4.20-5.40); Red Cell Distribution Width 15.5 % (11.0-15.0); White Blood Count 7.5 10^3/uL (4.0-11.0)
[2024-06-29 10:05] LABS: Alanine Aminotransferase 19 U/L (14-59); Albumin Globulin Ratio 0.9; Albumin Level 3.7 g/dL (3.4-5.0); Alkaline Phosphatase 87 U/L (46-116); Anion Gap 12.4; Aspartate Amino Transferase 15 U/L (15-37); Bilirubin Direct 0.1 mg/dL (0.0-0.2); Bilirubin Total 0.4 mg/dL (0.2-1.0); Calcium 9.4 mg/dL (8.5-10.1); Carbon Dioxide 25.3 mmol/L (21.0-32.0); Chloride 103 mmol/L (98-107); Chol HDL Ratio 3.6; Cholesterol 189 mg/dL (<=200); Estimated GFR (African America >60 (>=60); Estimated GFR (Non-African Ame 54 (>=60); Globulin 4.2 g/dL; Glucose 91 mg/dL (74-106); HDL Cholesterol 52 mg/dL (40-60); Magnesium 1.8 mg/dL (1.8-2.4); Phosphorus 2.8 mg/dL (2.6-4.7); Potassium 3.7 mmol/L (3.5-5.1); Sodium 137 mmol/L (136-145); Total Protein 7.9 g/dL (6.4-8.2); Triglycerides 172 mg/dL (<=150); VLDL CHOLESTEROL 34.4 mg/dL
[2024-07-01 22:07] LABS: Tacrolimus (FK506), Blood 6.9 ng/mL (2.0-20.0)
== END 2024-06-29 08:45 | disposition home or self-care (01) ==
LOC: LAB 08:46
PROVIDERS: PCP Internal Medicine; Visit Provider Internal Medicine Nephrology
DX: Z94.0 Kidney transplant status (principal); R73.01 Impaired fasting glucose; E78.5 Hyperlipidemia, unspecified; R60.9 Edema, unspecified
CPT/HCPCS: 36415; 80053; 80061; 80197; 82248; 83735; 84100; 84550; 85025

== ENCOUNTER 2024-07-31 09:00 | Outpatient (OUT) | payer OTHER, SELFPAY ==
--- OUTSIDE RECORDS SUMMARY | 2024-07-31 09:05 | XMS_ITS | CCD ---
Author Organization [facility] Care Team Providers Care Shutdown Planner Name Role Phone Ming Espinoza Primary Care Provider VIDAL MADRIGAL Attending Unavailable MING ESPINOZA Primary Care Unavailable Toni, Yaneth Unavailable Shabbir Jones Unavailable Dipika Stinson Unavailable Jesus Parham Unavailable DO Ming Espinoza Primary Care Provider [phone] MD Shabbir Jones Attending Provider MD Yaneth Muñoz Attending Provider [phone] MD Jesus Parham Attending Provider Estefania Vo Unavailable DO Ming Espinoza Primary Care Provider EB Forman Emergency Provider DO Blake Hinojosa Attending Provider [phone] ANGELAC, DR ZARAGOZA Admitting Unavailable DR MING [...] Attending Unavailable TONI, YANETH Consulting Unavailable DR JAYCEE BRINDA Admitting Unavailable ALEXIS, DR ACOSTA Primary Care Unavailable JAYCEE, DR PARRY Attending Unavailable JAYCEE, DR PARRY Consulting Unavailable JAYCEE, DR MORALES Attending Unavailable JAYCEE, DR MORALES Admitting Unavailable ALEXIS, DR ACOSTA Primary Care Unavailable ALEXIS, DR ACOSTA Primary Care Unavailable MISC, DR ZARAGOZA Admitting Unavailable MISC, DR ZARAGOZA Attending Unavailable MISC, DR ZARAGOZA Consulting Unavailable TONIYANETH Admitting Unavailable ALEXIS, DR ACOSTA Primary Care Unavailable TONI, YANETH Attending Unavailable TONI, YANETH Consulting Unavailable DO Alexis Ming Primary Care Provider [phone] MD Perri Ceja Attending Provider CECILIA Edwards Attending Provider Self, Referral Admitting Unavailable Self, Referral Attending Unavailable Ming Espinoza Primary Care Unavailable Blake Hinojosa Referring Unavailable Perri Ceja Admitting Unavailable Perri Ceja Attending Unavailable Ming Espinoza [facility] Care Unavailable Andreia Edwards Admitting Unavailable Andreia Edwards Attending Unavailable SREE BLANCHARD Referring Unavailable RABCAREY, SREE Attending Unavailable RABCAREY, SREE Attending Unavailable DOLORESSUJIT Referring Unavailable MUNIRA PHAN Attending Unavailable MUNIRA PHAN Attending Unavailable Ming Espinoza DO Unavailable [phone] Ming Espinoza DO Primary Care Provider MING ESPINOZA Attending Unavailable MING ESPINOZA Referring Unavailable MING ESPINOZA Referring Unavailable LUCERO HUDSON Attending Unavailable MING ESPINOZA Attending Unavailable MUNIRA PHAN Referring Unavailable BLAKE HINOJOSA Attending Unavailable BLAKE HINOJOSA Referring Unavailable MING ESPINOZA Referring Unavailable LUCERO HUDSON Attending Unavailable Allergies Allergy Classification Reported Allergen(s) Allergy Type Date of Onset Reaction(s) Facility (15 sources) Allopurinol; Translations: [ALLOPURINOL] Drug Allergy 9 hives, Rash [place], [place] (10 sources) venlafaxine; Translations: [venlafaxine] Drug Allergy 2 Rash, Rash, hives [facility] (1 source) Allopurinol Drug Allergy 4 [facility] Repository (3 sources) venlafaxine; Translations: [VENLAFAXINE HCL] Drug Allergy 1 [facility] Repository Medications Current Medications Medication Drug Class(es) Dates Sig (Normalized) Sig (Original) amLODIPine 10 mg oral tablet (3 sources) Dihydropyridine Calcium Channel Eliz Start: 06-28-2024 take 1 tablet by mouth once daily in the morning amLODIPine (Norvasc) 10 MG tablet Indications: Benign essential hypertension (CMS/HCC) TAKE 1 TABLET BY MOUTH EVERY DAY IN THE MORNING 90 tablet 3 06/28/2024 Active Start: 03-15-2024 take 10 mg by mouth once daily Amlodipine Active 10 MG PO Daily March 15, 2024 12:00am amoxicillin 875 mg / clavulanate 125 mg oral tablet (4 sources) Penicillin-class Antibacterial Start: 07-27-2024 End: 08-03-2024 take 1 tablet by mouth in the morning amoxicillin-clavulanate (Augmentin) 875-125 MG tablet Indications: Acute non-recurrent pansinusitis Take 1 tablet (875 mg) by mouth in the morning and 1 tablet (875 mg) before bedtime. Do all this for 7 days. 14 tablet 07/27/2024 08/03/2024 Active Start: 04-30-2022 take 1 tablet by denys th every twelve hours Amoxicillin-Pot Clavulanate 875-125 MG 1 tablet Orally every 12 hrs for 7 days Apr, Active {1 (ascorbic acid 7540 MG / polyethylene glycol 3350 76607 MG / potassium chloride 1200 MG / sodium ascorbate 08474 MG / sodium chloride 3200 MG Powder for Oral Solution) / 1 (polyethylene glycol 3350 963742 MG / potassium chloride 1000 MG / sodium chloride 2000 MG / sodium sulfate 9000 MG Powder for Oral Solution) } Pack [Plenvu] (1 source) Osmotic Laxative, Vitamin C Start: 02-26-2022 Plenvu 140 GM dose 1 pouch at 4pm, dose 2 pouch A & B at 11pm Orally twice a day for 1 days BIN:[id number] PCN: [id number] GROUP:[id number] ID:[id number] February, Active cephalexin 500 mg oral capsule (20 sources) Cephalosporin Antibacterial Start: 03-22-2024 End: 07-27-2024 cephalexin (Keflex) 500 MG capsule Take 500 mg by mouth 03/22/2024 07/27/2024 Discontinued (Therapy completed) Start: 04-01-2022 End: 06-05-2022 take 500 mg [...] 20, 2019 12:00am August 02, 2019 5:51pm cetirizine hydrochloride 10 mg oral tablet (10 sources) Histamine-1 Receptor Antagonist Start: 03-15-2024 take 1 tablet by mouth once daily as needed Cetirizine (Zyrtec) 10 mg tablet Active 10 MG PO Daily March 15, 2024 12:00am FreeTextSi tablet as needed Orally Once a day; Note: Source Status: Taking; Provider: Delma Whitney ( ) take 1 tablet by denys th once daily as needed ZyrTEC Allergy 10 MG 1 tablet as needed Orally Once a day Active DULoxetine 60 mg delayed release oral capsule (18 sources) Serotonin and Norepinephrine Reuptake Inhibitor Start: 06-28-2024 take 1 capsule by mouth once daily DULoxetine (Cymbalta) [address] capsule Indications: Fibromyalgia TAKE 1 CAPSULE BY MOUTH EVERY DAY 90 capsule 2 06/28/2024 Active Start: 01-19-2019 take 60 mg by mouth once daily in the morning Duloxetine Active 60 MG PO Every morning January 19, 2019 12:00am DULoxetine HCl ( CYMBALTA PO) Take by mouth 0 Active ferrous sulfate 325 mg oral tablet (20 sources) Start: 03-15-2024 take 325 mg by mouth once daily Ferrous Sulfate Active 325 MG PO Daily March 15, 2024 12:00am Start: 04-01-2022 End: 03-15-2024 take 27 mg by mouth every other day Ferrous Sulfate Discontinued 27 MG PO Q2D April 01, 2022 12:00am March 15, 2024 5:30pm Start: 07-10-2021 take 1 tablet by denys th every other day ferrous sulfate 325 (65 Fe) MG tablet Take 1 tablet by mouth every other day. 07/10/2021 Active Start: 08-05-2019 End: 04-01-2022 take 324 mg by mouth twice daily Ferrous Sulfate Discontinued 324 MG PO Twice daily 60 August 05, 2019 12:00am April 01, 2022 7:05am Start: 01-20-2019 End: 08-02-2019 take 324 mg by mouth twice daily Ferrous Sulfate Discontinued 324 MG PO Twice daily 60 January 20, 2019 12:00am August 02, 2019 5:52pm fluconazole 150 mg oral tablet (2 sources) Azole Antifungal Start: 07-27-2024 End: 07-28-2024 fluconazole (Diflucan) 150 MG tablet Indications: Side effect of medication Take 1 tablet (150 mg) by mouth See administration instructions for 1 day Take one tab now. Repeat in 72 hours if symptoms persist. 2 tablet 07/27/2024 07/28/2024 Active furosemide 20 mg oral tablet (9 sources) Loop Diuretic take 1 tablet by mouth once daily as needed Furosemide 20 MG TAKE 1 TABLET BY MOUTH EVERY DAY for 90 PRN Active 3 ml insulin detemir 100 unt/ml pen injector (2 sources) Insulin Analog Levemir FlexPen 100 UNIT/ML pen Inject 12 Units under the skin in the morning. Active Iron (9 sources) take 1 tablet by mouth every other day Iron (Ferrous Sulfate) 325 (65 Fe) MG 1 tablet Orally every other day Active magnesium oxide 400 mg oral tablet (3 sources) Start: 03-31-2024 take 2 tablets by mouth in the morning magnesium oxide (Mag-Ox) 400 MG tablet TAKE 2 TABLETS BY MOUTH IN THE MORNING AND 2 TABLETS AT BEDTIME 03/31/2024 Active Start: 03-15-2024 take 800 mg by mouth once daily at bedtime Magnesium Oxide Active 800 MG PO Daily at bedtime March 15, 2024 12:00am Multivitamin (Multiple Vitamins) tablet (1 source) Start: 03-15-2024 take 1 tablet by mouth once daily Multivitamin (Multiple Vitamins) tablet Active 1 TAB PO Daily March 15, 2024 12:00am Multivitamin preparation (9 sources) take 1 tablet by mouth once daily Multi Vitamin - 1 tablet Orally Once a day Active MYCOPHENOLATE (1 source) Start: 03-15-2024 take 180 mg by mouth once daily Mycophenolate Sodium Active 180 MG PO Daily March 15, 2024 12:00am mycophenolic acid 180 mg delayed release oral tablet (2 sources) Antimetabolite Immunosuppressant take 4 tablets by mouth in the morning mycophenolate (Myfortic) 180 MG EC tablet Take 4 tablets by mouth in the morning and 4 tablets before bedtime. Active microencapsulated potassium chloride 20 meq extended release oral tablet (2 sources) take 1 tablet by mouth once daily KLOR-CON 20 MEQ ER tablet Take 20 mEq by mouth Daily Active Potassium Chloride (Klor-Con M20) 20 mEq tablet,ER particles/crystals (1 source) Start: 03-15-2024 Potassium Chloride (Klor-Con M20) 20 mEq tablet,ER particles/kylee ls Active 20 MEQ PO Daily March 15, 2024 12:00am pravastatin sodium 40 mg oral tablet (3 sources) HMG-CoA Reductase Inhibitor Start: 03-15-2024 take 40 mg by mouth once daily Pravastatin Active 40 MG PO Daily March 15, 2024 12:00am Semaglutide (Ozempic) 2 mg/dose (8 mg/3 mL) pen injector (1 source) Start: 03-15-2024 Semaglutide (Ozempic) 2 mg/dose (8 mg/3 mL) pen injector Active MG SUBCUT March 15, 2024 12:00am semaglutide (Ozempic, 1 MG/DOSE,) 4 MG/3ML solution pen-injector (2 sources) Start: 06-29-2024 inject 1 mg by subcutaneous injection every week semaglutide (Ozempic, 1 MG/DOSE,) 4 MG/3ML solution pen-injector Indications: Type 2 diabetes mellitus with other specified complication, without long-term current use of insulin (CMS/HCC) INJECT 1 MG UNDER THE SKIN 1 (ONE) TIME PER WEEK 3 mL 3 06/29/2024 Active 3 ml sodium chloride 9 mg/ml injection [...] tacrolimus 1 mg extended release oral tablet (3 sources) Calcineurin Inhibitor Immunosuppressant Start: 03-15-2024 Tacrolimus (Envarsus [...] PO Daily August 02, 2019 12:00am calcitriol 0.62983 mg oral capsule (6 sources) Vitamin D3 [...] in sterile water 10 mL IV syringe ciprofloxacin 250 mg oral tablet (6 sources) Quinolone Antimicrobial Start: 05-15-2020 End: 04-01-2022 take 1 tablet by mouth every twelve hours Ciprofloxacin Hcl (Cipro) 250 mg tablet Discontinued 250 MG PO Q12H 6 3 May 15, 2020 12:00am April 01, 2022 7:03am ergocalciferol 1.25 mg oral capsule (6 sources) Provitamin D2 Compound Start: 01-20-2019 End: 08-02-2019 take 88600 [IU] by mouth every month Ergocalciferol (Vitamin D2) Discontinued 79523 UNIT PO every month January 20, 2019 [...] Problem Classification Problem Date Documented Date Episodic/Chronic Abdominal pain (2 sources) Pelvic and perineal pain; Translations: [Pelvic and perineal pain] Onset: 10-02-202 4 Episodic Acute and chronic tonsillitis (12 sources) Amygdalolith; Translations: [Other chronic diseases of tonsils and adenoids] Onset: 4 03-15-2024 Chronic Acute and unspecified renal failure (1 source) Chronic renal failure; Translations: [Chronic renal failure, stage 4 (severe) ([facility])] Chronic Acute and unspecified renal failure (6 sources) Injury of kidney; Translations: [Acute kidney failure, unspecified] 01-19-2019 Episodic Acute myocardial infarction (8 sources) Myocardial infarction; Translations: [Non-ST elevation (NSTEMI) myocardial infarction] Onset: 4 08-03-2019 Chronic Anxiety disorders (5 sources) Anxiety; Translations: [Anxiety disorder, unspecified] Onset: 9 03-15-2024 Chronic Chronic kidney disease (20 sources) Chronic kidney disease stage 4; Translations: [Chronic kidney disease, stage 4 (severe)] Onset: 2 Resolved: 3 Chronic Complications of surgical procedures or medical care (2 sources) Drug therapy finding; Translations: [Unspecified adverse effect of drug or medicament, initial encounter] 07-27-2024 Episodic Deficiency and other anemia (17 sources) Anemia of renal disease; Translations: [Anemia in chronic kidney disease] Onset: 4 01-19-2019 Chronic Deficiency and other anemia (8 sources) Anemia in chronic kidney disease; Translations: [ANEMIA IN CHRONIC KIDNEY DISEASE] Onset: 1 Resolved: 2 Chronic Diabetes mellitus with complications (2 sources) Chronic kidney disease due to type 2 diabetes mellitus; Translations: [Type 2 diabetes mellitus with diabetic chronic kidney disease] Onset: 3 03-04-2023 Chronic Disorders of lipid metabolism (2 sources) Dyslipidemia; Translations: [Hyperlipidemia, unspecified] Onset: 3 06-10-2023 Chronic Esophageal disorders (2 sources) Gastroesophageal reflux disease; Translations: [Gastro-esophageal reflux disease without esophagitis] Onset: 2 06-10-2023 Chronic Essential hypertension (4 sources) Benign essential hypertension; Translations: [Essential (primary) hypertension] Onset: 3 Resolved: 3 03-04-2023 Chronic Fever of unknown origin (6 sources) Fever; Translations: [Fever, unspecified] 05-22-2020 Episodic Genitourinary congenital anomalies (20 sources) Polycystic kidney disease, adult type; Translations: [Polycystic kidney, adult type] Onset: 1 Resolved: 2 Chronic Genitourinary congenital anomalies (1 source) Multiple renal cysts; Translations: [Polycystic kidney disease] Episodic Genitourinary symptoms and ill-defined conditions (10 sources) Dysuria; Translations: [Dysuria] Onset: 4 01-19-2019 Episodic Gout and other crystal arthropathies (18 sources) Gout; Translations: [Gout, unspecified] Onset: 2 Resolved: 3 Chronic Hypertension with complications and secondary hypertension [...] Episodic Other diseases of kidney and ureters (18 sources) Secondary hyperparathyroidism; Translations: [Secondary hyperparathyroidism of renal origin] Onset: 4 01-19-2019 Chronic Other diseases of kidney and ureters (4 sources) Secondary hyperparathyroidism of renal origin; Translations: [SEC HYPERPARATHYROIDISM RENAL ORIGN] Onset: 2 Resolved: 2 Chronic Other inflammatory condition of skin (6 sources) Pruritus of skin; Translations: [Pruritus, unspecified] 08-04-2019 Episodic Other non-traumatic joint disorders (2 sources) Polyarthropathy; Translations: [Polyarthritis, unspecified] Onset: 3 06-10-2023 Chronic Other upper respiratory infections (2 sources) Acute pansinusitis; Translations: [Acute pansinusitis, unspecified] 07-27-2024 Episodic Ovarian cyst (4 sources) Unspecified ovarian cyst, left side; Translations: [UNSPECIFIED OVARIAN CYST LEFT SIDE] Onset: 2 Episodic Residual codes; unclassified (2 sources) Obstructive sleep apnea syndrome; Translations: [Obstructive sleep apnea (adult) (pediatric)] Onset: 3 03-04-2023 Chronic Septicemia (except in labor) (7 sources) Sepsis; [...] Classification Problem Date Documented Da te Episodic/Chronic Deficiency and other anemia (12 sources) Iron deficiency anemia; Translations: [Iron deficiency anemia, unspecified] Onset: 03-04-2023 03-15-2024 Episodic Diabetes mellitus without complication (4 sources) Impaired fasting glucose; Translations: [Impaired fasting glycemia] Onset: 03-04-2023 Resolved: 03-13-2023 Episodic Fluid and electrolyte disorders (3 sources) Acidosis; Translations: [ACIDOSIS] Onset: 12-06-2021 Resolved: 05-02-2022 Episodic Other aftercare (2 sources) Transplant follow-up; Translations: [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) drug therapy] Onset: 10-23-2022 06-10-2023 Episodic Other connective tissue disease (2 sources) Fibromyalgia; Translations: [Fibromyalgia] Onset: 03-04-2023 03-04-2023 Episodic Other non-traumatic joint disorders (1 source) Pain in unspecified joint; Translations: [Pain in unspecified joint] Onset: 11-06-2023 Episodic Other nutritional; endocrine; and metabolic disorders (8 sources) Hyperuricemia; Translations: [Hyperuricemia without signs of inflammatory arthritis and tophaceous disease] Onset: 03-04-2023 Resolved: 03-13-2023 01-19-2019 Episodic Other screening for suspected conditions (not mental disorders or infectious disease) (1 source) Encounter for screening for malignant neoplasm of colon Onset: 02-26-2022 Resolved: 02-26-2022 Episodic Otitis media and related conditions (1 source) Otitis media, unspecified, bilateral Onset: 04-30-2022 Resolved: 04-30-2022 Episodic Results Test Name Value Interpretation Reference Range Facility Follow-Upon 07-07-2024 Follow-Up [id number] Antonio Puri i 1975 F Date Provider Department Center 07/07/2024 [facility] Family History Problem Relation Age of Onset Fibromyalgia Mother Heart disease Father Hypertension Sister Polycystic kidney disease Sister Hypertension Brother Polycystic kidney disease Brother Family Status - Relation Status Age at Mother Father Sister Brother Level of Service:39441 SD OFFICE/OUTPATIENT ESTABLISHED LOW MDM 20 MIN Reason for Visit and Comments: UTI [[id number]] - CT results Normal [facility] URINE CULTURE, ROUTINEon Bacteria identified Cx Nom (U) ESCHERICHIA COLI Abnormal [facility] Comment on above: Result Comment: >100 ,000 CFU/Ml Escherichia coli Susceptibility to Follow Performed By: #### L [id number] #### [facility] [address] [place] [address] CT ABDOMEN PELVIS WO IV CONT [facility] 07-02-2024 CT ABDOMEN PELVIS WO IV CONTRAST STUDY: ABDOMEN AND PELVIS CT WITHOUT CONTRAST CLINICAL HISTORY: Recurrent urinary tract infection, flank pain. COMPARISON: Patent 2021. TECHNIQUE: CT abdomen and pelvis was performed without intravenous contrast. Coronal and sagittal reformatted images were obtained and reviewed. Automated exposure control was utilized. FINDINGS: Assessment is suboptimal in the absence of intravenous contrast. Of note, vasculature and assessment for metastatic disease and infectious processes [if applicable] are particularly compromised. No acute findings lower thorax. Hepatic steatosis. Normal bladder, adrenal glands, pancreas. Nonenlarged spleen. Autosomal dominant polycystic kidney with innumerable circumscribed lesions within the [place] kidneys, many which are simple cysts, others which are hemorrhagic cysts, others technically indeterminant. Right lower quadrant transplant kidney with minimal perihilar fat stranding. No collecting system dilatation. Hysterectomy. Circumscribed cystic structure left ovary measures 3.8 cm. No dilatation or wall thickening of the bowel. Normal appendix. No free fluid or fluid collections. No aggressive osseous lesions posterior facet arthropathy lower lumbar spine, notably at right L5-S1. IMPRESSION: 1. Unremarkable right lower quadrant transplant kidney, minimal transplant perihilar perinephric fat stranding. No collecting system dilatation. 2. Circumscribed left ovarian lesion, 3.8 cm. Finding may relate to platelike changes or be serous cyst adenoma. Observation is increase in size since 02/12/2022. Consider pelvic ultrasound. 3. Autosomal dominant polycystic kidney disease with numerous circumscribed renal lesions, some of which are technically indeterminant. No overtly worrisome renal lesion. All CT scans at this facility use dose modulation, iterative reconstruction, and/or weight based dosing when appropriate to reduce radiation dose to as low as reasonably achievable. Electronically signed: Deep Epperson MD. Not Vldtd Invalid Interpretation Code [facility] Orders Onlyon 06-15-2024 Orders Only [id number] Antonio Puri i 1975 F Date Provider Department Center 06/15/2024 [id number] PHAN None Family History Problem Relation Age of Onset Fibromyalgia Mother Heart disease Father Hypertension Sister Polycystic kidney disease Sister Hypertension Brother Polycystic kidney disease Brother Family Status - Relation Status Age at Mother Father Sister Brother Normal [facility] Consulton 05-19-2024 Consult [id number] Antonio Puri i 1975 F Date Provider Department Center 05/19/2024 3844-SREE BLANCHARD [facility] Family History Problem Relation Age of Onset Fibromyalgia Mother Heart disease Father Hypertension Sister Polycystic kidney disease Sister Hypertension Brother Polycystic kidney disease Brother Family Status - Relation Status Age at Mother Father Sister Brother Level of Service:49190 SD OFFICE/OUTPATIENT ESTABLISHED MOD MDM 30 MIN Reason for Visit and Comments: UTI [[id number]] - Recurrent chronic ecoli , has fibromyalgia and when that flairs up the UTI happens Normal [facility] CREATININE, URINE, RANDOMon 04-27-2024 Creatinine (U) [Mass/Vol] 142.0 mg/dL Normal 26-299 [facility] Comment on above: Performed By: #### L [id number] #### [facility] ([facility]) [address] [place] [address] Follow-Upon 04-27-2024 Follow-Up [id number] Antonio Puri i 1975 F Date Provider Department Center 04/27/2024 124-MUNIRA PHAN TXP None Family History Problem Relation Age of Onset Fibromyalgia Mother Heart disease Father Hypertension Sister Polycystic kidney disease Sister Hypertension Brother Polycystic kidney disease Brother Family Status - Relation Status Age at Mother Father Sister Brother Level of Service:13465 SD OFFICE/OUTPATIENT ESTABLISHED MOD MDM 30 MIN Reason [...] mg because they are smaller pills. Normal [facility] PROTEIN, URINE, RANDOMon Protein (U) [Mass/Vol] 51.7 mg/dL [facility] Comment on above: Result Comment: Ther e are no established reference values for random urine specimens. Performed By: #### L [id number] #### [facility] ([facility]) [address] [place] [address] URINALYSISon 04-27-2024 BILIRUBIN, TOTAL PRESENCE IN URINE Negative Normal Negative [facility] Comment on above: Performed By: #### L [id number] #### [facility] ([facility]) [address] [place] [address] Clarity (U) Slightly Cloudy Abnormal [facility] Comment on above: Performed By: #### L [id number] #### [facility] ([facility]) [address] [place] [address] Color (U) Yellow Normal Yellow [facility] Comment on above: Performed By: #### L [id number] #### [facility] ([facility]) [address] [place] [address] Glucose (U) [Mass/Vol] Negative Normal [facility] Comment on above: Performed By: #### L [id number] #### [facility] ([facility]) [address] [place] [address] HEMOGLOBIN PRESENCE IN URINE Small Abnormal Negative [facility] Comment on above: Performed By: #### L [id number] #### [facility] ([facility]) [address] [place] [address] Ketones Ql (U) Negative Normal Negative [facility] Comment on above: Performed By: #### L [id number] #### [facility] ([facility]) [address] [place] [address] LEUKOCYTE ESTERASE PRESENCE IN URINE BY TEST STRIP Large Abnormal Negative [facility] Comment on above: Performed By: #### L [id number] #### [facility] ([facility]) [address] [place] [address] NITRITE PRESENCE IN URINE Positive Abnormal Negative [facility] Comment on above: Performed By: #### L [id number] #### [facility] ([facility]) [address] [place] [address] pH (U) 6.0 [pH] Normal 5.0-8.0 [facility] Comment on above: Performed By: #### L [id number] #### [facility] ([facility]) [address] [place] [address] Protein (U) [Mass/Vol] 100 mg/dL Abnormal Negative [facility] Comment on above: Performed By: #### L [id number] #### [facility] ([facility]) [address] [place] [address] Specific gravity (U) [Rel density] 1.012 Low 1.015-1.020 [facility] Comment on above: Performed By: #### L [id number] #### [facility] [address] [place] [address] URINALYSIS MICROSCOPICon CASTS IN URINE Normal [facility] Comment on above: Performed By: #### L [id number] #### [facility] [address] [place] [address] CRYSTALS IN URINE Normal [facility] Comment on above: Performed By: #### L [id number] #### [facility] (BEAKER) [address] [place] [address] MUCUS (#/HPF) IN URINE SEDIMENT Occasional Normal None Seen, Occasional, Few [facility] Comment on above: Performed By: #### L [id number] #### [facility] ([facility] [address] [place] [address] RBC (#/HPF) IN URINE SEDIMENT 11-20 Abnormal None Seen [facility] Comment on above: Performed By: #### L [id number] #### [facility] (BE[facility]ER) [address] [place] [address] SQUAMOUS EPITHELIAL CELLS (#/HPF) IN URINE SEDIMENT Moderate Abnormal None Seen, Occasional [facility] Comment on above: Performed By: #### L [id number] #### [facility] (BEAKER) [address] [place] [address] WBC (LEUKOCYTE) (#/HPF) IN URINE SEDIMENT >100 Abnormal None Seen [facility] Comment on above: Performed By: #### L [id number] #### [facility] (BEAKER) [address] [place] [address] URINE CULTURE, ROUTINEon Bacteria identified Cx Nom (U) ESCHERICHIA COLI Abnormal [facility] Comment on above: Result Comment: >100 ,000 CFU/Ml Escherichia coli Susceptibility to Follow Performed By: #### L [id number] #### [facility] (BEAKER) [address] [place] [address] BILIRUBIN, DIRECTon 04-23-20 24 Magnesium [Mass/Vol] 0.0 mg/dL Normal 0-0.2 [facility] Comment on above: Performed By: #### L [id number] #### [facility] [address] [place] [address] CBC WITH AUTO DIFFERENTIALon 04-23-2024 Basophils (Bld) [#/Vol] 0.05 10*3/uL Normal 0.00-0.20 [facility] Comment on above: Performed By: #### L [id number] #### [facility] ([facility]) [address] [place] [address] Basophils/100 WBC (Bld) 0.6 % Normal 0.0-1.0 [facility] Comment on above: Performed By: #### L [id number] #### [facility] ([facility]) [address] [place] [address] Eosinophils (Bld) [#/Vol] 0.17 10*3/uL Normal 0.00-0.50 [facility] Comment on above: Performed By: #### L [id number] #### [facility] ([facility]) [address] [place] [address] Eosinophils/100 WBC (Bld) 1.9 % Normal 0.0-6.0 [facility] Comment on above: Performed By: #### L [id number] #### [facility] ([facility]) [address] [place] [address] Erythrocyte distribution width (RBC) [Ratio] 15.7 % High 11.5-15.0 [facility] Comment on above: Performed By: #### L [id number] #### [facility] ([facility]) [address] [place] [address] ERYTHROCYTE MEAN CORPUSCULAR HEMOGLOBIN CONCENTRATION (G/DL) BY AUTOMATED 32.7 g/dL Normal 32.0-35.0 [facility] Comment on above: Performed By: #### L [id number] #### [facility] [address] [place] [address] Hematocrit (Bld) [Volume fraction] 39.2 % Normal 36.0-48.0 [facility] Comment on above: Performed By: #### L [id number] #### [facility] (BEAKER) [address] [place] [address] Hemoglobin (Bld) [Mass/Vol] 12.8 g/dL Normal 12.0-15.0 [facility] Comment on above: Performed By: #### L [id number] #### [facility] ([facility]) [address] [place] [address] Immature granulocytes (Bld) [#/Vol] 0.06 10*3/uL Normal 0.00-0.20 [facility] Comment on above: Performed By: #### L [id number] #### [facility] ([facility]) [address] [place] [address] Immature granulocytes/100 WBC (Bld) 0.7 % Normal 0.0-1.0 [facility] Comment on above: Performed By: #### L [id number] #### [facility] [address] [place] [address] Lymphocytes (Bld) [#/Vol] 1.27 10*3/uL Normal 1.20-4.00 [facility] Comment on above: Performed By: #### L [id number] #### [facility] [address] [place] [address] Lymphocytes/100 WBC (Bld) 14.5 % Low 20.0-45.0 [facility] Comment on above: Performed By: #### L [id number] #### [facility] (BEAKER) [address] [place] [address] MCH (RBC) [Entitic mass] 27.7 pg Normal 27.0-33.0 [facility] Comment on above: Performed By: #### L [id number] #### [facility] (BEAKER) [address] [address] MCV (RBC) [Entitic vol] 84.8 fL Normal 82.0-98.0 [facility] Comment on above: Performed By: #### L [id number] #### [facility] ([facility]) [address] [place] [address] Monocytes (Bld) [#/Vol] 0.40 10*3/uL Normal 0.10-1.00 [facility] Comment on above: Performed By: #### L [id number] #### [facility] ([facility]) [address] [place] [address] Monocytes/100 WBC (Bld) 4.6 % Low 5.0-12.0 [facility] Comment on above: Performed By: #### L [id number] #### [facility] ([facility]) [address] [place] [address] Neutrophils (Bld) [#/Vol] 6.82 10*3/uL Normal 1.60-7.60 [facility] Comment on above: Performed By: #### L [id number] #### [facility] ([facility]) [address] [place] [address] Neutrophils/100 WBC (Bld) 77.7 % High 40.0-72.0 [facility] Comment on above: Performed By: #### L [id number] #### [facility] ([facility]) [address] [place] [address] NRBC (PER 100 WBCS) BY AUTOMATED COUNT 0.0 % Normal 0 [facility] Comment on above: Performed By: #### L [id number] #### [facility] ([facility]) [address] [place] [address] PLATELETS (10*3/UL) IN BLOOD AUTOMATED COUNT 337 10*3/uL Normal 150-400 [facility] Comment on above: Performed By: #### L [id number] #### [facility] ([facility]) [address] [place] [address] RBC (Bld) [#/Vol] 4.62 10*6/uL Normal 3.80-5.00 [facility] Comment on above: Performed By: #### L [id number] #### [facility] [address] [place] [address] WBC (Bld) [#/Vol] 8.77 10*3/uL Normal 4.00-10.60 [facility] Comment on above: Performed By: #### L [id number] #### [facility] [address] [place] [address] COMPREHENSIVE METABOLIC PANE Jonathan 04-23-2024 Albumin [Mass/Vol] 4.4 g/dL Normal 3.5-5.7 [facility] Comment on above: Performed By: #### L [id number] #### [facility] ([facility]) [address] [place] [address] ALP [Catalytic activity/Vol] 74 U/L Normal 34-104 [facility] Comment on above: Performed By: #### L [id number] #### [facility] ([facility]) [address] [place] [address] ALT [Catalytic activity/Vol] 9 U/L Normal 7-52 [facility] Comment on above: Performed By: #### L [id number] #### [facility] ([facility]) [address] [place] [address] Anion gap [Moles/Vol] 13 mmol/L Normal 7-20 [facility] Comment on above: Performed By: #### L [id number] #### [facility] [address] [place] [address] AST [Catalytic activity/Vol] 14 U/L Normal 13-39 [facility] Comment on above: Performed By: #### L [id number] #### [facility] ([facility] [address] [place] [address] Bilirubin [Mass/Vol] 0.4 mg/dL Normal 0.3-1.0 [facility] Comment on above: Performed By: #### L [id number] #### [facility] ([facility] [address] [place] [address] Calcium [Mass/Vol] 9.4 mg/dL Normal 8.6-10.3 [facility] Comment on above: Performed By: #### L [id number] #### [facility] ([facility]) [address] [place] [address] Chloride [Moles/Vol] 104 mmol/L Normal 98-107 [facility] Comment on above: Performed By: #### L [id number] #### [facility] ([facility]) [address] [place] [address] CO2 [Moles/Vol] 25 mmol/L Normal 21-31 [facility] Comment on above: Performed By: #### L [id number] #### [facility] ([facility]) [address] [place] [address] Creatinine [Mass/Vol] 1.09 mg/dL Normal 0.60-1.20 [facility] Comment on above: Performed By: #### L [id number] #### [facility] ([facility]) [address] [place] [address] GLOMERULAR FILTRATION RATE ML/MIN/1.73 SQ M.PREDICTED 62.7 mL/min/1.73m*2 Normal >60.0 [facility] Comment on above: Result Comment: The [facility]???s estimated glomerular filtration rate (eGFR) [...] individuals. Performed By: #### L [id number] #### [facility] ([facility]) [address] [place] [address] Glucose [Mass/Vol] 108 mg/dL High 70-100 [facility] Comment on above: Performed By: #### L [id number] #### [facility] (BEAKER) [address] [place] [address] Potassium [Moles/Vol] 3.5 mmol/L Normal 3.5-5.1 [facility] Comment on above: Performed By: #### L [id number] #### [facility] [address] [place] [address] Protein [Mass/Vol] 7.6 g/dL Normal 6.0-8.3 [facility] Comment on above: Performed By: #### L [id number] #### [facility] [address] [place] [address] Sodium [Moles/Vol] 138 mmol/L Normal 136-145 [facility] Comment on above: Performed By: #### L [id number] #### [facility] [address] [place] [address] Urea nitrogen [Mass/Vol] 13 mg/dL Normal 7-25 [facility] Comment on above: Performed By: #### L [id number] #### [facility] ([facility]) [address] [place] [address] UREA NITROGEN/CREATININE (MASS RATIO) IN SER/PLAS 11.9 Normal [facility] Comment on above: Performed By: #### L [id number] #### [facility] (BEAKER) [address] [place] [address] HEMOGLOBIN A1Con 04-23-2024 Glucose [Mass/Vol] 105 mg/dL Normal [facility] Comment on above: Performed By: #### L [id number] #### [facility] (BEAKER) [address] [place] [address] HbA1c (Bld) [Mass fraction] 5.3 % Normal 4.0-6.0 [facility] Comment on above: Performed By: #### L [id number] #### [facility] (BEAKER) [address] [place] [address] LIPID PANELon 04-23-2024 CHOL/HDL 4.0 mg/dL Normal [facility] Comment on above: Performed By: #### L [id number] #### [facility] [address] [place] [address] Cholesterol [Mass/Vol] 182 mg/dL Normal 120-200 [facility] Comment on above: Performed By: #### L [id number] #### [facility] ([facility] [address] [place] [address] Magnesium [Mass/Vol] 166 mg/dL High 40-149 [facility] Comment on above: Result Comment: TRIG LYCERIDE REFERENCE RANGE: 20 YEARS AND OLDER CARDIOVASCULAR RISK LESS THAN 150 mg/dL LOW RISK 150 TO 199 mg/dL BORDERLINE RISK 200 mg/dL AND GREATER HIGH RISK Performed By: #### L [id number] #### [facility] [address] [place] [address] Magnesium [Mass/Vol] 103 mg/dL Normal 0-160 [facility] Comment on above: Performed By: #### L [id number] #### [facility] (BEAKER) [address] [place] [address] Magnesium [Mass/Vol] 46 mg/dL Normal 23-92 [facility] Comment on above: Performed By: #### L [id number] #### [facility] (BEAKER) [address] [place] [address] NON HDL CHOL. (LDL+VLDL) 136 Normal [facility] Comment on above: Performed By: #### L [id number] #### [facility] (BEAKER) [address] [place] [address] TOTAL VLDL-C 33 mg/dL Normal 0-40 [facility] Comment on above: Performed By: #### L [id number] #### [facility] (BEAKER) [address] [place] [address] Labon 04-23-2024 Lab [id number] Antonio Puri i 1975 F Date Provider Department Center 04/23/2024 2245-[facility] Medical C Family History Problem Relation Age of Onset Fibromyalgia Mother Heart disease Father Hypertension Sister Polycystic kidney disease Sister Hypertension Brother Polycystic kidney disease Brother Family Status - Relation Status Age at Mother Father Sister Brother Normal [facility] MAGNESIUMon 04-23-2024 Magnesium [Mass/Vol] 1.8 mg/dL Low 1.9-2.7 [facility] Comment on above: Performed By: #### L [id number] #### [facility] ([facility]) [address] [place] [address] PHOSPHORUSon 04-23-2024 Magnesium [Mass/Vol] 2.8 mg/dL Normal 2.5-5.0 [facility] Comment on above: Performed By: #### L [id number] #### [facility] ([facility]) [address] [place] [address] TACROLIMUS LEVELon Tacrolimus (Bld) [Mass/Vol] 10.5 ng/mL Normal 5.0-20.0 [facility] Comment on above: Result Comment: The [facility] Tacrolimus assay is a delayed one-step immunoassay for the quantitative determination of tacrolimus in human whole blood using the chemiluminescent microparticle immunoassay (CMIA) technology with flexible assay protocols, referred to as Chemiflex. Performed By: #### L [id number] #### [facility] [address] [place] [address] URIC ACIDon 04-23-2024 Magnesium [Mass/Vol] 4.0 mg/dL Normal 2.3-6.6 [facility] Comment on above: Performed By: #### L [id number] #### [facility] [address] [place] [address] URINALYSISon 04-23-2024 BILIRUBIN, TOTAL PRESENCE IN URINE Negative Normal Negative [facility] Comment on above: Performed By: #### L [id number] #### [facility] [address] [place] [address] Clarity (U) Cloudy Abnormal Clear [facility] Comment on above: Performed By: #### L [id number] #### [facility] ([facility]) [address] [place] [address] Color (U) Yellow Normal Yellow [facility] Comment on above: Performed By: #### L [id number] #### [facility] ([facility]) [address] [place] [address] Glucose (U) [Mass/Vol] Negative Normal Negative Un [facility] Comment on above: Performed By: #### L [id number] #### [facility] ([facility]) [address] [place] [address] HEMOGLOBIN PRESENCE IN URINE Negative Normal Negative [facility] Comment on above: Performed By: #### L [id number] #### [facility] ([facility]) [address] [place] [address] Ketones Ql (U) Negative Normal Negative [facility] Comment on above: Performed By: #### L [id number] #### [facility] ([facility]) [address] [place] [address] LEUKOCYTE ESTERASE PRESENCE IN URINE BY TEST STRIP Negative Normal Negative [facility] Comment on above: Performed By: #### L [id number] #### [facility] ([facility]) [address] [place] [address] NITRITE PRESENCE IN URINE Negative Normal Negative [facility] Comment on above: Performed By: #### L [id number] #### [facility] ([facility]) [address] [place] [address] pH (U) 7.0 [pH] Normal 5.0-8.0 [facility] Comment on above: Performed By: #### L [id number] #### [facility] ([facility]) [address] [place] [address] Protein (U) [Mass/Vol] Negative Normal Negative [facility] Comment on above: Performed By: #### L [id number] #### [facility] ([facility]) [address] [place] [address] Specific gravity (U) [Rel density] 1.011 Low 1.015-1.020 [facility] Comment on above: Performed By: #### L [id number] #### [facility] [address] [place] [address] URINALYSIS MICROSCOPICon AMORPHOUS CRYSTALS (#/HPF) IN URINE Few Abnormal None Seen [facility] Comment on above: Performed By: #### L [id number] #### [facility] ([facility]) [address] [place] [address] CASTS IN URINE Normal [facility] Comment on above: Performed By: #### L [id number] #### [facility] ([facility]) [address] [place] [address] CRYSTALS IN URINE Normal [facility] Comment on above: Performed By: #### L [id number] #### [facility] ([facility]) [address] [place] [address] MUCUS (#/HPF) IN URINE SEDIMENT Occasional Normal None Seen, Occasional, Few [facility] Comment on above: Performed By: #### L [id number] #### [facility] [address] [place] [address] RBC (#/HPF) IN URINE SEDIMENT 3-5 Abnormal None Seen [facility] Comment on above: Performed By: #### L [id number] #### [facility] ([facility]) [address] [place] [address] SQUAMOUS EPITHELIAL CELLS (#/HPF) IN URINE SEDIMENT Many Abnormal None Seen, Occasional [facility] Comment on above: Performed By: #### L [id number] #### [facility] (BEAKER) [address] [place] [address] WBC (LEUKOCYTE) (#/HPF) IN URINE SEDIMENT 3-5 Abnormal None Seen [facility] Comment on above: Performed By: #### L [id number] #### [facility] (BEAKER) [address] [place] [address] URINE CULTURE, ROUTINEon Bacteria identified Cx Nom (U) <10,000 CFU/ML No Significant Growth Normal [facility] Comment on above: Performed By: #### L [id number] #### [facility] [address] [place] [address] US RENAL COMPLETEon 04-14-20 24 US RENAL COMPLETE EXAM: Renal Ultrasou nd with Doppler: REASON FOR EXAM: Polycystic kidneys. COMPARISON: None. TECHNIQUE: Real-time ultrasonographic evaluation of the kidneys is performed with color flow Doppler. FINDINGS: There is a transplanted right kidney. Right kidney: Numerous [place] right renal cysts. No hydronephrosis. Left kidney: Numerous [place]-cree left renal cysts. No hydronephrosis. Uniform and [...] report is generated using voice recognition reporting ([employer]). On occasion paymiocribe erroneously drops words from the report or replaces the spoken word with similar sounding words. Please call with any questions/concerns regarding this report.* Dictated and transcribed 04/14/2024/heriberto This report has been electronically signed and approved by the interpreting radiologist. Electronically Signed René Raymond M.D. 2024-04-14 16:31:56 Normal Not Available Urine Cultureon 03-15-2024 Bacteria identified Cx Nom (U) ORGANISM: Escherichia coli (MDRO) (O:ESCCOLMDRO) [place] Count >100,000 Aerobic CODI Charge (NMIC56) SUSCEPTIBILITY [...] RESISTANT TO ALL B-LACTAM DRUGS. PERFORMED BY: [place] [address] PATHOLOGIST STOCK LIFTER ANAHY MCKEE M.D. Normal [facility] Comment on above: Performed By: #### C UU #### [address] Documentationon 03-03-2024 Documentation [id number] Antonio Puri i 1975 F Date Provider Department Center 03/03/2024 750-JOSE RAFAEL GAVIRIA None Family History Problem Relation Age of Onset Fibromyalgia Mother Heart disease Father Hypertension Sister Polycystic kidney disease Sister Hypertension Brother Polycystic kidney disease Brother Family Status - Relation Status Age at Mother Father Sister Brother Normal [facility] Follow-Upon 12-23-2023 Follow-Up [id number] Antonio Puri i 1975 F Date Provider Department Center 12/23/2023 124-MUNIRA PHAN TXP None Family History Problem Relation Age of Onset Fibromyalgia Mother Heart disease Father Hypertension Sister Polycystic kidney disease Sister Hypertension Brother Polycystic kidney disease Brother Family Status - Relation Status Age at Mother Father Sister Brother Level of Service:12291 SD OFFICE/OUTPATIENT ESTABLISHED MOD MDM 30 MIN Reason for Visit and Comments: Kidney Follow-up [] - Pt has questions about her lab work. Normal [facility] PAPITO Antinuclear Antibodieson 11-06-2023 Antinuclear Abs, IFA Negative Normal . [facility] Comment on above: Result Comment: Nega tive <1:80 Borderline 1:80 Positive >1:80 ICAP nomenclature: AC-0 For more information about Hep-2 cell patterns use ANApatterns.org, the official website for the International Consensus on Antinuclear Antibody (PAPITO) Patterns (ICAP). Performed at: [facility] [place] [id number] Lab Pack Chemist: Gabriel Whitman PhD, Phone: [phone] PERFORMED BY: [place] [address] PATHOLOGIST STOCK LIFTER ANAHY MCKEE M.D. Performed By: #### C K, CMP, CRP, CBC, ESR #### [facility] [address] [place] [address] #### PAPITO #### [facility] , Alanine aminotransferase [En zymatic activity/volume] in Serum or PlasmaOrdered By: Perri Ceja on 11-06-2023 ALT [Catalytic activity/Vol] 20 U/L Normal 7-52 [facility] Comment on above: Performed By: #### C K, CMP, CRP, CBC, ESR #### [facility] [address] [place] [address] [place] #### PAPITO #### [facility] , Albumin [Mass/volume] in Ser um or Plasma by Bromocresol green (BCG) dye binding methoOrdered By: Perri Ceja on 11-06-2023 Albumin BCG dye [Mass/Vol] 4.7 g/dL 3.5-5.7 [facility] Alkaline phosphatase [Enzyma tic activity/volume] in Serum or PlasmaOrdered By: Perri Ceja on 11-06-2023 ALP [Catalytic activity/Vol] 96 U/L Normal 34-104 [facility] Comment on above: Performed By: #### C K, CMP, CRP, CBC, ESR #### [address] #### PAPITO #### [facility] , Aspartate aminotransferase [ Enzymatic activity/volume] in Serum or PlasmaOrdered By: Perri Ceja on 11-06-2023 AST [Catalytic activity/Vol] 16 U/L Normal 13-39 [facility] Comment on above: Performed By: #### C K, CMP, CRP, CBC, ESR #### [address] #### PAPITO #### [facility] , Automated basophil %Ordered By: Perri Ceja on 11-06-2023 Basophils/100 WBC (Bld) 0.7 % Normal . [facility] Comment on above: Performed By: #### C K, CMP, CRP, CBC, ESR #### [place] [address] [place] #### PAPITO #### [facility] , Automated basophil countOrde red By: Perri Ceja on 11-06-2023 Basophils (Bld) [#/Vol] 0.1 10*3/uL Normal 0.0-0.2 [facility] Comment on above: Performed By: #### C K, CMP, CRP, CBC, ESR #### [facility] [address] [place] [address] [place] #### PAPITO #### [facility] , Automated blood monocyte cou ntOrdered By: Perri Ceja on 11-06-2023 Monocytes (Bld) [#/Vol] 0.6 10*3/uL Normal 0.0-0.8 [facility] Comment on above: Performed By: #### C K, CMP, CRP, CBC, ESR #### [place] [address] [place] #### PAPITO #### [facility] , Automated eosinophil %Ordere d By: Perri Ceja on 11-06-2023 Eosinophils/100 WBC (Bld) 3.0 % Normal . [facility] Comment on above: Performed By: #### C K, CMP, CRP, CBC, ESR #### [facility] [address] [place] [address] [place] #### PAPITO #### [facility] , Automated eosinophil countOr dered By: Perri Ceja on 11-06-2023 Eosinophils (Bld) [#/Vol] 0.3 10*3/uL Normal 0.0-0.45 [facility] Comment on above: Performed By: #### C K, CMP, CRP, CBC, ESR #### [place] [address] [place] #### PAPITO #### [facility] , Automated monocyte %Ordered By: Perri Ceja on 11-06-2023 Monocytes/100 WBC (Bld) 6.6 % Normal . [facility] Comment on above: Performed By: #### C K, CMP, CRP, CBC, ESR #### [place] [address] [place] #### PAPITO #### [facility] , Automated neutrophil %Ordere d By: Perri Ceja on 11-06-2023 Neutrophils/100 WBC (Bld) 72.1 % Normal . [facility] Comment on above: Performed By: #### C K, CMP, CRP, CBC, ESR #### [facility] [address] [place] [address] [place] #### PAPITO #### [facility] , Bilirubin.total [Mass/volume ] in Serum or PlasmaOrdered By: Perri Ceja on 11-06-2023 Bilirubin [Mass/Vol] 0.4 mg/dL Normal 0.3-1.0 [facility] Comment on above: Performed By: #### C K, CMP, CRP, CBC, ESR #### [facility] [address] [place] [address] #### PAPITO #### [facility] , C reactive protein [Mass/vol ume] in Serum or PlasmaOrdered By: Perri Ceja on 11-06-2023 CRP [Mass/Vol] 2.0 mg/dL 0.0-0.5 [facility] C-Reactive Proteinon 024 C-Reactive Protein 2.0 mg/dL High 0.0-0.5 [facility] Comment on above: Result Comment: PERF ORMED BY: [place] [address] PATHOLOGIST STOCK LIFTER ANAHY MCKEE M.D. Performed By: #### C K, CMP, CRP, CBC, ESR #### [facility] [address] [place] [address] #### PAPITO #### [facility] , Calcium [Mass/volume] in Ser um or PlasmaOrdered By: Perri Ceja on 11-06-2023 Calcium [Mass/Vol] 10.3 mg/dL Normal 8.6-10.3 [facility] Comment on above: Performed By: #### C K, CMP, CRP, CBC, ESR #### [facility] [address] [place] [address] [place] #### PAPITO #### [facility] , Carbon dioxide, total [Moles /volume] in Serum or PlasmaOrdered By: Perri Ceja on 11-06-2023 CO2 [Moles/Vol] 26.1 mmol/L Normal 21.0-31.0 [facility] Comment on above: Performed By: #### C K, CMP, CRP, CBC, ESR #### [facility] [address] [place] [address] [place] #### PAPITO #### [facility] , Chloride [Moles/volume] in S aislinn or PlasmaOrdered By: Perri Ceja on 11-06-2023 Chloride [Moles/Vol] 104 mmol/L Normal 98-107 [facility] Comment on above: Performed By: #### C K, CMP, CRP, CBC, ESR #### [facility] [address] [place] [address] [place] #### PAPITO #### [facility] , Complete Blood Count Auto Di ffon 11-06-2023 Mean Corpuscular HGB Conc 33.6 g/dL Normal 32.0-35.0 [facility] Comment on above: Performed By: #### C K, CMP, CRP, CBC, ESR #### [place] [address] [place] #### PAPITO #### [facility] , NRBC% 0.1 /100{WBC} Normal 0-0.5 [facility] Comment on above: Performed By: #### C K, CMP, CRP, CBC, ESR #### [place] [address] [place] #### PAPITO #### [facility] , Comprehensive Metabolic Pane jonathan 11-06-2023 Albumin [Mass/Vol] 4.7 g/dL Normal 3.5-5.7 [facility] Comment on above: Performed By: #### C K, CMP, CRP, CBC, ESR #### [place] [address] [place] #### PAPITO #### [facility] , GFR/1.73 sq M.predicted MDRD (S/P/Bld) [Vol rate/Area] 57.919 mL/min/{1.73_m2} Normal [facility] Comment on above: Performed By: #### C K, CMP, CRP, CBC, ESR #### [place] [address] [place] #### PAPITO #### [facility] , Creatine kinase [Enzymatic a ctivity/volume] in Serum or PlasmaOrdered By: Perri Ceja on 11-06-2023 CK [Catalytic activity/Vol] 30 U/L Normal 30-223 [facility] Comment on above: Result Comment: PERF ORMED BY: [place] [address] PATHOLOGIST STOCK LIFTER ANAHY MCKEE M.D. Performed By: #### C K, CMP, CRP, CBC, ESR #### [address] #### PAPITO #### [facility] , Creatinine [Mass/volume] in Serum or PlasmaOrdered By: Perri Ceja on 11-06-2023 Creatinine [Mass/Vol] 1.17 mg/dL Normal 0.60-1.20 [facility] Comment on above: Performed By: #### C K, CMP, CRP, CBC, ESR #### [address] #### PAPITO #### [facility] , Erythrocyte Sedimentation Ra mathieu 11-06-2023 ESR (Bld) [Velocity] 49 mm/h High 0-19 [facility] Comment on above: Result Comment: PERF ORMED BY: [place] [address] PATHOLOGIST STOCK LIFTER ANAHY MCKEE M.D. Performed By: #### C K, CMP, CRP, CBC, ESR #### [address] #### PAPITO #### [facility] , Erythrocyte distribution wid th [Ratio] by Automated countOrdered By: Perri Ceja on 11-06-2023 Erythrocyte distribution width (RBC) [Ratio] 15.3 % Normal 11.9-15.3 [facility] Comment on above: Performed By: #### C K, CMP, CRP, CBC, ESR #### [place] [address] [place] #### PAPITO #### [facility] , Erythrocyte sedimentation ra te by Photometric methodOrdered By: Perri Ceja on 11-06-2023 ESR Photometric method (Bld) [Velocity] 49 mm/hr 0-19 [facility] Erythrocytes [#/volume] in B lood by Automated countOrdered By: Perri Ceja on 11-06-2023 RBC (Bld) [#/Vol] 4.60 10*6/uL Normal 3.60-5.00 [facility] Comment on above: Performed By: #### C K, CMP, CRP, CBC, ESR #### [place] [address] [place] #### PAPITO #### [facility] , Glucose [Mass/volume] in Ser um or PlasmaOrdered By: Perri Ceja on 11-06-2023 Glucose [Mass/Vol] 91 mg/dL Normal 70-100 [facility] Comment on above: ADA recommended refe rence rangeRandom Glucose Reference Range is dependent on time and content of last meal. Glucose of more than 200 mg/dL in a nonstressed, ambulatory subject supports the diagnosis of Diabetes Mellitus. Result Comment: [facility] om Glucose Reference Range is dependent on time and content of last meal. Glucose of more than 200 mg/dL in a nonstressed, ambulatory subject supports the diagnosis of Diabetes Mellitus. ADA recommended reference range Performed By: #### C K, CMP, CRP, CBC, ESR #### [facility] [address] [place] [address] [place] #### PAPITO #### [facility] , Hematocrit [Volume Fraction] of Blood by Automated countOrdered By: Perri Ceja on 11-06-2023 Hematocrit (Bld) [Volume fraction] 38.9 % Normal 34.0-46.4 [facility] Comment on above: Performed By: #### C K, CMP, CRP, CBC, ESR #### [facility] [address] [place] [address] [place] #### PAPITO #### [facility] , Hemoglobin [Mass/volume] in BloodOrdered By: Perri Ceja on 11-06-2023 Hemoglobin (Bld) [Mass/Vol] 13.1 g/dL Normal 11.8-15.4 [facility] Comment on above: Performed By: #### C K, CMP, CRP, CBC, ESR #### [place] [address] [place] #### PAPITO #### [facility] , Leukocytes [#/volume] correc noah for nucleated erythrocytes in Blood by Automated counOrdered By: Perri Ceja on 11-06-2023 WBC corrected for nucl RBC Auto (Bld) [#/Vol] 8.8 10*3/uL 3.8-11.6 [facility] Leukocytes [#/volume] in Blo od by Automated countOrdered By: Perri Ceja on 11-06-2023 WBC (Bld) [#/Vol] 8.8 10*3/uL Normal 3.8-11.6 [facility] Comment on above: Performed By: #### C K, CMP, CRP, CBC, ESR #### [place] [address] [place] #### PPAITO #### [facility] , Lymphocytes [#/volume] in Bl ood by Automated countOrdered By: Perri Ceja on 11-06-2023 Lymphocytes (Bld) [#/Vol] 1.5 10*3/uL Normal 1.00-4.8 [facility] Comment on above: Performed By: #### C K, CMP, CRP, CBC, ESR #### [place] [address] [place] #### PAPITO #### [facility] , Lymphocytes/100 leukocytes i n Blood by Automated countOrdered By: Perri Ceja on 11-06-2023 Lymphocytes/100 WBC (Bld) 17.6 % Normal . [facility] Comment on above: Performed By: #### C K, CMP, CRP, CBC, ESR #### [place] [address] [place] #### PAPITO #### [facility] , MCH [Entitic mass] by Automa noah countOrdered By: Perri Ceja on 11-06-2023 MCH (RBC) [Entitic mass] 28.4 pg Normal 24.7-34.3 [facility] Comment on above: Performed By: #### C K, CMP, CRP, CBC, ESR #### [facility] [address] [place] [address] [place] #### PAPITO #### [facility] , MCHC Auto (RBC) [Mass/Vol]Or dered By: Perri Ceja on 11-06-2023 MCHC (RBC) [Mass/Vol] 33.6 g/dL 32.0-35.0 [facility] MCV [Entitic volume] by Auto mated countOrdered By: Perri Ceja on 11-06-2023 MCV (RBC) [Entitic vol] 84.6 fL Normal 80-100 [facility] Comment on above: Performed By: #### C K, CMP, CRP, CBC, ESR #### [place] [address] [place] #### PAPITO #### [facility] , Neutrophils [#/volume] in Bl ood by Automated countOrdered By: Perri Ceja on 11-06-2023 Neutrophils (Bld) [#/Vol] 6.3 10*3/uL Normal 1.8-7.7 [facility] Comment on above: Performed By: #### C K, CMP, CRP, CBC, ESR #### [facility] [address] [place] [address] [place] #### PAPITO #### [facility] , No Panel InformationOrdered By: Perri Ceja on 11-06-2023 Estimated GFR (CKD-EPI) 57.919 mL/Min [facility] Creatinine Clearance (Chem N/A [facility] Nucleated erythrocytes [Pres ence] in Blood by Automated countOrdered By: Perri Ceja on 11-06-2023 Nucleated RBC Auto Ql (Bld) 0.1 /100{WBC} 0-0.5 [facility] Platelet mean volume [Entiti c volume] in Blood by Automated countOrdered By: Perri Ceja on 11-06-2023 Platelet mean volume (Bld) [Entitic vol] 6.9 fL Normal 6.3-10.7 [facility] Comment on above: Performed By: #### C K, CMP, CRP, CBC, ESR #### [place] [address] [place] #### PAPITO #### [facility] , Platelets [#/volume] in Bloo d by Automated countOrdered By: Perri Ceja on 11-06-2023 Platelets (Bld) [#/Vol] 393 10*3/uL Normal 150-450 [facility] Comment on above: Performed By: #### C K, CMP, CRP, CBC, ESR #### [address] #### PAPITO #### [facility] , Potassium [Moles/volume] in Serum or PlasmaOrdered By: Perri Ceja on 11-06-2023 Potassium [Moles/Vol] 3.8 mmol/L Normal 3.5-5.1 [facility] Comment on above: Performed By: #### C K, CMP, CRP, CBC, ESR #### [place] [address] [place] #### PAPITO #### [facility] , Protein [Mass/volume] in Ser um or PlasmaOrdered By: Perri Ceja on 11-06-2023 Protein [Mass/Vol] 7.7 g/dL Normal 6.4-8.9 [facility] Comment on above: Performed By: #### C K, CMP, CRP, CBC, ESR #### [place] [address] [place] #### PAPITO #### [facility] , Serum globulin measurement b y calculation (mass/volume)Ordered By: Perri Ceja on 11-06-2023 Globulin (S) [Mass/Vol] 3.0 g/dL [facility] Comment on above: Performed By: #### C K, CMP, CRP, CBC, ESR #### [facility] [address] [place] [address] [place] #### PAPITO #### [facility] , Serum or plasma albumin/glob ulin mass ratioOrdered By: Perri Ceja on 11-06-2023 Albumin/Globulin [Mass ratio] 1.6 {ratio} [facility] Comment on above: Performed By: #### C K, CMP, CRP, CBC, ESR #### [address] #### PAPITO #### [facility] , Serum or plasma anion gap de terminationOrdered By: Perri Ceja on 11-06-2023 Anion gap [Moles/Vol] 12.7 mmol/L Normal 6.0-15.0 [facility] Comment on above: Performed By: #### C K, CMP, CRP, CBC, ESR #### [place] [address] [place] #### PAPITO #### [facility] , Sodium [Moles/volume] in Ser um or PlasmaOrdered By: Perri Ceja on 11-06-2023 Sodium [Moles/Vol] 139 mmol/L Normal 136-145 [facility] Comment on above: Performed By: #### C K, CMP, CRP, CBC, ESR #### [facility] [address] [place] [address] [place] #### PAPITO #### [facility] , Urea nitrogen [Mass/volume] in Serum or PlasmaOrdered By: Perri Ceja on 11-06-2023 Urea nitrogen [Mass/Vol] 17 mg/dL Normal 7-25 [facility] Comment on above: Performed By: #### C K, CMP, CRP, CBC, ESR #### [place] [address] [place] #### PAPITO #### [facility] , Orders Onlyon 10-02-2023 Orders Only [id number] Antonio Puri i 1975 F Date Provider Department Center 10/02/2023 [id number]-KATLU TXP None Family History Problem Relation Age of Onset Fibromyalgia Mother Heart disease Father Hypertension Sister Polycystic kidney disease Sister Hypertension Brother Polycystic kidney disease Brother Family Status - Relation Status Age at Mother Father Sister Brother Normal [facility] Follow-Upon 09-01-2023 Follow-Up [id number] Antonio Puri i 1975 F Date Provider Department Center 09/01/2023 344-SUJIT BERNAL TXP None Family History Problem Relation Age of Onset Fibromyalgia Mother Heart disease Father Hypertension Sister Polycystic kidney disease Sister Hypertension Brother Polycystic kidney disease Brother Family Status - Relation Status Age at Mother Father Sister Brother Level of Service:54515 SD OFFICE/OUTPATIENT ESTABLISHED MOD MDM 30-39 MIN () Reason for Visit and Comments: Kidney Follow-up [] - Patient reports pain all over her body that comes and goes. She would like to discuss swelling in her feet. Normal [facility] BILIRUBIN, DIRECTon 08-26-20 23 Magnesium [Mass/Vol] 0.1 mg/dL Normal 0-0.2 [facility] Comment on above: Performed By: #### L [id number] #### [facility] ([facility]) [address] [place] [address] CBC WITH AUTO DIFFERENTIALon 08-26-2023 Basophils (Bld) [#/Vol] 0.05 10*3/uL Normal 0.00-0.20 [facility] Comment on above: Performed By: #### L [id number] #### [facility] ([facility]) [address] [place] [address] Basophils/100 WBC (Bld) 0.6 % Normal 0.0-1.0 [facility] Comment on above: Performed By: #### L [id number] #### [facility] ([facility]) [address] [place] [address] Eosinophils (Bld) [#/Vol] 0.20 10*3/uL Normal 0.00-0.50 [facility] Comment on above: Performed By: #### L [id number] #### [facility] ([facility]) [address] [place] [address] Eosinophils/100 WBC (Bld) 2.5 % Normal 0.0-6.0 [facility] Comment on above: Performed By: #### L [id number] #### [facility] ([facility]) [address] [place] [address] Erythrocyte distribution width (RBC) [Ratio] 14.4 % Normal 11.5-15.0 [facility] Comment on above: Performed By: #### L [id number] #### [facility] ([facility]) [address] [place] [address] ERYTHROCYTE MEAN CORPUSCULAR HEMOGLOBIN CONCENTRATION (G/DL) BY AUTOMATED 32.9 g/dL Normal 32.0-35.0 [facility] Comment on above: Performed By: #### L [id number] #### [facility] ([facility]) [address] [place] [address] Hematocrit (Bld) [Volume fraction] 40.4 % Normal 36.0-48.0 [facility] Comment on above: Performed By: #### L [id number] #### [facility] ([facility]) [address] [place] [address] Hemoglobin (Bld) [Mass/Vol] 13.3 g/dL Normal 12.0-15.0 [facility] Comment on above: Performed By: #### L [id number] #### [facility] ([facility]) [address] [place] [address] Immature granulocytes (Bld) [#/Vol] 0.06 10*3/uL Normal 0.00-0.20 [facility] Comment on above: Performed By: #### L [id number] #### [facility] [address] [place] [address] Immature granulocytes/100 WBC (Bld) 0.7 % Normal 0.0-1.0 [facility] Comment on above: Performed By: #### L [id number] #### [facility] ([facility]) [address] [place] [address] Lymphocytes (Bld) [#/Vol] 1.19 10*3/uL Low 1.20-4.00 [facility] Comment on above: Performed By: #### L [id number] #### [facility] ([facility]) [address] [place] [address] Lymphocytes/100 WBC (Bld) 14.6 % Low 20.0-45.0 [facility] Comment on above: Performed By: #### L [id number] #### [facility] ([facility]) [address] [place] [address] MCH (RBC) [Entitic mass] 28.4 pg Normal 27.0-33.0 [facility] Comment on above: Performed By: #### L [id number] #### [facility] ([facility]) [address] [place] [address] MCV (RBC) [Entitic vol] 86.1 fL Normal 82.0-98.0 [facility] Comment on above: Performed By: #### L [id number] #### [facility] ([facility]) [address] [place] [address] Monocytes (Bld) [#/Vol] 0.42 10*3/uL Normal 0.10-1.00 [facility] Comment on above: Performed By: #### L [id number] #### [facility] ([facility]) [address] [place] [address] Monocytes/100 WBC (Bld) 5.2 % Normal 5.0-12.0 [facility] Comment on above: Performed By: #### L [id number] #### [facility] [address] [place] [address] Neutrophils (Bld) [#/Vol] 6.22 10*3/uL Normal 1.60-7.60 [facility] Comment on above: Performed By: #### L [id number] #### [facility] ([facility]) [address] [place] [address] Neutrophils/100 WBC (Bld) 76.4 % High 40.0-72.0 [facility] Comment on above: Performed By: #### L [id number] #### [facility] ([facility]) [address] [place] [address] NRBC (PER 100 WBCS) BY AUTOMATED COUNT 0.0 % Normal 0 [facility] Comment on above: Performed By: #### L [id number] #### [facility] ([facility]) [address] [place] [address] PLATELETS (10*3/UL) IN BLOOD AUTOMATED COUNT 374 10*3/uL Normal 150-400 [facility] Comment on above: Performed By: #### L [id number] #### [facility] ([facility]) [address] [place] [address] RBC (Bld) [#/Vol] 4.69 10*6/uL Normal 3.80-5.00 [facility] Comment on above: Performed By: #### L [id number] #### [facility] ([facility]) [address] [place] [address] WBC (Bld) [#/Vol] 8.14 10*3/uL Normal 4.00-10.60 [facility] Comment on above: Performed By: #### L [id number] #### [facility] ([facility]) [address] [place] [address] COMPREHENSIVE METABOLIC PANE Jonathan 08-26-2023 Albumin [Mass/Vol] 4.7 g/dL Normal 3.5-5.7 [facility] Comment on above: Performed By: #### L [id number] #### [facility] [address] [place] [address] ALP [Catalytic activity/Vol] 90 U/L Normal 34-104 [facility] Comment on above: Performed By: #### L [id number] #### [facility] ([facility]) [address] [place] [address] ALT [Catalytic activity/Vol] 26 U/L Normal 7-52 [facility] Comment on above: Performed By: #### L [id number] #### [facility] ([facility]) [address] [place] [address] Anion gap [Moles/Vol] 12 mmol/L Normal 7-20 [facility] Comment on above: Performed By: #### L [id number] #### [facility] [address] [place] [address] AST [Catalytic activity/Vol] 22 U/L Normal 13-39 [facility] Comment on above: Performed By: #### L [id number] #### [facility] [address] [place] [address] Bilirubin [Mass/Vol] 0.4 mg/dL Normal 0.3-1.0 [facility] Comment on above: Performed By: #### L [id number] #### [facility] ([facility]) [address] [place] [address] Calcium [Mass/Vol] 9.6 mg/dL Normal 8.6-10.3 [facility] Comment on above: Performed By: #### L [id number] #### [facility] [address] [place] [address] Chloride [Moles/Vol] 103 mmol/L Normal 98-107 [facility] Comment on above: Performed By: #### L [id number] #### [facility] [address] [place] [address] CO2 [Moles/Vol] 26 mmol/L Normal 21-31 [facility] Comment on above: Performed By: #### L [id number] #### [facility] ([facility]) [address] [place] [address] Creatinine [Mass/Vol] 1.12 mg/dL Normal 0.60-1.20 [facility] Comment on above: Performed By: #### L [id number] #### [facility] ([facility]) [address] [place] [address] GLOMERULAR FILTRATION RATE ML/MIN/1.73 SQ M.PREDICTED 61.0 mL/min/1.73m*2 Normal >60.0 [facility] Comment on above: Result Comment: [facility]???s estimated glomerular filtration rate (eGFR) [...] individuals. Performed By: #### L [id number] #### [facility] ([facility]) [address] [place] [address] Glucose [Mass/Vol] 125 mg/dL High 70-100 [facility] Comment on above: Performed By: #### L [id number] #### [facility] ([facility]) [address] [place] [address] Potassium [Moles/Vol] 3.1 mmol/L Low 3.5-5.1 [facility] Comment on above: Performed By: #### L [id number] #### [facility] ([facility]) [address] [place] [address] Protein [Mass/Vol] 7.4 g/dL Normal 6.0-8.3 [facility] Comment on above: Performed By: #### L [id number] #### [facility] ([facility]) [address] [place] [address] Sodium [Moles/Vol] 138 mmol/L Normal 136-145 [facility] Comment on above: Performed By: #### L [id number] #### [facility] ([facility]) [address] [place] [address] Urea nitrogen [Mass/Vol] 15 mg/dL Normal 7-25 [facility] Comment on above: Performed By: #### L [id number] #### [facility] ([facility]) [address] [place] [address] UREA NITROGEN/CREATININE (MASS RATIO) IN SER/PLAS 13.4 Normal [facility] Comment on above: Performed By: #### L [id number] #### [facility] ([facility]) [address] [place] [address] HEMOGLOBIN A1Con 08-26-2023 Glucose [Mass/Vol] 108 mg/dL Normal [facility] Comment on above: Performed By: #### L [id number] #### [facility] ([facility]) [address] [place] [address] HbA1c (Bld) [Mass fraction] 5.4 % Normal 4.0-6.0 [facility] Comment on above: Performed By: #### L [id number] #### [facility] ([facility]) [address] [place] [address] LIPID PANELon 08-26-2023 CHOL/HDL 4.7 mg/dL Normal [facility] Comment on above: Performed By: #### L [id number] #### [facility] ([facility]) [address] [place] [address] Cholesterol [Mass/Vol] 198 mg/dL Normal 120-200 [facility] Comment on above: Performed By: #### L [id number] #### [facility] ([facility]) [address] [place] [address] Magnesium [Mass/Vol] 248 mg/dL High 40-149 [facility] Comment on above: Result Comment: TRIG LYCERIDE REFERENCE RANGE: 20 YEARS AND OLDER CARDIOVASCULAR RISK LESS THAN 150 mg/dL LOW RISK 150 TO 199 mg/dL BORDERLINE RISK 200 mg/dL AND GREATER HIGH RISK Performed By: #### L [id number] #### [facility] ([facility]) [address] [place] [address] Magnesium [Mass/Vol] 106 mg/dL Normal 0-160 [facility] Comment on above: Performed By: #### L [id number] #### [facility] ([facility]) [address] [place] [address] Magnesium [Mass/Vol] 42 mg/dL Normal 23-92 [facility] Comment on above: Performed By: #### L [id number] #### [facility] ([facility]) [address] [place] [address] NON HDL CHOL. (LDL+VLDL) 156 Normal [facility] Comment on above: Performed By: #### L [id number] #### [facility] ([facility]) [address] [place] [address] TOTAL VLDL-C 50 mg/dL High 0-40 [facility] Comment on above: Performed By: #### L [id number] #### [facility] ([facility]) [address] [place] [address] Labon 08-26-2023 Lab [id number] Antonio Puri i 1975 F Date Provider Department Center 08/26/2023 [facility] Family History Problem Relation Age of Onset Fibromyalgia Mother Heart disease Father Hypertension Sister Polycystic kidney disease Sister Hypertension Brother Polycystic kidney disease Brother Family Status - Relation Status Age at Mother Father Sister Brother Normal [facility] MAGNESIUMon 08-26-2023 Magnesium [Mass/Vol] 1.5 mg/dL Low 1.9-2.7 [facility] Comment on above: Performed By: #### L [id number] #### [facility] [address] [place] [address] PHOSPHORUSon 08-26-2023 Magnesium [Mass/Vol] 2.9 mg/dL Normal 2.5-5.0 [facility] Comment on above: Performed By: #### L [id number] #### [facility] [address] [place] [address] TACROLIMUS LEVELon Tacrolimus (Bld) [Mass/Vol] 9.2 ng/mL Normal 5.0-20.0 [facility] Comment on above: Result Comment: The [facility] Tacrolimus assay is a delayed one-step immunoassay for the quantitative determination of tacrolimus in human whole blood using the chemiluminescent microparticle immunoassay (CMIA) technology with flexible assay protocols, referred to as Chemiflex. Performed By: #### L [id number] #### [facility] ([facility]) [address] [place] [address] URIC ACIDon 08-26-2023 Magnesium [Mass/Vol] 5.1 mg/dL Normal 2.3-6.6 [facility] Comment on above: Performed By: #### L [id number] #### [facility] ([facility]) [address] [place] [address] COMPREHENSIVE METABOLIC PANE Jonathan 08-06-2023 Albumin [Mass/Vol] 4.7 g/dL Normal 3.5-5.7 [facility] Comment on above: Performed By: #### L [id number] #### [facility] ([facility]) [address] [place] [address] ALP [Catalytic activity/Vol] 85 U/L Normal 34-104 [facility] Comment on above: Performed By: #### L [id number] #### [facility] ([facility]) [address] [place] [address] ALT [Catalytic activity/Vol] 25 U/L Normal 7-52 [facility] Comment on above: Performed By: #### L [id number] #### [facility] [address] [place] [address] Anion gap [Moles/Vol] 14 mmol/L Normal 7-20 [facility] Comment on above: Performed By: #### L [id number] #### [facility] [address] [place] [address] AST [Catalytic activity/Vol] 23 U/L Normal 13-39 [facility] Comment on above: Performed By: #### L [id number] #### [facility] ([facility]) [address] [place] [address] Bilirubin [Mass/Vol] 0.5 mg/dL Normal 0.3-1.0 [facility] Comment on above: Performed By: #### L [id number] #### [facility] [address] [place] [address] Calcium [Mass/Vol] 9.5 mg/dL Normal 8.6-10.3 [facility] Comment on above: Performed By: #### L [id number] #### [facility] [address] [place] [address] Chloride [Moles/Vol] 105 mmol/L Normal 98-107 [facility] Comment on above: Performed By: #### L [id number] #### [facility] [address] [place] [address] CO2 [Moles/Vol] 21 mmol/L Normal 21-31 [facility] Comment on above: Performed By: #### L [id number] #### [facility] [address] [address] Creatinine [Mass/Vol] 1.23 mg/dL High 0.60-1.20 [facility] Comment on above: Performed By: #### L [id number] #### [facility] [address] [place] [address] GLOMERULAR FILTRATION RATE ML/MIN/1.73 SQ M.PREDICTED 54.5 mL/min/1.73m*2 Low >60.0 [facility] Comment on above: Result Comment: The [facility]???s estimated glomerular filtration rate (eGFR) [...] individuals. Performed By: #### L [id number] #### [facility] ([facility]) [address] [place] [address] Glucose [Mass/Vol] 133 mg/dL High 70-100 [facility] Comment on above: Performed By: #### L [id number] #### [facility] ([facility]) [address] [place] [address] Potassium [Moles/Vol] 3.4 mmol/L Low 3.5-5.1 [facility] Comment on above: Performed By: #### L [id number] #### [facility] ([facility]) [address] [place] [address] Protein [Mass/Vol] 7.4 g/dL Normal 6.0-8.3 [facility] Comment on above: Performed By: #### L [id number] #### [facility] ([facility]) [address] [place] [address] Sodium [Moles/Vol] 137 mmol/L Normal 136-145 [facility] Comment on above: Performed By: #### L [id number] #### [facility] ([facility]) [address] [place] [address] Urea nitrogen [Mass/Vol] 14 mg/dL Normal 7-25 [facility] Comment on above: Performed By: #### L [id number] #### [facility] ([facility]) [address] [place] [address] UREA NITROGEN/CREATININE (MASS RATIO) IN SER/PLAS 11.4 Normal [facility] Comment on above: Performed By: #### L [id number] #### [facility] ([facility]) [address] [place] [address] Labon 08-06-2023 Lab [id number] Antonio Puri i 1975 F Date Provider Department Center 08/06/2023 [facility] C Family History Problem Relation Age of Onset Fibromyalgia Mother Heart disease Father Hypertension Sister Polycystic kidney disease Sister Hypertension Brother Polycystic kidney disease Brother Family Status - Relation Status Age at Mother Father Sister Brother Normal [facility] Orders Onlyon 08-06-2023 Orders Only [id number] Antonio Puri sarath 1975 F Date Provider Department Center 08/06/2023 TAINA ALVARADO TXP None Family History Problem Relation Age of Onset Fibromyalgia Mother Heart disease Father Hypertension Sister Polycystic kidney disease Sister Hypertension Brother Polycystic kidney disease Brother Family Status - Relation Status Age at Mother Father Sister Brother Normal [facility] SINGLE ANTIGEN CLASS Ion AB SCREEN COMMENTS No Class I donor spe cific antibody identified Normal [facility] Comment on above: Order Comment: To be used after initial monthly order expires Performed By: #### L [id number] #### [facility]RAC) [address] [place] [address] [place] CLASS I TESTED DATE [id number] Normal [facility] Comment on above: Order Comment: To be used after initial monthly order expires Performed By: #### L [id number] #### [facility]ISTOTRAC) [address] [place], [place] [address] SIGNED BY Signed by Sree escamilla [facility]) PARKER([facility]), Accounts Receivable Clerk Transplant Immunology Normal [facility] Comment on above: Order Comment: To be used after initial monthly order expires Result Comment: Clas s I Antigen Microbeads Performed By: #### L [id number] #### [facility]ISTOTRAC) [address] [place] [address] [facility] Performed By: #### L [id number] #### [facility] [address] [place] [address] SINGLE ANTIGEN CLASS 1 TEST METHOD Class I Single Antigen Normal [facility] Comment on above: Order Comment: To be used after initial monthly order expires Performed By: #### L [id number] #### [facility]ISTOTRAC) [address] [place] [address] [place] SINGLE ANTIGEN CLASS IIon AB SCREEN COMMENTS No Class II donor specific antibody identified Normal [facility] Comment on above: Order Comment: To be used after initial monthly order expires Performed By: #### L [id number] #### [facility] ([facility]) [address] [place] [address] CLASS II TESTED DATE [id number] Normal [facility] Comment on above: Order Comment: To be used after initial monthly order expires Performed By: #### L [id number] #### [facility] ([facility]) [address] [place] [address] SINGLE ANTIGEN CLASS 2 TEST METHOD Class II Single Antigen Normal [facility] Comment on above: Order Comment: To be used after initial monthly order expires Result Comment: Clas s II Antigen Microbeads Performed By: #### L [id number] #### [facility] ([facility]) [address] [place] [address] MM screening mammo BI w/CADo n 07-30-2023 MM screening mammo BI w/CAD [facility] [place] [address] Mammography Report Signed Patient: Mandeep Puri MR#: [id number] 15 : 1975 Acct:[id number] Age/Sex: 47 / F ADM Date: 07/30/23 Loc: [place] Room: Type: [facility] Attending Dr: Referral Self Copies [...] mammogram. Impression dictated by: Evan Messina Jr., Jaylan07/30/2023 4:05 PM Dictation Location: [facility] Transcribed By: [facility] 07/30/231604 Dictated By: Evan Messina Jr, DO 07/30/231603 Signed By: 07/30/23 160 Normal [facility] CBC WITH AUTO DIFFERENTIALon 07-24-2023 Basophils (Bld) [#/Vol] 0.06 10*3/uL Normal 0.00-0.20 [facility] Comment on above: Performed By: #### L [id number] #### [facility] ([facility]) [address] [place] [address] Basophils/100 WBC (Bld) 0.7 % Normal 0.0-1.0 [facility] Comment on above: Performed By: #### L [id number] #### [facility] (AKER) [address] [place] [address] Eosinophils (Bld) [#/Vol] 0.28 10*3/uL Normal 0.00-0.50 [facility] Comment on above: Performed By: #### L [id number] #### [facility] ([facility]) [address] [place] [address] Eosinophils/100 WBC (Bld) 3.3 % Normal 0.0-6.0 [facility] Comment on above: Performed By: #### L [id number] #### [facility] ([facility]) [address] [place] [address] Erythrocyte distribution width (RBC) [Ratio] 14.6 % Normal 11.5-15.0 [facility] Comment on above: Performed By: #### L [id number] #### [facility] [address] [place] [address] ERYTHROCYTE MEAN CORPUSCULAR HEMOGLOBIN CONCENTRATION (G/DL) BY AUTOMATED 33.2 g/dL Normal 32.0-35.0 [facility] Comment on above: Performed By: #### L [id number] #### [facility] ([facility]) [address] [place] [address] Hematocrit (Bld) [Volume fraction] 39.7 % Normal 36.0-48.0 [facility] Comment on above: Performed By: #### L [id number] #### [facility] ([facility]) [address] [place] [address] Hemoglobin (Bld) [Mass/Vol] 13.2 g/dL Normal 12.0-15.0 [facility] Comment on above: Performed By: #### L [id number] #### [facility] ([facility]) [address] [place] [address] Immature granulocytes (Bld) [#/Vol] 0.09 10*3/uL Normal 0.00-0.20 [facility] Comment on above: Performed By: #### L [id number] #### [facility] ([facility]) [address] [place] [address] Immature granulocytes/100 WBC (Bld) 1.1 % High 0.0-1.0 [facility] Comment on above: Performed By: #### L [id number] #### [facility] [address] [place] [address] Lymphocytes (Bld) [#/Vol] 1.41 10*3/uL Normal 1.20-4.00 [facility] Comment on above: Performed By: #### L [id number] #### [facility] ([facility]) [address] [facility] [place] [place] [address] Lymphocytes/100 WBC (Bld) 16.5 % Low 20.0-45.0 [facility] Comment on above: Performed By: #### L [id number] #### [facility] ([facility]) [address] [place] [address] MCH (RBC) [Entitic mass] 28.9 pg Normal 27.0-33.0 [facility] Comment on above: Performed By: #### L [id number] #### [facility] [address] [place] [address] MCV (RBC) [Entitic vol] 86.9 fL Normal 82.0-98.0 [facility] Comment on above: Performed By: #### L [id number] #### [facility] [address] [place] [address] Monocytes (Bld) [#/Vol] 0.44 10*3/uL Normal 0.10-1.00 [facility] Comment on above: Performed By: #### L [id number] #### [facility] ([facility]) [address] [place] [address] Monocytes/100 WBC (Bld) 5.1 % Normal 5.0-12.0 [facility] Comment on above: Performed By: #### L [id number] #### [facility] ([facility]) [address] [place] [address] Neutrophils (Bld) [#/Vol] 6.28 10*3/uL Normal 1.60-7.60 [facility] Comment on above: Performed By: #### L [id number] #### [facility] [address] [place] [address] Neutrophils/100 WBC (Bld) 73.3 % High 40.0-72.0 [facility] Comment on above: Performed By: #### L [id number] #### [facility] [address] [place] [address] NRBC (PER 100 WBCS) BY AUTOMATED COUNT 0.0 % Normal 0 [facility] Comment on above: Performed By: #### L [id number] #### [facility] ([facility]) [address] [place] [address] PLATELETS (10*3/UL) IN BLOOD AUTOMATED COUNT 371 10*3/uL Normal 150-400 [facility] Comment on above: Performed By: #### L [id number] #### [facility] [address] [place] [address] RBC (Bld) [#/Vol] 4.57 10*6/uL Normal 3.80-5.00 [facility] Comment on above: Performed By: #### L [id number] #### [facility] [address] [place] [address] WBC (Bld) [#/Vol] 8.56 10*3/uL Normal 4.00-10.60 [facility] Comment on above: Performed By: #### L [id number] #### [facility] [address] [place] [address] Labon 07-24-2023 Lab [id number] KhushiBrand i 1975 F Date Provider Department Center 07/24/2023 [facility] Family History Problem Relation Age of Onset Fibromyalgia Mother Heart disease Father Hypertension Sister Polycystic kidney disease Sister Hypertension Brother Polycystic kidney disease Brother Family Status - Relation Status Age at Mother Father Sister Brother Normal [facility] Orders Onlyon 07-24-2023 Orders Only [id number] KhushiBrand i 1975 Date Provider Department Center 07/24/2023 1971-[facility] TXP None Family History Problem Relation Age of Onset Fibromyalgia Mother Heart disease Father Hypertension Sister Polycystic kidney disease Sister Hypertension Brother Polycystic kidney disease Brother Family Status - Relation Status Age at Mother Father Sister Brother Normal [facility] BASIC METABOLIC PANELon 07-06 Anion gap [Moles/Vol] 16 mmol/L Normal 7-20 [facility] Comment on above: Performed By: #### L [id number] #### [facility] ([facility]) [address] [place] [address] Calcium [Mass/Vol] 9.7 mg/dL Normal 8.6-10.3 [facility] Comment on above: Performed By: #### L [id number] #### [facility] ([facility]) [address] [place] [address] Chloride [Moles/Vol] 104 mmol/L Normal 98-107 [facility] Comment on above: Performed By: #### L [id number] #### [facility] ([facility]) [address] [place] [address] CO2 [Moles/Vol] 23 mmol/L Normal 21-31 [facility] Comment on above: Performed By: #### L [id number] #### [facility] ([facility]) [address] [place] [address] Creatinine [Mass/Vol] 1.18 mg/dL Normal 0.60-1.20 [facility] Comment on above: Performed By: #### L [id number] #### [facility] ([facility]) [address] [place] [address] GLOMERULAR FILTRATION RATE ML/MIN/1.73 SQ M.PREDICTED 57.3 mL/min/1.73m*2 Low >60.0 [facility] Comment on above: Result Comment: The [facility]???s estimated glomerular filtration rate (eGFR) [...] individuals. Performed By: #### L [id number] #### [facility] ([facility]) [address] [place] [address] Glucose [Mass/Vol] 134 mg/dL High 70-100 [facility] Comment on above: Performed By: #### L [id number] #### [facility] [address] [place] [address] Potassium [Moles/Vol] 3.5 mmol/L Normal 3.5-5.1 [facility] Comment on above: Performed By: #### L [id number] #### [facility] ([facility]) [address] [place] [address] Sodium [Moles/Vol] 139 mmol/L Normal 136-145 [facility] Comment on above: Performed By: #### L [id number] #### [facility] ([facility]) [address] [address] Urea nitrogen [Mass/Vol] 16 mg/dL Normal 7-25 [facility] Comment on above: Performed By: #### L [id number] #### [facility] ([facility]) [address] [address] UREA NITROGEN/CREATININE (MASS RATIO) IN SER/PLAS 13.6 Normal [facility] Comment on above: Performed By: #### L [id number] #### [facility] ([facility]) [address] [address] CBC WITH AUTO DIFFERENTIALon 07-17-2023 Basophils (Bld) [#/Vol] 0.05 10*3/uL Normal 0.00-0.20 [facility] Comment on above: Performed By: #### L [id number] #### [facility] ([facility]) [address] [place] [address] Basophils/100 WBC (Bld) 0.6 % Normal 0.0-1.0 [facility] Comment on above: Performed By: #### L [id number] #### [facility] ([facility]) [address] [place] [address] Eosinophils (Bld) [#/Vol] 0.21 10*3/uL Normal 0.00-0.50 [facility] Comment on above: Performed By: #### L [id number] #### [facility] [address] [address] Eosinophils/100 WBC (Bld) 2.7 % Normal 0.0-6.0 [facility] Comment on above: Performed By: #### L [id number] #### [facility] [address] [place] [address] Erythrocyte distribution width (RBC) [Ratio] 14.3 % Normal 11.5-15.0 [facility] Comment on above: Performed By: #### L [id number] #### [facility] ([facility]) [address] [place] [address] ERYTHROCYTE MEAN CORPUSCULAR HEMOGLOBIN CONCENTRATION (G/DL) BY AUTOMATED 32.6 g/dL Normal 32.0-35.0 [facility] Comment on above: Performed By: #### L [id number] #### [facility] ([facility]) [address] [place] [address] Hematocrit (Bld) [Volume fraction] 38.3 % Normal 36.0-48.0 [facility] Comment on above: Performed By: #### L [id number] #### [facility] [address] [place] [address] Hemoglobin (Bld) [Mass/Vol] 12.5 g/dL Normal 12.0-15.0 [facility] Comment on above: Performed By: #### L [id number] #### [facility] ([facility]) [address] [place] [address] Immature granulocytes (Bld) [#/Vol] 0.10 10*3/uL Normal 0.00-0.20 [facility] Comment on above: Performed By: #### L [id number] #### [facility] ([facility]) [address] [facility] [place] [address] Immature granulocytes/100 WBC (Bld) 1.3 % High 0.0-1.0 [facility] Comment on above: Performed By: #### L [id number] #### [facility] ([facility]) [address] [place] [address] Lymphocytes (Bld) [#/Vol] 1.37 10*3/uL Normal 1.20-4.00 [facility] Comment on above: Performed By: #### L [id number] #### [facility] ([facility]) [address] [place] [address] Lymphocytes/100 WBC (Bld) 17.4 % Low 20.0-45.0 [facility] Comment on above: Performed By: #### L [id number] #### [facility] ([facility]) [address] [place] [address] MCH (RBC) [Entitic mass] 28.9 pg Normal 27.0-33.0 [facility] Comment on above: Performed By: #### L [id number] #### [facility] ([facility]) [address] [place] [address] MCV (RBC) [Entitic vol] 88.5 fL Normal 82.0-98.0 [facility] Comment on above: Performed By: #### L [id number] #### [facility] ([facility]) [address] [place] [address] Monocytes (Bld) [#/Vol] 0.44 10*3/uL Normal 0.10-1.00 [facility] Comment on above: Performed By: #### L [id number] #### [facility] ([facility]) [address] [place] [address] Monocytes/100 WBC (Bld) 5.6 % Normal 5.0-12.0 [facility] Comment on above: Performed By: #### L [id number] #### [facility] ([facility]) [address] [place] [address] Neutrophils (Bld) [#/Vol] 5.69 10*3/uL Normal 1.60-7.60 [facility] Comment on above: Performed By: #### L [id number] #### [facility] ([facility]) [address] [place] [address] Neutrophils/100 WBC (Bld) 72.4 % High 40.0-72.0 [facility] Comment on above: Performed By: #### L [id number] #### [facility] ([facility]) [address] [place] [address] NRBC (PER 100 WBCS) BY AUTOMATED COUNT 0.0 % Normal 0 [facility] Comment on above: Performed By: #### L [id number] #### [facility] ([facility]) [address] [place] [address] PLATELETS (10*3/UL) IN BLOOD AUTOMATED COUNT 349 10*3/uL Normal 150-400 [facility] Comment on above: Performed By: #### L [id number] #### [facility] ([facility]) [address] [place] [address] RBC (Bld) [#/Vol] 4.33 10*6/uL Normal 3.80-5.00 [facility] Comment on above: Performed By: #### L [id number] #### [facility] ([facility]) [address] [place] [address] WBC (Bld) [#/Vol] 7.86 10*3/uL Normal 4.00-10.60 [facility] Comment on above: Performed By: #### L [id number] #### [facility] ([facility]) [address] [place] [address] HEPATIC FUNCTION PANELon Albumin [Mass/Vol] 4.4 g/dL Normal 3.5-5.7 [facility] Comment on above: Performed By: #### L [id number] #### [facility] ([facility]) [address] [place] [address] ALP [Catalytic activity/Vol] 83 U/L Normal 34-104 [facility] Comment on above: Performed By: #### L [id number] #### [facility] ([facility]) [address] [place] [address] ALT [Catalytic activity/Vol] 25 U/L Normal 7-52 [facility] Comment on above: Performed By: #### L [id number] #### [facility] ([facility]) [address] [place] [address] AST [Catalytic activity/Vol] 21 U/L Normal 13-39 [facility] Comment on above: Performed By: #### L [id number] #### [facility] [address] [place] [address] Bilirubin [Mass/Vol] 0.4 mg/dL Normal 0.3-1.0 [facility] Comment on above: Performed By: #### L [id number] #### [facility] [address] [place] [address] Magnesium [Mass/Vol] 0.1 mg/dL Normal 0-0.2 [facility] Comment on above: Performed By: #### L [id number] #### [facility] [address] [place] [address] Protein [Mass/Vol] 7.3 g/dL Normal 6.0-8.3 [facility] Comment on above: Performed By: #### L [id number] #### [facility] [address] [place] [address] Labon 07-17-2023 Lab [id number] Khushi,Brand i 1975 F Date Provider Department [place] 07/17/2023 2[facility] C Family History Problem Relation Age of Onset Fibromyalgia Mother Heart disease Father Hypertension Sister Polycystic kidney disease Sister Hypertension Brother Polycystic kidney disease Brother Family Status - Relation Status Age at Mother Father Sister Brother Normal [facility] MAGNESIUMon 07-17-2023 Magnesium [Mass/Vol] 1.6 mg/dL Low 1.9-2.7 [facility] Comment on above: Performed By: #### L [id number] #### [facility] [address] [place] [address] Orders Onlyon 07-17-2023 Orders Only [id number] Khushi,Brand i 1975 F Date Provider Department Center 07/17/20231970-[facility] TXP None Family History Problem Relation Age of Onset Fibromyalgia Mother Heart disease Father Hypertension Sister Polycystic kidney disease Sister Hypertension Brother Polycystic kidney disease Brother Family Status - Relation Status Age at Mother Father Sister Brother Normal [facility] PHOSPHORUSon 07-17-2023 Magnesium [Mass/Vol] 3.3 mg/dL Normal 2.5-5.0 [facility] Comment on above: Performed By: #### L [id number] #### [facility] ([facility]) [address] [place] [address] TACROLIMUS LEVELon Tacrolimus (Bld) [Mass/Vol] 6.5 ng/mL Normal 5.0-20.0 [facility] Comment on above: Result Comment: The [facility] Tacrolimus assay is a delayed one-step immunoassay for the quantitative determination of tacrolimus in human whole blood using the chemiluminescent microparticle immunoassay (CMIA) technology with flexible assay protocols, referred to as Chemiflex. Performed By: #### L [id number] #### [facility] ([facility]) [address] [place] [address] URIC ACIDon 07-17-2023 Magnesium [Mass/Vol] 4.9 mg/dL Normal 2.3-6.6 [facility] Comment on above: Performed By: #### L [id number] #### [facility] ([facility]) [address] [place] [address] 29on 07-16-2023 29 Addended by: LU STEPHENS on: 07/16/2023 03:23 PM Modules accepted: Orders Normal [facility] Documentationon 07-16-2023 Documentation [id number] Antonio Puri i 1975 F Date Provider Department Center 07/16/20231970-[facility] TXP None Family History Problem Relation Age of Onset Fibromyalgia Mother Heart disease Father Hypertension Sister Polycystic kidney disease Sister Hypertension Brother Polycystic kidney disease Brother Family Status - Relation Status Age at Mother Father Sister Brother Reason for Visit and Comments: Kidney Follow-up [[id number]] [facility] PTH INTACTon 07-30-2022 PTH, Intact 107 pg/mL Critically high 15-65 [facility] Comment on above: Performed By: #### M G, URIC, RENAL #### [facility] [address] [place] [address] Dr. Hari Palmer FERRITINon 07-29-2022 Ferritin [Mass/Vol] 194.0 ng/mL Critically high 6.2-137.0 [facility] Comment on above: Performed By: #### M G, URIC, RENAL #### [facility] [address] [place] [address] Dr. Hari Palmer HEMOGRAM AND PLATELon 2021 Hematocrit (Bld) [Volume fraction] 32.8 % Critically low 36.0-48.0 [facility] Comment on above: Performed By: #### M G, URIC, RENAL #### [facility] [address] [place] [address] Dr. Hari Palmer Hemoglobin (Bld) [Mass/Vol] 10.8 g/dL Critically low 12.0-16.0 [facility] Comment on above: Performed By: #### M G, URIC, RENAL #### [facility] [address] [place] [address] Dr. Hari Palmer MCH (RBC) [Entitic mass] 31.7 pg Normal 26.7-34.0 [facility] Comment on above: Performed By: #### M G, URIC, RENAL #### [facility] [address] [place] [address] Dr. Hari Palmer MCHC (RBC) [Mass/Vol] 32.9 g/dL Normal 29.9-35.2 [facility] Comment on above: Performed By: #### M G, URIC, RENAL #### [facility] [address] [place] [address] Dr. Hari Palmer MCV (RBC) [Entitic vol] 96.2 fL Normal 81.0-99.0 [facility] Comment on above: Performed By: #### M G, URIC, RENAL #### [facility] [address] [place] [address] Dr. Hari Palmer PLT 297 103/ul Normal 150-450 [facility] Comment on above: Performed By: #### M Edy, URIC, RENAL #### [facility] [address] [place] [address] Dr. Hari Palmer RBC 3.41 106/ul Critically low 4.20-5.40 [facility] Comment on above: Performed By: #### M G, URIC, RENAL #### [facility] [address] [place] [address] Dr. Hari Palmer WBC 7.1 103/ul Normal 4.0-11.0 [facility] Comment on above: Performed By: #### M Edy, URIC, RENAL #### [facility] [address] [place] [address] Dr. Hari Palmer IRON AND TIBCon 07-29-2022 % SATURATION 19.0 % Normal [facility] Comment on above: Performed By: #### M Edy URIC, RENAL #### [facility] [address] [place] [address] Dr. Hari Palmer Iron [Mass/Vol] 48.0 ug/dL Critically low 50.0-170.0 [facility] Comment on above: Performed By: #### M Edy, URIC, RENAL #### [facility] [address] [place] [address] Dr. Hari Palmer TIBC DIRECT 252.0 ug/dL Normal 250.0-450.0 [facility] Comment on above: Performed By: #### M Edy, URIC, RENAL #### [facility] [address] [place] [address] Dr. Hari Palmer MAGNESIUMon 07-29-2022 Magnesium [Mass/Vol] 2.0 mg/dL Normal 1.8-2.4 [facility] Comment on above: Performed By: #### M G, URIC, RENAL #### [facility] [address] [place] [address] Dr. Hari Palmer RENAL FUNCTION PANELon 07-29 Albumin [Mass/Vol] 3.6 g/dL Normal 3.4-5.0 [facility] Comment on above: Performed By: #### M G, URIC, RENAL #### [facility] [address] [address] [address] Hari Palmer Calcium [Mass/Vol] 8.7 mg/dL Normal 8.5-10.1 [facility] Comment on above: Performed By: #### M G, URIC, RENAL #### [facility] [address] [address] [address] Hari Palmer Chloride [Moles/Vol] 104 mmol/L Normal 98-107 [facility] Comment on above: Performed By: #### M G, URIC, RENAL #### [facility] [address] [address] [address] Hari Palmer CO2 [Moles/Vol] 21.8 mmol/L Normal 21.0-32.0 [facility] Comment on above: Performed By: #### M G, URIC, RENAL #### [facility] [address] [place] [address] Dr. Hari Palmer Creatinine [Mass/Vol] 3.83 mg/dL Critically high 0.55-1.02 [facility] Comment on above: Performed By: #### M G, URIC, RENAL #### [facility] [address] [address] [address] Hari Palmer EGFR-AF PAPUA [place] 15 mL/min/1.73m2 Critically low >=60 [facility] Comment on above: Performed By: #### M G, URIC, RENAL #### [facility] [address] [address] [address] Hari Palmer EGFR-NON AF PAPUA [place] 13 mL/min/1.73m2 Critically low >=60 [facility] Comment on above: Performed By: #### M G, URIC, RENAL #### [facility] [address] [address] [address] Hari Palmer Glucose [Mass/Vol] 108 mg/dL Critically high 74-106 [facility] Comment on above: Performed By: #### M G, URIC, RENAL #### [facility] [address] [address] [address] Hari Palmer Phosphate [Mass/Vol] 5.4 mg/dL Critically high 2.6-4.7 [facility] Comment on above: Performed By: #### M G, URIC, RENAL #### [facility] [address] [place] [address] Dr. Hari Palmer Potassium [Moles/Vol] 3.9 mmol/L Normal 3.5-5.1 [facility] Comment on above: Performed By: #### M G, URIC, RENAL #### [facility] [address] [place] [address] Dr. Hari Palmer Sodium [Moles/Vol] 137 mmol/L Normal 136-145 [facility] Comment on above: Performed By: #### M dEy, URIC, RENAL #### [facility] [address] [place] [address] Dr. Hari Palmer Urea nitrogen [Mass/Vol] 47.0 mg/dL Critically high 7.0-18.0 [facility] Comment on above: Performed By: #### M G, URIC, RENAL #### [facility] [address] [place] [address] Dr. Hari Palmer URIC ACID SERUMon 07-29-2022 Urate [Mass/Vol] 6.3 mg/dL Critically high 2.6-6.0 [facility] Comment on above: Performed By: #### M G, URIC, RENAL #### [facility] [address] [place] [address] Dr. Hari Palmer URINE T PROTEIN CREAT RATIOo n 07-29-2022 Protein (U) [Mass/Vol] 29.7 mg/dL Critically high <=12.0 [facility] Comment on above: Performed By: #### M G, URIC, RENAL #### [facility] [address] [place] [address] Dr. Hari Palmer UR PROT CREAT RAT 0.56 Normal [facility] Comment on above: Performed By: #### M G, URIC, RENAL #### [facility] [address] [place] [address] Dr. Hari Palmer URINE CREAT 53.35 mg/dL Normal 20.00-300.00 [facility] Comment on above: Performed By: #### M G, URIC, RENAL #### [facility] [address] [place], [place] [address] Dr. Hari Palmer VITAMIN D 25 OHon 07-29-2022 VIT D 25-OH 38.8 ng/mL Normal [facility] Comment on above: Performed By: #### M G, URIC, RENAL #### [facility] [address] [id number] Hari Palmer VIT D RANGES SEE BELOW Normal [facility] Comment on above: Result Comment: <20 ng/mL Vit D deficient 20 - <30 ng/mL Vit D insufficient 30 - 100 ng/mL Vit D sufficient >100 ng/mL Potential Toxicity Performed By: #### M G, URIC, RENAL #### [facility] [address] [address] [address] Hari Palmer Albumin [Mass/volume] in Ser um or PlasmaOrdered By: Stanley Forman on 06-20-2022 Albumin [Mass/Vol] 3.9 g/dL 3.2-5.5 [facility] Basophils Auto (Bld) [#/Vol] Ordered By: Stanley Forman on 06-20-2022 Basophils (Bld) [#/Vol] 0.1 10*3/uL 0.0-0.2 [facility] Basophils/100 WBC Auto (Bld) Ordered By: Stanley Forman on 06-20-2022 Basophils/100 WBC (Bld) 0.7 % . [facility] Blood hemoglobin measurement (mass/volume)Ordered By: Stanley Forman on 06-20-2022 Hemoglobin (Bld) [Mass/Vol] 10.8 g/dL 11.8-15.4 [facility] Blood leukocytes automated c ount (number/volume)Ordered By: Stanley Forman on 06-20-2022 WBC (Bld) [#/Vol] 11.8 10*3/uL 4.5-11.0 [facility] C reactive protein [Mass/vol ume] in Serum or PlasmaOrdered By: Stanley Forman on 06-20-2022 CRP [Mass/Vol] 5.2 mg/dL 0.0-1.0 [facility] Creatinine and Glomerular fi ltration rate.predicted panel (S/P/Bld)Ordered By: Stanley Forman on 06-20-2022 Creatinine [Mass/Vol] 4.49 mg/dL 0.44-1.03 [facility] Eosinophils Auto (Bld) [#/Vo l]Ordered By: Stanley Forman on 06-20-2022 Eosinophils (Bld) [#/Vol] 0.4 10*3/uL 0.0-0.45 [facility] Eosinophils/100 WBC Auto (Bl d)Ordered By: Stanley Forman on 06-20-2022 Eosinophils/100 WBC (Bld) 3.2 % . [facility] Erythrocyte distribution wid th Auto (RBC) [Ratio]Ordered By: Stanley Forman on 06-20-2022 Erythrocyte distribution width (RBC) [Ratio] 14.0 % 11.9-15.3 [facility] Erythrocyte sedimentation ra te by Photometric methodOrdered By: Stanley Forman on 06-20-2022 ESR Photometric method (Bld) [Velocity] 67 mm/hr 0-19 [facility] Estimated glomerular filtrat ion rate (GFR) non- AmericanOrdered By: Stanley Forman on 06-20-2022 GFR/1.73 sq M.predicted among non-blacks MDRD (S/P/Bld) [Vol rate/Area] 11 mL/Min [facility] Globulin Calc (S) [Mass/Vol] Ordered By: Stanley Forman on 06-20-2022 Globulin (S) [Mass/Vol] 3.5 g/dL [facility] Hematocrit Auto (Bld) [Volum e fraction]Ordered By: Stanley Forman on 06-20-2022 Hematocrit (Bld) [Volume fraction] 33.1 % 34.0-46.4 [facility] - Hematology and Cell countsOrdered By: Stanley Forman on 06-20-2022 Nucleated RBC/100 WBC (Bld) [Ratio] 0.0 % 0-0.5 [facility] Lymphocytes Auto (Bld) [#/Vo l]Ordered By: Stanley Forman on 06-20-2022 Lymphocytes (Bld) [#/Vol] 1.5 10*3/uL 1.00-4.8 [facility] Lymphocytes/100 WBC Auto (Bl d)Ordered By: Stanley Forman on 06-20-2022 Lymphocytes/100 WBC (Bld) 12.3 % . [facility] MCH Auto (RBC) [Entitic mass ]Ordered By: Stanley Forman on 06-20-2022 MCH (RBC) [Entitic mass] 31.1 pg 24.7-34.3 [facility] MCHC Auto (RBC) [Mass/Vol]Or dered By: Stanley Forman on 06-20-2022 MCHC (RBC) [Mass/Vol] 32.5 g/dL 32.0-35.[address] [facility] MCV Auto (RBC) [Entitic vol] Ordered By: Stanley Forman on 06-20-2022 MCV (RBC) [Entitic vol] 95.6 fL 80-100 [facility] Monocytes Auto (Bld) [#/Vol] Ordered By: Stanley Forman on 06-20-2022 Monocytes (Bld) [#/Vol] 0.5 10*3/uL 0.0-0.8 [facility] Monocytes/100 WBC Auto (Bld) Ordered By: Stanley Forman on 06-20-2022 Monocytes/100 WBC (Bld) 4.1 % . [facility] Neutrophils Auto (Bld) [#/Vo l]Ordered By: Stanley Forman on 06-20-2022 Neutrophils (Bld) [#/Vol] 9.4 10*3/uL 1.8-7.7 [facility] Neutrophils/100 WBC Auto (Bl d)Ordered By: Stanley Forman on 06-20-2022 Neutrophils/100 WBC (Bld) 79.7 % . [facility] No Panel InformationOrdered By: Stanley Forman on 06-20-2022 Estimated GFR () 13 mL/Min [facility] Comment on above: GFR estimated refere nce range: According to KDOQI guidelines, <60 ml/min/1.73m2 is sufficient to diagnose a patient with chronic kidney disease. Pharmacy Creatinine Clearance (Chem 16.48 [facility] Platelet mean volume Auto (B ld) [Entitic vol]Ordered By: Stanley Forman on 06-20-2022 Platelet mean volume (Bld) [Entitic vol] 7.0 fL 6.3-10.7 [facility] Platelets Auto (Bld) [#/Vol] Ordered By: Stanley Forman on 06-20-2022 Platelets (Bld) [#/Vol] 287 10*3/uL 150-450 [facility] Protein [Mass/volume] in Ser um or PlasmaOrdered By: Stanley Forman on 06-20-2022 Protein [Mass/Vol] 7.4 g/dL 6.1-7.9 [facility] RBC Auto (Bld) [#/Vol]Ordere d By: Stanley Forman on 06-20-2022 RBC (Bld) [#/Vol] 3.46 10*6/uL 3.60-5.00 [facility] Serum or plasma alanine cesar otransferase measurement without P-5'-P (enzymatic activiOrdered By: Stanley Forman on 06-20-2022 ALT No additional P-5'-P [Catalytic activity/Vol] 11 U/L 10-60 [facility] [place] [facility] Serum or plasma albumin/glob ulin mass ratioOrdered By: Stanley Forman on 06-20-2022 Albumin/Globulin [Mass ratio] 1.1 {ratio} [facility] Serum or plasma alkaline gina sphatase measurement (enzymatic activity/volume)Ordered By: Stanley Forman on 06-20-2022 ALP [Catalytic activity/Vol] 82 U/L 32-92 [facility] Serum or plasma anion gap de terminationOrdered By: Stanley Forman on 06-20-2022 Anion gap [Moles/Vol] 16.2 mmol/L 6.0-15.0 [facility] Serum or plasma aspartate am inotransferase measurement (enzymatic activity/volume)Ordered By: Stanley Forman on 06-20-2022 AST [Catalytic activity/Vol] 15 U/L 10-42 [facility] Serum or plasma calcium ge urement (mass/volume)Ordered By: Stanley Forman on 06-20-2022 Calcium [Mass/Vol] 9.3 mg/dL 8.2-10.2 [facility] Serum or plasma chloride lee surement (moles/volume)Ordered By: Stanley Forman on 06-20-2022 Chloride [Moles/Vol] 103 mmol/L 95-114 [facility] Serum or plasma glucose ge urement (mass/volume)Ordered By: Stanley Forman on 06-20-2022 Glucose [Mass/Vol] 75 mg/dL 70-100 [facility] Comment on above: ADA recommended refe rence rangeRandom Glucose Reference Range is dependent on time and content of last meal. Glucose of more than 200 mg/dL in a nonstressed, ambulatory subject supports the diagnosis of Diabetes Mellitus. Serum or plasma potassium me asurement (moles/volume)Ordered By: Stanley Forman on 06-20-2022 Potassium [Moles/Vol] 4.3 mmol/L 3.5-5.1 [facility] Serum or plasma sodium measu rement (moles/volume)Ordered By: Stanley Forman on 06-20-2022 Sodium [Moles/Vol] 135 mmol/L 136-146 [facility] Serum or plasma total biliru bin measurement (mass/volume)Ordered By: Stanley Forman on 06-20-2022 Bilirubin [Mass/Vol] 0.3 mg/dL 0.3-1.2 [facility] Serum or plasma total carbon dioxide measurement (moles/volume)Ordered By: Stanley Forman on 06-20-2022 CO2 [Moles/Vol] 20.1 mmol/L 22.0-30.0 [facility] Serum or plasma urea nitroge n measurement (mass/volume)Ordered By: Stanley Forman on 06-20-2022 Urea nitrogen [Mass/Vol] 42 mg/dL 9-23 [facility] COVID-19 Positive/NegativeOr dered By: Jesus Parham on 06-14-2022 SARS-CoV-2 (COVID-19) N gene AMBERLY+probe Ql (Resp) Negative Negative [facility] Comment on above: Testing for SARS-CoV -2 by RT-PCR This test was developed and its performance characteristics determined by [employer] ([employer]) and validated at the [facility]. This test has not been [...] and its performance characteristics determined by [employer] ([employer]) and validated at the [facility] [place] [facility]. This test has not been [...] Antigen (CA) 125 10.8 U/mL Normal 0.0-38.1 [facility] Comment on above: Result Comment: [employer] Electrochemiluminescence Immunoassay (ECLIA) . Values obtained with different assay methods or kits cannot be used interchangeably. Results cannot be interpreted as absolute evidence of the presence or absence of malignant disease. Performed By: #### M G, URIC, RENAL #### [facility] [address] [place] [address] Dr. Hari Palmer CEAon 06-08-2022 CEA 0.9 ng/mL Normal 0.0-4.7 [facility] Comment on above: Result Comment: Nons mokers <3.9 Smokers <5.6 . [employer] Electrochemiluminescence Immunoassay (ECLIA) . Values obtained with different assay methods or kits cannot be used interchangeably. Results cannot be interpreted as absolute evidence of the presence or absence of malignant disease. Performed By: #### C EA. #### [facility] [address] [address] [address] Hari Palmer Basophils Auto (Bld) [#/Vol] Ordered By: Jesus Parham on 06-05-2022 Basophils (Bld) [#/Vol] 0.0 10*3/uL 0.0-0.2 [facility] Basophils/100 WBC Auto (Bld) Ordered By: Jesus Parham on 06-05-2022 Basophils/100 WBC (Bld) 0.3 % . [facility] Blood hemoglobin measurement (mass/volume)Ordered By: Jesus Parham on 06-05-2022 Hemoglobin (Bld) [Mass/Vol] 12.0 g/dL 11.8-15.4 [facility] Blood leukocytes automated c ount (number/volume)Ordered By: Jesus Parham on 06-05-2022 WBC (Bld) [#/Vol] 8.5 10*3/uL 4.5-11.0 [facility] Creatinine and Glomerular fi ltration rate.predicted panel (S/P/Bld)Ordered By: Jesus Parham on 06-05-2022 Creatinine [Mass/Vol] 3.52 mg/dL 0.44-1.03 [facility] Eosinophils Auto (Bld) [#/Vo l]Ordered By: Jesus Parham on 06-05-2022 Eosinophils (Bld) [#/Vol] 0.2 10*3/uL 0.0-0.45 [facility] Eosinophils/100 WBC Auto (Bl d)Ordered By: Jesus Parham on 06-05-2022 Eosinophils/100 WBC (Bld) 2.7 % . [facility] Erythrocyte distribution wid th Auto (RBC) [Ratio]Ordered By: Jesus Parham on 06-05-2022 Erythrocyte distribution width (RBC) [Ratio] 14.2 % 11.9-15.3 [facility] [place] [facility] Estimated glomerular filtrat ion rate (GFR) non- AmericanOrdered By: Jesus Parham on 06-05-2022 GFR/1.73 sq M.predicted among non-blacks MDRD (S/P/Bld) [Vol rate/Area] 14 mL/Min [facility] [place] [facility] Hematocrit Auto (Bld) [Volum e fraction]Ordered By: Jesus Parham on 06-05-2022 Hematocrit (Bld) [Volume fraction] 35.8 % 34.0-46.4 [facility] [place] [facility] Laboratory - Hematology and Cell countsOrdered By: Jesus Parham on 06-05-2022 Nucleated RBC/100 WBC (Bld) [Ratio] 0.1 % 0-0.5 [facility] [place] [facility] Lymphocytes Auto (Bld) [#/Vo l]Ordered By: Jesus Parham on 06-05-2022 Lymphocytes (Bld) [#/Vol] 1.6 10*3/uL 1.00-4.8 [facility] [place] [facility] Lymphocytes/100 WBC Auto (Bl d)Ordered By: Jesus Parham on 06-05-2022 Lymphocytes/100 WBC (Bld) 19.3 % . [facility] [place] [facility] MCH Auto (RBC) [Entitic mass ]Ordered By: Jesus Parham on 06-05-2022 MCH (RBC) [Entitic mass] 31.5 pg 24.7-34.3 [facility] [place] [facility] MCHC Auto (RBC) [Mass/Vol]Or dered By: Jesus Parham on 06-05-2022 MCHC (RBC) [Mass/Vol] 33.3 g/dL 32.0-35.0 [facility] MCV Auto (RBC) [Entitic vol] Ordered By: Jesus Parham on 06-05-2022 MCV (RBC) [Entitic vol] 94.4 fL 80-100 [facility] [place] [facility] Monocytes Auto (Bld) [#/Vol] Ordered By: Jesus Parham on 06-05-2022 Monocytes (Bld) [#/Vol] 0.3 10*3/uL 0.0-0.8 [facility] [place] [facility] Monocytes/100 WBC Auto (Bld) Ordered By: Jesus Parham on 06-05-2022 Monocytes/100 WBC (Bld) 3.9 % . [facility] [place] [facility] Neutrophils Auto (Bld) [#/Vo l]Ordered By: Jesus Parham on 06-05-2022 Neutrophils (Bld) [#/Vol] 6.2 10*3/uL 1.8-7.7 [facility] [place] [facility] Neutrophils/100 WBC Auto (Bl d)Ordered By: Jesus Parham on 06-05-2022 Neutrophils/100 WBC (Bld) 73.8 % . [facility] [place] [facility] No Panel InformationOrdered By: Jesus Parham on 06-05-2022 Estimated GFR () 17 mL/Min [facility] [place] [facility] Comment on above: GFR estimated refere nce range: According to KDOQI guidelines, <60 ml/min/1.73m2 is sufficient to diagnose a patient with chronic kidney disease. Pharmacy Creatinine Clearance (Chem N/A [facility] Platelet mean volume Auto (B ld) [Entitic vol]Ordered By: Jesus Parham on 06-05-2022 Platelet mean volume (Bld) [Entitic vol] 7.3 fL 6.3-10.7 [facility] [place] [facility] Platelets Auto (Bld) [#/Vol] Ordered By: Jesus Parham on 06-05-2022 Platelets (Bld) [#/Vol] 312 10*3/uL 150-450 [facility] [place] [facility] RBC Auto (Bld) [#/Vol]Ordere d By: Jesus Parham on 06-05-2022 RBC (Bld) [#/Vol] 3.80 10*6/uL 3.60-5.00 [facility] Serum or plasma anion gap de terminationOrdered By: Jesus Parham on 06-05-2022 Anion gap [Moles/Vol] 15.1 mmol/L 6.0-15.0 [facility] Serum or plasma calcium ge urement (mass/volume)Ordered By: Jesus Parham on 06-05-2022 Calcium [Mass/Vol] 9.5 mg/dL 8.2-10.2 [facility] Serum or plasma chloride lee surement (moles/volume)Ordered By: Jesus Parham on 06-05-2022 Chloride [Moles/Vol] 106 mmol/L 95-114 [facility] Serum or plasma glucose ge urement (mass/volume)Ordered By: Jesus Parham on 06-05-2022 Glucose [Mass/Vol] 91 mg/dL 70-100 [facility] Comment on above: ADA recommended refe [...] on 06-05-2022 Potassium [Moles/Vol] 4.4 mmol/L 3.5-5.1 [facility] Serum or plasma sodium measu rement (moles/volume)Ordered By: Jesus Parham on 06-05-2022 Sodium [Moles/Vol] 137 mmol/L 136-146 [facility] Serum or plasma total carbon dioxide measurement (moles/volume)Ordered By: Jesus Parham on 06-05-2022 CO2 [Moles/Vol] 20.3 mmol/L 22.0-30.0 [facility] Serum or plasma urea nitroge n measurement (mass/volume)Ordered By: Jesus Parham on 06-05-2022 Urea nitrogen [Mass/Vol] 38 mg/dL 9-23 [facility] PTH INTACTon 04-29-2022 PTH, Intact 191 pg/mL Critically high 15-65 [facility] Comment on above: Performed By: #### M G, URIC, RENAL #### [facility] [address] [address] [address] Hari Palmer VIT D 25-OH LABCORPon 2021 Vitamin D, 25-Hydroxy 33.6 ng/mL Normal 30.0-100.0 [facility] Comment on above: Result Comment: Ning min D deficiency has been defined by the [place] of [employer] and an Endocrine Society practice guideline as a level of serum 25-OH vitamin D less than 20 ng/mL (1,2). The Endocrine Society went on to further define vitamin D insufficiency as a level between 21 and 29 ng/mL (2). 1. IOM ([place] of [employer]). 2010. Dietary reference intakes for calcium and D. [place]: The National Academies Press. 2. Chantel MF, Landen BURGOS, Eliseo STEPHENS, et al. Evaluation, treatment, and prevention of vitamin D deficiency: an Endocrine Society clinical practice guideline. JCEM. 2010; 96(7):1911-30. Performed By: #### M G, URIC, RENAL #### [facility] [address] [place] [address] Dr. Hari Palmer ABO AND RH TYPEon 04-27-2022 ABO and Rh group Nom (Bld) ABO Rh Typing O Rh Positive Normal [facility] Comment on above: Performed By: #### M G URIC, RENAL #### [facility] [address] [place] [address] Dr. Hari Palmer FERRITINon 04-27-2022 Ferritin [Mass/Vol] 273.0 ng/mL Critically high 6.2-137.0 [facility] Comment on above: Performed By: #### M G URIC, RENAL #### [facility] [address] [address] [address] Hari Palmer HEMOGRAM AND PLATELon 2021 Hematocrit (Bld) [Volume fraction] 33.9 % Critically low 36.0-48.0 [facility] Comment on above: Performed By: #### M G, URIC, RENAL #### [facility] [address] [address] [address] Hari Palmer Hemoglobin (Bld) [Mass/Vol] 11.4 g/dL Critically low 12.0-16.0 [facility] Comment on above: Performed By: #### M G, URIC, RENAL #### [facility] [address] [place] [address] Dr. Hari Palmer MCH (RBC) [Entitic mass] 31.7 pg Normal 26.7-34.0 [facility] Comment on above: Performed By: #### M G, URIC, RENAL #### [facility] [address] [address] [address] Hari Palmer MCHC (RBC) [Mass/Vol] 33.6 g/dL Normal 29.9-35.2 [facility] Comment on above: Performed By: #### M G, URIC, RENAL #### [facility] [address] [address] [address] Hari Palmer MCV (RBC) [Entitic vol] 94.2 fL Normal 81.0-99.0 [facility] Comment on above: Performed By: #### M G, URIC, RENAL #### [facility] [address] [address] [address] Hari Palmer PLT 333 103/ul Normal 150-450 [facility] Comment on above: Performed By: #### M G, URIC, RENAL #### [facility] [address] [place] [address] Dr. Hari Palmer RBC 3.60 106/ul Critically low 4.20-5.40 [facility] Comment on above: Performed By: #### M G, URIC, RENAL #### [facility] [address] [place] [address] Dr. Hari Palmer WBC 9.7 103/ul Normal 4.0-11.0 [facility] Comment on above: Performed By: #### M G, URIC, RENAL #### [facility] [address] [place] [address] Dr. Hari Palmer IRON AND TIBCon 04-27-2022 % SATURATION 20.1 % Normal [facility] Comment on above: Performed By: #### M G, URIC, RENAL #### [facility] [address] [place] [address] Dr. Hari Palmer Iron [Mass/Vol] 57.0 ug/dL Normal 50.0-170.0 [facility] Comment on above: Performed By: #### M G, URIC, RENAL #### [facility] [address] [place] [address] Dr. Hari Palmer TIBC DIRECT 283.0 ug/dL Normal 250.0-450.0 [facility] Comment on above: Performed By: #### M G, URIC, RENAL #### [facility] [address] [place] [address] Dr. Hari Palmer MAGNESIUMon 04-27-2022 Magnesium [Mass/Vol] 2.1 mg/dL Normal 1.8-2.4 [facility] Comment on above: Performed By: #### R ENAL, URIC, MG #### [facility] [address] [place] [address] Dr. Hari Palmer RENAL FUNCTION PANELon 04-27 Albumin [Mass/Vol] 3.6 g/dL Normal 3.4-5.0 [facility] Comment on above: Performed By: #### R ENAL, URIC, MG #### [facility] [address] [place] [address] Dr. Hari Palmer Calcium [Mass/Vol] 9.0 mg/dL Normal 8.5-10.1 [facility] Comment on above: Performed By: #### R ENAL, URIC, MG #### [facility] [address] [place] [address] Dr. Hari Palmer Chloride [Moles/Vol] 104 mmol/L Normal 98-107 [facility] Comment on above: Performed By: #### R ENAL, URIC, MG #### [facility] [address] [place] [address] Dr. Hari Palmer CO2 [Moles/Vol] 23.0 mmol/L Normal 21.0-32.0 [facility] Comment on above: Performed By: #### R ENAL, URIC, MG #### [facility] [address] [place] [address] Dr. Hari Palmer Creatinine [Mass/Vol] 3.38 mg/dL Critically high 0.55-1.02 [facility] Comment on above: Performed By: #### R ENAL, URIC, MG #### [facility] [address] [place] [address] Dr. Hari Palmer EGFR-AF PAP[place] 18 mL/min/1.73m2 Critically low >=60 [facility] Comment on above: Performed By: #### R ENAL, URIC, MG #### [facility] [address] [address] [address] Hari Palmer EGFR-NON AF P[place] 15 mL/min/1.73m2 Critically low >=60 [facility] Comment on above: Performed By: #### R ENAL, URIC, MG #### [facility] [address] [address] [address] Hari Palmer Glucose [Mass/Vol] 113 mg/dL Critically high 74-106 [facility] Comment on above: Performed By: #### R ENAL, URIC, MG #### [facility] [address] [address] [address] Hari Palmer Phosphate [Mass/Vol] 4.4 mg/dL Normal 2.6-4.7 [facility] Comment on above: Performed By: #### R ENAL, URIC, MG #### [facility] [address] [place] [address] Dr. Hari Palmer Potassium [Moles/Vol] 4.0 mmol/L Normal 3.5-5.1 [facility] Comment on above: Performed By: #### R ENAL, URIC, MG #### [facility] [address] [address] [address] Hari Palmer Sodium [Moles/Vol] 137 mmol/L Normal 136-145 [facility] Comment on above: Performed By: #### R ENAL, URIC, MG #### [facility] [address] [place] [address] Dr. Hari Palmer Urea nitrogen [Mass/Vol] 44.0 mg/dL Critically high 7.0-18.0 [facility] Comment on above: Performed By: #### R ENAL, URIC, MG #### [facility] [address] [place] [address] Dr. Hari Palmer URIC ACID SERUMon 04-27-2022 Urate [Mass/Vol] 6.6 mg/dL Critically high 2.6-6.0 [facility] Comment on above: Performed By: #### R ENAL, URIC, MG #### [facility] [address] [place] [address] Dr. Hari Palmer URINE T PROTEIN CREAT RATIOo n 04-27-2022 Protein (U) [Mass/Vol] 31.4 mg/dL Critically high <=12.0 [facility] Comment on above: Performed By: #### M G, URIC, RENAL #### [facility] [address] [place], [place] [address] Dr. Hari Palmer UR PROT CREAT RAT 0.55 Normal [facility] Comment on above: Performed By: #### M G, URIC, RENAL #### [facility] [address] [place], [place] [address] Dr. Hari Palmer URINE CREAT 57.50 mg/dL Normal 20.00-300.00 [facility] Comment on above: Performed By: #### M G, URIC, RENAL #### [facility] [address] [place], [place] [address] Dr. Hari Palmer ECHOCARDIO M/2D COMPLETEon 0 03-29-2022 ECHOCARDIO M/2D COMPLETE Patient: MANDEEP PURI Exam Date: 03/29/2022 : 1975 Gender:F Ordering : HAIDER FRENCH M.D. Admission #: [id number] Family : Order #: [id number] CLICK HERE TO VIEW EXAM ECHOCARDIOGRAM REPORT [...] Area(A4C): 17.00 cm2 Left Atrium Systolic Volume(A2C): 03515 mm3 Left Atrium Systolic Volume(A4C): 64291 mm3 Mitral Valve MV E to A Ratio: 0.80 Deceleration [place]: 3210 mm/s2 Mitral Valve A-Wave Peak Velocity: [...] Alonzo M.D. on 04/01/2022 at 12:33 Normal [facility] COVID-19 SOFIAOrdered By: Mary Beth Jones on 03-28-2022 SARS-CoV+SARS-CoV-2 (COVID-19) Ag IA.rapid Ql (Resp) Negative Negative [facility] Comment on above: This is a duplicate Ada SARS Antigen (GLORIA) result to be used for statistical tracking purpose only. No Panel InformationOrdered By: Shabbir Jones on 03-28-2022 SARS Antigen (LFIA) [facility] BLOOD TYPE AND RHon 02-13-20 ABO INTERPRETATION O Normal [facility] Comment on above: Performed By: #### 3 1397, 25225, 44087, 27614, 66123 #### [facility] [address] RH INTERPRETATION Positive Normal [facility] Comment on above: Performed By: #### 3 1397, 15253, 87219, 76000, 68743 #### [facility] [address] [facility] BNP (B-TYPE NATRIURETIC PEPT JOEL)on 02-12-2022 Natriuretic peptide B (Bld) [Mass/Vol] 10 pg/mL Normal 0-100 [facility] Comment on above: Result Comment: Give n the appropriate clinical setting a BNP result of >100 pg/mL indicates congestive heart failure. Performed By: #### 8 6393, 40529 #### [facility] [address] CBC W/DIFFon 02-12-2022 ABS IMM GRANS 0.2 10*3/uL Normal 0.0-0.2 [facility] Comment on above: Performed By: #### 3 1397, 61315, 30893, 79020, 54314 #### [facility] [address] ABS NEUTROPHILS 7.8 10*3/uL High 1.6-7.6 [facility] Comment on above: Performed By: #### 3 1397, 88096, 61083, 48624, 50364 #### [facility] [address] [place] [address], [facility] Basophils (Bld) [#/Vol] 0.1 10*3/uL Normal 0.0-0.2 [facility] Comment on above: Performed By: #### 3 1397, 91658, 46305, 78386, 82580 #### [facility] [address] [place] [address], [place] Basophils/100 WBC (Bld) 0.6 % Normal 0.0-1.0 [facility] Comment on above: Performed By: #### 3 1397, 82824, 88894, 48127, 77740 #### [facility] [address] [place] [address], [facility] Eosinophils (Bld) [#/Vol] 0.3 10*3/uL Normal 0.0-0.5 [facility] Comment on above: Performed By: #### 3 1397, 89550, 38201, 09250, 99265 #### [facility] [address] [place] [address], [facility] Eosinophils/100 WBC (Bld) 2.5 % Normal 0.0-6.0 [facility] Comment on above: Performed By: #### 3 1397, 51979, 19965, 98014, 11362 #### [facility] [address] [place] [id number], [facility] Erythrocyte distribution width (RBC) [Ratio] 13.6 % Normal 11.5-15.0 [facility] Comment on above: Performed By: #### 3 1397, 35840, 71004, 62137, 45644 #### [facility] [address] [place] [id number], [facility] Hematocrit (Bld) [Volume fraction] 34.5 % Low 36.0-45.0 [facility] Comment on above: Performed By: #### 3 1397, 69311, 53912, 60483, 16616 #### [facility] [address] Hemoglobin (Bld) [Mass/Vol] 11.3 g/dL Low 12.0-15.0 [facility] Comment on above: Performed By: #### 3 1397, 14349, 99236, 61494, 15312 #### [facility] [address] [place] [address], [facility] IMMATURE GRANS 1.4 % High 0.0-1.0 [facility] Comment on above: Performed By: #### 3 1397, 92907, 40022, 00518, 58490 #### [facility] [address] [place] [address], [facility] Lymphocytes (Bld) [#/Vol] 2.0 10*3/uL Normal 1.2-4.0 [facility] Comment on above: Performed By: #### 3 1397, 02171, 61144, 48322, 55182 #### [facility] [address] [facility] [place] [address], [facility] Lymphocytes/100 WBC (Bld) 18.6 % Low 20.0-45.0 [facility] Comment on above: Performed By: #### 3 1397, 58481, 31610, 10228, 34897 #### [facility] [address] [facility] [place] [address], [facility] MCH (RBC) [Entitic mass] 31.3 pg Normal 27.0-33.0 [facility] Comment on above: Performed By: #### 3 1397, 07658, 38840, 05358, 94759 #### [facility] [address] [facility] [place] [address], [facility] MCHC (RBC) [Mass/Vol] 32.8 g/dL Normal 32.0-35.0 [facility] Comment on above: Performed By: #### 3 1397, 35292, 54643, 45694, 64993 #### [facility] [address] MCV (RBC) [Entitic vol] 95.6 fL Normal 82.0-98.0 [facility] Comment on above: Performed By: #### 3 1397, 85855, 73048, 39094, 48596 #### [facility] [address] [facility] [place] [address], [facility] Monocytes (Bld) [#/Vol] 0.5 10*3/uL Normal 0.1-1.0 [facility] Comment on above: Performed By: #### 3 1397, 48951, 51938, 79417, 19312 #### [facility] [address] MONOS 4.9 % Low 5.0-12.0 [facility] Comment on above: Performed By: #### 3 1397, 78090, 48696, 40941, 22508 #### [facility] [address] [facility] [address] Neutrophils/100 WBC (Bld) 72.0 % Normal 40.0-72.0 [facility] Comment on above: Performed By: #### 3 1397, 30902, 00768, 74358, 11107 #### [facility] [address] [facility] [address], [facility] Nucleated RBC/100 WBC (Bld) [Ratio] 0 % Normal 0-0 [facility] Comment on above: Performed By: #### 3 1397, 82635, 82969, 60670, 70565 #### [facility] [address] [facility] [place] [address], [facility] PLAT CNT 315 10*3/uL Normal 150-400 [facility] Comment on above: Performed By: #### 3 1397, 46093, 51741, 26573, 93529 #### [facility] [address] [facility] [place] [address], [facility] RBC (Bld) [#/Vol] 3.61 10*6/uL Low 3.80-5.00 [facility] Comment on above: Performed By: #### 3 1397, 25899, 92667, 31932, 85311 #### [facility] [address] [facility]. [address] WBC (Bld) [#/Vol] 10.78 10*3/uL High 4.00-10.60 [facility] Comment on above: Performed By: #### 3 1397, 49768, 79086, 52854, 81500 #### [facility] [address] [facility] [place] [address], [facility] CHEST AND LATERALon 02-13-20 CHEST AND LATERAL [facility] Department of Radiology [address] [place] [id number] Patient Name: MANDEEP PURI : 1975 [...] of acute cardiopulmonary pathology. Electronically signed: Royal Domignuez. Transcribed by: [email or web address], User Resident: Electronically Signed by: ROYAL DOMINGUEZ @ 02/13/2022 11:48 AM Normal [facility] CMV IGG BLOODon 02-12-2022 CMV IGG 3.13 Normal [facility] Comment on above: Result Comment: NORM AL RANGES: < OR = 0.9O NEGATIVE ; NO DETECTABLE IgG ANTIBODY TO CMV 0.91 - 1.09 EQUIVOCAL; REPEAT TESTING SUGGESTED > OR = 1.10 POSITIVE ; INDICATES PRESENCE OF DETECTABLE IgG ANTIBODY TO CMV Performed By: #### 3 1397, 04313, 13839, 55640, 84887 #### [facility] [address] [place] [address], [facility] COMP METABOLIC PANELon 02-12 Albumin [Mass/Vol] 4.5 g/dL Normal 3.5-5.7 [facility] Comment on above: Performed By: #### 2 2505, 40681, 65609 #### [facility] [address] [place] [address], [facility] ALKALINE PHOSPH 89 IU/L Normal 34-104 [facility] Comment on above: Performed By: #### 2 2505, 88536, 69771 #### [facility] [address] [place] [address], [facility] ALT [Catalytic activity/Vol] 12 U/L Normal 7-52 [facility] Comment on above: Performed By: #### 2 2505, 24600, 64072 #### [facility] [address] [place] [address], [facility] AST [Catalytic activity/Vol] 13 U/L Normal 13-39 [facility] Comment on above: Performed By: #### 2 2505, 38263, 62605 #### [facility] [address] [place] [address], [place] Bilirubin [Mass/Vol] 0.3 mg/dL Normal 0.3-1.0 [facility] Comment on above: Performed By: #### 2 2505, 44682, 22612 #### [facility] [address] [place] [address], [place] Calcium [Mass/Vol] 9.5 mg/dL Normal 8.6-10.3 [facility] Comment on above: Performed By: #### 2 2505, , 94102 #### [facility] [address] [place] [address], [place] Chloride [Moles/Vol] 103 mmol/L Normal 98-107 [facility] Comment on above: Performed By: #### 2 2505, 17152, 12304 #### [facility] [address] [place] [address], [place] CO2 [Moles/Vol] 22 mmol/L Normal 21-31 [facility] Comment on above: Performed By: #### 2 2505, 33457, 52174 #### [facility] [address] [place] [address], [place] Creatinine [Mass/Vol] 3.51 mg/dL High 0.60-1.20 [facility] Comment on above: Performed By: #### 2 2505, 94093, 50369 #### [facility] [address] [place] [address], [place] eGFR- 17 ml/min/1.73sq m Abnormal >60 [facility] Comment on above: Performed By: #### 2 2505, 69754, 64736 #### [facility] [address] [place] [address], [facility] eGFR- non- 14 ml/min/1.73sq m Abnormal >60 [facility] Comment on above: Performed By: #### 2 2505, 87080, 27455 #### [facility] [address] [place] [address], [place] Glucose [Mass/Vol] 100 mg/dL Normal 70-100 [facility] Comment on above: Performed By: #### 2 2505, 15767, 90503 #### [facility] [address] [place] [address], [place] Potassium [Moles/Vol] 3.9 mmol/L Normal 3.5-5.1 [facility] Comment on above: Performed By: #### 2 2505, 39075, 40028 #### [facility] [address] [place] [address], [place] Protein [Mass/Vol] 8.0 g/dL Normal 6.0-8.3 [facility] Comment on above: Performed By: #### 2 2505, 20415, 23536 #### [facility] [address] [place] [address], [place] Sodium [Moles/Vol] 136 mmol/L Normal 136-145 [facility] Comment on above: Performed By: #### 2 2505, 91608, 19158 #### [facility] [address] [place] [address], [place] Urea nitrogen [Mass/Vol] 41 mg/dL High 7-25 [facility] Comment on above: Performed By: #### 2 2505, 54838, 62344 #### [facility] [address] [place] [address], [place] CREATININE URINE RANDOMon Creatinine (U) [Mass/Vol] 63.0 mg/dL Normal [facility] Comment on above: Result Comment: Ther e are no established reference values for random urine specimens Performed By: #### 3 1397, 69970, 63539, 81849, 15461 #### [place] [address], [facility] CT RENAL RECIPIENT ABDOMEN A ND PEVLIS WO CONTRASTon 02-12-2022 CT RENAL RECIPIENT ABDOMEN AND PEVLIS WO CONTRAST [facility] [facility] [address] [place] [id number] Patient Name: MANDEEP PURI : 1975 [...] achievable. Electronically signed: NAN SARAVIA. Transcribed by: [email or web address], User Resident: Electronically Signed by: NAN SARAVIA @ 02/12/2022 02:59 PM Normal [facility] Comment on above: Order Comment: [...] Bilirubin.direct [Mass/Vol] 0.0 mg/dL Normal 0.0-0.2 [facility] Comment on above: Performed By: #### 2 2505, 87756, 34905 #### [facility] [address] [place] [address], [facility] BRETT LAGUERRE VIRUS ABon 02-03 EB VCA IGG 2.35 Normal [facility] Comment on above: Order Comment: CONSI STENT WITH PAST EBV INFECTION Result Comment: NORM AL RANGES: < OR = 0.9O NEGATIVE ; NO DETECTABLE IgG ANTIBODY TO EBV-VCA 0.91 - 1.09 EQUIVOCAL; REPEAT TESTING SUGGESTED > OR = 1.10 POSITIVE ; INDICATES PRESENCE OF DETECTABLE IgG ANTIBODY TO EBV Performed By: #### 3 1397, 66078, 80451, 61956, 98033 #### [facility] [address] [place] [address], [facility] EB VCA IGM 0.00 Normal [facility] Comment on above: Order Comment: CONSI STENT WITH PAST EBV INFECTION Result Comment: NORM AL RANGES: < OR = 0.9O NEGATIVE ; NO SIGNIFICANT LEVEL OF DETECTABLE EBV-VCA IgM AB 0.91 - 1.09 EQUIVOCAL; REPEAT TESTING SUGGESTED > OR = 1.10 POSITIVE ; SIGNIFICANT LEVEL OF DETECTABLE EBV-VCA IgM AB Performed By: #### 3 1397, 71409, 88426, 43312, 63622 #### [facility] [address] [place] [address], [facility] HEMOGLOBIN A1Con 02-12-2022 Glucose [Moles/Vol] 120 mmol/L Normal [facility] Comment on above: Performed By: #### 8 4553, 69161 #### [facility] [address] HbA1c (Bld) [Mass fraction] 5.8 % Normal 4.0-6.0 [facility] Comment on above: Performed By: #### 8 5123, 27225 #### [facility] [address] HEPATITIS A ANTIBODY IGMon 0 02-12-2022 HEP A AB IGM Non-Reactive Normal NONREACTIVE [facility] Comment on above: Performed By: #### 3 1397, 08217, 81041, 89959, 39573 #### [facility] [address] HEPATITIS B CORE ANTIBODYon 02-12-2022 HEP B CORE AB Non-Reactive Normal NONREACTIVE [facility] Comment on above: Performed By: #### 3 1397, 71309, 00407, 38265, 60690 #### [facility] [address] HEPATITIS B SURFACE ANTIBODY QUANTon 02-12-2022 HEP B SURF AB 1.14 mIU/ml Normal [facility] Comment on above: Result Comment: INTE RPRETATION: NONREACTIVE<8.00 mIU/mL INDETERMINATE8.00 - 12.00 mIU/mL REACTIVE>12 mIU/mL Performed By: #### 3 1397, 34637, 37390, 54564, 55689 #### [facility] [address] HEPATITIS B SURFACE ANTIGEN QUALon 02-12-2022 HEP B SURF AG QUAL Non-Reactive Normal NONREACTIVE [facility] Comment on above: Performed By: #### 3 1397, 05303, 95276, 92228, 15564 #### [facility] [address] HEPATITIS C ANTIBODYon 02-12 ANTI-HCV Non-Reactive Normal NONREACTIVE [facility] Comment on above: Performed By: #### 3 1397, 05617, 67919, 71108, 71432 #### [facility] [address] [place] [address], [facility] HIV1 AND 2 COMBO 4Gon 2021 HIV COMBO Negative Normal NEGATIVE [facility] Comment on above: Performed By: #### 3 1397, 79674, 15587, 53726, 42359 #### [facility] [address] [place] [address], [facility] HLA ABC CLASS I TYPINGon A*-1 EQUIVALENT 1 Normal [facility] Comment on above: Order Comment: [...] to frequency. Performed By: #### 3 1397, 15784, 67906, 42045, 64663 #### [facility] [address] [facility] [place] [address], [facility] A*-2 EQUIVALENT 2 Normal [facility] Comment on above: Order Comment: [...] to frequency. Performed By: #### 3 1397, 59448, 87408, 58048, 08468 #### [facility] [address] [place] [address], [facility] B*-1 EQUIVALENT 35 Normal [facility] Comment on above: Order Comment: [...] to frequency. Performed By: #### 3 1397, 13259, 97948, 96165, 12161 #### [facility] [address] [place] [address], [facility] B*-2 EQUIVALENT 37 Normal [facility] Comment on above: Order Comment: [...] to frequency. Performed By: #### 3 1397, 29557, 81568, 78847, 17170 #### [facility] [address] [place] [address], [facility] Bw*-1 EQUIVALENT 4 Normal [facility] Comment on above: Order Comment: [...] to frequency. Performed By: #### 3 1397, 45039, 19592, 17899, 61172 #### [facility] [address] [place] [address], [place] Bw*-2 EQUIVALENT 6 Normal [facility] Comment on above: Order Comment: [...] to frequency. Performed By: #### 3 1397, 54102, 93705, 24343, 34777 #### [facility] [address] [facility] [place] [address], [facility] C*-1 EQUIVALENT 4 Normal [facility] Comment on above: Order Comment: [...] to frequency. Performed By: #### 3 1397, 33520, 01649, 60393, 93427 #### [facility] [address] [place] [address], [facility] C*-2 EQUIVALENT 6 Normal [facility] Comment on above: Order Comment: [...] to frequency. Performed By: #### 3 1397, 89876, 59482, 13803, 56846 #### [facility] [address] [place] [address], [facility] METHOD Class I Typing by PCR-SSOP Luminex Normal [facility] Comment on above: Order Comment: [...] to frequency. Performed By: #### 3 1397, 30172, 36256, 20322, 82762 #### [facility] [address] [facility] [address] SIGNED BY Normal [facility] Comment on above: Order Comment: [...] to frequency. Result Comment: Sree Noriega, MS,CHT(DONA),MT(ASCP) Accounts Receivable Clerk, Transplant Immunology Performed By: #### 3 1397, 56735, 07900, 02646, 85736 #### [facility] [address] [facility] CLASS II TYPINGon DPB1*-1 EQUIVALENT 04:01 Normal [facility] Comment on above: Order Comment: [...] to frequency. Performed By: #### 3 1397, 43196, 93162, 15653, 01234 #### [facility] [address] [place] [address], [facility] DPB1*-2 EQUIVALENT 04:02 Normal [facility] Comment on above: Order Comment: [...] to frequency. Performed By: #### 3 1397, 93502, 93421, 96393, 38437 #### [facility] [address] [place] [address], [place] DQA1*-1 EQUIVALENT 01 Normal [facility] Comment on above: Order Comment: [...] to frequency. Performed By: #### 3 1397, 46131, 91143, 72137, 75149 #### [facility] [address] [place] [address], [place] DQA1*-2 EQUIVALENT 05 Normal [facility] Comment on above: Order Comment: [...] to frequency. Performed By: #### 3 1397, 01433, 83853, 93209, 79979 #### [facility] [address] [place] [address], [place] DQB1*-1 EQUIVALENT 7 Normal [facility] Comment on above: Order Comment: [...] to frequency. Performed By: #### 3 1397, 22876, 62135, 59893, 05886 #### [facility] [address] [place] [address], [facility] DQB1*-2 EQUIVALENT 5 Normal [facility] Comment on above: Order Comment: [...] to frequency. Performed By: #### 3 1397, 67050, 55447, 16860, 81374 #### [facility] [address] [place] [address], [facility] DRB1*-1 EQUIVALENT 10 Normal [facility] Comment on above: Order Comment: [...] to frequency. Performed By: #### 3 1397, 29761, 02604, 91896, 35753 #### [facility] [address] [place] [address], [place] DRB1*-2 EQUIVALENT 11 Normal [facility] Comment on above: Order Comment: [...] to frequency. Performed By: #### 3 1397, 90125, 77712, 64385, 22807 #### [facility] [address] [facility]. [address] DRB3*-1 EQUIVALENT 52 Normal [facility] Comment on above: Order Comment: [...] to frequency. Performed By: #### 3 1397, 42344, 73649, 10015, 43449 #### [facility] [address] [facility]. [address] METHOD Class II Typing by PCR-SSOP Luminex Normal [facility] Comment on above: Order Comment: [...] to frequency. Performed By: #### 3 1397, 27740, 66999, 71273, 14543 #### [facility] [address] [place] [address], [facility] LIPID PROFILEon 02-12-2022 Cholesterol [Mass/Vol] 221 mg/dL High 120-200 Th e [facility] Comment on above: Result Comment: CHOL ESTEROL REFERENCE RANGE: 20 YEARS AND OLDER CARDIOVASCULAR RISK Less than 200 mg/dl Low Risk 200 to 239 mg/dl Borderline Risk 240 mg/dl and greater High Risk Performed By: #### 3 1397, 54143, 21301, 12413, 27029 #### [facility] [address] [place] [address], [place] Cholesterol in HDL [Mass/Vol] 40 mg/dL Normal 23-92 [facility] Comment on above: Result Comment: Slig ht variation in normal range could be due to gender and/or age. HDL CHOLESTEROL REFERENCE RANGE: 20 years and older Cardiovascular Risk > or =60 mg/dL Desirable 40 TO 59 mg/dL Low Risk <40 mg/dL High Risk Performed By: #### 3 1397, 18924, 98645, 90060, 65173 #### [facility] [address] [place] [address], [place] Cholesterol in LDL [Mass/Vol] 101 mg/dL Normal 0-130 [facility] Comment on above: Result Comment: LDL IS A CALCULATION LDL IS ONLY VALID IF THE TRIG IS LESS THAN 400. Performed By: #### 3 1397, 89192, 73159, 12621, 37976 #### [facility] [address] [place] [address], [place] Cholesterol.total/Chol esterol in HDL [Mass ratio] 5.5 {ratio} High .0-4.5 [facility] Comment on above: Performed By: #### 3 1397, 11778, 01577, 06897, 84053 #### [facility] [address] [place] [address], [place] NON-HDL CHOLESTEROL 181 mg/dL Normal [facility] Comment on above: Performed By: #### 3 1397, 68339, 46632, 26716, 00022 #### [facility] [address] [place] [address], [place] Triglyceride [Mass/Vol] 402 mg/dL High 40-149 [facility] Comment on above: Result Comment: TRIG LYCERIDE REFERENCE RANGE: 20 YEARS AND OLDER CARDIOVASCULAR RISK LESS THAN 150 mg/dl LOW RISK 150 TO 199 mg/dl BORDERLINE RISK 200 mg/dl AND GREATER HIGH RISK Performed By: #### 3 1397, 46084, 06632, 13942, 98926 #### [facility] [address] [place] [address], [facility] VLDL CHOL 80 mg/dL High 0-40 [facility] Comment on above: Performed By: #### 3 1397, 86030, 71551, 22603, 11393 #### [facility] [address] [place] [address], [facility] MUMPS IGG BLDon 02-12-2022 MUMPS IGG 5.46 Normal [facility] Comment on above: Result Comment: NORM AL RANGES: < OR = 0.9O NEGATIVE ; NO DETECTABLE IgG ANTIBODY TO MUMPS 0.91 - 1.09 EQUIVOCAL; REPEAT TESTING SUGGESTED > OR = 1.10 POSITIVE ; INDICATES PRESENCE OF DETECTABLE IgG ANTIBODY TO MUMPS Performed By: #### 3 1397, 40771, 34216, 57827, 67814 #### [facility] [address] [place] [address], [facility] RUBELLAon 02-12-2022 RUBELLA 4.79 Normal [facility] Comment on above: Result Comment: NORM AL RANGES: < OR = 0.9O NEGATIVE ; NO DETECTABLE IgG ANTIBODY TO RUBELLA 0.91 - 1.09 EQUIVOCAL; REPEAT TESTING SUGGESTED > OR = 1.10 POSITIVE ; INDICATES PRESENCE OF DETECTABLE IgG ANTIBODY TO RUBELLA VIRUS Performed By: #### 3 1397, 45706, 13516, 57780, 55045 #### [facility] [address] [place] [address], [facility] RUBEOLA MEASLES IGGon 2021 RUBEO IGG 6.43 Normal [facility] Comment on above: Result Comment: NORM AL RANGES: < OR = 0.9O NEGATIVE ; NO DETECTABLE IgG ANTIBODY TO RUBEOLA 0.91 - 1.09 EQUIVOCAL; REPEAT TESTING SUGGESTED > OR = 1.10 POSITIVE ; INDICATES PRESENCE OF DETECTABLE IgG ANTIBODY TO RUBEOLA Performed By: #### 3 1397, 46297, 74000, 85689, 90429 #### [facility] [address] SINGLE ANTIGEN CLASS 1on METHOD Class I Single Antigen Normal Th e [facility] Comment on above: Order Comment: [...] to frequency. Performed By: #### 3 1397, 14332, 73776, 69009, 41085 #### [facility] [address] SINGLE ANTIGEN CLASS 2on COMMENTS Normal [facility] Comment on above: Order Comment: [...] watch list. Performed By: #### 3 1397, 12951, 03615, 98703, 88971 #### [facility] [address] Result Comment: Clas s I Antigen Microbeads Potential specificites added to the watch list. CPRA 0 Normal [facility] Comment on above: Order Comment: [...] to frequency. Performed By: #### 3 1397, 76803, 77004, 51617, 58156 #### [facility] [address] METHOD Class II Single Antigen Normal T he [facility] Comment on above: Order Comment: [...] to frequency. Performed By: #### 3 1397, 55837, 99245, 98024, 98887 #### [facility] [address] [place] [address], [facility] T PROT UR Yesy 02-12-2022 U TOTAL PROTEIN 44.0 mg/dL Normal [facility] Comment on above: Result Comment: Ther e are no established reference values for random urine specimens Performed By: #### 3 1397, 51340, 19663, 87080, 38527 #### [facility] [address] [facility] [place] [address], [facility] TB QUANTIFERON PLUSon 2021 MITOGEN MINUS NIL >10.00 Normal [facility] Comment on above: Performed By: #### 3 1592 #### [facility] [address] [place] [address], [facility] NIL 0.03 IU/mL Normal [facility] Comment on above: Performed By: #### 3 1592 #### [facility] [address] [place] [address], [facility] TB QUANTIFERON Negative Normal NEGATIVE [facility] Comment on above: Result Comment: Jadiel tiferon TB Gold Interpretation (IU/mL): NEGATIVE: M. tuberculosis infection not likely. Nil: <=8.0 TB1 Antigen minus Nil ([id number]): <0.35 OR >=0.35; and <25% of Nil value. TB2 Antigen minus Nil ([id number]): <0.35 OR >=0.35; and <25% of Nil [...] (https://www.cdc.gov/tb/publications/guidlines/default.htm Performed By: #### 3 1592 #### [facility] [address] [place] [address], [facility] TB1 AG 0.05 IU/mL Normal [facility] Comment on above: Performed By: #### 3 1592 #### [facility] [address] [place] [address], [facility] TB1 AG MINUS NIL 0.02 IU/mL Normal [facility] Comment on above: Performed By: #### 3 1592 #### [facility] [address] [facility] [place] [address], [facility] TB2 AG 0.05 IU/mL Normal [facility] Comment on above: Performed By: #### 3 1592 #### [facility] [address] [facility] [place] [address], [place] TB2 AG MINUS NIL 0.02 IU/mL Normal [facility] Comment on above: Performed By: #### 3 1592 #### [facility] [address] [place] [address], [place] UA,MICROSCOPIC REQUIREDon Appearance (U) SL CLOUDY Abnormal CLEAR [facility] Comment on above: Performed By: #### 3 1397, 94177, 51477, 58521, 24400 #### [facility] [address] [place] [address], [facility] Bilirubin Ql (U) Negative Normal NEGATIVE [facility] Comment on above: Performed By: #### 3 1397, 50015, 04062, 26836, 51197 #### [facility] [address] [place] [address], [facility] Color (U) STRAW Abnormal YELLOW [facility] Comment on above: Performed By: #### 3 1397, 18333, 97730, 21985, 17351 #### [facility] [address] [place] [address], [place] EPIS MANY Abnormal FEW,OCC,NONE SEEN [facility] Comment on above: Performed By: #### 3 1397, 08466, 24304, 70596, 53856 #### [facility] [address] [place] [address], [place] Glucose Ql (U) 50 mg/dL Abnormal NEGATIVE [facility] Comment on above: Performed By: #### 3 1397, 51823, 30196, 77201, 79931 #### [facility] [address] [place] [address], [place] Hemoglobin Ql (U) Negative Normal NEGATIVE [facility] Comment on above: Performed By: #### 3 1397, 59132, 52498, 51412, 62988 #### [facility] [address] [place] [address], [place] KETONE Negative Normal NEGATIVE [facility] Comment on above: Performed By: #### 3 1397, 47237, 28373, 55399, 50838 #### [facility] [address] [place] [address], [place] LEUK MARYAN MODERATE Abnormal NEGATIVE [facility] Comment on above: Performed By: #### 3 1397, 32052, 42793, 40182, 69211 #### [facility] [address] [facility] Nitrite Ql (U) Negative Normal NEGATIVE [facility] Comment on above: Performed By: #### 3 1397, 20515, 02181, 00218, 68286 #### [facility] [address] [facility] pH (U) 7.0 [pH] Normal 5.0-8.0 [facility] Comment on above: Performed By: #### 3 1397, 39496, 53116, 87891, 47691 #### [facility] [address] [facility] Protein Ql (U) 30 mg/dL Abnormal NEGATIVE [facility] Comment on above: Performed By: #### 3 1397, 95918, 20347, 45873, 45067 #### [facility] [address] [facility] RBC NONE SEEN Normal NONE SEEN [facility] Comment on above: Performed By: #### 3 1397, 04288, 22602, 34549, 70250 #### [facility] [address] [facility] SPEC GRAV 1.009 Low 1.015-1.020 [facility] Comment on above: Performed By: #### 3 1397, 47018, 62306, 92139, 43851 #### [facility] [address] [facility] WBC UA 11-20 Abnormal NONE SEEN [facility] Comment on above: Performed By: #### 3 1397, 24374, 42156, 48334, 08752 #### [facility] [address] [facility] VARICELLA ZOSTER IGGon 02-12 VARICELLA IGG 3.29 Normal [facility] Comment on above: Result Comment: NORM AL RANGES: < OR = 0.9O NEGATIVE ; NO DETECTABLE IgG ANTIBODY TO VARICELLA-ZOSTER VIRUS 0.91 - 1.09 EQUIVOCAL; REPEAT TESTING SUGGESTED > OR = 1.10 POSITIVE ; INDICATES PRESENCE OF DETECTABLE IgG ANTIBODY TO VARICELLA-ZOSTER VIRUS Performed By: #### 3 1397, 63144, 19188, 67279, 49813 #### [facility] [address] [place] [address], [facility] PTH INTACTon 12-04-2021 PTH, Intact 165 pg/mL Critically high 15-65 [facility] Comment on above: Performed By: #### M Edy URIC, RENAL #### [facility] [address] [place] [address] Dr. Hari Palmer FERRITINon 12-03-2021 Ferritin [Mass/Vol] 256.0 ng/mL Critically high 6.2-137.0 [facility] Comment on above: Performed By: #### M Edy URIC, RENAL #### [facility] [address] [place] [address] Dr. Hari Palmer HEMOGRAM AND PLATELon 2021 Hematocrit (Bld) [Volume fraction] 33.7 % Critically low 36.0-48.0 [facility] Comment on above: Performed By: #### M Edy URIC, RENAL #### [facility] [address] [place] [address] Dr. Hari Palmer Hemoglobin (Bld) [Mass/Vol] 10.9 g/dL Critically low 12.0-16.0 [facility] Comment on above: Performed By: #### M Edy URIC, RENAL #### [facility] [address] [place] [address] Dr. Hari Palmer MCH (RBC) [Entitic mass] 31.4 pg Normal 26.7-34.0 [facility] Comment on above: Performed By: #### M Edy URIC, RENAL #### [facility] [address] [place] [address] Dr. Hari Palmer MCHC (RBC) [Mass/Vol] 32.3 g/dL Normal 29.9-35.2 [facility] Comment on above: Performed By: #### M G, URIC, RENAL #### [facility] [address] [address] [address] Hari Palmer MCV (RBC) [Entitic vol] 97.1 fL Normal 81.0-99.0 [facility] Comment on above: Performed By: #### M G, URIC, RENAL #### [facility] [address] [address] [address] Hari Palmer PLT 314 103/ul Normal 150-450 [facility] Comment on above: Performed By: #### M G, URIC, RENAL #### [facility] [address] [address] [address] Hari Palmer RBC 3.47 106/ul Critically low 4.20-5.40 [facility] Comment on above: Performed By: #### M G, URIC, RENAL #### [facility] [address] [place] [address] Dr. Hari Palmer WBC 9.4 103/ul Normal 4.0-11.0 [facility] Comment on above: Performed By: #### M G, URIC, RENAL #### [facility] [address] [address] [address] Hari Palmer IRON AND TIBCon 12-03-2021 % SATURATION 19.0 % Normal [facility] Comment on above: Performed By: #### M G, URIC, RENAL #### [facility] [address] [address] [address] Hari Palmer Iron [Mass/Vol] 52.0 ug/dL Normal 37.0-170.0 [facility] Comment on above: Performed By: #### M G, URIC, RENAL #### [facility] [address] [address] [address] Hari Palmer TIBC DIRECT 273.0 ug/dL Normal 261.0-497.0 [facility] Comment on above: Performed By: #### M G, URIC, RENAL #### [facility] [address] [address] [address] Hari Palmer MAGNESIUMon 12-03-2021 Magnesium [Mass/Vol] 2.1 mg/dL Normal 1.6-2.3 [facility] Comment on above: Performed By: #### M G, URIC, RENAL #### [facility] [address] [place] [address] Dr. Hari Palmer RENAL FUNCTION PANELon 12-03 Albumin [Mass/Vol] 3.6 g/dL Normal 3.5-5.0 [facility] Comment on above: Performed By: #### M G, URIC, RENAL #### [facility] [address] [place] [address] Dr. Hari Palmer Calcium [Mass/Vol] 8.4 mg/dL Normal 8.4-10.2 [facility] Comment on above: Performed By: #### M Edy, URIC, RENAL #### [facility] [address] [place] [address] Dr. Hari Palmer Chloride [Moles/Vol] 101 mmol/L Normal 98-107 [facility] Comment on above: Performed By: #### M G, URIC, RENAL #### [facility] [address] [place] [address] Dr. Hari Palmer CO2 [Moles/Vol] 24.3 mmol/L Normal 22.0-30.0 [facility] Comment on above: Performed By: #### M G, URIC, RENAL #### [facility] [address] [place] [address] Dr. Hari Palmer Creatinine [Mass/Vol] 3.32 mg/dL Critically high 0.52-1.04 [facility] Comment on above: Performed By: #### M G, URIC, RENAL #### [facility] [address] [place] [address] Dr. Hari Palmer EGFR-AF [place] 18 mL/min/1.73m2 Critically low >=60 [facility] Comment on above: Performed By: #### M G, URIC, RENAL #### [facility] [address] [place] [address] Dr. Hari Palmer EGFR-NON AF PAPUA NEW GUINEAN 15 mL/min/1.73m2 Critically low >=60 [facility] Comment on above: Performed By: #### M G, URIC, RENAL #### [facility] [address] [address] [address] Hari Palmer Glucose [Mass/Vol] 119 mg/dL Critically high 74-106 [facility] Comment on above: Performed By: #### M G, URIC, RENAL #### [facility] [address] [address] [address] Hari Palmer Phosphate [Mass/Vol] 4.7 mg/dL Critically high 2.5-4.5 [facility] Comment on above: Performed By: #### M G, URIC, RENAL #### [facility] [address] [address] [address] Hari Palmer Potassium [Moles/Vol] 4.0 mmol/L Normal 3.4-5.0 [facility] Comment on above: Performed By: #### M G, URIC, RENAL #### [facility] [address] [address] [address] Hari Palmer Sodium [Moles/Vol] 135 mmol/L Critically low 137-145 Th [facility] Comment on above: Performed By: #### M G, URIC, RENAL #### [facility] [address] [address] [address] Hari Palmer Urea nitrogen [Mass/Vol] 42.0 mg/dL Critically high 7.0-17.0 [facility] Comment on above: Performed By: #### M G, URIC, RENAL #### [facility] [address] [address] [address] Hari Palmre UA RANDOM W/MICROSCOPICon BACTERIA TRACE Abnormal NONE SEEN [facility] Comment on above: Performed By: #### U AMIC #### [facility] [address] [address] [address] Hari Palmer Bilirubin Ql (U) Negative Normal NEGATIVE [facility] Comment on above: Performed By: #### U AMIC #### [facility] [address] [place] [address] Dr. Hari Palmer CAST NONE SEEN Normal NONE SEEN [facility] Comment on above: Performed By: #### U AMIC #### [facility] [address] [address] [address] Hari Palmer Clarity (U) CLEAR Normal CLEAR [facility] Comment on above: Performed By: #### U AMIC #### [facility] [address] [place] [address] Dr. Hari Palmer Color (U) LT. YELLOW Normal YELLOW [facility] Comment on above: Performed By: #### U AMIC #### [facility] [address] [place] [address] Dr. Hari Palmer Crystals LM Nom (Urine sed) NONE SEEN Normal NONE SEEN [facility] Comment on above: Performed By: #### U AMIC #### [facility] [address] [place] [address] Dr. Hari Palmer Epithelial cells LM Ql (Urine sed) FEW Abnormal NONE SEEN /RARE [facility] Comment on above: Performed By: #### U AMIC #### [facility] [address] [place] [address] Dr. Hari Palmer Glucose Ql (U) 100 mg/dl Abnormal NEGATIVE [facility] Comment on above: Performed By: #### U AMIC #### [facility] [address] [place] [address] Dr. Hari Palmer Hemoglobin Ql (U) TRACE-INTACT Abnormal NEGATIVE [facility] Comment on above: Performed By: #### U AMIC #### [facility] [address] [place] [address] Dr. Hari Palmer Ketones Ql (U) Negative Normal NEGATIVE [facility] Comment on above: Performed By: #### U AMIC #### [facility] [address] [place] [address] Dr. Hari Palmer LEUKOCYTES SMALL Abnormal NEGATIVE [facility] Comment on above: Performed By: #### U AMIC #### [facility] [address] [place] [address] Dr. Hari Palmer MUCOUS NONE SEEN Normal NONE SEEN [facility] Comment on above: Performed By: #### U AMIC #### [facility] [address] [place] [address] Dr. Hari Palmer Nitrite Ql (U) Negative Normal NEGATIVE [facility] Comment on above: Performed By: #### U AMIC #### [facility] [address] [address] [address] Hari Palmer pH (U) 6.0 [pH] Normal 5-9 [facility] Comment on above: Performed By: #### U AMIC #### [facility] [address] [address] [address] Hari Palmer RBC 0-2 Normal 0-2 [facility] Comment on above: Performed By: #### U AMIC #### [facility] [address] [place] [address] Dr. Hari Palmer SPEC GRAVITY 1.010 Normal 1.005-<=1.02 5 [facility] Comment on above: Performed By: #### U AMIC #### [facility] [address] [place] [address] Dr. Hari Palmer UA PROTEIN Negative Normal NEGATIVE/ TRACE [facility] Comment on above: Performed By: #### U AMIC #### [facility] [address] [place] [address] Dr. Hari Palmer Urobilinogen Qn (U) 0.2 {Janice'U}/dL Normal 0.2 - 1. 0 [facility] Comment on above: Performed By: #### U AMIC #### [facility] [address] [place] [address] Dr. Hari Palmer WBC 5-10 Abnormal NONE SEEN [facility] Comment on above: Performed By: #### U AMIC #### [facility] [address] [place] [address] Dr. Hari Palmer URIC ACID SERUMon 12-03-2021 Urate [Mass/Vol] 4.6 mg/dL Normal 2.5-6.2 [facility] Comment on above: Performed By: #### M G, URIC, RENAL #### [facility] [address] [place] [address] Dr. Hari Palmer URINE T PROTEIN CREAT RATIOo n 12-03-2021 Protein (U) [Mass/Vol] 31.7 mg/dL Critically high <=12.0 [facility] Comment on above: Performed By: #### M G, URIC, RENAL #### [facility] [address] [place] [address] Dr. Hari Palmer UR PROT CREAT RAT 0.54 Normal [facility] Comment on above: Performed By: #### M G, URIC, RENAL #### [facility] [address] [place] [address] Dr. Hari Palmer URINE CREAT 59.03 mg/dL Normal 20.00-300.00 [facility] Comment on above: Performed By: #### M G, URIC, RENAL #### [facility] [address] [place] [address] Dr. Hari Palmer VITAMIN D 25 OHon 12-03-2021 VIT D 25-OH 38.1 ng/mL Normal [facility] Comment on above: Performed By: #### M G, URIC, RENAL #### [facility] [address] [place] [address] Dr. Hari Palmer VIT D RANGES SEE BELOW Normal [facility] Comment on above: Result Comment: <20 ng/mL Vit D deficient 20 - <30 ng/mL Vit D insufficient 30 - 100 ng/mL Vit D sufficient >100 ng/mL Potential Toxicity Performed By: #### M G, URIC, RENAL #### [facility] [address] [place] [address] Dr. Hari Palmer PTH INTACTon 09-03-2021 PTH, Intact 177 pg/mL Critically high 15-65 [facility] Comment on above: Performed By: #### P THINT #### [facility] [address] [place] [address] Dr. Hari Palmer CBC AUTO DIFFon 09-01-2021 BASO # 0.1 103/ul Normal 0.0-0.1 [facility] Comment on above: Performed By: #### M G, URIC, RENAL #### [facility] [address] [place] [address] Dr. Hari Palmer Basophils/100 WBC (Bld) 0.6 % Normal 0.2-2.0 [facility] Comment on above: Performed By: #### M G, URIC, RENAL #### [facility] [address] [place] [address] Dr. Hari Palmer EO # 0.3 103/ul Normal 0.0-0.7 [facility] Comment on above: Performed By: #### M G, URIC, RENAL #### [facility] [address] [place] [address] Dr. Hari Palmer Eosinophils/100 WBC (Bld) 3.5 % Normal 0.9-7.0 [facility] Comment on above: Performed By: #### M G, URIC, RENAL #### [facility] [address] [place] [address] Dr. Hari Palmer Erythrocyte distribution width (RBC) [Ratio] 13.8 % Normal 11.0-15.0 [facility] Comment on above: Performed By: #### M G, URIC, RENAL #### [facility] [address] [place] [address] Dr. Hari Palmer Hematocrit (Bld) [Volume fraction] 32.8 % Critically low 36.0-48.0 [facility] Comment on above: Performed By: #### M G, URIC, RENAL #### [facility] [address] [place] [address] Dr. Hari Palmer Hemoglobin (Bld) [Mass/Vol] 10.6 g/dL Critically low 12.0-16.0 [facility] Comment on above: Performed By: #### M G, URIC, RENAL #### [facility] [address] [place] [address] Dr. Hari Palmer IG # 0.14 10e3/ul Critically high 0.00-0.03 [facility] Comment on above: Performed By: #### M G, URIC, RENAL #### [facility] [address] [place] [address] Dr. Hari Palmer IG % 1.5 % Critically high 0.0-0.5 [facility] Comment on above: Performed By: #### M G, URIC, RENAL #### [facility] [address] [place] [address] Dr. Hari Palmer LYMPH # 1.8 103/ul Normal 1.2-3.8 [facility] Comment on above: Performed By: #### M G, URIC, RENAL #### [facility] [address] [place] [address] Dr. Hari Palmer Lymphocytes/100 WBC (Bld) 19.3 % Critically low 20.5-60.0 [facility] Comment on above: Performed By: #### M G, URIC, RENAL #### [facility] [address] [place] [address] Dr. Hari Palmer MANUAL DIFF REQ NO Normal [facility] Comment on above: Performed By: #### M G, URIC, RENAL #### [facility] [address] [place] [address] Dr. Hari Palmer MCH (RBC) [Entitic mass] 31.4 pg Normal 26.7-34.0 [facility] Comment on above: Performed By: #### M G, URIC, RENAL #### [facility] [address] [place] [address] Dr. Hari Palmer MCHC (RBC) [Mass/Vol] 32.3 g/dL Normal 29.9-35.2 [facility] Comment on above: Performed By: #### M G, URIC, RENAL #### [facility] [address] [place] [address] Dr. Hari Palmer MCV (RBC) [Entitic vol] 97.0 fL Normal 81.0-99.0 [facility] Comment on above: Performed By: #### M G, URIC, RENAL #### [facility] [address] [place] [address] Dr. Hari Palmer MONO # 0.4 103/ul Normal 0.3-0.8 [facility] Comment on above: Performed By: #### M G, URIC, RENAL #### [facility] [address] [place] [address] Dr. Hari Palmer Monocytes/100 WBC (Bld) 4.2 % Normal 1.7-12.0 [facility] Comment on above: Performed By: #### M G, URIC, RENAL #### [facility] [address] [address] [address] Hari Palmer NEUT # 6.5 103/ul Normal 1.4-6.5 [facility] Comment on above: Performed By: #### M G, URIC, RENAL #### [facility] [address] [address] [address] Hari Palmer Neutrophils/100 WBC (Bld) 70.9 % Normal 43.0-75.0 [facility] Comment on above: Performed By: #### M G, URIC, RENAL #### [facility] [address] [address] [address] Hari Palmer Platelet mean volume (Bld) [Entitic vol] 9.0 fL Critically low 9.5-13.5 [facility] Comment on above: Performed By: #### M G, URIC, RENAL #### [facility] [address] [address] [address] Hari Palmer PLT 289 103/ul Normal 150-450 [facility] Comment on above: Performed By: #### M G, URIC, RENAL #### [facility] [address] [address] [address] Hari Palmer RBC 3.38 106/ul Critically low 4.20-5.40 [facility] Comment on above: Performed By: #### M G, URIC, RENAL #### [facility] [address] [address] [address] Hari Palmer WBC 9.1 103/ul Normal 4.0-11.0 [facility] Comment on above: Performed By: #### M G, URIC, RENAL #### [facility] [address] [address] [address] Hari Palmer FERRITINon 09-01-2021 Ferritin [Mass/Vol] 204.0 ng/mL Critically high 6.2-137.0 [facility] Comment on above: Performed By: #### M G, URIC, RENAL #### [facility] [address] [address] [address] Hari Palmer IRON AND TIBCon 09-01-2021 % SATURATION 28.4 % Normal [facility] Comment on above: Performed By: #### M G, URIC, RENAL #### [facility] [address] [place] [address] Dr. Hari Palmer Iron [Mass/Vol] 80.0 ug/dL Normal 37.0-170.0 [facility] Comment on above: Performed By: #### M G, URIC, RENAL #### [facility] [address] [place] [address] Dr. Hari Palmer TIBC DIRECT 282.0 ug/dL Normal 261.0-497.0 [facility] Comment on above: Performed By: #### M G, URIC, RENAL #### [facility] [address] [place] [address] Dr. Hari Palmer MAGNESIUMon 09-01-2021 Magnesium [Mass/Vol] 2.2 mg/dL Normal 1.6-2.3 [facility] Comment on above: Performed By: #### U AMIC #### [facility] [address] [place] [address] Dr. Hari Palmer RENAL FUNCTION PANELon 09-01 Albumin [Mass/Vol] 3.5 g/dL Normal 3.5-5.0 [facility] Comment on above: Performed By: #### M G, URIC, RENAL #### [facility] [address] [place] [address] Dr. Hari Palmer Calcium [Mass/Vol] 8.7 mg/dL Normal 8.4-10.2 [facility] Comment on above: Performed By: #### M G, URIC, RENAL #### [facility] [address] [place] [address] Dr. Hari Palmer Chloride [Moles/Vol] 105 mmol/L Normal 98-107 [facility] Comment on above: Performed By: #### M G, URIC, RENAL #### [facility] [address] [place] [address] Dr. Hari Palmer CO2 [Moles/Vol] 21.1 mmol/L Critically low 22.0-30.0 [facility] Comment on above: Performed By: #### M G, URIC, RENAL #### [facility] [address] [address] [address] Hari Palmer Creatinine [Mass/Vol] 3.63 mg/dL Critically high 0.52-1.04 [facility] Comment on above: Performed By: #### M G, URIC, RENAL #### [facility] [address] [address] [address] Hari Palmer EGFR-AF PAPUA NEW GUINEAN 16 mL/min/1.73m2 Critically low >=60 [facility] Comment on above: Performed By: #### M G, URIC, RENAL #### [facility] [address] [place] [address] Dr. Hari Palmer EGFR-NON AF PAPUA NEW GUINEAN 14 mL/min/1.73m2 Critically low >=60 [facility] Comment on above: Performed By: #### M G, URIC, RENAL #### [facility] [address] [place] [address] Dr. Hari Palmer Glucose [Mass/Vol] 115 mg/dL Critically high 74-106 [facility] Comment on above: Performed By: #### M G, URIC, RENAL #### [facility] [address] [place] [address] Dr. Hari Palmer Phosphate [Mass/Vol] 4.6 mg/dL Critically high 2.5-4.5 [facility] Comment on above: Performed By: #### M G, URIC, RENAL #### [facility] [address] [place] [address] Dr. Hari Palmer Potassium [Moles/Vol] 4.2 mmol/L Normal 3.4-5.0 [facility] Comment on above: Performed By: #### M G, URIC, RENAL #### [facility] [address] [place] [address] Dr. Hari Palmer Sodium [Moles/Vol] 138 mmol/L Normal 137-145 [facility] Comment on above: Performed By: #### M G, URIC, RENAL #### [facility] [address] [place] [address] Dr. Hari Palmer Urea nitrogen [Mass/Vol] 50.0 mg/dL Critically high 7.0-17.0 [facility] Comment on above: Performed By: #### M G, URIC, RENAL #### [facility] [address] [place] [address] Dr. Hari Palmer UA RANDOM W/MICROSCOPICon BACTERIA SMALL Abnormal NONE SEEN [facility] Comment on above: Performed By: #### U AMIC #### [facility] [address] [place] [address] Dr. Hari Palmer Bilirubin Ql (U) Negative Normal NEGATIVE [facility] Comment on above: Performed By: #### U AMIC #### [facility] [address] [place] [address] Dr. Hari Palmer CAST NONE SEEN Normal NONE SEEN [facility] Comment on above: Performed By: #### U AMIC #### [facility] [address] [place] [address] Dr. Hari Palmer Clarity (U) CLEAR Normal CLEAR [facility] Comment on above: Performed By: #### U AMIC #### [facility] [address] [place] [address] Dr. Hari Palmer Color (U) LT. YELLOW Normal YELLOW [facility] Comment on above: Performed By: #### U AMIC #### [facility] [address] [place] [address] Dr. Hari Palmer Crystals LM Nom (Urine sed) NONE SEEN Normal NONE SEEN [facility] Comment on above: Performed By: #### U AMIC #### [facility] [address] [place] [address] Dr. Hari Palmer Epithelial cells LM Ql (Urine sed) MODERATE Abnormal NONE SEEN /RARE [facility] Comment on above: Performed By: #### U AMIC #### [facility] [address] [place] [address] Dr. Hari Palmer Glucose Ql (U) Negative Normal NEGATIVE [facility] Comment on above: Performed By: #### U AMIC #### [facility] [address] [place] [address] Dr. Hari Palmer Hemoglobin Ql (U) TRACE-INTACT Abnormal NEGATIVE [facility] Comment on above: Performed By: #### U AMIC #### [facility] [address] [address] [address] Hari Palmer Ketones Ql (U) Negative Normal NEGATIVE [facility] Comment on above: Performed By: #### U AMIC #### [facility] [address] [place] [address] Dr. Hari Palmer LEUKOCYTES Negative Normal NEGATIVE [facility] Comment on above: Performed By: #### U AMIC #### [facility] [address] [place] [address] Dr. Hari Palmer MUCOUS NONE SEEN Normal NONE SEEN [facility] Comment on above: Performed By: #### U AMIC #### [facility] [address] [place] [address] Dr. Hari Palmer Nitrite Ql (U) Negative Normal NEGATIVE [facility] Comment on above: Performed By: #### U AMIC #### [facility] [address] [place] [address] Dr. Hari Palmer pH (U) 6.0 [pH] Normal 5-9 [facility] Comment on above: Performed By: #### U AMIC #### [facility] [address] [place] [address] Dr. Hari Palmer RBC 2-5 Abnormal 0-2 [facility] Comment on above: Performed By: #### U AMIC #### [facility] [address] [place] [address] Dr. Hari Pamler SPEC GRAVITY 1.010 Normal 1.005-<=1.02 5 [facility] Comment on above: Performed By: #### U AMIC #### [facility] [address] [place] [address] Dr. Hari Palmer UA PROTEIN Negative Normal NEGATIVE/ TRACE [facility] Comment on above: Performed By: #### U AMIC #### [facility] [address] [place] [address] Dr. Hari Palmer Urobilinogen Qn (U) 0.2 {Janice'U}/dL Normal 0.2 - 1. 0 [facility] Comment on above: Performed By: #### U AMIC #### [facility] [address] [address] [address] Hari Palmer WBC 2-5 Abnormal NONE SEEN [facility] Comment on above: Performed By: #### U AMIC #### [facility] [address] [address] [address] Hari Palmer URIC ACID SERUMon 09-01-2021 Urate [Mass/Vol] 4.9 mg/dL Normal 2.5-6.2 [facility] Comment on above: Performed By: #### U AMIC #### [facility] [address] [address] [address] Hari Palmer URINE T PROTEIN CREAT RATIOo n 09-01-2021 Protein (U) [Mass/Vol] 22.2 mg/dL Critically high <=12.0 [facility] Comment on above: Performed By: #### M G, URIC, RENAL #### [facility] [address] [place] [address] Dr. Hari Palmer UR PROT CREAT RAT 0.47 Normal [facility] Comment on above: Performed By: #### M G, URIC, RENAL #### [facility] [address] [place] [address] Dr. Hari Palmer URINE CREAT 46.89 mg/dL Normal 20.00-300.00 [facility] Comment on above: Performed By: #### M G, URIC, RENAL #### [facility] [address] [place] [address] Dr. Hari Palmer VITAMIN D 25 OHon 09-01-2021 VIT D 25-OH 40.5 ng/mL Normal [facility] Comment on above: Performed By: #### M G, URIC, RENAL #### [facility] [address] [place] [address] Dr. Hari Palmer VIT D RANGES SEE BELOW Normal [facility] Comment on above: Result Comment: <20 ng/mL Vit D deficient 20 - <30 ng/mL Vit D insufficient 30 - 100 ng/mL Vit D sufficient >100 ng/mL Potential Toxicity Performed By: #### M G, URIC, RENAL #### [facility] [address] [address] [address] Hari Nolasco 03-30-2021 CNOV Office Visit (NEPHMN ) ----- MANDEEP PURI ([id number]) 1975 F Date Time Provider Department 03/30/21 9:20 AM PERRI BARRETT NEPHMN During your visit today, we recorded the following information about you: Temperature Pulse Blood pressure Weight 98.2 degrees 75/minute 122/77 93 kg Height 1.549 m Perri Barrett MD 03/30/2021 10:25 AM Signed Mrs. 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 Decaf TEA: occas SODA:occas ALCOHOL:no TOBACCO USE: [...] (rapamycin) 4 weeks Referring Provider: YANETH MUÑOZ [[id number]] Allergies As of Date: 03/30/2021 Noted Allergy [...] by mouth. (more content not included)... Normal [facility] Urinalysison 03-30-2021 Bilirubin, Urine Negative Normal Negative [facility] Comment on above: Performed By: #### U A #### [facility] [address] [place], [place] [address] Clarity (U) Clear Normal Clear [facility] Comment on above: Performed By: #### U A #### [facility] [address] [place], [place] [address] Color (U) Colorless Critically abnormal Yellow [facility] Comment on above: Performed By: #### U A #### [facility] [address] [address] Comments SEE COMMENT Normal [facility] Comment on above: Result Comment: Micr oscopic not warranted Performed By: #### U A #### [facility] [address] [address] Glucose Ql (U) Trace Critically abnormal Negative [facility] Comment on above: Performed By: #### U A #### [address] [place] [address] Hemoglobin/Blood,Ur Negative Normal Negative [facility] Comment on above: Performed By: #### U A #### [address] [place] [id number] Ketones Ql (U) Negative Normal Negative [facility] Comment on above: Performed By: #### U A #### [address] [place] [address] Leukest Negative Normal Negative [facility] Comment on above: Performed By: #### U A #### [facility] [address] [place], [place] [address] Nitrite Ql (U) Negative Normal Negative [facility] Comment on above: Performed By: #### U A #### [address] [place] [id number] pH (U) 6.5 [pH] Normal 5.0-8.0 [facility] Comment on above: Performed By: #### U A #### [facility] [address] [address] Protein, Urine Negative Normal Negative [facility] Comment on above: Performed By: #### U A #### [facility] [address] [id number] Specific [place], Ur 1.008 Normal 1.005-1.030 [facility] Comment on above: Performed By: #### U A #### [place] [address] Urine Codi Comment SEE COMMENT Normal [facility] Comment on above: Result Comment: N/A Performed By: #### U A #### [place] [address] Urobilinogen (U) [Mass/Vol] Negative Normal Negative [facility] Comment on above: Performed By: #### U A #### [place] [address] Coding Summary.on 04-21-2020 Coding Summary. CODING DATE: [facility] STATUS: Home (Routine DC) PAYOR: Medical Mccoy ADMIT DX: REASON FOR VISIT DX: Z20.828 [...] CphT Date Saved: 04/21/2020 05:17 pm Normal [facility] Physician Orderon 04-21-2020 Physician Order [id number] Normal [facility] Marci 04-12-2020 ALT [Catalytic activity/Vol] 14 U/L Normal 7 - 45 [facility] Comment on above: Result Comment: Kelsea ents treated with Sulfasalazine may generate falsely decreased results for ALT. Performed By: #### A LT #### [facility] [address] [place] [address] Ronald 04-12-2020 AST [Catalytic activity/Vol] 16 U/L Normal 9 - 39 [facility] Comment on above: Performed By: #### A ST #### [facility] [address] [place] [address] CREATININEon 04-12-2020 Creatinine [Mass/Vol] 2.83 mg/dL High 0.50 - 1.05 [facility] Comment on above: Performed By: #### C REAT #### [facility] [address] [place] [address] Creatinine [Mass/Vol] 18 mL/min/1.73m2 Abnormal >60 [facility] Comment on above: Performed By: #### C REAT #### [facility] [address] [place] [address] Creatinine [Mass/Vol] 22 mL/min/1.73m2 Abnormal >60 [facility] Comment on above: Result Comment: CALC ULATIONS OF ESTIMATED GFR ARE PERFORMED USING THE MDRD STUDY EQUATION FOR THE IDMS-TRACEABLE CREATININE METHODS. CLIN CHEM 2007;53:766-72 Performed By: #### C REAT #### [facility] [address] [place] [address] URIC ACIDon 04-12-2020 Urate [Mass/Vol] 5.2 mg/dL Normal 2.3 - 6.7 [facility] Comment on above: Result Comment: Beti puncture immediately after or during the administration of Metamizole may lead to falsely low results. Testing should be performed immediately prior to Metamizole dosing. Performed By: #### U DICK #### [facility] [address] [place] [address] URIC ACIDon 02-11-2020 Urate [Mass/Vol] 8.2 mg/dL High 2.3 - 6.7 [facility] Comment on above: Result Comment: Beti puncture immediately after or during the administration of Metamizole may lead to falsely low results. Testing should be performed immediately prior to Metamizole dosing. Performed By: #### U DICK #### [facility] [address] [place] [address] Cult,Urineon 08-04-2019 Cult,Urine Specimen Description .CLEAN CATCH URINE Special Requests NOT REPORTED Culture ESCHERICHIA COLI >[id number] CFU/ML Report Status FINAL 08/04/2019 SUSCEPTIBILITY Organism [...] Trimethoprim/Sulfa <=20 SUSCEPTIBLE Piperacillin/Tazobactam <=4 SUSCEPTIBLE Normal [facility] Comment on above: Performed By: #### D CITLALY, LIP, CMPX, TROPI, BNP, CDP, PT #### [facility] [address] [place] [address] Lab Pack Chemist: Sami Dominguez MD Brain Natri. Peptideon 08-02 Natriuretic peptide B (Bld) [Mass/Vol] 152 pg/mL Normal <300 [facility] Comment on above: Result Comment: Pro- BNP results cannot be compared to BNP results. Performed By: #### D CITLALY, LIP, CMPX, TROPI, BNP, CDP, PT #### [facility] [address] [place] [place] [address] Lab Pack Chemist: Sami Dominguez MD Natriuretic peptide B (Bld) [Mass/Vol] Pro-BNP Reference Range: Normal [facility] Comment on above: Result Comment: Rule Out: <300 Parra Zone: Age <50 300-450 Age 50-75 300-900 Age >75 300-1800 Usually represents mild to moderate HF but other cardiopulmonary causes cannot be ruled out. Rule In: Age <50 >450 Age 50-75 >900 Age >75 >1800 Performed By: #### D CITLALY, LIP, CMPX, TROPI, BNP, CDP, PT #### [facility] [address] [place] [place] [address] Lab Pack Chemist: Sami Dominguez MD Brain Natriuretic Peptideon 08-02-2019 Natriuretic peptide B (Bld) [Mass/Vol] 152 pg/mL <300 [place] Comment on above: Pro-BNP results eric ot be compared to BNP results. Natriuretic peptide B (Bld) [Mass/Vol] Pro-BNP Reference Range: [place] Comment on above: Rule Out: <300 Parra Zone: Age <50 300-450 Age 50-75 300-900 Age >75 300-1800 Usually represents mild to moderate HF but other cardiopulmonary causes cannot be ruled out. Rule In: Age <50 >450 Age 50-75 >900 Age >75 >1800 CBC Auto Differentialon 07-07 Basophils (Bld) [#/Vol] 0.00 10*3/uL [place] Basophils/100 WBC (Bld) 0 % 0 - 2 % [place] Differential Type NOT REPORTED [place] Eosinophils (Bld) [#/Vol] 0.08 10*3/uL [place] Eosinophils/100 WBC (Bld) 1 % 1 - 4 % [place] Erythrocyte distribution width (RBC) [Ratio] 13.2 % 11.8 - 14.4 % [place] Hematocrit (Bld) [Volume fraction] 33.7 % Low 36.3 - 47.1 % [place] Hemoglobin (Bld) [Mass/Vol] 10.7 g/dL Low 11.9 - 15.1 g/dL [place] Immature granulocytes (Bld) [#/Vol] 0 % 0 [place] Immature granulocytes (Bld) [#/Vol] 0.00 10*3/uL [place] Interpretation and review of laboratory results Abnormal [place] Lymphocytes (Bld) [#/Vol] 0.90 10*3/uL Low [place] Lymphocytes/100 WBC (Bld) 12 % Low 24 - 43 % [place] MCH (RBC) [Entitic mass] 30.2 pg 25.2 - 33.5 pg [place] MCHC (RBC) [Mass/Vol] 31.8 g/dL 28.4 - 34.8 g/dL [place] MCV (RBC) [Entitic vol] 95.2 fL 82.6 - 102.9 fL [place] Monocytes (Bld) [#/Vol] 0.00 10*3/uL Low [place] Monocytes/100 WBC (Bld) 0 % Low 3 - 12 % [place] Morphology Geovany (Bld) [Interp] Normal [place] Platelet mean volume (Bld) [Entitic vol] 8.6 fL 8.1 - 13.5 fL [place] Platelets (Bld) [#/Vol] NOT REPORTED [place] Platelets (Bld) [#/Vol] 335 10*3/uL [place] RBC (Bld) [#/Vol] 3.54 10*6/uL Low 3.95 - 5.1 1 m/uL [place] RBC morphology finding Nom (Bld) NOT REPORTED [place] Segmented neutrophils/100 WBC (Bld) 87 % High 36 - 65 % [place] Segs Absolute 6.52 [place] WBC (Bld) [#/Vol] 7.5 10*3/uL [place] WBC (Bld) [#/Vol] 0.0 10*3/uL 0.0 per 10 0 WBC [place] WBC Morphology NOT REPORTED [place] CBC with Diffon 08-02-2019 Abs. Basophil 0.00 k/uL Normal 0.0-0.2 [facility] Comment on above: Performed By: #### D CITLALY, LIP, CMPX, TROPI, BNP, CDP, PT #### [facility] [address] [place] [address] Lab Pack Chemist: Sami Dominguez MD Abs.Imm.Granulocyte 0.00 k/uL Normal 0.00-0.30 [facility] Comment on above: Performed By: #### D CITLALY, LIP, CMPX, TROPI, BNP, CDP, PT #### [facility] [address] [place] [place] [address] Lab Pack Chemist: Sami Dominguez MD Abs.Neutrophil (Seg) 6.52 k/uL Normal 1.50-8.[address] [facility] Comment on above: Performed By: #### D CITLALY, LIP, CMPX, TROPI, BNP, CDP, PT #### [address] [place] [id number] Lab Pack Chemist: Sami Dominguez MD Basophils/100 WBC (Bld) 0 % Normal 0-2 [facility] Comment on above: Performed By: #### D CITLALY, LIP, CMPX, TROPI, BNP, CDP, PT #### [address] [place], [facility] Lab Pack Chemist: Sami Dominguez MD Eosinophils (Bld) [#/Vol] 0.08 10*3/uL Normal 0.00-0.44 [facility] Comment on above: Performed By: #### D CITLALY, LIP, CMPX, TROPI, BNP, CDP, PT #### [address] [place], [place] [address] Lab Pack Chemist: Sami Dominguez MD Eosinophils/100 WBC (Bld) 1 % Normal 1-4 [facility] Comment on above: Performed By: #### D CITLALY, LIP, CMPX, TROPI, BNP, CDP, PT #### [address] [place] [address] Lab Pack Chemist: Sami Dominguez MD Immature granulocytes (Bld) [#/Vol] 0 % Normal 0 [facility] Comment on above: Performed By: #### D CITLALY, LIP, CMPX, TROPI, BNP, CDP, PT #### [facility] [address] [place], [facility] Lab Pack Chemist: Sami Dominguez MD Lymphocytes (Bld) [#/Vol] 0.90 10*3/uL Low 1.10-3.70 [facility] Comment on above: Performed By: #### D CITLALY, LIP, CMPX, TROPI, BNP, CDP, PT #### [facility] [address] [place], [facility] Lab Pack Chemist: Sami Dominguez MD Lymphocytes/100 WBC (Bld) 12 % Low 24-43 [facility] Comment on above: Performed By: #### D CITLALY, LIP, CMPX, TROPI, BNP, CDP, PT #### [facility] [address] [place], [place] [address] Lab Pack Chemist: Sami Dominguez MD Monocytes (Bld) [#/Vol] 0.00 10*3/uL Low 0.10-1.20 [facility] Comment on above: Performed By: #### D CITLALY, LIP, CMPX, TROPI, BNP, CDP, PT #### [facility] [address] [place], [facility] Lab Pack Chemist: Sami Dominguez MD Monocytes/100 WBC (Bld) 0 % Low 3-12 [facility] Comment on above: Performed By: #### D CITLALY, LIP, CMPX, TROPI, BNP, CDP, PT #### [facility] [address] [place], [facility] Lab Pack Chemist: Sami Dominguez MD Morphology Geovany (Bld) [Interp] Normal Normal [facility] Comment on above: Performed By: #### D CITLALY, LIP, CMPX, TROPI, BNP, CDP, PT #### [facility] [address] [place], [facility] Lab Pack Chemist: Sami Dominguez MD Neutrophil (Seg) 87 % High 36-65 [facility] Comment on above: Performed By: #### D CITLALY, LIP, CMPX, TROPI, BNP, CDP, PT #### [facility] [address] [place], [facility] Lab Pack Chemist: Sami Dominguez MD Erythrocyte distribution width (RBC) [Ratio] 13.2 % Normal 11.8-14.4 [facility] Comment on above: Performed By: #### D CITLALY, LIP, CMPX, TROPI, BNP, CDP, PT #### [facility] [address] [place], [facility] Lab Pack Chemist: Sami Dominguez MD Hematocrit (Bld) [Volume fraction] 33.7 % Low 36.3-47.1 [facility] Comment on above: Performed By: #### D CITLALY, LIP, CMPX, TROPI, BNP, CDP, PT #### [facility] [address] [place], [facility] Lab Pack Chemist: Sami Dominguez MD Hemoglobin (Bld) [Mass/Vol] 10.7 g/dL Low 11.9-15.1 [facility] Comment on above: Performed By: #### D CITLALY, LIP, CMPX, TROPI, BNP, CDP, PT #### [address] [place], [facility] Lab Pack Chemist: Sami Dominguez MD MCH (RBC) [Entitic mass] 30.2 pg Normal 25.2-33.5 [facility] Comment on above: Performed By: #### D CITLALY, LIP, CMPX, TROPI, BNP, CDP, PT #### [facility] [address] [place] [address] Lab Pack Chemist: Sami Dominguez MD MCHC (RBC) [Mass/Vol] 31.8 g/dL Normal 28.4-34.8 [facility] Comment on above: Performed By: #### D CITLALY, LIP, CMPX, TROPI, BNP, CDP, PT #### [facility] [address] [place], [place] [id number] Lab Pack Chemist: Saim Dominguez MD MCV (RBC) [Entitic vol] 95.2 fL Normal 82.6-102.9 [facility] Comment on above: Performed By: #### D CITLALY, LIP, CMPX, TROPI, BNP, CDP, PT #### [facility] [address] [place], [facility] Lab Pack Chemist: Sami Dominguez MD NRBC Automated 0.0 per 100 WBC Normal 0.0 [facility] Comment on above: Performed By: #### D CITLALY, LIP, CMPX, TROPI, BNP, CDP, PT #### [facility] [address] [place], [place] [id number] Lab Pack Chemist: Sami Dominguez MD Platelet mean volume (Bld) [Entitic vol] 8.6 fL Normal 8.1-13.5 [facility] Comment on above: Performed By: #### D CITLALY, LIP, CMPX, TROPI, BNP, CDP, PT #### [facility] [address] [place], [facility] Lab Pack Chemist: Sami Dominguez MD Platelets (Bld) [#/Vol] 335 10*3/uL Normal 138-453 [facility] Comment on above: Performed By: #### D CITLALY, LIP, CMPX, TROPI, BNP, CDP, PT #### [facility] [address] [place], [place] [address] Lab Pack Chemist: Sami Dominguez MD RBC (Bld) [#/Vol] 3.54 10*6/uL Low 3.95-5.11 [facility] Comment on above: Performed By: #### D CITLALY, LIP, CMPX, TROPI, BNP, CDP, PT #### [facility] [address] [place] [address] Lab Pack Chemist: Sami Dominguez MD WBC (Bld) [#/Vol] 7.5 10*3/uL Normal 3.5-11.3 [facility] Comment on above: Performed By: #### D CITLALY, LIP, CMPX, TROPI, BNP, CDP, PT #### [facility] [address] [place], [place] [id number] Lab Pack Chemist: Sami Dominguez MD Auto Diff Performed NOT REPORTED Normal [facility] Comment on above: Performed By: #### D CITLALY, LIP, CMPX, TROPI, BNP, CDP, PT #### [address] [place] [address] Lab Pack Chemist: Sami Dominguez MD Platelets (Bld) [#/Vol] NOT REPORTED Normal [facility] Comment on above: Performed By: #### D CITLALY, LIP, CMPX, TROPI, BNP, CDP, PT #### [address] [place], [place] [address] Lab Pack Chemist: Sami Dominguez MD RBC morphology finding Nom (Bld) NOT REPORTED Normal [facility] Comment on above: Performed By: #### D CITLALY, LIP, CMPX, TROPI, BNP, CDP, PT #### [address] [place], [place] [address] Lab Pack Chemist: Sami Dominguez MD WBC Morphology NOT REPORTED Normal [facility] Comment on above: Performed By: #### D CITLALY, LIP, CMPX, TROPI, BNP, CDP, PT #### [address] [place], [place] [address] Lab Pack Chemist: Sami Dominguez MD CTA CHEST ABDOMEN PELVIS W C [facility] 08-02-2019 CTA CHEST ABDOMEN PELVIS W CONTRAST [...] Yunier Yang MD 08/02/19 Final result Normal [facility], [facility] Incoming Radiant Results From [employer] - 08/02/2019 1:21 PM EDT EXAMINATION: CTA [...] recommended. Reference: J Am Danika Radiol 2013;10:675-681 [place], [place] EXAMINATION: CTA OF THE CHEST, ABDOMEN [...] and caliber without aneurysmal dilatation or dissection. [place], [place] No evidence for aneurysmal dilatation or dissection of the aorta or its branches. Findings most compatible with polycystic kidney disease. Subtle inflammation adjacent to the descending colon is suggestive of subtle colitis. No perforation or abscess formation. No free intraperitoneal air or fluid. 4.1 cm benign appearing ovarian cyst No follow-up imaging is recommended. Reference: J Am Danika Radiol 2013;10:675-681 [place], [place] Comp Metabolic Pr/rfx MGon 1 (cont.) Normal [facility] Comment on above: Result Comment: Aver age GFR for 40-49 years old: 99 mL/min/1.73sq m Chronic Kidney Disease: <60 mL/min/1.73sq m Kidney failure: <15 mL/min/1.73sq m eGFR calculated using average adult body mass. Additional eGFR calculator available at: http://www.[employer]/multiple_crcl_2012.htm Performed By: #### D CITLALY, LIP, CMPX, TROPI, BNP, CDP, PT #### [facility] [address] [place], [place] [id number] Lab Pack Chemist: Sami Dominguez MD Albumin [Mass/Vol] 4.4 g/dL Normal 3.5-5.2 [facility] Comment on above: Performed By: #### D CITLALY, LIP, CMPX, TROPI, BNP, CDP, PT #### [facility] [address] [place], [place] [address] Lab Pack Chemist: Sami Dominguez MD Albumin/Globulin [Mass ratio] 1.0 {ratio} Normal 1.0-2.5 [facility] Comment on above: Performed By: #### D CITLALY, LIP, CMPX, TROPI, BNP, CDP, PT #### [address] [place], [place] [address] Lab Pack Chemist: Sami Dominguez MD Alkaline Phos 98 U/L Normal 35-104 [facility] Comment on above: Performed By: #### D CITLALY, LIP, CMPX, TROPI, BNP, CDP, PT #### [facility] [address] [place], [place] [address] Lab Pack Chemist: Sami Dominguez MD ALT [Catalytic activity/Vol] 16 U/L Normal 5-33 [facility] Comment on above: Performed By: #### D ICTLALY, LIP, CMPX, TROPI, BNP, CDP, PT #### [facility] [address] [place], [place] [address] Lab Pack Chemist: Sami Dominguez MD Anion gap [Moles/Vol] 18 mmol/L High 9-17 [facility] Comment on above: Performed By: #### D CITLALY, LIP, CMPX, TROPI, BNP, CDP, PT #### [facility] [address] [place], [place] [address] Lab Pack Chemist: Sami Dominguez MD AST [Catalytic activity/Vol] 18 U/L Normal <32 [facility] Comment on above: Performed By: #### D CITLALY, LIP, CMPX, TROPI, BNP, CDP, PT #### [facility] [address] [place] [address] Lab Pack Chemist: Sami Dominguez MD Bilirubin Ql (U) 0.31 mg/dL Normal 0.3-1.2 [facility] Comment on above: Performed By: #### D CITLALY, LIP, CMPX, TROPI, BNP, CDP, PT #### [facility] [address] [place] [address] Lab Pack Chemist: Sami Dominguez MD BUN/CRE Ratio 13 Normal 9-20 [facility] Comment on above: Performed By: #### D CITLALY, LIP, CMPX, TROPI, BNP, CDP, PT #### [address] [place], [place] [address] Lab Pack Chemist: Sami Dominguez MD Calcium [Mass/Vol] 9.7 mg/dL Normal 8.6-10.4 [facility] Comment on above: Performed By: #### D CITLALY, LIP, CMPX, TROPI, BNP, CDP, PT #### [address] [place], [place] [address] Lab Pack Chemist: Sami Dominguez MD Chloride [Moles/Vol] 95 mmol/L Low 98-[address] [facility] Comment on above: Performed By: #### D CITLALY, LIP, CMPX, TROPI, BNP, CDP, PT #### [facility] [address] [place] [address] [place] [address] Lab Pack Chemist: Sami Dominguez MD CO2 [Moles/Vol] 18 mmol/L Low 20-31 [facility] Comment on above: Performed By: #### D CITLALY, LIP, CMPX, TROPI, BNP, CDP, PT #### [facility] [address] [place] [address] [place] [place], [place] [address]83 Lab Pack Chemist: Sami Dominguez MD Creatinine [Mass/Vol] 3.07 mg/dL High 0.50-0.90 [facility] Comment on above: Performed By: #### D CITLALY, LIP, CMPX, TROPI, BNP, CDP, PT #### [facility] [address] [place], [place] [address] Lab Pack Chemist: Sami Dominguez MD GFR, Amer 20 mL/min Low >60 [facility] Comment on above: Performed By: #### D CITLALY, LIP, CMPX, TROPI, BNP, CDP, PT #### [facility] [address] [place], [place] [address] Lab Pack Chemist: Sami Dominguez MD GFR,non Amer 17 mL/min Low >[address] [facility] Comment on above: Performed By: #### D CITLALY, LIP, CMPX, TROPI, BNP, CDP, PT #### [facility] [address] [place], [place] [address] Lab Pack Chemist: Sami Dominguez MD Glucose [Mass/Vol] 89 mg/dL Normal 70-99 [facility] Comment on above: Performed By: #### D CITLALY, LIP, CMPX, TROPI, BNP, CDP, PT #### [facility] [address] [place], [place] [id number] Lab Pack Chemist: aSmi Dominguez MD Potassium [Moles/Vol] 3.9 mmol/L Normal 3.7-5.3 [facility] Comment on above: Performed By: #### D CITLALY, LIP, CMPX, TROPI, BNP, CDP, PT #### [facility] [address] [place] [address] Lab Pack Chemist: Sami Dominguez MD Protein [Mass/Vol] 8.8 g/dL High 6.4-8.3 [facility] Comment on above: Performed By: #### D CITLALY, LIP, CMPX, TROPI, BNP, CDP, PT #### [facility] [address] [place] [address] Lab Pack Chemist: Sami Dominguez MD Sodium [Moles/Vol] 131 mmol/L Low 135-144 [facility] Comment on above: Performed By: #### D CITLALY, LIP, CMPX, TROPI, BNP, CDP, PT #### [facility] [address] [place] [address] Lab Pack Chemist: Sami Dominguez MD Staging: Normal [facility] Comment on above: Result Comment: Stag e [...] CDP, PT #### [facility] [address] [place] [address] Lab Pack Chemist: Sami Dominguez MD Urea nitrogen [Mass/Vol] 39 mg/dL High 6-20 [facility] Comment on above: Performed By: #### D CITLALY, LIP, CMPX, TROPI, BNP, CDP, PT #### [facility] [address] [place] [address] Lab Pack Chemist: Sami Dominguez MD Comprehensive Metabolic Pane l w/ Reflex to MGon 08-02-2019 Albumin [Mass/Vol] 4.4 g/dL 3.5 - 5.2 g/dL [place] Albumin/Globulin [Mass ratio] 1.0 {ratio} [place] ALP [Catalytic activity/Vol] 98 U/L 35 - 104 U/L [place] ALT [Catalytic activity/Vol] 16 U/L 5 - 33 U/L [place] Anion gap [Moles/Vol] 18 mmol/L High 9 - 17 mmol/L [place] AST [Catalytic activity/Vol] 18 U/L <32 [place] Bilirubin Ql (U) 0.31 mg/dL 0.3 - 1.2 mg/dL [place] Bun/Cre Ratio 13 [place] Calcium [Mass/Vol] 9.7 mg/dL 8.6 - 10. 4 mg/dL [place] Chloride [Moles/Vol] 95 mmol/L Low 98 - 10 7 mmol/L [place] CO2 [Moles/Vol] 18 mmol/L Low 20 - 31 mmol/L [place] Creatinine [Mass/Vol] 3.07 mg/dL High 0.5 - 0.9 mg/dL [place] GFR 20 mL/min Low >60 [place] GFR Non- 17 mL/min Low >60 [place] Glucose [Mass/Vol] 89 mg/dL 70 - 99 mg/dL [place] Interpretation and review of laboratory results Abnormal [place] Potassium [Moles/Vol] 3.9 mmol/L 3.7 - 5.3 mmol/L [place] Protein [Mass/Vol] 8.8 g/dL High 6.4 - 8.3 g/dL [place] Sodium [Moles/Vol] 131 mmol/L Low 135 - 144 mmol/L [place] Urea nitrogen [Mass/Vol] 39 mg/dL High 6 - 20 mg/dL [place] D-Dimer Teston 08-02-2019 D-Dimer Test 1.15 mg/L FEU High 0.19-0.50 [facility] Comment on above: Result Comment: Elevated levels [...] CDP, PT #### [facility] [address] [place] [address] Lab Pack Chemist: Sami Dominguez MD D-Dimer, Quantitativeon 07-07 D-Dimer, Quant 1.15 High [place] Comment on above: Elevated levels of [...] Interpretation and review of laboratory results Abnormal [place] Lactate, Sepsison 08-02-2019 Lactic Acid, Sepsis 3.6 mmol/L High 0.5-1.9 [facility] Comment on above: Performed By: #### L ACDS #### [address] [place] [address] Lab Pack Chemist: Sami Dominguez MD Lactic Acid,Sep Wbld NOT REPORTED Normal 0.5-1.9 [facility] Comment on above: Performed By: #### L ACDS #### [address] [place] [address] Lab Pack Chemist: Sami Dominguez MD Interpretation and review of laboratory results Abnormal [place] Lactic Acid, Sepsis 3.6 mmol/L High 0.5 - 1. 9 mmol/L [place] Lactic Acid, Sepsis, Whole Blood NOT REPORTED 0.5 - 1.9 mmol/L [place] Lactic Acidon 08-02-2019 Lactate [Moles/Vol] 1.0 mmol/L Normal 0.5-2.2 [facility] Comment on above: Performed By: #### D CITLALY, LIP, CMPX, TROPI, BNP, CDP, PT #### [facility] [address] [place] [address] Lab Pack Chemist: Sami Dominguez MD Lactate [Moles/Vol] NOT REPORTED Normal 0.7-2.1 [facility] Comment on above: Performed By: #### D CITLALY, LIP, CMPX, TROPI, BNP, CDP, PT #### [facility] [address] [place] [address] Lab Pack Chemist: Sami Dominguez MD Lactic Acid, Plasmaon 2018 Lactate [Moles/Vol] 1 mmol/L 0.5 - 2. 2 mmol/L [place] Lactic Acid, Whole Blood NOT REPORTED 0.7 - 2.1 mmol/L [place] Lipaseon 08-02-2019 Lipase [Catalytic activity/Vol] 38 U/L Normal 13-60 [facility] Comment on above: Performed By: #### D CITLALY, LIP, CMPX, TROPI, BNP, CDP, PT #### [facility] [address] [place] [address] Lab Pack Chemist: Sami Dominguez MD Lipase [Catalytic activity/Vol] 38 U/L 13 - 60 U/L [place], [place] Metabolic Panelon 08-02-2019 GFR/1.73 sq M predicted among non-blacks MDRD (S/P/Bld) [Vol rate/Area] [place], [place] Comment on above: Stage 1: Some [...] body mass. Additional eGFR calculator available at: [email or web address] Microscopic Urinalysison Amorphous, UA NOT REPORTED None [place] Bacteria, UA 1+ Abnormal None [place] Casts UA NOT REPORTED /LPF [place] Crystals UA NOT REPORTED None /HPF [place] Epithelial Cells UA 2 TO 5 [place] Interpretation and review of laboratory results Abnormal [place] Mucus, UA NOT REPORTED None [place] Other Observations UA NOT REPORTED NOT REQ. [place] RBC (U) [#/Vol] None [place] Renal Epithelial, Urine NOT REPORTED 0 /HPF [place] Trichomonas, UA NOT REPORTED None [place] WBC, UA 50 TO 100 [place] Yeast, UA NOT REPORTED None [place] PTon 08-02-2019 INR Coag (PPP) [Relative time] 1.0 {INR} Normal 0.9-1.2 [facility] Comment on above: Performed By: #### D CITLALY, LIP, CMPX, TROPI, BNP, CDP, PT #### [facility] [address] [place] [address] Lab Pack Chemist: Sami Dominguez MD PT Coag (PPP) [Time] 10.0 s Normal 9.7-12.[address] [facility] Comment on above: Performed By: #### D CITLALY, LIP, CMPX, TROPI, BNP, CDP, PT #### [facility] [address] [place] [address] Lab Pack Chemist: Sami Dominguez MD Protime-INRon 08-02-2019 INR Coag (PPP) [Relative time] 1.0 {INR} [place], [place] PT Coag (PPP) [Time] 10 s [place] Troponinon 08-02-2019 Troponin I.cardiac [Mass/Vol] ng/mL Normal <0.03 [facility] Comment on above: Result Comment: Trop onin T results cannot be compared to Troponin-I results. Performed By: #### D CITLALY, LIP, CMPX, TROPI, BNP, CDP, PT #### [facility] [address] [place] [address] [place] [address] Lab Pack Chemist: Sami Dominguez MD Troponin I.cardiac [Mass/Vol] Normal [facility] Comment on above: Result Comment: Refe rence [...] #### [facility] [address] [place] [address] Lab Pack Chemist: Sami Dominguez MD Troponin I.cardiac [Mass/Vol] NOT REPORTED Normal 0-14 [facility] Comment on above: Performed By: #### D CITLALY, LIP, CMPX, TROPI, BNP, CDP, PT #### [facility] [address] [place] [address] Lab Pack Chemist: Sami Dominguez MD Troponin I.cardiac [Mass/Vol] [place] Comment on above: Reference Range: <0.03 [...] diagnosis. Troponin T.cardiac [Mass/Vol] ug/L <0.03 ng/mL [place] Comment on above: Troponin T results c annot be compared to Troponin-I results. Troponin, High Sensitivity NOT REPORTED 0 - 14 ng/L [place] Troponin I.cardiac [Mass/Vol] ng/mL Normal <0.03 [facility] Comment on above: Result Comment: Trop onin T results cannot be compared to Troponin-I results. Performed By: #### D CITLALY, LIP, CMPX, TROPI, BNP, CDP, PT #### [facility] [address] [place] [address] Lab Pack Chemist: Sami Dominguez MD Troponin I.cardiac [Mass/Vol] Normal [facility] Comment on above: Result Comment: Refe rence [...] #### [facility] [address] [place] [address] Lab Pack Chemist: Sami Dominguez MD Troponin I.cardiac [Mass/Vol] NOT REPORTED Normal 0-14 [facility] Comment on above: Performed By: #### D CITLALY, LIP, CMPX, TROPI, BNP, CDP, PT #### [facility] [address] [place] [address] Lab Pack Chemist: Sami Dominguez MD Troponin I.cardiac [Mass/Vol] [place] Comment on above: Reference Range: <0.03 [...] diagnosis. Troponin T.cardiac [Mass/Vol] ug/L <0.03 ng/mL [place] Comment on above: Troponin T results c annot be compared to Troponin-I results. Troponin, High Sensitivity NOT REPORTED 0 - 14 ng/L [place] UA w/Reflex Cultureon 2018 Acetoacetic Acid,Ur Negative Normal NEG [facility] Comment on above: Performed By: #### D CITLALY, LIP, CMPX, TROPI, BNP, CDP, PT #### [facility] [address] [place], [place] [address] Lab Pack Chemist: Sami Dominguez MD Bilirubin, SemiQt,Ur Negative Normal [facility] Comment on above: Performed By: #### D CITLALY, LIP, CMPX, TROPI, BNP, CDP, PT #### [facility] [address] [place], [place] [address] Lab Pack Chemist: Sami Dominguez MD Color (U) YELLOW Normal YEL [facility] Comment on above: Performed By: #### D CITLALY, LIP, CMPX, TROPI, BNP, CDP, PT #### [address] [place], [facility] Lab Pack Chemist: Sami Dominguez MD Glucose Ql (U) Negative Normal [facility] Comment on above: Performed By: #### D CITLALY, LIP, CMPX, TROPI, BNP, CDP, PT #### [address] [place], [facility] Lab Pack Chemist: Sami Dominguez MD Hemoglobin, Ur 1+ Abnormal [facility] Comment on above: Performed By: #### D CITLALY, LIP, CMPX, TROPI, BNP, CDP, PT #### [facility] [address] [place] [address] Dr. [place], [place] [address] Lab Pack Chemist: Sami Dominguez MD Leukocyte esterase Test strip Ql (U) MODERATE Abnormal NEG [facility] Comment on above: Performed By: #### D CITLALY, LIP, CMPX, TROPI, BNP, CDP, PT #### [facility] [address] [place], [facility] Lab Pack Chemist: Sami Dominguez MD Nitrite,Ur Negative Normal [facility] Comment on above: Performed By: #### D CITLALY, LIP, CMPX, TROPI, BNP, CDP, PT #### [facility] [address] [place], [place] [id number] Lab Pack Chemist: Sami Dominguez MD pH (U) 6.0 [pH] Normal 5.0-9.0 [facility] Comment on above: Performed By: #### D CITLALY, LIP, CMPX, TROPI, BNP, CDP, PT #### [facility] [address] [place], [place] [id number] Lab Pack Chemist: Sami Dominguez MD Protein Ql (U) TRACE Abnormal NEG [facility] Comment on above: Performed By: #### D CITLALY, LIP, CMPX, TROPI, BNP, CDP, PT #### [facility] [address] [place], [facility] Lab Pack Chemist: Sami Dominguez MD Specific gravity (U) [Rel density] 1.010 Normal 1.010-1.020 [facility] Comment on above: Performed By: #### D CITLALY, LIP, CMPX, TROPI, BNP, CDP, PT #### [address] [place], [place] [id number] Lab Pack Chemist: Sami Dominguez MD Turbidity CLEAR Normal CLEAR [facility] Comment on above: Performed By: #### D CITLALY, LIP, CMPX, TROPI, BNP, CDP, PT #### [facility] [address] [place] [address] Dr. [place], [facility] Lab Pack Chemist: Sami Dominguez MD Urobilinogen,Ur Normal Normal NORM [facility] Comment on above: Performed By: #### D CITLALY, LIP, CMPX, TROPI, BNP, CDP, PT #### [facility] [address] [place], [place] [id number] Lab Pack Chemist: Sami Dominguez MD Comment NOT REPORTED Normal [facility] Comment on above: Performed By: #### D CITLALY, LIP, CMPX, TROPI, BNP, CDP, PT #### [facility] [address] [place] [address] Lab Pack Chemist: Sami Dominguez MD Urinalysis Reflex to Culture on 08-02-2019 Bilirubin Urine Negative NEGATIVE [place] Color, UA YELLOW YELLOW [place] Glucose, Ur Negative NEGATIVE [place] Interpretation and review of laboratory results Abnormal [place] Ketones Ql (U) Negative NEGATIVE [place] Leukocyte esterase Test strip Ql (U) MODERATE Abnormal NEGATIVE [place] Nitrite, Urine Negative NEGATIVE [place] pH, UA 6.0 [place] Protein (U) [Mass/Vol] TRACE Abnormal NEGATIVE [place] Specific [place], UA 1.010 [place] Turbidity UA CLEAR CLEAR [place] Urinalysis Comments NOT REPORTED [place] Urine Hgb 1+ Abnormal NEGATIVE [place] Urobilinogen, Urine Normal Normal [place] Urinalysis,Microon 9 ----- Normal [facility] Comment on above: Performed By: #### D CITLALY, LIP, CMPX, TROPI, BNP, CDP, PT #### [address] [place] [address] Lab Pack Chemist: Sami Dominguez MD Bacteria LM.HPF (Urine sed) [#/Area] 1+ Abnormal NONE [facility] Comment on above: Performed By: #### D CITLALY, LIP, CMPX, TROPI, BNP, CDP, PT #### [address] [place] [address] Lab Pack Chemist: Sami Dominguez MD Epithelial cells LM.HPF (Urine sed) [#/Area] 2 TO 5 Normal 0-25 [facility] Comment on above: Performed By: #### D CITLALY, LIP, CMPX, TROPI, BNP, CDP, PT #### [address] [place] [address] Lab Pack Chemist: Sami Dominguez MD RBC (U) [#/Vol] None Normal 0-2 [facility] Comment on above: Performed By: #### D CITLALY, LIP, CMPX, TROPI, BNP, CDP, PT #### [facility] [address] [place] [address] Lab Pack Chemist: Sami Dominguez MD WBC (U) [#/Vol] 50 TO 100 Normal 0-5 [facility] Comment on above: Performed By: #### D CITLALY, LIP, CMPX, TROPI, BNP, CDP, PT #### [facility] [address] [place] [address] Lab Pack Chemist: Sami Dominguez MD Amorphous sediment LM Ql (Urine sed) NOT REPORTED Normal [facility] Comment on above: Performed By: #### D CITLALY, LIP, CMPX, TROPI, BNP, CDP, PT #### [facility] [address] [place] [address] Lab Pack Chemist: Sami Dominguez MD Casts LM.LPF (Urine sed) [#/Area] NOT REPORTED Normal [facility] Comment on above: Performed By: #### D CITLALY, LIP, CMPX, TROPI, BNP, CDP, PT #### [facility] [address] [place] [address] Lab Pack Chemist: Sami Dominguez MD Crystals LM Nom (Urine sed) NOT REPORTED Normal [facility] Comment on above: Performed By: #### D CITLALY, LIP, CMPX, TROPI, BNP, CDP, PT #### [facility] [address] [place] [address] Lab Pack Chemist: Sami Dominguez MD Epithelial, Renal NOT REPORTED Normal 0 [facility] Comment on above: Performed By: #### D CITLALY, LIP, CMPX, TROPI, BNP, CDP, PT #### [facility] [address] [place] [address] Lab Pack Chemist: Sami Dominguez MD Mucus Strands NOT REPORTED Normal [facility] Comment on above: Performed By: #### D CITLALY, LIP, CMPX, TROPI, BNP, CDP, PT #### [facility] [address] [place], [place] [id number] Lab Pack Chemist: Sami Dominguez MD Other Observations NOT REPORTED Normal NREQ [facility] Comment on above: Performed By: #### D CITLALY, LIP, CMPX, TROPI, BNP, CDP, PT #### [facility] [address] [place] [address] Lab Pack Chemist: Sami Dominguez MD Trichomonas NOT REPORTED Normal [facility] Comment on above: Performed By: #### D CITLALY, LIP, CMPX, TROPI, BNP, CDP, PT #### [facility] [address] [place], [place] [id number] Lab Pack Chemist: Sami Dominguez MD Yeast LM Ql (Urine sed) NOT REPORTED Normal [facility] Comment on above: Performed By: #### D CITLALY, LIP, CMPX, TROPI, BNP, CDP, PT #### [facility] [address] [place], [place] [id number] Lab Pack Chemist: Sami Dominguez MD XR CHEST PORTABLEon 08-02-20 [...] Cullen Ngo MD 08/02/19 Final result Normal [facility] EXAMINATION: ONE XRA Y VIEW OF THE CHEST 08/02/2019 12:59 pm COMPARISON: None. HISTORY: ORDERING SYSTEM PROVIDED HISTORY: CP TECHNOLOGIST PROVIDED HISTORY: CP FINDINGS: Heart size and pulmonary vessels are within normal limits. Lungs are clear. No focal infiltrates or significant pleural effusions are seen. There is no acute osseous abnormality. Monitor leads overlie the chest. [place] No acute cardiopulmo nary process. [place] Moshe, M[facility]pn Incoming Radiant Results From [employer] - 08/02/2019 1:10 PM EDT EXAMINATION: ONE [...] the chest. IMPRESSION: No acute cardiopulmonary process. [place] Vital Signs Date Time Vital Sign Value Performing Clinician Facility 07-27-2024 08:34-0400 Body temperature 97.81 [degF] Lucero Hudson [employer] Work Phone: [facility] 07-27-2024 08:34-0400 Diastolic blood pressure 74 mm[Hg] Lucero Hudson [employer] Work Phone: [facility] 07-27-2024 08:34-0400 Heart rate 83 /min Lucero Hudson [employer] Work Phone: [facility] 07-27-2024 08:34-0400 SaO2% (BldA) [Mass fraction] 98 % Lucero Hudson [employer] Work Phone: [facility] 07-27-2024 08:34-0400 Systolic blood pressure 118 mm[Hg] Lucero Hudson [employer] Work Phone: [facility] 03-15-2024 17:34-0400 Body height 157.48 cm MD DO [facility] Andreia Jerry Work Phone: [facility] 03-15-2024 17:34-0400 Body mass index (BMI) [Ratio] 31.8 kg/m2 MD DO [facility] Andreia Jerry Work Phone: [facility] 03-15-2024 17:34-0400 Body temperature 100.3 [degF] MD DO RESIDENT URGENT CARERoxy Boswell Jerry Work Phone: [facility] 03-15-2024 17:34-0400 Body weight 78.92 kg MD DO [facility] Andreia Jerry Work Phone: [facility] 03-15-2024 17:34-0400 Diastolic blood pressure 79 mm[Hg] MD DO [facility] Andreia Jerry Work Phone: [facility] 03-15-2024 17:34-0400 Heart rate 88 /min MD DO [facility] Andreia Jerry Work Phone: [facility] 03-15-2024 17:34-0400 Respiratory rate 18 /min MD DO [facility] Andreia Jerry Work Phone: [facility] 03-15-2024 17:34-0400 SaO2% (BldA) [Mass fraction] 96 % MD DO [facility] Andreia Jerry Work Phone: [facility] 03-15-2024 17:34-0400 Systolic blood pressure 121 mm[Hg] MD DO [facility] Andreia Jerry Work Phone: [facility] 07-30-2022 17:40-0400 Body height 157.48 cm Yaneth Toni Other [employer] Other 07-30-2022 17:40-0400 Body mass index (BMI) [Ratio] 36.69 kg/m2 Yaneth Toni Other [employer] Other 07-30-2022 17:40-0400 Body temperature 97.4 [degF] Yaneth Toni Other [employer] Other 07-30-2022 17:40-0400 Body weight 90.99 kg Yaneth Toni Other [employer] Other 07-30-2022 17:40-0400 Diastolic blood pressure 85 mm[Hg] Yaneth Toni Other [employer] Other 07-30-2022 17:40-0400 Respiratory rate 18 /min Yaneth Toni Other [employer] Other 07-30-2022 17:40-0400 SaO2% (BldA) [Mass fraction] 99 % Yaneth Toni Other [employer] Other 07-30-2022 17:40-0400 Systolic blood pressure 124 mm[Hg] Yaneth Toni Other [employer] Other 07-03-2022 09:45-0400 Body height 157.48 cm Estefania Camarillogary Other [employer] Other 07-03-2022 09:45-0400 Body mass index (BMI) [Ratio] 36.76 kg/m2 Estefania Camarillogary Other [employer] Other 07-03-2022 09:45-0400 Body temperature 97 [degF] Estefania Camarillogary Other [employer] Other 07-03-2022 09:45-0400 Body weight 91.17 kg Estefania Camarillogary Other [employer] Other 07-03-2022 09:45-0400 Diastolic blood pressure 60 mm[Hg] Setefania Tavo Other [employer] Other 07-03-2022 09:45-0400 SaO2% (BldA) [Mass fraction] 99 % Estefania Tavo Other [employer] Other 07-03-2022 09:45-0400 Systolic blood pressure 110 mm[Hg] Estefania Vo Other [facility] [employer] Other 06-20-2022 16:10-0400 Diastolic blood pressure 68 mm[Hg] DO Ming Alexis Work Phone: [facility] 06-20-2022 16:10-0400 Heart rate 69 /min DO Ming Alexis Work Phone: [facility] 06-20-2022 16:10-0400 Respiratory rate 18 /min DO Ming Alexis Work Phone: [facility] 06-20-2022 16:10-0400 SaO2% (BldA) [Mass fraction] 100 % DO Ming Alexis Work Phone: [facility] 06-20-2022 16:10-0400 Systolic blood pressure 126 mm[Hg] DO Ming Alexis Work Phone: [facility] 06-20-2022 13:15-0400 Body height 157.48 cm DO Ming Alexis Work Phone: [facility] 06-20-2022 13:15-0400 Body temperature 98.6 [degF] DO Ming Alexis Work Phone: [facility] 06-20-2022 13:15-0400 Body weight 91.5 kg DO Ming Alexis Work Phone: [facility] 06-18-2022 10:45-0400 Diastolic blood pressure 79 mm[Hg] DO Ming Alexis Work Phone: [facility] 06-18-2022 10:45-0400 Heart rate 66 /min DO Ming Alexis Work Phone: [facility] 06-18-2022 10:45-0400 Respiratory rate 16 /min DO Ming Alexis Work Phone: [facility] 06-18-2022 10:45-0400 SaO2% (BldA) [Mass fraction] 100 % DO Ming Espinoza Work Phone: [facility] 06-18-2022 10:45-0400 Systolic blood pressure 130 mm[Hg] DO Ming Espinoza Work Phone: [facility] 06-18-2022 08:08-0400 Body mass index (BMI) [Ratio] 37.8 kg/m2 DO Ming Espinoza Work Phone: [facility] 06-18-2022 07:41-0400 Body height 157.48 cm DO Ming Espinoza Work Phone: [facility] 06-18-2022 07:41-0400 Body weight 93.89 kg DO Ming Espinoza Work Phone: [facility] 06-18-2022 06:26-0400 Body temperature 98.5 [degF] DO Ming Espinoza Work Phone: [facility] 05-30-2022 11:00-0400 Body height 157.48 cm Jesus Parham Other [employer] Other 05-30-2022 11:00-0400 Body mass index (BMI) [Ratio] 36.76 kg/m2 Jesus Parham Other [employer] Other 05-30-2022 11:00-0400 Body temperature 97.6 [degF] Jesus Parham Other [employer] Other 05-30-2022 11:00-0400 Body weight 91.17 kg Jesus Parham Other [employer] Other 05-30-2022 11:00-0400 Diastolic blood pressure 76 mm[Hg] Jesus Parham Other [employer] Other 05-30-2022 11:00-0400 SaO2% (BldA) [Mass fraction] 98 % Jesus Dione Other [employer] Other 05-30-2022 11:00-0400 Systolic blood pressure 128 mm[Hg] Jesus Parham Other [employer] Other 05-02-2022 14:40-0400 Body height 157.48 cm Yaneth Toni Other [employer] Other 05-02-2022 14:40-0400 Body mass index (BMI) [Ratio] 36.76 kg/m2 Yaneth Toni Other [employer] Other 05-02-2022 14:40-0400 Body temperature 97.7 [degF] Yaneth Toni Other [employer] Other 05-02-2022 14:40-0400 Body weight 91.17 kg Yaneth Toni Other [employer] Other 05-02-2022 14:40-0400 Diastolic blood pressure 88 mm[Hg] Yaneth Toni Other [employer] Other 05-02-2022 14:40-0400 Respiratory rate 18 /min Yaneth Toni Other [employer] Other 05-02-2022 14:40-0400 SaO2% (BldA) [Mass fraction] 98 % Yaneth Toni Other [employer] Other 05-02-2022 14:40-0400 Systolic blood pressure 121 mm[Hg] Yaneth Amaror Other [employer] Other 04-30-2022 10:10-0400 Body height 157.48 cm Dipika Stinson Other [employer] Other 04-30-2022 10:10-0400 Body mass index (BMI) [Ratio] 37.86 kg/m2 Dipika Stinson Other [employer] Other 04-30-2022 10:10-0400 Body temperature 97.4 [degF] Dipika Juniorault Other [employer] Other 04-30-2022 10:10-0400 Body weight 93.9 kg Dipika Juniorault Other [employer] Other 04-30-2022 10:10-0400 Diastolic blood pressure 80 mm[Hg] Dipika Juniorault Other [employer] Other 04-30-2022 10:10-0400 Respiratory rate 16 /min Dipika Juniorault Other [employer] Other 04-30-2022 10:10-0400 SaO2% (BldA) [Mass fraction] 100 % Dipika Juniorault Other [employer] Other 04-30-2022 10:10-0400 Systolic blood pressure 117 mm[Hg] Dipika Juniorault Other [employer] Other 04-01-2022 09:13-0400 Diastolic blood pressure 62 mm[Hg] DO Ming Espinoza Work Phone: [facility] 04-01-2022 09:13-0400 Heart rate 83 /min DO Ming Espinoza Work Phone: [facility] 04-01-2022 09:13-0400 Respiratory rate 16 /min DO Ming Espinoza Work Phone: [facility] 04-01-2022 09:13-0400 SaO2% (BldA) [Mass fraction] 97 % DO Ming Espinoza Work Phone: [facility] 04-01-2022 09:13-0400 Systolic blood pressure 101 mm[Hg] DO Ming Espinoza Work Phone: [facility] 04-01-2022 07:23-0400 Body height 157.48 cm DO Ming Espinoza Work Phone: [facility] 04-01-2022 07:23-0400 Body mass index (BMI) [Ratio] 37.8 kg/m2 DO Ming Espinoza Work Phone: [facility] 04-01-2022 07:23-0400 Body temperature 97.8 [degF] DO Ming Espinoza Work Phone: [facility] 04-01-2022 07:23-0400 Body weight 93.89 kg DO Ming Espinoza Work Phone: [facility] 12-06-2021 16:20-0500 Body height 157.48 cm Yaneth Toni Other [facility] [employer] Other 12-06-2021 16:20-0500 Body mass index (BMI) [Ratio] 37.86 kg/m2 Yaneth Toni Other [facility] [employer] Other 12-06-2021 16:20-0500 Body weight 93.9 kg Yaneth Toni Other [employer] Other 12-06-2021 16:20-0500 Diastolic blood pressure 89 mm[Hg] Yaneth Toni Other [employer] Other 12-06-2021 16:20-0500 Respiratory rate 18 /min Yaneth Toni Other [employer] Other 12-06-2021 16:20-0500 SaO2% (BldA) [Mass fraction] 97 % Yaneth Toni Other [employer] Other 12-06-2021 16:20-0500 Systolic blood pressure 134 mm[Hg] Yaneth Toni Other [employer] Other 08-02-2019 16:35-0400 Body Temperature 99.3 [degF] [place] 08-02-2019 16:27-0400 Pulse (Heart Rate) 110 /min [place], [place] 08-02-2019 16:27-0400 Pulse Oximetry 98 % [place], [place] 08-02-2019 16:27-0400 Respiratory Rate 14 /min [facility] [place] 08-02-2019 16:16-0400 BP Diastolic 56 mm[Hg] [place] 08-02-2019 16:16-0400 BP Systolic 97 mm[Hg] [place] 08-02-2019 14:59-0400 BMI (Body Mass Index) 37.79 kg/m2 [place] 08-02-2019 14:59-0400 Body weight 90.72 kg [place] 08-02-2019 14:59-0400 Height 154.9 cm [place] Encounters Encounter Date Encounter Type Care Provider Facility Start: 07-27-2024 End: 07-27-2024 Office outpatient visit 15 minutes Lucero Hudson [employer] Work Phone: [facility] Comment on above: Acute non-recurrent pansinusitis (Primary Dx); Side effect of medication Start: 07-27-2024 ambulatory MING ESPINOZA Not Av ailable Start: 07-07-2024 End: 07-07-2024 ambulatory [facility] Start: 07-02-2024 End: 07-02-2024 ambulatory [facility] Start: 05-19-2024 End: 05-19-2024 ambulatory [facility] Start: 04-27-2024 End: 04-27-2024 ambulatory MUNIRA PHAN [facility] Start: 04-23-2024 ambulatory [facility] Start: 04-19-2024 End: 04-19-2024 ambulatory BLAKE HINOJOSA Not Available Start: 04-14-2024 End: 04-14-2024 ambulatory MUNIRA PHAN Not Available Start: 03-23-2024 End: 03-23-2024 ambulatory MING ESPINOZA Not Available Start: 03-15-2024 End: 03-15-2024 ambulatory Andreia Edwards [facility] Work Phone: Start: 03-15-2024 End: 03-15-2024 Departed Referred CECILIA Edwards Work Phone: [facility] [address] Work Phone: Start: 03-15-2024 End: 03-15-2024 Patient encounter procedure CECILIA Edwards Work Phone: [facility] Work Phone: Start: 12-23-2023 End: 12-23-2023 ambulatory MUNIRA PHAN [facility] Start: 12-01-2023 End: 12-01-2023 ambulatory MING ESPINOZA Not Available Start: 11-06-2023 End: 11-06-2023 Patient encounter procedure DO Ming Espinoza Work Phone: [facility] [address] Work Phone: Start: 11-06-2023 End: 11-06-2023 ambulatory DO Ming Espinoza Work Phone: [facility] Work Phone: Start: 10-13-2023 End: 10-13-2023 ambulatory MING ESPINOZA Not Available Start: 09-01-2023 End: 09-01-2023 ambulatory [facility] Start: 08-26-2023 [facility] - [place] Start: 07-30-2023 End: 07-30-2023 ambulatory Referral Self Facility:[facility] Start: 07-30-2022 End: 07-30-2022 ambulatory Yaneth Toni Other [employer] Other Start: 07-30-2022 Office outpatient vi sit 25 minutes Yaneth Toni [facility] Start: 07-29-2022 End: 07-30-2022 ambulatory YANETH TONI Facility: Start: 07-16-2022 End: 07-16-2022 ambulatory DO Ming Espinoza Work Phone: [facility] Work Phone: Start: 07-16-2022 End: 07-16-2022 Patient encounter procedure DO Ming Espinoza Work Phone: [facility] Start: 07-03-2022 End: 07-03-2022 ambulatory Estefania Vo Other [employer] Other Start: 07-03-2022 Follow-up encounter Estefania [facility] Start: 06-20-2022 End: 06-20-2022 ambulatory Jesus Parham Other [employer] Other Start: 06-20-2022 Telephone encounter Jesus Macedo [facility] Start: 06-20-2022 End: 06-20-2022 Emergency department patient visit DO Ming Espinoza Work Phone: [facility]Emergency Room Start: 06-18-2022 End: 06-18-2022 Admission to same day surgery center DO Ming Espinoza Work Phone: [facility] [place] Start: 06-14-2022 End: 06-14-2022 Patient encounter procedure DO Ming Espinoza Work Phone: [facility]-Pre-Surgical Testing Start: 06-06-2022 End: 06-07-[address] BRINDA HINOJOSA Facility:[facility] Start: 06-05-2022 End: 06-05-2022 Patient encounter procedure DO Ming Espinoza Work Phone: [facility]Pre-Surgical Testing Start: 06-03-2022 End: 06-03-2022 ambulatory Jesus Parham Other [employer] Other Start: 06-03-2022 Encounter for other preprocedural examination Jesus Parham [facility] Surgery Start: 06-03-2022 Telephone encounter Jesus Hellen adler [facility] Vascular Surgery Start: 05-30-2022 End: 05-30-2022 ambulatory Jesus Dione Other [employer] Other Start: 05-30-2022 FQ visit new patient Jesus Chungarmani isabel [facility] Vascular Surgery Start: 05-30-2022 End: 05-30-2022 Patient encounter procedure DO Ming Espinoza Work Phone: [facility]-Ultrasound [facility] Start: 05-29-[address] BLAKE HINOJOSA [facility] ity:[facility]1 Start: 05-02-2022 End: 05-02-2022 ambulatory Yaneth Toni Other [employer] Other Start: 05-02-2022 Office outpatient vi sit 25 minutes Yaneth Toni [facility] Nephrology Start: 04-30-2022 End: 04-30-2022 ambulatory Dipika Juniorault Other [employer] Other Start: 04-30-2022 Office outpatient vi sit 15 minutes Dipika Juniorault [facility] Urgent Care Justin Start: 04-30-2022 Encounter for preprocedural laboratory examination YANETH MUÑOZ [facility] Start: 04-29-2022 Encounter for other preprocedural examination DR DOCTOR ALEJANDRO [facility] Start: 04-27-2022 End: 04-28-2022 Encounter for other preprocedural examination DR MING ESPINOZA Facility:[facility] Start: 04-27-2022 End: 04-28-[address] MING ESPINOZA Facility:[facility] Start: 04-27-2022 End: 04-28-2022 Encounter for preprocedural laboratory examination YANETH MUÑOZ Facility:[facility] Start: 04-03-2022 Encounter for other specified special examinations DR DOCTOR ALEJANDRO [facility] Start: 04-01-2022 End: 04-01-2022 Admission to same day surgery center DO Ming Espinoza Work Phone: [facility]Digestive [facility] Start: 03-29-2022 End: 03-30-[address] DOCTOR ALEJANDRO Facility:[facility] Start: 03-29-2022 End: 03-30-2022 Encounter for other specified special examinations DR DOCTOR ALEJANDRO Facility:[facility] Start: 03-28-2022 End: 03-28-2022 Patient encounter procedure DO Ming Espinoza Work Phone: [facility]Pre-Surgical Testing Start: 02-26-2022 End: 02-26-2022 ambulatory Shabbir Jones Other [employer] Other Start: 02-26-2022 Telephone encounter Shabbir VELAZQUEZ [employer] Start: 12-06-2021 End: 12-06-2021 ambulatory Yaneth Muñoz Other [employer] Other Start: 12-06-2021 Office outpatient vi sit 25 minutes Yaneth Muñoz [facility] Nephrology Justin Start: 12-03-2021 End: 12-04-2021 ambulatory YANETH MUÑOZ Facility:[facility] Start: 09-01-2021 End: 09-02-[address] MING ESPINOZA Facility:[facility] Start: 08-02-2019 End: 08-02-2019 Emergency department patient visit VIDAL MADRIGAL [facility] Start: 08-02-2019 End: 08-02-2019 Emergency department patient visit Vidal Madrigal Work Phone: [facility] ED Comment on above: Acute sepsis (HCC) ( Primary Dx); Acute cystitis without hematuria; Chronic renal failure, stage 4 (severe) (HCC); Polycystic kidney disease Procedures Date Procedure Procedure Detail Performing Clinician Start: 03-04-2023 History of renal transplant Renal transplant recipient Lucero Hudson NP Work Phone: Start: 07-16-2022 End: 07-16-2022 Screening mammography of bilateral breasts DO Ming Espinoza Work Phone: Start: 06-18-2022 Arteriovenous fistulization DO Ming Espinoza Work Phone: Start: 05-30-2022 Ultrasound (US) doppler flow mapping of vein of upper limb DO Ming Espinoza Work Phone: Start: 04-01-2022 Screening colonoscopy DO Ming Espinoza Work Phone: Start: 04-01-2022 Colonoscopy Lucero Hudson NP Work Phone: Start: 08-02-2019 Assay of lactate VIDAL MADRIGAL Start: 08-02-2019 Assay of troponin quantitative VIDAL MADRIGAL Start: 08-02-2019 Assay of lactate Vidal Madrigal Work Phone: Start: 08-02-2019 Assay of troponin quantitative Vidal Madrigal Work Phone: Start: 08-02-2019 Culture bacterial quanttative colony count urine VIDAL MADRIGAL Start: 08-02-2019 Radiologic exam chest single view VIDAL MADRIGAL Start: 08-02-2019 Ct thorax w/contrast material VIDAL MADRIGAL Start: 08-02-2019 Assay of lipase VIDAL MADRIGAL Start: 08-02-2019 Assay of troponin quantitative VIDAL KAITLIN Start: 08-02-2019 Blood count complete auto&auto difrntl wbc VIDAL MADRIGAL Start: 08-02-2019 BRAIN NATRIURETIC PEPTIDE VIDAL MADRIGAL Start: 08-02-2019 Fibrin dgradj products d-dimer quantitative VIDAL MADRIGAL Start: 08-02-2019 Prothrombin time VIDAL MADRIGAL Start: 08-02-2019 Assay of lactate VIDAL MADRIGAL Start: 08-02-2019 Culture bacterial blood aerobic w/id isolates VIDAL MADRIGAL Start: 08-02-2019 INITIATE OXYGEN THERAPY PROTOCOL VIDAL MADRIGAL Start: 08-02-2019 Ecg routine ecg w/least 12 lds w/i&r VIDAL MADRIGAL Start: 08-02-2019 Urinalysis microscopic only Vidal Madrigal Work Phone: Start: 08-02-2019 Urnls dip stick/tablet rgnt auto w/o microscopy Vidal Madrigal Work Phone: Start: 08-02-2019 Radiologic exam chest single view Vidal Madrigal Work Phone: Start: 08-02-2019 Ct angiography chest w/contrast/noncontrast Vidal Madrigal Work Phone: Start: 08-02-2019 Assay of lipase Vidal Madrigal Work Phone: Start: 08-02-2019 Assay of troponin quantitative Vidal Madrigal Work Phone: Start: 08-02-2019 Blood count complete auto&auto difrntl wbc Vidal Madrigal Work Phone: Start: 08-02-2019 Fibrin dgradj products d-dimer quantitative Vidal Madrigal Work Phone: Start: 08-02-2019 LACTATE, SEPSIS Vidal Madrigal Work Phone: Start: 08-02-2019 Natriuretic peptide Vidal Madrigal Work Phone: Start: 08-02-2019 Prothrombin time Vidal Madrigal Work Phone: Start: 08-02-2019 INITIATE OXYGEN THERAPY PROTOCOL Vidal Madrigal Work Phone: Start: 08-02-2019 Ecg routine ecg w/least 12 lds w/i&r Vidal Madrigal Work Phone: SARS Antigen (LFIA) DO Angy Espinoza Work Phone: Plan of Treatment Date Care Activity Detail Author Start: 04-01-2032 Screening for malign ant neoplasm of colon [facility] Start: 04-23-2025 Urine screening for protein Diabetes: Urine Protein Screening [facility] Start: 10-01-2024 End: 10-01-2024 Patient encounter procedure 10/01/2024 8:15 AM EST Office Visit [facility] [address] [place], [place] [id number] Ming Espinoza, DO [address] [place] [address] [facility] Start: 08-02-2024 End: 08-02-2024 Patient encounter procedure 08/02/2024 11:00 AM EDT Office Visit [facility] [address] [place], [place] [address] Blake Hinojosa, DO [address] [place] [address] [facility] Start: 08-02-2024 End: 08-02-2024 Professional / ancillary services management 08/02/2024 10:15 AM EDT Ancillary Procedure [facility] [address] [place] [phone] [facility] Start: 07-24-2024 Hemoglobin A1c measurement Diabetes: Hemoglobin A1C [facility] Start: 06-06-2024 Influenza vaccination Influenza Vacc ine (#1) [facility] Start: 03-16-2024 Bacteria identified in Urine by Culture [facility] Start: 03-15-2024 Bacteria identified in Urine by Culture [facility] Start: 11-06-2023 [facility] Start: 07-16-2023 Screening for malign ant neoplasm of breast Mammogram [facility] Start: 06-18-2022 [facility] Start: 06-18-2022 [facility] Start: 04-01-2022 [facility] Work Phone: Start: 06-06-2019 Influenza vaccination Flu vaccine (# 1) [place], [place] Start: 2015 Lipid screen Lipid screen [place], [place] Start: 1996 Cervical cancer screen Cervical canc er screen [place], [place] Start: 1994 DTaP/Tdap/Td vaccine (1 - Tdap) DTaP/Tdap/Td vaccine (1 - Tdap) [place] Start: 1990 HIV screen HIV screen [place], [place] Start: 1985 Glaucoma screening Diabetes: R etinopathy Screening [facility] Start: 1975 Creatinine monitoring Creatinine mon [place], [place] Start: 1975 Potassium monitoring Potassium monit [place], [place] Start: 1975 Screening for malign ant neoplasm of colon [facility] End: 08-02-2019 Bacteria identified Cx Nom (U) Urine Culture Microbiology STAT One Time for 1 Occurrences starting 08/02/2019 until 08/02/2019 [place] Comment on above: One Time for 1 Occur rences starting 08/02/2019 until 08/02/2019 Bacteria identified Cx Nom (U) Urine Culture Microbiology STAT 08/02/2019 1:00 PM EDT [place] End: 08-02-2019 Culture blood #1 Culture blood #1 Microbiology STAT One Time for 1 Occurrences starting 08/02/2019 until 08/02/2019 [place] Comment on above: One Time for 1 Occur rences starting 08/02/2019 until 08/02/2019 End: 08-02-2019 Culture blood #2 Culture blood #2 Microbiology STAT One Time for 1 Occurrences starting 08/02/2019 until 08/02/2019 [place] Comment on above: One Time for 1 Occur rences starting 08/02/2019 until 08/02/2019 EKG 12 Lead EKG 12 Lead ECG STAT 08/02/2019 12:25 PM EDT [place] Homogenous nuclear A b pattern [Titer] in Serum [facility] Initiate Oxygen Ther apy Protocol Initiate Oxygen Therapy Protocol Respiratory Care Routine Daily until discontinued starting 08/02/2019, 2 completed [place] Comment on above: Daily until disconti nued starting 08/02/2019, 2 completed End: 08-02-2019 Lactate, Sepsis Lactate, Sepsis Lab Timed Now Then Every 2hr for 2 Occurrences starting 08/02/2019 until 08/02/2019, 1 completed [place] Comment on above: Now Then Every 2hr f or 2 Occurrences starting 08/02/2019 until 08/02/2019, 1 completed Nuclear Ab [Titer] i n Serum [facility] Patient Education [facility] Work Phone: Patient referral [facility] Work Phone: Potassium [Moles/volume] in Serum or Plasma [facility] Work Phone: Immunizations Immunization Date Immunization Notes Care Provider [facility] 10-26-2023 Influenza, injectabl e, Madin Dillon Canine Kidney, preservative free, quadrivalent Lucero Didion [employer] Work Phone: [facility] 10-26-2023 influenza virus vacc ine, unspecified formulation Lucero Didion [employer] Work Phone: [facility] 10-13-2021 COVID-19 Ad26.COV2.S ([place]) DO Ming Espinoza Work Phone: [facility] 05-29-2020 influenza, high dose seasonal, preservative-free Lucero Didion [employer] Work Phone: [facility] 08-11-2019 influenza, injectabl e, madin raymond canine kidney, preservative free Lucero Didion [employer] Work Phone: [facility] 01-26-2018 pneumococcal polysaccharide vaccine, 23 valent Lucero Didion [employer] Work Phone: [facility] 07-22-2014 seasonal influenza, intradermal, preservative free Lucero Didion [employer] Work Phone: [facility] Payers Date Payer Category Payer Private Health Insurance [employer] [id number] 2015 Unknown [employer] [address] xxxxxxxxx 2015-Present [phone] [address] [place] [address] xxxxxxxxx [id number] 1975 Unknown [id number] [id number]. 2.173 1975 Unknown [id number] 2.16.840.1.990853.3.579. 2.593 1975 Unknown [id number] 2.16.840.1.949546.3.579. 2.593 1975 Unknown [id number] 2.16.840.1.327351.3.579. 2.593 1975 Unknown [id number] 2.16.840.1.852028.3.579. 2.593 1975 Unknown [id number] 2.16.840.1.471666.3.579. 2.593 1975 Unknown [id number] 2.16.840.1.570021.3.579. 2.593 1975 Unknown [id number] 2.16.840.1.273270.3.579. 2.593 1975 Unknown [id number] 2.16.840.1.158475.3.579. 2.593 1975 Unknown [id number] 2.16.840.1.667039.3.579. 2.1259 1975 Unknown [id number] 2.16.840.1.209162.3.579. 2.1259 1975 Unknown [id number] 2.16.840.1.903363.3.579. 2.1259 1975 Unknown [id number] 2.16.840.1.726928.3.579. 2.1259 1975 Unknown [id number] 2.16.840.1.105055.3.579. 2.1259 1975 Unknown [id number] 2.16840.1.581833.3.579. 2.1259 1959 Self-pay [id number] 1959 Unknown [id number] 1959 Unknown [id number] 2.16840.1.508761.19 Unknown [id number] 2.16840.1.427890.19 Unknown [id number] 2.16840.1.069121.3.579. 2.531 Unknown [id number] 2.16840.1.478466.3.579. 2.531 Unknown [id number] 2.16840.1.589230.3.579. 2.531 Social History Date Type Detail Facility [facility] Sex Assigned At Not on file [facility] [place] Start: 04-19-2024 End: 07-27-2024 Sex Assigned At [employer] Other Start: 06-05-2022 End: 03-13-2023 Tobacco smoking status NHIS Never smoked tobacco (finding) [facility] Start: 1975 Sex Assigned At Female [facility] Start: 03-13-2023 Tobacco use and exposure Smokeless tobacco non-user [facility] Start: 07-27-2024 Alcoholic beverage intake Lifetime non-drinker (finding) [facility] Start: 04-19-2024 End: 07-27-2024 History of Social function [facility] How often to you hav e a drink containing alcohol? Never [facility] How many standard drinks containing alcohol do you have on a typical day? Patient does not drink [facility] Start: 05-02-2023 Alcohol Comment Caffeine: occasional tea [facility] Start: 03-25-2023 Gender identity Identifies as female gender (finding) [facility] Start: 10-08-2023 Sexual orientation Heterosexual (finding) [facility] Goals Date Patient Goal Desired Activity /State Clinical Notes 05-17-2020 to 07-27-2024 Lucero Hudson, [employer] - 07/27/2024 8:20 AM EDT Note Date & Type Note Facility 07-27-2024 History of Present illness Narrative Images from the original note were not included. Subjective Patient ID: Mandeep Puri (: 1975) is a 48 y.o. female who presents for URI. History of Present Illness The patient presents for evaluation of sinus congestion. She has been experiencing symptoms since 07/09/2024, which she initially attributed to an allergic reaction. 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 Her symptoms include nasal congestion, eye irritation, and a sensation of pressure in her ears, described as a popping sound. She reports no fevers. She has a history of allergies that often progress to sinus infections. She recently completed a course of Macrobid for a urinary tract infection (UTI) and is feeling better in that regards. She reports a cough producing greenish-yellow phlegm but no chest discomfort. She describes a constant postnasal drip and a sensation of something being stuck in her throat. Despite these symptoms, she is able to eat and drink normally. ALLERGIES She is highly allergic to LAVENDER. Current Outpatient Medications Medication Instructions amLODIPine (NORVASC) 10 mg, Oral, Every morning amoxicillin-clavulanate (Augmentin) 875-125 MG tablet 875 mg, Oral, 2 times daily DULoxetine (CYMBALTA) 60 mg, Oral, Daily ferrous sulfate 325 (65 Fe) MG tablet 1 tablet, Every other day fluconazole (DIFLUCAN) 150 mg, Oral, See admin instructions, Take one tab now. Repeat in 72 hours if symptoms persist. KLOR-CON 20 MEQ ER tablet 20 mEq, Daily Levemir FlexPen 12 Units, Every morning magnesium oxide (Mag-Ox) 400 MG tablet TAKE 2 TABLETS BY MOUTH IN THE MORNING AND 2 TABLETS AT BEDTIME mycophenolate (Myfortic) 180 MG EC tablet 4 tablets, 2 times daily pravastatin (Pravachol) 40 MG tablet Nightly semaglutide (Ozempic, 1 MG/DOSE,) 4 MG/3ML solution pen-injector INJECT 1 MG UNDER THE SKIN 1 (ONE) TIME PER WEEK tacrolimus ER (Envarsus XR) 1 MG tablet ER 2 tablets, Every morning Allergies Allergen Reactions Venlafaxine Other Reaction(s): Rash, hives Venlafaxine Hcl Other Reaction(s): bad side effect Allopurinol Rash Patient Active Problem List Diagnosis Benign essential hypertension ([facility]) Fibromyalgia MICHELLE (iron deficiency anemia) RADHA (obstructive sleep apnea) Renal transplant recipient ([facility]) Type 2 diabetes mellitus with diabetic chronic kidney disease ([facility]) Mixed anxiety and depressive disorder Dyslipidemia ([facility]) Gastroesophageal reflux disease Immunosuppressive management encounter following kidney transplant ([facility]) ADPKD (autosomal dominant polycystic kidney disease) Polyarthritis of multiple sites Anxiety Anemia of renal disease NSTEMI (non-ST elevated myocardial infarction) ([facility]) Polycystic kidney disease Secondary hyperparathyroidism ([facility]) Tonsillolith Stage 4 chronic kidney disease ([facility]) Chronic kidney disease, stage 5 ([facility]) Gout Review of Systems Constitutional: Positive for fatigue. Negative for chills and fever. HENT: Positive for congestion, ear pain, postnasal drip, sinus pressure and sinus pain. Respiratory: Positive for cough. Negative for shortness of breath and wheezing. Cardiovascular: Negative for chest pain, palpitations and leg swelling. Gastrointestinal: Negative for diarrhea, nausea and vomiting. Neurological: Negative for dizziness, light-headedness and headaches. Objective Vital signs: BP 118/74 Pulse 83 Temp 97.8 F SpO2 98% Physical Exam Constitutional: Appearance: She is ill-appearing. HENT: Head: Normocephalic. Ears: Comments: TM's bulging bilaterally with clear effusions Nose: Congestion present. Mouth/Throat: Mouth: Mucous membranes are moist. Pharynx: Posterior oropharyngeal erythema (thick PND) present. Eyes: Pupils: Pupils are equal, round, and reactive to light. Cardiovascular: Rate and Rhythm: Normal rate and regular rhythm. Pulmonary: Effort: Pulmonary effort is normal. Breath sounds: Normal breath sounds. Lymphadenopathy: Cervical: No cervical adenopathy. Skin: General: Skin is warm and dry. Neurological: Mental Status: She is alert and oriented to person, place, and time. Psychiatric: Mood and Affect: Mood normal. Assessment/Plan Assessment & Plan 1. Pansinusitis. Symptoms began on July 09, triggered by exposure to scented trash bags containing lavender, to which she is highly allergic. She reports nasal congestion, eye irritation, ear pressure, and postnasal drainage. No fever or chest pressure is present, but she has a productive cough with greenish-yellow sputum. Examination revealed swollen ear canals. A prescription for Augmentin, to be taken twice daily for 7 days, was provided. Diflucan was also prescribed for use as needed, with a second dose to be taken after three days if necessary. She was advised to consume yogurt daily or every other day to maintain normal anand. 2. Urinary Tract Infection (resolved). She completed a course of MicroBid last week, and her symptoms have resolved. Problem List Items Addressed This Visit None Visit Diagnoses Acute non-recurrent pansinusitis - Primary Relevant Medications amoxicillin-clavulanate (Augmentin) 875-125 MG tablet Side effect of medication Relevant Medications fluconazole (Diflucan) 150 MG tablet Health Maintenance Topic Date Due Diabetes: Retinopathy Screening Never done Mammogram 07/16/2023 Influenza Vaccine (1) 06/06/2024 Diabetes: Hemoglobin A1C 07/24/2024 Diabetes: Urine Protein Screening 04/23/2025 Colorectal Cancer Screening 04/01/2032 Cervical Cancer Screening Discontinued Immunization History Administered Date(s) Administered Influenza, High Dose Seasonal, Preservative Free 05/29/2020 Influenza, Injectable, MDCK, preservative free 08/11/2019 Influenza, injectable, MDCK, preservative free, quadrivalent 10/26/2023 Influenza, seasonal, intradermal, preservative free 07/22/2014 [place] SARS-CoV-2 10/13/2021 Pneumococcal Polysaccharide PPSV23 01/26/2018 -Patient's chronic conditions have been reviewed in preparation for this appointment. Protocols reviewed and updated. A collaborative plan of care has been created for pt regarding specific health concerns. Any barriers to care have been identified and addressed. Any part of this document that has been added/copied from other documents has been reviewed for accuracy and updated as appropriate at the time of the patient encounter. -Follow up for Next scheduled follow-up. Lucero Hudson NP documented in this encounter [facility] 07-09-2024 Note Positive urine cultu re. Per Dr. Blanchard, Macrobid 100 mg BID x 7 days ordered to patient's pharmacy. Pt was informed and verbalized understanding. [facility] 07-07-2024 Note Chief complaint: Rec urrent urinary tract [...] on file Intimate Partner Violence: Unknown (11/27/2023) [place] Safety [place] Fear of Current or Ex-Partner: Not on file Emotionally Abused: Not on file Physically Abused: Not on file Sexually Abused: Not on file Physically or Sexually Abused: Not on file Housing Stability: Not on file Past Medical/Surgical History: Medical History Past Medical History: Diagnosis Date Anxiety Chronic kidney disease, stage 4 (severe) ([facility]) COVID-19 Depressive disorder Fibromyalgia Gastroesophageal reflux disease Gout Hypertension Multiple congenital cysts of kidney Family History: Family History Family History Problem Relation Name Age of [...] has had multiple recurrent urinary tract infections. She was started on methenamine approximately 2 months ago and had a breakthrough infection. She recently had an abdominal CT that showed no evidence of hydronephrosis or nephrolithiasis. There was an ovarian cyst which she will discuss with her talent development analyst. At this point we will recommend continuing the methenamine prophylaxis. She does not prove effective can consider lowering the Myfortic. Sree Blanchard MD [facility] 06-15-2024 Note Patient notified of Augmentin Rx sent in to pharmacy for positive urine culture by NORMA Jasso per Dazo secure chat. Patient verbalizes understanding. [facility] 06-10-2024 Note Patient requests uri ne culture order to be refaxed to [facility]. as the hospital is telling her not received. Order promptly refaxed with confirmation received. Pt advised to FU with coordinator and alternative fax number if hospital reports again no receipt of the order. She acknowledged understanding [facility] 06-09-2024 Note Tac level 3.0, Mg [...] Patient requests order to be faxed to [facility]. [facility] 05-19-2024 Note Chief complaint: Rec urrent [...] on file Intimate Partner Violence: Unknown (11/27/2023) [place] Safety [place] Fear of Current or [...] back after the CT. Sree Blanchard MD [facility] 04-29-2024 Note Patient urine cultur e/susceptible [...] prior to urology appointment. Patient verbalized understanding. [facility] 04-27-2024 Note 04/27/24 Chief Complaint Patient [...] Txp Referring: Yaneth Muñoz Preferred Pharmacy: [facility] - [place], [place] - [address] [place] [address] [place] [address] [facility] [address] [id number] - [place] [address] [facility] [address] OF [address] [address] [facility] [place] [address] [facility] [address] [facility] [address] Subjective Visit Vitals BP 121/60 (BP Location: [...] Dose Status amLODIPine (Norvasc) 10 mg tablet [id number] Yes Take 1 tablet (10 mg) by mouth in the morning. Aguila Parrish MD Taking Active bumetanide (Bumex) 2 mg tablet [id number] Take 1 tablet (2 mg) by mouth in the morning. Patient not taking: Reported on 11/08/2022 gAuila Parrish MD 10/25/22 2359 docusate sodium (Colace) 100 mg capsule [id number] Take 1 capsule (100 mg) by mouth in the morning and at bedtime. Patient not taking: Reported on 09/01/2023 Paty Ansari, NORMA Active DULoxetine (Cymbalta) [address] capsule [id number] Yes Take 1 capsule every day by oral route. Historical ProviderMD Taking Active Envarsus XR 1 mg tablet ER [id number] Yes TAKE 3 TABLETS BY MOUTH ONCE DAILY IN THE MORNING. TAKE ALONG WITH 0.75 MG TABLETS DIRECTED FOR TOTAL DOSE UP TO 4.5 MG PER DAY. Patient taking differently: Take 2 mg by mouth in the morning. Aguila Parrish MD Taking Flag for Review famotidine (Pepcid) 20 mg tablet [id number] Yes Take 1 tablet (20 mg) by mouth in the morning. Patient taking differently: Take 20 mg by mouth if needed. Aguila Parrish MD Taking Active febuxostat (Uloric) 40 mg tablet [id number] Take 0.5 tablets every day by oral route. Historical ProviderMD Active ferrous sulfate 325 (65 Fe) MG tablet [id number] Yes Take 65 mg by mouth every other day. Historical ProviderMD Taking Active fish oil (The Rock-3) 60-90-500 mg capsule [id number] Take 2 capsules (1,000 mg) by mouth in the morning and at bedtime. Patient not taking: Reported on 12/23/2023 Sujit Bernal MD Active Levemir FlexPen 100 unit/mL (3 mL) pen [id number] INJECT 12 UNITS SUBCUTANEOUS IN AM 30 DAYS Historical ProviderMD Active magnesium oxide (Mag-Ox) 400 mg (241.3 mg magnesium) tablet [id number] Yes TAKE 2 TABLETS BY MOUTH IN THE MORNING AND 2 TABLETS AT BEDTIME Sree Blanchard MD Taking Active mycophenolate (Myfortic) 180 mg EC tablet [id number] Yes Take 4 tablets (720 mg) by mouth in the morning and at bedtime. Aguila Parrish MD Taking Active oxyCODONE-acetaminophen (Percocet) 5-325 mg tablet [id number] Take 1 tablet by mouth every 6 (six) hours if needed for severe pain (8-10 pain score) for up to 20 doses. Patient not taking: Reported on 09/01/2023 Paty Ansari NP Active potassium chloride CR (Klor-Con M20) 20 mEq ER tablet [id number] Yes Take 1 tablet (20 mEq) by mouth in the morning. Do not crush or chew. Andrea Elizondo MD Taking Active pravastatin (Pravachol) 40 mg tablet [id number] Yes Take 1 tablet (40 mg) by mouth at bedtime. Patient taking differently: Take 40 mg by mouth at bedtime. 40 mg 4 times a week. Fri Kevin Raymond MD Taking Active semaglutide (Ozempic) 2 mg/dose (8 mg/3 mL) pen injector [id number] Yes Inject 2 mg under the skin every 7 (seven) days. Historical ProviderMD Taking Active tacrolimus ER (Envarsus XR) 0.75 mg tablet ER [id number] Yes Take 2 tablets (1.5 mg) by mouth in the morning. Script total 4.5 mg daily Priyanka Villanueva MD Taking Active tacrolimus ER (Envarsus XR) 1 mg tablet ER [id number] Yes Take 3 tablets (3 mg) by mouth in the morning. Script total 4.5 mg daily Priyanka Villanueva MD Taking Active Immunization History Administered Date(s) Administered Ainsley Sars-Cov-2 Vaccination 10/13/2021 Patient Active Problem List Diagnosis Anxiety COVID-19 Depressive disorder Gastroesophageal reflux disease Gout Primary hyper (more content not included)... [facility] 04-23-2024 Note Patient TAC level, 1 [...] making change in dose. Patient verbalized understanding. [facility] 04-21-2024 Note Patient calledarmida she has had frequent UTI's that her [...] urine culture to be done, voiced understanding. [facility] 03-25-2024 Note Patient called, armida lamar PCP stopped Bactrim and started Keflex for E-coli in urine. On 500 mg tid x 7 days. Advised to hydrate well and get labs, repeat urine culture once completed. Voiced understanding. [facility] 03-16-2024 Note Patient called benigno borrero she is currently being treated for a UTI with bactrim BID for 7 days. [facility] 02-25-2024 Note Received a call from the patient regarding the non-compliant lab letter. Explained to the patient that we had gotten some labs on her but not a CMP or BMP. Patient stated that she has always gotten her labs drawn at [facility]. She will be getting labs drawn tomorrow and she will make sure that the draw the correct labs and have the results sent to us. [facility] 12-23-2023 Note 12/23/23 Chief Complaint Patient presents with Kidney Follow-up Pt has questions about her lab work. PCP: Ming Espinoza MD Txp Referring: Yaneth Muñoz Preferred Pharmacy: [facility] - [place], [place] - [address] [place] [address] [place] [address] [facility] [address] [id number] - [place] [address] [facility] [address] [address] [facility] [place] [address] [facility] [address] Subjective Visit Vitals BP 116/73 (BP Location: [...] Review Audit Reviewed by Trupti Sanchez MA (Glucose And Syrup Weigher) on 12/23/23 at 1430 Medication Order Taking? Sig Documenting Provider Last Dose Status amLODIPine (Norvasc) 10 mg tablet [id number] Take 1 tablet (10 mg) by mouth in the morning. Aguila Parrish MD 10/24/23 2359 bumetanide (Bumex) 2 mg tablet [id number] Take 1 tablet (2 mg) by mouth in the morning. Patient not taking: Reported on 11/08/2022 Aguila Parrish MD 10/25/22 2359 docusate sodium (Colace) 100 mg capsule [id number] Take 1 capsule (100 mg) by mouth in the morning and at bedtime. Patient not taking: Reported on 09/01/2023 Paty Augusta, SIX PACK PACKER Active DULoxetine (Cymbalta) [address] capsule [id number] Yes Take 1 capsule every day by oral route. Historical ProviderMD Taking Active Envarsus XR 1 mg tablet ER [id number] Yes TAKE 3 TABLETS BY MOUTH ONCE DAILY IN THE MORNING. TAKE ALONG WITH 0.75 MG TABLETS DIRECTED FOR TOTAL DOSE UP TO 4.5 MG PER DAY. Patient taking differently: Take 2 mg by mouth in the morning. Aguila Parrish MD Taking Active famotidine (Pepcid) 20 mg tablet [id number] Yes Take 1 tablet (20 mg) by mouth in the morning. Patient taking differently: Take 20 mg by mouth if needed. Aguila Parrish MD Taking Active febuxostat (Uloric) 40 mg tablet [id number] Take 0.5 tablets every day by oral route. Historical ProviderMD Active ferrous sulfate 325 (65 Fe) MG tablet [id number] No Take 65 mg by mouth every other day. Historical ProviderMD Not Taking Active fish oil (The Rock-3) 60-90-500 mg capsule [id number] No Take 2 capsules (1,000 mg) by mouth in the morning and at bedtime. Patient not taking: Reported on 12/23/2023 Sujit Bernal MD Not Taking Active Levemir FlexPen 100 unit/mL (3 mL) pen [id number] No INJECT 12 UNITS SUBCUTANEOUS IN AM 30 DAYS Historical ProviderMD Not Taking Flag for Review magnesium oxide (Mag-Ox) 400 mg (241.3 mg magnesium) tablet [id number] Yes TAKE 2 TABLETS BY MOUTH IN THE MORNING AND 2 TABLETS AT BEDTIME Sree Blanchard MD Taking Active mycophenolate (Myfortic) 180 mg EC tablet [id number] Yes Take 4 tablets (720 mg) by mouth in the morning and at bedtime. Aguila Parrish MD Taking Active oxyCODONE-acetaminophen (Percocet) 5-325 mg tablet [id number] Take 1 tablet by mouth every 6 (six) hours if needed for severe pain (8-10 pain score) for up to 20 doses. Patient not taking: Reported on 09/01/2023 Paty Ansari NP Active potassium chloride CR (Klor-Con M20) 20 mEq ER tablet [id number] Yes Take 1 tablet (20 mEq) by mouth in the morning. Do not crush or chew. Andrea Elizondo MD Taking Active pravastatin (Pravachol) 40 mg tablet [id number] Yes Take 1 tablet (40 mg) by [...] of kidney Stage 4 chronic kidney disease ([facility]) Encounter for aftercare following kidney transplant Immunosuppressed status ([facility]) Hyperuricemia Metabolic acidosis Bilateral lower extremity edema [...] Smokeless tobacco: Neve (more content not included)... [facility] 10-02-2023 Note Per phone order Tyler sorto MD, increase Kdur from 10meq every day to 20meq every day due to K 3.2 on 09/26/23. Pt informed and verbalized understanding. Amiloride removed from her MAR as she reported in July she is not taking and reconfirmed today. [facility] 09-01-2023 Note Attestation signed by Sujit Bernal MD at [...] documentation from me. Sujit Bernal MD, PhD Nephrology Transplant Clinic Patient : Madneep Puri; 47 y.o. REASON FOR VISIT: Follow [...] making adequate urine output with no proteinuria. Eyak kidneys with adult polycystic kidney disease BK [...] for dysphoric moo (more content not included)... [facility] 08-06-2023 Note For K-level of 3.4, left VM to start Kdur [address] Dolores anderson. [facility] 07-24-2023 Note Per phone order Minerva morel MD, discontinue amiloride due to side effects and recheck her CMP in 2 weeks as serum K may drop. This coordinator spoke with Ramila victor in lab to complete CMP today. DSA reentered for next lab draw. Pt notified by phone and verbalized understanding. [facility] 07-24-2023 Note Per Shelly x 7686 BM P specimen not available. Notified Dolores FIERRO by phone and per his phone order, will repeat this labs in 7-10 days and pt was notified by phone and she verbalized understanding. Pt needs copy of her standing lab order. Will prepare for her pickup. [facility] 07-24-2023 Note PT reports not lindsay ating the Amiloride with daily watery diarrhea (no longer formed) x 1 since starting medication with nausea and indigestion/acid reflux aggravated at times even with water. Pt will complete FU CMP and hold this medication pending review with [place] transplant provider. Advised her DSA collection is due as well and she verbalized understanding. Denies fever, chills or being around persons known to be ill. [facility] 07-17-2023 Note Reviewed todays labs in [...] [place] transplant by clinic [facility] M[facility]. Per Dolores FIERRO, the pt may discontinue her Prednisone 5mg every other day dosing and she acknowledged. Tac pending. [facility] 07-16-2023 Note Pt reports stopping Amiloride 5mg every day and starting Potassium 20meq every day & Ozempic 1mg subcutaneous weekly per PCP with improved glucose control. Monitors BP and no concerns. She will present to lab tomorrow for testing. Pt agrees and verbalized understanding. Pt to located her standing lab order for use @ [facility] prn. [facility] 07-16-2023 Note Reviewed by phone wi dahlia Bernal MD pt input about her medication changes by PCP including stopping Amiloride. MD agreed to reschedule her 07/18 RV and review labs tomorrow by phone. Clinic [place] team informed to reschedule pt. [facility] 07-30-2022 Evaluation note Encounter Date Diagnosis [...] She has gout and follows with a blood bank calendar control clerk. She takes Urolic and denies any recent gout flare Jul, Metabolic acidemia, unspecified (ICD-10 - P19.9) She has metabolic acidosis due to the advanced CKD. Continue oral Sodium Bicarbonate [facility] Other 09-28-2022 Evaluation note* Encounter Date Diagnosis [...] disease, unspecified CKD stage (ICD-10 - N18.9) [facility] Encounter Date Diagnosis Assessment Notes Treatment Notes Treatment Clinical Notes May, Pre-op testing (ICD-10 - Z01.818) [facility] Other 08-25-2022 Evaluation note* Encounter Date Diagnosis [...] will schedule this in the near future. [facility] Other 07-28-2022 Evaluation note* Encounter Date Diagnosis [...] explained to her the potential need of SOFTWARE VERIFICATION ENGINEER in future. I discussed with her different options of SOFTWARE VERIFICATION ENGINEER including PD, HTN renal transplant. I provide [...] stephens s gout and follows with a blood bank calendar control clerk. She takes Urolic and denies any recent gout flare [facility] Other 07-26-2022 Evaluation note* Encounter Date Diagnosis [...] care provider if no improvement of symptoms. [facility] Other 05-24-2022 Evaluation note* Encounter Date Diagnosis Assessment Notes Treatment Notes Treatment Clinical Notes February, Screening for colon cancer (ICD-10 - Z12.11) [facility] Other 03-03-2022 Evaluation note* Encounter Date Diagnosis [...] explained to her the potential need of SOFTWARE VERIFICATION ENGINEER in future. I discussed with her different options of SOFTWARE VERIFICATION ENGINEER including PD, HTN renal transplant. I provide [...] She has gout and follows with a blood bank calendar control clerk. She takes Urolic and denies any recent gout flare [facility] Other 06-25-2021 NotePatient Outreach (NEPHMN) MANDEEP PURI ([id number]) 1975 F Date Time Provider Department 03/30/21 PERRI BARRETT During your visit today, we recorded the following information about you: Allergies As of Date: 03/30/2021 Noted Allergy Reaction ALLOPURINOL 08/02/2019 4 - Hives Date Reviewed: 03/30/2021 Reviewed by: Perri J Heyka, MD - Fully Assessed Visit Diagnosis:Screening for genitourinary condition [Z13.89] Order(s):URINALYSIS, DIPSTICK ONLY [SQUA] Order #: [id number]. #:[id number] Prescriptions as of 03/30/2021 Sig: DULOXETINE 60 [...] dominant polycystic kidney dis*03/30/2021 Encounter Status:Closed by Dazo, PRODUSER on 04/02/21[facility] 03-30-2021 NoteHNO ID: [id number] Author: Perri Barrett MD Service: ? Author Type: Physician Type: Progress Notes Filed: 03/30/2021 10:25 AM Note Text: Mrs. 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 [facility] general Narrative - Reported * Type Description Date Medical History HTN (hypertension) Medical History Anxiety Medical History polycystic kidneys Medical History COVID 05-17-2020 Surgical History C section Surgical History BREAST REDUCTION Hospitalization History child Hospitalization History KIDNEY INFECTION 07/2019 Hospitalization History COVID AND DEHYDRATION [facility] Other [id number] History general Narrative - Reported* Type Description Date Medical History HTN (hypertension) Medical History Anxiety Medical History polycystic kidneys Medical History COVID 05-17-2020 Medical History end stage renal disease Surgical History C section Surgical History BREAST REDUCTION Surgical History colonoscopy 04/01/2022 Surgical History wisdom teeth 03/24/2022 Hospitalization History child Hospitalization History KIDNEY INFECTION 07/2019 Hospitalization History COVID AND DEHYDRATION [facility] Other 08-12-2020 History general Narrative - Reported* [...] INFECTION 07/2019 Hospitalization History COVID AND DEHYDRATION [facility] Other 08-12-2020 History general Narrative - Reported* [...] INFECTION 07/2019 Hospitalization History COVID AND DEHYDRATION [employer] [employer] [facility] Other evaluxiynh noteNo assessment information available [facility] Work Phone: evaluation noteNo InformationNort [place] Other evaluhxoaa note* Diagnosis Onset Date Resolution Status Dysuria acute UTI (urinary tract infection) acute [facility] Work Phone: evaluation note* Diagnosis Acute non-recurrent pansinusitis- Primary Side effect of medication documented in this encounter [facility] Diagnosis Acute sepsis (HCC)- Primary Acute cystitis without hematuria Acute cystitis Chronic renal failure, stage 4 (severe) (HCC) Polycystic kidney disease Polycystic kidney, unspecified type Advance Directives No Advanced Directives Records FoundDocuments on File Type Date Recorded Patient Licensed Acupuncturist Expl anation Advance Directives and Living Will Power of [place] Advance Directive Response Recorded Date/ Time Advance [...] started about 20-30 minutes ago Back Pain Reason Comments URI INFORMATION SOURCE (unrecogn ized section and content) DATE CREATED AUTHOR 08/04/2019 [facility] DATE CREATED AUTHOR AUTHOR'S ORGANIZ ATION 04/28/2020 [facility] DATE CREATED AUTHOR AUTHOR'S ORGANIZ ATION 09/12/2020 [facility] DATE CREATED AUTHOR AUTHOR'S ORGANIZ ATION 11/07/2021 [facility] DATE CREATED AUTHOR AUTHOR'S ORGANIZ ATION 02/27/2022 [facility] DATE CREATED AUTHOR AUTHOR'S ORGANIZ ATION 08/04/2022 [facility] DATE CREATED AUTHOR AUTHOR'S ORGANIZ ATION 03/22/2024 [facility] DATE CREATED AUTHOR AUTHOR'S ORGANIZ ATION 07/11/2024 [facility] DATE CREATED AUTHOR AUTHOR'S ORGANIZ ATION 07/29/2024 [facility] d[facility] Specialists EPIC Care Teams (unrecognized sec [...] March 15, 2024 End: March 15, 2024 Shutdown Planner Relationship Specialty Start Date End Date Ming Espinoza DO [address] [place] [address] PCP - Medical [employer] 10/06/21 10/05/99 Ming Espinoza DO [address] [place] [address] PCP - General Internal Medicine 05/02/23 Goals (unrecognized section and content) Goals may [...] BE BASED ON THE PRIMARY CLINICAL RECORDS. [facility]. provides no warranty or guarantee of the accuracy or completeness of information in this document.
[2024-07-31 09:46] LABS: Basophils Percent Auto 0.5 % (0.2-2.0); Eosinophils Absolute Auto 0.2 10^3/uL (0.0-0.7); Eosinophils Percent Auto 2.9 % (0.9-7.0); Hematocrit 35.2 % (36.0-48.0); Hemoglobin 11.4 g/dL (12.0-16.0); Immature Granulocytes Abs Auto 0.06 10^3/uL (0.00-0.03); Immature Granulocytes Pct Auto 0.7 % (0.0-0.5); Lymphocytes Absolute Auto 1.1 10^3/uL (1.2-3.8); Mean Corpuscular HGB Conc 32.4 g/dL (29.9-35.2); Mean Corpuscular Volume 86.5 fL (81.0-99.0); Mean Platelet Volume 8.3 fL (9.5-13.5); Monocytes Absolute Auto 0.4 10^3/uL (0.3-0.8); Neutrophils Absolute Auto 6.3 10^3/uL (1.4-6.5); Neutrophils Percent Auto 76.9 % (43.0-75.0); Platelet Count 362 10^3/uL (150-450); Red Blood Count 4.07 10^6/uL (4.20-5.40); Red Cell Distribution Width 14.4 % (11.0-15.0); White Blood Count 8.2 10^3/uL (4.0-11.0)
[2024-07-31 10:36] LABS: Alanine Aminotransferase 19 U/L (14-59); Albumin Globulin Ratio 0.8; Albumin Level 3.4 g/dL (3.4-5.0); Alkaline Phosphatase 88 U/L (46-116); Anion Gap 14.2; Aspartate Amino Transferase 15 U/L (15-37); BUN Creatinine Ratio 12.7; Bilirubin Direct 0.1 mg/dL (0.0-0.2); Bilirubin Total 0.4 mg/dL (0.2-1.0); Calcium 9.1 mg/dL (8.5-10.1); Carbon Dioxide 25.6 mmol/L (21.0-32.0); Chloride 104 mmol/L (98-107); Estimated GFR (African America 55 (>=60 mL/min/1.73m^2); Estimated GFR (Non-African Ame 45 (>=60 mL/min/1.73m^2); Globulin 4.4 g/dL; Glucose 128 mg/dL (74-106); Magnesium 1.7 mg/dL (1.8-2.4); Potassium 3.8 mmol/L (3.5-5.1); Sodium 140 mmol/L (136-145); Total Protein 7.8 g/dL (6.4-8.2); Uric Acid 4.2 mg/dL (2.6-6.0)
[2024-08-03 18:07] LABS: Tacrolimus (FK506), Blood 8.2 ng/mL (2.0-20.0)
== END 2024-07-31 09:01 | disposition home or self-care (01) ==
LOC: LAB 09:02
PROVIDERS: PCP Internal Medicine; Visit Provider Internal Medicine Nephrology
DX: E78.5 Hyperlipidemia, unspecified (principal); Z94.0 Kidney transplant status; R73.01 Impaired fasting glucose; R60.9 Edema, unspecified
CPT/HCPCS: 36415; 80053; 80197; 82248; 83735; 84100; 84550; 85025

== ENCOUNTER 2024-08-31 07:13 | Outpatient (OUT) | payer OTHER, SELFPAY ==
--- OUTSIDE RECORDS SUMMARY | 2024-08-31 07:18 | XMS_ITS | CCD ---
Author Organization [facility] Care Team Providers Care Environmental Communications Specialist Name Role Phone Ming Espinoza Primary Care Provider VIDAL MADRIGAL Attending Unavailable MING ESPINOZA Primary Care Unavailable Toni, Yaneth Unavailable Shabbir Jones Unavailable Dipika Stinson Unavailable Jesus Parham Unavailable [phone] DO Ming Espinoza Primary Care Provider MD Shabbir Jones Attending Provider [phone] MD Yaneth Muñoz Attending Provider MD Jesus Parham Attending Provider Estefania Vo Unavailable DO Ming Espinoza Primary Care Provider EB Forman Emergency Provider [phone] DO Blake Hinojosa Attending Provider [phone] JAVON, DR ZARAGOZA Admitting Unavailable DR MING ESPINOZA Primary Care Unavailable MISRadha, DR ZARAGOZA Attending Unavailable JAVON, DR ZARAGOZA Consulting Unavailable TONI, YANETH Admitting [...] Attending Unavailable TONI, YANETH Consulting Unavailable DR BRINDA HINOJOSA Admitting Unavailable DR MING ESPINOZA Primary Care Unavailable JAYCEE, DR PARRY Attending [...] Ceja Attending Provider CECILIA Edwards Attending Provider Ming Espinoza DO Unavailable Ming Espinoza DO Primary Care Provider MING ESPINOZA Attending Unavailable MING ESPINOZA Referring Unavailable MING ESPINOZA Referring Unavailable LUCERO HUDSON Attending Unavailable MING ESPINOZA Attending Unavailable MUNIRA PHAN Referring Unavailable BLAKE HINOJOSA Attending Unavailable BLAKE HINOJOSA Referring Unavailable MING ESPINOZA Referring Unavailable LUCERO UHDSON Attending Unavailable BLAKE HINOJOSA Attending Unavailable DO Ming Espinoza Primary Care Provider [phone] MD Jesus Ayala Attending Provider DO Blake Hinojosa Referring Provider MUNIRA PHAN Attending Unavailable SREE BLANCHARD Attending Unavailable SREE BLANCHARD Attending Unavailable SUJIT BERNAL Referring Unavailable MUNIRA PHAN Attending Unavailable SREE BLANCHARD Referring Unavailable Ming Espinoza DO Primary Care Provider Jesus Ayala MD Attending Provider Blake Hinojosa DO Referring Provider Blake Hinojosa DO Attending Provider [phone] Andreia Edwards Attending Unavailable Andreia Edwards Admitting Unavailable Perri Ceja Admitting Unavailable Ming Espinoza Primary Care Unavailable Perri Ceja Attending Unavailable Blake Hinojosa Referring Unavailable Jesus Ayala Attending Unavailable Jesus Ayala Admitting Unavailable Ming Espinoza Primary Care Unavailable Blake Hinojosa Attending Unavailable Blake Hinojosa Admitting Unavailable Ming Espinoza Primary Care Unavailable Allergies Allergy Classification Reported Allergen(s) Allergy Type Date of Onset Reaction(s) Facility (20 sources) Allopurinol; Translations: [ALLOPURINOL] Drug Allergy 9 hives, Rash [place], [place] (16 sources) venlafaxine; Translations: [VENLAFAXINE] Drug Allergy 2 Rash, Rash, hives [facility] (7 sources) venlafaxine; Translations: [VENLAFAXINE HCL] Drug Allergy 1 [facility] (1 source) Allopurinol Drug Allergy 4 [facility] Repository Medications Current Medications Medication Drug Class(es) Dates Sig (Normalized) Sig (Original) amLODIPine 10 mg oral tablet (9 sources) Dihydropyridine Calcium Channel Eliz Start: 03-15-2024 take 1 tablet by mouth once daily Amlodipine 10 mg tablet Active 10 MG PO Daily March 14, 2024 11:00pm amoxicillin 875 mg / clavulanate 125 mg oral tablet (8 sources) Penicillin-class Antibacterial Start: 07-27-2024 End: 08-03-2024 take 1 tablet by mouth in the morning amoxicillin-clavul anate (Augmentin) 875-125 MG tablet Indications: Acute non-recurrent [...] acid 7540 MG / polyethylene glycol 3350 18729 MG / potassium chloride 1200 MG / sodium ascorbate 05234 MG / sodium chloride 3200 MG Powder for Oral Solution) / 1 (polyethylene glycol 3350 089150 MG / potassium chloride 1000 MG / sodium chloride 2000 MG / sodium sulfate 9000 MG Powder for Oral Solution) } Pack [Plenvu] (1 source) Osmotic Laxative, Vitamin C Start: 02-26-2022 Plenvu 140 GM dose 1 pouch at 4pm, dose 2 pouch A & B at 11pm Orally twice a day for 1 days [id number] PCN: [id number] GROUP:[id number] ID:[id number] February, Active cephalexin 500 mg oral capsule (20 sources) Cephalosporin Antibacterial Start: 03-22-2024 End: 07-27-2024 take 1 capsule by mouth twice daily Cephalexin 500 mg capsule Active 500 MG PO Twice daily 14 March 23, 2024 11:00pm Start: 04-01-2022 End: 06-05-2022 take 1 capsule by mouth four times daily Cephalexin 500 mg Capsule Discontinued 500 MG PO Four times daily [...] Discontinued 500 MG PO Q8H 15 January 19, 2019 11:00pm August 02, 2019 4:51pm cetirizine hydrochloride 10 mg oral tablet (12 sources) Histamine-1 Receptor Antagonist Start: 03-15-2024 take 1 tablet by mouth once daily as needed Cetirizine (Zyrtec) 10 mg tablet Active 10 MG PO Daily March 14, 2024 11:00pm FreeTextSi tablet as needed Orally Once a day; Note: Source Status: Taking; Provider: Delma Whitney ( ) take 1 tablet by denys once daily as needed ZyrTEC Allergy 10 MG 1 tablet as needed Orally Once a day Active DULoxetine 60 mg delayed release oral capsule (20 sources) Serotonin and Norepinephrine Reuptake Inhibitor Start: 01-19-2019 End: 08-02-2024 take 1 capsule by mouth once daily in the morning Duloxetine 60 mg capsule,delayed release(DR/EC) Active 60 MG PO Every morning January 18, 2019 11:00pm DULoxetine (Cymb juan) [address] capsule Take 30 mg by mouth in the morning and 30 mg before bedtime. Take with 60 MG tablet. Active DULoxetine HCl ( CYMBALTA PO) Take by mouth 0 Active ferrous sulfate 325 mg oral tablet (20 sources) Start: 03-15-2024 take 1 tablet by mouth once daily Ferrous Sulfate 325 mg (65 mg iron) tablet Active 325 MG PO Daily March 14, 2024 11:00pm Start: 04-01-2022 End: 03-15-2024 take 1 tablet by mouth every other day Ferrous Sulfate 27 mg iron Tablet Discontinued 27 MG PO Q2D March 31, 2022 11:00pm March 15, 2024 4:30pm Start: 07-10-2021 take 1 tablet by denys th every other day ferrous sulfate 325 (65 Fe) MG tablet Take 1 tablet by mouth every other day. 07/10/2021 Active Start: 08-05-2019 End: 04-01-2022 take 1 tablet by mouth twice daily Ferrous Sulfate 324 mg (65 mg iron) Tablet,Delayed Release (Dr/Ec) Discontinued 324 MG PO Twice daily 60 August 04, 2019 11:00pm April 01, 2022 6:05am Start: 01-20-2019 End: 08-02-2019 take 1 tablet by mouth twice daily Ferrous Sulfate 324 mg (65 mg iron) Tablet,Delayed Release (Dr/Ec) Discontinued 324 MG PO Twice daily 60 January 19, 2019 11:00pm August 02, 2019 4:52pm fluconazole 150 mg oral tablet (2 sources) [...] ml insulin detemir 100 unt/ml pen injector (6 sources) Insulin Analog Levemir FlexPen 100 UNIT/ML pen Inject 12 Units under the skin in the morning. Active Iron (9 sources) take 1 tablet by mouth every other day Iron (Ferrous Sulfate) 325 (65 Fe) MG 1 tablet Orally every other day Active magnesium oxide 400 mg oral tablet (10 sources) Start: 03-31-2024 End: 08-02-2024 take 2 tablets by mouth in the morning magnesium oxide (Mag-Ox) 400 MG tablet TAKE 2 TABLETS BY MOUTH IN THE MORNING AND 2 TABLETS AT BEDTIME 03/31/2024 08/02/2024 Discontinued (Duplicate order) Start: 03-15-2024 take 1 tablet by denys th once daily at bedtime Magnesium Oxide 400 mg (241.3 mg magnesium) tablet Active 800 MG PO Daily at bedtime March 14, 2024 11:00pm methenamine hippurate 1000 mg oral tablet (3 sources) take 1 tablet by mouth twice daily methenamine hippurate (Hiprex) 1 g tablet TAKE 1 TABLET (1 G) BY MOUTH TWO TIMES DAILY. Active Multivitamin (Multiple Vitamins) tablet (3 sources) Start: 03-15-2024 take 1 tablet by mouth once daily Multivitamin (Multiple Vitamins) tablet Active 1 TAB PO Daily March 14, 2024 11:00pm Start: 03-15-2024 take 1 tablet by denys th once daily Multivitamin (Multiple Vitamins) tablet Active 1 TAB PO Daily March 15, 2024 12:00am Multivitamin preparation (9 sources) take 1 tablet by mouth once daily Multi Vitamin - 1 tablet Orally Once a day Active MYCOPHENOLATE (2 sources) Start: 2023 take 180 mg by mouth once daily Mycophenolate Sodium Active 180 MG PO Daily March 15, 2024 12:00am Mycophenolate Sodium 180 mg tablet,delayed release (DR/EC) (1 source) Start: 2023 take 1 tablet by mouth once daily Mycophenolate Sodium 180 mg tablet,delayed release (DR/EC) Active 180 MG PO Daily March 14, 2024 11:00pm mycophenolic acid 180 mg delayed release oral tablet (6 sources) Antimetabolite Immunosuppressant take 4 tablets by mouth in the morning mycophenolate (Myfortic) 180 MG EC tablet Take 4 tablets by mouth in the morning and 4 tablets before bedtime. Active microencapsulated potassium chloride 20 meq extended release oral tablet (6 sources) take 1 tablet by mouth once daily KLOR-CON 20 MEQ ER tablet Take 20 mEq by mouth Daily Active Potassium Chloride (Klor-Con M20) 20 mEq tablet,ER particles/crystals (3 sources) Start: 2023 Potassium Chloride (Klor-Con M20) 20 mEq tablet,ER particles/crystals Active 20 MEQ PO Daily March 14, 2024 11:00pm Start: 03-15-2024 Potassium Chlo ride (Klor-Con M20) 20 mEq tablet,ER particles/crystals Active 20 MEQ PO Daily March 15, 2024 12:00am pravastatin sodium 40 mg oral tablet (9 sources) HMG-CoA Reductase Inhibitor Start: 03-15-2024 take 1 tablet by mouth once daily Pravastatin 40 mg tablet Active 40 MG PO Daily March 14, 2024 11:00pm Semaglutide (Ozempic) 2 mg/dose (8 mg/3 mL) pen injector (3 sources) Start: 03-15-2024 Semaglutide (Ozempic) 2 mg/dose (8 mg/3 mL) pen injector Active MG SUBCUT March 14, 2024 11:00pm Start: 03-15-2024 Semaglutide (O zempic) 2 mg/dose (8 mg/3 mL) pen injector Active MG SUBCUT March 15, 2024 12:00am semaglutide (Ozempic, 1 MG/DOSE,) 4 MG/3ML solution pen-injector (6 sources) Start: 06-29-2024 inject 1 mg by subcutaneous injection every week semaglutide (Ozempic, 1 MG/DOSE,) 4 MG/3ML solution pen-injector Indications: Type 2 diabetes mellitus with other specified complication, without long-term current use of insulin ([facility]) INJECT 1 MG UNDER THE SKIN 1 (ONE) TIME PER WEEK 3 mL 3 06/29/2024 Active 3 ml sodium chloride 9 mg/ml injection (4 sources) Start: 08-02-2019 sodium chlorid e flush 0.9 % injection 10 mL Start: 08-02-2019 sodium chlorid e flush 0.9 % injection 10 mL Start: 08-02-2019 End: 08-02-2019 0.9 % sodium chloride bolus sulfamethoxazole 800 mg / trimethoprim 160 mg oral tablet (3 sources) Dihydrofolate Reductase Inhibitor Antibacterial, Sulfonamide Antimicrobial Start: 03-15-2024 take 1 tablet by mouth twice daily Sulfamethoxazole-Trimethoprim (Bactrim Ds) 800-160 mg tablet Active 1 TAB PO Twice daily 14 7 March 14, 2024 11:00pm 24 hr tacrolimus 1 mg extended release oral tablet (9 sources) Calcineurin Inhibitor Immunosuppressant Start: 03-15-2024 Tacrolimus (Envarsus Xr) 1 m g tablet extended release 24 hr Active MG PO March 14, 2024 11:00pm tiZANidine (3 sources) Central alpha-2 Adrenergic Agonist tiZANidine HCl (MIMI FLEX PO) Take by mouth Active Completed/Discontinued Medications Medication Drug Class(es) Dates Sig (Normalized) Sig (Original) acetaminophen 500 mg oral tablet (9 sources) Start: 08-02-2019 End: 08-02-2019 acetaminophen (TYLENOL) tablet 1,000 mg Start: 08-02-2019 take 2 tablets by mo ut once daily as needed for pain Acetaminophen (Tylenol Extra Strength) 500 mg Tablet Active 1000 MG PO Daily as needed for Muscle Pain August 01, 2019 11:00pm calcitriol 0.65970 mg oral capsule (8 sources) Vitamin D3 Analog Start: 01-20-2019 End: 08-02-2019 Calcitriol (Rocaltrol) 0.25 mcg Capsule Discontinued 0.25 MCG PO MoWeFr@0900 12 January 19, 2019 11:00pm August 02, 2019 4:53pm calcium carbonate 500 mg chewable tablet (8 sources) Start: 01-19-2019 End: 08-02-2019 take 1 tablet by mouth four times daily as needed for gastroesophageal reflux disease Calcium Carbonate (Tums) 200 mg calcium (500 mg) Tablet,Chewable Discontinued 200 MG PO Four times daily as needed for Heartburn January 18, 2019 11:00pm August 02, 2019 4:51pm cefTRIAXone (ROCEPHIN) 1 g in sterile water 10 mL IV syringe (1 source) Start: 08-02-2019 End: 08-02-2019 cefTRIAXone (ROCEPHIN) 1 g in sterile water 10 mL IV syringe ciprofloxacin 250 mg oral tablet (8 sources) Quinolone Antimicrobial Start: 05-15-2020 End: 04-01-2022 take 1 tablet by mouth every twelve hours Ciprofloxacin Hcl (Cipro) 250 mg tablet Discontinued 250 MG PO Q12H 6 3 May 14, 2020 11:00pm April 01, 2022 6:03am ergocalciferol 1.25 mg oral capsule (8 sources) Provitamin D2 Compound Start: 01-20-2019 End: 08-02-2019 take 1 capsule by mouth every month Ergocalciferol (Vitamin D2) 50,000 unit capsule Discontinued 27803 UNIT PO every month January 19, 2019 11:00pm August 02, 2019 4:53pm febuxostat 40 mg oral tablet (17 sources) Xanthine Oxidase Inhibitor Start: 08-02-2019 End: 03-15-2024 Febuxostat (Uloric) 40 mg Tablet Discontinued 20 MG PO Every morning August 01, 2019 11:00pm March 15, 2024 4:37pm take 0.5 tablet by mouth once da larissa Uloric 40 MG 1/2 tablet Orally Once a day Active hydroCHLOROthiazide 12.5 mg / lisinopril 20 mg oral tablet (8 sources) Thiazide Diuretic, Angiotensin Converting Enzyme Inhibitor Start: 01-19-2019 End: 08-05-2019 take 1 tablet by mouth once daily Lisinopril-Hydrochlorothiazide 20-12.5 mg tablet Discontinued 1 TAB PO Daily January 18, 2019 11:00pm August 05, 2019 3:31pm Iopamidol (1 source) Radiographic Contrast Agent Start: 08-02-2019 End: 08-02-2019 iopamidol (ISOVUE-370) 76 % injection 100 mL lisinopril 20 mg oral tablet (20 sources) Angiotensin Converting Enzyme Inhibitor Start: 08-05-2019 End: 03-15-2024 take 1 tablet by mouth once daily in the morning Lisinopril 20 mg tablet Discontinued 20 MG PO Every morning June 05, 2022 8:09am March 15, 2024 4:37pm LISINOPRIL PO Ta ke by mouth 0 Active sodium bicarbonate 650 mg oral tablet (17 sources) Start: 04-01-2022 End: 03-15-2024 take 1 tablet by mouth twice daily Sodium Bicarbonate 650 mg Tablet Discontinued 650 MG PO Twice daily March 31, 2022 11:00pm March 15, 2024 4:37pm Problems Active Problems Problem Classification Problem Date Documented Date Episodic/Chronic Abdominal pain (2 sources) Pelvic and perineal pain; Translations: [Pelvic and perineal pain] Onset: Episodic Acute and chronic tonsillitis (18 sources) Amygdalolith; Translations: [Other chronic diseases of tonsils and adenoids] Onset: 4 03-15-2024 Chronic Acute and unspecified renal failure (1 source) Chronic renal failure; Translations: [Chronic renal failure, stage 4 (severe) (HCC)] Chronic Acute and unspecified renal failure (8 sources) Injury of kidney; Translations: [Acute kidney failure, unspecified] 01-19-2019 Episodic Acute myocardial infarction (14 sources) Myocardial infarction; Translations: [Non-ST elevation (NSTEMI) myocardial infarction] Onset: 4 08-03-2019 Chronic Anxiety disorders (15 sources) Anxiety; Translations: [Anxiety disorder, unspecified] Onset: 9 03-15-2024 Chronic Chronic kidney disease (20 sources) Chronic kidney disease stage 4; Translations: [Chronic kidney disease, stage 4 (severe)] Onset: 2 Resolved: 3 Chronic Complications of surgical procedures or medical care (2 sources) Drug therapy finding; Translations: [Unspecified adverse effect of drug or medicament, initial encounter] 07-27-2024 Episodic Deficiency and other anemia (20 sources) Anemia of renal disease; Translations: [Anemia in chronic kidney disease] Onset: 4 01-19-2019 Chronic Deficiency and other anemia (8 sources) Anemia in chronic kidney disease; Translations: [ANEMIA IN CHRONIC KIDNEY DISEASE] Onset: 1 Resolved: 2 Chronic Deficiency and other anemia (18 sources) Iron deficiency anemia; Translations: [Iron deficiency anemia, unspecified] Onset: 3 03-15-2024 Episodic Diabetes mellitus with complications (6 sources) Chronic kidney disease due to type 2 diabetes mellitus; Translations: [Type 2 diabetes mellitus with diabetic chronic kidney disease] Onset: 3 03-04-2023 Chronic Disorders of lipid metabolism (6 sources) Dyslipidemia; Translations: [Hyperlipidemia, unspecified] Onset: 3 06-10-2023 Chronic Esophageal disorders (6 sources) Gastroesophageal reflux disease; Translations: [Gastro-esophageal reflux disease without esophagitis] Onset: 2 06-10-2023 Chronic Essential hypertension (12 sources) Benign essential hypertension; Translations: [Essential (primary) hypertension] Onset: 3 Resolved: 3 03-04-2023 Chronic Fever of unknown origin (8 sources) Fever; Translations: [Fever, unspecified] 05-22-2020 Episodic Genitourinary congenital anomalies (20 sources) Polycystic kidney disease, adult type; Translations: [Polycystic kidney, adult type] Onset: 1 Resolved: 2 Chronic Genitourinary congenital anomalies (1 source) Multiple renal cysts; Translations: [Polycystic kidney disease] Episodic Gout and other crystal arthropathies (20 sources) Gout; Translations: [Gout, unspecified] Onset: 2 Resolved: 3 Chronic Hypertension with complications and secondary hypertension (20 sources) Chronic kidney disease due to hypertension; Translations: [Hypertensive chronic kidney disease with stage 1 through stage 4 chronic kidney disease, or unspecified chronic kidney disease] Onset: 1 Resolved: 2 Chronic Intrauterine hypoxia and asphyxia (1 source) Metabolic acidemia, unspecified Episodic Nutritional deficiencies (8 sources) Vitamin D deficiency; Translations: [Vitamin D deficiency, unspecified] 01-20-2019 Chronic Other aftercare (2 sources) Encounter for aftercare following kidney transplant; Translations: [Encounter for aftercare following kidney transplant] Onset: 3 Chronic Other circulatory disease (7 sources) Acquired arteriovenous fistula aneurysm; Translations: [Arteriovenous fistula, acquired] Chronic Other circulatory disease (1 source) Ecchymosis; Translations: [Hemorrhage, not elsewhere classified] 06-20-2022 Episodic Other circulatory disease (4 sources) Hemorrhage, not elsewhere classified; Translations: [Postoperative ecchymosis] 06-20-2022 Episodic Other connective tissue disease (5 sources) Pain in left arm; Translations: [Pain in left arm] 06-20-2022 Episodic Other diseases of kidney and ureters (20 sources) Secondary hyperparathyroidism; Translations: [Secondary hyperparathyroidism of renal origin] Onset: 4 01-19-2019 Chronic Other diseases of kidney and ureters (4 sources) Secondary hyperparathyroidism of renal origin; Translations: [SEC HYPERPARATHYROIDISM RENAL ORIGN] Onset: 2 Resolved: 2 Chronic Other female genital disorders (1 source) Pain in female genitalia on intercourse; Translations: [Unspecified dyspareunia] 08-02-2024 Chronic Other hematologic conditions (1 source) Elevated erythrocyte sedimentation rate; Translations: [Elevated erythrocyte sedimentation rate] Onset: 4 Episodic Other inflammatory condition of skin (8 sources) Pruritus of skin; Translations: [Pruritus, unspecified] 08-04-2019 Episodic Other non-traumatic joint disorders (6 sources) Polyarthropathy; Translations: [Polyarthritis, unspecified] Onset: 3 06-10-2023 Chronic Other nutritional; endocrine; and metabolic disorders (14 sources) Hyperuricemia; Translations: [Hyperuricemia without signs of inflammatory arthritis and tophaceous disease] Onset: 3 Resolved: 3 01-19-2019 Episodic Other screening for suspected conditions (not mental disorders or infectious disease) (2 sources) Encounter for screening for malignant neoplasm of colon; Translations: [Encounter for screening mammogram for malignant neoplasm of breast] Onset: 2 Resolved: 2 Episodic Other upper respiratory infections (2 sources) Acute pansinusitis; Translations: [Acute pansinusitis, unspecified] 07-27-2024 Episodic Ovarian cyst (5 sources) Unspecified ovarian cyst, left side; Translations: [Cyst of left ovary] Onset: 2 Episodic Residual codes; unclassified (6 sources) Obstructive sleep apnea syndrome; Translations: [Obstructive sleep apnea (adult) (pediatric)] Onset: 3 03-04-2023 Chronic Septicemia (except in labor) (9 sources) Sepsis; Translations: [Sepsis due to urinary tract infection] 08-03-2019 Episodic Unclassified (2 sources) Kidney Follow-up; Translations: [Kidney Follow-up] Onset: 4 Urinary tract infections (20 sources) Acute cystitis; Translations: [Urinary tract infectious disease] Onset: 4 05-15-2020 Episodic Past or Other Problems Problem Classification Problem Date Documented Da te Episodic/Chronic Diabetes mellitus without complication (8 sources) Impaired fasting glycemia; Translations: [Impaired fasting glucose] Onset: 03-04-2023 Resolved: 03-13-2023 03-13-2023 Episodic Fluid and electrolyte disorders (3 sources) Acidosis; Translations: [ACIDOSIS] Onset: 12-06-2021 Resolved: 05-02-2022 Episodic Genitourinary symptoms and ill-defined conditions (12 sources) Dysuria; Translations: [Dysuria] Onset: 03-15-2024 01-19-2019 Episodic Other aftercare (6 sources) Transplant follow-up; Translations: [Other fdc (current) drug therapy] Onset: 10-23-2022 06-10-2023 Episodic Other connective tissue disease (6 sources) Fibromyalgia; Translations: [Fibromyalgia] Onset: 03-04-2023 03-04-2023 Episodic Other non-traumatic joint disorders (1 source) Pain in unspecified joint; Translations: [Pain in unspecified joint] Onset: 11-06-2023 Episodic Otitis media and related conditions (1 source) Otitis media, unspecified, bilateral Onset: 04-30-2022 Resolved: 04-30-2022 Episodic Results Test Name Value Interpretation Reference Range Facility MM screening mammo BI w/CADo n 08-25-2024 MM screening mammo BI w/CAD [facility] [place] [address] Mammography Report Signed Patient: Mandeep Puri MR#: [id number] 15 : 1975 Acct:[id number] Age/Sex: 48 / F ADM Date: 08/25/24 Loc: ID Room: Type: [facility] Attending Dr: Blake Hinojosa DO Copies to: DO Blake Pederson DO Ordering Provider: Blake Hinojosa DO Date of Service: 08/25/24 MM/MM screening mammo BI w/CAD: SCREENING CLINICAL DATA: Screening for malignancy. SCREENING MAMMOGRAM - FULL FIELD DIGITAL WITH TOMOSYNTHESIS AND CAD COMPARISON:Mammograms dating back to 2019 Tomosynthesis craniocaudal and mediolateral oblique views of both breasts were obtained using low- dose digital technique. This examination was reviewed with the aid of CAD. FINDINGS: The breast tissue is composed of scattered [...] mammogram. Impression dictated by: Evan Messina Jr., D.OSon08/25/2024 3:24 PM Dictation Location: [facility] Transcribed By: SALMA 08/25/24 1524 Dictated By: Evan Messina Jr, DO 08/25/24 1523 Signed By: 08/25/24 1524 Normal [facility] Mammography reportOrdered By : Evan Messina on 08-25-2024 Diagnostic imaging study [facility] [place] [address] [place] [address] Mammography Report Signed Patient: Mandeep Puri MR#: [id number] : 1975 Acct:[id number] Age/Sex: 48 / F ADM Date: 4 Loc: ID Room: Type: [facility] Attending Dr: Blake Hinojosa DO Copies to: DO Blake Pederson DO~ Ordering Provider: Blake Hinojosa DO Date of Service: 08/25/24 MM/MM screening mammo BI w/CAD: SCREENING CLINICAL DATA: Screening for malignancy. SCREENING MAMMOGRAM - FULL FIELD DIGITAL WITH TOMOSYNTHESIS AND CAD COMPARISON:Mammograms dating back to 2019 Tomosynthesis craniocaudal and mediolateral oblique views of both breasts were obtained using low-dose digital technique. This examination was reviewed with the aid of CAD. FINDINGS: The breast tissue is composed of scattered [...] mammogram. Impression dictated by: Evan Messina Jr., D.O.08/25/2024 3:24 PM Dictation Location: [facility] Transcribed By: SALMA 08/25/241523 Dictated By: Evan Messina Jr, DO 08/25/24 152 Signed By: 08/25/24 152 [facility] [place] 125on 08-03-2024 CANCER ANTIGEN 125 12.9 0.0 - 38.1 [facility] Comment on above: [facility] El ectrochemiluminescence Immunoassay (ECLIA) Values obtained with different assay methods or kits cannot be used interchangeably. Results cannot be interpreted as absolute evidence of the presence or absence of malignant disease. Performed at: [address] [id number] Drill Runner: Gabriel Whitman PhD, Phone: [phone] [facility] 24 hour urine albumin/total protein ratio by electrophoresisOrdered By: Jesus Ayala on 08-02-2024 Albumin Elph (24H U) [Mass fraction] Albumin/Protein.total in 24 hour Urine by Electrophoresis . [facility] 24 hour urine gamma globulin /total protein ratio by electrophoresisOrdered By: Jesus Ayala on 08-02-2024 Gamma globulin Elph (24H U) [Mass fraction] Gamma globulin/Protein.total in 24 hour Urine by Electrophoresis . [facility] 24 hour urine protein monocl onal/total protein by electrophoresisOrdered By: Jesus Ayala on 08-02-2024 Protein.monoclonal Elph (24H U) [Mass fraction] Protein.monoclonal/Prote in.total in 24 hour Urine by Electrophoresis Not Observed [facility] Alanine aminotransferase [En zymatic activity/volume] in Serum or PlasmaOrdered By: Jesus Ayala on 08-02-2024 ALT [Catalytic activity/Vol] 11 U/L Normal 7-52 [facility] Comment on above: Performed By: #### U PE RAND, CAMILLA,URINE, ALDOLASE, SPE, CAMILLA SERUM #### [facility] , #### ADDONUAPLUS, T4F, ESR, CMP, CK, CBC, CRP, TSH3 #### [facility] [address] ALT [Catalytic activity/Vol] Alanine aminotransferase [Enzymatic activity/volume] in Serum or Plasma [facility] Albumin [Mass/volume] in Ser um or Plasma by Bromocresol green (BCG) dye binding methoOrdered By: Jesus Ayala on 08-02-2024 Albumin BCG dye [Mass/Vol] 4.3 g/dL 3.5-5.7 [facility] Albumin BCG dye [Mass/Vol] Albumin [Mass/volume] in Serum or Plasma by Bromocresol green (BCG) dye binding metho 3.5-5.7 [facility] Aldolaseon 08-02-2024 Aldolase 3.5 U/L Normal 3.3-10.3 [facility] Comment on above: Result Comment: Perf ormed at: CB - [facility] [address] [id number] Drill Runner: Gabriel Whitman PhD, Phone: [phone] PERFORMED BY: [place] [address] PATHOLOGIST BLENDER/BRAZE APPLICATOR ANAHY MCKEE M.D. Performed By: #### U PE RAND, CAMILLA,URINE, ALDOLASE, SPE, CAMILLA SERUM ####[facility] ,#### ADDONUAPLUS, T4F, ESR, CMP, CK, CBC, CRP, TSH3 ####[facility] Alkaline phosphatase [Enzyma tic activity/volume] in Serum or PlasmaOrdered By: Jesus Ayala on 08-02-2024 ALP [Catalytic activity/Vol] 87 U/L Normal 34-104 [facility] Comment on above: Performed By: #### U PE RAND, CAMILLA,URINE, ALDOLASE, SPE, CAMILLA SERUM #### [facility] , #### ADDONUAPLUS, T4F, ESR, CMP, CK, CBC, CRP, TSH3 #### [address] ALP [Catalytic activity/Vol] Alkaline phosphatase [Enzymatic activity/volume] in Serum or Plasma 34-104 [facility] Appearance of UrineOrdered B y: Jesus Ayala on 08-02-2024 Appearance (U) Urine appearance Clear [facility] Aspartate aminotransferase [ Enzymatic activity/volume] in Serum or PlasmaOrdered By: Jesus Ayala on 08-02-2024 AST [Catalytic activity/Vol] 13 U/L Normal 13-39 [facility] Comment on above: Performed By: #### U PE RAND, CAMILLA,URINE, ALDOLASE, SPE, CAMILLA SERUM #### [facility] , #### ADDONUAPLUS, T4F, ESR, CMP, CK, CBC, CRP, TSH3 #### [facility] [address] AST [Catalytic activity/Vol] Aspartate aminotransferase [Enzymatic activity/volume] in Serum or Plasma [facility] Automated basophil %Ordered By: Jesus Ayala on 08-02-2024 Basophils/100 WBC (Bld) 0.6 % Normal . [facility] Comment on above: Performed By: #### U PE RAND, CAMILLA,URINE, ALDOLASE, SPE, CAMILLA SERUM #### [facility] , #### ADDONUAPLUS, T4F, ESR, CMP, CK, CBC, CRP, TSH3 #### [facility] [address] [place] [address] Automated basophil countOrde red By: Jesus Ayala on 08-02-2024 Basophils (Bld) [#/Vol] 0.0 10*3/uL Normal 0.0-0.2 [facility] Comment on above: Performed By: #### U PE RAND, CAMILLA,URINE, ALDOLASE, SPE, CAMILLA SERUM #### [facility] , #### ADDONUAPLUS, T4F, ESR, CMP, CK, CBC, CRP, TSH3 #### [facility] [address] [place] [address] Automated blood monocyte cou ntOrdered By: Jesus Gruberrow on 08-02-2024 Monocytes (Bld) [#/Vol] 0.4 10*3/uL Normal 0.0-0.8 [facility] Comment on above: Performed By: #### U PE RAND, CAMILLA,URINE, ALDOLASE, SPE, CAMILLA SERUM #### [facility] , #### ADDONUAPLUS, T4F, ESR, CMP, CK, CBC, CRP, TSH3 #### [facility] [address] Automated eosinophil %Ordere d By: Jesus Jamie on 08-02-2024 Eosinophils/100 WBC (Bld) 3.0 % Normal . [facility] Comment on above: Performed By: #### U PE RAND, CAMILLA,URINE, ALDOLASE, SPE, CAMILLA SERUM #### [facility] , #### ADDONUAPLUS, T4F, ESR, CMP, CK, CBC, CRP, TSH3 #### [address] Automated eosinophil countOr dered By: Jesushelio Ayala on 08-02-2024 Eosinophils (Bld) [#/Vol] 0.2 10*3/uL Normal 0.0-0.45 [facility] Comment on above: Performed By: #### U PE RAND, CAMILLA,URINE, ALDOLASE, SPE, CAMILLA SERUM #### [facility] , #### ADDONUAPLUS, T4F, ESR, CMP, CK, CBC, CRP, TSH3 #### [address] Automated epithelial cells c ount in urine sediment (number/area)Ordered By: Jesus Ayala on 08-02-2024 Epithelial cells Auto (Urine sed) [#/Area] 5-9 [HPF] High 0-2 [facility] Epithelial cells Auto (Urine sed) [#/Area] Automated epithelial cells count in urine sediment (number/area) High 0-2 [facility] Automated erythrocytes count in urine sediment (number/area)Ordered By: Jesus Ayala on 08-02-2024 RBC Auto (Urine sed) [#/Area] Erythrocytes [#/area] in Urine sediment by Automated count 0-4 [facility] Automated leukocytes count i n urine sediment (number/area)Ordered By: Jesus Ayala on 08-02-2024 WBC Auto (Urine sed) [#/Area] Leukocytes [#/area] in Urine sediment by Automated count 0-4 [facility] Automated monocyte %Ordered By: Jesus Ayala on 08-02-2024 Monocytes/100 WBC (Bld) 4.5 % Normal . [facility] Comment on above: Performed By: #### U PE RAND, CAMILLA,URINE, ALDOLASE, SPE, CAMILLA SERUM #### [facility] , #### ADDONUAPLUS, T4F, ESR, CMP, CK, CBC, CRP, TSH3 #### [facility] [address] Automated neutrophil %Ordere d By: Jesus Ayala on 08-02-2024 Neutrophils/100 WBC (Bld) 76.9 % Normal . [facility] Comment on above: Performed By: #### U PE RAND, CAMILLA,URINE, ALDOLASE, SPE, CAMILLA SERUM #### [facility] , #### ADDONUAPLUS, T4F, ESR, CMP, CK, CBC, CRP, TSH3 #### [facility] [address] Bacteria [Presence] in Urine by AutomatedOrdered By: Jesus Ayala on 08-02-2024 Bacteria Auto Ql (U) None seen [HPF] None Seen [facility] Basophils Auto (Bld) [#/Vol] Ordered By: Jesus Ayala on 08-02-2024 Basophils (Bld) [#/Vol] Automated basophil count 0.0-0.2 [facility] Basophils/100 WBC Auto (Bld) Ordered By: Jesus Ayala on 08-02-2024 Basophils/100 WBC (Bld) Automated basophil % . [facility] Bilirubin Test strip Ql (U)O rdered By: Jesus Ayala on 08-02-2024 Bilirubin Ql (U) Negative Negative [facility] Bilirubin Ql (U) Bilirubin.total [Presence] in Urine by Test strip Negative [facility] Bilirubin.total [Mass/volume ] in Serum or PlasmaOrdered By: Jesus Ayala on 08-02-2024 Bilirubin [Mass/Vol] 0.3 mg/dL Normal 0.3-1.0 [facility] Comment on above: Performed By: #### U PE RAND, CAMILLA,URINE, ALDOLASE, SPE, CAMILLA SERUM #### [facility] , #### ADDONUAPLUS, T4F, ESR, CMP, CK, CBC, CRP, TSH3 #### [facility] [address] Bilirubin [Mass/Vol] Bilirubin.total [Mass/volume] in Serum or Plasma 0.3-1.0 [facility] C reactive protein [Mass/vol ume] in Serum or PlasmaOrdered By: Jesus Ayala on 08-02-2024 CRP [Mass/Vol] 1.7 mg/dL High 0.0-0.5 [facility] CRP [Mass/Vol] C reactive protein [Mass/volume] in Serum or Plasma High 0.0-0.5 [facility] C-Reactive Proteinon 024 C-Reactive Protein 1.7 mg/dL High 0.0-0.5 [facility] Comment on above: Performed By: #### U PE RAND, CAMILLA,URINE, ALDOLASE, SPE, CAMILLA SERUM #### [facility] , #### ADDONUAPLUS, T4F, ESR, CMP, CK, CBC, CRP, TSH3 #### [facility] [address] [place] [address] [place] CARCINOEMBRYONIC ANTIGENon 1 [facility] CEA ser/plasOrdered By: Gustavo Hinojosa on 08-02-2024 Carcinoembryonic Ag [Mass/Vol] Serum or plasma carcinoembryonic antigen measurement (mass/volume) 0.0-3.0 [facility] Comment on above: Serial tumor marker results determined by assays using different manufacturers or methods may not be comparable.[facility] belly dump driver and method:RUSSELL UNICEL DXI, 2 SITE IMMUNOENZYMATIC SANDWICH ASSAY. Calcium [Mass/volume] in Ser um or PlasmaOrdered By: Jesus Ayala on 08-02-2024 Calcium [Mass/Vol] 9.8 mg/dL Normal 8.6-10.3 [facility] Comment on above: Performed By: #### U PE RAND, CAMILLA,URINE, ALDOLASE, SPE, CAMILLA SERUM #### [facility] , #### ADDONUAPLUS, T4F, ESR, CMP, CK, CBC, CRP, TSH3 #### [facility] [address] Calcium [Mass/Vol] Calcium [Mass/volume ] in Serum or Plasma 8.6-10.3 [facility] Cancer Antigen 125on 024 Cancer Antigen 125 12.9 Normal 0.0-38.1 [facility] Comment on above: Result Comment: [employer] [employer] Electrochemiluminescence Immunoassay (ECLIA) Values obtained with different assay methods or kits cannot be used interchangeably. Results cannot be interpreted as absolute evidence of the presence or absence of malignant disease. Performed at: [facility] [place] [id number] Drill Runner: Gabriel Whitman PhD, Phone: [phone] PERFORMED BY: [place] [address] PATHOLOGIST BLENDER/BRAZE APPLICATOR ANAHY MCKEE M.D. Performed By: #### C A125 ####[facility] ,#### CEA ####[place] [id number] [address] Carbon dioxide, total [Moles /volume] in Serum or PlasmaOrdered By: Jesus Ayala on 08-02-2024 CO2 [Moles/Vol] 24.6 mmol/L Normal 21.0-31.0 [facility] Comment on above: Performed By: #### U PE RAND, CAMILLA,URINE, ALDOLASE, SPE, CAMILLA SERUM #### [facility] , #### ADDONUAPLUS, T4F, ESR, CMP, CK, CBC, CRP, TSH3 #### [facility] [address] CO2 [Moles/Vol] Carbon dioxide, tota l [Moles/volume] in Serum or Plasma 21.0-31.0 [facility] Chloride [Moles/volume] in S aislinn or PlasmaOrdered By: Jesus Jamie on 08-02-2024 Chloride [Moles/Vol] 105 mmol/L Normal 98-107 [facility] Comment on above: Performed By: #### U PE RAND, CAMILLA,URINE, ALDOLASE, SPE, CAMILLA SERUM #### [facility] , #### ADDONUAPLUS, T4F, ESR, CMP, CK, CBC, CRP, TSH3 #### [address] Chloride [Moles/Vol] Chloride [Moles/vol ume] in Serum or Plasma 98-107 [facility] Color Auto (U)Ordered By: Chan Ayala on 08-02-2024 Color (U) Color of Urine by Auto Yellow Fi [facility] Color of Urine by AutoOrdere d By: Jesus Gruberrow on 08-02-2024 Color (U) Light-yellow Normal Yellow [facility] Comment on above: Order Comment: Name Collection Type:: Clean-Voided Midstream Performed By: #### U PE RAND, CAMILLA,URINE, ALDOLASE, SPE, CAMILLA SERUM #### [facility] , #### ADDONUAPLUS, T4F, ESR, CMP, CK, CBC, CRP, TSH3 #### [facility] [address] [place] [id number] [facility] Complete Blood Count Auto Di ffon 08-02-2024 Mean Corpuscular HGB Conc 33.5 g/dL Normal 32.0-35.0 [facility] Comment on above: Performed By: #### U PE RAND, CAMILLA,URINE, ALDOLASE, SPE, CAMILLA SERUM #### [facility] , #### ADDONUAPLUS, T4F, ESR, CMP, CK, CBC, CRP, TSH3 #### [address] NRBC% 0.1 /100{WBC} Normal 0-0.5 [facility] Comment on above: Performed By: #### U PE RAND, CAMILLA,URINE, ALDOLASE, SPE, CAMILLA SERUM #### [facility] , #### ADDONUAPLUS, T4F, ESR, CMP, CK, CBC, CRP, TSH3 #### [address] Comprehensive Metabolic Pane jonathan 08-02-2024 Albumin [Mass/Vol] 4.3 g/dL Normal 3.5-5.7 [facility] Comment on above: Performed By: #### U PE RAND, CAMILLA,URINE, ALDOLASE, SPE, CAMILLA SERUM #### [facility] , #### ADDONUAPLUS, T4F, ESR, CMP, CK, CBC, CRP, TSH3 #### [address] GFR/1.73 sq M.predicted MDRD (S/P/Bld) [Vol rate/Area] mL/min/{1.73_m2} Normal [facility] Comment on above: Performed By: #### U PE RAND, CAMILLA,URINE, ALDOLASE, SPE, CAMILLA SERUM #### [facility] , #### ADDONUAPLUS, T4F, ESR, CMP, CK, CBC, CRP, TSH3 #### [address] Creatine kinase [Enzymatic a ctivity/volume] in Serum or PlasmaOrdered By: Jesus Ayala on 08-02-2024 CK [Catalytic activity/Vol] 39 U/L Normal 30-223 [facility] Comment on above: Result Comment: PERF ORMED BY: [place] [address] PATHOLOGIST BLENDER/BRAZE APPLICATOR ANAHY MCKEE M.D. Performed By: #### U PE RAND, CAMILLA,URINE, ALDOLASE, SPE, CAMILLA SERUM #### [facility] , #### ADDONUAPLUS, T4F, ESR, CMP, CK, CBC, CRP, TSH3 #### [facility] [address] CK [Catalytic activity/Vol] Creatine kinase [Enzymatic activity/volume] in Serum or Plasma 30-223 [facility] Creatinine [Mass/volume] in Serum or PlasmaOrdered By: Jesus Ayala on 08-02-2024 Creatinine [Mass/Vol] 1.10 mg/dL Normal 0.60-1.20 [facility] Comment on above: Performed By: #### U PE RAND, CAMILLA,URINE, ALDOLASE, SPE, CAMILLA SERUM #### [facility] , #### ADDONUAPLUS, T4F, ESR, CMP, CK, CBC, CRP, TSH3 #### [facility] [address] [place] [address] Creatinine [Mass/Vol] Creatinine [Mass/v olume] in Serum or Plasma 0.60-1.20 [facility] Dipstick and Microscopicon 1 Bacteria,Urine None Seen Normal None Seen [facility] Comment on above: Order Comment: Name Collection Type:: Clean-Voided Midstream Performed By: #### U PE RAND, CAMILLA,URINE, ALDOLASE, SPE, CAMILLA SERUM #### [facility] , #### ADDONUAPLUS, T4F, ESR, CMP, CK, CBC, CRP, TSH3 #### [facility] [address] [place] [address] Bilirubin,Urine Negative Normal Negative [facility] Comment on above: Order Comment: Name Collection Type:: Clean-Voided Midstream Performed By: #### U PE RAND, CAMILLA,URINE, ALDOLASE, SPE, CAMILLA SERUM #### [facility] , #### ADDONUAPLUS, T4F, ESR, CMP, CK, CBC, CRP, TSH3 #### [facility] [address] [place] [address] Glucose Ql (U) 50 mg/dL High Normal [facility] Comment on above: Order Comment: Name Collection Type:: Clean-Voided Midstream Performed By: #### U PE RAND, CAMILLA,URINE, ALDOLASE, SPE, CAMILLA SERUM #### [facility] , #### ADDONUAPLUS, T4F, ESR, CMP, CK, CBC, CRP, TSH3 #### [address] Hyaline Casts,Urine 0-8 Normal 0-8 [facility] Comment on above: Order Comment: Name Collection Type:: Clean-Voided Midstream Result Comment: PERF ORMED BY: [place] [address] PATHOLOGIST BLENDER/BRAZE APPLICATOR ANAHY MCKEE M.D. Performed By: #### U PE RAND, CAMILLA,URINE, ALDOLASE, SPE, CAMILLA SERUM #### [facility] , #### ADDONUAPLUS, T4F, ESR, CMP, CK, CBC, CRP, TSH3 #### [address] Nitrite,Urine Negative Normal Negative [facility] Comment on above: Order Comment: Name Collection Type:: Clean-Voided Midstream Performed By: #### U PE RAND, CAMILLA,URINE, ALDOLASE, SPE, CAMILLA SERUM #### [facility] , #### ADDONUAPLUS, T4F, ESR, CMP, CK, CBC, CRP, TSH3 #### [address] Occult Blood,Urine Negative Normal Negative [facility] Comment on above: Order Comment: Name Collection Type:: Clean-Voided Midstream Performed By: #### U PE RAND, CAMILLA,URINE, ALDOLASE, SPE, CAMILLA SERUM #### [facility] , #### ADDONUAPLUS, T4F, ESR, CMP, CK, CBC, CRP, TSH3 #### [place] [id number] [place] Protein,Urine Negative Normal Negative [facility] Comment on above: Order Comment: Name Collection Type:: Clean-Voided Midstream Performed By: #### U PE RAND, CAMILLA,URINE, ALDOLASE, SPE, CAMILLA SERUM #### [facility] , #### ADDONUAPLUS, T4F, ESR, CMP, CK, CBC, CRP, TSH3 #### [address] RBC,Urine 3-4 Normal 0-4 [facility] Comment on above: Order Comment: Name Collection Type:: Clean-Voided Midstream Performed By: #### U PE RAND, CAMILLA,URINE, ALDOLASE, SPE, CAMILLA SERUM #### [facility] , #### ADDONUAPLUS, T4F, ESR, CMP, CK, CBC, CRP, TSH3 #### [address] Specificy [place],Urine 1.013 Normal 1.001-1.030 [facility] Comment on above: Order Comment: Name Collection Type:: Clean-Voided Midstream Performed By: #### U PE RAND, CAMILLA,URINE, ALDOLASE, SPE, CAMILLA SERUM #### [facility] , #### ADDONUAPLUS, T4F, ESR, CMP, CK, CBC, CRP, TSH3 #### [address] Squamous Epithelial Cell,Urine 5-9 High 0-2 [facility] Comment on above: Order Comment: Name Collection Type:: Clean-Voided Midstream Performed By: #### U PE RAND, CAMILLA,URINE, ALDOLASE, SPE, CAMILLA SERUM #### [facility] , #### ADDONUAPLUS, T4F, ESR, CMP, CK, CBC, CRP, TSH3 #### [address] Urobilinogen,Urine Normal Normal Normal [facility] Comment on above: Order Comment: Name Collection Type:: Clean-Voided Midstream Performed By: #### U PE RAND, CAMILLA,URINE, ALDOLASE, SPE, CAMILLA SERUM #### [facility] , #### ADDONUAPLUS, T4F, ESR, CMP, CK, CBC, CRP, TSH3 #### [facility] [address] WBC,Urine 3-4 Normal 0-4 [facility] Comment on above: Order Comment: Name Collection Type:: Clean-Voided Midstream Performed By: #### U PE RAND, CAMILLA,URINE, ALDOLASE, SPE, CAMILLA SERUM #### [facility] , #### ADDONUAPLUS, T4F, ESR, CMP, CK, CBC, CRP, TSH3 #### [facility] [address] [place] [address] Eosinophils Auto (Bld) [#/Vo l]Ordered By: Jesus Ayala on 08-02-2024 Eosinophils (Bld) [#/Vol] Automated eosinophil count 0.0-0.45 [facility] Eosinophils/100 WBC Auto (Bl d)Ordered By: Jesus Ayala on 08-02-2024 Eosinophils/100 WBC (Bld) Automated eosinophil % . [facility] Erythrocyte Sedimentation Ra mathieu 08-02-2024 ESR (Bld) [Velocity] 73 mm/h High 0-19 [facility] Comment on above: Result Comment: PERF ORMED BY: [facility] [address] [place] [address] PATHOLOGIST BLENDER/BRAZE APPLICATOR ANAHY MCKEE M.D. Performed By: #### U PE RAND, CAMILLA,URINE, ALDOLASE, SPE, CAMILLA SERUM ####[facility] ,#### ADDONUAPLUS, T4F, ESR, CMP, CK, CBC, CRP, TSH3 ####[facility] Erythrocyte distribution wid th Auto (RBC) [Ratio]Ordered By: Jesus Ayala on 08-02-2024 Erythrocyte distribution width (RBC) [Ratio] Erythrocyte distribution width [Ratio] by Automated count High 11.9-15.3 [facility] Erythrocyte distribution wid th [Ratio] by Automated countOrdered By: Jesus Ayala on 08-02-2024 Erythrocyte distribution width (RBC) [Ratio] 15.7 % High 11.9-15.3 [facility] Comment on above: Performed By: #### U PE RAND, CAMILLA,URINE, ALDOLASE, SPE, CAMILLA SERUM #### [facility] , #### ADDONUAPLUS, T4F, ESR, CMP, CK, CBC, CRP, TSH3 #### [facility] [address] Erythrocyte sedimentation ra te by Photometric methodOrdered By: Jesus Ayala on 08-02-2024 ESR Photometric method (Bld) [Velocity] 73 mm/hr High 0- [facility] ESR Photometric method (Bld) [Velocity] Erythrocyte sedimentation rate by Photometric method High 019 [facility] Erythrocytes [#/area] in Uri ne sediment by Automated countOrdered By: Jesus Ayala on 08-02-2024 RBC Auto (Urine sed) [#/Area] 3-4 [HPF] 0-4 [facility] Erythrocytes [#/volume] in B lood by Automated countOrdered By: Jesus Ayala on 08-02-2024 RBC (Bld) [#/Vol] 4.37 10*6/uL Normal 3.60-5.00 [facility] Comment on above: Performed By: #### U PE RAND, CAMILLA,URINE, ALDOLASE, SPE, CAMILLA SERUM #### [facility] , #### ADDONUAPLUS, T4F, ESR, CMP, CK, CBC, CRP, TSH3 #### [facility] [address] Globulin Calc (S) [Mass/Vol] Ordered By: Jesus Ayala on 08-02-2024 Globulin (S) [Mass/Vol] Serum globulin measurement by calculation (mass/volume) [facility] Glucose [Mass/volume] in Ser um or PlasmaOrdered By: Jesus Ayala on 08-02-2024 Glucose [Mass/Vol] 146 mg/dL [facility] 70-100 [facility] Comment on above: ADA recommended refe rence rangeRandom Glucose Reference Range is dependent on time and content of last meal. Glucose of more than 200 mg/dL in a nonstressed, ambulatory subject supports the diagnosis of Diabetes Mellitus. Result Comment: [place] om Glucose Reference Range is dependent on time and content of last meal. Glucose of more than 200 mg/dL in a nonstressed, ambulatory subject supports the diagnosis of Diabetes Mellitus. ADA recommended reference range Performed By: #### U PE RAND, CAMILLA,URINE, ALDOLASE, SPE, CAMILLA SERUM #### [facility] , #### ADDONUAPLUS, T4F, ESR, CMP, CK, CBC, CRP, TSH3 #### [address] Glucose [Mass/Vol] Glucose [Mass/volume ] in Serum or Plasma [facility] [address] [place] [address] Comment on above: ADA recommended refe rence rangeRandom Glucose Reference Range is dependent on time and content of last meal. Glucose of more than 200 mg/dL in a nonstressed, ambulatory subject supports the diagnosis of Diabetes Mellitus. Glucose [Mass/volume] in Uri ne by Test stripOrdered By: Jesus Ayala on 08-02-2024 Glucose Test strip (U) [Mass/Vol] 50 mg/dL [facility] Glucose Test strip (U) [Mass/Vol] Glucose [Mass/volume] in Urine by Test strip [facility] Hematocrit Auto (Bld) [Volum e fraction]Ordered By: Jesus Ayala on 08-02-2024 Hematocrit (Bld) [Volume fraction] Hematocrit [Volume Fraction] of Blood by Automated count 34.0-46.4 [facility] Hematocrit [Volume Fraction] of Blood by Automated countOrdered By: Jesus Ayala on 08-02-2024 Hematocrit (Bld) [Volume fraction] 37.0 % Normal 34.0-46.4 [facility] Comment on above: Performed By: #### U PE RAND, CAMILLA,URINE, ALDOLASE, SPE, CAMILLA SERUM #### [facility] , #### ADDONUAPLUS, T4F, ESR, CMP, CK, CBC, CRP, TSH3 #### [address] Hemoglobin Test strip Ql (U) Ordered By: Jesus Ayala on 08-02-2024 Hemoglobin Ql (U) Negative Negative [facility] Hemoglobin Ql (U) Hemoglobin [Presence ] in Urine by Test strip Negative [facility] Hemoglobin [Mass/volume] in BloodOrdered By: Jesus Ayala on 08-02-2024 Hemoglobin (Bld) [Mass/Vol] 12.4 g/dL Normal 11.8-15.4 [facility] Comment on above: Performed By: #### U PE RAND, CAMILLA,URINE, ALDOLASE, SPE, CAMILLA SERUM #### [facility] , #### ADDONUAPLUS, T4F, ESR, CMP, CK, CBC, CRP, TSH3 #### [address] Hemoglobin (Bld) [Mass/Vol] Hemoglobin [Mass/volume] in Blood 11.8-15.4 [facility] Immunofixation for UrineOrde red By: Jesus Gruberrow on 08-02-2024 Interpretation Immunofixation (U) [Interp] Immunofixation for Urine . [facility] Comment on above: No monoclonality det ected.Performed at: [facility] [id number] Director: Gabriel Whitman PhD, Phone: [phone] Immunofixation, (CAMILLA), Urine on 08-02-2024 Immunofixation, (CAMILLA), Urine Comment Normal . [facility] Comment on above: Result Comment: No m onoclonality detected. Performed at: [employer] [address] [id number] Drill Runner: Gabriel Whitman PhD, Phone: [phone] Performed By: #### U PE RAND, CAMILLA,URINE, ALDOLASE, SPE, CAMILLA SERUM ####[facility] ,#### ADDONUAPLUS, T4F, ESR, CMP, CK, CBC, CRP, TSH3 ####[place] [id number] [address] Immunofixation,Serumon 08-02 Immunofixation, Serum Comment Normal . [facility] Comment on above: Result Comment: No m onoclonality detected. Performed By: #### U PE RAND, CAMILLA,URINE, ALDOLASE, SPE, CAMILLA SERUM ####[facility] ,#### ADDONUAPLUS, T4F, ESR, CMP, CK, CBC, CRP, TSH3 ####[place] [id number] [address] Immunoglobulin A, Serum 136 mg/dL Normal 87-352 T [facility] Comment on above: Performed By: #### U PE RAND, CAMILLA,URINE, ALDOLASE, SPE, CAMILLA SERUM ####[facility] ,#### ADDONUAPLUS, T4F, ESR, CMP, CK, CBC, CRP, TSH3 ####[address] Immunoglobulin G 1357 mg/dL Normal [phone] [facility] Comment on above: Performed By: #### U PE RAND, CAMILLA,URINE, ALDOLASE, SPE, CAMILLA SERUM ####[facility] ,#### ADDONUAPLUS, T4F, ESR, CMP, CK, CBC, CRP, TSH3 ####[place] [id number] [facility] Immunoglobulin M, Serum 94 mg/dL Normal 26-217 T [facility] Comment on above: Result Comment: Perf ormed at: - [facility] [address] [id number] Drill Runner: Gabriel Whitman PhD, Phone: [phone] Performed By: #### U PE RAND, CAMILLA,URINE, ALDOLASE, SPE, CAMILLA SERUM ####[facility] ,#### ADDONUAPLUS, T4F, ESR, CMP, CK, CBC, CRP, TSH3 ####[facility] [address] Ketones Test strip Ql (U)Ord ered By: Jesus Ayala on 08-02-2024 Ketones Ql (U) Ketones [Presence] i n Urine by Test strip Negative [facility] Ketones [Presence] in Urine by Test stripOrdered By: Jesus Gruberrow on 08-02-2024 Ketones Ql (U) Negative Normal Negative [facility] Comment on above: Order Comment: Name Collection Type:: Clean-Voided Midstream Performed By: #### U PE RAND, CAMILLA,URINE, ALDOLASE, SPE, CAMILLA SERUM #### [facility] , #### ADDONUAPLUS, T4F, ESR, CMP, CK, CBC, CRP, TSH3 #### [facility] [address] Laboratory - UrinalysisOrder ed By: Jesus Jamie on 08-02-2024 Hyaline casts LM Ql (Urine sed) 0-8 [LPF] 0-8 [facility] Leukocyte esterase [Presence ] in Urine by Test stripOrdered By: Jesus Gruberrow on 08-02-2024 Leukocyte esterase Test strip Ql (U) Negative Normal Negative [facility] Comment on above: Order Comment: Name Collection Type:: Clean-Voided Midstream Performed By: #### U PE RAND, CAMILLA,URINE, ALDOLASE, SPE, CAMILLA SERUM #### [facility] , #### ADDONUAPLUS, T4F, ESR, CMP, CK, CBC, CRP, TSH3 #### [facility] [address] Leukocyte esterase Test strip Ql (U) Leukocyte esterase [Presence] in Urine by Test strip Negative [facility] Leukocytes [#/area] in Urine sediment by Automated countOrdered By: Jesus Jamie on 08-02-2024 WBC Auto (Urine sed) [#/Area] 3-4 [HPF] 0-4 [facility] Leukocytes [#/volume] correc noah for nucleated erythrocytes in Blood by Automated counOrdered By: Jesus Ayala on 08-02-2024 WBC corrected for nucl RBC Auto (Bld) [#/Vol] 7.8 10*3/uL 3.8-11.6 [facility] WBC corrected for nucl RBC Auto (Bld) [#/Vol] Leukocytes [#/volume] corrected for nucleated erythrocytes in Blood by Automated coun 3.8-11.6 [facility] Leukocytes [#/volume] in Blo od by Automated countOrdered By: Jesus Gruberrow on 08-02-2024 WBC (Bld) [#/Vol] 7.8 10*3/uL Normal 3.8-11.6 [facility] Comment on above: Performed By: #### U PE RAND, CAMILLA,URINE, ALDOLASE, SPE, CAMILLA SERUM #### [facility] , #### ADDONUAPLUS, T4F, ESR, CMP, CK, CBC, CRP, TSH3 #### [facility] [address] [place] [address] [place] Lymphocytes Auto (Bld) [#/Vo l]Ordered By: Jesus Jamie on 08-02-2024 Lymphocytes (Bld) [#/Vol] Lymphocytes [#/volume] in Blood by Automated count 1.00-4.8 [facility] Lymphocytes [#/volume] in Bl ood by Automated countOrdered By: Jesus Gruberrow on 08-02-2024 Lymphocytes (Bld) [#/Vol] 1.2 10*3/uL Normal 1.00-4.8 [facility] Comment on above: Performed By: #### U PE RAND, CAMILLA,URINE, ALDOLASE, SPE, CAMILLA SERUM #### [facility] , #### ADDONUAPLUS, T4F, ESR, CMP, CK, CBC, CRP, TSH3 #### [facility] [address] [place] [address] [place] Lymphocytes/100 WBC Auto (Bl d)Ordered By: Jesus Ayala on 08-02-2024 Lymphocytes/100 WBC (Bld) Lymphocytes/100 leukocytes in Blood by Automated count . [facility] Lymphocytes/100 leukocytes i n Blood by Automated countOrdered By: Jesus Ayala on 08-02-2024 Lymphocytes/100 WBC (Bld) 15.0 % Normal . [facility] Comment on above: Performed By: #### U PE RAND, CAMILLA,URINE, ALDOLASE, SPE, CAMILLA SERUM #### [facility] , #### ADDONUAPLUS, T4F, ESR, CMP, CK, CBC, CRP, TSH3 #### [facility] [address] MCH Auto (RBC) [Entitic mass ]Ordered By: Jesus Ayala on 08-02-2024 MCH (RBC) [Entitic mass] MCH [Entitic mass] by Automated count 24.7-34.3 [facility] MCH [Entitic mass] by Automa noah countOrdered By: Jesus Ayala on 08-02-2024 MCH (RBC) [Entitic mass] 28.3 pg Normal 24.7-34.3 [facility] Comment on above: Performed By: #### U PE RAND, CAMILLA,URINE, ALDOLASE, SPE, CAMILLA SERUM #### [facility] , #### ADDONUAPLUS, T4F, ESR, CMP, CK, CBC, CRP, TSH3 #### [facility] [address] [place] [address] MCHC Auto (RBC) [Mass/Vol]Or dered By: Jesus Ayala on 08-02-2024 MCHC (RBC) [Mass/Vol] 33.5 g/dL 32.0-35.0 [facility] MCHC (RBC) [Mass/Vol] MCHC [Mass/volume] by Automated count 32.0-35.0 [facility] MCV Auto (RBC) [Entitic vol] Ordered By: Jesus Ayala on 08-02-2024 MCV (RBC) [Entitic vol] MCV [Entitic vol ume] by Automated count 80-100 [facility] MCV [Entitic volume] by Auto mated countOrdered By: Jesus Ayala on 08-02-2024 MCV (RBC) [Entitic vol] 84.6 fL Normal 80-100 [facility] Comment on above: Performed By: #### U PE RAND, CAMILLA,URINE, ALDOLASE, SPE, CAMILLA SERUM #### [facility] , #### ADDONUAPLUS, T4F, ESR, CMP, CK, CBC, CRP, TSH3 #### [facility] [address] [place] [address] [place] Monocytes Auto (Bld) [#/Vol] Ordered By: Jesus Ayala on 08-02-2024 Monocytes (Bld) [#/Vol] Automated blood monocyte count 0.0-0.8 [facility] Monocytes/100 WBC Auto (Bld) Ordered By: Jesus Ayala on 08-02-2024 Monocytes/100 WBC (Bld) Automated monocyte % . [facility] Neutrophils Auto (Bld) [#/Vo l]Ordered By: Jesus Ayala on 08-02-2024 Neutrophils (Bld) [#/Vol] Neutrophils [#/volume] in Blood by Automated count 1.8-7.7 [facility] Neutrophils [#/volume] in Bl ood by Automated countOrdered By: Jesus Ayala on 08-02-2024 Neutrophils (Bld) [#/Vol] 6.0 10*3/uL Normal 1.8-7.7 [facility] Comment on above: Performed By: #### U PE RAND, CAMILLA,URINE, ALDOLASE, SPE, CAMILLA SERUM #### [facility] , #### ADDONUAPLUS, T4F, ESR, CMP, CK, CBC, CRP, TSH3 #### [facility] [address] [place] [address] [place] Neutrophils/100 WBC Auto (Bl d)Ordered By: Jesus Ayala on 08-02-2024 Neutrophils/100 WBC (Bld) Automated neutrophil % . [facility] Nitrite Test strip Ql (U)Ord ered By: Jesus Ayala on 08-02-2024 Nitrite Ql (U) Negative Negative [facility] Nitrite Ql (U) Nitrite [Presence] i n Urine by Test strip Negative [facility] No Panel InformationOrdered By: Jesus Ayala on 08-02-2024 Estimated GFR (CKD-EPI) > 60.0 mL/Min [facility] Creatinine Clearance (Chem N/A [facility] Protein Electrophoresis M-Maury Not observed g/dL Not Observed [facility] Protein Electrophoresis Note Comment . [facility] Comment on above: Protein electrophore sis scan will follow via computer,mail, or envelope adjuster delivery.Performed at: [address] [id number] Director: Gabriel Whitman PhD, Phone: [phone] Urine Random Prot Electrophor Note Comment . [facility] Comment on above: Protein electrophore sis scan will follow via computer,mail, or envelope adjuster delivery. Nucleated erythrocytes [Pres ence] in Blood by Automated countOrdered By: Jesus Ayala on 08-02-2024 Nucleated RBC Auto Ql (Bld) 0.1 /100{WBC} 0-0.5 [facility] Nucleated RBC Auto Ql (Bld) Nucleated erythrocytes [Presence] in Blood by Automated count 0-0.5 [facility] Platelet mean volume Auto (B ld) [Entitic vol]Ordered By: eJsus Ayala on 08-02-2024 Platelet mean volume (Bld) [Entitic vol] Platelet mean volume [Entitic volume] in Blood by Automated count 6.3-10.7 [facility] Platelet mean volume [Entiti c volume] in Blood by Automated countOrdered By: Jesus Ayala on 08-02-2024 Platelet mean volume (Bld) [Entitic vol] 6.6 fL Normal 6.3-10.7 [facility] Comment on above: Performed By: #### U PE RAND, CAMILLA,URINE, ALDOLASE, SPE, CAMILLA SERUM #### [facility] , #### ADDONUAPLUS, T4F, ESR, CMP, CK, CBC, CRP, TSH3 #### [facility] [address] Platelets Auto (Bld) [#/Vol] Ordered By: Jesus Ayala on 08-02-2024 Platelets (Bld) [#/Vol] Platelets [#/vol ume] in Blood by Automated count 150-450 [facility] Platelets [#/volume] in Bloo d by Automated countOrdered By: Jesus Ayala on 08-02-2024 Platelets (Bld) [#/Vol] 439 10*3/uL Normal 150-450 [facility] Comment on above: Performed By: #### U PE RAND, CAMILLA,URINE, ALDOLASE, SPE, CAMILLA SERUM #### [facility] , #### ADDONUAPLUS, T4F, ESR, CMP, CK, CBC, CRP, TSH3 #### [facility] [address] [place] [address] [place] Potassium [Moles/volume] in Serum or PlasmaOrdered By: Jesus Ayala on 08-02-2024 Potassium [Moles/Vol] 3.8 mmol/L Normal 3.5-5.1 [facility] Comment on above: Performed By: #### U PE RAND, CAMILLA,URINE, ALDOLASE, SPE, CAMILLA SERUM #### [facility] , #### ADDONUAPLUS, T4F, ESR, CMP, CK, CBC, CRP, TSH3 #### [facility] [address] [place] [address] [place] Potassium [Moles/Vol] Potassium [Moles/v olume] in Serum or Plasma 3.5-5.1 [facility] Protein Electro, Random Urin yonis 08-02-2024 Albumin, Urine 36.1 % Normal . [facility] Comment on above: Performed By: #### U PE RAND, CAMILLA,URINE, ALDOLASE, SPE, CAMILLA SERUM ####[facility] ,#### ADDONUAPLUS, T4F, ESR, CMP, CK, CBC, CRP, TSH3 ####[facility] [address] [place] [address] [place] Mkdch-7-Jbhshuhv, Urine 4.1 % Normal . Libertad ibanez [facility] Comment on above: Performed By: #### U PE RAND, CAMILLA,URINE, ALDOLASE, SPE, CAMILLA SERUM ####[facility] ,#### ADDONUAPLUS, T4F, ESR, CMP, CK, CBC, CRP, TSH3 ####[address] Ttudi-8-Zvzcazdm, Urine 18.4 % Normal . [facility] Comment on above: Performed By: #### U PE RAND, CAMILLA,URINE, ALDOLASE, SPE, CAMILLA SERUM ####[facility] ,#### ADDONUAPLUS, T4F, ESR, CMP, CK, CBC, CRP, TSH3 ####[address] Beta Globulin, Urine 24.3 % Normal . [facility] Comment on above: Performed By: #### U PE RAND, CAMILLA,URINE, ALDOLASE, SPE, CAMILLA SERUM ####[facility] ,#### ADDONUAPLUS, T4F, ESR, CMP, CK, CBC, CRP, TSH3 ####[address] Gamma Globulin, Urine 17.1 % Normal . [facility] Comment on above: Performed By: #### U PE RAND, CAMILLA,URINE, ALDOLASE, SPE, CAMILLA SERUM ####[facility] ,#### ADDONUAPLUS, T4F, ESR, CMP, CK, CBC, CRP, TSH3 ####[address] M-Maury % Not Observed Normal Not Observed [facility] Comment on above: Performed By: #### U PE RAND, CAMILLA,URINE, ALDOLASE, SPE, CAMILLA SERUM ####[facility] ,#### ADDONUAPLUS, T4F, ESR, CMP, CK, CBC, CRP, TSH3 ####[address] Please Note: Comment Normal . [facility] Comment on above: Result Comment: Prot ein electrophoresis scan will follow via computer, mail, or envelope adjuster delivery. PERFORMED BY: [facility] [address] [place] [id number] PATHOLOGIST BLENDER/BRAZE APPLICATOR ANAHY MCKEE M.D. Performed By: #### U PE RAND, CAMILLA,URINE, ALDOLASE, SPE, CAMILLA SERUM ####[facility] ,#### ADDONUAPLUS, T4F, ESR, CMP, CK, CBC, CRP, TSH3 ####[address] Protein (U) [Mass/Vol] 9.0 mg/dL Normal Not Estab. Th e [facility] Comment on above: Performed By: #### U PE RAND, CAMILLA,URINE, ALDOLASE, SPE, CAMILLA SERUM ####[facility] ,#### ADDONUAPLUS, T4F, ESR, CMP, CK, CBC, CRP, TSH3 ####[address] Protein Electrophoresis, Ser umon 08-02-2024 Albumin [Mass/Vol] 3.9 g/dL Normal 2.9-4.4 [facility] Comment on above: Performed By: #### U PE RAND, CAMILLA,URINE, ALDOLASE, SPE, CAMILLA SERUM ####[facility] ,#### ADDONUAPLUS, T4F, ESR, CMP, CK, CBC, CRP, TSH3 ####[place] [id number] [facility] Albumin/Globulin [Mass ratio] 1.1 {ratio} Normal 0.7-1.7 [facility] Comment on above: Performed By: #### U PE RAND, CAMILLA,URINE, ALDOLASE, SPE, CAMILLA SERUM ####[facility] ,#### ADDONUAPLUS, T4F, ESR, CMP, CK, CBC, CRP, TSH3 ####[place] [id number] [facility] Zbzds-2-Wdhplozn 0.2 g/dL Normal 0.0-0.4 [facility] Comment on above: Performed By: #### U PE RAND, CAMILLA,URINE, ALDOLASE, SPE, CAMILLA SERUM ####[facility] ,#### ADDONUAPLUS, T4F, ESR, CMP, CK, CBC, CRP, TSH3 ####[address] Pgvkf-3-Fequdvlg 1.0 g/dL Normal 0.4-1.0 [facility] Comment on above: Performed By: #### U PE RAND, CAMILLA,URINE, ALDOLASE, SPE, CAMILLA SERUM ####[facility] ,#### ADDONUAPLUS, T4F, ESR, CMP, CK, CBC, CRP, TSH3 ####[address] Beta Globulin 1.2 g/dL Normal 0.7-1.3 [facility] Comment on above: Performed By: #### U PE RAND, CAMILLA,URINE, ALDOLASE, SPE, CAMILLA SERUM ####[facility] ,#### ADDONUAPLUS, T4F, ESR, CMP, CK, CBC, CRP, TSH3 ####[address] Gamma Globulin 1.3 g/dL Normal 0.4-1.8 [facility] Comment on above: Performed By: #### U PE RAND, CAMILLA,URINE, ALDOLASE, SPE, CAMILLA SERUM ####[facility] ,#### ADDONUAPLUS, T4F, ESR, CMP, CK, CBC, CRP, TSH3 ####[place] [id number] [place] Globulin (S) [Mass/Vol] 3.6 g/dL Normal 2.2-3.9 [facility] Comment on above: Performed By: #### U PE RAND, CAMILLA,URINE, ALDOLASE, SPE, CAMILLA SERUM ####[facility] ,#### ADDONUAPLUS, T4F, ESR, CMP, CK, CBC, CRP, TSH3 ####[address] M-Maury Not Observed Normal Not Observed [facility] Comment on above: Performed By: #### U PE RAND, CAMILLA,URINE, ALDOLASE, SPE, CAMILLA SERUM ####[facility] ,#### ADDONUAPLUS, T4F, ESR, CMP, CK, CBC, CRP, TSH3 ####[address] SPE-Note Comment Normal . [facility] Comment on above: Result Comment: Prot ein electrophoresis scan will follow via computer, mail, or envelope adjuster delivery. Performed at: [address] [id number] Drill Runner: Gabriel Whitman PhD, Phone: [phone] PERFORMED BY: [facility] [address] [place] [address] PATHOLOGIST BLENDER/BRAZE APPLICATOR ANAHY MCKEE M.D. Performed By: #### U PE RAND, CAMILLA,URINE, ALDOLASE, SPE, CAMILLA SERUM ####[facility] ,#### ADDONUAPLUS, T4F, ESR, CMP, CK, CBC, CRP, TSH3 ####[address] Protein Test strip (U) [Mass /Vol]Ordered By: Jesus Ayala on 08-02-2024 Protein (U) [Mass/Vol] Negative Negative [facility] Protein (U) [Mass/Vol] Protein [Mass/vol ume] in Urine by Test strip Negative [facility] Protein [Mass/volume] in Ser um or PlasmaOrdered By: Jesus Ayala on 08-02-2024 Protein [Mass/Vol] 7.5 g/dL Normal 6.0-8.5 [facility] Comment on above: Performed By: #### U PE RAND, CAMILLA,URINE, ALDOLASE, SPE, CAMILLA SERUM #### [facility] , #### ADDONUAPLUS, T4F, ESR, CMP, CK, CBC, CRP, TSH3 #### [facility] [address] Performed By: #### U PE RAND, CAMILLA,URINE, ALDOLASE, SPE, CAMILLA SERUM ####[facility] ,#### ADDONUAPLUS, T4F, ESR, CMP, CK, CBC, CRP, TSH3 ####[facility] [address] [place] [address] Protein [Mass/Vol] Protein [Mass/volume ] in Serum or Plasma 6.0-8.5 [facility] RBC Auto (Bld) [#/Vol]Ordere d By: Jesus Ayala on 08-02-2024 RBC (Bld) [#/Vol] Erythrocytes [#/volu me] in Blood by Automated count 3.60-5.00 [facility] Serum aldolase measurementOr dered By: Jesus Ayala on 08-02-[address] biopsy 3.3-10.3 [facility] Comment on above: Performed at: - [address] Director: Gabriel Whitman PhD, Phone: [phone] Serum globulin measurement ( mass/volume)Ordered By: Jesus Ayala on 08-02-2024 Globulin (S) [Mass/Vol] Serum globulin measurement (mass/volume) 2.2-3.9 [facility] Serum globulin measurement b y calculation (mass/volume)Ordered By: Jesus Ayala on 08-02-2024 Globulin (S) [Mass/Vol] 3.2 g/dL Normal [facility] Comment on above: Performed By: #### U PE RAND, CAMILLA,URINE, ALDOLASE, SPE, CAMILLA SERUM #### [facility] , #### ADDONUAPLUS, T4F, ESR, CMP, CK, CBC, CRP, TSH3 #### [facility] [address] Serum immunofixation electro phoresisOrdered By: Jesus Ayala on 08-02-2024 Serum Immunofixation Comment . [facility] Comment on above: No monoclonality det ected. Serum or plasma IgA measurem ent (mass/volume)Ordered By: Jesus Ayala on 08-02-2024 IgA [Mass/Vol] IgA [Mass/volume] in Serum or Plasma 87-352 [facility] Serum or plasma IgG measurem ent (mass/volume)Ordered By: Jesus Ayala on 08-02-2024 IgG [Mass/Vol] IgG [Mass/volume] in Serum or Plasma [phone] [facility] Serum or plasma IgM measurem ent (mass/volume)Ordered By: Jesus Ayala on 08-02-2024 IgM [Mass/Vol] IgM [Mass/volume] in Serum or Plasma 26-217 [facility] Comment on above: Performed at: [address] [id number] Director: Gabriel Whitman PhD, Phone: [phone] Serum or plasma albumin ge urement (mass/volume)Ordered By: Jesus Ayala on 08-02-2024 Albumin [Mass/Vol] Albumin [Mass/volume ] in Serum or Plasma 2.9-4.4 [facility] Serum or plasma albumin/glob ulin mass ratioOrdered By: Jesus Ayala on 08-02-2024 Albumin/Globulin [Mass ratio] 1.3 {ratio} Normal [facility] Comment on above: Performed By: #### U PE RAND, CAMILLA,URINE, ALDOLASE, SPE, CAMILLA SERUM #### [facility] , #### ADDONUAPLUS, T4F, ESR, CMP, CK, CBC, CRP, TSH3 #### [facility] [address] Albumin/Globulin [Mass ratio] Serum or plasma albumin/globulin mass ratio 0.7-1.7 [facility] Serum or plasma alpha 1 glob ulin measurement by electrophoresis (mass/volume)Ordered By: Jesus Ayala on 08-02-2024 Alpha 1 globulin Elph [Mass/Vol] Serum or plasma alpha 1 globulin measurement by electrophoresis (mass/volume) 0.0-0.4 [facility] Serum or plasma alpha 2 glob ulin measurement by electrophoresis (mass/volume)Ordered By: Jesus Ayala on 08-02-2024 Alpha 2 globulin Elph [Mass/Vol] Serum or plasma alpha 2 globulin measurement by electrophoresis (mass/volume) 0.4-1.0 [facility] Serum or plasma anion gap de terminationOrdered By: Jesus Ayala on 08-02-2024 Anion gap [Moles/Vol] 12.2 mmol/L Normal 6.0-15.0 [facility] Comment on above: Performed By: #### U PE RAND, CAMILLA,URINE, ALDOLASE, SPE, CAMILLA SERUM #### [facility] , #### ADDONUAPLUS, T4F, ESR, CMP, CK, CBC, CRP, TSH3 #### [facility] [address] Anion gap [Moles/Vol] Serum or plasma an ion gap determination 6.0-15.0 [facility] Serum or plasma beta globuli n measurement by electrophoresis (mass/volume)Ordered By: Jesus Gruberrow on 08-02-2024 Beta globulin Elph [Mass/Vol] Serum or plasma beta globulin measurement by electrophoresis (mass/volume) 0.7-1.3 [facility] Serum or plasma cancer antig en 125 (CA-125) measurement (units/volume)Ordered By: Blake Hinojosa on 08-02-2024 Cancer Ag 125 Qn Serum or plasma canc er antigen 125 (CA-125) measurement (units/volume) 0.0-38.1 [facility] Comment on above: [employer] El ectrochemiluminescence Immunoassay(ECLIA)Values obtained with different assay methods or kits cannotbe used interchangeably. Results cannot be interpreted asabsolute evidence of the presence or absence of malignantdisease.Performed at: [place] [id number] Director: Gabriel Whitman PhD, Phone: [phone] Serum or plasma carcinoembry onic antigen measurement (mass/volume)Ordered By: Blake Hinojosa on 08-02-2024 Carcinoembryonic Ag [Mass/Vol] 1.0 ng/mL 0.0-3.0 [facility] Comment on above: Serial tumor marker results determined by assays using different manufacturers or methods may not be comparable.[facility] belly dump driver and method:RUSSELL UNICEL DXI, 2 SITE IMMUNOENZYMATIC SANDWICH ASSAY. Serum or plasma gamma globul in measurement by electrophoresis (mass/volume)Ordered By: Jesus Ayala on 08-02-2024 Gamma globulin Elph [Mass/Vol] Serum or plasma gamma globulin measurement by electrophoresis (mass/volume) 0.4-1.8 [facility] Sodium [Moles/volume] in Ser um or PlasmaOrdered By: Jesus Gruberrow on 08-02-2024 Sodium [Moles/Vol] 138 mmol/L Normal 136-145 [facility] Comment on above: Performed By: #### U PE RAND, CAMILLA,URINE, ALDOLASE, SPE, CAMILLA SERUM #### [facility] , #### ADDONUAPLUS, T4F, ESR, CMP, CK, CBC, CRP, TSH3 #### [facility] [address] Sodium [Moles/Vol] Sodium [Moles/volume ] in Serum or Plasma 136-145 [facility] Specific gravity Test strip (U) [Rel density]Ordered By: Jesus Gruberrow on 08-02-2024 Specific gravity (U) [Rel density] 1.013 1.001-1.030 [facility] Specific gravity (U) [Rel density] Specific gravity of Urine by Test strip 1.001-1.030 [facility] Thyrotropin [Units/volume] i n Serum or PlasmaOrdered By: Jesus Jamie on 08-02-2024 TSH Qn 2.77 m[IU]/L Normal 0.45-5.33 [facility] Comment on above: Result Comment: PERF ORMED BY: [place] [address] PATHOLOGIST BLENDER/BRAZE APPLICATOR ANAHY MCKEE M.D. Performed By: #### U PE RAND, CAMILLA,URINE, ALDOLASE, SPE, CAMILLA SERUM #### [facility] , #### ADDONUAPLUS, T4F, ESR, CMP, CK, CBC, CRP, TSH3 #### [facility] [address] TSH Qn Thyrotropin [Units/volume] in Serum or Plasma 0.45-5.33 [facility] Thyroxine (T4) free [Mass/vo lume] in Serum or PlasmaOrdered By: Jesus Ayala on 08-02-2024 Free T4 [Mass/Vol] 0.68 ng/dL Normal 0.61-1.12 [facility] Comment on above: Performed By: #### U PE RAND, CAMILLA,URINE, ALDOLASE, SPE, CAMILLA SERUM #### [facility] , #### ADDONUAPLUS, T4F, ESR, CMP, CK, CBC, CRP, TSH3 #### [facility] [address] [place] [address] Free T4 [Mass/Vol] Thyroxine (T4) free [Mass/volume] in Serum or Plasma 0.61-1.12 [facility] Urea nitrogen [Mass/volume] in Serum or PlasmaOrdered By: Jesus Ayala on 08-02-2024 Urea nitrogen [Mass/Vol] 14 mg/dL Normal 04-29 [facility] Comment on above: Performed By: #### U PE RAND, CAMILLA,URINE, ALDOLASE, SPE, CAMILLA SERUM #### [facility] , #### ADDONUAPLUS, T4F, ESR, CMP, CK, CBC, CRP, TSH3 #### [facility] [address] [place] [address] Urea nitrogen [Mass/Vol] Urea nitrogen [Mass/volume] in Serum or Plasma 04-29 [facility] Urine alpha 1 globulin/total protein by electrophoresisOrdered By: Jesus Ayala on 08-02-2024 Alpha 1 globulin Elph (U) [Mass fraction] Urine alpha 1 globulin/total protein by electrophoresis . [facility] Urine alpha 2 globulin/total protein ratio by electrophoresisOrdered By: Jesus Ayala on 08-02-2024 Alpha 2 globulin Elph (U) [Mass fraction] Urine alpha 2 globulin/total protein ratio by electrophoresis . [facility] Urine appearanceOrdered By: Jesus Ayala on 08-02-2024 Appearance (U) Clear Normal Clear [facility] Comment on above: Order Comment: Name Collection Type:: Clean-Voided Midstream Performed By: #### U PE RAND, CAMILLA,URINE, ALDOLASE, SPE, CAMILLA SERUM #### [facility] , #### ADDONUAPLUS, T4F, ESR, CMP, CK, CBC, CRP, TSH3 #### [facility] [address] [place] [address] [place] Urine bacteria detection by automated methodOrdered By: Jesus Ayala on 08-02-2024 Bacteria Auto Ql (U) Bacteria [Presence] in Urine by Automated None Seen [facility] Urine beta globulin measurem ent by electrophoresis (mass/volume)Ordered By: Jesus Ayala on 08-02-2024 Beta globulin Elph (U) [Mass/Vol] Urine beta globulin measurement by electrophoresis (mass/volume) . [facility] Urine protein measurement (m ass/volume)Ordered By: Jesus Ayala on 08-02-2024 Protein (U) [Mass/Vol] Protein [Mass/vol ume] in Urine Not Estab. [facility] Urobilinogen Test strip (U) [Mass/Vol]Ordered By: Jesus Ayala on 08-02-2024 Urobilinogen (U) [Mass/Vol] Normal mg/dL Normal [facility] Urobilinogen (U) [Mass/Vol] Urobilinogen [Mass/volume] in Urine by Test strip Normal [facility] WBC Auto (Bld) [#/Vol]Ordere d By: Jesus Ayala on 08-02-2024 WBC (Bld) [#/Vol] Leukocytes [#/volume ] in Blood by Automated count 3.8-11.6 [facility] XR chest 2V*on 08-02-2024 XR chest 2V* [facility] [address] [place] [address] XRay Report Signed Patient: Mandeep Puri MR#: [id number] 15 : 1975 Acct:[id number] Age/Sex: 48 / F ADM Date: 08/02/24 Loc: XD Room: Type: [facility] Attending Dr: Jesus Ayala MD Copies to: Jesus Ayala MD Ordering Provider: Jesus Ayala MD Date of Service: 08/02/24 XR/XR chest 2V*: ELEVATED ESR PA AND LATERAL CHEST: CLINICAL HISTORY: Elevated sedimentation rate COMPARISON: 05/21/2020 There is no focal parenchymal consolidation, effusion or pneumothorax. The cardiac, hilar and mediastinal silhouettes are within normal limits. There is no vascular congestion. The visualiz ed bony thorax is intact. XR/XR chest 2V* IMPRESSION: NO ACUTE CARDIOPULMONARY ABNORMALITY. Impression dictated by: Trupti Adorno M.D.08/02/2024 4:18 PM Dictation Location: [place] [address] Transcribed By: [facility] 08/02/241617 Dictated By: Trupti Adorno MD 08/02/241616 Signed By: 08/02/24 161 Normal [facility] pH Test strip (U)Ordered By: Jesus Ayala on 08-02-2024 pH (U) pH of Urine by Test strip 5.0-9.0 [facility] pH of Urine by Test stripOrd ered By: Jesus Ayala on 08-02-2024 pH (U) 7.0 [pH] Normal 5.0-9.0 [facility] Comment on above: Order Comment: Name Collection Type:: Clean-Voided Midstream Performed By: #### U PE RAND, CAMILLA,URINE, ALDOLASE, SPE, CAMILLA SERUM #### [facility] , #### ADDONUAPLUS, T4F, ESR, CMP, CK, CBC, CRP, TSH3 #### [facility] [address] [place] [address] ALL CBC WITH AUTO DIFFon BASOPHILS ABSOLUTE AUTO 0 N [facility] Basophils/100 WBC (Bld) 0.5 % 0.2 - 2.0 % [facility] Eosinophils/100 WBC (Bld) 2.9 % 0.9 - 7.0 % [facility] Erythrocyte distribution width (RBC) [Ratio] 14.4 % 11.0 - 15.0 % [facility] Hematocrit (Bld) [Volume fraction] 35.2 % Low 36.0 - 48.0 % [facility] Hemoglobin (Bld) [Mass/Vol] 11.4 g/dL Low 12.0 - 16.0 g/dL [facility] IMMATURE GRANULOCYTES ABS AUTO 0.06 High [facility] Immature granulocytes/100 WBC (Bld) 0.7 % High 0.0 - 0.5 % [facility] Interpretation and review of laboratory results Abnormal [facility] LYMPHOCYTES ABSOLUTE AUTO 1.1 Low [facility] Lymphocytes/100 WBC (Bld) 14 % Low 20.5 - 60.0 % [facility] MCH (RBC) [Entitic mass] 28 pg 26.7 - 34.0 pg [facility] MCHC (RBC) [Mass/Vol] 32.4 g/dL 29.9 - 35.2 g/dL [facility] MCV (RBC) [Entitic vol] 86.5 fL 81.0 - 99.0 fL [facility] MONOCYTES ABSOLUTE AUTO 0.4 N [facility] Monocytes/100 WBC (Bld) 5 % 1.7 - 12.0 % [facility] NEUTROPHILS ABSOLUTE AUTO 6.3 [facility] Neutrophils/100 WBC (Bld) 76.9 % High 43.0 - 75.0 % [facility] Platelet mean volume (Bld) [Entitic vol] 8.3 fL Low 9.5 - 13.5 fL [facility] TBH EO # 0.2 [facility] PLT 362 [facility] TB RBC 4.07 Low [facility] TB WBC 8.2 [facility] Follow-Upon 07-07-2024 Follow-Up [id number] Antonio Puri i 1975 F Date Provider Department Center 07/07/2024 SREE BOOKER [facility] URO [place] Family History Problem Relation Age of Onset Fibromyalgia Mother Heart disease Father Hypertension Sister Polycystic kidney disease Sister Hypertension Brother Polycystic kidney disease Brother Family Status - Relation Status Age at Mother Father Sister Brother Level of Service:12844 AL OFFICE/OUTPATIENT ESTABLISHED LOW MDM 20 MIN Reason for Visit and Comments: UTI [[id number]] - CT results Normal [facility] URINE CULTURE, ROUTINEon Bacteria identified Cx Nom (U) ESCHERICHIA COLI Abnormal [facility] Comment on above: Result Comment: >100 ,000 CFU/Ml Escherichia coli Susceptibility to Follow Performed By: #### L [id number] ####[facility] ([facility]ER)[address] [place] [address] CT [facility] ABDOMEN PELVIS WO IV [...] kidney with innumerable circumscribed lesions within the [place] kidneys, many which are simple cysts, others [...] Epperson MD. Not Vldtd Invalid Interpretation Code [facility] Orders Onlyon 06-15-2024 Orders Only [id number] Antonio Puri i 1975 F Date Provider Department Center 06/15/2024 124-MUNIRA PHAN TXP None Family History Problem Relation Age of Onset Fibromyalgia Mother Heart disease Father Hypertension Sister Polycystic kidney disease Sister Hypertension Brother Polycystic kidney disease Brother Family Status - Relation Status Age at Mother Father Sister Brother Normal [facility] Consulton 05-19-2024 Consult [id number] Antonio Puri i 1975 Date Provider Department Center 05/19/2024 Shey-SREE BLANCHARD [facility] URO Second [place] Family History Problem Relation Age of Onset Fibromyalgia Mother Heart disease Father Hypertension Sister Polycystic kidney disease Sister Hypertension Brother Polycystic kidney disease Brother Family Status - Relation Status Age at Mother Father Sister Brother Level of Service:31566 AL OFFICE/OUTPATIENT ESTABLISHED MOD MDM 30 MIN Reason for Visit and Comments: UTI [[id number]] - Recurrent chronic ecoli , has fibromyalgia and when that flairs up the UTI happens Normal [facility] CREATININE, URINE, RANDOMon 04-27-2024 Creatinine (U) [Mass/Vol] 142.0 mg/dL Normal 26-299 [facility] Comment on above: Performed By: #### L [id number] ####[facility] ([facility])[address] [place] [address] Follow-Upon 04-27-2024 Follow-Up [id number] KhushiAntonio i 1975 Date Provider Department Center 04/27/2024 124-MUNIRA PHAN TXP None Family History Problem Relation Age of Onset Fibromyalgia Mother Heart disease Father Hypertension Sister Polycystic kidney disease Sister Hypertension Brother Polycystic kidney disease Brother Family Status - Relation Status Age at Mother Father Sister Brother Level of Service:65136 AL OFFICE/OUTPATIENT ESTABLISHED MOD MDM 30 MIN Reason [...] mg because they are smaller pills. Normal [facility] PROTEIN, URINE, RANDOMon Protein (U) [Mass/Vol] 51.7 mg/dL Normal Un [facility] Comment on above: Result Comment: Ther e are no established reference values for random urine specimens. Performed By: #### L [id number] ####[facility] ([facility])[address] [place] [address] URINALYSISon 04-27-2024 BILIRUBIN, TOTAL PRESENCE IN URINE Negative Normal Negative [facility] Comment on above: Performed By: #### L [id number] ####[facility] ([facility])[address] [place] [address] Clarity (U) Slightly Cloudy Abnormal Clear [facility] Comment on above: Performed By: #### L [id number] ####[facility] ([facility])[address] [place] [address] Color (U) Yellow Normal Yellow [facility] Comment on above: Performed By: #### L [id number] ####[facility] ([facility])[address] [place] [address] Glucose (U) [Mass/Vol] Negative Normal Negative [facility] Comment on above: Performed By: #### L [id number] ####[facility] ([facility])[address] [place] [address] HEMOGLOBIN PRESENCE IN URINE Small Abnormal Negative [facility] Comment on above: Performed By: #### L [id number] ####[facility] ([facility])[address] [place] [address] Ketones Ql (U) Negative Normal Negative [facility] Comment on above: Performed By: #### L [id number] ####[facility] ([facility])[address] [place] [address] LEUKOCYTE ESTERASE PRESENCE IN URINE BY TEST STRIP Large Abnormal Negative [facility] Comment on above: Performed By: #### L [id number] ####[facility] ([facility])[address] [place] [address] NITRITE PRESENCE IN URINE Positive Abnormal Negative [facility] Comment on above: Performed By: #### L [id number] ####[facility] (BEAKER)[address] [place] [address] pH (U) 6.0 [pH] Normal 5.0-8.0 [facility] Comment on above: Performed By: #### L [id number] ####[facility] (BEAKER)[address] [place] [address] Protein (U) [Mass/Vol] 100 mg/dL Abnormal Negative [facility] Comment on above: Performed By: #### L [id number] ####[facility] (BEAKER)[address] [place] [address] Specific gravity (U) [Rel density] 1.012 Low 1.015-1.020 [facility] Comment on above: Performed By: #### L [id number] ####[facility] (BEAKER)[address] [place] [address] URINALYSIS MICROSCOPICon CASTS IN URINE Normal [facility] Comment on above: Performed By: #### L [id number] ####[facility] (BEAKER)[address] [place] [address] CRYSTALS IN URINE Normal [facility] Comment on above: Performed By: #### L [id number] ####[facility] (BEAKER)[address] [place] [address] MUCUS (#/HPF) IN URINE SEDIMENT Occasional Normal None Seen, Occasional, Few [facility] Comment on above: Performed By: #### L [id number] ####[facility] (BEAKER)[address] [place] [address] RBC (#/HPF) IN URINE SEDIMENT 11-20 Abnormal None Seen [facility] Comment on above: Performed By: #### L [id number] ####[facility] (BE[facility]ER)[address] [place] [address] SQUAMOUS EPITHELIAL CELLS (#/HPF) IN URINE SEDIMENT Moderate Abnormal None Seen, Occasional [facility] Comment on above: Performed By: #### L [id number] ####[facility] (BEAKER)[address] [place] [address] WBC (LEUKOCYTE) (#/HPF) IN URINE SEDIMENT >100 Abnormal None Seen [facility] Comment on above: Performed By: #### L [id number] ####[facility] ([facility])[address] [place] [address] URINE CULTURE, ROUTINEon Bacteria identified Cx Nom (U) ESCHERICHIA COLI Abnormal [facility] Comment on above: Result Comment: >100 ,000 CFU/Ml Escherichia coli Susceptibility to Follow Performed By: #### L [id number] ####[facility] ([facility])[address] [place] [address] BILIRUBIN, DIRECTon 04-23-20 Magnesium [Mass/Vol] 0.0 mg/dL Normal 0-0.2 [facility] Comment on above: Performed By: #### L [id number] #### [facility] ([facility]) [address] [place] [address] CBC WITH AUTO DIFFERENTIALon 04-23-2024 Basophils (Bld) [#/Vol] 0.05 10*3/uL Normal 0.00-0.20 [facility] Comment on above: Performed By: #### L [id number] #### [facility] ([facility]) [address] [place] [address] Basophils/100 WBC (Bld) 0.6 % Normal 0.0-1.0 U [facility] Comment on above: Performed By: #### L [id number] #### [facility] ([facility]) [address] [place] [address] Eosinophils (Bld) [#/Vol] 0.17 10*3/uL Normal 0.00-0.50 [facility] Comment on above: Performed By: #### L [id number] #### [facility] ([facility]) [address] [place] [address] Eosinophils/100 WBC (Bld) 1.9 % Normal 0.0-6.0 [facility] Comment on above: Performed By: #### L [id number] #### [facility] ([facility]) [address] [place] [address] Erythrocyte distribution width (RBC) [Ratio] 15.7 % High 11.5-15.0 [facility] Comment on above: Performed By: #### L [id number] #### [facility] ([facility]) [address] [place] [address] ERYTHROCYTE MEAN CORPUSCULAR HEMOGLOBIN CONCENTRATION (G/DL) BY AUTOMATED 32.7 g/dL Normal 32.0-35.0 [facility] Comment on above: Performed By: #### L [id number] #### [facility] ([facility]) [address] [place] [address] Hematocrit (Bld) [Volume fraction] 39.2 % Normal 36.0-48.0 [facility] Comment on above: Performed By: #### L [id number] #### [facility] ([facility]) [address] [place] [address] Hemoglobin (Bld) [Mass/Vol] 12.8 g/dL Normal 12.0-15.0 [facility] Comment on above: Performed By: #### L [id number] #### [facility] ([facility]) [address] [place] [address] Immature granulocytes (Bld) [#/Vol] 0.06 10*3/uL Normal 0.00-0.20 [facility] Comment on above: Performed By: #### L [id number] #### [facility] ([facility]) [address] [place] [address] Immature granulocytes/100 WBC (Bld) 0.7 % Normal 0.0-1.0 [facility] Comment on above: Performed By: #### L [id number] #### [facility] ([facility]) [address] [place] [address] Lymphocytes (Bld) [#/Vol] 1.27 10*3/uL Normal 1.20-4.00 [facility] Comment on above: Performed By: #### L [id number] #### [facility] (BEAKER) [address] [place] [address] Lymphocytes/100 WBC (Bld) 14.5 % Low 20.0-45.0 [facility] Comment on above: Performed By: #### L [id number] #### [facility] ([facility]) [address] [place] [address] MCH (RBC) [Entitic mass] 27.7 pg Normal 27.0-33.0 [facility] Comment on above: Performed By: #### L [id number] #### [facility] ([facility]) [address] [place] [address] MCV (RBC) [Entitic vol] 84.8 fL Normal 82.0-98.0 U [facility] Comment on above: Performed By: #### L [id number] #### [facility] ([facility]) [address] [place] [address] Monocytes (Bld) [#/Vol] 0.40 10*3/uL Normal 0.10-1.00 [facility] Comment on above: Performed By: #### L [id number] #### [facility] ([facility]) [address] [place] [address] Monocytes/100 WBC (Bld) 4.6 % Low 5.0-12.0 U [facility] Comment on above: Performed By: #### L [id number] #### [facility] ([facility]) [address] [place] [address] Neutrophils (Bld) [#/Vol] 6.82 10*3/uL Normal 1.60-7.60 [facility] Comment on above: Performed By: #### L [id number] #### [facility] ([facility]ER) [address] [place] [address] Neutrophils/100 WBC (Bld) 77.7 % High 40.0-72.0 [facility] Comment on above: Performed By: #### L [id number] #### [facility] ([facility]) [address] [place] [address] NRBC (PER 100 WBCS) BY AUTOMATED COUNT 0.0 % Normal 0 [facility] Comment on above: Performed By: #### L [id number] #### [facility] ([facility]) [address] [place] [address] PLATELETS (10*3/UL) IN BLOOD AUTOMATED COUNT 337 10*3/uL Normal 150-400 [facility] Comment on above: Performed By: #### L [id number] #### [facility] ([facility]) [address] [place] [address] RBC (Bld) [#/Vol] 4.62 10*6/uL Normal 3.80-5.00 [facility] Comment on above: Performed By: #### L [id number] #### [facility] ([facility]) [address] [place] [address] WBC (Bld) [#/Vol] 8.77 10*3/uL Normal 4.00-10.60 [facility] Comment on above: Performed By: #### L [id number] #### [facility] ([facility]) [address] [place] [address] COMPREHENSIVE METABOLIC PANE Jonathan 04-23-2024 Albumin [Mass/Vol] 4.4 g/dL Normal 3.5-5.7 [facility] Comment on above: Performed By: #### L [id number] #### [facility] ([facility]) [address] [place] [address] ALP [Catalytic activity/Vol] 74 U/L Normal 34-104 [facility] Comment on above: Performed By: #### L [id number] #### [facility] ([facility]) [address] [place] [address] ALT [Catalytic activity/Vol] 9 U/L Normal 7-52 [facility] Comment on above: Performed By: #### L [id number] #### [facility] ([facility]) [address] [place] [address] Anion gap [Moles/Vol] 13 mmol/L Normal 7-20 [facility] Comment on above: Performed By: #### L [id number] #### [facility] ([facility]) [address] [place] [address] AST [Catalytic activity/Vol] 14 U/L Normal 13-39 [facility] Comment on above: Performed By: #### L [id number] #### [facility] ([facility]) [address] [place] [address] Bilirubin [Mass/Vol] 0.4 mg/dL Normal 0.3-1.0 [facility] Comment on above: Performed By: #### L [id number] #### [facility] ([facility]) [address] [place] [address] Calcium [Mass/Vol] 9.4 mg/dL Normal 8.6-10.3 [facility] Comment on above: Performed By: #### L [id number] #### [facility] ([facility]) [address] [place] [address] Chloride [Moles/Vol] 104 mmol/L Normal 98-107 [facility] Comment on above: Performed By: #### L [id number] #### [facility] ([facility]) [address] [place] [address] CO2 [Moles/Vol] 25 mmol/L Normal 21-31 [facility] Comment on above: Performed By: #### L [id number] #### [facility] ([facility]) [address] [place] [address] Creatinine [Mass/Vol] 1.09 mg/dL Normal 0.60-1.20 [facility] Comment on above: Performed By: #### L [id number] #### [facility] ([facility]) [address] [place] [address] GLOMERULAR FILTRATION RATE ML/MIN/1.73 SQ M.PREDICTED 62.7 mL/min/1.73m*2 Normal >60.0 [facility] Comment on above: Result Comment: The [facility]???s estimated glomerular filtration rate (eGFR) will [...] group of individuals. Performed By: #### L [id number] #### [facility] ([facility]) [address] [place] [address] Glucose [Mass/Vol] 108 mg/dL High 70-100 [facility] Comment on above: Performed By: #### L [id number] #### [facility] ([facility]) [address] [place] [address] Potassium [Moles/Vol] 3.5 mmol/L Normal 3.5-5.1 [facility] Comment on above: Performed By: #### L [id number] #### [facility] ([facility]) [address] [place] [address] Protein [Mass/Vol] 7.6 g/dL Normal 6.0-8.3 [facility] Comment on above: Performed By: #### L [id number] #### [facility] ([facility]) [address] [place] [address] Sodium [Moles/Vol] 138 mmol/L Normal 136-145 [facility] Comment on above: Performed By: #### L [id number] #### [facility] (BEAKER) [address] [place] [address] Urea nitrogen [Mass/Vol] 13 mg/dL Normal 7-25 [facility] Comment on above: Performed By: #### L [id number] #### [facility] ([facility]) [address] [place] [address] UREA NITROGEN/CREATININE (MASS RATIO) IN SER/PLAS 11.9 Normal [facility] Comment on above: Performed By: #### L [id number] #### [facility] ([facility]) [address] [place] [address] HEMOGLOBIN A1Con 04-23-2024 Glucose [Mass/Vol] 105 mg/dL Normal [facility] Comment on above: Performed By: #### L [id number] #### [facility] ([facility]) [address] [place] [address] HbA1c (Bld) [Mass fraction] 5.3 % Normal 4.0-6.0 [facility] Comment on above: Performed By: #### L [id number] #### [facility] ([facility]) [address] [place] [address] LIPID PANELon 04-23-2024 CHOL/HDL 4.0 mg/dL Normal [facility] Comment on above: Performed By: #### L [id number] #### [facility] ([facility]) [address] [place] [address] Cholesterol [Mass/Vol] 182 mg/dL Normal 120-200 [facility] Comment on above: Performed By: #### L [id number] #### [facility] ([facility]) [address] [place] [address] Magnesium [Mass/Vol] 166 mg/dL High 40-149 [facility] Comment on above: Result Comment: TRIG LYCERIDE REFERENCE RANGE: 20 YEARS AND OLDER CARDIOVASCULAR RISK LESS THAN 150 mg/dL LOW RISK 150 TO 199 mg/dL BORDERLINE RISK 200 mg/dL AND GREATER HIGH RISK Performed By: #### L [id number] #### [facility] ([facility]) [address] [place] [address] Magnesium [Mass/Vol] 103 mg/dL Normal 0-160 [facility] Comment on above: Performed By: #### L [id number] #### [facility] ([facility]) [address] [place] [address] Magnesium [Mass/Vol] 46 mg/dL Normal 23-92 [facility] Comment on above: Performed By: #### L [id number] #### [facility] ([facility]) [address] [facility] [place] [address] NON HDL CHOL. (LDL+VLDL) 136 Normal [facility] Comment on above: Performed By: #### L [id number] #### [facility] ([facility]) [address] [place] [address] TOTAL VLDL-C 33 mg/dL Normal 0-40 [facility] Comment on above: Performed By: #### L [id number] #### [facility] ([facility]) [address] [place] [address] Labon 04-23-2024 Lab [id number] Antonio Puri i 1975 F Date Provider Department Center 04/23/2024 2245-[facility]PD LAB RESOURCE [facility] Family History Problem Relation Age of Onset Fibromyalgia Mother Heart disease Father Hypertension Sister Polycystic kidney disease Sister Hypertension Brother Polycystic kidney disease Brother Family Status - Relation Status Age at Mother Father Sister Brother Normal [facility] MAGNESIUMon 04-23-2024 Magnesium [Mass/Vol] 1.8 mg/dL Low 1.9-2.7 [facility] Comment on above: Performed By: #### L [id number] #### [facility] ([facility]) [address] [place] [address] PHOSPHORUSon 04-23-2024 Magnesium [Mass/Vol] 2.8 mg/dL Normal 2.5-5.0 [facility] Comment on above: Performed By: #### L [id number] #### [facility] ([facility]) [address] [place] [address] TACROLIMUS LEVELon Tacrolimus (Bld) [Mass/Vol] 10.5 ng/mL Normal 5.0-20.0 [facility] Comment on above: Result Comment: The [employer] Tacrolimus assay is a delayed one-step immunoassay for the quantitative determination of tacrolimus in human whole blood using the chemiluminescent microparticle immunoassay (CMIA) technology with flexible assay protocols, referred to as Chemiflex. Performed By: #### L [id number] ####[facility] ([facility])[address] [place] [address] URIC ACIDon 04-23-2024 Magnesium [Mass/Vol] 4.0 mg/dL Normal 2.3-6.6 [facility] Comment on above: Performed By: #### L [id number] #### [facility] ([facility]) [address] [place] [address] URINALYSISon 04-23-2024 BILIRUBIN, TOTAL PRESENCE IN URINE Negative Normal Negative [facility] Comment on above: Performed By: #### L [id number] #### [facility] ([facility]) [address] [place] [address] Clarity (U) Cloudy Abnormal Clear [facility] Comment on above: Performed By: #### L [id number] #### [facility] ([facility]) [address] [place] [address] Color (U) Yellow Normal Yellow [facility] Comment on above: Performed By: #### L [id number] #### [facility] ([facility]) [address] [place] [address] Glucose (U) [Mass/Vol] Negative Normal Negative Un [facility] Comment on above: Performed By: #### L [id number] #### [facility] ([facility]) [address] [place] [address] HEMOGLOBIN PRESENCE IN URINE Negative Normal Negative [facility] Comment on above: Performed By: #### L [id number] #### [facility] ([facility]) [address] [place] [address] Ketones Ql (U) Negative Normal Negative [facility] Comment on above: Performed By: #### L [id number] #### [facility] ([facility]) [address] [place] [address] LEUKOCYTE ESTERASE PRESENCE IN URINE BY TEST STRIP Negative Normal Negative [facility] Comment on above: Performed By: #### L [id number] #### [facility] ([facility]) [address] [place] [address] NITRITE PRESENCE IN URINE Negative Normal Negative [facility] Comment on above: Performed By: #### L [id number] #### [facility] ([facility]) [address] [place] [address] pH (U) 7.0 [pH] Normal 5.0-8.0 [facility] Comment on above: Performed By: #### L [id number] #### [facility] ([facility]) [address] [place] [address] Protein (U) [Mass/Vol] Negative Normal Negative [facility] Comment on above: Performed By: #### L [id number] #### [facility] ([facility]) [address] [place] [address] Specific gravity (U) [Rel density] 1.011 Low 1.015-1.020 [facility] Comment on above: Performed By: #### L [id number] #### [facility] ([facility]) [address] [place] [address] URINALYSIS MICROSCOPICon AMORPHOUS CRYSTALS (#/HPF) IN URINE Few Abnormal None Seen [facility] Comment on above: Performed By: #### L [id number] #### [facility] ([facility]) [address] [place] [address] CASTS IN URINE Normal [facility] Comment on above: Performed By: #### L [id number] #### [facility] ([facility]) [address] [place] [address] CRYSTALS IN URINE Normal Univers [facility] Comment on above: Performed By: #### L [id number] #### [facility] ([facility]) [address] [place] [address] MUCUS (#/HPF) IN URINE SEDIMENT Occasional Normal None Seen, Occasional, Few [facility] Comment on above: Performed By: #### L [id number] #### [facility] ([facility]) [address] [place] [address] RBC (#/HPF) IN URINE SEDIMENT 3-5 Abnormal None Seen [facility] Comment on above: Performed By: #### L [id number] #### [facility] ([facility]) [address] [place] [address] SQUAMOUS EPITHELIAL CELLS (#/HPF) IN URINE SEDIMENT Many Abnormal None Seen, Occasional [facility] Comment on above: Performed By: #### L [id number] #### [facility] ([facility]) [address] [place] [address] WBC (LEUKOCYTE) (#/HPF) IN URINE SEDIMENT 3-5 Abnormal None Seen [facility] Comment on above: Performed By: #### L [id number] #### [facility] ([facility]) [address] [place] [address] URINE CULTURE, ROUTINEon Bacteria identified Cx Nom (U) <10,000 CFU/ML No Significant Growth Normal [facility] Comment on above: Performed By: #### L [id number] ####[facility] ([facility])[address] [place] [address] US RENAL COMPLETEon 04-14-20 US RENAL COMPLETE EXAM: Renal Ultrasou nd with Doppler: REASON FOR EXAM: Polycystic kidneys. COMPARISON: None. TECHNIQUE: Real-time ultrasonographic evaluation of the kidneys is performed with color flow Doppler. FINDINGS: There is a transplanted right kidney. Right kidney: Numerous mohegan right renal cysts. No hydronephrosis. Left kidney: Numerous mohegan left renal cysts. No hydronephrosis. Uniform and [...] report is generated using voice recognition reporting (Factor 14). On occasion PowerScribe erroneously drops words from the report or replaces the spoken word with similar sounding words. Please call with any questions/concerns regarding this report.* Dictated and transcribed 04/14/2024/heriberto This report has been electronically signed and approved by the interpreting radiologist. Electronically Signed René Raymond M.D. 2024-04-14 16:31:56 Normal Not Available Urine Cultureon 03-15-2024 Bacteria identified Cx Nom (U) ORGANISM: Escherichia coli (MDRO) (O:ESCCOLMDRO) Brady Count >100,000 Aerobic CODI Charge (NMIC56) - SUSCEPTIBILITY ORGANISM: O:ESCCOLMDRO ANTIBIOTIC INTERPRETATION CODI Amikacin [...] >8 Tigecycline S <2 Tobramycin S 4 Trimethoprim/Sulfamethox azole R >2 S = SUSCEPTIBLE I = [...] RESISTANT TO ALL B-LACTAM DRUGS. PERFORMED BY: [address] [place] [address] PATHOLOGIST BLENDER/BRAZE APPLICATOR ANAHY MCKEE M.D. Normal [facility] Comment on above: Performed By: #### C UU #### [facility] [address] Documentationon 03-03-2024 Documentation [id number] Antonio Puri i 1975 F Date Provider Department Center 03/03/2024 750-EVERETTEJOSE RAFAEL TXP None Family History Problem Relation Age of Onset Fibromyalgia Mother Heart disease Father Hypertension Sister Polycystic kidney disease Sister Hypertension Brother Polycystic kidney disease Brother Family Status - Relation Status Age at Mother Father Sister Brother Normal [facility] Follow-Upon 12-23-2023 Follow-Up [id number] Antonio Puri i 1975 F Date Provider Department Center 12/23/2023 124-SYLVESTER MUNIRA TXP None Family History Problem Relation Age of Onset Fibromyalgia Mother Heart disease Father Hypertension Sister Polycystic kidney disease Sister Hypertension Brother Polycystic kidney disease Brother Family Status - Relation Status Age at Mother Father Sister Brother Level of Service:42150 AL OFFICE/OUTPATIENT ESTABLISHED MOD MDM 30 MIN Reason for Visit and Comments: Kidney Follow-up [[id number]] - Pt has questions about her lab work. Normal [facility] PAPITO Antinuclear Antibodieson 11-06-2023 Antinuclear Abs, IFA Negative Normal . [facility] Comment on above: Result Comment: Nega tive <1:80 Borderline 1:80 Positive >1:80 ICAP nomenclature: AC-0 For more information about Hep-2 cell patterns use ANApatterns.org, the official website for the International Consensus on Antinuclear Antibody (PAPITO) Patterns (ICAP). Performed at: - [facility] [id number] Drill Runner: Gabriel Whitman PhD, Phone: [phone] PERFORMED BY: [facility] [address] [place] [address] PATHOLOGIST BLENDER/BRAZE APPLICATOR ANAHY MCKEE M.D. Performed By: #### C BC, CMP, CK, CRP, ESR ####[facility] [address]#### PAPITO ####[facility] , Alanine aminotransferase [En zymatic activity/volume] in Serum or PlasmaOrdered By: Perri Ceja on 11-06-2023 ALT [Catalytic activity/Vol] 20 U/L Normal 7-52 [facility] Comment on above: Performed By: #### C BC, CMP, CK, CRP, ESR ####[place] [address] [address]#### PAPITO ####[facility] , Albumin [Mass/volume] in Ser um or Plasma by Bromocresol green (BCG) dye binding methoOrdered By: Perri Ceja on 11-06-2023 Albumin BCG dye [Mass/Vol] 4.7 g/dL 3.5-5.7 [facility] Alkaline phosphatase [Enzyma tic activity/volume] in Serum or PlasmaOrdered By: Perri Ceja on 11-06-2023 ALP [Catalytic activity/Vol] 96 U/L Normal 34-104 [facility] Comment on above: Performed By: #### C BC, CMP, CK, CRP, ESR ####[address]#### PAPITO ####[facility] , Aspartate aminotransferase [ Enzymatic activity/volume] in Serum or PlasmaOrdered By: Perri Ceja on 11-06-2023 AST [Catalytic activity/Vol] 16 U/L Normal 13-39 [facility] Comment on above: Performed By: #### C BC, CMP, CK, CRP, ESR ####[place] [address] [place]#### PAPITO ####[facility] , Automated basophil %Ordered By: Perri Ceja on 11-06-2023 Basophils/100 WBC (Bld) 0.7 % Normal . [facility] Comment on above: Performed By: #### C BC, CMP, CK, CRP, ESR ####[address]#### PAPITO ####[facility] , Automated basophil countOrde red By: Perri Ceja on 11-06-2023 Basophils (Bld) [#/Vol] 0.1 10*3/uL Normal 0.0-0.2 [facility] Comment on above: Performed By: #### C BC, CMP, CK, CRP, ESR ####[address]#### PAPITO ####[facility] , Automated blood monocyte cou ntOrdered By: Perri Ceja on 11-06-2023 Monocytes (Bld) [#/Vol] 0.6 10*3/uL Normal 0.0-0.8 [facility] Comment on above: Performed By: #### C BC, CMP, CK, CRP, ESR ####[address]#### PAPITO ####[facility] , Automated eosinophil %Ordere d By: Perri Ceja on 11-06-2023 Eosinophils/100 WBC (Bld) 3.0 % Normal . [facility] Comment on above: Performed By: #### C BC, CMP, CK, CRP, ESR ####[address]#### PAPITO ####[facility] , Automated eosinophil countOr dered By: Perri Ceja on 11-06-2023 Eosinophils (Bld) [#/Vol] 0.3 10*3/uL Normal 0.0-0.45 [facility] Comment on above: Performed By: #### C BC, CMP, CK, CRP, ESR ####[place] [address] [place]#### PAPITO ####[facility] , Automated monocyte %Ordered By: Perri Ceja on 11-06-2023 Monocytes/100 WBC (Bld) 6.6 % Normal . [facility] Comment on above: Performed By: #### C BC, CMP, CK, CRP, ESR ####[address] [place] [address] [place]#### PAPITO ####[facility] , Automated neutrophil %Ordere d By: Perri Ceja on 11-06-2023 Neutrophils/100 WBC (Bld) 72.1 % Normal . [facility] Comment on above: Performed By: #### C BC, CMP, CK, CRP, ESR ####[place] [address] [place]#### PAPITO ####[facility] , Bilirubin.total [Mass/volume ] in Serum or PlasmaOrdered By: Perri Ceja on 11-06-2023 Bilirubin [Mass/Vol] 0.4 mg/dL Normal 0.3-1.0 [facility] Comment on above: Performed By: #### C BC, CMP, CK, CRP, ESR ####[address]#### PAPITO ####[facility] , C reactive protein [Mass/vol ume] in Serum or PlasmaOrdered By: Perri Ceja on 11-06-2023 CRP [Mass/Vol] 2.0 mg/dL 0.0-0.5 [facility] C-Reactive Proteinon 024 C-Reactive Protein 2.0 mg/dL High 0.0-0.5 [facility] Comment on above: Result Comment: PERF ORMED BY: [facility] [address] [place] [address] PATHOLOGIST BLENDER/BRAZE APPLICATOR ANAHY MCKEE M.D. Performed By: #### C BC, CMP, CK, CRP, ESR ####[place] [address] [place]#### PAPITO ####[facility] , Calcium [Mass/volume] in Ser um or PlasmaOrdered By: Perri Ceja on 11-06-2023 Calcium [Mass/Vol] 10.3 mg/dL Normal 8.6-10.3 [facility] Comment on above: Performed By: #### C BC, CMP, CK, CRP, ESR ####[address]#### PAPITO ####[facility] , Carbon dioxide, total [Moles /volume] in Serum or PlasmaOrdered By: Perri Ceja on 11-06-2023 CO2 [Moles/Vol] 26.1 mmol/L Normal 21.0-31.0 [facility] Comment on above: Performed By: #### C BC, CMP, CK, CRP, ESR ####[address]#### PAPITO ####[facility] , Chloride [Moles/volume] in S aislinn or PlasmaOrdered By: Perri Ceja on 11-06-2023 Chloride [Moles/Vol] 104 mmol/L Normal 98-107 [facility] Comment on above: Performed By: #### C BC, CMP, CK, CRP, ESR ####[address]#### PAPITO ####[facility] , Complete Blood Count Auto Di ffon 11-06-2023 Mean Corpuscular HGB Conc 33.6 g/dL Normal 32.0-35.0 [facility] Comment on above: Performed By: #### C BC, CMP, CK, CRP, ESR ####[place] [address] [place]#### PAPITO ####[facility] , NRBC% 0.1 /100{WBC} Normal 0-0.5 [facility] Comment on above: Performed By: #### C BC, CMP, CK, CRP, ESR ####[place] [address] [place]#### PAPITO ####[facility] , Comprehensive Metabolic Pane jonathan 11-06-2023 Albumin [Mass/Vol] 4.7 g/dL Normal 3.5-5.7 [facility] Comment on above: Performed By: #### C BC, CMP, CK, CRP, ESR ####[address]#### PAPITO ####[facility] , GFR/1.73 sq M.predicted MDRD (S/P/Bld) [Vol rate/Area] 57.919 mL/min/{1.73_m2} Normal [facility] Comment on above: Performed By: #### C BC, CMP, CK, CRP, ESR ####[address]#### PAPITO ####[facility] , Creatine kinase [Enzymatic a ctivity/volume] in Serum or PlasmaOrdered By: Perri Ceja on 11-06-2023 CK [Catalytic activity/Vol] 30 U/L Normal 30-223 [facility] Comment on above: Result Comment: PERF ORMED BY: [address] [place] [address] PATHOLOGIST BLENDER/BRAZE APPLICATOR ANAHY MCKEE M.D. Performed By: #### C BC, CMP, CK, CRP, ESR ####[address]#### PAPITO ####[facility] , Creatinine [Mass/volume] in Serum or PlasmaOrdered By: Perri Ceja on 11-06-2023 Creatinine [Mass/Vol] 1.17 mg/dL Normal 0.60-1.20 [facility] Comment on above: Performed By: #### C BC, CMP, CK, CRP, ESR ####[place] [address] [place]#### PAPITO ####[facility] , Erythrocyte Sedimentation Ra mathieu 11-06-2023 ESR (Bld) [Velocity] 49 mm/h High 0-19 [facility] Comment on above: Result Comment: PERF ORMED BY: [facility] [address] [facility] [place] [address] PATHOLOGIST BLENDER/BRAZE APPLICATOR ANAHY MCKEE M.D. Performed By: #### C BC, CMP, CK, CRP, ESR ####[facility]#### PAPITO ####[facility] , Erythrocyte distribution wid th [Ratio] by Automated countOrdered By: Perri Ceja on 11-06-2023 Erythrocyte distribution width (RBC) [Ratio] 15.3 % Normal 11.9-15.3 [facility] Comment on above: Performed By: #### C BC, CMP, CK, CRP, ESR ####[place] [address] [address]#### PAPITO ####[facility] , Erythrocyte sedimentation ra te by Photometric methodOrdered By: Perri Ceja on 11-06-2023 ESR Photometric method (Bld) [Velocity] 49 mm/hr 0-19 [facility] Erythrocytes [#/volume] in B lood by Automated countOrdered By: Perri Ceja on 11-06-2023 RBC (Bld) [#/Vol] 4.60 10*6/uL Normal 3.60-5.00 [facility] Comment on above: Performed By: #### C BC, CMP, CK, CRP, ESR ####[place] [address] [address]#### PAPITO ####[facility] , Glucose [Mass/volume] in Ser um or PlasmaOrdered By: Perri Ceja on 11-06-2023 Glucose [Mass/Vol] 91 mg/dL Normal 70-100 [facility] Comment on above: ADA recommended refe rence rangeRandom Glucose Reference Range is dependent on time and content of last meal. Glucose of more than 200 mg/dL in a nonstressed, ambulatory subject supports the diagnosis of Diabetes Mellitus. Result Comment: [place] om Glucose Reference Range is dependent on time and content of last meal. Glucose of more than 200 mg/dL in a nonstressed, ambulatory subject supports the diagnosis of Diabetes Mellitus. ADA recommended reference range Performed By: #### C BC, CMP, CK, CRP, ESR ####[facility] [place] [address] [place]#### PAPITO ####[facility] , Hematocrit [Volume Fraction] of Blood by Automated countOrdered By: Perri Ceja on 11-06-2023 Hematocrit (Bld) [Volume fraction] 38.9 % Normal 34.0-46.4 [facility] Comment on above: Performed By: #### C BC, CMP, CK, CRP, ESR ####[place] [address] [place]#### PAPITO ####[facility] , Hemoglobin [Mass/volume] in BloodOrdered By: Perri Ceja on 11-06-2023 Hemoglobin (Bld) [Mass/Vol] 13.1 g/dL Normal 11.8-15.4 [facility] Comment on above: Performed By: #### C BC, CMP, CK, CRP, ESR ####[place] [address] [place]#### PAPITO ####[facility] , Leukocytes [#/volume] correc noah for nucleated erythrocytes in Blood by Automated counOrdered By: Perri Ceja on 11-06-2023 WBC corrected for nucl RBC Auto (Bld) [#/Vol] 8.8 10*3/uL 3.8-11.6 [facility] Leukocytes [#/volume] in Blo od by Automated countOrdered By: Perri Ceja on 11-06-2023 WBC (Bld) [#/Vol] 8.8 10*3/uL Normal 3.8-11.6 [facility] Comment on above: Performed By: #### C BC, CMP, CK, CRP, ESR ####[place] [address] [place]#### PAPITO ####[facility] , Lymphocytes [#/volume] in Bl ood by Automated countOrdered By: Perri Ceja on 11-06-2023 Lymphocytes (Bld) [#/Vol] 1.5 10*3/uL Normal 1.00-4.8 [facility] Comment on above: Performed By: #### C BC, CMP, CK, CRP, ESR ####[address]#### PAPITO ####[facility] , Lymphocytes/100 leukocytes i n Blood by Automated countOrdered By: Perri Ceja on 11-06-2023 Lymphocytes/100 WBC (Bld) 17.6 % Normal . [facility] Comment on above: Performed By: #### C BC, CMP, CK, CRP, ESR ####[address]#### PAPITO ####[facility] , MCH [Entitic mass] by Automa noah countOrdered By: Perri Ceja on 11-06-2023 MCH (RBC) [Entitic mass] 28.4 pg Normal 24.7-34.3 [facility] Comment on above: Performed By: #### C BC, CMP, CK, CRP, ESR ####[address]#### PAPITO ####[facility] , MCHC Auto (RBC) [Mass/Vol]Or dered By: Perri Ceja on 11-06-2023 MCHC (RBC) [Mass/Vol] 33.6 g/dL 32.0-35.0 [facility] MCV [Entitic volume] by Auto mated countOrdered By: Perri Ceja on 11-06-2023 MCV (RBC) [Entitic vol] 84.6 fL Normal 80-100 [facility] Comment on above: Performed By: #### C BC, CMP, CK, CRP, ESR ####[place] [address] [place]#### PAPITO ####[facility] , Neutrophils [#/volume] in Bl ood by Automated countOrdered By: Perri Ceja on 11-06-2023 Neutrophils (Bld) [#/Vol] 6.3 10*3/uL Normal 1.8-7.7 [facility] Comment on above: Performed By: #### C BC, CMP, CK, CRP, ESR ####[facility] [id number]#### PAPITO ####[facility] , No Panel InformationOrdered By: Perri Ceja on 11-06-2023 Estimated GFR (CKD-EPI) 57.919 mL/Min [facility] Creatinine Clearance (Chem N/A [facility] Nucleated erythrocytes [Pres ence] in Blood by Automated countOrdered By: Perri Ceja on 11-06-2023 Nucleated RBC Auto Ql (Bld) 0.1 /100{WBC} 0-0.5 [facility] Platelet mean volume [Entiti c volume] in Blood by Automated countOrdered By: Perri Ceja on 11-06-2023 Platelet mean volume (Bld) [Entitic vol] 6.9 fL Normal 6.3-10.7 [facility] Comment on above: Performed By: #### C BC, CMP, CK, CRP, ESR ####[facility] [id number]#### PAPITO ####[facility] , Platelets [#/volume] in Bloo d by Automated countOrdered By: Perri Ceja on 11-06-2023 Platelets (Bld) [#/Vol] 393 10*3/uL Normal 150-450 [facility] Comment on above: Performed By: #### C BC, CMP, CK, CRP, ESR ####[place] [address] [place]#### PAPITO ####[facility] , Potassium [Moles/volume] in Serum or PlasmaOrdered By: Perri Ceja on 11-06-2023 Potassium [Moles/Vol] 3.8 mmol/L Normal 3.5-5.1 [facility] Comment on above: Performed By: #### C BC, CMP, CK, CRP, ESR ####[place] [address] [place] [address] [place]#### PAPITO ####[facility] , Protein [Mass/volume] in Ser um or PlasmaOrdered By: Perri Ceja on 11-06-2023 Protein [Mass/Vol] 7.7 g/dL Normal 6.4-8.9 [facility] Comment on above: Performed By: #### C BC, CMP, CK, CRP, ESR ####[address]#### PAPITO ####[facility] , Serum globulin measurement b y calculation (mass/volume)Ordered By: Perri Ceja on 11-06-2023 Globulin (S) [Mass/Vol] 3.0 g/dL Normal [facility] Comment on above: Performed By: #### C BC, CMP, CK, CRP, ESR ####[address]#### PAPITO ####[facility] , Serum or plasma albumin/glob ulin mass ratioOrdered By: Perri Ceja on 11-06-2023 Albumin/Globulin [Mass ratio] 1.6 {ratio} Normal [facility] Comment on above: Performed By: #### C BC, CMP, CK, CRP, ESR ####[place] [address] [place]#### PAPITO ####[facility] , Serum or plasma anion gap de terminationOrdered By: Perri Ceja on 11-06-2023 Anion gap [Moles/Vol] 12.7 mmol/L Normal 6.0-15.0 [facility] Comment on above: Performed By: #### C BC, CMP, CK, CRP, ESR ####[place] [address] [place]#### PAPITO ####[facility] , Sodium [Moles/volume] in Ser um or PlasmaOrdered By: Perri Ceja on 11-06-2023 Sodium [Moles/Vol] 139 mmol/L Normal 136-145 [facility] Comment on above: Performed By: #### C BC, CMP, CK, CRP, ESR ####[facility] [address]ii[address]#### PAPITO ####[facility] , Urea nitrogen [Mass/volume] in Serum or PlasmaOrdered By: Perri Ceja on 11-06-2023 Urea nitrogen [Mass/Vol] 17 mg/dL Normal 7-25 [facility] Comment on above: Performed By: #### C BC, CMP, CK, CRP, ESR ####[facility] [id number] [place] [id number] [facility]#### PAPITO ####[facility] , Orders Onlyon 10-02-2023 Orders Only [id number] Antonio Puri i 1975 F Date Provider Department Center 10/02/2023 1971-LU STEPHENS TXP None Family History Problem Relation Age of Onset Fibromyalgia Mother Heart disease Father Hypertension Sister Polycystic kidney disease Sister Hypertension Brother Polycystic kidney disease Brother Family Status - Relation Status Age at Mother Father Sister Brother Normal [facility] Follow-Upon 09-01-2023 Follow-Up [id number] Antonio Puri i 1975 F Date Provider Department Center 09/01/2023 344-SUJIT BERNAL TXP None Family History Problem Relation Age of Onset Fibromyalgia Mother Heart disease Father Hypertension Sister Polycystic kidney disease Sister Hypertension Brother Polycystic kidney disease Brother Family Status - Relation Status Age at Mother Father Sister Brother Level of Service:[id number] AL OFFICE/OUTPATIENT ESTABLISHED MOD MDM 30-39 MIN () Reason for Visit and Comments: Kidney Follow-up [] - Patient reports pain all over her body that comes and goes. She would like to discuss swelling in her feet. Normal [facility] BILIRUBIN, DIRECTon 08-26-20 Magnesium [Mass/Vol] 0.1 mg/dL Normal 0-0.2 [facility] Comment on above: Performed By: #### L AB52 #### [facility] ([facility]) [address] [place] [address] CBC WITH AUTO DIFFERENTIALon 08-26-2023 Basophils (Bld) [#/Vol] 0.05 10*3/uL Normal 0.00-0.20 [facility] Comment on above: Performed By: #### L AB52 #### [facility] ([facility]) [address] [place] [address] Basophils/100 WBC (Bld) 0.6 % Normal 0.0-1.0 [facility] Comment on above: Performed By: #### L AB52 #### [facility] ([facility]) [address] [place] [address] Eosinophils (Bld) [#/Vol] 0.20 10*3/uL Normal 0.00-0.50 [facility] Comment on above: Performed By: #### L AB52 #### [facility] ([facility]) [address] [place] [address] Eosinophils/100 WBC (Bld) 2.5 % Normal 0.0-6.0 [facility] Comment on above: Performed By: #### L AB52 #### [facility] ([facility]) [address] [place] [address] Erythrocyte distribution width (RBC) [Ratio] 14.4 % Normal 11.5-15.0 [facility] Comment on above: Performed By: #### L [id number] #### [facility] ([facility]) [address] [place] [address] ERYTHROCYTE MEAN CORPUSCULAR HEMOGLOBIN CONCENTRATION (G/DL) BY AUTOMATED 32.9 g/dL Normal 32.0-35.0 [facility] Comment on above: Performed By: #### L [id number] #### [facility] ([facility]) [address] [place] [address] Hematocrit (Bld) [Volume fraction] 40.4 % Normal 36.0-48.0 [facility] Comment on above: Performed By: #### L [id number] #### [facility] ([facility]) [address] [place] [address] Hemoglobin (Bld) [Mass/Vol] 13.3 g/dL Normal 12.0-15.0 [facility] Comment on above: Performed By: #### L [id number] #### [facility] ([facility]) [address] [place] [address] Immature granulocytes (Bld) [#/Vol] 0.06 10*3/uL Normal 0.00-0.20 [facility] Comment on above: Performed By: #### L [id number] #### [facility] ([facility]) [address] [place] [address] Immature granulocytes/100 WBC (Bld) 0.7 % Normal 0.0-1.0 [facility] Comment on above: Performed By: #### L [id number] #### [facility] ([facility]) [address] [place] [address] Lymphocytes (Bld) [#/Vol] 1.19 10*3/uL Low 1.20-4.00 [facility] Comment on above: Performed By: #### L [id number] #### [facility] ([facility]) [address] [place] [address] Lymphocytes/100 WBC (Bld) 14.6 % Low 20.0-45.0 [facility] Comment on above: Performed By: #### L [id number] #### [facility] ([facility]) [address] [place] [address] MCH (RBC) [Entitic mass] 28.4 pg Normal 27.0-33.0 [facility] Comment on above: Performed By: #### L [id number] #### [facility] ([facility]) [address] [place] [address] MCV (RBC) [Entitic vol] 86.1 fL Normal 82.0-98.0 [facility] Comment on above: Performed By: #### L [id number] #### [facility] ([facility]) [address] [place] [address] Monocytes (Bld) [#/Vol] 0.42 10*3/uL Normal 0.10-1.00 [facility] Comment on above: Performed By: #### L [id number] #### [facility] ([facility]) [address] [place] [address] Monocytes/100 WBC (Bld) 5.2 % Normal 5.0-12.0 [facility] Comment on above: Performed By: #### L [id number] #### [facility] ([facility]) [address] [address] Neutrophils (Bld) [#/Vol] 6.22 10*3/uL Normal 1.60-7.60 [facility] Comment on above: Performed By: #### L [id number] #### [facility] ([facility]) [address] [address] Neutrophils/100 WBC (Bld) 76.4 % High 40.0-72.0 [facility] Comment on above: Performed By: #### L [id number] #### [facility] ([facility]) [address] [place] [address] NRBC (PER 100 WBCS) BY AUTOMATED COUNT 0.0 % Normal 0 [facility] Comment on above: Performed By: #### L [id number] #### [facility] ([facility]) [address] [place] [address] PLATELETS (10*3/UL) IN BLOOD AUTOMATED COUNT 374 10*3/uL Normal 150-400 [facility] Comment on above: Performed By: #### L [id number] #### [facility] ([facility]) [address] [place] [address] RBC (Bld) [#/Vol] 4.69 10*6/uL Normal 3.80-5.00 [facility] Comment on above: Performed By: #### L [id number] #### [facility] ([facility]) [address] [place] [address] WBC (Bld) [#/Vol] 8.14 10*3/uL Normal 4.00-10.60 [facility] Comment on above: Performed By: #### L [id number] #### [facility] ([facility]) [address] [place] [address] COMPREHENSIVE METABOLIC PANE Jonathan 08-26-2023 Albumin [Mass/Vol] 4.7 g/dL Normal 3.5-5.7 [facility] Comment on above: Performed By: #### L [id number] #### [facility] ([facility]) [address] [place] [address] ALP [Catalytic activity/Vol] 90 U/L Normal 34-104 [facility] Comment on above: Performed By: #### L [id number] #### [facility] ([facility]) [address] [place] [address] ALT [Catalytic activity/Vol] 26 U/L Normal 7-52 [facility] Comment on above: Performed By: #### L [id number] #### [facility] ([facility]) [address] [place] [address] Anion gap [Moles/Vol] 12 mmol/L Normal 7-20 [facility] Comment on above: Performed By: #### L [id number] #### [facility] ([facility]) [address] [place] [address] AST [Catalytic activity/Vol] 22 U/L Normal 13-39 [facility] Comment on above: Performed By: #### L [id number] #### [facility] ([facility]) [address] [place] [address] Bilirubin [Mass/Vol] 0.4 mg/dL Normal 0.3-1.0 [facility] Comment on above: Performed By: #### L [id number] #### [facility] ([facility]) [address] [place] [address] Calcium [Mass/Vol] 9.6 mg/dL Normal 8.6-10.3 [facility] Comment on above: Performed By: #### L [id number] #### [facility] ([facility]) [address] [place] [address] Chloride [Moles/Vol] 103 mmol/L Normal 98-107 [facility] Comment on above: Performed By: #### L [id number] #### [facility] ([facility]) [address] [place] [address] CO2 [Moles/Vol] 26 mmol/L Normal 21-31 [facility] Comment on above: Performed By: #### L [id number] #### [facility] ([facility]) [address] [place] [address] Creatinine [Mass/Vol] 1.12 mg/dL Normal 0.60-1.20 [facility] Comment on above: Performed By: #### L [id number] #### [facility] ([facility]) [address] [place] [address] GLOMERULAR FILTRATION RATE ML/MIN/1.73 SQ M.PREDICTED 61.0 mL/min/1.73m*2 Normal >60.0 [facility] Comment on above: Result Comment: The [facility]???s estimated glomerular filtration rate (eGFR) will [...] group of individuals. Performed By: #### L [id number] #### [facility] ([facility]) [address] [place] [address] Glucose [Mass/Vol] 125 mg/dL High 70-100 [facility] Comment on above: Performed By: #### L [id number] #### [facility] ([facility]) [address] [place] [address] Potassium [Moles/Vol] 3.1 mmol/L Low 3.5-5.1 [facility] Comment on above: Performed By: #### L [id number] #### [facility] ([facility]) [address] [place] [address] Protein [Mass/Vol] 7.4 g/dL Normal 6.0-8.3 [facility] Comment on above: Performed By: #### L [id number] #### [facility] ([facility]) [address] [place] [address] Sodium [Moles/Vol] 138 mmol/L Normal 136-145 [facility] Comment on above: Performed By: #### L [id number] #### [facility] ([facility]) [address] [place] [address] Urea nitrogen [Mass/Vol] 15 mg/dL Normal 7-25 [facility] Comment on above: Performed By: #### L [id number] #### [facility] ([facility]) [address] [place] [address] UREA NITROGEN/CREATININE (MASS RATIO) IN SER/PLAS 13.4 Normal [facility] Comment on above: Performed By: #### L [id number] #### [facility] ([facility]) [address] [place] [address] HEMOGLOBIN A1Con 08-26-2023 Glucose [Mass/Vol] 108 mg/dL Normal [facility] Comment on above: Performed By: #### L [id number] ####[facility] ([facility])[address] [facility] [place] [address] HbA1c (Bld) [Mass fraction] 5.4 % Normal 4.0-6.0 [facility] Comment on above: Performed By: #### L [id number] ####[facility] ([facility])[address] [place] [address] LIPID PANELon 08-26-2023 CHOL/HDL 4.7 mg/dL Normal [facility] Comment on above: Performed By: #### L [id number] ####[facility] ([facility])[address] [place] [address] Cholesterol [Mass/Vol] 198 mg/dL Normal 120-200 [facility] Comment on above: Performed By: #### L [id number] ####[facility] ([facility])[address] [place] [address] Magnesium [Mass/Vol] 248 mg/dL High 40-149 [facility] Comment on above: Result Comment: TRIG LYCERIDE REFERENCE RANGE: 20 YEARS AND OLDER CARDIOVASCULAR RISK LESS THAN 150 mg/dL LOW RISK 150 TO 199 mg/dL BORDERLINE RISK 200 mg/dL AND GREATER HIGH RISK Performed By: #### L [id number] ####[facility] ([facility])[address] [place] [address] Magnesium [Mass/Vol] 106 mg/dL Normal 0-160 [facility] Comment on above: Performed By: #### L [id number] ####[facility] ([facility])[address] [place] [address] Magnesium [Mass/Vol] 42 mg/dL Normal 23-92 [facility] Comment on above: Performed By: #### L [id number] ####[facility] ([facility])[address] [place] [address] NON HDL CHOL. (LDL+VLDL) 156 Normal [facility] Comment on above: Performed By: #### L [id number] ####[facility] ([facility])[address] [place] [address] TOTAL VLDL-C 50 mg/dL High 0-40 [facility] Comment on above: Performed By: #### L [id number] ####[facility] ([facility])[address] [place] [address] Labon 08-26-2023 Lab [id number] Antonio Puri i 1975 F Date Provider Department Center 08/26/2023 2245-[facility] LAB RESOURCE [facility] C Family History Problem Relation Age of Onset Fibromyalgia Mother Heart disease Father Hypertension Sister Polycystic kidney disease Sister Hypertension Brother Polycystic kidney disease Brother Family Status - Relation Status Age at Mother Father Sister Brother Normal [facility] MAGNESIUMon 08-26-2023 Magnesium [Mass/Vol] 1.5 mg/dL Low 1.9-2.7 [facility] Comment on above: Performed By: #### L [id number] #### [facility] ([facility]) [address] [place] [address] PHOSPHORUSon 08-26-2023 Magnesium [Mass/Vol] 2.9 mg/dL Normal 2.5-5.0 [facility] Comment on above: Performed By: #### L [id number] #### [facility] ([facility]) [address] [place] [address] TACROLIMUS LEVELon Tacrolimus (Bld) [Mass/Vol] 9.2 ng/mL Normal 5.0-20.0 [facility] Comment on above: Result Comment: [employer] Tacrolimus assay is a delayed one-step immunoassay for the quantitative determination of tacrolimus in human whole blood using the chemiluminescent microparticle immunoassay (CMIA) technology with flexible assay protocols, referred to as Chemiflex. Performed By: #### L [id number] #### [facility] ([facility]) [address] [place] [address] URIC ACIDon 08-26-2023 Magnesium [Mass/Vol] 5.1 mg/dL Normal 2.3-6.6 [facility] Comment on above: Performed By: #### L [id number] #### [facility] ([facility]) [address] [place] [address] PTH INTACTon 07-30-2022 PTH, Intact 107 pg/mL Critically high 15-65 [facility] Comment on above: Performed By: #### M G, URIC, RENAL #### [facility] [address] [address] [address] Hari Palmer FERRITINon 07-29-2022 Ferritin [Mass/Vol] 194.0 ng/mL Critically high 6.2-137.0 [facility] Comment on above: Performed By: #### M Edy, URIC, RENAL #### [facility] [address] [place] [address] Dr. Hari Palmer HEMOGRAM AND PLATELon 2021 Hematocrit (Bld) [Volume fraction] 32.8 % Critically low 36.0-48.0 [facility] Comment on above: Performed By: #### M G, URIC, RENAL #### [facility] [address] [place] [address] Dr. Hari Palmer Hemoglobin (Bld) [Mass/Vol] 10.8 g/dL Critically low 12.0-16.0 [facility] Comment on above: Performed By: #### M G, URIC, RENAL #### [facility] [address] [place] [address] Dr. Hari Palmer MCH (RBC) [Entitic mass] 31.7 pg Normal 26.7-34.0 [facility] Comment on above: Performed By: #### M G, URIC, RENAL #### [facility] [address] [place] [address] Dr. Hari Palmer MCHC (RBC) [Mass/Vol] 32.9 g/dL Normal 29.9-35.2 [facility] Comment on above: Performed By: #### M G, URIC, RENAL #### [facility] [address] [place] [address] Dr. Hari Palmer MCV (RBC) [Entitic vol] 96.2 fL Normal 81.0-99.0 [facility] Comment on above: Performed By: #### M G, URIC, RENAL #### [facility] [address] [place] [address] Dr. Hari Palmer PLT 297 103/ul Normal 150-450 [facility] Comment on above: Performed By: #### M G, URIC, RENAL #### [facility] [address] [place] [address] Dr. Hari Palmer RBC 3.41 106/ul Critically low 4.20-5.40 [facility] Comment on above: Performed By: #### M G, URIC, RENAL #### [facility] [address] [place], [place] [id number] Dr. Hari Palmer WBC 7.1 103/ul Normal 4.0-11.0 [facility] Comment on above: Performed By: #### M G, URIC, RENAL #### [facility] [address] [address] [address] Hari Palmer IRON AND TIBCon 07-29-2022 % SATURATION 19.0 % Normal [facility] Comment on above: Performed By: #### M G, URIC, RENAL #### [facility] [address] [place] [address] Dr. Hari Palmer Iron [Mass/Vol] 48.0 ug/dL Critically low 50.0-170.0 [facility] Comment on above: Performed By: #### M G, URIC, RENAL #### [facility] [address] [place] [address] Dr. Hari Palmer TIBC DIRECT 252.0 ug/dL Normal 250.0-450.0 [facility] Comment on above: Performed By: #### M G, URIC, RENAL #### [facility] [address] [place] [address] Dr. Hari Palmer MAGNESIUMon 07-29-2022 Magnesium [Mass/Vol] 2.0 mg/dL Normal 1.8-2.4 [facility] Comment on above: Performed By: #### M G, URIC, RENAL #### [facility] [address] [place] [address] Dr. Hari Palmer RENAL FUNCTION PANELon 07-29 Albumin [Mass/Vol] 3.6 g/dL Normal 3.4-5.0 [facility] Comment on above: Performed By: #### M G, URIC, RENAL #### [facility] [address] [address] [address] Hari Palmer Calcium [Mass/Vol] 8.7 mg/dL Normal 8.5-10.1 [facility] Comment on above: Performed By: #### M G, URIC, RENAL #### [facility] [address] [address] [address] Hari Palmer Chloride [Moles/Vol] 104 mmol/L Normal 98-107 [facility] Comment on above: Performed By: #### M G, URIC, RENAL #### [facility] [address] [address] [address] Hari Palmer CO2 [Moles/Vol] 21.8 mmol/L Normal 21.0-32.0 [facility] Comment on above: Performed By: #### M G, URIC, RENAL #### [facility] [address] [place] [address] Dr. Hari Palmer Creatinine [Mass/Vol] 3.83 mg/dL Critically high 0.55-1.02 [facility] Comment on above: Performed By: #### M G, URIC, RENAL #### [facility] [address] [place] [address] Dr. Hari Palmer EGFR-AF MACANESE 15 mL/min/1.73m2 Critically low >=60 [facility] Comment on above: Performed By: #### M G, URIC, RENAL #### [facility] [address] [place] [address] Dr. Hari Palmer EGFR-NON AF MACANESE 13 mL/min/1.73m2 Critically low >=60 [facility] Comment on above: Performed By: #### M G, URIC, RENAL #### [facility] [address] [place] [address] Dr. Hari Palmer Glucose [Mass/Vol] 108 mg/dL Critically high 74-106 [facility] Comment on above: Performed By: #### M G, URIC, RENAL #### [facility] [address] [place] [address] Dr. Hari Palmer Phosphate [Mass/Vol] 5.4 mg/dL Critically high 2.6-4.7 [facility] Comment on above: Performed By: #### M G, URIC, RENAL #### [facility] [address] [place] [address] Dr. Hari Palmer Potassium [Moles/Vol] 3.9 mmol/L Normal 3.5-5.1 [facility] Comment on above: Performed By: #### M G, URIC, RENAL #### [facility] [address] [address] [address] Hari Palmer Sodium [Moles/Vol] 137 mmol/L Normal 136-145 [facility] Comment on above: Performed By: #### M G, URIC, RENAL #### [facility] [address] [place] [address] Dr. Hari Palmer Urea nitrogen [Mass/Vol] 47.0 mg/dL Critically high 7.0-18.0 [facility] Comment on above: Performed By: #### M G, URIC, RENAL #### [facility] [address] [place] [address] Dr. Hari Palmer URIC ACID SERUMon 07-29-2022 Urate [Mass/Vol] 6.3 mg/dL Critically high 2.6-6.0 [facility] Comment on above: Performed By: #### M G, URIC, RENAL #### [facility] [address] [place] [address] Dr. Hari Palmer URINE T PROTEIN CREAT RATIOo n 07-29-2022 Protein (U) [Mass/Vol] 29.7 mg/dL Critically high <=12.0 [facility] Comment on above: Performed By: #### M G, URIC, RENAL #### [facility] [address] [place] [address] Dr. Hari Palmer UR PROT CREAT RAT 0.56 Normal [facility] Comment on above: Performed By: #### M G, URIC, RENAL #### [facility] [address] [place] [address] Dr. Hari Palmer URINE CREAT 53.35 mg/dL Normal 20.00-300.00 [facility] Comment on above: Performed By: #### M G, URIC, RENAL #### [facility] [address] [place] [address] Dr. Hari Palmer VITAMIN D 25 OHon 07-29-2022 VIT D 25-OH 38.8 ng/mL Normal [facility] Comment on above: Performed By: #### M G, URIC, RENAL #### [facility] [address] [place] [address] Dr. Hari Palmer VIT D RANGES SEE BELOW Normal [facility] Comment on above: Result Comment: <20 ng/mL Vit D deficient 20 - <30 ng/mL Vit D insufficient 30 - 100 ng/mL Vit D sufficient >100 ng/mL Potential Toxicity Performed By: #### M G, URIC, RENAL #### [facility] [address] [address] [address] Hari Palmer Albumin [Mass/volume] in Ser um or PlasmaOrdered By: Stanley Forman on 06-20-2022 Albumin [Mass/Vol] 3.9 g/dL 3.2-5.5 [facility] Basophils Auto (Bld) [#/Vol] Ordered By: Stanley Forman on 06-20-2022 Basophils (Bld) [#/Vol] 0.1 10*3/uL 0.0-0.2 [facility] Basophils/100 WBC Auto (Bld) Ordered By: Stanley Forman on 06-20-2022 Basophils/100 WBC (Bld) 0.7 % . [facility] Blood hemoglobin measurement (mass/volume)Ordered By: Stanley Forman on 06-20-2022 Hemoglobin (Bld) [Mass/Vol] 10.8 g/dL 11.8-15.4 [facility] Blood leukocytes automated c ount (number/volume)Ordered By: Stanley Forman on 06-20-2022 WBC (Bld) [#/Vol] 11.8 10*3/uL 4.5-11.0 [facility] C reactive protein [Mass/vol ume] in Serum or PlasmaOrdered By: Stanley Forman on 06-20-2022 CRP [Mass/Vol] 5.2 mg/dL 0.0-1.0 [facility] Creatinine and Glomerular fi ltration rate.predicted panel (S/P/Bld)Ordered By: Stanley Forman on 06-20-2022 Creatinine [Mass/Vol] 4.49 mg/dL 0.44-1.03 [facility] Eosinophils Auto (Bld) [#/Vo l]Ordered By: Stanley Forman on 06-20-2022 Eosinophils (Bld) [#/Vol] 0.4 10*3/uL 0.0-0.45 [facility] Eosinophils/100 WBC Auto (Bl d)Ordered By: Stanley Forman on 06-20-2022 Eosinophils/100 WBC (Bld) 3.2 % . [facility] Erythrocyte distribution wid th Auto (RBC) [Ratio]Ordered By: Stanley Forman on 06-20-2022 Erythrocyte distribution width (RBC) [Ratio] 14.0 % 11.9-15.3 [facility] Erythrocyte sedimentation ra te by Photometric methodOrdered By: Stanley Forman on 06-20-2022 ESR Photometric method (Bld) [Velocity] 67 mm/hr 0-19 [facility] Estimated glomerular filtrat ion rate (GFR) non- AmericanOrdered By: Stanley Forman on 06-20-2022 GFR/1.73 sq M.predicted among non-blacks MDRD (S/P/Bld) [Vol rate/Area] 11 mL/Min [facility] Globulin Calc (S) [Mass/Vol] Ordered By: Stanley Forman on 06-20-2022 Globulin (S) [Mass/Vol] 3.5 g/dL [facility] Hematocrit Auto (Bld) [Volum e fraction]Ordered By: Stanley Forman on 06-20-2022 Hematocrit (Bld) [Volume fraction] 33.1 % 34.0-46.4 [facility] - Hematology and Cell countsOrdered By: Stanley Forman on 06-20-2022 Nucleated RBC/100 WBC (Bld) [Ratio] 0.0 % 0-0.5 [facility] Lymphocytes Auto (Bld) [#/Vo l]Ordered By: Stanley Forman on 06-20-2022 Lymphocytes (Bld) [#/Vol] 1.5 10*3/uL 1.00-4.8 [facility] Lymphocytes/100 WBC Auto (Bl d)Ordered By: Stanley Forman on 06-20-2022 Lymphocytes/100 WBC (Bld) 12.3 % . [facility] MCH Auto (RBC) [Entitic mass ]Ordered By: Stanley Forman on 06-20-2022 MCH (RBC) [Entitic mass] 31.1 pg 24.7-34.3 [facility] MCHC Auto (RBC) [Mass/Vol]Or dered By: Stanley Forman on 06-20-2022 MCHC (RBC) [Mass/Vol] 32.5 g/dL 32.0-35.0 [facility] MCV Auto (RBC) [Entitic vol] Ordered By: Stanley Forman on 06-20-2022 MCV (RBC) [Entitic vol] 95.6 fL 80-100 [facility] Monocytes Auto (Bld) [#/Vol] Ordered By: Stanley Forman on 06-20-2022 Monocytes (Bld) [#/Vol] 0.5 10*3/uL 0.0-0.8 [facility] Monocytes/100 WBC Auto (Bld) Ordered By: Stanley Forman on 06-20-2022 Monocytes/100 WBC (Bld) 4.1 % . [facility] Neutrophils Auto (Bld) [#/Vo l]Ordered By: Stanley Forman on 06-20-2022 Neutrophils (Bld) [#/Vol] 9.4 10*3/uL 1.8-7.7 [facility] Neutrophils/100 WBC Auto (Bl d)Ordered By: Stanley Forman on 06-20-2022 Neutrophils/100 WBC (Bld) 79.7 % . [facility] No Panel InformationOrdered By: Stanley Forman on 06-20-2022 Estimated GFR () 13 mL/Min [facility] Comment on above: GFR estimated refere nce range: According to KDOQI guidelines, <60 ml/min/1.73m2 is sufficient to diagnose a patient with chronic kidney disease. Pharmacy Creatinine Clearance (Chem 16.48 [facility] Platelet mean volume Auto (B ld) [Entitic vol]Ordered By: Stanley Forman on 06-20-2022 Platelet mean volume (Bld) [Entitic vol] 7.0 fL 6.3-10.7 [facility] Platelets Auto (Bld) [#/Vol] Ordered By: Stanley Forman on 06-20-2022 Platelets (Bld) [#/Vol] 287 10*3/uL 150-450 [facility] Protein [Mass/volume] in Ser um or PlasmaOrdered By: Stanley Forman on 06-20-2022 Protein [Mass/Vol] 7.4 g/dL 6.1-7.9 [facility] RBC Auto (Bld) [#/Vol]Ordere d By: Stanley Forman on 06-20-2022 RBC (Bld) [#/Vol] 3.46 10*6/uL 3.60-5.00 [facility] Serum or plasma alanine cesar otransferase measurement without P-5'-P (enzymatic activiOrdered By: Stanley Forman on 06-20-2022 ALT No additional P-5'-P [Catalytic activity/Vol] 11 U/L 10-60 [facility] Serum or plasma albumin/glob ulin mass ratioOrdered By: Stanley Forman on 06-20-2022 Albumin/Globulin [Mass ratio] 1.1 {ratio} [facility] Serum or plasma alkaline gina sphatase measurement (enzymatic activity/volume)Ordered By: Stanley Forman on 06-20-2022 ALP [Catalytic activity/Vol] 82 U/L 32-92 [facility] Serum or plasma anion gap de terminationOrdered By: Stanley Forman on 06-20-2022 Anion gap [Moles/Vol] 16.2 mmol/L 6.0-15.0 [facility] Serum or plasma aspartate am inotransferase measurement (enzymatic activity/volume)Ordered By: Stanley Forman on 06-20-2022 AST [Catalytic activity/Vol] 15 U/L 10-42 [facility] Serum or plasma calcium ge urement (mass/volume)Ordered By: Stanley Forman on 06-20-2022 Calcium [Mass/Vol] 9.3 mg/dL 8.2-10.2 [facility] Serum or plasma chloride lee surement (moles/volume)Ordered By: Stanley Forman on 06-20-2022 Chloride [Moles/Vol] 103 mmol/L 95-114 [facility] Serum or plasma glucose ge urement (mass/volume)Ordered By: Stanley Forman on 06-20-2022 Glucose [Mass/Vol] 75 mg/dL 70-100 [facility] Comment on above: ADA recommended refe rence rangeRandom Glucose Reference Range is dependent on time and content of last meal. Glucose of more than 200 mg/dL in a nonstressed, ambulatory subject supports the diagnosis of Diabetes Mellitus. Serum or plasma potassium me asurement (moles/volume)Ordered By: Stanley Forman on 06-20-2022 Potassium [Moles/Vol] 4.3 mmol/L 3.5-5.1 [facility] Serum or plasma sodium measu rement (moles/volume)Ordered By: Stanley Forman on 06-20-2022 Sodium [Moles/Vol] 135 mmol/L 136-146 [facility] Serum or plasma total biliru bin measurement (mass/volume)Ordered By: Stanley Forman on 06-20-2022 Bilirubin [Mass/Vol] 0.3 mg/dL 0.3-1.2 [facility] Serum or plasma total carbon dioxide measurement (moles/volume)Ordered By: Stanley Forman on 06-20-2022 CO2 [Moles/Vol] 20.1 mmol/L 22.0-30.0 [facility] Serum or plasma urea nitroge n measurement (mass/volume)Ordered By: Stanley Forman on 06-20-2022 Urea nitrogen [Mass/Vol] 42 mg/dL - [facility] COVID-19 Positive/NegativeOr dered By: Jesus Parham on 06-14-2022 SARS-CoV-2 (COVID-19) N gene AMBERLY+probe Ql (Resp) Negative Negative [facility] Comment on above: Testing for SARS-CoV -2 by RT-PCR This test was developed and its performance characteristics determined by [employer] ([employer]) and validated at the [facility]. This test has not been FDA [...] and its performance characteristics determined by [employer] ([employer]) and validated at the [facility]. This test has not been FDA [...] 125 10.8 U/mL Normal 0.0-38.1 [facility] Comment on above: Result Comment: [employer] Electrochemiluminescence Immunoassay (ECLIA) . Values obtained with different assay methods or kits cannot be used interchangeably. Results cannot be interpreted as absolute evidence of the presence or absence of malignant disease. Performed By: #### M G, URIC, RENAL #### [facility] [address] [place] [address] Dr. Hari Palmer CEAon 06-08-2022 CEA 0.9 ng/mL Normal 0.0-4.7 [facility] Comment on above: Result Comment: Nons mokers <3.9 Smokers <5.6 . [employer] Electrochemiluminescence Immunoassay (ECLIA) . Values obtained with different assay methods or kits cannot be used interchangeably. Results cannot be interpreted as absolute evidence of the presence or absence of malignant disease. Performed By: #### C EA. #### [facility] [address] [place] [address] Dr. Hari Palmer Basophils Auto (Bld) [#/Vol] Ordered By: Jesus Parham on 06-05-2022 Basophils (Bld) [#/Vol] 0.0 10*3/uL 0.0-0.2 [facility] Basophils/100 WBC Auto (Bld) Ordered By: Jesus Parham on 06-05-2022 Basophils/100 WBC (Bld) 0.3 % . [facility] Blood hemoglobin measurement (mass/volume)Ordered By: Jesus Parham on 06-05-2022 Hemoglobin (Bld) [Mass/Vol] 12.0 g/dL 11.8-15.4 [facility] Blood leukocytes automated c ount (number/volume)Ordered By: Jesus Parham on 06-05-2022 WBC (Bld) [#/Vol] 8.5 10*3/uL 4.5-11.0 [facility] Creatinine and Glomerular fi ltration rate.predicted panel (S/P/Bld)Ordered By: Jesus Parham on 06-05-2022 Creatinine [Mass/Vol] 3.52 mg/dL 0.44-1.03 [facility] Eosinophils Auto (Bld) [#/Vo l]Ordered By: Jesus Parham on 06-05-2022 Eosinophils (Bld) [#/Vol] 0.2 10*3/uL 0.0-0.45 [facility] Eosinophils/100 WBC Auto (Bl d)Ordered By: Jesus Parham on 06-05-2022 Eosinophils/100 WBC (Bld) 2.7 % . [facility] Erythrocyte distribution wid th Auto (RBC) [Ratio]Ordered By: Jesus Parham on 06-05-2022 Erythrocyte distribution width (RBC) [Ratio] 14.2 % 11.9-15.3 [facility] Estimated glomerular filtrat ion rate (GFR) non- AmericanOrdered By: Jesus Parham on 06-05-2022 GFR/1.73 sq M.predicted among non-blacks MDRD (S/P/Bld) [Vol rate/Area] 14 mL/Min [facility] Hematocrit Auto (Bld) [Volum e fraction]Ordered By: Jesus Parham on 06-05-2022 Hematocrit (Bld) [Volume fraction] 35.8 % 34.0-46.4 [facility] - Hematology and Cell countsOrdered By: Jesus Parham on 06-05-2022 Nucleated RBC/100 WBC (Bld) [Ratio] 0.1 % 0-0.5 [facility] Lymphocytes Auto (Bld) [#/Vo l]Ordered By: Jesus Parham on 06-05-2022 Lymphocytes (Bld) [#/Vol] 1.6 10*3/uL 1.00-4.8 [facility] Lymphocytes/100 WBC Auto (Bl d)Ordered By: Jesus Parham on 06-05-2022 Lymphocytes/100 WBC (Bld) 19.3 % . [facility] MCH Auto (RBC) [Entitic mass ]Ordered By: Jesus Parham on 06-05-2022 MCH (RBC) [Entitic mass] 31.5 pg 24.7-34.3 [facility] MCHC Auto (RBC) [Mass/Vol]Or dered By: Jesus Parham on 06-05-2022 MCHC (RBC) [Mass/Vol] 33.3 g/dL 32.0-35.0 [facility] MCV Auto (RBC) [Entitic vol] Ordered By: Jesus Parham on 06-05-2022 MCV (RBC) [Entitic vol] 94.4 fL 80-100 [facility] Monocytes Auto (Bld) [#/Vol] Ordered By: Jesus Parham on 06-05-2022 Monocytes (Bld) [#/Vol] 0.3 10*3/uL 0.0-0.8 [facility] Monocytes/100 WBC Auto (Bld) Ordered By: Jesus Parham on 06-05-2022 Monocytes/100 WBC (Bld) 3.9 % . [facility] Neutrophils Auto (Bld) [#/Vo l]Ordered By: Jesus Parham on 06-05-2022 Neutrophils (Bld) [#/Vol] 6.2 10*3/uL 1.8-7.7 [facility] Neutrophils/100 WBC Auto (Bl d)Ordered By: Jesus Parham on 06-05-2022 Neutrophils/100 WBC (Bld) 73.8 % . [facility] No Panel InformationOrdered By: Jesus Parham on 06-05-2022 Estimated GFR () 17 mL/Min [facility] Comment on above: GFR estimated refere nce range: According to KDOQI guidelines, <60 ml/min/1.73m2 is sufficient to diagnose a patient with chronic kidney disease. Pharmacy Creatinine Clearance (Chem N/A [facility] Platelet mean volume Auto (B ld) [Entitic vol]Ordered By: Jesus Parham on 06-05-2022 Platelet mean volume (Bld) [Entitic vol] 7.3 fL 6.3-10.7 [facility] Platelets Auto (Bld) [#/Vol] Ordered By: Jesus Parham on 06-05-2022 Platelets (Bld) [#/Vol] 312 10*3/uL 150-450 [facility] RBC Auto (Bld) [#/Vol]Ordere d By: Jesus Parham on 06-05-2022 RBC (Bld) [#/Vol] 3.80 10*6/uL 3.60-5.00 [facility] Serum or plasma anion gap de terminationOrdered By: Jesus Parham on 06-05-2022 Anion gap [Moles/Vol] 15.1 mmol/L 6.0-15.0 [facility] Serum or plasma calcium ge urement (mass/volume)Ordered By: Jesus Parham on 06-05-2022 Calcium [Mass/Vol] 9.5 mg/dL 8.2-10.2 [facility] Serum or plasma chloride lee surement (moles/volume)Ordered By: Jesus Parham on 06-05-2022 Chloride [Moles/Vol] 106 mmol/L 95-114 [facility] Serum or plasma glucose ge urement (mass/volume)Ordered By: Jesus Parham on 06-05-2022 Glucose [Mass/Vol] 91 mg/dL 70-100 [facility] Comment on above: ADA recommended [...] on 06-05-2022 Potassium [Moles/Vol] 4.4 mmol/L 3.5-5.1 [facility] Serum or plasma sodium measu rement (moles/volume)Ordered By: Jesus Parham on 06-05-2022 Sodium [Moles/Vol] 137 mmol/L 136-146 [facility] Serum or plasma total carbon dioxide measurement (moles/volume)Ordered By: Jesus Parham on 06-05-2022 CO2 [Moles/Vol] 20.3 mmol/L 22.0-30.0 [facility] Serum or plasma urea nitroge n measurement (mass/volume)Ordered By: Jesus Parham on 06-05-2022 Urea nitrogen [Mass/Vol] 38 mg/dL 9-23 [facility] PTH INTACTon 04-29-2022 PTH, Intact 191 pg/mL Critically high 15-65 [facility] Comment on above: Performed By: #### M G, URIC, RENAL #### [facility] [address] [address] [address] Hari Palmer VIT D 25-OH LABCORPon 2021 Vitamin D, 25-Hydroxy 33.6 ng/mL Normal 30.0-100.0 [facility] Comment on above: Result Comment: Ning min D deficiency has been defined by the [place] of [employer] and an Endocrine Society practice guideline as a level of serum 25-OH vitamin D less than 20 ng/mL (1,2). The Endocrine Society went on to further define vitamin D insufficiency as a level between 21 and 29 ng/mL (2). 1. IOM ([place] of [employer]). 2010. Dietary reference intakes for calcium and D. [place]: The National Academies Press. 2. Chantel MF, Landen BURGOS, Eliseo STEPHENS, et al. Evaluation, treatment, and prevention of vitamin D deficiency: an Endocrine Society clinical practice guideline. JCEM. 2010; 96(6):1911-30. Performed By: #### M G, URIC, RENAL #### [facility] [address] [place] [address] Dr. Hari Palmer ABO AND RH TYPEon 04-27-2022 ABO and Rh group Nom (Bld) ABO Rh Typing O Rh Positive Normal [facility] Comment on above: Performed By: #### M G, URIC, RENAL #### [facility] [address] [place] [address] Dr. Hari Palmer FERRITINon 04-27-2022 Ferritin [Mass/Vol] 273.0 ng/mL Critically high 6.2-137.0 [facility] Comment on above: Performed By: #### M G, URIC, RENAL #### [facility] [address] [place] [address] Dr. Hari Palmer HEMOGRAM AND PLATELon 2021 Hematocrit (Bld) [Volume fraction] 33.9 % Critically low 36.0-48.0 [facility] Comment on above: Performed By: #### M G, URIC, RENAL #### [facility] [address] [place] [address] Dr. Hari Palmer Hemoglobin (Bld) [Mass/Vol] 11.4 g/dL Critically low 12.0-16.0 [facility] Comment on above: Performed By: #### M G, URIC, RENAL #### [facility] [address] [place] [address] Dr. Hari Palmer MCH (RBC) [Entitic mass] 31.7 pg Normal 26.7-34.0 [facility] Comment on above: Performed By: #### M G, URIC, RENAL #### [facility] [address] [place] [address] Dr. Hari Palmer MCHC (RBC) [Mass/Vol] 33.6 g/dL Normal 29.9-35.2 [facility] Comment on above: Performed By: #### M G, URIC, RENAL #### [facility] [address] [place] [address] Dr. Hari Palmer MCV (RBC) [Entitic vol] 94.2 fL Normal 81.0-99.0 T [facility] Comment on above: Performed By: #### M G, URIC, RENAL #### [facility] [address] [place] [address] Dr. Hari Palmer PLT 333 103/ul Normal 150-450 [facility] Comment on above: Performed By: #### M G, URIC, RENAL #### [facility] [address] [place] [address] Dr. Hari Palmer RBC 3.60 106/ul Critically low 4.20-5.40 [facility] Comment on above: Performed By: #### M G, URIC, RENAL #### [facility] [address] [place] [address] Dr. Hari Palmer WBC 9.7 103/ul Normal 4.0-11.0 [facility] Comment on above: Performed By: #### M G, URIC, RENAL #### [facility] [address] [place] [address] Dr. Hari Palmer IRON AND TIBCon 04-27-2022 % SATURATION 20.1 % Normal [facility] Comment on above: Performed By: #### M G, URIC, RENAL #### [facility] [address] [place] [address] Dr. Hari Palmer Iron [Mass/Vol] 57.0 ug/dL Normal 50.0-170.0 [facility] Comment on above: Performed By: #### M G, URIC, RENAL #### [facility] [address] [place] [address] Dr. Hari Palmer TIBC DIRECT 283.0 ug/dL Normal 250.0-450.0 [facility] Comment on above: Performed By: #### M G, URIC, RENAL #### [facility] [address] [place] [address] Dr. Hari Palmer MAGNESIUMon 04-27-2022 Magnesium [Mass/Vol] 2.1 mg/dL Normal 1.8-2.4 [facility] Comment on above: Performed By: #### R ENAL, URIC, MG #### [facility] [address] [place] [address] Dr. Hari Palmer RENAL FUNCTION PANELon 04-27 Albumin [Mass/Vol] 3.6 g/dL Normal 3.4-5.0 [facility] Comment on above: Performed By: #### R ENAL, URIC, MG #### [facility] [address] [address] [address] Hari Palmer Calcium [Mass/Vol] 9.0 mg/dL Normal 8.5-10.1 [facility] Comment on above: Performed By: #### R ENAL, URIC, MG #### [facility] [address] [address] [address] Hari Palmer Chloride [Moles/Vol] 104 mmol/L Normal 98-107 [facility] Comment on above: Performed By: #### R ENAL, URIC, MG #### [facility] [address] [place] [address] Dr. Hari Palmer CO2 [Moles/Vol] 23.0 mmol/L Normal 21.0-32.0 [facility] Comment on above: Performed By: #### R ENAL, URIC, MG #### [facility] [address] [address] [address] Hari Palmer Creatinine [Mass/Vol] 3.38 mg/dL Critically high 0.55-1.02 [facility] Comment on above: Performed By: #### R ENAL, URIC, MG #### [facility] [address] [address] [address] Hari Palmer EGFR-AF MACANESE 18 mL/min/1.73m2 Critically low >=60 [facility] Comment on above: Performed By: #### R ENAL, URIC, MG #### [facility] [address] [address] [address] Hari Palmer EGFR-NON AF MACANESE 15 mL/min/1.73m2 Critically low >=60 [facility] Comment on above: Performed By: #### R ENAL, URIC, MG #### [facility] [address] [address] [address] Hari Palmer Glucose [Mass/Vol] 113 mg/dL Critically high 74-106 T [facility] Comment on above: Performed By: #### R ENAL, URIC, MG #### [facility] [address] [place] [address] Dr. Hari Palmer Phosphate [Mass/Vol] 4.4 mg/dL Normal 2.6-4.7 [facility] Comment on above: Performed By: #### R ENAL, URIC, MG #### [facility] [address] [place] [address] Dr. Hari aPlmer Potassium [Moles/Vol] 4.0 mmol/L Normal 3.5-5.1 [facility] Comment on above: Performed By: #### R ENAL, URIC, MG #### [facility] [address] [place] [address] Dr. Hari Palmer Sodium [Moles/Vol] 137 mmol/L Normal 136-145 [facility] Comment on above: Performed By: #### R ENAL, URIC, MG #### [facility] [address] [place] [address] Dr. Hari Palmer Urea nitrogen [Mass/Vol] 44.0 mg/dL Critically high 7.0-18.0 [facility] Comment on above: Performed By: #### R ENAL, URIC, MG #### [facility] [address] [place] [address] Dr. Hari Palmer URIC ACID SERUMon 04-27-2022 Urate [Mass/Vol] 6.6 mg/dL Critically high 2.6-6.0 [facility] Comment on above: Performed By: #### R ENAL, URIC, MG #### [facility] [address] [place] [address] Dr. Hari Palmer URINE T PROTEIN CREAT RATIOo n 04-27-2022 Protein (U) [Mass/Vol] 31.4 mg/dL Critically high <=12.0 [facility] Comment on above: Performed By: #### M G, URIC, RENAL #### [facility] [address] [place] [address] Dr. Hari Palmer UR PROT CREAT RAT 0.55 Normal [facility] Comment on above: Performed By: #### M G, URIC, RENAL #### [facility] [address] [place], [place] [address] Dr. Hari Palmer URINE CREAT 57.50 mg/dL Normal 20.00-300.00 [facility] Comment on above: Performed By: #### M G, URIC, RENAL #### [facility] [address] [place], [place] [address] Dr. Hari Palmer ECHOCARDIO M/2D COMPLETEon 0 03-29-2022 ECHOCARDIO M/2D COMPLETE Patient: MANDEEP PURI Exam Date: 03/29/2022 : 1975 Gender:F Ordering : HAIDER FRENCH M.D. Admission #: [id number] Family : Order #: [id number] CLICK HERE TO VIEW EXAM ECHOCARDIOGRAM REPORT [...] Area(A4C): 17.00 cm2 Left Atrium Systolic Volume(A2C): 57297 mm3 Left Atrium Systolic Volume(A4C): 54553 mm3 Mitral Valve MV E to A Ratio: 0.80 Deceleration Baldwin: 3210 mm/s2 Mitral Valve A-Wave Peak Velocity: [...] Alonzo M.D. on 04/01/2022 at 12:33 Normal [facility] COVID-19 SOFIAOrdered By: Mary Beth Jones on 03-28-2022 SARS-CoV+SARS-CoV-2 (COVID-19) Ag IA.rapid Ql (Resp) Negative Negative [facility] Comment on above: This is a duplicate Ada SARS Antigen (GLORIA) result to be used for statistical tracking purpose only. No Panel InformationOrdered By: Shabbir Jones on 03-28-2022 SARS Antigen (LFIA) [facility] BLOOD TYPE AND RHon 02-13-20 ABO INTERPRETATION O Normal [facility] Comment on above: Performed By: #### 3 1397, 21630, 30971, 33075, 99112 #### [facility] [address] RH INTERPRETATION Positive Normal [facility] Comment on above: Performed By: #### 3 1397, 33583, 17998, 86950, 14232 #### [facility] [address] BNP (B-TYPE NATRIURETIC PEPT JOEL)on 02-12-2022 Natriuretic peptide B (Bld) [Mass/Vol] 10 pg/mL Normal 0-100 [facility] Comment on above: Result Comment: Give n the appropriate clinical setting a BNP result of >100 pg/mL indicates congestive heart failure. Performed By: #### 8 5123, 03640 #### [facility] [address] CBC W/DIFFon 02-12-2022 ABS IMM GRANS 0.2 10*3/uL Normal 0.0-0.2 [facility] Comment on above: Performed By: #### 3 1397, 38864, 11396, 41096, 61742 #### [facility] [address] ABS NEUTROPHILS 7.8 10*3/uL High 1.6-7.6 [facility] Comment on above: Performed By: #### 3 1397, 81004, 69723, 10113, 38124 #### [facility] [address] Basophils (Bld) [#/Vol] 0.1 10*3/uL Normal 0.0-0.2 [facility] Comment on above: Performed By: #### 3 1397, 24262, 18663, 70887, 38626 #### [facility] [address] Basophils/100 WBC (Bld) 0.6 % Normal 0.0-1.0 [facility] Comment on above: Performed By: #### 3 1397, 58620, 48793, 71121, 80256 #### [facility] [address] [place] [address], [facility] Eosinophils (Bld) [#/Vol] 0.3 10*3/uL Normal 0.0-0.5 [facility] Comment on above: Performed By: #### 3 1397, 15935, 60533, 10512, 24671 #### [facility] [address] [place] [address], [facility] Eosinophils/100 WBC (Bld) 2.5 % Normal 0.0-6.0 [facility] Comment on above: Performed By: #### 3 1397, 41087, 57883, 76133, 38647 #### [facility] [address] Erythrocyte distribution width (RBC) [Ratio] 13.6 % Normal 11.5-15.0 [facility] Comment on above: Performed By: #### 3 1397, 57143, 22489, 95484, 90253 #### [facility] [address] Hematocrit (Bld) [Volume fraction] 34.5 % Low 36.0-45.0 [facility] Comment on above: Performed By: #### 3 1397, 22648, 61680, 91432, 38856 #### [facility] [address] [place] [address], [facility] Hemoglobin (Bld) [Mass/Vol] 11.3 g/dL Low 12.0-15.0 [facility] Comment on above: Performed By: #### 3 1397, 53382, 83082, 41497, 13218 #### [facility] [address] [place] [address], [place] IMMATURE GRANS 1.4 % High 0.0-1.0 [facility] Comment on above: Performed By: #### 3 1397, 46079, 65442, 17562, 96125 #### [facility] [address] [facility] [address] Lymphocytes (Bld) [#/Vol] 2.0 10*3/uL Normal 1.2-4.0 [facility] Comment on above: Performed By: #### 3 1397, 90724, 54392, 85036, 91006 #### [facility] [address] Lymphocytes/100 WBC (Bld) 18.6 % Low 20.0-45.0 [facility] Comment on above: Performed By: #### 3 1397, 48541, 73185, 16098, 47486 #### [facility] [address] [facility]. [address] MCH (RBC) [Entitic mass] 31.3 pg Normal 27.0-33.0 [facility] Comment on above: Performed By: #### 3 1397, 85061, 83012, 57978, 58396 #### [facility] [address] [facility] [address] MCHC (RBC) [Mass/Vol] 32.8 g/dL Normal 32.0-35.0 [facility] Comment on above: Performed By: #### 3 1397, 23354, 81459, 94079, 32225 #### [facility] [address] [place] [address], [facility] MCV (RBC) [Entitic vol] 95.6 fL Normal 82.0-98.0 [facility] Comment on above: Performed By: #### 3 1397, 46197, 01584, 43663, 88315 #### [facility] [address] [place] [address], [facility] Monocytes (Bld) [#/Vol] 0.5 10*3/uL Normal 0.1-1.0 [facility] Comment on above: Performed By: #### 3 1397, 96722, 02563, 11455, 68574 #### [facility] [address] [place] [id number], [facility] MONOS 4.9 % Low 5.0-12.0 [facility] Comment on above: Performed By: #### 3 1397, 67516, 24414, 86329, 14671 #### [facility] [address] [place] [address], [facility] Neutrophils/100 WBC (Bld) 72.0 % Normal 40.0-72.0 [facility] Comment on above: Performed By: #### 3 1397, 84035, 28270, 13007, 87973 #### [facility] [address] [place] [id number], [facility] Nucleated RBC/100 WBC (Bld) [Ratio] 0 % Normal 0-0 [facility] Comment on above: Performed By: #### 3 1397, 45273, 35993, 94696, 58959 #### [facility] [facility] [address] [facility] [place] [address], [facility] PLAT CNT 315 10*3/uL Normal 150-400 [facility] Comment on above: Performed By: #### 3 1397, 05479, 09278, 93867, 87520 #### [facility] [address] [place] [address], [facility] RBC (Bld) [#/Vol] 3.61 10*6/uL Low 3.80-5.00 [facility] Comment on above: Performed By: #### 3 1397, 55559, 65531, 00968, 70228 #### [facility] [address] [place] [address], [place] WBC (Bld) [#/Vol] 10.78 10*3/uL High 4.00-10.60 [facility] Comment on above: Performed By: #### 3 1397, 94508, 95499, 35020, 43070 #### [address] CHEST AND LATERALon 02-13-20 CHEST AND LATERAL [facility] Department of Radiology [address] [place] [id number] == Patient Name: MANDEEP PURI : 1975 Sex: F Age: Race: White Pt. Location: 20 Patient Status: D Ordered Date: 02/12/2022 1:55:00 PM Completed Date: 02/12/2022 02:03 PM Requesting Provider: HAIDER FRENCH Attending Provider: HAIDER FRENCH Report Copy To: Signs & Symptoms: Z01.818 Encounter for other preprocedural examination I10 History: Comments: Exam: CHEST AND LATERAL == CHEST AND LATERAL 02/12/2022 2:03 PM CLINICAL [...] of acute cardiopulmonary pathology. Electronically signed: Royal Chambers. Transcribed by: [email or web address], User Resident: Electronically Signed by: ROYAL BRADLEYSalome @ 02/13/2022 11:48 AM Normal [facility] CMV IGG BLOODon 02-12-2022 CMV IGG 3.13 Normal [facility] Comment on above: Result Comment: NORM AL RANGES: < OR = 0.9O NEGATIVE ; NO DETECTABLE IgG ANTIBODY TO CMV 0.91 - 1.09 EQUIVOCAL; REPEAT TESTING SUGGESTED > OR = 1.10 POSITIVE ; INDICATES PRESENCE OF DETECTABLE IgG ANTIBODY TO CMV Performed By: #### 3 1397, 91759, 46298, 09916, 75723 #### [facility] [address] [place] [address], [facility] COMP METABOLIC PANELon 02-12 Albumin [Mass/Vol] 4.5 g/dL Normal 3.5-5.7 [facility] Comment on above: Performed By: #### 2 2505, 72748, 68259 #### [facility] [address] [place] [address], [place] ALKALINE PHOSPH 89 IU/L Normal 34-104 [facility] Comment on above: Performed By: #### 2 2505, 42329, 27664 #### [facility] [address] [place] [address], [place] ALT [Catalytic activity/Vol] 12 U/L Normal 7-52 [facility] Comment on above: Performed By: #### 2 2505, 76987, 11041 #### [facility] [address] [place] [address], [place] AST [Catalytic activity/Vol] 13 U/L Normal 13-39 [facility] Comment on above: Performed By: #### 2 2505, 63943, 26934 #### [facility] [address] [place] [address], [place] Bilirubin [Mass/Vol] 0.3 mg/dL Normal 0.3-1.0 [facility] Comment on above: Performed By: #### 2 2505, 61672, 65016 #### [facility] [address] [place] [address], [place] Calcium [Mass/Vol] 9.5 mg/dL Normal 8.6-10.3 [facility] Comment on above: Performed By: #### 2 2505, 74064, 86126 #### [facility] [address] [place] [address], [place] Chloride [Moles/Vol] 103 mmol/L Normal 98-107 [facility] Comment on above: Performed By: #### 2 2505, 95844, 86180 #### [facility] [address] [place] [address], [place] CO2 [Moles/Vol] 22 mmol/L Normal 21-31 [facility] Comment on above: Performed By: #### 2 2505, 60990, 60435 #### [facility] [address] [place] [address], [place] Creatinine [Mass/Vol] 3.51 mg/dL High 0.60-1.20 [facility] Comment on above: Performed By: #### 2 2505, 02048, 69204 #### [facility] [address] [place] [address], [place] eGFR- 17 ml/min/1.73sq m Abnormal >60 [facility] Comment on above: Performed By: #### 2 2505, 12655, 05921 #### [facility] [address] [place] [address], [place] eGFR- non- 14 ml/min/1.73sq m Abnormal >60 [facility] Comment on above: Performed By: #### 2 2505, 17123, 47470 #### [facility] [address] [place] [address], [place] Glucose [Mass/Vol] 100 mg/dL Normal 70-100 [facility] Comment on above: Performed By: #### 2 2505, 12123, 13482 #### [facility] [address] [place] [address], [place] Potassium [Moles/Vol] 3.9 mmol/L Normal 3.5-5.1 [facility] Comment on above: Performed By: #### 2 2505, 02666, 04785 #### [facility] [address] [place] [address], [place] Protein [Mass/Vol] 8.0 g/dL Normal 6.0-8.3 [facility] Comment on above: Performed By: #### 2 2505, 87484, 12985 #### [facility] [address] [place] [address], [place] Sodium [Moles/Vol] 136 mmol/L Normal 136-145 [facility] Comment on above: Performed By: #### 2 2505, 01042, 57821 #### [facility] [address] [place] [address], [place] Urea nitrogen [Mass/Vol] 41 mg/dL High 7-25 [facility] Comment on above: Performed By: #### 2 2505, 63897, 54178 #### [facility] [address] [place] [address], [place] CREATININE URINE RANDOMon Creatinine (U) [Mass/Vol] 63.0 mg/dL Normal [facility] Comment on above: Result Comment: Ther e are no established reference values for random urine specimens Performed By: #### 3 1397, 64637, 19171, 69157, 83114 #### [facility] [address] [place] [address], [place] [address] RENAL RECIPIENT ABDOMEN A ND PEVLIS WO CONTRASTon 02-12-2022 CT RENAL RECIPIENT ABDOMEN AND PEVLIS WO CONTRAST [facility] Department of Radiology [address] [place] [phone] == Patient Name: MANDEEP PURI : 1975 Sex: F Age: Race: White Pt. Location: 20 Patient Status: O Ordered Date: 02/12/2022 1:55:00 PM Completed Date: 02/12/2022 02:04 PM Requesting Provider: HAIDER FRENCH Attending Provider: HAIDER FRENCH Report Copy To: Signs & Symptoms: Z01.818 Encounter for other preprocedural examination I10 History: Ong Comments: , Pre-kidney transplant work-up. Please evaluate vessels for kidney transplant , Height (ft.): 5 ft 2 in , Weight (lbs): 207 , Pre-kidney transplant work-up. Please evaluate vessels for kidney transplant , Height (ft.): 5 ft 2 in , Weight (lbs): 207 , , , Ordering Provider - HAIDER FRENCH MD , Exam: CT RENAL RECIPIENT ABDOMEN AND PEVLIS WO CONTRAST == CLINICAL INFORMATION: Renal transplant evaluation COMPARISON: None [...] achievable. Electronically signed: NAN SARAVIA. Transcribed by: [email or web address], User Resident: Electronically Signed by: NAN SARAVIA @ 02/12/2022 02:59 PM Normal [facility] Comment on above: Order Comment: , [...] Bilirubin.direct [Mass/Vol] 0.0 mg/dL Normal 0.0-0.2 [facility] Comment on above: Performed By: #### 2 2505, 62693, 84110 #### [facility] [address] BRETT LAGUERRE VIRUS ABon 05-1 EB VCA IGG 2.35 Normal [facility] Comment on above: Order Comment: CONSI STENT WITH PAST EBV INFECTION Result Comment: NORM AL RANGES: < OR = 0.9O NEGATIVE ; NO DETECTABLE IgG ANTIBODY TO EBV-VCA 0.91 - 1.09 EQUIVOCAL; REPEAT TESTING SUGGESTED > OR = 1.10 POSITIVE ; INDICATES PRESENCE OF DETECTABLE IgG ANTIBODY TO EBV Performed By: #### 3 1397, 81447, 58153, 71142, 11579 #### [facility] [address] EB VCA IGM 0.00 Normal [facility] Comment on above: Order Comment: CONSI STENT WITH PAST EBV INFECTION Result Comment: NORM AL RANGES: < OR = 0.9O NEGATIVE ; NO SIGNIFICANT LEVEL OF DETECTABLE EBV-VCA IgM AB 0.91 - 1.09 EQUIVOCAL; REPEAT TESTING SUGGESTED > OR = 1.10 POSITIVE ; SIGNIFICANT LEVEL OF DETECTABLE EBV-VCA IgM AB Performed By: #### 3 1397, 50994, 83126, 40375, 52291 #### [facility] [address] [facility] HEMOGLOBIN A1Con 02-12-2022 Glucose [Moles/Vol] 120 mmol/L Normal [facility] Comment on above: Performed By: #### 8 4863, 85167 #### [facility] [address] HbA1c (Bld) [Mass fraction] 5.8 % Normal 4.0-6.0 [facility] Comment on above: Performed By: #### 8 0033, 50564 #### [facility] [address] [place] [address], [facility] HEPATITIS A ANTIBODY IGMon 0 02-12-2022 HEP A AB IGM Non-Reactive Normal NONREACTIVE [facility] Comment on above: Performed By: #### 3 1397, 25743, 13604, 90819, 37679 #### [facility] [address] [facility] [place] [address], [facility] HEPATITIS B CORE ANTIBODYon 02-12-2022 HEP B CORE AB Non-Reactive Normal NONREACTIVE [facility] Comment on above: Performed By: #### 3 1397, 73586, 95766, 65369, 35724 #### [facility] [address] [facility] [place] [place] [address], [facility] HEPATITIS B SURFACE ANTIBODY QUANTon 02-12-2022 HEP B SURF AB 1.14 mIU/ml Normal [facility] Comment on above: Result Comment: INTE RPRETATION: NONREACTIVE<8.00 mIU/mL INDETERMINATE8.00 - 12.00 mIU/mL REACTIVE>12 mIU/mL Performed By: #### 3 1397, 70343, 99570, 28097, 54785 #### [facility] [address] [place] [address], [facility] HEPATITIS B SURFACE ANTIGEN QUALon 02-12-2022 HEP B SURF AG QUAL Non-Reactive Normal NONREACTIVE [facility] Comment on above: Performed By: #### 3 1397, 60187, 89472, 56745, 11037 #### [facility] [address] [facility] [place] [place] [address], [facility] HEPATITIS C ANTIBODYon 02-12 ANTI-HCV Non-Reactive Normal NONREACTIVE [facility] Comment on above: Performed By: #### 3 1397, 24341, 32556, 52450, 60604 #### [facility] [address] [place] [address], [facility] HIV1 AND 2 COMBO 4Gon 2021 HIV COMBO Negative Normal NEGATIVE [facility] Comment on above: Performed By: #### 3 1397, 59368, 95599, 06303, 46378 #### [facility] [address] HLA ABC CLASS I TYPINGon A*-1 EQUIVALENT 1 Normal [facility] Comment on above: Order Comment: Some [...] to frequency. Performed By: #### 3 1397, 16235, 13751, 40125, 00660 #### [facility] [address] [place] [address], [facility] A*-2 EQUIVALENT 2 Normal [facility] Comment on above: Order Comment: Some [...] to frequency. Performed By: #### 3 1397, 56154, 36504, 58061, 16549 #### [facility] [address] [place] [address], [facility] B*-1 EQUIVALENT 35 Normal [facility] Comment on above: Order Comment: Some [...] to frequency. Performed By: #### 3 1397, 08315, 29382, 63677, 44129 #### [facility] [address] [facility] [place] [place] [address], [facility] B*-2 EQUIVALENT 37 Normal [facility] Comment on above: Order Comment: Some [...] to frequency. Performed By: #### 3 1397, 99761, 94126, 70365, 49255 #### [facility] [address] [place] [address], [facility] Bw*-1 EQUIVALENT 4 Normal [facility] Comment on above: Order Comment: Some [...] to frequency. Performed By: #### 3 1397, 07615, 77977, 20544, 59972 #### [facility] [address] [place] [address], [facility] Bw*-2 EQUIVALENT 6 Normal [facility] Comment on above: Order Comment: Some [...] to frequency. Performed By: #### 3 1397, 12601, 10502, 36488, 28083 #### [facility] [address] [facility] C*-1 EQUIVALENT 4 Normal [facility] Comment on above: Order Comment: Some [...] to frequency. Performed By: #### 3 1397, 29973, 02375, 21431, 60290 #### [address] [place] [address], [facility] C*-2 EQUIVALENT 6 Normal [facility] Comment on above: Order Comment: Some [...] to frequency. Performed By: #### 3 1397, 78653, 34516, 17500, 19514 #### [address] [place] [address], [facility] METHOD Class I Typing by PCR-SSOP Luminex Normal [facility] Comment on above: Order Comment: Some [...] to frequency. Performed By: #### 3 1397, 11799, 33780, 60517, 82134 #### [facility] [address] [facility] SIGNED BY Normal [facility] Comment on above: Order Comment: [...] to frequency. Result Comment: Sree Noriega, MS,CHT(DONA),MT(ASCP) Agriculture Consultant, Transplant Immunology Performed By: #### 3 1397, 81339, 73613, 43751, 32257 #### [facility] [address] [facility] CLASS II TYPINGon DPB1*-1 EQUIVALENT 04:01 Normal [facility] Comment on above: Order Comment: [...] to frequency. Performed By: #### 3 1397, 18841, 15003, 10404, 61261 #### [facility] [address] [place] [address], [facility] DPB1*-2 EQUIVALENT 04:02 Normal [facility] Comment on above: Order Comment: [...] to frequency. Performed By: #### 3 1397, 35550, 18613, 13252, 04019 #### [facility] [address] [place] [address], [facility] DQA1*-1 EQUIVALENT 01 Normal [facility] Comment on above: Order Comment: Some [...] to frequency. Performed By: #### 3 1397, 74239, 16288, 78431, 06412 #### [facility] [address] [facility] [place] [place] [address], [place] DQA1*-2 EQUIVALENT 05 Normal [facility] Comment on above: Order Comment: Some [...] to frequency. Performed By: #### 3 1397, 26791, 70300, 60277, 74576 #### [facility] [address] [facility] [place] [place] [address], [place] DQB1*-1 EQUIVALENT 7 Normal [facility] Comment on above: Order Comment: Some [...] to frequency. Performed By: #### 3 1397, 30757, 44256, 06071, 17732 #### [facility] [address] [place] [address], [facility] DQB1*-2 EQUIVALENT 5 Normal [facility] Comment on above: Order Comment: [...] to frequency. Performed By: #### 3 1397, 75490, 69190, 21623, 65873 #### [facility] [address] [facility] [place] [address], [facility] DRB1*-1 EQUIVALENT 10 Normal [facility] Comment on above: Order Comment: [...] to frequency. Performed By: #### 3 1397, 12218, 04940, 01903, 03090 #### [facility] [address] [facility] [place] [place] [address], [facility] DRB1*-2 EQUIVALENT 11 Normal [facility] Comment on above: Order Comment: Some [...] to frequency. Performed By: #### 3 1397, 71682, 72326, 08649, 01885 #### [facility] [address] [facility] DRB3*-1 EQUIVALENT 52 Normal [facility] Comment on above: Order Comment: Some [...] to frequency. Performed By: #### 3 1397, 63765, 82343, 55423, 69560 #### [facility] [address] [facility]. [address] METHOD Class II Typing by PCR-SSOP Luminex Normal [facility] Comment on above: Order Comment: Some [...] to frequency. Performed By: #### 3 1397, 84932, 10152, 21464, 33137 #### [facility] [address] [facility] LIPID PROFILEon 02-12-2022 Cholesterol [Mass/Vol] 221 mg/dL High 120-200 Th e [facility] Comment on above: Result Comment: CHOL ESTEROL REFERENCE RANGE: 20 YEARS AND OLDER CARDIOVASCULAR RISK Less than 200 mg/dl Low Risk 200 to 239 mg/dl Borderline Risk 240 mg/dl and greater High Risk Performed By: #### 3 1397, 04056, 77474, 83405, 17754 #### [facility] [address] [place] [address], [facility] Cholesterol in HDL [Mass/Vol] 40 mg/dL Normal 23-92 [facility] Comment on above: Result Comment: Slig ht variation in normal range could be due to gender and/or age. HDL CHOLESTEROL REFERENCE RANGE: 20 years and older Cardiovascular Risk > or =60 mg/dL Desirable 40 TO 59 mg/dL Low Risk <40 mg/dL High Risk Performed By: #### 3 1397, 85955, 88010, 09958, 40554 #### [facility] [address] [place] [address], [facility] Cholesterol in LDL [Mass/Vol] 101 mg/dL Normal 0-130 [facility] Comment on above: Result Comment: LDL IS A CALCULATION LDL IS ONLY VALID IF THE TRIG IS LESS THAN 400. Performed By: #### 3 1397, 58863, 59819, 51046, 12881 #### [facility] [address] [place] [address], [facility] Cholesterol.total/Patt sterol in HDL [Mass ratio] 5.5 {ratio} High .0-4.5 [facility] Comment on above: Performed By: #### 3 1397, 87418, 15615, 67902, 53909 #### [facility] [address] [place] [address], [facility] NON-HDL CHOLESTEROL 181 mg/dL Normal [facility] Comment on above: Performed By: #### 3 1397, 64598, 53497, 06054, 35291 #### [facility] [address] [place] [address], [facility] Triglyceride [Mass/Vol] 402 mg/dL High 40-149 T he [facility] Comment on above: Result Comment: TRIG LYCERIDE REFERENCE RANGE: 20 YEARS AND OLDER CARDIOVASCULAR RISK LESS THAN 150 mg/dl LOW RISK 150 TO 199 mg/dl BORDERLINE RISK 200 mg/dl AND GREATER HIGH RISK Performed By: #### 3 1397, 77243, 29862, 59116, 28209 #### [facility] [address] [place] [address], [place] VLDL CHOL 80 mg/dL High 0-40 [facility] Comment on above: Performed By: #### 3 1397, 31491, 90280, 58899, 04047 #### [facility] [address] [place] [address], [facility] MUMPS IGG BLDon 02-12-2022 MUMPS IGG 5.46 Normal [facility] Comment on above: Result Comment: NORM AL RANGES: < OR = 0.9O NEGATIVE ; NO DETECTABLE IgG ANTIBODY TO MUMPS 0.91 - 1.09 EQUIVOCAL; REPEAT TESTING SUGGESTED > OR = 1.10 POSITIVE ; INDICATES PRESENCE OF DETECTABLE IgG ANTIBODY TO MUMPS Performed By: #### 3 1397, 00139, 47088, 27089, 60469 #### [facility] [address] RUBELLAon 02-12-2022 RUBELLA 4.79 Normal [facility] Comment on above: Result Comment: NORM AL RANGES: < OR = 0.9O NEGATIVE ; NO DETECTABLE IgG ANTIBODY TO RUBELLA 0.91 - 1.09 EQUIVOCAL; REPEAT TESTING SUGGESTED > OR = 1.10 POSITIVE ; INDICATES PRESENCE OF DETECTABLE IgG ANTIBODY TO RUBELLA VIRUS Performed By: #### 3 1397, 64302, 02511, 91233, 58822 #### [facility] [address] [place] [address], [facility] RUBEOLA MEASLES IGGon 2021 RUBEO IGG 6.43 Normal [facility] Comment on above: Result Comment: NORM AL RANGES: < OR = 0.9O NEGATIVE ; NO DETECTABLE IgG ANTIBODY TO RUBEOLA 0.91 - 1.09 EQUIVOCAL; REPEAT TESTING SUGGESTED > OR = 1.10 POSITIVE ; INDICATES PRESENCE OF DETECTABLE IgG ANTIBODY TO RUBEOLA Performed By: #### 3 1397, 53916, 20376, 06219, 97374 #### [facility] [address] [facility] [place] [place] [address], [facility] SINGLE ANTIGEN CLASS 1on METHOD Class I Single Antigen Normal Th e [facility] Comment on above: Order Comment: Some [...] to frequency. Performed By: #### 3 1397, 79964, 97534, 11198, 29380 #### [facility] [address] [facility] SINGLE ANTIGEN CLASS 2on COMMENTS Normal [facility] Comment on above: Order Comment: Some [...] watch list. Performed By: #### 3 1397, 32755, 43085, 88736, 25687 #### [facility] [address] Result Comment: Clas s I Antigen Microbeads Potential specificites added to the watch list. CPRA 0 Normal [facility] Comment on above: Order Comment: Some [...] to frequency. Performed By: #### 3 1397, 77297, 67665, 12994, 76155 #### [facility] [address] [facility] [address] METHOD Class II Single Antigen Normal T he [facility] Comment on above: Order Comment: Some [...] to frequency. Performed By: #### 3 1397, 90142, 37408, 45044, 30481 #### [facility] [address] [facility] T PROT UR Yesy 02-12-2022 U TOTAL PROTEIN 44.0 mg/dL Normal [facility] Comment on above: Result Comment: Ther e are no established reference values for random urine specimens Performed By: #### 3 1397, 88357, 93230, 55605, 24194 #### [facility] [address] [facility] [address] TB QUANTIFERON PLUSon 2021 MITOGEN MINUS NIL >10.00 Normal [facility] Comment on above: Performed By: #### 3 1592 #### [facility] [address] [facility] NIL 0.03 IU/mL Normal [facility] Comment on above: Performed By: #### 3 1592 #### [facility] [address] [facility]. [address] TB QUANTIFERON Negative Normal NEGATIVE [facility] Comment on above: Result Comment: Jadiel tiferon TB Gold Interpretation (IU/mL): NEGATIVE: M. tuberculosis infection not likely. Nil: <=8.0 TB1 Antigen minus Nil (DV4HW-GNG): <0.35 OR >=0.35; and <25% of Nil value. TB2 Antigen minus Nil (GI2IR-ANA): <0.35 OR >=0.35; and <25% of Nil [...] (https://www.cdc.gov/tb/publications/guidlines/default.htm Performed By: #### 3 1592 #### [facility] [address] [place] [address], [facility] TB1 AG 0.05 IU/mL Normal [facility] Comment on above: Performed By: #### 3 1592 #### [facility] [address] [place] [address], [facility] TB1 AG MINUS NIL 0.02 IU/mL Normal [facility] Comment on above: Performed By: #### 3 1592 #### [facility] [address] [place] [address], [facility] TB2 AG 0.05 IU/mL Normal [facility] Comment on above: Performed By: #### 3 1592 #### [facility] [address] [place] [address], [facility] TB2 AG MINUS NIL 0.02 IU/mL Normal [facility] Comment on above: Performed By: #### 3 1592 #### [facility] [address] [place] [address], [facility] UA,MICROSCOPIC REQUIREDon Appearance (U) SL CLOUDY Abnormal CLEAR [facility] Comment on above: Performed By: #### 3 1397, 20744, 82989, 28753, 19155 #### [facility] [address] [place] [address], [facility] Bilirubin Ql (U) Negative Normal NEGATIVE [facility] Comment on above: Performed By: #### 3 1397, 23985, 34901, 97251, 16283 #### [facility] [address] [place] [address], [facility] Color (U) STRAW Abnormal YELLOW [facility] Comment on above: Performed By: #### 3 1397, 16680, 69450, 49596, 57320 #### [facility] [address] [place] [address], [facility] EPIS MANY Abnormal FEW,OCC,NONE SEEN [facility] Comment on above: Performed By: #### 3 1397, 58822, 66334, 33383, 58525 #### [facility] [address] [place] [address], [facility] Glucose Ql (U) 50 mg/dL Abnormal NEGATIVE [facility] Comment on above: Performed By: #### 3 1397, 67777, 40179, 49139, 23068 #### [facility] [address] [place] [address], [facility] Hemoglobin Ql (U) Negative Normal NEGATIVE [facility] Comment on above: Performed By: #### 3 1397, 57722, 71862, 22810, 57027 #### [facility] [address] [facility] [place] [address], [facility] KETONE Negative Normal NEGATIVE [facility] Comment on above: Performed By: #### 3 1397, 65731, 06893, 19848, 01799 #### [facility] [address] [place] [address], [facility] LEUK MARYAN MODERATE Abnormal NEGATIVE [facility] Comment on above: Performed By: #### 3 1397, 09926, 93547, 75172, 26643 #### [facility] [address] [place] [address], [place] Nitrite Ql (U) Negative Normal NEGATIVE [facility] Comment on above: Performed By: #### 3 1397, 53508, 38333, 35935, 02935 #### [facility] [address] pH (U) 7.0 [pH] Normal 5.0-8.0 [facility] Comment on above: Performed By: #### 3 1397, 67085, 12000, 73050, 85150 #### [facility] [address] [facility] [address] Protein Ql (U) 30 mg/dL Abnormal NEGATIVE [facility] Comment on above: Performed By: #### 3 1397, 29908, 72823, 51462, 91534 #### [facility] [address] [facility]. [address] RBC NONE SEEN Normal NONE SEEN [facility] Comment on above: Performed By: #### 3 1397, 32009, 37426, 78704, 35251 #### [facility] [address] [facility]. [address] SPEC GRAV 1.009 Low 1.015-1.020 [facility] Comment on above: Performed By: #### 3 1397, 37013, 52388, 41123, 42522 #### [facility] [address] [facility]. [address] WBC UA 11-20 Abnormal NONE SEEN [facility] Comment on above: Performed By: #### 3 1397, 20658, 01323, 43352, 16318 #### [facility] [address] [facility]. [address] VARICELLA ZOSTER IGGon 02-12 VARICELLA IGG 3.29 Normal [facility] Comment on above: Result Comment: NORM AL RANGES: < OR = 0.9O NEGATIVE ; NO DETECTABLE IgG ANTIBODY TO VARICELLA-ZOSTER VIRUS 0.91 - 1.09 EQUIVOCAL; REPEAT TESTING SUGGESTED > OR = 1.10 POSITIVE ; INDICATES PRESENCE OF DETECTABLE IgG ANTIBODY TO VARICELLA-ZOSTER VIRUS Performed By: #### 3 1397, 13760, 71375, 31539, 96983 #### [facility] [address] [facility] [address] PTH INTACTon 12-04-2021 PTH, Intact 165 pg/mL Critically high 15-65 [facility] Comment on above: Performed By: #### M G, URIC, RENAL #### [facility] [address] [place] [address] Dr. Hari Palmer FERRITINon 12-03-2021 Ferritin [Mass/Vol] 256.0 ng/mL Critically high 6.2-137.0 [facility] Comment on above: Performed By: #### M G, URIC, RENAL #### [facility] [address] [place] [address] Dr. Hari Palmer HEMOGRAM AND PLATELon 2021 Hematocrit (Bld) [Volume fraction] 33.7 % Critically low 36.0-48.0 [facility] Comment on above: Performed By: #### M G, URIC, RENAL #### [facility] [address] [place] [address] Dr. Hari Palmer Hemoglobin (Bld) [Mass/Vol] 10.9 g/dL Critically low 12.0-16.0 [facility] Comment on above: Performed By: #### M G, URIC, RENAL #### [facility] [address] [place] [address] Dr. Hari Palmer MCH (RBC) [Entitic mass] 31.4 pg Normal 26.7-34.0 [facility] Comment on above: Performed By: #### M G, URIC, RENAL #### [facility] [address] [place] [address] Dr. Hari Palmer MCHC (RBC) [Mass/Vol] 32.3 g/dL Normal 29.9-35.2 [facility] Comment on above: Performed By: #### M G, URIC, RENAL #### [facility] [address] [place] [address] Dr. Hari Palmer MCV (RBC) [Entitic vol] 97.1 fL Normal 81.0-99.0 [facility] Comment on above: Performed By: #### M G, URIC, RENAL #### [facility] [address] [place] [address] Dr. Hari Palmer PLT 314 103/ul Normal 150-450 [facility] Comment on above: Performed By: #### M Edy, URIC, RENAL #### [facility] [address] [place] [address] Dr. Hari Palmer RBC 3.47 106/ul Critically low 4.20-5.40 [facility] Comment on above: Performed By: #### M Edy, URIC, RENAL #### [facility] [address] [place] [address] Dr. Hari Palmer WBC 9.4 103/ul Normal 4.0-11.0 [facility] Comment on above: Performed By: #### M Edy, URIC, RENAL #### [facility] [address] [place] [address] Dr. Hari Palmer IRON AND TIBCon 12-03-2021 % SATURATION 19.0 % Normal [facility] Comment on above: Performed By: #### M Edy URIC, RENAL #### [facility] [address] [place] [address] Dr. Hari Palmer Iron [Mass/Vol] 52.0 ug/dL Normal 37.0-170.0 [facility] Comment on above: Performed By: #### M Edy URIC, RENAL #### [facility] [address] [place] [address] Dr. Hari Palmer TIBC DIRECT 273.0 ug/dL Normal 261.0-497.0 [facility] Comment on above: Performed By: #### M Edy, URIC, RENAL #### [facility] [address] [place] [address] Dr. Hari Palmer MAGNESIUMon 12-03-2021 Magnesium [Mass/Vol] 2.1 mg/dL Normal 1.6-2.3 [facility] Comment on above: Performed By: #### M Edy, URIC, RENAL #### [facility] [address] [place] [address] Dr. Hari Palmer RENAL FUNCTION PANELon 12-03 Albumin [Mass/Vol] 3.6 g/dL Normal 3.5-5.0 [facility] Comment on above: Performed By: #### M G, URIC, RENAL #### [facility] [address] [place] [address] Dr. Hari Palmer Calcium [Mass/Vol] 8.4 mg/dL Normal 8.4-10.2 [facility] Comment on above: Performed By: #### M G, URIC, RENAL #### [facility] [address] [place] [address] Dr. Hari Palmer Chloride [Moles/Vol] 101 mmol/L Normal 98-107 [facility] Comment on above: Performed By: #### M G, URIC, RENAL #### [facility] [address] [place] [address] Dr. Hari Palmer CO2 [Moles/Vol] 24.3 mmol/L Normal 22.0-30.0 [facility] Comment on above: Performed By: #### M G, URIC, RENAL #### [facility] [address] [place] [address] Dr. Hari Palmer Creatinine [Mass/Vol] 3.32 mg/dL Critically high 0.52-1.04 [facility] Comment on above: Performed By: #### M G, URIC, RENAL #### [facility] [address] [place] [address] Dr. Hari Palmer EGFR-AF MACANESE 18 mL/min/1.73m2 Critically low >=60 [facility] Comment on above: Performed By: #### M G, URIC, RENAL #### [facility] [address] [place] [address] Dr. Hari Palmer EGFR-NON AF MACANESE 15 mL/min/1.73m2 Critically low >=60 [facility] Comment on above: Performed By: #### M G, URIC, RENAL #### [facility] [address] [place] [address] Dr. Hari Palmer Glucose [Mass/Vol] 119 mg/dL Critically high 74-106 [facility] Comment on above: Performed By: #### M G, URIC, RENAL #### [facility] [address] [place] [address] Dr. Hari Palmer Phosphate [Mass/Vol] 4.7 mg/dL Critically high 2.5-4.5 [facility] Comment on above: Performed By: #### M G, URIC, RENAL #### [facility] [address] [place] [address] Dr. Hari Palmer Potassium [Moles/Vol] 4.0 mmol/L Normal 3.4-5.0 [facility] Comment on above: Performed By: #### M G, URIC, RENAL #### [facility] [address] [place] [address] Dr. Hari Palmer Sodium [Moles/Vol] 135 mmol/L Critically low 137-145 [facility] Comment on above: Performed By: #### M Edy, URIC, RENAL #### [facility] [address] [place] [address] Dr. Hari Palmer Urea nitrogen [Mass/Vol] 42.0 mg/dL Critically high 7.0-17.0 [facility] Comment on above: Performed By: #### M Edy, URIC, RENAL #### [facility] [address] [place] [address] Dr. Hari Palmer UA RANDOM W/MICROSCOPICon BACTERIA TRACE Abnormal NONE SEEN [facility] Comment on above: Performed By: #### U AMIC #### [facility] [address] [place] [address] Dr. Hari Palmer Bilirubin Ql (U) Negative Normal NEGATIVE [facility] Comment on above: Performed By: #### U AMIC #### [facility] [address] [place] [address] Dr. Hari Palmer CAST NONE SEEN Normal NONE SEEN [facility] Comment on above: Performed By: #### U AMIC #### [facility] [address] [place] [address] Dr. Hari Palmer Clarity (U) CLEAR Normal CLEAR [facility] Comment on above: Performed By: #### U AMIC #### [facility] [address] [place] [address] Dr. Hari Palmer Color (U) LT. YELLOW Normal YELLOW [facility] Comment on above: Performed By: #### U AMIC #### [facility] [address] [address] [address] Hari Palmer Crystals LM Nom (Urine sed) NONE SEEN Normal NONE SEEN [facility] Comment on above: Performed By: #### U AMIC #### [facility] [address] [place] [address] Dr. Hari Palmer Epithelial cells LM Ql (Urine sed) FEW Abnormal NONE SEEN /RARE [facility] Comment on above: Performed By: #### U AMIC #### [facility] [address] [place] [address] Dr. Hari Palmer Glucose Ql (U) 100 mg/dl Abnormal NEGATIVE [facility] Comment on above: Performed By: #### U AMIC #### [facility] [address] [place] [address] Dr. Hari Palmer Hemoglobin Ql (U) TRACE-INTACT Abnormal NEGATIVE [facility] Comment on above: Performed By: #### U AMIC #### [facility] [address] [place] [address] Dr. Hari Palmer Ketones Ql (U) Negative Normal NEGATIVE [facility] Comment on above: Performed By: #### U AMIC #### [facility] [address] [place] [address] Dr. Hari Palmer LEUKOCYTES SMALL Abnormal NEGATIVE [facility] Comment on above: Performed By: #### U AMIC #### [facility] [address] [place] [address] Dr. Hari Palmer MUCOUS NONE SEEN Normal NONE SEEN [facility] Comment on above: Performed By: #### U AMIC #### [facility] [address] [place] [address] Dr. Hari Palmer Nitrite Ql (U) Negative Normal NEGATIVE [facility] Comment on above: Performed By: #### U AMIC #### [facility] [address] [place] [address] Dr. Hari Palmer pH (U) 6.0 [pH] Normal 5-9 [facility] Comment on above: Performed By: #### U AMIC #### [facility] [address] [place] [address] Dr. Hari Palmer RBC 0-2 Normal 0-2 [facility] Comment on above: Performed By: #### U AMIC #### [facility] [address] [place] [address] Dr. Hari Palmer SPEC GRAVITY 1.010 Normal 1.005-<=1.02 5 [facility] Comment on above: Performed By: #### U AMIC #### [facility] [address] [place] [address] Dr. Hari Palmer UA PROTEIN Negative Normal NEGATIVE/ TRACE [facility] Comment on above: Performed By: #### U AMIC #### [facility] [address] [place] [address] Dr. Hari Palmer Urobilinogen Qn (U) 0.2 {Janice'U}/dL Normal 0.2 - 1. 0 [facility] Comment on above: Performed By: #### U AMIC #### [facility] [address] [place] [address] Dr. Hari Palmer WBC 5-10 Abnormal NONE SEEN [facility] Comment on above: Performed By: #### U AMIC #### [facility] [address] [place] [address] Dr. Hari Palmer URIC ACID SERUMon 12-03-2021 Urate [Mass/Vol] 4.6 mg/dL Normal 2.5-6.2 [facility] Comment on above: Performed By: #### M G, URIC, RENAL #### [facility] [address] [place] [address] Dr. Hari Palmer URINE T PROTEIN CREAT RATIOo n 12-03-2021 Protein (U) [Mass/Vol] 31.7 mg/dL Critically high <=12.0 [facility] Comment on above: Performed By: #### M G, URIC, RENAL #### [facility] [address] [place] [address] Dr. Hari Palmer UR PROT CREAT RAT 0.54 Normal [facility] Comment on above: Performed By: #### M G, URIC, RENAL #### [facility] [address] [place] [address] Dr. Hari Palmer URINE CREAT 59.03 mg/dL Normal 20.00-300.00 [facility] Comment on above: Performed By: #### M G, URIC, RENAL #### [facility] [address] [place] [address] Dr. Hari Palmer VITAMIN D 25 OHon 12-03-2021 VIT D 25-OH 38.1 ng/mL Normal [facility] Comment on above: Performed By: #### M G, URIC, RENAL #### [facility] [address] [place] [address] Dr. Hari Palmer VIT D RANGES SEE BELOW Normal [facility] Comment on above: Result Comment: <20 ng/mL Vit D deficient 20 - <30 ng/mL Vit D insufficient 30 - 100 ng/mL Vit D sufficient >100 ng/mL Potential Toxicity Performed By: #### M G, URIC, RENAL #### [facility] [address] [place] [address] Dr. Hari Palmer PTH INTACTon 09-03-2021 PTH, Intact 177 pg/mL Critically high 15-65 [facility] Comment on above: Performed By: #### P THINT #### [facility] [address] [place] [address] Dr. Hari Palmer CBC AUTO DIFFon 09-01-2021 BASO # 0.1 103/ul Normal 0.0-0.1 [facility] Comment on above: Performed By: #### M G, URIC, RENAL #### [facility] [address] [place] [address] Dr. Hari Palmer Basophils/100 WBC (Bld) 0.6 % Normal 0.2-2.0 [facility] Comment on above: Performed By: #### M G, URIC, RENAL #### [facility] [address] [place] [address] Dr. Hari Palmer EO # 0.3 103/ul Normal 0.0-0.7 [facility] Comment on above: Performed By: #### M G, URIC, RENAL #### [facility] [address] [place], [place] [id number] Dr. Hari Palmer Eosinophils/100 WBC (Bld) 3.5 % Normal 0.9-7.0 [facility] Comment on above: Performed By: #### M G, URIC, RENAL #### [facility] [address] [place] [address] Dr. Hari Palmer Erythrocyte distribution width (RBC) [Ratio] 13.8 % Normal 11.0-15.0 [facility] Comment on above: Performed By: #### M Edy, URIC, RENAL #### [facility] [address] [place] [address] Dr. Hari Palmer Hematocrit (Bld) [Volume fraction] 32.8 % Critically low 36.0-48.0 [facility] Comment on above: Performed By: #### M G URIC, RENAL #### [facility] [address] [place] [address] Dr. Hari Palmer Hemoglobin (Bld) [Mass/Vol] 10.6 g/dL Critically low 12.0-16.0 [facility] Comment on above: Performed By: #### M G, URIC, RENAL #### [facility] [address] [place] [address] Dr. Hari Palmer IG # 0.14 10e3/ul Critically high 0.00-0.03 [facility] Comment on above: Performed By: #### M G, URIC, RENAL #### [facility] [address] [place] [address] Dr. Hari Palmer IG % 1.5 % Critically high 0.0-0.5 [facility] Comment on above: Performed By: #### M G, URIC, RENAL #### [facility] [address] [place] [address] Dr. Hari Palmer LYMPH # 1.8 103/ul Normal 1.2-3.8 [facility] Comment on above: Performed By: #### M G, URIC, RENAL #### [facility] [address] [place] [address] Dr. Hari Palmer Lymphocytes/100 WBC (Bld) 19.3 % Critically low 20.5-60.0 [facility] Comment on above: Performed By: #### M G, URIC, RENAL #### [facility] [address] [place] [address] Dr. Hari Palmer MANUAL DIFF REQ NO Normal [facility] Comment on above: Performed By: #### M G, URIC, RENAL #### [facility] [address] [place] [address] Dr. Hari Palmer MCH (RBC) [Entitic mass] 31.4 pg Normal 26.7-34.0 [facility] Comment on above: Performed By: #### M G, URIC, RENAL #### [facility] [address] [place] [address] Dr. Hari Palmer MCHC (RBC) [Mass/Vol] 32.3 g/dL Normal 29.9-35.2 [facility] Comment on above: Performed By: #### M G, URIC, RENAL #### [facility] [address] [place] [address] Dr. Hari Palmer MCV (RBC) [Entitic vol] 97.0 fL Normal 81.0-99.0 [facility] Comment on above: Performed By: #### M G, URIC, RENAL #### [facility] [address] [place] [address] Dr. Hari Palmer MONO # 0.4 103/ul Normal 0.3-0.8 [facility] Comment on above: Performed By: #### M G, URIC, RENAL #### [facility] [address] [place] [address] Dr. Hari Palmer Monocytes/100 WBC (Bld) 4.2 % Normal 1.7-12.0 [facility] Comment on above: Performed By: #### M G, URIC, RENAL #### [facility] [address] [place] [address] Dr. Hari Palmer NEUT # 6.5 103/ul Normal 1.4-6.5 [facility] Comment on above: Performed By: #### M G, URIC, RENAL #### [facility] [address] [place] [address] Dr. Hari Palmer Neutrophils/100 WBC (Bld) 70.9 % Normal 43.0-75.0 [facility] Comment on above: Performed By: #### M Edy URIC, RENAL #### [facility] [address] [place] [address] Dr. Hari Palmer Platelet mean volume (Bld) [Entitic vol] 9.0 fL Critically low 9.5-13.5 [facility] Comment on above: Performed By: #### Xiomara Snow URIC, RENAL #### [facility] [address] [place] [address] Dr. Hari Palmer PLT 289 103/ul Normal 150-450 [facility] Comment on above: Performed By: #### JUDIE Traore, RENAL #### [facility] [address] [place] [address] Dr. Hari Palmer RBC 3.38 106/ul Critically low 4.20-5.40 [facility] Comment on above: Performed By: #### Xiomara Snow URIC, RENAL #### [facility] [address] [place] [address] Dr. Hari Palmer WBC 9.1 103/ul Normal 4.0-11.0 [facility] Comment on above: Performed By: #### Xiomara Snow URIC, RENAL #### [facility] [address] [place] [address] Dr. Hari Palmer FERRITINon 09-01-2021 Ferritin [Mass/Vol] 204.0 ng/mL Critically high 6.2-137.0 [facility] Comment on above: Performed By: #### Xiomara Snow URIC, RENAL #### [facility] [address] [place] [address] Dr. Hari Palmer IRON AND TIBCon 09-01-2021 % SATURATION 28.4 % Normal [facility] Comment on above: Performed By: #### M Edy URIC, RENAL #### [facility] [address] [place] [address] Dr. Hari Palmer Iron [Mass/Vol] 80.0 ug/dL Normal 37.0-170.0 [facility] Comment on above: Performed By: #### M Edy URIC, RENAL #### [facility] [address] [address] [address] Hari Palmre TIBC DIRECT 282.0 ug/dL Normal 261.0-497.0 [facility] Comment on above: Performed By: #### M G, URIC, RENAL #### [facility] [address] [place] [address] Dr. Hari Palmer MAGNESIUMon 09-01-2021 Magnesium [Mass/Vol] 2.2 mg/dL Normal 1.6-2.3 [facility] Comment on above: Performed By: #### U AMIC #### [facility] [address] [place] [address] Dr. Hari Palmer RENAL FUNCTION PANELon 09-01 Albumin [Mass/Vol] 3.5 g/dL Normal 3.5-5.0 [facility] Comment on above: Performed By: #### M G, URIC, RENAL #### [facility] [address] [place] [address] Dr. Hari Palmer Calcium [Mass/Vol] 8.7 mg/dL Normal 8.4-10.2 [facility] Comment on above: Performed By: #### M G, URIC, RENAL #### [facility] [address] [place] [address] Dr. Hari Palmer Chloride [Moles/Vol] 105 mmol/L Normal 98-107 [facility] Comment on above: Performed By: #### M G, URIC, RENAL #### [facility] [address] [place] [address] Dr. Hari Palmer CO2 [Moles/Vol] 21.1 mmol/L Critically low 22.0-30.0 [facility] Comment on above: Performed By: #### M G, URIC, RENAL #### [facility] [address] [place] [address] Dr. Hari Palmer Creatinine [Mass/Vol] 3.63 mg/dL Critically high 0.52-1.04 [facility] Comment on above: Performed By: #### M G, URIC, RENAL #### [facility] [address] [place] [address] Dr. Hari Palmer EGFR-AF MACANESE 16 mL/min/1.73m2 Critically low >=60 [facility] Comment on above: Performed By: #### M G, URIC, RENAL #### [facility] [address] [address] [address] Hari Palmer EGFR-NON AF MACANESE 14 mL/min/1.73m2 Critically low >=60 [facility] Comment on above: Performed By: #### M G, URIC, RENAL #### [facility] [address] [address] [address] Hari Palmer Glucose [Mass/Vol] 115 mg/dL Critically high 74-106 [facility] [facility] Comment on above: Performed By: #### M Edy, URIC, RENAL #### [facility] [address] [place] [address] Dr. Hari Palmer Phosphate [Mass/Vol] 4.6 mg/dL Critically high 2.5-4.5 [facility] Comment on above: Performed By: #### M G, URIC, RENAL #### [facility] [address] [address] [address] Hari Palmer Potassium [Moles/Vol] 4.2 mmol/L Normal 3.4-5.0 [facility] Comment on above: Performed By: #### M G, URIC, RENAL #### [facility] [address] [address] [address] Hari Palmer Sodium [Moles/Vol] 138 mmol/L Normal 137-145 [facility] Comment on above: Performed By: #### M G, URIC, RENAL #### [facility] [address] [address] [address] Hari Palmer Urea nitrogen [Mass/Vol] 50.0 mg/dL Critically high 7.0-17.0 [facility] Comment on above: Performed By: #### M G, URIC, RENAL #### [facility] [address] [address] [address] Hari Palmer UA RANDOM W/MICROSCOPICon BACTERIA SMALL Abnormal NONE SEEN [facility] Comment on above: Performed By: #### U AMIC #### [facility] [address] [address] [address] Hari Palmer Bilirubin Ql (U) Negative Normal NEGATIVE [facility] Comment on above: Performed By: #### U AMIC #### [facility] [address] [address] [address] Hari Palmer CAST NONE SEEN Normal NONE SEEN [facility] Comment on above: Performed By: #### U AMIC #### [facility] [address] [address] [address] Hari Palmer Clarity (U) CLEAR Normal CLEAR [facility] Comment on above: Performed By: #### U AMIC #### [facility] [address] [place] [address] Dr. Hari Palmer Color (U) LT. YELLOW Normal YELLOW [facility] Comment on above: Performed By: #### U AMIC #### [facility] [address] [place] [address] Dr. Hari Palmer Crystals LM Nom (Urine sed) NONE SEEN Normal NONE SEEN [facility] Comment on above: Performed By: #### U AMIC #### [facility] [address] [address] [address] Hari Palmer Epithelial cells LM Ql (Urine sed) MODERATE Abnormal NONE SEEN /RARE [facility] Comment on above: Performed By: #### U AMIC #### [facility] [address] [place] [address] Dr. Hari Palmer Glucose Ql (U) Negative Normal NEGATIVE [facility] Comment on above: Performed By: #### U AMIC #### [facility] [address] [place] [address] Dr. Hari Palmer Hemoglobin Ql (U) TRACE-INTACT Abnormal NEGATIVE [facility] Comment on above: Performed By: #### U AMIC #### [facility] [address] [place] [address] Dr. Hari Palmer Ketones Ql (U) Negative Normal NEGATIVE [facility] Comment on above: Performed By: #### U AMIC #### [facility] [address] [place] [address] Dr. Hari Palmer LEUKOCYTES Negative Normal NEGATIVE [facility] Comment on above: Performed By: #### U AMIC #### [facility] [address] [place] [address] Dr. Hari Palmer MUCOUS NONE SEEN Normal NONE SEEN [facility] Comment on above: Performed By: #### U AMIC #### [facility] [address] [place] [address] Dr. Hari Palmer Nitrite Ql (U) Negative Normal NEGATIVE [facility] Comment on above: Performed By: #### U AMIC #### [facility] [address] [place] [address] Dr. Hari Palmer pH (U) 6.0 [pH] Normal 5-9 [facility] Comment on above: Performed By: #### U AMIC #### [facility] [address] [place] [address] Dr. Hari Palmer RBC 2-5 Abnormal 0-2 [facility] Comment on above: Performed By: #### U AMIC #### [facility] [address] [place] [address] Dr. Hari Palmer SPEC GRAVITY 1.010 Normal 1.005-<=1.02 5 [facility] Comment on above: Performed By: #### U AMIC #### [facility] [address] [place] [address] Dr. Hari Palmer UA PROTEIN Negative Normal NEGATIVE/ TRACE [facility] Comment on above: Performed By: #### U AMIC #### [facility] [address] [place] [address] Dr. Hari Palmer Urobilinogen Qn (U) 0.2 {Janice'U}/dL Normal 0.2 - 1. 0 [facility] Comment on above: Performed By: #### U AMIC #### [facility] [address] [place] [address] Dr. Hari Palmer WBC 2-5 Abnormal NONE SEEN [facility] Comment on above: Performed By: #### U AMIC #### [facility] [address] [place] [address] Dr. Hari Palmer URIC ACID SERUMon 09-01-2021 Urate [Mass/Vol] 4.9 mg/dL Normal 2.5-6.2 [facility] Comment on above: Performed By: #### U AMIC #### [facility] [address] [place] [address] Dr. Hari Palmer URINE T PROTEIN CREAT RATIOo n 09-01-2021 Protein (U) [Mass/Vol] 22.2 mg/dL Critically high <=12.0 [facility] Comment on above: Performed By: #### M G, URIC, RENAL #### [facility] [address] [place] [address] Dr. Hari Palmer UR PROT CREAT RAT 0.47 Normal [facility] Comment on above: Performed By: #### M G, URIC, RENAL #### [facility] [address] [place] [address] Dr. Hari Palmer URINE CREAT 46.89 mg/dL Normal 20.00-300.00 [facility] Comment on above: Performed By: #### M G, URIC, RENAL #### [facility] [address] [place] [address] Dr. Hari Palmer VITAMIN D 25 OHon 09-01-2021 VIT D 25-OH 40.5 ng/mL Normal [facility] Comment on above: Performed By: #### M G, URIC, RENAL #### [facility] [address] [place] [address] Dr. Hari Palmer VIT D RANGES SEE BELOW Normal [facility] Comment on above: Result Comment: <20 ng/mL Vit D deficient 20 - <30 ng/mL Vit D insufficient 30 - 100 ng/mL Vit D sufficient >100 ng/mL Potential Toxicity Performed By: #### M G, URIC, RENAL #### [facility] [address] [place] [address] Dr. Hari Palmer CNOVon 03-30-2021 CNOV Office Visit (NEPHMN ) -------- MANDEEP PURI ([id number]) 1975 F Date Time Provider Department 03/30/21 9:20 AM PERRI BARRETT NEPHMN During your visit today, we recorded the following information about you: Temperature Pulse Blood pressure Weight 98.2 degrees 75/minute 122/77 93 kg Height 1.549 m Perri Barrett MD 03/30/2021 10:25 AM Signed Mrs. 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 (more content not included)... Normal [facility] Urinalysison 03-30-2021 Bilirubin, Urine Negative Normal [facility] Comment on above: Performed By: #### U A #### [facility] [employer] [address] [place], [place] [address] Clarity (U) Clear Normal Clear [facility] Comment on above: Performed By: #### U A #### [facility] [employer] [address] [place], [place] [address] Color (U) Colorless Critically abnormal Yellow [facility] Comment on above: Performed By: #### U A #### [facility] [place] [address] [place], [place] [address] Comments SEE COMMENT Normal [facility] Comment on above: Result Comment: Micr oscopic not warranted Performed By: #### U A #### [facility] [place] [address] [place], [place] [address] Glucose Ql (U) Trace Critically abnormal Negative [facility] Comment on above: Performed By: #### U A #### [facility] [place] [address] [address] Hemoglobin/Blood,Ur Negative Normal Negative [facility] Comment on above: Performed By: #### U A #### [address] [address] Ketones Ql (U) Negative Normal Negative [facility] Comment on above: Performed By: #### U A #### [address] [address] Leukest Negative Normal Negative [facility] Comment on above: Performed By: #### U A #### [facility] [place] [address] [address] Nitrite Ql (U) Negative Normal Negative [facility] Comment on above: Performed By: #### U A #### [address] [id number] pH (U) 6.5 [pH] Normal 5.0-8.0 [facility] Comment on above: Performed By: #### U A #### [facility] [place] [address] [address] Protein, Urine Negative Normal Negative [facility] Comment on above: Performed By: #### U A #### [address] [place], [place] [address] Specific [place], Ur 1.008 Normal 1.005-1.030 [facility] Comment on above: Performed By: #### U A #### [facility] [employer] [address] [place], [place] [address] Urine Codi Comment SEE COMMENT Normal [facility] Comment on above: Result Comment: N/A Performed By: #### U A #### [facility] [employer] [address] [place], [place] [address] Urobilinogen (U) [Mass/Vol] Negative Normal Negative [facility] Comment on above: Performed By: #### U A #### [facility] [place] [address] [place], [place] [address] Coding Summary.on 04-21-2020 Coding Summary. CODING DATE: 020 [facility] STATUS: Home (Routine DC) PAYOR: Medical [place] ADMIT DX: REASON FOR VISIT DX: Z20.828 [...] CphT Date Saved: 04/21/2020 05:17 pm Normal [facility] Physician Orderon 04-21-2020 Physician Order [id number]: 127 Normal [facility] Marci 04-12-2020 ALT [Catalytic activity/Vol] 14 U/L Normal 7 - 45 [facility] Comment on above: Result Comment: Kelsea ents treated with Sulfasalazine may generate falsely decreased results for ALT. Performed By: #### A LT #### [facility] [address] [facility] [place] [place] [address] Ronald 04-12-2020 AST [Catalytic activity/Vol] 16 U/L Normal 9 - 39 [facility] Comment on above: Performed By: #### A ST #### [facility] [address] [place] [address] CREATININEon 04-12-2020 Creatinine [Mass/Vol] 2.83 mg/dL High 0.50 - 1.05 [facility] Comment on above: Performed By: #### C REAT #### [facility] [address] [place] [address] Creatinine [Mass/Vol] 18 mL/min/1.73m2 Abnormal >60 [facility] Comment on above: Performed By: #### C REAT #### [facility] [address] [place] [address] Creatinine [Mass/Vol] 22 mL/min/1.73m2 Abnormal >60 [facility] Comment on above: Result Comment: CALC ULATIONS OF ESTIMATED GFR ARE PERFORMED USING THE MDRD STUDY EQUATION FOR THE IDMS-TRACEABLE CREATININE METHODS. CLIN CHEM 2007;53:766-72 Performed By: #### C REAT #### [facility] [address] [place] [address] URIC ACIDon 04-12-2020 Urate [Mass/Vol] 5.2 mg/dL Normal 2.3 - 6.7 [facility] Comment on above: Result Comment: Beti puncture immediately after or during the administration of Metamizole may lead to falsely low results. Testing should be performed immediately prior to Metamizole dosing. Performed By: #### U DICK #### [facility] [address] [place] [address] URIC ACIDon 02-11-2020 Urate [Mass/Vol] 8.2 mg/dL High 2.3 - 6.7 [facility] Comment on above: Result Comment: Beti puncture immediately after or during the administration of Metamizole may lead to falsely low results. Testing should be performed immediately prior to Metamizole dosing. Performed By: #### U DICK #### [facility] [address] [place] [address] Cult,Urineon 08-04-2019 Cult,Urine Specimen Description .CLEAN CATCH URINE Special Requests NOT REPORTED Culture ESCHERICHIA COLI >[id number] CFU/ML Report Status FINAL 08/04/2019 SUSCEPTIBILITY Organism [...] Trimethoprim/Sulfa <=20 SUSCEPTIBLE Piperacillin/Tazobactam <=4 SUSCEPTIBLE Normal [facility] Comment on above: Performed By: #### D CITLALY, LIP, CMPX, TROPI, BNP, CDP, PT #### [facility] [address] [place] [address] Drill Runner: Sami Dominguez MD Brain Natri. Peptideon 08-02 Natriuretic peptide B (Bld) [Mass/Vol] 152 pg/mL Normal <300 [facility] Comment on above: Result Comment: Pro- BNP results cannot be compared to BNP results. Performed By: #### D CITLALY, LIP, CMPX, TROPI, BNP, CDP, PT #### [facility] [address] [place], [place] [id number] Drill Runner: Sami Dominguez MD Natriuretic peptide B (Bld) [Mass/Vol] Pro-BNP Reference Range: Normal [facility] Comment on above: Result Comment: Rule Out: <300 Parra Zone: Age <50 300-450 Age 50-75 300-900 Age >75 300-1800 Usually represents mild to moderate HF but other cardiopulmonary causes cannot be ruled out. Rule In: Age <50 >450 Age 50-75 >900 Age >75 >1800 Performed By: #### D CITLALY, LIP, CMPX, TROPI, BNP, CDP, PT #### [facility] [address] [place] [address] Drill Runner: Sami Dominguez MD Brain Natriuretic Peptideon 08-02-2019 Natriuretic peptide B (Bld) [Mass/Vol] 152 pg/mL <300 [place] Comment on above: Pro-BNP results eric ot be compared to BNP results. Natriuretic peptide B (Bld) [Mass/Vol] Pro-BNP Reference Range: [place], [place] Comment on above: Rule Out: <300 Parra Zone: Age <50 300-450 Age 50-75 300-900 Age >75 300-1800 Usually represents mild to moderate HF but other cardiopulmonary causes cannot be ruled out. Rule In: Age <50 >450 Age 50-75 >900 Age >75 >1800 CBC Auto Differentialon 07-07 Basophils (Bld) [#/Vol] 0.00 10*3/uL [place] Basophils/100 WBC (Bld) 0 % 0 - 2 % M [place] Differential Type NOT REPORTED [place] Eosinophils (Bld) [#/Vol] 0.08 10*3/uL [place] Eosinophils/100 WBC (Bld) 1 % 1 - 4 % [place] Erythrocyte distribution width (RBC) [Ratio] 13.2 % 11.8 - 14.4 % [place] Hematocrit (Bld) [Volume fraction] 33.7 % Low 36.3 - 47.1 % [place] Hemoglobin (Bld) [Mass/Vol] 10.7 g/dL Low 11.9 - 15.1 g/dL [place] Immature granulocytes (Bld) [#/Vol] 0 % 0 [place] Immature granulocytes (Bld) [#/Vol] 0.00 10*3/uL [place] Interpretation and review of laboratory results Abnormal [place] Lymphocytes (Bld) [#/Vol] 0.90 10*3/uL Low [place] Lymphocytes/100 WBC (Bld) 12 % Low 24 - 43 % [place] MCH (RBC) [Entitic mass] 30.2 pg 25.2 - 33.5 pg [place] MCHC (RBC) [Mass/Vol] 31.8 g/dL 28.4 - 34.8 g/dL [place] MCV (RBC) [Entitic vol] 95.2 fL 82.6 - 102.9 fL [place] Monocytes (Bld) [#/Vol] 0.00 10*3/uL Low [place] Monocytes/100 WBC (Bld) 0 % Low 3 - 12 % [place] Morphology Geovany (Bld) [Interp] Normal [place] Platelet mean volume (Bld) [Entitic vol] 8.6 fL 8.1 - 13.5 fL [place] Platelets (Bld) [#/Vol] NOT REPORTED [place] Platelets (Bld) [#/Vol] 335 10*3/uL [place] RBC (Bld) [#/Vol] 3.54 10*6/uL Low 3.95 - 5.1 1 m/uL [place] RBC morphology finding Nom (Bld) NOT REPORTED [place] Segmented neutrophils/100 WBC (Bld) 87 % High 36 - 65 % [place] Segs Absolute 6.52 [place] WBC (Bld) [#/Vol] 7.5 10*3/uL [place] WBC (Bld) [#/Vol] 0.0 10*3/uL 0.0 per 10 0 WBC [place] WBC Morphology NOT REPORTED [place] CBC with Diffon 08-02-2019 Abs. Basophil 0.00 k/uL Normal 0.0-0.2 [facility] Comment on above: Performed By: #### D CITLALY, LIP, CMPX, TROPI, BNP, CDP, PT #### [facility] [address] [place] [address] Drill Runner: Sami Dominguez MD Abs.Imm.Granulocyte 0.00 k/uL Normal 0.00-0.30 [facility] Comment on above: Performed By: #### D CITLALY, LIP, CMPX, TROPI, BNP, CDP, PT #### [facility] [address] [place] [address] Drill Runner: Sami Dominguez MD Abs.Neutrophil (Seg) 6.52 k/uL Normal 1.50-8.10 [facility] Comment on above: Performed By: #### D CITLALY, LIP, CMPX, TROPI, BNP, CDP, PT #### [facility] [address] [place] [address] Drill Runner: Sami Dominguez MD Basophils/100 WBC (Bld) 0 % Normal 0-2 [facility] Comment on above: Performed By: #### D CITLALY, LIP, CMPX, TROPI, BNP, CDP, PT #### [facility] [address] [place], [facility] Drill Runner: Sami Dominguez MD Eosinophils (Bld) [#/Vol] 0.08 10*3/uL Normal 0.00-0.44 [facility] Comment on above: Performed By: #### D CITLALY, LIP, CMPX, TROPI, BNP, CDP, PT #### [facility] [address] [place], [place] [address] Drill Runner: Sami Dominguez MD Eosinophils/100 WBC (Bld) 1 % Normal 1-4 [facility] Comment on above: Performed By: #### D CITLALY, LIP, CMPX, TROPI, BNP, CDP, PT #### [address] [place], [place] [address] Drill Runner: Sami Dominguez MD Immature granulocytes (Bld) [#/Vol] 0 % Normal 0 [facility] Comment on above: Performed By: #### D CITLALY, LIP, CMPX, TROPI, BNP, CDP, PT #### [facility] [address] [place] [address] Drill Runner: Sami Dominguez MD Lymphocytes (Bld) [#/Vol] 0.90 10*3/uL Low 1.10-3.70 [facility] Comment on above: Performed By: #### D CITLALY, LIP, CMPX, TROPI, BNP, CDP, PT #### [facility] [address] [place], [place] [id number] Drill Runner: Sami Dominguez MD Lymphocytes/100 WBC (Bld) 12 % Low 24-43 [facility] Comment on above: Performed By: #### D CITLALY, LIP, CMPX, TROPI, BNP, CDP, PT #### [facility] [address] [place], [place] [id number] Drill Runner: Sami Dominguez MD Monocytes (Bld) [#/Vol] 0.00 10*3/uL Low 0.10-1.20 [facility] Comment on above: Performed By: #### D CITLALY, LIP, CMPX, TROPI, BNP, CDP, PT #### [facility] [address] [place], [place] [id number] Drill Runner: Sami Dominguez MD Monocytes/100 WBC (Bld) 0 % Low 3-12 [facility] Comment on above: Performed By: #### D CITLALY, LIP, CMPX, TROPI, BNP, CDP, PT #### [facility] [address] [place], [place] [address] Drill Runner: Sami Dominguez MD Morphology Geovany (Bld) [Interp] Normal Normal [facility] Comment on above: Performed By: #### D CITLALY, LIP, CMPX, TROPI, BNP, CDP, PT #### [facility] [address] [place], [place] [address] Drill Runner: Sami Dominguez MD Neutrophil (Seg) 87 % High 36-65 [facility] Comment on above: Performed By: #### D CITLALY, LIP, CMPX, TROPI, BNP, CDP, PT #### [facility] [address] [place], [place] [id number] Drill Runner: Sami Dominguez MD Erythrocyte distribution width (RBC) [Ratio] 13.2 % Normal 11.8-14.4 [facility] Comment on above: Performed By: #### D CITLALY, LIP, CMPX, TROPI, BNP, CDP, PT #### [facility] [address] [place], [facility] Drill Runner: Sami Dominguez MD Hematocrit (Bld) [Volume fraction] 33.7 % Low 36.3-47.1 [facility] Comment on above: Performed By: #### D CITLALY, LIP, CMPX, TROPI, BNP, CDP, PT #### [facility] [address] [place], [facility] Drill Runner: Sami Dominguez MD Hemoglobin (Bld) [Mass/Vol] 10.7 g/dL Low 11.9-15.1 [facility] Comment on above: Performed By: #### D CITLALY, LIP, CMPX, TROPI, BNP, CDP, PT #### [address] [place], [facility] Drill Runner: Sami Dominguez MD MCH (RBC) [Entitic mass] 30.2 pg Normal 25.2-33.5 [facility] Comment on above: Performed By: #### D CITLALY, LIP, CMPX, TROPI, BNP, CDP, PT #### [address] [place], [facility] Drill Runner: Sami Dominguez MD MCHC (RBC) [Mass/Vol] 31.8 g/dL Normal 28.4-34.8 [facility] Comment on above: Performed By: #### D CITLALY, LIP, CMPX, TROPI, BNP, CDP, PT #### [address] [place], [facility] Drill Runner: Sami Dominguez MD MCV (RBC) [Entitic vol] 95.2 fL Normal 82.6-102.9 [facility] Comment on above: Performed By: #### D CITLALY, LIP, CMPX, TROPI, BNP, CDP, PT #### [facility] [address] [place], [facility] Drill Runner: aSmi Dominguez MD NRBC Automated 0.0 per 100 WBC Normal 0.0 [facility] Comment on above: Performed By: #### D CITLALY, LIP, CMPX, TROPI, BNP, CDP, PT #### [facility] [address] [place], [facility] Drill Runner: Sami Dominguez MD Platelet mean volume (Bld) [Entitic vol] 8.6 fL Normal 8.1-13.5 [facility] Comment on above: Performed By: #### D CITLALY, LIP, CMPX, TROPI, BNP, CDP, PT #### [facility] [address] [place], [facility] Drill Runner: Sami Dominguez MD Platelets (Bld) [#/Vol] 335 10*3/uL Normal 138-453 [facility] Comment on above: Performed By: #### D CITLALY, LIP, CMPX, TROPI, BNP, CDP, PT #### [facility] [address] [place], [facility] Drill Runner: Sami Dominguez MD RBC (Bld) [#/Vol] 3.54 10*6/uL Low 3.95-5.11 [facility] Comment on above: Performed By: #### D CITLALY, LIP, CMPX, TROPI, BNP, CDP, PT #### [facility] [address] [place], [facility] Drill Runner: Sami Dominguez MD WBC (Bld) [#/Vol] 7.5 10*3/uL Normal 3.5-11.3 [facility] Comment on above: Performed By: #### D CITLALY, LIP, CMPX, TROPI, BNP, CDP, PT #### [facility] [address] [place], [facility] Drill Runner: Sami Dominguez MD Auto Diff Performed NOT REPORTED Normal [facility] Comment on above: Performed By: #### D CITLALY, LIP, CMPX, TROPI, BNP, CDP, PT #### [facility] [address] [place], [facility] Drill Runner: Sami Dominguez MD Platelets (Bld) [#/Vol] NOT REPORTED Normal [facility] Comment on above: Performed By: #### D CITLALY, LIP, CMPX, TROPI, BNP, CDP, PT #### [facility] [address] [place], [facility] Drill Runner: Sami Dominguez MD RBC morphology finding Nom (Bld) NOT REPORTED Normal [facility] Comment on above: Performed By: #### D CITLALY, LIP, CMPX, TROPI, BNP, CDP, PT #### [address] [place], [facility]83 Drill Runner: Sami Dominguez MD WBC Morphology NOT REPORTED Normal [facility] Comment on above: Performed By: #### D CITLALY, LIP, CMPX, TROPI, BNP, CDP, PT #### [address] [place] [id number] Drill Runner: Sami Dominguez MD CTA CHEST ABDOMEN PELVIS W C [facility] 08-02-2019 CTA CHEST ABDOMEN PELVIS W [...] Yunier Yang MD 08/02/19 Final result Normal [facility] [place], [facility] Incoming Radiant Results From [email or web address] - 08/02/2019 1:21 PM EDT EXAMINATION: CTA [...] recommended. Reference: J Am Danika Radiol 2013;10:675-681 [place], [place] EXAMINATION: CTA OF THE CHEST, ABDOMEN [...] and caliber without aneurysmal dilatation or dissection. [place], [place] No evidence for aneurysmal dilatation or dissection of the aorta or its branches. Findings most compatible with polycystic kidney disease. Subtle inflammation adjacent to the descending colon is suggestive of subtle colitis. No perforation or abscess formation. No free intraperitoneal air or fluid. 4.1 cm benign appearing ovarian cyst No follow-up imaging is recommended. Reference: J Am Danika Radiol 2013;10:675-681 [place], [place] Comp Metabolic Pr/rfx MGon 1 (cont.) Normal [facility] Comment on above: Result Comment: Aver age GFR for 40-49 years old: 99 mL/min/1.73sq m Chronic Kidney Disease: <60 mL/min/1.73sq m Kidney failure: <15 mL/min/1.73sq m eGFR calculated using average adult body mass. Additional eGFR calculator available at: http://www.MyDeals.com.com/multiple_crcl_2012.htm Performed By: #### D CITLALY, LIP, CMPX, TROPI, BNP, CDP, PT #### [facility] [address] [address] Drill Runner: Sami Dominguez MD Albumin [Mass/Vol] 4.4 g/dL Normal 3.5-5.2 [facility] Comment on above: Performed By: #### D CITLALY, LIP, CMPX, TROPI, BNP, CDP, PT #### [facility] [address] [place], [place] [id number] Drill Runner: Sami Dominguez MD Albumin/Globulin [Mass ratio] 1.0 {ratio} Normal 1.0-2.5 [facility] Comment on above: Performed By: #### D CITLALY, LIP, CMPX, TROPI, BNP, CDP, PT #### [facility] [address] [place], [place] [id number] Drill Runner: Sami Dominguez MD Alkaline Phos 98 U/L Normal 35-104 [facility] Comment on above: Performed By: #### D CITLALY, LIP, CMPX, TROPI, BNP, CDP, PT #### [facility] [address] [place], [place] [id number] Drill Runner: Sami Dominguez MD ALT [Catalytic activity/Vol] 16 U/L Normal 5-33 [facility] Comment on above: Performed By: #### D CITLALY, LIP, CMPX, TROPI, BNP, CDP, PT #### [facility] [address] [place], [place] [id number] Drill Runner: Sami Dominguez MD Anion gap [Moles/Vol] 18 mmol/L High 9-17 [facility] Comment on above: Performed By: #### D CITLALY, LIP, CMPX, TROPI, BNP, CDP, PT #### [facility] [address] [place], [place] [id number] Drill Runner: Sami Dominguez MD AST [Catalytic activity/Vol] 18 U/L Normal <32 [facility] Comment on above: Performed By: #### D CITLALY, LIP, CMPX, TROPI, BNP, CDP, PT #### [facility] [address] [place], [place] [id number] Drill Runner: Sami Dominguez MD Bilirubin Ql (U) 0.31 mg/dL Normal 0.3-1.2 [facility] Comment on above: Performed By: #### D CITLALY, LIP, CMPX, TROPI, BNP, CDP, PT #### [facility] [address] [place], [place] [id number] Drill Runner: Sami Dominguez MD BUN/CRE Ratio 13 Normal 9-20 [facility] Comment on above: Performed By: #### D CITLALY, LIP, CMPX, TROPI, BNP, CDP, PT #### [facility] [address] [place], [place] [id number] Drill Runner: Sami Dominguez MD Calcium [Mass/Vol] 9.7 mg/dL Normal 8.6-10.4 [facility] Comment on above: Performed By: #### D CITLALY, LIP, CMPX, TROPI, BNP, CDP, PT #### [facility] [address] [place], [place] [id number] Drill Runner: Sami Dominguez MD Chloride [Moles/Vol] 95 mmol/L Low 98-107 [facility] Comment on above: Performed By: #### D CITLALY, LIP, CMPX, TROPI, BNP, CDP, PT #### [facility] [address] [place] [address] Dr. [place], [place] [id number] Drill Runner: Sami Dominguez MD CO2 [Moles/Vol] 18 mmol/L Low 20-31 [facility] Comment on above: Performed By: #### D CITLALY, LIP, CMPX, TROPI, BNP, CDP, PT #### [facility] [address] [place] [address] Drill Runner: Sami Dominguez MD Creatinine [Mass/Vol] 3.07 mg/dL High 0.50-0.90 [facility] Comment on above: Performed By: #### D CITLALY, LIP, CMPX, TROPI, BNP, CDP, PT #### [facility] [address] [place], [place] 5976583 Drill Runner: Sami Dominguez MD GFR, Amer 20 mL/min Low >60 [facility] Comment on above: Performed By: #### D CITLALY, LIP, CMPX, TROPI, BNP, CDP, PT #### [facility] [address] [place] [address] Drill Runner: Sami Dominguez MD GFR,non Amer 17 mL/min Low >60 [facility] Comment on above: Performed By: #### D CITLALY, LIP, CMPX, TROPI, BNP, CDP, PT #### [facility] [address] [place] [address] Drill Runner: Sami Dominguez MD Glucose [Mass/Vol] 89 mg/dL Normal 70-99 [facility] Comment on above: Performed By: #### D CITLALY, LIP, CMPX, TROPI, BNP, CDP, PT #### [address] [place] [address] Drill Runner: Sami Dominguez MD Potassium [Moles/Vol] 3.9 mmol/L Normal 3.7-5.3 [facility] Comment on above: Performed By: #### D CITLALY, LIP, CMPX, TROPI, BNP, CDP, PT #### [address] [place], [place] [id number] Drill Runner: Sami Dominguez MD Protein [Mass/Vol] 8.8 g/dL High 6.4-8.3 [facility] Comment on above: Performed By: #### D CITLALY, LIP, CMPX, TROPI, BNP, CDP, PT #### [facility] [address] [place] [address] Drill Runner: Sami Dominguez MD Sodium [Moles/Vol] 131 mmol/L Low 135-144 [facility] Comment on above: Performed By: #### D CITLALY, LIP, CMPX, TROPI, BNP, CDP, PT #### [facility] [address] [place] [address] Drill Runner: Sami Dominguez MD Staging: Normal [facility] Comment on above: Result Comment: Stag e 1: Some kidney damage normal GFR Stage 2: Mild kidney damage GFR 60-89 Stage 3: Moderate kidney damage GFR 30-59 Stage 4: Severe kidney damage GFR 15-29 Stage 5: Severe kidney damage GFR <15 ESRD - chronic treatment by dialysis or transplant Performed By: #### D CITLALY, LIP, CMPX, TROPI, BNP, CDP, PT #### [facility] [address] [place] [address] Drill Runner: Sami Dominguez MD Urea nitrogen [Mass/Vol] 39 mg/dL High 6-20 [facility] Comment on above: Performed By: #### D CITLALY, LIP, CMPX, TROPI, BNP, CDP, PT #### [facility] [address] [place] [address] Drill Runner: Sami Dominguez MD Comprehensive Metabolic Pane l w/ Reflex to MGon 08-02-2019 Albumin [Mass/Vol] 4.4 g/dL 3.5 - 5.2 g/dL [place] Albumin/Globulin [Mass ratio] 1.0 {ratio} [place] ALP [Catalytic activity/Vol] 98 U/L 35 - 104 U/L [place] ALT [Catalytic activity/Vol] 16 U/L 5 - 33 U/L [place] Anion gap [Moles/Vol] 18 mmol/L High 9 - 17 mmol/L [place] AST [Catalytic activity/Vol] 18 U/L <32 [place] Bilirubin Ql (U) 0.31 mg/dL 0.3 - 1.2 mg/dL [place] Bun/Cre Ratio 13 [place] Calcium [Mass/Vol] 9.7 mg/dL 8.6 - 10. 4 mg/dL [place] Chloride [Moles/Vol] 95 mmol/L Low 98 - 10 7 mmol/L [place] CO2 [Moles/Vol] 18 mmol/L Low 20 - 31 mmol/L [place] Creatinine [Mass/Vol] 3.07 mg/dL High 0.5 - 0.9 mg/dL [place] GFR 20 mL/min Low >60 [place] GFR Non- 17 mL/min Low >60 [place] Glucose [Mass/Vol] 89 mg/dL 70 - 99 mg/dL [place] Interpretation and review of laboratory results Abnormal [place] Potassium [Moles/Vol] 3.9 mmol/L 3.7 - 5.3 mmol/L [place] Protein [Mass/Vol] 8.8 g/dL High 6.4 - 8.3 g/dL [place] Sodium [Moles/Vol] 131 mmol/L Low 135 - 144 mmol/L [place] Urea nitrogen [Mass/Vol] 39 mg/dL High 6 - 20 mg/dL [place] D-Dimer Teston 08-02-2019 D-Dimer Test 1.15 mg/L FEU High 0.19-0.50 [facility] Comment on above: Result Comment: Elevated [...] LIP, CMPX, TROPI, BNP, CDP, PT #### [facility] [address] [place] [address] Drill Runner: Sami Dominguez MD D-Dimer, Quantitativeon - D-Dimer, Quant 1.15 [place] Comment on above: Elevated levels of [...] Interpretation and review of laboratory results Abnormal [place] Lactate, Sepsison 08-02-2019 Lactic Acid, Sepsis 3.6 mmol/L High 0.5-1.9 [facility] Comment on above: Performed By: #### L ACDS #### [facility] [address] [place] [address] Drill Runner: Sami Dominguez MD Lactic Acid,Sep Wbld NOT REPORTED Normal 0.5-1.9 [facility] Comment on above: Performed By: #### L ACDS #### [address] [place] [address] Drill Runner: Sami Dominguez MD Interpretation and review of laboratory results Abnormal [place] Lactic Acid, Sepsis 3.6 mmol/L High 0.5 - 1. 9 mmol/L [place] Lactic Acid, Sepsis, Whole Blood NOT REPORTED 0.5 - 1.9 mmol/L [place] Lactic Acidon 08-02-2019 Lactate [Moles/Vol] 1.0 mmol/L Normal 0.5-2.2 [facility] Comment on above: Performed By: #### D CITLALY, LIP, CMPX, TROPI, BNP, CDP, PT #### [facility] [address] [place] [address] Drill Runner: Sami Dominguez MD Lactate [Moles/Vol] NOT REPORTED Normal 0.7-2.1 [facility] Comment on above: Performed By: #### D CITLALY, LIP, CMPX, TROPI, BNP, CDP, PT #### [facility] [address] [place] [address] Drill Runner: Sami Dominguez MD Lactic Acid, Plasmaon 2018 Lactate [Moles/Vol] 1 mmol/L 0.5 - 2. 2 mmol/L [place] Lactic Acid, Whole Blood NOT REPORTED 0.7 - 2.1 mmol/L [place] Lipaseon 08-02-2019 Lipase [Catalytic activity/Vol] 38 U/L Normal 13-60 [facility] Comment on above: Performed By: #### D CITLALY, LIP, CMPX, TROPI, BNP, CDP, PT #### [facility] [address] [place] [address] Drill Runner: Sami Dominguez MD Lipase [Catalytic activity/Vol] 38 U/L 13 - 60 U/L [place] Metabolic Panelon 08-02-2019 GFR/1.73 sq M predicted among non-blacks MDRD (S/P/Bld) [Vol rate/Area] [place] Comment on above: Stage 1: Some [...] body mass. Additional eGFR calculator available at: http://www.MyDeals.com.[employer]/multiple_crcl_2012.htm Microscopic Urinalysison Amorphous, UA NOT REPORTED None [place] Bacteria, UA 1+ Abnormal None [place] Casts UA NOT REPORTED /LPF [place] Crystals UA NOT REPORTED None /HPF [place] Epithelial Cells UA 2 TO 5 [place] Interpretation and review of laboratory results Abnormal [place] Mucus, UA NOT REPORTED None [place] Other Observations UA NOT REPORTED NOT REQ. M [place] RBC (U) [#/Vol] None [place] Renal Epithelial, Urine NOT REPORTED 0 /HPF [place] Trichomonas, UA NOT REPORTED None [place] WBC, UA 50 TO 100 [place] Yeast, UA NOT REPORTED None [facility], [place] PTon 08-02-2019 INR Coag (PPP) [Relative time] 1.0 {INR} Normal 0.9-1.2 [facility] Comment on above: Performed By: #### D CITLALY, LIP, CMPX, TROPI, BNP, CDP, PT #### [facility] [address] [place] [address] Drill Runner: Sami Dominguez MD PT Coag (PPP) [Time] 10.0 s Normal 9.7-12.2 [facility] Comment on above: Performed By: #### D CITLALY, LIP, CMPX, TROPI, BNP, CDP, PT #### [facility] [address] [place] [address] Drill Runner: Sami Dominguez MD Protime-INRon 08-02-2019 INR Coag (PPP) [Relative time] 1.0 {INR} [place] PT Coag (PPP) [Time] 10 s [place] Troponinon 08-02-2019 Troponin I.cardiac [Mass/Vol] ng/mL Normal <0.03 [facility] Comment on above: Result Comment: Trop onin T results cannot be compared to Troponin-I results. Performed By: #### D CITLALY, LIP, CMPX, TROPI, BNP, CDP, PT #### [facility] [address] [place] [address] Drill Runner: Sami Dominguez MD Troponin I.cardiac [Mass/Vol] Normal [facility] Comment on above: Result Comment: Refe [...] LIP, CMPX, TROPI, BNP, CDP, PT #### [facility] [address] [place] [address] Drill Runner: Sami Dominguez MD Troponin I.cardiac [Mass/Vol] NOT REPORTED Normal 0-14 [facility] Comment on above: Performed By: #### D CITLALY, LIP, CMPX, TROPI, BNP, CDP, PT #### [facility] [address] [place] [address] Drill Runner: Sami Dominguez MD Troponin I.cardiac [Mass/Vol] [place] Comment on above: Reference Range: <0.03 [...] diagnosis. Troponin T.cardiac [Mass/Vol] ug/L <0.03 ng/mL [place] Comment on above: Troponin T results c annot be compared to Troponin-I results. Troponin, High Sensitivity NOT REPORTED 0 - 14 ng/L [place] Troponin I.cardiac [Mass/Vol] ng/mL Normal <0.03 [facility] Comment on above: Result Comment: Trop onin T results cannot be compared to Troponin-I results. Performed By: #### D CITLALY, LIP, CMPX, TROPI, BNP, CDP, PT #### [facility] [address] [place] [address] Drill Runner: Sami Dominguez MD Troponin I.cardiac [Mass/Vol] Normal [facility] Comment on above: Result Comment: Refe [...] LIP, CMPX, TROPI, BNP, CDP, PT #### [facility] [address] [place] [address] Drill Runner: Sami Dominguez MD Troponin I.cardiac [Mass/Vol] NOT REPORTED Normal 0-14 [facility] Comment on above: Performed By: #### D CITLALY, LIP, CMPX, TROPI, BNP, CDP, PT #### [facility] [address] [place] [address] Drill Runner: Sami Dominguez MD Troponin I.cardiac [Mass/Vol] [place] Comment on above: Reference Range: <0.03 [...] diagnosis. Troponin T.cardiac [Mass/Vol] ug/L <0.03 ng/mL [place] Comment on above: Troponin T results c annot be compared to Troponin-I results. Troponin, High Sensitivity NOT REPORTED 0 - 14 ng/L [place] UA w/Reflex Cultureon 2018 Acetoacetic Acid,Ur Negative Normal NEG [facility] Comment on above: Performed By: #### D CITLALY, LIP, CMPX, TROPI, BNP, CDP, PT #### [facility] [address] [place] [address] Drill Runner: Sami Dominguez MD Bilirubin, SemiQt,Ur Negative Normal NEG [facility] Comment on above: Performed By: #### D CITLALY, LIP, CMPX, TROPI, BNP, CDP, PT #### [facility] [address] [place], [place] [id number] Drill Runner: Sami Dominguez MD Color (U) YELLOW Normal YEL [facility] Comment on above: Performed By: #### D CITLALY, LIP, CMPX, TROPI, BNP, CDP, PT #### [facility] [address] [place], [place] 470[address]83 Drill Runner: Sami Dominguez MD Glucose Ql (U) Negative Normal NEG [facility] Comment on above: Performed By: #### D CITLALY, LIP, CMPX, TROPI, BNP, CDP, PT #### [facility] [address] [place], [place] 475[address]83 Drill Runner: Sami Dominguez MD Hemoglobin, Ur 1+ Abnormal NEG [facility] Comment on above: Performed By: #### D CITLALY, LIP, CMPX, TROPI, BNP, CDP, PT #### [facility] [address] [place] [address] Dr. [place], [facility]83 Drill Runner: Sami Dominguez MD Leukocyte esterase Test strip Ql (U) MODERATE Abnormal NEG [facility] Comment on above: Performed By: #### D CITLALY, LIP, CMPX, TROPI, BNP, CDP, PT #### [address] [place], [facility]83 Drill Runner: Sami Dominguez MD Nitrite,Ur Negative Normal [facility] Comment on above: Performed By: #### D CITLALY, LIP, CMPX, TROPI, BNP, CDP, PT #### [facility] [address] [place] [address] Drill Runner: Sami Dominguez MD pH (U) 6.0 [pH] Normal 5.0-9.0 [facility] Comment on above: Performed By: #### D CITLALY, LIP, CMPX, TROPI, BNP, CDP, PT #### [facility] [address] [place] [address] Drill Runner: Sami Dominguez MD Protein Ql (U) TRACE Abnormal NEG [facility] Comment on above: Performed By: #### D CITLALY, LIP, CMPX, TROPI, BNP, CDP, PT #### [facility] [address] [place] [id number] Drill Runner: Sami Dominguez MD Specific gravity (U) [Rel density] 1.010 Normal 1.010-1.020 [facility] Comment on above: Performed By: #### D CITLALY, LIP, CMPX, TROPI, BNP, CDP, PT #### [facility] [address] [place] [address] Dr. [place], [place] [id number] Drill Runner: Sami Dominguez MD Turbidity CLEAR Normal CLEAR [facility] Comment on above: Performed By: #### D CITLALY, LIP, CMPX, TROPI, BNP, CDP, PT #### [facility] [address] [place] [address] Dr. [place], [place] 8155783 Drill Runner: Sami Dominguez MD Urobilinogen,Ur Normal Normal NORM [facility] Comment on above: Performed By: #### D CITLALY, LIP, CMPX, TROPI, BNP, CDP, PT #### [address] [place], [place] 7852283 Drill Runner: Sami Dominguez MD Comment NOT REPORTED Normal [facility] Comment on above: Performed By: #### D CITLALY, LIP, CMPX, TROPI, BNP, CDP, PT #### [facility] [address] [place], [place] [id number] Drill Runner: Sami Dominguez MD Urinalysis Reflex to Culture on 08-02-2019 Bilirubin Urine Negative NEGATIVE [facility] [place], [place] Color, UA YELLOW YELLOW [facility] [place], [place] Glucose, Ur Negative NEGATIVE [facility] [place] Interpretation and review of laboratory results Abnormal [facility] [place] Ketones Ql (U) Negative NEGATIVE [place] Leukocyte esterase Test strip Ql (U) MODERATE Abnormal NEGATIVE [place] Nitrite, Urine Negative NEGATIVE [place] pH, UA 6.0 [place] Protein (U) [Mass/Vol] TRACE Abnormal NEGATIVE Me [facility] [place], [place] Specific [place], UA 1.010 [place], [place] Turbidity UA CLEAR CLEAR [place] Urinalysis Comments NOT REPORTED [place] Urine Hgb 1+ Abnormal NEGATIVE [place] Urobilinogen, Urine Normal Normal [place] Urinalysis,Microon 9 ----- Normal [facility] Comment on above: Performed By: #### D CITLALY, LIP, CMPX, TROPI, BNP, CDP, PT #### [address] [place] [address] Drill Runner: Sami Dominguez MD Bacteria LM.HPF (Urine sed) [#/Area] 1+ Abnormal [facility] Comment on above: Performed By: #### D CITLALY, LIP, CMPX, TROPI, BNP, CDP, PT #### [address] [place] [address] Drill Runner: Sami Dominguez MD Epithelial cells LM.HPF (Urine sed) [#/Area] 2 TO 5 Normal 0-25 [facility] Comment on above: Performed By: #### D CITLALY, LIP, CMPX, TROPI, BNP, CDP, PT #### [address] [place] [address] Drill Runner: Sami Dominguez MD RBC (U) [#/Vol] None Normal 0-2 [facility] Comment on above: Performed By: #### D CITLALY, LIP, CMPX, TROPI, BNP, CDP, PT #### [address] [place] [address] Drill Runner: Sami Dominguez MD WBC (U) [#/Vol] 50 TO 100 Normal 0-5 [facility] Comment on above: Performed By: #### D CITLALY, LIP, CMPX, TROPI, BNP, CDP, PT #### [facility] [address] [place] [address] Drill Runner: Sami Dominguez MD Amorphous sediment LM Ql (Urine sed) NOT REPORTED Normal [facility] Comment on above: Performed By: #### D CITLALY, LIP, CMPX, TROPI, BNP, CDP, PT #### [facility] [address] [place] [address] Drill Runner: Sami Dominguez MD Casts LM.LPF (Urine sed) [#/Area] NOT REPORTED Normal [facility] Comment on above: Performed By: #### D CITLALY, LIP, CMPX, TROPI, BNP, CDP, PT #### [facility] [address] [place] [address] Drill Runner: Sami Dominguez MD Crystals LM Nom (Urine sed) NOT REPORTED Normal [facility] Comment on above: Performed By: #### D CITLALY, LIP, CMPX, TROPI, BNP, CDP, PT #### [facility] [address] [place] [address] Drill Runner: Sami Dominguez MD Epithelial, Renal NOT REPORTED Normal 0 [facility] Comment on above: Performed By: #### D CITLALY, LIP, CMPX, TROPI, BNP, CDP, PT #### [facility] [address] [place] [address] Drill Runner: Sami Dominguez MD Mucus Strands NOT REPORTED Normal [facility] Comment on above: Performed By: #### D CITLALY, LIP, CMPX, TROPI, BNP, CDP, PT #### [facility] [address] [place], [place] [id number] Drill Runner: Sami Dominguez MD Other Observations NOT REPORTED Normal NREQ [facility] Comment on above: Performed By: #### D CITLALY, LIP, CMPX, TROPI, BNP, CDP, PT #### [facility] [address] [place] [address] Drill Runner: Sami Dominguez MD Trichomonas NOT REPORTED Normal NONE [facility] Comment on above: Performed By: #### D CITLALY, LIP, CMPX, TROPI, BNP, CDP, PT #### [facility] [address] [place] [address] Drill Runner: Sami Dominguez MD Yeast LM Ql (Urine sed) NOT REPORTED Normal NONE [facility] Comment on above: Performed By: #### D CITLALY, LIP, CMPX, TROPI, BNP, CDP, PT #### [facility] [address] [place] [address] Drill Runner: Sami Dominguez MD XR CHEST PORTABLEon 08-02-20 [...] Cullen Ngo MD 08/02/19 Final result Normal [facility] EXAMINATION: ONE XRA Y VIEW OF THE CHEST 08/02/2019 12:59 pm COMPARISON: None. HISTORY: ORDERING SYSTEM PROVIDED HISTORY: CP TECHNOLOGIST PROVIDED HISTORY: CP FINDINGS: Heart size and pulmonary vessels are within normal limits. Lungs are clear. No focal infiltrates or significant pleural effusions are seen. There is no acute osseous abnormality. Monitor leads overlie the chest. [facility], [place] No acute cardiopulmo nary process. [facility], [place], [facility] Incoming Radiant Results From [employer] - 08/02/2019 1:10 PM EDT EXAMINATION: ONE [...] the chest. IMPRESSION: No acute cardiopulmonary process. [facility] [place], [place] Vital Signs Date Time Vital Sign Value Performing Clinician Facility 07-27-2024 08:34-0400 Body temperature 97.81 [degF] Lucero Hudson JEWELRY MECHANIC Work Phone: [facility] 07-27-2024 08:34-0400 Diastolic blood pressure 74 mm[Hg] Lucero Mckenzieion JEWELRY MECHANIC Work Phone: [facility] 07-27-2024 08:34-0400 Heart rate 83 /min Lucero Hudson JEWELRY MECHANIC Work Phone: [facility] 07-27-2024 08:34-0400 SaO2% (BldA) [Mass fraction] 98 % Lucero Hudson JEWELRY MECHANIC Work Phone: [facility] 07-27-2024 08:34-0400 Systolic blood pressure 118 mm[Hg] Lucero Mckenzieion JEWELRY MECHANIC Work Phone: [facility] 03-15-2024 17:34-0400 Body height 157.48 cm [employer] Andreia Jerry Work Phone: [facility] 03-15-2024 17:34-0400 Body mass index (BMI) [Ratio] 31.8 kg/m2 [employer] Andreia Jerry Work Phone: [facility] 03-15-2024 17:34-0400 Body temperature 100.3 [degF] [employer]AV[employer] SALESPERSON Andreia Jerry Work Phone: [facility] 03-15-2024 17:34-0400 Body weight 78.92 kg [employer] Andreia Jerry Work Phone: [facility] 03-15-2024 17:34-0400 Diastolic blood pressure 79 mm[Hg] [employer] SAL[employer] Andreia Jerry Work Phone: [facility] 03-15-2024 17:34-0400 Heart rate 88 /min [employer] Andreia Jerry Work Phone: [facility] 03-15-2024 17:34-0400 Respiratory rate 18 /min [employer] Andreia Jerry Work Phone: [facility] 03-15-2024 17:34-0400 SaO2% (BldA) [Mass fraction] 96 % [employer] SAL[employer]ERSON Andreia Jerry Work Phone: [facility] 03-15-2024 17:34-0400 Systolic blood pressure 121 mm[Hg] [employer]AV[employer] SALESPERSON Andreia Jerry Work Phone: [facility] 07-30-2022 17:40-0400 Body height 157.48 cm Yaneth Toni Other [employer] Other 07-30-2022 17:40-0400 Body mass index (BMI) [Ratio] 36.69 kg/m2 Yaneth Toni Other [employer] Other 07-30-2022 17:40-0400 Body temperature 97.4 [degF] Yaneth Toni Other [employer] Other 07-30-2022 17:40-0400 Body weight 90.99 kg Yaneth Toni Other [employer] Other 07-30-2022 17:40-0400 Diastolic blood pressure 85 mm[Hg] Yaneth Toni Other [employer] Other 07-30-2022 17:40-0400 Respiratory rate 18 /min Yaneth Toni Other [employer] Other 07-30-2022 17:40-0400 SaO2% (BldA) [Mass fraction] 99 % Yaneth Toni Other [employer] Other 07-30-2022 17:40-0400 Systolic blood pressure 124 mm[Hg] Yaneth Toni Other [employer] Other 07-03-2022 09:45-0400 Body height 157.48 cm Estefania Camarillotoritab Other [employer] Other 07-03-2022 09:45-0400 Body mass index (BMI) [Ratio] 36.76 kg/m2 Estefania Camarillogary Other [employer] Other 07-03-2022 09:45-0400 Body temperature 97 [degF] Estefania Camarillogary Other [employer] Other 07-03-2022 09:45-0400 Body weight 91.17 kg Estefania Camarillotoritab Other [employer] Other 07-03-2022 09:45-0400 Diastolic blood pressure 60 mm[Hg] Estefania Camarillogary Other [employer] Other 07-03-2022 09:45-0400 SaO2% (BldA) [Mass fraction] 99 % Estefania Camarillogary Other [employer] Other 07-03-2022 09:45-0400 Systolic blood pressure 110 mm[Hg] Estefania Vo Other [employer] Other 06-20-2022 16:10-0400 Diastolic blood pressure 68 mm[Hg] DO Ming Ibarraman Work Phone: [facility] 06-20-2022 16:10-0400 Heart rate 69 /min DO Ming Alexis Work Phone: [facility] 06-20-2022 16:10-0400 Respiratory rate 18 /min DO Ming Alexis Work Phone: [facility] 06-20-2022 16:10-0400 SaO2% (BldA) [Mass fraction] 100 % DO Ming Alexis Work Phone: [facility] 06-20-2022 16:10-0400 Systolic blood pressure 126 mm[Hg] DO Ming Alexis Work Phone: [facility] 06-20-2022 13:15-0400 Body height 157.48 cm DO Ming Alexis Work Phone: [facility] 06-20-2022 13:15-0400 Body temperature 98.6 [degF] DO Ming Alexis Work Phone: [facility] 06-20-2022 13:15-0400 Body weight 91.5 kg DO Ming Alexis Work Phone: [facility] 06-18-2022 10:45-0400 Diastolic blood pressure 79 mm[Hg] DO Ming Alexis Work Phone: [facility] 06-18-2022 10:45-0400 Heart rate 66 /min DO Ming Alexis Work Phone: [facility] 06-18-2022 10:45-0400 Respiratory rate 16 /min DO Ming Alexis Work Phone: [facility] 06-18-2022 10:45-0400 SaO2% (BldA) [Mass fraction] 100 % DO Ming Alexis Work Phone: [facility] 06-18-2022 10:45-0400 Systolic blood pressure 130 mm[Hg] DO Ming Alexis Work Phone: [facility] 06-18-2022 08:08-0400 Body mass index (BMI) [Ratio] 37.8 kg/m2 DO Ming Espinoza Work Phone: [facility] 06-18-2022 07:41-0400 Body height 157.48 cm DO Ming Espinoza Work Phone: [facility] 06-18-2022 07:41-0400 Body weight 93.89 kg DO Ming Espinoza Work Phone: [facility] 06-18-2022 06:26-0400 Body temperature 98.5 [degF] DO Ming Espinoza Work Phone: [facility] 05-30-2022 11:00-0400 Body height 157.48 cm Jesus Parham Other [employer] Other 05-30-2022 11:00-0400 Body mass index (BMI) [Ratio] 36.76 kg/m2 Jesus Parham Other [employer] Other 05-30-2022 11:00-0400 Body temperature 97.6 [degF] Jesus Parham Other [employer] Other 05-30-2022 11:00-0400 Body weight 91.17 kg Jesus Parham Other [employer] Other 05-30-2022 11:00-0400 Diastolic blood pressure 76 mm[Hg] Jesus Parham Other [employer] Other 05-30-2022 11:00-0400 SaO2% (BldA) [Mass fraction] 98 % Jesus Parham Other [employer] Other 05-30-2022 11:00-0400 Systolic blood pressure 128 mm[Hg] Jesus Parham Other [employer] Other 05-02-2022 14:40-0400 Body height 157.48 cm Yaneth Toni Other [employer] Other 05-02-2022 14:40-0400 Body mass index (BMI) [Ratio] 36.76 kg/m2 Yaneth Toni Other [employer] Other 05-02-2022 14:40-0400 Body temperature 97.7 [degF] Yaneth Toni Other [employer] Other 05-02-2022 14:40-0400 Body weight 91.17 kg Yaneth Tnoi Other [employer] Other 05-02-2022 14:40-0400 Diastolic blood pressure 88 mm[Hg] Yaneth Toni Other [employer] Other 05-02-2022 14:40-0400 Respiratory rate 18 /min Yaneth Toni Other [employer] Other 05-02-2022 14:40-0400 SaO2% (BldA) [Mass fraction] 98 % Yaneth Toni Other [employer] Other 05-02-2022 14:40-0400 Systolic blood pressure 121 mm[Hg] Yaneth Toni Other [employer] Other 04-30-2022 10:10-0400 Body height 157.48 cm Dipika Stinson Other [employer] Other 04-30-2022 10:10-0400 Body mass index (BMI) [Ratio] 37.86 kg/m2 Dipika Stinson Other [employer] Other 04-30-2022 10:10-0400 Body temperature 97.4 [degF] Dipika Stinson Other [employer] Other 04-30-2022 10:10-0400 Body weight 93.9 kg Dipika Stinson Other [employer] Other 04-30-2022 10:10-0400 Diastolic blood pressure 80 mm[Hg] Dipika Stinson Other [employer] Other 04-30-2022 10:10-0400 Respiratory rate 16 /min Dipika Stinson Other [employer] Other 04-30-2022 10:10-0400 SaO2% (BldA) [Mass fraction] 100 % Dipika Stinson Other [employer] Other 04-30-2022 10:10-0400 Systolic blood pressure 117 mm[Hg] Dipika Stinson Other [employer] Other 04-01-2022 09:13-0400 Diastolic blood pressure 62 mm[Hg] DO Ming Alexis Work Phone: [facility] 04-01-2022 09:13-0400 Heart rate 83 /min DO Ming Alexis Work Phone: [facility] 04-01-2022 09:13-0400 Respiratory rate 16 /min DO Ming Alexis Work Phone: [facility] 04-01-2022 09:13-0400 SaO2% (BldA) [Mass fraction] 97 % DO Ming Espinoza Work Phone: [facility] 04-01-2022 09:13-0400 Systolic blood pressure 101 mm[Hg] DO Ming Espinoza Work Phone: [facility] 04-01-2022 07:23-0400 Body height 157.48 cm DO Ming Espinoza Work Phone: [facility] 04-01-2022 07:23-0400 Body mass index (BMI) [Ratio] 37.8 kg/m2 DO Ming Espinoza Work Phone: [facility] 04-01-2022 07:23-0400 Body temperature 97.8 [degF] DO Ming Espinoza Work Phone: [facility] 04-01-2022 07:23-0400 Body weight 93.89 kg DO Ming Espinoza Work Phone: [facility] 12-06-2021 16:20-0500 Body height 157.48 cm Yaneth Toni Other [employer] Other 12-06-2021 16:20-0500 Body mass index (BMI) [Ratio] 37.86 kg/m2 Yaneth Toni Other [employer] Other 12-06-2021 16:20-0500 Body weight 93.9 kg Yaneth Toni Other [employer] Other 12-06-2021 16:20-0500 Diastolic blood pressure 89 mm[Hg] Yaneth Toni Other [employer] Other 12-06-2021 16:20-0500 Respiratory rate 18 /min Yaneth Toni Other [employer] Other 12-06-2021 16:20-0500 SaO2% (BldA) [Mass fraction] 97 % Yaneth Toni Other [employer] [facility] [employer] Other 12-06-2021 16:20-0500 Systolic blood pressure 134 mm[Hg] Yaneth Toni Other [employer] Other 08-02-2019 16:35-0400 Body Temperature 99.3 [degF] [facility] [place] [place] [facility] 16:27-0400 Pulse (Heart Rate) 110 /min [place], [place] 08-02-2019 16:27-0400 Pulse Oximetry 98 % [place], [place] 08-02-2019 16:27-0400 Respiratory Rate 14 /min [facility] [place] [facility]-2019 16:16-0400 BP Diastolic 56 mm[Hg] [place], [place] 08-02-2019 16:16-0400 BP Systolic 97 mm[Hg] [place] 08-02-2019 14:59-0400 BMI (Body Mass Index) 37.79 kg/m2 [place], [place] 08-02-2019 14:59-0400 Body weight 90.72 kg [place] 08-02-2019 14:59-0400 Height 154.9 cm [place] Encounters Encounter Date Encounter Type Care Provider Facility Start: 08-25-2024 End: 08-25-2024 Patient encounter procedure Ming Espinoza DO Work Phone: [facility] Work Phone: Start: 08-25-2024 End: 08-25-2024 ambulatory Ming Espinoza DO Work Phone: [facility] Work Phone: Start: 08-02-2024 End: 08-03-2024 External Result Encounter Blake Hinojosa DO Work Phone: [facility] External [facility] Unsolicited Start: 08-02-2024 End: 08-03-2024 External Result Encounter Blake Hinojosa DO Work Phone: [facility] External [facility] Unsolicited Start: 08-02-2024 End: 08-02-2024 Office outpatient visit 10 minutes Blake Hinojosa DO Work Phone: [facility] Comment on above: Cyst of left ovary ( Primary Dx); Dyspareunia in female Start: 08-02-2024 End: 08-02-2024 ambulatory BLAKE HINOJOSA Not Available Start: 08-02-2024 End: 08-02-2024 Patient encounter procedure DO Ming Espinoza Work Phone: [facility] Work Phone: Start: 08-02-2024 End: 08-02-2024 ambulatory DO Ming Espinoza Work Phone: [facility] Work Phone: Start: 07-31-2024 End: 07-31-2024 Clinisync Result Encounter Generic External Data Provider [facility] External [facility] Unsolicited Start: 07-31-2024 End: 07-31-2024 Clinisync Result Encounter Generic External Data Provider [facility] External Department Unsolicited Start: 07-27-2024 End: 07-27-2024 Office outpatient visit 15 minutes Lucero Hudson NP Work Phone: [facility] Comment on above: Acute non-recurrent pansinusitis (Primary Dx); Side effect of medication Start: 07-27-2024 End: 07-27-2024 ambulatory MING ESPINOZA Not Available Start: 07-07-2024 End: 07-07-2024 ambulatory [facility] Start: 07-02-2024 End: 07-02-2024 ambulatory [facility] Start: 05-19-2024 End: 05-19-2024 ambulatory [facility] Start: 04-27-2024 End: 04-27-2024 ambulatory MUNIRA TRENTMADHU [facility] Start: 04-23-2024 ambulatory MUNIRA TRENTMADHU [facility] Start: 04-19-2024 End: 04-19-2024 ambulatory BLAKE Ginette HINOJOSA Not Available Start: 04-14-2024 End: 04-14-2024 ambulatory MUNIRA TRENTMADHU Not Available Start: 03-23-2024 End: 03-23-2024 ambulatory MING ESPINOZA Not Available Start: 03-15-2024 End: 03-15-2024 [address] [facility] Work Phone: Start: 03-15-2024 End: 03-15-2024 Departed Referred [employer] CARAVAN SALESPERSONRoxy Edwards Work Phone: [facility] [place] Work Phone: Start: 03-15-2024 End: 03-15-2024 Patient encounter procedure [employer] CARAVAN SALESPERSONRoxy Edwards Work Phone: [facility] Justin Work Phone: Start: 12-23-2023 End: 12-23-2023 ambulatory MUNIRA NEWMANMADHU [facility] Start: 12-01-2023 End: 12-01-2023 ambulatory MING ESPINOZA Not Available Start: 11-06-2023 End: 11-06-2023 Patient encounter procedure DO Ming Espinoza Work Phone: [facility] [address] Work Phone: Start: 11-06-2023 End: 11-06-2023 ambulatory DO Ming Espinoza Work Phone: [facility] Work Phone: Start: 10-13-2023 End: 10-13-2023 ambulatory MING ESPINOZA Not Available Start: 09-01-2023 End: 09-01-2023 ambulatory MUNIRA NEWMANMADHU [facility] Start: 08-26-2023 ambulatory MUNIRA Cazares juan of [facility] Start: 07-30-2022 End: 07-30-2022 ambulatory Yaneht Toni Other [employer] Other Start: 07-30-2022 Office outpatient vi sit 25 minutes Yaneth Toni [facility] Start: 07-29-2022 End: 07-30-2022 ambulatory YANETH TONI Facility: Start: 07-16-2022 End: 07-16-2022 ambulatory DO Ming Espinoza Work Phone: [facility] Work Phone: Start: 07-16-2022 End: 07-16-2022 Patient encounter procedure DO Ming Espinoza Work Phone: [facility] Start: 07-03-2022 End: 07-03-2022 ambulatory Estefania Vo Other [employer] Other Start: 07-03-2022 Follow-up encounter Estefania [facility] Start: 06-20-2022 End: 06-20-2022 ambulatory Jesus Parham Other [employer] Other Start: 06-20-2022 Telephone encounter Jesus Macedo [facility] Start: 06-20-2022 End: 06-20-2022 Emergency department patient visit DO Ming Espinoza Work Phone: [facility] Start: 06-18-2022 End: 06-18-2022 Admission to same day surgery center DO Ming Espinoza Work Phone: [facility] [place] Start: 06-14-2022 End: 06-14-2022 Patient encounter procedure DO Ming Espinoza Work Phone: [facility] Start: 06-06-2022 End: 06-07-[address] BRINDA HINOJOSA Facility:[facility] Start: 06-05-2022 End: 06-05-2022 Patient encounter procedure DO Ming Espinoza Work Phone: [facility] Start: 06-03-2022 End: 06-03-2022 ambulatory Jesus Parham Other [employer] Other Start: 06-03-2022 Encounter for other preprocedural examination Jesus Dione [facility] V[facility] Surgery Start: 06-03-2022 Telephone encounter Jesus Hellen adler [facility] V[facility] Surgery Start: 05-30-2022 End: 05-30-2022 ambulatory Jesus Parham Other [employer] Other Start: 05-30-2022 [facility] visit new patient Jesus Montanez chalo [facility] Vascular Surgery Start: 05-30-2022 End: 05-30-2022 Patient encounter procedure DO Ming Espinoza Work Phone: [facility] Start: 05-29-[address] BLAKE HINOJOSA Facil ity:H1 Start: 05-02-2022 End: 05-02-2022 ambulatory Yaneth Toni Other [employer] Other Start: 05-02-2022 Office outpatient vi sit 25 minutes Yaneth Toni [facility] Nephrology Start: 04-30-2022 End: 04-30-2022 ambulatory Dipika Stinson Other [employer] Other Start: 04-30-2022 Office outpatient vi sit 15 minutes Dipika Stinson [facility] Start: 04-30-2022 Encounter for preprocedural laboratory examination YANETH TONI [facility] Start: 04-29-2022 Encounter for other preprocedural examination DR DOCTOR ALEJANDRO [facility] Start: 04-27-2022 End: 04-28-2022 Encounter for other preprocedural examination DR MING ESPINOZA Facility:[facility] Start: 04-27-2022 End: 04-28-[address] MING ESPINOZA Facility:[facility] Start: 04-27-2022 End: 04-28-2022 Encounter for preprocedural laboratory examination YANETH TONI Facility:[facility] Start: 04-03-2022 Encounter for other specified special examinations DR DOCTOR ALEJANDRO [facility] Start: 04-01-2022 End: 04-01-2022 Admission to same day surgery center DO Ming Espinoza Work Phone: [facility] Start: 03-29-2022 End: 03-30-[address] DOCTOR ALEJANDRO Facility:[facility] Start: 03-29-2022 End: 03-30-2022 Encounter for other specified special examinations DR DOCTOR ALEJANDRO Facility:[facility] Start: 03-28-2022 End: 03-28-2022 Patient encounter procedure DO Ming Espinoza Work Phone: [facility] Start: 02-26-2022 End: 02-26-2022 ambulatory Shabbir Jones Other [employer] Other Start: 02-26-2022 Telephone encounter Shabbir [employer] Start: 12-06-2021 End: 12-06-2021 ambulatory Yaneth Toni Other [employer] Other Start: 12-06-2021 Office outpatient vi sit 25 minutes Yaneth Toni [facility] Start: 12-03-2021 End: 12-04-2021 ambulatory YANETH TONI Facility:[facility] Start: 09-01-2021 End: 09-02-[address] MING ESPINOZA Facility:[facility] Start: 08-02-2019 End: 08-02-2019 [facility] Start: 08-02-2019 End: 08-02-2019 Emergency department patient visit [facility] Work Phone: [facility] ED Comment on above: Acute sepsis (HCC) ( Primary Dx); Acute cystitis without hematuria; Chronic renal failure, stage 4 (severe) (HCC); Polycystic kidney disease Procedures Date Procedure Procedure Detail Performing Clinician Start: 08-25-2024 Screening mammograph y of bilateral breasts Ming Espinoza DO Work Phone: Start: 08-02-2024 Carcinoembryonic ant igen cea Blake Hinojosa DO Work Phone: Comment on above: Serial tumor marker results determined by assays using different manufacturers or methods may not be comparable. 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 Start: 08-02-2024 Plain chest X-ray DO Chong chemailzz Espinoza Work Phone: Start: 08-02-2024 Carcinoembryonic ant igen cea Blake Hinojosa DO Work Phone: Comment on above: Result Comment: Seri al tumor marker results determined by assays using different manufacturers or methods may not be comparable. 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 ASSAY. PERFORMED BY: [facility] [address] [place] [address] PATHOLOGIST BLENDER/BRAZE APPLICATOR ANAHY MCKEE M.D. Performed By: #### C A125 ####[facility] ,#### CEA ####[facility] [id number] [place] [address] [facility] Start: 08-02-2024 Immunoassay tumor an tigen quantitative ca 125 Blake Hinojosa DO Work Phone: Start: 07-31-2024 ALL CBC WITH AUTO DIFF Generic External Data Provider Start: 03-04-2023 History of renal transplant Re nal transplant recipient Lucero Hudson JEWELRY MECHANIC Work Phone: Start: 07-16-2022 End: 07-16-2022 Screening mammography of bilateral breasts DO Ming Alexis Work Phone: Start: 06-18-2022 Arteriovenous fistulization DO Ming Espinoza Work Phone: Start: 05-30-2022 Ultrasound (US) dopp ler flow mapping of vein of upper limb DO Ming Espinoza Work Phone: Start: 04-01-2022 Screening colonoscopy D O Ming Espinoza Work Phone: Start: 04-01-2022 Colonoscopy Lucero Sanjuana latham JEWELRY MECHANIC Work Phone: Start: 08-02-2019 Assay of lactate VIDAL KAITLIN Start: 08-02-2019 Assay of troponin quantitative VIDAL KAITLIN Start: 08-02-2019 Assay of lactate Vidal Kaitlin Work Phone: Start: 08-02-2019 Assay of troponin quantitative Vdial Kaitlin Work Phone: Start: 08-02-2019 Culture bacterial [...] Screening for malign ant neoplasm of colon [facility] Start: 04-23-2025 Urine screening for protein Diabetes: Urine Protein Screening [facility] Start: 10-01-2024 End: 10-01-2024 Patient encounter procedure 10/01/2024 8:15 AM EST Office Visit [facility] [address] [place] [address] Ming Espinoza DO [address] [place] [address] [facility] Start: 09-14-2024 End: 09-14-2024 Patient encounter procedure 09/14/2024 8:45 AM EST Office Visit [facility] [address] [place], [place] [address] Blake Hinojosa, DO [address] [place] [address] [facility] Start: 08-02-2024 End: 08-02-2024 Patient encounter procedure 08/02/2024 11:00 AM EDT Office Visit [facility] [address] [place] [id number] Blake Hinojosa, DO [address] [place] [address] [facility] Start: 08-02-2024 End: 08-02-2024 Professional / ancillary services management 08/02/2024 10:15 AM EDT Ancillary Procedure [facility] [address] [place] [id number] [facility] Start: 08-02-2024 [facility] Start: 07-24-2024 Hemoglobin A1c measurement Violet betes: Hemoglobin A1C [facility] Start: 06-06-2024 Influenza vaccination Influenza Vacc ine (#1) [facility] Start: 03-16-2024 Bacteria identified in Urine by Culture [facility] Start: 03-15-2024 Bacteria identified in Urine by Culture [facility] Start: 11-06-2023 [facility] Start: 07-16-2023 Screening for malign ant neoplasm of breast Mammogram [facility] Start: 06-18-2022 [facility] Start: 06-18-2022 [facility] Start: 04-01-2022 [facility] Work Phone: Start: 06-06-2019 Influenza vaccination Flu vaccine (# 1) [place], [place] Start: 2015 Lipid screen Lipid screen [place], [place] Start: 1996 Cervical cancer screen Cervical canc er screen [place], [place] Start: 1994 DTaP/Tdap/Td vaccine (1 - Tdap) DTaP/Tdap/Td vaccine (1 - Tdap) [place], [place] Start: 1990 HIV screen HIV screen [place], [place] Start: 1985 Glaucoma screening Diabetes: R etinopathy Screening [facility] Start: 1975 Creatinine monitoring Creatinine mon marie [place] Start: 1975 Potassium monitoring Potassium monit robyn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 sirolimus (rapamycin) [facility] History general Narrative - Reported * Type Description Date Medical History HTN (hypertension) Medical History Anxiety Medical History polycystic kidneys Medical History COVID 05-17-2020 Surgical History C section Surgical History BREAST REDUCTION Hospitalization History child Hospitalization History KIDNEY INFECTION 07/2019 Hospitalization History COVID AND DEHYDRATION [facility] Other 08-12-2020 History general Narrative - Reported* Type Description Date Medical History HTN (hypertension) Medical History Anxiety Medical History polycystic kidneys Medical History COVID 05-17-2020 Medical History end stage renal disease Surgical History C section Surgical History BREAST REDUCTION Surgical History colonoscopy 04/01/2022 Surgical History wisdom teeth 03/24/2022 Hospitalization History child Hospitalization History KIDNEY INFECTION 07/2019 Hospitalization History COVID AND DEHYDRATION [employer] Other 08-12-2020 History general Narrative - Reported* [...] INFECTION 07/2019 Hospitalization History COVID AND DEHYDRATION [employer] Other 08-12-2020 History general Narrative - Reported* [...] INFECTION 07/2019 Hospitalization History COVID AND DEHYDRATION [facility] [employer] Other Evaluation noteNo assessment information available [facility] Work Phone: Evaluation noteNo [facility] Other Evaluation note* Diagnosis Onset Date Resolution Status Dysuria acute UTI (urinary tract infection) acute [facility] Work Phone: Evaluyihys note* Diagnosis Acute non-recurrent pansinusitis- Primary Side effect of medication [facility] Diagnosis Cyst of left ovary- Primary Other and unspecified ovarian cyst Dyspareunia in female documented in this encounter [facility] Assessments Diagnosis Acute sepsis (HCC)- Primary Acute cystitis without hematuria Acute cystitis Chronic renal failure, stage 4 (severe) (HCC) Polycystic kidney disease Polycystic kidney, unspecified type Advance Directives No Advanced Directives Records FoundDocuments on File Type Date Recorded Patient Demo Specialist Expl anation Advance Directives and Living Will Power of Backpackers Manager Advance Directive Response Recorded Date/ Time Advance [...] Heart disease Unknown Unknown sister Hypertension Unknown Relationship Condition Age at Onset Recorded Date/T citlaly family member End-stage renal disease Unknown grandparent Diabetes mellitus Unknown sister Diabetes mellitus Unknown Polycystic kidney disease Unknown Rheumatoid arthritis Unknown Fibromyalgia Unknown father Myocardial infarction Unknown brother Polycystic kidney disease Unknown mother Fibromyalgia Unknown brother Hypertension Unknown father Heart disease Unknown Unknown sister Hypertension Unknown Chief Complaint and Reason for Visit Chief Complaint Screening Screening z01.818 ESRD Chief Complaint Screening Screening z01.818 ESRD ESRD Chief Complaint Screening Screening z.818 ESRD ESRD ESRD Chief Complaint z01.818 ESRD ESRD ESRD left arm pain Z12. Chief Complaint Poss UTI Dysuria Reason for Visit Dysuria UTI (urinary tract infection) Chief Complaint N83.202 ELEVATED ESR Chief Complaint Admit Date N83.202 ELEVATED ESR August 02, 2024 8:39am z12.31 August 25, 2024 3:05pm Additional Source Comments Reason for Visit (unrecogniz ed section and content) Reason Comments Chest Pain was seen at her PCP today and was told her urine has e.coli in it; CP started about 20-30 minutes ago Back Pain Reason Comments URI Reason Comments Follow-up Pt here after in [place] US for left ovarian lesion, 3.[address] 07/02/24. INFORMATION SOURCE (unrecogn ized section and content) DATE CREATED AUTHOR 08/04/2019 [facility] DATE CREATED AUTHOR AUTHOR'S ORGANIZ ATION 04/28/2020 [facility] DATE CREATED AUTHOR AUTHOR'S ORGANIZ ATION 09/12/2020 [facility] DATE CREATED AUTHOR AUTHOR'S ORGANIZ ATION 11/07/2021 [facility] DATE CREATED AUTHOR AUTHOR'S ORGANIZ ATION 02/27/2022 [facility] DATE CREATED AUTHOR AUTHOR'S ORGANIZ ATION 08/04/2022 [facility] DATE CREATED AUTHOR AUTHOR'S ORGANIZ ATION 08/02/2024 [facility] DATE CREATED AUTHOR AUTHOR'S ORGANIZ ATION 08/08/2024 [facility] DATE CREATED AUTHOR AUTHOR'S ORGANIZ ATION 08/28/2024 [facility] Care Teams (unrecognized sec tion [...] March 15, 2024 End: March 15, 2024 Environmental Communications Specialist Relationship Specialty Start Date End Date Ming Espinoza DO [address] [place] [address] PCP - [facility] [employer] 10/06/21 10/05/99 Ming Espinoza DO [address] [place] [address] PCP - General Internal Medicine 05/02/23 Environmental Communications Specialist Relationship Specialty Start Date End Date Ming Espinoza DO [address] [place] [address] PCP - [facility] [employer] 10/06/21 10/05/99 Ming Espinoza DO [address] [place] [address] PCP - General Internal Medicine 05/02/23 Environmental Communications Specialist Relationship Specialty Start Date End Date Ming Espinoza DO [address] [place] [address] PCP - [facility] [employer] 10/06/21 10/05/99 Ming Espinoza DO [address] [place] [address] PCP - General Internal Medicine 05/02/23 Environmental Communications Specialist Relationship Specialty Start Date End Date Ming Espinoza DO [address] [place] [address] PCP - [facility] [employer] 10/06/21 10/05/99 Ming Espinoza DO [address] [place] [address] PCP - General Internal Medicine 05/02/23 Team Status: Inactive Member Role Status Zay Espinoza DO Primary Care Provider Active Start: August 02, 2024 End: August 02, 2024 Jesus Ayala MD Attending Provider Active St art: August 02, 2024 End: August 02, 2024 Blake Hinojosa DO Referring Provider Active Start: August 02, 2024 End: August 02, 2024 Team Status: Inactive Member Role Status Dates Blake Hinojosa DO Attending Provider Active Start: August 25, 2024 End: August 25, 2024 Ming Espinoza DO Primary Care Provider Active Start: August 25, 2024 End: August 25, 2024 Goals (unrecognized section and content) Goals [...] BE BASED ON THE PRIMARY CLINICAL RECORDS. [employer] [facility]. provides no warranty or guarantee of the accuracy or completeness of information in this document.
[2024-08-31 08:09] LABS: Basophils Percent Auto 0.3 % (0.2-2.0); Eosinophils Absolute Auto 0.2 10^3/uL (0.0-0.7); Eosinophils Percent Auto 2.8 % (0.9-7.0); Hematocrit 34.4 % (36.0-48.0); Hemoglobin 10.9 g/dL (12.0-16.0); Immature Granulocytes Abs Auto 0.03 10^3/uL (0.00-0.03); Immature Granulocytes Pct Auto 0.4 % (0.0-0.5); Lymphocytes Absolute Auto 1.2 10^3/uL (1.2-3.8); Lymphocytes Percent Auto 15.4 % (20.5-60.0); Mean Corpuscular HGB Conc 31.7 g/dL (29.9-35.2); Mean Corpuscular Hemoglobin 27.5 pg (26.7-34.0); Mean Corpuscular Volume 86.9 fL (81.0-99.0); Mean Platelet Volume 8.5 fL (9.5-13.5); Monocytes Absolute Auto 0.5 10^3/uL (0.3-0.8); Monocytes Percent Auto 6.2 % (1.7-12.0); Neutrophils Absolute Auto 5.7 10^3/uL (1.4-6.5); Neutrophils Percent Auto 74.9 % (43.0-75.0); Platelet Count 337 10^3/uL (150-450); Red Blood Count 3.96 10^6/uL (4.20-5.40); Red Cell Distribution Width 14.5 % (11.0-15.0); White Blood Count 7.6 10^3/uL (4.0-11.0)
[2024-08-31 09:35] LABS: Alanine Aminotransferase 19 U/L (14-59); Albumin Globulin Ratio 0.8; Albumin Level 3.4 g/dL (3.4-5.0); Alkaline Phosphatase 86 U/L (46-116); Anion Gap 17.2; Aspartate Amino Transferase 11 U/L (15-37); BUN Creatinine Ratio 11.9; Bilirubin Direct 0.1 mg/dL (0.0-0.2); Bilirubin Total 0.4 mg/dL (0.2-1.0); Calcium 9.3 mg/dL (8.5-10.1); Carbon Dioxide 24.6 mmol/L (21.0-32.0); Chloride 104 mmol/L (98-107); Chol HDL Ratio 3.6; Cholesterol 175 mg/dL (<=200); Estimated GFR (African America 51 (>=60 mL/min/1.73m^2); Estimated GFR (Non-African Ame 42 (>=60 mL/min/1.73m^2); Globulin 4.2 g/dL; Glucose 98 mg/dL (74-106); HDL Cholesterol 49 mg/dL (40-60); LDL Cholesterol Calculated 99.6 mg/dL; Magnesium 1.9 mg/dL (1.8-2.4); Phosphorus 3.7 mg/dL (2.6-4.7); Potassium 3.8 mmol/L (3.5-5.1); Sodium 142 mmol/L (136-145); Total Protein 7.6 g/dL (6.4-8.2); Triglycerides 132 mg/dL (<=150); VLDL CHOLESTEROL 26.4 mg/dL
[2024-08-31 10:46] LABS: Estimated Average Glucose 103 mg/dL; Glycohemoglobin A1C 5.2 % (4.5-6.2)
[2024-09-02 14:08] LABS: BKV DNA, Quant PCR, Plasma Negative (Negative)
[2024-09-04 00:07] LABS: Tacrolimus (FK506), Blood 4.6 ng/mL (2.0-20.0)
== END 2024-08-31 07:14 | disposition home or self-care (01) ==
LOC: LAB 07:15
PROVIDERS: PCP Internal Medicine
DX: R73.01 Impaired fasting glucose (principal); Z94.0 Kidney transplant status; E78.5 Hyperlipidemia, unspecified; R60.9 Edema, unspecified
CPT/HCPCS: 36415; 80053; 80061; 80197; 82248; 83036; 83735; 84100; 84550; 85025; 87799

== ENCOUNTER 2024-10-02 07:56 | Outpatient (OUT) | payer OTHER, SELFPAY ==
--- OUTSIDE RECORDS SUMMARY | 2024-10-02 08:02 | XMS_ITS | CCD ---
Author Organization [facility] Care Team Providers Care Web Site Manager Name Role Phone Ming Espinoza Primary Care Provider VIDAL MADRIGAL Attending Unavailable MING ESPINOZA Primary Care Unavailable Toni, Yaneth Unavailable Shabbir Jones Unavailable Dipika Stinson Unavailable Jesus Parham Unavailable DO Ming Espinoza Primary Care Provider [phone] MD Shabbir Jones Attending Provider MD Yaneth Muñoz Attending Provider MD Jesus Parham Attending Provider Estefania Vo Unavailable DO Ming Espinoza Primary Care Provider [phone] EB Forman Emergency Provider DO Blake Hinojosa [...] Attending Unavailable TONI, YANETH Consulting Unavailable DR MICAELA BRINDA Admitting Unavailable ALEXIS, DR ACOSTA Primary Care Unavailable MICAELA, DR PARRY Attending Unavailable MICAELA, DR PARRY Consulting Unavailable MICAELA, DR MORALES Attending Unavailable MICAELA, DR MORALES Admitting Unavailable ALEXIS, DR ACOSTA Primary Care Unavailable ALEXIS, DR ACOSTA Primary Care Unavailable MISC, DR ZARAGOZA Admitting Unavailable MISC, DR ZARAGOZA Attending Unavailable MISC, DR ZARAGOZA Consulting Unavailable TONIYANETH Admitting Unavailable ALEXIS, DR ACOSTA Primary Care Unavailable TONI, YANETH Attending Unavailable TONI, YANETH Consulting Unavailable DO Alexis Ming Primary Care Provider MD Perri Ceja Attending Provider CECILIA Edwards Attending Provider [phone] Ming Espinoza DO Unavailable Ming Espinoza DO Primary Care Provider [phone] DO Alexis Ming Primary Care Provider MD Jesus Ayala Attending Provider DO Blake Hinojosa Referring Provider MUNIRA PHAN Attending Unavailable SREE BLANCHARD Attending Unavailable SREE BLANCHARD Attending Unavailable SUJIT BERNAL Referring Unavailable MUNIRA PHAN Attending Unavailable SREE BLANCHARD Referring Unavailable Alexis NAVA Ming [facility] Care Provider [phone] Jesus Ayala MD Attending Provider Blake Hinojosa DO Referring Provider Blake Hinojosa DO Attending Provider Andreia Edwards Attending Unavailable Andreia Edwards Admitting Unavailable Perri Ceja Admitting Unavailable Ming Espinoza Primary Care Unavailable Perri Ceja Attending Unavailable Blake Hinojosa Referring Unavailable Jesus Ayala Attending Unavailable Jesus Ayala Admitting Unavailable Ming Espinoza Primary Care Unavailable Blake Hinojosa Attending Unavailable Blake Hinojosa Admitting Unavailable Ming Espinoza Primary Care Unavailable MING ESPINOZA Attending Unavailable MING ESPINOZA A Referring Unavailable MING ESPINOZA Referring Unavailable LUCERO HUDSON Attending Unavailable MING ESPINOZA Attending Unavailable MUNIRA PHAN Referring Unavailable BALKE HINOJOSA Attending Unavailable BLAKE HINOJOSA Referring Unavailable MING ESPINOZA Referring Unavailable LUCERO HUDSON Attending Unavailable BLAKE HINOJOSA Attending Unavailable BLAKE HINOJOSA Attending Unavailable Allergies Allergy Classification Reported Allergen(s) Allergy Type Date of Onset Reaction(s) Facility (20 sources) Allopurinol; Translations: [ALLOPURINOL] Drug Allergy 9 hives, Rash [place], [place] (20 sources) venlafaxine; Translations: [VENLAFAXINE] Drug Allergy 2 Rash, Rash, hives [facility] (14 sources) venlafaxine; Translations: [VENLAFAXINE HCL] Drug Allergy 1 [facility] (1 source) Allopurinol Drug Allergy 4 [facility] Repository Medications Current Medications Medication Drug Class(es) Dates Sig (Normalized) Sig (Original) amLODIPine 10 mg oral tablet (16 sources) Dihydropyridine Calcium Channel Eliz Start: 08-21-2023 take 1 tablet by mouth once daily in the morning amLODIPine (Norvasc) 10 MG tablet Indications: Benign essential hypertension (CMS/HCC) TAKE 1 TABLET BY MOUTH EVERY DAY IN THE MORNING 90 tablet 3 06/28/2024 Active amoxicillin 875 mg / clavulanate 125 mg [...] acid 7540 MG / polyethylene glycol 3350 24597 MG / potassium chloride 1200 MG / sodium ascorbate 83858 MG / sodium chloride 3200 MG Powder for Oral Solution) / 1 (polyethylene glycol 3350 114762 MG / potassium chloride 1000 MG / sodium chloride 2000 MG / sodium sulfate 9000 MG Powder for Oral Solution) } Pack [Plenvu] (1 source) Osmotic Laxative, Vitamin C Start: 02-26-2022 Plenvu 140 GM dose 1 pouch at 4pm, dose 2 pouch A & B at 11pm Orally twice a day for 1 days BIN:[id number] PCN: [id number] GROUP:[id number] ID:[id number] February, Active cephalexin 500 mg oral capsule [...] EVERY DAY 90 capsule 2 06/28/2024 Active DULoxetine (Cymb juan) [address] capsule [...] ml insulin detemir 100 unt/ml pen injector (13 sources) Insulin Analog End: 10-01-2024 Levemir FlexPen 100 UNIT/ML pen Inject 12 Units under the skin in the morning. 10/01/2024 Discontinued Iron (9 sources) take 1 tablet by mouth every other day Iron (Ferrous Sulfate) 325 (65 Fe) MG 1 tablet Orally every other day Active magnesium oxide 400 mg oral tablet (17 sources) Start: 03-31-2024 End: 08-02-2024 take 2 tablets by mouth in the morning magnesium oxide (Mag-Ox) 400 MG tablet TAKE 2 TABLETS BY MOUTH IN THE MORNING AND 2 TABLETS AT BEDTIME 03/31/2024 08/02/2024 Discontinued (Duplicate order) Start: 03-15-2024 take 2 tablets by mo [facility] in the morning magnesium oxide (Mag-Ox) 400 (240 Mg) MG tablet TAKE 2 TABLETS BY MOUTH IN THE MORNING AND 2 TABLETS AT BEDTIME 06/22/2024 Active methenamine hippurate 1000 mg oral tablet (7 sources) take 1 tablet by mouth twice daily methenamine hippurate (Hiprex) 1 g tablet TAKE 1 TABLET (1 G) BY MOUTH TWO TIMES DAILY. Active Multivitamin (Multiple Vitamins) tablet (3 sources) Start: 03-15-2024 take 1 tablet by mouth once daily Multivitamin (Multiple Vitamins) tablet Active 1 TAB PO Daily March 14, 2024 11:00pm Start: 03-15-2024 take 1 tablet by denys once daily Multivitamin (Multiple Vitamins) tablet Active [...] acid 180 mg delayed release oral tablet (13 sources) Antimetabolite Immunosuppressant take 4 tablets by mouth in the morning mycophenolate (Myfortic) 180 MG EC tablet Take 4 tablets by mouth in the morning and 4 tablets before bedtime. Active microencapsulated potassium chloride 20 meq extended release oral tablet (13 sources) take 1 tablet by mouth once [...] 12:00am pravastatin sodium 40 mg oral tablet (16 sources) HMG-CoA Reductase Inhibitor Start: 03-15-2024 take [...] MG SUBCUT March 15, 2024 12:00am semaglutide (Ozempic) 4 MG/3ML solution pen-injector (2 sources) Start: 03-23-2024 inject 1 mg by subcutaneous injection every week semaglutide (Ozempic) 4 MG/3ML solution pen-injector Indications: Type 2 diabetes mellitus with other specified complication, without long-term current use of insulin ([facility]) Inject 1 mg under the skin 1 (one) time per week 3 mL 03/23/2024 Active semaglutide (Ozempic, 1 MG/DOSE,) 4 MG/3ML solution pen-injector (11 sources) Start: 06-29-2024 inject 1 mg by subcutaneous injection every week semaglutide (Ozempic, 1 MG/DOSE,) 4 MG/3ML solution pen-injector Indications: Type 2 diabetes mellitus with other specified complication, without long-term current use of insulin ([facility]) INJECT 1 MG UNDER THE SKIN 1 [...] Active 1 TAB PO Twice daily 14 March 14, 2024 11:00pm 24 hr tacrolimus 0.75 mg extended release oral tablet (19 sources) Calcineurin Inhibitor Immunosuppressant Start: 09-06-2024 Envarsus XR 0.75 MG tablet E R 09/06/2024 Active Start: 03-15-2024 Tacrolimus (En varsus Xr) 1 mg tablet extended release 24 hr Active MG PO March 14, 2024 11:00pm tiZANidine 4 mg oral tablet (8 sources) Central alpha-2 Adrenergic Agonist Start: 08-31-2024 take 1 tablet by mouth at bedtime tiZANidine (Zanaflex) 4 MG tablet Take 4 mg by mouth at bedtime 08/31/2024 Active End: 09-14-2024 tiZANidine HCl (ZANAFLEX PO) Take by mouth 09/14/2024 Discontinued tiZANidine HCl ( ZANAFLEX PO) Take by mouth Active Completed/Discontinued Medications Medication Drug Class(es) Dates Sig (Normalized) Sig (Original) acetaminophen 500 mg oral tablet (9 sources) Start: 08-02-2019 End: 08-02-2019 acetaminophen (TYLENOL) tablet 1,000 mg Start: 08-02-2019 take 2 tablets by [facility] once daily as needed for pain Acetaminophen (Tylenol Extra Strength) 500 mg Tablet Active 1000 MG PO Daily as needed for Muscle Pain August 01, 2019 11:00pm calcitriol 0.05269 mg oral capsule (8 sources) Vitamin D3 [...] Ergocalciferol (Vitamin D2) 50,000 unit capsule Discontinued 51793 UNIT PO every month January 19, 2019 [...] pain; Translations: [Pelvic and perineal pain] Onset: 4 Episodic Acute and chronic tonsillitis (20 sources) Amygdalolith; Translations: [Other chronic diseases of tonsils and adenoids] Onset: 4 03-15-2024 Chronic Acute and unspecified renal failure (1 source) Chronic renal failure; Translations: [Chronic renal failure, stage 4 (severe) ([facility])] Chronic Acute and unspecified renal failure (8 sources) Injury of kidney; Translations: [Acute kidney failure, unspecified] 01-19-2019 Episodic Acute myocardial infarction (20 sources) Myocardial infarction; Translations: [Non-ST elevation (NSTEMI) myocardial infarction] Onset: 4 08-03-2019 Chronic Anxiety disorders (20 sources) Anxiety; Translations: [Anxiety disorder, unspecified] Onset: 9 03-15-2024 Chronic Chronic kidney disease (20 sources) Chronic kidney disease stage 4; Translations: [Chronic kidney disease, stage 4 (severe)] Onset: 2 Resolved: 4 Chronic Complications of surgical procedures or medical [...] Resolved: 2 Chronic Deficiency and other anemia (20 sources) Iron deficiency anemia; Translations: [Iron deficiency anemia, unspecified] Onset: 3 03-15-2024 Episodic Diabetes mellitus with complications (15 sources) Chronic kidney disease due to type 2 diabetes mellitus; Translations: [Type 2 diabetes mellitus with diabetic chronic kidney disease] Onset: 3 03-04-2023 Chronic Disorders of lipid metabolism (15 sources) Dyslipidemia; Translations: [Hyperlipidemia, unspecified] Onset: 3 06-10-2023 Chronic Esophageal disorders (13 sources) Gastroesophageal reflux disease; Translations: [Gastro-esophageal reflux disease without esophagitis] Onset: 2 06-10-2023 Chronic Essential hypertension (20 sources) Benign essential hypertension; Translations: [Essential (primary) [...] kidney disease] Onset: 1 Resolved: 2 Chronic Immunizations and screening for infectious disease (2 sources) Needs influenza immunization; Translations: [Encounter for immunization] 10-01-2024 Episodic Intrauterine hypoxia and asphyxia (1 source) Metabolic acidemia, unspecified Episodic Nutritional deficiencies (8 sources) Vitamin D deficiency; Translations: [Vitamin D deficiency, unspecified] 01-20-2019 Chronic Other aftercare (2 sources) Encounter for aftercare following kidney transplant; Translations: [Encounter for aftercare following kidney transplant] Onset: 3 Chronic Other aftercare (15 sources) Transplant follow-up; Translations: [Other exterminator helper termite (current) drug therapy] Onset: 3 06-10-2023 Episodic Other circulatory disease (7 sources) Acquired arteriovenous fistula aneurysm; Translations: [Arteriovenous fistula, acquired] Chronic Other circulatory disease (1 source) Ecchymosis; Translations: [Hemorrhage, not elsewhere classified] 06-20-2022 Episodic Other circulatory disease (4 sources) Hemorrhage, not elsewhere classified; Translations: [Postoperative ecchymosis] 06-20-2022 Episodic Other connective tissue disease (5 sources) Pain in left arm; Translations: [Pain in left arm] 06-20-2022 Episodic Other connective tissue disease (15 sources) Fibromyalgia; Translations: [Fibromyalgia] Onset: 3 03-04-2023 Episodic Other diseases of kidney and ureters [...] unspecified] 08-04-2019 Episodic Other non-traumatic joint disorders (13 sources) Polyarthropathy; Translations: [Polyarthritis, unspecified] Onset: 3 06-10-2023 Chronic Other screening for suspected conditions (not mental disorders or infectious disease) (2 sources) Encounter for screening for malignant neoplasm of colon; Translations: [Encounter for screening mammogram for malignant neoplasm of breast] Onset: 2 Resolved: 2 Episodic Other upper respiratory infections (2 sources) Acute pansinusitis; Translations: [Acute pansinusitis, unspecified] 07-27-2024 Episodic Ovarian cyst (6 sources) Unspecified ovarian cyst, left side; Translations: [Cyst of left ovary] Onset: 2 Episodic Residual codes; unclassified (13 sources) Obstructive sleep apnea syndrome; Translations: [Obstructive [...] Da te Episodic/Chronic Diabetes mellitus without complication (15 sources) Impaired fasting glycemia; Translations: [Impaired fasting glucose] Onset: 03-04-2023 Resolved: 03-13-2023 03-13-2023 Episodic Fluid and electrolyte disorders (3 sources) Acidosis; Translations: [ACIDOSIS] Onset: 12-06-2021 Resolved: 05-02-2022 Episodic Genitourinary symptoms and ill-defined conditions (12 sources) Dysuria; Translations: [Dysuria] Onset: 03-15-2024 01-19-2019 Episodic Other non-traumatic joint disorders (1 source) Pain in unspecified joint; Translations: [Pain in unspecified joint] Onset: 11-06-2023 Episodic Other nutritional; endocrine; and metabolic disorders (20 sources) Hyperuricemia; Translations: [Hyperuricemia without signs of inflammatory arthritis and tophaceous disease] Onset: 03-04-2023 Resolved: 03-13-2023 01-19-2019 Episodic Otitis media and related conditions (1 source) Otitis media, unspecified, bilateral Onset: 04-30-2022 Resolved: 04-30-2022 Episodic Results Test Name Value Interpretation Reference Range Facility ALL CBC WITH AUTO DIFFon BASOPHILS ABSOLUTE AUTO 0 [facility] Basophils/100 WBC (Bld) 0.3 % 0.2 - 2.0 % [facility] Eosinophils/100 WBC (Bld) 2.8 % 0.9 - 7.0 % [facility] Erythrocyte distribution width (RBC) [Ratio] 14.5 % 11.0 - 15.0 % [facility] Hematocrit (Bld) [Volume fraction] 34.4 % Low 36.0 - 48.0 % [facility] Hemoglobin (Bld) [Mass/Vol] 10.9 g/dL Low 12.0 - 16.0 g/dL [facility] IMMATURE GRANULOCYTES ABS AUTO 0.03 [facility] Immature granulocytes/100 WBC (Bld) 0.4 % 0.0 - 0.5 % [facility] Interpretation and review of laboratory results Abnormal [facility] LYMPHOCYTES ABSOLUTE AUTO 1.2 [facility] Lymphocytes/100 WBC (Bld) 15.4 % Low 20.5 - 60.0 % [facility] MCH (RBC) [Entitic mass] 27.5 pg 26.7 - 34.0 pg [facility] MCHC (RBC) [Mass/Vol] 31.7 g/dL 29.9 - 35.2 g/dL [facility] MCV (RBC) [Entitic vol] 86.9 fL 81.0 - 99.0 fL [facility] MONOCYTES ABSOLUTE AUTO 0.5 [facility] Monocytes/100 WBC (Bld) 6.2 % 1.7 - 12.0 % [facility] NEUTROPHILS ABSOLUTE AUTO 5.7 [facility] Neutrophils/100 WBC (Bld) 74.9 % 43.0 - 75.0 % [facility] Platelet mean volume (Bld) [Entitic vol] 8.5 fL Low 9.5 - 13.5 fL [facility] TBH EO # 0.2 [facility] TBH PLT 337 [facility] TB RBC 3.96 Low [facility] TB WBC 7.6 [facility] ALL LIPID PROFILE (FASTING)o n 08-31-2024 CHOL HDL RATIO 3.6 [facility] Comment on above: 3.3 - 4.4 LOW RISK 4.4 - 7.1 AVERAGE RISK 7.1 - 11.0 MODERATE RISK >11.0 HIGH RISK Cholesterol [Mass/Vol] 175 mg/dL NINF - 200 mg/dL [facility] Cholesterol in HDL [Mass/Vol] 49 mg/dL 40 - 60 mg/dL [facility] Comment on above: > or =60 mg/dl - LOW CARDIOVASCULAR RISK <40 mg/dl - HIGH CARDIOVASCULAR RISK Magnesium [Mass/Vol] 99.6 mg/dL [facility] Comment on above: <100 mg/dl OPTIMAL 100-129 mg/dl NEAR OR ABOVE OPTIMAL 130-159 mg/dl BORDERLINE HIGH 160-189 mg/dl HIGH >190 mg/dl VERY HIGH Magnesium [Mass/Vol] 26.4 mg/dL [facility] Triglyceride [Mass/Vol] 132 mg/dL NINF - 150 mg/dL [facility] ALL MAGNESIUMon 08-31-2024 Magnesium [Mass/Vol] 1.9 mg/dL 1.8 - 2 .4 mg/dL [facility] ALL PHOSPHOROUSon 08-31-2024 Phosphate [Mass/Vol] 3.7 mg/dL 2.6 - 4 .7 mg/dL [facility] ALL URIC ACIDon 08-31-2024 Urate [Mass/Vol] 4 mg/dL 2.6 - 6.0 mg/dL [facility] CCF CMP (CMP) (FOR REMOTE FH C USE)on 08-31-2024 Albumin [Mass/Vol] 3.4 g/dL 3.4 - 5.0 g/dL [facility] ALBUMIN GLOBULIN RATIO 0.8 [facility] ALP [Catalytic activity/Vol] 86 U/L 46 - 116 U/L [facility] ALT [Catalytic activity/Vol] 19 U/L 14 - 59 U/L [facility] Anion gap [Moles/Vol] 17.2 mmol/L NO [facility] AST [Catalytic activity/Vol] 11 U/L Low 15 - 37 U/L [facility] Bilirubin [Mass/Vol] 0.4 mg/dL 0.2 - 1 .0 mg/dL [facility] Calcium [Mass/Vol] 9.3 mg/dL 8.5 - 10. 1 mg/dL [facility] Chloride [Moles/Vol] 104 mmol/L 98 - 10 7 mmol/L [facility] CO2 [Moles/Vol] 24.6 mmol/L 21.0 - 32.0 mmol/L [facility] Creatinine [Mass/Vol] 1.34 mg/dL High 0.55 - 1.02 mg/dL [facility] GFR/1.73 sq M.predicted CKD-EPI (S/P/Bld) [Vol rate/Area] 51 Low >=60 mL/min/1.73m 2 [facility] Globulin (S) [Mass/Vol] 4.2 g/dL [facility] Glucose [Mass/Vol] 98 mg/dL 74 - 106 mg/dL [facility] Interpretation and review of laboratory results Abnormal [facility] Potassium [Moles/Vol] 3.8 mmol/L 3.5 - 5.1 mmol/L [facility] Protein [Mass/Vol] 7.6 g/dL 6.4 - 8.2 g/dL [facility] Sodium [Moles/Vol] 142 mmol/L 136 - 145 mmol/L [facility] TBH EGFR-NON AF FRENCH 42 Low >=60 mL/min/1.73m 2 [facility] Urea nitrogen [Mass/Vol] 16 mg/dL 7.0 - 18.0 mg/dL [facility] Urea nitrogen/Creatinine [Mass ratio] 11.9 mg/mg [facility] METRO BILIRUBIN, DIRECTon Bilirubin.indirect [Mass/Vol] 0.1 mg/dL 0.0 - 0.2 mg/dL [facility] MLR HEMOGLOBIN A1Con 024 Glucose [Mass/Vol] 103 mg/dL [facility] HbA1c (Bld) [Mass fraction] 5.2 % 4.5 - 6.2 % [facility] Comment on above: ADA RECOMMENDED LIMI T 4.0 - 6.0 ADA THERAPEUTIC TARGET < 7.0 ACTION SUGGESTED > 7.[facility] Panel Informationon 08-31 [facility] MM screening mammo BI w/CADo n 08-25-2024 MM screening mammo BI w/CAD [facility] [place] [address] Mammography Report Signed Patient: Mandeep Puri MR#: [id number] : 1975 Acct:[id number] Age/Sex: 48 / F ADM Date: 08/25/24 Loc: [place] Room: Type: [facility] Attending Dr: Blake Hinojosa DO Copies to: Ming A AlexisDO Blake peralta DO Ordering Provider: Blake Hinojosa DO Date [...] Messina Jr., D.OSon08/25/2024 3:24 PM Dictation Location: [facility] Transcribed By: [facility] 08/25/24 1524 Dictated By: Evan Messina Jr, DO 08/25/24 1523 Signed By: 08/25/24 1524 Normal [facility] Mammography reportOrdered By : Evan Messina on 08-25-2024 Diagnostic imaging study [facility] [place] [address] Mammography Report Signed Patient: Mandeep Puri MR#: [id number] : 1975 Acct:[id number] Age/Sex: 48 / F ADM Date: 4 Loc: [place] Room: Type: [facility] Attending Dr: Blake Hinojosa DO Copies [...] Messina Jr., D.O.08/25/2024 3:24 PM Dictation Location: [facility] Transcribed By: [facility] 08/25/24 1524 Dictated By: Evan Messina Jr, DO 08/25/24 1523 Signed By: 08/25/24 1524 [facility] [place] 125on 08-03-2024 CANCER ANTIGEN 125 12.9 0.0 - 38.1 [facility] Comment on above: [facility] El ectrochemiluminescence Immunoassay (ECLIA) Values obtained with different assay methods or kits cannot be used interchangeably. Results cannot be interpreted as absolute evidence of the presence or absence of malignant disease. Performed at: [address] [id number] [employer]: Gabriel Whitman PhD, Phone: [phone] [facility] 24 hour urine albumin/total protein ratio by electrophoresisOrdered By: Jesus Ayala on 08-02-2024 Albumin Elph (24H U) [Mass fraction] Albumin/Protein.total in 24 hour Urine by Electrophoresis . [facility] 24 hour urine gamma globulin /total protein ratio by electrophoresisOrdered By: Jesus Ayala on 08-02-2024 Gamma globulin Elph (24H U) [Mass fraction] Gamma globulin/Protein.total in 24 hour Urine by Electrophoresis . [facility] 24 hour urine protein monocl onal/total protein by electrophoresisOrdered By: Jesushelio Ayala on 08-02-2024 Protein.monoclonal Elph (24H U) [Mass fraction] Protein.monoclonal/Prote in.total in 24 hour Urine by Electrophoresis Not Observed [facility] Alanine aminotransferase [En zymatic activity/volume] in Serum or PlasmaOrdered By: Jesus Ayala on 08-02-2024 ALT [Catalytic activity/Vol] 11 U/L Normal [facility] Comment on above: Performed By: #### U PE RAND, CAMILLA,URINE, ALDOLASE, SPE, CAMILLA SERUM #### [facility] , #### ADDONUAPLUS, T4F, ESR, CMP, CK, CBC, CRP, TSH3 #### [address] ALT [Catalytic activity/Vol] Alanine aminotransferase [Enzymatic activity/volume] in Serum or Plasma [facility] Albumin [Mass/volume] in Ser um or Plasma by Bromocresol green (BCG) dye binding methoOrdered By: Jesus Ayala on 08-02-2024 Albumin BCG dye [Mass/Vol] 4.3 g/dL 3.5-5.7 [facility] Albumin BCG dye [Mass/Vol] Albumin [Mass/volume] in Serum or Plasma by Bromocresol green (BCG) dye binding metho 3.5-5.7 [facility] Aldolaseon 08-02-2024 Aldolase 3.5 U/L Normal 3.3-10.3 [facility] Comment on above: Result Comment: Perf ormed at: CB - [facility] [address] [id number] [employer]: Gabriel Whitman PhD, Phone: [phone] PERFORMED BY: [place] [address] PATHOLOGIST COST CONTROLLER ANAHY MCKEE M.D. Performed By: #### U PE RAND, CAMILLA,URINE, ALDOLASE, SPE, CAMILLA SERUM ####[facility] ,#### ADDONUAPLUS, T4F, ESR, CMP, CK, CBC, CRP, TSH3 ####[facility] [address] [place] [address] [place] Alkaline phosphatase [Enzyma tic activity/volume] in Serum or PlasmaOrdered By: Jesus Ayala on 08-02-2024 ALP [Catalytic activity/Vol] 87 U/L Normal [facility] Comment on above: Performed By: #### U PE RAND, CAMILLA,URINE, ALDOLASE, SPE, CAMILLA SERUM #### [facility] , #### ADDONUAPLUS, T4F, ESR, CMP, CK, CBC, CRP, TSH3 #### [facility] [address] [place] [address] [place] ALP [Catalytic activity/Vol] Alkaline phosphatase [Enzymatic activity/volume] in Serum or Plasma [facility] Appearance of UrineOrdered B y: Jesus Ayala on 08-02-2024 Appearance (U) Urine appearance Clear [facility] Aspartate aminotransferase [ Enzymatic activity/volume] in Serum or PlasmaOrdered By: Jesus Ayala on 08-02-2024 AST [Catalytic activity/Vol] 13 U/L Normal [facility] Comment on above: Performed By: #### U PE RAND, CAMILLA,URINE, ALDOLASE, SPE, CAMILLA SERUM #### [facility] , #### ADDONUAPLUS, T4F, ESR, CMP, CK, CBC, CRP, TSH3 #### [facility] [address] [place] [address] [place] AST [Catalytic activity/Vol] Aspartate aminotransferase [Enzymatic activity/volume] in Serum or Plasma [facility] Automated basophil %Ordered By: Jesus Ayala on 08-02-2024 Basophils/100 WBC (Bld) 0.6 % Normal . [facility] Comment on above: Performed By: #### U PE RAND, CAMILLA,URINE, ALDOLASE, SPE, CAMILLA SERUM #### [facility] , #### ADDONUAPLUS, T4F, ESR, CMP, CK, CBC, CRP, TSH3 #### [facility] [address] [place] [address] Automated basophil countOrde red By: Jesus Ayala on 08-02-2024 Basophils (Bld) [#/Vol] 0.0 10*3/uL Normal 0.0-0.2 [facility] Comment on above: Performed By: #### U PE RAND, CAMILLA,URINE, ALDOLASE, SPE, CAMLILA SERUM #### [facility] , #### ADDONUAPLUS, T4F, ESR, CMP, CK, CBC, CRP, TSH3 #### [facility] [address] [place] [address] Automated blood monocyte cou ntOrdered By: Jesus Ayala on 08-02-2024 Monocytes (Bld) [#/Vol] 0.4 10*3/uL Normal 0.0-0.8 [facility] Comment on above: Performed By: #### U PE RAND, CAMILLA,URINE, ALDOLASE, SPE, CAMILLA SERUM #### [facility] , #### ADDONUAPLUS, T4F, ESR, CMP, CK, CBC, CRP, TSH3 #### [facility] [address] [place] [address] Automated eosinophil %Ordere d By: Jesus Ayala on 08-02-2024 Eosinophils/100 WBC (Bld) 3.0 % Normal . [facility] Comment on above: Performed By: #### U PE RAND, CAMILLA,URINE, ALDOLASE, SPE, CAMILLA SERUM #### [facility] , #### ADDONUAPLUS, T4F, ESR, CMP, CK, CBC, CRP, TSH3 #### [facility] [address] [place] [address] Automated eosinophil countOr dered By: Jesus Ayala on 08-02-2024 Eosinophils (Bld) [#/Vol] 0.2 10*3/uL Normal 0.0-0.45 [facility] Comment on above: Performed By: #### U PE RAND, CAMILLA,URINE, ALDOLASE, SPE, CAMILLA SERUM #### [facility] , #### ADDONUAPLUS, T4F, ESR, CMP, CK, CBC, CRP, TSH3 #### [facility] [address] Automated epithelial cells c ount in urine sediment (number/area)Ordered By: Jesus Ayala on 08-02-2024 Epithelial cells Auto (Urine sed) [#/Area] 5-9 [HPF] High 0-2 [facility] Epithelial cells Auto (Urine sed) [#/Area] Automated epithelial cells count in urine sediment (number/area) High 0-2 [facility] Automated erythrocytes count in urine sediment (number/area)Ordered By: Jesus Ayala on 08-02-2024 RBC Auto (Urine sed) [#/Area] Erythrocytes [#/area] in Urine sediment by Automated count 0-4 [facility] Automated leukocytes count i n urine sediment (number/area)Ordered By: Jesus Ayala on 08-02-2024 WBC Auto (Urine sed) [#/Area] Leukocytes [#/area] in Urine sediment by Automated count 0-4 [facility] Automated monocyte %Ordered By: Jesus Ayala on 08-02-2024 Monocytes/100 WBC (Bld) 4.5 % Normal . [facility] Comment on above: Performed By: #### U PE RAND, CAMILLA,URINE, ALDOLASE, SPE, CAMILLA SERUM #### [facility] , #### ADDONUAPLUS, T4F, ESR, CMP, CK, CBC, CRP, TSH3 #### [address] Automated neutrophil %Ordere d By: Jesus Ayala on 08-02-2024 Neutrophils/100 WBC (Bld) 76.9 % Normal . [facility] Comment on above: Performed By: #### U PE RAND, CAMILLA,URINE, ALDOLASE, SPE, CAMILLA SERUM #### [facility] , #### ADDONUAPLUS, T4F, ESR, CMP, CK, CBC, CRP, TSH3 #### [address] Bacteria [Presence] in Urine by AutomatedOrdered By: Jesus Ayala on 08-02-2024 Bacteria Auto Ql (U) None seen [HPF] None Seen [facility] Basophils Auto (Bld) [#/Vol] Ordered By: Jesus Jamie on 08-02-2024 Basophils (Bld) [#/Vol] Automated basophil count 0.0-0.2 [facility] Basophils/100 WBC Auto (Bld) Ordered By: Jesus Ayala on 08-02-2024 Basophils/100 WBC (Bld) Automated basophil % . [facility] Bilirubin Test strip Ql (U)O rdered By: Jesus Ayala on 08-02-2024 Bilirubin Ql (U) Negative Negative [facility] Bilirubin Ql (U) Bilirubin.total [Presence] in Urine by Test strip Negative [facility] Bilirubin.total [Mass/volume ] in Serum or PlasmaOrdered By: Jesus Ayala on 08-02-2024 Bilirubin [Mass/Vol] 0.3 mg/dL Normal 0.3-1.0 [facility] Comment on above: Performed By: #### U PE RAND, CAMILLA,URINE, ALDOLASE, SPE, CAMILLA SERUM #### [facility] , #### ADDONUAPLUS, T4F, ESR, CMP, CK, CBC, CRP, TSH3 #### [address] Bilirubin [Mass/Vol] Bilirubin.total [Mass/volume] in Serum or Plasma 0.3-1.0 [facility] C reactive protein [Mass/vol ume] in Serum or PlasmaOrdered By: Jesus Ayala on 08-02-2024 CRP [Mass/Vol] 1.7 mg/dL High 0.0-0.5 [facility] CRP [Mass/Vol] C reactive protein [Mass/volume] in Serum or Plasma High 0.0-0.5 [facility] C-Reactive Proteinon 024 C-Reactive Protein 1.7 mg/dL High 0.0-0.5 [facility] Comment on above: Performed By: #### U PE RAND, CAMILLA,URINE, ALDOLASE, SPE, CAMILLA SERUM #### [facility] , #### ADDONUAPLUS, T4F, ESR, CMP, CK, CBC, CRP, TSH3 #### [facility] [address] [place] [address] CARCINOEMBRYONIC ANTIGENon 1 [facility] CEA ser/plasOrdered By: Gustavo Hinojosa on 08-02-2024 Carcinoembryonic Ag [Mass/Vol] Serum or plasma carcinoembryonic antigen measurement (mass/volume) 0.0-3.0 [facility] Comment on above: Serial tumor marker results determined by assays using different manufacturers or methods may not be comparable.[facility] polysomnography technologist and method:[employer] DXI, 2 SITE IMMUNOENZYMATIC SANDWICH ASSAY. Calcium [Mass/volume] in Ser um or PlasmaOrdered By: Jesus Ayala on 08-02-2024 Calcium [Mass/Vol] 9.8 mg/dL Normal 8.6-10.3 [facility] Comment on above: Performed By: #### U PE RAND, CAMILLA,URINE, ALDOLASE, SPE, CAMILLA SERUM #### [facility] , #### ADDONUAPLUS, T4F, ESR, CMP, CK, CBC, CRP, TSH3 #### [facility] [address] [place] [address] Calcium [Mass/Vol] Calcium [Mass/volume ] in Serum or Plasma 8.6-10.3 [facility] Cancer Antigen 125on 024 Cancer Antigen 125 12.9 Normal 0.0-38.1 [facility] Comment on above: Result Comment: [employer] Electrochemiluminescence Immunoassay (ECLIA) Values obtained with different assay methods or kits cannot be used interchangeably. Results cannot be interpreted as absolute evidence of the presence or absence of malignant disease. Performed at: [facility] [employer] [id number] [employer]: Gabriel Whitman PhD, Phone: [phone] PERFORMED BY: [place] [address] PATHOLOGIST COST CONTROLLER ANAHY MCKEE M.D. Performed By: #### C A125 ####[facility] ,#### CEA ####[facility] [place] [address] [place] Carbon dioxide, total [Moles /volume] in Serum or PlasmaOrdered By: Jesus Jamie on 08-02-2024 CO2 [Moles/Vol] 24.6 mmol/L Normal 21.0-31.0 [facility] Comment on above: Performed By: #### U PE RAND, CAMILLA,URINE, ALDOLASE, SPE, CAMILLA SERUM #### [facility] , #### ADDONUAPLUS, T4F, ESR, CMP, CK, CBC, CRP, TSH3 #### [facility] [address] [place] [address] [place] CO2 [Moles/Vol] Carbon dioxide, tota l [Moles/volume] in Serum or Plasma 21.0-31.0 [facility] Chloride [Moles/volume] in S aislinn or PlasmaOrdered By: Jesus Ayala on 08-02-2024 Chloride [Moles/Vol] 105 mmol/L Normal 98-107 [facility] Comment on above: Performed By: #### U PE RAND, CAMILLA,URINE, ALDOLASE, SPE, CAMILLA SERUM #### [facility] , #### ADDONUAPLUS, T4F, ESR, CMP, CK, CBC, CRP, TSH3 #### [facility] [address] [place] [address] [place] Chloride [Moles/Vol] Chloride [Moles/vol ume] in Serum or Plasma 98-107 [facility] Color Auto (U)Ordered By: Chan Ayala on 08-02-2024 Color (U) Color of Urine by Auto Yellow [facility] Color of Urine by AutoOrdere d By: Jesushelio Aayla on 08-02-2024 Color (U) Light-yellow Normal Yellow [facility] Comment on above: Order Comment: Name Collection Type:: Clean-Voided Midstream Performed By: #### U PE RAND, CAMILLA,URINE, ALDOLASE, SPE, CAMILLA SERUM #### [facility] , #### ADDONUAPLUS, T4F, ESR, CMP, CK, CBC, CRP, TSH3 #### [address] Complete Blood Count Auto Di ffon 08-02-2024 Mean Corpuscular HGB Conc 33.5 g/dL Normal 32.0-35.0 [facility] Comment on above: Performed By: #### U PE RAND, CAMILLA,URINE, ALDOLASE, SPE, CAMILLA SERUM #### [facility] , #### ADDONUAPLUS, T4F, ESR, CMP, CK, CBC, CRP, TSH3 #### [address] NRBC% 0.1 /100{WBC} Normal 0-0.5 [facility] Comment on above: Performed By: #### U PE RAND, CAMILLA,URINE, ALDOLASE, SPE, CAMILLA SERUM #### [facility] , #### ADDONUAPLUS, T4F, ESR, CMP, CK, CBC, CRP, TSH3 #### [address] Comprehensive Metabolic Pane [facility] 08-02-2024 Albumin [Mass/Vol] 4.3 g/dL Normal 3.5-5.7 [facility] Comment on above: Performed By: #### U PE RAND, CAMILLA,URINE, ALDOLASE, SPE, CAMILLA SERUM #### [facility] , #### ADDONUAPLUS, T4F, ESR, CMP, CK, CBC, CRP, TSH3 #### [address] GFR/1.73 sq M.predicted MDRD (S/P/Bld) [Vol rate/Area] mL/min/{1.73_m2} Normal [facility] Comment on above: Performed By: #### U PE RAND, CAMILLA,URINE, ALDOLASE, SPE, CAMILLA SERUM #### [facility] , #### ADDONUAPLUS, T4F, ESR, CMP, CK, CBC, CRP, TSH3 #### [facility] [address] [place] [address] [place] Creatine kinase [Enzymatic a ctivity/volume] in Serum or PlasmaOrdered By: Jesus Ayala on 08-02-2024 CK [Catalytic activity/Vol] 39 U/L Normal [facility] Comment on above: Result Comment: PERF ORMED BY: [place] [address] PATHOLOGIST COST CONTROLLER ANAHY MCKEE M.D. Performed By: #### U PE RAND, CAMILLA,URINE, ALDOLASE, SPE, CAMILLA SERUM #### [facility] , #### ADDONUAPLUS, T4F, ESR, CMP, CK, CBC, CRP, TSH3 #### [facility] [address] [place] [address] [place] CK [Catalytic activity/Vol] Creatine kinase [Enzymatic activity/volume] in Serum or Plasma [facility] Creatinine [Mass/volume] in Serum or PlasmaOrdered By: Jesus Ayala on 08-02-2024 Creatinine [Mass/Vol] 1.10 mg/dL Normal 0.60-1.20 [facility] Comment on above: Performed By: #### U PE RAND, CAMILLA,URINE, ALDOLASE, SPE, CAMILLA SERUM #### [facility] , #### ADDONUAPLUS, T4F, ESR, CMP, CK, CBC, CRP, TSH3 #### [facility] [address] [place] [address] [place] Creatinine [Mass/Vol] Creatinine [Mass/v olume] in Serum or Plasma 0.60-1.20 [facility] Dipstick and Microscopicon 1 Bacteria,Urine None Seen Normal None Seen [facility] Comment on above: Order Comment: Name Collection Type:: Clean-Voided Midstream Performed By: #### U PE RAND, CAMILLA,URINE, ALDOLASE, SPE, CAMILLA SERUM #### [facility] , #### ADDONUAPLUS, T4F, ESR, CMP, CK, CBC, CRP, TSH3 #### [facility] [address] [place] [address] Bilirubin,Urine Negative Normal Negative [facility] Comment on above: Order Comment: Name Collection Type:: Clean-Voided Midstream Performed By: #### U PE RAND, CAMILLA,URINE, ALDOLASE, SPE, CAMILLA SERUM #### [facility] , #### ADDONUAPLUS, T4F, ESR, CMP, CK, CBC, CRP, TSH3 #### [address] Glucose Ql (U) 50 mg/dL High Normal [facility] Comment on above: Order Comment: Name Collection Type:: Clean-Voided Midstream Performed By: #### U PE RAND, CAMILLA,URINE, ALDOLASE, SPE, CAMILLA SERUM #### [facility] , #### ADDONUAPLUS, T4F, ESR, CMP, CK, CBC, CRP, TSH3 #### [address] Hyaline Casts,Urine 0-8 Normal 0-8 [facility] Comment on above: Order Comment: Name Collection Type:: Clean-Voided Midstream Result Comment: PERF ORMED BY: [place] [address] PATHOLOGIST COST CONTROLLER ANAHY MCKEE M.D. Performed By: #### U PE RAND, CAMILLA,URINE, ALDOLASE, SPE, CAMILLA SERUM #### [facility] , #### ADDONUAPLUS, T4F, ESR, CMP, CK, CBC, CRP, TSH3 #### [facility] [address] [place] [address] Nitrite,Urine Negative Normal Negative [facility] Comment on above: Order Comment: Name Collection Type:: Clean-Voided Midstream Performed By: #### U PE RAND, CAMILLA,URINE, ALDOLASE, SPE, CAMILLA SERUM #### [facility] , #### ADDONUAPLUS, T4F, ESR, CMP, CK, CBC, CRP, TSH3 #### [facility] [address] [place] [address] Occult Blood,Urine Negative Normal Negative [facility] Comment on above: Order Comment: Name Collection Type:: Clean-Voided Midstream Performed By: #### U PE RAND, CAMILLA,URINE, ALDOLASE, SPE, CAMILLA SERUM #### [facility] , #### ADDONUAPLUS, T4F, ESR, CMP, CK, CBC, CRP, TSH3 #### [facility] [address] [place] [address] Protein,Urine Negative Normal Negative [facility] Comment on above: Order Comment: Name Collection Type:: Clean-Voided Midstream Performed By: #### U PE RAND, CAMILLA,URINE, ALDOLASE, SPE, CAMILLA SERUM #### [facility] , #### ADDONUAPLUS, T4F, ESR, CMP, CK, CBC, CRP, TSH3 #### [address] RBC,Urine 3-4 Normal 0-4 [facility] Comment on above: Order Comment: Name Collection Type:: Clean-Voided Midstream Performed By: #### U PE RAND, CAMILLA,URINE, ALDOLASE, SPE, CAMILLA SERUM #### [facility] , #### ADDONUAPLUS, T4F, ESR, CMP, CK, CBC, CRP, TSH3 #### [facility] [address] [place] [address] Specificy [place],Urine 1.013 Normal 1.001-1.030 [facility] Comment on above: Order Comment: Name Collection Type:: Clean-Voided Midstream Performed By: #### U PE RAND, CAMILLA,URINE, ALDOLASE, SPE, CAMILLA SERUM #### [facility] , #### ADDONUAPLUS, T4F, ESR, CMP, CK, CBC, CRP, TSH3 #### [address] Squamous Epithelial Cell,Urine 5-9 High 0-2 [facility] Comment on above: Order Comment: Name Collection Type:: Clean-Voided Midstream Performed By: #### U PE RAND, CAMILLA,URINE, ALDOLASE, SPE, CAMILLA SERUM #### [facility] , #### ADDONUAPLUS, T4F, ESR, CMP, CK, CBC, CRP, TSH3 #### [address] Urobilinogen,Urine Normal Normal Normal [facility] Comment on above: Order Comment: Name Collection Type:: Clean-Voided Midstream Performed By: #### U PE RAND, CAMILLA,URINE, ALDOLASE, SPE, CAMILLA SERUM #### [facility] , #### ADDONUAPLUS, T4F, ESR, CMP, CK, CBC, CRP, TSH3 #### [address] WBC,Urine 3-4 Normal 0-4 [facility] Comment on above: Order Comment: Name Collection Type:: Clean-Voided Midstream Performed By: #### U PE RAND, CAMILLA,URINE, ALDOLASE, SPE, CAMILLA SERUM #### [facility] , #### ADDONUAPLUS, T4F, ESR, CMP, CK, CBC, CRP, TSH3 #### [address] Eosinophils Auto (Bld) [#/Vo l]Ordered By: Jesus Ayala on 08-02-2024 Eosinophils (Bld) [#/Vol] Automated eosinophil count 0.0-0.45 [facility] Eosinophils/100 WBC Auto (Bl d)Ordered By: Jesus Ayala on 08-02-2024 Eosinophils/100 WBC (Bld) Automated eosinophil % . [facility] Erythrocyte Sedimentation Ra mathieu 08-02-2024 ESR (Bld) [Velocity] 73 mm/h High 0-19 [facility] Comment on above: Result Comment: PERF ORMED BY: [place] [address] PATHOLOGIST COST CONTROLLER ANAHY MCKEE M.D. Performed By: #### U PE RAND, CAMILLA,URINE, ALDOLASE, SPE, CAMILLA SERUM ####[facility] ,#### ADDONUAPLUS, T4F, ESR, CMP, CK, CBC, CRP, TSH3 ####[facility] [id number] Erythrocyte distribution wid th Auto (RBC) [Ratio]Ordered By: Jesus Ayala on 08-02-2024 Erythrocyte distribution width (RBC) [Ratio] Erythrocyte distribution width [Ratio] by Automated count High 11.9-15.3 [facility] Erythrocyte distribution wid th [Ratio] by Automated countOrdered By: Jesus Ayala on 08-02-2024 Erythrocyte distribution width (RBC) [Ratio] 15.7 % High 11.9-15.3 [facility] Comment on above: Performed By: #### U PE RAND, CAMILLA,URINE, ALDOLASE, SPE, CAMILLA SERUM #### [facility] , #### ADDONUAPLUS, T4F, ESR, CMP, CK, CBC, CRP, TSH3 #### [facility] [address] Erythrocyte sedimentation ra te by Photometric methodOrdered By: Jesus Ayala on 08-02-2024 ESR Photometric method (Bld) [Velocity] 73 mm/hr High 0-19 [facility] ESR Photometric method (Bld) [Velocity] Erythrocyte sedimentation rate by Photometric method High 0-19 [facility] Erythrocytes [#/area] in Uri ne sediment by Automated countOrdered By: Jesus Ayala on 08-02-2024 RBC Auto (Urine sed) [#/Area] 3-4 [HPF] 0-4 [facility] Erythrocytes [#/volume] in B lood by Automated countOrdered By: Jesus Ayala on 08-02-2024 RBC (Bld) [#/Vol] 4.37 10*6/uL Normal 3.60-5.00 [facility] Comment on above: Performed By: #### U PE RAND, CAMILLA,URINE, ALDOLASE, SPE, CAMILLA SERUM #### [facility] , #### ADDONUAPLUS, T4F, ESR, CMP, CK, CBC, CRP, TSH3 #### [facility] [address] Globulin Calc (S) [Mass/Vol] Ordered By: Jesus Ayala on 08-02-2024 Globulin (S) [Mass/Vol] Serum globulin measurement by calculation (mass/volume) [facility] Glucose [Mass/volume] in Ser um or PlasmaOrdered By: Jesus Ayala on 08-02-2024 Glucose [Mass/Vol] 146 mg/dL High 70-100 [facility] Comment on above: ADA recommended refe rence rangeRandom Glucose Reference Range is dependent on time and content of last meal. Glucose of more than 200 mg/dL in a nonstressed, ambulatory subject supports the diagnosis of Diabetes Mellitus. Result Comment: Melba om Glucose Reference Range is dependent on time and content of last meal. Glucose of more than 200 mg/dL in a nonstressed, ambulatory subject supports the diagnosis of Diabetes Mellitus. ADA recommended reference range Performed By: #### U PE RAND, CAMILLA,URINE, ALDOLASE, SPE, CAMILLA SERUM #### [facility] , #### ADDONUAPLUS, T4F, ESR, CMP, CK, CBC, CRP, TSH3 #### [facility] [address] Glucose [Mass/Vol] Glucose [Mass/volume ] in Serum or Plasma High 70-100 [facility] Comment on above: ADA recommended refe rence rangeRandom Glucose Reference Range is dependent on time and content of last meal. Glucose of more than 200 mg/dL in a nonstressed, ambulatory subject supports the diagnosis of Diabetes Mellitus. Glucose [Mass/volume] in Uri ne by Test stripOrdered By: Jesus Ayala on 08-02-2024 Glucose Test strip (U) [Mass/Vol] 50 mg/dL High Normal [facility] Glucose Test strip (U) [Mass/Vol] Glucose [Mass/volume] in Urine by Test strip High Normal [facility] Hematocrit Auto (Bld) [Volum e fraction]Ordered By: Jesus Ayala on 08-02-2024 Hematocrit (Bld) [Volume fraction] Hematocrit [Volume Fraction] of Blood by Automated count 34.0-46.4 [facility] Hematocrit [Volume Fraction] of Blood by Automated countOrdered By: Jesus Ayala on 08-02-2024 Hematocrit (Bld) [Volume fraction] 37.0 % Normal 34.0-46.4 [facility] Comment on above: Performed By: #### U PE RAND, CAMILLA,URINE, ALDOLASE, SPE, CAMILLA SERUM #### [facility] , #### ADDONUAPLUS, T4F, ESR, CMP, CK, CBC, CRP, TSH3 #### [facility] [address] Hemoglobin Test strip Ql (U) Ordered By: Jesus Ayala on 08-02-2024 Hemoglobin Ql (U) Negative Negative [facility] Hemoglobin Ql (U) Hemoglobin [Presence ] in Urine by Test strip Negative [facility] Hemoglobin [Mass/volume] in BloodOrdered By: Jesus Ayala on 08-02-2024 Hemoglobin (Bld) [Mass/Vol] 12.4 g/dL Normal 11.8-15.4 [facility] Comment on above: Performed By: #### U PE RAND, CAMILLA,URINE, ALDOLASE, SPE, CAMILLA SERUM #### [facility] , #### ADDONUAPLUS, T4F, ESR, CMP, CK, CBC, CRP, TSH3 #### [facility] [address] [place] [address] [place] Hemoglobin (Bld) [Mass/Vol] Hemoglobin [Mass/volume] in Blood 11.8-15.4 [facility] Immunofixation for UrineOrde red By: Jesus Ayala on 08-02-2024 Interpretation Immunofixation (U) [Interp] Immunofixation for Urine . [facility] Comment on above: No monoclonality det ected.Performed at: [facility] [place], [place] [id number] Director: Gabriel Whitman PhD, Phone: [phone] Immunofixation, (CAMILLA), Urine on 08-02-2024 Immunofixation, (CAMILLA), Urine Comment Normal . [facility] Comment on above: Result Comment: No m onoclonality detected. Performed at: [facility] [address] [place], [place] [id number] [employer]: Gabriel Whitman PhD, Phone: [phone] Performed By: #### U PE RAND, CAMILLA,URINE, ALDOLASE, SPE, CAMILLA SERUM ####[facility] ,#### ADDONUAPLUS, T4F, ESR, CMP, CK, CBC, CRP, TSH3 ####[address] Immunofixation,Serumon 08-02 Immunofixation, Serum Comment Normal . [facility] Comment on above: Result Comment: No m onoclonality detected. Performed By: #### U PE RAND, CAMILLA,URINE, ALDOLASE, SPE, CAMILLA SERUM ####[facility] ,#### ADDONUAPLUS, T4F, ESR, CMP, CK, CBC, CRP, TSH3 ####[address] Immunoglobulin A, Serum 136 mg/dL Normal 87-352 [facility] Comment on above: Performed By: #### U PE RAND, CAMILLA,URINE, ALDOLASE, SPE, CAMILLA SERUM ####[facility] ,#### ADDONUAPLUS, T4F, ESR, CMP, CK, CBC, CRP, TSH3 ####[place] [id number] [facility] Immunoglobulin G 1357 mg/dL Normal [id number] [facility] Comment on above: Performed By: #### U PE RAND, CAMILLA,URINE, ALDOLASE, SPE, CAMILLA SERUM ####[facility] ,#### ADDONUAPLUS, T4F, ESR, CMP, CK, CBC, CRP, TSH3 ####[facility] Immunoglobulin M, Serum 94 mg/dL Normal 26-217 T [facility] Comment on above: Result Comment: Perf ormed at: - [facility] [address] [id number] [employer]: Gabriel Whitman PhD, Phone: [phone] Performed By: #### U PE RAND, CAMILLA,URINE, ALDOLASE, SPE, CAMILLA SERUM ####[facility] ,#### ADDONUAPLUS, T4F, ESR, CMP, CK, CBC, CRP, TSH3 ####[facility] Ketones Test strip Ql (U)Ord ered By: Jesus Ayala on 08-02-2024 Ketones Ql (U) Ketones [Presence] i n Urine by Test strip Negative [facility] Ketones [Presence] in Urine by Test stripOrdered By: Jesus Ayala on 08-02-2024 Ketones Ql (U) Negative Normal Negative [facility] Comment on above: Order Comment: Name Collection Type:: Clean-Voided Midstream Performed By: #### U PE RAND, CAMILLA,URINE, ALDOLASE, SPE, CAMILLA SERUM #### [facility] , #### ADDONUAPLUS, T4F, ESR, CMP, CK, CBC, CRP, TSH3 #### [facility] [address] Laboratory - UrinalysisOrder ed By: Jesus Ayala on 08-02-2024 Hyaline casts LM Ql (Urine sed) 0-8 [LPF] 0-8 [facility] Leukocyte esterase [Presence ] in Urine by Test stripOrdered By: Jesus Ayala on 08-02-2024 Leukocyte esterase Test strip Ql (U) Negative Normal Negative [facility] Comment on above: Order Comment: Name Collection Type:: Clean-Voided Midstream Performed By: #### U PE RAND, CAMILLA,URINE, ALDOLASE, SPE, CAMILLA SERUM #### [facility] , #### ADDONUAPLUS, T4F, ESR, CMP, CK, CBC, CRP, TSH3 #### [facility] [address] Leukocyte esterase Test strip Ql (U) Leukocyte esterase [Presence] in Urine by Test strip Negative [facility] Leukocytes [#/area] in Urine sediment by Automated countOrdered By: Jesus Ayala on 08-02-2024 WBC Auto (Urine sed) [#/Area] 3-4 [HPF] 0-4 [facility] Leukocytes [#/volume] correc noah for nucleated erythrocytes in Blood by Automated counOrdered By: Jesus Ayala on 08-02-2024 WBC corrected for nucl RBC Auto (Bld) [#/Vol] 7.8 10*3/uL 3.8-11.6 [facility] WBC corrected for nucl RBC Auto (Bld) [#/Vol] Leukocytes [#/volume] corrected for nucleated erythrocytes in Blood by Automated coun 3.8-11.6 [facility] Leukocytes [#/volume] in Blo od by Automated countOrdered By: Jesus Ayala on 08-02-2024 WBC (Bld) [#/Vol] 7.8 10*3/uL Normal 3.8-11.6 [facility] Comment on above: Performed By: #### U PE RAND, CAMILLA,URINE, ALDOLASE, SPE, CAMILLA SERUM #### [facility] , #### ADDONUAPLUS, T4F, ESR, CMP, CK, CBC, CRP, TSH3 #### [facility] [address] [place] [address] [place] Lymphocytes Auto (Bld) [#/Vo l]Ordered By: Jesus Ayala on 08-02-2024 Lymphocytes (Bld) [#/Vol] Lymphocytes [#/volume] in Blood by Automated count 1.00-4.8 [facility] Lymphocytes [#/volume] in Bl ood by Automated countOrdered By: Jesus Ayala on 08-02-2024 Lymphocytes (Bld) [#/Vol] 1.2 10*3/uL Normal 1.00-4.8 [facility] Comment on above: Performed By: #### U PE RAND, CAMILLA,URINE, ALDOLASE, SPE, CAMILLA SERUM #### [facility] , #### ADDONUAPLUS, T4F, ESR, CMP, CK, CBC, CRP, TSH3 #### [facility] [address] Lymphocytes/100 WBC Auto (Bl d)Ordered By: Jesus Ayala on 08-02-2024 Lymphocytes/100 WBC (Bld) Lymphocytes/100 leukocytes in Blood by Automated count . [facility] Lymphocytes/100 leukocytes i n Blood by Automated countOrdered By: Jesus Ayala on 08-02-2024 Lymphocytes/100 WBC (Bld) 15.0 % Normal . [facility] Comment on above: Performed By: #### U PE RAND, CAMILLA,URINE, ALDOLASE, SPE, CAMILLA SERUM #### [facility] , #### ADDONUAPLUS, T4F, ESR, CMP, CK, CBC, CRP, TSH3 #### [address] MCH Auto (RBC) [Entitic mass ]Ordered By: Jesus Ayala on 08-02-2024 MCH (RBC) [Entitic mass] MCH [Entitic mass] by Automated count 24.7-34.3 [facility] MCH [Entitic mass] by Automa noah countOrdered By: Jesus Ayala on 08-02-2024 MCH (RBC) [Entitic mass] 28.3 pg Normal 24.7-34.3 [facility] Comment on above: Performed By: #### U PE RAND, CAMILLA,URINE, ALDOLASE, SPE, CAMILLA SERUM #### [facility] , #### ADDONUAPLUS, T4F, ESR, CMP, CK, CBC, CRP, TSH3 #### [address] MCHC Auto (RBC) [Mass/Vol]Or dered By: Jesus Ayala on 08-02-2024 MCHC (RBC) [Mass/Vol] 33.5 g/dL 32.0-35.0 [facility] MCHC (RBC) [Mass/Vol] MCHC [Mass/volume] by Automated count 32.0-35.0 [facility] MCV Auto (RBC) [Entitic vol] Ordered By: Jesus Ayala on 08-02-2024 MCV (RBC) [Entitic vol] MCV [Entitic vol ume] by Automated count 80-100 [facility] MCV [Entitic volume] by Auto mated countOrdered By: Jesus Ayala on 08-02-2024 MCV (RBC) [Entitic vol] 84.6 fL Normal 80-100 [facility] Comment on above: Performed By: #### U PE RAND, CAMILLA,URINE, ALDOLASE, SPE, CAMILLA SERUM #### [facility] , #### ADDONUAPLUS, T4F, ESR, CMP, CK, CBC, CRP, TSH3 #### [facility] [address] Monocytes Auto (Bld) [#/Vol] Ordered By: Jesus Ayala on 08-02-2024 Monocytes (Bld) [#/Vol] Automated blood monocyte count 0.0-0.8 [facility] Monocytes/100 WBC Auto (Bld) Ordered By: Jesus Ayala on 08-02-2024 Monocytes/100 WBC (Bld) Automated monocyte % . [facility] Neutrophils Auto (Bld) [#/Vo l]Ordered By: Jesus Ayala on 08-02-2024 Neutrophils (Bld) [#/Vol] Neutrophils [#/volume] in Blood by Automated count 1.8-7.7 [facility] Neutrophils [#/volume] in Bl ood by Automated countOrdered By: Jesus Ayala on 08-02-2024 Neutrophils (Bld) [#/Vol] 6.0 10*3/uL Normal 1.8-7.7 [facility] Comment on above: Performed By: #### U PE RAND, CAMILLA,URINE, ALDOLASE, SPE, CAMILLA SERUM #### [facility] , #### ADDONUAPLUS, T4F, ESR, CMP, CK, CBC, CRP, TSH3 #### [facility] [address] Neutrophils/100 WBC Auto (Bl d)Ordered By: Jesus Ayala on 08-02-2024 Neutrophils/100 WBC (Bld) Automated neutrophil % . [facility] Nitrite Test strip Ql (U)Ord ered By: Jesus Ayala on 08-02-2024 Nitrite Ql (U) Negative Negative [facility] Nitrite Ql (U) Nitrite [Presence] i n Urine by Test strip Negative [facility] No Panel InformationOrdered By: Jesus Ayala on 08-02-2024 Estimated GFR (CKD-EPI) > 60.0 mL/Min [facility] Creatinine Clearance (Chem N/A [facility] Protein Electrophoresis M-Maury Not observed g/dL Not Observed [facility] Protein Electrophoresis Note Comment . [facility] Comment on above: Protein electrophore sis scan will follow via computer,mail, or cage loader delivery.Performed at: [address] Director: Gabriel Whitman PhD, Phone: [phone] Urine Random Prot Electrophor Note Comment . [facility] Comment on above: Protein electrophore sis scan will follow via computer,mail, or cage loader delivery. Nucleated erythrocytes [Pres ence] in Blood by Automated countOrdered By: Jesus Ayala on 08-02-2024 Nucleated RBC Auto Ql (Bld) 0.1 /100{WBC} 0-0.5 [facility] Nucleated RBC Auto Ql (Bld) Nucleated erythrocytes [Presence] in Blood by Automated count 0-0.5 [facility] Platelet mean volume Auto (B ld) [Entitic vol]Ordered By: Jesus Ayala on 08-02-2024 Platelet mean volume (Bld) [Entitic vol] Platelet mean volume [Entitic volume] in Blood by Automated count 6.3-10.7 [facility] Platelet mean volume [Entiti c volume] in Blood by Automated countOrdered By: Jesus Ayala on 08-02-2024 Platelet mean volume (Bld) [Entitic vol] 6.6 fL Normal 6.3-10.7 [facility] Comment on above: Performed By: #### U PE RAND, CAMILLA,URINE, ALDOLASE, SPE, CAMILLA SERUM #### [facility] , #### ADDONUAPLUS, T4F, ESR, CMP, CK, CBC, CRP, TSH3 #### [facility] [address] [place] [address] [place] Platelets Auto (Bld) [#/Vol] Ordered By: Jesus Ayala on 08-02-2024 Platelets (Bld) [#/Vol] Platelets [#/vol ume] in Blood by Automated count 150-450 [facility] Platelets [#/volume] in Bloo d by Automated countOrdered By: Jesus Ayala on 08-02-2024 Platelets (Bld) [#/Vol] 439 10*3/uL Normal 150-450 [facility] Comment on above: Performed By: #### U PE RAND, CAMILLA,URINE, ALDOLASE, SPE, CAMILLA SERUM #### [facility] , #### ADDONUAPLUS, T4F, ESR, CMP, CK, CBC, CRP, TSH3 #### [facility] [address] [place] [address] [place] Potassium [Moles/volume] in Serum or PlasmaOrdered By: Jesus Ayala on 08-02-2024 Potassium [Moles/Vol] 3.8 mmol/L Normal 3.5-5.1 [facility] Comment on above: Performed By: #### U PE RAND, CAMILLA,URINE, ALDOLASE, SPE, CAMILLA SERUM #### [facility] , #### ADDONUAPLUS, T4F, ESR, CMP, CK, CBC, CRP, TSH3 #### [facility] [address] [place] [address] [place] Potassium [Moles/Vol] Potassium [Moles/v olume] in Serum or Plasma 3.5-5.1 [facility] Protein Electro, Random Urin yonis 08-02-2024 Albumin, Urine 36.1 % Normal . [facility] Comment on above: Performed By: #### U PE RAND, CAMILLA,URINE, ALDOLASE, SPE, CAMILLA SERUM ####[facility] ,#### ADDONUAPLUS, T4F, ESR, CMP, CK, CBC, CRP, TSH3 ####[place] [id number] [place] Lxsnc-3-Klcpwmdi, Urine 4.1 % Normal . [facility] Comment on above: Performed By: #### U PE RAND, CAMILLA,URINE, ALDOLASE, SPE, CAMILLA SERUM ####[facility] ,#### ADDONUAPLUS, T4F, ESR, CMP, CK, CBC, CRP, TSH3 ####[address] Xmhce-8-Xpmclksp, Urine 18.4 % Normal . [facility] Comment on above: Performed By: #### U PE RAND, CAMILLA,URINE, ALDOLASE, SPE, CAMILLA SERUM ####[facility] ,#### ADDONUAPLUS, T4F, ESR, CMP, CK, CBC, CRP, TSH3 ####[place] [id number] [place] Beta Globulin, Urine 24.3 % Normal . [facility] Comment on above: Performed By: #### U PE RAND, CAMILLA,URINE, ALDOLASE, SPE, CAMILLA SERUM ####[facility] ,#### ADDONUAPLUS, T4F, ESR, CMP, CK, CBC, CRP, TSH3 ####[place] [id number] [place] Gamma Globulin, Urine 17.1 % Normal . [facility] Comment on above: Performed By: #### U PE RAND, CAMILLA,URINE, ALDOLASE, SPE, CAMILLA SERUM ####[facility] ,#### ADDONUAPLUS, T4F, ESR, CMP, CK, CBC, CRP, TSH3 ####[address] M-Maury % Not Observed Normal Not Observed [facility] Comment on above: Performed By: #### U PE RAND, CAMILLA,URINE, ALDOLASE, SPE, CAMILLA SERUM ####[facility] ,#### ADDONUAPLUS, T4F, ESR, CMP, CK, CBC, CRP, TSH3 ####[address] Please Note: Comment Normal . [facility] Comment on above: Result Comment: Prot ein electrophoresis scan will follow via computer, mail, or cage loader delivery. PERFORMED BY: [facility] [address] [facility] [place] [place] [address] PATHOLOGIST [employer]ST CONTROLLER ANAHY MCKEE M.D. Performed By: #### U PE RAND, CAMILLA,URINE, ALDOLASE, SPE, CAMILLA SERUM ####[facility] ,#### ADDONUAPLUS, T4F, ESR, CMP, CK, CBC, CRP, TSH3 ####[address] Protein (U) [Mass/Vol] 9.0 mg/dL Normal Not Estab. [facility] Comment on above: Performed By: #### U PE RAND, CAMILLA,URINE, ALDOLASE, SPE, CAMILLA SERUM ####[facility] ,#### ADDONUAPLUS, T4F, ESR, CMP, CK, CBC, CRP, TSH3 ####[address] Protein Electrophoresis, Ser umon 08-02-2024 Albumin [Mass/Vol] 3.9 g/dL Normal 2.9-4.4 [facility] Comment on above: Performed By: #### U PE RAND, CAMILLA,URINE, ALDOLASE, SPE, CAMILLA SERUM ####[facility] ,#### ADDONUAPLUS, T4F, ESR, CMP, CK, CBC, CRP, TSH3 ####[address] Albumin/Globulin [Mass ratio] 1.1 {ratio} Normal 0.7-1.7 [facility] Comment on above: Performed By: #### U PE RAND, CAMILLA,URINE, ALDOLASE, SPE, CAMILLA SERUM ####[facility] ,#### ADDONUAPLUS, T4F, ESR, CMP, CK, CBC, CRP, TSH3 ####[address] Uufxt-9-Bbysnsxn 0.2 g/dL Normal 0.0-0.4 [facility] Comment on above: Performed By: #### U PE RAND, CAMILLA,URINE, ALDOLASE, SPE, CAMILLA SERUM ####[facility] ,#### ADDONUAPLUS, T4F, ESR, CMP, CK, CBC, CRP, TSH3 ####[address] Pvsns-3-Jrmrjivd 1.0 g/dL Normal 0.4-1.0 [facility] Comment on above: Performed By: #### U PE RAND, CAMILLA,URINE, ALDOLASE, SPE, CAMILLA SERUM ####[facility] ,#### ADDONUAPLUS, T4F, ESR, CMP, CK, CBC, CRP, TSH3 ####[address] Beta Globulin 1.2 g/dL Normal 0.7-1.3 [facility] Comment on above: Performed By: #### U PE RAND, CAMILLA,URINE, ALDOLASE, SPE, CAMILLA SERUM ####[facility] ,#### ADDONUAPLUS, T4F, ESR, CMP, CK, CBC, CRP, TSH3 ####[address] Gamma Globulin 1.3 g/dL Normal 0.4-1.8 [facility] Comment on above: Performed By: #### U PE RAND, CAMILLA,URINE, ALDOLASE, SPE, CAMILLA SERUM ####[facility] ,#### ADDONUAPLUS, T4F, ESR, CMP, CK, CBC, CRP, TSH3 ####[address] Globulin (S) [Mass/Vol] 3.6 g/dL Normal 2.2-3.9 [facility] Comment on above: Performed By: #### U PE RAND, CAMILLA,URINE, ALDOLASE, SPE, CAMILLA SERUM ####[facility] ,#### ADDONUAPLUS, T4F, ESR, CMP, CK, CBC, CRP, TSH3 ####[address] M-Maury Not Observed Normal Not Observed [facility] Comment on above: Performed By: #### U PE RAND, CAMILLA,URINE, ALDOLASE, SPE, CAMILLA SERUM ####[facility] ,#### ADDONUAPLUS, T4F, ESR, CMP, CK, CBC, CRP, TSH3 ####[address] SPE-Note Comment Normal . [facility] Comment on above: Result Comment: Prot ein electrophoresis scan will follow via computer, mail, or cage loader delivery. Performed at: - [address] [id number] [employer] Juice: Gabriel Whitman PhD, Phone: [phone] PERFORMED BY: [facility] [address] [place] [address] PATHOLOGIST COST CONTROLLER ANAHY MCKEE M.D. Performed By: #### U PE RAND, CAMILLA,URINE, ALDOLASE, SPE, CAMILLA SERUM ####[facility] ,#### ADDONUAPLUS, T4F, ESR, CMP, CK, CBC, CRP, TSH3 ####[address] Protein Test strip (U) [Mass /Vol]Ordered By: Jesus Ayala on 08-02-2024 Protein (U) [Mass/Vol] Negative Negative [facility] Protein (U) [Mass/Vol] Protein [Mass/vol ume] in Urine by Test strip Negative [facility] Protein [Mass/volume] in Ser um or PlasmaOrdered By: Jesus Ayala on 08-02-2024 Protein [Mass/Vol] 7.5 g/dL Normal 6.0-8.5 [facility] Comment on above: Performed By: #### U PE RAND, CAMILLA,URINE, ALDOLASE, SPE, CAMILLA SERUM #### [facility] , #### ADDONUAPLUS, T4F, ESR, CMP, CK, CBC, CRP, TSH3 #### [facility] [address] Performed By: #### U PE RAND, CAMILLA,URINE, ALDOLASE, SPE, CAMILLA SERUM ####[facility] ,#### ADDONUAPLUS, T4F, ESR, CMP, CK, CBC, CRP, TSH3 ####[facility] [id number] Protein [Mass/Vol] Protein [Mass/volume ] in Serum or Plasma 6.0-8.5 [facility] RBC Auto (Bld) [#/Vol]Ordere d By: Jesus Ayala on 08-02-2024 RBC (Bld) [#/Vol] Erythrocytes [#/volu me] in Blood by Automated count 3.60-5.00 [facility] Serum aldolase measurementOr dered By: Jesus Ayala on 08-02-[address] biopsy 3.3-10.3 [facility] Comment on above: Performed at: [address] [id number] Director: Gabriel Whitman PhD, Phone: [phone] Serum globulin measurement ( mass/volume)Ordered By: Jesus Ayala on 08-02-2024 Globulin (S) [Mass/Vol] Serum globulin measurement (mass/volume) 2.2-3.9 [facility] Serum globulin measurement b y calculation (mass/volume)Ordered By: Jesus Ayala on 08-02-2024 Globulin (S) [Mass/Vol] 3.2 g/dL Normal [facility] Comment on above: Performed By: #### U PE RAND, CAMILLA,URINE, ALDOLASE, SPE, CAMILLA SERUM #### [facility] , #### ADDONUAPLUS, T4F, ESR, CMP, CK, CBC, CRP, TSH3 #### [facility] [address] Serum immunofixation electro phoresisOrdered By: Jesus Ayala on 08-02-2024 Serum Immunofixation Comment . [facility] Comment on above: No monoclonality det ected. Serum or plasma IgA measurem ent (mass/volume)Ordered By: Jesus Ayala on 08-02-2024 IgA [Mass/Vol] IgA [Mass/volume] in Serum or Plasma 87-352 [facility] Serum or plasma IgG measurem ent (mass/volume)Ordered By: Jesus Ayala on 08-02-2024 IgG [Mass/Vol] IgG [Mass/volume] in Serum or Plasma [phone] [facility] Serum or plasma IgM measurem ent (mass/volume)Ordered By: Jesus Ayala on 08-02-2024 IgM [Mass/Vol] IgM [Mass/volume] in Serum or Plasma 26-217 [facility] Comment on above: Performed at: - [place] [address] [id number] Director: Gabriel Whitman PhD, Phone: [phone] Serum or plasma albumin ge urement (mass/volume)Ordered By: Jesus Ayala on 08-02-2024 Albumin [Mass/Vol] Albumin [Mass/volume ] in Serum or Plasma 2.9-4.4 [facility] Serum or plasma albumin/glob ulin mass ratioOrdered By: Jesus Ayala on 08-02-2024 Albumin/Globulin [Mass ratio] 1.3 {ratio} Normal [facility] Comment on above: Performed By: #### U PE RAND, CAMILLA,URINE, ALDOLASE, SPE, CAMILLA SERUM #### [facility] , #### ADDONUAPLUS, T4F, ESR, CMP, CK, CBC, CRP, TSH3 #### [facility] [address] Albumin/Globulin [Mass ratio] Serum or plasma albumin/globulin mass ratio 0.7-1.7 [facility] Serum or plasma alpha 1 glob ulin measurement by electrophoresis (mass/volume)Ordered By: Jesus Ayala on 08-02-2024 Alpha 1 globulin Elph [Mass/Vol] Serum or plasma alpha 1 globulin measurement by electrophoresis (mass/volume) 0.0-0.4 [facility] Serum or plasma alpha 2 glob ulin measurement by electrophoresis (mass/volume)Ordered By: Jesus Ayala on 08-02-2024 Alpha 2 globulin Elph [Mass/Vol] Serum or plasma alpha 2 globulin measurement by electrophoresis (mass/volume) 0.4-1.0 [facility] Serum or plasma anion gap de terminationOrdered By: Jesus Ayala on 08-02-2024 Anion gap [Moles/Vol] 12.2 mmol/L Normal 6.0-15.0 [facility] Comment on above: Performed By: #### U PE RAND, CAMILLA,URINE, ALDOLASE, SPE, CAMILLA SERUM #### [facility] , #### ADDONUAPLUS, T4F, ESR, CMP, CK, CBC, CRP, TSH3 #### [facility] [address] Anion gap [Moles/Vol] Serum or plasma an ion gap determination 6.0-15.0 [facility] Serum or plasma beta globuli n measurement by electrophoresis (mass/volume)Ordered By: Jesus Ayala on 08-02-2024 Beta globulin Elph [Mass/Vol] Serum or plasma beta globulin measurement by electrophoresis (mass/volume) 0.7-1.3 [facility] Serum or plasma cancer antig en 125 (CA-125) measurement (units/volume)Ordered By: Blake Hinojosa on 08-02-2024 Cancer Ag 125 Qn Serum or plasma [facility] antigen 125 (CA-125) measurement (units/volume) 0.0-38.1 [facility] Comment on above: [employer] El ectrochemiluminescence Immunoassay(ECLIA)Values obtained with different assay methods or kits cannotbe used interchangeably. Results cannot be interpreted asabsolute evidence of the presence or absence of malignantdisease.Performed at: [address] [id number] Director: Gabriel Whitman PhD, Phone: [phone] Serum or plasma carcinoembry onic antigen measurement (mass/volume)Ordered By: Blake Hinojosa on 08-02-2024 Carcinoembryonic Ag [Mass/Vol] 1.0 ng/mL 0.0-3.0 [facility] Comment on above: Serial tumor marker results determined by assays using different manufacturers or methods may not be comparable.[facility] polysomnography technologist and method:MclowdEL DXI, 2 SITE IMMUNOENZYMATIC SANDWICH ASSAY. Serum or plasma gamma globul in measurement by electrophoresis (mass/volume)Ordered By: Jesus Ayala on 08-02-2024 Gamma globulin Elph [Mass/Vol] Serum or plasma gamma globulin measurement by electrophoresis (mass/volume) 0.4-1.8 [facility] Sodium [Moles/volume] in Ser um or PlasmaOrdered By: Jesus Ayala on 08-02-2024 Sodium [Moles/Vol] 138 mmol/L Normal 136-145 [facility] Comment on above: Performed By: #### U PE RAND, CAMILLA,URINE, ALDOLASE, SPE, CAMILLA SERUM #### [facility] , #### ADDONUAPLUS, T4F, ESR, CMP, CK, CBC, CRP, TSH3 #### [facility] [address] Sodium [Moles/Vol] Sodium [Moles/volume ] in Serum or Plasma 136-145 [facility] Specific gravity Test strip (U) [Rel density]Ordered By: Jesus Ayala on 08-02-2024 Specific gravity (U) [Rel density] 1.013 1.001-1.030 [facility] Specific gravity (U) [Rel density] Specific gravity of Urine by Test strip 1.001-1.030 [facility] Thyrotropin [Units/volume] i n Serum or PlasmaOrdered By: Jesus Ayala on 08-02-2024 TSH Qn 2.77 m[IU]/L Normal 0.45-5.33 [facility] Comment on above: Result Comment: PERF ORMED BY: [place] [address] PATHOLOGIST [employer]ST CONTROLLER ANAHY MCKEE M.D. Performed By: #### U PE RAND, CAMILLA,URINE, ALDOLASE, SPE, CAMILLA SERUM #### [facility] , #### ADDONUAPLUS, T4F, ESR, CMP, CK, CBC, CRP, TSH3 #### [facility] [address] [place] [address] TSH Qn Thyrotropin [Units/volume] in Serum or Plasma 0.45-5.33 [facility] Thyroxine (T4) free [Mass/vo lume] in Serum or PlasmaOrdered By: Jesus Gruberrow on 08-02-2024 Free T4 [Mass/Vol] 0.68 ng/dL Normal 0.61-1.12 [facility] Comment on above: Performed By: #### U PE RAND, CAMILLA,URINE, ALDOLASE, SPE, CAMILLA SERUM #### [facility] , #### ADDONUAPLUS, T4F, ESR, CMP, CK, CBC, CRP, TSH3 #### [facility] [address] [place] [address] Free T4 [Mass/Vol] Thyroxine (T4) free [Mass/volume] in Serum or Plasma 0.61-1.12 [facility] Urea nitrogen [Mass/volume] in Serum or PlasmaOrdered By: Jesus Ayala on 08-02-2024 Urea nitrogen [Mass/Vol] 14 mg/dL Normal 7-25 [facility] Comment on above: Performed By: #### U PE RAND, CAMILLA,URINE, ALDOLASE, SPE, CAMILLA SERUM #### [facility] , #### ADDONUAPLUS, T4F, ESR, CMP, CK, CBC, CRP, TSH3 #### [facility] [address] Urea nitrogen [Mass/Vol] Urea nitrogen [Mass/volume] in Serum or Plasma 04-29 [facility] Urine alpha 1 globulin/total protein by electrophoresisOrdered By: Jesus Ayala on 08-02-2024 Alpha 1 globulin Elph (U) [Mass fraction] Urine alpha 1 globulin/total protein by electrophoresis . [facility] Urine alpha 2 globulin/total protein ratio by electrophoresisOrdered By: Jesus Ayala on 08-02-2024 Alpha 2 globulin Elph (U) [Mass fraction] Urine alpha 2 globulin/total protein ratio by electrophoresis . [facility] Urine appearanceOrdered By: Jesus Ayala on 08-02-2024 Appearance (U) Clear Normal Clear [facility] Comment on above: Order Comment: Name Collection Type:: Clean-Voided Midstream Performed By: #### U PE RAND, CAMILLA,URINE, ALDOLASE, SPE, CAMILLA SERUM #### [facility] , #### ADDONUAPLUS, T4F, ESR, CMP, CK, CBC, CRP, TSH3 #### [facility] [address] [place] [address] Urine bacteria detection by automated methodOrdered By: Jesus Ayala on 08-02-2024 Bacteria Auto Ql (U) Bacteria [Presence] in Urine by Automated None Seen [facility] Urine beta globulin measurem ent by electrophoresis (mass/volume)Ordered By: Jesus Ayala on 08-02-2024 Beta globulin Elph (U) [Mass/Vol] Urine beta globulin measurement by electrophoresis (mass/volume) . [facility] Urine protein measurement (m ass/volume)Ordered By: Jesus Ayala on 08-02-2024 Protein (U) [Mass/Vol] Protein [Mass/vol ume] in Urine Not Estab. [facility] Urobilinogen Test strip (U) [Mass/Vol]Ordered By: Jesus Ayala on 08-02-2024 Urobilinogen (U) [Mass/Vol] Normal mg/dL Normal [facility] Urobilinogen (U) [Mass/Vol] Urobilinogen [Mass/volume] in Urine by Test strip Normal [facility] WBC Auto (Bld) [#/Vol]Ordere d By: Jesus Ayala on 08-02-2024 WBC (Bld) [#/Vol] Leukocytes [#/volume ] in Blood by Automated count 3.8-11.6 [facility] XR chest 2V*on 08-02-2024 XR chest 2V* [facility] [address] [place] [address] XRay Report Signed Patient: Mandeep Puri MR#: [id number] 15 : 1975 Acct:[id number] Age/Sex: 48 / F ADM Date: 08/02/24 Loc: XD Room: Type: [facility] Attending Dr: Jesus Ayala MD Copies [...] Trupti Adorno M.D.08/02/2024 4:18 PM Dictation Location: [place] [address] Transcribed By: [facility] 08/02/24 161 Dictated By: Trupti Adorno MD 08/02/24 1617 Signed By: 08/02/24 1618 Normal [facility] pH Test strip (U)Ordered By: Jesus Ayala on 08-02-2024 pH (U) pH of Urine by Test strip 5.0-9.0 [facility] pH of Urine by Test stripOrd ered By: Jesus Ayala on 08-02-2024 pH (U) 7.0 [pH] Normal 5.0-9.0 [facility] Comment on above: Order Comment: Name Collection Type:: Clean-Voided Midstream Performed By: #### U PE RAND, CAMILLA,URINE, ALDOLASE, SPE, CAMILLA SERUM #### [facility] , #### ADDONUAPLUS, T4F, ESR, CMP, CK, CBC, CRP, TSH3 #### [facility] [address] ALL CBC WITH AUTO DIFFon BASOPHILS ABSOLUTE AUTO [address] [facility] Basophils/100 WBC (Bld) 0.5 % 0.2 - 2.0 % [facility] Eosinophils/100 WBC (Bld) 2.9 % 0.9 - 7.0 % [facility] Erythrocyte distribution width (RBC) [Ratio] 14.4 % 11.0 - 15.0 % [facility] Hematocrit (Bld) [Volume fraction] 35.2 % Low 36.0 - 48.0 % [facility] Hemoglobin (Bld) [Mass/Vol] 11.4 g/dL Low 12.0 - 16.0 g/dL [facility] IMMATURE GRANULOCYTES ABS AUTO 0.06 High [facility] Immature granulocytes/100 WBC (Bld) 0.7 % High 0.0 - 0.5 % [facility] Interpretation and review of laboratory results Abnormal [facility] LYMPHOCYTES ABSOLUTE AUTO 1.1 Low [facility] Lymphocytes/100 WBC (Bld) 14 % Low 20.5 - 60.0 % [facility] MCH (RBC) [Entitic mass] 28 pg 26.7 - 34.0 pg [facility] MCHC (RBC) [Mass/Vol] 32.4 g/dL 29.9 - 35.2 g/dL [facility] MCV (RBC) [Entitic vol] 86.5 fL 81.0 - 99.0 fL [facility] MONOCYTES ABSOLUTE AUTO 0.[address] [facility] Monocytes/100 WBC (Bld) 5 % 1.7 - 12.0 % [facility] NEUTROPHILS ABSOLUTE AUTO 6.3 [facility] Neutrophils/100 WBC (Bld) 76.9 % High 43.0 - 75.0 % [facility] Platelet mean volume (Bld) [Entitic vol] 8.3 fL Low 9.5 - 13.5 fL [facility] TBH EO # 0.2 [facility] TB PLT 362 [facility] TB RBC 4.07 Low [facility] TB WBC 8.2 [facility] Follow-Upon 07-07-2024 Follow-Up [id number] Antonio Puri i 1975 F Date Provider Department Center 07/07/2024 SREE BOOKER [facility] Second Fl Family History Problem Relation Age of Onset Fibromyalgia Mother Heart disease Father Hypertension Sister Polycystic kidney disease Sister Hypertension Brother Polycystic kidney disease Brother Family Status - Relation Status Age at Mother Father Sister Brother Level of Service:03372 DC OFFICE/OUTPATIENT ESTABLISHED LOW MDM 20 MIN Reason for Visit and Comments: UTI [[id number]] - CT results Normal [facility] URINE CULTURE, ROUTINEon Bacteria identified Cx Nom (U) ESCHERICHIA COLI Abnormal [facility] Comment on above: Result Comment: >100 ,000 CFU/Ml Escherichia coli Susceptibility to Follow Performed By: #### L [id number] ####[facility] ([facility]AKER)[address] [place] [address] CT ABDOMEN PELVIS WO IV CONT RUST 07-02-2024 CT ABDOMEN PELVIS WO IV CONTRAST [...] kidney with innumerable circumscribed lesions within the [place] kidneys, many which are simple cysts, others [...] Epperson MD. Not Vldtd Invalid Interpretation Code [facility] ALL CBC WITH AUTO DIFFon BASOPHILS ABSOLUTE AUTO 0.[address] [facility] Basophils/100 WBC (Bld) 0.4 % 0.2 - 2.0 % [facility] Eosinophils/100 WBC (Bld) 2.4 % 0.9 - 7.0 % [facility] Erythrocyte distribution width (RBC) [Ratio] 15.5 % High 11.0 - 15.0 % [facility] Hematocrit (Bld) [Volume fraction] 37.7 % 36.0 - 48.0 % [facility] Hemoglobin (Bld) [Mass/Vol] 11.9 g/dL Low 12.0 - 16.0 g/dL [facility] IMMATURE GRANULOCYTES ABS AUTO 0.03 [facility] Immature granulocytes/100 WBC (Bld) 0.4 % 0.0 - 0.5 % [facility] Interpretation and review of laboratory results Abnormal [facility] LYMPHOCYTES ABSOLUTE AUTO 1.1 Low [facility] Lymphocytes/100 WBC (Bld) 14.8 % Low 20.5 - 60.0 % [facility] MCH (RBC) [Entitic mass] 27.9 pg 26.7 - 34.0 pg [facility] MCHC (RBC) [Mass/Vol] 31.6 g/dL 29.9 - 35.2 g/dL [facility] MCV (RBC) [Entitic vol] 88.3 fL 81.0 - 99.0 fL [facility] MONOCYTES ABSOLUTE AUTO 0.[address] [facility] Monocytes/100 WBC (Bld) 5.1 % 1.7 - 12.0 % [facility] NEUTROPHILS ABSOLUTE AUTO 5.7 [facility] Neutrophils/100 WBC (Bld) 76.9 % High 43.0 - 75.0 % [facility] Platelet mean volume (Bld) [Entitic vol] 8.6 fL Low 9.5 - 13.5 fL [facility] TBH EO # 0.2 [facility] TBH PLT 333 [facility] TB RBC 4.27 [facility] TBH WBC 7.5 [facility] Orders Onlyon 06-15-2024 Orders Only [id number] Antonio Puri i 1975 F Date Provider Department Center 06/15/2024 124-MUNIRA PHAN TXP None Family History Problem Relation Age of Onset Fibromyalgia Mother Heart disease Father Hypertension Sister Polycystic kidney disease Sister Hypertension Brother Polycystic kidney disease Brother Family Status - Relation Status Age at Mother Father Sister Brother Normal [facility] ALL CBC WITH AUTO DIFFon BASOPHILS ABSOLUTE AUTO 0.[address] [facility] Basophils/100 WBC (Bld) 0.5 % 0.2 - 2.0 % [facility] Eosinophils/100 WBC (Bld) 3.0 % 0.9 - 7.0 % [facility] Erythrocyte distribution width (RBC) [Ratio] 15.9 % High 11.0 - 15.0 % [facility] Hematocrit (Bld) [Volume fraction] 36.3 % 36.0 - 48.0 % [facility] Hemoglobin (Bld) [Mass/Vol] 11.8 g/dL Low 12.0 - 16.0 g/dL [facility] IMMATURE GRANULOCYTES ABS AUTO 0.04 High [facility] Immature granulocytes/100 WBC (Bld) 0.5 % 0.0 - 0.5 % [facility] Interpretation and review of laboratory results Abnormal [facility] LYMPHOCYTES ABSOLUTE AUTO 1.2 [facility] Lymphocytes/100 WBC (Bld) 14.0 % Low 20.5 - 60.0 % [facility] MCH (RBC) [Entitic mass] 28.0 pg 26.7 - 34.0 pg [facility] MCHC (RBC) [Mass/Vol] 32.5 g/dL 29.9 - 35.2 g/dL [facility] MCV (RBC) [Entitic vol] 86.0 fL 81.0 - 99.0 fL [facility] MONOCYTES ABSOLUTE AUTO 0.[address] [facility] Monocytes/100 WBC (Bld) 5.7 % 1.7 - 12.0 % [facility] NEUTROPHILS ABSOLUTE AUTO 6.4 [facility] Neutrophils/100 WBC (Bld) 76.3 % High 43.0 - 75.0 % [facility] Platelet mean volume (Bld) [Entitic vol] 8.6 fL Low 9.5 - 13.5 fL [facility] TBH EO # 0.3 [facility] TBH PLT 331 [facility] TBH RBC 4.22 [facility] TB WBC 8.4 [facility] Consulton 05-19-2024 Consult [id number] Antonio Puri i 1975 F Date Provider Department Center 05/19/2024 3844-DELMYCAREYSREE [facility] Second Fl Family History Problem Relation Age of Onset Fibromyalgia Mother Heart disease Father Hypertension Sister Polycystic kidney disease Sister Hypertension Brother Polycystic kidney disease Brother Family Status - Relation Status Age at Mother Father Sister Brother Level of Service:57122 DC OFFICE/OUTPATIENT ESTABLISHED MOD MDM 30 MIN Reason for Visit and Comments: UTI [[id number]] - Recurrent chronic ecoli , has fibromyalgia and when that flairs up the UTI happens Normal [facility] CREATININE, URINE, RANDOMon 04-27-2024 Creatinine (U) [Mass/Vol] 142.0 mg/dL Normal 26-299 [facility] Comment on above: Performed By: #### L [id number] ####[facility] HOSPITAL [facility] ([facility]AKER)[address] [place] [address] Follow-Upon 04-27-2024 Follow-Up [id number] Antonio Puri i 1975 F Date Provider Department Center 04/27/2024 124-MUNIRA PHAN TXP None Family History Problem Relation Age of Onset Fibromyalgia Mother Heart disease Father Hypertension Sister Polycystic kidney disease Sister Hypertension Brother Polycystic kidney disease Brother Family Status - Relation Status Age at Mother Father Sister Brother Level of Service:33915 DC OFFICE/OUTPATIENT ESTABLISHED MOD MDM 30 MIN Reason [...] mg because they are smaller pills. Normal [facility] PROTEIN, URINE, RANDOMon Protein (U) [Mass/Vol] 51.7 mg/dL Normal Un [facility] Comment on above: Result Comment: Ther e are no established reference values for random urine specimens. Performed By: #### L [id number] ####[facility] ([facility])[address] [place] [address] URINALYSISon 04-27-2024 BILIRUBIN, TOTAL PRESENCE IN URINE Negative Normal Negative [facility] Comment on above: Performed By: #### L [id number] ####[facility] ([facility])[address] [place] [address] Clarity (U) Slightly Cloudy Abnormal Clear [facility] Comment on above: Performed By: #### L [id number] ####[facility] ([facility])[address] [place] [address] Color (U) Yellow Normal Yellow [facility] Comment on above: Performed By: #### L [id number] ####[facility] ([facility])[address] [place] [address] Glucose (U) [Mass/Vol] Negative Normal Negative [facility] Comment on above: Performed By: #### L [id number] ####[facility] ([facility])[address] [place] [address] HEMOGLOBIN PRESENCE IN URINE Small Abnormal Negative [facility] Comment on above: Performed By: #### L [id number] ####[facility] ([facility])[address] [place] [address] Ketones Ql (U) Negative Normal Negative [facility] Comment on above: Performed By: #### L [id number] ####[facility] ([facility]ER)[address] [place] [address] LEUKOCYTE ESTERASE PRESENCE IN URINE BY TEST STRIP Large Abnormal Negative [facility] Comment on above: Performed By: #### L [id number] ####[facility] ([facility])[address] [place] [address] NITRITE PRESENCE IN URINE Positive Abnormal Negative [facility] Comment on above: Performed By: #### L [id number] ####[facility] ([facility])[address] [place] [address] pH (U) 6.0 [pH] Normal 5.0-8.0 [facility] Comment on above: Performed By: #### L [id number] ####[facility] ([facility])[address] [place] [address] Protein (U) [Mass/Vol] 100 mg/dL Abnormal Negative [facility] Comment on above: Performed By: #### L [id number] ####[facility] ([facility])[address] [place] [address] Specific gravity (U) [Rel density] 1.012 Low 1.015-1.020 [facility] Comment on above: Performed By: #### L [id number] ####[facility] ([facility])[address] [place] [address] URINALYSIS MICROSCOPICon CASTS IN URINE Normal [facility] Comment on above: Performed By: #### L [id number] ####[facility] ([facility])[address] [place] [address] CRYSTALS IN URINE Normal [facility] Comment on above: Performed By: #### L [id number] ####[facility] ([facility])[address] [place] [address] MUCUS (#/HPF) IN URINE SEDIMENT Occasional Normal None Seen, Occasional, Few [facility] Comment on above: Performed By: #### L [id number] ####[facility] ([facility])[address] [place] [address] RBC (#/HPF) IN URINE SEDIMENT 11-20 Abnormal None Seen [facility] Comment on above: Performed By: #### L [id number] ####[facility] ([facility])[address] [place] [address] SQUAMOUS EPITHELIAL CELLS (#/HPF) IN URINE SEDIMENT Moderate Abnormal None Seen, Occasional [facility] Comment on above: Performed By: #### L [id number] ####[facility] ([facility])[address] [place] [address] WBC (LEUKOCYTE) (#/HPF) IN URINE SEDIMENT >100 Abnormal None Seen [facility] Comment on above: Performed By: #### L [id number] ####[facility] ([facility])[address] [place] [address] URINE CULTURE, ROUTINEon Bacteria identified Cx Nom (U) ESCHERICHIA COLI Abnormal [facility] Comment on above: Result Comment: >100 ,000 CFU/Ml Escherichia coli Susceptibility to Follow Performed By: #### L [id number] ####[facility] ([facility])[address] [place] [address] BILIRUBIN, DIRECTon 04-23-20 24 Magnesium [Mass/Vol] 0.0 mg/dL Normal 0-0.2 [facility] Comment on above: Performed By: #### L [id number] #### [facility] ([facility]) [address] [place] [address] CBC WITH AUTO DIFFERENTIALon 04-23-2024 Basophils (Bld) [#/Vol] 0.05 10*3/uL Normal 0.00-0.20 [facility] Comment on above: Performed By: #### L [id number] #### [facility] ([facility]) [address] [place] [address] Basophils/100 WBC (Bld) 0.6 % Normal 0.0-1.0 U [facility] Comment on above: Performed By: #### L [id number] #### [facility] ([facility]) [address] [place] [address] Eosinophils (Bld) [#/Vol] 0.17 10*3/uL Normal 0.00-0.50 [facility] Comment on above: Performed By: #### L [id number] #### [facility] ([facility]) [address] [place] [address] Eosinophils/100 WBC (Bld) 1.9 % Normal 0.0-6.0 [facility] Comment on above: Performed By: #### L [id number] #### [facility] ([facility]) [address] [place] [address] Erythrocyte distribution width (RBC) [Ratio] 15.7 % High 11.5-15.0 [facility] Comment on above: Performed By: #### L [id number] #### [facility] ([facility]) [address] [place] [address] ERYTHROCYTE MEAN CORPUSCULAR HEMOGLOBIN CONCENTRATION (G/DL) BY AUTOMATED 32.7 g/dL Normal 32.0-35.0 [facility] Comment on above: Performed By: #### L [id number] #### [facility] ([facility]) [address] [place] [address] Hematocrit (Bld) [Volume fraction] 39.2 % Normal 36.0-48.0 [facility] Comment on above: Performed By: #### L [id number] #### [facility] ([facility]) [address] [place] [address] Hemoglobin (Bld) [Mass/Vol] 12.8 g/dL Normal 12.0-15.0 [facility] Comment on above: Performed By: #### L [id number] #### [facility] ([facility]AKER) [address] [place] [address] Immature granulocytes (Bld) [#/Vol] 0.06 10*3/uL Normal 0.00-0.20 [facility] Comment on above: Performed By: #### L [id number] #### [facility] ([facility]) [address] [place] [address] Immature granulocytes/100 WBC (Bld) 0.7 % Normal 0.0-1.0 [facility] Comment on above: Performed By: #### L [id number] #### [facility] ([facility]ER) [address] [place] [address] Lymphocytes (Bld) [#/Vol] 1.27 10*3/uL Normal 1.20-4.00 [facility] Comment on above: Performed By: #### L [id number] #### [facility] HOSP[facility] ([facility]) [address] [place] [address] Lymphocytes/100 WBC (Bld) 14.5 % Low 20.0-45.0 [facility] Comment on above: Performed By: #### L [id number] #### [facility] ([facility]) [address] [place] [address] MCH (RBC) [Entitic mass] 27.7 pg Normal 27.0-33.0 [facility] Comment on above: Performed By: #### L [id number] #### [facility] ([facility]) [address] [place] [address] MCV (RBC) [Entitic vol] 84.8 fL Normal 82.0-98.0 U [facility] Comment on above: Performed By: #### L [id number] #### [facility] ([facility]) [address] [place] [address] Monocytes (Bld) [#/Vol] 0.40 10*3/uL Normal 0.10-1.00 [facility] Comment on above: Performed By: #### L [id number] #### [facility] ([facility]) [address] [place] [address] Monocytes/100 WBC (Bld) 4.6 % Low 5.0-12.0 U [facility] Comment on above: Performed By: #### L [id number] #### [facility] ([facility]) [address] [place] [address] Neutrophils (Bld) [#/Vol] 6.82 10*3/uL Normal 1.60-7.60 [facility] Comment on above: Performed By: #### L [id number] #### [facility] ([facility]AK[facility]) [address] [place] [address] Neutrophils/100 WBC (Bld) 77.7 % High 40.0-72.0 [facility] Comment on above: Performed By: #### L [id number] #### [facility] ([facility]) [address] [place] [address] NRBC (PER 100 WBCS) BY AUTOMATED COUNT 0.0 % Normal 0 [facility] Comment on above: Performed By: #### L [id number] #### [facility] ([facility]) [address] [place] [address] PLATELETS (10*3/UL) IN BLOOD AUTOMATED COUNT 337 10*3/uL Normal 150-400 [facility] Comment on above: Performed By: #### L [id number] #### [facility] ([facility]) [address] [place] [address] RBC (Bld) [#/Vol] 4.62 10*6/uL Normal 3.80-5.00 [facility] Comment on above: Performed By: #### L [id number] #### [facility] ([facility]) [address] [place] [address] WBC (Bld) [#/Vol] 8.77 10*3/uL Normal 4.00-10.60 [facility] Comment on above: Performed By: #### L [id number] #### [facility] ([facility]) [address] [place] [address] COMPREHENSIVE METABOLIC PANE Jonathan 04-23-2024 Albumin [Mass/Vol] 4.4 g/dL Normal 3.5-5.7 [facility] Comment on above: Performed By: #### L [id number] #### [facility] ([facility]) [address] [place] [address] ALP [Catalytic activity/Vol] 74 U/L Normal 34-104 [facility] Comment on above: Performed By: #### L [id number] #### [facility] (BEAKER) [address] [place] [address] ALT [Catalytic activity/Vol] 9 U/L Normal 7-52 [facility] Comment on above: Performed By: #### L [id number] #### [facility] (BEAKER) [address] [place] [address] Anion gap [Moles/Vol] 13 mmol/L Normal 7-20 [facility] Comment on above: Performed By: #### L [id number] #### [facility] (BEAKER) [address] [place] [address] AST [Catalytic activity/Vol] 14 U/L Normal 13-39 [facility] Comment on above: Performed By: #### L [id number] #### [facility] (BEAKER) [address] [place] [address] Bilirubin [Mass/Vol] 0.4 mg/dL Normal 0.3-1.0 [facility] Comment on above: Performed By: #### L [id number] #### [facility] (BEAKER) [address] [place] [address] Calcium [Mass/Vol] 9.4 mg/dL Normal 8.6-10.3 [facility] Comment on above: Performed By: #### L [id number] #### [facility] (BEAKER) [address] [place] [address] Chloride [Moles/Vol] 104 mmol/L Normal 98-107 [facility] Comment on above: Performed By: #### L [id number] #### [facility] (BEAKER) [address] [place] [address] CO2 [Moles/Vol] 25 mmol/L Normal 21-31 [facility] Comment on above: Performed By: #### L [id number] #### [facility] (BEAKER) [address] [place] [address] Creatinine [Mass/Vol] 1.09 mg/dL Normal 0.60-1.20 [facility] Comment on above: Performed By: #### L [id number] #### [facility] (BEAKER) [address] [place] [address] GLOMERULAR FILTRATION RATE ML/MIN/1.73 SQ M.PREDICTED 62.7 mL/min/1.73m*2 Normal >60.0 [facility] Comment on above: Result Comment: [facility]???s estimated glomerular filtration rate (eGFR) will [...] individuals. Performed By: #### L [id number] #### [facility] ([facility]) [address] [place] [address] Glucose [Mass/Vol] 108 mg/dL High 70-100 [facility] Comment on above: Performed By: #### L [id number] #### [facility] ([facility]) [address] [place] [address] Potassium [Moles/Vol] 3.5 mmol/L Normal 3.5-5.1 [facility] Comment on above: Performed By: #### L [id number] #### [facility] ([facility]) [address] [place] [address] Protein [Mass/Vol] 7.6 g/dL Normal 6.0-8.3 [facility] Comment on above: Performed By: #### L [id number] #### [facility] ([facility]) [address] [place] [address] Sodium [Moles/Vol] 138 mmol/L Normal 136-145 [facility] Comment on above: Performed By: #### L [id number] #### [facility] ([facility]) [address] [place] [address] Urea nitrogen [Mass/Vol] 13 mg/dL Normal 7-25 [facility] Comment on above: Performed By: #### L [id number] #### [facility] ([facility]) [address] [place] [address] UREA NITROGEN/CREATININE (MASS RATIO) IN SER/PLAS 11.9 Normal [facility] Comment on above: Performed By: #### L [id number] #### [facility] ([facility]) [address] [place] [address] HEMOGLOBIN A1Con 04-23-2024 Glucose [Mass/Vol] 105 mg/dL Normal [facility] Comment on above: Performed By: #### L [id number] #### [facility] ([facility]) [address] [place] [address] HbA1c (Bld) [Mass fraction] 5.3 % Normal 4.0-6.0 [facility] Comment on above: Performed By: #### L [id number] #### [facility] ([facility]) [address] [place] [address] LIPID PANELon 04-23-2024 CHOL/HDL 4.0 mg/dL Normal [facility] Comment on above: Performed By: #### L [id number] #### [facility] ([facility]) [address] [place] [address] Cholesterol [Mass/Vol] 182 mg/dL Normal 120-200 [facility] Comment on above: Performed By: #### L [id number] #### [facility] ([facility]) [address] [place] [address] Magnesium [Mass/Vol] 166 mg/dL High 40-149 [facility] Comment on above: Result Comment: TRIG LYCERIDE REFERENCE RANGE: 20 YEARS AND OLDER CARDIOVASCULAR RISK LESS THAN 150 mg/dL LOW RISK 150 TO 199 mg/dL BORDERLINE RISK 200 mg/dL AND GREATER HIGH RISK Performed By: #### L [id number] #### [facility] ([facility]) [address] [place] [address] Magnesium [Mass/Vol] 103 mg/dL Normal 0-160 [facility] Comment on above: Performed By: #### L [id number] #### [facility] ([facility]) [address] [place] [address] Magnesium [Mass/Vol] 46 mg/dL Normal 23-92 [facility] Comment on above: Performed By: #### L [id number] #### [facility] ([facility]) [address] [place] [address] NON HDL CHOL. (LDL+VLDL) 136 Normal [facility] Comment on above: Performed By: #### L [id number] #### [facility] ([facility]) [address] [place] [address] TOTAL VLDL-C 33 mg/dL Normal 0-40 [facility] Comment on above: Performed By: #### L [id number] #### [facility] ([facility]) [address] [place] [address] Labon 04-23-2024 Lab [id number] Antonio Puri i 1975 F Date Provider Department Center 04/23/2024 2245-[facility] OPD LAB RESOURCE [facility] OPD [facility] Family History Problem Relation Age of Onset Fibromyalgia Mother Heart disease Father Hypertension Sister Polycystic kidney disease Sister Hypertension Brother Polycystic kidney disease Brother Family Status - Relation Status Age at Mother Father Sister Brother Normal [facility] MAGNESIUMon 04-23-2024 Magnesium [Mass/Vol] 1.8 mg/dL Low 1.9-2.7 [facility] Comment on above: Performed By: #### L [id number] #### [facility] ([facility]) [address] [place] [address] PHOSPHORUSon 04-23-2024 Magnesium [Mass/Vol] 2.8 mg/dL Normal 2.5-5.0 [facility] Comment on above: Performed By: #### L [id number] #### [facility] ([facility]) [address] [place] [address] TACROLIMUS LEVELon Tacrolimus (Bld) [Mass/Vol] 10.5 ng/mL Normal 5.0-20.0 [facility] Comment on above: Result Comment: The MARCELO [employer]TER Tacrolimus assay is a delayed one-step immunoassay for the quantitative determination of tacrolimus in human whole blood using the chemiluminescent microparticle immunoassay (CMIA) technology with flexible assay protocols, referred to as Chemiflex. Performed By: #### L [id number] ####[facility] ([facility])[address] [place] [address] URIC ACIDon 04-23-2024 Magnesium [Mass/Vol] 4.0 mg/dL Normal 2.3-6.6 [facility] Comment on above: Performed By: #### L [id number] #### [facility] ([facility]) [address] [place] [address] URINALYSISon 04-23-2024 BILIRUBIN, TOTAL PRESENCE IN URINE Negative Normal Negative [facility] Comment on above: Performed By: #### L [id number] #### [facility] ([facility]) [address] [place] [address] Clarity (U) Cloudy Abnormal Clear [facility] Comment on above: Performed By: #### L [id number] #### [facility] ([facility]) [address] [place] [address] Color (U) Yellow Normal Yellow [facility] Comment on above: Performed By: #### L [id number] #### [facility] ([facility]) [address] [place] [address] Glucose (U) [Mass/Vol] Negative Normal Negative Un [facility] Comment on above: Performed By: #### L [id number] #### [facility] ([facility]) [address] [place] [address] HEMOGLOBIN PRESENCE IN URINE Negative Normal Negative [facility] Comment on above: Performed By: #### L [id number] #### [facility] ([facility]) [address] [place] [address] Ketones Ql (U) Negative Normal Negative [facility] Comment on above: Performed By: #### L [id number] #### [facility] ([facility]) [address] [place] [address] LEUKOCYTE ESTERASE PRESENCE IN URINE BY TEST STRIP Negative Normal Negative [facility] Comment on above: Performed By: #### L [id number] #### [facility] ([facility]) [address] [place] [address] NITRITE PRESENCE IN URINE Negative Normal Negative [facility] Comment on above: Performed By: #### L [id number] #### [facility] ([facility]) [address] [place] [address] pH (U) 7.0 [pH] Normal 5.0-8.0 [facility] Comment on above: Performed By: #### L AB52 #### [facility] ([facility]) [address] [place] [address] Protein (U) [Mass/Vol] Negative Normal Negative Un [facility] Comment on above: Performed By: #### L [id number] #### [facility] ([facility]) [address] [place] [address] Specific gravity (U) [Rel density] 1.011 Low 1.015-1.020 [facility] Comment on above: Performed By: #### L [id number] #### [facility] ([facility]) [address] [place] [address] URINALYSIS MICROSCOPICon AMORPHOUS CRYSTALS (#/HPF) IN URINE Few Abnormal None Seen [facility] Comment on above: Performed By: #### L AB52 #### [facility] ([facility]) [address] [place] [address] CASTS IN URINE Normal [facility] Comment on above: Performed By: #### L AB52 #### [facility] ([facility]) [address] [place] [address] CRYSTALS IN URINE Normal [facility] Comment on above: Performed By: #### L [id number] #### [facility] ([facility]) [address] [place] [address] MUCUS (#/HPF) IN URINE SEDIMENT Occasional Normal None Seen, Occasional, Few [facility] Comment on above: Performed By: #### L AB52 #### [facility] ([facility]) [address] [place] [address] RBC (#/HPF) IN URINE SEDIMENT 3-5 Abnormal None Seen [facility] Comment on above: Performed By: #### L [id number] #### [facility] ([facility]) [address] [place] [address] SQUAMOUS EPITHELIAL CELLS (#/HPF) IN URINE SEDIMENT Many Abnormal None Seen, Occasional [facility] Comment on above: Performed By: #### L AB52 #### [facility] ([facility]) [address] [place] [address] WBC (LEUKOCYTE) (#/HPF) IN URINE SEDIMENT 3-5 Abnormal None Seen [facility] Comment on above: Performed By: #### L AB52 #### [facility] ([facility]) [address] [place] [address] URINE CULTURE, ROUTINEon Bacteria identified Cx Nom (U) <10,000 CFU/ML No Significant Growth Normal [facility] Comment on above: Performed By: #### L [id number] ####[facility] ([facility])[address] [place] [address] US RENAL COMPLETEon 04-14-20 24 US RENAL COMPLETE EXAM: Renal Ultrasou nd with Doppler: REASON FOR EXAM: Polycystic kidneys. COMPARISON: None. TECHNIQUE: Real-time ultrasonographic evaluation of the kidneys is performed with color flow Doppler. FINDINGS: There is a transplanted right kidney. Right kidney: Numerous [place] right renal cysts. No hydronephrosis. Left kidney: Numerous [place] left renal cysts. No hydronephrosis. Uniform and [...] report is generated using voice recognition reporting (WebRadar). On occasion Magnomaticse erroneously drops words from the report or replaces the spoken word with similar sounding words. Please call with any questions/concerns regarding this report.* Dictated and transcribed 04/14/2024/heriberto This report has been electronically signed and approved by the interpreting radiologist. Electronically Signed René Raymond M.D. 2024-04-14 16:31:56 Normal Not Available Urine Cultureon 03-15-2024 Bacteria identified Cx Nom (U) ORGANISM: Escherichia coli (MDRO) (O:ESCCOLMDRO) Moro Count >100,000 Aerobic CODI Charge (NMIC56) - [...] RESISTANT TO ALL B-LACTAM DRUGS. PERFORMED BY: [place] [address] PATHOLOGIST COST CONTROLLER ANAHY MCKEE M.D. Normal [facility] Comment on above: Performed By: #### C UU #### [place] [id number] [facility] Documentationon 03-03-2024 Documentation [id number] Antonio Puri i 1975 F Date Provider Department Center 03/03/2024 750-JOSE RAFAEL GAVIRIA TXP None Family History Problem Relation Age of Onset Fibromyalgia Mother Heart disease Father Hypertension Sister Polycystic kidney disease Sister Hypertension Brother Polycystic kidney disease Brother Family Status - Relation Status Age at Mother Father Sister Brother Normal [facility] Follow-Upon 12-23-2023 Follow-Up [id number] Antonio Puri i 1975 F Date Provider Department Center 12/23/2023 124-MUNIRA PHAN TXP None Family History Problem Relation Age of Onset Fibromyalgia Mother Heart disease Father Hypertension Sister Polycystic kidney disease Sister Hypertension Brother Polycystic kidney disease Brother Family Status - Relation Status Age at Mother Father Sister Brother Level of Service:67967 DC OFFICE/OUTPATIENT ESTABLISHED MOD MDM 30 MIN Reason for Visit and Comments: Kidney Follow-up [] - Pt has questions about her lab work. Normal [facility] PAPITO Antinuclear Antibodieson 11-06-2023 Antinuclear Abs, IFA Negative Normal . [facility] Comment on above: Result Comment: Nega tive <1:80 Borderline 1:80 Positive >1:80 ICAP nomenclature: AC-0 For more information about Hep-2 cell patterns use ANApatterns.org, the official website for the International Consensus on Antinuclear Antibody (PAPITO) Patterns (ICAP). Performed at: - [address] [id number] [employer]: Gabriel Whitman PhD, Phone: [phone] PERFORMED BY: [address] [address] PATHOLOGIST COST CONTROLLER ANAHY MCKEE M.D. Performed By: #### C BC, CMP, CK, CRP, ESR ####[facility] [place] [address] [place]#### PAPITO ####[facility] , Alanine aminotransferase [En zymatic activity/volume] in Serum or PlasmaOrdered By: Perri Ceja on 11-06-2023 ALT [Catalytic activity/Vol] 20 U/L Normal 7-52 [facility] Comment on above: Performed By: #### C BC, CMP, CK, CRP, ESR ####[facility] [place] [address] [place]#### PAPITO ####[facility] , Albumin [Mass/volume] in Ser um or Plasma by Bromocresol green (BCG) dye binding methoOrdered By: Perri Ceja on 11-06-2023 Albumin BCG dye [Mass/Vol] 4.7 g/dL 3.5-5.7 [facility] Alkaline phosphatase [Enzyma tic activity/volume] in Serum or PlasmaOrdered By: Perri Ceja on 11-06-2023 ALP [Catalytic activity/Vol] 96 U/L Normal 34-104 [facility] Comment on above: Performed By: #### C BC, CMP, CK, CRP, ESR ####[place] [address] [place]#### PAPITO ####[facility] , Aspartate aminotransferase [ Enzymatic activity/volume] in Serum or PlasmaOrdered By: Perri Ceja on 11-06-2023 AST [Catalytic activity/Vol] 16 U/L Normal 13-39 [facility] Comment on above: Performed By: #### C BC, CMP, CK, CRP, ESR ####[place] [address] [place] [address] [place]#### PAPITO ####[facility] , Automated basophil %Ordered By: Perri Ceja on 11-06-2023 Basophils/100 WBC (Bld) 0.7 % Normal . [facility] Comment on above: Performed By: #### C BC, CMP, CK, CRP, ESR ####[address]#### PAPITO ####[facility] , Automated basophil countOrde red By: Perri Ceja on 11-06-2023 Basophils (Bld) [#/Vol] 0.1 10*3/uL Normal 0.0-0.2 [facility] Comment on above: Performed By: #### C BC, CMP, CK, CRP, ESR ####[place] [address] [place]#### PAPITO ####[facility] , Automated blood monocyte cou ntOrdered By: Perri Ceja on 11-06-2023 Monocytes (Bld) [#/Vol] 0.6 10*3/uL Normal 0.0-0.8 [facility] Comment on above: Performed By: #### C BC, CMP, CK, CRP, ESR ####[address]#### PAPITO ####[facility] , Automated eosinophil %Ordere d By: Perri Ceja on 11-06-2023 Eosinophils/100 WBC (Bld) 3.0 % Normal . [facility] Comment on above: Performed By: #### C BC, CMP, CK, CRP, ESR ####[address]#### PAPITO ####[facility] , Automated eosinophil countOr dered By: Perri Ceja on 11-06-2023 Eosinophils (Bld) [#/Vol] 0.3 10*3/uL Normal 0.0-0.45 [facility] Comment on above: Performed By: #### C BC, CMP, CK, CRP, ESR ####[place] [address] [place]#### PAPITO ####[facility] , Automated monocyte %Ordered By: Perri Ceja on 11-06-2023 Monocytes/100 WBC (Bld) 6.6 % Normal . [facility] Comment on above: Performed By: #### C BC, CMP, CK, CRP, ESR ####[place] [address] [place] [id number] [place]#### PAPITO ####[facility] , Automated neutrophil %Ordere d By: Perri Ceja on 11-06-2023 Neutrophils/100 WBC (Bld) 72.1 % Normal . [facility] Comment on above: Performed By: #### C BC, CMP, CK, CRP, ESR ####[place] [address] [place]#### PAPITO ####[facility] , Bilirubin.total [Mass/volume ] in Serum or PlasmaOrdered By: Perri Ceja on 11-06-2023 Bilirubin [Mass/Vol] 0.4 mg/dL Normal 0.3-1.0 [facility] Comment on above: Performed By: #### C BC, CMP, CK, CRP, ESR ####[place] [address] [place]#### PAPITO ####[facility] , C reactive protein [Mass/vol ume] in Serum or PlasmaOrdered By: Perri Ceja on 11-06-2023 CRP [Mass/Vol] 2.0 mg/dL 0.0-0.5 [facility] C-Reactive Proteinon 024 C-Reactive Protein 2.0 mg/dL High 0.0-0.5 [facility] Comment on above: Result Comment: PERF ORMED BY: [facility] [address] [place] [address] PATHOLOGIST COST CONTROLLER ANAHY MCKEE M.D. Performed By: #### C BC, CMP, CK, CRP, ESR ####[place] [id number] [place]#### PAPITO ####[facility] , Calcium [Mass/volume] in Ser um or PlasmaOrdered By: Perri Ceja on 11-06-2023 Calcium [Mass/Vol] 10.3 mg/dL Normal 8.6-10.3 [facility] Comment on above: Performed By: #### C BC, CMP, CK, CRP, ESR ####[address]#### PAPITO ####[facility] , Carbon dioxide, total [Moles /volume] in Serum or PlasmaOrdered By: Perri Ceja on 11-06-2023 CO2 [Moles/Vol] 26.1 mmol/L Normal 21.0-31.0 [facility] Comment on above: Performed By: #### C BC, CMP, CK, CRP, ESR ####[address]#### PAPITO ####[facility] , Chloride [Moles/volume] in S aislinn or PlasmaOrdered By: Perri Ceja on 11-06-2023 Chloride [Moles/Vol] 104 mmol/L Normal 98-107 [facility] Comment on above: Performed By: #### C BC, CMP, CK, CRP, ESR ####[address]#### PAPITO ####[facility] , Complete Blood Count Auto Di ffon 11-06-2023 Mean Corpuscular HGB Conc 33.6 g/dL Normal 32.0-35.0 [facility] Comment on above: Performed By: #### C BC, CMP, CK, CRP, ESR ####[place] [address] [place]#### PAPITO ####[facility] , NRBC% 0.1 /100{WBC} Normal 0-0.5 [facility] Comment on above: Performed By: #### C BC, CMP, CK, CRP, ESR ####[place] [address] [place]#### PAPITO ####[facility] , Comprehensive Metabolic Pane jonathan 11-06-2023 Albumin [Mass/Vol] 4.7 g/dL Normal 3.5-5.7 [facility] Comment on above: Performed By: #### C BC, CMP, CK, CRP, ESR ####[place] [address]#### PAPITO ####[facility] , GFR/1.73 sq M.predicted MDRD (S/P/Bld) [Vol rate/Area] 57.919 mL/min/{1.73_m2} Normal [facility] Comment on above: Performed By: #### C BC, CMP, CK, CRP, ESR ####[address]#### PAPITO ####[facility] , Creatine kinase [Enzymatic a ctivity/volume] in Serum or PlasmaOrdered By: Perri Ceja on 11-06-2023 CK [Catalytic activity/Vol] 30 U/L Normal 30-223 [facility] Comment on above: Result Comment: PERF ORMED BY: [facility] [address] [place] [address] PATHOLOGIST COST CONTROLLER ANAHY MCKEE M.D. Performed By: #### C BC, CMP, CK, CRP, ESR ####[address]#### PAPITO ####[facility] , Creatinine [Mass/volume] in Serum or PlasmaOrdered By: Perri Ceja on 11-06-2023 Creatinine [Mass/Vol] 1.17 mg/dL Normal 0.60-1.20 [facility] Comment on above: Performed By: #### C BC, CMP, CK, CRP, ESR ####[address]#### PAPITO ####[facility] , Erythrocyte Sedimentation Ra mathieu 11-06-2023 ESR (Bld) [Velocity] 49 mm/h High 0-19 [facility] Comment on above: Result Comment: PERF ORMED BY: [facility] [address] [place] [address] PATHOLOGIST COST CONTROLLER ANAHY MCKEE M.D. Performed By: #### C BC, CMP, CK, CRP, ESR ####[place] [address]#### PAPITO ####[facility] , Erythrocyte distribution wid th [Ratio] by Automated countOrdered By: Perri Ceja on 11-06-2023 Erythrocyte distribution width (RBC) [Ratio] 15.3 % Normal 11.9-15.3 [facility] Comment on above: Performed By: #### C BC, CMP, CK, CRP, ESR ####[address]#### PAPITO ####[facility] , Erythrocyte sedimentation ra te by Photometric methodOrdered By: Perri Ceja on 11-06-2023 ESR Photometric method (Bld) [Velocity] 49 mm/hr 0-19 [facility] Erythrocytes [#/volume] in B lood by Automated countOrdered By: Perri Ceja on 11-06-2023 RBC (Bld) [#/Vol] 4.60 10*6/uL Normal 3.60-5.00 [facility] Comment on above: Performed By: #### C BC, CMP, CK, CRP, ESR ####[address]#### PAPITO ####[facility] , Glucose [Mass/volume] in Ser um or PlasmaOrdered By: Perri Ceja on 11-06-2023 Glucose [Mass/Vol] 91 mg/dL Normal 70-100 [facility] Comment on above: ADA recommended refe rence rangeRandom Glucose Reference Range is dependent on time and content of last meal. Glucose of more than 200 mg/dL in a nonstressed, ambulatory subject supports the diagnosis of Diabetes Mellitus. Result Comment: [facility] Glucose Reference Range is dependent on time and content of last meal. Glucose of more than 200 mg/dL in a nonstressed, ambulatory subject supports the diagnosis of Diabetes Mellitus. ADA recommended reference range Performed By: #### C BC, CMP, CK, CRP, ESR ####[address]#### PAPITO ####[facility] , Hematocrit [Volume Fraction] of Blood by Automated countOrdered By: Perri Ceja on 11-06-2023 Hematocrit (Bld) [Volume fraction] 38.9 % Normal 34.0-46.4 [facility] Comment on above: Performed By: #### C BC, CMP, CK, CRP, ESR ####[address]#### PAPITO ####[facility] , Hemoglobin [Mass/volume] in BloodOrdered By: Perri Ceja on 11-06-2023 Hemoglobin (Bld) [Mass/Vol] 13.1 g/dL Normal 11.8-15.4 [facility] Comment on above: Performed By: #### C BC, CMP, CK, CRP, ESR ####[address]#### PAPITO ####[facility] , Leukocytes [#/volume] correc noah for nucleated erythrocytes in Blood by Automated counOrdered By: Perri Ceja on 11-06-2023 WBC corrected for nucl RBC Auto (Bld) [#/Vol] 8.8 10*3/uL 3.8-11.6 [facility] Leukocytes [#/volume] in Blo od by Automated countOrdered By: Perri Ceja on 11-06-2023 WBC (Bld) [#/Vol] 8.8 10*3/uL Normal 3.8-11.6 [facility] Comment on above: Performed By: #### C BC, CMP, CK, CRP, ESR ####[place] [address] [place]#### PAPITO ####[facility] , Lymphocytes [#/volume] in Bl ood by Automated countOrdered By: Perri Ceja on 11-06-2023 Lymphocytes (Bld) [#/Vol] 1.5 10*3/uL Normal 1.00-4.8 [facility] Comment on above: Performed By: #### C BC, CMP, CK, CRP, ESR ####[address]#### PAPITO ####[facility] , Lymphocytes/100 leukocytes i n Blood by Automated countOrdered By: Perri Ceja on 11-06-2023 Lymphocytes/100 WBC (Bld) 17.6 % Normal . [facility] Comment on above: Performed By: #### C BC, CMP, CK, CRP, ESR ####[address]#### PAPITO ####[facility] , MCH [Entitic mass] by Automa noah countOrdered By: Perri Ceja on 11-06-2023 MCH (RBC) [Entitic mass] 28.4 pg Normal 24.7-34.3 [facility] Comment on above: Performed By: #### C BC, CMP, CK, CRP, ESR ####[address]#### PAPITO ####[facility] , MCHC Auto (RBC) [Mass/Vol]Or dered By: Perri Ceja on 11-06-2023 MCHC (RBC) [Mass/Vol] 33.6 g/dL 32.0-35.0 [facility] MCV [Entitic volume] by Auto mated countOrdered By: Perri Ceja on 11-06-2023 MCV (RBC) [Entitic vol] 84.6 fL Normal 80-100 [facility] Comment on above: Performed By: #### C BC, CMP, CK, CRP, ESR ####[place] [id number] [place]#### PAPITO ####[facility] , Neutrophils [#/volume] in Bl ood by Automated countOrdered By: Perri Ceja on 11-06-2023 Neutrophils (Bld) [#/Vol] 6.3 10*3/uL Normal 1.8-7.7 [facility] Comment on above: Performed By: #### C BC, CMP, CK, CRP, ESR ####[address]#### PAPITO ####[facility] , No Panel InformationOrdered By: Perri Ceja on 11-06-2023 Estimated GFR (CKD-EPI) 57.919 mL/Min [facility] Creatinine Clearance (Chem N/A [facility] Nucleated erythrocytes [Pres ence] in Blood by Automated countOrdered By: Perri Ceja on 11-06-2023 Nucleated RBC Auto Ql (Bld) 0.1 /100{WBC} 0-0.5 [facility] Platelet mean volume [Entiti c volume] in Blood by Automated countOrdered By: Perri Ceja on 11-06-2023 Platelet mean volume (Bld) [Entitic vol] 6.9 fL Normal 6.3-10.7 [facility] Comment on above: Performed By: #### C BC, CMP, CK, CRP, ESR ####[place] [address] [place]#### PAPITO ####[facility] , Platelets [#/volume] in Bloo d by Automated countOrdered By: Perri Ceja on 11-06-2023 Platelets (Bld) [#/Vol] 393 10*3/uL Normal 150-450 [facility] Comment on above: Performed By: #### C BC, CMP, CK, CRP, ESR ####[address]#### PAPITO ####[facility] , Potassium [Moles/volume] in Serum or PlasmaOrdered By: Perri Ceja on 11-06-2023 Potassium [Moles/Vol] 3.8 mmol/L Normal 3.5-5.1 [facility] Comment on above: Performed By: #### C BC, CMP, CK, CRP, ESR ####[place] [id number]#### PAPITO ####[facility] , Protein [Mass/volume] in Ser um or PlasmaOrdered By: Perri Ceja on 11-06-2023 Protein [Mass/Vol] 7.7 g/dL Normal 6.4-8.9 [facility] Comment on above: Performed By: #### C BC, CMP, CK, CRP, ESR ####[address]#### PAPITO ####[facility] , Serum globulin measurement b y calculation (mass/volume)Ordered By: Perri Ceja on 11-06-2023 Globulin (S) [Mass/Vol] 3.0 g/dL Normal [facility] Comment on above: Performed By: #### C BC, CMP, CK, CRP, ESR ####[place] [address] [place]#### PAPITO ####[facility] , Serum or plasma albumin/glob ulin mass ratioOrdered By: Perri Ceja on 11-06-2023 Albumin/Globulin [Mass ratio] 1.6 {ratio} Normal [facility] Comment on above: Performed By: #### C BC, CMP, CK, CRP, ESR ####[place] [address] [place] [address] [place]#### PAPITO ####[facility] , Serum or plasma anion gap de terminationOrdered By: Perri Ceja on 11-06-2023 Anion gap [Moles/Vol] 12.7 mmol/L Normal 6.0-15.0 [facility] Comment on above: Performed By: #### C BC, CMP, CK, CRP, ESR ####[facility] [id number] [place] [address] [place]#### PAPITO ####[facility] , Sodium [Moles/volume] in Ser um or PlasmaOrdered By: Perri Ceja on 11-06-2023 Sodium [Moles/Vol] 139 mmol/L Normal 136-145 [facility] Comment on above: Performed By: #### C BC, CMP, CK, CRP, ESR ####[facility] [id number] [place] [address] [place]#### PAPITO ####[facility] , Urea nitrogen [Mass/volume] in Serum or PlasmaOrdered By: Perri Ceja on 11-06-2023 Urea nitrogen [Mass/Vol] 17 mg/dL Normal 7-25 [facility] Comment on above: Performed By: #### C BC, CMP, CK, CRP, ESR ####[facility]#### PAPITO ####[facility] , Orders Onlyon 10-02-2023 Orders Only [id number] Antonio Puri i 1975 Date Provider Department Center 10/02/2023 1971-LU STEPHENS TXP None Family History Problem Relation Age of Onset Fibromyalgia Mother Heart disease Father Hypertension Sister Polycystic kidney disease Sister Hypertension Brother Polycystic kidney disease Brother Family Status - Relation Status Age at Mother Father Sister Brother [facility] Follow-Upon 09-01-2023 Follow-Up [id number] Antonio Puri i 1975 Date Provider Department Center 09/01/2023 344-SUJIT BERNAL TXP None Family History Problem Relation Age of Onset Fibromyalgia Mother Heart disease Father Hypertension Sister Polycystic kidney disease Sister Hypertension Brother Polycystic kidney disease Brother Family Status - Relation Status Age at Mother Father Sister Brother Level of Service:23763 DC OFFICE/OUTPATIENT ESTABLISHED MOD MDM 30-39 MIN () Reason for Visit and Comments: Kidney Follow-up [] - Patient reports pain all over her body that comes and goes. She would like to discuss swelling in her feet. Normal [facility] BILIRUBIN, DIRECTon 08-26-20 Magnesium [Mass/Vol] 0.1 mg/dL Normal 0-0.2 [facility] Comment on above: Performed By: #### L [id number] #### [facility] ([facility]) [address] [place] [address] CBC WITH AUTO DIFFERENTIALon 08-26-2023 Basophils (Bld) [#/Vol] 0.05 10*3/uL Normal 0.00-0.20 [facility] Comment on above: Performed By: #### L [id number] #### [facility] ([facility]) [address] [place] [address] Basophils/100 WBC (Bld) 0.6 % Normal 0.0-1.0 [facility] Comment on above: Performed By: #### L [id number] #### [facility] ([facility]) [address] [place] [address] Eosinophils (Bld) [#/Vol] 0.20 10*3/uL Normal 0.00-0.50 [facility] Comment on above: Performed By: #### L [id number] #### [facility] ([facility]) [address] [place] [address] Eosinophils/100 WBC (Bld) 2.5 % Normal 0.0-6.0 [facility] Comment on above: Performed By: #### L [id number] #### [facility] ([facility]) [address] [place] [address] Erythrocyte distribution width (RBC) [Ratio] 14.4 % Normal 11.5-15.0 [facility] Comment on above: Performed By: #### L [id number] #### [facility] ([facility]) [address] [place] [address] ERYTHROCYTE MEAN CORPUSCULAR HEMOGLOBIN CONCENTRATION (G/DL) BY AUTOMATED 32.9 g/dL Normal 32.0-35.0 [facility] Comment on above: Performed By: #### L [id number] #### [facility] ([facility]) [address] [place] [address] Hematocrit (Bld) [Volume fraction] 40.4 % Normal 36.0-48.0 [facility] Comment on above: Performed By: #### L [id number] #### [facility] ([facility]) [address] [place] [address] Hemoglobin (Bld) [Mass/Vol] 13.3 g/dL Normal 12.0-15.0 [facility] Comment on above: Performed By: #### L [id number] #### [facility] ([facility]) [address] [place] [address] Immature granulocytes (Bld) [#/Vol] 0.06 10*3/uL Normal 0.00-0.20 [facility] Comment on above: Performed By: #### L [id number] #### [facility] ([facility]) [address] [place] [address] Immature granulocytes/100 WBC (Bld) 0.7 % Normal 0.0-1.0 [facility] Comment on above: Performed By: #### L [id number] #### [facility] ([facility]) [address] [place] [address] Lymphocytes (Bld) [#/Vol] 1.19 10*3/uL Low 1.20-4.00 [facility] Comment on above: Performed By: #### L [id number] #### [facility] ([facility]) [address] [place] [address] Lymphocytes/100 WBC (Bld) 14.6 % Low 20.0-45.0 [facility] Comment on above: Performed By: #### L [id number] #### [facility] ([facility]) [address] [place] [address] MCH (RBC) [Entitic mass] 28.4 pg Normal 27.0-33.0 [facility] Comment on above: Performed By: #### L [id number] #### [facility] ([facility]) [address] [place] [address] MCV (RBC) [Entitic vol] 86.1 fL Normal 82.0-98.0 [facility] Comment on above: Performed By: #### L [id number] #### [facility] ([facility]) [address] [place] [address] Monocytes (Bld) [#/Vol] 0.42 10*3/uL Normal 0.10-1.00 [facility] Comment on above: Performed By: #### L [id number] #### [facility] ([facility]) [address] [place] [address] Monocytes/100 WBC (Bld) 5.2 % Normal 5.0-12.0 [facility] Comment on above: Performed By: #### L [id number] #### [facility] ([facility]) [address] [place] [address] Neutrophils (Bld) [#/Vol] 6.22 10*3/uL Normal 1.60-7.60 [facility] Comment on above: Performed By: #### L [id number] #### [facility] ([facility]) [address] [place] [address] Neutrophils/100 WBC (Bld) 76.4 % High 40.0-72.0 [facility] Comment on above: Performed By: #### L [id number] #### [facility] ([facility]) [address] [place] [address] NRBC (PER 100 WBCS) BY AUTOMATED COUNT 0.0 % Normal 0 [facility] Comment on above: Performed By: #### L [id number] #### [facility] ([facility]) [address] [place] [address] PLATELETS (10*3/UL) IN BLOOD AUTOMATED COUNT 374 10*3/uL Normal 150-400 [facility] Comment on above: Performed By: #### L [id number] #### [facility] ([facility]) [address] [place] [address] RBC (Bld) [#/Vol] 4.69 10*6/uL Normal 3.80-5.00 [facility] Comment on above: Performed By: #### L [id number] #### [facility] ([facility]) [address] [place] [address] WBC (Bld) [#/Vol] 8.14 10*3/uL Normal 4.00-10.60 [facility] Comment on above: Performed By: #### L [id number] #### [facility] ([facility]) [address] [place] [address] [address] [facility] 08-26-2023 Albumin [Mass/Vol] 4.7 g/dL Normal 3.5-5.7 [facility] Comment on above: Performed By: #### L [id number] #### [facility] ([facility]) [address] [place] [address] ALP [Catalytic activity/Vol] 90 U/L Normal 34-104 [facility] Comment on above: Performed By: #### L [id number] #### [facility] ([facility]) [address] [place] [address] ALT [Catalytic activity/Vol] 26 U/L Normal 7-52 [facility] Comment on above: Performed By: #### L [id number] #### [facility] ([facility]) [address] [place] [address] Anion gap [Moles/Vol] 12 mmol/L Normal 7-20 [facility] Comment on above: Performed By: #### L [id number] #### [facility] ([facility]) [address] [place] [address] AST [Catalytic activity/Vol] 22 U/L Normal 13-39 [facility] Comment on above: Performed By: #### L [id number] #### [facility] ([facility]) [address] [place] [address] Bilirubin [Mass/Vol] 0.4 mg/dL Normal 0.3-1.0 [facility] Comment on above: Performed By: #### L [id number] #### [facility] ([facility]) [address] [place] [address] Calcium [Mass/Vol] 9.6 mg/dL Normal 8.6-10.3 [facility] Comment on above: Performed By: #### L [id number] #### [facility] ([facility]) [address] [place] [address] Chloride [Moles/Vol] 103 mmol/L Normal 98-107 [facility] Comment on above: Performed By: #### L [id number] #### [facility] ([facility]) [address] [place] [address] CO2 [Moles/Vol] 26 mmol/L Normal 21-31 [facility] Comment on above: Performed By: #### L [id number] #### [facility] ([facility]) [address] [place] [address] Creatinine [Mass/Vol] 1.12 mg/dL Normal 0.60-1.20 [facility] Comment on above: Performed By: #### L [id number] #### [facility] ([facility]) [address] [place] [address] GLOMERULAR FILTRATION RATE ML/MIN/1.73 SQ M.PREDICTED 61.0 mL/min/1.73m*2 Normal >60.0 [facility] Comment on above: Result Comment: [facility]???s estimated glomerular filtration rate (eGFR) will [...] individuals. Performed By: #### L [id number] #### [facility] ([facility]) [address] [place] [address] Glucose [Mass/Vol] 125 mg/dL High 70-100 [facility] Comment on above: Performed By: #### L [id number] #### [facility] ([facility]) [address] [place] [address] Potassium [Moles/Vol] 3.1 mmol/L Low 3.5-5.1 [facility] Comment on above: Performed By: #### L [id number] #### [facility] ([facility]) [address] [place] [address] Protein [Mass/Vol] 7.4 g/dL Normal 6.0-8.3 [facility] Comment on above: Performed By: #### L [id number] #### [facility] ([facility]) [address] [place] [address] Sodium [Moles/Vol] 138 mmol/L Normal 136-145 [facility] Comment on above: Performed By: #### L [id number] #### [facility] ([facility]) [address] [place] [address] Urea nitrogen [Mass/Vol] 15 mg/dL Normal 7-25 [facility] Comment on above: Performed By: #### L [id number] #### [facility] ([facility]) [address] [place] [address] UREA NITROGEN/CREATININE (MASS RATIO) IN SER/PLAS 13.4 Normal [facility] Comment on above: Performed By: #### L [id number] #### [facility] ([facility]) [address] [place] [address] HEMOGLOBIN A1Con 08-26-2023 Glucose [Mass/Vol] 108 mg/dL Normal [facility] Comment on above: Performed By: #### L [id number] ####[facility] ([facility])[address] [facility] [place] [address] HbA1c (Bld) [Mass fraction] 5.4 % Normal 4.0-6.0 [facility] Comment on above: Performed By: #### L AB90 ####[facility] ([facility])[address] [place] [address] LIPID PANELon 08-26-2023 CHOL/HDL 4.7 mg/dL Normal [facility] Comment on above: Performed By: #### L [id number] ####[facility] ([facility])[address] [facility] [place] [address] Cholesterol [Mass/Vol] 198 mg/dL Normal 120-200 [facility] Comment on above: Performed By: #### L [id number] ####[facility] ([facility])[address] [place] [address] Magnesium [Mass/Vol] 248 mg/dL High 40-149 [facility] Comment on above: Result Comment: TRIG LYCERIDE REFERENCE RANGE: 20 YEARS AND OLDER CARDIOVASCULAR RISK LESS THAN 150 mg/dL LOW RISK 150 TO 199 mg/dL BORDERLINE RISK 200 mg/dL AND GREATER HIGH RISK Performed By: #### L [id number] ####[facility] ([facility])[address] [place] [address] Magnesium [Mass/Vol] 106 mg/dL Normal 0-160 [facility] Comment on above: Performed By: #### L [id number] ####[facility] ([facility])[address] [place] [address] Magnesium [Mass/Vol] 42 mg/dL Normal 23-92 [facility] Comment on above: Performed By: #### L [id number] ####[facility] ([facility])[address] [place] [address] NON HDL CHOL. (LDL+VLDL) 156 Normal [facility] Comment on above: Performed By: #### L [id number] ####[facility] ([facility])[address] [place] [address] TOTAL VLDL-C 50 mg/dL High 0-40 [facility] Comment on above: Performed By: #### L [id number] ####[facility] ([facility])[address] [place] [address] Labon 08-26-2023 Lab [id number] Antonio Puri i 1975 F Date Provider Department Center 08/26/2023 2245-[facility]PD LAB RESOURCE [facility] ND Medical C Family History Problem Relation Age of Onset Fibromyalgia Mother Heart disease Father Hypertension Sister Polycystic kidney disease Sister Hypertension Brother Polycystic kidney disease Brother Family Status - Relation Status Age at Mother Father Sister Brother Normal [facility] MAGNESIUMon 08-26-2023 Magnesium [Mass/Vol] 1.5 mg/dL Low 1.9-2.7 [facility] Comment on above: Performed By: #### L [id number] #### [facility] ([facility]) [address] [place] [address] PHOSPHORUSon 08-26-2023 Magnesium [Mass/Vol] 2.9 mg/dL Normal 2.5-5.0 [facility] Comment on above: Performed By: #### L [id number] #### [facility] ([facility]) [address] [place] [address] TACROLIMUS LEVELon Tacrolimus (Bld) [Mass/Vol] 9.2 ng/mL Normal 5.0-20.0 [facility] Comment on above: Result Comment: The [employer] Tacrolimus assay is a delayed one-step immunoassay for the quantitative determination of tacrolimus in human whole blood using the chemiluminescent microparticle immunoassay (CMIA) technology with flexible assay protocols, referred to as Chemiflex. Performed By: #### L [id number] #### [facility] ([facility]) [address] [place] [address] URIC ACIDon 08-26-2023 Magnesium [Mass/Vol] 5.1 mg/dL Normal 2.3-6.6 [facility] Comment on above: Performed By: #### L [id number] #### [facility] ([facility]) [address] [place] [address] PTH INTACTon 07-30-2022 PTH, Intact 107 pg/mL Critically high 15-65 [facility] Comment on above: Performed By: #### M G, URIC, RENAL #### [facility] [address] [place] [address] Dr. Hari Palmer FERRITINon 07-29-2022 Ferritin [Mass/Vol] 194.0 ng/mL Critically high 6.2-137.0 [facility] Comment on above: Performed By: #### M G, URIC, RENAL #### [facility] [address] [place] [address] Dr. Hari Palmer HEMOGRAM AND PLATELon 2021 Hematocrit (Bld) [Volume fraction] 32.8 % Critically low 36.0-48.0 [facility] Comment on above: Performed By: #### M G, URIC, RENAL #### [facility] [address] [place] [address] Dr. Hari Palmer Hemoglobin (Bld) [Mass/Vol] 10.8 g/dL Critically low 12.0-16.0 [facility] Comment on above: Performed By: #### M G, URIC, RENAL #### [facility] [address] [place] [address] Dr. Hari Palmer MCH (RBC) [Entitic mass] 31.7 pg Normal 26.7-34.0 [facility] Comment on above: Performed By: #### M G, URIC, RENAL #### [facility] [address] [place] [address] Dr. Hari Palmer MCHC (RBC) [Mass/Vol] 32.9 g/dL Normal 29.9-35.2 [facility] Comment on above: Performed By: #### M G, URIC, RENAL #### [facility] [address] [place] [address] Dr. Hari Palmer MCV (RBC) [Entitic vol] 96.2 fL Normal 81.0-99.0 [facility] Comment on above: Performed By: #### M G, URIC, RENAL #### [facility] [address] [place] [address] Dr. Hari Palmer PLT 297 103/ul Normal 150-450 [facility] Comment on above: Performed By: #### M G, URIC, RENAL #### [facility] [address] [place] [address] Dr. Hari Palmer RBC 3.41 106/ul Critically low 4.20-5.40 [facility] Comment on above: Performed By: #### M G, URIC, RENAL #### [facility] [address] [place] [address] Dr. Hari Palmer WBC 7.1 103/ul Normal 4.0-11.0 [facility] Comment on above: Performed By: #### M G, URIC, RENAL #### [facility] [address] [place] [address] Dr. Hari Palmer IRON AND TIBCon 07-29-2022 % SATURATION 19.0 % Normal [facility] Comment on above: Performed By: #### M G, URIC, RENAL #### [facility] [address] [place] [address] Dr. Hari Palmer Iron [Mass/Vol] 48.0 ug/dL Critically low 50.0-170.0 [facility] Comment on above: Performed By: #### M G, URIC, RENAL #### [facility] [address] [place] [address] Dr. Hari Palmer TIBC DIRECT 252.0 ug/dL Normal 250.0-450.0 [facility] Comment on above: Performed By: #### M G, URIC, RENAL #### [facility] [address] [place] [address] Dr. Hari Palmer MAGNESIUMon 07-29-2022 Magnesium [Mass/Vol] 2.0 mg/dL Normal 1.8-2.4 [facility] Comment on above: Performed By: #### M G, URIC, RENAL #### [facility] [address] [place] [address] Dr. Hari Palmer RENAL FUNCTION PANELon 07-29 Albumin [Mass/Vol] 3.6 g/dL Normal 3.4-5.0 [facility] Comment on above: Performed By: #### M G, URIC, RENAL #### [facility] [address] [place] [address] Dr. Hari Palmer Calcium [Mass/Vol] 8.7 mg/dL Normal 8.5-10.1 [facility] Comment on above: Performed By: #### M G, URIC, RENAL #### [facility] [address] [place] [address] [address] Hari Palmer Chloride [Moles/Vol] 104 mmol/L Normal 98-107 [facility] Comment on above: Performed By: #### M G, URIC, RENAL #### [facility] [address] [address] [address] Hari Palmer CO2 [Moles/Vol] 21.8 mmol/L Normal 21.0-32.0 [facility] Comment on above: Performed By: #### M G, URIC, RENAL #### [facility] [address] [address] [address] Hari Palmer Creatinine [Mass/Vol] 3.83 mg/dL Critically high 0.55-1.02 [facility] Comment on above: Performed By: #### M G, URIC, RENAL #### [facility] [address] [address] [address] Hari Palmre EGFR-AF FRENCH 15 mL/min/1.73m2 Critically low >=60 [facility] Comment on above: Performed By: #### M G, URIC, RENAL #### [facility] [address] [address] [address] Hari Palmer EGFR-NON AF FRENCH 13 mL/min/1.73m2 Critically low >=60 [facility] Comment on above: Performed By: #### M G, URIC, RENAL #### [facility] [address] [address] [address] Hari Palmer Glucose [Mass/Vol] 108 mg/dL Critically high 74-106 [facility] Comment on above: Performed By: #### M G, URIC, RENAL #### [facility] [address] [address] [address] Hari Palmer Phosphate [Mass/Vol] 5.4 mg/dL Critically high 2.6-4.7 [facility] Comment on above: Performed By: #### M G, URIC, RENAL #### [facility] [address] [address] [address] Hari Palmer Potassium [Moles/Vol] 3.9 mmol/L Normal 3.5-5.1 [facility] Comment on above: Performed By: #### M G, URIC, RENAL #### [facility] [address] [place] [address] Dr. Hari Palmer Sodium [Moles/Vol] 137 mmol/L Normal 136-145 [facility] Comment on above: Performed By: #### M G, URIC, RENAL #### [facility] [address] [place] [address] Dr. Hari Palmer Urea nitrogen [Mass/Vol] 47.0 mg/dL Critically high 7.0-18.0 [facility] Comment on above: Performed By: #### M G, URIC, RENAL #### [facility] [address] [place] [address] Dr. Hari Palmer URIC ACID SERUMon 07-29-2022 Urate [Mass/Vol] 6.3 mg/dL Critically high 2.6-6.0 [facility] Comment on above: Performed By: #### M G, URIC, RENAL #### [facility] [address] [place] [address] Dr. Hari Palmer URINE T PROTEIN CREAT RATIOo n 07-29-2022 Protein (U) [Mass/Vol] 29.7 mg/dL Critically high <=12.0 [facility] Comment on above: Performed By: #### M G, URIC, RENAL #### [facility] [address] [place] [address] Dr. Hari Palmer UR PROT CREAT RAT 0.56 Normal [facility] Comment on above: Performed By: #### M G, URIC, RENAL #### [facility] [address] [place] [address] Dr. Hari Palmer URINE CREAT 53.35 mg/dL Normal 20.00-300.00 [facility] Comment on above: Performed By: #### M G, URIC, RENAL #### [facility] [address] [place] [address] Dr. Hari Palmer VITAMIN D 25 OHon 07-29-2022 VIT D 25-OH 38.8 ng/mL Normal [facility] Comment on above: Performed By: #### M G, URIC, RENAL #### [facility] [address] [place], [place] [address] Dr. Hari Palmer VIT D RANGES SEE BELOW Normal [facility] Comment on above: Result Comment: <20 ng/mL Vit D deficient 20 - <30 ng/mL Vit D insufficient 30 - 100 ng/mL Vit D sufficient >100 ng/mL Potential Toxicity Performed By: #### M G, URIC, RENAL #### [facility] [address] [place], [place] [address] Dr. Hari Palmer Albumin [Mass/volume] in Ser um or PlasmaOrdered By: Stanley Forman on 06-20-2022 Albumin [Mass/Vol] 3.9 g/dL 3.2-5.5 [facility] Basophils Auto (Bld) [#/Vol] Ordered By: Stanley Forman on 06-20-2022 Basophils (Bld) [#/Vol] 0.1 10*3/uL 0.0-0.2 [facility] Basophils/100 WBC Auto (Bld) Ordered By: Stanley Forman on 06-20-2022 Basophils/100 WBC (Bld) 0.7 % . F [facility] Blood hemoglobin measurement (mass/volume)Ordered By: Stanley Forman on 06-20-2022 Hemoglobin (Bld) [Mass/Vol] 10.8 g/dL 11.8-15.4 [facility] Blood leukocytes automated c ount (number/volume)Ordered By: Stanley Forman on 06-20-2022 WBC (Bld) [#/Vol] 11.8 10*3/uL 4.5-11.0 [facility] C reactive protein [Mass/vol ume] in Serum or PlasmaOrdered By: Stanley Forman on 06-20-2022 CRP [Mass/Vol] 5.2 mg/dL 0.0-1.0 [facility] Creatinine and Glomerular fi ltration rate.predicted panel (S/P/Bld)Ordered By: Stanley Forman on 06-20-2022 Creatinine [Mass/Vol] 4.49 mg/dL 0.44-1.03 [facility] Eosinophils Auto (Bld) [#/Vo l]Ordered By: Stanley Forman on 06-20-2022 Eosinophils (Bld) [#/Vol] 0.4 10*3/uL 0.0-0.45 [facility] Eosinophils/100 WBC Auto (Bl d)Ordered By: Stanley Forman on 06-20-2022 Eosinophils/100 WBC (Bld) 3.2 % . [facility] Erythrocyte distribution wid th Auto (RBC) [Ratio]Ordered By: Stanley Forman on 06-20-2022 Erythrocyte distribution width (RBC) [Ratio] 14.0 % 11.9-15.3 [facility] Erythrocyte sedimentation ra te by Photometric methodOrdered By: Stanley Forman on 06-20-2022 ESR Photometric method (d) [Velocity] 67 mm/hr 0-19 [facility] Estimated glomerular filtrat ion rate (GFR) non- AmericanOrdered By: Stanley Forman on 06-20-2022 GFR/1.73 sq M.predicted among non-blacks MDRD (S/P/Bld) [Vol rate/Area] 11 mL/Min [facility] Globulin Calc (S) [Mass/Vol] Ordered By: Stanley Forman on 06-20-2022 Globulin (S) [Mass/Vol] 3.5 g/dL [facility] Hematocrit Auto (Bld) [Volum e fraction]Ordered By: Stanley Forman on 06-20-2022 Hematocrit (Bld) [Volume fraction] 33.1 % 34.0-46.4 [facility] Laboratory - Hematology and Cell countsOrdered By: Stanley Forman on 06-20-2022 Nucleated RBC/100 WBC (Bld) [Ratio] 0.0 % 0-0.5 [facility] Lymphocytes Auto (Bld) [#/Vo l]Ordered By: Stanley Forman on 06-20-2022 Lymphocytes (Bld) [#/Vol] 1.5 10*3/uL 1.00-4.8 [facility] Lymphocytes/100 WBC Auto (Bl d)Ordered By: Stanley Forman on 06-20-2022 Lymphocytes/100 WBC (Bld) 12.3 % . [facility] MCH Auto (RBC) [Entitic mass ]Ordered By: Stanley Forman on 06-20-2022 MCH (RBC) [Entitic mass] 31.1 pg 24.7-34.3 [facility] MCHC Auto (RBC) [Mass/Vol]Or dered By: Stanley Forman on 06-20-2022 MCHC (RBC) [Mass/Vol] 32.5 g/dL 32.0-35.0 [facility] MCV Auto (RBC) [Entitic vol] Ordered By: Stanley Forman on 06-20-2022 MCV (RBC) [Entitic vol] 95.6 fL 80-100 [facility] Monocytes Auto (Bld) [#/Vol] Ordered By: Stanley Forman on 06-20-2022 Monocytes (Bld) [#/Vol] 0.5 10*3/uL 0.0-0.8 [facility] Monocytes/100 WBC Auto (Bld) Ordered By: Stanley Forman on 06-20-2022 Monocytes/100 WBC (Bld) 4.1 % . [facility] Neutrophils Auto (Bld) [#/Vo l]Ordered By: Stanley Forman on 06-20-2022 Neutrophils (Bld) [#/Vol] 9.4 10*3/uL 1.8-7.7 [facility] Neutrophils/100 WBC Auto (Bl d)Ordered By: Stanley Forman on 06-20-2022 Neutrophils/100 WBC (Bld) 79.7 % . [facility] No Panel InformationOrdered By: Stanley Forman on 06-20-2022 Estimated GFR () 13 mL/Min [facility] Comment on above: GFR estimated refere nce range: According to KDOQI guidelines, <60 ml/min/1.73m2 is sufficient to diagnose a patient with chronic kidney disease. Pharmacy Creatinine Clearance (Chem 16.48 [facility] Platelet mean volume Auto (B ld) [Entitic vol]Ordered By: Stanley Forman on 06-20-2022 Platelet mean volume (Bld) [Entitic vol] 7.0 fL 6.3-10.7 [facility] Platelets Auto (Bld) [#/Vol] Ordered By: Stanley Forman on 06-20-2022 Platelets (Bld) [#/Vol] 287 10*3/uL 150-450 [facility] Protein [Mass/volume] in Ser um or PlasmaOrdered By: Stanley Forman on 06-20-2022 Protein [Mass/Vol] 7.4 g/dL 6.1-7.9 [facility] RBC Auto (Bld) [#/Vol]Ordere d By: Stanley Forman on 06-20-2022 RBC (Bld) [#/Vol] 3.46 10*6/uL 3.60-5.00 [facility] Serum or plasma alanine cesar otransferase measurement without P-5'-P (enzymatic activiOrdered By: Stanley Forman on 06-20-2022 ALT No additional P-5'-P [Catalytic activity/Vol] 11 U/L 10-60 [facility] Serum or plasma albumin/glob ulin mass ratioOrdered By: Stanley Forman on 06-20-2022 Albumin/Globulin [Mass ratio] 1.1 {ratio} [facility] Serum or plasma alkaline gina sphatase measurement (enzymatic activity/volume)Ordered By: Stanley Forman on 06-20-2022 ALP [Catalytic activity/Vol] 82 U/L 32-92 [facility] Serum or plasma anion gap de terminationOrdered By: Stanley Forman on 06-20-2022 Anion gap [Moles/Vol] 16.2 mmol/L 6.0-15.0 [facility] Serum or plasma aspartate am inotransferase measurement (enzymatic activity/volume)Ordered By: Stanley Forman on 06-20-2022 AST [Catalytic activity/Vol] 15 U/L 10-42 [facility] Serum or plasma calcium ge urement (mass/volume)Ordered By: Stanley Forman on 06-20-2022 Calcium [Mass/Vol] 9.3 mg/dL 8.2-10.2 [facility] Serum or plasma chloride lee surement (moles/volume)Ordered By: Stanley Forman on 06-20-2022 Chloride [Moles/Vol] 103 mmol/L 95-114 [facility] Serum or plasma glucose ge urement (mass/volume)Ordered By: Stanley Forman on 06-20-2022 Glucose [Mass/Vol] 75 mg/dL 70-100 [facility] Comment on above: ADA recommended refe rence rangeRandom Glucose Reference Range is dependent on time and content of last meal. Glucose of more than 200 mg/dL in a nonstressed, ambulatory subject supports the diagnosis of Diabetes Mellitus. Serum or plasma potassium me asurement (moles/volume)Ordered By: Stanley Forman on 06-20-2022 Potassium [Moles/Vol] 4.3 mmol/L 3.5-5.1 [facility] Serum or plasma sodium measu rement (moles/volume)Ordered By: Stanley Forman on 06-20-2022 Sodium [Moles/Vol] 135 mmol/L 136-146 [facility] Serum or plasma total biliru bin measurement (mass/volume)Ordered By: Stanley Forman on 06-20-2022 Bilirubin [Mass/Vol] 0.3 mg/dL 0.3-1.2 [facility] Serum or plasma total carbon dioxide measurement (moles/volume)Ordered By: Stanley Forman on 06-20-2022 CO2 [Moles/Vol] 20.1 mmol/L 22.0-30.0 [facility] Serum or plasma urea nitroge n measurement (mass/volume)Ordered By: Stanley Forman on 06-20-2022 Urea nitrogen [Mass/Vol] 42 mg/dL 9- [facility] COVID-19 Positive/NegativeOr dered By: Jesus Parham on 06-14-2022 SARS-CoV-2 (COVID-19) N gene AMBERLY+probe Ql (Resp) Negative Negative [facility] Comment on above: Testing for SARS-CoV -2 by RT-PCR This test was developed and its performance characteristics determined by [employer] ([employer]) and validated at the [facility]. This test has not been [...] and its performance characteristics determined by [employer] ([employer]) and validated at the [facility]. This test has not been [...] Antigen (CA) 125 10.8 U/mL Normal 0.0-38.1 [facility] Comment on above: Result Comment: [employer] Electrochemiluminescence Immunoassay (ECLIA) . Values obtained with different assay methods or kits cannot be used interchangeably. Results cannot be interpreted as absolute evidence of the presence or absence of malignant disease. Performed By: #### M G, URIC, RENAL #### [facility] [address] [address] [address] Hari Palmer CEAon 06-08-2022 CEA 0.9 ng/mL Normal 0.0-4.7 [facility] Comment on above: Result Comment: Nons mokers <3.9 Smokers <5.6 . [employer] Electrochemiluminescence Immunoassay (ECLIA) . Values obtained with different assay methods or kits cannot be used interchangeably. Results cannot be interpreted as absolute evidence of the presence or absence of malignant disease. Performed By: #### C EA. #### [facility] [address] [address] [address] Hari Palmer Basophils Auto (Bld) [#/Vol] Ordered By: Jesus Parham on 06-05-2022 Basophils (Bld) [#/Vol] 0.0 10*3/uL 0.0-0.2 [facility] Basophils/100 WBC Auto (Bld) Ordered By: Jesus Parham on 06-05-2022 Basophils/100 WBC (Bld) 0.3 % . [facility] Blood hemoglobin measurement (mass/volume)Ordered By: Jesus Parham on 06-05-2022 Hemoglobin (Bld) [Mass/Vol] 12.0 g/dL 11.8-15.4 [facility] Blood leukocytes automated c ount (number/volume)Ordered By: Jesus Parham on 06-05-2022 WBC (Bld) [#/Vol] 8.5 10*3/uL 4.5-11.0 [facility] Creatinine and Glomerular fi ltration rate.predicted panel (S/P/Bld)Ordered By: Jesus Parham on 06-05-2022 Creatinine [Mass/Vol] 3.52 mg/dL 0.44-1.03 [facility] Eosinophils Auto (Bld) [#/Vo l]Ordered By: Jesus Parham on 06-05-2022 Eosinophils (Bld) [#/Vol] 0.2 10*3/uL 0.0-0.45 [facility] Eosinophils/100 WBC Auto (Bl d)Ordered By: Jesus Parham on 06-05-2022 Eosinophils/100 WBC (Bld) 2.7 % . [facility] Erythrocyte distribution wid th Auto (RBC) [Ratio]Ordered By: Jesus Parham on 06-05-2022 Erythrocyte distribution width (RBC) [Ratio] 14.2 % 11.9-15.3 [facility] Estimated glomerular filtrat ion rate (GFR) non- AmericanOrdered By: Jesus Parham on 06-05-2022 GFR/1.73 sq M.predicted among non-blacks MDRD (S/P/Bld) [Vol rate/Area] 14 mL/Min [facility] Hematocrit Auto (Bld) [Volum e fraction]Ordered By: Jesus Parham on 06-05-2022 Hematocrit (Bld) [Volume fraction] 35.8 % 34.0-46.4 [facility] Laboratory - Hematology and Cell countsOrdered By: Jesus Parham on 06-05-2022 Nucleated RBC/100 WBC (Bld) [Ratio] 0.1 % 0-0.5 [facility] Lymphocytes Auto (Bld) [#/Vo l]Ordered By: Jesus Parham on 06-05-2022 Lymphocytes (Bld) [#/Vol] 1.6 10*3/uL 1.00-4.8 [facility] Lymphocytes/100 WBC Auto (Bl d)Ordered By: Jesus Parham on 06-05-2022 Lymphocytes/100 WBC (Bld) 19.3 % . [facility] MCH Auto (RBC) [Entitic mass ]Ordered By: Jesus Parham on 06-05-2022 MCH (RBC) [Entitic mass] 31.5 pg 24.7-34.3 [facility] MCHC Auto (RBC) [Mass/Vol]Or dered By: Jesus Parham on 06-05-2022 MCHC (RBC) [Mass/Vol] 33.3 g/dL 32.0-35.0 [facility] MCV Auto (RBC) [Entitic vol] Ordered By: Jesus Parham on 06-05-2022 MCV (RBC) [Entitic vol] 94.4 fL 80-100 [facility] Monocytes Auto (Bld) [#/Vol] Ordered By: Jesus Parham on 06-05-2022 Monocytes (Bld) [#/Vol] 0.3 10*3/uL 0.0-0.8 [facility] Monocytes/100 WBC Auto (Bld) Ordered By: Jesus Parham on 06-05-2022 Monocytes/100 WBC (Bld) 3.9 % . [facility] Neutrophils Auto (Bld) [#/Vo l]Ordered By: Jesus Parham on 06-05-2022 Neutrophils (Bld) [#/Vol] 6.2 10*3/uL 1.8-7.7 [facility] Neutrophils/100 WBC Auto (Bl d)Ordered By: Jesus Parham on 06-05-2022 Neutrophils/100 WBC (Bld) 73.8 % . [facility] No Panel InformationOrdered By: Jesus Parham on 06-05-2022 Estimated GFR () 17 mL/Min [facility] Comment on above: GFR estimated refere nce range: According to KDOQI guidelines, <60 ml/min/1.73m2 is sufficient to diagnose a patient with chronic kidney disease. Pharmacy Creatinine Clearance (Chem N/A [facility] Platelet mean volume Auto (B ld) [Entitic vol]Ordered By: Jesus Parham on 06-05-2022 Platelet mean volume (Bld) [Entitic vol] 7.3 fL 6.3-10.7 [facility] Platelets Auto (Bld) [#/Vol] Ordered By: Jesus Parham on 06-05-2022 Platelets (Bld) [#/Vol] 312 10*3/uL 150-450 [facility] RBC Auto (Bld) [#/Vol]Ordere d By: Jesus Parham on 06-05-2022 RBC (Bld) [#/Vol] 3.80 10*6/uL 3.60-5.00 [facility] Serum or plasma anion gap de terminationOrdered By: Jesus Parham on 06-05-2022 Anion gap [Moles/Vol] 15.1 mmol/L 6.0-15.0 [facility] Serum or plasma calcium ge urement (mass/volume)Ordered By: Jesus Parham on 06-05-2022 Calcium [Mass/Vol] 9.5 mg/dL 8.2-10.2 [facility] Serum or plasma chloride lee surement (moles/volume)Ordered By: Jesus Parham on 06-05-2022 Chloride [Moles/Vol] 106 mmol/L 95-114 [facility] Serum or plasma glucose ge urement (mass/volume)Ordered By: Jesus Parham on 06-05-2022 Glucose [Mass/Vol] 91 mg/dL 70-100 [facility] Comment on above: ADA recommended refe [...] on 06-05-2022 Potassium [Moles/Vol] 4.4 mmol/L 3.5-5.1 [facility] Serum or plasma sodium measu rement (moles/volume)Ordered By: Jesus Parham on 06-05-2022 Sodium [Moles/Vol] 137 mmol/L 136-146 [facility] Serum or plasma total carbon dioxide measurement (moles/volume)Ordered By: Jesus Parham on 06-05-2022 CO2 [Moles/Vol] 20.3 mmol/L 22.0-30.0 [facility] Serum or plasma urea nitroge n measurement (mass/volume)Ordered By: Jesus Parham on 06-05-2022 Urea nitrogen [Mass/Vol] 38 mg/dL 9-23 [facility] PTH INTACTon 04-29-2022 PTH, Intact 191 pg/mL Critically high 15-65 [facility] Comment on above: Performed By: #### M G, URIC, RENAL #### [facility] [address] [address] [address] Hari Palmer VIT D 25-OH LABCORPon 2021 Vitamin D, 25-Hydroxy 33.6 ng/mL Normal 30.0-100.0 [facility] Comment on above: Result Comment: Ning min D deficiency has been defined by the [place] [employer] and an Endocrine Society practice guideline as a level of serum 25-OH vitamin D less than 20 ng/mL (1,2). The Endocrine Society went on to further define vitamin D insufficiency as a level between 21 and 29 ng/mL (2). 1. IOM ([place] [employer]). 2010. Dietary reference intakes for calcium and D. [place]: The National Academies Press. 2. Chantel MF, Landen BURGOS, Eliseo STEPHENS, et al. Evaluation, treatment, and prevention of vitamin D deficiency: an Endocrine Society clinical practice guideline. JCEM. 2010; 96(7):1911-30. Performed By: #### M G, URIC, RENAL #### [facility] [address] [place] [address] Dr. Hari Palmer ABO AND RH TYPEon 04-27-2022 ABO and Rh group Nom (Bld) ABO Rh Typing O Rh Positive Normal [facility] Comment on above: Performed By: #### M G, URIC, RENAL #### [facility] [address] [place] [address] Dr. Hari Palmer FERRITINon 04-27-2022 Ferritin [Mass/Vol] 273.0 ng/mL Critically high 6.2-137.0 [facility] Comment on above: Performed By: #### M Edy URIC, RENAL #### [facility] [address] [place] [address] Dr. Hari Palmer HEMOGRAM AND PLATELon 2021 Hematocrit (Bld) [Volume fraction] 33.9 % Critically low 36.0-48.0 [facility] Comment on above: Performed By: #### M Edy URIC, RENAL #### [facility] [address] [place] [address] Dr. Hari Palmer Hemoglobin (Bld) [Mass/Vol] 11.4 g/dL Critically low 12.0-16.0 [facility] Comment on above: Performed By: #### M G, URIC, RENAL #### [facility] [address] [place] [address] Dr. Hari Palmer MCH (RBC) [Entitic mass] 31.7 pg Normal 26.7-34.0 [facility] Comment on above: Performed By: #### M G, URIC, RENAL #### [facility] [address] [place] [address] Dr. Hari Palmer MCHC (RBC) [Mass/Vol] 33.6 g/dL Normal 29.9-35.2 [facility] Comment on above: Performed By: #### M G, URIC, RENAL #### [facility] [address] [address] [address] Hari Palmer MCV (RBC) [Entitic vol] 94.2 fL Normal 81.0-99.0 [facility] Comment on above: Performed By: #### M G, URIC, RENAL #### [facility] [address] [place] [address] Dr. Hari Palmer PLT 333 103/ul Normal 150-450 [facility] Comment on above: Performed By: #### M G, URIC, RENAL #### [facility] [address] [place] [address] Dr. Hari Palmer RBC 3.60 106/ul Critically low 4.20-5.40 [facility] Comment on above: Performed By: #### M G, URIC, RENAL #### [facility] [address] [place] [address] Dr. Hari Palmer WBC 9.7 103/ul Normal 4.0-11.0 [facility] Comment on above: Performed By: #### M G, URIC, RENAL #### [facility] [address] [place] [address] Dr. Hari Palmer IRON AND TIBCon 04-27-2022 % SATURATION 20.1 % Normal [facility] Comment on above: Performed By: #### M G, URIC, RENAL #### [facility] [address] [place] [address] Dr. Hari Palmer Iron [Mass/Vol] 57.0 ug/dL Normal 50.0-170.0 [facility] Comment on above: Performed By: #### M G, URIC, RENAL #### [facility] [address] [place] [address] Dr. Hari Palmer TIBC DIRECT 283.0 ug/dL Normal 250.0-450.0 [facility] Comment on above: Performed By: #### M G, URIC, RENAL #### [facility] [address] [place] [address] Dr. Hari Palmer MAGNESIUMon 04-27-2022 Magnesium [Mass/Vol] 2.1 mg/dL Normal 1.8-2.4 [facility] Comment on above: Performed By: #### R ENAL, URIC, MG #### [facility] [address] [place] [address] Dr. Hari Palmer RENAL FUNCTION PANELon 04-27 Albumin [Mass/Vol] 3.6 g/dL Normal 3.4-5.0 [facility] Comment on above: Performed By: #### R ENAL, URIC, MG #### [facility] [address] [address] [address] Hari Palmer Calcium [Mass/Vol] 9.0 mg/dL Normal 8.5-10.1 [facility] Comment on above: Performed By: #### R ENAL, URIC, MG #### [facility] [address] [place] [address] Dr. Hari Palmer Chloride [Moles/Vol] 104 mmol/L Normal 98-107 [facility] Comment on above: Performed By: #### R ENAL, URIC, MG #### [facility] [address] [place] [address] Dr. Hari Palmer CO2 [Moles/Vol] 23.0 mmol/L Normal 21.0-32.0 [facility] Comment on above: Performed By: #### R ENAL, URIC, MG #### [facility] [address] [place] [address] Dr. Hari Palmer Creatinine [Mass/Vol] 3.38 mg/dL Critically high 0.55-1.02 [facility] Comment on above: Performed By: #### R ENAL, URIC, MG #### [facility] [address] [place] [address] Dr. Hari Palmer EGFR-AF FRENCH 18 mL/min/1.73m2 Critically low >=60 [facility] Comment on above: Performed By: #### R ENAL, URIC, MG #### [facility] [address] [place] [address] Dr. Hari Palmer EGFR-NON AF FRENCH 15 mL/min/1.73m2 Critically low >=60 [facility] Comment on above: Performed By: #### R ENAL, URIC, MG #### [facility] [address] [place] [address] Dr. Hari Palmer Glucose [Mass/Vol] 113 mg/dL Critically high 74-106 [facility] Comment on above: Performed By: #### R ENAL, URIC, MG #### [facility] [address] [place] [address] Dr. Hari Palmer Phosphate [Mass/Vol] 4.4 mg/dL Normal 2.6-4.7 [facility] Comment on above: Performed By: #### R ENAL, URIC, MG #### [facility] [address] [place] [address] Dr. Hari Palmer Potassium [Moles/Vol] 4.0 mmol/L Normal 3.5-5.1 [facility] Comment on above: Performed By: #### R ENAL, URIC, MG #### [facility] [address] [place] [address] Dr. Hari Palmer Sodium [Moles/Vol] 137 mmol/L Normal 136-145 [facility] Comment on above: Performed By: #### R ENAL, URIC, MG #### [facility] [address] [place] [address] Dr. Hari Palmer Urea nitrogen [Mass/Vol] 44.0 mg/dL Critically high 7.0-18.0 [facility] Comment on above: Performed By: #### R ENAL, URIC, MG #### [facility] [address] [place] [address] Dr. Hari Palmer URIC ACID SERUMon 04-27-2022 Urate [Mass/Vol] 6.6 mg/dL Critically high 2.6-6.0 [facility] Comment on above: Performed By: #### R ENAL, URIC, MG #### [facility] [address] [place] [address] Dr. Hari Palmer URINE T PROTEIN CREAT RATIOo n 04-27-2022 Protein (U) [Mass/Vol] 31.4 mg/dL Critically high <=12.0 [facility] Comment on above: Performed By: #### M G, URIC, RENAL #### [facility] [address] [place], [place] [address] Dr. Hari Palmer UR PROT CREAT RAT 0.55 Normal [facility] Comment on above: Performed By: #### M G, URIC, RENAL #### [facility] [id number] Hari Palmer URINE CREAT 57.50 mg/dL Normal 20.00-300.00 [facility] Comment on above: Performed By: #### M G, URIC, RENAL #### [facility] [address] [place], [place] [address] Dr. Hari Palmer ECHOCARDIO M/2D COMPLETEon 0 03-29-2022 ECHOCARDIO M/2D COMPLETE Patient: MANDEEP PURI Exam Date: 03/29/2022 : 1975 Gender:F Ordering : HAIDER FRENCH M.D. Admission #: [id number] Family : Order #: [id number] CLICK HERE TO VIEW EXAM ECHOCARDIOGRAM REPORT [...] Area(A4C): 17.00 cm2 Left Atrium Systolic Volume(A2C): 24956 mm3 Left Atrium Systolic Volume(A4C): 38454 mm3 Mitral Valve MV E to A Ratio: 0.80 Deceleration Williamson: 3210 mm/s2 Mitral Valve A-Wave Peak Velocity: [...] M.D. on 04/01/2022 at 12:33 Normal [facility] COVID-19 SOFIAOrdered By: Mary Beth Jones on 03-28-2022 SARS-CoV+SARS-CoV-2 (COVID-19) Ag IA.rapid Ql (Resp) Negative Negative [facility] Comment on above: This is a duplicate Ada SARS Antigen (GLORIA) result to be used for statistical tracking purpose only. No Panel InformationOrdered By: Shabbir Jones on 03-28-2022 SARS Antigen (LFIA) [facility] BLOOD TYPE AND RHon 02-13-20 ABO INTERPRETATION O Normal [facility] Comment on above: Performed By: #### 3 [id number], [id number], [id number], [id number], [id number] #### [facility] [address] RH INTERPRETATION Positive Normal [facility] Comment on above: Performed By: #### 3 1397, [id number], [id number], [id number], [id number] #### [facility] [address] [address] BNP (B-TYPE NATRIURETIC PEPT JOEL)on 02-12-2022 Natriuretic peptide B (Bld) [Mass/Vol] 10 pg/mL Normal 0-100 [facility] Comment on above: Result Comment: Give n the appropriate clinical setting a BNP result of >100 pg/mL indicates congestive heart failure. Performed By: #### 8 [id number], [id number] #### [facility] [address] [facility] [place] [address], [facility] CBC W/DIFFon 02-12-2022 ABS IMM GRANS 0.2 10*3/uL Normal 0.0-0.2 [facility] Comment on above: Performed By: #### 3 1397, 60636, 29895, 79590, 27266 #### [facility] [address] [place] [address], [facility] ABS NEUTROPHILS 7.8 10*3/uL High 1.6-7.6 [facility] Comment on above: Performed By: #### 3 1397, 63994, 91435, 49066, 34372 #### [facility] [address] [place] [address], [facility] Basophils (Bld) [#/Vol] 0.1 10*3/uL Normal 0.0-0.2 [facility] Comment on above: Performed By: #### 3 1397, 74282, 15154, 42649, 70969 #### [facility] [address] [place] [address], [facility] Basophils/100 WBC (Bld) 0.6 % Normal 0.0-1.0 T marcelle [facility] Comment on above: Performed By: #### 3 1397, 52077, 50217, 86052, 18277 #### [facility] [address] [place] [address], [facility] Eosinophils (Bld) [#/Vol] 0.3 10*3/uL Normal 0.0-0.5 [facility] Comment on above: Performed By: #### 3 1397, 72870, 88515, 09490, 56411 #### [facility] [address] [place] [address], [facility] Eosinophils/100 WBC (Bld) 2.5 % Normal 0.0-6.0 [facility] Comment on above: Performed By: #### 3 1397, 76964, 72671, 23148, 88662 #### [facility] [address] [place] [address], [facility] Erythrocyte distribution width (RBC) [Ratio] 13.6 % Normal 11.5-15.0 [facility] Comment on above: Performed By: #### 3 1397, 73790, 46706, 83632, 73377 #### [facility] [address] [place] [id number], [facility] Hematocrit (Bld) [Volume fraction] 34.5 % Low 36.0-45.0 [facility] Comment on above: Performed By: #### 3 1397, 64456, 96618, 80680, 95351 #### [facility] [address] [place] [id number], [facility] Hemoglobin (Bld) [Mass/Vol] 11.3 g/dL Low 12.0-15.0 [facility] Comment on above: Performed By: #### 3 1397, 50102, 66967, 23369, 32514 #### [facility] [address] [place] [address], [facility] IMMATURE GRANS 1.4 % High 0.0-1.0 [facility] Comment on above: Performed By: #### 3 1397, 70303, 10866, 32156, 67051 #### [facility] [address] [address], [facility] Lymphocytes (Bld) [#/Vol] 2.0 10*3/uL Normal 1.2-4.0 [facility] Comment on above: Performed By: #### 3 1397, 50923, 16172, 53113, 67763 #### [facility] [address] [place] [address], [facility] Lymphocytes/100 WBC (Bld) 18.6 % Low 20.0-45.0 [facility] Comment on above: Performed By: #### 3 1397, 90589, 51693, 75833, 56659 #### [facility] [address] MCH (RBC) [Entitic mass] 31.3 pg Normal 27.0-33.0 [facility] Comment on above: Performed By: #### 3 1397, 47053, 52109, 75581, 77868 #### [facility] [address] MCHC (RBC) [Mass/Vol] 32.8 g/dL Normal 32.0-35.0 [facility] Comment on above: Performed By: #### 3 1397, 90910, 11682, 59252, 00141 #### [facility] [address] [facility] [place] [address], [facility] MCV (RBC) [Entitic vol] 95.6 fL Normal 82.0-98.0 T [facility] Comment on above: Performed By: #### 3 1397, 36550, 80592, 72081, 21079 #### [facility] [address] [place] [address], [facility] Monocytes (Bld) [#/Vol] 0.5 10*3/uL Normal 0.1-1.0 [facility] Comment on above: Performed By: #### 3 1397, 71139, 21657, 73001, 48079 #### [facility] [address] [place] [address], [facility] MONOS 4.9 % Low 5.0-12.0 [facility] Comment on above: Performed By: #### 3 1397, 66956, 08874, 76598, 91064 #### [facility] [address] [place] [address], [facility] Neutrophils/100 WBC (Bld) 72.0 % Normal 40.0-72.0 [facility] Comment on above: Performed By: #### 3 1397, 35548, 38370, 93943, 11630 #### [facility] [address] [place] [address], [facility] Nucleated RBC/100 WBC (Bld) [Ratio] 0 % Normal 0-0 [facility] Comment on above: Performed By: #### 3 1397, 77210, 56734, 15132, 62079 #### [facility] [address] [place] [address], [facility] PLAT CNT 315 10*3/uL Normal 150-400 [facility] Comment on above: Performed By: #### 3 1397, 70168, 14325, 32050, 83214 #### [facility] [address] [place] [address], [facility] RBC (Bld) [#/Vol] 3.61 10*6/uL Low 3.80-5.00 [facility] Comment on above: Performed By: #### 3 1397, 82079, 05360, 49797, 03363 #### [facility] [address] WBC (Bld) [#/Vol] 10.78 10*3/uL High 4.00-10.60 [facility] Comment on above: Performed By: #### 3 1397, 77553, 54637, 24419, 34115 #### [address] CHEST AND LATERALon 02-13-20 CHEST AND LATERAL [facility] Department of Radiology [address] [place] [address] [phone] == Patient Name: MANDEEP PURI : 1975 [...] pathology. Electronically signed: Royal Dominguez. Transcribed by: [email or web address], User Resident: Electronically Signed by: ROYAL DOMINGUEZ @ 02/13/2022 11:48 AM Normal [facility] CMV IGG BLOODon 02-12-2022 CMV IGG 3.13 Normal [facility] Comment on above: Result Comment: NORM AL RANGES: < OR = 0.9O NEGATIVE ; NO DETECTABLE IgG ANTIBODY TO CMV 0.91 - 1.09 EQUIVOCAL; REPEAT TESTING SUGGESTED > OR = 1.10 POSITIVE ; INDICATES PRESENCE OF DETECTABLE IgG ANTIBODY TO CMV Performed By: #### 3 1397, 94497, 32925, 33663, 60462 #### [facility] [address] COMP METABOLIC PANELon 02-12 Albumin [Mass/Vol] 4.5 g/dL Normal 3.5-5.7 [facility] Comment on above: Performed By: #### 2 2505, 56477, 61430 #### [facility] [address] [place] [address], [facility] ALKALINE PHOSPH 89 IU/L Normal 34-104 [facility] Comment on above: Performed By: #### 2 2505, 72094, 38909 #### [facility] [address] ALT [Catalytic activity/Vol] 12 U/L Normal 7-52 [facility] Comment on above: Performed By: #### 2 2505, 59632, 84143 #### [facility] [address] [place] [id number], [facility] AST [Catalytic activity/Vol] 13 U/L Normal 13-39 [facility] Comment on above: Performed By: #### 2 2505, 02578, 54828 #### [facility] [address] [place] [address], [place] Bilirubin [Mass/Vol] 0.3 mg/dL Normal 0.3-1.0 [facility] Comment on above: Performed By: #### 2 2505, 85982, 77401 #### [facility] [address] [place] [address], [place] Calcium [Mass/Vol] 9.5 mg/dL Normal 8.6-10.3 [facility] Comment on above: Performed By: #### 2 2505, 90699, 17046 #### [facility] [address] [place] [address], [place] Chloride [Moles/Vol] 103 mmol/L Normal 98-107 [facility] Comment on above: Performed By: #### 2 2505, 59129, 02498 #### [facility] [address] [place] [address], [place] CO2 [Moles/Vol] 22 mmol/L Normal 21-31 [facility] Comment on above: Performed By: #### 2 2505, 68318, 16395 #### [facility] [address] [place] [address], [place] Creatinine [Mass/Vol] 3.51 mg/dL High 0.60-1.20 [facility] Comment on above: Performed By: #### 2 2505, 47025, 96234 #### [facility] [address] [place] [address], [place] eGFR- 17 ml/min/1.73sq m Abnormal >60 [facility] Comment on above: Performed By: #### 2 2505, 03887, 98411 #### [facility] [address] [place] [address], [place] eGFR- non- 14 ml/min/1.73sq m Abnormal >60 [facility] Comment on above: Performed By: #### 2 2505, 88266, 27929 #### [facility] [address] [place] [address], [place] Glucose [Mass/Vol] 100 mg/dL Normal 70-100 [facility] Comment on above: Performed By: #### 2 2505, 96090, 05825 #### [facility] [address] [place] [address], [place] Potassium [Moles/Vol] 3.9 mmol/L Normal 3.5-5.1 [facility] Comment on above: Performed By: #### 2 2505, 04379, 64798 #### [facility] [address] [place] [address], [place] Protein [Mass/Vol] 8.0 g/dL Normal 6.0-8.3 [facility] Comment on above: Performed By: #### 2 2505, 02459, 45084 #### [facility] [address] [place] [address], [place] Sodium [Moles/Vol] 136 mmol/L Normal 136-145 [facility] Comment on above: Performed By: #### 2 2505, 70384, 37825 #### [facility] [address] [place] [address], [place] Urea nitrogen [Mass/Vol] 41 mg/dL High 7-25 [facility] Comment on above: Performed By: #### 2 2505, 88576, 63422 #### [facility] [address] [place] [address], [place] CREATININE URINE RANDOMon Creatinine (U) [Mass/Vol] 63.0 mg/dL Normal [facility] Comment on above: Result Comment: Ther e are no established reference values for random urine specimens Performed By: #### 3 1397, 36529, 38214, 33455, 55930 #### [facility] [address] [place] [address], [place] RENAL RECIPIENT ABDOMEN A ND PEVLIS WO CONTRASTon 02-12-2022 CT RENAL RECIPIENT ABDOMEN AND PEVLIS WO CONTRAST [facility] Department of Radiology [address] [place] [address] == Patient Name: MANDEEP PURI : [...] achievable. Electronically signed: NAN SARAVIA. Transcribed by: [email or web address], User Resident: Electronically Signed by: NAN SARAVIA @ 02/12/2022 02:59 PM Normal [facility] Comment on above: Order Comment: , [...] 0.0 mg/dL Normal 0.0-0.2 [facility] Comment on above: Performed By: #### 2 2505, 20764, 06369 #### [facility] [address] BRETT LAGUERRE VIRUS ABon 02-03 EB VCA IGG 2.35 Normal [facility] Comment on above: Order Comment: CONSI STENT WITH PAST EBV INFECTION Result Comment: NORM AL RANGES: < OR = 0.9O NEGATIVE ; NO DETECTABLE IgG ANTIBODY TO EBV-VCA 0.91 - 1.09 EQUIVOCAL; REPEAT TESTING SUGGESTED > OR = 1.10 POSITIVE ; INDICATES PRESENCE OF DETECTABLE IgG ANTIBODY TO EBV Performed By: #### 3 1397, 38466, 05980, 65875, 48002 #### [facility] [address] [facility]. [address] EB VCA IGM 0.00 Normal [facility] Comment on above: Order Comment: CONSI STENT WITH PAST EBV INFECTION Result Comment: NORM AL RANGES: < OR = 0.9O NEGATIVE ; NO SIGNIFICANT LEVEL OF DETECTABLE EBV-VCA IgM AB 0.91 - 1.09 EQUIVOCAL; REPEAT TESTING SUGGESTED > OR = 1.10 POSITIVE ; SIGNIFICANT LEVEL OF DETECTABLE EBV-VCA IgM AB Performed By: #### 3 1397, 61530, 65842, 11008, 87576 #### [facility] [address] HEMOGLOBIN A1Con 02-12-2022 Glucose [Moles/Vol] 120 mmol/L Normal [facility] Comment on above: Performed By: #### 8 2883, 68447 #### [facility] [address] HbA1c (Bld) [Mass fraction] 5.8 % Normal 4.0-6.0 [facility] Comment on above: Performed By: #### 8 4193, 66267 #### [facility] [address] [place] [address], [facility] HEPATITIS A ANTIBODY IGMon 0 02-12-2022 HEP A AB IGM Non-Reactive Normal NONREACTIVE [facility] Comment on above: Performed By: #### 3 1397, 31642, 60526, 86052, 26819 #### [facility] [address] [place] [address], [facility] HEPATITIS B CORE ANTIBODYon 02-12-2022 HEP B CORE AB Non-Reactive Normal NONREACTIVE [facility] Comment on above: Performed By: #### 3 1397, 79626, 23551, 13055, 47224 #### [facility] [address] [place] [address], [facility] HEPATITIS B SURFACE ANTIBODY QUANTon 02-12-2022 HEP B SURF AB 1.14 mIU/ml Normal [facility] Comment on above: Result Comment: INTE RPRETATION: NONREACTIVE<8.00 mIU/mL INDETERMINATE8.00 - 12.00 mIU/mL REACTIVE>12 mIU/mL Performed By: #### 3 1397, 12193, 79940, 93767, 70490 #### [facility] [address] [facility] [place] [address], [facility] HEPATITIS B SURFACE ANTIGEN QUALon 02-12-2022 HEP B SURF AG QUAL Non-Reactive Normal NONREACTIVE [facility] Comment on above: Performed By: #### 3 1397, 24105, 98056, 14345, 80290 #### [facility] [address] [place] [address], [facility] HEPATITIS C ANTIBODYon 02-12 ANTI-HCV Non-Reactive Normal NONREACTIVE [facility] Comment on above: Performed By: #### 3 1397, 74150, 22839, 00625, 89599 #### [facility] [address] [facility] [place] [address], [facility] HIV1 AND 2 COMBO 4Gon 2021 HIV COMBO Negative Normal NEGATIVE [facility] Comment on above: Performed By: #### 3 1397, 67574, 51996, 06415, 13980 #### [facility] [address] HLA ABC CLASS I TYPINGon A*-1 EQUIVALENT 1 Normal [facility] Comment on above: Order Comment: Some [...] to frequency. Performed By: #### 3 1397, 30997, 87122, 49369, 78510 #### [facility] [address] [facility] [place] [address], [facility] A*-2 EQUIVALENT 2 Normal [facility] Comment on above: Order Comment: Some [...] to frequency. Performed By: #### 3 1397, 79728, 72623, 02721, 58167 #### [facility] [address] [facility] [place] [address], [facility] B*-1 EQUIVALENT 35 Normal [facility] Comment on above: Order Comment: Some [...] to frequency. Performed By: #### 3 1397, 12463, 79637, 53355, 65273 #### [facility] [address] [place] [address], [facility] B*-2 EQUIVALENT 37 Normal [facility] Comment on above: Order Comment: Some [...] to frequency. Performed By: #### 3 1397, 64625, 89117, 85158, 60273 #### [facility] [address] [place] [address], [facility] Bw*-1 EQUIVALENT 4 Normal [facility] Comment on above: Order Comment: Some [...] to frequency. Performed By: #### 3 1397, 02378, 12915, 86626, 29670 #### [facility] [address] [place] [address], [facility] Bw*-2 EQUIVALENT 6 Normal [facility] Comment on above: Order Comment: Some [...] to frequency. Performed By: #### 3 1397, 54460, 54907, 16661, 67134 #### [facility] [address] [place] [address], [facility] C*-1 EQUIVALENT 4 Normal [facility] Comment on above: Order Comment: Some [...] to frequency. Performed By: #### 3 1397, 49932, 20144, 34220, 37166 #### [facility] [address] [place] [address], [facility] C*-2 EQUIVALENT 6 Normal [facility] Comment on above: Order Comment: Some [...] to frequency. Performed By: #### 3 1397, 33951, 24886, 51755, 12247 #### [facility] [address] [place] [address], [facility] METHOD Class I Typing by PCR-SSOP Luminex Normal [facility] Comment on above: Order Comment: Some [...] to frequency. Performed By: #### 3 1397, 23025, 39866, 79497, 81490 #### [facility] [address] [facility]. [address] SIGNED BY Normal [facility] Comment on above: Order Comment: Some of [...] to frequency. Result Comment: Sree Noriega MS,CHT(DONA),MT(ASCP) Color Checker, Transplant Immunology Performed By: #### 3 1397, 22446, 66229, 36358, 20743 #### [facility] [address] [facility]. [address] CLASS II TYPINGon DPB1*-1 EQUIVALENT 04:01 Normal [facility] Comment on above: Order Comment: Some of [...] to frequency. Performed By: #### 3 1397, 24469, 77446, 07871, 99072 #### [facility] [address] [facility]. [address] DPB1*-2 EQUIVALENT 04:02 Normal [facility] Comment on above: Order Comment: Some of [...] to frequency. Performed By: #### 3 1397, 22853, 59482, 91773, 20713 #### [facility] [address] [place] [address], [place] DQA1*-1 EQUIVALENT 01 Normal [facility] Comment on above: Order Comment: Some [...] to frequency. Performed By: #### 3 1397, 98416, 66438, 98710, 74193 #### [facility] [address] [place] [address], [place] DQA1*-2 EQUIVALENT 05 Normal [facility] Comment on above: Order Comment: Some [...] to frequency. Performed By: #### 3 1397, 86504, 97725, 84577, 09982 #### [facility] [address] [place] [address], [place] DQB1*-1 EQUIVALENT 7 Normal [facility] Comment on above: Order Comment: Some [...] to frequency. Performed By: #### 3 1397, 32307, 24370, 59309, 96280 #### [facility] [address] [place] [address], [facility] DQB1*-2 EQUIVALENT 5 Normal [facility] Comment on above: Order Comment: Some [...] to frequency. Performed By: #### 3 1397, 49554, 32016, 36809, 59486 #### [facility] [address] [facility] [place] [address], [facility] DRB1*-1 EQUIVALENT 10 Normal [facility] Comment on above: Order Comment: Some [...] to frequency. Performed By: #### 3 1397, 74233, 54196, 91908, 42658 #### [facility] [address] [facility] [place] [address], [facility] DRB1*-2 EQUIVALENT 11 Normal [facility] Comment on above: Order Comment: Some [...] to frequency. Performed By: #### 3 1397, 28929, 89300, 15172, 02835 #### [facility] [address] [facility]. [address] DRB3*-1 EQUIVALENT 52 Normal [facility] Comment on above: Order Comment: Some [...] to frequency. Performed By: #### 3 1397, 23801, 15629, 89564, 56439 #### [facility] [address] [facility]. [address] METHOD Class II Typing by PCR-SSOP [employer] Normal [facility] Comment on above: Order Comment: Some [...] to frequency. Performed By: #### 3 1397, 89747, 77812, 82839, 09816 #### [facility] [address] [facility] [place] [address], [facility] LIPID PROFILEon 02-12-2022 Cholesterol [Mass/Vol] 221 mg/dL High 120-200 Th e [facility] Comment on above: Result Comment: CHOL ESTEROL REFERENCE RANGE: 20 YEARS AND OLDER CARDIOVASCULAR RISK Less than 200 mg/dl Low Risk 200 to 239 mg/dl Borderline Risk 240 mg/dl and greater High Risk Performed By: #### 3 1397, 80446, 65120, 41453, 31426 #### [facility] [address] [place] [address], [place] Cholesterol in HDL [Mass/Vol] 40 mg/dL Normal 23-92 [facility] Comment on above: Result Comment: Slig ht variation in normal range could be due to gender and/or age. HDL CHOLESTEROL REFERENCE RANGE: 20 years and older Cardiovascular Risk > or =60 mg/dL Desirable 40 TO 59 mg/dL Low Risk <40 mg/dL High Risk Performed By: #### 3 [id number], [id number], [id number], [id number], [id number] #### [facility] [address] [place] [address], [place] Cholesterol in LDL [Mass/Vol] 101 mg/dL Normal 0-130 [facility] Comment on above: Result Comment: LDL IS A CALCULATION LDL IS ONLY VALID IF THE TRIG IS LESS THAN 400. Performed By: #### 3 [id number], [id number], [id number], [id number], [id number] #### [facility] [address] [place] [address], [place] Cholesterol.total/Patt sterol in HDL [Mass ratio] 5.5 {ratio} High .0-4.5 [facility] [facility] Comment on above: Performed By: #### 3 1397, 84187, 41661, 49700, 54755 #### [facility] [address] [place] [address], [place] NON-HDL CHOLESTEROL 181 mg/dL Normal [facility] Comment on above: Performed By: #### 3 1397, 35243, 09860, 56915, 00668 #### [facility] [address] [place] [address], [place] Triglyceride [Mass/Vol] 402 mg/dL High 40-149 T [facility] Comment on above: Result Comment: TRIG LYCERIDE REFERENCE RANGE: 20 YEARS AND OLDER CARDIOVASCULAR RISK LESS THAN 150 mg/dl LOW RISK 150 TO 199 mg/dl BORDERLINE RISK 200 mg/dl AND GREATER HIGH RISK Performed By: #### 3 1397, 57003, 02551, 08289, 78842 #### [facility] [address] [place] [address], [facility] VLDL CHOL 80 mg/dL High 0-40 [facility] Comment on above: Performed By: #### 3 1397, 40060, 55754, 64751, 80239 #### [facility] [address] MUMPS IGG BLDon 02-12-2022 MUMPS IGG 5.46 Normal [facility] Comment on above: Result Comment: NORM AL RANGES: < OR = 0.9O NEGATIVE ; NO DETECTABLE IgG ANTIBODY TO MUMPS 0.91 - 1.09 EQUIVOCAL; REPEAT TESTING SUGGESTED > OR = 1.10 POSITIVE ; INDICATES PRESENCE OF DETECTABLE IgG ANTIBODY TO MUMPS Performed By: #### 3 1397, 98178, 45326, 15243, 91523 #### [facility] [address] [facility] RUBELLAon 02-12-2022 RUBELLA 4.79 Normal [facility] Comment on above: Result Comment: NORM AL RANGES: < OR = 0.9O NEGATIVE ; NO DETECTABLE IgG ANTIBODY TO RUBELLA 0.91 - 1.09 EQUIVOCAL; REPEAT TESTING SUGGESTED > OR = 1.10 POSITIVE ; INDICATES PRESENCE OF DETECTABLE IgG ANTIBODY TO RUBELLA VIRUS Performed By: #### 3 1397, 93654, 68629, 09853, 87783 #### [facility] [address] [facility] RUBEOLA MEASLES IGGon 2021 RUBEO IGG 6.43 Normal [facility] Comment on above: Result Comment: NORM AL RANGES: < OR = 0.9O NEGATIVE ; NO DETECTABLE IgG ANTIBODY TO RUBEOLA 0.91 - 1.09 EQUIVOCAL; REPEAT TESTING SUGGESTED > OR = 1.10 POSITIVE ; INDICATES PRESENCE OF DETECTABLE IgG ANTIBODY TO RUBEOLA Performed By: #### 3 1397, 87529, 76140, 41706, 88748 #### [facility] [address] [facility] SINGLE ANTIGEN CLASS 1on METHOD Class I Single Antigen Normal Th e [facility] Comment on above: Order Comment: Some [...] to frequency. Performed By: #### 3 1397, 91738, 24362, 99944, 08245 #### [facility] [address] SINGLE ANTIGEN CLASS 2on COMMENTS Normal [facility] Comment on above: Order Comment: Some [...] watch list. Performed By: #### 3 1397, 35689, 99397, 34951, 94147 #### [facility] [address] Result Comment: Clas s I Antigen Microbeads Potential specificites added to the watch list. CPRA 0 Normal [facility] Comment on above: Order Comment: Some [...] to frequency. Performed By: #### 3 1397, 42351, 24512, 37546, 01654 #### [facility] [address] METHOD Class II Single Antigen Normal T [facility] Comment on above: Order Comment: Some [...] to frequency. Performed By: #### 3 1397, 75278, 26103, 54993, 21758 #### [facility] [address] T PROT UR Yesy 02-12-2022 U TOTAL PROTEIN 44.0 mg/dL Normal [facility] Comment on above: Result Comment: Ther e are no established reference values for random urine specimens Performed By: #### 3 1397, 89752, 60381, 70477, 53938 #### [facility] [address] TB QUANTIFERON PLUSon 2021 MITOGEN MINUS NIL >10.00 Normal [facility] Comment on above: Performed By: #### 3 1592 #### [facility] [address] NIL 0.03 IU/mL Normal [facility] Comment on above: Performed By: #### 3 1592 #### [facility] [address] TB QUANTIFERON Negative Normal NEGATIVE [facility] Comment on above: Result Comment: Jadiel tiferon TB Gold Interpretation (IU/mL): NEGATIVE: M. tuberculosis infection not likely. Nil: <=8.0 TB1 Antigen minus Nil ([id number]): <0.35 OR >=0.35; and <25% of Nil value. TB2 Antigen minus Nil ([id number]-CKE): <0.35 OR >=0.35; and <25% of Nil [...] (https://www.cdc.gov/tb/publications/guidlines/default.htm Performed By: #### 3 1592 #### [facility] [address] TB1 AG 0.05 IU/mL Normal [facility] Comment on above: Performed By: #### 3 1592 #### [facility] [address] TB1 AG MINUS NIL 0.02 IU/mL Normal [facility] Comment on above: Performed By: #### 3 1592 #### [facility] [address] [place] [address], [facility] TB2 AG 0.05 IU/mL Normal [facility] Comment on above: Performed By: #### 3 1592 #### [facility] [address] [facility] [place] [address], [facility] TB2 AG MINUS NIL 0.02 IU/mL Normal [facility] Comment on above: Performed By: #### 3 1592 #### [facility] [address] [facility] [place] [address], [facility] UA,MICROSCOPIC REQUIREDon Appearance (U) SL CLOUDY Abnormal CLEAR [facility] Comment on above: Performed By: #### 3 1397, 88869, 19038, 88022, 24414 #### [facility] [address] [facility] [place] [address], [facility] Bilirubin Ql (U) Negative Normal NEGATIVE [facility] Comment on above: Performed By: #### 3 1397, 40391, 35178, 58649, 54998 #### [facility] [address] [place] [address], [facility] Color (U) STRAW Abnormal YELLOW [facility] Comment on above: Performed By: #### 3 1397, 89922, 15356, 61609, 73556 #### [facility] [address] [place] [address], [facility] EPIS MANY Abnormal FEW,OCC,NONE SEEN [facility] Comment on above: Performed By: #### 3 1397, 39527, 50942, 17848, 44187 #### [facility] [address] [place] [address], [facility] Glucose Ql (U) 50 mg/dL Abnormal NEGATIVE [facility] Comment on above: Performed By: #### 3 1397, 59080, 91565, 92708, 27897 #### [facility] [address] [place] [address], [facility] Hemoglobin Ql (U) Negative Normal NEGATIVE [facility] Comment on above: Performed By: #### 3 1397, 54867, 76182, 04440, 96485 #### [facility] [address] [place] [address], [facility] KETONE Negative Normal NEGATIVE [facility] Comment on above: Performed By: #### 3 1397, 51572, 48550, 62278, 67492 #### [facility] [address] [place] [address], [facility] LEUK MARYAN MODERATE Abnormal NEGATIVE [facility] Comment on above: Performed By: #### 3 1397, 04632, 64902, 01083, 20127 #### [facility] [address] [place] [address], [place] Nitrite Ql (U) Negative Normal NEGATIVE [facility] Comment on above: Performed By: #### 3 1397, 13249, 16996, 50976, 84710 #### [facility] [address] [facility]. [address] pH (U) 7.0 [pH] Normal 5.0-8.0 [facility] Comment on above: Performed By: #### 3 1397, 88465, 89923, 42550, 07172 #### [facility] [address] [facility] Protein Ql (U) 30 mg/dL Abnormal NEGATIVE [facility] Comment on above: Performed By: #### 3 1397, 08276, 57166, 64095, 61405 #### [facility] [address] [facility] RBC NONE SEEN Normal NONE SEEN [facility] Comment on above: Performed By: #### 3 1397, 30958, 02311, 34014, 79748 #### [facility] [address] [facility]. [address] SPEC GRAV 1.009 Low 1.015-1.020 [facility] Comment on above: Performed By: #### 3 1397, 44715, 62292, 24889, 66997 #### [facility] [address] [facility]. [address] WBC UA 11-20 Abnormal NONE SEEN [facility] Comment on above: Performed By: #### 3 1397, 22613, 25015, 99441, 11348 #### [facility] [address] [facility] VARICELLA ZOSTER IGGon 02-12 VARICELLA IGG 3.29 Normal [facility] Comment on above: Result Comment: NORM AL RANGES: < OR = 0.9O NEGATIVE ; NO DETECTABLE IgG ANTIBODY TO VARICELLA-ZOSTER VIRUS 0.91 - 1.09 EQUIVOCAL; REPEAT TESTING SUGGESTED > OR = 1.10 POSITIVE ; INDICATES PRESENCE OF DETECTABLE IgG ANTIBODY TO VARICELLA-ZOSTER VIRUS Performed By: #### 3 1397, 09780, 00744, 27089, 76159 #### [facility] [address] PTH INTACTon 12-04-2021 PTH, Intact 165 pg/mL Critically high 15-65 [facility] Comment on above: Performed By: #### M G, URIC, RENAL #### [facility] [address] [place] [address] Dr. Hari Palmer FERRITINon 12-03-2021 Ferritin [Mass/Vol] 256.0 ng/mL Critically high 6.2-137.0 [facility] Comment on above: Performed By: #### M Edy, URIC, RENAL #### [facility] [address] [place] [address] Dr. Hari Palmer HEMOGRAM AND PLATELon 2021 Hematocrit (Bld) [Volume fraction] 33.7 % Critically low 36.0-48.0 [facility] Comment on above: Performed By: #### M G, URIC, RENAL #### [facility] [address] [place] [address] Dr. Hari Palmer Hemoglobin (Bld) [Mass/Vol] 10.9 g/dL Critically low 12.0-16.0 [facility] Comment on above: Performed By: #### M G, URIC, RENAL #### [facility] [address] [place] [address] Dr. Hari Palmer MCH (RBC) [Entitic mass] 31.4 pg Normal 26.7-34.0 [facility] Comment on above: Performed By: #### M G, URIC, RENAL #### [facility] [address] [place] [address] Dr. Hari Palmer MCHC (RBC) [Mass/Vol] 32.3 g/dL Normal 29.9-35.2 [facility] Comment on above: Performed By: #### M G, URIC, RENAL #### [facility] [address] [place] [address] Dr. Hari Palmer MCV (RBC) [Entitic vol] 97.1 fL Normal 81.0-99.0 [facility] Comment on above: Performed By: #### M G, URIC, RENAL #### [facility] [address] [address] [address] Hari Palmer PLT 314 103/ul Normal 150-450 [facility] Comment on above: Performed By: #### M G, URIC, RENAL #### [facility] [address] [address] [address] Hari Palmer RBC 3.47 106/ul Critically low 4.20-5.40 [facility] Comment on above: Performed By: #### M G, URIC, RENAL #### [facility] [address] [address] [address] Hari Palmer WBC 9.4 103/ul Normal 4.0-11.0 [facility] Comment on above: Performed By: #### M G, URIC, RENAL #### [facility] [address] [place] [address] Dr. Hari Palmer IRON AND TIBCon 12-03-2021 % SATURATION 19.0 % Normal [facility] Comment on above: Performed By: #### M G, URIC, RENAL #### [facility] [address] [address] [address] Hari Palmer Iron [Mass/Vol] 52.0 ug/dL Normal 37.0-170.0 [facility] Comment on above: Performed By: #### M G, URIC, RENAL #### [facility] [address] [address] [address] Hari Palmer TIBC DIRECT 273.0 ug/dL Normal 261.0-497.0 [facility] Comment on above: Performed By: #### M G, URIC, RENAL #### [facility] [address] [address] [address] Hari Palmer MAGNESIUMon 12-03-2021 Magnesium [Mass/Vol] 2.1 mg/dL Normal 1.6-2.3 [facility] Comment on above: Performed By: #### M G, URIC, RENAL #### [facility] [address] [place] [address] Dr. Hari Palmer RENAL FUNCTION PANELon 12-03 Albumin [Mass/Vol] 3.6 g/dL Normal 3.5-5.0 [facility] Comment on above: Performed By: #### M G, URIC, RENAL #### [facility] [address] [place] [address] Dr. Hari Palmer Calcium [Mass/Vol] 8.4 mg/dL Normal 8.4-10.2 [facility] Comment on above: Performed By: #### M G, URIC, RENAL #### [facility] [address] [place] [address] Dr. Hari Palmer Chloride [Moles/Vol] 101 mmol/L Normal 98-107 [facility] Comment on above: Performed By: #### M Edy, URIC, RENAL #### [facility] [address] [place] [address] Dr. Hari Palmer CO2 [Moles/Vol] 24.3 mmol/L Normal 22.0-30.0 [facility] Comment on above: Performed By: #### M G, URIC, RENAL #### [facility] [address] [place] [address] Dr. Hari Palmer Creatinine [Mass/Vol] 3.32 mg/dL Critically high 0.52-1.04 [facility] Comment on above: Performed By: #### M G, URIC, RENAL #### [facility] [address] [place] [address] Dr. Hari Palmer EGFR-AF FRENCH 18 mL/min/1.73m2 Critically low >=60 [facility] Comment on above: Performed By: #### M G, URIC, RENAL #### [facility] [address] [place] [address] Dr. Hari Palmer EGFR-NON AF FRENCH 15 mL/min/1.73m2 Critically low >=60 [facility] Comment on above: Performed By: #### M G, URIC, RENAL #### [facility] [address] [place] [address] Dr. Hari Palmer Glucose [Mass/Vol] 119 mg/dL Critically high 74-106 T [facility] Comment on above: Performed By: #### M G, URIC, RENAL #### [facility] [address] [address] [address] Hari Palmer Phosphate [Mass/Vol] 4.7 mg/dL Critically high 2.5-4.5 [facility] Comment on above: Performed By: #### M G, URIC, RENAL #### [facility] [address] [place] [address] Dr. Hari Palmer Potassium [Moles/Vol] 4.0 mmol/L Normal 3.4-5.0 [facility] Comment on above: Performed By: #### M G, URIC, RENAL #### [facility] [address] [place] [address] Dr. Hari Palmer Sodium [Moles/Vol] 135 mmol/L Critically low 137-145 [facility] Comment on above: Performed By: #### M G, URIC, RENAL #### [facility] [address] [place] [address] Dr. Hari Palmer Urea nitrogen [Mass/Vol] 42.0 mg/dL Critically high 7.0-17.0 [facility] Comment on above: Performed By: #### M G, URIC, RENAL #### [facility] [address] [place] [address] Dr. Hari Palmer UA RANDOM W/MICROSCOPICon BACTERIA TRACE Abnormal NONE SEEN [facility] Comment on above: Performed By: #### U AMIC #### [facility] [address] [place] [address] Dr. Hari Palmer Bilirubin Ql (U) Negative Normal NEGATIVE [facility] Comment on above: Performed By: #### U AMIC #### [facility] [address] [place] [address] Dr. Hari Palmer CAST NONE SEEN Normal NONE SEEN [facility] Comment on above: Performed By: #### U AMIC #### [facility] [address] [place] [address] Dr. Hari Palmer Clarity (U) CLEAR Normal CLEAR [facility] Comment on above: Performed By: #### U AMIC #### [facility] [address] [address] [address] Hari Palmer Color (U) LT. YELLOW Normal YELLOW [facility] Comment on above: Performed By: #### U AMIC #### [facility] [address] [place] [address] Dr. Hari Palmer Crystals LM Nom (Urine sed) NONE SEEN Normal NONE SEEN [facility] Comment on above: Performed By: #### U AMIC #### [facility] [address] [address] [address] Hari Palmer Epithelial cells LM Ql (Urine sed) FEW Abnormal NONE SEEN /RARE [facility] Comment on above: Performed By: #### U AMIC #### [facility] [address] [place] [address] Dr. Hari Palmer Glucose Ql (U) 100 mg/dl Abnormal NEGATIVE [facility] Comment on above: Performed By: #### U AMIC #### [facility] [address] [place] [address] Dr. Hari Palmer Hemoglobin Ql (U) TRACE-INTACT Abnormal NEGATIVE [facility] Comment on above: Performed By: #### U AMIC #### [facility] [address] [place] [address] Dr. Hari Palmer Ketones Ql (U) Negative Normal NEGATIVE [facility] Comment on above: Performed By: #### U AMIC #### [facility] [address] [place] [address] Dr. Hari Palmer LEUKOCYTES SMALL Abnormal NEGATIVE [facility] Comment on above: Performed By: #### U AMIC #### [facility] [address] [place] [address] Dr. Hari Palmer MUCOUS NONE SEEN Normal NONE SEEN [facility] Comment on above: Performed By: #### U AMIC #### [facility] [address] [place] [address] Dr. Hari Palmer Nitrite Ql (U) Negative Normal NEGATIVE [facility] Comment on above: Performed By: #### U AMIC #### [facility] [address] [place] [address] Dr. Hari Palmer pH (U) 6.0 [pH] Normal 5-9 [facility] Comment on above: Performed By: #### U AMIC #### [facility] [address] [place] [address] Dr. Hari Palmer RBC 0-2 Normal 0-2 [facility] Comment on above: Performed By: #### U AMIC #### [facility] [address] [address] [address] Hari Palmer SPEC GRAVITY 1.010 Normal 1.005-<=1.02 5 [facility] Comment on above: Performed By: #### U AMIC #### [facility] [address] [address] [address] Hari Palmer UA PROTEIN Negative Normal NEGATIVE/ TRACE [facility] Comment on above: Performed By: #### U AMIC #### [facility] [address] [place] [address] Dr. Hari Palmer Urobilinogen Qn (U) 0.2 {Janice'U}/dL Normal 0.2 - 1. 0 [facility] Comment on above: Performed By: #### U AMIC #### [facility] [address] [place] [address] Dr. Hari Palmer WBC 5-10 Abnormal NONE SEEN [facility] Comment on above: Performed By: #### U AMIC #### [facility] [address] [place] [address] Dr. Hari Palmer URIC ACID SERUMon 12-03-2021 Urate [Mass/Vol] 4.6 mg/dL Normal 2.5-6.2 [facility] Comment on above: Performed By: #### M G, URIC, RENAL #### [facility] [address] [address] [address] Hari Palmer URINE T PROTEIN CREAT RATIOo n 12-03-2021 Protein (U) [Mass/Vol] 31.7 mg/dL Critically high <=12.0 [facility] Comment on above: Performed By: #### M G, URIC, RENAL #### [facility] [address] [place] [address] Dr. Hari Palmer UR PROT CREAT RAT 0.54 Normal [facility] Comment on above: Performed By: #### M G, URIC, RENAL #### [facility] [address] [place] [address] Dr. Hari Palmer URINE CREAT 59.03 mg/dL Normal 20.00-300.00 [facility] Comment on above: Performed By: #### M G, URIC, RENAL #### [facility] [address] [place] [address] Dr. Hari Palmer VITAMIN D 25 OHon 12-03-2021 VIT D 25-OH 38.1 ng/mL Normal [facility] Comment on above: Performed By: #### M G, URIC, RENAL #### [facility] [address] [place] [address] Dr. Hari Palmer VIT D RANGES SEE BELOW Normal [facility] Comment on above: Result Comment: <20 ng/mL Vit D deficient 20 - <30 ng/mL Vit D insufficient 30 - 100 ng/mL Vit D sufficient >100 ng/mL Potential Toxicity Performed By: #### M G, URIC, RENAL #### [facility] [address] [place] [address] Dr. Hari Palmer PTH INTACTon 09-03-2021 PTH, Intact 177 pg/mL Critically high 15-65 [facility] Comment on above: Performed By: #### P THINT #### [facility] [address] [place] [address] Dr. Hari Palmer CBC AUTO DIFFon 09-01-2021 BASO # 0.1 103/ul Normal 0.0-0.1 [facility] Comment on above: Performed By: #### M G, URIC, RENAL #### [facility] [address] [place] [address] Dr. Hari Palmer Basophils/100 WBC (Bld) 0.6 % Normal 0.2-2.0 T [facility] Comment on above: Performed By: #### M G, URIC, RENAL #### [facility] [address] [place] [address] Dr. Hari Palmer EO # 0.3 103/ul Normal 0.0-0.7 [facility] Comment on above: Performed By: #### M G, URIC, RENAL #### [facility] [address] [place] [address] Dr. Hari Palmer Eosinophils/100 WBC (Bld) 3.5 % Normal 0.9-7.0 [facility] Comment on above: Performed By: #### M G, URIC, RENAL #### [facility] [address] [place] [address] Dr. Hari Palmer Erythrocyte distribution width (RBC) [Ratio] 13.8 % Normal 11.0-15.0 [facility] Comment on above: Performed By: #### M G, URIC, RENAL #### [facility] [address] [place] [address] Dr. Hari Palmer Hematocrit (Bld) [Volume fraction] 32.8 % Critically low 36.0-48.0 [facility] Comment on above: Performed By: #### M G, URIC, RENAL #### [facility] [address] [place] [address] Dr. Hari Palmer Hemoglobin (Bld) [Mass/Vol] 10.6 g/dL Critically low 12.0-16.0 [facility] Comment on above: Performed By: #### M G, URIC, RENAL #### [facility] [address] [place] [address] Dr. Hari Palmer IG # 0.14 10e3/ul Critically high 0.00-0.03 [facility] Comment on above: Performed By: #### M G, URIC, RENAL #### [facility] [address] [place] [address] Dr. Hari Palmer IG % 1.5 % Critically high 0.0-0.5 [facility] Comment on above: Performed By: #### M G, URIC, RENAL #### [facility] [address] [place] [address] Dr. Hari Palmer LYMPH # 1.8 103/ul Normal 1.2-3.8 [facility] Comment on above: Performed By: #### M G, URIC, RENAL #### [facility] [address] [place] [address] Dr. Hari Palmer Lymphocytes/100 WBC (Bld) 19.3 % Critically low 20.5-60.0 [facility] Comment on above: Performed By: #### M G, URIC, RENAL #### [facility] [address] [place] [address] Dr. Hari Palmer MANUAL DIFF REQ NO Normal [facility] Comment on above: Performed By: #### M G, URIC, RENAL #### [facility] [address] [place] [address] Dr. Hari Palmer MCH (RBC) [Entitic mass] 31.4 pg Normal 26.7-34.0 [facility] Comment on above: Performed By: #### M G, URIC, RENAL #### [facility] [address] [place] [address] Dr. Hari Palmer MCHC (RBC) [Mass/Vol] 32.3 g/dL Normal 29.9-35.2 [facility] Comment on above: Performed By: #### M G, URIC, RENAL #### [facility] [address] [place] [address] Dr. Hari Palmer MCV (RBC) [Entitic vol] 97.0 fL Normal 81.0-99.0 [facility] Comment on above: Performed By: #### M G, URIC, RENAL #### [facility] [address] [place] [address] Dr. Hari Palmer MONO # 0.4 103/ul Normal 0.3-0.8 [facility] Comment on above: Performed By: #### M G, URIC, RENAL #### [facility] [address] [place] [address] Dr. Hari Palmer Monocytes/100 WBC (Bld) 4.2 % Normal 1.7-12.0 [facility] Comment on above: Performed By: #### M G, URIC, RENAL #### [facility] [address] [place] [address] Dr. Hari Palmer NEUT # 6.5 103/ul Normal 1.4-6.5 [facility] Comment on above: Performed By: #### M G, URIC, RENAL #### [facility] [address] [address] [address] Hari Palmer Neutrophils/100 WBC (Bld) 70.9 % Normal 43.0-75.0 [facility] Comment on above: Performed By: #### M G, URIC, RENAL #### [facility] [address] [place] [address] Dr. Hari Palmer Platelet mean volume (Bld) [Entitic vol] 9.0 fL Critically low 9.5-13.5 [facility] Comment on above: Performed By: #### M G, URIC, RENAL #### [facility] [address] [place] [address] Dr. Hari Palmer PLT 289 103/ul Normal 150-450 [facility] Comment on above: Performed By: #### M G, URIC, RENAL #### [facility] [address] [place] [address] Dr. Hari Palmer RBC 3.38 106/ul Critically low 4.20-5.40 [facility] Comment on above: Performed By: #### M G, URIC, RENAL #### [facility] [address] [place] [address] Dr. Hari Palmer WBC 9.1 103/ul Normal 4.0-11.0 [facility] Comment on above: Performed By: #### M G, URIC, RENAL #### [facility] [address] [place] [address] Dr. Hari Palmer FERRITINon 09-01-2021 Ferritin [Mass/Vol] 204.0 ng/mL Critically high 6.2-137.0 [facility] Comment on above: Performed By: #### M G, URIC, RENAL #### [facility] [address] [place] [address] Dr. Hari Palmer IRON AND TIBCon 09-01-2021 % SATURATION 28.4 % Normal [facility] Comment on above: Performed By: #### M G, URIC, RENAL #### [facility] [address] [place] [address] Dr. Hari Palmer Iron [Mass/Vol] 80.0 ug/dL Normal 37.0-170.0 [facility] Comment on above: Performed By: #### M G, URIC, RENAL #### [facility] [address] [address] [address] Hari Palmer TIBC DIRECT 282.0 ug/dL Normal 261.0-497.0 [facility] Comment on above: Performed By: #### M G, URIC, RENAL #### [facility] [address] [address] [address] Hari Palmer MAGNESIUMon 09-01-2021 Magnesium [Mass/Vol] 2.2 mg/dL Normal 1.6-2.3 [facility] Comment on above: Performed By: #### U AMIC #### [facility] [address] [place] [address] Dr. Hari Palmer RENAL FUNCTION PANELon 09-01 Albumin [Mass/Vol] 3.5 g/dL Normal 3.5-5.0 [facility] Comment on above: Performed By: #### M G, URIC, RENAL #### [facility] [address] [address] [address] Hari Palmer Calcium [Mass/Vol] 8.7 mg/dL Normal 8.4-10.2 [facility] Comment on above: Performed By: #### M G, URIC, RENAL #### [facility] [address] [address] [address] Hari Palmer Chloride [Moles/Vol] 105 mmol/L Normal 98-107 [facility] Comment on above: Performed By: #### M G, URIC, RENAL #### [facility] [address] [address] [address] Hari Palmer CO2 [Moles/Vol] 21.1 mmol/L Critically low 22.0-30.0 [facility] Comment on above: Performed By: #### M G, URIC, RENAL #### [facility] [address] [address] [address] Hari Palmer Creatinine [Mass/Vol] 3.63 mg/dL Critically high 0.52-1.04 [facility] Comment on above: Performed By: #### M G, URIC, RENAL #### [facility] [address] [address] [address] Hari Palmer EGFR-AF FRENCH 16 mL/min/1.73m2 Critically low >=60 [facility] Comment on above: Performed By: #### M G, URIC, RENAL #### [facility] [address] [address] [address] Hari Palmer EGFR-NON AF FRENCH 14 mL/min/1.73m2 Critically low >=60 [facility] Comment on above: Performed By: #### M G, URIC, RENAL #### [facility] [address] [place] [address] Dr. Hari Palmer Glucose [Mass/Vol] 115 mg/dL Critically high 74-106 [facility] Comment on above: Performed By: #### M G, URIC, RENAL #### [facility] [address] [place] [address] Dr. Hari Palmer Phosphate [Mass/Vol] 4.6 mg/dL Critically high 2.5-4.5 [facility] Comment on above: Performed By: #### M G, URIC, RENAL #### [facility] [address] [place] [address] Dr. Hari Palmer Potassium [Moles/Vol] 4.2 mmol/L Normal 3.4-5.0 [facility] Comment on above: Performed By: #### M G, URIC, RENAL #### [facility] [address] [place] [address] Dr. Hari Palmer Sodium [Moles/Vol] 138 mmol/L Normal 137-145 [facility] Comment on above: Performed By: #### M G, URIC, RENAL #### [facility] [address] [place] [address] Dr. Hari Palmer Urea nitrogen [Mass/Vol] 50.0 mg/dL Critically high 7.0-17.0 [facility] Comment on above: Performed By: #### M G, URIC, RENAL #### [facility] [address] [place] [address] Dr. Hari Palmer UA RANDOM W/MICROSCOPICon BACTERIA SMALL Abnormal NONE SEEN [facility] Comment on above: Performed By: #### U AMIC #### [facility] [address] [place] [address] Dr. Hari Palmer Bilirubin Ql (U) Negative Normal NEGATIVE [facility] Comment on above: Performed By: #### U AMIC #### [facility] [address] [place] [address] Dr. Hari Palmer CAST NONE SEEN Normal NONE SEEN [facility] Comment on above: Performed By: #### U AMIC #### [facility] [address] [place] [address] Dr. Hari Palmer Clarity (U) CLEAR Normal CLEAR [facility] Comment on above: Performed By: #### U AMIC #### [facility] [address] [place] [address] Dr. Hari Palmer Color (U) LT. YELLOW Normal YELLOW [facility] Comment on above: Performed By: #### U AMIC #### [facility] [address] [place] [address] Dr. Hari Palmer Crystals LM Nom (Urine sed) NONE SEEN Normal NONE SEEN [facility] Comment on above: Performed By: #### U AMIC #### [facility] [address] [place] [address] Dr. Hari Palmer Epithelial cells LM Ql (Urine sed) MODERATE Abnormal NONE SEEN /RARE [facility] Comment on above: Performed By: #### U AMIC #### [facility] [address] [place] [address] Dr. Hari Palmer Glucose Ql (U) Negative Normal NEGATIVE [facility] Comment on above: Performed By: #### U AMIC #### [facility] [address] [place] [address] Dr. Hari Palmer Hemoglobin Ql (U) TRACE-INTACT Abnormal NEGATIVE [facility] Comment on above: Performed By: #### U AMIC #### [facility] [address] [place] [address] Dr. Hari Palmer Ketones Ql (U) Negative Normal NEGATIVE [facility] Comment on above: Performed By: #### U AMIC #### [facility] [address] [address] [address] Hari Palmer LEUKOCYTES Negative Normal NEGATIVE [facility] Comment on above: Performed By: #### U AMIC #### [facility] [address] [place] [address] Dr. Hari Palmer MUCOUS NONE SEEN Normal NONE SEEN [facility] Comment on above: Performed By: #### U AMIC #### [facility] [address] [place] [address] Dr. Hari Palmer Nitrite Ql (U) Negative Normal NEGATIVE [facility] Comment on above: Performed By: #### U AMIC #### [facility] [address] [place] [address] Dr. Hari Palmer pH (U) 6.0 [pH] Normal 5-9 [facility] Comment on above: Performed By: #### U AMIC #### [facility] [address] [place] [address] Dr. Hari Palmer RBC 2-5 Abnormal 0-2 [facility] Comment on above: Performed By: #### U AMIC #### [facility] [address] [place] [address] Dr. Hari Palmer SPEC GRAVITY 1.010 Normal 1.005-<=1.02 5 [facility] Comment on above: Performed By: #### U AMIC #### [facility] [address] [place] [address] Dr. Hari Palmer UA PROTEIN Negative Normal NEGATIVE/ TRACE [facility] Comment on above: Performed By: #### U AMIC #### [facility] [address] [address] [address] Hari Palmer Urobilinogen Qn (U) 0.2 {Janice'U}/dL Normal 0.2 - 1. 0 [facility] Comment on above: Performed By: #### U AMIC #### [facility] [address] [place] [address] Dr. Hari Palmer WBC 2-5 Abnormal NONE SEEN [facility] Comment on above: Performed By: #### U AMIC #### [facility] [address] [place] [address] Dr. Hari Palmer URIC ACID SERUMon 09-01-2021 Urate [Mass/Vol] 4.9 mg/dL Normal 2.5-6.2 [facility] Comment on above: Performed By: #### U AMIC #### [facility] [address] [place] [address] Dr. Hari Palmer URINE T PROTEIN CREAT RATIOo n 09-01-2021 Protein (U) [Mass/Vol] 22.2 mg/dL Critically high <=12.0 [facility] Comment on above: Performed By: #### M G, URIC, RENAL #### [facility] [address] [place] [address] Dr. Hari Palmer UR PROT CREAT RAT 0.47 Normal [facility] Comment on above: Performed By: #### M G, URIC, RENAL #### [facility] [address] [place] [address] Dr. Hari Palmer URINE CREAT 46.89 mg/dL Normal 20.00-300.00 [facility] Comment on above: Performed By: #### M G, URIC, RENAL #### [facility] [address] [place] [address] Dr. Hari Palmer VITAMIN D 25 OHon 09-01-2021 VIT D 25-OH 40.5 ng/mL Normal [facility] Comment on above: Performed By: #### M G, URIC, RENAL #### [facility] [address] [place] [address] Dr. Hari Palmer VIT D RANGES SEE BELOW Normal [facility] Comment on above: Result Comment: <20 ng/mL Vit D deficient 20 - <30 ng/mL Vit D insufficient 30 - 100 ng/mL Vit D sufficient >100 ng/mL Potential Toxicity Performed By: #### M G, URIC, RENAL #### [facility] [address] [place] [address] Dr. Hari Palmer CNOVon 03-30-2021 CNOV Office Visit (NEPHMN ) -------- MANDEEP PURI ([id number]) 1975 F Date Time Provider Department 03/30/21 9:20 AM PERRI BARRETT NEPHMN During your visit today, we recorded the following information about you: Temperature Pulse Blood pressure Weight 98.2 degrees 75/minute 122/77 93 kg Height 1.549 m Perri Barrett MD 03/30/2021 10:25 AM Signed Mrs. Puri is a 45 year old from [place], [place] here with her hyusbandEvan seen at [...] SOCIAL / FAMILY Hx: ADPKD, CAD OCCUPATION: [employer] ADL / LIVING SITUATION: MARITAL STATUS:M CHILDREN: [...] (rapamycin) 4 weeks Referring Provider: YANETH MUÑOZ [[id number]] Allergies As of Date: 03/30/2021 Noted Allergy [...] by mouth. (more content not included)... Normal [facility] Urinalysison 03-30-2021 Bilirubin, Urine Negative Normal Negative [facility] Comment on above: Performed By: #### U A #### [facility] [address] [address] Clarity (U) Clear Normal Clear [facility] Comment on above: Performed By: #### U A #### [facility] [address] [place], [place] [address] Color (U) Colorless Critically abnormal Yellow [facility] Comment on above: Performed By: #### U A #### [facility] [address] [id number] Comments SEE COMMENT Normal [facility] Comment on above: Result Comment: Micr oscopic not warranted Performed By: #### U A #### [facility] [address] [address] Glucose Ql (U) Trace Critically abnormal Negative [facility] Comment on above: Performed By: #### U A #### [address] [address] Hemoglobin/Blood,Ur Negative Normal Negative [facility] Comment on above: Performed By: #### U A #### [address] [address] Ketones Ql (U) Negative Normal Negative [facility] Comment on above: Performed By: #### U A #### [id number] [address] Leukest Negative Normal Negative [facility] Comment on above: Performed By: #### U A #### [address] [place], [place] [address] Nitrite Ql (U) Negative Normal Negative [facility] Comment on above: Performed By: #### U A #### [facility] [address] [place], [place] [address] pH (U) 6.5 [pH] Normal 5.0-8.0 [facility] Comment on above: Performed By: #### U A #### [address] [place], [place] [address] Protein, Urine Negative Normal Negative [facility] Comment on above: Performed By: #### U A #### [address] [address] [place], [place] [address] Specific [place], Ur 1.008 Normal 1.005-1.030 [facility] Comment on above: Performed By: #### U A #### [facility] [address] [place], [place] [address] Urine Codi Comment SEE COMMENT Normal [facility] Comment on above: Result Comment: N/A Performed By: #### U A #### [facility] [address] [place], [place] [address] Urobilinogen (U) [Mass/Vol] Negative Normal Negative [facility] Comment on above: Performed By: #### U A #### [facility] [address] [place], [place] [address] Coding Summary.on 04-21-2020 Coding Summary. CODING DATE: 020 [facility] STATUS: Home (Routine DC) PAYOR: Medical [employer] ADMIT DX: REASON FOR VISIT DX: [id number] [...] Saved: 04/21/2020 05:17 pm Normal [facility] Physician Orderon 04-21-2020 Physician Order [id number]: 127 Normal [facility] Marci 04-12-2020 ALT [Catalytic activity/Vol] 14 U/L Normal 7 - 45 [facility] Comment on above: Result Comment: Kelsea ents treated with Sulfasalazine may generate falsely decreased results for ALT. Performed By: #### A LT #### [facility] [address] [place] [address] Ronald 04-12-2020 AST [Catalytic activity/Vol] 16 U/L Normal 9 - 39 [facility] Comment on above: Performed By: #### A ST #### [facility] [address] [place] [address] CREATININEon 04-12-2020 Creatinine [Mass/Vol] 2.83 mg/dL High 0.50 - 1.05 [facility] Comment on above: Performed By: #### C REAT #### [facility] [address] [place] [address] Creatinine [Mass/Vol] 18 mL/min/1.73m2 Abnormal >60 [facility] Comment on above: Performed By: #### C REAT #### [facility] [address] [place] [address] Creatinine [Mass/Vol] 22 mL/min/1.73m2 Abnormal >60 [facility] Comment on above: Result Comment: CALC ULATIONS OF ESTIMATED GFR ARE PERFORMED USING THE MDRD STUDY EQUATION FOR THE IDMS-TRACEABLE CREATININE METHODS. CLIN CHEM 2007;53:766-72 Performed By: #### C REAT #### [facility] [address] [place] [address] URIC ACIDon 04-12-2020 Urate [Mass/Vol] 5.2 mg/dL Normal 2.3 - 6.7 [facility] Comment on above: Result Comment: Beti puncture immediately after or during the administration of Metamizole may lead to falsely low results. Testing should be performed immediately prior to Metamizole dosing. Performed By: #### U DASHAWN #### [facility] [address] [place] [address] URIC ACIDon 02-11-2020 Urate [Mass/Vol] 8.2 mg/dL High 2.3 - 6.7 [facility] Comment on above: Result Comment: Beti puncture immediately after or during the administration of Metamizole may lead to falsely low results. Testing should be performed immediately prior to Metamizole dosing. Performed By: #### U DASHAWN #### [facility] [address] [place] [address] Cult,Urineon 08-04-2019 Cult,Urine Specimen Description .CLEAN CATCH URINE Special Requests NOT REPORTED Culture ESCHERICHIA COLI >[id number] CFU/ML Report Status FINAL 08/04/2019 SUSCEPTIBILITY Organism [...] Trimethoprim/Sulfa <=20 SUSCEPTIBLE Piperacillin/Tazobactam <=4 SUSCEPTIBLE Normal [facility] Comment on above: Performed By: #### D CITLALY, LIP, CMPX, TROPI, BNP, CDP, PT #### [facility] [place] [facility] [address] [place] [address] [place] [address] [employer] Juice: Sami Dominguez MD Brain Natri. Peptideon 08-02 Natriuretic peptide B (Bld) [Mass/Vol] 152 pg/mL Normal <300 [facility] Comment on above: Result Comment: Pro- BNP results cannot be compared to BNP results. Performed By: #### D CITLALY, LIP, CMPX, TROPI, BNP, CDP, PT #### [address] [place] [address] [employer] Juice: Sami Dominguez MD Natriuretic peptide B (Bld) [Mass/Vol] Pro-BNP Reference Range: Normal [facility] Comment on above: Result Comment: Rule Out: <300 Parra Zone: Age <50 300-450 Age 50-75 300-900 Age >75 300-1800 Usually represents mild to moderate HF but other cardiopulmonary causes cannot be ruled out. Rule In: Age <50 >450 Age 50-75 >900 Age >75 >1800 Performed By: #### D CITLALY, LIP, CMPX, TROPI, BNP, CDP, PT #### [address] [place] [address] [employer] Juice: Sami Dominguez MD Brain Natriuretic Peptideon 08-02-2019 Natriuretic peptide B (Bld) [Mass/Vol] 152 pg/mL <300 [place], [place] Comment on above: Pro-BNP results eric ot be compared to BNP results. Natriuretic peptide B (Bld) [Mass/Vol] Pro-BNP Reference Range: [place], [place] Comment on above: Rule Out: <300 Parra Zone: Age <50 300-450 Age 50-75 300-900 Age >75 300-1800 Usually represents mild to moderate HF but other cardiopulmonary causes cannot be ruled out. Rule In: Age <50 >450 Age 50-75 >900 Age >75 >1800 CBC Auto Differentialon 07-07 Basophils (Bld) [#/Vol] 0.00 10*3/uL [place] Basophils/100 WBC (Bld) 0 % 0 - 2 % M [place] Differential Type NOT REPORTED [place] Eosinophils (Bld) [#/Vol] 0.08 10*3/uL [place] Eosinophils/100 WBC (Bld) 1 % 1 - 4 % [place] Erythrocyte distribution width (RBC) [Ratio] 13.2 % 11.8 - 14.4 % [place] Hematocrit (Bld) [Volume fraction] 33.7 % Low 36.3 - 47.1 % [place] Hemoglobin (Bld) [Mass/Vol] 10.7 g/dL Low 11.9 - 15.1 g/dL [place] Immature granulocytes (Bld) [#/Vol] 0 % 0 [place] Immature granulocytes (Bld) [#/Vol] 0.00 10*3/uL [place] Interpretation and review of laboratory results Abnormal [place] Lymphocytes (Bld) [#/Vol] 0.90 10*3/uL [place] Lymphocytes/100 WBC (Bld) 12 % Low 24 - 43 % [place] MCH (RBC) [Entitic mass] 30.2 pg 25.2 - 33.5 pg [place] MCHC (RBC) [Mass/Vol] 31.8 g/dL 28.4 - 34.8 g/dL [place] MCV (RBC) [Entitic vol] 95.2 fL 82.6 - 102.9 fL [place] Monocytes (Bld) [#/Vol] 0.00 10*3/uL [place] Monocytes/100 WBC (Bld) 0 % Low 3 - 12 % [place] Morphology Geovany (Bld) [Interp] Normal [place] Platelet mean volume (Bld) [Entitic vol] 8.6 fL 8.1 - 13.5 fL [place] Platelets (Bld) [#/Vol] NOT REPORTED [place] Platelets (Bld) [#/Vol] 335 10*3/uL [place] RBC (Bld) [#/Vol] 3.54 10*6/uL Low 3.95 - 5.1 1 m/uL [place] RBC morphology finding Nom (Bld) NOT REPORTED [place] Segmented neutrophils/100 WBC (Bld) 87 % High 36 - 65 % [place] Segs Absolute 6.52 [place] WBC (Bld) [#/Vol] 7.5 10*3/uL [place] WBC (Bld) [#/Vol] 0.0 10*3/uL 0.0 per 10 0 WBC [place] WBC Morphology NOT REPORTED [place] CBC with Diffon 08-02-2019 Abs. Basophil 0.00 k/uL Normal 0.0-0.2 [facility] Comment on above: Performed By: #### D CITLALY, LIP, CMPX, TROPI, BNP, CDP, PT #### [facility] [address] [place] [address] [employer]: Sami Dominguez MD Abs.Imm.Granulocyte 0.00 k/uL Normal 0.00-0.30 [facility] Comment on above: Performed By: #### D CITLALY, LIP, CMPX, TROPI, BNP, CDP, PT #### [facility] [address] [place], [id number] [employer]: Sami Dominguez MD Abs.Neutrophil (Seg) 6.52 k/uL Normal 1.50-8.10 [facility] Comment on above: Performed By: #### D CITLALY, LIP, CMPX, TROPI, BNP, CDP, PT #### [facility] [address] [place], [facility] [employer]: Sami Dominguez MD Basophils/100 WBC (Bld) 0 % Normal 0-2 [facility] Comment on above: Performed By: #### D CITLALY, LIP, CMPX, TROPI, BNP, CDP, PT #### [address] [place] [address] [employer]: Sami Dominguez MD Eosinophils (Bld) [#/Vol] 0.08 10*3/uL Normal 0.00-0.44 [facility] Comment on above: Performed By: #### D CITLALY, LIP, CMPX, TROPI, BNP, CDP, PT #### [address] [place], [facility] [employer]: Sami Dominguez MD Eosinophils/100 WBC (Bld) 1 % Normal 1-4 [facility] Comment on above: Performed By: #### D CITLALY, LIP, CMPX, TROPI, BNP, CDP, PT #### [address] [place], [facility] [employer]: Sami Dominguez MD Immature granulocytes (Bld) [#/Vol] 0 % Normal 0 [facility] Comment on above: Performed By: #### D CITLALY, LIP, CMPX, TROPI, BNP, CDP, PT #### [facility] [address] [place], [facility] [employer]: Sami Dominguez MD Lymphocytes (Bld) [#/Vol] 0.90 10*3/uL Low 1.10-3.70 [facility] Comment on above: Performed By: #### D CITLALY, LIP, CMPX, TROPI, BNP, CDP, PT #### [facility] [address] [place], [place] [id number] [employer]: Sami Dominguez MD Lymphocytes/100 WBC (Bld) 12 % Low 24-43 [facility] Comment on above: Performed By: #### D CITLALY, LIP, CMPX, TROPI, BNP, CDP, PT #### [facility] [address] [place], [place] [id number] [employer]: Sami Dominguez MD Monocytes (Bld) [#/Vol] 0.00 10*3/uL Low 0.10-1.20 [facility] Comment on above: Performed By: #### D CITLALY, LIP, CMPX, TROPI, BNP, CDP, PT #### [facility] [address] [place], [place] [id number] [employer]: Sami Dominguez MD Monocytes/100 WBC (Bld) 0 % Low 3-12 [facility] Comment on above: Performed By: #### D CITLALY, LIP, CMPX, TROPI, BNP, CDP, PT #### [facility] [address] [place], [place] [id number] [employer]: Sami Dominguez MD Morphology Geovany (Bld) [Interp] Normal Normal [facility] Comment on above: Performed By: #### D CITLALY, LIP, CMPX, TROPI, BNP, CDP, PT #### [facility] [address] [place], [place] [id number] [employer]: Sami Dominguez MD Neutrophil (Seg) 87 % High 36-65 [facility] Comment on above: Performed By: #### D CITLALY, LIP, CMPX, TROPI, BNP, CDP, PT #### [facility] [address] [place] [address] Dr[address] [place] [facility] [employer]: Sami Dominguez MD Erythrocyte distribution width (RBC) [Ratio] 13.2 % Normal 11.8-14.4 [facility] Comment on above: Performed By: #### D CITLALY, LIP, CMPX, TROPI, BNP, CDP, PT #### [facility] [address] [place], [facility] [employer]: Sami Dominguez MD Hematocrit (Bld) [Volume fraction] 33.7 % Low 36.3-47.1 [facility] Comment on above: Performed By: #### D CITLALY, LIP, CMPX, TROPI, BNP, CDP, PT #### [address] [place] [id number] [employer]: Sami Dominguez MD Hemoglobin (Bld) [Mass/Vol] 10.7 g/dL Low 11.9-15.1 [facility] Comment on above: Performed By: #### D CITLALY, LIP, CMPX, TROPI, BNP, CDP, PT #### [address] [place], [facility] [employer]: Sami Dominguez MD MCH (RBC) [Entitic mass] 30.2 pg Normal 25.2-33.5 [facility] Comment on above: Performed By: #### D CITLALY, LIP, CMPX, TROPI, BNP, CDP, PT #### [address] [place], [facility] [employer]: Sami Dominguez MD MCHC (RBC) [Mass/Vol] 31.8 g/dL Normal 28.4-34.8 [facility] Comment on above: Performed By: #### D CITLALY, LIP, CMPX, TROPI, BNP, CDP, PT #### [address] [place] [id number] [employer]: Sami Dominguez MD MCV (RBC) [Entitic vol] 95.2 fL Normal 82.6-102.9 [facility] Comment on above: Performed By: #### D CITLALY, LIP, CMPX, TROPI, BNP, CDP, PT #### [facility] [address] [place], [facility] [employer]: Sami Dominguez MD NRBC Automated 0.0 per 100 WBC Normal 0.0 [facility] Comment on above: Performed By: #### D CITLALY, LIP, CMPX, TROPI, BNP, CDP, PT #### [facility] [address] [place], [facility] [employer]: Sami Dominguez MD Platelet mean volume (Bld) [Entitic vol] 8.6 fL Normal 8.1-13.5 [facility] Comment on above: Performed By: #### D CITLALY, LIP, CMPX, TROPI, BNP, CDP, PT #### [facility] [address] [place], [facility] [employer]: Sami Dominguez MD Platelets (Bld) [#/Vol] 335 10*3/uL Normal 138-453 [facility] Comment on above: Performed By: #### D CITLALY, LIP, CMPX, TROPI, BNP, CDP, PT #### [facility] [address] [place], [facility] [employer]: Sami Dominguez MD RBC (Bld) [#/Vol] 3.54 10*6/uL Low 3.95-5.11 [facility] Comment on above: Performed By: #### D CITLALY, LIP, CMPX, TROPI, BNP, CDP, PT #### [facility] [address] [place], [facility] [employer]: Sami Dominguez MD WBC (Bld) [#/Vol] 7.5 10*3/uL Normal 3.5-11.3 [facility] Comment on above: Performed By: #### D CITLALY, LIP, CMPX, TROPI, BNP, CDP, PT #### [facility] [address] [place], [place] [id number] [employer]: Sami Dominguez MD Auto Diff Performed NOT REPORTED Normal [facility] Comment on above: Performed By: #### D CITLALY, LIP, CMPX, TROPI, BNP, CDP, PT #### [facility] [address] [place] [id number] [employer]: Sami Dominguez MD Platelets (Bld) [#/Vol] NOT REPORTED Normal [facility] Comment on above: Performed By: #### D CITLALY, LIP, CMPX, TROPI, BNP, CDP, PT #### [facility] [address] [place], [id number] [employer]: Sami Dominguez MD RBC morphology finding Nom (Bld) NOT REPORTED Normal [facility] Comment on above: Performed By: #### D CITLALY, LIP, CMPX, TROPI, BNP, CDP, PT #### [facility] [address] [place], [id number] [employer]: Sami Dominguez MD WBC Morphology NOT REPORTED Normal [facility] Comment on above: Performed By: #### D CITLALY, LIP, CMPX, TROPI, BNP, CDP, PT #### [address] [place], [facility] [employer]: Sami Dominguez MD [facility] CTA CHEST ABDOMEN PELVIS W CONTRAST [...] Yunier Yang MD 08/02/19 Final result Normal [facility] Moshe, Mhpn Incoming Radiant Results From [employer] - 08/02/2019 1:21 PM EDT EXAMINATION: CTA [...] recommended. Reference: J Am Danika Radiol 2013;10:675-681 [place] EXAMINATION: CTA OF THE CHEST, ABDOMEN [...] and caliber without aneurysmal dilatation or dissection. [place] No evidence for aneurysmal dilatation or dissection of the aorta or its branches. Findings most compatible with polycystic kidney disease. Subtle inflammation adjacent to the descending colon is suggestive of subtle colitis. No perforation or abscess formation. No free intraperitoneal air or fluid. 4.1 cm benign appearing ovarian cyst No follow-up imaging is recommended. Reference: J Am Danika Radiol 2013;10:675-681 [place] Comp Metabolic Pr/rfx MGon 1 (cont.) Normal [facility] Comment on above: Result Comment: Aver age GFR for 40-49 years old: 99 mL/min/1.73sq m Chronic Kidney Disease: <60 mL/min/1.73sq m Kidney failure: <15 mL/min/1.73sq m eGFR calculated using average adult body mass. Additional eGFR calculator available at: http://www.[employer]iCurrent/multiple_crcl_2012.htm Performed By: #### D CITLALY, LIP, CMPX, TROPI, BNP, CDP, PT #### [facility] [address] [place], [place] [id number] [employer]: Sami Dominguez MD Albumin [Mass/Vol] 4.4 g/dL Normal 3.5-5.2 [facility] Comment on above: Performed By: #### D CITLALY, LIP, CMPX, TROPI, BNP, CDP, PT #### [facility] [address] [place], [id number] [employer]: Sami Dominguez MD Albumin/Globulin [Mass ratio] 1.0 {ratio} Normal 1.0-2.5 [facility] Comment on above: Performed By: #### D CITLALY, LIP, CMPX, TROPI, BNP, CDP, PT #### [facility] [address] [place], [id number] [employer]: Sami Dominguez MD Alkaline Phos 98 U/L Normal 35-104 [facility] Comment on above: Performed By: #### D CITLALY, LIP, CMPX, TROPI, BNP, CDP, PT #### [facility] [address] [place], [place] [id number] [employer]: Sami Dominguez MD ALT [Catalytic activity/Vol] 16 U/L Normal 5-33 [facility] Comment on above: Performed By: #### D CITLALY, LIP, CMPX, TROPI, BNP, CDP, PT #### [facility] [address] [place], [id number] [employer]: Sami Dominguez MD Anion gap [Moles/Vol] 18 mmol/L High 9-17 [facility] Comment on above: Performed By: #### D CITLALY, LIP, CMPX, TROPI, BNP, CDP, PT #### [facility] [address] [place] [address] [employer]: Sami Dominguez MD AST [Catalytic activity/Vol] 18 U/L Normal <32 [facility] Comment on above: Performed By: #### D CITLALY, LIP, CMPX, TROPI, BNP, CDP, PT #### [facility] [address] [place], [place] [id number] [employer]: Sami Dominguez MD Bilirubin Ql (U) 0.31 mg/dL Normal 0.3-1.2 [facility] Comment on above: Performed By: #### D CITLALY, LIP, CMPX, TROPI, BNP, CDP, PT #### [facility] [address] [place], [place] [id number] [employer]: Sami Dominguez MD BUN/CRE Ratio 13 Normal 9-20 [facility] Comment on above: Performed By: #### D CITLALY, LIP, CMPX, TROPI, BNP, CDP, PT #### [facility] [address] [place], [place] [id number] [employer]: Sami Dominguez MD Calcium [Mass/Vol] 9.7 mg/dL Normal 8.6-10.4 [facility] Comment on above: Performed By: #### D CITLALY, LIP, CMPX, TROPI, BNP, CDP, PT #### [facility] [address] [place], [place] [id number] [employer]: Sami Dominguez MD Chloride [Moles/Vol] 95 mmol/L Low 98-107 [facility] Comment on above: Performed By: #### D CITLALY, LIP, CMPX, TROPI, BNP, CDP, PT #### [facility] [address] [place], [place] [id number] [employer]: Sami Dominguez MD CO2 [Moles/Vol] 18 mmol/L Low 20-31 [facility] Comment on above: Performed By: #### D CITLALY, LIP, CMPX, TROPI, BNP, CDP, PT #### [facility] [address] [place] [address] [employer]: Sami Dominguez MD Creatinine [Mass/Vol] 3.07 mg/dL High 0.50-0.90 [facility] Comment on above: Performed By: #### D CITLALY, LIP, CMPX, TROPI, BNP, CDP, PT #### [facility] [address] [place] [address] [employer]: Sami Dominguez MD GFR, Amer 20 mL/min Low >60 [facility] Comment on above: Performed By: #### D CITLALY, LIP, CMPX, TROPI, BNP, CDP, PT #### [facility] [address] [place], [place] [id number] [employer]: Sami Dominguez MD GFR,non Amer 17 mL/min Low >60 [facility] Comment on above: Performed By: #### D CITLALY, LIP, CMPX, TROPI, BNP, CDP, PT #### [address] [place] [address] [employer]: Sami Dominguez MD Glucose [Mass/Vol] 89 mg/dL Normal 70-99 [facility] Comment on above: Performed By: #### D CITLALY, LIP, CMPX, TROPI, BNP, CDP, PT #### [address] [place] [address] [employer]: aSmi Dominguez MD Potassium [Moles/Vol] 3.9 mmol/L Normal 3.7-5.3 [facility] Comment on above: Performed By: #### D CITLALY, LIP, CMPX, TROPI, BNP, CDP, PT #### [address] [place], [place] [id number] [employer]: Sami Dominguez MD Protein [Mass/Vol] 8.8 g/dL High 6.4-8.3 [facility] Comment on above: Performed By: #### D CITLALY, LIP, CMPX, TROPI, BNP, CDP, PT #### [facility] [address] [place] [address] [employer]: Sami Dominguez MD Sodium [Moles/Vol] 131 mmol/L Low 135-144 [facility] Comment on above: Performed By: #### D CITLALY, LIP, CMPX, TROPI, BNP, CDP, PT #### [facility] [address] [place] [address] [employer]: Sami Dominguez MD Staging: Normal [facility] Comment on above: Result Comment: Stag e 1: Some kidney damage normal GFR Stage 2: Mild kidney damage GFR 60-89 Stage 3: Moderate kidney damage GFR 30-59 Stage 4: Severe kidney damage GFR 15-29 Stage 5: Severe kidney damage GFR <15 ESRD - chronic treatment by dialysis or transplant Performed By: #### D CITLALY, LIP, CMPX, TROPI, BNP, CDP, PT #### [facility] [address] [place] [address] [employer]: Sami Dominguez MD Urea nitrogen [Mass/Vol] 39 mg/dL High 6-20 [facility] Comment on above: Performed By: #### D CITLALY, LIP, CMPX, TROPI, BNP, CDP, PT #### [facility] [address] [place] [address] [employer]: Sami Dominguez MD Comprehensive Metabolic Pane l w/ Reflex to MGon 08-02-2019 Albumin [Mass/Vol] 4.4 g/dL 3.5 - 5.2 g/dL [place] Albumin/Globulin [Mass ratio] 1.0 {ratio} [place] ALP [Catalytic activity/Vol] 98 U/L 35 - 104 U/L [place] ALT [Catalytic activity/Vol] 16 U/L 5 - 33 U/L [place] Anion gap [Moles/Vol] 18 mmol/L High 9 - 17 mmol/L [place] AST [Catalytic activity/Vol] 18 U/L <32 [place] Bilirubin Ql (U) 0.31 mg/dL 0.3 - 1.2 mg/dL [place] Bun/Cre Ratio 13 [place] Calcium [Mass/Vol] 9.7 mg/dL 8.6 - 10. 4 mg/dL [place] Chloride [Moles/Vol] 95 mmol/L Low 98 - 10 7 mmol/L [place] CO2 [Moles/Vol] 18 mmol/L Low 20 - 31 mmol/L [place] Creatinine [Mass/Vol] 3.07 mg/dL High 0.5 - 0.9 mg/dL [place] GFR 20 mL/min Low >60 [place] GFR Non- 17 mL/min Low >60 [place] Glucose [Mass/Vol] 89 mg/dL 70 - 99 mg/dL [place] Interpretation and review of laboratory results Abnormal [place] Potassium [Moles/Vol] 3.9 mmol/L 3.7 - 5.3 mmol/L [place] Protein [Mass/Vol] 8.8 g/dL High 6.4 - 8.3 g/dL [place] Sodium [Moles/Vol] 131 mmol/L Low 135 - 144 mmol/L [place] Urea nitrogen [Mass/Vol] 39 mg/dL High 6 - 20 mg/dL [place] D-Dimer Teston 08-02-2019 D-Dimer Test 1.15 mg/L FEU High 0.19-0.50 [facility] Comment on above: Result Comment: Elevated [...] LIP, CMPX, TROPI, BNP, CDP, PT #### [facility] [address] [place] [address] [employer]: Sami Dominguez MD D-Dimer, Quantitativeon 10-2 2019 D-Dimer, Quant 1.15 High [place] Comment on above: Elevated levels of [...] Interpretation and review of laboratory results Abnormal [place] Lactate, Sepsison 08-02-2019 Lactic Acid, Sepsis 3.6 mmol/L High 0.5-1.9 [facility] Comment on above: Performed By: #### L ACDS #### [facility] [address] [place] [address] [place] [address] [employer]: Sami Dominguez MD Lactic Acid,Sep Wbld NOT REPORTED Normal 0.5-1.9 [facility] Comment on above: Performed By: #### L ACDS #### [facility] [address] [place] [address] [place] [address] [employer]: Sami Dominguez MD Interpretation and review of laboratory results Abnormal [place] Lactic Acid, Sepsis 3.6 mmol/L High 0.5 - 1. 9 mmol/L [place] Lactic Acid, Sepsis, Whole Blood NOT REPORTED 0.5 - 1.9 mmol/L [place] Lactic Acidon 08-02-2019 Lactate [Moles/Vol] 1.0 mmol/L Normal 0.5-2.2 [facility] Comment on above: Performed By: #### D CITLALY, LIP, CMPX, TROPI, BNP, CDP, PT #### [facility] [address] [place] [address] [employer]: Sami Dominguez MD Lactate [Moles/Vol] NOT REPORTED Normal 0.7-2.1 [facility] Comment on above: Performed By: #### D CITLALY, LIP, CMPX, TROPI, BNP, CDP, PT #### [facility] [address] [place] [address] [employer]: Sami Dominguez MD Lactic Acid, Plasmaon 2018 Lactate [Moles/Vol] 1 mmol/L 0.5 - 2. 2 mmol/L [place] Lactic Acid, Whole Blood NOT REPORTED 0.7 - 2.1 mmol/L [place] Lipaseon 08-02-2019 Lipase [Catalytic activity/Vol] 38 U/L Normal 13-60 [facility] Comment on above: Performed By: #### D CITLALY, LIP, CMPX, TROPI, BNP, CDP, PT #### [facility] [address] [place] [address] [employer]: Sami Dominguez MD Lipase [Catalytic activity/Vol] 38 U/L 13 - 60 U/L [place] Metabolic Panelon 08-02-2019 GFR/1.73 sq M predicted among non-blacks MDRD (S/P/Bld) [Vol rate/Area] [place] Comment on above: Stage 1: Some [...] body mass. Additional eGFR calculator available at: http://www.[employer]com/multiple_crcl_2012.htm Microscopic Urinalysison Amorphous, UA NOT REPORTED None [place] Bacteria, UA 1+ Abnormal None [place] Casts UA NOT REPORTED /LPF [place] Crystals UA NOT REPORTED None /HPF [place] Epithelial Cells UA 2 TO 5 [place] Interpretation and review of laboratory results Abnormal [place] Mucus, UA NOT REPORTED None [place] Other Observations UA NOT REPORTED NOT REQ. M [place] RBC (U) [#/Vol] None [place] Renal Epithelial, Urine NOT REPORTED 0 /HPF [place] Trichomonas, UA NOT REPORTED None [place] WBC, UA 50 TO 100 [place] Yeast, UA NOT REPORTED None [place] PTon 08-02-2019 INR Coag (PPP) [Relative time] 1.0 {INR} Normal 0.9-1.2 [facility] Comment on above: Performed By: #### D CITLALY, LIP, CMPX, TROPI, BNP, CDP, PT #### [facility] [address] [place] [address] [employer]: Sami Dominguez MD PT Coag (PPP) [Time] 10.0 s Normal 9.7-12.2 [facility] Comment on above: Performed By: #### D CITLALY, LIP, CMPX, TROPI, BNP, CDP, PT #### [facility] [address] [place] [address] [employer]: Sami Dominguez MD Protime-INRon 08-02-2019 INR Coag (PPP) [Relative time] 1.0 {INR} [place] PT Coag (PPP) [Time] 10 s [place] Troponinon 08-02-2019 Troponin I.cardiac [Mass/Vol] ng/mL Normal <0.03 [facility] Comment on above: Result Comment: Trop onin T results cannot be compared to Troponin-I results. Performed By: #### D CITLALY, LIP, CMPX, TROPI, BNP, CDP, PT #### [facility] [address] [place] [address] [employer]: Sami Dominguez MD Troponin I.cardiac [Mass/Vol] Normal [facility] Comment on above: Result Comment: Refe [...] LIP, CMPX, TROPI, BNP, CDP, PT #### [facility] [address] [place] [address] [employer]: Sami Dominguez MD Troponin I.cardiac [Mass/Vol] NOT REPORTED Normal 0-14 [facility] Comment on above: Performed By: #### D CITLALY, LIP, CMPX, TROPI, BNP, CDP, PT #### [facility] [address] [place] [address] [employer]: Sami Dominguez MD Troponin I.cardiac [Mass/Vol] [place] Comment on above: Reference Range: <0.03 [...] diagnosis. Troponin T.cardiac [Mass/Vol] ug/L <0.03 ng/mL [place] Comment on above: Troponin T results c annot be compared to Troponin-I results. Troponin, High Sensitivity NOT REPORTED 0 - 14 ng/L [place] Troponin I.cardiac [Mass/Vol] ng/mL Normal <0.03 [facility] Comment on above: Result Comment: Trop onin T results cannot be compared to Troponin-I results. Performed By: #### D CITLALY, LIP, CMPX, TROPI, BNP, CDP, PT #### [facility] [address] [place] [address] [employer]: Sami Dominguez MD Troponin I.cardiac [Mass/Vol] Normal [facility] Comment on above: Result Comment: Refe [...] LIP, CMPX, TROPI, BNP, CDP, PT #### [facility] [address] [place] [address] [employer]: Sami Dominguez MD Troponin I.cardiac [Mass/Vol] NOT REPORTED Normal 0-14 [facility] Comment on above: Performed By: #### D CITLALY, LIP, CMPX, TROPI, BNP, CDP, PT #### [facility] [address] [place] [address] [employer]: Sami Dominguez MD Troponin I.cardiac [Mass/Vol] [place] Comment on above: Reference Range: <0.03 [...] diagnosis. Troponin T.cardiac [Mass/Vol] ug/L <0.03 ng/mL [place] Comment on above: Troponin T results c annot be compared to Troponin-I results. Troponin, High Sensitivity NOT REPORTED 0 - 14 ng/L [place] UA w/Reflex Cultureon 2018 Acetoacetic Acid,Ur Negative Normal NEG [facility] Comment on above: Performed By: #### D CITLALY, LIP, CMPX, TROPI, BNP, CDP, PT #### [facility] [address] [place] [address] [employer]: Sami Dominguez MD Bilirubin, SemiQt,Ur Negative Normal [facility] Comment on above: Performed By: #### D CITLALY, LIP, CMPX, TROPI, BNP, CDP, PT #### [facility] [address] [place], [place] [id number] [employer]: Sami Dominguez MD Color (U) YELLOW Normal YEL [facility] Comment on above: Performed By: #### D CITLALY, LIP, CMPX, TROPI, BNP, CDP, PT #### [facility] [facility] [address] [place], [place] [id number] [employer]: Sami Dominguez MD Glucose Ql (U) Negative Normal [facility] Comment on above: Performed By: #### D CITLALY, LIP, CMPX, TROPI, BNP, CDP, PT #### [facility] [address] [place] [address] Dr. [place], [place] [id number] [employer]: Sami Dominguez MD Hemoglobin, Ur 1+ Abnormal [facility] Comment on above: Performed By: #### D CITLALY, LIP, CMPX, TROPI, BNP, CDP, PT #### [address] [place] [address] [employer]: Sami Dominguez MD Leukocyte esterase Test strip Ql (U) MODERATE Abnormal [facility] Comment on above: Performed By: #### D CITLALY, LIP, CMPX, TROPI, BNP, CDP, PT #### [facility] [address] [place], [place] [id number] [employer]: Sami Dominguez MD Nitrite,Ur Negative Normal [facility] Comment on above: Performed By: #### D CITLALY, LIP, CMPX, TROPI, BNP, CDP, PT #### [facility] [address] [place], [place] [id number] [employer]: Sami Dominguez MD pH (U) 6.0 [pH] Normal 5.0-9.0 [facility] Comment on above: Performed By: #### D CITALLY, LIP, CMPX, TROPI, BNP, CDP, PT #### [facility] [address] [place] [address] [employer]: Sami Dominguez MD Protein Ql (U) TRACE Abnormal NEG [facility] Comment on above: Performed By: #### D CITLALY, LIP, CMPX, TROPI, BNP, CDP, PT #### [facility] [address] [place] [address] [employer]: Sami Dominguez MD Specific gravity (U) [Rel density] 1.010 Normal 1.010-1.020 [facility] Comment on above: Performed By: #### D CITLALY, LIP, CMPX, TROPI, BNP, CDP, PT #### [facility] [address] [place] [address] Dr. [place], [place] [id number] [employer]: Sami Dominguez MD Turbidity CLEAR Normal CLEAR [facility] Comment on above: Performed By: #### D CTILALY, LIP, CMPX, TROPI, BNP, CDP, PT #### [address] [place], [place] [id number] [employer]: aSmi Dominguez MD Urobilinogen,Ur Normal Normal NORM [facility] Comment on above: Performed By: #### D CITLALY, LIP, CMPX, TROPI, BNP, CDP, PT #### [facility] [address] [place], [place] [id number] [employer]: Sami Dominguez MD Comment NOT REPORTED Normal [facility] Comment on above: Performed By: #### D CITLALY, LIP, CMPX, TROPI, BNP, CDP, PT #### [facility] [address] [place] [address] [employer]: Sami Dominguez MD Urinalysis Reflex to Culture on 08-02-2019 Bilirubin Urine Negative NEGATIVE [facility] [place] [place] Color, UA YELLOW YELLOW [place] Glucose, Ur Negative NEGATIVE [place] Interpretation and review of laboratory results Abnormal [place] Ketones Ql (U) Negative NEGATIVE [place] Leukocyte esterase Test strip Ql (U) MODERATE Abnormal NEGATIVE [place] Nitrite, Urine Negative NEGATIVE [place] pH, UA 6.0 [place] Protein (U) [Mass/Vol] TRACE Abnormal NEGATIVE [place], [place] Specific [place], UA 1.010 [place], [place] Turbidity UA CLEAR CLEAR [place] Urinalysis Comments NOT REPORTED [place] Urine Hgb 1+ Abnormal NEGATIVE [place] Urobilinogen, Urine Normal Normal [place] Urinalysis,Microon 9 ----- Normal [facility] Comment on above: Performed By: #### D CITLALY, LIP, CMPX, TROPI, BNP, CDP, PT #### [facility] [address] [place] [address] [place] [address] [employer]: Sami Dominguez MD Bacteria LM.HPF (Urine sed) [#/Area] 1+ Abnormal NONE [facility] Comment on above: Performed By: #### D CITLALY, LIP, CMPX, TROPI, BNP, CDP, PT #### [address] [place] [address] [employer]: Sami Dominguez MD Epithelial cells LM.HPF (Urine sed) [#/Area] 2 TO 5 Normal 0-25 [facility] Comment on above: Performed By: #### D CITLALY, LIP, CMPX, TROPI, BNP, CDP, PT #### [address] [place] [address] [employer]: Sami Dominguez MD RBC (U) [#/Vol] None Normal 0-2 [facility] Comment on above: Performed By: #### D CITLALY, LIP, CMPX, TROPI, BNP, CDP, PT #### [facility] [address] [place], [id number] [employer]: Sami Dominguez MD WBC (U) [#/Vol] 50 TO 100 Normal 0-5 [facility] Comment on above: Performed By: #### D CITLALY, LIP, CMPX, TROPI, BNP, CDP, PT #### [facility] [address] [place], [place] [address] [employer]: Sami Dominguez MD Amorphous sediment LM Ql (Urine sed) NOT REPORTED Normal [facility] Comment on above: Performed By: #### D CITLALY, LIP, CMPX, TROPI, BNP, CDP, PT #### [facility] [address] [place] [address] [employer]: Sami Dominguez MD Casts LM.LPF (Urine sed) [#/Area] NOT REPORTED Normal [facility] Comment on above: Performed By: #### D CITLALY, LIP, CMPX, TROPI, BNP, CDP, PT #### [address] [place] [id number] [employer]: Sami Dominguez MD Crystals LM Nom (Urine sed) NOT REPORTED Normal [facility] Comment on above: Performed By: #### D CITLALY, LIP, CMPX, TROPI, BNP, CDP, PT #### [address] [place], [place] [address] [employer]: Sami Dominguez MD Epithelial, Renal NOT REPORTED Normal 0 [facility] Comment on above: Performed By: #### D CITLALY, LIP, CMPX, TROPI, BNP, CDP, PT #### [facility] [address] [place] [id number] [employer]: Sami Dominguez MD Mucus Strands NOT REPORTED Normal [facility] Comment on above: Performed By: #### D CITLALY, LIP, CMPX, TROPI, BNP, CDP, PT #### [facility] [address] [place], [place] [id number] [employer]: Sami Dominguez MD Other Observations NOT REPORTED Normal [facility] Comment on above: Performed By: #### D CITLALY, LIP, CMPX, TROPI, BNP, CDP, PT #### [facility] [address] [place] [id number] [employer]: Sami Dominguez MD Trichomonas NOT REPORTED Normal NONE [facility] Comment on above: Performed By: #### D CITLALY, LIP, CMPX, TROPI, BNP, CDP, PT #### [facility] [address] [place] [id number] [employer]: Sami Dominguez MD Yeast LM Ql (Urine sed) NOT REPORTED Normal NONE [facility] Comment on above: Performed By: #### D CITLALY, LIP, CMPX, TROPI, BNP, CDP, PT #### [facility] [address] [place] [id number] [employer]: Sami Dominguez MD XR CHEST PORTABLEon 08-02-20 [...] Cullen Ngo MD 08/02/19 Final result Normal [facility] EXAMINATION: ONE XRA Y VIEW OF THE CHEST 08/02/2019 12:59 pm COMPARISON: None. HISTORY: ORDERING SYSTEM PROVIDED HISTORY: CP TECHNOLOGIST PROVIDED HISTORY: CP FINDINGS: Heart size and pulmonary vessels are within normal limits. Lungs are clear. No focal infiltrates or significant pleural effusions are seen. There is no acute osseous abnormality. Monitor leads overlie the chest. [place] No acute cardiopulmo nary process. [place] Moshe, [facility] Incoming Radiant Results From [employer] - 08/02/2019 1:10 PM EDT EXAMINATION: ONE [...] the chest. IMPRESSION: No acute cardiopulmonary process. [place] Vital Signs Date Time Vital Sign Value Performing Clinician Facility 10-01-2024 08:19-0500 Body height 154.9 cm Ming Espinoza DO Work Phone: [facility] 10-01-2024 08:19-0500 Body mass index (BMI) [Ratio] 34.2 kg/m2 Ming Espinoza DO Work Phone: [facility] 10-01-2024 08:19-0500 Body weight 82.1 kg Ming Espinoza DO Work Phone: [facility] 10-01-2024 08:19-0500 Diastolic blood pressure 60 mm[Hg] Ming Espinoza DO Work Phone: [facility] 10-01-2024 08:19-0500 Heart rate 88 /min Ming Espinoza DO Work Phone: [facility] 10-01-2024 08:19-0500 SaO2% (BldA) [Mass fraction] 98 % Ming Espinoza DO Work Phone: [facility] 10-01-2024 08:19-0500 Systolic blood pressure 124 mm[Hg] Ming Espinoza DO Work Phone: [facility] 07-27-2024 08:34-0400 Body temperature 97.81 [degF] Lucero Hudson [facility] Work Phone: [facility] 07-27-2024 08:34-0400 Diastolic blood pressure 74 mm[Hg] Lucero Hudson [facility] Work Phone: [facility] 07-27-2024 08:34-0400 Heart rate 83 /min Lucero Hudson [facility] Work Phone: [facility] 07-27-2024 08:34-0400 SaO2% (BldA) [Mass fraction] 98 % Lucero Hudson [facility] Work Phone: [facility] 07-27-2024 08:34-0400 Systolic blood pressure 118 mm[Hg] Lucero Hudson [facility] Work Phone: [facility] 03-15-2024 17:34-0400 Body height 157.48 cm INCIDENT RESPONSE COORDINATOR Andreia Jerry Work Phone: [facility] 03-15-2024 17:34-0400 Body mass index (BMI) [Ratio] 31.8 kg/m2 INCIDENT RESPONSE COORDINATOR Andreia Jerry Work Phone: [facility] 03-15-2024 17:34-0400 Body temperature 100.3 [degF] INCIDENT RESPONSE COORDINATOR Andreia Jerry Work Phone: [facility] 03-15-2024 17:34-0400 Body weight 78.92 kg INCIDENT RESPONSE COORDINATOR Andreia Jerry Work Phone: [facility] 03-15-2024 17:34-0400 Diastolic blood pressure 79 mm[Hg] INCIDENT RESPONSE COORDINATOR Andreia Jerry Work Phone: [facility] 03-15-2024 17:34-0400 Heart rate 88 /min INCIDENT RESPONSE COORDINATOR Andreia Jerry Work Phone: [facility] 03-15-2024 17:34-0400 Respiratory rate 18 /min INCIDENT RESPONSE COORDINATOR Andreia Jerry Work Phone: [facility] 03-15-2024 17:34-0400 SaO2% (BldA) [Mass fraction] 96 % INCIDENT RESPONSE COORDINATOR Andreia Jerry Work Phone: [facility] 03-15-2024 17:34-0400 Systolic blood pressure 121 mm[Hg] INCIDENT RESPONSE COORDINATOR Andreia Jerry Work Phone: [facility] 07-30-2022 17:40-0400 Body height 157.48 cm Yaneth Toni Other [employer] Other 07-30-2022 17:40-0400 Body mass index (BMI) [Ratio] 36.69 kg/m2 Yaneth Toni Other [employer] Other 07-30-2022 17:40-0400 Body temperature 97.4 [degF] Yaneth Toni Other [employer] Other 07-30-2022 17:40-0400 Body weight 90.99 kg Yaneth Toni Other [employer] Other 07-30-2022 17:40-0400 Diastolic blood pressure 85 mm[Hg] Yaneth Toni Other [employer] Other 07-30-2022 17:40-0400 Respiratory rate 18 /min Yaneth Toni Other [employer] Other 07-30-2022 17:40-0400 SaO2% (BldA) [Mass fraction] 99 % Yaneth Toni Other [employer] Other 07-30-2022 17:40-0400 Systolic blood pressure 124 mm[Hg] Yaneth Toni Other [employer] Other 07-03-2022 09:45-0400 Body height 157.48 cm Estefania Vo Other [employer] Other 07-03-2022 09:45-0400 Body mass index (BMI) [Ratio] 36.76 kg/m2 Estefania Vo Other [employer] Other 07-03-2022 09:45-0400 Body temperature 97 [degF] Estefania Vo Other [employer] Other 07-03-2022 09:45-0400 Body weight 91.17 kg Estefania Vo Other [employer] Other 07-03-2022 09:45-0400 Diastolic blood pressure 60 mm[Hg] Estefania Vo Other [employer] Other 07-03-2022 09:45-0400 SaO2% (BldA) [Mass fraction] 99 % Estefania Vo Other [employer] Other 07-03-2022 09:45-0400 Systolic blood pressure 110 mm[Hg] Estefania Vo Other [employer] Other 06-20-2022 16:10-0400 Diastolic blood pressure 68 mm[Hg] DO Ming Espinoza Work Phone: [facility] 06-20-2022 16:10-0400 Heart rate 69 /min DO Ming Espinoza Work Phone: [facility] 06-20-2022 16:10-0400 Respiratory rate 18 /min DO Ming Espinoza Work Phone: [facility] 06-20-2022 16:10-0400 SaO2% (BldA) [Mass fraction] 100 % DO Ming Alexis Work Phone: [facility] 06-20-2022 16:10-0400 Systolic blood pressure 126 mm[Hg] DO Ming Ibarraman Work Phone: [facility] 06-20-2022 13:15-0400 Body height 157.48 cm DO Ming Espinoza Work Phone: [facility] 06-20-2022 13:15-0400 Body temperature 98.6 [degF] DO Ming Espinoza Work Phone: [facility] 06-20-2022 13:15-0400 Body weight 91.5 kg DO Ming Espinoza Work Phone: [facility] 06-18-2022 10:45-0400 Diastolic blood pressure 79 mm[Hg] DO Ming Espinoza Work Phone: [facility] 06-18-2022 10:45-0400 Heart rate 66 /min DO Ming Espinoza Work Phone: [facility] 06-18-2022 10:45-0400 Respiratory rate 16 /min DO Ming Espinoza Work Phone: [facility] 06-18-2022 10:45-0400 SaO2% (BldA) [Mass fraction] 100 % DO Ming Espinoza Work Phone: [facility] 06-18-2022 10:45-0400 Systolic blood pressure 130 mm[Hg] DO Ming Espinoza Work Phone: [facility] 06-18-2022 08:08-0400 Body mass index (BMI) [Ratio] 37.8 kg/m2 DO Ming Espinoza Work Phone: [facility] 06-18-2022 07:41-0400 Body height 157.48 cm DO Ming Espinoza Work Phone: [facility] 06-18-2022 07:41-0400 Body weight 93.89 kg DO Ming Espinoza Work Phone: [facility] 06-18-2022 06:26-0400 Body temperature 98.5 [degF] DO Ming Espinoza Work Phone: [facility] 05-30-2022 11:00-0400 Body height 157.48 cm Jesus Parham Other [employer] Other 05-30-2022 11:00-0400 Body mass index (BMI) [Ratio] 36.76 kg/m2 Jesus Parham Other [employer] Other 05-30-2022 11:00-0400 Body temperature 97.6 [degF] Jesus Parham Other [employer] Other 05-30-2022 11:00-0400 Body weight 91.17 kg Jesus Parham Other [employer] Other 05-30-2022 11:00-0400 Diastolic blood pressure 76 mm[Hg] Jesus Parham Other [employer] Other 05-30-2022 11:00-0400 SaO2% (BldA) [Mass fraction] 98 % Jesus Parham Other [employer] Other 05-30-2022 11:00-0400 Systolic blood pressure 128 mm[Hg] Jesus Parham Other [employer] Other 05-02-2022 14:40-0400 Body height 157.48 cm Yaneth Toni Other [employer] Other 05-02-2022 14:40-0400 Body mass index (BMI) [Ratio] 36.76 kg/m2 Yaneth Toni Other [employer] Other 05-02-2022 14:40-0400 Body temperature 97.7 [degF] Yaneth Toni Other [employer] Other 05-02-2022 14:40-0400 Body weight 91.17 kg Yaneth Toni Other [employer] Other 05-02-2022 14:40-0400 Diastolic blood pressure 88 mm[Hg] Yaneth Toni Other [employer] Other 05-02-2022 14:40-0400 Respiratory rate 18 /min Yaneth Toni Other [employer] Other 05-02-2022 14:40-0400 SaO2% (BldA) [Mass fraction] 98 % Yaneth Toni Other [employer] Other 05-02-2022 14:40-0400 Systolic blood pressure 121 mm[Hg] Yaneth Toni Other [employer] Other 04-30-2022 10:10-0400 Body height 157.48 cm Dipika Juniorault Other [employer] Other 04-30-2022 10:10-0400 Body mass index (BMI) [Ratio] 37.86 kg/m2 Dipika Shantell Other [employer] Other 04-30-2022 10:10-0400 Body temperature 97.4 [degF] Dipika Shantell Other [employer] Other 04-30-2022 10:10-0400 Body weight 93.9 kg Dipika Shantell Other [employer] Other 04-30-2022 10:10-0400 Diastolic blood pressure 80 mm[Hg] Dipika Stinson Other [employer] Other 04-30-2022 10:10-0400 Respiratory rate 16 /min Dipika Stinson Other [employer] Other 04-30-2022 10:10-0400 SaO2% (BldA) [Mass fraction] 100 % Dipika Stinson Other [employer] Other 04-30-2022 10:10-0400 Systolic blood pressure 117 mm[Hg] Dipika Stinson Other [employer] Other 04-01-2022 09:13-0400 Diastolic blood pressure 62 mm[Hg] DO Ming Espinoza Work Phone: [facility] 04-01-2022 09:13-0400 Heart rate 83 /min DO Ming Espinoza Work Phone: [facility] 04-01-2022 09:13-0400 Respiratory rate 16 /min DO Ming Espinoza Work Phone: [facility] 04-01-2022 09:13-0400 SaO2% (BldA) [Mass fraction] 97 % DO Ming Espinoza Work Phone: [facility] 04-01-2022 09:13-0400 Systolic blood pressure 101 mm[Hg] DO Ming Espinoza Work Phone: [facility] 04-01-2022 07:23-0400 Body height 157.48 cm DO Ming Espinoza Work Phone: [facility] 04-01-2022 07:23-0400 Body mass index (BMI) [Ratio] 37.8 kg/m2 DO Ming Ibarraman Work Phone: [facility] 04-01-2022 07:23-0400 Body temperature 97.8 [degF] DO Ming Espinoza Work Phone: [facility] 04-01-2022 07:23-0400 Body weight 93.89 kg DO Ming Espinoza Work Phone: [facility] 12-06-2021 16:20-0500 Body height 157.48 cm Yaneth Toni Other [employer] Other 12-06-2021 16:20-0500 Body mass index (BMI) [Ratio] 37.86 kg/m2 Yaneth Toni Other [employer] Other 12-06-2021 16:20-0500 Body weight 93.9 kg Yaneth Toni Other [employer] Other 12-06-2021 16:20-0500 Diastolic blood pressure 89 mm[Hg] Yaneth Toni Other [employer] Other 12-06-2021 16:20-0500 Respiratory rate 18 /min Yaneth Toni Other [employer] Other 12-06-2021 16:20-0500 SaO2% (BldA) [Mass fraction] 97 % Yaneth Toni Other [employer] Other 12-06-2021 16:20-0500 Systolic blood pressure 134 mm[Hg] Yaneth Toni Other [employer] Other 08-02-2019 16:35-0400 Body Temperature 99.3 [degF] [facility]idal [facility] 08-02-2019 16:27-0400 Pulse (Heart Rate) 110 /min [facility], [place] 08-02-2019 16:27-0400 Pulse Oximetry 98 % Vidal Madrigal [facility] , [place] 08-02-2019 16:27-0400 Respiratory Rate 14 /min [facility], [place] 08-02-2019 16:16-0400 BP Diastolic 56 mm[Hg] [facility] [place] 08-02-2019 16:16-0400 BP Systolic 97 mm[Hg] [facility] [place] 08-02-2019 14:59-0400 BMI (Body Mass Index) 37.79 kg/m2 [facility] [place] 08-02-2019 14:59-0400 Body weight 90.72 kg [facility] [place] 08-02-2019 14:59-0400 Height 154.9 cm [place] Encounters Encounter Date Encounter Type Care Provider Facility Start: 10-01-2024 End: 10-01-2024 Office outpatient visit 40 minutes Ming Espinoza DO Work Phone: [facility] Comment on above: Benign essential hyp ertension ([facility]/HCC) (Primary Dx); Renal transplant recipient ([facility]); Immunosuppressive management encounter following kidney transplant ([facility]); Anemia of renal disease; Iron deficiency anemia, unspecified iron deficiency anemia type; Type 2 diabetes mellitus with stage 3a chronic kidney disease, without long-term current use of insulin (HCC) ([facility]); Dyslipidemia ([facility]); Fibromyalgia; Need for immunization against influenza Start: 09-14-2024 End: 09-14-2024 Office outpatient visit 10 minutes Blake Hinojosa DO Work Phone: [facility] Comment on above: Cyst of left ovary Start: 09-14-2024 End: 09-14-2024 ambulatory BLAKE HINOJOSA Not Available Start: 08-31-2024 End: 08-31-2024 Clinisync Result Encounter Generic External Data Provider [facility] External Department Unsolicited Start: 08-31-2024 End: 08-31-2024 Clinisync Result Encounter Generic External Data Provider [facility] External Department Unsolicited Start: 08-25-2024 End: 08-25-2024 Patient encounter procedure Ming Alexis DO Work Phone: [facility] Work Phone: Start: 08-25-2024 End: 08-25-2024 ambulatory Ming Espinoza DO Work Phone: [facility] Work Phone: Start: 08-02-2024 End: 08-03-2024 External Result Encounter Blake Hinojosa DO Work Phone: [facility] External Department Unsolicited Start: 08-02-2024 End: 08-03-2024 External Result Encounter Blake Peng Micaela DO Work Phone: [facility] External Department Unsolicited Start: 08-02-2024 End: 08-02-2024 Office outpatient visit 10 minutes Blake Hinojosa DO Work Phone: [facility] Comment on above: Cyst of left ovary ( Primary Dx); Dyspareunia in female Start: 08-02-2024 End: 08-02-2024 ambulatory BLAKE Ginette HINOJOSA Not Available Start: 08-02-2024 End: 08-02-2024 Patient encounter procedure DO Ming Espinoza Work Phone: [facility] Work Phone: Start: 08-02-2024 End: 08-02-2024 ambulatory DO Ming Espinoza Work Phone: [facility] Work Phone: Start: 07-31-2024 End: 07-31-2024 Clinisync Result Encounter Generic External Data Provider [facility] External Department Unsolicited Start: 07-31-2024 End: 07-31-2024 Clinisync Result Encounter Generic External Data Provider [facility] External Department Unsolicited Start: 07-27-2024 End: 07-27-2024 Office outpatient visit 15 minutes Lucero Hudson [facility] Work Phone: [facility] Comment on above: Acute non-recurrent pansinusitis (Primary Dx); Side effect of medication Start: 07-27-2024 End: 07-27-2024 ambulatory MING ESPINOZA Not Available Start: 07-07-2024 End: 07-07-2024 ambulatory SREE [facility] Start: 07-02-2024 End: 07-02-2024 ambulatory [facility] Start: 06-29-2024 End: 06-29-2024 Clinisync Result Encounter Generic External Data Provider [facility] External Department Unsolicited Start: 06-29-2024 End: 06-29-2024 Clinisync Result Encounter Generic External Data Provider [facility] External Department Unsolicited Start: 06-10-2024 End: 06-12-2024 Clinisync Result Encounter Generic External Data Provider [facility] External Department Unsolicited Start: 06-10-2024 End: 06-12-2024 Clinisync Result Encounter Generic External Data Provider [facility] External Department Unsolicited Start: 06-02-2024 End: 06-02-2024 Clinisync Result Encounter Generic External Data Provider [facility] External Department Unsolicited Start: 06-02-2024 End: 06-02-2024 Clinisync Result Encounter Generic External Data Provider [facility] External Department Unsolicited Start: 05-19-2024 End: 05-19-2024 [facility] Start: 04-27-2024 End: 04-27-2024 ambulatory MUNIRA PHAN [facility] Start: 04-23-2024 ambulatory MUNIRA PHAN [facility] Start: 04-19-2024 End: 04-19-2024 ambulatory BLAKE HINOJOSA Not Available Start: 04-14-2024 End: 04-14-2024 ambulatory MUNIRA PHAN Not Available Start: 03-23-2024 End: 03-23-2024 ambulatory MING ESPINOZA Not Available Start: 03-15-2024 End: 03-15-2024 ambulatory Andreia Edwards [facility] Work Phone: Start: 03-15-2024 End: 03-15-2024 Departed Referred INCIDENT RESPONSE COORDINATOR Anderia Edwards Work Phone: [facility] Work Phone: Start: 03-15-2024 End: 03-15-2024 Patient encounter procedure INCIDENT RESPONSE COORDINATOR Andreia Edwards Work Phone: [facility] Work Phone: Start: 12-23-2023 End: 12-23-2023 [facility] Start: 12-01-2023 End: 12-01-2023 ambulatory MING ESPINOZA Not Available Start: 11-06-2023 End: 11-06-2023 Patient encounter procedure DO Ming Espinoza Work Phone: [facility] [address] Work Phone: Start: 11-06-2023 End: 11-06-2023 ambulatory DO Ming Espinoza Work Phone: [facility] Work Phone: Start: 10-13-2023 End: 10-13-2023 ambulatory MING ESPINOZA Not Available Start: 09-01-2023 End: 09-01-2023 ambulatory MUNIRA [facility] [facility] Start: 08-26-2023 ambulatory MUNIRA TRENTMADHU [facility] Start: 07-30-2022 End: 07-30-2022 ambulatory Yaneth Toni Other [employer] Other Start: 07-30-2022 Office outpatient vi sit 25 minutes Yaneth Toni [facility] Start: 07-29-2022 End: 07-30-2022 ambulatory YANETH TONI Facility:H1 Start: 07-16-2022 End: 07-16-2022 ambulatory DO Ming Espinoza Work Phone: [facility] Work Phone: Start: 07-16-2022 End: 07-16-2022 Patient encounter procedure DO Ming Espinoza Work Phone: [facility] Start: 07-03-2022 End: 07-03-2022 ambulatory Estefania Vo Other [employer] Other Start: 07-03-2022 Follow-up encounter Estefania Vo [facility] Start: 06-20-2022 End: 06-20-2022 ambulatory Jesus Parham Other [employer] Other Start: 06-20-2022 Telephone encounter Jesus adler [facility] Start: 06-20-2022 End: 06-20-2022 Emergency department patient visit DO Ming Espinoza Work Phone: [facility] Start: 06-18-2022 End: 06-18-2022 Admission to same day surgery center DO Ming Espinoza Work Phone: [facility] Start: 06-14-2022 End: 06-14-2022 Patient encounter procedure DO Ming Espinoza Work Phone: [facility] Start: 06-06-2022 End: 06-07-[address] BRINDA HINOJOSA Facility: Start: 06-05-2022 End: 06-05-2022 Patient encounter procedure DO Ming Espinoza Work Phone: [facility] Start: 06-03-2022 End: 06-03-2022 ambulatory Jesus Parham Other [employer] Other Start: 06-03-2022 Encounter for other preprocedural examination Jesus Parham [facility] Start: 06-03-2022 Telephone encounter Jesus adler [facility] Start: 05-30-2022 End: 05-30-2022 ambulatory Jesus Parham Other [employer] Other Start: 05-30-2022 FQ[facility] visit new patient Jesus isabel [facility] Start: 05-30-2022 End: 05-30-2022 Patient encounter procedure DO Ming Espinoza Work Phone: [facility] Start: 05-29-[address] BLAKE Gramajo ity:H1 Start: 05-02-2022 End: 05-02-2022 ambulatory Yaneth Toni Other [employer] Other Start: 05-02-2022 Office outpatient vi sit 25 minutes Yaneth Toni [facility] Start: 04-30-2022 End: 04-30-2022 ambulatory Dipika Stinson Other [employer] Other Start: 04-30-2022 Office outpatient vi sit 15 minutes Dipika Stinson [facility] Start: 04-30-2022 Encounter for preprocedural laboratory examination YANETH TONI [facility] Start: 04-29-2022 Encounter for other preprocedural examination DR DOCTOR ALEJANDRO [facility] Start: 04-27-2022 End: 04-28-2022 Encounter for other preprocedural examination DR MING ESPINOZA Facility:H1 Start: 04-27-2022 End: 04-28-[address] MING ESPINOZA Facility:[facility]1 Start: 04-27-2022 End: 04-28-2022 Encounter for preprocedural laboratory examination YANETH TONI Facility:[facility]1 Start: 04-03-2022 Encounter for other specified special examinations DR DOCTOR ALEJANDRO [facility] Start: 04-01-2022 End: 04-01-2022 Admission to same day surgery center DO Ming Espinoza Work Phone: [facility] Start: 03-29-2022 End: 03-30-[address] DOCTOR ALEJANDRO Facility:H1 Start: 03-29-2022 End: 03-30-2022 Encounter for other specified special examinations DR DOCTOR ALEJANDRO Facility:[facility]1 Start: 03-28-2022 End: 03-28-2022 Patient encounter procedure DO Ming Espinoza Work Phone: [facility] Start: 02-26-2022 End: 02-26-2022 ambulatory Shabbir Jones Other [employer] Other Start: 02-26-2022 Telephone encounter Shabbir Jones [facility] Start: 12-06-2021 End: 12-06-2021 ambulatory Yaneth Toni Other [employer] Other Start: 12-06-2021 Office outpatient vi sit 25 minutes Yaneth Toni [facility] Start: 12-03-2021 End: 12-04-2021 ambulatory YANETH TONI Facility:[facility]1 Start: 09-01-2021 End: 09-02-[address] MING ESPINOZA Facility:[facility]1 Start: 08-02-2019 End: 08-02-2019 Emergency department patient visit [facility] Start: 08-02-2019 End: 08-02-2019 Emergency department patient visit [facility] Work Phone: [facility] ED Comment on above: Acute sepsis (HCC) ( Primary Dx); Acute cystitis without hematuria; Chronic renal failure, stage 4 (severe) (HCC); Polycystic kidney disease Procedures Date Procedure Procedure Detail Performing Clinician Start: 08-31-2024 ALL CBC WITH AUTO DIFF Generic External Data Provider Start: 08-31-2024 ALL LIPID PROFILE (FASTING) Generic External Data Provider Start: 08-31-2024 ALL MAGNESIUM Generic E xternal Data Provider Start: 08-31-2024 ALL PHOSPHOROUS Generic External Data Provider Start: 08-31-2024 ALL URIC ACID Generic E xternal Data Provider Start: 08-31-2024 [facility] CMP (CMP) (FOR [facility] USE) Generic External Data Provider Start: 08-31-2024 METRO BILIRUBIN, DIRECT Generic External Data Provider Start: 08-31-2024 MLR HEMOGLOBIN A1C Gene dashawn External Data Provider Start: 08-25-2024 End: 08-25-2024 Screening mammography of bilateral breasts Ming Espinoza DO Work Phone: Start: 08-02-2024 Carcinoembryonic ant igen cea Blake Hinojosa DO Work Phone: Comment on above: Serial tumor marker results determined by assays using different manufacturers or methods may not be comparable. [facility] [email or web address] polysomnography technologist and method: RUSSELL UNICEL DXI, 2 SITE IMMUNOENZYMATIC SANDWICH ASSAY. Start: 08-02-2024 Plain chest X-ray DO Chong Espinoza Work Phone: Start: 08-02-2024 Carcinoembryonic ant igen cea Blake Hinojosa DO Work Phone: Comment on above: Result Comment: Seri al tumor marker results determined by assays using different manufacturers or methods may not be comparable. [facility] polysomnography technologist and method: RUSSELL UNICEL DXI, 2 SITE IMMUNOENZYMATIC ?SANDWICH? ASSAY. PERFORMED BY: [facility] [address] [place] [place] [address] PATHOLOGIST COST CONTROLLER ANAHY MCKEE M.D. Performed By: #### C A125 ####[facility] ,#### CEA ####[facility] [id number] [facility] Start: 08-02-2024 Immunoassay tumor an tigen quantitative ca 125 Blake Hinojosa DO Work Phone: Start: 07-31-2024 ALL CBC WITH AUTO DIFF Generic External Data Provider Start: 06-29-2024 ALL CBC WITH AUTO DIFF Generic External Data Provider Start: 06-10-2024 Bacteria identified in Urine by Culture Generic External Data Provider Start: 06-02-2024 ALL CBC WITH AUTO DIFF Generic External Data Provider Start: 03-04-2023 History of renal transplant Re nal transplant recipient Generic Provider Start: 07-16-2022 End: 07-16-2022 Screening mammography of bilateral breasts DO Minglizz Espinoza Work Phone: Start: 06-18-2022 Arteriovenous fistulization DO Ming Espinoza Work Phone: Start: 05-30-2022 Ultrasound (US) dopp ler flow mapping of vein of upper limb DO Ming Espinoza Work Phone: Start: 04-01-2022 Screening colonoscopy D O Ming Espinoza Work Phone: Start: 04-01-2022 Colonoscopy Generic Pr ovider Start: 08-02-2019 Assay of lactate VIDAL KAITLIN [...] 12 lds w/i&r Vidal Madrigal Work Phone: History of renal transplant Tanja l transplant recipient (CMS/HCC) Ming Espinoza DO Work Phone: SARS Antigen (LFIA) DO Angy Espinoza Work Phone: Plan of Treatment Date Care Activity Detail Author Start: 04-01-2032 Screening for malign ant neoplasm of colon [facility] Start: 08-25-2025 Screening for malign ant neoplasm of breast Mammogram [facility] Start: 04-23-2025 Urine screening for protein Diabetes: Urine Protein Screening [facility] Start: 10-01-2024 End: 10-01-2024 Patient encounter procedure 10/01/2024 8:15 AM EST Office Visit [facility] [address] [place] [id number] Ming Espinoza DO [address] [place] [address] [facility] Start: 09-14-2024 End: 09-14-2024 Patient encounter procedure 09/14/2024 8:45 AM EST Office Visit [facility] [address] [place] [address] Blake Hinojosa, DO [address] [place] [address] [facility] Start: 08-26-2024 Urine screening for protein Diabetes: Urine Protein Screening [facility] Start: 08-02-2024 End: 08-02-2024 Patient encounter procedure 08/02/2024 11:00 AM EDT Office Visit [facility] [address] [place] [address] Blake Hinojosa, DO [address] [place] [address] [facility] Start: 08-02-2024 End: 08-02-2024 Professional / ancillary services management 08/02/2024 10:15 AM EDT Ancillary Procedure [facility] [address] [place] [address] [facility] OB Start: 08-02-2024 [facility] Start: 07-24-2024 Hemoglobin A1c measurement Violet betes: Hemoglobin A1C [facility] Start: 06-06-2024 Influenza vaccination Influenza Vacc ine (#1) [facility] Start: 03-16-2024 Bacteria identified in Urine by Culture [facility] Start: 03-15-2024 Bacteria identified in Urine by Culture [facility] Start: 11-06-2023 [facility] Start: 07-29-2023 Urine screening for protein Diabetes: Urine Protein Screening [facility] Start: 07-16-2023 Screening for malign ant neoplasm of breast Mammogram [facility] Start: 06-18-2022 [facility] Start: 06-18-2022 [facility] Start: 04-01-2022 [facility] Work Phone: Start: 06-06-2019 Influenza vaccination Flu vaccine (# 1) [place], [place] Start: 2015 Lipid screen Lipid screen [place], [place] Start: 1996 Cervical cancer screen Cervical canc er screen [place], [place] Start: 1994 DTaP/Tdap/Td vaccine (1 - Tdap) DTaP/Tdap/Td vaccine (1 - Tdap) [place] Start: 1990 HIV screen HIV screen [place], [place] Start: 1985 Glaucoma screening Diabetes: R etinopathy Screening [facility] Start: 1975 Creatinine monitoring Creatinine mon marie [place] Start: 1975 Potassium monitoring Potassium monit robyn [place] Start: 1975 Screening for malign ant neoplasm of colon [facility] 24 hour urine measurement [facility] Albumin [Mass/volume ] in Serum or Plasma [facility] Albumin/Globulin ratio [facility] Aldolase measurement [facility] End: 08-02-2019 Bacteria identified Cx Nom (U) Urine Culture Microbiology STAT One Time for 1 Occurrences starting 08/02/2019 until 08/02/2019 [place] Comment on above: One Time for 1 Occur rences starting 08/02/2019 until 08/02/2019 Bacteria identified Cx Nom (U) Urine Culture Microbiology STAT 08/02/2019 1:00 PM EDT [place] Bacteria identified in Urine by Culture URINE CULTURE, ROUTINE Lab Routine 06/10/2024 1:35 PM [facility] CA 125 CA 125 Lab Routi ne Cyst of left ovary Ordered: 08/02/2024 [facility] Comment on above: Ordered: 08/02/2024 Cancer Ag 125 [Units/volume] in Serum or Plasma [facility] Carcinoembryonic Ag [Mass/volume] in Serum or Plasma [facility] Lab Routine Cyst of left ovary Ordered: 08/02/2024 [facility] Work Phone: Comment on above: Ordered: 08/02/2024 End: 08-02-2019 Culture blood #1 Culture blood #1 Microbiology STAT One Time for 1 Occurrences starting 08/02/2019 until 08/02/2019 [place] Comment on above: One Time for 1 Occur rences starting 08/02/2019 until 08/02/2019 End: 08-02-2019 Culture blood #2 Culture blood #2 Microbiology STAT One Time for 1 Occurrences starting 08/02/2019 until 08/02/2019 [place] Comment on above: One Time for 1 Occur rences starting 08/02/2019 until 08/02/2019 EKG 12 Lead EKG 12 Lead ECG STAT 08/02/2019 12:25 PM EDT [place] Electrophoresis: [id number] [facility] Electrophoresis: [id number] [facility] Electrophoresis: beta-globulin [facility] Electrophoresis: laura ma globulin [facility] Globulin [Mass/volum e] in Serum [facility] Homogenous nuclear A b pattern [Titer] in Serum [facility] IgA [Mass/volume] in Serum or Plasma [facility] IgG [Mass/volume] in Serum or Plasma [facility] IgM [Mass/volume] in Serum or Plasma [facility] Immunofixation for Urine [facility] Initiate Oxygen Ther apy Protocol Initiate Oxygen Therapy Protocol Respiratory Care Routine Daily until discontinued starting 08/02/2019, 2 completed [place] Comment on above: Daily until disconti nued starting 08/02/2019, 2 completed End: 08-02-2019 Lactate, Sepsis Lactate, Sepsis Lab Timed Now Then Every 2hr for 2 Occurrences starting 08/02/2019 until 08/02/2019, 1 completed [place] Comment on above: Now Then Every 2hr f or 2 Occurrences starting 08/02/2019 until 08/02/2019, 1 completed Measurement of monoc lonal protein concentration [facility] Nuclear Ab [Titer] i n Serum [facility] Patient Education [facility] Work Phone: Patient referral [facility] Work Phone: Potassium [Moles/vol ume] in Serum or Plasma [facility] Work Phone: Protein [Mass/volume ] in Serum or Plasma [facility] Protein [Mass/volume ] in Urine [facility] Serum immunofixation [facility] Immunizations Immunization Date Immunization Notes Care Provider Fa melina 10-01-2024 Influenza, Madin Roman by Canine Kidney, subunit, trivalent, injectable, contains preservative Ming Espinoza DO Work Phone: [facility] 10-26-2023 Influenza, injectabl e, Madin [place] Canine Kidney, preservative free, quadrivalent Generic Provider [facility] 10-26-2023 influenza virus vacc ine, unspecified formulation Generic Provider [facility] 10-13-2021 COVID-19 [id number].COV2.S (Ainsley) DO Ming Espinoza Work Phone: [facility] 05-29-2020 influenza, high dose seasonal, preservative-free Generic Provider [facility] 08-11-2019 influenza, injectabl e, madin raymond canine kidney, preservative free Generic Provider [facility] 01-26-2018 pneumococcal polysaccharide vaccine, 23 valent Generic Provider [facility] 07-22-2014 seasonal influenza, intradermal, preservative free Generic Provider [facility] Payers Date Payer Category Payer Private Health Insurance [employer] [id number] 2023 Unknown [employer] [id number] 2023-Present [address] [place] [address] [id number] 2015 Unknown [employer] [address] xxxxxxxxx 2015-Present [phone] [address] [place] [address] xxxxxxxxx [id number] [id number] 1975 Unknown [id number] 2.16.840.1.508465.3.579. 2.173 1975 Unknown [id number] 2.16.840.1.437364.3.579. 2.593 1975 Unknown [id number] 2.16.840.1.057515.3.579. 2.593 1975 Unknown [id number] 2.16.840.1.089786.3.579. 2.593 1975 Unknown [id number] 2.16.840.1.368512.3.579. 2.593 1975 Unknown [id number] 2.16.840.1.805247.3.579. 2.593 1975 Unknown [id number] 2.16.840.1.401887.3.579. 2.593 1975 Unknown [id number] 2.16.840.1.888174.3.579. 2.593 1975 Unknown [id number] 2.16.840.1.496045.3.579. 2.593 1975 Unknown [id number] 2.16.840.1.235299.3.579. 2.1259 1975 Unknown [id number] 2.16.840.1.438551.3.579. 2.1259 1975 Unknown [id number] 2.16.840.1.755947.3.579. 2.1259 1975 Unknown [id number] 2.16.840.1.176398.3.579. 2.1259 1975 Unknown [id number] 2.16.840.1.742743.3.579. 2.1259 1975 Unknown [id number] 2.16.840.1.748659.3.579. 2.1259 1975 Unknown [id number] 2.16.840.1.496285.3.579. 2.1259 1975 Unknown [id number] 2.16.840.1.022451.3.579. 2.1259 1975 Unknown [id number] 2.16.840.1.784651.3.579. 2.1259 1975 Unknown [id number] 2.16.840.1.438412.3.579. 2.1259 1959 Self-pay [id number] 1959 Unknown [id number] 1959 Unknown [id number] 2.16.840.1.188191.19 Unknown [id number] 2.16.840.1.414451.19 Unknown [id number] 2.16.840.1.284455.3.579. 2.531 Unknown [id number] 2.16.840.1.719452.3.579. 2.531 Unknown [id number] 2.16.840.1.490875.3.579. 2.531 Unknown [id number] 2.16.840.1.626807.3.579. 2.531 Social History Date Type Detail Facility Tobacco smoking stat [facility] Unknown if ever smoked [place] Sex Assigned At Not on file [place] Start: 04-19-2024 End: 10-01-2024 Sex Assigned At [employer] Other Start: 06-05-2022 End: 03-13-2023 Tobacco smoking status VAIS Never smoked tobacco (finding) [facility] Start: 1975 Sex Assigned At Female [facility] Start: 03-13-2023 Tobacco use and exposure Smokeless tobacco non-user [facility] Start: 07-27-2024 End: 10-01-2024 Alcoholic beverage intake Lifetime non-drinker (finding) [facility] Start: 04-19-2024 End: 10-01-2024 History of Social function [facility] How [...] [facility] Start: 08-26-2024 Sex Female (finding) [facility] Medical Equipment Procedure Code Equipment Code Equipment Origin al Text Equipment Identifier Dates Use as instructed [id number] Start: 06-10-2023 End: 06-09-2024 Goals Date Patient Goal Desired Activity /State Clinical Notes 05-17-2020 to 09-14-2024 Carol Camacho MA - 09/14/2024 8:45 AM Elizabeth Camacho MA - 08/02/2024 11:00 AM Dar Hudson NP - 07/27/2024 8:20 AM EDT Note Date & Type Note Facility 09-14-2024 History of Present illness Narrative Images from the original note were not included. Blake Hinojosa, DO Obstetrics and Gynecology Mandeep Puri 1975 09/14/24 [id number] Ultrasound Follow Up Exam Chief Complaint Patient presents with Follow-up 6w follow up for LT ovarian pain. Tumor markers neg. Visit Vitals OB Status Hysterectomy Smoking Status Never OB History Para Term AB Living 1 1 1 1 SAB IAB Ectopic Multiple Live Births 1 # Outcome Date GA Lbr Jose Cruz/2nd Weight Sex Type Anes PTL Lv 1 Term 7 lb 13 oz CS-LTranv FABY Current Outpatient Medications Medication Sig Dispense Refill Envarsus XR 0.75 MG tablet ER tiZANidine (Zanaflex) 4 MG tablet Take 4 mg by mouth at bedtime amLODIPine (Norvasc) 10 MG tablet TAKE 1 TABLET BY MOUTH EVERY DAY IN THE MORNING 90 tablet 3 DULoxetine (Cymbalta) [address] capsule Take [...] Units under the skin in the morning. magnesium oxide (Mag-Ox) 400 (240 Mg) MG tablet TAKE 2 TABLETS BY MOUTH IN THE MORNING AND 2 TABLETS AT BEDTIME methenamine hippurate (Hiprex) 1 g tablet TAKE [...] 2 tablets by mouth in the morning. No current facility-administered medications for this visit. Allergies Allergen Reactions Venlafaxine Other Reaction(s): Rash, hives Venlafaxine Hcl Other Reaction(s): bad side effect Allopurinol Rash Past Surgical History: Procedure Laterality Date AV FISTULA PLACEMENT Left 06/18/2022 left upper arm per Dr. Parham. SECTION, LOW TRANSVERSE 07/23/2003 COLONOSCOPY 04/01/2022 Dx Diverticulosis DC BREAST REDUCTION 1996 TOTAL ABDOMINAL HYSTERECTOMY 03/19/2017 [...] sclera anicteric. EARS: no obvious hearing deficit. EXTREMITIES no edema. NEUROLOGIC: alert and oriented. PSYCH: cooperative with exam. ICD-10-CM 1. Cyst of left ovary N83.202 Reviewed and compared pelvic ultrasound from 08/02/24 OV. CA 125 and CEA drawn at that time as well. Educated on size of hemorrhagic cyst. If pain is tolerable, and not persistent leave alone at that time. Nothing suspicious. CARCINOEMBRYONIC ANTIGEN 0.0 - 3.0 ng/mL 1.0 CANCER ANTIGEN 125 0.0 - 38.1 12.9 Entered by Carol Camacho MA acting as scribe for Dr. Blake Hniojosa. Signature Carol Camacho MA Date 09/14/24 . Time 8:46 AM . The documentation recorded by the scribe accurately reflects the service(s) I personally performed and the decisions I made. Signature Lona Hinojosa D.O. Date 09/14/24 Time 5:00PM. documented in this encounter [facility] 08-06-2024 Note Patient tac level is 8.2, per Dr Sharla anderson, patient notified to decrease envarsus by 0.5 mg, will now be on 1.5 mg daily of envarsus, repeat level in one week. Patient verbalized understanding. [facility] 08-02-2024 History of Present illness Narrative Images from the original note were not included. Blake Hinojosa, DO Obstetrics and Gynecology Mandeep Rhianna Khushi 1975 08/02/24 [id number] Yearly Wellness Exam Chief Complaint Patient presents [...] LOW TRANSVERSE 07/23/2003 COLONOSCOPY 04/01/2022 Dx Diverticulosis DC BREAST REDUCTION 1996 TOTAL ABDOMINAL HYSTERECTOMY 03/19/2017 [...] 08/02/24 Time 5:00PM. documented in this encounter [facility] 07-27-2024 History of Present illness Narrative Images [...] Active Problem List Diagnosis Benign essential hypertension ([facility]) Fibromyalgia MICHELLE (iron deficiency anemia) RADHA (obstructive sleep apnea) Renal transplant recipient ([facility]) Type 2 diabetes mellitus with diabetic chronic kidney disease ([facility]) Mixed anxiety and depressive disorder Dyslipidemia ([facility]) Gastroesophageal reflux disease Immunosuppressive management encounter following kidney transplant ([facility]) ADPKD (autosomal dominant polycystic kidney disease) Polyarthritis of multiple sites Anxiety Anemia of renal disease NSTEMI (non-ST elevated myocardial infarction) ([facility]) Polycystic kidney disease Secondary hyperparathyroidism ([facility]) Tonsillolith Stage 4 chronic kidney disease ([facility]) Chronic kidney disease, stage 5 ([facility]) Gout Review of Systems Constitutional: Positive for [...] Lucero Hudson NP documented in this encounter [facility] 07-09-2024 Note Positive urine cultu re. Per Dr. Blanchard, Macrobid 100 mg BID x 7 days ordered to patient's pharmacy. Pt was informed and verbalized understanding. 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 At this point we will recommend continuing the methenamine prophylaxis. She does not prove effective can consider lowering the Myfortic. Sree Blanchard MD [facility] 06-15-2024 Note Patient notified of Augmentin Rx sent in to pharmacy for positive urine culture by NORMA Jasso per [employer] secure chat. Patient verbalizes understanding. [facility] 06-10-2024 Note Patient requests uri ne culture order to be refaxed to [facility]. as the hospital is telling her not received. Order promptly refaxed with confirmation received. Pt advised to FU with coordinator and alternative fax number if hospital reports again no receipt of the order. She acknowledged understanding [facility] 06-09-2024 Note Tac level 3.0, Mg [...] Patient requests order to be faxed to [facility]. [facility] 05-19-2024 Note Chief complaint: Rec urrent [...] on file Intimate Partner Violence: Unknown (11/27/2023) [place] Safety & Environment Fear of Current or Ex-Partner: Not on file Emotionally Abused: Not on file Physically Abused: Not on file Sexually Abused: Not on file Physically or Sexually Abused: Not on file Housing Stability: Not on file Past Medical/Surgical History: Past Medical History: Diagnosis Date Anxiety Chronic kidney disease, stage 4 (severe) (CMS/[facility]) COVID-19 Depressive disorder Fibromyalgia Gastroesophageal [...] back after the CT. Sree Blanchard MD [facility] 04-29-2024 Note Patient urine cultur e/susceptible medications reviewed over the phone with Dr. Benral. New orders for Amoxicillin 500 mg for 7 days. Patient recently had renal ultra sound done. New referral for urology. Coordinator spoke with urology, patient scheduled for May 19 at 3:30. Standing order placed for urinalysis for patient to obtain around May 14, IF continuing to have symptoms of UTI, this way it is fresh results prior to urology appointment. Patient verbalized understanding. [facility] 04-27-2024 Note 04/27/24 Chief Complaint Patient [...] Txp Referring: Yaneth Muñoz Preferred Pharmacy: [facility] - [place], [place] - [address] [place] [address] [place] [address] [facility] [address] [facility][id number] - [place], [place] [address] [facility] [address] [address] [facility] [place] [address] [place] [address] Subjective Visit Vitals BP 121/60 (BP Location: [...] Dose Status amLODIPine (Norvasc) 10 mg tablet [id number] Yes Take 1 tablet (10 mg) by mouth in the morning. Aguila Parrish MD Taking Active bumetanide (Bumex) 2 mg tablet [id number] Take 1 tablet (2 mg) by mouth in the morning. Patient not taking: Reported on 11/08/2022 Aguila Parrish MD 10/25/22 2359 docusate sodium (Colace) 100 mg capsule [id number] Take 1 capsule (100 mg) by mouth in the morning and at bedtime. Patient not taking: Reported on 09/01/2023 Paty Ansari NP Active DULoxetine (Cymbalta) [address] capsule [id number] Yes Take 1 capsule every day by oral route. Historical Provider, Taking Active Envarsus XR 1 mg tablet ER [id number] Yes TAKE 3 TABLETS BY MOUTH ONCE DAILY IN THE MORNING. TAKE ALONG WITH 0.75 MG TABLETS DIRECTED FOR TOTAL DOSE UP TO 4.5 MG PER DAY. Patient taking differently: Take 2 mg by mouth in the morning. Aguila Parrish MD Taking Flag for Review famotidine (Pepcid) 20 mg tablet [id number] Yes Take 1 tablet (20 mg) by mouth in the morning. Patient taking differently: Take 20 mg by mouth if needed. Aguila Parrish MD Taking Active febuxostat (Uloric) 40 mg tablet [id number] Take 0.5 tablets every day by oral route. Historical ProviderMD Active ferrous sulfate 325 (65 Fe) MG tablet [id number] Yes Take 65 mg by mouth every other day. Historical ProviderMD Taking Active fish oil ([place]-3) 60-90-500 mg capsule [id number] Take 2 capsules (1,000 mg) by mouth in the morning and at bedtime. Patient not taking: Reported on 12/23/2023 Sujit Bernal MD Active Levemir FlexPen 100 unit/mL (3 mL) pen [id number] INJECT 12 UNITS SUBCUTANEOUS IN AM 30 DAYS Historical ProviderMD Active magnesium oxide (Mag-Ox) 400 mg (241.3 mg magnesium) tablet [id number] Yes TAKE 2 TABLETS BY MOUTH IN THE MORNING AND 2 TABLETS AT BEDTIME Sree Blanchard MD Taking Active mycophenolate (Myfortic) 180 mg EC tablet [id number] Yes Take 4 tablets (720 mg) by mouth in the morning and at bedtime. Aguila Parrish MD Taking Active oxyCODONE-acetaminophen (Percocet) 5-325 mg tablet [id number] Take 1 tablet by mouth every 6 (six) hours if needed for severe pain (8-10 pain score) for up to 20 doses. Patient not taking: Reported on 09/01/2023 Paty Ansari NP Active potassium chloride CR (Klor-Con M20) 20 mEq ER tablet [id number] Yes Take 1 tablet (20 mEq) by mouth in the morning. Do not crush or chew. Andrea Elizondo MD Taking Active pravastatin (Pravachol) 40 mg tablet [id number] Yes Take 1 tablet (40 mg) by mouth at bedtime. Patient taking differently: Take 40 mg by mouth at bedtime. 40 mg 4 times a week. Fri Kevin Raymond MD Taking Active semaglutide (Ozempic) 2 mg/dose (8 mg/3 mL) pen injector [id number] Yes Inject 2 mg under the skin every 7 (seven) days. Historical ProviderMD Taking Active tacrolimus ER (Envarsus XR) 0.75 mg tablet ER [id number] Yes Take 2 tablets (1.5 mg) by mouth in the morning. Script total 4.5 mg daily Priyanka Villanueva MD Taking Active tacrolimus ER (Envarsus XR) 1 mg tablet ER [id number] Yes Take 3 tablets (3 mg) by mouth in the morning. Script total 4.5 mg daily Priyanka Villanueva MD Taking Active Immunization History Administered Date(s) Administered [employer] Sars-Cov-2 Vaccination 10/13/2021 Patient Active Problem List Diagnosis Anxiety COVID-19 Depressive disorder Gastroesophageal reflux disease Gout Primary hyper (more content not included)... [facility] 04-23-2024 Note Patient TAC level, 1 [...] making change in dose. Patient verbalized understanding. [facility] 04-21-2024 Note Patient called, armida lamar she has had frequent UTI's that her [...] urine culture to be done, voiced understanding. [facility] 03-25-2024 Note Patient called, armida lamar PCP stopped Bactrim and started Keflex for E-coli in urine. On 500 mg tid x 7 days. Advised to hydrate well and get labs, repeat urine culture once completed. Voiced understanding. [facility] 03-16-2024 Note Patient called benigno borrero she is currently being treated for a UTI with bactrim BID for 7 days. [facility] 02-25-2024 Note Received a call from the patient regarding the non-compliant lab letter. Explained to the patient that we had gotten some labs on her but not a CMP or BMP. Patient stated that she has always gotten her labs drawn at [facility]. She will be getting labs drawn tomorrow and she will make sure that the draw the correct labs and have the results sent to us. [facility] 12-23-2023 Note 12/23/23 Chief Complaint Patient presents with Kidney Follow-up Pt has questions about her lab work. PCP: Ming Espinoza MD Txp Referring: Felecia Barriga Pharmacy: [facility] - [place], [place] - [address] [place] [address] [place] [address] [facility] [address] [id number] - [place], [place] [address] [facility] [address] [address] [facility] [address] [facility] [address] [facility] [address] Subjective Visit Vitals BP 116/73 (BP Location: [...] Review Audit Reviewed by Trupti Sanchez MA (Matrix Bath Operator) on 12/23/23 at 1430 Medication Order Taking? Sig Documenting Provider Last Dose Status amLODIPine (Norvasc) 10 mg tablet [id number] Take 1 tablet (10 mg) by mouth in the morning. Aguila Parrish MD 10/24/23 0548 bumetanide (Bumex) 2 mg tablet [id number] Take 1 tablet (2 mg) by mouth in the morning. Patient not taking: Reported on 11/08/2022 Aguila Parrish MD 10/25/22 2359 docusate sodium (Colace) 100 mg capsule [id number] Take 1 capsule (100 mg) by mouth in the morning and at bedtime. Patient not taking: Reported on 09/01/2023 Paty Ansari NP Active DULoxetine (Cymbalta) [address] capsule [id number] Yes Take 1 capsule every day by oral route. Historical ProviderMD Taking Active Envarsus XR 1 mg tablet ER [id number] Yes TAKE 3 TABLETS BY MOUTH ONCE DAILY IN THE MORNING. TAKE ALONG WITH 0.75 MG TABLETS DIRECTED FOR TOTAL DOSE UP TO 4.5 MG PER DAY. Patient taking differently: Take 2 mg by mouth in the morning. Aguila Parrish MD Taking Active famotidine (Pepcid) 20 mg tablet [id number] Yes Take 1 tablet (20 mg) by mouth in the morning. Patient taking differently: Take 20 mg by mouth if needed. Aguila Parrish MD Taking Active febuxostat (Uloric) 40 mg tablet [id number] Take 0.5 tablets every day by oral route. Historical ProviderMD Active ferrous sulfate 325 (65 Fe) MG tablet [id number] No Take 65 mg by mouth every other day. Historical ProviderMD Not Taking Active fish oil ([place]-3) 60-90-500 mg capsule [id number] No Take 2 capsules (1,000 mg) by mouth in the morning and at bedtime. Patient not taking: Reported on 12/23/2023 Sujit Bernal MD Not Taking Active Levemir FlexPen 100 unit/mL (3 mL) pen [id number] No INJECT 12 UNITS SUBCUTANEOUS IN AM 30 DAYS Historical ProviderMD Not Taking Flag for Review magnesium oxide (Mag-Ox) 400 mg (241.3 mg magnesium) tablet [id number] Yes TAKE 2 TABLETS BY MOUTH IN THE MORNING AND 2 TABLETS AT BEDTIME Sree Blanchard MD Taking Active mycophenolate (Myfortic) 180 mg EC tablet [id number] Yes Take 4 tablets (720 mg) by mouth in the morning and at bedtime. Aguila Parrish MD Taking Active oxyCODONE-acetaminophen (Percocet) 5-325 mg tablet [id number] Take 1 tablet by mouth every 6 (six) hours if needed for severe pain (8-10 pain score) for up to 20 doses. Patient not taking: Reported on 09/01/2023 Paty Ansari NP Active potassium chloride CR (Klor-Con M20) 20 mEq ER tablet [id number] Yes Take 1 tablet (20 mEq) by mouth in the morning. Do not crush or chew. Andrea Elizondo MD Taking Active pravastatin (Pravachol) 40 mg tablet [id number] Yes Take 1 tablet (40 mg) by mouth at bedtime. Patient taking differently: Take 40 mg by mouth at bedtime. 40 mg 4 times a week. Fri Sat Kevin Raymond MD Taking Active Immunization History Administered Date(s) Administered [employer] Sars-Cov-2 Vaccination 10/13/2021 Patient Active Problem List Diagnosis Anxiety COVID-19 Depressive disorder Gastroesophageal reflux disease Gout Primary hypertension Multiple congenital cysts of kidney Stage 4 chronic kidney disease ([facility]/HCC) Encounter for aftercare following kidney transplant Immunosuppressed status ([facility]) Hyperuricemia Metabolic acidosis Bilateral lower [...] Smokeless tobacco: Cara (more content not included)... [facility] 10-02-2023 Note Per phone order Tyler sorto MD, increase Kdur from 10meq every day to 20meq every day due to K 3.2 on 09/26/23. Pt informed and verbalized understanding. Amiloride removed from her MAR as she reported in July she is not taking and reconfirmed today. [facility] 09-01-2023 Note Attestation signed by Sujit [...] making adequate urine output with no proteinuria. [place] kidneys with adult polycystic kidney disease BK [...] moo (more content not included)... [facility] 07-30-2022 Evaluation note Encounter Date Diagnosis [...] She has gout and follows with a occup therapist. She takes Urolic and denies any recent gout flare Jul, Metabolic acidemia, unspecified (ICD-10 - P19.9) She has metabolic acidosis due to the advanced CKD. Continue oral Sodium Bicarbonate [employer] Other 09-28-2022 Evaluation note* Encounter Date Diagnosis [...] disease, unspecified CKD stage (ICD-10 - N18.9) [employer] [facility] 09-13-2022 [facility] Encounter Date Diagnosis Assessment Notes Treatment Notes Treatment Clinical Notes May, Pre-op testing (ICD-10 - Z01.818) [employer] Other 08-25-2022 Evaluation note* Encounter Date Diagnosis [...] will schedule this in the near future. [employer] Other 07-28-2022 Evaluation note* Encounter Date Diagnosis [...] explained to her the potential need of CHEMICAL MIXER in future. I discussed with her different options of CHEMICAL MIXER including PD, HTN renal transplant. I provide [...] stephens s gout and follows with a occup therapist. She takes Urolic and denies any recent gout flare [employer] Other 07-26-2022 Evaluation note* Encounter Date Diagnosis [...] care provider if no improvement of symptoms. [employer] Other 05-24-2022 Evaluation note* Encounter Date Diagnosis Assessment Notes Treatment Notes Treatment Clinical Notes February, Screening for colon cancer (ICD-10 - Z12.11) [employer] Other 03-03-2022 Evaluation note* Encounter Date Diagnosis [...] explained to her the potential need of CHEMICAL MIXER in future. I discussed with her different options of CHEMICAL MIXER including PD, HTN renal transplant. I provide [...] She has gout and follows with a occup therapist. She takes Urolic and denies any recent gout flare [employer] Other 06-25-2021 NotePatient Outreach (NEPHMN) MANDEEP PURI ([id number]) 1975 F Date Time Provider Department 03/30/21 PERRI BARRETT During your visit today, we recorded the following information about you: Allergies As of Date: 03/30/2021 Noted Allergy Reaction ALLOPURINOL 08/02/2019 4 - Hives Date Reviewed: 03/30/2021 Reviewed by: Perri Barrett MD - Fully Assessed Visit Diagnosis:Screening for genitourinary condition [Z13.89] Order(s):URINALYSIS, DIPSTICK ONLY [SQUA] Order #: [id number]. #:[id number] Prescriptions as of 03/30/2021 Sig: DULOXETINE 60 [...] dominant polycystic kidney dis*03/30/2021 Encounter Status:Closed by RUPA BAZANUSER on 04/02/21[facility] 03-30-2021 NoteHNO ID: [id number] Author: Perri Barrett MD Service: ? Author Type: Physician Type: Progress Notes Filed: 03/30/2021 10:25 AM Note Text: Mrs. Puri is a 45 year old from [place], [place] here with her Evan wilson seen [...] SOCIAL / FAMILY Hx: ADPKD, CAD OCCUPATION: [employer] ADL / LIVING SITUATION: MARITAL STATUS:M CHILDREN: [...] gm 10) MTOR ? sirolimus (rapamycin) [facility] History general Narrative - Reported * Type Description Date Medical History HTN (hypertension) Medical History Anxiety Medical History polycystic kidneys Medical History COVID 05-17-2020 Surgical History C section Surgical History BREAST REDUCTION Hospitalization History child Hospitalization History KIDNEY INFECTION 07/2019 Hospitalization History COVID AND DEHYDRATION [employer] Other [id number] History general Narrative - Reported* Type Description Date Medical History HTN (hypertension) Medical History Anxiety Medical History polycystic kidneys Medical History COVID 05-17-2020 Medical History end stage renal disease Surgical History C section Surgical History BREAST REDUCTION Surgical History colonoscopy 04/01/2022 Surgical History wisdom teeth 03/24/2022 Hospitalization History child Hospitalization History KIDNEY INFECTION 07/2019 Hospitalization History COVID AND DEHYDRATION [employer] [facility] Other 08-12-2020 History general Narrative - Reported* [...] INFECTION 07/2019 Hospitalization History COVID AND DEHYDRATION [employer] Other 08-12-2020 History general Narrative - Reported* [...] INFECTION 07/2019 Hospitalization History COVID AND DEHYDRATION [employer] Other Evalujemrk noteNo assessment information available [facility] Work Phone: [email or web address] noteNo InformationNort Prestodiag Other evaluation note* Diagnosis Onset Date Resolution Status Dysuria acute UTI (urinary tract infection) acute [facility] Work Phone: [email or web address] note* Diagnosis Acute non-recurrent pansinusitis- Primary Side effect of medication documented in this encounter [facility]* Diagnosis Cyst of left ovary- Primary Other and unspecified ovarian cyst Dyspareunia in female documented in this encounter [facility]* Diagnosis Cyst of left ovary Other and unspecified ovarian cyst documented in this encounter [facility]* Diagnosis Benign essential hypertension (CMS/HCC)- Primary Essential hypertension, benign Renal transplant recipient ([facility]) Immunosuppressive management encounter following kidney transplant ([facility]) Encounter for long-term (current) use of other medications Anemia of renal disease Anemia in chronic kidney disease Iron deficiency anemia, unspecified iron deficiency anemia type Type 2 diabetes mellitus with stage 3a chronic kidney disease, without long-term current use of insulin (HCC) (CMS/HCC) Dyslipidemia (CMS/HCC) Other and unspecified hyperlipidemia Fibromyalgia Unspecified myalgia and myositis Need for immunization against influenza Need for prophylactic vaccination and inoculation against influenza documented in this encounter [facility] Assessments Diagnosis Acute sepsis (HCC)- Primary Acute cystitis without hematuria Acute cystitis Chronic renal failure, stage 4 (severe) ([facility]) Polycystic kidney disease Polycystic kidney, unspecified type Advance Directives Documents on File Type Date Recorded Patient Medical Charge Entry Specialist Expl anation Advance Directives and Living Will Power of Prototype Deicer Assembler Advance Directive Response Recorded Date/ Time Advance Directives No December 12 12:26pm Advance Directive Response Recorded Date/ Time Advance Directives No December 12 11:26am Summary Purpose Family History Relationship Condition Age at Onset Recorded Date/T [...] lesion, 3.[address] 07/02/24. Reason Comments Follow-up 6w follow up for LT ovarian pain. Tumor markers neg. Reason Comments 6 mos. follow up INFORMATION SOURCE (unrecogn ized section and content) DATE CREATED AUTHOR 08/04/2019 [facility] DATE CREATED AUTHOR AUTHOR'S ORGANIZ ATION 04/28/2020 [facility] DATE CREATED AUTHOR AUTHOR'S ORGANIZ ATION 09/12/2020 [facility] DATE CREATED AUTHOR AUTHOR'S ORGANIZ ATION 11/07/2021 [facility] DATE CREATED AUTHOR AUTHOR'S ORGANIZ ATION 02/27/2022 [facility] DATE CREATED AUTHOR AUTHOR'S ORGANIZ ATION 08/04/2022 [facility] DATE CREATED AUTHOR AUTHOR'S ORGANIZ ATION 08/08/2024 [facility] DATE CREATED AUTHOR AUTHOR'S ORGANIZ ATION 08/28/2024 [facility] DATE CREATED AUTHOR AUTHOR'S ORGANIZ ATION 09/17/2024 [facility] d[facility] Specialists EPIC Care Teams (unrecognized [...] March 15, 2024 End: March 15, 2024 Web Site Manager Relationship Specialty Start Date End Date Ming Espinoza DO [address] [place] [address] PCP - Medical [employer] 10/06/21 10/05/99 Ming Espinoza DO [address] [place] [address] PCP - General Internal Medicine 05/02/23 Web Site Manager Relationship Specialty Start Date End Date Ming Espinoza DO [address] [place] [address] PCP - [facility] [employer] 10/06/21 10/05/99 Ming Espinoza DO [address] [place] [address] PCP - General Internal Medicine 05/02/23 Web Site Manager Relationship Specialty Start Date End Date Ming Espinoza DO [address] [place] [address] PCP - [facility] [employer] 10/06/21 10/05/99 Ming Espinoza DO [address] [place] [address] PCP - General Internal Medicine 05/02/23 Web Site Manager Relationship Specialty Start Date End Date Ming Espinoza DO [address] [place] [address] PCP - [facility] [employer] 10/06/21 10/05/99 Ming Espinoza DO [address] [place] [address] PCP - General Internal Medicine 05/02/23 Team Status: Inactive Member Role Status Dates [...] August 25, 2024 End: August 25, 2024 Web Site Manager Relationship Specialty Start Date End Date Ming Espinoza DO [address] [place] [address] PCP - [facility] [employer] 10/06/21 10/05/99 Ming Espinoza DO [address] [place] [address] PCP - General Internal Medicine 05/02/23 Web Site Manager Relationship Specialty Start Date End Date Ming Espinoza DO [address] [place] [address] PCP - [facility] [employer] 10/06/21 10/05/99 Ming Espinoza DO [address] [place] [address] PCP - General Internal Medicine 05/02/23 Web Site Manager Relationship Specialty Start Date End Date AlexisMing DO [address] [place] [address] PCP - [facility] [employer] 10/06/21 10/05/99 Ming Espinoza DO [address] [place] [address] PCP - General Internal Medicine 05/02/23 Web Site Manager Relationship Specialty Start Date End Date Ming Espinoza, DO [address] [place] [address] PCP - [facility] 10/06/21 10/05/99 Ming Espinoza, [address] [place] [address] PCP - General Internal Medicine 05/02/23 Goals [...] BE BASED ON THE PRIMARY CLINICAL RECORDS. [employer] provides no warranty or guarantee of the accuracy or completeness of information in this document.
[2024-10-02 08:37] LABS: Alanine Aminotransferase 13 U/L (14-59); Albumin Globulin Ratio 0.8; Albumin Level 3.3 g/dL (3.4-5.0); Alkaline Phosphatase 84 U/L (46-116); Anion Gap 14.6; Aspartate Amino Transferase 11 U/L (15-37); BUN Creatinine Ratio 12.4; Bilirubin Direct 0.1 mg/dL (0.0-0.2); Bilirubin Total 0.3 mg/dL (0.2-1.0); Calcium 9.3 mg/dL (8.5-10.1); Chloride 105 mmol/L (98-107); Estimated GFR (African America 50 (>=60 mL/min/1.73m^2); Estimated GFR (Non-African Ame 41 (>=60 mL/min/1.73m^2); Globulin 4.2 g/dL; Glucose 102 mg/dL (74-106); Magnesium 1.8 mg/dL (1.8-2.4); Phosphorus 3.9 mg/dL (2.6-4.7); Potassium 3.6 mmol/L (3.5-5.1); Sodium 141 mmol/L (136-145); Total Protein 7.5 g/dL (6.4-8.2); Uric Acid 4.2 mg/dL (2.6-6.0)
[2024-10-02 08:49] LABS: Basophils Percent Auto 0.4 % (0.2-2.0); Eosinophils Absolute Auto 0.2 10^3/uL (0.0-0.7); Eosinophils Percent Auto 2.6 % (0.9-7.0); Hematocrit 33.5 % (36.0-48.0); Hemoglobin 10.6 g/dL (12.0-16.0); Immature Granulocytes Abs Auto 0.05 10^3/uL (0.00-0.03); Immature Granulocytes Pct Auto 0.6 % (0.0-0.5); Lymphocytes Absolute Auto 1.1 10^3/uL (1.2-3.8); Lymphocytes Percent Auto 14.1 % (20.5-60.0); Mean Corpuscular HGB Conc 31.6 g/dL (29.9-35.2); Mean Corpuscular Hemoglobin 27.8 pg (26.7-34.0); Mean Corpuscular Volume 87.9 fL (81.0-99.0); Mean Platelet Volume 8.7 fL (9.5-13.5); Monocytes Absolute Auto 0.5 10^3/uL (0.3-0.8); Monocytes Percent Auto 6.2 % (1.7-12.0); Neutrophils Absolute Auto 5.9 10^3/uL (1.4-6.5); Neutrophils Percent Auto 76.1 % (43.0-75.0); Platelet Count 330 10^3/uL (150-450); Red Blood Count 3.81 10^6/uL (4.20-5.40); Red Cell Distribution Width 15.2 % (11.0-15.0); White Blood Count 7.7 10^3/uL (4.0-11.0)
[2024-10-05 23:07] LABS: Tacrolimus (FK506), Blood 3.7 ng/mL (2.0-20.0)
== END 2024-10-02 07:57 | disposition home or self-care (01) ==
PROVIDERS: PCP Internal Medicine
DX: E78.5 Hyperlipidemia, unspecified (principal); Z94.0 Kidney transplant status; R60.9 Edema, unspecified; R73.01 Impaired fasting glucose
CPT/HCPCS: 36415; 80053; 80197; 82248; 83735; 84100; 84550; 85025

== ENCOUNTER 2024-10-14 07:36 | Outpatient (OUT) | payer OTHER, SELFPAY ==
[2024-10-14 07:49] LABS: Bilirubin Urine NEGATIVE (NEGATIVE); Blood Urine TRACE-I (NEGATIVE); Clarity Urine CLEAR (CLEAR); Color Urine LT. YELLOW (YELLOW); Glucose Urine UA NEGATIVE (NEGATIVE); Ketones Urine NEGATIVE (NEGATIVE); Leukocyte Esterase Urine LARGE (NEGATIVE); Nitrite Urine POSITIVE (NEGATIVE); Protein Urine NEGATIVE (NEG/TRACE); Specific Gravity Urine 1.015 (1.005-1.025); Urobilinogen Urine 0.2 EU/dL (0.2-1.0); pH Urine 7.5 (5.0-9.0)
[2024-10-14 08:17] LABS: BOX Test Reference Lab FIRELANDS
== END 2024-10-14 07:37 | disposition home or self-care (01) ==
LOC: LAB 07:36
PROVIDERS: PCP Internal Medicine
DX: R30.0 Dysuria (principal)
CPT/HCPCS: 36415; 81003; 87086; 87150; 87186

== ENCOUNTER 2024-10-30 08:42 | Outpatient (OUT) | payer OTHER, SELFPAY ==
--- OUTSIDE RECORDS SUMMARY | 2024-10-30 08:45 | XMS_ITS | CCD ---
Author Organization [facility] Care Team Providers Care Manager Instrumentation Name Role Phone Ming Espinoza Primary Care Provider VIDAL MADRIGAL Attending Unavailable MING ESPINOZA Primary Care Unavailable Toni, Yaneth Unavailable Shabbir Jones Unavailable Dipika Stinson Unavailable Jesus Parham Unavailable [phone] DO Ming Espinoza Primary Care Provider MD Shabbir Jones Attending Provider [phone] MD Yaneth Muñoz Attending Provider MD Jesus Parham Attending Provider [phone] Estefania Vo Unavailable DO Ming Espinoza Primary [...] YANETH Attending Unavailable TONI, YANETH Consulting Unavailable MICAELA, DR PARRY Admitting Unavailable ALEXIS, DR ACOSTA [...] Unavailable DO Alexis Ming Primary Care Provider [phone] MD Perri Ceja Attending Provider CECILIA Edwards Attending Provider Ming Espinoza DO Unavailable [phone] Ming Espinoza DO Primary Care Provider DO Ming Espinoza Primary Care Provider [phone] MD Jesus Ayala Attending Provider [phone] DO Blake Hinojosa Referring Provider [phone] Ming Espinoza DO Primary Care Provider Jesus Ayala MD Attending Provider [phone] Blake Hinojosa DO Referring Provider Blake Hinojosa DO Attending Provider MING ESPINOZA Attending Unavailable MING ESPINOZA Referring Unavailable MING ESPINOZA Referring Unavailable LUCERO HUDSON Attending Unavailable MING ESPINOZA Attending Unavailable MUNIRA PHAN Referring Unavailable BLAKE HINOJOSA Attending Unavailable BLAKE HINOJOSA Referring Unavailable MING ESPINOZA Referring Unavailable LUCERO HUDSON Attending Unavailable BLAKE HINOJOSA Attending Unavailable BLAKE HINOJOSA Attending Unavailable MING ESPINOZA Attending Unavailable Sujit Monterroso MD Attending Provider [phone] Perri Ceja Attending Unavailable Ming Espinoza [facility] Unavailable Perri Ceja Admitting Unavailable Jerry, Andreia Solano Admitting Unavailable Andreia Edwards Attending Unavailable Alexis Ming [facility] Unavailable Jesus Ayala Admitting Unavailable Jesus Ayala Attending Unavailable Blake Hinojosa Referring Unavailable Ming Espinoza [facility] Unavailable Dolores, Sujit Admitting Unavailable Dolores, Sujit Attending Unavailable Ming Espinoza [facility] Unavailable Blake Hinojosa Admitting Unavailable Blake Hinojosa Attending Unavailable SREE BLANCHARD Referring Unavailable MUNIRA PHAN Attending Unavailable SREE BLANCHARD Attending Unavailable LO, SREE Attending Unavailable DOLORES, SUJIT Referring Unavailable CRISENBERSalome, MUNIRA Attending Unavailable Allergies Allergy Classification Reported Allergen(s) Allergy Type Date of Onset Reaction(s) Facility (20 sources) Allopurinol; Translations: [ALLOPURINOL] Drug Allergy 9 hives, Rash [place], [place] (20 sources) venlafaxine; Translations: [venlafaxine] Drug Allergy 2 Rash, Rash, hives [facility] (16 sources) venlafaxine; Translations: [VENLAFAXINE HCL] Drug Allergy 1 [facility] (1 source) Allopurinol Drug Allergy 4 [facility] Repository Medications Current Medications Medication Drug Class(es) Dates Sig (Normalized) Sig (Original) amLODIPine 10 mg oral tablet (19 sources) Dihydropyridine Calcium Channel Eliz Start: 08-21-2023 [...] acid 7540 MG / polyethylene glycol 3350 71922 MG / potassium chloride 1200 MG / sodium ascorbate 04915 MG / sodium chloride 3200 MG Powder for Oral Solution) / 1 (polyethylene glycol 3350 075649 MG / potassium chloride 1000 MG / sodium chloride 2000 MG / sodium sulfate 9000 MG Powder for Oral Solution) } Pack [Plenvu] (1 source) Osmotic Laxative, Vitamin C Start: 02-26-2022 Plenvu 140 GM dose 1 pouch at 4pm, dose 2 pouch A & B at 11pm Orally twice a day for 1 days BIN:[id number] PCN: [id number] GROUP:[id number] ID:[id number] February, Active cephalexin 500 mg oral capsule [...] 4:51pm cetirizine hydrochloride 10 mg oral tablet (13 sources) Histamine-1 Receptor Antagonist Start: 03-15-2024 take [...] Active magnesium oxide 400 mg oral tablet (20 sources) Start: 03-31-2024 End: 08-02-2024 take 2 [...] 11:00pm methenamine hippurate 1000 mg oral tablet (9 sources) take 1 tablet by mouth twice daily methenamine hippurate (Hiprex) 1 g tablet TAKE 1 TABLET (1 G) BY MOUTH TWO TIMES DAILY. Active Multivitamin (Multiple Vitamins) tablet (4 sources) Start: 03-15-2024 take 1 tablet by [...] Mycophenolate Sodium 180 mg tablet,delayed release (DR/EC) (2 sources) Start: 2023 take 1 tablet by mouth once daily Mycophenolate Sodium 180 mg tablet,delayed release (DR/EC) Active 180 MG PO Daily March 14, 2024 11:00pm mycophenolic acid 180 mg delayed release oral tablet (15 sources) Antimetabolite Immunosuppressant take 4 tablets by mouth in the morning mycophenolate (Myfortic) 180 MG EC tablet Take 4 tablets by mouth in the morning and 4 tablets before bedtime. Active microencapsulated potassium chloride 20 meq extended release oral tablet (15 sources) take 1 tablet by mouth once daily KLOR-CON 20 MEQ ER tablet Take 20 mEq by mouth Daily Active Potassium Chloride (Klor-Con M20) 20 mEq tablet,ER particles/crystals (4 sources) Start: 2023 Potassium Chloride (Klor-Con M20) 20 mEq tablet,ER particles/crystals Active 20 MEQ PO Daily March 14, 2024 11:00pm Start: 03-15-2024 Potassium Chlo ride (Klor-Con M20) 20 mEq tablet,ER particles/crystals Active 20 MEQ PO Daily March 15, 2024 12:00am pravastatin sodium 40 mg oral tablet (19 sources) HMG-CoA Reductase Inhibitor Start: 03-15-2024 take 1 tablet by mouth once daily Pravastatin 40 mg tablet Active 40 MG PO Daily March 14, 2024 11:00pm Semaglutide (Ozempic) 2 mg/dose (8 mg/3 mL) pen injector (4 sources) Start: 03-15-2024 Semaglutide (Ozempic) 2 mg/dose [...] without long-term current use of insulin (CMS/HCC) Inject 1 mg under the skin 1 (one) time per week 3 mL 03/23/2024 Active semaglutide (Ozempic, 1 MG/DOSE,) 4 MG/3ML solution pen-injector (13 sources) Start: 06-29-2024 inject 1 mg by [...] mg / trimethoprim 160 mg oral tablet (4 sources) Dihydrofolate Reductase Inhibitor Antibacterial, Sulfonamide Antimicrobial Start: 03-15-2024 take 1 tablet by mouth twice daily Sulfamethoxazole-Trimethoprim (Bactrim Ds) 800-160 mg tablet Active 1 TAB PO Twice daily 14 March 14, 2024 11:00pm 24 hr tacrolimus 0.75 mg extended release oral tablet (20 sources) Calcineurin Inhibitor Immunosuppressant Start: 09-06-2024 Envarsus XR 0.75 MG tablet E R 09/06/2024 Active Start: 03-15-2024 Tacrolimus (En varsus Xr) 1 mg tablet extended release 24 hr Active MG PO March 14, 2024 11:00pm tiZANidine 4 mg oral tablet (10 sources) Central alpha-2 Adrenergic Agonist Start: 08-31-2024 take 1 tablet by mouth at bedtime tiZANidine (Zanaflex) 4 MG tablet Take 4 mg by mouth at bedtime 08/31/2024 Active End: 09-14-2024 tiZANidine HCl (ZANAFLEX PO) Take by mouth 09/14/2024 Discontinued tiZANidine HCl ( ZANAFLEX PO) Take by mouth Active Completed/Discontinued Medications Medication Drug Class(es) Dates Sig (Normalized) Sig (Original) acetaminophen 500 mg oral tablet (10 sources) Start: 08-02-2019 End: 08-02-2019 acetaminophen (TYLENOL) tablet 1,000 mg Start: 08-02-2019 take 2 tablets by mo uth once daily as needed for pain Acetaminophen (Tylenol Extra Strength) 500 mg Tablet Active 1000 MG PO Daily as needed for Muscle Pain August 01, 2019 11:00pm calcitriol 0.96947 mg oral capsule (9 sources) Vitamin D3 Analog Start: 01-20-2019 End: 08-02-2019 Calcitriol (Rocaltrol) 0.25 mcg Capsule Discontinued 0.25 MCG PO MoWeFr@0900 January 19, 2019 11:00pm August 02, 2019 4:53pm calcium carbonate 500 mg chewable tablet (9 sources) Start: 01-19-2019 End: 08-02-2019 take 1 [...] IV syringe ciprofloxacin 250 mg oral tablet (9 sources) Quinolone Antimicrobial Start: 05-15-2020 End: 04-01-2022 take 1 tablet by mouth every twelve hours Ciprofloxacin Hcl (Cipro) 250 mg tablet Discontinued 250 MG PO Q12H 6 3 May 14, 2020 11:00pm April 01, 2022 6:03am ergocalciferol 1.25 mg oral capsule (9 sources) Provitamin D2 Compound Start: 01-20-2019 End: 08-02-2019 take 1 capsule by mouth every month Ergocalciferol (Vitamin D2) 50,000 unit capsule Discontinued 39952 UNIT PO every month January 19, 2019 11:00pm August 02, 2019 4:53pm febuxostat 40 mg oral tablet (18 sources) Xanthine Oxidase Inhibitor Start: 08-02-2019 End: 03-15-2024 Febuxostat (Uloric) 40 mg Tablet Discontinued 20 MG PO Every morning August 01, 2019 11:00pm March 15, 2024 4:37pm take 0.5 tablet by mouth once da larissa Uloric 40 MG 1/2 tablet Orally Once a day Active hydroCHLOROthiazide 12.5 mg / lisinopril 20 mg oral tablet (9 sources) Thiazide Diuretic, Angiotensin Converting Enzyme Inhibitor [...] Active sodium bicarbonate 650 mg oral tablet (18 sources) Start: 04-01-2022 End: 03-15-2024 take 1 tablet by mouth twice daily Sodium Bicarbonate 650 mg Tablet Discontinued 650 MG PO Twice daily March 31, 2022 11:00pm March 15, 2024 4:37pm Problems Active Problems Problem Classification Problem Date Documented Date Episodic/Chronic Acute and chronic tonsillitis (20 sources) Amygdalolith; Translations: [Other chronic diseases of tonsils and adenoids] Onset: 4 03-15-2024 Chronic Acute and unspecified renal failure (1 source) Chronic renal failure; Translations: [Chronic renal failure, stage 4 (severe) ([facility])] Chronic Acute and unspecified renal failure (9 sources) Injury of kidney; Translations: [Acute kidney [...] 3 03-15-2024 Episodic Diabetes mellitus with complications (17 sources) Chronic kidney disease due to type 2 diabetes mellitus; Translations: [Type 2 diabetes mellitus with diabetic chronic kidney disease] Onset: 3 03-04-2023 Chronic Disorders of lipid metabolism (17 sources) Dyslipidemia; Translations: [Hyperlipidemia, unspecified] Onset: 3 06-10-2023 Chronic Esophageal disorders (15 sources) Gastroesophageal reflux disease; Translations: [Gastro-esophageal reflux disease without esophagitis] Onset: 2 06-10-2023 Chronic Essential hypertension (20 sources) Benign essential hypertension; Translations: [Essential (primary) hypertension] Onset: 3 Resolved: 3 03-04-2023 Chronic Fever of unknown origin (9 sources) Fever; Translations: [Fever, unspecified] 05-22-2020 Episodic [...] source) Metabolic acidemia, unspecified Episodic Nutritional deficiencies (9 sources) Vitamin D deficiency; Translations: [Vitamin D deficiency, unspecified] 01-20-2019 Chronic Other circulatory disease (7 sources) Acquired arteriovenous fistula aneurysm; Translations: [Arteriovenous fistula, acquired] Chronic Other circulatory disease (1 source) Ecchymosis; Translations: [Hemorrhage, not elsewhere classified] 06-20-2022 Episodic Other circulatory disease (5 sources) Hemorrhage, not elsewhere classified; Translations: [Postoperative ecchymosis] 06-20-2022 Episodic Other connective tissue disease (6 sources) Pain in left arm; Translations: [Pain [...] 4 Episodic Other inflammatory condition of skin (9 sources) Pruritus of skin; Translations: [Pruritus, unspecified] 08-04-2019 Episodic Other non-traumatic joint disorders (15 sources) Polyarthropathy; Translations: [Polyarthritis, unspecified] Onset: 3 06-10-2023 Chronic Other nutritional; endocrine; and metabolic disorders (20 [...] ovary] Onset: 2 Episodic Residual codes; unclassified (15 sources) Obstructive sleep apnea syndrome; Translations: [Obstructive sleep apnea (adult) (pediatric)] Onset: 3 03-04-2023 Chronic Septicemia (except in labor) (10 sources) Sepsis; Translations: [Sepsis due to urinary tract infection] 08-03-2019 Episodic Unclassified (2 sources) Kidney Follow-up; Translations: [Kidney Follow-up] Onset: 4 Past or Other Problems Problem Classification Problem Date Documented Da te Episodic/Chronic Abdominal pain (2 sources) Pelvic and perineal pain; Translations: [Pelvic and perineal pain] Onset: 07-07-2024 Episodic Diabetes mellitus without complication (17 sources) Impaired fasting glycemia; Translations: [Impaired fasting glucose] Onset: 03-04-2023 Resolved: 03-13-2023 03-13-2023 Episodic Fluid and electrolyte disorders (3 sources) Acidosis; Translations: [ACIDOSIS] Onset: 12-06-2021 Resolved: 05-02-2022 Episodic Genitourinary symptoms and ill-defined conditions (13 sources) Dysuria; Translations: [Dysuria] Onset: 03-15-2024 01-19-2019 Episodic Other aftercare (17 sources) Transplant follow-up; Translations: [Other shelter (current) drug therapy] Onset: 10-23-2022 06-10-2023 Episodic Other connective tissue disease (17 sources) Fibromyalgia; Translations: [Fibromyalgia] Onset: 03-04-2023 03-04-2023 Episodic Other non-traumatic joint disorders (1 source) Pain in unspecified joint; Translations: [Pain in unspecified joint] Onset: 11-06-2023 Episodic Otitis media and related conditions (1 source) Otitis media, unspecified, bilateral Onset: 04-30-2022 Resolved: 04-30-2022 Episodic Urinary tract infections (20 sources) Acute cystitis; Translations: [Urinary tract infectious disease] Onset: 04-23-2024 05-15-2020 Episodic Results Test Name Value Interpretation Reference Range Facility Orders Onlyon 10-21-2024 Orders Only [id number] Antonio Puri sarath 1975 F Date Provider Department Center 10/21/2024 1971-[facility] TXP None Family History Problem Relation Age of Onset Fibromyalgia Mother Heart disease Father Hypertension Sister Polycystic kidney disease Sister Hypertension Brother Polycystic kidney disease Brother Family Status - Relation Status Age at Mother Father Sister Brother Normal [facility] ALL URINALYSISon 10-14-2024 BILIRUBIN URINE Negative NEGATIVE [facility] BLOOD URINE TRACE-I NEGATIVE [facility] Clarity (U) CLEAR CLEAR [facility] Color (U) LT. YELLOW YELLOW [facility] GLUCOSE URINE UA Negative NEGATIVE mg/dL [facility] Interpretation and review of laboratory results Abnormal [facility] Ketones Ql (U) Negative NEGATIVE mg/dL [facility] Leukocyte esterase Test strip Ql (U) LARGE Abnormal NEGATIVE [facility] NITRITE URINE Positive Abnormal NEGATIVE [facility] pH (U) 7.5 [pH] 5.0 - 9.0 [facility] PROTEIN URINE Negative NEG/TRACE mg/dL [facility] SPECIFIC GRAVITY URINE 1.015 1.005 - 1.025 [facility] UROBILINOGEN URINE 0.2 EU/dL 0.2 - 1.0 EU/dL [facility] Urine Cultureon 10-14-2024 Bacteria identified Cx Nom (U) ORGANISM: Escherichia coli (MDRO) (O:ESCCOLMDRO) [place] Count >100,000 Aerobic CODI Charge (NMIC56) - SUSCEPTIBILITY ORGANISM: O:ESCCOLMDRO ANTIBIOTIC INTERPRETATION CODI Amikacin S <16 Amoxacillin/K Clavulanate I 1616/8 Ampicillin R >16 Ampicillin/Sulbactam R >16 Aztreonam S <4 Cefazolin S 4 Cefepime S <2 Ceftazidime S <1 Ceftazidime/Avibactam S <4 Ceftolozane/Tazobactam S <2 Ceftriaxone S <1 Cefuroxime S <4 Ciprofloxacin R >2 Ertapenem S <0.5 Gentamicin S <2 Levofloxacin R >4 Meropenem S <1 Meropenem/Vaborbactam S <2 Nitrofurantoin S <32 Piperacillin/Tazobactam S <8 Tetracycline R >8 Tigecycline S <2 Tobramycin S <2 Trimethoprim/Sulfamethox azole R >2 S = SUSCEPTIBLE [...] RESISTANT TO ALL B-LACTAM DRUGS. PERFORMED BY: [place] [address] PATHOLOGIST [employer] OFFICER DOM MARIEE M.D. Normal [facility] Comment on above: Performed By: #### C UU #### [address] ALL MAGNESIUMon 10-02-2024 Magnesium [Mass/Vol] 1.8 mg/dL 1.8 - 2 .4 mg/dL [facility] ALL PHOSPHOROUSon 10-02-2024 Phosphate [Mass/Vol] 3.9 mg/dL 2.6 - 4 .7 mg/dL [facility] ALL URIC ACIDon 10-02-2024 Urate [Mass/Vol] 4.2 mg/dL 2.6 - 6.0 mg/dL [facility] CMP (CMP) (FOR REMOTE FH C USE)on 10-02-2024 Albumin [Mass/Vol] 3.3 g/dL Low 3.4 - 5.0 g/dL [facility] ALBUMIN GLOBULIN RATIO 0.8 NO [facility] ALP [Catalytic activity/Vol] 84 U/L 46 - 116 U/L [facility] ALT [Catalytic activity/Vol] 13 U/L Low 14 - 59 U/L [facility] Anion gap [Moles/Vol] 14.6 mmol/L NO [facility] AST [Catalytic activity/Vol] 11 U/L Low 15 - 37 U/L [facility] Bilirubin [Mass/Vol] 0.3 mg/dL 0.2 - 1 .0 mg/dL [facility] Calcium [Mass/Vol] 9.3 mg/dL 8.5 - 10. 1 mg/dL [facility] Chloride [Moles/Vol] 105 mmol/L 98 - 10 7 mmol/L [facility] CO2 [Moles/Vol] 25 mmol/L 21.0 - 32.0 mmol/L [facility] Creatinine [Mass/Vol] 1.37 mg/dL High 0.55 - 1.02 mg/dL [facility] GFR/1.73 sq M.predicted CKD-EPI (S/P/Bld) [Vol rate/Area] 50 Low >=60 mL/min/1.73m 2 [facility] Globulin (S) [Mass/Vol] 4.2 g/dL [facility] Glucose [Mass/Vol] 102 mg/dL 74 - 106 mg/dL [facility] Interpretation and review of laboratory results Abnormal [facility] Potassium [Moles/Vol] 3.6 mmol/L 3.5 - 5.1 mmol/L [facility] Protein [Mass/Vol] 7.5 g/dL 6.4 - 8.2 g/dL [facility] Sodium [Moles/Vol] 141 mmol/L 136 - 145 mmol/L [facility] TBH EGFR-NON AF [place] 41 Low >=60 mL/min/1.73m 2 [facility] Urea nitrogen [Mass/Vol] 17 mg/dL 7.0 - 18.0 mg/dL [facility] Urea nitrogen/Creatinine [Mass ratio] 12.4 mg/mg [facility] METRO BILIRUBIN, DIRECTon Bilirubin.indirect [Mass/Vol] 0.1 mg/dL 0.0 - 0.2 mg/dL [facility] No Panel Informationon 10-02 [facility] ALL CBC WITH AUTO DIFFon BASOPHILS ABSOLUTE AUTO 0 N [facility] Basophils/100 WBC (Bld) 0.3 % 0.2 - 2.0 % [facility] Eosinophils/100 WBC (Bld) 2.8 % 0.9 - 7.0 % [facility] Erythrocyte distribution width (RBC) [Ratio] 14.5 % 11.0 - 15.0 % [facility] Hematocrit (Bld) [Volume fraction] 34.4 % Low 36.0 - 48.0 % [facility] Hemoglobin (Bld) [Mass/Vol] 10.9 g/dL Low 12.0 - 16.0 g/dL [facility] IMMATURE GRANULOCYTES ABS AUTO 0.03 [facility] Immature granulocytes/100 WBC (Bld) 0.4 % 0.0 - 0.5 % [facility] Interpretation and review of laboratory results Abnormal [facility] LYMPHOCYTES ABSOLUTE AUTO 1.2 [facility] Lymphocytes/100 WBC (Bld) 15.4 % Low 20.5 - 60.0 % [facility] MCH (RBC) [Entitic mass] 27.5 pg 26.7 - 34.0 pg [facility] MCHC (RBC) [Mass/Vol] 31.7 g/dL 29.9 - 35.2 g/dL [facility] MCV (RBC) [Entitic vol] 86.9 fL 81.0 - 99.0 fL [facility] MONOCYTES ABSOLUTE AUTO 0.5 N [facility] Monocytes/100 WBC (Bld) 6.2 % 1.7 - 12.0 % [facility] NEUTROPHILS ABSOLUTE AUTO 5.7 [facility] Neutrophils/100 WBC (Bld) 74.9 % 43.0 - 75.0 % [facility] Platelet mean volume (Bld) [Entitic vol] 8.5 fL Low 9.5 - 13.5 fL [facility] TBH EO # 0.2 [facility] PLT 337 [facility] RBC 3.96 Low [facility] WBC 7.6 [facility] ALL LIPID PROFILE (FASTING)o n 08-31-2024 CHOL HDL RATIO 3.6 [facility] Comment on above: 3.3 - 4.4 LOW RISK 4.4 - 7.1 AVERAGE RISK 7.1 - 11.0 MODERATE RISK >11.0 HIGH RISK Cholesterol [Mass/Vol] 175 mg/dL NINF - 200 mg/dL [facility] Cholesterol in HDL [Mass/Vol] 49 mg/dL 40 - 60 mg/dL [facility] Comment on above: > or =60 mg/dl - LOW CARDIOVASCULAR RISK <40 mg/dl - HIGH CARDIOVASCULAR RISK Magnesium [Mass/Vol] 99.6 mg/dL [facility] Comment on above: <100 mg/dl OPTIMAL 100-129 mg/dl NEAR OR ABOVE OPTIMAL 130-159 mg/dl BORDERLINE HIGH 160-189 mg/dl HIGH >190 mg/dl VERY HIGH Magnesium [Mass/Vol] 26.4 mg/dL [facility] Triglyceride [Mass/Vol] 132 mg/dL NINF - 150 mg/dL [facility] ALL MAGNESIUMon 08-31-2024 Magnesium [Mass/Vol] 1.9 mg/dL 1.8 - 2 .4 mg/dL [facility] ALL PHOSPHOROUSon 08-31-2024 Phosphate [Mass/Vol] 3.7 mg/dL 2.6 - 4 .7 mg/dL [facility] ALL URIC ACIDon 08-31-2024 Urate [Mass/Vol] 4 mg/dL 2.6 - 6.0 mg/dL [facility] CMP (CMP) (FOR REMOTE FH C USE)on 08-31-2024 Albumin [Mass/Vol] 3.4 g/dL 3.4 - 5.0 g/dL [facility] ALBUMIN GLOBULIN RATIO 0.8 NO [facility] ALP [Catalytic activity/Vol] 86 U/L 46 - 116 U/L [facility] ALT [Catalytic activity/Vol] 19 U/L 14 - 59 U/L [facility] Anion gap [Moles/Vol] 17.2 mmol/L NO [facility] AST [Catalytic activity/Vol] 11 U/L Low 15 - 37 U/L [facility] Bilirubin [Mass/Vol] 0.4 mg/dL 0.2 - 1 .0 mg/dL [facility] Calcium [Mass/Vol] 9.3 mg/dL 8.5 - 10. 1 mg/dL [facility] Chloride [Moles/Vol] 104 mmol/L 98 - 10 7 mmol/L [facility] CO2 [Moles/Vol] 24.6 mmol/L 21.0 - 32.0 mmol/L [facility] Creatinine [Mass/Vol] 1.34 mg/dL High 0.55 - 1.02 mg/dL [facility] GFR/1.73 sq M.predicted CKD-EPI (S/P/Bld) [Vol rate/Area] 51 Low >=60 mL/min/1.73m 2 [facility] Globulin (S) [Mass/Vol] 4.2 g/dL N [facility] Glucose [Mass/Vol] 98 mg/dL 74 - 106 mg/dL [facility] Interpretation and review of laboratory results Abnormal [facility] Potassium [Moles/Vol] 3.8 mmol/L 3.5 - 5.1 mmol/L [facility] Protein [Mass/Vol] 7.6 g/dL 6.4 - 8.2 g/dL [facility] Sodium [Moles/Vol] 142 mmol/L 136 - 145 mmol/L [facility] TBH EGFR-NON AF [place] 42 Low >=60 mL/min/1.73m 2 [facility] Urea nitrogen [Mass/Vol] 16 mg/dL 7.0 - 18.0 mg/dL [facility] Urea nitrogen/Creatinine [Mass ratio] 11.9 mg/mg [facility] METRO BILIRUBIN, DIRECTon Bilirubin.indirect [Mass/Vol] 0.1 mg/dL 0.0 - 0.2 mg/dL [facility] MLR HEMOGLOBIN A1Con 024 Glucose [Mass/Vol] 103 mg/dL [facility] HbA1c (Bld) [Mass fraction] 5.2 % 4.5 - 6.2 % [facility] Comment on above: ADA RECOMMENDED LIMI T 4.0 - 6.0 ADA THERAPEUTIC TARGET < 7.0 ACTION SUGGESTED > 7.0 [facility] No [facility] [place] screening mammo BI w/CADo n 08-25-2024 MM screening mammo BI w/CAD [facility] [place] [address] Mammography Report Signed Patient: Mandeep Puri MR#: [id number] 15 : 1975 Acct:[id number] Age/Sex: 48 / F ADM Date: 08/25/24 Loc: [place] Room: Type: [facility] Attending Dr: Blake Hinojosa DO Copies [...] Messina Jr., D.OSon08/25/2024 3:24 PM Dictation Location: [facility] Transcribed By: SALMA 08/25/24 1524 Dictated By: Evan Messina Jr, DO 08/25/24 1523 Signed By: 08/25/24 1524 Normal [facility] Mammography reportOrdered By : Evan Messina on 08-25-2024 Diagnostic imaging study [facility] [place] [address] Mammography Report Signed Patient: Mandeep Puri MR#: [id number] : 1975 Acct:[id number] Age/Sex: 48 / F ADM Date: 4 Loc: [place] Room: Type: [facility] Attending Dr: Blake Hinojosa DO Copies [...] mammogram. Impression dictated by: Evan Messina Jr., DIgor08/25/2024 3:24 PM Dictation Location: [facility] Transcribed By: [facility] 08/25/24 152 Dictated By: Evan Messina Jr DO 08/25/24 152 Signed By: 08/25/24 152 [facility] [place] 125on 08-03-2024 CANCER ANTIGEN 125 12.9 0.0 - 38.1 [facility] Comment on above: [facility] El ectrochemiluminescence Immunoassay (ECLIA) Values obtained with different assay methods or kits cannot be used interchangeably. Results cannot be interpreted as absolute evidence of the presence or absence of malignant disease. Performed at: [facility] [id number] [employer] Table: Gabriel Whitman PhD, Phone: [phone] [facility] 24 hour urine albumin/total protein ratio by electrophoresisOrdered By: Jesus Ayala on 08-02-2024 Albumin Elph (24H U) [Mass fraction] Albumin/Protein.total in 24 hour Urine by Electrophoresis . [facility] 24 hour urine gamma globulin /total protein ratio by electrophoresisOrdered By: Jesus Ayala on 08-02-2024 Gamma globulin Elph (24H U) [Mass fraction] Gamma globulin/Protein.total in 24 hour Urine by Electrophoresis . [facility] 24 hour urine protein monocl onal/total protein by electrophoresisOrdered By: Jesus Ayala on 08-02-2024 Protein.monoclonal Elph (24H U) [Mass fraction] Protein.monoclonal/Prote in.total in 24 hour Urine by Electrophoresis Not Observed [facility] Alanine aminotransferase [En zymatic activity/volume] in Serum or PlasmaOrdered By: Jesus Ayala on 08-02-2024 ALT [Catalytic activity/Vol] 11 U/L Normal 7-52 [facility] Comment on above: Performed By: #### U PE RAND, CAMILLA,URINE, ALDOLASE, SPE, CAMILLA SERUM #### [facility] , #### ADDONUAPLUS, T4F, ESR, CMP, CK, CBC, CRP, TSH3 #### [facility] [address] ALT [Catalytic activity/Vol] Alanine aminotransferase [Enzymatic activity/volume] in Serum or Plasma [facility] Albumin [Mass/volume] in Ser um or Plasma by Bromocresol green (BCG) dye binding methoOrdered By: Jesus Ayala on 08-02-2024 Albumin BCG dye [Mass/Vol] 4.3 g/dL 3.5-5.7 [facility] Albumin BCG dye [Mass/Vol] Albumin [Mass/volume] in Serum or Plasma by Bromocresol green (BCG) dye binding metho 3.5-5.7 [facility] Aldolaseon 08-02-2024 Aldolase 3.5 U/L Normal 3.3-10.3 [facility] Comment on above: Result Comment: Perf ormed at: - [facility] [address] [id number] [employer] Table: Gabriel Whitman PhD, Phone: [phone] PERFORMED BY: [place] [address] PATHOLOGIST [employer] OFFICER ANAHY MCKEE M.D. Performed By: #### U PE RAND, CAMILLA,URINE, ALDOLASE, SPE, CAMILLA SERUM ####[facility] ,#### ADDONUAPLUS, T4F, ESR, CMP, CK, CBC, CRP, TSH3 ####[facility] [place] [address] Alkaline phosphatase [Enzyma tic activity/volume] in Serum or PlasmaOrdered By: Jesus Ayala on 08-02-2024 ALP [Catalytic activity/Vol] 87 U/L Normal 34-104 [facility] Comment on above: Performed By: #### U PE RAND, CAMILLA,URINE, ALDOLASE, SPE, CAMILLA SERUM #### [facility] , #### ADDONUAPLUS, T4F, ESR, CMP, CK, CBC, CRP, TSH3 #### [facility] [address] ALP [Catalytic activity/Vol] Alkaline phosphatase [Enzymatic activity/volume] in Serum or Plasma 34-104 [facility] Appearance of UrineOrdered B y: Jesus Ayala on 08-02-2024 Appearance (U) Urine appearance Clear [facility] Aspartate aminotransferase [ Enzymatic activity/volume] in Serum or PlasmaOrdered By: Jesus Ayala on 08-02-2024 AST [Catalytic activity/Vol] 13 U/L Normal [facility] Comment on above: Performed By: #### U PE RAND, CAMILLA,URINE, ALDOLASE, SPE, CAMILLA SERUM #### [facility] , #### ADDONUAPLUS, T4F, ESR, CMP, CK, CBC, CRP, TSH3 #### [facility] [address] [place] [address] AST [Catalytic activity/Vol] Aspartate aminotransferase [Enzymatic activity/volume] in Serum or Plasma [facility] Automated basophil %Ordered By: Jesus Ayala on 08-02-2024 Basophils/100 WBC (Bld) 0.6 % Normal . [facility] Comment on above: Performed By: #### U PE RAND, CAMILLA,URINE, ALDOLASE, SPE, CAMILLA SERUM ####[facility] ,#### ADDONUAPLUS, T4F, ESR, CMP, CK, CBC, CRP, TSH3 ####[facility] [id number] [place] [address] Automated basophil countOrde red By: Jesus Ayala on 08-02-2024 Basophils (Bld) [#/Vol] 0.0 10*3/uL Normal 0.0-0.2 [facility] Comment on above: Performed By: #### U PE RAND, CAMILLA,URINE, ALDOLASE, SPE, CAMILLA SERUM ####[facility] ,#### ADDONUAPLUS, T4F, ESR, CMP, CK, CBC, CRP, TSH3 ####[address] Automated blood monocyte cou ntOrdered By: Jesus Jamie on 08-02-2024 Monocytes (Bld) [#/Vol] 0.4 10*3/uL Normal 0.0-0.8 [facility] Comment on above: Performed By: #### U PE RAND, CAMILLA,URINE, ALDOLASE, SPE, CAMILLA SERUM ####[facility] ,#### ADDONUAPLUS, T4F, ESR, CMP, CK, CBC, CRP, TSH3 ####[address] Automated eosinophil %Ordere d By: Jesus Ayala on 08-02-2024 Eosinophils/100 WBC (Bld) 3.0 % Normal . [facility] Comment on above: Performed By: #### U PE RAND, CAMILLA,URINE, ALDOLASE, SPE, CAMILLA SERUM ####[facility] ,#### ADDONUAPLUS, T4F, ESR, CMP, CK, CBC, CRP, TSH3 ####[address] Automated eosinophil countOr dered By: Jesus Ayala on 08-02-2024 Eosinophils (Bld) [#/Vol] 0.2 10*3/uL Normal 0.0-0.45 [facility] Comment on above: Performed By: #### U PE RAND, CAMILLA,URINE, ALDOLASE, SPE, CAMILLA SERUM ####[facility] ,#### ADDONUAPLUS, T4F, ESR, CMP, CK, CBC, CRP, TSH3 ####[address] Automated epithelial cells c ount in urine sediment (number/area)Ordered By: Jesus Ayala on 08-02-2024 Epithelial cells Auto (Urine sed) [#/Area] 5-9 [HPF] High 0-2 [facility] Epithelial cells Auto (Urine sed) [#/Area] Automated epithelial cells count in urine sediment (number/area) High 0-2 [facility] Automated erythrocytes count in urine sediment (number/area)Ordered By: Jesus Ayala on 08-02-2024 RBC Auto (Urine sed) [#/Area] Erythrocytes [#/area] in Urine sediment by Automated count 0-4 [facility] Automated leukocytes count i n urine sediment (number/area)Ordered By: Jesus Ayala on 08-02-2024 WBC Auto (Urine sed) [#/Area] Leukocytes [#/area] in Urine sediment by Automated count 0-4 [facility] Automated monocyte %Ordered By: Jesus Ayala on 08-02-2024 Monocytes/100 WBC (Bld) 4.5 % Normal . [facility] Comment on above: Performed By: #### U PE RAND, CAMILLA,URINE, ALDOLASE, SPE, CAMILLA SERUM ####[facility] ,#### ADDONUAPLUS, T4F, ESR, CMP, CK, CBC, CRP, TSH3 ####[facility] [id number] Automated neutrophil %Ordere d By: Jesus Ayala on 08-02-2024 Neutrophils/100 WBC (Bld) 76.9 % Normal . [facility] Comment on above: Performed By: #### U PE RAND, CAMILLA,URINE, ALDOLASE, SPE, CAMILLA SERUM ####[facility] ,#### ADDONUAPLUS, T4F, ESR, CMP, CK, CBC, CRP, TSH3 ####[facility] [id number] [place] [id number] [facility] Bacteria [Presence] in Urine by AutomatedOrdered By: Jesus Ayala on 08-02-2024 Bacteria Auto Ql (U) None seen [HPF] None Seen [facility] Basophils Auto (Bld) [#/Vol] Ordered By: Jesus Ayala on 08-02-2024 Basophils (Bld) [#/Vol] Automated basophil count 0.0-0.2 [facility] Basophils/100 WBC Auto (Bld) Ordered By: Jesus Ayala on 08-02-2024 Basophils/100 WBC (Bld) Automated basophil % . [facility] Bilirubin Test strip Ql (U)O rdered By: Jesus Ayala on 08-02-2024 Bilirubin Ql (U) Negative Negative [facility] Bilirubin Ql (U) Bilirubin.total [Presence] in Urine by Test strip Negative [facility] Bilirubin.total [Mass/volume ] in Serum or PlasmaOrdered By: Jesus Ayala on 08-02-2024 Bilirubin [Mass/Vol] 0.3 mg/dL Normal 0.3-1.0 [facility] Comment on above: Performed By: #### U PE RAND, CAMILLA,URINE, ALDOLASE, SPE, CAMILLA SERUM #### [facility] , #### ADDONUAPLUS, T4F, ESR, CMP, CK, CBC, CRP, TSH3 #### [facility] [address] Bilirubin [Mass/Vol] Bilirubin.total [Mass/volume] in Serum or Plasma 0.3-1.0 [facility] C reactive protein [Mass/vol ume] in Serum or PlasmaOrdered By: Jesus Ayala on 08-02-2024 CRP [Mass/Vol] 1.7 mg/dL High 0.0-0.5 [facility] CRP [Mass/Vol] C reactive protein [Mass/volume] in Serum or Plasma High 0.0-0.5 [facility] C-Reactive Proteinon 024 C-Reactive Protein 1.7 mg/dL High 0.0-0.5 [facility] Comment on above: Performed By: #### U PE RAND, CAMILLA,URINE, ALDOLASE, SPE, CAMILLA SERUM #### [facility] , #### ADDONUAPLUS, T4F, ESR, CMP, CK, CBC, CRP, TSH3 #### [facility] [address] CARCINOEMBRYONIC ANTIGENon 1 [facility] CEA ser/plasOrdered By: Gustavo Hinojosa on 08-02-2024 Carcinoembryonic Ag [Mass/Vol] Serum or plasma carcinoembryonic antigen measurement (mass/volume) 0.0-3.0 [facility] Comment on above: Serial tumor marker results determined by assays using different manufacturers or methods may not be comparable.[facility] shucker and method:RUSSELL UNICEL DXI, 2 SITE IMMUNOENZYMATIC SANDWICH ASSAY. Calcium [Mass/volume] in Ser um or PlasmaOrdered By: Jesus Ayala on 08-02-2024 Calcium [Mass/Vol] 9.8 mg/dL Normal 8.6-10.3 [facility] Comment on above: Performed By: #### U PE RAND, CAMILLA,URINE, ALDOLASE, SPE, CAMILLA SERUM #### [facility] , #### ADDONUAPLUS, T4F, ESR, CMP, CK, CBC, CRP, TSH3 #### [facility] [address] Calcium [Mass/Vol] Calcium [Mass/volume ] in Serum or Plasma 8.6-10.3 [facility] Cancer Antigen 125on 024 Cancer Antigen 125 12.9 Normal 0.0-38.1 [facility] Comment on above: Result Comment: [facility] Electrochemiluminescence Immunoassay (ECLIA) Values obtained with different assay methods or kits cannot be used interchangeably. Results cannot be interpreted as absolute evidence of the presence or absence of malignant disease. Performed at: [facility] [address] [id number] [employer] Table: Gabriel Whitman PhD, Phone: [phone] PERFORMED BY: [facility] [address] [place] [address] PATHOLOGIST [employer] OFFICER ANAHY MCKEE M.D. Performed By: #### C A125 ####[facility] ,#### CEA ####[facility] [id number] Carbon dioxide, total [Moles /volume] in Serum or PlasmaOrdered By: Jesus Ayala on 08-02-2024 CO2 [Moles/Vol] 24.6 mmol/L Normal 21.0-31.0 [facility] Comment on above: Performed By: #### U PE RAND, CAMILLA,URINE, ALDOLASE, SPE, CAMILLA SERUM #### [facility] , #### ADDONUAPLUS, T4F, ESR, CMP, CK, CBC, CRP, TSH3 #### [facility] [address] CO2 [Moles/Vol] Carbon dioxide, tota l [Moles/volume] in Serum or Plasma 21.0-31.0 [facility] Chloride [Moles/volume] in S aislinn or PlasmaOrdered By: Jesus Ayala on 08-02-2024 Chloride [Moles/Vol] 105 mmol/L Normal [address] [place] [address] Comment on above: Performed By: #### U PE RAND, CAMILLA,URINE, ALDOLASE, SPE, CAMILLA SERUM #### [facility] , #### ADDONUAPLUS, T4F, ESR, CMP, CK, CBC, CRP, TSH3 #### [facility] [address] Chloride [Moles/Vol] Chloride [Moles/vol ume] in Serum or Plasma [address] Color Auto (U)Ordered By: Chan Ayala on 08-02-2024 Color (U) Color of Urine by Auto Yellow [facility] Color of Urine by AutoOrdere d By: Jesus Ayala on 08-02-2024 Color (U) Light-yellow Normal [facility] Comment on above: Order Comment: Name Collection Type:: Clean-Voided Midstream Performed By: #### U PE RAND, CAMILLA,URINE, ALDOLASE, SPE, CAMILLA SERUM #### [facility] , #### ADDONUAPLUS, T4F, ESR, CMP, CK, CBC, CRP, TSH3 #### [facility] [address] [place] [id number] [facility] Complete Blood Count Auto Di ffon 08-02-2024 Mean Corpuscular HGB Conc 33.5 g/dL Normal 32.0-35.0 [facility] Comment on above: Performed By: #### U PE RAND, CAMILLA,URINE, ALDOLASE, SPE, CAMILLA SERUM ####[facility] ,#### ADDONUAPLUS, T4F, ESR, CMP, CK, CBC, CRP, TSH3 ####[facility] NRBC% 0.1 /100{WBC} Normal 0-0.5 [facility] Comment on above: Performed By: #### U PE RAND, CAMILLA,URINE, ALDOLASE, SPE, CAMILLA SERUM ####[facility] ,#### ADDONUAPLUS, T4F, ESR, CMP, CK, CBC, CRP, TSH3 ####[address] Comprehensive Metabolic Pane jonathan 08-02-2024 Albumin [Mass/Vol] 4.3 g/dL Normal 3.5-5.7 [facility] Comment on above: Performed By: #### U PE RAND, CAMILLA,URINE, ALDOLASE, SPE, CAMILLA SERUM #### [facility] , #### ADDONUAPLUS, T4F, ESR, CMP, CK, CBC, CRP, TSH3 #### [address] GFR/1.73 sq M.predicted MDRD (S/P/Bld) [Vol rate/Area] mL/min/{1.73_m2} Normal [facility] Comment on above: Performed By: #### U PE RAND, CAMILLA,URINE, ALDOLASE, SPE, CAMILLA SERUM #### [facility] , #### ADDONUAPLUS, T4F, ESR, CMP, CK, CBC, CRP, TSH3 #### [address] Creatine kinase [Enzymatic a ctivity/volume] in Serum or PlasmaOrdered By: Jesus Ayala on 08-02-2024 CK [Catalytic activity/Vol] 39 U/L Normal [facility] Comment on above: Result Comment: PERF ORMED BY: [place] [address] PATHOLOGIST [employer] OFFICER ANAHY MCKEE M.D. Performed By: #### U PE RAND, CAMILLA,URINE, ALDOLASE, SPE, CAMILLA SERUM #### [facility] , #### ADDONUAPLUS, T4F, ESR, CMP, CK, CBC, CRP, TSH3 #### [facility] [address] [place] [address] CK [Catalytic activity/Vol] Creatine kinase [Enzymatic activity/volume] in Serum or Plasma [facility] Creatinine [Mass/volume] in Serum or PlasmaOrdered By: Jesus Ayala on 08-02-2024 Creatinine [Mass/Vol] 1.10 mg/dL Normal 0.60-1.20 [facility] Comment on above: Performed By: #### U PE RAND, CAMILLA,URINE, ALDOLASE, SPE, CAMILLA SERUM #### [facility] , #### ADDONUAPLUS, T4F, ESR, CMP, CK, CBC, CRP, TSH3 #### [facility] [address] [place] [address] Creatinine [Mass/Vol] Creatinine [Mass/v olume] in Serum or Plasma 0.60-1.20 [facility] Dipstick and Microscopicon 1 Bacteria,Urine None Seen Normal None Seen [facility] Comment on above: Order Comment: Name Collection Type:: Clean-Voided Midstream Performed By: #### U PE RAND, CAMILLA,URINE, ALDOLASE, SPE, CAMILLA SERUM #### [facility] , #### ADDONUAPLUS, T4F, ESR, CMP, CK, CBC, CRP, TSH3 #### [facility] [address] [place] [address] Bilirubin,Urine Negative Normal Negative [facility] Comment on above: Order Comment: Name Collection Type:: Clean-Voided Midstream Performed By: #### U PE RAND, CAMILLA,URINE, ALDOLASE, SPE, CAMILLA SERUM #### [facility] , #### ADDONUAPLUS, T4F, ESR, CMP, CK, CBC, CRP, TSH3 #### [address] Glucose Ql (U) 50 mg/dL High Normal [facility] Comment on above: Order Comment: Name Collection Type:: Clean-Voided Midstream Performed By: #### U PE RAND, CAMILLA,URINE, ALDOLASE, SPE, CAMILLA SERUM #### [facility] , #### ADDONUAPLUS, T4F, ESR, CMP, CK, CBC, CRP, TSH3 #### [address] Hyaline Casts,Urine 0-8 Normal 0-8 [facility] Comment on above: Order Comment: Name Collection Type:: Clean-Voided Midstream Result Comment: PERF ORMED BY: [place] [address] PATHOLOGIST [employer] OFFICER ANAHY MCKEE M.D. Performed By: #### U PE RAND, CAMILLA,URINE, ALDOLASE, SPE, CAMILLA SERUM #### [facility] , #### ADDONUAPLUS, T4F, ESR, CMP, CK, CBC, CRP, TSH3 #### [address] Nitrite,Urine Negative Normal Negative [facility] Comment on above: Order Comment: Name Collection Type:: Clean-Voided Midstream Performed By: #### U PE RAND, CAMILLA,URINE, ALDOLASE, SPE, CAMILLA SERUM #### [facility] , #### ADDONUAPLUS, T4F, ESR, CMP, CK, CBC, CRP, TSH3 #### [address] Occult Blood,Urine Negative Normal Negative [facility] Comment on above: Order Comment: Name Collection Type:: Clean-Voided Midstream Performed By: #### U PE RAND, CAMILLA,URINE, ALDOLASE, SPE, CAMILLA SERUM #### [facility] , #### ADDONUAPLUS, T4F, ESR, CMP, CK, CBC, CRP, TSH3 #### [address] Protein,Urine Negative Normal Negative [facility] Comment on above: Order Comment: Name Collection Type:: Clean-Voided Midstream Performed By: #### U PE RAND, CAMILLA,URINE, ALDOLASE, SPE, CAMILLA SERUM #### [facility] , #### ADDONUAPLUS, T4F, ESR, CMP, CK, CBC, CRP, TSH3 #### [address] RBC,Urine 3-4 Normal 0-4 [facility] Comment on above: Order Comment: Name Collection Type:: Clean-Voided Midstream Performed By: #### U PE RAND, CAMILLA,URINE, ALDOLASE, SPE, CAMILLA SERUM #### [facility] , #### ADDONUAPLUS, T4F, ESR, CMP, CK, CBC, CRP, TSH3 #### [address] Specificy [place],Urine 1.013 Normal 1.001-1.030 [facility] Comment on above: Order Comment: Name Collection Type:: Clean-Voided Midstream Performed By: #### U PE RAND, CAMILLA,URINE, ALDOLASE, SPE, CAMILLA SERUM #### [facility] , #### ADDONUAPLUS, T4F, ESR, CMP, CK, CBC, CRP, TSH3 #### [facility] [address] [place] [address] Squamous Epithelial Cell,Urine 5-9 High 0-2 [facility] Comment on above: Order Comment: Name Collection Type:: Clean-Voided Midstream Performed By: #### U PE RAND, CAMILLA,URINE, ALDOLASE, SPE, CAMILLA SERUM #### [facility] , #### ADDONUAPLUS, T4F, ESR, CMP, CK, CBC, CRP, TSH3 #### [facility] [address] [place] [address] Urobilinogen,Urine Normal Normal Normal [facility] Comment on above: Order Comment: Name Collection Type:: Clean-Voided Midstream Performed By: #### U PE RAND, CAMILLA,URINE, ALDOLASE, SPE, CAMILLA SERUM #### [facility] , #### ADDONUAPLUS, T4F, ESR, CMP, CK, CBC, CRP, TSH3 #### [address] WBC,Urine 3-4 Normal 0-4 [facility] Comment on above: Order Comment: Name Collection Type:: Clean-Voided Midstream Performed By: #### U PE RAND, CAMILLA,URINE, ALDOLASE, SPE, CAMILLA SERUM #### [facility] , #### ADDONUAPLUS, T4F, ESR, CMP, CK, CBC, CRP, TSH3 #### [address] Eosinophils Auto (Bld) [#/Vo l]Ordered By: Jesus Ayala on 08-02-2024 Eosinophils (Bld) [#/Vol] Automated eosinophil count 0.0-0.45 [facility] Eosinophils/100 WBC Auto (Bl d)Ordered By: Jesus Ayala on 08-02-2024 Eosinophils/100 WBC (Bld) Automated eosinophil % . [facility] Erythrocyte Sedimentation Ra mathieu 08-02-2024 ESR (Bld) [Velocity] 73 mm/h High 0-19 [facility] Comment on above: Result Comment: PERF ORMED BY: [place] [address] PATHOLOGIST [employer] OFFICER ANAHY MCKEE M.D. Performed By: #### U PE RAND, CAMILLA,URINE, ALDOLASE, SPE, CAMILLA SERUM ####[facility] ,#### ADDONUAPLUS, T4F, ESR, CMP, CK, CBC, CRP, TSH3 ####[place] [id number] [address] Erythrocyte distribution wid th Auto (RBC) [Ratio]Ordered By: Jesus Gruberrow on 08-02-2024 Erythrocyte distribution width (RBC) [Ratio] Erythrocyte distribution width [Ratio] by Automated count High 11.9-15.3 [facility] Erythrocyte distribution wid th [Ratio] by Automated countOrdered By: Jesus Gruberrow on 08-02-2024 Erythrocyte distribution width (RBC) [Ratio] 15.7 % High 11.9-15.3 [facility] Comment on above: Performed By: #### U PE RAND, CAMILLA,URINE, ALDOLASE, SPE, CAMILLA SERUM ####[facility] ,#### ADDONUAPLUS, T4F, ESR, CMP, CK, CBC, CRP, TSH3 ####[place] [id number] [address] Erythrocyte sedimentation ra te by Photometric methodOrdered By: Jesus Gruberrow on 08-02-2024 ESR Photometric method (Bld) [Velocity] 73 mm/hr High 0-19 [facility] ESR Photometric method (Bld) [Velocity] Erythrocyte sedimentation rate by Photometric method High 0-19 [facility] Erythrocytes [#/area] in Uri ne sediment by Automated countOrdered By: Jesus Jamie on 08-02-2024 RBC Auto (Urine sed) [#/Area] 3-4 [HPF] 0-4 [facility] Erythrocytes [#/volume] in B lood by Automated countOrdered By: Jesus Jamie on 08-02-2024 RBC (Bld) [#/Vol] 4.37 10*6/uL Normal 3.60-5.00 [facility] Comment on above: Performed By: #### U PE RAND, CAMILLA,URINE, ALDOLASE, SPE, CAMILLA SERUM ####[facility] ,#### ADDONUAPLUS, T4F, ESR, CMP, CK, CBC, CRP, TSH3 ####[facility] [place] [id number] [facility] Globulin Calc (S) [Mass/Vol] Ordered By: Jesus Ayala on 08-02-2024 Globulin (S) [Mass/Vol] Serum globulin measurement by calculation (mass/volume) [facility] Glucose [Mass/volume] in Ser um or PlasmaOrdered By: Jesus Ayala on 08-02-2024 Glucose [Mass/Vol] 146 mg/dL [facility] 70-100 [facility] Comment on above: ADA recommended refe rence rangeRandom Glucose Reference Range is dependent on time and content of last meal. Glucose of more than 200 mg/dL in a nonstressed, ambulatory subject supports the diagnosis of Diabetes Mellitus. Result Comment: [facility] Glucose Reference Range is dependent on time and content of last meal. Glucose of more than 200 mg/dL in a nonstressed, ambulatory subject supports the diagnosis of Diabetes Mellitus. ADA recommended reference range Performed By: #### U PE RAND, CAMILLA,URINE, ALDOLASE, SPE, CAMILLA SERUM #### [facility] , #### ADDONUAPLUS, T4F, ESR, CMP, CK, CBC, CRP, TSH3 #### [facility] [address] Glucose [Mass/Vol] Glucose [Mass/volume ] in Serum or Plasma [address] Comment on above: ADA recommended refe rence rangeRandom Glucose Reference Range is dependent on time and content of last meal. Glucose of more than 200 mg/dL in a nonstressed, ambulatory subject supports the diagnosis of Diabetes Mellitus. Glucose [Mass/volume] in Uri ne by Test stripOrdered By: Jesus Ayala on 08-02-2024 Glucose Test strip (U) [Mass/Vol] 50 mg/dL [facility] Normal [facility] Glucose Test strip (U) [Mass/Vol] Glucose [Mass/volume] in Urine by Test strip [facility] Hematocrit Auto (Bld) [Volum e fraction]Ordered By: Jesus Ayala on 08-02-2024 Hematocrit (Bld) [Volume fraction] Hematocrit [Volume Fraction] of Blood by Automated count 34.0-46.4 [facility] Hematocrit [Volume Fraction] of Blood by Automated countOrdered By: Jesus Gruberrow on 08-02-2024 Hematocrit (Bld) [Volume fraction] 37.0 % Normal 34.0-46.4 [facility] Comment on above: Performed By: #### U PE RAND, CAMILLA,URINE, ALDOLASE, SPE, CAMILLA SERUM ####[facility] ,#### ADDONUAPLUS, T4F, ESR, CMP, CK, CBC, CRP, TSH3 ####[facility] [id number] Hemoglobin Test strip Ql (U) Ordered By: Jesus Ayala on 08-02-2024 Hemoglobin Ql (U) Negative Negative [facility] Hemoglobin Ql (U) Hemoglobin [Presence ] in Urine by Test strip Negative [facility] Hemoglobin [Mass/volume] in BloodOrdered By: Jesus Ayala on 08-02-2024 Hemoglobin (Bld) [Mass/Vol] 12.4 g/dL Normal 11.8-15.4 [facility] Comment on above: Performed By: #### U PE RAND, CAMILLA,URINE, ALDOLASE, SPE, CAMILLA SERUM ####[facility] ,#### ADDONUAPLUS, T4F, ESR, CMP, CK, CBC, CRP, TSH3 ####[address] Hemoglobin (Bld) [Mass/Vol] Hemoglobin [Mass/volume] in Blood 11.8-15.4 [facility] Immunofixation for UrineOrde red By: Jesus Ayala on 08-02-2024 Interpretation Immunofixation (U) [Interp] Immunofixation for Urine . [facility] Comment on above: No monoclonality det ected.Performed at: [facility] [id number] Director: Gabriel Whitman PhD, Phone: [phone] Immunofixation, (CAMILLA), Urine on 08-02-2024 Immunofixation, (CAMILLA), Urine Comment Normal . [facility] Comment on above: Result Comment: No m onoclonality detected. Performed at: [facility] [id number] [employer] Ping Pong Table: Gabriel Whitman PhD, Phone: [phone] Performed By: #### U PE RAND, CAMILLA,URINE, ALDOLASE, SPE, CAMILLA SERUM ####[facility] ,#### ADDONUAPLUS, T4F, ESR, CMP, CK, CBC, CRP, TSH3 ####[place] [id number] [facility] Immunofixation,Serumon 08-02 Immunofixation, Serum Comment Normal . [facility] Comment on above: Result Comment: No m onoclonality detected. Performed By: #### U PE RAND, CAMILLA,URINE, ALDOLASE, SPE, CAMILLA SERUM ####[facility] ,#### ADDONUAPLUS, T4F, ESR, CMP, CK, CBC, CRP, TSH3 ####[place] [id number] [facility] Immunoglobulin A, Serum 136 mg/dL Normal 87-352 [facility] Comment on above: Performed By: #### U PE RAND, CAMILLA,URINE, ALDOLASE, SPE, CAMILLA SERUM ####[facility] ,#### ADDONUAPLUS, T4F, ESR, CMP, CK, CBC, CRP, TSH3 ####[place] [id number] [facility] Immunoglobulin G 1357 mg/dL Normal [phone] [facility] Comment on above: Performed By: #### U PE RAND, CAMILLA,URINE, ALDOLASE, SPE, CAMILLA SERUM ####[facility] ,#### ADDONUAPLUS, T4F, ESR, CMP, CK, CBC, CRP, TSH3 ####[address] [address] [facility] Immunoglobulin M, Serum 94 mg/dL Normal 26-217 [facility] Comment on above: Result Comment: Perf ormed at: - [facility] [place] [id number] [place], [place] [id number] [employer] P[employer] Pong Table: Gabriel Whitman PhD, Phone: [phone] Performed By: #### U PE RAND, CAMILLA,URINE, ALDOLASE, SPE, CAMILLA SERUM ####[facility] ,#### ADDONUAPLUS, T4F, ESR, CMP, CK, CBC, CRP, TSH3 ####[address] Ketones Test strip Ql (U)Ord ered By: Jesus Ayala on 08-02-2024 Ketones Ql (U) Ketones [Presence] i n Urine by Test strip Negative [facility] Ketones [Presence] in Urine by Test stripOrdered By: Jesus Ayala on 08-02-2024 Ketones Ql (U) Negative Normal Negative [facility] Comment on above: Order Comment: Name Collection Type:: Clean-Voided Midstream Performed By: #### U PE RAND, CAMILLA,URINE, ALDOLASE, SPE, CAMILLA SERUM #### [facility] , #### ADDONUAPLUS, T4F, ESR, CMP, CK, CBC, CRP, TSH3 #### [facility] [address] [place] [address] Laboratory - UrinalysisOrder ed By: Jesus Ayala on 08-02-2024 Hyaline casts LM Ql (Urine sed) 0-8 [LPF] 0-8 [facility] Leukocyte esterase [Presence ] in Urine by Test stripOrdered By: Jesus Ayala on 08-02-2024 Leukocyte esterase Test strip Ql (U) Negative Normal Negative [facility] Comment on above: Order Comment: Name Collection Type:: Clean-Voided Midstream Performed By: #### U PE RAND, CAMILLA,URINE, ALDOLASE, SPE, CAMILLA SERUM #### [facility] , #### ADDONUAPLUS, T4F, ESR, CMP, CK, CBC, CRP, TSH3 #### [address] Leukocyte esterase Test strip Ql (U) Leukocyte esterase [Presence] in Urine by Test strip Negative [facility] Leukocytes [#/area] in Urine sediment by Automated countOrdered By: Jesus Ayala on 08-02-2024 WBC Auto (Urine sed) [#/Area] 3-4 [HPF] 0-4 [facility] Leukocytes [#/volume] correc noah for nucleated erythrocytes in Blood by Automated counOrdered By: Jesus Ayala on 08-02-2024 WBC corrected for nucl RBC Auto (Bld) [#/Vol] 7.8 10*3/uL 3.8-11.6 [facility] WBC corrected for nucl RBC Auto (Bld) [#/Vol] Leukocytes [#/volume] corrected for nucleated erythrocytes in Blood by Automated coun .8-11.6 [facility] Leukocytes [#/volume] in Blo od by Automated countOrdered By: Jesus Gruberrow on 08-02-2024 WBC (Bld) [#/Vol] 7.8 10*3/uL Normal 3.8-11.6 [facility] Comment on above: Performed By: #### U PE RAND, CAMILLA,URINE, ALDOLASE, SPE, CAMILLA SERUM ####[facility] ,#### ADDONUAPLUS, T4F, ESR, CMP, CK, CBC, CRP, TSH3 ####[facility] [id number] [place] [address] [facility] Lymphocytes Auto (Bld) [#/Vo l]Ordered By: Jesushelio Ayala on 08-02-2024 Lymphocytes (Bld) [#/Vol] Lymphocytes [#/volume] in Blood by Automated count .00-.8 [facility] Lymphocytes [#/volume] in Bl ood by Automated countOrdered By: Jesus Jamie on 08-02-2024 Lymphocytes (Bld) [#/Vol] 1.2 10*3/uL Normal 1.00-4.8 [facility] Comment on above: Performed By: #### U PE RAND, CAMILLA,URINE, ALDOLASE, SPE, CAMILLA SERUM ####[facility] ,#### ADDONUAPLUS, T4F, ESR, CMP, CK, CBC, CRP, TSH3 ####[place] [id number] [place] [id number] [facility] Lymphocytes/100 WBC Auto (Bl d)Ordered By: Jesus Ayala on 08-02-2024 Lymphocytes/100 WBC (Bld) Lymphocytes/100 leukocytes in Blood by Automated count . [facility] Lymphocytes/100 leukocytes i n Blood by Automated countOrdered By: Jesus Ayala on 08-02-2024 Lymphocytes/100 WBC (Bld) 15.0 % Normal . [facility] Comment on above: Performed By: #### U PE RAND, CAMILLA,URINE, ALDOLASE, SPE, CAMILLA SERUM ####[facility] ,#### ADDONUAPLUS, T4F, ESR, CMP, CK, CBC, CRP, TSH3 ####[place] [address] [place] [id number] [facility] MCH Auto (RBC) [Entitic mass ]Ordered By: Jesus Ayala on 08-02-2024 MCH (RBC) [Entitic mass] MCH [Entitic mass] by Automated count 24.7-34.3 [facility] MCH [Entitic mass] by Automa noah countOrdered By: Jesus Ayala on 08-02-2024 MCH (RBC) [Entitic mass] 28.3 pg Normal 24.7-34.3 [facility] Comment on above: Performed By: #### U PE RAND, CAMILLA,URINE, ALDOLASE, SPE, CAMILLA SERUM ####[facility] ,#### ADDONUAPLUS, T4F, ESR, CMP, CK, CBC, CRP, TSH3 ####[place] [id number] [facility] MCHC Auto (RBC) [Mass/Vol]Or dered By: Jesus Ayala on 08-02-2024 MCHC (RBC) [Mass/Vol] 33.5 g/dL 32.0-35.0 [facility] MCHC (RBC) [Mass/Vol] MCHC [Mass/volume] by Automated count 32.0-35.0 [facility] MCV Auto (RBC) [Entitic vol] Ordered By: Jesus Ayala on 08-02-2024 MCV (RBC) [Entitic vol] MCV [Entitic vol ume] by Automated count 80-100 [facility] MCV [Entitic volume] by Auto mated countOrdered By: Jesus Ayala on 08-02-2024 MCV (RBC) [Entitic vol] 84.6 fL Normal 80-100 F [facility] Comment on above: Performed By: #### U PE RAND, CAMILLA,URINE, ALDOLASE, SPE, CAMILLA SERUM ####[facility] ,#### ADDONUAPLUS, T4F, ESR, CMP, CK, CBC, CRP, TSH3 ####[facility] [id number] Monocytes Auto (Bld) [#/Vol] Ordered By: Jesus Ayala on 08-02-2024 Monocytes (Bld) [#/Vol] Automated blood monocyte count 0.0-0.8 [facility] Monocytes/100 WBC Auto (Bld) Ordered By: Jesus Ayala on 08-02-2024 Monocytes/100 WBC (Bld) Automated monocyte % . [facility] Neutrophils Auto (Bld) [#/Vo l]Ordered By: Jesus Ayala on 08-02-2024 Neutrophils (Bld) [#/Vol] Neutrophils [#/volume] in Blood by Automated count 1.8-7.7 [facility] Neutrophils [#/volume] in Bl ood by Automated countOrdered By: Jesus Ayala on 08-02-2024 Neutrophils (Bld) [#/Vol] 6.0 10*3/uL Normal 1.8-7.7 [facility] Comment on above: Performed By: #### U PE RAND, CAMILLA,URINE, ALDOLASE, SPE, CAMILLA SERUM ####[facility] ,#### ADDONUAPLUS, T4F, ESR, CMP, CK, CBC, CRP, TSH3 ####[facility] [id number] Neutrophils/100 WBC Auto (Bl d)Ordered By: Jesus Ayala on 08-02-2024 Neutrophils/100 WBC (Bld) Automated neutrophil % . [facility] Nitrite Test strip Ql (U)Ord ered By: Jesus Gruberrow on 08-02-2024 Nitrite Ql (U) Negative Negative [facility] Nitrite Ql (U) Nitrite [Presence] i n Urine by Test strip Negative [facility] No Panel InformationOrdered By: Jesus Ayala on 08-02-2024 Estimated GFR (CKD-EPI) > 60.0 mL/Min [facility] Creatinine Clearance (Chem N/A [facility] Protein Electrophoresis M-Maruy Not observed g/dL Not Observed [facility] Protein Electrophoresis Note Comment . [facility] Comment on above: Protein electrophore sis scan will follow via computer,mail, or barrel lathe operator delivery.Performed at: [employer] [id number] Director: Gabriel Whitman PhD, Phone: [phone] Urine Random Prot Electrophor Note Comment . [facility] Comment on above: Protein electrophore sis scan will follow via computer,mail, or barrel lathe operator delivery. Nucleated erythrocytes [Pres ence] in Blood by Automated countOrdered By: Jesus Ayala on 08-02-2024 Nucleated RBC Auto Ql (Bld) 0.1 /100{WBC} 0-0.5 [facility] Nucleated RBC Auto Ql (Bld) Nucleated erythrocytes [Presence] in Blood by Automated count 0-0.5 [facility] Platelet mean volume Auto (B ld) [Entitic vol]Ordered By: Jesus Ayala on 08-02-2024 Platelet mean volume (Bld) [Entitic vol] Platelet mean volume [Entitic volume] in Blood by Automated count 6.3-10.7 [facility] Platelet mean volume [Entiti c volume] in Blood by Automated countOrdered By: Jesus Aylaa on 08-02-2024 Platelet mean volume (Bld) [Entitic vol] 6.6 fL Normal 6.3-10.7 [facility] Comment on above: Performed By: #### U PE RAND, CAMILLA,URINE, ALDOLASE, SPE, CAMILLA SERUM ####[facility] ,#### ADDONUAPLUS, T4F, ESR, CMP, CK, CBC, CRP, TSH3 ####[facility] Platelets Auto (Bld) [#/Vol] Ordered By: Jesus Ayala on 08-02-2024 Platelets (Bld) [#/Vol] Platelets [#/vol ume] in Blood by Automated count 150-450 [facility] Platelets [#/volume] in Bloo d by Automated countOrdered By: Jesus Ayala on 08-02-2024 Platelets (Bld) [#/Vol] 439 10*3/uL Normal 150-450 [facility] Comment on above: Performed By: #### U PE RAND, CAMILLA,URINE, ALDOLASE, SPE, CAMILLA SERUM ####[facility] ,#### ADDONUAPLUS, T4F, ESR, CMP, CK, CBC, CRP, TSH3 ####[facility] Potassium [Moles/volume] in Serum or PlasmaOrdered By: Jesus Ayala on 08-02-2024 Potassium [Moles/Vol] 3.8 mmol/L Normal 3.5-5.1 [facility] Comment on above: Performed By: #### U PE RAND, CAMILLA,URINE, ALDOLASE, SPE, CAMILLA SERUM #### [facility] , #### ADDONUAPLUS, T4F, ESR, CMP, CK, CBC, CRP, TSH3 #### [facility] [address] Potassium [Moles/Vol] Potassium [Moles/v olume] in Serum or Plasma 3.5-5.1 [facility] Protein Electro, Random Urin yonis 08-02-2024 Albumin, Urine 36.1 % Normal . [facility] Comment on above: Performed By: #### U PE RAND, CAMILLA,URINE, ALDOLASE, SPE, CAMILLA SERUM ####[facility] ,#### ADDONUAPLUS, T4F, ESR, CMP, CK, CBC, CRP, TSH3 ####[address] Gzssa-1-Slnronce, Urine 4.1 % Normal . [facility] Comment on above: Performed By: #### U PE RAND, CAMILLA,URINE, ALDOLASE, SPE, CAMILLA SERUM ####[facility] ,#### ADDONUAPLUS, T4F, ESR, CMP, CK, CBC, CRP, TSH3 ####[address] Qzdra-8-Jqsjbfmj, Urine 18.4 % Normal . [facility] Comment on above: Performed By: #### U PE RAND, CAMILLA,URINE, ALDOLASE, SPE, CAMILLA SERUM ####[facility] ,#### ADDONUAPLUS, T4F, ESR, CMP, CK, CBC, CRP, TSH3 ####[address] Beta Globulin, Urine 24.3 % Normal . [facility] Comment on above: Performed By: #### U PE RAND, CAMILLA,URINE, ALDOLASE, SPE, CAMLILA SERUM ####[facility] ,#### ADDONUAPLUS, T4F, ESR, CMP, CK, CBC, CRP, TSH3 ####[address] Gamma Globulin, Urine 17.1 % Normal . [facility] Comment on above: Performed By: #### U PE RAND, CAMILLA,URINE, ALDOLASE, SPE, CAMILLA SERUM ####[facility] ,#### ADDONUAPLUS, T4F, ESR, CMP, CK, CBC, CRP, TSH3 ####[address] M-Maury % Not Observed Normal Not Observed [facility] Comment on above: Performed By: #### U PE RAND, CAMILLA,URINE, ALDOLASE, SPE, CAMILLA SERUM ####[facility] ,#### ADDONUAPLUS, T4F, ESR, CMP, CK, CBC, CRP, TSH3 ####[address] Please Note: Comment Normal . [facility] Comment on above: Result Comment: Prot ein electrophoresis scan will follow via computer, mail, or barrel lathe operator delivery. PERFORMED BY: [facility] [address] [facility] [place] [address] PATHOLOGIST [employer] INTELLIGENCE OFFICER ANAHY MCKEE M.D. Performed By: #### U PE RAND, CAMILLA,URINE, ALDOLASE, SPE, CAMILLA SERUM ####[facility] ,#### ADDONUAPLUS, T4F, ESR, CMP, CK, CBC, CRP, TSH3 ####[address] Protein (U) [Mass/Vol] 9.0 mg/dL Normal Not Estab. Th e [facility] Comment on above: Performed By: #### U PE RAND, CAMILLA,URINE, ALDOLASE, SPE, CAMILLA SERUM ####[facility] ,#### ADDONUAPLUS, T4F, ESR, CMP, CK, CBC, CRP, TSH3 ####[address] Protein Electrophoresis, Ser umon 08-02-2024 Albumin [Mass/Vol] 3.9 g/dL Normal 2.9-4.4 [facility] Comment on above: Performed By: #### U PE RAND, CAMILLA,URINE, ALDOLASE, SPE, CAMILLA SERUM ####[facility] ,#### ADDONUAPLUS, T4F, ESR, CMP, CK, CBC, CRP, TSH3 ####[address] Albumin/Globulin [Mass ratio] 1.1 {ratio} Normal 0.7-1.7 [facility] Comment on above: Performed By: #### U PE RAND, CAMILLA,URINE, ALDOLASE, SPE, CAMILLA SERUM ####[facility] ,#### ADDONUAPLUS, T4F, ESR, CMP, CK, CBC, CRP, TSH3 ####[address] Muekd-4-Sefaqhkb 0.2 g/dL Normal 0.0-0.4 [facility] Comment on above: Performed By: #### U PE RAND, CAMILLA,URINE, ALDOLASE, SPE, CAMILLA SERUM ####[facility] ,#### ADDONUAPLUS, T4F, ESR, CMP, CK, CBC, CRP, TSH3 ####[address] Htaik-4-Mtgedfcg 1.0 g/dL Normal 0.4-1.0 [facility] Comment on above: Performed By: #### U PE RAND, CAMILLA,URINE, ALDOLASE, SPE, CAMILLA SERUM ####[facility] ,#### ADDONUAPLUS, T4F, ESR, CMP, CK, CBC, CRP, TSH3 ####[address] Beta Globulin 1.2 g/dL Normal 0.7-1.3 [facility] Comment on above: Performed By: #### U PE RAND, CAMILLA,URINE, ALDOLASE, SPE, CAMILLA SERUM ####[facility] ,#### ADDONUAPLUS, T4F, ESR, CMP, CK, CBC, CRP, TSH3 ####[address] Gamma Globulin 1.3 g/dL Normal 0.4-1.8 [facility] Comment on above: Performed By: #### U PE RAND, CAMILLA,URINE, ALDOLASE, SPE, CAMILLA SERUM ####[facility] ,#### ADDONUAPLUS, T4F, ESR, CMP, CK, CBC, CRP, TSH3 ####[place] [address] [place] Globulin (S) [Mass/Vol] 3.6 g/dL Normal 2.2-3.9 T [facility] Comment on above: Performed By: #### U PE RAND, CAMILLA,URINE, ALDOLASE, SPE, CAMILLA SERUM ####[facility] ,#### ADDONUAPLUS, T4F, ESR, CMP, CK, CBC, CRP, TSH3 ####[place] [id number] M-Maury Not Observed Normal Not Observed [facility] Comment on above: Performed By: #### U PE RAND, CAMILLA,URINE, ALDOLASE, SPE, CAMILLA SERUM ####[facility] ,#### ADDONUAPLUS, T4F, ESR, CMP, CK, CBC, CRP, TSH3 ####[place] [id number] SPE-Note Comment Normal . [facility] Comment on above: Result Comment: Prot ein electrophoresis scan will follow via computer, mail, or barrel lathe operator delivery. Performed at: [facility] [address] [id number] Assembler Ping Pong Table: Gabriel Whitman PhD, Phone: [phone] PERFORMED BY: [facility] [address] [place] [address] PATHOLOGIST [employer]IGENCE OFFICER ANAHY MCKEE M.D. Performed By: #### U PE RAND, CAMILLA,URINE, ALDOLASE, SPE, CAMILLA SERUM ####[facility] ,#### ADDONUAPLUS, T4F, ESR, CMP, CK, CBC, CRP, TSH3 ####[address] Protein Test strip (U) [Mass /Vol]Ordered By: Jesus Ayala on 08-02-2024 Protein (U) [Mass/Vol] Negative Negative [facility] Protein (U) [Mass/Vol] Protein [Mass/vol ume] in Urine by Test strip Negative [facility] Protein [Mass/volume] in Ser um or PlasmaOrdered By: Jesus Ayala on 08-02-2024 Protein [Mass/Vol] 7.5 g/dL Normal 6.0-8.5 [facility] Comment on above: Performed By: #### U PE RAND, CAMILLA,URINE, ALDOLASE, SPE, CAMILLA SERUM #### [facility] , #### ADDONUAPLUS, T4F, ESR, CMP, CK, CBC, CRP, TSH3 #### [facility] [address] Performed By: #### U PE RAND, CAMILLA,URINE, ALDOLASE, SPE, CAMILLA SERUM ####[facility] ,#### ADDONUAPLUS, T4F, ESR, CMP, CK, CBC, CRP, TSH3 ####[facility] [id number] Protein [Mass/Vol] Protein [Mass/volume ] in Serum or Plasma 6.0-8.5 [facility] RBC Auto (Bld) [#/Vol]Ordere d By: Jesus Ayala on 08-02-2024 RBC (Bld) [#/Vol] Erythrocytes [#/volu me] in Blood by Automated count 3.60-5.00 [facility] Serum aldolase measurementOr dered By: Jesus Ayala on 08-02-[address] biopsy 3.3-10.3 [facility] Comment on above: Performed at: [address] [id number] Director: Gabriel Whitman PhD, Phone: [phone] Serum globulin measurement ( mass/volume)Ordered By: Jesus Ayala on 08-02-2024 Globulin (S) [Mass/Vol] Serum globulin measurement (mass/volume) 2.2-3.9 [facility] Serum globulin measurement b y calculation (mass/volume)Ordered By: Jesus Ayala on 08-02-2024 Globulin (S) [Mass/Vol] 3.2 g/dL Normal F [facility] Comment on above: Performed By: #### U PE RAND, CAMILLA,URINE, ALDOLASE, SPE, CAMILLA SERUM #### [facility] , #### ADDONUAPLUS, T4F, ESR, CMP, CK, CBC, CRP, TSH3 #### [facility] [address] Serum immunofixation electro phoresisOrdered By: Jesus Ayala on 08-02-2024 Serum Immunofixation Comment . [facility] Comment on above: No monoclonality det ected. Serum or plasma IgA measurem ent (mass/volume)Ordered By: Jesus Ayala on 08-02-2024 IgA [Mass/Vol] IgA [Mass/volume] in Serum or Plasma 87-352 [facility] Serum or plasma IgG measurem ent (mass/volume)Ordered By: Jesus Ayala on 08-02-2024 IgG [Mass/Vol] IgG [Mass/volume] in Serum or Plasma [phone] [facility] Serum or plasma IgM measurem ent (mass/volume)Ordered By: Jesus Ayala on 08-02-2024 IgM [Mass/Vol] IgM [Mass/volume] in Serum or Plasma 26-217 [facility] Comment on above: Performed at: [place] [id number] Director: Gabriel Whitman PhD, Phone: [phone] Serum or plasma albumin ge urement (mass/volume)Ordered By: Jesus Ayala on 08-02-2024 Albumin [Mass/Vol] Albumin [Mass/volume ] in Serum or Plasma 2.9-4.4 [facility] Serum or plasma albumin/glob ulin mass ratioOrdered By: Jesus Ayala on 08-02-2024 Albumin/Globulin [Mass ratio] 1.3 {ratio} Normal [facility] Comment on above: Performed By: #### U PE RAND, CAMILLA,URINE, ALDOLASE, SPE, CAMILLA SERUM #### [facility] , #### ADDONUAPLUS, T4F, ESR, CMP, CK, CBC, CRP, TSH3 #### [facility] [address] Albumin/Globulin [Mass ratio] Serum or plasma albumin/globulin mass ratio 0.7-1.7 [facility] Serum or plasma alpha 1 glob ulin measurement by electrophoresis (mass/volume)Ordered By: Jesus Jamie on 08-02-2024 Alpha 1 globulin Elph [Mass/Vol] Serum or plasma alpha 1 globulin measurement by electrophoresis (mass/volume) 0.0-0.4 [facility] Serum or plasma alpha 2 glob ulin measurement by electrophoresis (mass/volume)Ordered By: Jesus Gruberrow on 08-02-2024 Alpha 2 globulin Elph [Mass/Vol] Serum or plasma alpha 2 globulin measurement by electrophoresis (mass/volume) 0.4-1.0 [facility] Serum or plasma anion gap de terminationOrdered By: Jesus Gruberrow on 08-02-2024 Anion gap [Moles/Vol] 12.2 mmol/L Normal 6.0-15.0 [facility] Comment on above: Performed By: #### U PE RAND, CAMILLA,URINE, ALDOLASE, SPE, CAMILLA SERUM #### [facility] , #### ADDONUAPLUS, T4F, ESR, CMP, CK, CBC, CRP, TSH3 #### [facility] [address] Anion gap [Moles/Vol] Serum or plasma an ion gap determination 6.0-15.0 [facility] Serum or plasma beta globuli n measurement by electrophoresis (mass/volume)Ordered By: Jesus Ayala on 08-02-2024 Beta globulin Elph [Mass/Vol] Serum or plasma beta globulin measurement by electrophoresis (mass/volume) 0.7-1.3 [facility] Serum or plasma cancer antig en 125 (CA-125) measurement (units/volume)Ordered By: Blake Hinojosa on 08-02-2024 Cancer Ag 125 Qn Serum or plasma canc er antigen 125 (CA-125) measurement (units/volume) 0.0-38.1 [facility] Comment on above: [facility] El ectrochemiluminescence Immunoassay(ECLIA)Values obtained with different assay methods or kits cannotbe used interchangeably. Results cannot be interpreted asabsolute evidence of the presence or absence of malignantdisease.Performed at: - [facility] [id number] [place], [place] [id number] Director: Gabriel Whitman PhD, Phone: [phone] Serum or plasma carcinoembry onic antigen measurement (mass/volume)Ordered By: Blake Hinojosa on 08-02-2024 Carcinoembryonic Ag [Mass/Vol] 1.0 ng/mL 0.0-3.0 [facility] Comment on above: Serial tumor marker results determined by assays using different manufacturers or methods may not be comparable.[facility] shucker and method:[employer] UNICMobile2Me DXI, 2 SITE IMMUNOENZYMATIC SANDWICH ASSAY. Serum or plasma gamma globul in measurement by electrophoresis (mass/volume)Ordered By: Jesus Ayala on 08-02-2024 Gamma globulin Elph [Mass/Vol] Serum or plasma gamma globulin measurement by electrophoresis (mass/volume) 0.4-1.8 [facility] Sodium [Moles/volume] in Ser um or PlasmaOrdered By: Jesus Ayala on 08-02-2024 Sodium [Moles/Vol] 138 mmol/L Normal 136-145 [facility] Comment on above: Performed By: #### U PE RAND, CAMILLA,URINE, ALDOLASE, SPE, CAMILLA SERUM #### [facility] , #### ADDONUAPLUS, T4F, ESR, CMP, CK, CBC, CRP, TSH3 #### [facility] [address] Sodium [Moles/Vol] Sodium [Moles/volume ] in Serum or Plasma 136-145 [facility] Specific gravity Test strip (U) [Rel density]Ordered By: Jesus Ayala on 08-02-2024 Specific gravity (U) [Rel density] 1.013 1.001-1.030 [facility] Specific gravity (U) [Rel density] Specific gravity of Urine by Test strip 1.001-1.030 [facility] Thyrotropin [Units/volume] i n Serum or PlasmaOrdered By: Jesus Ayala on 08-02-2024 TSH Qn 2.77 m[IU]/L Normal 0.45-5.33 [facility] Comment on above: Result Comment: PERF ORMED BY: [place] [address] PATHOLOGIST [employer]TE[employer]IGENCE OFFICER ANAHY MCKEE M.D. Performed By: #### U PE RAND, CAMILLA,URINE, ALDOLASE, SPE, CAMILLA SERUM #### [facility] , #### ADDONUAPLUS, T4F, ESR, CMP, CK, CBC, CRP, TSH3 #### [facility] [address] [place] [address] TSH Qn Thyrotropin [Units/volume] in Serum or Plasma 0.45-5.33 [facility] Thyroxine (T4) free [Mass/vo lume] in Serum or PlasmaOrdered By: Jesus Ayala on 08-02-2024 Free T4 [Mass/Vol] 0.68 ng/dL Normal 0.61-1.12 [facility] Comment on above: Performed By: #### U PE RAND, CAMILLA,URINE, ALDOLASE, SPE, CAMILLA SERUM #### [facility] , #### ADDONUAPLUS, T4F, ESR, CMP, CK, CBC, CRP, TSH3 #### [facility] [address] [place] [address] Free T4 [Mass/Vol] Thyroxine (T4) free [Mass/volume] in Serum or Plasma 0.61-1.12 [facility] Urea nitrogen [Mass/volume] in Serum or PlasmaOrdered By: Jesus Ayala on 08-02-2024 Urea nitrogen [Mass/Vol] 14 mg/dL Normal 04-29 [facility] Comment on above: Performed By: #### U PE RAND, CAMILLA,URINE, ALDOLASE, SPE, CAMILLA SERUM #### [facility] , #### ADDONUAPLUS, T4F, ESR, CMP, CK, CBC, CRP, TSH3 #### [facility] [address] [place] [address] Urea nitrogen [Mass/Vol] Urea nitrogen [Mass/volume] in Serum or Plasma 04-29 [facility] Urine alpha 1 globulin/total protein by electrophoresisOrdered By: Jesus Ayala on 08-02-2024 Alpha 1 globulin Elph (U) [Mass fraction] Urine alpha 1 globulin/total protein by electrophoresis . The [facility] Urine alpha 2 globulin/total protein ratio by electrophoresisOrdered By: Jesus Ayala on 08-02-2024 Alpha 2 globulin Elph (U) [Mass fraction] Urine alpha 2 globulin/total protein ratio by electrophoresis . [facility] Urine appearanceOrdered By: Jesus Ayala on 08-02-2024 Appearance (U) Clear Normal Clear [facility] Comment on above: Order Comment: Name Collection Type:: Clean-Voided Midstream Performed By: #### U PE RAND, CAMILLA,URINE, ALDOLASE, SPE, CAMILLA SERUM #### [facility] , #### ADDONUAPLUS, T4F, ESR, CMP, CK, CBC, CRP, TSH3 #### [address] Urine bacteria detection by automated methodOrdered By: Jesus Ayala on 08-02-2024 Bacteria Auto Ql (U) Bacteria [Presence] in Urine by Automated None Seen [facility] Urine beta globulin measurem ent by electrophoresis (mass/volume)Ordered By: Jesus Ayala on 08-02-2024 Beta globulin Elph (U) [Mass/Vol] Urine beta globulin measurement by electrophoresis (mass/volume) . [facility] Urine protein measurement (m ass/volume)Ordered By: Jesus Ayala on 08-02-2024 Protein (U) [Mass/Vol] Protein [Mass/vol ume] in Urine Not Estab. [facility] Urobilinogen Test strip (U) [Mass/Vol]Ordered By: Jesus Ayala on 08-02-2024 Urobilinogen (U) [Mass/Vol] Normal mg/dL Normal [facility] Urobilinogen (U) [Mass/Vol] Urobilinogen [Mass/volume] in Urine by Test strip Normal [facility] WBC Auto (Bld) [#/Vol]Ordere d By: Jesus Ayala on 08-02-2024 WBC (Bld) [#/Vol] Leukocytes [#/volume ] in Blood by Automated count 3.8-11.6 [facility] XR chest 2V*on 08-02-2024 XR chest 2V* [facility] Main [place] [id number] XRay Report Signed Patient: Mandeep Puri MR#: [id number] 15 : 1975 Acct:[id number] Age/Sex: 48 / F ADM Date: 08/02/24 Loc: XD Room: Type: [facility] Attending Dr: Jesus Ayala MD Copies [...] Trupti Adorno M.D.08/02/2024 4:18 PM Dictation Location: [place] [address] Transcribed By: SALMA 08/02/241617 Dictated By: Trupti Adorno MD 08/02/241616 Signed By: 08/02/24 1618 Normal [facility] pH Test strip (U)Ordered By: Jesus Ayala on 08-02-2024 pH (U) pH of Urine by Test strip 5.0-9.0 [facility] pH of Urine by Test stripOrd ered By: Jesus Ayala on 08-02-2024 pH (U) 7.0 [pH] Normal 5.0-9.0 [facility] Comment on above: Order Comment: Name Collection Type:: Clean-Voided Midstream Performed By: #### U PE RAND, CAMILLA,URINE, ALDOLASE, SPE, CAMILLA SERUM #### [facility] , #### ADDONUAPLUS, T4F, ESR, CMP, CK, CBC, CRP, TSH3 #### [facility] [address] [place] [id number] [facility] ALL CBC WITH AUTO DIFFon BASOPHILS ABSOLUTE AUTO 0 N [facility] Basophils/100 WBC (Bld) 0.5 % 0.2 - 2.0 % [facility] Eosinophils/100 WBC (Bld) 2.9 % 0.9 - 7.0 % [facility] Erythrocyte distribution width (RBC) [Ratio] 14.4 % 11.0 - 15.0 % [facility] Hematocrit (Bld) [Volume fraction] 35.2 % Low 36.0 - 48.0 % [facility] Hemoglobin (Bld) [Mass/Vol] 11.4 g/dL Low 12.0 - 16.0 g/dL [facility] IMMATURE GRANULOCYTES ABS AUTO 0.06 High [facility] Immature granulocytes/100 WBC (Bld) 0.7 % High 0.0 - 0.5 % [facility] Interpretation and review of laboratory results Abnormal [facility] LYMPHOCYTES ABSOLUTE AUTO 1.1 Low [facility] Lymphocytes/100 WBC (Bld) 14 % Low 20.5 - 60.0 % [facility] MCH (RBC) [Entitic mass] 28 pg 26.7 - 34.0 pg [facility] MCHC (RBC) [Mass/Vol] 32.4 g/dL 29.9 - 35.2 g/dL [facility] MCV (RBC) [Entitic vol] 86.5 fL 81.0 - 99.0 fL [facility] MONOCYTES ABSOLUTE AUTO 0.4 N [facility] Monocytes/100 WBC (Bld) 5 % 1.7 - 12.0 % [facility] NEUTROPHILS ABSOLUTE AUTO 6.3 [facility] Neutrophils/100 WBC (Bld) 76.9 % High 43.0 - 75.0 % [facility] Platelet mean volume (Bld) [Entitic vol] 8.3 fL Low 9.5 - 13.5 fL [facility] TBH EO # 0.2 [facility] TBH PLT 362 [facility] TB RBC 4.07 Low [facility] TB WBC 8.2 [facility] Follow-Upon 07-07-2024 Follow-Up [id number] Antonio Puri i 1975 F Date Provider Department Center 07/07/2024 Shey-SREE BLANCHARD [facility] URO Second Fl Family History Problem Relation Age of Onset Fibromyalgia Mother Heart disease Father Hypertension Sister Polycystic kidney disease Sister Hypertension Brother Polycystic kidney disease Brother Family Status - Relation Status Age at Mother Father Sister Brother Level of Service:64263 [place] OFFICE/OUTPATIENT ESTABLISHED LOW MDM 20 MIN Reason for Visit and Comments: UTI [[id number]] - CT results Normal [facility] URINE CULTURE, ROUTINEon Bacteria identified Cx Nom (U) ESCHERICHIA COLI Abnormal [facility] Comment on above: Result Comment: >100 ,000 CFU/Ml Escherichia coli Susceptibility to Follow Performed By: #### L [id number] #### [facility] ([facility]) [address] [place] [address] CT [facility] ABDOMEN PELVIS WO IV CONTRAST [...] kidney with innumerable circumscribed lesions within the stillaguamish kidneys, many which are simple cysts, others [...] Epperson MD. Not Vldtd Invalid Interpretation Code [facility] ALL CBC WITH AUTO DIFFon BASOPHILS ABSOLUTE AUTO 0.0 N [facility] Basophils/100 WBC (Bld) 0.4 % 0.2 - 2.0 % [facility] Eosinophils/100 WBC (Bld) 2.4 % 0.9 - 7.0 % [facility] Erythrocyte distribution width (RBC) [Ratio] 15.5 % High 11.0 - 15.0 % [facility] Hematocrit (Bld) [Volume fraction] 37.7 % 36.0 - 48.0 % [facility] Hemoglobin (Bld) [Mass/Vol] 11.9 g/dL Low 12.0 - 16.0 g/dL [facility] IMMATURE GRANULOCYTES ABS AUTO 0.03 [facility] Immature granulocytes/100 WBC (Bld) 0.4 % 0.0 - 0.5 % [facility] Interpretation and review of laboratory results Abnormal [facility] LYMPHOCYTES ABSOLUTE AUTO 1.1 Low [facility] Lymphocytes/100 WBC (Bld) 14.8 % Low 20.5 - 60.0 % [facility] MCH (RBC) [Entitic mass] 27.9 pg 26.7 - 34.0 pg [facility] MCHC (RBC) [Mass/Vol] 31.6 g/dL 29.9 - 35.2 g/dL [facility] MCV (RBC) [Entitic vol] 88.3 fL 81.0 - 99.0 fL [facility] MONOCYTES ABSOLUTE AUTO 0.4 N [facility] Monocytes/100 WBC (Bld) 5.1 % 1.7 - 12.0 % [facility] NEUTROPHILS ABSOLUTE AUTO 5.7 [facility] Neutrophils/100 WBC (Bld) 76.9 % High 43.0 - 75.0 % [facility] Platelet mean volume (Bld) [Entitic vol] 8.6 fL Low 9.5 - 13.5 fL [facility] TBH EO # 0.2 [facility] TBH PLT 333 [facility] TB RBC 4.27 [facility] TBH WBC 7.5 [facility] Orders Onlyon 06-15-2024 Orders Only [id number] Antonio Puri i 1975 F Date Provider Department Center 06/15/2024 124-SYLVESTERMUNIRA TXP None Family History Problem Relation Age of Onset Fibromyalgia Mother Heart disease Father Hypertension Sister Polycystic kidney disease Sister Hypertension Brother Polycystic kidney disease Brother Family Status - Relation Status Age at Mother Father Sister Brother Normal [facility] ALL CBC WITH AUTO DIFFon BASOPHILS ABSOLUTE AUTO 0.0 N [facility] Healthcare Basophils/100 WBC (Bld) 0.5 % 0.2 - 2.0 % [facility] Eosinophils/100 WBC (Bld) 3.0 % 0.9 - 7.0 % [facility] Erythrocyte distribution width (RBC) [Ratio] 15.9 % High 11.0 - 15.0 % [facility] Hematocrit (Bld) [Volume fraction] 36.3 % 36.0 - 48.0 % [facility] Hemoglobin (Bld) [Mass/Vol] 11.8 g/dL Low 12.0 - 16.0 g/dL [facility] IMMATURE GRANULOCYTES ABS AUTO 0.04 High [facility] Immature granulocytes/100 WBC (Bld) 0.5 % 0.0 - 0.5 % [facility] Interpretation and review of laboratory results Abnormal [facility] LYMPHOCYTES ABSOLUTE AUTO 1.2 [facility] Lymphocytes/100 WBC (Bld) 14.0 % Low 20.5 - 60.0 % [facility] MCH (RBC) [Entitic mass] 28.0 pg 26.7 - 34.0 pg [facility] MCHC (RBC) [Mass/Vol] 32.5 g/dL 29.9 - 35.2 g/dL [facility] MCV (RBC) [Entitic vol] 86.0 fL 81.0 - 99.0 fL [facility] MONOCYTES ABSOLUTE AUTO 0.5 N [facility] Monocytes/100 WBC (Bld) 5.7 % 1.7 - 12.0 % [facility] NEUTROPHILS ABSOLUTE AUTO 6.4 [facility] Neutrophils/100 WBC (Bld) 76.3 % High 43.0 - 75.0 % [facility] Platelet mean volume (Bld) [Entitic vol] 8.6 fL Low 9.5 - 13.5 fL [facility] TBH EO # 0.3 [facility] TBH PLT 331 [facility] TB RBC 4.22 [facility] TB WBC 8.4 [facility] Consulton 05-19-2024 Consult [id number] Antonio Puri i 1975 F Date Provider Department Center 05/19/2024 Shey-SREE BLANCHARD [facility] URO Second Fl Family History Problem Relation Age of Onset Fibromyalgia Mother Heart disease Father Hypertension Sister Polycystic kidney disease Sister Hypertension Brother Polycystic kidney disease Brother Family Status - Relation Status Age at Mother Father Sister Brother Level of Service:06119 [place] OFFICE/OUTPATIENT ESTABLISHED MOD MDM 30 MIN Reason for Visit and Comments: UTI [[id number]] - Recurrent chronic ecoli , has fibromyalgia and when that flairs up the UTI happens Normal [facility] CREATININE, URINE, RANDOMon 04-27-2024 Creatinine (U) [Mass/Vol] 142.0 mg/dL Normal 26-299 [facility] Comment on above: Performed By: #### L [id number] ####[facility] HOSPITAL LAB ([facility]ER)[address] [place] [address] Follow-Upon 04-27-2024 Follow-Up [id number] Antonio Puri i 1975 F Date Provider Department Center 04/27/2024 124-MUNIRA PHAN None Family History Problem Relation Age of Onset Fibromyalgia Mother Heart disease Father Hypertension Sister Polycystic kidney disease Sister Hypertension Brother Polycystic kidney disease Brother Family Status - Relation Status Age at Mother Father Sister Brother Level of Service:82951 [place] OFFICE/OUTPATIENT ESTABLISHED MOD MDM 30 MIN [...] mg because they are smaller pills. Normal [facility] PROTEIN, URINE, RANDOMon Protein (U) [Mass/Vol] 51.7 mg/dL Normal [facility] Comment on above: Result Comment: Ther e are no established reference values for random urine specimens. Performed By: #### L [id number] #### [facility] ([facility]) [address] [place] [address] URINALYSISon 04-27-2024 BILIRUBIN, TOTAL PRESENCE IN URINE Negative Normal Negative [facility] Comment on above: Performed By: #### L [id number] #### [facility] ([facility]) [address] [place] [address] Clarity (U) Slightly Cloudy Abnormal Clear [facility] Comment on above: Performed By: #### L [id number] #### [facility] ([facility]) [address] [place] [address] Color (U) Yellow Normal Yellow [facility] Comment on above: Performed By: #### L [id number] #### [facility] ([facility]) [address] [place] [address] Glucose (U) [Mass/Vol] Negative Normal Negative [facility] Comment on above: Performed By: #### L [id number] #### [facility] ([facility]) [address] [place] [address] HEMOGLOBIN PRESENCE IN URINE Small Abnormal Negative [facility] Comment on above: Performed By: #### L [id number] #### [facility] ([facility]) [address] [place] [address] Ketones Ql (U) Negative Normal Negative [facility] Comment on above: Performed By: #### L [id number] #### [facility] ([facility]) [address] [place] [address] LEUKOCYTE ESTERASE PRESENCE IN URINE BY TEST STRIP Large Abnormal Negative [facility] Comment on above: Performed By: #### L [id number] #### [facility] ([facility]) [address] [place] [address] NITRITE PRESENCE IN URINE Positive Abnormal Negative [facility] Comment on above: Performed By: #### L [id number] #### [facility] ([facility]) [address] [place] [address] pH (U) 6.0 [pH] Normal 5.0-8.0 [facility] Comment on above: Performed By: #### L [id number] #### [facility] ([facility]) [address] [place] [address] Protein (U) [Mass/Vol] 100 mg/dL Abnormal Negative [facility] Comment on above: Performed By: #### L [id number] #### [facility] ([facility]) [address] [place] [address] Specific gravity (U) [Rel density] 1.012 Low 1.015-1.020 [facility] Comment on above: Performed By: #### L [id number] #### [facility] ([facility]) [address] [place] [address] URINALYSIS MICROSCOPICon CASTS IN URINE Normal [facility] Comment on above: Performed By: #### L [id number] #### [facility] ([facility]) [address] [place] [address] CRYSTALS IN URINE Normal [facility] Comment on above: Performed By: #### L [id number] #### [facility] ([facility]) [address] [place] [address] MUCUS (#/HPF) IN URINE SEDIMENT Occasional Normal None Seen, Occasional, Few [facility] Comment on above: Performed By: #### L [id number] #### [facility] ([facility]) [address] [place] [address] RBC (#/HPF) IN URINE SEDIMENT 11-[address] [facility] Comment on above: Performed By: #### L [id number] #### [facility] ([facility]) [address] [place] [address] SQUAMOUS EPITHELIAL CELLS (#/HPF) IN URINE SEDIMENT Moderate Abnormal None Seen, Occasional [facility] Comment on above: Performed By: #### L [id number] #### [facility] ([facility]) [address] [place] [address] WBC (LEUKOCYTE) (#/HPF) IN URINE SEDIMENT >[address] [facility] Comment on above: Performed By: #### L [id number] #### [facility] ([facility]) [address] [place] [address] URINE CULTURE, ROUTINEon Bacteria identified Cx Nom (U) ESCHERICHIA COLI Abnormal [facility] Comment on above: Result Comment: >100 ,000 CFU/Ml Escherichia coli Susceptibility to Follow Performed By: #### L [id number] ####[facility] ([facility])[address] [place] [address] BILIRUBIN, DIRECTon 04-23-20 Magnesium [Mass/Vol] 0.0 mg/dL Normal 0-0.2 [facility] Comment on above: Performed By: #### L [id number] #### [facility] ([facility]) [address] [place] [address] CBC WITH AUTO DIFFERENTIALon 04-23-2024 Basophils (Bld) [#/Vol] 0.05 10*3/uL Normal 0.00-0.20 [facility] Comment on above: Performed By: #### L [id number] #### [facility] ([facility]) [address] [place] [address] Basophils/100 WBC (Bld) 0.6 % Normal 0.0-1.0 U [facility] Comment on above: Performed By: #### L [id number] #### [facility] ([facility]) [address] [place] [address] Eosinophils (Bld) [#/Vol] 0.17 10*3/uL Normal 0.00-0.50 [facility] Comment on above: Performed By: #### L [id number] #### [facility] ([facility]) [address] [place] [address] Eosinophils/100 WBC (Bld) 1.9 % Normal 0.0-6.0 [facility] Comment on above: Performed By: #### L [id number] #### [facility] ([facility]) [address] [place] [address] Erythrocyte distribution width (RBC) [Ratio] 15.7 % High 11.5-15.0 [facility] Comment on above: Performed By: #### L [id number] #### [facility] ([facility]) [address] [place] [address] ERYTHROCYTE MEAN CORPUSCULAR HEMOGLOBIN CONCENTRATION (G/DL) BY AUTOMATED 32.7 g/dL Normal 32.0-35.0 [facility] Comment on above: Performed By: #### L [id number] #### [facility] ([facility]) [address] [place] [address] Hematocrit (Bld) [Volume fraction] 39.2 % Normal 36.0-48.0 [facility] Comment on above: Performed By: #### L [id number] #### [facility] ([facility]) [address] [place] [address] Hemoglobin (Bld) [Mass/Vol] 12.8 g/dL Normal 12.0-15.0 [facility] Comment on above: Performed By: #### L [id number] #### [facility] ([facility]) [address] [place] [address] Immature granulocytes (Bld) [#/Vol] 0.06 10*3/uL Normal 0.00-0.20 [facility] Comment on above: Performed By: #### L [id number] #### [facility] ([facility]) [address] [place] [address] Immature granulocytes/100 WBC (Bld) 0.7 % Normal 0.0-1.0 [facility] Comment on above: Performed By: #### L [id number] #### [facility] ([facility]) [address] [place] [address] Lymphocytes (Bld) [#/Vol] 1.27 10*3/uL Normal 1.20-4.00 [facility] Comment on above: Performed By: #### L [id number] #### [facility] ([facility]) [address] [place] [address] Lymphocytes/100 WBC (Bld) 14.5 % Low 20.0-45.0 [facility] Comment on above: Performed By: #### L [id number] #### [facility] ([facility]) [address] [place] [address] MCH (RBC) [Entitic mass] 27.7 pg Normal 27.0-33.0 [facility] Comment on above: Performed By: #### L [id number] #### [facility] ([facility]) [address] [place] [address] MCV (RBC) [Entitic vol] 84.8 fL Normal 82.0-98.0 U [facility] Comment on above: Performed By: #### L [id number] #### [facility] ([facility]) [address] [place] [address] Monocytes (Bld) [#/Vol] 0.40 10*3/uL Normal 0.10-1.00 [facility] Comment on above: Performed By: #### L [id number] #### [facility] ([facility]) [address] [place] [address] Monocytes/100 WBC (Bld) 4.6 % Low 5.0-12.0 U [facility] Comment on above: Performed By: #### L [id number] #### [facility] ([facility]) [address] [place] [address] Neutrophils (Bld) [#/Vol] 6.82 10*3/uL Normal 1.60-7.60 [facility] Comment on above: Performed By: #### L [id number] #### [facility] ([facility]) [address] [place] [address] Neutrophils/100 WBC (Bld) 77.7 % High 40.0-72.0 [facility] Comment on above: Performed By: #### L [id number] #### [facility] ([facility]) [address] [place] [address] NRBC (PER 100 WBCS) BY AUTOMATED COUNT 0.0 % Normal 0 [facility] Comment on above: Performed By: #### L [id number] #### [facility] ([facility]) [address] [place] [address] PLATELETS (10*3/UL) IN BLOOD AUTOMATED COUNT 337 10*3/uL Normal 150-400 [facility] Comment on above: Performed By: #### L [id number] #### [facility] ([facility]) [address] [place] [address] RBC (Bld) [#/Vol] 4.62 10*6/uL Normal 3.80-5.00 [facility] Comment on above: Performed By: #### L [id number] #### [facility] ([facility]) [address] [place] [address] WBC (Bld) [#/Vol] 8.77 10*3/uL Normal 4.00-10.60 [facility] Comment on above: Performed By: #### L [id number] #### [facility] ([facility]) [address] [place] [address] COMPREHENSIVE METABOLIC PANE Jonathan 04-23-2024 Albumin [Mass/Vol] 4.4 g/dL Normal 3.5-5.7 [facility] Comment on above: Performed By: #### L [id number] #### [facility] ([facility]) [address] [place] [address] ALP [Catalytic activity/Vol] 74 U/L Normal 34-104 [facility] Comment on above: Performed By: #### L [id number] #### [facility] ([facility]) [address] [place] [address] ALT [Catalytic activity/Vol] 9 U/L Normal 7-52 [facility] Comment on above: Performed By: #### L [id number] #### [facility] ([facility]) [address] [place] [address] Anion gap [Moles/Vol] 13 mmol/L Normal 7-20 [facility] Comment on above: Performed By: #### L [id number] #### [facility] ([facility]) [address] [place] [address] AST [Catalytic activity/Vol] 14 U/L Normal 13-39 [facility] Comment on above: Performed By: #### L [id number] #### [facility] ([facility]) [address] [place] [address] Bilirubin [Mass/Vol] 0.4 mg/dL Normal 0.3-1.0 [facility] Comment on above: Performed By: #### L [id number] #### [facility] ([facility]) [address] [place] [address] Calcium [Mass/Vol] 9.4 mg/dL Normal 8.6-10.3 [facility] Comment on above: Performed By: #### L [id number] #### [facility] ([facility]) [address] [place] [address] Chloride [Moles/Vol] 104 mmol/L Normal 98-107 [facility] Comment on above: Performed By: #### L [id number] #### [facility] ([facility]) [address] [place] [address] CO2 [Moles/Vol] 25 mmol/L Normal 21-31 [facility] Comment on above: Performed By: #### L [id number] #### [facility] ([facility]) [address] [place] [address] Creatinine [Mass/Vol] 1.09 mg/dL Normal 0.60-1.20 [facility] Comment on above: Performed By: #### L [id number] #### [facility] ([facility]) [address] [place] [address] GLOMERULAR FILTRATION RATE ML/MIN/1.73 SQ M.PREDICTED 62.7 mL/min/1.73m*2 Normal >60.0 [facility] Comment on above: Result Comment: [facility]???s estimated glomerular filtration rate (eGFR) will [...] group of individuals. Performed By: #### L [id number] #### [facility] ([facility]) [address] [place] [address] Glucose [Mass/Vol] 108 mg/dL High 70-100 [facility] Comment on above: Performed By: #### L [id number] #### [facility] ([facility]) [address] [place] [address] Potassium [Moles/Vol] 3.5 mmol/L Normal 3.5-5.1 [facility] Comment on above: Performed By: #### L [id number] #### [facility] ([facility]) [address] [place] [address] Protein [Mass/Vol] 7.6 g/dL Normal 6.0-8.3 [facility] Comment on above: Performed By: #### L [id number] #### [facility] ([facility]) [address] [place] [address] Sodium [Moles/Vol] 138 mmol/L Normal 136-145 [facility] Comment on above: Performed By: #### L [id number] #### [facility] ([facility]) [address] [place] [address] Urea nitrogen [Mass/Vol] 13 mg/dL Normal 7-25 [facility] Comment on above: Performed By: #### L [id number] #### [facility] ([facility]) [address] [place] [address] UREA NITROGEN/CREATININE (MASS RATIO) IN SER/PLAS 11.[address] [facility] Comment on above: Performed By: #### L [id number] #### [facility] ([facility]) [address] [place] [address] HEMOGLOBIN A1Con 04-23-2024 Glucose [Mass/Vol] 105 mg/dL Normal [facility] Comment on above: Performed By: #### L [id number] #### [facility] ([facility]) [address] [facility] [address] HbA1c (Bld) [Mass fraction] 5.3 % Normal 4.0-6.0 [facility] Comment on above: Performed By: #### L [id number] #### [facility] ([facility]) [address] [facility] [place] [address] LIPID PANELon 04-23-2024 CHOL/HDL 4.0 mg/dL Normal [facility] Comment on above: Performed By: #### L [id number] #### [facility] ([facility]) [address] [place] [address] Cholesterol [Mass/Vol] 182 mg/dL Normal 120-200 [facility] Comment on above: Performed By: #### L [id number] #### [facility] ([facility]) [address] [place] [address] Magnesium [Mass/Vol] 166 mg/dL High 40-149 [facility] Comment on above: Result Comment: TRIG LYCERIDE REFERENCE RANGE: 20 YEARS AND OLDER CARDIOVASCULAR RISK LESS THAN 150 mg/dL LOW RISK 150 TO 199 mg/dL BORDERLINE RISK 200 mg/dL AND GREATER HIGH RISK Performed By: #### L [id number] #### [facility] ([facility]) [address] [facility] [address] Magnesium [Mass/Vol] 103 mg/dL Normal 0-160 [facility] Comment on above: Performed By: #### L [id number] #### [facility] ([facility]) [address] [facility] [place] [place] [address] Magnesium [Mass/Vol] 46 mg/dL Normal 23-92 [facility] Comment on above: Performed By: #### L [id number] #### [facility] ([facility]) [address] [address] NON HDL CHOL. (LDL+VLDL) [address] [facility] Comment on above: Performed By: #### L [id number] #### [facility] ([facility]) [address] [place] [address] TOTAL VLDL-C 33 mg/dL Normal 0-40 [facility] Comment on above: Performed By: #### L [id number] #### [facility] ([facility]) [address] [place] [address] Labon 04-23-2024 Lab [id number] Antonio Puri i 1975 F Date Provider Department Center 04/23/2024 2245-[facility] OPD LAB RESOURCE [facility] OPD [facility] Family History Problem Relation Age of Onset Fibromyalgia Mother Heart disease Father Hypertension Sister Polycystic kidney disease Sister Hypertension Brother Polycystic kidney disease Brother Family Status - Relation Status Age at Mother Father Sister Brother Normal [facility] MAGNESIUMon 04-23-2024 Magnesium [Mass/Vol] 1.8 mg/dL Low 1.9-2.7 [facility] Comment on above: Performed By: #### L [id number] #### [facility] ([facility]) [address] [place] [address] PHOSPHORUSon 04-23-2024 Magnesium [Mass/Vol] 2.8 mg/dL Normal 2.5-5.0 [facility] Comment on above: Performed By: #### L [id number] #### [facility] ([facility]) [address] [place] [address] TACROLIMUS LEVELon Tacrolimus (Bld) [Mass/Vol] 10.5 ng/mL Normal 5.0-20.0 [facility] Comment on above: Result Comment: The MARCELO DISPENSER OPERATOR Tacrolimus assay is a delayed one-step immunoassay for the quantitative determination of tacrolimus in human whole blood using the chemiluminescent microparticle immunoassay (CMIA) technology with flexible assay protocols, referred to as Chemiflex. Performed By: #### L [id number] #### [facility] ([facility]) [address] [place] [address] URIC ACIDon 04-23-2024 Magnesium [Mass/Vol] 4.0 mg/dL Normal 2.3-6.6 [facility] Comment on above: Performed By: #### L [id number] #### [facility] ([facility]) [address] [place] [address] URINALYSISon 04-23-2024 BILIRUBIN, TOTAL PRESENCE IN URINE Negative Normal Negative [facility] Comment on above: Performed By: #### L [id number] #### [facility] ([facility]) [address] [place] [address] Clarity (U) Cloudy Abnormal Clear [facility] Comment on above: Performed By: #### L [id number] #### [facility] ([facility]) [address] [place] [address] Color (U) Yellow Normal Yellow [facility] Comment on above: Performed By: #### L [id number] #### [facility] ([facility]) [address] [place] [address] Glucose (U) [Mass/Vol] Negative Normal Negative Un [facility] Comment on above: Performed By: #### L [id number] #### [facility] ([facility]) [address] [place] [address] HEMOGLOBIN PRESENCE IN URINE Negative Normal Negative [facility] Comment on above: Performed By: #### L [id number] #### [facility] ([facility]) [address] [place] [address] Ketones Ql (U) Negative Normal Negative [facility] Comment on above: Performed By: #### L [id number] #### [facility] ([facility]) [address] [place] [address] LEUKOCYTE ESTERASE PRESENCE IN URINE BY TEST STRIP Negative Normal Negative [facility] Comment on above: Performed By: #### L [id number] #### [facility] ([facility]) [address] [place] [address] NITRITE PRESENCE IN URINE Negative Normal Negative [facility] Comment on above: Performed By: #### L [id number] #### [facility] ([facility]) [address] [place] [address] pH (U) 7.0 [pH] Normal 5.0-8.0 [facility] Comment on above: Performed By: #### L [id number] #### [facility] ([facility]) [address] [place] [address] Protein (U) [Mass/Vol] Negative Normal Negative [facility] Comment on above: Performed By: #### L [id number] #### [facility] ([facility]) [address] [place] [address] Specific gravity (U) [Rel density] 1.011 Low 1.015-1.020 [facility] Comment on above: Performed By: #### L [id number] #### [facility] ([facility]) [address] [place] [address] URINALYSIS MICROSCOPICon AMORPHOUS CRYSTALS (#/HPF) IN URINE Few Abnormal None Seen [facility] Comment on above: Performed By: #### L [id number] #### [facility] ([facility]) [address] [place] [address] CASTS IN URINE Normal [facility] Comment on above: Performed By: #### L [id number] #### [facility] ([facility]) [address] [place] [address] CRYSTALS IN URINE Normal [facility] Comment on above: Performed By: #### L [id number] #### [facility] ([facility]) [address] [place] [address] MUCUS (#/HPF) IN URINE SEDIMENT Occasional Normal None Seen, Occasional, Few [facility] Comment on above: Performed By: #### L [id number] #### [facility] ([facility]) [address] [place] [address] RBC (#/HPF) IN URINE SEDIMENT 3-[address] [facility] Comment on above: Performed By: #### L [id number] #### [facility] ([facility]) [address] [place] [address] SQUAMOUS EPITHELIAL CELLS (#/HPF) IN URINE SEDIMENT Many Abnormal None Seen, Occasional [facility] Comment on above: Performed By: #### L [id number] #### [facility] ([facility]) [address] [place] [address] WBC (LEUKOCYTE) (#/HPF) IN URINE SEDIMENT 3-5 [address] [facility] Comment on above: Performed By: #### L [id number] #### [facility] ([facility]) [address] [place] [address] URINE CULTURE, ROUTINEon Bacteria identified Cx Nom (U) <10,000 CFU/ML No Significant Growth Normal [facility] Comment on above: Performed By: #### L [id number] #### [facility] ([facility]) [address] [place] [address] US RENAL COMPLETEon 04-14-20 US RENAL COMPLETE EXAM: Renal Ultrasou nd with Doppler: REASON FOR EXAM: Polycystic kidneys. COMPARISON: None. TECHNIQUE: Real-time ultrasonographic evaluation of the kidneys is performed with color flow Doppler. FINDINGS: There is a transplanted right kidney. Right kidney: Numerous stillaguamish right renal cysts. No hydronephrosis. Left kidney: Numerous stillaguamish left renal cysts. No hydronephrosis. Uniform and [...] report is generated using voice recognition reporting (ChannelMeter). On occasion Javeline erroneously drops words from the report or replaces the spoken word with similar sounding words. Please call with any questions/concerns regarding this report.* Dictated and transcribed 04/14/2024/heriberto This report has been electronically signed and approved by the interpreting radiologist. Electronically Signed René Raymond M.D. 2024-04-14 16:31:56 Normal Not Available Urine Cultureon 03-15-2024 Bacteria identified Cx Nom (U) ORGANISM: Escherichia coli (MDRO) (O:ESCCOLMDRO) [place] Count >100,000 Aerobic CODI Charge (NMIC56) - [...] EXTENDED SPECTRUM BETA-LACTAMASE TFG = THYMIDINE-DEPENDENT STRAIN TERREI = BETA-LACTAMASE POSITIVE IB = INDUCIBLE BETA-LACTAMASE. APPEARS IN PLACE OF 'S' WITH SPECIES KNOWN TO POSSESS INDUCIBLE BETA-LACTAMASES. POTENTIALLY THEY MAY BECOME RESISTANT TO ALL B-LACTAM DRUGS. PERFORMED BY: [place] [address] PATHOLOGIST [employer]TE[employer]IGENCE OFFICER ANAHY MCKEE M.D. Normal [facility] Comment on above: Performed By: #### C UU #### [address] Documentationon 03-03-2024 Documentation [id number] Antonio Puri i 1975 F Date Provider Department Center 03/03/2024 750-JOSE RAFAEL GAVIRIA TXP None Family History Problem Relation Age of Onset Fibromyalgia Mother Heart disease Father Hypertension Sister Polycystic kidney disease Sister Hypertension Brother Polycystic kidney disease Brother Family Status - Relation Status Age at Mother Father Sister Brother Normal [facility] Follow-Upon 12-23-2023 Follow-Up [id number] Antonio Puri i 1975 F Date Provider Department Center 12/23/2023 124-MUNIRA PHAN TXP None Family History Problem Relation Age of Onset Fibromyalgia Mother Heart disease Father Hypertension Sister Polycystic kidney disease Sister Hypertension Brother Polycystic kidney disease Brother Family Status - Relation Status Age at Mother Father Sister Brother Level of Service:75883 RI OFFICE/OUTPATIENT ESTABLISHED MOD MDM 30 MIN Reason for Visit and Comments: Kidney Follow-up [] - Pt has questions about her lab work. Normal [facility] PAPITO Antinuclear Antibodieson 11-06-2023 Antinuclear Abs, IFA Negative Normal . [facility] Comment on above: Result Comment: Nega tive <1:80 Borderline 1:80 Positive >1:80 ICAP nomenclature: AC-0 For more information about Hep-2 cell patterns use ANApatterns.org, the official website for the International Consensus on Antinuclear Antibody (PAPITO) Patterns (ICAP). Performed at: - [address] [id number] [employer] Table: Gabriel Whitman PhD, Phone: [phone] PERFORMED BY: [place] [address] PATHOLOGIST [employer] OFFICER ANAHY MCKEE M.D. Performed By: #### C BC, CMP, CK, CRP, ESR ####[facility]#### PAPITO ####[facility] , Alanine aminotransferase [En zymatic activity/volume] in Serum or PlasmaOrdered By: Perri Ceja on 11-06-2023 ALT [Catalytic activity/Vol] 20 U/L Normal 7-52 [facility] Comment on above: Performed By: #### C BC, CMP, CK, CRP, ESR ####[facility] [place] [address] [place]#### PAPITO ####[facility] , Albumin [Mass/volume] in Ser um or Plasma by Bromocresol green (BCG) dye binding methoOrdered By: Perri Ceja on 11-06-2023 Albumin BCG dye [Mass/Vol] 4.7 g/dL 3.5-5.7 [facility] Alkaline phosphatase [Enzyma tic activity/volume] in Serum or PlasmaOrdered By: Perri Ceja on 11-06-2023 ALP [Catalytic activity/Vol] 96 U/L Normal 34-104 [facility] Comment on above: Performed By: #### C BC, CMP, CK, CRP, ESR ####[facility] [place] [address] [place]#### PAPITO ####[facility] , Aspartate aminotransferase [ Enzymatic activity/volume] in Serum or PlasmaOrdered By: Perri Ceja on 11-06-2023 AST [Catalytic activity/Vol] 16 U/L Normal 13-39 [facility] Comment on above: Performed By: #### C BC, CMP, CK, CRP, ESR ####[place] [address] [place] [address] [place]#### PAPITO ####[facility] , Automated basophil %Ordered By: Perri Ceja on 11-06-2023 Basophils/100 WBC (Bld) 0.7 % Normal . [facility] Comment on above: Performed By: #### C BC, CMP, CK, CRP, ESR ####[address]#### PAPITO ####[facility] , Automated basophil countOrde red By: Perri Brenna on 11-06-2023 Basophils (Bld) [#/Vol] 0.1 10*3/uL Normal 0.0-0.2 [facility] Comment on above: Performed By: #### C BC, CMP, CK, CRP, ESR ####[place] [address] [place]#### PAPITO ####[facility] , Automated blood monocyte cou ntOrdered By: Perri Ceja on 11-06-2023 Monocytes (Bld) [#/Vol] 0.6 10*3/uL Normal 0.0-0.8 [facility] Comment on above: Performed By: #### C BC, CMP, CK, CRP, ESR ####[address]#### PAPITO ####[facility] , Automated eosinophil %Ordere d By: Perri Ceja on 11-06-2023 Eosinophils/100 WBC (Bld) 3.0 % Normal . [facility] Comment on above: Performed By: #### C BC, CMP, CK, CRP, ESR ####[address]#### PAPITO ####[facility] , Automated eosinophil countOr dered By: Perri Ceja on 11-06-2023 Eosinophils (Bld) [#/Vol] 0.3 10*3/uL Normal 0.0-0.45 [facility] Comment on above: Performed By: #### C BC, CMP, CK, CRP, ESR ####[place] [address] [place]#### PAPITO ####[facility] , Automated monocyte %Ordered By: Perri Ceja on 11-06-2023 Monocytes/100 WBC (Bld) 6.6 % Normal . [facility] Comment on above: Performed By: #### C BC, CMP, CK, CRP, ESR ####[place] [address] [place] [id number] [place]#### PAPITO ####[facility] , Automated neutrophil %Ordere d By: Perri Ceja on 11-06-2023 Neutrophils/100 WBC (Bld) 72.1 % Normal . [facility] Comment on above: Performed By: #### C BC, CMP, CK, CRP, ESR ####[place] [address] [place]#### PAPITO ####[facility] , Bilirubin.total [Mass/volume ] in Serum or PlasmaOrdered By: Perri Ceja on 11-06-2023 Bilirubin [Mass/Vol] 0.4 mg/dL Normal 0.3-1.0 [facility] Comment on above: Performed By: #### C BC, CMP, CK, CRP, ESR ####[address]#### PAPITO ####[facility] , C reactive protein [Mass/vol ume] in Serum or PlasmaOrdered By: Perri Ceja on 11-06-2023 CRP [Mass/Vol] 2.0 mg/dL 0.0-0.5 [facility] C-Reactive Proteinon 024 C-Reactive Protein 2.0 mg/dL High 0.0-0.5 [facility] Comment on above: Result Comment: PERF ORMED BY: [facility] [address] [place] [address] PATHOLOGIST [employer] OFFICER ANAHY MCKEE M.D. Performed By: #### C BC, CMP, CK, CRP, ESR ####[place] [id number] [place]#### PAPITO ####[facility] , Calcium [Mass/volume] in Ser um or PlasmaOrdered By: Perri Ceja on 11-06-2023 Calcium [Mass/Vol] 10.3 mg/dL Normal 8.6-10.3 [facility] Comment on above: Performed By: #### C BC, CMP, CK, CRP, ESR ####[address]#### PAPITO ####[facility] , Carbon dioxide, total [Moles /volume] in Serum or PlasmaOrdered By: Perri Ceja on 11-06-2023 CO2 [Moles/Vol] 26.1 mmol/L Normal 21.0-31.0 [facility] Comment on above: Performed By: #### C BC, CMP, CK, CRP, ESR ####[address]#### PAPITO ####[facility] , Chloride [Moles/volume] in S aislinn or PlasmaOrdered By: Perri Ceja on 11-06-2023 Chloride [Moles/Vol] 104 mmol/L Normal 98-107 [facility] Comment on above: Performed By: #### C BC, CMP, CK, CRP, ESR ####[place] [address] [place]#### PAPITO ####[facility] , Complete Blood Count Auto Di ffon 11-06-2023 Mean Corpuscular HGB Conc 33.6 g/dL Normal 32.0-35.0 [facility] Comment on above: Performed By: #### C BC, CMP, CK, CRP, ESR ####[place] [address] [place]#### PAPITO ####[facility] , NRBC% 0.1 /100{WBC} Normal 0-0.5 [facility] Comment on above: Performed By: #### C BC, CMP, CK, CRP, ESR ####[place] [address] [place]#### PAPITO ####[facility] , Comprehensive Metabolic Pane jonathan 11-06-2023 Albumin [Mass/Vol] 4.7 g/dL Normal 3.5-5.7 [facility] Comment on above: Performed By: #### C BC, CMP, CK, CRP, ESR ####[place] [address]#### PAPITO ####[facility] , GFR/1.73 sq M.predicted MDRD (S/P/Bld) [Vol rate/Area] 57.919 mL/min/{1.73_m2} Normal [facility] Comment on above: Performed By: #### C BC, CMP, CK, CRP, ESR ####[address]#### PAPITO ####[facility] , Creatine kinase [Enzymatic a ctivity/volume] in Serum or PlasmaOrdered By: Perri Ceja on 11-06-2023 CK [Catalytic activity/Vol] 30 U/L Normal 30-223 [facility] Comment on above: Result Comment: PERF ORMED BY: [facility] [address] [place] [address] PATHOLOGIST [employer] OFFICER ANAHY MCKEE M.D. Performed By: #### C BC, CMP, CK, CRP, ESR ####[address]#### PAPITO ####[facility] , Creatinine [Mass/volume] in Serum or PlasmaOrdered By: Perri Ceja on 11-06-2023 Creatinine [Mass/Vol] 1.17 mg/dL Normal 0.60-1.20 [facility] Comment on above: Performed By: #### C BC, CMP, CK, CRP, ESR ####[address]#### PAPITO ####[facility] , Erythrocyte Sedimentation Ra mathieu 11-06-2023 ESR (Bld) [Velocity] 49 mm/h High 0-19 [facility] Comment on above: Result Comment: PERF ORMED BY: [facility] [address] [place] [address] PATHOLOGIST [employer] OFFICER ANAHY MCKEE M.D. Performed By: #### C BC, CMP, CK, CRP, ESR ####[address]#### PAPITO ####[facility] , Erythrocyte distribution wid th [Ratio] by Automated countOrdered By: Perri Ceja on 11-06-2023 Erythrocyte distribution width (RBC) [Ratio] 15.3 % Normal 11.9-15.3 [facility] Comment on above: Performed By: #### C BC, CMP, CK, CRP, ESR ####[address]#### PAPITO ####[facility] , Erythrocyte sedimentation ra te by Photometric methodOrdered By: Perri Ceja on 11-06-2023 ESR Photometric method (Bld) [Velocity] 49 mm/hr 0-19 [facility] Erythrocytes [#/volume] in B lood by Automated countOrdered By: Perri Ceja on 11-06-2023 RBC (Bld) [#/Vol] 4.60 10*6/uL Normal 3.60-5.00 [facility] Comment on above: Performed By: #### C BC, CMP, CK, CRP, ESR ####[address]#### PAPITO ####[facility] , Glucose [Mass/volume] in Ser um or PlasmaOrdered By: Perri Ceja on 11-06-2023 Glucose [Mass/Vol] 91 mg/dL Normal 70-100 [facility] Comment on above: ADA recommended refe rence rangeRandom Glucose Reference Range is dependent on time and content of last meal. Glucose of more than 200 mg/dL in a nonstressed, ambulatory subject supports the diagnosis of Diabetes Mellitus. Result Comment: Lovely barnes Glucose Reference Range is dependent on time and content of last meal. Glucose of more than 200 mg/dL in a nonstressed, ambulatory subject supports the diagnosis of Diabetes Mellitus. ADA recommended reference range Performed By: #### C BC, CMP, CK, CRP, ESR ####[address]#### PAPITO ####[facility] , Hematocrit [Volume Fraction] of Blood by Automated countOrdered By: Perri Ceja on 11-06-2023 Hematocrit (Bld) [Volume fraction] 38.9 % Normal 34.0-46.4 [facility] Comment on above: Performed By: #### C BC, CMP, CK, CRP, ESR ####[address]#### PAPITO ####[facility] , Hemoglobin [Mass/volume] in BloodOrdered By: Perri Ceja on 11-06-2023 Hemoglobin (Bld) [Mass/Vol] 13.1 g/dL Normal 11.8-15.4 [facility] Comment on above: Performed By: #### C BC, CMP, CK, CRP, ESR ####[address]#### PAPITO ####[facility] , Leukocytes [#/volume] correc noah for nucleated erythrocytes in Blood by Automated counOrdered By: Perri Ceja on 11-06-2023 WBC corrected for nucl RBC Auto (Bld) [#/Vol] 8.8 10*3/uL 3.8-11.6 [facility] Leukocytes [#/volume] in Blo od by Automated countOrdered By: Perri Ceja on 11-06-2023 WBC (Bld) [#/Vol] 8.8 10*3/uL Normal 3.8-11.6 [facility] Comment on above: Performed By: #### C BC, CMP, CK, CRP, ESR ####[place] [address] [place]#### PAPITO ####[facility] , Lymphocytes [#/volume] in Bl ood by Automated countOrdered By: Perri Ceja on 11-06-2023 Lymphocytes (Bld) [#/Vol] 1.5 10*3/uL Normal 1.00-4.8 [facility] Comment on above: Performed By: #### C BC, CMP, CK, CRP, ESR ####[address]#### PAPITO ####[facility] , Lymphocytes/100 leukocytes i n Blood by Automated countOrdered By: Perri Ceja on 11-06-2023 Lymphocytes/100 WBC (Bld) 17.6 % Normal . [facility] Comment on above: Performed By: #### C BC, CMP, CK, CRP, ESR ####[address]#### PAPITO ####[facility] , MCH [Entitic mass] by Automa noah countOrdered By: Perri Ceja on 11-06-2023 MCH (RBC) [Entitic mass] 28.4 pg Normal 24.7-34.3 [facility] Comment on above: Performed By: #### C BC, CMP, CK, CRP, ESR ####[address]#### PAPITO ####[facility] , MCHC Auto (RBC) [Mass/Vol]Or dered By: Perri Ceja on 11-06-2023 MCHC (RBC) [Mass/Vol] 33.6 g/dL 32.0-35.0 [facility] MCV [Entitic volume] by Auto mated countOrdered By: Perri Ceja on 11-06-2023 MCV (RBC) [Entitic vol] 84.6 fL Normal 80-100 [facility] Comment on above: Performed By: #### C BC, CMP, CK, CRP, ESR ####[address] [place] [address] [place]#### PAPITO ####[facility] , Neutrophils [#/volume] in Bl ood by Automated countOrdered By: Perri Ceja on 11-06-2023 Neutrophils (Bld) [#/Vol] 6.3 10*3/uL Normal 1.8-7.7 [facility] Comment on above: Performed By: #### C BC, CMP, CK, CRP, ESR ####[address]#### PAPITO ####[facility] , No Panel InformationOrdered By: Perri Ceja on 11-06-2023 Estimated GFR (CKD-EPI) 57.919 mL/Min [facility] Creatinine Clearance (Chem N/A [facility] Nucleated erythrocytes [Pres ence] in Blood by Automated countOrdered By: Perri Ceja on 11-06-2023 Nucleated RBC Auto Ql (Bld) 0.1 /100{WBC} 0-0.5 [facility] Platelet mean volume [Entiti c volume] in Blood by Automated countOrdered By: Perri Ceja on 11-06-2023 Platelet mean volume (Bld) [Entitic vol] 6.9 fL Normal 6.3-10.7 [facility] Comment on above: Performed By: #### C BC, CMP, CK, CRP, ESR ####[address]#### PAPITO ####[facility] , Platelets [#/volume] in Bloo d by Automated countOrdered By: Perri Ceja on 11-06-2023 Platelets (Bld) [#/Vol] 393 10*3/uL Normal 150-450 [facility] Comment on above: Performed By: #### C BC, CMP, CK, CRP, ESR ####[address]#### PAPITO ####[facility] , Potassium [Moles/volume] in Serum or PlasmaOrdered By: Perri Ceja on 11-06-2023 Potassium [Moles/Vol] 3.8 mmol/L Normal 3.5-5.1 [facility] Comment on above: Performed By: #### C BC, CMP, CK, CRP, ESR ####[address]#### PAPITO ####[facility] , Protein [Mass/volume] in Ser um or PlasmaOrdered By: Perri Ceja on 11-06-2023 Protein [Mass/Vol] 7.7 g/dL Normal 6.4-8.9 [facility] Comment on above: Performed By: #### C BC, CMP, CK, CRP, ESR ####[address]#### [place] ####[facility] , Serum globulin measurement b y calculation (mass/volume)Ordered By: Perri Ceja on 11-06-2023 Globulin (S) [Mass/Vol] 3.0 g/dL Normal [facility] Comment on above: Performed By: #### C BC, CMP, CK, CRP, ESR ####[address]#### [place] ####[facility] , Serum or plasma albumin/glob ulin mass ratioOrdered By: Perri Ceja on 11-06-2023 Albumin/Globulin [Mass ratio] 1.6 {ratio} Normal [facility] Comment on above: Performed By: #### C BC, CMP, CK, CRP, ESR ####[place] [address] [place]#### [place] ####[facility] , Serum or plasma anion gap de terminationOrdered By: Perri Ceja on 11-06-2023 Anion gap [Moles/Vol] 12.7 mmol/L Normal 6.0-15.0 [facility] Comment on above: Performed By: #### C BC, CMP, CK, CRP, ESR ####[facility] [id number] [place]#### [place]O ####[facility] , Sodium [Moles/volume] in Ser um or PlasmaOrdered By: Perri Ceja on 11-06-2023 Sodium [Moles/Vol] 139 mmol/L Normal 136-145 [facility] Comment on above: Performed By: #### C BC, CMP, CK, CRP, ESR ####[facility] [id number] [place]#### [place] ####[facility] , Urea nitrogen [Mass/volume] in Serum or PlasmaOrdered By: Perri Ceja on 11-06-2023 Urea nitrogen [Mass/Vol] 17 mg/dL Normal 7-25 [facility] Comment on above: Performed By: #### C BC, CMP, CK, CRP, ESR ####[facility] [place] [address] [place]#### [place] ####[facility] , PTH INTACTon 07-30-2022 PTH, Intact 107 pg/mL Critically high 15-65 [facility] Comment on above: Performed By: #### M G, URIC, RENAL #### [facility] [address] [address] [address] Hari Palmer FERRITINon 07-29-2022 Ferritin [Mass/Vol] 194.0 ng/mL Critically high 6.2-137.0 [facility] Comment on above: Performed By: #### M G, URIC, RENAL #### [facility] [address] [address] [address] Hari Palmer HEMOGRAM AND PLATELon 2021 Hematocrit (Bld) [Volume fraction] 32.8 % Critically low 36.0-48.0 [facility] Comment on above: Performed By: #### M G, URIC, RENAL #### [facility] [address] [address] [address] Hari Palmer Hemoglobin (Bld) [Mass/Vol] 10.8 g/dL Critically low 12.0-16.0 [facility] Comment on above: Performed By: #### M G, URIC, RENAL #### [facility] [address] [place] [address] Dr. Hari Palmer MCH (RBC) [Entitic mass] 31.7 pg Normal 26.7-34.0 [facility] Comment on above: Performed By: #### M G, URIC, RENAL #### [facility] [address] [place] [address] Dr. Hari Palmer MCHC (RBC) [Mass/Vol] 32.9 g/dL Normal 29.9-35.2 [facility] Comment on above: Performed By: #### M G, URIC, RENAL #### [facility] [address] [place] [address] Dr. Hari Palmer MCV (RBC) [Entitic vol] 96.2 fL Normal 81.0-99.0 [facility] Comment on above: Performed By: #### M G, URIC, RENAL #### [facility] [address] [place] [address] Dr. Hari Palmer PLT 297 103/ul Normal 150-450 [facility] Comment on above: Performed By: #### M G, URIC, RENAL #### [facility] [address] [place] [address] Dr. Hari Palmer RBC 3.41 106/ul Critically low 4.20-5.40 [facility] Comment on above: Performed By: #### M G, URIC, RENAL #### [facility] [address] [place] [address] Dr. Hari Palmer WBC 7.1 103/ul Normal 4.0-11.0 [facility] Comment on above: Performed By: #### M G, URIC, RENAL #### [facility] [address] [place] [address] Dr. Hari Palmer IRON AND TIBCon 07-29-2022 % SATURATION 19.0 % Normal [facility] Comment on above: Performed By: #### M G, URIC, RENAL #### [facility] [address] [place] [address] Dr. Hari Palmer Iron [Mass/Vol] 48.0 ug/dL Critically low 50.0-170.0 [facility] Comment on above: Performed By: #### M G, URIC, RENAL #### [facility] [address] [place] [address] Dr. Hari Palmer TIBC DIRECT 252.0 ug/dL Normal 250.0-450.0 [facility] Comment on above: Performed By: #### M G, URIC, RENAL #### [facility] [address] [place] [address] Dr. Hari Palmer MAGNESIUMon 07-29-2022 Magnesium [Mass/Vol] 2.0 mg/dL Normal 1.8-2.4 [facility] Comment on above: Performed By: #### M G, URIC, RENAL #### [facility] [address] [place] [address] Dr. Hari Palmer RENAL FUNCTION PANELon 07-29 Albumin [Mass/Vol] 3.6 g/dL Normal 3.4-5.0 [facility] Comment on above: Performed By: #### M G, URIC, RENAL #### [facility] [address] [place] [address] Dr. Hari Palmer Calcium [Mass/Vol] 8.7 mg/dL Normal 8.5-10.1 [facility] Comment on above: Performed By: #### M G, URIC, RENAL #### [facility] [address] [place] [address] Dr. Hari Palmer Chloride [Moles/Vol] 104 mmol/L Normal 98-107 [facility] Comment on above: Performed By: #### M G, URIC, RENAL #### [facility] [address] [place] [address] Dr. Hari Palmer CO2 [Moles/Vol] 21.8 mmol/L Normal 21.0-32.0 [facility] Comment on above: Performed By: #### M G, URIC, RENAL #### [facility] [address] [place] [address] Dr. Hari Palmer Creatinine [Mass/Vol] 3.83 mg/dL Critically high 0.55-1.02 [facility] Comment on above: Performed By: #### M G, URIC, RENAL #### [facility] [address] [place] [address] Dr. Hari Palmer EGFR-AF S[place] 15 mL/min/1.73m2 Critically low >=60 [facility] Comment on above: Performed By: #### M G, URIC, RENAL #### [facility] [address] [place] [address] Dr. Hari Palmer EGFR-NON AF [place] 13 mL/min/1.73m2 Critically low >=60 [facility] Comment on above: Performed By: #### M G, URIC, RENAL #### [facility] [address] [place] [address] Dr. Hari Palmer Glucose [Mass/Vol] 108 mg/dL Critically high 74-106 [facility] Comment on above: Performed By: #### M G, URIC, RENAL #### [facility] [address] [place] [address] Dr. Hari Palmer Phosphate [Mass/Vol] 5.4 mg/dL Critically high 2.6-4.7 [facility] Comment on above: Performed By: #### M G, URIC, RENAL #### [facility] [address] [place] [address] Dr. Hari Palmer Potassium [Moles/Vol] 3.9 mmol/L Normal 3.5-5.1 [facility] Comment on above: Performed By: #### M G, URIC, RENAL #### [facility] [address] [place] [address] Dr. Hari Palmer Sodium [Moles/Vol] 137 mmol/L Normal 136-145 [facility] Comment on above: Performed By: #### M G, URIC, RENAL #### [facility] [address] [place] [address] Dr. Hari Palmer Urea nitrogen [Mass/Vol] 47.0 mg/dL Critically high 7.0-18.0 [facility] Comment on above: Performed By: #### M G, URIC, RENAL #### [facility] [address] [place] [address] Dr. Hari Palmer URIC ACID SERUMon 07-29-2022 Urate [Mass/Vol] 6.3 mg/dL Critically high 2.6-6.0 [facility] Comment on above: Performed By: #### M G, URIC, RENAL #### [facility] [address] [place] [address] Dr. Hari Palmer URINE T PROTEIN CREAT RATIOo n 07-29-2022 Protein (U) [Mass/Vol] 29.7 mg/dL Critically high <=12.0 [facility] Comment on above: Performed By: #### M G, URIC, RENAL #### [facility] [address] [place] [address] Dr. Hari Palmer UR PROT CREAT RAT 0.56 Normal [facility] Comment on above: Performed By: #### M Edy, URIC, RENAL #### [facility] [address] [place] [address] Dr. Hari Palmer URINE CREAT 53.35 mg/dL Normal 20.00-300.00 [facility] Comment on above: Performed By: #### M G, URIC, RENAL #### [facility] [address] [place] [address] Dr. Hari Palmer VITAMIN D 25 OHon 07-29-2022 VIT D 25-OH 38.8 ng/mL Normal [facility] Comment on above: Performed By: #### M G, URIC, RENAL #### [facility] [address] [place] [address] Dr. Hari Palmer VIT D RANGES SEE BELOW Normal [facility] Comment on above: Result Comment: <20 ng/mL Vit D deficient 20 - <30 ng/mL Vit D insufficient 30 - 100 ng/mL Vit D sufficient >100 ng/mL Potential Toxicity Performed By: #### M G, URIC, RENAL #### [facility] [address] [place] [address] Dr. Hari Palmer Albumin [Mass/volume] in Ser um or PlasmaOrdered By: Stanley Forman on 06-20-2022 Albumin [Mass/Vol] 3.9 g/dL 3.2-5.5 [facility] Basophils Auto (Bld) [#/Vol] Ordered By: Stanley Forman on 06-20-2022 Basophils (Bld) [#/Vol] 0.1 10*3/uL 0.0-0.2 [facility] Basophils/100 WBC Auto (Bld) Ordered By: Stanley Forman on 06-20-2022 Basophils/100 WBC (Bld) 0.7 % . F [facility] Blood hemoglobin measurement (mass/volume)Ordered By: Stanley Forman on 06-20-2022 Hemoglobin (Bld) [Mass/Vol] 10.8 g/dL 11.8-15.4 [facility] Blood leukocytes automated c ount (number/volume)Ordered By: Stanley Forman on 06-20-2022 WBC (Bld) [#/Vol] 11.8 10*3/uL 4.5-11.0 [facility] C reactive protein [Mass/vol ume] in Serum or PlasmaOrdered By: Stanley Forman on 06-20-2022 CRP [Mass/Vol] 5.2 mg/dL 0.0-1.0 [facility] Creatinine and Glomerular fi ltration rate.predicted panel (S/P/Bld)Ordered By: Stanley Forman on 06-20-2022 Creatinine [Mass/Vol] 4.49 mg/dL 0.44-1.03 [facility] Eosinophils Auto (Bld) [#/Vo l]Ordered By: Stanley Forman on 06-20-2022 Eosinophils (Bld) [#/Vol] 0.4 10*3/uL 0.0-0.45 [facility] Eosinophils/100 WBC Auto (Bl d)Ordered By: Stanley Forman on 06-20-2022 Eosinophils/100 WBC (Bld) 3.2 % . [facility] Erythrocyte distribution wid th Auto (RBC) [Ratio]Ordered By: Stanley Forman on 06-20-2022 Erythrocyte distribution width (RBC) [Ratio] 14.0 % 11.9-15.3 [facility] Erythrocyte sedimentation ra te by Photometric methodOrdered By: Stanley Forman on 06-20-2022 ESR Photometric method (Bld) [Velocity] 67 mm/hr 0-19 [facility] Estimated glomerular filtrat ion rate (GFR) non- AmericanOrdered By: Stanley Forman on 06-20-2022 GFR/1.73 sq M.predicted among non-blacks MDRD (S/P/Bld) [Vol rate/Area] 11 mL/Min [facility] Globulin Calc (S) [Mass/Vol] Ordered By: Stanley Forman on 06-20-2022 Globulin (S) [Mass/Vol] 3.5 g/dL F [facility] Hematocrit Auto (Bld) [Volum e fraction]Ordered By: Stanley Forman on 06-20-2022 Hematocrit (Bld) [Volume fraction] 33.1 % 34.0-46.4 [facility] - Hematology and Cell countsOrdered By: Stanley Forman on 06-20-2022 Nucleated RBC/100 WBC (Bld) [Ratio] 0.0 % 0-0.5 [facility] Lymphocytes Auto (Bld) [#/Vo l]Ordered By: Stanley Forman on 06-20-2022 Lymphocytes (Bld) [#/Vol] 1.5 10*3/uL 1.00-4.8 [facility] Lymphocytes/100 WBC Auto (Bl d)Ordered By: Stanley Forman on 06-20-2022 Lymphocytes/100 WBC (Bld) 12.3 % . [facility] MCH Auto (RBC) [Entitic mass ]Ordered By: Stanley Forman on 06-20-2022 MCH (RBC) [Entitic mass] 31.1 pg 24.7-34.3 [facility] MCHC Auto (RBC) [Mass/Vol]Or dered By: Stanley Forman on 06-20-2022 MCHC (RBC) [Mass/Vol] 32.5 g/dL 32.0-35.0 [facility] MCV Auto (RBC) [Entitic vol] Ordered By: Stanley Forman on 06-20-2022 MCV (RBC) [Entitic vol] 95.6 fL 80-100 F [facility] Monocytes Auto (Bld) [#/Vol] Ordered By: Stanley Forman on 06-20-2022 Monocytes (Bld) [#/Vol] 0.5 10*3/uL 0.0-0.8 [facility] Monocytes/100 WBC Auto (Bld) Ordered By: Stanley Forman on 06-20-2022 Monocytes/100 WBC (Bld) 4.1 % . F [facility] Neutrophils Auto (Bld) [#/Vo l]Ordered By: Stanley Forman on 06-20-2022 Neutrophils (Bld) [#/Vol] 9.4 10*3/uL 1.8-7.7 [facility] Neutrophils/100 WBC Auto (Bl d)Ordered By: Stanley Forman on 06-20-2022 Neutrophils/100 WBC (Bld) 79.7 % . [facility] No Panel InformationOrdered By: Stanley Forman on 06-20-2022 Estimated GFR () 13 mL/Min [facility] Comment on above: GFR estimated refere nce range: According to KDOQI guidelines, <60 ml/min/1.73m2 is sufficient to diagnose a patient with chronic kidney disease. Pharmacy Creatinine Clearance (Chem 16.48 [facility] Platelet mean volume Auto (B ld) [Entitic vol]Ordered By: Stanley Forman on 06-20-2022 Platelet mean volume (Bld) [Entitic vol] 7.0 fL 6.3-10.7 [facility] Platelets Auto (Bld) [#/Vol] Ordered By: Stanley Forman on 06-20-2022 Platelets (Bld) [#/Vol] 287 10*3/uL 150-450 [facility] Protein [Mass/volume] in Ser um or PlasmaOrdered By: Stanley Forman on 06-20-2022 Protein [Mass/Vol] 7.4 g/dL 6.1-7.9 [facility] RBC Auto (Bld) [#/Vol]Ordere d By: Stanley Forman on 06-20-2022 RBC (Bld) [#/Vol] 3.46 10*6/uL 3.60-5.00 [facility] Serum or plasma alanine cesar otransferase measurement without P-5'-P (enzymatic activiOrdered By: Stanley Forman on 06-20-2022 ALT No additional P-5'-P [Catalytic activity/Vol] 11 U/L 10-60 [facility] Serum or plasma albumin/glob ulin mass ratioOrdered By: Stanley Forman on 06-20-2022 Albumin/Globulin [Mass ratio] 1.1 {ratio} [facility] Serum or plasma alkaline gina sphatase measurement (enzymatic activity/volume)Ordered By: Stanley Forman on 06-20-2022 ALP [Catalytic activity/Vol] 82 U/L 32-92 [facility] Serum or plasma anion gap de terminationOrdered By: Stanley Forman on 06-20-2022 Anion gap [Moles/Vol] 16.2 mmol/L 6.0-15.0 [facility] Serum or plasma aspartate am inotransferase measurement (enzymatic activity/volume)Ordered By: Stanley Forman on 06-20-2022 AST [Catalytic activity/Vol] 15 U/L 10-42 [facility] Serum or plasma calcium ge urement (mass/volume)Ordered By: Stanley Forman on 06-20-2022 Calcium [Mass/Vol] 9.3 mg/dL 8.2-10.2 [facility] Serum or plasma chloride lee surement (moles/volume)Ordered By: Stanley Forman on 06-20-2022 Chloride [Moles/Vol] 103 mmol/L 95-114 [facility] Serum or plasma glucose ge urement (mass/volume)Ordered By: Stanley Forman on 06-20-2022 Glucose [Mass/Vol] 75 mg/dL 70-100 [facility] Comment on above: ADA recommended refe rence rangeRandom Glucose Reference Range is dependent on time and content of last meal. Glucose of more than 200 mg/dL in a nonstressed, ambulatory subject supports the diagnosis of Diabetes Mellitus. Serum or plasma potassium me asurement (moles/volume)Ordered By: Stanley Forman on 06-20-2022 Potassium [Moles/Vol] 4.3 mmol/L 3.5-5.1 [facility] Serum or plasma sodium measu rement (moles/volume)Ordered By: Stanley Forman on 06-20-2022 Sodium [Moles/Vol] 135 mmol/L 136-146 [facility] Serum or plasma total biliru bin measurement (mass/volume)Ordered By: Stanley Forman on 06-20-2022 Bilirubin [Mass/Vol] 0.3 mg/dL 0.3-1.2 [facility] Serum or plasma total carbon dioxide measurement (moles/volume)Ordered By: Stanley Forman on 06-20-2022 CO2 [Moles/Vol] 20.1 mmol/L 22.0-30.0 [facility] Serum or plasma urea nitroge n measurement (mass/volume)Ordered By: Stanley Forman on 06-20-2022 Urea nitrogen [Mass/Vol] 42 mg/dL 06-28 [facility] COVID-19 Positive/NegativeOr dered By: Jesus Parham on 06-14-2022 SARS-CoV-2 (COVID-19) N gene AMBERLY+probe Ql (Resp) Negative Negative [facility] Comment on above: Testing for SARS-CoV -2 by RT-PCR This test was developed and its performance characteristics determined by [employer]) and validated at the [facility]. This test has not been FDA [...] developed and its performance characteristics determined by [employer] and validated at the [facility]. This test has not been FDA [...] Antigen (CA) 125 10.8 U/mL Normal 0.0-38.1 [facility] Comment on above: Result Comment: [employer] Electrochemiluminescence Immunoassay (ECLIA) . Values obtained with different assay methods or kits cannot be used interchangeably. Results cannot be interpreted as absolute evidence of the presence or absence of malignant disease. Performed By: #### M G, URIC, RENAL #### [facility] [address] [address] [address] Hari Palmer CEAon 06-08-2022 CEA 0.9 ng/mL Normal 0.0-4.7 [facility] Comment on above: Result Comment: Nons mokers <3.9 Smokers <5.6 . [employer] Electrochemiluminescence Immunoassay (ECLIA) . Values obtained with different assay methods or kits cannot be used interchangeably. Results cannot be interpreted as absolute evidence of the presence or absence of malignant disease. Performed By: #### C EA. #### [facility] [address] [address] [address] Hari Palmer Basophils Auto (Bld) [#/Vol] Ordered By: Jesus Parham on 06-05-2022 Basophils (Bld) [#/Vol] 0.0 10*3/uL 0.0-0.2 [facility] Basophils/100 WBC Auto (Bld) Ordered By: Jesus Parham on 06-05-2022 Basophils/100 WBC (Bld) 0.3 % . F [facility] Blood hemoglobin measurement (mass/volume)Ordered By: Jesus Parham on 06-05-2022 Hemoglobin (Bld) [Mass/Vol] 12.0 g/dL 11.8-15.4 [facility] Blood leukocytes automated c ount (number/volume)Ordered By: Jesus Parham on 06-05-2022 WBC (Bld) [#/Vol] 8.5 10*3/uL 4.5-11.0 [facility] Creatinine and Glomerular fi ltration rate.predicted panel (S/P/Bld)Ordered By: Jesus Parham on 06-05-2022 Creatinine [Mass/Vol] 3.52 mg/dL 0.44-1.03 [facility] Eosinophils Auto (Bld) [#/Vo l]Ordered By: Jesus Parham on 06-05-2022 Eosinophils (Bld) [#/Vol] 0.2 10*3/uL 0.0-0.45 [facility] Eosinophils/100 WBC Auto (Bl d)Ordered By: Jesus Parham on 06-05-2022 Eosinophils/100 WBC (Bld) 2.7 % . [facility] Erythrocyte distribution wid th Auto (RBC) [Ratio]Ordered By: Jesus Parham on 06-05-2022 Erythrocyte distribution width (RBC) [Ratio] 14.2 % 11.9-15.3 [facility] Estimated glomerular filtrat ion rate (GFR) non- AmericanOrdered By: Jesus Parham on 06-05-2022 GFR/1.73 sq M.predicted among non-blacks MDRD (S/P/Bld) [Vol rate/Area] 14 mL/Min [facility] Hematocrit Auto (Bld) [Volum e fraction]Ordered By: Jesus Parham on 06-05-2022 Hematocrit (Bld) [Volume fraction] 35.8 % 34.0-46.4 [facility] - Hematology and Cell countsOrdered By: Jesus Parham on 06-05-2022 Nucleated RBC/100 WBC (Bld) [Ratio] 0.1 % 0-0.5 [facility] Lymphocytes Auto (Bld) [#/Vo l]Ordered By: Jesus Parham on 06-05-2022 Lymphocytes (Bld) [#/Vol] 1.6 10*3/uL 1.00-4.8 [facility] Lymphocytes/100 WBC Auto (Bl d)Ordered By: Jesus Parham on 06-05-2022 Lymphocytes/100 WBC (Bld) 19.3 % . [facility] MCH Auto (RBC) [Entitic mass ]Ordered By: Jesus Parham on 06-05-2022 MCH (RBC) [Entitic mass] 31.5 pg 24.7-34.3 [facility] MCHC Auto (RBC) [Mass/Vol]Or dered By: Jesus Parham on 06-05-2022 MCHC (RBC) [Mass/Vol] 33.3 g/dL 32.0-35.0 [facility] MCV Auto (RBC) [Entitic vol] Ordered By: Jesus Parham on 06-05-2022 MCV (RBC) [Entitic vol] 94.4 fL 80-100 F [facility] Monocytes Auto (Bld) [#/Vol] Ordered By: Jesus Parham on 06-05-2022 Monocytes (Bld) [#/Vol] 0.3 10*3/uL 0.0-0.8 [facility] Monocytes/100 WBC Auto (Bld) Ordered By: Jesus Parham on 06-05-2022 Monocytes/100 WBC (Bld) 3.9 % . F [facility] Neutrophils Auto (Bld) [#/Vo l]Ordered By: Jesus Parham on 06-05-2022 Neutrophils (Bld) [#/Vol] 6.2 10*3/uL 1.8-7.7 [facility] Neutrophils/100 WBC Auto (Bl d)Ordered By: Jesus Parham on 06-05-2022 Neutrophils/100 WBC (Bld) 73.8 % . [facility] No Panel InformationOrdered By: Jesus Parham on 06-05-2022 Estimated GFR () 17 mL/Min [facility] Comment on above: GFR estimated refere nce range: According to KDOQI guidelines, <60 ml/min/1.73m2 is sufficient to diagnose a patient with chronic kidney disease. Pharmacy Creatinine Clearance (Chem N/A [facility] Platelet mean volume Auto (B ld) [Entitic vol]Ordered By: Jesus Parham on 06-05-2022 Platelet mean volume (Bld) [Entitic vol] 7.3 fL 6.3-10.7 [facility] Platelets Auto (Bld) [#/Vol] Ordered By: Jesus Parham on 06-05-2022 Platelets (Bld) [#/Vol] 312 10*3/uL 150-450 [facility] RBC Auto (Bld) [#/Vol]Ordere d By: Jesus Parham on 06-05-2022 RBC (Bld) [#/Vol] 3.80 10*6/uL 3.60-5.00 [facility] Serum or plasma anion gap de terminationOrdered By: Jesus Parham on 06-05-2022 Anion gap [Moles/Vol] 15.1 mmol/L 6.0-15.0 [facility] Serum or plasma calcium ge urement (mass/volume)Ordered By: Jesus Parham on 06-05-2022 Calcium [Mass/Vol] 9.5 mg/dL 8.2-10.2 [facility] Serum or plasma chloride lee surement (moles/volume)Ordered By: Jesus Parham on 06-05-2022 Chloride [Moles/Vol] 106 mmol/L 95-114 [facility] Serum or plasma glucose ge urement (mass/volume)Ordered By: Jesus Parham on 06-05-2022 Glucose [Mass/Vol] 91 mg/dL 70-100 [facility] Comment on above: ADA recommended refe rence [...] on 06-05-2022 Potassium [Moles/Vol] 4.4 mmol/L 3.5-5.1 [facility] Serum or plasma sodium measu rement (moles/volume)Ordered By: Jesus Parham on 06-05-2022 Sodium [Moles/Vol] 137 mmol/L 136-146 [facility] Serum or plasma total carbon dioxide measurement (moles/volume)Ordered By: Jesus Parham on 06-05-2022 CO2 [Moles/Vol] 20.3 mmol/L 22.0-30.0 [facility] Serum or plasma urea nitroge n measurement (mass/volume)Ordered By: Jesus Parham on 06-05-2022 Urea nitrogen [Mass/Vol] 38 mg/dL 06-28 [facility] PTH INTACTon 04-29-2022 PTH, Intact 191 pg/mL Critically high 15-65 [facility] Comment on above: Performed By: #### M G, URIC, RENAL #### [facility] [address] [address] [address] Hari Palmer VIT D 25-OH LABCORPon 2021 Vitamin D, 25-Hydroxy 33.6 ng/mL Normal 30.0-100.0 [facility] Comment on above: Result Comment: Ning min D deficiency has been defined by the [place] [employer] and an Endocrine Society practice guideline as a level of serum 25-OH vitamin D less than 20 ng/mL (1,2). The Endocrine Society went on to further define vitamin D insufficiency as a level between 21 and 29 ng/mL (2). 1. IOM ([place] [employer]). 2010. Dietary reference intakes for calcium and D. [place]: The National Academies Press. 2. Chantel MF, Landen [place], Eliseo STEPHENS, et al. Evaluation, treatment, and prevention of vitamin D deficiency: an Endocrine Society clinical practice guideline. JCEM. 2010; 96(7):1911-30. Performed By: #### M G, URIC, RENAL #### [facility] [address], [place] [address] Dr. Hari Palmer ABO AND RH TYPEon 04-27-2022 ABO and Rh group Nom (Bld) ABO Rh Typing O Rh Positive Normal [facility] Comment on above: Performed By: #### M G, URIC, RENAL #### [facility] [address], [place] [address] Dr. Hari Palmer FERRITINon 04-27-2022 Ferritin [Mass/Vol] 273.0 ng/mL Critically high 6.2-137.0 [facility] Comment on above: Performed By: #### M G, URIC, RENAL #### [facility] [address] [place] [address] Dr. Hari Palmer HEMOGRAM AND PLATELon 2021 Hematocrit (Bld) [Volume fraction] 33.9 % Critically low 36.0-48.0 [facility] Comment on above: Performed By: #### M G, URIC, RENAL #### [facility] [address] [place] [address] Dr. Hari Palmer Hemoglobin (Bld) [Mass/Vol] 11.4 g/dL Critically low 12.0-16.0 [facility] Comment on above: Performed By: #### M G, URIC, RENAL #### [facility] [address] [place] [address] Dr. Hari Palmer MCH (RBC) [Entitic mass] 31.7 pg Normal 26.7-34.0 [facility] Comment on above: Performed By: #### M G, URIC, RENAL #### [facility] [address] [place] [address] Dr. Hari Palmer MCHC (RBC) [Mass/Vol] 33.6 g/dL Normal 29.9-35.2 [facility] Comment on above: Performed By: #### M G, URIC, RENAL #### [facility] [address] [place] [address] Dr. Hari Palmer MCV (RBC) [Entitic vol] 94.2 fL Normal 81.0-99.0 [facility] Comment on above: Performed By: #### M G, URIC, RENAL #### [facility] [address] [place] [address] Dr. Hari Palmer PLT 333 103/ul Normal 150-450 [facility] Comment on above: Performed By: #### M G, URIC, RENAL #### [facility] [address] [place] [address] Dr. Hari Palmer RBC 3.60 106/ul Critically low 4.20-5.40 [facility] Comment on above: Performed By: #### M G, URIC, RENAL #### [facility] [address] [place] [address] Dr. Hari Palmer WBC 9.7 103/ul Normal 4.0-11.0 [facility] Comment on above: Performed By: #### M G, URIC, RENAL #### [facility] [address] [place] [address] Dr. Hari Palmer IRON AND TIBCon 04-27-2022 % SATURATION 20.1 % Normal [facility] Comment on above: Performed By: #### M G, URIC, RENAL #### [facility] [address] [place] [address] Dr. Hari Palmer Iron [Mass/Vol] 57.0 ug/dL Normal 50.0-170.0 [facility] Comment on above: Performed By: #### M G, URIC, RENAL #### [facility] [address] [place] [address] Dr. Hari Palmer TIBC DIRECT 283.0 ug/dL Normal 250.0-450.0 [facility] Comment on above: Performed By: #### M G, URIC, RENAL #### [facility] [address] [place] [address] Dr. Hari Palmer MAGNESIUMon 04-27-2022 Magnesium [Mass/Vol] 2.1 mg/dL Normal 1.8-2.4 [facility] Comment on above: Performed By: #### R ENAL, URIC, MG #### [facility] [address] [place] [address] Dr. Hari Palmer RENAL FUNCTION PANELon 04-27 Albumin [Mass/Vol] 3.6 g/dL Normal 3.4-5.0 [facility] Comment on above: Performed By: #### R ENAL, URIC, MG #### [facility] [address] [place] [address] Dr. Hari Palmer Calcium [Mass/Vol] 9.0 mg/dL Normal 8.5-10.1 [facility] Comment on above: Performed By: #### R ENAL, URIC, MG #### [facility] [address] [place] [address] Dr. Hari Palmer Chloride [Moles/Vol] 104 mmol/L Normal 98-107 [facility] Comment on above: Performed By: #### R ENAL, URIC, MG #### [facility] [address] [place] [address] Dr. Hari Palmer CO2 [Moles/Vol] 23.0 mmol/L Normal 21.0-32.0 [facility] Comment on above: Performed By: #### R ENAL, URIC, MG #### [facility] [address] [place] [address] Dr. Hari Palmer Creatinine [Mass/Vol] 3.38 mg/dL Critically high 0.55-1.02 [facility] Comment on above: Performed By: #### R ENAL, URIC, MG #### [facility] [address] [place] [address] Dr. Hari Palmer EGFR-AF [place] 18 mL/min/1.73m2 Critically low >=60 [facility] Comment on above: Performed By: #### R ENAL, URIC, MG #### [facility] [address] [place] [address] Dr. Hari Palmer EGFR-NON AF [place] 15 mL/min/1.73m2 Critically low >=60 [facility] Comment on above: Performed By: #### R ENAL, URIC, MG #### [facility] [address] [place] [address] Dr. Hari Palmer Glucose [Mass/Vol] 113 mg/dL Critically high 74-106 [facility] Comment on above: Performed By: #### R ENAL, URIC, MG #### [facility] [address] [place] [address] Dr. Hari Palmer Phosphate [Mass/Vol] 4.4 mg/dL Normal 2.6-4.7 [facility] Comment on above: Performed By: #### R ENAL, URIC, MG #### [facility] [address] [place] [address] Dr. Hari Palmer Potassium [Moles/Vol] 4.0 mmol/L Normal 3.5-5.1 [facility] Comment on above: Performed By: #### R ENAL, URIC, MG #### [facility] [address] [place] [address] Dr. Hari Palmer Sodium [Moles/Vol] 137 mmol/L Normal 136-145 [facility] Comment on above: Performed By: #### R ENAL, URIC, MG #### [facility] [address] [address] [address] Hari Palmer Urea nitrogen [Mass/Vol] 44.0 mg/dL Critically high 7.0-18.0 [facility] Comment on above: Performed By: #### R ENAL, URIC, MG #### [facility] [address] [place] [address] Dr. Hari Palmer URIC ACID SERUMon 04-27-2022 Urate [Mass/Vol] 6.6 mg/dL Critically high 2.6-6.0 [facility] Comment on above: Performed By: #### R ENAL, URIC, MG #### [facility] [address] [place] [address] Dr. Hari Palmer URINE T PROTEIN CREAT RATIOo n 04-27-2022 Protein (U) [Mass/Vol] 31.4 mg/dL Critically high <=12.0 [facility] Comment on above: Performed By: #### M G, URIC, RENAL #### [facility] [address] [place] [address] Dr. Hari Palmer UR PROT CREAT RAT 0.55 Normal [facility] Comment on above: Performed By: #### M G, URIC, RENAL #### [facility] [address] [place] [address] Dr. Hari Palmer URINE CREAT 57.50 mg/dL Normal 20.00-300.00 [facility] Comment on above: Performed By: #### M G, URIC, RENAL #### [facility] [address] [place] [address] Dr. Hari Palmer ECHOCARDIO M/2D COMPLETEon 0 03-29-2022 ECHOCARDIO M/2D COMPLETE Patient: MANDEEP PURI Exam Date: 03/29/2022 : 1975 Gender:F Ordering : HAIDER FRENCH M.D. Admission #: [id number] Family : Order #: [id number] CLICK HERE TO VIEW EXAM ECHOCARDIOGRAM REPORT [...] Area(A4C): 17.00 cm2 Left Atrium Systolic Volume(A2C): 48555 mm3 Left Atrium Systolic Volume(A4C): 16721 mm3 Mitral Valve MV E to A Ratio: 0.80 Deceleration Loíza: 3210 mm/s2 Mitral Valve A-Wave Peak Velocity: [...] Alonzo M.D. on 04/01/2022 at 12:33 Normal [facility] COVID-19 SOFIAOrdered By: Mary Beth Jones on 03-28-2022 SARS-CoV+SARS-CoV-2 (COVID-19) Ag IA.rapid Ql (Resp) Negative Negative [facility] Comment on above: This is a duplicate Ada SARS Antigen (GLORIA) result to be used for statistical tracking purpose only. No Panel InformationOrdered By: Shabbir Jones on 03-28-2022 SARS Antigen (LFIA) [facility] BLOOD TYPE AND RHon 02-13-20 22 ABO INTERPRETATION O Normal [facility] Comment on above: Performed By: #### 3 1397, 58245, 40445, 02955, 99953 #### [facility] [place] [address] [facility] [place] [address], [place] RH INTERPRETATION Positive Normal [facility] Comment on above: Performed By: #### 3 1397, 15811, 93330, 78122, 35931 #### [facility] [place] [address] BNP (B-TYPE NATRIURETIC PEPT JOEL)on 02-12-2022 Natriuretic peptide B (Bld) [Mass/Vol] 10 pg/mL Normal 0-[address] [facility] Comment on above: Result Comment: Give n the appropriate clinical setting a BNP result of >100 pg/mL indicates congestive heart failure. Performed By: #### 8 5123, 22870 #### [facility] [place] [address] CBC W/DIFFon 02-12-2022 ABS IMM GRANS 0.2 10*3/uL Normal 0.0-0.[address] [facility] Comment on above: Performed By: #### 3 1397, 17513, 31235, 47646, 70205 #### [facility] [place] [address] ABS NEUTROPHILS 7.8 10*3/uL High 1.6-7.[address] [facility] Comment on above: Performed By: #### 3 1397, 81352, 95185, 23710, 60667 #### [facility] [place] [address] Basophils (Bld) [#/Vol] 0.1 10*3/uL Normal 0.0-0.[address] [facility] Comment on above: Performed By: #### 3 1397, 62590, 79514, 46333, 63780 #### [facility] [place] [address] Basophils/100 WBC (Bld) 0.6 % Normal 0.0-1.0 [facility] Comment on above: Performed By: #### 3 1397, 56142, 17502, 51655, 29544 #### [facility] [place] [address] Eosinophils (Bld) [#/Vol] 0.3 10*3/uL Normal 0.0-0.[address] [facility] Comment on above: Performed By: #### 3 1397, 33889, 34637, 55693, 76273 #### [facility] [place] [address] Eosinophils/100 WBC (Bld) 2.5 % Normal 0.0-6.[address] [facility] Comment on above: Performed By: #### 3 1397, 73147, 93479, 07137, 73376 #### [facility] [place] [address] Erythrocyte distribution width (RBC) [Ratio] 13.6 % Normal 11.5-15.[address] [facility] Comment on above: Performed By: #### 3 1397, 61772, 82876, 09132, 53234 #### [facility] [place] [address] Hematocrit (Bld) [Volume fraction] 34.5 % Low 36.0-45.[address] [facility] Comment on above: Performed By: #### 3 1397, 08045, 78853, 64692, 41853 #### [facility] [place] [address] [facility] [address] Hemoglobin (Bld) [Mass/Vol] 11.3 g/dL Low 12.0-15.[address] [facility] Comment on above: Performed By: #### 3 1397, 80653, 90530, 50266, 60422 #### [facility] [place] [address] [facility] [address] IMMATURE GRANS 1.4 % High 0.0-1.[address] [facility] Comment on above: Performed By: #### 3 1397, 29440, 53620, 90564, 38636 #### [facility] [place] [address] [facility]. [address] Lymphocytes (Bld) [#/Vol] 2.0 10*3/uL Normal 1.2-4.[address] [facility] Comment on above: Performed By: #### 3 1397, 02474, 62771, 16550, 19857 #### [facility] [place] [address] [place] [address], [facility] Lymphocytes/100 WBC (Bld) 18.6 % Low 20.0-45.[address] [facility] Comment on above: Performed By: #### 3 1397, 34723, 86151, 17549, 20342 #### [facility] [place] [address] [place] [address], [facility] MCH (RBC) [Entitic mass] 31.3 pg Normal 27.0-33.[address] [facility] Comment on above: Performed By: #### 3 1397, 88618, 36474, 78243, 21209 #### [facility] [place] [address] [place] [address], [facility] MCHC (RBC) [Mass/Vol] 32.8 g/dL Normal 32.0-35.[address] [facility] Comment on above: Performed By: #### 3 1397, 80640, 79023, 44321, 96832 #### [facility] [place] [address] [place] [address], [facility] MCV (RBC) [Entitic vol] 95.6 fL Normal 82.0-98.0 [facility] Comment on above: Performed By: #### 3 1397, 29643, 58069, 46724, 01165 #### [facility] [place] [address] [place] [address], [facility] Monocytes (Bld) [#/Vol] 0.5 10*3/uL Normal 0.1-1.[address] [facility] Comment on above: Performed By: #### 3 1397, 36534, 33867, 08224, 75840 #### [facility] [place] [address] [facility] [place] [id number], [facility] MONOS 4.9 % Low 5.0-12.[address] [facility] Comment on above: Performed By: #### 3 1397, 92021, 92258, 50504, 74446 #### [facility] [place] [address] [place] [address], [facility] Neutrophils/100 WBC (Bld) 72.0 % Normal 40.0-72.[address] [facility] Comment on above: Performed By: #### 3 1397, 99626, 30386, 79328, 47545 #### [facility] [place] [address] [facility] [place] [address], [facility] Nucleated RBC/100 WBC (Bld) [Ratio] 0 % Normal 0-[address] [facility] Comment on above: Performed By: #### 3 1397, 76212, 58323, 03873, 42127 #### [facility] [place] [address] [facility] [place] [address], [facility] PLAT CNT 315 10*3/uL Normal 150-[address] [facility] Comment on above: Performed By: #### 3 1397, 83018, 41954, 48989, 35160 #### [facility] [place] [address] [facility] [place] [address], [facility] RBC (Bld) [#/Vol] 3.61 10*6/uL Low 3.80-5.[address] [facility] Comment on above: Performed By: #### 3 1397, 92447, 77444, 43340, 56843 #### [facility] [place] [address] [facility] [place] [address], [facility] WBC (Bld) [#/Vol] 10.78 10*3/uL High 4.00-10.[address] [facility] Comment on above: Performed By: #### 3 1397, 21286, 89541, 92076, 56299 #### [facility] [place] [address] [facility] [place] [address], [facility] CHEST AND LATERALon 02-13-[address] [facility] Department of Radiology [address] [place] [phone] == Patient Name: MANDEEP PURI : 1975 [...] pathology. Electronically signed: Royal Dominguez. Transcribed by: [email or web address], User Resident: Electronically Signed by: ROYAL DOMINGUEZ @ 02/13/2022 11:[address] [facility] CMV IGG BLOODon 02-12-2022 CMV IGG 3.[address] [facility] Comment on above: Result Comment: NORM AL RANGES: < OR = 0.9O NEGATIVE ; NO DETECTABLE IgG ANTIBODY TO CMV 0.91 - 1.09 EQUIVOCAL; REPEAT TESTING SUGGESTED > OR = 1.10 POSITIVE ; INDICATES PRESENCE OF DETECTABLE IgG ANTIBODY TO CMV Performed By: #### 3 1397, 24265, 90215, 24452, 73138 #### [facility] [place] [address] [place] [address], [facility] COMP METABOLIC PANELon 02-12 Albumin [Mass/Vol] 4.5 g/dL Normal 3.5-5.[address] [facility] Comment on above: Performed By: #### 2 2505, 54267, 82072 #### [facility] [place] [address] [place] [address], [place] ALKALINE PHOSPH 89 IU/L Normal 34-[address] [facility] Comment on above: Performed By: #### 2 2505, 97819, 25317 #### [facility] [place] [address] [place] [address], [place] ALT [Catalytic activity/Vol] 12 U/L Normal 7-[address] [facility] Comment on above: Performed By: #### 2 2505, 76403, 75372 #### [facility] [place] [address] [place] [address], [place] AST [Catalytic activity/Vol] 13 U/L Normal 13-[address] [facility] Comment on above: Performed By: #### 2 2505, 43675, 95223 #### [facility] [place] [address] [place] [address], [place] Bilirubin [Mass/Vol] 0.3 mg/dL Normal 0.3-1.[address] [facility] Comment on above: Performed By: #### 2 2505, 07255, 28140 #### [facility] [place] [address] [place] [address], [place] Calcium [Mass/Vol] 9.5 mg/dL Normal 8.6-10.[address] [facility] Comment on above: Performed By: #### 2 2505, 81597, 53152 #### [facility] [place] [address] [place] [address], [facility] Chloride [Moles/Vol] 103 mmol/L Normal 98-[address] [facility] Comment on above: Performed By: #### 2 2505, 00817, 14784 #### [facility] [place] [address] [place] [address], [place] CO2 [Moles/Vol] 22 mmol/L Normal 21-[address] [facility] Comment on above: Performed By: #### 2 2505, 60268, 38723 #### [facility] [place] [address] [place] [address], [facility] Creatinine [Mass/Vol] 3.51 mg/dL High 0.60-1.[address] [facility] Comment on above: Performed By: #### 2 2505, 97477, 95457 #### [facility] [place] [address] [place] [address], [facility] eGFR- 17 ml/min/1.73sq m Abnormal >[address] [facility] Comment on above: Performed By: #### 2 2505, 99278, 39541 #### [facility] [place] [address] [place] [address], [facility] eGFR- non- 14 ml/min/1.73sq m Abnormal >[address] [facility] Comment on above: Performed By: #### 2 2505, 18805, 92807 #### [facility] [place] [address] [place] [address], [place] Glucose [Mass/Vol] 100 mg/dL Normal 70-[address] [facility] Comment on above: Performed By: #### 2 2505, 43053, 50008 #### [facility] [place] [address] [place] [address], [facility] Potassium [Moles/Vol] 3.9 mmol/L Normal 3.5-5.[address] [facility] Comment on above: Performed By: #### 2 2505, 60750, 11330 #### [facility] [address] [place] [address], [facility] Protein [Mass/Vol] 8.0 g/dL Normal 6.0-8.[address] [facility] Comment on above: Performed By: #### 2 2505, 39251, 57799 #### [facility] [address] [place] [address], [place] Sodium [Moles/Vol] 136 mmol/L Normal 136-[address] [facility] Comment on above: Performed By: #### 2 2505, 52707, 16419 #### [facility] [address] [place] [address], [place] Urea nitrogen [Mass/Vol] 41 mg/dL High 7-[address] [facility] Comment on above: Performed By: #### 2 2505, 90676, 59030 #### [facility] [place] [address] [place] [address], [place] CREATININE URINE RANDOMon Creatinine (U) [Mass/Vol] 63.0 mg/dL Normal [facility] Comment on above: Result Comment: Ther e are no established reference values for random urine specimens Performed By: #### 3 1397, 66443, 41831, 51331, 90112 #### [facility] [place] [address] [place] [address], [facility] CT RENAL RECIPIENT ABDOMEN A ND PEVLIS WO CONTRASTon 02-12-2022 CT RENAL RECIPIENT ABDOMEN AND PEVLIS WO CONTRAST [facility] Department of Radiology [address] [place] [address] [id number] == Patient Name: MANDEEP PURI : 1975 [...] achievable. Electronically signed: NAN SARAVIA. Transcribed by: [email or web address], User Resident: Electronically Signed by: NAN SARAVIA @ 02/12/2022 02:[address] [facility] Comment on above: Order Comment: , [...] Bilirubin.direct [Mass/Vol] 0.0 mg/dL Normal 0.0-0.[address] [facility] Comment on above: Performed By: #### 2 9305, 94988, 47728 #### [facility] [place] [address] BRETT LAGUERRE VIRUS ABon 05- EB VCA IGG 2.[address] [facility] Comment on above: Order Comment: CONSI STENT WITH PAST EBV INFECTION Result Comment: NORM AL RANGES: < OR = 0.9O NEGATIVE ; NO DETECTABLE IgG ANTIBODY TO EBV-VCA 0.91 - 1.09 EQUIVOCAL; REPEAT TESTING SUGGESTED > OR = 1.10 POSITIVE ; INDICATES PRESENCE OF DETECTABLE IgG ANTIBODY TO EBV Performed By: #### 3 1397, 18949, 71802, 77506, 91640 #### [facility] [place] [address] EB VCA IGM 0.[address] [facility] Comment on above: Order Comment: CONSI STENT WITH PAST EBV INFECTION Result Comment: NORM AL RANGES: < OR = 0.9O NEGATIVE ; NO SIGNIFICANT LEVEL OF DETECTABLE EBV-VCA IgM AB 0.91 - 1.09 EQUIVOCAL; REPEAT TESTING SUGGESTED > OR = 1.10 POSITIVE ; SIGNIFICANT LEVEL OF DETECTABLE EBV-VCA IgM AB Performed By: #### 3 1397, 96509, 14629, 93930, 39232 #### [facility] [place] [address] HEMOGLOBIN A1Con 02-12-2022 Glucose [Moles/Vol] 120 mmol/L Normal [facility] Comment on above: Performed By: #### 8 5123, 50355 #### [facility] [place] [address] HbA1c (Bld) [Mass fraction] 5.8 % Normal 4.0-6.[address] [facility] Comment on above: Performed By: #### 8 5123, 74054 #### [facility] [place] [address] [facility]. [address] HEPATITIS A ANTIBODY IGMon 0 02-12-2022 HEP A AB IGM Non-Reactive Normal NONREACTIVE [facility] Comment on above: Performed By: #### 3 1397, 50794, 82389, 84885, 18851 #### [facility] [place] [address] HEPATITIS B CORE ANTIBODYon 02-12-2022 HEP B CORE AB Non-Reactive Normal NONREACTIVE [facility] Comment on above: Performed By: #### 3 1397, 11224, 50134, 40399, 27046 #### [facility] [place] [address] [facility] [place] [address], [facility] HEPATITIS B SURFACE ANTIBODY QUANTon 02-12-2022 HEP B SURF AB 1.14 mIU/ml Normal [facility] Comment on above: Result Comment: INTE RPRETATION: NONREACTIVE<8.00 mIU/mL INDETERMINATE8.00 - 12.00 mIU/mL REACTIVE>12 mIU/mL Performed By: #### 3 1397, 79778, 17765, 69334, 76845 #### [facility] [place] [address] [place] [address], [facility] HEPATITIS B SURFACE ANTIGEN QUALon 02-12-2022 HEP B SURF AG QUAL Non-Reactive Normal NONREACTIVE [facility] Comment on above: Performed By: #### 3 1397, 58511, 90426, 92497, 35525 #### [facility] [place] [address] [place] [address], [facility] HEPATITIS C ANTIBODYon 02-12 ANTI-HCV Non-Reactive Normal NONREACTIVE [facility] Comment on above: Performed By: #### 3 1397, 41698, 26573, 28402, 60234 #### [facility] [place] [address] [facility] [place] [address], [facility] HIV1 AND 2 COMBO 4Gon 2021 HIV COMBO Negative Normal NEGATIVE [facility] Comment on above: Performed By: #### 3 1397, 68723, 29165, 23718, 44285 #### [facility] [place] [address] [facility] [place] [address], [facility] HLA ABC CLASS I TYPINGon A*-1 EQUIVALENT [address] [facility] Comment on above: Order Comment: Some [...] to frequency. Performed By: #### 3 1397, 79448, 01466, 26852, 36155 #### [facility] [place] [address] [place] [address], [place] A*-2 EQUIVALENT [address] [facility] Comment on above: Order Comment: Some [...] to frequency. Performed By: #### 3 1397, 12777, 53043, 72094, 70449 #### [facility] [place] [address] [facility] [place] [address], [place] B*-1 EQUIVALENT [address] [facility] Comment on above: Order Comment: Some [...] to frequency. Performed By: #### 3 1397, 26179, 65159, 78677, 88859 #### [facility] [place] [address] [place] [address], [place] B*-2 EQUIVALENT [address] [facility] Comment on above: Order Comment: Some [...] to frequency. Performed By: #### 3 1397, 94877, 49310, 11405, 92879 #### [facility] [place] [address] [place] [address], [facility] Bw*-1 EQUIVALENT [address] [facility] Comment on above: Order Comment: Some [...] to frequency. Performed By: #### 3 1397, 16168, 28120, 60820, 61309 #### [facility] [place] [address] [place] [address], [facility] Bw*-2 EQUIVALENT [address] [facility] Comment on above: Order Comment: Some [...] to frequency. Performed By: #### 3 1397, 61976, 55664, 96825, 69474 #### [facility] [place] [address] [place] [address], [facility] C*-1 EQUIVALENT [address] [facility] Comment on above: Order Comment: Some [...] to frequency. Performed By: #### 3 1397, 53858, 97509, 40731, 62960 #### [facility] [place] [address] C*-2 EQUIVALENT [address] [facility] Comment on above: Order Comment: Some [...] to frequency. Performed By: #### 3 1397, 39563, 38858, 28962, 83640 #### [facility] [place] [address] METHOD Class I Typing by PCR-SSOP Luminex Normal [facility] Comment on above: Order Comment: Some [...] to frequency. Performed By: #### 3 1397, 07752, 69319, 23920, 34461 #### [facility] [place] [address] [place] [address], [facility] SIGNED BY Normal [facility] Comment on above: Order Comment: Some [...] to frequency. Result Comment: Sree Noriega, MS,CHT(DONA),MT(ASCP) Photographic Equipment Inspector, Transplant Immunology Performed By: #### 3 1397, 43899, 25914, 53630, 23044 #### [facility] [place] [address] [place] [address], [facility] HLA DR CLASS II TYPINGon DPB1*-1 EQUIVALENT 04:[address] [facility] Comment on above: Order Comment: Some [...] to frequency. Performed By: #### 3 1397, 15222, 79390, 27431, 74818 #### [facility] [place] [address] [place] [address], [facility] DPB1*-2 EQUIVALENT 04:[address] [facility] Comment on above: Order Comment: Some [...] to frequency. Performed By: #### 3 1397, 59116, 65215, 06994, 67506 #### [facility] [place] [address] [place] [address], [place] DQA1*-1 EQUIVALENT [address] [facility] Comment on above: Order Comment: Some [...] to frequency. Performed By: #### 3 1397, 22198, 55809, 41655, 04490 #### [facility] [place] [address] [place] [address], [place] DQA1*-2 EQUIVALENT [address] [facility] Comment on above: Order Comment: Some [...] to frequency. Performed By: #### 3 1397, 80645, 00339, 28764, 58106 #### [facility] [place] [address] [place] [address], [place] DQB1*-1 EQUIVALENT [address] [facility] Comment on above: Order Comment: Some [...] to frequency. Performed By: #### 3 1397, 18565, 52892, 58637, 64600 #### [facility] [place] [address] [place] [address], [place] DQB1*-2 EQUIVALENT [address] [facility] Comment on above: Order Comment: Some [...] to frequency. Performed By: #### 3 1397, 20252, 90569, 88572, 38918 #### [facility] [place] [address] [place] [address], [facility] DRB1*-1 EQUIVALENT [address] [facility] Comment on above: Order Comment: Some [...] to frequency. Performed By: #### 3 1397, 59085, 49185, 14786, 46774 #### [facility] [place] [address] [facility] [place] [address], [facility] DRB1*-2 EQUIVALENT [address] [facility] Comment on above: Order Comment: Some [...] to frequency. Performed By: #### 3 1397, 85330, 32404, 28634, 04885 #### [facility] [place] [address] [facility] [place] [address], [facility] DRB3*-1 EQUIVALENT [address] [facility] Comment on above: Order Comment: Some [...] to frequency. Performed By: #### 3 1397, 23947, 48973, 64484, 51171 #### [facility] [place] [address] METHOD Class II Typing by PCR-SSOP Luminex Normal [facility] Comment on above: Order Comment: Some [...] to frequency. Performed By: #### 3 1397, 87278, 75506, 47196, 76747 #### [facility] [place] [address] [facility]. [address] LIPID PROFILEon 02-12-2022 Cholesterol [Mass/Vol] 221 mg/dL High 120-[address] [facility] Comment on above: Result Comment: CHOL ESTEROL REFERENCE RANGE: 20 YEARS AND OLDER CARDIOVASCULAR RISK Less than 200 mg/dl Low Risk 200 to 239 mg/dl Borderline Risk 240 mg/dl and greater High Risk Performed By: #### 3 1397, 96001, 54524, 61666, 89236 #### [facility] [place] [address] [facility] [place] [address], [facility] Cholesterol in HDL [Mass/Vol] 40 mg/dL Normal 23-[address] [facility] Comment on above: Result Comment: Slig ht variation in normal range could be due to gender and/or age. HDL CHOLESTEROL REFERENCE RANGE: 20 years and older Cardiovascular Risk > or =60 mg/dL Desirable 40 TO 59 mg/dL Low Risk <40 mg/dL High Risk Performed By: #### 3 1397, 66850, 12969, 45752, 79861 #### [facility] [place] [address] [place] [address], [facility] Cholesterol in LDL [Mass/Vol] 101 mg/dL Normal 0-[address] [facility] Comment on above: Result Comment: LDL IS A CALCULATION LDL IS ONLY VALID IF THE TRIG IS LESS THAN 400. Performed By: #### 3 1397, 68552, 65361, 24251, 65224 #### [facility] [place] [address] [place] [address], [facility] Cholesterol.total/Patt sterol in HDL [Mass ratio] 5.5 {ratio} High .0-4.[address] [facility] Comment on above: Performed By: #### 3 1397, 27648, 85915, 70579, 79738 #### [facility] [place] [address] [place] [address], [facility] NON-HDL CHOLESTEROL 181 mg/dL Normal [facility] Comment on above: Performed By: #### 3 1397, 57069, 17678, 77469, 87988 #### [facility] [place] [address] Triglyceride [Mass/Vol] 402 mg/dL High 40-[address] [facility] Comment on above: Result Comment: TRIG LYCERIDE REFERENCE RANGE: 20 YEARS AND OLDER CARDIOVASCULAR RISK LESS THAN 150 mg/dl LOW RISK 150 TO 199 mg/dl BORDERLINE RISK 200 mg/dl AND GREATER HIGH RISK Performed By: #### 3 1397, 67048, 92174, 67988, 40242 #### [facility] [place] [address] [place] [address], [facility] VLDL CHOL 80 mg/dL High 0-[address] [facility] Comment on above: Performed By: #### 3 1397, 40512, 79549, 20202, 84273 #### [facility] [place] [address] [place] [address], [facility] MUMPS IGG BLDon 02-12-2022 MUMPS IGG 5.[address] [facility] Comment on above: Result Comment: NORM AL RANGES: < OR = 0.9O NEGATIVE ; NO DETECTABLE IgG ANTIBODY TO MUMPS 0.91 - 1.09 EQUIVOCAL; REPEAT TESTING SUGGESTED > OR = 1.10 POSITIVE ; INDICATES PRESENCE OF DETECTABLE IgG ANTIBODY TO MUMPS Performed By: #### 3 1397, 14056, 49047, 99404, 77518 #### [facility] [place] [address] RUBELLAon 02-12-[address] RU[address] [facility] Comment on above: Result Comment: NORM AL RANGES: < OR = 0.9O NEGATIVE ; NO DETECTABLE IgG ANTIBODY TO RUBELLA 0.91 - 1.09 EQUIVOCAL; REPEAT TESTING SUGGESTED > OR = 1.10 POSITIVE ; INDICATES PRESENCE OF DETECTABLE IgG ANTIBODY TO RUBELLA VIRUS Performed By: #### 3 1397, 47242, 84905, 84367, 79197 #### [facility] [place] [address] RUBEOLA MEASLES IGGon 2021 RUBEO IGG 6.43 Normal [facility] Comment on above: Result Comment: NORM AL RANGES: < OR = 0.9O NEGATIVE ; NO DETECTABLE IgG ANTIBODY TO RUBEOLA 0.91 - 1.09 EQUIVOCAL; REPEAT TESTING SUGGESTED > OR = 1.10 POSITIVE ; INDICATES PRESENCE OF DETECTABLE IgG ANTIBODY TO RUBEOLA Performed By: #### 3 1397, 27665, 05728, 03466, 39938 #### [facility] [place] [address] SINGLE ANTIGEN CLASS 1on METHOD Class I Single Antigen Normal Th e [facility] Comment on above: Order Comment: Some [...] to frequency. Performed By: #### 3 1397, 67310, 00238, 55027, 30068 #### [facility] [place] [address] SINGLE ANTIGEN CLASS 2on COMMENTS Normal [facility] Comment on above: Order Comment: Some [...] watch list. Performed By: #### 3 1397, 43965, 83663, 55898, 69224 #### [facility] [place] [address] [facility] Result Comment: Clas s I Antigen Microbeads Potential specificites added to the watch list. CPRA [address] [facility] Comment on above: Order Comment: Some [...] to frequency. Performed By: #### 3 1397, 21141, 77560, 21912, 12391 #### [facility] [place] [address] [facility] [place] [address], [facility] METHOD Class II Single Antigen Normal T he [facility] Comment on above: Order Comment: Some [...] to frequency. Performed By: #### 3 1397, 61684, 69998, 37683, 60445 #### [facility] [place] [address] [place] [address], [facility] T PROT UR Yesy 02-12-2022 U TOTAL PROTEIN 44.0 mg/dL Normal [facility] Comment on above: Result Comment: Ther e are no established reference values for random urine specimens Performed By: #### 3 1397, 77402, 10255, 39014, 67054 #### [facility] [place] [address] [place] [address], [facility] TB QUANTIFERON PLUSon 2021 MITOGEN MINUS NIL >10.[address] [facility] Comment on above: Performed By: #### 3 1592 #### [facility] [place] [address] NIL 0.03 IU/mL Normal [facility] Comment on above: Performed By: #### 3 1592 #### [facility] [place] [address] TB QUANTIFERON Negative Normal NEGATIVE [facility] Comment on above: Result Comment: Jadiel tiferon TB Gold Interpretation (IU/mL): NEGATIVE: M. tuberculosis infection not likely. Nil: <=8.0 TB1 Antigen minus Nil ([id number]): <0.35 OR >=0.35; and <25% of Nil value. TB2 Antigen minus Nil ([id number]): <0.35 OR >=0.35; and <25% of Nil [...] By: #### 3 1592 #### [facility] [place] [address] [place] [address], [facility] TB1 AG 0.05 IU/mL Normal [facility] Comment on above: Performed By: #### 3 1592 #### [facility] [place] [address] [place] [address], [place] TB1 AG MINUS NIL 0.02 IU/mL Normal [facility] Comment on above: Performed By: #### 3 1592 #### [facility] [place] [address] [facility] [place] [address], [place] TB2 AG 0.05 IU/mL Normal [facility] Comment on above: Performed By: #### 3 1592 #### [facility] [place] [address] [facility] [place] [address], [facility] TB2 AG MINUS NIL 0.02 IU/mL Normal [facility] Comment on above: Performed By: #### 3 1592 #### [facility] [place] [address] [facility] [place] [address], [facility] UA,MICROSCOPIC REQUIREDon Appearance (U) SL CLOUDY Abnormal CLEAR [facility] Comment on above: Performed By: #### 3 1397, 09062, 93766, 26004, 78874 #### [facility] [place] [address] [facility] [place] [address], [place] Bilirubin Ql (U) Negative Normal NEGATIVE [facility] Comment on above: Performed By: #### 3 1397, 14494, 03177, 76016, 12026 #### [facility] [place] [address] [facility] [place] [address], [facility] Color (U) STRAW Abnormal YELLOW [facility] Comment on above: Performed By: #### 3 1397, 81208, 11844, 30368, 49855 #### [facility] [place] [address] [place] [address], [place] EPIS MANY Abnormal FEW,OCC,NONE SEEN [facility] Comment on above: Performed By: #### 3 1397, 62058, 54361, 99136, 86640 #### [facility] [place] [address] [facility] [place] [address], [facility] Glucose Ql (U) 50 mg/dL Abnormal NEGATIVE [facility] Comment on above: Performed By: #### 3 1397, 15438, 76620, 22842, 81660 #### [facility] [place] [address] [place] [address], [facility] Hemoglobin Ql (U) Negative Normal NEGATIVE [facility] Comment on above: Performed By: #### 3 1397, 82315, 16327, 89213, 38980 #### [facility] [place] [address] [facility] [place] [address], [facility] KETONE Negative Normal NEGATIVE [facility] Comment on above: Performed By: #### 3 1397, 59387, 60011, 10090, 30992 #### [facility] [place] [address] [facility]. [address] LEUK MARYAN MODERATE Abnormal NEGATIVE [facility] Comment on above: Performed By: #### 3 1397, 24027, 01234, 14063, 51804 #### [facility] [place] [address] [facility] [place] [address], [facility] Nitrite Ql (U) Negative Normal NEGATIVE [facility] Comment on above: Performed By: #### 3 1397, 59479, 97165, 00171, 67724 #### [facility] [place] [address] [facility] [place] [address], [facility] pH (U) 7.0 [pH] Normal 5.0-8.[address] [facility] Comment on above: Performed By: #### 3 1397, 46639, 53708, 11223, 90318 #### [facility] [place] [address] [facility] [place] [address], [facility] Protein Ql (U) 30 mg/dL Abnormal NEGATIVE [facility] Comment on above: Performed By: #### 3 1397, 60599, 60113, 86265, 06924 #### [facility] [place] [address] [place] [address], [facility] RBC NONE SEEN Normal NONE SEEN [facility] Comment on above: Performed By: #### 3 1397, 16457, 70098, 06250, 88334 #### [facility] [place] [address] [facility]. [address] SPEC GRAV 1.009 Low 1.015-1.[address] [facility] Comment on above: Performed By: #### 3 1397, 29416, 11897, 78179, 73390 #### [facility] [place] [address] [facility] [place] [address], [facility] WBC UA 11-20 Abnormal NONE SEEN [facility] Comment on above: Performed By: #### 3 1397, 54185, 90895, 27581, 41703 #### [facility] [place] [address] [facility]. [address] VARICELLA ZOSTER IGGon 02-12 VARICELLA IGG 3.[address] [facility] Comment on above: Result Comment: NORM AL RANGES: < OR = 0.9O NEGATIVE ; NO DETECTABLE IgG ANTIBODY TO VARICELLA-ZOSTER VIRUS 0.91 - 1.09 EQUIVOCAL; REPEAT TESTING SUGGESTED > OR = 1.10 POSITIVE ; INDICATES PRESENCE OF DETECTABLE IgG ANTIBODY TO VARICELLA-ZOSTER VIRUS Performed By: #### 3 1397, 25503, 71473, 42202, 36909 #### [facility] [place] [address] [facility]. [address] PTH INTACTon 12-04-2021 PTH, Intact 165 pg/mL Critically high 15-65 [facility] Comment on above: Performed By: #### M Edy, URIC, RENAL #### [facility] [address] [place] [address] Dr. Hari Palmer FERRITINon 12-03-2021 Ferritin [Mass/Vol] 256.0 ng/mL Critically high 6.2-137.0 [facility] Comment on above: Performed By: #### Xiomara G, URIC, RENAL #### [facility] [address] [place] [address] Dr. Hari Palmer HEMOGRAM AND PLATELon 2021 Hematocrit (Bld) [Volume fraction] 33.7 % Critically low 36.0-48.0 [facility] Comment on above: Performed By: #### M G, URIC, RENAL #### [facility] [address] [place] [address] Dr. Hari Palmer Hemoglobin (Bld) [Mass/Vol] 10.9 g/dL Critically low 12.0-16.0 [facility] Comment on above: Performed By: #### M G, URIC, RENAL #### [facility] [address] [place] [address] Dr. Hari Palmer MCH (RBC) [Entitic mass] 31.4 pg Normal 26.7-34.0 [facility] Comment on above: Performed By: #### M G, URIC, RENAL #### [facility] [address] [place] [address] Dr. Hari Palmer MCHC (RBC) [Mass/Vol] 32.3 g/dL Normal 29.9-35.2 [facility] Comment on above: Performed By: #### M G, URIC, RENAL #### [facility] [address] [place] [address] Dr. Hari Palmer MCV (RBC) [Entitic vol] 97.1 fL Normal 81.0-99.0 [facility] Comment on above: Performed By: #### M G, URIC, RENAL #### [facility] [address] [place] [address] Dr. Hari Palmer PLT 314 103/ul Normal 150-450 [facility] Comment on above: Performed By: #### M G, URIC, RENAL #### [facility] [address] [place] [address] Dr. Hari Palmer RBC 3.47 106/ul Critically low 4.20-5.40 [facility] Comment on above: Performed By: #### M G, URIC, RENAL #### [facility] [address] [place] [address] Dr. Hari Palmer WBC 9.4 103/ul Normal 4.0-11.0 [facility] Comment on above: Performed By: #### M Edy, URIC, RENAL #### [facility] [address] [place] [address] Dr. Hari Palmer IRON AND TIBCon 12-03-2021 % SATURATION 19.0 % Normal [facility] Comment on above: Performed By: #### M Edy, URIC, RENAL #### [facility] [address] [place] [address] Dr. Hari Palmer Iron [Mass/Vol] 52.0 ug/dL Normal 37.0-170.0 [facility] Comment on above: Performed By: #### M Edy, URIC, RENAL #### [facility] [address] [place] [address] Dr. Hari Palmer TIBC DIRECT 273.0 ug/dL Normal 261.0-497.0 [facility] Comment on above: Performed By: #### M Edy, URIC, RENAL #### [facility] [address] [place] [address] Dr. Hari Palmer MAGNESIUMon 12-03-2021 Magnesium [Mass/Vol] 2.1 mg/dL Normal 1.6-2.3 [facility] Comment on above: Performed By: #### M Edy, URIC, RENAL #### [facility] [address] [place] [address] Dr. Hari Palmer RENAL FUNCTION PANELon 12-03 Albumin [Mass/Vol] 3.6 g/dL Normal 3.5-5.0 [facility] Comment on above: Performed By: #### M Edy, URIC, RENAL #### [facility] [address] [place] [address] Dr. Hari Palmer Calcium [Mass/Vol] 8.4 mg/dL Normal 8.4-10.2 [facility] Comment on above: Performed By: #### M G, URIC, RENAL #### [facility] [address] [place] [address] Dr. Hari Palmer Chloride [Moles/Vol] 101 mmol/L Normal 98-107 [facility] Comment on above: Performed By: #### M G, URIC, RENAL #### [facility] [address] [address] [address] Hari Palmer CO2 [Moles/Vol] 24.3 mmol/L Normal 22.0-30.0 [facility] Comment on above: Performed By: #### M G, URIC, RENAL #### [facility] [address] [place] [address] Dr. Hari Palmer Creatinine [Mass/Vol] 3.32 mg/dL Critically high 0.52-1.04 [facility] Comment on above: Performed By: #### M G, URIC, RENAL #### [facility] [address] [place] [address] Dr. Hari Palmer EGFR-AF [place] 18 mL/min/1.73m2 Critically low >=60 [facility] Comment on above: Performed By: #### M G, URIC, RENAL #### [facility] [address] [place] [address] Dr. Hari Palmer EGFR-NON AF [place] 15 mL/min/1.73m2 Critically low >=60 [facility] Comment on above: Performed By: #### M G, URIC, RENAL #### [facility] [address] [place] [address] Dr. Hari Palmer Glucose [Mass/Vol] 119 mg/dL Critically high 74-106 [facility] Comment on above: Performed By: #### M G, URIC, RENAL #### [facility] [address] [place] [address] Dr. Hari Palmer Phosphate [Mass/Vol] 4.7 mg/dL Critically high 2.5-4.5 [facility] Comment on above: Performed By: #### M G, URIC, RENAL #### [facility] [address] [place] [address] Dr. Hari Palmer Potassium [Moles/Vol] 4.0 mmol/L Normal 3.4-5.0 [facility] Comment on above: Performed By: #### M G, URIC, RENAL #### [facility] [address] [place] [address] Dr. Hari Palmer Sodium [Moles/Vol] 135 mmol/L Critically low 137-145 Th e [facility] Comment on above: Performed By: #### M G, URIC, RENAL #### [facility] [address] [place] [address] Dr. Hari Palmer Urea nitrogen [Mass/Vol] 42.0 mg/dL Critically high 7.0-17.0 [facility] Comment on above: Performed By: #### M G, URIC, RENAL #### [facility] [address] [place] [address] Dr. Hari Palmer UA RANDOM W/MICROSCOPICon BACTERIA TRACE Abnormal NONE SEEN [facility] Comment on above: Performed By: #### U AMIC #### [facility] [address] [place] [address] Dr. Hair Palmer Bilirubin Ql (U) Negative Normal NEGATIVE [facility] Comment on above: Performed By: #### U AMIC #### [facility] [address] [place] [address] Dr. Hari Palmer CAST NONE SEEN Normal NONE SEEN The [facility] Comment on above: Performed By: #### U AMIC #### [facility] [address] [place] [address] Dr. Hari Palmer Clarity (U) CLEAR Normal CLEAR [facility] Comment on above: Performed By: #### U AMIC #### [facility] [address] [place] [address] Dr. Hari Palmer Color (U) LT. YELLOW Normal YELLOW The [facility] Comment on above: Performed By: #### U AMIC #### [facility] [address] [place] [address] Dr. Hari Palmer Crystals LM Nom (Urine sed) NONE SEEN Normal NONE SEEN The [facility] Comment on above: Performed By: #### U AMIC #### [facility] [address] [place] [address] Dr. Hari Palmer Epithelial cells LM Ql (Urine sed) FEW Abnormal NONE SEEN /RARE The [facility] Comment on above: Performed By: #### U AMIC #### [facility] [address] [place] [address] Dr. Hari Palmer Glucose Ql (U) 100 mg/dl Abnormal NEGATIVE [facility] Comment on above: Performed By: #### U AMIC #### [facility] [address] [place] [address] Dr. Hari Palmer Hemoglobin Ql (U) TRACE-INTACT Abnormal NEGATIVE [facility] Comment on above: Performed By: #### U AMIC #### [facility] [address] [address] [address] Hari Palmer Ketones Ql (U) Negative Normal NEGATIVE [facility] Comment on above: Performed By: #### U AMIC #### [facility] [address] [place] [address] Dr. Hari Palmer LEUKOCYTES SMALL Abnormal NEGATIVE [facility] Comment on above: Performed By: #### U AMIC #### [facility] [address] [place] [address] Dr. Hari Palmer MUCOUS NONE SEEN Normal NONE SEEN The [facility] Comment on above: Performed By: #### U AMIC #### [facility] [address] [place] [address] Dr. Hari Palmer Nitrite Ql (U) Negative Normal NEGATIVE [facility] Comment on above: Performed By: #### U AMIC #### [facility] [address] [place] [address] Dr. Hari Palmer pH (U) 6.0 [pH] Normal 5-9 [facility] Comment on above: Performed By: #### U AMIC #### [facility] [address] [place] [address] Dr. Hari Palmer RBC 0-2 Normal 0-2 [facility] Comment on above: Performed By: #### U AMIC #### [facility] [address] [place] [address] Dr. Hari Palmer SPEC GRAVITY 1.010 Normal 1.005-<=1.02 5 [facility] Comment on above: Performed By: #### U AMIC #### [facility] [address] [place] [address] Dr. Hari Palmer UA PROTEIN Negative Normal NEGATIVE/ TRACE The [facility] Comment on above: Performed By: #### U AMIC #### [facility] [address] [place] [address] Dr. Hari Palmer Urobilinogen Qn (U) 0.2 {Janice'U}/dL Normal 0.2 - 1. 0 [facility] Comment on above: Performed By: #### U AMIC #### [facility] [address] [place] [address] Dr. Hari Palmer WBC 5-10 Abnormal NONE SEEN The [facility] Comment on above: Performed By: #### U AMIC #### [facility] [address] [place] [address] Dr. Hari Palmer URIC ACID SERUMon 12-03-2021 Urate [Mass/Vol] 4.6 mg/dL Normal 2.5-6.2 [facility] Comment on above: Performed By: #### M G, URIC, RENAL #### [facility] [address] [place] [address] Dr. Hari Palmer URINE T PROTEIN CREAT RATIOo n 12-03-2021 Protein (U) [Mass/Vol] 31.7 mg/dL Critically high <=12.0 [facility] Comment on above: Performed By: #### M G, URIC, RENAL #### [facility] [address] [place] [address] Dr. Hari Palmer UR PROT CREAT RAT 0.54 Normal [facility] Comment on above: Performed By: #### M G, URIC, RENAL #### [facility] [address] [place] [address] Dr. Hari Palmer URINE CREAT 59.03 mg/dL Normal 20.00-300.00 [facility] Comment on above: Performed By: #### M G, URIC, RENAL #### [facility] [address] [place] [address] Dr. Hari Palmer VITAMIN D 25 OHon 12-03-2021 VIT D 25-OH 38.1 ng/mL Normal [facility] Comment on above: Performed By: #### M G, URIC, RENAL #### [facility] [address] [place] [address] Dr. Hari Palmer VIT D RANGES SEE BELOW Normal [facility] Comment on above: Result Comment: <20 ng/mL Vit D deficient 20 - <30 ng/mL Vit D insufficient 30 - 100 ng/mL Vit D sufficient >100 ng/mL Potential Toxicity Performed By: #### M G, URIC, RENAL #### [facility] [address] [place] [address] Dr. Hari Palmer PTH INTACTon 09-03-2021 PTH, Intact 177 pg/mL Critically high 15-65 [facility] Comment on above: Performed By: #### P THINT #### [facility] [address] [place] [address] Dr. Hari Palmer CBC AUTO DIFFon 09-01-2021 BASO # 0.1 103/ul Normal 0.0-0.1 [facility] Comment on above: Performed By: #### M G, URIC, RENAL #### [facility] [address] [place] [address] Dr. Hari Palmer Basophils/100 WBC (Bld) 0.6 % Normal 0.2-2.0 [facility] Comment on above: Performed By: #### M G, URIC, RENAL #### [facility] [address] [place] [address] Dr. Hari Palmer EO # 0.3 103/ul Normal 0.0-0.7 [facility] Comment on above: Performed By: #### M G, URIC, RENAL #### [facility] [address] [place] [address] Dr. Hari Palmer Eosinophils/100 WBC (Bld) 3.5 % Normal 0.9-7.0 [facility] Comment on above: Performed By: #### M G, URIC, RENAL #### [facility] [address] [place] [address] Dr. Hari Palmer Erythrocyte distribution width (RBC) [Ratio] 13.8 % Normal 11.0-15.0 [facility] Comment on above: Performed By: #### M G, URIC, RENAL #### [facility] [address] [address] [address] Hari Palmer Hematocrit (Bld) [Volume fraction] 32.8 % Critically low 36.0-48.0 [facility] Comment on above: Performed By: #### M G, URIC, RENAL #### [facility] [address] [address] [address] Hari Palmer Hemoglobin (Bld) [Mass/Vol] 10.6 g/dL Critically low 12.0-16.0 [facility] Comment on above: Performed By: #### M G, URIC, RENAL #### [facility] [address] [place] [address] Dr. Hari Palmer IG # 0.14 10e3/ul Critically high 0.00-0.03 [facility] Comment on above: Performed By: #### M G, URIC, RENAL #### [facility] [address] [place] [address] Dr. Hari Palmer IG % 1.5 % Critically high 0.0-0.5 [facility] Comment on above: Performed By: #### M G, URIC, RENAL #### [facility] [address] [place] [address] Dr. Hari Palmer LYMPH # 1.8 103/ul Normal 1.2-3.8 [facility] Comment on above: Performed By: #### M G, URIC, RENAL #### [facility] [address] [address] [address] Hari Palmer Lymphocytes/100 WBC (Bld) 19.3 % Critically low 20.5-60.0 [facility] Comment on above: Performed By: #### M G, URIC, RENAL #### [facility] [address] [address] [address] Hari Palmer MANUAL DIFF REQ NO Normal [facility] Comment on above: Performed By: #### M G, URIC, RENAL #### [facility] [address] [place] [address] Dr. Hari Palmer MCH (RBC) [Entitic mass] 31.4 pg Normal 26.7-34.0 [facility] Comment on above: Performed By: #### M G, URIC, RENAL #### [facility] [address] [place] [address] Dr. Hari Palmer [facility] ([facility] [Mass/Vol] 32.3 g/dL Normal 29.9-35.2 [facility] Comment on above: Performed By: #### M G, URIC, RENAL #### [facility] [address] [place] [address] Dr. Hari Palmer MCV (RBC) [Entitic vol] 97.0 fL Normal 81.0-99.0 [facility] Comment on above: Performed By: #### M G, URIC, RENAL #### [facility] [address] [place] [address] Dr. Hari Palmer MONO # 0.4 103/ul Normal 0.3-0.8 [facility] Comment on above: Performed By: #### M G, URIC, RENAL #### [facility] [address] [place] [address] Dr. Hari Palmer Monocytes/100 WBC (Bld) 4.2 % Normal 1.7-12.0 [facility] Comment on above: Performed By: #### M G, URIC, RENAL #### [facility] [address] [place] [address] Dr. Hari Palmer NEUT # 6.5 103/ul Normal 1.4-6.5 [facility] Comment on above: Performed By: #### M G, URIC, RENAL #### [facility] [address] [place] [address] Dr. Hari Palmer Neutrophils/100 WBC (Bld) 70.9 % Normal 43.0-75.0 [facility] Comment on above: Performed By: #### M G, URIC, RENAL #### [facility] [address] [place] [address] Dr. Hari Palmer Platelet mean volume (Bld) [Entitic vol] 9.0 fL Critically low 9.5-13.5 [facility] Comment on above: Performed By: #### M G, URIC, RENAL #### [facility] [address] [address] [address] Hari Palmer PLT 289 103/ul Normal 150-450 [facility] Comment on above: Performed By: #### M G, URIC, RENAL #### [facility] [address] [address] [address] Hari Palmer RBC 3.38 106/ul Critically low 4.20-5.40 [facility] Comment on above: Performed By: #### M G, URIC, RENAL #### [facility] [address] [address] [address] Hari Palmer WBC 9.1 103/ul Normal 4.0-11.0 [facility] Comment on above: Performed By: #### M Edy, URIC, RENAL #### [facility] [address] [place] [address] Dr. Hari Palmer FERRITINon 09-01-2021 Ferritin [Mass/Vol] 204.0 ng/mL Critically high 6.2-137.0 [facility] Comment on above: Performed By: #### M Edy, URIC, RENAL #### [facility] [address] [place] [address] Dr. Hari Palmer IRON AND TIBCon 09-01-2021 % SATURATION 28.4 % Normal [facility] Comment on above: Performed By: #### M G, URIC, RENAL #### [facility] [address] [place] [address] Dr. Hari Palmer Iron [Mass/Vol] 80.0 ug/dL Normal 37.0-170.0 [facility] Comment on above: Performed By: #### M G, URIC, RENAL #### [facility] [address] [place] [address] Dr. Hari Palmer TIBC DIRECT 282.0 ug/dL Normal 261.0-497.0 [facility] Comment on above: Performed By: #### M G, URIC, RENAL #### [facility] [address] [place] [address] Dr. Hari Palmer MAGNESIUMon 09-01-2021 Magnesium [Mass/Vol] 2.2 mg/dL Normal 1.6-2.3 [facility] Comment on above: Performed By: #### U AMIC #### [facility] [address] [place] [address] Dr. Hari Palmer RENAL FUNCTION PANELon 09-01 Albumin [Mass/Vol] 3.5 g/dL Normal 3.5-5.0 [facility] Comment on above: Performed By: #### M G, URIC, RENAL #### [facility] [address] [place] [address] Dr. aHri Palmer Calcium [Mass/Vol] 8.7 mg/dL Normal 8.4-10.2 [facility] Comment on above: Performed By: #### M G, URIC, RENAL #### [facility] [address] [place] [address] Dr. Hari Palmer Chloride [Moles/Vol] 105 mmol/L Normal 98-107 [facility] Comment on above: Performed By: #### M G, URIC, RENAL #### [facility] [address] [place] [address] Dr. Hari Palmer CO2 [Moles/Vol] 21.1 mmol/L Critically low 22.0-30.0 [facility] Comment on above: Performed By: #### M G, URIC, RENAL #### [facility] [address] [place] [address] Dr. Hari Palmer Creatinine [Mass/Vol] 3.63 mg/dL Critically high 0.52-1.04 [facility] Comment on above: Performed By: #### M G, URIC, RENAL #### [facility] [address] [place] [address] Dr. Hari Palmer EGFR-AF [place] 16 mL/min/1.73m2 Critically low >=60 [facility] Comment on above: Performed By: #### M G, URIC, RENAL #### [facility] [address] [place] [address] Dr. Hari Palmer EGFR-NON AF [place] 14 mL/min/1.73m2 Critically low >=60 [facility] Comment on above: Performed By: #### M G, URIC, RENAL #### [facility] [address] [address] [address] Hari Palmer Glucose [Mass/Vol] 115 mg/dL Critically high 74-106 [facility] Comment on above: Performed By: #### M G, URIC, RENAL #### [facility] [address] [place] [address] Dr. Hari Palmer Phosphate [Mass/Vol] 4.6 mg/dL Critically high 2.5-4.5 [facility] Comment on above: Performed By: #### M G, URIC, RENAL #### [facility] [address] [place] [address] Dr. Hari Palmer Potassium [Moles/Vol] 4.2 mmol/L Normal 3.4-5.0 [facility] Comment on above: Performed By: #### M G, URIC, RENAL #### [facility] [address] [place] [address] Dr. Hari Palmer Sodium [Moles/Vol] 138 mmol/L Normal 137-145 [facility] Comment on above: Performed By: #### M G, URIC, RENAL #### [facility] [address] [place] [address] Dr. Hari Palmer Urea nitrogen [Mass/Vol] 50.0 mg/dL Critically high 7.0-17.0 [facility] Comment on above: Performed By: #### M G, URIC, RENAL #### [facility] [address] [place] [address] Dr. Hari Palmer UA RANDOM W/MICROSCOPICon BACTERIA SMALL Abnormal NONE SEEN The [facility] Comment on above: Performed By: #### U AMIC #### [facility] [address] [place] [address] Dr. Hari Palmer Bilirubin Ql (U) Negative Normal NEGATIVE [facility] Comment on above: Performed By: #### U AMIC #### [facility] [address] [place] [address] Dr. Hari Palmer CAST NONE SEEN Normal NONE SEEN [facility] Comment on above: Performed By: #### U AMIC #### [facility] [address] [place] [address] Dr. Hari Palmer Clarity (U) CLEAR Normal CLEAR [facility] Comment on above: Performed By: #### U AMIC #### [facility] [address] [address] [address] Hari Palmer Color (U) LT. YELLOW Normal YELLOW [facility] Comment on above: Performed By: #### U AMIC #### [facility] [address] [place] [address] Dr. Hari Palmer Crystals LM Nom (Urine sed) NONE SEEN Normal NONE SEEN [facility] Comment on above: Performed By: #### U AMIC #### [facility] [address] [place] [address] Dr. Hari Palmer Epithelial cells LM Ql (Urine sed) MODERATE Abnormal NONE SEEN /RARE [facility] Comment on above: Performed By: #### U AMIC #### [facility] [address] [place] [address] Dr. Hari Palmer Glucose Ql (U) Negative Normal NEGATIVE [facility] Comment on above: Performed By: #### U AMIC #### [facility] [address] [place] [address] Dr. Hari Palmer Hemoglobin Ql (U) TRACE-INTACT Abnormal NEGATIVE [facility] Comment on above: Performed By: #### U AMIC #### [facility] [address] [place] [address] Dr. Hari Palmer Ketones Ql (U) Negative Normal NEGATIVE [facility] Comment on above: Performed By: #### U AMIC #### [facility] [address] [place] [address] Dr. Hari Palmer LEUKOCYTES Negative Normal NEGATIVE [facility] Comment on above: Performed By: #### U AMIC #### [facility] [address] [place] [address] Dr. Hari Palmer MUCOUS NONE SEEN Normal NONE SEEN [facility] Comment on above: Performed By: #### U AMIC #### [facility] [address] [place] [address] Dr. Hari Palmer Nitrite Ql (U) Negative Normal NEGATIVE [facility] Comment on above: Performed By: #### U AMIC #### [facility] [address] [address] [address] Hari Palmer pH (U) 6.0 [pH] Normal 5-9 [facility] Comment on above: Performed By: #### U AMIC #### [facility] [address] [place] [address] Dr. Hari Palmer RBC 2-5 Abnormal 0-2 [facility] Comment on above: Performed By: #### U AMIC #### [facility] [address] [place] [address] Dr. Hari Palmer SPEC GRAVITY 1.010 Normal 1.005-<=1.02 5 [facility] Comment on above: Performed By: #### U AMIC #### [facility] [address] [place] [address] Dr. Hari Palmer UA PROTEIN Negative Normal NEGATIVE/ TRACE [facility] Comment on above: Performed By: #### U AMIC #### [facility] [address] [place] [address] Dr. Hari Palmer Urobilinogen Qn (U) 0.2 {Janice'U}/dL Normal 0.2 - 1. 0 [facility] Comment on above: Performed By: #### U AMIC #### [facility] [address] [place] [address] Dr. Hari Palmer WBC 2-5 Abnormal NONE SEEN The [facility] Comment on above: Performed By: #### U AMIC #### [facility] [address] [place] [address] Dr. Hari Palmer URIC ACID SERUMon 09-01-2021 Urate [Mass/Vol] 4.9 mg/dL Normal 2.5-6.2 [facility] Comment on above: Performed By: #### U AMIC #### [facility] [address] [place] [address] Dr. Hari Palmer URINE T PROTEIN CREAT RATIOo n 09-01-2021 Protein (U) [Mass/Vol] 22.2 mg/dL Critically high <=12.0 [facility] Comment on above: Performed By: #### M G, URIC, RENAL #### [facility] [address] [place] [address] Dr. Hari Palmer UR PROT CREAT RAT 0.47 Normal [facility] Comment on above: Performed By: #### M G, URIC, RENAL #### [facility] [address] [place] [address] Dr. Hari Palmer URINE CREAT 46.89 mg/dL Normal 20.00-300.00 [facility] Comment on above: Performed By: #### M G, URIC, RENAL #### [facility] [address] [place] [address] Dr. Hari Palmer VITAMIN D 25 OHon 09-01-2021 VIT D 25-OH 40.5 ng/mL Normal [facility] Comment on above: Performed By: #### M G, URIC, RENAL #### [facility] [address] [place] [address] Dr. Hari Palmer VIT D RANGES SEE BELOW Normal [facility] Comment on above: Result Comment: <20 ng/mL Vit D deficient 20 - <30 ng/mL Vit D insufficient 30 - 100 ng/mL Vit D sufficient >100 ng/mL Potential Toxicity Performed By: #### M Edy, URIC, RENAL #### [facility] [address] [place] [address] Dr. Hari Palmer CNOVon 03-30-2021 CNOV Office Visit (NEPHMN ) -------- MANDEEP PURI ([id number]) 1975 F Date Time Provider Department 03/30/21 9:20 AM PERRI BARRETT During your visit today, we recorded the following information about you: Temperature Pulse Blood pressure Weight 98.2 degrees 75/minute 122/77 93 kg Height 1.549 m Perri Barrett MD 03/30/2021 10:25 AM Signed Mrs. 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 Normal [facility] Urinalysison 03-30-2021 Bilirubin, Urine Negative Normal Negative [facility] Comment on above: Performed By: #### U A #### [facility] [address] [address] Clarity (U) Clear Normal Clear [facility] Comment on above: Performed By: #### U A #### [facility] [address] [phone] Color (U) Colorless Critically abnormal Yellow [facility] Comment on above: Performed By: #### U A #### [facility] [address] [address] Comments SEE COMMENT Normal [facility] Comment on above: Result Comment: Micr oscopic not warranted Performed By: #### U A #### [facility] [employer] [address] [address] Glucose Ql (U) Trace Critically abnormal Negative [facility] Comment on above: Performed By: #### U A #### [facility] [address] [place], [place] [address] Hemoglobin/Blood,Ur Negative Normal Negative [facility] Comment on above: Performed By: #### U A #### [facility] [address] [place], [place] [address] Ketones Ql (U) Negative Normal Negative [facility] Comment on above: Performed By: #### U A #### [facility] [address] [place], [place] [address] Leukest Negative Normal Negative [facility] Comment on above: Performed By: #### U A #### [address] [address] Nitrite Ql (U) Negative Normal Negative [facility] Comment on above: Performed By: #### U A #### [address] [address] pH (U) 6.5 [pH] Normal 5.0-8.0 [facility] Comment on above: Performed By: #### U A #### [address] [place], [place] [address] Protein, Urine Negative Normal Negative [facility] Comment on above: Performed By: #### U A #### [facility] [address] [place], [place] [address] Specific [place], Ur 1.008 Normal 1.005-1.030 [facility] Comment on above: Performed By: #### U A #### [facility] [address] [place], [place] [address] Urine Codi Comment SEE COMMENT Normal [facility] Comment on above: Result Comment: N/A Performed By: #### U A #### [facility] [address] [place], [place] [address] Urobilinogen (U) [Mass/Vol] Negative Normal Negative [facility] Comment on above: Performed By: #### U A #### [facility] [address] [place], [place] [address] Coding Summary.on 04-21-2020 Coding Summary. CODING DATE: 020 [facility] STATUS: Home (Routine DC) PAYOR: Medical [place] ADMIT DX: REASON FOR VISIT DX: [phone] [...] CphT Date Saved: 04/21/2020 05:17 pm Normal [facility] Physician Orderon 04-21-2020 Physician Order [id number]: 127 Normal [facility] Marci 04-12-2020 ALT [Catalytic activity/Vol] 14 U/L Normal 7 - 45 [facility] Comment on above: Result Comment: Kelsea ents treated with Sulfasalazine may generate falsely decreased results for ALT. Performed By: #### A LT #### [facility] [address] [place] [address] Ronald 04-12-2020 AST [Catalytic activity/Vol] 16 U/L Normal 9 - 39 [facility] Comment on above: Performed By: #### A ST #### [facility] [address] [place] [address] CREATININEon 04-12-2020 Creatinine [Mass/Vol] 2.83 mg/dL High 0.50 - 1.05 [facility] Comment on above: Performed By: #### C REAT #### [facility] [address] [place] [address] Creatinine [Mass/Vol] 18 mL/min/1.73m2 Abnormal >60 [facility] Comment on above: Performed By: #### C REAT #### C [id number] [place] [address] Creatinine [Mass/Vol] 22 mL/min/1.73m2 Abnormal >60 [facility] Comment on above: Result Comment: CALC ULATIONS OF ESTIMATED GFR ARE PERFORMED USING THE MDRD STUDY EQUATION FOR THE IDMS-TRACEABLE CREATININE METHODS. CLIN CHEM 2007;53:766-72 Performed By: #### C REAT #### [facility] [id number] [place] [address] URIC ACIDon 04-12-2020 Urate [Mass/Vol] 5.2 mg/dL Normal 2.3 - 6.7 [facility] Comment on above: Result Comment: Beti puncture immediately after or during the administration of Metamizole may lead to falsely low results. Testing should be performed immediately prior to Metamizole dosing. Performed By: #### U DASHAWN #### [facility] [address] [place] [address] URIC ACIDon 02-11-2020 Urate [Mass/Vol] 8.2 mg/dL High 2.3 - 6.7 [facility] Comment on above: Result Comment: Beti puncture immediately after or during the administration of Metamizole may lead to falsely low results. Testing should be performed immediately prior to Metamizole dosing. Performed By: #### U DASHAWN #### [facility] [address] [place] [address] Cult,Urineon 08-04-2019 Cult,Urine Specimen Description .CLEAN CATCH URINE Special Requests NOT REPORTED Culture ESCHERICHIA COLI >[id number] CFU/ML Report Status FINAL 08/04/2019 SUSCEPTIBILITY Organism [...] Trimethoprim/Sulfa <=20 SUSCEPTIBLE Piperacillin/Tazobactam <=4 SUSCEPTIBLE Normal [facility] Comment on above: Performed By: #### D CITLALY, LIP, CMPX, TROPI, BNP, CDP, PT #### [facility] [address] [place], [place] [id number] [employer]ong Table: Sami Dominguez MD Brain Natri. Peptideon 08-02 Natriuretic peptide B (Bld) [Mass/Vol] 152 pg/mL Normal <300 [facility] Comment on above: Result Comment: Pro- BNP results cannot be compared to BNP results. Performed By: #### D CITLALY, LIP, CMPX, TROPI, BNP, CDP, PT #### [facility] [address] [place], [place] [id number] [employer] Ping Pong Table: Sami Dominguez MD Natriuretic peptide B (Bld) [Mass/Vol] Pro-BNP Reference Range: Normal [facility] Comment on above: Result Comment: Rule Out: <300 Parra Zone: Age <50 300-450 Age 50-75 300-900 Age >75 300-1800 Usually represents mild to moderate HF but other cardiopulmonary causes cannot be ruled out. Rule In: Age <50 >450 Age 50-75 >900 Age >75 >1800 Performed By: #### D CITLALY, LIP, CMPX, TROPI, BNP, CDP, PT #### [facility] [address] [place], [place] [id number] [employer] P[employer] Pong Table: Sami Dominguez MD Brain Natriuretic Peptideon 08-02-2019 Natriuretic peptide B (Bld) [Mass/Vol] 152 pg/mL <300 [facility], [place] Comment on above: Pro-BNP results eric ot be compared to BNP results. Natriuretic peptide B (Bld) [Mass/Vol] Pro-BNP Reference Range: [facility], [place] Comment on above: Rule Out: <300 Parra Zone: Age <50 300-450 Age 50-75 300-900 Age >75 300-1800 Usually represents mild to moderate HF but other cardiopulmonary causes cannot be ruled out. Rule In: Age <50 >450 Age 50-75 >900 Age >75 >1800 CBC Auto Differentialon 10-2 8-2019 Basophils (Bld) [#/Vol] 0.00 10*3/uL [place] Basophils/100 WBC (Bld) 0 % 0 - 2 % [place] Differential Type NOT REPORTED [place] Eosinophils (Bld) [#/Vol] 0.08 10*3/uL [place] Eosinophils/100 WBC (Bld) 1 % 1 - 4 % [place] Erythrocyte distribution width (RBC) [Ratio] 13.2 % 11.8 - 14.4 % [place] Hematocrit (Bld) [Volume fraction] 33.7 % Low 36.3 - 47.1 % [place] Hemoglobin (Bld) [Mass/Vol] 10.7 g/dL Low 11.9 - 15.1 g/dL [place] Immature granulocytes (Bld) [#/Vol] 0 % 0 [place] Immature granulocytes (Bld) [#/Vol] 0.00 10*3/uL [place] Interpretation and review of laboratory results Abnormal [place] Lymphocytes (Bld) [#/Vol] 0.90 10*3/uL Low [place] Lymphocytes/100 WBC (Bld) 12 % Low 24 - 43 % [place] MCH (RBC) [Entitic mass] 30.2 pg 25.2 - 33.5 pg [place] MCHC (RBC) [Mass/Vol] 31.8 g/dL 28.4 - 34.8 g/dL [place] MCV (RBC) [Entitic vol] 95.2 fL 82.6 - 102.9 fL [place] Monocytes (Bld) [#/Vol] 0.00 10*3/uL Low [place] Monocytes/100 WBC (Bld) 0 % Low 3 - 12 % [place] Morphology Geovany (Bld) [Interp] Normal [place] Platelet mean volume (Bld) [Entitic vol] 8.6 fL 8.1 - 13.5 fL [place] Platelets (Bld) [#/Vol] NOT REPORTED [place] Platelets (Bld) [#/Vol] 335 10*3/uL [place] RBC (Bld) [#/Vol] 3.54 10*6/uL Low 3.95 - 5.1 1 m/uL [place] RBC morphology finding Nom (Bld) NOT REPORTED [place] Segmented neutrophils/100 WBC (Bld) 87 % High 36 - 65 % [place] Segs Absolute 6.52 [place] WBC (Bld) [#/Vol] 7.5 10*3/uL [place] WBC (Bld) [#/Vol] 0.0 10*3/uL 0.0 per 10 0 WBC [place] WBC Morphology NOT REPORTED [place] CBC with Diffon 08-02-2019 Abs. Basophil 0.00 k/uL Normal 0.0-0.2 [facility] Comment on above: Performed By: #### D CITLALY, LIP, CMPX, TROPI, BNP, CDP, PT #### [address] [place] [id number] Assembler Ping Pong Table: Sami Dominguez MD Abs.Imm.Granulocyte 0.00 k/uL Normal 0.00-0.30 [facility] Comment on above: Performed By: #### D CITLALY, LIP, CMPX, TROPI, BNP, CDP, PT #### [facility] [address] [place], [facility]83 As[employer]er Ping Pong Table: Sami Dominguez MD Abs.Neutrophil (Seg) 6.52 k/uL Normal 1.50-8.10 [facility] Comment on above: Performed By: #### D CITLALY, LIP, CMPX, TROPI, BNP, CDP, PT #### [facility] [address] [place] [address] Assembler Ping Pong Table: Sami Dominguez MD Basophils/100 WBC (Bld) 0 % Normal 0-2 M [facility] Comment on above: Performed By: #### D CITLALY, LIP, CMPX, TROPI, BNP, CDP, PT #### [facility] [address] [place], [place] [address] Assembler Ping Pong Table: Sami Dominguez MD Eosinophils (Bld) [#/Vol] 0.08 10*3/uL Normal 0.00-0.44 [facility] Comment on above: Performed By: #### D CITLALY, LIP, CMPX, TROPI, BNP, CDP, PT #### [facility] [address] [place], [facility] Assembler Ping Pong Table: Sami Dominguez MD Eosinophils/100 WBC (Bld) 1 % Normal 1-4 [facility] Comment on above: Performed By: #### D CITLALY, LIP, CMPX, TROPI, BNP, CDP, PT #### [facility] [address] [place], [place] [address] Assembler Ping Pong Table: Sami Dominguez MD Immature granulocytes (Bld) [#/Vol] 0 % Normal 0 [facility] Comment on above: Performed By: #### D CITLALY, LIP, CMPX, TROPI, BNP, CDP, PT #### [address] [place], [facility] Assembler Ping Pong Table: Sami Dominguez MD Lymphocytes (Bld) [#/Vol] 0.90 10*3/uL Low 1.10-3.70 [facility] Comment on above: Performed By: #### D CITLALY, LIP, CMPX, TROPI, BNP, CDP, PT #### [facility] [address] [place], [facility] Assembler Ping Pong Table: Sami Dominguez MD Lymphocytes/100 WBC (Bld) 12 % Low 24-43 [facility] Comment on above: Performed By: #### D CITLALY, LIP, CMPX, TROPI, BNP, CDP, PT #### [facility] [address] [place], [facility] As[employer]er Ping Pong Table: Sami Dominguez MD Monocytes (Bld) [#/Vol] 0.00 10*3/uL Low 0.10-1.20 [facility] Comment on above: Performed By: #### D CITLALY, LIP, CMPX, TROPI, BNP, CDP, PT #### [facility] [address] [place] [address] Assembler Ping Pong Table: Sami Dominguez MD Monocytes/100 WBC (Bld) 0 % Low 3-12 M [facility] Comment on above: Performed By: #### D CITLALY, LIP, CMPX, TROPI, BNP, CDP, PT #### [facility] [address] [place] [address] Assembler Ping Pong Table: Sami Dominguez MD Morphology Geovany (Bld) [Interp] Normal Normal [facility] Comment on above: Performed By: #### D CITLALY, LIP, CMPX, TROPI, BNP, CDP, PT #### [address] [place], [place] [id number] Assembler Ping Pong Table: Sami Dominguez MD Neutrophil (Seg) 87 % High 36-65 [facility] Comment on above: Performed By: #### D CITLALY, LIP, CMPX, TROPI, BNP, CDP, PT #### [address] [place] [address] Assembler Ping Pong Table: Sami Dominguez MD Erythrocyte distribution width (RBC) [Ratio] 13.2 % Normal 11.8-14.4 [facility] Comment on above: Performed By: #### D CITLALY, LIP, CMPX, TROPI, BNP, CDP, PT #### [facility] [address] [place] [address] Assembler Ping Pong Table: Sami Dominguez MD Hematocrit (Bld) [Volume fraction] 33.7 % Low 36.3-47.1 [facility] Comment on above: Performed By: #### D CITLALY, LIP, CMPX, TROPI, BNP, CDP, PT #### [facility] [address] [place], [place] [id number] Assembler Ping Pong Table: Sami Dominguez MD Hemoglobin (Bld) [Mass/Vol] 10.7 g/dL Low 11.9-15.1 [facility] Comment on above: Performed By: #### D CITLALY, LIP, CMPX, TROPI, BNP, CDP, PT #### [facility] [address] [place], [facility]83 Assembler Ping Pong Table: Sami Dominguez MD MCH (RBC) [Entitic mass] 30.2 pg Normal 25.2-33.5 [facility] Comment on above: Performed By: #### D CITLALY, LIP, CMPX, TROPI, BNP, CDP, PT #### [address] [place] [facility]83 Assembler Ping Pong Table: Sami Dominguez MD MCHC (RBC) [Mass/Vol] 31.8 g/dL Normal 28.4-34.8 [facility] Comment on above: Performed By: #### D CITLALY, LIP, CMPX, TROPI, BNP, CDP, PT #### [address] [place], [facility]83 Assembler Ping Pong Table: Sami Dominguez MD MCV (RBC) [Entitic vol] 95.2 fL Normal 82.6-102.9 [facility] Comment on above: Performed By: #### D CITLALY, LIP, CMPX, TROPI, BNP, CDP, PT #### [facility] [address] [place], [facility]83 Assembler Ping Pong Table: Sami Dominguez MD NRBC Automated 0.0 per 100 WBC Normal 0.0 [facility] Comment on above: Performed By: #### D CITLALY, LIP, CMPX, TROPI, BNP, CDP, PT #### [facility] [address] [place] [address] Assembler Ping Pong Table: Sami Dominguez MD Platelet mean volume (Bld) [Entitic vol] 8.6 fL Normal 8.1-13.5 [facility] Comment on above: Performed By: #### D CITLALY, LIP, CMPX, TROPI, BNP, CDP, PT #### [facility] [address] [place], [place] [id number] Assembler Ping Pong Table: Sami Dominguez MD Platelets (Bld) [#/Vol] 335 10*3/uL Normal 138-453 [facility] Comment on above: Performed By: #### D CITLALY, LIP, CMPX, TROPI, BNP, CDP, PT #### [facility] [address] [place], [facility] Assembler Ping Pong Table: Sami Dominguez MD RBC (Bld) [#/Vol] 3.54 10*6/uL Low 3.95-5.11 [facility] Comment on above: Performed By: #### D CITLALY, LIP, CMPX, TROPI, BNP, CDP, PT #### [facility] [address] [place], [facility] Assembler Ping Pong Table: Sami Dominguez MD WBC (Bld) [#/Vol] 7.5 10*3/uL Normal 3.5-11.3 [facility] Comment on above: Performed By: #### D CITLALY, LIP, CMPX, TROPI, BNP, CDP, PT #### [facility] [address] [place], [facility] Assembler Ping Pong Table: Sami Dominguez MD Auto Diff Performed NOT REPORTED Normal [facility] Comment on above: Performed By: #### D CITLALY, LIP, CMPX, TROPI, BNP, CDP, PT #### [facility] [address] [place], [place] [id number] Assembler Ping Pong Table: Sami Dominguez MD Platelets (Bld) [#/Vol] NOT REPORTED Normal [facility] Comment on above: Performed By: #### D CITLALY, LIP, CMPX, TROPI, BNP, CDP, PT #### [facility] [address] [place], [place] [id number] Assembler Ping Pong Table: Sami Dominguez MD RBC morphology finding Nom (Bld) NOT REPORTED Normal [facility] Comment on above: Performed By: #### D CITLALY, LIP, CMPX, TROPI, BNP, CDP, PT #### [facility] [address] [place] [address] Assembler Ping Pong Table: Sami Dominguez MD WBC Morphology NOT REPORTED Normal [facility] Comment on above: Performed By: #### D CITLALY, LIP, CMPX, TROPI, BNP, CDP, PT #### [facility] [address] [place] [address] Assembler Ping Pong Table: Sami Dominguez MD CTA CHEST ABDOMEN PELVIS [...] Yunier Yang MD 08/02/19 Final result Normal [facility] Moshe, pn Incoming Radiant Results From [facility] - 08/02/2019 1:21 PM EDT EXAMINATION: CTA [...] recommended. Reference: J Am Danika Radiol 2013;10:675-681 [place] EXAMINATION: CTA OF THE CHEST, ABDOMEN [...] and caliber without aneurysmal dilatation or dissection. [place] No evidence for aneurysmal dilatation or dissection of the aorta or its branches. Findings most compatible with polycystic kidney disease. Subtle inflammation adjacent to the descending colon is suggestive of subtle colitis. No perforation or abscess formation. No free intraperitoneal air or fluid. 4.1 cm benign appearing ovarian cyst No follow-up imaging is recommended. Reference: J Am Danika Radiol 2013;10:675-681 [place] Comp Metabolic Pr/rfx MGon 1 (cont.) Normal [facility] Comment on above: Result Comment: Aver age GFR for 40-49 years old: 99 mL/min/1.73sq m Chronic Kidney Disease: <60 mL/min/1.73sq m Kidney failure: <15 mL/min/1.73sq m eGFR calculated using average adult body mass. Additional eGFR calculator available at: http://www.[employer]/multiple_crcl_2012.htm Performed By: #### D CITLALY, LIP, CMPX, TROPI, BNP, CDP, PT #### [facility] [address] [place] [address] Assembler Ping Pong Table: Sami Dominguez MD Albumin [Mass/Vol] 4.4 g/dL Normal 3.5-5.2 [facility] Comment on above: Performed By: #### D CITLALY, LIP, CMPX, TROPI, BNP, CDP, PT #### [facility] [address] [place] [address] Assembler Ping Pong Table: Saim Dominguez MD Albumin/Globulin [Mass ratio] 1.0 {ratio} Normal 1.0-2.5 [facility] Comment on above: Performed By: #### D CITLALY, LIP, CMPX, TROPI, BNP, CDP, PT #### [facility] [address] [place], [place] [id number] Assembler Ping Pong Table: Sami Dominguez MD Alkaline Phos 98 U/L Normal 35-104 [facility] Comment on above: Performed By: #### D CITLALY, LIP, CMPX, TROPI, BNP, CDP, PT #### [facility] [address] [place], [place] [address] Assembler Ping Pong Table: Sami Dominguez MD ALT [Catalytic activity/Vol] 16 U/L Normal 5-33 [facility] Comment on above: Performed By: #### D CITLALY, LIP, CMPX, TROPI, BNP, CDP, PT #### [facility] [address] [place], [place] [address] Assembler Ping Pong Table: Sami Dominguez MD Anion gap [Moles/Vol] 18 mmol/L High 9-17 [facility] Comment on above: Performed By: #### D CITLALY, LIP, CMPX, TROPI, BNP, CDP, PT #### [facility] [address] [place] [address] Assembler Ping Pong Table: Sami Dominguez MD AST [Catalytic activity/Vol] 18 U/L Normal <32 [facility] Comment on above: Performed By: #### D CITLALY, LIP, CMPX, TROPI, BNP, CDP, PT #### [facility] [address] [place], [place] [address] Assembler Ping Pong Table: Sami Dominguez MD Bilirubin Ql (U) 0.31 mg/dL Normal 0.3-1.2 [facility] Comment on above: Performed By: #### D CITLALY, LIP, CMPX, TROPI, BNP, CDP, PT #### [facility] [address] [place] [address] Assembler Ping Pong Table: Sami Dominguez MD BUN/CRE Ratio 13 Normal 9-20 [facility] Comment on above: Performed By: #### D CITLALY, LIP, CMPX, TROPI, BNP, CDP, PT #### [facility] [address] [place] [address] Assembler Ping Pong Table: Sami Dominguez MD Calcium [Mass/Vol] 9.7 mg/dL Normal 8.6-10.4 [facility] Comment on above: Performed By: #### D CITLALY, LIP, CMPX, TROPI, BNP, CDP, PT #### [facility] [address] [place], [place] [id number] Assembler Ping Pong Table: Sami Dominguez MD Chloride [Moles/Vol] 95 mmol/L Low 98-107 [facility] Comment on above: Performed By: #### D CITLALY, LIP, CMPX, TROPI, BNP, CDP, PT #### [facility] [address] [place] [address] Assembler Ping Pong Table: Sami Dominguez MD CO2 [Moles/Vol] 18 mmol/L Low 20-31 [facility] Comment on above: Performed By: #### D CITLALY, LIP, CMPX, TROPI, BNP, CDP, PT #### [address] [place] [address] Assembler Ping Pong Table: Sami Dominguez MD Creatinine [Mass/Vol] 3.07 mg/dL High 0.50-0.90 [facility] Comment on above: Performed By: #### D CITLALY, LIP, CMPX, TROPI, BNP, CDP, PT #### [facility] [address] [place], [place] [id number] Assembler Ping Pong Table: Sami Dominguez MD GFR, Amer 20 mL/min Low >60 [facility] Comment on above: Performed By: #### D CITLALY, LIP, CMPX, TROPI, BNP, CDP, PT #### [facility] [address] [place], [place] [id number] Assembler Ping Pong Table: Sami Dominguez MD GFR,non Amer 17 mL/min Low >60 [facility] Comment on above: Performed By: #### D CITLALY, LIP, CMPX, TROPI, BNP, CDP, PT #### [facility] [address] [place] [address] Assembler Ping Pong Table: Sami Dominguez MD Glucose [Mass/Vol] 89 mg/dL Normal 70-99 [facility] Comment on above: Performed By: #### D CITLALY, LIP, CMPX, TROPI, BNP, CDP, PT #### [facility] [address] [place] [address] Assembler Ping Pong Table: Sami Dominguez MD Potassium [Moles/Vol] 3.9 mmol/L Normal 3.7-5.3 [facility] Comment on above: Performed By: #### D CITLALY, LIP, CMPX, TROPI, BNP, CDP, PT #### [facility] [address] [place] [address] Assembler Ping Pong Table: Sami Dominguez MD Protein [Mass/Vol] 8.8 g/dL High 6.4-8.3 [facility] Comment on above: Performed By: #### D CITLALY, LIP, CMPX, TROPI, BNP, CDP, PT #### [facility] [address] [place] [address] Assembler Ping Pong Table: Sami Dominguez MD Sodium [Moles/Vol] 131 mmol/L Low 135-144 [facility] Comment on above: Performed By: #### D CITLALY, LIP, CMPX, TROPI, BNP, CDP, PT #### [facility] [address] [place] [address] Assembler Ping Pong Table: Sami Dominguez MD Staging: Normal [facility] Comment on above: Result Comment: Stag e 1: Some kidney damage normal GFR Stage 2: Mild kidney damage GFR 60-89 Stage 3: Moderate kidney damage GFR 30-59 Stage 4: Severe kidney damage GFR 15-29 Stage 5: Severe kidney damage GFR <15 ESRD - chronic treatment by dialysis or transplant Performed By: #### D CITLALY, LIP, CMPX, TROPI, BNP, CDP, PT #### [facility] [address] [place] [address] Assembler Ping Pong Table: Sami Dominguez MD Urea nitrogen [Mass/Vol] 39 mg/dL High 6-20 [facility] Comment on above: Performed By: #### D CITLALY, LIP, CMPX, TROPI, BNP, CDP, PT #### [facility] [address] [place] [address] Assembler Ping Pong Table: Sami Dominguez MD Comprehensive Metabolic Pane l w/ Reflex to MGon 08-02-2019 Albumin [Mass/Vol] 4.4 g/dL 3.5 - 5.2 g/dL [place] Albumin/Globulin [Mass ratio] 1.0 {ratio} [place] ALP [Catalytic activity/Vol] 98 U/L 35 - 104 U/L [place] ALT [Catalytic activity/Vol] 16 U/L 5 - 33 U/L [place] Anion gap [Moles/Vol] 18 mmol/L High 9 - 17 mmol/L [place] AST [Catalytic activity/Vol] 18 U/L <32 [place] Bilirubin Ql (U) 0.31 mg/dL 0.3 - 1.2 mg/dL [place] Bun/Cre Ratio 13 [place] Calcium [Mass/Vol] 9.7 mg/dL 8.6 - 10. 4 mg/dL [place] Chloride [Moles/Vol] 95 mmol/L Low 98 - 10 7 mmol/L [place] CO2 [Moles/Vol] 18 mmol/L Low 20 - 31 mmol/L [place] Creatinine [Mass/Vol] 3.07 mg/dL High 0.5 - 0.9 mg/dL [place] GFR 20 mL/min Low >60 [place] GFR Non- 17 mL/min Low >60 [place] Glucose [Mass/Vol] 89 mg/dL 70 - 99 mg/dL [place] Interpretation and review of laboratory results Abnormal [place] Potassium [Moles/Vol] 3.9 mmol/L 3.7 - 5.3 mmol/L [place] Protein [Mass/Vol] 8.8 g/dL High 6.4 - 8.3 g/dL [place] Sodium [Moles/Vol] 131 mmol/L Low 135 - 144 mmol/L [place] Urea nitrogen [Mass/Vol] 39 mg/dL High 6 - 20 mg/dL [place] D-Dimer Teston 08-02-2019 D-Dimer Test 1.15 mg/L FEU High 0.19-0.50 [facility] Comment on above: Result Comment: Elevated [...] CMPX, TROPI, BNP, CDP, PT #### [facility] [address] [place] [address] Assembler Ping Pong Table: Sami Dominguez MD D-Dimer, Quantitativeon 07-07 D-Dimer, Quant 1.15 [place] Comment on above: Elevated levels of [...] Interpretation and review of laboratory results Abnormal [place] Lactate, Sepsison 08-02-2019 Lactic Acid, Sepsis 3.6 mmol/L High 0.5-1.9 [facility] Comment on above: Performed By: #### L ACDS #### [facility] [address] [place] [address] Assembler Ping Pong Table: Sami Dominguez MD Lactic Acid,Sep Wbld NOT REPORTED Normal 0.5-1.9 [facility] Comment on above: Performed By: #### L ACDS #### [facility] [address] [place] [id number] Assembler Ping Pong Table: Sami Dominguez MD Interpretation and review of laboratory results Abnormal [place] Lactic Acid, Sepsis 3.6 mmol/L High 0.5 - 1. 9 mmol/L [place] Lactic Acid, Sepsis, Whole Blood NOT REPORTED 0.5 - 1.9 mmol/L [place] Lactic Acidon 08-02-2019 Lactate [Moles/Vol] 1.0 mmol/L Normal 0.5-2.2 [facility] Comment on above: Performed By: #### D CITLALY, LIP, CMPX, TROPI, BNP, CDP, PT #### [facility] [address] [place] [address] Assembler Ping Pong Table: Sami Dominguez MD Lactate [Moles/Vol] NOT REPORTED Normal 0.7-2.1 [facility] Comment on above: Performed By: #### D CITLALY, LIP, CMPX, TROPI, BNP, CDP, PT #### [facility] [address] [place] [address] Assembler Ping Pong Table: Sami Dominguez MD Lactic Acid, Plasmaon 2018 Lactate [Moles/Vol] 1 mmol/L 0.5 - 2. 2 mmol/L [place] Lactic Acid, Whole Blood NOT REPORTED 0.7 - 2.1 mmol/L [place] Lipaseon 08-02-2019 Lipase [Catalytic activity/Vol] 38 U/L Normal 13-60 [facility] Comment on above: Performed By: #### D CITLALY, LIP, CMPX, TROPI, BNP, CDP, PT #### [facility] [address] [place] [address] Assembler Ping Pong Table: Sami Dominguez MD Lipase [Catalytic activity/Vol] 38 U/L 13 - 60 U/L [place] Metabolic Panelon 08-02-2019 GFR/1.73 sq M predicted among non-blacks MDRD (S/P/Bld) [Vol rate/Area] [place] Comment on above: Stage 1: Some [...] body mass. Additional eGFR calculator available at: http://www.[employer]/multiple_crcl_2012.htm Microscopic Urinalysison Amorphous, UA NOT REPORTED None [place] Bacteria, UA 1+ Abnormal None [place] Casts UA NOT REPORTED /LPF [place] Crystals UA NOT REPORTED None /HPF [place] Epithelial Cells UA 2 TO 5 [place] Interpretation and review of laboratory results Abnormal [place] Mucus, UA NOT REPORTED None [place] Other Observations UA NOT REPORTED NOT REQ. [place] RBC (U) [#/Vol] None [place] Renal Epithelial, Urine NOT REPORTED 0 /HPF [place] Trichomonas, UA NOT REPORTED None [place] WBC, UA 50 TO 100 [place] Yeast, UA NOT REPORTED None [place] PTon 08-02-2019 INR Coag (PPP) [Relative time] 1.0 {INR} Normal 0.9-1.2 [facility] Comment on above: Performed By: #### D CITLALY, LIP, CMPX, TROPI, BNP, CDP, PT #### [facility] [address] [place] [address] Assembler Ping Pong Table: Sami Dominguez MD PT Coag (PPP) [Time] 10.0 s Normal 9.7-12.2 [facility] Comment on above: Performed By: #### D CITLALY, LIP, CMPX, TROPI, BNP, CDP, PT #### [facility] [address] [place] [address] Assembler Ping Pong Table: Sami Dominguez MD Protime-INRon 08-02-2019 INR Coag (PPP) [Relative time] 1.0 {INR} [place] PT Coag (PPP) [Time] 10 s [place] Troponinon 08-02-2019 Troponin I.cardiac [Mass/Vol] ng/mL Normal <0.03 [facility] Comment on above: Result Comment: Trop onin T results cannot be compared to Troponin-I results. Performed By: #### D CITLALY, LIP, CMPX, TROPI, BNP, CDP, PT #### [facility] [address] [place] [address] Assembler Ping Pong Table: Sami Dominguez MD Troponin I.cardiac [Mass/Vol] Normal [facility] Comment on above: Result Comment: Refe [...] CMPX, TROPI, BNP, CDP, PT #### [facility] [address] [place] [address] Assembler Ping Pong Table: Sami Dominguez MD Troponin I.cardiac [Mass/Vol] NOT REPORTED Normal 0-14 [facility] Comment on above: Performed By: #### D CITLALY, LIP, CMPX, TROPI, BNP, CDP, PT #### [facility] [address] [place] [address] Assembler Ping Pong Table: Sami Dominguez MD Troponin I.cardiac [Mass/Vol] [place] Comment on above: Reference Range: <0.03 [...] diagnosis. Troponin T.cardiac [Mass/Vol] ug/L <0.03 ng/mL [place] Comment on above: Troponin T results c annot be compared to Troponin-I results. Troponin, High Sensitivity NOT REPORTED 0 - 14 ng/L [place] Troponin I.cardiac [Mass/Vol] ng/mL Normal <0.03 [facility] Comment on above: Result Comment: Trop onin T results cannot be compared to Troponin-I results. Performed By: #### D CITLALY, LIP, CMPX, TROPI, BNP, CDP, PT #### [facility] [address] [place] [address] Assembler Ping Pong Table: Sami Dominguez MD Troponin I.cardiac [Mass/Vol] Normal [facility] Comment on above: Result Comment: Refe [...] CMPX, TROPI, BNP, CDP, PT #### [facility] [address] [place] [address] Assembler Ping Pong Table: Sami Dominguez MD Troponin I.cardiac [Mass/Vol] NOT REPORTED Normal 0-14 [facility] Comment on above: Performed By: #### D CITLALY, LIP, CMPX, TROPI, BNP, CDP, PT #### [facility] [address] [place] [address] Assembler Ping Pong Table: Sami Dominguez MD Troponin I.cardiac [Mass/Vol] [place] Comment on above: Reference Range: <0.03 [...] diagnosis. Troponin T.cardiac [Mass/Vol] ug/L <0.03 ng/mL [place] Comment on above: Troponin T results c annot be compared to Troponin-I results. Troponin, High Sensitivity NOT REPORTED 0 - 14 ng/L [place] UA w/Reflex Cultureon 2018 Acetoacetic Acid,Ur Negative Normal NEG [facility] Comment on above: Performed By: #### D CITLALY, LIP, CMPX, TROPI, BNP, CDP, PT #### [facility] [address] [place] [address] Assembler Ping Pong Table: Sami Dominguez MD Bilirubin, SemiQt,Ur Negative Normal NEG [facility] Comment on above: Performed By: #### D CITLALY, LIP, CMPX, TROPI, BNP, CDP, PT #### [facility] [address] [place] [address] Assembler Ping Pong Table: Sami Dominguez MD Color (U) YELLOW Normal YEL [facility] Comment on above: Performed By: #### D CITLALY, LIP, CMPX, TROPI, BNP, CDP, PT #### [facility] [address] [place] [address] Assembler Ping Pong Table: Sami Dominguez MD Glucose Ql (U) Negative Normal [facility] Comment on above: Performed By: #### D CITLALY, LIP, CMPX, TROPI, BNP, CDP, PT #### [facility] [address] [place] [address] Assembler Ping Pong Table: Sami Dominguez MD Hemoglobin, Ur 1+ Abnormal NEG [facility] Comment on above: Performed By: #### D CITLALY, LIP, CMPX, TROPI, BNP, CDP, PT #### [facility] [address] [place], [place] [id number] Assembler Ping Pong Table: Sami Dominguez MD Leukocyte esterase Test strip Ql (U) MODERATE Abnormal NEG [facility] Comment on above: Performed By: #### D CITLALY, LIP, CMPX, TROPI, BNP, CDP, PT #### [facility] [address] [place] [address] [place], [place] [id number] Assembler Ping Pong Table: Sami Dominguez MD Nitrite,Ur Negative Normal [facility] Comment on above: Performed By: #### D CITLALY, LIP, CMPX, TROPI, BNP, CDP, PT #### [address] [place], [place] [id number] Assembler Ping Pong Table: Saim Dominguez MD pH (U) 6.0 [pH] Normal 5.0-9.0 [facility] Comment on above: Performed By: #### D CITLALY, LIP, CMPX, TROPI, BNP, CDP, PT #### [facility] [address] [place] [address] [place], [place] [id number] Assembler Ping Pong Table: Sami Dominguez MD Protein Ql (U) TRACE Abnormal [facility] Comment on above: Performed By: #### D CITLALY, LIP, CMPX, TROPI, BNP, CDP, PT #### [facility] [address] [place] [address] Assembler Ping Pong Table: Sami Dominguez MD Specific gravity (U) [Rel density] 1.010 Normal 1.010-1.020 [facility] Comment on above: Performed By: #### D CITLALY, LIP, CMPX, TROPI, BNP, CDP, PT #### [facility] [address] [place] [address] Assembler Ping Pong Table: Sami Dominguez MD Turbidity CLEAR Normal CLEAR [facility] Comment on above: Performed By: #### D CITLALY, LIP, CMPX, TROPI, BNP, CDP, PT #### [facility] [address] [place] [address] Assembler Ping Pong Table: Sami Dominguez MD Urobilinogen,Ur Normal Normal NORM [facility] Comment on above: Performed By: #### D CITLALY, LIP, CMPX, TROPI, BNP, CDP, PT #### [facility] [address] [place] [address] Assembler Ping Pong Table: Sami Dominguez MD Comment NOT REPORTED Normal [facility] Comment on above: Performed By: #### D CITLALY, LIP, CMPX, TROPI, BNP, CDP, PT #### [facility] [address] [place] [address] [place] [address] Assembler Ping Pong Table: Sami Dominguez MD Urinalysis Reflex to Culture on 08-02-2019 Bilirubin Urine Negative NEGATIVE [place] Color, UA YELLOW YELLOW [place] Glucose, Ur Negative NEGATIVE [place] Interpretation and review of laboratory results Abnormal [place] Ketones Ql (U) Negative NEGATIVE [place] Leukocyte esterase Test strip Ql (U) MODERATE Abnormal NEGATIVE [place] Nitrite, Urine Negative NEGATIVE [place] pH, UA 6.0 [place] Protein (U) [Mass/Vol] TRACE Abnormal NEGATIVE [facility], [place] Specific [place], UA 1.010 [place], [place] Turbidity UA CLEAR CLEAR [place] Urinalysis Comments NOT REPORTED [place] Urine Hgb 1+ Abnormal NEGATIVE [place] Urobilinogen, Urine Normal Normal [place] Urinalysis,Microon 9 ----- Normal [facility] Comment on above: Performed By: #### D CITLALY, LIP, CMPX, TROPI, BNP, CDP, PT #### [facility] [address] [place] [address] Assembler Ping Pong Table: Sami Dominguez MD Bacteria LM.HPF (Urine sed) [#/Area] 1+ Abnormal [facility] Comment on above: Performed By: #### D CITLALY, LIP, CMPX, TROPI, BNP, CDP, PT #### [facility] [address] [place] [address] Assembler Ping Pong Table: Sami Dominguez MD Epithelial cells LM.HPF (Urine sed) [#/Area] 2 TO 5 Normal 0-25 [facility] Comment on above: Performed By: #### D CITLALY, LIP, CMPX, TROPI, BNP, CDP, PT #### [facility] [address] [place] [address] Assembler Ping Pong Table: Sami Dominguez MD RBC (U) [#/Vol] None Normal 0-2 [facility] Comment on above: Performed By: #### D CITLALY, LIP, CMPX, TROPI, BNP, CDP, PT #### [facility] [address] [place] [address] Assembler Ping Pong Table: Sami Dominguez MD WBC (U) [#/Vol] 50 TO 100 Normal 0-5 [facility] Comment on above: Performed By: #### D CITLALY, LIP, CMPX, TROPI, BNP, CDP, PT #### [facility] [address] [place] [address] Assembler Ping Pong Table: Sami Dominguez MD Amorphous sediment LM Ql (Urine sed) NOT REPORTED Normal [facility] Comment on above: Performed By: #### D CITLALY, LIP, CMPX, TROPI, BNP, CDP, PT #### [facility] [address] [place] [address] Assembler Ping Pong Table: Sami Dominguez MD Casts LM.LPF (Urine sed) [#/Area] NOT REPORTED Normal [facility] Comment on above: Performed By: #### D CITLALY, LIP, CMPX, TROPI, BNP, CDP, PT #### [facility] [address] [place] [address] Assembler Ping Pong Table: Sami Dominguez MD Crystals LM Nom (Urine sed) NOT REPORTED Normal [facility] Comment on above: Performed By: #### D CITLALY, LIP, CMPX, TROPI, BNP, CDP, PT #### [address] [place] [address] Assembler Ping Pong Table: Sami Dominguez MD Epithelial, Renal NOT REPORTED Normal 0 [facility] Comment on above: Performed By: #### D CITLALY, LIP, CMPX, TROPI, BNP, CDP, PT #### [address] [place] [address] Assembler Ping Pong Table: Sami Dominguez MD Mucus Strands NOT REPORTED Normal [facility] Comment on above: Performed By: #### D CITLALY, LIP, CMPX, TROPI, BNP, CDP, PT #### [address] [place] [address] Assembler Ping Pong Table: Sami Dominguez MD Other Observations NOT REPORTED Normal NREQ [facility] Comment on above: Performed By: #### D CITLALY, LIP, CMPX, TROPI, BNP, CDP, PT #### [address] [place], [place] [id number] Assembler Ping Pong Table: Sami Dominguez MD Trichomonas NOT REPORTED Normal [facility] Comment on above: Performed By: #### D CITLALY, LIP, CMPX, TROPI, BNP, CDP, PT #### [facility] [address] [place] [address] Assembler Ping Pong Table: Sami Dominguez MD Yeast LM Ql (Urine sed) NOT REPORTED Normal NONE [facility] Comment on above: Performed By: #### D CITLALY, LIP, CMPX, TROPI, BNP, CDP, PT #### [facility] [address] [place] [address] Assembler Ping Pong Table: Sami Dominguez MD XR CHEST PORTABLEon 08-02-20 [...] Cullen Ngo MD 08/02/19 Final result Normal [facility] EXAMINATION: ONE XRA Y VIEW OF THE CHEST 08/02/2019 12:59 pm COMPARISON: None. HISTORY: ORDERING SYSTEM PROVIDED HISTORY: CP TECHNOLOGIST PROVIDED HISTORY: CP FINDINGS: Heart size and pulmonary vessels are within normal limits. Lungs are clear. No focal infiltrates or significant pleural effusions are seen. There is no acute osseous abnormality. Monitor leads overlie the chest. [place] No acute cardiopulmo nary process. [place] Moshe, [facility] Incoming Radiant Results From [employer] - 08/02/2019 1:10 PM EDT EXAMINATION: ONE [...] the chest. IMPRESSION: No acute cardiopulmonary process. [place] Vital Signs Date Time Vital Sign Value Performing Clinician Facility 10-01-2024 08:19-0500 Body height 154.9 cm Ming Espinoza DO Work Phone: [facility] 10-01-2024 08:19-0500 Body mass index (BMI) [Ratio] 34.2 kg/m2 Ming Espinoza DO Work Phone: [facility] 10-01-2024 08:19-0500 Body weight 82.1 kg Ming Espinoza DO Work Phone: [facility] 10-01-2024 08:19-0500 Diastolic blood pressure 60 mm[Hg] Ming Espinoza DO Work Phone: [facility] 10-01-2024 08:19-0500 Heart rate 88 /min Ming Espinoza DO Work Phone: [facility] 10-01-2024 08:19-0500 SaO2% (BldA) [Mass fraction] 98 % Ming Espinoza DO Work Phone: [facility] 10-01-2024 08:19-0500 Systolic blood pressure 124 mm[Hg] Ming Espinoza DO Work Phone: [facility] 07-27-2024 08:34-0400 Body temperature 97.81 [degF] Lucero Didion REACH [employer]IFT TRUCK DRIVER Work Phone: [facility] 07-27-2024 08:34-0400 Diastolic blood pressure 74 mm[Hg] Lucero Didion REACH [employer] TRUCK DRIVER Work Phone: [facility] 07-27-2024 08:34-0400 Heart rate 83 /min Lucero Didion [employer] TRUCK DRIVER Work Phone: [facility] 07-27-2024 08:34-0400 SaO2% (BldA) [Mass fraction] 98 % Lucero Didion REACH [employer] TRUCK DRIVER Work Phone: [facility] 07-27-2024 08:34-0400 Systolic blood pressure 118 mm[Hg] Lucero Didion REACH LIFT TRUCK DRIVER Work Phone: [facility] 03-15-2024 17:34-0400 Body height 157.48 cm TOOL AND DIE MAKER/DESIGNER Andreia Jerry Work Phone: [facility] 03-15-2024 17:34-0400 Body mass index (BMI) [Ratio] 31.8 kg/m2 [employer]OL [employer] DIE MAKER/DESIGNER Andreia Jerry Work Phone: [facility] 03-15-2024 17:34-0400 Body temperature 100.3 [degF] TOOL AND DIE MAKER/DESIGNER Andreia Jerry Work Phone: [facility] 03-15-2024 17:34-0400 Body weight 78.92 kg TOOL AND DIE MAKER/DESIGNER Andreia Jeryr Work Phone: [facility] 03-15-2024 17:34-0400 Diastolic blood pressure 79 mm[Hg] TOOL AND DIE MAKER/DESIGNER Andreia Jerry Work Phone: [facility] 03-15-2024 17:34-0400 Heart rate 88 /min TOOL AND DIE MAKER/DESIGNER Andreia Jerry Work Phone: [facility] 03-15-2024 17:34-0400 Respiratory rate 18 /min TOOL AND DIE MAKER/DESIGNER Andreia Jerry Work Phone: [facility] 03-15-2024 17:34-0400 SaO2% (BldA) [Mass fraction] 96 % TOOL AND DIE MAKER/DESIGNER Andreia Jerry Work Phone: [facility] 03-15-2024 17:34-0400 Systolic blood pressure 121 mm[Hg] TOOL AND DIE MAKER/DESIGNER Andreia Jerry Work Phone: [facility] 07-30-2022 17:40-0400 Body height 157.48 cm Yaneth Toni Other [facility] Other 07-30-2022 17:40-0400 Body mass index (BMI) [Ratio] 36.69 kg/m2 Yaneth Toni Other [facility] Other 07-30-2022 17:40-0400 Body temperature 97.4 [degF] Yaneth Toni Other [facility] Other 07-30-2022 17:40-0400 Body weight 90.99 kg Yaneth Toni Other [facility] Other 07-30-2022 17:40-0400 Diastolic blood pressure 85 mm[Hg] Yaneth Toni Other [facility] Other 07-30-2022 17:40-0400 Respiratory rate 18 /min Yaneth Toni Other [facility] Other 07-30-2022 17:40-0400 SaO2% (BldA) [Mass fraction] 99 % Yaneth Toni Other [facility] Other 07-30-2022 17:40-0400 Systolic blood pressure 124 mm[Hg] Yaneth Toni Other [facility] Other 07-03-2022 09:45-0400 Body height 157.48 cm Estefania Vo Other [facility] Other 07-03-2022 09:45-0400 Body mass index (BMI) [Ratio] 36.76 kg/m2 Estefania Vo Other [facility] Other 07-03-2022 09:45-0400 Body temperature 97 [degF] Estefania Vo Other [facility] Other 07-03-2022 09:45-0400 Body weight 91.17 kg Estefania Vo Other [facility] Other 07-03-2022 09:45-0400 Diastolic blood pressure 60 mm[Hg] Estefania Vo Other [facility] Other 07-03-2022 09:45-0400 SaO2% (BldA) [Mass fraction] 99 % Estefania Vo Other [facility] Other 07-03-2022 09:45-0400 Systolic blood pressure 110 mm[Hg] Estefania Vo Other [facility] Other 06-20-2022 16:10-0400 Diastolic blood pressure 68 mm[Hg] DO Ming Espinoza Work Phone: [facility] 06-20-2022 16:10-0400 Heart rate 69 /min DO Ming Espinoza Work Phone: [facility] 06-20-2022 16:10-0400 Respiratory rate 18 /min DO Ming Espinoza Work Phone: [facility] 06-20-2022 16:10-0400 SaO2% (BldA) [Mass fraction] 100 % DO Ming Espinoza Work Phone: [facility] 06-20-2022 16:10-0400 Systolic blood pressure 126 mm[Hg] DO Ming Alexis Work Phone: [facility] 06-20-2022 13:15-0400 Body height 157.48 cm DO Ming Alexis Work Phone: [facility] 06-20-2022 13:15-0400 Body temperature 98.6 [degF] DO Ming Alexis Work Phone: [facility] 06-20-2022 13:15-0400 Body weight 91.5 kg DO Ming Alexis Work Phone: [facility] 06-18-2022 10:45-0400 Diastolic blood pressure 79 mm[Hg] DO Ming Alexis Work Phone: [facility] 06-18-2022 10:45-0400 Heart rate 66 /min DO Ming Espinoza Work Phone: [facility] 06-18-2022 10:45-0400 Respiratory rate 16 /min DO Ming Espinoza Work Phone: [facility] 06-18-2022 10:45-0400 SaO2% (BldA) [Mass fraction] 100 % DO Ming Espinoza Work Phone: [facility] 06-18-2022 10:45-0400 Systolic blood pressure 130 mm[Hg] DO Ming Espinoza Work Phone: [facility] 06-18-2022 08:08-0400 Body mass index (BMI) [Ratio] 37.8 kg/m2 DO Ming Espinoza Work Phone: [facility] 06-18-2022 07:41-0400 Body height 157.48 cm DO Ming Espinoza Work Phone: [facility] 06-18-2022 07:41-0400 Body weight 93.89 kg DO Ming Espinoza Work Phone: [facility] 06-18-2022 06:26-0400 Body temperature 98.5 [degF] DO Ming Espinoza Work Phone: [facility] 05-30-2022 11:00-0400 Body height 157.48 cm Jesus Parham Other [facility] [employer] Other 05-30-2022 11:00-0400 Body mass index (BMI) [Ratio] 36.76 kg/m2 Jesus Parham Other [facility] Other 05-30-2022 11:00-0400 Body temperature 97.6 [degF] Jesus Parham Other [facility] Other 05-30-2022 11:00-0400 Body weight 91.17 kg Jesus Chungjaclyn Other [facility] Other 05-30-2022 11:00-0400 Diastolic blood pressure 76 mm[Hg] Jesus Chungjaclyn Other [facility] Other 05-30-2022 11:00-0400 SaO2% (BldA) [Mass fraction] 98 % Jesus Chungjaclyn Other [facility] Other 05-30-2022 11:00-0400 Systolic blood pressure 128 mm[Hg] Jesus Dione Other [facility] Other 05-02-2022 14:40-0400 Body height 157.48 cm Yaneth Otni Other [facility] Other 05-02-2022 14:40-0400 Body mass index (BMI) [Ratio] 36.76 kg/m2 Yaneth Toni Other [facility] Other 05-02-2022 14:40-0400 Body temperature 97.7 [degF] Yaneth Toni Other [facility] Other 05-02-2022 14:40-0400 Body weight 91.17 kg Yaneth Toni Other [facility] Other 05-02-2022 14:40-0400 Diastolic blood pressure 88 mm[Hg] Yaneth Toni Other [facility] Other 05-02-2022 14:40-0400 Respiratory rate 18 /min Yaneth Toni Other [facility] Other 05-02-2022 14:40-0400 SaO2% (BldA) [Mass fraction] 98 % Yaneth Toni Other [facility] Other 05-02-2022 14:40-0400 Systolic blood pressure 121 mm[Hg] Yaneth Toni Other [facility] Other 04-30-2022 10:10-0400 Body height 157.48 cm Dipika Shantell Other [facility] Other 04-30-2022 10:10-0400 Body mass index (BMI) [Ratio] 37.86 kg/m2 Dipika Shantell Other [facility] Other 04-30-2022 10:10-0400 Body temperature 97.4 [degF] Dipika Stinson Other [facility] Other 04-30-2022 10:10-0400 Body weight 93.9 kg Dipika Shantell Other [facility] Other 04-30-2022 10:10-0400 Diastolic blood pressure 80 mm[Hg] Dipika Stinson Other [facility] Other 04-30-2022 10:10-0400 Respiratory rate 16 /min Dipika Shantell Other [facility] Other 04-30-2022 10:10-0400 SaO2% (BldA) [Mass fraction] 100 % Dipika Stinson Other [facility] Other 04-30-2022 10:10-0400 Systolic blood pressure 117 mm[Hg] Dipika Stinson Other [facility] Other 04-01-2022 09:13-0400 Diastolic blood pressure 62 mm[Hg] DO Ming Espinoza Work Phone: [facility] 04-01-2022 09:13-0400 Heart rate 83 /min DO Ming Espinoza Work Phone: [facility] 04-01-2022 09:13-0400 Respiratory rate 16 /min DO Ming Espinoza Work Phone: [facility] 04-01-2022 09:13-0400 SaO2% (BldA) [Mass fraction] 97 % DO Ming Espinoza Work Phone: [facility] 04-01-2022 09:13-0400 Systolic blood pressure 101 mm[Hg] DO Ming Espinoza Work Phone: [facility] 04-01-2022 07:23-0400 Body height 157.48 cm DO Ming Espinoza Work Phone: [facility] 04-01-2022 07:23-0400 Body mass index (BMI) [Ratio] 37.8 kg/m2 DO Ming Espinoza Work Phone: [facility] 04-01-2022 07:23-0400 Body temperature 97.8 [degF] DO Ming Espinoza Work Phone: [facility] 04-01-2022 07:23-0400 Body weight 93.89 kg DO Ming Espinoza Work Phone: [facility] 12-06-2021 16:20-0500 Body height 157.48 cm Yaneth Toni Other [facility] [employer] Other 12-06-2021 16:20-0500 Body mass index (BMI) [Ratio] 37.86 kg/m2 Yaneth Toni Other [facility] Other 12-06-2021 16:20-0500 Body weight 93.9 kg Yaneth Toni Other [facility] Other 12-06-2021 16:20-0500 Diastolic blood pressure 89 mm[Hg] Yaneth Toni Other [facility] Other 12-06-2021 16:20-0500 Respiratory rate 18 /min Yaneth Toni Other [facility] Other 12-06-2021 16:20-0500 SaO2% (BldA) [Mass fraction] 97 % Yaneth Toni Other [facility] Other 12-06-2021 16:20-0500 Systolic blood pressure 134 mm[Hg] Yaneth Toni Other [facility] Other 08-02-2019 16:35-0400 Body Temperature 99.3 [degF] [facility] [place] [facility] 16:27-0400 Pulse (Heart Rate) 110 /min [place], [place] 08-02-2019 16:27-0400 Pulse Oximetry 98 % [facility] , [place] 08-02-2019 16:27-0400 Respiratory Rate 14 /min [place] [facility] [place] 08-02-2019 16:16-0400 BP Diastolic 56 mm[Hg] [facility] , [place] 08-02-2019 16:16-0400 BP Systolic 97 mm[Hg] [facility] , [place] 08-02-2019 14:59-0400 BMI (Body Mass Index) 37.79 kg/m2 [facility], [place] 08-02-2019 14:59-0400 Body weight 90.72 kg [facility] [place] , [place] 08-02-2019 14:59-0400 Height 154.9 cm Vidal [facility] [place] Encounters Encounter Date Encounter Type Care Provider Facility Start: 10-14-2024 End: 10-14-2024 [facility]inis[facility] Result Encounter Generic External Data Provider [facility] External Department Unsolicited Start: 10-14-2024 End: 10-14-2024 [facility] Result Encounter Generic External Data Provider [facility] External Department Unsolicited Start: 10-14-2024 End: 10-14-2024 ambulatory Ming Espinoza DO Work Phone: [facility] Work Phone: Start: 10-14-2024 End: 10-14-2024 Departed Referred Ming Espinoza DO Work Phone: [facility] Start: 10-02-2024 End: 10-02-2024 [facility] Result Encounter Generic External Data Provider [facility] External Department Unsolicited Start: 10-02-2024 End: 10-02-2024 [facility] Result Encounter Generic External Data Provider [facility] External Department Unsolicited Start: 10-01-2024 End: 10-01-2024 Office outpatient visit 40 minutes Ming Espinoza DO Work Phone: [facility] Comment on above: Benign essential hyp ertension ([facility]/HCC) (Primary Dx); Renal transplant recipient (CMS/[facility]); Immunosuppressive management encounter following kidney transplant ([facility]); Anemia of renal disease; Iron deficiency anemia, unspecified iron deficiency anemia type; Type 2 diabetes mellitus with stage 3a chronic kidney disease, without long-term current use of insulin (HCC) (CMS/HCC); Dyslipidemia ([facility]); Fibromyalgia; Need for immunization against influenza Start: 10-01-2024 End: 10-01-2024 ambulatory MING ESPINOZA Not Available Start: 09-14-2024 End: 09-14-2024 Office outpatient visit 10 minutes Blake Hinojosa DO Work Phone: [facility] Comment on above: Cyst of left ovary Start: 09-14-2024 End: 09-14-2024 ambulatory BLAKE HINOJOSA Not Available Start: 08-31-2024 End: 08-31-2024 Clinisync Result Encounter Generic External Data Provider [facility] External Department Unsolicited Start: 08-31-2024 End: 08-31-2024 Clinisync Result Encounter Generic External Data Provider [facility] External Department Unsolicited Start: 08-25-2024 End: 08-25-2024 Patient encounter procedure Ming Espinoza DO Work Phone: [facility] Work Phone: Start: 08-25-2024 End: 08-25-2024 ambulatory Ming Espinoza DO Work Phone: [facility] Work Phone: Start: 08-02-2024 End: 08-03-2024 External [...] procedure DO Ming Espinoza Work Phone: [facility] Work Phone: Start: 08-02-2024 End: 08-02-2024 ambulatory DO Ming Espinoza Work Phone: [facility] Work Phone: Start: 07-31-2024 End: 07-31-2024 Clinisync Result Encounter Generic External Data Provider [facility] External Department Unsolicited Start: 07-31-2024 End: 07-31-2024 Clinisync Result Encounter Generic External Data Provider [facility] External Department Unsolicited Start: 07-27-2024 End: 07-27-2024 Office outpatient visit 15 minutes Lucero Hudson [employer] Work Phone: [facility] Comment on above: Acute non-recurrent pansinusitis (Primary Dx); Side effect of medication Start: 07-27-2024 End: 07-27-2024 ambulatory MING ESPINOZA Not Available Start: 07-07-2024 End: 07-07-2024 ambulatory [facility] Start: 07-02-2024 End: 07-02-2024 ambulatory [facility] Start: 06-29-2024 End: 06-29-2024 Clinisync Result Encounter [...] Department Unsolicited Start: 05-19-2024 End: 05-19-2024 ambulatory [facility] Start: 04-27-2024 End: 04-27-[address] 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 Start: 12-01-2023 End: 12-01-2023 ambulatory MING ESPINOZA Not Available Start: 11-06-2023 End: 11-06-2023 Patient encounter procedure DO Ming Espinoza Work Phone: [facility] [address] Work Phone: Start: 11-06-2023 End: 11-06-2023 ambulatory DO Ming Espinoza Work Phone: [facility] Work Phone: Start: 10-13-2023 End: 10-13-2023 ambulatory MING ESPINOZA Not Available Start: 07-30-2022 End: 07-30-2022 ambulatory Yaneth Toni Other [facility] Other Start: 07-30-2022 Office outpatient vi sit 25 minutes Yaneth Toni [facility] Start: 07-29-2022 End: 07-30-2022 ambulatory YANETH TONI Facility: Start: 07-16-2022 End: 07-16-2022 ambulatory DO Ming Espinoza Work Phone: [facility] Work Phone: Start: 07-16-2022 End: 07-16-2022 Patient encounter procedure DO Ming Espinoza Work Phone: [facility] Start: 07-03-2022 End: 07-03-2022 ambulatory Estefania Vo Other [facility] Other Start: 07-03-2022 Follow-up encounter Estefania Camarillogary [facility] Start: 06-20-2022 End: 06-20-2022 ambulatory Jesus Parham Other [facility] Other Start: 06-20-2022 Telephone encounter Jesus adler [facility] Start: 06-20-2022 End: 06-20-2022 Emergency department patient visit DO Ming Espinoza Work Phone: [facility]Emergency [facility] Start: 06-18-2022 End: 06-18-2022 Admission to same day surgery center DO Ming Espinoza Work Phone: [facility] [place] Start: 06-14-2022 End: 06-14-2022 Patient encounter procedure DO Ming Ibarraman Work Phone: [facility]-Pre-Surgical Testing Start: 06-06-2022 End: 06-07-[address] BRINDA HINOJOSA Facility: Start: 06-05-2022 End: 06-05-2022 Patient encounter procedure DO Ming Espinoza Work Phone: [facility] Start: 06-03-2022 End: 06-03-2022 ambulatory Jesus Parham Other [facility] Other Start: 06-03-2022 Encounter for other preprocedural examination Jesus Parham [facility] Start: 06-03-2022 Telephone encounter Jesus adler [facility] Start: 05-30-2022 End: 05-30-2022 ambulatory Jesus Parham Other [facility] Other Start: 05-30-2022 [facility] visit new patient Jesus Montanez philanna [facility] Start: 05-30-2022 End: 05-30-2022 Patient encounter procedure DO Ming Espinoza Work Phone: [facility]Ul[facility] Start: 05-29-[address] BLAKE HINOJOSA [facility] ity:H1 Start: 05-02-2022 End: 05-02-2022 ambulatory Yaneth Toni Other [facility] Other Start: 05-02-2022 Office outpatient vi sit 25 minutes Yaneth Toni [facility] Neph[facility] Start: 04-30-2022 End: 04-30-2022 ambulatory Dipika Stinson Other [facility] Other Start: 04-30-2022 Office outpatient vi sit 15 minutes Dipika Stinson [facility] Start: 04-30-2022 Encounter for preprocedural laboratory examination YANETH TONI [facility] Start: 04-29-2022 Encounter for other preprocedural examination DR DOCTOR ALEJANDRO [facility] Start: 04-27-2022 End: 04-28-2022 Encounter for other preprocedural examination DR MING ESPINOZA Facility:H1 Start: 04-27-2022 End: 04-28-[address] MING ESPINOZA Facility:[facility]1 Start: 04-27-2022 End: 04-28-2022 Encounter for preprocedural laboratory examination YANETH TONI Facility:[facility]1 Start: 04-03-2022 Encounter for other specified special examinations DR DOCTOR ALEJANDRO [facility] Start: 04-01-2022 End: 04-01-2022 Admission to same day surgery center DO Ming Espinoza Work Phone: [facility] Start: 03-29-2022 End: 03-30-[address] DOCTOR ALEJANDRO Facility:[facility]1 Start: 03-29-2022 End: 03-30-2022 Encounter for other specified special examinations DR DOCTOR ALEJANDRO Facility:[facility]1 Start: 03-28-2022 End: 03-28-2022 Patient encounter procedure DO Ming Ibarraman Work Phone: [facility] Start: 02-26-2022 End: 02-26-2022 ambulatory Shabbir Jones Other [facility] Other Start: 02-26-2022 Telephone encounter 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 Start: 12-06-2021 End: 12-06-2021 ambulatory Yaneth Toni Other [facility] Other Start: 12-06-2021 Office outpatient vi sit 25 minutes Yaneth Toni [facility] Start: 12-03-2021 End: 12-04-2021 ambulatory YANETH TONI Facility:H1 Start: 09-01-2021 End: 09-02-[address] MING ESPINOZA Facility:[facility]1 Start: 08-02-2019 End: 08-02-2019 Emergency department patient visit [facility] Start: 08-02-2019 End: 08-02-2019 Emergency department patient visit Vidaljasmin Madrigal Work Phone: [facility] ED Comment on above: Acute sepsis (HCC) ( Primary Dx); Acute cystitis without hematuria; Chronic renal failure, stage 4 (severe) (HCC); Polycystic kidney disease Procedures Date Procedure Procedure Detail Performing Clinician Start: 10-14-2024 ALL URINALYSIS Generic External Data Provider Start: 10-02-2024 ALL MAGNESIUM Generic E xternal Data Provider Start: 10-02-2024 ALL PHOSPHOROUS Generic External Data Provider Start: 10-02-2024 ALL URIC ACID Generic E xternal Data Provider Start: 10-02-2024 [facility] CMP (CMP) (FOR [facility] USE) Generic External Data Provider Start: 10-02-2024 METRO BILIRUBIN, DIRECT Generic External Data Provider Start: 08-31-2024 ALL CBC WITH AUTO DIFF Generic External Data Provider Start: 08-31-2024 ALL LIPID PROFILE (FASTING) Generic External Data Provider Start: 08-31-2024 ALL MAGNESIUM Generic E xternal Data Provider Start: 08-31-2024 ALL PHOSPHOROUS Generic External Data Provider Start: 08-31-2024 ALL URIC ACID Generic E xternal Data Provider Start: 08-31-2024 [facility] CMP (CMP) (FOR [facility] USE) Generic External Data Provider Start: 08-31-2024 [...] manufacturers or methods may not be comparable. [facility] shucker and method: [employer] SYSTEM[employer] UNICEL DXI, 2 SITE IMMUNOENZYMATIC SANDWICH ASSAY. Start: 08-02-2024 Plain chest X-ray DO Chong Espinoza Work Phone: Start: 08-02-2024 Carcinoembryonic ant igen cea Blake Hinojosa DO Work Phone: Comment on above: Result Comment: Seri al tumor marker results determined by assays using different manufacturers or methods may not be comparable. [facility] shucker and method: [employer] UNICEL DXI, 2 SITE IMMUNOENZYMATIC ?SANDWICH? ASSAY. PERFORMED BY: [facility] [address] [place] [address] PATHOLOGIST [employer] PL[employer] INTELLIGENCE OFFICER ANAHY MCKEE M.D. Performed By: #### C A125 ####[facility] ,#### CEA ####[facility] [place] [address] [facility] Start: 08-02-2024 Immunoassay tumor an tigen quantitative [...] mammography of bilateral breasts DO Ming Espinoza [employer] Phone: Start: 06-18-2022 Arteriovenous fistulization DO Ming Espinoza [employer] Phone: Start: 05-30-2022 Ultrasound (US) dopp ler flow mapping of vein of upper limb DO Ming Espinoza [employer] Phone: Start: 04-01-2022 Screening colonoscopy D O [...] Screening for malign ant neoplasm of colon [facility] Start: 08-25-2025 Screening for malign ant neoplasm of breast Mammogram [facility] Start: 04-23-2025 Urine screening for protein Diabetes: Urine Protein Screening [facility] Start: 04-01-2025 End: 04-01-2025 Patient encounter procedure 04/01/2025 8:15 AM EDT Office Visit [facility] [address] [place], [place] [address] Ming Espinoza, DO [address] [place] [address] [facility] Start: 10-14-2024 Bacteria identified in Urine by Culture Urine Culture [facility] Start: 10-14-2024 Urine culture [facility] Start: 10-01-2024 End: 10-01-2024 Patient encounter procedure 10/01/2024 8:15 AM EST Office Visit [facility] [address] [place], [place] [address] Ming Espinoza, DO [address] [place] [address] [facility] Start: 09-14-2024 End: 09-14-2024 Patient encounter procedure 09/14/2024 8:45 AM EST Office Visit [facility] OB [address] [place], [place] [address] Blake Hinojosa, DO [address] [place] [address] [facility] Start: 08-26-2024 Urine screening for protein Diabetes: Urine Protein Screening [facility] Start: 08-02-2024 End: 08-02-2024 Patient encounter procedure 08/02/2024 11:00 AM EDT Office Visit [facility] OB [address] [place], [place] [address] Blake Hinojosa, DO [address] [place] [address] [facility] Start: 08-02-2024 End: 08-02-2024 Professional / ancillary services management 08/02/2024 10:15 AM EDT Ancillary Procedure [facility] [address] [place], [place] [address] [facility] Start: 08-02-2024 [facility] Start: 07-24-2024 Hemoglobin A1c measurement Violet betes: Hemoglobin A1C [facility] Start: 06-06-2024 Influenza vaccination Influenza Vacc ine (#1) [facility] Start: 03-16-2024 Bacteria identified in Urine by Culture [facility] Start: 03-15-2024 Bacteria identified in Urine by Culture [facility] Start: 11-06-2023 [facility] Start: 07-29-2023 Urine screening for protein Diabetes: Urine Protein Screening [facility] Start: 07-16-2023 Screening for malign ant neoplasm of breast Mammogram [facility] Start: 06-18-2022 [facility] Start: 06-18-2022 [facility] Start: 04-01-2022 [facility] Work Phone: Start: 06-06-2019 Influenza vaccination Flu vaccine (# 1) [place], [place] Start: 2015 Lipid screen Lipid screen [place], [place] Start: 1996 Cervical cancer screen Cervical canc er screen [place] Start: 1994 DTaP/Tdap/Td vaccine (1 - Tdap) DTaP/Tdap/Td vaccine (1 - Tdap) [place] Start: 1990 HIV screen HIV screen [place], [place] Start: 1985 Glaucoma screening Diabetes: R etinopathy Screening [facility] Start: 1975 Creatinine monitoring Creatinine mon [place], [place] Start: 1975 Potassium monitoring Potassium monit [place], [place] Start: 1975 Screening for malign ant neoplasm of colon [facility] 24 hour urine measurement [facility] Albumin [Mass/volume ] in Serum or Plasma [facility] Albumin/Globulin ratio [facility] Aldolase measurement [facility] End: 08-02-2019 Bacteria identified Cx Nom (U) Urine Culture Microbiology STAT One Time for 1 Occurrences starting 08/02/2019 until 08/02/2019 [place] Comment on above: One Time for 1 Occur rences starting 08/02/2019 until 08/02/2019 Bacteria identified Cx Nom (U) Urine Culture Microbiology STAT 08/02/2019 1:00 PM EDT [place] Bacteria identified in Urine by Culture URINE CULTURE, ROUTINE Lab Routine 06/10/2024 1:35 PM EDT [facility] CA 125 CA 125 Lab Routi ne Cyst of left ovary Ordered: 08/02/2024 [facility] Comment on above: Ordered: 08/02/2024 Cancer Ag 125 [Units/volume] in Serum or Plasma [facility] Carcinoembryonic Ag [Mass/volume] in Serum or Plasma [facility] Lab Routine Cyst of left ovary Ordered: 08/02/2024 [facility] Work Phone: Comment on above: Ordered: 08/02/2024 End: 08-02-2019 Culture blood #1 Culture blood #1 Microbiology STAT One Time for 1 Occurrences starting 08/02/2019 until 08/02/2019 [place] Comment on above: One Time for 1 Occur rences starting 08/02/2019 until 08/02/2019 End: 08-02-2019 Culture blood #2 Culture blood #2 Microbiology STAT One Time for 1 Occurrences starting 08/02/2019 until 08/02/2019 [place] Comment on above: One Time for 1 Occur rences starting 08/02/2019 until 08/02/2019 EKG 12 Lead EKG 12 Lead ECG STAT 08/02/2019 12:25 PM EDT [place] Electrophoresis: [id number] [facility] Electrophoresis: [id number] [facility] Electrophoresis: beta-globulin [facility] Electrophoresis: laura ma globulin [facility] Globulin [Mass/volum e] in Serum [facility] Homogenous nuclear A b pattern [Titer] in Serum [facility] IgA [Mass/volume] in Serum or Plasma [facility] IgG [Mass/volume] in Serum or Plasma [facility] IgM [Mass/volume] in Serum or Plasma [facility] Immunofixation for Urine [facility] Initiate Oxygen Ther apy Protocol Initiate Oxygen Therapy Protocol Respiratory Care Routine Daily until discontinued starting 08/02/2019, 2 [facility] Comment on above: Daily until disconti nued starting 08/02/2019, 2 completed End: 08-02-2019 Lactate, Sepsis Lactate, Sepsis Lab Timed Now Then Every 2hr for 2 Occurrences starting 08/02/2019 until 08/02/2019, 1 completed [facility] Comment on above: Now Then Every 2hr f or 2 Occurrences starting 08/02/2019 until 08/02/2019, 1 completed Measurement of monoc lonal protein concentration [facility] Nuclear Ab [Titer] i n Serum [facility] Patient Education [facility] Work Phone: Patient referral [facility] Work Phone: Potassium [Moles/vol ume] in Serum or Plasma [facility] Work Phone: Protein [Mass/volume ] in Serum or Plasma [facility] Protein [Mass/volume ] in Urine [facility] Serum immunofixation [facility] Immunizations Immunization Date Immunization Notes Care Provider Chirag [facility] 10-01-2024 Influenza, Madin Roman by Canine Kidney, subunit, trivalent, injectable, contains preservative Ming Espinoza DO Work Phone: [facility] 10-26-2023 Influenza, injectabl e, Madin Sarah Canine Kidney, preservative free, quadrivalent Generic Provider [facility] 10-26-2023 influenza virus vacc ine, unspecified formulation Generic Provider [facility] 10-13-2021 COVID-19 Ad26.COV2.S (Ainsley) DO Ming Espinoza Work Phone: [facility] 05-29-2020 influenza, high dose seasonal, preservative-free Generic Provider [facility] 08-11-2019 influenza, injectabl e, madin sarah canine kidney, preservative free Generic Provider [facility] 01-26-2018 pneumococcal polysaccharide vaccine, 23 valent Generic Provider [facility] 07-22-2014 seasonal influenza, intradermal, preservative free Generic Provider [facility] Payers Date Payer Category Payer Private Health Insurance [employer] [id number] 2023 Unknown [employer] M LILLY GANNON [id number] 2023-Present [address] [place] [address] [id number] 2015 Unknown [employer] M [employer] [address] xxxxxxxxx 2015-Present [phone] [address] [place] [address] xxxxxxxxx [id number] 1975 Unknown [id number] 2.16.840.1.727403.3.579. 2.173 1975 Unknown [id number] 2.16.840.1.141296.3.579. 2.593 1975 Unknown [id number] 2.16.840.1.117183.3.579. 2.593 1975 Unknown [id number] 2.16.840.1.220327.3.579. 2.593 1975 Unknown [id number] 2.16.840.1.598358.3.579. 2.593 1975 Unknown [id number] 2.16.840.1.300579.3.579. 2.593 1975 Unknown [id number] 2.16.840.1.881524.3.579. 2.593 1975 Unknown [id number] 2.16.840.1.880067.3.579. 2.593 1975 Unknown [id number] 2.16.840.1.968989.3.579. 2.593 1975 Unknown [id number] 2.16.840.1.821519.3.579. 2.1259 1975 Unknown [id number] 2.16.840.1.689037.3.579. 2.1259 1975 Unknown [id number] 2.16.840.1.741301.3.579. 2.1259 1975 Unknown [id number] 2.16.840.1.771618.3.579. 2.1259 1975 Unknown [id number] 2.16.840.1.687238.3.579. 2.1259 1975 Unknown [id number] 2.16.840.1.274247.3.579. 2.1259 1975 Unknown [id number] 2.16.840.1.725666.3.579. 2.1259 1975 Unknown [id number] 2.16.840.1.482878.3.579. 2.1259 1975 Unknown [id number] 2.16.840.1.100627.3.579. 2.1259 1975 Unknown [id number] 2.16.840.1.919014.3.579. 2.1259 1975 Unknown [id number] 2.16.840.1.471013.3.579. 2.1259 1959 Self-pay [id number] 1959 Unknown [id number] 1959 Unknown [id number] 2.16.840.1.073422.19 Unknown [id number] 2.16.840.1.184080.19 Unknown [id number] 2.16.840.1.125098.3.579. 2.531 Unknown [id number] 2.16.840.1.795779.3.579. 2.531 Unknown [id number] 2.16.840.1.605581.3.579. 2.531 Unknown [id number] 2.16.840.1.530085.3.579. 2.531 Unknown [id number] 2.16.840.1.278456.3.579. 2.531 Social History Date Type Detail Facility [facility] [employer] [facility] [place] Sex Assigned At Not on file [employer] [facility] [place] Start: 04-19-2024 End: 10-01-2024 Sex Assigned At [facility] Other Start: 06-05-2022 End: 06-20-2022 Tobacco smoking status NHIS Never smoked tobacco (finding) [facility] Start: 1975 Sex Assigned At Female [facility] Start: 03-13-2023 Tobacco use and exposure Smokeless tobacco non-user [facility] Start: 07-27-2024 End: 10-01-2024 Alcoholic beverage [...] orientation Heterosexual (finding) [facility] Start: 08-26-2024 End: 10-15-2024 Sex Female (finding) [facility] Medical Equipment Procedure Code Equipment Code Equipment Origin al Text Equipment Identifier Dates Use as instructed [id number] Start: 06-10-2023 End: 06-09-2024 Goals Date Patient Goal Desired Activity /State Clinical Notes 05-17-2020 to 10-21-2024 Carolras Camacho MA - 09/14/2024 8:45 AM ESTHERYolandajohan Camacho MA - 08/02/2024 11:00 AM Dar Hudson NP - 07/27/2024 8:20 AM EDT Note Date & Type Note Facility 10-21-2024 Note Noted patient call t o transplant clinic stating: Pt has uti sx's with low grade fever, chills, abd pain. This coordinator informed pt today per phone order of Dr. Blanchard to reduce Myfortic from 720mg BID to 360mg BID to prevent UTIs and she verbalized understanding but did not share above input with coordinator. Will reach out to MD. Promptly called pt and she is reporting that she has history of fibromyalgia and IBS and that she has chills today that may be weather related (snowing today). Twice last week her sheets were drenched overnight. Says her temp usually above average. Today temp 100.1 on waking then down to 98.1 after getting dressed. Says her urine is dark and odor with first void but then dissipates over the day. Sometimes her fibromyalgia causes nightime sweats, she can have hot flashes and her IBS may have been aggravated last week when she has abdominal pain. Final pt statement: The last time I felt like this she had sepsis and was hospitalized @ [facility] four years ago. She at work today and seems in good humor. [facility] 10-21-2024 Note Pt was notified of n ew order from Dr. Blanchard by phone to complete Keflex 500mg TID for 1 week. Pt informed and verbalized understanding. RX was sent. [facility] 10-21-2024 Note Per phone order of Kody Blanchard. , patient notified via phone call to decrease their medication Myfortic dose twice a day 360 mg , will now be on 360mg twice a day an no need for urology FU at this time. Pt informed by phone and verbalized understanding. [facility] 10-21-2024 Note Pt called wanting to talk to Lu. She has uti sx's with low grade fever, chills, abd pain. She didn't think of this yesterday when she spoke with Lu. She does want to go ahead and get the abx called into [facility] in [facility] 10-20-2024 Note Noted urine culture report showing E coli MDRO from [facility]. Pt reports using BID Methamine after seeing Dr. Blanchard and states her urine is clear (no longer cloudy), denies urgency and mild burning at start of urination denying fever chills or other associated UTI symptoms. States having hematuria with past UTIs. Reviewed with Dr. Sujit Monterroso by phone the results of culture and pt report to coordinator and per this MD to FU with Dr. Sree Blanchard in urology and start cranberry tabs OTC. Pt notified and verbalized understanding but uncertain that RV with urology will be helpful. Agrees to resume the cranberry tablets. Pt states prior to renal transplant her field automobile adjuster prescribed Bactrim for her to prevent UTIs and she wishes that the E Coli was gone from her urine. Verbalized understanding of colonization. Have asked urology clinic [place] staff via [employer] to contact pt for FU with Dr. Blanchard. Will discuss with this MD plan for return visit. [facility] 10-20-2024 Note Faxed stat request t o [facility] for results of 10/14/[address] [facility] 10-12-2024 Note Patient called, stat es she is having urinary burning, urgency and cloudy urine. Denies fever. Has a history of frequent UTI's and sees Dr. Blanchard, follow up appt is scheduled next month. Questions if she can get urine culture order sent to local lab at [facility] [facility]. . Per Dr. Monterroso, order sent. Reviewed tac level of 3.7, no changes at this time due to possible infection. Patient verbalized understanding. [facility] 09-14-2024 History of Present illness Narrative Images from the original note were not included. Blake Hinojosa, DO Obstetrics and Gynecology Mandeep Puri 1975 09/14/24 [id number] Ultrasound Follow Up Exam Chief Complaint Patient [...] LOW TRANSVERSE 07/23/2003 COLONOSCOPY 04/01/2022 Dx Diverticulosis RI BREAST REDUCTION 1996 TOTAL ABDOMINAL HYSTERECTOMY 03/19/2017 [...] 125 0.0 - 38.1 12.9 Entered by aCrol Camacho MA acting as scribe for Dr. Blake Hinojosa. Signature Carol Camacho MA Date 09/14/24 . Time 8:46 AM . The documentation recorded by the scribe accurately reflects the service(s) I personally performed and the decisions I made. Signature Lona Hinojosa D.O. Date 09/14/24 Time 5:00PM. documented in this encounter [facility] 08-06-2024 Note Patient tac level is 8.2, per Dr Sharla anderson, patient notified to decrease envarsus by 0.5 mg, will now be on 1.5 mg daily of envarsus, repeat level in one week. Patient verbalized understanding. [facility] 08-02-2024 History of Present illness Narrative Images from the original note were not included. Blake D Micaela, DO Obstetrics and Gynecology Mandeep Rhianna Khushi 1975 08/02/24 [id number] Yearly Wellness Exam Chief Complaint Patient presents [...] LOW TRANSVERSE 07/23/2003 COLONOSCOPY 04/01/2022 Dx Diverticulosis RI BREAST REDUCTION 1996 TOTAL ABDOMINAL HYSTERECTOMY 03/19/2017 [...] 08/02/24 Time 5:00PM. documented in this encounter [facility] 07-27-2024 History of Present illness Narrative Images [...] Active Problem List Diagnosis Benign essential hypertension ([facility]) Fibromyalgia MICHELLE (iron deficiency anemia) RADHA (obstructive sleep apnea) Renal transplant recipient ([facility]) Type 2 diabetes mellitus with diabetic chronic kidney disease ([facility]) Mixed anxiety and depressive disorder Dyslipidemia ([facility]) Gastroesophageal reflux disease Immunosuppressive management encounter following kidney transplant ([facility]) ADPKD (autosomal dominant polycystic kidney disease) Polyarthritis of multiple sites Anxiety Anemia of renal disease NSTEMI (non-ST elevated myocardial infarction) ([facility]) Polycystic kidney disease Secondary hyperparathyroidism ([facility]) Tonsillolith Stage 4 chronic kidney disease ([facility]) Chronic kidney disease, stage 5 ([facility]) Gout Review of Systems Constitutional: Positive for [...] Lucero Hudson NP documented in this encounter [facility] 07-09-2024 Note Positive urine cultu re. Per Dr. Blanchard, Macrobid 100 mg BID x 7 days ordered to patient's pharmacy. Pt was informed and verbalized understanding. [facility] 07-07-2024 Note Chief complaint: Rec urrent [...] cyst which she will discuss with her field automobile adjuster. At this point we will recommend continuing the methenamine prophylaxis. She does not prove effective can consider lowering the Myfortic. Sree Blanchard MD [facility] 06-15-2024 Note Patient notified of Augmentin Rx sent in to pharmacy for positive urine culture by NORMA Jasso per [employer] secure chat. Patient verbalizes understanding. [facility] 06-10-2024 Note Patient requests uri ne culture order to be refaxed to [facility]. as the hospital is telling her not received. Order promptly refaxed with confirmation received. Pt advised to FU with coordinator and alternative fax number if hospital reports again no receipt of the order. She acknowledged understanding [facility] 06-09-2024 Note Tac level 3.0, Mg 1. [address] Monterroso. Per phone order increase Envarsus by 0.5mg [...] Patient requests order to be faxed to [facility]. [facility] 05-19-2024 Note Chief complaint: Rec urrent [...] back after the CT. Sree Blanchard MD [facility] 04-29-2024 Note Patient urine cultur e/susceptible medications reviewed over the phone with Dr. Monterroso. New orders for Amoxicillin 500 mg for 7 days. Patient recently had renal ultra sound done. New referral for urology. Coordinator spoke with urology, patient scheduled for May 19 at 3:30. Standing order placed for urinalysis for patient to obtain around May 14, IF continuing to have symptoms of UTI, this way it is fresh results prior to urology appointment. Patient verbalized understanding. [facility] 04-27-2024 Note 04/27/24 Chief Complaint Patient [...] Txp Referring: Yaneth Muñoz Preferred Pharmacy: [facility] - [place], [place] - [address] [facility] [place] [address] [facility] [place] [address] [facility] [address] [id number] [place], [place] - [address] [facility] AT CORNER OF [address] [address] [facility] [address] [address] Subjective Visit Vitals BP 121/60 (BP Location: [...] Dose Status amLODIPine (Norvasc) 10 mg tablet [id number] Yes Take 1 tablet (10 mg) by mouth in the morning. Aguila Parrish MD Taking Active bumetanide (Bumex) 2 mg tablet [id number] Take 1 tablet (2 mg) by mouth in the morning. Patient not taking: Reported on 11/08/2022 Aguila Parrish MD 10/25/22 2359 docusate sodium (Colace) 100 mg capsule [id number] Take 1 capsule (100 mg) by mouth in the morning and at bedtime. Patient not taking: Reported on 09/01/2023 Paty Ansari, NORMA Active DULoxetine (Cymbalta) [address] capsule [id number] Yes Take 1 capsule every day by oral route. Historical ProviderMD Taking Active Envarsus XR 1 mg tablet ER [id number] Yes TAKE 3 TABLETS BY MOUTH ONCE DAILY IN THE MORNING. TAKE ALONG WITH 0.75 MG TABLETS DIRECTED FOR TOTAL DOSE UP TO 4.5 MG PER DAY. Patient taking differently: Take 2 mg by mouth in the morning. Aguila Parrish MD Taking Flag for Review famotidine (Pepcid) 20 mg tablet [id number] Yes Take 1 tablet (20 mg) by mouth in the morning. Patient taking differently: Take 20 mg by mouth if needed. Aguila Parrish MD Taking Active febuxostat (Uloric) 40 mg tablet [id number] Take 0.5 tablets every day by oral route. Historical ProviderMD Active ferrous sulfate 325 (65 Fe) MG tablet [id number] Yes Take 65 mg by mouth every other day. Historical ProviderMD Taking Active fish oil ([place]-3) 60-90-500 mg capsule [id number] Take 2 capsules (1,000 mg) by mouth in the morning and at bedtime. Patient not taking: Reported on 12/23/2023 Sujit Monterroso MD Active Levemir FlexPen 100 unit/mL (3 mL) pen [id number] INJECT 12 UNITS SUBCUTANEOUS IN AM 30 DAYS Historical ProviderMD Active magnesium oxide (Mag-Ox) 400 mg (241.3 mg magnesium) tablet [id number] Yes TAKE 2 TABLETS BY MOUTH IN THE MORNING AND 2 TABLETS AT BEDTIME Sree Blanchard MD Taking Active mycophenolate (Myfortic) 180 mg EC tablet [id number] Yes Take 4 tablets (720 mg) by mouth in the morning and at bedtime. Aguila Parrish MD Taking Active oxyCODONE-acetaminophen (Percocet) 5-325 mg tablet [id number] Take 1 tablet by mouth every 6 (six) hours if needed for severe pain (8-10 pain score) for up to 20 doses. Patient not taking: Reported on 09/01/2023 Paty Ansrai NP Active potassium chloride CR (Klor-Con M20) 20 mEq ER tablet [id number] Yes Take 1 tablet (20 mEq) by mouth in the morning. Do not crush or chew. Andrea Elizondo MD Taking Active pravastatin (Pravachol) 40 mg tablet [id number] Yes Take 1 tablet (40 mg) by mouth at bedtime. Patient taking differently: Take 40 mg by mouth at bedtime. 40 mg 4 times a week. Fri Kevin Raymond MD Taking Active semaglutide (Ozempic) 2 mg/dose (8 mg/3 mL) pen injector [id number] Yes Inject 2 mg under the skin every 7 (seven) days. Historical Provider, Taking Active tacrolimus ER (Envarsus XR) 0.75 mg tablet ER [id number] Yes Take 2 tablets (1.5 mg) by mouth in the morning. Script total 4.5 mg daily Priyanka Villanueva MD Taking Active tacrolimus ER (Envarsus XR) 1 mg tablet ER [id number] Yes Take 3 tablets (3 mg) by mouth in the morning. Script total 4.5 mg daily Priyanka Villanueva MD Taking Active Immunization History Administered Date(s) Administered Ainsley Sars-Cov-2 Vaccination 10/13/2021 Patient Active Problem List Diagnosis Anxiety COVID-19 Depressive disorder Gastroesophageal reflux disease Gout Primary hyper (more content not included)... [facility] 04-23-2024 Note Patient TAC level, 1 [...] making change in dose. Patient verbalized understanding. [facility] 04-21-2024 Note Patient called, stat es [...] urine culture to be done, voiced understanding. [facility] 03-25-2024 Note Patient called, stat es PCP stopped Bactrim and started Keflex for E-coli in urine. On 500 mg tid x 7 days. Advised to hydrate well and get labs, repeat urine culture once completed. Voiced understanding. [facility] 03-16-2024 Note Patient called stati adair she is currently being treated for a UTI with bactrim BID for [address] [facility] 02-25-2024 Note Received a call from the patient regarding the non-compliant lab letter. Explained to the patient that we had gotten some labs on her but not a CMP or BMP. Patient stated that she has always gotten her labs drawn at [facility]. She will be getting labs drawn tomorrow and she will make sure that the draw the correct labs and have the results sent to us. [facility] 12-23-2023 Note 12/23/23 Chief Complaint Patient presents with Kidney Follow-up Pt has questions about her lab work. PCP: Ming Espinoza MD Txp Referring: Yaneth Muñoz [facility] Pharmacy: [facility] - [place], [place] - [address] [place] [address] [place] [address] [facility] [address] [id number] - [place] - [address] [facility] [address] [address] [facility] [address] [place] [address] [facility] [place] [address] Subjective Visit Vitals BP 116/73 (BP Location: [...] Review Audit Reviewed by Trupti Sanchez MA (Iuss Acoustic Analyst) on 12/23/23 at 1430 Medication Order Taking? Sig Documenting Provider Last Dose Status amLODIPine (Norvasc) 10 mg tablet [id number] Take 1 tablet (10 mg) by mouth in the morning. Aguila Parrish MD 10/24/23 2359 bumetanide (Bumex) 2 mg tablet [id number] Take 1 tablet (2 mg) by mouth in the morning. Patient not taking: Reported on 11/08/2022 Aguila Parrish MD 10/25/22 2359 docusate sodium (Colace) 100 mg capsule [id number] Take 1 capsule (100 mg) by mouth in the morning and at bedtime. Patient not taking: Reported on 09/01/2023 Paty Ansari, NORMA Active DULoxetine (Cymbalta) [address] capsule [id number] Yes Take 1 capsule every day by oral route. Historical ProviderMD Taking Active Envarsus XR 1 mg tablet ER [id number] Yes TAKE 3 TABLETS BY MOUTH ONCE DAILY IN THE MORNING. TAKE ALONG WITH 0.75 MG TABLETS DIRECTED FOR TOTAL DOSE UP TO 4.5 MG PER DAY. Patient taking differently: Take 2 mg by mouth in the morning. Aguila Parrish MD Taking Active famotidine (Pepcid) 20 mg tablet [id number] Yes Take 1 tablet (20 mg) by mouth in the morning. Patient taking differently: Take 20 mg by mouth if needed. Aguila Parrish MD Taking Active febuxostat (Uloric) 40 mg tablet [id number] Take 0.5 tablets every day by oral route. Historical ProviderMD Active ferrous sulfate 325 (65 Fe) MG tablet [id number] No Take 65 mg by mouth every other day. Historical ProviderMD Not Taking Active fish oil (Henrico-3) 60-90-500 mg capsule [id number] No Take 2 capsules (1,000 mg) by mouth in the morning and at bedtime. Patient not taking: Reported on 12/23/2023 Sujit Monterroso MD Not Taking Active Levemir FlexPen 100 unit/mL (3 mL) pen [id number] No INJECT 12 UNITS SUBCUTANEOUS IN AM 30 DAYS Historical Provider, Not Taking Flag for Review magnesium oxide (Mag-Ox) 400 mg (241.3 mg magnesium) tablet [id number] Yes TAKE 2 TABLETS BY MOUTH IN THE MORNING AND 2 TABLETS AT BEDTIME Sree Blanchard MD Taking Active mycophenolate (Myfortic) 180 mg EC tablet [id number] Yes Take 4 tablets (720 mg) by mouth in the morning and at bedtime. Aguila Parrish MD Taking Active oxyCODONE-acetaminophen (Percocet) 5-325 mg tablet [id number] Take 1 tablet by mouth every 6 (six) hours if needed for severe pain (8-10 pain score) for up to 20 doses. Patient not taking: Reported on 09/01/2023 Paty Ansari NP Active potassium chloride CR (Klor-Con M20) 20 mEq ER tablet [id number] Yes Take 1 tablet (20 mEq) by mouth in the morning. Do not crush or chew. Andrea Elizondo MD Taking Active pravastatin (Pravachol) 40 mg tablet [id number] Yes Take 1 tablet (40 mg) by [...] Smokeless tobacco: Cara (more content not included)... [facility] 07-30-2022 Evaluation note Encounter Date Diagnosis [...] She has gout and follows with a farmworker rice. She takes Urolic and denies any recent gout flare Jul, Metabolic acidemia, unspecified (ICD-10 - P19.9) She has metabolic acidosis due to the advanced CKD. Continue oral Sodium Bicarbonate [facility] Other 09-28-2022 Evaluation note* Encounter Date Diagnosis [...] disease, unspecified CKD stage (ICD-10 - N18.9) [facility] Encounter Date Diagnosis Assessment Notes Treatment Notes Treatment Clinical Notes May, Pre-op testing (ICD-10 - Z01.818) [place] [facility] Other 08-25-2022 Evaluation note* Encounter Date Diagnosis [...] will schedule this in the near future. [facility] Other 07-28-2022 Evaluation note* Encounter Date Diagnosis [...] explained to her the potential need of LEAD APPLIER in future. I discussed with her different options of LEAD APPLIER including PD, HTN renal transplant. I provide information about her renal transplant centers. She is interested in home dialysis and would like to prefer PD. She agrees to have AV fistula just in case if the PD does not work for her. I havea referred her again to vascular surgery for AV fistula. 28 Jn, 2022 Otoniel hy kid w cr kid I-IV [...] stephens s gout and follows with a farmworker rice. She takes Urolic and denies any recent gout flare [facility] Other 07-26-2022 Evaluation note* Encounter Date Diagnosis [...] care provider if no improvement of symptoms. [facility] Other 05-24-2022 Evaluation note* Encounter Date Diagnosis Assessment Notes Treatment Notes Treatment Clinical Notes February, Screening for colon cancer (ICD-10 - Z12.11) [facility] Other 03-03-2022 Evaluation note* Encounter Date Diagnosis [...] explained to her the potential need of LEAD APPLIER in future. I discussed with her different options of LEAD APPLIER including PD, HTN renal transplant. I provide information about her renal transplant centers. She is interested in home dialysis and would like to prefer PD. She agrees to have AV fistula just in case if the PD does not work for her. I have advised her to schedule an appointment with vascular surgery for AV fistula. Dec, Otoniel welch kid w cr kid I-IV (ICD-10 - [...] She has gout and follows with a farmworker rice. She takes Urolic and denies any recent gout flare [facility] Other 06-25-2021 NotePatient Outreach (NEPHMN) MANDEEP PURI ([id number]) 1975 F Date Time Provider Department 03/30/21 PERRI BARRETT During your visit today, we recorded the following information about you: Allergies As of Date: 03/30/2021 Noted Allergy Reaction ALLOPURINOL 08/02/2019 4 - Hives Date Reviewed: 03/30/2021 Reviewed by: Perri Barrett MD - Fully Assessed Visit Diagnosis:Screening for genitourinary condition [Z13.89] Order(s):URINALYSIS, DIPSTICK ONLY [SQUA] Order #: [id number]. #:[id number] Prescriptions as of 03/30/2021 Sig: DULOXETINE 60 [...] dominant polycystic kidney dis*03/30/2021 Encounter Status:Closed by [employer], PRODUSER on 04/02/21[facility] 03-30-2021 NoteHNO ID: [id number] Author: Perri Barrett MD Service: ? Author Type: Physician Type: Progress Notes Filed: 03/30/2021 10:25 AM Note Text: Mrs. 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 sirolimus (rapamycin) [facility] History general Narrative - Reported * Type Description Date Medical History HTN (hypertension) Medical History Anxiety Medical History polycystic kidneys Medical History COVID 05-17-2020 Surgical History C section Surgical History BREAST REDUCTION Hospitalization History child Hospitalization History KIDNEY INFECTION 07/2019 Hospitalization History COVID AND DEHYDRATION [facility] Other 08-12-2020 History general Narrative - Reported* Type Description Date Medical History HTN (hypertension) Medical History Anxiety Medical History polycystic kidneys Medical History COVID 05-17-2020 Medical History end stage renal disease Surgical History C section Surgical History BREAST REDUCTION Surgical History colonoscopy 04/01/2022 Surgical History wisdom teeth 03/24/2022 Hospitalization History child Hospitalization History KIDNEY INFECTION 07/2019 Hospitalization History COVID AND DEHYDRATION [facility] Other 08-12-2020 History general Narrative - Reported* [...] INFECTION 07/2019 Hospitalization History COVID AND DEHYDRATION [facility] Other 08-12-2020 History general Narrative - Reported* [...] INFECTION 07/2019 Hospitalization History COVID AND DEHYDRATION [facility] Other evaluation noteNo assessment information available [facility] Work Phone: evaluation noteNo InformationNort [facility] Other evalurpcli note* Diagnosis Onset Date Resolution Status Dysuria acute UTI (urinary tract infection) acute [facility] Work Phone: evaluation note* Diagnosis [...] [facility] Healthcare[facility]* Diagnosis Benign essential hypertension ([facility])- Primary Essential hypertension, benign Renal transplant recipient ([facility]) Immunosuppressive management encounter following kidney transplant ([facility]) Encounter for long-term (current) use of other medications Anemia of renal disease Anemia in chronic kidney disease Iron deficiency anemia, unspecified iron deficiency anemia type Type 2 diabetes mellitus with stage 3a chronic kidney disease, without long-term current use of insulin (HCC) ([facility]) Dyslipidemia (CMS/HCC) Other and unspecified hyperlipidemia Fibromyalgia [...] FoundDocuments on File Type Date Recorded Patient Youth Corrections Officer Expl anation Advance Directives and Living Will Power of Overweaver Advance Directive Response Recorded Date/ Time Advance [...] N83.202 ELEVATED ESR August 02, 2024 8:39am z12.August 25, 2024 3:05pm Chief Complaint Admit Date N83.202 ELEVATED ESR August 02, 2024 8:39am z12.31 August 25, 2024 3:05pm Unknown October 14, 2024 7: 35am Additional Source Comments Reason for Visit (unrecogniz [...] DATE CREATED AUTHOR AUTHOR'S ORGANIZ ATION 04/28/2020 [facility] DATE CREATED AUTHOR AUTHOR'S ORGANIZ ATION 09/12/2020 [facility] DATE CREATED AUTHOR AUTHOR'S ORGANIZ ATION 11/07/2021 [facility] DATE CREATED AUTHOR AUTHOR'S ORGANIZ ATION 02/27/[address] [facility] DATE CREATED AUTHOR AUTHOR'S ORGANIZ ATION 08/04/2022 [facility] DATE CREATED AUTHOR AUTHOR'S ORGANIZ ATION 10/02/2024 [facility] EPIC DATE CREATED AUTHOR AUTHOR'S ORGANIZ ATION 10/19/2024 [facility] DATE CREATED AUTHOR AUTHOR'S ORGANIZ ATION 10/26/2024 [facility] Care Teams (unrecognized sec tion and [...] March 15, 2024 End: March 15, 2024 Manager Instrumentation Relationship Specialty Start Date End Date Ming Espinoza DO [address] [place] [address] PCP - Medical [place] [employer] 10/06/21 10/05/99 Ming Espinoza DO [address] [place] [address] PCP - General Internal Medicine 05/02/23 Manager Instrumentation Relationship Specialty Start Date End Date Ming Espinoza DO [address] [place] [address] PCP - Medical [employer] [employer] 10/06/21 10/05/99 Ming Espinoza DO [address] [place] [address] PCP - General Internal Medicine 05/02/23 Manager Instrumentation Relationship Specialty Start Date End Date Ming Espinoza DO [address] [place] [address] PCP - Medical [employer] [employer] 10/06/21 10/05/99 Ming Espinoza DO [address] [place] [address] PCP - General Internal Medicine 05/02/23 Manager Instrumentation Relationship Specialty Start Date End Date Ming Espinoza DO [address] [place] [address] PCP - Medical [employer] 10/06/21 10/05/99 Ming Espinoza DO [address] [place] [address] PCP - General Internal Medicine 05/02/23 Team [...] August 25, 2024 End: August 25, 2024 Manager Instrumentation Relationship Specialty Start Date End Date Ming Espinoza DO [address] [facility] [address] [place] [address] PCP - Medical [place] [employer] 10/06/21 10/05/99 Ming Espinoza DO [address] [facility] [address] [place] [address] PCP - General Internal Medicine 05/02/23 Manager Instrumentation Relationship Specialty Start Date End Date Ming Espinoza DO [address] [place] [address] PCP - Medical [employer] [employer] 10/06/21 10/05/99 Ming Espinoza DO [address] [place] [address] PCP - General Internal Medicine 05/02/23 Manager Instrumentation Relationship Specialty Start Date End Date Ming Espinoza DO [address] [place] [address] PCP - Medical [employer] 10/06/21 10/05/99 Ming Espinoza DO [address] [place] [address] PCP - General Internal Medicine 05/02/23 Manager Instrumentation Relationship Specialty Start Date End Date Ming Espinoza DO [address] [place] [address] PCP - Medical [place] [employer] 10/06/21 10/05/99 Ming Espinoza DO [address] [place] [address] PCP - General Internal Medicine 05/02/23 Manager Instrumentation Relationship Specialty Start Date End Date Ming Espinoza DO [address] [place] [address] PCP - Medical [employer] 10/06/21 10/05/99 Ming Espinoza DO [address] [place] [address] PCP - General Internal Medicine 05/02/23 Team Status: Inactive Member Role Status Dates Ming Espinoza DO Primary Care Provider Active Start: October 14, 2024 End: October 14, 2024 Sujit Monterroso MD Attending Provider Active S tart: October 14, 2024 End: October 14, 2024 Goals (unrecognized section and content) Goals [...] BE BASED ON THE PRIMARY CLINICAL RECORDS. [facility]. provides no warranty or guarantee of the accuracy or completeness of [phone] in [phone] [id number]
[2024-10-30 09:12] LABS: Basophils Absolute Auto 0.1 10^3/uL (0.0-0.1); Basophils Percent Auto 0.8 % (0.2-2.0); Eosinophils Absolute Auto 0.3 10^3/uL (0.0-0.7); Eosinophils Percent Auto 4.7 % (0.9-7.0); Hemoglobin 12.6 g/dL (12.0-16.0); Immature Granulocytes Abs Auto 0.04 10^3/uL (0.00-0.03); Immature Granulocytes Pct Auto 0.6 % (0.0-0.5); Lymphocytes Absolute Auto 1.4 10^3/uL (1.2-3.8); Lymphocytes Percent Auto 21.4 % (20.5-60.0); Mean Corpuscular HGB Conc 32.3 g/dL (29.9-35.2); Mean Corpuscular Hemoglobin 27.6 pg (26.7-34.0); Mean Corpuscular Volume 85.5 fL (81.0-99.0); Mean Platelet Volume 8.3 fL (9.5-13.5); Monocytes Absolute Auto 0.3 10^3/uL (0.3-0.8); Monocytes Percent Auto 5.3 % (1.7-12.0); Neutrophils Absolute Auto 4.3 10^3/uL (1.4-6.5); Neutrophils Percent Auto 67.2 % (43.0-75.0); Platelet Count 346 10^3/uL (150-450); Red Blood Count 4.56 10^6/uL (4.20-5.40); Red Cell Distribution Width 15.1 % (11.0-15.0); White Blood Count 6.5 10^3/uL (4.0-11.0)
[2024-10-30 10:36] LABS: Alanine Aminotransferase 23 U/L (14-59); Albumin Globulin Ratio 0.9; Albumin Level 3.8 g/dL (3.4-5.0); Alkaline Phosphatase 98 U/L (46-116); Anion Gap 15.4; Aspartate Amino Transferase 15 U/L (15-37); BUN Creatinine Ratio 10.1; Bilirubin Direct 0.1 mg/dL (0.0-0.2); Bilirubin Total 0.4 mg/dL (0.2-1.0); Calcium 9.4 mg/dL (8.5-10.1); Carbon Dioxide 24.1 mmol/L (21.0-32.0); Chloride 104 mmol/L (98-107); Estimated GFR (African America 49 (>=60 mL/min/1.73m^2); Estimated GFR (Non-African Ame 41 (>=60 mL/min/1.73m^2); Globulin 4.3 g/dL; Glucose 126 mg/dL (74-106); Magnesium 1.8 mg/dL (1.8-2.4); Phosphorus 3.2 mg/dL (2.6-4.7); Potassium 3.5 mmol/L (3.5-5.1); Sodium 140 mmol/L (136-145); Total Protein 8.1 g/dL (6.4-8.2); Uric Acid 4.1 mg/dL (2.6-6.0)
[2024-11-03 07:14] LABS: Tacrolimus (FK506), Blood 6.6 ng/mL (2.0-20.0)
== END 2024-10-30 08:43 | disposition home or self-care (01) ==
PROVIDERS: PCP Internal Medicine
DX: R73.01 Impaired fasting glucose (principal); Z94.0 Kidney transplant status; E78.5 Hyperlipidemia, unspecified; R60.9 Edema, unspecified
CPT/HCPCS: 36415; 80053; 80197; 82248; 83735; 84100; 84550; 85025

== ENCOUNTER 2024-11-04 20:43 | Emergency (ER) | payer OTHER, SELFPAY ==
[2024-11-04 20:47] VITALS: BP 135/70; PULSE 95; TEMP 36.8; O2SAT 98; BMI 34.2
--- OUTSIDE RECORDS SUMMARY | 2024-11-04 20:49 | XMS_ITS | CCD ---
Author Organization [facility] Care Team Providers Care Brilliandeer Looper Name Role Phone Ming Espinoza Primary Care Provider VIDAL MADRIGAL Attending Unavailable MING ESPINOZA Primary Care Unavailable Toni, Yaneth Unavailable Shabbir Jones Unavailable Dipika Stinson Unavailable Jesus Parham Unavailable DO Ming Espinoza Primary Care Provider MD Shabbir Jones Attending Provider MD Yaneth Muñoz Attending Provider [phone] MD Jesus Parham Attending Provider Estefania [...] Unavailable TONI, YANETH Admitting Unavailable ALEXIS, DR ACOSAT Primary Care Unavailable TONI, YANETH Attending Unavailable TONI, YANETH Consulting Unavailable DO Alexis Ming Primary Care Provider [phone] MD Perri Ceja Attending Provider CECILIA Edwards Attending Provider Ming Espinoza DO Unavailable Ming Espinoza DO Primary Care Provider DO Ming Espinoza Primary Care Provider MD Jesus Ayala Attending Provider [phone] DO Blake Hinojosa Referring Provider [phone] Ming Espinoza DO Primary Care Provider Jesus Ayala MD Attending Provider [phone] Blake Hinojosa DO Referring Provider Blake Hinojosa [...] Attending Unavailable Sujit Monterroso MD Attending Provider Perri Ceja Attending Unavailable Ming Espinoza [facility] Unavailable Perri Ceja Admitting Unavailable Jerry, Andreia Solano Admitting Unavailable Andreia Edwards Attending Unavailable Alexis Ming [facility] Unavailable Jesus Ayala Admitting Unavailable Jesus Ayala Attending Unavailable Blake Hinojosa Referring Unavailable Ming Espinoza [facility] Unavailable Dolores, Sujit Admitting Unavailable Dolores, Sujit Attending Unavailable Ming Espinoza [facility] Unavailable Blake Hinojosa Admitting Unavailable Blake Hinojosa Attending Unavailable SREE BLANCHARD Referring Unavailable MUNIRA PHAN Attending Unavailable SREE BLANCHARD Attending Unavailable LO, SREE Attending Unavailable DOLORES, SUJIT Referring Unavailable CRISENBERSalome, MUNIRA Attending Unavailable Allergies Allergy Classification Reported Allergen(s) Allergy Type Date of Onset Reaction(s) Facility (20 sources) Allopurinol; Translations: [ALLOPURINOL] Drug Allergy 9 hives, Rash [place], [place] (20 sources) venlafaxine; Translations: [venlafaxine] Drug Allergy 2 Rash, Rash, hives [facility] (16 sources) venlafaxine; Translations: [VENLAFAXINE HCL] Drug Allergy 1 [facility] (1 source) Allopurinol Drug Allergy 4 [facility] Repository Medications Current Medications [...] acid 7540 MG / polyethylene glycol 3350 51168 MG / potassium chloride 1200 MG / sodium ascorbate 39354 MG / sodium chloride 3200 MG Powder for Oral Solution) / 1 (polyethylene glycol 3350 136887 MG / potassium chloride 1000 MG / sodium chloride 2000 MG / sodium sulfate 9000 MG Powder for Oral Solution) } Pack [Plenvu] (1 source) Osmotic Laxative, Vitamin C Start: 02-26-2022 Plenvu 140 GM dose 1 pouch at 4pm, dose 2 pouch A & B at 11pm Orally twice a day for 1 days BIN:[id number] PCN: [id number] GROUP:[id number] ID:[id number] February, Active cephalexin 500 mg oral capsule [...] Muscle Pain August 01, 2019 11:00pm calcitriol 0.99086 mg oral capsule (9 sources) Vitamin D3 [...] Ergocalciferol (Vitamin D2) 50,000 unit capsule Discontinued 98971 UNIT PO every month January 19, 2019 [...] Translations: [Chronic renal failure, stage 4 (severe) ([facility])] Chronic Acute and unspecified renal failure (9 [...] aftercare (17 sources) Transplant follow-up; Translations: [Other care home (current) drug therapy] Onset: 10-23-2022 06-10-2023 Episodic [...] Range Facility Orders Onlyon 10-21-2024 Orders Only [id number] Antonio Puri sarath 1975 F Date Provider Department Center 10/21/2024 1971-[facility] TXP None Family History Problem Relation Age of Onset Fibromyalgia Mother Heart disease Father Hypertension Sister Polycystic kidney disease Sister Hypertension Brother Polycystic kidney disease Brother Family Status - Relation Status Age at Mother Father Sister Brother Normal [facility] ALL URINALYSISon 10-14-2024 BILIRUBIN URINE Negative NEGATIVE [facility] BLOOD URINE TRACE-I NEGATIVE [facility] Clarity (U) CLEAR CLEAR [facility] Color (U) LT. YELLOW YELLOW [facility] GLUCOSE URINE UA Negative NEGATIVE mg/dL [facility] Interpretation and review of laboratory results Abnormal [facility] Ketones Ql (U) Negative NEGATIVE mg/dL [facility] Leukocyte esterase Test strip Ql (U) LARGE Abnormal NEGATIVE [facility] NITRITE URINE Positive Abnormal NEGATIVE [facility] pH (U) 7.5 [pH] 5.0 - 9.0 [facility] PROTEIN URINE Negative NEG/TRACE mg/dL [facility] SPECIFIC GRAVITY URINE 1.015 1.005 - 1.025 [facility] UROBILINOGEN URINE 0.2 EU/dL 0.2 - 1.0 EU/dL [facility] Urine Cultureon 10-14-2024 Bacteria identified Cx Nom (U) ORGANISM: Escherichia coli (MDRO) (O:ESCCOLMDRO) [place] Count >100,000 Aerobic CODI Charge (NMIC56) - [...] RESISTANT TO ALL B-LACTAM DRUGS. PERFORMED BY: [place] [address] PATHOLOGIST [employer] LOCOMOT[employer] DOM MARIEE M.D. Normal [facility] Comment on above: Performed By: #### C UU #### [address] ALL MAGNESIUMon 10-02-2024 Magnesium [Mass/Vol] 1.8 mg/dL 1.8 - 2 .4 mg/dL [facility] ALL PHOSPHOROUSon 10-02-2024 Phosphate [Mass/Vol] 3.9 mg/dL 2.6 - 4 .7 mg/dL [facility] ALL URIC ACIDon 10-02-2024 Urate [Mass/Vol] 4.2 mg/dL 2.6 - 6.0 mg/dL [facility] CCF CMP (CMP) (FOR REMOTE FH C USE)on 10-02-2024 Albumin [Mass/Vol] 3.3 g/dL Low 3.4 - 5.0 g/dL [facility] ALBUMIN GLOBULIN RATIO 0.8 NO [facility] ALP [Catalytic activity/Vol] 84 U/L 46 - 116 U/L [facility] ALT [Catalytic activity/Vol] 13 U/L Low 14 - 59 U/L [facility] Anion gap [Moles/Vol] 14.6 mmol/L NO [facility] AST [Catalytic activity/Vol] 11 U/L Low 15 - 37 U/L [facility] Bilirubin [Mass/Vol] 0.3 mg/dL 0.2 - 1 .0 mg/dL [facility] Calcium [Mass/Vol] 9.3 mg/dL 8.5 - 10. 1 mg/dL [facility] Chloride [Moles/Vol] 105 mmol/L 98 - 10 7 mmol/L [facility] CO2 [Moles/Vol] 25 mmol/L 21.0 - 32.0 mmol/L [facility] Creatinine [Mass/Vol] 1.37 mg/dL High 0.55 - 1.02 mg/dL [facility] GFR/1.73 sq M.predicted CKD-EPI (S/P/Bld) [Vol rate/Area] 50 Low >=60 mL/min/1.73m 2 [facility] Globulin (S) [Mass/Vol] 4.2 g/dL [facility] Glucose [Mass/Vol] 102 mg/dL 74 - 106 mg/dL [facility] Interpretation and review of laboratory results Abnormal [facility] Potassium [Moles/Vol] 3.6 mmol/L 3.5 - 5.1 mmol/L [facility] Protein [Mass/Vol] 7.5 g/dL 6.4 - 8.2 g/dL [facility] Sodium [Moles/Vol] 141 mmol/L 136 - 145 mmol/L [facility] TBH EGFR-NON AF SCOTTISH 41 Low >=60 mL/min/1.73m 2 [facility] Urea nitrogen [Mass/Vol] 17 mg/dL 7.0 - 18.0 mg/dL [facility] Urea nitrogen/Creatinine [Mass ratio] 12.4 mg/mg [facility] METRO BILIRUBIN, DIRECTon Bilirubin.indirect [Mass/Vol] 0.1 mg/dL 0.0 - 0.2 mg/dL [facility] No Panel Informationon 10-02 [facility] ALL CBC WITH AUTO DIFFon BASOPHILS ABSOLUTE AUTO 0 [facility] Basophils/100 WBC (Bld) 0.3 % 0.2 - 2.0 % [facility] Eosinophils/100 WBC (Bld) 2.8 % 0.9 - 7.0 % [facility] Erythrocyte distribution width (RBC) [Ratio] 14.5 % 11.0 - 15.0 % [facility] Hematocrit (Bld) [Volume fraction] 34.4 % Low 36.0 - 48.0 % [facility] Hemoglobin (Bld) [Mass/Vol] 10.9 g/dL Low 12.0 - 16.0 g/dL [facility] IMMATURE GRANULOCYTES ABS AUTO 0.03 [facility] Immature granulocytes/100 WBC (Bld) 0.4 % 0.0 - 0.5 % [facility] Interpretation and review of laboratory results Abnormal [facility] LYMPHOCYTES ABSOLUTE AUTO 1.2 [facility] Lymphocytes/100 WBC (Bld) 15.4 % Low 20.5 - 60.0 % [facility] MCH (RBC) [Entitic mass] 27.5 pg 26.7 - 34.0 pg [facility] MCHC (RBC) [Mass/Vol] 31.7 g/dL 29.9 - 35.2 g/dL [facility] MCV (RBC) [Entitic vol] 86.9 fL 81.0 - 99.0 fL [facility] MONOCYTES ABSOLUTE AUTO 0.5 [facility] Monocytes/100 WBC (Bld) 6.2 % 1.7 - 12.0 % [facility] NEUTROPHILS ABSOLUTE AUTO 5.7 [facility] Neutrophils/100 WBC (Bld) 74.9 % 43.0 - 75.0 % [facility] Platelet mean volume (Bld) [Entitic vol] 8.5 fL Low 9.5 - 13.5 fL [facility] TBH EO # 0.2 [facility] PLT 337 [facility] RBC 3.96 Low [facility] WBC 7.6 [facility] ALL LIPID PROFILE (FASTING)o n 08-31-2024 CHOL HDL RATIO 3.6 [facility] Comment on above: 3.3 - 4.4 LOW RISK 4.4 - 7.1 AVERAGE RISK 7.1 - 11.0 MODERATE RISK >11.0 HIGH RISK Cholesterol [Mass/Vol] 175 mg/dL NINF - 200 mg/dL [facility] Cholesterol in HDL [Mass/Vol] 49 mg/dL 40 - 60 mg/dL [facility] Comment on above: > or =60 mg/dl - LOW CARDIOVASCULAR RISK <40 mg/dl - HIGH CARDIOVASCULAR RISK Magnesium [Mass/Vol] 99.6 mg/dL [facility] Comment on above: <100 mg/dl OPTIMAL 100-129 mg/dl NEAR OR ABOVE OPTIMAL 130-159 mg/dl BORDERLINE HIGH 160-189 mg/dl HIGH >190 mg/dl VERY HIGH Magnesium [Mass/Vol] 26.4 mg/dL [facility] Triglyceride [Mass/Vol] 132 mg/dL NINF - 150 mg/dL [facility] ALL MAGNESIUMon 08-31-2024 Magnesium [Mass/Vol] 1.9 mg/dL 1.8 - 2 .4 mg/dL [facility] ALL PHOSPHOROUSon 08-31-2024 Phosphate [Mass/Vol] 3.7 mg/dL 2.6 - 4 .7 mg/dL [facility] ALL URIC ACIDon 08-31-2024 Urate [Mass/Vol] 4 mg/dL 2.6 - 6.0 mg/dL [facility] CCF CMP (CMP) (FOR REMOTE FH C USE)on 08-31-2024 Albumin [Mass/Vol] 3.4 g/dL 3.4 - 5.0 g/dL [facility] ALBUMIN GLOBULIN RATIO 0.8 NO [facility] ALP [Catalytic activity/Vol] 86 U/L 46 - 116 U/L [facility] ALT [Catalytic activity/Vol] 19 U/L 14 - 59 U/L [facility] Anion gap [Moles/Vol] 17.2 mmol/L NO [facility] AST [Catalytic activity/Vol] 11 U/L Low 15 - 37 U/L [facility] Bilirubin [Mass/Vol] 0.4 mg/dL 0.2 - 1 .0 mg/dL [facility] Calcium [Mass/Vol] 9.3 mg/dL 8.5 - 10. 1 mg/dL [facility] Chloride [Moles/Vol] 104 mmol/L 98 - 10 7 mmol/L [facility] CO2 [Moles/Vol] 24.6 mmol/L 21.0 - 32.0 mmol/L [facility] Creatinine [Mass/Vol] 1.34 mg/dL High 0.55 - 1.02 mg/dL [facility] GFR/1.73 sq M.predicted CKD-EPI (S/P/Bld) [Vol rate/Area] 51 Low >=60 mL/min/1.73m 2 [facility] Globulin (S) [Mass/Vol] 4.2 g/dL [facility] Glucose [Mass/Vol] 98 mg/dL 74 - 106 mg/dL [facility] Interpretation and review of laboratory results Abnormal [facility] Potassium [Moles/Vol] 3.8 mmol/L 3.5 - 5.1 mmol/L [facility] Protein [Mass/Vol] 7.6 g/dL 6.4 - 8.2 g/dL [facility] Sodium [Moles/Vol] 142 mmol/L 136 - 145 mmol/L [facility] TBH EGFR-NON AF SCOTTISH 42 Low >=60 mL/min/1.73m 2 [facility] Urea nitrogen [Mass/Vol] 16 mg/dL 7.0 - 18.0 mg/dL [facility] Urea nitrogen/Creatinine [Mass ratio] 11.9 mg/mg [facility] METRO BILIRUBIN, DIRECTon Bilirubin.indirect [Mass/Vol] 0.1 mg/dL 0.0 - 0.2 mg/dL [facility] MLR HEMOGLOBIN A1Con 024 Glucose [Mass/Vol] 103 mg/dL [facility] HbA1c (Bld) [Mass fraction] 5.2 % 4.5 - 6.2 % [facility] Comment on above: ADA RECOMMENDED LIMI T 4.0 - 6.0 ADA THERAPEUTIC TARGET < 7.0 ACTION SUGGESTED > 7.0 [facility] No [facility] BI w/CADo n 08-25-2024 MM screening mammo BI w/CAD [facility] [place] [address] Mammography Report Signed Patient: Mandeep Puri MR#: [id number] : 1975 Acct:[id number] Age/Sex: 48 / F ADM Date: 08/25/24 Loc: [place] Room: Type: [facility] Attending Dr: Blake Hinojosa DO Copies [...] Messina Jr., D.OSon08/25/2024 3:24 PM Dictation Location: [facility] Transcribed By: SALMA 08/25/24 1524 Dictated By: Evan Messina Jr, DO 08/25/24 1523 Signed By: 08/25/24 1524 Normal [facility] Mammography reportOrdered By : Evna Messina on 08-25-2024 Diagnostic imaging study [facility] [place] [address] Mammography Report Signed Patient: aMndeep Puri MR#: [id number] : 1975 Acct:[id number] Age/Sex: 48 / F ADM Date: 4 Loc: PA Room: Type: [facility] Attending Dr: Blake Hinojosa DO Copies [...] Messina Jr., DIgor08/25/2024 3:24 PM Dictation Location: [facility] Transcribed By: [facility] 08/25/24 152 Dictated By: Evan Messina Jr DO 08/25/24 152 Signed By: 08/25/24 152 [facility] [place] 125on 08-03-2024 CANCER ANTIGEN 125 12.9 0.0 - 38.1 [facility] Comment on above: [facility] El ectrochemiluminescence Immunoassay (ECLIA) Values obtained with different assay methods or kits cannot be used interchangeably. Results cannot be interpreted as absolute evidence of the presence or absence of malignant disease. Performed at: [facility] [id number] Band Manager: Gabriel Whitman PhD, Phone: [phone] [facility] 24 hour urine albumin/total protein ratio by electrophoresisOrdered By: Jesus Ayala on 08-02-2024 Albumin Elph (24H U) [Mass fraction] Albumin/Protein.total in 24 hour Urine by Electrophoresis . [facility] 24 hour urine gamma globulin /total protein ratio by electrophoresisOrdered By: Jesus Ayala on 08-02-2024 Gamma globulin Elph (24H U) [Mass fraction] Gamma globulin/Protein.total in 24 hour Urine by Electrophoresis . [facility] 24 hour urine protein monocl onal/total protein by electrophoresisOrdered By: Jesus Ayala on 08-02-2024 Protein.monoclonal Elph (24H U) [Mass fraction] Protein.monoclonal/Prote in.total in 24 hour Urine by Electrophoresis Not Observed [facility] Alanine aminotransferase [En zymatic activity/volume] in Serum or PlasmaOrdered By: Jesus Ayala on 08-02-2024 ALT [Catalytic activity/Vol] 11 U/L Normal 7-52 [facility] Comment on above: Performed By: #### U PE RAND, CAMILLA,URINE, ALDOLASE, SPE, CAMILLA SERUM #### [facility] , #### ADDONUAPLUS, T4F, ESR, CMP, CK, CBC, CRP, TSH3 #### [facility] [address] ALT [Catalytic activity/Vol] Alanine aminotransferase [Enzymatic activity/volume] in Serum or Plasma [facility] Albumin [Mass/volume] in Ser um or Plasma by Bromocresol green (BCG) dye binding methoOrdered By: Jesus Ayala on 08-02-2024 Albumin BCG dye [Mass/Vol] 4.3 g/dL 3.5-5.7 [facility] Albumin BCG dye [Mass/Vol] Albumin [Mass/volume] in Serum or Plasma by Bromocresol green (BCG) dye binding metho 3.5-5.7 [facility] Aldolaseon 08-02-2024 Aldolase 3.5 U/L Normal 3.3-10.3 [facility] Comment on above: Result Comment: Perf ormed at: - [facility] [address] [id number] Band Manager: Gabriel Whitman PhD, Phone: [phone] PERFORMED BY: [place] [address] PATHOLOGIST [employer] ANAHY MCKEE M.D. Performed By: #### U PE RAND, CAMILLA,URINE, ALDOLASE, SPE, CAMILLA SERUM ####[facility] ,#### ADDONUAPLUS, T4F, ESR, CMP, CK, CBC, CRP, TSH3 ####[facility] [place] [address] Alkaline phosphatase [Enzyma tic activity/volume] in Serum or PlasmaOrdered By: Jesus Ayala on 08-02-2024 ALP [Catalytic activity/Vol] 87 U/L Normal 34-104 [facility] Comment on above: Performed By: #### U PE RAND, CAMILLA,URINE, ALDOLASE, SPE, CAMILLA SERUM #### [facility] , #### ADDONUAPLUS, T4F, ESR, CMP, CK, CBC, CRP, TSH3 #### [facility] [address] ALP [Catalytic activity/Vol] Alkaline phosphatase [Enzymatic activity/volume] in Serum or Plasma 34-104 [facility] Appearance of UrineOrdered B y: Jesus Ayala on 08-02-2024 Appearance (U) Urine appearance Clear [facility] Aspartate aminotransferase [ Enzymatic activity/volume] in Serum or PlasmaOrdered By: Jesus Ayala on 08-02-2024 AST [Catalytic activity/Vol] 13 U/L Normal [facility] Comment on above: Performed By: #### U PE RAND, CAMILLA,URINE, ALDOLASE, SPE, CAMILLA SERUM #### [facility] , #### ADDONUAPLUS, T4F, ESR, CMP, CK, CBC, CRP, TSH3 #### [facility] [address] [place] [address] AST [Catalytic activity/Vol] Aspartate aminotransferase [Enzymatic activity/volume] in Serum or Plasma [facility] Automated basophil %Ordered By: Jesus Ayala on 08-02-2024 Basophils/100 WBC (Bld) 0.6 % Normal . [facility] Comment on above: Performed By: #### U PE RAND, CAMILLA,URINE, ALDOLASE, SPE, CAMILLA SERUM ####[facility] ,#### ADDONUAPLUS, T4F, ESR, CMP, CK, CBC, CRP, TSH3 ####[facility] [address] [place] [address] Automated basophil countOrde red By: Jesus Ayala on 08-02-2024 Basophils (Bld) [#/Vol] 0.0 10*3/uL Normal 0.0-0.2 [facility] Comment on above: Performed By: #### U PE RAND, CAMILLA,URINE, ALDOLASE, SPE, CAMILLA SERUM ####[facility] ,#### ADDONUAPLUS, T4F, ESR, CMP, CK, CBC, CRP, TSH3 ####[address] Automated blood monocyte cou ntOrdered By: Jesus Jamie on 08-02-2024 Monocytes (Bld) [#/Vol] 0.4 10*3/uL Normal 0.0-0.8 [facility] Comment on above: Performed By: #### U PE RAND, CAMILLA,URINE, ALDOLASE, SPE, CAMILLA SERUM ####[facility] ,#### ADDONUAPLUS, T4F, ESR, CMP, CK, CBC, CRP, TSH3 ####[address] Automated eosinophil %Ordere d By: Jesus Ayala on 08-02-2024 Eosinophils/100 WBC (Bld) 3.0 % Normal . [facility] Comment on above: Performed By: #### U PE RAND, CAMILLA,URINE, ALDOLASE, SPE, CAMILLA SERUM ####[facility] ,#### ADDONUAPLUS, T4F, ESR, CMP, CK, CBC, CRP, TSH3 ####[address] Automated eosinophil countOr dered By: Jesus Ayala on 08-02-2024 Eosinophils (Bld) [#/Vol] 0.2 10*3/uL Normal 0.0-0.45 [facility] Comment on above: Performed By: #### U PE RAND, CAMILLA,URINE, ALDOLASE, SPE, CAMILLA SERUM ####[facility] ,#### ADDONUAPLUS, T4F, ESR, CMP, CK, CBC, CRP, TSH3 ####[address] Automated epithelial cells c ount in urine sediment (number/area)Ordered By: Jesus Ayala on 08-02-2024 Epithelial cells Auto (Urine sed) [#/Area] 5-9 [HPF] High 0-2 [facility] Epithelial cells Auto (Urine sed) [#/Area] Automated epithelial cells count in urine sediment (number/area) High 0-2 [facility] Automated erythrocytes count in urine sediment (number/area)Ordered By: Jesus Ayala on 08-02-2024 RBC Auto (Urine sed) [#/Area] Erythrocytes [#/area] in Urine sediment by Automated count 0-4 [facility] Automated leukocytes count i n urine sediment (number/area)Ordered By: Jesus Ayala on 08-02-2024 WBC Auto (Urine sed) [#/Area] Leukocytes [#/area] in Urine sediment by Automated count 0-4 [facility] Automated monocyte %Ordered By: Jesus Ayala on 08-02-2024 Monocytes/100 WBC (Bld) 4.5 % Normal . [facility] Comment on above: Performed By: #### U PE RAND, CAMILLA,URINE, ALDOLASE, SPE, CAMILLA SERUM ####[facility] ,#### ADDONUAPLUS, T4F, ESR, CMP, CK, CBC, CRP, TSH3 ####[facility] [address] Automated neutrophil %Ordere d By: Jesus Ayala on 08-02-2024 Neutrophils/100 WBC (Bld) 76.9 % Normal . [facility] Comment on above: Performed By: #### U PE RAND, CAMILLA,URINE, ALDOLASE, SPE, CAMILLA SERUM ####[facility] ,#### ADDONUAPLUS, T4F, ESR, CMP, CK, CBC, CRP, TSH3 ####[facility] [address] [place] [id number] [facility] Bacteria [Presence] in Urine by AutomatedOrdered By: Jesus Ayala on 08-02-2024 Bacteria Auto Ql (U) None seen [HPF] None Seen [facility] Basophils Auto (Bld) [#/Vol] Ordered By: Jesus Ayala on 08-02-2024 Basophils (Bld) [#/Vol] Automated basophil count 0.0-0.2 [facility] Basophils/100 WBC Auto (Bld) Ordered By: Jesus Ayala on 08-02-2024 Basophils/100 WBC (Bld) Automated basophil % . [facility] Bilirubin Test strip Ql (U)O rdered By: Jesus Ayala on 08-02-2024 Bilirubin Ql (U) Negative Negative [facility] Bilirubin Ql (U) Bilirubin.total [Presence] in Urine by Test strip Negative [facility] Bilirubin.total [Mass/volume ] in Serum or PlasmaOrdered By: Jesus Ayala on 08-02-2024 Bilirubin [Mass/Vol] 0.3 mg/dL Normal 0.3-1.0 [facility] Comment on above: Performed By: #### U PE RAND, CAMILLA,URINE, ALDOLASE, SPE, CAMILLA SERUM #### [facility] , #### ADDONUAPLUS, T4F, ESR, CMP, CK, CBC, CRP, TSH3 #### [facility] [address] Bilirubin [Mass/Vol] Bilirubin.total [Mass/volume] in Serum or Plasma 0.3-1.0 [facility] C reactive protein [Mass/vol ume] in Serum or PlasmaOrdered By: Jesus Ayala on 08-02-2024 CRP [Mass/Vol] 1.7 mg/dL High 0.0-0.5 [facility] CRP [Mass/Vol] C reactive protein [Mass/volume] in Serum or Plasma High 0.0-0.5 [facility] C-Reactive Proteinon 024 C-Reactive Protein 1.7 mg/dL High 0.0-0.5 [facility] Comment on above: Performed By: #### U PE RAND, CAMILLA,URINE, ALDOLASE, SPE, CAMILLA SERUM #### [facility] , #### ADDONUAPLUS, T4F, ESR, CMP, CK, CBC, CRP, TSH3 #### [facility] [address] CARCINOEMBRYONIC ANTIGENon 1 [facility] CEA ser/plasOrdered By: Gustavo Hinojosa on 08-02-2024 Carcinoembryonic Ag [Mass/Vol] Serum or plasma carcinoembryonic antigen measurement (mass/volume) 0.0-3.0 [facility] Comment on above: Serial tumor marker results determined by assays using different manufacturers or methods may not be comparable.[facility] certified cytotechnologist and method:RUSSELL UNICEL DXI, 2 SITE IMMUNOENZYMATIC SANDWICH ASSAY. Calcium [Mass/volume] in Ser um or PlasmaOrdered By: Jesus Ayala on 08-02-2024 Calcium [Mass/Vol] 9.8 mg/dL Normal 8.6-10.3 [facility] Comment on above: Performed By: #### U PE RAND, CAMILLA,URINE, ALDOLASE, SPE, CAMILLA SERUM #### [facility] , #### ADDONUAPLUS, T4F, ESR, CMP, CK, CBC, CRP, TSH3 #### [facility] [address] Calcium [Mass/Vol] Calcium [Mass/volume ] in Serum or Plasma 8.6-10.3 [facility] Cancer Antigen 125on 024 Cancer Antigen 125 12.9 Normal 0.0-38.1 [facility] Comment on above: Result Comment: [facility] Electrochemiluminescence Immunoassay (ECLIA) Values obtained with different assay methods or kits cannot be used interchangeably. Results cannot be interpreted as absolute evidence of the presence or absence of malignant disease. Performed at: [facility] [address] [id number] Band Manager: Gabriel Whitman PhD, Phone: [phone] PERFORMED BY: [facility] [address] [place] [address] PATHOLOGIST [employer] ANAHY MCKEE M.D. Performed By: #### C A125 ####[facility] ,#### CEA ####[facility] Carbon dioxide, total [Moles /volume] in Serum or PlasmaOrdered By: Jesus Ayala on 08-02-2024 CO2 [Moles/Vol] 24.6 mmol/L Normal 21.0-31.0 [facility] Comment on above: Performed By: #### U PE RAND, CAMILLA,URINE, ALDOLASE, SPE, CAMILLA SERUM #### [facility] , #### ADDONUAPLUS, T4F, ESR, CMP, CK, CBC, CRP, TSH3 #### [facility] [address] CO2 [Moles/Vol] Carbon dioxide, tota l [Moles/volume] in Serum or Plasma 21.0-31.0 [facility] Chloride [Moles/volume] in S aislinn or PlasmaOrdered By: Jesus Ayala on 08-02-2024 Chloride [Moles/Vol] 105 mmol/L Normal [address] [place] [address] Comment on above: Performed By: #### U PE RAND, CAMILLA,URINE, ALDOLASE, SPE, CAMILLA SERUM #### [facility] , #### ADDONUAPLUS, T4F, ESR, CMP, CK, CBC, CRP, TSH3 #### [facility] [address] Chloride [Moles/Vol] Chloride [Moles/vol ume] in Serum or Plasma [address] Color Auto (U)Ordered By: Chan Ayala on 08-02-2024 Color (U) Color of Urine by Auto Yellow [facility] Color of Urine by AutoOrdere d By: Jesus Ayala on 08-02-2024 Color (U) Light-yellow Normal [facility] Comment on above: Order Comment: Name Collection Type:: Clean-Voided Midstream Performed By: #### U PE RAND, CAMILLA,URINE, ALDOLASE, SPE, CAMILLA SERUM #### [facility] , #### ADDONUAPLUS, T4F, ESR, CMP, CK, CBC, CRP, TSH3 #### [facility] [address] [place] [id number] [facility] Complete Blood Count Auto Di ffon 08-02-2024 Mean Corpuscular HGB Conc 33.5 g/dL Normal 32.0-35.0 [facility] Comment on above: Performed By: #### U PE RAND, CAMILLA,URINE, ALDOLASE, SPE, CAMILLA SERUM ####[facility] ,#### ADDONUAPLUS, T4F, ESR, CMP, CK, CBC, CRP, TSH3 ####[facility] NRBC% 0.1 /100{WBC} Normal 0-0.5 [facility] Comment on above: Performed By: #### U PE RAND, CAMILLA,URINE, ALDOLASE, SPE, CAMILLA SERUM ####[facility] ,#### ADDONUAPLUS, T4F, ESR, CMP, CK, CBC, CRP, TSH3 ####[address] Comprehensive Metabolic Pane jonathan 08-02-2024 Albumin [Mass/Vol] 4.3 g/dL Normal 3.5-5.7 [facility] Comment on above: Performed By: #### U PE RAND, CAMILLA,URINE, ALDOLASE, SPE, CAMILLA SERUM #### [facility] , #### ADDONUAPLUS, T4F, ESR, CMP, CK, CBC, CRP, TSH3 #### [address] GFR/1.73 sq M.predicted MDRD (S/P/Bld) [Vol rate/Area] mL/min/{1.73_m2} Normal [facility] Comment on above: Performed By: #### U PE RAND, CAMILLA,URINE, ALDOLASE, SPE, CAMILLA SERUM #### [facility] , #### ADDONUAPLUS, T4F, ESR, CMP, CK, CBC, CRP, TSH3 #### [address] Creatine kinase [Enzymatic a ctivity/volume] in Serum or PlasmaOrdered By: Jesus Ayala on 08-02-2024 CK [Catalytic activity/Vol] 39 U/L Normal [facility] Comment on above: Result Comment: PERF ORMED BY: [place] [address] PATHOLOGIST [employer] ANAHY MCKEE M.D. Performed By: #### U PE RAND, CAMILLA,URINE, ALDOLASE, SPE, CAMILLA SERUM #### [facility] , #### ADDONUAPLUS, T4F, ESR, CMP, CK, CBC, CRP, TSH3 #### [facility] [address] [place] [address] CK [Catalytic activity/Vol] Creatine kinase [Enzymatic activity/volume] in Serum or Plasma [facility] Creatinine [Mass/volume] in Serum or PlasmaOrdered By: Jesus Ayala on 08-02-2024 Creatinine [Mass/Vol] 1.10 mg/dL Normal 0.60-1.20 [facility] Comment on above: Performed By: #### U PE RAND, CAMILLA,URINE, ALDOLASE, SPE, CAMILLA SERUM #### [facility] , #### ADDONUAPLUS, T4F, ESR, CMP, CK, CBC, CRP, TSH3 #### [facility] [address] [place] [address] Creatinine [Mass/Vol] Creatinine [Mass/v olume] in Serum or Plasma 0.60-1.20 [facility] Dipstick and Microscopicon 1 Bacteria,Urine None Seen Normal None Seen [facility] Comment on above: Order Comment: Name Collection Type:: Clean-Voided Midstream Performed By: #### U PE RAND, CAMILLA,URINE, ALDOLASE, SPE, CAMILLA SERUM #### [facility] , #### ADDONUAPLUS, T4F, ESR, CMP, CK, CBC, CRP, TSH3 #### [facility] [address] [place] [address] Bilirubin,Urine Negative Normal Negative [facility] Comment on above: Order Comment: Name Collection Type:: Clean-Voided Midstream Performed By: #### U PE RAND, CAMILLA,URINE, ALDOLASE, SPE, CAMILLA SERUM #### [facility] , #### ADDONUAPLUS, T4F, ESR, CMP, CK, CBC, CRP, TSH3 #### [address] Glucose Ql (U) 50 mg/dL High Normal [facility] Comment on above: Order Comment: Name Collection Type:: Clean-Voided Midstream Performed By: #### U PE RAND, CAMILLA,URINE, ALDOLASE, SPE, CAMILLA SERUM #### [facility] , #### ADDONUAPLUS, T4F, ESR, CMP, CK, CBC, CRP, TSH3 #### [address] Hyaline Casts,Urine 0-8 Normal 0-8 [facility] Comment on above: Order Comment: Name Collection Type:: Clean-Voided Midstream Result Comment: PERF ORMED BY: [place] [address] PATHOLOGIST [employer] ANAHY MCKEE M.D. Performed By: #### U PE RAND, CAMILLA,URINE, ALDOLASE, SPE, CAMILLA SERUM #### [facility] , #### ADDONUAPLUS, T4F, ESR, CMP, CK, CBC, CRP, TSH3 #### [address] Nitrite,Urine Negative Normal Negative [facility] Comment on above: Order Comment: Name Collection Type:: Clean-Voided Midstream Performed By: #### U PE RAND, CAMILLA,URINE, ALDOLASE, SPE, CAMILLA SERUM #### [facility] , #### ADDONUAPLUS, T4F, ESR, CMP, CK, CBC, CRP, TSH3 #### [address] Occult Blood,Urine Negative Normal Negative [facility] Comment on above: Order Comment: Name Collection Type:: Clean-Voided Midstream Performed By: #### U PE RAND, CAMILLA,URINE, ALDOLASE, SPE, CAMILLA SERUM #### [facility] , #### ADDONUAPLUS, T4F, ESR, CMP, CK, CBC, CRP, TSH3 #### [address] Protein,Urine Negative Normal Negative [facility] Comment on above: Order Comment: Name Collection Type:: Clean-Voided Midstream Performed By: #### U PE RAND, CAMILLA,URINE, ALDOLASE, SPE, CAMILLA SERUM #### [facility] , #### ADDONUAPLUS, T4F, ESR, CMP, CK, CBC, CRP, TSH3 #### [address] RBC,Urine 3-4 Normal 0-4 [facility] Comment on above: Order Comment: Name Collection Type:: Clean-Voided Midstream Performed By: #### U PE RAND, CAMILLA,URINE, ALDOLASE, SPE, CAMILLA SERUM #### [facility] , #### ADDONUAPLUS, T4F, ESR, CMP, CK, CBC, CRP, TSH3 #### [address] Specificy [place],Urine 1.013 Normal 1.001-1.030 [facility] Comment on above: Order Comment: Name Collection Type:: Clean-Voided Midstream Performed By: #### U PE RAND, CAMILLA,URINE, ALDOLASE, SPE, CAMILLA SERUM #### [facility] , #### ADDONUAPLUS, T4F, ESR, CMP, CK, CBC, CRP, TSH3 #### [facility] [address] [place] [address] Squamous Epithelial Cell,Urine 5-9 High 0-2 [facility] Comment on above: Order Comment: Name Collection Type:: Clean-Voided Midstream Performed By: #### U PE RAND, CAMILLA,URINE, ALDOLASE, SPE, CAMILLA SERUM #### [facility] , #### ADDONUAPLUS, T4F, ESR, CMP, CK, CBC, CRP, TSH3 #### [facility] [address] [place] [address] Urobilinogen,Urine Normal Normal Normal [facility] Comment on above: Order Comment: Name Collection Type:: Clean-Voided Midstream Performed By: #### U PE RAND, CAMILLA,URINE, ALDOLASE, SPE, CAMILLA SERUM #### [facility] , #### ADDONUAPLUS, T4F, ESR, CMP, CK, CBC, CRP, TSH3 #### [address] WBC,Urine 3-4 Normal 0-4 [facility] Comment on above: Order Comment: Name Collection Type:: Clean-Voided Midstream Performed By: #### U PE RAND, CAMILLA,URINE, ALDOLASE, SPE, CAMILLA SERUM #### [facility] , #### ADDONUAPLUS, T4F, ESR, CMP, CK, CBC, CRP, TSH3 #### [address] Eosinophils Auto (Bld) [#/Vo l]Ordered By: Jesus Ayala on 08-02-2024 Eosinophils (Bld) [#/Vol] Automated eosinophil count 0.0-0.45 [facility] Eosinophils/100 WBC Auto (Bl d)Ordered By: Jesus Ayala on 08-02-2024 Eosinophils/100 WBC (Bld) Automated eosinophil % . [facility] Erythrocyte Sedimentation Ra mathieu 08-02-2024 ESR (Bld) [Velocity] 73 mm/h High 0-19 [facility] Comment on above: Result Comment: PERF ORMED BY: [place] [address] PATHOLOGIST [employer] ANAHY MCKEE M.D. Performed By: #### U PE RAND, CAMILLA,URINE, ALDOLASE, SPE, CAMILLA SERUM ####[facility] ,#### ADDONUAPLUS, T4F, ESR, CMP, CK, CBC, CRP, TSH3 ####[place] [address] [address] Erythrocyte distribution wid th Auto (RBC) [Ratio]Ordered By: Jesus Gruberrow on 08-02-2024 Erythrocyte distribution width (RBC) [Ratio] Erythrocyte distribution width [Ratio] by Automated count High 11.9-15.3 [facility] Erythrocyte distribution wid th [Ratio] by Automated countOrdered By: Jesus Gruberrow on 08-02-2024 Erythrocyte distribution width (RBC) [Ratio] 15.7 % High 11.9-15.3 [facility] Comment on above: Performed By: #### U PE RAND, CAMILLA,URINE, ALDOLASE, SPE, CAMILLA SERUM ####[facility] ,#### ADDONUAPLUS, T4F, ESR, CMP, CK, CBC, CRP, TSH3 ####[place] [address] [address] Erythrocyte sedimentation ra te by Photometric methodOrdered By: Jesus Gruberrow on 08-02-2024 ESR Photometric method (Bld) [Velocity] 73 mm/hr High 0-19 [facility] ESR Photometric method (Bld) [Velocity] Erythrocyte sedimentation rate by Photometric method High 0-19 [facility] Erythrocytes [#/area] in Uri ne sediment by Automated countOrdered By: Jesus Jamie on 08-02-2024 RBC Auto (Urine sed) [#/Area] 3-4 [HPF] 0-4 [facility] Erythrocytes [#/volume] in B lood by Automated countOrdered By: Jesus Jamie on 08-02-2024 RBC (Bld) [#/Vol] 4.37 10*6/uL Normal 3.60-5.00 [facility] Comment on above: Performed By: #### U PE RAND, CAMILLA,URINE, ALDOLASE, SPE, CAMILLA SERUM ####[facility] ,#### ADDONUAPLUS, T4F, ESR, CMP, CK, CBC, CRP, TSH3 ####[facility] [place] [id number] [facility] Globulin Calc (S) [Mass/Vol] Ordered By: Jesus Ayala on 08-02-2024 Globulin (S) [Mass/Vol] Serum globulin measurement by calculation (mass/volume) [facility] Glucose [Mass/volume] in Ser um or PlasmaOrdered By: Jesus Ayala on 08-02-2024 Glucose [Mass/Vol] 146 mg/dL [facility] 70-100 [facility] Comment on above: ADA recommended refe rence rangeRandom Glucose Reference Range is dependent on time and content of last meal. Glucose of more than 200 mg/dL in a nonstressed, ambulatory subject supports the diagnosis of Diabetes Mellitus. Result Comment: [place] om Glucose Reference Range is dependent on time and content of last meal. Glucose of more than 200 mg/dL in a nonstressed, ambulatory subject supports the diagnosis of Diabetes Mellitus. ADA recommended reference range Performed By: #### U PE RAND, CAMILLA,URINE, ALDOLASE, SPE, CAMILLA SERUM #### [facility] , #### ADDONUAPLUS, T4F, ESR, CMP, CK, CBC, CRP, TSH3 #### [facility] [address] Glucose [Mass/Vol] Glucose [Mass/volume ] in Serum or Plasma [address] Comment on above: ADA recommended refe rence rangeRandom Glucose Reference Range is dependent on time and content of last meal. Glucose of more than 200 mg/dL in a nonstressed, ambulatory subject supports the diagnosis of Diabetes Mellitus. Glucose [Mass/volume] in Uri ne by Test stripOrdered By: Jesus Ayala on 08-02-2024 Glucose Test strip (U) [Mass/Vol] 50 mg/dL [facility] Normal [facility] Glucose Test strip (U) [Mass/Vol] Glucose [Mass/volume] in Urine by Test strip [facility] Hematocrit Auto (Bld) [Volum e fraction]Ordered By: Jesus Ayala on 08-02-2024 Hematocrit (Bld) [Volume fraction] Hematocrit [Volume Fraction] of Blood by Automated count 34.0-46.4 [facility] Hematocrit [Volume Fraction] of Blood by Automated countOrdered By: Jesus Gruberrow on 08-02-2024 Hematocrit (Bld) [Volume fraction] 37.0 % Normal 34.0-46.4 [facility] Comment on above: Performed By: #### U PE RAND, CAMILLA,URINE, ALDOLASE, SPE, CAMILLA SERUM ####[facility] ,#### ADDONUAPLUS, T4F, ESR, CMP, CK, CBC, CRP, TSH3 ####[id number] Hemoglobin Test strip Ql (U) Ordered By: Jesus Ayala on 08-02-2024 Hemoglobin Ql (U) Negative Negative [facility] Hemoglobin Ql (U) Hemoglobin [Presence ] in Urine by Test strip Negative [facility] Hemoglobin [Mass/volume] in BloodOrdered By: Jesus Ayala on 08-02-2024 Hemoglobin (Bld) [Mass/Vol] 12.4 g/dL Normal 11.8-15.4 [facility] Comment on above: Performed By: #### U PE RAND, CAMILLA,URINE, ALDOLASE, SPE, CAMILLA SERUM ####[facility] ,#### ADDONUAPLUS, T4F, ESR, CMP, CK, CBC, CRP, TSH3 ####[address] Hemoglobin (Bld) [Mass/Vol] Hemoglobin [Mass/volume] in Blood 11.8-15.4 [facility] Immunofixation for UrineOrde red By: Jesus Ayala on 08-02-2024 Interpretation Immunofixation (U) [Interp] Immunofixation for Urine . [facility] Comment on above: No monoclonality det ected.Performed at: [facility] [id number] Director: Gabriel Whitman PhD, Phone: [phone] Immunofixation, (CAMILLA), Urine on 08-02-2024 Immunofixation, (CAMILLA), Urine Comment Normal . [facility] Comment on above: Result Comment: No m onoclonality detected. Performed at: [email or web address] [id number] Band Manager: Gabriel Whitman PhD, Phone: [phone] Performed By: #### U PE RAND, CAMILLA,URINE, ALDOLASE, SPE, CAMILLA SERUM ####[facility] ,#### ADDONUAPLUS, T4F, ESR, CMP, CK, CBC, CRP, TSH3 ####[place] [id number] [facility] Immunofixation,Serumon 08-02 Immunofixation, Serum Comment Normal . [facility] Comment on above: Result Comment: No m onoclonality detected. Performed By: #### U PE RAND, CAMILLA,URINE, ALDOLASE, SPE, CAMILLA SERUM ####[facility] ,#### ADDONUAPLUS, T4F, ESR, CMP, CK, CBC, CRP, TSH3 ####[place] [id number] [facility] Immunoglobulin A, Serum 136 mg/dL Normal 87-352 [facility] Comment on above: Performed By: #### U PE RAND, CAMILLA,URINE, ALDOLASE, SPE, CAMILLA SERUM ####[facility] ,#### ADDONUAPLUS, T4F, ESR, CMP, CK, CBC, CRP, TSH3 ####[place] [id number] [facility] Immunoglobulin G 1357 mg/dL Normal [phone] [facility] Comment on above: Performed By: #### U PE RAND, CAMILLA,URINE, ALDOLASE, SPE, CAMILLA SERUM ####[facility] ,#### ADDONUAPLUS, T4F, ESR, CMP, CK, CBC, CRP, TSH3 ####[address] [address] [facility] Immunoglobulin M, Serum 94 mg/dL Normal 26-217 [facility] Comment on above: Result Comment: Perf ormed at: - [facility] [place] [id number] [place], [place] [id number] Band Manager: Gabriel Whitman PhD, Phone: [phone] Performed By: #### U PE RAND, CAMILLA,URINE, ALDOLASE, SPE, CAMILLA SERUM ####[facility] ,#### ADDONUAPLUS, T4F, ESR, CMP, CK, CBC, CRP, TSH3 ####[address] Ketones Test strip Ql (U)Ord ered By: Jesus Ayala on 08-02-2024 Ketones Ql (U) Ketones [Presence] i n Urine by Test strip Negative [facility] Ketones [Presence] in Urine by Test stripOrdered By: Jesus Ayala on 08-02-2024 Ketones Ql (U) Negative Normal Negative [facility] Comment on above: Order Comment: Name Collection Type:: Clean-Voided Midstream Performed By: #### U PE RAND, CAMILLA,URINE, ALDOLASE, SPE, CAMILLA SERUM #### [facility] , #### ADDONUAPLUS, T4F, ESR, CMP, CK, CBC, CRP, TSH3 #### [facility] [address] [place] [address] Laboratory - UrinalysisOrder ed By: Jesus Ayala on 08-02-2024 Hyaline casts LM Ql (Urine sed) 0-8 [LPF] 0-8 [facility] Leukocyte esterase [Presence ] in Urine by Test stripOrdered By: Jesus Ayala on 08-02-2024 Leukocyte esterase Test strip Ql (U) Negative Normal Negative [facility] Comment on above: Order Comment: Name Collection Type:: Clean-Voided Midstream Performed By: #### U PE RAND, CAMILLA,URINE, ALDOLASE, SPE, CAMILLA SERUM #### [facility] , #### ADDONUAPLUS, T4F, ESR, CMP, CK, CBC, CRP, TSH3 #### [address] Leukocyte esterase Test strip Ql (U) Leukocyte esterase [Presence] in Urine by Test strip Negative [facility] Leukocytes [#/area] in Urine sediment by Automated countOrdered By: Jesus Ayala on 08-02-2024 WBC Auto (Urine sed) [#/Area] 3-4 [HPF] 0-4 [facility] Leukocytes [#/volume] correc noah for nucleated erythrocytes in Blood by Automated counOrdered By: Jesus Ayala on 08-02-2024 WBC corrected for nucl RBC Auto (Bld) [#/Vol] 7.8 10*3/uL 3.8-11.6 [facility] WBC corrected for nucl RBC Auto (Bld) [#/Vol] Leukocytes [#/volume] corrected for nucleated erythrocytes in Blood by Automated coun .8-11.6 [facility] Leukocytes [#/volume] in Blo od by Automated countOrdered By: Jesus Gruberrow on 08-02-2024 WBC (Bld) [#/Vol] 7.8 10*3/uL Normal 3.8-11.6 [facility] Comment on above: Performed By: #### U PE RAND, CAMILLA,URINE, ALDOLASE, SPE, CAMILLA SERUM ####[facility] ,#### ADDONUAPLUS, T4F, ESR, CMP, CK, CBC, CRP, TSH3 ####[facility] [address] [place] [address] [facility] Lymphocytes Auto (Bld) [#/Vo l]Ordered By: Jesushelio Ayala on 08-02-2024 Lymphocytes (Bld) [#/Vol] Lymphocytes [#/volume] in Blood by Automated count .00-.8 [facility] Lymphocytes [#/volume] in Bl ood by Automated countOrdered By: Jesus Jamie on 08-02-2024 Lymphocytes (Bld) [#/Vol] 1.2 10*3/uL Normal 1.00-4.8 [facility] Comment on above: Performed By: #### U PE RAND, CAMILLA,URINE, ALDOLASE, SPE, CAMILLA SERUM ####[facility] ,#### ADDONUAPLUS, T4F, ESR, CMP, CK, CBC, CRP, TSH3 ####[place] [address] [place] [id number] [facility] Lymphocytes/100 WBC Auto (Bl d)Ordered By: Jesus Ayala on 08-02-2024 Lymphocytes/100 WBC (Bld) Lymphocytes/100 leukocytes in Blood by Automated count . [facility] Lymphocytes/100 leukocytes i n Blood by Automated countOrdered By: Jesus Ayala on 08-02-2024 Lymphocytes/100 WBC (Bld) 15.0 % Normal . [facility] Comment on above: Performed By: #### U PE RAND, CAMILLA,URINE, ALDOLASE, SPE, CAMILLA SERUM ####[facility] ,#### ADDONUAPLUS, T4F, ESR, CMP, CK, CBC, CRP, TSH3 ####[place] [address] [place] [id number] [facility] MCH Auto (RBC) [Entitic mass ]Ordered By: Jesus Ayala on 08-02-2024 MCH (RBC) [Entitic mass] MCH [Entitic mass] by Automated count 24.7-34.3 [facility] MCH [Entitic mass] by Automa noah countOrdered By: Jesus Ayala on 08-02-2024 MCH (RBC) [Entitic mass] 28.3 pg Normal 24.7-34.3 [facility] Comment on above: Performed By: #### U PE RAND, CAMILLA,URINE, ALDOLASE, SPE, CAMILLA SERUM ####[facility] ,#### ADDONUAPLUS, T4F, ESR, CMP, CK, CBC, CRP, TSH3 ####[place] [id number] [facility] MCHC Auto (RBC) [Mass/Vol]Or dered By: Jesus Ayala on 08-02-2024 MCHC (RBC) [Mass/Vol] 33.5 g/dL 32.0-35.0 [facility] MCHC (RBC) [Mass/Vol] MCHC [Mass/volume] by Automated count 32.0-35.0 [facility] MCV Auto (RBC) [Entitic vol] Ordered By: Jesus Ayala on 08-02-2024 MCV (RBC) [Entitic vol] MCV [Entitic vol ume] by Automated count 80-100 [facility] MCV [Entitic volume] by Auto mated countOrdered By: Jesus Ayala on 08-02-2024 MCV (RBC) [Entitic vol] 84.6 fL Normal 80-100 [facility] Comment on above: Performed By: #### U PE RAND, CAMILLA,URINE, ALDOLASE, SPE, CAMILLA SERUM ####[facility] ,#### ADDONUAPLUS, T4F, ESR, CMP, CK, CBC, CRP, TSH3 ####[facility] [address] Monocytes Auto (Bld) [#/Vol] Ordered By: Jesus Ayala on 08-02-2024 Monocytes (Bld) [#/Vol] Automated blood monocyte count 0.0-0.8 [facility] Monocytes/100 WBC Auto (Bld) Ordered By: Jesus Ayala on 08-02-2024 Monocytes/100 WBC (Bld) Automated monocyte % . [facility] Neutrophils Auto (Bld) [#/Vo l]Ordered By: Jesus Ayala on 08-02-2024 Neutrophils (Bld) [#/Vol] Neutrophils [#/volume] in Blood by Automated count 1.8-7.7 [facility] Neutrophils [#/volume] in Bl ood by Automated countOrdered By: Jesus Ayala on 08-02-2024 Neutrophils (Bld) [#/Vol] 6.0 10*3/uL Normal 1.8-7.7 [facility] Comment on above: Performed By: #### U PE RAND, CAMILLA,URINE, ALDOLASE, SPE, CAMILLA SERUM ####[facility] ,#### ADDONUAPLUS, T4F, ESR, CMP, CK, CBC, CRP, TSH3 ####[facility] [address] Neutrophils/100 WBC Auto (Bl d)Ordered By: Jesus Ayala on 08-02-2024 Neutrophils/100 WBC (Bld) Automated neutrophil % . [facility] Nitrite Test strip Ql (U)Ord ered By: Jesus Gruberrow on 08-02-2024 Nitrite Ql (U) Negative Negative [facility] Nitrite Ql (U) Nitrite [Presence] i n Urine by Test strip Negative [facility] No Panel InformationOrdered By: Jesus Ayala on 08-02-2024 Estimated GFR (CKD-EPI) > 60.0 mL/Min [facility] Creatinine Clearance (Chem N/A [facility] Protein Electrophoresis M-Maury Not observed g/dL Not Observed [facility] Protein Electrophoresis Note Comment . [facility] Comment on above: Protein electrophore sis scan will follow via computer,mail, or refrigeration mechanic delivery.Performed at: [facility] [id number] Director: Gabriel Whitman PhD, Phone: [phone] Urine Random Prot Electrophor Note Comment . [facility] Comment on above: Protein electrophore sis scan will follow via computer,mail, or refrigeration mechanic delivery. Nucleated erythrocytes [Pres ence] in Blood by Automated countOrdered By: Jesus Ayala on 08-02-2024 Nucleated RBC Auto Ql (Bld) 0.1 /100{WBC} 0-0.5 [facility] Nucleated RBC Auto Ql (Bld) Nucleated erythrocytes [Presence] in Blood by Automated count 0-0.5 [facility] Platelet mean volume Auto (B ld) [Entitic vol]Ordered By: Jesus Ayala on 08-02-2024 Platelet mean volume (Bld) [Entitic vol] Platelet mean volume [Entitic volume] in Blood by Automated count 6.3-10.7 [facility] Platelet mean volume [Entiti c volume] in Blood by Automated countOrdered By: Jesus Ayala on 08-02-2024 Platelet mean volume (Bld) [Entitic vol] 6.6 fL Normal 6.3-10.7 [facility] Comment on above: Performed By: #### U PE RAND, CAMILLA,URINE, ALDOLASE, SPE, CAMILLA SERUM ####[facility] ,#### ADDONUAPLUS, T4F, ESR, CMP, CK, CBC, CRP, TSH3 ####[facility] Platelets Auto (Bld) [#/Vol] Ordered By: Jesus Ayala on 08-02-2024 Platelets (Bld) [#/Vol] Platelets [#/vol ume] in Blood by Automated count 150-450 [facility] Platelets [#/volume] in Bloo d by Automated countOrdered By: Jesus Ayala on 08-02-2024 Platelets (Bld) [#/Vol] 439 10*3/uL Normal 150-450 [facility] Comment on above: Performed By: #### U PE RAND, CAMILLA,URINE, ALDOLASE, SPE, CAMILLA SERUM ####[facility] ,#### ADDONUAPLUS, T4F, ESR, CMP, CK, CBC, CRP, TSH3 ####[facility] Potassium [Moles/volume] in Serum or PlasmaOrdered By: Jesus Ayala on 08-02-2024 Potassium [Moles/Vol] 3.8 mmol/L Normal 3.5-5.1 [facility] Comment on above: Performed By: #### U PE RAND, CAMILLA,URINE, ALDOLASE, SPE, CAMILLA SERUM #### [facility] , #### ADDONUAPLUS, T4F, ESR, CMP, CK, CBC, CRP, TSH3 #### [facility] [address] Potassium [Moles/Vol] Potassium [Moles/v olume] in Serum or Plasma 3.5-5.1 [facility] Protein Electro, Random Urin yonis 08-02-2024 Albumin, Urine 36.1 % Normal . [facility] Comment on above: Performed By: #### U PE RAND, CAMILLA,URINE, ALDOLASE, SPE, CAMILLA SERUM ####[facility] ,#### ADDONUAPLUS, T4F, ESR, CMP, CK, CBC, CRP, TSH3 ####[address] Xtgcf-8-Wktvspnx, Urine 4.1 % Normal . [facility] Comment on above: Performed By: #### U PE RAND, CAMILLA,URINE, ALDOLASE, SPE, CAMILLA SERUM ####[facility] ,#### ADDONUAPLUS, T4F, ESR, CMP, CK, CBC, CRP, TSH3 ####[address] Arymo-5-Irdvkqrq, Urine 18.4 % Normal . [facility] Comment on above: Performed By: #### U PE RAND, CAMILLA,URINE, ALDOLASE, SPE, CAMILLA SERUM ####[facility] ,#### ADDONUAPLUS, T4F, ESR, CMP, CK, CBC, CRP, TSH3 ####[address] Beta Globulin, Urine 24.3 % Normal . [facility] Comment on above: Performed By: #### U PE RAND, CAMILLA,URINE, ALDOLASE, SPE, CAMILLA SERUM ####[facility] ,#### ADDONUAPLUS, T4F, ESR, CMP, CK, CBC, CRP, TSH3 ####[address] Gamma Globulin, Urine 17.1 % Normal . [facility] Comment on above: Performed By: #### U PE RAND, CAMILLA,URINE, ALDOLASE, SPE, CAMILLA SERUM ####[facility] ,#### ADDONUAPLUS, T4F, ESR, CMP, CK, CBC, CRP, TSH3 ####[address] M-Maury % Not Observed Normal Not Observed [facility] Comment on above: Performed By: #### U PE RAND, CAMILLA,URINE, ALDOLASE, SPE, CAMILLA SERUM ####[facility] ,#### ADDONUAPLUS, T4F, ESR, CMP, CK, CBC, CRP, TSH3 ####[address] Please Note: Comment Normal . [facility] Comment on above: Result Comment: Prot ein electrophoresis scan will follow via computer, mail, or refrigeration mechanic delivery. PERFORMED BY: [facility] [address] [place] [address] PATHOLOGIST [employer] LOCOMOTIVE ANAHY MCKEE M.D. Performed By: #### U PE RAND, CAMILLA,URINE, ALDOLASE, SPE, CAMILLA SERUM ####[facility] ,#### ADDONUAPLUS, T4F, ESR, CMP, CK, CBC, CRP, TSH3 ####[address] Protein (U) [Mass/Vol] 9.0 mg/dL Normal Not Estab. Th e [facility] Comment on above: Performed By: #### U PE RAND, CAMILLA,URINE, ALDOLASE, SPE, CAMILLA SERUM ####[facility] ,#### ADDONUAPLUS, T4F, ESR, CMP, CK, CBC, CRP, TSH3 ####[address] Protein Electrophoresis, Ser umon 08-02-2024 Albumin [Mass/Vol] 3.9 g/dL Normal 2.9-4.4 [facility] Comment on above: Performed By: #### U PE RAND, CAMILLA,URINE, ALDOLASE, SPE, CAMILLA SERUM ####[facility] ,#### ADDONUAPLUS, T4F, ESR, CMP, CK, CBC, CRP, TSH3 ####[address] Albumin/Globulin [Mass ratio] 1.1 {ratio} Normal 0.7-1.7 [facility] Comment on above: Performed By: #### U PE RAND, CAMILLA,URINE, ALDOLASE, SPE, CAMILLA SERUM ####[facility] ,#### ADDONUAPLUS, T4F, ESR, CMP, CK, CBC, CRP, TSH3 ####[address] Nrxck-7-Lwmcqynb 0.2 g/dL Normal 0.0-0.4 [facility] Comment on above: Performed By: #### U PE RAND, CAMILLA,URINE, ALDOLASE, SPE, CAMILLA SERUM ####[facility] ,#### ADDONUAPLUS, T4F, ESR, CMP, CK, CBC, CRP, TSH3 ####[address] Doogz-8-Wtodeekg 1.0 g/dL Normal 0.4-1.0 [facility] Comment on above: Performed By: #### U PE RAND, CAMILLA,URINE, ALDOLASE, SPE, CAMILLA SERUM ####[facility] ,#### ADDONUAPLUS, T4F, ESR, CMP, CK, CBC, CRP, TSH3 ####[address] Beta Globulin 1.2 g/dL Normal 0.7-1.3 [facility] Comment on above: Performed By: #### U PE RAND, CAMILLA,URINE, ALDOLASE, SPE, CAMILLA SERUM ####[facility] ,#### ADDONUAPLUS, T4F, ESR, CMP, CK, CBC, CRP, TSH3 ####[address] Gamma Globulin 1.3 g/dL Normal 0.4-1.8 [facility] Comment on above: Performed By: #### U PE RAND, CAMILLA,URINE, ALDOLASE, SPE, CAMILLA SERUM ####[facility] ,#### ADDONUAPLUS, T4F, ESR, CMP, CK, CBC, CRP, TSH3 ####[place] [address] [place] Globulin (S) [Mass/Vol] 3.6 g/dL Normal 2.2-3.9 T he [facility] Comment on above: Performed By: #### U PE RAND, CAMILLA,URINE, ALDOLASE, SPE, CAMILLA SERUM ####[facility] ,#### ADDONUAPLUS, T4F, ESR, CMP, CK, CBC, CRP, TSH3 ####[place] [address] [address] M-Maury Not Observed Normal Not Observed [facility] Comment on above: Performed By: #### U PE RAND, CAMILLA,URINE, ALDOLASE, SPE, CAMILLA SERUM ####[facility] ,#### ADDONUAPLUS, T4F, ESR, CMP, CK, CBC, CRP, TSH3 ####[place] [address] [address] SPE-Note Comment Normal . [facility] Comment on above: Result Comment: Prot ein electrophoresis scan will follow via computer, mail, or refrigeration mechanic delivery. Performed at: [facility] [address] [id number] Band Manager: Gabriel Whitman PhD, Phone: [phone] PERFORMED BY: [facility] [address] [place] [address] PATHOLOGIST [employer] LOCOMOTIVE ANAHY MCKEE M.D. Performed By: #### U PE RAND, CAMILLA,URINE, ALDOLASE, SPE, CAMILLA SERUM ####[facility] ,#### ADDONUAPLUS, T4F, ESR, CMP, CK, CBC, CRP, TSH3 ####[address] Protein Test strip (U) [Mass /Vol]Ordered By: Jesus Ayala on 08-02-2024 Protein (U) [Mass/Vol] Negative Negative [facility] Protein (U) [Mass/Vol] Protein [Mass/vol ume] in Urine by Test strip Negative [facility] Protein [Mass/volume] in Ser um or PlasmaOrdered By: Jesus Ayala on 08-02-2024 Protein [Mass/Vol] 7.5 g/dL Normal 6.0-8.5 [facility] Comment on above: Performed By: #### U PE RAND, CAMILLA,URINE, ALDOLASE, SPE, CAMILLA SERUM #### [facility] , #### ADDONUAPLUS, T4F, ESR, CMP, CK, CBC, CRP, TSH3 #### [facility] [address] Performed By: #### U PE RAND, CAMILLA,URINE, ALDOLASE, SPE, CAMILLA SERUM ####[facility] ,#### ADDONUAPLUS, T4F, ESR, CMP, CK, CBC, CRP, TSH3 ####[facility] Protein [Mass/Vol] Protein [Mass/volume ] in Serum or Plasma 6.0-8.5 [facility] RBC Auto (Bld) [#/Vol]Ordere d By: Jesus Ayala on 08-02-2024 RBC (Bld) [#/Vol] Erythrocytes [#/volu me] in Blood by Automated count 3.60-5.00 [facility] Serum aldolase measurementOr dered By: Jesus Ayala on 08-02-[address] biopsy 3.3-10.3 [facility] Comment on above: Performed at: [address] [id number] Director: Gabriel Whitman PhD, Phone: [phone] Serum globulin measurement ( mass/volume)Ordered By: Jesus Ayala on 08-02-2024 Globulin (S) [Mass/Vol] Serum globulin measurement (mass/volume) 2.2-3.9 [facility] Serum globulin measurement b y calculation (mass/volume)Ordered By: Jesus Ayala on 08-02-2024 Globulin (S) [Mass/Vol] 3.2 g/dL Normal [facility] Comment on above: Performed By: #### U PE RAND, CAMILLA,URINE, ALDOLASE, SPE, CAMILLA SERUM #### [facility] , #### ADDONUAPLUS, T4F, ESR, CMP, CK, CBC, CRP, TSH3 #### [facility] [address] Serum immunofixation electro phoresisOrdered By: Jesus Ayala on 08-02-2024 Serum Immunofixation Comment . [facility] Comment on above: No monoclonality det ected. Serum or plasma IgA measurem ent (mass/volume)Ordered By: Jesus Ayala on 08-02-2024 IgA [Mass/Vol] IgA [Mass/volume] in Serum or Plasma 87-352 [facility] Serum or plasma IgG measurem ent (mass/volume)Ordered By: Jesus Ayala on 08-02-2024 IgG [Mass/Vol] IgG [Mass/volume] in Serum or Plasma [phone] [facility] Serum or plasma IgM measurem ent (mass/volume)Ordered By: Jesus Ayala on 08-02-2024 IgM [Mass/Vol] IgM [Mass/volume] in Serum or Plasma 26-217 [facility] Comment on above: Performed at: [place] [id number] Director: Gabriel Whitman PhD, Phone: [phone] Serum or plasma albumin ge urement (mass/volume)Ordered By: Jesus Ayala on 08-02-2024 Albumin [Mass/Vol] Albumin [Mass/volume ] in Serum or Plasma 2.9-4.4 [facility] Serum or plasma albumin/glob ulin mass ratioOrdered By: Jesus Ayala on 08-02-2024 Albumin/Globulin [Mass ratio] 1.3 {ratio} Normal [facility] Comment on above: Performed By: #### U PE RAND, CAMILLA,URINE, ALDOLASE, SPE, CAMILLA SERUM #### [facility] , #### ADDONUAPLUS, T4F, ESR, CMP, CK, CBC, CRP, TSH3 #### [facility] [address] Albumin/Globulin [Mass ratio] Serum or plasma albumin/globulin mass ratio 0.7-1.7 [facility] Serum or plasma alpha 1 glob ulin measurement by electrophoresis (mass/volume)Ordered By: Jesus Jamie on 08-02-2024 Alpha 1 globulin Elph [Mass/Vol] Serum or plasma alpha 1 globulin measurement by electrophoresis (mass/volume) 0.0-0.4 [facility] Serum or plasma alpha 2 glob ulin measurement by electrophoresis (mass/volume)Ordered By: Jesus Gruberrow on 08-02-2024 Alpha 2 globulin Elph [Mass/Vol] Serum or plasma alpha 2 globulin measurement by electrophoresis (mass/volume) 0.4-1.0 [facility] Serum or plasma anion gap de terminationOrdered By: Jesus Gruberrow on 08-02-2024 Anion gap [Moles/Vol] 12.2 mmol/L Normal 6.0-15.0 [facility] Comment on above: Performed By: #### U PE RAND, CAMILLA,URINE, ALDOLASE, SPE, CAMILLA SERUM #### [facility] , #### ADDONUAPLUS, T4F, ESR, CMP, CK, CBC, CRP, TSH3 #### [facility] [address] Anion gap [Moles/Vol] Serum or plasma an ion gap determination 6.0-15.0 [facility] Serum or plasma beta globuli n measurement by electrophoresis (mass/volume)Ordered By: Jesus Ayala on 08-02-2024 Beta globulin Elph [Mass/Vol] Serum or plasma beta globulin measurement by electrophoresis (mass/volume) 0.7-1.3 [facility] Serum or plasma cancer antig en 125 (CA-125) measurement (units/volume)Ordered By: Blake Hinojosa on 08-02-2024 Cancer Ag 125 Qn Serum or plasma canc er antigen 125 (CA-125) measurement (units/volume) 0.0-38.1 [facility] Comment on above: [employer] El ectrochemiluminescence Immunoassay(ECLIA)Values obtained with different assay methods or kits cannotbe used interchangeably. Results cannot be interpreted asabsolute evidence of the presence or absence of malignantdisease.Performed at: - [place] [id number] [place], [place] [id number] Director: Gabriel Whitman PhD, Phone: [phone] Serum or plasma carcinoembry onic antigen measurement (mass/volume)Ordered By: Blake Hinojosa on 08-02-2024 Carcinoembryonic Ag [Mass/Vol] 1.0 ng/mL 0.0-3.0 [facility] Comment on above: Serial tumor marker results determined by assays using different manufacturers or methods may not be comparable.[facility] certified cytotechnologist and method:[employer] DXI, 2 SITE IMMUNOENZYMATIC SANDWICH ASSAY. Serum or plasma gamma globul in measurement by electrophoresis (mass/volume)Ordered By: Jesus Ayala on 08-02-2024 Gamma globulin Elph [Mass/Vol] Serum or plasma gamma globulin measurement by electrophoresis (mass/volume) 0.4-1.8 [facility] Sodium [Moles/volume] in Ser um or PlasmaOrdered By: Jesus Ayala on 08-02-2024 Sodium [Moles/Vol] 138 mmol/L Normal 136-145 [facility] Comment on above: Performed By: #### U PE RAND, CAMILLA,URINE, ALDOLASE, SPE, CAMILLA SERUM #### [facility] , #### ADDONUAPLUS, T4F, ESR, CMP, CK, CBC, CRP, TSH3 #### [facility] [address] Sodium [Moles/Vol] Sodium [Moles/volume ] in Serum or Plasma 136-145 [facility] Specific gravity Test strip (U) [Rel density]Ordered By: Jesus Ayala on 08-02-2024 Specific gravity (U) [Rel density] 1.013 1.001-1.030 [facility] Specific gravity (U) [Rel density] Specific gravity of Urine by Test strip 1.001-1.030 [facility] Thyrotropin [Units/volume] i n Serum or PlasmaOrdered By: Jesus Ayala on 08-02-2024 TSH Qn 2.77 m[IU]/L Normal 0.45-5.33 [facility] Comment on above: Result Comment: PERF ORMED BY: [place] [address] PATHOLOGIST [employer] LOCOMOTIVE ANAHY MCKEE M.D. Performed By: #### U PE RAND, CAMILLA,URINE, ALDOLASE, SPE, CAMILLA SERUM #### [facility] , #### ADDONUAPLUS, T4F, ESR, CMP, CK, CBC, CRP, TSH3 #### [facility] [address] [place] [address] TSH Qn Thyrotropin [Units/volume] in Serum or Plasma 0.45-5.33 [facility] Thyroxine (T4) free [Mass/vo lume] in Serum or PlasmaOrdered By: Jesus Ayala on 08-02-2024 Free T4 [Mass/Vol] 0.68 ng/dL Normal 0.61-1.12 [facility] Comment on above: Performed By: #### U PE RAND, CAMILLA,URINE, ALDOLASE, SPE, CAMILLA SERUM #### [facility] , #### ADDONUAPLUS, T4F, ESR, CMP, CK, CBC, CRP, TSH3 #### [facility] [address] [place] [address] Free T4 [Mass/Vol] Thyroxine (T4) free [Mass/volume] in Serum or Plasma 0.61-1.12 [facility] Urea nitrogen [Mass/volume] in Serum or PlasmaOrdered By: Jesus Aayla on 08-02-2024 Urea nitrogen [Mass/Vol] 14 mg/dL Normal 04-29 [facility] Comment on above: Performed By: #### U PE RAND, CAMILLA,URINE, ALDOLASE, SPE, CAMILLA SERUM #### [facility] , #### ADDONUAPLUS, T4F, ESR, CMP, CK, CBC, CRP, TSH3 #### [facility] [address] [place] [address] Urea nitrogen [Mass/Vol] Urea nitrogen [Mass/volume] in Serum or Plasma 04-29 [facility] Urine alpha 1 globulin/total protein by electrophoresisOrdered By: Jesus Ayala on 08-02-2024 Alpha 1 globulin Elph (U) [Mass fraction] Urine alpha 1 globulin/total protein by electrophoresis . [facility] Urine alpha 2 globulin/total protein ratio by electrophoresisOrdered By: Jesus Ayala on 08-02-2024 Alpha 2 globulin Elph (U) [Mass fraction] Urine alpha 2 globulin/total protein ratio by electrophoresis . [facility] Urine appearanceOrdered By: Jesus Ayala on 08-02-2024 Appearance (U) Clear Normal Clear [facility] Comment on above: Order Comment: Name Collection Type:: Clean-Voided Midstream Performed By: #### U PE RAND, CAMILLA,URINE, ALDOLASE, SPE, CAMILLA SERUM #### [facility] , #### ADDONUAPLUS, T4F, ESR, CMP, CK, CBC, CRP, TSH3 #### [address] Urine bacteria detection by automated methodOrdered By: Jesus Ayala on 08-02-2024 Bacteria Auto Ql (U) Bacteria [Presence] in Urine by Automated None Seen [facility] Urine beta globulin measurem ent by electrophoresis (mass/volume)Ordered By: Jesus Ayala on 08-02-2024 Beta globulin Elph (U) [Mass/Vol] Urine beta globulin measurement by electrophoresis (mass/volume) . [facility] Urine protein measurement (m ass/volume)Ordered By: Jesus Ayala on 08-02-2024 Protein (U) [Mass/Vol] Protein [Mass/vol ume] in Urine Not Estab. [facility] Urobilinogen Test strip (U) [Mass/Vol]Ordered By: Jesus Ayala on 08-02-2024 Urobilinogen (U) [Mass/Vol] Normal mg/dL Normal [facility] Urobilinogen (U) [Mass/Vol] Urobilinogen [Mass/volume] in Urine by Test strip Normal [facility] WBC Auto (Bld) [#/Vol]Ordere d By: Jesus Ayala on 08-02-2024 WBC (Bld) [#/Vol] Leukocytes [#/volume ] in Blood by Automated count 3.8-11.6 [facility] XR chest 2V*on 08-02-2024 XR chest 2V* [facility] Main [place] [id number] XRay Report Signed Patient: Mandeep Puri MR#: [id number] 15 : 1975 Acct:[id number] Age/Sex: 48 / F ADM Date: 08/02/24 Loc: XD Room: Type: [facility] Attending Dr: Jesus Ayala MD Copies [...] Trupti Adorno M.D.08/02/2024 4:18 PM Dictation Location: [place] [address] Transcribed By: SALMA 08/02/241617 Dictated By: Trupti Adorno MD 08/02/241616 Signed By: 08/02/24 1618 Normal [facility] pH Test strip (U)Ordered By: Jesus Ayala on 08-02-2024 pH (U) pH of Urine by Test strip 5.0-9.0 [facility] pH of Urine by Test stripOrd ered By: Jesus Ayala on 08-02-2024 pH (U) 7.0 [pH] Normal 5.0-9.0 [facility] Comment on above: Order Comment: Name Collection Type:: Clean-Voided Midstream Performed By: #### U PE RAND, CAMILLA,URINE, ALDOLASE, SPE, CAMILLA SERUM #### [facility] , #### ADDONUAPLUS, T4F, ESR, CMP, CK, CBC, CRP, TSH3 #### [facility] [address] [place] [id number] [facility] ALL CBC WITH AUTO DIFFon BASOPHILS ABSOLUTE AUTO 0 N [facility] Basophils/100 WBC (Bld) 0.5 % 0.2 - 2.0 % [facility] Eosinophils/100 WBC (Bld) 2.9 % 0.9 - 7.0 % [facility] Erythrocyte distribution width (RBC) [Ratio] 14.4 % 11.0 - 15.0 % [facility] Hematocrit (Bld) [Volume fraction] 35.2 % Low 36.0 - 48.0 % [facility] Hemoglobin (Bld) [Mass/Vol] 11.4 g/dL Low 12.0 - 16.0 g/dL [facility] IMMATURE GRANULOCYTES ABS AUTO 0.06 High [facility] Immature granulocytes/100 WBC (Bld) 0.7 % High 0.0 - 0.5 % [facility] Interpretation and review of laboratory results Abnormal [facility] LYMPHOCYTES ABSOLUTE AUTO 1.1 Low [facility] Lymphocytes/100 WBC (Bld) 14 % Low 20.5 - 60.0 % [facility] MCH (RBC) [Entitic mass] 28 pg 26.7 - 34.0 pg [facility] MCHC (RBC) [Mass/Vol] 32.4 g/dL 29.9 - 35.2 g/dL [facility] MCV (RBC) [Entitic vol] 86.5 fL 81.0 - 99.0 fL [facility] MONOCYTES ABSOLUTE AUTO 0.4 N [facility] Monocytes/100 WBC (Bld) 5 % 1.7 - 12.0 % [facility] NEUTROPHILS ABSOLUTE AUTO 6.3 [facility] Neutrophils/100 WBC (Bld) 76.9 % High 43.0 - 75.0 % [facility] Platelet mean volume (Bld) [Entitic vol] 8.3 fL Low 9.5 - 13.5 fL [facility] TBH EO # 0.2 [facility]H PLT 362 [facility] TB RBC 4.07 Low [facility] TB WBC 8.2 [facility] Follow-Upon 07-07-2024 Follow-Up [id number] Antonio Puri i 1975 F Date Provider Department Center 07/07/2024 Shey-SREE [facility] Second Fl Family History Problem Relation Age of Onset Fibromyalgia Mother Heart disease Father Hypertension Sister Polycystic kidney disease Sister Hypertension Brother Polycystic kidney disease Brother Family Status - Relation Status Age at Mother Father Sister Brother Level of Service:29190 UT OFFICE/OUTPATIENT ESTABLISHED LOW MDM 20 MIN Reason for Visit and Comments: UTI [[id number]] - CT results Normal [facility] URINE CULTURE, ROUTINEon Bacteria identified Cx Nom (U) ESCHERICHIA COLI Abnormal [facility] Comment on above: Result Comment: >100 ,000 CFU/Ml Escherichia coli Susceptibility to Follow Performed By: #### L [id number] #### [facility] ([facility]) [address] [place] [address] CT [facility] ABDOMEN PELVIS WO IV CONTRAST [...] kidney with innumerable circumscribed lesions within the [place] kidneys, many which are simple cysts, others [...] Epperson MD. Not Vldtd Invalid Interpretation Code [facility] ALL CBC WITH AUTO DIFFon BASOPHILS ABSOLUTE AUTO 0.0 N [facility] Basophils/100 WBC (Bld) 0.4 % 0.2 - 2.0 % [facility] Eosinophils/100 WBC (Bld) 2.4 % 0.9 - 7.0 % [facility] Erythrocyte distribution width (RBC) [Ratio] 15.5 % High 11.0 - 15.0 % [facility] Hematocrit (Bld) [Volume fraction] 37.7 % 36.0 - 48.0 % [facility] Hemoglobin (Bld) [Mass/Vol] 11.9 g/dL Low 12.0 - 16.0 g/dL [facility] IMMATURE GRANULOCYTES ABS AUTO 0.03 [facility] Immature granulocytes/100 WBC (Bld) 0.4 % 0.0 - 0.5 % [facility] Interpretation and review of laboratory results Abnormal [facility] LYMPHOCYTES ABSOLUTE AUTO 1.1 Low [facility] Lymphocytes/100 WBC (Bld) 14.8 % Low 20.5 - 60.0 % [facility] MCH (RBC) [Entitic mass] 27.9 pg 26.7 - 34.0 pg [facility] MCHC (RBC) [Mass/Vol] 31.6 g/dL 29.9 - 35.2 g/dL [facility] MCV (RBC) [Entitic vol] 88.3 fL 81.0 - 99.0 fL [facility] MONOCYTES ABSOLUTE AUTO 0.4 N [facility] Monocytes/100 WBC (Bld) 5.1 % 1.7 - 12.0 % [facility] NEUTROPHILS ABSOLUTE AUTO 5.7 [facility] Neutrophils/100 WBC (Bld) 76.9 % High 43.0 - 75.0 % [facility] Platelet mean volume (Bld) [Entitic vol] 8.6 fL Low 9.5 - 13.5 fL [facility] TBH EO # 0.2 [facility]H PLT 333 [facility] TB RBC 4.27 [facility] TBH WBC 7.5 [facility] Orders Onlyon 06-15-2024 Orders Only [id number] Antonio Puri i 1975 F Date Provider Department Center 06/15/2024 [id number] TXP None Family History Problem Relation Age of Onset Fibromyalgia Mother Heart disease Father Hypertension Sister Polycystic kidney disease Sister Hypertension Brother Polycystic kidney disease Brother Family Status - Relation Status Age at Mother Father Sister Brother Normal [facility] ALL CBC WITH AUTO DIFFon BASOPHILS ABSOLUTE AUTO 0.0 N [facility] Basophils/100 WBC (Bld) 0.5 % 0.2 - 2.0 % [facility] Eosinophils/100 WBC (Bld) 3.0 % 0.9 - 7.0 % [facility] Erythrocyte distribution width (RBC) [Ratio] 15.9 % High 11.0 - 15.0 % [facility] Hematocrit (Bld) [Volume fraction] 36.3 % 36.0 - 48.0 % [facility] Hemoglobin (Bld) [Mass/Vol] 11.8 g/dL Low 12.0 - 16.0 g/dL [facility] IMMATURE GRANULOCYTES ABS AUTO 0.04 High [facility] Immature granulocytes/100 WBC (Bld) 0.5 % 0.0 - 0.5 % [facility] Interpretation and review of laboratory results Abnormal [facility] LYMPHOCYTES ABSOLUTE AUTO 1.2 [facility] Lymphocytes/100 WBC (Bld) 14.0 % Low 20.5 - 60.0 % [facility] MCH (RBC) [Entitic mass] 28.0 pg 26.7 - 34.0 pg [facility] MCHC (RBC) [Mass/Vol] 32.5 g/dL 29.9 - 35.2 g/dL [facility] MCV (RBC) [Entitic vol] 86.0 fL 81.0 - 99.0 fL [facility] MONOCYTES ABSOLUTE AUTO 0.5 N [facility] Monocytes/100 WBC (Bld) 5.7 % 1.7 - 12.0 % [facility] NEUTROPHILS ABSOLUTE AUTO 6.4 [facility] Neutrophils/100 WBC (Bld) 76.3 % High 43.0 - 75.0 % [facility] Platelet mean volume (Bld) [Entitic vol] 8.6 fL Low 9.5 - 13.5 fL [facility] TBH EO # 0.3 [facility]H PLT 331 [facility] TB RBC 4.22 [facility] TB WBC 8.4 [facility] Consulton 05-19-2024 Consult [id number] Antonio Puri i 1975 F Date Provider Department Center 05/19/2024 Shey-SREE BLAN[facility] Second Fl Family History Problem Relation Age of Onset Fibromyalgia Mother Heart disease Father Hypertension Sister Polycystic kidney disease Sister Hypertension Brother Polycystic kidney disease Brother Family Status - Relation Status Age at Mother Father Sister Brother Level of Service:07733 UT OFFICE/OUTPATIENT ESTABLISHED MOD MDM 30 MIN Reason for Visit and Comments: UTI [[id number]] - Recurrent chronic ecoli , has fibromyalgia and when that flairs up the UTI happens Normal [facility] CREATININE, URINE, RANDOMon 04-27-2024 Creatinine (U) [Mass/Vol] 142.0 mg/dL Normal 26-299 [facility] Comment on above: Performed By: #### L [id number] ####[facility] ([facility])[address] [place] [address] Follow-Upon 04-27-2024 Follow-Up [id number] Antonio Puri i 1975 F Date Provider Department Center 04/27/2024 124-MUNIRA PHAN None Family History Problem Relation Age of Onset Fibromyalgia Mother Heart disease Father Hypertension Sister Polycystic kidney disease Sister Hypertension Brother Polycystic kidney disease Brother Family Status - Relation Status Age at Mother Father Sister Brother Level of Service:05480 UT OFFICE/OUTPATIENT ESTABLISHED MOD MDM 30 MIN Reason [...] mg because they are smaller pills. Normal [facility] PROTEIN, URINE, RANDOMon Protein (U) [Mass/Vol] 51.7 mg/dL [facility] Comment on above: Result Comment: Ther e are no established reference values for random urine specimens. Performed By: #### L [id number] #### [facility] ([facility] [address] [place] [address] URINALYSISon 04-27-2024 BILIRUBIN, TOTAL PRESENCE IN URINE Negative Normal Negative [facility] Comment on above: Performed By: #### L [id number] #### [facility] ([facility] [address] [place] [address] Clarity (U) Slightly Cloudy Abnormal Clear [facility] Comment on above: Performed By: #### L [id number] #### [facility] ([facility]) [address] [place] [address] Color (U) Yellow Normal Yellow [facility] Comment on above: Performed By: #### L [id number] #### [facility] ([facility]) [address] [place] [address] Glucose (U) [Mass/Vol] Negative Normal [facility] Comment on above: Performed By: #### L [id number] #### [facility] ([facility]) [address] [place] [address] HEMOGLOBIN PRESENCE IN URINE Small Abnormal Negative [facility] Comment on above: Performed By: #### L [id number] #### [facility] ([facility]) [address] [place] [address] Ketones Ql (U) Negative Normal Negative [facility] Comment on above: Performed By: #### L [id number] #### [facility] ([facility]) [address] [place] [address] LEUKOCYTE ESTERASE PRESENCE IN URINE BY TEST STRIP Large Abnormal Negative [facility] Comment on above: Performed By: #### L [id number] #### [facility] ([facility]) [address] [place] [address] NITRITE PRESENCE IN URINE Positive Abnormal Negative [facility] Comment on above: Performed By: #### L [id number] #### [facility] ([facility]) [address] [place] [address] pH (U) 6.0 [pH] Normal 5.0-8.0 [facility] Comment on above: Performed By: #### L [id number] #### [facility] ([facility]) [address] [place] [address] Protein (U) [Mass/Vol] 100 mg/dL Abnormal Negative [facility] Comment on above: Performed By: #### L [id number] #### [facility] ([facility]) [address] [place] [address] Specific gravity (U) [Rel density] 1.012 Low 1.015-1.020 [facility] Comment on above: Performed By: #### L [id number] #### [facility] ([facility]) [address] [place] [address] URINALYSIS MICROSCOPICon CASTS IN URINE Normal [facility] Comment on above: Performed By: #### L [id number] #### [facility] ([facility]) [address] [place] [address] CRYSTALS IN URINE Normal [facility] Comment on above: Performed By: #### L [id number] #### [facility] ([facility]) [address] [place] [address] MUCUS (#/HPF) IN URINE SEDIMENT Occasional Normal None Seen, Occasional, Few [facility] Comment on above: Performed By: #### L [id number] #### [facility] ([facility]) [address] [place] [address] RBC (#/HPF) IN URINE SEDIMENT 11-20 Abnormal None Seen [facility] Comment on above: Performed By: #### L [id number] #### [facility] ([facility]) [address] [place] [address] SQUAMOUS EPITHELIAL CELLS (#/HPF) IN URINE SEDIMENT Moderate Abnormal None Seen, Occasional [facility] Comment on above: Performed By: #### L [id number] #### [facility] ([facility]) [address] [place] [address] WBC (LEUKOCYTE) (#/HPF) IN URINE SEDIMENT >100 Abnormal None Seen [facility] Comment on above: Performed By: #### L [id number] #### [facility] ([facility]) [address] [place] [address] URINE CULTURE, ROUTINEon Bacteria identified Cx Nom (U) ESCHERICHIA COLI Abnormal [facility] Comment on above: Result Comment: >100 ,000 CFU/Ml Escherichia coli Susceptibility to Follow Performed By: #### L [id number] ####[facility] ([facility])[address] [place] [address] BILIRUBIN, DIRECTon 04-23-20 Magnesium [Mass/Vol] 0.0 mg/dL Normal 0-0.2 [facility] Comment on above: Performed By: #### L [id number] #### [facility] ([facility]) [address] [place] [address] CBC WITH AUTO DIFFERENTIALon 04-23-2024 Basophils (Bld) [#/Vol] 0.05 10*3/uL Normal 0.00-0.20 [facility] Comment on above: Performed By: #### L [id number] #### [facility] ([facility]) [address] [place] [address] Basophils/100 WBC (Bld) 0.6 % Normal 0.0-1.0 [facility] Comment on above: Performed By: #### L [id number] #### [facility] ([facility]) [address] [place] [address] Eosinophils (Bld) [#/Vol] 0.17 10*3/uL Normal 0.00-0.50 [facility] Comment on above: Performed By: #### L [id number] #### [facility] ([facility]) [address] [place] [address] Eosinophils/100 WBC (Bld) 1.9 % Normal 0.0-6.0 [facility] Comment on above: Performed By: #### L [id number] #### [facility] ([facility]) [address] [place] [address] Erythrocyte distribution width (RBC) [Ratio] 15.7 % High 11.5-15.0 [facility] Comment on above: Performed By: #### L [id number] #### [facility] ([facility]) [address] [place] [address] ERYTHROCYTE MEAN CORPUSCULAR HEMOGLOBIN CONCENTRATION (G/DL) BY AUTOMATED 32.7 g/dL Normal 32.0-35.0 [facility] Comment on above: Performed By: #### L [id number] #### [facility] ([facility]) [address] [place] [address] Hematocrit (Bld) [Volume fraction] 39.2 % Normal 36.0-48.0 [facility] Comment on above: Performed By: #### L [id number] #### [facility] ([facility]) [address] [address] Hemoglobin (Bld) [Mass/Vol] 12.8 g/dL Normal 12.0-15.0 [facility] Comment on above: Performed By: #### L [id number] #### [facility] ([facility]) [address] [place] [address] Immature granulocytes (Bld) [#/Vol] 0.06 10*3/uL Normal 0.00-0.20 [facility] Comment on above: Performed By: #### L [id number] #### [facility] ([facility]) [address] [place] [address] Immature granulocytes/100 WBC (Bld) 0.7 % Normal 0.0-1.0 [facility] Comment on above: Performed By: #### L [id number] #### [facility] ([facility]) [address] [address] Lymphocytes (Bld) [#/Vol] 1.27 10*3/uL Normal 1.20-4.00 [facility] Comment on above: Performed By: #### L [id number] #### [facility] ([facility]) [address] [place] [address] Lymphocytes/100 WBC (Bld) 14.5 % Low 20.0-45.0 [facility] Comment on above: Performed By: #### L [id number] #### [facility] ([facility]) [address] [place] [address] MCH (RBC) [Entitic mass] 27.7 pg Normal 27.0-33.0 [facility] Comment on above: Performed By: #### L [id number] #### [facility] ([facility]) [address] [place] [address] MCV (RBC) [Entitic vol] 84.8 fL Normal 82.0-98.0 [facility] Comment on above: Performed By: #### L [id number] #### [facility] ([facility]) [address] [place] [address] Monocytes (Bld) [#/Vol] 0.40 10*3/uL Normal 0.10-1.00 [facility] Comment on above: Performed By: #### L [id number] #### [facility] ([facility]) [address] [address] Monocytes/100 WBC (Bld) 4.6 % Low 5.0-12.0 [facility] Comment on above: Performed By: #### L [id number] #### [facility] ([facility]) [address] [place] [address] Neutrophils (Bld) [#/Vol] 6.82 10*3/uL Normal 1.60-7.60 [facility] Comment on above: Performed By: #### L [id number] #### [facility] ([facility]) [address] [place] [address] Neutrophils/100 WBC (Bld) 77.7 % High 40.0-72.0 [facility] Comment on above: Performed By: #### L [id number] #### [facility] ([facility]) [address] [place] [address] NRBC (PER 100 WBCS) BY AUTOMATED COUNT 0.0 % Normal 0 [facility] Comment on above: Performed By: #### L [id number] #### [facility] ([facility]) [address] [place] [address] PLATELETS (10*3/UL) IN BLOOD AUTOMATED COUNT 337 10*3/uL Normal 150-400 [facility] Comment on above: Performed By: #### L [id number] #### [facility] ([facility]) [address] [place] [address] RBC (Bld) [#/Vol] 4.62 10*6/uL Normal 3.80-5.00 [facility] Comment on above: Performed By: #### L [id number] #### [facility] ([facility]) [address] [place] [address] WBC (Bld) [#/Vol] 8.77 10*3/uL Normal 4.00-10.60 [facility] Comment on above: Performed By: #### L [id number] #### [facility] ([facility]) [address] [place] [address] COMPREHENSIVE METABOLIC PANE Jonathan 04-23-2024 Albumin [Mass/Vol] 4.4 g/dL Normal 3.5-5.7 [facility] Comment on above: Performed By: #### L [id number] #### [facility] ([facility]) [address] [place] [address] ALP [Catalytic activity/Vol] 74 U/L Normal 34-104 [facility] Comment on above: Performed By: #### L [id number] #### [facility] ([facility]) [address] [place] [address] ALT [Catalytic activity/Vol] 9 U/L Normal 7-52 [facility] Comment on above: Performed By: #### L [id number] #### [facility] ([facility]) [address] [place] [address] Anion gap [Moles/Vol] 13 mmol/L Normal 7-20 [facility] Comment on above: Performed By: #### L [id number] #### [facility] ([facility]) [address] [place] [address] AST [Catalytic activity/Vol] 14 U/L Normal 13-39 [facility] Comment on above: Performed By: #### L [id number] #### [facility] ([facility]) [address] [place] [address] Bilirubin [Mass/Vol] 0.4 mg/dL Normal 0.3-1.0 [facility] Comment on above: Performed By: #### L [id number] #### [facility] ([facility]) [address] [place] [address] Calcium [Mass/Vol] 9.4 mg/dL Normal 8.6-10.3 [facility] Comment on above: Performed By: #### L [id number] #### [facility] ([facility]) [address] [place] [address] Chloride [Moles/Vol] 104 mmol/L Normal 98-107 [facility] Comment on above: Performed By: #### L [id number] #### [facility] ([facility]) [address] [place] [address] CO2 [Moles/Vol] 25 mmol/L Normal 21-31 [facility] Comment on above: Performed By: #### L [id number] #### [facility] ([facility]) [address] [place] [address] Creatinine [Mass/Vol] 1.09 mg/dL Normal 0.60-1.20 [facility] Comment on above: Performed By: #### L [id number] #### [facility] ([facility]) [address] [place] [address] GLOMERULAR FILTRATION RATE ML/MIN/1.73 SQ M.PREDICTED 62.7 mL/min/1.73m*2 Normal >60.0 [facility] Comment on above: Result Comment: [facility]???s estimated glomerular filtration rate (eGFR) will [...] individuals. Performed By: #### L [id number] #### [facility] ([facility]) [address] [place] [address] Glucose [Mass/Vol] 108 mg/dL High 70-100 [facility] Comment on above: Performed By: #### L [id number] #### [facility] ([facility]) [address] [place] [address] Potassium [Moles/Vol] 3.5 mmol/L Normal 3.5-5.1 [facility] Comment on above: Performed By: #### L [id number] #### [facility] ([facility]) [address] [place] [address] Protein [Mass/Vol] 7.6 g/dL Normal 6.0-8.3 [facility] Comment on above: Performed By: #### L [id number] #### [facility] ([facility]) [address] [place] [address] Sodium [Moles/Vol] 138 mmol/L Normal 136-145 [facility] Comment on above: Performed By: #### L [id number] #### [facility] [address] [place] [address] Urea nitrogen [Mass/Vol] 13 mg/dL Normal 7-25 [facility] Comment on above: Performed By: #### L [id number] #### [facility]) [address] [place] [address] UREA NITROGEN/CREATININE (MASS RATIO) IN SER/PLAS 11.9 Normal [facility] Comment on above: Performed By: #### L [id number] #### [facility] ([facility]) [address] [place] [address] HEMOGLOBIN A1Con 04-23-2024 Glucose [Mass/Vol] 105 mg/dL Normal [facility] Comment on above: Performed By: #### L [id number] #### [facility] ([facility]) [address] [facility] [address] HbA1c (Bld) [Mass fraction] 5.3 % Normal 4.0-6.0 [facility] Comment on above: Performed By: #### L [id number] #### [facility] ([facility]) [address] [facility] [place] [address] LIPID PANELon 04-23-2024 CHOL/HDL 4.0 mg/dL Normal [facility] Comment on above: Performed By: #### L [id number] #### [facility] ([facility]) [address] [place] [address] Cholesterol [Mass/Vol] 182 mg/dL Normal 120-200 [facility] Comment on above: Performed By: #### L [id number] #### [facility] ([facility]) [address] [place] [address] Magnesium [Mass/Vol] 166 mg/dL High 40-149 [facility] Comment on above: Result Comment: TRIG LYCERIDE REFERENCE RANGE: 20 YEARS AND OLDER CARDIOVASCULAR RISK LESS THAN 150 mg/dL LOW RISK 150 TO 199 mg/dL BORDERLINE RISK 200 mg/dL AND GREATER HIGH RISK Performed By: #### L [id number] #### [facility] ([facility]) [address] [facility] [place] [address] Magnesium [Mass/Vol] 103 mg/dL Normal 0-160 [facility] Comment on above: Performed By: #### L [id number] #### [facility] ([facility]) [address] [facility] [place] [address] Magnesium [Mass/Vol] 46 mg/dL Normal 23-92 [facility] Comment on above: Performed By: #### L [id number] #### [facility] ([facility]) [address] [place] [address] NON HDL CHOL. (LDL+VLDL) 136 Normal [facility] Comment on above: Performed By: #### L [id number] #### [facility] ([facility]) [address] [place] [address] TOTAL VLDL-C 33 mg/dL Normal 0-40 [facility] Comment on above: Performed By: #### L [id number] #### [facility]) [address] [facility] [place] [place] [address] Labon 04-23-2024 Lab [id number] Antonio Puri i 1975 F Date Provider Department Center 04/23/2024 2245-[facility] LAB RESOURCE [facility] Family History Problem Relation Age of Onset Fibromyalgia Mother Heart disease Father Hypertension Sister Polycystic kidney disease Sister Hypertension Brother Polycystic kidney disease Brother Family Status - Relation Status Age at Mother Father Sister Brother Normal [facility] MAGNESIUMon 04-23-2024 Magnesium [Mass/Vol] 1.8 mg/dL Low 1.9-2.7 [facility] Comment on above: Performed By: #### L [id number] #### [facility] ([facility]) [address] [place] [address] PHOSPHORUSon 04-23-2024 Magnesium [Mass/Vol] 2.8 mg/dL Normal 2.5-5.0 [facility] Comment on above: Performed By: #### L [id number] #### [facility] ([facility]) [address] [facility] [place] [place] [address] TACROLIMUS LEVELon Tacrolimus (Bld) [Mass/Vol] 10.5 ng/mL Normal 5.0-20.0 [facility] Comment on above: Result Comment: The [employer] Tacrolimus assay is a delayed one-step immunoassay for the quantitative determination of tacrolimus in human whole blood using the chemiluminescent microparticle immunoassay (CMIA) technology with flexible assay protocols, referred to as Chemiflex. Performed By: #### L [id number] #### [facility] ([facility]) [address] [place] [address] URIC ACIDon 04-23-2024 Magnesium [Mass/Vol] 4.0 mg/dL Normal 2.3-6.6 [facility] Comment on above: Performed By: #### L [id number] #### [facility] ([facility]) [address] [place] [address] URINALYSISon 04-23-2024 BILIRUBIN, TOTAL PRESENCE IN URINE Negative Normal Negative [facility] Comment on above: Performed By: #### L [id number] #### [facility] ([facility]) [address] [place] [address] Clarity (U) Cloudy Abnormal Clear [facility] Comment on above: Performed By: #### L [id number] #### [facility] ([facility]) [address] [place] [address] Color (U) Yellow Normal Yellow [facility] Comment on above: Performed By: #### L [id number] #### [facility] ([facility]) [address] [place] [address] Glucose (U) [Mass/Vol] Negative Normal Negative Un [facility] Comment on above: Performed By: #### L [id number] #### [facility] ([facility]) [address] [place] [address] HEMOGLOBIN PRESENCE IN URINE Negative Normal Negative [facility] Comment on above: Performed By: #### L [id number] #### [facility] ([facility]) [address] [place] [address] Ketones Ql (U) Negative Normal Negative [facility] Comment on above: Performed By: #### L [id number] #### [facility] ([facility]) [address] [place] [address] LEUKOCYTE ESTERASE PRESENCE IN URINE BY TEST STRIP Negative Normal Negative [facility] Comment on above: Performed By: #### L [id number] #### [facility] ([facility]) [address] [place] [address] NITRITE PRESENCE IN URINE Negative Normal Negative [facility] Comment on above: Performed By: #### L [id number] #### [facility] ([facility]) [address] [place] [address] pH (U) 7.0 [pH] Normal 5.0-8.0 [facility] Comment on above: Performed By: #### L [id number] #### [facility] ([facility]) [address] [place] [address] Protein (U) [Mass/Vol] Negative Normal [facility] Comment on above: Performed By: #### L [id number] #### [facility] [facility] ([facility]) [address] [place] [address] Specific gravity (U) [Rel density] 1.011 Low 1.015-1.020 [facility] Comment on above: Performed By: #### L [id number] #### [facility] ([facility]) [address] [place] [address] URINALYSIS MICROSCOPICon AMORPHOUS CRYSTALS (#/HPF) IN URINE Few Abnormal None Seen [facility] Comment on above: Performed By: #### L [id number] #### [facility] ([facility]) [address] [place] [address] CASTS IN URINE Normal [facility] Comment on above: Performed By: #### L [id number] #### [facility] ([facility]) [address] [place] [address] CRYSTALS IN URINE Normal [facility] Comment on above: Performed By: #### L [id number] #### [facility] ([facility]) [address] [place] [address] MUCUS (#/HPF) IN URINE SEDIMENT Occasional Normal None Seen, Occasional, Few [facility] Comment on above: Performed By: #### L [id number] #### [facility] ([facility]) [address] [place] [address] RBC (#/HPF) IN URINE SEDIMENT 3-5 Abnormal None Seen [facility] Comment on above: Performed By: #### L [id number] #### [facility] ([facility]) [address] [place] [address] SQUAMOUS EPITHELIAL CELLS (#/HPF) IN URINE SEDIMENT Many Abnormal None Seen, Occasional [facility] Comment on above: Performed By: #### L [id number] #### [facility] ([facility]) [address] [place] [address] WBC (LEUKOCYTE) (#/HPF) IN URINE SEDIMENT 3-5 Abnormal None Seen [facility] Comment on above: Performed By: #### L [id number] #### [facility] ([facility]) [address] [place] [address] URINE CULTURE, ROUTINEon Bacteria identified Cx Nom (U) <10,000 CFU/ML No Significant Growth Normal [facility] Comment on above: Performed By: #### L [id number] #### [facility] ([facility]) [address] [place] [address] US RENAL COMPLETEon 04-14-20 US RENAL COMPLETE EXAM: Renal Ultrasou nd with Doppler: REASON FOR EXAM: Polycystic kidneys. COMPARISON: None. TECHNIQUE: Real-time ultrasonographic evaluation of the kidneys is performed with color flow Doppler. FINDINGS: There is a transplanted right kidney. Right kidney: Numerous [place] right renal cysts. No hydronephrosis. Left kidney: Numerous [place] left renal cysts. No hydronephrosis. Uniform and [...] report is generated using voice recognition reporting ([employer]). On occasion [employer] erroneously drops words from the report or replaces the spoken word with similar sounding words. Please call with any questions/concerns regarding this report.* Dictated and transcribed 04/14/2024/heriberto This report has been electronically signed and approved by the interpreting radiologist. Electronically Signed René Raymond M.D. 2024-04-14 16:31:56 Normal Not Available Urine Cultureon 03-15-2024 Bacteria identified Cx Nom (U) ORGANISM: Escherichia coli (MDRO) (O:ESCCOLMDRO) [place] Count >100,000 Aerobic CODI Charge (NMIC56) - [...] RESISTANT TO ALL B-LACTAM DRUGS. PERFORMED BY: [place] [address] PATHOLOGIST [employer] ANAHY MCKEE M.D. Normal [facility] Comment on above: Performed By: #### C UU #### [address] Documentationon 03-03-2024 Documentation [id number] Antonio Puri i 1975 F Date Provider Department Center 03/03/2024 750-JOSE RAFAEL GAVIRIA TXP None Family History Problem Relation Age of Onset Fibromyalgia Mother Heart disease Father Hypertension Sister Polycystic kidney disease Sister Hypertension Brother Polycystic kidney disease Brother Family Status - Relation Status Age at Mother Father Sister Brother Normal [facility] Follow-Upon 12-23-2023 Follow-Up [id number] Antonio Puri i 1975 F Date Provider Department Center 12/23/2023 124-MUNIRA PHAN TXP None Family History Problem Relation Age of Onset Fibromyalgia Mother Heart disease Father Hypertension Sister Polycystic kidney disease Sister Hypertension Brother Polycystic kidney disease Brother Family Status - Relation Status Age at Mother Father Sister Brother Level of Service:32499 UT OFFICE/OUTPATIENT ESTABLISHED MOD MDM 30 MIN Reason for Visit and Comments: Kidney Follow-up [] - Pt has questions about her lab work. Normal [facility] PAPITO Antinuclear Antibodieson 11-06-2023 Antinuclear Abs, IFA Negative Normal . [facility] Comment on above: Result Comment: Nega tive <1:80 Borderline 1:80 Positive >1:80 ICAP nomenclature: AC-0 For more information about Hep-2 cell patterns use ANApatterns.org, the official website for the International Consensus on Antinuclear Antibody (PAPITO) Patterns (ICAP). Performed at: - [address] [id number] Band Manager: Gabriel Whitman PhD, Phone: [phone] PERFORMED BY: [place] [address] PATHOLOGIST [employer] ANAHY MCKEE M.D. Performed By: #### C BC, CMP, CK, CRP, ESR ####[facility]#### PAPITO ####[facility] , Alanine aminotransferase [En zymatic activity/volume] in Serum or PlasmaOrdered By: Perri Ceja on 11-06-2023 ALT [Catalytic activity/Vol] 20 U/L Normal 7-52 [facility] Comment on above: Performed By: #### C BC, CMP, CK, CRP, ESR ####[facility] [place] [address] [place]#### PAPITO ####[facility] , Albumin [Mass/volume] in Ser um or Plasma by Bromocresol green (BCG) dye binding methoOrdered By: Perri Ceja on 11-06-2023 Albumin BCG dye [Mass/Vol] 4.7 g/dL 3.5-5.7 [facility] Alkaline phosphatase [Enzyma tic activity/volume] in Serum or PlasmaOrdered By: Perri Ceja on 11-06-2023 ALP [Catalytic activity/Vol] 96 U/L Normal 34-104 [facility] Comment on above: Performed By: #### C BC, CMP, CK, CRP, ESR ####[facility] [place] [address] [place]#### PAPITO ####[facility] , Aspartate aminotransferase [ Enzymatic activity/volume] in Serum or PlasmaOrdered By: Perri Ceja on 11-06-2023 AST [Catalytic activity/Vol] 16 U/L Normal 13-39 [facility] Comment on above: Performed By: #### C BC, CMP, CK, CRP, ESR ####[place] [place] [address] [place]#### PAPITO ####[facility] , Automated basophil %Ordered By: Perri Ceja on 11-06-2023 Basophils/100 WBC (Bld) 0.7 % Normal . [facility] Comment on above: Performed By: #### C BC, CMP, CK, CRP, ESR ####[address]#### PAPITO ####[facility] , Automated basophil countOrde red By: Perri Brenna on 11-06-2023 Basophils (Bld) [#/Vol] 0.1 10*3/uL Normal 0.0-0.2 [facility] Comment on above: Performed By: #### C BC, CMP, CK, CRP, ESR ####[place] [address] [place]#### PAPITO ####[facility] , Automated blood monocyte cou ntOrdered By: Perri Ceja on 11-06-2023 Monocytes (Bld) [#/Vol] 0.6 10*3/uL Normal 0.0-0.8 [facility] Comment on above: Performed By: #### C BC, CMP, CK, CRP, ESR ####[address]#### PAPITO ####[facility] , Automated eosinophil %Ordere d By: Perri Ceja on 11-06-2023 Eosinophils/100 WBC (Bld) 3.0 % Normal . [facility] Comment on above: Performed By: #### C BC, CMP, CK, CRP, ESR ####[address]#### PAPITO ####[facility] , Automated eosinophil countOr dered By: Perri Ceja on 11-06-2023 Eosinophils (Bld) [#/Vol] 0.3 10*3/uL Normal 0.0-0.45 [facility] Comment on above: Performed By: #### C BC, CMP, CK, CRP, ESR ####[place] [address] [place]#### PAPITO ####[facility] , Automated monocyte %Ordered By: Perri Ceja on 11-06-2023 Monocytes/100 WBC (Bld) 6.6 % Normal . [facility] Comment on above: Performed By: #### C BC, CMP, CK, CRP, ESR ####[address] [place] [place] [id number] [place]#### PAPITO ####[facility] , Automated neutrophil %Ordere d By: Perri Ceja on 11-06-2023 Neutrophils/100 WBC (Bld) 72.1 % Normal . [facility] Comment on above: Performed By: #### C BC, CMP, CK, CRP, ESR ####[place] [address] [place]#### PAPITO ####[facility] , Bilirubin.total [Mass/volume ] in Serum or PlasmaOrdered By: Perri Ceja on 11-06-2023 Bilirubin [Mass/Vol] 0.4 mg/dL Normal 0.3-1.0 [facility] Comment on above: Performed By: #### C BC, CMP, CK, CRP, ESR ####[address]#### PAPITO ####[facility] , C reactive protein [Mass/vol ume] in Serum or PlasmaOrdered By: Perri Ceja on 11-06-2023 CRP [Mass/Vol] 2.0 mg/dL 0.0-0.5 [facility] C-Reactive Proteinon 024 C-Reactive Protein 2.0 mg/dL High 0.0-0.5 [facility] Comment on above: Result Comment: PERF ORMED BY: [facility] [address] [place] [address] PATHOLOGIST [employer] ANAHY MCKEE M.D. Performed By: #### C BC, CMP, CK, CRP, ESR ####[place] [id number] [place]#### PAPITO ####[facility] , Calcium [Mass/volume] in Ser um or PlasmaOrdered By: Perri Ceja on 11-06-2023 Calcium [Mass/Vol] 10.3 mg/dL Normal 8.6-10.3 [facility] Comment on above: Performed By: #### C BC, CMP, CK, CRP, ESR ####[address]#### PAPITO ####[facility] , Carbon dioxide, total [Moles /volume] in Serum or PlasmaOrdered By: Perri Ceja on 11-06-2023 CO2 [Moles/Vol] 26.1 mmol/L Normal 21.0-31.0 [facility] Comment on above: Performed By: #### C BC, CMP, CK, CRP, ESR ####[address]#### PAPITO ####[facility] , Chloride [Moles/volume] in S aislinn or PlasmaOrdered By: Perri Ceja on 11-06-2023 Chloride [Moles/Vol] 104 mmol/L Normal 98-107 [facility] Comment on above: Performed By: #### C BC, CMP, CK, CRP, ESR ####[place] [address] [place]#### PAPITO ####[facility] , Complete Blood Count Auto Di ffon 11-06-2023 Mean Corpuscular HGB Conc 33.6 g/dL Normal 32.0-35.0 [facility] Comment on above: Performed By: #### C BC, CMP, CK, CRP, ESR ####[place] [address] [place]#### PAPITO ####[facility] , NRBC% 0.1 /100{WBC} Normal 0-0.5 [facility] Comment on above: Performed By: #### C BC, CMP, CK, CRP, ESR ####[place] [address] [place]#### PAPITO ####[facility] , Comprehensive Metabolic Pane jonathan 11-06-2023 Albumin [Mass/Vol] 4.7 g/dL Normal 3.5-5.7 [facility] Comment on above: Performed By: #### C BC, CMP, CK, CRP, ESR ####[place] [address]#### PAPITO ####[facility] , GFR/1.73 sq M.predicted MDRD (S/P/Bld) [Vol rate/Area] 57.919 mL/min/{1.73_m2} Normal [facility] Comment on above: Performed By: #### C BC, CMP, CK, CRP, ESR ####[address]#### PAPITO ####[facility] , Creatine kinase [Enzymatic a ctivity/volume] in Serum or PlasmaOrdered By: Perri Ceja on 11-06-2023 CK [Catalytic activity/Vol] 30 U/L Normal 30-223 [facility] Comment on above: Result Comment: PERF ORMED BY: [facility] [address] [place] [address] PATHOLOGIST [employer] ANAHY MCKEE M.D. Performed By: #### C BC, CMP, CK, CRP, ESR ####[address]#### PAPITO ####[facility] , Creatinine [Mass/volume] in Serum or PlasmaOrdered By: Perri Ceja on 11-06-2023 Creatinine [Mass/Vol] 1.17 mg/dL Normal 0.60-1.20 [facility] Comment on above: Performed By: #### C BC, CMP, CK, CRP, ESR ####[address]#### PAPITO ####[facility] , Erythrocyte Sedimentation Ra mathieu 11-06-2023 ESR (Bld) [Velocity] 49 mm/h High 0-19 [facility] Comment on above: Result Comment: PERF ORMED BY: [facility] [address] [place] [address] PATHOLOGIST [employer] ANAHY MCKEE M.D. Performed By: #### C BC, CMP, CK, CRP, ESR ####[address]#### PAPITO ####[facility] , Erythrocyte distribution wid th [Ratio] by Automated countOrdered By: Perri Ceja on 11-06-2023 Erythrocyte distribution width (RBC) [Ratio] 15.3 % Normal 11.9-15.3 [facility] Comment on above: Performed By: #### C BC, CMP, CK, CRP, ESR ####[address]#### PAPITO ####[facility] , Erythrocyte sedimentation ra te by Photometric methodOrdered By: Perri Ceja on 11-06-2023 ESR Photometric method (Bld) [Velocity] 49 mm/hr 0-19 [facility] Erythrocytes [#/volume] in B lood by Automated countOrdered By: Perri Ceja on 11-06-2023 RBC (Bld) [#/Vol] 4.60 10*6/uL Normal 3.60-5.00 [facility] Comment on above: Performed By: #### C BC, CMP, CK, CRP, ESR ####[address]#### PAPITO ####[facility] , Glucose [Mass/volume] in Ser um or PlasmaOrdered By: Perri Ceja on 11-06-2023 Glucose [Mass/Vol] 91 mg/dL Normal 70-100 [facility] Comment on above: ADA recommended [...] #### C BC, CMP, CK, CRP, ESR ####[address]#### PAPITO ####[facility] , Hematocrit [Volume Fraction] of Blood by Automated countOrdered By: Perri Ceja on 11-06-2023 Hematocrit (Bld) [Volume fraction] 38.9 % Normal 34.0-46.4 [facility] Comment on above: Performed By: #### C BC, CMP, CK, CRP, ESR ####[address]#### PAPITO ####[facility] , Hemoglobin [Mass/volume] in BloodOrdered By: Perri Ceja on 11-06-2023 Hemoglobin (Bld) [Mass/Vol] 13.1 g/dL Normal 11.8-15.4 [facility] Comment on above: Performed By: #### C BC, CMP, CK, CRP, ESR ####[address]#### PAPITO ####[facility] , Leukocytes [#/volume] correc noah for nucleated erythrocytes in Blood by Automated counOrdered By: Perri Ceja on 11-06-2023 WBC corrected for nucl RBC Auto (Bld) [#/Vol] 8.8 10*3/uL 3.8-11.6 [facility] Leukocytes [#/volume] in Blo od by Automated countOrdered By: Perri Ceja on 11-06-2023 WBC (Bld) [#/Vol] 8.8 10*3/uL Normal 3.8-11.6 [facility] Comment on above: Performed By: #### C BC, CMP, CK, CRP, ESR ####[place] [address] [place]#### PAPITO ####[facility] , Lymphocytes [#/volume] in Bl ood by Automated countOrdered By: Perri Ceja on 11-06-2023 Lymphocytes (Bld) [#/Vol] 1.5 10*3/uL Normal 1.00-4.8 [facility] Comment on above: Performed By: #### C BC, CMP, CK, CRP, ESR ####[address]#### PAPITO ####[facility] , Lymphocytes/100 leukocytes i n Blood by Automated countOrdered By: Perri Ceja on 11-06-2023 Lymphocytes/100 WBC (Bld) 17.6 % Normal . [facility] Comment on above: Performed By: #### C BC, CMP, CK, CRP, ESR ####[address]#### PAPITO ####[facility] , MCH [Entitic mass] by Automa noah countOrdered By: Perri Ceja on 11-06-2023 MCH (RBC) [Entitic mass] 28.4 pg Normal 24.7-34.3 [facility] Comment on above: Performed By: #### C BC, CMP, CK, CRP, ESR ####[address]#### PAPITO ####[facility] , MCHC Auto (RBC) [Mass/Vol]Or dered By: Perri Ceja on 11-06-2023 MCHC (RBC) [Mass/Vol] 33.6 g/dL 32.0-35.0 [facility] MCV [Entitic volume] by Auto mated countOrdered By: Perri Ceja on 11-06-2023 MCV (RBC) [Entitic vol] 84.6 fL Normal 80-100 [facility] Comment on above: Performed By: #### C BC, CMP, CK, CRP, ESR ####[address] [place] [address] [place]#### PAPITO ####[facility] , Neutrophils [#/volume] in Bl ood by Automated countOrdered By: Perri Ceja on 11-06-2023 Neutrophils (Bld) [#/Vol] 6.3 10*3/uL Normal 1.8-7.7 [facility] Comment on above: Performed By: #### C BC, CMP, CK, CRP, ESR ####[address]#### PAPITO ####[facility] , No Panel InformationOrdered By: Perri Ceja on 11-06-2023 Estimated GFR (CKD-EPI) 57.919 mL/Min [facility] Creatinine Clearance (Chem N/A [facility] Nucleated erythrocytes [Pres ence] in Blood by Automated countOrdered By: Perri Ceja on 11-06-2023 Nucleated RBC Auto Ql (Bld) 0.1 /100{WBC} 0-0.5 [facility] Platelet mean volume [Entiti c volume] in Blood by Automated countOrdered By: Perri Ceja on 11-06-2023 Platelet mean volume (Bld) [Entitic vol] 6.9 fL Normal 6.3-10.7 [facility] Comment on above: Performed By: #### C BC, CMP, CK, CRP, ESR ####[address]#### PAPITO ####[facility] , Platelets [#/volume] in Bloo d by Automated countOrdered By: Perri Ceja on 11-06-2023 Platelets (Bld) [#/Vol] 393 10*3/uL Normal 150-450 [facility] Comment on above: Performed By: #### C BC, CMP, CK, CRP, ESR ####[address]#### PAPITO ####[facility] , Potassium [Moles/volume] in Serum or PlasmaOrdered By: Perri Ceja on 11-06-2023 Potassium [Moles/Vol] 3.8 mmol/L Normal 3.5-5.1 [facility] Comment on above: Performed By: #### C BC, CMP, CK, CRP, ESR ####[address]#### PAPITO ####[facility] , Protein [Mass/volume] in Ser um or PlasmaOrdered By: Perri Ceja on 11-06-2023 Protein [Mass/Vol] 7.7 g/dL Normal 6.4-8.9 [facility] Comment on above: Performed By: #### C BC, CMP, CK, CRP, ESR ####[address]#### PAPITO ####[facility] , Serum globulin measurement b y calculation (mass/volume)Ordered By: Perri Ceja on 11-06-2023 Globulin (S) [Mass/Vol] 3.0 g/dL Normal [facility] Comment on above: Performed By: #### C BC, CMP, CK, CRP, ESR ####[address]#### PAPITO ####[facility] , Serum or plasma albumin/glob ulin mass ratioOrdered By: Perri Ceja on 11-06-2023 Albumin/Globulin [Mass ratio] 1.6 {ratio} Normal [facility] Comment on above: Performed By: #### C BC, CMP, CK, CRP, ESR ####[place] [address] [place]#### PAPITO ####[facility] , Serum or plasma anion gap de terminationOrdered By: Perri Ceja on 11-06-2023 Anion gap [Moles/Vol] 12.7 mmol/L Normal 6.0-15.0 [facility] Comment on above: Performed By: #### C BC, CMP, CK, CRP, ESR ####[facility] [place] [id number] [place]#### PAPITO ####[facility] , Sodium [Moles/volume] in Ser um or PlasmaOrdered By: Perri Ceja on 11-06-2023 Sodium [Moles/Vol] 139 mmol/L Normal 136-145 [facility] Comment on above: Performed By: #### C BC, CMP, CK, CRP, ESR ####[facility] [place] [id number] [place]#### PAPITO ####[facility] , Urea nitrogen [Mass/volume] in Serum or PlasmaOrdered By: Perri Ceja on 11-06-2023 Urea nitrogen [Mass/Vol] 17 mg/dL Normal 7-25 [facility] Comment on above: Performed By: #### C BC, CMP, CK, CRP, ESR ####[facility] [place] [address] [place]#### PAPITO ####[facility] , PTH INTACTon 07-30-2022 PTH, Intact 107 pg/mL Critically high 15-65 [facility] Comment on above: Performed By: #### M G, URIC, RENAL #### [facility] [address] [place] [address] [address] Hari Palmer FERRITINon 07-29-2022 Ferritin [Mass/Vol] 194.0 ng/mL Critically high 6.2-137.0 [facility] Comment on above: Performed By: #### M G, URIC, RENAL #### [facility] [address] [address] [address] Hari Palmer HEMOGRAM AND PLATELon 2021 Hematocrit (Bld) [Volume fraction] 32.8 % Critically low 36.0-48.0 [facility] Comment on above: Performed By: #### M G, URIC, RENAL #### [facility] [address] [address] [address] Hari Palmer Hemoglobin (Bld) [Mass/Vol] 10.8 g/dL Critically low 12.0-16.0 [facility] Comment on above: Performed By: #### M G, URIC, RENAL #### [facility] [address] [place] [address] Dr. Hari Palmer MCH (RBC) [Entitic mass] 31.7 pg Normal 26.7-34.0 [facility] Comment on above: Performed By: #### M G, URIC, RENAL #### [facility] [address] [place] [address] Dr. Hari Palmer MCHC (RBC) [Mass/Vol] 32.9 g/dL Normal 29.9-35.2 [facility] Comment on above: Performed By: #### M G, URIC, RENAL #### [facility] [address] [place] [address] Dr. Hari Palmer MCV (RBC) [Entitic vol] 96.2 fL Normal 81.0-99.0 [facility] Comment on above: Performed By: #### M G, URIC, RENAL #### [facility] [address] [place] [address] Dr. Hari Palmer PLT 297 103/ul Normal 150-450 [facility] Comment on above: Performed By: #### M G, URIC, RENAL #### [facility] [address] [place] [address] Dr. Hair Palmer RBC 3.41 106/ul Critically low 4.20-5.40 [facility] Comment on above: Performed By: #### M G, URIC, RENAL #### [facility] [address] [place] [address] Dr. Hari Palmer WBC 7.1 103/ul Normal 4.0-11.0 [facility] Comment on above: Performed By: #### M G, URIC, RENAL #### [facility] [address] [place] [address] Dr. Hari Palmer IRON AND TIBCon 07-29-2022 % SATURATION 19.0 % Normal [facility] Comment on above: Performed By: #### M G, URIC, RENAL #### [facility] [address] [place] [address] Dr. Hari Palmer Iron [Mass/Vol] 48.0 ug/dL Critically low 50.0-170.0 [facility] Comment on above: Performed By: #### M G, URIC, RENAL #### [facility] [address] [place] [address] Dr. Hari Palmer TIBC DIRECT 252.0 ug/dL Normal 250.0-450.0 [facility] Comment on above: Performed By: #### M G, URIC, RENAL #### [facility] [address] [place] [address] Dr. Hari Palmer MAGNESIUMon 07-29-2022 Magnesium [Mass/Vol] 2.0 mg/dL Normal 1.8-2.4 [facility] Comment on above: Performed By: #### M G, URIC, RENAL #### [facility] [address] [place] [address] Dr. Hari Palmer RENAL FUNCTION PANELon 07-29 Albumin [Mass/Vol] 3.6 g/dL Normal 3.4-5.0 [facility] Comment on above: Performed By: #### M G, URIC, RENAL #### [facility] [address] [place] [address] Dr. Hari Palmer Calcium [Mass/Vol] 8.7 mg/dL Normal 8.5-10.1 [facility] Comment on above: Performed By: #### M G, URIC, RENAL #### [facility] [address] [place] [address] Dr. Hari Palmer Chloride [Moles/Vol] 104 mmol/L Normal 98-107 [facility] Comment on above: Performed By: #### M G, URIC, RENAL #### [facility] [address] [place] [address] Dr. Hari Palmer CO2 [Moles/Vol] 21.8 mmol/L Normal 21.0-32.0 [facility] Comment on above: Performed By: #### M G, URIC, RENAL #### [facility] [address] [place] [address] Dr. Hari Palmer Creatinine [Mass/Vol] 3.83 mg/dL Critically high 0.55-1.02 [facility] Comment on above: Performed By: #### M G, URIC, RENAL #### [facility] [address] [place] [address] Dr. Hari Palmer EGFR-AF SCOTTISH 15 mL/min/1.73m2 Critically low >=60 [facility] Comment on above: Performed By: #### M G, URIC, RENAL #### [facility] [address] [place] [address] Dr. Hari Palmer EGFR-NON AF SCOTTISH 13 mL/min/1.73m2 Critically low >=60 [facility] Comment on above: Performed By: #### M G, URIC, RENAL #### [facility] [address] [place] [address] Dr. Hari Palmer Glucose [Mass/Vol] 108 mg/dL Critically high 74-106 [facility] Comment on above: Performed By: #### M G, URIC, RENAL #### [facility] [address] [place] [address] Dr. Hari Palmer Phosphate [Mass/Vol] 5.4 mg/dL Critically high 2.6-4.7 [facility] Comment on above: Performed By: #### M G, URIC, RENAL #### [facility] [address] [place] [address] Dr. Hari Palmer Potassium [Moles/Vol] 3.9 mmol/L Normal 3.5-5.1 [facility] Comment on above: Performed By: #### M G, URIC, RENAL #### [facility] [address] [place] [address] Dr. Hari Palmer Sodium [Moles/Vol] 137 mmol/L Normal 136-145 [facility] Comment on above: Performed By: #### M G, URIC, RENAL #### [facility] [address] [place] [address] Dr. Hari Palmer Urea nitrogen [Mass/Vol] 47.0 mg/dL Critically high 7.0-18.0 [facility] Comment on above: Performed By: #### M G, URIC, RENAL #### [facility] [address] [place] [address] Dr. Hari Palmer URIC ACID SERUMon 07-29-2022 Urate [Mass/Vol] 6.3 mg/dL Critically high 2.6-6.0 [facility] Comment on above: Performed By: #### M G, URIC, RENAL #### [facility] [address] [place] [address] Dr. Hari Palmer URINE T PROTEIN CREAT RATIOo n 07-29-2022 Protein (U) [Mass/Vol] 29.7 mg/dL Critically high <=12.0 [facility] Comment on above: Performed By: #### M G, URIC, RENAL #### [facility] [address] [place] [address] Dr. Hari Palmer UR PROT CREAT RAT 0.56 Normal [facility] Comment on above: Performed By: #### M Edy, URIC, RENAL #### [facility] [address] [place] [address] Dr. Hari Palmer URINE CREAT 53.35 mg/dL Normal 20.00-300.00 [facility] Comment on above: Performed By: #### M G, URIC, RENAL #### [facility] [address] [place] [address] Dr. Hari Palmer VITAMIN D 25 OHon 07-29-2022 VIT D 25-OH 38.8 ng/mL Normal [facility] Comment on above: Performed By: #### M G, URIC, RENAL #### [facility] [address] [place] [address] Dr. Hari Palmer VIT D RANGES SEE BELOW Normal [facility] Comment on above: Result Comment: <20 ng/mL Vit D deficient 20 - <30 ng/mL Vit D insufficient 30 - 100 ng/mL Vit D sufficient >100 ng/mL Potential Toxicity Performed By: #### M G, URIC, RENAL #### [facility] [address] [place] [address] Dr. Hari Palmer Albumin [Mass/volume] in Ser um or PlasmaOrdered By: Stanley Forman on 06-20-2022 Albumin [Mass/Vol] 3.9 g/dL 3.2-5.5 [facility] Basophils Auto (Bld) [#/Vol] Ordered By: Stanley Forman on 06-20-2022 Basophils (Bld) [#/Vol] 0.1 10*3/uL 0.0-0.2 [facility] Basophils/100 WBC Auto (Bld) Ordered By: Stanley Forman on 06-20-2022 Basophils/100 WBC (Bld) 0.7 % . [facility] Blood hemoglobin measurement (mass/volume)Ordered By: Stanley Forman on 06-20-2022 Hemoglobin (Bld) [Mass/Vol] 10.8 g/dL 11.8-15.4 [facility] Blood leukocytes automated c ount (number/volume)Ordered By: Stanley Forman on 06-20-2022 WBC (Bld) [#/Vol] 11.8 10*3/uL 4.5-11.0 [facility] C reactive protein [Mass/vol ume] in Serum or PlasmaOrdered By: Stanley Forman on 06-20-2022 CRP [Mass/Vol] 5.2 mg/dL 0.0-1.0 [facility] Creatinine and Glomerular fi ltration rate.predicted panel (S/P/Bld)Ordered By: Stanley Forman on 06-20-2022 Creatinine [Mass/Vol] 4.49 mg/dL 0.44-1.03 [facility] Eosinophils Auto (Bld) [#/Vo l]Ordered By: Stanley Forman on 06-20-2022 Eosinophils (Bld) [#/Vol] 0.4 10*3/uL 0.0-0.45 [facility] Eosinophils/100 WBC Auto (Bl d)Ordered By: Stanley Forman on 06-20-2022 Eosinophils/100 WBC (Bld) 3.2 % . [facility] Erythrocyte distribution wid th Auto (RBC) [Ratio]Ordered By: Stanley Forman on 06-20-2022 Erythrocyte distribution width (RBC) [Ratio] 14.0 % 11.9-15.3 [facility] Erythrocyte sedimentation ra te by Photometric methodOrdered By: Stnaley Forman on 06-20-2022 ESR Photometric method (Bld) [Velocity] 67 mm/hr 0-19 [facility] Estimated glomerular filtrat ion rate (GFR) non- AmericanOrdered By: Stanley Forman on 06-20-2022 GFR/1.73 sq M.predicted among non-blacks MDRD (S/P/Bld) [Vol rate/Area] 11 mL/Min [facility] Globulin Calc (S) [Mass/Vol] Ordered By: Stanley Forman on 06-20-2022 Globulin (S) [Mass/Vol] 3.5 g/dL [facility] Hematocrit Auto (Bld) [Volum e fraction]Ordered By: Stanley Forman on 06-20-2022 Hematocrit (Bld) [Volume fraction] 33.1 % 34.0-46.4 [facility] - Hematology and Cell countsOrdered By: Stanley Forman on 06-20-2022 Nucleated RBC/100 WBC (Bld) [Ratio] 0.0 % 0-0.5 [facility] Lymphocytes Auto (Bld) [#/Vo l]Ordered By: Stanley Forman on 06-20-2022 Lymphocytes (Bld) [#/Vol] 1.5 10*3/uL 1.00-4.8 [facility] Lymphocytes/100 WBC Auto (Bl d)Ordered By: Stanley Forman on 06-20-2022 Lymphocytes/100 WBC (Bld) 12.3 % . [facility] MCH Auto (RBC) [Entitic mass ]Ordered By: Stanley Forman on 06-20-2022 MCH (RBC) [Entitic mass] 31.1 pg 24.7-34.3 [facility] MCHC Auto (RBC) [Mass/Vol]Or dered By: Stanley Forman on 06-20-2022 MCHC (RBC) [Mass/Vol] 32.5 g/dL 32.0-35.0 [facility] MCV Auto (RBC) [Entitic vol] Ordered By: Stanley Forman on 06-20-2022 MCV (RBC) [Entitic vol] 95.6 fL 80-100 [facility] Monocytes Auto (Bld) [#/Vol] Ordered By: Stanley Forman on 06-20-2022 Monocytes (Bld) [#/Vol] 0.5 10*3/uL 0.0-0.8 [facility] Monocytes/100 WBC Auto (Bld) Ordered By: Stanley Forman on 06-20-2022 Monocytes/100 WBC (Bld) 4.1 % . [facility] Neutrophils Auto (Bld) [#/Vo l]Ordered By: Stanley Forman on 06-20-2022 Neutrophils (Bld) [#/Vol] 9.4 10*3/uL 1.8-7.7 [facility] Neutrophils/100 WBC Auto (Bl d)Ordered By: Stanley Forman on 06-20-2022 Neutrophils/100 WBC (Bld) 79.7 % . [facility] No Panel InformationOrdered By: Stanley Forman on 06-20-2022 Estimated GFR () 13 mL/Min [facility] Comment on above: GFR estimated refere nce range: According to KDOQI guidelines, <60 ml/min/1.73m2 is sufficient to diagnose a patient with chronic kidney disease. Pharmacy Creatinine Clearance (Chem 16.48 [facility] Platelet mean volume Auto (B ld) [Entitic vol]Ordered By: Stanley Forman on 06-20-2022 Platelet mean volume (Bld) [Entitic vol] 7.0 fL 6.3-10.7 [facility] Platelets Auto (Bld) [#/Vol] Ordered By: Stanley Forman on 06-20-2022 Platelets (Bld) [#/Vol] 287 10*3/uL 150-450 [facility] Protein [Mass/volume] in Ser um or PlasmaOrdered By: Stanley Forman on 06-20-2022 Protein [Mass/Vol] 7.4 g/dL 6.1-7.9 [facility] RBC Auto (Bld) [#/Vol]Ordere d By: Stanley Forman on 06-20-2022 RBC (Bld) [#/Vol] 3.46 10*6/uL 3.60-5.00 [facility] Serum or plasma alanine cesar otransferase measurement without P-5'-P (enzymatic activiOrdered By: Stanley Forman on 06-20-2022 ALT No additional P-5'-P [Catalytic activity/Vol] 11 U/L 10-60 [facility] Serum or plasma albumin/glob ulin mass ratioOrdered By: Stanley Forman on 06-20-2022 Albumin/Globulin [Mass ratio] 1.1 {ratio} [facility] Serum or plasma alkaline gina sphatase measurement (enzymatic activity/volume)Ordered By: Stanley Forman on 06-20-2022 ALP [Catalytic activity/Vol] 82 U/L 32-92 [facility] Serum or plasma anion gap de terminationOrdered By: Stanley Forman on 06-20-2022 Anion gap [Moles/Vol] 16.2 mmol/L 6.0-15.0 [facility] Serum or plasma aspartate am inotransferase measurement (enzymatic activity/volume)Ordered By: Stanley Forman on 06-20-2022 AST [Catalytic activity/Vol] 15 U/L 10-42 [facility] Serum or plasma calcium ge urement (mass/volume)Ordered By: Stanley Forman on 06-20-2022 Calcium [Mass/Vol] 9.3 mg/dL 8.2-10.2 [facility] Serum or plasma chloride lee surement (moles/volume)Ordered By: Stanley Forman on 06-20-2022 Chloride [Moles/Vol] 103 mmol/L 95-114 [facility] Serum or plasma glucose ge urement (mass/volume)Ordered By: Stanley Forman on 06-20-2022 Glucose [Mass/Vol] 75 mg/dL 70-100 [facility] Comment on above: ADA recommended refe rence rangeRandom Glucose Reference Range is dependent on time and content of last meal. Glucose of more than 200 mg/dL in a nonstressed, ambulatory subject supports the diagnosis of Diabetes Mellitus. Serum or plasma potassium me asurement (moles/volume)Ordered By: Stanley Forman on 06-20-2022 Potassium [Moles/Vol] 4.3 mmol/L 3.5-5.1 [facility] Serum or plasma sodium measu rement (moles/volume)Ordered By: Stanley Forman on 06-20-2022 Sodium [Moles/Vol] 135 mmol/L 136-146 [facility] Serum or plasma total biliru bin measurement (mass/volume)Ordered By: Stanley Forman on 06-20-2022 Bilirubin [Mass/Vol] 0.3 mg/dL 0.3-1.2 [facility] Serum or plasma total carbon dioxide measurement (moles/volume)Ordered By: Stanley Forman on 06-20-2022 CO2 [Moles/Vol] 20.1 mmol/L 22.0-30.0 [facility] Serum or plasma urea nitroge n measurement (mass/volume)Ordered By: Stanley Forman on 06-20-2022 Urea nitrogen [Mass/Vol] 42 mg/dL 06-28 [facility] COVID-19 Positive/NegativeOr dered By: Jesus Parham on 06-14-2022 SARS-CoV-2 (COVID-19) N gene AMBERLY+probe Ql (Resp) Negative Negative [facility] Comment on above: Testing for SARS-CoV -2 by RT-PCR This test was developed and its performance characteristics determined by [employer]) and validated at the [facility]. This test has not been [...] developed and its performance characteristics determined by [employer] and validated at the [facility]. This test has not been [...] (CA) 125 10.8 U/mL Normal 0.0-38.1 [facility] Comment on above: Result Comment: [employer] Electrochemiluminescence Immunoassay (ECLIA) . Values obtained with different assay methods or kits cannot be used interchangeably. Results cannot be interpreted as absolute evidence of the presence or absence of malignant disease. Performed By: #### M G, URIC, RENAL #### [facility] [address] [address] [address] Hari Palmer CEAon 06-08-2022 CEA 0.9 ng/mL Normal 0.0-4.7 [facility] Comment on above: Result Comment: Nons mokers <3.9 Smokers <5.6 . [employer] Electrochemiluminescence Immunoassay (ECLIA) . Values obtained with different assay methods or kits cannot be used interchangeably. Results cannot be interpreted as absolute evidence of the presence or absence of malignant disease. Performed By: #### C EA. #### [facility] [address] [address] [address] Hari Palmer Basophils Auto (Bld) [#/Vol] Ordered By: Jesus Parham on 06-05-2022 Basophils (Bld) [#/Vol] 0.0 10*3/uL 0.0-0.2 [facility] Basophils/100 WBC Auto (Bld) Ordered By: eJsus Parham on 06-05-2022 Basophils/100 WBC (Bld) 0.3 % . [facility] Blood hemoglobin measurement (mass/volume)Ordered By: Jesus Parham on 06-05-2022 Hemoglobin (Bld) [Mass/Vol] 12.0 g/dL 11.8-15.4 [facility] Blood leukocytes automated c ount (number/volume)Ordered By: Jesus Parham on 06-05-2022 WBC (Bld) [#/Vol] 8.5 10*3/uL 4.5-11.0 [facility] Creatinine and Glomerular fi ltration rate.predicted panel (S/P/Bld)Ordered By: Jesus Parham on 06-05-2022 Creatinine [Mass/Vol] 3.52 mg/dL 0.44-1.03 [facility] Eosinophils Auto (Bld) [#/Vo l]Ordered By: Jesus Parham on 06-05-2022 Eosinophils (Bld) [#/Vol] 0.2 10*3/uL 0.0-0.45 [facility] Eosinophils/100 WBC Auto (Bl d)Ordered By: Jesus Parham on 06-05-2022 Eosinophils/100 WBC (Bld) 2.7 % . [facility] Erythrocyte distribution wid th Auto (RBC) [Ratio]Ordered By: Jesus Parham on 06-05-2022 Erythrocyte distribution width (RBC) [Ratio] 14.2 % 11.9-15.3 [facility] Estimated glomerular filtrat ion rate (GFR) non- AmericanOrdered By: Jesus Parham on 06-05-2022 GFR/1.73 sq M.predicted among non-blacks MDRD (S/P/Bld) [Vol rate/Area] 14 mL/Min [facility] Hematocrit Auto (Bld) [Volum e fraction]Ordered By: Jesus Parham on 06-05-2022 Hematocrit (Bld) [Volume fraction] 35.8 % 34.0-46.4 [facility] - Hematology and Cell countsOrdered By: Jesus Parham on 06-05-2022 Nucleated RBC/100 WBC (Bld) [Ratio] 0.1 % 0-0.5 [facility] Lymphocytes Auto (Bld) [#/Vo l]Ordered By: Jesus Parham on 06-05-2022 Lymphocytes (Bld) [#/Vol] 1.6 10*3/uL 1.00-4.8 [facility] Lymphocytes/100 WBC Auto (Bl d)Ordered By: Jesus Parham on 06-05-2022 Lymphocytes/100 WBC (Bld) 19.3 % . [facility] MCH Auto (RBC) [Entitic mass ]Ordered By: Jesus Parham on 06-05-2022 MCH (RBC) [Entitic mass] 31.5 pg 24.7-34.3 [facility] MCHC Auto (RBC) [Mass/Vol]Or dered By: Jesus Parham on 06-05-2022 MCHC (RBC) [Mass/Vol] 33.3 g/dL 32.0-35.0 [facility] MCV Auto (RBC) [Entitic vol] Ordered By: Jesus Parham on 06-05-2022 MCV (RBC) [Entitic vol] 94.4 fL 80-100 [facility] Monocytes Auto (Bld) [#/Vol] Ordered By: Jesus Parham on 06-05-2022 Monocytes (Bld) [#/Vol] 0.3 10*3/uL 0.0-0.8 [facility] Monocytes/100 WBC Auto (Bld) Ordered By: Jesus Parham on 06-05-2022 Monocytes/100 WBC (Bld) 3.9 % . [facility] Neutrophils Auto (Bld) [#/Vo l]Ordered By: Jesus Parham on 06-05-2022 Neutrophils (Bld) [#/Vol] 6.2 10*3/uL 1.8-7.7 [facility] Neutrophils/100 WBC Auto (Bl d)Ordered By: Jesus Parham on 06-05-2022 Neutrophils/100 WBC (Bld) 73.8 % . [facility] No Panel InformationOrdered By: Jesus Parham on 06-05-2022 Estimated GFR () 17 mL/Min [facility] Comment on above: GFR estimated refere nce range: According to KDOQI guidelines, <60 ml/min/1.73m2 is sufficient to diagnose a patient with chronic kidney disease. Pharmacy Creatinine Clearance (Chem N/A [facility] Platelet mean volume Auto (B ld) [Entitic vol]Ordered By: Jesus Parham on 06-05-2022 Platelet mean volume (Bld) [Entitic vol] 7.3 fL 6.3-10.7 [facility] Platelets Auto (Bld) [#/Vol] Ordered By: Jesus Parham on 06-05-2022 Platelets (Bld) [#/Vol] 312 10*3/uL 150-450 [facility] RBC Auto (Bld) [#/Vol]Ordere d By: Jesus Parham on 06-05-2022 RBC (Bld) [#/Vol] 3.80 10*6/uL 3.60-5.00 [facility] Serum or plasma anion gap de terminationOrdered By: Jesus Parham on 06-05-2022 Anion gap [Moles/Vol] 15.1 mmol/L 6.0-15.0 [facility] Serum or plasma calcium ge urement (mass/volume)Ordered By: Jesus Parham on 06-05-2022 Calcium [Mass/Vol] 9.5 mg/dL 8.2-10.2 [facility] Serum or plasma chloride lee surement (moles/volume)Ordered By: Jesus Parham on 06-05-2022 Chloride [Moles/Vol] 106 mmol/L 95-114 [facility] Serum or plasma glucose ge urement (mass/volume)Ordered By: Jesus Parham on 06-05-2022 Glucose [Mass/Vol] 91 mg/dL 70-100 [facility] Comment on above: ADA recommended [...] on 06-05-2022 Potassium [Moles/Vol] 4.4 mmol/L 3.5-5.1 [facility] Serum or plasma sodium measu rement (moles/volume)Ordered By: Jesus Parham on 06-05-2022 Sodium [Moles/Vol] 137 mmol/L 136-146 [facility] Serum or plasma total carbon dioxide measurement (moles/volume)Ordered By: Jesus Parham on 06-05-2022 CO2 [Moles/Vol] 20.3 mmol/L 22.0-30.0 [facility] Serum or plasma urea nitroge n measurement (mass/volume)Ordered By: Jesus Parham on 06-05-2022 Urea nitrogen [Mass/Vol] 38 mg/dL 06-28 [facility] PTH INTACTon 04-29-2022 PTH, Intact 191 pg/mL Critically high 15-65 [facility] Comment on above: Performed By: #### M G, URIC, RENAL #### [facility] [address] [address] [address] Hari Palmer VIT D 25-OH LABCORPon 2021 Vitamin D, 25-Hydroxy 33.6 ng/mL Normal 30.0-100.0 [facility] Comment on above: Result Comment: Ning min D deficiency has been defined by the Baker of Medicine and an Endocrine Society practice guideline as a level of serum 25-OH vitamin D less than 20 ng/mL (1,2). The Endocrine Society went on to further define vitamin D insufficiency as a level between 21 and 29 ng/mL (2). 1. IOM (Baker of Medicine). 2010. Dietary reference intakes for calcium and D. [place]: The National Academies Press. 2. Chantel MF, Landen [place], Eliseo STEPHENS, et al. Evaluation, treatment, and prevention of vitamin D deficiency: an Endocrine Society clinical practice guideline. JCEM. 2010; 96(7):1911-30. Performed By: #### M G, URIC, RENAL #### [facility] [address], [place] [address] Dr. Hari Palmer ABO AND RH TYPEon 04-27-2022 ABO and Rh group Nom (Bld) ABO Rh Typing O Rh Positive Normal [facility] Comment on above: Performed By: #### M G, URIC, RENAL #### [facility] [address], [place] [address] Dr. Hari Palmer FERRITINon 04-27-2022 Ferritin [Mass/Vol] 273.0 ng/mL Critically high 6.2-137.0 [facility] Comment on above: Performed By: #### M G, URIC, RENAL #### [facility] [address] [place] [address] Dr. Hari Palmer HEMOGRAM AND PLATELon 2021 Hematocrit (Bld) [Volume fraction] 33.9 % Critically low 36.0-48.0 [facility] Comment on above: Performed By: #### M G, URIC, RENAL #### [facility] [address] [place] [address] Dr. Hari Palmer Hemoglobin (Bld) [Mass/Vol] 11.4 g/dL Critically low 12.0-16.0 [facility] Comment on above: Performed By: #### M G, URIC, RENAL #### [facility] [address] [place] [address] Dr. Hari Palmer MCH (RBC) [Entitic mass] 31.7 pg Normal 26.7-34.0 [facility] Comment on above: Performed By: #### M G, URIC, RENAL #### [facility] [address] [place] [address] Dr. Hari Palmer MCHC (RBC) [Mass/Vol] 33.6 g/dL Normal 29.9-35.2 [facility] Comment on above: Performed By: #### M G, URIC, RENAL #### [facility] [address] [place] [address] Dr. Hari Palmer MCV (RBC) [Entitic vol] 94.2 fL Normal 81.0-99.0 [facility] Comment on above: Performed By: #### M G, URIC, RENAL #### [facility] [address] [place] [address] Dr. Hari Palmer PLT 333 103/ul Normal 150-450 [facility] Comment on above: Performed By: #### M G, URIC, RENAL #### [facility] [address] [place] [address] Dr. Hari Palmer RBC 3.60 106/ul Critically low 4.20-5.40 [facility] Comment on above: Performed By: #### M G, URIC, RENAL #### [facility] [address] [place] [address] Dr. Hari Palmer WBC 9.7 103/ul Normal 4.0-11.0 [facility] Comment on above: Performed By: #### M G, URIC, RENAL #### [facility] [address] [place] [address] Dr. Hari Palmer IRON AND TIBCon 04-27-2022 % SATURATION 20.1 % Normal [facility] Comment on above: Performed By: #### M G, URIC, RENAL #### [facility] [address] [place] [address] Dr. Hari Palmer Iron [Mass/Vol] 57.0 ug/dL Normal 50.0-170.0 [facility] Comment on above: Performed By: #### M G, URIC, RENAL #### [facility] [address] [place] [address] Dr. Hari Palmer TIBC DIRECT 283.0 ug/dL Normal 250.0-450.0 [facility] Comment on above: Performed By: #### M G, URIC, RENAL #### [facility] [address] [place] [address] Dr. Hari Palmer MAGNESIUMon 04-27-2022 Magnesium [Mass/Vol] 2.1 mg/dL Normal 1.8-2.4 [facility] Comment on above: Performed By: #### R ENAL, URIC, MG #### [facility] [address] [place] [address] Dr. Hari Palmer RENAL FUNCTION PANELon 04-27 Albumin [Mass/Vol] 3.6 g/dL Normal 3.4-5.0 [facility] Comment on above: Performed By: #### R ENAL, URIC, MG #### [facility] [address] [place] [address] Dr. Hari Palmer Calcium [Mass/Vol] 9.0 mg/dL Normal 8.5-10.1 [facility] Comment on above: Performed By: #### R ENAL, URIC, MG #### [facility] [address] [place] [address] Dr. Hari Palmer Chloride [Moles/Vol] 104 mmol/L Normal 98-107 [facility] Comment on above: Performed By: #### R ENAL, URIC, MG #### [facility] [address] [place] [address] Dr. Hari Palmer CO2 [Moles/Vol] 23.0 mmol/L Normal 21.0-32.0 [facility] Comment on above: Performed By: #### R ENAL, URIC, MG #### [facility] [address] [place] [address] Dr. Hari Palmer Creatinine [Mass/Vol] 3.38 mg/dL Critically high 0.55-1.02 [facility] Comment on above: Performed By: #### R ENAL, URIC, MG #### [facility] [address] [place] [address] Dr. Hari Palmer EGFR-AF SCOTTISH 18 mL/min/1.73m2 Critically low >=60 [facility] Comment on above: Performed By: #### R ENAL, URIC, MG #### [facility] [address] [place] [address] Dr. Hari Palmer EGFR-NON AF SCOTTISH 15 mL/min/1.73m2 Critically low >=60 [facility] Comment on above: Performed By: #### R ENAL, URIC, MG #### [facility] [address] [place] [address] Dr. Hari Palmer Glucose [Mass/Vol] 113 mg/dL Critically high 74-106 [facility] Comment on above: Performed By: #### R ENAL, URIC, MG #### [facility] [address] [place] [address] Dr. Hari Palmer Phosphate [Mass/Vol] 4.4 mg/dL Normal 2.6-4.7 [facility] Comment on above: Performed By: #### R ENAL, URIC, MG #### [facility] [address] [place] [address] Dr. Hari Palmer Potassium [Moles/Vol] 4.0 mmol/L Normal 3.5-5.1 [facility] Comment on above: Performed By: #### R ENAL, URIC, MG #### [facility] [address] [place] [address] Dr. Hari Palmer Sodium [Moles/Vol] 137 mmol/L Normal 136-145 [facility] Comment on above: Performed By: #### R ENAL, URIC, MG #### [facility] [address] [address] [address] Hari Palmer Urea nitrogen [Mass/Vol] 44.0 mg/dL Critically high 7.0-18.0 The [facility] Comment on above: Performed By: #### R ENAL, URIC, MG #### [facility] [address] [place] [address] Dr. Hari Palmer URIC ACID SERUMon 04-27-2022 Urate [Mass/Vol] 6.6 mg/dL Critically high 2.6-6.0 [facility] Comment on above: Performed By: #### R ENAL, URIC, MG #### [facility] [address] [place] [address] Dr. Hari Palmer URINE T PROTEIN CREAT RATIOo n 04-27-2022 Protein (U) [Mass/Vol] 31.4 mg/dL Critically high <=12.0 [facility] Comment on above: Performed By: #### M G, URIC, RENAL #### [facility] [address] [place] [address] Dr. Hari Palmer UR PROT CREAT RAT 0.55 Normal [facility] Comment on above: Performed By: #### M G, URIC, RENAL #### [facility] [address] [place] [address] Dr. Hari Palmer URINE CREAT 57.50 mg/dL Normal 20.00-300.00 [facility] Comment on above: Performed By: #### M G, URIC, RENAL #### [facility] [address] [place] [address] Dr. Hari Palmer ECHOCARDIO M/2D COMPLETEon 0 03-29-2022 ECHOCARDIO M/2D COMPLETE Patient: MANDEEP PURI Exam Date: 03/29/2022 : 1975 Gender:F Ordering : HAIDER FRENCH M.D. Admission #: [id number] Family : Order #: [id number] CLICK HERE TO VIEW EXAM ECHOCARDIOGRAM REPORT [...] Area(A4C): 17.00 cm2 Left Atrium Systolic Volume(A2C): 79219 mm3 Left Atrium Systolic Volume(A4C): 74789 mm3 Mitral Valve MV E to A Ratio: 0.80 Deceleration Avery: 3210 mm/s2 Mitral Valve A-Wave Peak Velocity: [...] Alonzo M.D. on 04/01/2022 at 12:33 Normal [facility] COVID-19 SOFIAOrdered By: Mary Beth Jones on 03-28-2022 SARS-CoV+SARS-CoV-2 (COVID-19) Ag IA.rapid Ql (Resp) Negative Negative [facility] Comment on above: This is a duplicate Ada SARS Antigen (GLORIA) result to be used for statistical tracking purpose only. No Panel InformationOrdered By: Shabbir Jones on 03-28-2022 SARS Antigen (LFIA) [facility] BLOOD TYPE AND RHon 02-13-20 22 ABO INTERPRETATION O Normal [facility] Comment on above: Performed By: #### 3 1397, 47373, 14027, 85069, 09085 #### [facility] [address] [facility] [place] [address], [place] RH INTERPRETATION Positive Normal [facility] Comment on above: Performed By: #### 3 1397, 01401, 87878, 54786, 50662 #### [facility] [address] BNP (B-TYPE NATRIURETIC PEPT JOEL)on 02-12-2022 Natriuretic peptide B (Bld) [Mass/Vol] 10 pg/mL Normal 0-100 [facility] Comment on above: Result Comment: Give n the appropriate clinical setting a BNP result of >100 pg/mL indicates congestive heart failure. Performed By: #### 8 5123, 25434 #### [facility] [address] CBC W/DIFFon 02-12-2022 ABS IMM GRANS 0.2 10*3/uL Normal 0.0-0.2 [facility] Comment on above: Performed By: #### 3 1397, 02302, 56441, 15253, 55522 #### [facility] [address] ABS NEUTROPHILS 7.8 10*3/uL High 1.6-7.6 [facility] Comment on above: Performed By: #### 3 1397, 06124, 12762, 47434, 24840 #### [facility] [address] Basophils (Bld) [#/Vol] 0.1 10*3/uL Normal 0.0-0.2 [facility] Comment on above: Performed By: #### 3 1397, 14559, 95393, 17144, 88807 #### [facility] [address] Basophils/100 WBC (Bld) 0.6 % Normal 0.0-1.0 [facility] Comment on above: Performed By: #### 3 1397, 82307, 28603, 48380, 85459 #### [facility] [address] Eosinophils (Bld) [#/Vol] 0.3 10*3/uL Normal 0.0-0.5 [facility] Comment on above: Performed By: #### 3 1397, 42331, 13737, 72699, 74129 #### [facility] [address] Eosinophils/100 WBC (Bld) 2.5 % Normal 0.0-6.0 [facility] Comment on above: Performed By: #### 3 1397, 76173, 71547, 63160, 58881 #### [facility] [address] Erythrocyte distribution width (RBC) [Ratio] 13.6 % Normal 11.5-15.0 [facility] Comment on above: Performed By: #### 3 1397, 65625, 60654, 26310, 67955 #### [facility] [address] Hematocrit (Bld) [Volume fraction] 34.5 % Low 36.0-45.0 [facility] Comment on above: Performed By: #### 3 1397, 82404, 90669, 33938, 05171 #### [facility] [address] [facility] [address] Hemoglobin (Bld) [Mass/Vol] 11.3 g/dL Low 12.0-15.0 [facility] Comment on above: Performed By: #### 3 1397, 59153, 60366, 41792, 91852 #### [facility] [address] [facility] [address] IMMATURE GRANS 1.4 % High 0.0-1.0 [facility] Comment on above: Performed By: #### 3 1397, 88839, 13200, 16262, 26941 #### [facility] [address] [facility]. [address] Lymphocytes (Bld) [#/Vol] 2.0 10*3/uL Normal 1.2-4.0 [facility] Comment on above: Performed By: #### 3 1397, 91539, 17458, 64491, 42047 #### [facility] [address] [place] [address], [facility] Lymphocytes/100 WBC (Bld) 18.6 % Low 20.0-45.0 [facility] Comment on above: Performed By: #### 3 1397, 22922, 89730, 63993, 82127 #### [facility] [address] [place] [address], [facility] MCH (RBC) [Entitic mass] 31.3 pg Normal 27.0-33.0 [facility] Comment on above: Performed By: #### 3 1397, 31095, 43489, 08443, 00509 #### [facility] [address] [facility] [place] [address], [facility] MCHC (RBC) [Mass/Vol] 32.8 g/dL Normal 32.0-35.0 [facility] Comment on above: Performed By: #### 3 1397, 34822, 23471, 33076, 44120 #### [facility] [address] [facility] [place] [address], [facility] MCV (RBC) [Entitic vol] 95.6 fL Normal 82.0-98.0 [facility] Comment on above: Performed By: #### 3 1397, 51125, 47176, 05532, 00582 #### [facility] [address] [facility] [place] [address], [facility] Monocytes (Bld) [#/Vol] 0.5 10*3/uL Normal 0.1-1.0 [facility] Comment on above: Performed By: #### 3 1397, 33842, 23537, 04214, 33281 #### [facility] [address] [facility] [place] [id number], [facility] MONOS 4.9 % Low 5.0-12.0 [facility] Comment on above: Performed By: #### 3 1397, 82482, 86722, 24521, 48928 #### [facility] [address] [place] [address], [facility] Neutrophils/100 WBC (Bld) 72.0 % Normal 40.0-72.0 [facility] Comment on above: Performed By: #### 3 1397, 72042, 37382, 10347, 58757 #### [facility] [address] [facility] [place] [address], [facility] Nucleated RBC/100 WBC (Bld) [Ratio] 0 % Normal 0-0 [facility] Comment on above: Performed By: #### 3 1397, 29679, 07255, 49186, 48935 #### [facility] [address] [facility] [place] [place] [address], [facility] PLAT CNT 315 10*3/uL Normal 150-400 [facility] Comment on above: Performed By: #### 3 1397, 01382, 97890, 49520, 96471 #### [facility] [address] [facility] [place] [place] [address], [facility] RBC (Bld) [#/Vol] 3.61 10*6/uL Low 3.80-5.00 [facility] Comment on above: Performed By: #### 3 1397, 10853, 80588, 98428, 79502 #### [facility] [address] [facility] [place] [address], [facility] WBC (Bld) [#/Vol] 10.78 10*3/uL High 4.00-10.60 [facility] Comment on above: Performed By: #### 3 1397, 46872, 02682, 05527, 95563 #### [facility] [address] [facility] [place] [place] [address], [facility] CHEST AND LATERALon 02-13-20 22 CHEST AND LATERAL [facility] Department of Radiology [address] [place] [phone] == Patient Name: MANDEEP PURI : 1975 [...] pathology. Electronically signed: Royal Dominguez. Transcribed by: [email or web address], User Resident: Electronically Signed by: ROYAL DOMINGUEZ @ 02/13/2022 11:48 AM Normal [facility] CMV IGG BLOODon 02-12-2022 CMV IGG 3.13 Normal [facility] Comment on above: Result Comment: NORM AL RANGES: < OR = 0.9O NEGATIVE ; NO DETECTABLE IgG ANTIBODY TO CMV 0.91 - 1.09 EQUIVOCAL; REPEAT TESTING SUGGESTED > OR = 1.10 POSITIVE ; INDICATES PRESENCE OF DETECTABLE IgG ANTIBODY TO CMV Performed By: #### 3 1397, 16971, 16273, 37460, 49369 #### [facility] [address] [place] [address], [facility] COMP METABOLIC PANELon 02-12 Albumin [Mass/Vol] 4.5 g/dL Normal 3.5-5.7 [facility] Comment on above: Performed By: #### 2 2505, 10261, 17459 #### [facility] [address] [place] [address], [place] ALKALINE PHOSPH 89 IU/L Normal 34-104 [facility] Comment on above: Performed By: #### 2 2505, 39407, 51638 #### [facility] [address] [place] [address], [place] ALT [Catalytic activity/Vol] 12 U/L Normal 7-52 [facility] Comment on above: Performed By: #### 2 2505, 92765, 00430 #### [facility] [address] [place] [address], [place] AST [Catalytic activity/Vol] 13 U/L Normal 13-39 [facility] Comment on above: Performed By: #### 2 2505, 55739, 83288 #### [facility] [address] [place] [address], [place] Bilirubin [Mass/Vol] 0.3 mg/dL Normal 0.3-1.0 [facility] Comment on above: Performed By: #### 2 2505, 41357, 85872 #### [facility] [address] [place] [address], [place] Calcium [Mass/Vol] 9.5 mg/dL Normal 8.6-10.3 [facility] Comment on above: Performed By: #### 2 2505, 02093, 43836 #### [facility] [address] [place] [address], [facility] Chloride [Moles/Vol] 103 mmol/L Normal 98-107 [facility] Comment on above: Performed By: #### 2 2505, 13078, 12505 #### [facility] [address] [place] [address], [place] CO2 [Moles/Vol] 22 mmol/L Normal 21-31 [facility] Comment on above: Performed By: #### 2 2505, 71624, 69774 #### [facility] [address] [place] [address], [facility] Creatinine [Mass/Vol] 3.51 mg/dL High 0.60-1.20 [facility] Comment on above: Performed By: #### 2 2505, 16661, 35398 #### [facility] [address] [place] [address], [facility] eGFR- 17 ml/min/1.73sq m Abnormal >60 [facility] Comment on above: Performed By: #### 2 2505, 53797, 99657 #### [facility] [address] [place] [address], [facility] eGFR- non- 14 ml/min/1.73sq m Abnormal >60 [facility] Comment on above: Performed By: #### 2 2505, 29871, 60477 #### [facility] [address] [place] [address], [place] Glucose [Mass/Vol] 100 mg/dL Normal 70-100 [facility] Comment on above: Performed By: #### 2 2505, 29535, 32503 #### [facility] [address] [place] [address], [facility] Potassium [Moles/Vol] 3.9 mmol/L Normal 3.5-5.1 [facility] Comment on above: Performed By: #### 2 2505, 77983, 02583 #### [facility] [address] [place] [address], [facility] Protein [Mass/Vol] 8.0 g/dL Normal 6.0-8.3 [facility] Comment on above: Performed By: #### 2 2505, 04877, 50008 #### [facility] [address] [place] [address], [place] Sodium [Moles/Vol] 136 mmol/L Normal 136-145 [facility] Comment on above: Performed By: #### 2 2505, 36041, 61292 #### [facility] [address] [place] [address], [place] Urea nitrogen [Mass/Vol] 41 mg/dL High 7-25 [facility] Comment on above: Performed By: #### 2 2505, 88568, 81736 #### [facility] [address] [place] [address], [place] CREATININE URINE RANDOMon Creatinine (U) [Mass/Vol] 63.0 mg/dL Normal [facility] Comment on above: Result Comment: Ther e are no established reference values for random urine specimens Performed By: #### 3 1397, 51161, 14997, 52420, 25382 #### [facility] [address] [place] [address], [facility] CT RENAL RECIPIENT ABDOMEN A ND PEVLIS WO CONTRASTon 02-12-2022 CT RENAL RECIPIENT ABDOMEN AND PEVLIS WO CONTRAST [facility] Department of Radiology [address] [place] [address] [phone] == Patient Name: MANDEEP PURI : 1975 [...] achievable. Electronically signed: NAN SARAVIA. Transcribed by: [email or web address], User Resident: Electronically Signed by: NAN SARAVIA @ 02/12/2022 02:59 PM Normal [facility] Comment on above: Order Comment: , [...] Bilirubin.direct [Mass/Vol] 0.0 mg/dL Normal 0.0-0.2 [facility] Comment on above: Performed By: #### 2 2045, 82789, 49241 #### [facility] [address] BRETT LAGUERRE VIRUS ABon 05- EB VCA IGG 2.35 Normal [facility] Comment on above: Order Comment: CONSI STENT WITH PAST EBV INFECTION Result Comment: NORM AL RANGES: < OR = 0.9O NEGATIVE ; NO DETECTABLE IgG ANTIBODY TO EBV-VCA 0.91 - 1.09 EQUIVOCAL; REPEAT TESTING SUGGESTED > OR = 1.10 POSITIVE ; INDICATES PRESENCE OF DETECTABLE IgG ANTIBODY TO EBV Performed By: #### 3 1397, 27982, 74845, 76538, 30710 #### [facility] [address] EB VCA IGM 0.00 Normal [facility] Comment on above: Order Comment: CONSI STENT WITH PAST EBV INFECTION Result Comment: NORM AL RANGES: < OR = 0.9O NEGATIVE ; NO SIGNIFICANT LEVEL OF DETECTABLE EBV-VCA IgM AB 0.91 - 1.09 EQUIVOCAL; REPEAT TESTING SUGGESTED > OR = 1.10 POSITIVE ; SIGNIFICANT LEVEL OF DETECTABLE EBV-VCA IgM AB Performed By: #### 3 1397, 80292, 54227, 76566, 43906 #### [facility] [address] HEMOGLOBIN A1Con 02-12-2022 Glucose [Moles/Vol] 120 mmol/L Normal [facility] Comment on above: Performed By: #### 8 5123, 39826 #### [facility] [address] HbA1c (Bld) [Mass fraction] 5.8 % Normal 4.0-6.0 [facility] Comment on above: Performed By: #### 8 5123, 85667 #### [facility] 3000 [facility]. [address] HEPATITIS A ANTIBODY IGMon 0 02-12-2022 HEP A AB IGM Non-Reactive Normal NONREACTIVE [facility] Comment on above: Performed By: #### 3 1397, 43030, 81917, 31069, 99414 #### [facility] [address] HEPATITIS B CORE ANTIBODYon 02-12-2022 HEP B CORE AB Non-Reactive Normal NONREACTIVE [facility] Comment on above: Performed By: #### 3 1397, 00223, 95172, 26697, 58186 #### [facility] [address] [facility] [place] [address], [facility] HEPATITIS B SURFACE ANTIBODY QUANTon 02-12-2022 HEP B SURF AB 1.14 mIU/ml Normal [facility] Comment on above: Result Comment: INTE RPRETATION: NONREACTIVE<8.00 mIU/mL INDETERMINATE8.00 - 12.00 mIU/mL REACTIVE>12 mIU/mL Performed By: #### 3 1397, 38835, 03034, 98520, 11749 #### [facility] [address] [place] [address], [facility] HEPATITIS B SURFACE ANTIGEN QUALon 02-12-2022 HEP B SURF AG QUAL Non-Reactive Normal NONREACTIVE [facility] Comment on above: Performed By: #### 3 1397, 47132, 64002, 59332, 95564 #### [facility] [address] [facility] [place] [address], [facility] HEPATITIS C ANTIBODYon 02-12 ANTI-HCV Non-Reactive Normal NONREACTIVE [facility] Comment on above: Performed By: #### 3 1397, 14651, 29035, 31022, 61878 #### [facility] [address] [facility] [place] [address], [facility] HIV1 AND 2 COMBO 4Gon 2021 HIV COMBO Negative Normal NEGATIVE [facility] Comment on above: Performed By: #### 3 1397, 78425, 51458, 35048, 27969 #### [facility] [address] [facility] [place] [address], [facility] HLA ABC CLASS I TYPINGon A*-1 EQUIVALENT 1 Normal [facility] Comment on above: Order Comment: Some [...] to frequency. Performed By: #### 3 1397, 97464, 64445, 06468, 79158 #### [facility] [address] [place] [address], [place] A*-2 EQUIVALENT 2 Normal [facility] Comment on above: Order Comment: Some [...] to frequency. Performed By: #### 3 1397, 10345, 57954, 97747, 36976 #### [facility] [address] [facility] [place] [address], [place] B*-1 EQUIVALENT 35 Normal [facility] Comment on above: Order Comment: Some [...] to frequency. Performed By: #### 3 1397, 69314, 70001, 72712, 04170 #### [facility] [address] [place] [address], [place] B*-2 EQUIVALENT 37 Normal [facility] Comment on above: Order Comment: Some [...] to frequency. Performed By: #### 3 1397, 72717, 01021, 02637, 30933 #### [facility] [address] [place] [address], [facility] Bw*-1 EQUIVALENT 4 Normal [facility] Comment on above: Order Comment: Some [...] to frequency. Performed By: #### 3 1397, 95950, 32540, 46235, 69955 #### [facility] [address] [place] [address], [facility] Bw*-2 EQUIVALENT 6 Normal [facility] Comment on above: Order Comment: Some [...] to frequency. Performed By: #### 3 1397, 82868, 23222, 58397, 50494 #### [facility] [address] [place] [address], [facility] C*-1 EQUIVALENT 4 Normal [facility] Comment on above: Order Comment: Some [...] to frequency. Performed By: #### 3 1397, 40414, 82232, 44613, 17498 #### [facility] [address] C*-2 EQUIVALENT 6 Normal [facility] Comment on above: Order Comment: Some [...] to frequency. Performed By: #### 3 1397, 93210, 56101, 96166, 10692 #### [facility] [address] METHOD Class I Typing by PCR-SSOP Luminex Normal [facility] Comment on above: Order Comment: Some [...] to frequency. Performed By: #### 3 1397, 98863, 16603, 91330, 75851 #### [facility] [address] [place] [address], [facility] SIGNED BY Normal [facility] Comment on above: Order Comment: Some [...] to frequency. Result Comment: Sree Noriega, MS,CHT(DONA),MT(ASCP) Lead Bi Developer, Transplant Immunology Performed By: #### 3 1397, 45775, 90489, 15090, 16310 #### [facility] [address] [place] [address], [facility] HLA DR CLASS II TYPINGon DPB1*-1 EQUIVALENT 04:01 Normal [facility] Comment on above: Order Comment: Some [...] to frequency. Performed By: #### 3 1397, 31221, 87370, 16462, 86862 #### [facility] [address] [place] [address], [facility] DPB1*-2 EQUIVALENT 04:02 Normal [facility] Comment on above: Order Comment: Some [...] to frequency. Performed By: #### 3 1397, 56157, 62400, 63228, 16334 #### [facility] [address] [place] [address], [place] DQA1*-1 EQUIVALENT 01 Normal [facility] Comment on above: Order Comment: Some [...] to frequency. Performed By: #### 3 1397, 45083, 38330, 95697, 83591 #### [facility] [address] [place] [address], [place] DQA1*-2 EQUIVALENT 05 Normal [facility] Comment on above: Order Comment: Some [...] to frequency. Performed By: #### 3 1397, 39540, 78855, 27214, 03623 #### [facility] [address] [place] [address], [place] DQB1*-1 EQUIVALENT 7 Normal [facility] Comment on above: Order Comment: Some [...] to frequency. Performed By: #### 3 1397, 16442, 64003, 65172, 65708 #### [facility] [address] [place] [address], [place] DQB1*-2 EQUIVALENT 5 Normal [facility] Comment on above: Order Comment: Some [...] to frequency. Performed By: #### 3 1397, 70884, 74032, 53096, 48991 #### [facility] [address] [place] [address], [facility] DRB1*-1 EQUIVALENT 10 Normal [facility] Comment on above: Order Comment: Some [...] to frequency. Performed By: #### 3 1397, 70619, 28882, 79045, 04467 #### [facility] [address] [facility] [place] [address], [facility] DRB1*-2 EQUIVALENT 11 Normal [facility] Comment on above: Order Comment: Some [...] to frequency. Performed By: #### 3 1397, 75052, 91470, 70242, 40757 #### [facility] [address] [facility] [place] [address], [facility] DRB3*-1 EQUIVALENT 52 Normal [facility] Comment on above: Order Comment: Some [...] to frequency. Performed By: #### 3 1397, 23465, 28667, 48951, 25742 #### [facility] [address] METHOD Class II Typing by PCR-SSOP Luminex Normal [facility] Comment on above: Order Comment: Some [...] to frequency. Performed By: #### 3 1397, 20267, 91911, 91149, 41623 #### [facility] 3000 [facility]. [address] LIPID PROFILEon 02-12-2022 Cholesterol [Mass/Vol] 221 mg/dL High 120-200 [facility] Comment on above: Result Comment: CHOL ESTEROL REFERENCE RANGE: 20 YEARS AND OLDER CARDIOVASCULAR RISK Less than 200 mg/dl Low Risk 200 to 239 mg/dl Borderline Risk 240 mg/dl and greater High Risk Performed By: #### 3 1397, 60755, 27208, 05944, 51625 #### [facility] 3000 [facility] [place] [address], [facility] Cholesterol in HDL [Mass/Vol] 40 mg/dL Normal 23-92 [facility] Comment on above: Result Comment: Slig ht variation in normal range could be due to gender and/or age. HDL CHOLESTEROL REFERENCE RANGE: 20 years and older Cardiovascular Risk > or =60 mg/dL Desirable 40 TO 59 mg/dL Low Risk <40 mg/dL High Risk Performed By: #### 3 1397, 12794, 92826, 07936, 60667 #### [facility] [address] [place] [address], [facility] Cholesterol in LDL [Mass/Vol] 101 mg/dL Normal 0-130 [facility] Comment on above: Result Comment: LDL IS A CALCULATION LDL IS ONLY VALID IF THE TRIG IS LESS THAN 400. Performed By: #### 3 1397, 46886, 49530, 34109, 87907 #### [facility] [address] [place] [address], [facility] Cholesterol.total/Patt sterol in HDL [Mass ratio] 5.5 {ratio} High .0-4.5 [facility] Comment on above: Performed By: #### 3 1397, 95807, 50791, 68857, 35541 #### [facility] [address] [place] [address], [facility] NON-HDL CHOLESTEROL 181 mg/dL Normal [facility] Comment on above: Performed By: #### 3 1397, 78439, 28308, 84309, 80298 #### [facility] [address] Triglyceride [Mass/Vol] 402 mg/dL High 40-149 [facility] Comment on above: Result Comment: TRIG LYCERIDE REFERENCE RANGE: 20 YEARS AND OLDER CARDIOVASCULAR RISK LESS THAN 150 mg/dl LOW RISK 150 TO 199 mg/dl BORDERLINE RISK 200 mg/dl AND GREATER HIGH RISK Performed By: #### 3 1397, 14451, 34023, 05669, 23806 #### [facility] [address] [place] [address], [facility] VLDL CHOL 80 mg/dL High 0-40 [facility] Comment on above: Performed By: #### 3 1397, 45265, 55530, 64318, 72012 #### [facility] [address] [place] [address], [facility] MUMPS IGG BLDon 02-12-2022 MUMPS IGG 5.46 Normal [facility] Comment on above: Result Comment: NORM AL RANGES: < OR = 0.9O NEGATIVE ; NO DETECTABLE IgG ANTIBODY TO MUMPS 0.91 - 1.09 EQUIVOCAL; REPEAT TESTING SUGGESTED > OR = 1.10 POSITIVE ; INDICATES PRESENCE OF DETECTABLE IgG ANTIBODY TO MUMPS Performed By: #### 3 1397, 44688, 14279, 10411, 13306 #### [facility] [address] RUBELLAon 02-12-2022 RUBELLA 4.79 Normal [facility] Comment on above: Result Comment: NORM AL RANGES: < OR = 0.9O NEGATIVE ; NO DETECTABLE IgG ANTIBODY TO RUBELLA 0.91 - 1.09 EQUIVOCAL; REPEAT TESTING SUGGESTED > OR = 1.10 POSITIVE ; INDICATES PRESENCE OF DETECTABLE IgG ANTIBODY TO RUBELLA VIRUS Performed By: #### 3 1397, 43932, 13352, 10829, 19173 #### [facility] [address] RUBEOLA MEASLES IGGon 2021 RUBEO IGG 6.43 Normal [facility] Comment on above: Result Comment: NORM AL RANGES: < OR = 0.9O NEGATIVE ; NO DETECTABLE IgG ANTIBODY TO RUBEOLA 0.91 - 1.09 EQUIVOCAL; REPEAT TESTING SUGGESTED > OR = 1.10 POSITIVE ; INDICATES PRESENCE OF DETECTABLE IgG ANTIBODY TO RUBEOLA Performed By: #### 3 1397, 67149, 51043, 26423, 42121 #### [facility] [address] SINGLE ANTIGEN CLASS 1on METHOD Class I Single Antigen Normal [facility] Comment on above: Order Comment: Some [...] to frequency. Performed By: #### 3 1397, 67440, 36132, 98974, 21177 #### [facility] [address] SINGLE ANTIGEN CLASS 2on COMMENTS Normal [facility] Comment on above: Order Comment: Some [...] watch list. Performed By: #### 3 1397, 07632, 11006, 86843, 71022 #### [facility] 3000 [facility]. [address] Result Comment: Clas s I Antigen Microbeads Potential specificites added to the watch list. CPRA 0 Normal [facility] Comment on above: Order Comment: Some [...] to frequency. Performed By: #### 3 1397, 27110, 16863, 73924, 44483 #### [facility] 3000 [facility] [place] [address], [facility] METHOD Class II Single Antigen Normal T [facility] Comment on above: Order Comment: Some [...] to frequency. Performed By: #### 3 1397, 95195, 92841, 48079, 34790 #### [facility] [address] [place] [address], [facility] T PROT UR Yesy 02-12-2022 U TOTAL PROTEIN 44.0 mg/dL Normal [facility] Comment on above: Result Comment: Ther e are no established reference values for random urine specimens Performed By: #### 3 1397, 89570, 42578, 86280, 75157 #### [facility] [address] [place] [address], [facility] TB QUANTIFERON PLUSon 2021 MITOGEN MINUS NIL >10.00 Normal [facility] Comment on above: Performed By: #### 3 1592 #### [facility] [address] NIL 0.03 IU/mL Normal [facility] Comment on above: Performed By: #### 3 1592 #### [facility] [address] TB QUANTIFERON Negative Normal NEGATIVE [facility] Comment on above: Result Comment: Jadiel tiferon TB Gold Interpretation (IU/mL): NEGATIVE: M. tuberculosis infection not likely. Nil: <=8.0 TB1 Antigen minus Nil ([id number]): <0.35 OR >=0.35; and <25% of Nil value. TB2 Antigen minus Nil ([id number]): <0.35 OR >=0.35; and <25% of Nil [...] (https://www.cdc.gov/tb/publications/guidlines/default.htm Performed By: #### 3 1592 #### [facility] [address] [place] [address], [facility] TB1 AG 0.05 IU/mL Normal [facility] Comment on above: Performed By: #### 3 1592 #### [facility] [address] [place] [address], [place] TB1 AG MINUS NIL 0.02 IU/mL Normal [facility] Comment on above: Performed By: #### 3 1592 #### [facility] [address] [facility] [place] [address], [place] TB2 AG 0.05 IU/mL Normal [facility] Comment on above: Performed By: #### 3 1592 #### [facility] 3000 [facility] [place] [address], [facility] TB2 AG MINUS NIL 0.02 IU/mL Normal [facility] Comment on above: Performed By: #### 3 1592 #### [facility] 3000 [facility] [place] [address], [facility] UA,MICROSCOPIC REQUIREDon Appearance (U) SL CLOUDY Abnormal CLEAR [facility] Comment on above: Performed By: #### 3 1397, 99915, 79500, 81822, 60643 #### [facility] 3000 [facility] [place] [address], [place] Bilirubin Ql (U) Negative Normal NEGATIVE [facility] Comment on above: Performed By: #### 3 1397, 17177, 80812, 23619, 00473 #### [facility] [address] [facility] [place] [address], [facility] Color (U) STRAW Abnormal YELLOW [facility] Comment on above: Performed By: #### 3 1397, 31229, 48070, 66125, 67273 #### [facility] [address] [place] [address], [place] EPIS MANY Abnormal FEW,OCC,NONE SEEN [facility] Comment on above: Performed By: #### 3 1397, 12665, 42035, 36895, 28241 #### [facility] [address] [facility] [place] [address], [facility] Glucose Ql (U) 50 mg/dL Abnormal NEGATIVE [facility] Comment on above: Performed By: #### 3 1397, 36946, 21534, 66734, 08474 #### [facility] [address] [facility] [place] [address], [facility] Hemoglobin Ql (U) Negative Normal NEGATIVE [facility] Comment on above: Performed By: #### 3 1397, 31481, 74378, 85365, 64813 #### [facility] 3000 [facility] [place] [address], [facility] KETONE Negative Normal NEGATIVE [facility] Comment on above: Performed By: #### 3 1397, 80160, 47233, 87098, 45305 #### [facility] 3000 [facility]. [address] LEUK MARYAN MODERATE Abnormal NEGATIVE [facility] Comment on above: Performed By: #### 3 1397, 09293, 98756, 86456, 00001 #### [facility] [address] [facility] [place] [address], [facility] Nitrite Ql (U) Negative Normal NEGATIVE [facility] Comment on above: Performed By: #### 3 1397, 15326, 39906, 32393, 67278 #### [facility] 3000 [facility] [place] [address], [facility] pH (U) 7.0 [pH] Normal 5.0-8.0 [facility] Comment on above: Performed By: #### 3 1397, 96047, 64364, 50747, 69685 #### [facility] 3000 [facility] [place] [address], [facility] Protein Ql (U) 30 mg/dL Abnormal NEGATIVE [facility] Comment on above: Performed By: #### 3 1397, 05442, 23945, 20553, 03418 #### [facility] [address] [facility] [place] [address], [facility] RBC NONE SEEN Normal NONE SEEN [facility] Comment on above: Performed By: #### 3 1397, 36609, 24946, 71225, 49292 #### [facility] 3000 [facility]. [address] SPEC GRAV 1.009 Low 1.015-1.020 [facility] Comment on above: Performed By: #### 3 1397, 19871, 25156, 60012, 55065 #### [facility] [address] [facility] [place] [address], [facility] WBC UA 11-20 Abnormal NONE SEEN [facility] Comment on above: Performed By: #### 3 1397, 43890, 96239, 90563, 64388 #### [facility] 3000 [facility]. [address] VARICELLA ZOSTER IGGon 02-12 VARICELLA IGG 3.29 Normal [facility] Comment on above: Result Comment: NORM AL RANGES: < OR = 0.9O NEGATIVE ; NO DETECTABLE IgG ANTIBODY TO VARICELLA-ZOSTER VIRUS 0.91 - 1.09 EQUIVOCAL; REPEAT TESTING SUGGESTED > OR = 1.10 POSITIVE ; INDICATES PRESENCE OF DETECTABLE IgG ANTIBODY TO VARICELLA-ZOSTER VIRUS Performed By: #### 3 1397, 33117, 71443, 69593, 02057 #### [facility] 3000 [facility]. [address] PTH INTACTon 12-04-2021 PTH, Intact 165 pg/mL Critically high 15-65 The [facility] Comment on above: Performed By: #### M Edy, URIC, RENAL #### [facility] Laboratory [address] [place] [address] Dr. Hari Palmer FERRITINon 12-03-2021 Ferritin [Mass/Vol] 256.0 ng/mL Critically high 6.2-137.0 [facility] [place] Comment on above: Performed By: #### Xiomara G, URIC, RENAL #### [facility] Laboratory [address] [place] [address] Dr. Hari Palmer HEMOGRAM AND PLATELon 2021 Hematocrit (Bld) [Volume fraction] 33.7 % Critically low 36.0-48.0 [facility] [place] Comment on above: Performed By: #### M G, URIC, RENAL #### [facility] Laboratory [address] [place] [address] Dr. Hari Palmer Hemoglobin (Bld) [Mass/Vol] 10.9 g/dL Critically low 12.0-16.0 [facility] [place] Comment on above: Performed By: #### M G, URIC, RENAL #### [facility] Laboratory [address] [place] [address] Dr. Hari Palmer MCH (RBC) [Entitic mass] 31.4 pg Normal 26.7-34.0 [facility] [place] Comment on above: Performed By: #### M G, URIC, RENAL #### [facility] Laboratory [address] [place] [address] Dr. Hari Palmer MCHC (RBC) [Mass/Vol] 32.3 g/dL Normal 29.9-35.2 The [facility] Comment on above: Performed By: #### M G, URIC, RENAL #### [facility] Laboratory [address] [place] [address] Dr. Hari Palmer MCV (RBC) [Entitic vol] 97.1 fL Normal 81.0-99.0 [facility] Comment on above: Performed By: #### M G, URIC, RENAL #### [facility] Laboratory [address] [place] [address] Dr. Hari Palmer PLT 314 103/ul Normal 150-450 The [facility] Comment on above: Performed By: #### M G, URIC, RENAL #### [facility] Laboratory [address] [place] [address] Dr. Hari Palmer RBC 3.47 106/ul Critically low 4.20-5.40 [facility] [place] Comment on above: Performed By: #### M G, URIC, RENAL #### [facility] Laboratory [address] [place] [address] Dr. Hari Palmer WBC 9.4 103/ul Normal 4.0-11.0 The [facility] Comment on above: Performed By: #### M Edy, URIC, RENAL #### [facility] Laboratory [address] [place] [address] Dr. Hari Palmer IRON AND TIBCon 12-03-2021 % SATURATION 19.0 % Normal The [facility] Comment on above: Performed By: #### M Edy, URIC, RENAL #### [facility] Laboratory [address] [place] [address] Dr. Hari Palmer Iron [Mass/Vol] 52.0 ug/dL Normal 37.0-170.0 The [facility] Comment on above: Performed By: #### M Edy, URIC, RENAL #### [facility] Laboratory [address] [place] [address] Dr. Hari Palmer TIBC DIRECT 273.0 ug/dL Normal 261.0-497.0 The [facility] Comment on above: Performed By: #### M Edy, URIC, RENAL #### [facility] Laboratory [address] [place] [address] Dr. Hari Palmer MAGNESIUMon 12-03-2021 Magnesium [Mass/Vol] 2.1 mg/dL Normal 1.6-2.3 The [facility] Comment on above: Performed By: #### M Edy, URIC, RENAL #### [facility] Laboratory [address] [place] [address] Dr. Hari Palmer RENAL FUNCTION PANELon 12-03 Albumin [Mass/Vol] 3.6 g/dL Normal 3.5-5.0 The [facility] Comment on above: Performed By: #### M Edy, URIC, RENAL #### [facility] Laboratory [address] [place] [address] Dr. Hari Palmer Calcium [Mass/Vol] 8.4 mg/dL Normal 8.4-10.2 The [facility] Comment on above: Performed By: #### M G, URIC, RENAL #### [facility] Laboratory [address] [place] [address] Dr. Hari Palmer Chloride [Moles/Vol] 101 mmol/L Normal 98-107 The [facility] Comment on above: Performed By: #### M G, URIC, RENAL #### [facility] Laboratory [address] [address] [address] Hari Palmer CO2 [Moles/Vol] 24.3 mmol/L Normal 22.0-30.0 [facility] [place] Comment on above: Performed By: #### M G, URIC, RENAL #### [facility] Laboratory [address] [place] [address] Dr. Hari Palmer Creatinine [Mass/Vol] 3.32 mg/dL Critically high 0.52-1.04 [facility] [place] Comment on above: Performed By: #### M G, URIC, RENAL #### [facility] Laboratory [address] [place] [address] Dr. Hari Palmer EGFR-AF SCOTTISH 18 mL/min/1.73m2 Critically low >=60 [facility] [place] Comment on above: Performed By: #### M G, URIC, RENAL #### [facility] Laboratory [address] [place] [address] Dr. Hari Palmer EGFR-NON AF SCOTTISH 15 mL/min/1.73m2 Critically low >=60 [facility] [place] Comment on above: Performed By: #### M G, URIC, RENAL #### [facility] Laboratory [address] [place] [address] Dr. Hari Palmer Glucose [Mass/Vol] 119 mg/dL Critically high 74-106 T [facility] Comment on above: Performed By: #### M G, URIC, RENAL #### [facility] Laboratory [address] [place] [address] Dr. Hari Palmer Phosphate [Mass/Vol] 4.7 mg/dL Critically high 2.5-4.5 [facility] [place] Comment on above: Performed By: #### M G, URIC, RENAL #### [facility] Laboratory [address] [place] [address] Dr. Hari Palmer Potassium [Moles/Vol] 4.0 mmol/L Normal 3.4-5.0 [facility] [place] Comment on above: Performed By: #### M G, URIC, RENAL #### [facility] Laboratory [address] [place] [address] Dr. Hari Palmer Sodium [Moles/Vol] 135 mmol/L Critically low 137-145 Th e [facility] Comment on above: Performed By: #### M G, URIC, RENAL #### [facility] Laboratory [address] [place] [address] Dr. Hari Palmer Urea nitrogen [Mass/Vol] 42.0 mg/dL Critically high 7.0-17.0 [facility] [place] Comment on above: Performed By: #### M G, URIC, RENAL #### [facility] Laboratory [address] [place] [address] Dr. Hari Palmer UA RANDOM W/MICROSCOPICon BACTERIA TRACE Abnormal NONE SEEN The [facility] Comment on above: Performed By: #### U AMIC #### [facility] Laboratory [address] [place] [address] Dr. Hari Palmer Bilirubin Ql (U) Negative Normal NEGATIVE The [facility] Comment on above: Performed By: #### U AMIC #### [facility] Laboratory [address] [place] [address] Dr. Hari Palmer CAST NONE SEEN Normal NONE SEEN The [facility] Comment on above: Performed By: #### U AMIC #### [facility] Laboratory [address] [place] [address] Dr. Hari Palmer Clarity (U) CLEAR Normal CLEAR The [facility] Comment on above: Performed By: #### U AMIC #### [facility] Laboratory [address] [place] [address] Dr. Hari Palmer Color (U) LT. YELLOW Normal YELLOW The [facility] Comment on above: Performed By: #### U AMIC #### [facility] Laboratory [address] [place] [address] Dr. Hari Palmer Crystals LM Nom (Urine sed) NONE SEEN Normal NONE SEEN The [facility] Comment on above: Performed By: #### U AMIC #### [facility] Laboratory [address] [place] [address] Dr. Hari Palmer Epithelial cells LM Ql (Urine sed) FEW Abnormal NONE SEEN /RARE The [facility] Comment on above: Performed By: #### U AMIC #### [facility] Laboratory [address] [place] [address] Dr. Hari Palmer Glucose Ql (U) 100 mg/dl Abnormal NEGATIVE The [facility] Comment on above: Performed By: #### U AMIC #### [facility] Laboratory [address] [place] [address] Dr. Hari Palmer Hemoglobin Ql (U) TRACE-INTACT Abnormal NEGATIVE The [facility] Comment on above: Performed By: #### U AMIC #### [facility] Laboratory [address] [address] [address] Hari Palmer Ketones Ql (U) Negative Normal NEGATIVE The [facility] Comment on above: Performed By: #### U AMIC #### [facility] Laboratory [address] [place] [address] Dr. Hari Palmer LEUKOCYTES SMALL Abnormal NEGATIVE [facility] [place] Comment on above: Performed By: #### U AMIC #### [facility] Laboratory [address] [place] [address] Dr. Hari Palmer MUCOUS NONE SEEN Normal NONE SEEN The [facility] Comment on above: Performed By: #### U AMIC #### [facility] Laboratory [address] [place] [address] Dr. Hari Palmer Nitrite Ql (U) Negative Normal NEGATIVE The [facility] Comment on above: Performed By: #### U AMIC #### [facility] Laboratory [address] [place] [address] Dr. Hari Palmer pH (U) 6.0 [pH] Normal 5-9 The [facility] Comment on above: Performed By: #### U AMIC #### [facility] Laboratory [address] [place] [address] Dr. Hari Palmer RBC 0-2 Normal 0-2 The [facility] Comment on above: Performed By: #### U AMIC #### [facility] Laboratory [address] [place] [address] Dr. Hari Palmer SPEC GRAVITY 1.010 Normal 1.005-<=1.02 5 [facility] [place] Comment on above: Performed By: #### U AMIC #### [facility] Laboratory [address] [place] [address] Dr. Hari Palmer UA PROTEIN Negative Normal NEGATIVE/ TRACE The [facility] Comment on above: Performed By: #### U AMIC #### [facility] Laboratory [address] [place] [address] Dr. Hari Palmer Urobilinogen Qn (U) 0.2 {Janice'U}/dL Normal 0.2 - 1. 0 [facility] Comment on above: Performed By: #### U AMIC #### [facility] Laboratory [address] [place] [address] Dr. Hari Palmer WBC 5-10 Abnormal NONE SEEN [facility] [place] Comment on above: Performed By: #### U AMIC #### [facility] Laboratory [address] [place] [address] Dr. Hari Palmer URIC ACID SERUMon 12-03-2021 Urate [Mass/Vol] 4.6 mg/dL Normal 2.5-6.2 [facility] Comment on above: Performed By: #### M G, URIC, RENAL #### [facility] Laboratory [address] [place] [address] Dr. Hari Palmer URINE T PROTEIN CREAT RATIOo n 12-03-2021 Protein (U) [Mass/Vol] 31.7 mg/dL Critically high <=12.0 [facility] Comment on above: Performed By: #### M G, URIC, RENAL #### [facility] Laboratory [address] [place] [address] Dr. Hari Palmer UR PROT CREAT RAT 0.54 Normal [facility] [place] Comment on above: Performed By: #### M G, URIC, RENAL #### [facility] [place] Laboratory [address] [place] [address] Dr. Hari Palmer URINE CREAT 59.03 mg/dL Normal 20.00-300.00 [facility] [place] Comment on above: Performed By: #### M G, URIC, RENAL #### [facility] [place] Laboratory [address] [place] [address] Dr. Hari Palmer VITAMIN D 25 OHon 12-03-2021 VIT D 25-OH 38.1 ng/mL Normal [facility] [place] Comment on above: Performed By: #### M G, URIC, RENAL #### [facility] Laboratory [address] [place] [address] Dr. Hari Palmer VIT D RANGES SEE BELOW Normal [facility] [place] Comment on above: Result Comment: <20 ng/mL Vit D deficient 20 - <30 ng/mL Vit D insufficient 30 - 100 ng/mL Vit D sufficient >100 ng/mL Potential Toxicity Performed By: #### M G, URIC, RENAL #### [facility] Laboratory [address] [place] [address] Dr. Hari Palmer PTH INTACTon 09-03-2021 PTH, Intact 177 pg/mL Critically high 15-65 [facility] Comment on above: Performed By: #### P THINT #### [facility] [place] Laboratory [address] [place] [address] Dr. Hari Palmer CBC AUTO DIFFon 09-01-2021 BASO # 0.1 103/ul Normal 0.0-0.1 [facility] Comment on above: Performed By: #### M G, URIC, RENAL #### [facility] [place] Laboratory [address] [place] [address] Dr. Hari Palmer Basophils/100 WBC (Bld) 0.6 % Normal 0.2-2.0 [facility] Comment on above: Performed By: #### M G, URIC, RENAL #### [facility] [place] Laboratory [address] [place] [address] Dr. Hari Palmer EO # 0.3 103/ul Normal 0.0-0.7 [facility] Comment on above: Performed By: #### M G, URIC, RENAL #### [facility] [place] Laboratory [address] [place] [address] Dr. Hari Palmer Eosinophils/100 WBC (Bld) 3.5 % Normal 0.9-7.0 [facility] Comment on above: Performed By: #### M G, URIC, RENAL #### [facility] [place] Laboratory [address] [place] [address] Dr. Hari Palmer Erythrocyte distribution width (RBC) [Ratio] 13.8 % Normal 11.0-15.0 [facility] Comment on above: Performed By: #### M G, URIC, RENAL #### [facility] [place] Laboratory [address] [address] [address] Hari Palmer Hematocrit (Bld) [Volume fraction] 32.8 % Critically low 36.0-48.0 [facility] Comment on above: Performed By: #### M G, URIC, RENAL #### [facility] [place] Laboratory [address] [address] [address] Hari Palmer Hemoglobin (Bld) [Mass/Vol] 10.6 g/dL Critically low 12.0-16.0 [facility] Comment on above: Performed By: #### M G, URIC, RENAL #### [facility] [place] Laboratory [address] [place] [address] Dr. Hari Palmer IG # 0.14 10e3/ul Critically high 0.00-0.03 [facility] Comment on above: Performed By: #### M G, URIC, RENAL #### [facility] Laboratory [address] [place] [address] Dr. Hari Palmer IG % 1.5 % Critically high 0.0-0.5 [facility] Comment on above: Performed By: #### M G, URIC, RENAL #### [facility] Laboratory [address] [place] [address] Dr. Hari Palmer LYMPH # 1.8 103/ul Normal 1.2-3.8 [facility] Comment on above: Performed By: #### M G, URIC, RENAL #### [facility] [place] Laboratory [address] [address] [address] Hari Palmer Lymphocytes/100 WBC (Bld) 19.3 % Critically low 20.5-60.0 [facility] Comment on above: Performed By: #### M G, URIC, RENAL #### [facility] [place] Laboratory [address] [address] [address] Hari Palmer MANUAL DIFF REQ NO Normal [facility] [place] Comment on above: Performed By: #### M G, URIC, RENAL #### [facility] Laboratory [address] [place] [address] Dr. Hari Palmer MCH (RBC) [Entitic mass] 31.4 pg Normal 26.7-34.0 [facility] Comment on above: Performed By: #### M G, URIC, RENAL #### [facility] [place] Laboratory [address] [place] [address] Dr. Hari Palmer [facility] ([facility] [Mass/Vol] 32.3 g/dL Normal 29.9-35.2 [facility] Comment on above: Performed By: #### M G, URIC, RENAL #### [facility] Laboratory [address] [place] [address] Dr. Hari Palmer MCV (RBC) [Entitic vol] 97.0 fL Normal 81.0-99.0 [facility] Comment on above: Performed By: #### M G, URIC, RENAL #### [facility] Laboratory [address] [place] [address] Dr. Hari Palmer MONO # 0.4 103/ul Normal 0.3-0.8 [facility] Comment on above: Performed By: #### M G, URIC, RENAL #### [facility] Laboratory [address] [place] [address] Dr. Hari Palmer Monocytes/100 WBC (Bld) 4.2 % Normal 1.7-12.0 [facility] Comment on above: Performed By: #### M G, URIC, RENAL #### [facility] [place] Laboratory [address] [place] [address] Dr. Hari Palmer NEUT # 6.5 103/ul Normal 1.4-6.5 [facility] Comment on above: Performed By: #### M G, URIC, RENAL #### [facility] [place] Laboratory [address] [place] [address] Dr. Hari Palmer Neutrophils/100 WBC (Bld) 70.9 % Normal 43.0-75.0 [facility] Comment on above: Performed By: #### M G, URIC, RENAL #### [facility] Laboratory [address] [place] [address] Dr. Hari Palmer Platelet mean volume (Bld) [Entitic vol] 9.0 fL Critically low 9.5-13.5 [facility] Comment on above: Performed By: #### M G, URIC, RENAL #### [facility] [place] Laboratory [address] [address] [address] Hari Palmer PLT 289 103/ul Normal 150-450 [facility] Comment on above: Performed By: #### M G, URIC, RENAL #### [facility] Laboratory [address] [address] [address] Hari Palmer RBC 3.38 106/ul Critically low 4.20-5.40 [facility] [place] Comment on above: Performed By: #### M G, URIC, RENAL #### [facility] Laboratory [address] [address] [address] Hari Palmer WBC 9.1 103/ul Normal 4.0-11.0 [facility] Comment on above: Performed By: #### M Edy, URIC, RENAL #### [facility] [place] Laboratory [address] [place] [address] Dr. Hari Palmer FERRITINon 09-01-2021 Ferritin [Mass/Vol] 204.0 ng/mL Critically high 6.2-137.0 [facility] Comment on above: Performed By: #### M Edy, URIC, RENAL #### [facility] Laboratory [address] [place] [address] Dr. Hari Palmer IRON AND TIBCon 09-01-2021 % SATURATION 28.4 % Normal [facility] [place] Comment on above: Performed By: #### M G, URIC, RENAL #### [facility] Laboratory [address] [place] [address] Dr. Hari Palmer Iron [Mass/Vol] 80.0 ug/dL Normal 37.0-170.0 [facility] [place] Comment on above: Performed By: #### M G, URIC, RENAL #### [facility] Laboratory [address] [place] [address] Dr. Hari Palmer TIBC DIRECT 282.0 ug/dL Normal 261.0-497.0 [facility] [place] Comment on above: Performed By: #### M G, URIC, RENAL #### [facility] [place] Laboratory [address] [place] [address] Dr. Hari Palmer MAGNESIUMon 09-01-2021 Magnesium [Mass/Vol] 2.2 mg/dL Normal 1.6-2.3 [facility] [place] Comment on above: Performed By: #### U AMIC #### [facility] Laboratory [address] [place] [address] Dr. Hari Palmer RENAL FUNCTION PANELon 09-01 Albumin [Mass/Vol] 3.5 g/dL Normal 3.5-5.0 [facility] Comment on above: Performed By: #### M G, URIC, RENAL #### [facility] Laboratory [address] [place] [address] Dr. Hari Palmer Calcium [Mass/Vol] 8.7 mg/dL Normal 8.4-10.2 [facility] [place] Comment on above: Performed By: #### M G, URIC, RENAL #### [facility] [place] Laboratory [address] [place] [address] Dr. Hari Palmer Chloride [Moles/Vol] 105 mmol/L Normal 98-107 [facility] [place] Comment on above: Performed By: #### M G, URIC, RENAL #### [facility] Laboratory [address] [place] [address] Dr. Hari Palmer CO2 [Moles/Vol] 21.1 mmol/L Critically low 22.0-30.0 [facility] [place] Comment on above: Performed By: #### M G, URIC, RENAL #### [facility] Laboratory [address] [place] [address] Dr. Hari Palmer Creatinine [Mass/Vol] 3.63 mg/dL Critically high 0.52-1.04 [facility] [place] Comment on above: Performed By: #### M G, URIC, RENAL #### [facility] Laboratory [address] [place] [address] Dr. Hari Palmer EGFR-AF SCOTTISH 16 mL/min/1.73m2 Critically low >=60 [facility] [place] Comment on above: Performed By: #### M G, URIC, RENAL #### [facility] Laboratory [address] [place] [address] Dr. Hari Palmer EGFR-NON AF SCOTTISH 14 mL/min/1.73m2 Critically low >=60 [facility] [place] Comment on above: Performed By: #### M G, URIC, RENAL #### [facility] Laboratory [address] [address] [address] Hari Palmer Glucose [Mass/Vol] 115 mg/dL Critically high 74-106 [facility] Comment on above: Performed By: #### M G, URIC, RENAL #### [facility] Laboratory [address] [place] [address] Dr. Hari Palmer Phosphate [Mass/Vol] 4.6 mg/dL Critically high 2.5-4.5 [facility] Comment on above: Performed By: #### M G, URIC, RENAL #### [facility] Laboratory [address] [place] [address] Dr. Hari Palmer Potassium [Moles/Vol] 4.2 mmol/L Normal 3.4-5.0 [facility] [place] Comment on above: Performed By: #### M G, URIC, RENAL #### [facility] Laboratory [address] [place] [address] Dr. Hari Palmer Sodium [Moles/Vol] 138 mmol/L Normal 137-145 [facility] [place] Comment on above: Performed By: #### M G, URIC, RENAL #### [facility] Laboratory [address] [place] [address] Dr. Hari Palmer Urea nitrogen [Mass/Vol] 50.0 mg/dL Critically high 7.0-17.0 [facility] Comment on above: Performed By: #### M G, URIC, RENAL #### [facility] Laboratory [address] [place] [address] Dr. Hari Palmer UA RANDOM W/MICROSCOPICon BACTERIA SMALL Abnormal NONE SEEN [facility] Comment on above: Performed By: #### U AMIC #### [facility] Laboratory [address] [place] [address] Dr. Hari Palmer Bilirubin Ql (U) Negative Normal NEGATIVE [facility] Comment on above: Performed By: #### U AMIC #### [facility] Laboratory [address] [place] [address] Dr. Hari Palmer CAST NONE SEEN Normal NONE SEEN [facility] Comment on above: Performed By: #### U AMIC #### [facility] Laboratory [address] [place] [address] Dr. Hari Palmer Clarity (U) CLEAR Normal CLEAR [facility] Comment on above: Performed By: #### U AMIC #### [facility] Laboratory [address] [address] [address] Hari Palmer Color (U) LT. YELLOW Normal YELLOW [facility] Comment on above: Performed By: #### U AMIC #### [facility] Laboratory [address] [place] [address] Dr. Hari Palmer Crystals LM Nom (Urine sed) NONE SEEN Normal NONE SEEN [facility] Comment on above: Performed By: #### U AMIC #### [facility] Laboratory [address] [place] [address] Dr. Hari Palmer Epithelial cells LM Ql (Urine sed) MODERATE Abnormal NONE SEEN /RARE [facility] Comment on above: Performed By: #### U AMIC #### [facility] Laboratory [address] [place] [address] Dr. Hari Palmer Glucose Ql (U) Negative Normal NEGATIVE [facility] Comment on above: Performed By: #### U AMIC #### [facility] Laboratory [address] [place] [address] Dr. Hari Palmer Hemoglobin Ql (U) TRACE-INTACT Abnormal NEGATIVE [facility] Comment on above: Performed By: #### U AMIC #### [facility] Laboratory [address] [place] [address] Dr. Hari Palmer Ketones Ql (U) Negative Normal NEGATIVE [facility] Comment on above: Performed By: #### U AMIC #### [facility] Laboratory [address] [place] [address] Dr. Hari Palmer LEUKOCYTES Negative Normal NEGATIVE [facility] Comment on above: Performed By: #### U AMIC #### [facility] Laboratory [address] [place] [address] Dr. Hari Palmer MUCOUS NONE SEEN Normal NONE SEEN [facility] Comment on above: Performed By: #### U AMIC #### [facility] Laboratory [address] [place] [address] Dr. Hari Palmer Nitrite Ql (U) Negative Normal NEGATIVE [facility] Comment on above: Performed By: #### U AMIC #### [facility] [place] Laboratory [address] [address] [address] Hari Palmer pH (U) 6.0 [pH] Normal 5-9 [facility] [place] Comment on above: Performed By: #### U AMIC #### [facility] Laboratory [address] [place] [address] Dr. Hari Palmer RBC 2-5 Abnormal 0-2 [facility] Comment on above: Performed By: #### U AMIC #### [facility] Laboratory [address] [place] [address] Dr. Hari Palmer SPEC GRAVITY 1.010 Normal 1.005-<=1.02 5 [facility] Comment on above: Performed By: #### U AMIC #### [facility] Laboratory [address] [place] [address] Dr. Hari Palmer UA PROTEIN Negative Normal NEGATIVE/ TRACE [facility] Comment on above: Performed By: #### U AMIC #### [facility] Laboratory [address] [place] [address] Dr. Hari Palmer Urobilinogen Qn (U) 0.2 {Janice'U}/dL Normal 0.2 - 1. 0 [facility] Comment on above: Performed By: #### U AMIC #### [facility] Laboratory [address] [place] [address] Dr. Hari Palmer WBC 2-5 Abnormal NONE SEEN [facility] [place] Comment on above: Performed By: #### U AMIC #### [facility] Laboratory [address] [place] [address] Dr. Hari Palmer URIC ACID SERUMon 09-01-2021 Urate [Mass/Vol] 4.9 mg/dL Normal 2.5-6.2 [facility] Comment on above: Performed By: #### U AMIC #### [facility] Laboratory [address] [place] [address] Dr. Hari Palmer URINE T PROTEIN CREAT RATIOo n 09-01-2021 Protein (U) [Mass/Vol] 22.2 mg/dL Critically high <=12.0 [facility] Comment on above: Performed By: #### M G, URIC, RENAL #### [facility] Laboratory [address] [place] [address] Dr. Hari Palmer UR PROT CREAT RAT 0.47 Normal [facility] Comment on above: Performed By: #### M G, URIC, RENAL #### [facility] Laboratory [address] [place] [address] Dr. Hari Palmer URINE CREAT 46.89 mg/dL Normal 20.00-300.00 [facility] Comment on above: Performed By: #### M G, URIC, RENAL #### [facility] Laboratory [address] [place] [address] Dr. Hari Palmer VITAMIN D 25 OHon 09-01-2021 VIT D 25-OH 40.5 ng/mL Normal [facility] Comment on above: Performed By: #### M G, URIC, RENAL #### [facility] Laboratory [address] [place] [address] Dr. Hari Palmer VIT D RANGES SEE BELOW Normal [facility] Comment on above: Result Comment: <20 ng/mL Vit D deficient 20 - <30 ng/mL Vit D insufficient 30 - 100 ng/mL Vit D sufficient >100 ng/mL Potential Toxicity Performed By: #### M Edy, URIC, RENAL #### [facility] Laboratory [address] [place] [address] Dr. Hari Palmer CNOVon 03-30-2021 CNOV Office Visit (NEPHMN ) -------- MANDEEP PURI ([id number]) 1975 F Date Time Provider Department 03/30/21 9:20 AM PERRI BARRETT During your visit today, we recorded the following information about you: Temperature Pulse Blood pressure Weight 98.2 degrees 75/minute 122/77 93 kg Height 1.549 m Perri Barrett MD 03/30/2021 10:25 AM Signed Mrs. 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 (more content not included)... Normal [facility] Urinalysison 03-30-2021 Bilirubin, Urine Negative Normal Negative [facility] Comment on above: Performed By: #### U A #### [facility] [address] [address] Clarity (U) Clear Normal Clear [facility] Comment on above: Performed By: #### U A #### [facility] [address] [phone] Color (U) Colorless Critically abnormal Yellow [facility] Comment on above: Performed By: #### U A #### [facility] [address] [address] Comments SEE COMMENT Normal [facility] Comment on above: Result Comment: Micr oscopic not warranted Performed By: #### U A #### [facility] [address] [address] Glucose Ql (U) Trace Critically abnormal Negative [facility] Comment on above: Performed By: #### U A #### [facility] [address] [place], [place] [address] Hemoglobin/Blood,Ur Negative Normal Negative [facility] Comment on above: Performed By: #### U A #### [facility] [address] [place], [place] [address] Ketones Ql (U) Negative Normal Negative [facility] Comment on above: Performed By: #### U A #### [facility] [address] [place], [place] [address] Leukest Negative Normal Negative [facility] Comment on above: Performed By: #### U A #### [id number] [address] Nitrite Ql (U) Negative Normal Negative [facility] Comment on above: Performed By: #### U A #### [id number] [address] pH (U) 6.5 [pH] Normal 5.0-8.0 [facility] Comment on above: Performed By: #### U A #### [id number] [place], [place] [address] Protein, Urine Negative Normal Negative [facility] Comment on above: Performed By: #### U A #### [facility] [address] [place], [place] [address] Specific [place], Ur 1.008 Normal 1.005-1.030 [facility] Comment on above: Performed By: #### U A #### [facility] [address] [place], [place] [address] Urine Codi Comment SEE COMMENT Normal [facility] Comment on above: Result Comment: N/A Performed By: #### U A #### [facility] [address] [place], [place] [address] Urobilinogen (U) [Mass/Vol] Negative Normal Negative [facility] Comment on above: Performed By: #### U A #### [facility] [address] [place], [place] [address] Coding Summary.on 04-21-2020 Coding Summary. CODING DATE: 020 [facility] STATUS: Home (Routine DC) PAYOR: Medical [place] ADMIT DX: REASON FOR VISIT DX: Z20.828 [...] Saved: 04/21/2020 05:17 pm Normal [facility] Physician Orderon 04-21-2020 Physician Order [id number]: 127 Normal [facility] Marci 04-12-2020 ALT [Catalytic activity/Vol] 14 U/L Normal 7 - 45 [facility] Comment on above: Result Comment: Kelsea ents treated with Sulfasalazine may generate falsely decreased results for ALT. Performed By: #### A LT #### [facility] [address] [place] [address] Ronald 04-12-2020 AST [Catalytic activity/Vol] 16 U/L Normal 9 - 39 [facility] Comment on above: Performed By: #### A ST #### [facility] [address] [place] [address] CREATININEon 04-12-2020 Creatinine [Mass/Vol] 2.83 mg/dL High 0.50 - 1.05 [facility] Comment on above: Performed By: #### C REAT #### [facility] [address] [place] [address] Creatinine [Mass/Vol] 18 mL/min/1.73m2 Abnormal >60 [facility] Comment on above: Performed By: #### C REAT #### C [address] [place] [address] Creatinine [Mass/Vol] 22 mL/min/1.73m2 Abnormal >60 [facility] Comment on above: Result Comment: CALC ULATIONS OF ESTIMATED GFR ARE PERFORMED USING THE MDRD STUDY EQUATION FOR THE IDMS-TRACEABLE CREATININE METHODS. CLIN CHEM 2007;53:766-72 Performed By: #### C REAT #### [facility] [address] [place] [address] URIC ACIDon 04-12-2020 Urate [Mass/Vol] 5.2 mg/dL Normal 2.3 - 6.7 [facility] Comment on above: Result Comment: Beti puncture immediately after or during the administration of Metamizole may lead to falsely low results. Testing should be performed immediately prior to Metamizole dosing. Performed By: #### U DASHAWN #### [facility] [address] [place] [address] URIC ACIDon 02-11-2020 Urate [Mass/Vol] 8.2 mg/dL High 2.3 - 6.7 [facility] Comment on above: Result Comment: Beti puncture immediately after or during the administration of Metamizole may lead to falsely low results. Testing should be performed immediately prior to Metamizole dosing. Performed By: #### U DASHAWN #### [facility] [address] [place] [address] Cult,Urineon 08-04-2019 Cult,Urine Specimen Description .CLEAN CATCH URINE Special Requests NOT REPORTED Culture ESCHERICHIA COLI >[id number] CFU/ML Report Status FINAL 08/04/2019 SUSCEPTIBILITY Organism [...] Trimethoprim/Sulfa <=20 SUSCEPTIBLE Piperacillin/Tazobactam <=4 SUSCEPTIBLE Normal [facility] Comment on above: Performed By: #### D CITLALY, LIP, CMPX, TROPI, BNP, CDP, PT #### [facility] [address] [place], [place] [id number] Band Manager: Sami Dominguez MD Brain Natri. Peptideon 08-02 Natriuretic peptide B (Bld) [Mass/Vol] 152 pg/mL Normal <300 [facility] Comment on above: Result Comment: Pro- BNP results cannot be compared to BNP results. Performed By: #### D CITLALY, LIP, CMPX, TROPI, BNP, CDP, PT #### [facility] [address] [place], [place] [id number] Band Manager: Sami Dominguez MD Natriuretic peptide B (Bld) [Mass/Vol] Pro-BNP Reference Range: Normal [facility] Comment on above: Result Comment: Rule Out: <300 Parra Zone: Age <50 300-450 Age 50-75 300-900 Age >75 300-1800 Usually represents mild to moderate HF but other cardiopulmonary causes cannot be ruled out. Rule In: Age <50 >450 Age 50-75 >900 Age >75 >1800 Performed By: #### D CITLALY, LIP, CMPX, TROPI, BNP, CDP, PT #### [facility] [address] [place], [place] [id number] Band Manager: Sami Dominguez MD Brain Natriuretic Peptideon 08-02-2019 Natriuretic peptide B (Bld) [Mass/Vol] 152 pg/mL <300 [facility] [place] Comment on above: Pro-BNP results eric ot be compared to BNP results. Natriuretic peptide B (Bld) [Mass/Vol] Pro-BNP Reference Range: [facility] [place] Comment on above: Rule Out: <300 Parra Zone: Age <50 300-450 Age 50-75 300-900 Age >75 300-1800 Usually represents mild to moderate HF but other cardiopulmonary causes cannot be ruled out. Rule In: Age <50 >450 Age 50-75 >900 Age >75 >1800 CBC Auto Differentialon 10-2 8-2019 Basophils (Bld) [#/Vol] 0.00 10*3/uL [place] Basophils/100 WBC (Bld) 0 % 0 - 2 % M [place] Differential Type NOT REPORTED [place] Eosinophils (Bld) [#/Vol] 0.08 10*3/uL [place] Eosinophils/100 WBC (Bld) 1 % 1 - 4 % [place] Erythrocyte distribution width (RBC) [Ratio] 13.2 % 11.8 - 14.4 % [place] Hematocrit (Bld) [Volume fraction] 33.7 % Low 36.3 - 47.1 % [place] Hemoglobin (Bld) [Mass/Vol] 10.7 g/dL Low 11.9 - 15.1 g/dL [place] Immature granulocytes (Bld) [#/Vol] 0 % 0 [place] Immature granulocytes (Bld) [#/Vol] 0.00 10*3/uL [place] Interpretation and review of laboratory results Abnormal [place] Lymphocytes (Bld) [#/Vol] 0.90 10*3/uL Low [place] Lymphocytes/100 WBC (Bld) 12 % Low 24 - 43 % [place] MCH (RBC) [Entitic mass] 30.2 pg 25.2 - 33.5 pg [place] MCHC (RBC) [Mass/Vol] 31.8 g/dL 28.4 - 34.8 g/dL [place] MCV (RBC) [Entitic vol] 95.2 fL 82.6 - 102.9 fL [place] Monocytes (Bld) [#/Vol] 0.00 10*3/uL Low [place] Monocytes/100 WBC (Bld) 0 % Low 3 - 12 % [place] Morphology Geovany (Bld) [Interp] Normal [place] Platelet mean volume (Bld) [Entitic vol] 8.6 fL 8.1 - 13.5 fL [place] Platelets (Bld) [#/Vol] NOT REPORTED [place] Platelets (Bld) [#/Vol] 335 10*3/uL [place] RBC (Bld) [#/Vol] 3.54 10*6/uL Low 3.95 - 5.1 1 m/uL [place] RBC morphology finding Nom (Bld) NOT REPORTED [place] Segmented neutrophils/100 WBC (Bld) 87 % High 36 - 65 % [place] Segs Absolute 6.52 [place] WBC (Bld) [#/Vol] 7.5 10*3/uL [place] WBC (Bld) [#/Vol] 0.0 10*3/uL 0.0 per 10 0 WBC [place] WBC Morphology NOT REPORTED [place] CBC with Diffon 08-02-2019 Abs. Basophil 0.00 k/uL Normal 0.0-0.2 [facility] Comment on above: Performed By: #### D CITLALY, LIP, CMPX, TROPI, BNP, CDP, PT #### [address] [place] [id number] Band Manager: Sami Dominguez MD Abs.Imm.Granulocyte 0.00 k/uL Normal 0.00-0.30 [facility] Comment on above: Performed By: #### D CITLALY, LIP, CMPX, TROPI, BNP, CDP, PT #### [facility] [address] [place], [facility] Band Manager: Sami Dominguez MD Abs.Neutrophil (Seg) 6.52 k/uL Normal 1.50-8.10 [facility] Comment on above: Performed By: #### D CITLALY, LIP, CMPX, TROPI, BNP, CDP, PT #### [facility] [address] [place] [address] Band Manager: Sami Dominguez MD Basophils/100 WBC (Bld) 0 % Normal 0-2 M [facility] Comment on above: Performed By: #### D CITLALY, LIP, CMPX, TROPI, BNP, CDP, PT #### [facility] [address] [place], [place] [address] Band Manager: Sami Dominguez MD Eosinophils (Bld) [#/Vol] 0.08 10*3/uL Normal 0.00-0.44 [facility] Comment on above: Performed By: #### D CITLALY, LIP, CMPX, TROPI, BNP, CDP, PT #### [facility] [address] [place], [facility] Band Manager: Sami Dominguez MD Eosinophils/100 WBC (Bld) 1 % Normal 1-4 [facility] Comment on above: Performed By: #### D CITLALY, LIP, CMPX, TROPI, BNP, CDP, PT #### [facility] [address] [place], [place] [address] Band Manager: Sami Dominguez MD Immature granulocytes (Bld) [#/Vol] 0 % Normal 0 [facility] Comment on above: Performed By: #### D CITLALY, LIP, CMPX, TROPI, BNP, CDP, PT #### [address] [place], [facility]83 Band Manager: Sami Dominguez MD Lymphocytes (Bld) [#/Vol] 0.90 10*3/uL Low 1.10-3.70 [facility] Comment on above: Performed By: #### D CITLALY, LIP, CMPX, TROPI, BNP, CDP, PT #### [facility] [address] [place], [facility]83 Band Manager: Sami Dominguez MD Lymphocytes/100 WBC (Bld) 12 % Low 24-43 [facility] Comment on above: Performed By: #### D ICTLALY, LIP, CMPX, TROPI, BNP, CDP, PT #### [facility] [address] [place], [facility]83 Band Manager: Sami Dominguez MD Monocytes (Bld) [#/Vol] 0.00 10*3/uL Low 0.10-1.20 [facility] Comment on above: Performed By: #### D CITLALY, LIP, CMPX, TROPI, BNP, CDP, PT #### [facility] [address] [place] [address] Band Manager: Sami Dominguez MD Monocytes/100 WBC (Bld) 0 % Low 3-12 M [facility] Comment on above: Performed By: #### D CITLALY, LIP, CMPX, TROPI, BNP, CDP, PT #### [facility] [address] [place] [address] Band Manager: Sami Dominguez MD Morphology Geovany (Bld) [Interp] Normal Normal [facility] Comment on above: Performed By: #### D CITLALY, LIP, CMPX, TROPI, BNP, CDP, PT #### [address] [place], [place] [id number] Band Manager: Sami Dominguez MD Neutrophil (Seg) 87 % High 36-65 [facility] Comment on above: Performed By: #### D CITLALY, LIP, CMPX, TROPI, BNP, CDP, PT #### [address] [place] [address] Band Manager: Sami Dominguez MD Erythrocyte distribution width (RBC) [Ratio] 13.2 % Normal 11.8-14.4 [facility] Comment on above: Performed By: #### D CITLALY, LIP, CMPX, TROPI, BNP, CDP, PT #### [facility] [address] [place] [address] Band Manager: Sami Dominguez MD Hematocrit (Bld) [Volume fraction] 33.7 % Low 36.3-47.1 [facility] Comment on above: Performed By: #### D CITLALY, LIP, CMPX, TROPI, BNP, CDP, PT #### [facility] [address] [place], [place] [id number] Band Manager: Sami Dominguez MD Hemoglobin (Bld) [Mass/Vol] 10.7 g/dL Low 11.9-15.1 [facility] Comment on above: Performed By: #### D CITLALY, LIP, CMPX, TROPI, BNP, CDP, PT #### [facility] [address] [place], [facility]83 Band Manager: Sami Dominguez MD MCH (RBC) [Entitic mass] 30.2 pg Normal 25.2-33.5 [facility] Comment on above: Performed By: #### D CITLALY, LIP, CMPX, TROPI, BNP, CDP, PT #### [address] [place] [facility]83 Band Manager: Sami Dominguez MD MCHC (RBC) [Mass/Vol] 31.8 g/dL Normal 28.4-34.8 [facility] Comment on above: Performed By: #### D CITLALY, LIP, CMPX, TROPI, BNP, CDP, PT #### [address] [place], [facility]83 Band Manager: Sami Dominguez MD MCV (RBC) [Entitic vol] 95.2 fL Normal 82.6-102.9 [facility] Comment on above: Performed By: #### D CITLALY, LIP, CMPX, TROPI, BNP, CDP, PT #### [facility] [address] [place], [facility]83 Band Manager: Sami Dominguez MD NRBC Automated 0.0 per 100 WBC Normal 0.0 [facility] Comment on above: Performed By: #### D CITLALY, LIP, CMPX, TROPI, BNP, CDP, PT #### [facility] [address] [place] [address] Band Manager: Sami Dominguez MD Platelet mean volume (Bld) [Entitic vol] 8.6 fL Normal 8.1-13.5 [facility] Comment on above: Performed By: #### D CITLALY, LIP, CMPX, TROPI, BNP, CDP, PT #### [facility] [address] [place], [place] [id number] Band Manager: Sami Dominguez MD Platelets (Bld) [#/Vol] 335 10*3/uL Normal 138-453 [facility] Comment on above: Performed By: #### D CITLALY, LIP, CMPX, TROPI, BNP, CDP, PT #### [facility] [address] [place], [facility]83 Band Manager: Sami Dominguez MD RBC (Bld) [#/Vol] 3.54 10*6/uL Low 3.95-5.11 [facility] Comment on above: Performed By: #### D CITLALY, LIP, CMPX, TROPI, BNP, CDP, PT #### [facility] [address] [place], [facility]83 Band Manager: Sami Dominguez MD WBC (Bld) [#/Vol] 7.5 10*3/uL Normal 3.5-11.3 [facility] Comment on above: Performed By: #### D CITLALY, LIP, CMPX, TROPI, BNP, CDP, PT #### [facility] [address] [place], [facility]83 Band Manager: Sami Dominguez MD Auto Diff Performed NOT REPORTED Normal [facility] Comment on above: Performed By: #### D CITLALY, LIP, CMPX, TROPI, BNP, CDP, PT #### [facility] [address] [place], [place] [id number] Band Manager: Sami Dominguez MD Platelets (Bld) [#/Vol] NOT REPORTED Normal [facility] Comment on above: Performed By: #### D CITLALY, LIP, CMPX, TROPI, BNP, CDP, PT #### [facility] [address] [place], [place] [id number] Band Manager: Sami Dominguez MD RBC morphology finding Nom (Bld) NOT REPORTED Normal [facility] Comment on above: Performed By: #### D CITLALY, LIP, CMPX, TROPI, BNP, CDP, PT #### [facility] [address] [place] [address] Band Manager: Sami Dominguez MD WBC Morphology NOT REPORTED Normal [facility] Comment on above: Performed By: #### D CITLALY, LIP, CMPX, TROPI, BNP, CDP, PT #### [facility] [address] [place] [address] Band Manager: Sami Dominguez MD CTA CHEST ABDOMEN PELVIS [...] Yunier Yang MD 08/02/19 Final result Normal [facility] [place], pn Incoming Radiant Results From [facility] - 08/02/2019 1:21 PM EDT EXAMINATION: CTA [...] recommended. Reference: J Am Danika Radiol 2013;10:675-681 [place], [place] EXAMINATION: CTA OF THE CHEST, ABDOMEN [...] and caliber without aneurysmal dilatation or dissection. [place] No evidence for aneurysmal dilatation or dissection of the aorta or its branches. Findings most compatible with polycystic kidney disease. Subtle inflammation adjacent to the descending colon is suggestive of subtle colitis. No perforation or abscess formation. No free intraperitoneal air or fluid. 4.1 cm benign appearing ovarian cyst No follow-up imaging is recommended. Reference: J Am Danika Radiol 2013;10:675-681 [place], [place] Comp Metabolic Pr/rfx MGon 1 (cont.) Normal [facility] Comment on above: Result Comment: Aver age GFR for 40-49 years old: 99 mL/min/1.73sq m Chronic Kidney Disease: <60 mL/min/1.73sq m Kidney failure: <15 mL/min/1.73sq m eGFR calculated using average adult body mass. Additional eGFR calculator available at: http://www.[employer]/multiple_crcl_2012.htm Performed By: #### D CITLALY, LIP, CMPX, TROPI, BNP, CDP, PT #### [facility] [address] [place] [address] Band Manager: Sami Dominguez MD Albumin [Mass/Vol] 4.4 g/dL Normal 3.5-5.2 [facility] Comment on above: Performed By: #### D CITLALY, LIP, CMPX, TROPI, BNP, CDP, PT #### [facility] [address] [place] [address] Band Manager: Sami Dominguez MD Albumin/Globulin [Mass ratio] 1.0 {ratio} Normal 1.0-2.5 [facility] Comment on above: Performed By: #### D CITLALY, LIP, CMPX, TROPI, BNP, CDP, PT #### [facility] [address] [place], [place] [id number] Band Manager: Sami Dominguez MD Alkaline Phos 98 U/L Normal 35-104 [facility] Comment on above: Performed By: #### D CITLALY, LIP, CMPX, TROPI, BNP, CDP, PT #### [facility] [address] [place], [place] [id number] Band Manager: Sami Dominguez MD ALT [Catalytic activity/Vol] 16 U/L Normal 5-33 [facility] Comment on above: Performed By: #### D CITLALY, LIP, CMPX, TROPI, BNP, CDP, PT #### [facility] [address] [place], [place] [id number] Band Manager: Sami Dominguez MD Anion gap [Moles/Vol] 18 mmol/L High 9-17 [facility] Comment on above: Performed By: #### D CITLALY, LIP, CMPX, TROPI, BNP, CDP, PT #### [facility] [address] [place] [address] Band Manager: Sami Dominguez MD AST [Catalytic activity/Vol] 18 U/L Normal <32 [facility] Comment on above: Performed By: #### D CITLALY, LIP, CMPX, TROPI, BNP, CDP, PT #### [facility] [address] [place], [place] [id number] Band Manager: Sami Dominguez MD Bilirubin Ql (U) 0.31 mg/dL Normal 0.3-1.2 [facility] Comment on above: Performed By: #### D CITLALY, LIP, CMPX, TROPI, BNP, CDP, PT #### [facility] [address] [place] [address] Band Manager: Sami Dominguez MD BUN/CRE Ratio 13 Normal 9-20 [facility] Comment on above: Performed By: #### D CITLALY, LIP, CMPX, TROPI, BNP, CDP, PT #### [facility] [address] [place] [address] Band Manager: Sami Dominguez MD Calcium [Mass/Vol] 9.7 mg/dL Normal 8.6-10.4 [facility] Comment on above: Performed By: #### D CITLALY, LIP, CMPX, TROPI, BNP, CDP, PT #### [facility] [address] [place], [place] [id number] Band Manager: Sami Dominguez MD Chloride [Moles/Vol] 95 mmol/L Low 98-107 [facility] Comment on above: Performed By: #### D CITLALY, LIP, CMPX, TROPI, BNP, CDP, PT #### [facility] [address] [place] [address] Band Manager: Sami Dominguez MD CO2 [Moles/Vol] 18 mmol/L Low 20-31 [facility] Comment on above: Performed By: #### D CITLALY, LIP, CMPX, TROPI, BNP, CDP, PT #### [address] [place] [address] Band Manager: Sami Dominguez MD Creatinine [Mass/Vol] 3.07 mg/dL High 0.50-0.90 [facility] Comment on above: Performed By: #### D CITLALY, LIP, CMPX, TROPI, BNP, CDP, PT #### [facility] [address] [place], [place] [id number] Band Manager: Sami Dominguez MD GFR, Amer 20 mL/min Low >60 [facility] Comment on above: Performed By: #### D CITLALY, LIP, CMPX, TROPI, BNP, CDP, PT #### [facility] [address] [place], [place] [id number] Band Manager: Sami Dominguez MD GFR,non Amer 17 mL/min Low >60 [facility] Comment on above: Performed By: #### D CITLALY, LIP, CMPX, TROPI, BNP, CDP, PT #### [facility] [address] [place] [address] Band Manager: Sami Dominguez MD Glucose [Mass/Vol] 89 mg/dL Normal 70-99 [facility] Comment on above: Performed By: #### D CITLALY, LIP, CMPX, TROPI, BNP, CDP, PT #### [facility] [address] [place] [address] Band Manager: Sami Dominguez MD Potassium [Moles/Vol] 3.9 mmol/L Normal 3.7-5.3 [facility] Comment on above: Performed By: #### D CITLALY, LIP, CMPX, TROPI, BNP, CDP, PT #### [facility] [address] [place] [address] Band Manager: Sami Dominguez MD Protein [Mass/Vol] 8.8 g/dL High 6.4-8.3 [facility] Comment on above: Performed By: #### D CITLALY, LIP, CMPX, TROPI, BNP, CDP, PT #### [facility] [address] [place] [address] Band Manager: Sami Dominguez MD Sodium [Moles/Vol] 131 mmol/L Low 135-144 [facility] Comment on above: Performed By: #### D CITLALY, LIP, CMPX, TROPI, BNP, CDP, PT #### [facility] [address] [place] [address] Band Manager: Sami Dominguez MD Staging: Normal [facility] Comment on above: Result Comment: Stag e 1: Some kidney damage normal GFR Stage 2: Mild kidney damage GFR 60-89 Stage 3: Moderate kidney damage GFR 30-59 Stage 4: Severe kidney damage GFR 15-29 Stage 5: Severe kidney damage GFR <15 ESRD - chronic treatment by dialysis or transplant Performed By: #### D CITLALY, LIP, CMPX, TROPI, BNP, CDP, PT #### [facility] [address] [address] Band Manager: Sami Dominguez MD Urea nitrogen [Mass/Vol] 39 mg/dL High 6-20 [facility] Comment on above: Performed By: #### D CITLALY, LIP, CMPX, TROPI, BNP, CDP, PT #### [facility] [address] [address] Band Manager: Sami Dominguez MD Comprehensive Metabolic Pane l w/ Reflex to MGon 08-02-2019 Albumin [Mass/Vol] 4.4 g/dL 3.5 - 5.2 g/dL [place] Albumin/Globulin [Mass ratio] 1.0 {ratio} [place] ALP [Catalytic activity/Vol] 98 U/L 35 - 104 U/L [place] ALT [Catalytic activity/Vol] 16 U/L 5 - 33 U/L [place] Anion gap [Moles/Vol] 18 mmol/L High 9 - 17 mmol/L [place] AST [Catalytic activity/Vol] 18 U/L <32 [place] Bilirubin Ql (U) 0.31 mg/dL 0.3 - 1.2 mg/dL [place] Bun/Cre Ratio 13 [place] Calcium [Mass/Vol] 9.7 mg/dL 8.6 - 10. 4 mg/dL [place] Chloride [Moles/Vol] 95 mmol/L Low 98 - 10 7 mmol/L [place] CO2 [Moles/Vol] 18 mmol/L Low 20 - 31 mmol/L [place] Creatinine [Mass/Vol] 3.07 mg/dL High 0.5 - 0.9 mg/dL [place] GFR 20 mL/min Low >60 [place] GFR Non- 17 mL/min Low >60 [place] Glucose [Mass/Vol] 89 mg/dL 70 - 99 mg/dL [place] Interpretation and review of laboratory results Abnormal [place] Potassium [Moles/Vol] 3.9 mmol/L 3.7 - 5.3 mmol/L [place] Protein [Mass/Vol] 8.8 g/dL High 6.4 - 8.3 g/dL [place] Sodium [Moles/Vol] 131 mmol/L Low 135 - 144 mmol/L [place] Urea nitrogen [Mass/Vol] 39 mg/dL High 6 - 20 mg/dL [place] D-Dimer Teston 08-02-2019 D-Dimer Test 1.15 mg/L FEU High 0.19-0.50 [facility] Comment on above: Result Comment: Elevated [...] LIP, CMPX, TROPI, BNP, CDP, PT #### [facility] [address] [place] [address] Band Manager: Sami Dominguez MD D-Dimer, Quantitativeon 07-07 D-Dimer, Quant 1.15 [place] Comment on above: Elevated levels of [...] Interpretation and review of laboratory results Abnormal [place] Lactate, Sepsison 08-02-2019 Lactic Acid, Sepsis 3.6 mmol/L High 0.5-1.9 [facility] Comment on above: Performed By: #### L ACDS #### [facility] [address] [place] [address] Band Manager: Sami Dominguez MD Lactic Acid,Sep Wbld NOT REPORTED Normal 0.5-1.9 [facility] Comment on above: Performed By: #### L ACDS #### [facility] [address] [place] [id number] Band Manager: Sami Dominguez MD Interpretation and review of laboratory results Abnormal [place] Lactic Acid, Sepsis 3.6 mmol/L High 0.5 - 1. 9 mmol/L [place] Lactic Acid, Sepsis, Whole Blood NOT REPORTED 0.5 - 1.9 mmol/L [place] Lactic Acidon 08-02-2019 Lactate [Moles/Vol] 1.0 mmol/L Normal 0.5-2.2 [facility] Comment on above: Performed By: #### D CITLALY, LIP, CMPX, TROPI, BNP, CDP, PT #### [facility] [address] [place] [address] Band Manager: Sami Dominguez MD Lactate [Moles/Vol] NOT REPORTED Normal 0.7-2.1 [facility] Comment on above: Performed By: #### D CITLALY, LIP, CMPX, TROPI, BNP, CDP, PT #### [facility] [address] [place] [address] Band Manager: Sami Dominguez MD Lactic Acid, Plasmaon 2018 Lactate [Moles/Vol] 1 mmol/L 0.5 - 2. 2 mmol/L [place], [place] Lactic Acid, Whole Blood NOT REPORTED 0.7 - 2.1 mmol/L [place], [place] Lipaseon 08-02-2019 Lipase [Catalytic activity/Vol] 38 U/L Normal 13-60 [facility] Comment on above: Performed By: #### D CITLALY, LIP, CMPX, TROPI, BNP, CDP, PT #### [facility] [address] [place] [address] Band Manager: Sami Dominguez MD Lipase [Catalytic activity/Vol] 38 U/L 13 - 60 U/L [place] Metabolic Panelon 08-02-2019 GFR/1.73 sq M predicted among non-blacks MDRD (S/P/Bld) [Vol rate/Area] [place] Comment on above: Stage 1: Some [...] body mass. Additional eGFR calculator available at: http://www.Mobspire/multiple_crcl_2012.htm Microscopic Urinalysison Amorphous, UA NOT REPORTED None [place] Bacteria, UA 1+ Abnormal None [place] Casts UA NOT REPORTED /LPF [place] Crystals UA NOT REPORTED None /HPF [place] Epithelial Cells UA 2 TO 5 [place] Interpretation and review of laboratory results Abnormal [place] Mucus, UA NOT REPORTED None [place] Other Observations UA NOT REPORTED NOT REQ. M [place] RBC (U) [#/Vol] None [place] Renal Epithelial, Urine NOT REPORTED 0 /HPF [place] Trichomonas, UA NOT REPORTED None [place] WBC, UA 50 TO 100 [place] Yeast, UA NOT REPORTED None [place] PTon 08-02-2019 INR Coag (PPP) [Relative time] 1.0 {INR} Normal 0.9-1.2 [facility] Comment on above: Performed By: #### D CITLALY, LIP, CMPX, TROPI, BNP, CDP, PT #### [facility] [address] [place] [address] Band Manager: Sami Dominguez MD PT Coag (PPP) [Time] 10.0 s Normal 9.7-12.2 [facility] Comment on above: Performed By: #### D CITLALY, LIP, CMPX, TROPI, BNP, CDP, PT #### [facility] [address] [place] [address] Band Manager: Sami Dominguez MD Protime-INRon 08-02-2019 INR Coag (PPP) [Relative time] 1.0 {INR} [place] PT Coag (PPP) [Time] 10 s [place] Troponinon 08-02-2019 Troponin I.cardiac [Mass/Vol] ng/mL Normal <0.03 [facility] Comment on above: Result Comment: Trop onin T results cannot be compared to Troponin-I results. Performed By: #### D CITLALY, LIP, CMPX, TROPI, BNP, CDP, PT #### [facility] [address] [place] [address] Band Manager: Sami Dominguez MD Troponin I.cardiac [Mass/Vol] Normal [facility] Comment on above: Result Comment: Refe [...] LIP, CMPX, TROPI, BNP, CDP, PT #### [facility] [address] [place] [address] Band Manager: Sami Dominguez MD Troponin I.cardiac [Mass/Vol] NOT REPORTED Normal 0-14 [facility] Comment on above: Performed By: #### D CITLALY, LIP, CMPX, TROPI, BNP, CDP, PT #### [facility] [address] [place] [address] Band Manager: Sami Dominguez MD Troponin I.cardiac [Mass/Vol] [place] Comment on above: Reference Range: <0.03 [...] diagnosis. Troponin T.cardiac [Mass/Vol] ug/L <0.03 ng/mL [place] Comment on above: Troponin T results c annot be compared to Troponin-I results. Troponin, High Sensitivity NOT REPORTED 0 - 14 ng/L [place] Troponin I.cardiac [Mass/Vol] ng/mL Normal <0.03 [facility] Comment on above: Result Comment: Trop onin T results cannot be compared to Troponin-I results. Performed By: #### D CITLALY, LIP, CMPX, TROPI, BNP, CDP, PT #### [facility] [address] [place] [address] Band Manager: Sami Dominguez MD Troponin I.cardiac [Mass/Vol] Normal [facility] Comment on above: Result Comment: Refe [...] LIP, CMPX, TROPI, BNP, CDP, PT #### [facility] [address] [place] [address] Band Manager: Sami Dominguez MD Troponin I.cardiac [Mass/Vol] NOT REPORTED Normal 0-14 [facility] Comment on above: Performed By: #### D CITLALY, LIP, CMPX, TROPI, BNP, CDP, PT #### [facility] [address] [place] [address] Band Manager: Sami Dominguez MD Troponin I.cardiac [Mass/Vol] [place] Comment on above: Reference Range: <0.03 [...] diagnosis. Troponin T.cardiac [Mass/Vol] ug/L <0.03 ng/mL [place] Comment on above: Troponin T results c annot be compared to Troponin-I results. Troponin, High Sensitivity NOT REPORTED 0 - 14 ng/L [place] UA w/Reflex Cultureon 2018 Acetoacetic Acid,Ur Negative Normal NEG [facility] Comment on above: Performed By: #### D CITLALY, LIP, CMPX, TROPI, BNP, CDP, PT #### [facility] [address] [place] [address] Band Manager: Sami Dominguez MD Bilirubin, SemiQt,Ur Negative Normal NEG [facility] Comment on above: Performed By: #### D CITLALY, LIP, CMPX, TROPI, BNP, CDP, PT #### [facility] [address] [place] [address] Band Manager: Sami Dominguez MD Color (U) YELLOW Normal YEL [facility] Comment on above: Performed By: #### D CITLALY, LIP, CMPX, TROPI, BNP, CDP, PT #### [facility] [address] [place] [address] Band Manager: Sami Dominguez MD Glucose Ql (U) Negative Normal [facility] Comment on above: Performed By: #### D CITLALY, LIP, CMPX, TROPI, BNP, CDP, PT #### [facility] [address] [place] [address] Band Manager: Sami Dominguez MD Hemoglobin, Ur 1+ Abnormal NEG [facility] Comment on above: Performed By: #### D CITLALY, LIP, CMPX, TROPI, BNP, CDP, PT #### [facility] [address] [place], [place] [id number] Band Manager: Sami Dominguez MD Leukocyte esterase Test strip Ql (U) MODERATE Abnormal NEG [facility] Comment on above: Performed By: #### D CITLALY, LIP, CMPX, TROPI, BNP, CDP, PT #### [facility] [address] [place] [address] [place], [place] [id number] Band Manager: Sami Dominguez MD Nitrite,Ur Negative Normal [facility] Comment on above: Performed By: #### D CITLALY, LIP, CMPX, TROPI, BNP, CDP, PT #### [address] [place], [place] [id number] Band Manager: Sami Dominguez MD pH (U) 6.0 [pH] Normal 5.0-9.0 [facility] Comment on above: Performed By: #### D CITLALY, LIP, CMPX, TROPI, BNP, CDP, PT #### [facility] [address] [place] [address] [place], [place] [id number] Band Manager: Sami Dominguez MD Protein Ql (U) TRACE Abnormal [facility] Comment on above: Performed By: #### D CITLALY, LIP, CMPX, TROPI, BNP, CDP, PT #### [facility] [address] [place] [address] Band Manager: Sami Dominguez MD Specific gravity (U) [Rel density] 1.010 Normal 1.010-1.020 [facility] Comment on above: Performed By: #### D CITLALY, LIP, CMPX, TROPI, BNP, CDP, PT #### [facility] [address] [place] [address] Band Manager: Sami Dominguez MD Turbidity CLEAR Normal CLEAR [facility] Comment on above: Performed By: #### D CITLALY, LIP, CMPX, TROPI, BNP, CDP, PT #### [facility] [address] [place] [address] Band Manager: Sami Dominguez MD Urobilinogen,Ur Normal Normal NORM [facility] Comment on above: Performed By: #### D CITLALY, LIP, CMPX, TROPI, BNP, CDP, PT #### [facility] [address] [place] [address] Band Manager: Sami Dominguez MD Comment NOT REPORTED Normal [facility] Comment on above: Performed By: #### D CITLALY, LIP, CMPX, TROPI, BNP, CDP, PT #### [facility] [address] [place] [address] [place] [address] Band Manager: Sami Dominguez MD Urinalysis Reflex to Culture on 08-02-2019 Bilirubin Urine Negative NEGATIVE [place] Color, UA YELLOW YELLOW [place] Glucose, Ur Negative NEGATIVE [place] Interpretation and review of laboratory results Abnormal [place] Ketones Ql (U) Negative NEGATIVE [place] Leukocyte esterase Test strip Ql (U) MODERATE Abnormal NEGATIVE [place] Nitrite, Urine Negative NEGATIVE [place] pH, UA 6.0 [place] Protein (U) [Mass/Vol] TRACE Abnormal NEGATIVE [facility], [place] Specific [place], UA 1.010 [place], [place] Turbidity UA CLEAR CLEAR [place] Urinalysis Comments NOT REPORTED [place] Urine Hgb 1+ Abnormal NEGATIVE [place] Urobilinogen, Urine Normal Normal [place] Urinalysis,Microon 9 ----- Normal [facility] Comment on above: Performed By: #### D CITLALY, LIP, CMPX, TROPI, BNP, CDP, PT #### [facility] [address] [place] [address] Band Manager: Sami Dominguez MD Bacteria LM.HPF (Urine sed) [#/Area] 1+ Abnormal [facility] Comment on above: Performed By: #### D CITLALY, LIP, CMPX, TROPI, BNP, CDP, PT #### [facility] [address] [place] [address] Band Manager: Sami Dominguez MD Epithelial cells LM.HPF (Urine sed) [#/Area] 2 TO 5 Normal 0-25 [facility] Comment on above: Performed By: #### D CITLALY, LIP, CMPX, TROPI, BNP, CDP, PT #### [facility] [address] [place] [address] Band Manager: Sami Dominguez MD RBC (U) [#/Vol] None Normal 0-2 [facility] Comment on above: Performed By: #### D CITLALY, LIP, CMPX, TROPI, BNP, CDP, PT #### [facility] [address] [place] [address] Band Manager: Sami Dominguez MD WBC (U) [#/Vol] 50 TO 100 Normal 0-5 [facility] Comment on above: Performed By: #### D CITLALY, LIP, CMPX, TROPI, BNP, CDP, PT #### [facility] [address] [place] [address] Band Manager: Sami Dominguez MD Amorphous sediment LM Ql (Urine sed) NOT REPORTED Normal [facility] Comment on above: Performed By: #### D CITLALY, LIP, CMPX, TROPI, BNP, CDP, PT #### [facility] [address] [place] [address] Band Manager: Sami Dominguez MD Casts LM.LPF (Urine sed) [#/Area] NOT REPORTED Normal [facility] Comment on above: Performed By: #### D CITLALY, LIP, CMPX, TROPI, BNP, CDP, PT #### [facility] [address] [place] [address] Band Manager: Sami Dominguez MD Crystals LM Nom (Urine sed) NOT REPORTED Normal [facility] Comment on above: Performed By: #### D CITLALY, LIP, CMPX, TROPI, BNP, CDP, PT #### [address] [place] [address] Band Manager: Sami Dominguez MD Epithelial, Renal NOT REPORTED Normal 0 [facility] Comment on above: Performed By: #### D CITLALY, LIP, CMPX, TROPI, BNP, CDP, PT #### [address] [place] [address] Band Manager: Sami Dominguez MD Mucus Strands NOT REPORTED Normal [facility] Comment on above: Performed By: #### D CITLALY, LIP, CMPX, TROPI, BNP, CDP, PT #### [address] [place] [address] Band Manager: Sami Dominguez MD Other Observations NOT REPORTED Normal NREQ [facility] Comment on above: Performed By: #### D CITLALY, LIP, CMPX, TROPI, BNP, CDP, PT #### [address] [place], [place] [id number] Band Manager: Sami Dominguez MD Trichomonas NOT REPORTED Normal [facility] Comment on above: Performed By: #### D CITLALY, LIP, CMPX, TROPI, BNP, CDP, PT #### [facility] [address] [place] [address] Band Manager: Sami Dominguez MD Yeast LM Ql (Urine sed) NOT REPORTED Normal NONE [facility] Comment on above: Performed By: #### D CITLALY, LIP, CMPX, TROPI, BNP, CDP, PT #### [facility] [address] [place] [address] Band Manager: Sami Dominguez MD XR CHEST PORTABLEon 08-02-20 [...] Cullen Ngo MD 08/02/19 Final result Normal [facility] EXAMINATION: ONE XRA Y VIEW OF THE CHEST 08/02/2019 12:59 pm COMPARISON: None. HISTORY: ORDERING SYSTEM PROVIDED HISTORY: CP TECHNOLOGIST PROVIDED HISTORY: CP FINDINGS: Heart size and pulmonary vessels are within normal limits. Lungs are clear. No focal infiltrates or significant pleural effusions are seen. There is no acute osseous abnormality. Monitor leads overlie the chest. [place] No acute cardiopulmo nary process. [place] Moshe, [facility] Incoming Radiant Results From [facility] - 08/02/2019 1:10 PM EDT EXAMINATION: ONE [...] the chest. IMPRESSION: No acute cardiopulmonary process. [place] Vital Signs Date Time Vital Sign Value Performing Clinician Facility 10-01-2024 08:19-0500 Body height 154.9 cm Ming Espinoza DO Work Phone: [facility] 10-01-2024 08:19-0500 Body mass index (BMI) [Ratio] 34.2 kg/m2 Ming Espinoza DO Work Phone: [facility] 10-01-2024 08:19-0500 Body weight 82.1 kg Ming Espinoza DO Work Phone: [facility] 10-01-2024 08:19-0500 Diastolic blood pressure 60 mm[Hg] Ming Espinoza DO Work Phone: [facility] 10-01-2024 08:19-0500 Heart rate 88 /min Ming Espinoza DO Work Phone: [facility] 10-01-2024 08:19-0500 SaO2% (BldA) [Mass fraction] 98 % Ming Espinoza DO Work Phone: [facility] 10-01-2024 08:19-0500 Systolic blood pressure 124 mm[Hg] Ming Espinoza DO Work Phone: [facility] 07-27-2024 08:34-0400 Body temperature 97.81 [degF] Lucero Didion CVICU NURSE Work Phone: [facility] 07-27-2024 08:34-0400 Diastolic blood pressure 74 mm[Hg] Lucero Didion CVICU NURSE Work Phone: [facility] 07-27-2024 08:34-0400 Heart rate 83 /min Lucero Didion CVICU NURSE Work Phone: [facility] 07-27-2024 08:34-0400 SaO2% (BldA) [Mass fraction] 98 % Lucero Didion CVICU NURSE Work Phone: [facility] 07-27-2024 08:34-0400 Systolic blood pressure 118 mm[Hg] Lucero Didion CVICU NURSE Work Phone: [facility] 03-15-2024 17:34-0400 Body height 157.48 cm MINISTER Andreia Jerry Work Phone: [facility] 03-15-2024 17:34-0400 Body mass index (BMI) [Ratio] 31.8 kg/m2 MINISTER Andreia Jerry Work Phone: [facility] 03-15-2024 17:34-0400 Body temperature 100.3 [degF] MINISTER Andreia Jerry Work Phone: [facility] 03-15-2024 17:34-0400 Body weight 78.92 kg MINISTER Andreia Jerry Work Phone: [facility] 03-15-2024 17:34-0400 Diastolic blood pressure 79 mm[Hg] MINISTER Andreia Jerry Work Phone: [facility] 03-15-2024 17:34-0400 Heart rate 88 /min MINISTER Andreia Jerry Work Phone: [facility] 03-15-2024 17:34-0400 Respiratory rate 18 /min MINISTER Andreia Jerry Work Phone: [facility] 03-15-2024 17:34-0400 SaO2% (BldA) [Mass fraction] 96 % MINISTER Andreia Jerry Work Phone: [facility] 03-15-2024 17:34-0400 Systolic blood pressure 121 mm[Hg] MINISTER Andreia Jerry Work Phone: [facility] 07-30-2022 17:40-0400 Body height 157.48 cm Yaneth Toni Other [facility] [employer] Other 07-30-2022 17:40-0400 Body mass index (BMI) [Ratio] 36.69 kg/m2 Yaneth Toni Other [employer] Other 07-30-2022 17:40-0400 Body temperature 97.4 [degF] Yaneth Toni Other [employer] Other 07-30-2022 17:40-0400 Body weight 90.99 kg Yaneth Toni Other [employer] Other 07-30-2022 17:40-0400 Diastolic blood pressure 85 mm[Hg] Yaneth Toni Other [employer] Other 07-30-2022 17:40-0400 Respiratory rate 18 /min Yaneth Toni Other [employer] Other 07-30-2022 17:40-0400 SaO2% (BldA) [Mass fraction] 99 % Yaneth Toni Other [employer] Other 07-30-2022 17:40-0400 Systolic blood pressure 124 mm[Hg] Yaneth Toni Other [employer] Other 07-03-2022 09:45-0400 Body height 157.48 cm Estefania Vo Other [employer] Other 07-03-2022 09:45-0400 Body mass index (BMI) [Ratio] 36.76 kg/m2 Estefania Vo Other [employer] Other 07-03-2022 09:45-0400 Body temperature 97 [degF] Estefania Vo Other [employer] Other 07-03-2022 09:45-0400 Body weight 91.17 kg Estefania Vo Other [employer] Other 07-03-2022 09:45-0400 Diastolic blood pressure 60 mm[Hg] Estefania Vo Other [facility] [employer] Other 07-03-2022 09:45-0400 SaO2% (BldA) [Mass fraction] 99 % Estefania Vo Other [employer] Other 07-03-2022 09:45-0400 Systolic blood pressure 110 mm[Hg] Estefania Vo Other [facility] [employer] Other 06-20-2022 16:10-0400 Diastolic blood pressure 68 mm[Hg] DO Ming Espinoza Work Phone: [facility] 06-20-2022 16:10-0400 Heart rate 69 /min DO Ming Espinoza Work Phone: [facility] 06-20-2022 16:10-0400 Respiratory rate 18 /min DO Ming Espinoza Work Phone: [facility] 06-20-2022 16:10-0400 SaO2% (BldA) [Mass fraction] 100 % DO Ming Espinoza Work Phone: [facility] 06-20-2022 16:10-0400 Systolic blood pressure 126 mm[Hg] DO Ming Alexis Work Phone: [facility] 06-20-2022 13:15-0400 Body height 157.48 cm DO Ming Alexis Work Phone: [facility] 06-20-2022 13:15-0400 Body temperature 98.6 [degF] DO Ming Alexis Work Phone: [facility] 06-20-2022 13:15-0400 Body weight 91.5 kg DO Ming Alexis Work Phone: [facility] 06-18-2022 10:45-0400 Diastolic blood pressure 79 mm[Hg] DO Ming Alexis Work Phone: [facility] 06-18-2022 10:45-0400 Heart rate 66 /min DO Ming Espinoza Work Phone: [facility] 06-18-2022 10:45-0400 Respiratory rate 16 /min DO Ming Espinoza Work Phone: [facility] 06-18-2022 10:45-0400 SaO2% (BldA) [Mass fraction] 100 % DO Ming Espinoza Work Phone: [facility] 06-18-2022 10:45-0400 Systolic blood pressure 130 mm[Hg] DO Ming Espinoza Work Phone: [facility] 06-18-2022 08:08-0400 Body mass index (BMI) [Ratio] 37.8 kg/m2 DO Ming Espinoza Work Phone: [facility] 06-18-2022 07:41-0400 Body height 157.48 cm DO Ming Espinoza Work Phone: [facility] 06-18-2022 07:41-0400 Body weight 93.89 kg DO Ming Espinoza Work Phone: [facility] 06-18-2022 06:26-0400 Body temperature 98.5 [degF] DO Ming Espinoza Work Phone: [facility] 05-30-2022 11:00-0400 Body height 157.48 cm Jesus Parham Other [employer] [facility] [employer] Other 05-30-2022 11:00-0400 Body mass index (BMI) [Ratio] 36.76 kg/m2 Jesus Parham Other [employer] Other 05-30-2022 11:00-0400 Body temperature 97.6 [degF] Jesus Parham Other [employer] Other 05-30-2022 11:00-0400 Body weight 91.17 kg Jesus Chungjaclyn Other [employer] Other 05-30-2022 11:00-0400 Diastolic blood pressure 76 mm[Hg] Jesus Chungjaclyn Other [employer] Other 05-30-2022 11:00-0400 SaO2% (BldA) [Mass fraction] 98 % Jesus Chungjaclyn Other [employer] Other 05-30-2022 11:00-0400 Systolic blood pressure 128 mm[Hg] Jesus Dione Other [employer] Other 05-02-2022 14:40-0400 Body height 157.48 cm Yaneth Toni Other [employer] Other 05-02-2022 14:40-0400 Body mass index (BMI) [Ratio] 36.76 kg/m2 Yaneth Toni Other [employer] Other 05-02-2022 14:40-0400 Body temperature 97.7 [degF] Yaneth Toni Other [employer] Other 05-02-2022 14:40-0400 Body weight 91.17 kg Yaneth Toni Other [employer] Other 05-02-2022 14:40-0400 Diastolic blood pressure 88 mm[Hg] Yaneth Toni Other [employer] Other 05-02-2022 14:40-0400 Respiratory rate 18 /min Yaneth Toni Other [employer] Other 05-02-2022 14:40-0400 SaO2% (BldA) [Mass fraction] 98 % Yaneth Toni Other [employer] Other 05-02-2022 14:40-0400 Systolic blood pressure 121 mm[Hg] Yaneth Toni Other [employer] Other 04-30-2022 10:10-0400 Body height 157.48 cm Dipika Shantell Other [employer] Other 04-30-2022 10:10-0400 Body mass index (BMI) [Ratio] 37.86 kg/m2 Dipika Shantell Other [employer] Other 04-30-2022 10:10-0400 Body temperature 97.4 [degF] Dipika Stinson Other [employer] Other 04-30-2022 10:10-0400 Body weight 93.9 kg Dipika Shantell Other [employer] Other 04-30-2022 10:10-0400 Diastolic blood pressure 80 mm[Hg] Dipika [place] Other [employer] Other 04-30-2022 10:10-0400 Respiratory rate 16 /min Dipika Shantell Other [employer] Other 04-30-2022 10:10-0400 SaO2% (BldA) [Mass fraction] 100 % Dipika Stinson Other [employer] Other 04-30-2022 10:10-0400 Systolic blood pressure 117 mm[Hg] Dipika [place] Other [facility] [employer] Other 04-01-2022 09:13-0400 Diastolic blood pressure 62 mm[Hg] DO Ming Espinoza Work Phone: [facility] 04-01-2022 09:13-0400 Heart rate 83 /min DO Ming Espinoza Work Phone: [facility] 04-01-2022 09:13-0400 Respiratory rate 16 /min DO Ming Espinoza Work Phone: [facility] 04-01-2022 09:13-0400 SaO2% (BldA) [Mass fraction] 97 % DO Ming Espinoza Work Phone: [facility] 04-01-2022 09:13-0400 Systolic blood pressure 101 mm[Hg] DO Ming Espinoza Work Phone: [facility] 04-01-2022 07:23-0400 Body height 157.48 cm DO Ming Espinoza Work Phone: [facility] 04-01-2022 07:23-0400 Body mass index (BMI) [Ratio] 37.8 kg/m2 DO Ming Espinoza Work Phone: [facility] 04-01-2022 07:23-0400 Body temperature 97.8 [degF] DO Ming Espinoza Work Phone: [facility] 04-01-2022 07:23-0400 Body weight 93.89 kg DO Ming Espinoza Work Phone: [facility] 12-06-2021 16:20-0500 Body height 157.48 cm Yaneth Toni Other [employer] [facility] [employer] Other 12-06-2021 16:20-0500 Body mass index (BMI) [Ratio] 37.86 kg/m2 Yaneth Toni Other [employer] Other 12-06-2021 16:20-0500 Body weight 93.9 kg Yaneth Toni Other [employer] Other 12-06-2021 16:20-0500 Diastolic blood pressure 89 mm[Hg] Yaneth Toni Other [employer] Other 12-06-2021 16:20-0500 Respiratory rate 18 /min Yaneth Toni Other [employer] Other 12-06-2021 16:20-0500 SaO2% (BldA) [Mass fraction] 97 % Yaneth Toni Other [employer] Other 12-06-2021 16:20-0500 Systolic blood pressure 134 mm[Hg] Yaneth Toni Other [employer] Other 08-02-2019 16:35-0400 Body Temperature 99.3 [degF] [facility] [place] [facility] 16:27-0400 Pulse (Heart Rate) 110 /min [place] 08-02-2019 16:27-0400 Pulse Oximetry 98 % [facility] , [place] 08-02-2019 16:27-0400 Respiratory Rate 14 /min [place] [facility] [place] [place] 08-02-2019 16:16-0400 BP Diastolic 56 mm[Hg] [facility] , [place] 08-02-2019 16:16-0400 BP Systolic 97 mm[Hg] [facility] , [place] 08-02-2019 14:59-0400 BMI (Body Mass Index) 37.79 kg/m2 [facility], [place] 08-02-2019 14:59-0400 Body weight 90.72 kg [facility] [place] , [place] 08-02-2019 14:59-0400 Height 154.9 cm Vidal [facility] [place] Encounters Encounter Date Encounter Type Care Provider Facility Start: 10-14-2024 End: 10-14-2024 Clinisync Result Encounter Generic External Data Provider [facility] External Department Unsolicited Start: 10-14-2024 End: 10-14-2024 Clinisync Result Encounter Generic External Data Provider [facility] External Department Unsolicited Start: 10-14-2024 End: 10-14-2024 ambulatory Ming Espinoza DO Work Phone: [facility] Work Phone: Start: 10-14-2024 End: 10-14-2024 Departed Referred Ming Espinoza DO Work Phone: [facility] Start: 10-02-2024 End: 10-02-2024 Clinisync Result Encounter Generic External Data Provider [facility] External Department Unsolicited Start: 10-02-2024 End: 10-02-2024 Clinisync Result Encounter Generic External Data Provider [facility] External Department Unsolicited Start: 10-01-2024 End: 10-01-2024 Office outpatient visit 40 minutes Ming Espinoza DO Work Phone: [facility] Comment on above: Benign essential hyp ertension ([facility]/HCC) (Primary Dx); Renal transplant recipient (CMS/[facility]); Immunosuppressive management encounter following kidney transplant ([facility]); Anemia of renal disease; Iron deficiency anemia, unspecified iron deficiency anemia type; Type 2 diabetes mellitus with stage 3a chronic kidney disease, without long-term current use of insulin (HCC) (CMS/HCC); Dyslipidemia ([facility]); Fibromyalgia; Need for immunization against influenza Start: [...] encounter procedure Ming Espinoza DO Work Phone: [facility] Work Phone: Start: 08-25-2024 End: 08-25-2024 ambulatory Ming Espinoza DO Work Phone: [facility] Work Phone: Start: 08-02-2024 End: 08-03-2024 [...] encounter procedure DO Ming Espinoza Work Phone: [facility] Work Phone: Start: 08-02-2024 End: 08-02-2024 ambulatory DO Ming Espinoza Work Phone: [facility] Work Phone: Start: 07-31-2024 End: 07-31-2024 Clinisync Result Encounter Generic External Data Provider [facility] External Department Unsolicited Start: 07-31-2024 End: 07-31-2024 Clinisync Result Encounter Generic External Data Provider [facility] External Department Unsolicited Start: 07-27-2024 End: 07-27-2024 Office outpatient visit 15 minutes Lucero Hudson CVICU NURSE Work Phone: [facility] Comment on above: Acute non-recurrent pansinusitis (Primary Dx); Side effect of medication Start: 07-27-2024 End: 07-27-2024 ambulatory MING ESPINOZA Not Available Start: 07-07-2024 End: 07-07-2024 ambulatory [facility] Start: 07-02-2024 End: 07-02-2024 ambulatory [facility] Start: 06-29-2024 End: 06-29-2024 Clinisync Result Encounter [...] Department Unsolicited Start: 05-19-2024 End: 05-19-2024 ambulatory [facility] Start: 04-27-2024 End: 04-27-2024 ambulatory MUNIRA PHAN [facility] Start: 04-23-2024 ambulatory [facility] Start: 04-19-2024 End: 04-19-2024 ambulatory BLAKE HINOJOSA Not Available Start: 04-14-2024 End: 04-14-2024 ambulatory MUNIRA PHAN Not Available Start: 03-23-2024 End: 03-23-2024 ambulatory MING ESPINOZA Not Available Start: 03-15-2024 End: 03-15-2024 ambulatory Andreia Edwards [facility] Work Phone: Start: 03-15-2024 End: 03-15-2024 Departed Referred CECILIA Edwards Work Phone: [facility] [address] [place] Work Phone: Start: 03-15-2024 End: 03-15-2024 Patient encounter procedure MINISTERJohan Edwards Work Phone: [facility] Justin Work Phone: Start: 12-23-2023 End: 12-23-2023 ambulatory MUNIRA PHAN [facility] Start: 12-01-2023 End: 12-01-2023 ambulatory MING ESPINOZA Not Available Start: 11-06-2023 End: 11-06-2023 Patient encounter procedure DO Ming Espinoza Work Phone: [facility] [address] Work Phone: Start: 11-06-2023 End: 11-06-2023 ambulatory DO Ming Espinoza Work Phone: [facility] Work Phone: Start: 10-13-2023 End: 10-13-2023 ambulatory MING ESPINOZA Not Available Start: 07-30-2022 End: 07-30-2022 ambulatory Yaneth Toni Other [employer] Other Start: 07-30-2022 Office outpatient vi sit 25 minutes Yaneth Toni [facility] Start: 07-29-2022 End: 07-30-2022 ambulatory YANETH TONI Facility: Start: 07-16-2022 End: 07-16-2022 ambulatory DO Ming Espinoza Work Phone: [facility] Work Phone: Start: 07-16-2022 End: 07-16-2022 Patient encounter procedure DO Ming Espinoza Work Phone: [facility] Start: 07-03-2022 End: 07-03-2022 ambulatory Estefania Vo Other [employer] Other Start: 07-03-2022 Follow-up encounter Estefania Camarillogary [facility] Start: 06-20-2022 End: 06-20-2022 ambulatory Jesus Parham Other [employer] Other Start: 06-20-2022 Telephone encounter Jesus adler [facility] Start: 06-20-2022 End: 06-20-2022 Emergency department patient visit DO Ming Espinoza Work Phone: [facility]-Emergency Room Start: 06-18-2022 End: 06-18-2022 Admission to same day surgery center DO Ming Espinoza Work Phone: [facility]-Surgery [facility] [place] Start: 06-14-2022 End: 06-14-2022 Patient encounter procedure DO Ming Ibarraman Work Phone: [facility]-Pre-Surgical Testing Start: 06-06-2022 End: 06-07-[address] BRINDA HINOJOSA Facility: Start: 06-05-2022 End: 06-05-2022 Patient encounter procedure DO Ming Espinoza Work Phone: [facility]-Pre-Surgical Testing Start: 06-03-2022 End: 06-03-2022 ambulatory Jesus Parham Other [employer] Other Start: 06-03-2022 Encounter for other preprocedural examination Jesus Parham [facility] Start: 06-03-2022 Telephone encounter Jesus adler [facility] Start: 05-30-2022 End: 05-30-2022 ambulatory Jesus Parham Other [employer] Other Start: 05-30-2022 FQHC visit new patient Jesus Montanez philanna [facility] Start: 05-30-2022 End: 05-30-2022 Patient encounter procedure DO Ming Espinoza Work Phone: [facility] Start: 05-29-[address] BLAKE HINOJOSA [facility] ity:H1 Start: 05-02-2022 End: 05-02-2022 ambulatory Yaneth Toni Other [employer] Other Start: 05-02-2022 Office outpatient vi sit 25 minutes Yaneth Toni [facility] Nephrology Start: 04-30-2022 End: 04-30-2022 ambulatory Dipika Stinson Other [employer] Other Start: 04-30-2022 Office outpatient vi sit 15 minutes Dipika Stinson [facility] Start: 04-30-2022 Encounter for preprocedural laboratory examination YANETH TONI [facility] Start: 04-29-2022 Encounter for other preprocedural examination DR DOCTOR ALEJANDRO [facility] Start: 04-27-2022 End: 04-28-2022 Encounter for other preprocedural examination DR MING ESPINOZA Facility:H1 Start: 04-27-2022 End: 04-28-[address] MING ESPINOZA Facility:[facility]1 Start: 04-27-2022 End: 04-28-2022 Encounter for preprocedural laboratory examination YANETH TONI Facility:[facility]1 Start: 04-03-2022 Encounter for other specified special examinations DR DOCTOR ALEJANDRO [facility] Start: 04-01-2022 End: 04-01-2022 Admission to same day surgery center DO Ming Espinoza Work Phone: [facility]-Digestive Health Start: 03-29-2022 End: 03-30-[address] DOCTOR ALEJANDRO Facility:[facility]1 Start: 03-29-2022 End: 03-30-2022 Encounter for other specified special examinations DR DOCTOR ALEJANDRO Facility:H1 Start: 03-28-2022 End: 03-28-2022 Patient encounter procedure DO Ming Ibarraman Work Phone: [facility]-Pre-Surgical Testing Start: 02-26-2022 End: 02-26-2022 ambulatory Shabbir Jones Other [employer] Other Start: 02-26-2022 Telephone encounter Shabbir VELAZQUEZ [employer] Start: 12-06-2021 End: 12-06-2021 ambulatory Yaneth Toni Other [employer] Other Start: 12-06-2021 Office outpatient vi sit 25 minutes Yaneth Toni [facility] Start: 12-03-2021 End: 12-04-2021 ambulatory YANETH TONI Facility:[facility]1 Start: 09-01-2021 End: 09-02-[address] MING ESPINOZA Facility:[facility]1 Start: 08-02-2019 End: 08-02-2019 Emergency department patient visit [facility] Start: 08-02-2019 End: 08-02-2019 Emergency department patient visit Vidaljasmin Madrigal Work Phone: [facility] ED Comment on above: Acute sepsis [...] Provider Start: 10-02-2024 [facility] CMP (CMP) (FOR [facility] USE) Generic External Data Provider Start: 10-02-2024 [...] Provider Start: 08-31-2024 [facility] CMP (CMP) (FOR [facility] USE) Generic External Data Provider Start: [...] manufacturers or methods may not be comparable. [facility] certified cytotechnologist and method: [employer] UNICEL DXI, 2 SITE IMMUNOENZYMATIC SANDWICH ASSAY. Start: 08-02-2024 Plain chest X-ray DO Chong Espinoza Work Phone: Start: 08-02-2024 Carcinoembryonic ant igen cea Blake Hinojosa DO Work Phone: Comment on above: Result Comment: Seri al tumor marker results determined by assays using different manufacturers or methods may not be comparable. [facility] certified cytotechnologist and method: [employer] UNICEL DXI, 2 SITE IMMUNOENZYMATIC ?SANDWICH? ASSAY. PERFORMED BY: [facility] [address] [place] [address] PATHOLOGIST FIRER DIESEL LOCOMOTIVE ANAHY MCKEE M.D. Performed By: #### C A125 ####[facility] ,#### CEA ####[facility] [place] [address] [facility] Start: 08-02-2024 Immunoassay tumor an [...] mammography of bilateral breasts DO Ming Espinoza [employer] Phone: Start: 06-18-2022 Arteriovenous fistulization DO Ming Espinoza [employer] Phone: Start: 05-30-2022 Ultrasound (US) dopp ler flow mapping of vein of upper limb DO Ming Espinoza [employer] Phone: Start: 04-01-2022 Screening colonoscopy D O [...] for malign ant neoplasm of colon [facility] Start: 08-25-2025 Screening for malign ant neoplasm of breast Mammogram [facility] Start: 04-23-2025 Urine screening for protein Diabetes: Urine Protein Screening [facility] Start: 04-01-2025 End: 04-01-2025 Patient encounter procedure 04/01/2025 8:15 AM EDT Office Visit [facility] [address] [place], [place] [address] Ming Espinoza, DO [address] [place] [address] [facility] Start: 10-14-2024 Bacteria identified in Urine by Culture Urine Culture [facility] Start: 10-14-2024 Urine culture [facility] Start: 10-01-2024 End: 10-01-2024 Patient encounter procedure 10/01/2024 8:15 AM EST Office Visit [facility] IM [address] [place], [place] [address] Ming Espinoza, DO [address] [place] [address] [facility] Start: 09-14-2024 End: 09-14-2024 Patient encounter procedure 09/14/2024 8:45 AM EST Office Visit [facility] OB [address] [place], [place] [address] Blake Hinojosa, DO [address] [place] [address] [facility] Start: 08-26-2024 Urine screening for protein Diabetes: Urine Protein Screening [facility] Start: 08-02-2024 End: 08-02-2024 Patient encounter procedure 08/02/2024 11:00 AM EDT Office Visit [facility] [address] [place], [place] [id number] Blake Hinojosa, DO [address] [place] [address] [facility] Start: 08-02-2024 End: 08-02-2024 Professional / ancillary services management 08/02/2024 10:15 AM EDT Ancillary Procedure [facility] [address] [place], [place] [address] [facility] Start: 08-02-2024 [facility] Start: 07-24-2024 Hemoglobin A1c measurement Violet betes: Hemoglobin A1C [facility] Start: 06-06-2024 Influenza vaccination Influenza Vacc ine (#1) [facility] Start: 03-16-2024 Bacteria identified in Urine by Culture [facility] Start: 03-15-2024 Bacteria identified in Urine by Culture [facility] Start: 11-06-2023 [facility] Start: 07-29-2023 Urine screening for protein Diabetes: Urine Protein Screening [facility] Start: 07-16-2023 Screening for malign ant neoplasm of breast Mammogram [facility] Start: 06-18-2022 [facility] Start: 06-18-2022 [facility] Start: 04-01-2022 [facility] Work Phone: Start: 06-06-2019 Influenza vaccination Flu vaccine (# 1) [place], [place] Start: 2015 Lipid screen Lipid screen [place], [place] Start: 1996 Cervical cancer screen Cervical canc er screen [place], [place] Start: 1994 DTaP/Tdap/Td vaccine (1 - Tdap) DTaP/Tdap/Td vaccine (1 - Tdap) [place], [place] Start: 1990 HIV screen HIV screen [place], [place] Start: 1985 Glaucoma screening Diabetes: R etinopathy Screening [facility] Start: 1975 Creatinine monitoring Creatinine mon [place], [place] Start: 1975 Potassium monitoring Potassium monit [place], [place] Start: 1975 Screening for malign ant neoplasm of colon [facility] 24 hour urine measurement [facility] Albumin [Mass/volume ] in Serum or Plasma [facility] Albumin/Globulin ratio [facility] Aldolase measurement [facility] End: 08-02-2019 Bacteria identified Cx Nom (U) Urine Culture Microbiology STAT One Time for 1 Occurrences starting 08/02/2019 until 08/02/2019 [place], [place] Comment on above: One Time for 1 Occur rences starting 08/02/2019 until 08/02/2019 Bacteria identified Cx Nom (U) Urine Culture Microbiology STAT 08/02/2019 1:00 PM EDT [place] Bacteria identified in Urine by Culture URINE CULTURE, ROUTINE Lab Routine 06/10/2024 1:35 PM EDT [facility] CA 125 CA 125 Lab Routi ne Cyst of left ovary Ordered: 08/02/2024 [facility] Comment on above: Ordered: 08/02/2024 Cancer Ag 125 [Units/volume] in Serum or Plasma [facility] Carcinoembryonic Ag [Mass/volume] in Serum or Plasma [facility] Lab Routine Cyst of left ovary Ordered: 08/02/2024 [facility] Work Phone: Comment on above: Ordered: 08/02/2024 End: 08-02-2019 Culture blood #1 Culture blood #1 Microbiology STAT One Time for 1 Occurrences starting 08/02/2019 until 08/02/2019 [place], [place] Comment on above: One Time for 1 Occur rences starting 08/02/2019 until 08/02/2019 End: 08-02-2019 Culture blood #2 Culture blood #2 Microbiology STAT One Time for 1 Occurrences starting 08/02/2019 until 08/02/2019 [place] Comment on above: One Time for 1 Occur rences starting 08/02/2019 until 08/02/2019 EKG 12 Lead EKG 12 Lead ECG STAT 08/02/2019 12:25 PM EDT [place] Electrophoresis: [id number] [facility] Electrophoresis: [id number] [facility] Electrophoresis: beta-globulin [facility] Electrophoresis: laura ma globulin [facility] Globulin [Mass/volum e] in Serum [facility] Homogenous nuclear A b pattern [Titer] in Serum [facility] IgA [Mass/volume] in Serum or Plasma [facility] IgG [Mass/volume] in Serum or Plasma [facility] IgM [Mass/volume] in Serum or Plasma [facility] Immunofixation for Urine Fir [facility] Initiate Oxygen Ther apy Protocol Initiate Oxygen Therapy Protocol Respiratory Care Routine Daily until discontinued starting 08/02/2019, 2 [facility] Comment on above: Daily until disconti nued starting 08/02/2019, 2 completed End: 08-02-2019 Lactate, Sepsis Lactate, Sepsis Lab Timed Now Then Every 2hr for 2 Occurrences starting 08/02/2019 until 08/02/2019, 1 completed [facility] Comment on above: Now Then Every 2hr f or 2 Occurrences starting 08/02/2019 until 08/02/2019, 1 completed Measurement of monoc lonal protein concentration [facility] Nuclear Ab [Titer] i n Serum [facility] Patient Education [facility] Work Phone: Patient referral [facility] Work Phone: Potassium [Moles/vol ume] in Serum or Plasma [facility] Work Phone: Protein [Mass/volume ] in Serum or Plasma [facility] Protein [Mass/volume ] in Urine [facility] Serum immunofixation [facility] Immunizations Immunization Date Immunization Notes Care Provider Chirag [facility] 10-01-2024 Influenza, Madin Roman by Canine Kidney, subunit, trivalent, injectable, contains preservative Ming Espinoza DO Work Phone: [facility] 10-26-2023 Influenza, injectabl e, Madin Sarah Canine Kidney, preservative free, quadrivalent Generic Provider [facility] 10-26-2023 influenza virus vacc ine, unspecified formulation Generic Provider [facility] 10-13-2021 COVID-19 [id number].[id number].S (Ainsley) DO Ming Espinoza Work Phone: [facility] 05-29-2020 influenza, high dose seasonal, preservative-free Generic Provider [facility] 08-11-2019 influenza, injectabl e, madin sarah canine kidney, preservative free Generic Provider [facility] 01-26-2018 pneumococcal polysaccharide vaccine, 23 valent Generic Provider [facility] 07-22-2014 seasonal influenza, intradermal, preservative free Generic Provider [facility] Payers Date Payer Category Payer Private Health Insurance [employer] [id number] 2023 Unknown [employer] M LILLY GANNON [id number] 2023-Present [address] [place] [address] [id number] 2015 Unknown [employer] M [employer] [address] xxxxxxxxx 2015-Present [phone] [address] [place] [address] xxxxxxxxx [id number] [id number] 1975 Unknown [id number] 2.16.840.1.073251.3.579. 2.173 1975 Unknown [id number] 2.16.840.1.389547.3.579. 2.593 1975 Unknown [id number] 2.16.840.1.885666.3.579. 2.593 1975 Unknown [id number] 2.16.840.1.311567.3.579. 2.593 1975 Unknown [id number] 2.16.840.1.045417.3.579. 2.593 1975 Unknown [id number] 2.16.840.1.787793.3.579. 2.593 1975 Unknown [id number] 2.16.840.1.327587.3.579. 2.593 1975 Unknown [id number] 2.16.840.1.426229.3.579. 2.593 1975 Unknown [id number] 2.16.840.1.924452.3.579. 2.593 1975 Unknown [id number] 2.16.840.1.352641.3.579. 2.1259 1975 Unknown [id number] 2.16.840.1.001008.3.579. 2.1259 1975 Unknown [id number] 2.16.840.1.006212.3.579. 2.1259 1975 Unknown [id number] 2.16.840.1.501617.3.579. 2.1259 1975 Unknown [id number] 2.16.840.1.843541.3.579. 2.1259 1975 Unknown [id number] 2.16.840.1.565971.3.579. 2.1259 1975 Unknown [id number] 2.16.840.1.547693.3.579. 2.1259 1975 Unknown [id number] 2.16.840.1.590050.3.579. 2.1259 1975 Unknown [id number] 2.16.840.1.769099.3.579. 2.1259 1975 Unknown [id number] 2.16.840.1.239808.3.579. 2.1259 1975 Unknown [id number] 2.16.840.1.908290.3.579. 2.1259 1959 Self-pay [id number] 1959 Unknown [id number] 1959 Unknown [id number] 2.16.840.1.175159.19 Unknown [id number] 2.16.840.1.541131.19 Unknown [id number] 2.16.840.1.124455.3.579. 2.531 Unknown [id number] 2.16.840.1.833464.3.579. 2.531 Unknown [id number] 2.16.840.1.630502.3.579. 2.531 Unknown [id number] 2.16.840.1.314573.3.579. 2.531 Unknown [id number] 2.16.840.1.108541.3.579. 2.531 Social History Date Type Detail Facility [facility] [employer] [facility] Sex Assigned At Not on file [employer] [facility] Start: 04-19-2024 End: 10-01-2024 Sex Assigned At [employer] Other Start: 06-05-2022 End: 06-20-2022 Tobacco smoking status NHIS Never smoked tobacco (finding) [facility] Start: 1975 Sex Assigned At Female [facility] Start: 03-13-2023 Tobacco use and exposure [...] Start: 08-26-2024 End: 10-15-2024 Sex Female (finding) [facility] Medical Equipment Procedure Code Equipment Code Equipment Origin al Text Equipment Identifier Dates Use as instructed [id number] Start: 06-10-2023 End: 06-09-2024 Goals Date Patient Goal Desired Activity /State Clinical Notes 05-17-2020 to 10-21-2024 Carolras Camacho MA - 09/14/2024 8:45 AM ESTHERYolandajohan Camacho MA - 08/02/2024 11:00 AM Dra Hudson NP - 07/27/2024 8:20 AM EDT [...] she had sepsis and was hospitalized @ [facility] four years ago. She at work today and seems in good humor. [facility] 10-21-2024 Note Pt was notified of n ew order from Dr. Blanchard by phone to complete Keflex 500mg TID for 1 week. Pt informed and verbalized understanding. RX was sent. [facility] 10-21-2024 Note Per phone order of Kody Blanchard. , patient notified via phone call to decrease their medication Myfortic dose twice a day 360 mg , will now be on 360mg twice a day an no need for urology FU at this time. Pt informed by phone and verbalized understanding. [facility] 10-21-2024 Note Pt called wanting to talk to Lu. She has uti sx's with low grade fever, chills, abd pain. She didn't think of this yesterday when she spoke with Lu. She does want to go ahead and get the abx called into [facility] in [facility] 10-20-2024 Note Noted urine culture report showing E coli MDRO from [facility]. Pt reports using BID Methamine after [...] Pt states prior to renal transplant her an/sqq 89(v)15 sonar system journeyman prescribed Bactrim for her to prevent UTIs and she wishes that the E Coli was gone from her urine. Verbalized understanding of colonization. Have asked urology clinic [place] staff via [employer] Secure Chat to contact pt for FU with Dr. Blanchard. Will discuss with this MD plan for return visit. [facility] 10-20-2024 Note Faxed stat request t o [facility] Med Records for results of 10/14/24 urine culture. [facility] 10-12-2024 Note Patient called, stat es she is having urinary burning, urgency and cloudy urine. Denies fever. Has a history of frequent UTI's and sees Dr. Blanchard, follow up appt is scheduled next month. Questions if she can get urine culture order sent to local lab at [facility]. . Per Dr. Monterroso, order sent. Reviewed tac level of 3.7, no changes at this time due to possible infection. Patient verbalized understanding. [facility] 09-14-2024 History of Present illness Narrative Images from the original note were not included. Blake Hinojosa, DO Obstetrics and Gynecology Mandeep Puri 1975 09/14/24 [id number] Ultrasound Follow Up Exam Chief Complaint Patient [...] LOW TRANSVERSE 07/23/2003 COLONOSCOPY 04/01/2022 Dx Diverticulosis UT BREAST REDUCTION 1996 TOTAL ABDOMINAL HYSTERECTOMY 03/19/2017 [...] Time 5:00PM. documented in this encounter [facility] 08-06-2024 Note Patient tac level is 8.2, per Dr Sharla anderson, patient notified to decrease envarsus by 0.5 mg, will now be on 1.5 mg daily of envarsus, repeat level in one week. Patient verbalized understanding. [facility] 08-02-2024 History of Present illness Narrative Images from the original note were not included. Blake D Micaela, DO Obstetrics and Gynecology Mandeep Rhianna Khushi 1975 08/02/24 [id number] Yearly Wellness Exam Chief Complaint Patient presents [...] LOW TRANSVERSE 07/23/2003 COLONOSCOPY 04/01/2022 Dx Diverticulosis UT BREAST REDUCTION 1996 TOTAL ABDOMINAL HYSTERECTOMY 03/19/2017 [...] Time 5:00PM. documented in this encounter [facility] 07-27-2024 History of Present illness Narrative Images [...] essential hypertension ([facility]) Fibromyalgia MICHELLE (iron deficiency anemia) RADHA (obstructive sleep apnea) Renal transplant recipient ([facility]) Type 2 diabetes mellitus with diabetic chronic kidney disease ([facility]) Mixed anxiety and depressive disorder Dyslipidemia ([facility]) Gastroesophageal reflux disease Immunosuppressive management encounter following kidney transplant ([facility]) ADPKD (autosomal dominant polycystic kidney disease) Polyarthritis of multiple sites Anxiety Anemia of renal disease NSTEMI (non-ST elevated myocardial infarction) ([facility]) Polycystic kidney disease Secondary hyperparathyroidism ([facility] Tonsillolith Stage 4 chronic kidney disease ([facility]) Chronic kidney disease, stage 5 ([facility]) Gout Review of Systems Constitutional: Positive for [...] Hudson NP documented in this encounter [facility] 07-09-2024 Note Positive urine cultu re. Per Dr. Blanchard, Macrobid 100 mg BID x 7 days ordered to patient's pharmacy. Pt was informed and verbalized understanding. [facility] 07-07-2024 Note Chief complaint: Rec urrent [...] cyst which she will discuss with her an/sqq 89(v)15 sonar system journeyman. At this point we will recommend continuing the methenamine prophylaxis. She does not prove effective can consider lowering the Myfortic. Sree Blanchard MD [facility] 06-15-2024 Note Patient notified of Augmentin Rx sent in to pharmacy for positive urine culture by NORMA Jasso per [employer] secure chat. Patient verbalizes understanding. [facility] 06-10-2024 Note Patient requests uri ne culture order to be refaxed to [facility]. as the hospital is telling her not received. Order promptly refaxed with confirmation received. Pt advised to FU with coordinator and alternative fax number if hospital reports again no receipt of the order. She acknowledged understanding [facility] 06-09-2024 Note Tac level 3.0, Mg [...] to be faxed to [facility]. [facility] 05-19-2024 Note Chief complaint: Rec urrent [...] back after the CT. Sree Blanchard MD [facility] 04-29-2024 Note Patient urine cultur e/susceptible [...] prior to urology appointment. Patient verbalized understanding. [facility] 04-27-2024 Note 04/27/24 Chief Complaint Patient [...] Txp Referring: Yaneth Muñoz Preferred Pharmacy: [facility] - [place], [place] - [address] [facility] [place] [address] [facility] [place] [address] [facility] [address] [facility]/pharmacy #[id number] - [place], [place] - [address] [facility] [address] [address] [facility] SPECIALTY [address] [address] Subjective Visit Vitals BP 121/60 (BP Location: [...] Dose Status amLODIPine (Norvasc) 10 mg tablet [id number] Yes Take 1 tablet (10 mg) by mouth in the morning. Aguila Parrish MD Taking Active bumetanide (Bumex) 2 mg tablet [id number] Take 1 tablet (2 mg) by mouth in the morning. Patient not taking: Reported on 11/08/2022 Aguila Parrish MD 10/25/22 2359 docusate sodium (Colace) 100 mg capsule [id number] Take 1 capsule (100 mg) by mouth in the morning and at bedtime. Patient not taking: Reported on 09/01/2023 Paty Ansari, NORMA Active DULoxetine (Cymbalta) [address] capsule [id number] Yes Take 1 capsule every day by oral route. Historical ProviderMD Taking Active Envarsus XR 1 mg tablet ER [id number] Yes TAKE 3 TABLETS BY MOUTH ONCE DAILY IN THE MORNING. TAKE ALONG WITH 0.75 MG TABLETS DIRECTED FOR TOTAL DOSE UP TO 4.5 MG PER DAY. Patient taking differently: Take 2 mg by mouth in the morning. Aguila Parrish MD Taking Flag for Review famotidine (Pepcid) 20 mg tablet [id number] Yes Take 1 tablet (20 mg) by mouth in the morning. Patient taking differently: Take 20 mg by mouth if needed. Aguila Parrish MD Taking Active febuxostat (Uloric) 40 mg tablet [id number] Take 0.5 tablets every day by oral route. Historical ProviderMD Active ferrous sulfate 325 (65 Fe) MG tablet [id number] Yes Take 65 mg by mouth every other day. Historical ProviderMD Taking Active fish oil ([place]-3) 60-90-500 mg capsule [id number] Take 2 capsules (1,000 mg) by mouth in the morning and at bedtime. Patient not taking: Reported on 12/23/2023 Sujit Monterroso MD Active Levemir FlexPen 100 unit/mL (3 mL) pen [id number] INJECT 12 UNITS SUBCUTANEOUS IN AM 30 DAYS Historical ProviderMD Active magnesium oxide (Mag-Ox) 400 mg (241.3 mg magnesium) tablet [id number] Yes TAKE 2 TABLETS BY MOUTH IN THE MORNING AND 2 TABLETS AT BEDTIME Sree Blanchard MD Taking Active mycophenolate (Myfortic) 180 mg EC tablet [id number] Yes Take 4 tablets (720 mg) by mouth in the morning and at bedtime. Aguila Parrish MD Taking Active oxyCODONE-acetaminophen (Percocet) 5-325 mg tablet [id number] Take 1 tablet by mouth every 6 (six) hours if needed for severe pain (8-10 pain score) for up to 20 doses. Patient not taking: Reported on 09/01/2023 Paty Ansari NP Active potassium chloride CR (Klor-Con M20) 20 mEq ER tablet [id number] Yes Take 1 tablet (20 mEq) by mouth in the morning. Do not crush or chew. Andrea Elizondo MD Taking Active pravastatin (Pravachol) 40 mg tablet [id number] Yes Take 1 tablet (40 mg) by mouth at bedtime. Patient taking differently: Take 40 mg by mouth at bedtime. 40 mg 4 times a week. Fri Kevin Raymond MD Taking Active semaglutide (Ozempic) 2 mg/dose (8 mg/3 mL) pen injector [id number] Yes Inject 2 mg under the skin every 7 (seven) days. Historical Provider, Taking Active tacrolimus ER (Envarsus XR) 0.75 mg tablet ER [id number] Yes Take 2 tablets (1.5 mg) by mouth in the morning. Script total 4.5 mg daily Priyanka Villanueva MD Taking Active tacrolimus ER (Envarsus XR) 1 mg tablet ER [id number] Yes Take 3 tablets (3 mg) by mouth in the morning. Script total 4.5 mg daily Priyanka Villanueva MD Taking Active Immunization History Administered Date(s) Administered Ainsley Sars-Cov-2 Vaccination 10/13/2021 Patient Active Problem List Diagnosis Anxiety COVID-19 Depressive disorder Gastroesophageal reflux disease Gout Primary hyper (more content not included)... [facility] 04-23-2024 Note Patient TAC level, 1 [...] making change in dose. Patient verbalized understanding. [facility] 04-21-2024 Note Patient called, stat es [...] urine culture to be done, voiced understanding. [facility] 03-25-2024 Note Patient called, stat es PCP stopped Bactrim and started Keflex for E-coli in urine. On 500 mg tid x 7 days. Advised to hydrate well and get labs, repeat urine culture once completed. Voiced understanding. [facility] 03-16-2024 Note Patient called stati adair she is currently being treated for a UTI with bactrim BID for 7 days. [facility] 02-25-2024 Note Received a call from the patient regarding the non-compliant lab letter. Explained to the patient that we had gotten some labs on her but not a CMP or BMP. Patient stated that she has always gotten her labs drawn at [facility]. She will be getting labs drawn tomorrow and she will make sure that the draw the correct labs and have the results sent to us. [facility] 12-23-2023 Note 12/23/23 Chief Complaint Patient presents with Kidney Follow-up Pt has questions about her lab work. PCP: Ming Espinoza MD Txp Referring: Yaneth Muñoz [facility] Pharmacy: [facility] - [place], [place] - [address] [place] [address] [place] [address] [facility] [address] [facility][id number] - [place] [address] [facility] [address] [address] [facility] [address] [place] [address] [facility] [place] [address] Subjective Visit Vitals BP 116/73 (BP Location: [...] Review Audit Reviewed by Trupti Sanchez MA (Home Delivery Driver) on 12/23/23 at 1430 Medication Order Taking? Sig Documenting Provider Last Dose Status amLODIPine (Norvasc) 10 mg tablet [id number] Take 1 tablet (10 mg) by mouth in the morning. Aguila Parrish MD 10/24/23 2359 bumetanide (Bumex) 2 mg tablet [id number] Take 1 tablet (2 mg) by mouth in the morning. Patient not taking: Reported on 11/08/2022 Aguila Parrish MD 10/25/22 2359 docusate sodium (Colace) 100 mg capsule [id number] Take 1 capsule (100 mg) by mouth in the morning and at bedtime. Patient not taking: Reported on 09/01/2023 Paty Ansari, NORMA Active DULoxetine (Cymbalta) [address] capsule [id number] Yes Take 1 capsule every day by oral route. Historical ProviderMD Taking Active Envarsus XR 1 mg tablet ER [id number] Yes TAKE 3 TABLETS BY MOUTH ONCE DAILY IN THE MORNING. TAKE ALONG WITH 0.75 MG TABLETS DIRECTED FOR TOTAL DOSE UP TO 4.5 MG PER DAY. Patient taking differently: Take 2 mg by mouth in the morning. Aguila Parrish MD Taking Active famotidine (Pepcid) 20 mg tablet [id number] Yes Take 1 tablet (20 mg) by mouth in the morning. Patient taking differently: Take 20 mg by mouth if needed. Aguila Parrish MD Taking Active febuxostat (Uloric) 40 mg tablet [id number] Take 0.5 tablets every day by oral route. Historical ProviderMD Active ferrous sulfate 325 (65 Fe) MG tablet [id number] No Take 65 mg by mouth every other day. Historical ProviderMD Not Taking Active fish oil ([place]-3) 60-90-500 mg capsule [id number] No Take 2 capsules (1,000 mg) by mouth in the morning and at bedtime. Patient not taking: Reported on 12/23/2023 Sujit Monterroso MD Not Taking Active Levemir FlexPen 100 unit/mL (3 mL) pen [id number] No INJECT 12 UNITS SUBCUTANEOUS IN AM 30 DAYS Historical Provider, Not Taking Flag for Review magnesium oxide (Mag-Ox) 400 mg (241.3 mg magnesium) tablet [id number] Yes TAKE 2 TABLETS BY MOUTH IN THE MORNING AND 2 TABLETS AT BEDTIME Sree Blanchard MD Taking Active mycophenolate (Myfortic) 180 mg EC tablet [id number] Yes Take 4 tablets (720 mg) by mouth in the morning and at bedtime. Aguila Parrish MD Taking Active oxyCODONE-acetaminophen (Percocet) 5-325 mg tablet [id number] Take 1 tablet by mouth every 6 (six) hours if needed for severe pain (8-10 pain score) for up to 20 doses. Patient not taking: Reported on 09/01/2023 Paty Ansari NP Active potassium chloride CR (Klor-Con M20) 20 mEq ER tablet [id number] Yes Take 1 tablet (20 mEq) by mouth in the morning. Do not crush or chew. Andrea Elizondo MD Taking Active pravastatin (Pravachol) 40 mg tablet [id number] Yes Take 1 tablet (40 mg) by [...] Smokeless tobacco: Cara (more content not included)... [facility] 07-30-2022 Evaluation note Encounter Date Diagnosis [...] She has gout and follows with a track repair laborer. She takes Urolic and denies any recent gout flare Jul, Metabolic acidemia, unspecified (ICD-10 - P19.9) She has metabolic acidosis due to the advanced CKD. Continue oral Sodium Bicarbonate [facility] Other 09-28-2022 Evaluation note* Encounter Date Diagnosis [...] disease, unspecified CKD stage (ICD-10 - N18.9) [facility] Encounter Date Diagnosis Assessment Notes Treatment Notes Treatment Clinical Notes May, Pre-op testing (ICD-10 - Z01.818) Roxana Halldis Other 08-25-2022 Evaluation note* Encounter Date Diagnosis [...] will schedule this in the near future. [facility] Other 07-28-2022 Evaluation note* Encounter Date Diagnosis [...] explained to her the potential need of LIGHT RAIL SIGNAL TECHNICIAN in future. I discussed with her different options of LIGHT RAIL SIGNAL TECHNICIAN including PD, HTN renal transplant. I provide [...] stephens s gout and follows with a track repair laborer. She takes Urolic and denies any recent gout flare [facility] Other 07-26-2022 Evaluation note* Encounter Date Diagnosis [...] care provider if no improvement of symptoms. [facility] Other 05-24-2022 Evaluation note* Encounter Date Diagnosis Assessment Notes Treatment Notes Treatment Clinical Notes February, Screening for colon cancer (ICD-10 - Z12.11) [facility] Other 03-03-2022 Evaluation note* Encounter Date Diagnosis [...] explained to her the potential need of LIGHT RAIL SIGNAL TECHNICIAN in future. I discussed with her different options of LIGHT RAIL SIGNAL TECHNICIAN including PD, HTN renal transplant. I provide [...] She has gout and follows with a track repair laborer. She takes Urolic and denies any recent gout flare [facility] Other 06-25-2021 NotePatient Outreach (NEPHMN) MANDEEP PURI ([id number]) 1975 F Date Time Provider Department 03/30/21 PERRI BARRETT During your visit today, we recorded the following information about you: Allergies As of Date: 03/30/2021 Noted Allergy Reaction ALLOPURINOL 08/02/2019 4 - Hives Date Reviewed: 03/30/2021 Reviewed by: Perri Barrett MD - Fully Assessed Visit Diagnosis:Screening for genitourinary condition [Z13.89] Order(s):URINALYSIS, DIPSTICK ONLY [SQUA] Order #: [id number]. #:[id number] Prescriptions as of 03/30/2021 Sig: DULOXETINE 60 [...] dominant polycystic kidney dis*03/30/2021 Encounter Status:Closed by [employer], PRODUSER on 04/02/21[facility] 03-30-2021 NoteHNO ID: [id number] Author: Preri Barrett MD Service: ? Author Type: Physician Type: Progress Notes Filed: 03/30/2021 10:25 AM Note Text: Mrs. 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 sirolimus [facility]rapamycin) [facility] History general Narrative - Reported * Type Description Date Medical History HTN (hypertension) Medical History Anxiety Medical History polycystic kidneys Medical History COVID 05-17-2020 Surgical History C section Surgical History BREAST REDUCTION Hospitalization History child Hospitalization History KIDNEY INFECTION 07/2019 Hospitalization History COVID AND DEHYDRATION [facility] Other 08-12-2020 History general Narrative - Reported* Type Description Date Medical History HTN (hypertension) Medical History Anxiety Medical History polycystic kidneys Medical History COVID 05-17-2020 Medical History end stage renal disease Surgical History C section Surgical History BREAST REDUCTION Surgical History colonoscopy 04/01/2022 Surgical History wisdom teeth 03/24/2022 Hospitalization History child Hospitalization History KIDNEY INFECTION 07/2019 Hospitalization History COVID AND DEHYDRATION [facility] Other 08-12-2020 History general Narrative - Reported* [...] INFECTION 07/2019 Hospitalization History COVID AND DEHYDRATION [facility] Other 08-12-2020 History general Narrative - Reported* [...] INFECTION 07/2019 Hospitalization History COVID AND DEHYDRATION [facility] Other evaluation noteNo assessment information available [facility] Work Phone: evaluation noteNo InformationNort Halldis Other evalucwyfo note* Diagnosis Onset Date Resolution Status Dysuria acute UTI (urinary tract infection) acute [facility] Work Phone: evaluation note* Diagnosis [...] [facility]* Diagnosis Benign essential hypertension ([facility]/HCC)- Primary Essential hypertension, benign Renal transplant recipient ([facility]) Immunosuppressive management encounter following kidney transplant ([facility]) Encounter for long-term (current) use of other medications Anemia of renal disease Anemia in chronic kidney disease Iron deficiency anemia, unspecified iron deficiency anemia type Type 2 diabetes mellitus with stage 3a chronic kidney disease, without long-term current use of insulin (HCC) ([facility]) Dyslipidemia (CMS/HCC) Other and unspecified hyperlipidemia Fibromyalgia [...] FoundDocuments on File Type Date Recorded Patient Beauty Consultant Expl anation Advance Directives and Living Will Power of Geometry Professor Advance Directive Response Recorded Date/ Time Advance [...] DATE CREATED AUTHOR AUTHOR'S ORGANIZ ATION [facility] DATE CREATED AUTHOR AUTHOR'S ORGANIZ ATION 09/12/[address] [facility] ical Center DATE CREATED AUTHOR AUTHOR'S ORGANIZ ATION 11/07/2021 [facility] DATE CREATED AUTHOR AUTHOR'S ORGANIZ ATION 02/27/[address] [facility] DATE CREATED AUTHOR AUTHOR'S ORGANIZ ATION 08/04/2022 [facility] DATE CREATED AUTHOR AUTHOR'S ORGANIZ ATION 10/02/2024 [facility] dical Specialists EPIC DATE CREATED AUTHOR AUTHOR'S ORGANIZ ATION 10/19/2024 [facility] ysician Group DATE CREATED AUTHOR AUTHOR'S ORGANIZ ATION 10/26/2024 [facility] Care Teams (unrecognized sec tion and [...] March 15, 2024 End: March 15, 2024 Brilliandeer Looper Relationship Specialty Start Date End Date Ming Espinoza DO [address] [place] [address] PCP - Medical [employer] 10/06/21 10/05/99 Ming Espinoza DO [address] [place] [address] PCP - General Internal Medicine 05/02/23 Brilliandeer Looper Relationship Specialty Start Date End Date Ming Espinoza DO [address] [place] [address] PCP - Medical [employer] 10/06/21 10/05/99 Ming Espinoza DO [address] [place] [address] PCP - General Internal Medicine 05/02/23 Brilliandeer Looper Relationship Specialty Start Date End Date Ming Espinoza DO [address] [place] [address] PCP - Medical [employer] 10/06/21 10/05/99 Ming Espinoza DO [address] [place] [address] PCP - General Internal Medicine 05/02/23 Brilliandeer Looper Relationship Specialty Start Date End Date Ming Espinoza DO [address] [place] [address] PCP - Medical [employer] 10/06/21 10/05/99 Ming Espinoza DO [address] [place] [address] PCP - General Internal Medicine 05/02/23 Team [...] August 25, 2024 End: August 25, 2024 Brilliandeer Looper Relationship Specialty Start Date End Date Ming Espinoza DO [address] [facility] [address] [place] [address] PCP - Medical [employer] 10/06/21 10/05/99 Ming Espinoza DO [address] [facility] [address] [place] [address] PCP - General Internal Medicine 05/02/23 Brilliandeer Looper Relationship Specialty Start Date End Date Ming Espinoza DO [address] [place] [address] PCP - Medical [employer] 10/06/21 10/05/99 Ming Espinoza DO [address] [place] [address] PCP - General Internal Medicine 05/02/23 Brilliandeer Looper Relationship Specialty Start Date End Date Ming Espinoza DO [address] [place] [address] PCP - Medical [employer] 10/06/21 10/05/99 Ming Espinoza DO [address] [place] [address] PCP - General Internal Medicine 05/02/23 Brilliandeer Looper Relationship Specialty Start Date End Date Ming Espinoza DO [address] [place] [address] PCP - Medical [employer] 10/06/21 10/05/99 Ming Espinoza DO [address] [place] [address] PCP - General Internal Medicine 05/02/23 Brilliandeer Looper Relationship Specialty Start Date End Date Ming Espinoza DO [address] [place] [address] PCP - Medical [employer] 10/06/21 10/05/99 Ming Espinoza DO [address] [place] [address] PCP - General Internal Medicine 05/02/23 Team [...] BE BASED ON THE PRIMARY CLINICAL RECORDS. [employer] [facility]. provides no warranty or guarantee of the accuracy or completeness of information in this document.
--- NOTE | 2024-11-04 21:05 | ED.GENADUL1 ---
HPI HPI - General Adult General Chief complaint: Abdominal Pain Stated complaint: ABDOMINAL PAIN Time Seen by Provider: 11/04/24 20:44 Source: patient Mode of arrival: walk-in History of Present Illness HPI narrative: 48-year-old female presents for possible UTI. She is complaining of burning in the suprapubic area but she has a fullness feeling in the epigastric and right upper abdomen. She states that this has been an ongoing thing for months and she has been to multiple doctors. She had a kidney transplant 2 years ago and she has talked to her transplant team and she is also seeing her computer numerical control machinist and urologist. She has been on antibiotics several times for UTIs. She has had a hysterectomy. No trauma fever or vomiting. Related Data Home Medications ?Medication ?Instructions ?Recorded ?Confirmed amlodipine 10 mg tablet 20 mg PO DAILY 03/22/24 03/22/24 duloxetine 60 mg capsule,delayed 60 mg PO DAILY 03/22/24 03/22/24 release magnesium oxide 400 mg (241.3 mg 400 mg PO BID 03/22/24 03/22/24 magnesium) tablet mycophenolate sodium 180 mg 720 mg PO Q12H 03/22/24 03/22/24 tablet,delayed release potassium chloride 20 mEq 20 meq PO DAILY 03/22/24 03/22/24 tablet,extended release(part/cryst) (Klor-Con M) pravastatin 40 mg tablet 40 mg PO .three times a week 03/22/24 03/22/24 tacrolimus 1 mg tablet,extended 1 mg PO DAILY 03/22/24 03/22/24 release 24 hr (Envarsus XR) Previous Rx's ?Medication ?Instructions ?Recorded cephalexin 500 mg capsule 500 mg PO Q6H 7 days #28 caps 03/22/24 ciprofloxacin HCl 250 mg tablet 250 mg PO BID #14 tabs 11/04/24 (Cipro) Allergies Allergy/AdvReac Type Severity Reaction Status Date / Time allopurinol Allergy Mild Hives Verified 03/22/24 00:56 venlafaxine (From Effexor) Allergy Mild Hives Verified 03/22/24 00:56 Opioid HPI Opioid Management Most Recent Opioid Data: No Data to Display Review of Systems ROS Narrative A ten point review of systems is negative except as noted above. [facility] Medical History (Updated 11/04/24 @ 22:53 by Rashel Vargas MD) High cholesterol ?E78.00 - Pure hypercholesterolemia, unspecified (ICD-10) Hypertension ?I10 - Essential (primary) hypertension (ICD-10) Surgical History (Updated 03/22/24 @ 01:10 by Ankush Brambila) Kidney transplant recipient ?Z94.0 - Kidney transplant status (ICD-10) Social History Little interest or pleasure in doing things: not at all Feeling down, depressed, or hopeless: not at all Exam Narrative Exam Narrative: Nurses note and vital signs reviewed and patient is not hypoxic. General: The patient appears well and in no apparent distress. Patient is resting comfortably on cart. Skin: Warm, dry, no pallor noted. There is no rash noted. Head: Normocephalic, atraumatic Eye: Normal conjunctiva, no drainage Ears, Nose, Mouth, and Throat: oral mucosa is moist. Nares patent. Cardiovascular: Regular Rate and Rhythm Respiratory: Patient is in no distress, no accessory muscle use, lungs are clear to auscultation, no wheezing, rales or rhonchi Back: non-tender, no CVA tenderness bilaterally to percussion. GI: Soft and nondistended. No rebound or guarding. Musculoskeletal: The patient has no evidence of calf tenderness, no pitting edema, symmetrical pulses noted bilaterally Neurological: A&O, normal speech Psychiatric: Cooperative Constitutional Vital Signs, click to edit/add: Last Vital Signs Temp 98.3 F 11/04/24 20:47 Pulse 95 H 11/04/24 20:47 Resp 18 11/04/24 20:47 BP 135/70 11/04/24 20:47 Pulse Ox 98 11/04/24 20:47 O2 Del Method Room Air 11/04/24 20:47 Course Vital Signs Vital signs: Vital Signs Temperature 98.3 F 11/04/24 20:47 Pulse Rate 95 H 11/04/24 20:47 Respiratory Rate 18 11/04/24 20:47 Blood Pressure 135/70 11/04/24 20:47 Pulse Oximetry 98 11/04/24 20:47 Oxygen Delivery Method Room Air 11/04/24 20:47 Temperature 98.3 F 11/04/24 20:47 Pulse Rate 95 H 11/04/24 20:47 Respiratory Rate 18 11/04/24 20:47 Blood Pressure 135/70 11/04/24 20:47 Pulse Oximetry 98 11/04/24 20:47 Oxygen Delivery Method Room Air 11/04/24 20:47 Medical Decision Making MDM Narrative Medical decision making narrative: UTI is identified. Culture is ordered. She was given IV Rocephin and prescribed Cipro with culture pending. Blood work is essentially normal and her WBC is 8.9. Creatinine is at her baseline of 1.38. I do not feel that a CAT scan is warranted. Treatment diagnosis and follow-up were discussed with the patient. Differential Diagnosis Differential Diagnosis: UTI, pyelonephritis, renal failure Lab Data Lab results reviewed: Yes I reviewed the patient's lab results Labs: Lab Results 11/04/24 11/04/24 Range/Units 20:55 21:27 WBC 8.9 (4.0-11.0) 10^3/uL RBC 4.11 L (4.20-5.40) 10^6/uL Hgb 11.3 L (12.0-16.0) g/dL Hct 35.0 L (36.0-48.0) % MCV 85.2 (81.0-99.0) fL MCH 27.5 (26.7-34.0) pg MCHC 32.3 (29.9-35.2) g/dL RDW 14.8 (11.0-15.0) % Plt Count 230 (150-450) 10^3/uL MPV 8.6 L (9.5-13.5) fL Neut % (Auto) 76.9 H (43.0-75.0) % Lymph % (Auto) 13.6 L (20.5-60.0) % [place] % (Auto) 6.7 (1.7-12.0) % Eos % (Auto) 2.1 (0.9-7.0) % Baso % (Auto) 0.4 (0.2-2.0) % Neut # (Auto) 6.9 H (1.4-6.5) 10^3/uL Lymph # (Auto) 1.2 (1.2-3.8) 10^3/uL [place] # (Auto) 0.6 (0.3-0.8) 10^3/uL Eos # (Auto) 0.2 (0.0-0.7) 10^3/uL Baso # (Auto) 0.0 (0.0-0.1) 10^3/uL Abs Immat Gran (auto) 0.03 (0.00-0.03) 10^3/uL Imm/Tot Granulo (auto) 0.3 (0.0-0.5) % Sodium 138 (136-145) mmol/L Potassium 3.6 (3.5-5.1) mmol/L Chloride 101 (98-107) mmol/L Carbon Dioxide 27.6 (21.0-32.0) mmol/L Anion Gap 13.0 BUN 18.0 (7.0-18.0) mg/dL Creatinine 1.38 H (0.55-1.02) mg/dL Est GFR ( Amer) 49 L (>=60 mL/min/1.73m^2) Est GFR (Non-Af Amer) 41 L (>=60 mL/min/1.73m^2) BUN/Creatinine Ratio 13.0 Glucose 123 H (74-106) mg/dL Calcium 9.1 (8.5-10.1) mg/dL Total Bilirubin 0.6 (0.2-1.0) mg/dL Direct Bilirubin 0.1 (0.0-0.2) mg/dL AST 12 L (15-37) U/L ALT 17 (14-59) U/L Alkaline Phosphatase 91 (46-116) U/L Total Protein 7.1 (6.4-8.2) g/dL Albumin 3.5 (3.4-5.0) g/dL Globulin 3.6 g/dL Albumin/Globulin Ratio 1.0 Amylase 43 (25-115) U/L Lipase 35.0 (16.0-77.0) U/L Urine Color Lt. yellow (YELLOW) Urine Clarity Sl cloudy (CLEAR) Urine pH 6.0 (5.0-9.0) Ur Specific [place] <=1.005 A (1.005-1.025) Urine Protein Negative (NEG/TRACE) mg/dL Urine Glucose (UA) Negative (NEGATIVE) mg/dL Urine Ketones Negative (NEGATIVE) mg/dL Urine Occult Blood Small A (NEGATIVE) Urine Nitrite Negative (NEGATIVE) Urine Bilirubin Negative (NEGATIVE) Urine Urobilinogen 0.2 (0.2-1.0) EU/dL Ur Leukocyte Esterase Large A (NEGATIVE) Urine RBC 0-2 (0-2) #/HPF Urine WBC 50-75 A (NONE SEEN) #/HPF Ur Squamous Epith Cells Few A (NONE/RARE) #/LPF Urine Crystals None seen (None Seen) #/HPF Urine Bacteria Moderate A (NONE SEEN) #/HPF Urine Casts None seen (NONE SEEN) #/LPF Urine Mucus None seen (NONE SEEN) Ur Culture Indicated? Yes Discharge Plan Discharge Chief Complaint: Abdominal Pain Clinical Impression: Urinary tract infection Patient Disposition: Home, Self-Care Time of Disposition Decision: 22:53 Condition: Good Mode of Transportation: Private Vehicle Prescriptions / Home Meds: New ciprofloxacin HCl [Cipro] 250 mg tablet 250 mg PO BID Qty: 14 0RF No Action Envarsus XR 1 mg tablet extended release 24 hr 1 mg PO DAILY amlodipine 10 mg tablet 20 mg PO DAILY mycophenolate sodium 180 mg tablet,delayed release (DR/EC) 720 mg PO Q12H magnesium oxide 400 mg (241.3 mg magnesium) tablet 400 mg PO BID potassium chloride [Klor-Con M20] 20 mEq tablet,ER particles/crystals 20 meq PO DAILY duloxetine 60 mg capsule,delayed release(DR/EC) 60 mg PO DAILY pravastatin 40 mg tablet 40 mg PO .three times a week cephalexin 500 mg capsule 500 mg PO Q6H 7 Days Qty: 28 0RF Print Language: Kiswahili Instructions: Urinary Tract Infection in Women (ED) Referrals: DAVE ESPINOZA [Primary Care Provider] - 1 week
[2024-11-04 21:39] LABS: Basophils Percent Auto 0.4 % (0.2-2.0); Eosinophils Absolute Auto 0.2 10^3/uL (0.0-0.7); Eosinophils Percent Auto 2.1 % (0.9-7.0); Hemoglobin 11.3 g/dL (12.0-16.0); Immature Granulocytes Abs Auto 0.03 10^3/uL (0.00-0.03); Immature Granulocytes Pct Auto 0.3 % (0.0-0.5); Lymphocytes Absolute Auto 1.2 10^3/uL (1.2-3.8); Lymphocytes Percent Auto 13.6 % (20.5-60.0); Mean Corpuscular HGB Conc 32.3 g/dL (29.9-35.2); Mean Corpuscular Hemoglobin 27.5 pg (26.7-34.0); Mean Corpuscular Volume 85.2 fL (81.0-99.0); Mean Platelet Volume 8.6 fL (9.5-13.5); Monocytes Absolute Auto 0.6 10^3/uL (0.3-0.8); Monocytes Percent Auto 6.7 % (1.7-12.0); Neutrophils Absolute Auto 6.9 10^3/uL (1.4-6.5); Neutrophils Percent Auto 76.9 % (43.0-75.0); Platelet Count 230 10^3/uL (150-450); Red Blood Count 4.11 10^6/uL (4.20-5.40); Red Cell Distribution Width 14.8 % (11.0-15.0); White Blood Count 8.9 10^3/uL (4.0-11.0)
[2024-11-04 21:40] LABS: Bilirubin Urine NEGATIVE (NEGATIVE); Blood Urine SMALL (NEGATIVE); Clarity Urine SL CLOUDY (CLEAR); Color Urine LT. YELLOW (YELLOW); Glucose Urine UA NEGATIVE (NEGATIVE); Ketones Urine NEGATIVE (NEGATIVE); Leukocyte Esterase Urine LARGE (NEGATIVE); Nitrite Urine NEGATIVE (NEGATIVE); Protein Urine NEGATIVE (NEG/TRACE); Specific Gravity Urine <=1.005 (1.005-1.025); Urobilinogen Urine 0.2 EU/dL (0.2-1.0)
[2024-11-04 21:49] LABS: Bacteria Urine MODERATE #/HPF (NONE SEEN); Cast Seen? NONE SEEN #/LPF (NONE SEEN); Crystals Seen? None Seen #/HPF (None Seen); Mucus Urine NONE SEEN (NONE SEEN); RBC Urine 0-2 #/HPF (0-2); Squamous Epithelial Cell Urine FEW #/LPF (NONE/RARE); Urine Culture Indicated YES; WBC Urine 50-75 #/HPF (NONE SEEN)
[2024-11-04 21:54] LABS: Alanine Aminotransferase 17 U/L (14-59); Albumin Level 3.5 g/dL (3.4-5.0); Alkaline Phosphatase 91 U/L (46-116); Amylase 43 U/L (25-115); Aspartate Amino Transferase 12 U/L (15-37); Bilirubin Direct 0.1 mg/dL (0.0-0.2); Bilirubin Total 0.6 mg/dL (0.2-1.0); Calcium 9.1 mg/dL (8.5-10.1); Carbon Dioxide 27.6 mmol/L (21.0-32.0); Chloride 101 mmol/L (98-107); Estimated GFR (African America 49 (>=60 mL/min/1.73m^2); Estimated GFR (Non-African Ame 41 (>=60 mL/min/1.73m^2); Globulin 3.6 g/dL; Glucose 123 mg/dL (74-106); Potassium 3.6 mmol/L (3.5-5.1); Sodium 138 mmol/L (136-145); Total Protein 7.1 g/dL (6.4-8.2)
[2024-11-04] MEDS: CEFTRIAXONE 1,000 MG in 0.9 % SODIUM CHLORIDE 50 ML 100 MG IV (22:31)
== END 2024-11-04 23:16 | disposition home or self-care (01) ==
PROVIDERS: Emergency Provider Emergency Medicine; PCP Internal Medicine
DX: N39.0 Urinary tract infection, site not specified (principal); Z94.0 Kidney transplant status; Z87.440 Personal history of urinary (tract) infections; Z90.710 Acquired absence of both cervix and uterus
CPT/HCPCS: 36415; 80048; 80076; 81001; 82150; 83690; 85025; 87086; 87150; 87186; 96365; 99284; J0696

== ENCOUNTER 2024-12-03 07:05 | Outpatient (OUT) | payer OTHER, SELFPAY ==
--- OUTSIDE RECORDS SUMMARY | 2024-12-03 07:08 | XMS_ITS | CCD ---
Author Organization [facility] Care Team Providers Care Developing Machine Tender Name Role Phone Ming Espinoza Primary Care Provider VIDAL MADRIGAL Attending Unavailable MING ESPINOZA Primary Care Unavailable Toni, Yaneth Unavailable Shabbir Jones Unavailable Dipika Stinson Unavailable Jesus Parham Unavailable DO Ming Espinoza Primary Care Provider [phone] MD Shabbir Jones Attending Provider MD Yaneth Muñoz Attending Provider MD Jesus Parham Attending Provider [phone] Estefania Vo Unavailable DO Ming Espinoza Primary Care Provider EB Forman Emergency Provider DO Blake Hinojosa Attending Provider [phone] ANGELAC, DR ZARAGOZA Admitting Unavailable DR MING [...] Care Provider MD Perri Ceja Attending Provider [phone] CECILIA Edwards Attending Provider Ming Espinoza DO Unavailable Ming Espinoza DO Primary Care Provider DO Ming Espinoza Primary Care Provider MD Jesus Ayala Attending Provider [phone] DO Blake Hinojosa Referring Provider Ming Espinoza DO Primary Care Provider [phone] Jesus Ayala MD Attending Provider Blake Hinojosa DO Referring Provider Blake Hinojosa DO Attending Provider [phone] MING ESPINOZA Attending Unavailable MING ESPINOZA Referring Unavailable MING ESPINOZA Referring Unavailable LUCERO HUDSON Attending Unavailable MING ESPINOZA Attending Unavailable MUNIRA PHAN Referring Unavailable BLAKE HINOJOSA Attending Unavailable BLAKE HINOJOSA Referring Unavailable MING ESPINOZA Referring Unavailable LUCERO HUDSON Attending Unavailable BLAKE HINOJOSA Attending Unavailable BLAKE HINOJOSA Attending Unavailable MING ESPINOZA Attending Unavailable Sujit Monterroso MD Attending Provider Perri Ceja Attending Unavailable Ming Espinoza [facility] Unavailable Perri Ceja Admitting Unavailable Jerry, Andreia Solano Admitting Unavailable JerryAndreia Attending [facility]available [facility] Unavailable Jesus Ayala Admitting Unavailable Jesus Ayala Attending Unavailable Blake Hinojosa Referring Unavailable Ming Espinoza [facility] Unavailable Dolores, Sujit Admitting Unavailable Dolores, Sujit Attending Unavailable Ming Espinoza [facility] Unavailable Blake Hinojosa Admitting Unavailable Blake Hinojosa Attending Unavailable LO, SREE Attending Unavailable DOLORES, SUJIT Referring Unavailable CRISENBERY, MUNIRA Attending Unavailable CRISENBERY, MUNIRA Attending Unavailable SREE BLANCHARD Referring Unavailable SAVZYAN, LEO Attending Unavailable RABETS, SREE Attending Unavailable Allergies Allergy Classification Reported Allergen(s) Allergy Type Date of Onset Reaction(s) Facility (20 sources) Allopurinol; Translations: [ALLOPURINOL] Drug Allergy 9 hives, Rash [place] (20 sources) venlafaxine; Translations: [venlafaxine] Drug Allergy 2 Rash, Rash, hives [facility] (17 sources) venlafaxine; Translations: [VENLAFAXINE HCL] Drug Allergy 1 [facility] (1 source) Allopurinol Drug Allergy 4 [facility] Repository Medications Current Medications Medication Drug Class(es) Dates Sig (Normalized) Sig (Original) amLODIPine 10 mg oral tablet (20 sources) Dihydropyridine Calcium Channel Eliz Start: 08-21-2023 [...] Start: 04-30-2022 take 1 tablet by denys every twelve hours Amoxicillin-Pot Clavulanate 875-125 MG 1 tablet Orally every 12 hrs for 7 days Apr, Active {1 (ascorbic acid 7540 MG / polyethylene glycol 3350 41931 MG / potassium chloride 1200 MG / sodium ascorbate 72097 MG / sodium chloride 3200 MG Powder for Oral Solution) / 1 (polyethylene glycol 3350 122366 MG / potassium chloride 1000 MG / sodium chloride 2000 MG / sodium sulfate 9000 MG Powder for Oral Solution) } Pack [Plenvu] (1 source) Osmotic Laxative, Vitamin C Start: 02-26-2022 Plenvu 140 GM dose 1 pouch at 4pm, dose 2 pouch A & B at 11pm Orally twice a day for 1 days BIN:[id number] PCN: [id number] GROUP:[id number] ID:[id number] February, Active cephalexin 500 mg oral capsule [...] Start: 07-10-2021 take 1 tablet by denys every other day ferrous sulfate 325 (65 [...] Start: 03-15-2024 take 2 tablets by mo ut in the morning magnesium oxide (Mag-Ox) 400 (240 Mg) MG tablet TAKE 2 TABLETS BY MOUTH IN THE MORNING AND 2 TABLETS AT BEDTIME 06/22/2024 Active methenamine hippurate 1000 mg oral tablet (10 sources) take 1 tablet by mouth twice [...] acid 180 mg delayed release oral tablet (16 sources) Antimetabolite Immunosuppressant take 4 tablets by mouth in the morning mycophenolate (Myfortic) 180 MG EC tablet Take 4 tablets by mouth in the morning and 4 tablets before bedtime. Active microencapsulated potassium chloride 20 meq extended release oral tablet (16 sources) take 1 tablet by mouth once [...] 12:00am pravastatin sodium 40 mg oral tablet (20 sources) HMG-CoA Reductase Inhibitor Start: 03-15-2024 take [...] (Ozempic, 1 MG/DOSE,) 4 MG/3ML solution pen-injector (14 sources) Start: 11-01-2024 inject 1 mg by subcutaneous injection every week semaglutide (Ozempic, 1 MG/DOSE,) 4 MG/3ML solution pen-injector Indications: Type 2 diabetes mellitus with other specified complication, without long-term current use of insulin (CMS/HCC) INJECT 1 MG UNDER THE SKIN 1 (ONE) TIME PER WEEK 9 mL 3 11/01/2024 Active Start: 06-29-2024 inject 1 mg by subcu taneous injection every week semaglutide (Ozempic, 1 MG/DOSE,) [...] 2024 11:00pm tiZANidine 4 mg oral tablet (11 sources) Central alpha-2 Adrenergic Agonist Start: 08-31-2024 [...] mg Start: 08-02-2019 take 2 tablets by [facility] once daily as needed for pain Acetaminophen (Tylenol Extra Strength) 500 mg Tablet Active 1000 MG PO Daily as needed for Muscle Pain August 01, 2019 11:00pm calcitriol 0.53448 mg oral capsule (9 sources) Vitamin D3 [...] Ergocalciferol (Vitamin D2) 50,000 unit capsule Discontinued 75248 UNIT PO every month January 19, 2019 [...] Translations: [Chronic renal failure, stage 4 (severe) ([facility])] Chronic Acute and unspecified renal failure (9 [...] Resolved: 2 Chronic Diabetes mellitus with complications (18 sources) Chronic kidney disease due to type 2 diabetes mellitus; Translations: [Type 2 diabetes mellitus with diabetic chronic kidney disease] Onset: 3 03-04-2023 Chronic Disorders of lipid metabolism (18 sources) Dyslipidemia; Translations: [Hyperlipidemia, unspecified] Onset: 3 06-10-2023 Chronic Esophageal disorders (16 sources) Gastroesophageal reflux disease; Translations: [Gastro-esophageal reflux [...] unspecified] 08-04-2019 Episodic Other non-traumatic joint disorders (16 sources) Polyarthropathy; Translations: [Polyarthritis, unspecified] Onset: 3 [...] ovary] Onset: 2 Episodic Residual codes; unclassified (16 sources) Obstructive sleep apnea syndrome; Translations: [Obstructive [...] [Pelvic and perineal pain] Onset: 07-07-2024 Episodic Deficiency and other anemia (20 sources) Iron deficiency anemia; Translations: [Iron deficiency anemia, unspecified] Onset: 03-04-2023 03-15-2024 Episodic Diabetes mellitus without complication (18 sources) Impaired fasting glycemia; Translations: [Impaired fasting glucose] Onset: 03-04-2023 Resolved: 03-13-2023 03-13-2023 Episodic Fluid and electrolyte disorders (3 sources) Acidosis; Translations: [ACIDOSIS] Onset: 12-06-2021 Resolved: 05-02-2022 Episodic Genitourinary symptoms and ill-defined conditions (13 sources) Dysuria; Translations: [Dysuria] Onset: 03-15-2024 01-19-2019 Episodic Other aftercare (18 sources) Transplant follow-up; Translations: [Other [place] [facility] (current[facility] drug therapy] Onset: 10-23-2022 06-10-2023 Episodic Other connective tissue disease (18 sources) Fibromyalgia; Translations: [Fibromyalgia] Onset: 03-04-2023 03-04-2023 [...] cystitis; Translations: [Urinary tract infectious disease] Onset: 05-19-2024 05-15-2020 Episodic Results Test Name Value Interpretation Reference Range Facility Orders Onlyon 10-21-2024 Orders Only [id number] Antonio Puri i 1975 F Date Provider Department Center 10/21/2024 1971-[facility] None Family History Problem Relation Age of Onset Fibromyalgia Mother Heart disease Father Hypertension Sister Polycystic kidney disease Sister Hypertension Brother Polycystic kidney disease Brother Family Status - Relation Status Age at Mother Father Sister Brother Normal [facility] ALL URINALYSISon 10-14-2024 BILIRUBIN URINE Negative NEGATIVE [facility] BLOOD URINE TRACE-I NEGATIVE [facility] Clarity (U) CLEAR CLEAR [facility] Healthcare Color (U) LT. YELLOW YELLOW [facility] GLUCOSE URINE UA Negative NEGATIVE mg/dL [facility] Interpretation and review of laboratory results Abnormal [facility] Ketones Ql (U) Negative NEGATIVE mg/dL [facility] Leukocyte esterase Test strip Ql (U) LARGE Abnormal NEGATIVE [facility] NITRITE URINE Positive Abnormal NEGATIVE [facility] pH (U) 7.5 [pH] 5.0 - 9.0 [facility] PROTEIN URINE Negative NEG/TRACE mg/dL [facility] SPECIFIC GRAVITY URINE 1.015 1.005 - 1.025 [facility] UROBILINOGEN URINE 0.2 EU/dL 0.2 - 1.0 EU/dL [facility] Urine Cultureon 10-14-2024 Bacteria identified Cx Nom (U) ORGANISM: Escherichia coli (MDRO) (O:ESCCOLMDRO) Dupo Count >100,000 Aerobic CODI Charge (NMIC56) - [...] RESISTANT TO ALL B-LACTAM DRUGS. PERFORMED BY: [place] [address] PATHOLOGIST WARDROBE SPECIALIST DOM MARIEE M.D. Normal [facility] Comment on above: Performed By: #### C UU #### [address] ALL MAGNESIUMon 10-02-2024 Magnesium [Mass/Vol] 1.8 mg/dL 1.8 - 2 .4 mg/dL [facility] ALL PHOSPHOROUSon 10-02-2024 Phosphate [Mass/Vol] 3.9 mg/dL 2.6 - 4 .7 mg/dL [facility] ALL URIC ACIDon 10-02-2024 Urate [Mass/Vol] 4.2 mg/dL 2.6 - 6.0 mg/dL [facility]CF CMP (CMP) (FOR REMOTE C USE)on 10-02-2024 Albumin [Mass/Vol] 3.3 g/dL Low 3.4 - 5.0 g/dL [facility] ALBUMIN GLOBULIN RATIO 0.8 NO [facility] ALP [Catalytic activity/Vol] 84 U/L 46 - 116 U/L [facility] ALT [Catalytic activity/Vol] 13 U/L Low 14 - 59 U/L [facility] Anion gap [Moles/Vol] 14.6 mmol/L NO [facility] AST [Catalytic activity/Vol] 11 U/L Low 15 - 37 U/L [facility] Bilirubin [Mass/Vol] 0.3 mg/dL 0.2 - 1 .0 mg/dL [facility] Calcium [Mass/Vol] 9.3 mg/dL 8.5 - 10. 1 mg/dL [facility] Chloride [Moles/Vol] 105 mmol/L 98 - 10 7 mmol/L [facility] CO2 [Moles/Vol] 25 mmol/L 21.0 - 32.0 mmol/L [facility] Creatinine [Mass/Vol] 1.37 mg/dL High 0.55 - 1.02 mg/dL [facility] GFR/1.73 sq M.predicted CKD-EPI (S/P/Bld) [Vol rate/Area] 50 Low >=60 mL/min/1.73m 2 [facility] Globulin (S) [Mass/Vol] 4.2 g/dL N [facility] Glucose [Mass/Vol] 102 mg/dL 74 - 106 mg/dL [facility] Interpretation and review of laboratory results Abnormal [facility] Potassium [Moles/Vol] 3.6 mmol/L 3.5 - 5.1 mmol/L [facility] Protein [Mass/Vol] 7.5 g/dL 6.4 - 8.2 g/dL [facility] Sodium [Moles/Vol] 141 mmol/L 136 - 145 mmol/L [facility] TBH EGFR-NON AF J[place]ICAN 41 Low >=60 mL/min/1.73m 2 [facility] Urea nitrogen [Mass/Vol] 17 mg/dL 7.0 - 18.0 mg/dL [facility] Urea nitrogen/Creatinine [Mass ratio] 12.4 mg/mg [facility] METRO BILIRUBIN, DIRECTon Bilirubin.indirect [Mass/Vol] 0.1 mg/dL 0.0 - 0.2 mg/dL [facility] No Panel Informationon 10-02 [facility] ALL CBC WITH AUTO DIFFon BASOPHILS ABSOLUTE AUTO 0 N [facility] Basophils/100 WBC (Bld) 0.3 % 0.2 - 2.0 % [facility] Eosinophils/100 WBC (Bld) 2.8 % 0.9 - 7.0 % [facility] Erythrocyte distribution width (RBC) [Ratio] 14.5 % 11.0 - 15.0 % [facility] Hematocrit (Bld) [Volume fraction] 34.4 % Low 36.0 - 48.0 % [facility] Hemoglobin (Bld) [Mass/Vol] 10.9 g/dL Low 12.0 - 16.0 g/dL [facility] IMMATURE GRANULOCYTES ABS AUTO 0.03 [facility] Immature granulocytes/100 WBC (Bld) 0.4 % 0.0 - 0.5 % [facility] Interpretation and review of laboratory results Abnormal [facility] LYMPHOCYTES ABSOLUTE AUTO 1.2 [facility] Lymphocytes/100 WBC (Bld) 15.4 % Low 20.5 - 60.0 % [facility] MCH (RBC) [Entitic mass] 27.5 pg 26.7 - 34.0 pg [facility] MCHC (RBC) [Mass/Vol] 31.7 g/dL 29.9 - 35.2 g/dL [facility] MCV (RBC) [Entitic vol] 86.9 fL 81.0 - 99.0 fL [facility] MONOCYTES ABSOLUTE AUTO 0.5 N [facility] Monocytes/100 WBC (Bld) 6.2 % 1.7 - 12.0 % [facility] NEUTROPHILS ABSOLUTE AUTO 5.7 [facility] Neutrophils/100 WBC (Bld) 74.9 % 43.0 - 75.0 % [facility] Platelet mean volume (Bld) [Entitic vol] 8.5 fL Low 9.5 - 13.5 fL [facility] TBH EO # 0.2 [facility] TBH PLT 337 [facility] RBC 3.96 Low [facility] TBH WBC 7.6 [facility] ALL LIPID PROFILE (FASTING)o n 08-31-2024 CHOL HDL RATIO 3.6 [facility] Comment on above: 3.3 - 4.4 LOW RISK 4.4 - 7.1 AVERAGE RISK 7.1 - 11.0 MODERATE RISK >11.0 HIGH RISK Cholesterol [Mass/Vol] 175 mg/dL NINF - 200 mg/dL [facility] Cholesterol in HDL [Mass/Vol] 49 mg/dL 40 - 60 mg/dL [facility] Comment on above: > or =60 mg/dl - LOW CARDIOVASCULAR RISK <40 mg/dl - HIGH CARDIOVASCULAR RISK Magnesium [Mass/Vol] 99.6 mg/dL [facility] Comment on above: <100 mg/dl OPTIMAL 100-129 mg/dl NEAR OR ABOVE OPTIMAL 130-159 mg/dl BORDERLINE HIGH 160-189 mg/dl HIGH >190 mg/dl VERY HIGH Magnesium [Mass/Vol] 26.4 mg/dL [facility] Triglyceride [Mass/Vol] 132 mg/dL NINF - 150 mg/dL [facility] ALL MAGNESIUMon 08-31-2024 Magnesium [Mass/Vol] 1.9 mg/dL 1.8 - 2 .4 mg/dL [facility] ALL PHOSPHOROUSon 08-31-2024 Phosphate [Mass/Vol] 3.7 mg/dL 2.6 - 4 .7 mg/dL [facility] ALL URIC ACIDon 08-31-2024 Urate [Mass/Vol] 4 mg/dL 2.6 - 6.0 mg/dL [facility]CF CMP (CMP) (FOR REMOTE FH C USE)on 08-31-2024 Albumin [Mass/Vol] 3.4 g/dL 3.4 - 5.0 g/dL [facility] ALBUMIN GLOBULIN RATIO 0.8 NO [facility] ALP [Catalytic activity/Vol] 86 U/L 46 - 116 U/L [facility] ALT [Catalytic activity/Vol] 19 U/L 14 - 59 U/L [facility] Anion gap [Moles/Vol] 17.2 mmol/L NO [facility] AST [Catalytic activity/Vol] 11 U/L Low 15 - 37 U/L [facility] Bilirubin [Mass/Vol] 0.4 mg/dL 0.2 - 1 .0 mg/dL [facility] Calcium [Mass/Vol] 9.3 mg/dL 8.5 - 10. 1 mg/dL [facility] Chloride [Moles/Vol] 104 mmol/L 98 - 10 7 mmol/L [facility] CO2 [Moles/Vol] 24.6 mmol/L 21.0 - 32.0 mmol/L [facility] Creatinine [Mass/Vol] 1.34 mg/dL High 0.55 - 1.02 mg/dL [facility] GFR/1.73 sq M.predicted CKD-EPI (S/P/Bld) [Vol rate/Area] 51 Low >=60 mL/min/1.73m 2 [facility] Globulin (S) [Mass/Vol] 4.2 g/dL N [facility] Glucose [Mass/Vol] 98 mg/dL 74 - 106 mg/dL [facility] Interpretation and review of laboratory results Abnormal [facility] Potassium [Moles/Vol] 3.8 mmol/L 3.5 - 5.1 mmol/L [facility] Protein [Mass/Vol] 7.6 g/dL 6.4 - 8.2 g/dL [facility] Sodium [Moles/Vol] 142 mmol/L 136 - 145 mmol/L [facility] TBH EGFR-NON AF [place] 42 Low >=60 mL/min/1.73m 2 [facility] Urea nitrogen [Mass/Vol] 16 mg/dL 7.0 - 18.0 mg/dL [facility] Urea nitrogen/Creatinine [Mass ratio] 11.9 mg/mg [facility] METRO BILIRUBIN, DIRECTon Bilirubin.indirect [Mass/Vol] 0.1 mg/dL 0.0 - 0.2 mg/dL [facility] MLR HEMOGLOBIN A1Con 024 Glucose [Mass/Vol] 103 mg/dL [facility] HbA1c (Bld) [Mass fraction] 5.2 % 4.5 - 6.2 % [facility] Comment on above: ADA RECOMMENDED LIMI T 4.0 - 6.0 ADA THERAPEUTIC TARGET < 7.0 ACTION SUGGESTED > 7.[facility] screening [facility]o BI w/CADo n 08-25-2024 MM screening mammo BI w/[place] [address] Mammography Report Signed Patient: Mandeep Puri MR#: [id number] : 1975 Acct:[id number] Age/Sex: 48 / F ADM Date: 08/25/24 Loc: [place] Room: Type: REG CLI Attending Dr: Blake Hinojosa DO Copies to: Ming Espinoza,DO Blake Hinojosa DO Ordering Provider: Blake Hinojosa DO Date [...] Messina Jr., D.OSon08/25/2024 3:24 PM Dictation Location: [facility] Transcribed By: [facility] 08/25/24 1524 Dictated By: Evan Messina Jr, DO 08/25/24 1523 Signed By: 08/25/24 1524 Normal [facility] Mammography reportOrdered By : Evan Messina on 08-25-2024 Diagnostic imaging study [facility] [place] [address] Mammography Report Signed Patient: Mandeep Puri MR#: [id number] : 1975 Acct:[id number] Age/Sex: 48 / F ADM Date: 4 Loc: [place] Room: Type: REG CLI Attending Dr: Blake Hinojosa DO Copies to: [...] Messina Jr., D.OSon08/25/2024 3:24 PM Dictation Location: [facility] Transcribed By: [facility] 08/25/24 1524 Dictated By: Evan Messina Jr, DO 08/25/24 1523 Signed By: 08/25/24 1524 [facility] [place] 125on 08-03-2024 CANCER ANTIGEN 125 12.9 0.0 - 38.1 [facility] Comment on above: [facility] El ectrochemiluminescence Immunoassay (ECLIA) Values obtained with different assay methods or kits cannot be used interchangeably. Results cannot be interpreted as absolute evidence of the presence or absence of malignant disease. Performed at: [address] [id number] Lodge Sales Associate: Gabriel Whitman PhD, Phone: [phone] [facility] 24 hour urine albumin/total protein ratio by electrophoresisOrdered By: Jesus Ayala on 08-02-2024 Albumin Elph (24H U) [Mass fraction] Albumin/Protein.total in 24 hour Urine by Electrophoresis . [facility] 24 hour urine gamma globulin /total protein ratio by electrophoresisOrdered By: Jesus Ayala on 08-02-2024 Gamma globulin Elph (24H U) [Mass fraction] Gamma globulin/Protein.total in 24 hour Urine by Electrophoresis . [facility] 24 hour urine protein monocl onal/total protein by electrophoresisOrdered By: Jesus Ayala on 08-02-2024 Protein.monoclonal Elph (24H U) [Mass fraction] Protein.monoclonal/Prote in.total in 24 hour Urine by Electrophoresis Not Observed [facility] Alanine aminotransferase [En zymatic activity/volume] in Serum or PlasmaOrdered By: Jesus Ayala on 08-02-2024 ALT [Catalytic activity/Vol] 11 U/L Normal [facility] Comment on above: Performed By: #### U PE RAND, CAMILLA,URINE, ALDOLASE, SPE, CAMILLA SERUM #### [facility] , #### ADDONUAPLUS, T4F, ESR, CMP, CK, CBC, CRP, TSH3 #### [address] ALT [Catalytic activity/Vol] Alanine aminotransferase [Enzymatic activity/volume] in Serum or Plasma [facility] Albumin [Mass/volume] in Ser um or Plasma by Bromocresol green (BCG) dye binding methoOrdered By: Jesus Ayala on 08-02-2024 Albumin BCG dye [Mass/Vol] 4.3 g/dL 3.5-5.7 [facility] Albumin BCG dye [Mass/Vol] Albumin [Mass/volume] in Serum or Plasma by Bromocresol green (BCG) dye binding metho 3.5-5.7 [facility] Aldolaseon 08-02-2024 Aldolase 3.5 U/L Normal 3.3-10.3 [facility] Comment on above: Result Comment: Perf ormed at: CB - [facility] [address] [id number] Lodge Sales Associate: Gabriel Whitman PhD, Phone: [phone] PERFORMED BY: [place] [address] PATHOLOGIST WARDROBE SPECIALIST ANAHY MCKEE M.D. Performed By: #### U PE RAND, CAMILLA,URINE, ALDOLASE, SPE, CAMILLA SERUM ####[facility] ,#### ADDONUAPLUS, T4F, ESR, CMP, CK, CBC, CRP, TSH3 ####[facility] [id number] [place] [address] [place] Alkaline phosphatase [Enzyma tic activity/volume] in Serum or PlasmaOrdered By: Jesus Ayala on 08-02-2024 ALP [Catalytic activity/Vol] 87 U/L Normal 34 [facility] Comment on above: Performed By: #### U PE RAND, CAMILLA,URINE, ALDOLASE, SPE, CAMILLA SERUM #### [facility] , #### ADDONUAPLUS, T4F, ESR, CMP, CK, CBC, CRP, TSH3 #### [facility] [address] [place] [address] [place] ALP [Catalytic activity/Vol] Alkaline phosphatase [Enzymatic activity/volume] in Serum or Plasma [address] [place] [address] Appearance of UrineOrdered B y: Jesus Ayala on 08-02-2024 Appearance (U) Urine appearance Clear [facility] Aspartate aminotransferase [ Enzymatic activity/volume] in Serum or PlasmaOrdered By: Jesus Ayala on 08-02-2024 AST [Catalytic activity/Vol] 13 U/L Normal [facility] Comment on above: Performed By: #### U PE RAND, CAMILLA,URINE, ALDOLASE, SPE, CAMILLA SERUM #### [facility] , #### ADDONUAPLUS, T4F, ESR, CMP, CK, CBC, CRP, TSH3 #### [facility] [address] [place] [address] [place] AST [Catalytic activity/Vol] Aspartate aminotransferase [Enzymatic activity/volume] in Serum or Plasma [facility] Automated basophil %Ordered By: Jesus Ayala on 08-02-2024 Basophils/100 WBC (Bld) 0.6 % Normal . [facility] Comment on above: Performed By: #### U PE RAND, CAMILLA,URINE, ALDOLASE, SPE, CAMILLA SERUM ####[facility] ,#### ADDONUAPLUS, T4F, ESR, CMP, CK, CBC, CRP, TSH3 ####[place] [id number] [address] Automated basophil countOrde red By: Jesus Ayala on 08-02-2024 Basophils (Bld) [#/Vol] 0.0 10*3/uL Normal 0.0-0.2 [facility] Comment on above: Performed By: #### U PE RAND, CAMILLA,URINE, ALDOLASE, SPE, CAMILLA SERUM ####[facility] ,#### ADDONUAPLUS, T4F, ESR, CMP, CK, CBC, CRP, TSH3 ####[address] Automated blood monocyte cou ntOrdered By: Jesus Gruberrow on 08-02-2024 Monocytes (Bld) [#/Vol] 0.4 10*3/uL Normal 0.0-0.8 [facility] Comment on above: Performed By: #### U PE RAND, CAMILLA,URINE, ALDOLASE, SPE, CAMILLA SERUM ####[facility] ,#### ADDONUAPLUS, T4F, ESR, CMP, CK, CBC, CRP, TSH3 ####[address] Automated eosinophil %Ordere d By: Jesus Gruberrow on 08-02-2024 Eosinophils/100 WBC (Bld) 3.0 % Normal . [facility] Comment on above: Performed By: #### U PE RAND, CAMILLA,URINE, ALDOLASE, SPE, CAMILLA SERUM ####[facility] ,#### ADDONUAPLUS, T4F, ESR, CMP, CK, CBC, CRP, TSH3 ####[address] Automated eosinophil countOr dered By: Jesus Gruberrow on 08-02-2024 Eosinophils (Bld) [#/Vol] 0.2 10*3/uL Normal 0.0-0.45 [facility] Comment on above: Performed By: #### U PE RAND, CAMILLA,URINE, ALDOLASE, SPE, CAMILLA SERUM ####[facility] ,#### ADDONUAPLUS, T4F, ESR, CMP, CK, CBC, CRP, TSH3 ####[facility] [id number] Automated epithelial cells c ount in urine sediment (number/area)Ordered By: Jesus Gruberrow on 08-02-2024 Epithelial cells Auto (Urine sed) [#/Area] 5-9 [HPF] High 0-2 [facility] Epithelial cells Auto (Urine sed) [#/Area] Automated epithelial cells count in urine sediment (number/area) High 0-2 [facility] Automated erythrocytes count in urine sediment (number/area)Ordered By: Jesus Gruberrow on 08-02-2024 RBC Auto (Urine sed) [#/Area] Erythrocytes [#/area] in Urine sediment by Automated count 0-4 [facility] Automated leukocytes count i n urine sediment (number/area)Ordered By: Jesus Gruberrow on 08-02-2024 WBC Auto (Urine sed) [#/Area] Leukocytes [#/area] in Urine sediment by Automated count 0-4 [facility] Automated monocyte %Ordered By: Jesus Gruberrow on 08-02-2024 Monocytes/100 WBC (Bld) 4.5 % Normal . [facility] Comment on above: Performed By: #### U PE RAND, CAMILLA,URINE, ALDOLASE, SPE, CAMILLA SERUM ####[facility] ,#### ADDONUAPLUS, T4F, ESR, CMP, CK, CBC, CRP, TSH3 ####[address] Automated neutrophil %Ordere d By: Jesus Gruberrow on 08-02-2024 Neutrophils/100 WBC (Bld) 76.9 % Normal . [facility] Comment on above: Performed By: #### U PE RAND, CAMILLA,URINE, ALDOLASE, SPE, CAMILLA SERUM ####[facility] ,#### ADDONUAPLUS, T4F, ESR, CMP, CK, CBC, CRP, TSH3 ####[facility] [id number] Bacteria [Presence] in Urine by AutomatedOrdered By: Jesus Ayala on 08-02-2024 Bacteria Auto Ql (U) None seen [HPF] None Seen [facility] Basophils Auto (Bld) [#/Vol] Ordered By: Jesus Ayala on 08-02-2024 Basophils (Bld) [#/Vol] Automated basophil count 0.0-0.2 [facility] Basophils/100 WBC Auto (Bld) Ordered By: Jesus Ayala on 08-02-2024 Basophils/100 WBC (Bld) Automated basophil % . [facility] Bilirubin Test strip Ql (U)O rdered By: Jesus Ayala on 08-02-2024 Bilirubin Ql (U) Negative Negative [facility] Bilirubin Ql (U) Bilirubin.total [Presence] in Urine by Test strip Negative [facility] Bilirubin.total [Mass/volume ] in Serum or PlasmaOrdered By: Jesus Ayala on 08-02-2024 Bilirubin [Mass/Vol] 0.3 mg/dL Normal 0.3-1.0 [facility] Comment on above: Performed By: #### U PE RAND, CAMILLA,URINE, ALDOLASE, SPE, CAMILLA SERUM #### [facility] , #### ADDONUAPLUS, T4F, ESR, CMP, CK, CBC, CRP, TSH3 #### [facility] [address] Bilirubin [Mass/Vol] Bilirubin.total [Mass/volume] in Serum or Plasma 0.3-1.0 [facility] C reactive protein [Mass/vol ume] in Serum or PlasmaOrdered By: Jesus Ayala on 08-02-2024 CRP [Mass/Vol] 1.7 mg/dL High 0.0-0.5 [facility] CRP [Mass/Vol] C reactive protein [Mass/volume] in Serum or Plasma High 0.0-0.5 [facility] C-Reactive Proteinon 024 C-Reactive Protein 1.7 mg/dL High 0.0-0.5 [facility] Comment on above: Performed By: #### U PE RAND, CAMILLA,URINE, ALDOLASE, SPE, CAMILLA SERUM #### [facility] , #### ADDONUAPLUS, T4F, ESR, CMP, CK, CBC, CRP, TSH3 #### [facility] [address] [place] [address] CARCINOEMBRYONIC ANTIGENon 1 [facility] CEA ser/plasOrdered By: Gustavo Hinojosa on 08-02-2024 Carcinoembryonic Ag [Mass/Vol] Serum or plasma carcinoembryonic antigen measurement (mass/volume) 0.0-3.0 [facility] Comment on above: Serial tumor marker results determined by assays using different manufacturers or methods may not be comparable.[facility] cradle placer and method:[employer] DXI, 2 SITE IMMUNOENZYMATIC [place] ASSAY. Calcium [Mass/volume] in Ser um or PlasmaOrdered By: Jesus Ayala on 08-02-2024 Calcium [Mass/Vol] 9.8 mg/dL Normal 8.6-10.3 [facility] Comment on above: Performed By: #### U PE RAND, CAMILLA,URINE, ALDOLASE, SPE, CAMILLA SERUM #### [facility] , #### ADDONUAPLUS, T4F, ESR, CMP, CK, CBC, CRP, TSH3 #### [facility] [address] [place] [address] Calcium [Mass/Vol] Calcium [Mass/volume ] in Serum or Plasma 8.6-10.3 [facility] Cancer Antigen 125on 024 Cancer Antigen 125 12.9 Normal 0.0-38.1 [facility] Comment on above: Result Comment: [employer] Electrochemiluminescence Immunoassay (ECLIA) Values obtained with different assay methods or kits cannot be used interchangeably. Results cannot be interpreted as absolute evidence of the presence or absence of malignant disease. Performed at: [facility] [address] [id number] Lodge Sales Associate: Gabriel Whitman PhD, Phone: [phone] PERFORMED BY: [place] [address] PATHOLOGIST WARDROBE SPECIALIST ANAHY MCKEE M.D. Performed By: #### C A125 ####[facility] ,#### CEA ####[facility] [id number] Carbon dioxide, total [Moles /volume] in Serum or PlasmaOrdered By: Jesus Ayala on 08-02-2024 CO2 [Moles/Vol] 24.6 mmol/L Normal 21.0-31.0 [facility] Comment on above: Performed By: #### U PE RAND, CAMILLA,URINE, ALDOLASE, SPE, CAMILLA SERUM #### [facility] , #### ADDONUAPLUS, T4F, ESR, CMP, CK, CBC, CRP, TSH3 #### [facility] [address] [place] [address] [place] CO2 [Moles/Vol] Carbon dioxide, tota l [Moles/volume] in Serum or Plasma 21.0-31.0 [facility] Chloride [Moles/volume] in S aislinn or PlasmaOrdered By: Jesus Ayala on 08-02-2024 Chloride [Moles/Vol] 105 mmol/L Normal [address] [place] [address] Comment on above: Performed By: #### U PE RAND, CAMILLA,URINE, ALDOLASE, SPE, CAMILLA SERUM #### [facility] , #### ADDONUAPLUS, T4F, ESR, CMP, CK, CBC, CRP, TSH3 #### [facility] [address] [place] [address] [place] Chloride [Moles/Vol] Chloride [Moles/vol ume] in Serum or Plasma 98-107 [facility] Color Auto (U)Ordered By: Chan Ayala on 08-02-2024 Color (U) Color of Urine by Auto Yellow [facility] Color of Urine by AutoOrdere d By: Jesus Ayala on 08-02-2024 Color (U) Light-yellow Normal Yellow [facility] Comment on above: Order Comment: Name Collection Type:: Clean-Voided Midstream Performed By: #### U PE RAND, CAMILLA,URINE, ALDOLASE, SPE, CAMILLA SERUM #### [facility] , #### ADDONUAPLUS, T4F, ESR, CMP, CK, CBC, CRP, TSH3 #### [facility] [address] Complete Blood Count Auto Di ffon 08-02-2024 Mean Corpuscular HGB Conc 33.5 g/dL Normal 32.0-35.0 [facility] Comment on above: Performed By: #### U PE RAND, CAMILLA,URINE, ALDOLASE, SPE, CAMILLA SERUM ####[facility] ,#### ADDONUAPLUS, T4F, ESR, CMP, CK, CBC, CRP, TSH3 ####[address] NRBC% 0.1 /100{WBC} Normal 0-0.5 [facility] Comment on above: Performed By: #### U PE RAND, CAMILLA,URINE, ALDOLASE, SPE, CAMILLA SERUM ####[facility] ,#### ADDONUAPLUS, T4F, ESR, CMP, CK, CBC, CRP, TSH3 ####[address] Comprehensive Metabolic Pane jonathan 08-02-2024 Albumin [Mass/Vol] 4.3 g/dL Normal 3.5-5.7 [facility] Comment on above: Performed By: #### U PE RAND, CAMILLA,URINE, ALDOLASE, SPE, CAMILLA SERUM #### [facility] , #### ADDONUAPLUS, T4F, ESR, CMP, CK, CBC, CRP, TSH3 #### [address] GFR/1.73 sq M.predicted MDRD (S/P/Bld) [Vol rate/Area] mL/min/{1.73_m2} Normal [facility] Comment on above: Performed By: #### U PE RAND, CAMILLA,URINE, ALDOLASE, SPE, CAMILLA SERUM #### [facility] , #### ADDONUAPLUS, T4F, ESR, CMP, CK, CBC, CRP, TSH3 #### [facility] [address] [place] [address] [place] Creatine kinase [Enzymatic a ctivity/volume] in Serum or PlasmaOrdered By: Jesus Ayala on 08-02-2024 CK [Catalytic activity/Vol] 39 U/L Normal [facility] Comment on above: Result Comment: PERF ORMED BY: [place] [address] PATHOLOGIST WARDROBE SPECIALIST ANAHY MCKEE M.D. Performed By: #### U PE RAND, CAMILLA,URINE, ALDOLASE, SPE, CAMILLA SERUM #### [facility] , #### ADDONUAPLUS, T4F, ESR, CMP, CK, CBC, CRP, TSH3 #### [facility] [address] [place] [address] [place] CK [Catalytic activity/Vol] Creatine kinase [Enzymatic activity/volume] in Serum or Plasma [facility] Creatinine [Mass/volume] in Serum or PlasmaOrdered By: Jesus Ayala on 08-02-2024 Creatinine [Mass/Vol] 1.10 mg/dL Normal 0.60-1.20 [facility] Comment on above: Performed By: #### U PE RAND, CAMILLA,URINE, ALDOLASE, SPE, CAMILLA SERUM #### [facility] , #### ADDONUAPLUS, T4F, ESR, CMP, CK, CBC, CRP, TSH3 #### [facility] [address] [place] [address] [place] Creatinine [Mass/Vol] Creatinine [Mass/v olume] in Serum or Plasma 0.60-1.20 [facility] Dipstick and Microscopicon 1 Bacteria,Urine None Seen Normal None Seen [facility] Comment on above: Order Comment: Name Collection Type:: Clean-Voided Midstream Performed By: #### U PE RAND, CAMILLA,URINE, ALDOLASE, SPE, CAMILLA SERUM #### [facility] , #### ADDONUAPLUS, T4F, ESR, CMP, CK, CBC, CRP, TSH3 #### [address] Bilirubin,Urine Negative Normal Negative [facility] Comment on above: Order Comment: Name Collection Type:: Clean-Voided Midstream Performed By: #### U PE RAND, CAMILLA,URINE, ALDOLASE, SPE, CAMILLA SERUM #### [facility] , #### ADDONUAPLUS, T4F, ESR, CMP, CK, CBC, CRP, TSH3 #### [address] Glucose Ql (U) 50 mg/dL High Normal [facility] Comment on above: Order Comment: Name Collection Type:: Clean-Voided Midstream Performed By: #### U PE RAND, CAMILLA,URINE, ALDOLASE, SPE, CAMILLA SERUM #### [facility] , #### ADDONUAPLUS, T4F, ESR, CMP, CK, CBC, CRP, TSH3 #### [address] Hyaline Casts,Urine 0-8 Normal 0-8 [facility] Comment on above: Order Comment: Name Collection Type:: Clean-Voided Midstream Result Comment: PERF ORMED BY: [place] [address] PATHOLOGIST WARDROBE SPECIALIST ANAHY MCKEE M.D. Performed By: #### U PE RAND, CAMILLA,URINE, ALDOLASE, SPE, CAMILLA SERUM #### [facility] , #### ADDONUAPLUS, T4F, ESR, CMP, CK, CBC, CRP, TSH3 #### [address] Nitrite,Urine Negative Normal Negative [facility] Comment on above: Order Comment: Name Collection Type:: Clean-Voided Midstream Performed By: #### U PE RAND, CAMILLA,URINE, ALDOLASE, SPE, CAMILLA SERUM #### [facility] , #### ADDONUAPLUS, T4F, ESR, CMP, CK, CBC, CRP, TSH3 #### [address] Occult Blood,Urine Negative Normal Negative [facility] Comment on above: Order Comment: Name Collection Type:: Clean-Voided Midstream Performed By: #### U PE RAND, CAMILLA,URINE, ALDOLASE, SPE, CAMILLA SERUM #### [facility] , #### ADDONUAPLUS, T4F, ESR, CMP, CK, CBC, CRP, TSH3 #### [address] Protein,Urine Negative Normal Negative [facility] Comment on above: Order Comment: Name Collection Type:: Clean-Voided Midstream Performed By: #### U PE RAND, CAMILLA,URINE, ALDOLASE, SPE, CAMILLA SERUM #### [facility] , #### ADDONUAPLUS, T4F, ESR, CMP, CK, CBC, CRP, TSH3 #### [address] RBC,Urine 3-4 Normal 0-4 [facility] Comment on above: Order Comment: Name Collection Type:: Clean-Voided Midstream Performed By: #### U PE RAND, CAMILLA,URINE, ALDOLASE, SPE, CAMILLA SERUM #### [facility] , #### ADDONUAPLUS, T4F, ESR, CMP, CK, CBC, CRP, TSH3 #### [address] Specificy [place],Urine 1.013 Normal 1.001-1.030 [facility] Comment on above: Order Comment: Name Collection Type:: Clean-Voided Midstream Performed By: #### U PE RAND, CAMILLA,URINE, ALDOLASE, SPE, CAMILLA SERUM #### [facility] , #### ADDONUAPLUS, T4F, ESR, CMP, CK, CBC, CRP, TSH3 #### [facility] [address] [place] [address] Squamous Epithelial Cell,Urine 5-9 High 0-2 [facility] Comment on above: Order Comment: Name Collection Type:: Clean-Voided Midstream Performed By: #### U PE RAND, CAMILLA,URINE, ALDOLASE, SPE, CAMILLA SERUM #### [facility] , #### ADDONUAPLUS, T4F, ESR, CMP, CK, CBC, CRP, TSH3 #### [address] Urobilinogen,Urine Normal Normal Normal [facility] Comment on above: Order Comment: Name Collection Type:: Clean-Voided Midstream Performed By: #### U PE RAND, CAMILLA,URINE, ALDOLASE, SPE, CAMILLA SERUM #### [facility] , #### ADDONUAPLUS, T4F, ESR, CMP, CK, CBC, CRP, TSH3 #### [address] WBC,Urine 3-4 Normal 0-4 [facility] Comment on above: Order Comment: Name Collection Type:: Clean-Voided Midstream Performed By: #### U PE RAND, CAMILLA,URINE, ALDOLASE, SPE, CAMILLA SERUM #### [facility] , #### ADDONUAPLUS, T4F, ESR, CMP, CK, CBC, CRP, TSH3 #### [address] Eosinophils Auto (Bld) [#/Vo l]Ordered By: Jesus Ayala on 08-02-2024 Eosinophils (Bld) [#/Vol] Automated eosinophil count 0.0-0.45 [facility] Eosinophils/100 WBC Auto (Bl d)Ordered By: Jesus Ayala on 08-02-2024 Eosinophils/100 WBC (Bld) Automated eosinophil % . [facility] Erythrocyte Sedimentation Ra mathieu 08-02-2024 ESR (Bld) [Velocity] 73 mm/h High 0-19 [facility] Comment on above: Result Comment: PERF ORMED BY: [facility] [address] [place] [address] PATHOLOGIST WARDROBE SPECIALIST ANAHY MCKEE M.D. Performed By: #### U PE RAND, CAMILLA,URINE, ALDOLASE, SPE, CAMILLA SERUM ####[facility] ,#### ADDONUAPLUS, T4F, ESR, CMP, CK, CBC, CRP, TSH3 ####[place] [address] [address] Erythrocyte distribution wid th Auto (RBC) [Ratio]Ordered By: Jesus Ayala on 08-02-2024 Erythrocyte distribution width (RBC) [Ratio] Erythrocyte distribution width [Ratio] by Automated count High 11.9-15.3 [facility] Erythrocyte distribution wid th [Ratio] by Automated countOrdered By: Jesus Ayala on 08-02-2024 Erythrocyte distribution width (RBC) [Ratio] 15.7 % High 11.9-15.3 [facility] Comment on above: Performed By: #### U PE RAND, CAMILLA,URINE, ALDOLASE, SPE, CAMILLA SERUM ####[facility] ,#### ADDONUAPLUS, T4F, ESR, CMP, CK, CBC, CRP, TSH3 ####[address] Erythrocyte sedimentation ra te by Photometric methodOrdered By: Jesus Ayala on 08-02-2024 ESR Photometric method (Bld) [Velocity] 73 mm/hr High 0-19 [facility] ESR Photometric method (Bld) [Velocity] Erythrocyte sedimentation rate by Photometric method High 0-19 [facility] Erythrocytes [#/area] in Uri ne sediment by Automated countOrdered By: Jesus Ayala on 08-02-2024 RBC Auto (Urine sed) [#/Area] 3-4 [HPF] 0-4 [facility] Erythrocytes [#/volume] in B lood by Automated countOrdered By: Jesus Gruberrow on 08-02-2024 RBC (Bld) [#/Vol] 4.37 10*6/uL Normal 3.60-5.00 [facility] Comment on above: Performed By: #### U PE RAND, CAMILLA,URINE, ALDOLASE, SPE, CAMILLA SERUM ####[facility] ,#### ADDONUAPLUS, T4F, ESR, CMP, CK, CBC, CRP, TSH3 ####[facility] [id number] [address] Globulin Calc (S) [Mass/Vol] Ordered By: Jesus Ayala on 08-02-2024 Globulin (S) [Mass/Vol] Serum globulin measurement by calculation (mass/volume) [facility] Glucose [Mass/volume] in Ser um or PlasmaOrdered By: Jesus Ayala on 08-02-2024 Glucose [Mass/Vol] 146 mg/dL High 70-100 [facility] Comment on above: ADA recommended refe rence rangeRandom Glucose Reference Range is dependent on time and content of last meal. Glucose of more than 200 mg/dL in a nonstressed, ambulatory subject supports the diagnosis of Diabetes Mellitus. Result Comment: [place] om Glucose Reference Range is dependent on time and content of last meal. Glucose of more than 200 mg/dL in a nonstressed, ambulatory subject supports the diagnosis of Diabetes Mellitus. ADA recommended reference range Performed By: #### U PE RAND, CAMILLA,URINE, ALDOLASE, SPE, CAMILLA SERUM #### [facility] , #### ADDONUAPLUS, T4F, ESR, CMP, CK, CBC, CRP, TSH3 #### [facility] [address] Glucose [Mass/Vol] Glucose [Mass/volume ] in Serum or Plasma High 70-100 [facility] Comment on above: ADA recommended refe rence rangeRandom Glucose Reference Range is dependent on time and content of last meal. Glucose of more than 200 mg/dL in a nonstressed, ambulatory subject supports the diagnosis of Diabetes Mellitus. Glucose [Mass/volume] in Uri ne by Test stripOrdered By: Jesus Gruberrow on 08-02-2024 Glucose Test strip (U) [Mass/Vol] 50 mg/dL High Normal [facility] Glucose Test strip (U) [Mass/Vol] Glucose [Mass/volume] in Urine by Test strip High Normal [facility] Hematocrit Auto (Bld) [Volum e fraction]Ordered By: Jessu Jamie on 08-02-2024 Hematocrit (Bld) [Volume fraction] Hematocrit [Volume Fraction] of Blood by Automated count 34.0-46.4 [facility] Hematocrit [Volume Fraction] of Blood by Automated countOrdered By: Jesus Jamie on 08-02-2024 Hematocrit (Bld) [Volume fraction] 37.0 % Normal 34.0-46.4 [facility] Comment on above: Performed By: #### U PE RAND, CAMILLA,URINE, ALDOLASE, SPE, CAMILLA SERUM ####[facility] ,#### ADDONUAPLUS, T4F, ESR, CMP, CK, CBC, CRP, TSH3 ####[facility] Krg[address] Hemoglobin Test strip Ql (U) Ordered By: Jesus Jamie on 08-02-2024 Hemoglobin Ql (U) Negative Negative [facility] Hemoglobin Ql (U) Hemoglobin [Presence ] in Urine by Test strip Negative [facility] Hemoglobin [Mass/volume] in BloodOrdered By: Jesus Ayala on 08-02-2024 Hemoglobin (Bld) [Mass/Vol] 12.4 g/dL Normal 11.8-15.4 [facility] Comment on above: Performed By: #### U PE RAND, CAMILLA,URINE, ALDOLASE, SPE, CAMILLA SERUM ####[facility] ,#### ADDONUAPLUS, T4F, ESR, CMP, CK, CBC, CRP, TSH3 ####[facility] Zkt[address] Hemoglobin (Bld) [Mass/Vol] Hemoglobin [Mass/volume] in Blood 11.8-15.4 [facility] Immunofixation for UrineOrde red By: Jesus Ayala on 08-02-2024 Interpretation Immunofixation (U) [Interp] Immunofixation for Urine . [facility] Comment on above: No monoclonality det ected.Performed at: - [address] [id number] Director: Gabriel Whitman PhD, Phone: [phone] Immunofixation, (CAMILLA), Urine on 08-02-2024 Immunofixation, (CAMILLA), Urine Comment Normal . [facility] Comment on above: Result Comment: No m onoclonality detected. Performed at: - [address] [id number] Lodge Sales Associate: Gabriel Whitman PhD, Phone: [phone] Performed By: #### U PE RAND, CAMILLA,URINE, ALDOLASE, SPE, CAMILLA SERUM ####[facility] ,#### ADDONUAPLUS, T4F, ESR, CMP, CK, CBC, CRP, TSH3 ####[facility] [id number] [place] [id number] [facility] Immunofixation,Serumon 08-02 Immunofixation, Serum Comment Normal . [facility] Comment on above: Result Comment: No m onoclonality detected. Performed By: #### U PE RAND, CAMILLA,URINE, ALDOLASE, SPE, CAMILLA SERUM ####[facility] ,#### ADDONUAPLUS, T4F, ESR, CMP, CK, CBC, CRP, TSH3 ####[facility] [address] [place] [address] [facility] Immunoglobulin A, Serum 136 mg/dL Normal 87-352 T he [facility] Comment on above: Performed By: #### U PE RAND, CAMILLA,URINE, ALDOLASE, SPE, CAMILLA SERUM ####[facility] ,#### ADDONUAPLUS, T4F, ESR, CMP, CK, CBC, CRP, TSH3 ####[facility] Hch[address] [place] [address] [place] Immunoglobulin G 1357 mg/dL Normal 586-1602 [facility] Comment on above: Performed By: #### U PE RAND, CAMILLA,URINE, ALDOLASE, SPE, CAMILLA SERUM ####[facility] ,#### ADDONUAPLUS, T4F, ESR, CMP, CK, CBC, CRP, TSH3 ####[facility] Immunoglobulin M, Serum 94 mg/dL Normal 26-217 [facility] Comment on above: Result Comment: Perf ormed at: CB - [facility] [address] [id number] [employer] Sales Associate: Gabriel Whitman PhD, Phone: [phone] Performed By: #### U PE RAND, CAMILLA,URINE, ALDOLASE, SPE, CAMILLA SERUM ####[facility] ,#### ADDONUAPLUS, T4F, ESR, CMP, CK, CBC, CRP, TSH3 ####[facility] Ketones Test strip Ql (U)Ord ered By: Jesus Ayala on 08-02-2024 Ketones Ql (U) Ketones [Presence] i n Urine by Test strip Negative [facility] Ketones [Presence] in Urine by Test stripOrdered By: Jesus Ayala on 08-02-2024 Ketones Ql (U) Negative Normal Negative [facility] Comment on above: Order Comment: Name Collection Type:: Clean-Voided Midstream Performed By: #### U PE RAND, CAMILLA,URINE, ALDOLASE, SPE, CAMILLA SERUM #### [facility] , #### ADDONUAPLUS, T4F, ESR, CMP, CK, CBC, CRP, TSH3 #### [facility] [address] Laboratory - UrinalysisOrder ed By: Jesus Ayala on 08-02-2024 Hyaline casts LM Ql (Urine sed) 0-8 [LPF] 0-8 [facility] Leukocyte esterase [Presence ] in Urine by Test stripOrdered By: Jesus Ayala on 08-02-2024 Leukocyte esterase Test strip Ql (U) Negative Normal Negative [facility] Comment on above: Order Comment: Name Collection Type:: Clean-Voided Midstream Performed By: #### U PE RAND, CAMILLA,URINE, ALDOLASE, SPE, CAMILLA SERUM #### [facility] , #### ADDONUAPLUS, T4F, ESR, CMP, CK, CBC, CRP, TSH3 #### [facility] [address] Leukocyte esterase Test strip Ql (U) Leukocyte esterase [Presence] in Urine by Test strip Negative [facility] Leukocytes [#/area] in Urine sediment by Automated countOrdered By: Jesus Gruberrow on 08-02-2024 WBC Auto (Urine sed) [#/Area] 3-4 [HPF] 0-4 [facility] Leukocytes [#/volume] correc noah for nucleated erythrocytes in Blood by Automated counOrdered By: Jesus Ayala on 08-02-2024 WBC corrected for nucl RBC Auto (Bld) [#/Vol] 7.8 10*3/uL 3.8-11.6 [facility] WBC corrected for nucl RBC Auto (Bld) [#/Vol] Leukocytes [#/volume] corrected for nucleated erythrocytes in Blood by Automated coun 3.8-11.6 [facility] Leukocytes [#/volume] in Blo od by Automated countOrdered By: Jesus Gruberrow on 08-02-2024 WBC (Bld) [#/Vol] 7.8 10*3/uL Normal 3.8-11.6 [facility] Comment on above: Performed By: #### U PE RAND, CAMILLA,URINE, ALDOLASE, SPE, CAMILLA SERUM ####[facility] ,#### ADDONUAPLUS, T4F, ESR, CMP, CK, CBC, CRP, TSH3 ####[facility] Scf[address] Lymphocytes Auto (Bld) [#/Vo l]Ordered By: Jesus Ayala on 08-02-2024 Lymphocytes (Bld) [#/Vol] Lymphocytes [#/volume] in Blood by Automated count 1.00-4.8 [facility] Lymphocytes [#/volume] in Bl ood by Automated countOrdered By: Jesushelio Ayala on 08-02-2024 Lymphocytes (Bld) [#/Vol] 1.2 10*3/uL Normal 1.00-4.8 [facility] Comment on above: Performed By: #### U PE RAND, CAMILLA,URINE, ALDOLASE, SPE, CAMILLA SERUM ####[facility] ,#### ADDONUAPLUS, T4F, ESR, CMP, CK, CBC, CRP, TSH3 ####[facility] Kih[address] Lymphocytes/100 WBC Auto (Bl d)Ordered By: Jesus Ayala on 08-02-2024 Lymphocytes/100 WBC (Bld) Lymphocytes/100 leukocytes in Blood by Automated count . [facility] Lymphocytes/100 leukocytes i n Blood by Automated countOrdered By: Jesus Ayala on 08-02-2024 Lymphocytes/100 WBC (Bld) 15.0 % Normal . [facility] Comment on above: Performed By: #### U PE RAND, CAMILLA,URINE, ALDOLASE, SPE, CAMILLA SERUM ####[facility] ,#### ADDONUAPLUS, T4F, ESR, CMP, CK, CBC, CRP, TSH3 ####[facility] MCH Auto (RBC) [Entitic mass ]Ordered By: Jesus Ayala on 08-02-2024 MCH (RBC) [Entitic mass] MCH [Entitic mass] by Automated count 24.7-34.3 [facility] MCH [Entitic mass] by Automa noah countOrdered By: Jesus Ayala on 08-02-2024 MCH (RBC) [Entitic mass] 28.3 pg Normal 24.7-34.3 [facility] Comment on above: Performed By: #### U PE RAND, CAMILLA,URINE, ALDOLASE, SPE, CAMILLA SERUM ####[facility] ,#### ADDONUAPLUS, T4F, ESR, CMP, CK, CBC, CRP, TSH3 ####[facility] MCHC Auto (RBC) [Mass/Vol]Or dered By: Jesus Ayala on 08-02-2024 MCHC (RBC) [Mass/Vol] 33.5 g/dL 32.0-35.0 [facility] MCHC (RBC) [Mass/Vol] MCHC [Mass/volume] by Automated count 32.0-35.0 [facility] MCV Auto (RBC) [Entitic vol] Ordered By: Jesus Ayala on 08-02-2024 MCV (RBC) [Entitic vol] MCV [Entitic vol ume] by Automated count 80-100 [facility] MCV [Entitic volume] by Auto mated countOrdered By: Jesus Ayala on 08-02-2024 MCV (RBC) [Entitic vol] 84.6 fL Normal 80-100 F [facility] Comment on above: Performed By: #### U PE RAND, CAMILLA,URINE, ALDOLASE, SPE, CAMILLA SERUM ####[facility] ,#### ADDONUAPLUS, T4F, ESR, CMP, CK, CBC, CRP, TSH3 ####[facility] Waq[address] Monocytes Auto (Bld) [#/Vol] Ordered By: Jesus Ayala on 08-02-2024 Monocytes (Bld) [#/Vol] Automated blood monocyte count 0.0-0.8 [facility] Monocytes/100 WBC Auto (Bld) Ordered By: Jesus Ayala on 08-02-2024 Monocytes/100 WBC (Bld) Automated monocyte % . [facility] Neutrophils Auto (Bld) [#/Vo l]Ordered By: Jesus Ayala on 08-02-2024 Neutrophils (Bld) [#/Vol] Neutrophils [#/volume] in Blood by Automated count 1.8-7.7 [facility] Neutrophils [#/volume] in Bl ood by Automated countOrdered By: Jesus Ayala on 08-02-2024 Neutrophils (Bld) [#/Vol] 6.0 10*3/uL Normal 1.8-7.7 [facility] Comment on above: Performed By: #### U PE RAND, CAMILLA,URINE, ALDOLASE, SPE, CAMILLA SERUM ####[facility] ,#### ADDONUAPLUS, T4F, ESR, CMP, CK, CBC, CRP, TSH3 ####[facility] [id number] Neutrophils/100 WBC Auto (Bl d)Ordered By: Jesus Ayala on 08-02-2024 Neutrophils/100 WBC (Bld) Automated neutrophil % . [facility] Nitrite Test strip Ql (U)Ord ered By: Jesus Ayala on 08-02-2024 Nitrite Ql (U) Negative Negative [facility] Nitrite Ql (U) Nitrite [Presence] i n Urine by Test strip Negative [facility] No Panel InformationOrdered By: Jesus Ayala on 08-02-2024 Estimated GFR (CKD-EPI) > 60.0 mL/Min [facility] Creatinine Clearance (Chem N/A [facility] Protein Electrophoresis M-Maury Not observed g/dL Not Observed [facility] Protein Electrophoresis Note Comment . [facility] Comment on above: Protein electrophore sis scan will follow via computer,mail, or head scorer delivery.Performed at: [facility] [id number] Director: Gabriel Whitman PhD, Phone: [phone] Urine Random Prot Electrophor Note Comment . [facility] Comment on above: Protein electrophore sis scan will follow via computer,mail, or head scorer delivery. Nucleated erythrocytes [Pres ence] in Blood by Automated countOrdered By: Jesus Ayala on 08-02-2024 Nucleated RBC Auto Ql (Bld) 0.1 /100{WBC} 0-0.5 [facility] Nucleated RBC Auto Ql (Bld) Nucleated erythrocytes [Presence] in Blood by Automated count 0-0.5 [facility] Platelet mean volume Auto (B ld) [Entitic vol]Ordered By: Jesus Ayala on 08-02-2024 Platelet mean volume (Bld) [Entitic vol] Platelet mean volume [Entitic volume] in Blood by Automated count 6.3-10.7 [facility] Platelet mean volume [Entiti c volume] in Blood by Automated countOrdered By: Jesus Gruberrow on 08-02-2024 Platelet mean volume (Bld) [Entitic vol] 6.6 fL Normal 6.3-10.7 [facility] Comment on above: Performed By: #### U PE RAND, CAMILLA,URINE, ALDOLASE, SPE, CAMILLA SERUM ####[facility] ,#### ADDONUAPLUS, T4F, ESR, CMP, CK, CBC, CRP, TSH3 ####[address] Platelets Auto (Bld) [#/Vol] Ordered By: Jesus Ayala on 08-02-2024 Platelets (Bld) [#/Vol] Platelets [#/vol ume] in Blood by Automated count 150-450 [facility] Platelets [#/volume] in Bloo d by Automated countOrdered By: Jesus Gruberrow on 08-02-2024 Platelets (Bld) [#/Vol] 439 10*3/uL Normal 150-450 [facility] Comment on above: Performed By: #### U PE RAND, CAMILLA,URINE, ALDOLASE, SPE, CAMILLA SERUM ####[facility] ,#### ADDONUAPLUS, T4F, ESR, CMP, CK, CBC, CRP, TSH3 ####[address] Potassium [Moles/volume] in Serum or PlasmaOrdered By: Jesus Ayala on 08-02-2024 Potassium [Moles/Vol] 3.8 mmol/L Normal 3.5-5.1 [facility] Comment on above: Performed By: #### U PE RAND, CAMILLA,URINE, ALDOLASE, SPE, CAMILLA SERUM #### [facility] , #### ADDONUAPLUS, T4F, ESR, CMP, CK, CBC, CRP, TSH3 #### [facility] [address] Potassium [Moles/Vol] Potassium [Moles/v olume] in Serum or Plasma 3.5-5.1 [facility] Protein Electro, Random Urin yonis 08-02-2024 Albumin, Urine 36.1 % Normal . [facility] Comment on above: Performed By: #### U PE RAND, CAMILLA,URINE, ALDOLASE, SPE, CAMILLA SERUM ####[facility] ,#### ADDONUAPLUS, T4F, ESR, CMP, CK, CBC, CRP, TSH3 ####[address] Nbkml-9-Fxcoiahz, Urine 4.1 % Normal . [facility] Comment on above: Performed By: #### U PE RAND, CAMILLA,URINE, ALDOLASE, SPE, CAMILLA SERUM ####[facility] ,#### ADDONUAPLUS, T4F, ESR, CMP, CK, CBC, CRP, TSH3 ####[address] Hnomu-1-Zxrcnwku, Urine 18.4 % Normal . [facility] Comment on above: Performed By: #### U PE RAND, CAMILLA,URINE, ALDOLASE, SPE, CAMILLA SERUM ####[facility] ,#### ADDONUAPLUS, T4F, ESR, CMP, CK, CBC, CRP, TSH3 ####[place] [address] [place] Beta Globulin, Urine 24.3 % Normal . [facility] Comment on above: Performed By: #### U PE RAND, CAMILLA,URINE, ALDOLASE, SPE, CAMILLA SERUM ####[facility] ,#### ADDONUAPLUS, T4F, ESR, CMP, CK, CBC, CRP, TSH3 ####[place] [address] [place] Gamma Globulin, Urine 17.1 % Normal . [facility] Comment on above: Performed By: #### U PE RAND, CAMILLA,URINE, ALDOLASE, SPE, CAMILLA SERUM ####[facility] ,#### ADDONUAPLUS, T4F, ESR, CMP, CK, CBC, CRP, TSH3 ####[address] M-Maury % Not Observed Normal Not Observed [facility] Comment on above: Performed By: #### U PE RAND, CAMILLA,URINE, ALDOLASE, SPE, CAMILLA SERUM ####[facility] ,#### ADDONUAPLUS, T4F, ESR, CMP, CK, CBC, CRP, TSH3 ####[address] Please Note: Comment Normal . [facility] Comment on above: Result Comment: Prot ein electrophoresis scan will follow via computer, mail, or head scorer delivery. PERFORMED BY: [place] [address] PATHOLOGIST [employer]ARDROBE SPECIALIST ANAHY MCKEE M.D. Performed By: #### U PE RAND, CAMILLA,URINE, ALDOLASE, SPE, CAMILLA SERUM ####[facility] ,#### ADDONUAPLUS, T4F, ESR, CMP, CK, CBC, CRP, TSH3 ####[address] Protein (U) [Mass/Vol] 9.0 mg/dL Normal Not Estab. Th e [facility] Comment on above: Performed By: #### U PE RAND, CAMILLA,URINE, ALDOLASE, SPE, CAMILLA SERUM ####[facility] ,#### ADDONUAPLUS, T4F, ESR, CMP, CK, CBC, CRP, TSH3 ####[address] Protein Electrophoresis, Ser umon 08-02-2024 Albumin [Mass/Vol] 3.9 g/dL Normal 2.9-4.4 [facility] Comment on above: Performed By: #### U PE RAND, CAMILLA,URINE, ALDOLASE, SPE, CAMILLA SERUM ####[facility] ,#### ADDONUAPLUS, T4F, ESR, CMP, CK, CBC, CRP, TSH3 ####[address] Albumin/Globulin [Mass ratio] 1.1 {ratio} Normal 0.7-1.7 [facility] Comment on above: Performed By: #### U PE RAND, CAMILLA,URINE, ALDOLASE, SPE, CAMILLA SERUM ####[facility] ,#### ADDONUAPLUS, T4F, ESR, CMP, CK, CBC, CRP, TSH3 ####[address] Ipbip-4-Kdeyeqdl 0.2 g/dL Normal 0.0-0.4 [facility] Comment on above: Performed By: #### U PE RAND, CAMILLA,URINE, ALDOLASE, SPE, CAMILLA SERUM ####[facility] ,#### ADDONUAPLUS, T4F, ESR, CMP, CK, CBC, CRP, TSH3 ####[address] Zpblw-8-Sfpxvndt 1.0 g/dL Normal 0.4-1.0 [facility] Comment on above: Performed By: #### U PE RAND, CAMILLA,URINE, ALDOLASE, SPE, CAMILLA SERUM ####[facility] ,#### ADDONUAPLUS, T4F, ESR, CMP, CK, CBC, CRP, TSH3 ####[address] Beta Globulin 1.2 g/dL Normal 0.7-1.3 [facility] Comment on above: Performed By: #### U PE RAND, CAMILLA,URINE, ALDOLASE, SPE, CAMILLA SERUM ####[facility] ,#### ADDONUAPLUS, T4F, ESR, CMP, CK, CBC, CRP, TSH3 ####[place] [address] [address] Gamma Globulin 1.3 g/dL Normal 0.4-1.8 [facility] Comment on above: Performed By: #### U PE RAND, CAMILLA,URINE, ALDOLASE, SPE, CAMILLA SERUM ####[facility] ,#### ADDONUAPLUS, T4F, ESR, CMP, CK, CBC, CRP, TSH3 ####[address] Globulin (S) [Mass/Vol] 3.6 g/dL Normal 2.2-3.9 [facility] Comment on above: Performed By: #### U PE RAND, CAMILLA,URINE, ALDOLASE, SPE, CAMILLA SERUM ####[facility] ,#### ADDONUAPLUS, T4F, ESR, CMP, CK, CBC, CRP, TSH3 ####[address] M-Maury Not Observed Normal Not Observed [facility] Comment on above: Performed By: #### U PE RAND, CAMILLA,URINE, ALDOLASE, SPE, CAMILLA SERUM ####[facility] ,#### ADDONUAPLUS, T4F, ESR, CMP, CK, CBC, CRP, TSH3 ####[address] SPE-Note Comment Normal . [facility] Comment on above: Result Comment: Prot ein electrophoresis scan will follow via computer, mail, or head scorer delivery. Performed at: - [facility] [id number] [place] Sales Associate: Gabriel Whitman PhD, Phone: [phone] PERFORMED BY: [facility] [address] [facility] [place] [address] PATHOLOGIST WARDROBE SPECIALIST ANAHY MCKEE M.D. Performed By: #### U PE RAND, CAMILLA,URINE, ALDOLASE, SPE, CAMILLA SERUM ####[facility] ,#### ADDONUAPLUS, T4F, ESR, CMP, CK, CBC, CRP, TSH3 ####[facility] [place] [address] Protein Test strip (U) [Mass /Vol]Ordered By: Jesus Ayala on 08-02-2024 Protein (U) [Mass/Vol] Negative Negative [facility] Protein (U) [Mass/Vol] Protein [Mass/vol ume] in Urine by Test strip Negative [facility] Protein [Mass/volume] in Ser um or PlasmaOrdered By: Jesus Ayala on 08-02-2024 Protein [Mass/Vol] 7.5 g/dL Normal 6.0-8.5 [facility] Comment on above: Performed By: #### U PE RAND, CAMILLA,URINE, ALDOLASE, SPE, CAMILLA SERUM #### [facility] , #### ADDONUAPLUS, T4F, ESR, CMP, CK, CBC, CRP, TSH3 #### [facility] [address] Performed By: #### U PE RAND, CAMILLA,URINE, ALDOLASE, SPE, CAMILLA SERUM ####[facility] ,#### ADDONUAPLUS, T4F, ESR, CMP, CK, CBC, CRP, TSH3 ####[address] Protein [Mass/Vol] Protein [Mass/volume ] in Serum or Plasma 6.0-8.5 [facility] RBC Auto (Bld) [#/Vol]Ordere d By: Jesus Ayala on 08-02-2024 RBC (Bld) [#/Vol] Erythrocytes [#/volu me] in Blood by Automated count 3.60-5.00 [facility] Serum aldolase measurementOr dered By: Jesus Ayala on 08-02-[address] biopsy 3.3-10.3 [facility] Comment on above: Performed at: [address] [id number] Director: Gabriel Whitman PhD, Phone: [phone] Serum globulin measurement ( mass/volume)Ordered By: Jesus Ayala on 08-02-2024 Globulin (S) [Mass/Vol] Serum globulin measurement (mass/volume) 2.2-3.9 [facility] Serum globulin measurement b y calculation (mass/volume)Ordered By: Jesus Ayala on 08-02-2024 Globulin (S) [Mass/Vol] 3.2 g/dL Normal F [facility] Comment on above: Performed By: #### U PE RAND, CAMILLA,URINE, ALDOLASE, SPE, CAMILLA SERUM #### [facility] , #### ADDONUAPLUS, T4F, ESR, CMP, CK, CBC, CRP, TSH3 #### [facility] [address] Serum immunofixation electro phoresisOrdered By: Jesus Ayala on 08-02-2024 Serum Immunofixation Comment . [facility] Comment on above: No monoclonality det ected. Serum or plasma IgA measurem ent (mass/volume)Ordered By: Jesus Ayala on 08-02-2024 IgA [Mass/Vol] IgA [Mass/volume] in Serum or Plasma 87-352 [facility] Serum or plasma IgG measurem ent (mass/volume)Ordered By: Jesus Ayala on 08-02-2024 IgG [Mass/Vol] IgG [Mass/volume] in Serum or Plasma [phone] [facility] Serum or plasma IgM measurem ent (mass/volume)Ordered By: Jesus Ayala on 08-02-2024 IgM [Mass/Vol] IgM [Mass/volume] in Serum or Plasma 26-217 [facility] Comment on above: Performed at: [address] [id number] Director: Gabriel Whitman PhD, Phone: [phone] Serum or plasma albumin ge urement (mass/volume)Ordered By: Jesus Ayala on 08-02-2024 Albumin [Mass/Vol] Albumin [Mass/volume ] in Serum or Plasma 2.9-4.4 [facility] Serum or plasma albumin/glob ulin mass ratioOrdered By: Jesus Gruberrow on 08-02-2024 Albumin/Globulin [Mass ratio] 1.3 {ratio} Normal [facility] Comment on above: Performed By: #### U PE RAND, CAMILLA,URINE, ALDOLASE, SPE, CAMILLA SERUM #### [facility] , #### ADDONUAPLUS, T4F, ESR, CMP, CK, CBC, CRP, TSH3 #### [facility] [address] Albumin/Globulin [Mass ratio] Serum or plasma albumin/globulin mass ratio 0.7-1.7 [facility] Serum or plasma alpha 1 glob ulin measurement by electrophoresis (mass/volume)Ordered By: Jesus Gruberrow on 08-02-2024 Alpha 1 globulin Elph [Mass/Vol] Serum or plasma alpha 1 globulin measurement by electrophoresis (mass/volume) 0.0-0.4 [facility] Serum or plasma alpha 2 glob ulin measurement by electrophoresis (mass/volume)Ordered By: Jesus Jamie on 08-02-2024 Alpha 2 globulin Elph [Mass/Vol] Serum or plasma alpha 2 globulin measurement by electrophoresis (mass/volume) 0.4-1.0 [facility] Serum or plasma anion gap de terminationOrdered By: Jesus Gruberrow on 08-02-2024 Anion gap [Moles/Vol] 12.2 mmol/L Normal 6.0-15.0 [facility] Comment on above: Performed By: #### U PE RAND, CAMILLA,URINE, ALDOLASE, SPE, CAMILLA SERUM #### [facility] , #### ADDONUAPLUS, T4F, ESR, CMP, CK, CBC, CRP, TSH3 #### [facility] [address] Anion gap [Moles/Vol] Serum or plasma an ion gap determination 6.0-15.0 [facility] Serum or plasma beta globuli n measurement by electrophoresis (mass/volume)Ordered By: Jesus Ayala on 08-02-2024 Beta globulin Elph [Mass/Vol] Serum or plasma beta globulin measurement by electrophoresis (mass/volume) 0.7-1.3 [facility] Serum or plasma cancer antig en 125 (CA-125) measurement (units/volume)Ordered By: Blake Hinojosa on 08-02-2024 Cancer Ag 125 Qn Serum or plasma canc er antigen 125 (CA-125) measurement (units/volume) 0.0-38.1 [facility] Comment on above: [employer] El ectrochemiluminescence Immunoassay(ECLIA)Values obtained with different assay methods or kits cannotbe used interchangeably. Results cannot be interpreted asabsolute evidence of the presence or absence of malignantdisease.Performed at: [employer] [id number] Director: Gabriel Whitman PhD, Phone: [phone] Serum or plasma carcinoembry onic antigen measurement (mass/volume)Ordered By: Blake Hinojosa on 08-02-2024 Carcinoembryonic Ag [Mass/Vol] 1.0 ng/mL 0.0-3.0 [facility] Comment on above: Serial tumor marker results determined by assays using different manufacturers or methods may not be comparable.[facility] cradle placer and method:[employer] UNICEL DXI, 2 SITE IMMUNOENZYMATIC [place] ASSAY. Serum or plasma gamma globul in measurement by electrophoresis (mass/volume)Ordered By: Jesus Ayala on 08-02-2024 Gamma globulin Elph [Mass/Vol] Serum or plasma gamma globulin measurement by electrophoresis (mass/volume) 0.4-1.8 [facility] Sodium [Moles/volume] in Ser um or PlasmaOrdered By: Jesus Ayala on 08-02-2024 Sodium [Moles/Vol] 138 mmol/L Normal 136-145 [facility] Comment on above: Performed By: #### U PE RAND, CAMILLA,URINE, ALDOLASE, SPE, CAMILLA SERUM #### [facility] , #### ADDONUAPLUS, T4F, ESR, CMP, CK, CBC, CRP, TSH3 #### [facility] [address] [place] [address] Sodium [Moles/Vol] Sodium [Moles/volume ] in Serum or Plasma 136-145 [facility] Specific gravity Test strip (U) [Rel density]Ordered By: Jesus Ayala on 08-02-2024 Specific gravity (U) [Rel density] 1.013 1.001-1.030 [facility] Specific gravity (U) [Rel density] Specific gravity of Urine by Test strip 1.001-1.030 [facility] Thyrotropin [Units/volume] i n Serum or PlasmaOrdered By: Jesus Ayala on 08-02-2024 TSH Qn 2.77 m[IU]/L Normal 0.45-5.33 [facility] Comment on above: Result Comment: PERF ORMED BY: [address] [place] [address] PATHOLOGIST WARDROBE SPECIALIST ANAHY MCKEE M.D. Performed By: #### U PE RAND, CAMILLA,URINE, ALDOLASE, SPE, CAMILLA SERUM #### [facility] , #### ADDONUAPLUS, T4F, ESR, CMP, CK, CBC, CRP, TSH3 #### [facility] [address] [place] [address] TSH Qn Thyrotropin [Units/volume] in Serum or Plasma 0.45-5.33 [facility] Thyroxine (T4) free [Mass/vo lume] in Serum or PlasmaOrdered By: Jesus Ayala on 08-02-2024 Free T4 [Mass/Vol] 0.68 ng/dL Normal 0.61-1.12 [facility] Comment on above: Performed By: #### U PE RAND, CAMILLA,URINE, ALDOLASE, SPE, CAMILLA SERUM #### [facility] , #### ADDONUAPLUS, T4F, ESR, CMP, CK, CBC, CRP, TSH3 #### [facility] [address] [place] [address] Free T4 [Mass/Vol] Thyroxine (T4) free [Mass/volume] in Serum or Plasma 0.61-1.12 [facility] Urea nitrogen [Mass/volume] in Serum or PlasmaOrdered By: Jesus Ayala on 08-02-2024 Urea nitrogen [Mass/Vol] 14 mg/dL Normal 7-25 [facility] Comment on above: Performed By: #### U PE RAND, CAMILLA,URINE, ALDOLASE, SPE, CAMILLA SERUM #### [facility] , #### ADDONUAPLUS, T4F, ESR, CMP, CK, CBC, CRP, TSH3 #### [facility] [address] [place] [address] Urea nitrogen [Mass/Vol] Urea nitrogen [Mass/volume] in Serum or Plasma 04-29 [facility] Urine alpha 1 globulin/total protein by electrophoresisOrdered By: Jesus Ayala on 08-02-2024 Alpha 1 globulin Elph (U) [Mass fraction] Urine alpha 1 globulin/total protein by electrophoresis . [facility] Urine alpha 2 globulin/total protein ratio by electrophoresisOrdered By: Jesus Ayala on 08-02-2024 Alpha 2 globulin Elph (U) [Mass fraction] Urine alpha 2 globulin/total protein ratio by electrophoresis . [facility] Urine appearanceOrdered By: Jesus Ayala on 08-02-2024 Appearance (U) Clear Normal Clear [facility] Comment on above: Order Comment: Name Collection Type:: Clean-Voided Midstream Performed By: #### U PE RAND, CAMILLA,URINE, ALDOLASE, SPE, CAMILLA SERUM #### [facility] , #### ADDONUAPLUS, T4F, ESR, CMP, CK, CBC, CRP, TSH3 #### [facility] [address] [place] [address] Urine bacteria detection by automated methodOrdered By: Jesus Ayala on 08-02-2024 Bacteria Auto Ql (U) Bacteria [Presence] in Urine by Automated None Seen [facility] Urine beta globulin measurem ent by electrophoresis (mass/volume)Ordered By: Jesus Ayala on 08-02-2024 Beta globulin Elph (U) [Mass/Vol] Urine beta globulin measurement by electrophoresis (mass/volume) . [facility] Urine protein measurement (m ass/volume)Ordered By: Jesus Ayala on 08-02-2024 Protein (U) [Mass/Vol] Protein [Mass/vol ume] in Urine Not Estab. [facility] Urobilinogen Test strip (U) [Mass/Vol]Ordered By: Jesus Ayala on 08-02-2024 Urobilinogen (U) [Mass/Vol] Normal mg/dL Normal [facility] Urobilinogen (U) [Mass/Vol] Urobilinogen [Mass/volume] in Urine by Test strip Normal [facility] WBC Auto (Bld) [#/Vol]Ordere d By: Jesus Ayala on 08-02-2024 WBC (Bld) [#/Vol] Leukocytes [#/volume ] in Blood by Automated count 3.8-11.6 [facility] XR chest 2V*on 08-02-2024 XR chest 2V* [facility] [place] [address] XRay Report Signed Patient: Mandeep Puri MR#: [id number] 15 : 1975 Acct:[id number] Age/Sex: 48 / F ADM Date: 08/02/24 Loc: XD Room: Type: [facility] Attending Dr: Jesus Ayala MD Copies to: [...] Trupti Adorno M.D.08/02/2024 4:18 PM Dictation Location: [place] [address] Transcribed By: [facility] 08/02/241617 Dictated By: Trupti Adorno MD 08/02/241616 Signed By: 08/02/241617 Normal [facility] pH Test strip (U)Ordered By: Jesus Ayala on 08-02-2024 pH (U) pH of Urine by Test strip 5.0-9.0 [facility] [facility] pH of Urine by Test stripOrd ered By: Jesus Ayala on 08-02-2024 pH (U) 7.0 [pH] Normal 5.0-9.0 [facility] Comment on above: Order Comment: Name Collection Type:: Clean-Voided Midstream Performed By: #### U PE RAND, CAMILLA,URINE, ALDOLASE, SPE, CAMILLA SERUM #### [facility] , #### ADDONUAPLUS, T4F, ESR, CMP, CK, CBC, CRP, TSH3 #### [facility] [address] ALL CBC WITH AUTO DIFFon BASOPHILS ABSOLUTE AUTO 0 N [facility] Basophils/100 WBC (Bld) 0.5 % 0.2 - 2.0 % [facility] Eosinophils/100 WBC (Bld) 2.9 % 0.9 - 7.0 % [facility] Erythrocyte distribution width (RBC) [Ratio] 14.4 % 11.0 - 15.0 % [facility] Hematocrit (Bld) [Volume fraction] 35.2 % Low 36.0 - 48.0 % [facility] Hemoglobin (Bld) [Mass/Vol] 11.4 g/dL Low 12.0 - 16.0 g/dL [facility] IMMATURE GRANULOCYTES ABS AUTO 0.06 High [facility] Immature granulocytes/100 WBC (Bld) 0.7 % High 0.0 - 0.5 % [facility] Interpretation and review of laboratory results Abnormal [facility] LYMPHOCYTES ABSOLUTE AUTO 1.1 Low [facility] Lymphocytes/100 WBC (Bld) 14 % Low 20.5 - 60.0 % [facility] MCH (RBC) [Entitic mass] 28 pg 26.7 - 34.0 pg [facility] MCHC (RBC) [Mass/Vol] 32.4 g/dL 29.9 - 35.2 g/dL [facility] MCV (RBC) [Entitic vol] 86.5 fL 81.0 - 99.0 fL [facility] MONOCYTES ABSOLUTE AUTO 0.4 [facility] Monocytes/100 WBC (Bld) 5 % 1.7 - 12.0 % [facility] NEUTROPHILS ABSOLUTE AUTO 6.3 [facility] Neutrophils/100 WBC (Bld) 76.9 % High 43.0 - 75.0 % [facility] Platelet mean volume (Bld) [Entitic vol] 8.3 fL Low 9.5 - 13.5 fL [facility] TBH EO # 0.2 [facility] TB PLT 362 [facility] TB RBC 4.07 Low [facility] TB WBC 8.2 [facility] Follow-Upon 07-07-2024 Follow-Up [id number] Antonio Puri i 1975 F Date Provider Department Center 07/07/2024 SREE BOOKER [facility] Second Fl Family History Problem Relation Age of Onset Fibromyalgia Mother Heart disease Father Hypertension Sister Polycystic kidney disease Sister Hypertension Brother Polycystic kidney disease Brother Family Status - Relation Status Age at Mother Father Sister Brother Level of Service:61471 [place] OFFICE/OUTPATIENT ESTABLISHED LOW MDM 20 MIN Reason for Visit and Comments: UTI [[id number]] - CT results Normal [facility] URINE CULTURE, ROUTINEon Bacteria identified Cx Nom (U) ESCHERICHIA COLI Abnormal [facility] Comment on above: Result Comment: >100 ,000 CFU/Ml Escherichia coli Susceptibility to Follow Performed By: #### L [id number] #### [facility] ([facility]) [address] [place] [address] CT ABDOMEN PELVIS WO IV CONT RASTon 07-02-2024 CT ABDOMEN PELVIS WO IV CONTRAST [...] kidney with innumerable circumscribed lesions within the [place] kidneys, many which are simple cysts, others [...] Epperson MD. Not Vldtd Invalid Interpretation Code [facility] ALL CBC WITH AUTO DIFFon BASOPHILS ABSOLUTE AUTO 0.0 N [place] [facility] Basophils/100 WBC (Bld) 0.4 % 0.2 - 2.0 % [facility] Eosinophils/100 WBC (Bld) 2.4 % 0.9 - 7.0 % [facility] Erythrocyte distribution width (RBC) [Ratio] 15.5 % High 11.0 - 15.0 % [facility] Hematocrit (Bld) [Volume fraction] 37.7 % 36.0 - 48.0 % [facility] Hemoglobin (Bld) [Mass/Vol] 11.9 g/dL Low 12.0 - 16.0 g/dL [facility] IMMATURE GRANULOCYTES ABS AUTO 0.03 [facility] Immature granulocytes/100 WBC (Bld) 0.4 % 0.0 - 0.5 % [facility] Interpretation and review of laboratory results Abnormal [facility] LYMPHOCYTES ABSOLUTE AUTO 1.1 Low [facility] Lymphocytes/100 WBC (Bld) 14.8 % Low 20.5 - 60.0 % [facility] MCH (RBC) [Entitic mass] 27.9 pg 26.7 - 34.0 pg [facility] MCHC (RBC) [Mass/Vol] 31.6 g/dL 29.9 - 35.2 g/dL [facility] MCV (RBC) [Entitic vol] 88.3 fL 81.0 - 99.0 fL [facility] MONOCYTES ABSOLUTE AUTO 0.4 N [facility] Monocytes/100 WBC (Bld) 5.1 % 1.7 - 12.0 % [facility] NEUTROPHILS ABSOLUTE AUTO 5.7 [facility] Neutrophils/100 WBC (Bld) 76.9 % High 43.0 - 75.0 % [facility] Platelet mean volume (Bld) [Entitic vol] 8.6 fL Low 9.5 - 13.5 fL [facility] TBH EO # 0.2 [facility] TBH PLT 333 [facility] TB RBC 4.27 [facility] TBH WBC 7.5 [facility] Orders Onlyon 06-15-2024 Orders Only [id number] Antonio Puri i 1975 F Date Provider Department Center 06/15/2024 Camron-MUNIRA PHANP None Family History Problem Relation Age of Onset Fibromyalgia Mother Heart disease Father Hypertension Sister Polycystic kidney disease Sister Hypertension Brother Polycystic kidney disease Brother Family Status - Relation Status Age at Mother Father Sister Brother Normal [facility] ALL CBC WITH AUTO DIFFon BASOPHILS ABSOLUTE AUTO 0.0 N [facility] Basophils/100 WBC (Bld) 0.5 % 0.2 - 2.0 % [facility] Eosinophils/100 WBC (Bld) 3.0 % 0.9 - 7.0 % [facility] Erythrocyte distribution width (RBC) [Ratio] 15.9 % High 11.0 - 15.0 % [facility] Hematocrit (Bld) [Volume fraction] 36.3 % 36.0 - 48.0 % [facility] Hemoglobin (Bld) [Mass/Vol] 11.8 g/dL Low 12.0 - 16.0 g/dL [facility] IMMATURE GRANULOCYTES ABS AUTO 0.04 High [facility] Immature granulocytes/100 WBC (Bld) 0.5 % 0.0 - 0.5 % [facility] Interpretation and review of laboratory results Abnormal [facility] LYMPHOCYTES ABSOLUTE AUTO 1.2 [facility] Lymphocytes/100 WBC (Bld) 14.0 % Low 20.5 - 60.0 % [facility] MCH (RBC) [Entitic mass] 28.0 pg 26.7 - 34.0 pg [facility] MCHC (RBC) [Mass/Vol] 32.5 g/dL 29.9 - 35.2 g/dL [facility] MCV (RBC) [Entitic vol] 86.0 fL 81.0 - 99.0 fL [facility] MONOCYTES ABSOLUTE AUTO 0.5 N [facility] Monocytes/100 WBC (Bld) 5.7 % 1.7 - 12.0 % [facility] NEUTROPHILS ABSOLUTE AUTO 6.4 [facility] Neutrophils/100 WBC (Bld) 76.3 % High 43.0 - 75.0 % [facility] Platelet mean volume (Bld) [Entitic vol] 8.6 fL Low 9.5 - 13.5 fL [facility] TBH EO # 0.3 [facility] TBH PLT 331 [facility] TB RBC 4.22 [facility] TB WBC 8.4 [facility] Consulton 05-19-2024 Consult [id number] Antonio Puri i 1975 F Date Provider Department Center 05/19/2024 3844-SREE BLANCHARD [facility] Second Fl Family History Problem Relation Age of Onset Fibromyalgia Mother Heart disease Father Hypertension Sister Polycystic kidney disease Sister Hypertension Brother Polycystic kidney disease Brother Family Status - Relation Status Age at Mother Father Sister Brother Level of Service:18479 [place] OFFICE/OUTPATIENT ESTABLISHED MOD MDM 30 MIN Reason for Visit and Comments: UTI [[id number]] - Recurrent chronic ecoli , has fibromyalgia and when that flairs up the UTI happens Normal [facility] CREATININE, URINE, RANDOMon 04-27-2024 Creatinine (U) [Mass/Vol] 142.0 mg/dL Normal 26-299 [facility] Comment on above: Performed By: #### L [id number] ####[facility] ([facility])[address] [place] [address] Follow-Upon 04-27-2024 Follow-Up [id number] Antonio Puri i 1975 F Date Provider Department Center 04/27/2024 124-MUNIRA PHAN None Family History Problem Relation Age of Onset Fibromyalgia Mother Heart disease Father Hypertension Sister Polycystic kidney disease Sister Hypertension Brother Polycystic kidney disease Brother Family Status - Relation Status Age at Mother Father Sister Brother Level of Service:84086 [place] OFFICE/OUTPATIENT ESTABLISHED MOD MDM 30 MIN Reason [...] mg because they are smaller pills. Normal [facility] PROTEIN, URINE, RANDOMon Protein (U) [Mass/Vol] 51.7 mg/dL [facility] Comment on above: Result Comment: Ther e are no established reference values for random urine specimens. Performed By: #### L [id number] #### [facility] ([facility]) [address] [place] [address] URINALYSISon 04-27-2024 BILIRUBIN, TOTAL PRESENCE IN URINE Negative Normal Negative [facility] Comment on above: Performed By: #### L [id number] #### [facility] ([facility]) [address] [place] [address] Clarity (U) Slightly Cloudy Abnormal [facility] Comment on above: Performed By: #### L [id number] #### [facility] ([facility]) [address] [place] [address] Color (U) Yellow Normal Yellow [facility] Comment on above: Performed By: #### L [id number] #### [facility] [address] [place] [address] Glucose (U) [Mass/Vol] Negative Normal Negative [facility] Comment on above: Performed By: #### L [id number] #### [facility] [address] [place] [address] HEMOGLOBIN PRESENCE IN URINE Small Abnormal Negative [facility] Comment on above: Performed By: #### L [id number] #### [facility] [address] [place] [address] Ketones Ql (U) Negative Normal Negative [facility] Comment on above: Performed By: #### L [id number] #### [facility] [address] [place] [address] LEUKOCYTE ESTERASE PRESENCE IN URINE BY TEST STRIP Large Abnormal Negative [facility] Comment on above: Performed By: #### L [id number] #### [facility] ([facility]) [address] [place] [address] NITRITE PRESENCE IN URINE Positive Abnormal Negative [facility] Comment on above: Performed By: #### L [id number] #### [facility] ([facility]) [address] [place] [address] pH (U) 6.0 [pH] Normal 5.0-8.0 [facility] Comment on above: Performed By: #### L [id number] #### [facility] ([facility]) [address] [place] [address] Protein (U) [Mass/Vol] 100 mg/dL Abnormal [facility] Comment on above: Performed By: #### L [id number] #### [facility] ([facility]) [address] [place] [address] Specific gravity (U) [Rel density] 1.012 Low 1.015-1.020 [facility] Comment on above: Performed By: #### L [id number] #### [facility] ([facility]) [address] [place] [address] URINALYSIS MICROSCOPICon CASTS IN URINE Normal [facility] Comment on above: Performed By: #### L [id number] #### [facility] ([facility]) [address] [place] [address] CRYSTALS IN URINE Normal [facility] Comment on above: Performed By: #### L [id number] #### [facility] ([facility]) [address] [place] [address] MUCUS (#/HPF) IN URINE SEDIMENT Occasional Normal None Seen, Occasional, Few [facility] Comment on above: Performed By: #### L [id number] #### [facility] ([facility]) [address] [place] [address] RBC (#/HPF) IN URINE SEDIMENT 11-20 Abnormal None Seen [facility] Comment on above: Performed By: #### L [id number] #### [facility] ([facility]) [address] [place] [address] SQUAMOUS EPITHELIAL CELLS (#/HPF) IN URINE SEDIMENT Moderate Abnormal None Seen, Occasional [facility] Comment on above: Performed By: #### L [id number] #### [facility] ([facility]) [address] [place] [address] WBC (LEUKOCYTE) (#/HPF) IN URINE SEDIMENT >100 Abnormal None Seen [facility] Comment on above: Performed By: #### L [id number] #### [facility] ([facility]) [address] [place] [address] URINE CULTURE, ROUTINEon Bacteria identified Cx Nom (U) ESCHERICHIA COLI Abnormal [facility] Comment on above: Result Comment: >100 ,000 CFU/Ml Escherichia coli Susceptibility to Follow Performed By: #### L [id number] ####[facility] ([facility])[address] [place] [address] BILIRUBIN, DIRECTon 04-23-20 24 Magnesium [Mass/Vol] 0.0 mg/dL Normal 0-0.2 [facility] Comment on above: Performed By: #### L [id number] #### [facility] ([facility]) [address] [place] [address] CBC WITH AUTO DIFFERENTIALon 04-23-2024 Basophils (Bld) [#/Vol] 0.05 10*3/uL Normal 0.00-0.20 [facility] Comment on above: Performed By: #### L [id number] #### [facility] ([facility]) [address] [place] [address] Basophils/100 WBC (Bld) 0.6 % Normal 0.0-1.0 U [facility] Comment on above: Performed By: #### L [id number] #### [facility] ([facility]) [address] [place] [address] Eosinophils (Bld) [#/Vol] 0.17 10*3/uL Normal 0.00-0.50 [facility] Comment on above: Performed By: #### L [id number] #### [facility] (BEAKER) [address] [place] [address] Eosinophils/100 WBC (Bld) 1.9 % Normal 0.0-6.0 [facility] Comment on above: Performed By: #### L [id number] #### [facility] [address] [place] [address] Erythrocyte distribution width (RBC) [Ratio] 15.7 % High 11.5-15.0 [facility] Comment on above: Performed By: #### L [id number] #### [facility] [address] [place] [address] ERYTHROCYTE MEAN CORPUSCULAR HEMOGLOBIN CONCENTRATION (G/DL) BY AUTOMATED 32.7 g/dL Normal 32.0-35.0 [facility] Comment on above: Performed By: #### L [id number] #### [facility] ([facility]) [address] [place] [address] Hematocrit (Bld) [Volume fraction] 39.2 % Normal 36.0-48.0 [facility] Comment on above: Performed By: #### L [id number] #### [facility] (BE[facility]ER) [address] [place] [address] Hemoglobin (Bld) [Mass/Vol] 12.8 g/dL Normal 12.0-15.0 [facility] Comment on above: Performed By: #### L [id number] #### [facility] ([facility]) [address] [place] [address] Immature granulocytes (Bld) [#/Vol] 0.06 10*3/uL Normal 0.00-0.20 [facility] Comment on above: Performed By: #### L [id number] #### [facility] (BEAKER) [address] [place] [address] Immature granulocytes/100 WBC (Bld) 0.7 % Normal 0.0-1.0 [facility] Comment on above: Performed By: #### L [id number] #### [facility] ([facility]) [address] [place] [address] Lymphocytes (Bld) [#/Vol] 1.27 10*3/uL Normal 1.20-4.00 [facility] Comment on above: Performed By: #### L [id number] #### [facility] ([facility]) [address] [place] [address] Lymphocytes/100 WBC (Bld) 14.5 % Low 20.0-45.0 [facility] Comment on above: Performed By: #### L [id number] #### [facility] ([facility]) [address] [place] [address] MCH (RBC) [Entitic mass] 27.7 pg Normal 27.0-33.0 [facility] Comment on above: Performed By: #### L [id number] #### [facility] ([facility]) [address] [place] [address] MCV (RBC) [Entitic vol] 84.8 fL Normal 82.0-98.0 U [facility] Comment on above: Performed By: #### L [id number] #### [facility] ([facility]) [address] [place] [address] Monocytes (Bld) [#/Vol] 0.40 10*3/uL Normal 0.10-1.00 [facility] Comment on above: Performed By: #### L [id number] #### [facility] ([facility]) [address] [place] [address] Monocytes/100 WBC (Bld) 4.6 % Low 5.0-12.0 U [facility] Comment on above: Performed By: #### L [id number] #### [facility] [address] [place] [address] Neutrophils (Bld) [#/Vol] 6.82 10*3/uL Normal 1.60-7.60 [facility] Comment on above: Performed By: #### L [id number] #### [facility] ([facility]) [address] [place] [address] Neutrophils/100 WBC (Bld) 77.7 % High 40.0-72.0 [facility] Comment on above: Performed By: #### L [id number] #### [facility] ([facility]) [address] [place] [address] NRBC (PER 100 WBCS) BY AUTOMATED COUNT 0.0 % Normal 0 [facility] Comment on above: Performed By: #### L [id number] #### [facility] ([facility]) [address] [place] [address] PLATELETS (10*3/UL) IN BLOOD AUTOMATED COUNT 337 10*3/uL Normal 150-400 [facility] Comment on above: Performed By: #### L [id number] #### [facility] ([facility]) [address] [place] [address] RBC (Bld) [#/Vol] 4.62 10*6/uL Normal 3.80-5.00 [facility] Comment on above: Performed By: #### L [id number] #### [facility] ([facility]) [address] [place] [address] WBC (Bld) [#/Vol] 8.77 10*3/uL Normal 4.00-10.60 [facility] Comment on above: Performed By: #### L [id number] #### [facility] ([facility]) [address] [place] [address] COMPREHENSIVE METABOLIC PANE Jonathan 04-23-2024 Albumin [Mass/Vol] 4.4 g/dL Normal 3.5-5.7 [facility] Comment on above: Performed By: #### L [id number] #### [facility] [address] [place] [address] ALP [Catalytic activity/Vol] 74 U/L Normal 34-104 [facility] Comment on above: Performed By: #### L [id number] #### [facility] [address] [place] [address] ALT [Catalytic activity/Vol] 9 U/L Normal 7-52 [facility] Comment on above: Performed By: #### L [id number] #### [facility] [address] [place] [address] Anion gap [Moles/Vol] 13 mmol/L Normal 7-20 [facility] Comment on above: Performed By: #### L [id number] #### [facility] ([facility]) [address] [place] [address] AST [Catalytic activity/Vol] 14 U/L Normal 13-39 [facility] Comment on above: Performed By: #### L [id number] #### [facility] [address] [place] [address] Bilirubin [Mass/Vol] 0.4 mg/dL Normal 0.3-1.0 [facility] Comment on above: Performed By: #### L [id number] #### [facility] [address] [place] [address] Calcium [Mass/Vol] 9.4 mg/dL Normal 8.6-10.3 [facility] Comment on above: Performed By: #### L [id number] #### [facility] ([facility] [address] [place] [address] Chloride [Moles/Vol] 104 mmol/L Normal 98-107 [facility] Comment on above: Performed By: #### L [id number] #### [facility] ([facility]) [address] [place] [address] CO2 [Moles/Vol] 25 mmol/L Normal 21-31 [facility] Comment on above: Performed By: #### L [id number] #### [facility] [address] [place] [address] Creatinine [Mass/Vol] 1.09 mg/dL Normal 0.60-1.20 [facility] Comment on above: Performed By: #### L [id number] #### [facility] ([facility]) [address] [place] [address] GLOMERULAR FILTRATION RATE ML/MIN/1.73 SQ M.PREDICTED 62.7 mL/min/1.73m*2 Normal >60.0 [facility] Comment on above: Result Comment: [facility]???s estimated glomerular filtration rate (eGFR) [...] individuals. Performed By: #### L [id number] #### [facility] ([facility]) [address] [facility] [place] [address] Glucose [Mass/Vol] 108 mg/dL High 70-100 [facility] Comment on above: Performed By: #### L [id number] #### [facility] ([facility]) [address] [place] [address] Potassium [Moles/Vol] 3.5 mmol/L Normal 3.5-5.1 [facility] Comment on above: Performed By: #### L [id number] #### [facility] ([facility]) [address] [place] [address] Protein [Mass/Vol] 7.6 g/dL Normal 6.0-8.3 [facility] Comment on above: Performed By: #### L [id number] #### [facility] ([facility]) [address] [place] [address] Sodium [Moles/Vol] 138 mmol/L Normal 136-145 [facility] Comment on above: Performed By: #### L [id number] #### [facility] ([facility]) [address] [place] [address] Urea nitrogen [Mass/Vol] 13 mg/dL Normal 7-25 [facility] Comment on above: Performed By: #### L [id number] #### [facility] ([facility]) [address] [place] [address] UREA NITROGEN/CREATININE (MASS RATIO) IN SER/PLAS 11.9 Normal [facility] Comment on above: Performed By: #### L [id number] #### [facility] ([facility]) [address] [place] [address] HEMOGLOBIN A1Con 04-23-2024 Glucose [Mass/Vol] 105 mg/dL Normal [facility] Comment on above: Performed By: #### L [id number] #### [facility] ([facility]) [address] [place] [address] HbA1c (Bld) [Mass fraction] 5.3 % Normal 4.0-6.0 [facility] Comment on above: Performed By: #### L [id number] #### [facility] ([facility]) [address] [place] [address] LIPID PANELon 04-23-2024 CHOL/HDL 4.0 mg/dL Normal [facility] Comment on above: Performed By: #### L [id number] #### [facility] ([facility]) [address] [place] [address] Cholesterol [Mass/Vol] 182 mg/dL Normal 120-200 [facility] Comment on above: Performed By: #### L [id number] #### [facility] ([facility]) [address] [place] [address] Magnesium [Mass/Vol] 166 mg/dL High 40-149 [facility] Comment on above: Result Comment: TRIG LYCERIDE REFERENCE RANGE: 20 YEARS AND OLDER CARDIOVASCULAR RISK LESS THAN 150 mg/dL LOW RISK 150 TO 199 mg/dL BORDERLINE RISK 200 mg/dL AND GREATER HIGH RISK Performed By: #### L [id number] #### [facility] [facility] [address] [place] [place] [address] Magnesium [Mass/Vol] 103 mg/dL Normal 0-160 [facility] Comment on above: Performed By: #### L [id number] #### [facility] ([facility]) [address] [place] [address] Magnesium [Mass/Vol] 46 mg/dL Normal 23-92 [facility] Comment on above: Performed By: #### L [id number] #### [facility] ([facility]) [address] [place] [address] NON HDL CHOL. (LDL+VLDL) 136 Normal [facility] Comment on above: Performed By: #### L [id number] #### [facility] ([facility]) [address] [place] [address] TOTAL VLDL-C 33 mg/dL Normal 0-40 [facility] Comment on above: Performed By: #### L [id number] #### [facility] [address] [place] [address] Labon 04-23-2024 Lab [id number] Antonio Puri i 1975 F Date Provider Department Center 04/23/2024 2245-[facility] RES[facility] [place] [facility] Family History Problem Relation Age of Onset Fibromyalgia Mother Heart disease Father Hypertension Sister Polycystic kidney disease Sister Hypertension Brother Polycystic kidney disease Brother Family Status - Relation Status Age at Mother Father Sister Brother Normal [facility] MAGNESIUMon 04-23-2024 Magnesium [Mass/Vol] 1.8 mg/dL Low 1.9-2.7 [facility] Comment on above: Performed By: #### L [id number] #### [facility] [address] [place] [address] PHOSPHORUSon 04-23-2024 Magnesium [Mass/Vol] 2.8 mg/dL Normal 2.5-5.0 [facility] Comment on above: Performed By: #### L [id number] #### [facility] ([facility]) [address] [place] [address] TACROLIMUS LEVELon Tacrolimus (Bld) [Mass/Vol] 10.5 ng/mL Normal 5.0-20.0 [facility] Comment on above: Result Comment: The [employer] Tacrolimus assay is a delayed one-step immunoassay for the quantitative determination of tacrolimus in human whole blood using the chemiluminescent microparticle immunoassay (CMIA) technology with flexible assay protocols, referred to as Chemiflex. Performed By: #### L [id number] #### [facility] ([facility]) [address] [place] [address] URIC ACIDon 04-23-2024 Magnesium [Mass/Vol] 4.0 mg/dL Normal 2.3-6.6 [facility] Comment on above: Performed By: #### L [id number] #### [facility] ([facility]) [address] [place] [address] URINALYSISon 04-23-2024 BILIRUBIN, TOTAL PRESENCE IN URINE Negative Normal Negative [facility] Comment on above: Performed By: #### L [id number] #### [facility] ([facility]) [address] [place] [address] Clarity (U) Cloudy Abnormal Clear [facility] Comment on above: Performed By: #### L [id number] #### [facility] ([facility]) [address] [place] [address] Color (U) Yellow Normal Yellow [facility] Comment on above: Performed By: #### L [id number] #### [facility] ([facility]) [address] [place] [address] Glucose (U) [Mass/Vol] Negative Normal Negative Un [facility] Comment on above: Performed By: #### L [id number] #### [facility] ([facility]) [address] [place] [address] HEMOGLOBIN PRESENCE IN URINE Negative Normal Negative [facility] Comment on above: Performed By: #### L [id number] #### [facility] ([facility]) [address] [place] [address] Ketones Ql (U) Negative Normal Negative [facility] Comment on above: Performed By: #### L [id number] #### [facility] ([facility]) [address] [place] [address] LEUKOCYTE ESTERASE PRESENCE IN URINE BY TEST STRIP Negative Normal Negative [facility] Comment on above: Performed By: #### L [id number] #### [facility] ([facility]) [address] [place] [address] NITRITE PRESENCE IN URINE Negative Normal Negative [facility] Comment on above: Performed By: #### L [id number] #### [facility] ([facility]) [address] [place] [address] pH (U) 7.0 [pH] Normal 5.0-8.0 [facility] Comment on above: Performed By: #### L [id number] #### [facility] ([facility]) [address] [place] [address] Protein (U) [Mass/Vol] Negative Normal Negative [facility] Comment on above: Performed By: #### L [id number] #### [facility] ([facility]) [address] [place] [address] Specific gravity (U) [Rel density] 1.011 Low 1.015-1.020 [facility] Comment on above: Performed By: #### L [id number] #### [facility] ([facility]) [address] [place] [address] URINALYSIS MICROSCOPICon AMORPHOUS CRYSTALS (#/HPF) IN URINE Few Abnormal None Seen [facility] Comment on above: Performed By: #### L [id number] #### [facility] ([facility]) [address] [place] [address] CASTS IN URINE Normal [facility] Comment on above: Performed By: #### L [id number] #### [facility] ([facility]) [address] [place] [address] CRYSTALS IN URINE Normal [facility] Comment on above: Performed By: #### L [id number] #### [facility] ([facility]) [address] [place] [address] MUCUS (#/HPF) IN URINE SEDIMENT Occasional Normal None Seen, Occasional, Few [facility] Comment on above: Performed By: #### L [id number] #### [facility] ([facility]) [address] [place] [address] RBC (#/HPF) IN URINE SEDIMENT 3-5 Abnormal None Seen [facility] Comment on above: Performed By: #### L [id number] #### [facility] ([facility]) [address] [place] [address] SQUAMOUS EPITHELIAL CELLS (#/HPF) IN URINE SEDIMENT Many Abnormal None Seen, Occasional [facility] Comment on above: Performed By: #### L [id number] #### [facility] ([facility]) [address] [place] [address] WBC (LEUKOCYTE) (#/HPF) IN URINE SEDIMENT 3-5 Abnormal None Seen [facility] Comment on above: Performed By: #### L [id number] #### [facility] ([facility]) [address] [place] [address] URINE CULTURE, ROUTINEon Bacteria identified Cx Nom (U) <10,000 CFU/ML No Significant Growth Normal [facility] Comment on above: Performed By: #### L [id number] #### [facility] ([facility]) [address] [place] [address] US RENAL COMPLETEon 04-14-20 24 US RENAL COMPLETE EXAM: Renal Ultrasou nd with Doppler: REASON FOR EXAM: Polycystic kidneys. COMPARISON: None. TECHNIQUE: Real-time ultrasonographic evaluation of the kidneys is performed with color flow Doppler. FINDINGS: There is a transplanted right kidney. Right kidney: Numerous [place] right renal cysts. No hydronephrosis. Left kidney: Numerous [place] left renal cysts. No hydronephrosis. Uniform and [...] report is generated using voice recognition reporting (Fresh Dish). On occasion Fresh Dish erroneously drops words from the report or replaces the spoken word with similar sounding words. Please call with any questions/concerns regarding this report.* Dictated and transcribed 04/14/2024/heriberto This report has been electronically signed and approved by the interpreting radiologist. Electronically Signed René Raymond M.D. 2024-04-14 16:31:56 Normal Not Available Urine Cultureon 03-15-2024 Bacteria identified Cx Nom (U) ORGANISM: Escherichia coli (MDRO) (O:ESCCOLMDRO) Dupo Count >100,000 Aerobic CODI Charge (NMIC56) - [...] RESISTANT TO ALL B-LACTAM DRUGS. PERFORMED BY: [place] [address] PATHOLOGIST WARDROBE SPECIALIST ANAHY MCKEE M.D. Normal [facility] Comment on above: Performed By: #### C UU #### [place] [id number] [facility] Documentationon 03-03-2024 Documentation [id number] KhushiAntonio clemens 1975 F Date Provider Department Center 03/03/2024 750-JOSE RAAFEL GAVIRIA TXP None Family History Problem Relation Age of Onset Fibromyalgia Mother Heart disease Father Hypertension Sister Polycystic kidney disease Sister Hypertension Brother Polycystic kidney disease Brother Family Status - Relation Status Age at Mother Father Sister Brother Normal [facility] Follow-Upon 12-23-2023 Follow-Up [id number] Antonio Puri sarath 1975 F Date Provider Department Center 12/23/2023 124-MUNIRA PHAN TXP None Family History Problem Relation Age of Onset Fibromyalgia Mother Heart disease Father Hypertension Sister Polycystic kidney disease Sister Hypertension Brother Polycystic kidney disease Brother Family Status - Relation Status Age at Mother Father Sister Brother Level of Service:12769 [place] OFFICE/OUTPATIENT ESTABLISHED MOD MDM 30 MIN Reason for Visit and Comments: Kidney Follow-up [] - Pt has questions about her lab work. Normal [facility] PAPITO Antinuclear Antibodieson 11-06-2023 Antinuclear Abs, IFA Negative Normal . [facility] Comment on above: Result Comment: Nega tive <1:80 Borderline 1:80 Positive >1:80 ICAP nomenclature: AC-0 For more information about Hep-2 cell patterns use ANApatterns.org, the official website for the International Consensus on Antinuclear Antibody (PAPITO) Patterns (ICAP). Performed at: [facility] Lab[address] [id number] [place] Sales Associate: Gabriel Whitman PhD, Phone: [phone] PERFORMED BY: [facility] [address] [place] [address] PATHOLOGIST WARDROBE SPECIALIST ANAHY MCKEE M.D. Performed By: #### C BC, CMP, CK, CRP, ESR ####[address]#### PAPITO ####[facility] , Alanine aminotransferase [En zymatic activity/volume] in Serum or PlasmaOrdered By: Perri Ceja on 11-06-2023 ALT [Catalytic activity/Vol] 20 U/L Normal 7-52 [facility] Comment on above: Performed By: #### C BC, CMP, CK, CRP, ESR ####[place] [address] [place]#### PAPITO ####[facility] , Albumin [Mass/volume] in Ser um or Plasma by Bromocresol green (BCG) dye binding methoOrdered By: Perri Ceja on 11-06-2023 Albumin BCG dye [Mass/Vol] 4.7 g/dL 3.5-5.7 [facility] Alkaline phosphatase [Enzyma tic activity/volume] in Serum or PlasmaOrdered By: Perri Ceja on 11-06-2023 ALP [Catalytic activity/Vol] 96 U/L Normal 34-104 [facility] Comment on above: Performed By: #### C BC, CMP, CK, CRP, ESR ####[place] [address] [place]#### PAPITO ####[facility] , Aspartate aminotransferase [ Enzymatic activity/volume] in Serum or PlasmaOrdered By: Perri Ceja on 11-06-2023 AST [Catalytic activity/Vol] 16 U/L Normal 13-39 [facility] Comment on above: Performed By: #### C BC, CMP, CK, CRP, ESR ####[place] [address] [place]#### PAPITO ####[facility] , Automated basophil %Ordered By: Perri Ceja on 11-06-2023 Basophils/100 WBC (Bld) 0.7 % Normal . [facility] Comment on above: Performed By: #### C BC, CMP, CK, CRP, ESR ####[place] [address] [place]#### PAPITO ####[facility] , Automated basophil countOrde red By: Perri Ceja on 11-06-2023 Basophils (Bld) [#/Vol] 0.1 10*3/uL Normal 0.0-0.2 [facility] Comment on above: Performed By: #### C BC, CMP, CK, CRP, ESR ####[address]#### PAPITO ####[facility] , Automated blood monocyte cou ntOrdered By: Perri Ceja on 11-06-2023 Monocytes (Bld) [#/Vol] 0.6 10*3/uL Normal 0.0-0.8 [facility] Comment on above: Performed By: #### C BC, CMP, CK, CRP, ESR ####[place] [address] [place]#### PAPITO ####[facility] , Automated eosinophil %Ordere d By: Perri Ceja on 11-06-2023 Eosinophils/100 WBC (Bld) 3.0 % Normal . [facility] Comment on above: Performed By: #### C BC, CMP, CK, CRP, ESR ####[place] [address] [place]#### PAPITO ####[facility] , Automated eosinophil countOr dered By: Perri Ceja on 11-06-2023 Eosinophils (Bld) [#/Vol] 0.3 10*3/uL Normal 0.0-0.45 [facility] Comment on above: Performed By: #### C BC, CMP, CK, CRP, ESR ####[place] [address] [address]#### PAPITO ####[facility] , Automated monocyte %Ordered By: Perri Ceja on 11-06-2023 Monocytes/100 WBC (Bld) 6.6 % Normal . [facility] Comment on above: Performed By: #### C BC, CMP, CK, CRP, ESR ####[address]#### PAPIOT ####[facility] , Automated neutrophil %Ordere d By: Perri Ceja on 11-06-2023 Neutrophils/100 WBC (Bld) 72.1 % Normal . [facility] Comment on above: Performed By: #### C BC, CMP, CK, CRP, ESR ####[address]#### PAPITO ####[facility] , Bilirubin.total [Mass/volume ] in Serum or PlasmaOrdered By: Perri Ceja on 11-06-2023 Bilirubin [Mass/Vol] 0.4 mg/dL Normal 0.3-1.0 [facility] Comment on above: Performed By: #### C BC, CMP, CK, CRP, ESR ####[place] [address] [place]#### PAPITO ####[facility] , C reactive protein [Mass/vol ume] in Serum or PlasmaOrdered By: Perri Ceja on 11-06-2023 CRP [Mass/Vol] 2.0 mg/dL 0.0-0.5 [facility] C-Reactive Proteinon 024 C-Reactive Protein 2.0 mg/dL High 0.0-0.5 [facility] Comment on above: Result Comment: PERF ORMED BY: [facility] [place] [address] PATHOLOGIST WARDROBE SPECIALIST ANAHY MCKEE M.D. Performed By: #### C BC, CMP, CK, CRP, ESR ####[address]#### PAPITO ####[facility] , Calcium [Mass/volume] in Ser um or PlasmaOrdered By: Perri Ceja on 11-06-2023 Calcium [Mass/Vol] 10.3 mg/dL Normal 8.6-10.3 [facility] Comment on above: Performed By: #### C BC, CMP, CK, CRP, ESR ####[address]#### PAPITO ####[facility] , Carbon dioxide, total [Moles /volume] in Serum or PlasmaOrdered By: Perri Ceja on 11-06-2023 CO2 [Moles/Vol] 26.1 mmol/L Normal 21.0-31.0 [facility] Comment on above: Performed By: #### C BC, CMP, CK, CRP, ESR ####[address]#### PAPITO ####[facility] , Chloride [Moles/volume] in S aislinn or PlasmaOrdered By: Perri Ceja on 11-06-2023 Chloride [Moles/Vol] 104 mmol/L Normal 98-107 [facility] Comment on above: Performed By: #### C BC, CMP, CK, CRP, ESR ####[place] [address] [place]#### PAPITO ####[facility] , Complete Blood Count Auto Di ffon 11-06-2023 Mean Corpuscular HGB Conc 33.6 g/dL Normal 32.0-35.0 [facility] Comment on above: Performed By: #### C BC, CMP, CK, CRP, ESR ####[address]#### PAPITO ####[facility] , NRBC% 0.1 /100{WBC} Normal 0-0.5 [facility] Comment on above: Performed By: #### C BC, CMP, CK, CRP, ESR ####[place] [address] [place]#### PAPITO ####[facility] , Comprehensive Metabolic Pane jonathan 11-06-2023 Albumin [Mass/Vol] 4.7 g/dL Normal 3.5-5.7 [facility] Comment on above: Performed By: #### C BC, CMP, CK, CRP, ESR ####[address]#### PAPITO ####[facility] , GFR/1.73 sq M.predicted MDRD (S/P/Bld) [Vol rate/Area] 57.919 mL/min/{1.73_m2} Normal [facility] Comment on above: Performed By: #### C BC, CMP, CK, CRP, ESR ####[address]#### PAPITO ####[facility] , Creatine kinase [Enzymatic a ctivity/volume] in Serum or PlasmaOrdered By: Perri Ceja on 11-06-2023 CK [Catalytic activity/Vol] 30 U/L Normal 30-223 [facility] Comment on above: Result Comment: PERF ORMED BY: [facility] [address] [place] [address] PATHOLOGIST WARDROBE SPECIALIST ANAHY MCKEE M.D. Performed By: #### C BC, CMP, CK, CRP, ESR ####[place] [address] [place]#### PAPITO ####[facility] , Creatinine [Mass/volume] in Serum or PlasmaOrdered By: Perri Ceja on 11-06-2023 Creatinine [Mass/Vol] 1.17 mg/dL Normal 0.60-1.20 [facility] Comment on above: Performed By: #### C BC, CMP, CK, CRP, ESR ####[place] [address] [address]#### PAPITO ####[facility] , Erythrocyte Sedimentation Ra mathieu 11-06-2023 ESR (Bld) [Velocity] 49 mm/h High 0-19 [facility] Comment on above: Result Comment: PERF ORMED BY: [facility] [address] [place] [address] PATHOLOGIST WARDROBE SPECIALIST ANAHY MCKEE M.D. Performed By: #### C BC, CMP, CK, CRP, ESR ####[address]#### PAPITO ####[facility] , Erythrocyte distribution wid th [Ratio] by Automated countOrdered By: Perri Ceja on 11-06-2023 Erythrocyte distribution width (RBC) [Ratio] 15.3 % Normal 11.9-15.3 [facility] Comment on above: Performed By: #### C BC, CMP, CK, CRP, ESR ####[address]#### PAPITO ####[facility] , Erythrocyte sedimentation ra te by Photometric methodOrdered By: Perri Ceja on 11-06-2023 ESR Photometric method (Bld) [Velocity] 49 mm/hr 0-19 [facility] Erythrocytes [#/volume] in B lood by Automated countOrdered By: Perri Ceja on 11-06-2023 RBC (Bld) [#/Vol] 4.60 10*6/uL Normal 3.60-5.00 [facility] Comment on above: Performed By: #### C BC, CMP, CK, CRP, ESR ####[address] [address] [place]#### PAPITO ####[facility] , Glucose [Mass/volume] in Ser um or PlasmaOrdered By: Perri Ceja on 11-06-2023 Glucose [Mass/Vol] 91 mg/dL Normal 70-100 [facility] Comment on above: ADA recommended refe rence rangeRandom Glucose Reference Range is dependent on time and content of last meal. Glucose of more than 200 mg/dL in a nonstressed, ambulatory subject supports the diagnosis of Diabetes Mellitus. Result Comment: [place] om Glucose Reference Range is dependent on time and content of last meal. Glucose of more than 200 mg/dL in a nonstressed, ambulatory subject supports the diagnosis of Diabetes Mellitus. ADA recommended reference range Performed By: #### C BC, CMP, CK, CRP, ESR ####[address]#### PAPITO ####[facility] , Hematocrit [Volume Fraction] of Blood by Automated countOrdered By: Perri Ceja on 11-06-2023 Hematocrit (Bld) [Volume fraction] 38.9 % Normal 34.0-46.4 [facility] Comment on above: Performed By: #### C BC, CMP, CK, CRP, ESR ####[address]#### PAPITO ####[facility] , Hemoglobin [Mass/volume] in BloodOrdered By: Perri Ceja on 11-06-2023 Hemoglobin (Bld) [Mass/Vol] 13.1 g/dL Normal 11.8-15.4 [facility] Comment on above: Performed By: #### C BC, CMP, CK, CRP, ESR ####[place] [address] [place]#### PAPITO ####[facility] , Leukocytes [#/volume] correc noah for nucleated erythrocytes in Blood by Automated counOrdered By: Perri Ceja on 11-06-2023 WBC corrected for nucl RBC Auto (Bld) [#/Vol] 8.8 10*3/uL 3.8-11.6 [facility] Leukocytes [#/volume] in Blo od by Automated countOrdered By: Perri Ceja on 11-06-2023 WBC (Bld) [#/Vol] 8.8 10*3/uL Normal 3.8-11.6 [facility] Comment on above: Performed By: #### C BC, CMP, CK, CRP, ESR ####[place] [address] [place]#### PAPITO ####[facility] , Lymphocytes [#/volume] in Bl ood by Automated countOrdered By: Perri Ceja on 11-06-2023 Lymphocytes (Bld) [#/Vol] 1.5 10*3/uL Normal 1.00-4.8 [facility] Comment on above: Performed By: #### C BC, CMP, CK, CRP, ESR ####[address]#### PAPITO ####[facility] , Lymphocytes/100 leukocytes i n Blood by Automated countOrdered By: Perri Ceja on 11-06-2023 Lymphocytes/100 WBC (Bld) 17.6 % Normal . [facility] Comment on above: Performed By: #### C BC, CMP, CK, CRP, ESR ####[place] [address] [place]#### PAPITO ####[facility] , MCH [Entitic mass] by Automa noah countOrdered By: Perri Ceja on 11-06-2023 MCH (RBC) [Entitic mass] 28.4 pg Normal 24.7-34.3 [facility] Comment on above: Performed By: #### C BC, CMP, CK, CRP, ESR ####[place] [address] [place]#### PAPITO ####[facility] , MCHC Auto (RBC) [Mass/Vol]Or dered By: Perri Ceja on 11-06-2023 MCHC (RBC) [Mass/Vol] 33.6 g/dL 32.0-35.0 [facility] MCV [Entitic volume] by Auto mated countOrdered By: Perri Ceja on 11-06-2023 MCV (RBC) [Entitic vol] 84.6 fL Normal 80-100 [facility] Comment on above: Performed By: #### C BC, CMP, CK, CRP, ESR ####[facility]#### PAPITO ####[facility] , Neutrophils [#/volume] in Bl ood by Automated countOrdered By: Perri Ceja on 11-06-2023 Neutrophils (Bld) [#/Vol] 6.3 10*3/uL Normal 1.8-7.7 [facility] Comment on above: Performed By: #### C BC, CMP, CK, CRP, ESR ####[address]#### PAPITO ####[facility] , No Panel InformationOrdered By: Perri Ceja on 11-06-2023 Estimated GFR (CKD-EPI) 57.919 mL/Min [facility] Creatinine Clearance (Chem N/A [facility] Nucleated erythrocytes [Pres ence] in Blood by Automated countOrdered By: Perri Ceja on 11-06-2023 Nucleated RBC Auto Ql (Bld) 0.1 /100{WBC} 0-0.5 [facility] Platelet mean volume [Entiti c volume] in Blood by Automated countOrdered By: Perri Ceja on 11-06-2023 Platelet mean volume (Bld) [Entitic vol] 6.9 fL Normal 6.3-10.7 [facility] Comment on above: Performed By: #### C BC, CMP, CK, CRP, ESR ####[place] [address] [address]#### PAPITO ####[facility] , Platelets [#/volume] in Bloo d by Automated countOrdered By: Perri Ceja on 11-06-2023 Platelets (Bld) [#/Vol] 393 10*3/uL Normal 150-450 [facility] Comment on above: Performed By: #### C BC, CMP, CK, CRP, ESR ####[address]#### PAPITO ####[facility] , Potassium [Moles/volume] in Serum or PlasmaOrdered By: Perri Ceja on 11-06-2023 Potassium [Moles/Vol] 3.8 mmol/L Normal 3.5-5.1 [facility] Comment on above: Performed By: #### C BC, CMP, CK, CRP, ESR ####[address]#### PAPITO ####[facility] , Protein [Mass/volume] in Ser um or PlasmaOrdered By: Perri Ceja on 11-06-2023 Protein [Mass/Vol] 7.7 g/dL Normal 6.4-8.9 [facility] Comment on above: Performed By: #### C BC, CMP, CK, CRP, ESR ####[address]#### PAPITO ####[facility] , Serum globulin measurement b y calculation (mass/volume)Ordered By: Perri Ceja on 11-06-2023 Globulin (S) [Mass/Vol] 3.0 g/dL Normal [facility] Comment on above: Performed By: #### C BC, CMP, CK, CRP, ESR ####[place] [address] [place]#### PAPITO ####[facility] , Serum or plasma albumin/glob ulin mass ratioOrdered By: Perri Ceja on 11-06-2023 Albumin/Globulin [Mass ratio] 1.6 {ratio} Normal [facility] Comment on above: Performed By: #### C BC, CMP, CK, CRP, ESR ####[place] [address] [place] [id number] [place]#### PAPITO ####[facility] , Serum or plasma anion gap de terminationOrdered By: Perri Ceja on 11-06-2023 Anion gap [Moles/Vol] 12.7 mmol/L Normal 6.0-15.0 [facility] Comment on above: Performed By: #### C BC, CMP, CK, CRP, ESR ####[place] [address] [place] [id number] [place]#### PAPITO ####[facility] , Sodium [Moles/volume] in Ser um or PlasmaOrdered By: Perri Ceja on 11-06-2023 Sodium [Moles/Vol] 139 mmol/L Normal 136-145 [facility] [facility] Comment on above: Performed By: #### C BC, CMP, CK, CRP, ESR ####[place] [id number] [place]#### PAPITO ####[facility] , Urea nitrogen [Mass/volume] in Serum or PlasmaOrdered By: Perri Ceja on 11-06-2023 Urea nitrogen [Mass/Vol] 17 mg/dL Normal 7-25 [facility] Comment on above: Performed By: #### C BC, CMP, CK, CRP, ESR ####[place] [id number] [place] [id number] [place]#### PAPITO ####[facility] , PTH INTACTon 07-30-2022 PTH, Intact 107 pg/mL Critically high 15-65 [facility] Comment on above: Performed By: #### M G, URIC, RENAL #### [facility] [address] [address] [address] Hari Palmer FERRITINon 07-29-2022 Ferritin [Mass/Vol] 194.0 ng/mL Critically high 6.2-137.0 [facility] Comment on above: Performed By: #### M G, URIC, RENAL #### [facility] [address] [place] [address] Dr. Hari Palmer HEMOGRAM AND PLATELon 2021 Hematocrit (Bld) [Volume fraction] 32.8 % Critically low 36.0-48.0 [facility] Comment on above: Performed By: #### M G, URIC, RENAL #### [facility] [address] [place] [address] Dr. Hari Palmer Hemoglobin (Bld) [Mass/Vol] 10.8 g/dL Critically low 12.0-16.0 [facility] Comment on above: Performed By: #### M G, URIC, RENAL #### [facility] [address] [place] [address] Dr. Hari Palmer MCH (RBC) [Entitic mass] 31.7 pg Normal 26.7-34.0 [facility] Comment on above: Performed By: #### M G, URIC, RENAL #### [facility] [address] [place] [address] Dr. Hari Palmer MCHC (RBC) [Mass/Vol] 32.9 g/dL Normal 29.9-35.2 [facility] Comment on above: Performed By: #### M G, URIC, RENAL #### [facility] [address] [place] [address] Dr. Hari Palmer MCV (RBC) [Entitic vol] 96.2 fL Normal 81.0-99.0 [facility] Comment on above: Performed By: #### M G, URIC, RENAL #### [facility] [address] [place] [address] Dr. Hari Palmer PLT 297 103/ul Normal 150-450 [facility] Comment on above: Performed By: #### M G, URIC, RENAL #### [facility] [address] [place] [address] Dr. Hari Palmer RBC 3.41 106/ul Critically low 4.20-5.40 [facility] Comment on above: Performed By: #### M G, URIC, RENAL #### [facility] [address] [address] [address] Hari Palmer WBC 7.1 103/ul Normal 4.0-11.0 [facility] Comment on above: Performed By: #### M G, URIC, RENAL #### [facility] [address] [place] [address] Dr. Hari Palmer IRON AND TIBCon 07-29-2022 % SATURATION 19.0 % Normal [facility] Comment on above: Performed By: #### M G, URIC, RENAL #### [facility] [address] [place] [address] Dr. aHri Palmer Iron [Mass/Vol] 48.0 ug/dL Critically low 50.0-170.0 [facility] Comment on above: Performed By: #### M G, URIC, RENAL #### [facility] [address] [place] [address] Dr. Hari Palmer TIBC DIRECT 252.0 ug/dL Normal 250.0-450.0 [facility] Comment on above: Performed By: #### M G, URIC, RENAL #### [facility] [address] [place] [address] Dr. Hari Palmer MAGNESIUMon 07-29-2022 Magnesium [Mass/Vol] 2.0 mg/dL Normal 1.8-2.4 [facility] Comment on above: Performed By: #### M G, URIC, RENAL #### [facility] [address] [place] [address] Dr. Hari Palmer RENAL FUNCTION PANELon 07-29 Albumin [Mass/Vol] 3.6 g/dL Normal 3.4-5.0 [facility] Comment on above: Performed By: #### M G, URIC, RENAL #### [facility] [address] [place] [address] Dr. Hari Palmer Calcium [Mass/Vol] 8.7 mg/dL Normal 8.5-10.1 [facility] Comment on above: Performed By: #### M G, URIC, RENAL #### [facility] [address] [address] [address] Hari Palmer Chloride [Moles/Vol] 104 mmol/L Normal 98-107 [facility] Comment on above: Performed By: #### M G, URIC, RENAL #### [facility] [address] [place] [address] Dr. Hari Palmer CO2 [Moles/Vol] 21.8 mmol/L Normal 21.0-32.0 [facility] Comment on above: Performed By: #### M G, URIC, RENAL #### [facility] [address] [place] [address] Dr. Hari Palmer Creatinine [Mass/Vol] 3.83 mg/dL Critically high 0.55-1.02 [facility] Comment on above: Performed By: #### M G, URIC, RENAL #### [facility] [address] [place] [address] Dr. Hari Palmer EGFR-AF JAMAICAN 15 mL/min/1.73m2 Critically low >=60 [facility] Comment on above: Performed By: #### M G, URIC, RENAL #### [facility] [address] [place] [address] Dr. Hari Palmer EGFR-NON AF JAMAICAN 13 mL/min/1.73m2 Critically low >=60 [facility] Comment on above: Performed By: #### M G, URIC, RENAL #### [facility] [address] [place] [address] Dr. Hari Palmer Glucose [Mass/Vol] 108 mg/dL Critically high 74-106 [facility] Comment on above: Performed By: #### M G, URIC, RENAL #### [facility] [address] [place] [address] Dr. Hari Palmer Phosphate [Mass/Vol] 5.4 mg/dL Critically high 2.6-4.7 [facility] Comment on above: Performed By: #### M G, URIC, RENAL #### [facility] [address] [place] [address] Dr. Hari Palmer Potassium [Moles/Vol] 3.9 mmol/L Normal 3.5-5.1 [facility] Comment on above: Performed By: #### M G, URIC, RENAL #### [facility] [address] [place] [address] Dr. Hari Palmer Sodium [Moles/Vol] 137 mmol/L Normal 136-145 [facility] Comment on above: Performed By: #### M G, URIC, RENAL #### [facility] [address] [place] [address] Dr. Hari Palmer Urea nitrogen [Mass/Vol] 47.0 mg/dL Critically high 7.0-18.0 [facility] Comment on above: Performed By: #### M G, URIC, RENAL #### [facility] [address] [place] [address] Dr. Hari Palmer URIC ACID SERUMon 07-29-2022 Urate [Mass/Vol] 6.3 mg/dL Critically high 2.6-6.0 [facility] Comment on above: Performed By: #### M G, URIC, RENAL #### [facility] [address] [place] [address] Dr. Hari Palmer URINE T PROTEIN CREAT RATIOo n 07-29-2022 Protein (U) [Mass/Vol] 29.7 mg/dL Critically high <=12.0 [facility] Comment on above: Performed By: #### M G, URIC, RENAL #### [facility] [address] [place] [address] Dr. Hari Palmer UR PROT CREAT RAT 0.56 Normal [facility] Comment on above: Performed By: #### M G, URIC, RENAL #### [facility] [address] [place] [address] Dr. Hari Palmer URINE CREAT 53.35 mg/dL Normal 20.00-300.00 [facility] Comment on above: Performed By: #### M G, URIC, RENAL #### [facility] [address] [place] [address] Dr. Hari Pamler VITAMIN D 25 OHon 07-29-2022 VIT D 25-OH 38.8 ng/mL Normal [facility] Comment on above: Performed By: #### M G, URIC, RENAL #### [facility] [address] [place] [address] Dr. Hari Palmer VIT D RANGES SEE BELOW Normal [facility] Comment on above: Result Comment: <20 ng/mL Vit D deficient 20 - <30 ng/mL Vit D insufficient 30 - 100 ng/mL Vit D sufficient >100 ng/mL Potential Toxicity Performed By: #### M G, URIC, RENAL #### [facility] [address] [address] [address] Hari Palmer Albumin [Mass/volume] in Ser um or PlasmaOrdered By: Stanley Forman on 06-20-2022 Albumin [Mass/Vol] 3.9 g/dL 3.2-5.5 [facility] Basophils Auto (Bld) [#/Vol] Ordered By: Stanley Forman on 06-20-2022 Basophils (Bld) [#/Vol] 0.1 10*3/uL 0.0-0.2 [facility] Basophils/100 WBC Auto (Bld) Ordered By: Stanley Forman on 06-20-2022 Basophils/100 WBC (Bld) 0.7 % . [facility] Blood hemoglobin measurement (mass/volume)Ordered By: Stanley Forman on 06-20-2022 Hemoglobin (Bld) [Mass/Vol] 10.8 g/dL 11.8-15.4 [facility] Blood leukocytes automated c ount (number/volume)Ordered By: Stanley Forman on 06-20-2022 WBC (Bld) [#/Vol] 11.8 10*3/uL 4.5-11.0 [facility] C reactive protein [Mass/vol ume] in Serum or PlasmaOrdered By: Stanley Forman on 06-20-2022 CRP [Mass/Vol] 5.2 mg/dL 0.0-1.0 [facility] Creatinine and Glomerular fi ltration rate.predicted panel (S/P/Bld)Ordered By: Stanley Forman on 06-20-2022 Creatinine [Mass/Vol] 4.49 mg/dL 0.44-1.03 [facility] Eosinophils Auto (Bld) [#/Vo l]Ordered By: Stanley Forman on 06-20-2022 Eosinophils (Bld) [#/Vol] 0.4 10*3/uL 0.0-0.45 [facility] Eosinophils/100 WBC Auto (Bl d)Ordered By: Stanley Forman on 06-20-2022 Eosinophils/100 WBC (Bld) 3.2 % . [facility] Erythrocyte distribution wid th Auto (RBC) [Ratio]Ordered By: Stanley Forman on 06-20-2022 Erythrocyte distribution width (RBC) [Ratio] 14.0 % 11.9-15.3 [facility] Erythrocyte sedimentation ra te by Photometric methodOrdered By: Stanley Forman on 06-20-2022 ESR Photometric method (Bld) [Velocity] 67 mm/hr 0-19 [facility] Estimated glomerular filtrat ion rate (GFR) non- AmericanOrdered By: Stanley Forman on 06-20-2022 GFR/1.73 sq M.predicted among non-blacks MDRD (S/P/Bld) [Vol rate/Area] 11 mL/Min [facility] Globulin Calc (S) [Mass/Vol] Ordered By: Stanley Forman on 06-20-2022 Globulin (S) [Mass/Vol] 3.5 g/dL F [facility] Hematocrit Auto (Bld) [Volum e fraction]Ordered By: Stanley Forman on 06-20-2022 Hematocrit (Bld) [Volume fraction] 33.1 % 34.0-46.4 [facility] - Hematology and Cell countsOrdered By: Stanley Forman on 06-20-2022 Nucleated RBC/100 WBC (Bld) [Ratio] 0.0 % 0-0.5 [facility] Lymphocytes Auto (Bld) [#/Vo l]Ordered By: Stanley Forman on 06-20-2022 Lymphocytes (Bld) [#/Vol] 1.5 10*3/uL 1.00-4.8 [facility] Lymphocytes/100 WBC Auto (Bl d)Ordered By: Stanley Forman on 06-20-2022 Lymphocytes/100 WBC (Bld) 12.3 % . [facility] MCH Auto (RBC) [Entitic mass ]Ordered By: Stanley Forman on 06-20-2022 MCH (RBC) [Entitic mass] 31.1 pg 24.7-34.3 [facility] MCHC Auto (RBC) [Mass/Vol]Or dered By: Stanley Forman on 06-20-2022 MCHC (RBC) [Mass/Vol] 32.5 g/dL 32.0-35.0 [facility] MCV Auto (RBC) [Entitic vol] Ordered By: Stanley Forman on 06-20-2022 MCV (RBC) [Entitic vol] 95.6 fL 80-100 [facility] Monocytes Auto (Bld) [#/Vol] Ordered By: Stanley Forman on 06-20-2022 Monocytes (Bld) [#/Vol] 0.5 10*3/uL 0.0-0.8 [facility] Monocytes/100 WBC Auto (Bld) Ordered By: Stanley Forman on 06-20-2022 Monocytes/100 WBC (Bld) 4.1 % . [facility] Neutrophils Auto (Bld) [#/Vo l]Ordered By: Stanley Forman on 06-20-2022 Neutrophils (Bld) [#/Vol] 9.4 10*3/uL 1.8-7.7 [facility] Neutrophils/100 WBC Auto (Bl d)Ordered By: Stanley Forman on 06-20-2022 Neutrophils/100 WBC (Bld) 79.7 % . [facility] No Panel InformationOrdered By: Stanley Forman on 06-20-2022 Estimated GFR () 13 mL/Min [facility] Comment on above: GFR estimated refere nce range: According to KDOQI guidelines, <60 ml/min/1.73m2 is sufficient to diagnose a patient with chronic kidney disease. Pharmacy Creatinine Clearance (Chem 16.48 [facility] Platelet mean volume Auto (B ld) [Entitic vol]Ordered By: Stanley Forman on 06-20-2022 Platelet mean volume (Bld) [Entitic vol] 7.0 fL 6.3-10.7 [facility] Platelets Auto (Bld) [#/Vol] Ordered By: Stanley Forman on 06-20-2022 Platelets (Bld) [#/Vol] 287 10*3/uL 150-450 [facility] Protein [Mass/volume] in Ser um or PlasmaOrdered By: Stanley Forman on 06-20-2022 Protein [Mass/Vol] 7.4 g/dL 6.1-7.9 [facility] RBC Auto (Bld) [#/Vol]Ordere d By: Stanley Forman on 06-20-2022 RBC (Bld) [#/Vol] 3.46 10*6/uL 3.60-5.00 [facility] Serum or plasma alanine cesar otransferase measurement without P-5'-P (enzymatic activiOrdered By: Stanley Forman on 06-20-2022 ALT No additional P-5'-P [Catalytic activity/Vol] 11 U/L 10-60 [facility] Serum or plasma albumin/glob ulin mass ratioOrdered By: Stanley Forman on 06-20-2022 Albumin/Globulin [Mass ratio] 1.1 {ratio} [facility] Serum or plasma alkaline gina sphatase measurement (enzymatic activity/volume)Ordered By: Stanley Forman on 06-20-2022 ALP [Catalytic activity/Vol] 82 U/L 32-92 [facility] Serum or plasma anion gap de terminationOrdered By: Stanley Forman on 06-20-2022 Anion gap [Moles/Vol] 16.2 mmol/L 6.0-15.0 [facility] Serum or plasma aspartate am inotransferase measurement (enzymatic activity/volume)Ordered By: Stanley Forman on 06-20-2022 AST [Catalytic activity/Vol] 15 U/L 10-42 [facility] Serum or plasma calcium ge urement (mass/volume)Ordered By: Stanley Forman on 06-20-2022 Calcium [Mass/Vol] 9.3 mg/dL 8.2-10.2 [facility] Serum or plasma chloride lee surement (moles/volume)Ordered By: Stanley Forman on 06-20-2022 Chloride [Moles/Vol] 103 mmol/L 95-114 [facility] Serum or plasma glucose ge urement (mass/volume)Ordered By: Stanley Forman on 06-20-2022 Glucose [Mass/Vol] 75 mg/dL 70-100 [facility] Comment on above: ADA recommended refe rence rangeRandom Glucose Reference Range is dependent on time and content of last meal. Glucose of more than 200 mg/dL in a nonstressed, ambulatory subject supports the diagnosis of Diabetes Mellitus. Serum or plasma potassium me asurement (moles/volume)Ordered By: Stanley Forman on 06-20-2022 Potassium [Moles/Vol] 4.3 mmol/L 3.5-5.1 [facility] Serum or plasma sodium measu rement (moles/volume)Ordered By: Stanley Forman on 06-20-2022 Sodium [Moles/Vol] 135 mmol/L 136-146 [facility] Serum or plasma total biliru bin measurement (mass/volume)Ordered By: Stanley Forman on 06-20-2022 Bilirubin [Mass/Vol] 0.3 mg/dL 0.3-1.2 [facility] Serum or plasma total carbon dioxide measurement (moles/volume)Ordered By: Stanley Forman on 06-20-2022 CO2 [Moles/Vol] 20.1 mmol/L 22.0-30.0 [facility] Serum or plasma urea nitroge n measurement (mass/volume)Ordered By: Stanley Forman on 06-20-2022 Urea nitrogen [Mass/Vol] 42 mg/dL 9- [facility] COVID-19 Positive/NegativeOr dered By: Jesus Parham on 06-14-2022 SARS-CoV-2 (COVID-19) N gene AMBERLY+probe Ql (Resp) Negative Negative [facility] Comment on above: Testing for SARS-CoV -2 by RT-PCR This test was developed and its performance characteristics determined by [employer] ([employer]) and validated at the [facility]. This test has not been FDA cleared [...] [employer] ([employer]) and validated at the [facility]. This test has not been FDA cleared [...] 125 10.8 U/mL Normal 0.0-38.1 [facility] Comment on above: Result Comment: [employer] Electrochemiluminescence Immunoassay (ECLIA) . Values obtained with different assay methods or kits cannot be used interchangeably. Results cannot be interpreted as absolute evidence of the presence or absence of malignant disease. Performed By: #### M G, URIC, RENAL #### [facility] [address] [place] [address] Dr. Hari Palmer CEAon 06-08-2022 CEA 0.9 ng/mL Normal 0.0-4.7 [facility] Comment on above: Result Comment: Nons mokers <3.9 Smokers <5.6 . [employer] Electrochemiluminescence Immunoassay (ECLIA) . Values obtained with different assay methods or kits cannot be used interchangeably. Results cannot be interpreted as absolute evidence of the presence or absence of malignant disease. Performed By: #### C EA. #### [facility] [address] [place] [address] Dr. Hari Palmer Basophils Auto (Bld) [#/Vol] Ordered By: Jesus Parham on 06-05-2022 Basophils (Bld) [#/Vol] 0.0 10*3/uL 0.0-0.2 [facility] Basophils/100 WBC Auto (Bld) Ordered By: Jesus Parham on 06-05-2022 Basophils/100 WBC (Bld) 0.3 % . [facility] Blood hemoglobin measurement (mass/volume)Ordered By: Jesus Parham on 06-05-2022 Hemoglobin (Bld) [Mass/Vol] 12.0 g/dL 11.8-15.4 [facility] Blood leukocytes automated c ount (number/volume)Ordered By: Jesus Parham on 06-05-2022 WBC (Bld) [#/Vol] 8.5 10*3/uL 4.5-11.0 [facility] Creatinine and Glomerular fi ltration rate.predicted panel (S/P/Bld)Ordered By: Jesus Parham on 06-05-2022 Creatinine [Mass/Vol] 3.52 mg/dL 0.44-1.03 [facility] Eosinophils Auto (Bld) [#/Vo l]Ordered By: Jesus Parham on 06-05-2022 Eosinophils (Bld) [#/Vol] 0.2 10*3/uL 0.0-0.45 [facility] Eosinophils/100 WBC Auto (Bl d)Ordered By: Jesus Parham on 06-05-2022 Eosinophils/100 WBC (Bld) 2.7 % . [facility] Erythrocyte distribution wid th Auto (RBC) [Ratio]Ordered By: Jesus Parham on 06-05-2022 Erythrocyte distribution width (RBC) [Ratio] 14.2 % 11.9-15.3 [facility] Estimated glomerular filtrat ion rate (GFR) non- AmericanOrdered By: Jesus Parham on 06-05-2022 GFR/1.73 sq M.predicted among non-blacks MDRD (S/P/Bld) [Vol rate/Area] 14 mL/Min [facility] Hematocrit Auto (Bld) [Volum e fraction]Ordered By: Jesus Parham on 06-05-2022 Hematocrit (Bld) [Volume fraction] 35.8 % 34.0-46.4 [facility] Laboratory - Hematology and Cell countsOrdered By: Jesus Parham on 06-05-2022 Nucleated RBC/100 WBC (Bld) [Ratio] 0.1 % 0-0.5 [facility] Lymphocytes Auto (Bld) [#/Vo l]Ordered By: Jesus Parham on 06-05-2022 Lymphocytes (Bld) [#/Vol] 1.6 10*3/uL 1.00-4.8 [facility] Lymphocytes/100 WBC Auto (Bl d)Ordered By: Jesus Parham on 06-05-2022 Lymphocytes/100 WBC (Bld) 19.3 % . [facility] MCH Auto (RBC) [Entitic mass ]Ordered By: Jesus Parham on 06-05-2022 MCH (RBC) [Entitic mass] 31.5 pg 24.7-34.3 [facility] MCHC Auto (RBC) [Mass/Vol]Or dered By: Jesus Parham on 06-05-2022 MCHC (RBC) [Mass/Vol] 33.3 g/dL 32.0-35.0 [facility] MCV Auto (RBC) [Entitic vol] Ordered By: Jesus Parham on 06-05-2022 MCV (RBC) [Entitic vol] 94.4 fL 80-100 [facility] Monocytes Auto (Bld) [#/Vol] Ordered By: Jesus Parham on 06-05-2022 Monocytes (Bld) [#/Vol] 0.3 10*3/uL 0.0-0.8 [facility] Monocytes/100 WBC Auto (Bld) Ordered By: Jesus Parham on 06-05-2022 Monocytes/100 WBC (Bld) 3.9 % . [facility] Neutrophils Auto (Bld) [#/Vo l]Ordered By: Jesus Parham on 06-05-2022 Neutrophils (Bld) [#/Vol] 6.2 10*3/uL 1.8-7.7 [facility] Neutrophils/100 WBC Auto (Bl d)Ordered By: Jesus Parham on 06-05-2022 Neutrophils/100 WBC (Bld) 73.8 % . [facility] No Panel InformationOrdered By: Jesus Parham on 06-05-2022 Estimated GFR () 17 mL/Min [facility] Comment on above: GFR estimated refere nce range: According to KDOQI guidelines, <60 ml/min/1.73m2 is sufficient to diagnose a patient with chronic kidney disease. Pharmacy Creatinine Clearance (Chem N/A [facility] Platelet mean volume Auto (B ld) [Entitic vol]Ordered By: Jesus Parham on 06-05-2022 Platelet mean volume (Bld) [Entitic vol] 7.3 fL 6.3-10.7 [facility] Platelets Auto (Bld) [#/Vol] Ordered By: Jesus Parham on 06-05-2022 Platelets (Bld) [#/Vol] 312 10*3/uL 150-450 [facility] RBC Auto (Bld) [#/Vol]Ordere d By: Jesus Parham on 06-05-2022 RBC (Bld) [#/Vol] 3.80 10*6/uL 3.60-5.00 [facility] Serum or plasma anion gap de terminationOrdered By: Jesus Parham on 06-05-2022 Anion gap [Moles/Vol] 15.1 mmol/L 6.0-15.0 [facility] Serum or plasma calcium ge urement (mass/volume)Ordered By: Jesus Parham on 06-05-2022 Calcium [Mass/Vol] 9.5 mg/dL 8.2-10.2 [facility] Serum or plasma chloride lee surement (moles/volume)Ordered By: Jesus Parham on 06-05-2022 Chloride [Moles/Vol] 106 mmol/L 95-114 [facility] Serum or plasma glucose ge urement (mass/volume)Ordered By: Jesus Parham on 06-05-2022 Glucose [Mass/Vol] 91 mg/dL 70-100 [facility] Comment on above: ADA recommended [...] on 06-05-2022 Potassium [Moles/Vol] 4.4 mmol/L 3.5-5.1 [facility] Serum or plasma sodium measu rement (moles/volume)Ordered By: Jesus Parham on 06-05-2022 Sodium [Moles/Vol] 137 mmol/L 136-146 [facility] Serum or plasma total carbon dioxide measurement (moles/volume)Ordered By: Jesus Parham on 06-05-2022 CO2 [Moles/Vol] 20.3 mmol/L 22.0-30.0 [facility] Serum or plasma urea nitroge n measurement (mass/volume)Ordered By: Jesus Parham on 06-05-2022 Urea nitrogen [Mass/Vol] 38 mg/dL 9-23 [facility] PTH INTACTon 04-29-2022 PTH, Intact 191 pg/mL Critically high 15-65 [facility] Comment on above: Performed By: #### M G, URIC, RENAL #### [facility] [address] [address] [address] Hari Palmer VIT D 25-OH LABCORPon 2021 Vitamin D, 25-Hydroxy 33.6 ng/mL Normal 30.0-100.0 [facility] Comment on above: Result Comment: Ning min D deficiency has been defined by the [place] [employer] and an Endocrine Society practice guideline as a level of serum 25-OH vitamin D less than 20 ng/mL (1,2). The Endocrine Society went on to further define vitamin D insufficiency as a level between 21 and 29 ng/mL (2). 1. IOM ([place] [employer]). 2010. Dietary reference intakes for calcium and D. [place]: The National Academies Press. 2. Chantel MF, Landen [place], Eliseo STEPHENS, et al. Evaluation, treatment, and prevention of vitamin D deficiency: an Endocrine Society clinical practice guideline. JCEM. 2010; 96(7):1911-30. Performed By: #### M G, URIC, RENAL #### [facility] [address] [place] [address] Dr. Hari Palmer ABO AND RH TYPEon 04-27-2022 ABO and Rh group Nom (Bld) ABO Rh Typing O Rh Positive Normal [facility] Comment on above: Performed By: #### M G, URIC, RENAL #### [facility] [address] [place] [address] Dr. Hari Palmre FERRITINon 04-27-2022 Ferritin [Mass/Vol] 273.0 ng/mL Critically high 6.2-137.0 [facility] Comment on above: Performed By: #### M G, URIC, RENAL #### [facility] [address] [place] [address] Dr. Hari Palmer HEMOGRAM AND PLATELon 2021 Hematocrit (Bld) [Volume fraction] 33.9 % Critically low 36.0-48.0 [facility] Comment on above: Performed By: #### M G, URIC, RENAL #### [facility] [address] [place] [address] Dr. Hari Palmer Hemoglobin (Bld) [Mass/Vol] 11.4 g/dL Critically low 12.0-16.0 [facility] Comment on above: Performed By: #### M G, URIC, RENAL #### [facility] [address] [place] [address] Dr. Hari Palmer MCH (RBC) [Entitic mass] 31.7 pg Normal 26.7-34.0 [facility] Comment on above: Performed By: #### M G, URIC, RENAL #### [facility] [address] [place] [address] Dr. Hari Palmer MCHC (RBC) [Mass/Vol] 33.6 g/dL Normal 29.9-35.2 [facility] Comment on above: Performed By: #### M G, URIC, RENAL #### [facility] [address] [place] [address] Dr. Hari Palmer MCV (RBC) [Entitic vol] 94.2 fL Normal 81.0-99.0 [facility] Comment on above: Performed By: #### M G, URIC, RENAL #### [facility] [address] [place] [address] Dr. Hari Palmer PLT 333 103/ul Normal 150-450 [facility] Comment on above: Performed By: #### M G, URIC, RENAL #### [facility] [address] [place] [address] Dr. Hari Palmer RBC 3.60 106/ul Critically low 4.20-5.40 [facility] Comment on above: Performed By: #### M G, URIC, RENAL #### [facility] [address] [place] [address] Dr. Hrai Palmer WBC 9.7 103/ul Normal 4.0-11.0 [facility] Comment on above: Performed By: #### M G, URIC, RENAL #### [facility] [address] [place] [address] Dr. Hari Palmer IRON AND TIBCon 04-27-2022 % SATURATION 20.1 % Normal [facility] Comment on above: Performed By: #### M G, URIC, RENAL #### [facility] [address] [place] [address] Dr. Hari Palmer Iron [Mass/Vol] 57.0 ug/dL Normal 50.0-170.0 [facility] Comment on above: Performed By: #### M G, URIC, RENAL #### [facility] [address] [place] [address] Dr. Hari Palmer TIBC DIRECT 283.0 ug/dL Normal 250.0-450.0 [facility] Comment on above: Performed By: #### M G, URIC, RENAL #### [facility] [address] [place] [address] Dr. Hari Palmer MAGNESIUMon 04-27-2022 Magnesium [Mass/Vol] 2.1 mg/dL Normal 1.8-2.4 [facility] Comment on above: Performed By: #### R ENAL, URIC, MG #### [facility] [address] [place] [address] Dr. Hari Palmer RENAL FUNCTION PANELon 04-27 Albumin [Mass/Vol] 3.6 g/dL Normal 3.4-5.0 [facility] Comment on above: Performed By: #### R ENAL, URIC, MG #### [facility] [address] [address] [address] Hari Palmer Calcium [Mass/Vol] 9.0 mg/dL Normal 8.5-10.1 [facility] Comment on above: Performed By: #### R ENAL, URIC, MG #### [facility] [address] [address] [address] aHri Palmer Chloride [Moles/Vol] 104 mmol/L Normal 98-107 [facility] Comment on above: Performed By: #### R ENAL, URIC, MG #### [facility] [address] [address] [address] Hari Palmer CO2 [Moles/Vol] 23.0 mmol/L Normal 21.0-32.0 [facility] Comment on above: Performed By: #### R ENAL, URIC, MG #### [facility] [address] [address] [address] Hari Palmer Creatinine [Mass/Vol] 3.38 mg/dL Critically high 0.55-1.02 [facility] Comment on above: Performed By: #### R ENAL, URIC, MG #### [facility] [address] [address] [address] Hari Palmer EGFR-AF JAMAICAN 18 mL/min/1.73m2 Critically low >=60 [facility] Comment on above: Performed By: #### R ENAL, URIC, MG #### [facility] [address] [address] [address] Hari Palmer EGFR-NON AF J[place] 15 mL/min/1.73m2 Critically low >=60 [facility] Comment on above: Performed By: #### R ENAL, URIC, MG #### [facility] [address] [address] [address] Hari Palmer Glucose [Mass/Vol] 113 mg/dL Critically high 74-106 [facility] Comment on above: Performed By: #### R ENAL, URIC, MG #### [facility] [address] [place] [address] Dr. Hari Palmer Phosphate [Mass/Vol] 4.4 mg/dL Normal 2.6-4.7 [facility] Comment on above: Performed By: #### R ENAL, URIC, MG #### [facility] [address] [place] [address] Dr. Hari Palmer Potassium [Moles/Vol] 4.0 mmol/L Normal 3.5-5.1 [facility] Comment on above: Performed By: #### R ENAL, URIC, MG #### [facility] [address] [place] [address] Dr. Hari Palmer Sodium [Moles/Vol] 137 mmol/L Normal 136-145 [facility] Comment on above: Performed By: #### R ENAL, URIC, MG #### [facility] [address] [place] [address] Dr. Hari Palmer Urea nitrogen [Mass/Vol] 44.0 mg/dL Critically high 7.0-18.0 [facility] Comment on above: Performed By: #### R ENAL, URIC, MG #### [facility] [address] [place] [address] Dr. Hari Palmer URIC ACID SERUMon 04-27-2022 Urate [Mass/Vol] 6.6 mg/dL Critically high 2.6-6.0 [facility] Comment on above: Performed By: #### R ENAL, URIC, MG #### [facility] [address] [place] [address] Dr. Hari Palmer URINE T PROTEIN CREAT RATIOo n 04-27-2022 Protein (U) [Mass/Vol] 31.4 mg/dL Critically high <=12.0 [facility] Comment on above: Performed By: #### M G, URIC, RENAL #### [facility] [address] [place] [address] Dr. Hari Palmer UR PROT CREAT RAT 0.55 Normal [facility] Comment on above: Performed By: #### M G, URIC, RENAL #### [facility] [address] [place], [place] [address] Dr. Hari Palmer URINE CREAT 57.50 mg/dL Normal 20.00-300.00 [facility] Comment on above: Performed By: #### M G, URIC, RENAL #### [facility] [address] [place], [place] [address] Dr. Hari Palmer ECHOCARDIO M/2D COMPLETEon 0 03-29-2022 ECHOCARDIO M/2D COMPLETE Patient: MANDEEP PURI Exam Date: 03/29/2022 : 1975 Gender:F Ordering : HAIDER FRENCH M.D. Admission #: [id number] Family : Order #: [id number] CLICK HERE TO VIEW EXAM ECHOCARDIOGRAM REPORT [...] Area(A4C): 17.00 cm2 Left Atrium Systolic Volume(A2C): 03164 mm3 Left Atrium Systolic Volume(A4C): 73549 mm3 Mitral Valve MV E to A Ratio: 0.[address] [place]: 3210 mm/s2 Mitral Valve A-Wave Peak Velocity: [...] Alonzo M.D. on 04/01/2022 at 12:33 Normal [facility] COVID-19 SOFIAOrdered By: Mary Beth Jones on 03-28-2022 SARS-CoV+SARS-CoV-2 (COVID-19) Ag IA.rapid Ql (Resp) Negative Negative [facility] Comment on above: This is a duplicate Ada SARS Antigen (GLORIA) result to be used for statistical tracking purpose only. No Panel InformationOrdered By: Shabbir Jones on 03-28-2022 SARS Antigen (LFIA) [facility] BLOOD TYPE AND RHon 02-13-20 ABO INTERPRETATION O Normal [facility] Comment on above: Performed By: #### 3 1397, 94671, 92304, 60894, 99135 #### [facility] [address] RH INTERPRETATION Positive Normal [facility] Comment on above: Performed By: #### 3 1397, 20540, 04455, 18678, 55736 #### [facility] [address] BNP (B-TYPE NATRIURETIC PEPT JOEL)on 02-12-2022 Natriuretic peptide B (Bld) [Mass/Vol] 10 pg/mL Normal 0-100 [facility] Comment on above: Result Comment: Give n the appropriate clinical setting a BNP result of >100 pg/mL indicates congestive heart failure. Performed By: #### 8 5123, 22698 #### [facility] [address] CBC W/DIFFon 02-12-2022 ABS IMM GRANS 0.2 10*3/uL Normal 0.0-0.2 [facility] Comment on above: Performed By: #### 3 1397, 03796, 47163, 70803, 10881 #### [facility] [address] ABS NEUTROPHILS 7.8 10*3/uL High 1.6-7.6 [facility] Comment on above: Performed By: #### 3 1397, 12969, 64361, 56734, 85900 #### [facility] [address] Basophils (Bld) [#/Vol] 0.1 10*3/uL Normal 0.0-0.2 [facility] Comment on above: Performed By: #### 3 1397, 15360, 08438, 20965, 47549 #### [facility] [address] Basophils/100 WBC (Bld) 0.6 % Normal 0.0-1.0 [facility] Comment on above: Performed By: #### 3 1397, 36454, 87190, 36273, 22112 #### [facility] [address] [place] [address], [facility] Eosinophils (Bld) [#/Vol] 0.3 10*3/uL Normal 0.0-0.5 [facility] Comment on above: Performed By: #### 3 1397, 50402, 24692, 11369, 91546 #### [facility] [address] [place] [address], [facility] Eosinophils/100 WBC (Bld) 2.5 % Normal 0.0-6.0 [facility] Comment on above: Performed By: #### 3 1397, 04232, 97651, 35851, 05040 #### [facility] [address] Erythrocyte distribution width (RBC) [Ratio] 13.6 % Normal 11.5-15.0 [facility] Comment on above: Performed By: #### 3 1397, 81219, 83242, 64526, 01253 #### [facility] [address] [place] [address], [facility] Hematocrit (Bld) [Volume fraction] 34.5 % Low 36.0-45.0 [facility] Comment on above: Performed By: #### 3 1397, 66815, 24031, 21178, 90977 #### [facility] [address] [place] [id number], [facility] Hemoglobin (Bld) [Mass/Vol] 11.3 g/dL Low 12.0-15.0 [facility] Comment on above: Performed By: #### 3 1397, 42460, 07589, 99752, 75789 #### [facility] [address] [place] [address], [facility] IMMATURE GRANS 1.4 % High 0.0-1.0 [facility] Comment on above: Performed By: #### 3 1397, 79415, 65217, 15768, 49274 #### [facility] [address] [facility] [place] [address], [facility] Lymphocytes (Bld) [#/Vol] 2.0 10*3/uL Normal 1.2-4.0 [facility] Comment on above: Performed By: #### 3 1397, 90489, 82635, 73944, 88765 #### [facility] [address] [facility] [address] Lymphocytes/100 WBC (Bld) 18.6 % Low 20.0-45.0 [facility] Comment on above: Performed By: #### 3 1397, 42452, 77571, 98686, 16633 #### [facility] [address] [facility] [address] MCH (RBC) [Entitic mass] 31.3 pg Normal 27.0-33.0 [facility] Comment on above: Performed By: #### 3 1397, 65738, 51126, 31210, 00827 #### [facility] [address] [facility] [place] [address], [facility] MCHC (RBC) [Mass/Vol] 32.8 g/dL Normal 32.0-35.0 [facility] Comment on above: Performed By: #### 3 1397, 65763, 45157, 69869, 19440 #### [facility] [address] [facility] [place] [address], [facility] MCV (RBC) [Entitic vol] 95.6 fL Normal 82.0-98.0 [facility] Comment on above: Performed By: #### 3 1397, 27260, 97172, 30984, 19457 #### [facility] [address] [facility] [place] [address], [facility] Monocytes (Bld) [#/Vol] 0.5 10*3/uL Normal 0.1-1.0 [facility] Comment on above: Performed By: #### 3 1397, 54267, 56333, 14647, 75018 #### [facility] [address] [place] [id number], [facility] MONOS 4.9 % Low 5.0-12.0 [facility] Comment on above: Performed By: #### 3 1397, 93995, 35374, 18011, 98912 #### [facility] [address] [place] [address], [facility] Neutrophils/100 WBC (Bld) 72.0 % Normal 40.0-72.0 [facility] Comment on above: Performed By: #### 3 1397, 68602, 56662, 98737, 57072 #### [facility] [address] [place] [id number], [facility] Nucleated RBC/100 WBC (Bld) [Ratio] 0 % Normal 0-0 [facility] Comment on above: Performed By: #### 3 1397, 76247, 02129, 85397, 24643 #### [facility] [address] [facility] [place] [address], [facility] PLAT CNT 315 10*3/uL Normal 150-400 [facility] Comment on above: Performed By: #### 3 1397, 48363, 15355, 41086, 57541 #### [facility] [address] [place] [address], [facility] RBC (Bld) [#/Vol] 3.61 10*6/uL Low 3.80-5.00 [facility] Comment on above: Performed By: #### 3 1397, 86615, 03606, 77676, 33935 #### [facility] [address] [place] [address], [place] WBC (Bld) [#/Vol] 10.78 10*3/uL High 4.00-10.60 [facility] Comment on above: Performed By: #### 3 1397, 19032, 48036, 60917, 17144 #### [address] CHEST AND LATERALon 02-13-20 CHEST AND LATERAL [facility] Department of Radiology [address] [place] [id number] == Patient Name: MANDEEP PURI : [...] evidence of acute cardiopulmonary pathology. Electronically signed: Brenna Chambers. Transcribed by: [email or web address], User Resident: Electronically Signed by: [email or web address] CALIXRAMSES @ 02/13/2022 11:48 AM Normal [facility] CMV IGG BLOODon 02-12-2022 CMV IGG 3.13 Normal [facility] Comment on above: Result Comment: NORM AL RANGES: < OR = 0.9O NEGATIVE ; NO DETECTABLE IgG ANTIBODY TO CMV 0.91 - 1.09 EQUIVOCAL; REPEAT TESTING SUGGESTED > OR = 1.10 POSITIVE ; INDICATES PRESENCE OF DETECTABLE IgG ANTIBODY TO CMV Performed By: #### 3 1397, 54958, 82932, 51950, 58282 #### [facility] [address] [place] [address], [facility] COMP METABOLIC PANELon 02-12 Albumin [Mass/Vol] 4.5 g/dL Normal 3.5-5.7 [facility] Comment on above: Performed By: #### 2 2505, 42345, 68822 #### [facility] [address] [place] [address], [place] ALKALINE PHOSPH 89 IU/L Normal 34-104 [facility] Comment on above: Performed By: #### 2 2505, 16352, 21793 #### [facility] [address] [place] [address], [place] ALT [Catalytic activity/Vol] 12 U/L Normal 7-52 [facility] Comment on above: Performed By: #### 2 2505, 21727, 37585 #### [facility] [address] [place] [address], [place] AST [Catalytic activity/Vol] 13 U/L Normal 13-39 [facility] Comment on above: Performed By: #### 2 2505, 33039, 27306 #### [facility] [address] [place] [address], [place] Bilirubin [Mass/Vol] 0.3 mg/dL Normal 0.3-1.0 [facility] Comment on above: Performed By: #### 2 2505, 31077, 85539 #### [facility] [address] [place] [address], [place] Calcium [Mass/Vol] 9.5 mg/dL Normal 8.6-10.3 [facility] Comment on above: Performed By: #### 2 2505, 32683, 37552 #### [facility] [address] [place] [address], [place] Chloride [Moles/Vol] 103 mmol/L Normal 98-107 [facility] Comment on above: Performed By: #### 2 2505, 64925, 51314 #### [facility] [address] [place] [address], [place] CO2 [Moles/Vol] 22 mmol/L Normal 21-31 [facility] Comment on above: Performed By: #### 2 2505, 62815, 16217 #### [facility] [address] [place] [address], [place] Creatinine [Mass/Vol] 3.51 mg/dL High 0.60-1.20 [facility] Comment on above: Performed By: #### 2 2505, 87839, 78698 #### [facility] [address] [place] [address], [place] eGFR- 17 ml/min/1.73sq m Abnormal >60 [facility] Comment on above: Performed By: #### 2 2505, 69357, 52956 #### [facility] [address] [place] [address], [place] eGFR- non- 14 ml/min/1.73sq m Abnormal >60 [facility] Comment on above: Performed By: #### 2 2505, 02400, 96995 #### [facility] [address] [place] [address], [place] Glucose [Mass/Vol] 100 mg/dL Normal 70-100 [facility] Comment on above: Performed By: #### 2 2505, 58572, 38696 #### [facility] [address] [place] [address], [place] Potassium [Moles/Vol] 3.9 mmol/L Normal 3.5-5.1 [facility] Comment on above: Performed By: #### 2 2505, 35772, 25665 #### [facility] [address] [place] [address], [place] Protein [Mass/Vol] 8.0 g/dL Normal 6.0-8.3 [facility] Comment on above: Performed By: #### 2 2505, 58699, 51310 #### [facility] [address] [place] [address], [place] Sodium [Moles/Vol] 136 mmol/L Normal 136-145 [facility] Comment on above: Performed By: #### 2 2505, 12749, 86306 #### [facility] [address] [place] [address], [place] Urea nitrogen [Mass/Vol] 41 mg/dL High 7-25 [facility] Comment on above: Performed By: #### 2 2505, 99182, 61640 #### [facility] [address] [place] [address], [place] CREATININE URINE RANDOMon Creatinine (U) [Mass/Vol] 63.0 mg/dL Normal [facility] Comment on above: Result Comment: Ther e are no established reference values for random urine specimens Performed By: #### 3 1397, 05954, 64386, 23574, 01017 #### [facility] [address] [place] [address], [place] RENAL RECIPIENT ABDOMEN A ND PEVLIS WO CONTRASTon 02-12-2022 CT RENAL RECIPIENT ABDOMEN AND PEVLIS WO CONTRAST [facility] Department of Radiology [address] [place] [address] == Patient Name: MANDEEP PURI [...] achievable. Electronically signed: NAN SARAVIA. Transcribed by: [email or web address], User Resident: Electronically Signed by: NAN SARAVIA @ 02/12/2022 02:59 PM Normal [facility] Comment on above: Order Comment: [...] Bilirubin.direct [Mass/Vol] 0.0 mg/dL Normal 0.0-0.2 [facility] Comment on above: Performed By: #### 2 2505, 27954, 54310 #### [facility] [address] BRETT LAGUERRE VIRUS ABon 05-1 EB VCA IGG 2.35 Normal [facility] Comment on above: Order Comment: CONSI STENT WITH PAST EBV INFECTION Result Comment: NORM AL RANGES: < OR = 0.9O NEGATIVE ; NO DETECTABLE IgG ANTIBODY TO EBV-VCA 0.91 - 1.09 EQUIVOCAL; REPEAT TESTING SUGGESTED > OR = 1.10 POSITIVE ; INDICATES PRESENCE OF DETECTABLE IgG ANTIBODY TO EBV Performed By: #### 3 1397, 77773, 53818, 03009, 81599 #### [facility] [address] EB VCA IGM 0.00 Normal [facility] Comment on above: Order Comment: CONSI STENT WITH PAST EBV INFECTION Result Comment: NORM AL RANGES: < OR = 0.9O NEGATIVE ; NO SIGNIFICANT LEVEL OF DETECTABLE EBV-VCA IgM AB 0.91 - 1.09 EQUIVOCAL; REPEAT TESTING SUGGESTED > OR = 1.10 POSITIVE ; SIGNIFICANT LEVEL OF DETECTABLE EBV-VCA IgM AB Performed By: #### 3 1397, 67119, 07896, 55575, 46841 #### [facility] [address] HEMOGLOBIN A1Con 02-12-2022 Glucose [Moles/Vol] 120 mmol/L Normal [facility] Comment on above: Performed By: #### 8 0403, 89627 #### [facility] [address] HbA1c (Bld) [Mass fraction] 5.8 % Normal 4.0-6.0 [facility] Comment on above: Performed By: #### 8 2703, 33768 #### [facility] [address] [place] [address], [facility] HEPATITIS A ANTIBODY IGMon 0 02-12-2022 HEP A AB IGM Non-Reactive Normal NONREACTIVE [facility] Comment on above: Performed By: #### 3 1397, 66343, 85055, 18651, 71769 #### [facility] [address] [facility] [place] [address], [facility] HEPATITIS B CORE ANTIBODYon 02-12-2022 HEP B CORE AB Non-Reactive Normal NONREACTIVE [facility] Comment on above: Performed By: #### 3 1397, 19803, 95901, 78910, 22905 #### [facility] [address] [facility] [place] [address], [facility] HEPATITIS B SURFACE ANTIBODY QUANTon 02-12-2022 HEP B SURF AB 1.14 mIU/ml Normal [facility] Comment on above: Result Comment: INTE RPRETATION: NONREACTIVE<8.00 mIU/mL INDETERMINATE8.00 - 12.00 mIU/mL REACTIVE>12 mIU/mL Performed By: #### 3 1397, 74763, 98852, 49238, 08035 #### [facility] [address] [place] [address], [facility] HEPATITIS B SURFACE ANTIGEN QUALon 02-12-2022 HEP B SURF AG QUAL Non-Reactive Normal NONREACTIVE [facility] Comment on above: Performed By: #### 3 1397, 32674, 64680, 99709, 93690 #### [facility] [address] [facility] [place] [address], [facility] HEPATITIS C ANTIBODYon 02-12 ANTI-HCV Non-Reactive Normal NONREACTIVE [facility] Comment on above: Performed By: #### 3 1397, 36898, 37263, 33212, 56498 #### [facility] [address] [place] [address], [facility] HIV1 AND 2 COMBO 4Gon 2021 HIV COMBO Negative Normal NEGATIVE [facility] Comment on above: Performed By: #### 3 1397, 36130, 26464, 15522, 71687 #### [facility] [address] HLA ABC CLASS I TYPINGon A*-1 EQUIVALENT 1 Normal [facility] Comment on above: Order Comment: [...] to frequency. Performed By: #### 3 1397, 51484, 23710, 03252, 85433 #### [facility] [address] [place] [address], [facility] A*-2 EQUIVALENT 2 Normal [facility] Comment on above: Order Comment: [...] to frequency. Performed By: #### 3 1397, 33665, 34692, 66048, 66620 #### [facility] [address] [place] [address], [facility] B*-1 EQUIVALENT 35 Normal [facility] Comment on above: Order Comment: [...] to frequency. Performed By: #### 3 1397, 22894, 31734, 46897, 88803 #### [facility] [address] [place] [address], [facility] B*-2 EQUIVALENT 37 Normal [facility] Comment on above: Order Comment: [...] to frequency. Performed By: #### 3 1397, 23288, 55884, 68878, 61077 #### [facility] [address] [place] [address], [facility] Bw*-1 EQUIVALENT 4 Normal [facility] Comment on above: Order Comment: [...] to frequency. Performed By: #### 3 1397, 23607, 82627, 17788, 72705 #### [facility] [address] [facility] [place] [address], [facility] Bw*-2 EQUIVALENT 6 Normal [facility] Comment on above: Order Comment: [...] to frequency. Performed By: #### 3 1397, 64751, 41785, 02544, 35282 #### [facility] [address] [facility] [place] [address], [facility] C*-1 EQUIVALENT 4 Normal [facility] Comment on above: Order Comment: [...] to frequency. Performed By: #### 3 1397, 24557, 26382, 86304, 15392 #### [facility] [address] [place] [address], [facility] C*-2 EQUIVALENT 6 Normal [facility] Comment on above: Order Comment: [...] to frequency. Performed By: #### 3 1397, 44212, 23199, 17280, 73843 #### [facility] [address] [place] [address], [facility] METHOD Class I Typing by PCR-SSOP Luminex Normal [facility] Comment on above: Order Comment: [...] to frequency. Performed By: #### 3 1397, 94538, 94494, 18040, 64516 #### [facility] [address] [facility]. [address] SIGNED BY Normal [facility] Comment on above: Order Comment: Some [...] to frequency. Result Comment: Sree Noriega, MS,CHT(DONA),MT(ASCP) Dimensional Inspector, Transplant Immunology Performed By: #### 3 1397, 78100, 02300, 96871, 34972 #### [facility] [address] [facility] [address] CLASS II TYPINGon DPB1*-1 EQUIVALENT 04:01 Normal [facility] Comment on above: Order Comment: Some [...] to frequency. Performed By: #### 3 1397, 99065, 47505, 09166, 01770 #### [facility] [address] [place] [address], [facility] DPB1*-2 EQUIVALENT 04:02 Normal [facility] Comment on above: Order Comment: [...] to frequency. Performed By: #### 3 1397, 08587, 66639, 89340, 13188 #### [facility] [address] [place] [address], [facility] DQA1*-1 EQUIVALENT 01 Normal [facility] Comment on above: Order Comment: [...] to frequency. Performed By: #### 3 1397, 99829, 72032, 25616, 13588 #### [facility] [address] [place] [address], [place] DQA1*-2 EQUIVALENT 05 Normal [facility] Comment on above: Order Comment: [...] to frequency. Performed By: #### 3 1397, 78170, 67102, 10243, 26947 #### [facility] [address] [facility] [place] [address], [place] DQB1*-1 EQUIVALENT 7 Normal [facility] Comment on above: Order Comment: [...] to frequency. Performed By: #### 3 1397, 85064, 22627, 95416, 08477 #### [facility] [address] [place] [address], [facility] DQB1*-2 EQUIVALENT 5 Normal [facility] Comment on above: Order Comment: Some [...] to frequency. Performed By: #### 3 1397, 40402, 62208, 46329, 46646 #### [facility] [address] [facility] [address], [facility] DRB1*-1 EQUIVALENT 10 Normal [facility] Comment on above: Order Comment: [...] to frequency. Performed By: #### 3 1397, 73886, 68930, 37897, 69019 #### [facility] [address] [facility] [place] [address], [facility] DRB1*-2 EQUIVALENT 11 Normal [facility] Comment on above: Order Comment: [...] to frequency. Performed By: #### 3 1397, 56759, 25266, 73308, 40549 #### [facility] [address] [facility]. [address] DRB3*-1 EQUIVALENT 52 Normal [facility] Comment on above: Order Comment: [...] to frequency. Performed By: #### 3 1397, 91175, 81795, 58752, 54270 #### [facility] [address] [facility]. [address] METHOD Class II Typing by PCR-SSOP Luminex Normal [facility] Comment on above: Order Comment: [...] to frequency. Performed By: #### 3 1397, 00041, 57193, 56684, 73214 #### [facility] [address] [facility]. [address] LIPID PROFILEon 02-12-2022 Cholesterol [Mass/Vol] 221 mg/dL High 120-200 [facility] Comment on above: Result Comment: CHOL ESTEROL REFERENCE RANGE: 20 YEARS AND OLDER CARDIOVASCULAR RISK Less than 200 mg/dl Low Risk 200 to 239 mg/dl Borderline Risk 240 mg/dl and greater High Risk Performed By: #### 3 1397, 95048, 68524, 45247, 61944 #### [facility] [address] [place] [address], [facility] Cholesterol in HDL [Mass/Vol] 40 mg/dL Normal 23-92 [facility] Comment on above: Result Comment: Slig ht variation in normal range could be due to gender and/or age. HDL CHOLESTEROL REFERENCE RANGE: 20 years and older Cardiovascular Risk > or =60 mg/dL Desirable 40 TO 59 mg/dL Low Risk <40 mg/dL High Risk Performed By: #### 3 1397, 52196, 40220, 84583, 26723 #### [facility] [address] [place] [address], [facility] Cholesterol in LDL [Mass/Vol] 101 mg/dL Normal 0-130 [facility] Comment on above: Result Comment: LDL IS A CALCULATION LDL IS ONLY VALID IF THE TRIG IS LESS THAN 400. Performed By: #### 3 1397, 13331, 54391, 81323, 03865 #### [facility] [address] [place] [address], [facility] Cholesterol.total/Patt sterol in HDL [Mass ratio] 5.5 {ratio} High .0-4.5 [facility] Comment on above: Performed By: #### 3 1397, 58713, 16353, 40613, 24290 #### [facility] [address] [place] [address], [facility] NON-HDL CHOLESTEROL 181 mg/dL Normal [facility] Comment on above: Performed By: #### 3 1397, 65645, 85214, 38338, 30559 #### [facility] [address] [place] [id number], [facility] Triglyceride [Mass/Vol] 402 mg/dL High 40-149 [facility] Comment on above: Result Comment: TRIG LYCERIDE REFERENCE RANGE: 20 YEARS AND OLDER CARDIOVASCULAR RISK LESS THAN 150 mg/dl LOW RISK 150 TO 199 mg/dl BORDERLINE RISK 200 mg/dl AND GREATER HIGH RISK Performed By: #### 3 1397, 42774, 64429, 54362, 01324 #### [facility] [address] [place] [address], [facility] VLDL CHOL 80 mg/dL High 0-40 [facility] Comment on above: Performed By: #### 3 1397, 54071, 52659, 13525, 57527 #### [facility] [address] [place] [address], [facility] MUMPS IGG BLDon 02-12-2022 MUMPS IGG 5.46 Normal [facility] Comment on above: Result Comment: NORM AL RANGES: < OR = 0.9O NEGATIVE ; NO DETECTABLE IgG ANTIBODY TO MUMPS 0.91 - 1.09 EQUIVOCAL; REPEAT TESTING SUGGESTED > OR = 1.10 POSITIVE ; INDICATES PRESENCE OF DETECTABLE IgG ANTIBODY TO MUMPS Performed By: #### 3 1397, 52705, 44473, 14097, 87543 #### [facility] [address] [place] [address], [facility] RUBELLAon 02-12-2022 RUBELLA 4.79 Normal [facility] Comment on above: Result Comment: NORM AL RANGES: < OR = 0.9O NEGATIVE ; NO DETECTABLE IgG ANTIBODY TO RUBELLA 0.91 - 1.09 EQUIVOCAL; REPEAT TESTING SUGGESTED > OR = 1.10 POSITIVE ; INDICATES PRESENCE OF DETECTABLE IgG ANTIBODY TO RUBELLA VIRUS Performed By: #### 3 1397, 86764, 07262, 13637, 85590 #### [facility] [address] [place] [address], [facility] RUBEOLA MEASLES IGGon 2021 RUBEO IGG 6.43 Normal [facility] Comment on above: Result Comment: NORM AL RANGES: < OR = 0.9O NEGATIVE ; NO DETECTABLE IgG ANTIBODY TO RUBEOLA 0.91 - 1.09 EQUIVOCAL; REPEAT TESTING SUGGESTED > OR = 1.10 POSITIVE ; INDICATES PRESENCE OF DETECTABLE IgG ANTIBODY TO RUBEOLA Performed By: #### 3 1397, 18122, 11326, 77512, 82159 #### [facility] [address] [facility] [address], [facility] SINGLE ANTIGEN CLASS 1on METHOD Class I Single Antigen Normal [facility] Comment on above: Order Comment: [...] to frequency. Performed By: #### 3 1397, 42838, 12212, 52337, 18900 #### [facility] [address] SINGLE ANTIGEN CLASS 2on COMMENTS Normal [facility] Comment on above: Order Comment: [...] watch list. Performed By: #### 3 1397, 44220, 36524, 04256, 33069 #### [facility] [address] Result Comment: Clas s I Antigen Microbeads Potential specificites added to the watch list. CPRA 0 Normal [facility] Comment on above: Order Comment: [...] to frequency. Performed By: #### 3 1397, 65865, 52896, 69627, 90049 #### [facility] [address] [facility] [address] METHOD Class II Single Antigen Normal [facility] Comment on above: Order Comment: [...] to frequency. Performed By: #### 3 1397, 30542, 67147, 41741, 89364 #### [facility] [address] T PROT UR Yesy 02-12-2022 U TOTAL PROTEIN 44.0 mg/dL Normal [facility] Comment on above: Result Comment: Ther e are no established reference values for random urine specimens Performed By: #### 3 1397, 49979, 98196, 31705, 39052 #### [facility] [address] TB QUANTIFERON PLUSon 2021 MITOGEN MINUS NIL >10.00 Normal [facility] Comment on above: Performed By: #### 3 1592 #### [facility] [address] [facility]. [address] NIL 0.03 IU/mL Normal [facility] Comment on above: Performed By: #### 3 1592 #### [facility] [address] [facility]. [address] TB QUANTIFERON Negative Normal NEGATIVE [facility] Comment on above: Result Comment: Jadiel tiferon TB Gold Interpretation (IU/mL): NEGATIVE: M. tuberculosis infection not likely. Nil: <=8.0 TB1 Antigen minus Nil ([id number]): <0.35 OR >=0.35; and <25% of Nil value. TB2 Antigen minus Nil ([id number]): <0.35 OR >=0.35; and <25% of Nil [...] By: #### 3 1592 #### [facility] [address] [place] [address], [facility] TB1 AG 0.05 IU/mL Normal [facility] Comment on above: Performed By: #### 3 1592 #### [facility] [address] [place] [address], [facility] TB1 AG MINUS NIL 0.02 IU/mL Normal [facility] Comment on above: Performed By: #### 3 1592 #### [facility] [address] [place] [address], [facility] TB2 AG 0.05 IU/mL Normal [facility] Comment on above: Performed By: #### 3 1592 #### [facility] [address] [place] [address], [facility] TB2 AG MINUS NIL 0.02 IU/mL Normal [facility] Comment on above: Performed By: #### 3 1592 #### [facility] [address] [place] [address], [facility] UA,MICROSCOPIC REQUIREDon Appearance (U) SL CLOUDY Abnormal CLEAR [facility] Comment on above: Performed By: #### 3 1397, 60773, 98322, 05685, 16469 #### [facility] [address] [place] [address], [facility] Bilirubin Ql (U) Negative Normal NEGATIVE [facility] Comment on above: Performed By: #### 3 1397, 49112, 28080, 26062, 89569 #### [facility] [address] [place] [address], [facility] Color (U) STRAW Abnormal YELLOW [facility] Comment on above: Performed By: #### 3 1397, 19914, 30103, 47848, 76617 #### [facility] [address] [place] [address], [facility] EPIS MANY Abnormal FEW,OCC,NONE SEEN [facility] Comment on above: Performed By: #### 3 1397, 97062, 70099, 63573, 50237 #### [facility] [address] [facility] [place] [address], [facility] Glucose Ql (U) 50 mg/dL Abnormal NEGATIVE [facility] Comment on above: Performed By: #### 3 1397, 64143, 25463, 29204, 93934 #### [facility] [address] [facility] [place] [address], [facility] Hemoglobin Ql (U) Negative Normal NEGATIVE [facility] Comment on above: Performed By: #### 3 1397, 33734, 44899, 85176, 52375 #### [facility] [address] [facility] [place] [address], [facility] KETONE Negative Normal NEGATIVE [facility] Comment on above: Performed By: #### 3 1397, 06681, 56542, 61625, 86565 #### [facility] [address] [place] [address], [facility] LEUK MARYAN MODERATE Abnormal NEGATIVE [facility] Comment on above: Performed By: #### 3 1397, 17228, 19238, 39819, 16640 #### [facility] [address] [facility] [place] [address], [facility] Nitrite Ql (U) Negative Normal NEGATIVE [facility] Comment on above: Performed By: #### 3 1397, 97871, 09075, 21741, 34087 #### [facility] [address] [facility]. [address] pH (U) 7.0 [pH] Normal 5.0-8.0 [facility] Comment on above: Performed By: #### 3 1397, 29678, 79920, 12555, 82599 #### [facility] [address] [facility]. [address] Protein Ql (U) 30 mg/dL Abnormal NEGATIVE [facility] Comment on above: Performed By: #### 3 1397, 56336, 65643, 22056, 50670 #### [facility] [address] RBC NONE SEEN Normal NONE SEEN [facility] Comment on above: Performed By: #### 3 1397, 64296, 97894, 72160, 01314 #### [facility] [address] SPEC GRAV 1.009 Low 1.015-1.020 [facility] Comment on above: Performed By: #### 3 1397, 67599, 84495, 33549, 71661 #### [facility] [address] WBC UA 11-20 Abnormal NONE SEEN [facility] Comment on above: Performed By: #### 3 1397, 49393, 26083, 26500, 79402 #### [facility] [address] VARICELLA ZOSTER IGGon 02-12 VARICELLA IGG 3.29 Normal [facility] Comment on above: Result Comment: NORM AL RANGES: < OR = 0.9O NEGATIVE ; NO DETECTABLE IgG ANTIBODY TO VARICELLA-ZOSTER VIRUS 0.91 - 1.09 EQUIVOCAL; REPEAT TESTING SUGGESTED > OR = 1.10 POSITIVE ; INDICATES PRESENCE OF DETECTABLE IgG ANTIBODY TO VARICELLA-ZOSTER VIRUS Performed By: #### 3 1397, 86891, 58363, 56925, 83807 #### [facility] [address] PTH INTACTon 12-04-2021 PTH, Intact 165 pg/mL Critically high 15-65 [facility] Comment on above: Performed By: #### M G, URIC, RENAL #### [facility] [address] [place] [address] Dr. Hari Palmer FERRITINon 12-03-2021 Ferritin [Mass/Vol] 256.0 ng/mL Critically high 6.2-137.0 [facility] Comment on above: Performed By: #### M G, URIC, RENAL #### [facility] [address] [place] [address] Dr. Hari Palmer HEMOGRAM AND PLATELon 2021 Hematocrit (Bld) [Volume fraction] 33.7 % Critically low 36.0-48.0 [facility] Comment on above: Performed By: #### M G URIC, RENAL #### [facility] [address] [place] [address] Dr. Hari Palmer Hemoglobin (Bld) [Mass/Vol] 10.9 g/dL Critically low 12.0-16.0 [facility] Comment on above: Performed By: #### M G, URIC, RENAL #### [facility] [address] [place] [address] Dr. Hari Palmer MCH (RBC) [Entitic mass] 31.4 pg Normal 26.7-34.0 [facility] Comment on above: Performed By: #### M G, URIC, RENAL #### [facility] [address] [place] [address] Dr. Hari Palmer MCHC (RBC) [Mass/Vol] 32.3 g/dL Normal 29.9-35.2 [facility] Comment on above: Performed By: #### M G, URIC, RENAL #### [facility] [address] [place] [address] Dr. Hari Palmer MCV (RBC) [Entitic vol] 97.1 fL Normal 81.0-99.0 [facility] Comment on above: Performed By: #### M G, URIC, RENAL #### [facility] [address] [place] [address] Dr. Hari Palmer PLT 314 103/ul Normal 150-450 [facility] Comment on above: Performed By: #### M Edy, URIC, RENAL #### [facility] [address] [place] [address] Dr. Hari Palmer RBC 3.47 106/ul Critically low 4.20-5.40 [facility] Comment on above: Performed By: #### M Edy, URIC, RENAL #### [facility] [address] [place] [address] Dr. Hari Palmer WBC 9.4 103/ul Normal 4.0-11.0 [facility] Comment on above: Performed By: #### M Edy, URIC, RENAL #### [facility] [address] [place] [address] Dr. Hari Palmer IRON AND TIBCon 12-03-2021 % SATURATION 19.0 % Normal [facility] Comment on above: Performed By: #### Xiomara Snow URIC, RENAL #### [facility] [address] [place] [address] Dr. Hari Palmer Iron [Mass/Vol] 52.0 ug/dL Normal 37.0-170.0 [facility] Comment on above: Performed By: #### M Edy, URIC, RENAL #### [facility] [address] [place] [address] Dr. Hari Palmer TIBC DIRECT 273.0 ug/dL Normal 261.0-497.0 [facility] Comment on above: Performed By: #### M Edy, URIC, RENAL #### [facility] [address] [place] [address] Dr. Hari Palmer MAGNESIUMon 12-03-2021 Magnesium [Mass/Vol] 2.1 mg/dL Normal 1.6-2.3 [facility] Comment on above: Performed By: #### M Edy, URIC, RENAL #### [facility] [address] [place] [address] Dr. Hari Palmer RENAL FUNCTION PANELon 12-03 Albumin [Mass/Vol] 3.6 g/dL Normal 3.5-5.0 [facility] Comment on above: Performed By: #### M G, URIC, RENAL #### [facility] [address] [place] [address] Dr. Hari Palmer Calcium [Mass/Vol] 8.4 mg/dL Normal 8.4-10.2 [facility] Comment on above: Performed By: #### M G, URIC, RENAL #### [facility] [address] [place] [address] Dr. Hari Palmer Chloride [Moles/Vol] 101 mmol/L Normal 98-107 [facility] Comment on above: Performed By: #### M G, URIC, RENAL #### [facility] [address] [place] [address] Dr. Hari Palmer CO2 [Moles/Vol] 24.3 mmol/L Normal 22.0-30.0 [facility] Comment on above: Performed By: #### M G, URIC, RENAL #### [facility] [address] [place] [address] Dr. Hari Palmer Creatinine [Mass/Vol] 3.32 mg/dL Critically high 0.52-1.04 [facility] Comment on above: Performed By: #### M G, URIC, RENAL #### [facility] [address] [place] [address] Dr. Hari Palmer EGFR-AF JAMAICAN 18 mL/min/1.73m2 Critically low >=60 [facility] Comment on above: Performed By: #### M G, URIC, RENAL #### [facility] [address] [place] [address] Dr. Hari Palmer EGFR-NON AF J[place] 15 mL/min/1.73m2 Critically low >=60 [facility] Comment on above: Performed By: #### M G, URIC, RENAL #### [facility] [address] [place] [address] Dr. Hari Palmer Glucose [Mass/Vol] 119 mg/dL Critically high 74-106 [facility] Comment on above: Performed By: #### M G, URIC, RENAL #### [facility] [address] [place] [address] Dr. Hari Palmer Phosphate [Mass/Vol] 4.7 mg/dL Critically high 2.5-4.5 [facility] Comment on above: Performed By: #### M G, URIC, RENAL #### [facility] [address] [place] [address] Dr. Hari Palmer Potassium [Moles/Vol] 4.0 mmol/L Normal 3.4-5.0 [facility] Comment on above: Performed By: #### M G, URIC, RENAL #### [facility] [address] [place] [address] Dr. Hari Palmer Sodium [Moles/Vol] 135 mmol/L Critically low 137-145 [facility] Comment on above: Performed By: #### M Edy, URIC, RENAL #### [facility] [address] [place] [address] Dr. Hari Palmer Urea nitrogen [Mass/Vol] 42.0 mg/dL Critically high 7.0-17.0 [facility] Comment on above: Performed By: #### M Edy, URIC, RENAL #### [facility] [address] [place] [address] Dr. Hari Palmer UA RANDOM W/MICROSCOPICon BACTERIA TRACE Abnormal NONE SEEN [facility] Comment on above: Performed By: #### U AMIC #### [facility] [address] [place] [address] Dr. Hari Palmer Bilirubin Ql (U) Negative Normal NEGATIVE [facility] Comment on above: Performed By: #### U AMIC #### [facility] [address] [place] [address] Dr. Hari Palmer CAST NONE SEEN Normal NONE SEEN [facility] Comment on above: Performed By: #### U AMIC #### [facility] [address] [place] [address] Dr. Hari Palmer Clarity (U) CLEAR Normal CLEAR [facility] Comment on above: Performed By: #### U AMIC #### [facility] [address] [place] [address] Dr. Hari Palmer Color (U) LT. YELLOW Normal YELLOW [facility] Comment on above: Performed By: #### U AMIC #### [facility] [address] [place] [address] [address] Hari Palmer Crystals LM Nom (Urine sed) NONE SEEN Normal NONE SEEN [facility] Comment on above: Performed By: #### U AMIC #### [facility] [address] [place] [address] [address] Hari Palmer Epithelial cells LM Ql (Urine sed) FEW Abnormal NONE SEEN /RARE [facility] Comment on above: Performed By: #### U AMIC #### [facility] [address] [place] [address] [address] Hari Palmer Glucose Ql (U) 100 mg/dl Abnormal NEGATIVE [facility] Comment on above: Performed By: #### U AMIC #### [facility] [address] [place] [address] Dr. Hari Palmer Hemoglobin Ql (U) TRACE-INTACT Abnormal NEGATIVE [facility] Comment on above: Performed By: #### U AMIC #### [facility] [address] [place] [address] [address] Hair Palmer Ketones Ql (U) Negative Normal NEGATIVE [facility] Comment on above: Performed By: #### U AMIC #### [facility] [address] [place] [address] [address] Hari Palmer LEUKOCYTES SMALL Abnormal NEGATIVE [facility] Comment on above: Performed By: #### U AMIC #### [facility] [address] [place] [address] [address] Hari Palmer MUCOUS NONE SEEN Normal NONE SEEN [facility] Comment on above: Performed By: #### U AMIC #### [facility] [address] [place] [address] Dr. Hari Palmer Nitrite Ql (U) Negative Normal NEGATIVE [facility] Comment on above: Performed By: #### U AMIC #### [facility] [address] [place] [address] Dr. Hari Palmer pH (U) 6.0 [pH] Normal 5-9 [facility] Comment on above: Performed By: #### U AMIC #### [facility] [address] [place] [address] Dr. Hari Palmer RBC 0-2 Normal 0-2 [facility] Comment on above: Performed By: #### U AMIC #### [facility] [address] [place] [address] Dr. Hari Palmer SPEC GRAVITY 1.010 Normal 1.005-<=1.02 5 [facility] Comment on above: Performed By: #### U AMIC #### [facility] [address] [place] [address] Dr. Hari Palmer UA PROTEIN Negative Normal NEGATIVE/ TRACE [facility] Comment on above: Performed By: #### U AMIC #### [facility] [address] [place] [address] Dr. Hari Palmer Urobilinogen Qn (U) 0.2 {Janice'U}/dL Normal 0.2 - 1. 0 [facility] Comment on above: Performed By: #### U AMIC #### [facility] [address] [place] [address] Dr. Hari Palmer WBC 5-10 Abnormal NONE SEEN [facility] Comment on above: Performed By: #### U AMIC #### [facility] [address] [place] [address] Dr. Hari Palmer URIC ACID SERUMon 12-03-2021 Urate [Mass/Vol] 4.6 mg/dL Normal 2.5-6.2 [facility] Comment on above: Performed By: #### M G, URIC, RENAL #### [facility] [address] [place] [address] Dr. Hari Palmer URINE T PROTEIN CREAT RATIOo n 12-03-2021 Protein (U) [Mass/Vol] 31.7 mg/dL Critically high <=12.0 [facility] Comment on above: Performed By: #### M G, URIC, RENAL #### [facility] [address] [place] [address] Dr. Hari Palmer UR PROT CREAT RAT 0.54 Normal [facility] Comment on above: Performed By: #### M G, URIC, RENAL #### [facility] [address] [place] [address] Dr. Hari Palmer URINE CREAT 59.03 mg/dL Normal 20.00-300.00 [facility] Comment on above: Performed By: #### M G, URIC, RENAL #### [facility] [address] [place] [address] Dr. Hari Palmer VITAMIN D 25 OHon 12-03-2021 VIT D 25-OH 38.1 ng/mL Normal [facility] Comment on above: Performed By: #### M G, URIC, RENAL #### [facility] [address] [place] [address] Dr. Hari Palmer VIT D RANGES SEE BELOW Normal [facility] Comment on above: Result Comment: <20 ng/mL Vit D deficient 20 - <30 ng/mL Vit D insufficient 30 - 100 ng/mL Vit D sufficient >100 ng/mL Potential Toxicity Performed By: #### M G, URIC, RENAL #### [facility] [address] [place] [address] Dr. Hari Palmer PTH INTACTon 09-03-2021 PTH, Intact 177 pg/mL Critically high 15-65 [facility] Comment on above: Performed By: #### P THINT #### [facility] [address] [place] [address] Dr. Hari Palmer CBC AUTO DIFFon 09-01-2021 BASO # 0.1 103/ul Normal 0.0-0.1 [facility] Comment on above: Performed By: #### M G, URIC, RENAL #### [facility] [address] [place] [address] Dr. Hari Palmer Basophils/100 WBC (Bld) 0.6 % Normal 0.2-2.0 [facility] Comment on above: Performed By: #### M G, URIC, RENAL #### [facility] [address] [place] [address] Dr. Hari Palmer EO # 0.3 103/ul Normal 0.0-0.7 [facility] Comment on above: Performed By: #### M G, URIC, RENAL #### [facility] [address] [address] [address] Hari Palmer Eosinophils/100 WBC (Bld) 3.5 % Normal 0.9-7.0 [facility] Comment on above: Performed By: #### M G, URIC, RENAL #### [facility] [address] [place] [address] Dr. Hari Palmer Erythrocyte distribution width (RBC) [Ratio] 13.8 % Normal 11.0-15.0 [facility] Comment on above: Performed By: #### M G, URIC, RENAL #### [facility] [address] [place] [address] Dr. Hari Palmer Hematocrit (Bld) [Volume fraction] 32.8 % Critically low 36.0-48.0 [facility] Comment on above: Performed By: #### M G, URIC, RENAL #### [facility] [address] [place] [address] Dr. Hari Palmer Hemoglobin (Bld) [Mass/Vol] 10.6 g/dL Critically low 12.0-16.0 [facility] Comment on above: Performed By: #### M G, URIC, RENAL #### [facility] [address] [place] [address] Dr. Hari Palmer IG # 0.14 10e3/ul Critically high 0.00-0.03 [facility] Comment on above: Performed By: #### M G, URIC, RENAL #### [facility] [address] [place] [address] Dr. Hari Palmer IG % 1.5 % Critically high 0.0-0.5 [facility] Comment on above: Performed By: #### M G, URIC, RENAL #### [facility] [address] [place] [address] Dr. Hari Palmer LYMPH # 1.8 103/ul Normal 1.2-3.8 [facility] Comment on above: Performed By: #### M G, URIC, RENAL #### [facility] [address] [place] [address] Dr. Hari Palmer Lymphocytes/100 WBC (Bld) 19.3 % Critically low 20.5-60.0 [facility] Comment on above: Performed By: #### M G, URIC, RENAL #### [facility] [address] [place] [address] Dr. Hari Palmer MANUAL DIFF REQ NO Normal [facility] Comment on above: Performed By: #### M G, URIC, RENAL #### [facility] [address] [place] [address] Dr. Hari Palmer MCH (RBC) [Entitic mass] 31.4 pg Normal 26.7-34.0 [facility] Comment on above: Performed By: #### M G, URIC, RENAL #### [facility] [address] [place] [address] Dr. Hari Palmer MCHC (RBC) [Mass/Vol] 32.3 g/dL Normal 29.9-35.2 [facility] Comment on above: Performed By: #### M G, URIC, RENAL #### [facility] [address] [place] [address] Dr. Hari Palmer MCV (RBC) [Entitic vol] 97.0 fL Normal 81.0-99.0 [facility] Comment on above: Performed By: #### M G, URIC, RENAL #### [facility] [address] [place] [address] Dr. Hari Palmer MONO # 0.4 103/ul Normal 0.3-0.8 [facility] Comment on above: Performed By: #### M G, URIC, RENAL #### [facility] [address] [place] [address] Dr. Hari Palmer Monocytes/100 WBC (Bld) 4.2 % Normal 1.7-12.0 [facility] Comment on above: Performed By: #### M G, URIC, RENAL #### [facility] [address] [place] [address] Dr. Hari Palmer NEUT # 6.5 103/ul Normal 1.4-6.5 [facility] Comment on above: Performed By: #### M G, URIC, RENAL #### [facility] [address] [place] [address] Dr. Hari Palmer Neutrophils/100 WBC (Bld) 70.9 % Normal 43.0-75.0 [facility] Comment on above: Performed By: #### M Edy URIC, RENAL #### [facility] [address] [place] [address] Dr. Hari Palmer Platelet mean volume (Bld) [Entitic vol] 9.0 fL Critically low 9.5-13.5 [facility] Comment on above: Performed By: #### Xiomara Snow URIC, RENAL #### [facility] [address] [place] [address] Dr. Hari Palmer PLT 289 103/ul Normal 150-450 [facility] Comment on above: Performed By: #### JUDIE Traore, RENAL #### [facility] [address] [place] [address] Dr. Hari Palmer RBC 3.38 106/ul Critically low 4.20-5.40 [facility] Comment on above: Performed By: #### Xiomara Snow URIC, RENAL #### [facility] [address] [place] [address] Dr. Hari Palmer WBC 9.1 103/ul Normal 4.0-11.0 [facility] Comment on above: Performed By: #### Xiomara Snow URIC, RENAL #### [facility] [address] [place] [address] Dr. Hari Palmer FERRITINon 09-01-2021 Ferritin [Mass/Vol] 204.0 ng/mL Critically high 6.2-137.0 [facility] Comment on above: Performed By: #### Xiomara Snow URIC, RENAL #### [facility] [address] [place] [address] Dr. Hari Palmer IRON AND TIBCon 09-01-2021 % SATURATION 28.4 % Normal [facility] Comment on above: Performed By: #### M Edy URIC, RENAL #### [facility] [address] [place] [address] Dr. Hari Palmer Iron [Mass/Vol] 80.0 ug/dL Normal 37.0-170.0 [facility] Comment on above: Performed By: #### M Edy URIC, RENAL #### [facility] [address] [address] [address] Hari Palmer TIBC DIRECT 282.0 ug/dL Normal 261.0-497.0 [facility] Comment on above: Performed By: #### M G, URIC, RENAL #### [facility] [address] [address] [address] Hari Palmer MAGNESIUMon 09-01-2021 Magnesium [Mass/Vol] 2.2 mg/dL Normal 1.6-2.3 [facility] Comment on above: Performed By: #### U AMIC #### [facility] [address] [place] [address] Dr. Hari Palmer RENAL FUNCTION PANELon 09-01 Albumin [Mass/Vol] 3.5 g/dL Normal 3.5-5.0 [facility] Comment on above: Performed By: #### M G, URIC, RENAL #### [facility] [address] [place] [address] Dr. Hari Palmer Calcium [Mass/Vol] 8.7 mg/dL Normal 8.4-10.2 [facility] Comment on above: Performed By: #### M G, URIC, RENAL #### [facility] [address] [place] [address] Dr. Hari Palmer Chloride [Moles/Vol] 105 mmol/L Normal 98-107 [facility] Comment on above: Performed By: #### M G, URIC, RENAL #### [facility] [address] [address] [address] Hari Palmer CO2 [Moles/Vol] 21.1 mmol/L Critically low 22.0-30.0 [facility] Comment on above: Performed By: #### M G, URIC, RENAL #### [facility] [address] [place] [address] Dr. Hari Palmer Creatinine [Mass/Vol] 3.63 mg/dL Critically high 0.52-1.04 [facility] Comment on above: Performed By: #### M G, URIC, RENAL #### [facility] [address] [place] [address] Dr. Hari Palmer EGFR-AF JAMAICAN 16 mL/min/1.73m2 Critically low >=60 [facility] Comment on above: Performed By: #### M G, URIC, RENAL #### [facility] [address] [address] [address] Hari Palmer EGFR-NON AF JAMAICAN 14 mL/min/1.73m2 Critically low >=60 [facility] Comment on above: Performed By: #### M G, URIC, RENAL #### [facility] [address] [address] [address] Hari Palmer Glucose [Mass/Vol] 115 mg/dL Critically high 74-106 [facility] Comment on above: Performed By: #### M Edy, URIC, RENAL #### [facility] [address] [place] [address] Dr. Hari Palmer Phosphate [Mass/Vol] 4.6 mg/dL Critically high 2.5-4.5 [facility] Comment on above: Performed By: #### M G, URIC, RENAL #### [facility] [address] [address] [address] Hari Palmer Potassium [Moles/Vol] 4.2 mmol/L Normal 3.4-5.0 [facility] Comment on above: Performed By: #### M G, URIC, RENAL #### [facility] [address] [address] [address] Hari Palmer Sodium [Moles/Vol] 138 mmol/L Normal 137-145 [facility] Comment on above: Performed By: #### M G, URIC, RENAL #### [facility] [address] [address] [address] Hari Palmer Urea nitrogen [Mass/Vol] 50.0 mg/dL Critically high 7.0-17.0 [facility] Comment on above: Performed By: #### M G, URIC, RENAL #### [facility] [address] [address] [address] Hari Palmer UA RANDOM W/MICROSCOPICon BACTERIA SMALL Abnormal NONE SEEN [facility] Comment on above: Performed By: #### U AMIC #### [facility] [address] [address] [address] Hari Palmer Bilirubin Ql (U) Negative Normal NEGATIVE [facility] Comment on above: Performed By: #### U AMIC #### [facility] [address] [address] [address] Hari Palmer CAST NONE SEEN Normal NONE SEEN [facility] Comment on above: Performed By: #### U AMIC #### [facility] [address] [address] [address] Hari Palmer Clarity (U) CLEAR Normal CLEAR [facility] Comment on above: Performed By: #### U AMIC #### [facility] [address] [place] [address] Dr. Hari Palmer Color (U) LT. YELLOW Normal YELLOW [facility] Comment on above: Performed By: #### U AMIC #### [facility] [address] [place] [address] Dr. Hari Palmer Crystals LM Nom (Urine sed) NONE SEEN Normal NONE SEEN [facility] Comment on above: Performed By: #### U AMIC #### [facility] [address] [address] [address] Hari Palmer Epithelial cells LM Ql (Urine sed) MODERATE Abnormal NONE SEEN /RARE [facility] Comment on above: Performed By: #### U AMIC #### [facility] [address] [place] [address] Dr. Hari Palmer Glucose Ql (U) Negative Normal NEGATIVE [facility] Comment on above: Performed By: #### U AMIC #### [facility] [address] [place] [address] Dr. Hari Palmer Hemoglobin Ql (U) TRACE-INTACT Abnormal NEGATIVE [facility] Comment on above: Performed By: #### U AMIC #### [facility] [address] [place] [address] Dr. Hari Palmer Ketones Ql (U) Negative Normal NEGATIVE [facility] Comment on above: Performed By: #### U AMIC #### [facility] [address] [place] [address] Dr. Hari Palmer LEUKOCYTES Negative Normal NEGATIVE [facility] Comment on above: Performed By: #### U AMIC #### [facility] [address] [place] [address] Dr. Hari Palmer MUCOUS NONE SEEN Normal NONE SEEN [facility] Comment on above: Performed By: #### U AMIC #### [facility] [address] [place] [address] Dr. Hari Palmer Nitrite Ql (U) Negative Normal NEGATIVE [facility] Comment on above: Performed By: #### U AMIC #### [facility] [address] [place] [address] Dr. Hari Palmer pH (U) 6.0 [pH] Normal 5-9 [facility] Comment on above: Performed By: #### U AMIC #### [facility] [address] [place] [address] Dr. Hari Palmer RBC 2-5 Abnormal 0-2 [facility] Comment on above: Performed By: #### U AMIC #### [facility] [address] [place] [address] Dr. Hari Palmer SPEC GRAVITY 1.010 Normal 1.005-<=1.02 5 [facility] Comment on above: Performed By: #### U AMIC #### [facility] [address] [place] [address] Dr. Hari Palmer UA PROTEIN Negative Normal NEGATIVE/ TRACE [facility] Comment on above: Performed By: #### U AMIC #### [facility] [address] [place] [address] Dr. Hari Palmer Urobilinogen Qn (U) 0.2 {Janice'U}/dL Normal 0.2 - 1. 0 [facility] Comment on above: Performed By: #### U AMIC #### [facility] [address] [place] [address] Dr. Hari Palmer WBC 2-5 Abnormal NONE SEEN [facility] Comment on above: Performed By: #### U AMIC #### [facility] [address] [place] [address] Dr. Hari Palmer URIC ACID SERUMon 09-01-2021 Urate [Mass/Vol] 4.9 mg/dL Normal 2.5-6.2 [facility] Comment on above: Performed By: #### U AMIC #### [facility] [address] [place] [address] Dr. Hari Palmer URINE T PROTEIN CREAT RATIOo n 09-01-2021 Protein (U) [Mass/Vol] 22.2 mg/dL Critically high <=12.0 [facility] Comment on above: Performed By: #### M G, URIC, RENAL #### [facility] [address] [place] [address] Dr. Hari Palmer UR PROT CREAT RAT 0.47 Normal [facility] Comment on above: Performed By: #### M G, URIC, RENAL #### [facility] [address] [place] [address] Dr. Hari Palmer URINE CREAT 46.89 mg/dL Normal 20.00-300.00 [facility] Comment on above: Performed By: #### M G, URIC, RENAL #### [facility] [address] [place] [address] Dr. Hari Palmer VITAMIN D 25 OHon 09-01-2021 VIT D 25-OH 40.5 ng/mL Normal [facility] Comment on above: Performed By: #### M G, URIC, RENAL #### [facility] [address] [place] [address] Dr. Hari Palmer VIT D RANGES SEE BELOW Normal [facility] Comment on above: Result Comment: <20 ng/mL Vit D deficient 20 - <30 ng/mL Vit D insufficient 30 - 100 ng/mL Vit D sufficient >100 ng/mL Potential Toxicity Performed By: #### M G, URIC, RENAL #### [facility] [address] [place] [address] Dr. Hari Palmer CNOVon 03-30-2021 CNOV Office Visit (NEPHMN ) -------- MANDEEP PURI ([id number]) 1975 F Date Time Provider Department 03/30/21 9:20 AM PERRI BARRETT NEPHMN During your visit today, we recorded the following information about you: Temperature Pulse Blood pressure Weight 98.2 degrees 75/minute 122/77 93 kg Height 1.549 m Perri Barrett MD 03/30/2021 10:25 AM Signed Mrs. 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 (more content not included)... Normal [facility] Urinalysison 03-30-2021 Bilirubin, Urine Negative Normal Negative [facility] Comment on above: Performed By: #### U A #### [facility] [employer] [address] [place], [place] [address] Clarity (U) Clear Normal Clear [facility] Comment on above: Performed By: #### U A #### [facility] [employer] [address] [place], [place] [address] Color (U) Colorless Critically abnormal Yellow [facility] Comment on above: Performed By: #### U A #### [facility] [address] [place], [place] [address] Comments SEE COMMENT Normal [facility] Comment on above: Result Comment: Micr oscopic not warranted Performed By: #### U A #### [facility] [address] [place], [place] [address] Glucose Ql (U) Trace Critically abnormal Negative [facility] Comment on above: Performed By: #### U A #### [facility] [address] [address] Hemoglobin/Blood,Ur Negative Normal Negative [facility] Comment on above: Performed By: #### U A #### [address] [address] Ketones Ql (U) Negative Normal Negative [facility] Comment on above: Performed By: #### U A #### [address] [address] Leukest Negative Normal Negative [facility] Comment on above: Performed By: #### U A #### [facility] [address] [place], [place] [address] Nitrite Ql (U) Negative Normal Negative [facility] Comment on above: Performed By: #### U A #### [address] [id number] pH (U) 6.5 [pH] Normal 5.0-8.0 [facility] Comment on above: Performed By: #### U A #### [facility] [address] [place], [place] [address] Protein, Urine Negative Normal Negative [facility] Comment on above: Performed By: #### U A #### [address] [place], [place] [address] Specific [place], Ur 1.008 Normal 1.005-1.030 [facility] Comment on above: Performed By: #### U A #### [facility] [employer] [address] [place], [place] [address] Urine Codi Comment SEE COMMENT Normal [facility] Comment on above: Result Comment: N/A Performed By: #### U A #### [facility] [employer] [address] [place], [place] [address] Urobilinogen (U) [Mass/Vol] Negative Normal Negative [facility] Comment on above: Performed By: #### U A #### [facility] [address] [id number] Coding Summary.on 04-21-2020 Coding Summary. CODING DATE: 020 [facility] STATUS: Home (Routine DC) PAYOR: Medical Milo ADMIT DX: REASON FOR VISIT DX: Z20.828 [...] CphT Date Saved: 04/21/2020 05:17 pm Normal [facility] Physician Orderon 04-21-2020 Physician Order [id number]: 127 Normal [facility] Marci 04-12-2020 ALT [Catalytic activity/Vol] 14 U/L Normal 7 - 45 [facility] Comment on above: Result Comment: Kelsea ents treated with Sulfasalazine may generate falsely decreased results for ALT. Performed By: #### A LT #### [facility] [address] [place] [address] Ronald 04-12-2020 AST [Catalytic activity/Vol] 16 U/L Normal 9 - 39 [facility] Comment on above: Performed By: #### A ST #### [facility] [address] [place] [address] CREATININEon 04-12-2020 Creatinine [Mass/Vol] 2.83 mg/dL High 0.50 - 1.05 [facility] Comment on above: Performed By: #### C REAT #### [facility] [address] [place] [address] Creatinine [Mass/Vol] 18 mL/min/1.73m2 Abnormal >60 [facility] Comment on above: Performed By: #### C REAT #### [facility] [address] [place] [address] Creatinine [Mass/Vol] 22 mL/min/1.73m2 Abnormal >60 [facility] Comment on above: Result Comment: CALC ULATIONS OF ESTIMATED GFR ARE PERFORMED USING THE MDRD STUDY EQUATION FOR THE IDMS-TRACEABLE CREATININE METHODS. CLIN CHEM 2007;53:766-72 Performed By: #### C REAT #### [facility] [address] [place] [address] URIC ACIDon 04-12-2020 Urate [Mass/Vol] 5.2 mg/dL Normal 2.3 - 6.7 [facility] Comment on above: Result Comment: Beti puncture immediately after or during the administration of Metamizole may lead to falsely low results. Testing should be performed immediately prior to Metamizole dosing. Performed By: #### U DASHAWN #### [facility] [address] [place] [address] URIC ACIDon 02-11-2020 Urate [Mass/Vol] 8.2 mg/dL High 2.3 - 6.7 [facility] Comment on above: Result Comment: Beti puncture immediately after or during the administration of Metamizole may lead to falsely low results. Testing should be performed immediately prior to Metamizole dosing. Performed By: #### U DASHAWN #### [facility] [address] [place] [address] Cult,Urineon 08-04-2019 Cult,Urine Specimen Description .CLEAN CATCH URINE Special Requests NOT REPORTED Culture ESCHERICHIA COLI >[id number] CFU/ML Report Status FINAL 08/04/2019 SUSCEPTIBILITY Organism [...] SUSCEPTIBLE Piperacillin/Tazobactam <=4 SUSCEPTIBLE Normal [facility] Comment on above: Performed By: #### D CITLALY, LIP, CMPX, TROPI, BNP, CDP, PT #### [facility] [address] [place], [place] [id number] [employer] Associate: Sami Dominguez MD Brain Natri. Peptideon 08-02 Natriuretic peptide B (Bld) [Mass/Vol] 152 pg/mL Normal <300 [facility] Comment on above: Result Comment: Pro- BNP results cannot be compared to BNP results. Performed By: #### D CITLALY, LIP, CMPX, TROPI, BNP, CDP, PT #### [facility] [address] [place], [place] [id number] [employer] Associate: Sami Dominguez MD Natriuretic peptide B (Bld) [Mass/Vol] Pro-BNP Reference Range: Normal [facility] Comment on above: Result Comment: Rule Out: <300 Parra Zone: Age <50 300-450 Age 50-75 300-900 Age >75 300-1800 Usually represents mild to moderate HF but other cardiopulmonary causes cannot be ruled out. Rule In: Age <50 >450 Age 50-75 >900 Age >75 >1800 Performed By: #### D CITLALY, LIP, CMPX, TROPI, BNP, CDP, PT #### [facility] [address] [place], [place] [id number] Lodge Sales Associate: Sami Dominguez MD Brain Natriuretic Peptideon 08-02-2019 Natriuretic peptide B (Bld) [Mass/Vol] 152 pg/mL <300 [place] Comment on above: Pro-BNP results eric ot be compared to BNP results. Natriuretic peptide B (Bld) [Mass/Vol] Pro-BNP Reference Range: [place] Comment on above: Rule Out: <300 [place]ra Zone: Age <50 300-450 Age 50-75 300-900 Age >75 300-1800 Usually represents mild to moderate HF but other cardiopulmonary causes cannot be ruled out. Rule In: Age <50 >450 Age 50-75 >900 Age >75 >1800 CBC Auto Differentialon 07-07 Basophils (Bld) [#/Vol] 0.00 10*3/uL [place] Basophils/100 WBC (Bld) 0 % 0 - 2 % M [place] Differential Type NOT REPORTED [place] Eosinophils (Bld) [#/Vol] 0.08 10*3/uL [place] Eosinophils/100 WBC (Bld) 1 % 1 - 4 % [place] Erythrocyte distribution width (RBC) [Ratio] 13.2 % 11.8 - 14.4 % [place] Hematocrit (Bld) [Volume fraction] 33.7 % Low 36.3 - 47.1 % [place] Hemoglobin (Bld) [Mass/Vol] 10.7 g/dL Low 11.9 - 15.1 g/dL [place] Immature granulocytes (Bld) [#/Vol] 0 % 0 [place] Immature granulocytes (Bld) [#/Vol] 0.00 10*3/uL [place] Interpretation and review of laboratory results Abnormal [place] Lymphocytes (Bld) [#/Vol] 0.90 10*3/uL [place] Lymphocytes/100 WBC (Bld) 12 % Low 24 - 43 % [place] MCH (RBC) [Entitic mass] 30.2 pg 25.2 - 33.5 pg [place] MCHC (RBC) [Mass/Vol] 31.8 g/dL 28.4 - 34.8 g/dL [place] MCV (RBC) [Entitic vol] 95.2 fL 82.6 - 102.9 fL [place] Monocytes (Bld) [#/Vol] 0.00 10*3/uL [place] Monocytes/100 WBC (Bld) 0 % Low 3 - 12 % [place] Morphology Geovany (Bld) [Interp] Normal [place] Platelet mean volume (Bld) [Entitic vol] 8.6 fL 8.1 - 13.5 fL [place] Platelets (Bld) [#/Vol] NOT REPORTED [place] Platelets (Bld) [#/Vol] 335 10*3/uL [place] RBC (Bld) [#/Vol] 3.54 10*6/uL Low 3.95 - 5.1 1 m/uL [place] RBC morphology finding Nom (Bld) NOT REPORTED [place] Segmented neutrophils/100 WBC (Bld) 87 % High 36 - 65 % [place] Segs Absolute 6.52 [place] WBC (Bld) [#/Vol] 7.5 10*3/uL [place] WBC (Bld) [#/Vol] 0.0 10*3/uL 0.0 per 10 0 WBC [place] WBC Morphology NOT REPORTED [place] CBC with Diffon 08-02-2019 Abs. Basophil 0.00 k/uL Normal 0.0-0.2 [facility] Comment on above: Performed By: #### D CITLALY, LIP, CMPX, TROPI, BNP, CDP, PT #### [facility] [address] [place] [address] Lodge Sales Associate: Sami Dominguez MD Abs.Imm.Granulocyte 0.00 k/uL Normal 0.00-0.30 [facility] Comment on above: Performed By: #### D CITLALY, LIP, CMPX, TROPI, BNP, CDP, PT #### [facility] [address] [place] [address] Lodge Sales Associate: Sami Dominguez MD Abs.Neutrophil (Seg) 6.52 k/uL Normal 1.50-8.10 [facility] Comment on above: Performed By: #### D CITLALY, LIP, CMPX, TROPI, BNP, CDP, PT #### [facility] [address] [place] [phone] Lodge Sales Associate: Sami Dominguez MD Basophils/100 WBC (Bld) 0 % Normal 0-2 [facility] Comment on above: Performed By: #### D CITLALY, LIP, CMPX, TROPI, BNP, CDP, PT #### [facility] [address] [place] [phone] Lodge Sales Associate: Sami Dominguez MD Eosinophils (Bld) [#/Vol] 0.08 10*3/uL Normal 0.00-0.44 [facility] Comment on above: Performed By: #### D CITLLAY, LIP, CMPX, TROPI, BNP, CDP, PT #### [facility] [address] [place], [place] [address] Lodge Sales Associate: Sami Dominguez MD Eosinophils/100 WBC (Bld) 1 % Normal 1-4 [facility] Comment on above: Performed By: #### D CITLALY, LIP, CMPX, TROPI, BNP, CDP, PT #### [address] [place], [place] [address] Lodge Sales Associate: Sami Dominguez MD Immature granulocytes (Bld) [#/Vol] 0 % Normal 0 [facility] Comment on above: Performed By: #### D CITLALY, LIP, CMPX, TROPI, BNP, CDP, PT #### [facility] [address] [place] [address] Lodge Sales Associate: Sami Dominguez MD Lymphocytes (Bld) [#/Vol] 0.90 10*3/uL Low 1.10-3.70 [facility] Comment on above: Performed By: #### D CITLALY, LIP, CMPX, TROPI, BNP, CDP, PT #### [facility] [address] [place], [place] [phone] Lodge Sales Associate: Sami Dominguez MD Lymphocytes/100 WBC (Bld) 12 % Low 24-43 [facility] Comment on above: Performed By: #### D CITLALY, LIP, CMPX, TROPI, BNP, CDP, PT #### [facility] [address] [place], [place] [phone] Lodge Sales Associate: Sami Dominguez MD Monocytes (Bld) [#/Vol] 0.00 10*3/uL Low 0.10-1.20 [facility] Comment on above: Performed By: #### D CITLALY, LIP, CMPX, TROPI, BNP, CDP, PT #### [facility] [address] [place], [place] [phone] Lodge Sales Associate: Sami Dominguez MD Monocytes/100 WBC (Bld) 0 % Low 3-12 [facility] Comment on above: Performed By: #### D CITLALY, LIP, CMPX, TROPI, BNP, CDP, PT #### [facility] [address] [place], [place] [phone] Lodge Sales Associate: Sami Dominguez MD Morphology Geovany (Bld) [Interp] Normal Normal [facility] Comment on above: Performed By: #### D CITLALY, LIP, CMPX, TROPI, BNP, CDP, PT #### [facility] [address] [place], [place] [phone] Lodge Sales Associate: Sami Dominguez MD Neutrophil (Seg) 87 % High 36-65 [facility] Comment on above: Performed By: #### D CITLALY, LIP, CMPX, TROPI, BNP, CDP, PT #### [facility] [address] [place], [place] [phone] Lodge Sales Associate: Sami Dominguez MD Erythrocyte distribution width (RBC) [Ratio] 13.2 % Normal 11.8-14.4 [facility] Comment on above: Performed By: #### D CITLALY, LIP, CMPX, TROPI, BNP, CDP, PT #### [address] [place], [facility] Lodge Sales Associate: Sami Dominguez MD Hematocrit (Bld) [Volume fraction] 33.7 % Low 36.3-47.1 [facility] Comment on above: Performed By: #### D CITLALY, LIP, CMPX, TROPI, BNP, CDP, PT #### [address] [place], [facility] Lodge Sales Associate: Sami Dominguez MD Hemoglobin (Bld) [Mass/Vol] 10.7 g/dL Low 11.9-15.1 [facility] Comment on above: Performed By: #### D CITLALY, LIP, CMPX, TROPI, BNP, CDP, PT #### [address] [place], [facility] Lodge Sales Associate: Sami Dominguez MD MCH (RBC) [Entitic mass] 30.2 pg Normal 25.2-33.5 [facility] Comment on above: Performed By: #### D CITLALY, LIP, CMPX, TROPI, BNP, CDP, PT #### [address] [place], [facility] Lodge Sales Associate: Sami Dominguez MD MCHC (RBC) [Mass/Vol] 31.8 g/dL Normal 28.4-34.8 [facility] Comment on above: Performed By: #### D CITLALY, LIP, CMPX, TROPI, BNP, CDP, PT #### [address] [place], [facility] Lodge Sales Associate: Sami Dominguez MD MCV (RBC) [Entitic vol] 95.2 fL Normal 82.6-102.9 [facility] Comment on above: Performed By: #### D CITLALY, LIP, CMPX, TROPI, BNP, CDP, PT #### [facility] [address] [place], [facility] Lodge Sales Associate: Sami Dominguez MD NRBC Automated 0.0 per 100 WBC Normal 0.0 [facility] Comment on above: Performed By: #### D CITLALY, LIP, CMPX, TROPI, BNP, CDP, PT #### [facility] [address] [place], [facility] Lodge Sales Associate: Sami Dominguez MD Platelet mean volume (Bld) [Entitic vol] 8.6 fL Normal 8.1-13.5 [facility] Comment on above: Performed By: #### D CITLALY, LIP, CMPX, TROPI, BNP, CDP, PT #### [facility] [address] [place], [facility] Lodge Sales Associate: Sami Dominguez MD Platelets (Bld) [#/Vol] 335 10*3/uL Normal 138-453 [facility] Comment on above: Performed By: #### D CITLALY, LIP, CMPX, TROPI, BNP, CDP, PT #### [facility] [address] [place], [facility] Lodge Sales Associate: Sami Dominguez MD RBC (Bld) [#/Vol] 3.54 10*6/uL Low 3.95-5.11 [facility] Comment on above: Performed By: #### D CITLALY, LIP, CMPX, TROPI, BNP, CDP, PT #### [facility] [address] [place], [facility] Lodge Sales Associate: Sami Dominguez MD WBC (Bld) [#/Vol] 7.5 10*3/uL Normal 3.5-11.3 [facility] Comment on above: Performed By: #### D CITLALY, LIP, CMPX, TROPI, BNP, CDP, PT #### [facility] [address] [place], [facility] Lodge Sales Associate: Sami Dominguez MD Auto Diff Performed NOT REPORTED Normal [facility] Comment on above: Performed By: #### D CITLALY, LIP, CMPX, TROPI, BNP, CDP, PT #### [facility] [address] [place], [place] [phone] Lodge Sales Associate: Sami Dominguez MD Platelets (Bld) [#/Vol] NOT REPORTED Normal [facility] Comment on above: Performed By: #### D CITLALY, LIP, CMPX, TROPI, BNP, CDP, PT #### [facility] [address] [place], [place] [phone] Lodge Sales Associate: Sami Dominguez MD RBC morphology finding Nom (Bld) NOT REPORTED Normal [facility] Comment on above: Performed By: #### D CITLALY, LIP, CMPX, TROPI, BNP, CDP, PT #### [address] [place], [facility] Lodge Sales Associate: Sami Dominguez MD WBC Morphology NOT REPORTED Normal [facility] Comment on above: Performed By: #### D CITLALY, LIP, CMPX, TROPI, BNP, CDP, PT #### [address] [place] [id number] Lodge Sales Associate: Sami Dominguez MD CTA CHEST ABDOMEN PELVIS W C [facility] 08-02-2019 CTA CHEST ABDOMEN PELVIS W [...] MD 08/02/19 Final result Normal [facility] Moshe, Mhpn Incoming Radiant Results From [employer] - 08/02/2019 1:21 PM EDT EXAMINATION: CTA [...] recommended. Reference: J Am Danika Radiol 2013;10:675-681 [place] EXAMINATION: CTA OF THE CHEST, ABDOMEN [...] and caliber without aneurysmal dilatation or dissection. [place] No evidence for aneurysmal dilatation or dissection of the aorta or its branches. Findings most compatible with polycystic kidney disease. Subtle inflammation adjacent to the descending colon is suggestive of subtle colitis. No perforation or abscess formation. No free intraperitoneal air or fluid. 4.1 cm benign appearing ovarian cyst No follow-up imaging is recommended. Reference: J Am Danika Radiol 2013;10:675-681 [place] Comp Metabolic Pr/rfx MGon 1 (cont.) Normal [facility] Comment on above: Result Comment: Aver age GFR for 40-49 years old: 99 mL/min/1.73sq m Chronic Kidney Disease: <60 mL/min/1.73sq m Kidney failure: <15 mL/min/1.73sq m eGFR calculated using average adult body mass. Additional eGFR calculator available at: http://www.Kontron.com/multiple_crcl_2012.htm Performed By: #### D CITLALY, LIP, CMPX, TROPI, BNP, CDP, PT #### [facility] [address] [place] [address] Lodge Sales Associate: Sami Dominguez MD Albumin [Mass/Vol] 4.4 g/dL Normal 3.5-5.2 [facility] Comment on above: Performed By: #### D CITLALY, LIP, CMPX, TROPI, BNP, CDP, PT #### [facility] [address] [place], [place] [id number] Lodge Sales Associate: Sami Dominguez MD Albumin/Globulin [Mass ratio] 1.0 {ratio} Normal 1.0-2.5 [facility] Comment on above: Performed By: #### D CITLALY, LIP, CMPX, TROPI, BNP, CDP, PT #### [facility] [address] [place], [place] [phone] Lodge Sales Associate: Sami Dominguez MD Alkaline Phos 98 U/L Normal 35-104 [facility] Comment on above: Performed By: #### D CITLALY, LIP, CMPX, TROPI, BNP, CDP, PT #### [facility] [address] [place], [place] [phone] Lodge Sales Associate: Sami Dominguez MD ALT [Catalytic activity/Vol] 16 U/L Normal 5-33 [facility] Comment on above: Performed By: #### D CITLALY, LIP, CMPX, TROPI, BNP, CDP, PT #### [facility] [address] [place], [place] [phone] Lodge Sales Associate: Sami Dominguez MD Anion gap [Moles/Vol] 18 mmol/L High 9-17 [facility] Comment on above: Performed By: #### D CITLALY, LIP, CMPX, TROPI, BNP, CDP, PT #### [facility] [address] [place], [place] [phone] Lodge Sales Associate: Sami Dominguez MD AST [Catalytic activity/Vol] 18 U/L Normal <32 [facility] Comment on above: Performed By: #### D CITLALY, LIP, CMPX, TROPI, BNP, CDP, PT #### [facility] [address] [place], [place] [id number] Lodge Sales Associate: Sami Dominguez MD Bilirubin Ql (U) 0.31 mg/dL Normal 0.3-1.2 [facility] Comment on above: Performed By: #### D CITLALY, LIP, CMPX, TROPI, BNP, CDP, PT #### [facility] [address] [place], [place] [phone] Lodge Sales Associate: Sami Dominguez MD BUN/CRE Ratio 13 Normal 9-20 [facility] Comment on above: Performed By: #### D CITLALY, LIP, CMPX, TROPI, BNP, CDP, PT #### [facility] [address] [place] [address] Lodge Sales Associate: Sami Dominguez MD Calcium [Mass/Vol] 9.7 mg/dL Normal 8.6-10.4 [facility] Comment on above: Performed By: #### D CITLALY, LIP, CMPX, TROPI, BNP, CDP, PT #### [facility] [address] [place] [address] Dr[place], [place] [phone] Lodge Sales Associate: Sami Dominguez MD Chloride [Moles/Vol] 95 mmol/L Low 98-107 [facility] Comment on above: Performed By: #### D CITLALY, LIP, CMPX, TROPI, BNP, CDP, PT #### [facility] [address] [place] [address] Dr[place], [place] [phone] Lodge Sales Associate: Sami Dominguez MD CO2 [Moles/Vol] 18 mmol/L Low 20-31 [facility] Comment on above: Performed By: #### D CITLALY, LIP, CMPX, TROPI, BNP, CDP, PT #### [facility] [address] [place] [address] [place] [address] Lodge Sales Associate: Sami Dominguez MD Creatinine [Mass/Vol] 3.07 mg/dL High 0.50-0.90 [facility] Comment on above: Performed By: #### D CITLALY, LIP, CMPX, TROPI, BNP, CDP, PT #### [facility] [address] [place] [address] Lodge Sales Associate: Sami Dominguez MD GFR, Amer 20 mL/min Low >60 [facility] Comment on above: Performed By: #### D CITLALY, LIP, CMPX, TROPI, BNP, CDP, PT #### [facility] [address] [place] [address] Lodge Sales Associate: Sami Dominguez MD GFR,non Amer 17 mL/min Low >60 [facility] Comment on above: Performed By: #### D CITLALY, LIP, CMPX, TROPI, BNP, CDP, PT #### [facility] [address] [place] [address] Lodge Sales Associate: Sami Dominguez MD Glucose [Mass/Vol] 89 mg/dL Normal 70-99 [facility] Comment on above: Performed By: #### D CITLALY, LIP, CMPX, TROPI, BNP, CDP, PT #### [address] [place] [address] Lodge Sales Associate: Sami Dominguez MD Potassium [Moles/Vol] 3.9 mmol/L Normal 3.7-5.3 [facility] Comment on above: Performed By: #### D CITLALY, LIP, CMPX, TROPI, BNP, CDP, PT #### [facility] [address] [place] [address] Lodge Sales Associate: Sami Dominguez MD Protein [Mass/Vol] 8.8 g/dL High 6.4-8.3 [facility] Comment on above: Performed By: #### D CITLALY, LIP, CMPX, TROPI, BNP, CDP, PT #### [facility] [address] [place] [address] Lodge Sales Associate: Sami Dominguez MD Sodium [Moles/Vol] 131 mmol/L Low 135-144 [facility] Comment on above: Performed By: #### D CITLALY, LIP, CMPX, TROPI, BNP, CDP, PT #### [facility] [address] [place] [address] Lodge Sales Associate: Sami Dominguez MD Staging: Normal [facility] Comment on above: Result Comment: Stag e 1: Some kidney damage normal GFR Stage 2: Mild kidney damage GFR 60-89 Stage 3: Moderate kidney damage GFR 30-59 Stage 4: Severe kidney damage GFR 15-29 Stage 5: Severe kidney damage GFR <15 ESRD - chronic treatment by dialysis or transplant Performed By: #### D CITLALY, LIP, CMPX, TROPI, BNP, CDP, PT #### [facility] [address] [place] [address] Lodge Sales Associate: Sami Dominguze MD Urea nitrogen [Mass/Vol] 39 mg/dL High 6-20 [facility] Comment on above: Performed By: #### D CITLALY, LIP, CMPX, TROPI, BNP, CDP, PT #### [facility] [address] [place] [address] Lodge Sales Associate: Sami Dominguez MD Comprehensive Metabolic Pane l w/ Reflex to MGon 08-02-2019 Albumin [Mass/Vol] 4.4 g/dL 3.5 - 5.2 g/dL [place] Albumin/Globulin [Mass ratio] 1.0 {ratio} [place] ALP [Catalytic activity/Vol] 98 U/L 35 - 104 U/L [place] ALT [Catalytic activity/Vol] 16 U/L 5 - 33 U/L [place] Anion gap [Moles/Vol] 18 mmol/L High 9 - 17 mmol/L [place] AST [Catalytic activity/Vol] 18 U/L <32 [place] Bilirubin Ql (U) 0.31 mg/dL 0.3 - 1.2 mg/dL [place] Bun/Cre Ratio 13 [place] Calcium [Mass/Vol] 9.7 mg/dL 8.6 - 10. 4 mg/dL [place] Chloride [Moles/Vol] 95 mmol/L Low 98 - 10 7 mmol/L [place] CO2 [Moles/Vol] 18 mmol/L Low 20 - 31 mmol/L [place] Creatinine [Mass/Vol] 3.07 mg/dL High 0.5 - 0.9 mg/dL [place] GFR 20 mL/min Low >60 [place] GFR Non- 17 mL/min Low >60 [place] Glucose [Mass/Vol] 89 mg/dL 70 - 99 mg/dL [place] Interpretation and review of laboratory results Abnormal [place] Potassium [Moles/Vol] 3.9 mmol/L 3.7 - 5.3 mmol/L [place] Protein [Mass/Vol] 8.8 g/dL High 6.4 - 8.3 g/dL [place] Sodium [Moles/Vol] 131 mmol/L Low 135 - 144 mmol/L [place] Urea nitrogen [Mass/Vol] 39 mg/dL High 6 - 20 mg/dL [place] D-Dimer Teston 08-02-2019 D-Dimer Test 1.15 mg/L FEU High 0.19-0.50 [facility] Comment on above: Result Comment: Elevated [...] LIP, CMPX, TROPI, BNP, CDP, PT #### [facility] [address] [place] [address] Lodge Sales Associate: Sami Dominguez MD D-Dimer, Quantitativeon -2 D-Dimer, Quant 1.15 [place] Comment on above: Elevated levels of [...] Interpretation and review of laboratory results Abnormal [place] Lactate, Sepsison 08-02-2019 Lactic Acid, Sepsis 3.6 mmol/L High 0.5-1.9 [facility] Comment on above: Performed By: #### L ACDS #### [facility] [address] [place] [address] Lodge Sales Associate: Sami Dominguez MD Lactic Acid,Sep Wbld NOT REPORTED Normal 0.5-1.9 [facility] Comment on above: Performed By: #### L ACDS #### [address] [place] [address] Lodge Sales Associate: Sami Dominguez MD Interpretation and review of laboratory results Abnormal [place] Lactic Acid, Sepsis 3.6 mmol/L High 0.5 - 1. 9 mmol/L [place] Lactic Acid, Sepsis, Whole Blood NOT REPORTED 0.5 - 1.9 mmol/L [place] Lactic Acidon 08-02-2019 Lactate [Moles/Vol] 1.0 mmol/L Normal 0.5-2.2 [facility] Comment on above: Performed By: #### D CITLALY, LIP, CMPX, TROPI, BNP, CDP, PT #### [facility] [address] [place] [address] Lodge Sales Associate: Sami Dominguez MD Lactate [Moles/Vol] NOT REPORTED Normal 0.7-2.1 [facility] Comment on above: Performed By: #### D CITLALY, LIP, CMPX, TROPI, BNP, CDP, PT #### [facility] [address] [place] [address] Lodge Sales Associate: Sami Dominguez MD Lactic Acid, Plasmaon 2018 Lactate [Moles/Vol] 1 mmol/L 0.5 - 2. 2 mmol/L [place] Lactic Acid, Whole Blood NOT REPORTED 0.7 - 2.1 mmol/L [place] Lipaseon 08-02-2019 Lipase [Catalytic activity/Vol] 38 U/L Normal 13-60 [facility] Comment on above: Performed By: #### D CITLALY, LIP, CMPX, TROPI, BNP, CDP, PT #### [facility] [address] [place] [address] Lodge Sales Associate: Sami Dominguez MD Lipase [Catalytic activity/Vol] 38 U/L 13 - 60 U/L [place] Metabolic Panelon 08-02-2019 GFR/1.73 sq M predicted among non-blacks MDRD (S/P/Bld) [Vol rate/Area] [place] Comment on above: Stage 1: Some [...] body mass. Additional eGFR calculator available at: http://www.Kontron.SumUp/multiple_crcl_2012.htm Microscopic Urinalysison Amorphous, UA NOT REPORTED None [place] Bacteria, UA 1+ Abnormal None [place] Casts UA NOT REPORTED /LPF [place] Crystals UA NOT REPORTED None /HPF [place] Epithelial Cells UA 2 TO 5 [place] Interpretation and review of laboratory results Abnormal [place] Mucus, UA NOT REPORTED None [place] Other Observations UA NOT REPORTED NOT REQ. M [place] RBC (U) [#/Vol] None [place] Renal Epithelial, Urine NOT REPORTED 0 /HPF [place] Trichomonas, UA NOT REPORTED None [place] WBC, UA 50 TO 100 [place] Yeast, UA NOT REPORTED None [facility] [place] PTon 08-02-2019 INR Coag (PPP) [Relative time] 1.0 {INR} Normal 0.9-1.2 [facility] Comment on above: Performed By: #### D CITLALY, LIP, CMPX, TROPI, BNP, CDP, PT #### [facility] [address] [place] [address] Lodge Sales Associate: Sami Dominguez MD PT Coag (PPP) [Time] 10.0 s Normal 9.7-12.2 [facility] Comment on above: Performed By: #### D CITLALY, LIP, CMPX, TROPI, BNP, CDP, PT #### [facility] [address] [place] [address] Lodge Sales Associate: Sami Dominguez MD Protime-INRon 08-02-2019 INR Coag (PPP) [Relative time] 1.0 {INR} [place] PT Coag (PPP) [Time] 10 s [place] Troponinon 08-02-2019 Troponin I.cardiac [Mass/Vol] ng/mL Normal <0.03 [facility] Comment on above: Result Comment: Trop onin T results cannot be compared to Troponin-I results. Performed By: #### D CITLALY, LIP, CMPX, TROPI, BNP, CDP, PT #### [facility] [address] [place] [address] Lodge Sales Associate: Sami Dominguez MD Troponin I.cardiac [Mass/Vol] Normal [facility] Comment on above: Result Comment: Refe [...] LIP, CMPX, TROPI, BNP, CDP, PT #### [facility] [address] [place] [address] Lodge Sales Associate: Sami Dominguez MD Troponin I.cardiac [Mass/Vol] NOT REPORTED Normal 0-14 [facility] Comment on above: Performed By: #### D CITLALY, LIP, CMPX, TROPI, BNP, CDP, PT #### [facility] [address] [place] [address] Lodge Sales Associate: Sami Dominguez MD Troponin I.cardiac [Mass/Vol] [place] Comment on above: Reference Range: <0.03 [...] diagnosis. Troponin T.cardiac [Mass/Vol] ug/L <0.03 ng/mL [place] Comment on above: Troponin T results c annot be compared to Troponin-I results. Troponin, High Sensitivity NOT REPORTED 0 - 14 ng/L [place] Troponin I.cardiac [Mass/Vol] ng/mL Normal <0.03 [facility] Comment on above: Result Comment: Trop onin T results cannot be compared to Troponin-I results. Performed By: #### D CITALLY, LIP, CMPX, TROPI, BNP, CDP, PT #### [facility] [address] [place] [address] Lodge Sales Associate: Sami Dominguez MD Troponin I.cardiac [Mass/Vol] Normal [facility] Comment on above: Result Comment: Refe [...] LIP, CMPX, TROPI, BNP, CDP, PT #### [facility] [address] [place] [address] Lodge Sales Associate: Sami Dominguez MD Troponin I.cardiac [Mass/Vol] NOT REPORTED Normal 0-14 [facility] Comment on above: Performed By: #### D CITLALY, LIP, CMPX, TROPI, BNP, CDP, PT #### [facility] [address] [place] [address] Lodge Sales Associate: Sami Dominguez MD Troponin I.cardiac [Mass/Vol] [place], [place] Comment on above: Reference Range: <0.03 [...] diagnosis. Troponin T.cardiac [Mass/Vol] ug/L <0.03 ng/mL [place], [place] Comment on above: Troponin T results c annot be compared to Troponin-I results. Troponin, High Sensitivity NOT REPORTED 0 - 14 ng/L [place] UA w/Reflex Cultureon 2018 Acetoacetic Acid,Ur Negative Normal NEG [facility] Comment on above: Performed By: #### D CITLALY, LIP, CMPX, TROPI, BNP, CDP, PT #### [facility] [address] [place] [address] Lodge Sales Associate: Sami Dominguez MD Bilirubin, SemiQt,Ur Negative Normal NEG [facility] Comment on above: Performed By: #### D CITLALY, LIP, CMPX, TROPI, BNP, CDP, PT #### [facility] [address] [place], [place] [id number] Lodge Sales Associate: Sami Dominguez MD Color (U) YELLOW Normal YEL [facility] Comment on above: Performed By: #### D CITLALY, LIP, CMPX, TROPI, BNP, CDP, PT #### [facility] [address] [place], [facility] Lodge Sales Associate: Sami Dominguez MD Glucose Ql (U) Negative Normal NEG [facility] Comment on above: Performed By: #### D CITLALY, LIP, CMPX, TROPI, BNP, CDP, PT #### [facility] [address] [place], [facility] Lodge Sales Associate: Sami Dominguez MD Hemoglobin, Ur 1+ Abnormal NEG [facility] Comment on above: Performed By: #### D CITLALY, LIP, CMPX, TROPI, BNP, CDP, PT #### [address] [place], [facility] Lodge Sales Associate: Sami Dominguez MD Leukocyte esterase Test strip Ql (U) MODERATE Abnormal NEG [facility] Comment on above: Performed By: #### D CITLALY, LIP, CMPX, TROPI, BNP, CDP, PT #### [address] [place], [facility] Lodge Sales Associate: Sami Dominguez MD Nitrite,Ur Negative Normal [facility] Comment on above: Performed By: #### D CITLALY, LIP, CMPX, TROPI, BNP, CDP, PT #### [facility] [address] [place] [address] Lodge Sales Associate: Sami Dominguez MD pH (U) 6.0 [pH] Normal 5.0-9.0 [facility] Comment on above: Performed By: #### D CITLALY, LIP, CMPX, TROPI, BNP, CDP, PT #### [facility] [address] [place], [place] [id number] Lodge Sales Associate: Sami Dominguez MD Protein Ql (U) TRACE Abnormal NEG [facility] Comment on above: Performed By: #### D CITLALY, LIP, CMPX, TROPI, BNP, CDP, PT #### [facility] [address] [place], [place] [id number] Lodge Sales Associate: Sami Dominguez MD Specific gravity (U) [Rel density] 1.010 Normal 1.010-1.020 [facility] Comment on above: Performed By: #### D CITLALY, LIP, CMPX, TROPI, BNP, CDP, PT #### [facility] [address] [place], [place] [id number] Lodge Sales Associate: Sami Dominguez MD Turbidity CLEAR Normal CLEAR [facility] Comment on above: Performed By: #### D CITLALY, LIP, CMPX, TROPI, BNP, CDP, PT #### [facility] [address] [place], [place] [id number] Lodge Sales Associate: Sami Dominguez MD Urobilinogen,Ur Normal Normal NORM [facility] Comment on above: Performed By: #### D CITLALY, LIP, CMPX, TROPI, BNP, CDP, PT #### [address] [place], [place] [id number] Lodge Sales Associate: Sami Dominguez MD Comment NOT REPORTED Normal [facility] Comment on above: Performed By: #### D CITLALY, LIP, CMPX, TROPI, BNP, CDP, PT #### [facility] [address] [place], [place] [id number] Lodge Sales Associate: Sami Dominguez MD Urinalysis Reflex to Culture on 08-02-2019 Bilirubin Urine Negative NEGATIVE [facility] [place], [place] Color, UA YELLOW YELLOW [facility] [place], [place] Glucose, Ur Negative NEGATIVE [facility] [place], [place] Interpretation and review of laboratory results Abnormal [facility] [place] Ketones Ql (U) Negative NEGATIVE [place] Leukocyte esterase Test strip Ql (U) MODERATE Abnormal NEGATIVE [place] Nitrite, Urine Negative NEGATIVE [place] pH, UA 6.0 [place] Protein (U) [Mass/Vol] TRACE Abnormal NEGATIVE [place], [place] Specific [place], UA 1.010 [place], [place] Turbidity UA CLEAR CLEAR [place] Urinalysis Comments NOT REPORTED [place], [place] Urine Hgb 1+ Abnormal NEGATIVE [place] Urobilinogen, Urine Normal Normal [place] Urinalysis,Microon 9 ----- Normal [facility] Comment on above: Performed By: #### D CITLALY, LIP, CMPX, TROPI, BNP, CDP, PT #### [address] [place] [address] Lodge Sales Associate: Sami Dominguez MD Bacteria LM.HPF (Urine sed) [#/Area] 1+ Abnormal [facility] Comment on above: Performed By: #### Ginette CITLALY, LIP, CMPX, TROPI, BNP, CDP, PT #### [address] [place] [address] Lodge Sales Associate: Sami Dominguez MD Epithelial cells LM.HPF (Urine sed) [#/Area] 2 TO 5 Normal 0-25 [facility] Comment on above: Performed By: #### D CITLALY, LIP, CMPX, TROPI, BNP, CDP, PT #### [address] [place] [address] Lodge Sales Associate: Sami Dominguez MD RBC (U) [#/Vol] None Normal 0-2 [facility] Comment on above: Performed By: #### D CITLALY, LIP, CMPX, TROPI, BNP, CDP, PT #### [address] [place] [address] Lodge Sales Associate: Sami Dominguez MD WBC (U) [#/Vol] 50 TO 100 Normal 0-5 [facility] Comment on above: Performed By: #### D CITLALY, LIP, CMPX, TROPI, BNP, CDP, PT #### [facility] [address] [place] [address] Lodge Sales Associate: Sami Dominguez MD Amorphous sediment LM Ql (Urine sed) NOT REPORTED Normal [facility] Comment on above: Performed By: #### D CITLALY, LIP, CMPX, TROPI, BNP, CDP, PT #### [facility] [address] [place] [address] Lodge Sales Associate: Sami Dominguez MD Casts LM.LPF (Urine sed) [#/Area] NOT REPORTED Normal [facility] Comment on above: Performed By: #### D CITLALY, LIP, CMPX, TROPI, BNP, CDP, PT #### [facility] [address] [place], [facility] Lodge Sales Associate: Sami Dominguez MD Crystals LM Nom (Urine sed) NOT REPORTED Normal [facility] Comment on above: Performed By: #### D CITLALY, LIP, CMPX, TROPI, BNP, CDP, PT #### [facility] [address] [place] [address] Lodge Sales Associate: Sami Dominguez MD Epithelial, Renal NOT REPORTED Normal 0 [facility] Comment on above: Performed By: #### D CITLALY, LIP, CMPX, TROPI, BNP, CDP, PT #### [facility] [address] [place] [address] Lodge Sales Associate: Sami Dominguez MD Mucus Strands NOT REPORTED Normal [facility] Comment on above: Performed By: #### D CITLALY, LIP, CMPX, TROPI, BNP, CDP, PT #### [facility] [address] [place], [place] [phone] Lodge Sales Associate: Sami Dominguez MD Other Observations NOT REPORTED Normal NREQ [facility] Comment on above: Performed By: #### D CITLALY, LIP, CMPX, TROPI, BNP, CDP, PT #### [facility] [address] [place] [address] Lodge Sales Associate: Sami Dominguez MD Trichomonas NOT REPORTED Normal NONE [facility] Comment on above: Performed By: #### D CITLALY, LIP, CMPX, TROPI, BNP, CDP, PT #### [facility] [address] [place] [address] Lodge Sales Associate: Sami Dominguez MD Yeast LM Ql (Urine sed) NOT REPORTED Normal NONE [facility] Comment on above: Performed By: #### D CITLALY, LIP, CMPX, TROPI, BNP, CDP, PT #### [facility] [address] [place] [address] Lodge Sales Associate: Sami Dominguez MD XR CHEST PORTABLEon 08-02-20 [...] MD 08/02/19 Final result Normal [facility] EXAMINATION: ONE XRA Y VIEW OF THE CHEST 08/02/2019 12:59 pm COMPARISON: None. HISTORY: ORDERING SYSTEM PROVIDED HISTORY: CP TECHNOLOGIST PROVIDED HISTORY: CP FINDINGS: Heart size and pulmonary vessels are within normal limits. Lungs are clear. No focal infiltrates or significant pleural effusions are seen. There is no acute osseous abnormality. Monitor leads overlie the chest. [facility] [place] No acute cardiopulmo nary process. [facility] [place] Moshe, Mhpn Incoming Radiant Results From [facility] - 08/02/2019 1:10 PM EDT EXAMINATION: ONE [...] the chest. IMPRESSION: No acute cardiopulmonary process. [facility] [place] Vital Signs Date Time Vital Sign Value Performing Clinician Facility 10-01-2024 08:19-0500 Body height 154.9 cm Ming Espinoza DO Work Phone: [facility] 10-01-2024 08:19-0500 Body mass index (BMI) [Ratio] 34.2 kg/m2 Ming Espinoza DO Work Phone: [facility] 10-01-2024 08:19-0500 Body weight 82.1 kg Ming Espinoza DO Work Phone: [facility] 10-01-2024 08:19-0500 Diastolic blood pressure 60 mm[Hg] Ming Espinoza DO Work Phone: [facility] 10-01-2024 08:19-0500 Heart rate 88 /min Ming Espinoza DO Work Phone: [facility] 10-01-2024 08:19-0500 SaO2% (BldA) [Mass fraction] 98 % Ming Espinoza DO Work Phone: [facility] 10-01-2024 08:19-0500 Systolic blood pressure 124 mm[Hg] Ming Espinoza DO Work Phone: [facility] 07-27-2024 08:34-0400 Body temperature 97.81 [degF] Lucero Didion PORT ENGINEER Work Phone: [facility] 07-27-2024 08:34-0400 Diastolic blood pressure 74 mm[Hg] Lucero Didion PORT ENGINEER Work Phone: [facility] 07-27-2024 08:34-0400 Heart rate 83 /min Lucero Didion PORT ENGINEER Work Phone: [facility] 07-27-2024 08:34-0400 SaO2% (BldA) [Mass fraction] 98 % Lucero Hudson PORT ENGINEER Work Phone: [facility] 07-27-2024 08:34-0400 Systolic blood pressure 118 mm[Hg] Lucero Hudson PORT ENGINEER Work Phone: [facility] 03-15-2024 17:34-0400 Body height 157.48 cm SWEATBAND CUTTING MACHINE OPERATOR Andreia Jerry Work Phone: [facility] 03-15-2024 17:34-0400 Body mass index (BMI) [Ratio] 31.8 kg/m2 SWEATBAND CUTTING MACHINE OPERATOR Andreia Jerry Work Phone: [facility] 03-15-2024 17:34-0400 Body temperature 100.3 [degF] SWEATBAND CUTTING MACHINE OPERATOR Andreia Jerry Work Phone: [facility] 03-15-2024 17:34-0400 Body weight 78.92 kg SWEATBAND CUTTING MACHINE OPERATOR Andreia Jerry Work Phone: [facility] 03-15-2024 17:34-0400 Diastolic blood pressure 79 mm[Hg] SWEATBAND CUTTING MACHINE OPERATOR Andreia Jerry Work Phone: [facility] 03-15-2024 17:34-0400 Heart rate 88 /min SWEATBAND CUTTING MACHINE OPERATOR Andreia Jerry Work Phone: [facility] 03-15-2024 17:34-0400 Respiratory rate 18 /min SWEATBAND CUTTING MACHINE OPERATOR Andreia Jerry Work Phone: [facility] 03-15-2024 17:34-0400 SaO2% (BldA) [Mass fraction] 96 % SWEATBAND CUTTING MACHINE OPERATOR Andreia Jerry Work Phone: [facility] 03-15-2024 17:34-0400 Systolic blood pressure 121 mm[Hg] SWEATBAND CUTTING MACHINE OPERATOR Andreia Jerry Work Phone: [facility] 07-30-2022 17:40-0400 Body height 157.48 cm Yaneth Toni Other [facility] Other 07-30-2022 17:40-0400 Body mass index (BMI) [Ratio] 36.69 kg/m2 Yaneth Toni Other [facility] Other 07-30-2022 17:40-0400 Body temperature 97.4 [degF] Yaneth Toni Other [facility] Other 07-30-2022 17:40-0400 Body weight 90.99 kg Yaneth Toni Other [facility] Other 07-30-2022 17:40-0400 Diastolic blood pressure 85 mm[Hg] Yaneth Toni Other [facility] Other 07-30-2022 17:40-0400 Respiratory rate 18 /min Yaneth Toni Other [facility] Other 07-30-2022 17:40-0400 SaO2% (BldA) [Mass fraction] 99 % Yaneth Toni Other [facility] Other 07-30-2022 17:40-0400 Systolic blood pressure 124 mm[Hg] Yaneth Toni Other [facility] Other 07-03-2022 09:45-0400 Body height 157.48 cm Estefania Vo Other [facility] Other 07-03-2022 09:45-0400 Body mass index (BMI) [Ratio] 36.76 kg/m2 Estefania Vo Other [facility] Other 07-03-2022 09:45-0400 Body temperature 97 [degF] Estefania Vo Other [facility] Other 07-03-2022 09:45-0400 Body weight 91.17 kg Estefania Vo Other [facility] Other 07-03-2022 09:45-0400 Diastolic blood pressure 60 mm[Hg] Estefania Vo Other [facility] Other 07-03-2022 09:45-0400 SaO2% (BldA) [Mass fraction] 99 % Estefania Vo Other [facility] Other 07-03-2022 09:45-0400 Systolic blood pressure 110 mm[Hg] Estefania Vo Other [facility] Other 06-20-2022 16:10-0400 Diastolic blood pressure 68 mm[Hg] DO Ming Alexis Work Phone: [facility] 06-20-2022 16:10-0400 Heart rate 69 /min DO Ming Alexis Work Phone: [facility] 06-20-2022 16:10-0400 Respiratory rate 18 /min DO Ming Alexis Work Phone: [facility] 06-20-2022 16:10-0400 SaO2% (BldA) [Mass fraction] 100 % DO Ming Alexis Work Phone: [facility] 06-20-2022 16:10-0400 Systolic blood pressure 126 mm[Hg] DO Ming Alexis Work Phone: [facility] 06-20-2022 13:15-0400 Body height 157.48 cm DO Ming Alexis Work Phone: [facility] 06-20-2022 13:15-0400 Body temperature 98.6 [degF] DO Ming Espinoza Work Phone: [facility] 06-20-2022 13:15-0400 Body weight 91.5 kg DO Ming Espinoza Work Phone: [facility] 06-18-2022 10:45-0400 Diastolic blood pressure 79 mm[Hg] DO Ming Espinoza Work Phone: [facility] 06-18-2022 10:45-0400 Heart rate 66 /min DO Ming Espinoza Work Phone: [facility] 06-18-2022 10:45-0400 Respiratory rate 16 /min DO Ming Espinoza Work Phone: [facility] 06-18-2022 10:45-0400 SaO2% (BldA) [Mass fraction] 100 % DO Ming Espinoza Work Phone: [facility] 06-18-2022 10:45-0400 Systolic blood pressure 130 mm[Hg] DO Ming Espinoza Work Phone: [facility] 06-18-2022 08:08-0400 Body mass index (BMI) [Ratio] 37.8 kg/m2 DO Ming Espinoza Work Phone: [facility] 06-18-2022 07:41-0400 Body height 157.48 cm DO Ming Espinoza Work Phone: [facility] 06-18-2022 07:41-0400 Body weight 93.89 kg DO Ming Espinoza Work Phone: [facility] 06-18-2022 06:26-0400 Body temperature 98.5 [degF] DO Minglizz Espinoza Work Phone: [facility] 05-30-2022 11:00-0400 Body height 157.48 cm Jesus Parham Other [facility] Other 05-30-2022 11:00-0400 Body mass index (BMI) [Ratio] 36.76 kg/m2 Jesus Parham Other [facility] Other 05-30-2022 11:00-0400 Body temperature 97.6 [degF] Jesus Parham Other [facility] Other 05-30-2022 11:00-0400 Body weight 91.17 kg Jesus Parham Other [facility] Other 05-30-2022 11:00-0400 Diastolic blood pressure 76 mm[Hg] Jesus Parham Other [facility] Other 05-30-2022 11:00-0400 SaO2% (BldA) [Mass fraction] 98 % Jesus Parham Other [facility] Other 05-30-2022 11:00-0400 Systolic blood pressure 128 mm[Hg] Jesus Parham Other [facility] Other 05-02-2022 14:40-0400 Body height 157.48 cm Yaneth Toni Other [facility] Other 05-02-2022 14:40-0400 Body mass index (BMI) [Ratio] 36.76 kg/m2 Yaneth Toni Other [facility] Other 05-02-2022 14:40-0400 Body temperature 97.7 [degF] Yaneth Toni Other [facility] Other 05-02-2022 14:40-0400 Body weight 91.17 kg Yaneth Toni Other [facility] Other 05-02-2022 14:40-0400 Diastolic blood pressure 88 mm[Hg] Yaneth Toni Other [facility] Other 05-02-2022 14:40-0400 Respiratory rate 18 /min Yaneth Toni Other [facility] Other 05-02-2022 14:40-0400 SaO2% (BldA) [Mass fraction] 98 % Yaneth Toni Other [facility] Other 05-02-2022 14:40-0400 Systolic blood pressure 121 mm[Hg] Yaneth Toni Other [facility] Other 04-30-2022 10:10-0400 Body height 157.48 cm Dipika Juniorault Other [facility] Other 04-30-2022 10:10-0400 Body mass index (BMI) [Ratio] 37.86 kg/m2 Dipika Shantell Other [facility] Other 04-30-2022 10:10-0400 Body temperature 97.4 [degF] Dipika Shantell Other [facility] Other 04-30-2022 10:10-0400 Body weight 93.9 kg Dipika Shantell Other [facility] Other 04-30-2022 10:10-0400 Diastolic blood pressure 80 mm[Hg] Dipika Stinson Other [facility] Other 04-30-2022 10:10-0400 Respiratory rate 16 /min Dipika Stinson Other [facility] Other 04-30-2022 10:10-0400 SaO2% (BldA) [Mass fraction] 100 % Dipika Stinson Other [facility] Other 04-30-2022 10:10-0400 Systolic blood pressure 117 mm[Hg] Dipika Stinson Other [facility] Other 04-01-2022 09:13-0400 Diastolic blood pressure 62 mm[Hg] DO Ming Espinoza Work Phone: [facility] 04-01-2022 09:13-0400 Heart rate 83 /min DO Ming Espinoza Work Phone: [facility] 04-01-2022 09:13-0400 Respiratory rate 16 /min DO Ming Espinoza Work Phone: [facility] 04-01-2022 09:13-0400 SaO2% (BldA) [Mass fraction] 97 % DO Ming Espinoza Work Phone: [facility] 04-01-2022 09:13-0400 Systolic blood pressure 101 mm[Hg] DO Ming Espinoza Work Phone: [facility] 04-01-2022 07:23-0400 Body height 157.48 cm DO Ming Espinoza Work Phone: [facility] 04-01-2022 07:23-0400 Body mass index (BMI) [Ratio] 37.8 kg/m2 DO Ming Espinoza Work Phone: [facility] 04-01-2022 07:23-0400 Body temperature 97.8 [degF] DO Minglizz Espinoza Work Phone: [facility] 04-01-2022 07:23-0400 Body weight 93.89 kg DO Ming Espinoza Work Phone: [facility] 12-06-2021 16:20-0500 Body height 157.48 cm Yaneth Toni Other [facility] Other 12-06-2021 16:20-0500 Body mass index (BMI) [Ratio] 37.86 kg/m2 Yaneth Toni Other [facility] Other 12-06-2021 16:20-0500 Body weight 93.9 kg Yaneth Toni Other [facility] Other 12-06-2021 16:20-0500 Diastolic blood pressure 89 mm[Hg] Yaneth Toni Other [facility] Other 12-06-2021 16:20-0500 Respiratory rate 18 /min Yaneth Toni Other [facility] Other 12-06-2021 16:20-0500 SaO2% (BldA) [Mass fraction] 97 % Yaneth Toni Other [facility] Other 12-06-2021 16:20-0500 Systolic blood pressure 134 mm[Hg] Yaneth Toni Other [facility] Other 08-02-2019 16:35-0400 Body Temperature 99.3 [degF] Vidal [facility] [place] 08-02-2019 16:27-0400 Pulse (Heart Rate) 110 /min [facility] [place] 08-02-2019 16:27-0400 Pulse Oximetry 98 % [facility] [place] 08-02-2019 16:27-0400 Respiratory Rate 14 /min Vidal Peguero [facility], [place] 08-02-2019 16:16-0400 BP Diastolic 56 mm[Hg] Vidal Peguero [facility] [place] , [place] 08-02-2019 16:16-0400 BP Systolic 97 mm[Hg] Vidal Peguero [facility] , [place] 08-02-2019 14:59-0400 BMI (Body Mass Index) 37.79 kg/m2 Vidal Peguero [facility], [place] 08-02-2019 14:59-0400 Body weight 90.72 kg Vidal Peguero [facility] , [place] 08-02-2019 14:59-0400 Height 154.9 cm Vidal Peguero [facility] , [place] Encounters Encounter Date Encounter Type Care Provider Facility Start: 11-12-2024 End: 11-12-2024 ambulatory LEO [facility] Start: 11-04-2024 End: 11-07-2024 Clinisync Result Encounter Generic External Data Provider [facility] External Department Unsolicited Start: 11-04-2024 End: 11-07-2024 Clinisync Result Encounter Generic External Data Provider [facility] External Department Unsolicited Start: 10-14-2024 End: 10-14-2024 Clinisync Result Encounter Generic External Data Provider [facility] External Department Unsolicited Start: 10-14-2024 End: 10-14-2024 Clinisync Result Encounter Generic External Data Provider [facility] External Department Unsolicited Start: 10-14-2024 End: 10-14-2024 ambulatory Ming Espinoza DO Work Phone: [facility] Work Phone: Start: 10-14-2024 End: 10-14-2024 Departed Referred Ming Espinoza DO Work Phone: [facility] Start: 10-02-2024 End: 10-02-2024 Clinisync Result Encounter Generic External Data Provider [facility] External Department Unsolicited Start: 10-02-2024 End: 10-02-2024 Clinisync Result Encounter Generic External Data Provider [facility] External Department Unsolicited Start: 10-01-2024 End: 10-01-2024 Office outpatient visit 40 minutes Ming Espinoza DO Work Phone: [facility] Comment on above: Benign essential hyp ertension ([facility]/HCC) (Primary Dx); Renal transplant recipient ([facility]/HCC); Immunosuppressive management encounter following kidney transplant ([facility]); Anemia of renal disease; Iron deficiency anemia, unspecified iron deficiency anemia type; Type 2 diabetes mellitus with stage 3a chronic kidney disease, without long-term current use of insulin (HCC) ([facility]); Dyslipidemia ([facility]); Fibromyalgia; Need for immunization against influenza Start: 10-01-2024 End: 10-01-2024 ambulatory MING ESPINOZA Not Available Start: 09-14-2024 End: 09-14-2024 Office outpatient visit 10 minutes Blake Hinojosa DO Work Phone: [facility] Comment on above: Cyst of left ovary Start: 09-14-2024 End: 09-14-2024 ambulatory BLAKE HINOJOSA Not Available Start: 08-31-2024 End: 08-31-2024 Clinisync Result Encounter Generic External Data Provider [facility] External Department Unsolicited Start: 08-31-2024 End: 08-31-2024 Clinisync Result Encounter Generic External Data Provider [facility] External Department Unsolicited Start: 08-25-2024 End: 08-25-2024 Patient encounter procedure Ming Espinoza DO Work Phone: [facility] Work Phone: Start: 08-25-2024 End: 08-25-2024 ambulatory Ming Espinoza DO Work Phone: [facility] Work Phone: Start: 08-02-2024 End: 08-03-2024 External Result Encounter Blake Hinojosa DO Work Phone: [facility] External Department Unsolicited Start: 08-02-2024 End: 08-03-2024 External Result Encounter Balke Hinojosa DO Work Phone: [facility] External Department Unsolicited Start: 08-02-2024 End: 08-02-2024 Office outpatient visit 10 minutes Blake Hinojosa DO Work Phone: [facility] Comment on above: Cyst of left ovary ( Primary Dx); Dyspareunia in female Start: 08-02-2024 End: 08-02-2024 ambulatory BLAKE Ginette HINOJOSA Not Available Start: 08-02-2024 End: 08-02-2024 Patient encounter procedure DO Ming Espinoza Work Phone: [facility]-XRay [facility] Work Phone: Start: 08-02-2024 End: 08-02-2024 ambulatory DO Ming Espinoza Work Phone: [facility] Work Phone: Start: 07-31-2024 End: 07-31-2024 Clinisync Result Encounter Generic External Data Provider [facility] External Department Unsolicited Start: 07-31-2024 End: 07-31-2024 Clinisync Result Encounter Generic External Data Provider [facility] External Department Unsolicited Start: 07-27-2024 End: 07-27-2024 Office outpatient visit 15 minutes Lucerostuart Hudson PORT ENGINEER Work Phone: [facility] Comment on above: Acute non-recurrent pansinusitis (Primary Dx); Side effect of medication Start: 07-27-2024 End: 07-27-2024 ambulatory MING ESPINOZA Not Available Start: 07-07-2024 End: 07-07-2024 ambulatory [facility] Start: 07-02-2024 End: 07-02-2024 ambulatory [facility] Start: 06-29-2024 End: 06-29-2024 Clinisync Result Encounter [...] Unsolicited Start: 05-19-2024 End: 05-19-[facility] Start: 04-27-2024 End: 04-27-2024 ambulatory MUNIRA TRENTMADHU [facility] Start: 04-23-2024 [facility] Start: 04-19-2024 End: 04-19-2024 ambulatory BLAKE HINOJOSA Not Available Start: 04-14-2024 End: 04-14-2024 ambulatory MUNIRA PHAN Not Available Start: 03-23-2024 End: 03-23-2024 ambulatory MING ESPINOZA Not Available Start: 03-15-2024 End: 03-15-2024 ambulatory Andreia Edwards [facility] Work Phone: Start: 03-15-2024 End: 03-15-2024 Departed Referred CECILIA Edwards Work Phone: [facility]-Lab [address] Work Phone: Start: 03-15-2024 End: 03-15-2024 Patient encounter procedure CECILIA Edwards Work Phone: [facility]gent Care Justin Work Phone: Start: 12-23-2023 End: 12-23-2023 ambulatory MUNIRA PHAN [facility] Start: 12-01-2023 End: 12-01-2023 ambulatory MING ESPINOZA Not Available Start: 11-06-2023 End: 11-06-2023 Patient encounter procedure DO Ming Espinoza Work Phone: [facility]-Lab [address] Work Phone: Start: 11-06-2023 End: 11-06-2023 ambulatory DO Ming Espinoza Work Phone: [facility] Work Phone: Start: 10-13-2023 End: 10-13-2023 ambulatory MING Preston ALEXIS Not Available Start: 07-30-2022 End: 07-30-2022 ambulatory Yaneth Toni Other [facility] Other Start: 07-30-2022 Office outpatient vi sit 25 minutes Yaneth Toni [facility] Start: 07-29-2022 End: 07-30-2022 ambulatory YANETH TONI Facility: Start: 07-16-2022 End: 07-16-2022 ambulatory DO Ming Espinoza Work Phone: [facility] [employer] Work Phone: Start: 07-16-2022 End: 07-16-2022 Patient encounter procedure DO Ming Espinoza Work Phone: [facility]-Center for Breast Care Start: 07-03-2022 End: 07-03-2022 ambulatory Estefania Vo Other [facility] Other Start: 07-03-2022 Follow-up encounter Estefania Vo [facility] V[facility] Surgery Start: 06-20-2022 End: 06-20-2022 ambulatory Jesus Parham Other [facility] Other Start: 06-20-2022 Telephone encounter Jesus Macedo [facility] Vascular Surgery Start: 06-20-2022 End: 06-20-2022 Emergency department patient visit DO Ming Espinoza Work Phone: [facility]-Emergency Room Start: 06-18-2022 End: 06-18-2022 Admission to same day surgery center DO Ming Espinoza Work Phone: [facility]-Surgery Center [address] [place] Start: 06-14-2022 End: 06-14-2022 Patient encounter procedure DO Ming Espinoza Work Phone: [facility] Start: 06-06-2022 End: 06-07-[address] BRINDA HINOJOSA Facility:H1 Start: 06-05-2022 End: 06-05-2022 Patient encounter procedure DO Ming Espinoza Work Phone: [facility]-Pre-Surgical Testing Start: 06-03-2022 End: 06-03-2022 ambulatory Jesus Chungjaclyn Other [facility] Other Start: 06-03-2022 Encounter for other preprocedural examination Jesus Dione [facility] Vascular Surgery Start: 06-03-2022 Telephone encounter Jesus Hellen [facility] Vascular Surgery Start: 05-30-2022 End: 05-30-2022 ambulatory Jesus Dione Other [facility] Other Start: 05-30-2022 FQHC visit new patient Jesus Montanez chalo [facility] Vascular Surgery Start: 05-30-2022 End: 05-30-2022 Patient encounter procedure DO Ming Espinoza Work Phone: [facility]-Ultrasound [facility] Vascular Start: 05-29-[address] BLAKE HINOJOSA [facility] ity:H1 Start: 05-02-2022 End: 05-02-2022 ambulatory Yaneth Toni Other [facility] Other Start: 05-02-2022 Office outpatient vi sit 25 minutes Yaneth Toni [facility] Nephrology Start: 04-30-2022 End: 04-30-2022 ambulatory Dipika Stinson Other [facility] Other Start: 04-30-2022 Office outpatient vi sit 15 minutes Dipika Stinson [facility]gent Care [facility] Start: 04-30-2022 Encounter for preprocedural laboratory examination YANETH TONI [facility] Start: 04-29-2022 Encounter for other preprocedural examination DR DOCTOR ALEJANDRO [facility] Start: 04-27-2022 End: 04-28-2022 Encounter for other preprocedural examination DR MING ESPINOZA Facility:H1 Start: 04-27-2022 End: 04-28-[address] MING ESPINOZA Facility:H1 Start: 04-27-2022 End: 04-28-2022 Encounter for preprocedural laboratory examination YANETH TONI Facility:H1 Start: 04-03-2022 Encounter for other specified special examinations DR DOCTOR ALEJANDRO [facility] Start: 04-01-2022 End: 04-01-2022 Admission to same day surgery center DO Ming Espinoza Work Phone: [facility]-Digestive Health Start: 03-29-2022 End: 03-30-[address] DOCTOR ALEJANDRO Facility:H1 Start: 03-29-2022 End: 03-30-2022 Encounter for other specified special examinations DR DOCTOR ALEJANDRO Facility:H1 Start: 03-28-2022 End: 03-28-2022 Patient encounter procedure DO Ming Espinoza Work Phone: [facility]-Pre-Surgical Testing Start: 02-26-2022 End: 02-26-2022 ambulatory Shabbir Jones Other [facility] Other Start: 02-26-2022 Telephone encounter Shabbir Jones [facility] Start: 12-06-2021 End: 12-06-2021 ambulatory Yaneth Toni Other [facility] Other Start: 12-06-2021 Office outpatient vi sit 25 minutes Yaneth Toni [facility] Start: 12-03-2021 End: 12-04-2021 ambulatory YANETH TONI Facility:H1 Start: 09-01-2021 End: 09-02-[address] MING ESPINOZA Facility:H1 Start: 08-02-2019 End: 08-02-2019 [facility] Start: 08-02-2019 End: 08-02-2019 Emergency department patient visit Vidal Madrigal Work Phone: [facility] ED Comment on above: Acute sepsis (HCC) ( Primary Dx); Acute cystitis without hematuria; Chronic renal failure, stage 4 (severe) (HCC); Polycystic kidney disease Procedures Date Procedure Procedure Detail Performing Clinician Start: 11-04-2024 Bacteria identified in Urine by Culture Generic External Data Provider Start: 10-14-2024 ALL URINALYSIS Generic External Data Provider Start: 10-02-2024 ALL MAGNESIUM Generic E xternal Data Provider Start: 10-02-2024 ALL PHOSPHOROUS Generic External Data Provider Start: 10-02-2024 ALL URIC ACID Generic E xternal Data Provider Start: 10-02-2024 [facility] CMP (CMP) (FOR [facility] USE) Generic External Data Provider Start: [...] Provider Start: 08-31-2024 [facility] CMP (CMP) (FOR [facility] USE) Generic External Data Provider Start: [...] manufacturers or methods may not be comparable. [facility] cradle placer and method: RUSSELL UNICEL DXI, 2 SITE IMMUNOENZYMATIC SANDWICH ASSAY. Start: 08-02-2024 Plain chest X-ray DO Chong Espinoza Work Phone: Start: 08-02-2024 Carcinoembryonic ant igen cea Blake Hinojosa DO Work Phone: Comment on above: Result Comment: Seri al tumor marker results determined by assays using different manufacturers or methods may not be comparable. [facility] cradle placer and method: RUSSELL UNICEL DXI, 2 SITE IMMUNOENZYMATIC ?SANDWICH? ASSAY. PERFORMED BY: [facility] [address] [address] [place] [id number] PATHOLOGIST WARDROBE SPECIALIST ANAHY MCKEE M.D. Performed By: #### C A125 ####[facility] ,#### CEA ####[facility] [place] [address] [facility] Start: 08-02-2024 Immunoassay tumor an tigen [...] Screening mammography of bilateral breasts DO Ming Ibarraman Work Phone: Start: 06-18-2022 Arteriovenous fistulization DO [...] eese Work Phone: Start: 08-02-2019 Natriuretic peptide Letha [...] Screening for malign ant neoplasm of colon [facility] Start: 08-25-2025 Screening for malign ant neoplasm of breast Mammogram [facility] Start: 04-23-2025 Urine screening for protein Diabetes: Urine Protein Screening [facility] Start: 04-01-2025 End: 04-01-2025 Patient encounter procedure 04/01/2025 8:15 AM EDT Office Visit [facility] [address] [place], [place] [phone] Ming Espinoza, [address] [place] [address] [facility] Start: 10-14-2024 Bacteria identified in Urine by Culture Urine Culture [facility] Start: 10-14-2024 Urine culture [facility] Start: 10-01-2024 End: 10-01-2024 Patient encounter procedure 10/01/2024 8:15 AM EST Office Visit [facility] [address] [place], [place] [phone] Ming Espinoza, [address] [place] [address] [facility] Start: 09-14-2024 End: 09-14-2024 Patient encounter procedure 09/14/2024 8:45 AM EST Office Visit [facility] [address] [place] [address] Blake Hinojosa, DO [address] [place] [address] [facility] Start: 08-26-2024 Urine screening for protein Diabetes: Urine Protein Screening [facility] Start: 08-02-2024 End: 08-02-2024 Patient encounter procedure 08/02/2024 11:00 AM EDT Office Visit [facility] [address] [place] [address] Blake Hinojosa, DO [address] [place] [address] [facility] Start: 08-02-2024 End: 08-02-2024 Professional / ancillary services management 08/02/2024 10:15 AM EDT Ancillary Procedure [facility] [address] [place], [place] [phone] [facility] Start: 08-02-2024 [facility] Start: 07-24-2024 Hemoglobin A1c measurement Violet betes: Hemoglobin A1C [facility] Start: 06-06-2024 Influenza vaccination Influenza Vacc ine (#1) [facility] Start: 03-16-2024 Bacteria identified in Urine by Culture [facility] Start: 03-15-2024 Bacteria identified in Urine by Culture [facility] Start: 11-06-2023 [facility] Start: 07-29-2023 Urine screening for protein Diabetes: Urine Protein Screening [facility] Start: 07-16-2023 Screening for malign ant neoplasm of breast Mammogram [facility] Start: 06-18-2022 [facility] Start: 06-18-2022 [facility] Start: 04-01-2022 [facility] Work Phone: Start: 06-06-2019 Influenza vaccination Flu vaccine (# 1) [place], [place] Start: 2015 Lipid screen Lipid screen [place], [place] Start: 1996 Cervical cancer screen Cervical canc er screen [place], [place] Start: 1994 DTaP/Tdap/Td vaccine (1 - Tdap) DTaP/Tdap/Td vaccine (1 - Tdap) [place], [place] Start: 1990 HIV screen HIV screen [place], [place] Start: 1985 Glaucoma screening Diabetes: R etinopathy Screening [facility] Start: 1975 Creatinine monitoring Creatinine mon itoring [place], [place] Start: 1975 Potassium monitoring Potassium monit oring [place], [place] Start: 1975 Screening for malign ant neoplasm of colon [facility] 24 hour urine measurement [facility] Albumin [Mass/volume ] in Serum or Plasma [facility] Albumin/Globulin ratio [facility] Aldolase measurement [facility] End: 08-02-2019 Bacteria identified Cx Nom (U) Urine Culture Microbiology STAT One Time for 1 Occurrences starting 08/02/2019 until 08/02/2019 [place] Comment on above: One Time for 1 Occur rences starting 08/02/2019 until 08/02/2019 Bacteria identified Cx Nom (U) Urine Culture Microbiology STAT 08/02/2019 1:00 PM EDT [place] Bacteria identified in Urine by Culture URINE CULTURE, ROUTINE Lab Routine 06/10/2024 1:35 PM EDT [facility] Bacteria identified in Urine by Culture URINE CULTURE, ROUTINE Lab Routine 11/04/2024 8:55 PM EST [facility] CA 125 [place] 125 Lab Routi ne Cyst of left ovary Ordered: 08/02/2024 [facility] Comment on above: Ordered: 08/02/2024 Cancer Ag 125 [Units/volume] in Serum or Plasma [facility] Carcinoembryonic Ag [Mass/volume] in Serum or Plasma [facility] Lab Routine Cyst of left ovary Ordered: 08/02/2024 [facility] Work Phone: Comment on above: Ordered: 08/02/2024 End: 08-02-2019 Culture blood #1 Culture blood #1 Microbiology STAT One Time for 1 Occurrences starting 08/02/2019 until 08/02/2019 [facility] [place] Comment on above: One Time for 1 Occur rences starting 08/02/2019 until 08/02/2019 End: 08-02-2019 Culture blood #2 Culture blood #2 Microbiology STAT One Time for 1 Occurrences starting 08/02/2019 until 08/02/2019 [place] Comment on above: One Time for 1 Occur rences starting 08/02/2019 until 08/02/2019 EKG 12 Lead EKG 12 Lead ECG STAT 08/02/2019 12:25 PM EDT [place] Electrophoresis: [id number] [facility] Electrophoresis: [id number] [facility] Electrophoresis: beta-globulin [facility] Electrophoresis: laura ma globulin [facility] Globulin [Mass/volum e] in Serum [facility] Homogenous nuclear A b pattern [Titer] in Serum [facility] IgA [Mass/volume] in Serum or Plasma [facility] IgG [Mass/volume] in Serum or Plasma [facility] IgM [Mass/volume] in Serum or Plasma [facility] Immunofixation for Urine [facility] Initiate Oxygen Ther apy Protocol Initiate Oxygen Therapy Protocol Respiratory Care Routine Daily until discontinued starting 08/02/2019, 2 completed [facility] [place] Comment on above: Daily until disconti nued starting 08/02/2019, 2 completed End: 08-02-2019 Lactate, Sepsis Lactate, Sepsis Lab Timed Now Then Every 2hr for 2 Occurrences starting 08/02/2019 until 08/02/2019, 1 completed [facility] [place] Comment on above: Now Then Every 2hr f or 2 Occurrences starting 08/02/2019 until 08/02/2019, 1 completed Measurement of monoc lonal protein concentration [facility] Nuclear Ab [Titer] i n Serum [facility] Patient Education [facility] Work Phone: Patient referral [facility] Work Phone: Potassium [Moles/vol ume] in Serum or Plasma [facility] Work Phone: Protein [Mass/volume ] in Serum or Plasma [facility] Protein [Mass/volume ] in Urine [facility] Serum immunofixation [facility] Immunizations Immunization Date Immunization Notes Care Provider Chirag summers 10-01-2024 Influenza, Madin Roman by Canine Kidney, subunit, trivalent, injectable, contains preservative Ming Espinoza DO Work Phone: [facility] 10-26-2023 Influenza, injectabl e, Madin Sarah Canine Kidney, preservative free, quadrivalent Generic Provider [facility] 10-26-2023 influenza virus vacc ine, unspecified formulation Generic Provider [facility] 10-13-2021 COVID-19 [id number].COV2.S (Ainsley) DO Ming Espinoza Work Phone: [facility] 05-29-2020 influenza, high dose seasonal, preservative-free Generic Provider [facility] 08-11-2019 influenza, injectabl e, madin sarah canine kidney, preservative free Generic Provider [facility] 01-26-2018 pneumococcal polysaccharide vaccine, 23 valent Generic Provider [facility] 07-22-2014 seasonal influenza, intradermal, preservative free Generic Provider [facility] Payers Date Payer Category Payer Private Health Insurance [employer] [id number] 2023 Unknown [employer] [id number] 2023-Present [address] [place] [address] [id number] 2015 Unknown [employer] [address] xxxxxxxxx 2015-Present [phone] [address] [place] [address] xxxxxxxxx [id number] 1975 Unknown [id number] 2.16.840.1.463036.3.579. 2.173 1975 Unknown [id number] 2.16.840.1.390793.3.579. 2.593 1975 Unknown [id number] 2.16.840.1.759658.3.579. 2.593 1975 Unknown [id number] 2.16.840.1.695462.3.579. 2.593 1975 Unknown [id number] 2.16.840.1.696979.3.579. 2.593 1975 Unknown [id number] 2.16.840.1.520988.3.579. 2.593 1975 Unknown [id number] 2.16.840.1.901540.3.579. 2.593 1975 Unknown [id number] 2.16.840.1.001089.3.579. 2.593 1975 Unknown [id number] 2.16.840.1.962987.3.579. 2.593 1975 Unknown [id number] 2.16.840.1.234139.3.579. 2.1259 1975 Unknown [id number] 2.16.840.1.333232.3.579. 2.1259 1975 Unknown [id number] 2.16.840.1.916561.3.579. 2.1259 1975 Unknown [id number] 2.16.840.1.583026.3.579. 2.1259 1975 Unknown [id number] 2.16.840.1.425169.3.579. 2.9 1975 Unknown [id number] 2.16.840.1.684880.3.579. 2.9 1975 Unknown [id number] 2.16.840.1.304457.3.579. 2.9 1975 Unknown [id number] 2.16.840.1.514997.3.579. 2.1258 1975 Unknown [id number] 2.16.840.1.978619.3.579. 2.1258 1975 Unknown [id number] 2.16.840.1.370451.3.579. 2.1258 1975 Unknown [id number] 2.16.840.1.892192.3.579. 2.1259 1959 Self-pay [id number] 1959 Unknown [id number] 1959 Unknown [id number] 2.16.840.1.870329.19 Unknown [id number] 2.16.840.1.985530.19 Unknown [id number] 2.16.840.1.034489.3.579. 2.531 Unknown [id number] 2.16.840.1.586833.3.579. 2.531 Unknown [id number] 2.16.840.1.841135.3.579. 2.531 Unknown [id number] 2.16.840.1.799711.3.579. 2.531 Unknown [id number] 2.16.840.1.354816.3.579. 2.531 Social History Date Type Detail Facility [facility] [place] [place] Sex Assigned At Not on file [place] Start: 04-19-2024 End: 10-01-2024 Sex Assigned At [facility] Other Start: 06-05-2022 End: 03-13-2023 Tobacco smoking status NHIS Never smoked tobacco (finding) [facility] Start: 1975 Sex Assigned At Female [facility] Start: 03-13-2023 Tobacco use and exposure Smokeless [...] Start: 08-26-2024 End: 10-15-2024 Sex Female (finding) [facility] Medical Equipment Procedure Code Equipment Code Equipment Origin al Text Equipment Identifier Dates Use as instructed [id number] Start: 06-10-2023 End: 06-09-2024 Goals Date Patient Goal Desired Activity /State Clinical Notes 05-17-2020 to 11-24-2024 Carol Camacho MA - 09/14/2024 8:45 AM Elizabeth Camacho MA - 08/02/2024 11:00 AM Dar Hudson NP - 07/27/2024 8:20 AM EDT Note Date & Type Note Facility 11-24-2024 Note Patient called stati a urine culture was supposed to be done on 11/12/24. No urine culture was done. Patient states she is still having symptoms of UTI. Patient would like a callback. [facility] 11-09-2024 Note Patient called in th is afternoon c/o ongoing urinary symptoms. She also has back pain, nausea and on/off low grade fever. Patient was treated with Keflex in mid October and recently given Cipro 250 mg BID by local ED. Reviewed with Dr. Elizondo who recommends patient come to ED to be evaluated and determine need for admission. Patient was updated and verbalized understanding. [facility] 10-21-2024 Note Pt was notified of n ew order from Dr. Blanchard by phone to complete Keflex 500mg TID for 1 week. Pt informed and verbalized understanding. RX was sent. [facility] 10-21-2024 Note Noted patient call t o [...] she had sepsis and was hospitalized @ [facility] four years ago. She at work today and seems in good humor. [facility] 10-21-2024 Note Per phone order of Kody Mcqueen MD, patient notified via phone call to decrease their medication Myfortic dose twice a day 360 mg , will now be on 360mg twice a day an no need for urology FU at this time. Pt informed by phone and verbalized understanding. [facility] 10-21-2024 Note Pt called wanting to talk to Lu. She has uti sx's with low grade fever, chills, abd pain. She didn't think of this yesterday when she spoke with Lu. She does want to go ahead and get the abx called into [facility] in [facility] 10-20-2024 Note Noted urine culture report showing E coli MDRO from [facility]. Pt reports using BID Methamine after seeing [...] Pt states prior to renal transplant her washing machine assembler prescribed Bactrim for her to prevent UTIs and she wishes that the E Coli was gone from her urine. Verbalized understanding of colonization. Have asked urology clinic [place] staff via [employer] Secure Chat to contact pt for FU with Dr. Blanchard. Will discuss with this MD plan for return visit. [facility] 10-20-2024 Note Faxed stat request [facility] Records for results of 10/14/24 urine culture. [facility] 10-12-2024 Note Patient called, stat es she is having urinary burning, urgency and cloudy urine. Denies fever. Has a history of frequent UTI's and sees Dr. Blanchard, follow up appt is scheduled next month. Questions if she can get urine culture order sent to local lab at [facility]. . Per Dr. Monterroso, order sent. Reviewed tac level of 3.7, no changes at this time due to possible infection. Patient verbalized understanding. [facility] 09-14-2024 History of Present illness Narrative Images from the original note were not included. Blake Hinojosa, DO Obstetrics and Gynecology Mandeep Puri 1975 09/14/24 [id number] Ultrasound Follow Up Exam Chief Complaint Patient [...] LOW TRANSVERSE 07/23/2003 COLONOSCOPY 04/01/2022 Dx Diverticulosis WI BREAST REDUCTION 1996 TOTAL ABDOMINAL HYSTERECTOMY 03/19/2017 [...] 09/14/24 Time 5:00PM. documented in this encounter [facility] 08-06-2024 Note Patient tac level is 8.2, per Dr Sharla anderson, patient notified to decrease envarsus by 0.5 mg, will now be on 1.5 mg daily of envarsus, repeat level in one week. Patient verbalized understanding. [facility] 08-02-2024 History of Present illness Narrative Images from the original note were not included. Blake Hinojosa, DO Obstetrics and Gynecology Mandeep Puri 1975 08/02/24 [id number] Yearly Wellness Exam Chief Complaint Patient presents [...] LOW TRANSVERSE 07/23/2003 COLONOSCOPY 04/01/2022 Dx Diverticulosis WI BREAST REDUCTION 1996 TOTAL ABDOMINAL HYSTERECTOMY 03/19/2017 [...] and the decisions I made. Signature Lona HinojosaDSonO. Date 08/02/24 Time 5:00PM. documented in this encounter [facility] 07-27-2024 History of Present illness Narrative [...] Active Problem List Diagnosis Benign essential hypertension ([facility]/HCC) Fibromyalgia MICHELLE (iron deficiency anemia) RADHA (obstructive sleep apnea) Renal transplant recipient ([facility]) Type 2 diabetes mellitus with diabetic chronic kidney disease ([facility]) Mixed anxiety and depressive disorder Dyslipidemia ([facility]/HCC) Gastroesophageal reflux disease Immunosuppressive management encounter following kidney transplant ([facility]) ADPKD (autosomal dominant polycystic kidney disease) Polyarthritis of multiple sites Anxiety Anemia of renal disease NSTEMI (non-ST elevated myocardial infarction) ([facility]) Polycystic kidney disease Secondary hyperparathyroidism ([facility]) Tonsillolith Stage 4 chronic kidney disease ([facility]/HCC) Chronic kidney disease, stage 5 ([facility]) Gout Review of Systems Constitutional: Positive [...] Lucero Hudson NP documented in this encounter [facility] 07-09-2024 Note Positive urine cultu re. Per Dr. Blanchard, Macrobid 100 mg BID x 7 days ordered to patient's pharmacy. Pt was informed and verbalized understanding. [facility] 07-07-2024 Note Chief complaint: Rec urrent urinary [...] on file Intimate Partner Violence: Unknown (11/27/2023) [place] Safety & Environment Fear of Current or [...] cyst which she will discuss with her washing machine assembler. At this point we will recommend continuing the methenamine prophylaxis. She does not prove effective can consider lowering the Myfortic. Sree lBanchard MD [facility] 06-15-2024 Note Patient notified of Augmentin Rx sent in to pharmacy for positive urine culture by NORMA Jasso per [address] secure chat. Patient verbalizes understanding. [facility] 06-10-2024 Note Patient requests uri ne culture order to be refaxed to [facility]. as the hospital is telling her not received. Order promptly refaxed with confirmation received. Pt advised to FU with coordinator and alternative fax number if hospital reports again no receipt of the order. She acknowledged understanding [facility] 06-09-2024 Note Tac level 3.0, Mg 1. [...] Patient requests order to be faxed to [facility]. [facility] 05-19-2024 Note Chief complaint: Rec urrent urinary [...] on file Intimate Partner Violence: Unknown (11/27/2023) [place] Safety & Environment Fear of Current or [...] back after the CT. Sree Blanchard MD [facility] 04-29-2024 Note Patient urine cultur e/susceptible medications [...] prior to urology appointment. Patient verbalized understanding. [facility] 04-27-2024 Note 04/27/24 Chief Complaint Patient presents [...] Txp Referring: Yaneth Muñoz Preferred Pharmacy: [facility] - [place], [place] - [address] [place] [address] [facility] [address] [facility]/pharmacy #[id number] - [facility] [place] - [address] [facility] [address] [facility] [address] [facility] [address] [facility] [place], [place] - [address] [facility] [address] [facility] [address] Subjective Visit Vitals BP 121/60 (BP Location: [...] Dose Status amLODIPine (Norvasc) 10 mg tablet [id number] Yes Take 1 tablet (10 mg) by mouth in the morning. Aguila Parrish MD Taking Active bumetanide (Bumex) 2 mg tablet [id number] Take 1 tablet (2 mg) by mouth in the morning. Patient not taking: Reported on 11/08/2022 Aguila Parrish MD 10/25/22 2359 docusate sodium (Colace) 100 mg capsule [id number] Take 1 capsule (100 mg) by mouth in the morning and at bedtime. Patient not taking: Reported on 09/01/2023 Paty Ansari NP Active DULoxetine (Cymbalta) [address] capsule [id number] Yes Take 1 capsule every day by oral route. Historical ProviderMD Taking Active Envarsus XR 1 mg tablet ER [id number] Yes TAKE 3 TABLETS BY MOUTH ONCE DAILY IN THE MORNING. TAKE ALONG WITH 0.75 MG TABLETS DIRECTED FOR TOTAL DOSE UP TO 4.5 MG PER DAY. Patient taking differently: Take 2 mg by mouth in the morning. Aguila Parrish MD Taking Flag for Review famotidine (Pepcid) 20 mg tablet [id number] Yes Take 1 tablet (20 mg) by mouth in the morning. Patient taking differently: Take 20 mg by mouth if needed. Aguila Parrish MD Taking Active febuxostat (Uloric) 40 mg tablet [id number] Take 0.5 tablets every day by oral route. Historical Provider, Active ferrous sulfate 325 (65 Fe) MG tablet [id number] Yes Take 65 mg by mouth every other day. Historical Provider, Taking Active fish oil (Lucien-3) 60-90-500 mg capsule [id number] Take 2 capsules (1,000 mg) by mouth in the morning and at bedtime. Patient not taking: Reported on 12/23/2023 Sujit Monterroso MD Active Levemir FlexPen 100 unit/mL (3 mL) pen [id number] INJECT 12 UNITS SUBCUTANEOUS IN AM 30 DAYS Historical ProviderMD Active magnesium oxide (Mag-Ox) 400 mg (241.3 mg magnesium) tablet [id number] Yes TAKE 2 TABLETS BY MOUTH IN THE MORNING AND 2 TABLETS AT BEDTIME Sree Blanchard MD Taking Active mycophenolate (Myfortic) 180 mg EC tablet [id number] Yes Take 4 tablets (720 mg) by mouth in the morning and at bedtime. Aguila Parrish MD Taking Active oxyCODONE-acetaminophen (Percocet) 5-325 mg tablet [id number] Take 1 tablet by mouth every 6 (six) hours if needed for severe pain (8-10 pain score) for up to 20 doses. Patient not taking: Reported on 09/01/2023 Paty Ansari NP Active potassium chloride CR (Klor-Con M20) 20 mEq ER tablet [id number] Yes Take 1 tablet (20 mEq) by mouth in the morning. Do not crush or chew. Andrea Elizondo MD Taking Active pravastatin (Pravachol) 40 mg tablet [id number] Yes Take 1 tablet (40 mg) by mouth at bedtime. Patient taking differently: Take 40 mg by mouth at bedtime. 40 mg 4 times a week. Fri Sat Kevin Raymond MD Taking Active semaglutide (Ozempic) 2 mg/dose (8 mg/3 mL) pen injector [id number] Yes Inject 2 mg under the skin every 7 (seven) days. Historical Provider, Taking Active tacrolimus ER (Envarsus XR) 0.75 mg tablet ER [id number] Yes Take 2 tablets (1.5 mg) by mouth in the morning. Script total 4.5 mg daily Priyanka Villanueva MD Taking Active tacrolimus ER (Envarsus XR) 1 mg tablet ER [id number] Yes Take 3 tablets (3 mg) by mouth in the morning. Script total 4.5 mg daily Priyanka Villanueva MD Taking Active Immunization History Administered Date(s) Administered Ainsley Sars-Cov-2 Vaccination 10/13/2021 Patient Active Problem List Diagnosis Anxiety COVID-19 Depressive disorder Gastroesophageal reflux disease Gout Primary hyper (more content not included)... [facility] 04-23-2024 Note Patient TAC level, 1 0.5, [...] making change in dose. Patient verbalized understanding. [facility] 04-21-2024 Note Patient called, stat es she [...] urine culture to be done, voiced understanding. [facility] 03-25-2024 Note Patient called, stat es PCP stopped Bactrim and started Keflex for E-coli in urine. On 500 mg tid x 7 days. Advised to hydrate well and get labs, repeat urine culture once completed. Voiced understanding. [facility] 03-16-2024 Note Patient called armidasarath borrero she is currently being treated for a UTI with bactrim BID for 7 days. [facility] 02-25-2024 Note Received a call from the patient regarding the non-compliant lab letter. Explained to the patient that we had gotten some labs on her but not a CMP or BMP. Patient stated that she has always gotten her labs drawn at [facility]. She will be getting labs drawn tomorrow and she will make sure that the draw the correct labs and have the results sent to us. [facility] 12-23-2023 Note 12/23/23 Chief Complaint Patient presents with Kidney Follow-up Pt has questions about her lab work. PCP: Ming Espinoza MD Txp Referring: Yaneth Muñoz [facility] Pharmacy: [facility] - [place], [place] - [address] [facility] [place] [address] [facility] [place] [address] [facility] [address] [facility]/pharmacy #[id number] [address] - [address] [place] [address] [address] [address] [facility] [place] - [address] [facility] [address] [facility] [address] Subjective Visit Vitals BP 116/73 (BP Location: [...] Review Audit Reviewed by Trupti Sanchez MA (Sharepoint Solutions Developer) on 12/23/23 at 1430 Medication Order Taking? Sig Documenting Provider Last Dose Status amLODIPine (Norvasc) 10 mg tablet [id number] Take 1 tablet (10 mg) by mouth in the morning. Aguila Parrish MD 10/24/232358 bumetanide (Bumex) 2 mg tablet [id number] Take 1 tablet (2 mg) by mouth in the morning. Patient not taking: Reported on 11/08/2022 Aguila Parrish MD 10/25/22 235 docusate sodium (Colace) 100 mg capsule [id number] Take 1 capsule (100 mg) by mouth in the morning and at bedtime. Patient not taking: Reported on 09/01/2023 Paty Ansari NP Active DULoxetine (Cymbalta) [address] capsule [id number] Yes Take 1 capsule every day by oral route. Historical ProviderMD Taking Active Envarsus XR 1 mg tablet ER [id number] Yes TAKE 3 TABLETS BY MOUTH ONCE DAILY IN THE MORNING. TAKE ALONG WITH 0.75 MG TABLETS DIRECTED FOR TOTAL DOSE UP TO 4.5 MG PER DAY. Patient taking differently: Take 2 mg by mouth in the morning. Aguila Parrish MD Taking Active famotidine (Pepcid) 20 mg tablet [id number] Yes Take 1 tablet (20 mg) by mouth in the morning. Patient taking differently: Take 20 mg by mouth if needed. Aguila Parrish MD Taking Active febuxostat (Uloric) 40 mg tablet [id number] Take 0.5 tablets every day by oral route. Historical ProviderMD Active ferrous sulfate 325 (65 Fe) MG tablet [id number] No Take 65 mg by mouth every other day. Historical ProviderMD Not Taking Active fish oil (Lucien-3) 60-90-500 mg capsule [id number] No Take 2 capsules (1,000 mg) by mouth in the morning and at bedtime. Patient not taking: Reported on 12/23/2023 Sujit Monterroso MD Not Taking Active Levemir FlexPen 100 unit/mL (3 mL) pen [id number] No INJECT 12 UNITS SUBCUTANEOUS IN AM 30 DAYS Historical MD Chari Not Taking Flag for Review magnesium oxide (Mag-Ox) 400 mg (241.3 mg magnesium) tablet [id number] Yes TAKE 2 TABLETS BY MOUTH IN THE MORNING AND 2 TABLETS AT BEDTIME Sree Blanchard MD Taking Active mycophenolate (Myfortic) 180 mg EC tablet [id number] Yes Take 4 tablets (720 mg) by mouth in the morning and at bedtime. Aguila Parrish MD Taking Active oxyCODONE-acetaminophen (Percocet) 5-325 mg tablet [id number] Take 1 tablet by mouth every 6 (six) hours if needed for severe pain (8-10 pain score) for up to 20 doses. Patient not taking: Reported on 09/01/2023 Paty Ansari NP Active potassium chloride CR (Klor-Con M20) 20 mEq ER tablet [id number] Yes Take 1 tablet (20 mEq) by mouth in the morning. Do not crush or chew. Andrea Elizondo MD Taking Active pravastatin (Pravachol) 40 mg tablet [id number] Yes Take 1 tablet (40 mg) by mouth at bedtime. Patient taking differently: Take 40 mg by mouth at bedtime. 40 mg 4 times a week. Fri Kevin Raymond MD Taking Active Immunization History Administered Date(s) Administered Replication Medical Sars-Cov-2 Vaccination 10/13/2021 Patient Active Problem List [...] Smokeless tobacco: Neve (more content not included)... [facility] 07-30-2022 Evaluation note Encounter Date [...] no indication to initiate dialysis. Jul, Otoniel welch kid w cr kid I-IV [...] She has gout and follows with a public health sanitarian technician. She takes Urolic and denies any recent gout flare Jul, Metabolic acidemia, unspecified (ICD-10 - P19.9) She has metabolic acidosis due to the advanced CKD. Continue oral Sodium Bicarbonate [facility] 09-28-2022 Evaluation note* Encounter Date Diagnosis [...] disease, unspecified CKD stage (ICD-10 - N18.9) [facility]* Encounter Date Diagnosis Assessment Notes Treatment Notes Treatment Clinical Notes May, Pre-op testing (ICD-10 - Z01.818) [facility] 08-25-2022 Evaluation note* Encounter Date Diagnosis [...] will schedule this in the near future. [facility] 07-28-2022 Evaluation note* Encounter Date Diagnosis [...] explained to her the potential need of WOOD LATHE OPERATOR in future. I discussed with her different options of WOOD LATHE OPERATOR including PD, HTN renal transplant. I provide [...] stephens s gout and follows with a public health sanitarian technician. She takes Urolic and denies any recent gout flare [facility] 07-26-2022 Evaluation note* Encounter Date Diagnosis [...] care provider if no improvement of symptoms. [facility] 05-24-2022 Evaluation note* Encounter Date Diagnosis Assessment Notes Treatment Notes Treatment Clinical Notes February, Screening for colon cancer (ICD-10 - Z12.11) [facility] 03-03-2022 Evaluation note* Encounter Date Diagnosis [...] explained to her the potential need of WOOD LATHE OPERATOR in future. I discussed with her different options of WOOD LATHE OPERATOR including PD, HTN renal transplant. I provide [...] She has gout and follows with a public health sanitarian technician. She takes Urolic and denies any recent gout flare [facility] 06-25-2021 NotePatient Outreach (NEPHMN) MANDEEP PURI ([id number]) 1975 F Date Time Provider Department 03/30/21 PERRI BARRETT During your visit today, we recorded the following information about you: Allergies As of Date: 03/30/2021 Noted Allergy Reaction ALLOPURINOL 08/02/2019 4 - Hives Date Reviewed: 03/30/2021 Reviewed by: Perri Barrett MD - Fully Assessed Visit Diagnosis:Screening for genitourinary condition [Z13.89] Order(s):URINALYSIS, DIPSTICK ONLY [SQUA] Order #: [id number]. #:[id number] Prescriptions as of 03/30/2021 Sig: DULOXETINE 60 [...] dis*03/30/2021 Encounter Status:Closed by MAXX BAZAN on 04/02/21[facility] 03-30-2021 NoteHNO ID: [id number] Author: Perri Barrett MD Service: ? Author Type: Physician Type: Progress Notes Filed: 03/30/2021 10:25 AM Note Text: Mrs. 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 sirolimus (rapamycin) [facility] History general Narrative - Reported * Type Description Date Medical History HTN (hypertension) Medical History Anxiety Medical History polycystic kidneys Medical History COVID 05-17-2020 Surgical History C section Surgical History BREAST REDUCTION Hospitalization History child Hospitalization History KIDNEY INFECTION 07/2019 Hospitalization History COVID AND DEHYDRATION [facility] 08-12-2020 History general Narrative - Reported* Type Description Date Medical History HTN (hypertension) Medical History Anxiety Medical History polycystic kidneys Medical History COVID 05-17-2020 Medical History end stage renal disease Surgical History C section Surgical History BREAST REDUCTION Surgical History colonoscopy 04/01/2022 Surgical History wisdom teeth 03/24/2022 Hospitalization History child Hospitalization History KIDNEY INFECTION 07/2019 Hospitalization History COVID AND DEHYDRATION [facility] 08-12-2020 History general Narrative - Reported* [...] INFECTION 07/2019 Hospitalization History COVID AND DEHYDRATION [facility] 08-12-2020 History general Narrative - Reported* [...] INFECTION 07/2019 Hospitalization History COVID AND DEHYDRATION [facility] Other Evaluation noteNo assessment information available [facility] Work Phone: Evaluation noteNo [facility] [place] Other Evaluation note* Diagnosis Onset Date Resolution Status Dysuria acute UTI (urinary tract infection) acute [facility] Work Phone: Evaluation note* Diagnosis Acute non-recurrent pansinusitis- Primary Side effect of medication [facility] Diagnosis Cyst of left ovary- Primary Other and unspecified ovarian cyst Dyspareunia in female [facility] Diagnosis Cyst of left ovary Other and unspecified ovarian cyst documented in this encounter [facility]* Diagnosis Benign essential hypertension ([facility])- Primary Essential hypertension, benign Renal transplant recipient ([facility]) Immunosuppressive management encounter following kidney transplant ([facility]) Encounter for long-term (current) use of other medications Anemia of renal disease Anemia in chronic kidney disease Iron deficiency anemia, unspecified iron deficiency anemia type Type 2 diabetes mellitus with stage 3a chronic kidney disease, without long-term current use of insulin (HCC) ([facility]) Dyslipidemia ([facility]) Other and unspecified hyperlipidemia Fibromyalgia Unspecified myalgia and myositis Need for immunization against influenza Need for prophylactic vaccination and inoculation against influenza documented in this encounter [facility] Diagnosis Acute sepsis (HCC)- Primary Acute cystitis without hematuria Acute cystitis Chronic renal failure, stage 4 (severe) ([facility]) Polycystic kidney disease Polycystic kidney, unspecified type Advance Directives No Advanced Directives Records FoundDocuments on File Type Date Recorded Patient 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 ical Center DATE CREATED AUTHOR AUTHOR'S ORGANIZ ATION 09/12/2020 [facility] ical Center DATE CREATED AUTHOR AUTHOR'S ORGANIZ ATION 11/07/2021 [facility] DATE CREATED AUTHOR AUTHOR'S ORGANIZ ATION 02/27/2022 [facility] DATE CREATED AUTHOR AUTHOR'S ORGANIZ ATION 08/04/2022 [facility] DATE CREATED AUTHOR AUTHOR'S ORGANIZ ATION 10/02/2024 [facility] Special[facility] EPIC DATE CREATED AUTHOR AUTHOR'S ORGANIZ ATION 10/19/2024 [facility] DATE CREATED AUTHOR AUTHOR'S ORGANIZ ATION 11/26/2024 [facility] Care Teams (unrecognized sec tion and [...] March 15, 2024 End: March 15, 2024 Developing Machine Tender Relationship Specialty Start Date End Date Ming Espinoza DO [address] [place] [address] PCP - Medical [employer] 10/06/21 10/05/99 Ming Espinoza DO [address] [place] [address] PCP - General Internal Medicine 05/02/23 Developing Machine Tender Relationship Specialty Start Date End Date Ming Espinoza DO [address] [place] [address] PCP - Medical [employer] 10/06/21 10/05/99 Ming Espinoza DO [address] [place] [address] PCP - General Internal Medicine 05/02/23 Developing Machine Tender Relationship Specialty Start Date End Date Ming Espinoza DO [address] [place] [address] PCP - Medical [employer] 10/06/21 10/05/99 Ming Espinoza DO [address] [place] [address] PCP - General Internal Medicine 05/02/23 Developing Machine Tender Relationship Specialty Start Date End Date Ming Espinoza DO [address] [place] [address] PCP - Medical [employer] 10/06/21 10/05/99 Ming Espinoza DO [address] [place] [address] PCP - General Internal Medicine 05/02/23 Team [...] August 25, 2024 End: August 25, 2024 Developing Machine Tender Relationship Specialty Start Date End Date Ming Espinoza DO [address] [place] [address] PCP - Medical [employer] 10/06/21 10/05/99 Ming Espinoza DO [address] [place] [address] PCP - General Internal Medicine 05/02/23 Developing Machine Tender Relationship Specialty Start Date End Date Ming Espinoza DO [address] [place] [address] PCP - Medical [employer] 10/06/21 10/05/99 Ming Espinoza DO [address] [place] [address] PCP - General Internal Medicine 05/02/23 Developing Machine Tender Relationship Specialty Start Date End Date Ming Espinoza DO [address] [place] [address] PCP - Medical [employer] 10/06/21 10/05/99 Ming Espinoza DO [address] [place] [address] PCP - General Internal Medicine 05/02/23 Developing Machine Tender Relationship Specialty Start Date End Date Ming Espinoza DO [address] [place] [address] PCP - Medical [employer] 10/06/21 10/05/99 Ming Espinoza DO [address] [place] [address] PCP - General Internal Medicine 05/02/23 Developing Machine Tender Relationship Specialty Start Date End Date Ming Espinoza DO [address] [place] [address] PCP - Medical [employer] 10/06/21 10/05/99 Ming Espinoza DO [address] [place] [address] PCP - General Internal Medicine 05/02/23 Team Status: Inactive Member Role Status Dates Ming Espinoza DO Primary Care Provider Active Start: October 14, 2024 End: October 14, 2024 Sujit Monterroso MD Attending Provider Active S tart: October 14, 2024 End: October 14, 2024 Developing Machine Tender Relationship Specialty Start Date End Date Ming Espinoza DO [address] [place], [place] [address] PCP - [facility] [employer] 10/06/21 10/05/99 Ming Espinoza DO [address] [place] [address] PCP - General Internal Medicine 05/02/23 Goals [...] BE BASED ON THE PRIMARY CLINICAL RECORDS. [facility] [employer] [facility]. provides no warranty or guarantee of the accuracy or completeness of information in this document.
[2024-12-03 07:41] LABS: Basophils Percent Auto 0.6 % (0.2-2.0); Eosinophils Absolute Auto 0.3 10^3/uL (0.0-0.7); Hematocrit 38.9 % (36.0-48.0); Hemoglobin 12.5 g/dL (12.0-16.0); Immature Granulocytes Abs Auto 0.04 10^3/uL (0.00-0.03); Immature Granulocytes Pct Auto 0.6 % (0.0-0.5); Lymphocytes Absolute Auto 1.1 10^3/uL (1.2-3.8); Lymphocytes Percent Auto 17.6 % (20.5-60.0); Mean Corpuscular HGB Conc 32.1 g/dL (29.9-35.2); Mean Corpuscular Hemoglobin 27.8 pg (26.7-34.0); Mean Corpuscular Volume 86.6 fL (81.0-99.0); Mean Platelet Volume 8.7 fL (9.5-13.5); Monocytes Absolute Auto 0.4 10^3/uL (0.3-0.8); Monocytes Percent Auto 5.4 % (1.7-12.0); Neutrophils Absolute Auto 4.6 10^3/uL (1.4-6.5); Neutrophils Percent Auto 70.8 % (43.0-75.0); Platelet Count 283 10^3/uL (150-450); Red Blood Count 4.49 10^6/uL (4.20-5.40); Red Cell Distribution Width 15.1 % (11.0-15.0); White Blood Count 6.4 10^3/uL (4.0-11.0)
[2024-12-03 08:21] LABS: Alanine Aminotransferase 24 U/L (14-59); Albumin Level 3.9 g/dL (3.4-5.0); Alkaline Phosphatase 83 U/L (46-116); Anion Gap 12.9; Aspartate Amino Transferase 19 U/L (15-37); BUN Creatinine Ratio 11.9; Bilirubin Direct 0.1 mg/dL (0.0-0.2); Bilirubin Total 0.4 mg/dL (0.2-1.0); Calcium 9.4 mg/dL (8.5-10.1); Chloride 106 mmol/L (98-107); Chol HDL Ratio 3.3; Cholesterol 186 mg/dL (<=200); Estimated Average Glucose 97 mg/dL; Estimated GFR (African America 47 (>=60 mL/min/1.73m^2); Estimated GFR (Non-African Ame 39 (>=60 mL/min/1.73m^2); Globulin 3.9 g/dL; Glucose 139 mg/dL (74-106); HDL Cholesterol 56 mg/dL (40-60); Potassium 3.9 mmol/L (3.5-5.1); Sodium 141 mmol/L (136-145); Total Protein 7.8 g/dL (6.4-8.2); Triglycerides 152 mg/dL (<=150); Uric Acid 4.2 mg/dL (2.6-6.0); VLDL CHOLESTEROL 30.4 mg/dL
[2024-12-06 13:07] LABS: BKV DNA, Quant PCR, Plasma Negative (Negative)
== END 2024-12-03 07:06 | disposition home or self-care (01) ==
LOC: LAB 07:05
PROVIDERS: PCP Internal Medicine
DX: E78.5 Hyperlipidemia, unspecified (principal); Z94.0 Kidney transplant status; R73.01 Impaired fasting glucose; R60.9 Edema, unspecified
CPT/HCPCS: 36415; 80053; 80061; 80197; 82248; 83036; 83735; 84550; 85025; 87799

== ENCOUNTER 2024-12-30 07:11 | Outpatient (OUT) | payer OTHER, SELFPAY ==
--- OUTSIDE RECORDS SUMMARY | 2024-12-30 07:16 | XMS_ITS | CCD ---
Author Organization [facility] Care Team Providers Care Search Marketing Coordinator Name Role Phone Ming Espinoza Primary Care Provider VIDAL MADRIGAL Attending Unavailable MING ESPINOZA Primary Care Unavailable Toni, Yaneth Unavailable Shabbir Jones Unavailable Dipika Stinson Unavailable Jesus Parham Unavailable [phone] DO Ming Espinoza Primary Care Provider MD Shabbir Jones Attending Provider [phone] MD Yaneth Muñoz Attending Provider [phone] MD Jesus Parham Attending Provider Estefania Vo Unavailable DO Ming Espinoza Primary Care Provider EB Forman Emergency Provider [phone] DO Blake Hinojosa Attending Provider ANGELAC, DR [...] Unavailable DO Alexis Ming Primary Care Provider [phone] MD Perri Ceja Attending Provider CECILIA Edwards Attending Provider [phone] Ming Espinoza DO Unavailable Ming Espinoza DO Primary Care Provider DO Ming Espinoza Primary Care Provider [phone] MD Jesus Ayala Attending Provider DO Blake Hinojosa Referring Provider Ming Espinoza DO Primary Care Provider Jesus Ayala MD Attending Provider Blake Hinojosa DO Referring Provider [phone] Blake Hinojosa DO Attending Provider [phone] MING ESPINOZA Attending Unavailable MING ESPINOZA Referring Unavailable MING ESPINOZA Referring Unavailable LUCERO HUDSON Attending Unavailable MING ESPINOZA Attending Unavailable MUNIRA PHAN Referring Unavailable BLAKE HINOJOSA Attending Unavailable BLAKE HINOJOSA Referring Unavailable MING ESPINOZA Referring Unavailable LUCERO HUDSON Attending Unavailable BLAKE HINOJOSA Attending Unavailable BLAKE HINOJOSA Attending Unavailable MING ESPINOZA Attending Unavailable Sujit Monterroso MD Attending Provider Perri Ceja Attending Unavailable Ming Espinoza [facility] Unavailable Perri Ceja Admitting Unavailable Jerry, Andreia Solano Admitting Unavailable Jerry, Andreia Solano Attending [facility] Unavailable Jesus Ayala Admitting Unavailable Jesus Ayala Attending Unavailable Blake Hinojosa Referring Unavailable Ming Espinoza [facility] Unavailable Dolores, Sujit Admitting Unavailable Dolores, Sujit Attending Unavailable Ming Espinoza [facility] Unavailable Blake Hinojosa Admitting Unavailable Blake Hinojosa Attending Unavailable RABETS, SREE Attending Unavailable DOLORES, SUJIT Referring Unavailable RABETS, SREE Attending Unavailable SAVZYAN, LEO Attending Unavailable RABETS, SREE Referring Unavailable CRISENBERY, MUNIRA Attending Unavailable CRISENBERY, MUNIRA Attending Unavailable Allergies Allergy Classification Reported Allergen(s) Allergy Type Date of Onset Reaction(s) Facility (20 sources) Allopurinol; Translations: [ALLOPURINOL] Drug Allergy 9 hives, Rash [employer] [place] (20 sources) venlafaxine; Translations: [venlafaxine] Drug Allergy 2 Rash, Rash, hives [facility] (18 sources) venlafaxine; Translations: [VENLAFAXINE HCL] Drug Allergy 1 [facility] (1 source) Allopurinol Drug Allergy 4 [facility] Repository Medications Current Medications Medication Drug [...] acid 7540 MG / polyethylene glycol 3350 94917 MG / potassium chloride 1200 MG / sodium ascorbate 47801 MG / sodium chloride 3200 MG Powder for Oral Solution) / 1 (polyethylene glycol 3350 057000 MG / potassium chloride 1000 MG / sodium chloride 2000 MG / sodium sulfate 9000 MG Powder for Oral Solution) } Pack [Plenvu] (1 source) Osmotic Laxative, Vitamin C Start: 02-26-2022 Plenvu 140 GM dose 1 pouch at 4pm, dose 2 pouch A & B at 11pm Orally twice a day for 1 days BIN:[id number] PCN: [id number] GROUP:[id number] ID:[id number] February, Active cephalexin 500 mg oral capsule [...] as needed Orally Once a day Active ciprofloxacin 250 mg oral tablet (10 sources) Quinolone Antimicrobial Start: 11-05-2024 take 1 tablet by mouth in the morning ciprofloxacin (Cipro) 250 MG tablet Take 250 mg by mouth in the morning and 250 mg before bedtime. 11/05/2024 Active Start: 05-15-2020 End: 04-01-2022 take 1 tablet by mouth every twelve hours Ciprofloxacin Hcl (Cipro) 250 mg tablet Discontinued 250 MG PO Q12H 6 May 14, 2020 11:00pm April 01, 2022 6:03am DULoxetine 60 mg delayed release oral capsule [...] MG PO Twice daily 60 30 August 04, 2019 11:00pm April 01, 2022 [...] order) Start: 03-15-2024 [facility] 2 tablets by [facility] magnesium oxide (Mag-Ox) 400 (240 Mg) MG tablet TAKE 2 TABLETS BY MOUTH IN THE MORNING AND 2 TABLETS AT BEDTIME 06/22/2024 Active methenamine hippurate 1000 mg oral tablet (11 sources) take 1 tablet by mouth twice [...] acid 180 mg delayed release oral tablet (17 sources) Antimetabolite Immunosuppressant take 4 tablets by mouth in the morning mycophenolate (Myfortic) 180 MG EC tablet Take 4 tablets by mouth in the morning and 4 tablets before bedtime. Active microencapsulated potassium chloride 20 meq extended release oral tablet (17 sources) take 1 tablet by mouth once [...] (Ozempic, 1 MG/DOSE,) 4 MG/3ML solution pen-injector (15 sources) Start: 11-01-2024 inject 1 mg by [...] 2024 11:00pm tiZANidine 4 mg oral tablet (12 sources) Central alpha-2 Adrenergic Agonist Start: 08-31-2024 [...] mg Start: 08-02-2019 take 2 tablets by [facility] once daily as needed for pain Acetaminophen (Tylenol Extra Strength) 500 mg Tablet Active 1000 MG PO Daily as needed for Muscle Pain August 01, 2019 11:00pm calcitriol 0.12111 mg oral capsule (9 sources) Vitamin D3 [...] in sterile water 10 mL IV syringe ergocalciferol 1.25 mg oral capsule (9 sources) Provitamin D2 Compound Start: 01-20-2019 End: 08-02-2019 take 1 capsule by mouth every month Ergocalciferol (Vitamin D2) 50,000 unit capsule Discontinued 46732 UNIT PO every month January 19, 2019 [...] chronic diseases of tonsils and adenoids] Onset: 03-15-2024 Chronic Acute and unspecified renal failure (1 source) Chronic renal failure; Translations: [Chronic renal failure, stage 4 (severe) ([facility])] Chronic Acute and unspecified renal failure [...] Resolved: 2 Chronic Diabetes mellitus with complications (19 sources) Chronic kidney disease due to type 2 diabetes mellitus; Translations: [Type 2 diabetes mellitus with diabetic chronic kidney disease] Onset: 3 03-04-2023 Chronic Diabetes mellitus without complication (19 sources) Impaired fasting glycemia; Translations: [Impaired fasting glucose] Onset: 3 Resolved: 3 03-13-2023 Episodic Disorders of lipid metabolism (19 sources) Dyslipidemia; Translations: [Hyperlipidemia, unspecified] Onset: 3 06-10-2023 Chronic Esophageal disorders (17 sources) Gastroesophageal reflux disease; Translations: [Gastro-esophageal reflux [...] unspecified] 08-04-2019 Episodic Other non-traumatic joint disorders (17 sources) Polyarthropathy; Translations: [Polyarthritis, unspecified] Onset: 3 [...] ovary] Onset: 2 Episodic Residual codes; unclassified (17 sources) Obstructive sleep apnea syndrome; Translations: [Obstructive [...] deficiency anemia, unspecified] Onset: 03-04-2023 03-15-2024 Episodic Fluid and electrolyte disorders (3 sources) Acidosis; Translations: [ACIDOSIS] Onset: 12-06-2021 Resolved: 05-02-2022 Episodic Genitourinary symptoms and ill-defined conditions (13 sources) Dysuria; Translations: [Dysuria] Onset: 03-15-2024 01-19-2019 Episodic Other aftercare (19 sources) Transplant follow-up; Translations: [Other chemist proteins (current) drug therapy] Onset: 10-23-2022 06-10-2023 Episodic Other connective tissue disease (19 sources) Fibromyalgia; Translations: [Fibromyalgia] Onset: 03-04-2023 03-04-2023 [...] Test Name Value Interpretation Reference Range Facility Documentationon 12-14-2024 Documentation [id number] Antonio Puri i 1975 F Date Provider Department Center 12/14/2024 ANDERSON GOODWIN None Family History Problem Relation Age of Onset Fibromyalgia Mother Heart disease Father Hypertension Sister Polycystic kidney disease Sister Hypertension Brother Polycystic kidney disease Brother Family Status - Relation Status Age at Mother Alive Father Sister Brother Reason for Visit and Comments: Results [95] Normal [facility] ALL CBC WITH AUTO DIFFon BASOPHILS ABSOLUTE AUTO 0 N [facility] Basophils/100 WBC (Bld) 0.6 % 0.2 - 2.0 % [facility] Eosinophils/100 WBC (Bld) 5 % 0.9 - 7.0 % [facility] Erythrocyte distribution width (RBC) [Ratio] 15.1 % High 11.0 - 15.0 % [facility] Hematocrit (Bld) [Volume fraction] 38.9 % 36.0 - 48.0 % [facility] Hemoglobin (Bld) [Mass/Vol] 12.5 g/dL 12.0 - 16.0 g/dL [facility] IMMATURE GRANULOCYTES ABS AUTO 0.04 High [facility] Immature granulocytes/100 WBC (Bld) 0.6 % High 0.0 - 0.5 % [facility] Interpretation and review of laboratory results Abnormal [facility] LYMPHOCYTES ABSOLUTE AUTO 1.1 Low [facility] Lymphocytes/100 WBC (Bld) 17.6 % Low 20.5 - 60.0 % [facility] MCH (RBC) [Entitic mass] 27.8 pg 26.7 - 34.0 pg [facility] MCHC (RBC) [Mass/Vol] 32.1 g/dL 29.9 - 35.2 g/dL [facility] MCV (RBC) [Entitic vol] 86.6 fL 81.0 - 99.0 fL [facility]OC[facility]TES [facility] Monocytes/100 WBC (Bld) 5.4 % 1.7 - 12.0 % [facility] NEUTROPHILS ABSOLUTE AUTO 4.6 [facility] Neutrophils/100 WBC (Bld) 70.8 % 43.0 - 75.0 % [facility] Platelet mean volume (Bld) [Entitic vol] 8.7 fL Low 9.5 - 13.5 fL [facility] TBH EO # 0.3 [facility] PLT 283 [facility] RBC 4.49 [facility] WBC 6.4 [facility] Refillon 11-25-2024 Refill [id number] Antonio Puri i 1975 F Date Provider Department Center 11/25/2024 [id number] JENKINS TXP None Family History Problem Relation Age of Onset Fibromyalgia Mother Heart disease Father Hypertension Sister Polycystic kidney disease Sister Hypertension Brother Polycystic kidney disease Brother Family Status - Relation Status Age at Mother Alive Father Sister Brother [facility] Follow-Upon 11-12-2024 Follow-Up [id number] Antonio Puri i 1975 F Date Provider Department Center 11/12/2024 [id number] KHAN TXP None Family History Problem Relation Age of Onset Fibromyalgia Mother Heart disease Father Hypertension Sister Polycystic kidney disease Sister Hypertension Brother Polycystic kidney disease Brother Family Status - Relation Status Age at Mother Alive Father Sister Brother Level of Service:44224 [place] OFFICE/OUTPATIENT ESTABLISHED MOD MDM 30 MIN Reason for Visit and Comments: Kidney Follow-up [] - Pt has reoccurring uti's x7 months. She is going to ID to be checked. She would like a standing lab order for a ua. [facility] Orders Onlyon 10-21-2024 Orders Only [id number] Antonio Puri i 1975 F Date Provider Department Center 10/21/20241970-LU STEPHENS TXP None Family History Problem Relation Age of Onset Fibromyalgia Mother Heart disease Father Hypertension Sister Polycystic kidney disease Sister Hypertension Brother Polycystic kidney disease Brother Family Status - Relation Status Age at Mother Father Sister Brother Normal [facility] ALL URINALYSISon 10-14-2024 BILIRUBIN URINE Negative NEGATIVE [facility] BLOOD URINE TRACE-I NEGATIVE [facility] Clarity (U) CLEAR CLEAR [facility] Color (U) LT. YELLOW YELLOW [facility] GLUCOSE URINE UA Negative NEGATIVE mg/dL [facility] Interpretation and review of laboratory results Abnormal [facility] Ketones Ql (U) Negative NEGATIVE mg/dL [facility] Leukocyte esterase Test strip Ql (U) LARGE Abnormal NEGATIVE [facility] NITRITE URINE Positive Abnormal NEGATIVE [facility] pH (U) 7.5 [pH] 5.0 - 9.0 [facility] PROTEIN URINE Negative NEG/TRACE mg/dL [facility] SPECIFIC GRAVITY URINE 1.015 1.005 - 1.025 [facility] UROBILINOGEN URINE 0.2 EU/dL 0.2 - 1.0 EU/dL [facility] Urine Cultureon 10-14-2024 Bacteria identified Cx Nom (U) ORGANISM: Escherichia coli (MDRO) (O:ESCCOLMDRO) Curtis Count >100,000 Aerobic CODI Charge (NMIC56) - [...] RESISTANT TO ALL B-LACTAM DRUGS. PERFORMED BY: [place] [address] PATHOLOGIST EMBROIDERY WORKER DOM MARIEE M.D. Normal [facility] Comment on above: Performed By: #### C UU #### [address] ALL MAGNESIUMon 10-02-2024 Magnesium [Mass/Vol] 1.8 mg/dL 1.8 - 2 .4 mg/dL [facility] ALL PHOSPHOROUSon 10-02-2024 Phosphate [Mass/Vol] 3.9 mg/dL 2.6 - 4 .7 mg/dL [facility] ALL URIC ACIDon 10-02-2024 Urate [Mass/Vol] 4.2 mg/dL 2.6 - 6.0 mg/dL [facility] CCF CMP (CMP) (FOR REMOTE FH C USE)on 10-02-2024 Albumin [Mass/Vol] 3.3 g/dL Low 3.4 - 5.0 g/dL [facility] ALBUMIN GLOBULIN RATIO 0.8 NO [facility] ALP [Catalytic activity/Vol] 84 U/L 46 - 116 U/L [facility] ALT [Catalytic activity/Vol] 13 U/L Low 14 - 59 U/L [facility] Anion gap [Moles/Vol] 14.6 mmol/L NO [facility] AST [Catalytic activity/Vol] 11 U/L Low 15 - 37 U/L [facility] Bilirubin [Mass/Vol] 0.3 mg/dL 0.2 - 1 .0 mg/dL [facility] Calcium [Mass/Vol] 9.3 mg/dL 8.5 - 10. 1 mg/dL [facility] Chloride [Moles/Vol] 105 mmol/L 98 - 10 7 mmol/L [facility] CO2 [Moles/Vol] 25 mmol/L 21.0 - 32.0 mmol/L [facility] Creatinine [Mass/Vol] 1.37 mg/dL High 0.55 - 1.02 mg/dL [facility] GFR/1.73 sq M.predicted CKD-EPI (S/P/Bld) [Vol rate/Area] 50 Low >=60 mL/min/1.73m 2 [facility] Globulin (S) [Mass/Vol] 4.2 g/dL N [facility] Glucose [Mass/Vol] 102 mg/dL 74 - 106 mg/dL [facility] Interpretation and review of laboratory results Abnormal [facility] Potassium [Moles/Vol] 3.6 mmol/L 3.5 - 5.1 mmol/L [facility] Protein [Mass/Vol] 7.5 g/dL 6.4 - 8.2 g/dL [facility] Sodium [Moles/Vol] 141 mmol/L 136 - 145 mmol/L [facility] TBH EGFR-NON AF GEORGIAN 41 Low >=60 mL/min/1.73m 2 [facility] Urea nitrogen [Mass/Vol] 17 mg/dL 7.0 - 18.0 mg/dL [facility] Urea nitrogen/Creatinine [Mass ratio] 12.4 mg/mg [facility] METRO BILIRUBIN, DIRECTon Bilirubin.indirect [Mass/Vol] 0.1 mg/dL 0.0 - 0.2 mg/dL [facility] No Panel Informationon 10-02 [facility] ALL CBC WITH AUTO DIFFon BASOPHILS ABSOLUTE AUTO 0 N [facility] Basophils/100 WBC (Bld) 0.3 % 0.2 - 2.0 % [facility] Eosinophils/100 WBC (Bld) 2.8 % 0.9 - 7.0 % [facility] Erythrocyte distribution width (RBC) [Ratio] 14.5 % 11.0 - 15.0 % [facility] Hematocrit (Bld) [Volume fraction] 34.4 % Low 36.0 - 48.0 % [facility] Hemoglobin (Bld) [Mass/Vol] 10.9 g/dL Low 12.0 - 16.0 g/dL [facility] IMMATURE GRANULOCYTES ABS AUTO 0.03 [facility] Immature granulocytes/100 WBC (Bld) 0.4 % 0.0 - 0.5 % [facility] Interpretation and review of laboratory results Abnormal [facility] LYMPHOCYTES ABSOLUTE AUTO 1.2 [facility] Lymphocytes/100 WBC (Bld) 15.4 % Low 20.5 - 60.0 % [facility] MCH (RBC) [Entitic mass] 27.5 pg 26.7 - 34.0 pg [facility] MCHC (RBC) [Mass/Vol] 31.7 g/dL 29.9 - 35.2 g/dL [facility] MCV (RBC) [Entitic vol] 86.9 fL 81.0 - 99.0 fL [facility] MONOCYTES ABSOLUTE AUTO 0.5 N [facility] Monocytes/100 WBC (Bld) 6.2 % 1.7 - 12.0 % [facility] NEUTROPHILS ABSOLUTE AUTO 5.7 [facility] Neutrophils/100 WBC (Bld) 74.9 % 43.0 - 75.0 % [facility] Platelet mean volume (Bld) [Entitic vol] 8.5 fL Low 9.5 - 13.5 fL [facility] EO # 0.2 [facility] TB PLT 337 [facility] RBC 3.96 Low [facility] TB WBC 7.6 [facility] ALL LIPID PROFILE (FASTING)o n 08-31-2024 CHOL HDL RATIO 3.6 [facility] Comment on above: 3.3 - 4.4 LOW RISK 4.4 - 7.1 AVERAGE RISK 7.1 - 11.0 MODERATE RISK >11.0 HIGH RISK Cholesterol [Mass/Vol] 175 mg/dL NINF - 200 mg/dL [facility] Cholesterol in HDL [Mass/Vol] 49 mg/dL 40 - 60 mg/dL [facility] Comment on above: > or =60 mg/dl - LOW CARDIOVASCULAR RISK <40 mg/dl - HIGH CARDIOVASCULAR RISK Magnesium [Mass/Vol] 99.6 mg/dL [facility] Comment on above: <100 mg/dl OPTIMAL 100-129 mg/dl NEAR OR ABOVE OPTIMAL 130-159 mg/dl BORDERLINE HIGH 160-189 mg/dl HIGH >190 mg/dl VERY HIGH Magnesium [Mass/Vol] 26.4 mg/dL [facility] Triglyceride [Mass/Vol] 132 mg/dL NINF - 150 mg/dL [facility] ALL MAGNESIUMon 08-31-2024 Magnesium [Mass/Vol] 1.9 mg/dL 1.8 - 2 .4 mg/dL [facility] ALL PHOSPHOROUSon 08-31-2024 Phosphate [Mass/Vol] 3.7 mg/dL 2.6 - 4 .7 mg/dL [facility] ALL URIC ACIDon 08-31-2024 Urate [Mass/Vol] 4 mg/dL 2.6 - 6.0 mg/dL [facility] CCF CMP (CMP) (FOR REMOTE FH C USE)on 08-31-2024 Albumin [Mass/Vol] 3.4 g/dL 3.4 - 5.0 g/dL [facility] ALBUMIN GLOBULIN RATIO 0.8 NO [facility] ALP [Catalytic activity/Vol] 86 U/L 46 - 116 U/L [facility] ALT [Catalytic activity/Vol] 19 U/L 14 - 59 U/L [facility] Anion gap [Moles/Vol] 17.2 mmol/L NO [facility] AST [Catalytic activity/Vol] 11 U/L Low 15 - 37 U/L [facility] Bilirubin [Mass/Vol] 0.4 mg/dL 0.2 - 1 .0 mg/dL [facility] Calcium [Mass/Vol] 9.3 mg/dL 8.5 - 10. 1 mg/dL [facility] Chloride [Moles/Vol] 104 mmol/L 98 - 10 7 mmol/L [facility] CO2 [Moles/Vol] 24.6 mmol/L 21.0 - 32.0 mmol/L [facility] Creatinine [Mass/Vol] 1.34 mg/dL High 0.55 - 1.02 mg/dL [facility] GFR/1.73 sq M.predicted CKD-EPI (S/P/Bld) [Vol rate/Area] 51 Low >=60 mL/min/1.73m 2 [facility] Globulin (S) [Mass/Vol] 4.2 g/dL N [facility] Glucose [Mass/Vol] 98 mg/dL 74 - 106 mg/dL [facility] Interpretation and review of laboratory results Abnormal [facility] Potassium [Moles/Vol] 3.8 mmol/L 3.5 - 5.1 mmol/L [facility] Protein [Mass/Vol] 7.6 g/dL 6.4 - 8.2 g/dL [facility] Sodium [Moles/Vol] 142 mmol/L 136 - 145 mmol/L [facility] TBH EGFR-NON AF GEORGIAN 42 Low >=60 mL/min/1.73m 2 [facility] Urea nitrogen [Mass/Vol] 16 mg/dL 7.0 - 18.0 mg/dL [facility] Urea nitrogen/Creatinine [Mass ratio] 11.9 mg/mg [facility] METRO BILIRUBIN, DIRECTon Bilirubin.indirect [Mass/Vol] 0.1 mg/dL 0.0 - 0.2 mg/dL [facility] MLR HEMOGLOBIN A1Con 024 Glucose [Mass/Vol] 103 mg/dL [facility] HbA1c (Bld) [Mass fraction] 5.2 % 4.5 - 6.2 % [facility] Comment on above: ADA RECOMMENDED LIMI T 4.0 - 6.0 ADA THERAPEUTIC TARGET < 7.0 ACTION SUGGESTED > 7.[facility] Panel Informationon 08-31 [facility] MM screening mammo BI w/CADo n 08-25-2024 MM screening mammo BI w/CAD [facility] [place] [address] Mammography Report Signed Patient: Mandeep Puri MR#: [id number] 15 : 1975 Acct:[id number] Age/Sex: 48 / F ADM Date: 08/25/24 Loc: [place] Room: Type: [facility] Attending Dr: Blake Hinojosa DO Copies to: [...] Messina Jr., D.O.08/25/2024 3:24 PM Dictation Location: [facility] Transcribed By: SALMA 08/25/24 152 Dictated By: Evan Messina Jr, DO 08/25/24 152 Signed By: 08/25/24 152 Normal [facility] Mammography reportOrdered By : Evan Messina on 08-25-2024 Diagnostic imaging study [facility] [place] [address] Mammography Report Signed Patient: Mandeep Puri MR#: [id number] : 1975 Acct:[id number] Age/Sex: 48 / F ADM Date: 4 Loc: [place] Room: Type: [facility] Attending Dr: Blake Hinojosa DO Copies to: [...] Messina Jr., D.O.08/25/2024 3:24 PM Dictation Location: [facility] Transcribed By: SALMA 08/25/24 152 Dictated By: Evan Messina Jr, DO 08/25/24 152 Signed By: 08/25/24 152 [facility] [place] 125on 08-03-2024 CANCER ANTIGEN 125 12.9 0.0 - 38.1 [facility] Comment on above: [facility] El ectrochemiluminescence Immunoassay (ECLIA) Values obtained with different assay methods or kits cannot be used interchangeably. Results cannot be interpreted as absolute evidence of the presence or absence of malignant disease. Performed at: [address] [id number] Data Warehouse Manager: Gabriel Whitman PhD, Phone: [phone] [facility] 24 hour urine albumin/total protein ratio by electrophoresisOrdered By: Jesus Ayala on 08-02-2024 Albumin Elph (24H U) [Mass fraction] Albumin/Protein.total in 24 hour Urine by Electrophoresis . [facility] 24 hour urine gamma globulin /total protein ratio by electrophoresisOrdered By: Jesus Ayala on 08-02-2024 Gamma globulin Elph (24H U) [Mass fraction] Gamma globulin/Protein.total in 24 hour Urine by Electrophoresis . [facility] 24 hour urine protein monocl onal/total protein by electrophoresisOrdered By: Jesus Ayala on 08-02-2024 Protein.monoclonal Elph (24H U) [Mass fraction] Protein.monoclonal/Prote in.total in 24 hour Urine by Electrophoresis Not Observed [facility] Alanine aminotransferase [En zymatic activity/volume] in Serum or PlasmaOrdered By: Jesus Ayala on 08-02-2024 ALT [Catalytic activity/Vol] 11 U/L Normal 7-52 [facility] Comment on above: Performed By: #### U PE RAND, CAMILLA,URINE, ALDOLASE, SPE, CAMILLA SERUM #### [facility] , #### ADDONUAPLUS, T4F, ESR, CMP, CK, CBC, CRP, TSH3 #### [facility] [address] ALT [Catalytic activity/Vol] Alanine aminotransferase [Enzymatic activity/volume] in Serum or Plasma [facility] Albumin [Mass/volume] in Ser um or Plasma by Bromocresol green (BCG) dye binding methoOrdered By: Jesus Ayala on 08-02-2024 Albumin BCG dye [Mass/Vol] 4.3 g/dL 3.5-5.7 [facility] Albumin BCG dye [Mass/Vol] Albumin [Mass/volume] in Serum or Plasma by Bromocresol green (BCG) dye binding metho 3.5-5.7 [facility] Aldolaseon 08-02-2024 Aldolase 3.5 U/L Normal 3.3-10.3 [facility] Comment on above: Result Comment: Perf ormed at: - [facility] [place] [id number] Data Warehouse Manager: Gabriel Whitman PhD, Phone: [phone] PERFORMED BY: [facility] [address] [place] [address] PATHOLOGIST EMBROIDERY WORKER ANAHY MCKEE M.D. Performed By: #### U PE RAND, CAMILLA,URINE, ALDOLASE, SPE, CAMILLA SERUM ####[facility] ,#### ADDONUAPLUS, T4F, ESR, CMP, CK, CBC, CRP, TSH3 ####[facility] Alkaline phosphatase [Enzyma tic activity/volume] in Serum or PlasmaOrdered By: Jesus Ayala on 08-02-2024 ALP [Catalytic activity/Vol] 87 U/L Normal 34-104 [facility] [facility] Comment on above: Performed By: #### U PE RAND, CAMILLA,URINE, ALDOLASE, SPE, CAMILLA SERUM #### [facility] , #### ADDONUAPLUS, T4F, ESR, CMP, CK, CBC, CRP, TSH3 #### [facility] [address] ALP [Catalytic activity/Vol] Alkaline phosphatase [Enzymatic activity/volume] in Serum or Plasma 34-104 [facility] Appearance of UrineOrdered B y: Jesus Ayala on 08-02-2024 Appearance (U) Urine appearance [facility] Aspartate aminotransferase [ Enzymatic activity/volume] in Serum or PlasmaOrdered By: Jesus Ayala on 08-02-2024 AST [Catalytic activity/Vol] 13 U/L Normal [facility] Comment on above: Performed By: #### U PE RAND, CAMILLA,URINE, ALDOLASE, SPE, CAMILLA SERUM #### [facility] , #### ADDONUAPLUS, T4F, ESR, CMP, CK, CBC, CRP, TSH3 #### [facility] [address] AST [Catalytic activity/Vol] Aspartate aminotransferase [Enzymatic activity/volume] in Serum or Plasma [facility] Automated basophil %Ordered By: Jesus Ayala on 08-02-2024 Basophils/100 WBC (Bld) 0.6 % Normal . [facility] Comment on above: Performed By: #### U PE RAND, CAMILLA,URINE, ALDOLASE, SPE, CAMILLA SERUM ####[facility] ,#### ADDONUAPLUS, T4F, ESR, CMP, CK, CBC, CRP, TSH3 ####[facility] Automated basophil countOrde red By: Jesus Ayala on 08-02-2024 Basophils (Bld) [#/Vol] 0.0 10*3/uL Normal 0.0-0.2 [facility] Comment on above: Performed By: #### U PE RAND, CAMILLA,URINE, ALDOLASE, SPE, CAMILLA SERUM ####[facility] ,#### ADDONUAPLUS, T4F, ESR, CMP, CK, CBC, CRP, TSH3 ####[facility] [address] Automated blood monocyte cou ntOrdered By: Jesus Ayala on 08-02-2024 Monocytes (Bld) [#/Vol] 0.4 10*3/uL Normal 0.0-0.8 [facility] Comment on above: Performed By: #### U PE RAND, CAMILLA,URINE, ALDOLASE, SPE, CAMILLA SERUM ####[facility] ,#### ADDONUAPLUS, T4F, ESR, CMP, CK, CBC, CRP, TSH3 ####[address] Automated eosinophil %Ordere d By: Jesus Jamie on 08-02-2024 Eosinophils/100 WBC (Bld) 3.0 % Normal . [facility] Comment on above: Performed By: #### U PE RAND, CAMILLA,URINE, ALDOLASE, SPE, CAMILLA SERUM ####[facility] ,#### ADDONUAPLUS, T4F, ESR, CMP, CK, CBC, CRP, TSH3 ####[address] Automated eosinophil countOr dered By: Jesushelio Ayala on 08-02-2024 Eosinophils (Bld) [#/Vol] 0.2 10*3/uL Normal 0.0-0.45 [facility] Comment on above: Performed By: #### U PE RAND, CAMILLA,URINE, ALDOLASE, SPE, CAMILLA SERUM ####[facility] ,#### ADDONUAPLUS, T4F, ESR, CMP, CK, CBC, CRP, TSH3 ####[address] Automated epithelial cells c ount in urine sediment (number/area)Ordered By: Jesus Ayala on 08-02-2024 Epithelial cells Auto (Urine sed) [#/Area] 5-9 [HPF] High 0-2 [facility] Epithelial cells Auto (Urine sed) [#/Area] Automated epithelial cells count in urine sediment (number/area) High 0-2 [facility] Automated erythrocytes count in urine sediment (number/area)Ordered By: Jesus Ayala on 08-02-2024 RBC Auto (Urine sed) [#/Area] Erythrocytes [#/area] in Urine sediment by Automated count 0-4 [facility] Automated leukocytes count i n urine sediment (number/area)Ordered By: Jesus Ayala on 08-02-2024 WBC Auto (Urine sed) [#/Area] Leukocytes [#/area] in Urine sediment by Automated count 0-4 [facility] Automated monocyte %Ordered By: Jesus Ayala on 08-02-2024 Monocytes/100 WBC (Bld) 4.5 % Normal . [facility] Comment on above: Performed By: #### U PE RAND, CAMILLA,URINE, ALDOLASE, SPE, CAMILLA SERUM ####[facility] ,#### ADDONUAPLUS, T4F, ESR, CMP, CK, CBC, CRP, TSH3 ####[facility] [id number] [place], [place] [address] Automated neutrophil %Ordere d By: Jesus Ayala on 08-02-2024 Neutrophils/100 WBC (Bld) 76.9 % Normal . [facility] Comment on above: Performed By: #### U PE RAND, CAMILLA,URINE, ALDOLASE, SPE, CAMILLA SERUM ####[facility] ,#### ADDONUAPLUS, T4F, ESR, CMP, CK, CBC, CRP, TSH3 ####[facility] [id number] [place], [place] [address] Bacteria [Presence] in Urine by AutomatedOrdered By: Jesus Ayala on 08-02-2024 Bacteria Auto Ql (U) None seen [HPF] None Seen [facility] Basophils Auto (Bld) [#/Vol] Ordered By: Jesus Ayala on 08-02-2024 Basophils (Bld) [#/Vol] Automated basophil count 0.0-0.2 [facility] Basophils/100 WBC Auto (Bld) Ordered By: Jesus Ayala on 08-02-2024 Basophils/100 WBC (Bld) Automated basophil % . [facility] Bilirubin Test strip Ql (U)O rdered By: Jesus Ayala on 08-02-2024 Bilirubin Ql (U) Negative Negative [facility] Bilirubin Ql (U) Bilirubin.total [Presence] in Urine by Test strip Negative [facility] Bilirubin.total [Mass/volume ] in Serum or PlasmaOrdered By: Jesus Ayala on 08-02-2024 Bilirubin [Mass/Vol] 0.3 mg/dL Normal 0.3-1.0 [facility] Comment on above: Performed By: #### U PE RAND, CAMILLA,URINE, ALDOLASE, SPE, CAMILLA SERUM #### [facility] , #### ADDONUAPLUS, T4F, ESR, CMP, CK, CBC, CRP, TSH3 #### [facility] [address] Bilirubin [Mass/Vol] Bilirubin.total [Mass/volume] in Serum or Plasma 0.3-1.0 [facility] C reactive protein [Mass/vol ume] in Serum or PlasmaOrdered By: Jesus Ayala on 08-02-2024 CRP [Mass/Vol] 1.7 mg/dL High 0.0-0.5 [facility] CRP [Mass/Vol] C reactive protein [Mass/volume] in Serum or Plasma High 0.0-0.5 [facility] C-Reactive Proteinon 024 C-Reactive Protein 1.7 mg/dL High 0.0-0.5 [facility] Comment on above: Performed By: #### U PE RAND, CAMILLA,URINE, ALDOLASE, SPE, CAMILLA SERUM #### [facility] , #### ADDONUAPLUS, T4F, ESR, CMP, CK, CBC, CRP, TSH3 #### [facility] [address] [place] [address] [place] CARCINOEMBRYONIC ANTIGENon 1 [facility] CEA ser/plasOrdered By: Gustavo Hinojosa on 08-02-2024 Carcinoembryonic Ag [Mass/Vol] Serum or plasma carcinoembryonic antigen measurement (mass/volume) 0.0-3.0 [facility] Comment on above: Serial tumor marker results determined by assays using different manufacturers or methods may not be comparable.[facility] drawing tender and method:RUSSELL UNICEL DXI, 2 SITE IMMUNOENZYMATIC SANDWICH ASSAY. Calcium [Mass/volume] in Ser um or PlasmaOrdered By: Jesus Ayala on 08-02-2024 Calcium [Mass/Vol] 9.8 mg/dL Normal 8.6-10.3 [facility] Comment on above: Performed By: #### U PE RAND, CAMILLA,URINE, ALDOLASE, SPE, CAMILLA SERUM #### [facility] , #### ADDONUAPLUS, T4F, ESR, CMP, CK, CBC, CRP, TSH3 #### [facility] [address] Calcium [Mass/Vol] Calcium [Mass/volume ] in Serum or Plasma 8.6-10.3 [facility] Cancer Antigen 125on 024 Cancer Antigen 125 12.9 Normal 0.0-38.1 [facility] Comment on above: Result Comment: [facility] [employer] Electrochemiluminescence Immunoassay (ECLIA) Values obtained with different assay methods or kits cannot be used interchangeably. Results cannot be interpreted as absolute evidence of the presence or absence of malignant disease. Performed at: [address] [id number] Data Warehouse Manager: Gabriel Whitman PhD, Phone: [phone] PERFORMED BY: [place] [address] PATHOLOGIST EMBROIDERY WORKER ANAHY MCKEE M.D. Performed By: #### C A125 ####[facility] ,#### CEA ####[facility] [id number] Carbon dioxide, total [Moles /volume] in Serum or PlasmaOrdered By: Jesus Ayala on 08-02-2024 CO2 [Moles/Vol] 24.6 mmol/L Normal 21.0-31.0 [facility] Comment on above: Performed By: #### U PE RAND, CAMILLA,URINE, ALDOLASE, SPE, CAMILLA SERUM #### [facility] , #### ADDONUAPLUS, T4F, ESR, CMP, CK, CBC, CRP, TSH3 #### [facility] [address] CO2 [Moles/Vol] Carbon dioxide, tota l [Moles/volume] in Serum or Plasma 21.0-31.0 [facility] Chloride [Moles/volume] in S aislinn or PlasmaOrdered By: Jesus Ayala on 08-02-2024 Chloride [Moles/Vol] 105 mmol/L Normal 98-107 [facility] Comment on above: Performed By: #### U PE RAND, CAMILLA,URINE, ALDOLASE, SPE, CAMILLA SERUM #### [facility] , #### ADDONUAPLUS, T4F, ESR, CMP, CK, CBC, CRP, TSH3 #### [address] Chloride [Moles/Vol] Chloride [Moles/vol ume] in Serum or Plasma 98-107 [facility] Color Auto (U)Ordered By: Chan Ayala on 08-02-2024 Color (U) Color of Urine by Auto Yellow [facility] Color of Urine by AutoOrdere d By: Jesus Jamie on 08-02-2024 Color (U) Light-yellow Normal Yellow [facility] Comment on above: Order Comment: Name Collection Type:: Clean-Voided Midstream Performed By: #### U PE RAND, CAMILLA,URINE, ALDOLASE, SPE, CAMILLA SERUM #### [facility] , #### ADDONUAPLUS, T4F, ESR, CMP, CK, CBC, CRP, TSH3 #### [facility] [address] [place] [address] Complete Blood Count Auto Di ffon 08-02-2024 Mean Corpuscular HGB Conc 33.5 g/dL Normal 32.0-35.0 [facility] Comment on above: Performed By: #### U PE RAND, CAMILLA,URINE, ALDOLASE, SPE, CAMILLA SERUM ####[facility] ,#### ADDONUAPLUS, T4F, ESR, CMP, CK, CBC, CRP, TSH3 ####[facility] [id number] NRBC% 0.1 /100{WBC} Normal 0-0.5 [facility] Comment on above: Performed By: #### U PE RAND, CAMILLA,URINE, ALDOLASE, SPE, CAMILLA SERUM ####[facility] ,#### ADDONUAPLUS, T4F, ESR, CMP, CK, CBC, CRP, TSH3 ####[facility] Comprehensive Metabolic Pane jonathan 08-02-2024 Albumin [Mass/Vol] 4.3 g/dL Normal 3.5-5.7 [facility] Comment on above: Performed By: #### U PE RAND, CAMILLA,URINE, ALDOLASE, SPE, CAMILLA SERUM #### [facility] , #### ADDONUAPLUS, T4F, ESR, CMP, CK, CBC, CRP, TSH3 #### [facility] [address] GFR/1.73 sq M.predicted MDRD (S/P/Bld) [Vol rate/Area] mL/min/{1.73_m2} Normal [facility] Comment on above: Performed By: #### U PE RAND, CAMILLA,URINE, ALDOLASE, SPE, CAMILLA SERUM #### [facility] , #### ADDONUAPLUS, T4F, ESR, CMP, CK, CBC, CRP, TSH3 #### [facility] [address] Creatine kinase [Enzymatic a ctivity/volume] in Serum or PlasmaOrdered By: Jesus Ayala on 08-02-2024 CK [Catalytic activity/Vol] 39 U/L Normal 30-223 [facility] Comment on above: Result Comment: PERF ORMED BY: [facility] [address] [place] [address] PATHOLOGIST EMBROIDERY WORKER ANAHY MCKEE M.D. Performed By: #### U PE RAND, CAMILLA,URINE, ALDOLASE, SPE, CAMILLA SERUM #### [facility] , #### ADDONUAPLUS, T4F, ESR, CMP, CK, CBC, CRP, TSH3 #### [facility] [address] [place] [address] CK [Catalytic activity/Vol] Creatine kinase [Enzymatic activity/volume] in Serum or Plasma [facility] Creatinine [Mass/volume] in Serum or PlasmaOrdered By: Jesus Ayala on 08-02-2024 Creatinine [Mass/Vol] 1.10 mg/dL Normal 0.60-1.20 [facility] Comment on above: Performed By: #### U PE RAND, CAMILLA,URINE, ALDOLASE, SPE, CAMILLA SERUM #### [facility] , #### ADDONUAPLUS, T4F, ESR, CMP, CK, CBC, CRP, TSH3 #### [facility] [address] [place] [address] Creatinine [Mass/Vol] Creatinine [Mass/v olume] in Serum or Plasma 0.60-1.20 [facility] Dipstick and Microscopicon 1 Bacteria,Urine None Seen Normal None Seen [facility] Comment on above: Order Comment: Name Collection Type:: Clean-Voided Midstream Performed By: #### U PE RAND, CAMILLA,URINE, ALDOLASE, SPE, CAMILLA SERUM #### [facility] , #### ADDONUAPLUS, T4F, ESR, CMP, CK, CBC, CRP, TSH3 #### [facility] [address] [place] [address] [place] Bilirubin,Urine Negative Normal Negative [facility] Comment on above: Order Comment: Name Collection Type:: Clean-Voided Midstream Performed By: #### U PE RAND, CAMILLA,URINE, ALDOLASE, SPE, CAMILLA SERUM #### [facility] , #### ADDONUAPLUS, T4F, ESR, CMP, CK, CBC, CRP, TSH3 #### [address] Glucose Ql (U) 50 mg/dL High Normal [facility] Comment on above: Order Comment: Name Collection Type:: Clean-Voided Midstream Performed By: #### U PE RAND, CAMILLA,URINE, ALDOLASE, SPE, CAMILLA SERUM #### [facility] , #### ADDONUAPLUS, T4F, ESR, CMP, CK, CBC, CRP, TSH3 #### [address] Hyaline Casts,Urine 0-8 Normal 0-8 [facility] Comment on above: Order Comment: Name Collection Type:: Clean-Voided Midstream Result Comment: PERF ORMED BY: [place] [address] PATHOLOGIST EMBROIDERY WORKER ANAHY MCKEE M.D. Performed By: #### U PE RAND, CAMILLA,URINE, ALDOLASE, SPE, CAMILLA SERUM #### [facility] , #### ADDONUAPLUS, T4F, ESR, CMP, CK, CBC, CRP, TSH3 #### [address] Nitrite,Urine Negative Normal Negative [facility] Comment on above: Order Comment: Name Collection Type:: Clean-Voided Midstream Performed By: #### U PE RAND, CAMILLA,URINE, ALDOLASE, SPE, CAMILLA SERUM #### [facility] , #### ADDONUAPLUS, T4F, ESR, CMP, CK, CBC, CRP, TSH3 #### [address] Occult Blood,Urine Negative Normal Negative [facility] Comment on above: Order Comment: Name Collection Type:: Clean-Voided Midstream Performed By: #### U PE RAND, CAMILLA,URINE, ALDOLASE, SPE, CAMILLA SERUM #### [facility] , #### ADDONUAPLUS, T4F, ESR, CMP, CK, CBC, CRP, TSH3 #### [address] Protein,Urine Negative Normal Negative [facility] Comment on above: Order Comment: Name Collection Type:: Clean-Voided Midstream Performed By: #### U PE RAND, CAMILLA,URINE, ALDOLASE, SPE, CAMILLA SERUM #### [facility] , #### ADDONUAPLUS, T4F, ESR, CMP, CK, CBC, CRP, TSH3 #### [address] RBC,Urine 3-4 Normal 0-4 [facility] Comment on above: Order Comment: Name Collection Type:: Clean-Voided Midstream Performed By: #### U PE RAND, CAMILLA,URINE, ALDOLASE, SPE, CAMILLA SERUM #### [facility] , #### ADDONUAPLUS, T4F, ESR, CMP, CK, CBC, CRP, TSH3 #### [address] Specificy Erwin,Urine 1.013 Normal 1.001-1.030 [facility] Comment on above: Order Comment: Name Collection Type:: Clean-Voided Midstream Performed By: #### U PE RAND, CAMILLA,URINE, ALDOLASE, SPE, CAMILLA SERUM #### [facility] , #### ADDONUAPLUS, T4F, ESR, CMP, CK, CBC, CRP, TSH3 #### [address] Squamous Epithelial Cell,Urine 5-9 High 0-2 [facility] Comment on above: Order Comment: Name Collection Type:: Clean-Voided Midstream Performed By: #### U PE RAND, CAMILLA,URINE, ALDOLASE, SPE, CAMILLA SERUM #### [facility] , #### ADDONUAPLUS, T4F, ESR, CMP, CK, CBC, CRP, TSH3 #### [address] [place] [address] [place] Urobilinogen,Urine Normal Normal Normal [facility] Comment on above: Order Comment: Name Collection Type:: Clean-Voided Midstream Performed By: #### U PE RAND, CAMILLA,URINE, ALDOLASE, SPE, CAMILLA SERUM #### [facility] , #### ADDONUAPLUS, T4F, ESR, CMP, CK, CBC, CRP, TSH3 #### [facility] [address] WBC,Urine 3-4 Normal 0-4 [facility] Comment on above: Order Comment: Name Collection Type:: Clean-Voided Midstream Performed By: #### U PE RAND, CAMILLA,URINE, ALDOLASE, SPE, CAMILLA SERUM #### [facility] , #### ADDONUAPLUS, T4F, ESR, CMP, CK, CBC, CRP, TSH3 #### [address] Eosinophils Auto (Bld) [#/Vo l]Ordered By: Jesus Ayala on 08-02-2024 Eosinophils (Bld) [#/Vol] Automated eosinophil count 0.0-0.45 [facility] Eosinophils/100 WBC Auto (Bl d)Ordered By: Jesus Ayala on 08-02-2024 Eosinophils/100 WBC (Bld) Automated eosinophil % . [facility] Erythrocyte Sedimentation Ra mathieu 08-02-2024 ESR (Bld) [Velocity] 73 mm/h High 0-19 [facility] Comment on above: Result Comment: PERF ORMED BY: [place] [address] PATHOLOGIST EMBROIDERY WORKER ANAHY MCKEE M.D. Performed By: #### U PE RAND, CAMILLA,URINE, ALDOLASE, SPE, CAMILLA SERUM ####[facility] ,#### ADDONUAPLUS, T4F, ESR, CMP, CK, CBC, CRP, TSH3 ####[facility] Erythrocyte distribution wid th Auto (RBC) [Ratio]Ordered By: Jesus Ayala on 08-02-2024 Erythrocyte distribution width (RBC) [Ratio] Erythrocyte distribution width [Ratio] by Automated count High 11.9-15.3 [facility] Erythrocyte distribution wid th [Ratio] by Automated countOrdered By: Jesus Ayala on 08-02-2024 Erythrocyte distribution width (RBC) [Ratio] 15.7 % High 11.9-15.3 [facility] Comment on above: Performed By: #### U PE RAND, CAMILLA,URINE, ALDOLASE, SPE, CAMILLA SERUM ####[facility] ,#### ADDONUAPLUS, T4F, ESR, CMP, CK, CBC, CRP, TSH3 ####[facility] [id number] Erythrocyte sedimentation ra te by Photometric methodOrdered By: Jesus Ayala on 08-02-2024 ESR Photometric method (Bld) [Velocity] 73 mm/hr High 0-19 [facility] ESR Photometric method (Bld) [Velocity] Erythrocyte sedimentation rate by Photometric method High 0-19 [facility] Erythrocytes [#/area] in Uri ne sediment by Automated countOrdered By: Jesus Ayala on 08-02-2024 RBC Auto (Urine sed) [#/Area] 3-4 [HPF] 0-4 [facility] Erythrocytes [#/volume] in B lood by Automated countOrdered By: Jesus Ayala on 08-02-2024 RBC (Bld) [#/Vol] 4.37 10*6/uL Normal 3.60-5.00 [facility] Comment on above: Performed By: #### U PE RAND, CAMILLA,URINE, ALDOLASE, SPE, CAMILLA SERUM ####[facility] ,#### ADDONUAPLUS, T4F, ESR, CMP, CK, CBC, CRP, TSH3 ####[facility] [id number] Globulin Calc (S) [Mass/Vol] Ordered By: Jesus Ayala on 08-02-2024 Globulin (S) [Mass/Vol] Serum globulin measurement by calculation (mass/volume) [facility] Glucose [Mass/volume] in Ser um or PlasmaOrdered By: Jesus Ayala on 08-02-2024 Glucose [Mass/Vol] 146 mg/dL High 70-100 [facility] Comment on above: ADA recommended refe rence rangeRandom Glucose Reference Range is dependent on time and content of last meal. Glucose of more than 200 mg/dL in a nonstressed, ambulatory subject supports the diagnosis of Diabetes Mellitus. Result Comment: Morenci om Glucose Reference Range is dependent on time and content of last meal. Glucose of more than 200 mg/dL in a nonstressed, ambulatory subject supports the diagnosis of Diabetes Mellitus. ADA recommended reference range Performed By: #### U PE RAND, CAMILLA,URINE, ALDOLASE, SPE, CAMILLA SERUM #### [facility] , #### ADDONUAPLUS, T4F, ESR, CMP, CK, CBC, CRP, TSH3 #### [facility] [address] Glucose [Mass/Vol] Glucose [Mass/volume ] in Serum or Plasma High 70-100 [facility] Comment on above: ADA recommended refe rence rangeRandom Glucose Reference Range is dependent on time and content of last meal. Glucose of more than 200 mg/dL in a nonstressed, ambulatory subject supports the diagnosis of Diabetes Mellitus. Glucose [Mass/volume] in Uri ne by Test stripOrdered By: Jesus Ayala on 08-02-2024 Glucose Test strip (U) [Mass/Vol] 50 mg/dL [facility] Normal [facility] Glucose Test strip (U) [Mass/Vol] Glucose [Mass/volume] in Urine by Test strip [facility] Hematocrit Auto (Bld) [Volum e fraction]Ordered By: Jesus Ayala on 08-02-2024 Hematocrit (Bld) [Volume fraction] Hematocrit [Volume Fraction] of Blood by Automated count 34.0-46.4 [facility] Hematocrit [Volume Fraction] of Blood by Automated countOrdered By: Jesus Ayala on 08-02-2024 Hematocrit (Bld) [Volume fraction] 37.0 % Normal 34.0-46.4 [facility] Comment on above: Performed By: #### U PE RAND, CAMILLA,URINE, ALDOLASE, SPE, CAMILLA SERUM ####[facility] ,#### ADDONUAPLUS, T4F, ESR, CMP, CK, CBC, CRP, TSH3 ####[facility] [place] [address] [facility] Hemoglobin Test strip Ql (U) Ordered By: Jesus Ayala on 08-02-2024 Hemoglobin Ql (U) Negative Negative [facility] Hemoglobin Ql (U) Hemoglobin [Presence ] in Urine by Test strip Negative [facility] Hemoglobin [Mass/volume] in BloodOrdered By: Jesus Ayala on 08-02-2024 Hemoglobin (Bld) [Mass/Vol] 12.4 g/dL Normal 11.8-15.4 [facility] Comment on above: Performed By: #### U PE RAND, CAMILLA,URINE, ALDOLASE, SPE, CAMILLA SERUM ####[facility] ,#### ADDONUAPLUS, T4F, ESR, CMP, CK, CBC, CRP, TSH3 ####[place] [id number] [facility] Hemoglobin (Bld) [Mass/Vol] Hemoglobin [Mass/volume] in Blood 11.8-15.4 [facility] Immunofixation for UrineOrde red By: Jesus Ayala on 08-02-2024 Interpretation Immunofixation (U) [Interp] Immunofixation for Urine . [facility] Comment on above: No monoclonality det ected.Performed at: [facility] [address] [id number] Director: Gabriel Whitman PhD, Phone: [phone] Immunofixation, (CAMILLA), Urine on 08-02-2024 Immunofixation, (CAMILLA), Urine Comment Normal . [facility] Comment on above: Result Comment: No m onoclonality detected. Performed at: [facility] [address] [id number] Data Warehouse Manager: Gabriel Whitman PhD, Phone: [phone] Performed By: #### U PE RAND, CAMILLA,URINE, ALDOLASE, SPE, CAMILLA SERUM ####[facility] ,#### ADDONUAPLUS, T4F, ESR, CMP, CK, CBC, CRP, TSH3 ####[place] [id number] [facility] Immunofixation,Serumon 08-02 Immunofixation, Serum Comment Normal . [facility] Comment on above: Result Comment: No m onoclonality detected. Performed By: #### U PE RAND, CAMILLA,URINE, ALDOLASE, SPE, CAMILLA SERUM ####[facility] ,#### ADDONUAPLUS, T4F, ESR, CMP, CK, CBC, CRP, TSH3 ####[place] [id number] [address] Immunoglobulin A, Serum 136 mg/dL Normal 87-352 [facility] Comment on above: Performed By: #### U PE RAND, CAMILLA,URINE, ALDOLASE, SPE, CAMILLA SERUM ####[facility] ,#### ADDONUAPLUS, T4F, ESR, CMP, CK, CBC, CRP, TSH3 ####[place] [id number] [facility] Immunoglobulin G 1357 mg/dL Normal [phone] [facility] Comment on above: Performed By: #### U PE RAND, CAMILLA,URINE, ALDOLASE, SPE, ACMILLA SERUM ####[facility] ,#### ADDONUAPLUS, T4F, ESR, CMP, CK, CBC, CRP, TSH3 ####[place] [id number] [facility] Immunoglobulin M, Serum 94 mg/dL Normal 26-217 [facility] Comment on above: Result Comment: Perf ormed at: - [facility] [address] [id number] Data Warehouse Manager: Gabriel Whitman PhD, Phone: [phone] Performed By: #### U PE RAND, CAMILLA,URINE, ALDOLASE, SPE, CAMILLA SERUM ####[facility] ,#### ADDONUAPLUS, T4F, ESR, CMP, CK, CBC, CRP, TSH3 ####[facility] Ketones Test strip Ql (U)Ord ered By: Jesus Ayala on 08-02-2024 Ketones Ql (U) Ketones [Presence] i n Urine by Test strip Negative [facility] Ketones [Presence] in Urine by Test stripOrdered By: Jesus Ayala on 08-02-2024 Ketones Ql (U) Negative Normal Negative [facility] Comment on above: Order Comment: Name Collection Type:: Clean-Voided Midstream Performed By: #### U PE RAND, CAMILLA,URINE, ALDOLASE, SPE, CAMILLA SERUM #### [facility] , #### ADDONUAPLUS, T4F, ESR, CMP, CK, CBC, CRP, TSH3 #### [facility] [address] [place] [address] Laboratory - UrinalysisOrder ed By: Jesus Ayala on 08-02-2024 Hyaline casts LM Ql (Urine sed) 0-8 [LPF] 0-8 [facility] Leukocyte esterase [Presence ] in Urine by Test stripOrdered By: Jesus Ayala on 08-02-2024 Leukocyte esterase Test strip Ql (U) Negative Normal Negative [facility] Comment on above: Order Comment: Name Collection Type:: Clean-Voided Midstream Performed By: #### U PE RAND, CAMILLA,URINE, ALDOLASE, SPE, CAMILLA SERUM #### [facility] , #### ADDONUAPLUS, T4F, ESR, CMP, CK, CBC, CRP, TSH3 #### [facility] [address] [place] [address] Leukocyte esterase Test strip Ql (U) Leukocyte esterase [Presence] in Urine by Test strip Negative [facility] Leukocytes [#/area] in Urine sediment by Automated countOrdered By: Jesus Gruberrow on 08-02-2024 WBC Auto (Urine sed) [#/Area] 3-4 [HPF] 0-4 [facility] Leukocytes [#/volume] correc noah for nucleated erythrocytes in Blood by Automated counOrdered By: Jesus Ayala on 08-02-2024 WBC corrected for nucl RBC Auto (Bld) [#/Vol] 7.8 10*3/uL 3.8-11.6 [facility] WBC corrected for nucl RBC Auto (Bld) [#/Vol] Leukocytes [#/volume] corrected for nucleated erythrocytes in Blood by Automated coun 3.8-11.6 [facility] Leukocytes [#/volume] in Blo od by Automated countOrdered By: Jesus Gruberrow on 08-02-2024 WBC (Bld) [#/Vol] 7.8 10*3/uL Normal 3.8-11.6 [facility] Comment on above: Performed By: #### U PE RAND, CAMILLA,URINE, ALDOLASE, SPE, CAMILLA SERUM ####[facility] ,#### ADDONUAPLUS, T4F, ESR, CMP, CK, CBC, CRP, TSH3 ####[place] [id number] [address] Lymphocytes Auto (Bld) [#/Vo l]Ordered By: Jesus Ayala on 08-02-2024 Lymphocytes (Bld) [#/Vol] Lymphocytes [#/volume] in Blood by Automated count 1.00-4.8 [facility] Lymphocytes [#/volume] in Bl ood by Automated countOrdered By: Jesushelio Ayala on 08-02-2024 Lymphocytes (Bld) [#/Vol] 1.2 10*3/uL Normal 1.00-4.8 [facility] Comment on above: Performed By: #### U PE RAND, CAMILLA,URINE, ALDOLASE, SPE, CAMILLA SERUM ####[facility] ,#### ADDONUAPLUS, T4F, ESR, CMP, CK, CBC, CRP, TSH3 ####[place] [id number] [address] Lymphocytes/100 WBC Auto (Bl d)Ordered By: Jesus Ayala on 08-02-2024 Lymphocytes/100 WBC (Bld) Lymphocytes/100 leukocytes in Blood by Automated count . [facility] Lymphocytes/100 leukocytes i n Blood by Automated countOrdered By: Jesus Ayala on 08-02-2024 Lymphocytes/100 WBC (Bld) 15.0 % Normal . [facility] Comment on above: Performed By: #### U PE RAND, CAMILLA,URINE, ALDOLASE, SPE, CAMILLA SERUM ####[facility] ,#### ADDONUAPLUS, T4F, ESR, CMP, CK, CBC, CRP, TSH3 ####[facility] [id number] MCH Auto (RBC) [Entitic mass ]Ordered By: Jesus Ayala on 08-02-2024 MCH (RBC) [Entitic mass] MCH [Entitic mass] by Automated count 24.7-34.3 [facility] MCH [Entitic mass] by Automa noah countOrdered By: Jesus Ayala on 08-02-2024 MCH (RBC) [Entitic mass] 28.3 pg Normal 24.7-34.3 [facility] Comment on above: Performed By: #### U PE RAND, CAMILLA,URINE, ALDOLASE, SPE, CAMILLA SERUM ####[facility] ,#### ADDONUAPLUS, T4F, ESR, CMP, CK, CBC, CRP, TSH3 ####[facility] [id number] [address] MCHC Auto (RBC) [Mass/Vol]Or dered By: Jesus Ayala on 08-02-2024 MCHC (RBC) [Mass/Vol] 33.5 g/dL 32.0-35.0 [facility] MCHC (RBC) [Mass/Vol] MCHC [Mass/volume] by Automated count 32.0-35.0 [facility] MCV Auto (RBC) [Entitic vol] Ordered By: Jesus Ayala on 08-02-2024 MCV (RBC) [Entitic vol] MCV [Entitic vol ume] by Automated count 80-100 [facility] MCV [Entitic volume] by Auto mated countOrdered By: Jesus Jamie on 08-02-2024 MCV (RBC) [Entitic vol] 84.6 fL Normal 80-100 [facility] Comment on above: Performed By: #### U PE RAND, CAMILLA,URINE, ALDOLASE, SPE, CAMILLA SERUM ####[facility] ,#### ADDONUAPLUS, T4F, ESR, CMP, CK, CBC, CRP, TSH3 ####[facility] [id number] [address] Monocytes Auto (Bld) [#/Vol] Ordered By: Jesus Ayala on 08-02-2024 Monocytes (Bld) [#/Vol] Automated blood monocyte count 0.0-0.8 [facility] Monocytes/100 WBC Auto (Bld) Ordered By: Jesus Ayala on 08-02-2024 Monocytes/100 WBC (Bld) Automated monocyte % . [facility] Neutrophils Auto (Bld) [#/Vo l]Ordered By: Jesus Ayala on 08-02-2024 Neutrophils (Bld) [#/Vol] Neutrophils [#/volume] in Blood by Automated count 1.8-7.7 [facility] Neutrophils [#/volume] in Bl ood by Automated countOrdered By: Jesus Ayala on 08-02-2024 Neutrophils (Bld) [#/Vol] 6.0 10*3/uL Normal 1.8-7.7 [facility] Comment on above: Performed By: #### U PE RAND, CAMILLA,URINE, ALDOLASE, SPE, CAMILLA SERUM ####[facility] ,#### ADDONUAPLUS, T4F, ESR, CMP, CK, CBC, CRP, TSH3 ####[facility] [id number] [address] Neutrophils/100 WBC Auto (Bl d)Ordered By: Jesus Ayala on 08-02-2024 Neutrophils/100 WBC (Bld) Automated neutrophil % . [facility] Nitrite Test strip Ql (U)Ord ered By: Jesus Ayala on 08-02-2024 Nitrite Ql (U) Negative Negative [facility] Nitrite Ql (U) Nitrite [Presence] i n Urine by Test strip Negative [facility] No Panel InformationOrdered By: Jesus Gruberrow on 08-02-2024 Estimated GFR (CKD-EPI) > 60.0 mL/Min [facility] Creatinine Clearance (Chem N/A [facility] Protein Electrophoresis M-Maury Not observed g/dL Not Observed [facility] Protein Electrophoresis Note Comment . [facility] Comment on above: Protein electrophore sis scan will follow via computer,mail, or sheriffs delivery.Performed at: [place] [id number] Director: Gabriel Whitman PhD, Phone: [phone] Urine Random Prot Electrophor Note Comment . [facility] Comment on above: Protein electrophore sis scan will follow via computer,mail, or sheriffs delivery. Nucleated erythrocytes [Pres ence] in Blood by Automated countOrdered By: Jesus Ayala on 08-02-2024 Nucleated RBC Auto Ql (Bld) 0.1 /100{WBC} 0-0.5 [facility] Nucleated RBC Auto Ql (Bld) Nucleated erythrocytes [Presence] in Blood by Automated count 0-0.5 [facility] Platelet mean volume Auto (B ld) [Entitic vol]Ordered By: Jesus Ayala on 08-02-2024 Platelet mean volume (Bld) [Entitic vol] Platelet mean volume [Entitic volume] in Blood by Automated count 6.3-10.7 [facility] Platelet mean volume [Entiti c volume] in Blood by Automated countOrdered By: Jesus Ayala on 08-02-2024 Platelet mean volume (Bld) [Entitic vol] 6.6 fL Normal 6.3-10.7 [facility] Comment on above: Performed By: #### U PE RAND, CAMILLA,URINE, ALDOLASE, SPE, CAMILLA SERUM ####[facility] ,#### ADDONUAPLUS, T4F, ESR, CMP, CK, CBC, CRP, TSH3 ####[facility] [id number] [address] Platelets Auto (Bld) [#/Vol] Ordered By: Jesus Ayala on 08-02-2024 Platelets (Bld) [#/Vol] Platelets [#/vol ume] in Blood by Automated count 150-450 [facility] Platelets [#/volume] in Bloo d by Automated countOrdered By: Jesus Ayala on 08-02-2024 Platelets (Bld) [#/Vol] 439 10*3/uL Normal 150-450 [facility] Comment on above: Performed By: #### U PE RAND, CAMILLA,URINE, ALDOLASE, SPE, CAMILLA SERUM ####[facility] ,#### ADDONUAPLUS, T4F, ESR, CMP, CK, CBC, CRP, TSH3 ####[facility] [id number] [address] Potassium [Moles/volume] in Serum or PlasmaOrdered By: Jesus Ayala on 08-02-2024 Potassium [Moles/Vol] 3.8 mmol/L Normal 3.5-5.1 [facility] Comment on above: Performed By: #### U PE RAND, CAMILLA,URINE, ALDOLASE, SPE, CAMILLA SERUM #### [facility] , #### ADDONUAPLUS, T4F, ESR, CMP, CK, CBC, CRP, TSH3 #### [facility] [address] Potassium [Moles/Vol] Potassium [Moles/v olume] in Serum or Plasma 3.5-5.1 [facility] Protein Electro, Random Urin yonis 08-02-2024 Albumin, Urine 36.1 % Normal . [facility] Comment on above: Performed By: #### U PE RAND, CAMILLA,URINE, ALDOLASE, SPE, CAMILLA SERUM ####[facility] ,#### ADDONUAPLUS, T4F, ESR, CMP, CK, CBC, CRP, TSH3 ####[facility] [id number] Piutb-1-Yfxfmnaw, Urine 4.1 % Normal . T [facility] Comment on above: Performed By: #### U PE RAND, CAMILLA,URINE, ALDOLASE, SPE, CAMILLA SERUM ####[facility] ,#### ADDONUAPLUS, T4F, ESR, CMP, CK, CBC, CRP, TSH3 ####[address] Jynrb-9-Gnplokqc, Urine 18.4 % Normal . [facility] Comment on above: Performed By: #### U PE RAND, CAMILLA,URINE, ALDOLASE, SPE, CAMILLA SERUM ####[facility] ,#### ADDONUAPLUS, T4F, ESR, CMP, CK, CBC, CRP, TSH3 ####[address] Beta Globulin, Urine 24.3 % Normal . [facility] Comment on above: Performed By: #### U PE RAND, CAMILLA,URINE, ALDOLASE, SPE, CAMILLA SERUM ####[facility] ,#### ADDONUAPLUS, T4F, ESR, CMP, CK, CBC, CRP, TSH3 ####[address] Gamma Globulin, Urine 17.1 % Normal . [facility] Comment on above: Performed By: #### U PE RAND, CAMILLA,URINE, ALDOLASE, SPE, CAMILLA SERUM ####[facility] ,#### ADDONUAPLUS, T4F, ESR, CMP, CK, CBC, CRP, TSH3 ####[address] M-Maury % Not Observed Normal Not Observed [facility] Comment on above: Performed By: #### U PE RAND, CAMILLA,URINE, ALDOLASE, SPE, CAMILLA SERUM ####[facility] ,#### ADDONUAPLUS, T4F, ESR, CMP, CK, CBC, CRP, TSH3 ####[address] [place] [address] [facility] Please Note: Comment Normal . [facility] Comment on above: Result Comment: Prot ein electrophoresis scan will follow via computer, mail, or sheriffs delivery. PERFORMED BY: [facility] [address] [place] [address] PATHOLOGIST EMBROIDERY WORKER ANAHY MCKEE M.D. Performed By: #### U PE RAND, CAMILLA,URINE, ALDOLASE, SPE, CAMILLA SERUM ####[facility] ,#### ADDONUAPLUS, T4F, ESR, CMP, CK, CBC, CRP, TSH3 ####[address] Protein (U) [Mass/Vol] 9.0 mg/dL Normal Not Estab. [facility] Comment on above: Performed By: #### U PE RAND, CAMILLA,URINE, ALDOLASE, SPE, CAMILLA SERUM ####[facility] ,#### ADDONUAPLUS, T4F, ESR, CMP, CK, CBC, CRP, TSH3 ####[address] Protein Electrophoresis, Ser umon 08-02-2024 Albumin [Mass/Vol] 3.9 g/dL Normal 2.9-4.4 [facility] Comment on above: Performed By: #### U PE RAND, CAMILLA,URINE, ALDOLASE, SPE, CAMILLA SERUM ####[facility] ,#### ADDONUAPLUS, T4F, ESR, CMP, CK, CBC, CRP, TSH3 ####[place] [id number] [facility] Albumin/Globulin [Mass ratio] 1.1 {ratio} Normal 0.7-1.7 [facility] Comment on above: Performed By: #### U PE RAND, CAMILLA,URINE, ALDOLASE, SPE, CAMILLA SERUM ####[facility] ,#### ADDONUAPLUS, T4F, ESR, CMP, CK, CBC, CRP, TSH3 ####[address] Ipxfi-6-Hypjwpqb 0.2 g/dL Normal 0.0-0.4 [facility] Comment on above: Performed By: #### U PE RAND, CAMILLA,URINE, ALDOLASE, SPE, CAMILLA SERUM ####[facility] ,#### ADDONUAPLUS, T4F, ESR, CMP, CK, CBC, CRP, TSH3 ####[address] Oodxn-7-Mwkzvmmo 1.0 g/dL Normal 0.4-1.0 [facility] Comment on above: Performed By: #### U PE RAND, CAMILLA,URINE, ALDOLASE, SPE, CAMILLA SERUM ####[facility] ,#### ADDONUAPLUS, T4F, ESR, CMP, CK, CBC, CRP, TSH3 ####[address] Beta Globulin 1.2 g/dL Normal 0.7-1.3 [facility] Comment on above: Performed By: #### U PE RAND, CAMILLA,URINE, ALDOLASE, SPE, CAMILLA SERUM ####[facility] ,#### ADDONUAPLUS, T4F, ESR, CMP, CK, CBC, CRP, TSH3 ####[address] Gamma Globulin 1.3 g/dL Normal 0.4-1.8 [facility] Comment on above: Performed By: #### U PE RAND, CAMILLA,URINE, ALDOLASE, SPE, CAMILLA SERUM ####[facility] ,#### ADDONUAPLUS, T4F, ESR, CMP, CK, CBC, CRP, TSH3 ####[address] Globulin (S) [Mass/Vol] 3.6 g/dL Normal 2.2-3.9 [facility] Comment on above: Performed By: #### U PE RAND, CAMILLA,URINE, ALDOLASE, SPE, CAMILLA SERUM ####[facility] ,#### ADDONUAPLUS, T4F, ESR, CMP, CK, CBC, CRP, TSH3 ####[place] [id number] [address] M-Maury Not Observed Normal Not Observed [facility] Comment on above: Performed By: #### U PE RAND, CAMILLA,URINE, ALDOLASE, SPE, CAMILLA SERUM ####[facility] ,#### ADDONUAPLUS, T4F, ESR, CMP, CK, CBC, CRP, TSH3 ####[address] SPE-Note Comment Normal . [facility] Comment on above: Result Comment: Prot ein electrophoresis scan will follow via computer, mail, or sheriffs delivery. Performed at: [facility] [address] [id number] Data Warehouse Manager: Gabriel Whitman PhD, Phone: [phone] PERFORMED BY: [facility] [address] [place] [address] PATHOLOGIST EMBROIDERY WORKER ANAHY MCKEE M.D. Performed By: #### U PE RAND, CAMILLA,URINE, ALDOLASE, SPE, CAMILLA SERUM ####[facility] ,#### ADDONUAPLUS, T4F, ESR, CMP, CK, CBC, CRP, TSH3 ####[address] Protein Test strip (U) [Mass /Vol]Ordered By: Jesus Ayala on 08-02-2024 Protein (U) [Mass/Vol] Negative Negative [facility] Protein (U) [Mass/Vol] Protein [Mass/vol ume] in Urine by Test strip Negative [facility] Protein [Mass/volume] in Ser um or PlasmaOrdered By: Jesus Ayala on 08-02-2024 Protein [Mass/Vol] 7.5 g/dL Normal 6.0-8.5 [facility] Comment on above: Performed By: #### U PE RAND, CAMILLA,URINE, ALDOLASE, SPE, CAMILLA SERUM #### [facility] , #### ADDONUAPLUS, T4F, ESR, CMP, CK, CBC, CRP, TSH3 #### [facility] [address] Performed By: #### U PE RAND, CAMILLA,URINE, ALDOLASE, SPE, CAMILLA SERUM ####[facility] ,#### ADDONUAPLUS, T4F, ESR, CMP, CK, CBC, CRP, TSH3 ####[facility] [id number] Protein [Mass/Vol] Protein [Mass/volume ] in Serum or Plasma 6.0-8.5 [facility] RBC Auto (Bld) [#/Vol]Ordere d By: Jesus Ayala on 08-02-2024 RBC (Bld) [#/Vol] Erythrocytes [#/volu me] in Blood by Automated count 3.60-5.00 [facility] Serum aldolase measurementOr dered By: Jesus Ayala on 08-02-[address] biopsy 3.3-10.3 [facility] Comment on above: Performed at: - [address] [id number] Director: Gabrile Whitman PhD, Phone: [phone] Serum globulin measurement ( mass/volume)Ordered By: Jesus Ayala on 08-02-2024 Globulin (S) [Mass/Vol] Serum globulin measurement (mass/volume) 2.2-3.9 [facility] Serum globulin measurement b y calculation (mass/volume)Ordered By: Jesus Ayala on 08-02-2024 Globulin (S) [Mass/Vol] 3.2 g/dL Normal F [facility] Comment on above: Performed By: #### U PE RAND, CAMILLA,URINE, ALDOLASE, SPE, CAMILLA SERUM #### [facility] , #### ADDONUAPLUS, T4F, ESR, CMP, CK, CBC, CRP, TSH3 #### [facility] [address] Serum immunofixation electro phoresisOrdered By: Jesus Ayala on 08-02-2024 Serum Immunofixation Comment . [facility] Comment on above: No monoclonality det ected. Serum or plasma IgA measurem ent (mass/volume)Ordered By: Jesus Ayala on 08-02-2024 IgA [Mass/Vol] IgA [Mass/volume] in Serum or Plasma [phone] [facility] Serum or plasma IgG measurem ent (mass/volume)Ordered By: Jesus Ayala on 08-02-2024 IgG [Mass/Vol] IgG [Mass/volume] in Serum or Plasma [phone] [facility] Serum or plasma IgM measurem ent (mass/volume)Ordered By: Jesus Ayala on 08-02-2024 IgM [Mass/Vol] IgM [Mass/volume] in Serum or Plasma 26-217 [facility] Comment on above: Performed at: [place] [id number] Director: Gabriel Whitman PhD, Phone: [phone] Serum or plasma albumin ge urement (mass/volume)Ordered By: Jesus Ayala on 08-02-2024 Albumin [Mass/Vol] Albumin [Mass/volume ] in Serum or Plasma 2.9-4.4 [facility] Serum or plasma albumin/glob ulin mass ratioOrdered By: Jesus Ayala on 08-02-2024 Albumin/Globulin [Mass ratio] 1.3 {ratio} Normal [facility] Comment on above: Performed By: #### U PE RAND, CAMILLA,URINE, ALDOLASE, SPE, CAMILLA SERUM #### [facility] , #### ADDONUAPLUS, T4F, ESR, CMP, CK, CBC, CRP, TSH3 #### [facility] [address] Albumin/Globulin [Mass ratio] Serum or plasma albumin/globulin mass ratio 0.7-1.7 [facility] Serum or plasma alpha 1 glob ulin measurement by electrophoresis (mass/volume)Ordered By: Jesus Ayala on 08-02-2024 Alpha 1 globulin Elph [Mass/Vol] Serum or plasma alpha 1 globulin measurement by electrophoresis (mass/volume) 0.0-0.4 [facility] Serum or plasma alpha 2 glob ulin measurement by electrophoresis (mass/volume)Ordered By: Jesus Ayala on 08-02-2024 Alpha 2 globulin Elph [Mass/Vol] Serum or plasma alpha 2 globulin measurement by electrophoresis (mass/volume) 0.4-1.0 [facility] Serum or plasma anion gap de terminationOrdered By: Jesus Ayala on 08-02-2024 Anion gap [Moles/Vol] 12.2 mmol/L Normal 6.0-15.0 [facility] Comment on above: Performed By: #### U PE RAND, CAMILLA,URINE, ALDOLASE, SPE, CAMILLA SERUM #### [facility] , #### ADDONUAPLUS, T4F, ESR, CMP, CK, CBC, CRP, TSH3 #### [facility] [address] Anion gap [Moles/Vol] Serum or plasma an ion gap determination 6.0-15.0 [facility] Serum or plasma beta globuli n measurement by electrophoresis (mass/volume)Ordered By: Jesus Gruberrow on 08-02-2024 Beta globulin Elph [Mass/Vol] Serum or plasma beta globulin measurement by electrophoresis (mass/volume) 0.7-1.3 [facility] Serum or plasma cancer antig en 125 (CA-125) measurement (units/volume)Ordered By: Blake Hinojosa on 08-02-2024 Cancer Ag 125 Qn Serum or plasma canc er antigen 125 (CA-125) measurement (units/volume) 0.0-38.1 [facility] Comment on above: [facility] El ectrochemiluminescence Immunoassay(ECLIA)Values obtained with different assay methods or kits cannotbe used interchangeably. Results cannot be interpreted asabsolute evidence of the presence or absence of malignantdisease.Performed at: [facility] [employer] [id number] Director: Gabriel Whitman PhD, Phone: [phone] Serum or plasma carcinoembry onic antigen measurement (mass/volume)Ordered By: Blake Hinojsoa on 08-02-2024 Carcinoembryonic Ag [Mass/Vol] 1.0 ng/mL 0.0-3.0 [facility] Comment on above: Serial tumor marker results determined by assays using different manufacturers or methods may not be comparable.[facility] drawing tender and method:RUSSELL UNICEL DXI, 2 SITE IMMUNOENZYMATIC SANDWICH ASSAY. Serum or plasma gamma globul in measurement by electrophoresis (mass/volume)Ordered By: Jesus Ayala on 08-02-2024 Gamma globulin Elph [Mass/Vol] Serum or plasma gamma globulin measurement by electrophoresis (mass/volume) 0.4-1.8 [facility] Sodium [Moles/volume] in Ser um or PlasmaOrdered By: Jesus Ayala on 08-02-2024 Sodium [Moles/Vol] 138 mmol/L Normal 136-145 [facility] Comment on above: Performed By: #### U PE RAND, CAMILLA,URINE, ALDOLASE, SPE, CAMILLA SERUM #### [facility] , #### ADDONUAPLUS, T4F, ESR, CMP, CK, CBC, CRP, TSH3 #### [address] Sodium [Moles/Vol] Sodium [Moles/volume ] in Serum or Plasma 136-145 [facility] Specific gravity Test strip (U) [Rel density]Ordered By: Jesus Ayala on 08-02-2024 Specific gravity (U) [Rel density] 1.013 1.001-1.030 [facility] Specific gravity (U) [Rel density] Specific gravity of Urine by Test strip 1.001-1.030 [facility] Thyrotropin [Units/volume] i n Serum or PlasmaOrdered By: Jesus Ayala on 08-02-2024 TSH Qn 2.77 m[IU]/L Normal 0.45-5.33 [facility] Comment on above: Result Comment: PERF ORMED BY: [facility] [address] [place] [address] PATHOLOGIST EMBROIDERY WORKER ANAHY MCKEE M.D. Performed By: #### U PE RAND, CAMILLA,URINE, ALDOLASE, SPE, CAMILAL SERUM #### [facility] , #### ADDONUAPLUS, T4F, ESR, CMP, CK, CBC, CRP, TSH3 #### [address] TSH Qn Thyrotropin [Units/volume] in Serum or Plasma 0.45-5.33 [facility] Thyroxine (T4) free [Mass/vo lume] in Serum or PlasmaOrdered By: Jeuss Ayala on 08-02-2024 Free T4 [Mass/Vol] 0.68 ng/dL Normal 0.61-1.12 [facility] Comment on above: Performed By: #### U PE RAND, CAMILLA,URINE, ALDOLASE, SPE, CAMILLA SERUM #### [facility] , #### ADDONUAPLUS, T4F, ESR, CMP, CK, CBC, CRP, TSH3 #### [address] Free T4 [Mass/Vol] Thyroxine (T4) free [Mass/volume] in Serum or Plasma 0.61-1.12 [facility] Urea nitrogen [Mass/volume] in Serum or PlasmaOrdered By: Jesus Ayala on 08-02-2024 Urea nitrogen [Mass/Vol] 14 mg/dL Normal 04-29 [facility] Comment on above: Performed By: #### U PE RAND, CAMILLA,URINE, ALDOLASE, SPE, CAMILLA SERUM #### [facility] , #### ADDONUAPLUS, T4F, ESR, CMP, CK, CBC, CRP, TSH3 #### [place] [address] [place] Urea nitrogen [Mass/Vol] Urea nitrogen [Mass/volume] in Serum or Plasma 04-29 [facility] Urine alpha 1 globulin/total protein by electrophoresisOrdered By: Jesus Ayala on 08-02-2024 Alpha 1 globulin Elph (U) [Mass fraction] Urine alpha 1 globulin/total protein by electrophoresis . [facility] Urine alpha 2 globulin/total protein ratio by electrophoresisOrdered By: Jesus Ayala on 08-02-2024 Alpha 2 globulin Elph (U) [Mass fraction] Urine alpha 2 globulin/total protein ratio by electrophoresis . [facility] Urine appearanceOrdered By: Jesus Ayala on 08-02-2024 Appearance (U) Clear Normal Clear [facility] Comment on above: Order Comment: Name Collection Type:: Clean-Voided Midstream Performed By: #### U PE RAND, CAMILLA,URINE, ALDOLASE, SPE, CAMILLA SERUM #### [facility] , #### ADDONUAPLUS, T4F, ESR, CMP, CK, CBC, CRP, TSH3 #### [address] Urine bacteria detection by automated methodOrdered By: Jesus Ayala on 08-02-2024 Bacteria Auto Ql (U) Bacteria [Presence] in Urine by Automated None Seen [facility] Urine beta globulin measurem ent by electrophoresis (mass/volume)Ordered By: Jesus Ayala on 08-02-2024 Beta globulin Elph (U) [Mass/Vol] Urine beta globulin measurement by electrophoresis (mass/volume) . [facility] Urine protein measurement (m ass/volume)Ordered By: Jesus Ayala on 08-02-2024 Protein (U) [Mass/Vol] Protein [Mass/vol ume] in Urine Not Estab. [facility] Urobilinogen Test strip (U) [Mass/Vol]Ordered By: Jesus Ayala on 08-02-2024 Urobilinogen (U) [Mass/Vol] Normal mg/dL Normal [facility] Urobilinogen (U) [Mass/Vol] Urobilinogen [Mass/volume] in Urine by Test strip Normal [facility] WBC Auto (Bld) [#/Vol]Ordere d By: Jesus Ayala on 08-02-2024 WBC (Bld) [#/Vol] Leukocytes [#/volume ] in Blood by Automated count 3.8-11.6 [facility] XR chest 2V*on 08-02-2024 XR chest 2V* [facility] [facility] [place] [address] [place] [address] XRay Report Signed Patient: Mandeep Puri MR#: [id number] 15 : 1975 Acct:[id number] Age/Sex: 48 / F ADM Date: 08/02/24 Loc: XD Room: Type: [facility] Attending Dr: Jesus Ayala MD Copies to: [...] Trupti Adorno M.D.08/02/2024 4:18 PM Dictation Location: [place] [address] Transcribed By: [facility] 08/02/241617 Dictated By: Trupti Adorno MD 08/02/241616 Signed By: 08/02/241617 Normal [facility] pH Test strip (U)Ordered By: Jesus Ayala on 08-02-2024 pH (U) pH of Urine by Test strip 5.0-9.0 [facility] pH of Urine by Test stripOrd ered By: Jesus Ayala on 08-02-2024 pH (U) 7.0 [pH] Normal 5.0-9.0 [facility] Comment on above: Order Comment: Name Collection Type:: Clean-Voided Midstream Performed By: #### U PE RAND, CAMILLA,URINE, ALDOLASE, SPE, CAMILLA SERUM #### [facility] , #### ADDONUAPLUS, T4F, ESR, CMP, CK, CBC, CRP, TSH3 #### [address] ALL CBC WITH AUTO DIFFon BASOPHILS ABSOLUTE AUTO 0 N [facility] Basophils/100 WBC (Bld) 0.5 % 0.2 - 2.0 % [facility] Eosinophils/100 WBC (Bld) 2.9 % 0.9 - 7.0 % [facility] Erythrocyte distribution width (RBC) [Ratio] 14.4 % 11.0 - 15.0 % [facility] Hematocrit (Bld) [Volume fraction] 35.2 % Low 36.0 - 48.0 % [facility] Hemoglobin (Bld) [Mass/Vol] 11.4 g/dL Low 12.0 - 16.0 g/dL [facility] IMMATURE GRANULOCYTES ABS AUTO 0.06 High [facility] Immature granulocytes/100 WBC (Bld) 0.7 % High 0.0 - 0.5 % [facility] Interpretation and review of laboratory results Abnormal [facility] LYMPHOCYTES ABSOLUTE AUTO 1.1 Low [facility] Lymphocytes/100 WBC (Bld) 14 % Low 20.5 - 60.0 % [facility] MCH (RBC) [Entitic mass] 28 pg 26.7 - 34.0 pg [facility] MCHC (RBC) [Mass/Vol] 32.4 g/dL 29.9 - 35.2 g/dL [facility] MCV (RBC) [Entitic vol] 86.5 fL 81.0 - 99.0 fL [facility] MONOCYTES ABSOLUTE AUTO 0.4 N [facility] Monocytes/100 WBC (Bld) 5 % 1.7 - 12.0 % [facility] NEUTROPHILS ABSOLUTE AUTO 6.3 [facility] Neutrophils/100 WBC (Bld) 76.9 % High 43.0 - 75.0 % [facility] Platelet mean volume (Bld) [Entitic vol] 8.3 fL Low 9.5 - 13.5 fL [facility] TB EO # 0.2 [facility] TB PLT 362 [facility] TB RBC 4.07 Low [facility] TB WBC 8.2 [facility] Follow-Upon 07-07-2024 Follow-Up [id number] Antonio Puri i 1975 F Date Provider Department Center 07/07/2024 Tomasa4-SREE BLANCHARD [facility] [place] Family History Problem Relation Age of Onset Fibromyalgia Mother Heart disease Father Hypertension Sister Polycystic kidney disease Sister Hypertension Brother Polycystic kidney disease Brother Family Status - Relation Status Age at Mother Father Sister Brother Level of Service:96285 [place] OFFICE/OUTPATIENT ESTABLISHED LOW MDM 20 MIN Reason for Visit and Comments: UTI [[id number]] - CT results Normal [facility] URINE CULTURE, ROUTINEon Bacteria identified Cx Nom (U) ESCHERICHIA COLI Abnormal [facility] Comment on above: Result Comment: >100 ,000 CFU/Ml Escherichia coli Susceptibility to Follow Performed By: #### L [id number] #### [facility] ([facility]) [address] [place] [address] CT ABDOMEN PELVIS WO IV CONT Mer 07-02-2024 CT ABDOMEN PELVIS WO IV CONTRAST [...] kidney with innumerable circumscribed lesions within the crow kidneys, many which are simple cysts, others [...] Epperson MD. Not Vldtd Invalid Interpretation Code [facility] ALL CBC WITH AUTO DIFFon BASOPHILS ABSOLUTE AUTO 0.0 [facility] Basophils/100 WBC (Bld) 0.4 % 0.2 - 2.0 % [facility] Eosinophils/100 WBC (Bld) 2.4 % 0.9 - 7.0 % [facility] Erythrocyte distribution width (RBC) [Ratio] 15.5 % High 11.0 - 15.0 % [facility] Hematocrit (Bld) [Volume fraction] 37.7 % 36.0 - 48.0 % [facility] Hemoglobin (Bld) [Mass/Vol] 11.9 g/dL Low 12.0 - 16.0 g/dL [facility] IMMATURE GRANULOCYTES ABS AUTO 0.03 [facility] Immature granulocytes/100 WBC (Bld) 0.4 % 0.0 - 0.5 % [facility] Interpretation and review of laboratory results Abnormal [facility] LYMPHOCYTES ABSOLUTE AUTO 1.1 Low [facility] Healthcare Lymphocytes/100 WBC (Bld) 14.8 % Low 20.5 - 60.0 % [facility] MCH (RBC) [Entitic mass] 27.9 pg 26.7 - 34.0 pg [facility] MCHC (RBC) [Mass/Vol] 31.6 g/dL 29.9 - 35.2 g/dL [facility] MCV (RBC) [Entitic vol] 88.3 fL 81.0 - 99.0 fL [facility] MONOCYTES ABSOLUTE AUTO 0.4 N [facility] Monocytes/100 WBC (Bld) 5.1 % 1.7 - 12.0 % [facility] NEUTROPHILS ABSOLUTE AUTO 5.7 [facility] Neutrophils/100 WBC (Bld) 76.9 % High 43.0 - 75.0 % [facility] Platelet mean volume (Bld) [Entitic vol] 8.6 fL Low 9.5 - 13.5 fL [facility] Healthcare TBH EO # 0.2 [facility] TBH PLT 333 [facility] Healthcare TB RBC 4.27 [facility] TB WBC 7.5 [facility] Orders Onlyon 06-15-2024 Orders Only [id number] Antonio Puri i 1975 F Date Provider Department Center 06/15/2024 Camron-MUNIRA PHAN TXP None Family History Problem Relation Age of Onset Fibromyalgia Mother Heart disease Father Hypertension Sister Polycystic kidney disease Sister Hypertension Brother Polycystic kidney disease Brother Family Status - Relation Status Age at Mother Father Sister Brother Normal [facility] ALL CBC WITH AUTO DIFFon BASOPHILS ABSOLUTE AUTO 0.0 N [facility] Basophils/100 WBC (Bld) 0.5 % 0.2 - 2.0 % [facility] Eosinophils/100 WBC (Bld) 3.0 % 0.9 - 7.0 % [facility] Erythrocyte distribution width (RBC) [Ratio] 15.9 % High 11.0 - 15.0 % [facility] Hematocrit (Bld) [Volume fraction] 36.3 % 36.0 - 48.0 % [facility] Hemoglobin (Bld) [Mass/Vol] 11.8 g/dL Low 12.0 - 16.0 g/dL [facility] IMMATURE GRANULOCYTES ABS AUTO 0.04 High [facility] Immature granulocytes/100 WBC (Bld) 0.5 % 0.0 - 0.5 % [facility] Interpretation and review of laboratory results Abnormal [facility] LYMPHOCYTES ABSOLUTE AUTO 1.2 [facility] Lymphocytes/100 WBC (Bld) 14.0 % Low 20.5 - 60.0 % [facility] MCH (RBC) [Entitic mass] 28.0 pg 26.7 - 34.0 pg [facility] MCHC (RBC) [Mass/Vol] 32.5 g/dL 29.9 - 35.2 g/dL [facility] MCV (RBC) [Entitic vol] 86.0 fL 81.0 - 99.0 fL [facility] MONOCYTES ABSOLUTE AUTO 0.5 N [facility] Monocytes/100 WBC (Bld) 5.7 % 1.7 - 12.0 % [facility] NEUTROPHILS ABSOLUTE AUTO 6.4 [facility] Neutrophils/100 WBC (Bld) 76.3 % High 43.0 - 75.0 % [facility] Platelet mean volume (Bld) [Entitic vol] 8.6 fL Low 9.5 - 13.5 fL [facility] TBH EO # 0.3 [facility] TBH PLT 331 [facility] TBH RBC 4.22 [facility] TBH WBC 8.4 [facility] Consulton 05-19-2024 Consult [id number] Antonio Puri i 1975 F Date Provider Department Center 05/19/2024 3844-SREE BLANCHARD [facility] [place] Family History Problem Relation Age of Onset Fibromyalgia Mother Heart disease Father Hypertension Sister Polycystic kidney disease Sister Hypertension Brother Polycystic kidney disease Brother Family Status - Relation Status Age at Mother Father Sister Brother Level of Service:19708 [place] OFFICE/OUTPATIENT ESTABLISHED MOD MDM 30 MIN Reason for Visit and Comments: UTI [[id number]] - Recurrent chronic ecoli , has fibromyalgia and when that flairs up the UTI happens Normal [facility] CREATININE, URINE, RANDOMon 04-27-2024 Creatinine (U) [Mass/Vol] 142.0 mg/dL Normal 26-299 [facility] Comment on above: Performed By: #### L [id number] #### [facility] ([facility]) [address] [place] [address] Follow-Upon 04-27-2024 Follow-Up [id number] Antonio Puri i 1975 F Date Provider Department Center 04/27/2024 124-MUNIRA PHAN TXP None Family History Problem Relation Age of Onset Fibromyalgia Mother Heart disease Father Hypertension Sister Polycystic kidney disease Sister Hypertension Brother Polycystic kidney disease Brother Family Status - Relation Status Age at Mother Father Sister Brother Level of Service:13386 [place] OFFICE/OUTPATIENT ESTABLISHED MOD MDM 30 MIN Reason for Visit and Comments: Kidney Follow-up [[id number]] - Pt states she keeps getting a continuous UTI has been going on for months, has been on many antibiotics. Last Friday pt did a urine and it came back clean. Pt states previous urine sample came back with E.Coli at family doctor. Pt wanted to know if potassium can be decreased to 10 mg because they are smaller pills. Normal [facility] PROTEIN, URINE, RANDOMon Protein (U) [Mass/Vol] 51.7 mg/dL [facility] Comment on above: Result Comment: Ther e are no established reference values for random urine specimens. Performed By: #### L [id number] #### [facility] ([facility]) [address] [place] [address] URINALYSISon 04-27-2024 BILIRUBIN, TOTAL PRESENCE IN URINE Negative Normal Negative [facility] Comment on above: Performed By: #### L [id number] #### [facility] ([facility]) [address] [place] [address] Clarity (U) Slightly Cloudy Abnormal Clear [facility] Comment on above: Performed By: #### L [id number] #### [facility] ([facility]) [address] [place] [address] Color (U) Yellow Normal Yellow [facility] Comment on above: Performed By: #### L [id number] #### [facility] ([facility]) [address] [place] [address] Glucose (U) [Mass/Vol] Negative Normal Negative [facility] Comment on above: Performed By: #### L [id number] #### [facility] ([facility]) [address] [place] [address] HEMOGLOBIN PRESENCE IN URINE Small Abnormal Negative [facility] Comment on above: Performed By: #### L [id number] #### [facility] ([facility]) [address] [place] [address] Ketones Ql (U) Negative Normal Negative [facility] Comment on above: Performed By: #### L [id number] #### [facility] ([facility]) [address] [place] [address] LEUKOCYTE ESTERASE PRESENCE IN URINE BY TEST STRIP Large Abnormal Negative [facility] Comment on above: Performed By: #### L [id number] #### [facility] ([facility]) [address] [place] [address] NITRITE PRESENCE IN URINE Positive Abnormal Negative [facility] Comment on above: Performed By: #### L [id number] #### [facility] ([facility]) [address] [place] [address] pH (U) 6.0 [pH] Normal 5.0-8.0 [facility] Comment on above: Performed By: #### L [id number] #### [facility] ([facility]) [address] [place] [address] Protein (U) [Mass/Vol] 100 mg/dL Abnormal Negative [facility] Comment on above: Performed By: #### L [id number] #### [facility] ([facility]) [address] [place] [address] Specific gravity (U) [Rel density] 1.012 Low 1.015-1.020 [facility] Comment on above: Performed By: #### L [id number] #### [facility] ([facility]) [address] [place] [address] URINALYSIS MICROSCOPICon CASTS IN URINE Normal [facility] Comment on above: Performed By: #### L [id number] ####[facility] ([facility])[address] [place] [address] CRYSTALS IN URINE Normal [facility] Comment on above: Performed By: #### L [id number] ####[facility] ([facility])[address] [place] [address] MUCUS (#/HPF) IN URINE SEDIMENT Occasional Normal None Seen, Occasional, Few [facility] Comment on above: Performed By: #### L [id number] ####[facility] ([facility])[address] [place] [address] RBC (#/HPF) IN URINE SEDIMENT 11-20 Abnormal None Seen [facility] Comment on above: Performed By: #### L [id number] ####[facility] ([facility])[address] [place] [address] SQUAMOUS EPITHELIAL CELLS (#/HPF) IN URINE SEDIMENT Moderate Abnormal None Seen, Occasional [facility] Comment on above: Performed By: #### L [id number] ####[facility] ([facility])[address] [place] [address] WBC (LEUKOCYTE) (#/HPF) IN URINE SEDIMENT >100 Abnormal None Seen [facility] Comment on above: Performed By: #### L [id number] ####[facility] ([facility])[address] [place] [address] URINE CULTURE, ROUTINEon Bacteria identified Cx Nom (U) ESCHERICHIA COLI Abnormal [facility] Comment on above: Result Comment: >100 ,000 CFU/Ml Escherichia coli Susceptibility to Follow Performed By: #### L [id number] ####[facility] ([facility])[address] [place] [address] BILIRUBIN, DIRECTon 04-23-20 24 Magnesium [Mass/Vol] 0.0 mg/dL Normal 0-0.2 [facility] Comment on above: Performed By: #### L [id number] #### [facility] ([facility]) [address] [place] [address] CBC WITH AUTO DIFFERENTIALon 04-23-2024 Basophils (Bld) [#/Vol] 0.05 10*3/uL Normal 0.00-0.20 [facility] Comment on above: Performed By: #### L [id number] #### [facility] ([facility]) [address] [place] [address] Basophils/100 WBC (Bld) 0.6 % Normal 0.0-1.0 [facility] Comment on above: Performed By: #### L [id number] #### [facility] ([facility]) [address] [place] [address] Eosinophils (Bld) [#/Vol] 0.17 10*3/uL Normal 0.00-0.50 [facility] Comment on above: Performed By: #### L [id number] #### [facility] ([facility]) [address] [place] [address] Eosinophils/100 WBC (Bld) 1.9 % Normal 0.0-6.0 [facility] Comment on above: Performed By: #### L [id number] #### [facility] [address] [place] [address] Erythrocyte distribution width (RBC) [Ratio] 15.7 % High 11.5-15.0 [facility] Comment on above: Performed By: #### L [id number] #### [facility] ([facility]) [address] [place] [address] ERYTHROCYTE MEAN CORPUSCULAR HEMOGLOBIN CONCENTRATION (G/DL) BY AUTOMATED 32.7 g/dL Normal 32.0-35.0 [facility] Comment on above: Performed By: #### L [id number] #### [facility] [address] [place] [address] Hematocrit (Bld) [Volume fraction] 39.2 % Normal 36.0-48.0 [facility] Comment on above: Performed By: #### L [id number] #### [facility] [address] [place] [address] Hemoglobin (Bld) [Mass/Vol] 12.8 g/dL Normal 12.0-15.0 [facility] Comment on above: Performed By: #### L [id number] #### [facility] ([facility]) [address] [place] [address] Immature granulocytes (Bld) [#/Vol] 0.06 10*3/uL Normal 0.00-0.20 [facility] Comment on above: Performed By: #### L [id number] #### [facility] ([facility]) [address] [place] [address] Immature granulocytes/100 WBC (Bld) 0.7 % Normal 0.0-1.0 [facility] Comment on above: Performed By: #### L [id number] #### [facility] ([facility]) [address] [place] [address] Lymphocytes (Bld) [#/Vol] 1.27 10*3/uL Normal 1.20-4.00 [facility] Comment on above: Performed By: #### L [id number] #### [facility] ([facility]) [address] [place] [address] Lymphocytes/100 WBC (Bld) 14.5 % Low 20.0-45.0 [facility] Comment on above: Performed By: #### L [id number] #### [facility] ([facility]) [address] [place] [address] MCH (RBC) [Entitic mass] 27.7 pg Normal 27.0-33.0 [facility] Comment on above: Performed By: #### L [id number] #### [facility] ([facility]) [address] [place] [address] MCV (RBC) [Entitic vol] 84.8 fL Normal 82.0-98.0 U [facility] Comment on above: Performed By: #### L [id number] #### [facility] ([facility]) [address] [place] [address] Monocytes (Bld) [#/Vol] 0.40 10*3/uL Normal 0.10-1.00 [facility] Comment on above: Performed By: #### L [id number] #### [facility] ([facility]) [address] [place] [address] Monocytes/100 WBC (Bld) 4.6 % Low 5.0-12.0 U [facility] Comment on above: Performed By: #### L [id number] #### [facility] ([facility]) [address] [place] [address] Neutrophils (Bld) [#/Vol] 6.82 10*3/uL Normal 1.60-7.60 [facility] Comment on above: Performed By: #### L [id number] #### [facility] ([facility]) [address] [place] [address] Neutrophils/100 WBC (Bld) 77.7 % High 40.0-72.0 [facility] Comment on above: Performed By: #### L [id number] #### [facility] ([facility]) [address] [place] [address] NRBC (PER 100 WBCS) BY AUTOMATED COUNT 0.0 % Normal 0 [facility] Comment on above: Performed By: #### L [id number] #### [facility] ([facility]) [address] [place] [address] PLATELETS (10*3/UL) IN BLOOD AUTOMATED COUNT 337 10*3/uL Normal 150-400 [facility] Comment on above: Performed By: #### L [id number] #### [facility] ([facility]) [address] [place] [address] RBC (Bld) [#/Vol] 4.62 10*6/uL Normal 3.80-5.00 [facility] Comment on above: Performed By: #### L [id number] #### [facility] ([facility]) [address] [place] [address] WBC (Bld) [#/Vol] 8.77 10*3/uL Normal 4.00-10.60 [facility] Comment on above: Performed By: #### L [id number] #### [facility] ([facility]) [address] [place] [address] COMPREHENSIVE METABOLIC PANE Jonathan 04-23-2024 Albumin [Mass/Vol] 4.4 g/dL Normal 3.5-5.7 [facility] Comment on above: Performed By: #### L [id number] #### [facility] ([facility]) [address] [place] [address] ALP [Catalytic activity/Vol] 74 U/L Normal 34-104 [facility] Comment on above: Performed By: #### L [id number] #### [facility] ([facility]) [address] [place] [address] ALT [Catalytic activity/Vol] 9 U/L Normal 7-52 [facility] Comment on above: Performed By: #### L [id number] #### [facility] ([facility]) [address] [place] [address] Anion gap [Moles/Vol] 13 mmol/L Normal 7-20 [facility] Comment on above: Performed By: #### L [id number] #### [facility] [address] [place] [address] AST [Catalytic activity/Vol] 14 U/L Normal 13-39 [facility] Comment on above: Performed By: #### L [id number] #### [facility] ([facility]) [address] [place] [address] Bilirubin [Mass/Vol] 0.4 mg/dL Normal 0.3-1.0 [facility] Comment on above: Performed By: #### L [id number] #### [facility] [address] [place] [address] Calcium [Mass/Vol] 9.4 mg/dL Normal 8.6-10.3 [facility] Comment on above: Performed By: #### L [id number] #### [facility] [address] [place] [address] Chloride [Moles/Vol] 104 mmol/L Normal 98-107 [facility] Comment on above: Performed By: #### L [id number] #### [facility] [address] [place] [address] CO2 [Moles/Vol] 25 mmol/L Normal 21-31 [facility] Comment on above: Performed By: #### L [id number] #### [facility] [address] [place] [address] Creatinine [Mass/Vol] 1.09 mg/dL Normal 0.60-1.20 [facility] Comment on above: Performed By: #### L [id number] #### [facility] [address] [place] [address] GLOMERULAR FILTRATION RATE ML/MIN/1.73 SQ M.PREDICTED 62.7 mL/min/1.73m*2 Normal >60.0 [facility] Comment on above: Result Comment: [facility]???s estimated glomerular filtration rate (eGFR) [...] individuals. Performed By: #### L [id number] #### [facility] ([facility]) [address] [place] [address] Glucose [Mass/Vol] 108 mg/dL High 70-100 [facility] Comment on above: Performed By: #### L [id number] #### [facility] ([facility]) [address] [place] [address] Potassium [Moles/Vol] 3.5 mmol/L Normal 3.5-5.1 [facility] Comment on above: Performed By: #### L [id number] #### [facility] ([facility]) [address] [place] [address] Protein [Mass/Vol] 7.6 g/dL Normal 6.0-8.3 [facility] Comment on above: Performed By: #### L [id number] #### [facility] ([facility]) [address] [place] [address] Sodium [Moles/Vol] 138 mmol/L Normal 136-145 [facility] Comment on above: Performed By: #### L [id number] #### [facility] ([facility]) [address] [place] [address] Urea nitrogen [Mass/Vol] 13 mg/dL Normal 7-25 [facility] Comment on above: Performed By: #### L [id number] #### [facility] ([facility]) [address] [place] [address] UREA NITROGEN/CREATININE (MASS RATIO) IN SER/PLAS 11.9 Normal [facility] Comment on above: Performed By: #### L [id number] #### [facility] ([facility]) [address] [place] [address] HEMOGLOBIN A1Con 04-23-2024 Glucose [Mass/Vol] 105 mg/dL Normal [facility] Comment on above: Performed By: #### L [id number] #### [facility] ([facility]) [address] [place] [address] HbA1c (Bld) [Mass fraction] 5.3 % Normal 4.0-6.0 [facility] Comment on above: Performed By: #### L [id number] #### [facility] ([facility]) [address] [place] [address] LIPID PANELon 04-23-2024 CHOL/HDL 4.0 mg/dL Normal [facility] Comment on above: Performed By: #### L [id number] #### [facility] ([facility]) [address] [place] [address] Cholesterol [Mass/Vol] 182 mg/dL Normal 120-200 [facility] Comment on above: Performed By: #### L [id number] #### [facility] ([facility]) [address] [place] [address] Magnesium [Mass/Vol] 166 mg/dL High 40-149 [facility] Comment on above: Result Comment: TRIG LYCERIDE REFERENCE RANGE: 20 YEARS AND OLDER CARDIOVASCULAR RISK LESS THAN 150 mg/dL LOW RISK 150 TO 199 mg/dL BORDERLINE RISK 200 mg/dL AND GREATER HIGH RISK Performed By: #### L [id number] #### [facility] ([facility]) [address] [place] [address] Magnesium [Mass/Vol] 103 mg/dL Normal 0-160 [facility] Comment on above: Performed By: #### L [id number] #### [facility] ([facility]) [address] [place] [address] Magnesium [Mass/Vol] 46 mg/dL Normal 23-92 [facility] Comment on above: Performed By: #### L [id number] #### [facility] ([facility]) [address] [place] [address] NON HDL CHOL. (LDL+VLDL) 136 Normal [facility] Comment on above: Performed By: #### L [id number] #### [facility] ([facility]) [address] [place] [address] TOTAL VLDL-C 33 mg/dL Normal 0-40 [facility] Comment on above: Performed By: #### L [id number] #### [facility] ([facility]) [address] [place] [address] Labon 04-23-2024 Lab [id number] Antonio Puri i 1975 F Date Provider Department Center 04/23/2024 2245-[facility] RESOURCE [facility] Family History Problem Relation Age of Onset Fibromyalgia Mother Heart disease Father Hypertension Sister Polycystic kidney disease Sister Hypertension Brother Polycystic kidney disease Brother Family Status - Relation Status Age at Mother Father Sister Brother Normal [facility] MAGNESIUMon 04-23-2024 Magnesium [Mass/Vol] 1.8 mg/dL Low 1.9-2.[address] [facility] Comment on above: Performed By: #### L [id number] #### [facility] ([facility]) [address] [place] [address] PHOSPHORUSon 04-23-2024 Magnesium [Mass/Vol] 2.8 mg/dL Normal 2.5-5.0 [facility] Comment on above: Performed By: #### L [id number] #### [facility] ([facility]) [address] [place] [address] TACROLIMUS LEVELon Tacrolimus (Bld) [Mass/Vol] 10.5 ng/mL Normal 5.0-20.0 [facility] Comment on above: Result Comment: The [employer] Tacrolimus assay is a delayed one-step immunoassay for the quantitative determination of tacrolimus in human whole blood using the chemiluminescent microparticle immunoassay (CMIA) technology with flexible assay protocols, referred to as Chemiflex. Performed By: #### L [id number] #### [facility] ([facility]) [address] [place] [address] URIC ACIDon 04-23-2024 Magnesium [Mass/Vol] 4.0 mg/dL Normal 2.3-6.6 [facility] Comment on above: Performed By: #### L [id number] #### [facility] ([facility]) [address] [place] [address] URINALYSISon 04-23-2024 BILIRUBIN, TOTAL PRESENCE IN URINE Negative Normal Negative [facility] Comment on above: Performed By: #### L [id number] #### [facility] ([facility]) [address] [place] [address] Clarity (U) Cloudy Abnormal Clear [facility] Comment on above: Performed By: #### L [id number] #### [facility] ([facility]) [address] [place] [address] Color (U) Yellow Normal Yellow [facility] Comment on above: Performed By: #### L [id number] #### [facility] ([facility]) [address] [place] [address] Glucose (U) [Mass/Vol] Negative Normal Negative Un [facility] Comment on above: Performed By: #### L [id number] #### [facility] ([facility]) [address] [place] [address] HEMOGLOBIN PRESENCE IN URINE Negative Normal Negative [facility] Comment on above: Performed By: #### L [id number] #### [facility] ([facility]) [address] [place] [address] Ketones Ql (U) Negative Normal Negative [facility] Comment on above: Performed By: #### L [id number] #### [facility] ([facility]) [address] [place] [address] LEUKOCYTE ESTERASE PRESENCE IN URINE BY TEST STRIP Negative Normal Negative [facility] Comment on above: Performed By: #### L [id number] #### [facility] ([facility]) [address] [place] [address] NITRITE PRESENCE IN URINE Negative Normal Negative [facility] Comment on above: Performed By: #### L [id number] #### [facility] ([facility]) [address] [place] [address] pH (U) 7.0 [pH] Normal 5.0-8.0 [facility] Comment on above: Performed By: #### L [id number] #### [facility] ([facility]) [address] [place] [address] Protein (U) [Mass/Vol] Negative Normal [facility] Comment on above: Performed By: #### L [id number] #### [facility] ([facility]) [address] [place] [address] Specific gravity (U) [Rel density] 1.011 Low 1.015-1.020 [facility] Comment on above: Performed By: #### L [id number] #### [facility] ([facility]) [address] [place] [address] URINALYSIS MICROSCOPICon AMORPHOUS CRYSTALS (#/HPF) IN URINE Few Abnormal None Seen [facility] Comment on above: Performed By: #### L [id number] #### [facility] ([facility]) [address] [place] [address] CASTS IN URINE Normal [facility] Comment on above: Performed By: #### L [id number] #### [facility] ([facility]) [address] [place] [address] CRYSTALS IN URINE Normal [facility] Comment on above: Performed By: #### L [id number] #### [facility] [address] [place] [address] MUCUS (#/HPF) IN URINE SEDIMENT Occasional Normal None Seen, Occasional, Few [facility] Comment on above: Performed By: #### L [id number] #### [facility] ([facility]) [address] [place] [address] RBC (#/HPF) IN URINE SEDIMENT 3-5 Abnormal None Seen [facility] Comment on above: Performed By: #### L [id number] #### [facility] ([facility]) [address] [place] [address] SQUAMOUS EPITHELIAL CELLS (#/HPF) IN URINE SEDIMENT Many Abnormal None Seen, Occasional [facility] Comment on above: Performed By: #### L [id number] #### [facility] [address] [place] [address] WBC (LEUKOCYTE) (#/HPF) IN URINE SEDIMENT 3-5 Abnormal None Seen [facility] Comment on above: Performed By: #### L [id number] #### [facility] [address] [place] [address] URINE CULTURE, ROUTINEon Bacteria identified Cx Nom (U) <10,000 CFU/ML No Significant Growth Normal [facility] Comment on above: Performed By: #### L [id number] #### [facility] ([facility]) [address] [place] [address] US RENAL COMPLETEon 04-14-20 24 US RENAL COMPLETE EXAM: Renal Ultrasou nd with Doppler: REASON FOR EXAM: Polycystic kidneys. COMPARISON: None. TECHNIQUE: Real-time ultrasonographic evaluation of the kidneys is performed with color flow Doppler. FINDINGS: There is a transplanted right kidney. Right kidney: Numerous crow right renal cysts. No hydronephrosis. Left kidney: Numerous crow left renal cysts. No hydronephrosis. Uniform and [...] report is generated using voice recognition reporting (PowerScribe). On occasion [employer] erroneously drops words from the report or replaces the spoken word with similar sounding words. Please call with any questions/concerns regarding this report.* Dictated and transcribed 04/14/2024/heriberto This report has been electronically signed and approved by the interpreting radiologist. Electronically Signed René Raymond M.D. 2024-04-14 16:31:56 Normal Not Available Urine Cultureon 03-15-2024 Bacteria identified Cx Nom (U) ORGANISM: Escherichia coli (MDRO) (O:ESCCOLMDRO) Curtis Count >100,000 Aerobic CODI Charge (NMIC56) - [...] RESISTANT TO ALL B-LACTAM DRUGS. PERFORMED BY: [address] [place] [address] PATHOLOGIST EMBROIDERY WORKER ANAHY MCKEE M.D. Normal [facility] Comment on above: Performed By: #### C UU #### [facility] [address] Documentationon 03-03-2024 Documentation [id number] Antonio Puri i 1975 F Date Provider Department Center 03/03/2024 750-EVERETTE JOSE RAFAEL TXP None Family History Problem Relation Age of Onset Fibromyalgia Mother Heart disease Father Hypertension Sister Polycystic kidney disease Sister Hypertension Brother Polycystic kidney disease Brother Family Status - Relation Status Age at Mother Father Sister Brother Normal [facility] Follow-Upon 12-23-2023 Follow-Up [id number] Antonio Puri i 1975 F Date Provider Department Center 12/23/2023 124-MUNIRA PHAN TXP None Family History Problem Relation Age of Onset Fibromyalgia Mother Heart disease Father Hypertension Sister Polycystic kidney disease Sister Hypertension Brother Polycystic kidney disease Brother Family Status - Relation Status Age at Mother Father Sister Brother Level of Service:68477 [place] OFFICE/OUTPATIENT ESTABLISHED MOD MDM 30 MIN Reason for Visit and Comments: Kidney Follow-up [[id number]] - Pt has questions about her lab work. Normal [facility] PAPITO Antinuclear Antibodieson 11-06-2023 Antinuclear Abs, IFA Negative Normal . [facility] Comment on above: Result Comment: Nega tive <1:80 Borderline 1:80 Positive >1:80 ICAP nomenclature: AC-0 For more information about Hep-2 cell patterns use ANApatterns.org, the official website for the International Consensus on Antinuclear Antibody (PPAITO) Patterns (ICAP). Performed at: - [facility] [address] [id number] Data Warehouse Manager: Gabriel Whitman PhD, Phone: [phone] PERFORMED BY: [facility] [address] [place] [address] PATHOLOGIST EMBROIDERY WORKER ANAHY MCKEE M.D. Performed By: #### C BC, CMP, CK, CRP, ESR ####[facility] [address]#### PAPITO ####[facility] , Alanine aminotransferase [En zymatic activity/volume] in Serum or PlasmaOrdered By: Perri Ceja on 11-06-2023 ALT [Catalytic activity/Vol] 20 U/L Normal 7-52 [facility] Comment on above: Performed By: #### C BC, CMP, CK, CRP, ESR ####[place] [address] [address]#### PAPITO ####[facility] , Albumin [Mass/volume] in Ser um or Plasma by Bromocresol green (BCG) dye binding methoOrdered By: Perri Ceja on 11-06-2023 Albumin BCG dye [Mass/Vol] 4.7 g/dL 3.5-5.7 [facility] Alkaline phosphatase [Enzyma tic activity/volume] in Serum or PlasmaOrdered By: Perri Ceja on 11-06-2023 ALP [Catalytic activity/Vol] 96 U/L Normal 34-104 [facility] Comment on above: Performed By: #### C BC, CMP, CK, CRP, ESR ####[address]#### PAPITO ####[facility] , Aspartate aminotransferase [ Enzymatic activity/volume] in Serum or PlasmaOrdered By: Perri Ceja on 11-06-2023 AST [Catalytic activity/Vol] 16 U/L Normal 13-39 [facility] Comment on above: Performed By: #### C BC, CMP, CK, CRP, ESR ####[place] [address] [place]#### PAPITO ####[facility] , Automated basophil %Ordered By: Perri Ceja on 11-06-2023 Basophils/100 WBC (Bld) 0.7 % Normal . [facility] Comment on above: Performed By: #### C BC, CMP, CK, CRP, ESR ####[address]#### PAPITO ####[facility] , Automated basophil countOrde red By: Perri Ceja on 11-06-2023 Basophils (Bld) [#/Vol] 0.1 10*3/uL Normal 0.0-0.2 [facility] Comment on above: Performed By: #### C BC, CMP, CK, CRP, ESR ####[address]#### PAPITO ####[facility] , Automated blood monocyte cou ntOrdered By: Perri Ceja on 11-06-2023 Monocytes (Bld) [#/Vol] 0.6 10*3/uL Normal 0.0-0.8 [facility] Comment on above: Performed By: #### C BC, CMP, CK, CRP, ESR ####[address]#### PAPITO ####[facility] , Automated eosinophil %Ordere d By: Perri Ceja on 11-06-2023 Eosinophils/100 WBC (Bld) 3.0 % Normal . [facility] Comment on above: Performed By: #### C BC, CMP, CK, CRP, ESR ####[address]#### PAPITO ####[facility] , Automated eosinophil countOr dered By: Perri Ceja on 11-06-2023 Eosinophils (Bld) [#/Vol] 0.3 10*3/uL Normal 0.0-0.45 [facility] Comment on above: Performed By: #### C BC, CMP, CK, CRP, ESR ####[place] [address] [place]#### PAPITO ####[facility] , Automated monocyte %Ordered By: Perri Ceja on 11-06-2023 Monocytes/100 WBC (Bld) 6.6 % Normal . [facility] Comment on above: Performed By: #### C BC, CMP, CK, CRP, ESR ####[address] [place] [address] [place]#### PAPITO ####[facility] , Automated neutrophil %Ordere d By: Perri Ceja on 11-06-2023 Neutrophils/100 WBC (Bld) 72.1 % Normal . [facility] Comment on above: Performed By: #### C BC, CMP, CK, CRP, ESR ####[place] [address] [place]#### PAPITO ####[facility] , Bilirubin.total [Mass/volume ] in Serum or PlasmaOrdered By: Perri Ceja on 11-06-2023 Bilirubin [Mass/Vol] 0.4 mg/dL Normal 0.3-1.0 [facility] Comment on above: Performed By: #### C BC, CMP, CK, CRP, ESR ####[address]#### PAPITO ####[facility] , C reactive protein [Mass/vol ume] in Serum or PlasmaOrdered By: Perri Ceja on 11-06-2023 CRP [Mass/Vol] 2.0 mg/dL 0.0-0.5 [facility] C-Reactive Proteinon 024 C-Reactive Protein 2.0 mg/dL High 0.0-0.5 [facility] Comment on above: Result Comment: PERF ORMED BY: [facility] [address] [place] [address] PATHOLOGIST EMBROIDERY WORKER ANAHY MCKEE M.D. Performed By: #### C BC, CMP, CK, CRP, ESR ####[place] [address] [place]#### PAPITO ####[facility] , Calcium [Mass/volume] in Ser um or PlasmaOrdered By: Perri Ceja on 11-06-2023 Calcium [Mass/Vol] 10.3 mg/dL Normal 8.6-10.3 [facility] Comment on above: Performed By: #### C BC, CMP, CK, CRP, ESR ####[place] [address] [place]#### PAPITO ####[facility] , Carbon dioxide, total [Moles /volume] in Serum or PlasmaOrdered By: Perri Ceja on 11-06-2023 CO2 [Moles/Vol] 26.1 mmol/L Normal 21.0-31.0 [facility] Comment on above: Performed By: #### C BC, CMP, CK, CRP, ESR ####[place] [address] [place]#### PAPITO ####[facility] , Chloride [Moles/volume] in S aislinn or PlasmaOrdered By: Perri Ceja on 11-06-2023 Chloride [Moles/Vol] 104 mmol/L Normal 98-107 [facility] Comment on above: Performed By: #### C BC, CMP, CK, CRP, ESR ####[place] [address] [place]#### PAPITO ####[facility] , Complete Blood Count Auto Di ffon 11-06-2023 Mean Corpuscular HGB Conc 33.6 g/dL Normal 32.0-35.0 [facility] Comment on above: Performed By: #### C BC, CMP, CK, CRP, ESR ####[place] [address] [place]#### PAPITO ####[facility] , NRBC% 0.1 /100{WBC} Normal 0-0.5 [facility] Comment on above: Performed By: #### C BC, CMP, CK, CRP, ESR ####[place] [address] [place]#### PAPITO ####[facility] , Comprehensive Metabolic Pane jonathan 11-06-2023 Albumin [Mass/Vol] 4.7 g/dL Normal 3.5-5.7 [facility] Comment on above: Performed By: #### C BC, CMP, CK, CRP, ESR ####[address]#### PAPITO ####[facility] , GFR/1.73 sq M.predicted MDRD (S/P/Bld) [Vol rate/Area] 57.919 mL/min/{1.73_m2} Normal [facility] Comment on above: Performed By: #### C BC, CMP, CK, CRP, ESR ####[address]#### PAPITO ####[facility] , Creatine kinase [Enzymatic a ctivity/volume] in Serum or PlasmaOrdered By: Perri Ceja on 11-06-2023 CK [Catalytic activity/Vol] 30 U/L Normal 30-223 [facility] Comment on above: Result Comment: PERF ORMED BY: [facility] [address] [place] [address] PATHOLOGIST EMBROIDERY WORKER ANAHY MCKEE M.D. Performed By: #### C BC, CMP, CK, CRP, ESR ####[address]#### PAPITO ####[facility] , Creatinine [Mass/volume] in Serum or PlasmaOrdered By: Perri Ceja on 11-06-2023 Creatinine [Mass/Vol] 1.17 mg/dL Normal 0.60-1.20 [facility] Comment on above: Performed By: #### C BC, CMP, CK, CRP, ESR ####[place] [address] [place]#### PAPITO ####[facility] , Erythrocyte Sedimentation Ra mathieu 11-06-2023 ESR (Bld) [Velocity] 49 mm/h High 0-19 [facility] Comment on above: Result Comment: PERF ORMED BY: [facility] [address] [place] [address] PATHOLOGIST EMBROIDERY WORKER ANAHY MCKEE M.D. Performed By: #### C BC, CMP, CK, CRP, ESR ####[place] [address] [address]#### PAPITO ####[facility] , Erythrocyte distribution wid th [Ratio] by Automated countOrdered By: Perri Ceja on 11-06-2023 Erythrocyte distribution width (RBC) [Ratio] 15.3 % Normal 11.9-15.3 [facility] Comment on above: Performed By: #### C BC, CMP, CK, CRP, ESR ####[place] [address] [address]#### PAPITO ####[facility] , Erythrocyte sedimentation ra te by Photometric methodOrdered By: Perri Ceja on 11-06-2023 ESR Photometric method (Bld) [Velocity] 49 mm/hr 0-19 [facility] Erythrocytes [#/volume] in B lood by Automated countOrdered By: Perri Ceja on 11-06-2023 RBC (Bld) [#/Vol] 4.60 10*6/uL Normal 3.60-5.00 [facility] Comment on above: Performed By: #### C BC, CMP, CK, CRP, ESR ####[place] [address] [address]#### PAPITO ####[facility] , Glucose [Mass/volume] in Ser um or PlasmaOrdered By: Perri Ceja on 11-06-2023 Glucose [Mass/Vol] 91 mg/dL Normal 70-100 [facility] Comment on above: ADA recommended refe rence rangeRandom Glucose Reference Range is dependent on time and content of last meal. Glucose of more than 200 mg/dL in a nonstressed, ambulatory subject supports the diagnosis of Diabetes Mellitus. Result Comment: Morenci om Glucose Reference Range is dependent on time and content of last meal. Glucose of more than 200 mg/dL in a nonstressed, ambulatory subject supports the diagnosis of Diabetes Mellitus. ADA recommended reference range Performed By: #### C BC, CMP, CK, CRP, ESR ####[facility] [place] [address] [place]#### PAPITO ####[facility] , Hematocrit [Volume Fraction] of Blood by Automated countOrdered By: Perri Ceja on 11-06-2023 Hematocrit (Bld) [Volume fraction] 38.9 % Normal 34.0-46.4 [facility] Comment on above: Performed By: #### C BC, CMP, CK, CRP, ESR ####[place] [address] [place] [address] [place]#### PAPITO ####[facility] , Hemoglobin [Mass/volume] in BloodOrdered By: Perri Ceja on 11-06-2023 Hemoglobin (Bld) [Mass/Vol] 13.1 g/dL Normal 11.8-15.4 [facility] Comment on above: Performed By: #### C BC, CMP, CK, CRP, ESR ####[place] [address] [place]#### PAPITO ####[facility] , Leukocytes [#/volume] correc noah for nucleated erythrocytes in Blood by Automated counOrdered By: Perri Ceja on 11-06-2023 WBC corrected for nucl RBC Auto (Bld) [#/Vol] 8.8 10*3/uL 3.8-11.6 [facility] Leukocytes [#/volume] in Blo od by Automated countOrdered By: Preri Ceja on 11-06-2023 WBC (Bld) [#/Vol] 8.8 10*3/uL Normal 3.8-11.6 [facility] Comment on above: Performed By: #### C BC, CMP, CK, CRP, ESR ####[place] [address] [place]#### PAPITO ####[facility] , Lymphocytes [#/volume] in Bl ood by Automated countOrdered By: Perri Ceja on 11-06-2023 Lymphocytes (Bld) [#/Vol] 1.5 10*3/uL Normal 1.00-4.8 [facility] Comment on above: Performed By: #### C BC, CMP, CK, CRP, ESR ####[address]#### PAPITO ####[facility] , Lymphocytes/100 leukocytes i n Blood by Automated countOrdered By: Perri Ceja on 11-06-2023 Lymphocytes/100 WBC (Bld) 17.6 % Normal . [facility] Comment on above: Performed By: #### C BC, CMP, CK, CRP, ESR ####[address]#### PAPITO ####[facility] , MCH [Entitic mass] by Automa noah countOrdered By: Perri Ceja on 11-06-2023 MCH (RBC) [Entitic mass] 28.4 pg Normal 24.7-34.3 [facility] Comment on above: Performed By: #### C BC, CMP, CK, CRP, ESR ####[address]#### PAPITO ####[facility] , MCHC Auto (RBC) [Mass/Vol]Or dered By: Perri Ceja on 11-06-2023 MCHC (RBC) [Mass/Vol] 33.6 g/dL 32.0-35.0 [facility] MCV [Entitic volume] by Auto mated countOrdered By: Perri Ceja on 11-06-2023 MCV (RBC) [Entitic vol] 84.6 fL Normal 80-100 [facility] Comment on above: Performed By: #### C BC, CMP, CK, CRP, ESR ####[place] [address] [place]#### PAPITO ####[facility] , Neutrophils [#/volume] in Bl ood by Automated countOrdered By: Perri Ceja on 11-06-2023 Neutrophils (Bld) [#/Vol] 6.3 10*3/uL Normal 1.8-7.7 [facility] Comment on above: Performed By: #### C BC, CMP, CK, CRP, ESR ####[facility]#### PAPITO ####[facility] , No Panel InformationOrdered By: Perri Ceja on 11-06-2023 Estimated GFR (CKD-EPI) 57.919 mL/Min [facility] Creatinine Clearance (Chem N/A [facility] Nucleated erythrocytes [Pres ence] in Blood by Automated countOrdered By: Perri Ceja on 11-06-2023 Nucleated RBC Auto Ql (Bld) 0.1 /100{WBC} 0-0.5 [facility] Platelet mean volume [Entiti c volume] in Blood by Automated countOrdered By: Perri Ceja on 11-06-2023 Platelet mean volume (Bld) [Entitic vol] 6.9 fL Normal 6.3-10.7 [facility] Comment on above: Performed By: #### C BC, CMP, CK, CRP, ESR ####[facility]#### PAPITO ####[facility] , Platelets [#/volume] in Bloo d by Automated countOrdered By: Perri Ceja on 11-06-2023 Platelets (Bld) [#/Vol] 393 10*3/uL Normal 150-450 [facility] Comment on above: Performed By: #### C BC, CMP, CK, CRP, ESR ####[place] [id number] [place]#### PAPITO ####[facility] , Potassium [Moles/volume] in Serum or PlasmaOrdered By: Perri Ceja on 11-06-2023 Potassium [Moles/Vol] 3.8 mmol/L Normal 3.5-5.1 [facility] Comment on above: Performed By: #### C BC, CMP, CK, CRP, ESR ####[id number] [place] [address] [place]#### PAPITO ####[facility] , Protein [Mass/volume] in Ser um or PlasmaOrdered By: Perri Ceja on 11-06-2023 Protein [Mass/Vol] 7.7 g/dL Normal 6.4-8.9 [facility] Comment on above: Performed By: #### C BC, CMP, CK, CRP, ESR ####[address]#### PAPITO ####[facility] , Serum globulin measurement b y calculation (mass/volume)Ordered By: Perri Ceja on 11-06-2023 Globulin (S) [Mass/Vol] 3.0 g/dL Normal [facility] Comment on above: Performed By: #### C BC, CMP, CK, CRP, ESR ####[address]#### PAPITO ####[facility] , Serum or plasma albumin/glob ulin mass ratioOrdered By: Perri Ceja on 11-06-2023 Albumin/Globulin [Mass ratio] 1.6 {ratio} Normal [facility] Comment on above: Performed By: #### C BC, CMP, CK, CRP, ESR ####[place] [address] [place]#### PAPITO ####[facility] , Serum or plasma anion gap de terminationOrdered By: Perri Ceja on 11-06-2023 Anion gap [Moles/Vol] 12.7 mmol/L Normal 6.0-15.0 [facility] Comment on above: Performed By: #### C BC, CMP, CK, CRP, ESR ####[place] [address] [place]#### PAPITO ####[facility] , Sodium [Moles/volume] in Ser um or PlasmaOrdered By: Perri Ceja on 11-06-2023 Sodium [Moles/Vol] 139 mmol/L Normal 136-145 [facility] Comment on above: Performed By: #### C BC, CMP, CK, CRP, ESR ####[facility] [id number]#### PAPITO ####[facility] , Urea nitrogen [Mass/volume] in Serum or PlasmaOrdered By: Perri Ceja on 11-06-2023 Urea nitrogen [Mass/Vol] 17 mg/dL Normal 7-25 [facility] Comment on above: Performed By: #### C BC, CMP, CK, CRP, ESR ####[facility] [id number]#### PAPITO ####[facility] , PTH INTACTon 07-30-2022 PTH, Intact 107 pg/mL Critically high 15-65 [facility] Comment on above: Performed By: #### M G, URIC, RENAL #### [facility] [address] [address] [address] Hari Palmer FERRITINon 07-29-2022 Ferritin [Mass/Vol] 194.0 ng/mL Critically high 6.2-137.0 [facility] Comment on above: Performed By: #### M G, URIC, RENAL #### [facility] [address] [address] [address] Hari Palmer HEMOGRAM AND PLATELon 2021 Hematocrit (Bld) [Volume fraction] 32.8 % Critically low 36.0-48.0 [facility] Comment on above: Performed By: #### M G, URIC, RENAL #### [facility] [address] [address] [address] Hari Palmer Hemoglobin (Bld) [Mass/Vol] 10.8 g/dL Critically low 12.0-16.0 [facility] Comment on above: Performed By: #### M G, URIC, RENAL #### [facility] [address] [address] [address] Hari Palmer MCH (RBC) [Entitic mass] 31.7 pg Normal 26.7-34.0 [facility] Comment on above: Performed By: #### M G, URIC, RENAL #### [facility] [address] [address] [address] Hari Palmer MCHC (RBC) [Mass/Vol] 32.9 g/dL Normal 29.9-35.2 [facility] Comment on above: Performed By: #### M G, URIC, RENAL #### [facility] [address] [place] [address] Dr. Hari Palmer MCV (RBC) [Entitic vol] 96.2 fL Normal 81.0-99.0 [facility] Comment on above: Performed By: #### M G, URIC, RENAL #### [facility] [address] [place] [address] Dr. Hari Palmer PLT 297 103/ul Normal 150-450 [facility] Comment on above: Performed By: #### M G, URIC, RENAL #### [facility] [address] [place] [address] Dr. Hari Palmer RBC 3.41 106/ul Critically low 4.20-5.40 [facility] Comment on above: Performed By: #### M G, URIC, RENAL #### [facility] [address] [place] [address] Dr. Hari Palmer WBC 7.1 103/ul Normal 4.0-11.0 [facility] Comment on above: Performed By: #### M G, URIC, RENAL #### [facility] [address] [place] [address] Dr. Hari Palmer IRON AND TIBCon 07-29-2022 % SATURATION 19.0 % Normal [facility] Comment on above: Performed By: #### M G, URIC, RENAL #### [facility] [address] [place] [address] Dr. Hari Palmer Iron [Mass/Vol] 48.0 ug/dL Critically low 50.0-170.0 [facility] Comment on above: Performed By: #### M G, URIC, RENAL #### [facility] [address] [address] [address] Hari Palmer TIBC DIRECT 252.0 ug/dL Normal 250.0-450.0 [facility] Comment on above: Performed By: #### M G, URIC, RENAL #### [facility] [address] [address] [address] Hari Palmer MAGNESIUMon 07-29-2022 Magnesium [Mass/Vol] 2.0 mg/dL Normal 1.8-2.4 [facility] Comment on above: Performed By: #### M G, URIC, RENAL #### [facility] [address] [place] [address] Dr. Hari Palmer RENAL FUNCTION PANELon 07-29 Albumin [Mass/Vol] 3.6 g/dL Normal 3.4-5.0 [facility] Comment on above: Performed By: #### M G, URIC, RENAL #### [facility] [address] [place] [address] Dr. Hari Palmer Calcium [Mass/Vol] 8.7 mg/dL Normal 8.5-10.1 [facility] Comment on above: Performed By: #### M G, URIC, RENAL #### [facility] [address] [place] [address] Dr. Hari Palmer Chloride [Moles/Vol] 104 mmol/L Normal 98-107 [facility] Comment on above: Performed By: #### M G, URIC, RENAL #### [facility] [address] [place] [address] Dr. Hari Palmer CO2 [Moles/Vol] 21.8 mmol/L Normal 21.0-32.0 [facility] Comment on above: Performed By: #### M G, URIC, RENAL #### [facility] [address] [place] [address] Dr. Hari Palmer Creatinine [Mass/Vol] 3.83 mg/dL Critically high 0.55-1.02 [facility] Comment on above: Performed By: #### M G, URIC, RENAL #### [facility] [address] [address] [address] Hari Palmer EGFR-AF GEORGIAN 15 mL/min/1.73m2 Critically low >=60 [facility] Comment on above: Performed By: #### M G, URIC, RENAL #### [facility] [address] [address] [address] Hari Palmer EGFR-NON AF GEORGIAN 13 mL/min/1.73m2 Critically low >=60 [facility] Comment on above: Performed By: #### M G, URIC, RENAL #### [facility] [address] [address] [address] Hari Palmer Glucose [Mass/Vol] 108 mg/dL Critically high 74-106 [facility] Comment on above: Performed By: #### M G, URIC, RENAL #### [facility] [address] [place] [address] Dr. Hari Palmer Phosphate [Mass/Vol] 5.4 mg/dL Critically high 2.6-4.7 [facility] Comment on above: Performed By: #### M G, URIC, RENAL #### [facility] [address] [address] [address] Hari Palmer Potassium [Moles/Vol] 3.9 mmol/L Normal 3.5-5.1 [facility] Comment on above: Performed By: #### M G, URIC, RENAL #### [facility] [address] [address] [address] Hari Palmer Sodium [Moles/Vol] 137 mmol/L Normal 136-145 [facility] Comment on above: Performed By: #### M G, URIC, RENAL #### [facility] [address] [address] [address] Hari Palmer Urea nitrogen [Mass/Vol] 47.0 mg/dL Critically high 7.0-18.0 [facility] Comment on above: Performed By: #### M G, URIC, RENAL #### [facility] [address] [address] [address] Hari Palmer URIC ACID SERUMon 07-29-2022 Urate [Mass/Vol] 6.3 mg/dL Critically high 2.6-6.0 [facility] Comment on above: Performed By: #### M Edy URIC, RENAL #### [facility] [address] [address] [address] Hari Palmer URINE T PROTEIN CREAT RATIOo n 07-29-2022 Protein (U) [Mass/Vol] 29.7 mg/dL Critically high <=12.0 [facility] Comment on above: Performed By: #### M Edy URIC, RENAL #### [facility] [address] [address] [address] Hari Palmer UR PROT CREAT RAT 0.56 Normal [facility] Comment on above: Performed By: #### M JUDIE Snow, RENAL #### [facility] [address] [place] [address] Dr. Hari Palmer URINE CREAT 53.35 mg/dL Normal 20.00-300.00 [facility] Comment on above: Performed By: #### M Edy URIC, RENAL #### [facility] [address] [address] [address] Hari Palmer VITAMIN D 25 OHon 07-29-2022 VIT D 25-OH 38.8 ng/mL Normal [facility] Comment on above: Performed By: #### M Edy URIC, RENAL #### [facility] [address] [place] [address] Dr. Hari Palmer VIT D RANGES SEE BELOW Normal [facility] Comment on above: Result Comment: <20 ng/mL Vit D deficient 20 - <30 ng/mL Vit D insufficient 30 - 100 ng/mL Vit D sufficient >100 ng/mL Potential Toxicity Performed By: #### M JUDIE Snow, RENAL #### [facility] [address] [place] [address] Dr. Hari Palmer Albumin [Mass/volume] in Ser um or PlasmaOrdered By: Stanley Forman on 06-20-2022 Albumin [Mass/Vol] 3.9 g/dL 3.2-5.5 [facility] Basophils Auto (Bld) [#/Vol] Ordered By: Stanley Forman on 06-20-2022 Basophils (Bld) [#/Vol] 0.1 10*3/uL 0.0-0.2 [facility] Basophils/100 WBC Auto (Bld) Ordered By: Stanley Forman on 06-20-2022 Basophils/100 WBC (Bld) 0.7 % . F [facility] Blood hemoglobin measurement (mass/volume)Ordered By: Stanley Forman on 06-20-2022 Hemoglobin (Bld) [Mass/Vol] 10.8 g/dL 11.8-15.4 [facility] Blood leukocytes automated c ount (number/volume)Ordered By: Stanley Forman on 06-20-2022 WBC (Bld) [#/Vol] 11.8 10*3/uL 4.5-11.0 [facility] C reactive protein [Mass/vol ume] in Serum or PlasmaOrdered By: Stanley Forman on 06-20-2022 CRP [Mass/Vol] 5.2 mg/dL 0.0-1.0 [facility] Creatinine and Glomerular fi ltration rate.predicted panel (S/P/Bld)Ordered By: Stanley Forman on 06-20-2022 Creatinine [Mass/Vol] 4.49 mg/dL 0.44-1.03 [facility] Eosinophils Auto (Bld) [#/Vo l]Ordered By: Stanley Forman on 06-20-2022 Eosinophils (Bld) [#/Vol] 0.4 10*3/uL 0.0-0.45 [facility] Eosinophils/100 WBC Auto (Bl d)Ordered By: Stanley Forman on 06-20-2022 Eosinophils/100 WBC (Bld) 3.2 % . [facility] Erythrocyte distribution wid th Auto (RBC) [Ratio]Ordered By: Stanley Forman on 06-20-2022 Erythrocyte distribution width (RBC) [Ratio] 14.0 % 11.9-15.3 [facility] Erythrocyte sedimentation ra te by Photometric methodOrdered By: Stanley Forman on 06-20-2022 ESR Photometric method (Bld) [Velocity] 67 mm/hr 0-19 [facility] Estimated glomerular filtrat ion rate (GFR) non- AmericanOrdered By: Stanley Forman on 06-20-2022 GFR/1.73 sq M.predicted among non-blacks MDRD (S/P/Bld) [Vol rate/Area] 11 mL/Min [facility] Globulin Calc (S) [Mass/Vol] Ordered By: Stanley Forman on 06-20-2022 Globulin (S) [Mass/Vol] 3.5 g/dL F [facility] Hematocrit Auto (Bld) [Volum e fraction]Ordered By: Stanley Forman on 06-20-2022 Hematocrit (Bld) [Volume fraction] 33.1 % 34.0-46.4 [facility] - Hematology and Cell countsOrdered By: Stanley Forman on 06-20-2022 Nucleated RBC/100 WBC (Bld) [Ratio] 0.0 % 0-0.5 [facility] Lymphocytes Auto (Bld) [#/Vo l]Ordered By: Stanley Forman on 06-20-2022 Lymphocytes (Bld) [#/Vol] 1.5 10*3/uL 1.00-4.8 [facility] Lymphocytes/100 WBC Auto (Bl d)Ordered By: Stanley Forman on 06-20-2022 Lymphocytes/100 WBC (Bld) 12.3 % . [facility] MCH Auto (RBC) [Entitic mass ]Ordered By: Stanley Forman on 06-20-2022 MCH (RBC) [Entitic mass] 31.1 pg 24.7-34.3 [facility] MCHC Auto (RBC) [Mass/Vol]Or dered By: Stanley Forman on 06-20-2022 MCHC (RBC) [Mass/Vol] 32.5 g/dL 32.0-35.0 [facility] MCV Auto (RBC) [Entitic vol] Ordered By: Stanley Forman on 06-20-2022 MCV (RBC) [Entitic vol] 95.6 fL 80-100 [facility] Monocytes Auto (Bld) [#/Vol] Ordered By: Stanley Forman on 06-20-2022 Monocytes (Bld) [#/Vol] 0.5 10*3/uL 0.0-0.8 [facility] Monocytes/100 WBC Auto (Bld) Ordered By: Stanley Forman on 06-20-2022 Monocytes/100 WBC (Bld) 4.1 % . [facility] Neutrophils Auto (Bld) [#/Vo l]Ordered By: Stanley Forman on 06-20-2022 Neutrophils (Bld) [#/Vol] 9.4 10*3/uL 1.8-7.7 [facility] Neutrophils/100 WBC Auto (Bl d)Ordered By: Stanley Forman on 06-20-2022 Neutrophils/100 WBC (Bld) 79.7 % . [facility] No Panel InformationOrdered By: Stanley Forman on 06-20-2022 Estimated GFR () 13 mL/Min [facility] Comment on above: GFR estimated refere nce range: According to KDOQI guidelines, <60 ml/min/1.73m2 is sufficient to diagnose a patient with chronic kidney disease. Pharmacy Creatinine Clearance (Chem 16.48 [facility] Platelet mean volume Auto (B ld) [Entitic vol]Ordered By: Stanley Forman on 06-20-2022 Platelet mean volume (Bld) [Entitic vol] 7.0 fL 6.3-10.7 [facility] Platelets Auto (Bld) [#/Vol] Ordered By: Stanley Forman on 06-20-2022 Platelets (Bld) [#/Vol] 287 10*3/uL 150-450 [facility] Protein [Mass/volume] in Ser um or PlasmaOrdered By: Stanley Forman on 06-20-2022 Protein [Mass/Vol] 7.4 g/dL 6.1-7.9 [facility] RBC Auto (Bld) [#/Vol]Ordere d By: Stanley Forman on 06-20-2022 RBC (Bld) [#/Vol] 3.46 10*6/uL 3.60-5.00 [facility] Serum or plasma alanine cesar otransferase measurement without P-5'-P (enzymatic activiOrdered By: Stanley Forman on 06-20-2022 ALT No additional P-5'-P [Catalytic activity/Vol] 11 U/L 10-60 [facility] Serum or plasma albumin/glob ulin mass ratioOrdered By: Stanley Forman on 06-20-2022 Albumin/Globulin [Mass ratio] 1.1 {ratio} [facility] Serum or plasma alkaline gina sphatase measurement (enzymatic activity/volume)Ordered By: Stanley Forman on 06-20-2022 ALP [Catalytic activity/Vol] 82 U/L 32-92 [facility] Serum or plasma anion gap de terminationOrdered By: Stanley Forman on 06-20-2022 Anion gap [Moles/Vol] 16.2 mmol/L 6.0-15.0 [facility] Serum or plasma aspartate am inotransferase measurement (enzymatic activity/volume)Ordered By: Stanley Forman on 06-20-2022 AST [Catalytic activity/Vol] 15 U/L 10-42 [facility] Serum or plasma calcium ge urement (mass/volume)Ordered By: Stanley Forman on 06-20-2022 Calcium [Mass/Vol] 9.3 mg/dL 8.2-10.2 [facility] Serum or plasma chloride lee surement (moles/volume)Ordered By: Stanley Forman on 06-20-2022 Chloride [Moles/Vol] 103 mmol/L 95-114 [facility] Serum or plasma glucose ge urement (mass/volume)Ordered By: Stanley Forman on 06-20-2022 Glucose [Mass/Vol] 75 mg/dL 70-100 [facility] Comment on above: ADA recommended refe rence rangeRandom Glucose Reference Range is dependent on time and content of last meal. Glucose of more than 200 mg/dL in a nonstressed, ambulatory subject supports the diagnosis of Diabetes Mellitus. Serum or plasma potassium me asurement (moles/volume)Ordered By: Stanley Forman on 06-20-2022 Potassium [Moles/Vol] 4.3 mmol/L 3.5-5.1 [facility] Serum or plasma sodium measu rement (moles/volume)Ordered By: Stanley Forman 06-20-2022 Sodium [Moles/Vol] 135 mmol/L 136-146 [facility] Serum or plasma total biliru bin measurement (mass/volume)Ordered By: Stanley Forman 06-20-2022 Bilirubin [Mass/Vol] 0.3 mg/dL 0.3-1.2 [facility] Serum or plasma total carbon dioxide measurement (moles/volume)Ordered By: Stanleymario Forman on 06-20-2022 CO2 [Moles/Vol] 20.1 mmol/L 22.0-30.0 [facility] Serum or plasma urea nitroge n measurement (mass/volume)Ordered By: Stanley Forman on 06-20-2022 Urea nitrogen [Mass/Vol] 42 mg/dL 9- [facility] COVID-19 Positive/NegativeOr dered By: Jesus Parham on 06-14-2022 SARS-CoV-2 (COVID-19) N gene AMBERLY+probe Ql (Resp) Negative Negative [facility] Comment on above: Testing for SARS-CoV -2 by RT-PCR This test was developed and its performance characteristics determined by [employer]) and validated at the [facility]. This test has not been FDA [...] developed and its performance characteristics determined by [employer] ([employer]) and validated at the [facility]. This test has not been FDA [...] (CA) 125 10.8 U/mL Normal 0.0-38.1 [facility] Comment on above: Result Comment: [employer] Electrochemiluminescence Immunoassay (ECLIA) . Values obtained with different assay methods or kits cannot be used interchangeably. Results cannot be interpreted as absolute evidence of the presence or absence of malignant disease. Performed By: #### M G, URIC, RENAL #### [facility] [address] [address] [address] Hari Palmer CEAon 06-08-2022 CEA 0.9 ng/mL Normal 0.0-4.7 [facility] Comment on above: Result Comment: Nons mokers <3.9 Smokers <5.6 . [employer] Electrochemiluminescence Immunoassay (ECLIA) . Values obtained with different assay methods or kits cannot be used interchangeably. Results cannot be interpreted as absolute evidence of the presence or absence of malignant disease. Performed By: #### C EA. #### [facility] [address] [address] [address] Hari Palmer Basophils Auto (Bld) [#/Vol] Ordered By: Jesus Parham on 06-05-2022 Basophils (Bld) [#/Vol] 0.0 10*3/uL 0.0-0.2 [facility] Basophils/100 WBC Auto (Bld) Ordered By: Jesus Parham on 06-05-2022 Basophils/100 WBC (Bld) 0.3 % . F [facility] Blood hemoglobin measurement (mass/volume)Ordered By: Jesus Parham on 06-05-2022 Hemoglobin (Bld) [Mass/Vol] 12.0 g/dL 11.8-15.4 [facility] Blood leukocytes automated c ount (number/volume)Ordered By: Jesus Parham on 06-05-2022 WBC (Bld) [#/Vol] 8.5 10*3/uL 4.5-11.0 [facility] Creatinine and Glomerular fi ltration rate.predicted panel (S/P/Bld)Ordered By: Jesus Parham on 06-05-2022 Creatinine [Mass/Vol] 3.52 mg/dL 0.44-1.03 [facility] Eosinophils Auto (Bld) [#/Vo l]Ordered By: Jesus Parham on 06-05-2022 Eosinophils (Bld) [#/Vol] 0.2 10*3/uL 0.0-0.45 [facility] Eosinophils/100 WBC Auto (Bl d)Ordered By: Jesus Parham on 06-05-2022 Eosinophils/100 WBC (Bld) 2.7 % . [facility] Erythrocyte distribution wid th Auto (RBC) [Ratio]Ordered By: Jesus Parham on 06-05-2022 Erythrocyte distribution width (RBC) [Ratio] 14.2 % 11.9-15.3 [facility] Estimated glomerular filtrat ion rate (GFR) non- AmericanOrdered By: Jesus Parham on 06-05-2022 GFR/1.73 sq M.predicted among non-blacks MDRD (S/P/Bld) [Vol rate/Area] 14 mL/Min [facility] Hematocrit Auto (Bld) [Volum e fraction]Ordered By: Jesus Parham on 06-05-2022 Hematocrit (Bld) [Volume fraction] 35.8 % 34.0-46.4 [facility] - Hematology and Cell countsOrdered By: Jesus Parham on 06-05-2022 Nucleated RBC/100 WBC (Bld) [Ratio] 0.1 % 0-0.5 [facility] Lymphocytes Auto (Bld) [#/Vo l]Ordered By: Jesus Parham on 06-05-2022 Lymphocytes (Bld) [#/Vol] 1.6 10*3/uL 1.00-4.8 [facility] Lymphocytes/100 WBC Auto (Bl d)Ordered By: Jesus Parham on 06-05-2022 Lymphocytes/100 WBC (Bld) 19.3 % . [facility] MCH Auto (RBC) [Entitic mass ]Ordered By: Jesus Parham on 06-05-2022 MCH (RBC) [Entitic mass] 31.5 pg 24.7-34.3 [facility] MCHC Auto (RBC) [Mass/Vol]Or dered By: Jesus Parham on 06-05-2022 MCHC (RBC) [Mass/Vol] 33.3 g/dL 32.0-35.0 [facility] MCV Auto (RBC) [Entitic vol] Ordered By: Jesus Parham on 06-05-2022 MCV (RBC) [Entitic vol] 94.4 fL 80-100 F [facility] Monocytes Auto (Bld) [#/Vol] Ordered By: Jesus Parham on 06-05-2022 Monocytes (Bld) [#/Vol] 0.3 10*3/uL 0.0-0.8 [facility] Monocytes/100 WBC Auto (Bld) Ordered By: Jesus Parham on 06-05-2022 Monocytes/100 WBC (Bld) 3.9 % . F [facility] Neutrophils Auto (Bld) [#/Vo l]Ordered By: Jesus Parham on 06-05-2022 Neutrophils (Bld) [#/Vol] 6.2 10*3/uL 1.8-7.7 [facility] Neutrophils/100 WBC Auto (Bl d)Ordered By: Jesus Parham on 06-05-2022 Neutrophils/100 WBC (Bld) 73.8 % . [facility] No Panel InformationOrdered By: Jesus Parham on 06-05-2022 Estimated GFR () 17 mL/Min [facility] Comment on above: GFR estimated refere nce range: According to KDOQI guidelines, <60 ml/min/1.73m2 is sufficient to diagnose a patient with chronic kidney disease. Pharmacy Creatinine Clearance (Chem N/A [facility] Platelet mean volume Auto (B ld) [Entitic vol]Ordered By: Jesus Parham on 06-05-2022 Platelet mean volume (Bld) [Entitic vol] 7.3 fL 6.3-10.7 [facility] Platelets Auto (Bld) [#/Vol] Ordered By: Jesus Parham on 06-05-2022 Platelets (Bld) [#/Vol] 312 10*3/uL 150-450 [facility] RBC Auto (Bld) [#/Vol]Ordere d By: Jesus Parham on 06-05-2022 RBC (Bld) [#/Vol] 3.80 10*6/uL 3.60-5.00 [facility] Serum or plasma anion gap de terminationOrdered By: Jesus Parham on 06-05-2022 Anion gap [Moles/Vol] 15.1 mmol/L 6.0-15.0 [facility] Serum or plasma calcium ge urement (mass/volume)Ordered By: Jesus Parham on 06-05-2022 Calcium [Mass/Vol] 9.5 mg/dL 8.2-10.2 [facility] Serum or plasma chloride lee surement (moles/volume)Ordered By: Jesus Parham on 06-05-2022 Chloride [Moles/Vol] 106 mmol/L 95-114 [facility] Serum or plasma glucose ge urement (mass/volume)Ordered By: Jesus Parham on 06-05-2022 Glucose [Mass/Vol] 91 mg/dL 70-100 [facility] Comment on above: ADA recommended [...] on 06-05-2022 Potassium [Moles/Vol] 4.4 mmol/L 3.5-5.1 [facility] Serum or plasma sodium measu rement (moles/volume)Ordered By: Jesus Parham on 06-05-2022 Sodium [Moles/Vol] 137 mmol/L 136-146 [facility] Serum or plasma total carbon dioxide measurement (moles/volume)Ordered By: Jesus Parham on 06-05-2022 CO2 [Moles/Vol] 20.3 mmol/L 22.0-30.0 [facility] Serum or plasma urea nitroge n measurement (mass/volume)Ordered By: Jesus Parham on 06-05-2022 Urea nitrogen [Mass/Vol] 38 mg/dL 9-23 [facility] PTH INTACTon 04-29-2022 PTH, Intact 191 pg/mL Critically high 15-65 [facility] [facility] Comment on above: Performed By: #### M JUDIE Snow RENAL #### [facility] Laboratory [address] [address] [address] Hari Palmer VIT D 25-OH LABCORPon 2021 Vitamin D, 25-Hydroxy 33.6 ng/mL Normal 30.0-100.0 [facility] Comment on above: Result Comment: Ning min D deficiency has been defined by the [place] [employer] and an Endocrine Society practice guideline as a level of serum 25-OH vitamin D less than 20 ng/mL (1,2). The Endocrine Society went on to further define vitamin D insufficiency as a level between 21 and 29 ng/mL (2). 1. IOM ([place] [employer]). 2010. Dietary reference intakes for calcium and D. [place]: The National Academies Press. 2. Chantel MF, Landen [place], Eliseo STEPHENS, et al. Evaluation, treatment, and prevention of vitamin D deficiency: an Endocrine Society clinical practice guideline. JCEM. 2010; 96(7):1911-30. Performed By: #### M JUDIE Snow RENAL #### [facility] [address] [address] [address] Hari Palmer ABO AND RH TYPEon 04-27-2022 ABO and Rh group Nom (Bld) ABO Rh Typing O Rh Positive Normal [facility] Comment on above: Performed By: #### JUDIE Traore RENAL #### [facility] [address] [address] [address] Hari Palmer FERRITINon 04-27-2022 Ferritin [Mass/Vol] 273.0 ng/mL Critically high 6.2-137.0 [facility] Comment on above: Performed By: #### M G, URIC, RENAL #### [facility] [address] [place] [address] Dr. Hari Palmer HEMOGRAM AND PLATELon 2021 Hematocrit (Bld) [Volume fraction] 33.9 % Critically low 36.0-48.0 [facility] Comment on above: Performed By: #### M G, URIC, RENAL #### [facility] [address] [place] [address] Dr. Hari Palmer Hemoglobin (Bld) [Mass/Vol] 11.4 g/dL Critically low 12.0-16.0 [facility] Comment on above: Performed By: #### M G, URIC, RENAL #### [facility] [address] [place] [address] Dr. Hari Palmer MCH (RBC) [Entitic mass] 31.7 pg Normal 26.7-34.0 [facility] Comment on above: Performed By: #### M G, URIC, RENAL #### [facility] [address] [place] [address] Dr. Hari Palmer MCHC (RBC) [Mass/Vol] 33.6 g/dL Normal 29.9-35.2 [facility] Comment on above: Performed By: #### M G, URIC, RENAL #### [facility] [address] [place] [address] Dr. Hari Palmer MCV (RBC) [Entitic vol] 94.2 fL Normal 81.0-99.0 [facility] Comment on above: Performed By: #### M G, URIC, RENAL #### [facility] [address] [place] [address] Dr. Hari Palmer PLT 333 103/ul Normal 150-450 [facility] Comment on above: Performed By: #### M G, URIC, RENAL #### [facility] [address] [place] [address] Dr. Hari Palmer RBC 3.60 106/ul Critically low 4.20-5.40 [facility] Comment on above: Performed By: #### M G, URIC, RENAL #### [facility] [address] [place] [address] Dr. Hari Palmer WBC 9.7 103/ul Normal 4.0-11.0 [facility] Comment on above: Performed By: #### M G, URIC, RENAL #### [facility] [address] [place] [address] Dr. Hari Palmer IRON AND TIBCon 04-27-2022 % SATURATION 20.1 % Normal [facility] Comment on above: Performed By: #### M G, URIC, RENAL #### [facility] [address] [place] [address] Dr. Hari Palmer Iron [Mass/Vol] 57.0 ug/dL Normal 50.0-170.0 [facility] Comment on above: Performed By: #### M G, URIC, RENAL #### [facility] [address] [place] [address] Dr. Hari Palmer TIBC DIRECT 283.0 ug/dL Normal 250.0-450.0 [facility] Comment on above: Performed By: #### M G, URIC, RENAL #### [facility] [address] [place] [address] Dr. Hari Palmer MAGNESIUMon 04-27-2022 Magnesium [Mass/Vol] 2.1 mg/dL Normal 1.8-2.4 [facility] Comment on above: Performed By: #### R ENAL, URIC, MG #### [facility] [address] [place] [address] Dr. Hari Palmer RENAL FUNCTION PANELon 04-27 Albumin [Mass/Vol] 3.6 g/dL Normal 3.4-5.0 [facility] Comment on above: Performed By: #### R ENAL, URIC, MG #### [facility] [address] [place] [address] Dr. Hari Palmer Calcium [Mass/Vol] 9.0 mg/dL Normal 8.5-10.1 [facility] Comment on above: Performed By: #### R ENAL, URIC, MG #### [facility] [address] [place] [address] Dr. Hari Palmer Chloride [Moles/Vol] 104 mmol/L Normal 98-107 [facility] Comment on above: Performed By: #### R ENAL, URIC, MG #### [facility] [address] [place] [address] Dr. Hari Palmer CO2 [Moles/Vol] 23.0 mmol/L Normal 21.0-32.0 [facility] Comment on above: Performed By: #### R ENAL, URIC, MG #### [facility] [address] [place] [address] Dr. Hari Palmer Creatinine [Mass/Vol] 3.38 mg/dL Critically high 0.55-1.02 [facility] Comment on above: Performed By: #### R ENAL, URIC, MG #### [facility] [address] [place] [address] Dr. Hari Palmer EGFR-AF GEORGIAN 18 mL/min/1.73m2 Critically low >=60 [facility] Comment on above: Performed By: #### R ENAL, URIC, MG #### [facility] [address] [place] [address] Dr. Hari Palmer EGFR-NON AF GEORGIAN 15 mL/min/1.73m2 Critically low >=60 [facility] Comment on above: Performed By: #### R ENAL, URIC, MG #### [facility] [address] [place] [address] Dr. Hari Palmer Glucose [Mass/Vol] 113 mg/dL Critically high 74-106 [facility] Comment on above: Performed By: #### R ENAL, URIC, MG #### [facility] [address] [place] [address] Dr. Hari Palmer Phosphate [Mass/Vol] 4.4 mg/dL Normal 2.6-4.7 [facility] Comment on above: Performed By: #### R ENAL, URIC, MG #### [facility] [address] [place] [address] Dr. Hari Palmer Potassium [Moles/Vol] 4.0 mmol/L Normal 3.5-5.1 [facility] Comment on above: Performed By: #### R ENAL, URIC, MG #### [facility] [address] [place] [address] Dr. Hari Palmer Sodium [Moles/Vol] 137 mmol/L Normal 136-145 [facility] Comment on above: Performed By: #### R ENAL, URIC, MG #### [facility] [address] [place] [address] Dr. Hari Palmer Urea nitrogen [Mass/Vol] 44.0 mg/dL Critically high 7.0-18.0 [facility] Comment on above: Performed By: #### R ENAL, URIC, MG #### [facility] [address] [place] [address] Dr. Hari Palmer URIC ACID SERUMon 04-27-2022 Urate [Mass/Vol] 6.6 mg/dL Critically high 2.6-6.0 [facility] Comment on above: Performed By: #### R ENAL, URIC, MG #### [facility] [address] [place] [address] Dr. Hari Palmer URINE T PROTEIN CREAT RATIOo n 04-27-2022 Protein (U) [Mass/Vol] 31.4 mg/dL Critically high <=12.0 [facility] Comment on above: Performed By: #### M G, URIC, RENAL #### [facility] [address] [place] [address] Dr. Hari Palmer UR PROT CREAT RAT 0.55 Normal [facility] Comment on above: Performed By: #### M G, URIC, RENAL #### [facility] [address] [place] [address] Dr. Hari Palmer URINE CREAT 57.50 mg/dL Normal 20.00-300.00 [facility] Comment on above: Performed By: #### M G, URIC, RENAL #### [facility] [address] [place] [address] Dr. Hari Palmer ECHOCARDIO M/2D COMPLETEon 0 03-29-2022 ECHOCARDIO M/2D COMPLETE Patient: MANDEEP PURI Exam Date: 03/29/2022 : 1975 Gender:F Ordering : HAIDER FRENCH M.D. Admission #: [id number] Family : Order #: [id number] CLICK HERE TO VIEW EXAM ECHOCARDIOGRAM REPORT [...] Area(A4C): 17.00 cm2 Left Atrium Systolic Volume(A2C): 51370 mm3 Left Atrium Systolic Volume(A4C): 34109 mm3 Mitral Valve MV E to A Ratio: 0.80 Deceleration [place]: 3210 mm/s2 Mitral Valve A-Wave Peak Velocity: [...] 04/01/2022 at 12:33 Normal [facility] COVID-19 SOFIAOrdered By: Mary Beth Jones on 03-28-2022 SARS-CoV+SARS-CoV-2 (COVID-19) Ag IA.rapid Ql (Resp) Negative Negative [facility] Comment on above: This is a duplicate Ada SARS Antigen (GLORIA) result to be used for statistical tracking purpose only. No Panel InformationOrdered By: Shabbir Jones on 03-28-2022 SARS Antigen (LFIA) [facility] BLOOD TYPE AND RHon 02-13-20 ABO INTERPRETATION O Normal [facility] Comment on above: Performed By: #### 3 1397, 54776, 68188, 51251, 10271 #### [facility] [address] [place] [address], [facility] RH INTERPRETATION Positive Normal [facility] Comment on above: Performed By: #### 3 1397, 39133, 52399, 83232, 36529 #### [facility] [address] [place] [address], [place] BNP (B-TYPE NATRIURETIC PEPT JOEL)on 02-12-2022 Natriuretic peptide B (Bld) [Mass/Vol] 10 pg/mL Normal 0-100 [facility] Comment on above: Result Comment: Give n the appropriate clinical setting a BNP result of >100 pg/mL indicates congestive heart failure. Performed By: #### 8 5123, 37408 #### [facility] [address] [facility]. [address] CBC W/DIFFon 02-12-2022 ABS IMM GRANS 0.2 10*3/uL Normal 0.0-0.2 [facility] Comment on above: Performed By: #### 3 1397, 23462, 45901, 97656, 02335 #### [facility] [address] [place] [address], [facility] ABS NEUTROPHILS 7.8 10*3/uL High 1.6-7.6 [facility] Comment on above: Performed By: #### 3 1397, 17903, 89428, 74540, 36772 #### [facility] [address] [place] [address], [facility] Basophils (Bld) [#/Vol] 0.1 10*3/uL Normal 0.0-0.2 [facility] Comment on above: Performed By: #### 3 1397, 88991, 65936, 35940, 18650 #### [facility] [address] [place] [address], [facility] Basophils/100 WBC (Bld) 0.6 % Normal 0.0-1.0 T [facility] Comment on above: Performed By: #### 3 1397, 50473, 83895, 86793, 71866 #### [facility] [address] [place] [address], [facility] Eosinophils (Bld) [#/Vol] 0.3 10*3/uL Normal 0.0-0.5 [facility] Comment on above: Performed By: #### 3 1397, 55278, 61245, 20328, 11583 #### [facility] [address] [place] [address], [facility] Eosinophils/100 WBC (Bld) 2.5 % Normal 0.0-6.0 [facility] Comment on above: Performed By: #### 3 1397, 98410, 09529, 05160, 52312 #### [facility] [address] Erythrocyte distribution width (RBC) [Ratio] 13.6 % Normal 11.5-15.0 [facility] Comment on above: Performed By: #### 3 1397, 18428, 73356, 99491, 02645 #### [facility] [address] Hematocrit (Bld) [Volume fraction] 34.5 % Low 36.0-45.0 [facility] Comment on above: Performed By: #### 3 1397, 53369, 23868, 07014, 64234 #### [facility] [address] Hemoglobin (Bld) [Mass/Vol] 11.3 g/dL Low 12.0-15.0 [facility] Comment on above: Performed By: #### 3 1397, 14716, 14187, 05538, 59952 #### [facility] [address] [place] [address], [facility] IMMATURE GRANS 1.4 % High 0.0-1.0 [facility] Comment on above: Performed By: #### 3 1397, 45275, 56124, 13204, 03103 #### [facility] [address] [place] [address], [facility] Lymphocytes (Bld) [#/Vol] 2.0 10*3/uL Normal 1.2-4.0 [facility] Comment on above: Performed By: #### 3 1397, 17423, 31794, 22478, 15548 #### [facility] [address] [place] [address], [place] Lymphocytes/100 WBC (Bld) 18.6 % Low 20.0-45.0 [facility] Comment on above: Performed By: #### 3 1397, 53165, 64094, 29091, 14406 #### [facility] [address] [place] [address], [facility] MCH (RBC) [Entitic mass] 31.3 pg Normal 27.0-33.0 [facility] Comment on above: Performed By: #### 3 1397, 23055, 72347, 31306, 63979 #### [facility] [address] [place] [id number], [facility] MCHC (RBC) [Mass/Vol] 32.8 g/dL Normal 32.0-35.0 [facility] Comment on above: Performed By: #### 3 1397, 48225, 72135, 84170, 60734 #### [facility] [address] [place] [address], [facility] MCV (RBC) [Entitic vol] 95.6 fL Normal 82.0-98.0 T [facility] Comment on above: Performed By: #### 3 1397, 46272, 56526, 28918, 40777 #### [facility] [address] [place] [address], [facility] Monocytes (Bld) [#/Vol] 0.5 10*3/uL Normal 0.1-1.0 [facility] Comment on above: Performed By: #### 3 1397, 04735, 18938, 75694, 67160 #### [facility] [address] [place] [address], [facility] MONOS 4.9 % Low 5.0-12.0 [facility] Comment on above: Performed By: #### 3 1397, 50281, 04116, 38071, 48730 #### [facility] [address] [place] [id number], [facility] Neutrophils/100 WBC (Bld) 72.0 % Normal 40.0-72.0 [facility] Comment on above: Performed By: #### 3 1397, 66427, 04692, 47710, 52606 #### [facility] [address] [place] [address], [facility] Nucleated RBC/100 WBC (Bld) [Ratio] 0 % Normal 0-0 [facility] Comment on above: Performed By: #### 3 1397, 84002, 26890, 06871, 80422 #### [facility] [address] [place] [address], [facility] PLAT CNT 315 10*3/uL Normal 150-400 [facility] Comment on above: Performed By: #### 3 1397, 04535, 40750, 87190, 31283 #### [facility] [address] [facility] [place] [address], [facility] RBC (Bld) [#/Vol] 3.61 10*6/uL Low 3.80-5.00 [facility] Comment on above: Performed By: #### 3 1397, 37307, 67076, 12406, 14739 #### [facility] [address] [facility] [place] [address], [facility] WBC (Bld) [#/Vol] 10.78 10*3/uL High 4.00-10.60 [facility] Comment on above: Performed By: #### 3 1397, 21284, 81438, 42477, 44171 #### [facility] [address] [facility] [place], [place] [id number] [place] [address] CHEST AND LATERALon 02-13-20 CHEST AND LATERAL [facility] Department of Radiology [address] [place] [address] == Patient Name: MANDEEP PURI : 1975 [...] pathology. Electronically signed: Royal Dominguez. Transcribed by: [email or web address], User Resident: Electronically Signed by: ROYAL DOMINUGEZ @ 02/13/2022 11:48 AM Normal [facility] CMV IGG BLOODon 02-12-2022 CMV IGG 3.13 Normal [facility] Comment on above: Result Comment: NORM AL RANGES: < OR = 0.9O NEGATIVE ; NO DETECTABLE IgG ANTIBODY TO CMV 0.91 - 1.09 EQUIVOCAL; REPEAT TESTING SUGGESTED > OR = 1.10 POSITIVE ; INDICATES PRESENCE OF DETECTABLE IgG ANTIBODY TO CMV Performed By: #### 3 1397, 79248, 10134, 62740, 86849 #### [facility] [address] [place] [address], [facility] COMP METABOLIC PANELon 02-12 Albumin [Mass/Vol] 4.5 g/dL Normal 3.5-5.7 [facility] Comment on above: Performed By: #### 2 2505, 97500, 41952 #### [facility] [address] [place] [address], [place] ALKALINE PHOSPH 89 IU/L Normal 34-104 [facility] Comment on above: Performed By: #### 2 2505, 96980, 92198 #### [facility] [address] [place] [address], [place] ALT [Catalytic activity/Vol] 12 U/L Normal 7-52 [facility] Comment on above: Performed By: #### 2 2505, 21497, 52568 #### [facility] [address] [place] [address], [place] AST [Catalytic activity/Vol] 13 U/L Normal 13-39 [facility] Comment on above: Performed By: #### 2 2505, 19234, 59230 #### [facility] [address] [place] [address], [place] Bilirubin [Mass/Vol] 0.3 mg/dL Normal 0.3-1.0 [facility] Comment on above: Performed By: #### 2 2505, 50917, 07686 #### [facility] [address] [place] [address], [place] Calcium [Mass/Vol] 9.5 mg/dL Normal 8.6-10.3 [facility] Comment on above: Performed By: #### 2 2505, 76564, 32747 #### [facility] [address] [place] [address], [place] Chloride [Moles/Vol] 103 mmol/L Normal 98-107 [facility] Comment on above: Performed By: #### 2 2505, 50580, 87398 #### [facility] [address] [place] [address], [place] CO2 [Moles/Vol] 22 mmol/L Normal 21-31 [facility] Comment on above: Performed By: #### 2 2505, 12749, 18529 #### [facility] [address] [place] [address], [place] Creatinine [Mass/Vol] 3.51 mg/dL High 0.60-1.20 [facility] Comment on above: Performed By: #### 2 2505, , 36842 #### [facility] [address] [place] [address], [place] eGFR- 17 ml/min/1.73sq m Abnormal >60 [facility] Comment on above: Performed By: #### 2 2505, , 82716 #### [facility] [address] [place] [address], [place] eGFR- non- 14 ml/min/1.73sq m Abnormal >60 [facility] Comment on above: Performed By: #### 2 2505, 83736, 40009 #### [facility] [address] [place] [address], [place] Glucose [Mass/Vol] 100 mg/dL Normal 70-100 [facility] Comment on above: Performed By: #### 2 2505, 65516, 96448 #### [facility] [address] [place] [address], [place] Potassium [Moles/Vol] 3.9 mmol/L Normal 3.5-5.1 [facility] Comment on above: Performed By: #### 2 2505, 50752, 31122 #### [facility] [address] [place] [address], [place] Protein [Mass/Vol] 8.0 g/dL Normal 6.0-8.3 [facility] Comment on above: Performed By: #### 2 2505, 58686, 29557 #### [facility] [address] [place] [address], [facility] Sodium [Moles/Vol] 136 mmol/L Normal 136-145 [facility] Comment on above: Performed By: #### 2 2505, 43415, 78523 #### [facility] [address] [facility] [place] [address], [facility] Urea nitrogen [Mass/Vol] 41 mg/dL High 7-25 [facility] Comment on above: Performed By: #### 2 2505, 02938, 02230 #### [facility] [address] [place] [address], [facility] CREATININE URINE RANDOMon Creatinine (U) [Mass/Vol] 63.0 mg/dL Normal [facility] Comment on above: Result Comment: Ther e are no established reference values for random urine specimens Performed By: #### 3 1397, 85719, 64187, 50413, 15898 #### [facility] [address] [place] [address], [facility] CT RENAL RECIPIENT ABDOMEN A ND PEVLIS WO CONTRASTon 02-12-2022 CT RENAL RECIPIENT ABDOMEN AND PEVLIS WO CONTRAST [facility] Department of Radiology [address] [place] [id number] == Patient Name: MANDEEP PURI : 1975 Sex: F Age: Race: White Pt. Location: 20 Patient Status: O Ordered Date: 02/12/2022 1:55:00 PM Completed Date: 02/12/2022 02:04 PM Requesting Provider: HAIDER FRNECH Attending Provider: HAIDER FRENCH Report Copy To: [...] achievable. Electronically signed: NAN SARAVIA. Transcribed by: [email or web address], User Resident: Electronically Signed by: NAN SARAVIA @ 02/12/2022 02:59 PM Normal [facility] Comment on above: Order Comment: [...] Bilirubin.direct [Mass/Vol] 0.0 mg/dL Normal 0.0-0.2 [facility] Comment on above: Performed By: #### 2 9845, 13652, 93331 #### [facility] [address] [place] [address], [facility] BRETT LAGUERRE VIRUS ABon 05-1 EB VCA IGG 2.35 Normal [facility] Comment on above: Order Comment: CONSI STENT WITH PAST EBV INFECTION Result Comment: NORM AL RANGES: < OR = 0.9O NEGATIVE ; NO DETECTABLE IgG ANTIBODY TO EBV-VCA 0.91 - 1.09 EQUIVOCAL; REPEAT TESTING SUGGESTED > OR = 1.10 POSITIVE ; INDICATES PRESENCE OF DETECTABLE IgG ANTIBODY TO EBV Performed By: #### 3 1397, 62510, 77815, 56585, 90963 #### [facility] [address] [facility] EB VCA IGM 0.00 Normal [facility] Comment on above: Order Comment: CONSI STENT WITH PAST EBV INFECTION Result Comment: NORM AL RANGES: < OR = 0.9O NEGATIVE ; NO SIGNIFICANT LEVEL OF DETECTABLE EBV-VCA IgM AB 0.91 - 1.09 EQUIVOCAL; REPEAT TESTING SUGGESTED > OR = 1.10 POSITIVE ; SIGNIFICANT LEVEL OF DETECTABLE EBV-VCA IgM AB Performed By: #### 3 1397, 79235, 63573, 26043, 36064 #### [facility] [address] HEMOGLOBIN A1Con 02-12-2022 Glucose [Moles/Vol] 120 mmol/L Normal [facility] Comment on above: Performed By: #### 8 5123, 16390 #### [facility] [employer] [address] [facility]. [address] HbA1c (Bld) [Mass fraction] 5.8 % Normal 4.0-6.0 [facility] Comment on above: Performed By: #### 8 5123, 74225 #### [facility] [employer] [employer] [address] [facility]. [address] HEPATITIS A ANTIBODY IGMon 0 02-12-2022 HEP A AB IGM Non-Reactive Normal NONREACTIVE [facility] Comment on above: Performed By: #### 3 1397, 12538, 61884, 68906, 96249 #### [facility] [employer] [address] [place] [address], [facility] HEPATITIS B CORE ANTIBODYon 02-12-2022 HEP B CORE AB Non-Reactive Normal NONREACTIVE [facility] Comment on above: Performed By: #### 3 1397, 80982, 46112, 18412, 65877 #### [facility] [address] [place] [address], [facility] HEPATITIS B SURFACE ANTIBODY QUANTon 02-12-2022 HEP B SURF AB 1.14 mIU/ml Normal [facility] Comment on above: Result Comment: INTE RPRETATION: NONREACTIVE<8.00 mIU/mL INDETERMINATE8.00 - 12.00 mIU/mL REACTIVE>12 mIU/mL Performed By: #### 3 1397, 85106, 07425, 69738, 84242 #### [facility] [employer] [address] HEPATITIS B SURFACE ANTIGEN QUALon 02-12-2022 HEP B SURF AG QUAL Non-Reactive Normal NONREACTIVE [facility] Comment on above: Performed By: #### 3 1397, 42436, 28040, 20915, 97669 #### [facility] [employer] [address] [facility] [address] HEPATITIS C ANTIBODYon 02-12 ANTI-HCV Non-Reactive Normal NONREACTIVE [facility] Comment on above: Performed By: #### 3 1397, 19786, 19342, 57144, 29958 #### [facility] [address] HIV1 AND 2 COMBO 4Gon 2021 HIV COMBO Negative Normal NEGATIVE [facility] Comment on above: Performed By: #### 3 1397, 52536, 68167, 36648, 66695 #### [facility] [employer] [address] [facility]. [address] HLA ABC CLASS I TYPINGon A*-1 EQUIVALENT 1 Normal [facility] Comment on above: Order Comment: [...] to frequency. Performed By: #### 3 1397, 93324, 67104, 46993, 66250 #### [facility] [employer] [employer] [address] [place] [address], [facility] A*-2 EQUIVALENT 2 Normal [facility] Comment on above: Order Comment: [...] to frequency. Performed By: #### 3 1397, 79595, 82806, 41867, 68337 #### [facility] [employer] [address] [place] [address], [facility] B*-1 EQUIVALENT 35 Normal [facility] Comment on above: Order Comment: Some [...] to frequency. Performed By: #### 3 1397, 21930, 94889, 57099, 31090 #### [facility] [employer] [address] [place] [address], [place] B*-2 EQUIVALENT 37 Normal [facility] Comment on above: Order Comment: [...] to frequency. Performed By: #### 3 1397, 62206, 43902, 63984, 12927 #### [facility] [employer] [address] [place] [address], [facility] Bw*-1 EQUIVALENT 4 Normal [facility] Comment on above: Order Comment: [...] to frequency. Performed By: #### 3 1397, 13566, 65280, 52991, 64648 #### [facility] [employer] [address] [place] [address], [facility] Bw*-2 EQUIVALENT 6 Normal [facility] Comment on above: Order Comment: [...] to frequency. Performed By: #### 3 1397, 63042, 51408, 21029, 13436 #### [facility] [employer] [address] [place] [address], [facility] C*-1 EQUIVALENT 4 Normal [facility] Comment on above: Order Comment: [...] to frequency. Performed By: #### 3 1397, 34456, 34177, 32475, 79251 #### [facility] [address] C*-2 EQUIVALENT 6 Normal [facility] Comment on above: Order Comment: Some [...] to frequency. Performed By: #### 3 1397, 51947, 59007, 50470, 39542 #### [facility] [employer] [address] METHOD Class I Typing by PCR-SSOP Luminex Normal [facility] Comment on above: Order Comment: Some [...] to frequency. Performed By: #### 3 1397, 17876, 58769, 40968, 83989 #### [facility] [employer] [address] [place] [address], [facility] SIGNED BY Normal [facility] Comment on above: Order Comment: [...] to frequency. Result Comment: Sree Noriega, MS,CHT(DONA),MT(ASCP) Buffing [employer], Transplant Immunology Performed By: #### 3 1397, 46311, 38684, 75014, 35226 #### [facility] [employer] [address] [place] [address], [facility] HLA DR CLASS II TYPINGon DPB1*-1 EQUIVALENT 04:01 Normal [facility] Comment on above: Order Comment: [...] to frequency. Performed By: #### 3 1397, 37138, 00907, 34387, 23831 #### [facility] [employer] [address] [place] [address], [facility] DPB1*-2 EQUIVALENT 04:02 Normal [facility] Comment on above: Order Comment: [...] to frequency. Performed By: #### 3 1397, 21941, 22034, 90112, 36077 #### [facility] [employer] [address] [place] [address], [facility] DQA1*-1 EQUIVALENT 01 Normal [facility] Comment on above: Order Comment: [...] to frequency. Performed By: #### 3 1397, 38616, 05148, 55382, 13479 #### [facility] [employer] [address] [place] [address], [facility] DQA1*-2 EQUIVALENT 05 Normal [facility] Comment on above: Order Comment: [...] to frequency. Performed By: #### 3 1397, 52579, 47542, 09797, 68776 #### [facility] [employer] [address] [place] [address], [place] DQB1*-1 EQUIVALENT 7 Normal [facility] Comment on above: Order Comment: [...] to frequency. Performed By: #### 3 1397, 47333, 23711, 44731, 43503 #### [facility] [employer] [address] [facility] [place] [id number], [place] DQB1*-2 EQUIVALENT 5 Normal [facility] Comment on above: Order Comment: [...] to frequency. Performed By: #### 3 1397, 57314, 69467, 42009, 22050 #### [facility] [employer] [address] [place] [address], [facility] DRB1*-1 EQUIVALENT 10 Normal [facility] Comment on above: Order Comment: Some [...] to frequency. Performed By: #### 3 1397, 60380, 62089, 11393, 96920 #### [facility] [employer] [address] [place] [address], [facility] DRB1*-2 EQUIVALENT 11 Normal [facility] Comment on above: Order Comment: [...] to frequency. Performed By: #### 3 1397, 56047, 85355, 78956, 69416 #### [facility] [employer] [address] [place] [address], [facility] DRB3*-1 EQUIVALENT 52 Normal [facility] Comment on above: Order Comment: [...] to frequency. Performed By: #### 3 1397, 37852, 86821, 12313, 91536 #### [facility] [employer] [address] [place] [address], [facility] METHOD Class II Typing by PCR-SSOP Luminex Normal [facility] Comment on above: Order Comment: [...] to frequency. Performed By: #### 3 1397, 84788, 20931, 21258, 25861 #### [facility] [employer] [address] [place] [address], [facility] LIPID PROFILEon 02-12-2022 Cholesterol [Mass/Vol] 221 mg/dL High 120-200 Th e [facility] Comment on above: Result Comment: CHOL ESTEROL REFERENCE RANGE: 20 YEARS AND OLDER CARDIOVASCULAR RISK Less than 200 mg/dl Low Risk 200 to 239 mg/dl Borderline Risk 240 mg/dl and greater High Risk Performed By: #### 3 1397, 78761, 84004, 26981, 38937 #### [facility] [employer] [address] [place] [address], [facility] Cholesterol in HDL [Mass/Vol] 40 mg/dL Normal 23-92 [facility] Comment on above: Result Comment: Slig ht variation in normal range could be due to gender and/or age. HDL CHOLESTEROL REFERENCE RANGE: 20 years and older Cardiovascular Risk > or =60 mg/dL Desirable 40 TO 59 mg/dL Low Risk <40 mg/dL High Risk Performed By: #### 3 1397, 49000, 10274, 48080, 96487 #### [facility] [employer] [employer] [address] [place] [address], [facility] Cholesterol in LDL [Mass/Vol] 101 mg/dL Normal 0-130 [facility] Comment on above: Result Comment: LDL IS A CALCULATION LDL IS ONLY VALID IF THE TRIG IS LESS THAN 400. Performed By: #### 3 1397, 04264, 82358, 11069, 48218 #### [facility] [employer] [address] [facility] [address] Cholesterol.total/Patt sterol in HDL [Mass ratio] 5.5 {ratio} High .0-4.5 [facility] Comment on above: Performed By: #### 3 1397, 13494, 04309, 03108, 72764 #### [facility] [employer] [address] NON-HDL CHOLESTEROL 181 mg/dL Normal [facility] Comment on above: Performed By: #### 3 1397, 72062, 07970, 80325, 41596 #### [facility] [employer] [employer] [address] [facility] [address] Triglyceride [Mass/Vol] 402 mg/dL High 40-149 T [facility] Comment on above: Result Comment: TRIG LYCERIDE REFERENCE RANGE: 20 YEARS AND OLDER CARDIOVASCULAR RISK LESS THAN 150 mg/dl LOW RISK 150 TO 199 mg/dl BORDERLINE RISK 200 mg/dl AND GREATER HIGH RISK Performed By: #### 3 1397, 35758, 77475, 82659, 81958 #### [facility] [employer] [address] VLDL CHOL 80 mg/dL High 0-40 [facility] Comment on above: Performed By: #### 3 1397, 85476, 56064, 09700, 36420 #### [facility] [employer] [address] [facility] [address] MUMPS IGG BLDon 02-12-2022 MUMPS IGG 5.46 Normal [facility] Comment on above: Result Comment: NORM AL RANGES: < OR = 0.9O NEGATIVE ; NO DETECTABLE IgG ANTIBODY TO MUMPS 0.91 - 1.09 EQUIVOCAL; REPEAT TESTING SUGGESTED > OR = 1.10 POSITIVE ; INDICATES PRESENCE OF DETECTABLE IgG ANTIBODY TO MUMPS Performed By: #### 3 1397, 56831, 95172, 66619, 99144 #### [facility] [employer] [employer] [address] [place] [address], [facility] RUBELLAon 02-12-2022 RUBELLA 4.79 Normal [facility] Comment on above: Result Comment: NORM AL RANGES: < OR = 0.9O NEGATIVE ; NO DETECTABLE IgG ANTIBODY TO RUBELLA 0.91 - 1.09 EQUIVOCAL; REPEAT TESTING SUGGESTED > OR = 1.10 POSITIVE ; INDICATES PRESENCE OF DETECTABLE IgG ANTIBODY TO RUBELLA VIRUS Performed By: #### 3 1397, 33994, 95040, 85733, 12184 #### [facility] [employer] [employer] [address] [place] [address], [facility] RUBEOLA MEASLES IGGon 2021 RUBEO IGG 6.43 Normal [facility] Comment on above: Result Comment: NORM AL RANGES: < OR = 0.9O NEGATIVE ; NO DETECTABLE IgG ANTIBODY TO RUBEOLA 0.91 - 1.09 EQUIVOCAL; REPEAT TESTING SUGGESTED > OR = 1.10 POSITIVE ; INDICATES PRESENCE OF DETECTABLE IgG ANTIBODY TO RUBEOLA Performed By: #### 3 1397, 24471, 72381, 40008, 56959 #### [facility] [employer] [employer] [address] SINGLE ANTIGEN CLASS 1on METHOD Class I Single Antigen Normal Th e [facility] Comment on above: Order Comment: [...] to frequency. Performed By: #### 3 1397, 53693, 53130, 53087, 31294 #### [facility] [employer] [address] [place] [address], [facility] SINGLE ANTIGEN CLASS 2on COMMENTS Normal [facility] Comment on above: Order Comment: Some [...] watch list. Performed By: #### 3 1397, 96608, 76323, 14999, 17380 #### [facility] [employer] [address] [facility] [address] Result Comment: Clas s I Antigen Microbeads Potential specificites added to the watch list. CPRA 0 Normal [facility] Comment on above: Order Comment: [...] to frequency. Performed By: #### 3 1397, 10269, 90251, 24997, 86492 #### [facility] [employer] [employer] [address] [place] [address], [facility] METHOD Class II Single Antigen Normal T [facility] Comment on above: Order Comment: [...] to frequency. Performed By: #### 3 1397, 27519, 08961, 81342, 61248 #### [facility] [employer] [address] [place] [address], [facility] T PROT UR Yesy 02-12-2022 U TOTAL PROTEIN 44.0 mg/dL Normal [facility] Comment on above: Result Comment: Ther e are no established reference values for random urine specimens Performed By: #### 3 1397, 02077, 89402, 55999, 62701 #### [facility] [employer] [address] [place] [address], [facility] TB QUANTIFERON PLUSon 2021 MITOGEN MINUS NIL >10.00 Normal [facility] Comment on above: Performed By: #### 3 1592 #### [facility] [employer] [address] [place] [address], [facility] NIL 0.03 IU/mL Normal [facility] Comment on above: Performed By: #### 3 1592 #### [facility] [address] TB QUANTIFERON Negative Normal NEGATIVE [facility] Comment on above: Result Comment: Jadiel tiferon TB Gold Interpretation (IU/mL): NEGATIVE: M. tuberculosis infection not likely. Nil: <=8.0 TB1 Antigen minus Nil ([id number]): <0.35 OR >=0.35; and <25% of Nil value. TB2 Antigen minus Nil ([id number]): <0.35 OR >=0.35; and <25% of Nil [...] 1592 #### [facility] [address] [place] [address], [facility] TB1 AG 0.05 IU/mL Normal [facility] Comment on above: Performed By: #### 3 1592 #### [facility] [address] [place] [address], [place] TB1 AG MINUS NIL 0.02 IU/mL Normal [facility] Comment on above: Performed By: #### 3 1592 #### [facility] [address] [place] [address], [place] TB2 AG 0.05 IU/mL Normal [facility] Comment on above: Performed By: #### 3 1592 #### [facility] [address] [place] [address], [place] TB2 AG MINUS NIL 0.02 IU/mL Normal [facility] Comment on above: Performed By: #### 3 1592 #### [facility] [address] [place] [address], [place] UA,MICROSCOPIC REQUIREDon Appearance (U) SL CLOUDY Abnormal CLEAR [facility] Comment on above: Performed By: #### 3 1397, 05091, 31066, 03908, 50411 #### [facility] [address] [facility] [place] [address], [place] Bilirubin Ql (U) Negative Normal NEGATIVE [facility] Comment on above: Performed By: #### 3 1397, 87421, 68807, 42560, 55001 #### [facility] [employer] [address] [place] [address], [place] Color (U) STRAW Abnormal YELLOW [facility] Comment on above: Performed By: #### 3 1397, 21612, 56432, 06102, 21890 #### [facility] [employer] [address] [place] [address], [place] EPIS MANY Abnormal FEW,OCC,NONE SEEN [facility] Comment on above: Performed By: #### 3 1397, 84651, 68137, 96946, 87752 #### [facility] [employer] [address] [place] [address], [place] Glucose Ql (U) 50 mg/dL Abnormal NEGATIVE [facility] Comment on above: Performed By: #### 3 1397, 40705, 14633, 76635, 45111 #### [facility] [address] [place] [address], [place] Hemoglobin Ql (U) Negative Normal NEGATIVE [facility] Comment on above: Performed By: #### 3 1397, 04311, 50924, 00156, 22250 #### [facility] [address] [place] [address], [facility] KETONE Negative Normal NEGATIVE [facility] Comment on above: Performed By: #### 3 1397, 16259, 66376, 37538, 63274 #### [facility] [address] [place] [address], [facility] LEUK MARYAN MODERATE Abnormal NEGATIVE [facility] Comment on above: Performed By: #### 3 1397, 11572, 45009, 33018, 07022 #### [facility] [address] [place] [address], [facility] Nitrite Ql (U) Negative Normal NEGATIVE [facility] Comment on above: Performed By: #### 3 1397, 91480, 25865, 01245, 12763 #### [facility] [address] [place] [address], [facility] pH (U) 7.0 [pH] Normal 5.0-8.0 [facility] Comment on above: Performed By: #### 3 1397, 22185, 10616, 32872, 29173 #### [facility] [address] [place] [address], [facility] Protein Ql (U) 30 mg/dL Abnormal NEGATIVE [facility] Comment on above: Performed By: #### 3 1397, 65683, 54630, 36965, 55533 #### [facility] [address] [place] [address], [place] RBC NONE SEEN Normal NONE SEEN [facility] Comment on above: Performed By: #### 3 1397, 88421, 44627, 96482, 37689 #### [facility] [address] [facility]. [address] SPEC GRAV 1.009 Low 1.015-1.020 [facility] Comment on above: Performed By: #### 3 1397, 07804, 81084, 69027, 21478 #### [facility] [address] [facility]. [address] WBC UA 11-20 Abnormal NONE SEEN [facility] Comment on above: Performed By: #### 3 1397, 35401, 22116, 31705, 14041 #### [facility] [employer] [address] [facility]. [address] VARICELLA ZOSTER IGGon 02-12 VARICELLA IGG 3.29 Normal [facility] Comment on above: Result Comment: NORM AL RANGES: < OR = 0.9O NEGATIVE ; NO DETECTABLE IgG ANTIBODY TO VARICELLA-ZOSTER VIRUS 0.91 - 1.09 EQUIVOCAL; REPEAT TESTING SUGGESTED > OR = 1.10 POSITIVE ; INDICATES PRESENCE OF DETECTABLE IgG ANTIBODY TO VARICELLA-ZOSTER VIRUS Performed By: #### 3 1397, 27521, 99094, 32895, 03367 #### [facility] [address] [facility]. [address] PTH INTACTon 12-04-2021 PTH, Intact 165 pg/mL Critically high 15-65 [facility] Comment on above: Performed By: #### M G, URIC, RENAL #### [facility] [address] [place] [address] [address] Hari Palmer FERRITINon 12-03-2021 Ferritin [Mass/Vol] 256.0 ng/mL Critically high 6.2-137.0 [facility] Comment on above: Performed By: #### M G, URIC, RENAL #### [facility] [address] [place] [address] [address] Hari Palmer HEMOGRAM AND PLATELon 2021 Hematocrit (Bld) [Volume fraction] 33.7 % Critically low 36.0-48.0 [facility] Comment on above: Performed By: #### M Edy, URIC, RENAL #### [facility] [address] [place] [address] Dr. Hari Palmer Hemoglobin (Bld) [Mass/Vol] 10.9 g/dL Critically low 12.0-16.0 [facility] Comment on above: Performed By: #### M G, URIC, RENAL #### [facility] [address] [place] [address] Dr. Hari Palmer MCH (RBC) [Entitic mass] 31.4 pg Normal 26.7-34.0 [facility] Comment on above: Performed By: #### M Edy, URIC, RENAL #### [facility] [address] [place] [address] Dr. Hari Palmer MCHC (RBC) [Mass/Vol] 32.3 g/dL Normal 29.9-35.2 [facility] Comment on above: Performed By: #### M G, URIC, RENAL #### [facility] [address] [place] [address] Dr. Hari Palmer MCV (RBC) [Entitic vol] 97.1 fL Normal 81.0-99.0 [facility] Comment on above: Performed By: #### M G, URIC, RENAL #### [facility] [address] [place] [address] Dr. Hari Palmer PLT 314 103/ul Normal 150-450 [facility] Comment on above: Performed By: #### M G, URIC, RENAL #### [facility] [address] [place] [address] Dr. Hari Palmer RBC 3.47 106/ul Critically low 4.20-5.40 [facility] Comment on above: Performed By: #### M G, URIC, RENAL #### [facility] [address] [place] [address] Dr. Hari Palmer WBC 9.4 103/ul Normal 4.0-11.0 [facility] Comment on above: Performed By: #### M G, URIC, RENAL #### [facility] [address] [place] [address] Dr. Hari Palmer IRON AND TIBCon 12-03-2021 % SATURATION 19.0 % Normal [facility] Comment on above: Performed By: #### M G, URIC, RENAL #### [facility] [address] [place] [address] Dr. Hari Palmer Iron [Mass/Vol] 52.0 ug/dL Normal 37.0-170.0 [facility] Comment on above: Performed By: #### M G, URIC, RENAL #### [facility] [address] [place] [address] Dr. Hari Palmer TIBC DIRECT 273.0 ug/dL Normal 261.0-497.0 [facility] Comment on above: Performed By: #### M G, URIC, RENAL #### [facility] [address] [place] [address] Dr. Hari Palmer MAGNESIUMon 12-03-2021 Magnesium [Mass/Vol] 2.1 mg/dL Normal 1.6-2.3 [facility] Comment on above: Performed By: #### M G, URIC, RENAL #### [facility] [address] [place] [address] Dr. Hari Palmer RENAL FUNCTION PANELon 12-03 Albumin [Mass/Vol] 3.6 g/dL Normal 3.5-5.0 [facility] Comment on above: Performed By: #### M G, URIC, RENAL #### [facility] [address] [place] [address] Dr. Hari Palmer Calcium [Mass/Vol] 8.4 mg/dL Normal 8.4-10.2 [facility] Comment on above: Performed By: #### M G, URIC, RENAL #### [facility] [address] [place] [address] Dr. Hari Palmer Chloride [Moles/Vol] 101 mmol/L Normal 98-107 [facility] Comment on above: Performed By: #### M G, URIC, RENAL #### [facility] [facility] [address] [place] [address] Dr. Hari Palmer CO2 [Moles/Vol] 24.3 mmol/L Normal 22.0-30.0 [facility] Comment on above: Performed By: #### M G, URIC, RENAL #### [facility] [address] [address] [address] Hari Palmer Creatinine [Mass/Vol] 3.32 mg/dL Critically high 0.52-1.04 [facility] Comment on above: Performed By: #### M G, URIC, RENAL #### [facility] [address] [place] [address] Dr. Hari Palmer EGFR-AF GEORGIAN 18 mL/min/1.73m2 Critically low >=60 [facility] Comment on above: Performed By: #### M Edy, URIC, RENAL #### [facility] [address] [place] [address] Dr. aHri Palmer EGFR-NON AF GEORGIAN 15 mL/min/1.73m2 Critically low >=60 [facility] Comment on above: Performed By: #### M Edy, URIC, RENAL #### [facility] [address] [address] [address] Hari Palmer Glucose [Mass/Vol] 119 mg/dL Critically high 74-106 [facility] Comment on above: Performed By: #### M Edy, URIC, RENAL #### [facility] [address] [place] [address] Dr. Hari Palmer Phosphate [Mass/Vol] 4.7 mg/dL Critically high 2.5-4.5 [facility] Comment on above: Performed By: #### M G, URIC, RENAL #### [facility] [address] [place] [address] Dr. Hari Palmer Potassium [Moles/Vol] 4.0 mmol/L Normal 3.4-5.0 [facility] Comment on above: Performed By: #### M G, URIC, RENAL #### [facility] [address] [address] [address] Hari Palmer Sodium [Moles/Vol] 135 mmol/L Critically low 137-145 [facility] Comment on above: Performed By: #### M Edy, URIC, RENAL #### [facility] [address] [place] [address] Dr. Hari Palmer Urea nitrogen [Mass/Vol] 42.0 mg/dL Critically high 7.0-17.0 [facility] Comment on above: Performed By: #### M G, URIC, RENAL #### [facility] [address] [place] [address] Dr. Hari Palmer UA RANDOM W/MICROSCOPICon BACTERIA TRACE Abnormal NONE SEEN [facility] Comment on above: Performed By: #### U AMIC #### [facility] [address] [place] [address] Dr. Hari Palmer Bilirubin Ql (U) Negative Normal NEGATIVE [facility] Comment on above: Performed By: #### U AMIC #### [facility] [address] [place] [address] Dr. Hari Palmer CAST NONE SEEN Normal NONE SEEN [facility] Comment on above: Performed By: #### U AMIC #### [facility] [address] [place] [address] Dr. Hari Palmer Clarity (U) CLEAR Normal CLEAR [facility] Comment on above: Performed By: #### U AMIC #### [facility] [address] [place] [address] Dr. Hari Palmer Color (U) LT. YELLOW Normal YELLOW [facility] Comment on above: Performed By: #### U AMIC #### [facility] [address] [place] [address] Dr. Hari Palmer Crystals LM Nom (Urine sed) NONE SEEN Normal NONE SEEN [facility] Comment on above: Performed By: #### U AMIC #### [facility] [address] [place] [address] Dr. Hari Palmer Epithelial cells LM Ql (Urine sed) FEW Abnormal NONE SEEN /RARE [facility] Comment on above: Performed By: #### U AMIC #### [facility] [address] [place] [address] Dr. Hari Palmer Glucose Ql (U) 100 mg/dl Abnormal NEGATIVE [facility] Comment on above: Performed By: #### U AMIC #### [facility] [address] [address] [address] Hari Palmer Hemoglobin Ql (U) TRACE-INTACT Abnormal NEGATIVE [facility] Comment on above: Performed By: #### U AMIC #### [facility] [address] [address] [address] Hari Palmer Ketones Ql (U) Negative Normal NEGATIVE [facility] Comment on above: Performed By: #### U AMIC #### [facility] [address] [address] [address] Hari Palmer LEUKOCYTES SMALL Abnormal NEGATIVE [facility] Comment on above: Performed By: #### U AMIC #### [facility] [address] [place] [address] Dr. Hari Palmer MUCOUS NONE SEEN Normal NONE SEEN [facility] Comment on above: Performed By: #### U AMIC #### [facility] [address] [place] [address] Dr. Hari Palmer Nitrite Ql (U) Negative Normal NEGATIVE [facility] Comment on above: Performed By: #### U AMIC #### [facility] [address] [place] [address] Dr. Hari Palmer pH (U) 6.0 [pH] Normal 5-9 [facility] Comment on above: Performed By: #### U AMIC #### [facility] [address] [place] [address] Dr. Hari Palmer RBC 0-2 Normal 0-2 [facility] Comment on above: Performed By: #### U AMIC #### [facility] [address] [place] [address] Dr. Hari Palmer SPEC GRAVITY 1.010 Normal 1.005-<=1.02 5 [facility] Comment on above: Performed By: #### U AMIC #### [facility] [address] [place] [address] Dr. Hari Palmer UA PROTEIN Negative Normal NEGATIVE/ TRACE [facility] Comment on above: Performed By: #### U AMIC #### [facility] [address] [address] [address] Hari Palmer Urobilinogen Qn (U) 0.2 {Janice'U}/dL Normal 0.2 - 1. 0 [facility] Comment on above: Performed By: #### U AMIC #### [facility] [address] [place] [address] Dr. Hari Palmer WBC 5-10 Abnormal NONE SEEN [facility] Comment on above: Performed By: #### U AMIC #### [facility] [address] [address] [address] Hari Palmer URIC ACID SERUMon 12-03-2021 Urate [Mass/Vol] 4.6 mg/dL Normal 2.5-6.2 [facility] Comment on above: Performed By: #### M G, URIC, RENAL #### [facility] [address] [place] [address] Dr. Hari Palmer URINE T PROTEIN CREAT RATIOo n 12-03-2021 Protein (U) [Mass/Vol] 31.7 mg/dL Critically high <=12.0 [facility] Comment on above: Performed By: #### M G, URIC, RENAL #### [facility] [address] [place] [address] Dr. Hari Palmer UR PROT CREAT RAT 0.54 Normal [facility] Comment on above: Performed By: #### M G, URIC, RENAL #### [facility] [address] [place] [address] Dr. Hari Palmer URINE CREAT 59.03 mg/dL Normal 20.00-300.00 [facility] Comment on above: Performed By: #### M G, URIC, RENAL #### [facility] [address] [place] [address] Dr. Hari Palmer VITAMIN D 25 OHon 12-03-2021 VIT D 25-OH 38.1 ng/mL Normal [facility] Comment on above: Performed By: #### M G, URIC, RENAL #### [facility] [address] [place] [address] Dr. Hari Palmer VIT D RANGES SEE BELOW Normal [facility] Comment on above: Result Comment: <20 ng/mL Vit D deficient 20 - <30 ng/mL Vit D insufficient 30 - 100 ng/mL Vit D sufficient >100 ng/mL Potential Toxicity Performed By: #### M G, URIC, RENAL #### [facility] [address] [place] [address] Dr. Hari Palmer PTH INTACTon 09-03-2021 PTH, Intact 177 pg/mL Critically high 15-65 [facility] Comment on above: Performed By: #### P THINT #### [facility] [address] [place] [address] Dr. Hari Palmer CBC AUTO DIFFon 09-01-2021 BASO # 0.1 103/ul Normal 0.0-0.1 [facility] Comment on above: Performed By: #### M G, URIC, RENAL #### [facility] [address] [place] [address] Dr. Hari Palmer Basophils/100 WBC (Bld) 0.6 % Normal 0.2-2.0 [facility] Comment on above: Performed By: #### M G, URIC, RENAL #### [facility] [address] [place] [address] Dr. Hari Palmer EO # 0.3 103/ul Normal 0.0-0.7 [facility] Comment on above: Performed By: #### M G, URIC, RENAL #### [facility] [address] [place] [address] Dr. Hari Palmer Eosinophils/100 WBC (Bld) 3.5 % Normal 0.9-7.0 [facility] Comment on above: Performed By: #### M G, URIC, RENAL #### [facility] [address] [place] [address] Dr. Hari Palmer Erythrocyte distribution width (RBC) [Ratio] 13.8 % Normal 11.0-15.0 [facility] Comment on above: Performed By: #### M G, URIC, RENAL #### [facility] [address] [place] [address] Dr. Hari Palmer Hematocrit (Bld) [Volume fraction] 32.8 % Critically low 36.0-48.0 [facility] Comment on above: Performed By: #### M G, URIC, RENAL #### [facility] [address] [place] [address] Dr. Hari Palmer Hemoglobin (Bld) [Mass/Vol] 10.6 g/dL Critically low 12.0-16.0 [facility] Comment on above: Performed By: #### M G, URIC, RENAL #### [facility] [address] [place] [address] Dr. Hari Palmer IG # 0.14 10e3/ul Critically high 0.00-0.03 [facility] Comment on above: Performed By: #### M G, URIC, RENAL #### [facility] [address] [place] [address] Dr. Hari Palmer IG % 1.5 % Critically high 0.0-0.5 [facility] Comment on above: Performed By: #### M G, URIC, RENAL #### [facility] [address] [place] [address] Dr. Hari Palmer LYMPH # 1.8 103/ul Normal 1.2-3.8 [facility] Comment on above: Performed By: #### M G, URIC, RENAL #### [facility] [address] [place] [address] Dr. Hari Palmer Lymphocytes/100 WBC (Bld) 19.3 % Critically low 20.5-60.0 [facility] Comment on above: Performed By: #### M G, URIC, RENAL #### [facility] [address] [place] [address] Dr. Hari Palmer MANUAL DIFF REQ NO Normal [facility] Comment on above: Performed By: #### M G, URIC, RENAL #### [facility] [address] [place] [address] Dr. Hari Palmer MCH (RBC) [Entitic mass] 31.4 pg Normal 26.7-34.0 [facility] Comment on above: Performed By: #### M G, URIC, RENAL #### [facility] [address] [place] [address] Dr. Hari Palmer MCHC (RBC) [Mass/Vol] 32.3 g/dL Normal 29.9-35.2 [facility] Comment on above: Performed By: #### M G, URIC, RENAL #### [facility] [address] [place] [address] Dr. Hari Palmer MCV (RBC) [Entitic vol] 97.0 fL Normal 81.0-99.0 [facility] Comment on above: Performed By: #### M G, URIC, RENAL #### [facility] [address] [place] [address] Dr. Hari Palmer MONO # 0.4 103/ul Normal 0.3-0.8 [facility] Comment on above: Performed By: #### M Edy, URIC, RENAL #### [facility] [address] [place] [address] Dr. Hari Palmer Monocytes/100 WBC (Bld) 4.2 % Normal 1.7-12.0 [facility] Comment on above: Performed By: #### M Edy, URIC, RENAL #### [facility] [address] [place] [address] Dr. Hari Palmer NEUT # 6.5 103/ul Normal 1.4-6.5 [facility] Comment on above: Performed By: #### M Edy, URIC, RENAL #### [facility] [address] [place] [address] Dr. Hari Palmer Neutrophils/100 WBC (Bld) 70.9 % Normal 43.0-75.0 [facility] Comment on above: Performed By: #### M G, URIC, RENAL #### [facility] [address] [place] [address] Dr. Hari Palmer Platelet mean volume (Bld) [Entitic vol] 9.0 fL Critically low 9.5-13.5 [facility] Comment on above: Performed By: #### M G, URIC, RENAL #### [facility] [address] [place] [address] Dr. Hari Palmer PLT 289 103/ul Normal 150-450 [facility] Comment on above: Performed By: #### M Edy, URIC, RENAL #### [facility] [address] [place] [address] Dr. Hari Palmer RBC 3.38 106/ul Critically low 4.20-5.40 [facility] Comment on above: Performed By: #### M G, URIC, RENAL #### [facility] [address] [place] [address] Dr. Hari Palmer WBC 9.1 103/ul Normal 4.0-11.0 [facility] Comment on above: Performed By: #### M G, URIC, RENAL #### [facility] [address] [place] [address] Dr. Hari Palmer FERRITINon 09-01-2021 Ferritin [Mass/Vol] 204.0 ng/mL Critically high 6.2-137.0 [facility] Comment on above: Performed By: #### M G, URIC, RENAL #### [facility] [address] [place] [address] Dr. Hari Palmer IRON AND TIBCon 09-01-2021 % SATURATION 28.4 % Normal [facility] Comment on above: Performed By: #### M G, URIC, RENAL #### [facility] [address] [place] [address] Dr. Hari Palmer Iron [Mass/Vol] 80.0 ug/dL Normal 37.0-170.0 [facility] Comment on above: Performed By: #### M G, URIC, RENAL #### [facility] [address] [place] [address] Dr. Hari Palmer TIBC DIRECT 282.0 ug/dL Normal 261.0-497.0 [facility] Comment on above: Performed By: #### M G, URIC, RENAL #### [facility] [address] [place] [address] Dr. Hari Palmer MAGNESIUMon 09-01-2021 Magnesium [Mass/Vol] 2.2 mg/dL Normal 1.6-2.3 [facility] Comment on above: Performed By: #### U AMIC #### [facility] [address] [place] [address] Dr. Hari Palmer RENAL FUNCTION PANELon 09-01 Albumin [Mass/Vol] 3.5 g/dL Normal 3.5-5.0 [facility] Comment on above: Performed By: #### M G, URIC, RENAL #### [facility] [address] [place] [address] Dr. Hari Palmer Calcium [Mass/Vol] 8.7 mg/dL Normal 8.4-10.2 [facility] Comment on above: Performed By: #### M G, URIC, RENAL #### [facility] [address] [place] [address] Dr. Hari Palmer Chloride [Moles/Vol] 105 mmol/L Normal 98-107 [facility] Comment on above: Performed By: #### M G, URIC, RENAL #### [facility] [address] [place] [address] Dr. Hari Palmer CO2 [Moles/Vol] 21.1 mmol/L Critically low 22.0-30.0 [facility] Comment on above: Performed By: #### M G, URIC, RENAL #### [facility] [address] [place] [address] Dr. Hari Palmer Creatinine [Mass/Vol] 3.63 mg/dL Critically high 0.52-1.04 [facility] Comment on above: Performed By: #### M G, URIC, RENAL #### [facility] [address] [place] [address] Dr. Hari Palmer EGFR-AF GEORGIAN 16 mL/min/1.73m2 Critically low >=60 [facility] Comment on above: Performed By: #### M G, URIC, RENAL #### [facility] [address] [place] [address] Dr. Hari Palmer EGFR-NON AF GEORGIAN 14 mL/min/1.73m2 Critically low >=60 [facility] Comment on above: Performed By: #### M G, URIC, RENAL #### [facility] [address] [place] [address] Dr. Hari Palmer Glucose [Mass/Vol] 115 mg/dL Critically high 74-106 [facility] Comment on above: Performed By: #### M G, URIC, RENAL #### [facility] [address] [place] [address] Dr. Hari Palmer Phosphate [Mass/Vol] 4.6 mg/dL Critically high 2.5-4.5 [facility] Comment on above: Performed By: #### M G, URIC, RENAL #### [facility] [address] [place] [address] Dr. Hari Palmer Potassium [Moles/Vol] 4.2 mmol/L Normal 3.4-5.0 [facility] Comment on above: Performed By: #### M G, URIC, RENAL #### [facility] [address] [place] [address] Dr. Hari Palmer Sodium [Moles/Vol] 138 mmol/L Normal 137-145 [facility] Comment on above: Performed By: #### M G, URIC, RENAL #### [facility] [address] [place] [address] Dr. Hari Palmer Urea nitrogen [Mass/Vol] 50.0 mg/dL Critically high 7.0-17.0 [facility] Comment on above: Performed By: #### M G, URIC, RENAL #### [facility] [address] [place] [address] Dr. Hari Palmer UA RANDOM W/MICROSCOPICon BACTERIA SMALL Abnormal NONE SEEN [facility] Comment on above: Performed By: #### U AMIC #### [facility] [address] [place] [address] Dr. Hari Palmer Bilirubin Ql (U) Negative Normal NEGATIVE [facility] Comment on above: Performed By: #### U AMIC #### [facility] [address] [place] [address] Dr. Hari Palmer CAST NONE SEEN Normal NONE SEEN [facility] Comment on above: Performed By: #### U AMIC #### [facility] [address] [place] [address] Dr. Hari Palmer Clarity (U) CLEAR Normal CLEAR [facility] Comment on above: Performed By: #### U AMIC #### [facility] [address] [address] [address] Hari Palmer Color (U) LT. YELLOW Normal YELLOW [facility] Comment on above: Performed By: #### U AMIC #### [facility] [address] [address] [address] Hari Palmer Crystals LM Nom (Urine sed) NONE SEEN Normal NONE SEEN [facility] Comment on above: Performed By: #### U AMIC #### [facility] [address] [address] [address] Hari Palmer Epithelial cells LM Ql (Urine sed) MODERATE Abnormal NONE SEEN /RARE [facility] Comment on above: Performed By: #### U AMIC #### [facility] [address] [place] [address] Dr. Hari Palmer Glucose Ql (U) Negative Normal NEGATIVE [facility] Comment on above: Performed By: #### U AMIC #### [facility] [address] [place] [address] Dr. Hari Palmer Hemoglobin Ql (U) TRACE-INTACT Abnormal NEGATIVE [facility] Comment on above: Performed By: #### U AMIC #### [facility] [address] [place] [address] Dr. Hari Palmer Ketones Ql (U) Negative Normal NEGATIVE [facility] Comment on above: Performed By: #### U AMIC #### [facility] [address] [place] [address] Dr. Hari Palmer LEUKOCYTES Negative Normal NEGATIVE [facility] Comment on above: Performed By: #### U AMIC #### [facility] [address] [place] [address] Dr. Hari Palmer MUCOUS NONE SEEN Normal NONE SEEN [facility] Comment on above: Performed By: #### U AMIC #### [facility] [address] [place] [address] Dr. Hari Palmer Nitrite Ql (U) Negative Normal NEGATIVE [facility] Comment on above: Performed By: #### U AMIC #### [facility] [address] [place] [address] Dr. Hari Palmer pH (U) 6.0 [pH] Normal 5-9 [facility] Comment on above: Performed By: #### U AMIC #### [facility] [address] [place] [address] Dr. Hari Palmer RBC 2-5 Abnormal 0-2 [facility] Comment on above: Performed By: #### U AMIC #### [facility] [address] [address] [address] Hari Palmer SPEC GRAVITY 1.010 Normal 1.005-<=1.02 5 [facility] Comment on above: Performed By: #### U AMIC #### [facility] [address] [address] [address] Hari Palmer UA PROTEIN Negative Normal NEGATIVE/ TRACE [facility] Comment on above: Performed By: #### U AMIC #### [facility] [address] [place] [address] Dr. Hari Palmer Urobilinogen Qn (U) 0.2 {Janice'U}/dL Normal 0.2 - 1. 0 [facility] Comment on above: Performed By: #### U AMIC #### [facility] [address] [address] [address] Hari Palmer WBC 2-5 Abnormal NONE SEEN [facility] Comment on above: Performed By: #### U AMIC #### [facility] [address] [place] [address] Dr. Hari Palmer URIC ACID SERUMon 09-01-2021 Urate [Mass/Vol] 4.9 mg/dL Normal 2.5-6.2 [facility] Comment on above: Performed By: #### U AMIC #### [facility] [address] [place] [address] Dr. Hari Palmer URINE T PROTEIN CREAT RATIOo n 09-01-2021 Protein (U) [Mass/Vol] 22.2 mg/dL Critically high <=12.0 [facility] Comment on above: Performed By: #### M G, URIC, RENAL #### [facility] [address] [place] [address] Dr. Hari Palmer UR PROT CREAT RAT 0.47 Normal [facility] Comment on above: Performed By: #### M G, URIC, RENAL #### [facility] [facility] [address] [address] [address] Hari Palmer URINE CREAT 46.89 mg/dL Normal 20.00-300.00 [facility] Comment on above: Performed By: #### M G, URIC, RENAL #### [facility] [id number] Hari Palmer VITAMIN D 25 OHon 09-01-2021 VIT D 25-OH 40.5 ng/mL Normal [facility] Comment on above: Performed By: #### M G, URIC, RENAL #### [facility] [address] [place] [address] Dr. Hari Palmer VIT D RANGES SEE BELOW Normal [facility] Comment on above: Result Comment: <20 ng/mL Vit D deficient 20 - <30 ng/mL Vit D insufficient 30 - 100 ng/mL Vit D sufficient >100 ng/mL Potential Toxicity Performed By: #### M G, URIC, RENAL #### [facility] [address] [place] [address] Dr. Hari Palmer CNOVon 03-30-2021 PETROSOV Office Visit (NEPHMN ) -------- MANDEEP PURI ([id number]) 1975 F Date Time Provider Department 03/30/21 9:20 AM PERRI BARRETT NEPHMN During your visit today, we recorded the following information about you: Temperature Pulse Blood pressure Weight 98.2 degrees 75/minute 122/77 93 kg Height 1.549 m Perri Barrett MD 03/30/2021 10:25 AM Signed Mrs. 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 (more content not included)... Normal [facility] Urinalysison 03-30-2021 Bilirubin, Urine Negative Normal Negative [facility] Comment on above: Performed By: #### U A #### [address] [place] [address] Clarity (U) Clear Normal Clear [facility] Comment on above: Performed By: #### U A #### [address] [place] [address] Color (U) Colorless Critically abnormal Yellow [facility] Comment on above: Performed By: #### U A #### [address] [place] [phone] Comments SEE COMMENT Normal [facility] Comment on above: Result Comment: Micr oscopic not warranted Performed By: #### U A #### [facility] [address] [address] Glucose Ql (U) Trace Critically abnormal Negative [facility] Comment on above: Performed By: #### U A #### [facility] [address] [place], [place] [address] Hemoglobin/Blood,Ur Negative Normal Negative [facility] Comment on above: Performed By: #### U A #### [facility] [address] [address] Ketones Ql (U) Negative Normal Negative [facility] Comment on above: Performed By: #### U A #### [address] [place], [place] [address] Leukest Negative Normal Negative [facility] Comment on above: Performed By: #### U A #### [address] [place] [address] Nitrite Ql (U) Negative Normal Negative [facility] Comment on above: Performed By: #### U A #### [place] [address] pH (U) 6.5 [pH] Normal 5.0-8.0 [facility] Comment on above: Performed By: #### U A #### [address] [place] [address] Protein, Urine Negative Normal Negative [facility] Comment on above: Performed By: #### U A #### [address] [place] [address] Specific Erwin, Ur 1.008 Normal 1.005-1.030 [facility] Comment on above: Performed By: #### U A #### [address] [place] [id number] Urine Codi Comment SEE COMMENT Normal [facility] Comment on above: Result Comment: N/A Performed By: #### U A #### [address] [place] [address] Urobilinogen (U) [Mass/Vol] Negative Normal Negative [facility] Comment on above: Performed By: #### U A #### [address] [address] Coding Summary.on 04-21-2020 Coding Summary. CODING DATE: 020 FINAL [facility] STATUS: Home (Routine DC) PAYOR: [facility] [place] [...] Saved: 04/21/2020 05:17 pm Normal [facility] Physician Orderon 04-21-2020 Physician Order [id number]: 127 Normal [facility] Marci 04-12-2020 ALT [Catalytic activity/Vol] 14 U/L Normal 7 - 45 [facility] Comment on above: Result Comment: Kelsea ents treated with Sulfasalazine may generate falsely decreased results for ALT. Performed By: #### A LT #### [facility] [address] [place] [address] Ronald 04-12-2020 AST [Catalytic activity/Vol] 16 U/L Normal 9 - 39 [facility] Comment on above: Performed By: #### A ST #### [facility] [address] [place] [address] CREATININEon 04-12-2020 Creatinine [Mass/Vol] 2.83 mg/dL High 0.50 - 1.05 [facility] Comment on above: Performed By: #### C REAT #### [facility] [address] [place] [address] Creatinine [Mass/Vol] 18 mL/min/1.73m2 Abnormal >60 [facility] Comment on above: Performed By: #### C REAT #### [facility] [address] [place] [address] Creatinine [Mass/Vol] 22 mL/min/1.73m2 Abnormal >60 [facility] Comment on above: Result Comment: CALC ULATIONS OF ESTIMATED GFR ARE PERFORMED USING THE MDRD STUDY EQUATION FOR THE IDMS-TRACEABLE CREATININE METHODS. CLIN CHEM 2007;53:766-72 Performed By: #### C REAT #### [facility] [address] [place] [address] URIC ACIDon 04-12-2020 Urate [Mass/Vol] 5.2 mg/dL Normal 2.3 - 6.7 [facility] Comment on above: Result Comment: Beti puncture immediately after or during the administration of Metamizole may lead to falsely low results. Testing should be performed immediately prior to Metamizole dosing. Performed By: #### U DASHAWN #### [facility] [address] [place] [id number] URIC ACIDon 02-11-2020 Urate [Mass/Vol] 8.2 mg/dL High 2.3 - 6.7 [facility] Comment on above: Result Comment: Beti puncture immediately after or during the administration of Metamizole may lead to falsely low results. Testing should be performed immediately prior to Metamizole dosing. Performed By: #### U DASHAWN #### [facility] [address] [place] [id number] Cult,Urineon 08-04-2019 Cult,Urine Specimen Description .CLEAN CATCH URINE Special Requests NOT REPORTED Culture ESCHERICHIA COLI >[id number] CFU/ML Report Status FINAL 08/04/2019 SUSCEPTIBILITY Organism [...] Trimethoprim/Sulfa <=20 SUSCEPTIBLE Piperacillin/Tazobactam <=4 SUSCEPTIBLE Normal [facility] Comment on above: Performed By: #### D CITLALY, LIP, CMPX, TROPI, BNP, CDP, PT #### [facility] [address] [place] [address] Data Warehouse Manager: Sami Dominguez MD Brain Natri. Peptideon 08-02 Natriuretic peptide B (Bld) [Mass/Vol] 152 pg/mL Normal <300 [facility] Comment on above: Result Comment: Pro- BNP results cannot be compared to BNP results. Performed By: #### D CITLALY, LIP, CMPX, TROPI, BNP, CDP, PT #### [facility] [address] [place] [address] Data Warehouse Manager: Sami Dominguez MD Natriuretic peptide B (Bld) [Mass/Vol] Pro-BNP Reference Range: Normal [facility] Comment on above: Result Comment: Rule Out: <300 Parra Zone: Age <50 300-450 Age 50-75 300-900 Age >75 300-1800 Usually represents mild to moderate HF but other cardiopulmonary causes cannot be ruled out. Rule In: Age <50 >450 Age 50-75 >900 Age >75 >1800 Performed By: #### D CITLALY, LIP, CMPX, TROPI, BNP, CDP, PT #### [facility] [address] [place] [address] Data Warehouse Manager: Sami Dominguez MD Brain Natriuretic Peptideon 08-02-2019 Natriuretic peptide B (Bld) [Mass/Vol] 152 pg/mL <300 [place] Comment on above: Pro-BNP results eric ot be compared to BNP results. Natriuretic peptide B (Bld) [Mass/Vol] Pro-BNP Reference Range: [place] Comment on above: Rule Out: <300 Parra Zone: Age <50 300-450 Age 50-75 300-900 Age >75 300-1800 Usually represents mild to moderate HF but other cardiopulmonary causes cannot be ruled out. Rule In: Age <50 >450 Age 50-75 >900 Age >75 >1800 CBC Auto Differentialon - Basophils (Bld) [#/Vol] 0.00 10*3/uL [place] Basophils/100 WBC (Bld) 0 % 0 - 2 % [place] Differential Type NOT REPORTED [place] Eosinophils (Bld) [#/Vol] 0.08 10*3/uL [place] Eosinophils/100 WBC (Bld) 1 % 1 - 4 % [place] Erythrocyte distribution width (RBC) [Ratio] 13.2 % 11.8 - 14.4 % [place] Hematocrit (Bld) [Volume fraction] 33.7 % Low 36.3 - 47.1 % [place] Hemoglobin (Bld) [Mass/Vol] 10.7 g/dL Low 11.9 - 15.1 g/dL [place] Immature granulocytes (Bld) [#/Vol] 0 % 0 [place] Immature granulocytes (Bld) [#/Vol] 0.00 10*3/uL [place] Interpretation and review of laboratory results Abnormal [place] Lymphocytes (Bld) [#/Vol] 0.90 10*3/uL Low [place] Lymphocytes/100 WBC (Bld) 12 % Low 24 - 43 % [place] MCH (RBC) [Entitic mass] 30.2 pg 25.2 - 33.5 pg [place] MCHC (RBC) [Mass/Vol] 31.8 g/dL 28.4 - 34.8 g/dL [place] MCV (RBC) [Entitic vol] 95.2 fL 82.6 - 102.9 fL [place] Monocytes (Bld) [#/Vol] 0.00 10*3/uL Low [place] [employer] Monocytes/100 WBC (Bld) 0 % Low 3 - 12 % [place] Morphology Gevoany (Bld) [Interp] Normal [place] Platelet mean volume (Bld) [Entitic vol] 8.6 fL 8.1 - 13.5 fL [place] Platelets (Bld) [#/Vol] NOT REPORTED [place] Platelets (Bld) [#/Vol] 335 10*3/uL [place] RBC (Bld) [#/Vol] 3.54 10*6/uL Low 3.95 - 5.1 1 m/uL [place] RBC morphology finding Nom (Bld) NOT REPORTED [place] Segmented neutrophils/100 WBC (Bld) 87 % High 36 - 65 % [place] Segs Absolute 6.52 [place] WBC (Bld) [#/Vol] 7.5 10*3/uL [place] WBC (Bld) [#/Vol] 0.0 10*3/uL 0.0 per 10 0 WBC [place] WBC Morphology NOT REPORTED [place] CBC with Diffon 08-02-2019 Abs. Basophil 0.00 k/uL Normal 0.0-0.2 [facility] Comment on above: Performed By: #### D CITLALY, LIP, CMPX, TROPI, BNP, CDP, PT #### [address] [place] [id number] Data Warehouse Manager: Sami Dominguez MD Abs.Imm.Granulocyte 0.00 k/uL Normal 0.00-0.30 [facility] Comment on above: Performed By: #### D CITLALY, LIP, CMPX, TROPI, BNP, CDP, PT #### [address] [place] [id number] Data Warehouse Manager: Sami Dominguez MD Abs.Neutrophil (Seg) 6.52 k/uL Normal 1.50-8.10 [facility] Comment on above: Performed By: #### D CITLALY, LIP, CMPX, TROPI, BNP, CDP, PT #### [address] [place] [id number] Data Warehouse Manager: Sami Dominguez MD Basophils/100 WBC (Bld) 0 % Normal 0-2 M [facility] Comment on above: Performed By: #### D CITLALY, LIP, CMPX, TROPI, BNP, CDP, PT #### [address] [place] [id number] Data Warehouse Manager: Sami Dominguez MD Eosinophils (Bld) [#/Vol] 0.08 10*3/uL Normal 0.00-0.44 [facility] Comment on above: Performed By: #### D CITLALY, LIP, CMPX, TROPI, BNP, CDP, PT #### [facility] [address] [place], [place] [address] Data Warehouse Manager: Sami Dominguez MD Eosinophils/100 WBC (Bld) 1 % Normal 1-4 [facility] Comment on above: Performed By: #### D CITLALY, LIP, CMPX, TROPI, BNP, CDP, PT #### [facility] [address] [place], [place] [address] Data Warehouse Manager: Sami Dominguez MD Immature granulocytes (Bld) [#/Vol] 0 % Normal 0 [facility] Comment on above: Performed By: #### D CITLALY, LIP, CMPX, TROPI, BNP, CDP, PT #### [facility] [address] [place], [place] [address] Data Warehouse Manager: Sami Dominguez MD Lymphocytes (Bld) [#/Vol] 0.90 10*3/uL Low 1.10-3.70 [facility] Comment on above: Performed By: #### D CITLALY, LIP, CMPX, TROPI, BNP, CDP, PT #### [facility] [address] [place], [place] [address] Data Warehouse Manager: Sami Dominguez MD Lymphocytes/100 WBC (Bld) 12 % Low 24-43 [facility] Comment on above: Performed By: #### D CITLALY, LIP, CMPX, TROPI, BNP, CDP, PT #### [facility] [address] [place], [facility] Data Warehouse Manager: Sami Dominguez MD Monocytes (Bld) [#/Vol] 0.00 10*3/uL Low 0.10-1.20 [facility] Comment on above: Performed By: #### D CITLALY, LIP, CMPX, TROPI, BNP, CDP, PT #### [facility] [address] [place], [facility]83 Data Warehouse Manager: Sami Dominguez MD Monocytes/100 WBC (Bld) 0 % Low 3-12 M [facility] Comment on above: Performed By: #### D CITLALY, LIP, CMPX, TROPI, BNP, CDP, PT #### [facility] [address] [place], [facility] Data Warehouse Manager: Sami Dominguez MD Morphology Geovany (Bld) [Interp] Normal Normal [facility] Comment on above: Performed By: #### D CITLALY, LIP, CMPX, TROPI, BNP, CDP, PT #### [address] [place], [facility] Data Warehouse Manager: Sami Dominguez MD Neutrophil (Seg) 87 % High 36-65 [facility] Comment on above: Performed By: #### D CITLALY, LIP, CMPX, TROPI, BNP, CDP, PT #### [address] [place], [facility] Data Warehouse Manager: Sami Dominguez MD Erythrocyte distribution width (RBC) [Ratio] 13.2 % Normal 11.8-14.4 [facility] Comment on above: Performed By: #### D CITLALY, LIP, CMPX, TROPI, BNP, CDP, PT #### [facility] [address] [place], [facility]83 Data Warehouse Manager: Sami Dominguez MD Hematocrit (Bld) [Volume fraction] 33.7 % Low 36.3-47.1 [facility] Comment on above: Performed By: #### D CITLALY, LIP, CMPX, TROPI, BNP, CDP, PT #### [facility] [address] [place], [facility]83 Data Warehouse Manager: Sami Dominguez MD Hemoglobin (Bld) [Mass/Vol] 10.7 g/dL Low 11.9-15.1 [facility] Comment on above: Performed By: #### D CITLALY, LIP, CMPX, TROPI, BNP, CDP, PT #### [facility] [address] [place] [address] Data Warehouse Manager: Sami Dominguez MD MCH (RBC) [Entitic mass] 30.2 pg Normal 25.2-33.5 [facility] Comment on above: Performed By: #### D CITLALY, LIP, CMPX, TROPI, BNP, CDP, PT #### [facility] [address] [place], [facility]83 Data Warehouse Manager: Sami Dominguez MD MCHC (RBC) [Mass/Vol] 31.8 g/dL Normal 28.4-34.8 [facility] Comment on above: Performed By: #### D CITLALY, LIP, CMPX, TROPI, BNP, CDP, PT #### [address] [place], [facility]83 Data Warehouse Manager: Sami Dominguez MD MCV (RBC) [Entitic vol] 95.2 fL Normal 82.6-102.9 [facility] Comment on above: Performed By: #### D CITLALY, LIP, CMPX, TROPI, BNP, CDP, PT #### [address] [place], [facility]83 Data Warehouse Manager: Sami Dominguez MD NRBC Automated 0.0 per 100 WBC Normal 0.0 [facility] Comment on above: Performed By: #### D CITLALY, LIP, CMPX, TROPI, BNP, CDP, PT #### [address] [place] [address] Data Warehouse Manager: Sami Dominguez MD Platelet mean volume (Bld) [Entitic vol] 8.6 fL Normal 8.1-13.5 [facility] Comment on above: Performed By: #### D CITLALY, LIP, CMPX, TROPI, BNP, CDP, PT #### [facility] [address] [place], [place] [address] Data Warehouse Manager: Sami Dominguez MD Platelets (Bld) [#/Vol] 335 10*3/uL Normal 138-453 [facility] Comment on above: Performed By: #### D CITLALY, LIP, CMPX, TROPI, BNP, CDP, PT #### [facility] [address] [place], [facility]83 Data Warehouse Manager: Sami Dominguez MD RBC (Bld) [#/Vol] 3.54 10*6/uL Low 3.95-5.11 [facility] Comment on above: Performed By: #### D CITLALY, LIP, CMPX, TROPI, BNP, CDP, PT #### [facility] [address] [place], [place] [address] Data Warehouse Manager: Sami Dominguez MD WBC (Bld) [#/Vol] 7.5 10*3/uL Normal 3.5-11.3 [facility] Comment on above: Performed By: #### D CITLALY, LIP, CMPX, TROPI, BNP, CDP, PT #### [facility] [address] [place], [id number] Data Warehouse Manager: Sami Dominguez MD Auto Diff Performed NOT REPORTED Normal [facility] Comment on above: Performed By: #### D CITLALY, LIP, CMPX, TROPI, BNP, CDP, PT #### [facility] [address] [place], [facility]83 Data Warehouse Manager: Sami Dominguez MD Platelets (Bld) [#/Vol] NOT REPORTED Normal [facility] Comment on above: Performed By: #### D CITLALY, LIP, CMPX, TROPI, BNP, CDP, PT #### [facility] [address] [place], [id number] Data Warehouse Manager: Sami Dominguez MD RBC morphology finding Nom (Bld) NOT REPORTED Normal [facility] Comment on above: Performed By: #### D CITLALY, LIP, CMPX, TROPI, BNP, CDP, PT #### [facility] [address] [place], [place] [id number] Data Warehouse Manager: Sami Dominguez MD WBC Morphology NOT REPORTED Normal [facility] Comment on above: Performed By: #### D CITLALY, LIP, CMPX, TROPI, BNP, CDP, PT #### [facility] [address] [place] [address] Data Warehouse Manager: Sami Dominguez MD CTA CHEST ABDOMEN [...] Yunier Yang MD 08/02/19 Final result Normal [facility] Moshe, pn Incoming Radiant Results From [employer]/PT PAL - 08/02/2019 1:21 PM EDT EXAMINATION: CTA [...] recommended. Reference: J Am Danika Radiol 2013;10:675-681 [place], [place] EXAMINATION: CTA OF THE CHEST, ABDOMEN [...] and caliber without aneurysmal dilatation or dissection. [place], [place] No evidence for aneurysmal dilatation or dissection of the aorta or its branches. Findings most compatible with polycystic kidney disease. Subtle inflammation adjacent to the descending colon is suggestive of subtle colitis. No perforation or abscess formation. No free intraperitoneal air or fluid. 4.1 cm benign appearing ovarian cyst No follow-up imaging is recommended. Reference: J Am Danika Radiol 2013;10:675-681 [place], [place] Comp Metabolic Pr/rfx MGon 1 (cont.) Normal [facility] Comment on above: Result Comment: Aver age GFR for 40-49 years old: 99 mL/min/1.73sq m Chronic Kidney Disease: <60 mL/min/1.73sq m Kidney failure: <15 mL/min/1.73sq m eGFR calculated using average adult body mass. Additional eGFR calculator available at: http://www.[employer]/multiple_crcl_2012.htm Performed By: #### D CITLALY, LIP, CMPX, TROPI, BNP, CDP, PT #### [facility] [address] [place] [address] [place] [address] Data Warehouse Manager: Sami Dominguez MD Albumin [Mass/Vol] 4.4 g/dL Normal 3.5-5.2 [facility] Comment on above: Performed By: #### D CITLALY, LIP, CMPX, TROPI, BNP, CDP, PT #### [facility] [address] [place] [address] Data Warehouse Manager: Sami Dominguez MD Albumin/Globulin [Mass ratio] 1.0 {ratio} Normal 1.0-2.5 [facility] Comment on above: Performed By: #### D CITLALY, LIP, CMPX, TROPI, BNP, CDP, PT #### [facility] [address] [place] [address] Data Warehouse Manager: Sami Dominguez MD Alkaline Phos 98 U/L Normal 35-104 [facility] Comment on above: Performed By: #### D CITLALY, LIP, CMPX, TROPI, BNP, CDP, PT #### [facility] [address] [place], [place] [id number] Data Warehouse Manager: Sami Dominguez MD ALT [Catalytic activity/Vol] 16 U/L Normal 5-33 [facility] Comment on above: Performed By: #### D CITLALY, LIP, CMPX, TROPI, BNP, CDP, PT #### [facility] [address] [place], [place] [id number] Data Warehouse Manager: Sami Dominguez MD Anion gap [Moles/Vol] 18 mmol/L High 9-17 [facility] Comment on above: Performed By: #### D CITLALY, LIP, CMPX, TROPI, BNP, CDP, PT #### [facility] [address] [place], [place] [address] Data Warehouse Manager: Sami Dominguez MD AST [Catalytic activity/Vol] 18 U/L Normal <32 [facility] Comment on above: Performed By: #### D CITLALY, LIP, CMPX, TROPI, BNP, CDP, PT #### [facility] [address] [place], [place] [id number] Data Warehouse Manager: Sami Dominguez MD Bilirubin Ql (U) 0.31 mg/dL Normal 0.3-1.2 [facility] Comment on above: Performed By: #### D CITLALY, LIP, CMPX, TROPI, BNP, CDP, PT #### [facility] [address] [place], [place] [address] Data Warehouse Manager: Sami Dominguez MD BUN/CRE Ratio 13 Normal 9-20 [facility] Comment on above: Performed By: #### D CITLALY, LIP, CMPX, TROPI, BNP, CDP, PT #### [facility] [address] [place], [place] [address] Data Warehouse Manager: Sami Dominguez MD Calcium [Mass/Vol] 9.7 mg/dL Normal 8.6-10.4 [facility] Comment on above: Performed By: #### D CITLALY, LIP, CMPX, TROPI, BNP, CDP, PT #### [facility] [address] [place] [address] Data Warehouse Manager: Sami Dominguez MD Chloride [Moles/Vol] 95 mmol/L Low 98-107 [facility] Comment on above: Performed By: #### D CITLALY, LIP, CMPX, TROPI, BNP, CDP, PT #### [facility] [address] [place] [address] Data Warehouse Manager: Sami Dominguez MD CO2 [Moles/Vol] 18 mmol/L Low 20-31 [facility] Comment on above: Performed By: #### D CITLALY, LIP, CMPX, TROPI, BNP, CDP, PT #### [facility] [address] [place] [address] Data Warehouse Manager: Sami Dominguez MD Creatinine [Mass/Vol] 3.07 mg/dL High 0.50-0.90 [facility] Comment on above: Performed By: #### D CITLALY, LIP, CMPX, TROPI, BNP, CDP, PT #### [facility] [address] [place], [place] [id number] Data Warehouse Manager: Sami Dominguez MD GFR, Amer 20 mL/min Low >60 [facility] Comment on above: Performed By: #### D CITLALY, LIP, CMPX, TROPI, BNP, CDP, PT #### [facility] [address] [place] [address] Data Warehouse Manager: Sami Dominguez MD GFR,non Amer 17 mL/min Low >60 [facility] Comment on above: Performed By: #### D CITLALY, LIP, CMPX, TROPI, BNP, CDP, PT #### [facility] Lab [address] [place] [address] Data Warehouse Manager: Sami Dominguez MD Glucose [Mass/Vol] 89 mg/dL Normal 70-99 [facility] Comment on above: Performed By: #### D CITLALY, LIP, CMPX, TROPI, BNP, CDP, PT #### [facility] [address] [place] [address] Data Warehouse Manager: Sami Dominguez MD Potassium [Moles/Vol] 3.9 mmol/L Normal 3.7-5.3 [facility] Comment on above: Performed By: #### D CITLALY, LIP, CMPX, TROPI, BNP, CDP, PT #### [facility] [address] [place], [place] [id number] Data Warehouse Manager: Sami Dominguez MD Protein [Mass/Vol] 8.8 g/dL High 6.4-8.3 [facility] Comment on above: Performed By: #### D CITLALY, LIP, CMPX, TROPI, BNP, CDP, PT #### [facility] [address] [place] [address] Data Warehouse Manager: Sami Dominguez MD Sodium [Moles/Vol] 131 mmol/L Low 135-144 [facility] Comment on above: Performed By: #### D CITLALY, LIP, CMPX, TROPI, BNP, CDP, PT #### [facility] [address] [place], [place] [id number] Data Warehouse Manager: Sami Dominguez MD Staging: Normal [facility] Comment on [...] CMPX, TROPI, BNP, CDP, PT #### [facility] [address] [place] [address] Data Warehouse Manager: Sami Dominguez MD Urea nitrogen [Mass/Vol] 39 mg/dL High 6-20 [facility] Comment on above: Performed By: #### D CITLALY, LIP, CMPX, TROPI, BNP, CDP, PT #### [facility] [address] [place] [address] Data Warehouse Manager: Sami Dominguez MD Comprehensive Metabolic Pane l w/ Reflex to MGon 08-02-2019 Albumin [Mass/Vol] 4.4 g/dL 3.5 - 5.2 g/dL [place] Albumin/Globulin [Mass ratio] 1.0 {ratio} [place] ALP [Catalytic activity/Vol] 98 U/L 35 - 104 U/L [place] ALT [Catalytic activity/Vol] 16 U/L 5 - 33 U/L [place] Anion gap [Moles/Vol] 18 mmol/L High 9 - 17 mmol/L [place] AST [Catalytic activity/Vol] 18 U/L <32 [place] Bilirubin Ql (U) 0.31 mg/dL 0.3 - 1.2 mg/dL [place] Bun/Cre Ratio 13 [place] Calcium [Mass/Vol] 9.7 mg/dL 8.6 - 10. 4 mg/dL [place] Chloride [Moles/Vol] 95 mmol/L Low 98 - 10 7 mmol/L [place] CO2 [Moles/Vol] 18 mmol/L Low 20 - 31 mmol/L [place] Creatinine [Mass/Vol] 3.07 mg/dL High 0.5 - 0.9 mg/dL [place] GFR 20 mL/min Low >60 [place] GFR Non- 17 mL/min Low >60 [place] Glucose [Mass/Vol] 89 mg/dL 70 - 99 mg/dL [place] Interpretation and review of laboratory results Abnormal [place] Potassium [Moles/Vol] 3.9 mmol/L 3.7 - 5.3 mmol/L [place] Protein [Mass/Vol] 8.8 g/dL High 6.4 - 8.3 g/dL [place] Sodium [Moles/Vol] 131 mmol/L Low 135 - 144 mmol/L [place] Urea nitrogen [Mass/Vol] 39 mg/dL High 6 - 20 mg/dL [place] D-Dimer Teston 08-02-2019 D-Dimer Test 1.15 mg/L FEU High 0.19-0.50 [facility] Comment on [...] CMPX, TROPI, BNP, CDP, PT #### [facility] [address] [place] [address] Data Warehouse Manager: Sami Dominguez MD D-Dimer, Quantitativeon 07-07 D-Dimer, Quant 1.15 High [place] Comment on above: Elevated levels of [...] Interpretation and review of laboratory results Abnormal [place] Lactate, Sepsison 08-02-2019 Lactic Acid, Sepsis 3.6 mmol/L High 0.5-1.9 [facility] Comment on above: Performed By: #### L ACDS #### [facility] [address] [place] [address] Data Warehouse Manager: Sami Dominguez MD Lactic Acid,Sep Wbld NOT REPORTED Normal 0.5-1.9 [facility] Comment on above: Performed By: #### L ACDS #### [facility] [address] [place] [address] Data Warehouse Manager: Sami Dominguez MD Interpretation and review of laboratory results Abnormal [place] Lactic Acid, Sepsis 3.6 mmol/L High 0.5 - 1. 9 mmol/L [place] Lactic Acid, Sepsis, Whole Blood NOT REPORTED 0.5 - 1.9 mmol/L [place] Lactic Acidon 08-02-2019 Lactate [Moles/Vol] 1.0 mmol/L Normal 0.5-2.2 [facility] Comment on above: Performed By: #### D CITLALY, LIP, CMPX, TROPI, BNP, CDP, PT #### [facility] [address] [place] [address] Data Warehouse Manager: Sami Dominguez MD Lactate [Moles/Vol] NOT REPORTED Normal 0.7-2.1 [facility] Comment on above: Performed By: #### D CITLALY, LIP, CMPX, TROPI, BNP, CDP, PT #### [facility] [address] [place] [address] Data Warehouse Manager: Sami Dominguez MD Lactic Acid, Plasmaon 2018 Lactate [Moles/Vol] 1 mmol/L 0.5 - 2. 2 mmol/L [place] Lactic Acid, Whole Blood NOT REPORTED 0.7 - 2.1 mmol/L [place] Lipaseon 08-02-2019 Lipase [Catalytic activity/Vol] 38 U/L Normal 13-60 [facility] Comment on above: Performed By: #### D CITLALY, LIP, CMPX, TROPI, BNP, CDP, PT #### [facility] [address] [place] [address] Data Warehouse Manager: Sami Dominguez MD Lipase [Catalytic activity/Vol] 38 U/L 13 - 60 U/L [place] Metabolic Panelon 08-02-2019 GFR/1.73 sq M predicted among non-blacks MDRD (S/P/Bld) [Vol rate/Area] [place] Comment on above: Stage 1: Some [...] body mass. Additional eGFR calculator available at: http://www.Freever/multiple_crcl_2012.htm Microscopic Urinalysison Amorphous, UA NOT REPORTED None [place] Bacteria, UA 1+ Abnormal None [place] Casts UA NOT REPORTED /LPF [place] Crystals UA NOT REPORTED None /HPF [place] Epithelial Cells UA 2 TO 5 [place] Interpretation and review of laboratory results Abnormal [place] Mucus, UA NOT REPORTED None [place] Other Observations UA NOT REPORTED NOT REQ. [place] RBC (U) [#/Vol] None [place] Renal Epithelial, Urine NOT REPORTED 0 /HPF [place] Trichomonas, UA NOT REPORTED None [place] WBC, UA 50 TO 100 [place] Yeast, UA NOT REPORTED None [place] - [place] PTon 08-02-2019 INR Coag (PPP) [Relative time] 1.0 {INR} Normal 0.9-1.2 [facility] Comment on above: Performed By: #### D CITLALY, LIP, CMPX, TROPI, BNP, CDP, PT #### [facility] [address] [place] [address] Data Warehouse Manager: Sami Dominguez MD PT Coag (PPP) [Time] 10.0 s Normal 9.7-12.2 [facility] Comment on above: Performed By: #### D CITLALY, LIP, CMPX, TROPI, BNP, CDP, PT #### [facility] [address] [place], [place] [id number] Data Warehouse Manager: Sami Dominguez MD Protime-INRon 08-02-2019 INR Coag (PPP) [Relative time] 1.0 {INR} [place] PT Coag (PPP) [Time] 10 s [place] Troponinon 08-02-2019 Troponin I.cardiac [Mass/Vol] ng/mL Normal <0.03 [facility] Comment on above: Result Comment: Trop onin T results cannot be compared to Troponin-I results. Performed By: #### D CITLALY, LIP, CMPX, TROPI, BNP, CDP, PT #### [facility] [address] [place] [address] Data Warehouse Manager: Sami Dominguez MD Troponin I.cardiac [Mass/Vol] Normal [facility] Comment on [...] CMPX, TROPI, BNP, CDP, PT #### [facility] [address] [place] [address] Data Warehouse Manager: Sami Dominguez MD Troponin I.cardiac [Mass/Vol] NOT REPORTED Normal 0-14 [facility] Comment on above: Performed By: #### D CITLALY, LIP, CMPX, TROPI, BNP, CDP, PT #### [facility] [place] [address] Data Warehouse Manager: Sami Dominguez MD Troponin I.cardiac [Mass/Vol] [place] Comment on above: Reference Range: <0.03 [...] diagnosis. Troponin T.cardiac [Mass/Vol] ug/L <0.03 ng/mL [place] Comment on above: Troponin T results c annot be compared to Troponin-I results. Troponin, High Sensitivity NOT REPORTED 0 - 14 ng/L [place] Troponin I.cardiac [Mass/Vol] ng/mL Normal <0.03 [facility] Comment on above: Result Comment: Trop onin T results cannot be compared to Troponin-I results. Performed By: #### D CITLALY, LIP, CMPX, TROPI, BNP, CDP, PT #### [address] [place] [address] Data Warehouse Manager: Sami Dominguez MD Troponin I.cardiac [Mass/Vol] Normal [facility] Comment on [...] LIP, CMPX, TROPI, BNP, CDP, PT #### [address] [place] [address] Data Warehouse Manager: Sami Dominguez MD Troponin I.cardiac [Mass/Vol] NOT REPORTED Normal 0-14 [facility] Comment on above: Performed By: #### D CITLALY, LIP, CMPX, TROPI, BNP, CDP, PT #### [facility] [address] [place] [address] Data Warehouse Manager: Sami Dominguez MD Troponin I.cardiac [Mass/Vol] [place] Comment on above: Reference Range: <0.03 [...] diagnosis. Troponin T.cardiac [Mass/Vol] ug/L <0.03 ng/mL [place] Comment on above: Troponin T results c annot be compared to Troponin-I results. Troponin, High Sensitivity NOT REPORTED 0 - 14 ng/L [place] UA w/Reflex Cultureon 2018 Acetoacetic Acid,Ur Negative Normal [facility] Comment on above: Performed By: #### D CITLALY, LIP, CMPX, TROPI, BNP, CDP, PT #### [facility] [address] [place] [address] Data Warehouse Manager: Sami Dominguez MD Bilirubin, SemiQt,Ur Negative [facility] Comment on above: Performed By: #### D CITLALY, LIP, CMPX, TROPI, BNP, CDP, PT #### [facility] [address] [place], [place] [id number] Data Warehouse Manager: Sami Dominguez MD Color (U) YELLOW Normal [facility] Comment on above: Performed By: #### D CITLALY, LIP, CMPX, TROPI, BNP, CDP, PT #### [facility] [address] [place] [address] Data Warehouse Manager: Sami Dominguez MD Glucose Ql (U) Negative Normal [facility] Comment on above: Performed By: #### D CITLALY, LIP, CMPX, TROPI, BNP, CDP, PT #### [facility] [address] [place] [address] Data Warehouse Manager: Sami Dominguez MD Hemoglobin, Ur 1+ Abnormal NEG [facility] Comment on above: Performed By: #### D CITLALY, LIP, CMPX, TROPI, BNP, CDP, PT #### [facility] [address] [place], [facility] Data Warehouse Manager: Sami Dominguez MD Leukocyte esterase Test strip Ql (U) MODERATE Abnormal NEG [facility] Comment on above: Performed By: #### D CITLALY, LIP, CMPX, TROPI, BNP, CDP, PT #### [address] [place] [address] Data Warehouse Manager: Sami Dominguez MD Nitrite,Ur Negative Normal NEG [facility] Comment on above: Performed By: #### D CITLALY, LIP, CMPX, TROPI, BNP, CDP, PT #### [address] [place] [address] Data Warehouse Manager: Sami Dominguez MD pH (U) 6.0 [pH] Normal 5.0-9.0 [facility] Comment on above: Performed By: #### D CITLALY, LIP, CMPX, TROPI, BNP, CDP, PT #### [address] [place], [facility] Data Warehouse Manager: Sami Dominguez MD Protein Ql (U) TRACE Abnormal NEG [facility] Comment on above: Performed By: #### D CITLALY, LIP, CMPX, TROPI, BNP, CDP, PT #### [facility] [address] [place] [address] Data Warehouse Manager: Sami Dominguez MD Specific gravity (U) [Rel density] 1.010 Normal 1.010-1.020 [facility] Comment on above: Performed By: #### D CITLALY, LIP, CMPX, TROPI, BNP, CDP, PT #### [facility] [address] [place] [address] Data Warehouse Manager: Sami Dominguez MD Turbidity CLEAR Normal CLEAR [facility] Comment on above: Performed By: #### D CITLALY, LIP, CMPX, TROPI, BNP, CDP, PT #### [facility] [address] [place] [address] Data Warehouse Manager: Sami Dominguez MD Urobilinogen,Ur Normal Normal NORM [facility] Comment on above: Performed By: #### D CITLALY, LIP, CMPX, TROPI, BNP, CDP, PT #### [facility] [address] [place] [address] Data Warehouse Manager: Sami Dominguez MD Comment NOT REPORTED Normal [facility] Comment on above: Performed By: #### D CITLALY, LIP, CMPX, TROPI, BNP, CDP, PT #### [facility] [address] [place] [address] [place] [address] Data Warehouse Manager: Sami Dominguez MD Urinalysis Reflex to Culture on 08-02-2019 Bilirubin Urine Negative NEGATIVE [facility], [place] Color, UA YELLOW YELLOW [place] [employer], [place] Glucose, Ur Negative NEGATIVE [place] Interpretation and review of laboratory results Abnormal [place] Ketones Ql (U) Negative NEGATIVE [place] Leukocyte esterase Test strip Ql (U) MODERATE Abnormal NEGATIVE [facility], [place] Nitrite, Urine Negative NEGATIVE [place] pH, UA 6.0 [place] Protein (U) [Mass/Vol] TRACE Abnormal NEGATIVE [facility], [place] Specific [place], UA 1.010 [facility], [place] Turbidity UA CLEAR CLEAR [place] Urinalysis Comments NOT REPORTED [facility], [place] Urine Hgb 1+ Abnormal NEGATIVE [facility] Urobilinogen, Urine Normal Normal [place] Urinalysis,Microon 9 ----- Normal [facility] Comment on above: Performed By: #### D CITLALY, LIP, CMPX, TROPI, BNP, CDP, PT #### [facility] [address] [place] [address] Data Warehouse Manager: Sami Dominguez MD Bacteria LM.HPF (Urine sed) [#/Area] 1+ Abnormal NONE [facility] Comment on above: Performed By: #### D CITLALY, LIP, CMPX, TROPI, BNP, CDP, PT #### [facility] [address] [place], [place] [id number] Data Warehouse Manager: Sami Dominguez MD Epithelial cells LM.HPF (Urine sed) [#/Area] 2 TO 5 Normal 0-25 [facility] Comment on above: Performed By: #### D CITLALY, LIP, CMPX, TROPI, BNP, CDP, PT #### [facility] [address] [place], [place] [address] Data Warehouse Manager: Sami Dominguez MD RBC (U) [#/Vol] None Normal 0-2 [facility] Comment on above: Performed By: #### D CITLALY, LIP, CMPX, TROPI, BNP, CDP, PT #### [facility] [address] [place], [place] [id number] Data Warehouse Manager: Sami Dominguez MD WBC (U) [#/Vol] 50 TO 100 Normal 0-5 [facility] Comment on above: Performed By: #### D CITLALY, LIP, CMPX, TROPI, BNP, CDP, PT #### [facility] [address] [place], [place] [id number] Data Warehouse Manager: Sami Dominguez MD Amorphous sediment LM Ql (Urine sed) NOT REPORTED Normal [facility] Comment on above: Performed By: #### D CITLALY, LIP, CMPX, TROPI, BNP, CDP, PT #### [facility] [address] [place], [place] [id number] Data Warehouse Manager: Sami Dominguez MD Casts LM.LPF (Urine sed) [#/Area] NOT REPORTED Normal [facility] Comment on above: Performed By: #### D CITLALY, LIP, CMPX, TROPI, BNP, CDP, PT #### [facility] [address] [place] [address] Data Warehouse Manager: Sami Dominguez MD Crystals LM Nom (Urine sed) NOT REPORTED Normal [facility] Comment on above: Performed By: #### D CITLALY, LIP, CMPX, TROPI, BNP, CDP, PT #### [facility] [address] [place] [address] Data Warehouse Manager: Sami Dominguez MD Epithelial, Renal NOT REPORTED Normal [address] [place] [address] Comment on above: Performed By: #### D CITLALY, LIP, CMPX, TROPI, BNP, CDP, PT #### [facility] [address] [place] [address] [place] [address] Data Warehouse Manager: Sami Dominguez MD Mucus Strands NOT REPORTED Normal [facility] Comment on above: Performed By: #### D CITLALY, LIP, CMPX, TROPI, BNP, CDP, PT #### [address] [place] [address] Data Warehouse Manager: Sami Dominguez MD Other Observations NOT REPORTED Normal NREQ [facility] Comment on above: Performed By: #### D CITLALY, LIP, CMPX, TROPI, BNP, CDP, PT #### [facility] [address] [place] [address] Data Warehouse Manager: Sami Dominguez MD Trichomonas NOT REPORTED Normal [facility] Comment on above: Performed By: #### D CITLALY, LIP, CMPX, TROPI, BNP, CDP, PT #### [facility] [address] [place] [address] Data Warehouse Manager: Sami Dominguez MD Yeast LM Ql (Urine sed) NOT REPORTED Normal [facility] Comment on above: Performed By: #### D CITLALY, LIP, CMPX, TROPI, BNP, CDP, PT #### [facility] [address] [place] [address] Data Warehouse Manager: Sami Dominguez MD XR CHEST PORTABLEon [...] No acute cardiopulmonary process. Interpreted by: Cullen gNo MD Signed by: Cullen Ngo MD 08/02/19 Final result Normal [facility] EXAMINATION: ONE XRA Y VIEW OF THE CHEST 08/02/2019 12:59 pm COMPARISON: None. HISTORY: ORDERING SYSTEM PROVIDED HISTORY: CP TECHNOLOGIST PROVIDED HISTORY: CP FINDINGS: Heart size and pulmonary vessels are within normal limits. Lungs are clear. No focal infiltrates or significant pleural effusions are seen. There is no acute osseous abnormality. Monitor leads overlie the chest. [place], [place] No acute cardiopulmo nary process. [place], [place] Mos[facility], [facility] Incoming Radiant Results From [employer] - 08/02/2019 1:10 PM EDT EXAMINATION: ONE [...] the chest. IMPRESSION: No acute cardiopulmonary process. [place], [place] Vital Signs Date Time Vital Sign Value Performing Clinician Facility 10-01-2024 08:19-0500 Body height 154.9 cm Ming Espinoza DO Work Phone: [facility] 10-01-2024 08:19-0500 Body mass index (BMI) [Ratio] 34.2 kg/m2 Ming Espinoza DO Work Phone: [facility] 10-01-2024 08:19-0500 Body weight 82.1 kg Ming Espinoza DO Work Phone: [facility] 10-01-2024 08:19-0500 Diastolic blood pressure 60 mm[Hg] Ming Espinoza DO Work Phone: [facility] 10-01-2024 08:19-0500 Heart rate 88 /min Ming Espinoza DO Work Phone: [facility] 10-01-2024 08:19-0500 SaO2% (BldA) [Mass fraction] 98 % Ming Espinoza DO Work Phone: [facility] 10-01-2024 08:19-0500 Systolic blood pressure 124 mm[Hg] Ming Espinoza DO Work Phone: [facility] 07-27-2024 08:34-0400 Body temperature 97.81 [degF] Lucero Didion NURSERYMAN ASSISTANT Work Phone: [facility] 07-27-2024 08:34-0400 Diastolic blood pressure 74 mm[Hg] Lucero Didion NURSERYMAN ASSISTANT Work Phone: [facility] 07-27-2024 08:34-0400 Heart rate 83 /min Lucero Didion NURSERYMAN ASSISTANT Work Phone: [facility] 07-27-2024 08:34-0400 SaO2% (BldA) [Mass fraction] 98 % Lucero Didion NURSERYMAN ASSISTANT Work Phone: [facility] 07-27-2024 08:34-0400 Systolic blood pressure 118 mm[Hg] Lucero Didion NURSERYMAN ASSISTANT Work Phone: [facility] 03-15-2024 17:34-0400 Body height 157.48 cm [employer] Andreia Jerry Work Phone: [facility] 03-15-2024 17:34-0400 Body mass index (BMI) [Ratio] 31.8 kg/m2 [employer] Andreia Jerry Work Phone: [facility] 03-15-2024 17:34-0400 Body temperature 100.3 [degF] [employer] Andreia Jerry Work Phone: [facility] 03-15-2024 17:34-0400 Body weight 78.92 kg [employer] Andreia Jerry Work Phone: [facility] 03-15-2024 17:34-0400 Diastolic blood pressure 79 mm[Hg] [employer] Andreia Jerry Work Phone: [facility] 03-15-2024 17:34-0400 Heart rate 88 /min [employer] Andreia Jerry Work Phone: [facility] 03-15-2024 17:34-0400 Respiratory rate 18 /min [employer] Andreia Jerry Work Phone: [facility] 03-15-2024 17:34-0400 SaO2% (BldA) [Mass fraction] 96 % [employer] Andreia Jerry Work Phone: [facility] 03-15-2024 17:34-0400 Systolic blood pressure 121 mm[Hg] [employer] Andreia Jerry Work Phone: [facility] 07-30-2022 17:40-0400 Body height 157.48 cm Yaneth Toni Other [employer] Other 07-30-2022 17:40-0400 Body mass index (BMI) [Ratio] 36.69 kg/m2 Ayneth Toni Other [employer] Other 07-30-2022 17:40-0400 Body temperature 97.4 [degF] Yaneth Toni Other [employer] Other 07-30-2022 17:40-0400 Body weight 90.99 kg Yaneth Toni Other [employer] Other 07-30-2022 17:40-0400 Diastolic blood pressure 85 mm[Hg] Yaneth Toni Other [employer] Other 07-30-2022 17:40-0400 Respiratory rate 18 /min Yaneth Toni Other [employer] Other 07-30-2022 17:40-0400 SaO2% (BldA) [Mass fraction] 99 % Yaneth Toni Other [employer] Other 07-30-2022 17:40-0400 Systolic blood pressure 124 mm[Hg] Yaneth Toni Other [employer] Other 07-03-2022 09:45-0400 Body height 157.48 cm Estefania Camarillogary Other [employer] Other 07-03-2022 09:45-0400 Body mass index (BMI) [Ratio] 36.76 kg/m2 Estefania Camarillogary Other [employer] Other 07-03-2022 09:45-0400 Body temperature 97 [degF] Estefania Camarillogary Other [employer] Other 07-03-2022 09:45-0400 Body weight 91.17 kg Estefania Camarillogary Other [employer] Other 07-03-2022 09:45-0400 Diastolic blood pressure 60 mm[Hg] Estefania Tavo Other [employer] Other 07-03-2022 09:45-0400 SaO2% (BldA) [Mass fraction] 99 % Estefania Vo Other [facility] Other 07-03-2022 09:45-0400 Systolic blood pressure 110 mm[Hg] Estefania Vo Other [facility] Other 06-20-2022 16:10-0400 Diastolic blood pressure 68 mm[Hg] DO Ming Alexis Work Phone: [facility] 06-20-2022 16:10-0400 Heart rate 69 /min DO Ming Alexis Work Phone: [facility] 06-20-2022 16:10-0400 Respiratory rate 18 /min DO Ming Alexis Work Phone: [facility] 06-20-2022 16:10-0400 SaO2% (BldA) [Mass fraction] 100 % DO Ming Alexis Work Phone: [facility] 06-20-2022 16:10-0400 Systolic blood pressure 126 mm[Hg] DO Ming Alexis Work Phone: [facility] 06-20-2022 13:15-0400 Body height 157.48 cm DO Ming Alexis Work Phone: [facility] 06-20-2022 13:15-0400 Body temperature 98.6 [degF] DO Ming Alexis Work Phone: [facility] 06-20-2022 13:15-0400 Body weight 91.5 kg DO Ming Alexis Work Phone: [facility] 06-18-2022 10:45-0400 Diastolic blood pressure 79 mm[Hg] DO Ming Alexis Work Phone: [facility] 06-18-2022 10:45-0400 Heart rate 66 /min DO Ming Alexis Work Phone: [facility] 06-18-2022 10:45-0400 Respiratory rate 16 /min DO Ming Espinoza Work Phone: [facility] 06-18-2022 10:45-0400 SaO2% (BldA) [Mass fraction] 100 % DO Ming Espinoza Work Phone: [facility] 06-18-2022 10:45-0400 Systolic blood pressure 130 mm[Hg] DO Ming Espinoza Work Phone: [facility] 06-18-2022 08:08-0400 Body mass index (BMI) [Ratio] 37.8 kg/m2 DO Ming Espinoza Work Phone: [facility] 06-18-2022 07:41-0400 Body height 157.48 cm DO Ming Espinoza Work Phone: [facility] 06-18-2022 07:41-0400 Body weight 93.89 kg DO Ming Espinoza Work Phone: [facility] 06-18-2022 06:26-0400 Body temperature 98.5 [degF] DO Ming Espinoza Work Phone: [facility] 05-30-2022 11:00-0400 Body height 157.48 cm Jesus Parham Other [employer] Other 05-30-2022 11:00-0400 Body mass index (BMI) [Ratio] 36.76 kg/m2 Jesus Parham Other [employer] Other 05-30-2022 11:00-0400 Body temperature 97.6 [degF] Jesus Parham Other [employer] Other 05-30-2022 11:00-0400 Body weight 91.17 kg Jesus Parham Other [employer] Other 05-30-2022 11:00-0400 Diastolic blood pressure 76 mm[Hg] Jesus Parham Other [employer] Other 05-30-2022 11:00-0400 SaO2% (BldA) [Mass fraction] 98 % Jesus Parham Other [employer] Other 05-30-2022 11:00-0400 Systolic blood pressure 128 mm[Hg] Jesus Parham Other [employer] Other 05-02-2022 14:40-0400 Body height 157.48 cm Yaneth Toni Other [employer] Other 05-02-2022 14:40-0400 Body mass index (BMI) [Ratio] 36.76 kg/m2 Yaneth Toni Other [employer] Other 05-02-2022 14:40-0400 Body temperature 97.7 [degF] Yaneth Toni Other [employer] Other 05-02-2022 14:40-0400 Body weight 91.17 kg Yaneth Toni Other [employer] Other 05-02-2022 14:40-0400 Diastolic blood pressure 88 mm[Hg] Yaneth Toni Other [employer] Other 05-02-2022 14:40-0400 Respiratory rate 18 /min Yaneth Toni Other [employer] Other 05-02-2022 14:40-0400 SaO2% (BldA) [Mass fraction] 98 % Yaneth Toni Other [employer] Other 05-02-2022 14:40-0400 Systolic blood pressure 121 mm[Hg] Yaneth Toni Other [employer] Other 04-30-2022 10:10-0400 Body height 157.48 cm Dipika Stinson Other [employer] Other 04-30-2022 10:10-0400 Body mass index (BMI) [Ratio] 37.86 kg/m2 Dipika Juniorault Other [employer] Other 04-30-2022 10:10-0400 Body temperature 97.4 [degF] Dipika Juniorault Other [employer] Other 04-30-2022 10:10-0400 Body weight 93.9 kg Dipika Stinson Other [employer] Other 04-30-2022 10:10-0400 Diastolic blood pressure 80 mm[Hg] Dipika Juniorault Other [employer] Other 04-30-2022 10:10-0400 Respiratory rate 16 /min Dipika Shantell Other [employer] Other 04-30-2022 10:10-0400 SaO2% (BldA) [Mass fraction] 100 % Dipika Juniorault Other [employer] Other 04-30-2022 10:10-0400 Systolic blood pressure 117 mm[Hg] Dipika Juniorault Other [employer] Other 04-01-2022 09:13-0400 Diastolic blood pressure 62 mm[Hg] DO Ming Espinoza Work Phone: [facility] 04-01-2022 09:13-0400 Heart rate 83 /min DO Ming Espinoza Work Phone: [facility] 04-01-2022 09:13-0400 Respiratory rate 16 /min DO Ming Espinoza Work Phone: [facility] 04-01-2022 09:13-0400 SaO2% (BldA) [Mass fraction] 97 % DO Ming Espinoza Work Phone: [facility] 04-01-2022 09:13-0400 Systolic blood pressure 101 mm[Hg] DO Ming Espinoza Work Phone: [facility] 04-01-2022 07:23-0400 Body height 157.48 cm DO Ming Espinoza Work Phone: [facility] 04-01-2022 07:23-0400 Body mass index (BMI) [Ratio] 37.8 kg/m2 DO Ming Espinoza Work Phone: [facility] 04-01-2022 07:23-0400 Body temperature 97.8 [degF] DO Ming Espinoza Work Phone: [facility] 04-01-2022 07:23-0400 Body weight 93.89 kg DO Ming Espinoza Work Phone: [facility] 12-06-2021 16:20-0500 Body height 157.48 cm Yaneth Toni Other [employer] [facility] [employer] Other 12-06-2021 16:20-0500 Body mass index (BMI) [Ratio] 37.86 kg/m2 Yaneth Toni Other [employer] [facility] [employer] Other 12-06-2021 16:20-0500 Body weight 93.9 kg Yaneth Toni Other [employer] Other 12-06-2021 16:20-0500 Diastolic blood pressure 89 mm[Hg] Yaneth Toni Other [employer] Other 12-06-2021 16:20-0500 Respiratory rate 18 /min Yaneth Toni Other [employer] Other 12-06-2021 16:20-0500 SaO2% (BldA) [Mass fraction] 97 % Yaneth Toni Other [employer] Other 12-06-2021 16:20-0500 Systolic blood pressure 134 mm[Hg] Yaneth Toni Other [employer] Other 08-02-2019 16:35-0400 Body Temperature 99.3 [degF] [place], [place] 08-02-2019 16:27-0400 Pulse (Heart Rate) 110 /min [place], [place] 08-02-2019 16:27-0400 Pulse Oximetry 98 % [place], [place] 08-02-2019 16:27-0400 Respiratory Rate 14 /min [place] 08-02-2019 16:16-0400 BP Diastolic 56 mm[Hg] [place], [place] 08-02-2019 16:16-0400 BP Systolic 97 mm[Hg] [place] 08-02-2019 14:59-0400 BMI (Body Mass Index) 37.79 kg/m2 [place] 08-02-2019 14:59-0400 Body weight 90.72 kg [place] 08-02-2019 14:59-0400 Height 154.9 cm Vidal Kaitlin [facility] [place] [facility] [place] Encounters Encounter Date Encounter Type Care Provider Facility Start: 12-03-2024 End: 12-03-2024 Clinisync Result Encounter Generic External Data Provider [facility] External Department Unsolicited Start: 12-03-2024 End: 12-03-2024 Clinisync Result Encounter Generic External Data Provider [facility] External Department Unsolicited Start: 11-12-2024 End: 11-12-2024 ambulatory LEO [facility] Start: 11-04-2024 End: 11-07-2024 Clinisync Result [...] 10-14-2024 ambulatory Ming Espinoza DO Work Phone: [facility] Work Phone: Start: 10-14-2024 End: 10-14-2024 Departed Referred Ming Espinoza DO Work Phone: [facility]-LAB [facility] Start: 10-02-2024 End: 10-02-2024 Clinisync Result Encounter Generic External Data Provider [facility] External Department Unsolicited Start: 10-02-2024 End: 10-02-2024 Clinisync Result Encounter Generic External Data Provider [facility] External Department Unsolicited Start: 10-01-2024 End: 10-01-2024 Office outpatient visit 40 minutes Ming Espinoza DO Work Phone: [facility] Comment on above: Benign essential hyp ertension (CMS/HCC) (Primary Dx); Renal transplant recipient (CMS/HCC); Immunosuppressive management encounter following kidney transplant (CMS/HCC); Anemia of renal disease; Iron deficiency anemia, unspecified iron deficiency anemia type; Type 2 diabetes mellitus with stage 3a chronic kidney disease, without long-term current use of insulin (HCC) ([facility]/HCC); Dyslipidemia ([facility]/HCC); Fibromyalgia; Need for immunization against influenza Start: 10-01-2024 End: 10-01-2024 ambulatory MING ESPINOZA Not Available Start: 09-14-2024 End: 09-14-2024 Office outpatient visit 10 minutes Blake Hinojosa DO Work Phone: [facility] Comment on above: Cyst of left ovary Start: 09-14-2024 End: 09-14-2024 ambulatory BLAKE HINOJOSA Not Available Start: 08-31-2024 End: 08-31-2024 Clinisync Result Encounter Generic External Data Provider [facility] External Department Unsolicited Start: 08-31-2024 End: 08-31-2024 Clinisync Result Encounter Generic External Data Provider [facility] External Department Unsolicited Start: 08-25-2024 End: 08-25-2024 Patient encounter procedure Ming Espinoza DO Work Phone: [facility] Work Phone: Start: 08-25-2024 End: 08-25-2024 ambulatory Ming Espinoza DO Work Phone: [facility] Work Phone: Start: 08-02-2024 End: 08-03-2024 External Result Encounter Blake Hinojosa DO Work Phone: [facility] External Department Unsolicited Start: 08-02-2024 End: 08-03-2024 External Result Encounter Blake Hinojosa DO Work Phone: [facility] External Department Unsolicited Start: 08-02-2024 End: 08-02-2024 Office outpatient visit 10 minutes Blake Hinojosa DO Work Phone: [facility] Comment on above: Cyst of left ovary ( Primary Dx); Dyspareunia in female Start: 08-02-2024 End: 08-02-2024 ambulatory BLAKE HINOJOSA Not Available Start: 08-02-2024 End: 08-02-2024 Patient encounter procedure DO Ming Espinoza Work Phone: [facility]-XRay [place] Work Phone: Start: 08-02-2024 End: 08-02-2024 ambulatory DO Ming Espinoza Work Phone: [facility] Work Phone: Start: 07-31-2024 End: 07-31-2024 Clinisync Result Encounter Generic External Data Provider [facility] External Department Unsolicited Start: 07-31-2024 End: 07-31-2024 Clinisync Result Encounter Generic External Data Provider [facility] External Department Unsolicited Start: 07-27-2024 End: 07-27-2024 Office outpatient visit 15 minutes Lucero Hudson NURSERYMAN ASSISTANT Work Phone: [facility] Comment on above: Acute non-recurrent pansinusitis (Primary Dx); Side effect of medication Start: 07-27-2024 End: 07-27-2024 ambulatory MING ESPINOZA Not Available Start: 07-07-2024 End: 07-07-2024 ambulatory [facility] Start: 07-02-2024 End: 07-02-2024 ambulatory [facility] Start: 06-29-2024 End: 06-29-2024 Clinisync Result [...] Department Unsolicited Start: 05-19-2024 End: 05-19-2024 ambulatory [facility] Start: 04-27-2024 End: 04-27-2024 ambulatory MUNIRA PHAN [facility] Start: 04-23-2024 ambulatory SREE BLANCHARD [facility] Start: 04-19-2024 End: 04-19-2024 ambulatory BLAKE Peng JAYCEE Not Available Start: 04-14-2024 End: 04-14-2024 ambulatory MUNIRA PHAN Not Available Start: 03-23-2024 End: 03-23-2024 ambulatory MING ESPINOZA Not Available Start: 03-15-2024 End: 03-15-2024 ambulatory Andreia Edwards [facility] Work Phone: Start: 03-15-2024 End: 03-15-2024 Departed Referred [facility] INTERNS[facility]IPRoxy Boswell Jerry Work Phone: [facility]-Lab [place] Work Phone: Start: 03-15-2024 End: 03-15-2024 Patient encounter procedure DENTAL INTERNSHIPRoxy Edwards Work Phone: [facility] Justin Work Phone: Start: 12-23-2023 End: 12-23-2023 ambulatory MUNIRA PHAN [facility] Start: 12-01-2023 End: 12-01-2023 ambulatory MING ESPINOZA Not Available Start: 11-06-2023 End: 11-06-2023 Patient encounter procedure DO Ming Espinoza Work Phone: [facility]-Lab [address] Work Phone: Start: 11-06-2023 End: 11-06-2023 ambulatory DO Ming Espinoza Work Phone: [facility] Work Phone: Start: 10-13-2023 End: 10-13-2023 ambulatory MING ESPINOZA Not Available Start: 07-30-2022 End: 07-30-2022 ambulatory Yaneth Muñoz Other [employer] Other Start: 07-30-2022 Office outpatient vi sit 25 minutes Yaneth Toni [facility] Start: 07-29-2022 End: 07-30-2022 ambulatory YANETH TONI Facility:[facility]1 Start: 07-16-2022 End: 07-16-2022 ambulatory DO Ming Espinoza Work Phone: [facility] Work Phone: Start: 07-16-2022 End: 07-16-2022 Patient encounter procedure DO Ming Espinoza Work Phone: [facility] Start: 07-03-2022 End: 07-03-2022 ambulatory Estefania Vo Other [employer] Other Start: 07-03-2022 Follow-up encounter Estefania Vo [facility] V[facility] Surgery Start: 06-20-2022 End: 06-20-2022 ambulatory Jesus Parham Other [employer] Other Start: 06-20-2022 Telephone encounter Jesus Macedo [facility] V[facility] Surgery Start: 06-20-2022 End: 06-20-2022 Emergency department patient visit DO Ming Espinoza Work Phone: [facility]-Emergency Room Start: 06-18-2022 End: 06-18-2022 Admission to same day surgery center DO Ming Espinoza Work Phone: [facility]-Surgery Center [facility] [place] Start: 06-14-2022 End: 06-14-2022 Patient encounter procedure DO Ming Espinoza Work Phone: [facility]-Pre-Surgical Testing Start: 06-06-2022 End: 06-07-[address] BRINDA HINOJOSA Facility: Start: 06-05-2022 End: 06-05-2022 Patient encounter procedure DO Ming Espinoza Work Phone: [facility]-Pre-Surgical Testing Start: 06-03-2022 End: 06-03-2022 ambulatory Jesus Parham Other [employer] Other Start: 06-03-2022 Encounter for other preprocedural examination Jesus Chungjaclyn [facility] Vascular Surgery Start: 06-03-2022 Telephone encounter Jesus Macedo nayely [facility] Vascular Surgery Start: 05-30-2022 End: 05-30-2022 ambulatory Jesus Parham Other [employer] Other Start: 05-30-2022 [facility] visit new patient Jesus isabel [facility] Vascular Surgery Start: 05-30-2022 End: 05-30-2022 Patient encounter procedure DO Ming Espinoza Work Phone: [facility]-Ultrasound [facility] Vascular Start: 05-29-[address] BLAKE HINOJOSA [facility] ity:H1 Start: 05-02-2022 End: 05-02-2022 ambulatory Yaneth Toni Other [employer] Other Start: 05-02-2022 Office outpatient vi sit 25 minutes Yaneth Toni [facility] Nephrology Start: 04-30-2022 End: 04-30-2022 ambulatory Dipika Stnison Other [employer] Other Start: 04-30-2022 Office outpatient vi sit 15 minutes Dipika Stinson [facility] Start: 04-30-2022 Encounter for preprocedural laboratory examination YANETH TONI [facility] Start: 04-29-2022 Encounter for other preprocedural examination DR DOCTOR ALEJANDRO [facility] Start: 04-27-2022 End: 04-28-2022 Encounter for other preprocedural examination DR MING ESPINOZA Facility:[facility]1 Start: 04-27-2022 End: 04-28-[address] MING ESPINOZA Facility:[facility] Start: 04-27-2022 End: 04-28-2022 Encounter for preprocedural laboratory examination YANETH TONI Facility:[facility]1 Start: 04-03-2022 Encounter for other specified special examinations DR DOCTOR ALEJANDRO [facility] Start: 04-01-2022 End: 04-01-2022 Admission to same day surgery center DO Ming Espinoza Work Phone: [facility]-Digestive Health Start: 03-29-2022 End: 03-30-[address] DOCTOR ALEJANDRO Facility:[facility]1 Start: 03-29-2022 End: 03-30-2022 Encounter for other specified special examinations DR DOCTOR ALEJANDRO Facility:[facility]1 Start: 03-28-2022 End: 03-28-2022 Patient encounter procedure DO Ming Espinoza Work Phone: [facility]-Pre-Surgical Testing Start: 02-26-2022 End: 02-26-2022 ambulatory Shabbir Jones Other [employer] Other Start: 02-26-2022 Telephone encounter Shabbir Snow Him Director Start: 12-06-2021 End: 12-06-2021 ambulatory Yaneth Toni Other [employer] Other Start: 12-06-2021 Office outpatient vi sit 25 minutes Yaneth Toni [facility] Start: 12-03-2021 End: 12-04-2021 ambulatory YANETH TONI Facility:[facility]1 Start: 09-01-2021 End: 09-02-[address] MING ESPINOZA Facility:[facility]1 Start: 08-02-2019 End: 08-02-2019 Emergency department patient visit VIDAL MADRIGAL [facility] Start: 08-02-2019 End: 08-02-2019 Emergency department patient visit Vidal [facility] Work Phone: [facility] ED Comment on above: Acute sepsis (HCC) ( Primary Dx); Acute cystitis without hematuria; Chronic renal failure, stage 4 (severe) (HCC); Polycystic kidney disease Procedures Date Procedure Procedure Detail Performing Clinician Start: 12-03-2024 ALL CBC WITH AUTO DIFF Generic External Data Provider Start: 01-30-2025 Bacteria identified in Urine by Culture Generic External Data Provider Start: 10-14-2024 ALL URINALYSIS Generic External Data Provider Start: 10-02-2024 ALL MAGNESIUM Generic E xternal Data Provider Start: 10-02-2024 ALL PHOSPHOROUS Generic External Data Provider Start: 10-02-2024 ALL URIC ACID Generic E xternal Data Provider Start: 10-02-2024 [facility] CMP (CMP) (FOR [facility] USE) Generic External Data Provider Start: 10-02-2024 [...] Provider Start: 08-31-2024 [facility] CMP (CMP) (FOR [facility] USE) Generic External Data Provider Start: 08-31-2024 METRO BILIRUBIN, DIRECT Generic External Data Provider Start: 08-31-2024 MLR HEMOGLOBIN A1C Gene dashawn External Data Provider Start: 08-25-2024 End: 08-25-2024 Screening mammography of bilateral breasts Ming Alexis DO Work Phone: Start: 08-02-2024 Carcinoembryonic ant igen cea Blake Hinojosa DO Work Phone: Comment on above: Serial tumor marker results determined by assays using different manufacturers or methods may not be comparable. [facility] Ludi drawing tender and method: [employer], 2 SITE IMMUNOENZYMATIC SANDWICH ASSAY. Start: 08-02-2024 Plain chest X-ray DO Chong Espinoza Work Phone: Start: 08-02-2024 Carcinoembryonic ant igen cea Blake Hinojosa DO Work Phone: Comment on above: Result Comment: Seri al tumor marker results determined by assays using different manufacturers or methods may not be comparable. [facility] Ludi drawing tender and method: [employer], 2 SITE IMMUNOENZYMATIC ?SANDWICH? ASSAY. PERFORMED BY: [facility] [address] PATHOLOGIST EMBROIDERY WORKER ANAHY MCKEE M.D. Performed By: #### C A125 ####[facility] ,#### CEA ####[facility] [id number] [place] [id number] [facility] Start: 08-02-2024 Immunoassay tumor an tigen quantitative ca 125 Blkae Hinojosa DO Work Phone: Start: 07-31-2024 ALL [...] of troponin quantitative VIDAL MADRIGAL Start: 08-02-2019 Blood count complete auto&auto difrntl wbc VIDAL KAITLIN Start: 08-02-2019 BRAIN NATRIURETIC PEPTIDE VIDAL KAITLIN Start: 08-02-2019 Fibrin dgradj produc ts d-dimer quantitative VIDAL KAITLIN Start: 08-02-2019 Prothrombin time VIDAL KAITLIN Start: 08-02-2019 Assay of lactate VIDAL KAITLIN Start: 08-02-2019 Culture bacterial bl ood aerobic w/id isolates VIDAL MADRIGAL Start: 08-02-2019 INITIATE OXYGEN THER APY PROTOCOL [...] Work Phone: Start: 08-02-2019 Natriuretic peptide Letha er Kaitlin Work Phone: Start: 08-02-2019 Prothrombin [...] Screening for malign ant neoplasm of colon [facility] Start: 08-25-2025 Screening for malign ant neoplasm of breast Mammogram [facility] Start: 04-23-2025 Urine screening for protein Diabetes: Urine Protein Screening [facility] Start: 04-01-2025 End: 04-01-2025 Patient encounter procedure 04/01/2025 8:15 AM EDT Office Visit [facility] [address] [place], [place] [phone] Ming Espinoza, DO [address] [place] [address] [facility] Start: 10-14-2024 Bacteria identified in Urine by Culture Urine Culture [facility] Start: 10-14-2024 Urine culture [facility] Start: 10-01-2024 End: 10-01-2024 Patient encounter procedure 10/01/2024 8:15 AM EST Office Visit [facility] [address] [place], [place] [phone] Ming Espinoza, DO [address] [place] [address] [facility] Start: 09-14-2024 End: 09-14-2024 Patient encounter procedure 09/14/2024 8:45 AM EST Office Visit [facility] [address] [place], [place] [phone] Balke Hinojosa, DO [address] [place] [address] [facility] Start: 08-26-2024 Urine screening for protein Diabetes: Urine Protein Screening [facility] Start: 08-02-2024 End: 08-02-2024 Patient encounter procedure 08/02/2024 11:00 AM EDT Office Visit [facility] [address] [place], [place] [phone] Blake Hinojosa, DO [address] [place] [address] [facility] Start: 08-02-2024 End: 08-02-2024 Professional / ancillary services management 08/02/2024 10:15 AM EDT Ancillary Procedure [facility] [address] [place], [place] [phone] [facility] Start: 08-02-2024 [facility] Start: 07-24-2024 Hemoglobin A1c measurement Violet betes: Hemoglobin A1C [facility] Start: 06-06-2024 Influenza vaccination Influenza Vacc ine (#1) [facility] Start: 03-16-2024 Bacteria identified in Urine by Culture [facility] Start: 03-15-2024 Bacteria identified in Urine by Culture [facility] Start: 11-06-2023 [facility] Start: 07-29-2023 Urine screening for protein Diabetes: Urine Protein Screening [facility] Start: 07-16-2023 Screening for malign ant neoplasm of breast Mammogram [facility] Start: 06-18-2022 [facility] Start: 06-18-2022 [facility] Start: 04-01-2022 [facility] Work Phone: Start: 06-06-2019 Influenza vaccination Flu vaccine (# 1) [place], [place] Start: 2015 Lipid screen Lipid screen [place], [place] Start: 1996 Cervical cancer screen Cervical canc er screen [place], [place] Start: 1994 DTaP/Tdap/Td vaccine (1 - Tdap) DTaP/Tdap/Td vaccine (1 - Tdap) [employer], [place] Start: 1990 HIV screen HIV screen [place], [place] Start: 1985 Glaucoma screening Diabetes: R etinopathy Screening [facility] Start: 1975 Creatinine monitoring Creatinine mon marie [place], [place] Start: 1975 Potassium monitoring Potassium monit robyn [place], [place] Start: 1975 Screening for malign ant neoplasm of colon [facility] 24 hour urine measurement [facility] Albumin [Mass/volume ] in Serum or Plasma [facility] Albumin/Globulin ratio [facility] Aldolase measurement [facility] End: 08-02-2019 Bacteria identified Cx Nom (U) Urine Culture Microbiology STAT One Time for 1 Occurrences starting 08/02/2019 until 08/02/2019 [place] Comment on above: One Time for 1 Occur rences starting 08/02/2019 until 08/02/2019 Bacteria identified Cx Nom (U) Urine Culture Microbiology STAT 08/02/2019 1:00 PM EDT [place] Bacteria identified in Urine by Culture URINE CULTURE, ROUTINE Lab Routine 06/10/2024 1:35 PM EDT [facility] Bacteria identified in Urine by Culture URINE CULTURE, ROUTINE Lab Routine 11/04/2024 8:55 PM EST [facility] CA 125 CA 125 Lab Routi ne Cyst of left ovary Ordered: 08/02/2024 [facility] Comment on above: Ordered: 08/02/2024 Cancer Ag 125 [Units/volume] in Serum or Plasma [facility] Carcinoembryonic Ag [Mass/volume] in Serum or Plasma [facility] Lab Routine Cyst of left ovary Ordered: 08/02/2024 [facility] Work Phone: Comment on above: Ordered: 08/02/2024 End: 08-02-2019 Culture blood #1 Culture blood #1 Microbiology STAT One Time for 1 Occurrences starting 08/02/2019 until 08/02/2019 [place] Comment on above: One Time for 1 Occur rences starting 08/02/2019 until 08/02/2019 End: 08-02-2019 Culture blood #2 Culture blood #2 Microbiology STAT One Time for 1 Occurrences starting 08/02/2019 until 08/02/2019 [facility] [place] Comment on above: One Time for 1 Occur rences starting 08/02/2019 until 08/02/2019 EKG 12 Lead EKG 12 Lead ECG STAT 08/02/2019 12:25 PM EDT [place] Electrophoresis: [id number] [facility] Electrophoresis: [id number] [facility] Electrophoresis: beta-globulin [facility] Electrophoresis: laura ma globulin [facility] Globulin [Mass/volum e] in Serum [facility] Homogenous nuclear A b pattern [Titer] in Serum [facility] IgA [Mass/volume] in Serum or Plasma [facility] IgG [Mass/volume] in Serum or Plasma [facility] IgM [Mass/volume] in Serum or Plasma [facility] Immunofixation for Urine [facility] Initiate Oxygen Ther apy Protocol Initiate Oxygen Therapy Protocol Respiratory Care Routine Daily until discontinued starting 08/02/2019, 2 completed [place] Comment on above: Daily until disconti nued starting 08/02/2019, 2 completed End: 08-02-2019 Lactate, Sepsis Lactate, Sepsis Lab Timed Now Then Every 2hr for 2 Occurrences starting 08/02/2019 until 08/02/2019, 1 completed [place] Comment on above: Now Then Every 2hr f or 2 Occurrences starting 08/02/2019 until 08/02/2019, 1 completed Measurement of monoc lonal protein concentration [facility] Nuclear Ab [Titer] i n Serum [facility] Patient Education [facility] Work Phone: Patient referral [facility] Work Phone: Potassium [Moles/vol ume] in Serum or Plasma [facility] Work Phone: Protein [Mass/volume ] in Serum or Plasma [facility] Protein [Mass/volume ] in Urine [facility] Serum immunofixation [facility] Immunizations Immunization Date Immunization Notes Care Provider [facility] 10-01-2024 Influenza, Madin Roman by Canine Kidney, subunit, trivalent, injectable, contains preservative Ming Espinoza DO Work Phone: [facility] 10-26-2023 Influenza, injectabl e, Madin [place] Canine Kidney, preservative free, quadrivalent Generic Provider [facility] 10-26-2023 influenza virus vacc ine, unspecified formulation Generic [facility] 10-13-2021 COVID-19 [id number].COV2.S ([employer]) DO Ming Espinoza Work Phone: [facility] 05-29-2020 influenza, high dose seasonal, preservative-free Generic Provider [facility] 08-11-2019 influenza, injectabl e, madin raymond canine kidney, preservative free Generic Provider [facility] 01-26-2018 pneumococcal polysaccharide vaccine, 23 valent Generic Provider [facility] 07-22-2014 seasonal influenza, intradermal, preservative free Generic Provider [facility] Healthcare Payers Date Payer Category Payer Private Health Insurance [employer] [id number] 2023 Unknown [employer] [id number] 2023-Present [address] [place] [address] [id number] [id number] 2015 Unknown [employer] [address] xxxxxxxxx 2015-Present [phone] [address] [place] [address] xxxxxxxxx [id number] [id number] 1975 Unknown [id number] 2.16.840.1.971922.3.579. 2.173 1975 Unknown [id number] 2.16.840.1.115743.3.579. 2.593 1975 Unknown [id number] 2.16.840.1.756280.3.579. 2.593 1975 Unknown [id number] 2.16.840.1.525901.3.579. 2.593 1975 Unknown [id number] 2.16.840.1.812120.3.579. 2.593 1975 Unknown [id number] 2.16.840.1.605557.3.579. 2.593 1975 Unknown [id number] 2.16.840.1.800203.3.579. 2.593 1975 Unknown [id number] 2.16.840.1.931960.3.579. 2.593 1975 Unknown [id number] 2.16.840.1.964103.3.579. 2.593 1975 Unknown [id number] 2.16.840.1.487769.3.579. 2.1259 1975 Unknown [id number] 2.16.840.1.461327.3.579. 2.1259 1975 Unknown [id number] 2.16.840.1.263017.3.579. 2.1259 1975 Unknown [id number] 2.16.840.1.293110.3.579. 2.1259 1975 Unknown [id number] 2.16.840.1.114152.3.579. 2.1259 1975 Unknown [id number] 2.16.840.1.355413.3.579. 2.1259 1975 Unknown [id number] 2.16.840.1.515180.3.579. 2.1259 1975 Unknown [id number] 2.16.840.1.611010.3.579. 2.1259 1975 Unknown [id number] 2.16.840.1.902024.3.579. 2.1259 1975 Unknown [id number] 2.16.840.1.006980.3.579. 2.1259 1975 Unknown [id number] 2.16.840.1.640299.3.579. 2.1259 1959 Self-pay [id number] 1959 Unknown [id number] 1959 Unknown [id number] 2.16.840.1.890737.19 Unknown [id number] 2.16.840.1.360036.19 Unknown [id number] 2.16.840.1.645172.3.579. 2.531 Unknown [id number] 2.16.840.1.056675.3.579. 2.531 Unknown [id number] 2.16.840.1.383099.3.579. 2.531 Unknown [id number] 2.16.840.1.811964.3.579. 2.531 Unknown [id number] 2.16.840.1.524974.3.579. 2.531 Social History Date Type Detail Facility Tobacco smoking stat us SDIS Unknown if ever smoked [place] Sex Assigned At Not on file [place] Start: 04-19-2024 End: 10-01-2024 Sex Assigned At [employer] [facility] Start: 06-05-2022 End: 03-13-2023 Tobacco smoking status NHIS Never smoked tobacco (finding) [facility] Start: 1975 Sex Assigned At Female [facility] Start: 03-13-2023 Tobacco use and exposure Smokeless tobacco non-user [facility] Start: 07-27-2024 End: 10-01-2024 Alcoholic beverage [...] Start: 08-26-2024 End: 10-15-2024 Sex Female (finding) [facility] Medical Equipment Procedure Code Equipment Code Equipment Origin al Text Equipment Identifier Dates Use as instructed [id number] Start: 06-10-2023 End: 06-09-2024 Goals Date Patient Goal Desired Activity /State Clinical Notes 05-17-2020 to 11-24-2024 Carol Camacho MA - 09/14/2024 8:45 AM Elizabeth Camacho MA - 08/02/2024 11:00 AM Dar Hudson NP - 07/27/2024 8:20 AM EDT Note Date & Type Note Facility 11-24-2024 Note Patient called benigno borrero a urine culture was supposed to be done on 11/12/24. No urine culture was done. Patient states she is still having symptoms of UTI. Patient would like a callback. [facility] 11-12-2024 Note Transplant Clinic Patient : Mandeep Puri; 48 y.o. Reason for Visit: History of renal transplant. SUBJECTIVE: History Of Present Illness: Mandeep Puri is a 48 y.o. female who End-stage renal disease secondary to Polycystic Kidneys who underwent donor renal transplant on 09/20/2022. 11/12/2024 Patient returns regarding post transplant evaluation and immunosuppression regimen management. She endorses recurrent UTIs, most recently was seen at the ER in [facility], started on a course of Cipro, final culture unfortunately shows Cipro resistance but patient was not updated regarding the results She continues to have dysuria Endorses constipation up to 3 days at a time, then will take stool softener or prune juice to relieve constipation. Endorses intermittent peripheral edema worse on the right side-she does sit throughout the day, and does frequently cross her legs Denies tremors. No dyspnea or chest pain. No fever or chills. Multiple areas of pain attributed to fibromyalgia. Hydration: Drinks 50-60 ounces of water per day BP: Amlodipine 10 mg Glucose: On Ozempic 1 mg Mag: Magnesium oxide 400 mg, 2 tablets, p.o. twice daily, 4 tablets total Lipids: Pravastatin 40 mg p.o. daily K: Taking potassium chloride 20 mEq p.o. daily Immunosuppression: Envarsus XR 1.5 mg p.o. daily Myfortic 360 mg (180 mg x 2 tab), p.o. twice daily Review of Systems Negative other than pertinent positives as outlined in the above HPI Chart Reviewed Historical: >>>>>>>>>>>>>>>>>>>>>>>>>>>>>>>>>>> >>>>>>>>>>>>> 04/27/24 Review Renal US 04/14/24 Transplant/Original: IMPRESSION: 1. Right renal transplant. The renal transplant is normal in appearance. 2. Cystic replacement of both kidneys. 3. Negative for hydronephrosis or stone. 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 NO CP or SOB. No N/V/D. NO edema. Reviewed IS meds Envarsus 1.5mg Daily Myfortic 4 tabs BID Labs reviewed from 04.23.24: B/s 108 Creat 1.0 K+ 3.5 Mag 1.8 Phos 2.8 Hgb 12.8 WBC 8.7 Discussed adequate hydration. Pt continues weight loss on ozempic from PCP Pt sees GI for IBS Pt had UTI: Ecoli Treated by PCP: macrobid. Followup Urine Cx on 04/23/24: No significant growth. Pt sees her local Urologist for UTIs. Plan: continue meds and monthly labs. Hydration. See PCP. Return 6 months. See Urology and GI. 12/23/23 Pt presents for office visit. Pt hx polycystic Kidney disease and having intermittent right flank pain. None today. Will order Ultrasound crow and transplant kidney. 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 NO CP or SOB. No N/V/D. NO edema. Reviewed IS meds Envarsus 2mg Daily Myfortic 4 tabs BID Labs reviewed from 12/22/23: B/s 106; Creat 1.1 K+ 3.4 Mag 1.8 Phos 3.4 Hgb 12.8 WBC 7.8 Discussed adequate hydration. Pt lost 25 lbs on ozempic from PCP Plan: continue meds and monthly labs. Hydration. See PCP. Return 4 months. <<<<<<<<<<<<<<<<<<<<<<<<<<<<<<<<<<< <<<<<<<<<<<<< OBJECTIVE: Visit Vitals BP 136/79 (BP Location: Right arm, Patient Position: Sitting, BP Cuff Size: Adult) Pulse 73 Temp 36.8 ???C (98.2 ???F) (Oral) Resp 19 Ht 1.575 m (5' 2 ) Wt 82.6 kg (182 lb) SpO2 96% BMI 33.29 kg/m??? OB Status Hysterectomy Smoking Status Never BSA 1.9 m??? Wt Readings from Last 3 Encounters: 11/12/24 82.6 kg (182 lb) 07/07/24 78.5 kg (173 lb) 05/19/24 78.7 kg (173 lb 9.6 oz) Physical Exam Physical Exam: Constitutional: Mandeep Khushi in NO acute distress Psychiatric: Normal affect, alert and oriented HEENT: No scleral icterus Pulmonary: LCTA bilat. Is not laboring to breathe Cardiovascular: Audible S1, S2. RRR. No obvious cyanosis of the extremities Abdomen: Soft, nontender. RIF graft scar is well healed, palpable superficial without distinct hernia present. Extremities: No lower extremity edema Neurologic: Grossly nonfocal Skin: No jaundice Recent Labs I have reviewed the patient's most recent labs as listed below: Laboratory testing results from 10/30/2024 available to review in media tab in EMR: Creatinine 1.238 Chemistry: Lab Results Component Value Date/Time NA 138 04/23/2024 0757 K 3.5 04/23/2024 0757 CL 104 04/23/2024 0757 CO2 25 04/23/2024 0757 CO2 22 02/12/2022 1313 BUN 13 04/23/2024 0757 CREATININE 1.09 04/23/2024 0757 EGFR 62.7 04/23/2024 0757 GLU 100 02/12/2022 1313 CALCIUM 9.4 04/23/2024 0757 MG 1.8 (L) 04/23/2024 0757 PHOS 2.8 04/23/2024 0757 ALBUMIN 4.4 04/23/2024 0757 PROT 7.6 04/23/2024 0757 AST 14 04/23/2024 0757 ALT 9 04/23/2024 0757 BILITOT 0.4 04/23/2024 0757 ALKPHOS 74 04/23/2024 0757 Hematology: Lab Results Component Value Date WBC 8.77 04/23/2024 HGB 12.8 04/23/2024 HCT 39.2 04/23/2024 MCV 84.8 04/23/2024 PLT 337 04/23/2024 Endocrine: L (more content not included)... [facility] 11-09-2024 Note Patient called in th is [...] admission. Patient was updated and verbalized understanding. [facility] 10-21-2024 Note Pt was notified of n ew order from Dr. Blanchard by phone to complete Keflex 500mg TID for 1 week. Pt informed and verbalized understanding. RX was sent. [facility] 10-21-2024 Note Noted patient call t o [...] she had sepsis and was hospitalized @ [facility] four years ago. She at work today and seems in good humor. [facility] 10-21-2024 Note Per phone order of Kody Blanchard. , patient notified via phone call to decrease their medication Myfortic dose twice a day 360 mg , will now be on 360mg twice a day an no need for urology FU at this time. Pt informed by phone and verbalized understanding. [facility] 10-21-2024 Note Pt called wanting to talk to Lu. She has uti sx's with low grade fever, chills, abd pain. She didn't think of this yesterday when she spoke with Lu. She does want to go ahead and get the abx called into [facility] in [facility] 10-20-2024 Note Noted urine culture report showing E coli MDRO from [facility]. Pt reports using BID Methamine after [...] Pt states prior to renal transplant her filenet architect prescribed Bactrim for her to prevent UTIs and she wishes that the E Coli was gone from her urine. Verbalized understanding of colonization. Have asked urology clinic [place] staff via [employer] Secure Chat to contact pt for FU with Dr. Blanchard. Will discuss with this MD plan for return visit. [facility] 10-20-2024 Note Faxed stat request t o [facility] Med Records for results of 10/14/24 urine culture. [facility] 10-12-2024 Note Patient called, stat es she is having urinary burning, urgency and cloudy urine. Denies fever. Has a history of frequent UTI's and sees Dr. Blanchard, follow up appt is scheduled next month. Questions if she can get urine culture order sent to local lab at [facility]. . Per Dr. Monterroso, order sent. Reviewed tac level of 3.7, no changes at this time due to possible infection. Patient verbalized understanding. [facility] 09-14-2024 History of Present illness Narrative Images from the original note were not included. Blake Hinojosa, DO Obstetrics and Gynecology Mandeep Puri 1975 09/14/24 [id number] Ultrasound Follow Up Exam Chief Complaint Patient [...] LOW TRANSVERSE 07/23/2003 COLONOSCOPY 04/01/2022 Dx Diverticulosis AK BREAST REDUCTION 1996 TOTAL ABDOMINAL HYSTERECTOMY 03/19/2017 [...] 09/14/24 Time 5:00PM. documented in this encounter [facility] 08-06-2024 Note Patient tac level is 8.2, per Dr Sharla anderson, patient notified to decrease envarsus by 0.5 mg, will now be on 1.5 mg daily of envarsus, repeat level in one week. Patient verbalized understanding. [facility] 08-02-2024 History of Present illness Narrative Images from the original note were not included. Blake Hinojosa, DO Obstetrics and Gynecology Mandeep Puri 1975 08/02/24 [id number] Yearly Wellness Exam Chief Complaint Patient presents [...] LOW TRANSVERSE 07/23/2003 COLONOSCOPY 04/01/2022 Dx Diverticulosis [place] BREAST REDUCTION 1996 TOTAL ABDOMINAL HYSTERECTOMY 03/19/2017 [...] 08/02/24 Time 5:00PM. documented in this encounter [facility] 07-27-2024 History of Present illness [...] Active Problem List Diagnosis Benign essential hypertension ([facility]) Fibromyalgia MICHELLE (iron deficiency anemia) RADHA (obstructive sleep apnea) Renal transplant recipient ([facility]) Type 2 diabetes mellitus with diabetic chronic kidney disease ([facility]) Mixed anxiety and depressive disorder Dyslipidemia ([facility]) Gastroesophageal reflux disease Immunosuppressive management encounter following kidney transplant ([facility]) ADPKD (autosomal dominant polycystic kidney disease) Polyarthritis of multiple sites Anxiety Anemia of renal disease NSTEMI (non-ST elevated myocardial infarction) ([facility]) Polycystic kidney disease Secondary hyperparathyroidism ([facility]) Tonsillolith Stage 4 chronic kidney disease ([facility]) Chronic kidney disease, stage 5 ([facility]) Gout Review of Systems Constitutional: Positive [...] Lucero Hudson NP documented in this encounter [facility] 07-09-2024 Note Positive urine cultu re. Per Dr. Blanchard, Macrobid 100 mg BID x 7 days ordered to patient's pharmacy. Pt was informed and verbalized understanding. [facility] 07-07-2024 Note Chief complaint: Rec urrent [...] on file Intimate Partner Violence: Unknown (11/27/2023) [place] Safety & Environment Fear of Current or [...] cyst which she will discuss with her filenet architect. At this point we will recommend continuing the methenamine prophylaxis. She does not prove effective can consider lowering the Myfortic. Sree Blanchard MD [facility] 06-15-2024 Note Patient notified of Augmentin Rx sent in to pharmacy for positive urine culture by NORMA Jasso per [employer] secure chat. Patient verbalizes understanding. [facility] 06-10-2024 Note Patient requests uri ne culture order to be refaxed to [facility]. as the hospital is telling her not received. Order promptly refaxed with confirmation received. Pt advised to FU with coordinator and alternative fax number if hospital reports again no receipt of the order. She acknowledged understanding [facility] 06-09-2024 Note Tac level 3.0, Mg [...] Patient requests order to be faxed to [facility]. [facility] 05-19-2024 Note Chief complaint: Rec urrent [...] back after the CT. Sree Blanchard MD [facility] 04-29-2024 Note Patient urine cultur e/susceptible [...] prior to urology appointment. Patient verbalized understanding. [facility] 04-27-2024 Note 04/27/24 Chief Complaint Patient [...] Txp Referring: Yaneth Muñoz Preferred Pharmacy: [facility] - [place], [place] - [address] [place] [address] [place] [address] [facility] [address] [id number] - [place], [place] [address] [facility] [address] [address] [facility] [place] - [place] - [address] [facility] [address] [facility] [address] Subjective Visit Vitals BP 121/60 (BP Location: [...] Dose Status amLODIPine (Norvasc) 10 mg tablet [id number] Yes Take 1 tablet (10 mg) by mouth in the morning. Augila Parrish MD Taking Active bumetanide (Bumex) 2 mg tablet [id number] Take 1 tablet (2 mg) by mouth in the morning. Patient not taking: Reported on 11/08/2022 Aguila Parrish MD 10/25/22 2359 docusate sodium (Colace) 100 mg capsule [id number] Take 1 capsule (100 mg) by mouth in the morning and at bedtime. Patient not taking: Reported on 09/01/2023 Paty Ansari NP Active DULoxetine (Cymbalta) [address] capsule [id number] Yes Take 1 capsule every day by oral route. Historical Provider, Taking Active Envarsus XR 1 mg tablet ER [id number] Yes TAKE 3 TABLETS BY MOUTH ONCE DAILY IN THE MORNING. TAKE ALONG WITH 0.75 MG TABLETS DIRECTED FOR TOTAL DOSE UP TO 4.5 MG PER DAY. Patient taking differently: Take 2 mg by mouth in the morning. Aguila Parrish MD Taking Flag for Review famotidine (Pepcid) 20 mg tablet [id number] Yes Take 1 tablet (20 mg) by mouth in the morning. Patient taking differently: Take 20 mg by mouth if needed. Aguila Parrish MD Taking Active febuxostat (Uloric) 40 mg tablet [id number] Take 0.5 tablets every day by oral route. Historical Provider, Active ferrous sulfate 325 (65 Fe) MG tablet [id number] Yes Take 65 mg by mouth every other day. Historical ProviderMD Taking Active fish oil ([place]-3) 60-90-500 mg capsule [id number] Take 2 capsules (1,000 mg) by mouth in the morning and at bedtime. Patient not taking: Reported on 12/23/2023 Sujit Monterroso MD Active Levemir FlexPen 100 unit/mL (3 mL) pen [id number] INJECT 12 UNITS SUBCUTANEOUS IN AM 30 DAYS Historical ProviderMD Active magnesium oxide (Mag-Ox) 400 mg (241.3 mg magnesium) tablet [id number] Yes TAKE 2 TABLETS BY MOUTH IN THE MORNING AND 2 TABLETS AT BEDTIME Sree Blanchard MD Taking Active mycophenolate (Myfortic) 180 mg EC tablet [id number] Yes Take 4 tablets (720 mg) by mouth in the morning and at bedtime. Aguila Parrish MD Taking Active oxyCODONE-acetaminophen (Percocet) 5-325 mg tablet [id number] Take 1 tablet by mouth every 6 (six) hours if needed for severe pain (8-10 pain score) for up to 20 doses. Patient not taking: Reported on 09/01/2023 Paty Ansari NP Active potassium chloride CR (Klor-Con M20) 20 mEq ER tablet [id number] Yes Take 1 tablet (20 mEq) by mouth in the morning. Do not crush or chew. Andrea Elizondo MD Taking Active pravastatin (Pravachol) 40 mg tablet [id number] Yes Take 1 tablet (40 mg) by mouth at bedtime. Patient taking differently: Take 40 mg by mouth at bedtime. 40 mg 4 times a week. Fri Kevin Raymond MD Taking Active semaglutide (Ozempic) 2 mg/dose (8 mg/3 mL) pen injector [id number] Yes Inject 2 mg under the skin every 7 (seven) days. Historical ProviderMD Taking Active tacrolimus ER (Envarsus XR) 0.75 mg tablet ER [id number] Yes Take 2 tablets (1.5 mg) by mouth in the morning. Script total 4.5 mg daily Priyanka Villanueva MD Taking Active tacrolimus ER (Envarsus XR) 1 mg tablet ER [id number] Yes Take 3 tablets (3 mg) by mouth in the morning. Script total 4.5 mg daily Priyanka Villanueva MD Taking Active Immunization History Administered Date(s) Administered Ainsley Sars-Cov-2 Vaccination 10/13/2021 Patient Active Problem List Diagnosis Anxiety COVID-19 Depressive disorder Gastroesophageal reflux disease Gout Primary hyper (more content not included)... [facility] 04-23-2024 Note Patient TAC level, 1 [...] making change in dose. Patient verbalized understanding. [facility] 04-21-2024 Note Patient called, armida lamar [...] urine culture to be done, voiced understanding. [facility] 03-25-2024 Note Patient called, stat willard PCP stopped Bactrim and started Keflex for E-coli in urine. On 500 mg tid x 7 days. Advised to hydrate well and get labs, repeat urine culture once completed. Voiced understanding. [facility] 03-16-2024 Note Patient called benigno borrero she is currently being treated for a UTI with bactrim BID for 7 days. [facility] 02-25-2024 Note Received a call from the patient regarding the non-compliant lab letter. Explained to the patient that we had gotten some labs on her but not a CMP or BMP. Patient stated that she has always gotten her labs drawn at [facility]. She will be getting labs drawn tomorrow and she will make sure that the draw the correct labs and have the results sent to us. [facility] 12-23-2023 Note 12/23/23 Chief Complaint Patient presents with Kidney Follow-up Pt has questions about her lab work. PCP: Ming Espinoza MD Txp Referring: Yaneth Muñoz Preferred Pharmacy: [facility] - [place], [place] - [address] [place] [address] [place] [address] [facility] [address] [facility][id number] - [place] [address] [facility] [address] [address] [facility] [place] [address] [facility] [address] [facility] [address] Subjective Visit Vitals BP 116/73 (BP Location: [...] Review Audit Reviewed by Trupti Sanchez MA (Morning Babysitter) on 12/23/23 at 1430 Medication Order Taking? Sig Documenting Provider Last Dose Status amLODIPine (Norvasc) 10 mg tablet [id number] Take 1 tablet (10 mg) by mouth in the morning. Aguila Parrish MD 10/24/23 2359 bumetanide (Bumex) 2 mg tablet [id number] Take 1 tablet (2 mg) by mouth in the morning. Patient not taking: Reported on 11/08/2022 Aguila Parrish MD 10/25/22 2359 docusate sodium (Colace) 100 mg capsule [id number] Take 1 capsule (100 mg) by mouth in the morning and at bedtime. Patient not taking: Reported on 09/01/2023 Paty Ansari NP Active DULoxetine (Cymbalta) [address] capsule [id number] Yes Take 1 capsule every day by oral route. Historical ProviderMD Taking Active Envarsus XR 1 mg tablet ER [id number] Yes TAKE 3 TABLETS BY MOUTH ONCE DAILY IN THE MORNING. TAKE ALONG WITH 0.75 MG TABLETS DIRECTED FOR TOTAL DOSE UP TO 4.5 MG PER DAY. Patient taking differently: Take 2 mg by mouth in the morning. Aguila Parrish MD Taking Active famotidine (Pepcid) 20 mg tablet [id number] Yes Take 1 tablet (20 mg) by mouth in the morning. Patient taking differently: Take 20 mg by mouth if needed. Aguila Parrish MD Taking Active febuxostat (Uloric) 40 mg tablet [id number] Take 0.5 tablets every day by oral route. Historical Provider, Active ferrous sulfate 325 (65 Fe) MG tablet [id number] No Take 65 mg by mouth every other day. Historical ProviderMD Not Taking Active fish oil ([place]-3) 60-90-500 mg capsule [id number] No Take 2 capsules (1,000 mg) by mouth in the morning and at bedtime. Patient not taking: Reported on 12/23/2023 Sujit Monterroso MD Not Taking Active Levemir FlexPen 100 unit/mL (3 mL) pen [id number] No INJECT 12 UNITS SUBCUTANEOUS IN AM 30 DAYS Historical ProviderMD Not Taking Flag for Review magnesium oxide (Mag-Ox) 400 mg (241.3 mg magnesium) tablet [id number] Yes TAKE 2 TABLETS BY MOUTH IN THE MORNING AND 2 TABLETS AT BEDTIME Sree Blanchard MD Taking Active mycophenolate (Myfortic) 180 mg EC tablet [id number] Yes Take 4 tablets (720 mg) by mouth in the morning and at bedtime. Aguila Parrish MD Taking Active oxyCODONE-acetaminophen (Percocet) 5-325 mg tablet [id number] Take 1 tablet by mouth every 6 (six) hours if needed for severe pain (8-10 pain score) for up to 20 doses. Patient not taking: Reported on 09/01/2023 Paty Ansari NP Active potassium chloride CR (Klor-Con M20) 20 mEq ER tablet [id number] Yes Take 1 tablet (20 mEq) by mouth in the morning. Do not crush or chew. Andrea Elizondo MD Taking Active pravastatin (Pravachol) 40 mg tablet [id number] Yes Take 1 tablet (40 mg) by [...] Smokeless tobacco: Cara (more content not included)... [facility] 07-30-2022 Evaluation note Encounter Date [...] She has gout and follows with a cash applications clerk. She takes Urolic and denies any recent gout flare Jul, Metabolic acidemia, unspecified (ICD-10 - P19.9) She has metabolic acidosis due to the advanced CKD. Continue oral Sodium Bicarbonate [facility] Other 09-28-2022 Evaluation note* Encounter Date Diagnosis [...] disease, unspecified CKD stage (ICD-10 - N18.9) [facility] Encounter Date Diagnosis Assessment Notes Treatment Notes Treatment Clinical Notes May, Pre-op testing (ICD-10 - Z01.818) [facility] Other 08-25-2022 Evaluation note* Encounter Date Diagnosis [...] will schedule this in the near future. [facility] Other 07-28-2022 Evaluation note* Encounter Date Diagnosis [...] explained to her the potential need of TUBE BUILDING MACHINE OPERATOR in future. I discussed with her different options of TUBE BUILDING MACHINE OPERATOR including PD, HTN renal transplant. I [...] stephens s gout and follows with a cash applications clerk. She takes Urolic and denies any recent gout flare [facility] Other 07-26-2022 Evaluation note* Encounter Date Diagnosis [...] care provider if no improvement of symptoms. [facility] Other 05-24-2022 Evaluation note* Encounter Date Diagnosis Assessment Notes Treatment Notes Treatment Clinical Notes February, Screening for colon cancer (ICD-10 - Z12.11) [facility] Other 03-03-2022 Evaluation note* Encounter Date Diagnosis [...] explained to her the potential need of TUBE BUILDING MACHINE OPERATOR in future. I discussed with her different options of TUBE BUILDING MACHINE OPERATOR including PD, HTN renal transplant. I [...] She has gout and follows with a cash applications clerk. She takes Urolic and denies any recent gout flare [facility] Other 06-25-2021 NotePatient Outreach (NEPHMN) MANDEEP PURI ([id number]) 1975 F Date Time Provider Department 03/30/21 PERRI BARRETT During your visit today, we recorded the following information about you: Allergies As of Date: 03/30/2021 Noted Allergy Reaction ALLOPURINOL 08/02/2019 4 - Hives Date Reviewed: 03/30/2021 Reviewed by: Perri Barrett MD - Fully Assessed Visit Diagnosis:Screening for genitourinary condition [Z13.89] Order(s):URINALYSIS, DIPSTICK ONLY [SQUA] Order #: [id number]. #:[id number] Prescriptions as of 03/30/2021 Sig: DULOXETINE 60 [...] dominant polycystic kidney dis*03/30/2021 Encounter Status:Closed by [employer]id[employer] PharmaceuticalsUSER on 04/02/21[facility] 03-30-2021 NoteHNO ID: [id number] Author: Perri Barrett MD Service: ? Author Type: Physician Type: Progress Notes Filed: 03/30/2021 10:25 AM Note Text: Mrs. 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 [facility] general Narrative - Reported * Type Description Date Medical History HTN (hypertension) Medical History Anxiety Medical History polycystic kidneys Medical History COVID 05-17-2020 Surgical History C section Surgical History BREAST REDUCTION Hospitalization History child Hospitalization History KIDNEY INFECTION 07/2019 Hospitalization History COVID AND DEHYDRATION [facility] Other 08-12-2020 History general Narrative - Reported* Type Description Date Medical History HTN (hypertension) Medical History Anxiety Medical History polycystic kidneys Medical History COVID 05-17-2020 Medical History end stage renal disease Surgical History C section Surgical History BREAST REDUCTION Surgical History colonoscopy 04/01/2022 Surgical History wisdom teeth 03/24/2022 Hospitalization History child Hospitalization History KIDNEY INFECTION 07/2019 Hospitalization History COVID AND DEHYDRATION [facility] Other 08-12-2020 History general Narrative - Reported* [...] INFECTION 07/2019 Hospitalization History COVID AND DEHYDRATION [facility] Other 08-12-2020 History general Narrative - Reported* [...] INFECTION 07/2019 Hospitalization History COVID AND DEHYDRATION [facility] Other evaluation noteNo assessment information available [facility] Work Phone: Evaluation noteNo InformationNort [employer] Other Evaluation note* Diagnosis Onset Date Resolution Status Dysuria acute UTI (urinary tract infection) acute [facility] Work Phone: Evaluation note* Diagnosis Acute non-recurrent pansinusitis- Primary Side effect of medication documented in this encounter [facility] HealthcareEvaluation note* Diagnosis Cyst of left ovary- Primary Other and unspecified ovarian cyst Dyspareunia in female documented in this encounter [facility] HealthcareEvaluation note* Diagnosis Cyst of left ovary Other and unspecified ovarian cyst documented in this encounter [facility] HealthcareEvaluation note* Diagnosis Benign essential hypertension ([facility]/HCC)- Primary Essential hypertension, benign Renal transplant recipient ([facility]) Immunosuppressive management encounter following kidney transplant ([facility]) Encounter for long-term (current) use of other medications Anemia of renal disease Anemia in chronic kidney disease Iron deficiency anemia, unspecified iron deficiency anemia type Type 2 diabetes mellitus with stage 3a chronic kidney disease, without long-term current use of insulin (HCC) (CMS/[facility]) Dyslipidemia (CMS/[facility]) Other and unspecified hyperlipidemia Fibromyalgia Unspecified myalgia and myositis Need for immunization against influenza Need for prophylactic vaccination and inoculation against influenza documented in this encounter [facility] Diagnosis Acute sepsis (HCC)- Primary Acute cystitis without hematuria Acute cystitis Chronic renal failure, stage 4 (severe) ([facility]) Polycystic kidney disease Polycystic kidney, unspecified type Advance Directives No Advanced Directives Records FoundDocuments on File Type Date Recorded Patient Neurosurgery Research Director Expl anation Advance Directives and Living Will Power of Automation Controls Expert Advance Directive Response Recorded Date/ Time Advance [...] content) DATE CREATED AUTHOR 08/04/2019 Marielena Castillo [facility] DATE CREATED AUTHOR AUTHOR'S ORGANIZ ATION 04/28/2020 [facility] DATE CREATED AUTHOR AUTHOR'S ORGANIZ ATION 09/12/2020 [facility] DATE CREATED AUTHOR AUTHOR'S ORGANIZ ATION 11/07/2021 [facility] DATE CREATED AUTHOR AUTHOR'S ORGANIZ ATION 02/27/2022 [facility] DATE CREATED AUTHOR AUTHOR'S ORGANIZ ATION 08/04/2022 [facility] DATE CREATED AUTHOR AUTHOR'S ORGANIZ ATION 10/02/2024 [facility] DATE CREATED AUTHOR AUTHOR'S ORGANIZ ATION 10/19/2024 [facility] DATE CREATED AUTHOR AUTHOR'S ORGANIZ ATION 12/18/2024 [facility] Care Teams (unrecognized sec tion and [...] March 15, 2024 End: March 15, 2024 Search Marketing Coordinator Relationship Specialty Start Date End Date Ming Espinoza DO [address] [place] [address] PCP - [facility] [place] [employer] 10/06/21 10/05/99 Ming Espinoza DO [address] [place] [address] PCP - General Internal Medicine 05/02/23 Search Marketing Coordinator Relationship Specialty Start Date End Date Ming Espinoza DO [address] [place] [address] PCP - [facility] [place] [facility] 10/06/21 10/05/99 Ming Espinoza DO [address] [place] [address] PCP - General Internal Medicine 05/02/23 Search Marketing Coordinator Relationship Specialty Start Date End Date Ming Espinoza DO [address] [place] [address] PCP - [facility] [place] [employer] 10/06/21 10/05/99 Ming Espinoza DO [address] [place] [address] PCP - General Internal Medicine 05/02/23 Search Marketing Coordinator Relationship Specialty Start Date End Date Ming Espinoza DO [address] [place] [address] PCP - [facility] [place] [employer] 10/06/21 10/05/99 Ming Espinoza DO [address] [place] [address] PCP - General Internal Medicine 05/02/23 Team [...] Provider Active Start: August 25, 2024 End: November 20th, 202Onelia Espinoza DO Primary Care Provider Active Start: August 25, 2024 End: August 25, 2024 Search Marketing Coordinator Relationship Specialty Start Date End Date Ming Espinoza DO [address] [place] [address] PCP - [facility] [place] [employer] 10/06/21 10/05/99 Ming Espinoza DO [address] [place] [address] PCP - General Internal Medicine 05/02/23 Search Marketing Coordinator Relationship Specialty Start Date End Date Ming Espinoza DO [address] [place] [address] PCP - [facility] [place] [employer] 10/06/21 10/05/99 Ming Espinoza DO [address] [place] [address] PCP - General Internal Medicine 05/02/23 Search Marketing Coordinator Relationship Specialty Start Date End Date Ming Espinoza DO [address] [place] [address] PCP - [facility] [place] [employer] 10/06/21 10/05/99 Ming Espinoza DO [address] [place] [address] PCP - General Internal Medicine 05/02/23 Search Marketing Coordinator Relationship Specialty Start Date End Date Ming Espinoza DO [address] [place] [address] PCP - [facility] [place] [employer] 10/06/21 10/05/99 Ming Espinoza DO [address] [place] [address] PCP - General Internal Medicine 05/02/23 Search Marketing Coordinator Relationship Specialty Start Date End Date Ming Espinoza [address] [place] [address] PCP - [facility] [place] [employer] 10/06/21 10/05/99 Alexis Minglizz Preston DO [address] [place] [address] PCP - General Internal Medicine 05/02/23 Team Status: Inactive Member Role Status Dates Ming Espinoza DO Primary Care Provider Active Start: October 14, 2024 End: October 14, 2024 Sujit Monterroso MD Attending Provider Active S tart: October 14, 2024 End: October 14, 2024 Search Marketing Coordinator Relationship Specialty Start Date End Date Ming EspinozaDO [address] [place] [address] [facility] Commercial 10/06/21 10/05/99 AlexisMing DO [address] [place] [address] PCP - General Internal Medicine 05/02/23 Goals [...] BE BASED ON THE PRIMARY CLINICAL RECORDS. [employer] [facility]. provides no warranty or guarantee of the accuracy or completeness of information in this document.
[2024-12-30 07:38] LABS: Basophils Percent Auto 0.6 % (0.2-2.0); Eosinophils Absolute Auto 0.3 10^3/uL (0.0-0.7); Eosinophils Percent Auto 4.2 % (0.9-7.0); Hematocrit 38.8 % (36.0-48.0); Hemoglobin 12.7 g/dL (12.0-16.0); Immature Granulocytes Abs Auto 0.04 10^3/uL (0.00-0.03); Immature Granulocytes Pct Auto 0.6 % (0.0-0.5); Lymphocytes Absolute Auto 1.5 10^3/uL (1.2-3.8); Lymphocytes Percent Auto 21.5 % (20.5-60.0); Mean Corpuscular HGB Conc 32.7 g/dL (29.9-35.2); Mean Corpuscular Hemoglobin 28.5 pg (26.7-34.0); Mean Platelet Volume 8.6 fL (9.5-13.5); Monocytes Absolute Auto 0.4 10^3/uL (0.3-0.8); Monocytes Percent Auto 5.9 % (1.7-12.0); Neutrophils Absolute Auto 4.8 10^3/uL (1.4-6.5); Neutrophils Percent Auto 67.2 % (43.0-75.0); Platelet Count 292 10^3/uL (150-450); Red Blood Count 4.46 10^6/uL (4.20-5.40); Red Cell Distribution Width 14.7 % (11.0-15.0); White Blood Count 7.1 10^3/uL (4.0-11.0)
[2024-12-30 07:55] LABS: Alanine Aminotransferase 25 U/L (14-59); Albumin Level 3.8 g/dL (3.4-5.0); Alkaline Phosphatase 100 U/L (46-116); Anion Gap 11.9; Aspartate Amino Transferase 17 U/L (15-37); BUN Creatinine Ratio 13.6; Bilirubin Direct 0.1 mg/dL (0.0-0.2); Bilirubin Total 0.4 mg/dL (0.2-1.0); Calcium 9.3 mg/dL (8.5-10.1); Carbon Dioxide 26.8 mmol/L (21.0-32.0); Chloride 107 mmol/L (98-107); Estimated GFR (African America 48 (>=60 mL/min/1.73m^2); Estimated GFR (Non-African Ame 40 (>=60 mL/min/1.73m^2); Globulin 3.8 g/dL; Glucose 109 mg/dL (74-106); Potassium 3.7 mmol/L (3.5-5.1); Sodium 142 mmol/L (136-145); Total Protein 7.6 g/dL (6.4-8.2); Uric Acid 4.3 mg/dL (2.6-6.0)
[2024-12-30 08:42] LABS: Magnesium 2.2 mg/dL (1.8-2.4); Phosphorus 3.8 mg/dL (2.6-4.7)
== END 2024-12-30 07:12 | disposition home or self-care (01) ==
PROVIDERS: PCP Internal Medicine
DX: R73.01 Impaired fasting glucose (principal); Z94.0 Kidney transplant status; E78.5 Hyperlipidemia, unspecified; R60.9 Edema, unspecified
CPT/HCPCS: 36415; 80053; 80197; 82248; 83735; 84100; 84550; 85025

== ENCOUNTER 2025-01-29 08:34 | Outpatient (OUT) | payer OTHER, SELFPAY ==
[2025-01-29 09:03] LABS: Basophils Absolute Auto 0.1 10^3/uL (0.0-0.1); Basophils Percent Auto 0.7 % (0.2-2.0); Eosinophils Absolute Auto 0.2 10^3/uL (0.0-0.7); Eosinophils Percent Auto 2.7 % (0.9-7.0); Hematocrit 41.9 % (36.0-48.0); Hemoglobin 13.9 g/dL (12.0-16.0); Immature Granulocytes Abs Auto 0.03 10^3/uL (0.00-0.03); Immature Granulocytes Pct Auto 0.4 % (0.0-0.5); Lymphocytes Absolute Auto 1.6 10^3/uL (1.2-3.8); Lymphocytes Percent Auto 19.1 % (20.5-60.0); Mean Corpuscular HGB Conc 33.2 g/dL (29.9-35.2); Mean Corpuscular Hemoglobin 28.7 pg (26.7-34.0); Mean Corpuscular Volume 86.4 fL (81.0-99.0); Mean Platelet Volume 8.6 fL (9.5-13.5); Monocytes Absolute Auto 0.6 10^3/uL (0.3-0.8); Monocytes Percent Auto 6.4 % (1.7-12.0); Neutrophils Percent Auto 70.7 % (43.0-75.0); Platelet Count 289 10^3/uL (150-450); Red Blood Count 4.85 10^6/uL (4.20-5.40); Red Cell Distribution Width 14.5 % (11.0-15.0); White Blood Count 8.5 10^3/uL (4.0-11.0)
[2025-01-29 09:39] LABS: Alanine Aminotransferase 24 U/L (14-59); Albumin Level 3.8 g/dL (3.4-5.0); Alkaline Phosphatase 89 U/L (46-116); Anion Gap 13.1; Aspartate Amino Transferase 20 U/L (15-37); BUN Creatinine Ratio 10.5; Bilirubin Direct 0.1 mg/dL (0.0-0.2); Bilirubin Total 0.5 mg/dL (0.2-1.0); Calcium 9.9 mg/dL (8.5-10.1); Carbon Dioxide 27.3 mmol/L (21.0-32.0); Chloride 104 mmol/L (98-107); Estimated GFR (African America 56 (>=60 mL/min/1.73m^2); Estimated GFR (Non-African Ame 46 (>=60 mL/min/1.73m^2); Globulin 3.8 g/dL; Glucose 118 mg/dL (74-106); Magnesium 1.8 mg/dL (1.8-2.4); Potassium 3.4 mmol/L (3.5-5.1); Sodium 141 mmol/L (136-145); Total Protein 7.6 g/dL (6.4-8.2); Uric Acid 4.6 mg/dL (2.6-6.0)
== END 2025-01-29 08:35 | disposition home or self-care (01) ==
LOC: LAB 08:36
PROVIDERS: PCP Internal Medicine; Visit Provider Internal Medicine Nephrology
DX: R73.01 Impaired fasting glucose (principal); Z94.0 Kidney transplant status; E78.5 Hyperlipidemia, unspecified; R60.9 Edema, unspecified
CPT/HCPCS: 36415; 80053; 80197; 82248; 83735; 84550; 85025

== ENCOUNTER 2025-03-03 07:02 | Outpatient (OUT) | payer OTHER, SELFPAY ==
--- OUTSIDE RECORDS SUMMARY | 2025-03-03 07:05 | XMS_ITS | Encounter Summary ---
Author Organization [facility] Address [address] [place] [address] Care Team Providers Care Supervisor Typesetting Name Role Phone Ming Triplett DO Unavailable [phone] Ming Triplett DO Primary Care Provider [phone] Encounter Details Date Type Department Care Team (Late st Contact Info) Description 07/31/2023 Orders Only [facility] [address] [facility] [address] [place] [address] A, Unknown Practice [address] [place], [place] [id number] Social History Tobacco Use Types Packs/Day Years Used Date Smoking Tobacco: Never Smokeless Tobacco: Never Alcohol Use Standard Drinks/Week Comments Never 0 (1 standard drink = 0.6 oz pur e alcohol) Caffeine: occasional tea Comments Unknown Sex and Gender Information Value Date Recorded Sex Assigned at Female 03/25/2023 2:02 PM EDT Legal Sex Female 6:37 PM EDT Gender Identity Female 03/25/2023 2:02 PM EDT Sexual Orientation Straight 10/08/2023 9: 32 AM EST Occupation Industry Job Start Date Job End Date Unemployed Not on file Not on file Not on file documented as of this encounter Plan of Treatment Upcoming Encounters Date Type Department Care Team (Late st Contact Info) Description 04/06/2025 8:15 AM EDT Office Visit [facility] [address] [facility] [address] [place] [address] Ming Triplett DO [address] [place] [address] documented as of this encounter Procedures Procedure Name Priority Date/Time Associated Diagnosis Comments MAMMO 3D,BILATERAL SCREENING MAMMOGRAM WITH TOMOSY Routine 07/31/2023 10:04 AM EDT documented in this encounter Results * MAMMO 3D,BILATERAL SCREENING MAMMOGRAM WITH TOMOSY (07/31/2023 10:04 AM EDT) Anatomical Region Laterality Modality Radiographic Vivian ging us Unknown Practice A IMG XR PROCEDURES Final Resul t documented in this encounter Visit Diagnoses Not on filedocumented in this encounter Care Teams Supervisor Typesetting Relationship Specialty Start Date End Date Ming Triplett DO [address] [place] [address] PCP - Medical [place] [employer] 10/06/21 10/05/99 Ming Triplett DO [address] [place] [address] PCP - General Internal Medicine 05/02/23 documented as of this encounter
--- OUTSIDE RECORDS SUMMARY | 2025-03-03 07:05 | XMS_ITS | Clinical Summary ---
Author Organization [facility] Address [address] [place] [address] Care Team Providers Care Blocker Metal Base Name Role Phone Ming Triplett DO Unavailable [phone] Ming Triplett DO Primary Care Provider [phone] Allergies Active Allergy Reactions Criticality Noted Date Comments Allopurinol Rash Low 02/17/2023 Venlafaxine 03/15/2024 Other Reaction(s): Rash, hives Venlafaxine Hcl 02/17/2023 Other Reaction(s): bad side effect Medications tacrolimus ER (Envarsus XR) 1 MG tablet ER Take 2 tablets by mouth in the morning. Active ferrous sulfate 325 (65 Fe) MG tablet Take 1 tablet by mouth every other day. 1 Active mycophenolate (Myfortic) 180 MG EC tablet Take 4 tablets by mouth in the morning and 4 tablets before bedtime. Active pravastatin (Pravachol) 40 MG tablet Take by mouth at bedtime Active KLOR-CON 20 MEQ ER tablet Take 20 mEq by mouth Daily Active amLODIPine (Norvasc) 10 MG tabletIndications :Benign essential hypertension (CMS/HCC) TAKE 1 TABLET BY MOUTH EVERY DAY IN THE MORNING 90 tablet 3 4 Active magnesium oxide (Mag-Ox) 400 (240 Mg) MG tablet TAKE 2 TABLETS BY MOUTH IN THE MORNING AND 2 TABLETS AT BEDTIME 4 Active methenamine hippurate (Hiprex) 1 g tablet TAKE 1 TABLET (1 G) BY MOUTH TWO TIMES DAILY. Active DULoxetine (Cymbalta) [address] capsule Take 30 mg by mouth in the morning and 30 mg before bedtime. Take with 60 MG tablet. Active DULoxetine (Cymbalta) [address] capsule Take 60 mg by mouth Daily Take with 30 MG tablet Active Envarsus XR 0.75 MG tablet ER 4 Active tiZANidine (Zanaflex) 4 MG tablet Take 4 mg by mouth at bedtime 4 Active semaglutide (Ozempic, 1 MG/DOSE,) 4 MG/3ML solution pen-injectorIndic ations:Type 2 diabetes mellitus with other specified complication, without long-term current use of insulin INJECT 1 MG UNDER THE SKIN 1 (ONE) TIME PER WEEK 9 mL 3 5 Active Semaglutide, 2 MG/DOSE, (Ozempic, 2 MG/DOSE,) 8 MG/3ML solution pen-injectorIndic ations:Type 2 diabetes mellitus with stage 3a chronic kidney disease, without long-term current use of insulin (HCC) (CMS/HCC) Inject 2 mg under the skin 1 (one) time per week 12 mL 1 5 Active Active Problems Problem Noted Date Diagnosed Date Anemia of renal disease 04/16/2024 NSTEMI (non-ST elevated myocardial infarction) 0 04/16/2024 Polycystic kidney disease 04/16/2024 Secondary hyperparathyroidism 04/16/2024 Tonsillolith 04/16/2024 Polyarthritis of multiple sites 06/10/2023 Benign essential hypertension 03/04/2023 Fibromyalgia 03/04/2023 MICHELLE (iron deficiency anemia) 03/04/2023 RADHA (obstructive sleep apnea) 03/04/2023 Renal transplant recipient 03/04/2023 Type 2 diabetes mellitus wit h diabetic chronic kidney disease 03/04/2023 Dyslipidemia 12/25/2022 Immunosuppressive management encounter following kidney transplant 10/23/2022 Gastroesophageal reflux disease 07/01/2022 Anxiety 07/01/2022 Gout 07/01/2022 Overview (04/16/2024): hyperuricemia/gout ADPKD (autosomal dominant polycystic kidney dise ase) 03/30/2021 Mixed anxiety and depressive disorder 11/03/2018 Resolved Problems Problem Noted Date Diagnosed Date Resolved Date Stage 3a chronic kidney disease (HCC) 10/01/2024 01/03/2025 Chronic kidney disease, stage 5 04/16/2024 10/01/2024 HTN (hypertension) 03/04/2023 Hyperuricemia 03/04/2023 03/13/2023 IFG (impaired fasting glucose) 03/04/2023 03/13/2023 CKD (chronic kidney disease) stage 4, GFR 15-29 ml/min 03/04/2023 03/13/2023 Gouty arthritis 03/04/2023 03/13/2023 Stage 4 chronic kidney disease 07/01/2022 10/01/2024 Encounters Date Type Department Care Team Description 01/29/2025 Clinisync Result Encounter [facility] External Department Unsolicited Provider, Generic External Data 01/03/2025 3:15 PM EDT Office Visit [facility] [address] [place] [address] Ming Triplett DO Polycystic kidney disease (Primary Dx); Anemia of renal disease; Immunosuppressive management encounter following kidney transplant ([facility]); Renal transplant recipient ([facility]); Type 2 diabetes mellitus with stage 3a chronic kidney disease, without long-term current use of insulin ([facility]) ([facility]); Dyslipidemia ([facility]); Type 2 diabetes mellitus with other specified complication, without long-term current use of insulin ([facility]) 01/03/2025 Travel 12/30/2024 Clinisync Result Encounter [facility] External Department Unsolicited Provider, Generic External Data 12/03/2024 Clinisync Result Encounter [facility] External Department Unsolicited Provider, Generic External Data from Last 3 Months Immunizations Immunization Administration Dates Next Due Influenza, High Dose Seasonal, Preservative Free 05/29/2020 Influenza, Injectable, MDCK, preservative free 1 10/11/2018 Influenza, Madin Sarah Canin e Kidney, subunit, trivalent, injectable, contains preservative 10/01/2024 Influenza, injectable, MDCK, preservative free, quadrivalent 10/26/2023 Influenza, seasonal, intradermal, preservative f ree 07/22/2014 Pneumococcal Polysaccharide PPSV23 01/26/2018 Family History Medical History Relation Name Comments No Known Problems Brother Heart disease Father Selvin Hyperlipidemia Father Selvin Polycystic kidney disease Father Selvin Esophageal cancer Maternal Grandmother Fibromyalgia Mother Fibromyalgia Sister Relation Name Status Comments Brother Father Selvin Maternal Grandmother Mother Sister Son Alive Social History Tobacco Use Types Packs/Day Years Used Date Smoking Tobacco: Never Smokeless Tobacco: Never Tobacco Cessation:Counseling Given: Not Answered Alcohol Use Standard Drinks/Week Comments Never 0 (1 standard drink = 0.6 oz pur e alcohol) Caffeine: occasional tea AUDIT-C Answer Date Recorded Q1: How often do you have a drink containing alcohol? Never 04/19/2024 Q2: How many drinks containi ng alcohol do you have on a typical day when you are drinking? Patient does not drink Q3: How often do you have si x or more drinks on one occasion? Never 04/19/2024 PHQ-2 Answer Date Recorded Patient Health Questionnaire-2 Score 0 04/19/2024 Comments No Sex and Gender Information Value Date Recorded Sex Assigned at Female 03/25/2023 2:02 PM EDT Legal Sex Female 6:37 PM EDT Gender Identity Female 03/25/2023 2:02 PM EDT Sexual Orientation Straight 10/08/2023 9: 32 AM EST Occupation Industry Job Start Date Job End Date Unemployed Not on file Not on file Not on file Last Filed Vital Signs Vital Sign Reading Time Taken Comments Blood Pressure 124/82 01/03/2025 2:24 PM EDT Pulse 78 01/03/2025 2:24 PM EDT Temperature 36.6 C (97.8 F) 07/27/2024 8:34 AM EDT Respiratory Rate - - Oxygen Saturation 97% 01/03/2025 2:24 PM EDT Inhaled Oxygen Concentration - - Weight 83.5 kg (184 lb) 01/03/2025 2:24 PM EDT Height 154.9 cm (5' 1 ) 10/01/2024 8:19 AM EST Body Mass Index 34.77 10/01/2024 8:19 AM EST Plan of Treatment Upcoming Encounters Date Type Department Care Team (Late st Contact Info) Description 04/06/2025 8:15 AM EDT Office Visit [facility] [address] [place] [address] Ioana, Ming A, DO [address] [place] [address] Health Maintenance Due Date Last Done Comments CT Colonography 1975 FIT-DNA 1975 FIT 1975 FOBT 1975 Sigmoidoscopy 1975 Diabetes: Retinopathy Screening 1985 Diabetes: Urine Protein Screening 07/29/2023 07/29/2022, 04/27/2022, 04/27/2022, Additional history exists Diabetes: Hemoglobin A1C 07/24/2024 024, 04/23/2024, 08/26/2023, Additional history exists Mammogram 08/25/2025 08/25/2024, 07/07, 07/16/2022, Additional history exists Colonoscopy 04/01/2032 04/01/2022 Colorectal Cancer Screening 04/01/2032 Cervical Cancer Screening Discontinued HPV/Cotest Discontinued 04/19/2024 Influenza Vaccine Completed 10/01/2024, , 05/29/2020, Additional history exists Pap Smear Discontinued Procedures Procedure Name Priority Date/Time Associated Diagnosis Comments ALL MISCELLANEOUS TEST Routine 01/29/2025 8:50 AM EDT METRO BILIRUBIN, DIRECT Routine 01/29/2025 8:50 AM EDT ALL MAGNESIUM Routine 01/29/2025 8:50 AM EDT ALL URIC ACID Routine 01/29/2025 8:50 AM EDT [facility] CMP (CMP) (FOR REMOTE [facility] USE) Routine 01/29/2025 8:50 AM EDT ALL CBC WITH AUTO DIFF Routine 01/29/2025 8:50 AM EDT ALL MISCELLANEOUS TEST Routine 12/30/2024 7:27 AM EDT ALL MAGNESIUM Routine 12/30/2024 7:27 AM EDT ALL PHOSPHOROUS Routine 12/30/2024 7:27 AM EDT ALL CBC WITH AUTO DIFF Routine 12/30/2024 7:27 AM EDT METRO BILIRUBIN, DIRECT Routine 12/30/2024 7:27 AM EDT ALL URIC ACID Routine 12/30/2024 7:27 AM EDT [facility] CMP (CMP) (FOR REMOTE [facility] USE) Routine 12/30/2024 7:27 AM EDT ALL MISCELLANEOUS TEST Routine 12/03/2024 7:23 AM EST BKV QUANT PCR Routine 12/03/2024 7:23 AM EST ALL LIPID PROFILE (FASTING) Routine 12/03/2024 7:23 AM EST METRO BILIRUBIN, DIRECT Routine 12/03/2024 7:23 AM EST ALL MAGNESIUM Routine 12/03/2024 7:23 AM EST ALL URIC ACID Routine 12/03/2024 7:23 AM EST [facility] CMP (CMP) (FOR REMOTE [facility] USE) Routine 12/03/2024 7:23 AM EST MLR HEMOGLOBIN A1C Routine 12/03/2024 7: 23 AM EST ALL CBC WITH AUTO DIFF Routine 12/03/2024 7:23 AM EST BI MAMMOGRAM SCREENING TOMOSYNTHESIS BILATERAL 08/25/2024 3:23 PM EST THINPREP IMAGING PAP W/REFL HPV MRNA E6/E7 Routine 04/19/2024 12:00 AM EDT Encounter for Papanicolaou smear of vagina POCT GLYCOSYLATED HEMOGLOBIN (HGB A1C) Routine 06/10/2023 4:14 PM EDT Type 2 diabetes mellitus with stage 3a chronic kidney disease, without long-term current use of insulin (HCC) ([facility]/HCC) URINE T PROTEIN CREAT RATIO Routine 07/29/2022 COLONOSCOPY Routine 04/01/2022 12:00 PM EDT from Last 3 Months or Most Recently Relevant to Health Maintenance Results * METRO BILIRUBIN, DIRECT (01/29/2025 8:50 AM EDT) Only the most recent of3 resultswithin the time period is included. BILIRUBIN DIRECT 0.1 0.0 - 0.2 mg/dL TB 01/29/2025 8:50 AM EDT 01/29/2025 8:58 AM EDT Narrative CLINISYNC - 01/29/2025 9:41 AM EDT Generic External Data Provider [facility]INIS[facility]NC F inal Result [facility] * ([facility]NORM[facility]) [facility] CMP (CMP) (FOR REMOTE [facility] USE) (01/29/2025 8:50 AM EDT) Only the most recent of3 resultswithin the time period is included. SODIUM 141 136 - 145 mmol/L TBH POTASSIUM 3.4(L) 3.5 - 5.1 mmol/L TBH CHLORIDE 104 98 - 107 mmol/L TBH CARBON DIOXIDE 27.3 21.0 - 32.0 mmol/L TBH ANION GAP 13.1 TBH GLUCOSE 118(H) 74 - 106 mg/dL TBH BLOOD UREA NITROGEN 13.0 7.0 - 18.0 mg/dL TBH CREATININE 1.24(H) 0.55 - 1.02 mg/dL TBH TBH EGFR-AF NAMIBIAN 56(L) >=60 mL/min/1. 73m 2 TBH TBH EGFR-NON AF NAMIBIAN 46(L) >=60 mL/min/1. 73m 2 TBH BUN CREATININE RATIO 10.5 TBH CALCIUM 9.9 8.5 - 10.1 mg/dL TBH BILIRUBIN TOTAL 0.5 0.2 - 1.0 mg/dL TBH ASPARTATE AMINO TRANSFERASE 20 15 - 37 U/L TBH ALANINE AMINOTRANSFERASE 24 14 - 59 U/L TBH ALKALINE PHOSPHATASE 89 46 - 116 U/L TBH TOTAL PROTEIN 7.6 6.4 - 8.2 g/dL TBH ALBUMIN LEVEL 3.8 3.4 - 5.0 g/dL TBH GLOBULIN 3.8 g/dL TBH ALBUMIN GLOBULIN RATIO 1.0 TBH 01/29/2025 8:50 AM EDT 01/29/2025 8:58 AM EDT Located Within [facility] CLINISYWV - 01/29/2025 9:41 AM EDT Generic External Data Provider CLINISYNC F inal Result Performing Organization Address [facility] de Phone Number [facility] * ALL URIC ACID (01/29/2025 8:50 AM EDT) Only the most recent of3 resultswithin the time period is included. URIC ACID 4.6 2.6 - 6.0 mg/dL [facility] 01/29/2025 8:50 AM EDT 01/29/2025 8:58 AM EDT Located Within [facility] CLINISYWV - 01/29/2025 9:41 AM EDT Generic External Data Provider CLINISYNC F inal Result Performing Organization Address [facility] de Phone Number [facility] * ALL MISCELLANEOUS TEST (01/29/2025 8:50 AM EDT) Only the most recent of3 resultswithin the time period is included. MISCELLANEOUS TEST COMMENT . [facility] Comment: Test Ordered: [id number] Tacrolimus Rebaseline, IA Tacrolimus by Immunoassay 5.7 ng/mL CB Reference Range: 5.0-20.0 Detection Limit = 0.8 ng/mL Target steady state trough concentration for Tacrolimus varies based on type of organ transplant immunosuppressive protocol and other patient specific factors. Tacrolimus trough concentrations should be interpreted in conjunction with clinical assessments of rejection and tolerability. Values obtained with different assay methods cannot be used interchangeably due to differences in assay methods and cross-reactivity with metabolites, nor should correction factors be applied. Therefore, consistent use of one assay for individual patients is recommended. Tacrolimus assay performed by Eyad Immunoassay. Please note reference interval change [facility] will offer rebaseline testing (Test No. [id number]) through February 02, 2025. The rebaseline test will include results from both the current method (RentJuice) and the new method (Eyad). All test results indicate the insurance examining clerk of the test on the laboratory report. The rebaseline test for tacrolimus immunoassay is charged at the warner for the new test; the test for the retiring method is performed at no additional charge. Tacrolimus IA by Equidam 7.8 ng/mL Reference Range: . Performed at: [address] [id number] Safety Instructor: Gabriel Whitman PhD, Phone: [phone] 01/29/2025 8:50 AM EDT 01/29/2025 8:58 AM EDT Narrative CLINISYNC - 01/31/2025 4:08 PM EDT [id number] TACROLIMUS Generic External Data Provider CLINISYNC F inal Result Performing Organization Address [facility] Co de Phone Number [facility] * ALL MAGNESIUM (01/29/2025 8:50 AM EDT) Only the most recent of3 resultswithin the time period is included. MAGNESIUM 1.8 1.8 - 2.4 mg/dL [facility] 01/29/2025 8:50 AM EDT 01/29/2025 8:58 AM EDT Narrative CLINISYNC - 01/29/2025 9:41 AM EDT Generic External Data Provider CLINISYNC F inal Result Performing Organization Address [facility] Co de Phone Number [facility] * (ABNORMAL) ALL CBC WITH AUTO DIFF (01/29/2025 8:50 AM EDT) Only the most recent of3 resultswithin the time period is included. Pathologist [facility] TB WBC 8.5 4.0 - 11.0 10 3/uL TBH TBH RBC 4.85 4.20 - 5.40 10 6/uL TBH TBH HGB 13.9 12.0 - 16.0 g/dL TBH TBH HCT 41.9 36.0 - 48.0 % TBH TBH MCV 86.4 81.0 - 99.0 fL TBH TBH MCH 28.7 26.7 - 34.0 pg TBH TBH MCHC 33.2 29.9 - 35.2 g/dL TBH TBH RDW 14.5 11.0 - 15.0 % TBH TBH PLT 289 150 - 450 10 3/uL TBH TBH MPV 8.6(L) 9.5 - 13.5 fL TBH NEUTROPHILS PERCENT AUTO 70.7 43.0 - 75.0 % TBH LYMPHOCYTES PERCENT AUTO 19.1(L) 20.5 - 60.0 % TBH MONOCYTES PERCENT AUTO 6.4 1.7 - 12.0 % TBH TBH EO % 2.7 0.9 - 7.0 % TBH BASOPHILS PERCENT AUTO 0.7 0.2 - 2.0 % TBH IMMATURE GRANULOCYTES PCT AUTO 0.4 0.0 - 0.5 % TBH NEUTROPHILS ABSOLUTE AUTO 6.0 1.4 - 6.5 10 3/uL TBH LYMPHOCYTES ABSOLUTE AUTO 1.6 1.2 - 3.8 10 3/uL TBH MONOCYTES ABSOLUTE AUTO 0.6 0.3 - 0.8 10 3/uL TBH TBH EO # 0.2 0.0 - 0.7 10 3/uL TBH BASOPHILS ABSOLUTE AUTO 0.1 0.0 - 0.1 10 3/uL TBH IMMATURE GRANULOCYTES ABS AUTO 0.03 0.00 - 0.03 10 3/uL TBH 01/29/2025 8:50 AM EDT 01/29/2025 8:58 AM EDT Narrative CLINISYNC - 01/29/2025 9:05 AM EDT us Generic External Data Provider CLINISYNC F inal Result CLINISYNC [facility] * ALL PHOSPHOROUS (12/30/2024 7:27 AM EDT) Pathologist [facility] PHOSPHORUS 3.8 2.6 - 4.7 mg/dL TB 12/30/2024 7:27 AM EDT 12/30/2024 7:28 AM EDT Narrative CLINISYWV - 12/30/2024 8:46 AM EDT Generic External Data Provider CLINISYNC F inal Result Performing Organization Address [facility] de Phone Number [facility] * BKV QUANT PCR (12/03/2024 7:23 AM EST) [facility] BKV DNA, QUANT PCR, PLASMA Negative Negative IU/mL [facility] Comment: No BK DNA detected. The linear range of the assay is 22 - 100,000,000 IU/mL. Performed at: [address] [id number] Safety Instructor: Jose De Los Santos MD, Phone: [phone] [id number] BKV DNA,PLASMA TNP . [facility] 12/03/2024 7:23 AM EST 12/03/2024 7:25 AM EST Narrative CLINISYWV - 12/06/2024 1:07 PM EST Generic External Data Provider LAB BLOOD ORDERAB LES Final Result Performing Organization Address [facility] de Phone Number [facility] * MLR HEMOGLOBIN A1C (12/03/2024 7:23 AM EST) [facility] GLYCOHEMOGLOBIN A1C 5.0 4.5 - 6.2 % [facility] Comment: ADA RECOMMENDED LIMIT 4.0 - 6.0 ADA THERAPEUTIC TARGET < 7.0 ACTION SUGGESTED > 7.0 ESTIMATED AVERAGE GLUCOSE 97 mg/dL [facility] 12/03/2024 7:23 AM EST 12/03/2024 7:25 AM EST Narrative CLINISYNC - 12/03/2024 8:28 AM EST Generic External Data Provider PERICO [facility]cleod inateresa Result Performing Organization Address [facility] Co de Phone Number CLINISYNC [facility] * (ABNORMAL) ALL LIPID PROFILE (FASTING) (12/03/2024 7:23 AM EST) TRIGLYCERIDES 152(H) <=150 mg/dL TBH CHOLESTEROL 186 <=200 mg/dL TBH HDL CHOLESTEROL 56 40 - 60 mg/dL TB Comment: > or =60 mg/dl - LOW CARDIOVASCULAR RISK <40 mg/dl - HIGH CARDIOVASCULAR RISK LDL CHOLESTEROL CALCULATED 100.0 mg/dL TB Comment: <100 mg/dl OPTIMAL 100-129 mg/dl NEAR OR ABOVE OPTIMAL 130-159 mg/dl BORDERLINE HIGH 160-189 mg/dl HIGH >190 mg/dl VERY HIGH VLDL CHOLESTEROL 30.4 mg/dL TBH CHOL HDL RATIO 3.3 TB Comment: 3.3 - 4.4 LOW RISK 4.4 - 7.1 AVERAGE RISK 7.1 - 11.0 MODERATE RISK >11.0 HIGH RISK 12/03/2024 7:23 AM EST 12/03/2024 7:25 AM EST Narrative CLINISYNC - 12/03/2024 8:28 AM EST Generic External Data Provider PERICO tello Result Performing Organization Address [facility] Co de Phone Number PERICO [facility]H * Bilateral screening mammogram with tomosynthesis (08/25/2024 3:23 PM EST) Anatomical Region Laterality Modality Breast Bilateral Mammography 08/25/2024 3:23 PM EST Impressions 08/25/2024 3:26 PM EST NO MAMMOGRAPHIC EVIDENCE OF MALIGNANCY. ROUTINE FOLLOW-UP [...] Messina Jr., D.OSon08/25/2024 3:24 PM [facility]ictation [facility] Transcribed By: SALMA 08/25/24 1524 Dictated By: Evan Messina Jr, DO 08/25/24 1523 Signed By: <Electronically signed by Evan Messina Jr, DO in OV> 08/25/24 1524 Narrative 08/25/2024 3:26 PM EST [facility] [place] [place] [address] Mammography Report Signed Patient: Patsy Puri MR#: [id number] 15 : 1975 Acct:[id number] Age/Sex: 48 / F ADM Date: 08/25/24 Loc: [place] Room: Type: REG CLI Attending Dr: Blake Hinojosa DO Copies to: Ming Triplett,DO Blake Hinojosa DO Ordering Provider: Blake Hinojosa [...] interval change. MM/MM screening mammo BI w/CAD Procedure Note Radiology, Radiologist, MD - 08/25/2024 [facility] Main [place] [id number] Mammography Report Signed Patient: Patsy Puri LMR#: [id number] 15 : 1975Acct:[id number] Age/Sex: 48 / FADM Date: 08/25/24 Loc: [place] Room:Type: [facility] CLI Attending Dr: Blake Hinojosa DO Copies to: DO Blake Pederson DO Ordering Provider: Blake Hinojosa DO Date of Service: 08/25/24 MM/MM screening mammo BI w/CAD: SCREENING CLINICAL DATA: Screening for malignancy. SCREENING MAMMOGRAM - FULL FIELD DIGITAL WITH TOMOSYNTHESIS AND CAD COMPARISON:Mammograms dating back to 2019 Tomosynthesis craniocaudal and mediolateral oblique views of both breastswere obtained using low- dose digital technique. This examination was reviewed with the aid ofCAD. FINDINGS: The breast tissue is composed of scattered fibroglandular densities.There are no dominant masses, typically malignant calcifications or architectural distortion. There hasbeen no significant interval change. MM/MM screening mammo [...] system with a target due date for thenext mammogram. Impression dictated by: Evan Messina Jr., D.O.08/25/2024 3:24 PM Dictation Location: [facility] Transcribed By: [facility] 08/25/24 1524 Dictated By: Evan Messina Jr, DO 08/25/24 1523 Signed By: <Electronically signed by Evan Messina Jr, DO inOV> 08/25/24 1524 Blake Hinojosa DO IMG BI PROCEDURES Final Resu lt * THINPREP IMAGING PAP W/REFL HPV MRNA E6/E7 (04/19/2024 12:00 AM EDT) CLINICAL INFORMATION [facility] Comment:None given LMP [facility] Comment:[facility] BS 2017 PREV. PAP [facility] Comment:NEG PREV. BX [facility] Comment:None given SOURCE [facility] Comment:None given STATEMENT OF ADEQUACY [facility] Comment:SATISFACTORY FOR KHANG LUATION INTERPRETATION/RESUL T [facility] Comment: Cytology Results: Negative for intraepithelial lesion or malignancy. COMMENT [facility] Comment: This Pap test has been evaluated with computer assisted technology. SPINNING SUPERVISOR [facility] Comment: Reference Range: ZL, CT(ASCP) CT screening location: [facility], [address] [place] [address], [place] [address]. (ALWAYS MESSAGE) [facility] Comment: EXPLANATORY NOTE: The Pap is a screening test for cervical cancer. It is not a diagnostic test and is subject to false negative and false positive results. It is most reliable when a satisfactory sample, regularly obtained, is submitted with relevant clinical findings and history, and when the Pap result is evaluated along with historic and current clinical information. Swab Vaginal structure / Unknown 04/19/2024 04/20/2024 3:47 AM EDT Narrative Resulting Agency Comment Performing Organization Information Site ID: [id number] Name: [facility] Address: [address] [place] [address], [address] [place] [phone] Director: Bran Flowers MD Blake Hinojosa DO LAB CYTOLOGY ORDERABLES Casie l Result Performing Organization Address [facility]/ZIP Co de Phone Number [facility] * (ABNORMAL) POCT glycosylated hemoglobin (Hb A1C) docked device (06/10/2023 4:14 PM EDT) Hemoglobin A1C 6.9 Blood Venous blood specimen / Unknown 06/10/2023 4:14 PM EDT Ming Triplett DO POINT OF CARE TEST ENTER/GILBERTO T ORDERABLES Edited Result - Final * (ABNORMAL) URINE T PROTEIN CREAT RATIO (07/29/2022) PROTEIN, URINE 29.7(HH) <=12.0 [facility] URINE CREAT 53.35 20.00 - 300.00 [facility] UR PROT CREAT RAT 0.56 [facility] PERFORMING LAB: see note [facility] Comment:[facility] - [address] [address] ,Ext. [phone] 07/29/2022 Ming Triplett DO [facility] Final Result [facility] * Colonoscopy (04/01/2022 12:00 PM EDT) Anatomical Region Laterality Modality Endoscopy 04/01/2022 12:0 0 PM EDT Narrative 04/01/2022 12:00 PM EDT PERFORMED AT [facility] LOCATION:[id number] diverticulosis Procedure Note CONVERSION, GENERIC - 02/19/2023 PERFORMED AT [facility] LOCATION:[id number] diverticulosis Ming Triplett DO ENDOSCOPY PROCEDURE ORDERABL ES Final Result from Last 3 Months or Most Recently Relevant to Health Maintenance Insurance [employer] Member Subscriber Plan / Payer (Ef fective 2023-Present) Name:Patsy Puri Relation to Subscriber:Spouse Name:Evan Puri Date of :1970 Address: [address] [place] [address] Payer ID:Not on file Type:Not on file Address: [place] [phone] Care Teams Blocker Metal Base Relationship Specialty Start Date End Date Ming Triplett DO [address] [facility] [address] [place] [address] PCP - Medical [place] [employer] 10/06/21 10/05/99 Ming Triplett DO [address] [facility] [address] [place] [address] PCP - General Internal Medicine 05/02/23
--- OUTSIDE RECORDS SUMMARY | 2025-03-03 07:05 | XMS_ITS | Encounter Summary ---
Author Organization [facility] Address [address] [place] [address] Care Team Providers Care Farm Machine Tender Name Role Phone Ming Triplett DO Unavailable [phone] Ming Triplett DO Primary Care Provider Encounter Details Date Type Department Care Team (Late st Contact Info) Description 08/25/2024 External Result Encounter [facility] External Department Unsolicited Blake Hinojosa, DO [address] [facility] [address] [place] [address] Social History Tobacco Use Types Packs/Day Years [...] 04/06/2025 8:15 AM EDT Office Visit [facility] [address] [place] [address] Ming Triplett DO [address] [place] [address] documented as of this encounter Procedures Procedure Name Priority Date/Time Associated Diagnosis Comments BI MAMMOGRAM SCREENING TOMOSYNTHESIS BILATERAL 08/25/2024 3:23 PM EST documented in this encounter Results * Bilateral screening mammogram with tomosynthesis (08/25/2024 [...] Messina Jr., D.OSon08/25/2024 3:24 PM Dictation Location: [facility] Transcribed By: [facility] 08/25/24 1524 Dictated By: Evan Messina Jr, DO 08/25/24 1523 Signed By: <Electronically signed by Evan Messina Jr, DO in OV> 08/25/24 1524 Narrative 08/25/2024 3:26 PM EST [facility] Main [address] [address] Mammography Report Signed Patient: Patsy Puri MR#: [id number] 15 : 1975 Acct:[id number] Age/Sex: 48 / F ADM Date: 08/25/24 Loc: [place] Room: Type: [facility] Attending Dr: Blake Hinojosa DO Copies [...] Procedure Note Radiology, Radiologist, MD - 08/25/2024 [facility] Main [place] [address] [place] [address] Mammography Report Signed Patient: Patsy Puri LMR#: [id number] 15 : 1975Acct:[id number] Age/Sex: 48 / FADM Date: 08/25/24 Loc: [place] Room:Type: [facility] Attending Dr: Blake Hinojosa DO Copies [...] thenext mammogram. Impression dictated by: Evan Messina Jr. DSonOSon08/25/2024 3:24 PM Dictation Location: [facility] Transcribed By: SALMA 08/25/24 1524 Dictated By: Evan Messina Jr, DO 08/25/24 1523 Signed By: <Electronically signed by Evan Messina Jr, DO inOV> 08/25/24 1524 Blake Hinojosa DO IMG BI PROCEDURES Final Resu lt documented in this encounter Visit Diagnoses Not on filedocumented in this encounter Care Teams Farm Machine Tender Relationship Specialty Start Date End Date Ming Triplett DO [address] [place] [address] PCP - Medical [place] [employer] 10/06/21 10/05/99 Ming Triplett DO [address] [place] [address] PCP - General Internal Medicine 05/02/23 documented as of this encounter
--- OUTSIDE RECORDS SUMMARY | 2025-03-03 07:05 | XMS_ITS | Encounter Summary ---
Author Organization [facility] Address [address] [place] [address] Care Team Providers Care Pattern Changer Name Role Phone Ming Triplett DO Unavailable [phone] Ming Triplett DO Primary Care Provider Encounter Details Date Type Department Care Team (Late st Contact Info) Description 02/17/2023 Abstract [facility] [address] [place] [address] Ming Triplett DO [address] [facility] [address] [facility] [address] [place] [address] Social History Tobacco Use Types Packs/Day Years Used Date Smoking Tobacco: Never Assessed Comments Unknown Sex and Gender Information Value Date Recorded Sex Assigned at Female 03/25/2023 2:02 PM EDT Legal Sex Female 6:37 PM EDT Gender Identity Female 03/25/2023 2:02 PM EDT Sexual Orientation Straight 10/08/2023 9: 32 AM EST documented as of this encounter Plan of Treatment Upcoming Encounters Date Type Department Care Team (Late st Contact Info) Description 04/06/2025 8:15 AM EDT Office Visit [facility] [address] [place] [phone] Ming Triplett DO [address] [place] [address] documented as of this encounter Visit Diagnoses Not on filedocumented in this encounter Care Teams Pattern Changer Relationship Specialty Start Date End Date Ming Triplett DO [address] [place] [address] PCP - Medical [place] [employer] 10/06/21 10/05/99 Ming Triplett DO [address] [place] [address] PCP - General Internal Medicine 05/02/23 documented as of this encounter
--- OUTSIDE RECORDS SUMMARY | 2025-03-03 07:05 | XMS_ITS | Encounter Summary ---
Author Organization [facility] Address [address] [facility] [place] [address] Care Team Providers Care Machine Package Sealer Name Role Phone Ioana Ming Preston DO Unavailable [phone] Ming Triplett DO Primary Care Provider [phone] Encounter Details Date Type Department Care Team (Late st Contact Info) Description 04/06/2024 Orders Only [facility] [address] [facility] [facility] [address] [place] [address] A, Unknown Practice [address] [place], [place] [id number] Social History Tobacco Use Types Packs/Day Years Used Date Smoking Tobacco: Never Smokeless Tobacco: Never Alcohol Use Standard Drinks/Week Comments Never 0 (1 standard drink = 0.6 oz pur e alcohol) Caffeine: occasional tea AUDIT-C Answer Date Recorded Q1: How often do you have a drink containing alcohol? Never 03/23/2024 Q2: How many drinks containi ng alcohol do you have on a typical day when you are drinking? Patient does not drink Q3: How often do you have si x or more drinks on one occasion? Never 03/23/2024 PHQ-2 Answer Date Recorded Patient Health Questionnaire-2 Score 0 10/13/2023 Comments Unknown Sex and Gender Information Value [...] Office Visit [facility] [address] [place] [address] Ming Triplett DO [address] [place] [address] documented as of this encounter Procedures Procedure Name Priority Date/Time Associated Diagnosis Comments URINALYSIS, COMPLETE Routine 04/06/2024 10:49 AM EDT documented in this encounter Results * Urinalysis with microscopic (04/06/2024 10:49 AM EDT) Urine Urine specimen obtained by clean catch procedure / Unknown us Unknown Practice A LAB URINE ORDERABLES Final Re sult documented in this encounter Visit Diagnoses Not on filedocumented in this encounter Care Teams Machine Package Sealer Relationship Specialty Start Date End Date Ming Triplett DO [address] [place] [address] [place] [address] PCP - Medical [place] [employer] 10/06/21 10/05/99 Ming Triplett DO [address] [place] [address] PCP - General Internal Medicine 05/02/23 documented as of this encounter
--- OUTSIDE RECORDS SUMMARY | 2025-03-03 07:05 | XMS_ITS | Encounter Summary ---
Author Organization [facility] Address [address] [place] [address] Care Team Providers Care Contact Center Agent Name Role Phone Ming Triplett DO Unavailable [phone] Ming Triplett DO Primary Care Provider [phone] Encounter Details Date Type Department Care Team (Late st Contact Info) Description 06/13/2023 Orders Only [facility] [address] [facility] [address] [place] [address] A, Unknown Practice [address] [place], [place] [address] Social History Tobacco Use Types Packs/Day Years [...] Office Visit [facility] [address] [facility] [address] [place] [address] Ming Triplett DO [address] [place] [address] documented as of this encounter Procedures Procedure Name Priority Date/Time Associated Diagnosis Comments SCANNED LABS Routine 06/06/2023 10:51 AM EDT documented in this encounter Results * SCANNED LABS (06/06/2023 10:51 AM EDT) us Unknown Practice A LAB CHG PERFORMABLES Final Re sult documented in this encounter Visit Diagnoses Not on filedocumented in this encounter Care Teams Contact Center Agent Relationship Specialty Start Date End Date Ming Triplett DO [address] [facility] [address] [place] [address] PCP - Medical [place] [employer] 10/06/21 10/05/99 Ming Triplett DO [address] [facility] [address] [place] [address] PCP - General Internal Medicine 05/02/23 documented as of this encounter
--- OUTSIDE RECORDS SUMMARY | 2025-03-03 07:05 | XMS_ITS | Encounter Summary ---
Author Organization [facility] Address [address] [place] [address] Care Team Providers Care Director Of Architecture Name Role Phone IoanaHuy peraltalizz Preston DO Unavailable [phone] Ming Triplett DO Primary Care Provider [phone] Encounter Details Date Type Department Care Team (Late st Contact Info) Description 11/01/2024 Orders Only [facility] [address] [facility] [address] [place] [address] Unallocated, Noms Provider, [place] [address] Social History Tobacco Use Types Packs/Day Years [...] IM [address] [place] [address] Ming Triplett DO [address] [place] [address] documented as of this encounter Procedures Procedure Name Priority Date/Time Associated Diagnosis Comments COMPREHENSIVE METABOLIC PANEL Routine 10/30/2024 10:40 AM EST CBC WITH AUTO DIFFERENTIAL Routine 10/30/2024 10:38 AM EST documented in this encounter Results * Comprehensive metabolic panel (10/30/2024 10:40 AM EST) Blood Venous blood specimen / Unknown us Noms Provider Unallocated MD LAB BLOOD ORDERABLE S Final Result * CBC auto differential (10/30/2024 10:38 AM EST) Blood Venous blood specimen / Unknown us Noms Provider Unallocated MD LAB BLOOD ORDERABLE S Final Result documented in this encounter Visit Diagnoses Not on filedocumented in this encounter Care Teams Director Of Architecture Relationship Specialty Start Date End Date Ming Triplett DO [address] [place] [address] PCP - Medical [place] [employer] 10/06/21 10/05/99 Ming Triplett DO [address] [place] [address] PCP - General Internal Medicine 05/02/23 documented as of this encounter
--- OUTSIDE RECORDS SUMMARY | 2025-03-03 07:05 | XMS_ITS | Encounter Summary ---
Author Organization [facility] Address [address] [place] [address] Care Team Providers Care Roving Frame Tender Name Role Phone Ming Triplett DO Unavailable [phone] Ming Triplett DO Primary Care Provider [phone] Encounter Details Date Type Department Care Team (Late st Contact Info) Description 06/10/2023 Orders Only [facility] [address] [facility] [address] [place] [address] A, Unknown Practice [address] [place], [place] [phone] Social History Tobacco Use Types Packs/Day Years [...] Office Visit [facility] [address] [facility] [address] [place], [place] [address] Ming Triplett DO [address] [place] [address] documented as of this encounter Procedures Procedure Name Priority Date/Time Associated Diagnosis Comments SCANNED LABS Routine 06/06/2023 3:55 PM EDT documented in this encounter Results * SCANNED LABS (06/06/2023 3:55 PM EDT) us Unknown Practice A LAB CHG PERFORMABLES Final Re sult documented in this encounter Visit Diagnoses Not on filedocumented in this encounter Care Teams Roving Frame Tender Relationship Specialty Start Date End Date Ming Triplett DO [address] [facility] [address] [place] [address] PCP - Medical [place] [employer] 10/06/21 10/05/99 Ming Triplett DO [address] [facility] [address] [place] [address] PCP - General Internal Medicine 05/02/23 documented as of this encounter
--- OUTSIDE RECORDS SUMMARY | 2025-03-03 07:05 | XMS_ITS | Encounter Summary ---
Author Organization [facility] Address [address] [place] [address] Care Team Providers Care High School Science Teacher Name Role Phone Sita Camp Unavailable Ming Triplett MD Primary Care Provider Patrick Sam MD Unavailable Nelson Davies MD Unavailable Romero Zamarripa CNP Unavailable Reason for Visit * Reason Onset Date Comments Med Refill 11/18/2022 Encounter Details Date Type Department Care Team (Late st Contact Info) Description 11/18/2022 Refill [facility] 4AB Urology [address] [place] [address] Paty Ansari, MAINTENANCE SHOP CLERK [address] [address] [place] [address] Kidney transplanted Social History Tobacco Use Types Packs/Day Years Used Date Smoking Tobacco: Never Smokeless Tobacco: Never Alcohol Use Standard Drinks/Week Comments Not Currently 0 (1 standard drink = 0.6 oz pur e alcohol) PHQ-2 Answer Date Recorded Patient Health Questionnaire-2 Score 0 10/23/2022 Sex and Gender Information Value Date Recorded Sex Assigned at Female 07/13/2022 9:44 AM EDT Gender Identity Female 07/13/2022 9:44 AM EDT Sexual Orientation Choose not to disclose 2021 9:44 AM EDT COVID-19 Exposure Response Date Recorded In the last 10 days, have yo u been in contact with someone who was confirmed or suspected to have Coronavirus/COVID-19? No / Unsure 11/19/2022 7:30 AM EST documented as of this encounter Plan of Treatment Upcoming Encounters Date Type Department Care Team (Late st Contact Info) Description 05/18/2025 1:00 PM EDT Follow-Up [facility] Transplant [address] [place] [address] Ty Concepcion CNP [address] [place], [place] [address] documented as of this encounter Visit Diagnoses Diagnosis Kidney transplanted Kidney replaced by transplant documented in this encounter Care Teams High School Science Teacher Relationship Specialty Start Date End Date Ming Triplett MD [address] PCP - General 07/13/22 Yaneth Camp MD [address] [place] [address] Referring Physician 07/08/22 Patrick Sam MD [facility] [facility] [address] [place] [address] Consulting Physician Urology 07/15/22 Nelson Davies MD [address] [place] [address] Consulting Physician Urology 08/12/22 Romero Zamarripa CNP [address] [place] [address] Nurse Practitioner Urology 12/23/23 documented as of this encounter
--- OUTSIDE RECORDS SUMMARY | 2025-03-03 07:05 | XMS_ITS | Encounter Summary ---
Author Organization [facility] Address [address] [place] [address] Care Team Providers Care Hourly Sign Language Interpreter Name Role Phone Ming Triplett DO Unavailable Ming Triplett DO Primary Care Provider Encounter Details Date Type Department Care Team (Late st Contact Info) Description 02/18/2023 Abstract [facility] [address] [place] [address] Ming Triplett DO [address] [facility] [address] [facility] 230 [place] [address] Social History Tobacco Use Types Packs/Day Years [...] [address] [place] [phone] Ming Triplett DO [address] [place] [address] documented as of this encounter Visit Diagnoses Not on filedocumented in this encounter Care Teams Hourly Sign Language Interpreter Relationship Specialty Start Date End Date Ming Triplett DO [address] [place] [address] PCP - Medical [place] [employer] 10/06/21 10/05/99 Ming Triplett DO [address] [place] [address] PCP - General Internal Medicine 05/02/23 documented as of this encounter
--- OUTSIDE RECORDS SUMMARY | 2025-03-03 07:05 | XMS_ITS | Encounter Summary ---
Author Organization [facility] Address [address] [place] [address] Care Team Providers Care Mud Car Worker Name Role Phone Sita Camp Unavailable Ming Triplett MD Primary Care Provider [phone] Patrick Sam MD Unavailable Nelson Davies MD Unavailable Romero Zamarripa CNP Unavailable [phone] Reason for Visit * Reason Comments Med Refill Encounter Details Date Type Department Care Team (Late st Contact Info) Description 07/17/2023 Refill [facility] [address] [place] [place] [address] Tori Magdaleno MD [address] [facility] [place] [address] Hypokalemia; Aftercare following organ transplant Social History Tobacco Use Types Packs/Day Years Used Date Smoking Tobacco: Never Smokeless Tobacco: Never Alcohol Use Standard Drinks/Week Comments Not Currently 0 (1 standard drink = 0.6 oz pur e alcohol) PHQ-2 Answer Date Recorded Patient Health Questionnaire-2 Score 0 04/16/2023 Sex and Gender Information Value Date Recorded Sex Assigned at Female 07/13/2022 9:44 AM EDT Gender Identity Female 07/13/2022 9:44 AM EDT Sexual Orientation Choose not to disclose 2021 9:44 AM EDT documented as of this encounter Plan of Treatment Upcoming Encounters Date Type Department Care Team (Late st Contact Info) Description 05/18/2025 1:00 PM EDT Follow-Up [facility] Transplant [address] [place] [address] Ty Concepcion CNP [address] [place], [place] [address] documented as of this encounter Visit Diagnoses Diagnosis Hypokalemia Hypopotassemia Aftercare following organ transplant documented in this encounter Care Teams Mud Car Worker Relationship Specialty Start Date End Date Ming Triplett MD [address] PCP - General 07/13/22 Yaneth Camp MD [address] [place] [address] [place] [address] Referring Physician 07/08/22 Patrick Sam MD [facility] [facility] [address] [place] [address] Consulting Physician Urology 07/15/22 Nelson Davies MD [address] [place] [address] Consulting Physician Urology 08/12/22 Romero Zamarripa CNP [address] [place] [address] Nurse Practitioner Urology 12/23/23 documented as of this encounter
--- OUTSIDE RECORDS SUMMARY | 2025-03-03 07:05 | XMS_ITS | Clinical Summary ---
Author Organization [facility] Address [address] [place] [address] Care Team Providers Care Piping Design Specialist Name Role Phone Ming Triplett DO Primary Care Provider + Allergies Active Allergy Reactions Criticality Noted Date Comments Allopurinol Hives 08/02/2019 Medications DULoxetine (CYMBALTA) 60 mg capsule Duloxetine Active 30 MG Oral Daily January 19, 2019 6:40am 4 Active febuxostat (ULORIC) 40 mg tab Febuxostat Active 20 MG Oral Daily August 02, 2019 5:51pm 8 Active ferrous sulfate 325 mg (65 mg iron) EC tablet Take 325 mg by mouth. 9 Active lisinopril (ZESTRIL, PRINIVIL) 20 mg tablet Lisinopril Active 20 MG Oral Daily August 05, 2019 4:31pm 9 Active SODIUM BICARBONATE 0.6 MOLAR 9 Active furosemide (LASIX) 20 mg tablet Take 20 mg by mouth once daily. Active Active Problems Problem Noted Date Diagnosed Date ADPKD (autosomal dominant polycystic kidney dise ase) 03/30/2021 Social History Tobacco Use Types Packs/Day Years Used Date Smoking Tobacco: Never Assessed Area Deprivation Index Answer Date Lizandro rded National Score (1-100), lower number is lower ri sk Not on file 03/30/2021 State Score (1-10), lower number is lower risk N ot on file 03/30/2021 Data from: https://www.neighborhoodatlas.medicine.[facility].edu/. Last address used for calculation Not on file 03/30/2021 Comments Unknown Sex and Gender Information Value Date Recorded Sex Assigned at Not on file Legal Sex Female 8:53 AM EST Gender Identity Not on file Sexual Orientation Not on file Last Filed Vital Signs Vital Sign Reading Time Taken Comments Blood Pressure 122/77 03/30/2021 8:59 AM EDT Pulse 75 03/30/2021 8:59 AM EDT Temperature 36.8 C (98.2 F) 03/30/2021 8:59 AM EDT Respiratory Rate - - Oxygen Saturation - - Inhaled Oxygen Concentration - - Weight 93 kg (205 lb) 03/30/2021 8:59 AM EDT Height 154.9 cm (5' 1 ) 03/30/2021 8:59 AM EDT Body Mass Index 38.73 03/30/2021 8:59 AM EDT Plan of Treatment Health Maintenance Due Date Last Done Comments Anxiety Screening 1993 Depression Screening 1993 HIV Screening 1993 Hepatitis C Screening 1993 DTaP,Tdap,Td Vaccine (1 - Tdap) 1994 Hepatitis B Vaccine (1 of 3 - 19+ 3-dose series) 1994 Cervical Cancer Screening [address] Colonography 2020 Cologuard (FIT-DNA) 2020 Colonoscopy 2020 Colorectal Cancer Screening 2020 Fecal Occult Blood 2020 Lipid Screening 2020 Sigmoidoscopy 2020 Diabetes Screening 08/02/2022 08/02/2019 Covid-19 Vaccine ( season) 2024 Influenza Vaccine (Season Ended) 2025 05/29/20 20, 08/11/2019 Insurance [address] [place] [address] MMO [employer] P[employer] Care Teams Piping Design Specialist Relationship Specialty Start Date End Date Ming Triplett DO [address] [place] [address] PCP - General Internal Medicine 11/07/17
--- OUTSIDE RECORDS SUMMARY | 2025-03-03 07:05 | XMS_ITS | Encounter Summary ---
Author Organization [facility] Address [address] [place] [address] Care Team Providers Care Ophthalmic Asst Name Role Phone Sita Camp Unavailable Ming Triplett MD Primary Care Provider [phone] Patrick Sam MD Unavailable Nelson Davies MD Unavailable Romero Zamarripa CNP Unavailable [phone] Reason for Visit * Reason Comments Med Refill Encounter Details Date Type Department Care Team (Late st Contact Info) Description 09/30/2023 Refill [facility] Transplant [address] [place] [address] Aguila Parrish MD [address] [place] [address] Kidney transplanted Social History Tobacco Use Types Packs/Day Years Used Date Smoking Tobacco: Never Smokeless Tobacco: Never Alcohol Use Standard Drinks/Week Comments Not Currently 0 (1 standard drink = 0.6 oz pur e alcohol) PHQ-2 Answer Date Recorded Patient Health Questionnaire-2 Score 0 09/01/2023 Sex and Gender Information Value Date Recorded Sex Assigned at Female 07/13/2022 9:44 AM EDT Gender Identity Female 07/13/2022 9:44 AM EDT Sexual Orientation Choose not to disclose 2021 9:44 AM EDT documented as of this encounter Plan of Treatment Upcoming Encounters Date Type Department Care Team (Late st Contact Info) Description 05/18/2025 1:00 PM EDT Follow-Up [facility] Transplant [address] [place] [address] Ty Concepcion CNP [address] [place] [phone] documented as of this encounter Visit Diagnoses Diagnosis Kidney transplanted Kidney replaced by transplant documented in this encounter Care Teams Ophthalmic Asst Relationship Specialty Start Date End Date Ming Triplett MD [address] PCP - General 07/13/22 Yaneth Camp MD [address] [place] [address] Referring Physician 07/08/22 Patrick Sam MD [facility] [facility] [address] [place] [address] Consulting Physician Urology 07/15/22 Nelson Davies MD [address] [place] [address] Consulting Physician Urology 08/12/22 Romero Zamarripa CNP [address] [place] [address] Nurse Practitioner Urology 12/23/23 documented as of this encounter
--- OUTSIDE RECORDS SUMMARY | 2025-03-03 07:05 | XMS_ITS ---
Author Organization [facility] Address [address] [address] Care Team Providers Care Pound Keeper Name Role Phone Sita Camp Unavailable Ming Triplett MD Primary Care Provider [phone] Patrick Sam MD Unavailable Nelson Davies MD Unavailable Romero Zamarripa CNP Unavailable [phone] Transplant Episode Kidney Recipient [facility] ([place], [place]) - [facility] Organ Received: Right Kidney Transplanted on 09/20/2022 Marked as Active Follow-up on 09/20/2022 Kidney CoordinatorDanica Deshpande RN Phone: N/A Fax: N/A Email: N/A [place] Organ Diagnosis Organ Primary Contributory Kidney Polycystic Kidneys Infection History Noted Survival Infection Treatment Organism Resolved 05/17/2020 COVID-19 Donor Information Organ ABO Source Meets Risk Criteria HLA Match Mismatches Cross Match Right Kidney Transplanted O DCD No A: 0 B: 2 DR: 1 Right Kidney Donor Serology Results Anti-CMV CMV IgG: Positive HBsAg HBsAg: Negative Anti-HBcAb HBC Total: Negative HBsAb HBsAb: Not Done HBV DNA No results on file Anti-HCV HCV: Negative Anti-HIV I/II HIV-1: Negative Anti-HTLV I/II HTLV: Not Done RPR/VDRL RPR: Negative EBV IgG EBV VCA IgG: Positive EBV IgM EBV VCA IgM: Negative EBNA No results on file Toxoplasma Toxoplasma IgG: Negative SARS CoV-2 SARS CoV-2 RNA: Positive Care Team Name Role Phone Fax Email Danica Deshpande, JACKIE Kidney Coordinator N/A N/A N/A Yaneth Camp MD Referring Physician N/A N/A N/A Ana Smith Txp Superintendent Operating N/A N/A N/A Aguila Parrish MD Surgeon N/A N/A N/A Ashley Rahman Txp Superintendent Operating N/A N/A N/A Blu Martinez MD Website Developer N/A N/A N/A Events Post-Transplant Pre-Transplant Admitted: 09/19/2022 Referred: 10/31/2020 Transplanted: 09/20/2022 Evaluation began: 2 Discharged: 09/23/2022 Committee: 02/25/2022 Center waitlisted: 2
--- OUTSIDE RECORDS SUMMARY | 2025-03-03 07:05 | XMS_ITS | Encounter Summary ---
Author Organization [facility] Address [address] [place] [address] Care Team Providers Care Claim Approver Name Role Phone Ming Triplett DO Unavailable [phone] Ming Triplett DO Primary Care Provider [phone] Encounter Details Date Type Department Care Team (Late st Contact Info) Description 06/11/2023 Orders Only [facility] [address] [facility] [address] [place] [address] A, Unknown Practice [address] [place], [place] [id number] Social History Tobacco Use Types Packs/Day Years [...] [facility] [address] [place] [address] Ming Triplett DO [address] [place] [address] documented as of this encounter Procedures Procedure Name Priority Date/Time Associated Diagnosis Comments DIABETES EYE EXAM Routine 06/10/2023 1:49 PM EDT SCANNED LABS Routine 06/06/2023 9:10 AM EDT documented in this encounter Results * Hm Diabetes Eye Exam (06/10/2023 1:49 PM EDT) us Unknown Practice A HEALTH MAINTENANCE Final Resu lt * SCANNED LABS (06/06/2023 9:10 AM EDT) us Unknown Practice A LAB CHG PERFORMABLES Final Re sult documented in this encounter Visit Diagnoses Not on filedocumented in this encounter Care Teams Claim Approver Relationship Specialty Start Date End Date Ming Triplett DO [address] [place] [address] PCP - Medical [employer] 10/06/21 10/05/99 Ming Triplett DO [address] [place] [address] PCP - General Internal Medicine 05/02/23 documented as of this encounter
--- OUTSIDE RECORDS SUMMARY | 2025-03-03 07:06 | XMS_ITS | Clinical Summary ---
Author Organization [facility] Address [address] [address] Phone Care Team Providers Care Water Quality Analyst Name Role Phone Ming Triplett DO Primary Care Provider [phone] Social History Tobacco Use Types Packs/Day Years Used Date Smoking Tobacco: Never Assessed Comments Unknown Sex and Gender Information Value Date Recorded Sex Assigned at Not on file Legal Sex Female 7:01 PM EST Gender Identity Not on file Sexual Orientation Not on file Plan of Treatment Not on file Care Teams Water Quality Analyst Relationship Specialty Start Date End Date Ming Triplett DO [address] [place] [address] PCP - General 01/06/19
--- OUTSIDE RECORDS SUMMARY | 2025-03-03 07:06 | XMS_ITS | Clinical Summary ---
Author Organization [facility] Address [address] [place] [address] Care Team Providers Care Vest Baster Name Role Phone Ming Triplett Kary NAVA Primary Care Provider [phone] Allergies Active Allergy Reactions Criticality Noted Date Comments Allopurinol 08/02/2019 Medications LISINOPRIL PO Take by mouth Active DULoxetine HCl (CYMBALTA PO) Take by mouth Active Social History Tobacco Use Types Packs/Day Years Used Date Smoking Tobacco: Never Assessed Comments Unknown Sex and Gender Information Value Date Recorded Sex Assigned at Not on file Legal Sex Female 3:34 PM EST Gender Identity Not on file Sexual Orientation Not on file Last Filed Vital Signs Vital Sign Reading Time Taken Comments Blood Pressure 97/56 08/02/2019 4:16 PM EDT Pulse 110 08/02/2019 4:27 PM EDT Temperature 37.4 C (99.3 F) 08/02/2019 4:35 PM EDT Respiratory Rate 14 08/02/2019 4:27 PM EDT Oxygen Saturation 98% 08/02/2019 4:27 PM EDT Inhaled Oxygen Concentration - - Weight 90.7 kg (200 lb) 08/02/2019 2:59 PM EDT Height 154.9 cm (5' 1 ) 08/02/2019 2:59 PM EDT Body Mass Index 37.79 08/02/2019 2:59 PM EDT Plan of Treatment Not on file Insurance [address] [place] [address] [employer] Care Teams Vest Baster Relationship Specialty Start Date End Date Ming Triplett DO [address] [place] [address] PCP - General Internal Medicine 08/02/19
--- OUTSIDE RECORDS SUMMARY | 2025-03-03 07:06 | XMS_ITS | Clinical Summary ---
Author Organization [facility] Address [address] [place] [address] Care Team Providers Care Premium Note Interest Calculator Clerk Name Role Phone Sita Camp Unavailable Ming Triplett MD Primary Care Provider [phone] Patrick Sam MD Unavailable Nelson Davies MD Unavailable Romero Zamarripa CNP Unavailable [phone] Allergies Active Allergy Reactions Criticality Noted Date Comments Allopurinol 07/01/2022 Venlafaxine Hives 09/19/2022 Venlafaxine Hcl 07/10/2021 Other reaction(s): bad side effect Medications Medication Sig Dispensed Refills Start Date End Date Status DULoxetine (Cymbalta) [address] capsule Take 90 mg by mouth in the morning. Active ferrous sulfate 325 (65 Fe) MG tablet Take 65 mg by mouth every other day. Active docusate sodium (Colace) 100 mg capsuleIndications :Drug induced constipation Take 1 capsule (100 mg) by mouth in the morning and at bedtime. 60 capsule 09/23/2022 Active Additional Information Patient not taking.Reported on 11/12/2024 oxyCODONE-acetamin ophen (Percocet) 5-325 mg tabletIndications: Post-op pain Take 1 tablet by mouth every 6 (six) hours if needed for severe pain (8-10 pain score) for up to 20 doses. 20 tablet 09/23/2022 Active amLODIPine (Norvasc) 10 mg tabletIndications: Hypertension, unspecified type Take 1 tablet (10 mg) by mouth in the morning. 30 tablet 11 10/24/2022 Active famotidine (Pepcid) 20 mg tabletIndications: Kidney transplanted Take 1 tablet (20 mg) by mouth in the morning. 30 tablet 2022 Active Additional Information Patient taking differently:20 mg oralAs needed, Reported on 12/25/2022 Envarsus XR 1 mg tablet ERIndications:Kidn ey transplanted TAKE 3 TABLETS BY MOUTH ONCE DAILY IN THE MORNING. TAKE ALONG WITH 0.75 MG TABLETS DIRECTED FOR TOTAL DOSE UP TO 4.5 MG PER DAY. 90 tablet 11 10/01/2023 Active Additional Information Patient taking differently: 1.5 mg oral Daily, Reported on 05/19/2024 semaglutide (Ozempic) 2 mg/dose (8 mg/3 mL) pen injector Inject 2 mg under the skin every 7 (seven) days. Active methenamine hippurate (Hiprex) 1 gram tabletIndications: Recurrent UTI Take 1 tablet (1 g) by mouth two times daily. 60 tablet 11 05/19/2024 5 Active pravastatin (Pravachol) 40 mg tabletIndications: Encounter for aftercare following kidney transplant TAKE 1 TABLET BY MOUTH AT BEDTIME 90 tablet 3 06/28/2024 Active mycophenolate (Myfortic) 180 mg EC tabletIndications: Kidney transplanted Take 2 tablets (360 mg) by mouth two times daily. 180 tablet 11 12/03/2024 Active Envarsus XR 1 mg tablet ERIndications:Kidn ey replaced by transplant TAKE 1 TABLET (1 MG) BY MOUTH IN THE MORNING. SCRIPT TOTAL 1.5 MG DAILy 30 tablet 11 12/08/2024 Active tacrolimus ER (Envarsus XR) 0.75 mg tablet ERIndications:Kidn ey replaced by transplant Take 2 tablets (1.5 mg) by mouth in the morning. Script total 1.5 mg daily 180 tablet 11 12/14/2024 Active potassium chloride CR (Klor-Con M20) 20 mEq ER tabletIndications: Electrolyte disorder Take 1 tablet (20 mEq) by mouth in the morning. Do not crush or chew. 90 tablet 3 02/10/2025 6 Active potassium chloride CR (Klor-Con M10) 10 mEq ER tabletIndications: Electrolyte disorder Take 2 tablets (20 mEq) by mouth in the morning. Do not crush or chew. 180 tablet 3 02/10/2025 Active potassium chloride CR (Klor-Con M10) 10 mEq ER tabletIndications: Hypokalemia Take 3 tablets (30 mEq) by mouth in the morning. Do not crush or chew. 90 tablet 11 02/02/2025 6 Active magnesium oxide (Mag-Ox) 400 mg (241.3 mg magnesium) tabletIndications: History of kidney transplant Take 2 tablets (800 mg) by mouth two times daily. 360 tablet 1 02/02/2025 Active magnesium oxide (Mag-Ox) 400 mg (241.3 mg magnesium) tabletIndications: History of kidney transplant TAKE 2 TABLETS BY MOUTH IN THE MORNING AND 2 TABLETS AT BEDTIME 360 tablet 1 09/24/2024 5 Discontinue d(Reorder) potassium chloride CR (Klor-Con M20) 20 mEq ER tablet Take 20 mEq by mouth in the morning. Do not crush or chew. 5 Discontinue d(Dose adjustment) Active Problems Problem Noted Date Diagnosed Date Hyperglycemia 02/03/2023 Myopathy, unspecified 12/25/2022 Dyslipidemia 12/25/2022 Electrolyte imbalance 12/01/2022 History of gout 12/01/2022 Immunosuppressive management encounter following kidney transplant 10/23/2022 Dysuria 10/23/2022 Hypomagnesemia 10/23/2022 Immunosuppressed status 10/01/2022 Hyperuricemia 10/01/2022 Metabolic acidosis 10/01/2022 Bilateral lower extremity edema 10/01/2022 Hypokalemia 10/01/2022 Encounter for aftercare following kidney transpl ant 09/20/2022 Anxiety 07/01/2022 Depressive disorder 07/01/2022 Gastroesophageal reflux disease 07/01/2022 Gout 07/01/2022 Primary hypertension 07/01/2022 Multiple congenital cysts of kidney 07/01/2022 Stage 4 chronic kidney disease 07/01/2022 COVID-19 05/17/2020 Encounters Date Type Department Care Team Description 02/02/2025 Orders Only [facility] Transplant [address] [place] [address] Paulina Walsh, JACKIE History of kidney transplant 01/31/2025 Refill [facility] Transplant [address] [place] [id number] Vanessa Diaz MA Electrolyte disorder (Primary Dx) 01/30/2025 Refill [facility] Transplant [address] [place] [address] Nelson Davies MD History of kidney transplant 12/15/2024 Refill [facility] Transplant [address] [place] [id number] [place], Tralaina, ACCOUNTS PAYABLE BOOKKEEPER 12/14/2024 Refill [facility] Transplant [address] [place] [phone] [place], Tralaina, ACCOUNTS PAYABLE BOOKKEEPER Kidney replaced by transplant 12/10/2024 Refill [facility] Transplant [address] [place] [address] Alonzo Roxie, ACCOUNTS PAYABLE BOOKKEEPER Kidney replaced by transplant 12/03/2024 Refill [facility] Transplant [address] [place] [address] Priyanka Villanueva MD Kidney replaced by transplant from Last 3 Months Family History Medical History Relation Name Comments Hypertension Brother Polycystic kidney disease Brother Heart disease Father Fibromyalgia Mother Hypertension Sister Polycystic kidney disease Sister Relation Name Status Comments Brother Father Mother Alive Sister Social History Tobacco Use Types Packs/Day Years Used Date Smoking Tobacco: Never Passive Smoke Exposure: Never Smokeless Tobacco: Never Tobacco Cessation:Counseling Given: Not Answered Alcohol Use Standard Drinks/Week Comments Not Currently 0 (1 standard drink = 0.6 oz pur e alcohol) 2-3 a year , wine PHQ-2 Answer Date Recorded Patient Health Questionnaire-2 Score 0 11/12/2024 MD Safety & Environment Answer Date Rec orded Fear of Current or Ex-Partner Not on file Emotionally Abused Not on file 11/27/2023 Physically Abused Not on file 11/27/2023 Sexually Abused Not on file 11/27/2023 Physically or Sexually Abused Not on file Sex and Gender Information Value Date Recorded Sex Assigned at Female 07/13/2022 9:44 AM EDT Gender Identity Female 07/13/2022 9:44 AM EDT Sexual Orientation Choose not to disclose 2021 9:44 AM EDT Last Filed Vital Signs Vital Sign Reading Time Taken Comments Blood Pressure 136/79 11/12/2024 2:29 PM EST Pulse 73 11/12/2024 2:29 PM EST Temperature 36.8 C (98.2 F) 11/12/2024 2:29 PM EST Respiratory Rate 19 11/12/2024 2:29 PM EST Oxygen Saturation 96% 11/12/2024 2:29 PM EST Inhaled Oxygen Concentration - - Weight 82.6 kg (182 lb) 11/12/2024 2:29 PM EST Height 157.5 cm (5' 2 ) 11/12/2024 2:29 PM EST Body Mass Index 33.29 11/12/2024 2:29 PM EST Plan of Treatment Upcoming Encounters Date Type Department Care Team (Late st Contact Info) Description 05/18/2025 1:00 PM EDT Follow-Up [facility] Transplant [address] [place] [id number] Ty Concepcion, VITICULTURIST [address] [place] [address] Health Maintenance Due Date Last Done Comments CT Colonography 1975 FIT-DNA 1975 FIT 1975 FOBT 1975 Sigmoidoscopy 1975 Diabetes: Retinopathy Screening 1985 Diabetes: Urine Protein Screening 1994 Hepatitis B Vaccines (1 of 3 - 19+ 3-dose series) 1994 Zoster Vaccines (1 of 2) 1994 Pap Smear 1996 Adult Tetanus 1997 Cervical Cancer Screening 2005 HPV/Cotest 2005 Pneumococcal Vaccine: Pediatrics (0 to 5 Years) and At-Risk Patients (6 to 64 Years) (2 of 2 - PCV) 01/26/2019 01/26/2018 COVID-19 Vaccine (2 - Ainsley risk series) 11/10/2021 10/13/2021 Diabetes: Hemoglobin A1C 07/24/2024 024, 04/23/2024, 08/26/2023, Additional history exists Depression Screening 11/12/2025 11/12/2024 Mammogram 08/25/2026 08/25/2024, 07/16/2022 Colonoscopy 04/01/2032 04/01/2022 Colorectal Cancer Screening 04/01/2032 Influenza Vaccine Completed 10/01/2024, , 10/19/2023, Additional history exists HIB Vaccines Aged Out No longer eligi ble based on patient's age to complete this topic HPV Vaccines Aged Out No longer eligi ble based on patient's age to complete this topic IPV Vaccines Aged Out No longer eligi ble based on patient's age to complete this topic Meningococcal B Vaccine Aged Out No l onger eligible based on patient's age to complete this topic Meningococcal Vaccine Aged Out No ethan mamie eligible based on patient's age to complete this topic Rotavirus Vaccines Aged Out No longer eligible based on patient's age to complete this topic Medical Devices Explanted Type Area Shaker Repairer Device Identifier Shelf Expiration Date Model / Serial / Lot Stent,Ureteral ,Polarultra,5x 12 - [id number] Implanted:Qty: 1 on 09/20/2022 by Aguila Parrish MD at [facility] Explanted:10/06 (Quantity not on file) Stent N/A: Ureter Grata [id number] 01/16/2024 [id number] Description:Transplant urete r Procedures Procedure Name Priority Date/Time Associated Diagnosis Comments EXT CBC Routine 01/29/2025 EXT COMPREHENSIVE METABOLIC PANEL Routine 01/29/2025 EXT BILIRUBIN, DIRECT Routine 01/29/2025 EXT TACROLIMUS LEVEL Routine 12/30/2024 EXT CBC Routine 12/30/2024 EXT COMPREHENSIVE METABOLIC PANEL Routine 12/30/2024 EXT BILIRUBIN, DIRECT Routine 12/30/2024 EXT MAGNESIUM Routine 12/30/2024 EXT PHOSPHORUS Routine 12/30/2024 EXT HSV NON-SPECIFIC ANTIBODY, IGG Routine 12/30/2024 EXT COMPREHENSIVE METABOLIC PANEL Routine 12/03/2024 7:23 AM EST HEMOGLOBIN A1C Routine 04/23/2024 7:57 AM EDT Impaired fasting glucose from Last 3 Months or Most Recently Relevant to Health Maintenance Results * External CBC (01/29/2025) Only the most recent of2 resultswithin the time period is included. External WBC 8.5 External RBC 4.85 External Hematocrit 42 % External Hemoglobin 13.9 g/dL External Platelets 289 K/uL EXT MCV 86.4 fL EXT MCH 28.7 pg EXT MCHC 33.2 g/dL EXT RDW 14.5 % Blood Venous blood specimen / Unknown 01/29/2025 Historical Provider MD DESIREE CALVILLO RS * External Comprehensive metabolic panel (01/29/2025) Only the most recent of3 resultswithin the time period is included. External Fasting Glucose 118 mg/L External Creatinine, Serum 1.24 mg/mL External BUN 13.0 mg/dL External Potassium 3.4 mmol/L External Sodium, serum 141 mmol/L External CO2, total 27.3 mEq/L External Chloride 104 mmol/L External Calcium 9.9 mg/dL External Albumin 3.8 External Protein, total 7.6 g/dL External Alkaline Phosphatase 89 U/L External ALT 24 U/L External AST 20 U/L External Bilirubin,total 0.5 mg/dL Blood Venous blood specimen / Unknown 01/29/2025 Historical Provider MD DESIREE CALVILLO RS * External Bilirubin, direct (01/29/2025) Only the most recent of2 resultswithin the time period is included. External Bilirubin, Direct 0.1 mg/dL Blood Venous blood specimen / Unknown 01/29/2025 Historical Provider MD RAMÍREZ EXTERNAL ORDE RS * HSV non-specific antibody, IgG (12/30/2024) External Uric acid 4.3 mg/dL Blood Venous blood specimen / Unknown 12/30/2024 Historical Provider MD RAMÍREZ EXTERNAL ORDE RS * External Tacrolimus level (12/30/2024) External Tacrolimus level 4.4 ng/mL Blood Venous blood specimen / Unknown 12/30/2024 Historical Provider MD RAMÍREZ EXTERNAL ORDE RS * External Phosphorus (12/30/2024) External Phosphorus 3.8 Blood Venous blood specimen / Unknown 12/30/2024 Historical Provider MD RAMÍREZ EXTERNAL ORDE RS * External Magnesium (12/30/2024) External Magnesium 2.2 mg/dL Blood Venous blood specimen / Unknown 12/30/2024 Historical Provider MD RAMÍREZ EXTERNAL ORDE RS * Hemoglobin A1c (04/23/2024 7:57 AM EDT) Hemoglobin A1C 5.3 4.0 - 6.0 % 04/23/2024 12:23 PM EDT [facility] ([facility]) Estimated Average Glucose 105 mg/dL 04/23/2024 12:23 PM EDT [facility] ([facility]) Blood Venous blood specimen / Unknown Venipuncture / Unknown 04/23/2024 7:57 AM EDT 04/23/2024 7:57 AM EDT Tori Magdaleno MD LAB BLOOD ORDERABLES [facility] ([facility]) [address] [place] [id number] from Last 3 Months or Most Recently Relevant to Health Maintenance Advance Directives * Full Code (Latest Code Status on File) Date Activated Date Inactivated Comments 09/20/2022 4:39 AM 09/23/2022 5:38 PM * Full Code Date Activated Date Inactivated Comments 09/19/2022 7:04 PM 09/20/2022 4:39 AM * Full Code Date Activated Date Inactivated Comments 09/19/2022 6:18 PM 09/19/2022 6:49 PM Care Teams Premium Note Interest Calculator Clerk Relationship Specialty Start Date End Date Ming Triplett MD [address] PCP - General 07/13/22 Yaneth Camp MD [address] [place] [id number] Referring Physician 07/08/22 Patrick Sam MD [facility] [facility] [place] [address] Consulting Physician Urology 07/15/22 Nelson Davies MD [address] [place] [address] Consulting Physician Urology 08/12/22 Romero Zamarripa CNP [address] [place] [address] Nurse Practitioner Urology 12/23/23
--- OUTSIDE RECORDS SUMMARY | 2025-03-03 07:06 | XMS_ITS | Referral Summary ---
Author Organization [facility] Address [address] [place] [address] Care Team Providers Care Blood Bank Laboratory Technician Name Role Phone Sita Camp Unavailable Ming Triplett MD Primary Care Provider [phone] Patrick Sam MD Unavailable Nelson Davies MD Unavailable Romero Zamarripa CNP Unavailable Encounters Date Type Department Care Team Description 02/02/2025 Orders Only [facility] Transplant [address] [place] [phone] Paulina Walsh RN History of kidney transplant 01/31/2025 Refill [facility] Transplant [address] [place] [phone] Vanessa Diaz MA Electrolyte disorder (Primary Dx) 01/30/2025 Refill [facility] Transplant [address] [place] [phone] Nelson Davies MD History of kidney transplant 12/15/2024 Refill [facility] Transplant [address] [place] [phone] Lina Cox LPN 12/14/2024 Refill [facility] Transplant [address] [place] [phone] Lina Cox LPN Kidney replaced by transplant 12/10/2024 Refill [facility] Transplant [address] [place] [address] Roxie Alonzo LPN Kidney replaced by transplant 12/03/2024 Refill [facility] Transplant [address] [place] [address] Priyanka Villanueva MD Kidney replaced by transplant from Last 3 Months Allergies Active Allergy Reactions Criticality Noted Date [...] crush or chew. 180 tablet 3 02/10/2025 6 Active potassium chloride [...] 4 chronic kidney disease 07/01/2022 COVID-19 05/17/2020 Social History Tobacco Use Types Packs/Day Years Used Date Smoking Tobacco: Never Passive Smoke Exposure: Never Smokeless Tobacco: Never Tobacco Cessation:Counseling Given: Not Answered Alcohol Use Standard Drinks/Week Comments Not Currently 0 (1 standard drink = 0.6 oz pur e alcohol) 2-3 a year , wine PHQ-2 Answer Date Recorded Patient Health Questionnaire-2 Score 0 11/12/2024 [place] Safety & Environment Answer Date Rec orded [...] Description 05/18/2025 1:00 PM EDT Follow-Up [facility] Transplant [address] [place] [address] Ty Concepcion, [employer]CR[employer]ER [address] [place] [address] Medical Devices Explanted Type Area Standpipe Tender Device Identifier Shelf Expiration Date Model / Serial / Lot Stent,Ureteral ,Polarultra,5x 12 - [id number] Implanted:Qty: 1 on 09/20/2022 by Aguila Parrish MD at [facility] Explanted:10/06 (Quantity not on file) Stent N/A: Ureter [employer] [id number] 01/16/2024 [id number] Description:Transplant urete r Procedures Procedure Name Priority [...] / Unknown 01/29/2025 Historical Provider MD DESIREE PACE ORDE RS * External Bilirubin, direct (01/29/2025) Only the most recent of2 resultswithin the time period is included. External Bilirubin, Direct 0.1 mg/dL Blood Venous blood specimen / Unknown 01/29/2025 Historical Provider MD DESIREE PACE ORDE RS * HSV non-specific antibody, IgG [...] specimen / Unknown 12/30/2024 Historical Provider MD DESIREE MURRAYE RS * External Magnesium (12/30/2024) External Magnesium 2.2 mg/dL Blood Venous blood specimen / Unknown 12/30/2024 Historical Provider MD RAMÍREZ EXTERNAL ORDE RS * Hemoglobin A1c (04/23/2024 7:57 AM EDT) Hemoglobin A1C 5.3 4.0 - 6.0 % 04/23/2024 12:23 PM EDT [facility] ([facility]) Estimated Average Glucose 105 mg/dL 04/23/2024 12:23 PM EDT [facility] ([facility]) Blood Venous blood specimen / Unknown Venipuncture / Unknown 04/23/2024 7:57 AM EDT 04/23/2024 7:57 AM EDT Tori Magdaleno MD LAB BLOOD ORDERABLES [facility]) [address] [place], [place] [id number] from Last 3 Months or Most Recently Relevant to Health Maintenance Advance Directives * Full Code (Latest Code Status on File) Date Activated Date Inactivated Comments 09/20/2022 4:39 AM 09/23/2022 5:38 PM * Full Code Date Activated Date Inactivated Comments 09/19/2022 7:04 PM 09/20/2022 4:39 AM * Full Code Date Activated Date Inactivated Comments 09/19/2022 6:18 PM 09/19/2022 6:49 PM Care Teams Blood Bank Laboratory Technician Relationship Specialty Start Date End Date Ming Triplett MD [address] PCP - General 07/13/22 Yaneth Camp MD [address] [place] [address] [place] [address] Referring Physician 07/08/22 Patrick Sam MD [facility] [facility] [address] [place] [phone] Consulting Physician Urology 07/15/22 Nelson Davies MD [address] [place] [address] Consulting Physician Urology 08/12/22 Romero Zamarripa CNP [address] [place] [address] Nurse Practitioner Urology 12/23/23
--- OUTSIDE RECORDS SUMMARY | 2025-03-03 07:06 | XMS_ITS | Encounter Summary ---
Author Organization [facility] Address [address] [place] [address] Care Team Providers Care Machine Biller Name Role Phone Sita Camp Unavailable Ming Triplett MD Primary Care Provider [phone] Patrick Sam MD Unavailable Nelson Davies MD Unavailable Romero Zamarripa CNP Unavailable [phone] Reason for Visit * Reason Comments Med Refill Encounter Details Date Type Department Care Team (Late st Contact Info) Description 09/24/2024 Refill [facility] Transplant [address] [place] [address] Nelson Davies MD [address] [place] [address] History of kidney transplant Social History Tobacco Use Types Packs/Day Years Used Date Smoking Tobacco: Never Passive Smoke Exposure: Never Smokeless Tobacco: Never Alcohol Use Standard Drinks/Week Comments Not Currently 0 (1 standard drink = 0.6 oz pur e alcohol) 2-3 a year , wine PHQ-2 Answer Date Recorded Patient Health Questionnaire-2 Score 0 07/07/2024 [place] Safety & [place] Answer Date Rec orded [...] Info) Description 05/18/2025 1:00 PM EDT Follow-Up [facility] Transplant [address] [place] [phone] Ty Concepcion CNP [address] [place], [place] [phone] documented as of this encounter Visit Diagnoses Diagnosis History of kidney transplant Kidney replaced by transplant documented in this encounter Care Teams Machine Biller Relationship Specialty Start Date End Date Ming Triplett MD [address] PCP - General 07/13/22 Yaneth Camp MD [address] [place] [address] Referring Physician 07/08/22 Patrick Sam MD [facility] [facility] [address] [place] [phone] Consulting Physician Urology 07/15/22 Nelson Davies MD [address] [place] [address] Consulting Physician Urology 08/12/22 Romero Zamarripa CNP [address] [place] [phone] Nurse Practitioner Urology 12/23/23 documented as of this encounter
--- OUTSIDE RECORDS SUMMARY | 2025-03-03 07:07 | XMS_ITS | CCD ---
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..] Unavailable TONI, YANETH Consulting Unavailable DO Alexis [place] Primary Care Provider MD Perri Ceja Attending Provider CECILIA Edwards Attending Provider [phone] Ming Espinoza DO A Unavailable Ming Espinoza DO Primary Care Provider [phone] DO Alexis [place] Primary Care Provider [phone] MD Jesus Ayala Attending Provider [phone] DO Blake Hinojosa Referring Provider Alexis NAVA Ming Primary Care Provider Jesus Ayala MD Attending Provider Blake Hinojosa DO Referring Provider Blake Hinojosa DO Attending Provider [phone] Sujit Monterroso MD Attending Provider Perri Ceja Attending Unavailable Ming Espinoza Primary Care Unavailable Perri Ceja Admitting Unavailable Andreia Edwards Admitting Unavailable Andreia Edwards Attending Unavailable Ming Espinoza Primary Care Unavailable Jesus Ayala Admitting Unavailable Jesus Ayala Attending Unavailable Blake Hinojosa Referring Unavailable Ming Espinoza Primary Care Unavailable Sujit Monterroso Admitting Unavailable Sujit Monterroso Attending Unavailable Ming Espinoza Primary Care Unavailable Blake Hinojosa Admitting Unavailable Blake Hinojosa Attending Unavailable MING ESPINOZA Attending Unavailable MUNIRA PHAN Referring Unavailable BLAKE HINOJOSA Attending Unavailable BLAKE HINOJOSA Referring Unavailable MING ESPINOZA Referring Unavailable BLANCHE HUDSONSSJAZMYN Moctezuma Attending Unavailable BLAKE HINOJOSA Attending Unavailable BLAKE HINOJOSA Attending Unavailable MING ESPINOZA Attending Unavailable MING ESPINOZA Attending Unavailable SREE BLANCHARD Referring Unavailable MUNIRA PHAN Attending Unavailable LO, SREE Attending Unavailable DOLORESSUJIT BRISCOE Referring Unavailable RABETS, SREE Attending Unavailable SAVZYANLEO Attending Unavailable Allergies Allergy Classification Reported Allergen(s) Allergy Type Date of Onset Reaction(s) Facility (20 sources) Allopurinol; Translations: [ALLOPURINOL] Drug Allergy 9 hives, Rash [place], [place] (20 sources) venlafaxine; Translations: [venlafaxine] Drug Allergy 2 Rash, Rash, hives [facility] (20 sources) venlafaxine; Translations: [VENLAFAXINE HCL] Drug Allergy 1 [facility] (1 source) Allopurinol Drug Allergy 4 [facility] Repository Medications Current Medications Medication Drug [...] acid 7540 MG / polyethylene glycol 3350 99913 MG / potassium chloride 1200 MG / sodium ascorbate 91818 MG / sodium chloride 3200 MG Powder for Oral Solution) / 1 (polyethylene glycol 3350 847806 MG / potassium chloride 1000 MG / sodium chloride 2000 MG / sodium sulfate 9000 MG Powder for Oral Solution) } Pack [Plenvu] (1 source) Osmotic Laxative, Vitamin C Start: 02-26-2022 Plenvu 140 GM dose 1 pouch at 4pm, dose 2 pouch A & B at 11pm Orally twice a day for 1 days BIN:[id number] PCN: [id number] GROUP:[id number] ID:[id number] February, Active cephalexin 500 mg oral capsule [...] order) Start: 03-15-2024 take 2 tablets by [facility] in the morning magnesium oxide (Mag-Ox) 400 (240 Mg) MG tablet TAKE 2 TABLETS BY MOUTH IN THE MORNING AND 2 TABLETS AT BEDTIME 06/22/2024 Active methenamine hippurate 1000 mg oral tablet (14 sources) take 1 tablet by mouth twice daily methenamine hippurate (Hiprex) 1 g tablet TAKE 1 TABLET (1 G) BY MOUTH TWO TIMES DAILY. Active Multivitamin (Multiple Vitamins) tablet (4 sources) Start: 03-15-2024 take 1 tablet by mouth once daily Multivitamin (Multiple Vitamins) tablet Active 1 TAB PO Daily March 14, 2024 11:00pm Start: 03-15-2024 [facility] Multivitamin (Multiple Vitamins) tablet Active [...] acid 180 mg delayed release oral tablet (20 sources) Antimetabolite Immunosuppressant take 4 tablets by mouth in the morning mycophenolate (Myfortic) 180 MG EC tablet Take 4 tablets by mouth in the morning and 4 tablets before bedtime. Active microencapsulated potassium chloride 20 meq extended release oral tablet (20 sources) take 1 tablet by mouth once [...] (Ozempic, 1 MG/DOSE,) 4 MG/3ML solution pen-injector (18 sources) Start: 11-01-2024 inject 1 mg by subcutaneous injection every week semaglutide (Ozempic, 1 MG/DOSE,) 4 MG/3ML solution pen-injector Indications: Type 2 diabetes mellitus with other specified complication, without long-term current use of insulin INJECT 1 MG UNDER THE SKIN 1 (ONE) TIME PER WEEK 9 mL 3 11/01/2024 Active Start: 11-01-2024 inject 1 mg by subcu taneous injection [...] PER WEEK 3 mL 3 06/29/2024 Active Semaglutide, 2 MG/DOSE, (Ozempic, 2 MG/DOSE,) 8 MG/3ML solution pen-injector (1 source) Start: 01-03-2025 inject 2 mg by subcutaneous injection every week Semaglutide, 2 MG/DOSE, (Ozempic, 2 MG/DOSE,) 8 MG/3ML solution pen-injector Indications: Type 2 diabetes mellitus with stage 3a chronic kidney disease, without long-term current use of insulin (HCC) (CMS/HCC) Inject 2 mg under the skin 1 (one) time per week 12 mL 1 01/03/2025 Active 3 ml sodium chloride 9 mg/ml [...] 2024 11:00pm tiZANidine 4 mg oral tablet (15 sources) Central alpha-2 Adrenergic Agonist Start: 08-31-2024 [...] Start: 08-02-2019 take 2 tablets by mo [facility] once daily as needed for pain Acetaminophen (Tylenol Extra Strength) 500 mg Tablet Active 1000 MG PO Daily as needed for Muscle Pain August 01, 2019 11:00pm calcitriol 0.92233 mg oral capsule (9 sources) Vitamin D3 [...] IV syringe ciprofloxacin 250 mg oral tablet (12 sources) Quinolone Antimicrobial Start: 11-05-2024 End: 01-03-2025 take 1 tablet by mouth in the morning ciprofloxacin (Cipro) 250 MG tablet Take 250 mg by mouth in the morning and 250 mg before bedtime. 11/05/2024 01/03/2025 Discontinued (Therapy completed) Start: 05-15-2020 End: 04-01-2022 take 1 tablet by mouth every twelve hours Ciprofloxacin Hcl (Cipro) 250 mg tablet Discontinued 250 MG PO Q12H 6 3 May 14, 2020 11:00pm April 01, 2022 6:03am ergocalciferol 1.25 mg oral capsule (9 sources) Provitamin D2 Compound Start: 01-20-2019 End: 08-02-2019 take 1 capsule by mouth every month Ergocalciferol (Vitamin D2) 50,000 unit capsule Discontinued 27246 UNIT PO every month January 19, 2019 [...] Translations: [Chronic renal failure, stage 4 (severe) ([facility])] Chronic Acute and unspecified renal failure [...] disease, stage 4 (severe)] Onset: 2 Resolved: 5 Chronic Complications of surgical procedures or medical [...] Resolved: 2 Chronic Diabetes mellitus with complications (20 sources) Chronic kidney disease due to type 2 diabetes mellitus; Translations: [Type 2 diabetes mellitus with diabetic chronic kidney disease] Onset: 3 03-04-2023 Chronic Disorders of lipid metabolism (20 sources) Dyslipidemia; Translations: [Hyperlipidemia, unspecified] Onset: 3 06-10-2023 Chronic Esophageal disorders (20 sources) Gastroesophageal reflux disease; Translations: [Gastro-esophageal reflux [...] unspecified] 08-04-2019 Episodic Other non-traumatic joint disorders (20 sources) Polyarthropathy; Translations: [Polyarthritis, unspecified] Onset: 3 [...] ovary] Onset: 2 Episodic Residual codes; unclassified (20 sources) Obstructive sleep apnea syndrome; Translations: [Obstructive [...] 03-04-2023 03-15-2024 Episodic Diabetes mellitus without complication (20 sources) Impaired fasting glycemia; Translations: [Impaired fasting glucose] Onset: 03-04-2023 Resolved: 03-13-2023 03-13-2023 Episodic Fluid and electrolyte disorders (3 sources) Acidosis; Translations: [ACIDOSIS] Onset: 12-06-2021 Resolved: 05-02-2022 Episodic Genitourinary symptoms and ill-defined conditions (13 sources) Dysuria; Translations: [Dysuria] Onset: 03-15-2024 01-19-2019 Episodic Other aftercare (20 sources) Transplant follow-up; Translations: [Other long chain beamer (current) drug therapy] Onset: 10-23-2022 06-10-2023 Episodic Other connective tissue disease (20 sources) Fibromyalgia; Translations: [Fibromyalgia] Onset: 03-04-2023 03-04-2023 [...] Value Interpretation Reference Range Facility Orders Onlyon 02-02-2025 Orders Only [id number] Antonio Puri i 1975 F Date Provider Department Center 02/02/2025 [id number] SERRATO None Family History Problem Relation Age of Onset Fibromyalgia Mother Heart disease Father Hypertension Sister Polycystic kidney disease Sister Hypertension Brother Polycystic kidney disease Brother Family Status - Relation Status Age at Mother Alive Father Sister Brother Normal [facility] 36on 01-31-2025 36 Patient called into the office requesting a refill on Potassium. She states she just ran out and isn't sure if we will send in a script or if she should purchase them over the counter. Patient states the 20's are too hard for her to swallow and would like to know if she can do two of the 10's if approved. Both ways are qued up to be sent over upon your approval. [facility] Refillon 01-31-2025 Refill [id number] Antonio Puri i 1975 F Date Provider Department Center 01/31/2025 ANDERSON GOODWIN None Family History Problem Relation Age of Onset Fibromyalgia Mother Heart disease Father Hypertension Sister Polycystic kidney disease Sister Hypertension Brother Polycystic kidney disease Brother Family Status - Relation Status Age at Mother Alive Father Sister Brother Reason for Visit and Comments: Med Refill [[id number]] Med Management [[id number]] [facility] ALL CBC WITH AUTO DIFFon BASOPHILS ABSOLUTE AUTO 0.1 N [facility] Basophils/100 WBC (Bld) 0.7 % 0.2 - 2.0 % [facility] Eosinophils/100 WBC (Bld) 2.7 % 0.9 - 7.0 % [facility] Erythrocyte distribution width (RBC) [Ratio] 14.5 % 11.0 - 15.0 % [facility] Hematocrit (Bld) [Volume fraction] 41.9 % 36.0 - 48.0 % [facility] Hemoglobin (Bld) [Mass/Vol] 13.9 g/dL 12.0 - 16.0 g/dL [facility] IMMATURE GRANULOCYTES ABS AUTO 0.03 [facility] Immature granulocytes/100 WBC (Bld) 0.4 % 0.0 - 0.5 % [facility] Interpretation and review of laboratory results Abnormal [facility] LYMPHOCYTES ABSOLUTE AUTO 1.6 [facility] Lymphocytes/100 WBC (Bld) 19.1 % Low 20.5 - 60.0 % [facility] MCH (RBC) [Entitic mass] 28.7 pg 26.7 - 34.0 pg [facility] MCHC (RBC) [Mass/Vol] 33.2 g/dL 29.9 - 35.2 g/dL [facility] MCV (RBC) [Entitic vol] 86.4 fL 81.0 - 99.0 fL [facility] MONOCYTES ABSOLUTE AUTO 0.6 N [facility] Monocytes/100 WBC (Bld) 6.4 % 1.7 - 12.0 % [facility] NEUTROPHILS ABSOLUTE AUTO 6 [facility] Neutrophils/100 WBC (Bld) 70.7 % 43.0 - 75.0 % [facility] Platelet mean volume (Bld) [Entitic vol] 8.6 fL Low 9.5 - 13.5 fL [facility] TBH EO # 0.2 [facility] TBH PLT 289 [facility] TB RBC 4.85 [facility] TB WBC 8.5 [facility] Documentationon 12-14-2024 Documentation [id number] Antonio Puri i 1975 F Date Provider Department Center 12/14/2024 LuigiANDERSON DEL RIO None Family History Problem Relation Age of Onset Fibromyalgia Mother Heart disease Father Hypertension Sister Polycystic kidney disease Sister Hypertension Brother Polycystic kidney disease Brother Family Status - Relation Status Age at Mother Alive Father Sister Brother Reason for Visit and Comments: Results [95] Normal [facility] ALL CBC WITH AUTO DIFFon BASOPHILS ABSOLUTE AUTO 0 N [facility] Basophils/100 WBC (Bld) 0.6 % 0.2 - 2.0 % [facility] Eosinophils/100 WBC (Bld) 5 % 0.9 - 7.0 % [facility] Erythrocyte distribution width (RBC) [Ratio] 15.1 % High 11.0 - 15.0 % [facility] Hematocrit (Bld) [Volume fraction] 38.9 % 36.0 - 48.0 % [facility] Hemoglobin (Bld) [Mass/Vol] 12.5 g/dL 12.0 - 16.0 g/dL [facility] IMMATURE GRANULOCYTES ABS AUTO 0.04 High [facility] Immature granulocytes/100 WBC (Bld) 0.6 % High 0.0 - 0.5 % [facility] Interpretation and review of laboratory results Abnormal [facility] LYMPHOCYTES ABSOLUTE AUTO 1.1 Low [facility] Lymphocytes/100 WBC (Bld) 17.6 % Low 20.5 - 60.0 % [facility] MCH (RBC) [Entitic mass] 27.8 pg 26.7 - 34.0 pg [facility] MCHC (RBC) [Mass/Vol] 32.1 g/dL 29.9 - 35.2 g/dL [facility] MCV (RBC) [Entitic vol] 86.6 fL 81.0 - 99.0 fL [facility] MONOCYTES ABSOLUTE AUTO 0.4 N [facility] Monocytes/100 WBC (Bld) 5.4 % 1.7 - 12.0 % [facility] NEUTROPHILS ABSOLUTE AUTO 4.6 [facility] Neutrophils/100 WBC (Bld) 70.8 % 43.0 - 75.0 % [facility] Platelet mean volume (Bld) [Entitic vol] 8.7 fL Low 9.5 - 13.5 fL [facility] TBH EO # 0.3 [facility] Healthcare TBH PLT 283 [facility] TBH RBC 4.49 [facility] TB WBC 6.4 [facility] Refillon 11-25-2024 Refill [id number] KhushiAntonio i 1975 F Date Provider Department Center 11/25/2024 [id number] JENKINS TXP None Family History Problem Relation Age of Onset Fibromyalgia Mother Heart disease Father Hypertension Sister Polycystic kidney disease Sister Hypertension Brother Polycystic kidney disease Brother Family Status - Relation Status Age at Mother Alive Father Sister Brother [facility] Follow-Upon 11-12-2024 Follow-Up [id number] KhushiAntonio i 1975 F Date Provider Department Center 11/12/202407418-[id number] BATRES TXP None Family History Problem Relation Age of Onset Fibromyalgia Mother Heart disease Father Hypertension Sister Polycystic kidney disease Sister Hypertension Brother Polycystic kidney disease Brother Family Status - Relation Status Age at Mother Alive Father Sister Brother Level of Service:35222 MA OFFICE/OUTPATIENT ESTABLISHED MOD MDM 30 MIN Reason for Visit and Comments: Kidney Follow-up [] - Pt has reoccurring uti's x7 months. She is going to ID to be checked. She would like a standing lab order for a ua. [facility] Orders Onlyon 10-21-2024 Orders Only [id number] KhushiAntonio clemens 1975 F Date Provider Department Center 10/21/2024 1971-LU STEPHENS TXP None Family History Problem Relation Age of Onset Fibromyalgia Mother Heart disease Father Hypertension Sister Polycystic kidney disease Sister Hypertension Brother Polycystic kidney disease Brother Family Status - Relation Status Age at Mother Father Sister Brother Normal [facility] ALL URINALYSISon 10-14-2024 BILIRUBIN URINE Negative NEGATIVE [facility] BLOOD URINE TRACE-I NEGATIVE [facility] Healthcare Clarity (U) CLEAR CLEAR [facility] Color (U) LT. YELLOW YELLOW [facility] GLUCOSE URINE UA Negative NEGATIVE mg/dL [facility] Interpretation and review of laboratory results Abnormal [facility] Ketones Ql (U) Negative NEGATIVE mg/dL [facility] Leukocyte esterase Test strip Ql (U) LARGE Abnormal NEGATIVE [facility] NITRITE URINE Positive Abnormal NEGATIVE [facility] pH (U) 7.5 [pH] 5.0 - 9.0 [facility] PROTEIN URINE Negative NEG/TRACE mg/dL [facility] SPECIFIC GRAVITY URINE 1.015 1.005 - 1.025 [facility] UROBILINOGEN URINE 0.2 EU/dL 0.2 - 1.0 EU/dL [facility] Urine Cultureon 10-14-2024 Bacteria identified Cx Nom (U) ORGANISM: Escherichia coli (MDRO) (O:ESCCOLMDRO) [place] Count >100,000 Aerobic CODI Charge (NMIC56) - [...] RESISTANT TO ALL B-LACTAM DRUGS. PERFORMED BY: [facility] [address] [place] [address] PATHOLOGIST SOLDER MAKING LABORER DOM MARIEE M.D. Normal [facility] Comment on above: Performed By: #### C UU #### [facility] [address] ALL MAGNESIUMon 10-02-2024 Magnesium [Mass/Vol] 1.8 mg/dL 1.8 - 2 .4 mg/dL [facility] ALL PHOSPHOROUSon 10-02-2024 Phosphate [Mass/Vol] 3.9 mg/dL 2.6 - 4 .7 mg/dL [facility] ALL URIC ACIDon 10-02-2024 Urate [Mass/Vol] 4.2 mg/dL 2.6 - 6.0 mg/dL [facility] CCF CMP (CMP) (FOR REMOTE FH C USE)on 10-02-2024 Albumin [Mass/Vol] 3.3 g/dL Low 3.4 - 5.0 g/dL [facility] ALBUMIN GLOBULIN RATIO 0.8 NO [facility] ALP [Catalytic activity/Vol] 84 U/L 46 - 116 U/L [facility] ALT [Catalytic activity/Vol] 13 U/L Low 14 - 59 U/L [facility] Anion gap [Moles/Vol] 14.6 mmol/L NO [facility] AST [Catalytic activity/Vol] 11 U/L Low 15 - 37 U/L [facility] Bilirubin [Mass/Vol] 0.3 mg/dL 0.2 - 1 .0 mg/dL [facility] Calcium [Mass/Vol] 9.3 mg/dL 8.5 - 10. 1 mg/dL [facility] Chloride [Moles/Vol] 105 mmol/L 98 - 10 7 mmol/L [facility] CO2 [Moles/Vol] 25 mmol/L 21.0 - 32.0 mmol/L [facility] Creatinine [Mass/Vol] 1.37 mg/dL High 0.55 - 1.02 mg/dL [facility] GFR/1.73 sq M.predicted CKD-EPI (S/P/Bld) [Vol rate/Area] 50 Low >=60 mL/min/1.73m 2 [facility] Globulin (S) [Mass/Vol] 4.2 g/dL N [facility] Glucose [Mass/Vol] 102 mg/dL 74 - 106 mg/dL [facility] Interpretation and review of laboratory results Abnormal [facility] Potassium [Moles/Vol] 3.6 mmol/L 3.5 - 5.1 mmol/L [facility] Protein [Mass/Vol] 7.5 g/dL 6.4 - 8.2 g/dL [facility] Sodium [Moles/Vol] 141 mmol/L 136 - 145 mmol/L [facility] TBH EGFR-NON AF TOGOLESE 41 Low >=60 mL/min/1.73m 2 [facility] Urea nitrogen [Mass/Vol] 17 mg/dL 7.0 - 18.0 mg/dL [facility] Urea nitrogen/Creatinine [Mass ratio] 12.4 mg/mg [facility] METRO BILIRUBIN, DIRECTon Bilirubin.indirect [Mass/Vol] 0.1 mg/dL 0.0 - 0.2 mg/dL [facility] No Panel Informationon 10-02 [facility] ALL CBC WITH AUTO DIFFon BASOPHILS ABSOLUTE AUTO 0 N [facility] Basophils/100 WBC (Bld) 0.3 % 0.2 - 2.0 % [facility] Eosinophils/100 WBC (Bld) 2.8 % 0.9 - 7.0 % [facility] Erythrocyte distribution width (RBC) [Ratio] 14.5 % 11.0 - 15.0 % [facility] Hematocrit (Bld) [Volume fraction] 34.4 % Low 36.0 - 48.0 % [facility] Hemoglobin (Bld) [Mass/Vol] 10.9 g/dL Low 12.0 - 16.0 g/dL [facility] IMMATURE GRANULOCYTES ABS AUTO 0.03 [facility] Immature granulocytes/100 WBC (Bld) 0.4 % 0.0 - 0.5 % [facility] Interpretation and review of laboratory results Abnormal [facility] LYMPHOCYTES ABSOLUTE AUTO 1.2 [facility] Lymphocytes/100 WBC (Bld) 15.4 % Low 20.5 - 60.0 % [facility] MCH (RBC) [Entitic mass] 27.5 pg 26.7 - 34.0 pg [facility] MCHC (RBC) [Mass/Vol] 31.7 g/dL 29.9 - 35.2 g/dL [facility] MCV (RBC) [Entitic vol] 86.9 fL 81.0 - 99.0 fL [facility] MONOCYTES ABSOLUTE AUTO 0.5 N [facility] Monocytes/100 WBC (Bld) 6.2 % 1.7 - 12.0 % [facility] NEUTROPHILS ABSOLUTE AUTO 5.7 [facility] Neutrophils/100 WBC (Bld) 74.9 % 43.0 - 75.0 % [facility] Platelet mean volume (Bld) [Entitic vol] 8.5 fL Low 9.5 - 13.5 fL [facility] TBH EO # 0.2 [facility] TBH PLT 337 [facility] RBC 3.96 Low [facility] WBC 7.6 [facility] ALL LIPID PROFILE (FASTING)o n 08-31-2024 CHOL HDL RATIO 3.6 [facility] Comment on above: 3.3 - 4.4 LOW RISK 4.4 - 7.1 AVERAGE RISK 7.1 - 11.0 MODERATE RISK >11.0 HIGH RISK Cholesterol [Mass/Vol] 175 mg/dL NINF - 200 mg/dL [facility] Cholesterol in HDL [Mass/Vol] 49 mg/dL 40 - 60 mg/dL [facility] Comment on above: > or =60 mg/dl - LOW CARDIOVASCULAR RISK <40 mg/dl - HIGH CARDIOVASCULAR RISK Magnesium [Mass/Vol] 99.6 mg/dL [facility] Comment on above: <100 mg/dl OPTIMAL 100-129 mg/dl NEAR OR ABOVE OPTIMAL 130-159 mg/dl BORDERLINE HIGH 160-189 mg/dl HIGH >190 mg/dl VERY HIGH Magnesium [Mass/Vol] 26.4 mg/dL [facility] Triglyceride [Mass/Vol] 132 mg/dL NINF - 150 mg/dL [facility] ALL MAGNESIUMon 08-31-2024 Magnesium [Mass/Vol] 1.9 mg/dL 1.8 - 2 .4 mg/dL [facility] ALL PHOSPHOROUSon 08-31-2024 Phosphate [Mass/Vol] 3.7 mg/dL 2.6 - 4 .7 mg/dL [facility] ALL URIC ACIDon 08-31-2024 Urate [Mass/Vol] 4 mg/dL 2.6 - 6.0 mg/dL [facility] CMP (CMP) (FOR REMOTE FH C USE)on 08-31-2024 Albumin [Mass/Vol] 3.4 g/dL 3.4 - 5.0 g/dL [facility] ALBUMIN GLOBULIN RATIO 0.8 NO [facility] ALP [Catalytic activity/Vol] 86 U/L 46 - 116 U/L [facility] ALT [Catalytic activity/Vol] 19 U/L 14 - 59 U/L [facility] Anion gap [Moles/Vol] 17.2 mmol/L NO [facility] AST [Catalytic activity/Vol] 11 U/L Low 15 - 37 U/L [facility] Bilirubin [Mass/Vol] 0.4 mg/dL 0.2 - 1 .0 mg/dL [facility] Calcium [Mass/Vol] 9.3 mg/dL 8.5 - 10. 1 mg/dL [facility] Chloride [Moles/Vol] 104 mmol/L 98 - 10 7 mmol/L [facility] CO2 [Moles/Vol] 24.6 mmol/L 21.0 - 32.0 mmol/L [facility] Creatinine [Mass/Vol] 1.34 mg/dL High 0.55 - 1.02 mg/dL [facility] GFR/1.73 sq M.predicted CKD-EPI (S/P/Bld) [Vol rate/Area] 51 Low >=60 mL/min/1.73m 2 [facility] Globulin (S) [Mass/Vol] 4.2 g/dL N [facility] Glucose [Mass/Vol] 98 mg/dL 74 - 106 mg/dL [facility] Interpretation and review of laboratory results Abnormal [facility] Potassium [Moles/Vol] 3.8 mmol/L 3.5 - 5.1 mmol/L [facility] Protein [Mass/Vol] 7.6 g/dL 6.4 - 8.2 g/dL [facility] Sodium [Moles/Vol] 142 mmol/L 136 - 145 mmol/L [facility] TBH EGFR-NON AF TOGOLESE 42 Low >=60 mL/min/1.73m 2 [facility] Urea nitrogen [Mass/Vol] 16 mg/dL 7.0 - 18.0 mg/dL [facility] Urea nitrogen/Creatinine [Mass ratio] 11.9 mg/mg [facility] METRO BILIRUBIN, DIRECTon Bilirubin.indirect [Mass/Vol] 0.1 mg/dL 0.0 - 0.2 mg/dL [facility] MLR HEMOGLOBIN A1Con 024 Glucose [Mass/Vol] 103 mg/dL [facility] HbA1c (Bld) [Mass fraction] 5.2 % 4.5 - 6.2 % [facility] Comment on above: ADA RECOMMENDED LIMI T 4.0 - 6.0 ADA THERAPEUTIC TARGET < 7.0 ACTION SUGGESTED > 7.[facility] MM screening mammo BI w/CADo n 08-25-2024 MM screening mammo BI w/CAD [facility] [place] [address] Mammography Report Signed Patient: Mandeep Puri MR#: [id number] 15 : 1975 Acct:[id number] Age/Sex: 48 / F ADM Date: 08/25/24 Loc: [place] Room: Type: [facility] Attending Dr: Blake Hinojosa DO Copies to: [...] Messina Jr., D.O.08/25/2024 3:24 PM Dictation Location: [facility] Transcribed By: SALMA 08/25/24 1524 Dictated By: Evan Messina Jr, DO 08/25/24 1523 Signed By: 08/25/24 1524 Normal [facility] Mammography reportOrdered By : Evan Messina on 08-25-2024 Diagnostic imaging study [facility] [place] [address] [place] [address] Mammography Report Signed Patient: Mandeep Puri MR#: [id number] : 1975 Acct:[id number] Age/Sex: 48 / F ADM Date: 4 Loc: [place] Room: Type: [facility] Attending Dr: Blake Hinojosa DO Copies to: Ming Espinoza,DO Blake Hinojosa DO~ Ordering Provider: Blake Hinojosa DO Date [...] Messina Jr., D.O.08/25/2024 3:24 PM Dictation Location: [facility] Transcribed By: [facility] 08/25/241523 Dictated By: Evan Messina Jr, DO 08/25/24 152 Signed By: 08/25/24 152 [facility] [place] 125on 08-03-2024 CANCER ANTIGEN 125 12.9 0.0 - 38.1 [facility] Comment on above: [facility] El ectrochemiluminescence Immunoassay (ECLIA) Values obtained with different assay methods or kits cannot be used interchangeably. Results cannot be interpreted as absolute evidence of the presence or absence of malignant disease. Performed at: [address] [id number] [employer] Machine Operator: Gabriel Whitman PhD, Phone: [phone] [facility] 24 hour urine albumin/total protein ratio by electrophoresisOrdered By: Jesus yAala on 08-02-2024 Albumin Elph (24H U) [Mass fraction] Albumin/Protein.total in 24 hour Urine by Electrophoresis . [facility] 24 hour urine gamma globulin /total protein ratio by electrophoresisOrdered By: Jesus Ayala on 08-02-2024 Gamma globulin Elph (24H U) [Mass fraction] Gamma globulin/Protein.total in 24 hour Urine by Electrophoresis . [facility] 24 hour urine protein monocl onal/total protein by electrophoresisOrdered By: Jesus Ayala on 08-02-2024 Protein.monoclonal Elph (24H U) [Mass fraction] Protein.monoclonal/Prote in.total in 24 hour Urine by Electrophoresis Not Observed [facility] Alanine aminotransferase [En zymatic activity/volume] in Serum or PlasmaOrdered By: Jesus Ayala on 08-02-2024 ALT [Catalytic activity/Vol] 11 U/L Normal 7-52 [facility] Comment on above: Performed By: #### U PE RAND, CAMILLA,URINE, ALDOLASE, SPE, CAMILLA SERUM #### [facility] , #### ADDONUAPLUS, T4F, ESR, CMP, CK, CBC, CRP, TSH3 #### [address] ALT [Catalytic activity/Vol] Alanine aminotransferase [Enzymatic activity/volume] in Serum or Plasma [facility] Albumin [Mass/volume] in Ser um or Plasma by Bromocresol green (BCG) dye binding methoOrdered By: Jesus Ayala on 08-02-2024 Albumin BCG dye [Mass/Vol] 4.3 g/dL 3.5-5.7 [facility] Albumin BCG dye [Mass/Vol] Albumin [Mass/volume] in Serum or Plasma by Bromocresol green (BCG) dye binding metho 3.5-5.7 [facility] Aldolaseon 08-02-2024 Aldolase 3.5 U/L Normal 3.3-10.3 [facility] Comment on above: Result Comment: Perf ormed at: CB - [facility] [address] [id number] [employer] Operator: Gabriel Whitman PhD, Phone: [phone] PERFORMED BY: [facility] [address] [place] [address] PATHOLOGIST SOLDER MAKING LABORER ANAHY MCKEE M.D. Performed By: #### U PE RAND, CAMILLA,URINE, ALDOLASE, SPE, CAMILLA SERUM ####[facility] ,#### ADDONUAPLUS, T4F, ESR, CMP, CK, CBC, CRP, TSH3 ####[facility] Alkaline phosphatase [Enzyma tic activity/volume] in Serum or PlasmaOrdered By: Jesus Ayala on 08-02-2024 ALP [Catalytic activity/Vol] 87 U/L Normal 34 [facility] Comment on above: Performed By: #### U PE RAND, CAMILLA,URINE, ALDOLASE, SPE, CAMILLA SERUM #### [facility] , #### ADDONUAPLUS, T4F, ESR, CMP, CK, CBC, CRP, TSH3 #### [facility] [address] ALP [Catalytic activity/Vol] Alkaline phosphatase [Enzymatic activity/volume] in Serum or Plasma 34 [facility] Appearance of UrineOrdered B y: Jesus Ayala on 08-02-2024 Appearance (U) Urine appearance Clear [facility] Aspartate aminotransferase [ Enzymatic activity/volume] in Serum or PlasmaOrdered By: Jesus Ayala on 08-02-2024 AST [Catalytic activity/Vol] 13 U/L Normal 13-39 [facility] Comment on above: Performed By: #### U PE RAND, CAMILLA,URINE, ALDOLASE, SPE, CAMILLA SERUM #### [facility] , #### ADDONUAPLUS, T4F, ESR, CMP, CK, CBC, CRP, TSH3 #### [facility] [address] AST [Catalytic activity/Vol] Aspartate aminotransferase [Enzymatic activity/volume] in Serum or Plasma [facility] Automated basophil %Ordered By: Jesus Ayala on 08-02-2024 Basophils/100 WBC (Bld) 0.6 % Normal . [facility] Comment on above: Performed By: #### U PE RAND, CAMILLA,URINE, ALDOLASE, SPE, CAMILLA SERUM ####[facility] ,#### ADDONUAPLUS, T4F, ESR, CMP, CK, CBC, CRP, TSH3 ####[facility] [id number] Automated basophil countOrde red By: Jesus Ayala on 08-02-2024 Basophils (Bld) [#/Vol] 0.0 10*3/uL Normal 0.0-0.2 [facility] Comment on above: Performed By: #### U PE RAND, CAMILLA,URINE, ALDOLASE, SPE, CAMILLA SERUM ####[facility] ,#### ADDONUAPLUS, T4F, ESR, CMP, CK, CBC, CRP, TSH3 ####[facility] [id number] Automated blood monocyte cou ntOrdered By: Jesus Ayala on 08-02-2024 Monocytes (Bld) [#/Vol] 0.4 10*3/uL Normal 0.0-0.8 [facility] Comment on above: Performed By: #### U PE RAND, CAMILLA,URINE, ALDOLASE, SPE, CAMILLA SERUM ####[facility] ,#### ADDONUAPLUS, T4F, ESR, CMP, CK, CBC, CRP, TSH3 ####[place] [id number] [address] Automated eosinophil %Ordere d By: Jesus Ayala on 08-02-2024 Eosinophils/100 WBC (Bld) 3.0 % Normal . [facility] Comment on above: Performed By: #### U PE RAND, CAMILLA,URINE, ALDOLASE, SPE, CAMILLA SERUM ####[facility] ,#### ADDONUAPLUS, T4F, ESR, CMP, CK, CBC, CRP, TSH3 ####[place] [id number] Automated eosinophil countOr dered By: Jesus Ayala on 08-02-2024 Eosinophils (Bld) [#/Vol] 0.2 10*3/uL Normal 0.0-0.45 [facility] Comment on above: Performed By: #### U PE RAND, CAMILLA,URINE, ALDOLASE, SPE, CAMILLA SERUM ####[facility] ,#### ADDONUAPLUS, T4F, ESR, CMP, CK, CBC, CRP, TSH3 ####[address] Automated epithelial cells c ount in urine sediment (number/area)Ordered By: Jesus Ayala on 08-02-2024 Epithelial cells Auto (Urine sed) [#/Area] 5-9 [HPF] High 0-2 [facility] Epithelial cells Auto (Urine sed) [#/Area] Automated epithelial cells count in urine sediment (number/area) High 0-2 [facility] Automated erythrocytes count in urine sediment (number/area)Ordered By: Jesus Ayala on 08-02-2024 RBC Auto (Urine sed) [#/Area] Erythrocytes [#/area] in Urine sediment by Automated count 0-4 [facility] Automated leukocytes count i n urine sediment (number/area)Ordered By: Jesus Ayala on 08-02-2024 WBC Auto (Urine sed) [#/Area] Leukocytes [#/area] in Urine sediment by Automated count 0-4 [facility] Automated monocyte %Ordered By: Jesus Ayala on 08-02-2024 Monocytes/100 WBC (Bld) 4.5 % Normal . [facility] Comment on above: Performed By: #### U PE RAND, CAMILLA,URINE, ALDOLASE, SPE, CAMILLA SERUM ####[facility] ,#### ADDONUAPLUS, T4F, ESR, CMP, CK, CBC, CRP, TSH3 ####[facility] [id number] Automated neutrophil %Ordere d By: Jesus Ayala on 08-02-2024 Neutrophils/100 WBC (Bld) 76.9 % Normal . [facility] Comment on above: Performed By: #### U PE RAND, CAMILLA,URINE, ALDOLASE, SPE, CAMILLA SERUM ####[facility] ,#### ADDONUAPLUS, T4F, ESR, CMP, CK, CBC, CRP, TSH3 ####[facility] [place] [address] Bacteria [Presence] in Urine by AutomatedOrdered By: Jesus Ayala on 08-02-2024 Bacteria Auto Ql (U) None seen [HPF] None Seen [facility] Basophils Auto (Bld) [#/Vol] Ordered By: Jesus Ayala on 08-02-2024 Basophils (Bld) [#/Vol] Automated basophil count 0.0-0.2 [facility] Basophils/100 WBC Auto (Bld) Ordered By: Jesus Ayala on 08-02-2024 Basophils/100 WBC (Bld) Automated basophil % . [facility] Bilirubin Test strip Ql (U)O rdered By: Jesus Ayala on 08-02-2024 Bilirubin Ql (U) Negative Negative [facility] Bilirubin Ql (U) Bilirubin.total [Presence] in Urine by Test strip Negative [facility] Bilirubin.total [Mass/volume ] in Serum or PlasmaOrdered By: Jesus Ayala on 08-02-2024 Bilirubin [Mass/Vol] 0.3 mg/dL Normal 0.3-1.0 [facility] Comment on above: Performed By: #### U PE RAND, CAMILLA,URINE, ALDOLASE, SPE, CAMILLA SERUM #### [facility] , #### ADDONUAPLUS, T4F, ESR, CMP, CK, CBC, CRP, TSH3 #### [facility] [address] Bilirubin [Mass/Vol] Bilirubin.total [Mass/volume] in Serum or Plasma 0.3-1.0 [facility] C reactive protein [Mass/vol ume] in Serum or PlasmaOrdered By: Jesus Gruberrow on 08-02-2024 CRP [Mass/Vol] 1.7 mg/dL High 0.0-0.5 [facility] CRP [Mass/Vol] C reactive protein [Mass/volume] in Serum or Plasma High 0.0-0.5 [facility] C-Reactive Proteinon 024 C-Reactive Protein 1.7 mg/dL High 0.0-0.5 [facility] Comment on above: Performed By: #### U PE RAND, CAMILLA,URINE, ALDOLASE, SPE, CAMILLA SERUM #### [facility] , #### ADDONUAPLUS, T4F, ESR, CMP, CK, CBC, CRP, TSH3 #### [facility] [address] CARCINOEMBRYONIC ANTIGENon 1 [facility] CEA ser/plasOrdered By: Gustavo Hinojosa on 08-02-2024 Carcinoembryonic Ag [Mass/Vol] Serum or plasma carcinoembryonic antigen measurement (mass/volume) 0.0-3.0 [facility] Comment on above: Serial tumor marker results determined by assays using different manufacturers or methods may not be comparable.[facility] pneumatic tube operator and method:RUSSELL UNICEL DXI, 2 SITE IMMUNOENZYMATIC SANDWICH ASSAY. Calcium [Mass/volume] in Ser um or PlasmaOrdered By: Jesus Ayala on 08-02-2024 Calcium [Mass/Vol] 9.8 mg/dL Normal 8.6-10.3 [facility] Comment on above: Performed By: #### U PE RAND, CAMILLA,URINE, ALDOLASE, SPE, CAMILLA SERUM #### [facility] , #### ADDONUAPLUS, T4F, ESR, CMP, CK, CBC, CRP, TSH3 #### [facility] [address] Calcium [Mass/Vol] Calcium [Mass/volume ] in Serum or Plasma 8.6-10.3 [facility] Cancer Antigen 125on 024 Cancer Antigen 125 12.9 Normal 0.0-38.1 [facility] Comment on above: Result Comment: [facility] Electrochemiluminescence Immunoassay (ECLIA) Values obtained with different assay methods or kits cannot be used interchangeably. Results cannot be interpreted as absolute evidence of the presence or absence of malignant disease. Performed at: [facility] [address] [id number] [employer] Operator: Gabriel Whitman PhD, Phone: [phone] PERFORMED BY: [place] [address] PATHOLOGIST SOLDER MAKING LABORER ANAHY MCKEE M.D. Performed By: #### C A125 ####[facility] ,#### CEA ####[address] Carbon dioxide, total [Moles /volume] in Serum or PlasmaOrdered By: Jesus Ayala on 08-02-2024 CO2 [Moles/Vol] 24.6 mmol/L Normal 21.0-31.0 [facility] Comment on above: Performed By: #### U PE RAND, CAMILLA,URINE, ALDOLASE, SPE, CAMILLA SERUM #### [facility] , #### ADDONUAPLUS, T4F, ESR, CMP, CK, CBC, CRP, TSH3 #### [facility] [address] CO2 [Moles/Vol] Carbon dioxide, tota l [Moles/volume] in Serum or Plasma 21.0-31.0 [facility] Chloride [Moles/volume] in S aislinn or PlasmaOrdered By: Jesus Gruberrow on 08-02-2024 Chloride [Moles/Vol] 105 mmol/L Normal 98-[address] [place] [address] Comment on above: Performed By: #### U PE RAND, CAMILLA,URINE, ALDOLASE, SPE, CAMILLA SERUM #### [facility] , #### ADDONUAPLUS, T4F, ESR, CMP, CK, CBC, CRP, TSH3 #### [facility] [address] Chloride [Moles/Vol] Chloride [Moles/vol ume] in Serum or Plasma 98-107 [facility] Color Auto (U)Ordered By: Chan morrismaribel Ayala on 08-02-2024 Color (U) Color of Urine by Auto Yellow [facility] Color of Urine by AutoOrdere d By: Jesus Jamie on 08-02-2024 Color (U) Light-yellow Normal Yellow [facility] Comment on above: Order Comment: Name Collection Type:: Clean-Voided Midstream Performed By: #### U PE RAND, CAMILLA,URINE, ALDOLASE, SPE, CAMILLA SERUM #### [facility] , #### ADDONUAPLUS, T4F, ESR, CMP, CK, CBC, CRP, TSH3 #### [facility] [address] Complete Blood Count Auto Di ffon 08-02-2024 Mean Corpuscular HGB Conc 33.5 g/dL Normal 32.0-35.0 [facility] Comment on above: Performed By: #### U PE RAND, CAMILLA,URINE, ALDOLASE, SPE, CAMILLA SERUM ####[facility] ,#### ADDONUAPLUS, T4F, ESR, CMP, CK, CBC, CRP, TSH3 ####[facility] [id number] NRBC% 0.1 /100{WBC} Normal 0-0.5 [facility] Comment on above: Performed By: #### U PE RAND, CAMILLA,URINE, ALDOLASE, SPE, CAMILLA SERUM ####[facility] ,#### ADDONUAPLUS, T4F, ESR, CMP, CK, CBC, CRP, TSH3 ####[facility] [id number] [address] Comprehensive Metabolic Pane jonathan 08-02-2024 Albumin [Mass/Vol] 4.3 g/dL Normal 3.5-5.7 [facility] Comment on above: Performed By: #### U PE RAND, CAMILLA,URINE, ALDOLASE, SPE, CAMILLA SERUM #### [facility] , #### ADDONUAPLUS, T4F, ESR, CMP, CK, CBC, CRP, TSH3 #### [facility] [address] GFR/1.73 sq M.predicted MDRD (S/P/Bld) [Vol rate/Area] mL/min/{1.73_m2} Normal [facility] Comment on above: Performed By: #### U PE RAND, CAMILLA,URINE, ALDOLASE, SPE, CAMILLA SERUM #### [facility] , #### ADDONUAPLUS, T4F, ESR, CMP, CK, CBC, CRP, TSH3 #### [facility] [address] Creatine kinase [Enzymatic a ctivity/volume] in Serum or PlasmaOrdered By: Jesus Ayala on 08-02-2024 CK [Catalytic activity/Vol] 39 U/L Normal 30-223 [facility] Comment on above: Result Comment: PERF ORMED BY: [place] [address] PATHOLOGIST SOLDER MAKING LABORER ANAHY MCKEE M.D. Performed By: #### U PE RAND, CAMILLA,URINE, ALDOLASE, SPE, CAMILLA SERUM #### [facility] , #### ADDONUAPLUS, T4F, ESR, CMP, CK, CBC, CRP, TSH3 #### [facility] [address] [place] [address] CK [Catalytic activity/Vol] Creatine kinase [Enzymatic activity/volume] in Serum or Plasma 30-223 [facility] Creatinine [Mass/volume] in Serum or PlasmaOrdered By: Jesus Ayala on 08-02-2024 Creatinine [Mass/Vol] 1.10 mg/dL Normal 0.60-1.20 [facility] Comment on above: Performed By: #### U PE RAND, CAMILLA,URINE, ALDOLASE, SPE, CAMILLA SERUM #### [facility] , #### ADDONUAPLUS, T4F, ESR, CMP, CK, CBC, CRP, TSH3 #### [address] Creatinine [Mass/Vol] Creatinine [Mass/v olume] in Serum or Plasma 0.60-1.20 [facility] Dipstick and Microscopicon 1 Bacteria,Urine None Seen Normal None Seen [facility] Comment on above: Order Comment: Name Collection Type:: Clean-Voided Midstream Performed By: #### U PE RAND, CAMILLA,URINE, ALDOLASE, SPE, CAMILLA SERUM #### [facility] , #### ADDONUAPLUS, T4F, ESR, CMP, CK, CBC, CRP, TSH3 #### [facility] [address] [place] [address] Bilirubin,Urine Negative Normal Negative [facility] Comment on above: Order Comment: Name Collection Type:: Clean-Voided Midstream Performed By: #### U PE RAND, CAMILLA,URINE, ALDOLASE, SPE, CAMILLA SERUM #### [facility] , #### ADDONUAPLUS, T4F, ESR, CMP, CK, CBC, CRP, TSH3 #### [facility] [address] [place] [address] Glucose Ql (U) 50 mg/dL High Normal [facility] Comment on above: Order Comment: Name Collection Type:: Clean-Voided Midstream Performed By: #### U PE RAND, CAMILLA,URINE, ALDOLASE, SPE, CAMILLA SERUM #### [facility] , #### ADDONUAPLUS, T4F, ESR, CMP, CK, CBC, CRP, TSH3 #### [address] Hyaline Casts,Urine 0-8 Normal 0-8 [facility] Comment on above: Order Comment: Name Collection Type:: Clean-Voided Midstream Result Comment: PERF ORMED BY: [place] [address] PATHOLOGIST SOLDER MAKING LABORER ANAHY MCKEE M.D. Performed By: #### U PE RAND, CAMILLA,URINE, ALDOLASE, SPE, CAMILLA SERUM #### [facility] , #### ADDONUAPLUS, T4F, ESR, CMP, CK, CBC, CRP, TSH3 #### [address] Nitrite,Urine Negative Normal Negative [facility] Comment on above: Order Comment: Name Collection Type:: Clean-Voided Midstream Performed By: #### U PE RAND, CAMILLA,URINE, ALDOLASE, SPE, CAMILLA SERUM #### [facility] , #### ADDONUAPLUS, T4F, ESR, CMP, CK, CBC, CRP, TSH3 #### [address] Occult Blood,Urine Negative Normal Negative [facility] Comment on above: Order Comment: Name Collection Type:: Clean-Voided Midstream Performed By: #### U PE RAND, CAMILLA,URINE, ALDOLASE, SPE, CAMILLA SERUM #### [facility] , #### ADDONUAPLUS, T4F, ESR, CMP, CK, CBC, CRP, TSH3 #### [address] Protein,Urine Negative Normal Negative [facility] Comment on above: Order Comment: Name Collection Type:: Clean-Voided Midstream Performed By: #### U PE RAND, CAMILLA,URINE, ALDOLASE, SPE, CAMILLA SERUM #### [facility] , #### ADDONUAPLUS, T4F, ESR, CMP, CK, CBC, CRP, TSH3 #### [address] RBC,Urine 3-4 Normal 0-4 [facility] Comment on above: Order Comment: Name Collection Type:: Clean-Voided Midstream Performed By: #### U PE RAND, CAMILLA,URINE, ALDOLASE, SPE, CAMILLA SERUM #### [facility] , #### ADDONUAPLUS, T4F, ESR, CMP, CK, CBC, CRP, TSH3 #### [address] Specificy Bruno,Urine 1.013 Normal 1.001-1.030 [facility] Comment on above: Order Comment: Name Collection Type:: Clean-Voided Midstream Performed By: #### U PE RAND, CAMILLA,URINE, ALDOLASE, SPE, CAMILLA SERUM #### [facility] , #### ADDONUAPLUS, T4F, ESR, CMP, CK, CBC, CRP, TSH3 #### [address] Squamous Epithelial Cell,Urine 5-9 High 0-2 [facility] Comment on above: Order Comment: Name Collection Type:: Clean-Voided Midstream Performed By: #### U PE RAND, CAMILLA,URINE, ALDOLASE, SPE, CAMILLA SERUM #### [facility] , #### ADDONUAPLUS, T4F, ESR, CMP, CK, CBC, CRP, TSH3 #### [address] Urobilinogen,Urine Normal Normal Normal [facility] Comment on above: Order Comment: Name Collection Type:: Clean-Voided Midstream Performed By: #### U PE RAND, CAMILLA,URINE, ALDOLASE, SPE, CAMILLA SERUM #### [facility] , #### ADDONUAPLUS, T4F, ESR, CMP, CK, CBC, CRP, TSH3 #### [facility] [address] WBC,Urine 3-4 Normal 0-4 [facility] Comment on above: Order Comment: Name Collection Type:: Clean-Voided Midstream Performed By: #### U PE RAND, CAMILLA,URINE, ALDOLASE, SPE, CAMILLA SERUM #### [facility] , #### ADDONUAPLUS, T4F, ESR, CMP, CK, CBC, CRP, TSH3 #### [facility] [address] Eosinophils Auto (Bld) [#/Vo l]Ordered By: Jesus Ayala on 08-02-2024 Eosinophils (Bld) [#/Vol] Automated eosinophil count 0.0-0.45 [facility] Eosinophils/100 WBC Auto (Bl d)Ordered By: Jesus Ayala on 08-02-2024 Eosinophils/100 WBC (Bld) Automated eosinophil % . [facility] Erythrocyte Sedimentation Ra mathieu 08-02-2024 ESR (Bld) [Velocity] 73 mm/h High 0-19 [facility] Comment on above: Result Comment: PERF ORMED BY: [facility] [address] [place] [address] PATHOLOGIST SOLDER MAKING LABORER ANAHY MCKEE M.D. Performed By: #### U PE RAND, CAMILLA,URINE, ALDOLASE, SPE, CAMILLA SERUM ####[facility] ,#### ADDONUAPLUS, T4F, ESR, CMP, CK, CBC, CRP, TSH3 ####[facility] [id number] Erythrocyte distribution wid th Auto (RBC) [Ratio]Ordered By: Jesus Ayala on 08-02-2024 Erythrocyte distribution width (RBC) [Ratio] Erythrocyte distribution width [Ratio] by Automated count High 11.9-15.3 [facility] Erythrocyte distribution wid th [Ratio] by Automated countOrdered By: Jesus Ayala on 08-02-2024 Erythrocyte distribution width (RBC) [Ratio] 15.7 % High 11.9-15.3 [facility] Comment on above: Performed By: #### U PE RAND, CAMILLA,URINE, ALDOLASE, SPE, CAMILLA SERUM ####[facility] ,#### ADDONUAPLUS, T4F, ESR, CMP, CK, CBC, CRP, TSH3 ####[facility] [id number] [address] Erythrocyte sedimentation ra te by Photometric methodOrdered By: Jesus Ayala on 08-02-2024 ESR Photometric method (Bld) [Velocity] 73 mm/hr High 0-19 [facility] ESR Photometric method (Bld) [Velocity] Erythrocyte sedimentation rate by Photometric method High 0-19 [facility] Erythrocytes [#/area] in Uri ne sediment by Automated countOrdered By: Jesus Ayala on 08-02-2024 RBC Auto (Urine sed) [#/Area] 3-4 [HPF] 0-4 [facility] Erythrocytes [#/volume] in B lood by Automated countOrdered By: Jesus Ayala on 08-02-2024 RBC (Bld) [#/Vol] 4.37 10*6/uL Normal 3.60-5.00 [facility] Comment on above: Performed By: #### U PE RAND, CAMILLA,URINE, ALDOLASE, SPE, CAMILLA SERUM ####[facility] ,#### ADDONUAPLUS, T4F, ESR, CMP, CK, CBC, CRP, TSH3 ####[facility] [id number] Globulin Calc (S) [Mass/Vol] Ordered By: Jesus Ayala on 08-02-2024 Globulin (S) [Mass/Vol] Serum globulin measurement by calculation (mass/volume) [facility] Glucose [Mass/volume] in Ser um or PlasmaOrdered By: Jesus Ayala on 08-02-2024 Glucose [Mass/Vol] 146 mg/dL High 70-100 [facility] Comment on above: ADA recommended refe rence rangeRandom Glucose Reference Range is dependent on time and content of last meal. Glucose of more than 200 mg/dL in a nonstressed, ambulatory subject supports the diagnosis of Diabetes Mellitus. Result Comment: [place] Glucose Reference Range is dependent on time and content of last meal. Glucose of more than 200 mg/dL in a nonstressed, ambulatory subject supports the diagnosis of Diabetes Mellitus. ADA recommended reference range Performed By: #### U PE RAND, CAMILLA,URINE, ALDOLASE, SPE, CAMILLA SERUM #### [facility] , #### ADDONUAPLUS, T4F, ESR, CMP, CK, CBC, CRP, TSH3 #### [facility] [address] Glucose [Mass/Vol] Glucose [Mass/volume ] in Serum or Plasma [facility] 70-100 [facility] Comment on above: ADA recommended refe rence rangeRandom Glucose Reference Range is dependent on time and content of last meal. Glucose of more than 200 mg/dL in a nonstressed, ambulatory subject supports the diagnosis of Diabetes Mellitus. Glucose [Mass/volume] in Uri ne by Test stripOrdered By: Jesus Ayala on 08-02-2024 Glucose Test strip (U) [Mass/Vol] 50 mg/dL [facility] Glucose Test strip (U) [Mass/Vol] Glucose [Mass/volume] in Urine by Test strip [facility] Hematocrit Auto (Bld) [Volum e fraction]Ordered By: Jesus Ayala on 08-02-2024 Hematocrit (Bld) [Volume fraction] Hematocrit [Volume Fraction] of Blood by Automated count 34.0-46.4 [facility] Hematocrit [Volume Fraction] of Blood by Automated countOrdered By: Jesus Ayala on 08-02-2024 Hematocrit (Bld) [Volume fraction] 37.0 % Normal 34.0-46.4 [facility] Comment on above: Performed By: #### U PE RAND, CAMILLA,URINE, ALDOLASE, SPE, CAMILLA SERUM ####[facility] ,#### ADDONUAPLUS, T4F, ESR, CMP, CK, CBC, CRP, TSH3 ####[facility] [id number] [address] Hemoglobin Test strip Ql (U) Ordered By: Jesus Ayala on 08-02-2024 Hemoglobin Ql (U) Negative Negative [facility] Hemoglobin Ql (U) Hemoglobin [Presence ] in Urine by Test strip Negative [facility] Hemoglobin [Mass/volume] in BloodOrdered By: Jesus Ayala on 08-02-2024 Hemoglobin (Bld) [Mass/Vol] 12.4 g/dL Normal 11.8-15.4 [facility] Comment on above: Performed By: #### U PE RAND, CAMILLA,URINE, ALDOLASE, SPE, CAMILLA SERUM ####[facility] ,#### ADDONUAPLUS, T4F, ESR, CMP, CK, CBC, CRP, TSH3 ####[place] [id number] [address] Hemoglobin (Bld) [Mass/Vol] Hemoglobin [Mass/volume] in Blood 11.8-15.4 [facility] Immunofixation for UrineOrde red By: Jesus Gruberrow on 08-02-2024 Interpretation Immunofixation (U) [Interp] Immunofixation for Urine . [facility] Comment on above: No monoclonality det ected.Performed at: [facility] [address] [id number] Director: Gabriel Whitman PhD, Phone: [phone] Immunofixation, (CAMILLA), Urine on 08-02-2024 Immunofixation, (CAMILLA), Urine Comment Normal . [facility] Comment on above: Result Comment: No m onoclonality detected. Performed at: [facility] [address] [id number] [employer] Operator: Gabriel Whitman PhD, Phone: [phone] Performed By: #### U PE RAND, CAMILLA,URINE, ALDOLASE, SPE, CAMILLA SERUM ####[facility] ,#### ADDONUAPLUS, T4F, ESR, CMP, CK, CBC, CRP, TSH3 ####[place] [id number] [place] [id number] [place] Immunofixation,Serumon 08-02 Immunofixation, Serum Comment Normal . [facility] Comment on above: Result Comment: No m onoclonality detected. Performed By: #### U PE RAND, CAMILLA,URINE, ALDOLASE, SPE, CAMILLA SERUM ####[facility] ,#### ADDONUAPLUS, T4F, ESR, CMP, CK, CBC, CRP, TSH3 ####[place] [id number] [facility] Immunoglobulin A, Serum 136 mg/dL Normal 87-352 [facility] Comment on above: Performed By: #### U PE RAND, CAMILLA,URINE, ALDOLASE, SPE, CAMILLA SERUM ####[facility] ,#### ADDONUAPLUS, T4F, ESR, CMP, CK, CBC, CRP, TSH3 ####[place] [id number] [facility] Immunoglobulin G 1357 mg/dL Normal [phone] [facility] Comment on above: Performed By: #### U PE RAND, CAMILLA,URINE, ALDOLASE, SPE, CAMILLA SERUM ####[facility] ,#### ADDONUAPLUS, T4F, ESR, CMP, CK, CBC, CRP, TSH3 ####[place] [id number] [facility] Immunoglobulin M, Serum 94 mg/dL Normal 26-217 [facility] Comment on above: Result Comment: Perf ormed at: - [facility] [address] [id number] [employer] Operator: Gabriel Whitman PhD, Phone: [phone] Performed By: #### U PE RAND, CAMILLA,URINE, ALDOLASE, SPE, CAMILLA SERUM ####[facility] ,#### ADDONUAPLUS, T4F, ESR, CMP, CK, CBC, CRP, TSH3 ####[facility] [id number] Ketones Test strip Ql (U)Ord ered By: Jesus Ayala on 08-02-2024 Ketones Ql (U) Ketones [Presence] i n Urine by Test strip Negative [facility] Ketones [Presence] in Urine by Test stripOrdered By: Jesus Gruberrow on 08-02-2024 Ketones Ql (U) Negative Normal Negative [facility] Comment on above: Order Comment: Name Collection Type:: Clean-Voided Midstream Performed By: #### U PE RAND, CAMILLA,URINE, ALDOLASE, SPE, CAMILLA SERUM #### [facility] , #### ADDONUAPLUS, T4F, ESR, CMP, CK, CBC, CRP, TSH3 #### [facility] [address] Laboratory - UrinalysisOrder ed By: Jesus Jamie on 08-02-2024 Hyaline casts LM Ql (Urine sed) 0-8 [LPF] 0-8 [facility] Leukocyte esterase [Presence ] in Urine by Test stripOrdered By: Jesus Gruberrow on 08-02-2024 Leukocyte esterase Test strip Ql (U) Negative Normal Negative [facility] Comment on above: Order Comment: Name Collection Type:: Clean-Voided Midstream Performed By: #### U PE RAND, CAMILLA,URINE, ALDOLASE, SPE, CAMILLA SERUM #### [facility] , #### ADDONUAPLUS, T4F, ESR, CMP, CK, CBC, CRP, TSH3 #### [facility] [address] Leukocyte esterase Test strip Ql (U) Leukocyte esterase [Presence] in Urine by Test strip Negative [facility] Leukocytes [#/area] in Urine sediment by Automated countOrdered By: Jesus Ayala on 08-02-2024 WBC Auto (Urine sed) [#/Area] 3-4 [HPF] 0-4 [facility] Leukocytes [#/volume] correc noah for nucleated erythrocytes in Blood by Automated counOrdered By: Jesus Gruberrow on 08-02-2024 WBC corrected for nucl RBC Auto (Bld) [#/Vol] 7.8 10*3/uL 3.8-11.6 [facility] WBC corrected for nucl RBC Auto (Bld) [#/Vol] Leukocytes [#/volume] corrected for nucleated erythrocytes in Blood by Automated coun 3.8-11.6 [facility] Leukocytes [#/volume] in Blo od by Automated countOrdered By: Jesus Gruberrow on 08-02-2024 WBC (Bld) [#/Vol] 7.8 10*3/uL Normal 3.8-11.6 [facility] Comment on above: Performed By: #### U PE RAND, CAMILLA,URINE, ALDOLASE, SPE, CAMILLA SERUM ####[facility] ,#### ADDONUAPLUS, T4F, ESR, CMP, CK, CBC, CRP, TSH3 ####[facility] [id number] Lymphocytes Auto (Bld) [#/Vo l]Ordered By: Jesus Ayala on 08-02-2024 Lymphocytes (Bld) [#/Vol] Lymphocytes [#/volume] in Blood by Automated count 1.00-4.8 [facility] Lymphocytes [#/volume] in Bl ood by Automated countOrdered By: Jesus Jamie on 08-02-2024 Lymphocytes (Bld) [#/Vol] 1.2 10*3/uL Normal 1.00-4.8 [facility] Comment on above: Performed By: #### U PE RAND, CAMILLA,URINE, ALDOLASE, SPE, CAMILLA SERUM ####[facility] ,#### ADDONUAPLUS, T4F, ESR, CMP, CK, CBC, CRP, TSH3 ####[facility] [address] [place] [address] Lymphocytes/100 WBC Auto (Bl d)Ordered By: Jesus Ayala on 08-02-2024 Lymphocytes/100 WBC (Bld) Lymphocytes/100 leukocytes in Blood by Automated count . [facility] Lymphocytes/100 leukocytes i n Blood by Automated countOrdered By: Jesus Ayala on 08-02-2024 Lymphocytes/100 WBC (Bld) 15.0 % Normal . [facility] Comment on above: Performed By: #### U PE RAND, CAMILLA,URINE, ALDOLASE, SPE, CAMILLA SERUM ####[facility] ,#### ADDONUAPLUS, T4F, ESR, CMP, CK, CBC, CRP, TSH3 ####[facility] [id number] MCH Auto (RBC) [Entitic mass ]Ordered By: Jesus Ayala on 08-02-2024 MCH (RBC) [Entitic mass] MCH [Entitic mass] by Automated count 24.7-34.3 [facility] MCH [Entitic mass] by Automa noah countOrdered By: Jesus Ayala on 08-02-2024 MCH (RBC) [Entitic mass] 28.3 pg Normal 24.7-34.3 [facility] Comment on above: Performed By: #### U PE RAND, CAMILLA,URINE, ALDOLASE, SPE, CAMILLA SERUM ####[facility] ,#### ADDONUAPLUS, T4F, ESR, CMP, CK, CBC, CRP, TSH3 ####[address] MCHC Auto (RBC) [Mass/Vol]Or dered By: Jesus Ayala on 08-02-2024 MCHC (RBC) [Mass/Vol] 33.5 g/dL 32.0-35.0 [facility] MCHC (RBC) [Mass/Vol] MCHC [Mass/volume] by Automated count 32.0-35.0 [facility] MCV Auto (RBC) [Entitic vol] Ordered By: Jesus Ayala on 08-02-2024 MCV (RBC) [Entitic vol] MCV [Entitic vol ume] by Automated count 80-100 [facility] MCV [Entitic volume] by Auto mated countOrdered By: Jesus Ayala on 08-02-2024 MCV (RBC) [Entitic vol] 84.6 fL Normal 80-100 [facility] Comment on above: Performed By: #### U PE RAND, CAMILLA,URINE, ALDOLASE, SPE, CAMILLA SERUM ####[facility] ,#### ADDONUAPLUS, T4F, ESR, CMP, CK, CBC, CRP, TSH3 ####[facility] Nup[address] Monocytes Auto (Bld) [#/Vol] Ordered By: Jesus Ayala on 08-02-2024 Monocytes (Bld) [#/Vol] Automated blood monocyte count 0.0-0.8 [facility] Monocytes/100 WBC Auto (Bld) Ordered By: Jesus Ayala on 08-02-2024 Monocytes/100 WBC (Bld) Automated monocyte % . [facility] Neutrophils Auto (Bld) [#/Vo l]Ordered By: Jesus Ayala on 08-02-2024 Neutrophils (Bld) [#/Vol] Neutrophils [#/volume] in Blood by Automated count 1.8-7.7 [facility] Neutrophils [#/volume] in Bl ood by Automated countOrdered By: Jesus Ayala on 08-02-2024 Neutrophils (Bld) [#/Vol] 6.0 10*3/uL Normal 1.8-7.7 [facility] Comment on above: Performed By: #### U PE RAND, CAMILLA,URINE, ALDOLASE, SPE, CAMILLA SERUM ####[facility] ,#### ADDONUAPLUS, T4F, ESR, CMP, CK, CBC, CRP, TSH3 ####[facility] Neutrophils/100 WBC Auto (Bl d)Ordered By: Jesus Ayala on 08-02-2024 Neutrophils/100 WBC (Bld) Automated neutrophil % . [facility] Nitrite Test strip Ql (U)Ord ered By: Jesus Ayala on 08-02-2024 Nitrite Ql (U) Negative Negative [facility] Nitrite Ql (U) Nitrite [Presence] i n Urine by Test strip Negative [facility] No Panel InformationOrdered By: Jesus Ayala on 08-02-2024 Estimated GFR (CKD-EPI) > 60.0 mL/Min [facility] Creatinine Clearance (Chem N/A [facility] Protein Electrophoresis M-Maury Not observed g/dL Not Observed [facility] Protein Electrophoresis Note Comment . [facility] Comment on above: Protein electrophore sis scan will follow via computer,mail, or display artist delivery.Performed at: [address] [id number] Director: Gabriel Whitman PhD, Phone: [phone] Urine Random Prot Electrophor Note Comment . [facility] Comment on above: Protein electrophore sis scan will follow via computer,mail, or display artist delivery. Nucleated erythrocytes [Pres ence] in Blood by Automated countOrdered By: Jesus Ayala on 08-02-2024 Nucleated RBC Auto Ql (Bld) 0.1 /100{WBC} 0-0.5 [facility] Nucleated RBC Auto Ql (Bld) Nucleated erythrocytes [Presence] in Blood by Automated count 0-0.5 [facility] Platelet mean volume Auto (B ld) [Entitic vol]Ordered By: Jesus Ayala on 08-02-2024 Platelet mean volume (Bld) [Entitic vol] Platelet mean volume [Entitic volume] in Blood by Automated count 6.3-10.7 [facility] Platelet mean volume [Entiti c volume] in Blood by Automated countOrdered By: Jesus Ayala on 08-02-2024 Platelet mean volume (Bld) [Entitic vol] 6.6 fL Normal 6.3-10.7 [facility] Comment on above: Performed By: #### U PE RAND, CAMILLA,URINE, ALDOLASE, SPE, CAMILLA SERUM ####[facility] ,#### ADDONUAPLUS, T4F, ESR, CMP, CK, CBC, CRP, TSH3 ####[facility] [id number] Platelets Auto (Bld) [#/Vol] Ordered By: Jesus Ayala on 08-02-2024 Platelets (Bld) [#/Vol] Platelets [#/vol ume] in Blood by Automated count 150-450 [facility] Platelets [#/volume] in Bloo d by Automated countOrdered By: Jesus Ayala on 08-02-2024 Platelets (Bld) [#/Vol] 439 10*3/uL Normal 150-450 [facility] Comment on above: Performed By: #### U PE RAND, CAMILLA,URINE, ALDOLASE, SPE, CAMILLA SERUM ####[facility] ,#### ADDONUAPLUS, T4F, ESR, CMP, CK, CBC, CRP, TSH3 ####[facility] [id number] Potassium [Moles/volume] in Serum or PlasmaOrdered By: Jesus Ayala on 08-02-2024 Potassium [Moles/Vol] 3.8 mmol/L Normal 3.5-5.1 [facility] Comment on above: Performed By: #### U PE RAND, CAMILLA,URINE, ALDOLASE, SPE, CAMILLA SERUM #### [facility] , #### ADDONUAPLUS, T4F, ESR, CMP, CK, CBC, CRP, TSH3 #### [facility] [address] Potassium [Moles/Vol] Potassium [Moles/v olume] in Serum or Plasma 3.5-5.1 [facility] Protein Electro, Random Urin yonis 08-02-2024 Albumin, Urine 36.1 % Normal . [facility] Comment on above: Performed By: #### U PE RAND, CAMILLA,URINE, ALDOLASE, SPE, CAMILLA SERUM ####[facility] ,#### ADDONUAPLUS, T4F, ESR, CMP, CK, CBC, CRP, TSH3 ####[facility] Iox[address]24 [place] [address] [place] Rwygh-9-Kzhtpzrz, Urine 4.1 % Normal . T marcelle [facility] Comment on above: Performed By: #### U PE RAND, CAMILLA,URINE, ALDOLASE, SPE, CAMILLA SERUM ####[facility] ,#### ADDONUAPLUS, T4F, ESR, CMP, CK, CBC, CRP, TSH3 ####[address] Zqxyc-7-Glbtyojp, Urine 18.4 % Normal . [facility] Comment on above: Performed By: #### U PE RAND, CAMILLA,URINE, ALDOLASE, SPE, CAMILLA SERUM ####[facility] ,#### ADDONUAPLUS, T4F, ESR, CMP, CK, CBC, CRP, TSH3 ####[address] Beta Globulin, Urine 24.3 % Normal . [facility] Comment on above: Performed By: #### U PE RAND, CAMILLA,URINE, ALDOLASE, SPE, CAMILLA SERUM ####[facility] ,#### ADDONUAPLUS, T4F, ESR, CMP, CK, CBC, CRP, TSH3 ####[address] Gamma Globulin, Urine 17.1 % Normal . [facility] Comment on above: Performed By: #### U PE RAND, CAMILLA,URINE, ALDOLASE, SPE, CAMILLA SERUM ####[facility] ,#### ADDONUAPLUS, T4F, ESR, CMP, CK, CBC, CRP, TSH3 ####[address] M-Maury % Not Observed Normal Not Observed [facility] Comment on above: Performed By: #### U PE RAND, CAMILLA,URINE, ALDOLASE, SPE, CAMILLA SERUM ####[facility] ,#### ADDONUAPLUS, T4F, ESR, CMP, CK, CBC, CRP, TSH3 ####[address] Please Note: Comment Normal . [facility] Comment on above: Result Comment: Prot ein electrophoresis scan will follow via computer, mail, or display artist delivery. PERFORMED BY: [facility] [address] [place] [id number] PATHOLOGIST [employer] MAKING LABORER ANAHY MCKEE M.D. Performed By: #### U PE RAND, CAMILLA,URINE, ALDOLASE, SPE, CAMILLA SERUM ####[facility] ,#### ADDONUAPLUS, T4F, ESR, CMP, CK, CBC, CRP, TSH3 ####[place] [id number] [facility] Protein (U) [Mass/Vol] 9.0 mg/dL Normal Not Estab. Th e [facility] Comment on above: Performed By: #### U PE RAND, CAMILLA,URINE, ALDOLASE, SPE, CAMILLA SERUM ####[facility] ,#### ADDONUAPLUS, T4F, ESR, CMP, CK, CBC, CRP, TSH3 ####[place] [id number] [facility] Protein Electrophoresis, Ser umon 08-02-2024 Albumin [Mass/Vol] 3.9 g/dL Normal 2.9-4.4 [facility] Comment on above: Performed By: #### U PE RAND, CAMILLA,URINE, ALDOLASE, SPE, CAMILLA SERUM ####[facility] ,#### ADDONUAPLUS, T4F, ESR, CMP, CK, CBC, CRP, TSH3 ####[place] [id number] [facility] Albumin/Globulin [Mass ratio] 1.1 {ratio} Normal 0.7-1.7 [facility] Comment on above: Performed By: #### U PE RAND, CAMILLA,URINE, ALDOLASE, SPE, CAMILLA SERUM ####[facility] ,#### ADDONUAPLUS, T4F, ESR, CMP, CK, CBC, CRP, TSH3 ####[place] [id number] [facility] Qhstz-4-Ajyejwmb 0.2 g/dL Normal 0.0-0.4 [facility] Comment on above: Performed By: #### U PE RAND, CAMILLA,URINE, ALDOLASE, SPE, CAMILLA SERUM ####[facility] ,#### ADDONUAPLUS, T4F, ESR, CMP, CK, CBC, CRP, TSH3 ####[address] Iafxl-4-Dafjqwvd 1.0 g/dL Normal 0.4-1.0 [facility] Comment on above: Performed By: #### U PE RAND, CAMILLA,URINE, ALDOLASE, SPE, CAMILLA SERUM ####[facility] ,#### ADDONUAPLUS, T4F, ESR, CMP, CK, CBC, CRP, TSH3 ####[address] Beta Globulin 1.2 g/dL Normal 0.7-1.3 [facility] Comment on above: Performed By: #### U PE RAND, CAMILLA,URINE, ALDOLASE, SPE, CAMILLA SERUM ####[facility] ,#### ADDONUAPLUS, T4F, ESR, CMP, CK, CBC, CRP, TSH3 ####[address] Gamma Globulin 1.3 g/dL Normal 0.4-1.8 [facility] Comment on above: Performed By: #### U PE RAND, CAMILLA,URINE, ALDOLASE, SPE, CAMILLA SERUM ####[facility] ,#### ADDONUAPLUS, T4F, ESR, CMP, CK, CBC, CRP, TSH3 ####[place] [address] [place] Globulin (S) [Mass/Vol] 3.6 g/dL Normal 2.2-3.9 [facility] Comment on above: Performed By: #### U PE RAND, CAMILLA,URINE, ALDOLASE, SPE, CAMILLA SERUM ####[facility] ,#### ADDONUAPLUS, T4F, ESR, CMP, CK, CBC, CRP, TSH3 ####[address] M-Maury Not Observed Normal Not Observed [facility] Comment on above: Performed By: #### U PE RAND, CAMILLA,URINE, ALDOLASE, SPE, CAMILLA SERUM ####[facility] ,#### ADDONUAPLUS, T4F, ESR, CMP, CK, CBC, CRP, TSH3 ####[address] SPE-Note Comment Normal . [facility] Comment on above: Result Comment: Prot ein electrophoresis scan will follow via computer, mail, or display artist delivery. Performed at: [facility] [address] [id number] [employer] Operator: Gabriel Whitman PhD, Phone: [phone] PERFORMED BY: [facility] [address] [place] [address] PATHOLOGIST [employer] MAKING LABORER ANAHY MCKEE M.D. Performed By: #### U PE RAND, CAMILLA,URINE, ALDOLASE, SPE, CAMILLA SERUM ####[facility] ,#### ADDONUAPLUS, T4F, ESR, CMP, CK, CBC, CRP, TSH3 ####[address] Protein Test strip (U) [Mass /Vol]Ordered By: Jesus Ayala on 08-02-2024 Protein (U) [Mass/Vol] Negative Negative [facility] Protein (U) [Mass/Vol] Protein [Mass/vol ume] in Urine by Test strip Negative [facility] Protein [Mass/volume] in Ser um or PlasmaOrdered By: Jesus Ayala on 08-02-2024 Protein [Mass/Vol] 7.5 g/dL Normal 6.0-8.5 [facility] Comment on above: Performed By: #### U PE RAND, CAMILLA,URINE, ALDOLASE, SPE, CAMILLA SERUM #### [facility] , #### ADDONUAPLUS, T4F, ESR, CMP, CK, CBC, CRP, TSH3 #### [facility] [address] Performed By: #### U PE RAND, CAMILLA,URINE, ALDOLASE, SPE, CAMILLA SERUM ####[facility] ,#### ADDONUAPLUS, T4F, ESR, CMP, CK, CBC, CRP, TSH3 ####[facility] [id number] [place] [address] Protein [Mass/Vol] Protein [Mass/volume ] in Serum or Plasma 6.0-8.5 [facility] RBC Auto (Bld) [#/Vol]Ordere d By: Jesus Ayala on 08-02-2024 RBC (Bld) [#/Vol] Erythrocytes [#/volu me] in Blood by Automated count 3.60-5.00 [facility] Serum aldolase measurementOr dered By: Jesus Ayala on 08-02-[address] biopsy 3.3-10.3 [facility] Comment on above: Performed at: - [address] Director: Gabriel Whitman PhD, Phone: [phone] Serum globulin measurement ( mass/volume)Ordered By: Jesus Ayala on 08-02-2024 Globulin (S) [Mass/Vol] Serum globulin measurement (mass/volume) 2.2-3.9 [facility] Serum globulin measurement b y calculation (mass/volume)Ordered By: Jesus Ayala on 08-02-2024 Globulin (S) [Mass/Vol] 3.2 g/dL Normal [facility] Comment on above: Performed By: #### U PE RAND, CAMILLA,URINE, ALDOLASE, SPE, CAMILLA SERUM #### [facility] , #### ADDONUAPLUS, T4F, ESR, CMP, CK, CBC, CRP, TSH3 #### [facility] [address] Serum immunofixation electro phoresisOrdered By: Jesus Ayala on 08-02-2024 Serum Immunofixation Comment . [facility] Comment on above: No monoclonality det ected. Serum or plasma IgA measurem ent (mass/volume)Ordered By: Jesus Ayala on 08-02-2024 IgA [Mass/Vol] IgA [Mass/volume] in Serum or Plasma 87-352 [facility] Serum or plasma IgG measurem ent (mass/volume)Ordered By: Jesus Ayala on 08-02-2024 IgG [Mass/Vol] IgG [Mass/volume] in Serum or Plasma [phone] [facility] Serum or plasma IgM measurem ent (mass/volume)Ordered By: Jesus Ayala on 08-02-2024 IgM [Mass/Vol] IgM [Mass/volume] in Serum or Plasma 26-217 [facility] Comment on above: Performed at: [place] [id number] Director: Gabriel Whitman PhD, Phone: [phone] Serum or plasma albumin ge urement (mass/volume)Ordered By: Jesus Ayala on 08-02-2024 Albumin [Mass/Vol] Albumin [Mass/volume ] in Serum or Plasma 2.9-4.4 [facility] Serum or plasma albumin/glob ulin mass ratioOrdered By: Jesus Ayala on 08-02-2024 Albumin/Globulin [Mass ratio] 1.3 {ratio} Normal [facility] Comment on above: Performed By: #### U PE RAND, CAMILLA,URINE, ALDOLASE, SPE, CAMILLA SERUM #### [facility] , #### ADDONUAPLUS, T4F, ESR, CMP, CK, CBC, CRP, TSH3 #### [facility] [address] Albumin/Globulin [Mass ratio] Serum or plasma albumin/globulin mass ratio 0.7-1.7 [facility] Serum or plasma alpha 1 glob ulin measurement by electrophoresis (mass/volume)Ordered By: Jesus Ayala on 08-02-2024 Alpha 1 globulin Elph [Mass/Vol] Serum or plasma alpha 1 globulin measurement by electrophoresis (mass/volume) 0.0-0.4 [facility] Serum or plasma alpha 2 glob ulin measurement by electrophoresis (mass/volume)Ordered By: Jesus Ayala on 08-02-2024 Alpha 2 globulin Elph [Mass/Vol] Serum or plasma alpha 2 globulin measurement by electrophoresis (mass/volume) 0.4-1.0 [facility] Serum or plasma anion gap de terminationOrdered By: Jesus Ayala on 08-02-2024 Anion gap [Moles/Vol] 12.2 mmol/L Normal 6.0-15.0 [facility] Comment on above: Performed By: #### U PE RAND, CAMILLA,URINE, ALDOLASE, SPE, CAMILLA SERUM #### [facility] , #### ADDONUAPLUS, T4F, ESR, CMP, CK, CBC, CRP, TSH3 #### [address] Anion gap [Moles/Vol] Serum or plasma an ion gap determination 6.0-15.0 [facility] Serum or plasma beta globuli n measurement by electrophoresis (mass/volume)Ordered By: Jesus Gruberrow on 08-02-2024 Beta globulin Elph [Mass/Vol] Serum or plasma beta globulin measurement by electrophoresis (mass/volume) 0.7-1.3 [facility] Serum or plasma cancer antig en 125 (CA-125) measurement (units/volume)Ordered By: Blake Hinojosa on 08-02-2024 Cancer Ag 125 Qn Serum or plasma canc er antigen 125 (CA-125) measurement (units/volume) 0.0-38.1 [facility] Comment on above: Xeko El ectrochemiluminescence Immunoassay(ECLIA)Values obtained with different assay methods or kits cannotbe used interchangeably. Results cannot be interpreted asabsolute evidence of the presence or absence of malignantdisease.Performed at: [facility] [address] [id number] Director: Gabriel Whitman PhD, Phone: [phone] Serum or plasma carcinoembry onic antigen measurement (mass/volume)Ordered By: Blake Hinojosa on 08-02-2024 Carcinoembryonic Ag [Mass/Vol] 1.0 ng/mL 0.0-3.0 [facility] Comment on above: Serial tumor marker results determined by assays using different manufacturers or methods may not be comparable.[facility] pneumatic tube operator and method:RUSSELL UNICEL DXI, 2 SITE IMMUNOENZYMATIC SANDWICH ASSAY. Serum or plasma gamma globul in measurement by electrophoresis (mass/volume)Ordered By: Jesus Ayala on 08-02-2024 Gamma globulin Elph [Mass/Vol] Serum or plasma gamma globulin measurement by electrophoresis (mass/volume) 0.4-1.8 [facility] Sodium [Moles/volume] in Ser um or PlasmaOrdered By: Jesus Gruberrow on 08-02-2024 Sodium [Moles/Vol] 138 mmol/L Normal 136-145 [facility] Comment on above: Performed By: #### U PE RAND, CAMILLA,URINE, ALDOLASE, SPE, CAMILLA SERUM #### [facility] , #### ADDONUAPLUS, T4F, ESR, CMP, CK, CBC, CRP, TSH3 #### [facility] [address] Sodium [Moles/Vol] Sodium [Moles/volume ] in Serum or Plasma 136-145 [facility] Specific gravity Test strip (U) [Rel density]Ordered By: Jesus rGuberrow on 08-02-2024 Specific gravity (U) [Rel density] 1.013 1.001-1.030 [facility] Specific gravity (U) [Rel density] Specific gravity of Urine by Test strip 1.001-1.030 [facility] Thyrotropin [Units/volume] i n Serum or PlasmaOrdered By: Jesus Gruberrow on 08-02-2024 TSH Qn 2.77 m[IU]/L Normal 0.45-5.33 [facility] Comment on above: Result Comment: PERF ORMED BY: [place] [address] PATHOLOGIST SOLDER MAKING LABORER ANAHY MCKEE M.D. Performed By: #### U PE RAND, CAMILLA,URINE, ALDOLASE, SPE, CAMILLA SERUM #### [facility] , #### ADDONUAPLUS, T4F, ESR, CMP, CK, CBC, CRP, TSH3 #### [facility] [address] TSH Qn Thyrotropin [Units/volume] in Serum or Plasma 0.45-5.33 [facility] Thyroxine (T4) free [Mass/vo lume] in Serum or PlasmaOrdered By: Jesus Ayala on 08-02-2024 Free T4 [Mass/Vol] 0.68 ng/dL Normal 0.61-1.12 [facility] Comment on above: Performed By: #### U PE RAND, CAMILLA,URINE, ALDOLASE, SPE, CAMILLA SERUM #### [facility] , #### ADDONUAPLUS, T4F, ESR, CMP, CK, CBC, CRP, TSH3 #### [facility] [address] [place] [address] Free T4 [Mass/Vol] Thyroxine (T4) free [Mass/volume] in Serum or Plasma 0.61-1.12 [facility] Urea nitrogen [Mass/volume] in Serum or PlasmaOrdered By: Jesus Ayala on 08-02-2024 Urea nitrogen [Mass/Vol] 14 mg/dL Normal 04-29 [facility] Comment on above: Performed By: #### U PE RAND, CAMILLA,URINE, ALDOLASE, SPE, CAMILLA SERUM #### [facility] , #### ADDONUAPLUS, T4F, ESR, CMP, CK, CBC, CRP, TSH3 #### [facility] [address] [place] [address] Urea nitrogen [Mass/Vol] Urea nitrogen [Mass/volume] in Serum or Plasma 04-29 [facility] Urine alpha 1 globulin/total protein by electrophoresisOrdered By: Jesus Ayala on 08-02-2024 Alpha 1 globulin Elph (U) [Mass fraction] Urine alpha 1 globulin/total protein by electrophoresis . [facility] Urine alpha 2 globulin/total protein ratio by electrophoresisOrdered By: Jesus Ayala on 08-02-2024 Alpha 2 globulin Elph (U) [Mass fraction] Urine alpha 2 globulin/total protein ratio by electrophoresis . [facility] Urine appearanceOrdered By: Jesus Ayala on 08-02-2024 Appearance (U) Clear Normal Clear [facility] Comment on above: Order Comment: Name Collection Type:: Clean-Voided Midstream Performed By: #### U PE RAND, CAMILLA,URINE, ALDOLASE, SPE, CAMILLA SERUM #### [facility] , #### ADDONUAPLUS, T4F, ESR, CMP, CK, CBC, CRP, TSH3 #### [facility] [address] [place] [address] [place] Urine bacteria detection by automated methodOrdered By: Jesus Ayala on 08-02-2024 Bacteria Auto Ql (U) Bacteria [Presence] in Urine by Automated None Seen [facility] Urine beta globulin measurem ent by electrophoresis (mass/volume)Ordered By: Jesus Ayala on 08-02-2024 Beta globulin Elph (U) [Mass/Vol] Urine beta globulin measurement by electrophoresis (mass/volume) . [facility] Urine protein measurement (m ass/volume)Ordered By: Jesus Ayala on 08-02-2024 Protein (U) [Mass/Vol] Protein [Mass/vol ume] in Urine Not Estab. [facility] Urobilinogen Test strip (U) [Mass/Vol]Ordered By: Jesus Ayala on 08-02-2024 Urobilinogen (U) [Mass/Vol] Normal mg/dL Normal [facility] Urobilinogen (U) [Mass/Vol] Urobilinogen [Mass/volume] in Urine by Test strip Normal [facility] WBC Auto (Bld) [#/Vol]Ordere d By: Jesus Ayala on 08-02-2024 WBC (Bld) [#/Vol] Leukocytes [#/volume ] in Blood by Automated count 3.8-11.6 [facility] XR chest 2V*on 08-02-2024 XR chest 2V* [facility] [place] [address] [place] [address] XRay Report Signed Patient: Mandeep Puri MR#: [id number] 15 : 1975 Acct:[id number] Age/Sex: 48 / F ADM Date: 08/02/24 Loc: XD Room: Type: [facility] Attending Dr: Jesus Ayala MD Copies to: Jeuss Ayala MD Ordering Provider: Jesus Ayala MD [...] Trupti Adorno M.D.08/02/2024 4:18 PM Dictation Location: [place] [address] Transcribed By: [facility] 08/02/241617 Dictated By: Trupti Adorno MD 08/02/241616 Signed By: 08/02/24 1618 Normal [facility] pH Test strip (U)Ordered By: Jesus Ayala on 08-02-2024 pH (U) pH of Urine by Test strip 5.0-9.0 [facility] pH of Urine by Test stripOrd ered By: Jesus Ayala on 08-02-2024 pH (U) 7.0 [pH] Normal 5.0-9.0 [facility] Comment on above: Order Comment: Name Collection Type:: Clean-Voided Midstream Performed By: #### U PE RAND, CAMILLA,URINE, ALDOLASE, SPE, CAMILLA SERUM #### [facility] , #### ADDONUAPLUS, T4F, ESR, CMP, CK, CBC, CRP, TSH3 #### [facility] [address] ALL CBC WITH AUTO DIFFon BASOPHILS ABSOLUTE AUTO 0 N [facility] Basophils/100 WBC (Bld) 0.5 % 0.2 - 2.0 % [facility] Eosinophils/100 WBC (Bld) 2.9 % 0.9 - 7.0 % [facility] Erythrocyte distribution width (RBC) [Ratio] 14.4 % 11.0 - 15.0 % [facility] Hematocrit (Bld) [Volume fraction] 35.2 % Low 36.0 - 48.0 % [facility] Hemoglobin (Bld) [Mass/Vol] 11.4 g/dL Low 12.0 - 16.0 g/dL [facility] IMMATURE GRANULOCYTES ABS AUTO 0.06 High [facility] Immature granulocytes/100 WBC (Bld) 0.7 % High 0.0 - 0.5 % [facility] Interpretation and review of laboratory results Abnormal [facility] LYMPHOCYTES ABSOLUTE AUTO 1.1 Low [facility] Lymphocytes/100 WBC (Bld) 14 % Low 20.5 - 60.0 % [facility] MCH (RBC) [Entitic mass] 28 pg 26.7 - 34.0 pg [facility] MCHC (RBC) [Mass/Vol] 32.4 g/dL 29.9 - 35.2 g/dL [facility] MCV (RBC) [Entitic vol] 86.5 fL 81.0 - 99.0 fL [facility] MONOCYTES ABSOLUTE AUTO 0.4 N [facility] Monocytes/100 WBC (Bld) 5 % 1.7 - 12.0 % [facility] NEUTROPHILS ABSOLUTE AUTO 6.3 [facility] Neutrophils/100 WBC (Bld) 76.9 % High 43.0 - 75.0 % [facility] Platelet mean volume (Bld) [Entitic vol] 8.3 fL Low 9.5 - 13.5 fL [facility] TBH EO # 0.2 [facility] TBH PLT 362 [facility] TB RBC 4.07 Low [facility] TB WBC 8.2 [facility] Follow-Upon 07-07-2024 Follow-Up [id number] Antonio Puri i 1975 F Date Provider Department Center 07/07/2024 3844-SREE BLANCHARD [facility] URO Second Fl Family History Problem Relation Age of Onset Fibromyalgia Mother Heart disease Father Hypertension Sister Polycystic kidney disease Sister Hypertension Brother Polycystic kidney disease Brother Family Status - Relation Status Age at Mother Father Sister Brother Level of Service:01584 [place] OFFICE/OUTPATIENT ESTABLISHED LOW MDM 20 MIN Reason for Visit and Comments: UTI [[id number]] - CT results Normal [facility] URINE CULTURE, ROUTINEon Bacteria identified Cx Nom (U) ESCHERICHIA COLI Abnormal [facility] Comment on above: Result Comment: >100 ,000 CFU/Ml Escherichia coli Susceptibility to Follow Performed By: #### L [id number] #### [facility] ([facility]) [address] [place] [address] CT [facility]BDOMEN [facility] ABDOMEN PELVIS WO [...] kidney with innumerable circumscribed lesions within the hughes kidneys, many which are simple cysts, others [...] Epperson MD. Not Vldtd Invalid Interpretation Code [facility] ALL CBC WITH AUTO DIFFon BASOPHILS ABSOLUTE AUTO 0.0 N [facility] Basophils/100 WBC (Bld) 0.4 % 0.2 - 2.0 % [facility] Eosinophils/100 WBC (Bld) 2.4 % 0.9 - 7.0 % [facility] Erythrocyte distribution width (RBC) [Ratio] 15.5 % High 11.0 - 15.0 % [facility] Hematocrit (Bld) [Volume fraction] 37.7 % 36.0 - 48.0 % [facility] Hemoglobin (Bld) [Mass/Vol] 11.9 g/dL Low 12.0 - 16.0 g/dL [facility] IMMATURE GRANULOCYTES ABS AUTO 0.03 [facility] Immature granulocytes/100 WBC (Bld) 0.4 % 0.0 - 0.5 % [facility] Interpretation and review of laboratory results Abnormal [facility] LYMPHOCYTES ABSOLUTE AUTO 1.1 Low [facility] Lymphocytes/100 WBC (Bld) 14.8 % Low 20.5 - 60.0 % [facility] MCH (RBC) [Entitic mass] 27.9 pg 26.7 - 34.0 pg [facility] MCHC (RBC) [Mass/Vol] 31.6 g/dL 29.9 - 35.2 g/dL [facility] MCV (RBC) [Entitic vol] 88.3 fL 81.0 - 99.0 fL [facility] MONOCYTES ABSOLUTE AUTO 0.4 N [facility] Monocytes/100 WBC (Bld) 5.1 % 1.7 - 12.0 % [facility] NEUTROPHILS ABSOLUTE AUTO 5.7 [facility] Neutrophils/100 WBC (Bld) 76.9 % High 43.0 - 75.0 % [facility] Platelet mean volume (Bld) [Entitic vol] 8.6 fL Low 9.5 - 13.5 fL [facility] TBH EO # 0.2 [facility] TBH PLT 333 [facility] TB RBC 4.27 [facility] TB WBC 7.5 [facility] Orders Onlyon 06-15-2024 Orders Only [id number] Antonio Puri i 1975 F Date Provider Department Center 06/15/2024 Camron-MUNIRA PHAN None Family History Problem Relation Age of Onset Fibromyalgia Mother Heart disease Father Hypertension Sister Polycystic kidney disease Sister Hypertension Brother Polycystic kidney disease Brother Family Status - Relation Status Age at Mother Father Sister Brother [facility] ALL CBC WITH AUTO DIFFon BASOPHILS ABSOLUTE AUTO 0.0 N [facility] Basophils/100 WBC (Bld) 0.5 % 0.2 - 2.0 % [facility] Eosinophils/100 WBC (Bld) 3.0 % 0.9 - 7.0 % [facility] Erythrocyte distribution width (RBC) [Ratio] 15.9 % High 11.0 - 15.0 % [facility] Hematocrit (Bld) [Volume fraction] 36.3 % 36.0 - 48.0 % [facility] Hemoglobin (Bld) [Mass/Vol] 11.8 g/dL Low 12.0 - 16.0 g/dL [facility] IMMATURE GRANULOCYTES ABS AUTO 0.04 High [facility] Immature granulocytes/100 WBC (Bld) 0.5 % 0.0 - 0.5 % [facility] Interpretation and review of laboratory results Abnormal [facility] LYMPHOCYTES ABSOLUTE AUTO 1.2 [facility] Lymphocytes/100 WBC (Bld) 14.0 % Low 20.5 - 60.0 % [facility] MCH (RBC) [Entitic mass] 28.0 pg 26.7 - 34.0 pg [facility] MCHC (RBC) [Mass/Vol] 32.5 g/dL 29.9 - 35.2 g/dL [facility] MCV (RBC) [Entitic vol] 86.0 fL 81.0 - 99.0 fL [facility] MONOCYTES ABSOLUTE AUTO 0.5 N [facility] Monocytes/100 WBC (Bld) 5.7 % 1.7 - 12.0 % [facility] NEUTROPHILS ABSOLUTE AUTO 6.4 [facility] Neutrophils/100 WBC (Bld) 76.3 % High 43.0 - 75.0 % [facility] Platelet mean volume (Bld) [Entitic vol] 8.6 fL Low 9.5 - 13.5 fL [facility] TBH EO # 0.3 [facility] TBH PLT 331 [facility] TB RBC 4.22 [facility] TB WBC 8.4 [facility] Consulton 05-19-2024 Consult [id number] Antonio Puri i 1975 F Date Provider Department Center 05/19/2024 Shey-SREE BLANCHARD [facility] URO Second Fl Family History Problem Relation Age of Onset Fibromyalgia Mother Heart disease Father Hypertension Sister Polycystic kidney disease Sister Hypertension Brother Polycystic kidney disease Brother Family Status - Relation Status Age at Mother Father Sister Brother Level of Service:09155 [place] OFFICE/OUTPATIENT ESTABLISHED MOD MDM 30 MIN Reason for Visit and Comments: UTI [[id number]] - Recurrent chronic ecoli , has fibromyalgia and when that flairs up the UTI happens Normal [facility] CREATININE, URINE, RANDOMon 04-27-2024 Creatinine (U) [Mass/Vol] 142.0 mg/dL Normal 26-299 [facility] Comment on above: Performed By: #### L [id number] ####[facility] ([facility])[address] [place] [address] Follow-Upon 04-27-2024 Follow-Up [id number] Antonio Puri i 1975 F Date Provider Department Center 04/27/2024 124-MUNIRA PHAN TXP None Family History Problem Relation Age of Onset Fibromyalgia Mother Heart disease Father Hypertension Sister Polycystic kidney disease Sister Hypertension Brother Polycystic kidney disease Brother Family Status - Relation Status Age at Mother Father Sister Brother Level of Service:04105 [place] OFFICE/OUTPATIENT ESTABLISHED MOD MDM 30 MIN Reason for Visit and Comments: Kidney Follow-up [[id number]] - Pt states she keeps getting a continuous UTI has been going on for months, has been on many antibiotics. Last Friday pt did a urine and it came back clean. Pt states previous urine sample came back with E.Coli at family doctor. Pt wanted to know if potassium can be decreased to 10 mg because they are smaller pills. Normal [facility] PROTEIN, URINE, RANDOMon Protein (U) [Mass/Vol] 51.7 mg/dL [facility] Comment on above: Result Comment: Ther e are no established reference values for random urine specimens. Performed By: #### L [id number] #### [facility] ([employer]) [address] [place] [address] URINALYSISon 04-27-2024 BILIRUBIN, TOTAL PRESENCE IN URINE Negative Normal Negative [facility] Comment on above: Performed By: #### L [id number] #### [facility] ([facility]) [address] [place] [address] Clarity (U) Slightly Cloudy Abnormal Clear [facility] Comment on above: Performed By: #### L [id number] #### [facility] ([facility]) [address] [place] [address] Color (U) Yellow Normal Yellow [facility] Comment on above: Performed By: #### L [id number] #### [facility] ([facility]) [address] [place] [address] Glucose (U) [Mass/Vol] Negative Normal Negative Un [facility] Comment on above: Performed By: #### L [id number] #### [facility] ([facility]) [address] [place] [address] HEMOGLOBIN PRESENCE IN URINE Small Abnormal Negative [facility] Comment on above: Performed By: #### L [id number] #### [facility] ([facility]) [address] [place] [address] Ketones Ql (U) Negative Normal Negative [facility] Comment on above: Performed By: #### L [id number] #### [facility] ([facility]) [address] [place] [address] LEUKOCYTE ESTERASE PRESENCE IN URINE BY TEST STRIP Large Abnormal Negative [facility] Comment on above: Performed By: #### L [id number] #### [facility] ([facility]) [address] [place] [address] NITRITE PRESENCE IN URINE Positive Abnormal Negative [facility] Comment on above: Performed By: #### L [id number] #### [facility] ([facility]) [address] [place] [address] pH (U) 6.0 [pH] Normal 5.0-8.0 [facility] Comment on above: Performed By: #### L [id number] #### [facility] ([facility]) [address] [place] [address] Protein (U) [Mass/Vol] 100 mg/dL Abnormal Negative Un [facility] Comment on above: Performed By: #### L [id number] #### [facility] (BEAKER) [address] [place] [address] Specific gravity (U) [Rel density] 1.012 Low 1.015-1.020 [facility] Comment on above: Performed By: #### L [id number] #### [facility] (BEAKER) [address] [place] [address] URINALYSIS MICROSCOPICon CASTS IN URINE Normal [facility] Comment on above: Performed By: #### L [id number] #### [facility] (BEAKER) [address] [place] [address] CRYSTALS IN URINE Normal [facility] Comment on above: Performed By: #### L [id number] #### [facility] (BEAK[facility]) [address] [place] [address] MUCUS (#/HPF) IN URINE SEDIMENT Occasional Normal None Seen, Occasional, Few [facility] Comment on above: Performed By: #### L [id number] #### [facility] ([facility]) [address] [place] [address] RBC (#/HPF) IN URINE SEDIMENT 11-20 Abnormal None Seen [facility] Comment on above: Performed By: #### L [id number] #### [facility] (BE[facility]) [address] [place] [address] SQUAMOUS EPITHELIAL CELLS (#/HPF) IN URINE SEDIMENT Moderate Abnormal None Seen, Occasional [facility] Comment on above: Performed By: #### L [id number] #### [facility] ([facility]) [address] [place] [address] WBC (LEUKOCYTE) (#/HPF) IN URINE SEDIMENT >100 Abnormal None Seen [facility] Comment on above: Performed By: #### L [id number] #### [facility] ([facility]) [address] [place] [address] URINE CULTURE, ROUTINEon Bacteria identified Cx Nom (U) ESCHERICHIA COLI Abnormal [facility] Comment on above: Result Comment: >100 ,000 CFU/Ml Escherichia coli Susceptibility to Follow Performed By: #### L [id number] ####[facility] ([facility])[address] [place] [address] BILIRUBIN, DIRECTon 04-23-20 Magnesium [Mass/Vol] 0.0 mg/dL Normal 0-0.2 [facility] Comment on above: Performed By: #### L [id number] #### [facility] ([facility]) [address] [place] [address] CBC WITH AUTO DIFFERENTIALon 04-23-2024 Basophils (Bld) [#/Vol] 0.05 10*3/uL Normal 0.00-0.20 [facility] Comment on above: Performed By: #### L [id number] #### [facility] ([facility]) [address] [place] [address] Basophils/100 WBC (Bld) 0.6 % Normal 0.0-1.0 [facility] Comment on above: Performed By: #### L [id number] #### [facility] ([facility]) [address] [place] [address] Eosinophils (Bld) [#/Vol] 0.17 10*3/uL Normal 0.00-0.50 [facility] Comment on above: Performed By: #### L [id number] #### [facility] ([facility]) [address] [place] [address] Eosinophils/100 WBC (Bld) 1.9 % Normal 0.0-6.0 [facility] Comment on above: Performed By: #### L [id number] #### [facility] ([facility]) [address] [place] [address] Erythrocyte distribution width (RBC) [Ratio] 15.7 % High 11.5-15.0 [facility] Comment on above: Performed By: #### L [id number] #### [facility] ([facility]) [address] [place] [address] ERYTHROCYTE MEAN CORPUSCULAR HEMOGLOBIN CONCENTRATION (G/DL) BY AUTOMATED 32.7 g/dL Normal 32.0-35.0 [facility] Comment on above: Performed By: #### L [id number] #### [facility] ([facility]) [address] [place] [address] Hematocrit (Bld) [Volume fraction] 39.2 % Normal 36.0-48.0 [facility] Comment on above: Performed By: #### L [id number] #### [facility] ([facility]) [address] [place] [address] Hemoglobin (Bld) [Mass/Vol] 12.8 g/dL Normal 12.0-15.0 [facility] Comment on above: Performed By: #### L [id number] #### [facility] ([facility]) [address] [place] [address] Immature granulocytes (Bld) [#/Vol] 0.06 10*3/uL Normal 0.00-0.20 [facility] Comment on above: Performed By: #### L [id number] #### [facility] ([facility]) [address] [place] [address] Immature granulocytes/100 WBC (Bld) 0.7 % Normal 0.0-1.0 [facility] Comment on above: Performed By: #### L [id number] #### [facility] ([facility]) [address] [place] [address] Lymphocytes (Bld) [#/Vol] 1.27 10*3/uL Normal 1.20-4.00 [facility] Comment on above: Performed By: #### L [id number] #### [facility] ([facility]AK[facility]) [address] [place] [address] Lymphocytes/100 WBC (Bld) 14.5 % Low 20.0-45.0 [facility] Comment on above: Performed By: #### L [id number] #### [facility] ([facility]) [address] [place] [address] MCH (RBC) [Entitic mass] 27.7 pg Normal 27.0-33.0 [facility] Comment on above: Performed By: #### L [id number] #### [facility] ([facility]) [address] [place] [address] MCV (RBC) [Entitic vol] 84.8 fL Normal 82.0-98.0 [facility] Comment on above: Performed By: #### L [id number] #### [facility] ([facility]) [address] [place] [address] Monocytes (Bld) [#/Vol] 0.40 10*3/uL Normal 0.10-1.00 [facility] Comment on above: Performed By: #### L [id number] #### [facility] ([facility]) [address] [place] [address] Monocytes/100 WBC (Bld) 4.6 % Low 5.0-12.0 [facility] Comment on above: Performed By: #### L [id number] #### [facility] ([facility]) [address] [place] [address] Neutrophils (Bld) [#/Vol] 6.82 10*3/uL Normal 1.60-7.60 [facility] Comment on above: Performed By: #### L [id number] #### [facility] ([facility]) [address] [place] [address] Neutrophils/100 WBC (Bld) 77.7 % High 40.0-72.0 [facility] Comment on above: Performed By: #### L [id number] #### [facility] ([facility]) [address] [place] [address] NRBC (PER 100 WBCS) BY AUTOMATED COUNT 0.0 % Normal 0 [facility] Comment on above: Performed By: #### L [id number] #### [facility] ([facility]) [address] [place] [address] PLATELETS (10*3/UL) IN BLOOD AUTOMATED COUNT 337 10*3/uL Normal 150-400 [facility] Comment on above: Performed By: #### L [id number] #### [facility] ([facility]) [address] [place] [address] RBC (Bld) [#/Vol] 4.62 10*6/uL Normal 3.80-5.00 [facility] Comment on above: Performed By: #### L [id number] #### [facility] ([facility]) [address] [place] [address] WBC (Bld) [#/Vol] 8.77 10*3/uL Normal 4.00-10.60 [facility] Comment on above: Performed By: #### L [id number] #### [facility] ([facility]) [address] [place] [address] COMPREHENSIVE METABOLIC PANE Jonathan 04-23-2024 Albumin [Mass/Vol] 4.4 g/dL Normal 3.5-5.7 [facility] Comment on above: Performed By: #### L [id number] #### [facility] ([facility]) [address] [place] [address] ALP [Catalytic activity/Vol] 74 U/L Normal 34-104 [facility] Comment on above: Performed By: #### L [id number] #### [facility] ([facility]) [address] [place] [address] ALT [Catalytic activity/Vol] 9 U/L Normal 7-52 [facility] Comment on above: Performed By: #### L [id number] #### [facility] ([facility]) [address] [place] [address] Anion gap [Moles/Vol] 13 mmol/L Normal 7-20 [facility] Comment on above: Performed By: #### L [id number] #### [facility] ([facility]) [address] [place] [address] AST [Catalytic activity/Vol] 14 U/L Normal 13-39 [facility] Comment on above: Performed By: #### L [id number] #### [facility] (BEAKER) [address] [place] [address] Bilirubin [Mass/Vol] 0.4 mg/dL Normal 0.3-1.0 [facility] Comment on above: Performed By: #### L [id number] #### [facility] ([facility]) [address] [place] [address] Calcium [Mass/Vol] 9.4 mg/dL Normal 8.6-10.3 [facility] Comment on above: Performed By: #### L [id number] #### [facility] ([facility]) [address] [place] [address] Chloride [Moles/Vol] 104 mmol/L Normal 98-107 [facility] Comment on above: Performed By: #### L [id number] #### [facility] ([facility]) [address] [place] [address] CO2 [Moles/Vol] 25 mmol/L Normal 21-31 [facility] Comment on above: Performed By: #### L [id number] #### [facility] ([facility]) [address] [place] [address] Creatinine [Mass/Vol] 1.09 mg/dL Normal 0.60-1.20 [facility] Comment on above: Performed By: #### L [id number] #### [facility] ([facility]) [address] [place] [address] GLOMERULAR FILTRATION RATE ML/MIN/1.73 SQ M.PREDICTED 62.7 mL/min/1.73m*2 Normal >60.0 [facility] Comment on above: Result Comment: The [facility]???s estimated glomerular filtration rate (eGFR) [...] group of individuals. Performed By: #### L [id number] #### [facility] ([facility]) [address] [place] [address] Glucose [Mass/Vol] 108 mg/dL High 70-100 [facility] Comment on above: Performed By: #### L [id number] #### [facility] ([facility]) [address] [place] [address] Potassium [Moles/Vol] 3.5 mmol/L Normal 3.5-5.1 [facility] Comment on above: Performed By: #### L [id number] #### [facility] ([facility]) [address] [place] [address] Protein [Mass/Vol] 7.6 g/dL Normal 6.0-8.3 [facility] Comment on above: Performed By: #### L [id number] #### [facility] ([facility]) [address] [place] [address] Sodium [Moles/Vol] 138 mmol/L Normal 136-145 [facility] Comment on above: Performed By: #### L [id number] #### [facility] ([facility]) [address] [place] [address] Urea nitrogen [Mass/Vol] 13 mg/dL Normal 7-25 [facility] Comment on above: Performed By: #### L [id number] #### [facility] ([facility]) [address] [place] [address] UREA NITROGEN/CREATININE (MASS RATIO) IN SER/PLAS 11.9 Normal [facility] Comment on above: Performed By: #### L [id number] #### [facility] ([facility]) [address] [place] [address] HEMOGLOBIN A1Con 04-23-2024 Glucose [Mass/Vol] 105 mg/dL Normal [facility] Comment on above: Performed By: #### L [id number] #### [facility] ([facility]) [address] [place] [address] HbA1c (Bld) [Mass fraction] 5.3 % Normal 4.0-6.0 [facility] Comment on above: Performed By: #### L [id number] #### [facility] ([facility]) [address] [place] [address] LIPID PANELon 04-23-2024 CHOL/HDL 4.0 mg/dL Normal [facility] Comment on above: Performed By: #### L [id number] #### [facility] ([facility]) [address] [place] [address] Cholesterol [Mass/Vol] 182 mg/dL Normal 120-200 [facility] Comment on above: Performed By: #### L [id number] #### [facility] ([facility]) [address] [place] [address] Magnesium [Mass/Vol] 166 mg/dL High 40-149 [facility] Comment on above: Result Comment: TRIG LYCERIDE REFERENCE RANGE: 20 YEARS AND OLDER CARDIOVASCULAR RISK LESS THAN 150 mg/dL LOW RISK 150 TO 199 mg/dL BORDERLINE RISK 200 mg/dL AND GREATER HIGH RISK Performed By: #### L [id number] #### [facility] ([facility]) [address] [place] [address] Magnesium [Mass/Vol] 103 mg/dL Normal 0-160 [facility] Comment on above: Performed By: #### L [id number] #### [facility] ([facility]) [address] [place] [address] Magnesium [Mass/Vol] 46 mg/dL Normal 23-92 [facility] Comment on above: Performed By: #### L [id number] #### [facility] ([facility]) [address] [place] [address] NON HDL CHOL. (LDL+VLDL) 136 Normal [facility] Comment on above: Performed By: #### L [id number] #### [facility] ([facility]) [address] [place] [address] TOTAL VLDL-C 33 mg/dL Normal 0-40 [facility] Comment on above: Performed By: #### L [id number] #### [facility] ([facility]) [address] [place] [address] Labon 04-23-2024 Lab [id number] Antonio Puri i 1975 F Date Provider Department Center 04/23/2024 [id number]-[id number] OPD LAB RESOURCE [facility] OPD [facility] Family History Problem Relation Age of Onset Fibromyalgia Mother Heart disease Father Hypertension Sister Polycystic kidney disease Sister Hypertension Brother Polycystic kidney disease Brother Family Status - Relation Status Age at Mother Father Sister Brother Normal [facility] MAGNESIUMon 04-23-2024 Magnesium [Mass/Vol] 1.8 mg/dL Low 1.9-2.7 [facility] Comment on above: Performed By: #### L [id number] #### [facility] ([facility]) [address] [place] [address] PHOSPHORUSon 04-23-2024 Magnesium [Mass/Vol] 2.8 mg/dL Normal 2.5-5.0 [facility] Comment on above: Performed By: #### L [id number] #### [facility] ([facility]) [address] [place] [address] TACROLIMUS LEVELon Tacrolimus (Bld) [Mass/Vol] 10.5 ng/mL Normal 5.0-20.0 [facility] Comment on above: Result Comment: The [employer] Tacrolimus assay is a delayed one-step immunoassay for the quantitative determination of tacrolimus in human whole blood using the chemiluminescent microparticle immunoassay (CMIA) technology with flexible assay protocols, referred to as Chemiflex. Performed By: #### L [id number] #### [facility] ([facility]) [address] [place] [address] URIC ACIDon 04-23-2024 Magnesium [Mass/Vol] 4.0 mg/dL Normal 2.3-6.6 [facility] Comment on above: Performed By: #### L [id number] #### [facility] ([facility]) [address] [place] [address] URINALYSISon 04-23-2024 BILIRUBIN, TOTAL PRESENCE IN URINE Negative Normal Negative [facility] Comment on above: Performed By: #### L [id number] #### [facility] ([facility]) [address] [place] [address] Clarity (U) Cloudy Abnormal Clear [facility] Comment on above: Performed By: #### L [id number] #### [facility] ([facility]) [address] [place] [address] Color (U) Yellow Normal Yellow [facility] Comment on above: Performed By: #### L [id number] #### [facility] ([facility]) [address] [place] [address] Glucose (U) [Mass/Vol] Negative Normal Negative [facility] Comment on above: Performed By: #### L [id number] #### [facility] ([facility]) [address] [place] [address] HEMOGLOBIN PRESENCE IN URINE Negative Normal Negative [facility] Comment on above: Performed By: #### L [id number] #### [facility] ([facility]) [address] [place] [address] Ketones Ql (U) Negative Normal Negative [facility] Comment on above: Performed By: #### L [id number] #### [facility] ([facility]) [address] [place] [address] LEUKOCYTE ESTERASE PRESENCE IN URINE BY TEST STRIP Negative Normal Negative [facility] Comment on above: Performed By: #### L [id number] #### [facility] ([facility]) [address] [place] [address] NITRITE PRESENCE IN URINE Negative Normal Negative [facility] Comment on above: Performed By: #### L [id number] #### [facility] ([facility]) [address] [place] [address] pH (U) 7.0 [pH] Normal 5.0-8.0 [facility] Comment on above: Performed By: #### L [id number] #### [facility] ([facility]) [address] [place] [address] Protein (U) [Mass/Vol] Negative Normal Negative [facility] Comment on above: Performed By: #### L [id number] #### [facility] ([facility]) [address] [place] [address] Specific gravity (U) [Rel density] 1.011 Low 1.015-1.020 [facility] Comment on above: Performed By: #### L [id number] #### [facility] ([facility]) [address] [place] [address] URINALYSIS MICROSCOPICon AMORPHOUS CRYSTALS (#/HPF) IN URINE Few Abnormal None Seen [facility] Comment on above: Performed By: #### L [id number] #### [facility] ([facility]) [address] [place] [address] CASTS IN URINE Normal [facility] Comment on above: Performed By: #### L [id number] #### [facility] ([facility]) [address] [place] [address] CRYSTALS IN URINE Normal [facility] Comment on above: Performed By: #### L [id number] #### [facility] ([facility]) [address] [place] [address] MUCUS (#/HPF) IN URINE SEDIMENT Occasional Normal None Seen, Occasional, Few [facility] Comment on above: Performed By: #### L [id number] #### [facility] ([facility]) [address] [place] [address] RBC (#/HPF) IN URINE SEDIMENT 3-5 Abnormal None Seen [facility] Comment on above: Performed By: #### L [id number] #### [facility] ([facility]) [address] [place] [address] SQUAMOUS EPITHELIAL CELLS (#/HPF) IN URINE SEDIMENT Many Abnormal None Seen, Occasional [facility] Comment on above: Performed By: #### L [id number] #### [facility] ([facility]) [address] [place] [address] WBC (LEUKOCYTE) (#/HPF) IN URINE SEDIMENT 3-5 Abnormal None Seen [facility] Comment on above: Performed By: #### L [id number] #### [facility] ([facility]) [address] [place] [address] URINE CULTURE, ROUTINEon Bacteria identified Cx Nom (U) <10,000 CFU/ML No Significant Growth Normal [facility] Comment on above: Performed By: #### L [id number] #### [facility] ([facility]) [address] [place] [address] US RENAL COMPLETEon 04-14-20 24 US RENAL COMPLETE EXAM: Renal Ultrasou nd with Doppler: REASON FOR EXAM: Polycystic kidneys. COMPARISON: None. TECHNIQUE: Real-time ultrasonographic evaluation of the kidneys is performed with color flow Doppler. FINDINGS: There is a transplanted right kidney. Right kidney: Numerous hughes right renal cysts. No hydronephrosis. Left kidney: Numerous hughes left renal cysts. No hydronephrosis. Uniform and [...] report is generated using voice recognition reporting ([employer]). On occasion Xi'an [email or web address] erroneously drops words from the report or replaces the spoken word with similar sounding words. Please call with any questions/concerns regarding this report.* Dictated and transcribed 04/14/2024/heriberto This report has been electronically signed and approved by the interpreting radiologist. Electronically Signed René Raymond M.D. 2024-04-14 16:31:56 Normal Not Available Urine Cultureon 03-15-2024 Bacteria identified Cx Nom (U) ORGANISM: Escherichia coli (MDRO) (O:ESCCOLMDRO) [place] Count >100,000 Aerobic CODI Charge (NMIC56) - [...] RESISTANT TO ALL B-LACTAM DRUGS. PERFORMED BY: [place] [address] PATHOLOGIST SOLDER MAKING LABORER ANAHY MCKEE M.D. Normal [facility] Comment on above: Performed By: #### C UU #### [address] Documentationon 03-03-2024 Documentation [id number] Antonio Puri i 1975 F Date Provider Department Center 03/03/2024 JOSE [place] None Family History Problem Relation Age of Onset Fibromyalgia Mother Heart disease Father Hypertension Sister Polycystic kidney disease Sister Hypertension Brother Polycystic kidney disease Brother Family Status - Relation Status Age at Mother Father Sister Brother Normal [facility] PAPITO Antinuclear Antibodieson 11-06-2023 Antinuclear Abs, IFA Negative Normal . [facility] Comment on above: Result Comment: Nega tive <1:80 Borderline 1:80 Positive >1:80 ICAP nomenclature: AC-0 For more information about Hep-2 cell patterns use ANApatterns.org, the official website for the International Consensus on Antinuclear Antibody (PAPITO) Patterns (ICAP). Performed at: [facility] [address] [id number] [employer] Machine Operator: Gabriel Whitman PhD, Phone: [phone] PERFORMED BY: [facility] [address] [place] [address] PATHOLOGIST SOLDER MAKING LABORER ANAHY MCKEE M.D. Performed By: #### C BC, CMP, CK, CRP, ESR ####[facility] [id number]#### PAPITO ####[facility] , Alanine aminotransferase [En zymatic activity/volume] in Serum or PlasmaOrdered By: Perri Ceja on 11-06-2023 ALT [Catalytic activity/Vol] 20 U/L Normal 7-52 [facility] Comment on above: Performed By: #### C BC, CMP, CK, CRP, ESR ####[facility] [id number]#### PAPITO ####[facility] , Albumin [Mass/volume] in Ser um or Plasma by Bromocresol green (BCG) dye binding methoOrdered By: Perri Ceja on 11-06-2023 Albumin BCG dye [Mass/Vol] 4.7 g/dL 3.5-5.7 [facility] Alkaline phosphatase [Enzyma tic activity/volume] in Serum or PlasmaOrdered By: Perri Ceja on 11-06-2023 ALP [Catalytic activity/Vol] 96 U/L Normal 34-104 [facility] Comment on above: Performed By: #### C BC, CMP, CK, CRP, ESR ####[address]#### P[place]ITO ####[facility] , Aspartate aminotransferase [ Enzymatic activity/volume] in Serum or PlasmaOrdered By: Perri Ceja on 11-06-2023 AST [Catalytic activity/Vol] 16 U/L Normal 13-39 [facility] Comment on above: Performed By: #### C BC, CMP, CK, CRP, ESR ####[address]#### P[place]O ####[facility] , Automated basophil %Ordered By: Perri Ceja on 11-06-2023 Basophils/100 WBC (Bld) 0.7 % Normal . [facility] Comment on above: Performed By: #### C BC, CMP, CK, CRP, ESR ####[address]#### P[place]O ####[facility] , Automated basophil countOrde red By: Perri Ceja on 11-06-2023 Basophils (Bld) [#/Vol] 0.1 10*3/uL Normal 0.0-0.2 [facility] Comment on above: Performed By: #### C BC, CMP, CK, CRP, ESR ####[place] [address] [place]#### PAPITO ####[facility] , Automated blood monocyte cou ntOrdered By: Perri Ceja on 11-06-2023 Monocytes (Bld) [#/Vol] 0.6 10*3/uL Normal 0.0-0.8 [facility] Comment on above: Performed By: #### C BC, CMP, CK, CRP, ESR ####[place] [address] [place]#### PAPITO ####[facility] , Automated eosinophil %Ordere d By: Perri Ceja on 11-06-2023 Eosinophils/100 WBC (Bld) 3.0 % Normal . [facility] Comment on above: Performed By: #### C BC, CMP, CK, CRP, ESR ####[place] [address] [place]#### PAPITO ####[facility] , Automated eosinophil countOr dered By: Perri eCja on 11-06-2023 Eosinophils (Bld) [#/Vol] 0.3 10*3/uL Normal 0.0-0.45 [facility] Comment on above: Performed By: #### C BC, CMP, CK, CRP, ESR ####[place] [address] [place]#### PAPITO ####[facility] , Automated monocyte %Ordered By: Perri Ceja on 11-06-2023 Monocytes/100 WBC (Bld) 6.6 % Normal . [facility] Comment on above: Performed By: #### C BC, CMP, CK, CRP, ESR ####[address]#### P[place]ITO ####[facility] , Automated neutrophil %Ordere d By: Perri Ceja on 11-06-2023 Neutrophils/100 WBC (Bld) 72.1 % Normal . [facility] Comment on above: Performed By: #### C BC, CMP, CK, CRP, ESR ####[place] [address] [place]#### PAPITO ####[facility] , Bilirubin.total [Mass/volume ] in Serum or PlasmaOrdered By: Perri Ceja on 11-06-2023 Bilirubin [Mass/Vol] 0.4 mg/dL Normal 0.3-1.0 [facility] Comment on above: Performed By: #### C BC, CMP, CK, CRP, ESR ####[address]#### P[place]ITO ####[facility] , C reactive protein [Mass/vol ume] in Serum or PlasmaOrdered By: Perri Ceja on 11-06-2023 CRP [Mass/Vol] 2.0 mg/dL 0.0-0.5 [facility] C-Reactive Proteinon 024 C-Reactive Protein 2.0 mg/dL High 0.0-0.5 [facility] Comment on above: Result Comment: PERF ORMED BY: [facility] [address] [place] [address] PATHOLOGIST SOLDER MAKING LABORER ANAHY MCKEE M.D. Performed By: #### C BC, CMP, CK, CRP, ESR ####[address]#### P[place]ITO ####[facility] , Calcium [Mass/volume] in Ser um or PlasmaOrdered By: Perri Ceja on 11-06-2023 Calcium [Mass/Vol] 10.3 mg/dL Normal 8.6-10.3 [facility] Comment on above: Performed By: #### C BC, CMP, CK, CRP, ESR ####[place] [address] [place]#### PAPITO ####[facility] , Carbon dioxide, total [Moles /volume] in Serum or PlasmaOrdered By: Perri Ceja on 11-06-2023 CO2 [Moles/Vol] 26.1 mmol/L Normal 21.0-31.0 [facility] Comment on above: Performed By: #### C BC, CMP, CK, CRP, ESR ####[address]#### P[place]O ####[facility] , Chloride [Moles/volume] in S aislinn or PlasmaOrdered By: Perri Ceja on 11-06-2023 Chloride [Moles/Vol] 104 mmol/L Normal 98-107 [facility] Comment on above: Performed By: #### C BC, CMP, CK, CRP, ESR ####[address]#### [place]O ####[facility] , Complete Blood Count Auto Di ffon 11-06-2023 Mean Corpuscular HGB Conc 33.6 g/dL Normal 32.0-35.0 [facility] Comment on above: Performed By: #### C BC, CMP, CK, CRP, ESR ####[address]#### P[place]ITO ####[facility] , NRBC% 0.1 /100{WBC} Normal 0-0.5 [facility] Comment on above: Performed By: #### C BC, CMP, CK, CRP, ESR ####[address]#### P[place]O ####[facility] , Comprehensive Metabolic Pane jonathan 11-06-2023 Albumin [Mass/Vol] 4.7 g/dL Normal 3.5-5.7 [facility] Comment on above: Performed By: #### C BC, CMP, CK, CRP, ESR ####[place] [address] [place]#### PAPITO ####[facility] , GFR/1.73 sq M.predicted MDRD (S/P/Bld) [Vol rate/Area] 57.919 mL/min/{1.73_m2} Normal [facility] Comment on above: Performed By: #### C BC, CMP, CK, CRP, ESR ####[place] [address] [place]#### PAPITO ####[facility] , Creatine kinase [Enzymatic a ctivity/volume] in Serum or PlasmaOrdered By: Perri Ceja on 11-06-2023 CK [Catalytic activity/Vol] 30 U/L Normal 30-223 [facility] Comment on above: Result Comment: PERF ORMED BY: [address] [place] [address] PATHOLOGIST SOLDER MAKING LABORER ANAHY MCKEE M.D. Performed By: #### C BC, CMP, CK, CRP, ESR ####[address]#### [place] ####[facility] , Creatinine [Mass/volume] in Serum or PlasmaOrdered By: Perri Ceja on 11-06-2023 Creatinine [Mass/Vol] 1.17 mg/dL Normal 0.60-1.20 [facility] Comment on above: Performed By: #### C BC, CMP, CK, CRP, ESR ####[address]#### P[place]O ####[facility] , Erythrocyte Sedimentation Ra mathieu 11-06-2023 ESR (Bld) [Velocity] 49 mm/h High 0-19 [facility] Comment on above: Result Comment: PERF ORMED BY: [address] [place] [address] PATHOLOGIST SOLDER MAKING LABORER ANAHY MCKEE M.D. Performed By: #### C BC, CMP, CK, CRP, ESR ####[place] [address] [place]#### PAPITO ####[facility] , Erythrocyte distribution wid th [Ratio] by Automated countOrdered By: Perri Ceja on 11-06-2023 Erythrocyte distribution width (RBC) [Ratio] 15.3 % Normal 11.9-15.3 [facility] Comment on above: Performed By: #### C BC, CMP, CK, CRP, ESR ####[place] [address] [place]#### PAPITO ####[facility] , Erythrocyte sedimentation ra te by Photometric methodOrdered By: Perri Ceja on 11-06-2023 ESR Photometric method (Bld) [Velocity] 49 mm/hr 0-19 [facility] Erythrocytes [#/volume] in B lood by Automated countOrdered By: Perri Ceja on 11-06-2023 RBC (Bld) [#/Vol] 4.60 10*6/uL Normal 3.60-5.00 [facility] Comment on above: Performed By: #### C BC, CMP, CK, CRP, ESR ####[facility]#### P[place]O ####[facility] , Glucose [Mass/volume] in Ser um or PlasmaOrdered By: Perri Ceja on 11-06-2023 Glucose [Mass/Vol] 91 mg/dL Normal 70-100 [facility] Comment on above: ADA recommended refe rence rangeRandom Glucose Reference Range is dependent on time and content of last meal. Glucose of more than 200 mg/dL in a nonstressed, ambulatory subject supports the diagnosis of Diabetes Mellitus. Result Comment: [place] om Glucose Reference Range is dependent on time and content of last meal. Glucose of more than 200 mg/dL in a nonstressed, ambulatory subject supports the diagnosis of Diabetes Mellitus. ADA recommended reference range Performed By: #### C BC, CMP, CK, CRP, ESR ####[facility] [place] [address] [place]#### PAPITO ####[facility] , Hematocrit [Volume Fraction] of Blood by Automated countOrdered By: Perri Ceja on 11-06-2023 Hematocrit (Bld) [Volume fraction] 38.9 % Normal 34.0-46.4 [facility] Comment on above: Performed By: #### C BC, CMP, CK, CRP, ESR ####[facility] [place] [address] [place]#### PAPITO ####[facility] , Hemoglobin [Mass/volume] in BloodOrdered By: Perri Ceja on 11-06-2023 Hemoglobin (Bld) [Mass/Vol] 13.1 g/dL Normal 11.8-15.4 [facility] Comment on above: Performed By: #### C BC, CMP, CK, CRP, ESR ####[place] [address] [address]#### P[place]O ####[facility] , Leukocytes [#/volume] correc noah for nucleated erythrocytes in Blood by Automated counOrdered By: Perri Ceja on 11-06-2023 WBC corrected for nucl RBC Auto (Bld) [#/Vol] 8.8 10*3/uL 3.8-11.6 [facility] Leukocytes [#/volume] in Blo od by Automated countOrdered By: Perri Ceja on 11-06-2023 WBC (Bld) [#/Vol] 8.8 10*3/uL Normal 3.8-11.6 [facility] Comment on above: Performed By: #### C BC, CMP, CK, CRP, ESR ####[place] [address] [place]#### PAPITO ####[facility] , Lymphocytes [#/volume] in Bl ood by Automated countOrdered By: Perri Ceja on 11-06-2023 Lymphocytes (Bld) [#/Vol] 1.5 10*3/uL Normal 1.00-4.8 [facility] Comment on above: Performed By: #### C BC, CMP, CK, CRP, ESR ####[place] [id number] [place]#### PAPITO ####[facility] , Lymphocytes/100 leukocytes i n Blood by Automated countOrdered By: Perri Ceja on 11-06-2023 Lymphocytes/100 WBC (Bld) 17.6 % Normal . [facility] Comment on above: Performed By: #### C BC, CMP, CK, CRP, ESR ####[address] [address] [place]#### PAPITO ####[facility] , MCH [Entitic mass] by Automa noah countOrdered By: Perri Ceja on 11-06-2023 MCH (RBC) [Entitic mass] 28.4 pg Normal 24.7-34.3 [facility] Comment on above: Performed By: #### C BC, CMP, CK, CRP, ESR ####[address]#### [place] ####[facility] , MCHC Auto (RBC) [Mass/Vol]Or dered By: Perri Ceja on 11-06-2023 MCHC (RBC) [Mass/Vol] 33.6 g/dL 32.0-35.0 [facility] MCV [Entitic volume] by Auto mated countOrdered By: Perri Ceja on 11-06-2023 MCV (RBC) [Entitic vol] 84.6 fL Normal 80-100 [facility] Comment on above: Performed By: #### C BC, CMP, CK, CRP, ESR ####[address]#### [place] ####[facility] , Neutrophils [#/volume] in Bl ood by Automated countOrdered By: Perri Ceja on 11-06-2023 Neutrophils (Bld) [#/Vol] 6.3 10*3/uL Normal 1.8-7.7 [facility] Comment on above: Performed By: #### C BC, CMP, CK, CRP, ESR ####[address]#### [place] ####[facility] , No Panel InformationOrdered By: Perri Ceja on 11-06-2023 Estimated GFR (CKD-EPI) 57.919 mL/Min [facility] Creatinine Clearance (Chem N/A [facility] Nucleated erythrocytes [Pres ence] in Blood by Automated countOrdered By: Perri Ceja on 11-06-2023 Nucleated RBC Auto Ql (Bld) 0.1 /100{WBC} 0-0.5 [facility] Platelet mean volume [Entiti c volume] in Blood by Automated countOrdered By: Perri Ceja on 11-06-2023 Platelet mean volume (Bld) [Entitic vol] 6.9 fL Normal 6.3-10.7 [facility] Comment on above: Performed By: #### C BC, CMP, CK, CRP, ESR ####[address]#### [place] ####[facility] , Platelets [#/volume] in Bloo d by Automated countOrdered By: Perri Ceja on 11-06-2023 Platelets (Bld) [#/Vol] 393 10*3/uL Normal 150-450 [facility] Comment on above: Performed By: #### C BC, CMP, CK, CRP, ESR ####[address]#### [place] ####[facility] , Potassium [Moles/volume] in Serum or PlasmaOrdered By: Perri Ceja on 11-06-2023 Potassium [Moles/Vol] 3.8 mmol/L Normal 3.5-5.1 [facility] Comment on above: Performed By: #### C BC, CMP, CK, CRP, ESR ####[address]#### [place] ####[facility] , Protein [Mass/volume] in Ser um or PlasmaOrdered By: Perri Ceja on 11-06-2023 Protein [Mass/Vol] 7.7 g/dL Normal 6.4-8.9 [facility] Comment on above: Performed By: #### C BC, CMP, CK, CRP, ESR ####[address]#### [place] ####[facility] , Serum globulin measurement b y calculation (mass/volume)Ordered By: Perri Ceja on 11-06-2023 Globulin (S) [Mass/Vol] 3.0 g/dL Normal [facility] Comment on above: Performed By: #### C BC, CMP, CK, CRP, ESR ####[address]#### [place] ####[facility] , Serum or plasma albumin/glob ulin mass ratioOrdered By: Perri Ceja on 11-06-2023 Albumin/Globulin [Mass ratio] 1.6 {ratio} Normal [facility] Comment on above: Performed By: #### C BC, CMP, CK, CRP, ESR ####[address]#### [place] ####[facility] , Serum or plasma anion gap de terminationOrdered By: Perri Ceja on 11-06-2023 Anion gap [Moles/Vol] 12.7 mmol/L Normal 6.0-15.0 [facility] Comment on above: Performed By: #### C BC, CMP, CK, CRP, ESR ####[address]#### [place] ####[facility] , Sodium [Moles/volume] in Ser um or PlasmaOrdered By: Perri Ceja on 11-06-2023 Sodium [Moles/Vol] 139 mmol/L Normal 136-145 [facility] Comment on above: Performed By: #### C BC, CMP, CK, CRP, ESR ####[place] [address] [place]#### [place] ####[facility] , Urea nitrogen [Mass/volume] in Serum or PlasmaOrdered By: Perri Ceja on 11-06-2023 Urea nitrogen [Mass/Vol] 17 mg/dL Normal 7-25 [facility] Comment on above: Performed By: #### C BC, CMP, CK, CRP, ESR ####[facility] [id number] [id number] [facility]#### [place] ####[facility] , PTH INTACTon 07-30-2022 PTH, Intact 107 pg/mL Critically high 15-65 [facility] Comment on above: Performed By: #### M G, URIC, RENAL #### [facility] [address] [address] [address] Hari Palmer FERRITINon 07-29-2022 Ferritin [Mass/Vol] 194.0 ng/mL Critically high 6.2-137.0 [facility] Comment on above: Performed By: #### M G, URIC, RENAL #### [facility] [address] [place] [address] Dr. Hari Palmer HEMOGRAM AND PLATELon 2021 Hematocrit (Bld) [Volume fraction] 32.8 % Critically low 36.0-48.0 [facility] Comment on above: Performed By: #### M G, URIC, RENAL #### [facility] [address] [place] [address] Dr. Hari Palmer Hemoglobin (Bld) [Mass/Vol] 10.8 g/dL Critically low 12.0-16.0 [facility] Comment on above: Performed By: #### M G, URIC, RENAL #### [facility] [address] [place] [address] Dr. Hari Palmer MCH (RBC) [Entitic mass] 31.7 pg Normal 26.7-34.0 [facility] Comment on above: Performed By: #### M G, URIC, RENAL #### [facility] [address] [place] [address] Dr. Hari Palmer MCHC (RBC) [Mass/Vol] 32.9 g/dL Normal 29.9-35.2 [facility] Comment on above: Performed By: #### M G, URIC, RENAL #### [facility] [address] [place] [address] Dr. Hari Palmer MCV (RBC) [Entitic vol] 96.2 fL Normal 81.0-99.0 [facility] Comment on above: Performed By: #### M G, URIC, RENAL #### [facility] [address] [address] [address] Hari Palmer PLT 297 103/ul Normal 150-450 [facility] Comment on above: Performed By: #### M G, URIC, RENAL #### [facility] [address] [address] [address] Hari Palmer RBC 3.41 106/ul Critically low 4.20-5.40 [facility] Comment on above: Performed By: #### M G, URIC, RENAL #### [facility] [address] [address] [address] Hari Palmer WBC 7.1 103/ul Normal 4.0-11.0 [facility] Comment on above: Performed By: #### M G, URIC, RENAL #### [facility] [address] [place] [address] Dr. Hari Palmer IRON AND TIBCon 07-29-2022 % SATURATION 19.0 % Normal [facility] Comment on above: Performed By: #### M G, URIC, RENAL #### [facility] [address] [address] [address] Hari Palmer Iron [Mass/Vol] 48.0 ug/dL Critically low 50.0-170.0 [facility] Comment on above: Performed By: #### M G, URIC, RENAL #### [facility] [address] [address] [address] Hari Palmer TIBC DIRECT 252.0 ug/dL Normal 250.0-450.0 [facility] Comment on above: Performed By: #### M G, URIC, RENAL #### [facility] [address] [address] [address] Hari Palmer MAGNESIUMon 07-29-2022 Magnesium [Mass/Vol] 2.0 mg/dL Normal 1.8-2.4 [facility] Comment on above: Performed By: #### M G, URIC, RENAL #### [facility] [address] [place] [address] Dr. Hari Palmer RENAL FUNCTION PANELon 07-29 Albumin [Mass/Vol] 3.6 g/dL Normal 3.4-5.0 [facility] Comment on above: Performed By: #### M G, URIC, RENAL #### [facility] [address] [place] [address] Dr. Hari Palmre Calcium [Mass/Vol] 8.7 mg/dL Normal 8.5-10.1 [facility] Comment on above: Performed By: #### M G, URIC, RENAL #### [facility] [address] [place] [address] Dr. Hari Palmer Chloride [Moles/Vol] 104 mmol/L Normal 98-107 [facility] Comment on above: Performed By: #### M G, URIC, RENAL #### [facility] [address] [place] [address] Dr. Hari Palmer CO2 [Moles/Vol] 21.8 mmol/L Normal 21.0-32.0 [facility] Comment on above: Performed By: #### M G, URIC, RENAL #### [facility] [address] [place] [address] Dr. Hari Palmer Creatinine [Mass/Vol] 3.83 mg/dL Critically high 0.55-1.02 [facility] Comment on above: Performed By: #### M G, URIC, RENAL #### [facility] [address] [place] [address] Dr. Hari Palmer EGFR-AF TOGOLESE 15 mL/min/1.73m2 Critically low >=60 [facility] Comment on above: Performed By: #### M G, URIC, RENAL #### [facility] [address] [place] [address] Dr. Hari Palmer EGFR-NON AF TOGOLESE 13 mL/min/1.73m2 Critically low >=60 [facility] Comment on above: Performed By: #### M G, URIC, RENAL #### [facility] [address] [place] [address] Dr. Hari Palmer Glucose [Mass/Vol] 108 mg/dL Critically high 74-106 [facility] Comment on above: Performed By: #### M G, URIC, RENAL #### [facility] [address] [place] [address] Dr. Hari Palmer Phosphate [Mass/Vol] 5.4 mg/dL Critically high 2.6-4.7 [facility] Comment on above: Performed By: #### M G, URIC, RENAL #### [facility] [address] [place] [address] Dr. Hari Palmer Potassium [Moles/Vol] 3.9 mmol/L Normal 3.5-5.1 [facility] Comment on above: Performed By: #### M G, URIC, RENAL #### [facility] [address] [place] [address] Dr. Hari Palmer Sodium [Moles/Vol] 137 mmol/L Normal 136-145 [facility] Comment on above: Performed By: #### M G, URIC, RENAL #### [facility] [address] [place] [address] Dr. Hari Palmer Urea nitrogen [Mass/Vol] 47.0 mg/dL Critically high 7.0-18.0 [facility] Comment on above: Performed By: #### M G, URIC, RENAL #### [facility] [address] [place] [address] Dr. Hari Palmer URIC ACID SERUMon 07-29-2022 Urate [Mass/Vol] 6.3 mg/dL Critically high 2.6-6.0 [facility] Comment on above: Performed By: #### M G, URIC, RENAL #### [facility] [address] [place] [address] Dr. Hari Palmer URINE T PROTEIN CREAT RATIOo n 07-29-2022 Protein (U) [Mass/Vol] 29.7 mg/dL Critically high <=12.0 [facility] Comment on above: Performed By: #### M G, URIC, RENAL #### [facility] [address] [place] [address] Dr. Hari Palmer UR PROT CREAT RAT 0.56 Normal [facility] Comment on above: Performed By: #### M G, URIC, RENAL #### [facility] [address], [place] [address] Dr. Hari Palmer URINE CREAT 53.35 mg/dL Normal 20.00-300.00 [facility] Comment on above: Performed By: #### M Edy, URIC, RENAL #### [facility] [address], [place] [address] Dr. Hari Palmer VITAMIN D 25 OHon 07-29-2022 VIT D 25-OH 38.8 ng/mL Normal [facility] Comment on above: Performed By: #### M G, URIC, RENAL #### [facility] [address], [place] [address] Dr. Hari Palmer VIT D RANGES SEE BELOW Normal [facility] Comment on above: Result Comment: <20 ng/mL Vit D deficient 20 - <30 ng/mL Vit D insufficient 30 - 100 ng/mL Vit D sufficient >100 ng/mL Potential Toxicity Performed By: #### M Edy, URIC, RENAL #### [facility] [address] [address] [address] Hari Palmer Albumin [Mass/volume] in Ser um or PlasmaOrdered By: Stanley Forman on 06-20-2022 Albumin [Mass/Vol] 3.9 g/dL 3.2-5.5 [facility] Basophils Auto (Bld) [#/Vol] Ordered By: Stanley Forman on 06-20-2022 Basophils (Bld) [#/Vol] 0.1 10*3/uL 0.0-0.2 [facility] Basophils/100 WBC Auto (Bld) Ordered By: Stanley Forman on 06-20-2022 Basophils/100 WBC (Bld) 0.7 % . [facility] Blood hemoglobin measurement (mass/volume)Ordered By: Stanley Forman on 06-20-2022 Hemoglobin (Bld) [Mass/Vol] 10.8 g/dL 11.8-15.4 [facility] Blood leukocytes automated c ount (number/volume)Ordered By: Stanley Forman on 06-20-2022 WBC (Bld) [#/Vol] 11.8 10*3/uL 4.5-11.0 [facility] C reactive protein [Mass/vol ume] in Serum or PlasmaOrdered By: Stanley Forman on 06-20-2022 CRP [Mass/Vol] 5.2 mg/dL 0.0-1.0 [facility] Creatinine and Glomerular fi ltration rate.predicted panel (S/P/Bld)Ordered By: Stanley Forman on 06-20-2022 Creatinine [Mass/Vol] 4.49 mg/dL 0.44-1.03 [facility] Eosinophils Auto (Bld) [#/Vo l]Ordered By: Stanley Forman on 06-20-2022 Eosinophils (Bld) [#/Vol] 0.4 10*3/uL 0.0-0.45 [facility] Eosinophils/100 WBC Auto (Bl d)Ordered By: Stanley Forman on 06-20-2022 Eosinophils/100 WBC (Bld) 3.2 % . [facility] Erythrocyte distribution wid th Auto (RBC) [Ratio]Ordered By: Stanley Forman on 06-20-2022 Erythrocyte distribution width (RBC) [Ratio] 14.0 % 11.9-15.3 [facility] Erythrocyte sedimentation ra te by Photometric methodOrdered By: Stanley Forman on 06-20-2022 ESR Photometric method (Bld) [Velocity] 67 mm/hr 0-19 [facility] Estimated glomerular filtrat ion rate (GFR) non- AmericanOrdered By: Stanley Forman on 06-20-2022 GFR/1.73 sq M.predicted among non-blacks MDRD (S/P/Bld) [Vol rate/Area] 11 mL/Min [facility] Globulin Calc (S) [Mass/Vol] Ordered By: Stanley Forman on 06-20-2022 Globulin (S) [Mass/Vol] 3.5 g/dL [facility] Hematocrit Auto (Bld) [Volum e fraction]Ordered By: Stanley Forman 06-20-2022 Hematocrit (Bld) [Volume fraction] 33.1 % 34.0-46.4 [facility] - Hematology and Cell countsOrdered By: Stanley Forman 06-20-2022 Nucleated RBC/100 WBC (Bld) [Ratio] 0.0 % 0-0.5 [facility] Lymphocytes Auto (Bld) [#/Vo l]Ordered By: Stanley Forman on 06-20-2022 Lymphocytes (Bld) [#/Vol] 1.5 10*3/uL 1.00-4.8 [facility] Lymphocytes/100 WBC Auto (Bl d)Ordered By: Stanley Forman on 06-20-2022 Lymphocytes/100 WBC (Bld) 12.3 % . [facility] MCH Auto (RBC) [Entitic mass ]Ordered By: Stanley Forman on 06-20-2022 MCH (RBC) [Entitic mass] 31.1 pg 24.7-34.3 [facility] MCHC Auto (RBC) [Mass/Vol]Or dered By: Stanley Forman on 06-20-2022 MCHC (RBC) [Mass/Vol] 32.5 g/dL 32.0-35.0 [facility] MCV Auto (RBC) [Entitic vol] Ordered By: Stanley Forman on 06-20-2022 MCV (RBC) [Entitic vol] 95.6 fL 80-100 [facility] Monocytes Auto (Bld) [#/Vol] Ordered By: Stanley Forman on 06-20-2022 Monocytes (Bld) [#/Vol] 0.5 10*3/uL 0.0-0.8 [facility] Monocytes/100 WBC Auto (Bld) Ordered By: Stanley Forman on 06-20-2022 Monocytes/100 WBC (Bld) 4.1 % . [facility] Neutrophils Auto (Bld) [#/Vo l]Ordered By: Stanley Forman on 06-20-2022 Neutrophils (Bld) [#/Vol] 9.4 10*3/uL 1.8-7.7 [facility] Neutrophils/100 WBC Auto (Bl d)Ordered By: Stanley Forman on 06-20-2022 Neutrophils/100 WBC (Bld) 79.7 % . [facility] No Panel InformationOrdered By: Stanley Forman on 06-20-2022 Estimated GFR () 13 mL/Min [facility] Comment on above: GFR estimated refere nce range: According to KDOQI guidelines, <60 ml/min/1.73m2 is sufficient to diagnose a patient with chronic kidney disease. Pharmacy Creatinine Clearance (Chem 16.48 [facility] Platelet mean volume Auto (B ld) [Entitic vol]Ordered By: Stanley Forman on 06-20-2022 Platelet mean volume (Bld) [Entitic vol] 7.0 fL 6.3-10.7 [facility] Platelets Auto (Bld) [#/Vol] Ordered By: Stanley Forman on 06-20-2022 Platelets (Bld) [#/Vol] 287 10*3/uL 150-450 [facility] Protein [Mass/volume] in Ser um or PlasmaOrdered By: Stanley Forman on 06-20-2022 Protein [Mass/Vol] 7.4 g/dL 6.1-7.9 [facility] RBC Auto (Bld) [#/Vol]Ordere d By: Stanley Forman on 06-20-2022 RBC (Bld) [#/Vol] 3.46 10*6/uL 3.60-5.00 [facility] Serum or plasma alanine cesar otransferase measurement without P-5'-P (enzymatic activiOrdered By: Stanley Forman on 06-20-2022 ALT No additional P-5'-P [Catalytic activity/Vol] 11 U/L 10-60 [facility] Serum or plasma albumin/glob ulin mass ratioOrdered By: Stanley Forman on 06-20-2022 Albumin/Globulin [Mass ratio] 1.1 {ratio} [facility] Serum or plasma alkaline gina sphatase measurement (enzymatic activity/volume)Ordered By: Stanley Forman on 06-20-2022 ALP [Catalytic activity/Vol] 82 U/L 32-92 [facility] Serum or plasma anion gap de terminationOrdered By: Stanley Forman on 06-20-2022 Anion gap [Moles/Vol] 16.2 mmol/L 6.0-15.0 [facility] Serum or plasma aspartate am inotransferase measurement (enzymatic activity/volume)Ordered By: Stanley Forman 06-20-2022 AST [Catalytic activity/Vol] 15 U/L 10-42 [facility] Serum or plasma calcium ge urement (mass/volume)Ordered By: Stanley Forman on 06-20-2022 Calcium [Mass/Vol] 9.3 mg/dL 8.2-10.2 [facility] Serum or plasma chloride lee surement (moles/volume)Ordered By: Stanley Forman on 06-20-2022 Chloride [Moles/Vol] 103 mmol/L 95-114 [facility] Serum or plasma glucose ge urement (mass/volume)Ordered By: Stanley Forman on 06-20-2022 Glucose [Mass/Vol] 75 mg/dL 70-100 [facility] Comment on above: ADA recommended refe rence rangeRandom Glucose Reference Range is dependent on time and content of last meal. Glucose of more than 200 mg/dL in a nonstressed, ambulatory subject supports the diagnosis of Diabetes Mellitus. Serum or plasma potassium me asurement (moles/volume)Ordered By: Stanley Forman on 06-20-2022 Potassium [Moles/Vol] 4.3 mmol/L 3.5-5.1 [facility] Serum or plasma sodium measu rement (moles/volume)Ordered By: Stanley Forman on 06-20-2022 Sodium [Moles/Vol] 135 mmol/L 136-146 [facility] Serum or plasma total biliru bin measurement (mass/volume)Ordered By: Stanley Forman on 06-20-2022 Bilirubin [Mass/Vol] 0.3 mg/dL 0.3-1.2 [facility] Serum or plasma total carbon dioxide measurement (moles/volume)Ordered By: Stanley Forman on 06-20-2022 CO2 [Moles/Vol] 20.1 mmol/L 22.0-30.0 [facility] Serum or plasma urea nitroge n measurement (mass/volume)Ordered By: Stanley Forman on 06-20-2022 Urea nitrogen [Mass/Vol] 42 mg/dL 9-23 [facility] COVID-19 Positive/NegativeOr dered By: Jesus Parham on 06-14-2022 SARS-CoV-2 (COVID-19) N gene AMBERLY+probe Ql (Resp) Negative Negative [facility] Comment on above: Testing for SARS-CoV -2 by RT-PCR This test was developed and its performance characteristics determined by [employer] ([employer]) and validated at the [facility]. This test has not been FDA [...] and its performance characteristics determined by [employer] ([employer] and validated at the [facility]. This test has not been FDA [...] (CA) 125 10.8 U/mL Normal 0.0-38.1 [facility] Comment on above: Result Comment: [employer] Electrochemiluminescence Immunoassay (ECLIA) . Values obtained with different assay methods or kits cannot be used interchangeably. Results cannot be interpreted as absolute evidence of the presence or absence of malignant disease. Performed By: #### M G, URIC, RENAL #### [facility] [address], [place] [address] Dr. Hari Palmer CEAon 06-08-2022 CEA 0.9 ng/mL Normal 0.0-4.7 [facility] Comment on above: Result Comment: Nons mokers <3.9 Smokers <5.6 . [employer] Electrochemiluminescence Immunoassay (ECLIA) . Values obtained with different assay methods or kits cannot be used interchangeably. Results cannot be interpreted as absolute evidence of the presence or absence of malignant disease. Performed By: #### C EA. #### [facility] [address], [place] [address] Dr. Hari Palmer Basophils Auto (Bld) [#/Vol] Ordered By: Jesus Parham on 06-05-2022 Basophils (Bld) [#/Vol] 0.0 10*3/uL 0.0-0.2 [facility] Basophils/100 WBC Auto (Bld) Ordered By: Jesus Parham on 06-05-2022 Basophils/100 WBC (Bld) 0.3 % . [facility] Blood hemoglobin measurement (mass/volume)Ordered By: Jesus Parham on 06-05-2022 Hemoglobin (Bld) [Mass/Vol] 12.0 g/dL 11.8-15.4 [facility] Blood leukocytes automated c ount (number/volume)Ordered By: Jesus Parham on 06-05-2022 WBC (Bld) [#/Vol] 8.5 10*3/uL 4.5-11.0 [facility] Creatinine and Glomerular fi ltration rate.predicted panel (S/P/Bld)Ordered By: Jesus Parham on 06-05-2022 Creatinine [Mass/Vol] 3.52 mg/dL 0.44-1.03 [facility] Eosinophils Auto (Bld) [#/Vo l]Ordered By: Jesus Parham on 06-05-2022 Eosinophils (Bld) [#/Vol] 0.2 10*3/uL 0.0-0.45 [facility] Eosinophils/100 WBC Auto (Bl d)Ordered By: Jesus Parham on 06-05-2022 Eosinophils/100 WBC (Bld) 2.7 % . [facility] Erythrocyte distribution wid th Auto (RBC) [Ratio]Ordered By: Jesus Parham on 06-05-2022 Erythrocyte distribution width (RBC) [Ratio] 14.2 % 11.9-15.3 [facility] Estimated glomerular filtrat ion rate (GFR) non- AmericanOrdered By: Jesus Parham on 06-05-2022 GFR/1.73 sq M.predicted among non-blacks MDRD (S/P/Bld) [Vol rate/Area] 14 mL/Min [facility] Hematocrit Auto (Bld) [Volum e fraction]Ordered By: Jesus Parham on 06-05-2022 Hematocrit (Bld) [Volume fraction] 35.8 % 34.0-46.4 [facility] - Hematology and Cell countsOrdered By: Jesus Parham on 06-05-2022 Nucleated RBC/100 WBC (Bld) [Ratio] 0.1 % 0-0.5 [facility] Lymphocytes Auto (Bld) [#/Vo l]Ordered By: Jesus Parham on 06-05-2022 Lymphocytes (Bld) [#/Vol] 1.6 10*3/uL 1.00-4.8 [facility] Lymphocytes/100 WBC Auto (Bl d)Ordered By: Jesus Parham on 06-05-2022 Lymphocytes/100 WBC (Bld) 19.3 % . [facility] MCH Auto (RBC) [Entitic mass ]Ordered By: Jesus Parham on 06-05-2022 MCH (RBC) [Entitic mass] 31.5 pg 24.7-34.3 [facility] MCHC Auto (RBC) [Mass/Vol]Or dered By: Jesus Parham on 06-05-2022 MCHC (RBC) [Mass/Vol] 33.3 g/dL 32.0-35.0 [facility] MCV Auto (RBC) [Entitic vol] Ordered By: Jesus Parham on 06-05-2022 MCV (RBC) [Entitic vol] 94.4 fL 80-100 [facility] Monocytes Auto (Bld) [#/Vol] Ordered By: Jesus Parham on 06-05-2022 Monocytes (Bld) [#/Vol] 0.3 10*3/uL 0.0-0.8 [facility] Monocytes/100 WBC Auto (Bld) Ordered By: Jesus Parham on 06-05-2022 Monocytes/100 WBC (Bld) 3.9 % . [facility] Neutrophils Auto (Bld) [#/Vo l]Ordered By: Jesus Parham on 06-05-2022 Neutrophils (Bld) [#/Vol] 6.2 10*3/uL 1.8-7.7 [facility] Neutrophils/100 WBC Auto (Bl d)Ordered By: Jesus Parham on 06-05-2022 Neutrophils/100 WBC (Bld) 73.8 % . [facility] No Panel InformationOrdered By: Jesus Parham on 06-05-2022 Estimated GFR () 17 mL/Min [facility] Comment on above: GFR estimated refere nce range: According to KDOQI guidelines, <60 ml/min/1.73m2 is sufficient to diagnose a patient with chronic kidney disease. Pharmacy Creatinine Clearance (Chem N/A [facility] Platelet mean volume Auto (B ld) [Entitic vol]Ordered By: Jesus Parham on 06-05-2022 Platelet mean volume (Bld) [Entitic vol] 7.3 fL 6.3-10.7 [facility] Platelets Auto (Bld) [#/Vol] Ordered By: Jesus Parham on 06-05-2022 Platelets (Bld) [#/Vol] 312 10*3/uL 150-450 [facility] RBC Auto (Bld) [#/Vol]Ordere d By: Jesus Parham on 06-05-2022 RBC (Bld) [#/Vol] 3.80 10*6/uL 3.60-5.00 [facility] Serum or plasma anion gap de terminationOrdered By: Jesus Parham on 06-05-2022 Anion gap [Moles/Vol] 15.1 mmol/L 6.0-15.0 [facility] Serum or plasma calcium ge urement (mass/volume)Ordered By: Jesus Parham on 06-05-2022 Calcium [Mass/Vol] 9.5 mg/dL 8.2-10.2 [facility] Serum or plasma chloride lee surement (moles/volume)Ordered By: Jesus Parham on 06-05-2022 Chloride [Moles/Vol] 106 mmol/L 95-114 [facility] Serum or plasma glucose ge urement (mass/volume)Ordered By: Jesus Parham on 06-05-2022 Glucose [Mass/Vol] 91 mg/dL 70-100 [facility] Comment on above: ADA recommended [...] 06-05-2022 Potassium [Moles/Vol] 4.4 mmol/L 3.5-5.1 [facility] Serum or plasma sodium measu rement (moles/volume)Ordered By: Jesus Parham on 06-05-2022 Sodium [Moles/Vol] 137 mmol/L 136-146 [facility] Serum or plasma total carbon dioxide measurement (moles/volume)Ordered By: Jesus Parham on 06-05-2022 CO2 [Moles/Vol] 20.3 mmol/L 22.0-30.0 [facility] Serum or plasma urea nitroge n measurement (mass/volume)Ordered By: Jesus Parham on 06-05-2022 Urea nitrogen [Mass/Vol] 38 mg/dL 9-23 [facility] PTH INTACTon 04-29-2022 PTH, Intact 191 pg/mL Critically high 15-65 [facility] Comment on above: Performed By: #### M G, URIC, RENAL #### [facility] [address] [address] [address] Hari Palmer VIT D 25-OH LABCORPon 2021 Vitamin D, 25-Hydroxy 33.6 ng/mL Normal 30.0-100.0 [facility] Comment on above: Result Comment: Ning min D deficiency has been defined by the [place] of [employer] and an Endocrine Society practice guideline as a level of serum 25-OH vitamin D less than 20 ng/mL (1,2). The Endocrine Society went on to further define vitamin D insufficiency as a level between 21 and 29 ng/mL (2). 1. IOM ([place] of [employer]). 2010. Dietary reference intakes for calcium and D. [place]: The National Academies Press. 2. Chantel MF, Landen BURGOS, Eliseo STEPHENS, et al. Evaluation, treatment, and prevention of vitamin D deficiency: an Endocrine Society clinical practice guideline. JCEM. 2010; 96(7):1911-30. Performed By: #### M Edy URIC, RENAL #### [facility] [address] [place] [address] Dr. Hari Palmer ABO AND RH TYPEon 04-27-2022 ABO and Rh group Nom (Bld) ABO Rh Typing O Rh Positive Normal [facility] Comment on above: Performed By: #### M G, URIC, RENAL #### [facility] [address] [place] [address] Dr. Hari Palmer FERRITINon 04-27-2022 Ferritin [Mass/Vol] 273.0 ng/mL Critically high 6.2-137.0 [facility] Comment on above: Performed By: #### M Edy URIC, RENAL #### [facility] [address] [place] [address] Dr. Hari Palmer HEMOGRAM AND PLATELon 2021 Hematocrit (Bld) [Volume fraction] 33.9 % Critically low 36.0-48.0 [facility] Comment on above: Performed By: #### M G URIC, RENAL #### [facility] [address] [place] [address] Dr. Hari Palmer Hemoglobin (Bld) [Mass/Vol] 11.4 g/dL Critically low 12.0-16.0 [facility] Comment on above: Performed By: #### M G URIC, RENAL #### [facility] [address] [place] [address] Dr. Hari Palmer MCH (RBC) [Entitic mass] 31.7 pg Normal 26.7-34.0 [facility] Comment on above: Performed By: #### M G, URIC, RENAL #### [facility] [address] [place] [address] Dr. Hari Palmer MCHC (RBC) [Mass/Vol] 33.6 g/dL Normal 29.9-35.2 [facility] Comment on above: Performed By: #### M Edy, URIC, RENAL #### [facility] [address] [place] [address] Dr. Hari Palmer MCV (RBC) [Entitic vol] 94.2 fL Normal 81.0-99.0 [facility] Comment on above: Performed By: #### M Edy URIC, RENAL #### [facility] [address] [place] [address] Dr. Hari Palmer PLT 333 103/ul Normal 150-450 [facility] Comment on above: Performed By: #### M Edy URIC, RENAL #### [facility] [address] [place] [address] Dr. Hari Palmer RBC 3.60 106/ul Critically low 4.20-5.40 [facility] Comment on above: Performed By: #### M Edy URIC, RENAL #### [facility] [address] [place] [address] Dr. Hrai Palmer WBC 9.7 103/ul Normal 4.0-11.0 [facility] Comment on above: Performed By: #### M Edy, URIC, RENAL #### [facility] [address] [place] [address] Dr. Hari Palmer IRON AND TIBCon 04-27-2022 % SATURATION 20.1 % Normal [facility] Comment on above: Performed By: #### M G, URIC, RENAL #### [facility] [address] [place] [address] Dr. Hari Palmer Iron [Mass/Vol] 57.0 ug/dL Normal 50.0-170.0 [facility] Comment on above: Performed By: #### M G, URIC, RENAL #### [facility] [address] [address] [address] Hari Palmer TIBC DIRECT 283.0 ug/dL Normal 250.0-450.0 [facility] Comment on above: Performed By: #### M G, URIC, RENAL #### [facility] [address] [place] [address] Dr. Hari Palmer MAGNESIUMon 04-27-2022 Magnesium [Mass/Vol] 2.1 mg/dL Normal 1.8-2.4 [facility] Comment on above: Performed By: #### R ENAL, URIC, MG #### [facility] [address] [place] [address] Dr. Hari Palmer RENAL FUNCTION PANELon 04-27 Albumin [Mass/Vol] 3.6 g/dL Normal 3.4-5.0 [facility] Comment on above: Performed By: #### R ENAL, URIC, MG #### [facility] [address] [place] [address] Dr. Hari Palmer Calcium [Mass/Vol] 9.0 mg/dL Normal 8.5-10.1 [facility] Comment on above: Performed By: #### R ENAL, URIC, MG #### [facility] [address] [place] [address] Dr. Hari Palmer Chloride [Moles/Vol] 104 mmol/L Normal 98-107 [facility] Comment on above: Performed By: #### R ENAL, URIC, MG #### [facility] [address] [address] [address] Hari Palmer CO2 [Moles/Vol] 23.0 mmol/L Normal 21.0-32.0 [facility] Comment on above: Performed By: #### R ENAL, URIC, MG #### [facility] [address] [place] [address] Dr. Hari Palmer Creatinine [Mass/Vol] 3.38 mg/dL Critically high 0.55-1.02 [facility] Comment on above: Performed By: #### R ENAL, URIC, MG #### [facility] [address] [address] [address] Hari Palmer EGFR-AF TOGOLESE 18 mL/min/1.73m2 Critically low >=60 [facility] Comment on above: Performed By: #### R ENAL, URIC, MG #### [facility] [address] [place] [address] Dr. Hari Palmer EGFR-NON AF TOGOLESE 15 mL/min/1.73m2 Critically low >=60 [facility] Comment on above: Performed By: #### R ENAL, URIC, MG #### [facility] [address] [place] [address] Dr. Hari Palmer Glucose [Mass/Vol] 113 mg/dL Critically high 74-106 [facility] Comment on above: Performed By: #### R ENAL, URIC, MG #### [facility] [address] [place] [address] Dr. Hari Palmer Phosphate [Mass/Vol] 4.4 mg/dL Normal 2.6-4.7 [facility] Comment on above: Performed By: #### R ENAL, URIC, MG #### [facility] [address] [place] [address] Dr. Hari Palmer Potassium [Moles/Vol] 4.0 mmol/L Normal 3.5-5.1 [facility] Comment on above: Performed By: #### R ENAL, URIC, MG #### [facility] [address] [place] [address] Dr. Hari Palmer Sodium [Moles/Vol] 137 mmol/L Normal 136-145 [facility] Comment on above: Performed By: #### R ENAL, URIC, MG #### [facility] [address] [place] [address] Dr. Hari Palmer Urea nitrogen [Mass/Vol] 44.0 mg/dL Critically high 7.0-18.0 [facility] Comment on above: Performed By: #### R ENAL, URIC, MG #### [facility] [address] [place] [address] Dr. Hari Palmer URIC ACID SERUMon 04-27-2022 Urate [Mass/Vol] 6.6 mg/dL Critically high 2.6-6.0 [facility] Comment on above: Performed By: #### R ENAL, URIC, MG #### [facility] [address] [address] [address] Hari Palmer URINE T PROTEIN CREAT RATIOo n 04-27-2022 Protein (U) [Mass/Vol] 31.4 mg/dL Critically high <=12.0 [facility] Comment on above: Performed By: #### M G, URIC, RENAL #### [facility] [address] [address] [address] Hari Palmer UR PROT CREAT RAT 0.55 Normal [facility] Comment on above: Performed By: #### M G, URIC, RENAL #### [facility] [address] [address] [address] Hari Palmer URINE CREAT 57.50 mg/dL Normal 20.00-300.00 [facility] Comment on above: Performed By: #### M G, URIC, RENAL #### [facility] [address] [place] [address] Dr. Hari Palmer ECHOCARDIO M/2D COMPLETEon 0 03-29-2022 ECHOCARDIO M/2D COMPLETE Patient: MANDEEP PURI Exam Date: 03/29/2022 : 1975 Gender:F Ordering : HAIDER FRENCH M.D. Admission #: [id number] Family : Order #: [id number] CLICK HERE TO VIEW EXAM ECHOCARDIOGRAM REPORT [...] Area(A4C): 17.00 cm2 Left Atrium Systolic Volume(A2C): 78400 mm3 Left Atrium Systolic Volume(A4C): 47339 mm3 Mitral Valve MV E to A Ratio: 0.80 Deceleration Sublette: 3210 mm/s2 Mitral Valve A-Wave Peak Velocity: [...] M.D. on 04/01/2022 at 12:33 Normal [facility] COVID-19 SOFIAOrdered By: Mary Beth Jones on 03-28-2022 SARS-CoV+SARS-CoV-2 (COVID-19) Ag IA.rapid Ql (Resp) Negative Negative [facility] Comment on above: This is a duplicate Ada SARS Antigen (GLORIA) result to be used for statistical tracking purpose only. No Panel InformationOrdered By: Shabbir Jones on 03-28-2022 SARS Antigen (LFIA) [facility] BLOOD TYPE AND RHon 02-13-20 ABO INTERPRETATION O Normal [facility] Comment on above: Performed By: #### 3 1397, 26051, 19884, 17830, 13547 #### [facility] [address] [facility] [place] [address], [facility] RH INTERPRETATION Positive Normal [facility] Comment on above: Performed By: #### 3 1397, 83478, 01554, 13674, 91324 #### [facility] [address] [facility] BNP (B-TYPE NATRIURETIC PEPT JOEL)on 02-12-2022 Natriuretic peptide B (Bld) [Mass/Vol] 10 pg/mL Normal 0-100 [facility] Comment on above: Result Comment: Give n the appropriate clinical setting a BNP result of >100 pg/mL indicates congestive heart failure. Performed By: #### 8 7663, 12806 #### [facility] [address] [place] [address], [facility] CBC W/DIFFon 02-12-2022 ABS IMM GRANS 0.2 10*3/uL Normal 0.0-0.2 [facility] Comment on above: Performed By: #### 3 1397, 28991, 02935, 43915, 65622 #### [facility] [address] [place] [address], [facility] ABS NEUTROPHILS 7.8 10*3/uL High 1.6-7.6 [facility] Comment on above: Performed By: #### 3 1397, 24434, 07959, 66012, 48182 #### [facility] [address] [place] [address], [facility] Basophils (Bld) [#/Vol] 0.1 10*3/uL Normal 0.0-0.2 [facility] Comment on above: Performed By: #### 3 1397, 59189, 89876, 60427, 98028 #### [facility] [address] [place] [address], [facility] Basophils/100 WBC (Bld) 0.6 % Normal 0.0-1.0 T marcelle [facility] Comment on above: Performed By: #### 3 1397, 57027, 82867, 61681, 58132 #### [facility] [address] [place] [address], [facility] Eosinophils (Bld) [#/Vol] 0.3 10*3/uL Normal 0.0-0.5 [facility] Comment on above: Performed By: #### 3 1397, 20443, 20477, 85163, 88176 #### [facility] [address] [place] [address], [facility] Eosinophils/100 WBC (Bld) 2.5 % Normal 0.0-6.0 [facility] Comment on above: Performed By: #### 3 1397, 38902, 41229, 98052, 48206 #### [facility] [address] [place] [address], [place] Erythrocyte distribution width (RBC) [Ratio] 13.6 % Normal 11.5-15.0 [facility] Comment on above: Performed By: #### 3 1397, 38687, 97805, 06554, 74709 #### [facility] [address] [place] [address], [place] Hematocrit (Bld) [Volume fraction] 34.5 % Low 36.0-45.0 [facility] Comment on above: Performed By: #### 3 1397, 87067, 02049, 65248, 52612 #### [facility] [address] [place] [address], [facility] Hemoglobin (Bld) [Mass/Vol] 11.3 g/dL Low 12.0-15.0 [facility] Comment on above: Performed By: #### 3 1397, 35071, 52769, 21080, 58625 #### [facility] [address] [facility] [place] [address], [facility] IMMATURE GRANS 1.4 % High 0.0-1.0 [facility] Comment on above: Performed By: #### 3 1397, 86046, 09833, 91862, 27380 #### [facility] [address] [facility] Lymphocytes (Bld) [#/Vol] 2.0 10*3/uL Normal 1.2-4.0 [facility] Comment on above: Performed By: #### 3 1397, 66033, 17198, 29473, 98620 #### [facility] [address] [facility] [place] [address], [facility] Lymphocytes/100 WBC (Bld) 18.6 % Low 20.0-45.0 [facility] Comment on above: Performed By: #### 3 1397, 53096, 51367, 83919, 28756 #### [facility] [address] [facility] MCH (RBC) [Entitic mass] 31.3 pg Normal 27.0-33.0 [facility] Comment on above: Performed By: #### 3 1397, 34356, 24519, 41270, 67592 #### [facility] [address] [place] [address], [facility] MCHC (RBC) [Mass/Vol] 32.8 g/dL Normal 32.0-35.0 [facility] Comment on above: Performed By: #### 3 1397, 36166, 18145, 97262, 03406 #### [facility] [address] [facility] [place] [address], [facility] MCV (RBC) [Entitic vol] 95.6 fL Normal 82.0-98.0 T he [facility] Comment on above: Performed By: #### 3 1397, 36547, 92635, 42230, 03658 #### [facility] [address] [facility] [place] [address], [facility] Monocytes (Bld) [#/Vol] 0.5 10*3/uL Normal 0.1-1.0 [facility] Comment on above: Performed By: #### 3 1397, 93673, 40336, 84562, 01177 #### [facility] [address] [facility]. [address] MONOS 4.9 % Low 5.0-12.0 [facility] Comment on above: Performed By: #### 3 1397, 28425, 55760, 65386, 91888 #### [facility] [address] [facility] [place] [address], [facility] Neutrophils/100 WBC (Bld) 72.0 % Normal 40.0-72.0 [facility] Comment on above: Performed By: #### 3 1397, 27276, 70459, 96317, 83755 #### [facility] [address] [facility] [place] [address], [facility] Nucleated RBC/100 WBC (Bld) [Ratio] 0 % Normal 0-0 [facility] Comment on above: Performed By: #### 3 1397, 16704, 61762, 34172, 62467 #### [facility] [address] [place] [address], [facility] PLAT CNT 315 10*3/uL Normal 150-400 [facility] Comment on above: Performed By: #### 3 1397, 14049, 93953, 29937, 47539 #### [address] [place] [address], [facility] RBC (Bld) [#/Vol] 3.61 10*6/uL Low 3.80-5.00 [facility] Comment on above: Performed By: #### 3 1397, 00019, 80734, 21456, 53143 #### [facility] [address] [facility] [place] [address], [facility] WBC (Bld) [#/Vol] 10.78 10*3/uL High 4.00-10.60 [facility] Comment on above: Performed By: #### 3 1397, 65315, 72563, 60965, 99879 #### [id number] [place] [address] CHEST AND LATERALon 02-13-20 CHEST AND LATERAL [facility] Department of Radiology [address] [place], [place] [id number] == Patient Name: MANDEEP PURI : 1975 [...] pathology. Electronically signed: Royal Dominguez. Transcribed by: [email or web address], User Resident: Electronically Signed by: ROYAL DOMINGUEZ @ 02/13/2022 11:48 AM Normal [facility] CMV IGG BLOODon 02-12-2022 CMV IGG 3.13 Normal [facility] Comment on above: Result Comment: NORM AL RANGES: < OR = 0.9O NEGATIVE ; NO DETECTABLE IgG ANTIBODY TO CMV 0.91 - 1.09 EQUIVOCAL; REPEAT TESTING SUGGESTED > OR = 1.10 POSITIVE ; INDICATES PRESENCE OF DETECTABLE IgG ANTIBODY TO CMV Performed By: #### 3 1397, 29526, 82468, 25658, 89166 #### [facility] [address] [place] [address], [facility] COMP METABOLIC PANELon 02-12 Albumin [Mass/Vol] 4.5 g/dL Normal 3.5-5.7 [facility] Comment on above: Performed By: #### 2 2505, 26872, 38470 #### [facility] [address] [place] [address], [facility] ALKALINE PHOSPH 89 IU/L Normal 34-104 [facility] Comment on above: Performed By: #### 2 2505, 38167, 28964 #### [facility] [address] [place] [address], [facility] ALT [Catalytic activity/Vol] 12 U/L Normal 7-52 [facility] Comment on above: Performed By: #### 2 2505, 93856, 25782 #### [facility] [address] [place] [address], [place] AST [Catalytic activity/Vol] 13 U/L Normal 13-39 [facility] Comment on above: Performed By: #### 2 2505, 17036, 27318 #### [facility] [address] [place] [address], [place] Bilirubin [Mass/Vol] 0.3 mg/dL Normal 0.3-1.0 [facility] Comment on above: Performed By: #### 2 2505, 46019, 37064 #### [facility] [address] [place] [address], [place] Calcium [Mass/Vol] 9.5 mg/dL Normal 8.6-10.3 [facility] Comment on above: Performed By: #### 2 2505, 06466, 58890 #### [facility] [address] [place] [address], [place] Chloride [Moles/Vol] 103 mmol/L Normal 98-107 [facility] Comment on above: Performed By: #### 2 2505, 91724, 18754 #### [facility] [address] [place] [address], [place] CO2 [Moles/Vol] 22 mmol/L Normal 21-31 [facility] Comment on above: Performed By: #### 2 2505, 09883, 74641 #### [facility] [address] [place] [address], [place] Creatinine [Mass/Vol] 3.51 mg/dL High 0.60-1.20 [facility] Comment on above: Performed By: #### 2 2505, 49223, 46658 #### [facility] [address] [place] [address], [place] eGFR- 17 ml/min/1.73sq m Abnormal >60 [facility] Comment on above: Performed By: #### 2 2505, 95485, 55707 #### [facility] [address] [place] [address], [place] eGFR- non- 14 ml/min/1.73sq m Abnormal >60 [facility] Comment on above: Performed By: #### 2 2505, 99050, 30531 #### [facility] [address] [place] [address], [place] Glucose [Mass/Vol] 100 mg/dL Normal 70-100 [facility] Comment on above: Performed By: #### 2 2505, , 31570 #### [facility] [address] [place] [address], [place] Potassium [Moles/Vol] 3.9 mmol/L Normal 3.5-5.1 [facility] Comment on above: Performed By: #### 2 2505, 15952, 82385 #### [facility] [address] [place] [address], [place] Protein [Mass/Vol] 8.0 g/dL Normal 6.0-8.3 [facility] Comment on above: Performed By: #### 2 2505, 84408, 01665 #### [facility] [address] [place] [address], [place] Sodium [Moles/Vol] 136 mmol/L Normal 136-145 [facility] Comment on above: Performed By: #### 2 2505, 29716, 08518 #### [facility] [address] [place] [address], [place] Urea nitrogen [Mass/Vol] 41 mg/dL High 7-25 [facility] Comment on above: Performed By: #### 2 2505, 12306, 45089 #### [facility] [address] [facility] [place] [address], [facility] CREATININE URINE RANDOMon Creatinine (U) [Mass/Vol] 63.0 mg/dL Normal [facility] Comment on above: Result Comment: Ther e are no established reference values for random urine specimens Performed By: #### 3 1397, 41762, 77503, 06262, 01417 #### [facility] [address] [facility] [place] [address], [facility] CT RENAL RECIPIENT ABDOMEN A ND PEVLIS WO CONTRASTon 02-12-2022 CT RENAL RECIPIENT ABDOMEN AND PEVLIS WO CONTRAST [facility] Department of Radiology [address] [place] [address] == Patient Name: MANDEEP PURI [...] achievable. Electronically signed: NAN SARAVIA. Transcribed by: [email or web address], User Resident: Electronically Signed by: NAN CANELAA @ 02/12/2022 02:59 PM Normal [facility] Comment on above: Order Comment: [...] Bilirubin.direct [Mass/Vol] 0.0 mg/dL Normal 0.0-0.2 [facility] Comment on above: Performed By: #### 2 7645, 16340, 16609 #### [facility] [address] [place] [address], [facility] BRETT LAGUERRE VIRUS ABon 02-03 EB VCA IGG 2.35 Normal [facility] Comment on above: Order Comment: CONSI STENT WITH PAST EBV INFECTION Result Comment: NORM AL RANGES: < OR = 0.9O NEGATIVE ; NO DETECTABLE IgG ANTIBODY TO EBV-VCA 0.91 - 1.09 EQUIVOCAL; REPEAT TESTING SUGGESTED > OR = 1.10 POSITIVE ; INDICATES PRESENCE OF DETECTABLE IgG ANTIBODY TO EBV Performed By: #### 3 1397, 38546, 25475, 27928, 79027 #### [facility] [address] [place] [address], [facility] EB VCA IGM 0.00 Normal [facility] Comment on above: Order Comment: CONSI STENT WITH PAST EBV INFECTION Result Comment: NORM AL RANGES: < OR = 0.9O NEGATIVE ; NO SIGNIFICANT LEVEL OF DETECTABLE EBV-VCA IgM AB 0.91 - 1.09 EQUIVOCAL; REPEAT TESTING SUGGESTED > OR = 1.10 POSITIVE ; SIGNIFICANT LEVEL OF DETECTABLE EBV-VCA IgM AB Performed By: #### 3 1397, 43523, 78747, 26184, 69032 #### [facility] [address] HEMOGLOBIN A1Con 02-12-2022 Glucose [Moles/Vol] 120 mmol/L Normal [facility] Comment on above: Performed By: #### 8 5123, 27739 #### [facility] 3000 [facility]. [address] HbA1c (Bld) [Mass fraction] 5.8 % Normal 4.0-6.0 [facility] Comment on above: Performed By: #### 8 5123, 51514 #### [facility] [address] [facility] [address] HEPATITIS A ANTIBODY IGMon 0 02-12-2022 HEP A AB IGM Non-Reactive Normal NONREACTIVE [facility] Comment on above: Performed By: #### 3 1397, 24980, 15863, 01620, 12276 #### [facility] 3000 [facility]. [address] HEPATITIS B CORE ANTIBODYon 02-12-2022 HEP B CORE AB Non-Reactive Normal NONREACTIVE [facility] Comment on above: Performed By: #### 3 1397, 18837, 63042, 94034, 29455 #### [facility] 3000 [facility]. [address] HEPATITIS B SURFACE ANTIBODY QUANTon 02-12-2022 HEP B SURF AB 1.14 mIU/ml Normal [facility] Comment on above: Result Comment: INTE RPRETATION: NONREACTIVE<8.00 mIU/mL INDETERMINATE8.00 - 12.00 mIU/mL REACTIVE>12 mIU/mL Performed By: #### 3 1397, 36307, 81253, 60526, 71465 #### [facility] [address] [facility]. [address] HEPATITIS B SURFACE ANTIGEN QUALon 02-12-2022 HEP B SURF AG QUAL Non-Reactive Normal NONREACTIVE [facility] Comment on above: Performed By: #### 3 1397, 29074, 96348, 03657, 31244 #### [facility] [address] [place], [place] [id number] [place] [address] HEPATITIS C ANTIBODYon 02-12 ANTI-HCV Non-Reactive Normal NONREACTIVE [facility] Comment on above: Performed By: #### 3 1397, 44519, 80255, 80359, 99667 #### [facility] [address] [place] [address], [facility] HIV1 AND 2 COMBO 4Gon 2021 HIV COMBO Negative Normal NEGATIVE [facility] Comment on above: Performed By: #### 3 1397, 06454, 00943, 54708, 88975 #### [facility] [address] [facility] [place] [place] [id number] [place] [address] HLA ABC CLASS I TYPINGon A*-1 EQUIVALENT 1 Normal [facility] Comment on above: Order Comment: [...] to frequency. Performed By: #### 3 1397, 12849, 03297, 29415, 71129 #### [facility] [address] [place] [address], [facility] A*-2 EQUIVALENT 2 Normal [facility] Comment on above: Order Comment: [...] to frequency. Performed By: #### 3 1397, 98265, 39486, 00575, 40915 #### [facility] [address] [facility] [place] [address], [facility] B*-1 EQUIVALENT 35 Normal [facility] Comment on above: Order Comment: [...] to frequency. Performed By: #### 3 1397, 42248, 26457, 86468, 89953 #### [facility] [address] [facility] [place] [address], [facility] B*-2 EQUIVALENT 37 Normal [facility] Comment on above: Order Comment: [...] to frequency. Performed By: #### 3 1397, 95640, 27860, 08914, 27610 #### [facility] [address] [facility] [place] [address], [facility] Bw*-1 EQUIVALENT 4 Normal [facility] Comment on above: Order Comment: [...] to frequency. Performed By: #### 3 1397, 03651, 84593, 41844, 64643 #### [facility] [address] [place] [address], [facility] Bw*-2 EQUIVALENT 6 Normal [facility] Comment on above: Order Comment: [...] to frequency. Performed By: #### 3 1397, 77854, 47021, 58479, 23022 #### [facility] [address] [place] [address], [facility] C*-1 EQUIVALENT 4 Normal [facility] Comment on above: Order Comment: [...] to frequency. Performed By: #### 3 1397, 38473, 65244, 44840, 94085 #### [facility] [address] [place] [address], [facility] C*-2 EQUIVALENT 6 Normal [facility] Comment on above: Order Comment: [...] to frequency. Performed By: #### 3 1397, 56649, 02826, 47861, 74961 #### [facility] [address] [place] [id number], [facility] METHOD Class I Typing by PCR-SSOP Luminex Normal [facility] Comment on above: Order [...] to frequency. Performed By: #### 3 1397, 54447, 65312, 81239, 81306 #### [facility] [address] SIGNED BY Normal [facility] Comment on above: Order Comment: [...] to frequency. Result Comment: Sree Noriega MS,CHT(DONA),MT(ASCP) Body Service Team Member, Transplant Immunology Performed By: #### 3 1397, 49699, 62527, 78651, 98131 #### [facility] [address] CLASS II TYPINGon DPB1*-1 EQUIVALENT 04:01 Normal [facility] Comment on above: Order [...] to frequency. Performed By: #### 3 1397, 66251, 21544, 37375, 29442 #### [facility] [address] [facility] [place] [address], [facility] DPB1*-2 EQUIVALENT 04:02 Normal [facility] Comment on above: Order Comment: [...] to frequency. Performed By: #### 3 1397, 57097, 24358, 80824, 59435 #### [facility] [address] [facility] [place] [address], [facility] DQA1*-1 EQUIVALENT 01 Normal [facility] Comment on above: Order Comment: [...] to frequency. Performed By: #### 3 1397, 01122, 28160, 50245, 65033 #### [facility] [address] [facility] [place] [address], [place] DQA1*-2 EQUIVALENT 05 Normal [facility] Comment on above: Order Comment: [...] to frequency. Performed By: #### 3 1397, 78129, 58929, 50385, 91606 #### [facility] [address] [facility] [place] [address], [facility] DQB1*-1 EQUIVALENT 7 Normal [facility] Comment on above: Order Comment: [...] to frequency. Performed By: #### 3 1397, 16062, 13609, 57712, 14045 #### [facility] [address] [facility] [place] [address], [facility] DQB1*-2 EQUIVALENT 5 Normal [facility] Comment on above: Order Comment: [...] to frequency. Performed By: #### 3 1397, 19667, 03980, 86809, 80528 #### [facility] [address] [facility] [place] [address], [facility] DRB1*-1 EQUIVALENT 10 Normal [facility] Comment on above: Order Comment: [...] to frequency. Performed By: #### 3 1397, 49735, 38055, 65109, 21451 #### [facility] [address] [facility] [place] [address], [facility] DRB1*-2 EQUIVALENT 11 Normal [facility] Comment on above: Order Comment: [...] to frequency. Performed By: #### 3 1397, 97848, 82212, 54216, 81199 #### [facility] [address] [place] [address], [facility] DRB3*-1 EQUIVALENT 52 Normal [facility] Comment on above: Order Comment: [...] to frequency. Performed By: #### 3 1397, 83646, 90741, 63633, 41908 #### [facility] [address] [facility] [place] [address], [facility] METHOD Class II Typing by PCR-SSOP Luminex Normal [facility] Comment on above: Order Comment: [...] to frequency. Performed By: #### 3 1397, 66882, 71661, 67520, 22243 #### [facility] [address] [place] [address], [place] LIPID PROFILEon 02-12-2022 Cholesterol [Mass/Vol] 221 mg/dL High 120-200 Th e [facility] Comment on above: Result Comment: CHOL ESTEROL REFERENCE RANGE: 20 YEARS AND OLDER CARDIOVASCULAR RISK Less than 200 mg/dl Low Risk 200 to 239 mg/dl Borderline Risk 240 mg/dl and greater High Risk Performed By: #### 3 1397, 40776, 42725, 53016, 68012 #### [facility] [address] [place] [address], [place] Cholesterol in HDL [Mass/Vol] 40 mg/dL Normal 23-92 [facility] Comment on above: Result Comment: Slig ht variation in normal range could be due to gender and/or age. HDL CHOLESTEROL REFERENCE RANGE: 20 years and older Cardiovascular Risk > or =60 mg/dL Desirable 40 TO 59 mg/dL Low Risk <40 mg/dL High Risk Performed By: #### 3 1397, 98173, 78073, 18264, 01241 #### [facility] [address] [place] [address], [place] Cholesterol in LDL [Mass/Vol] 101 mg/dL Normal 0-130 [facility] Comment on above: Result Comment: LDL IS A CALCULATION LDL IS ONLY VALID IF THE TRIG IS LESS THAN 400. Performed By: #### 3 1397, 30726, 38584, 86299, 82316 #### [facility] [address] [place] [address], [place] Cholesterol.total/Patt sterol in HDL [Mass ratio] 5.5 {ratio} High .0-4.5 [facility] Comment on above: Performed By: #### 3 1397, 78804, 42704, 28917, 04309 #### [facility] [address] [place] [address], [place] NON-HDL CHOLESTEROL 181 mg/dL Normal [facility] Comment on above: Performed By: #### 3 1397, 38230, 84889, 19733, 70146 #### [facility] [address] [place] [address], [facility] Triglyceride [Mass/Vol] 402 mg/dL High 40-149 T he [facility] Comment on above: Result Comment: TRIG LYCERIDE REFERENCE RANGE: 20 YEARS AND OLDER CARDIOVASCULAR RISK LESS THAN 150 mg/dl LOW RISK 150 TO 199 mg/dl BORDERLINE RISK 200 mg/dl AND GREATER HIGH RISK Performed By: #### 3 1397, 79087, 84858, 79152, 06230 #### [facility] [address] [place] [address], [facility] VLDL CHOL 80 mg/dL High 0-40 [facility] Comment on above: Performed By: #### 3 1397, 93797, 43261, 01086, 77820 #### [facility] [address] MUMPS IGG BLDon 02-12-2022 MUMPS IGG 5.46 Normal [facility] Comment on above: Result Comment: NORM AL RANGES: < OR = 0.9O NEGATIVE ; NO DETECTABLE IgG ANTIBODY TO MUMPS 0.91 - 1.09 EQUIVOCAL; REPEAT TESTING SUGGESTED > OR = 1.10 POSITIVE ; INDICATES PRESENCE OF DETECTABLE IgG ANTIBODY TO MUMPS Performed By: #### 3 1397, 08692, 03640, 83007, 86275 #### [facility] [address] RUBELLAon 02-12-2022 RUBELLA 4.79 Normal [facility] Comment on above: Result Comment: NORM AL RANGES: < OR = 0.9O NEGATIVE ; NO DETECTABLE IgG ANTIBODY TO RUBELLA 0.91 - 1.09 EQUIVOCAL; REPEAT TESTING SUGGESTED > OR = 1.10 POSITIVE ; INDICATES PRESENCE OF DETECTABLE IgG ANTIBODY TO RUBELLA VIRUS Performed By: #### 3 1397, 48013, 49054, 59657, 72534 #### [facility] [address] [place] [address], [facility] RUBEOLA MEASLES IGGon 2021 RUBEO IGG 6.43 Normal [facility] Comment on above: Result Comment: NORM AL RANGES: < OR = 0.9O NEGATIVE ; NO DETECTABLE IgG ANTIBODY TO RUBEOLA 0.91 - 1.09 EQUIVOCAL; REPEAT TESTING SUGGESTED > OR = 1.10 POSITIVE ; INDICATES PRESENCE OF DETECTABLE IgG ANTIBODY TO RUBEOLA Performed By: #### 3 1397, 00086, 18956, 49538, 77882 #### [facility] [address] SINGLE ANTIGEN CLASS 1on METHOD Class I Single Antigen Normal Th e [facility] Comment on above: Order Comment: [...] to frequency. Performed By: #### 3 1397, 04101, 02614, 78283, 27563 #### [facility] [address] SINGLE ANTIGEN CLASS 2on COMMENTS Normal [facility] Comment on above: Order Comment: [...] watch list. Performed By: #### 3 1397, 06099, 46454, 93439, 47073 #### [facility] [address] Result Comment: Clas s I Antigen Microbeads Potential specificites added to the watch list. CPRA 0 Normal [facility] Comment on above: Order Comment: [...] to frequency. Performed By: #### 3 1397, 46474, 90498, 11130, 22330 #### [facility] 3000 [facility]. [address] METHOD Class II Single Antigen Normal T he [facility] Comment on above: Order Comment: [...] to frequency. Performed By: #### 3 1397, 74272, 30660, 79931, 59544 #### [facility] [address] [facility] [place] [address], [facility] T PROT UR Yesy 02-12-2022 U TOTAL PROTEIN 44.0 mg/dL Normal [facility] Comment on above: Result Comment: Ther e are no established reference values for random urine specimens Performed By: #### 3 1397, 37395, 01142, 50499, 59439 #### [facility] [address] [place] [address], [facility] TB QUANTIFERON PLUSon 2021 MITOGEN MINUS NIL >10.00 Normal [facility] Comment on above: Performed By: #### 3 1592 #### [facility] [address] [place] [address], [facility] NIL 0.03 IU/mL Normal [facility] Comment on above: Performed By: #### 3 1592 #### [facility] [address] [place] [address], [place] TB QUANTIFERON Negative Normal NEGATIVE [facility] Comment on above: Result Comment: Jadiel tiferon TB Gold Interpretation (IU/mL): NEGATIVE: M. tuberculosis infection not likely. Nil: <=8.0 TB1 Antigen minus Nil ([id number]-MWT): <0.35 OR >=0.35; and <25% of Nil value. TB2 Antigen minus Nil ([id number]): <0.35 OR >=0.35; and <25% of Nil [...] (https://www.cdc.gov/tb/publications/guidlines/default.htm Performed By: #### 3 1592 #### [facility] [address] [place] [address], [place] TB1 AG 0.05 IU/mL Normal [facility] Comment on above: Performed By: #### 3 1592 #### [facility] [address] [place] [address], [place] TB1 AG MINUS NIL 0.02 IU/mL Normal [facility] Comment on above: Performed By: #### 3 1592 #### [facility] [address] [place] [address], [place] TB2 AG 0.05 IU/mL Normal [facility] Comment on above: Performed By: #### 3 1592 #### [facility] [address] [place] [address], [place] TB2 AG MINUS NIL 0.02 IU/mL Normal [facility] Comment on above: Performed By: #### 3 1592 #### [facility] [address] [place] [address], [facility] UA,MICROSCOPIC REQUIREDon Appearance (U) SL CLOUDY Abnormal CLEAR [facility] Comment on above: Performed By: #### 3 1397, 13485, 64068, 15871, 42651 #### [facility] [address] [place] [address], [facility] Bilirubin Ql (U) Negative Normal NEGATIVE [facility] Comment on above: Performed By: #### 3 1397, 20886, 13020, 68441, 87270 #### [facility] [address] [place] [address], [facility] Color (U) STRAW Abnormal YELLOW [facility] Comment on above: Performed By: #### 3 1397, 86969, 48688, 25903, 98384 #### [facility] [address] [facility] [place] [id number], [facility] EPIS MANY Abnormal FEW,OCC,NONE SEEN [facility] Comment on above: Performed By: #### 3 1397, 67176, 84898, 18068, 36692 #### [facility] [address] [place] [address], [facility] Glucose Ql (U) 50 mg/dL Abnormal NEGATIVE [facility] Comment on above: Performed By: #### 3 1397, 66905, 49776, 74505, 35555 #### [facility] [address] [place] [address], [facility] Hemoglobin Ql (U) Negative Normal NEGATIVE [facility] Comment on above: Performed By: #### 3 1397, 25316, 09287, 31591, 23225 #### [facility] [address] [place] [address], [facility] KETONE Negative Normal NEGATIVE [facility] Comment on above: Performed By: #### 3 1397, 41865, 10844, 00394, 76025 #### [facility] [address] [facility] [place] [address], [facility] LEUK MARYAN MODERATE Abnormal NEGATIVE [facility] Comment on above: Performed By: #### 3 1397, 95405, 82868, 28682, 87070 #### [facility] [address] [facility] [place] [address], [facility] Nitrite Ql (U) Negative Normal NEGATIVE [facility] Comment on above: Performed By: #### 3 1397, 30423, 63681, 29698, 10239 #### [facility] [address] [facility] [place] [address], [facility] pH (U) 7.0 [pH] Normal 5.0-8.0 [facility] Comment on above: Performed By: #### 3 1397, 15059, 16666, 10465, 06265 #### [facility] [address] [facility] [place] [address], [facility] Protein Ql (U) 30 mg/dL Abnormal NEGATIVE [facility] Comment on above: Performed By: #### 3 1397, 03556, 79760, 29528, 36444 #### [facility] 3000 [facility]. [address] RBC NONE SEEN Normal NONE SEEN [facility] Comment on above: Performed By: #### 3 1397, 94368, 08229, 36780, 27645 #### [facility] 3000 [facility]. [address] SPEC GRAV 1.009 Low 1.015-1.020 [facility] Comment on above: Performed By: #### 3 1397, 45909, 56999, 88586, 50840 #### [facility] [address] [facility] [place] [address], [facility] WBC UA 11-20 Abnormal NONE SEEN [facility] Comment on above: Performed By: #### 3 1397, 72207, 88067, 77286, 84745 #### [facility] [address] [place] [address], [facility] VARICELLA ZOSTER IGGon 02-12 VARICELLA IGG 3.29 Normal [facility] Comment on above: Result Comment: NORM AL RANGES: < OR = 0.9O NEGATIVE ; NO DETECTABLE IgG ANTIBODY TO VARICELLA-ZOSTER VIRUS 0.91 - 1.09 EQUIVOCAL; REPEAT TESTING SUGGESTED > OR = 1.10 POSITIVE ; INDICATES PRESENCE OF DETECTABLE IgG ANTIBODY TO VARICELLA-ZOSTER VIRUS Performed By: #### 3 1397, 08793, 76746, 22400, 16984 #### [facility] [address] [place] [address], [facility] PTH INTACTon 12-04-2021 PTH, Intact 165 pg/mL Critically high 15-65 [facility] Comment on above: Performed By: #### M Edy, URIC, RENAL #### [facility] [address] [place] [address] Dr. Hari Palmer FERRITINon 12-03-2021 Ferritin [Mass/Vol] 256.0 ng/mL Critically high 6.2-137.0 [facility] Comment on above: Performed By: #### M Edy URIC, RENAL #### [facility] [address] [place] [address] Dr. Hari Palmer HEMOGRAM AND PLATELon 2021 Hematocrit (Bld) [Volume fraction] 33.7 % Critically low 36.0-48.0 [facility] Comment on above: Performed By: #### M G, URIC, RENAL #### [facility] [address] [place] [address] Dr. Hari Palmer Hemoglobin (Bld) [Mass/Vol] 10.9 g/dL Critically low 12.0-16.0 [facility] Comment on above: Performed By: #### M G, URIC, RENAL #### [facility] [address] [place] [address] Dr. Hari Palmer MCH (RBC) [Entitic mass] 31.4 pg Normal 26.7-34.0 [facility] Comment on above: Performed By: #### M G, URIC, RENAL #### [facility] [address] [address] [address] Hari Palmer MCHC (RBC) [Mass/Vol] 32.3 g/dL Normal 29.9-35.2 [facility] Comment on above: Performed By: #### M G, URIC, RENAL #### [facility] [address] [place] [address] Dr. Hari Palmer MCV (RBC) [Entitic vol] 97.1 fL Normal 81.0-99.0 [facility] Comment on above: Performed By: #### M G, URIC, RENAL #### [facility] [address] [place] [address] Dr. Hari Palmer PLT 314 103/ul Normal 150-450 [facility] Comment on above: Performed By: #### M G, URIC, RENAL #### [facility] [address] [place] [address] Dr. Hari Palmer RBC 3.47 106/ul Critically low 4.20-5.40 [facility] Comment on above: Performed By: #### M G, URIC, RENAL #### [facility] [address] [place] [address] Dr. Hari Palmer WBC 9.4 103/ul Normal 4.0-11.0 [facility] Comment on above: Performed By: #### M G, URIC, RENAL #### [facility] [address] [place] [address] Dr. Hari Palmer IRON AND TIBCon 12-03-2021 % SATURATION 19.0 % Normal [facility] Comment on above: Performed By: #### M G, URIC, RENAL #### [facility] [address] [place] [address] Dr. Hari Palmer Iron [Mass/Vol] 52.0 ug/dL Normal 37.0-170.0 [facility] Comment on above: Performed By: #### M G, URIC, RENAL #### [facility] [address] [place] [address] Dr. Hari Palmer TIBC DIRECT 273.0 ug/dL Normal 261.0-497.0 [facility] Comment on above: Performed By: #### M G, URIC, RENAL #### [facility] [address] [place] [address] Dr. Hari Palmer MAGNESIUMon 12-03-2021 Magnesium [Mass/Vol] 2.1 mg/dL Normal 1.6-2.3 [facility] Comment on above: Performed By: #### M G, URIC, RENAL #### [facility] [address] [place] [address] Dr. Hari Palmer RENAL FUNCTION PANELon 12-03 Albumin [Mass/Vol] 3.6 g/dL Normal 3.5-5.0 [facility] Comment on above: Performed By: #### M G, URIC, RENAL #### [facility] [address] [place] [address] Dr. Hari Palmer Calcium [Mass/Vol] 8.4 mg/dL Normal 8.4-10.2 [facility] Comment on above: Performed By: #### M G, URIC, RENAL #### [facility] [address] [place] [address] Dr. Hari Palmer Chloride [Moles/Vol] 101 mmol/L Normal 98-107 [facility] Comment on above: Performed By: #### M G, URIC, RENAL #### [facility] [address] [place] [address] Dr. Hari Palmer CO2 [Moles/Vol] 24.3 mmol/L Normal 22.0-30.0 [facility] Comment on above: Performed By: #### M G, URIC, RENAL #### [facility] [address] [place] [address] Dr. Hari Palmer Creatinine [Mass/Vol] 3.32 mg/dL Critically high 0.52-1.04 [facility] Comment on above: Performed By: #### M G, URIC, RENAL #### [facility] [address] [place] [address] Dr. Hari Palmer EGFR-AF TOGOLESE 18 mL/min/1.73m2 Critically low >=60 [facility] Comment on above: Performed By: #### M G, URIC, RENAL #### [facility] [address] [address] [address] Hari Palmer EGFR-NON AF TOGOLESE 15 mL/min/1.73m2 Critically low >=60 [facility] Comment on above: Performed By: #### M G, URIC, RENAL #### [facility] [address] [address] [address] Hari Pamler Glucose [Mass/Vol] 119 mg/dL Critically high 74-106 [facility] Comment on above: Performed By: #### M G, URIC, RENAL #### [facility] [address] [address] [address] Hari Palmer Phosphate [Mass/Vol] 4.7 mg/dL Critically high 2.5-4.5 [facility] Comment on above: Performed By: #### M G, URIC, RENAL #### [facility] [address] [place] [address] Dr. Hari Palmer Potassium [Moles/Vol] 4.0 mmol/L Normal 3.4-5.0 [facility] Comment on above: Performed By: #### M G, URIC, RENAL #### [facility] [address] [address] [address] Hari Palmer Sodium [Moles/Vol] 135 mmol/L Critically low 137-145 [facility] Comment on above: Performed By: #### M G, URIC, RENAL #### [facility] [address] [address] [address] Hari Palmer Urea nitrogen [Mass/Vol] 42.0 mg/dL Critically high 7.0-17.0 [facility] Comment on above: Performed By: #### M G, URIC, RENAL #### [facility] [address] [address] [address] Hari Palmer UA RANDOM W/MICROSCOPICon BACTERIA TRACE Abnormal NONE SEEN [facility] Comment on above: Performed By: #### U AMIC #### [facility] [address] [address] [address] Hari Palmer Bilirubin Ql (U) Negative Normal NEGATIVE [facility] Comment on above: Performed By: #### U AMIC #### [facility] [address] [address] [address] Hari Palmer CAST NONE SEEN Normal NONE SEEN [facility] Comment on above: Performed By: #### U AMIC #### [facility] [address] [address] [address] Hari Palmer Clarity (U) CLEAR Normal CLEAR [facility] Comment on above: Performed By: #### U AMIC #### [facility] [address] [address] [address] Hari Palmer Color (U) LT. YELLOW Normal YELLOW [facility] Comment on above: Performed By: #### U AMIC #### [facility] [address] [place] [address] Dr. Hari Palmer Crystals LM Nom (Urine sed) NONE SEEN Normal NONE SEEN [facility] Comment on above: Performed By: #### U AMIC #### [facility] [address] [address] [address] Hari Palmer Epithelial cells LM Ql (Urine sed) FEW Abnormal NONE SEEN /RARE [facility] Comment on above: Performed By: #### U AMIC #### [facility] [address] [place] [address] Dr. Hari Palmer Glucose Ql (U) 100 mg/dl Abnormal NEGATIVE [facility] Comment on above: Performed By: #### U AMIC #### [facility] [address] [address] [address] Hari Palmer Hemoglobin Ql (U) TRACE-INTACT Abnormal NEGATIVE [facility] Comment on above: Performed By: #### U AMIC #### [facility] [address] [address] [address] Hari Palmer Ketones Ql (U) Negative Normal NEGATIVE [facility] Comment on above: Performed By: #### U AMIC #### [facility] [address] [place] [address] Dr. Hari Palmer LEUKOCYTES SMALL Abnormal NEGATIVE [facility] Comment on above: Performed By: #### U AMIC #### [facility] [address] [place] [address] Dr. Hari Palmer MUCOUS NONE SEEN Normal NONE SEEN [facility] Comment on above: Performed By: #### U AMIC #### [facility] [address] [address] [address] Hari Palmer Nitrite Ql (U) Negative Normal NEGATIVE [facility] Comment on above: Performed By: #### U AMIC #### [facility] [address] [address] [address] Hari Palmer pH (U) 6.0 [pH] Normal 5-9 [facility] Comment on above: Performed By: #### U AMIC #### [facility] [address] [address] [address] Hari Palmer RBC 0-2 Normal 0-2 [facility] Comment on above: Performed By: #### U AMIC #### [facility] [address] [place] [address] Dr. Hari Palmer SPEC GRAVITY 1.010 Normal 1.005-<=1.02 5 [facility] Comment on above: Performed By: #### U AMIC #### [facility] [address] [place] [address] Dr. Hari Palmer UA PROTEIN Negative Normal NEGATIVE/ TRACE [facility] Comment on above: Performed By: #### U AMIC #### [facility] [address] [place] [address] Dr. Hari Palmer Urobilinogen Qn (U) 0.2 {Janice'U}/dL Normal 0.2 - 1. 0 [facility] Comment on above: Performed By: #### U AMIC #### [facility] [address] [place] [address] Dr. Hari Palmer WBC 5-10 Abnormal NONE SEEN [facility] Comment on above: Performed By: #### U AMIC #### [facility] [address] [place] [address] Dr. Hari Palmer URIC ACID SERUMon 12-03-2021 Urate [Mass/Vol] 4.6 mg/dL Normal 2.5-6.2 [facility] Comment on above: Performed By: #### M G, URIC, RENAL #### [facility] [address] [place] [address] Dr. Hari Palmer URINE T PROTEIN CREAT RATIOo n 12-03-2021 Protein (U) [Mass/Vol] 31.7 mg/dL Critically high <=12.0 [facility] Comment on above: Performed By: #### M G, URIC, RENAL #### [facility] [address] [place] [address] Dr. Hari Palmer UR PROT CREAT RAT 0.54 Normal [facility] Comment on above: Performed By: #### M G, URIC, RENAL #### [facility] [address] [place] [address] Dr. Hari Palmer URINE CREAT 59.03 mg/dL Normal 20.00-300.00 [facility] Comment on above: Performed By: #### M G, URIC, RENAL #### [facility] [address] [place] [address] Dr. Hari Palmer VITAMIN D 25 OHon 12-03-2021 VIT D 25-OH 38.1 ng/mL Normal [facility] Comment on above: Performed By: #### M G, URIC, RENAL #### [facility] [address] [place] [address] Dr. Hari Palmer VIT D RANGES SEE BELOW Normal [facility] Comment on above: Result Comment: <20 ng/mL Vit D deficient 20 - <30 ng/mL Vit D insufficient 30 - 100 ng/mL Vit D sufficient >100 ng/mL Potential Toxicity Performed By: #### M G, URIC, RENAL #### [facility] [address] [place] [address] Dr. Hari Palmer PTH INTACTon 09-03-2021 PTH, Intact 177 pg/mL Critically high 15-65 [facility] Comment on above: Performed By: #### P THINT #### [facility] [address] [place] [address] Dr. Hari Palmer CBC AUTO DIFFon 09-01-2021 BASO # 0.1 103/ul Normal 0.0-0.1 [facility] Comment on above: Performed By: #### M G, URIC, RENAL #### [facility] [address] [place] [address] Dr. Hari Palmer Basophils/100 WBC (Bld) 0.6 % Normal 0.2-2.0 [facility] Comment on above: Performed By: #### M G, URIC, RENAL #### [facility] [address] [place] [address] Dr. Hari Palmer EO # 0.3 103/ul Normal 0.0-0.7 [facility] Comment on above: Performed By: #### M G, URIC, RENAL #### [facility] [address] [place] [address] Dr. Hari Palemr Eosinophils/100 WBC (Bld) 3.5 % Normal 0.9-7.0 [facility] Comment on above: Performed By: #### M G, URIC, RENAL #### [facility] [address] [place] [address] Dr. Hari Palmer Erythrocyte distribution width (RBC) [Ratio] 13.8 % Normal 11.0-15.0 [facility] Comment on above: Performed By: #### M G, URIC, RENAL #### [facility] [address] [place] [address] Dr. Hari Palmer Hematocrit (Bld) [Volume fraction] 32.8 % Critically low 36.0-48.0 [facility] Comment on above: Performed By: #### M G, URIC, RENAL #### [facility] [address] [place] [address] Dr. Hari Palmer Hemoglobin (Bld) [Mass/Vol] 10.6 g/dL Critically low 12.0-16.0 [facility] Comment on above: Performed By: #### M G, URIC, RENAL #### [facility] [address] [place] [address] Dr. Hari Palmer IG # 0.14 10e3/ul Critically high 0.00-0.03 [facility] Comment on above: Performed By: #### M G, URIC, RENAL #### [facility] [address] [place] [address] Dr. Hari Palmer IG % 1.5 % Critically high 0.0-0.5 [facility] Comment on above: Performed By: #### M G, URIC, RENAL #### [facility] [address] [place] [address] Dr. Hari Palmer LYMPH # 1.8 103/ul Normal 1.2-3.8 [facility] Comment on above: Performed By: #### M G, URIC, RENAL #### [facility] [address] [place] [address] Dr. Hari Palmer Lymphocytes/100 WBC (Bld) 19.3 % Critically low 20.5-60.0 [facility] Comment on above: Performed By: #### M Edy, URIC, RENAL #### [facility] [address] [place] [address] Dr. Hari Palmer MANUAL DIFF REQ NO Normal [facility] Comment on above: Performed By: #### M G, URIC, RENAL #### [facility] [address] [place] [address] Dr. Hari Palmer MCH (RBC) [Entitic mass] 31.4 pg Normal 26.7-34.0 [facility] Comment on above: Performed By: #### M G, URIC, RENAL #### [facility] [address] [place] [address] Dr. Hari Palmer MCHC (RBC) [Mass/Vol] 32.3 g/dL Normal 29.9-35.2 [facility] Comment on above: Performed By: #### M G, URIC, RENAL #### [facility] [address] [place] [address] Dr. Hari Palmer MCV (RBC) [Entitic vol] 97.0 fL Normal 81.0-99.0 [facility] Comment on above: Performed By: #### M G, URIC, RENAL #### [facility] [address] [place] [address] Dr. Hari Palmer MONO # 0.4 103/ul Normal 0.3-0.8 [facility] Comment on above: Performed By: #### M G, URIC, RENAL #### [facility] [address] [address] [address] Hari Palmer Monocytes/100 WBC (Bld) 4.2 % Normal 1.7-12.0 [facility] Comment on above: Performed By: #### M G, URIC, RENAL #### [facility] [address] [address] [address] Hari Palmer NEUT # 6.5 103/ul Normal 1.4-6.5 [facility] Comment on above: Performed By: #### M G, URIC, RENAL #### [facility] [address] [place] [address] Dr. Hari Palmer Neutrophils/100 WBC (Bld) 70.9 % Normal 43.0-75.0 [facility] Comment on above: Performed By: #### M G, URIC, RENAL #### [facility] [address] [place] [address] Dr. Hari Palmer Platelet mean volume (Bld) [Entitic vol] 9.0 fL Critically low 9.5-13.5 [facility] Comment on above: Performed By: #### M G, URIC, RENAL #### [facility] [address] [place] [address] Dr. Hari Palmer PLT 289 103/ul Normal 150-450 [facility] Comment on above: Performed By: #### M G, URIC, RENAL #### [facility] [address] [place] [address] Dr. Hari Palmer RBC 3.38 106/ul Critically low 4.20-5.40 [facility] Comment on above: Performed By: #### M G, URIC, RENAL #### [facility] [address] [place] [address] Dr. Hari Palmer WBC 9.1 103/ul Normal 4.0-11.0 [facility] Comment on above: Performed By: #### M G, URIC, RENAL #### [facility] [address] [place] [address] Dr. Hari Palmer FERRITINon 09-01-2021 Ferritin [Mass/Vol] 204.0 ng/mL Critically high 6.2-137.0 [facility] Comment on above: Performed By: #### M G, URIC, RENAL #### [facility] [address] [place] [address] Dr. Hari Palmer IRON AND TIBCon 09-01-2021 % SATURATION 28.4 % Normal [facility] Comment on above: Performed By: #### M G, URIC, RENAL #### [facility] [address] [place] [address] Dr. Hari Palmer Iron [Mass/Vol] 80.0 ug/dL Normal 37.0-170.0 [facility] Comment on above: Performed By: #### M G, URIC, RENAL #### [facility] [address] [place] [address] Dr. Hari Palmer TIBC DIRECT 282.0 ug/dL Normal 261.0-497.0 [facility] Comment on above: Performed By: #### M G, URIC, RENAL #### [facility] [address] [place] [address] Dr. Hari Palmer MAGNESIUMon 09-01-2021 Magnesium [Mass/Vol] 2.2 mg/dL Normal 1.6-2.3 [facility] Comment on above: Performed By: #### U AMIC #### [facility] [address] [place] [address] Dr. Hari Palmer RENAL FUNCTION PANELon 09-01 Albumin [Mass/Vol] 3.5 g/dL Normal 3.5-5.0 [facility] Comment on above: Performed By: #### M G, URIC, RENAL #### [facility] [address] [place] [address] Dr. Hari Palmer Calcium [Mass/Vol] 8.7 mg/dL Normal 8.4-10.2 [facility] Comment on above: Performed By: #### M G, URIC, RENAL #### [facility] [address] [place] [address] Dr. Hari Palmer Chloride [Moles/Vol] 105 mmol/L Normal 98-107 [facility] Comment on above: Performed By: #### M G, URIC, RENAL #### [facility] [address] [address] [address] Hari Palmer CO2 [Moles/Vol] 21.1 mmol/L Critically low 22.0-30.0 [facility] Comment on above: Performed By: #### M G, URIC, RENAL #### [facility] [address] [address] [address] Hari Palmer Creatinine [Mass/Vol] 3.63 mg/dL Critically high 0.52-1.04 [facility] Comment on above: Performed By: #### M G, URIC, RENAL #### [facility] [address] [address] [address] Hari Palmer EGFR-AF TOGOLESE 16 mL/min/1.73m2 Critically low >=60 [facility] Comment on above: Performed By: #### M G, URIC, RENAL #### [facility] [address] [address] [address] Hari Palmer EGFR-NON AF TOGOLESE 14 mL/min/1.73m2 Critically low >=60 [facility] Comment on above: Performed By: #### M G, URIC, RENAL #### [facility] [address] [address] [address] Hari Palmer Glucose [Mass/Vol] 115 mg/dL Critically high 74-106 [facility] Comment on above: Performed By: #### M G, URIC, RENAL #### [facility] [address] [address] [address] Hari Palmer Phosphate [Mass/Vol] 4.6 mg/dL Critically high 2.5-4.5 [facility] Comment on above: Performed By: #### M G, URIC, RENAL #### [facility] [address] [address] [address] Hari Palmer Potassium [Moles/Vol] 4.2 mmol/L Normal 3.4-5.0 [facility] Comment on above: Performed By: #### M G, URIC, RENAL #### [facility] [address] [address] [address] Hari Palmer Sodium [Moles/Vol] 138 mmol/L Normal 137-145 [facility] Comment on above: Performed By: #### M G, URIC, RENAL #### [facility] [address] [place] [address] Dr. Hari Palmer Urea nitrogen [Mass/Vol] 50.0 mg/dL Critically high 7.0-17.0 [facility] Comment on above: Performed By: #### M G, URIC, RENAL #### [facility] [address] [place] [address] Dr. Hari Palmer UA RANDOM W/MICROSCOPICon BACTERIA SMALL Abnormal NONE SEEN [facility] Comment on above: Performed By: #### U AMIC #### [facility] [address] [place] [address] Dr. Hari Palmer Bilirubin Ql (U) Negative Normal NEGATIVE [facility] Comment on above: Performed By: #### U AMIC #### [facility] [address] [place] [address] Dr. Hari Palmer CAST NONE SEEN Normal NONE SEEN [facility] Comment on above: Performed By: #### U AMIC #### [facility] [address] [place] [address] Dr. Hari Palmer Clarity (U) CLEAR Normal CLEAR [facility] Comment on above: Performed By: #### U AMIC #### [facility] [address] [place] [address] Dr. Hari Palmer Color (U) LT. YELLOW Normal YELLOW [facility] Comment on above: Performed By: #### U AMIC #### [facility] [address] [place] [address] Dr. Hari Palmer Crystals LM Nom (Urine sed) NONE SEEN Normal NONE SEEN [facility] Comment on above: Performed By: #### U AMIC #### [facility] [address] [place] [address] Dr. Hari Palmer Epithelial cells LM Ql (Urine sed) MODERATE Abnormal NONE SEEN /RARE [facility] Comment on above: Performed By: #### U AMIC #### [facility] [address] [place] [address] Dr. Hari Palmer Glucose Ql (U) Negative Normal NEGATIVE [facility] Comment on above: Performed By: #### U AMIC #### [facility] [address] [place] [address] Dr. Hari Palmer Hemoglobin Ql (U) TRACE-INTACT Abnormal NEGATIVE [facility] Comment on above: Performed By: #### U AMIC #### [facility] [address] [place] [address] Dr. Hari Palmer Ketones Ql (U) Negative Normal NEGATIVE [facility] Comment on above: Performed By: #### U AMIC #### [facility] [address] [place] [address] Dr. Hari Palmer LEUKOCYTES Negative Normal NEGATIVE [facility] Comment on above: Performed By: #### U AMIC #### [facility] [address] [place] [address] Dr. Hari Palmer MUCOUS NONE SEEN Normal NONE SEEN [facility] Comment on above: Performed By: #### U AMIC #### [facility] [address] [place] [address] Dr. Hari Palmer Nitrite Ql (U) Negative Normal NEGATIVE [facility] Comment on above: Performed By: #### U AMIC #### [facility] [address] [place] [address] Dr. Hari Palmer pH (U) 6.0 [pH] Normal 5-9 [facility] Comment on above: Performed By: #### U AMIC #### [facility] [address] [place] [address] Dr. Hari Palmer RBC 2-5 Abnormal 0-2 [facility] Comment on above: Performed By: #### U AMIC #### [facility] [address] [place] [address] Dr. Hari Palmer SPEC GRAVITY 1.010 Normal 1.005-<=1.02 5 [facility] Comment on above: Performed By: #### U AMIC #### [facility] [address] [place] [address] Dr. Hari Palmer UA PROTEIN Negative Normal NEGATIVE/ TRACE [facility] Comment on above: Performed By: #### U AMIC #### [facility] [address] [place] [address] Dr. Hari Palmer Urobilinogen Qn (U) 0.2 {Janice'U}/dL Normal 0.2 - 1. 0 [facility] Comment on above: Performed By: #### U AMIC #### [facility] [address] [place] [address] Dr. Hari Palmer WBC 2-5 Abnormal NONE SEEN [facility] Comment on above: Performed By: #### U AMIC #### [facility] [address] [place] [address] Dr. Hari Palmer URIC ACID SERUMon 09-01-2021 Urate [Mass/Vol] 4.9 mg/dL Normal 2.5-6.2 [facility] Comment on above: Performed By: #### U AMIC #### [facility] [address] [place] [address] Dr. Hari Palmer URINE T PROTEIN CREAT RATIOo n 09-01-2021 Protein (U) [Mass/Vol] 22.2 mg/dL Critically high <=12.0 [facility] Comment on above: Performed By: #### M G, URIC, RENAL #### [facility] [address] [place] [address] Dr. Hari Palmer UR PROT CREAT RAT 0.47 Normal [facility] Comment on above: Performed By: #### M G, URIC, RENAL #### [facility] [address] [place] [address] Dr. Hari Palmer URINE CREAT 46.89 mg/dL Normal 20.00-300.00 [facility] Comment on above: Performed By: #### M G, URIC, RENAL #### [facility] [address] [place] [address] Dr. Hari Palmer VITAMIN D 25 OHon 09-01-2021 VIT D 25-OH 40.5 ng/mL Normal [facility] Comment on above: Performed By: #### M G, URIC, RENAL #### [facility] [address] [place] [address] Dr. Hari Palmer VIT D RANGES SEE BELOW Normal [facility] Comment on above: Result Comment: <20 ng/mL Vit D deficient 20 - <30 ng/mL Vit D insufficient 30 - 100 ng/mL Vit D sufficient >100 ng/mL Potential Toxicity Performed By: #### M G, URIC, RENAL #### [facility] [address] [address] [address] Hari Palmer CNOVon 03-30-2021 CNOV Office Visit (NEPHMN ) -------- MANDEEP PURI ([id number]) 1975 F Date Time Provider Department 03/30/21 9:20 AM PERRI BARRETT NEPHMN During your visit today, we recorded the following information about you: Temperature Pulse Blood pressure Weight 98.2 degrees 75/minute 122/77 93 kg Height 1.549 m Perri Barrett MD 03/30/2021 10:25 AM Signed Mrs. 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 (more content not included)... Normal [facility] Urinalysison 03-30-2021 Bilirubin, Urine Negative Normal Negative [facility] Comment on above: Performed By: #### U A #### [facility] [address] [address] Clarity (U) Clear Normal Clear [facility] Comment on above: Performed By: #### U A #### [address] [place] [phone] Color (U) Colorless Critically abnormal Yellow [facility] Comment on above: Performed By: #### U A #### [place] [phone] Comments SEE COMMENT Normal [facility] Comment on above: Result Comment: Micr oscopic not warranted Performed By: #### U A #### [place] [phone] Glucose Ql (U) Trace Critically abnormal Negative [facility] Comment on above: Performed By: #### U A #### [place] [phone] Hemoglobin/Blood,Ur Negative Normal Negative [facility] Comment on above: Performed By: #### U A #### [place] [phone] Ketones Ql (U) Negative Normal Negative [facility] Comment on above: Performed By: #### U A #### [address] [place] [address] Leukest Negative Normal Negative [facility] Comment on above: Performed By: #### U A #### [place] [phone] Nitrite Ql (U) Negative Normal Negative [facility] Comment on above: Performed By: #### U A #### [address] [place], [place] [phone] pH (U) 6.5 [pH] Normal 5.0-8.0 [facility] Comment on above: Performed By: #### U A #### [address] [address] [place] [phone] Protein, Urine Negative Normal Negative [facility] Comment on above: Performed By: #### U A #### [address] [address] Specific Bruno, Ur 1.008 Normal 1.005-1.030 [facility] Comment on above: Performed By: #### U A #### [place] [phone] Urine Codi Comment SEE COMMENT Normal [facility] Comment on above: Result Comment: N/A Performed By: #### U A #### [address] [address] Urobilinogen (U) [Mass/Vol] Negative Normal Negative [facility] Comment on above: Performed By: #### U A #### [address] [place] [phone] Coding Summary.on 04-21-2020 Coding Summary. CODING DATE: 020 [facility] STATUS: Home (Routine DC) PAYOR: Medical Mims ADMIT DX: REASON FOR VISIT DX: Z20.828 [...] Saved: 04/21/2020 05:17 pm [address] [facility] Physician Orderon 04-21-2020 Physician Order [id number]: [address] [facility] Marci 04-12-2020 ALT [Catalytic activity/Vol] 14 U/L Normal 7 - 45 [facility] Comment on above: Result Comment: Kelsea ents treated with Sulfasalazine may generate falsely decreased results for ALT. Performed By: #### A LT #### [facility] [address] [place] [address] Ronald 04-12-2020 AST [Catalytic activity/Vol] 16 U/L Normal 9 - 39 [facility] Comment on above: Performed By: #### A ST #### [facility] [address] [place] [address] CREATININEon 04-12-2020 Creatinine [Mass/Vol] 2.83 mg/dL High 0.50 - 1.05 [facility] Comment on above: Performed By: #### C REAT #### [facility] [address] [place] [address] Creatinine [Mass/Vol] 18 mL/min/1.73m2 Abnormal >60 [facility] Comment on above: Performed By: #### C REAT #### [facility] [address] [place] [address] Creatinine [Mass/Vol] 22 mL/min/1.73m2 Abnormal >60 [facility] Comment on above: Result Comment: CALC ULATIONS OF ESTIMATED GFR ARE PERFORMED USING THE MDRD STUDY EQUATION FOR THE IDMS-TRACEABLE CREATININE METHODS. CLIN CHEM 2007;53:766-72 Performed By: #### C REAT #### [facility] [address] [place] [address] URIC ACIDon 04-12-2020 Urate [Mass/Vol] 5.2 mg/dL Normal 2.3 - 6.7 [facility] Comment on above: Result Comment: Beti puncture immediately after or during the administration of Metamizole may lead to falsely low results. Testing should be performed immediately prior to Metamizole dosing. Performed By: #### U DASHAWN #### [facility] [address] [place] [address] URIC ACIDon 02-11-2020 Urate [Mass/Vol] 8.2 mg/dL High 2.3 - 6.7 [facility] Comment on above: Result Comment: Beti puncture immediately after or during the administration of Metamizole may lead to falsely low results. Testing should be performed immediately prior to Metamizole dosing. Performed By: #### U DASHAWN #### [facility] [address] [place] [address] Cult,Urineon 08-04-2019 Cult,Urine Specimen Description .CLEAN CATCH URINE Special Requests NOT REPORTED Culture ESCHERICHIA COLI >[id number] CFU/ML Report Status FINAL 08/04/2019 SUSCEPTIBILITY Organism [...] Trimethoprim/Sulfa <=20 SUSCEPTIBLE Piperacillin/Tazobactam <=4 SUSCEPTIBLE Normal [facility] Comment on above: Performed By: #### D CITLALY, LIP, CMPX, TROPI, BNP, CDP, PT #### [facility] [address] [place] [address] [employer] Operator: Sami Dominguez MD Brain Natri. Peptideon 08-02 Natriuretic peptide B (Bld) [Mass/Vol] 152 pg/mL Normal <300 [facility] Comment on above: Result Comment: Pro- BNP results cannot be compared to BNP results. Performed By: #### D CITLALY, LIP, CMPX, TROPI, BNP, CDP, PT #### [facility] [address] [place] [address] [employer] Operator: Sami Dominguez MD Natriuretic peptide B (Bld) [Mass/Vol] Pro-BNP Reference Range: Normal [facility] Comment on above: Result Comment: Rule Out: <300 Parra Zone: Age <50 300-450 Age 50-75 300-900 Age >75 300-1800 Usually represents mild to moderate HF but other cardiopulmonary causes cannot be ruled out. Rule In: Age <50 >450 Age 50-75 >900 Age >75 >1800 Performed By: #### D CITLALY, LIP, CMPX, TROPI, BNP, CDP, PT #### [facility] [address] [place] [address] [employer] Operator: Sami Dominguez MD Brain Natriuretic Peptideon 08-02-2019 Natriuretic peptide B (Bld) [Mass/Vol] 152 pg/mL <300 [place] Comment on above: Pro-BNP results eric ot be compared to BNP results. Natriuretic peptide B (Bld) [Mass/Vol] Pro-BNP Reference Range: [place] Comment on above: Rule Out: <300 Parra Zone: Age <50 300-450 Age 50-75 300-900 Age >75 300-1800 Usually represents mild to moderate HF but other cardiopulmonary causes cannot be ruled out. Rule In: Age <50 >450 Age 50-75 >900 Age >75 >1800 CBC Auto Differentialon 07-07 Basophils (Bld) [#/Vol] 0.00 10*3/uL [place] Basophils/100 WBC (Bld) 0 % 0 - 2 % [place] Differential Type NOT REPORTED [place] Eosinophils (Bld) [#/Vol] 0.08 10*3/uL [place] Eosinophils/100 WBC (Bld) 1 % 1 - 4 % [place] Erythrocyte distribution width (RBC) [Ratio] 13.2 % 11.8 - 14.4 % [place] Hematocrit (Bld) [Volume fraction] 33.7 % Low 36.3 - 47.1 % [place] Hemoglobin (Bld) [Mass/Vol] 10.7 g/dL Low 11.9 - 15.1 g/dL [place] Immature granulocytes (Bld) [#/Vol] 0 % 0 [place] Immature granulocytes (Bld) [#/Vol] 0.00 10*3/uL [place] Interpretation and review of laboratory results Abnormal [place] Lymphocytes (Bld) [#/Vol] 0.90 10*3/uL Low [place] Lymphocytes/100 WBC (Bld) 12 % Low 24 - 43 % [place] MCH (RBC) [Entitic mass] 30.2 pg 25.2 - 33.5 pg [place] MCHC (RBC) [Mass/Vol] 31.8 g/dL 28.4 - 34.8 g/dL [place] MCV (RBC) [Entitic vol] 95.2 fL 82.6 - 102.9 fL [place] Monocytes (Bld) [#/Vol] 0.00 10*3/uL Low [place] Monocytes/100 WBC (Bld) 0 % Low 3 - 12 % [place] Morphology Geovany (Bld) [Interp] Normal [place] Platelet mean volume (Bld) [Entitic vol] 8.6 fL 8.1 - 13.5 fL [place] Platelets (Bld) [#/Vol] NOT REPORTED [place] Platelets (Bld) [#/Vol] 335 10*3/uL [place] RBC (Bld) [#/Vol] 3.54 10*6/uL Low 3.95 - 5.1 1 m/uL [place] RBC morphology finding Nom (Bld) NOT REPORTED [place] Segmented neutrophils/100 WBC (Bld) 87 % High 36 - 65 % [place] Segs Absolute 6.52 [place] WBC (Bld) [#/Vol] 7.5 10*3/uL [place] WBC (Bld) [#/Vol] 0.0 10*3/uL 0.0 per 10 0 WBC [place] WBC Morphology NOT REPORTED [place] CBC with Diffon 08-02-2019 Abs. Basophil 0.00 k/uL Normal 0.0-0.2 [facility] Comment on above: Performed By: #### D CITLALY, LIP, CMPX, TROPI, BNP, CDP, PT #### [facility] [address] [place] [phone] [employer] Operator: Sami Dominguez MD Abs.Imm.Granulocyte 0.00 k/uL Normal 0.00-0.30 [facility] Comment on above: Performed By: #### D CITLALY, LIP, CMPX, TROPI, BNP, CDP, PT #### [facility] [address] [place], [place] [address] [employer] Operator: Sami Dominguez MD Abs.Neutrophil (Seg) 6.52 k/uL Normal 1.50-8.10 [facility] Comment on above: Performed By: #### D CITLALY, LIP, CMPX, TROPI, BNP, CDP, PT #### [address] [place], [place] [address] [employer] Operator: Sami Dominguez MD Basophils/100 WBC (Bld) 0 % Normal 0-2 [facility] Comment on above: Performed By: #### D CITLALY, LIP, CMPX, TROPI, BNP, CDP, PT #### [address] [place], [id number] [employer] Operator: Sami Dominguez MD Eosinophils (Bld) [#/Vol] 0.08 10*3/uL Normal 0.00-0.44 [facility] Comment on above: Performed By: #### D CITLALY, LIP, CMPX, TROPI, BNP, CDP, PT #### [facility] [address] [place], [id number] [employer] Operator: Sami Dominguez MD Eosinophils/100 WBC (Bld) 1 % Normal 1-4 [facility] Comment on above: Performed By: #### D CITLALY, LIP, CMPX, TROPI, BNP, CDP, PT #### [address] [place], [place] [address] [employer] Operator: Sami Dominguez MD Immature granulocytes (Bld) [#/Vol] 0 % Normal 0 [facility] Comment on above: Performed By: #### D CITLALY, LIP, CMPX, TROPI, BNP, CDP, PT #### [facility] [address] [place], [id number] [employer] Operator: Sami Dominguez MD Lymphocytes (Bld) [#/Vol] 0.90 10*3/uL Low 1.10-3.70 [facility] Comment on above: Performed By: #### D CITLALY, LIP, CMPX, TROPI, BNP, CDP, PT #### [facility] [address] [place], [id number] [employer] Operator: Sami Dominguez MD Lymphocytes/100 WBC (Bld) 12 % Low 24-43 [facility] Comment on above: Performed By: #### D CITLALY, LIP, CMPX, TROPI, BNP, CDP, PT #### [facility] [address] [place], [id number] [employer] Operator: Sami Dominguez MD Monocytes (Bld) [#/Vol] 0.00 10*3/uL Low 0.10-1.20 [facility] Comment on above: Performed By: #### D CITLALY, LIP, CMPX, TROPI, BNP, CDP, PT #### [facility] [address] [place], [place] [address] [employer] Operator: Sami Dominguez MD Monocytes/100 WBC (Bld) 0 % Low 3-12 M [facility] Comment on above: Performed By: #### D CITLALY, LIP, CMPX, TROPI, BNP, CDP, PT #### [facility] [address] [place], [id number] [employer] Operator: Sami Dominguez MD Morphology Geovany (Bld) [Interp] Normal Normal [facility] Comment on above: Performed By: #### D CITLALY, LIP, CMPX, TROPI, BNP, CDP, PT #### [facility] [address] [place], [id number] [employer] Operator: Sami Dominguez MD Neutrophil (Seg) 87 % High 36-65 [facility] Comment on above: Performed By: #### D CITLALY, LIP, CMPX, TROPI, BNP, CDP, PT #### [facility] [address] [place], [id number] [employer] Operator: Sami Dominguez MD Erythrocyte distribution width (RBC) [Ratio] 13.2 % Normal 11.8-14.4 [facility] Comment on above: Performed By: #### D CITLALY, LIP, CMPX, TROPI, BNP, CDP, PT #### [address] [place], [id number] [employer] Operator: Sami Dominguez MD Hematocrit (Bld) [Volume fraction] 33.7 % Low 36.3-47.1 [facility] Comment on above: Performed By: #### D CITLALY, LIP, CMPX, TROPI, BNP, CDP, PT #### [address] [place], [id number] [employer] Operator: Sami Dominguez MD Hemoglobin (Bld) [Mass/Vol] 10.7 g/dL Low 11.9-15.1 [facility] Comment on above: Performed By: #### D CITLALY, LIP, CMPX, TROPI, BNP, CDP, PT #### [facility] [address] [place] [address] Dr. [place], [id number] [employer] Operator: Sami Dominguez MD MCH (RBC) [Entitic mass] 30.2 pg Normal 25.2-33.5 [facility] Comment on above: Performed By: #### D CITLALY, LIP, CMPX, TROPI, BNP, CDP, PT #### [facility] [address] [place] [address] Dr. [place], [id number] [employer] Operator: Sami Dominguez MD MCHC (RBC) [Mass/Vol] 31.8 g/dL Normal 28.4-34.8 [facility] Comment on above: Performed By: #### D CITLALY, LIP, CMPX, TROPI, BNP, CDP, PT #### [facility] [address] [place] [address] [employer] Operator: Sami Dominguez MD MCV (RBC) [Entitic vol] 95.2 fL Normal 82.6-102.9 [facility] Comment on above: Performed By: #### D CITLALY, LIP, CMPX, TROPI, BNP, CDP, PT #### [facility] [address] [place], [place] [phone] [employer] Operator: Sami Dominguez MD NRBC Automated 0.0 per 100 WBC Normal 0.0 [facility] Comment on above: Performed By: #### D CITLALY, LIP, CMPX, TROPI, BNP, CDP, PT #### [facility] [address] [place] [address] [employer] Operator: Sami Dominguez MD Platelet mean volume (Bld) [Entitic vol] 8.6 fL Normal 8.1-13.5 [facility] Comment on above: Performed By: #### D CITLALY, LIP, CMPX, TROPI, BNP, CDP, PT #### [address] [place], [place] [address] [employer] Operator: Sami Dominguez MD Platelets (Bld) [#/Vol] 335 10*3/uL Normal 138-453 [facility] Comment on above: Performed By: #### D CITLALY, LIP, CMPX, TROPI, BNP, CDP, PT #### [facility] [address] [place], [place] [phone] [employer] Operator: Sami Dominguez MD RBC (Bld) [#/Vol] 3.54 10*6/uL Low 3.95-5.11 [facility] Comment on above: Performed By: #### D CITLALY, LIP, CMPX, TROPI, BNP, CDP, PT #### [facility] [address] [place], [place] [phone] [employer] Operator: Sami Dominguez MD WBC (Bld) [#/Vol] 7.5 10*3/uL Normal 3.5-11.3 [facility] Comment on above: Performed By: #### D CITLALY, LIP, CMPX, TROPI, BNP, CDP, PT #### [facility] [address] [place] [address] [employer] Operator: Sami Dominguez MD Auto Diff Performed NOT REPORTED Normal [facility] Comment on above: Performed By: #### D CITLALY, LIP, CMPX, TROPI, BNP, CDP, PT #### [address] [place], [place] [phone] [employer] Operator: Sami Dominguez MD Platelets (Bld) [#/Vol] NOT REPORTED Normal [facility] Comment on above: Performed By: #### D CITLALY, LIP, CMPX, TROPI, BNP, CDP, PT #### [address] [place], [place] [phone] [employer] Operator: Sami Dominguez MD RBC morphology finding Nom (Bld) NOT REPORTED Normal [facility] Comment on above: Performed By: #### D CITLALY, LIP, CMPX, TROPI, BNP, CDP, PT #### [address] [place], [place] [phone] [employer] Operator: Sami Dominguez MD WBC Morphology NOT REPORTED Normal [facility] Comment on above: Performed By: #### D CITLALY, LIP, CMPX, TROPI, BNP, CDP, PT #### [address] [place], [place] [id number] [employer] Operator: Sami Dominguez MD CTA CHEST ABDOMEN PELVIS [facility] 08-02-2019 CTA CHEST ABDOMEN PELVIS W [...] Yunier Yang MD 08/02/19 Final result Normal [facility] Moshe, Mhpn Incoming Radiant Results From [employer] - 08/02/2019 1:21 PM EDT EXAMINATION: CTA [...] recommended. Reference: J Am Danika Radiol 2013;10:675-681 [place] EXAMINATION: CTA OF THE CHEST, ABDOMEN [...] and caliber without aneurysmal dilatation or dissection. [place] No evidence for aneurysmal dilatation or dissection of the aorta or its branches. Findings most compatible with polycystic kidney disease. Subtle inflammation adjacent to the descending colon is suggestive of subtle colitis. No perforation or abscess formation. No free intraperitoneal air or fluid. 4.1 cm benign appearing ovarian cyst No follow-up imaging is recommended. Reference: J Am Danika Radiol 2013;10:675-681 [place] Comp Metabolic Pr/rfx MGon 1 (cont.) Normal [facility] Comment on above: Result Comment: Aver age GFR for 40-49 years old: 99 mL/min/1.73sq m Chronic Kidney Disease: <60 mL/min/1.73sq m Kidney failure: <15 mL/min/1.73sq m eGFR calculated using average adult body mass. Additional eGFR calculator available at: http://www.ChipIn/multiple_crcl_2012.htm Performed By: #### D CITLALY, LIP, CMPX, TROPI, BNP, CDP, PT #### [facility] [address] [place] [address] [employer] Operator: Sami Dominguez MD Albumin [Mass/Vol] 4.4 g/dL Normal 3.5-5.2 [facility] Comment on above: Performed By: #### D CITLALY, LIP, CMPX, TROPI, BNP, CDP, PT #### [address] [place] [address] [employer] Operator: Sami Dominguez MD Albumin/Globulin [Mass ratio] 1.0 {ratio} Normal 1.0-2.5 [facility] Comment on above: Performed By: #### D CITLALY, LIP, CMPX, TROPI, BNP, CDP, PT #### [address] [place] [address] [employer] Operator: Sami Dominguez MD Alkaline Phos 98 U/L Normal 35-104 [facility] Comment on above: Performed By: #### D CITLALY, LIP, CMPX, TROPI, BNP, CDP, PT #### [facility] [address] [place] [address] [employer] Machine Operator: Sami Dominguez MD ALT [Catalytic activity/Vol] 16 U/L Normal 5-33 [facility] Comment on above: Performed By: #### D CITLALY, LIP, CMPX, TROPI, BNP, CDP, PT #### [facility] [address] [place] [address] [employer] Operator: Sami Dominguez MD Anion gap [Moles/Vol] 18 mmol/L High 9-17 [facility] Comment on above: Performed By: #### D CITLALY, LIP, CMPX, TROPI, BNP, CDP, PT #### [facility] [address] [place] [address] [employer] Operator: Sami Dominguez MD AST [Catalytic activity/Vol] 18 U/L Normal <32 [facility] Comment on above: Performed By: #### D CITLALY, LIP, CMPX, TROPI, BNP, CDP, PT #### [facility] [address] [place], [place] [phone] [employer] Operator: Sami Dominguez MD Bilirubin Ql (U) 0.31 mg/dL Normal 0.3-1.2 [facility] Comment on above: Performed By: #### D CITLALY, LIP, CMPX, TROPI, BNP, CDP, PT #### [address] [place], [place] [phone] [employer] Operator: Sami Dominguez MD BUN/CRE Ratio 13 Normal 9-20 [facility] Comment on above: Performed By: #### D CITLALY, LIP, CMPX, TROPI, BNP, CDP, PT #### [address] [place], [place] [phone] [employer] Operator: Sami Dominguez MD Calcium [Mass/Vol] 9.7 mg/dL Normal 8.6-10.4 [facility] Comment on above: Performed By: #### D CITLALY, LIP, CMPX, TROPI, BNP, CDP, PT #### [facility] [address] [place], [place] [phone] [employer] Operator: Sami Dominguez MD Chloride [Moles/Vol] 95 mmol/L Low 98-107 [facility] Comment on above: Performed By: #### D CITLALY, LIP, CMPX, TROPI, BNP, CDP, PT #### [facility] [address] [place], [place] [address] [employer] Operator: Sami Dominguez MD CO2 [Moles/Vol] 18 mmol/L Low 20-31 [facility] Comment on above: Performed By: #### D CITLALY, LIP, CMPX, TROPI, BNP, CDP, PT #### [facility] [address] [place] [address] [employer] Operator: Sami Dominguez MD Creatinine [Mass/Vol] 3.07 mg/dL High 0.50-0.90 [facility] Comment on above: Performed By: #### D CITLALY, LIP, CMPX, TROPI, BNP, CDP, PT #### [facility] [address] [place] [address] [employer] Operator: Sami Dominguez MD GFR, Amer 20 mL/min Low >60 [facility] Comment on above: Performed By: #### D CITLALY, LIP, CMPX, TROPI, BNP, CDP, PT #### [facility] [address] [place], [id number] [employer] Operator: Sami Dominguez MD GFR,non Amer 17 mL/min Low >60 [facility] Comment on above: Performed By: #### D CITLALY, LIP, CMPX, TROPI, BNP, CDP, PT #### [address] [place], [id number] [employer] Operator: Sami Dominguez MD Glucose [Mass/Vol] 89 mg/dL Normal 70-99 [facility] Comment on above: Performed By: #### D CITLALY, LIP, CMPX, TROPI, BNP, CDP, PT #### [facility] [address] [place] [address] [employer] Operator: Sami Dominguez MD Potassium [Moles/Vol] 3.9 mmol/L Normal 3.7-5.3 [facility] Comment on above: Performed By: #### D CITLALY, LIP, CMPX, TROPI, BNP, CDP, PT #### [facility] [address] [place] [address] [employer] Operator: Sami Dominguez MD Protein [Mass/Vol] 8.8 g/dL High 6.4-8.3 [facility] Comment on above: Performed By: #### D CITLALY, LIP, CMPX, TROPI, BNP, CDP, PT #### [facility] [address] [place] [address] [employer] Operator: Sami Dominguez MD Sodium [Moles/Vol] 131 mmol/L Low 135-144 [facility] Comment on above: Performed By: #### D CITLALY, LIP, CMPX, TROPI, BNP, CDP, PT #### [facility] [address] [place] [address] [employer] Operator: Sami Dominguez MD Staging: Normal [facility] Comment on above: Result Comment: Stag e 1: Some kidney damage normal GFR Stage 2: Mild kidney damage GFR 60-89 Stage 3: Moderate kidney damage GFR 30-59 Stage 4: Severe kidney damage GFR 15-29 Stage 5: Severe kidney damage GFR <15 ESRD - chronic treatment by dialysis or transplant Performed By: #### D CITLALY, LIP, CMPX, TROPI, BNP, CDP, PT #### [address] [place] [address] [employer] Operator: Sami Dominguez MD Urea nitrogen [Mass/Vol] 39 mg/dL High 6-20 [facility] Comment on above: Performed By: #### D CITLALY, LIP, CMPX, TROPI, BNP, CDP, PT #### [facility] [address] [place] [address] [employer] Operator: Sami Dominguez MD Comprehensive Metabolic Pane l w/ Reflex to MGon 08-02-2019 Albumin [Mass/Vol] 4.4 g/dL 3.5 - 5.2 g/dL [place] Albumin/Globulin [Mass ratio] 1.0 {ratio} [place] ALP [Catalytic activity/Vol] 98 U/L 35 - 104 U/L [place] ALT [Catalytic activity/Vol] 16 U/L 5 - 33 U/L [place] Anion gap [Moles/Vol] 18 mmol/L High 9 - 17 mmol/L [place] AST [Catalytic activity/Vol] 18 U/L <32 [place] Bilirubin Ql (U) 0.31 mg/dL 0.3 - 1.2 mg/dL [place] Bun/Cre Ratio 13 [place] Calcium [Mass/Vol] 9.7 mg/dL 8.6 - 10. 4 mg/dL [place] Chloride [Moles/Vol] 95 mmol/L Low 98 - 10 7 mmol/L [place] CO2 [Moles/Vol] 18 mmol/L Low 20 - 31 mmol/L [place] Creatinine [Mass/Vol] 3.07 mg/dL High 0.5 - 0.9 mg/dL [place] GFR 20 mL/min Low >60 [place] GFR Non- 17 mL/min Low >60 [place] Glucose [Mass/Vol] 89 mg/dL 70 - 99 mg/dL [place] Interpretation and review of laboratory results Abnormal [place] Potassium [Moles/Vol] 3.9 mmol/L 3.7 - 5.3 mmol/L [place] Protein [Mass/Vol] 8.8 g/dL High 6.4 - 8.3 g/dL [place] Sodium [Moles/Vol] 131 mmol/L Low 135 - 144 mmol/L [place] Urea nitrogen [Mass/Vol] 39 mg/dL High 6 - 20 mg/dL [place] D-Dimer Teston 08-02-2019 D-Dimer Test 1.15 mg/L FEU High 0.19-0.50 [facility] Comment on above: Result Comment: Elevated [...] CMPX, TROPI, BNP, CDP, PT #### [address] [place] [address] [employer] Operator: Sami Dominguez MD D-Dimer, Quantitativeon 07-07 D-Dimer, Quant 1.15 [place] Comment on above: Elevated levels of [...] Interpretation and review of laboratory results Abnormal [place] Lactate, Sepsison 08-02-2019 Lactic Acid, Sepsis 3.6 mmol/L High 0.5-1.9 [facility] Comment on above: Performed By: #### L ACDS #### [address] [place] [address] [employer] Operator: Sami Dominguez MD Lactic Acid,Sep Wbld NOT REPORTED Normal 0.5-1.9 [facility] Comment on above: Performed By: #### L ACDS #### [address] [place] [address] [employer] Operator: Sami Dominguez MD Interpretation and review of laboratory results Abnormal [place] Lactic Acid, Sepsis 3.6 mmol/L High 0.5 - 1. 9 mmol/L [place] Lactic Acid, Sepsis, Whole Blood NOT REPORTED 0.5 - 1.9 mmol/L [place] Lactic Acidon 08-02-2019 Lactate [Moles/Vol] 1.0 mmol/L Normal 0.5-2.2 [facility] Comment on above: Performed By: #### D CITLALY, LIP, CMPX, TROPI, BNP, CDP, PT #### [facility] [address] [place] [address] [employer] Operator: Sami Dominguez MD Lactate [Moles/Vol] NOT REPORTED Normal 0.7-2.1 [facility] Comment on above: Performed By: #### D CITLALY, LIP, CMPX, TROPI, BNP, CDP, PT #### [facility] [address] [place] [address] [employer] Operator: Sami Dominguez MD Lactic Acid, Plasmaon 2018 Lactate [Moles/Vol] 1 mmol/L 0.5 - 2. 2 mmol/L [place] Lactic Acid, Whole Blood NOT REPORTED 0.7 - 2.1 mmol/L [place] Lipaseon 08-02-2019 Lipase [Catalytic activity/Vol] 38 U/L Normal 13-60 [facility] Comment on above: Performed By: #### D CITLALY, LIP, CMPX, TROPI, BNP, CDP, PT #### [facility] [address] [place] [address] [employer] Operator: aSmi Dominguez MD Lipase [Catalytic activity/Vol] 38 U/L 13 - 60 U/L [place] Metabolic Panelon 08-02-2019 GFR/1.73 sq M predicted among non-blacks MDRD (S/P/Bld) [Vol rate/Area] [place] Comment on above: Stage 1: Some [...] body mass. Additional eGFR calculator available at: http://www.[employer].Movista/multiple_crcl_2012.htm Microscopic Urinalysison Amorphous, UA NOT REPORTED None [place] Bacteria, UA 1+ Abnormal None [place] Casts UA NOT REPORTED /LPF [place] Crystals UA NOT REPORTED None /HPF [place] Epithelial Cells UA 2 TO 5 [place] Interpretation and review of laboratory results Abnormal [place] Mucus, UA NOT REPORTED None [place] Other Observations UA NOT REPORTED NOT REQ. [place] RBC (U) [#/Vol] None [place] Renal Epithelial, Urine NOT REPORTED 0 /HPF [place] Trichomonas, UA NOT REPORTED None [place] WBC, UA 50 TO 100 [place] Yeast, UA NOT REPORTED None [place] PTon 08-02-2019 INR Coag (PPP) [Relative time] 1.0 {INR} Normal 0.9-1.2 [facility] Comment on above: Performed By: #### D CITLALY, LIP, CMPX, TROPI, BNP, CDP, PT #### [facility] [address] [place] [address] [employer] Operator: Sami Dominguez MD PT Coag (PPP) [Time] 10.0 s Normal 9.7-12.2 [facility] Comment on above: Performed By: #### D CITLALY, LIP, CMPX, TROPI, BNP, CDP, PT #### [facility] [address] [place] [address] [employer] Operator: Sami Dominguez MD Protime-INRon 08-02-2019 INR Coag (PPP) [Relative time] 1.0 {INR} [place] PT Coag (PPP) [Time] 10 s [place] Troponinon 08-02-2019 Troponin I.cardiac [Mass/Vol] ng/mL Normal <0.03 [facility] Comment on above: Result Comment: Trop onin T results cannot be compared to Troponin-I results. Performed By: #### D CITLALY, LIP, CMPX, TROPI, BNP, CDP, PT #### [facility] [address] [place] [id number] [employer] Operator: Sami Dominguez MD Troponin I.cardiac [Mass/Vol] Normal [facility] Comment on above: Result Comment: Refe [...] LIP, CMPX, TROPI, BNP, CDP, PT #### [facility] [address] [place] [id number] [employer] Operator: Sami Dominguez MD Troponin I.cardiac [Mass/Vol] NOT REPORTED Normal 0-14 [facility] Comment on above: Performed By: #### D CITLALY, LIP, CMPX, TROPI, BNP, CDP, PT #### [facility] [address] [place] [address] [place] [id number] [employer] Operator: Sami Dominguez MD Troponin I.cardiac [Mass/Vol] [place] Comment on above: Reference Range: <0.03 [...] diagnosis. Troponin T.cardiac [Mass/Vol] ug/L <0.03 ng/mL [place] Comment on above: Troponin T results c annot be compared to Troponin-I results. Troponin, High Sensitivity NOT REPORTED 0 - 14 ng/L [place] Troponin I.cardiac [Mass/Vol] ng/mL Normal <0.03 [facility] Comment on above: Result Comment: Trop onin T results cannot be compared to Troponin-I results. Performed By: #### D CITLALY, LIP, CMPX, TROPI, BNP, CDP, PT #### [facility] [address] [place] [address] [employer] Operator: Sami Dominguez MD Troponin I.cardiac [Mass/Vol] Normal [facility] Comment on above: Result Comment: Refe [...] LIP, CMPX, TROPI, BNP, CDP, PT #### [facility] [address] [place] [address] [employer] Operator: Sami Dominguez MD Troponin I.cardiac [Mass/Vol] NOT REPORTED Normal 0-14 [facility] Comment on above: Performed By: #### D CITLALY, LIP, CMPX, TROPI, BNP, CDP, PT #### [facility] [address] [place] [address] [employer] Operator: Sami Dominguez MD Troponin I.cardiac [Mass/Vol] [place] Comment on above: Reference Range: <0.03 [...] diagnosis. Troponin T.cardiac [Mass/Vol] ug/L <0.03 ng/mL [place] Comment on above: Troponin T results c annot be compared to Troponin-I results. Troponin, High Sensitivity NOT REPORTED 0 - 14 ng/L [place] UA w/Reflex Cultureon 2018 Acetoacetic Acid,Ur Negative Normal NEG [facility] Comment on above: Performed By: #### D CITLALY, LIP, CMPX, TROPI, BNP, CDP, PT #### [facility] [address] [place] [address] [employer] Operator: Sami Dominguez MD Bilirubin, SemiQt,Ur Negative Normal NEG [facility] Comment on above: Performed By: #### D CITLALY, LIP, CMPX, TROPI, BNP, CDP, PT #### [facility] [address] [place], [place] [phone] [employer] Operator: Sami Dominguez MD Color (U) YELLOW Normal YEL [facility] Comment on above: Performed By: #### D CITLALY, LIP, CMPX, TROPI, BNP, CDP, PT #### [facility] [address] [place] [address] [employer] Operator: Sami Dominguez MD Glucose Ql (U) Negative Normal [facility] Comment on above: Performed By: #### D CITLALY, LIP, CMPX, TROPI, BNP, CDP, PT #### [address] [place], [place] [id number] [employer] Operator: Sami Dominguez MD Hemoglobin, Ur 1+ Abnormal NEG [facility] Comment on above: Performed By: #### D CITLALY, LIP, CMPX, TROPI, BNP, CDP, PT #### [facility] [address] [place], [place] [id number] [employer] Operator: Sami Dominguez MD Leukocyte esterase Test strip Ql (U) MODERATE Abnormal [facility] Comment on above: Performed By: #### D CITLALY, LIP, CMPX, TROPI, BNP, CDP, PT #### [facility] [address] [place], [id number] [employer] Operator: Sami Dominguez MD Nitrite,Ur Negative Normal NEG [facility] Comment on above: Performed By: #### D CITLALY, LIP, CMPX, TROPI, BNP, CDP, PT #### [address] [place], [id number] [employer] Operator: Sami Dominguez MD pH (U) 6.0 [pH] Normal 5.0-9.0 [facility] Comment on above: Performed By: #### D CITLALY, LIP, CMPX, TROPI, BNP, CDP, PT #### [address] [place], [id number] [employer] Operator: Sami Dominguez MD Protein Ql (U) TRACE Abnormal NEG [facility] Comment on above: Performed By: #### D CITLALY, LIP, CMPX, TROPI, BNP, CDP, PT #### [address] [place], [id number] [employer] Operator: Sami Dominguez MD Specific gravity (U) [Rel density] 1.010 Normal 1.010-1.020 [facility] Comment on above: Performed By: #### D CITLALY, LIP, CMPX, TROPI, BNP, CDP, PT #### [address] [place], [id number] [employer] Operator: Sami Dominguez MD Turbidity CLEAR Normal CLEAR [facility] Comment on above: Performed By: #### D CITLALY, LIP, CMPX, TROPI, BNP, CDP, PT #### [address] [place], [id number] [employer] Operator: Sami Dominguez MD Urobilinogen,Ur Normal Normal NORM [facility] Comment on above: Performed By: #### D CITLALY, LIP, CMPX, TROPI, BNP, CDP, PT #### [address] [place] [address] [employer] Operator: Sami Dominguez MD Comment NOT REPORTED Normal [facility] Comment on above: Performed By: #### D CITLALY, LIP, CMPX, TROPI, BNP, CDP, PT #### [address] [place] [address] [employer] Operator: Sami Dominguez MD Urinalysis Reflex to Culture on 08-02-2019 Bilirubin Urine Negative NEGATIVE [place] Color, UA YELLOW YELLOW [place] Glucose, Ur Negative NEGATIVE [place] Interpretation and review of laboratory results Abnormal [place] Ketones Ql (U) Negative NEGATIVE [place] Leukocyte esterase Test strip Ql (U) MODERATE Abnormal NEGATIVE [place] Nitrite, Urine Negative NEGATIVE [place] pH, UA 6.0 [place] Protein (U) [Mass/Vol] TRACE Abnormal NEGATIVE [place] Specific Bruno, UA 1.010 [place] Turbidity UA CLEAR CLEAR [place] Urinalysis Comments NOT REPORTED [place] Urine Hgb 1+ Abnormal NEGATIVE [place] Urobilinogen, Urine Normal Normal [place] Urinalysis,Microon 9 ----- Normal [facility] Comment on above: Performed By: #### D CITLALY, LIP, CMPX, TROPI, BNP, CDP, PT #### [facility] [address] [place] [address] [employer] Operator: Sami Dominguez MD Bacteria LM.HPF (Urine sed) [#/Area] 1+ Abnormal NONE [facility] Comment on above: Performed By: #### D CITLALY, LIP, CMPX, TROPI, BNP, CDP, PT #### [facility] [address] [place] [address] [employer] Machine Operator: Sami Dominguez MD Epithelial cells LM.HPF (Urine sed) [#/Area] 2 TO 5 Normal 0-25 [facility] Comment on above: Performed By: #### D CITLALY, LIP, CMPX, TROPI, BNP, CDP, PT #### [facility] [address] [place] [address] [employer] Operator: Sami Dominguez MD RBC (U) [#/Vol] None Normal 0-2 [facility] Comment on above: Performed By: #### D CITLALY, LIP, CMPX, TROPI, BNP, CDP, PT #### [facility] [address] [place] [phone] [employer] Operator: Sami Dominguez MD WBC (U) [#/Vol] 50 TO 100 Normal 0-5 [facility] Comment on above: Performed By: #### D CITLALY, LIP, CMPX, TROPI, BNP, CDP, PT #### [facility] [address] [place] [phone] [employer] Operator: Sami Dominguez MD Amorphous sediment LM Ql (Urine sed) NOT REPORTED Normal [facility] Comment on above: Performed By: #### D CITLALY, LIP, CMPX, TROPI, BNP, CDP, PT #### [address] [place] [phone] [employer] Operator: Sami Dominguez MD Casts LM.LPF (Urine sed) [#/Area] NOT REPORTED Normal [facility] Comment on above: Performed By: #### D CITLALY, LIP, CMPX, TROPI, BNP, CDP, PT #### [facility] [address] [place], [id number] [employer] Operator: Sami Dominguez MD Crystals LM Nom (Urine sed) NOT REPORTED Normal [facility] Comment on above: Performed By: #### D CITLALY, LIP, CMPX, TROPI, BNP, CDP, PT #### [facility] [address] [place] [address] [employer] Machine Operator: Sami Dominguez MD Epithelial, Renal NOT REPORTED Normal 0 [facility] Comment on above: Performed By: #### D CITLALY, LIP, CMPX, TROPI, BNP, CDP, PT #### [facility] [address] [place], [place] [phone] [employer] Operator: Sami Dominguez MD Mucus Strands NOT REPORTED Normal [facility] Comment on above: Performed By: #### D CITLALY, LIP, CMPX, TROPI, BNP, CDP, PT #### [facility] [address] [place], [place] [phone] [employer] Operator: Sami Dominguez MD Other Observations NOT REPORTED Normal NREQ [facility] Comment on above: Performed By: #### D CITLALY, LIP, CMPX, TROPI, BNP, CDP, PT #### [facility] [address] [place], [place] [phone] [employer] Machine Operator: Sami Dominguez MD Trichomonas NOT REPORTED Normal [facility] Comment on above: Performed By: #### D CITLALY, LIP, CMPX, TROPI, BNP, CDP, PT #### [facility] [address] [place], [place] [id number] [employer] Operator: Sami Dominguez MD Yeast LM Ql (Urine sed) NOT REPORTED Normal [facility] Comment on above: Performed By: #### D CITLALY, LIP, CMPX, TROPI, BNP, CDP, PT #### [facility] [address] [place], [place] [id number] [employer] Operator: Sami Dominguez MD XR CHEST PORTABLEon 08-02-20 19 XR CHEST PORTABLE EXAMINATION: ONE XRAY [...] Cullen Ngo MD 08/02/19 Final result Normal [facility] EXAMINATION: ONE XRA Y VIEW OF THE CHEST 08/02/2019 12:59 pm COMPARISON: None. HISTORY: ORDERING SYSTEM PROVIDED HISTORY: CP TECHNOLOGIST PROVIDED HISTORY: CP FINDINGS: Heart size and pulmonary vessels are within normal limits. Lungs are clear. No focal infiltrates or significant pleural effusions are seen. There is no acute osseous abnormality. Monitor leads overlie the chest. [place] No acute cardiopulmo nary process. [place] Moshe, [facility] Incoming Radiant Results From [employer] - 08/02/2019 1:10 PM EDT EXAMINATION: ONE [...] the chest. IMPRESSION: No acute cardiopulmonary process. [place] Vital Signs Date Time Vital Sign Value Performing Clinician Facility 01-03-2025 14:24-0400 Body mass index (BMI) [Ratio] 34.77 kg/m2 Ming Espinoza DO Work Phone: [facility] 01-03-2025 14:24-0400 Body weight 83.46 kg Ming Espinoza DO Work Phone: [facility] 01-03-2025 14:24-0400 Diastolic blood pressure 82 mm[Hg] Ming Espinoza DO Work Phone: [facility] 01-03-2025 14:24-0400 Heart rate 78 /min Ming Espinoza DO Work Phone: [facility] 01-03-2025 14:24-0400 SaO2% (BldA) [Mass fraction] 97 % Ming Espinoza DO Work Phone: [facility] 01-03-2025 14:24-0400 Systolic blood pressure 124 mm[Hg] Ming Espinoza DO Work Phone: [facility] 10-01-2024 08:19-0500 Body height 154.9 cm Ming Espinoza DO Work Phone: [facility] 10-01-2024 08:19-0500 Body mass index (BMI) [Ratio] 34.2 kg/m2 Ming Espinoza DO Work Phone: [facility] 10-01-2024 08:19-0500 Body weight 82.1 kg Ming Espinoza DO Work Phone: [facility] 10-01-2024 08:19-0500 Diastolic blood pressure 60 mm[Hg] Ming Espinoza DO Work Phone: [facility] 10-01-2024 08:19-0500 Heart rate 88 /min Ming Espinoza DO Work Phone: [facility] 10-01-2024 08:19-0500 SaO2% (BldA) [Mass fraction] 98 % Ming Espinoza DO Work Phone: [facility] 10-01-2024 08:19-0500 Systolic blood pressure 124 mm[Hg] Mnig Espinoza DO Work Phone: [facility] 07-27-2024 08:34-0400 Body temperature 97.81 [degF] Lucero Didion NA[employer] Work Phone: [facility] 07-27-2024 08:34-0400 Diastolic blood pressure 74 mm[Hg] Lucero Didion NA[employer] Work Phone: [facility] 07-27-2024 08:34-0400 Heart rate 83 /min Lucero Didion [employer] Work Phone: [facility] 07-27-2024 08:34-0400 SaO2% (BldA) [Mass fraction] 98 % Lucero Didion NA[employer] Work Phone: [facility] 07-27-2024 08:34-0400 Systolic blood pressure 118 mm[Hg] Lucero Didion NAIL KEGGER Work Phone: [facility] 03-15-2024 17:34-0400 Body height 157.48 cm [employer] Andreia Jerry Work Phone: [facility] 03-15-2024 17:34-0400 Body mass index (BMI) [Ratio] 31.8 kg/m2 [employer] Andreia Jerry Work Phone: [facility] 03-15-2024 17:34-0400 Body temperature 100.3 [degF] [employer] Andreia Jerry Work Phone: [facility] 03-15-2024 17:34-0400 Body weight 78.92 kg [employer] Andreia Jerry Work Phone: [facility] 03-15-2024 17:34-0400 Diastolic blood pressure 79 mm[Hg] [employer] Andreia Jerry Work Phone: [facility] 03-15-2024 17:34-0400 Heart rate 88 /min [employer] Andreia Jerry Work Phone: [facility] 03-15-2024 17:34-0400 Respiratory rate 18 /min [employer] Andreia Jerry Work Phone: [facility] 03-15-2024 17:34-0400 SaO2% (BldA) [Mass fraction] 96 % [employer] Andreia Jerry Work Phone: [facility] 03-15-2024 17:34-0400 Systolic blood pressure 121 mm[Hg] [employer] Andreia Jerry Work Phone: [facility] 07-30-2022 17:40-0400 Body height 157.48 cm Yaneth Toni Other [employer] Other 07-30-2022 17:40-0400 Body mass index (BMI) [Ratio] 36.69 kg/m2 Yaneth Toni Other [employer] Other 07-30-2022 17:40-0400 Body temperature 97.4 [degF] Yaneth Toni Other [employer] Other 07-30-2022 17:40-0400 Body weight 90.99 kg Yaneth Toni Other [employer] Other 07-30-2022 17:40-0400 Diastolic blood pressure 85 mm[Hg] Yaneth Toni Other [employer] Other 07-30-2022 17:40-0400 Respiratory rate 18 /min Yaneth Toni Other [employer] Other 07-30-2022 17:40-0400 SaO2% (BldA) [Mass fraction] 99 % Yaneth Toni Other [employer] Other 07-30-2022 17:40-0400 Systolic blood pressure 124 mm[Hg] Yaneth Toni Other [employer] Other 07-03-2022 09:45-0400 Body height 157.48 cm Estefania Rutgary Other [employer] Other 07-03-2022 09:45-0400 Body mass index (BMI) [Ratio] 36.76 kg/m2 Estefania Vo Other [employer] Other 07-03-2022 09:45-0400 Body temperature 97 [degF] Estefania Vo Other [employer] Other 07-03-2022 09:45-0400 Body weight 91.17 kg Estefania Vo Other [employer] Other 07-03-2022 09:45-0400 Diastolic blood pressure 60 mm[Hg] Estefania Vo Other [facility] [employer] Other 07-03-2022 09:45-0400 SaO2% (BldA) [Mass fraction] 99 % Estefania Vo Other [facility] [employer] Other 07-03-2022 09:45-0400 Systolic blood pressure 110 mm[Hg] Estefania Vo Other [facility] [employer] Other 06-20-2022 16:10-0400 Diastolic blood pressure 68 mm[Hg] DO Ming Espinoza Work Phone: [facility] 06-20-2022 16:10-0400 Heart rate 69 /min DO Ming Espinoza Work Phone: [facility] 06-20-2022 16:10-0400 Respiratory rate 18 /min DO Ming Espinoza Work Phone: [facility] 06-20-2022 16:10-0400 SaO2% (BldA) [Mass fraction] 100 % DO Ming Espinoza Work Phone: [facility] 06-20-2022 16:10-0400 Systolic blood pressure 126 mm[Hg] DO Ming Ibarraman Work Phone: [facility] 06-20-2022 13:15-0400 Body height 157.48 cm DO Ming Espinoza Work Phone: [facility] 06-20-2022 13:15-0400 Body temperature 98.6 [degF] DO Mingshawn Espinoza Work Phone: [facility] 06-20-2022 13:15-0400 Body weight 91.5 kg DO Ming Ibarraman Work Phone: [facility] 06-18-2022 10:45-0400 Diastolic blood pressure 79 mm[Hg] DO Ming Espinoza Work Phone: [facility] 06-18-2022 10:45-0400 Heart rate 66 /min DO Ming Espinoza Work Phone: [facility] 06-18-2022 10:45-0400 Respiratory rate 16 /min DO Ming Espinoza Work Phone: [facility] 06-18-2022 10:45-0400 SaO2% (BldA) [Mass fraction] 100 % DO Ming Espinoza Work Phone: [facility] 06-18-2022 10:45-0400 Systolic blood pressure 130 mm[Hg] DO Ming Espinoza Work Phone: [facility] 06-18-2022 08:08-0400 Body mass index (BMI) [Ratio] 37.8 kg/m2 DO Ming Espinoza Work Phone: [facility] 06-18-2022 07:41-0400 Body height 157.48 cm DO Ming Espinoza Work Phone: [facility] 06-18-2022 07:41-0400 Body weight 93.89 kg DO Ming Espinoza Work Phone: [facility] 06-18-2022 06:26-0400 Body temperature 98.5 [degF] DO Ming Espinoza Work Phone: [facility] 05-30-2022 11:00-0400 Body height 157.48 cm Jesus Parham Other [employer] Other 05-30-2022 11:00-0400 Body mass index (BMI) [Ratio] 36.76 kg/m2 Jesus Parham Other [employer] Other 05-30-2022 11:00-0400 Body temperature 97.6 [degF] Jesus Parham Other [employer] Other 05-30-2022 11:00-0400 Body weight 91.17 kg Jesus Parham Other [employer] Other 05-30-2022 11:00-0400 Diastolic blood pressure 76 mm[Hg] Jesus Parham Other [employer] Other 05-30-2022 11:00-0400 SaO2% (BldA) [Mass fraction] 98 % Jesus Dione Other [employer] Other 05-30-2022 11:00-0400 Systolic blood pressure 128 mm[Hg] Jesus Dione Other [employer] Other 05-02-2022 14:40-0400 Body height 157.48 cm Yaneth Toni Other [employer] Other 05-02-2022 14:40-0400 Body mass index (BMI) [Ratio] 36.76 kg/m2 Yaneth Toni Other [employer] Other 05-02-2022 14:40-0400 Body temperature 97.7 [degF] Yaneth Toni Other [employer] Other 05-02-2022 14:40-0400 Body weight 91.17 kg Yaneth Toni Other [employer] Other 05-02-2022 14:40-0400 Diastolic blood pressure 88 mm[Hg] Yaneth Toni Other [employer] Other 05-02-2022 14:40-0400 Respiratory rate 18 /min Yaneth Toni Other [employer] Other 05-02-2022 14:40-0400 SaO2% (BldA) [Mass fraction] 98 % Yaneth Toni Other [employer] Other 05-02-2022 14:40-0400 Systolic blood pressure 121 mm[Hg] Yaneth Toni Other [employer] Other 04-30-2022 10:10-0400 Body height 157.48 cm [employer] Other [employer] Other 04-30-2022 10:10-0400 Body mass index (BMI) [Ratio] 37.86 kg/m2 Dipika Shantell Other [employer] Other 04-30-2022 10:10-0400 Body temperature 97.4 [degF] Dipika Juniorault Other [employer] Other 04-30-2022 10:10-0400 Body weight 93.9 kg Dipika Juniorault Other [employer] Other 04-30-2022 10:10-0400 Diastolic blood pressure 80 mm[Hg] Dipika Shantell Other [employer] Other 04-30-2022 10:10-0400 Respiratory rate 16 /min Dipika Shantell Other [employer] Other 04-30-2022 10:10-0400 SaO2% (BldA) [Mass fraction] 100 % Dipika Shantell Other [employer] Other 04-30-2022 10:10-0400 Systolic blood pressure 117 mm[Hg] Dipika Stinson Other [facility] [employer] Other 04-01-2022 09:13-0400 Diastolic blood pressure 62 mm[Hg] DO Ming Espinoza Work Phone: [facility] 04-01-2022 09:13-0400 Heart rate 83 /min DO Ming Espinoza Work Phone: [facility] 04-01-2022 09:13-0400 Respiratory rate 16 /min DO Ming Espinoza Work Phone: [facility] 04-01-2022 09:13-0400 SaO2% (BldA) [Mass fraction] 97 % DO Ming Espinoza Work Phone: [facility] 04-01-2022 09:13-0400 Systolic blood pressure 101 mm[Hg] DO Ming Espinoza Work Phone: [facility] 04-01-2022 07:23-0400 Body height 157.48 cm DO Ming Espinoza Work Phone: [facility] 04-01-2022 07:23-0400 Body mass index (BMI) [Ratio] 37.8 kg/m2 DO iMng Espinoza Work Phone: [facility] 04-01-2022 07:23-0400 Body temperature 97.8 [degF] DO Ming Espinoza Work Phone: [facility] 04-01-2022 07:23-0400 Body weight 93.89 kg DO Ming Espinoza Work Phone: [facility] 12-06-2021 16:20-0500 Body height 157.48 cm Yaneth Toni Other [employer] Other 12-06-2021 16:20-0500 Body mass index (BMI) [Ratio] 37.86 kg/m2 Yaneth Toni Other [employer] Other 12-06-2021 16:20-0500 Body weight 93.9 kg Yaneth Toni Other [employer] Other 12-06-2021 16:20-0500 Diastolic blood pressure 89 mm[Hg] Yaneth Toni Other [employer] Other 12-06-2021 16:20-0500 Respiratory rate 18 /min Yaneth Toni Other [employer] Other 12-06-2021 16:20-0500 SaO2% (BldA) [Mass fraction] 97 % Yaneth Toni Other [employer] Other 12-06-2021 16:20-0500 Systolic blood pressure 134 mm[Hg] Yaneth Toni Other [employer] Other 08-02-2019 16:35-0400 Body Temperature 99.3 [degF] [facility] [place] 08-02-2019 16:27-0400 Pulse (Heart Rate) 110 /min [facility] [place] 08-02-2019 16:27-0400 Pulse Oximetry 98 % [facility] [place] 08-02-2019 16:27-0400 Respiratory Rate 14 /min [place] [email or web address] [place] 08-02-2019 16:16-0400 BP Diastolic 56 mm[Hg] [facility] [place] 08-02-2019 16:16-0400 BP Systolic 97 mm[Hg] [facility] [place] 08-02-2019 14:59-0400 BMI (Body Mass Index) 37.79 kg/m2 [facility], [place] 08-02-2019 14:59-0400 Body weight 90.72 kg Vidal Madrigal [facility] [place] 08-02-2019 14:59-0400 Height 154.9 cm Vidal Madrigal [facility] [place] Encounters Encounter Date Encounter Type Care Provider Facility Start: 01-29-2025 End: 01-29-2025 Clinisync Result Encounter Generic External Data Provider [facility] External Department Unsolicited Start: 01-29-2025 End: 01-29-2025 Clinisync Result Encounter Generic External Data Provider [facility] External Department Unsolicited Start: 01-03-2025 End: 01-03-2025 Office outpatient visit 25 minutes Ming Espinoza DO Work Phone: [facility] Comment on above: Polycystic kidney di sease (Primary Dx); Anemia of renal disease; Immunosuppressive management encounter following kidney transplant ([facility]); Renal transplant recipient ([facility]); Type 2 diabetes mellitus with stage 3a chronic kidney disease, without long-term current use of insulin ([facility]) ([facility]); Dyslipidemia ([facility]) Start: 01-03-2025 End: 01-03-2025 ambulatory MING ESPINOZA Not Available Start: 12-03-2024 End: 12-03-2024 Clinisync Result Encounter Generic External Data Provider [facility] External Department Unsolicited Start: 12-03-2024 End: 12-03-2024 Clinisync Result Encounter Generic External Data Provider [facility] External Department Unsolicited Start: 11-12-2024 End: 11-12-2024 ambulatory LEO [facility] Start: 11-04-2024 End: 11-07-2024 Clinisync Result [...] 10-14-2024 ambulatory Ming Espinoza DO Work Phone: [facility] Work Phone: Start: 10-14-2024 End: 10-14-2024 Departed Referred Ming Espinoza DO Work Phone: [facility] Start: 10-02-2024 End: 10-02-2024 Clinisync Result Encounter Generic External Data Provider [facility] External Department Unsolicited Start: 10-02-2024 End: 10-02-2024 Clinisync Result Encounter Generic External Data Provider [facility] External Department Unsolicited Start: 10-01-2024 End: 10-01-2024 Office outpatient visit 40 minutes Ming Preston Alexis DO Work Phone: [facility] Comment on above: Benign essential hyp ertension ([facility]/HCC) (Primary Dx); Renal transplant recipient ([facility]); Immunosuppressive management encounter following kidney transplant ([facility]); Anemia of renal disease; Iron deficiency anemia, unspecified iron deficiency anemia type; Type 2 diabetes mellitus with stage 3a chronic kidney disease, without long-term current use of insulin (HCC) ([facility]); Dyslipidemia ([facility]); Fibromyalgia; Need for immunization against influenza Start: 10-01-2024 End: 10-01-2024 ambulatory MING A ALEXIS Not Available Start: 09-14-2024 End: 09-14-2024 Office [...] encounter procedure Ming Alexis DO Work Phone: [facility] Work Phone: Start: 08-25-2024 End: 08-25-2024 ambulatory Ming Espinoza DO Work Phone: [facility] Work Phone: Start: 08-02-2024 End: 08-03-2024 External Result Encounter Blake Hinojosa DO Work Phone: [facility] Unsolicited Start: 08-02-2024 End: 08-03-2024 External Result Encounter Blake Peng Micaela DO Work Phone: [facility] External [facility] Unsolicited Start: 08-02-2024 End: 08-02-2024 Office outpatient visit 10 minutes Blake Ginette Hinojosa DO Work Phone: [facility] Comment on above: Cyst of left ovary ( Primary Dx); Dyspareunia in female Start: 08-02-2024 End: 08-02-2024 ambulatory BLAKE HINOJOSA Not Available Start: 08-02-2024 End: 08-02-2024 Patient encounter procedure DO Ming Espinoza Work Phone: [facility] Work Phone: Start: 08-02-2024 End: 08-02-2024 ambulatory DO Ming Espinoza Work Phone: [facility] Work Phone: Start: 07-31-2024 End: 07-31-2024 Clinisync Result Encounter Generic External Data Provider [facility] External Department Unsolicited Start: 07-31-2024 End: 07-31-2024 Clinisync Result Encounter Generic External Data Provider [facility] External Department Unsolicited Start: 07-27-2024 End: 07-27-2024 Office outpatient visit 15 minutes Lucero Hudson NAIL KEGGER Work Phone: [facility] Comment on above: Acute non-recurrent pansinusitis (Primary Dx); Side effect of medication Start: 07-27-2024 End: 07-27-2024 ambulatory MING ESPINOZA Not Available Start: 07-07-2024 End: 07-07-2024 ambulatory [facility] Start: 07-02-2024 End: 07-02-2024 ambulatory [facility] Start: 06-29-2024 End: 06-29-2024 Clinisync Result [...] Department Unsolicited Start: 05-19-2024 End: 05-19-2024 ambulatory [facility] Start: 04-27-2024 End: 04-27-2024 ambulatory MUNIRA PHAN [facility] Start: 04-23-2024 ambulatory [facility] Start: 04-19-2024 End: 04-19-2024 ambulatory BLAKE HINOJOSA Not Available Start: 04-14-2024 End: 04-14-2024 ambulatory MUNIRA PHAN Not Available Start: 03-23-2024 End: 03-23-2024 ambulatory MING ESPINOZA Not Available Start: 03-15-2024 End: 03-15-2024 ambulatory Andreia Edwards [facility] Work Phone: Start: 03-15-2024 End: 03-15-2024 Departed Referred PULP AND PAPER TESTERRoxy Edwards Work Phone: [facility]-Lab [facility] [place] Work Phone: Start: 03-15-2024 End: 03-15-2024 Patient encounter procedure PULP AND PAPER TESTER Andreia Edwards Work Phone: [facility] Work Phone: Start: 11-06-2023 End: 11-06-2023 Patient encounter procedure DO Ming Espinoza Work Phone: [facility]-Lab [address] Work Phone: Start: 11-06-2023 End: 11-06-2023 ambulatory DO Ming Espinoza Work Phone: [facility] Work Phone: Start: 07-30-2022 End: 07-30-2022 ambulatory Yaneth Toni Other [employer] Other Start: 07-30-2022 Office outpatient vi sit 25 minutes Yaneth Toni [facility] Start: 07-29-2022 End: 07-30-2022 ambulatory YANETH TONI Facility: Start: 07-16-2022 End: 07-16-2022 ambulatory DO Ming Espinoza Work Phone: [facility] Work Phone: Start: 07-16-2022 End: 07-16-2022 Patient encounter procedure DO Ming Espinoza Work Phone: [facility] Start: 07-03-2022 End: 07-03-2022 ambulatory Estefania Vo Other [employer] Other Start: 07-03-2022 Follow-up encounter Estef[facility] Start: 06-20-2022 End: 06-20-2022 ambulatory Jesus Parham Other [employer] Other Start: 06-20-2022 Telephone encounter Jesus Macedo [facility] V[facility] Surgery Start: 06-20-2022 End: 06-20-2022 Emergency department patient visit DO Ming Espinoza Work Phone: [facility]-Emergency Room Start: 06-18-2022 End: 06-18-2022 Admission to same day surgery center DO Ming Espinoza Work Phone: [facility]-Surgery Center Main [place] Start: 06-14-2022 End: 06-14-2022 Patient encounter procedure DO Ming Espinoza Work Phone: [facility]-Pre-Surgical Testing Start: 06-06-2022 End: 06-07-[address] BRINDA HINOJOSA Facility:[facility]1 Start: 06-05-2022 End: 06-05-2022 Patient encounter procedure DO Ming Espinoza Work Phone: [facility]-Pre-Surgical Testing Start: 06-03-2022 End: 06-03-2022 ambulatory Jesus Parham Other [employer] Other Start: 06-03-2022 Encounter for other preprocedural examination Jesus Parham [facility] Vascular Surgery Start: 06-03-2022 Telephone encounter Jesus adler [facility] Start: 05-30-2022 End: 05-30-2022 ambulatory Jesus Parham Other [employer] Other Start: 05-30-2022 FQ visit new patient Jesus Tarik isabel [facility] Vascular Surgery Start: 05-30-2022 End: 05-30-2022 Patient encounter procedure DO Ming Espinoza Work Phone: [facility]-Ultrasound [facility] Vascular Start: 05-29-[address] BLAKE HINOJOSA [facility] ity:H1 Start: 05-02-2022 End: 05-02-2022 ambulatory Yaneth Toni Other [employer] Other Start: 05-02-2022 Office outpatient vi sit 25 minutes Yaneth Toni [facility] Start: 04-30-2022 End: 04-30-2022 ambulatory Dipika Stinson Other [employer] Other Start: 04-30-2022 Office outpatient vi sit 15 minutes Dipika Stinson [facility] Start: 04-30-2022 Encounter for preprocedural laboratory examination YANETH TONI [facility] Start: 04-29-2022 Encounter for other preprocedural examination DR DOCTOR ALEJANDRO [facility] Start: 04-27-2022 End: 04-28-2022 Encounter for other preprocedural examination DR MING ESPINOZA Facility:H1 Start: 04-27-2022 End: 04-28-[address] MING ESPINOZA Facility:[facility] Start: 04-27-2022 End: 04-28-2022 Encounter for preprocedural laboratory examination YANETH TONI Facility:[facility]1 Start: 04-03-2022 Encounter for other specified special examinations DR DOCTOR ALEJANDRO [facility] Start: 04-01-2022 End: 04-01-2022 Admission to [...] 02-26-2022 End: 02-26-2022 ambulatory Shabbir Jones Other [employer] Other Start: 02-26-2022 Telephone encounter Shabbir [employer] Manager Start: 12-06-2021 End: 12-06-2021 ambulatory Yaneth Toni Other [employer] Other Start: 12-06-2021 Office outpatient vi sit 25 minutes Yaneth Toni [facility] Start: 12-03-2021 End: 12-04-2021 ambulatory YANETH MUÑOZ Facility:H1 Start: 09-01-2021 End: 09-02-[address] MING ESPINOZA Facility:[facility]1 Start: 08-02-2019 End: 08-02-2019 Emergency department patient visit VIDAL MADRIGAL [facility] Start: 08-02-2019 End: 08-02-2019 Emergency department patient visit Vidal Madrigal Work Phone: [facility] ED Comment on above: Acute sepsis (HCC) ( Primary Dx); Acute cystitis without hematuria; Chronic renal failure, stage 4 (severe) (HCC); Polycystic kidney disease Procedures Date Procedure Procedure Detail Performing Clinician Start: 01-29-2025 ALL CBC WITH AUTO DIFF Generic External Data Provider Start: 12-03-2024 ALL CBC WITH AUTO DIFF Generic External Data Provider Start: 11-04-2024 Bacteria identified in Urine by Culture Generic External Data Provider Start: 10-14-2024 ALL URINALYSIS Generic External Data Provider Start: 10-02-2024 ALL MAGNESIUM Generic E xternal Data Provider Start: 10-02-2024 ALL PHOSPHOROUS Generic External Data Provider Start: 10-02-2024 ALL URIC ACID Generic E xternal Data Provider Start: 10-02-2024 [facility] CMP (CMP) (FOR [facility] USE) Generic External Data Provider Start: [...] Provider Start: 08-31-2024 [facility] CMP (CMP) (FOR [facility] USE) Generic External Data Provider Start: [...] manufacturers or methods may not be comparable. [facility] [employer] pneumatic tube operator and method: RUSSELL UNICEL DXI, 2 SITE IMMUNOENZYMATIC SANDWICH ASSAY. Start: 08-02-2024 Plain chest X-ray DO Blanche Espinoza Work Phone: Start: 08-02-2024 Carcinoembryonic ant igen cea Blake Hinojosa DO Work Phone: Comment on above: Result Comment: Seri al tumor marker results determined by assays using different manufacturers or methods may not be comparable. [facility] pneumatic tube operator and method: RUSSELL UNICEL DXI, 2 SITE IMMUNOENZYMATIC ?SANDWICH? ASSAY. PERFORMED BY: [facility] [address] [facility] [place] [address] PATHOLOGIST SOLDER MAKING LABORER ANAHY MCKEE M.D. Performed By: #### C A125 ####[facility] ,#### CEA ####[facility] [id number] [facility] Start: 08-02-2024 Immunoassay tumor an [...] of renal transplant Tanja l transplant recipient ([facility]/HCC) Ming Espinoza DO Work Phone: History of renal transplant Tanja l transplant recipient ([facility]) Ming Espinoza DO Work Phone: SARS Antigen (LFIA) DO Angy Espinoza Work Phone: Plan of Treatment Date Care Activity Detail Author Start: 04-01-2032 Screening for malign ant neoplasm of colon [facility] Healthcare Start: 08-25-2025 Screening for malign ant neoplasm of breast Mammogram [facility] Start: 04-23-2025 Urine screening for protein Diabetes: Urine Protein Screening [facility] Start: 04-06-2025 End: 04-06-2025 Patient encounter procedure 04/06/2025 8:15 AM EDT [facility] [address] [place] [address] Ming Espinoza DO [address] [place] [address] [facility] Start: 04-01-2025 End: 04-01-2025 Patient encounter procedure 04/01/2025 8:15 AM EDT Office Visit [facility] [address] [place] [address] Ming Espinoza, DO [address] [place] [address] [facility] Start: 10-14-2024 Bacteria identified in Urine by Culture Urine Culture [facility] Start: 10-14-2024 Urine culture [facility] Start: 10-01-2024 End: 10-01-2024 Patient encounter procedure 10/01/2024 8:15 AM EST Office Visit [facility] [address] [place] [address] Ming Espinoza, DO [address] [place] [address] [facility] Start: 09-14-2024 End: 09-14-2024 Patient encounter procedure 09/14/2024 8:45 AM EST Office Visit [facility] [address] [place] [address] Blake Hinojosa, DO [address] [place] [address] [facility] Start: 08-26-2024 Urine screening for protein Diabetes: Urine Protein Screening [facility] Start: 08-02-2024 End: 08-02-2024 Patient encounter procedure 08/02/2024 11:00 AM EDT Office Visit [facility] [address] [place], [place] [address] Blake Hinojosa, DO [address] [place] [address] [facility] Start: 08-02-2024 End: 08-02-2024 Professional / ancillary services management 08/02/2024 10:15 AM EDT Ancillary Procedure [facility] [address] [place] [address] [facility] Start: 08-02-2024 [facility] Start: 07-24-2024 Hemoglobin A1c measurement Violet betes: Hemoglobin A1C [facility] Healthcare Start: 06-06-2024 Influenza vaccination Influenza Vacc ine (#1) [facility] Start: 03-16-2024 Bacteria identified in Urine by Culture [facility] Start: 03-15-2024 Bacteria identified in Urine by Culture [facility] Start: 11-06-2023 [facility] Start: 07-29-2023 Urine screening for protein Diabetes: Urine Protein Screening [facility] Start: 07-16-2023 Screening for malign ant neoplasm of breast Mammogram [facility] Start: 06-18-2022 [facility] Start: 06-18-2022 [facility] Start: 04-01-2022 [facility] Work Phone: Start: 06-06-2019 Influenza vaccination Flu vaccine (# 1) [place], [place] Start: 2015 Lipid screen Lipid screen [place], [place] Start: 1996 Cervical cancer screen Cervical canc er screen [place], [place] Start: 1994 DTaP/Tdap/Td vaccine (1 - Tdap) DTaP/Tdap/Td vaccine (1 - Tdap) [place], [place] Start: 1990 HIV screen HIV screen [place], [place] Start: 1985 Glaucoma screening Diabetes: R etinopathy Screening [facility] Start: 1975 Creatinine monitoring Creatinine mon itoring [place], [place] Start: 1975 Potassium monitoring Potassium monit [place], [place] Start: 1975 Screening for malign ant neoplasm of colon [facility] 24 hour urine measurement [facility] Albumin [Mass/volume ] in Serum or Plasma [facility] Albumin/Globulin ratio [facility] Aldolase measurement [facility] End: 08-02-2019 Bacteria identified Cx Nom (U) Urine Culture Microbiology STAT One Time for 1 Occurrences starting 08/02/2019 until 08/02/2019 [place] Comment on above: One Time for 1 Occur rences starting 08/02/2019 until 08/02/2019 Bacteria identified Cx Nom (U) Urine Culture Microbiology STAT 08/02/2019 1:00 PM EDT [place] Bacteria identified in Urine by Culture URINE CULTURE, ROUTINE Lab Routine 06/10/2024 1:35 PM EDT [facility] Bacteria identified in Urine by Culture URINE CULTURE, ROUTINE Lab Routine 11/04/2024 8:55 PM EST [facility] CA 125 CA 125 Lab Routi ne Cyst of left ovary Ordered: 08/02/2024 [facility] Comment on above: Ordered: 08/02/2024 Cancer Ag 125 [Units/volume] in Serum or Plasma [facility] Carcinoembryonic Ag [Mass/volume] in Serum or Plasma [facility] Lab Routine Cyst of left ovary Ordered: 08/02/2024 [facility] Work Phone: Comment on above: Ordered: 08/02/2024 End: 08-02-2019 Culture blood #1 Culture blood #1 Microbiology STAT One Time for 1 Occurrences starting 08/02/2019 until 08/02/2019 [place] Comment on above: One Time for 1 Occur rences starting 08/02/2019 until 08/02/2019 End: 08-02-2019 Culture blood #2 Culture blood #2 Microbiology STAT One Time for 1 Occurrences starting 08/02/2019 until 08/02/2019 [place] Comment on above: One Time for 1 Occur rences starting 08/02/2019 until 08/02/2019 EKG 12 Lead EKG 12 Lead ECG STAT 08/02/2019 12:25 PM EDT [place] Electrophoresis: [id number] [facility] Electrophoresis: [id number] [facility] Electrophoresis: beta-globulin [facility] Electrophoresis: laura ma globulin [facility] Globulin [Mass/volum e] in Serum [facility] Homogenous nuclear A b pattern [Titer] in Serum [facility] IgA [Mass/volume] in Serum or Plasma [facility] IgG [Mass/volume] in Serum or Plasma [facility] IgM [Mass/volume] in Serum or Plasma [facility] Immunofixation for Urine [facility] Initiate Oxygen Ther apy Protocol Initiate Oxygen Therapy Protocol Respiratory Care Routine Daily until discontinued starting 08/02/2019, [facility] [place] [employer] [facility] Comment on above: Daily until disconti nued starting 08/02/2019, 2 completed End: 08-02-2019 Lactate, Sepsis Lactate, Sepsis Lab Timed Now Then Every 2hr for 2 Occurrences starting 08/02/2019 until 08/02/2019, 1 completed [facility] [place] Comment on above: Now Then Every 2hr f or 2 Occurrences starting 08/02/2019 until 08/02/2019, 1 completed Measurement of monoc lonal protein concentration [facility] Nuclear Ab [Titer] i n Serum [facility] Patient Education [facility] Work Phone: Patient referral [facility] Work Phone: Potassium [Moles/vol ume] in Serum or Plasma [facility] Work Phone: Protein [Mass/volume ] in Serum or Plasma [facility] Protein [Mass/volume ] in Urine [facility] Serum immunofixation [facility] Immunizations Immunization Date Immunization Notes Care Provider Chirag [facility] 10-01-2024 Influenza, Madin Roman by Canine Kidney, subunit, trivalent, injectable, contains preservative Ming Espinoza DO Work Phone: [facility] 10-26-2023 Influenza, injectabl e, Madin Sarah Canine Kidney, preservative free, quadrivalent Generic Provider [facility] 10-26-2023 influenza virus vacc ine, unspecified formulation Generic Provider [facility] 10-13-2021 COVID-19 [id number].COV2.S (Urban Traffic) DO Ming Espinoza Work Phone: [facility] 05-29-2020 influenza, high dose seasonal, preservative-free Generic Provider [facility] 08-11-2019 influenza, injectabl e, madin sarah canine kidney, preservative free Generic Provider [facility] 01-26-2018 pneumococcal polysaccharide vaccine, 23 valent Generic Provider [facility] 07-22-2014 seasonal influenza, intradermal, preservative free Generic Provider [facility] Payers Date Payer Category Payer Private Health Insurance [employer] [id number] 2023 Unknown [employer] [id number] 2023-Present [address] [place] [address] [id number] 2015 Unknown [employer] [address] xxxxxxxxx 2015-Present [phone] [address] [place] [address] xxxxxxxxx [id number] 1975 Unknown [id number] 1975 Unknown [id number] 1975 Unknown [id number] 1975 Unknown [id number] 1975 Unknown [id number] 2.16.840.1.672983.3.579. 2.593 1975 Unknown [id number] 2.16.840.1.762096.3.579. 2.593 1975 Unknown [id number] 2.16.840.1.975443.3.579. 2.593 1975 Unknown [id number] 2.16.840.1.508861.3.579. 2.593 1975 Unknown [id number] 2.16.840.1.927005.3.579. 2.593 1975 Unknown [id number] 2.16.840.1.382451.3.579. 2.1259 1975 Unknown [id number] 2.16.840.1.956933.3.579. 2.1259 1975 Unknown [id number] 2.16.840.1.988413.3.579. 2.1259 1975 Unknown [id number] 2.16.840.1.330191.3.579. 2.1259 1975 Unknown [id number] 2.16.840.1.554120.3.579. 2.1259 1975 Unknown [id number] 2.16.840.1.411822.3.579. 2.1259 1975 Unknown [id number] 2.16.840.1.816750.3.579. 2.1259 1975 Unknown [id number] 2.16.840.1.208348.3.579. 2.1259 1975 Unknown [id number] 2.16.840.1.267947.3.579. 2.1259 1975 Unknown [id number] 2.16.840.1.818269.3.579. 2.1259 1959 Self-pay [id number] 1959 Unknown [id number] 1959 Unknown [id number] 2.16.840.1.382832.19 Unknown [id number] 2.16.840.1.671466.19 Unknown [id number] 2.16.840.1.316332.3.579. 2.531 Unknown [id number] 2.16.840.1.492741.3.579. 2.531 Unknown [id number] 2.16.840.1.132132.3.579. 2.531 Unknown [id number] 2.16.840.1.004222.3.579. 2.531 Unknown [id number] 2.16.840.1.060515.3.579. 2.531 Social History Date Type Detail Facility Tobacco smoking stat [email or web address]IS Unknown if ever smoked [facility] Sex Assigned At Not on file [employer] Start: 04-19-2024 End: 01-03-2025 Sex Assigned At [employer] Other Start: 06-05-2022 End: 03-13-2023 Tobacco smoking status MOIS Never smoked tobacco (finding) [facility] Start: 1975 Sex Assigned At Female [facility] Start: 03-13-2023 Tobacco use and exposure Smokeless tobacco non-user [facility] Start: 07-27-2024 End: 01-03-2025 Alcoholic beverage intake Lifetime non-drinker (finding) [facility] Start: 04-19-2024 End: 01-03-2025 History of Social function [facility] How [...] Start: 08-26-2024 End: 10-15-2024 Sex Female (finding) [facility] Medical Equipment Procedure Code Equipment Code Equipment Origin al Text Equipment Identifier Dates Use as instructed [id number] Start: 06-10-2023 End: 06-09-2024 Goals Date Patient Goal Desired Activity /State Clinical Notes 05-17-2020 to 02-02-2025 Carol Camacho MA - 09/14/2024 8:45 AM Elizabeth Camacho MA - 08/02/2024 11:00 AM Dar Hudson NP - 07/27/2024 8:20 AM EDT Note Date & Type Note Facility 02-02-2025 Note Reviewed poatssium teresa poe and pt's request to switch to 10MEQ tabs with Dr. Monterroso. PO received ok to change to 10MEQ and increase to 30MEQ daily. Called pt notified of change and verified pharmacy. Pt requested refills on MagOx that her pharmacy told her the doctor did not approve. Licensed Insurance Agent refilled MagOx. Medication list updated. [facility] 11-24-2024 Note Patient called stati adair a urine culture was supposed to be done on 11/12/24. No urine culture was done. Patient states she is still having symptoms of UTI. Patient would like a callback. [facility] 11-12-2024 Note Transplant Clinic Patient [...] recently was seen at the ER in [facility], started on a course of Cipro, final [...] flank pain. None today. Will order Ultrasound hughes and transplant kidney. Pt known hx: Chronic [...] 04/23/2024 Endocrine: L (more content not included)... [facility] 11-09-2024 Note Patient called in [...] admission. Patient was updated and verbalized understanding. [facility] 10-21-2024 Note Pt was notified of n ew order from Dr. Blanchard by phone to complete Keflex 500mg TID for 1 week. Pt informed and verbalized understanding. RX was sent. [facility] 10-21-2024 Note Noted patient call [...] she had sepsis and was hospitalized @ [facility] four years ago. She at work today and seems in good humor. [facility] 10-21-2024 Note Per phone order of Kody Mcqueen MD, patient notified via phone call to decrease their medication Myfortic dose twice a day 360 mg , will now be on 360mg twice a day an no need for urology FU at this time. Pt informed by phone and verbalized understanding. [facility] 10-21-2024 Note Pt called wanting to talk to Lu. She has uti sx's with low grade fever, chills, abd pain. She didn't think of this yesterday when she spoke with Lu. She does want to go ahead and get the abx called into [facility] in [facility] 10-20-2024 Note Noted urine culture report showing E coli MDRO from [facility]. Pt reports using BID Methamine after [...] Pt states prior to renal transplant her marking machine tender prescribed Bactrim for her to prevent UTIs and she wishes that the E Coli was gone from her urine. Verbalized understanding of colonization. Have asked urology clinic [place] staff via [employer] Secure Chat to contact pt for FU with Dr. Blanchard. Will discuss with this MD plan for return visit. [facility] 10-20-2024 Note Faxed stat request t o [facility] for results of 10/14/24 urine culture. [facility] 10-12-2024 Note Patient called, stat es she is having urinary burning, urgency and cloudy urine. Denies fever. Has a history of frequent UTI's and sees Dr. Blanchard, follow up appt is scheduled next month. Questions if she can get urine culture order sent to local lab at [facility]. . Per Dr. Monterroso, order sent. Reviewed tac level of 3.7, no changes at this time due to possible infection. Patient verbalized understanding. [facility] 09-14-2024 History of Present illness Narrative Images from the original note were not included. Blake Hinojosa, DO Obstetrics and Gynecology Mandeep Puri 1975 09/14/24 [id number] Ultrasound Follow Up Exam Chief Complaint Patient [...] LOW TRANSVERSE 07/23/2003 COLONOSCOPY 04/01/2022 Dx Diverticulosis MA BREAST REDUCTION 1996 TOTAL ABDOMINAL HYSTERECTOMY 03/19/2017 [...] 09/14/24 Time 5:00PM. documented in this encounter [facility] 08-06-2024 Note Patient tac level is 8.2, per Dr Sharla anderson, patient notified to decrease envarsus by 0.5 mg, will now be on 1.5 mg daily of envarsus, repeat level in one week. Patient verbalized understanding. [facility] 08-02-2024 History of Present illness Narrative Images from the original note were not included. Blake Hinojosa, DO Obstetrics and Gynecology Mandeep Puri 1975 08/02/24 [id number] Yearly Wellness Exam Chief Complaint Patient presents [...] LOW TRANSVERSE 07/23/2003 COLONOSCOPY 04/01/2022 Dx Diverticulosis MA BREAST REDUCTION 1996 TOTAL ABDOMINAL HYSTERECTOMY 03/19/2017 [...] and the decisions I made. Signature Lona Hinojosa,D.O. Date 08/02/24 Time 5:00PM. documented in this encounter [facility] 07-27-2024 History of Present illness Narrative [...] Active Problem List Diagnosis Benign essential hypertension ([facility]) Fibromyalgia MICHELLE (iron deficiency anemia) RADHA (obstructive sleep apnea) Renal transplant recipient ([facility]) Type 2 diabetes mellitus with diabetic chronic kidney disease ([facility]) Mixed anxiety and depressive disorder Dyslipidemia ([facility]) Gastroesophageal reflux disease Immunosuppressive management encounter following kidney transplant ([facility]) ADPKD (autosomal dominant polycystic kidney disease) Polyarthritis of multiple sites Anxiety Anemia of renal disease NSTEMI (non-ST elevated myocardial infarction) ([facility]) Polycystic kidney disease Secondary hyperparathyroidism ([facility]) Tonsillolith Stage 4 chronic kidney disease ([facility]) Chronic kidney disease, stage 5 ([facility]) Gout Review of Systems Constitutional: Positive [...] Lucero Hudson NP documented in this encounter [facility] 07-09-2024 Note Positive urine cultu re. Per Dr. Blanchard, Macrobid 100 mg BID x 7 days ordered to patient's pharmacy. Pt was informed and verbalized understanding. [facility] 07-07-2024 Note Chief complaint: Rec [...] on file Intimate Partner Violence: Unknown (11/27/2023) [place] Safety & Environment Fear of Current or Ex-Partner: Not on file Emotionally Abused: Not on file Physically Abused: Not on file Sexually Abused: Not on file Physically or Sexually Abused: Not on file Housing Stability: Not on file Past Medical/Surgical History: Medical History Past Medical History: Diagnosis Date Anxiety Chronic kidney disease, stage 4 (severe) ([facility]) COVID-19 Depressive disorder Fibromyalgia Gastroesophageal reflux [...] cyst which she will discuss with her marking machine tender. At this point we will recommend continuing the methenamine prophylaxis. She does not prove effective can consider lowering the Myfortic. Sree Blanchard MD [facility] 06-15-2024 Note Patient notified of Augmentin Rx sent in to pharmacy for positive urine culture by NORMA Jasso per [employer] secure chat. Patient verbalizes understanding. [facility] 06-10-2024 Note Patient requests uri ne culture order to be refaxed to [facility]. as the hospital is telling her not received. Order promptly refaxed with confirmation received. Pt advised to FU with coordinator and alternative fax number if hospital reports again no receipt of the order. She acknowledged understanding [facility] 06-09-2024 Note Tac level 3.0, [...] Patient requests order to be faxed to [facility]. [facility] 05-19-2024 Note Chief complaint: Rec [...] on file Intimate Partner Violence: Unknown (11/27/2023) [place] Safety & Environment Fear of Current or Ex-Partner: Not on file Emotionally Abused: Not on file Physically Abused: Not on file Sexually Abused: Not on file Physically or Sexually Abused: Not on file Housing Stability: Not on file Past Medical/Surgical History: Past Medical History: Diagnosis Date Anxiety Chronic kidney disease, stage 4 (severe) ([facility]) COVID-19 Depressive disorder Fibromyalgia Gastroesophageal reflux [...] back after the CT. Sree Blanchard MD [facility] 04-29-2024 Note Patient urine cultur [...] prior to urology appointment. Patient verbalized understanding. [facility] 04-27-2024 Note 04/27/24 Chief Complaint [...] Txp Referring: Yaneth Muñoz Preferred Pharmacy: [facility] - [place], [place] - [address] [place] [address] [place] [address] [facility] [address] [facility]/pharmacy #[id number] [place], [place] - [address] [place] [address] [address] OF [address] [address] [facility] [place], [place] - [address] [facility] [address] [facility] [address] Subjective Visit Vitals BP 121/60 (BP Location: [...] Dose Status amLODIPine (Norvasc) 10 mg tablet [id number] Yes Take 1 tablet (10 mg) by mouth in the morning. Aguila Parrish MD Taking Active bumetanide (Bumex) 2 mg tablet [id number] Take 1 tablet (2 mg) by mouth in the morning. Patient not taking: Reported on 11/08/2022 Aguila Parrish MD 10/25/22 2359 docusate sodium (Colace) 100 mg capsule [id number] Take 1 capsule (100 mg) by mouth in the morning and at bedtime. Patient not taking: Reported on 09/01/2023 Paty Ansari NP Active DULoxetine (Cymbalta) [address] capsule [id number] Yes Take 1 capsule every day by oral route. Historical ProviderMD Taking Active Envarsus XR 1 mg tablet ER [id number] Yes TAKE 3 TABLETS BY MOUTH ONCE DAILY IN THE MORNING. TAKE ALONG WITH 0.75 MG TABLETS DIRECTED FOR TOTAL DOSE UP TO 4.5 MG PER DAY. Patient taking differently: Take 2 mg by mouth in the morning. Aguila Parrish MD Taking Flag for Review famotidine (Pepcid) 20 mg tablet [id number] Yes Take 1 tablet (20 mg) by mouth in the morning. Patient taking differently: Take 20 mg by mouth if needed. Aguila Parrish MD Taking Active febuxostat (Uloric) 40 mg tablet [id number] Take 0.5 tablets every day by oral route. Historical ProviderMD Active ferrous sulfate 325 (65 Fe) MG tablet [id number] Yes Take 65 mg by mouth every other day. Historical ProviderMD Taking Active fish oil (Lyman-3) 60-90-500 mg capsule [id number] Take 2 capsules (1,000 mg) by mouth in the morning and at bedtime. Patient not taking: Reported on 12/23/2023 Sujit Monterroso MD Active Levemir FlexPen 100 unit/mL (3 mL) pen [id number] INJECT 12 UNITS SUBCUTANEOUS IN AM 30 DAYS Historical Provider, Active magnesium oxide (Mag-Ox) 400 mg (241.3 mg magnesium) tablet [id number] Yes TAKE 2 TABLETS BY MOUTH IN THE MORNING AND 2 TABLETS AT BEDTIME Sree Blanchard MD Taking Active mycophenolate (Myfortic) 180 mg EC tablet [id number] Yes Take 4 tablets (720 mg) by mouth in the morning and at bedtime. Aguila Parrish MD Taking Active oxyCODONE-acetaminophen (Percocet) 5-325 mg tablet [id number] Take 1 tablet by mouth every 6 (six) hours if needed for severe pain (8-10 pain score) for up to 20 doses. Patient not taking: Reported on 09/01/2023 Paty Ansari NP Active potassium chloride CR (Klor-Con M20) 20 mEq ER tablet [id number] Yes Take 1 tablet (20 mEq) by mouth in the morning. Do not crush or chew. Andrea Elizondo MD Taking Active pravastatin (Pravachol) 40 mg tablet [id number] Yes Take 1 tablet (40 mg) by mouth at bedtime. Patient taking differently: Take 40 mg by mouth at bedtime. 40 mg 4 times a week. Fri Sat Kevin Raymond MD Taking Active semaglutide (Ozempic) 2 mg/dose (8 mg/3 mL) pen injector [id number] Yes Inject 2 mg under the skin every 7 (seven) days. Historical Provider, Taking Active tacrolimus ER (Envarsus XR) 0.75 mg tablet ER [id number] Yes Take 2 tablets (1.5 mg) by mouth in the morning. Script total 4.5 mg daily Priyanka Villanueva MD Taking Active tacrolimus ER (Envarsus XR) 1 mg tablet ER [id number] Yes Take 3 tablets (3 mg) by mouth in the morning. Script total 4.5 mg daily Priyanka Villanueva MD Taking Active Immunization History Administered Date(s) Administered Ainsley Sars-Cov-2 Vaccination 10/13/2021 Patient Active Problem List Diagnosis Anxiety COVID-19 Depressive disorder Gastroesophageal reflux disease Gout Primary hyper (more content not included)... [facility] 04-23-2024 Note Patient TAC level, [...] making change in dose. Patient verbalized understanding. [facility] 04-21-2024 Note Patient called, stat carmella she has had frequent UTI's that her [...] urine culture to be done, voiced understanding. [facility] 03-25-2024 Note Patient called, stat caremlla PCP stopped Bactrim and started Keflex for E-coli in urine. On 500 mg tid x 7 days. Advised to hydrate well and get labs, repeat urine culture once completed. Voiced understanding. [facility] 03-16-2024 Note Patient called benigno borrero she is currently being treated for a UTI with bactrim BID for 7 days. [facility] 02-25-2024 Note Received a call from the patient regarding the non-compliant lab letter. Explained to the patient that we had gotten some labs on her but not a CMP or BMP. Patient stated that she has always gotten her labs drawn at [facility]. She will be getting labs drawn tomorrow and she will make sure that the draw the correct labs and have the results sent to us. [facility] 07-30-2022 Evaluation note Encounter Date [...] She has gout and follows with a auto rental clerk. She takes Urolic and denies any recent gout flare Jul, Metabolic acidemia, unspecified (ICD-10 - P19.9) She has metabolic acidosis due to the advanced CKD. Continue oral Sodium Bicarbonate [employer] Other 09-28-2022 Evaluation note* Encounter Date Diagnosis [...] disease, unspecified CKD stage (ICD-10 - N18.9) [employer] [facility] Encounter Date Diagnosis Assessment Notes Treatment Notes Treatment Clinical Notes May, Pre-op testing (ICD-10 - Z01.818) [employer] Other 08-25-2022 Evaluation note* Encounter Date Diagnosis [...] will schedule this in the near future. [employer] Other 07-28-2022 Evaluation note* Encounter Date Diagnosis [...] explained to her the potential need of MANAGER MED SURG in future. I discussed with her different options of MANAGER MED SURG including PD, HTN renal transplant. I provide [...] stephens s gout and follows with a auto rental clerk. She takes Urolic and denies any recent gout flare [employer] Other 07-26-2022 Evaluation note* Encounter Date Diagnosis [...] care provider if no improvement of symptoms. [employer] Other 05-24-2022 Evaluation note* Encounter Date Diagnosis Assessment Notes Treatment Notes Treatment Clinical Notes February, Screening for colon cancer (ICD-10 - Z12.11) [employer] Other 03-03-2022 Evaluation note* Encounter Date Diagnosis [...] explained to her the potential need of MANAGER MED SURG in future. I discussed with her different options of MANAGER MED SURG including PD, HTN renal transplant. I provide [...] She has gout and follows with a auto rental clerk. She takes Urolic and denies any recent gout flare [employer] Other 06-25-2021 NotePatient Outreach (NEPHMN) MANDEEP PURI ([id number]) 1975 F Date Time Provider Department 03/30/21 PERRI BARRETT During your visit today, we recorded the following information about you: Allergies As of Date: 03/30/2021 Noted Allergy Reaction ALLOPURINOL 08/02/2019 4 - Hives Date Reviewed: 03/30/2021 Reviewed by: Perri Barrett MD - Fully Assessed Visit Diagnosis:Screening for genitourinary condition [Z13.89] Order(s):URINALYSIS, DIPSTICK ONLY [SQUA] Order #: [id number]. #:[id number] Prescriptions as of 03/30/2021 Sig: DULOXETINE 60 [...] dis*03/30/2021 Encounter Status:Closed by MAXX BAZAN on 04/02/21[facility] 03-30-2021 NoteHNO ID: [id number] Author: Perri Barrett MD Service: ? Author Type: Physician Type: Progress Notes Filed: 03/30/2021 10:25 AM Note Text: Mrs. 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 [facility] general Narrative - Reported * Type Description Date Medical History HTN (hypertension) Medical History Anxiety Medical History polycystic kidneys Medical History COVID 05-17-2020 Surgical History C section Surgical History BREAST REDUCTION Hospitalization History child Hospitalization History KIDNEY INFECTION 07/2019 Hospitalization History COVID AND DEHYDRATION [employer] Other 08-12-2020 History general Narrative - Reported* Type Description Date Medical History HTN (hypertension) Medical History Anxiety Medical History polycystic kidneys Medical History COVID 05-17-2020 Medical History end stage renal disease Surgical History C section Surgical History BREAST REDUCTION Surgical History colonoscopy 04/01/2022 Surgical History wisdom teeth 03/24/2022 Hospitalization History child Hospitalization History KIDNEY INFECTION 07/2019 Hospitalization History COVID AND DEHYDRATION [employer] Other 08-12-2020 History general Narrative - Reported* [...] INFECTION 07/2019 Hospitalization History COVID AND DEHYDRATION [employer] Other 08-12-2020 History general Narrative - Reported* [...] INFECTION 07/2019 Hospitalization History COVID AND DEHYDRATION [facility] [employer] Other Evaluation noteNo assessment information available [facility] Work Phone: Evaluation noteNo InformationNortExcela [facility] [employer] Other Evaluation note* Diagnosis Onset Date Resolution Status Dysuria acute UTI (urinary tract infection) acute [facility] Work Phone: Evaluation note* Diagnosis Acute non-recurrent pansinusitis- Primary Side effect of medication documented in this encounter [facility]* Diagnosis Cyst of left ovary- Primary Other and unspecified ovarian cyst Dyspareunia in female [facility] Diagnosis Cyst of left ovary Other and unspecified ovarian cyst [facility]* Diagnosis Benign essential hypertension ([facility])- Primary Essential hypertension, benign Renal transplant recipient ([facility]) Immunosuppressive management encounter following kidney transplant ([facility]) Encounter for long-term (current) use of other medications Anemia of renal disease Anemia in chronic kidney disease Iron deficiency anemia, unspecified iron deficiency anemia type Type 2 diabetes mellitus with stage 3a chronic kidney disease, without long-term current use of insulin (HCC) ([facility]) Dyslipidemia ([facility]) Other and unspecified hyperlipidemia Fibromyalgia Unspecified myalgia and myositis Need for immunization against influenza Need for prophylactic vaccination and inoculation against influenza [facility] Diagnosis Polycystic kidney disease- Primary Congenital polycystic kidney, unspecified type Anemia of renal disease Anemia in chronic kidney disease Immunosuppressive management encounter following kidney transplant ([facility]) Encounter for long-term (current) use of other medications Renal transplant recipient ([facility]) Type 2 diabetes mellitus with stage 3a chronic kidney disease, without long-term current use of insulin (HCC) (CMS/HCC) Dyslipidemia (CMS/HCC) Other and unspecified hyperlipidemia documented in this encounter [facility] Assessments Diagnosis Acute sepsis (HCC)- Primary Acute cystitis without hematuria Acute cystitis Chronic renal failure, stage 4 (severe) (HCC) Polycystic kidney disease Polycystic kidney, unspecified type Advance Directives No Advanced Directives Records FoundDocuments on File Type Date Recorded Patient Rn Provider Relations Expl anation Advance Directives and Living Will Power of Technology Applications Teacher Advance Directive Response Recorded Date/ Time Advance [...] 02, 2024 8:39am z12.August 25, 2024 3:05pm Unknown October 14, 2024 [...] neg. Reason Comments 6 mos. follow up Reason Comments discuss changing Ozempic Patient would teresa avila to know if she is starting menopause? She has been getting facial hair, fatigue, and blurred vision. INFORMATION SOURCE (unrecogn ized section and content) DATE CREATED AUTHOR 08/04/2019 [facility] DATE CREATED AUTHOR AUTHOR'S ORGANIZ ATION 04/28/2020 [facility] DATE CREATED AUTHOR AUTHOR'S ORGANIZ ATION 09/12/2020 [facility] DATE CREATED AUTHOR AUTHOR'S ORGANIZ ATION 11/07/2021 [facility] DATE CREATED AUTHOR AUTHOR'S ORGANIZ ATION 02/27/2022 [facility] DATE CREATED AUTHOR AUTHOR'S ORGANIZ ATION 08/04/2022 [facility] DATE CREATED AUTHOR AUTHOR'S ORGANIZ ATION 10/19/2024 [facility] DATE CREATED AUTHOR AUTHOR'S ORGANIZ ATION 01/09/2025 [facility] EPIC DATE CREATED AUTHOR AUTHOR'S ORGANIZ ATION 02/12/2025 [facility] Care Teams (unrecognized sec [...] March 15, 2024 End: March 15, 2024 Lacquer Polisher Relationship Specialty Start Date End Date Ming Espinoza DO [address] [place] [address] PCP - [facility] [employer] 10/06/21 10/05/99 Ming Espinoza DO [address] [place] [address] PCP - General Internal Medicine 05/02/23 Lacquer Polisher Relationship Specialty Start Date End Date Ming Espinoza DO [address] [place] [address] PCP - [facility] [employer] 10/06/21 10/05/99 Ming Espinoza DO [address] [place] [address] PCP - General Internal Medicine 05/02/23 Lacquer Polisher Relationship Specialty Start Date End Date Ming Espinoza DO [address] [place] [address] PCP - [facility] [employer] 10/06/21 10/05/99 Ming Espinoza DO [address] [place] [address] PCP - General Internal Medicine 05/02/23 Lacquer Polisher Relationship Specialty Start Date End Date Ming Espinoza DO [address] [place] [address] PCP - [facility] [employer] 10/06/21 10/05/99 Ming Espinoza DO [address] [place] [address] PCP - General Internal Medicine 05/02/23 Team [...] August 25, 2024 End: August 25, 2024 Lacquer Polisher Relationship Specialty Start Date End Date Ming Espinoza DO [address] [place] [address] PCP - [facility] [employer] 10/06/21 10/05/99 Ming Espinoza DO [address] [place] [address] PCP - General Internal Medicine 05/02/23 Lacquer Polisher Relationship Specialty Start Date End Date Ming Espinoza DO [address] [place] [address] PCP - [facility] [employer] 10/06/21 10/05/99 Ming Espinoza DO [address] [place] [address] PCP - General Internal Medicine 05/02/23 Lacquer Polisher Relationship Specialty Start Date End Date Ming Espinoza DO [address] [place] [address] PCP - [facility] [employer] 10/06/21 10/05/99 Ming Espinoza DO [address] [place] [address] PCP - General Internal Medicine 05/02/23 Lacquer Polisher Relationship Specialty Start Date End Date Ming Espinoza DO [address] [place] [address] PCP - [facility] [employer] 10/06/21 10/05/99 Ming Espinoza DO [address] [place] [address] PCP - General Internal Medicine 05/02/23 Lacquer Polisher Relationship Specialty Start Date End Date Ming Espinoza DO [address] [place] [address] PCP - [facility] [employer] 10/06/21 10/05/99 Ming Espinoza DO [address] [place] [address] PCP - General Internal Medicine 05/02/23 Team Status: Inactive Member Role Status Dates Ming Espinoza DO Primary Care Provider Active Start: October 14, 2024 End: October 14, 2024 Sujit Monterroso MD Attending Provider Active S tart: October 14, 2024 End: October 14, 2024 Lacquer Polisher Relationship Specialty Start Date End Date Alexis Ming DO Kary [address] [place] [address] PCP - [facility] [employer] 10/06/21 10/05/99 Ming Espinoza DO [address] [place] [address] PCP - General Internal Medicine 05/02/23 Lacquer Polisher Relationship Specialty Start Date End Date Ming Espinoza DO [address] [place] [address] PCP - [facility] [employer] 10/06/21 10/05/99 Ming Espinoza DO [address] [place] [address] PCP - General Internal Medicine 05/02/23 Goals [...] BE BASED ON THE PRIMARY CLINICAL RECORDS. [facility]. provides no warranty or guarantee of the accuracy or completeness of information in this document.
[2025-03-03 07:31] LABS: Basophils Absolute Auto 0.1 10^3/uL (0.0-0.1); Basophils Percent Auto 0.8 % (0.2-2.0); Eosinophils Absolute Auto 0.3 10^3/uL (0.0-0.7); Eosinophils Percent Auto 4.3 % (0.9-7.0); Hematocrit 39.6 % (36.0-48.0); Hemoglobin 13.2 g/dL (12.0-16.0); Immature Granulocytes Abs Auto 0.03 10^3/uL (0.00-0.03); Immature Granulocytes Pct Auto 0.4 % (0.0-0.5); Lymphocytes Absolute Auto 1.5 10^3/uL (1.2-3.8); Lymphocytes Percent Auto 20.1 % (20.5-60.0); Mean Corpuscular HGB Conc 33.3 g/dL (29.9-35.2); Mean Corpuscular Hemoglobin 28.9 pg (26.7-34.0); Mean Corpuscular Volume 86.8 fL (81.0-99.0); Mean Platelet Volume 8.5 fL (9.5-13.5); Monocytes Absolute Auto 0.4 10^3/uL (0.3-0.8); Monocytes Percent Auto 5.4 % (1.7-12.0); Neutrophils Absolute Auto 5.2 10^3/uL (1.4-6.5); Platelet Count 319 10^3/uL (150-450); Red Blood Count 4.56 10^6/uL (4.20-5.40); Red Cell Distribution Width 14.6 % (11.0-15.0); White Blood Count 7.5 10^3/uL (4.0-11.0)
[2025-03-03 08:20] LABS: Alanine Aminotransferase 29 U/L (14-59); Albumin Level 3.7 g/dL (3.4-5.0); Alkaline Phosphatase 84 U/L (46-116); Anion Gap 13.5; Aspartate Amino Transferase 20 U/L (15-37); BUN Creatinine Ratio 12.4; Bilirubin Direct 0.1 mg/dL (0.0-0.2); Bilirubin Total 0.5 mg/dL (0.2-1.0); Calcium 9.6 mg/dL (8.5-10.1); Carbon Dioxide 27.9 mmol/L (21.0-32.0); Chloride 105 mmol/L (98-107); Chol HDL Ratio 3.4; Cholesterol 181 mg/dL (<=200); Estimated GFR (African America 57 (>=60 mL/min/1.73m^2); Estimated GFR (Non-African Ame 47 (>=60 mL/min/1.73m^2); Globulin 3.8 g/dL; Glucose 107 mg/dL (74-106); HDL Cholesterol 54 mg/dL (40-60); Magnesium 1.8 mg/dL (1.8-2.4); Phosphorus 3.5 mg/dL (2.6-4.7); Potassium 3.4 mmol/L (3.5-5.1); Sodium 143 mmol/L (136-145); Total Protein 7.5 g/dL (6.4-8.2); Triglycerides 167 mg/dL (<=150); Uric Acid 4.7 mg/dL (2.6-6.0); VLDL CHOLESTEROL 33.4 mg/dL
[2025-03-03 08:53] LABS: Estimated Average Glucose 111 mg/dL; Glycohemoglobin A1C 5.5 % (4.5-6.2)
[2025-03-05 11:08] LABS: BKV DNA, Quant PCR, Plasma Negative (Negative)
[2025-03-07 02:07] LABS: Tacrolimus (FK506), Blood 5.4 ng/mL (5.0-20.0)
== END 2025-03-03 07:03 | disposition home or self-care (01) ==
PROVIDERS: PCP Internal Medicine; Visit Provider Internal Medicine Nephrology
DX: E78.5 Hyperlipidemia, unspecified (principal); R73.01 Impaired fasting glucose; Z94.0 Kidney transplant status; R60.9 Edema, unspecified
CPT/HCPCS: 36415; 80053; 80061; 80197; 82248; 83036; 83735; 84100; 84550; 85025; 87799

== ENCOUNTER 2025-04-02 08:08 | Outpatient (OUT) | payer OTHER, SELFPAY ==
--- OUTSIDE RECORDS SUMMARY | 2025-04-02 08:12 | XMS_ITS | CCD ---
Author Organization [facility] Care Team Providers Care Mobile Service Rv Technician Name Role Phone Ming Espinoza Primary Care Provider VIDAL MADRIGAL Attending Unavailable MING ESPINOZA Primary Care Unavailable Toni, Yaneth Unavailable Shabbir Jones Unavailable Dipika Stinson Unavailable Jesus Parham Unavailable DO Ming Espinoza Primary Care Provider MD Shabbir Jones Attending Provider [phone] MD Yaneth Muñoz Attending Provider MD Jesus Parham Attending Provider Estefania Vo Unavailable DO Ming Espinoza Primary Care Provider [phone] EB Forman Emergency Provider DO Blake Hinojosa Attending Provider ANGELAC, DR ZARAGOZA Admitting Unavailable DR MING ESPINOZA Primary Care Unavailable MISC, DR ZARAGOZA Attending Unavailable MISC, DR ZARAGOZA Consulting Unavailable TNOI, YANETH Admitting Unavailable DR MING ESPINOZA Primary [...] Unavailable MISC, DR ZARAGOZA Consulting Unavailable TONIYANETH WYATT Admitting Unavailable ALEXIS, DR ACOSTA Primary Care Unavailable TONI, YANETH Attending Unavailable TONI, YANETH Consulting Unavailable DO Alexis Viper Primary Care Provider [phone] MD Perri Ceja Attending Provider CECILIA Edwards Attending Provider Ming Espinoza DO Unavailable Ming Espinoza DO Primary Care Provider [phone] DO Alexis Ming Primary Care Provider [phone] MD Jesus Ayala Attending Provider DO Blake Hinojosa Referring Provider [phone] Alexis NAVA Ming Primary Care Provider [phone] Jesus Ayala MD Attending Provider [phone] Blake Hinojosa DO Referring Provider [phone] Blake Hinojosa DO Attending Provider Sujit Bernal MD Attending Provider [phone] Perri Ceja Attending Unavailable Ming Espinoza Primary Care Unavailable Perri Ceja Admitting Unavailable Andreia Edwards Admitting Unavailable JerrySachaAndreia M Attending Unavailable Ming Espinoaz Primary Care Unavailable Jesus Ayala Admitting Unavailable Jesus Ayala Attending Unavailable Blake Hinojosa Referring Unavailable Ming Espinoza Primary Care Unavailable Sujit Bernal Admitting Unavailable Sujit Bernal Attending Unavailable Ming Espinoza Primary Care Unavailable Blake Hinojosa Admitting Unavailable Blake Hinojosa Attending Unavailable MING ESPINOZA Attending Unavailable MUNIRA PHAN Referring Unavailable BLAKE HINOJOSA Attending Unavailable BLAKE HINOJOSA Referring Unavailable MING ESPINOZA Referring Unavailable YRISLUCERO YEE Teresa Attending Unavailable BLAKE HINOJOSA Attending Unavailable BLAKE HINOJOSA Attending Unavailable MING ESPINOZA Attending Unavailable MING ESPINOZA Attending Unavailable SREE BLANCHARD Referring Unavailable MUNIRA PHAN Attending Unavailable LO, SREE Attending Unavailable SUJIT BERNAL Referring Unavailable LO, SREE Attending Unavailable SAVZYAN, LEO Attending Unavailable Allergies Allergy Classification Reported Allergen(s) Allergy Type Date of Onset Reaction(s) Facility (20 sources) Allopurinol; Translations: [ALLOPURINOL] Drug Allergy 9 hives, Rash [place], [place] (20 sources) venlafaxine; Translations: [venlafaxine] Drug Allergy 2 Rash, Rash, hives [facility] (20 sources) venlafaxine; Translations: [VENLAFAXINE HCL] Drug Allergy 1 [facility] (1 source) Allopurinol Drug Allergy 4 [facility] Repository Medications Current Medications Medication Drug [...] acid 7540 MG / polyethylene glycol 3350 72945 MG / potassium chloride 1200 MG / sodium ascorbate 06908 MG / sodium chloride 3200 MG Powder for Oral Solution) / 1 (polyethylene glycol 3350 024985 MG / potassium chloride 1000 MG / sodium chloride 2000 MG / sodium sulfate 9000 MG Powder for Oral Solution) } Pack [Plenvu] (1 source) Osmotic Laxative, Vitamin C Start: 02-26-2022 Plenvu 140 GM dose 1 pouch at 4pm, dose 2 pouch A & B at 11pm Orally twice a day for 1 days BIN:[id number] PCN: [id number] GROUP:[id number] ID:[id number] February, Active cephalexin 500 mg oral capsule [...] Start: 03-15-2024 take 2 tablets by mo [facility] in the morning magnesium oxide (Mag-Ox) 400 (240 Mg) MG tablet TAKE 2 TABLETS BY MOUTH IN THE MORNING AND 2 TABLETS AT BEDTIME 06/22/2024 Active methenamine hippurate 1000 mg oral tablet (15 sources) take 1 tablet by mouth twice [...] complication, without long-term current use of insulin ([facility]) Inject 1 mg under the skin 1 (one) time per week 3 mL 03/23/2024 Active semaglutide (Ozempic, 1 MG/DOSE,) 4 MG/3ML solution pen-injector (19 sources) Start: 11-01-2024 inject 1 mg by [...] complication, without long-term current use of insulin ([facility]) INJECT 1 MG UNDER THE SKIN 1 (ONE) TIME PER WEEK 9 mL 3 11/01/2024 Active Start: 06-29-2024 inject 1 mg by subcu taneous injection every week semaglutide (Ozempic, 1 MG/DOSE,) 4 MG/3ML solution pen-injector Indications: Type 2 diabetes mellitus with other specified complication, without long-term current use of insulin ([facility]) INJECT 1 MG UNDER THE SKIN 1 (ONE) TIME PER WEEK 3 mL 3 06/29/2024 Active Semaglutide, 2 MG/DOSE, (Ozempic, 2 MG/DOSE,) 8 MG/3ML solution pen-injector (2 sources) Start: 01-03-2025 inject 2 mg by subcutaneous injection every week Semaglutide, 2 MG/DOSE, (Ozempic, 2 MG/DOSE,) 8 MG/3ML solution pen-injector Indications: Type 2 diabetes mellitus with stage 3a chronic kidney disease, without long-term current use of insulin (HCC) ([facility]) Inject 2 mg under the skin 1 [...] 2024 11:00pm tiZANidine 4 mg oral tablet (16 sources) Central alpha-2 Adrenergic Agonist Start: 08-31-2024 [...] mg Start: 08-02-2019 take 2 tablets by [facility] once daily as needed for pain Acetaminophen (Tylenol Extra Strength) 500 mg Tablet Active 1000 MG PO Daily as needed for Muscle Pain August 01, 2019 11:00pm calcitriol 0.26572 mg oral capsule (9 sources) Vitamin D3 [...] Ergocalciferol (Vitamin D2) 50,000 unit capsule Discontinued 88520 UNIT PO every month January 19, 2019 [...] Translations: [Chronic renal failure, stage 4 (severe) ([facility])] Chronic Acute and unspecified renal failure (9 [...] aftercare (20 sources) Transplant follow-up; Translations: [Other detention (current) drug therapy] Onset: 10-23-2022 06-10-2023 Episodic [...] 0.1 N [facility] Basophils/100 WBC (Bld) 0.8 % 0.2 - 2.0 % [facility] Eosinophils/100 WBC (Bld) 4.3 % 0.9 - 7.0 % [facility] Erythrocyte distribution width (RBC) [Ratio] 14.6 % 11.0 - 15.0 % [facility] Hematocrit (Bld) [Volume fraction] 39.6 % 36.0 - 48.0 % [facility] Hemoglobin (Bld) [Mass/Vol] 13.2 g/dL 12.0 - 16.0 g/dL [facility] IMMATURE GRANULOCYTES ABS AUTO 0.03 [facility] Immature granulocytes/100 WBC (Bld) 0.4 % 0.0 - 0.5 % [facility] Interpretation and review of laboratory results Abnormal [facility] LYMPHOCYTES ABSOLUTE AUTO 1.5 [facility] Lymphocytes/100 WBC (Bld) 20.1 % Low 20.5 - 60.0 % [facility] MCH (RBC) [Entitic mass] 28.9 pg 26.7 - 34.0 pg [facility] MCHC (RBC) [Mass/Vol] 33.3 g/dL 29.9 - 35.2 g/dL [facility] MCV (RBC) [Entitic vol] 86.8 fL 81.0 - 99.0 fL [facility] MONOCYTES ABSOLUTE AUTO 0.4 [facility] Monocytes/100 WBC (Bld) 5.4 % 1.7 - 12.0 % [facility] NEUTROPHILS ABSOLUTE AUTO 5.2 [facility] Neutrophils/100 WBC (Bld) 69 % 43.0 - 75.0 % [facility] Platelet mean volume (Bld) [Entitic vol] 8.5 fL Low 9.5 - 13.5 fL [facility] TBH EO # 0.3 [facility] TBH PLT 319 [facility] TB RBC 4.56 [facility] TBH WBC 7.5 [facility] Orders Onlyon 02-02-2025 Orders Only [id number] Antonio Puri i 1975 F Date Provider Department Center 02/02/2025 [id number] LOMAX None Family History Problem Relation Age of Onset Fibromyalgia Mother Heart disease Father Hypertension Sister Polycystic kidney disease Sister Hypertension Brother Polycystic kidney disease Brother Family Status - Relation Status Age at Mother Alive Father Sister Brother [facility] 36on 01-31-2025 36 Patient called into [...] to be sent over upon your approval. [facility] Refillon 01-31-2025 Refill [id number] Antonio Puri i 1975 F Date Provider Department Center 01/31/2025 ANDERSON GOODWIN None Family History Problem Relation Age of Onset Fibromyalgia Mother Heart disease Father Hypertension Sister Polycystic kidney disease Sister Hypertension Brother Polycystic kidney disease Brother Family Status - Relation Status Age at Mother Alive Father Sister Brother Reason for Visit and Comments: Med Refill [[id number]] Med Management [[id number]] [facility] ALL CBC WITH AUTO DIFFon BASOPHILS ABSOLUTE AUTO 0.1 N [facility] Basophils/100 WBC (Bld) 0.7 % 0.2 - 2.0 % [facility] Eosinophils/100 WBC (Bld) 2.7 % 0.9 - 7.0 % [facility] Erythrocyte distribution width (RBC) [Ratio] 14.5 % 11.0 - 15.0 % [facility] Hematocrit (Bld) [Volume fraction] 41.9 % 36.0 - 48.0 % [facility] Hemoglobin (Bld) [Mass/Vol] 13.9 g/dL 12.0 - 16.0 g/dL [facility] IMMATURE GRANULOCYTES ABS AUTO 0.03 [facility] Immature granulocytes/100 WBC (Bld) 0.4 % 0.0 - 0.5 % [facility] Interpretation and review of laboratory results Abnormal [facility] LYMPHOCYTES ABSOLUTE AUTO 1.6 [facility] Lymphocytes/100 WBC (Bld) 19.1 % Low 20.5 - 60.0 % [facility] MCH (RBC) [Entitic mass] 28.7 pg 26.7 - 34.0 pg [facility] MCHC (RBC) [Mass/Vol] 33.2 g/dL 29.9 - 35.2 g/dL [facility] MCV (RBC) [Entitic vol] 86.4 fL 81.0 - 99.0 fL [facility] MONOCYTES ABSOLUTE AUTO 0.6 N [facility] Monocytes/100 WBC (Bld) 6.4 % 1.7 - 12.0 % [facility] NEUTROPHILS ABSOLUTE AUTO 6 [facility] Neutrophils/100 WBC (Bld) 70.7 % 43.0 - 75.0 % [facility] Platelet mean volume (Bld) [Entitic vol] 8.6 fL Low 9.5 - 13.5 fL [facility] TBH EO # 0.2 [facility] TB PLT 289 [facility] TB RBC 4.85 [facility] TB WBC 8.5 [facility] Documentationon 12-14-2024 Documentation [id number] Antonio Puri i 1975 F Date Provider Department Center 12/14/2024 ANDERSON GOODWIN None Family History Problem Relation Age of Onset Fibromyalgia Mother Heart disease Father Hypertension Sister Polycystic kidney disease Sister Hypertension Brother Polycystic kidney disease Brother Family Status - Relation Status Age at Mother Alive Father Sister Brother Reason for Visit and Comments: Results [95] Normal [facility] ALL CBC WITH AUTO DIFFon BASOPHILS ABSOLUTE AUTO 0 N [facility] Basophils/100 WBC (Bld) 0.6 % 0.2 - 2.0 % [facility] Eosinophils/100 WBC (Bld) 5 % 0.9 - 7.0 % [facility] Erythrocyte distribution width (RBC) [Ratio] 15.1 % High 11.0 - 15.0 % [facility] Hematocrit (Bld) [Volume fraction] 38.9 % 36.0 - 48.0 % [facility] Hemoglobin (Bld) [Mass/Vol] 12.5 g/dL 12.0 - 16.0 g/dL [facility] IMMATURE GRANULOCYTES ABS AUTO 0.04 High [facility] Immature granulocytes/100 WBC (Bld) 0.6 % High 0.0 - 0.5 % [facility] Interpretation and review of laboratory results Abnormal [facility] LYMPHOCYTES ABSOLUTE AUTO 1.1 Low [facility] Lymphocytes/100 WBC (Bld) 17.6 % Low 20.5 - 60.0 % [facility] MCH (RBC) [Entitic mass] 27.8 pg 26.7 - 34.0 pg [facility] MCHC (RBC) [Mass/Vol] 32.1 g/dL 29.9 - 35.2 g/dL [facility] MCV (RBC) [Entitic vol] 86.6 fL 81.0 - 99.0 fL [facility] MONOCYTES ABSOLUTE AUTO 0.4 N [facility] Monocytes/100 WBC (Bld) 5.4 % 1.7 - 12.0 % [facility] NEUTROPHILS ABSOLUTE AUTO 4.6 [facility] Neutrophils/100 WBC (Bld) 70.8 % 43.0 - 75.0 % [facility] Platelet mean volume (Bld) [Entitic vol] 8.7 fL Low 9.5 - 13.5 fL [facility] TBH EO # 0.3 [facility] TBH PLT 283 [facility] TB RBC 4.49 [facility] TBH WBC 6.4 [facility] Refillon 11-25-2024 Refill [id number] Antonio Puri i 1975 F Date Provider Department Center 11/25/2024 [id number] TORRES TXP None Family History Problem Relation Age of Onset Fibromyalgia Mother Heart disease Father Hypertension Sister Polycystic kidney disease Sister Hypertension Brother Polycystic kidney disease Brother Family Status - Relation Status Age at Mother Alive Father Sister Brother [facility] Follow-Upon 11-12-2024 Follow-Up [id number] Antonio Puri i 1975 F Date Provider Department Center 11/12/[id number] BATRES TXP None Family History Problem Relation Age of Onset Fibromyalgia Mother Heart disease Father Hypertension Sister Polycystic kidney disease Sister Hypertension Brother Polycystic kidney disease Brother Family Status - Relation Status Age at Mother Alive Father Sister Brother Level of Service:83544 MS OFFICE/OUTPATIENT ESTABLISHED MOD MDM 30 MIN Reason for Visit and Comments: Kidney Follow-up [] - Pt has reoccurring uti's x7 months. She is going to ID to be checked. She would like a standing lab order for a ua. [facility] Orders Onlyon 10-21-2024 Orders Only [id number] Antonio Puri i 1975 F Date Provider Department Center 10/21/2024 1971-LU STEPHENS TXP None Family History Problem Relation Age of Onset Fibromyalgia Mother Heart disease Father Hypertension Sister Polycystic kidney disease Sister Hypertension Brother Polycystic kidney disease Brother Family Status - Relation Status Age at Mother Father Sister Brother [facility] ALL URINALYSISon 10-14-2024 BILIRUBIN URINE Negative NEGATIVE [facility] BLOOD URINE TRACE-I NEGATIVE [facility] Clarity (U) CLEAR CLEAR [facility] Color (U) LT. YELLOW YELLOW [facility] GLUCOSE URINE UA Negative NEGATIVE mg/dL [facility] Interpretation and review of laboratory results Abnormal [facility] Ketones Ql (U) Negative NEGATIVE mg/dL [facility] Leukocyte esterase Test strip Ql (U) LARGE Abnormal NEGATIVE [facility] NITRITE URINE Positive Abnormal NEGATIVE [facility] pH (U) 7.5 [pH] 5.0 - 9.0 [facility] PROTEIN URINE Negative NEG/TRACE mg/dL [facility] SPECIFIC GRAVITY URINE 1.015 1.005 - 1.025 [facility] UROBILINOGEN URINE 0.2 EU/dL 0.2 - 1.0 EU/dL [facility] Urine Cultureon 10-14-2024 Bacteria identified Cx Nom (U) ORGANISM: Escherichia coli (MDRO) (O:ESCCOLMDRO) [place] Count >100,000 Aerobic CODI Charge (NMIC56) - [...] RESISTANT TO ALL B-LACTAM DRUGS. PERFORMED BY: [place] [id number] [address] [place] [id number] PATHOLOGIST SERVICE TECH/WELDER DOM [place] [facility] Comment on above: Performed By: #### C UU #### [facility] [address] [id number] [facility] [[email or web address] ALL MAGNESIUMon 10-02-2024 Magnesium [Mass/Vol] 1.8 mg/dL 1.8 - 2 .4 mg/dL [facility] ALL PHOSPHOROUSon 10-02-2024 Phosphate [Mass/Vol] 3.9 mg/dL 2.6 - 4 .7 mg/dL [facility] ALL URIC ACIDon 10-02-2024 Urate [Mass/Vol] 4.2 mg/dL 2.6 - 6.0 mg/dL [facility] CCF CMP (CMP) (FOR REMOTE FH C USE)on 10-02-2024 Albumin [Mass/Vol] 3.3 g/dL Low 3.4 - 5.0 g/dL [facility] ALBUMIN GLOBULIN RATIO 0.8 NO [facility] ALP [Catalytic activity/Vol] 84 U/L 46 - 116 U/L [facility] ALT [Catalytic activity/Vol] 13 U/L Low 14 - 59 U/L [facility] Anion gap [Moles/Vol] 14.6 mmol/L NO [facility] AST [Catalytic activity/Vol] 11 U/L Low 15 - 37 U/L [facility] Bilirubin [Mass/Vol] 0.3 mg/dL 0.2 - 1 .0 mg/dL [facility] Calcium [Mass/Vol] 9.3 mg/dL 8.5 - 10. 1 mg/dL [facility] Chloride [Moles/Vol] 105 mmol/L 98 - 10 7 mmol/L [facility] CO2 [Moles/Vol] 25 mmol/L 21.0 - 32.0 mmol/L [facility] Creatinine [Mass/Vol] 1.37 mg/dL High 0.55 - 1.02 mg/dL [facility] GFR/1.73 sq M.predicted CKD-EPI (S/P/Bld) [Vol rate/Area] 50 Low >=60 mL/min/1.73m 2 [facility] Globulin (S) [Mass/Vol] 4.2 g/dL N [facility] Glucose [Mass/Vol] 102 mg/dL 74 - 106 mg/dL [facility] Interpretation and review of laboratory results Abnormal [facility] Potassium [Moles/Vol] 3.6 mmol/L 3.5 - 5.1 mmol/L [facility] Protein [Mass/Vol] 7.5 g/dL 6.4 - 8.2 g/dL [facility] Sodium [Moles/Vol] 141 mmol/L 136 - 145 mmol/L [facility] TBH EGFR-NON AF TURKISH 41 Low >=60 mL/min/1.73m 2 [facility] Urea nitrogen [Mass/Vol] 17 mg/dL 7.0 - 18.0 mg/dL [facility] Urea nitrogen/Creatinine [Mass ratio] 12.4 mg/mg [facility] METRO BILIRUBIN, DIRECTon Bilirubin.indirect [Mass/Vol] 0.1 mg/dL 0.0 - 0.2 mg/dL [facility] No Panel Informationon 10-02 [facility] ALL CBC WITH AUTO DIFFon BASOPHILS ABSOLUTE AUTO 0 N [facility] Basophils/100 WBC (Bld) 0.3 % 0.2 - 2.0 % [facility] Eosinophils/100 WBC (Bld) 2.8 % 0.9 - 7.0 % [facility] Erythrocyte distribution width (RBC) [Ratio] 14.5 % 11.0 - 15.0 % [facility] Hematocrit (Bld) [Volume fraction] 34.4 % Low 36.0 - 48.0 % [facility] Hemoglobin (Bld) [Mass/Vol] 10.9 g/dL Low 12.0 - 16.0 g/dL [facility] IMMATURE GRANULOCYTES ABS AUTO 0.03 [facility] Immature granulocytes/100 WBC (Bld) 0.4 % 0.0 - 0.5 % [facility] Interpretation and review of laboratory results Abnormal [facility] LYMPHOCYTES ABSOLUTE AUTO 1.2 [facility] Lymphocytes/100 WBC (Bld) 15.4 % Low 20.5 - 60.0 % [facility] MCH (RBC) [Entitic mass] 27.5 pg 26.7 - 34.0 pg [facility] MCHC (RBC) [Mass/Vol] 31.7 g/dL 29.9 - 35.2 g/dL [facility] MCV (RBC) [Entitic vol] 86.9 fL 81.0 - 99.0 fL [facility] MONOCYTES ABSOLUTE AUTO 0.5 N [facility] Monocytes/100 WBC (Bld) 6.2 % 1.7 - 12.0 % [facility] NEUTROPHILS ABSOLUTE AUTO 5.7 [facility] Neutrophils/100 WBC (Bld) 74.9 % 43.0 - 75.0 % [facility] Platelet mean volume (Bld) [Entitic vol] 8.5 fL Low 9.5 - 13.5 fL [facility] TBH EO # 0.2 [facility] TBH PLT 337 [facility] RBC 3.96 Low [facility] TBH WBC 7.6 [facility] ALL LIPID PROFILE (FASTING)o n 08-31-2024 CHOL HDL RATIO 3.6 [facility] Comment on above: 3.3 - 4.4 LOW RISK 4.4 - 7.1 AVERAGE RISK 7.1 - 11.0 MODERATE RISK >11.0 HIGH RISK Cholesterol [Mass/Vol] 175 mg/dL NINF - 200 mg/dL [facility] Cholesterol in HDL [Mass/Vol] 49 mg/dL 40 - 60 mg/dL [facility] Comment on above: > or =60 mg/dl - LOW CARDIOVASCULAR RISK <40 mg/dl - HIGH CARDIOVASCULAR RISK Magnesium [Mass/Vol] 99.6 mg/dL [facility] Comment on above: <100 mg/dl OPTIMAL 100-129 mg/dl NEAR OR ABOVE OPTIMAL 130-159 mg/dl BORDERLINE HIGH 160-189 mg/dl HIGH >190 mg/dl VERY HIGH Magnesium [Mass/Vol] 26.4 mg/dL [facility] Triglyceride [Mass/Vol] 132 mg/dL NINF - 150 mg/dL [facility] ALL MAGNESIUMon 08-31-2024 Magnesium [Mass/Vol] 1.9 mg/dL 1.8 - 2 .4 mg/dL [facility] ALL PHOSPHOROUSon 08-31-2024 Phosphate [Mass/Vol] 3.7 mg/dL 2.6 - 4 .7 mg/dL [facility] ALL URIC ACIDon 08-31-2024 Urate [Mass/Vol] 4 mg/dL 2.6 - 6.0 mg/dL [facility] CCF CMP (CMP) (FOR REMOTE FH C USE)on 08-31-2024 Albumin [Mass/Vol] 3.4 g/dL 3.4 - 5.0 g/dL [facility] ALBUMIN GLOBULIN RATIO 0.8 NO [facility] ALP [Catalytic activity/Vol] 86 U/L 46 - 116 U/L [facility] ALT [Catalytic activity/Vol] 19 U/L 14 - 59 U/L [facility] Anion gap [Moles/Vol] 17.2 mmol/L NO [facility] AST [Catalytic activity/Vol] 11 U/L Low 15 - 37 U/L [facility] Bilirubin [Mass/Vol] 0.4 mg/dL 0.2 - 1 .0 mg/dL [facility] Calcium [Mass/Vol] 9.3 mg/dL 8.5 - 10. 1 mg/dL [facility] Chloride [Moles/Vol] 104 mmol/L 98 - 10 7 mmol/L [facility] CO2 [Moles/Vol] 24.6 mmol/L 21.0 - 32.0 mmol/L [facility] Creatinine [Mass/Vol] 1.34 mg/dL High 0.55 - 1.02 mg/dL [facility] GFR/1.73 sq M.predicted CKD-EPI (S/P/Bld) [Vol rate/Area] 51 Low >=60 mL/min/1.73m 2 [facility] Globulin (S) [Mass/Vol] 4.2 g/dL N [facility] Glucose [Mass/Vol] 98 mg/dL 74 - 106 mg/dL [facility] Interpretation and review of laboratory results Abnormal [facility] Potassium [Moles/Vol] 3.8 mmol/L 3.5 - 5.1 mmol/L [facility] Protein [Mass/Vol] 7.6 g/dL 6.4 - 8.2 g/dL [facility] Sodium [Moles/Vol] 142 mmol/L 136 - 145 mmol/L [facility] TBH EGFR-NON AF TURKISH 42 Low >=60 mL/min/1.73m 2 [facility] Urea nitrogen [Mass/Vol] 16 mg/dL 7.0 - 18.0 mg/dL [facility] Urea nitrogen/Creatinine [Mass ratio] 11.9 mg/mg [facility] [employer] BILIRUBIN, DIRECTon Bilirubin.indirect [Mass/Vol] 0.1 mg/dL 0.0 - 0.2 mg/dL [facility] MLR HEMOGLOBIN A1Con 024 Glucose [Mass/Vol] 103 mg/dL [facility] HbA1c (Bld) [Mass fraction] 5.2 % 4.5 - 6.2 % [facility] Comment on above: ADA RECOMMENDED LIMI T 4.0 - 6.0 ADA THERAPEUTIC TARGET < 7.0 ACTION SUGGESTED > 7.0 [facility] [place] No Panel Informationon 08-31 [facility] MM screening mammo BI w/CADo n 08-25-2024 MM screening mammo BI w/CAD [facility] [address] Mammography Report Signed Patient: Mandeep Puri MR#: [id number] 15 : 1975 Acct:[id number] Age/Sex: 48 / F ADM Date: 08/25/24 [facility] Attending Dr: Blake Hinojosa DO Copies to: [...] Messina Jr., D.O.08/25/2024 3:24 PM Dictation Location: [facility] Transcribed By: [facility] 08/25/24 152 Dictated By: Evan Messina Jr, DO 08/25/24 1523 Signed By: 08/25/24 152 Normal [facility] Mammography reportOrdered By : Evan Messina on 08-25-2024 Diagnostic imaging study [facility] Main [place] [address] [place], [place] [id number] Mammography Report Signed Patient: Mandeep Puri MR#: [id number] : 1975 Acct:[id number] Age/Sex: 48 / F ADM Date: 4 [facility]: [facility] Room: Type: [facility] Attending Dr: Blake Hinojosa DO Copies to: [...] Messina Jr., D.O.08/25/2024 3:24 PM Dictation Location: [facility] Transcribed By: SALMA 08/25/241523 Dictated By: Evan Messina Jr, DO 08/25/24 1523 Signed By: 08/25/[address] [facility] [place] 125on 08-03-2024 CANCER ANTIGEN 125 12.9 0.0 - 38.1 [facility] Comment on above: [facility] El ectrochemiluminescence Immunoassay (ECLIA) Values obtained with different assay methods or kits cannot be used interchangeably. Results cannot be interpreted as absolute evidence of the presence or absence of malignant disease. Performed at: [address] [id number] Vocational Case Manager: Gabriel Whitman PhD, Phone: [phone] [facility] 24 hour urine albumin/total protein ratio by electrophoresisOrdered By: Jesus Ayala on 08-02-2024 Albumin Elph (24H U) [Mass fraction] Albumin/Protein.total in 24 hour Urine by Electrophoresis . [facility] 24 hour urine gamma globulin /total protein ratio by electrophoresisOrdered By: Jesus Ayala on 08-02-2024 Gamma globulin Elph (24H U) [Mass fraction] Gamma globulin/Protein.total in 24 hour Urine by Electrophoresis . [facility] 24 hour urine protein monocl onal/total protein by electrophoresisOrdered By: Jesus Ayala on 08-02-2024 Protein.monoclonal Elph (24H U) [Mass fraction] Protein.monoclonal/Prote in.total in 24 hour Urine by Electrophoresis Not Observed [facility] Alanine aminotransferase [En zymatic activity/volume] in Serum or PlasmaOrdered By: Jesus Ayala on 08-02-2024 ALT [Catalytic activity/Vol] 11 U/L Normal [facility] Comment on above: Performed By: #### U PE RAND, CAMILLA,URINE, ALDOLASE, SPE, CAMILLA SERUM #### [facility] , #### ADDONUAPLUS, T4F, ESR, CMP, CK, CBC, CRP, TSH3 #### [address] ALT [Catalytic activity/Vol] Alanine aminotransferase [Enzymatic activity/volume] in Serum or Plasma [facility] Albumin [Mass/volume] in Ser um or Plasma by Bromocresol green (BCG) dye binding methoOrdered By: Jesus Ayala on 08-02-2024 Albumin BCG dye [Mass/Vol] 4.3 g/dL 3.5-5.7 [facility] Albumin BCG dye [Mass/Vol] Albumin [Mass/volume] in Serum or Plasma by Bromocresol green (BCG) dye binding metho 3.5-5.7 [facility] Aldolaseon 08-02-2024 Aldolase 3.5 U/L Normal 3.3-10.3 [facility] Comment on above: Result Comment: Perf ormed at: - [facility] [address] [id number] Vocational Case Manager: Gabriel Whitman PhD, Phone: [phone] PERFORMED BY: [place] [address] PATHOLOGIST SERVICE TECH/WELDER ANAHY MCKEE M.D. Performed By: #### U PE RAND, CAMILLA,URINE, ALDOLASE, SPE, CAMILLA SERUM ####[facility] ,#### ADDONUAPLUS, T4F, ESR, CMP, CK, CBC, CRP, TSH3 ####[facility] Alkaline phosphatase [Enzyma tic activity/volume] in Serum or PlasmaOrdered By: Jesus Jamie on 08-02-2024 ALP [Catalytic activity/Vol] 87 U/L Normal 34-104 [facility] Comment on above: Performed By: #### U PE RAND, CAMILLA,URINE, ALDOLASE, SPE, CAMILLA SERUM #### [facility] , #### ADDONUAPLUS, T4F, ESR, CMP, CK, CBC, CRP, TSH3 #### [address] ALP [Catalytic activity/Vol] Alkaline phosphatase [Enzymatic activity/volume] in Serum or Plasma 34-104 [facility] Appearance of UrineOrdered B y: Jesus Jamie on 08-02-2024 Appearance (U) Urine appearance Clear [facility] Aspartate aminotransferase [ Enzymatic activity/volume] in Serum or PlasmaOrdered By: Jesus Jamie on 08-02-2024 AST [Catalytic activity/Vol] 13 U/L Normal 13-39 [facility] Comment on above: Performed By: #### U PE RAND, CAMILLA,URINE, ALDOLASE, SPE, CAMILLA SERUM #### [facility] , #### ADDONUAPLUS, T4F, ESR, CMP, CK, CBC, CRP, TSH3 #### [facility] [address] AST [Catalytic activity/Vol] Aspartate aminotransferase [Enzymatic activity/volume] in Serum or Plasma 13-39 [facility] Automated basophil %Ordered By: Jesus Ayala on 08-02-2024 Basophils/100 WBC (Bld) 0.6 % Normal . [facility] Comment on above: Performed By: #### U PE RAND, CAMILLA,URINE, ALDOLASE, SPE, CAMILLA SERUM ####[facility] ,#### ADDONUAPLUS, T4F, ESR, CMP, CK, CBC, CRP, TSH3 ####[address] Automated basophil countOrde red By: Jesus Ayala on 08-02-2024 Basophils (Bld) [#/Vol] 0.0 10*3/uL Normal 0.0-0.2 [facility] Comment on above: Performed By: #### U PE RAND, CAMILLA,URINE, ALDOLASE, SPE, CAMILLA SERUM ####[facility] ,#### ADDONUAPLUS, T4F, ESR, CMP, CK, CBC, CRP, TSH3 ####[address] Automated blood monocyte cou ntOrdered By: Jesus Ayala on 08-02-2024 Monocytes (Bld) [#/Vol] 0.4 10*3/uL Normal 0.0-0.8 [facility] Comment on above: Performed By: #### U PE RAND, CAMILLA,URINE, ALDOLASE, SPE, CAMILLA SERUM ####[facility] ,#### ADDONUAPLUS, T4F, ESR, CMP, CK, CBC, CRP, TSH3 ####[address] Automated eosinophil %Ordere d By: Jesus Ayala on 08-02-2024 Eosinophils/100 WBC (Bld) 3.0 % Normal . [facility] Comment on above: Performed By: #### U PE RAND, CAMILLA,URINE, ALDOLASE, SPE, CAMILLA SERUM ####[facility] ,#### ADDONUAPLUS, T4F, ESR, CMP, CK, CBC, CRP, TSH3 ####[place] [address] [address] Automated eosinophil countOr dered By: Jesus Ayala on 08-02-2024 Eosinophils (Bld) [#/Vol] 0.2 10*3/uL Normal 0.0-0.45 [facility] Comment on above: Performed By: #### U PE RAND, CAMILLA,URINE, ALDOLASE, SPE, CAMILLA SERUM ####[facility] ,#### ADDONUAPLUS, T4F, ESR, CMP, CK, CBC, CRP, TSH3 ####[place] [address] [address] Automated epithelial cells c ount in urine sediment (number/area)Ordered By: Jesus Gruberrow on 08-02-2024 Epithelial cells Auto (Urine sed) [#/Area] 5-9 [HPF] High 0-2 [facility] Epithelial cells Auto (Urine sed) [#/Area] Automated epithelial cells count in urine sediment (number/area) High 0-2 [facility] Automated erythrocytes count in urine sediment (number/area)Ordered By: Jesus Jamie on 08-02-2024 RBC Auto (Urine sed) [#/Area] Erythrocytes [#/area] in Urine sediment by Automated count 0-4 [facility] Automated leukocytes count i n urine sediment (number/area)Ordered By: Jesus Jamie on 08-02-2024 WBC Auto (Urine sed) [#/Area] Leukocytes [#/area] in Urine sediment by Automated count 0-4 [facility] Automated monocyte %Ordered By: Jesus Gruberrow on 08-02-2024 Monocytes/100 WBC (Bld) 4.5 % Normal . [facility] Comment on above: Performed By: #### U PE RAND, CAMILLA,URINE, ALDOLASE, SPE, CAMILLA SERUM ####[facility] ,#### ADDONUAPLUS, T4F, ESR, CMP, CK, CBC, CRP, TSH3 ####[facility] Wpd[address] Automated neutrophil %Ordere d By: Jesus Ayala on 08-02-2024 Neutrophils/100 WBC (Bld) 76.9 % Normal . [facility] Comment on above: Performed By: #### U PE RAND, CAMILLA,URINE, ALDOLASE, SPE, CAMILLA SERUM ####[facility] ,#### ADDONUAPLUS, T4F, ESR, CMP, CK, CBC, CRP, TSH3 ####[place] [address] [address] Bacteria [Presence] in Urine by AutomatedOrdered By: Jesus Ayala on 08-02-2024 Bacteria Auto Ql (U) None seen [HPF] None Seen [facility] Basophils Auto (Bld) [#/Vol] Ordered By: Jesus Ayala on 08-02-2024 Basophils (Bld) [#/Vol] Automated basophil count 0.0-0.2 [facility] Basophils/100 WBC Auto (Bld) Ordered By: Jesus Ayala on 08-02-2024 Basophils/100 WBC (Bld) Automated basophil % . [facility] Bilirubin Test strip Ql (U)O rdered By: Jesus Ayala on 08-02-2024 Bilirubin Ql (U) Negative Negative [facility] Bilirubin Ql (U) Bilirubin.total [Presence] in Urine by Test strip Negative [facility] Bilirubin.total [Mass/volume ] in Serum or PlasmaOrdered By: Jesus Ayala on 08-02-2024 Bilirubin [Mass/Vol] 0.3 mg/dL Normal 0.3-1.0 [facility] Comment on above: Performed By: #### U PE RAND, CAMILLA,URINE, ALDOLASE, SPE, CAMILLA SERUM #### [facility] , #### ADDONUAPLUS, T4F, ESR, CMP, CK, CBC, CRP, TSH3 #### [facility] [address] Bilirubin [Mass/Vol] Bilirubin.total [Mass/volume] in Serum or Plasma 0.3-1.0 [facility] C reactive protein [Mass/vol ume] in Serum or PlasmaOrdered By: Jesus Jamie on 08-02-2024 CRP [Mass/Vol] 1.7 mg/dL High 0.0-0.5 [facility] CRP [Mass/Vol] C reactive protein [Mass/volume] in Serum or Plasma High 0.0-0.5 [facility] C-Reactive Proteinon 024 C-Reactive Protein 1.7 mg/dL High 0.0-0.5 [facility] Comment on above: Performed By: #### U PE RAND, CAMILLA,URINE, ALDOLASE, SPE, CAMILLA SERUM #### [facility] , #### ADDONUAPLUS, T4F, ESR, CMP, CK, CBC, CRP, TSH3 #### [facility] [address] [place] [id number] [facility] [[email or web address]] CARCINOEMBRYONIC ANTIGENon 1 [facility] CEA ser/plasOrdered By: Gustavo Hinojosa on 08-02-2024 Carcinoembryonic Ag [Mass/Vol] Serum or plasma carcinoembryonic antigen measurement (mass/volume) 0.0-3.0 [facility] Comment on above: Serial tumor marker results determined by assays using different manufacturers or methods may not be comparable.[facility] cigarette machines mechanic and method:RUSSELL UNICEL DXI, 2 SITE IMMUNOENZYMATIC SANDWICH ASSAY. Calcium [Mass/volume] in Ser um or PlasmaOrdered By: Jesushelio Ayala on 08-02-2024 Calcium [Mass/Vol] 9.8 mg/dL Normal 8.6-10.3 [facility] Comment on above: Performed By: #### U PE RAND, CAMILLA,URINE, ALDOLASE, SPE, CAMILLA SERUM #### [facility] , #### ADDONUAPLUS, T4F, ESR, CMP, CK, CBC, CRP, TSH3 #### [facility] [address] Calcium [Mass/Vol] Calcium [Mass/volume ] in Serum or Plasma 8.6-10.3 [facility] Cancer Antigen 125on 2 024 Cancer Antigen 125 12.9 Normal 0.0-38.1 [facility] Comment on above: Result Comment: [facility] Electrochemiluminescence Immunoassay (ECLIA) Values obtained with different assay methods or kits cannot be used interchangeably. Results cannot be interpreted as absolute evidence of the presence or absence of malignant disease. Performed at: - [facility] [id number] Vocational Case Manager: Gabriel Whitman PhD, Phone: [phone] PERFORMED BY: [place] [address] PATHOLOGIST SERVICE TECH/WELDER ANAHY MCKEE M.D. Performed By: #### C A125 ####[facility] ,#### CEA ####[facility] [id number] Carbon dioxide, total [Moles /volume] in Serum or PlasmaOrdered By: Jesus Ayala on 08-02-2024 CO2 [Moles/Vol] 24.6 mmol/L Normal 21.0-31.0 [facility] Comment on above: Performed By: #### U PE RAND, CAMILLA,URINE, ALDOLASE, SPE, CAMILLA SERUM #### [facility] , #### ADDONUAPLUS, T4F, ESR, CMP, CK, CBC, CRP, TSH3 #### [facility] [address] [place] [address] [place] CO2 [Moles/Vol] Carbon dioxide, tota l [Moles/volume] in Serum or Plasma 21.0-31.0 [facility] Chloride [Moles/volume] in S aislinn or PlasmaOrdered By: Jesus Ayala on 08-02-2024 Chloride [Moles/Vol] 105 mmol/L Normal 98-107 [facility] Comment on above: Performed By: #### U PE RAND, CAMILLA,URINE, ALDOLASE, SPE, CAMILLA SERUM #### [facility] , #### ADDONUAPLUS, T4F, ESR, CMP, CK, CBC, CRP, TSH3 #### [facility] [address] Chloride [Moles/Vol] Chloride [Moles/vol ume] in Serum or Plasma 98-107 [facility] Color Auto (U)Ordered By: Ciarra Ayala on 08-02-2024 Color (U) Color of Urine by Auto Yellow Fi [facility] Color of Urine by AutoOrdere d By: Jesus Ayala on 08-02-2024 Color (U) Light-yellow Normal Yellow [facility] Comment on above: Order Comment: Name Collection Type:: Clean-Voided Midstream Performed By: #### U PE RAND, CAMILLA,URINE, ALDOLASE, SPE, CAMILLA SERUM #### [facility] , #### ADDONUAPLUS, T4F, ESR, CMP, CK, CBC, CRP, TSH3 #### [facility] [address] Complete Blood Count Auto Di ffon 08-02-2024 Mean Corpuscular HGB Conc 33.5 g/dL Normal 32.0-35.0 [facility] Comment on above: Performed By: #### U PE RAND, CAMILLA,URINE, ALDOLASE, SPE, CAMILLA SERUM ####[facility] ,#### ADDONUAPLUS, T4F, ESR, CMP, CK, CBC, CRP, TSH3 ####[facility] Anf[address] NRBC% 0.1 /100{WBC} Normal 0-0.5 [facility] Comment on above: Performed By: #### U PE RAND, CAMILLA,URINE, ALDOLASE, SPE, CAMILLA SERUM ####[facility] ,#### ADDONUAPLUS, T4F, ESR, CMP, CK, CBC, CRP, TSH3 ####[facility] Rty[address] Comprehensive Metabolic Pane jonathan 08-02-2024 Albumin [Mass/Vol] 4.3 g/dL Normal 3.5-5.7 [facility] Comment on above: Performed By: #### U PE RAND, CAMILLA,URINE, ALDOLASE, SPE, CAMILLA SERUM #### [facility] , #### ADDONUAPLUS, T4F, ESR, CMP, CK, CBC, CRP, TSH3 #### [address] GFR/1.73 sq M.predicted MDRD (S/P/Bld) [Vol rate/Area] mL/min/{1.73_m2} Normal [facility] Comment on above: Performed By: #### U PE RAND, CAMILLA,URINE, ALDOLASE, SPE, CAMILLA SERUM #### [facility] , #### ADDONUAPLUS, T4F, ESR, CMP, CK, CBC, CRP, TSH3 #### [address] Creatine kinase [Enzymatic a ctivity/volume] in Serum or PlasmaOrdered By: Jesus Ayala on 08-02-2024 CK [Catalytic activity/Vol] 39 U/L Normal [facility] Comment on above: Result Comment: PERF ORMED BY: [place] [address] PATHOLOGIST SERVICE TECH/WELDER ANAHY MCKEE M.D. Performed By: #### U PE RAND, CAMILLA,URINE, ALDOLASE, SPE, CAMILLA SERUM #### [facility] , #### ADDONUAPLUS, T4F, ESR, CMP, CK, CBC, CRP, TSH3 #### [address] CK [Catalytic activity/Vol] Creatine kinase [Enzymatic activity/volume] in Serum or Plasma [facility] Creatinine [Mass/volume] in Serum or PlasmaOrdered By: Jesus Ayala on 08-02-2024 Creatinine [Mass/Vol] 1.10 mg/dL Normal 0.60-1.20 [facility] Comment on above: Performed By: #### U PE RAND, CAMILLA,URINE, ALDOLASE, SPE, CAMILLA SERUM #### [facility] , #### ADDONUAPLUS, T4F, ESR, CMP, CK, CBC, CRP, TSH3 #### [facility] [address] [place] [address] Creatinine [Mass/Vol] Creatinine [Mass/v olume] in Serum or Plasma 0.60-1.20 [facility] Dipstick and Microscopicon 1 Bacteria,Urine None Seen Normal None Seen [facility] Comment on above: Order Comment: Name Collection Type:: Clean-Voided Midstream Performed By: #### U PE RAND, CAMILLA,URINE, ALDOLASE, SPE, CAMILLA SERUM #### [facility] , #### ADDONUAPLUS, T4F, ESR, CMP, CK, CBC, CRP, TSH3 #### [address] Bilirubin,Urine Negative Normal Negative [facility] Comment on above: Order Comment: Name Collection Type:: Clean-Voided Midstream Performed By: #### U PE RAND, CAMILLA,URINE, ALDOLASE, SPE, CAMILLA SERUM #### [facility] , #### ADDONUAPLUS, T4F, ESR, CMP, CK, CBC, CRP, TSH3 #### [facility] [address] [place] [address] Glucose Ql (U) 50 mg/dL High Normal [facility] Comment on above: Order Comment: Name Collection Type:: Clean-Voided Midstream Performed By: #### U PE RAND, CAMILLA,URINE, ALDOLASE, SPE, CAMILLA SERUM #### [facility] , #### ADDONUAPLUS, T4F, ESR, CMP, CK, CBC, CRP, TSH3 #### [address] Hyaline Casts,Urine 0-8 Normal 0-8 [facility] Comment on above: Order Comment: Name Collection Type:: Clean-Voided Midstream Result Comment: PERF ORMED BY: [place] [address] PATHOLOGIST SERVICE TECH/WELDER ANAHY MCKEE M.D. Performed By: #### U PE RAND, CAMILLA,URINE, ALDOLASE, SPE, CAMILLA SERUM #### [facility] , #### ADDONUAPLUS, T4F, ESR, CMP, CK, CBC, CRP, TSH3 #### [address] Nitrite,Urine Negative Normal Negative [facility] Comment on above: Order Comment: Name Collection Type:: Clean-Voided Midstream Performed By: #### U PE RAND, CAMILLA,URINE, ALDOLASE, SPE, CAMILLA SERUM #### [facility] , #### ADDONUAPLUS, T4F, ESR, CMP, CK, CBC, CRP, TSH3 #### [address] Occult Blood,Urine Negative Normal Negative [facility] Comment on above: Order Comment: Name Collection Type:: Clean-Voided Midstream Performed By: #### U PE RAND, CAMILLA,URINE, ALDOLASE, SPE, CAMILLA SERUM #### [facility] , #### ADDONUAPLUS, T4F, ESR, CMP, CK, CBC, CRP, TSH3 #### [address] Protein,Urine Negative Normal Negative [facility] Comment on above: Order Comment: Name Collection Type:: Clean-Voided Midstream Performed By: #### U PE RAND, CAMILLA,URINE, ALDOLASE, SPE, CAMILLA SERUM #### [facility] , #### ADDONUAPLUS, T4F, ESR, CMP, CK, CBC, CRP, TSH3 #### [address] RBC,Urine 3-4 Normal 0-4 [facility] Comment on above: Order Comment: Name Collection Type:: Clean-Voided Midstream Performed By: #### U PE RAND, CAMILLA,URINE, ALDOLASE, SPE, CAMILLA SERUM #### [facility] , #### ADDONUAPLUS, T4F, ESR, CMP, CK, CBC, CRP, TSH3 #### [address] Specificy [place],Urine 1.013 Normal 1.001-1.030 [facility] Comment on above: Order Comment: Name Collection Type:: Clean-Voided Midstream Performed By: #### U PE RAND, CAMILLA,URINE, ALDOLASE, SPE, CAMILLA SERUM #### [facility] , #### ADDONUAPLUS, T4F, ESR, CMP, CK, CBC, CRP, TSH3 #### [address] Squamous Epithelial Cell,Urine 5-9 High 0-2 [facility] Comment on above: Order Comment: Name Collection Type:: Clean-Voided Midstream Performed By: #### U PE RAND, CAMILLA,URINE, ALDOLASE, SPE, CAMILLA SERUM #### [facility] , #### ADDONUAPLUS, T4F, ESR, CMP, CK, CBC, CRP, TSH3 #### [address] Urobilinogen,Urine Normal Normal Normal [facility] Comment on above: Order Comment: Name Collection Type:: Clean-Voided Midstream Performed By: #### U PE RAND, CAMILLA,URINE, ALDOLASE, SPE, CAMILLA SERUM #### [facility] , #### ADDONUAPLUS, T4F, ESR, CMP, CK, CBC, CRP, TSH3 #### [address] WBC,Urine 3-4 Normal 0-4 [facility] Comment on above: Order Comment: Name Collection Type:: Clean-Voided Midstream Performed By: #### U PE RAND, CAMILLA,URINE, ALDOLASE, SPE, CAMILLA SERUM #### [facility] , #### ADDONUAPLUS, T4F, ESR, CMP, CK, CBC, CRP, TSH3 #### [facility] [address] Eosinophils Auto (Bld) [#/Vo l]Ordered By: Jesus Ayala on 08-02-2024 Eosinophils (Bld) [#/Vol] Automated eosinophil count 0.0-0.45 [facility] Eosinophils/100 WBC Auto (Bl d)Ordered By: Jesus Ayala on 08-02-2024 Eosinophils/100 WBC (Bld) Automated eosinophil % . [facility] Erythrocyte Sedimentation Ra mathieu 08-02-2024 ESR (Bld) [Velocity] 73 mm/h High 0-19 [facility] Comment on above: Result Comment: PERF ORMED BY: [facility] [address] [place] [address] PATHOLOGIST SERVICE TECH/WELDER AANHY MCKEE M.D. Performed By: #### U PE RAND, CAMILLA,URINE, ALDOLASE, SPE, CAMILLA SERUM ####[facility] ,#### ADDONUAPLUS, T4F, ESR, CMP, CK, CBC, CRP, TSH3 ####[facility] [id number] Erythrocyte distribution wid th Auto (RBC) [Ratio]Ordered By: Jesus Ayala on 08-02-2024 Erythrocyte distribution width (RBC) [Ratio] Erythrocyte distribution width [Ratio] by Automated count High 11.9-15.3 [facility] Erythrocyte distribution wid th [Ratio] by Automated countOrdered By: Jesus Ayala on 08-02-2024 Erythrocyte distribution width (RBC) [Ratio] 15.7 % High 11.9-15.3 [facility] Comment on above: Performed By: #### U PE RAND, CAMILLA,URINE, ALDOLASE, SPE, CAMILLA SERUM ####[facility] ,#### ADDONUAPLUS, T4F, ESR, CMP, CK, CBC, CRP, TSH3 ####[facility] Erythrocyte sedimentation ra te by Photometric methodOrdered By: Jesus Ayala on 08-02-2024 ESR Photometric method (Bld) [Velocity] 73 mm/hr High 0-19 [facility] ESR Photometric method (Bld) [Velocity] Erythrocyte sedimentation rate by Photometric method High 0-19 [facility] Erythrocytes [#/area] in Uri ne sediment by Automated countOrdered By: Jesus Ayala on 08-02-2024 RBC Auto (Urine sed) [#/Area] 3-4 [HPF] 0-4 [facility] Erythrocytes [#/volume] in B lood by Automated countOrdered By: Jesus Ayala on 08-02-2024 RBC (Bld) [#/Vol] 4.37 10*6/uL Normal 3.60-5.00 [facility] Comment on above: Performed By: #### U PE RAND, CAMILLA,URINE, ALDOLASE, SPE, CAMILLA SERUM ####[facility] ,#### ADDONUAPLUS, T4F, ESR, CMP, CK, CBC, CRP, TSH3 ####[facility] Globulin Calc (S) [Mass/Vol] Ordered By: Jesus Ayala on 08-02-2024 Globulin (S) [Mass/Vol] Serum globulin measurement by calculation (mass/volume) [facility] Glucose [Mass/volume] in Ser um or PlasmaOrdered By: Jesus Ayala on 08-02-2024 Glucose [Mass/Vol] 146 mg/dL High 70-100 [facility] Comment on above: ADA recommended refe rence rangeRandom Glucose Reference Range is dependent on time and content of last meal. Glucose of more than 200 mg/dL in a nonstressed, ambulatory subject supports the diagnosis of Diabetes Mellitus. Result Comment: Nenzel om Glucose Reference Range is dependent on time and content of last meal. Glucose of more than 200 mg/dL in a nonstressed, ambulatory subject supports the diagnosis of Diabetes Mellitus. ADA recommended reference range Performed By: #### U PE RAND, CAMILLA,URINE, ALDOLASE, SPE, CAMILLA SERUM #### [facility] , #### ADDONUAPLUS, T4F, ESR, CMP, CK, CBC, CRP, TSH3 #### [facility] [address] Glucose [Mass/Vol] Glucose [Mass/volume ] in Serum or Plasma High 70-100 [facility] Comment on above: ADA recommended refe rence rangeRandom Glucose Reference Range is dependent on time and content of last meal. Glucose of more than 200 mg/dL in a nonstressed, ambulatory subject supports the diagnosis of Diabetes Mellitus. Glucose [Mass/volume] in Uri ne by Test stripOrdered By: Jesus Ayala on 08-02-2024 Glucose Test strip (U) [Mass/Vol] 50 mg/dL High Normal [facility] Glucose Test strip (U) [Mass/Vol] Glucose [Mass/volume] in Urine by Test strip [facility] Hematocrit Auto (Bld) [Volum e fraction]Ordered By: Jesus Ayala on 08-02-2024 Hematocrit (Bld) [Volume fraction] Hematocrit [Volume Fraction] of Blood by Automated count 34.0-46.4 [facility] Hematocrit [Volume Fraction] of Blood by Automated countOrdered By: Jesus Ayala on 08-02-2024 Hematocrit (Bld) [Volume fraction] 37.0 % Normal 34.0-46.4 [facility] [facility] Comment on above: Performed By: #### U PE RAND, CAMILLA,URINE, ALDOLASE, SPE, CAMILLA SERUM ####[facility] ,#### ADDONUAPLUS, T4F, ESR, CMP, CK, CBC, CRP, TSH3 ####[facility] [id number] [address] Hemoglobin Test strip Ql (U) Ordered By: Jesus Ayala on 08-02-2024 Hemoglobin Ql (U) Negative Negative [facility] Hemoglobin Ql (U) Hemoglobin [Presence ] in Urine by Test strip Negative [facility] Hemoglobin [Mass/volume] in BloodOrdered By: Jesus Jamie on 08-02-2024 Hemoglobin (Bld) [Mass/Vol] 12.4 g/dL Normal 11.8-15.4 [facility] Comment on above: Performed By: #### U PE RAND, CAMILLA,URINE, ALDOLASE, SPE, CAMILLA SERUM ####[facility] ,#### ADDONUAPLUS, T4F, ESR, CMP, CK, CBC, CRP, TSH3 ####[place] [address] [address] Hemoglobin (Bld) [Mass/Vol] Hemoglobin [Mass/volume] in Blood 11.8-15.4 [facility] Immunofixation for UrineOrde red By: Jesus Ayala on 08-02-2024 Interpretation Immunofixation (U) [Interp] Immunofixation for Urine . [facility] Comment on above: No monoclonality det ected.Performed at: [facility] [address] [id number] Director: Gabriel Whitman PhD, Phone: [phone] Immunofixation, (CAMILLA), Urine on 08-02-2024 Immunofixation, (CAMILLA), Urine Comment Normal . [facility] Comment on above: Result Comment: No m onoclonality detected. Performed at: [facility] [address] [id number] Vocational Case Manager: Gabriel Whitman PhD, Phone: [phone] Performed By: #### U PE RAND, CAMILLA,URINE, ALDOLASE, SPE, CAMILLA SERUM ####[facility] ,#### ADDONUAPLUS, T4F, ESR, CMP, CK, CBC, CRP, TSH3 ####[facility] Immunofixation,Serumon 08-02 Immunofixation, Serum Comment Normal . [facility] Comment on above: Result Comment: No m onoclonality detected. Performed By: #### U PE RAND, CAMILLA,URINE, ALDOLASE, SPE, CAMILLA SERUM ####[facility] ,#### ADDONUAPLUS, T4F, ESR, CMP, CK, CBC, CRP, TSH3 ####[place] [address] [address] Immunoglobulin A, Serum 136 mg/dL Normal 87-352 [facility] Comment on above: Performed By: #### U PE RAND, CAMILLA,URINE, ALDOLASE, SPE, CAMILLA SERUM ####[facility] ,#### ADDONUAPLUS, T4F, ESR, CMP, CK, CBC, CRP, TSH3 ####[place] [address] [address] Immunoglobulin G 1357 mg/dL Normal [phone] [facility] Comment on above: Performed By: #### U PE RAND, CAMILLA,URINE, ALDOLASE, SPE, CAMILLA SERUM ####[facility] ,#### ADDONUAPLUS, T4F, ESR, CMP, CK, CBC, CRP, TSH3 ####[address] Immunoglobulin M, Serum 94 mg/dL Normal 26-217 [facility] Comment on above: Result Comment: Perf ormed at: - [facility] [address] [id number] Vocational Case Manager: Gabriel Whitman PhD, Phone: [phone] Performed By: #### U PE RAND, CAMILLA,URINE, ALDOLASE, SPE, CAMILLA SERUM ####[facility] ,#### ADDONUAPLUS, T4F, ESR, CMP, CK, CBC, CRP, TSH3 ####[place] [id number] [facility] [[email or web address]] Ketones Test strip Ql (U)Ord ered By: Jesus Ayala on 08-02-2024 Ketones Ql (U) Ketones [Presence] i n Urine by Test strip Negative [facility] Ketones [Presence] in Urine by Test stripOrdered By: Jesus Ayala on 08-02-2024 Ketones Ql (U) Negative Normal Negative [facility] Comment on above: Order Comment: Name Collection Type:: Clean-Voided Midstream Performed By: #### U PE RAND, CAMILLA,URINE, ALDOLASE, SPE, CAMILLA SERUM #### [facility] , #### ADDONUAPLUS, T4F, ESR, CMP, CK, CBC, CRP, TSH3 #### [facility] [address] Laboratory - UrinalysisOrder ed By: Jesus Gruberrow on 08-02-2024 Hyaline casts LM Ql (Urine sed) 0-8 [LPF] 0-8 [facility] Leukocyte esterase [Presence ] in Urine by Test stripOrdered By: Jesus Ayala on 08-02-2024 Leukocyte esterase Test strip Ql (U) Negative Normal Negative [facility] Comment on above: Order Comment: Name Collection Type:: Clean-Voided Midstream Performed By: #### U PE RAND, CAMILLA,URINE, ALDOLASE, SPE, CAMILLA SERUM #### [facility] , #### ADDONUAPLUS, T4F, ESR, CMP, CK, CBC, CRP, TSH3 #### [facility] [address] [place] [address] [place] Leukocyte esterase Test strip Ql (U) Leukocyte esterase [Presence] in Urine by Test strip Negative [facility] Leukocytes [#/area] in Urine sediment by Automated countOrdered By: Jesus Jamie on 08-02-2024 WBC Auto (Urine sed) [#/Area] 3-4 [HPF] 0-4 [facility] Leukocytes [#/volume] correc noah for nucleated erythrocytes in Blood by Automated counOrdered By: Jesus Ayala on 08-02-2024 WBC corrected for nucl RBC Auto (Bld) [#/Vol] 7.8 10*3/uL 3.8-11.6 [facility] WBC corrected for nucl RBC Auto (Bld) [#/Vol] Leukocytes [#/volume] corrected for nucleated erythrocytes in Blood by Automated coun 3.8-11.6 [facility] Leukocytes [#/volume] in Blo od by Automated countOrdered By: Jesus Jamie on 08-02-2024 WBC (Bld) [#/Vol] 7.8 10*3/uL Normal 3.8-11.6 [facility] Comment on above: Performed By: #### U PE RAND, CAMILLA,URINE, ALDOLASE, SPE, CAMILLA SERUM ####[facility] ,#### ADDONUAPLUS, T4F, ESR, CMP, CK, CBC, CRP, TSH3 ####[facility] [id number] [place] [id number] [place] Lymphocytes Auto (Bld) [#/Vo l]Ordered By: Jesus Ayala on 08-02-2024 Lymphocytes (Bld) [#/Vol] Lymphocytes [#/volume] in Blood by Automated count 1.00-4.8 [facility] Lymphocytes [#/volume] in Bl ood by Automated countOrdered By: Jesus Ayala on 08-02-2024 Lymphocytes (Bld) [#/Vol] 1.2 10*3/uL Normal 1.00-4.8 [facility] Comment on above: Performed By: #### U PE RAND, CAMILLA,URINE, ALDOLASE, SPE, CAMILLA SERUM ####[facility] ,#### ADDONUAPLUS, T4F, ESR, CMP, CK, CBC, CRP, TSH3 ####[place] [id number] [facility] [[email or web address]] Lymphocytes/100 WBC Auto (Bl d)Ordered By: Jesus Ayala on 08-02-2024 Lymphocytes/100 WBC (Bld) Lymphocytes/100 leukocytes in Blood by Automated count . [facility] Lymphocytes/100 leukocytes i n Blood by Automated countOrdered By: Jesus Ayala on 08-02-2024 Lymphocytes/100 WBC (Bld) 15.0 % Normal . [facility] Comment on above: Performed By: #### U PE RAND, CAMILLA,URINE, ALDOLASE, SPE, CAMILLA SERUM ####[facility] ,#### ADDONUAPLUS, T4F, ESR, CMP, CK, CBC, CRP, TSH3 ####[facility] [id number] [address] MCH Auto (RBC) [Entitic mass ]Ordered By: Jesus Ayala on 08-02-2024 MCH (RBC) [Entitic mass] MCH [Entitic mass] by Automated count 24.7-34.3 [facility] MCH [Entitic mass] by Automa noah countOrdered By: Jesus Ayala on 08-02-2024 MCH (RBC) [Entitic mass] 28.3 pg Normal 24.7-34.3 [facility] Comment on above: Performed By: #### U PE RAND, CAMILLA,URINE, ALDOLASE, SPE, CAMILLA SERUM ####[facility] ,#### ADDONUAPLUS, T4F, ESR, CMP, CK, CBC, CRP, TSH3 ####[address] MCHC Auto (RBC) [Mass/Vol]Or dered By: Jesus Ayala on 08-02-2024 MCHC (RBC) [Mass/Vol] 33.5 g/dL 32.0-35.0 [facility] MCHC (RBC) [Mass/Vol] MCHC [Mass/volume] by Automated count 32.0-35.0 [facility] MCV Auto (RBC) [Entitic vol] Ordered By: Jesus Ayala on 08-02-2024 MCV (RBC) [Entitic vol] MCV [Entitic vol ume] by Automated count 80-100 [facility] MCV [Entitic volume] by Auto mated countOrdered By: Jesus Ayala on 08-02-2024 MCV (RBC) [Entitic vol] 84.6 fL Normal 80-100 F [facility] Comment on above: Performed By: #### U PE RAND, CAMILLA,URINE, ALDOLASE, SPE, CAMILLA SERUM ####[facility] ,#### ADDONUAPLUS, T4F, ESR, CMP, CK, CBC, CRP, TSH3 ####[address] Monocytes Auto (Bld) [#/Vol] Ordered By: Jesus Ayala on 08-02-2024 Monocytes (Bld) [#/Vol] Automated blood monocyte count 0.0-0.8 [facility] Monocytes/100 WBC Auto (Bld) Ordered By: Jesus Ayala on 08-02-2024 Monocytes/100 WBC (Bld) Automated monocyte % . [facility] Neutrophils Auto (Bld) [#/Vo l]Ordered By: Jesus Ayala on 08-02-2024 Neutrophils (Bld) [#/Vol] Neutrophils [#/volume] in Blood by Automated count 1.8-7.7 [facility] Neutrophils [#/volume] in Bl ood by Automated countOrdered By: Jesus Ayala on 08-02-2024 Neutrophils (Bld) [#/Vol] 6.0 10*3/uL Normal 1.8-7.7 [facility] Comment on above: Performed By: #### U PE RAND, CAMILLA,URINE, ALDOLASE, SPE, CAMILLA SERUM ####[facility] ,#### ADDONUAPLUS, T4F, ESR, CMP, CK, CBC, CRP, TSH3 ####[facility] Shb[address] Neutrophils/100 WBC Auto (Bl d)Ordered By: Jesus Ayala on 08-02-2024 Neutrophils/100 WBC (Bld) Automated neutrophil % . [facility] Nitrite Test strip Ql (U)Ord ered By: Jesus Ayala on 08-02-2024 Nitrite Ql (U) Negative Negative [facility] Nitrite Ql (U) Nitrite [Presence] i n Urine by Test strip Negative [facility] No Panel InformationOrdered By: Jesus Ayala on 08-02-2024 Estimated GFR (CKD-EPI) > 60.0 mL/Min [facility] Creatinine Clearance (Chem N/A [facility] Protein Electrophoresis M-Maury Not observed g/dL Not Observed [facility] Protein Electrophoresis Note Comment . [facility] Comment on above: Protein electrophore sis scan will follow via computer,mail, or private investigator delivery.Performed at: [address] [id number] Director: Gabriel Whitman PhD, Phone: [phone] Urine Random Prot Electrophor Note Comment . [facility] Comment on above: Protein electrophore sis scan will follow via computer,mail, or private investigator delivery. Nucleated erythrocytes [Pres ence] in Blood by Automated countOrdered By: Jesus Ayala on 08-02-2024 Nucleated RBC Auto Ql (Bld) 0.1 /100{WBC} 0-0.5 [facility] Nucleated RBC Auto Ql (Bld) Nucleated erythrocytes [Presence] in Blood by Automated count 0-0.5 [facility] Platelet mean volume Auto (B ld) [Entitic vol]Ordered By: Jesus Ayala on 08-02-2024 Platelet mean volume (Bld) [Entitic vol] Platelet mean volume [Entitic volume] in Blood by Automated count 6.3-10.7 [facility] Platelet mean volume [Entiti c volume] in Blood by Automated countOrdered By: Jesus Ayala on 08-02-2024 Platelet mean volume (Bld) [Entitic vol] 6.6 fL Normal 6.3-10.7 [facility] Comment on above: Performed By: #### U PE RAND, CAMILLA,URINE, ALDOLASE, SPE, CAMILLA SERUM ####[facility] ,#### ADDONUAPLUS, T4F, ESR, CMP, CK, CBC, CRP, TSH3 ####[facility] Ari9143 [address] Platelets Auto (Bld) [#/Vol] Ordered By: Jesus Ayala on 08-02-2024 Platelets (Bld) [#/Vol] Platelets [#/vol ume] in Blood by Automated count 150-450 [facility] Platelets [#/volume] in Bloo d by Automated countOrdered By: Jesus Ayala on 08-02-2024 Platelets (Bld) [#/Vol] 439 10*3/uL Normal 150-450 [facility] Comment on above: Performed By: #### U PE RAND, CAMILLA,URINE, ALDOLASE, SPE, CAMILLA SERUM ####[facility] ,#### ADDONUAPLUS, T4F, ESR, CMP, CK, CBC, CRP, TSH3 ####[facility] [place] [address] [place] Potassium [Moles/volume] in Serum or PlasmaOrdered By: Jesus Ayala on 08-02-2024 Potassium [Moles/Vol] 3.8 mmol/L Normal 3.5-5.1 [facility] Comment on above: Performed By: #### U PE RAND, CAMILLA,URINE, ALDOLASE, SPE, CAMILLA SERUM #### [facility] , #### ADDONUAPLUS, T4F, ESR, CMP, CK, CBC, CRP, TSH3 #### [facility] [address] [place] [address] [place] Potassium [Moles/Vol] Potassium [Moles/v olume] in Serum or Plasma 3.5-5.1 [facility] Protein Electro, Random Urin yonis 08-02-2024 Albumin, Urine 36.1 % Normal . [facility] Comment on above: Performed By: #### U PE RAND, CAMILLA,URINE, ALDOLASE, SPE, CAMILLA SERUM ####[facility] ,#### ADDONUAPLUS, T4F, ESR, CMP, CK, CBC, CRP, TSH3 ####[place] [address] [place] Czotv-1-Ssbugydd, Urine 4.1 % Normal . T marcelle [facility] Comment on above: Performed By: #### U PE RAND, CAMILLA,URINE, ALDOLASE, SPE, CAMILLA SERUM ####[facility] ,#### ADDONUAPLUS, T4F, ESR, CMP, CK, CBC, CRP, TSH3 ####[facility] [place] [address] [place] Bhocg-6-Vjtftecz, Urine 18.4 % Normal . [facility] Comment on above: Performed By: #### U PE RAND, CAMILLA,URINE, ALDOLASE, SPE, CAMILLA SERUM ####[facility] ,#### ADDONUAPLUS, T4F, ESR, CMP, CK, CBC, CRP, TSH3 ####[address] Beta Globulin, Urine 24.3 % Normal . [facility] Comment on above: Performed By: #### U PE RAND, CAMILLA,URINE, ALDOLASE, SPE, CAMILLA SERUM ####[facility] ,#### ADDONUAPLUS, T4F, ESR, CMP, CK, CBC, CRP, TSH3 ####[address] Gamma Globulin, Urine 17.1 % Normal . [facility] Comment on above: Performed By: #### U PE RAND, CAMILLA,URINE, ALDOLASE, SPE, CAMILLA SERUM ####[facility] ,#### ADDONUAPLUS, T4F, ESR, CMP, CK, CBC, CRP, TSH3 ####[address] M-Maury % Not Observed Normal Not Observed [facility] Comment on above: Performed By: #### U PE RAND, CAMILLA,URINE, ALDOLASE, SPE, CAMILLA SERUM ####[facility] ,#### ADDONUAPLUS, T4F, ESR, CMP, CK, CBC, CRP, TSH3 ####[address] Please Note: Comment Normal . [facility] Comment on above: Result Comment: Prot ein electrophoresis scan will follow via computer, mail, or private investigator delivery. PERFORMED BY: [place] [address] PATHOLOGIST SERVICE TECH/WELDER ANAHY MCKEE M.D. Performed By: #### U PE RAND, CAMILLA,URINE, ALDOLASE, SPE, CAMILLA SERUM ####[facility] ,#### ADDONUAPLUS, T4F, ESR, CMP, CK, CBC, CRP, TSH3 ####[address] Protein (U) [Mass/Vol] 9.0 mg/dL Normal Not Estab. Th e [facility] Comment on above: Performed By: #### U PE RAND, CAMILLA,URINE, ALDOLASE, SPE, CAMILLA SERUM ####[facility] ,#### ADDONUAPLUS, T4F, ESR, CMP, CK, CBC, CRP, TSH3 ####[address] Protein Electrophoresis, Ser umon 08-02-2024 Albumin [Mass/Vol] 3.9 g/dL Normal 2.9-4.4 [facility] Comment on above: Performed By: #### U PE RAND, CAMILLA,URINE, ALDOLASE, SPE, CAMILLA SERUM ####[facility] ,#### ADDONUAPLUS, T4F, ESR, CMP, CK, CBC, CRP, TSH3 ####[address] Albumin/Globulin [Mass ratio] 1.1 {ratio} Normal 0.7-1.7 [facility] Comment on above: Performed By: #### U PE RAND, CAMILLA,URINE, ALDOLASE, SPE, CAMILLA SERUM ####[facility] ,#### ADDONUAPLUS, T4F, ESR, CMP, CK, CBC, CRP, TSH3 ####[address] Unbfd-5-Ucvjsxsw 0.2 g/dL Normal 0.0-0.4 [facility] Comment on above: Performed By: #### U PE RAND, CAMILLA,URINE, ALDOLASE, SPE, CAMILLA SERUM ####[facility] ,#### ADDONUAPLUS, T4F, ESR, CMP, CK, CBC, CRP, TSH3 ####[place] [id number] [facility] [[email or web address]] Rljai-0-Gbwygnbz 1.0 g/dL Normal 0.4-1.0 [facility] Comment on above: Performed By: #### U PE RAND, CAMILLA,URINE, ALDOLASE, SPE, CAMILLA SERUM ####[facility] ,#### ADDONUAPLUS, T4F, ESR, CMP, CK, CBC, CRP, TSH3 ####[address] Beta Globulin 1.2 g/dL Normal 0.7-1.3 [facility] Comment on above: Performed By: #### U PE RAND, CAMILLA,URINE, ALDOLASE, SPE, CAMILLA SERUM ####[facility] ,#### ADDONUAPLUS, T4F, ESR, CMP, CK, CBC, CRP, TSH3 ####[address] Gamma Globulin 1.3 g/dL Normal 0.4-1.8 [facility] Comment on above: Performed By: #### U PE RAND, CAMILLA,URINE, ALDOLASE, SPE, CAMILLA SERUM ####[facility] ,#### ADDONUAPLUS, T4F, ESR, CMP, CK, CBC, CRP, TSH3 ####[address] Globulin (S) [Mass/Vol] 3.6 g/dL Normal 2.2-3.9 [facility] Comment on above: Performed By: #### U PE RAND, CAMILLA,URINE, ALDOLASE, SPE, CAMILLA SERUM ####[facility] ,#### ADDONUAPLUS, T4F, ESR, CMP, CK, CBC, CRP, TSH3 ####[address] M-Maury Not Observed Normal Not Observed [facility] Comment on above: Performed By: #### U PE RAND, CAMILLA,URINE, ALDOLASE, SPE, CAMILLA SERUM ####[facility] ,#### ADDONUAPLUS, T4F, ESR, CMP, CK, CBC, CRP, TSH3 ####[facility] SPE-Note Comment Normal . [facility] Comment on above: Result Comment: Prot ein electrophoresis scan will follow via computer, mail, or private investigator delivery. Performed at: - [facility] [id number] Vocational Case Manager: Gabriel Whitman PhD, Phone: [phone] PERFORMED BY: [place] [address] PATHOLOGIST SERVICE TECH/WELDER ANAHY MCKEE M.D. Performed By: #### U PE RAND, CAMILLA,URINE, ALDOLASE, SPE, CAMILLA SERUM ####[facility] ,#### ADDONUAPLUS, T4F, ESR, CMP, CK, CBC, CRP, TSH3 ####[address] Protein Test strip (U) [Mass /Vol]Ordered By: Jesus Ayala on 08-02-2024 Protein (U) [Mass/Vol] Negative Negative [facility] Protein (U) [Mass/Vol] Protein [Mass/vol ume] in Urine by Test strip Negative [facility] Protein [Mass/volume] in Ser um or PlasmaOrdered By: Jesus Ayala on 08-02-2024 Protein [Mass/Vol] 7.5 g/dL Normal 6.0-8.5 [facility] Comment on above: Performed By: #### U PE RAND, CAMILLA,URINE, ALDOLASE, SPE, CAMILLA SERUM #### [facility] , #### ADDONUAPLUS, T4F, ESR, CMP, CK, CBC, CRP, TSH3 #### [facility] [address] [place] [address] Performed By: #### U PE RAND, CAMILLA,URINE, ALDOLASE, SPE, CAMILLA SERUM ####[facility] ,#### ADDONUAPLUS, T4F, ESR, CMP, CK, CBC, CRP, TSH3 ####[facility] [id number] [address] Protein [Mass/Vol] Protein [Mass/volume ] in Serum or Plasma 6.0-8.5 [facility] RBC Auto (Bld) [#/Vol]Ordere d By: Jesus Ayala on 08-02-2024 RBC (Bld) [#/Vol] Erythrocytes [#/volu me] in Blood by Automated count 3.60-5.00 [facility] Serum aldolase measurementOr dered By: Jesus Ayala on 08-02-[address] biopsy 3.3-10.3 [facility] Comment on above: Performed at: [place] [id number] Director: Gabriel Whitman PhD, Phone: [phone] Serum globulin measurement ( mass/volume)Ordered By: Jesus Ayala on 08-02-2024 Globulin (S) [Mass/Vol] Serum globulin measurement (mass/volume) 2.2-3.9 [facility] Serum globulin measurement b y calculation (mass/volume)Ordered By: Jesus Ayala on 08-02-2024 Globulin (S) [Mass/Vol] 3.2 g/dL Normal F [facility] Comment on above: Performed By: #### U PE RAND, CAMILLA,URINE, ALDOLASE, SPE, CAMILLA SERUM #### [facility] , #### ADDONUAPLUS, T4F, ESR, CMP, CK, CBC, CRP, TSH3 #### [facility] [address] Serum immunofixation electro phoresisOrdered By: Jesus Ayala on 08-02-2024 Serum Immunofixation Comment . [facility] Comment on above: No monoclonality det ected. Serum or plasma IgA measurem ent (mass/volume)Ordered By: Jesus Ayala on 08-02-2024 IgA [Mass/Vol] IgA [Mass/volume] in Serum or Plasma 87-352 [facility] Serum or plasma IgG measurem ent (mass/volume)Ordered By: Jesus Ayala on 08-02-2024 IgG [Mass/Vol] IgG [Mass/volume] in Serum or Plasma [phone] [facility] Serum or plasma IgM measurem ent (mass/volume)Ordered By: Jesus Ayala on 08-02-2024 IgM [Mass/Vol] IgM [Mass/volume] in Serum or Plasma 26-217 [facility] Comment on above: Performed at: [address] [id number] Director: Gabriel Whitman PhD, Phone: [phone] Serum or plasma albumin ge urement (mass/volume)Ordered By: Jesus Ayala on 08-02-2024 Albumin [Mass/Vol] Albumin [Mass/volume ] in Serum or Plasma 2.9-4.4 [facility] Serum or plasma albumin/glob ulin mass ratioOrdered By: Jesus Ayala on 08-02-2024 Albumin/Globulin [Mass ratio] 1.3 {ratio} Normal [facility] Comment on above: Performed By: #### U PE RAND, CAMILLA,URINE, ALDOLASE, SPE, CAMILLA SERUM #### [facility] , #### ADDONUAPLUS, T4F, ESR, CMP, CK, CBC, CRP, TSH3 #### [facility] [address] Albumin/Globulin [Mass ratio] Serum or plasma albumin/globulin mass ratio 0.7-1.7 [facility] Serum or plasma alpha 1 glob ulin measurement by electrophoresis (mass/volume)Ordered By: Jesus Ayala on 08-02-2024 Alpha 1 globulin Elph [Mass/Vol] Serum or plasma alpha 1 globulin measurement by electrophoresis (mass/volume) 0.0-0.4 [facility] Serum or plasma alpha 2 glob ulin measurement by electrophoresis (mass/volume)Ordered By: Jesus Ayala on 08-02-2024 Alpha 2 globulin Elph [Mass/Vol] Serum or plasma alpha 2 globulin measurement by electrophoresis (mass/volume) 0.4-1.0 [facility] Serum or plasma anion gap de terminationOrdered By: Jesus Ayala on 08-02-2024 Anion gap [Moles/Vol] 12.2 mmol/L Normal 6.0-15.0 [facility] Comment on above: Performed By: #### U PE RAND, CAMILLA,URINE, ALDOLASE, SPE, CAMILLA SERUM #### [facility] , #### ADDONUAPLUS, T4F, ESR, CMP, CK, CBC, CRP, TSH3 #### [facility] [address] Anion gap [Moles/Vol] Serum or plasma an ion gap determination 6.0-15.0 [facility] Serum or plasma beta globuli n measurement by electrophoresis (mass/volume)Ordered By: Jesus Ayala on 08-02-2024 Beta globulin Elph [Mass/Vol] Serum or plasma beta globulin measurement by electrophoresis (mass/volume) 0.7-1.3 [facility] Serum or plasma cancer antig en 125 (CA-125) measurement (units/volume)Ordered By: Blake Hinojosa on 08-02-2024 Cancer Ag 125 Qn Serum or plasma canc er antigen 125 (CA-125) measurement (units/volume) 0.0-38.1 [facility] Comment on above: [employer] El ectrochemiluminescence Immunoassay(ECLIA)Values obtained with different assay methods or kits cannotbe used interchangeably. Results cannot be interpreted asabsolute evidence of the presence or absence of malignantdisease.Performed at: [address] [id number] Director: Gabriel Whitman PhD, Phone: [phone] Serum or plasma carcinoembry onic antigen measurement (mass/volume)Ordered By: Blake Hinojosa on 08-02-2024 Carcinoembryonic Ag [Mass/Vol] 1.0 ng/mL 0.0-3.0 [facility] Comment on above: Serial tumor marker results determined by assays using different manufacturers or methods may not be comparable.[facility] cigarette machines mechanic and method:[employer] DXI, 2 SITE IMMUNOENZYMATIC SANDWICH ASSAY. Serum or plasma gamma globul in measurement by electrophoresis (mass/volume)Ordered By: Jesus Ayala on 08-02-2024 Gamma globulin Elph [Mass/Vol] Serum or plasma gamma globulin measurement by electrophoresis (mass/volume) 0.4-1.8 [facility] Sodium [Moles/volume] in Ser um or PlasmaOrdered By: Jesus Ayala on 08-02-2024 Sodium [Moles/Vol] 138 mmol/L Normal 136-145 [facility] Comment on above: Performed By: #### U PE RAND, CAMILLA,URINE, ALDOLASE, SPE, CAMILLA SERUM #### [facility] , #### ADDONUAPLUS, T4F, ESR, CMP, CK, CBC, CRP, TSH3 #### [facility] [address] Sodium [Moles/Vol] Sodium [Moles/volume ] in Serum or Plasma 136-145 [facility] Specific gravity Test strip (U) [Rel density]Ordered By: Jesus Ayala on 08-02-2024 Specific gravity (U) [Rel density] 1.013 1.001-1.030 [facility] Specific gravity (U) [Rel density] Specific gravity of Urine by Test strip 1.001-1.030 [facility] Thyrotropin [Units/volume] i n Serum or PlasmaOrdered By: Jesus Ayala on 08-02-2024 TSH Qn 2.77 m[IU]/L Normal 0.45-5.33 [facility] Comment on above: Result Comment: PERF ORMED BY: [address] [place] [address] PATHOLOGIST SERVICE TECH/WELDER ANAHY MCKEE M.D. Performed By: #### U PE RAND, CAMILLA,URINE, ALDOLASE, SPE, CAMILLA SERUM #### [facility] , #### ADDONUAPLUS, T4F, ESR, CMP, CK, CBC, CRP, TSH3 #### [facility] [address] [place] [address] [place] TSH Qn Thyrotropin [Units/volume] in Serum or Plasma 0.45-5.33 [facility] Thyroxine (T4) free [Mass/vo lume] in Serum or PlasmaOrdered By: Jesus Jamie on 08-02-2024 Free T4 [Mass/Vol] 0.68 ng/dL Normal 0.61-1.12 [facility] Comment on above: Performed By: #### U PE RAND, CAMILLA,URINE, ALDOLASE, SPE, CAMILLA SERUM #### [facility] , #### ADDONUAPLUS, T4F, ESR, CMP, CK, CBC, CRP, TSH3 #### [facility] [address] Free T4 [Mass/Vol] Thyroxine (T4) free [Mass/volume] in Serum or Plasma 0.61-1.12 [facility] Urea nitrogen [Mass/volume] in Serum or PlasmaOrdered By: Jesus Ayala on 08-02-2024 Urea nitrogen [Mass/Vol] 14 mg/dL Normal 04-29 [facility] Comment on above: Performed By: #### U PE RAND, CAMILLA,URINE, ALDOLASE, SPE, CAMILLA SERUM #### [facility] , #### ADDONUAPLUS, T4F, ESR, CMP, CK, CBC, CRP, TSH3 #### [facility] [address] [place] [address] [place] Urea nitrogen [Mass/Vol] Urea nitrogen [Mass/volume] in Serum or Plasma 04-29 [facility] Urine alpha 1 globulin/total protein by electrophoresisOrdered By: Jesus Ayala on 08-02-2024 Alpha 1 globulin Elph (U) [Mass fraction] Urine alpha 1 globulin/total protein by electrophoresis . [facility] Urine alpha 2 globulin/total protein ratio by electrophoresisOrdered By: Jesus Ayala on 08-02-2024 Alpha 2 globulin Elph (U) [Mass fraction] Urine alpha 2 globulin/total protein ratio by electrophoresis . [facility] Urine appearanceOrdered By: Jesus Ayala on 08-02-2024 Appearance (U) Clear Normal Clear [facility] Comment on above: Order Comment: Name Collection Type:: Clean-Voided Midstream Performed By: #### U PE RAND, CAMILLA,URINE, ALDOLASE, SPE, CAMILLA SERUM #### [facility] , #### ADDONUAPLUS, T4F, ESR, CMP, CK, CBC, CRP, TSH3 #### [facility] [address] Urine bacteria detection by automated methodOrdered By: Jesus Ayala on 08-02-2024 Bacteria Auto Ql (U) Bacteria [Presence] in Urine by Automated None Seen [facility] Urine beta globulin measurem ent by electrophoresis (mass/volume)Ordered By: Jesus Ayala on 08-02-2024 Beta globulin Elph (U) [Mass/Vol] Urine beta globulin measurement by electrophoresis (mass/volume) . [facility] Urine protein measurement (m ass/volume)Ordered By: Jesus Ayala on 08-02-2024 Protein (U) [Mass/Vol] Protein [Mass/vol ume] in Urine Not Estab. [facility] Urobilinogen Test strip (U) [Mass/Vol]Ordered By: Jesus Ayala on 08-02-2024 Urobilinogen (U) [Mass/Vol] Normal mg/dL Normal [facility] Urobilinogen (U) [Mass/Vol] Urobilinogen [Mass/volume] in Urine by Test strip Normal [facility] WBC Auto (Bld) [#/Vol]Ordere d By: Jesus Ayala on 08-02-2024 WBC (Bld) [#/Vol] Leukocytes [#/volume ] in Blood by Automated count 3.8-11.6 [facility] XR chest 2V*on 08-02-2024 XR chest 2V* [facility] Main [place] [address] [place] [address] XRay Report Signed Patient: Mandeep Puri MR#: [id number] 15 : 1975 Acct:[id number] Age/Sex: 48 / F ADM Date: 08/02/24 Loc: XD Room: Type: [facility] Attending Dr: Jesus Ayala MD Copies to: [...] Trupti Adorno M.D.08/02/2024 4:18 PM Dictation Location: [facility]- Transcribed By: SALMA 08/02/241617 Dictated By: Trupti Adorno MD 08/02/241616 Signed By: 08/02/241617 Normal [facility] pH Test strip (U)Ordered By: Jesus Ayala on 08-02-2024 pH (U) pH of Urine by Test strip 5.0-9.0 [facility] pH of Urine by Test stripOrd ered By: Jesus Ayala on 08-02-2024 pH (U) 7.0 [pH] Normal 5.0-9.0 [facility] Comment on above: Order Comment: Name Collection Type:: Clean-Voided Midstream Performed By: #### U PE RAND, CAMILLA,URINE, ALDOLASE, SPE, CAMILLA SERUM #### [facility] , #### ADDONUAPLUS, T4F, ESR, CMP, CK, CBC, CRP, TSH3 #### [facility] [address] [place] [address] ALL CBC WITH AUTO DIFFon BASOPHILS ABSOLUTE AUTO 0 [facility] Basophils/100 WBC (Bld) 0.5 % 0.2 - 2.0 % [facility] Eosinophils/100 WBC (Bld) 2.9 % 0.9 - 7.0 % [facility] Erythrocyte distribution width (RBC) [Ratio] 14.4 % 11.0 - 15.0 % [facility] Hematocrit (Bld) [Volume fraction] 35.2 % Low 36.0 - 48.0 % [facility] Hemoglobin (Bld) [Mass/Vol] 11.4 g/dL Low 12.0 - 16.0 g/dL [facility] IMMATURE GRANULOCYTES ABS AUTO 0.06 High [facility] Immature granulocytes/100 WBC (Bld) 0.7 % High 0.0 - 0.5 % [facility] Interpretation and review of laboratory results Abnormal [facility] LYMPHOCYTES ABSOLUTE AUTO 1.1 Low [facility] Lymphocytes/100 WBC (Bld) 14 % Low 20.5 - 60.0 % [facility] MCH (RBC) [Entitic mass] 28 pg 26.7 - 34.0 pg [facility] MCHC (RBC) [Mass/Vol] 32.4 g/dL 29.9 - 35.2 g/dL [facility] MCV (RBC) [Entitic vol] 86.5 fL 81.0 - 99.0 fL [facility] MONOCYTES ABSOLUTE AUTO 0.4 N [facility] Monocytes/100 WBC (Bld) 5 % 1.7 - 12.0 % [facility] NEUTROPHILS ABSOLUTE AUTO 6.3 [facility] Neutrophils/100 WBC (Bld) 76.9 % High 43.0 - 75.0 % [facility] Platelet mean volume (Bld) [Entitic vol] 8.3 fL Low 9.5 - 13.5 fL [facility] TBH EO # 0.2 [facility] TBH PLT 362 [facility] TB RBC 4.07 Low [facility] TB WBC 8.2 [facility] Follow-Upon 07-07-2024 Follow-Up [id number] Antonio Puri i 1975 F Date Provider Department Center 07/07/2024 SREE BOOKER [facility] Second Fl Family History Problem Relation Age of Onset Fibromyalgia Mother Heart disease Father Hypertension Sister Polycystic kidney disease Sister Hypertension Brother Polycystic kidney disease Brother Family Status - Relation Status Age at Mother Father Sister Brother Level of Service:57413 MS OFFICE/OUTPATIENT ESTABLISHED LOW MDM 20 MIN Reason for Visit and Comments: UTI [[id number]] - CT results Normal [facility] URINE CULTURE, ROUTINEon Bacteria identified Cx Nom (U) ESCHERICHIA COLI Abnormal [facility] Comment on above: Result Comment: >100 ,000 CFU/Ml Escherichia coli Susceptibility to Follow Performed By: #### L [id number] #### [facility] ([facility] [address] [place] [address] CT ABDOMEN PELVIS WO IV CONT Mer [...] kidney with innumerable circumscribed lesions within the [place] kidneys, many which are simple cysts, others [...] Epperson MD. Not Vldtd Invalid Interpretation Code [facility] ALL CBC WITH AUTO DIFFon BASOPHILS ABSOLUTE AUTO 0.0 [facility] Basophils/100 WBC (Bld) 0.4 % 0.2 - 2.0 % [facility] Eosinophils/100 WBC (Bld) 2.4 % 0.9 - 7.0 % [facility] Erythrocyte distribution width (RBC) [Ratio] 15.5 % High 11.0 - 15.0 % [facility] Hematocrit (Bld) [Volume fraction] 37.7 % 36.0 - 48.0 % [facility] Hemoglobin (Bld) [Mass/Vol] 11.9 g/dL Low 12.0 - 16.0 g/dL [facility] IMMATURE GRANULOCYTES ABS AUTO 0.03 [facility] Immature granulocytes/100 WBC (Bld) 0.4 % 0.0 - 0.5 % [facility] Interpretation and review of laboratory results Abnormal [facility] LYMPHOCYTES ABSOLUTE AUTO 1.1 Low [facility] Lymphocytes/100 WBC (Bld) 14.8 % Low 20.5 - 60.0 % [facility] MCH (RBC) [Entitic mass] 27.9 pg 26.7 - 34.0 pg [facility] MCHC (RBC) [Mass/Vol] 31.6 g/dL 29.9 - 35.2 g/dL [facility] MCV (RBC) [Entitic vol] 88.3 fL 81.0 - 99.0 fL [facility] MONOCYTES ABSOLUTE AUTO 0.4 N [facility] Monocytes/100 WBC (Bld) 5.1 % 1.7 - 12.0 % [facility] NEUTROPHILS ABSOLUTE AUTO 5.7 [facility] Neutrophils/100 WBC (Bld) 76.9 % High 43.0 - 75.0 % [facility] Platelet mean volume (Bld) [Entitic vol] 8.6 fL Low 9.5 - 13.5 fL [facility] TBH EO # 0.2 [facility] TBH PLT 333 [facility] TBH RBC 4.27 [facility] TBH WBC 7.5 [facility] Orders Onlyon 06-15-2024 Orders Only [id number] Antonio Puri i 1975 F Date Provider Department Center 06/15/2024 MUNIRA BAGLEY None Family History Problem Relation Age of Onset Fibromyalgia Mother Heart disease Father Hypertension Sister Polycystic kidney disease Sister Hypertension Brother Polycystic kidney disease Brother Family Status - Relation Status Age at Mother Father Sister Brother Normal [facility] ALL CBC WITH AUTO DIFFon BASOPHILS ABSOLUTE AUTO 0.0 N [facility] Basophils/100 WBC (Bld) 0.5 % 0.2 - 2.0 % [facility] Eosinophils/100 WBC (Bld) 3.0 % 0.9 - 7.0 % [facility] Erythrocyte distribution width (RBC) [Ratio] 15.9 % High 11.0 - 15.0 % [facility] Hematocrit (Bld) [Volume fraction] 36.3 % 36.0 - 48.0 % [facility] Hemoglobin (Bld) [Mass/Vol] 11.8 g/dL Low 12.0 - 16.0 g/dL [facility] IMMATURE GRANULOCYTES ABS AUTO 0.04 High [facility] Immature granulocytes/100 WBC (Bld) 0.5 % 0.0 - 0.5 % [facility] Interpretation and review of laboratory results Abnormal [facility] LYMPHOCYTES ABSOLUTE AUTO 1.2 [facility] Lymphocytes/100 WBC (Bld) 14.0 % Low 20.5 - 60.0 % [facility] MCH (RBC) [Entitic mass] 28.0 pg 26.7 - 34.0 pg [facility] MCHC (RBC) [Mass/Vol] 32.5 g/dL 29.9 - 35.2 g/dL [facility] MCV (RBC) [Entitic vol] 86.0 fL 81.0 - 99.0 fL [facility] MONOCYTES ABSOLUTE AUTO 0.5 N [facility] Monocytes/100 WBC (Bld) 5.7 % 1.7 - 12.0 % [facility] NEUTROPHILS ABSOLUTE AUTO 6.4 [facility] Neutrophils/100 WBC (Bld) 76.3 % High 43.0 - 75.0 % [facility] Platelet mean volume (Bld) [Entitic vol] 8.6 fL Low 9.5 - 13.5 fL [facility] TBH EO # 0.3 [facility] TBH PLT 331 [facility] RBC 4.22 [facility] WBC 8.4 [facility] Consulton 05-19-2024 Consult [id number] Antonio Puri i 1975 F Date Provider Department Center 05/19/2024 Tomasa4SREE FRANKEL [facility] Second Fl Family History Problem Relation Age of Onset Fibromyalgia Mother Heart disease Father Hypertension Sister Polycystic kidney disease Sister Hypertension Brother Polycystic kidney disease Brother Family Status - Relation Status Age at Mother Father Sister Brother Level of Service:08701 MS OFFICE/OUTPATIENT ESTABLISHED MOD MDM 30 MIN Reason for Visit and Comments: UTI [[id number]] - Recurrent chronic ecoli , has fibromyalgia and when that flairs up the UTI happens Normal [facility] CREATININE, URINE, RANDOMon 04-27-2024 Creatinine (U) [Mass/Vol] 142.0 mg/dL Normal 26-[address] [facility] Comment on above: Performed By: #### L [id number] ####[facility] ([facility])[address] [place] [address] Follow-Upon 04-27-2024 Follow-Up [id number] Antonio Puri i 1975 F Date Provider Department Center 04/27/2024 124-MUNIRA PHAN TXP None Family History Problem Relation Age of Onset Fibromyalgia Mother Heart disease Father Hypertension Sister Polycystic kidney disease Sister Hypertension Brother Polycystic kidney disease Brother Family Status - Relation Status Age at Mother Father Sister Brother Level of Service:03892 MS OFFICE/OUTPATIENT ESTABLISHED MOD MDM 30 MIN [...] mg because they are smaller pills. Normal [facility] PROTEIN, URINE, RANDOMon Protein (U) [Mass/Vol] 51.7 mg/dL Normal [facility] Comment on above: Result Comment: Ther e are no established reference values for random urine specimens. Performed By: #### L [id number] #### [facility] ([facility]) [address] [place] [address] URINALYSISon 04-27-2024 BILIRUBIN, TOTAL PRESENCE IN URINE Negative Normal Negative [facility] Comment on above: Performed By: #### L [id number] #### [facility] [address] [place] [address] Clarity (U) Slightly Cloudy Abnormal Clear [facility] Comment on above: Performed By: #### L [id number] #### [facility] ([facility]) [address] [place] [address] Color (U) Yellow Normal Yellow [facility] Comment on above: Performed By: #### L [id number] #### [facility] [address] [place] [address] Glucose (U) [Mass/Vol] Negative Normal Negative Un [facility] Comment on above: Performed By: #### L [id number] #### [facility] ([facility]) [address] [place] [address] HEMOGLOBIN PRESENCE IN URINE Small Abnormal Negative [facility] Comment on above: Performed By: #### L [id number] #### [facility] ([facility]) [address] [place] [address] Ketones Ql (U) Negative Normal Negative [facility] Comment on above: Performed By: #### L [id number] #### [facility] ([facility]) [address] [place] [address] LEUKOCYTE ESTERASE PRESENCE IN URINE BY TEST STRIP Large Abnormal Negative [facility] Comment on above: Performed By: #### L [id number] #### [facility] ([facility]) [address] [place] [address] NITRITE PRESENCE IN URINE Positive Abnormal Negative [facility] Comment on above: Performed By: #### L [id number] #### [facility] ([facility]) [address] [place] [address] pH (U) 6.0 [pH] Normal 5.0-8.[address] [facility] Comment on above: Performed By: #### L [id number] #### [facility] ([facility]) [address] [place] [address] Protein (U) [Mass/Vol] 100 mg/dL Abnormal Negative [facility] Comment on above: Performed By: #### L [id number] #### [facility] ([facility]) [address] [place] [address] Specific gravity (U) [Rel density] 1.012 Low 1.015-1.[address] [facility] Comment on above: Performed By: #### L [id number] #### [facility] ([facility]) [address] [place] [address] URINALYSIS MICROSCOPICon 07- 23-2024 CASTS IN URINE Normal [facility] Comment on above: Performed By: #### L [id number] #### [facility] ([facility]) [address] [place] [address] CRYSTALS IN URINE Normal [facility] Comment on above: Performed By: #### L [id number] #### [facility] ([facility]) [address] [place] [address] MUCUS (#/HPF) IN URINE SEDIMENT Occasional Normal None Seen, Occasional, Few [facility] Comment on above: Performed By: #### L [id number] #### [facility] ([facility]) [address] [place] [address] RBC (#/HPF) IN URINE SEDIMENT 11-20 Abnormal None Seen [facility] Comment on above: Performed By: #### L [id number] #### [facility] ([facility]) [address] [place] [address] SQUAMOUS EPITHELIAL CELLS (#/HPF) IN URINE SEDIMENT Moderate Abnormal None Seen, Occasional [facility] Comment on above: Performed By: #### L [id number] #### [facility] ([facility]) [address] [place] [address] WBC (LEUKOCYTE) (#/HPF) IN URINE SEDIMENT >100 Abnormal None Seen [facility] Comment on above: Performed By: #### L [id number] #### [facility] ([facility]) [address] [place] [address] URINE CULTURE, ROUTINEon Bacteria identified Cx Nom (U) ESCHERICHIA COLI Abnormal [facility] Comment on above: Result Comment: >100 ,000 CFU/Ml Escherichia coli Susceptibility to Follow Performed By: #### L [id number] ####[facility] ([facility])[address] [place] [address] BILIRUBIN, DIRECTon 04-23-20 24 Magnesium [Mass/Vol] 0.0 mg/dL Normal 0-0.2 [facility] Comment on above: Performed By: #### L [id number] #### [facility] [address] [place] [address] CBC WITH AUTO DIFFERENTIALon 04-23-2024 Basophils (Bld) [#/Vol] 0.05 10*3/uL Normal 0.00-0.[address] [facility] Comment on above: Performed By: #### L [id number] #### [facility] ([facility]) [address] [place] [address] Basophils/100 WBC (Bld) 0.6 % Normal 0.0-1.0 [facility] Comment on above: Performed By: #### L [id number] #### [facility] ([facility]) [address] [place] [address] Eosinophils (Bld) [#/Vol] 0.17 10*3/uL Normal 0.00-0.[address] [facility] Comment on above: Performed By: #### L [id number] #### [facility] ([facility]) [address] [place] [address] Eosinophils/100 WBC (Bld) 1.9 % Normal 0.0-6.[address] [facility] Comment on above: Performed By: #### L [id number] #### [facility] ([facility]) [address] [place] [address] Erythrocyte distribution width (RBC) [Ratio] 15.7 % High 11.5-15.[address] [facility] Comment on above: Performed By: #### L [id number] #### [facility] ([facility]) [address] [place] [address] ERYTHROCYTE MEAN CORPUSCULAR HEMOGLOBIN CONCENTRATION (G/DL) BY AUTOMATED 32.7 g/dL Normal 32.0-35.[address] [facility] Comment on above: Performed By: #### L [id number] #### [facility] [address] [place] [address] Hematocrit (Bld) [Volume fraction] 39.2 % Normal 36.0-48.[address] [facility] Comment on above: Performed By: #### L [id number] #### [facility] (BEAKER) [address] [place] [address] Hemoglobin (Bld) [Mass/Vol] 12.8 g/dL Normal 12.0-15.[address] [facility] Comment on above: Performed By: #### L [id number] #### [facility] [address] [place] [address] Immature granulocytes (Bld) [#/Vol] 0.06 10*3/uL Normal 0.00-0.[address] [facility] Comment on above: Performed By: #### L [id number] #### [facility] ([facility]) [address] [facility] [address] Immature granulocytes/100 WBC (Bld) 0.7 % Normal 0.0-1.[address] [facility] Comment on above: Performed By: #### L [id number] #### [facility] ([facility]) [address] [place] [address] Lymphocytes (Bld) [#/Vol] 1.27 10*3/uL Normal 1.20-4.[address] [facility] Comment on above: Performed By: #### L [id number] #### [facility] ([facility]) [address] [place] [address] Lymphocytes/100 WBC (Bld) 14.5 % Low 20.0-45.[address] [facility] Comment on above: Performed By: #### L [id number] #### [facility] ([facility]) [address] [address] MCH (RBC) [Entitic mass] 27.7 pg Normal 27.0-33.[address] [facility] Comment on above: Performed By: #### L [id number] #### [facility] ([facility] [address] [place] [address] MCV (RBC) [Entitic vol] 84.8 fL Normal 82.0-98.0 [facility] Comment on above: Performed By: #### L [id number] #### [facility] ([facility]) [address] [place] [address] Monocytes (Bld) [#/Vol] 0.40 10*3/uL Normal 0.10-1.[address] [facility] Comment on above: Performed By: #### L [id number] #### [facility] (BEAKER) [address] [place] [address] Monocytes/100 WBC (Bld) 4.6 % Low 5.0-12.0 [facility] Comment on above: Performed By: #### L [id number] #### [facility] (BE[facility]ER) [address] [place] [address] Neutrophils (Bld) [#/Vol] 6.82 10*3/uL Normal 1.60-7.[address] [facility] Comment on above: Performed By: #### L [id number] #### [facility] ([facility]) [address] [place] [address] Neutrophils/100 WBC (Bld) 77.7 % High 40.0-72.[address] [facility] Comment on above: Performed By: #### L [id number] #### [facility] [address] [place] [address] NRBC (PER 100 WBCS) BY AUTOMATED COUNT 0.0 % Normal [address] [facility] Comment on above: Performed By: #### L [id number] #### [facility] [address] [place] [address] PLATELETS (10*3/UL) IN BLOOD AUTOMATED COUNT 337 10*3/uL Normal 150-[address] [facility] Comment on above: Performed By: #### L [id number] #### [facility] (BEAK[facility]) [address] [place] [address] RBC (Bld) [#/Vol] 4.62 10*6/uL Normal 3.80-5.00 [facility] Comment on above: Performed By: #### L [id number] #### [facility] [address] [place] [address] WBC (Bld) [#/Vol] 8.77 10*3/uL Normal 4.00-10.60 [facility] Comment on above: Performed By: #### L [id number] #### [facility] ([facility]) [address] [place] [address] COMPREHENSIVE METABOLIC PANE Jonathan 04-23-2024 Albumin [Mass/Vol] 4.4 g/dL Normal 3.5-5.7 [facility] Comment on above: Performed By: #### L [id number] #### [facility] ([facility]) [address] [place] [address] ALP [Catalytic activity/Vol] 74 U/L Normal 34-[address] [facility] [address] [facility] Comment on above: Performed By: #### L [id number] #### [facility] ([facility]) [address] [place] [address] ALT [Catalytic activity/Vol] 9 U/L Normal 7-[address] [facility] Comment on above: Performed By: #### L [id number] #### [facility] ([facility]) [address] [place] [address] Anion gap [Moles/Vol] 13 mmol/L Normal 7-20 [facility] Comment on above: Performed By: #### L [id number] #### [facility] ([facility]) [address] [place] [address] AST [Catalytic activity/Vol] 14 U/L Normal 13-[address] [facility] Comment on above: Performed By: #### L [id number] #### [facility] ([facility]) [address] [place] [address] Bilirubin [Mass/Vol] 0.4 mg/dL Normal 0.3-1.0 [facility] Comment on above: Performed By: #### L [id number] #### [facility] ([facility]) [address] [place] [address] Calcium [Mass/Vol] 9.4 mg/dL Normal 8.6-10.3 [facility] Comment on above: Performed By: #### L [id number] #### [facility] ([facility]) [address] [place] [address] Chloride [Moles/Vol] 104 mmol/L Normal 98-107 [facility] Comment on above: Performed By: #### L [id number] #### [facility] ([facility]) [address] [place] [address] CO2 [Moles/Vol] 25 mmol/L Normal 21-31 [facility] Comment on above: Performed By: #### L [id number] #### [facility] ([facility]) [address] [place] [address] Creatinine [Mass/Vol] 1.09 mg/dL Normal 0.60-1.20 [facility] Comment on above: Performed By: #### L [id number] #### [facility] ([facility]) [address] [place] [address] GLOMERULAR FILTRATION RATE ML/MIN/1.73 SQ M.PREDICTED 62.7 mL/min/1.73m*2 Normal >60.[address] [facility] Comment on above: Result Comment: The [facility]???s estimated glomerular filtration rate (eGFR) will [...] individuals. Performed By: #### L [id number] #### [facility] ([facility]) [address] [place] [address] Glucose [Mass/Vol] 108 mg/dL High 70-100 [facility] Comment on above: Performed By: #### L [id number] #### [facility] ([facility]) [address] [place] [address] Potassium [Moles/Vol] 3.5 mmol/L Normal 3.5-5.[address] [facility] Comment on above: Performed By: #### L [id number] #### [facility] [address] [place] [address] Protein [Mass/Vol] 7.6 g/dL Normal 6.0-8.3 [facility] Comment on above: Performed By: #### L [id number] #### [facility] [address] [place] [address] Sodium [Moles/Vol] 138 mmol/L Normal 136-145 [facility] Comment on above: Performed By: #### L [id number] #### [facility] ([facility]) [address] [place] [address] Urea nitrogen [Mass/Vol] 13 mg/dL Normal 7-[address] [facility] Comment on above: Performed By: #### L [id number] #### [facility] ([facility]) [address] [place] [address] UREA NITROGEN/CREATININE (MASS RATIO) IN SER/PLAS 11.[address] [facility] Comment on above: Performed By: #### L [id number] #### [facility] ([facility]) [address] [place] [address] HEMOGLOBIN A1Con 04-23-2024 Glucose [Mass/Vol] 105 mg/dL Normal [facility] Comment on above: Performed By: #### L [id number] #### [facility] ([facility] [address] [place] [address] HbA1c (Bld) [Mass fraction] 5.3 % Normal 4.0-6.[address] [facility] Comment on above: Performed By: #### L AB90 #### [facility] ([facility] [address] [place] [address] LIPID PANELon 04-23-2024 CHOL/HDL 4.0 mg/dL Normal [facility] Comment on above: Performed By: #### L [id number] #### [facility] ([facility]) [address] [place] [address] Cholesterol [Mass/Vol] 182 mg/dL Normal 120-200 Un [facility] Comment on above: Performed By: #### L [id number] #### [facility] ([facility]) [address] [place] [address] Magnesium [Mass/Vol] 166 mg/dL High 40-149 [facility] Comment on above: Result Comment: TRIG LYCERIDE REFERENCE RANGE: 20 YEARS AND OLDER CARDIOVASCULAR RISK LESS THAN 150 mg/dL LOW RISK 150 TO 199 mg/dL BORDERLINE RISK 200 mg/dL AND GREATER HIGH RISK Performed By: #### L [id number] #### [facility] ([facility]) [address] [place] [address] Magnesium [Mass/Vol] 103 mg/dL Normal 0-160 [facility] Comment on above: Performed By: #### L [id number] #### [facility] ([facility]) [address] [place] [address] Magnesium [Mass/Vol] 46 mg/dL Normal 23-92 [facility] Comment on above: Performed By: #### L [id number] #### [facility] ([facility]) [address] [place] [address] NON HDL CHOL. (LDL+VLDL) [address] [facility] Comment on above: Performed By: #### L [id number] #### [facility] ([facility]) [address] [place] [address] TOTAL VLDL-C 33 mg/dL Normal 0-[address] [facility] Comment on above: Performed By: #### L [id number] #### [facility] ([facility]) [address] [place] [address] Labon 04-23-2024 Lab [id number] Antonio Puri i 1975 F Date Provider Department Center 04/23/2024 2245-[facility] LAB RESOURCE [facility] DE Medical C Family History Problem Relation Age of Onset Fibromyalgia Mother Heart disease Father Hypertension Sister Polycystic kidney disease Sister Hypertension Brother Polycystic kidney disease Brother Family Status - Relation Status Age at Mother Father Sister Brother Normal [facility] MAGNESIUMon 04-23-2024 Magnesium [Mass/Vol] 1.8 mg/dL Low 1.9-2.7 [facility] Comment on above: Performed By: #### L [id number] #### [facility] ([facility] [address] [place] [address] PHOSPHORUSon 04-23-2024 Magnesium [Mass/Vol] 2.8 mg/dL Normal 2.5-5.0 [facility] Comment on above: Performed By: #### L [id number] #### [facility] ([facility]) [address] [place] [address] TACROLIMUS LEVELon Tacrolimus (Bld) [Mass/Vol] 10.5 ng/mL Normal 5.0-20.[address] [facility] Comment on above: Result Comment: The [employer]PER[employer] Tacrolimus assay is a delayed one-step immunoassay for the quantitative determination of tacrolimus in human whole blood using the chemiluminescent microparticle immunoassay (CMIA) technology with flexible assay protocols, referred to as Chemiflex. Performed By: #### L [id number] #### [facility] ([facility]) [address] [place] [address] URIC ACIDon 04-23-2024 Magnesium [Mass/Vol] 4.0 mg/dL Normal 2.3-6.6 [facility] Comment on above: Performed By: #### L [id number] #### [facility] ([facility]) [address] [place] [address] URINALYSISon 04-23-2024 BILIRUBIN, TOTAL PRESENCE IN URINE Negative Normal Negative [facility] Comment on above: Performed By: #### L [id number] #### [facility] ([facility]) [address] [place] [address] Clarity (U) Cloudy Abnormal Clear [facility] Comment on above: Performed By: #### L [id number] #### [facility] ([facility]) [address] [place] [address] Color (U) Yellow Normal Yellow [facility] Comment on above: Performed By: #### L [id number] #### [facility] ([facility]) [address] [place] [address] Glucose (U) [Mass/Vol] Negative Normal Negative Un [facility] Comment on above: Performed By: #### L [id number] #### [facility] ([facility]) [address] [place] [address] HEMOGLOBIN PRESENCE IN URINE Negative Normal Negative [facility] Comment on above: Performed By: #### L [id number] #### [facility] ([facility]) [address] [place] [address] Ketones Ql (U) Negative Normal Negative [facility] Comment on above: Performed By: #### L [id number] #### [facility] ([facility]) [address] [place] [address] LEUKOCYTE ESTERASE PRESENCE IN URINE BY TEST STRIP Negative Normal Negative [facility] Comment on above: Performed By: #### L [id number] #### [facility] ([facility]) [address] [place] [address] NITRITE PRESENCE IN URINE Negative Normal Negative [facility] Comment on above: Performed By: #### L [id number] #### [facility] ([facility]) [address] [place] [address] pH (U) 7.0 [pH] Normal 5.0-8.[address] [facility] Comment on above: Performed By: #### L [id number] #### [facility] ([facility]) [address] [place] [address] Protein (U) [Mass/Vol] Negative Normal [facility] Comment on above: Performed By: #### L [id number] #### [facility] ([facility]) [address] [place] [address] Specific gravity (U) [Rel density] 1.011 Low 1.015-1.[address] [facility] Comment on above: Performed By: #### L [id number] #### [facility] ([facility] [address] [place] [address] URINALYSIS MICROSCOPICon AMORPHOUS CRYSTALS (#/HPF) IN URINE Few Abnormal None Seen [facility] Comment on above: Performed By: #### L [id number] #### [facility] ([facility]) [address] [place] [address] CASTS IN URINE Normal [facility] Comment on above: Performed By: #### L [id number] #### [facility] ([facility]) [address] [place] [address] CRYSTALS IN URINE Normal [facility] Comment on above: Performed By: #### L [id number] #### [facility] ([facility]) [address] [place] [address] MUCUS (#/HPF) IN URINE SEDIMENT Occasional Normal None Seen, Occasional, Few [facility] Comment on above: Performed By: #### L [id number] #### [facility] ([facility]) [address] [place] [address] RBC (#/HPF) IN URINE SEDIMENT 3-5 Abnormal None Seen [facility] Comment on above: Performed By: #### L [id number] #### [facility] ([facility]) [address] [place] [address] SQUAMOUS EPITHELIAL CELLS (#/HPF) IN URINE SEDIMENT Many Abnormal None Seen, Occasional [facility] Comment on above: Performed By: #### L [id number] #### [facility] ([facility]) [address] [place] [address] WBC (LEUKOCYTE) (#/HPF) IN URINE SEDIMENT 3-5 Abnormal None Seen [facility] Comment on above: Performed By: #### L [id number] #### [facility] ([facility]) [address] [place] [address] URINE CULTURE, ROUTINEon Bacteria identified Cx Nom (U) <10,000 CFU/ML No Significant Growth Normal [facility] Comment on above: Performed By: #### L [id number] #### [facility] ([facility]) [address] [place] [address] US RENAL COMPLETEon 04-14-20 24 US RENAL COMPLETE EXAM: Renal Ultrasou nd with Doppler: REASON FOR EXAM: Polycystic kidneys. COMPARISON: None. TECHNIQUE: Real-time ultrasonographic evaluation of the kidneys is performed with color flow Doppler. FINDINGS: There is a transplanted right kidney. Right kidney: Numerous [place] right renal cysts. No hydronephrosis. Left kidney: Numerous [place] left renal cysts. No hydronephrosis. Uniform and [...] report is generated using voice recognition reporting (Heap). On occasion Heap erroneously drops words from the report or replaces the spoken word with similar sounding words. Please call with any questions/concerns regarding this report.* Dictated and transcribed 04/14/2024/heriberto This report has been electronically signed and approved by the interpreting radiologist. Electronically Signed René Raymond M.D. 2024-04-14 16:31:56 Normal Not Available Urine Cultureon 03-15-2024 Bacteria identified Cx Nom (U) ORGANISM: Escherichia coli (MDRO) (O:ESCCOLMDRO) [place] Count >100,000 Aerobic CODI Charge (NMIC56) - [...] RESISTANT TO ALL B-LACTAM DRUGS. PERFORMED BY: [place] [address] PATHOLOGIST SERVICE TECH/WELDER ANAHY MCKEE M.D. Normal [facility] Comment on above: Performed By: #### C UU #### [address] Documentationon 03-03-2024 Documentation [id number] Antonio Puri i 1975 F Date Provider Department Center 03/03/2024 JOSE RAFAEL AUGUST None Family History Problem Relation Age of Onset Fibromyalgia Mother Heart disease Father Hypertension Sister Polycystic kidney disease Sister Hypertension Brother Polycystic kidney disease Brother Family Status - Relation Status Age at Mother Father Sister Brother Normal [facility] P[place]ITO Antinuclear Antibodieson 11-06-2023 Antinuclear Abs, IFA Negative Normal . [facility] Comment on above: Result Comment: Nega tive <1:80 Borderline 1:80 Positive >1:80 ICAP nomenclature: AC-0 For more information about Hep-2 cell patterns use ANApatterns.org, the official website for the International Consensus on Antinuclear Antibody (PAPITO) Patterns (ICAP). Performed at: [facility] [address] [id number] Vocational Case Manager: Gabriel Whitman PhD, Phone: [phone] PERFORMED BY: [place] [address] PATHOLOGIST SERVICE TECH/WELDER ANAHY MCKEE M.D. Performed By: #### C BC, CMP, CK, CRP, ESR ####[address]#### PAPITO ####[facility] , Alanine aminotransferase [En zymatic activity/volume] in Serum or PlasmaOrdered By: Perri Ceja on 11-06-2023 ALT [Catalytic activity/Vol] 20 U/L Normal 7-52 [facility] Comment on above: Performed By: #### C BC, CMP, CK, CRP, ESR ####[place] [address] [place]#### PAPITO ####[facility] , Albumin [Mass/volume] in Ser um or Plasma by Bromocresol green (BCG) dye binding methoOrdered By: Perri Ceja on 11-06-2023 Albumin BCG dye [Mass/Vol] 4.7 g/dL 3.5-5.7 [facility] Alkaline phosphatase [Enzyma tic activity/volume] in Serum or PlasmaOrdered By: Perri Ceja on 11-06-2023 ALP [Catalytic activity/Vol] 96 U/L Normal 34-104 [facility] Comment on above: Performed By: #### C BC, CMP, CK, CRP, ESR ####[place] [address] [place]#### PAPITO ####[facility] , Aspartate aminotransferase [ Enzymatic activity/volume] in Serum or PlasmaOrdered By: Perri Ceja on 11-06-2023 AST [Catalytic activity/Vol] 16 U/L Normal 13-39 [facility] Comment on above: Performed By: #### C BC, CMP, CK, CRP, ESR ####[address]#### [place] ####[facility] , Automated basophil %Ordered By: Perri Ceja on 11-06-2023 Basophils/100 WBC (Bld) 0.7 % Normal . [facility] Comment on above: Performed By: #### C BC, CMP, CK, CRP, ESR ####[address]#### [place] ####[facility] , Automated basophil countOrde red By: Perri Ceja on 11-06-2023 Basophils (Bld) [#/Vol] 0.1 10*3/uL Normal 0.0-0.2 [facility] Comment on above: Performed By: #### C BC, CMP, CK, CRP, ESR ####[address]#### [place] ####[facility] , Automated blood monocyte cou ntOrdered By: Perri Ceja on 11-06-2023 Monocytes (Bld) [#/Vol] 0.6 10*3/uL Normal 0.0-0.8 [facility] Comment on above: Performed By: #### C BC, CMP, CK, CRP, ESR ####[place] [address] [place]#### PAPITO ####[facility] , Automated eosinophil %Ordere d By: Perri Ceja on 11-06-2023 Eosinophils/100 WBC (Bld) 3.0 % Normal . [facility] Comment on above: Performed By: #### C BC, CMP, CK, CRP, ESR ####[address]#### [place] ####[facility] , Automated eosinophil countOr dered By: Perri Ceja on 11-06-2023 Eosinophils (Bld) [#/Vol] 0.3 10*3/uL Normal 0.0-0.45 [facility] Comment on above: Performed By: #### C BC, CMP, CK, CRP, ESR ####[place] [address] [place]#### PAPITO ####[facility] , Automated monocyte %Ordered By: Perri Ceja on 11-06-2023 Monocytes/100 WBC (Bld) 6.6 % Normal . [facility] Comment on above: Performed By: #### C BC, CMP, CK, CRP, ESR ####[address]#### [place] ####[facility] , Automated neutrophil %Ordere d By: Perri Ceja on 11-06-2023 Neutrophils/100 WBC (Bld) 72.1 % Normal . [facility] Comment on above: Performed By: #### C BC, CMP, CK, CRP, ESR ####[address]#### [place] ####[facility] , Bilirubin.total [Mass/volume ] in Serum or PlasmaOrdered By: Perri Ceja on 11-06-2023 Bilirubin [Mass/Vol] 0.4 mg/dL Normal 0.3-1.0 [facility] Comment on above: Performed By: #### C BC, CMP, CK, CRP, ESR ####[place] [address] [place]#### PAPITO ####[facility] , C reactive protein [Mass/vol ume] in Serum or PlasmaOrdered By: Perri Ceja on 11-06-2023 CRP [Mass/Vol] 2.0 mg/dL 0.0-0.5 [facility] C-Reactive Proteinon 024 C-Reactive Protein 2.0 mg/dL High 0.0-0.5 [facility] Comment on above: Result Comment: PERF ORMED BY: [facility] [place] [address] PATHOLOGIST SERVICE TECH/WELDER ANAHY MCKEE M.D. Performed By: #### C BC, CMP, CK, CRP, ESR ####[address]#### [place] ####[facility] , Calcium [Mass/volume] in Ser um or PlasmaOrdered By: Perri Ceja on 11-06-2023 Calcium [Mass/Vol] 10.3 mg/dL Normal 8.6-10.3 [facility] Comment on above: Performed By: #### C BC, CMP, CK, CRP, ESR ####[address]#### [place] ####[facility] , Carbon dioxide, total [Moles /volume] in Serum or PlasmaOrdered By: Perri Ceja on 11-06-2023 CO2 [Moles/Vol] 26.1 mmol/L Normal 21.0-31.0 [facility] Comment on above: Performed By: #### C BC, CMP, CK, CRP, ESR ####[place] [address] [place]#### PAPITO ####[facility] , Chloride [Moles/volume] in S aislinn or PlasmaOrdered By: Perri Ceja on 11-06-2023 Chloride [Moles/Vol] 104 mmol/L Normal 98-107 [facility] Comment on above: Performed By: #### C BC, CMP, CK, CRP, ESR ####[place] [address] [place]#### PAPITO ####[facility] , Complete Blood Count Auto Di ffon 11-06-2023 Mean Corpuscular HGB Conc 33.6 g/dL Normal 32.0-35.0 [facility] Comment on above: Performed By: #### C BC, CMP, CK, CRP, ESR ####[place] [address] [address]#### P[place]ITO ####[facility] , NRBC% 0.1 /100{WBC} Normal 0-0.5 [facility] Comment on above: Performed By: #### C BC, CMP, CK, CRP, ESR ####[place] [address] [place]#### PAPITO ####[facility] , Comprehensive Metabolic Pane jonathan 11-06-2023 Albumin [Mass/Vol] 4.7 g/dL Normal 3.5-5.7 [facility] Comment on above: Performed By: #### C BC, CMP, CK, CRP, ESR ####[address]#### [place] ####[facility] , GFR/1.73 sq M.predicted MDRD (S/P/Bld) [Vol rate/Area] 57.919 mL/min/{1.73_m2} Normal [facility] Comment on above: Performed By: #### C BC, CMP, CK, CRP, ESR ####[place] [address] [place]#### PAPITO ####[facility] , Creatine kinase [Enzymatic a ctivity/volume] in Serum or PlasmaOrdered By: Perri Ceja on 11-06-2023 CK [Catalytic activity/Vol] 30 U/L Normal 30-223 [facility] Comment on above: Result Comment: PERF ORMED BY: [facility] [address] [address] PATHOLOGIST SERVICE TECH/WELDER ANAHY MCKEE M.D. Performed By: #### C BC, CMP, CK, CRP, ESR ####[place] [address] [address]#### [place]O ####[facility] , Creatinine [Mass/volume] in Serum or PlasmaOrdered By: Perri Ceja on 11-06-2023 Creatinine [Mass/Vol] 1.17 mg/dL Normal 0.60-1.20 [facility] Comment on above: Performed By: #### C BC, CMP, CK, CRP, ESR ####[address]#### [place] ####[facility] , Erythrocyte Sedimentation Ra mathieu 11-06-2023 ESR (Bld) [Velocity] 49 mm/h High 0-19 [facility] Comment on above: Result Comment: PERF ORMED BY: [facility] [address] [place] [address] PATHOLOGIST SERVICE TECH/WELDER ANAHY MCKEE M.D. Performed By: #### C BC, CMP, CK, CRP, ESR ####[address]#### [place] ####[facility] , Erythrocyte distribution wid th [Ratio] by Automated countOrdered By: Perri Ceja on 11-06-2023 Erythrocyte distribution width (RBC) [Ratio] 15.3 % Normal 11.9-15.3 [facility] Comment on above: Performed By: #### C BC, CMP, CK, CRP, ESR ####[place] [address] [place]#### PAPITO ####[facility] , Erythrocyte sedimentation ra te by Photometric methodOrdered By: Perri Ceja on 11-06-2023 ESR Photometric method (Bld) [Velocity] 49 mm/hr 0-19 [facility] Erythrocytes [#/volume] in B lood by Automated countOrdered By: Perri Ceja on 11-06-2023 RBC (Bld) [#/Vol] 4.60 10*6/uL Normal 3.60-5.00 [facility] Comment on above: Performed By: #### C BC, CMP, CK, CRP, ESR ####[address]#### [place] ####[facility] , Glucose [Mass/volume] in Ser um or PlasmaOrdered By: Perri Ceja on 11-06-2023 Glucose [Mass/Vol] 91 mg/dL Normal 70-100 [facility] Comment on above: ADA recommended refe rence rangeRandom Glucose Reference Range is dependent on time and content of last meal. Glucose of more than 200 mg/dL in a nonstressed, ambulatory subject supports the diagnosis of Diabetes Mellitus. Result Comment: Nenzel om Glucose Reference Range is dependent on time and content of last meal. Glucose of more than 200 mg/dL in a nonstressed, ambulatory subject supports the diagnosis of Diabetes Mellitus. ADA recommended reference range Performed By: #### C BC, CMP, CK, CRP, ESR ####[address]#### [place] ####[facility] , Hematocrit [Volume Fraction] of Blood by Automated countOrdered By: Perri Ceja on 11-06-2023 Hematocrit (Bld) [Volume fraction] 38.9 % Normal 34.0-46.4 [facility] Comment on above: Performed By: #### C BC, CMP, CK, CRP, ESR ####[place] [address] [place]#### PAPITO ####[facility] , Hemoglobin [Mass/volume] in BloodOrdered By: Perri Ceja on 11-06-2023 Hemoglobin (Bld) [Mass/Vol] 13.1 g/dL Normal 11.8-15.4 [facility] Comment on above: Performed By: #### C BC, CMP, CK, CRP, ESR ####[place] [address] [place]#### PAPITO ####[facility] , Leukocytes [#/volume] correc noah for nucleated erythrocytes in Blood by Automated counOrdered By: Perri Ceja on 11-06-2023 WBC corrected for nucl RBC Auto (Bld) [#/Vol] 8.8 10*3/uL 3.8-11.6 [facility] [facility] Leukocytes [#/volume] in Blo od by Automated countOrdered By: Perri Ceja on 11-06-2023 WBC (Bld) [#/Vol] 8.8 10*3/uL Normal 3.8-11.6 [facility] Comment on above: Performed By: #### C BC, CMP, CK, CRP, ESR ####[facility] Jwh[address]#### [place] ####[facility] , Lymphocytes [#/volume] in Bl ood by Automated countOrdered By: Perri Ceja on 11-06-2023 Lymphocytes (Bld) [#/Vol] 1.5 10*3/uL Normal 1.00-4.8 [facility] Comment on above: Performed By: #### C BC, CMP, CK, CRP, ESR ####[facility] Yxb[address]#### [place] ####[facility] , Lymphocytes/100 leukocytes i n Blood by Automated countOrdered By: Perri Ceja on 11-06-2023 Lymphocytes/100 WBC (Bld) 17.6 % Normal . [facility] Comment on above: Performed By: #### C BC, CMP, CK, CRP, ESR ####[facility] [address]cf[address] [place] [address] [place]#### [place] ####[facility] , MCH [Entitic mass] by Automa noah countOrdered By: Perri Ceja on 11-06-2023 MCH (RBC) [Entitic mass] 28.4 pg Normal 24.7-34.3 [facility] Comment on above: Performed By: #### C BC, CMP, CK, CRP, ESR ####[facility]#### [place] ####[facility] , MCHC Auto (RBC) [Mass/Vol]Or dered By: Perri Ceja on 11-06-2023 MCHC (RBC) [Mass/Vol] 33.6 g/dL 32.0-35.0 [facility] MCV [Entitic volume] by Auto mated countOrdered By: Perri Ceja on 11-06-2023 MCV (RBC) [Entitic vol] 84.6 fL Normal 80-100 [facility] Comment on above: Performed By: #### C BC, CMP, CK, CRP, ESR ####[place] [address] [address]#### [place] ####[facility] , Neutrophils [#/volume] in Bl ood by Automated countOrdered By: Perri Ceja on 11-06-2023 Neutrophils (Bld) [#/Vol] 6.3 10*3/uL Normal 1.8-7.7 [facility] Comment on above: Performed By: #### C BC, CMP, CK, CRP, ESR ####[place] [address]#### [place] ####[facility] , No Panel InformationOrdered By: Perri Ceja on 11-06-2023 Estimated GFR (CKD-EPI) 57.919 mL/Min [facility] Creatinine Clearance (Chem N/A [facility] Nucleated erythrocytes [Pres ence] in Blood by Automated countOrdered By: Perri Ceja on 11-06-2023 Nucleated RBC Auto Ql (Bld) 0.1 /100{WBC} 0-0.5 [facility] Platelet mean volume [Entiti c volume] in Blood by Automated countOrdered By: Perri Ceja on 11-06-2023 Platelet mean volume (Bld) [Entitic vol] 6.9 fL Normal 6.3-10.7 [facility] Comment on above: Performed By: #### C BC, CMP, CK, CRP, ESR ####[place] [address] [place]#### [place] ####[facility] , Platelets [#/volume] in Bloo d by Automated countOrdered By: Perri Ceja on 11-06-2023 Platelets (Bld) [#/Vol] 393 10*3/uL Normal 150-450 [facility] Comment on above: Performed By: #### C BC, CMP, CK, CRP, ESR ####[address]#### [place] ####[facility] , Potassium [Moles/volume] in Serum or PlasmaOrdered By: Perri Ceja on 11-06-2023 Potassium [Moles/Vol] 3.8 mmol/L Normal 3.5-5.1 [facility] Comment on above: Performed By: #### C BC, CMP, CK, CRP, ESR ####[address]#### [place] ####[facility] , Protein [Mass/volume] in Ser um or PlasmaOrdered By: Perri Ceja on 11-06-2023 Protein [Mass/Vol] 7.7 g/dL Normal 6.4-8.9 [facility] Comment on above: Performed By: #### C BC, CMP, CK, CRP, ESR ####[place] [address] [place]#### [place] ####[facility] , Serum globulin measurement b y calculation (mass/volume)Ordered By: Perri Ceja on 11-06-2023 Globulin (S) [Mass/Vol] 3.0 g/dL Normal [facility] Comment on above: Performed By: #### C BC, CMP, CK, CRP, ESR ####[place] [address] [place]#### [place] ####[facility] , Serum or plasma albumin/glob ulin mass ratioOrdered By: Perri Ceja on 11-06-2023 Albumin/Globulin [Mass ratio] 1.6 {ratio} Normal [facility] Comment on above: Performed By: #### C BC, CMP, CK, CRP, ESR ####[place] [address] [address]#### [place] ####[facility] , Serum or plasma anion gap de terminationOrdered By: Perri Ceja on 11-06-2023 Anion gap [Moles/Vol] 12.7 mmol/L Normal 6.0-15.0 [facility] Comment on above: Performed By: #### C BC, CMP, CK, CRP, ESR ####[address]#### [place] ####[facility] , Sodium [Moles/volume] in Ser um or PlasmaOrdered By: Perri Ceja on 11-06-2023 Sodium [Moles/Vol] 139 mmol/L Normal 136-145 [facility] Comment on above: Performed By: #### C BC, CMP, CK, CRP, ESR ####[place] [address] [place]#### [place] ####[facility] , Urea nitrogen [Mass/volume] in Serum or PlasmaOrdered By: Perri Ceja on 11-06-2023 Urea nitrogen [Mass/Vol] 17 mg/dL Normal 7-25 [facility] Comment on above: Performed By: #### C BC, CMP, CK, CRP, ESR ####[place] [address] [place] [address] [place]#### [place] ####[facility] , PTH INTACTon 07-30-2022 PTH, Intact 107 pg/mL Critically high 15-65 [facility] Comment on above: Performed By: #### M G, URIC, RENAL #### [facility] [address] [address] [address] Hari MONTANEZon 07-29-2022 Ferritin [Mass/Vol] 194.0 ng/mL Critically high 6.2-137.0 [facility] Comment on above: Performed By: #### M G, URIC, RENAL #### [facility] [address] [place] [address] Dr. Hari Palmer HEMOGRAM AND PLATELon 2021 Hematocrit (Bld) [Volume fraction] 32.8 % Critically low 36.0-48.0 [facility] Comment on above: Performed By: #### M G, URIC, RENAL #### [facility] [address] [place] [address] Dr. Hari Palmer Hemoglobin (Bld) [Mass/Vol] 10.8 g/dL Critically low 12.0-16.0 [facility] Comment on above: Performed By: #### M G, URIC, RENAL #### [facility] [address] [place] [address] Dr. Hari Palmer MCH (RBC) [Entitic mass] 31.7 pg Normal 26.7-34.0 [facility] Comment on above: Performed By: #### M G, URIC, RENAL #### [facility] [address] [place] [address] Dr. Hari Palmer MCHC (RBC) [Mass/Vol] 32.9 g/dL Normal 29.9-35.2 [facility] Comment on above: Performed By: #### M G, URIC, RENAL #### [facility] [address] [place] [address] Dr. Hari Palmer MCV (RBC) [Entitic vol] 96.2 fL Normal 81.0-99.0 [facility] Comment on above: Performed By: #### M G, URIC, RENAL #### [facility] [address] [place] [address] Dr. Hari Palmer PLT 297 103/ul Normal 150-450 [facility] Comment on above: Performed By: #### M G, URIC, RENAL #### [facility] [address] [place] [address] Dr. Hari Palmer RBC 3.41 106/ul Critically low 4.20-5.40 [facility] Comment on above: Performed By: #### M Edy, URIC, RENAL #### [facility] [address] [place] [address] Dr. Hari Palmer WBC 7.1 103/ul Normal 4.0-11.0 [facility] Comment on above: Performed By: #### M Edy, URIC, RENAL #### [facility] [address] [place] [address] Dr. Hari Palmer IRON AND TIBCon 07-29-2022 % SATURATION 19.0 % Normal [facility] Comment on above: Performed By: #### M Edy, URIC, RENAL #### [facility] [address] [place] [address] Dr. Hari Palmer Iron [Mass/Vol] 48.0 ug/dL Critically low 50.0-170.0 [facility] Comment on above: Performed By: #### M Edy, URIC, RENAL #### [facility] [address] [place] [address] Dr. Hari Palmer TIBC DIRECT 252.0 ug/dL Normal 250.0-450.0 [facility] Comment on above: Performed By: #### M Edy, URIC, RENAL #### [facility] [address] [place] [address] Dr. Hari Palmer MAGNESIUMon 07-29-2022 Magnesium [Mass/Vol] 2.0 mg/dL Normal 1.8-2.4 [facility] Comment on above: Performed By: #### M G, URIC, RENAL #### [facility] [address] [place] [address] Dr. Hari Palmer RENAL FUNCTION PANELon 07-29 Albumin [Mass/Vol] 3.6 g/dL Normal 3.4-5.0 [facility] Comment on above: Performed By: #### M G, URIC, RENAL #### [facility] [address] [place] [address] Dr. Hari Palmer Calcium [Mass/Vol] 8.7 mg/dL Normal 8.5-10.1 [facility] Comment on above: Performed By: #### M G, URIC, RENAL #### [facility] [address] [place] [address] Dr. Hrai Palmer Chloride [Moles/Vol] 104 mmol/L Normal 98-107 [facility] Comment on above: Performed By: #### M G, URIC, RENAL #### [facility] [address] [place] [address] Dr. Hari Palmer CO2 [Moles/Vol] 21.8 mmol/L Normal 21.0-32.0 [facility] Comment on above: Performed By: #### M G, URIC, RENAL #### [facility] [address] [place] [address] Dr. Hari Palmer Creatinine [Mass/Vol] 3.83 mg/dL Critically high 0.55-1.02 [facility] Comment on above: Performed By: #### M G, URIC, RENAL #### [facility] [address] [place] [address] Dr. Hari Palmer EGFR-AF TURKISH 15 mL/min/1.73m2 Critically low >=60 [facility] Comment on above: Performed By: #### M G, URIC, RENAL #### [facility] [address] [place] [address] Dr. Hari Palmer EGFR-NON AF TURKISH 13 mL/min/1.73m2 Critically low >=60 [facility] Comment on above: Performed By: #### M G, URIC, RENAL #### [facility] [address] [place] [address] Dr. Hari Palmer Glucose [Mass/Vol] 108 mg/dL Critically high 74-106 [facility] Comment on above: Performed By: #### M G, URIC, RENAL #### [facility] [address] [place] [address] Dr. Hari Palmer Phosphate [Mass/Vol] 5.4 mg/dL Critically high 2.6-4.7 [facility] Comment on above: Performed By: #### M G, URIC, RENAL #### [facility] [address] [place] [address] Dr. Hari Palmer Potassium [Moles/Vol] 3.9 mmol/L Normal 3.5-5.1 [facility] Comment on above: Performed By: #### M G, URIC, RENAL #### [facility] [address] [place] [address] Dr. Hari Palmer Sodium [Moles/Vol] 137 mmol/L Normal 136-145 [facility] Comment on above: Performed By: #### M G, URIC, RENAL #### [facility] [address] [address] [address] Hari Palmer Urea nitrogen [Mass/Vol] 47.0 mg/dL Critically high 7.0-18.0 [facility] Comment on above: Performed By: #### M Edy, URIC, RENAL #### [facility] [address] [place] [address] Dr. Hari Palmer URIC ACID SERUMon 07-29-2022 Urate [Mass/Vol] 6.3 mg/dL Critically high 2.6-6.0 [facility] Comment on above: Performed By: #### M Edy, URIC, RENAL #### [facility] [address] [place] [address] Dr. Hari Palmer URINE T PROTEIN CREAT RATIOo n 07-29-2022 Protein (U) [Mass/Vol] 29.7 mg/dL Critically high <=12.0 [facility] Comment on above: Performed By: #### M Edy, URIC, RENAL #### [facility] [address] [place] [address] Dr. Hari Palmer UR PROT CREAT RAT 0.56 Normal [facility] Comment on above: Performed By: #### M G, URIC, RENAL #### [facility] [address] [place] [address] Dr. Hari Palmer URINE CREAT 53.35 mg/dL Normal 20.00-300.00 [facility] Comment on above: Performed By: #### M G, URIC, RENAL #### [facility] [address] [place] [address] Dr. Hari Palmer VITAMIN D 25 OHon 07-29-2022 VIT D 25-OH 38.8 ng/mL Normal [facility] Comment on above: Performed By: #### M G, URIC, RENAL #### [facility] [address] [place], [place] [address] Dr. Hari Palmer VIT D RANGES SEE BELOW Normal [facility] Comment on above: Result Comment: <20 ng/mL Vit D deficient 20 - <30 ng/mL Vit D insufficient 30 - 100 ng/mL Vit D sufficient >100 ng/mL Potential Toxicity Performed By: #### M G, URIC, RENAL #### [facility] [address] [place], [place] [address] Dr. Hari Palmer Albumin [Mass/volume] in Ser um or PlasmaOrdered By: Stanley Forman on 06-20-2022 Albumin [Mass/Vol] 3.9 g/dL 3.2-5.5 [facility] Basophils Auto (Bld) [#/Vol] Ordered By: Stanley Forman on 06-20-2022 Basophils (Bld) [#/Vol] 0.1 10*3/uL 0.0-0.2 [facility] Basophils/100 WBC Auto (Bld) Ordered By: Stanley Forman on 06-20-2022 Basophils/100 WBC (Bld) 0.7 % . [facility] Blood hemoglobin measurement (mass/volume)Ordered By: Stanley Forman on 06-20-2022 Hemoglobin (Bld) [Mass/Vol] 10.8 g/dL 11.8-15.4 [facility] Blood leukocytes automated c ount (number/volume)Ordered By: Stanley Forman on 06-20-2022 WBC (Bld) [#/Vol] 11.8 10*3/uL 4.5-11.0 [facility] C reactive protein [Mass/vol ume] in Serum or PlasmaOrdered By: Stanley Forman on 06-20-2022 CRP [Mass/Vol] 5.2 mg/dL 0.0-1.0 [facility] Creatinine and Glomerular fi ltration rate.predicted panel (S/P/Bld)Ordered By: Stanley Forman on 06-20-2022 Creatinine [Mass/Vol] 4.49 mg/dL 0.44-1.03 [facility] Eosinophils Auto (Bld) [#/Vo l]Ordered By: Stanley Forman on 06-20-2022 Eosinophils (Bld) [#/Vol] 0.4 10*3/uL 0.0-0.45 [facility] Eosinophils/100 WBC Auto (Bl d)Ordered By: Stanley Forman on 06-20-2022 Eosinophils/100 WBC (Bld) 3.2 % . [facility] Erythrocyte distribution wid th Auto (RBC) [Ratio]Ordered By: Stanley Forman on 06-20-2022 Erythrocyte distribution width (RBC) [Ratio] 14.0 % 11.9-15.3 [facility] Erythrocyte sedimentation ra te by Photometric methodOrdered By: Stanley Forman on 06-20-2022 ESR Photometric method (d) [Velocity] 67 mm/hr 0-19 [facility] Estimated glomerular filtrat ion rate (GFR) non- AmericanOrdered By: Stanley Forman on 06-20-2022 GFR/1.73 sq M.predicted among non-blacks MDRD (S/P/Bld) [Vol rate/Area] 11 mL/Min [facility] Globulin Calc (S) [Mass/Vol] Ordered By: Stanley Forman on 06-20-2022 Globulin (S) [Mass/Vol] 3.5 g/dL [facility] Hematocrit Auto (Bld) [Volum e fraction]Ordered By: Stanley Forman on 06-20-2022 Hematocrit (Bld) [Volume fraction] 33.1 % 34.0-46.4 [facility] - Hematology and Cell countsOrdered By: Stanley Forman on 06-20-2022 Nucleated RBC/100 WBC (Bld) [Ratio] 0.0 % 0-0.5 [facility] Lymphocytes Auto (Bld) [#/Vo l]Ordered By: Stanley Forman on 06-20-2022 Lymphocytes (Bld) [#/Vol] 1.5 10*3/uL 1.00-4.8 [facility] Lymphocytes/100 WBC Auto (Bl d)Ordered By: Stanley Forman on 06-20-2022 Lymphocytes/100 WBC (Bld) 12.3 % . [facility] MCH Auto (RBC) [Entitic mass ]Ordered By: Stanley Forman on 06-20-2022 MCH (RBC) [Entitic mass] 31.1 pg 24.7-34.3 [facility] MCHC Auto (RBC) [Mass/Vol]Or dered By: Stanley Forman on 06-20-2022 MCHC (RBC) [Mass/Vol] 32.5 g/dL 32.0-35.0 [facility] MCV Auto (RBC) [Entitic vol] Ordered By: Stanley Forman on 06-20-2022 MCV (RBC) [Entitic vol] 95.6 fL 80-100 [facility] Monocytes Auto (Bld) [#/Vol] Ordered By: Stanley Forman on 06-20-2022 Monocytes (Bld) [#/Vol] 0.5 10*3/uL 0.0-0.8 [facility] Monocytes/100 WBC Auto (Bld) Ordered By: Stanley Forman on 06-20-2022 Monocytes/100 WBC (Bld) 4.1 % . [facility] Neutrophils Auto (Bld) [#/Vo l]Ordered By: Stanley Forman on 06-20-2022 Neutrophils (Bld) [#/Vol] 9.4 10*3/uL 1.8-7.7 [facility] Neutrophils/100 WBC Auto (Bl d)Ordered By: Stanley Forman on 06-20-2022 Neutrophils/100 WBC (Bld) 79.7 % . [facility] No Panel InformationOrdered By: Stanley Forman on 06-20-2022 Estimated GFR () 13 mL/Min [facility] Comment on above: GFR estimated refere nce range: According to KDOQI guidelines, <60 ml/min/1.73m2 is sufficient to diagnose a patient with chronic kidney disease. Pharmacy Creatinine Clearance (Chem 16.48 [facility] Platelet mean volume Auto (B ld) [Entitic vol]Ordered By: Stanley Forman on 06-20-2022 Platelet mean volume (Bld) [Entitic vol] 7.0 fL 6.3-10.7 [facility] Platelets Auto (Bld) [#/Vol] Ordered By: Stanley Forman on 06-20-2022 Platelets (Bld) [#/Vol] 287 10*3/uL 150-450 [facility] Protein [Mass/volume] in Ser um or PlasmaOrdered By: Stanley Forman on 06-20-2022 Protein [Mass/Vol] 7.4 g/dL 6.1-7.9 [facility] RBC Auto (Bld) [#/Vol]Ordere d By: Stanley Forman on 06-20-2022 RBC (Bld) [#/Vol] 3.46 10*6/uL 3.60-5.00 [facility] Serum or plasma alanine cesar otransferase measurement without P-5'-P (enzymatic activiOrdered By: Stanley Forman on 06-20-2022 ALT No additional P-5'-P [Catalytic activity/Vol] 11 U/L 10-60 [facility] Serum or plasma albumin/glob ulin mass ratioOrdered By: Stanley Forman on 06-20-2022 Albumin/Globulin [Mass ratio] 1.1 {ratio} [facility] Serum or plasma alkaline gina sphatase measurement (enzymatic activity/volume)Ordered By: Stanley Forman on 06-20-2022 ALP [Catalytic activity/Vol] 82 U/L 32-92 [facility] Serum or plasma anion gap de terminationOrdered By: Stanley Forman on 06-20-2022 Anion gap [Moles/Vol] 16.2 mmol/L 6.0-15.0 [facility] Serum or plasma aspartate am inotransferase measurement (enzymatic activity/volume)Ordered By: Stanley Forman 06-20-2022 AST [Catalytic activity/Vol] 15 U/L 10-42 [facility] Serum or plasma calcium ge urement (mass/volume)Ordered By: Stanley Forman on 06-20-2022 Calcium [Mass/Vol] 9.3 mg/dL 8.2-10.2 [facility] Serum or plasma chloride lee surement (moles/volume)Ordered By: Stanley Forman on 06-20-2022 Chloride [Moles/Vol] 103 mmol/L 95-114 [facility] Serum or plasma glucose ge urement [...] on 06-20-2022 Potassium [Moles/Vol] 4.3 mmol/L 3.5-5.1 [facility] Serum or plasma sodium measu rement (moles/volume)Ordered By: Stanley Forman on 06-20-2022 Sodium [Moles/Vol] 135 mmol/L 136-146 [facility] Serum or plasma total biliru bin measurement (mass/volume)Ordered By: Stanley Forman on 06-20-2022 Bilirubin [Mass/Vol] 0.3 mg/dL 0.3-1.2 [facility] Serum or plasma total carbon dioxide measurement (moles/volume)Ordered By: Stanley Forman on 06-20-2022 CO2 [Moles/Vol] 20.1 mmol/L 22.0-30.0 [facility] Serum or plasma urea nitroge n measurement (mass/volume)Ordered By: Stanley Forman on 06-20-2022 Urea nitrogen [Mass/Vol] 42 mg/dL 9-23 [facility] COVID-19 Positive/NegativeOr dered By: Jesus Parham on 06-14-2022 SARS-CoV-2 (COVID-19) N gene AMBERLY+probe Ql (Resp) Negative Negative [facility] Comment on above: Testing for SARS-CoV -2 by RT-PCR This test was developed and its performance characteristics determined by [employer] ([employer]) and validated at the [facility]. This test has not been FDA [...] and its performance characteristics determined by [employer] ([employer]) and validated at the [facility]. This test has not been FDA [...] Antigen (CA) 125 10.8 U/mL Normal 0.0-38.1 [facility] Comment on above: Result Comment: [employer] Electrochemiluminescence Immunoassay (ECLIA) . Values obtained with different assay methods or kits cannot be used interchangeably. Results cannot be interpreted as absolute evidence of the presence or absence of malignant disease. Performed By: #### M G, URIC, RENAL #### [facility] [address] [place] [address] Dr. Hari Palmer CEAon 06-08-2022 CEA 0.9 ng/mL Normal 0.0-4.7 [facility] Comment on above: Result Comment: Nons mokers <3.9 Smokers <5.6 . [employer] Electrochemiluminescence Immunoassay (ECLIA) . Values obtained with different assay methods or kits cannot be used interchangeably. Results cannot be interpreted as absolute evidence of the presence or absence of malignant disease. Performed By: #### C EA. #### [facility] [address] [address] [address] Hari Palmer Basophils Auto (Bld) [#/Vol] Ordered By: Jesus Parham on 06-05-2022 Basophils (Bld) [#/Vol] 0.0 10*3/uL 0.0-0.2 [facility] Basophils/100 WBC Auto (Bld) Ordered By: Jesus Parham on 06-05-2022 Basophils/100 WBC (Bld) 0.3 % . [facility] Blood hemoglobin measurement (mass/volume)Ordered By: Jesus Parham on 06-05-2022 Hemoglobin (Bld) [Mass/Vol] 12.0 g/dL 11.8-15.4 [facility] Blood leukocytes automated c ount (number/volume)Ordered By: Jesus Parham on 06-05-2022 WBC (Bld) [#/Vol] 8.5 10*3/uL 4.5-11.0 [facility] Creatinine and Glomerular fi ltration rate.predicted panel (S/P/Bld)Ordered By: Jesus Parham on 06-05-2022 Creatinine [Mass/Vol] 3.52 mg/dL 0.44-1.03 [facility] Eosinophils Auto (Bld) [#/Vo l]Ordered By: Jesus Parham on 06-05-2022 Eosinophils (Bld) [#/Vol] 0.2 10*3/uL 0.0-0.45 [facility] Eosinophils/100 WBC Auto (Bl d)Ordered By: Jesus Parham on 06-05-2022 Eosinophils/100 WBC (Bld) 2.7 % . [facility] Erythrocyte distribution wid th Auto (RBC) [Ratio]Ordered By: Jesus Parham on 06-05-2022 Erythrocyte distribution width (RBC) [Ratio] 14.2 % 11.9-15.3 [facility] Estimated glomerular filtrat ion rate (GFR) non- AmericanOrdered By: Jesus Parham on 06-05-2022 GFR/1.73 sq M.predicted among non-blacks MDRD (S/P/Bld) [Vol rate/Area] 14 mL/Min [facility] Hematocrit Auto (Bld) [Volum e fraction]Ordered By: Jesus Parham on 06-05-2022 Hematocrit (Bld) [Volume fraction] 35.8 % 34.0-46.4 [facility] - Hematology and Cell countsOrdered By: Jesus Parham on 06-05-2022 Nucleated RBC/100 WBC (Bld) [Ratio] 0.1 % 0-0.5 [facility] Lymphocytes Auto (Bld) [#/Vo l]Ordered By: Jesus Parham on 06-05-2022 Lymphocytes (Bld) [#/Vol] 1.6 10*3/uL 1.00-4.8 [facility] Lymphocytes/100 WBC Auto (Bl d)Ordered By: Jesus Parham on 06-05-2022 Lymphocytes/100 WBC (Bld) 19.3 % . [facility] MCH Auto (RBC) [Entitic mass ]Ordered By: Jesus Parham on 06-05-2022 MCH (RBC) [Entitic mass] 31.5 pg 24.7-34.3 [facility] MCHC Auto (RBC) [Mass/Vol]Or dered By: Jesus Parham on 06-05-2022 MCHC (RBC) [Mass/Vol] 33.3 g/dL 32.0-35.0 [facility] MCV Auto (RBC) [Entitic vol] Ordered By: Jesus Parham on 06-05-2022 MCV (RBC) [Entitic vol] 94.4 fL 80-100 [facility] Monocytes Auto (Bld) [#/Vol] Ordered By: Jesus Parham on 06-05-2022 Monocytes (Bld) [#/Vol] 0.3 10*3/uL 0.0-0.8 [facility] Monocytes/100 WBC Auto (Bld) Ordered By: Jesus Parham on 06-05-2022 Monocytes/100 WBC (Bld) 3.9 % . [facility] Neutrophils Auto (Bld) [#/Vo l]Ordered By: Jesus Parham on 06-05-2022 Neutrophils (Bld) [#/Vol] 6.2 10*3/uL 1.8-7.7 [facility] Neutrophils/100 WBC Auto (Bl d)Ordered By: Jesus Parham on 06-05-2022 Neutrophils/100 WBC (Bld) 73.8 % . [facility] No Panel InformationOrdered By: Jesus Parham on 06-05-2022 Estimated GFR () 17 mL/Min [facility] Comment on above: GFR estimated refere nce range: According to KDOQI guidelines, <60 ml/min/1.73m2 is sufficient to diagnose a patient with chronic kidney disease. Pharmacy Creatinine Clearance (Chem N/A [facility] Platelet mean volume Auto (B ld) [Entitic vol]Ordered By: Jesus Parham on 06-05-2022 Platelet mean volume (Bld) [Entitic vol] 7.3 fL 6.3-10.7 [facility] Platelets Auto (Bld) [#/Vol] Ordered By: Jesus Parham on 06-05-2022 Platelets (Bld) [#/Vol] 312 10*3/uL 150-450 [facility] RBC Auto (Bld) [#/Vol]Ordere d By: Jesus Parham on 06-05-2022 RBC (Bld) [#/Vol] 3.80 10*6/uL 3.60-5.00 [facility] Serum or plasma anion gap de terminationOrdered By: Jesus Parham on 06-05-2022 Anion gap [Moles/Vol] 15.1 mmol/L 6.0-15.0 [facility] Serum or plasma calcium ge urement (mass/volume)Ordered By: Jesus Parham on 06-05-2022 Calcium [Mass/Vol] 9.5 mg/dL 8.2-10.2 [facility] Serum or plasma chloride lee surement (moles/volume)Ordered By: Jesus Parham on 06-05-2022 Chloride [Moles/Vol] 106 mmol/L 95-114 [facility] Serum or plasma glucose ge urement [...] on 06-05-2022 Potassium [Moles/Vol] 4.4 mmol/L 3.5-5.1 [facility] Serum or plasma sodium measu rement (moles/volume)Ordered By: Jesus Parham on 06-05-2022 Sodium [Moles/Vol] 137 mmol/L 136-146 [facility] Serum or plasma total carbon dioxide measurement (moles/volume)Ordered By: Jesus Parham on 06-05-2022 CO2 [Moles/Vol] 20.3 mmol/L 22.0-30.0 [facility] Serum or plasma urea nitroge n measurement (mass/volume)Ordered By: Jesus Parham on 06-05-2022 Urea nitrogen [Mass/Vol] 38 mg/dL 9-23 [facility] PTH INTACTon 04-29-2022 PTH, Intact 191 pg/mL Critically high 15-65 [facility] Comment on above: Performed By: #### M G, URIC, RENAL #### [facility] [address] [address] [address] Hari Palmer VIT D 25-OH [facility]on 2021 Vitamin D, 25-Hydroxy 33.6 ng/mL Normal 30.0-100.0 [facility] Comment on above: Result Comment: Ning min D deficiency has been defined by the [place] of Medicine and an Endocrine Society practice guideline as a level of serum 25-OH vitamin D less than 20 ng/mL (1,2). The Endocrine Society went on to further define vitamin D insufficiency as a level between 21 and 29 ng/mL (2). 1. IOM ([place] of Medicine). 2010. Dietary reference intakes for calcium and D. [place]: The National Academies Press. 2. Chantel MF, Landen [place], Eliseo STEPHENS, et al. Evaluation, treatment, and prevention of vitamin D deficiency: an Endocrine Society clinical practice guideline. JCEM. 2010; 96(7):1911-30. Performed By: #### M G, URIC, RENAL #### [facility] [address] [place] [address] Dr. Hari Palmer ABO AND RH TYPEon 04-27-2022 ABO and Rh group Nom (Bld) ABO Rh Typing O Rh Positive Normal [facility] Comment on above: Performed By: #### M G, URIC, RENAL #### [facility] [address] [address] [address] Hari Palmer FERRITINon 04-27-2022 Ferritin [Mass/Vol] 273.0 ng/mL Critically high 6.2-137.0 [facility] Comment on above: Performed By: #### M Edy URIC, RENAL #### [facility] [address] [place] [address] Dr. Hari Palmre HEMOGRAM AND PLATELon 2021 Hematocrit (Bld) [Volume fraction] 33.9 % Critically low 36.0-48.0 [facility] Comment on above: Performed By: #### M Edy, URIC, RENAL #### [facility] [address] [place] [address] Dr. Hari Palmer Hemoglobin (Bld) [Mass/Vol] 11.4 g/dL Critically low 12.0-16.0 [facility] Comment on above: Performed By: #### M G, URIC, RENAL #### [facility] [address] [place] [address] Dr. Hari Palmer MCH (RBC) [Entitic mass] 31.7 pg Normal 26.7-34.0 [facility] Comment on above: Performed By: #### M G, URIC, RENAL #### [facility] [address] [place] [address] Dr. Hari Palmer MCHC (RBC) [Mass/Vol] 33.6 g/dL Normal 29.9-35.2 [facility] Comment on above: Performed By: #### M G, URIC, RENAL #### [facility] [address] [place], [place] [address] Dr. Hari Palmer MCV (RBC) [Entitic vol] 94.2 fL Normal 81.0-99.0 [facility] Comment on above: Performed By: #### M G, URIC, RENAL #### [facility] [address] [address] [address] Hari Palmer PLT 333 103/ul Normal 150-450 [facility] Comment on above: Performed By: #### M G, URIC, RENAL #### [facility] [address] [address] [address] Hari Palmer RBC 3.60 106/ul Critically low 4.20-5.40 [facility] Comment on above: Performed By: #### M G, URIC, RENAL #### [facility] [address] [address] [address] Hari Palmer WBC 9.7 103/ul Normal 4.0-11.0 [facility] Comment on above: Performed By: #### M G, URIC, RENAL #### [facility] [address] [address] [address] Hari Palmer IRON AND TIBCon 04-27-2022 % SATURATION 20.1 % Normal [facility] Comment on above: Performed By: #### M G, URIC, RENAL #### [facility] [address] [address] [address] Hari Palmer Iron [Mass/Vol] 57.0 ug/dL Normal 50.0-170.0 [facility] Comment on above: Performed By: #### M G, URIC, RENAL #### [facility] [address] [address] [address] Hari Pamler TIBC DIRECT 283.0 ug/dL Normal 250.0-450.0 [facility] Comment on above: Performed By: #### M G, URIC, RENAL #### [facility] [address] [address] [address] Hari Palmer MAGNESIUMon 04-27-2022 Magnesium [Mass/Vol] 2.1 mg/dL Normal 1.8-2.4 [facility] Comment on above: Performed By: #### R ENAL, URIC, MG #### [facility] [address] [place] [address] Dr. Hari Palmer RENAL FUNCTION PANELon 04-27 Albumin [Mass/Vol] 3.6 g/dL Normal 3.4-5.0 [facility] Comment on above: Performed By: #### R ENAL, URIC, MG #### [facility] [address] [place] [address] Dr. Hari Palmer Calcium [Mass/Vol] 9.0 mg/dL Normal 8.5-10.1 [facility] Comment on above: Performed By: #### R ENAL, URIC, MG #### [facility] [address] [place] [address] Dr. Hari Palmer Chloride [Moles/Vol] 104 mmol/L Normal 98-107 [facility] Comment on above: Performed By: #### R ENAL, URIC, MG #### [facility] [address] [place] [address] Dr. Hari Palmer CO2 [Moles/Vol] 23.0 mmol/L Normal 21.0-32.0 [facility] Comment on above: Performed By: #### R ENAL, URIC, MG #### [facility] [address] [place] [address] Dr. Hari Palmer Creatinine [Mass/Vol] 3.38 mg/dL Critically high 0.55-1.02 [facility] Comment on above: Performed By: #### R ENAL, URIC, MG #### [facility] [address] [place] [address] Dr. Hari Palmer EGFR-AF TURKISH 18 mL/min/1.73m2 Critically low >=60 [facility] Comment on above: Performed By: #### R ENAL, URIC, MG #### [facility] [address] [place] [address] Dr. Hari Palmer EGFR-NON AF TURKISH 15 mL/min/1.73m2 Critically low >=60 [facility] Comment on above: Performed By: #### R ENAL, URIC, MG #### [facility] [address] [place] [address] Dr. Hari Palmer Glucose [Mass/Vol] 113 mg/dL Critically high 74-106 [facility] Comment on above: Performed By: #### R ENAL, URIC, MG #### [facility] [address] [place] [address] Dr. Hari Palmer Phosphate [Mass/Vol] 4.4 mg/dL Normal 2.6-4.7 [facility] Comment on above: Performed By: #### R ENAL, URIC, MG #### [facility] [address] [place] [address] Dr. Hari Palmer Potassium [Moles/Vol] 4.0 mmol/L Normal 3.5-5.1 [facility] Comment on above: Performed By: #### R ENAL, URIC, MG #### [facility] [address] [place] [address] Dr. Hari Palmer Sodium [Moles/Vol] 137 mmol/L Normal 136-145 [facility] Comment on above: Performed By: #### R ENAL, URIC, MG #### [facility] [address] [place] [address] Dr. Hari Palmer Urea nitrogen [Mass/Vol] 44.0 mg/dL Critically high 7.0-18.0 [facility] Comment on above: Performed By: #### R ENAL, URIC, MG #### [facility] [address] [place] [address] Dr. Hari Palmer URIC ACID SERUMon 04-27-2022 Urate [Mass/Vol] 6.6 mg/dL Critically high 2.6-6.0 [facility] Comment on above: Performed By: #### R ENAL, URIC, MG #### [facility] [address] [place] [address] Dr. Hari Palmer URINE T PROTEIN CREAT RATIOo n 04-27-2022 Protein (U) [Mass/Vol] 31.4 mg/dL Critically high <=12.0 [facility] Comment on above: Performed By: #### M G, URIC, RENAL #### [facility] [address] [place], [place] [address] Dr. Hari Palmer UR PROT CREAT RAT 0.55 Normal [facility] Comment on above: Performed By: #### M G, URIC, RENAL #### [facility] [address] [place], [place] [address] Dr. Hari Palmer URINE CREAT 57.50 mg/dL Normal 20.00-300.00 [facility] Comment on above: Performed By: #### M G, URIC, RENAL #### [facility] [address] [place], [place] [address] Dr. Hari Palmer ECHOCARDIO M/2D COMPLETEon 0 03-29-2022 ECHOCARDIO M/2D COMPLETE Patient: MANDEEP PURI Exam Date: 03/29/2022 : 1975 Gender:F Ordering : HAIDER FRENCH M.D. Admission #: [id number] Family : Order #: [id number] CLICK HERE TO VIEW EXAM ECHOCARDIOGRAM REPORT [...] Area(A4C): 17.00 cm2 Left Atrium Systolic Volume(A2C): 01375 mm3 Left Atrium Systolic Volume(A4C): 17070 mm3 Mitral Valve MV E to A Ratio: 0.80 Deceleration [place]: 3210 mm/s2 Mitral Valve A-Wave Peak Velocity: [...] M.D. on 04/01/2022 at 12:33 Normal [facility] COVID-19 SOFIAOrdered By: Mary Beth Jones on 03-28-2022 SARS-CoV+SARS-CoV-2 (COVID-19) Ag IA.rapid Ql (Resp) Negative Negative [facility] Comment on above: This is a duplicate Ada SARS Antigen (GLORIA) result to be used for statistical tracking purpose only. No Panel InformationOrdered By: Shabbir Jones on 03-28-2022 SARS Antigen (LFIA) [facility] BLOOD TYPE AND RHon 02-13-20 ABO INTERPRETATION O Normal [facility] Comment on above: Performed By: #### 3 1397, 77956, 47136, 75511, 40472 #### [facility] [address] RH INTERPRETATION Positive Normal [facility] Comment on above: Performed By: #### 3 1397, 76229, 51858, 31316, 75831 #### [facility] [address] BNP (B-TYPE NATRIURETIC PEPT JOEL)on 02-12-2022 Natriuretic peptide B (Bld) [Mass/Vol] 10 pg/mL Normal 0-[address] [facility] Comment on above: Result Comment: Give n the appropriate clinical setting a BNP result of >100 pg/mL indicates congestive heart failure. Performed By: #### 8 5123, 86695 #### [facility] [address] CBC W/DIFFon 02-12-2022 ABS IMM GRANS 0.2 10*3/uL Normal 0.0-0.[address] [facility] Comment on above: Performed By: #### 3 1397, 18669, 88122, 82325, 80981 #### [facility] [address] ABS NEUTROPHILS 7.8 10*3/uL High 1.6-7.[address] [facility] Comment on above: Performed By: #### 3 1397, 07056, 05958, 86507, 99313 #### [facility] [address] Basophils (Bld) [#/Vol] 0.1 10*3/uL Normal 0.0-0.[address] [facility] Comment on above: Performed By: #### 3 1397, 77013, 87931, 03433, 38984 #### [facility] [address] [place] [address], [facility] [[email or web address]] Basophils/100 WBC (Bld) 0.6 % Normal 0.0-1.0 Lbiertad marc[address] [facility] Comment on above: Performed By: #### 3 1397, 94925, 75598, 67443, 71782 #### [facility] [address] [place] [address], [facility] [[email or web address]] Eosinophils (Bld) [#/Vol] 0.3 10*3/uL Normal 0.0-0.[address] [facility] Comment on above: Performed By: #### 3 1397, 39143, 00585, 63488, 42585 #### [facility] [address] [place] [address], [facility] [[email or web address]] Eosinophils/100 WBC (Bld) 2.5 % Normal 0.0-6.[address] [facility] Comment on above: Performed By: #### 3 1397, 20905, 19153, 43565, 36340 #### [facility] [address] [facility] [address], [facility] [[email or web address]] Erythrocyte distribution width (RBC) [Ratio] 13.6 % Normal 11.5-15.[address] [facility] Comment on above: Performed By: #### 3 1397, 88758, 90361, 36658, 61338 #### [facility] [address] [facility] [address], [facility] [[email or web address]] Hematocrit (Bld) [Volume fraction] 34.5 % Low 36.0-45.[address] [facility] Comment on above: Performed By: #### 3 1397, 53088, 21300, 79643, 52553 #### [facility] [address] [place] [address], [facility] [[email or web address]] Hemoglobin (Bld) [Mass/Vol] 11.3 g/dL Low 12.0-15.[address] [facility] Comment on above: Performed By: #### 3 1397, 22869, 67810, 96556, 43089 #### [facility] [address] [place] [address], [facility] [[email or web address]] IMMATURE GRANS 1.4 % High 0.0-1.[address] [facility] Comment on above: Performed By: #### 3 1397, 22443, 50155, 50600, 42175 #### [facility] [address] [place] [address], [facility] [[email or web address]] Lymphocytes (Bld) [#/Vol] 2.0 10*3/uL Normal 1.2-4.[address] [facility] Comment on above: Performed By: #### 3 1397, 50383, 08923, 97967, 61847 #### [facility] [address] Lymphocytes/100 WBC (Bld) 18.6 % Low 20.0-45.[address] [facility] Comment on above: Performed By: #### 3 1397, 52915, 53536, 46769, 01459 #### [facility] [address] [facility] [address] MCH (RBC) [Entitic mass] 31.3 pg Normal 27.0-33.[address] [facility] Comment on above: Performed By: #### 3 1397, 40856, 96992, 35012, 41176 #### [facility] [address] [facility] [place] [address], [facility] [[email or web address]] MCHC (RBC) [Mass/Vol] 32.8 g/dL Normal 32.0-35.[address] [facility] Comment on above: Performed By: #### 3 1397, 27770, 68914, 20021, 97636 #### [facility] [address] [facility] [place] [address], [facility] [[email or web address]] MCV (RBC) [Entitic vol] 95.6 fL Normal 82.0-98.[address] [facility] Comment on above: Performed By: #### 3 1397, 55689, 57322, 32152, 05518 #### [facility] [address] [place] [address], [facility] [[email or web address]] Monocytes (Bld) [#/Vol] 0.5 10*3/uL Normal 0.1-1.[address] [facility] Comment on above: Performed By: #### 3 1397, 64039, 58959, 65602, 62751 #### [facility] [address] [facility] [address], [facility] [[email or web address]] MONOS 4.9 % Low 5.0-12.[address] [facility] Comment on above: Performed By: #### 3 1397, 46377, 22302, 54913, 29861 #### [facility] [address] [facility] [place] [address], [facility] [[email or web address]] Neutrophils/100 WBC (Bld) 72.0 % Normal 40.0-72.[address] [facility] Comment on above: Performed By: #### 3 1397, 47016, 59155, 39334, 82342 #### [facility] [address] [facility] [place] [address], [facility] [[email or web address]] Nucleated RBC/100 WBC (Bld) [Ratio] 0 % Normal 0-[address] [facility] Comment on above: Performed By: #### 3 1397, 41375, 12088, 73187, 35906 #### [facility] [address] [facility] [place] [address], [facility] [[email or web address]] PLAT CNT 315 10*3/uL Normal 150-[address] [facility] Comment on above: Performed By: #### 3 1397, 96434, 41700, 03070, 31583 #### [facility] [address] [facility] [place] [address], [facility] [[email or web address]] RBC (Bld) [#/Vol] 3.61 10*6/uL Low 3.80-5.[address] [facility] Comment on above: Performed By: #### 3 1397, 37192, 74855, 68184, 04435 #### [facility] [address] [facility] [place], [place] [id number] [place] [address] WBC (Bld) [#/Vol] 10.78 10*3/uL High 4.00-10.[address] [facility] Comment on above: Performed By: #### 3 1397, 13055, 27604, 83763, 32242 #### [facility] [address] [facility] [place], [place] [id number] [place] [address] CHEST AND LATERALon 02-13-20 CHEST AND LATERAL [facility] Department of Radiology [address] [place] [address] == Patient Name: MANDEEP PURI [...] pathology. Electronically signed: Royal Dominguez. Transcribed by: [email or web address], User Resident: Electronically Signed by: ROYAL DOMINGUEZ @ 02/13/2022 11:48 AM Normal [facility] CMV IGG BLOODon 02-12-2022 CMV IGG 3.[address] [facility] Comment on above: Result Comment: NORM AL RANGES: < OR = 0.9O NEGATIVE ; NO DETECTABLE IgG ANTIBODY TO CMV 0.91 - 1.09 EQUIVOCAL; REPEAT TESTING SUGGESTED > OR = 1.10 POSITIVE ; INDICATES PRESENCE OF DETECTABLE IgG ANTIBODY TO CMV Performed By: #### 3 1397, 22674, 05508, 65368, 84581 #### [facility] [address] [facility] [address] COMP METABOLIC PANELon 02-12 Albumin [Mass/Vol] 4.5 g/dL Normal 3.5-5.[address] [facility] Comment on above: Performed By: #### 2 2505, 37249, 06797 #### [facility] [address] [place] [address], [facility] [[email or web address]] ALKALINE PHOSPH 89 IU/L Normal 34-[address] [facility] Comment on above: Performed By: #### 2 2505, 02484, 84094 #### [facility] [address] [place] [address], [facility] [[email or web address]] ALT [Catalytic activity/Vol] 12 U/L Normal 7-[address] [facility] Comment on above: Performed By: #### 2 2505, 89600, 66483 #### [facility] [address] [place] [address], [facility] [[email or web address]] AST [Catalytic activity/Vol] 13 U/L Normal 13-[address] [facility] Comment on above: Performed By: #### 2 2505, 28177, 55027 #### [facility] [address] [place] [address], [place] Bilirubin [Mass/Vol] 0.3 mg/dL Normal 0.3-1.[address] [facility] Comment on above: Performed By: #### 2 2505, 43187, 32726 #### [facility] [address] [place] [address], [place] Calcium [Mass/Vol] 9.5 mg/dL Normal 8.6-10.[address] [facility] Comment on above: Performed By: #### 2 2505, , 49865 #### [facility] [address] [place] [address], [place] Chloride [Moles/Vol] 103 mmol/L Normal 98-[address] [facility] Comment on above: Performed By: #### 2 2505, , 25122 #### [facility] [address] [place] [address], [place] CO2 [Moles/Vol] 22 mmol/L Normal 21-[address] [facility] Comment on above: Performed By: #### 2 2505, 11084, 44713 #### [facility] [address] [place] [address], [place] Creatinine [Mass/Vol] 3.51 mg/dL High 0.60-1.[address] [facility] Comment on above: Performed By: #### 2 2505, 58673, 82410 #### [facility] [address] [place] [address], [place] eGFR- 17 ml/min/1.73sq m Abnormal >[address] [facility] Comment on above: Performed By: #### 2 2505, 60760, 71885 #### [facility] [address] [place] [address], [place] eGFR- non- 14 ml/min/1.73sq m Abnormal >[address] [facility] Comment on above: Performed By: #### 2 2505, 13375, 15063 #### [facility] [address] [place] [address], [place] Glucose [Mass/Vol] 100 mg/dL Normal 70-[address] [facility] Comment on above: Performed By: #### 2 2505, 10325, 04525 #### [facility] [address] [place] [address], [place] Potassium [Moles/Vol] 3.9 mmol/L Normal 3.5-5.[address] [facility] Comment on above: Performed By: #### 2 2505, 94910, 85806 #### [facility] [address] [place] [address], [place] Protein [Mass/Vol] 8.0 g/dL Normal 6.0-8.[address] [facility] Comment on above: Performed By: #### 2 2505, 27468, 63434 #### [facility] [address] [place] [address], [place] Sodium [Moles/Vol] 136 mmol/L Normal 136-[address] [facility] Comment on above: Performed By: #### 2 2505, 41842, 09406 #### [facility] [address] [place] [address], [place] Urea nitrogen [Mass/Vol] 41 mg/dL High 7-[address] [facility] Comment on above: Performed By: #### 2 2505, 55003, 89184 #### [facility] [address] [place] [address], [place] CREATININE URINE RANDOMon Creatinine (U) [Mass/Vol] 63.0 mg/dL Normal [facility] Comment on above: Result Comment: Ther e are no established reference values for random urine specimens Performed By: #### 3 1397, 11883, 85746, 07630, 87527 #### [facility] [address] [place] [address], [facility] [[email or web address]] CT RENAL RECIPIENT ABDOMEN A ND PEVLIS WO CONTRASTon 02-12-2022 CT RENAL RECIPIENT ABDOMEN AND PEVLIS WO CONTRAST [facility] Department of Radiology [address] [place] [id number] == Patient Name: MANDEEP PURI : 1975 Sex: F Age: Race: White Pt. Location: 20 Patient Status: O Ordered Date: 02/12/2022 1:55:00 PM Completed Date: 02/12/2022 02:04 PM Requesting Provider: HAIDER FRENCH Attending Provider: HAIDER FRENCH Report Copy To: Signs & Symptoms: Z01.818 Encounter for other preprocedural examination I10 History: [place] Comments: , Pre-kidney transplant work-up. Please evaluate [...] achievable. Electronically signed: NAN SARAVIA. Transcribed by: [email or web address], User Resident: Electronically Signed by: NAN SARAVIA @ 02/12/2022 02:59 PM Normal [facility] Comment on above: Order Comment: , [...] [Mass/Vol] 0.0 mg/dL Normal 0.0-0.[address] [facility] Comment on above: Performed By: #### 2 2505, 82469, 54393 #### [facility] [address] [place], [place] [id number] [place] [address] BRETT LAGUERRE VIRUS ABon 02-03 EB VCA IGG 2.[address] [facility] Comment on above: Order Comment: CONSI STENT WITH PAST EBV INFECTION Result Comment: NORM AL RANGES: < OR = 0.9O NEGATIVE ; NO DETECTABLE IgG ANTIBODY TO EBV-VCA 0.91 - 1.09 EQUIVOCAL; REPEAT TESTING SUGGESTED > OR = 1.10 POSITIVE ; INDICATES PRESENCE OF DETECTABLE IgG ANTIBODY TO EBV Performed By: #### 3 1397, 10231, 99526, 73573, 95038 #### [facility] [address] EB VCA IGM 0.[address] [facility] Comment on above: Order Comment: CONSI STENT WITH PAST EBV INFECTION Result Comment: NORM AL RANGES: < OR = 0.9O NEGATIVE ; NO SIGNIFICANT LEVEL OF DETECTABLE EBV-VCA IgM AB 0.91 - 1.09 EQUIVOCAL; REPEAT TESTING SUGGESTED > OR = 1.10 POSITIVE ; SIGNIFICANT LEVEL OF DETECTABLE EBV-VCA IgM AB Performed By: #### 3 1397, 30089, 37917, 60266, 68774 #### [facility] [address] [place] [address], [facility] [[email or web address]] HEMOGLOBIN A1Con 02-12-2022 Glucose [Moles/Vol] 120 mmol/L Normal [facility] Comment on above: Performed By: #### 8 3533, 40401 #### [facility] [address] [place] [address], [facility] [[email or web address]] HbA1c (Bld) [Mass fraction] 5.8 % Normal 4.0-6.[address] [facility] Comment on above: Performed By: #### 8 5123, 60253 #### [facility] [address] [facility] [place] [address], [facility] [[email or web address]] HEPATITIS A ANTIBODY IGMon 0 02-12-2022 HEP A AB IGM Non-Reactive Normal NONREACTIVE [facility] Comment on above: Performed By: #### 3 1397, 24684, 58096, 03690, 72068 #### [facility] [address] [place] [address], [facility] [[email or web address]] HEPATITIS B CORE ANTIBODYon 02-12-2022 HEP B CORE AB Non-Reactive Normal NONREACTIVE [facility] Comment on above: Performed By: #### 3 1397, 13721, 75961, 18678, 08207 #### [facility] [address] [place] [address], [facility] [[email or web address]] HEPATITIS B SURFACE ANTIBODY QUANTon 02-12-2022 HEP B SURF AB 1.14 mIU/ml Normal [facility] Comment on above: Result Comment: INTE RPRETATION: NONREACTIVE<8.00 mIU/mL INDETERMINATE8.00 - 12.00 mIU/mL REACTIVE>12 mIU/mL Performed By: #### 3 1397, 54302, 74517, 84967, 48843 #### [facility] [address] [place] [address], [facility] [[email or web address]] HEPATITIS B SURFACE ANTIGEN QUALon 02-12-2022 HEP B SURF AG QUAL Non-Reactive Normal NONREACTIVE [facility] Comment on above: Performed By: #### 3 1397, 23690, 44687, 88336, 26004 #### [facility] [address] [place] [address], [facility] [[email or web address]] HEPATITIS C ANTIBODYon 02-12 ANTI-HCV Non-Reactive Normal NONREACTIVE [facility] Comment on above: Performed By: #### 3 1397, 81071, 39654, 41195, 42091 #### [facility] [address] [place] [address], [facility] [[email or web address]] HIV1 AND 2 COMBO 4Gon 2021 HIV COMBO Negative Normal NEGATIVE [facility] Comment on above: Performed By: #### 3 1397, 09119, 87280, 50669, 27869 #### [facility] [address] [place] [address], [facility] [[email or web address]] HLA ABC CLASS I TYPINGon A*-1 EQUIVALENT 1 Normal [address] [facility] Comment on above: Order Comment: Some [...] to frequency. Performed By: #### 3 1397, 22798, 07442, 16961, 22745 #### [facility] [address] [place] [address], [facility] [[email or web address]] A*-2 EQUIVALENT 2 Normal [address] [facility] Comment on above: Order Comment: Some [...] to frequency. Performed By: #### 3 1397, 76234, 37237, 50587, 43361 #### [facility] [address] [place] [address], [facility] [[email or web address]] B*-1 EQUIVALENT 35 Normal [address] [facility] Comment on above: Order Comment: Some [...] to frequency. Performed By: #### 3 1397, 38186, 69428, 28103, 78500 #### [facility] [address] [place] [address], [facility] [[email or web address]] B*-2 EQUIVALENT 37 Normal [address] [facility] Comment on above: Order Comment: Some [...] to frequency. Performed By: #### 3 1397, 47428, 57595, 84900, 72383 #### [facility] [address] [place] [address], [facility] [[email or web address]] Bw*-1 EQUIVALENT 4 Normal [address] [facility] Comment on above: Order Comment: Some [...] to frequency. Performed By: #### 3 1397, 62430, 03271, 98627, 85864 #### [facility] [address] [place] [address], [place] Bw*-2 EQUIVALENT 6 Normal [address] [facility] Comment on above: Order Comment: Some [...] to frequency. Performed By: #### 3 1397, 87869, 24882, 61894, 16948 #### [facility] [address] C*-1 EQUIVALENT 4 Normal [address] [facility] Comment on above: Order Comment: Some [...] to frequency. Performed By: #### 3 1397, 14167, 02165, 47725, 60007 #### [facility] [address] [place] [address], [facility] [[email or web address]] C*-2 EQUIVALENT 6 Normal [address] [facility] Comment on above: Order Comment: Some [...] to frequency. Performed By: #### 3 1397, 94922, 74844, 82815, 48844 #### [facility] [address] [place] [address], [facility] [[email or web address]] METHOD Class I Typing by PCR-SSOP Luminex Normal [facility] Comment on above: Order Comment: Some [...] to frequency. Performed By: #### 3 1397, 70888, 11780, 30437, 53554 #### [facility] [address] SIGNED BY Normal [facility] Comment on above: Order Comment: Some [...] to frequency. Result Comment: Sree Noriega MS,CHT(DONA),MT(ASCP) Supervisor Anodizing, Transplant Immunology Performed By: #### 3 1397, 18895, 15048, 15542, 54004 #### [facility] [address] HLA DR CLASS II TYPINGon DPB1*-1 EQUIVALENT 04:01 Normal [facility] Comment on above: Order Comment: Some [...] to frequency. Performed By: #### 3 1397, 41434, 71031, 38457, 07176 #### [facility] [address] DPB1*-2 EQUIVALENT 04:02 Normal [facility] Comment on above: Order Comment: Some [...] to frequency. Performed By: #### 3 1397, 62459, 89026, 60439, 82577 #### [facility] [address] [place] [address], [place] DQA1*-1 EQUIVALENT 01 Normal [facility] Comment on above: Order Comment: Some [...] to frequency. Performed By: #### 3 1397, 93246, 59982, 98841, 70681 #### [facility] [address] [place] [address], [place] DQA1*-2 EQUIVALENT 05 Normal [facility] Comment on above: Order Comment: Some [...] to frequency. Performed By: #### 3 1397, 60545, 47583, 13547, 36203 #### [facility] [address] [place] [address], [place] DQB1*-1 EQUIVALENT 7 Normal [address] [facility] Comment on above: Order Comment: Some [...] to frequency. Performed By: #### 3 1397, 03394, 19286, 00538, 03544 #### [facility] [address] [place] [address], [facility] [[email or web address]] DQB1*-2 EQUIVALENT 5 Normal [address] [facility] Comment on above: Order Comment: Some [...] to frequency. Performed By: #### 3 1397, 25201, 53822, 03352, 28749 #### [facility] [address] [place] [address], [facility] [[email or web address]] DRB1*-1 EQUIVALENT 10 Normal [address] [facility] Comment on above: Order Comment: Some [...] to frequency. Performed By: #### 3 1397, 05629, 70523, 28279, 86179 #### [facility] [address] [place] [address], [place] DRB1*-2 EQUIVALENT 11 Normal [address] [facility] Comment on above: Order Comment: Some [...] to frequency. Performed By: #### 3 1397, 50752, 35581, 59349, 08810 #### [facility] [address] [facility]. [address] DRB3*-1 EQUIVALENT 52 Normal [address] [facility] Comment on above: Order Comment: Some [...] to frequency. Performed By: #### 3 1397, 69047, 10541, 99752, 22474 #### [facility] [address] [facility]. [address] METHOD Class II Typing by PCR-SSOP Luminex Normal [facility] Comment on above: Order Comment: Some [...] to frequency. Performed By: #### 3 1397, 64032, 89549, 99596, 74016 #### [facility] [address] [place] [address], [facility] [[email or web address]] LIPID PROFILEon 02-12-2022 Cholesterol [Mass/Vol] 221 mg/dL High 120-[address] [facility] Comment on above: Result Comment: CHOL ESTEROL REFERENCE RANGE: 20 YEARS AND OLDER CARDIOVASCULAR RISK Less than 200 mg/dl Low Risk 200 to 239 mg/dl Borderline Risk 240 mg/dl and greater High Risk Performed By: #### 3 1397, 35782, 62505, 87588, 33201 #### [facility] [address] [place] [address], [place] Cholesterol in HDL [Mass/Vol] 40 mg/dL Normal 23-[address] [facility] Comment on above: Result Comment: Slig ht variation in normal range could be due to gender and/or age. HDL CHOLESTEROL REFERENCE RANGE: 20 years and older Cardiovascular Risk > or =60 mg/dL Desirable 40 TO 59 mg/dL Low Risk <40 mg/dL High Risk Performed By: #### 3 1397, 12400, 31772, 49198, 50354 #### [facility] [address] [place] [address], [place] Cholesterol in LDL [Mass/Vol] 101 mg/dL Normal 0-[address] [facility] Comment on above: Result Comment: LDL IS A CALCULATION LDL IS ONLY VALID IF THE TRIG IS LESS THAN 400. Performed By: #### 3 1397, 21938, 45193, 46509, 63174 #### [facility] [address] [place] [address], [place] Cholesterol.total/Patt sterol in HDL [Mass ratio] 5.5 {ratio} High .0-4.[address] [facility] Comment on above: Performed By: #### 3 1397, 22765, 21106, 31006, 86468 #### [facility] [address] [place] [address], [place] NON-HDL CHOLESTEROL 181 mg/dL Normal [facility] Comment on above: Performed By: #### 3 1397, 50926, 40606, 25709, 92149 #### [facility] [address] [place] [address], [place] Triglyceride [Mass/Vol] 402 mg/dL High 40-[address] [facility] Comment on above: Result Comment: TRIG LYCERIDE REFERENCE RANGE: 20 YEARS AND OLDER CARDIOVASCULAR RISK LESS THAN 150 mg/dl LOW RISK 150 TO 199 mg/dl BORDERLINE RISK 200 mg/dl AND GREATER HIGH RISK Performed By: #### 3 1397, 15206, 32360, 14935, 19183 #### [facility] [address] VLDL CHOL 80 mg/dL High 0-[address] [facility] Comment on above: Performed By: #### 3 1397, 81197, 85759, 25145, 80995 #### [facility] [address] MUMPS IGG BLDon 02-12-2022 MUMPS IGG 5.46 Normal [address] [facility] Comment on above: Result Comment: NORM AL RANGES: < OR = 0.9O NEGATIVE ; NO DETECTABLE IgG ANTIBODY TO MUMPS 0.91 - 1.09 EQUIVOCAL; REPEAT TESTING SUGGESTED > OR = 1.10 POSITIVE ; INDICATES PRESENCE OF DETECTABLE IgG ANTIBODY TO MUMPS Performed By: #### 3 1397, 52739, 90701, 56700, 20292 #### [facility] [address] [facility] [facility] RUBELLAon 02-12-2022 RUBELLA 4.79 Normal [address] [facility] Comment on above: Result Comment: NORM AL RANGES: < OR = 0.9O NEGATIVE ; NO DETECTABLE IgG ANTIBODY TO RUBELLA 0.91 - 1.09 EQUIVOCAL; REPEAT TESTING SUGGESTED > OR = 1.10 POSITIVE ; INDICATES PRESENCE OF DETECTABLE IgG ANTIBODY TO RUBELLA VIRUS Performed By: #### 3 1397, 13649, 68759, 97464, 41527 #### [facility] [address] [facility] RUBEOLA MEASLES IGGon 2021 RUBEO IGG 6.[address] Normal [address] [facility] Comment on above: Result Comment: NORM AL RANGES: < OR = 0.9O NEGATIVE ; NO DETECTABLE IgG ANTIBODY TO RUBEOLA 0.91 - 1.09 EQUIVOCAL; REPEAT TESTING SUGGESTED > OR = 1.10 POSITIVE ; INDICATES PRESENCE OF DETECTABLE IgG ANTIBODY TO RUBEOLA Performed By: #### 3 1397, 64198, 92585, 88178, 66388 #### [facility] [address] SINGLE ANTIGEN CLASS 1on METHOD Class I Single Antigen Normal Th e [facility] Comment on above: Order Comment: Some [...] to frequency. Performed By: #### 3 1397, 54020, 98876, 84591, 41822 #### [facility] [address] SINGLE ANTIGEN CLASS 2on COMMENTS Normal [facility] Comment on above: Order Comment: Some [...] watch list. Performed By: #### 3 1397, 73463, 87069, 32611, 45559 #### [facility] [address] Result Comment: Clas s I Antigen Microbeads Potential specificites added to the watch list. CPRA 0 Normal [facility] Comment on above: Order Comment: Some [...] to frequency. Performed By: #### 3 1397, 13378, 49466, 89126, 60606 #### [facility] [address] METHOD Class II Single Antigen Normal T he [facility] Comment on above: Order Comment: Some [...] to frequency. Performed By: #### 3 1397, 13323, 47163, 52844, 56758 #### [facility] [address] T PROT UR Yesy 02-12-2022 U TOTAL PROTEIN 44.0 mg/dL Normal [facility] Comment on above: Result Comment: Ther e are no established reference values for random urine specimens Performed By: #### 3 1397, 79680, 65779, 19269, 80675 #### [facility] [address] TB QUANTIFERON PLUSon 2021 MITOGEN MINUS NIL >10.[address] Normal [address] [facility] Comment on above: Performed By: #### 3 1592 #### [facility] [address] NIL 0.03 IU/mL Normal [facility] Comment on above: Performed By: #### 3 1592 #### [facility] [address] TB QUANTIFERON Negative Normal NEGATIVE [facility] Comment on above: Result Comment: Jadiel tiferon TB Gold Interpretation (IU/mL): NEGATIVE: M. tuberculosis infection not likely. Nil: <=8.0 TB1 Antigen minus Nil (BE2NE-MYN): <0.35 OR >=0.35; and <25% of Nil value. TB2 Antigen minus Nil (BQ0TP-MLP): <0.35 OR >=0.35; and <25% of Nil [...] (https://www.cdc.gov/tb/publications/guidlines/default.htm Performed By: #### 3 1592 #### [facility] [address] TB1 AG 0.05 IU/mL Normal [facility] Comment on above: Performed By: #### 3 1592 #### [facility] [address] TB1 AG MINUS NIL 0.02 IU/mL Normal [facility] Comment on above: Performed By: #### 3 1592 #### [facility] [address] TB2 AG 0.05 IU/mL Normal [facility] Comment on above: Performed By: #### 3 1592 #### [facility] [address] [place] [address], [facility] [[email or web address]] TB2 AG MINUS NIL 0.02 IU/mL Normal [facility] Comment on above: Performed By: #### 3 1592 #### [facility] [address] [place] [address], [facility] [[email or web address]] UA,MICROSCOPIC REQUIREDon Appearance (U) SL CLOUDY Abnormal CLEAR [facility] Comment on above: Performed By: #### 3 1397, 95365, 04391, 72544, 45022 #### [facility] [address] [place] [address], [facility] [[email or web address]] Bilirubin Ql (U) Negative Normal NEGATIVE [facility] Comment on above: Performed By: #### 3 1397, 19176, 04867, 99055, 74455 #### [facility] [address] [place] [address], [facility] [[email or web address]] Color (U) STRAW Abnormal YELLOW [facility] Comment on above: Performed By: #### 3 1397, 11809, 21301, 46126, 77364 #### [facility] [address] [place] [address], [facility] [[email or web address]] EPIS MANY Abnormal FEW,OCC,NONE SEEN [facility] Comment on above: Performed By: #### 3 1397, 58780, 67723, 17178, 78407 #### [facility] [address] [place] [address], [facility] [[email or web address]] Glucose Ql (U) 50 mg/dL Abnormal NEGATIVE [facility] Comment on above: Performed By: #### 3 1397, 54558, 97709, 80981, 09291 #### [facility] [address] [place] [address], [facility] [[email or web address]] Hemoglobin Ql (U) Negative Normal NEGATIVE [facility] Comment on above: Performed By: #### 3 1397, 61970, 10190, 45926, 53620 #### [facility] [address] [place] [address], [facility] [[email or web address]] KETONE Negative Normal NEGATIVE [facility] Comment on above: Performed By: #### 3 1397, 16951, 67804, 01622, 52410 #### [facility] [address] [place] [address], [facility] [[email or web address]] LEUK MARYAN MODERATE Abnormal NEGATIVE [facility] Comment on above: Performed By: #### 3 1397, 68032, 33710, 88636, 04654 #### [facility] [address] [place] [address], [facility] [[email or web address]] Nitrite Ql (U) Negative Normal NEGATIVE [facility] Comment on above: Performed By: #### 3 1397, 42414, 92155, 31042, 07886 #### [facility] [address] [facility] pH (U) 7.0 [pH] Normal 5.0-8.[address] [facility] Comment on above: Performed By: #### 3 1397, 46925, 79256, 43158, 06989 #### [facility] [address] [facility] Protein Ql (U) 30 mg/dL Abnormal NEGATIVE [facility] Comment on above: Performed By: #### 3 1397, 12905, 05608, 42112, 27577 #### [facility] [address] [facility] RBC NONE SEEN Normal NONE SEEN [facility] Comment on above: Performed By: #### 3 1397, 36213, 81807, 22543, 70006 #### [facility] [address] [facility]. [address] SPEC GRAV 1.009 Low 1.015-1.[address] [facility] Comment on above: Performed By: #### 3 1397, 09867, 34060, 80245, 83719 #### [facility] [address] [facility] WBC UA 11-20 Abnormal NONE SEEN [facility] Comment on above: Performed By: #### 3 1397, 26094, 11958, 42277, 25589 #### [facility] [address] [facility] VARICELLA ZOSTER IGGon 02-12 VARICELLA IGG 3.[address] Normal [address] [facility] Comment on above: Result Comment: NORM AL RANGES: < OR = 0.9O NEGATIVE ; NO DETECTABLE IgG ANTIBODY TO VARICELLA-ZOSTER VIRUS 0.91 - 1.09 EQUIVOCAL; REPEAT TESTING SUGGESTED > OR = 1.10 POSITIVE ; INDICATES PRESENCE OF DETECTABLE IgG ANTIBODY TO VARICELLA-ZOSTER VIRUS Performed By: #### 3 1397, 27827, 81731, 58517, 63076 #### [facility] [address] [place] [address], [facility] [[email or web address]] PTH INTACTon 12-04-2021 PTH, Intact 165 pg/mL Critically high 15-65 [facility] Comment on above: Performed By: #### M G, URIC, RENAL #### [facility] [address] [place] [address] Dr. Hari Palmer FERRITINon 12-03-2021 Ferritin [Mass/Vol] 256.0 ng/mL Critically high 6.2-137.0 [facility] Comment on above: Performed By: #### M G, URIC, RENAL #### [facility] [address] [place] [address] Dr. Hari Palmer HEMOGRAM AND PLATELon 2021 Hematocrit (Bld) [Volume fraction] 33.7 % Critically low 36.0-48.0 [facility] Comment on above: Performed By: #### M G, URIC, RENAL #### [facility] [address] [place] [address] Dr. Hari Palmer Hemoglobin (Bld) [Mass/Vol] 10.9 g/dL Critically low 12.0-16.0 [facility] Comment on above: Performed By: #### M G, URIC, RENAL #### [facility] [address] [place] [address] Dr. Hari Palmer MCH (RBC) [Entitic mass] 31.4 pg Normal 26.7-34.0 [facility] Comment on above: Performed By: #### M G, URIC, RENAL #### [facility] [address] [place] [address] Dr. Hari Palmer MCHC (RBC) [Mass/Vol] 32.3 g/dL Normal 29.9-35.2 [facility] Comment on above: Performed By: #### M G, URIC, RENAL #### [facility] [address] [place] [address] Dr. Hari Palmer MCV (RBC) [Entitic vol] 97.1 fL Normal 81.0-99.0 T [facility] Comment on above: Performed By: #### M G, URIC, RENAL #### [facility] [address] [place] [address] Dr. Hari Palmer PLT 314 103/ul Normal 150-450 [facility] Comment on above: Performed By: #### M G, URIC, RENAL #### [facility] [address] [place] [address] Dr. Hari Palmer RBC 3.47 106/ul Critically low 4.20-5.40 [facility] Comment on above: Performed By: #### M G, URIC, RENAL #### [facility] [address] [place] [address] Dr. Hari Palmer WBC 9.4 103/ul Normal 4.0-11.0 [facility] Comment on above: Performed By: #### M G, URIC, RENAL #### [facility] [address] [place] [address] Dr. Hari Palmer IRON AND TIBCon 12-03-2021 % SATURATION 19.0 % Normal [facility] Comment on above: Performed By: #### M G, URIC, RENAL #### [facility] [address] [place] [address] Dr. Hari Palmer Iron [Mass/Vol] 52.0 ug/dL Normal 37.0-170.0 [facility] Comment on above: Performed By: #### M G, URIC, RENAL #### [facility] [address] [place] [address] Dr. Hari Palmer TIBC DIRECT 273.0 ug/dL Normal 261.0-497.0 [facility] Comment on above: Performed By: #### M G, URIC, RENAL #### [facility] [address] [place] [address] Dr. Hari Palmer MAGNESIUMon 12-03-2021 Magnesium [Mass/Vol] 2.1 mg/dL Normal 1.6-2.3 [facility] Comment on above: Performed By: #### M G, URIC, RENAL #### [facility] [address] [place] [address] Dr. Hari Palmer RENAL FUNCTION PANELon 12-03 Albumin [Mass/Vol] 3.6 g/dL Normal 3.5-5.0 [facility] Comment on above: Performed By: #### M G, URIC, RENAL #### [facility] [address] [address] [address] Hari Palmer Calcium [Mass/Vol] 8.4 mg/dL Normal 8.4-10.2 [facility] Comment on above: Performed By: #### M G, URIC, RENAL #### [facility] [address] [address] [address] Hari Palmer Chloride [Moles/Vol] 101 mmol/L Normal 98-107 [facility] Comment on above: Performed By: #### M G, URIC, RENAL #### [facility] [address] [address] [address] Hari Palmer CO2 [Moles/Vol] 24.3 mmol/L Normal 22.0-30.0 [facility] Comment on above: Performed By: #### M G, URIC, RENAL #### [facility] [address] [address] [address] Hari Palmer Creatinine [Mass/Vol] 3.32 mg/dL Critically high 0.52-1.04 [facility] Comment on above: Performed By: #### M G, URIC, RENAL #### [facility] [address] [address] [address] Hari Palmer EGFR-AF TURKISH 18 mL/min/1.73m2 Critically low >=60 [facility] Comment on above: Performed By: #### M G, URIC, RENAL #### [facility] [address] [address] [address] Hari Palmer EGFR-NON AF TURKISH 15 mL/min/1.73m2 Critically low >=60 [facility] Comment on above: Performed By: #### M G, URIC, RENAL #### [facility] [address] [address] [address] Hari Palmer Glucose [Mass/Vol] 119 mg/dL Critically high 74-106 T [facility] Comment on above: Performed By: #### M G, URIC, RENAL #### [facility] [address] [address] [address] Hari Palmer Phosphate [Mass/Vol] 4.7 mg/dL Critically high 2.5-4.5 [facility] Comment on above: Performed By: #### M G, URIC, RENAL #### [facility] [address] [place] [address] Dr. Hari Palmer Potassium [Moles/Vol] 4.0 mmol/L Normal 3.4-5.0 [facility] Comment on above: Performed By: #### M G, URIC, RENAL #### [facility] [address] [place] [address] Dr. Hari Palmer Sodium [Moles/Vol] 135 mmol/L Critically low 137-145 [facility] Comment on above: Performed By: #### M G, URIC, RENAL #### [facility] [address] [place] [address] Dr. Hari Palmer Urea nitrogen [Mass/Vol] 42.0 mg/dL Critically high 7.0-17.0 [facility] Comment on above: Performed By: #### M G, URIC, RENAL #### [facility] [address] [place] [address] Dr. Hari Palmer UA RANDOM W/MICROSCOPICon BACTERIA TRACE Abnormal NONE SEEN [facility] Comment on above: Performed By: #### U AMIC #### [facility] [address] [place] [address] Dr. Hari Palmer Bilirubin Ql (U) Negative Normal NEGATIVE [facility] Comment on above: Performed By: #### U AMIC #### [facility] [address] [place] [address] Dr. Hari Palmer CAST NONE SEEN Normal NONE SEEN [facility] Comment on above: Performed By: #### U AMIC #### [facility] [address] [place] [address] Dr. Hari Palmer Clarity (U) CLEAR Normal CLEAR [facility] Comment on above: Performed By: #### U AMIC #### [facility] [address] [address] [address] Hari Palmer Color (U) LT. YELLOW Normal YELLOW [facility] Comment on above: Performed By: #### U AMIC #### [facility] [address] [place] [address] Dr. Hari Palmer Crystals LM Nom (Urine sed) NONE SEEN Normal NONE SEEN [facility] Comment on above: Performed By: #### U AMIC #### [facility] [address] [address] [address] Hari Palmer Epithelial cells LM Ql (Urine sed) FEW Abnormal NONE SEEN /RARE [facility] Comment on above: Performed By: #### U AMIC #### [facility] [address] [place] [address] Dr. Hari Palmer Glucose Ql (U) 100 mg/dl Abnormal NEGATIVE [facility] Comment on above: Performed By: #### U AMIC #### [facility] [address] [address] [address] Hari Palmer Hemoglobin Ql (U) TRACE-INTACT Abnormal NEGATIVE [facility] Comment on above: Performed By: #### U AMIC #### [facility] [address] [place] [address] Dr. Hari Palmer Ketones Ql (U) Negative Normal NEGATIVE [facility] Comment on above: Performed By: #### U AMIC #### [facility] [address] [address] [address] Hari Palmer LEUKOCYTES SMALL Abnormal NEGATIVE [facility] Comment on above: Performed By: #### U AMIC #### [facility] [address] [place] [address] Dr. Hari Palmer MUCOUS NONE SEEN Normal NONE SEEN [facility] Comment on above: Performed By: #### U AMIC #### [facility] [address] [place] [address] Dr. Hari Palmer Nitrite Ql (U) Negative Normal NEGATIVE [facility] Comment on above: Performed By: #### U AMIC #### [facility] [address] [place] [address] Dr. Hari Palmer pH (U) 6.0 [pH] Normal 5-9 [facility] Comment on above: Performed By: #### U AMIC #### [facility] [address] [place] [address] Dr. Hari Palmer RBC 0-2 Normal 0-2 [facility] Comment on above: Performed By: #### U AMIC #### [facility] [address] [place] [address] Dr. Hari Palmer SPEC GRAVITY 1.010 Normal 1.005-<=1.02 5 [facility] Comment on above: Performed By: #### U AMIC #### [facility] [address] [place] [address] Dr. Hari Palmer UA PROTEIN Negative Normal NEGATIVE/ TRACE [facility] Comment on above: Performed By: #### U AMIC #### [facility] [address] [place] [address] Dr. Hari Palmer Urobilinogen Qn (U) 0.2 {Janice'U}/dL Normal 0.2 - 1. 0 [facility] Comment on above: Performed By: #### U AMIC #### [facility] [address] [place] [address] Dr. Hari Palmer WBC 5-10 Abnormal NONE SEEN [facility] Comment on above: Performed By: #### U AMIC #### [facility] [address] [place] [address] Dr. Hari Palmer URIC ACID SERUMon 12-03-2021 Urate [Mass/Vol] 4.6 mg/dL Normal 2.5-6.2 [facility] Comment on above: Performed By: #### M G, URIC, RENAL #### [facility] [address] [place] [address] Dr. Hari Palmer URINE T PROTEIN CREAT RATIOo n 12-03-2021 Protein (U) [Mass/Vol] 31.7 mg/dL Critically high <=12.0 [facility] Comment on above: Performed By: #### M G, URIC, RENAL #### [facility] [address] [place] [address] Dr. Hari Palmer UR PROT CREAT RAT 0.54 Normal [facility] Comment on above: Performed By: #### M G, URIC, RENAL #### [facility] [address] [place] [address] Dr. Hari Palmer URINE CREAT 59.03 mg/dL Normal 20.00-300.00 [facility] Comment on above: Performed By: #### M G, URIC, RENAL #### [facility] [address] [address] [address] Hari Palmer VITAMIN D 25 OHon 12-03-2021 VIT D 25-OH 38.1 ng/mL Normal [facility] Comment on above: Performed By: #### M G, URIC, RENAL #### [facility] [address] [place] [address] Dr. Hari Palmer VIT D RANGES SEE BELOW Normal [facility] Comment on above: Result Comment: <20 ng/mL Vit D deficient 20 - <30 ng/mL Vit D insufficient 30 - 100 ng/mL Vit D sufficient >100 ng/mL Potential Toxicity Performed By: #### M G, URIC, RENAL #### [facility] [address] [place] [address] Dr. Hari Palmer PTH INTACTon 09-03-2021 PTH, Intact 177 pg/mL Critically high 15-65 [facility] Comment on above: Performed By: #### P THINT #### [facility] [address] [place] [address] Dr. Hari Palmer CBC AUTO DIFFon 09-01-2021 BASO # 0.1 103/ul Normal 0.0-0.1 [facility] Comment on above: Performed By: #### M G, URIC, RENAL #### [facility] [address] [place] [address] Dr. Hari Palmer Basophils/100 WBC (Bld) 0.6 % Normal 0.2-2.0 T [facility] Comment on above: Performed By: #### M G, URIC, RENAL #### [facility] [address] [place] [address] Dr. Hari Palmer EO # 0.3 103/ul Normal 0.0-0.7 [facility] Comment on above: Performed By: #### M G, URIC, RENAL #### [facility] [address] [place] [address] Dr. Hari Palmer Eosinophils/100 WBC (Bld) 3.5 % Normal 0.9-7.0 [facility] Comment on above: Performed By: #### M G, URIC, RENAL #### [facility] [address] [place] [address] Dr. Hari Palmer Erythrocyte distribution width (RBC) [Ratio] 13.8 % Normal 11.0-15.0 [facility] Comment on above: Performed By: #### M G, URIC, RENAL #### [facility] [address] [place] [address] Dr. Hari Palmer Hematocrit (Bld) [Volume fraction] 32.8 % Critically low 36.0-48.0 [facility] Comment on above: Performed By: #### M G, URIC, RENAL #### [facility] [address] [place] [address] Dr. Hari Palmer Hemoglobin (Bld) [Mass/Vol] 10.6 g/dL Critically low 12.0-16.0 [facility] Comment on above: Performed By: #### M G, URIC, RENAL #### [facility] [address] [place] [address] Dr. Hari Palmer IG # 0.14 10e3/ul Critically high 0.00-0.03 [facility] Comment on above: Performed By: #### M G, URIC, RENAL #### [facility] [address] [place] [address] Dr. Hari Palmer IG % 1.5 % Critically high 0.0-0.5 [facility] Comment on above: Performed By: #### M G, URIC, RENAL #### [facility] [address] [place] [address] Dr. Hari Palmer LYMPH # 1.8 103/ul Normal 1.2-3.8 [facility] Comment on above: Performed By: #### M G, URIC, RENAL #### [facility] [address] [address] [address] Hari Palmer Lymphocytes/100 WBC (Bld) 19.3 % Critically low 20.5-60.0 [facility] Comment on above: Performed By: #### M G, URIC, RENAL #### [facility] [address] [place] [address] Dr. Hari Palmer MANUAL DIFF REQ NO Normal [facility] Comment on above: Performed By: #### M G, URIC, RENAL #### [facility] [address] [place] [address] Dr. Hari Palmer MCH (RBC) [Entitic mass] 31.4 pg Normal 26.7-34.0 [facility] Comment on above: Performed By: #### M G, URIC, RENAL #### [facility] [address] [place] [address] Dr. Hari Palmer MCHC (RBC) [Mass/Vol] 32.3 g/dL Normal 29.9-35.2 [facility] Comment on above: Performed By: #### M G, URIC, RENAL #### [facility] [address] [place] [address] Dr. Hari Palmer MCV (RBC) [Entitic vol] 97.0 fL Normal 81.0-99.0 [facility] Comment on above: Performed By: #### M G, URIC, RENAL #### [facility] [address] [place] [address] Dr. Hari Palmer MONO # 0.4 103/ul Normal 0.3-0.8 [facility] Comment on above: Performed By: #### M G, URIC, RENAL #### [facility] [address] [place] [address] Dr. Hari Palmer Monocytes/100 WBC (Bld) 4.2 % Normal 1.7-12.0 [facility] Comment on above: Performed By: #### M G, URIC, RENAL #### [facility] [address] [place] [address] Dr. Hari Palmer NEUT # 6.5 103/ul Normal 1.4-6.5 [facility] Comment on above: Performed By: #### M G, URIC, RENAL #### [facility] [address] [place] [address] Dr. Hari Palmer Neutrophils/100 WBC (Bld) 70.9 % Normal 43.0-75.0 [facility] Comment on above: Performed By: #### M G, URIC, RENAL #### [facility] [address] [place] [address] Dr. Hari Palmer Platelet mean volume (Bld) [Entitic vol] 9.0 fL Critically low 9.5-13.5 [facility] Comment on above: Performed By: #### M G, URIC, RENAL #### [facility] [address] [place] [address] Dr. Hari Palmer PLT 289 103/ul Normal 150-450 [facility] Comment on above: Performed By: #### M G, URIC, RENAL #### [facility] [address] [place] [address] Dr. Hari Palmer RBC 3.38 106/ul Critically low 4.20-5.40 [facility] Comment on above: Performed By: #### M G, URIC, RENAL #### [facility] [address] [place] [address] Dr. Hari Palmer WBC 9.1 103/ul Normal 4.0-11.0 [facility] Comment on above: Performed By: #### M G, URIC, RENAL #### [facility] [address] [place] [address] Dr. Hari Palmer FERRITINon 09-01-2021 Ferritin [Mass/Vol] 204.0 ng/mL Critically high 6.2-137.0 [facility] Comment on above: Performed By: #### M G, URIC, RENAL #### [facility] [address] [place] [address] Dr. Hari Palmer IRON AND TIBCon 09-01-2021 % SATURATION 28.4 % Normal [facility] Comment on above: Performed By: #### M G, URIC, RENAL #### [facility] [address] [place] [address] Dr. Hari Palmer Iron [Mass/Vol] 80.0 ug/dL Normal 37.0-170.0 [facility] Comment on above: Performed By: #### M G, URIC, RENAL #### [facility] [address] [place] [address] Dr. Hari Palmer TIBC DIRECT 282.0 ug/dL Normal 261.0-497.0 [facility] Comment on above: Performed By: #### M G, URIC, RENAL #### [facility] [address] [place] [address] Dr. Hari Palmer MAGNESIUMon 09-01-2021 Magnesium [Mass/Vol] 2.2 mg/dL Normal 1.6-2.3 [facility] Comment on above: Performed By: #### U AMIC #### [facility] [address] [place] [address] Dr. Hari Palmer RENAL FUNCTION PANELon 09-01 Albumin [Mass/Vol] 3.5 g/dL Normal 3.5-5.0 [facility] Comment on above: Performed By: #### M G, URIC, RENAL #### [facility] [address] [address] [address] Hari Palmer Calcium [Mass/Vol] 8.7 mg/dL Normal 8.4-10.2 [facility] Comment on above: Performed By: #### M G, URIC, RENAL #### [facility] [address] [place] [address] Dr. Hari Palmer Chloride [Moles/Vol] 105 mmol/L Normal 98-107 [facility] Comment on above: Performed By: #### M G, URIC, RENAL #### [facility] [address] [place] [address] Dr. Hari Palmer CO2 [Moles/Vol] 21.1 mmol/L Critically low 22.0-30.0 [facility] Comment on above: Performed By: #### M G, URIC, RENAL #### [facility] [address] [address] [address] Hari Palmer Creatinine [Mass/Vol] 3.63 mg/dL Critically high 0.52-1.04 [facility] Comment on above: Performed By: #### M G, URIC, RENAL #### [facility] [address] [place] [address] Dr. Hari Palmer EGFR-AF TURKISH 16 mL/min/1.73m2 Critically low >=60 [facility] Comment on above: Performed By: #### M G, URIC, RENAL #### [facility] [address] [place] [address] Dr. Hari Palmer EGFR-NON AF TURKISH 14 mL/min/1.73m2 Critically low >=60 [facility] Comment on above: Performed By: #### M G, URIC, RENAL #### [facility] [address] [place] [address] Dr. Hari Palmer Glucose [Mass/Vol] 115 mg/dL Critically high 74-106 T [facility] Comment on above: Performed By: #### M G, URIC, RENAL #### [facility] [address] [place] [address] Dr. Hari Palmer Phosphate [Mass/Vol] 4.6 mg/dL Critically high 2.5-4.5 [facility] Comment on above: Performed By: #### M G, URIC, RENAL #### [facility] [address] [place] [address] Dr. Hari Palmer Potassium [Moles/Vol] 4.2 mmol/L Normal 3.4-5.0 [facility] Comment on above: Performed By: #### M G, URIC, RENAL #### [facility] [address] [place] [address] Dr. Hari Palmer Sodium [Moles/Vol] 138 mmol/L Normal 137-145 [facility] Comment on above: Performed By: #### M G, URIC, RENAL #### [facility] [address] [place] [address] Dr. Hari Palmer Urea nitrogen [Mass/Vol] 50.0 mg/dL Critically high 7.0-17.0 [facility] Comment on above: Performed By: #### M G, URIC, RENAL #### [facility] [address] [place] [address] Dr. Hari Palmer UA RANDOM W/MICROSCOPICon BACTERIA SMALL Abnormal NONE SEEN [facility] Comment on above: Performed By: #### U AMIC #### [facility] [address] [place] [address] Dr. Hari Palmer Bilirubin Ql (U) Negative Normal NEGATIVE [facility] Comment on above: Performed By: #### U AMIC #### [facility] [address] [place] [address] Dr. Hari Palmer CAST NONE SEEN Normal NONE SEEN [facility] Comment on above: Performed By: #### U AMIC #### [facility] [address] [place] [address] Dr. Hari Palmer Clarity (U) CLEAR Normal CLEAR [facility] Comment on above: Performed By: #### U AMIC #### [facility] [address] [place] [address] Dr. Hari Palmer Color (U) LT. YELLOW Normal YELLOW [facility] Comment on above: Performed By: #### U AMIC #### [facility] [address] [place] [address] Dr. Hari Palmer Crystals LM Nom (Urine sed) NONE SEEN Normal NONE SEEN [facility] Comment on above: Performed By: #### U AMIC #### [facility] [address] [place] [address] Dr. Hari Palmer Epithelial cells LM Ql (Urine sed) MODERATE Abnormal NONE SEEN /RARE [facility] Comment on above: Performed By: #### U AMIC #### [facility] [address] [place] [address] Dr. Hari Palmer Glucose Ql (U) Negative Normal NEGATIVE [facility] Comment on above: Performed By: #### U AMIC #### [facility] [address] [place] [address] Dr. Hari Palmer Hemoglobin Ql (U) TRACE-INTACT Abnormal NEGATIVE [facility] Comment on above: Performed By: #### U AMIC #### [facility] [address] [place] [address] Dr. Hari Palmer Ketones Ql (U) Negative Normal NEGATIVE [facility] Comment on above: Performed By: #### U AMIC #### [facility] [address] [place] [address] Dr. Hari Palmer LEUKOCYTES Negative Normal NEGATIVE [facility] Comment on above: Performed By: #### U AMIC #### [facility] [address] [place] [address] Dr. Hari Palmer MUCOUS NONE SEEN Normal NONE SEEN [facility] Comment on above: Performed By: #### U AMIC #### [facility] [address] [place] [address] Dr. Hari Palmer Nitrite Ql (U) Negative Normal NEGATIVE [facility] Comment on above: Performed By: #### U AMIC #### [facility] [address] [place] [address] Dr. Hari Palmer pH (U) 6.0 [pH] Normal 5-9 [facility] Comment on above: Performed By: #### U AMIC #### [facility] [address] [place] [address] Dr. Hari Palmer RBC 2-5 Abnormal 0-2 [facility] Comment on above: Performed By: #### U AMIC #### [facility] [address] [place] [address] Dr. Hari Palmer SPEC GRAVITY 1.010 Normal 1.005-<=1.02 5 [facility] Comment on above: Performed By: #### U AMIC #### [facility] [address] [place] [address] Dr. Hari Palmer UA PROTEIN Negative Normal NEGATIVE/ TRACE [facility] Comment on above: Performed By: #### U AMIC #### [facility] [address] [place] [address] Dr. Hari Palmer Urobilinogen Qn (U) 0.2 {Janice'U}/dL Normal 0.2 - 1. 0 [facility] Comment on above: Performed By: #### U AMIC #### [facility] [address] [place] [address] Dr. Hari Palmer WBC 2-5 Abnormal NONE SEEN [facility] Comment on above: Performed By: #### U AMIC #### [facility] [address] [place] [address] Dr. Hari Palmer URIC ACID SERUMon 09-01-2021 Urate [Mass/Vol] 4.9 mg/dL Normal 2.5-6.2 [facility] Comment on above: Performed By: #### U AMIC #### [facility] [address] [place] [address] Dr. Hari Palmer URINE T PROTEIN CREAT RATIOo n 09-01-2021 Protein (U) [Mass/Vol] 22.2 mg/dL Critically high <=12.0 [facility] Comment on above: Performed By: #### M G, URIC, RENAL #### [facility] [address] [place] [address] Dr. Hari Palmer UR PROT CREAT RAT 0.47 Normal [facility] Comment on above: Performed By: #### M G, URIC, RENAL #### [facility] [address] [place] [address] Dr. Hari Palmer URINE CREAT 46.89 mg/dL Normal 20.00-300.00 [facility] Comment on above: Performed By: #### M G, URIC, RENAL #### [facility] [address] [place] [address] Dr. Hari Palmer VITAMIN D 25 OHon 09-01-2021 VIT D 25-OH 40.5 ng/mL Normal [facility] Comment on above: Performed By: #### M G, URIC, RENAL #### [facility] [address] [place] [address] Dr. Hari Palmer VIT D RANGES SEE BELOW Normal [facility] Comment on above: Result Comment: <20 ng/mL Vit D deficient 20 - <30 ng/mL Vit D insufficient 30 - 100 ng/mL Vit D sufficient >100 ng/mL Potential Toxicity Performed By: #### M G, URIC, RENAL #### [facility] [address] [place] [address] Dr. Hari Palmer CNOVon 03-30-2021 CNOV Office Visit (NEPHMN ) -------- MANDEEP PURI ([id number]) 1975 F Date Time Provider Department 03/30/21 9:20 AM PERRI BARRETT NEPHMN During your visit today, we recorded the following information about you: Temperature Pulse Blood pressure Weight 98.2 degrees 75/minute 122/77 93 kg Height 1.549 m Perri Barrett MD 03/30/2021 10:25 AM Signed Mrs. 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 (more content not included)... Normal [facility] Urinalysison 03-30-2021 Bilirubin, Urine Negative [facility] Comment on above: Performed By: #### U A #### [address] [place] [address] Clarity (U) Clear Normal Clear [facility] Comment on above: Performed By: #### U A #### [facility] [address], [place] [address] Color (U) Colorless Critically abnormal Yellow [facility] Comment on above: Performed By: #### U A #### [facility] [address] [id number] Comments SEE COMMENT Normal [facility] Comment on above: Result Comment: Micr oscopic not warranted Performed By: #### U A #### [address] [place] [address] Glucose Ql (U) Trace Critically abnormal Negative [facility] Comment on above: Performed By: #### U A #### [place] [address] Hemoglobin/Blood,Ur Negative Normal Negative [facility] Comment on above: Performed By: #### U A #### [address] [place] [phone] Ketones Ql (U) Negative Normal Negative [facility] Comment on above: Performed By: #### U A #### [address] [place] [address] Leukest Negative Normal Negative [facility] Comment on above: Performed By: #### U A #### [address] [place] [address] Nitrite Ql (U) Negative Normal Negative [facility] Comment on above: Performed By: #### U A #### [address] [place], [place] [address] pH (U) 6.5 [pH] Normal 5.0-8.0 [facility] Comment on above: Performed By: #### U A #### [address] [place], [place] [address] Protein, Urine Negative Normal Negative [facility] Comment on above: Performed By: #### U A #### [facility] [address] [place], [place] [address] Specific [place], Ur 1.008 Normal 1.005-1.030 [facility] Comment on above: Performed By: #### U A #### [facility] [address] [place], [place] [address] Urine Codi Comment SEE COMMENT Normal [facility] Comment on above: Result Comment: N/A Performed By: #### U A #### [facility] [address] [place], [place] [address] Urobilinogen (U) [Mass/Vol] Negative Normal Negative [facility] Comment on above: Performed By: #### U A #### [facility] [address] [place], [place] [address] Coding Summary.on 04-21-2020 Coding Summary. CODING DATE: 020 [facility] STATUS: Home (Routine DC) PAYOR: Medical [employer] ADMIT DX: REASON FOR VISIT DX: [phone] [...] CphT Date Saved: 04/21/2020 05:17 pm Normal [facility] Physician Orderon 04-21-2020 Physician Order [id number]: 127 Normal [facility] Marci 04-12-2020 ALT [Catalytic activity/Vol] 14 U/L Normal 7 - 45 [facility] Comment on above: Result Comment: Kelsea ents treated with Sulfasalazine may generate falsely decreased results for ALT. Performed By: #### A LT #### [facility] [address] [place] [address] Ronald 04-12-2020 AST [Catalytic activity/Vol] 16 U/L Normal 9 - 39 [facility] Comment on above: Performed By: #### A ST #### [facility] [address] [place] [address] CREATININEon 04-12-2020 Creatinine [Mass/Vol] 2.83 mg/dL High 0.50 - 1.05 [facility] Comment on above: Performed By: #### C REAT #### [facility] [address] [place] [address] Creatinine [Mass/Vol] 18 mL/min/1.73m2 Abnormal >60 [facility] Comment on above: Performed By: #### C REAT #### [facility] [address] [place] [address] Creatinine [Mass/Vol] 22 mL/min/1.73m2 Abnormal >60 [facility] Comment on above: Result Comment: CALC ULATIONS OF ESTIMATED GFR ARE PERFORMED USING THE MDRD STUDY EQUATION FOR THE IDMS-TRACEABLE CREATININE METHODS. CLIN CHEM 2007;53:766-72 Performed By: #### C REAT #### [facility] [address] [place] [address] URIC ACIDon 04-12-2020 Urate [Mass/Vol] 5.2 mg/dL Normal 2.3 - 6.7 [facility] Comment on above: Result Comment: Beti puncture immediately after or during the administration of Metamizole may lead to falsely low results. Testing should be performed immediately prior to Metamizole dosing. Performed By: #### U DASHAWN #### [facility] [address] [place] [address] URIC ACIDon 02-11-2020 Urate [Mass/Vol] 8.2 mg/dL High 2.3 - 6.7 [facility] Comment on above: Result Comment: Beti puncture immediately after or during the administration of Metamizole may lead to falsely low results. Testing should be performed immediately prior to Metamizole dosing. Performed By: #### U DASHAWN #### [facility] [address] [place] [address] Cult,Urineon 08-04-2019 Cult,Urine Specimen Description .CLEAN CATCH URINE Special Requests NOT REPORTED Culture ESCHERICHIA COLI >[id number] CFU/ML Report Status FINAL 08/04/2019 SUSCEPTIBILITY Organism [...] Trimethoprim/Sulfa <=20 SUSCEPTIBLE Piperacillin/Tazobactam <=4 SUSCEPTIBLE Normal [facility] Comment on above: Performed By: #### D CITLALY, LIP, CMPX, TROPI, BNP, CDP, PT #### [address] [place] [address] Vocational Case Manager: Sami Dominguez MD Brain Natri. Peptideon 08-02 Natriuretic peptide B (Bld) [Mass/Vol] 152 pg/mL Normal <300 [facility] Comment on above: Result Comment: Pro- BNP results cannot be compared to BNP results. Performed By: #### D CITLALY, LIP, CMPX, TROPI, BNP, CDP, PT #### [address] [place] [address] Vocational Case Manager: Sami Dominguez MD Natriuretic peptide B (Bld) [Mass/Vol] Pro-BNP Reference Range: Normal [facility] Comment on above: Result Comment: Rule Out: <300 Parra Zone: Age <50 300-450 Age 50-75 300-900 Age >75 300-1800 Usually represents mild to moderate HF but other cardiopulmonary causes cannot be ruled out. Rule In: Age <50 >450 Age 50-75 >900 Age >75 >1800 Performed By: #### D CITLALY, LIP, CMPX, TROPI, BNP, CDP, PT #### [facility] [address] [place] [address] Vocational Case Manager: Sami Dominguez MD Brain Natriuretic Peptideon 08-02-2019 Natriuretic peptide B (Bld) [Mass/Vol] 152 pg/mL <300 [place] Comment on above: Pro-BNP results eric ot be compared to BNP results. Natriuretic peptide B (Bld) [Mass/Vol] Pro-BNP Reference Range: [place] Comment on above: Rule Out: <300 Parra Zone: Age <50 300-450 Age 50-75 300-900 Age >75 300-1800 Usually represents mild to moderate HF but other cardiopulmonary causes cannot be ruled out. Rule In: Age <50 >450 Age 50-75 >900 Age >75 >1800 CBC Auto Differentialon 07-07 Basophils (Bld) [#/Vol] 0.00 10*3/uL [place] Basophils/100 WBC (Bld) 0 % 0 - 2 % [place] Differential Type NOT REPORTED [place] Eosinophils (Bld) [#/Vol] 0.08 10*3/uL [place] Eosinophils/100 WBC (Bld) 1 % 1 - 4 % [place] Erythrocyte distribution width (RBC) [Ratio] 13.2 % 11.8 - 14.4 % [place] Hematocrit (Bld) [Volume fraction] 33.7 % Low 36.3 - 47.1 % [place] Hemoglobin (Bld) [Mass/Vol] 10.7 g/dL Low 11.9 - 15.1 g/dL [place] Immature granulocytes (Bld) [#/Vol] 0 % 0 [place] Immature granulocytes (Bld) [#/Vol] 0.00 10*3/uL [place] Interpretation and review of laboratory results Abnormal [place] Lymphocytes (Bld) [#/Vol] 0.90 10*3/uL [place] Lymphocytes/100 WBC (Bld) 12 % Low 24 - 43 % [place] MCH (RBC) [Entitic mass] 30.2 pg 25.2 - 33.5 pg [place] MCHC (RBC) [Mass/Vol] 31.8 g/dL 28.4 - 34.8 g/dL [place] MCV (RBC) [Entitic vol] 95.2 fL 82.6 - 102.9 fL [place] Monocytes (Bld) [#/Vol] 0.00 10*3/uL Low [place] Monocytes/100 WBC (Bld) 0 % Low 3 - 12 % [place] Morphology Geovany (Bld) [Interp] Normal [place] Platelet mean volume (Bld) [Entitic vol] 8.6 fL 8.1 - 13.5 fL [place] Platelets (Bld) [#/Vol] NOT REPORTED [place] Platelets (Bld) [#/Vol] 335 10*3/uL [place] RBC (Bld) [#/Vol] 3.54 10*6/uL Low 3.95 - 5.1 1 m/uL [place] RBC morphology finding Nom (Bld) NOT REPORTED [place] Segmented neutrophils/100 WBC (Bld) 87 % High 36 - 65 % [place] Segs Absolute 6.52 [place] WBC (Bld) [#/Vol] 7.5 10*3/uL [place] WBC (Bld) [#/Vol] 0.0 10*3/uL 0.0 per 10 0 WBC [place] WBC Morphology NOT REPORTED [place] CBC with Diffon 08-02-2019 Abs. Basophil 0.00 k/uL Normal 0.0-0.2 [facility] Comment on above: Performed By: #### D CITLALY, LIP, CMPX, TROPI, BNP, CDP, PT #### [facility] [address] [place] [address] Vocational Case Manager: Sami Dominguez MD Abs.Imm.Granulocyte 0.00 k/uL Normal 0.00-0.30 [facility] Comment on above: Performed By: #### D CITLALY, LIP, CMPX, TROPI, BNP, CDP, PT #### [facility] [address] [place], [facility] Vocational Case Manager: Sami Dominguez MD Abs.Neutrophil (Seg) 6.52 k/uL Normal 1.50-8.10 [facility] Comment on above: Performed By: #### D CITLALY, LIP, CMPX, TROPI, BNP, CDP, PT #### [facility] [address] [place], [place] [address] Vocational Case Manager: Sami Dominguez MD Basophils/100 WBC (Bld) 0 % Normal 0-2 [facility] Comment on above: Performed By: #### D CITLALY, LIP, CMPX, TROPI, BNP, CDP, PT #### [address] [place] [id number] Vocational Case Manager: Sami Dominguez MD Eosinophils (Bld) [#/Vol] 0.08 10*3/uL Normal 0.00-0.44 [facility] Comment on above: Performed By: #### D CITLALY, LIP, CMPX, TROPI, BNP, CDP, PT #### [address] [place] [id number] Vocational Case Manager: Sami Dominguez MD Eosinophils/100 WBC (Bld) 1 % Normal 1-4 [facility] Comment on above: Performed By: #### D CITLALY, LIP, CMPX, TROPI, BNP, CDP, PT #### [facility] [address] [place], [facility] Vocational Case Manager: Sami Dominguez MD Immature granulocytes (Bld) [#/Vol] 0 % Normal 0 [facility] Comment on above: Performed By: #### D CITLALY, LIP, CMPX, TROPI, BNP, CDP, PT #### [facility] [address] [place], [facility] Vocational Case Manager: Sami Dominguez MD Lymphocytes (Bld) [#/Vol] 0.90 10*3/uL Low 1.10-3.70 [facility] Comment on above: Performed By: #### D CITLALY, LIP, CMPX, TROPI, BNP, CDP, PT #### [facility] [address] [place] [address] Vocational Case Manager: Sami Dominguez MD Lymphocytes/100 WBC (Bld) 12 % Low 24-43 [facility] Comment on above: Performed By: #### D CITLALY, LIP, CMPX, TROPI, BNP, CDP, PT #### [facility] [address] [place], [place] [address] Vocational Case Manager: Sami Dominguez MD Monocytes (Bld) [#/Vol] 0.00 10*3/uL Low 0.10-1.20 [facility] Comment on above: Performed By: #### D CITLALY, LIP, CMPX, TROPI, BNP, CDP, PT #### [facility] [address] [place] [address] Vocational Case Manager: Sami Dominguez MD Monocytes/100 WBC (Bld) 0 % Low 3-12 [facility] Comment on above: Performed By: #### D CITLALY, LIP, CMPX, TROPI, BNP, CDP, PT #### [facility] [address] [place], [place] [address] Vocational Case Manager: Sami Dominguez MD Morphology Geovany (Bld) [Interp] Normal Normal [facility] Comment on above: Performed By: #### D CITLALY, LIP, CMPX, TROPI, BNP, CDP, PT #### [facility] [address] [place], [place] [id number] Vocational Case Manager: Sami Dominguez MD Neutrophil (Seg) 87 % High 36-65 [facility] Comment on above: Performed By: #### D CITLALY, LIP, CMPX, TROPI, BNP, CDP, PT #### [facility] [address] [place] [address] Vocational Case Manager: Sami Dominguez MD Erythrocyte distribution width (RBC) [Ratio] 13.2 % Normal 11.8-14.4 [facility] Comment on above: Performed By: #### D CITLALY, LIP, CMPX, TROPI, BNP, CDP, PT #### [facility] [address] [place] [facility] Vocational Case Manager: Sami Dominguez MD Hematocrit (Bld) [Volume fraction] 33.7 % Low 36.3-47.1 [facility] Comment on above: Performed By: #### D CITLALY, LIP, CMPX, TROPI, BNP, CDP, PT #### [address] [place] [address] Vocational Case Manager: Sami Dominguez MD Hemoglobin (Bld) [Mass/Vol] 10.7 g/dL Low 11.9-15.1 [facility] Comment on above: Performed By: #### D CITLALY, LIP, CMPX, TROPI, BNP, CDP, PT #### [address] [place], [facility] Vocational Case Manager: Sami Dominguez MD MCH (RBC) [Entitic mass] 30.2 pg Normal 25.2-33.5 [facility] Comment on above: Performed By: #### D CITLALY, LIP, CMPX, TROPI, BNP, CDP, PT #### [address] [place] [address] Vocational Case Manager: Sami Dominguez MD MCHC (RBC) [Mass/Vol] 31.8 g/dL Normal 28.4-34.8 [facility] Comment on above: Performed By: #### D CITLALY, LIP, CMPX, TROPI, BNP, CDP, PT #### [address] [place] [address] Vocational Case Manager: Sami Dominguez MD MCV (RBC) [Entitic vol] 95.2 fL Normal 82.6-102.9 [facility] Comment on above: Performed By: #### D CITLALY, LIP, CMPX, TROPI, BNP, CDP, PT #### [facility] [address] [place] [address] Vocational Case Manager: Sami Dominguez MD NRBC Automated 0.0 per 100 WBC Normal 0.0 [facility] Comment on above: Performed By: #### D CITLALY, LIP, CMPX, TROPI, BNP, CDP, PT #### [facility] [address] [place] [address] Vocational Case Manager: Sami Dominguez MD Platelet mean volume (Bld) [Entitic vol] 8.6 fL Normal 8.1-13.5 [facility] Comment on above: Performed By: #### D CITLALY, LIP, CMPX, TROPI, BNP, CDP, PT #### [facility] [address] [place], [facility] Vocational Case Manager: Sami Dominguez MD Platelets (Bld) [#/Vol] 335 10*3/uL Normal 138-453 [facility] Comment on above: Performed By: #### D CITLALY, LIP, CMPX, TROPI, BNP, CDP, PT #### [facility] [address] [place] [address] Vocational Case Manager: Sami Dominguez MD RBC (Bld) [#/Vol] 3.54 10*6/uL Low 3.95-5.11 [facility] Comment on above: Performed By: #### D CITLALY, LIP, CMPX, TROPI, BNP, CDP, PT #### [facility] [address] [place] [address] Vocational Case Manager: Sami Dominguez MD WBC (Bld) [#/Vol] 7.5 10*3/uL Normal 3.5-11.3 [facility] Comment on above: Performed By: #### D CITLALY, LIP, CMPX, TROPI, BNP, CDP, PT #### [facility] [address] [place], [facility] Vocational Case Manager: Sami Dominguez MD Auto Diff Performed NOT REPORTED Normal [facility] Comment on above: Performed By: #### D CITLALY, LIP, CMPX, TROPI, BNP, CDP, PT #### [facility] [address] [place], [facility] Vocational Case Manager: Sami Dominguez MD Platelets (Bld) [#/Vol] NOT REPORTED Normal [facility] Comment on above: Performed By: #### D CITLALY, LIP, CMPX, TROPI, BNP, CDP, PT #### [address] [place], [facility] Vocational Case Manager: Sami Dominguez MD RBC morphology finding Nom (Bld) NOT REPORTED Normal [facility] Comment on above: Performed By: #### D CITLALY, LIP, CMPX, TROPI, BNP, CDP, PT #### [address] [place], [facility] Vocational Case Manager: Sami Dominguez MD WBC Morphology NOT REPORTED Normal [facility] Comment on above: Performed By: #### D CITLALY, LIP, CMPX, TROPI, BNP, CDP, PT #### [address] [place], [facility] Vocational Case Manager: Sami Dominguez MD CTA CHEST ABDOMEN PELVIS W [facility] 08-02-2019 CTA CHEST ABDOMEN PELVIS W CONTRAST [...] Yunier Yang MD 08/02/19 Final result Normal [facility] Moshe, Mhpn Incoming Radiant Results From [employer] - 08/02/2019 1:21 PM EDT EXAMINATION: CTA [...] recommended. Reference: J Am Danika Radiol 2013;10:675-681 [place] EXAMINATION: CTA OF THE CHEST, ABDOMEN [...] and caliber without aneurysmal dilatation or dissection. [place] No evidence for aneurysmal dilatation or dissection of the aorta or its branches. Findings most compatible with polycystic kidney disease. Subtle inflammation adjacent to the descending colon is suggestive of subtle colitis. No perforation or abscess formation. No free intraperitoneal air or fluid. 4.1 cm benign appearing ovarian cyst No follow-up imaging is recommended. Reference: J Am Danika Radiol 2013;10:675-681 [place] Comp Metabolic Pr/rfx MGon 1 (cont.) Normal [facility] Comment on above: Result Comment: Aver age GFR for 40-49 years old: 99 mL/min/1.73sq m Chronic Kidney Disease: <60 mL/min/1.73sq m Kidney failure: <15 mL/min/1.73sq m eGFR calculated using average adult body mass. Additional eGFR calculator available at: http://www.[employer]/multiple_crcl_2012.htm Performed By: #### D CITLALY, LIP, CMPX, TROPI, BNP, CDP, PT #### [facility] [address] [place], [place] [id number] Vocational Case Manager: Sami Dominguez MD Albumin [Mass/Vol] 4.4 g/dL Normal 3.5-5.2 [facility] Comment on above: Performed By: #### D CITLALY, LIP, CMPX, TROPI, BNP, CDP, PT #### [facility] [address] [place], [place] [id number] Vocational Case Manager: Sami Dominguez MD Albumin/Globulin [Mass ratio] 1.0 {ratio} Normal 1.0-2.5 [facility] Comment on above: Performed By: #### D CITLALY, LIP, CMPX, TROPI, BNP, CDP, PT #### [facility] [address] [place], [place] [id number] Vocational Case Manager: Sami Dominguez MD Alkaline Phos 98 U/L Normal 35-104 [facility] Comment on above: Performed By: #### D CITLALY, LIP, CMPX, TROPI, BNP, CDP, PT #### [facility] [address] [place], [place] [id number] Vocational Case Manager: Sami Dominguez MD ALT [Catalytic activity/Vol] 16 U/L Normal 5-33 [facility] Comment on above: Performed By: #### D CITLALY, LIP, CMPX, TROPI, BNP, CDP, PT #### [facility] [address] [place], [place] [id number] Vocational Case Manager: Sami Dominguez MD Anion gap [Moles/Vol] 18 mmol/L High 9-17 [facility] Comment on above: Performed By: #### D CITLALY, LIP, CMPX, TROPI, BNP, CDP, PT #### [facility] [address] [place] [address] Vocational Case Manager: Sami Dominguez MD AST [Catalytic activity/Vol] 18 U/L Normal <32 [facility] Comment on above: Performed By: #### D CITLALY, LIP, CMPX, TROPI, BNP, CDP, PT #### [facility] [address] [place] [address] Vocational Case Manager: Smai Dominguez MD Bilirubin Ql (U) 0.31 mg/dL Normal 0.3-1.2 [facility] Comment on above: Performed By: #### D CITLALY, LIP, CMPX, TROPI, BNP, CDP, PT #### [facility] [address] [place], [place] [id number] Vocational Case Manager: Sami Dominguez MD BUN/CRE Ratio 13 Normal 9-20 [facility] Comment on above: Performed By: #### D CITLALY, LIP, CMPX, TROPI, BNP, CDP, PT #### [address] [place], [place] [id number] Vocational Case Manager: Sami Dominguez MD Calcium [Mass/Vol] 9.7 mg/dL Normal 8.6-10.4 [facility] Comment on above: Performed By: #### D CITLALY, LIP, CMPX, TROPI, BNP, CDP, PT #### [address] [place] [address] Vocational Case Manager: Sami Dominguez MD Chloride [Moles/Vol] 95 mmol/L Low 98-107 [facility] Comment on above: Performed By: #### D CITLALY, LIP, CMPX, TROPI, BNP, CDP, PT #### [facility] [address] [place], [place] [phone] Vocational Case Manager: Sami Dominguez MD CO2 [Moles/Vol] 18 mmol/L Low 20-31 [facility] Comment on above: Performed By: #### D CITLALY, LIP, CMPX, TROPI, BNP, CDP, PT #### [facility] [address] [place] [address] Vocational Case Manager: Sami Dominguez MD Creatinine [Mass/Vol] 3.07 mg/dL High 0.50-0.90 [facility] Comment on above: Performed By: #### D CITLALY, LIP, CMPX, TROPI, BNP, CDP, PT #### [facility] [address] [place] [address] Vocational Case Manager: Sami Dominguez MD GFR, Amer 20 mL/min Low >60 [facility] Comment on above: Performed By: #### D CITLALY, LIP, CMPX, TROPI, BNP, CDP, PT #### [facility] [address] [place] [address] Vocational Case Manager: Sami Dominguez MD GFR,non Amer 17 mL/min Low >60 [facility] Comment on above: Performed By: #### D CITLALY, LIP, CMPX, TROPI, BNP, CDP, PT #### [address] [place] [address] Vocational Case Manager: Sami Dominguez MD Glucose [Mass/Vol] 89 mg/dL Normal 70-99 [facility] Comment on above: Performed By: #### D CITLALY, LIP, CMPX, TROPI, BNP, CDP, PT #### [address] [place] [address] Vocational Case Manager: Sami Dominguez MD Potassium [Moles/Vol] 3.9 mmol/L Normal 3.7-5.3 [facility] Comment on above: Performed By: #### D CITLALY, LIP, CMPX, TROPI, BNP, CDP, PT #### [address] [place] [address] Vocational Case Manager: Sami Dominguez MD Protein [Mass/Vol] 8.8 g/dL High 6.4-8.3 [facility] Comment on above: Performed By: #### D CITLALY, LIP, CMPX, TROPI, BNP, CDP, PT #### [address] [place] [address] Vocational Case Manager: Sami Dominguez MD Sodium [Moles/Vol] 131 mmol/L Low 135-144 [facility] Comment on above: Performed By: #### D CITLALY, LIP, CMPX, TROPI, BNP, CDP, PT #### [facility] [address] [place] [address] Vocational Case Manager: Sami Dominguez MD Staging: Normal [facility] Comment on above: Result Comment: Stag e 1: Some kidney damage normal GFR Stage 2: Mild kidney damage GFR 60-89 Stage 3: Moderate kidney damage GFR 30-59 Stage 4: Severe kidney damage GFR 15-29 Stage 5: Severe kidney damage GFR <15 ESRD - chronic treatment by dialysis or transplant Performed By: #### D CITLALY, LIP, CMPX, TROPI, BNP, CDP, PT #### [facility] [address] [place] [address] Vocational Case Manager: Sami Dominguez MD Urea nitrogen [Mass/Vol] 39 mg/dL High 6-20 [facility] Comment on above: Performed By: #### D CITLALY, LIP, CMPX, TROPI, BNP, CDP, PT #### [facility] [address] [place] [address] Vocational Case Manager: Sami Dominguez MD Comprehensive Metabolic Pane l w/ Reflex to MGon 08-02-2019 Albumin [Mass/Vol] 4.4 g/dL 3.5 - 5.2 g/dL [place] Albumin/Globulin [Mass ratio] 1.0 {ratio} [place] ALP [Catalytic activity/Vol] 98 U/L 35 - 104 U/L [place] ALT [Catalytic activity/Vol] 16 U/L 5 - 33 U/L [place] Anion gap [Moles/Vol] 18 mmol/L High 9 - 17 mmol/L [place] AST [Catalytic activity/Vol] 18 U/L <32 [place] Bilirubin Ql (U) 0.31 mg/dL 0.3 - 1.2 mg/dL [place] Bun/Cre Ratio 13 [place] Calcium [Mass/Vol] 9.7 mg/dL 8.6 - 10. 4 mg/dL [place] Chloride [Moles/Vol] 95 mmol/L Low 98 - 10 7 mmol/L [place] CO2 [Moles/Vol] 18 mmol/L Low 20 - 31 mmol/L [place] Creatinine [Mass/Vol] 3.07 mg/dL High 0.5 - 0.9 mg/dL [place] GFR 20 mL/min Low >60 [place] GFR Non- 17 mL/min Low >60 [place] Glucose [Mass/Vol] 89 mg/dL 70 - 99 mg/dL [place] Interpretation and review of laboratory results Abnormal [place] Potassium [Moles/Vol] 3.9 mmol/L 3.7 - 5.3 mmol/L [place] Protein [Mass/Vol] 8.8 g/dL High 6.4 - 8.3 g/dL [place] Sodium [Moles/Vol] 131 mmol/L Low 135 - 144 mmol/L [place] Urea nitrogen [Mass/Vol] 39 mg/dL High 6 - 20 mg/dL [place] D-Dimer Teston 08-02-2019 D-Dimer Test 1.15 mg/L FEU High 0.19-0.50 [facility] Comment on above: Result Comment: Elevated [...] LIP, CMPX, TROPI, BNP, CDP, PT #### [facility] [address] [place] [address] Vocational Case Manager: Sami Dominguez MD D-Dimer, Quantitativeon 07-07 D-Dimer, Quant 1.15 [place] Comment on above: Elevated levels of [...] Interpretation and review of laboratory results Abnormal [place] Lactate, Sepsison 08-02-2019 Lactic Acid, Sepsis 3.6 mmol/L High 0.5-1.9 [facility] Comment on above: Performed By: #### L ACDS #### [facility] [address] [place] [address] [place] [address] Vocational Case Manager: Sami Dominguez MD Lactic Acid,Sep Wbld NOT REPORTED Normal 0.5-1.9 [facility] Comment on above: Performed By: #### L ACDS #### [facility] [address] [place] [address] [place] [address] Vocational Case Manager: Sami Dominguez MD Interpretation and review of laboratory results Abnormal [place] Lactic Acid, Sepsis 3.6 mmol/L High 0.5 - 1. 9 mmol/L [place] Lactic Acid, Sepsis, Whole Blood NOT REPORTED 0.5 - 1.9 mmol/L [place] Lactic Acidon 08-02-2019 Lactate [Moles/Vol] 1.0 mmol/L Normal 0.5-2.2 [facility] Comment on above: Performed By: #### D CITLALY, LIP, CMPX, TROPI, BNP, CDP, PT #### [facility] [address] [place] [address] Vocational Case Manager: Sami Dominguez MD Lactate [Moles/Vol] NOT REPORTED Normal 0.7-2.1 [facility] Comment on above: Performed By: #### D CITLALY, LIP, CMPX, TROPI, BNP, CDP, PT #### [facility] [facility] [address] [place] [address] Vocational Case Manager: Sami Dominguez MD Lactic Acid, Plasmaon 2018 Lactate [Moles/Vol] 1 mmol/L 0.5 - 2. 2 mmol/L [place] Lactic Acid, Whole Blood NOT REPORTED 0.7 - 2.1 mmol/L [place] Lipaseon 08-02-2019 Lipase [Catalytic activity/Vol] 38 U/L Normal 13-60 [facility] Comment on above: Performed By: #### D CITLALY, LIP, CMPX, TROPI, BNP, CDP, PT #### [facility] [address] [place], [place] [id number] Vocational Case Manager: Sami Dominguez MD Lipase [Catalytic activity/Vol] 38 U/L 13 - 60 U/L [place] Metabolic Panelon 08-02-2019 GFR/1.73 sq M predicted among non-blacks MDRD (S/P/Bld) [Vol rate/Area] [place] Comment on above: Stage 1: Some [...] body mass. Additional eGFR calculator available at: http://www.Livem[employer].com/multiple_crcl_2012.htm Microscopic Urinalysison Amorphous, UA NOT REPORTED None [place] Bacteria, UA 1+ Abnormal None [place] Casts UA NOT REPORTED /LPF [place] Crystals UA NOT REPORTED None /HPF [place] Epithelial Cells UA 2 TO 5 [place] Interpretation and review of laboratory results Abnormal [place] Mucus, UA NOT REPORTED None [place] Other Observations UA NOT REPORTED NOT REQ. [place] RBC (U) [#/Vol] None [place] Renal Epithelial, Urine NOT REPORTED 0 /HPF [place] Trichomonas, UA NOT REPORTED None [place] WBC, UA 50 TO 100 [place] Yeast, UA NOT REPORTED None [place] PTon 08-02-2019 INR Coag (PPP) [Relative time] 1.0 {INR} Normal 0.9-1.2 [facility] Comment on above: Performed By: #### D CITLALY, LIP, CMPX, TROPI, BNP, CDP, PT #### [facility] [address] [place] [address] Vocational Case Manager: Sami Dominguez MD PT Coag (PPP) [Time] 10.0 s Normal 9.7-12.2 [facility] Comment on above: Performed By: #### D CITLALY, LIP, CMPX, TROPI, BNP, CDP, PT #### [facility] [address] [place] [address] Vocational Case Manager: Sami Dominguez MD Protime-INRon 08-02-2019 INR Coag (PPP) [Relative time] 1.0 {INR} [place] PT Coag (PPP) [Time] 10 s [place], [place] Troponinon 08-02-2019 Troponin I.cardiac [Mass/Vol] ng/mL Normal <0.03 [facility] Comment on above: Result Comment: Trop onin T results cannot be compared to Troponin-I results. Performed By: #### D CITLALY, LIP, CMPX, TROPI, BNP, CDP, PT #### [facility] [address] [place] [address] Vocational Case Manager: Sami Dominguez MD Troponin I.cardiac [Mass/Vol] Normal [facility] Comment on above: Result Comment: Refe [...] LIP, CMPX, TROPI, BNP, CDP, PT #### [facility] [address] [place] [address] Vocational Case Manager: Sami Dominguez MD Troponin I.cardiac [Mass/Vol] NOT REPORTED Normal 0-14 [facility] Comment on above: Performed By: #### D CITLALY, LIP, CMPX, TROPI, BNP, CDP, PT #### [facility] [address] [place] [address] Vocational Case Manager: Sami Dominguez MD Troponin I.cardiac [Mass/Vol] [place] Comment on above: Reference Range: <0.03 [...] diagnosis. Troponin T.cardiac [Mass/Vol] ug/L <0.03 ng/mL [place] Comment on above: Troponin T results c annot be compared to Troponin-I results. Troponin, High Sensitivity NOT REPORTED 0 - 14 ng/L [place] Troponin I.cardiac [Mass/Vol] ng/mL Normal <0.03 [facility] Comment on above: Result Comment: Trop onin T results cannot be compared to Troponin-I results. Performed By: #### D CITLALY, LIP, CMPX, TROPI, BNP, CDP, PT #### [facility] [address] [place] [address] Vocational Case Manager: Sami Dominguez MD Troponin I.cardiac [Mass/Vol] Normal [facility] Comment on above: Result Comment: Refe [...] LIP, CMPX, TROPI, BNP, CDP, PT #### [facility] [address] [place] [address] Vocational Case Manager: Sami Dominguez MD Troponin I.cardiac [Mass/Vol] NOT REPORTED Normal 0-14 [facility] Comment on above: Performed By: #### D CITLALY, LIP, CMPX, TROPI, BNP, CDP, PT #### [facility] [address] [place] [address] Vocational Case Manager: Sami Dominguez MD Troponin I.cardiac [Mass/Vol] [place] Comment on above: Reference Range: <0.03 [...] diagnosis. Troponin T.cardiac [Mass/Vol] ug/L <0.03 ng/mL [place] Comment on above: Troponin T results c annot be compared to Troponin-I results. Troponin, High Sensitivity NOT REPORTED 0 - 14 ng/L [place] UA w/Reflex Cultureon 2018 Acetoacetic Acid,Ur Negative Normal NEG [facility] Comment on above: Performed By: #### D CITLALY, LIP, CMPX, TROPI, BNP, CDP, PT #### [facility] [address] [place], [place] [id number] Vocational Case Manager: Sami Dominguez MD Bilirubin, SemiQt,Ur Negative Normal [facility] Comment on above: Performed By: #### D CITLALY, LIP, CMPX, TROPI, BNP, CDP, PT #### [facility] [address] [place], [place] [id number] Vocational Case Manager: Sami Dominguez MD Color (U) YELLOW Normal YEL [facility] Comment on above: Performed By: #### D CITLALY, LIP, CMPX, TROPI, BNP, CDP, PT #### [facility] [address] [place], [place] [phone] Vocational Case Manager: Sami Dominguez MD Glucose Ql (U) Negative Normal [facility] Comment on above: Performed By: #### D CITLALY, LIP, CMPX, TROPI, BNP, CDP, PT #### [facility] [address] [place] [address] Dr[place], [place] [phone] Vocational Case Manager: Sami Dominguez MD Hemoglobin, Ur 1+ Abnormal [facility] Comment on above: Performed By: #### D CITLALY, LIP, CMPX, TROPI, BNP, CDP, PT #### [address] [place], [place] [phone] Vocational Case Manager: Sami Dominguez MD Leukocyte esterase Test strip Ql (U) MODERATE Abnormal [facility] Comment on above: Performed By: #### D CITLALY, LIP, CMPX, TROPI, BNP, CDP, PT #### [facility] [address] [place], [place] [id number] Vocational Case Manager: Sami Dominguez MD Nitrite,Ur Negative Normal [facility] Comment on above: Performed By: #### D CITLALY, LIP, CMPX, TROPI, BNP, CDP, PT #### [facility] [address] [place], [place] [phone] Vocational Case Manager: Sami Dominguez MD pH (U) 6.0 [pH] Normal 5.0-9.0 [facility] Comment on above: Performed By: #### D CITLALY, LIP, CMPX, TROPI, BNP, CDP, PT #### [facility] [address] [place], [place] [phone] Vocational Case Manager: Sami Dominguez MD Protein Ql (U) TRACE Abnormal NEG [facility] Comment on above: Performed By: #### D CITLALY, LIP, CMPX, TROPI, BNP, CDP, PT #### [facility] [address] [place], [place] [phone] Vocational Case Manager: Sami Dominguez MD Specific gravity (U) [Rel density] 1.010 Normal 1.010-1.020 [facility] Comment on above: Performed By: #### D CITLALY, LIP, CMPX, TROPI, BNP, CDP, PT #### [facility] [address] [place], [place] [phone] Vocational Case Manager: Sami Dominguez MD Turbidity CLEAR Normal CLEAR [facility] Comment on above: Performed By: #### D CITLALY, LIP, CMPX, TROPI, BNP, CDP, PT #### [facility] [address] [place], [place] [phone] Vocational Case Manager: Sami Dominguez MD Urobilinogen,Ur Normal Normal NORM [facility] Comment on above: Performed By: #### D CITLALY, LIP, CMPX, TROPI, BNP, CDP, PT #### [facility] [address] [place], [place] [phone] Vocational Case Manager: Sami Dominguez MD Comment NOT REPORTED Normal [facility] Comment on above: Performed By: #### D CITLALY, LIP, CMPX, TROPI, BNP, CDP, PT #### [facility] [address] [place], [place] [phone] Vocational Case Manager: Sami Dominguez MD Urinalysis Reflex to Culture on 08-02-2019 Bilirubin Urine Negative NEGATIVE [place] Color, UA YELLOW YELLOW [place] Glucose, Ur Negative NEGATIVE [place] Interpretation and review of laboratory results Abnormal [place] Ketones Ql (U) Negative NEGATIVE [place] Leukocyte esterase Test strip Ql (U) MODERATE Abnormal NEGATIVE [place] Nitrite, Urine Negative NEGATIVE [place] pH, UA 6.0 [place] Protein (U) [Mass/Vol] TRACE Abnormal NEGATIVE Me [place], [place] Specific [place], UA 1.010 [place], [place] Turbidity UA CLEAR CLEAR [place] Urinalysis Comments NOT REPORTED [place] Urine Hgb 1+ Abnormal NEGATIVE [place] Urobilinogen, Urine Normal Normal [place] Urinalysis,Microon 9 ----- Normal [facility] Comment on above: Performed By: #### D CITLALY, LIP, CMPX, TROPI, BNP, CDP, PT #### [facility] [address] [place] [address] [place] [address] Vocational Case Manager: Sami Dominguez MD Bacteria LM.HPF (Urine sed) [#/Area] 1+ Abnormal NONE [facility] Comment on above: Performed By: #### D CITLALY, LIP, CMPX, TROPI, BNP, CDP, PT #### [address] [place] [address] Vocational Case Manager: Sami Dominguez MD Epithelial cells LM.HPF (Urine sed) [#/Area] 2 TO 5 Normal 0-25 [facility] Comment on above: Performed By: #### D CITLALY, LIP, CMPX, TROPI, BNP, CDP, PT #### [address] [place] [address] Vocational Case Manager: Sami Dominguez MD RBC (U) [#/Vol] None Normal 0-2 [facility] Comment on above: Performed By: #### D CITLALY, LIP, CMPX, TROPI, BNP, CDP, PT #### [facility] [address] [place], [id number] Vocational Case Manager: Sami Dominguez MD WBC (U) [#/Vol] 50 TO 100 Normal 0-5 [facility] Comment on above: Performed By: #### D CITLALY, LIP, CMPX, TROPI, BNP, CDP, PT #### [facility] [address] [place], [id number] Vocational Case Manager: Sami Dominguez MD Amorphous sediment LM Ql (Urine sed) NOT REPORTED Normal NONE [facility] Comment on above: Performed By: #### D CITLALY, LIP, CMPX, TROPI, BNP, CDP, PT #### [facility] [address] [place] [id number] Vocational Case Manager: Sami Dominguez MD Casts LM.LPF (Urine sed) [#/Area] NOT REPORTED Normal [facility] Comment on above: Performed By: #### D CITLALY, LIP, CMPX, TROPI, BNP, CDP, PT #### [address] [place], [place] [address] Vocational Case Manager: Sami Dominguez MD Crystals LM Nom (Urine sed) NOT REPORTED Normal [facility] Comment on above: Performed By: #### D CITLALY, LIP, CMPX, TROPI, BNP, CDP, PT #### [facility] [address] [place], [place] [address] Vocational Case Manager: Sami Dominguez MD Epithelial, Renal NOT REPORTED Normal 0 [facility] Comment on above: Performed By: #### D CITLALY, LIP, CMPX, TROPI, BNP, CDP, PT #### [facility] [address] [place], [id number] Vocational Case Manager: Sami Dominguez MD Mucus Strands NOT REPORTED Normal NONE [facility] Comment on above: Performed By: #### D CITLALY, LIP, CMPX, TROPI, BNP, CDP, PT #### [facility] [address] [place], [place] [phone] Vocational Case Manager: Sami Dominguez MD Other Observations NOT REPORTED Normal [facility] Comment on above: Performed By: #### D CITLALY, LIP, CMPX, TROPI, BNP, CDP, PT #### [facility] [address] [place] [phone] Vocational Case Manager: Sami Dominguez MD Trichomonas NOT REPORTED Normal NONE [facility] Comment on above: Performed By: #### D CITLALY, LIP, CMPX, TROPI, BNP, CDP, PT #### [facility] [address] [place] [phone] Vocational Case Manager: Sami Dominguez MD Yeast LM Ql (Urine sed) NOT REPORTED Normal NONE [facility] Comment on above: Performed By: #### D CITLALY, LIP, CMPX, TROPI, BNP, CDP, PT #### [facility] [address] [place] [phone] Vocational Case Manager: Sami Dominguez MD XR CHEST PORTABLEon [...] Cullen Ngo MD 08/02/19 Final result Normal [facility] EXAMINATION: ONE XRA Y VIEW OF THE CHEST 08/02/2019 12:59 pm COMPARISON: None. HISTORY: ORDERING SYSTEM PROVIDED HISTORY: CP TECHNOLOGIST PROVIDED HISTORY: CP FINDINGS: Heart size and pulmonary vessels are within normal limits. Lungs are clear. No focal infiltrates or significant pleural effusions are seen. There is no acute osseous abnormality. Monitor leads overlie the chest. [facility] [place] No acute cardiopulmo nary process. [place] Moshe, [facility] Incoming Radiant Results From [employer] - 08/02/2019 1:10 PM EDT EXAMINATION: ONE [...] the chest. IMPRESSION: No acute cardiopulmonary process. [place] Vital Signs Date Time Vital Sign Value Performing Clinician Facility 01-03-2025 14:24-0400 Body mass index (BMI) [Ratio] 34.77 kg/m2 Ming Espinoza DO Work Phone: [facility] 01-03-2025 14:24-0400 Body weight 83.46 kg Ming Espinoza DO Work Phone: [facility] 01-03-2025 14:24-0400 Diastolic blood pressure 82 mm[Hg] Ming Espinoza DO Work Phone: [facility] 01-03-2025 14:24-0400 Heart rate 78 /min Ming Espinoza DO Work Phone: [facility] 01-03-2025 14:24-0400 SaO2% (BldA) [Mass fraction] 97 % Ming Espinoza DO Work Phone: [facility] 01-03-2025 14:24-0400 Systolic blood pressure 124 mm[Hg] Ming Espinoza DO Work Phone: [facility] 10-01-2024 08:19-0500 Body height 154.9 cm Ming Espinoza DO Work Phone: [facility] 10-01-2024 08:19-0500 Body mass index (BMI) [Ratio] 34.2 kg/m2 Ming Espinoza DO Work Phone: [facility] 10-01-2024 08:19-0500 Body weight 82.1 kg Minglizz Espinoza DO Work Phone: [facility] 10-01-2024 08:19-0500 Diastolic blood pressure 60 mm[Hg] Ming Espinoza DO Work Phone: [facility] 10-01-2024 08:19-0500 Heart rate 88 /min Ming Espinoza DO Work Phone: [facility] 10-01-2024 08:19-0500 SaO2% (BldA) [Mass fraction] 98 % Ming Espinoza DO Work Phone: [facility] 10-01-2024 08:19-0500 Systolic blood pressure 124 mm[Hg] Ming Espinoza DO Work Phone: [facility] 07-27-2024 08:34-0400 Body temperature 97.81 [degF] Lucero Didion ESTATE PLANNING ATTORNEY Work Phone: [facility] 07-27-2024 08:34-0400 Diastolic blood pressure 74 mm[Hg] Lucero Didion ESTATE PLANNING ATTORNEY Work Phone: [facility] 07-27-2024 08:34-0400 Heart rate 83 /min Lucero Didion ESTATE PLANNING ATTORNEY Work Phone: [facility] 07-27-2024 08:34-0400 SaO2% (BldA) [Mass fraction] 98 % Lucero Didion ESTATE PLANNING ATTORNEY Work Phone: [facility] 07-27-2024 08:34-0400 Systolic blood pressure 118 mm[Hg] Lucero Didion ESTATE PLANNING ATTORNEY Work Phone: [facility] 03-15-2024 17:34-0400 Body height 157.48 cm REHAB PHYSICIAN Andreia Jerry Work Phone: [facility] 03-15-2024 17:34-0400 Body mass index (BMI) [Ratio] 31.8 kg/m2 REHAB PHYSICIAN Andreia Jerry Work Phone: [facility] 03-15-2024 17:34-0400 Body temperature 100.3 [degF] REHAB PHYSICIAN Andreia Jerry Work Phone: [facility] 03-15-2024 17:34-0400 Body weight 78.92 kg REHAB PHYSICIAN Andreia Jerry Work Phone: [facility] 03-15-2024 17:34-0400 Diastolic blood pressure 79 mm[Hg] REHAB PHYSICIAN Andreia Jerry Work Phone: [facility] 03-15-2024 17:34-0400 Heart rate 88 /min REHAB PHYSICIAN Andreia Jerry Work Phone: [facility] 03-15-2024 17:34-0400 Respiratory rate 18 /min REHAB PHYSICIAN Andreia Jerry Work Phone: [facility] 03-15-2024 17:34-0400 SaO2% (BldA) [Mass fraction] 96 % REHAB PHYSICIAN Andreia Jerry Work Phone: [facility] 03-15-2024 17:34-0400 Systolic blood pressure 121 mm[Hg] REHAB PHYSICIAN Andreia Jerry Work Phone: [facility] 07-30-2022 17:40-0400 Body height 157.48 cm Yaneth Toni Other [employer] Other 07-30-2022 17:40-0400 Body mass index (BMI) [Ratio] 36.69 kg/m2 Yaneth Toni Other [employer] Other 07-30-2022 17:40-0400 Body temperature 97.4 [degF] Yaneth Toni Other [employer] Other 07-30-2022 17:40-0400 Body weight 90.99 kg Yaneth Toni Other [employer] Other 07-30-2022 17:40-0400 Diastolic blood pressure 85 mm[Hg] Yaneth Toni Other [employer] Other 07-30-2022 17:40-0400 Respiratory rate 18 /min Yaneth Toni Other [employer] Other 07-30-2022 17:40-0400 SaO2% (BldA) [Mass fraction] 99 % Yaneth Toni Other [employer] Other 07-30-2022 17:40-0400 Systolic blood pressure 124 mm[Hg] Yaneth Toni Other [employer] Other 07-03-2022 09:45-0400 Body height 157.48 cm Estefania Camarillogary Other [employer] Other 07-03-2022 09:45-0400 Body mass index (BMI) [Ratio] 36.76 kg/m2 Estefania Camarillogary Other [employer] Other 07-03-2022 09:45-0400 Body temperature 97 [degF] Estefania Camarillogary Other [employer] Other 07-03-2022 09:45-0400 Body weight 91.17 kg Estefania Camarillogary Other [employer] Other 07-03-2022 09:45-0400 Diastolic blood pressure 60 mm[Hg] Estefania Camarillogary Other [employer] Other 07-03-2022 09:45-0400 SaO2% (BldA) [Mass fraction] 99 % Estefania Camarillogary Other [employer] Other 07-03-2022 09:45-0400 Systolic blood pressure 110 mm[Hg] Estefania Vo Other [facility] [employer] Other 06-20-2022 16:10-0400 Diastolic blood pressure 68 mm[Hg] DO Ming Alexis Work Phone: [facility] 06-20-2022 16:10-0400 Heart rate 69 /min DO Ming Alexis Work Phone: [facility] 06-20-2022 16:10-0400 Respiratory rate 18 /min DO Ming Alexis Work Phone: [facility] 06-20-2022 16:10-0400 SaO2% (BldA) [Mass fraction] 100 % DO Ming Alexis Work Phone: [facility] 06-20-2022 16:10-0400 Systolic blood pressure 126 mm[Hg] DO Ming Alexis Work Phone: [facility] 06-20-2022 13:15-0400 Body height 157.48 cm DO Ming Alexis Work Phone: [facility] 06-20-2022 13:15-0400 Body temperature 98.6 [degF] DO Ming Alexis Work Phone: [facility] 06-20-2022 13:15-0400 Body weight 91.5 kg DO Ming Alexis Work Phone: [facility] 06-18-2022 10:45-0400 Diastolic blood pressure 79 mm[Hg] DO Ming Alxeis Work Phone: [facility] 06-18-2022 10:45-0400 Heart rate 66 /min DO Ming Alexis Work Phone: [facility] 06-18-2022 10:45-0400 Respiratory rate 16 /min DO Ming Alexis Work Phone: [facility] 06-18-2022 10:45-0400 SaO2% (BldA) [Mass fraction] 100 % DO Ming Espinoza Work Phone: [facility] 06-18-2022 10:45-0400 Systolic blood pressure 130 mm[Hg] DO Ming Espinoza Work Phone: [facility] 06-18-2022 08:08-0400 Body mass index (BMI) [Ratio] 37.8 kg/m2 DO Ming Espinoza Work Phone: [facility] 06-18-2022 07:41-0400 Body height 157.48 cm DO Ming Espinoza Work Phone: [facility] 06-18-2022 07:41-0400 Body weight 93.89 kg DO Ming Espinoza Work Phone: [facility] 06-18-2022 06:26-0400 Body temperature 98.5 [degF] DO Ming Espinoza Work Phone: [facility] 05-30-2022 11:00-0400 Body height 157.48 cm Jesus Parham Other [employer] Other 05-30-2022 11:00-0400 Body mass index (BMI) [Ratio] 36.76 kg/m2 Jesus Parham Other [employer] Other 05-30-2022 11:00-0400 Body temperature 97.6 [degF] Jesus Parham Other [employer] Other 05-30-2022 11:00-0400 Body weight 91.17 kg Jesus Parham Other [employer] Other 05-30-2022 11:00-0400 Diastolic blood pressure 76 mm[Hg] Jesus Parham Other [employer] Other 05-30-2022 11:00-0400 SaO2% (BldA) [Mass fraction] 98 % Jesus Langjaclyn Other [employer] Other 05-30-2022 11:00-0400 Systolic blood pressure 128 mm[Hg] Jesus Dione Other [employer] Other 05-02-2022 14:40-0400 Body height 157.48 cm Yaneth Toni Other [employer] Other 05-02-2022 14:40-0400 Body mass index (BMI) [Ratio] 36.76 kg/m2 Yaneth Toni Other [employer] Other 05-02-2022 14:40-0400 Body temperature 97.7 [degF] Yaneth Toni Other [employer] Other 05-02-2022 14:40-0400 Body weight 91.17 kg Yaneth Toni Other [employer] Other 05-02-2022 14:40-0400 Diastolic blood pressure 88 mm[Hg] Yaneth Toni Other [employer] Other 05-02-2022 14:40-0400 Respiratory rate 18 /min Yaneth Toni Other [employer] Other 05-02-2022 14:40-0400 SaO2% (BldA) [Mass fraction] 98 % Yaneth Toni Other [employer] Other 05-02-2022 14:40-0400 Systolic blood pressure 121 mm[Hg] Yaneth Toni Other [employer] Other 04-30-2022 10:10-0400 Body height 157.48 cm Dipika Stinson Other [employer] Other 04-30-2022 10:10-0400 Body mass index (BMI) [Ratio] 37.86 kg/m2 Dipika Stinson Other [employer] Other 04-30-2022 10:10-0400 Body temperature 97.4 [degF] Dipika Stinson Other [employer] Other 04-30-2022 10:10-0400 Body weight 93.9 kg Dipika Stinson Other [employer] Other 04-30-2022 10:10-0400 Diastolic blood pressure 80 mm[Hg] Dipika Stinson Other [employer] Other 04-30-2022 10:10-0400 Respiratory rate 16 /min Dipika Stinson Other [employer] Other 04-30-2022 10:10-0400 SaO2% (BldA) [Mass fraction] 100 % Dipika Stinson Other [employer] Other 04-30-2022 10:10-0400 Systolic blood pressure 117 mm[Hg] Dipika Juniorault Other [employer] Other 04-01-2022 09:13-0400 Diastolic blood pressure 62 mm[Hg] DO Ming Espinoza Work Phone: [facility] 04-01-2022 09:13-0400 Heart rate 83 /min DO Ming Espinoza Work Phone: [facility] 04-01-2022 09:13-0400 Respiratory rate 16 /min DO Ming Espinoza Work Phone: [facility] 04-01-2022 09:13-0400 SaO2% (BldA) [Mass fraction] 97 % DO Ming Espinoza Work Phone: [facility] 04-01-2022 09:13-0400 Systolic blood pressure 101 mm[Hg] DO Ming Espinoza Work Phone: [facility] 04-01-2022 07:23-0400 Body height 157.48 cm DO Ming Espinoza Work Phone: [facility] 04-01-2022 07:23-0400 Body mass index (BMI) [Ratio] 37.8 kg/m2 DO Ming Espinoza Work Phone: [facility] 04-01-2022 07:23-0400 Body temperature 97.8 [degF] DO Ming Espinoza Work Phone: [facility] 04-01-2022 07:23-0400 Body weight 93.89 kg DO Ming Espinoza Work Phone: [facility] 12-06-2021 16:20-0500 Body height 157.48 cm Yaneth Toni Other [facility] [employer] Other 12-06-2021 16:20-0500 Body mass index (BMI) [Ratio] 37.86 kg/m2 Yaneth Toni Other [employer] Other 12-06-2021 16:20-0500 Body weight 93.9 kg Yaneth Toni Other [employer] Other 12-06-2021 16:20-0500 Diastolic blood pressure 89 mm[Hg] Yaneth Toni Other [employer] Other 12-06-2021 16:20-0500 Respiratory rate 18 /min Yaneth Toni Other [employer] Other 12-06-2021 16:20-0500 SaO2% (BldA) [Mass fraction] 97 % Yaneth Toni Other [employer] Other 12-06-2021 16:20-0500 Systolic blood pressure 134 mm[Hg] Yaneth Toni Other [employer] Other 08-02-2019 16:35-0400 Body Temperature 99.3 [degF] [facility] [place] 08-02-2019 16:27-0400 Pulse (Heart Rate) 110 /min [place], [place] 08-02-2019 16:27-0400 Pulse Oximetry 98 % [place], [place] 08-02-2019 16:27-0400 Respiratory Rate 14 /[facility] [place] [place] 08-02-2019 16:16-0400 BP Diastolic 56 mm[Hg] [place] 08-02-2019 16:16-0400 BP Systolic 97 mm[Hg] [place] 08-02-2019 14:59-0400 BMI (Body Mass Index) 37.79 kg/m2 [place], [place] 08-02-2019 14:59-0400 Body weight 90.72 kg [place] 08-02-2019 14:59-0400 Height 154.9 cm [place] Encounters Encounter Date Encounter Type Care Provider Facility Start: 03-03-2025 End: 03-03-2025 Clinisync Result Encounter Generic External Data Provider [facility] External Department Unsolicited Start: 03-03-2025 End: 03-03-2025 Clinisync Result Encounter Generic External Data Provider [facility] External Department Unsolicited Start: 01-29-2025 End: 01-29-2025 Clinisync Result Encounter Generic External Data Provider [facility] External Department Unsolicited Start: 01-29-2025 End: 01-29-2025 Clinisync Result Encounter Generic External Data Provider [facility] External Department Unsolicited Start: 01-03-2025 End: 01-03-2025 Office outpatient visit 25 minutes Ming Espinoza DO Work Phone: [facility] Comment on above: Polycystic kidney di sease (Primary Dx); Anemia of renal disease; Immunosuppressive management encounter following kidney transplant (CMS/HCC); Renal transplant recipient ([facility]); Type 2 diabetes mellitus with stage 3a chronic kidney disease, without long-term current use of insulin (HCC) (CMS/[facility]); Dyslipidemia ([facility]/HCC) Start: 01-03-2025 End: 01-03-2025 ambulatory MING ESPINOZA Not Available Start: 12-03-2024 End: 12-03-2024 Clinisync Result Encounter Generic External Data Provider [facility] External Department Unsolicited Start: 12-03-2024 End: 12-03-2024 Clinisync Result Encounter Generic External Data Provider [facility] External Department Unsolicited Start: 11-12-2024 End: 11-12-2024 ambulatory LEO [facility] Start: 11-04-2024 End: 11-07-2024 Clinisync Result Encounter [...] 10-14-2024 ambulatory Ming Espinoza DO Work Phone: [facility] Work Phone: Start: 10-14-2024 End: 10-14-2024 Departed Referred Ming Espinoza DO Work Phone: [facility] Start: 10-02-2024 End: 10-02-2024 Clinisync Result Encounter Generic External Data Provider [facility] External Department Unsolicited Start: 10-02-2024 End: 10-02-2024 Clinisync Result Encounter Generic External Data Provider [facility] External Department Unsolicited Start: 10-01-2024 End: 10-01-2024 Office outpatient visit 40 minutes Ming Espinoza DO Work Phone: [facility] Comment on above: Benign essential hyp ertension (CMS/HCC) (Primary Dx); Renal transplant recipient (CMS/HCC); Immunosuppressive management encounter following kidney transplant (CMS/HCC); Anemia of renal disease; Iron deficiency anemia, unspecified iron deficiency anemia type; Type 2 diabetes mellitus with stage 3a chronic kidney disease, without long-term current use of insulin (HCC) (CMS/HCC); Dyslipidemia (CMS/HCC); Fibromyalgia; Need for immunization against influenza Start: [...] Start: 08-25-2024 End: 08-25-2024 Patient encounter procedure Mnig Espinoza DO Work Phone: [facility] Work Phone: Start: 08-25-2024 End: 08-25-2024 ambulatory Ming Espinoza DO Work Phone: [facility] Work Phone: Start: 08-02-2024 End: 08-03-2024 [...] Work Phone: [facility]XRay [facility] Work Phone: Start: 08-02-2024 End: 08-02-2024 ambulatory DO Ming Espinoza Work Phone: [facility] Work Phone: Start: 07-31-2024 End: 07-31-2024 Clinisync Result Encounter Generic External Data Provider [facility] External Department Unsolicited Start: 07-31-2024 End: 07-31-2024 Clinisync Result Encounter Generic External Data Provider [facility] External Department Unsolicited Start: 07-27-2024 End: 07-27-2024 Office outpatient visit 15 minutes Lucero Hudson [employer] Work Phone: [facility] Comment on above: Acute non-recurrent pansinusitis (Primary Dx); Side effect of medication Start: 07-27-2024 End: 07-27-2024 ambulatory MING ESPINOZA Not Available Start: 07-07-2024 End: 07-07-2024 ambulatory [facility] Start: 07-02-2024 End: 07-02-2024 ambulatory [facility] Start: 06-29-2024 End: 06-29-2024 Clinisync Result [...] Department Unsolicited Start: 05-19-2024 End: 05-19-2024 ambulatory [facility] Start: 04-27-2024 End: 04-27-2024 ambulatory MUNIRA PHAN [facility] Start: 04-23-2024 ambulatory [facility] Start: 04-19-2024 End: 04-19-2024 ambulatory BLAKE HINOJOSA Not Available Start: 04-14-2024 End: 04-14-2024 ambulatory MUNIRA PHAN Not Available Start: 03-23-2024 End: 03-23-2024 ambulatory MING ESPINOZA Not Available Start: 03-15-2024 End: 03-15-2024 ambulatory Andreia Edwards [facility] Work Phone: Start: 03-15-2024 End: 03-15-2024 Departed Referred CECILIA Edwards Work Phone: [facility] Main [place] Work Phone: Start: 03-15-2024 End: 03-15-2024 Patient encounter procedure CECILIA Edwards Work Phone: [facility] Justin Work Phone: Start: 11-06-2023 End: 11-06-2023 Patient encounter procedure DO Ming Espinoza Work Phone: [facility] [address] Work Phone: Start: 11-06-2023 End: 11-06-2023 ambulatory DO Ming Espinoza Work Phone: [facility] Work Phone: Start: 07-30-2022 End: 07-30-2022 ambulatory Yaneth Toni Other [facility] Other Start: 07-30-2022 Office outpatient vi sit 25 minutes Yaneth Toni [facility] Start: 07-29-2022 End: 07-30-2022 ambulatory YANETH TONI Facility: Start: 07-16-2022 End: 07-16-2022 ambulatory DO Ming Espinoza Work Phone: [facility] Work Phone: Start: 07-16-2022 End: 07-16-2022 Patient encounter procedure DO Ming Espinoza Work Phone: [facility] Start: 07-03-2022 End: 07-03-2022 ambulatory Estefania Vo Other [facility] Other Start: 07-03-2022 Follow-up encounter Estefania [facility] Start: 06-20-2022 End: 06-20-2022 ambulatory Jesus Parham Other [facility] Other Start: 06-20-2022 Telephone encounter Jesus adler [facility] Vascular Surgery Start: 06-20-2022 End: 06-20-2022 Emergency department patient visit DO Ming Espinoza Work Phone: [facility]-Emergency Room Start: 06-18-2022 End: 06-18-2022 Admission to same day surgery center DO Ming Ibarraman Work Phone: [facility]-Surgery Center Main [place] Start: 06-14-2022 End: 06-14-2022 Patient encounter procedure DO Ming Espinoza Work Phone: [facility]-Pre-Surgical Testing Start: 06-06-2022 End: 06-07-[address] BRINDA HINOJOSA Facility:[facility]1 Start: 06-05-2022 End: 06-05-2022 Patient encounter procedure DO Ming Espinoza Work Phone: [facility]-Pre-Surgical Testing Start: 06-03-2022 End: 06-03-2022 ambulatory Jesus Parham Other [facility] Other Start: 06-03-2022 Encounter for other preprocedural examination Jesus Parham [facility] Vascular Surgery Start: 06-03-2022 Telephone encounter Jesus adler [facility] Vascular Surgery Start: 05-30-2022 End: 05-30-2022 ambulatory Jesus Chungjaclyn Other [facility] Other Start: 05-30-2022 FQ visit new patient Jesus Montanez chalo [facility] Vascular Surgery Start: 05-30-2022 End: 05-30-2022 Patient encounter procedure DO Ming Ibarraman Work Phone: [facility]-Ultrasound [facility] Start: 05-29-[address] BLAKE HINOJOSA [facility] ity:H1 Start: 05-02-2022 End: 05-02-2022 ambulatory Yaneth Toni Other [facility] Other Start: 05-02-2022 Office outpatient vi sit 25 minutes Yaneth Toni [facility] Nephrology Start: 04-30-2022 End: 04-30-2022 ambulatory Dipika Stinson Other [facility] Other Start: 04-30-2022 Office outpatient vi sit 15 minutes Dipika Shantell [facility] Start: 04-30-2022 Encounter for preprocedural laboratory examination YANETH TONI [facility] Start: 04-29-2022 Encounter for other preprocedural examination DR DOCTOR ALEJANDRO [facility] Start: 04-27-2022 End: 04-28-2022 Encounter for other preprocedural examination DR MING ESPINOZA Facility:[facility]1 Start: 04-27-2022 End: 04-28-[address] MING ESPINOZA Facility:[facility]1 Start: 04-27-2022 End: 04-28-2022 Encounter for preprocedural laboratory examination YANETH TONI Facility:[facility]1 Start: 04-03-2022 Encounter for other specified special examinations DR DOCTOR ALEJANDRO [facility] Start: 04-01-2022 End: 04-01-2022 Admission to same day surgery center DO Ming Espinoza Work Phone: [facility]-Digestive Health Start: 03-29-2022 End: 03-30-[address] DOCTOR ALEJANDRO Facility:[facility]1 Start: 03-29-2022 End: 03-30-2022 Encounter for other specified special examinations DR DOCTOR ALEJANDRO Facility:[facility]1 Start: 03-28-2022 End: 03-28-2022 Patient encounter procedure DO Ming Espinoza Work Phone: [facility]-Pre-Surgical Testing Start: 02-26-2022 End: 02-26-2022 ambulatory Shabbir Jones Other [facility] Other Start: 02-26-2022 Telephone encounter Shabbir VELAZQUEZ [facility] Start: 12-06-2021 End: 12-06-2021 ambulatory Yaneth Toni Other [facility] Other Start: 12-06-2021 Office outpatient vi sit 25 minutes Yaneth Toni [facility] Start: 12-03-2021 End: 12-04-2021 ambulatory YANETH TONI Facility:[facility]1 Start: 09-01-2021 End: 09-02-[address] MING ESPINOZA Facility: Start: 08-02-2019 End: 08-02-2019 Emergency department patient visit VIDAL MADRIGAL [facility] Start: 08-02-2019 End: 08-02-2019 Emergency department patient visit Vidal Madrigal Work Phone: [facility] ED Comment on above: Acute sepsis (HCC) ( Primary Dx); Acute cystitis without hematuria; Chronic renal failure, stage 4 (severe) (HCC); Polycystic kidney disease Procedures Date Procedure Procedure Detail Performing Clinician Start: 03-03-2025 ALL CBC WITH AUTO DIFF Generic External Data Provider Start: 01-29-2025 ALL CBC WITH AUTO DIFF [...] Provider Start: 10-02-2024 [facility] CMP (CMP) ([facility]) Generic External Data Provider Start: [...] Provider Start: 08-31-2024 [facility] CMP (CMP) ([facility]) Generic External Data Provider Start: [...] manufacturers or methods may not be comparable. [facility] Laboratory cigarette machines mechanic and method: RUSSELL UNICEL DXI, 2 SITE IMMUNOENZYMATIC SANDWICH ASSAY. Start: 08-02-2024 Plain chest X-ray DO Chong Espinoza Work Phone: Start: 08-02-2024 Carcinoembryonic ant igen cea Blake Hinojosa DO Work Phone: Comment on above: Result Comment: Seri al tumor marker results determined by assays using different manufacturers or methods may not be comparable. [facility] cigarette machines mechanic and method: RUSSELL UNICEL DXI, 2 SITE IMMUNOENZYMATIC ?SANDWICH? ASSAY. PERFORMED BY: [facility] [address] [id number] PATHOLOGIST SERVICE TECH/WELDER ANAHY MCKEE M.D. Performed By: #### C A125 ####[facility] ,#### CEA ####[facility] [id number] [place] [address] [facility] [[email or web address]] Start: 08-02-2024 Immunoassay tumor an tigen quantitative [...] Work Phone: Start: 08-02-2019 LACTATE, SEPSIS Vidal Wadsworth eese Work Phone: Start: 08-02-2019 Natriuretic peptide Letha Madrigal Work Phone: Start: 08-02-2019 Prothrombin time Vidal Madrigal Work Phone: Start: 08-02-2019 INITIATE OXYGEN THER APY PROTOCOL Vidal Madrigal Work Phone: Start: 08-02-2019 Ecg routine ecg w/le ast 12 lds w/i&r Vidal Madrigal Work Phone: History of renal transplant Tanja l transplant recipient ([facility]/HCC) Ming Espinoza DO Work Phone: History of renal transplant Tanja l transplant recipient ([facility]) Ming Espinoza DO Work Phone: SARS Antigen (LFIA) DO Angy Espinoza Work Phone: Plan of Treatment Date Care Activity Detail Author Start: 04-01-2032 Screening for malign ant neoplasm of colon [facility] Start: 08-25-2025 Screening for malign ant neoplasm of breast Mammogram [facility] Start: 04-23-2025 Urine screening for protein Diabetes: Urine Protein Screening [facility] Start: 04-06-2025 End: 04-06-2025 Patient encounter procedure 04/06/2025 8:15 AM EDT Office Visit [facility] [address] [place] [address] Ming Espinoza DO [address] [place] [address] [facility] Start: 04-01-2025 End: 04-01-2025 Patient encounter procedure 04/01/2025 8:15 AM EDT Office Visit [facility] [address] [place] [address] Ming Espinoza, DO [address] [place] [address] [facility] Start: 10-14-2024 Bacteria identified in Urine by Culture Urine Culture [facility] Start: 10-14-[address] [facility] Start: 10-01-2024 End: 10-01-2024 Patient encounter procedure 10/01/2024 8:15 AM EST Office Visit [facility] IM [address] [place], [place] [address] Ming Espinoza, DO [address] [place] [address] [facility] Start: 09-14-2024 End: 09-14-2024 Patient encounter procedure 09/14/2024 8:45 AM EST Office Visit [facility] OB [address] [place] [address] Blake Hinojosa, DO [address] [place] [address] [facility] Start: 08-26-2024 Urine screening for protein Diabetes: Urine Protein Screening [facility] Start: 08-02-2024 End: 08-02-2024 Patient encounter procedure 08/02/2024 11:00 AM EDT Office Visit [facility] OB [address] [place], [place] [address] Blake Hinojosa, DO [address] [place] [address] [facility] Start: 08-02-2024 End: 08-02-2024 Professional / ancillary services management 08/02/2024 10:15 AM EDT Ancillary Procedure [facility] [address] [place] [address] [facility] Start: 08-02-2024 [facility] Start: 07-24-2024 Hemoglobin A1c measurement Violet betes: Hemoglobin A1C [facility] Start: 06-06-2024 Influenza vaccination Influenza Vacc ine (#1) [facility] Start: 03-16-2024 Bacteria identified in Urine by Culture [facility] Start: 03-15-2024 Bacteria identified in Urine by Culture [facility] Start: 11-06-2023 [facility] Start: 07-29-2023 Urine screening for protein Diabetes: Urine Protein Screening [facility] Start: 07-16-2023 Screening for malign ant neoplasm of breast Mammogram [facility] Start: 06-18-2022 [facility] Start: 06-18-2022 [facility] Start: 04-01-2022 [facility] Work Phone: Start: 06-06-2019 Influenza vaccination Flu vaccine (# 1) [place], [place] Start: 2015 Lipid screen Lipid screen [place], [place] Start: 1996 Cervical cancer screen Cervical canc er screen [place] Start: 1994 DTaP/Tdap/Td vaccine (1 - Tdap) DTaP/Tdap/Td vaccine (1 - Tdap) [place] Start: 1990 HIV screen HIV screen [place], [place] Start: 1985 Glaucoma screening Diabetes: R etinopathy Screening [facility] Start: 1975 Creatinine monitoring Creatinine mon itoring [place] Start: 1975 Potassium monitoring Potassium monit oring [place] Start: 1975 Screening for malign ant neoplasm of colon [facility] 24 hour urine measurement [facility] Albumin [Mass/volume ] in Serum or Plasma [facility] Albumin/Globulin ratio [facility] Aldolase measurement [facility] End: 08-02-2019 Bacteria identified Cx Nom (U) Urine Culture Microbiology STAT One Time for 1 Occurrences starting 08/02/2019 until 08/02/2019 [place] Comment on above: One Time for 1 Occur rences starting 08/02/2019 until 08/02/2019 Bacteria identified Cx Nom (U) Urine Culture Microbiology STAT 08/02/2019 1:00 PM EDT [place] Bacteria identified in Urine by Culture URINE CULTURE, ROUTINE Lab Routine 06/10/2024 1:35 PM EDT [facility] Bacteria identified in Urine by Culture URINE CULTURE, ROUTINE Lab Routine 11/04/2024 8:55 PM EST [facility] [place] 125 [place] 125 Lab Routi ne Cyst of left ovary Ordered: 08/02/2024 [facility] Comment on above: Ordered: 08/02/2024 Cancer Ag 125 [Units/volume] in Serum or Plasma [facility] Carcinoembryonic Ag [Mass/volume] in Serum or Plasma [facility] Lab Routine Cyst of left ovary Ordered: 08/02/2024 [facility] Work Phone: Comment on above: Ordered: 08/02/2024 End: 08-02-2019 Culture blood #1 Culture blood #1 Microbiology STAT One Time for 1 Occurrences starting 08/02/2019 until 08/02/2019 [place] Comment on above: One Time for 1 Occur rences starting 08/02/2019 until 08/02/2019 End: 08-02-2019 Culture blood #2 Culture blood #2 Microbiology STAT One Time for 1 Occurrences starting 08/02/2019 until 08/02/2019 [place] Comment on above: One Time for 1 Occur rences starting 08/02/2019 until 08/02/2019 EKG 12 Lead EKG 12 Lead ECG STAT 08/02/2019 12:25 PM EDT [place] Electrophoresis: [id number] [facility] Electrophoresis: [id number] [facility] Electrophoresis: beta-globulin [facility] Electrophoresis: laura ma globulin [facility] Globulin [Mass/volum e] in Serum [facility] Homogenous nuclear A b pattern [Titer] in Serum [facility] IgA [Mass/volume] in Serum or Plasma [facility] IgG [Mass/volume] in Serum or Plasma [facility] IgM [Mass/volume] in Serum or Plasma [facility] Immunofixation for Urine Fir [facility] Initiate Oxygen Ther apy Protocol Initiate Oxygen Therapy Protocol Respiratory Care Routine Daily until discontinued starting 08/02/2019, 2 [facility]: Daily until disconti nued starting 08/02/2019, 2 completed End: 08-02-2019 Lactate, Sepsis Lactate, Sepsis Lab Timed Now Then Every 2hr for 2 Occurrences starting 08/02/2019 until 08/02/2019, 1 completed [facility] Comment on above: Now Then Every 2hr f or 2 Occurrences starting 08/02/2019 until 08/02/2019, 1 completed Measurement of monoc lonal protein concentration [facility] Nuclear Ab [Titer] i n Serum [facility] Patient Education [facility] Work Phone: Patient referral [facility] Work Phone: Potassium [Moles/vol ume] in Serum or Plasma [facility] Work Phone: Protein [Mass/volume ] in Serum or Plasma [facility] Protein [Mass/volume ] in Urine [facility] Serum immunofixation [facility] Immunizations Immunization Date Immunization Notes Care Provider Chirag [facility] 10-01-2024 Influenza, Madin Roman by Canine Kidney, subunit, trivalent, injectable, contains preservative Ming Espinoza DO Work Phone: [facility] 10-26-2023 Influenza, injectabl e, Madin [place] Canine Kidney, preservative free, quadrivalent Generic Provider [facility] 10-26-2023 influenza virus vacc ine, unspecified formulation Generic Provider [facility] 10-13-2021 COVID-19 [id number].[id number].S (Ainsley) DO Ming Espinoza Work Phone: [facility] 05-29-2020 influenza, high dose seasonal, preservative-free Generic Provider [facility] 08-11-2019 influenza, injectabl e, madin raymond canine kidney, preservative free Generic Provider [facility] 01-26-2018 pneumococcal polysaccharide vaccine, 23 valent Generic Provider [facility] 07-22-2014 seasonal influenza, intradermal, preservative free Generic Provider [facility] Payers Date Payer Category Payer Private Health Insurance [employer] [id number] 2023 Unknown [employer] M [employer] [id number] 2023-Present [address] [place] [address] [id number] 2015 Unknown [employer] M [employer] [address] xxxxxxxxx 2015-Present [phone] [address] [place] [address] xxxxxxxxx [id number] 1975 Unknown [id number] 2.16.840.1.621246.3.579. 2.173 1975 Unknown [id number] 2.16.840.1.376793.3.579. 2.593 1975 Unknown [id number] 2.16.840.1.038681.3.579. 2.593 1975 Unknown [id number] 2.16.840.1.059537.3.579. 2.593 1975 Unknown [id number] 2.16.840.1.080275.3.579. 2.593 1975 Unknown [id number] 2.16.840.1.398907.3.579. 2.593 1975 Unknown [id number] 2.16.840.1.891276.3.579. 2.593 1975 Unknown [id number] 2.16.840.1.777688.3.579. 2.593 1975 Unknown [id number] 2.16.840.1.943067.3.579. 2.593 1975 Unknown [id number] 2.16.840.1.045715.3.579. 2.1259 1975 Unknown [id number] 2.16.840.1.744229.3.579. 2.1259 1975 Unknown [id number] 2.16.840.1.553473.3.579. 2.1259 1975 Unknown [id number] 2.16.840.1.791057.3.579. 2.1259 1975 Unknown [id number] 2.16.840.1.553557.3.579. 2.1259 1975 Unknown [id number] 2.16.840.1.783500.3.579. 2.1259 1975 Unknown [id number] 2.16.840.1.869791.3.579. 2.1259 1975 Unknown [id number] 2.16.840.1.527535.3.579. 2.1259 1975 Unknown [id number] 2.16.840.1.187643.3.579. 2.1259 1975 Unknown [id number] 2.16.840.1.812556.3.579. 2.1259 1959 Self-pay [id number] 1959 Unknown [id number] 1959 Unknown [id number] 2.16.840.1.045060.19 Unknown [id number] 2.16.840.1.891180.19 Unknown [id number] 2.16.840.1.081357.3.579. 2.531 Unknown [id number] 2.16.840.1.861792.3.579. 2.531 Unknown [id number] 2.16.840.1.300729.3.579. 2.531 Unknown [id number] 2.16840.1.219410.3.579. 2.531 Unknown [id number] 2.16.840.1.778989.3.579. 2.531 Social History Date Type Detail Facility Tobacco smoking stat us [facility] Unknown if ever smoked gdgt Sex Assigned At Not on file gdgt Start: 04-19-2024 End: 01-03-2025 Sex Assigned At [facility] Other Start: 06-05-2022 End: 03-13-2023 Tobacco smoking status [facility] Never smoked tobacco (finding) [facility] Start: 1975 Sex Assigned [address] Female [facility] Start: 03-13-2023 Tobacco use and exposure [...] Start: 08-26-2024 End: 10-15-2024 Sex Female (finding) [facility] Medical Equipment Procedure Code Equipment Code Equipment Origin al Text Equipment Identifier Dates Use as instructed [id number] Start: 06-10-2023 End: 06-09-2024 Goals Date Patient Goal Desired Activity /State Clinical Notes 05-17-2020 to 02-02-2025 Carolras Camacho, CIARRA - 09/14/2024 8:45 AM ESTHERYolandajohan Camacho MA - 08/02/2024 11:00 AM Dar Hudson NP - 07/27/2024 8:20 AM EDT Note Date & Type Note Facility 02-02-2025 Note Reviewed poatssium teresa poe and pt's request to switch to 10MEQ tabs with Dr. Bernal. PO received ok to change to 10MEQ and increase to 30MEQ daily. Called pt notified of change and verified pharmacy. Pt requested refills on MagOx that her pharmacy told her the doctor did not approve. [employer] refilled MagOx. Medication list updated. [facility] 11-24-2024 Note Patient called benigno borrero a urine culture was supposed to be done on 11/12/24. No urine culture was done. Patient states she is still having symptoms of UTI. Patient would like a callback. [facility] 11-12-2024 Note Transplant Clinic Patient : [...] recently was seen at the ER [facility], started on a course of Cipro, final [...] flank pain. None today. Will order Ultrasound [facility] [place] [facility] [place] and transplant kidney. Pt known hx: Chronic [...] 04/23/2024 Endocrine: L (more content not included)... [facility] 11-09-2024 Note Patient called in th [...] admission. Patient was updated and verbalized understanding. [facility] 10-21-2024 Note Pt was notified of n ew order from Dr. Blanchard by phone to complete Keflex 500mg TID for 1 week. Pt informed and verbalized understanding. RX was sent. [facility] 10-21-2024 Note Noted patient call t [...] she had sepsis and was hospitalized @ [facility] four years ago. She at work today and seems in good humor. [facility] 10-21-2024 Note Per phone order of Kody Mcqueen MD, patient notified via phone call to decrease their medication Myfortic dose twice a day 360 mg , will now be on 360mg twice a day an no need for urology FU at this time. Pt informed by phone and verbalized understanding. [facility] 10-21-2024 Note Pt called wanting to talk to Lu. She has uti sx's with low grade fever, chills, abd pain. She didn't think of this yesterday when she spoke with Lu. She does want to go ahead and get the abx called into [facility] in [facility] 10-20-2024 Note Noted urine culture report showing E coli MDRO from [facility]. Pt reports using BID Methamine after seeing Dr. Blanchard and states her urine is clear (no longer cloudy), denies urgency and mild burning at start of urination denying fever chills or other associated UTI symptoms. States having hematuria with past UTIs. Reviewed with Dr. Sujit Bernal by phone the results of culture and pt report to coordinator and per this MD to FU with Dr. Sree Blanchard in urology and start cranberry tabs OTC. Pt notified and verbalized understanding but uncertain that RV with urology will be helpful. Agrees to resume the cranberry tablets. Pt states prior to renal transplant her trim stencil maker prescribed Bactrim for her to prevent UTIs and she wishes that the E Coli was gone from her urine. Verbalized understanding of colonization. Have asked urology clinic [place] staff via [employer] Secure Chat to contact pt for FU with Dr. Blanchard. Will discuss with this MD plan for return visit. [facility] 10-20-2024 Note Faxed stat request t o [facility] Med Records for results of 10/14/[address] culture[address] [facility] 10-12-2024 Note Patient called, stat es she is having urinary burning, urgency and cloudy urine. Denies fever. Has a history of frequent UTI's and sees Dr. Blanchard, follow up appt is scheduled next month. Questions if she can get urine culture order sent to local lab at [facility]. . Per Dr. Bernal, order sent. Reviewed tac level of 3.7, no changes at this time due to possible infection. Patient verbalized understanding. [facility] 09-14-2024 History of Present illness Narrative Images from the original note were not included. Blake Hinojosa, DO Obstetrics and Gynecology Mandeep Puri 1975 09/14/24 [id number] Ultrasound Follow Up Exam Chief Complaint Patient [...] LOW TRANSVERSE 07/23/2003 COLONOSCOPY 04/01/2022 Dx Diverticulosis MS BREAST REDUCTION 1996 TOTAL ABDOMINAL HYSTERECTOMY 03/19/2017 [...] 09/14/24 Time 5:00PM. documented in this encounter [facility] 08-06-2024 Note Patient tac level is 8.2, per Dr Sharla anderson, patient notified to decrease envarsus by 0.5 mg, will now be on 1.5 mg daily of envarsus, repeat level in one week. Patient verbalized understanding. [facility] 08-02-2024 History of Present illness Narrative Images from the original note were not included. Blake Hinojosa, DO Obstetrics and Gynecology Mandeep Puri 1975 08/02/24 [id number] Yearly Wellness Exam Chief Complaint Patient presents [...] LOW TRANSVERSE 07/23/2003 COLONOSCOPY 04/01/2022 Dx Diverticulosis MS BREAST REDUCTION 1996 TOTAL ABDOMINAL HYSTERECTOMY 03/19/2017 [...] 08/02/24 Time 5:00PM. documented in this encounter [facility] 07-27-2024 History of Present illness [...] Active Problem List Diagnosis Benign essential hypertension ([facility]) Fibromyalgia MICHELLE (iron deficiency anemia) RADHA (obstructive sleep apnea) Renal transplant recipient ([facility]) Type 2 diabetes mellitus with diabetic chronic kidney disease ([facility]) Mixed anxiety and depressive disorder Dyslipidemia ([facility]) Gastroesophageal reflux disease Immunosuppressive management encounter following kidney transplant ([facility]) ADPKD (autosomal dominant polycystic kidney disease) Polyarthritis of multiple sites Anxiety Anemia of renal disease NSTEMI (non-ST elevated myocardial infarction) ([facility]) Polycystic kidney disease Secondary hyperparathyroidism ([facility]) Tonsillolith Stage 4 chronic kidney disease ([facility]) Chronic kidney disease, stage 5 ([facility]) Gout Review of Systems Constitutional: Positive for [...] Lucero Hudson NP documented in this encounter [facility] 07-09-2024 Note Positive urine cultu re. Per Dr. Blanchard, Macrobid 100 mg BID x 7 days ordered to patient's pharmacy. Pt was informed and verbalized understanding. [facility] 07-07-2024 Note Chief complaint: Rec urrent [...] on file Intimate Partner Violence: Unknown (11/27/2023) [place] Safety & Environment Fear of Current or [...] cyst which she will discuss with her trim stencil maker. At this point we will recommend continuing the methenamine prophylaxis. She does not prove effective can consider lowering the Myfortic. Sree Blanchard MD [facility] 06-15-2024 Note Patient notified of Augmentin Rx sent in to pharmacy for positive urine culture by NORMA Jasso per [employer] secure chat. Patient verbalizes understanding. [facility] 06-10-2024 Note Patient requests uri ne culture order to be refaxed to [facility]. as the hospital is telling her not received. Order promptly refaxed with confirmation received. Pt advised to FU with coordinator and alternative fax number if hospital reports again no receipt of the order. She acknowledged understanding [facility] 06-09-2024 Note Tac level 3.0, Mg [...] Patient requests order to be faxed to [facility]. [facility] 05-19-2024 Note Chief complaint: Rec urrent [...] on file Intimate Partner Violence: Unknown (11/27/2023) [place] Safety [place] Environment Fear of Current or [...] back after the CT. Sree Blanchard MD [facility] 04-29-2024 Note Patient urine cultur e/susceptible [...] prior to urology appointment. Patient verbalized understanding. [facility] 04-27-2024 Note 04/27/24 Chief Complaint Patient [...] MD Txp Referring: Yaneth Muñoz Preferred Pharmacy: [facility] [address] [place] [address] [place] [address] [facility] [address] [facility]/pharmacy #[id number] [place], [place] [address] [facility] [address] OF [address] [address] [facility] [place] [address] [address] Subjective Visit Vitals BP 121/60 (BP Location: [...] Dose Status amLODIPine (Norvasc) 10 mg tablet [id number] Yes Take 1 tablet (10 mg) by mouth in the morning. Aguila Parrish MD Taking Active bumetanide (Bumex) 2 mg tablet [id number] Take 1 tablet (2 mg) by mouth in the morning. Patient not taking: Reported on 11/08/2022 Aguila Parrish MD 10/25/22 2359 docusate sodium (Colace) 100 mg capsule [id number] Take 1 capsule (100 mg) by mouth in the morning and at bedtime. Patient not taking: Reported on 09/01/2023 Paty Ansari NP Active DULoxetine (Cymbalta) [address] capsule [id number] Yes Take 1 capsule every day by oral route. Historical ProviderMD Taking Active Envarsus XR 1 mg tablet ER [id number] Yes TAKE 3 TABLETS BY MOUTH ONCE DAILY IN THE MORNING. TAKE ALONG WITH 0.75 MG TABLETS DIRECTED FOR TOTAL DOSE UP TO 4.5 MG PER DAY. Patient taking differently: Take 2 mg by mouth in the morning. Aguila Parrish MD Taking Flag for Review famotidine (Pepcid) 20 mg tablet [id number] Yes Take 1 tablet (20 mg) by mouth in the morning. Patient taking differently: Take 20 mg by mouth if needed. Aguila Parrish MD Taking Active febuxostat (Uloric) 40 mg tablet [id number] Take 0.5 tablets every day by oral route. Historical ProviderMD Active ferrous sulfate 325 (65 Fe) MG tablet [id number] Yes Take 65 mg by mouth every other day. Historical ProviderMD Taking Active fish oil (Mesa-3) 60-90-500 mg capsule [id number] Take 2 capsules (1,000 mg) by mouth in the morning and at bedtime. Patient not taking: Reported on 12/23/2023 Sujit Bernal MD Active Levemir FlexPen 100 unit/mL (3 mL) pen [id number] INJECT 12 UNITS SUBCUTANEOUS IN AM 30 DAYS Historical ProviderMD Active magnesium oxide (Mag-Ox) 400 mg (241.3 mg magnesium) tablet [id number] Yes TAKE 2 TABLETS BY MOUTH IN THE MORNING AND 2 TABLETS AT BEDTIME Sree Blanchard MD Taking Active mycophenolate (Myfortic) 180 mg EC tablet [id number] Yes Take 4 tablets (720 mg) by mouth in the morning and at bedtime. Aguila Parrish MD Taking Active oxyCODONE-acetaminophen (Percocet) 5-325 mg tablet [id number] Take 1 tablet by mouth every 6 (six) hours if needed for severe pain (8-10 pain score) for up to 20 doses. Patient not taking: Reported on 09/01/2023 Paty Ansari NP Active potassium chloride CR (Klor-Con M20) 20 mEq ER tablet [id number] Yes Take 1 tablet (20 mEq) by mouth in the morning. Do not crush or chew. Andrea Elizondo MD Taking Active pravastatin (Pravachol) 40 mg tablet [id number] Yes Take 1 tablet (40 mg) by mouth at bedtime. Patient taking differently: Take 40 mg by mouth at bedtime. 40 mg 4 times a week. Fri Sat Kevin Raymond MD Taking Active semaglutide (Ozempic) 2 mg/dose (8 mg/3 mL) pen injector [id number] Yes Inject 2 mg under the skin every 7 (seven) days. Historical Provider, Taking Active tacrolimus ER (Envarsus XR) 0.75 mg tablet ER [id number] Yes Take 2 tablets (1.5 mg) by mouth in the morning. Script total 4.5 mg daily Priyanka Villanueva MD Taking Active tacrolimus ER (Envarsus XR) 1 mg tablet ER [id number] Yes Take 3 tablets (3 mg) by mouth in the morning. Script total 4.5 mg daily Priyanka Villanueva MD Taking Active Immunization History Administered Date(s) Administered Ainsley Sars-Cov-2 Vaccination 10/13/2021 Patient Active Problem List Diagnosis Anxiety COVID-19 Depressive disorder Gastroesophageal reflux disease Gout Primary hyper (more content not included)... [facility] 04-23-2024 Note Patient TAC level, 1 [...] making change in dose. Patient verbalized understanding. [facility] 04-21-2024 Note Patient called, stat es [...] urine culture to be done, voiced understanding. [facility] 03-25-2024 Note Patient called, stat willard PCP stopped Bactrim and started Keflex for E-coli in urine. On 500 mg tid x 7 days. Advised to hydrate well and get labs, repeat urine culture once completed. Voiced understanding. [facility] 03-16-2024 Note Patient called benigno borrero she is currently being treated for a UTI with bactrim BID for [address] [facility] 02-25-2024 Note Received a call from the patient regarding the non-compliant lab letter. Explained to the patient that we had gotten some labs on her but not a CMP or BMP. Patient stated that she has always gotten her labs drawn at [facility]. She will be getting labs drawn tomorrow and she will make sure that the draw the correct labs and have the results sent to us. [facility] 07-30-2022 Evaluation note Encounter Date Diagnosis [...] She has gout and follows with a local company intermodal truck driver. She takes Urolic and denies any recent gout flare Jul, Metabolic acidemia, unspecified (ICD-10 - P19.9) She has metabolic acidosis due to the advanced CKD. Continue oral Sodium Bicarbonate [facility] Other 09-28-2022 Evaluation note* Encounter Date Diagnosis [...] disease, unspecified CKD stage (ICD-10 - N18.9) [facility]* Encounter Date Diagnosis Assessment Notes Treatment Notes Treatment Clinical Notes May, Pre-op testing (ICD-10 - Z01.818) [facility] Other 08-25-2022 Evaluation note* Encounter Date Diagnosis [...] will schedule this in the near future. [facility] Other 07-28-2022 Evaluation note* Encounter Date Diagnosis [...] explained to her the potential need of CIVIL LABORATORY TECHNICIAN in future. I discussed with her different options of CIVIL LABORATORY TECHNICIAN including PD, HTN renal transplant. I [...] stephens s gout and follows with a local company intermodal truck driver. She takes Urolic and denies any recent gout flare [facility] Other 07-26-2022 Evaluation note* Encounter Date Diagnosis [...] care provider if no improvement of symptoms. [facility] Other 05-24-2022 Evaluation note* Encounter Date Diagnosis Assessment Notes Treatment Notes Treatment Clinical Notes February, Screening for colon cancer (ICD-10 - Z12.11) [facility] Other 03-03-2022 Evaluation note* Encounter Date Diagnosis [...] explained to her the potential need of CIVIL LABORATORY TECHNICIAN in future. I discussed with her different options of CIVIL LABORATORY TECHNICIAN including PD, HTN renal transplant. I [...] and she appears to be euvolemic..Continue lisinopril. 03 Mar, 2022 Metabolic acidosis (ICD-10 - E87.2) She had [...] She has gout and follows with a local company intermodal truck driver. She takes Urolic and denies any recent gout flare [facility] Other 06-25-2021 NotePatient Outreach (NEPHMN) MANDEEP PURI ([id number]) 1975 F Date Time Provider Department 03/30/21 PERRI BARRETT During your visit today, we recorded the following information about you: Allergies As of Date: 03/30/2021 Noted Allergy Reaction ALLOPURINOL 08/02/2019 4 - Hives Date Reviewed: 03/30/2021 Reviewed by: Perri Barrett MD - Fully Assessed Visit Diagnosis:Screening for genitourinary condition [Z13.89] Order(s):URINALYSIS, DIPSTICK ONLY [SQUA] Order #: [id number]. #:[id number] Prescriptions as of 03/30/2021 Sig: DULOXETINE 60 [...] dis*03/30/2021 Encounter Status:Closed by HORTENSIA, PRODUSER on 04/02/21[facility] 03-30-2021 NoteHNO ID: [id number] Author: Perri Barrett MD Service: ? Author Type: Physician Type: Progress Notes Filed: 03/30/2021 10:25 AM Note Text: Mrs. 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 sirol[facility]rapamycin) [facility] general Narrative - Reported * Type Description Date Medical History HTN (hypertension) Medical History Anxiety Medical History polycystic kidneys Medical History COVID 05-17-2020 Surgical History C section Surgical History BREAST REDUCTION Hospitalization History child Hospitalization History KIDNEY INFECTION 07/2019 Hospitalization History COVID AND DEHYDRATION [facility] Other 08-12-2020 History general Narrative - Reported* Type Description Date Medical History HTN (hypertension) Medical History Anxiety Medical History polycystic kidneys Medical History COVID 05-17-2020 Medical History end stage renal disease Surgical History C section Surgical History BREAST REDUCTION Surgical History colonoscopy 04/01/2022 Surgical History wisdom teeth 03/24/2022 Hospitalization History child Hospitalization History KIDNEY INFECTION 07/2019 Hospitalization History COVID AND DEHYDRATION [facility] Other 08-12-2020 History general Narrative - Reported* [...] INFECTION 07/2019 Hospitalization History COVID AND DEHYDRATION [facility] Other 08-12-2020 History general Narrative - Reported* [...] INFECTION 07/2019 Hospitalization History COVID AND DEHYDRATION [facility] [employer] Other Evaluation noteNo assessment information available [facility] Work Phone: Evaluation noteNo InformationNortAdvanced [facility] Hospital [employer] Other Evaluation note* Diagnosis Onset Date Resolution Status Dysuria acute UTI (urinary tract infection) acute [facility] Work Phone: Evalumilnv note* Diagnosis Acute non-recurrent pansinusitis- Primary Side effect of medication documented in this encounter [facility] HealthcareEvaluation note* Diagnosis Cyst of left ovary- Primary Other and unspecified ovarian cyst Dyspareunia in female documented in this encounter [facility] HealthcareEvaluation note* Diagnosis Cyst of left ovary Other and unspecified ovarian cyst documented in this encounter [facility]* Diagnosis Benign essential hypertension ([facility])- Primary Essential hypertension, benign Renal transplant recipient ([facility]) Immunosuppressive management encounter following kidney transplant ([facility]) Encounter for long-term (current) use of other medications Anemia of renal disease Anemia in chronic kidney disease Iron deficiency anemia, unspecified iron deficiency anemia type Type 2 diabetes mellitus with stage 3a chronic kidney disease, without long-term current use of insulin (HCC) ([facility]) Dyslipidemia ([facility]) Other and unspecified hyperlipidemia Fibromyalgia Unspecified myalgia and myositis Need for immunization against influenza Need for prophylactic vaccination and inoculation against influenza documented in this encounter [facility]* Diagnosis Polycystic kidney disease- Primary Congenital polycystic kidney, unspecified type Anemia of renal disease Anemia in chronic kidney disease Immunosuppressive management encounter following kidney transplant ([facility]) Encounter for long-term (current) use of other medications Renal transplant recipient ([facility]) Type 2 diabetes mellitus with stage 3a chronic kidney disease, without long-term current use of insulin (HCC) ([facility]) Dyslipidemia ([facility]) Other and unspecified hyperlipidemia documented in this encounter [facility] Ass[facility] Diagnosis Acute sepsis (HCC)- Primary Acute cystitis without hematuria Acute cystitis Chronic renal failure, stage 4 (severe) (HCC) Polycystic kidney disease Polycystic kidney, unspecified type Advance Directives Documents on File Type Date Recorded Patient Assorter Laundry Expl anation Advance Directives and Living Will Power of Supervisor Drying And Softening Advance Directive Response Recorded Date/ Time Advance [...] DATE CREATED AUTHOR AUTHOR'S ORGANIZ ATION 04/28/2020 [facility] DATE CREATED AUTHOR AUTHOR'S ORGANIZ ATION 09/12/2020 [facility] DATE CREATED AUTHOR AUTHOR'S ORGANIZ ATION 11/07/2021 [facility] DATE CREATED AUTHOR AUTHOR'S ORGANIZ ATION 02/27/2022 [facility] DATE CREATED AUTHOR AUTHOR'S ORGANIZ ATION 08/04/2022 [facility] DATE CREATED AUTHOR AUTHOR'S ORGANIZ ATION 10/19/2024 [facility] DATE CREATED AUTHOR AUTHOR'S ORGANIZ ATION 01/09/2025 [facility] EPIC DATE CREATED AUTHOR AUTHOR'S ORGANIZ ATION 02/12/2025 [facility] Care Teams (unrecognized sec tion [...] March 15, 2024 End: March 15, 2024 Mobile [employer] Rv Technician Relationship Specialty Start Date End Date Ming Espinoza DO [address] [place] [address] PCP - Medical [employer] 10/06/21 10/05/99 Ming Espinoza DO [address] [place] [address] PCP - General Internal Medicine 05/02/23 Mobile [employer] Rv Technician Relationship Specialty Start Date End Date Ming Espinoza DO [address] [place] [address] PCP - Medical [employer] 10/06/21 10/05/99 Ming Espinoza DO [address] [place] [address] PCP - General Internal Medicine 05/02/23 Mobile [employer] Rv Technician Relationship Specialty Start Date End Date Ming Espinoza DO [address] [place] [address] PCP - Medical [employer] 10/06/21 10/05/99 Ming Espinoza DO [address] [place] [address] PCP - General Internal Medicine 05/02/23 Mobile [employer] Rv Technician Relationship Specialty Start Date End Date Ming Espinoza DO [address] [place] [address] PCP - Medical [employer] 10/06/21 10/05/99 Ming Espinoza DO [address] [place] [address] PCP - General Internal Medicine 05/02/23 Team [...] August 25, 2024 End: August 25, 2024 Mobile [employer] Rv Technician Relationship Specialty Start Date End Date Ming Espinoza DO [address] [place] [address] PCP - Medical [employer] 10/06/21 10/05/99 Ming Espinoza DO [address] [place] [address] PCP - General Internal Medicine 05/02/23 Mobile [employer] Rv Technician Relationship Specialty Start Date End Date Ming Espinoza DO [address] [place] [address] PCP - Medical [employer] 10/06/21 10/05/99 Ming Espinoza DO [address] [place] [address] PCP - General Internal Medicine 05/02/23 Mobile Service Rv Technician Relationship Specialty Start Date End Date Ming Espinoza DO [address] [place] [address] PCP - Medical [employer] 10/06/21 10/05/99 Ming Espinoza DO [address] [place] [address] PCP - General Internal Medicine 05/02/23 Mobile Service Rv Technician Relationship Specialty Start Date End Date Ming Espinoza DO [address] [place] [address] PCP - Medical [employer] 10/06/21 10/05/99 Ming Espinoza DO [address] [place] [address] PCP - General Internal Medicine 05/02/23 Mobile Service Rv Technician Relationship Specialty Start Date End Date Ming Espinoza DO [address] [place] [address] PCP - Medical [employer] 10/06/21 10/05/99 Ming Espinoza DO [address] [place] [address] PCP - General Internal Medicine 05/02/23 Team Status: Inactive Member Role Status Dates Ming Espinoza DO Primary Care Provider Active Start: October 14, 2024 End: October 14, 2024 Sujit Bernal MD Attending Provider Active S tart: October 14, 2024 End: October 14, 2024 Mobile Service Rv Technician Relationship Specialty Start Date End Date Ming Espinoza DO Kary [address] [place] [address] PCP - Medical [place] [employer] 10/06/21 10/05/99 Alexis, Ming Preston DO [address] [place] [address] PCP - General Internal Medicine 05/02/23 Mobile Service Rv Technician Relationship Specialty Start Date End Date AlexisMing DO [address] [place] [address] PCP - Medical [place] [employer] 10/06/21 10/05/99 AlexisMing DO [address] [place] [address] PCP - General Internal Medicine 05/02/23 Goals [...] BE BASED ON THE PRIMARY CLINICAL RECORDS. [employer] [facility]. provides no warranty or guarantee of the accuracy or completeness of information in this document.
[2025-04-02 08:43] LABS: Basophils Absolute Auto 0.1 10^3/uL (0.0-0.1); Basophils Percent Auto 0.7 % (0.2-2.0); Eosinophils Absolute Auto 0.3 10^3/uL (0.0-0.7); Eosinophils Percent Auto 3.4 % (0.9-7.0); Hematocrit 40.1 % (36.0-48.0); Hemoglobin 13.6 g/dL (12.0-16.0); Immature Granulocytes Abs Auto 0.04 10^3/uL (0.00-0.03); Immature Granulocytes Pct Auto 0.5 % (0.0-0.5); Lymphocytes Absolute Auto 1.7 10^3/uL (1.2-3.8); Lymphocytes Percent Auto 20.2 % (20.5-60.0); Mean Corpuscular HGB Conc 33.9 g/dL (29.9-35.2); Mean Corpuscular Hemoglobin 29.3 pg (26.7-34.0); Mean Corpuscular Volume 86.4 fL (81.0-99.0); Mean Platelet Volume 8.7 fL (9.5-13.5); Monocytes Absolute Auto 0.5 10^3/uL (0.3-0.8); Monocytes Percent Auto 5.4 % (1.7-12.0); Neutrophils Percent Auto 69.8 % (43.0-75.0); Platelet Count 334 10^3/uL (150-450); Red Blood Count 4.64 10^6/uL (4.20-5.40); Red Cell Distribution Width 14.1 % (11.0-15.0); White Blood Count 8.6 10^3/uL (4.0-11.0)
[2025-04-02 09:42] LABS: Alanine Aminotransferase 22 U/L (14-59); Albumin Level 3.8 g/dL (3.4-5.0); Alkaline Phosphatase 90 U/L (46-116); Anion Gap 15.7; Aspartate Amino Transferase 16 U/L (15-37); BUN Creatinine Ratio 11.9; Bilirubin Direct 0.1 mg/dL (0.0-0.2); Bilirubin Total 0.4 mg/dL (0.2-1.0); Calcium 9.3 mg/dL (8.5-10.1); Carbon Dioxide 24.5 mmol/L (21.0-32.0); Chloride 105 mmol/L (98-107); Estimated GFR (African America 59 (>=60 mL/min/1.73m^2); Estimated GFR (Non-African Ame 49 (>=60 mL/min/1.73m^2); Globulin 3.9 g/dL; Glucose 114 mg/dL (74-106); Magnesium 1.8 mg/dL (1.8-2.4); Phosphorus 3.5 mg/dL (2.6-4.7); Potassium 3.2 mmol/L (3.5-5.1); Sodium 142 mmol/L (136-145); Total Protein 7.7 g/dL (6.4-8.2)
[2025-04-06 06:07] LABS: Tacrolimus (FK506), Blood 5.4 ng/mL (5.0-20.0)
== END 2025-04-02 08:09 | disposition home or self-care (01) ==
LOC: LAB 08:08
PROVIDERS: PCP Internal Medicine
DX: E78.5 Hyperlipidemia, unspecified (principal); Z94.0 Kidney transplant status; R73.01 Impaired fasting glucose; R60.9 Edema, unspecified
CPT/HCPCS: 36415; 80053; 80061; 80197; 82248; 83036; 83735; 84100; 84550; 85025; 87799

== ENCOUNTER 2025-05-04 07:33 | Outpatient (OUT) | payer OTHER, SELFPAY ==
--- OUTSIDE RECORDS SUMMARY | 2025-05-04 07:39 | XMS_ITS | Encounter Summary ---
Author Organization [facility] Address [address] [place] [address] Care Team Providers Care Cold Rolling Supervisor Name Role Phone Ming Triplett DO Unavailable [phone] Ming Triplett DO Primary Care Provider [phone] Encounter Details Date Type Department Care Team (Late st Contact Info) Description 04/18/2025 Results Follow-Up [facility] Internal Medicine [address] [facility] [address] [place] [phone] Ming Triplett DO [address] [facility] [address] [place] [address] Social History Tobacco Use Types Packs/Day Years [...] Date Recorded Patient Health Questionnaire-2 Score 0 04/11/2025 Comments No Sex and Gender Information Value Date Recorded Sex Assigned at Female 03/25/2023 2:02 PM EDT Legal Sex Female 6:37 PM EDT Gender Identity Female 03/25/2023 2:02 PM EDT Sexual Orientation Straight 10/08/2023 9: 32 AM EST Occupation Industry Job Start Date Job End Date Unemployed Not on file Not on file Not on file documented as of this encounter Miscellaneous Notes * Result Encounter Note - Ming Triplett DO - 04/18/2025 8:13 AM EDT Call, thyroid and vit D levels are WNL documented in this encounter Plan of Treatment Upcoming Encounters Date Type Department Care Team (Late st Contact Info) Description 10/17/2025 8:30 AM EST Office Visit [facility] [address] [facility] [address] [place] [address] documented as of this encounter Visit Diagnoses Not on filedocumented in this encounter Care Teams Cold Rolling Supervisor Relationship Specialty Start Date End Date Ming Triplett DO [address] [facility] [address] [place] [address] PCP - Medical [place] [employer] 10/06/21 10/05/99 Ming Triplett DO [address] [facility] [address] [place] [address] PCP - General Internal Medicine 05/02/23 documented as of this encounter
--- OUTSIDE RECORDS SUMMARY | 2025-05-04 07:39 | XMS_ITS | Encounter Summary ---
Author Organization [facility] Address [address] [facility] [place] [address] Care Team Providers Care Numerical Control Nesting Operator Name Role Phone Ioana, Ming Preston DO Unavailable [phone] Ming Triplett DO Primary Care Provider [phone] Encounter Details Date Type Department Care Team (Late st Contact Info) Description 11/01/2024 Orders Only [facility] [address] [facility] [address] [place] [address] Unallocated, Noms Provider, [address] [place] [address] Social History Tobacco Use Types Packs/Day Years [...] Description 10/17/2025 8:30 AM EST Office Visit [facility] [place] [facility] [address] [place] [address] documented as of this encounter Procedures Procedure [...] on filedocumented in this encounter Care Teams Numerical Control Nesting Operator Relationship Specialty Start Date End Date Ming Triplett DO [address] [place] [address] PCP - Medical [place] [employer] 10/06/21 10/05/99 Ming Triplett DO [address] [place] [address] PCP - General Internal Medicine 05/02/23 documented as of this encounter
--- OUTSIDE RECORDS SUMMARY | 2025-05-04 07:39 | XMS_ITS | Encounter Summary ---
Author Organization [facility] Address [address] [place] [address] Care Team Providers Care Bark Skinner Name Role Phone Ming Triplett DO Unavailable [phone] Ming Triplett DO Primary Care Provider Encounter Details Date Type Department Care Team (Late st Contact Info) Description 08/25/2024 External Result Encounter [facility] External Department Unsolicited Blake Hinojosa, DO [address] [facility] [address] [place] [address] Social History Tobacco Use Types Packs/Day Years [...] Visit [facility] [address] [place] [address] documented as of this encounter Procedures Procedure [...] Messina Jr., D.O.08/25/2024 3:24 PM Dictation Location: [facility] Transcribed By: [facility] 08/25/24 1524 Dictated By: Evan Messina Jr, DO 08/25/24 1523 Signed By: <Electronically signed by Evan Messina Jr, DO in OV> 08/25/24 1524 Narrative 08/25/2024 3:26 PM EST [facility] Main [address] [address] Mammography Report Signed Patient: Patsy Puri MR#: [id number] 15 : 1975 Acct:[id number] Age/Sex: 48 / F ADM Date: 08/25/24 Loc: [place] Room: Type: [facility] Attending Dr: Blake Hinojosa DO Copies [...] Procedure Note Radiology, Radiologist, MD - 08/25/2024 [facility] Main [place] [address] [place] [address] Mammography Report Signed Patient: Patsy Puri LMR#: [id number] 15 : 1975Acct:[id number] Age/Sex: 48 / FADM Date: 08/25/24 Loc: [place] Room:Type: [facility] Attending Dr: Blake Hinojosa DO Copies [...] Messina Jr., D.O.08/25/2024 3:24 PM Dictation Location: [facility] Transcribed By: SALMA 08/25/24 1524 Dictated By: Evan Messina Jr, DO 08/25/24 1523 Signed By: <Electronically signed by Evan Messina Jr, DO inOV> 08/25/24 1524 Blake Hinojosa DO IMG BI PROCEDURES Final Resu lt documented in this encounter Visit Diagnoses Not on filedocumented in this encounter Care Teams Bark Skinner Relationship Specialty Start Date End Date Ming Triplett DO [address] [place] [address] PCP - Medical [place] [employer] 10/06/21 10/05/99 Ming Triplett DO [address] [place] [address] PCP - General Internal Medicine 05/02/23 documented as of this encounter
--- OUTSIDE RECORDS SUMMARY | 2025-05-04 07:39 | XMS_ITS | Encounter Summary ---
Author Organization [facility] Address [address] [facility] [place] [address] Care Team Providers Care Seafood Service Team Member Name Role Phone Ming Triplett DO Unavailable Ming Triplett DO Primary Care Provider [phone] Encounter Details Date Type Department Care Team (Late st Contact Info) Description 04/06/2024 Orders Only [facility] [place] [facility] [address] [facility] [address] [place] [phone] A, Unknown Practice [address] [place], [place] [phone] Social History Tobacco Use Types Packs/Day Years [...] Medicine [address] [place] [address] documented as of this encounter Procedures Procedure [...] on filedocumented in this encounter Care Teams Seafood Service Team Member Relationship Specialty Start Date End Date Ming Triplett DO [address] [place] [address] PCP - Medical [place] [employer] 10/06/21 10/05/99 Ming Triplett DO [address] [place] [address] PCP - General Internal Medicine 05/02/23 documented as of this encounter
--- OUTSIDE RECORDS SUMMARY | 2025-05-04 07:39 | XMS_ITS | Clinical Summary ---
Author Organization [facility] Address [address] [place] [address] Care Team Providers Care Fuse Coiler Name Role Phone Ming Triplett DO Primary [...] N ot on file 03/30/2021 Data from: https://www.neighborhoodatlas.medicine.[facility].edu/. Last address used for calculation Not [...] Covid-19 Vaccine ( season) 2024 Influenza Vaccine (#1) 2025 05/29/2020, 2018 Insurance [address] [place] [address] MMO [employer] P[employer] Care Teams Fuse Coiler Relationship Specialty Start Date End Date Ming Triplett DO [address] [place] [address] PCP - General Internal Medicine 11/07/17
--- OUTSIDE RECORDS SUMMARY | 2025-05-04 07:39 | XMS_ITS | Encounter Summary ---
Author Organization [facility] Address [address] [place] [address] Care Team Providers Care Rental Management Trainee Name Role Phone IoanaHuy peraltarey Kary DO Unavailable [phone] Ming Triplett DO Primary Care Provider [phone] Encounter Details Date Type Department Care Team (Late Contact Info) Description 06/11/2023 Orders Only [facility] [address] [facility] [address] [place] [address] A, Unknown Practice [address] [place], [place] [address] Social History Tobacco Use Types Packs/Day Years [...] Visit [facility] [address] [facility] [address] [place] [address] documented as of this encounter Procedures Procedure [...] on filedocumented in this encounter Care Teams Rental Management Trainee Relationship Specialty Start Date End Date Ming Triplett DO [address] [place] [address] PCP - Medical [place] [employer] 10/06/21 10/05/99 Ming Triplett DO [address] [place] [address] PCP - General Internal Medicine 05/02/23 documented as of this encounter
--- OUTSIDE RECORDS SUMMARY | 2025-05-04 07:39 | XMS_ITS | Encounter Summary ---
Author Organization [facility] Address [address] [facility] [place] [address] Care Team Providers Care Material Expediter Name Role Phone IoanaHuy peraltarey Kary DO Unavailable [phone] Ming Triplett DO Primary Care Provider [phone] Encounter Details Date Type Department Care Team (Late Contact Info) Description 07/31/2023 Orders Only [facility] [address] [facility] [address] [place] [address] A, Unknown Practice [address] [place], [place] [phone] Social History Tobacco Use Types Packs/Day Years [...] Visit [facility] [address] [facility] [address] [place] [address] documented as of this encounter Procedures Procedure [...] on filedocumented in this encounter Care Teams Material Expediter Relationship Specialty Start Date End Date Ming Triplett DO [address] [place] [address] PCP - Medical [place] [employer] 10/06/21 10/05/99 Ming Triplett DO [address] [place] [address] PCP - General Internal Medicine 05/02/23 documented as of this encounter
--- OUTSIDE RECORDS SUMMARY | 2025-05-04 07:39 | XMS_ITS | Encounter Summary ---
Author Organization [facility] Address [address] [facility] [place] [address] Care Team Providers Care Trim Stencil Maker Name Role Phone IoanaHuy peraltarey Kary DO Unavailable [phone] Ming Triplett DO Primary Care Provider [phone] Encounter Details Date Type Department Care Team (Late Contact Info) Description 06/13/2023 Orders Only [facility] [address] [facility] [address] [place] [address] A, Unknown Practice [address] [place], [place] [phone] Social History Tobacco Use Types Packs/Day Years [...] Visit [facility] [address] [facility] [address] [place] [address] documented as of this encounter Procedures Procedure Name Priority Date/Time Associated Diagnosis Comments SCANNED LABS Routine 06/06/2023 10:51 AM EDT documented in this encounter Results * SCANNED LABS (06/06/2023 10:51 AM EDT) us Unknown Practice A LAB CHG PERFORMABLES Final Re sult documented in this encounter Visit Diagnoses Not on filedocumented in this encounter Care Teams Trim Stencil Maker Relationship Specialty Start Date End Date Ming Triplett DO [address] [place] [address] PCP - Medical [place] [employer] 10/06/21 10/05/99 Ming Triplett DO [address] [place] [address] PCP - General Internal Medicine 05/02/23 documented as of this encounter
--- OUTSIDE RECORDS SUMMARY | 2025-05-04 07:40 | XMS_ITS | Clinical Summary ---
Author Organization [facility] Address [address] [place] [address], [address] [place] [address] Care Team Providers Care Crane Hooker Name Role Phone Ioana, Ming Kary NAVA Primary Care Provider + [phone] Allergies Active Allergy Reactions Criticality Noted Date [...] Treatment Not on file Insurance [address] [place] [address] [employer] Care Teams Crane Hooker Relationship Specialty Start Date End Date Ming Triplett DO [address] [place] [address] PCP - General Internal Medicine 08/02/19
--- OUTSIDE RECORDS SUMMARY | 2025-05-04 07:40 | XMS_ITS | Clinical Summary ---
Author Organization [facility] Address [address] [place] [address] Phone Care Team Providers Care Business Editor Name Role Phone Ming Triplett DO Primary Care Provider [phone] Social History Tobacco Use Types Packs/Day Years Used Date Smoking Tobacco: Never Assessed Comments Unknown Sex and Gender Information Value Date Recorded Sex Assigned at Not on file Legal Sex Female 7:01 PM EST Gender Identity Not on file Sexual Orientation Not on file Plan of Treatment Not on file Care Teams Business Editor Relationship Specialty Start Date End Date Ming Triplett DO [address] [place] [address] PCP - General 01/06/19
--- OUTSIDE RECORDS SUMMARY | 2025-05-04 07:40 | XMS_ITS ---
Author Organization [facility] Address [address] [place] [address] Care Team Providers Care Lane Marker Installer Name Role Phone Sita Camp Unavailable Ming Triplett MD Primary Care Provider [phone] Patrick Sam MD Unavailable Nelson Davies MD Unavailable Romero Zamarripa CNP Unavailable [phone] Transplant Episode Kidney Recipient [facility] ([place], [place]) - [facility] Organ Received: Right Kidney Transplanted on 09/20/2022 Marked as Active Follow-up on 09/20/2022 Kidney CoordinatorDanica Deshpande RN Phone: N/A Fax: N/A Email: N/A [place] Organ Diagnosis Organ Primary Contributory Kidney Polycystic [...] Team Name Role Phone Fax Email Danica Deshpande RN Kidney Coordinator N/A N/A N/A Yaneth Camp MD Referring Physician [phone] N/A Ana Smith Txp Human Resources Benefits Specialist N/A N/A N/A Aguila Parrish MD Surgeon [phone] N/A Ashley Rahman Txp Human Resources Benefits Specialist N/A N/A N/A Blu Martinez MD Intelligence Agent [phone] N/A Events Post-Transplant Pre-Transplant Admitted: 09/19/2022 Referred: 10/31/2020 Transplanted: 09/20/2022 Evaluation began: 2 Discharged: 09/23/2022 Committee: 02/25/2022 Center waitlisted: 2 Appointments (04/04/2025 - 06/04/2025) When With Visit Type Description 05/18/2025 Transplant - Kary Concepcion U p Appointment
--- OUTSIDE RECORDS SUMMARY | 2025-05-04 07:40 | XMS_ITS | Clinical Summary ---
Author Organization [facility] Address [address] [facility] [place] [address] Care Team Providers Care Agricultural Real Estate Agent Name Role Phone Ming Triplett DO Unavailable [phone] Ming Triplett DO Primary Care Provider Allergies Active Allergy Reactions Criticality Noted Date Comments Allopurinol Rash Low 02/17/2023 Venlafaxine 03/15/2024 Other Reaction(s): Rash, hives Venlafaxine Hcl 02/17/2023 Other Reaction(s): bad side effect Medications ferrous sulfate 325 (65 Fe) MG tablet Take 1 tablet by mouth every other day. 07/10/20 21 Active mycophenolate (Myfortic) 180 MG EC tablet Take 4 tablets by mouth in the morning and 4 tablets before bedtime. Active pravastatin (Pravachol) 40 MG tablet Take by mouth at bedtime Active KLOR-CON 20 MEQ ER tablet Take 20 mEq by mouth Daily Active amLODIPine (Norvasc) 10 MG tabletIndication s:Benign essential hypertension TAKE 1 TABLET BY MOUTH EVERY DAY IN THE MORNING 90 tablet 3 06/28/20 24 Active magnesium oxide (Mag-Ox) 400 (240 Mg) MG tablet TAKE 2 TABLETS BY MOUTH IN THE MORNING AND 2 TABLETS AT BEDTIME 06/22/20 24 Active DULoxetine (Cymbalta) [address] capsule Take 30 mg by mouth in the morning and 30 mg before bedtime. Take with 60 MG tablet. Active DULoxetine (Cymbalta) [address] capsule Take 60 mg by mouth Daily Take with 30 MG tablet Active Envarsus XR 0.75 MG tablet ER 09/06/20 24 Active tiZANidine (Zanaflex) 4 MG tablet Take 4 mg by mouth at bedtime 08/31/20 24 Active semaglutide (Ozempic, 1 MG/DOSE,) 4 MG/3ML solution pen-injectorIndi cations:Type 2 diabetes mellitus with other specified complication, without long-term current use of insulin (HCC) INJECT 1 MG UNDER THE SKIN 1 (ONE) TIME PER WEEK 9 mL 3 11/01/19 25 Active Semaglutide, 2 MG/DOSE, (Ozempic, 2 MG/DOSE,) 8 MG/3ML solution pen-injectorIndi cations:Type 2 diabetes mellitus with stage 3a chronic kidney disease, without long-term current use of insulin (HCC) Inject 2 mg under the skin 1 (one) time per week 12 mL 1 01/04/20 25 Active tacrolimus ER (Envarsus XR) 1 MG tablet ER Take 2 tablets by mouth in the morning. 025 Discontinued methenamine hippurate (Hiprex) 1 g tablet TAKE 1 TABLET (1 G) BY MOUTH TWO TIMES DAILY. 025 Discontinued(Th erapy completed) Active Problems Problem Noted Date Diagnosed Date Class 1 obesity due to exces s calories with serious comorbidity and body mass index (BMI) of 34.0 to 34.9 in adult 04/11/2025 Anemia of renal disease 04/16/2024 Polycystic kidney disease 04/16/2024 Secondary hyperparathyroidism 04/16/2024 Tonsillolith 04/16/2024 Polyarthritis of multiple sites 06/10/2023 Benign essential hypertension 03/04/2023 Fibromyalgia 03/04/2023 MICHELLE (iron deficiency anemia) 03/04/2023 Renal transplant recipient 03/04/2023 Type 2 [...] Resolved Date Stage 3a chronic kidney disease 10/01/2024 01/03/2025 NSTEMI (non-ST elevated myoc ardial infarction) 04/16/2024 04/11/2025 Chronic kidney disease, stage 5 04/16/2024 10/01/2024 HTN (hypertension) 03/04/2023 Hyperuricemia 03/04/2023 03/13/2023 IFG (impaired fasting glucose) 03/04/2023 03/13/2023 RADHA (obstructive sleep apnea) 03/04/2023 04/11/2025 CKD (chronic kidney disease) stage 4, GFR 15-29 ml/min 03/04/2023 03/13/2023 Gouty arthritis 03/04/2023 03/13/2023 Stage 4 chronic kidney disease 07/01/2022 10/01/2024 Encounters Date Type Department Care Team Description 04/18/2025 [facility] [address] [place] [address] Ming Triplett DO 04/11/2025 8:00 AM EDT Office [facility] [address] [place] [address] Ming Triplett DO Renal transplant recipient (HCC) (Primary Dx); Benign essential hypertension ; ADPKD (autosomal dominant polycystic kidney disease); Type 2 diabetes mellitus with stage 3a chronic kidney disease, without long-term current use of insulin ([facility]); Mixed anxiety and depressive disorder; Chronic fatigue; Encounter for general health examination; Class 1 obesity due to excess calories with serious comorbidity and body mass index (BMI) of 34.0 to 34.9 in adult; Fibromyalgia; Low vitamin D level; Dyslipidemia 04/11/2025 Travel 04/02/2025 Clinisync Result Encounter [facility] External Department Unsolicited Provider, Generic External Data 03/03/2025 Clinisync Result Encounter [facility] External Department Unsolicited Provider, Generic External Data from Last 3 Months Immunizations Immunization Administration Dates Next Due Influenza, High Dose Seasonal, Preservative Free 05/29/2020 Influenza, Injectable, MDCK, preservative free 10/11/2018 Influenza, Sherin Sarah Canin e Kidney, subunit, trivalent, injectable, [...] 124/82 01/03/2025 2:24 PM EDT Pulse 78 04/11/2025 8:08 AM EDT Temperature 36.6 C (97.8 F) 07/27/2024 8:34 AM EDT Respiratory Rate - - Oxygen Saturation 99% 04/11/2025 8:08 AM EDT Inhaled Oxygen Concentration - - Weight 83.3 kg (183 lb 9.6 oz) 04/11/2025 8:08 AM EDT Height 154.9 cm (5' 1 ) 04/11/2025 8:08 AM EDT Body Mass Index 34.69 04/11/2025 8:08 AM EDT Plan of Treatment Upcoming Encounters Date Type Department Care Team (Late st Contact Info) Description 10/17/2025 8:30 AM EST Office Visit [facility] [place] [facility] [address] [place] [address] Health Maintenance Due Date Last Done Comments CT Colonography 1975 FIT-DNA 1975 FIT 1975 FOBT 1975 Sigmoidoscopy 1975 Diabetes: Retinopathy Screening 1985 Diabetes: Urine Protein Screening 07/29/2023 07/29/2022, 04/27/2022, 04/27/2022, Additional history exists Diabetes: Hemoglobin A1C 06/03/2025 025, 04/23/2024, 04/23/2024, Additional history exists Influenza Vaccine (#1) 2025 , 10/26/2023, 05/29/2020, Additional history exists Mammogram 08/25/2025 08/25/2024, 1003/2023, 07/16/2022, Additional history exists Colonoscopy 04/01/2032 04/01/2022 Colorectal Cancer Screening 04/01/2032 Cervical Cancer Screening Discontinued HPV/Cotest Discontinued 04/19/2024 Pap Smear Discontinued Procedures Procedure Name Priority Date/Time Associated Diagnosis Comments VITAMIN D 25 HYDROXY TOTAL Routine 04/15/2025 8:01 AM EDT Low vitamin D level T4, FREE Routine 04/15/2025 8:01 AM EDT Chronic fatigue T3, FREE Routine 04/15/2025 8:01 AM EDT Chronic fatigue TSH Routine 04/15/2025 8:01 AM EDT Chronic fatigue TACROLIMUS (FK506), BLOOD Routine 04/02/2025 8:16 AM EDT ALL CBC WITH AUTO DIFF Routine 04/02/2025 8:16 AM EDT METRO BILIRUBIN, DIRECT Routine 04/02/2025 8:16 AM EDT ALL MAGNESIUM Routine 04/02/2025 8:16 AM EDT ALL PHOSPHOROUS Routine 04/02/2025 8:16 AM EDT ALL URIC ACID Routine 04/02/2025 8:16 AM EDT [facility] CMP (CMP) (FOR REMOTE [facility] USE) Routine 04/02/2025 8:16 AM EDT TACROLIMUS (FK506), BLOOD Routine 03/03/2025 7:24 AM EDT BKV QUANT PCR Routine 03/03/2025 7:24 AM EDT MLR HEMOGLOBIN A1C Routine 03/03/2025 7: 24 AM EDT ALL LIPID PROFILE (FASTING) Routine 03/03/2025 7:24 AM EDT METRO BILIRUBIN, DIRECT Routine 03/03/2025 7:24 AM EDT ALL MAGNESIUM Routine 03/03/2025 7:24 AM EDT ALL PHOSPHOROUS Routine 03/03/2025 7:24 AM EDT ALL URIC ACID Routine 03/03/2025 7:24 AM EDT [facility] CMP (CMP) (FOR REMOTE [facility] USE) Routine 03/03/2025 7:24 AM EDT ALL CBC WITH AUTO DIFF Routine 03/03/2025 7:24 AM EDT BI MAMMOGRAM SCREENING TOMOSYNTHESIS BILATERAL 08/25/2024 3:23 PM EST THINPREP IMAGING PAP W/REFL HPV MRNA E6/E7 Routine 04/19/2024 12:00 AM EDT Encounter for Papanicolaou smear of vagina POCT GLYCOSYLATED HEMOGLOBIN (HGB A1C) Routine 06/10/2023 4:14 PM EDT Type 2 diabetes mellitus with stage 3a chronic kidney disease, without long-term current use of insulin (HCC) URINE T PROTEIN CREAT RATIO Routine 07/29/2022 COLONOSCOPY Routine 04/01/2022 12:00 PM EDT from Last 3 Months or Most Recently Relevant to Health Maintenance Results * Vitamin D 25 hydroxy (04/15/2025 8:01 AM EDT) Vitamin D, 25-Hydroxy 53.3 30.0 - 100.0 ng/mL [facility] Comment: Vitamin D deficiency has been defined by the [place] [employer] and an Endocrine Society practice guideline as a level of serum 25-OH vitamin D less than 20 ng/mL (1,2). The Endocrine Society went on to further define vitamin D insufficiency as a level between 21 and 29 ng/mL (2). 1. IOM ([place] [employer]). 2010. Dietary reference intakes for calcium and D. [place]: The National Academies Press. 2. Chantel MF, Landen NC, Eliseo CARDOZA, et al. Evaluation, treatment, and prevention of vitamin D deficiency: an Endocrine Society clinical practice guideline. JCEM. 2010; 96(7):1911-30. Blood Venous blood specimen / Unknown 04/15/2025 8:01 AM EDT 04/15/2025 Narrative [facility] - 04/16/2025 7:06 AM EDT Performed at: [address] [id number] Care Administrative Tech: Gabriel Whitman PhD, Phone: [phone] us Ming Triplett DO LAB BLOOD ORDERABLES Final R esult [facility] * T3, free (04/15/2025 8:01 AM EDT) T3, FREE 3.1 2.0 - 4.4 pg/mL [facility] Blood Venous blood specimen / Unknown 04/15/2025 8:01 AM EDT 04/15/2025 Narrative [facility] - 04/16/2025 7:06 AM EDT Performed at: [address] [place] [id number] Care Administrative Tech: Gabriel Whitman PhD, Phone: [phone] Ming Triplett DO LAB BLOOD ORDERABLES Final R esult Performing Organization Address City/[facility] Co de Phone Number [facility] * TSH (04/15/2025 8:01 AM EDT) TSH 2.560 0.450 - 4.500 uIU/mL [facility] Blood Venous blood specimen / Unknown 04/15/2025 8:01 AM EDT 04/15/2025 Narrative [facility] - 04/16/2025 7:06 AM EDT Performed at: [address] [place] [id number] Care Administrative Tech: Gabriel Whitman PhD, Phone: [phone] Ming Triplett DO LAB BLOOD ORDERABLES Final R esult Performing Organization Address City/[facility] Co de Phone Number [facility] * T4, free (04/15/2025 8:01 AM EDT) T4Free(Direct) 1.03 0.82 - 1.77 ng/dL [facility] Blood Venous blood specimen / Unknown 04/15/2025 8:01 AM EDT 04/15/2025 Narrative [facility] - 04/16/2025 7:06 AM EDT Performed at: [address] [place] [id number] Care Administrative Tech: Gabriel Whitman PhD, Phone: [phone] Ming Triplett DO LAB BLOOD ORDERABLES Final R esult [facility] * TACROLIMUS (FK506), BLOOD (04/02/2025 8:16 AM EDT) Only the most recent of2 resultswithin the time period is included. TACROLIMUS (FK506), BLOOD 5.4 5.0 - 20.0 ng/mL [facility] Comment: This test was developed and its performance characteristics determined by [employer]. It has not been cleared or approved by the Food and Drug Administration. Target steady state trough concentration for Tacrolimus varies based on type of organ transplant immunosuppressive protocol and other patient specific factors. Tacrolimus trough concentrations should be interpreted in conjunction with clinical assessments of rejection and tolerability. Values obtained with different assay methods cannot be used interchangeably due to differences in assay methods and cross-reactivty with metabolites, nor should correction factors be applied. Therefore, consistent use of one assay for individual patients is recommended. Detection Limit = 0.5 ng/mL Performed by LC-MS/MS technology. Performed at: [address] [id number] Care Administrative Tech: Jose De Los Santos MD, Phone: [phone] 04/02/2025 8:16 AM EDT 04/02/2025 8:24 AM EDT Narrative [facility] - 04/06/2025 6:07 AM EDT Generic External Data Provider LAB BLOOD ORDERAB LES Final [facility] METRO BILIRUBIN, DIRECT (04/02/2025 8:16 AM EDT) Only the most recent of2 resultswithin the time period is included. BILIRUBIN DIRECT 0.1 0.0 - 0.2 mg/dL [facility] 04/02/2025 8:16 AM EDT 04/02/2025 8:24 AM EDT Narrative [facility] - 04/02/2025 9:42 AM EDT us Generic External Data Provider [facility] F inal Result [facility] * (ABNORMAL) [facility] CMP (CMP) (FOR REMOTE [facility] USE) (04/02/2025 8:16 AM EDT) Only the most recent of2 resultswithin the time period is included. SODIUM 142 136 - 145 mmol/L [facility] POTASSIUM 3.2(L) 3.5 - 5.1 mmol/L [facility] CHLORIDE 105 98 - 107 mmol/L [facility] CARBON DIOXIDE 24.5 21.0 - 32.0 mmol/L [facility] ANION GAP 15.7 [facility] GLUCOSE 114(H) 74 - 106 mg/dL [facility] BLOOD UREA NITROGEN 14.0 7.0 - 18.0 mg/dL [facility] CREATININE 1.18(H) 0.55 - 1.02 mg/dL [facility] EGFR-AF DANISH 59(L) >=60 mL/min/1. 73m 2 TB[facility] EGFR-NON AF DANISH 49(L) >=60 mL/min/1. 73m 2 [facility] BUN CREATININE RATIO 11.9 [facility] CALCIUM 9.3 8.5 - 10.1 mg/dL [facility] BILIRUBIN TOTAL 0.4 0.2 - 1.0 mg/dL [facility] ASPARTATE AMINO TRANSFERASE 16 15 - 37 U/L [facility] ALANINE AMINOTRANSFERASE 22 14 - 59 U/L [facility] ALKALINE PHOSPHATASE 90 46 - 116 U/L [facility] TOTAL PROTEIN 7.7 6.4 - 8.2 g/dL [facility] ALBUMIN LEVEL 3.8 3.4 - 5.0 g/dL [facility] GLOBULIN 3.9 g/dL [facility] ALBUMIN GLOBULIN RATIO 1.0 [facility] 04/02/2025 8:16 AM EDT 04/02/2025 8:24 AM EDT Narrative [facility] - 04/02/2025 9:42 AM EDT Generic External Data Provider [facility]NC F inal Result [facility] * ALL URIC ACID (04/02/2025 8:16 AM EDT) Only the most recent of2 resultswithin the time period is included. URIC ACID 5.0 2.6 - 6.0 mg/dL [facility] 04/02/2025 8:16 AM EDT 04/02/2025 8:24 AM EDT Narrative [facility] - 04/02/2025 9:42 AM EDT Generic External Data Provider CLIN[facility] F inal Result Performing Organization Address [facility] de Phone Number [facility] * ALL PHOSPHOROUS (04/02/2025 8:16 AM EDT) Only the most recent of2 resultswithin the time period is included. PHOSPHORUS 3.5 2.6 - 4.7 mg/dL [facility] 04/02/2025 8:16 AM EDT 04/02/2025 8:24 AM EDT Narrative [facility] - 04/02/2025 9:42 AM EDT Generic External Data Provider CLINISYNC F inal Result Performing Organization Address [facility] de Phone Number [facility] * ALL MAGNESIUM (04/02/2025 8:16 AM EDT) Only the most recent of2 resultswithin the time period is included. MAGNESIUM 1.8 1.8 - 2.4 mg/dL [facility] 04/02/2025 8:16 AM EDT 04/02/2025 8:24 AM EDT Narrative [facility] - 04/02/2025 9:42 AM EDT Generic External Data Provider CLIN[facility]NC F inal Result Performing Organization Address [facility] de Phone Number [facility] * (ABNORMAL) ALL CBC WITH AUTO DIFF (04/02/2025 8:16 AM EDT) Only the most recent of2 resultswithin the time period is included. [facility] WBC 8.6 4.0 - 11.0 10 3/uL [facility] TBH RBC 4.64 4.20 - 5.40 10 6/uL [facility] TBH HGB 13.6 12.0 - 16.0 g/dL [facility] TBH HCT 40.1 36.0 - 48.0 % [facility] TBH MCV 86.4 81.0 - 99.0 fL [facility]H TBH MCH 29.3 26.7 - 34.0 pg TBH TB MCHC 33.9 29.9 - 35.2 g/dL [facility] TBH RDW 14.1 11.0 - 15.0 % [facility] TBH PLT 334 150 - 450 10 3/uL [facility] TBH MPV 8.7(L) 9.5 - 13.5 fL [facility] NEUTROPHILS PERCENT AUTO 69.8 43.0 - 75.0 % [facility] LYMPHOCYTES PERCENT AUTO 20.2(L) 20.5 - 60.0 % [facility] MONOCYTES PERCENT AUTO 5.4 1.7 - 12.0 % [facility]H EO % 3.4 0.9 - 7.0 % [facility] BASOPHILS PERCENT AUTO 0.7 0.2 - 2.0 % [facility] IMMATURE GRANULOCYTES PCT AUTO 0.5 0.0 - 0.5 % TB[facility] NEUTROPHILS ABSOLUTE AUTO 6.0 1.4 - 6.5 10 3/uL TB[facility] LYMPHOCYTES ABSOLUTE AUTO 1.7 1.2 - 3.8 10 3/uL [facility] MONOCYTES ABSOLUTE AUTO 0.5 0.3 - 0.8 10 3/uL TB[facility] TBH EO # 0.3 0.0 - 0.7 10 3/uL TB[facility] BASOPHILS ABSOLUTE AUTO 0.1 0.0 - 0.1 10 3/uL [facility] IMMATURE GRANULOCYTES ABS AUTO 0.04(H) 0.00 - 0.03 10 3/uL [facility] 04/02/2025 8:16 AM EDT 04/02/2025 8:24 AM EDT Narrative [facility] - 04/02/2025 9:52 AM EDT us Generic External Data Provider [facility] F inal Result [facility] * BKV QUANT PCR (03/03/2025 7:24 AM EDT) [facility] BKV DNA, QUANT PCR, PLASMA Negative Negative IU/mL [facility] Comment: No BK DNA detected. The linear range of the assay is 22 - 100,000,000 IU/mL. Performed at: [address] [id number] Care Administrative Tech: Jose De Los Santos MD, Phone: [phone] [id number] BKV DNA,PLASMA TNP . [facility] 03/03/2025 7:24 AM EDT 03/03/2025 7:28 AM EDT Narrative [facility] - 03/05/2025 11:08 AM EDT Generic External Data Provider LAB BLOOD ORDERAB LES Final Result Performing Organization Address [facility] Co de Phone Number [facility] * MLR HEMOGLOBIN A1C (03/03/2025 7:24 AM EDT) [facility] GLYCOHEMOGLOBIN A1C 5.5 4.5 - 6.2 % [facility] Comment: ADA RECOMMENDED LIMIT 4.0 - 6.0 ADA THERAPEUTIC TARGET < 7.0 ACTION SUGGESTED > 7.0 ESTIMATED AVERAGE GLUCOSE 111 mg/dL [facility] 03/03/2025 7:24 AM EDT 03/03/2025 7:28 AM EDT Narrative [facility] - 03/03/2025 8:55 AM EDT Generic External Data Provider CLINIS[facility]NC F inal Result Performing Organization Address [facility] Co de Phone Number [facility] * (ABNORMAL) ALL LIPID PROFILE (FASTING) (03/03/2025 7:24 AM EDT) [facility] TRIGLYCERIDES 167(H) <=150 mg/dL TB CHOLESTEROL 181 <=200 mg/dL [facility] HDL CHOLESTEROL 54 40 - 60 mg/dL [facility] Comment: > or =60 mg/dl - LOW CARDIOVASCULAR RISK <40 mg/dl - HIGH CARDIOVASCULAR RISK LDL CHOLESTEROL CALCULATED 94.0 mg/dL [facility] Comment: <100 mg/dl OPTIMAL 100-129 mg/dl NEAR OR ABOVE OPTIMAL 130-159 mg/dl BORDERLINE HIGH 160-189 mg/dl HIGH >190 mg/dl VERY HIGH VLDL CHOLESTEROL 33.4 mg/dL [facility] CHOL HDL RATIO 3.4 [facility] Comment: 3.3 - 4.4 LOW RISK 4.4 - 7.1 AVERAGE RISK 7.1 - 11.0 MODERATE RISK >11.0 HIGH RISK 03/03/2025 7:24 AM EDT 03/03/2025 7:28 AM EDT Narrative [facility] - 03/03/2025 8:23 AM EDT us Generic External Data Provider [facility] F inal Result [facility] * Bilateral screening mammogram with tomosynthesis (08/25/2024 [...] mammogram. Impression dictated by: Evan Messina Jr., DSonOSon08/25/2024 3:24 PM Dictation Location: [facility] Transcribed By: [facility] 08/25/24 1524 Dictated By: Evan Messina Jr, DO 08/25/24 1523 Signed By: <Electronically signed by Evan Messina Jr, DO in OV> 08/25/24 1524 Narrative 08/25/2024 3:26 PM EST [place] [address] Mammography Report Signed Patient: Patsy Puri MR#: [id number] 15 : 1975 Acct:[id number] Age/Sex: 48 / F ADM Date: 08/25/24 Loc: [place] Room: Type: [facility] CLI Attending Dr: Blake Hinojosa DO Copies [...] Procedure Note Radiology, Radiologist, MD - 08/25/2024 [facility] [place] [address] [place] [address] Mammography Report Signed Patient: Patsy Puri LMR#: [id number] 15 : 1975Acct:[id number] Age/Sex: 48 / FADM Date: 08/25/24 Loc: [place] Room:Type: [facility] Attending Dr: Blake Hinojosa DO [...] Messina Jr., D.O.08/25/2024 3:24 PM Dictation Location: [facility] Transcribed By: [facility] 08/25/24 1524 Dictated By: Evan Messina Jr, DO 08/25/24 1523 Signed By: <Electronically signed by Evan Messina Jr, DO inOV> 08/25/24 1524 us Blake Hinojosa DO IMG BI PROCEDURES Final Resu lt * THINPREP IMAGING PAP W/REFL HPV MRNA E6/E7 (04/19/2024 12:00 AM EDT) CLINICAL INFORMATION [facility] Comment:None given LMP [facility] PRE[facility] PAP [facility] Comment:NEG PREV. BX [facility] Comment:None given SOURCE [facility] Comment:None given STATEMENT OF ADEQUACY [facility] Comment:SATISFACTORY FOR KHANG LUATION INTERPRETATION/RESUL T [facility] Comment: Cytology Results: Negative for intraepithelial lesion or malignancy. COMMENT [facility] Comment: This Pap test has been evaluated with computer assisted technology. DOCTOR OF NAPRAPATHIC MEDICINE [facility] Comment: Reference Range: ZL, CT(ASCP) CT screening location: [address] [place], [address] [place] [address]. (ALWAYS MESSAGE) [facility] Comment: EXPLANATORY NOTE: The [...] Performing Organization Information Site ID: [id number] Name: [address] [facility] Address: [address] [place] [id number] Director: Bran Flowers MD us Blake Hinojosa DO LAB CYTOLOGY ORDERABLES Casie l Result [facility] * (ABNORMAL) POCT glycosylated hemoglobin (Hb [...] LAB: see note [facility] Comment:[address] Laboratory - [address] [place] [address] ,Ext. [phone] 07/29/2022 Ming Triplett DO [facility] Final Result Performing Organization Address [facility] Co de Phone Number [facility] * Colonoscopy (04/01/2022 12:00 PM EDT) Anatomical Region Laterality Modality Endoscopy 04/01/2022 12:0 0 PM EDT Narrative 04/01/2022 12:00 PM EDT PERFORMED AT [facility] LOCATION:[id number] diverticulosis Procedure Note CONVERSION, GENERIC - 02/19/2023 PERFORMED AT [facility] LOCATION:[id number] diverticulosis Ming Triplett DO ENDOSCOPY PROCEDURE ORDERABL ES Final Result from Last 3 Months or Most Recently Relevant to Health Maintenance Insurance [employer] Care Teams Agricultural Real Estate Agent Relationship Specialty Start Date End Date Ming Triplett DO [address] [facility] [address] [place] [address] PCP - Medical [place] [employer] 10/06/21 10/05/99 Ming Triplett DO [address] [facility] [address] [place] [address] PCP - General Internal Medicine 05/02/23
--- OUTSIDE RECORDS SUMMARY | 2025-05-04 07:40 | XMS_ITS | Encounter Summary ---
Author Organization [facility] Address [address] [place] [address] Care Team Providers Care Cut Off Saw Tender Metal Name Role Phone Sita Camp Unavailable Ming Triplett MD Primary Care Provider [phone] Patrick Sam MD Unavailable Nelson Davies MD Unavailable Romero Zamarripa CNP Unavailable [phone] Reason for Visit * Reason Comments Med Refill Encounter Details Date Type Department Care Team (Late st Contact Info) Description 09/24/2024 Refill [facility] Transplant [address] [place] [address] Nelson Davies MD [address] [place] [address] History of kidney transplant Social History Tobacco Use Types Packs/Day Years Used Date Smoking Tobacco: Never Passive Smoke Exposure: Never Smokeless Tobacco: Never Alcohol Use Standard Drinks/Week Comments Not Currently 0 (1 standard drink = 0.6 oz pur e alcohol) 2-3 a year , wine PHQ-2 Answer Date Recorded Patient Health Questionnaire-2 Score 0 07/07/2024 [facility] Answer Date Rec orded Fear of Current or Ex-Partner Not on file Emotionally Abused Not on file 11/27/2023 Physically Abused Not on file 11/27/2023 Sexually Abused Not on file 11/27/2023 Physically or Sexually Abused Not on file Comments No Sex and Gender Information Value Date Recorded Sex Assigned at Female 07/13/2022 9:44 AM EDT Legal Sex Female 12:44 AM EDT Gender Identity Female 07/13/2022 9:44 AM EDT Sexual Orientation Choose not to disclose 2021 9:44 AM EDT documented as of this encounter Plan of Treatment Upcoming Encounters Date Type Department Care Team (Late st Contact Info) Description 05/18/2025 1:00 PM EDT Follow-Up [facility] Transplant [address] [place] [phone] Ty Concepcion, ALESHA [address] [place], [place] [id number] documented as of this encounter Visit Diagnoses Diagnosis History of kidney transplant Kidney replaced by transplant documented in this encounter Care Teams Cut Off Saw Tender Metal Relationship Specialty Start Date End Date Ming Triplett MD [address] PCP - General 07/13/22 Yaneth Camp MD [address] [place] [address] Referring Physician 07/08/22 Patrick Sam MD [facility] [facility] [address] [place] [phone] Consulting Physician Urology 07/15/22 Nelson Davies MD [address] [place] [phone] Consulting Physician Urology 08/12/22 Romero Zamarripa, ALESHA [address] [place] [phone] Nurse Practitioner Urology 12/23/23 documented as of this encounter
--- OUTSIDE RECORDS SUMMARY | 2025-05-04 07:40 | XMS_ITS | Encounter Summary ---
Author Organization [facility] Address [address] [place] [address] Care Team Providers Care Grain Mill Products Inspector Name Role Phone Sita Camp Unavailable Ming Triplett MD Primary Care Provider [phone] Patrick Sam MD Unavailable Nelson Davies MD Unavailable Romero Zamarripa CNP Unavailable [phone] Reason for Visit * Reason Comments Med Refill Encounter Details Date Type Department Care Team (Late st Contact Info) Description 07/17/2023 Refill [facility] [address] [place] [address] Tori Magdaleno MD [address] [facility] [place] [address] Hypokalemia; Aftercare following organ transplant Social History Tobacco Use Types Packs/Day Years Used Date Smoking Tobacco: Never Smokeless Tobacco: Never Alcohol Use Standard Drinks/Week Comments Not Currently 0 (1 standard drink = 0.6 oz pur e alcohol) PHQ-2 Answer Date Recorded Patient Health Questionnaire-2 Score 0 04/16/2023 Comments No Sex and Gender Information Value [...] Info) Description 05/18/2025 1:00 PM EDT Follow-Up [facility] Transplant [address] [place] [phone] Ty Concepcion CNP [address] [place] [id number] documented as of this encounter Visit Diagnoses Diagnosis Hypokalemia Hypopotassemia Aftercare following organ transplant documented in this encounter Care Teams Grain Mill Products Inspector Relationship Specialty Start Date End Date Ming Triplett MD [address] PCP - General 07/13/22 Yaneth Camp MD [address] [place] [address] Referring Physician 07/08/22 Patrick Sam MD [facility] [facility] [address] [place] [address] Consulting Physician Urology 07/15/22 Nelson Davies MD [address] [place] [address] Consulting Physician Urology 08/12/22 Romero Zamarripa CNP [address] [place] [address] Nurse Practitioner Urology 12/23/23 documented as of this encounter
--- OUTSIDE RECORDS SUMMARY | 2025-05-04 07:40 | XMS_ITS | Encounter Summary ---
Author Organization [facility] [place] Address [address] [place] [address] Care Team Providers Care Lacer And Tier Name Role Phone Sita Camp Unavailable Ming Triplett MD Primary Care Provider Patrick Sam MD Unavailable Nelson Davies MD Unavailable Romero Zamarripa CNP Unavailable Reason for Visit * Reason Onset Date Comments Med Refill 11/18/2022 Encounter Details Date Type Department Care Team (Late st Contact Info) Description 11/18/2022 Refill [facility] Urology [address] [place] [address] Paty Ansari, TECH WRITER [address] [facility] [address] [place] [address] Kidney transplanted Social History Tobacco Use Types Packs/Day Years Used Date Smoking Tobacco: Never Smokeless Tobacco: Never Alcohol Use Standard Drinks/Week Comments Not Currently 0 (1 standard drink = 0.6 oz pur e alcohol) PHQ-2 Answer Date Recorded Patient Health Questionnaire-2 Score 0 10/23/2022 Comments No Sex and Gender Information Value [...] Info) Description 05/18/2025 1:00 PM EDT Follow-Up [facility] Transplant [address] [place] [phone] Ty Concepcion CNP [address] [place], [place] [id number] documented as of this encounter Visit Diagnoses Diagnosis Kidney transplanted Kidney replaced by transplant documented in this encounter Care Teams Lacer And Tier Relationship Specialty Start Date End Date Ming Triplett MD [address] PCP - General 07/13/22 Yaneth Camp MD [address] [place] [address] Referring Physician 07/08/22 Patrick Sam MD [facility] [facility] [address] [place] [phone] Consulting Physician Urology 07/15/22 Nelson Davies MD [address] [place] [phone] Consulting Physician Urology 08/12/22 Romero Zamarripa, ALESHA [address] [place] [phone] Nurse Practitioner Urology 12/23/23 documented as of this encounter
--- OUTSIDE RECORDS SUMMARY | 2025-05-04 07:40 | XMS_ITS | CCD ---
Author Organization [facility] Care Team Providers Care District Supervisor Name Role Phone Ming Espinoza Primary Care Provider VIDAL MADRIGAL Attending Unavailable MING ESPINOZA Primary Care Unavailable Toni, Yaneth Unavailable Shabbir Jones Unavailable Dipika Stinson Unavailable Jesus Parham Unavailable DO Ming Espinoza Primary Care Provider [phone] MD Shabbir Jones Attending Provider MD Yaneth Muñoz Attending Provider MD Jesus Parham Attending Provider Estefania Vo Unavailable DO Ming Espinoza Primary Care Provider EB Forman Emergency Provider DO Blake Hinojosa Attending Provider [phone] ANGELAC, DR ZARAGOZA Admitting Unavailable DR MING [...] Unavailable TONI, YANETH Consulting Unavailable DO Alexis Avon Primary Care Provider MD Perri Ceja Attending Provider CECILIA Edwards Attending Provider Ming Espinoza DO A Unavailable Ming Espinoza DO Primary Care Provider DO Alexis Avon Primary Care Provider MD Jesus Ayala Attending Provider [phone] DO Blake Hinojosa Referring Provider Alexis NAVA Ming Primary Care Provider [phone] Jesus Ayala MD Attending Provider Blake Hinojosa DO Referring Provider Blake Hinojosa DO Attending Provider Sujit Monterroso MD Attending Provider Perri Ceja [...] Hinojosa Attending Unavailable MING ESPINOZA Attending Unavailable MING ESPINOZA Attending Unavailable MUNIRA PHAN Referring Unavailable BLAKE HINOJOSA Attending Unavailable BLAKE HINOJOSA Referring Unavailable MING ESPINOZA Referring Unavailable BLANCHE HUDSONSSJAZMYN Moctezuma Attending Unavailable BLAKE HINOJOSA Attending Unavailable BLAKE HINOJOSA Attending Unavailable MING ESPINOZA Attending Unavailable SREE BLANCHARD Referring Unavailable LEO BATRES Attending Unavailable SREE BLANCHARD Attending Unavailable LO, SREE Attending Unavailable DOLORES, SUJIT Referring Unavailable MUNIRA PHAN Attending Unavailable Allergies Allergy Classification Reported Allergen(s) Allergy Type Date of Onset Reaction(s) Facility (20 sources) Allopurinol; Translations: [ALLOPURINOL] Drug Allergy 9 hives, Rash [place], [place] (20 sources) venlafaxine; Translations: [venlafaxine] Drug Allergy 2 Rash, Rash, hives [facility] (20 sources) venlafaxine; Translations: [VENLAFAXINE HCL] Drug Allergy 1 [facility] (1 source) Allopurinol Drug Allergy 4 [facility] Repository Medications Current Medications Medication Drug Class(es) Dates Sig (Normalized) Sig (Original) amLODIPine 10 mg oral tablet (20 sources) Dihydropyridine Calcium Channel Eliz Start: 08-21-2023 take 1 tablet by mouth once daily in the morning amLODIPine (Norvasc) 10 MG tablet Indications: Benign essential hypertension TAKE 1 TABLET BY MOUTH [...] acid 7540 MG / polyethylene glycol 3350 36458 MG / potassium chloride 1200 MG / sodium ascorbate 09310 MG / sodium chloride 3200 MG Powder for Oral Solution) / 1 (polyethylene glycol 3350 091011 MG / potassium chloride 1000 MG / sodium chloride 2000 MG / sodium sulfate 9000 MG Powder for Oral Solution) } Pack [Plenvu] (1 source) Osmotic Laxative, Vitamin C Start: 02-26-2022 Plenvu 140 GM dose 1 pouch at 4pm, dose 2 pouch A & B at 11pm Orally twice a day for 1 days BIN:[id number] PCN: [id number] GROUP:[id number] ID:[id number] February, Active cephalexin 500 mg oral capsule [...] Start: 03-15-2024 take 2 tablets by mo [facility] in the morning magnesium oxide (Mag-Ox) 400 (240 Mg) MG tablet TAKE 2 TABLETS BY MOUTH IN THE MORNING AND 2 TABLETS AT BEDTIME 06/22/2024 Active methenamine hippurate 1000 mg oral tablet (18 sources) End: 04-11-2025 take 1 tablet by mouth twice daily methenamine hippurate (Hiprex) 1 g tablet TAKE 1 TABLET (1 G) BY MOUTH TWO TIMES DAILY. 04/11/2025 Discontinued (Therapy completed) Multivitamin (Multiple Vitamins) tablet (4 sources) Start: [...] (Ozempic, 1 MG/DOSE,) 4 MG/3ML solution pen-injector (20 sources) Start: 11-01-2024 inject 1 mg by [...] (Ozempic, 2 MG/DOSE,) 8 MG/3ML solution pen-injector (5 sources) Start: 01-03-2025 inject 2 mg by subcutaneous injection every week Semaglutide, 2 MG/DOSE, (Ozempic, 2 MG/DOSE,) 8 MG/3ML solution pen-injector Indications: Type 2 diabetes mellitus with stage 3a chronic kidney disease, without long-term current use of insulin (HCC) Inject 2 mg under the skin 1 (one) time per week 12 mL 1 01/03/2025 Active Start: 01-03-2025 inject 2 mg by subcu taneous injection every week Semaglutide, 2 MG/DOSE, (Ozempic, 2 MG/DOSE,) 8 MG/3ML solution pen-injector Indications: Type 2 diabetes mellitus with stage 3a chronic kidney disease, without long-term current use of insulin (HCC) ([facility]/HCC) Inject 2 mg under the skin 1 [...] tablet E R 09/06/2024 Active Start: 03-15-2024 End: 04-11-2025 Tacrolimus (Envarsus Xr) 1 m g tablet extended release 24 hr Active MG PO March 14, 2024 11:00pm tiZANidine 4 mg oral tablet (19 sources) Central alpha-2 Adrenergic Agonist Start: 08-31-2024 [...] Start: 08-02-2019 take 2 tablets by mo [facility] once daily as needed for pain Acetaminophen (Tylenol Extra Strength) 500 mg Tablet Active 1000 MG PO Daily as needed for Muscle Pain August 01, 2019 11:00pm calcitriol 0.31395 mg oral capsule (9 sources) Vitamin D3 [...] Ergocalciferol (Vitamin D2) 50,000 unit capsule Discontinued 38286 UNIT PO every month January 19, 2019 [...] Translations: [Chronic renal failure, stage 4 (severe) ([facility])] Chronic Acute and unspecified renal failure (9 sources) Injury of kidney; Translations: [Acute kidney failure, unspecified] 01-19-2019 Episodic Anxiety disorders (20 sources) Anxiety; Translations: [Anxiety [...] asphyxia (1 source) Metabolic acidemia, unspecified Episodic Malaise and fatigue (2 sources) Fatigue; Translations: [Chronic fatigue, unspecified] 04-11-2025 Chronic Nutritional deficiencies (9 sources) Vitamin D deficiency; [...] arm] 06-20-2022 Episodic Other connective tissue disease (20 sources) Fibromyalgia; Translations: [Fibromyalgia] Onset: 3 03-04-2023 [...] nutritional; endocrine; and metabolic disorders (4 sources) Obesity caused by energy imbalance; Translations: [Class 1 obesity due to excess calories with serious comorbidity and body mass index (BMI) of 34.0 to 34.9 in adult] Onset: 5 04-11-2025 Chronic Other screening for suspected conditions (not mental disorders or infectious disease) (4 sources) Encounter for screening for malignant neoplasm of colon; Translations: [Encounter for screening mammogram for malignant neoplasm of breast] Onset: 2 Resolved: 2 Episodic Other upper respiratory infections (2 sources) Acute pansinusitis; Translations: [Acute pansinusitis, unspecified] 07-27-2024 Episodic Ovarian cyst (6 sources) Unspecified ovarian cyst, left side; Translations: [Cyst of left ovary] Onset: 2 Episodic Septicemia (except in labor) (10 sources) Sepsis; Translations: [Sepsis due to urinary tract infection] 08-03-2019 Episodic Unclassified (2 sources) Kidney Follow-up; Translations: [Kidney Follow-up] Onset: 4 Past or Other Problems Problem Classification Problem Date Documented Da te Episodic/Chronic Abdominal pain (2 sources) Pelvic and perineal pain; Translations: [Pelvic and perineal pain] Onset: 07-07-2024 Episodic Acute myocardial infarction (20 sources) Myocardial infarction; Translations: [Non-ST elevation (NSTEMI) myocardial infarction] Onset: 04-16-2024 Resolved: 04-11-2025 08-03-2019 Chronic Deficiency and other anemia (20 sources) [...] aftercare (20 sources) Transplant follow-up; Translations: [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] Onset: 10-23-2022 06-10-2023 Episodic Other non-traumatic joint disorders (1 source) Pain in unspecified joint; Translations: [Pain in unspecified joint] Onset: 11-06-2023 Episodic Other nutritional; endocrine; and metabolic disorders (20 sources) Hyperuricemia; Translations: [Hyperuricemia without signs of inflammatory arthritis and tophaceous disease] Onset: 03-04-2023 Resolved: 03-13-2023 01-19-2019 Episodic Otitis media and related conditions (1 source) Otitis media, unspecified, bilateral Onset: 04-30-2022 Resolved: 04-30-2022 Episodic Residual codes; unclassified (20 sources) Obstructive sleep apnea syndrome; Translations: [Obstructive sleep apnea (adult) (pediatric)] Onset: 03-04-2023 Resolved: 04-11-2025 03-04-2023 Chronic Urinary tract infections (20 sources) Acute cystitis; Translations: [Urinary tract infectious disease] Onset: 07-02-2024 05-15-2020 Episodic Results Test Name Value Interpretation Reference Range Facility ALL MAGNESIUMon 04-02-2025 Magnesium [Mass/Vol] 1.8 mg/dL 1.8 - 2 .4 mg/dL [facility] ALL PHOSPHOROUSon 04-02-2025 Phosphate [Mass/Vol] 3.5 mg/dL 2.6 - 4 .7 mg/dL [facility] ALL URIC ACIDon 04-02-2025 Urate [Mass/Vol] 5 mg/dL 2.6 - 6.0 mg/dL [facility] CMP (CMP) (FOR REMOTE FH C USE)on 04-02-2025 Albumin [Mass/Vol] 3.8 g/dL 3.4 - 5.0 g/dL [facility] ALBUMIN GLOBULIN RATIO 1 [facility] ALP [Catalytic activity/Vol] 90 U/L 46 - 116 U/L [facility] ALT [Catalytic activity/Vol] 22 U/L 14 - 59 U/L [facility] Anion gap [Moles/Vol] 15.7 mmol/L NO [facility] AST [Catalytic activity/Vol] 16 U/L 15 - 37 U/L [facility] Bilirubin [Mass/Vol] 0.4 mg/dL 0.2 - 1 .0 mg/dL [facility] Calcium [Mass/Vol] 9.3 mg/dL 8.5 - 10. 1 mg/dL [facility] Chloride [Moles/Vol] 105 mmol/L 98 - 10 7 mmol/L [facility] CO2 [Moles/Vol] 24.5 mmol/L 21.0 - 32.0 mmol/L [facility] Creatinine [Mass/Vol] 1.18 mg/dL High 0.55 - 1.02 mg/dL [facility] GFR/1.73 sq M.predicted CKD-EPI (S/P/Bld) [Vol rate/Area] 59 Low >=60 mL/min/1.73m 2 [facility] Globulin (S) [Mass/Vol] 3.9 g/dL N [facility] Glucose [Mass/Vol] 114 mg/dL High 74 - 106 mg/dL [facility] Interpretation and review of laboratory results Abnormal [facility] Potassium [Moles/Vol] 3.2 mmol/L Low 3.5 - 5.1 mmol/L [facility] Protein [Mass/Vol] 7.7 g/dL 6.4 - 8.2 g/dL [facility] Sodium [Moles/Vol] 142 mmol/L 136 - 145 mmol/L [facility] TBH EGFR-NON AF MONEGASQUE 49 Low >=60 mL/min/1.73m 2 [facility] Urea nitrogen [Mass/Vol] 14 mg/dL 7.0 - 18.0 mg/dL [facility] Urea nitrogen/Creatinine [Mass ratio] 11.9 mg/mg [facility] METRO BILIRUBIN, DIRECTon Bilirubin.indirect [Mass/Vol] 0.1 mg/dL 0.0 - 0.2 mg/dL [facility] No Panel Informationon 04-02 [facility] ALL CBC WITH AUTO DIFFon BASOPHILS ABSOLUTE AUTO 0.1 N [facility] Basophils/100 WBC (Bld) 0.8 % 0.2 - 2.0 % [facility] Eosinophils/100 WBC (Bld) 4.3 % 0.9 - 7.0 % [facility] Erythrocyte distribution width (RBC) [Ratio] 14.6 % 11.0 - 15.0 % [facility] Hematocrit (Bld) [Volume fraction] 39.6 % 36.0 - 48.0 % [facility] Hemoglobin (Bld) [Mass/Vol] 13.2 g/dL 12.0 - 16.0 g/dL [facility] IMMATURE GRANULOCYTES ABS AUTO 0.03 [facility] Immature granulocytes/100 WBC (Bld) 0.4 % 0.0 - 0.5 % [facility] Interpretation and review of laboratory results [facility]normal [facility] LYMP[facility]OC[facility]OLUTE [facility]O 1.5 [facility] Lymphocytes/100 WBC (Bld) 20.1 % Low 20.5 - 60.0 % [facility] MCH (RBC) [Entitic mass] 28.9 pg 26.7 - 34.0 pg [facility] MCHC (RBC) [Mass/Vol] 33.3 g/dL 29.9 - 35.2 g/dL [facility] MCV (RBC) [Entitic vol] 86.8 fL 81.0 - 99.0 fL [facility] MONOCYTES ABSOLUTE AUTO 0.4 [facility] Monocytes/100 WBC (Bld) 5.4 % 1.7 - 12.0 % [facility] NEUTROPHILS ABSOLUTE AUTO 5.2 [facility] Neutrophils/100 WBC (Bld) 69 % 43.0 - 75.0 % [facility] Platelet mean volume (Bld) [Entitic vol] 8.5 fL Low 9.5 - 13.5 fL [facility] EO # 0.3 [facility] PLT 319 [facility] RBC 4.56 [facility] WBC 7.5 [facility] Orders Onlyon 02-02-2025 Orders Only [id number] Antonio Puri i 1975 F Date Provider Department Center 02/02/2025 [id number] LOMAX None Family History Problem Relation Age of Onset Fibromyalgia Mother Heart disease Father Hypertension Sister Polycystic kidney disease Sister Hypertension Brother Polycystic kidney disease Brother Family Status - Relation Status Age at Mother Alive Father Sister Brother [facility] 36on 01-31-2025 36 Patient called into [...] to be sent over upon your approval. [facility] Refillon 01-31-2025 Refill [id number] Antonio Puri i 1975 F Date Provider Department Center 01/31/2025 ANDERSON GOODWIN None Family History Problem Relation Age of Onset Fibromyalgia Mother Heart disease Father Hypertension Sister Polycystic kidney disease Sister Hypertension Brother Polycystic kidney disease Brother Family Status - Relation Status Age at Mother Alive Father Sister Brother Reason for Visit and Comments: Med Refill [[id number]] Med Management [[id number]] [facility] ALL CBC WITH AUTO DIFFon BASOPHILS ABSOLUTE AUTO 0.1 N [facility] Basophils/100 WBC (Bld) 0.7 % 0.2 - 2.0 % [facility] Eosinophils/100 WBC (Bld) 2.7 % 0.9 - 7.0 % [facility] Erythrocyte distribution width (RBC) [Ratio] 14.5 % 11.0 - 15.0 % [facility] Hematocrit (Bld) [Volume fraction] 41.9 % 36.0 - 48.0 % [facility] Hemoglobin (Bld) [Mass/Vol] 13.9 g/dL 12.0 - 16.0 g/dL [facility] IMMATURE GRANULOCYTES ABS AUTO 0.03 [facility] Immature granulocytes/100 WBC (Bld) 0.4 % 0.0 - 0.5 % [facility] Interpretation and review of laboratory results Abnormal [facility] LYMPHOCYTES ABSOLUTE AUTO 1.6 [facility] Lymphocytes/100 WBC (Bld) 19.1 % Low 20.5 - 60.0 % [facility] MCH (RBC) [Entitic mass] 28.7 pg 26.7 - 34.0 pg [facility] MCHC (RBC) [Mass/Vol] 33.2 g/dL 29.9 - 35.2 g/dL [facility] MCV (RBC) [Entitic vol] 86.4 fL 81.0 - 99.0 fL [facility] MONOCYTES ABSOLUTE AUTO 0.6 N [facility] Monocytes/100 WBC (Bld) 6.4 % 1.7 - 12.0 % [facility] NEUTROPHILS ABSOLUTE AUTO 6 [facility] Neutrophils/100 WBC (Bld) 70.7 % 43.0 - 75.0 % [facility] Platelet mean volume (Bld) [Entitic vol] 8.6 fL Low 9.5 - 13.5 fL [facility] TBH EO # 0.2 [facility] PLT 289 [facility] TB RBC 4.85 [facility] WBC 8.5 [facility] Documentationon 12-14-2024 Documentation [id number] Antonio Puri i 1975 F Date Provider Department Center 12/14/2024 ANDERSON GOODWIN None Family History Problem Relation Age of Onset Fibromyalgia Mother Heart disease Father Hypertension Sister Polycystic kidney disease Sister Hypertension Brother Polycystic kidney disease Brother Family Status - Relation Status Age at Mother Alive Father Sister Brother Reason for Visit and Comments: Results [95] Normal [facility] ALL CBC WITH AUTO DIFFon BASOPHILS ABSOLUTE AUTO 0 N [facility] Basophils/100 WBC (Bld) 0.6 % 0.2 - 2.0 % [facility] Eosinophils/100 WBC (Bld) 5 % 0.9 - 7.0 % [facility] Erythrocyte distribution width (RBC) [Ratio] 15.1 % High 11.0 - 15.0 % [facility] Hematocrit (Bld) [Volume fraction] 38.9 % 36.0 - 48.0 % [facility] Hemoglobin (Bld) [Mass/Vol] 12.5 g/dL 12.0 - 16.0 g/dL [facility] IMMATURE GRANULOCYTES ABS AUTO 0.04 High [facility] Immature granulocytes/100 WBC (Bld) 0.6 % High 0.0 - 0.5 % [facility] Interpretation and review of laboratory results Abnormal [facility] LYMPHOCYTES ABSOLUTE AUTO 1.1 Low [facility] Lymphocytes/100 WBC (Bld) 17.6 % Low 20.5 - 60.0 % [facility] MCH (RBC) [Entitic mass] 27.8 pg 26.7 - 34.0 pg [facility] MCHC (RBC) [Mass/Vol] 32.1 g/dL 29.9 - 35.2 g/dL [facility] MCV (RBC) [Entitic vol] 86.6 fL 81.0 - 99.0 fL [facility] MONOCYTES ABSOLUTE AUTO 0.4 N [facility] Monocytes/100 WBC (Bld) 5.4 % 1.7 - 12.0 % [facility] NEUTROPHILS ABSOLUTE AUTO 4.6 [facility] Neutrophils/100 WBC (Bld) 70.8 % 43.0 - 75.0 % [facility] Platelet mean volume (Bld) [Entitic vol] 8.7 fL Low 9.5 - 13.5 fL [facility] EO # 0.3 [facility] PLT 283 [facility] TB RBC 4.49 [facility] TB WBC 6.4 [facility] Refillon 11-25-2024 Refill [id number] Antonio Puri i 1975 F Date Provider Department Center 11/25/2024 [id number] TORRES TXP None Family History Problem Relation Age of Onset Fibromyalgia Mother Heart disease Father Hypertension Sister Polycystic kidney disease Sister Hypertension Brother Polycystic kidney disease Brother Family Status - Relation Status Age at Mother Alive Father Sister Brother [facility] Follow-Upon 11-12-2024 Follow-Up [id number] Antonio Puri i 1975 Date Provider Department Center 11/12/202462001-[id number] BATRES TXP None Family History Problem Relation Age of Onset Fibromyalgia Mother Heart disease Father Hypertension Sister Polycystic kidney disease Sister Hypertension Brother Polycystic kidney disease Brother Family Status - Relation Status Age at Mother Alive Father Sister Brother Level of Service:16964 [place] OFFICE/OUTPATIENT ESTABLISHED MOD MDM 30 MIN Reason for Visit and Comments: Kidney Follow-up [] - Pt has reoccurring uti's x7 months. She is going to ID to be checked. She would like a standing lab order for a ua. [facility] Orders Onlyon 10-21-2024 Orders Only [id number] Antonio Puri i 1975 Date Provider Department Center 10/21/2024 Jase-LU STEPHENS TXP None Family History Problem Relation Age of Onset Fibromyalgia Mother Heart disease Father Hypertension Sister Polycystic kidney disease Sister Hypertension Brother Polycystic kidney disease Brother Family Status - Relation Status Age at Mother Father Sister Brother [facility] ALL URINALYSISon 10-14-2024 BILIRUBIN URINE Negative NEGATIVE [facility] BLOOD URINE TRACE-I NEGATIVE [facility] Clarity (U) CLEAR CLEAR [facility] Color (U) LT. YELLOW YELLOW [facility] GLUCOSE URINE UA Negative NEGATIVE mg/dL [facility] Interpretation and review of laboratory results Abnormal [facility] Ketones Ql (U) Negative NEGATIVE mg/dL [facility] Leukocyte esterase Test strip Ql (U) LARGE Abnormal NEGATIVE [facility] NITRITE URINE Positive Abnormal NEGATIVE [facility] pH (U) 7.5 [pH] 5.0 - 9.0 [facility] PROTEIN URINE Negative NEG/TRACE mg/dL [facility] SPECIFIC GRAVITY URINE 1.015 1.005 - 1.025 [facility] UROBILINOGEN URINE 0.2 EU/dL 0.2 - 1.0 EU/dL [facility] Urine Cultureon 10-14-2024 Bacteria identified Cx Nom (U) ORGANISM: Escherichia coli (MDRO) (O:ESCCOLMDRO) [place] Count >100,000 Aerobic CODI Charge (NMIC56) - [...] RESISTANT TO ALL B-LACTAM DRUGS. PERFORMED BY: [address] [place] [address] PATHOLOGIST FAMILY SERVICES ASSISTANT DOM MARIEE M.D. Normal [facility] Comment on above: Performed By: #### C UU #### [facility] [address] [place] [address] [facility] ALL MAGNESIUMon 10-02-2024 Magnesium [Mass/Vol] 1.8 mg/dL 1.8 - 2 .4 mg/dL [facility] PHOSPHOROUS[facility] 10-02-2024 Phosphate [Mass/Vol] 3.9 mg/dL 2.6 - 4 .7 mg/dL [facility] ALL URIC ACIDon 10-02-2024 Urate [Mass/Vol] 4.2 mg/dL 2.6 - 6.0 mg/dL [facility] CMP (CMP) (FOR REMOTE FH C USE)on 10-02-2024 Albumin [Mass/Vol] 3.3 g/dL Low 3.4 - 5.0 g/dL [facility] ALBUMIN GLOBULIN RATIO 0.8 NO [facility] ALP [Catalytic activity/Vol] 84 U/L 46 - 116 U/L [facility] ALT [Catalytic activity/Vol] 13 U/L Low 14 - 59 U/L [facility] Anion gap [Moles/Vol] 14.6 mmol/L NO [facility] AST [Catalytic activity/Vol] 11 U/L Low 15 - 37 U/L [facility] Bilirubin [Mass/Vol] 0.3 mg/dL 0.2 - 1 .0 mg/dL [facility] Calcium [Mass/Vol] 9.3 mg/dL 8.5 - 10. 1 mg/dL [facility] Chloride [Moles/Vol] 105 mmol/L 98 - 10 7 mmol/L [facility] CO2 [Moles/Vol] 25 mmol/L 21.0 - 32.0 mmol/L [facility] Creatinine [Mass/Vol] 1.37 mg/dL High 0.55 - 1.02 mg/dL [facility] GFR/1.73 sq M.predicted CKD-EPI (S/P/Bld) [Vol rate/Area] 50 Low >=60 mL/min/1.73m 2 [facility] Globulin (S) [Mass/Vol] 4.2 g/dL N [facility] Glucose [Mass/Vol] 102 mg/dL 74 - 106 mg/dL [facility] Interpretation and review of laboratory results Abnormal [facility] Potassium [Moles/Vol] 3.6 mmol/L 3.5 - 5.1 mmol/L [facility] Protein [Mass/Vol] 7.5 g/dL 6.4 - 8.2 g/dL [facility] Sodium [Moles/Vol] 141 mmol/L 136 - 145 mmol/L [facility] TBH EGFR-NON AF MONEGASQUE 41 Low >=60 mL/min/1.73m 2 [facility] Urea nitrogen [Mass/Vol] 17 mg/dL 7.0 - 18.0 mg/dL [facility] Urea nitrogen/Creatinine [Mass ratio] 12.4 mg/mg [facility] [employer] BILIRUBIN, DIRECTon Bilirubin.indirect [Mass/Vol] 0.1 mg/dL 0.0 - 0.2 mg/dL [facility] No Panel Informationon 10-02 [facility] ALL CBC WITH AUTO DIFFon BASOPHILS ABSOLUTE AUTO 0 N [facility] Basophils/100 WBC (Bld) 0.3 % 0.2 - 2.0 % [facility] Eosinophils/100 WBC (Bld) 2.8 % 0.9 - 7.0 % [facility] Erythrocyte distribution width (RBC) [Ratio] 14.5 % 11.0 - 15.0 % [facility] Hematocrit (Bld) [Volume fraction] 34.4 % Low 36.0 - 48.0 % [facility] Hemoglobin (Bld) [Mass/Vol] 10.9 g/dL Low 12.0 - 16.0 g/dL [facility] IMMATURE GRANULOCYTES ABS AUTO 0.03 [facility] Immature granulocytes/100 WBC (Bld) 0.4 % 0.0 - 0.5 % [facility] Medicine Interpretation and review of laboratory results Abnormal [facility] LYMPHOCYTES ABSOLUTE AUTO 1.2 [facility] Lymphocytes/100 WBC (Bld) 15.4 % Low 20.5 - 60.0 % [facility] MCH (RBC) [Entitic mass] 27.5 pg 26.7 - 34.0 pg [facility] MCHC (RBC) [Mass/Vol] 31.7 g/dL 29.9 - 35.2 g/dL [facility] MCV (RBC) [Entitic vol] 86.9 fL 81.0 - 99.0 fL [facility] MONOCYTES ABSOLUTE AUTO 0.5 N [facility] Monocytes/100 WBC (Bld) 6.2 % 1.7 - 12.0 % [facility] NEUTROPHILS ABSOLUTE AUTO 5.7 [facility] Neutrophils/100 WBC (Bld) 74.9 % 43.0 - 75.0 % [facility] Platelet mean volume (Bld) [Entitic vol] 8.5 fL Low 9.5 - 13.5 fL [facility] EO # 0.2 [facility] PLT 337 [facility] RBC 3.96 Low [facility] WBC 7.6 [facility] ALL LIPID PROFILE (FASTING)o n 08-31-2024 CHOL HDL RATIO 3.6 [facility] Comment on above: 3.3 - 4.4 LOW RISK 4.4 - 7.1 AVERAGE RISK 7.1 - 11.0 MODERATE RISK >11.0 HIGH RISK Cholesterol [Mass/Vol] 175 mg/dL NINF - 200 mg/dL [facility] Cholesterol in HDL [Mass/Vol] 49 mg/dL 40 - 60 mg/dL [facility] Comment on above: > or =60 mg/dl - LOW CARDIOVASCULAR RISK <40 mg/dl - HIGH CARDIOVASCULAR RISK Magnesium [Mass/Vol] 99.6 mg/dL [facility] Comment on above: <100 mg/dl OPTIMAL 100-129 mg/dl NEAR OR ABOVE OPTIMAL 130-159 mg/dl BORDERLINE HIGH 160-189 mg/dl HIGH >190 mg/dl VERY HIGH Magnesium [Mass/Vol] 26.4 mg/dL [facility] Triglyceride [Mass/Vol] 132 mg/dL NINF - 150 mg/dL [facility] ALL MAGNESIUMon 08-31-2024 Magnesium [Mass/Vol] 1.9 mg/dL 1.8 - 2 .4 mg/dL [facility] ALL PHOSPHOROUSon 08-31-2024 Phosphate [Mass/Vol] 3.7 mg/dL 2.6 - 4 .7 mg/dL [facility] ALL URIC ACIDon 08-31-2024 Urate [Mass/Vol] 4 mg/dL 2.6 - 6.0 mg/dL [facility] CMP (CMP) (FOR REMOTE FH C USE)on 08-31-2024 Albumin [Mass/Vol] 3.4 g/dL 3.4 - 5.0 g/dL [facility] ALBUMIN GLOBULIN RATIO 0.8 NO [facility] ALP [Catalytic activity/Vol] 86 U/L 46 - 116 U/L [facility] ALT [Catalytic activity/Vol] 19 U/L 14 - 59 U/L [facility] Anion gap [Moles/Vol] 17.2 mmol/L NO [facility] AST [Catalytic activity/Vol] 11 U/L Low 15 - 37 U/L [facility] Bilirubin [Mass/Vol] 0.4 mg/dL 0.2 - 1 .0 mg/dL [facility] Calcium [Mass/Vol] 9.3 mg/dL 8.5 - 10. 1 mg/dL [facility] Chloride [Moles/Vol] 104 mmol/L 98 - 10 7 mmol/L [facility] CO2 [Moles/Vol] 24.6 mmol/L 21.0 - 32.0 mmol/L [facility] Creatinine [Mass/Vol] 1.34 mg/dL High 0.55 - 1.02 mg/dL [facility] GFR/1.73 sq M.predicted CKD-EPI (S/P/Bld) [Vol rate/Area] 51 Low >=60 mL/min/1.73m 2 [facility] Globulin (S) [Mass/Vol] 4.2 g/dL N [facility] Glucose [Mass/Vol] 98 mg/dL 74 - 106 mg/dL [facility] Interpretation and review of laboratory results Abnormal [facility] Potassium [Moles/Vol] 3.8 mmol/L 3.5 - 5.1 mmol/L [facility] Protein [Mass/Vol] 7.6 g/dL 6.4 - 8.2 g/dL [facility] Sodium [Moles/Vol] 142 mmol/L 136 - 145 mmol/L [facility] EGFR-NON AF MONEGASQUE 42 Low >=60 mL/min/1.73m 2 [facility] Urea nitrogen [Mass/Vol] 16 mg/dL 7.0 - 18.0 mg/dL [facility] Urea nitrogen/Creatinine [Mass ratio] 11.9 mg/mg [facility] METRO BILIRUBIN, DIRECTon Bilirubin.indirect [Mass/Vol] 0.1 mg/dL 0.0 - 0.2 mg/dL [facility] MLR HEMOGLOBIN A1Con 024 Glucose [Mass/Vol] 103 mg/dL [facility] HbA1c (Bld) [Mass fraction] 5.2 % 4.5 - 6.2 % [facility] Comment on above: ADA RECOMMENDED LIMI T 4.0 - 6.0 ADA THERAPEUTIC TARGET < 7.0 ACTION SUGGESTED > 7.0 [facility] No [facility]o BI w/CADo n 08-25-2024 MM screening mammo BI w/CAD [facility] [place] [address] [place] [address] Mammography Report Signed Patient: Mandeep Puri MR#: [id number] : 1975 Acct:[id number] Age/Sex: 48 / F ADM Date: 08/25/24 Loc: [place] Room: Type: [facility] Attending Dr: Blake Hinojosa DO Copies to: [...] Messina Jr., D.OSon08/25/2024 3:24 PM Dictation Location: [facility] Transcribed By: SALMA 08/25/24 1524 Dictated By: Evan Messina Jr, DO 08/25/24 1523 Signed By: 08/25/24 152 Normal [facility] Mammography reportOrdered By : Evan Messina on 08-25-[address] [facility] [place] [address] [place], [place] [id number] Mammography Report Signed Patient: Mandeep Puri MR#: [id number] : 1975 Acct:[id number] Age/Sex: 48 / F ADM Date: 4 Loc: [place] Room: Type: [facility] Attending Dr: Blake Hinojosa DO Copies to: [...] Messina Jr., D.O.08/25/2024 3:24 PM Dictation Location: [facility] Transcribed By: SALMA 08/25/241523 Dictated By: Evan Messina Jr, DO 08/25/24 152 Signed By: 08/25/24 152 [facility] [place] 125on 08-03-2024 CANCER ANTIGEN 125 12.9 0.0 - 38.1 [facility] Comment on above: [facility] El ectrochemiluminescence Immunoassay (ECLIA) Values obtained with different assay methods or kits cannot be used interchangeably. Results cannot be interpreted as absolute evidence of the presence or absence of malignant disease. Performed at: [address] [id number] Planning Rn: Gabriel Whitman PhD, Phone: [phone] [facility] 24 hour urine albumin/total protein ratio by electrophoresisOrdered By: Jesus Ayala on 08-02-2024 Albumin Elph (24H U) [Mass fraction] Albumin/Protein.total in 24 hour Urine by Electrophoresis . [facility] 24 hour urine gamma globulin /total protein ratio by electrophoresisOrdered By: Jesus Ayala on 08-02-2024 Gamma globulin Elph (24H U) [Mass fraction] Gamma globulin/Protein.total in 24 hour Urine by Electrophoresis . [facility] 24 hour urine protein monocl onal/total protein by electrophoresisOrdered By: Jesus Ayala on 08-02-2024 Protein.monoclonal Elph (24H U) [Mass fraction] Protein.monoclonal/Prote in.total in 24 hour Urine by Electrophoresis Not Observed [facility] Alanine aminotransferase [En zymatic activity/volume] in Serum or PlasmaOrdered By: Jesus Ayala on 08-02-2024 ALT [Catalytic activity/Vol] 11 U/L Normal [facility] Comment on above: Performed By: #### U PE RAND, CAMILLA,URINE, ALDOLASE, SPE, CAMILLA SERUM #### [facility] , #### ADDONUAPLUS, T4F, ESR, CMP, CK, CBC, CRP, TSH3 #### [address] ALT [Catalytic activity/Vol] Alanine aminotransferase [Enzymatic activity/volume] in Serum or Plasma [facility] Albumin [Mass/volume] in Ser um or Plasma by Bromocresol green (BCG) dye binding methoOrdered By: Jesus Ayala on 08-02-2024 Albumin BCG dye [Mass/Vol] 4.3 g/dL 3.5-5.7 [facility] Albumin BCG dye [Mass/Vol] Albumin [Mass/volume] in Serum or Plasma by Bromocresol green (BCG) dye binding metho 3.5-5.7 [facility] Aldolaseon 08-02-2024 Aldolase 3.5 U/L Normal 3.3-10.3 [facility] Comment on above: Result Comment: Perf ormed at: - [facility] [address] [id number] Planning Rn: Gabriel Whitman PhD, Phone: [phone] PERFORMED BY: [place] [address] PATHOLOGIST FAMILY SERVICES ASSISTANT ANAHY MCKEE M.D. Performed By: #### U PE RAND, CAMILLA,URINE, ALDOLASE, SPE, CAMILLA SERUM ####[facility] ,#### ADDONUAPLUS, T4F, ESR, CMP, CK, CBC, CRP, TSH3 ####[facility] Alkaline phosphatase [Enzyma tic activity/volume] in Serum or PlasmaOrdered By: Jesus Ayala on 08-02-2024 ALP [Catalytic activity/Vol] 87 U/L Normal 34-104 [facility] Comment on above: Performed By: #### U PE RAND, CAMILLA,URINE, ALDOLASE, SPE, CAMILLA SERUM #### [facility] , #### ADDONUAPLUS, T4F, ESR, CMP, CK, CBC, CRP, TSH3 #### [facility] [address] ALP [Catalytic activity/Vol] Alkaline phosphatase [Enzymatic activity/volume] in Serum or Plasma 34-104 [facility] Appearance of UrineOrdered B y: Jesus Ayala on 08-02-2024 Appearance (U) Urine appearance [facility] Aspartate aminotransferase [ Enzymatic activity/volume] in Serum or PlasmaOrdered By: Jesus Ayala on 08-02-2024 AST [Catalytic activity/Vol] 13 U/L Normal 13-39 [facility] Comment on above: Performed By: #### U PE RAND, CAMILLA,URINE, ALDOLASE, SPE, CAMILLA SERUM #### [facility] , #### ADDONUAPLUS, T4F, ESR, CMP, CK, CBC, CRP, TSH3 #### [facility] [address] AST [Catalytic activity/Vol] Aspartate aminotransferase [Enzymatic activity/volume] in Serum or Plasma 13-39 [facility] Automated basophil %Ordered By: Jesus Ayala on 08-02-2024 Basophils/100 WBC (Bld) 0.6 % Normal . [facility] Comment on above: Performed By: #### U PE RAND, CAMILLA,URINE, ALDOLASE, SPE, CAMILLA SERUM ####[facility] ,#### ADDONUAPLUS, T4F, ESR, CMP, CK, CBC, CRP, TSH3 ####[address] Automated basophil countOrde red By: Jseus Ayala on 08-02-2024 Basophils (Bld) [#/Vol] 0.0 10*3/uL Normal 0.0-0.2 [facility] Comment on above: Performed By: #### U PE RAND, CAMILLA,URINE, ALDOLASE, SPE, CAMILLA SERUM ####[facility] ,#### ADDONUAPLUS, T4F, ESR, CMP, CK, CBC, CRP, TSH3 ####[address] Automated blood monocyte cou ntOrdered By: Jesus Ayala on 08-02-2024 Monocytes (Bld) [#/Vol] 0.4 10*3/uL Normal 0.0-0.8 [facility] Comment on above: Performed By: #### U PE RAND, CAMILLA,URINE, ALDOLASE, SPE, CAMILLA SERUM ####[facility] ,#### ADDONUAPLUS, T4F, ESR, CMP, CK, CBC, CRP, TSH3 ####[address] Automated eosinophil %Ordere d By: Jesus Ayala on 08-02-2024 Eosinophils/100 WBC (Bld) 3.0 % Normal . [facility] Comment on above: Performed By: #### U PE RAND, CAMILLA,URINE, ALDOLASE, SPE, CAMILLA SERUM ####[facility] ,#### ADDONUAPLUS, T4F, ESR, CMP, CK, CBC, CRP, TSH3 ####[facility] [id number] [address] Automated eosinophil countOr dered By: Jesus Ayala on 08-02-2024 Eosinophils (Bld) [#/Vol] 0.2 10*3/uL Normal 0.0-0.45 [facility] Comment on above: Performed By: #### U PE RAND, CAMILLA,URINE, ALDOLASE, SPE, CAMILLA SERUM ####[facility] ,#### ADDONUAPLUS, T4F, ESR, CMP, CK, CBC, CRP, TSH3 ####[facility] [id number] [address] Automated epithelial cells c ount in urine sediment (number/area)Ordered By: Jesus Ayala on 08-02-2024 Epithelial cells Auto (Urine sed) [#/Area] 5-9 [HPF] High 0-2 [facility] Epithelial cells Auto (Urine sed) [#/Area] Automated epithelial cells count in urine sediment (number/area) High 0-2 [facility] Automated erythrocytes count in urine sediment (number/area)Ordered By: Jesus Gurberrow on 08-02-2024 RBC Auto (Urine sed) [#/Area] Erythrocytes [#/area] in Urine sediment by Automated count 0-4 [facility] Automated leukocytes count i n urine sediment (number/area)Ordered By: Jesus Gruberrow on 08-02-2024 WBC Auto (Urine sed) [#/Area] Leukocytes [#/area] in Urine sediment by Automated count 0-4 [facility] Automated monocyte %Ordered By: Jesus Gruberrow on 08-02-2024 Monocytes/100 WBC (Bld) 4.5 % Normal . [facility] Comment on above: Performed By: #### U PE RAND, CAMILLA,URINE, ALDOLASE, SPE, CAMILLA SERUM ####[facility] ,#### ADDONUAPLUS, T4F, ESR, CMP, CK, CBC, CRP, TSH3 ####[facility] [id number] [address] Automated neutrophil %Ordere d By: Jesus Ayala on 08-02-2024 Neutrophils/100 WBC (Bld) 76.9 % Normal . [facility] Comment on above: Performed By: #### U PE RAND, CAMILLA,URINE, ALDOLASE, SPE, CAMILLA SERUM ####[facility] ,#### ADDONUAPLUS, T4F, ESR, CMP, CK, CBC, CRP, TSH3 ####[facility] Bacteria [Presence] in Urine by AutomatedOrdered By: Jesus Ayala on 08-02-2024 Bacteria Auto Ql (U) None seen [HPF] None Seen [facility] Basophils Auto (Bld) [#/Vol] Ordered By: Jesus Ayala on 08-02-2024 Basophils (Bld) [#/Vol] Automated basophil count 0.0-0.2 [facility] Basophils/100 WBC Auto (Bld) Ordered By: Jesus Ayala on 08-02-2024 Basophils/100 WBC (Bld) Automated basophil % . [facility] Bilirubin Test strip Ql (U)O rdered By: Jesus Ayala on 08-02-2024 Bilirubin Ql (U) Negative Negative [facility] Bilirubin Ql (U) Bilirubin.total [Presence] in Urine by Test strip Negative [facility] Bilirubin.total [Mass/volume ] in Serum or PlasmaOrdered By: Jesus Ayala on 08-02-2024 Bilirubin [Mass/Vol] 0.3 mg/dL Normal 0.3-1.0 [facility] Comment on above: Performed By: #### U PE RAND, CAMILLA,URINE, ALDOLASE, SPE, CAMILLA SERUM #### [facility] , #### ADDONUAPLUS, T4F, ESR, CMP, CK, CBC, CRP, TSH3 #### [facility] [address] [place] [id number] [facility] Bilirubin [Mass/Vol] Bilirubin.total [Mass/volume] in Serum or Plasma 0.3-1.0 [facility] C reactive protein [Mass/vol ume] in Serum or PlasmaOrdered By: Jesus Ayala on 08-02-2024 CRP [Mass/Vol] 1.7 mg/dL High 0.0-0.5 [facility] CRP [Mass/Vol] C reactive protein [Mass/volume] in Serum or Plasma High 0.0-0.5 [facility] C-Reactive Proteinon 024 C-Reactive Protein 1.7 mg/dL High 0.0-0.5 [facility] Comment on above: Performed By: #### U PE RAND, CAMILLA,URINE, ALDOLASE, SPE, CAMILLA SERUM #### [facility] , #### ADDONUAPLUS, T4F, ESR, CMP, CK, CBC, CRP, TSH3 #### [facility] [address] [place] [id number] [facility] CARCINOEMBRYONIC ANTIGENon 1 [facility] CEA ser/plasOrdered By: Gustavo Hinojosa on 08-02-2024 Carcinoembryonic Ag [Mass/Vol] Serum or plasma carcinoembryonic antigen measurement (mass/volume) 0.0-3.0 [facility] Comment on above: Serial tumor marker results determined by assays using different manufacturers or methods may not be comparable.[facility] mental health technician and method:RUSSELL UNICEL DXI, 2 SITE IMMUNOENZYMATIC SANDWICH ASSAY. Calcium [Mass/volume] in Ser um or PlasmaOrdered By: Jesushelio Ayala on 08-02-2024 Calcium [Mass/Vol] 9.8 mg/dL Normal 8.6-10.3 [facility] Comment on above: Performed By: #### U PE RAND, CAMILLA,URINE, ALDOLASE, SPE, CAMILLA SERUM #### [facility] , #### ADDONUAPLUS, T4F, ESR, CMP, CK, CBC, CRP, TSH3 #### [facility] [address] Calcium [Mass/Vol] Calcium [Mass/volume ] in Serum or Plasma 8.6-10.3 [facility] Cancer Antigen 125on 08-02-2 024 Cancer Antigen 125 12.9 Normal 0.0-38.1 [facility] Comment on above: Result Comment: [facility] Electrochemiluminescence Immunoassay (ECLIA) Values obtained with different assay methods or kits cannot be used interchangeably. Results cannot be interpreted as absolute evidence of the presence or absence of malignant disease. Performed at: [facility] [address] [id number] Planning Rn: Gabriel Whitman PhD, Phone: [phone] PERFORMED BY: [place] [address] PATHOLOGIST FAMILY SERVICES ASSISTANT ANAHY MCKEE M.D. Performed By: #### C A125 ####[facility] ,#### CEA ####[facility] [place] [id number] [facility] Carbon dioxide, total [Moles /volume] in Serum or PlasmaOrdered By: Jesus Ayala on 08-02-2024 CO2 [Moles/Vol] 24.6 mmol/L Normal 21.0-31.0 [facility] Comment on above: Performed By: #### U PE RAND, CAMILLA,URINE, ALDOLASE, SPE, CAMILLA SERUM #### [facility] , #### ADDONUAPLUS, T4F, ESR, CMP, CK, CBC, CRP, TSH3 #### [facility] [address] CO2 [Moles/Vol] Carbon dioxide, tota l [Moles/volume] in Serum or Plasma 21.0-31.0 [facility] Chloride [Moles/volume] in S aislinn or PlasmaOrdered By: Jesus Ayala on 08-02-2024 Chloride [Moles/Vol] 105 mmol/L Normal 98-107 [facility] Comment on above: Performed By: #### U PE RAND, CAMILLA,URINE, ALDOLASE, SPE, CAMILLA SERUM #### [facility] , #### ADDONUAPLUS, T4F, ESR, CMP, CK, CBC, CRP, TSH3 #### [facility] [address] Chloride [Moles/Vol] Chloride [Moles/vol ume] in Serum or Plasma 98-107 [facility] Color Auto (U)Ordered By: Chan Ayala on 08-02-2024 Color (U) Color of Urine by Auto Yellow [facility] Color of Urine by AutoOrdere d By: Jesus Ayala on 08-02-2024 Color (U) Light-yellow Normal Yellow [facility] Comment on above: Order Comment: Name Collection Type:: Clean-Voided Midstream Performed By: #### U PE RAND, CAMILLA,URINE, ALDOLASE, SPE, CAMILLA SERUM #### [facility] , #### ADDONUAPLUS, T4F, ESR, CMP, CK, CBC, CRP, TSH3 #### [facility] [address] Complete Blood Count Auto Di ffon 08-02-2024 Mean Corpuscular HGB Conc 33.5 g/dL Normal 32.0-35.0 [facility] Comment on above: Performed By: #### U PE RAND, CAMILLA,URINE, ALDOLASE, SPE, CAMILLA SERUM ####[facility] ,#### ADDONUAPLUS, T4F, ESR, CMP, CK, CBC, CRP, TSH3 ####[facility] [place] [address] NRBC% 0.1 /100{WBC} Normal 0-0.5 [facility] Comment on above: Performed By: #### U PE RAND, CAMILLA,URINE, ALDOLASE, SPE, CAMILLA SERUM ####[facility] ,#### ADDONUAPLUS, T4F, ESR, CMP, CK, CBC, CRP, TSH3 ####[facility] Comprehensive Metabolic Pane jonathan 08-02-2024 Albumin [Mass/Vol] 4.3 g/dL Normal 3.5-5.7 [facility] Comment on above: Performed By: #### U PE RAND, CAMILLA,URINE, ALDOLASE, SPE, CAMILLA SERUM #### [facility] , #### ADDONUAPLUS, T4F, ESR, CMP, CK, CBC, CRP, TSH3 #### [facility] [address] [place] [address] [place] GFR/1.73 sq M.predicted MDRD (S/P/Bld) [Vol rate/Area] mL/min/{1.73_m2} Normal [facility] Comment on above: Performed By: #### U PE RAND, CAMILLA,URINE, ALDOLASE, SPE, CAMILLA SERUM #### [facility] , #### ADDONUAPLUS, T4F, ESR, CMP, CK, CBC, CRP, TSH3 #### [address] Creatine kinase [Enzymatic a ctivity/volume] in Serum or PlasmaOrdered By: Jesus Ayala on 08-02-2024 CK [Catalytic activity/Vol] 39 U/L Normal [facility] Comment on above: Result Comment: PERF ORMED BY: [place] [address] PATHOLOGIST FAMILY SERVICES ASSISTANT ANAHY MCKEE M.D. Performed By: #### U PE RAND, CAMILLA,URINE, ALDOLASE, SPE, CAMILLA SERUM #### [facility] , #### ADDONUAPLUS, T4F, ESR, CMP, CK, CBC, CRP, TSH3 #### [facility] [address] [place] [address] [place] CK [Catalytic activity/Vol] Creatine kinase [Enzymatic activity/volume] in Serum or Plasma [facility] Creatinine [Mass/volume] in Serum or PlasmaOrdered By: Jesus Ayala on 08-02-2024 Creatinine [Mass/Vol] 1.10 mg/dL Normal 0.60-1.20 [facility] Comment on above: Performed By: #### U PE RAND, CAMILLA,URINE, ALDOLASE, SPE, CAMILLA SERUM #### [facility] , #### ADDONUAPLUS, T4F, ESR, CMP, CK, CBC, CRP, TSH3 #### [facility] [address] [place] [address] Creatinine [Mass/Vol] Creatinine [Mass/v olume] in Serum or Plasma 0.60-1.20 [facility] Dipstick and Microscopicon 1 Bacteria,Urine None Seen Normal None Seen [facility] Comment on above: Order Comment: Name Collection Type:: Clean-Voided Midstream Performed By: #### U PE RAND, CAMILLA,URINE, ALDOLASE, SPE, CAMILLA SERUM #### [facility] , #### ADDONUAPLUS, T4F, ESR, CMP, CK, CBC, CRP, TSH3 #### [facility] [address] [place] [address] Bilirubin,Urine Negative Normal Negative [facility] Comment on above: Order Comment: Name Collection Type:: Clean-Voided Midstream Performed By: #### U PE RAND, CAMILLA,URINE, ALDOLASE, SPE, CAMILLA SERUM #### [facility] , #### ADDONUAPLUS, T4F, ESR, CMP, CK, CBC, CRP, TSH3 #### [facility] [address] [place] [address] Glucose Ql (U) 50 mg/dL High Normal [facility] Comment on above: Order Comment: Name Collection Type:: Clean-Voided Midstream Performed By: #### U PE RAND, CAMILLA,URINE, ALDOLASE, SPE, CAMILLA SERUM #### [facility] , #### ADDONUAPLUS, T4F, ESR, CMP, CK, CBC, CRP, TSH3 #### [facility] [address] [place] [address] [place] Hyaline Casts,Urine 0-8 Normal 0-8 [facility] Comment on above: Order Comment: Name Collection Type:: Clean-Voided Midstream Result Comment: PERF ORMED BY: [place] [address] PATHOLOGIST FAMILY SERVICES ASSISTANT ANAHY MCKEE M.D. Performed By: #### U PE RAND, CAMILLA,URINE, ALDOLASE, SPE, CAMILLA SERUM #### [facility] , #### ADDONUAPLUS, T4F, ESR, CMP, CK, CBC, CRP, TSH3 #### [place] [address] [place] Nitrite,Urine Negative Normal Negative [facility] Comment on above: Order Comment: Name Collection Type:: Clean-Voided Midstream Performed By: #### U PE RAND, CAMILLA,URINE, ALDOLASE, SPE, CAMILLA SERUM #### [facility] , #### ADDONUAPLUS, T4F, ESR, CMP, CK, CBC, CRP, TSH3 #### [place] [address] [place] Occult Blood,Urine Negative Normal Negative [facility] Comment on above: Order Comment: Name Collection Type:: Clean-Voided Midstream Performed By: #### U PE RAND, CAMILLA,URINE, ALDOLASE, SPE, CAMILLA SERUM #### [facility] , #### ADDONUAPLUS, T4F, ESR, CMP, CK, CBC, CRP, TSH3 #### [place] [address] [place] Protein,Urine Negative Normal Negative [facility] Comment on above: Order Comment: Name Collection Type:: Clean-Voided Midstream Performed By: #### U PE RAND, CAMILLA,URINE, ALDOLASE, SPE, CAMILLA SERUM #### [facility] , #### ADDONUAPLUS, T4F, ESR, CMP, CK, CBC, CRP, TSH3 #### [address] RBC,Urine 3-4 Normal 0-4 [facility] Comment on above: Order Comment: Name Collection Type:: Clean-Voided Midstream Performed By: #### U PE RAND, CAMILLA,URINE, ALDOLASE, SPE, CAMILLA SERUM #### [facility] , #### ADDONUAPLUS, T4F, ESR, CMP, CK, CBC, CRP, TSH3 #### [address] Specificy [place],Urine 1.013 Normal 1.001-1.030 [facility] Comment on above: Order Comment: Name Collection Type:: Clean-Voided Midstream Performed By: #### U PE RAND, CAMILLA,URINE, ALDOLASE, SPE, CAMILLA SERUM #### [facility] , #### ADDONUAPLUS, T4F, ESR, CMP, CK, CBC, CRP, TSH3 #### [address] Squamous Epithelial Cell,Urine 5-9 High 0-2 [facility] Comment on above: Order Comment: Name Collection Type:: Clean-Voided Midstream Performed By: #### U PE RAND, CAMILLA,URINE, ALDOLASE, SPE, CAMILLA SERUM #### [facility] , #### ADDONUAPLUS, T4F, ESR, CMP, CK, CBC, CRP, TSH3 #### [address] Urobilinogen,Urine Normal Normal Normal [facility] Comment on above: Order Comment: Name Collection Type:: Clean-Voided Midstream Performed By: #### U PE RAND, CAMILLA,URINE, ALDOLASE, SPE, CAMILLA SERUM #### [facility] , #### ADDONUAPLUS, T4F, ESR, CMP, CK, CBC, CRP, TSH3 #### [address] WBC,Urine 3-4 Normal 0-4 [facility] Comment on above: Order Comment: Name Collection Type:: Clean-Voided Midstream Performed By: #### U PE RAND, CAMILLA,URINE, ALDOLASE, SPE, CAMILLA SERUM #### [facility] , #### ADDONUAPLUS, T4F, ESR, CMP, CK, CBC, CRP, TSH3 #### [facility] [address] Eosinophils Auto (Bld) [#/Vo l]Ordered By: Jesus Ayala on 08-02-2024 Eosinophils (Bld) [#/Vol] Automated eosinophil count 0.0-0.45 [facility] Eosinophils/100 WBC Auto (Bl d)Ordered By: Jesus Ayala on 08-02-2024 Eosinophils/100 WBC (Bld) Automated eosinophil % . [facility] Erythrocyte Sedimentation Ra mathieu 08-02-2024 ESR (Bld) [Velocity] 73 mm/h High 0-19 [facility] Comment on above: Result Comment: PERF ORMED BY: [facility] [address] [place] [address] PATHOLOGIST FAMILY SERVICES ASSISTANT ANAHY MCKEE M.D. Performed By: #### U PE RAND, CAMILLA,URINE, ALDOLASE, SPE, CAMILLA SERUM ####[facility] ,#### ADDONUAPLUS, T4F, ESR, CMP, CK, CBC, CRP, TSH3 ####[facility] [id number] [address] Erythrocyte distribution wid th Auto (RBC) [Ratio]Ordered By: Jesus Ayala on 08-02-2024 Erythrocyte distribution width (RBC) [Ratio] Erythrocyte distribution width [Ratio] by Automated count High 11.9-15.3 [facility] Erythrocyte distribution wid th [Ratio] by Automated countOrdered By: Jesus Ayala on 08-02-2024 Erythrocyte distribution width (RBC) [Ratio] 15.7 % High 11.9-15.3 [facility] Comment on above: Performed By: #### U PE RAND, CAMILLA,URINE, ALDOLASE, SPE, CAMILLA SERUM ####[facility] ,#### ADDONUAPLUS, T4F, ESR, CMP, CK, CBC, CRP, TSH3 ####[facility] [place] [id number] [facility] Erythrocyte sedimentation ra te by Photometric methodOrdered By: Jesus Ayala on 08-02-2024 ESR Photometric method (Bld) [Velocity] 73 mm/hr High 0-19 [facility] ESR Photometric method (Bld) [Velocity] Erythrocyte sedimentation rate by Photometric method High 0-19 [facility] Erythrocytes [#/area] in Uri ne sediment by Automated countOrdered By: Jesus Ayala on 08-02-2024 RBC Auto (Urine sed) [#/Area] 3-4 [HPF] 0-4 [facility] Erythrocytes [#/volume] in B lood by Automated countOrdered By: Jesus Ayala on 08-02-2024 RBC (Bld) [#/Vol] 4.37 10*6/uL Normal 3.60-5.00 [facility] Comment on above: Performed By: #### U PE RAND, CAMILLA,URINE, ALDOLASE, SPE, CAMILLA SERUM ####[facility] ,#### ADDONUAPLUS, T4F, ESR, CMP, CK, CBC, CRP, TSH3 ####[facility] Globulin Calc (S) [Mass/Vol] Ordered By: Jesus Ayala on 08-02-2024 Globulin (S) [Mass/Vol] Serum globulin measurement by calculation (mass/volume) [facility] Glucose [Mass/volume] in Ser um or PlasmaOrdered By: Jesus Ayala on 08-02-2024 Glucose [Mass/Vol] 146 mg/dL High 70-100 [facility] Comment on above: ADA recommended refe rence rangeRandom Glucose Reference Range is dependent on time and content of last meal. Glucose of more than 200 mg/dL in a nonstressed, ambulatory subject supports the diagnosis of Diabetes Mellitus. Result Comment: [place] om Glucose Reference Range is dependent on time and content of last meal. Glucose of more than 200 mg/dL in a nonstressed, ambulatory subject supports the diagnosis of Diabetes Mellitus. ADA recommended reference range Performed By: #### U PE RAND, CAMILLA,URINE, ALDOLASE, SPE, CAMILLA SERUM #### [facility] , #### ADDONUAPLUS, T4F, ESR, CMP, CK, CBC, CRP, TSH3 #### [facility] [address] Glucose [Mass/Vol] Glucose [Mass/volume ] in Serum or Plasma High 70-100 [facility] Comment on above: ADA recommended refe rence rangeRandom Glucose Reference Range is dependent on time and content of last meal. Glucose of more than 200 mg/dL in a nonstressed, ambulatory subject supports the diagnosis of Diabetes Mellitus. Glucose [Mass/volume] in Uri ne by Test stripOrdered By: Jesus Ayala on 08-02-2024 Glucose Test strip (U) [Mass/Vol] 50 mg/dL High Normal [facility] Glucose Test strip (U) [Mass/Vol] Glucose [Mass/volume] in Urine by Test strip [facility] Hematocrit Auto (Bld) [Volum e fraction]Ordered By: Jesus Ayala on 08-02-2024 Hematocrit (Bld) [Volume fraction] Hematocrit [Volume Fraction] of Blood by Automated count 34.0-46.4 [facility] Hematocrit [Volume Fraction] of Blood by Automated countOrdered By: Jesus Ayala on 08-02-2024 Hematocrit (Bld) [Volume fraction] 37.0 % Normal 34.0-46.4 [facility] Comment on above: Performed By: #### U PE RAND, CAMILLA,URINE, ALDOLASE, SPE, CAMILLA SERUM ####[facility] ,#### ADDONUAPLUS, T4F, ESR, CMP, CK, CBC, CRP, TSH3 ####[facility] Hemoglobin Test strip Ql (U) Ordered By: Jesus Ayala on 08-02-2024 Hemoglobin Ql (U) Negative Negative [facility] Hemoglobin Ql (U) Hemoglobin [Presence ] in Urine by Test strip Negative [facility] Hemoglobin [Mass/volume] in BloodOrdered By: Jesus Gruberrow on 08-02-2024 Hemoglobin (Bld) [Mass/Vol] 12.4 g/dL Normal 11.8-15.4 [facility] Comment on above: Performed By: #### U PE RAND, CAMILLA,URINE, ALDOLASE, SPE, CAMILLA SERUM ####[facility] ,#### ADDONUAPLUS, T4F, ESR, CMP, CK, CBC, CRP, TSH3 ####[facility] [id number] Hemoglobin (Bld) [Mass/Vol] Hemoglobin [Mass/volume] in Blood 11.8-15.4 [facility] Immunofixation for UrineOrde red By: Jesus Ayala on 08-02-2024 Interpretation Immunofixation (U) [Interp] Immunofixation for Urine . [facility] Comment on above: No monoclonality det ected.Performed at: [facility] [id number] Director: Gabriel Whitman PhD, Phone: [phone] Immunofixation, (CAMILLA), Urine on 08-02-2024 Immunofixation, (CAMILLA), Urine Comment Normal . [facility] Comment on above: Result Comment: No m onoclonality detected. Performed at: [facility] [id number] Planning Rn: Gabriel Whitman PhD, Phone: [phone] Performed By: #### U PE RAND, CAMILLA,URINE, ALDOLASE, SPE, CAMILLA SERUM ####[facility] ,#### ADDONUAPLUS, T4F, ESR, CMP, CK, CBC, CRP, TSH3 ####[place] [address] Immunofixation,Serumon 08-02 Immunofixation, Serum Comment Normal . [facility] Comment on above: Result Comment: No m onoclonality detected. Performed By: #### U PE RAND, CAMILLA,URINE, ALDOLASE, SPE, CAMILLA SERUM ####[facility] ,#### ADDONUAPLUS, T4F, ESR, CMP, CK, CBC, CRP, TSH3 ####[place] [address] Immunoglobulin A, Serum 136 mg/dL Normal 87-352 [facility] Comment on above: Performed By: #### U PE RAND, CAMILLA,URINE, ALDOLASE, SPE, CAMILLA SERUM ####[facility] ,#### ADDONUAPLUS, T4F, ESR, CMP, CK, CBC, CRP, TSH3 ####[place] [address] Immunoglobulin G 1357 mg/dL Normal [phone] [facility] Comment on above: Performed By: #### U PE RAND, CAMILLA,URINE, ALDOLASE, SPE, CAMILLA SERUM ####[facility] ,#### ADDONUAPLUS, T4F, ESR, CMP, CK, CBC, CRP, TSH3 ####[address] Immunoglobulin M, Serum 94 mg/dL Normal 26-217 [facility] Comment on above: Result Comment: Perf ormed at: CB - [facility] [place] [id number] [place], [place] [id number] Planning Rn: Gabriel Whitman PhD, Phone: [phone] Performed By: #### U PE RAND, CAMILLA,URINE, ALDOLASE, SPE, CAMILLA SERUM ####[facility] ,#### ADDONUAPLUS, T4F, ESR, CMP, CK, CBC, CRP, TSH3 ####[address] Ketones Test strip Ql (U)Ord ered By: Jesus Ayala on 08-02-2024 Ketones Ql (U) Ketones [Presence] i n Urine by Test strip Negative [facility] Ketones [Presence] in Urine by Test stripOrdered By: Jesus Ayala on 08-02-2024 Ketones Ql (U) Negative Normal Negative [facility] Comment on above: Order Comment: Name Collection Type:: Clean-Voided Midstream Performed By: #### U PE RAND, CAMILLA,URINE, ALDOLASE, SPE, CAMILLA SERUM #### [facility] , #### ADDONUAPLUS, T4F, ESR, CMP, CK, CBC, CRP, TSH3 #### [facility] [address] Laboratory - UrinalysisOrder ed By: Jesus Ayala on 08-02-2024 Hyaline casts LM Ql (Urine sed) 0-8 [LPF] 0-8 [facility] Leukocyte esterase [Presence ] in Urine by Test stripOrdered By: Jesus Ayala on 08-02-2024 Leukocyte esterase Test strip Ql (U) Negative Normal Negative [facility] Comment on above: Order Comment: Name Collection Type:: Clean-Voided Midstream Performed By: #### U PE RAND, CAMILLA,URINE, ALDOLASE, SPE, CAMILLA SERUM #### [facility] , #### ADDONUAPLUS, T4F, ESR, CMP, CK, CBC, CRP, TSH3 #### [facility] [address] [place] [address] [place] Leukocyte esterase Test strip Ql (U) Leukocyte esterase [Presence] in Urine by Test strip Negative [facility] Leukocytes [#/area] in Urine sediment by Automated countOrdered By: Jesus Ayala on 08-02-2024 WBC Auto (Urine sed) [#/Area] 3-4 [HPF] 0-4 [facility] Leukocytes [#/volume] correc noah for nucleated erythrocytes in Blood by Automated counOrdered By: Jesus Ayala on 08-02-2024 WBC corrected for nucl RBC Auto (Bld) [#/Vol] 7.8 10*3/uL 3.8-11.6 [facility] WBC corrected for nucl RBC Auto (Bld) [#/Vol] Leukocytes [#/volume] corrected for nucleated erythrocytes in Blood by Automated coun .8-11. [facility] Leukocytes [#/volume] in Blo od by Automated countOrdered By: Jesus Gruberrow on 08-02-2024 WBC (Bld) [#/Vol] 7.8 10*3/uL Normal 3.8-11.6 [facility] Comment on above: Performed By: #### U PE RAND, CAMILLA,URINE, ALDOLASE, SPE, CAMILLA SERUM ####[facility] ,#### ADDONUAPLUS, T4F, ESR, CMP, CK, CBC, CRP, TSH3 ####[facility] [id number] [place] [id number] [facility] Lymphocytes Auto (Bld) [#/Vo l]Ordered By: Jesus Ayala on 08-02-2024 Lymphocytes (Bld) [#/Vol] Lymphocytes [#/volume] in Blood by Automated count 1.00-4.8 [facility] Lymphocytes [#/volume] in Bl ood by Automated countOrdered By: Jesus Ayala on 08-02-2024 Lymphocytes (Bld) [#/Vol] 1.2 10*3/uL Normal 1.00-4.8 [facility] Comment on above: Performed By: #### U PE RAND, CAMILLA,URINE, ALDOLASE, SPE, CAMILLA SERUM ####[facility] ,#### ADDONUAPLUS, T4F, ESR, CMP, CK, CBC, CRP, TSH3 ####[facility] [id number] [place] [id number] [facility] Lymphocytes/100 WBC Auto (Bl d)Ordered By: Jesus Ayala on 08-02-2024 Lymphocytes/100 WBC (Bld) Lymphocytes/100 leukocytes in Blood by Automated count . [facility] Lymphocytes/100 leukocytes i n Blood by Automated countOrdered By: Jesus Ayala on 08-02-2024 Lymphocytes/100 WBC (Bld) 15.0 % Normal . [facility] Comment on above: Performed By: #### U PE RAND, CAMILLA,URINE, ALDOLASE, SPE, CAMILLA SERUM ####[facility] ,#### ADDONUAPLUS, T4F, ESR, CMP, CK, CBC, CRP, TSH3 ####[place] [address] MCH Auto (RBC) [Entitic mass ]Ordered By: Jesus Ayala on 08-02-2024 MCH (RBC) [Entitic mass] MCH [Entitic mass] by Automated count 24.7-34.3 [facility] MCH [Entitic mass] by Automa noah countOrdered By: Jesus Ayala on 08-02-2024 MCH (RBC) [Entitic mass] 28.3 pg Normal 24.7-34.3 [facility] Comment on above: Performed By: #### U PE RAND, CAMILLA,URINE, ALDOLASE, SPE, CAMILLA SERUM ####[facility] ,#### ADDONUAPLUS, T4F, ESR, CMP, CK, CBC, CRP, TSH3 ####[address] MCHC Auto (RBC) [Mass/Vol]Or dered By: Jesus Ayala on 08-02-2024 MCHC (RBC) [Mass/Vol] 33.5 g/dL 32.0-35.0 [facility] MCHC (RBC) [Mass/Vol] MCHC [Mass/volume] by Automated count 32.0-35.0 [facility] MCV Auto (RBC) [Entitic vol] Ordered By: Jesus Ayala on 08-02-2024 MCV (RBC) [Entitic vol] MCV [Entitic vol ume] by Automated count 80-100 [facility] MCV [Entitic volume] by Auto mated countOrdered By: Jesus Ayala on 08-02-2024 MCV (RBC) [Entitic vol] 84.6 fL Normal 80-100 [facility] Comment on above: Performed By: #### U PE RAND, CAMILLA,URINE, ALDOLASE, SPE, CAMILLA SERUM ####[facility] ,#### ADDONUAPLUS, T4F, ESR, CMP, CK, CBC, CRP, TSH3 ####[address] Monocytes Auto (Bld) [#/Vol] Ordered By: Jesus Ayala on 08-02-2024 Monocytes (Bld) [#/Vol] Automated blood monocyte count 0.0-0.8 [facility] Monocytes/100 WBC Auto (Bld) Ordered By: Jesus Ayala on 08-02-2024 Monocytes/100 WBC (Bld) Automated monocyte % . [facility] Neutrophils Auto (Bld) [#/Vo l]Ordered By: Jesus Ayala on 08-02-2024 Neutrophils (Bld) [#/Vol] Neutrophils [#/volume] in Blood by Automated count 1.8-7.7 [facility] Neutrophils [#/volume] in Bl ood by Automated countOrdered By: Jesus Ayala on 08-02-2024 Neutrophils (Bld) [#/Vol] 6.0 10*3/uL Normal 1.8-7.7 [facility] Comment on above: Performed By: #### U PE RAND, CAMILLA,URINE, ALDOLASE, SPE, CAMILLA SERUM ####[facility] ,#### ADDONUAPLUS, T4F, ESR, CMP, CK, CBC, CRP, TSH3 ####[facility] [id number] Neutrophils/100 WBC Auto (Bl d)Ordered By: Jesus Ayala on 08-02-2024 Neutrophils/100 WBC (Bld) Automated neutrophil % . [facility] Nitrite Test strip Ql (U)Ord ered By: Jesus Ayala on 08-02-2024 Nitrite Ql (U) Negative Negative [facility] Nitrite Ql (U) Nitrite [Presence] i n Urine by Test strip Negative [facility] No Panel InformationOrdered By: Jesus Ayala on 08-02-2024 Estimated GFR (CKD-EPI) > 60.0 mL/Min [facility] Creatinine Clearance (Chem N/A [facility] Protein Electrophoresis M-Maury Not observed g/dL Not Observed [facility] Protein Electrophoresis Note Comment . [facility] Comment on above: Protein electrophore sis scan will follow via computer,mail, or felling machine operator delivery.Performed at: [address] [id number] Director: Gabriel Whitman PhD, Phone: [phone] Urine Random Prot Electrophor Note Comment . [facility] Comment on above: Protein electrophore sis scan will follow via computer,mail, or felling machine operator delivery. Nucleated erythrocytes [Pres ence] in Blood by Automated countOrdered By: Jesus Ayala on 08-02-2024 Nucleated RBC Auto Ql (Bld) 0.1 /100{WBC} 0-0.5 [facility] Nucleated RBC Auto Ql (Bld) Nucleated erythrocytes [Presence] in Blood by Automated count 0-0.5 [facility] Platelet mean volume Auto (B ld) [Entitic vol]Ordered By: Jesus Ayala on 08-02-2024 Platelet mean volume (Bld) [Entitic vol] Platelet mean volume [Entitic volume] in Blood by Automated count 6.3-10.7 [facility] Platelet mean volume [Entiti c volume] in Blood by Automated countOrdered By: Jesus Ayala on 08-02-2024 Platelet mean volume (Bld) [Entitic vol] 6.6 fL Normal 6.3-10.7 [facility] Comment on above: Performed By: #### U PE RAND, CAMILLA,URINE, ALDOLASE, SPE, CAMILLA SERUM ####[facility] ,#### ADDONUAPLUS, T4F, ESR, CMP, CK, CBC, CRP, TSH3 ####[facility] [id number] [place] [address] [facility] Platelets Auto (Bld) [#/Vol] Ordered By: Jesus Ayala on 08-02-2024 Platelets (Bld) [#/Vol] Platelets [#/vol ume] in Blood by Automated count 150-450 [facility] Platelets [#/volume] in Bloo d by Automated countOrdered By: Jesus Ayala on 08-02-2024 Platelets (Bld) [#/Vol] 439 10*3/uL Normal 150-450 [facility] Comment on above: Performed By: #### U PE RAND, CAMILLA,URINE, ALDOLASE, SPE, CAMILLA SERUM ####[facility] ,#### ADDONUAPLUS, T4F, ESR, CMP, CK, CBC, CRP, TSH3 ####[facility] Potassium [Moles/volume] in Serum or PlasmaOrdered By: Jesus Ayala on 08-02-2024 Potassium [Moles/Vol] 3.8 mmol/L Normal 3.5-5.1 [facility] Comment on above: Performed By: #### U PE RAND, CAMILLA,URINE, ALDOLASE, SPE, CAMILLA SERUM #### [facility] , #### ADDONUAPLUS, T4F, ESR, CMP, CK, CBC, CRP, TSH3 #### [facility] [address] Potassium [Moles/Vol] Potassium [Moles/v olume] in Serum or Plasma 3.5-5.1 [facility] Protein Electro, Random Urin yonis 08-02-2024 Albumin, Urine 36.1 % Normal . [facility] Comment on above: Performed By: #### U PE RAND, CAMILLA,URINE, ALDOLASE, SPE, CAMILLA SERUM ####[facility] ,#### ADDONUAPLUS, T4F, ESR, CMP, CK, CBC, CRP, TSH3 ####[place] [address] Rtywm-3-Shliporl, Urine 4.1 % Normal . [facility] Comment on above: Performed By: #### U PE RAND, CAMILLA,URINE, ALDOLASE, SPE, CAMILLA SERUM ####[facility] ,#### ADDONUAPLUS, T4F, ESR, CMP, CK, CBC, CRP, TSH3 ####[facility] [place] [address] [place] Ofahs-2-Btkjbmwe, Urine 18.4 % Normal . [facility] Comment on above: Performed By: #### U PE RAND, CAMILLA,URINE, ALDOLASE, SPE, CAMILLA SERUM ####[facility] ,#### ADDONUAPLUS, T4F, ESR, CMP, CK, CBC, CRP, TSH3 ####[address] Beta Globulin, Urine 24.3 % Normal . [facility] Comment on above: Performed By: #### U PE RAND, CAMILLA,URINE, ALDOLASE, SPE, CAMILLA SERUM ####[facility] ,#### ADDONUAPLUS, T4F, ESR, CMP, CK, CBC, CRP, TSH3 ####[address] Gamma Globulin, Urine 17.1 % Normal . [facility] Comment on above: Performed By: #### U PE RAND, CAMILLA,URINE, ALDOLASE, SPE, CAMILLA SERUM ####[facility] ,#### ADDONUAPLUS, T4F, ESR, CMP, CK, CBC, CRP, TSH3 ####[address] M-Maury % Not Observed Normal Not Observed [facility] Comment on above: Performed By: #### U PE RAND, CAMILLA,URINE, ALDOLASE, SPE, CAMILLA SERUM ####[facility] ,#### ADDONUAPLUS, T4F, ESR, CMP, CK, CBC, CRP, TSH3 ####[address] Please Note: Comment Normal . [facility] Comment on above: Result Comment: Prot ein electrophoresis scan will follow via computer, mail, or felling machine operator delivery. PERFORMED BY: [facility] [address] [place] [address] PATHOLOGIST FAMILY SERVICES ASSISTANT ANAHY MCKEE M.D. Performed By: #### U PE RAND, CAMILLA,URINE, ALDOLASE, SPE, CAMILLA SERUM ####[facility] ,#### ADDONUAPLUS, T4F, ESR, CMP, CK, CBC, CRP, TSH3 ####[address] [place] [address] [place] Protein (U) [Mass/Vol] 9.0 mg/dL Normal Not Estab. Th e [facility] Comment on above: Performed By: #### U PE RAND, CAMILLA,URINE, ALDOLASE, SPE, CAMILLA SERUM ####[facility] ,#### ADDONUAPLUS, T4F, ESR, CMP, CK, CBC, CRP, TSH3 ####[address] Protein Electrophoresis, Ser umon 08-02-2024 Albumin [Mass/Vol] 3.9 g/dL Normal 2.9-4.4 [facility] Comment on above: Performed By: #### U PE RAND, CAMILLA,URINE, ALDOLASE, SPE, CAMILLA SERUM ####[facility] ,#### ADDONUAPLUS, T4F, ESR, CMP, CK, CBC, CRP, TSH3 ####[address] Albumin/Globulin [Mass ratio] 1.1 {ratio} Normal 0.7-1.7 [facility] Comment on above: Performed By: #### U PE RAND, CAMILLA,URINE, ALDOLASE, SPE, CAMILLA SERUM ####[facility] ,#### ADDONUAPLUS, T4F, ESR, CMP, CK, CBC, CRP, TSH3 ####[address] Dwldg-9-Nzlkfkqm 0.2 g/dL Normal 0.0-0.4 [facility] Comment on above: Performed By: #### U PE RAND, CAMILLA,URINE, ALDOLASE, SPE, CAMILLA SERUM ####[facility] ,#### ADDONUAPLUS, T4F, ESR, CMP, CK, CBC, CRP, TSH3 ####[address] Kmnvl-8-Tdreqidd 1.0 g/dL Normal 0.4-1.0 [facility] Comment on above: Performed By: #### U PE RAND, CAMILLA,URINE, ALDOLASE, SPE, CAMILLA SERUM ####[facility] ,#### ADDONUAPLUS, T4F, ESR, CMP, CK, CBC, CRP, TSH3 ####[address] Beta Globulin 1.2 g/dL Normal 0.7-1.3 [facility] Comment on above: Performed By: #### U PE RAND, CAMILLA,URINE, ALDOLASE, SPE, CAMILLA SERUM ####[facility] ,#### ADDONUAPLUS, T4F, ESR, CMP, CK, CBC, CRP, TSH3 ####[address] Gamma Globulin 1.3 g/dL Normal 0.4-1.8 [facility] Comment on above: Performed By: #### U PE RAND, CAMILLA,URINE, ALDOLASE, SPE, CAMILLA SERUM ####[facility] ,#### ADDONUAPLUS, T4F, ESR, CMP, CK, CBC, CRP, TSH3 ####[address] Globulin (S) [Mass/Vol] 3.6 g/dL Normal 2.2-3.9 [facility] Comment on above: Performed By: #### U PE RAND, CAMILLA,URINE, ALDOLASE, SPE, CAMILLA SERUM ####[facility] ,#### ADDONUAPLUS, T4F, ESR, CMP, CK, CBC, CRP, TSH3 ####[address] M-Maury Not Observed Normal Not Observed [facility] Comment on above: Performed By: #### U PE RAND, CAMILLA,URINE, ALDOLASE, SPE, CAMILLA SERUM ####[facility] ,#### ADDONUAPLUS, T4F, ESR, CMP, CK, CBC, CRP, TSH3 ####[address] SPE-Note Comment Normal . [facility] Comment on above: Result Comment: Prot ein electrophoresis scan will follow via computer, mail, or felling machine operator delivery. Performed at: - [place] [id number] [place], [place] [id number] Planning Rn: Gabriel Whitman PhD, Phone: [phone] PERFORMED BY: [place] [address] PATHOLOGIST FAMILY SERVICES ASSISTANT ANAHY MCKEE M.D. Performed By: #### U PE RAND, CAMILLA,URINE, ALDOLASE, SPE, CAMILLA SERUM ####[facility] ,#### ADDONUAPLUS, T4F, ESR, CMP, CK, CBC, CRP, TSH3 ####[address] Protein Test strip (U) [Mass /Vol]Ordered By: Jesus Ayala on 08-02-2024 Protein (U) [Mass/Vol] Negative Negative [facility] Protein (U) [Mass/Vol] Protein [Mass/vol ume] in Urine by Test strip Negative [facility] Protein [Mass/volume] in Ser um or PlasmaOrdered By: Jesus Ayala on 08-02-2024 Protein [Mass/Vol] 7.5 g/dL Normal 6.0-8.5 [facility] Comment on above: Performed By: #### U PE RAND, CAMILLA,URINE, ALDOLASE, SPE, CAMILLA SERUM #### [facility] , #### ADDONUAPLUS, T4F, ESR, CMP, CK, CBC, CRP, TSH3 #### [address] Performed By: #### U PE RAND, CAMILLA,URINE, ALDOLASE, SPE, CAMILLA SERUM ####[facility] ,#### ADDONUAPLUS, T4F, ESR, CMP, CK, CBC, CRP, TSH3 ####[address] [place] [address] [place] Protein [Mass/Vol] Protein [Mass/volume ] in Serum or Plasma 6.0-8.5 [facility] RBC Auto (Bld) [#/Vol]Ordere d By: Jesus Ayala on 08-02-2024 RBC (Bld) [#/Vol] Erythrocytes [#/volu me] in Blood by Automated count 3.60-5.00 [facility] Serum aldolase measurementOr dered By: Jesus Ayala on 08-02-[address] biopsy 3.3-10.3 [facility] Comment on above: Performed at: [place] [id number] Director: Gabriel Whitman PhD, Phone: [phone] Serum globulin measurement ( mass/volume)Ordered By: Jesus Ayala on 08-02-2024 Globulin (S) [Mass/Vol] Serum globulin measurement (mass/volume) 2.2-3.9 [facility] Serum globulin measurement b y calculation (mass/volume)Ordered By: Jesus Ayala on 08-02-2024 Globulin (S) [Mass/Vol] 3.2 g/dL Normal [facility] Comment on above: Performed By: #### U PE RAND, CAMILLA,URINE, ALDOLASE, SPE, CAMILLA SERUM #### [facility] , #### ADDONUAPLUS, T4F, ESR, CMP, CK, CBC, CRP, TSH3 #### [facility] [address] Serum immunofixation electro phoresisOrdered By: Jesus Ayala on 08-02-2024 Serum Immunofixation Comment . [facility] Comment on above: No monoclonality det ected. Serum or plasma IgA measurem ent (mass/volume)Ordered By: Jesus Ayala on 08-02-2024 IgA [Mass/Vol] IgA [Mass/volume] in Serum or Plasma 87-352 [facility] Serum or plasma IgG measurem ent (mass/volume)Ordered By: Jesus Ayala on 08-02-2024 IgG [Mass/Vol] IgG [Mass/volume] in Serum or Plasma [id number] [facility] Serum or plasma IgM measurem ent (mass/volume)Ordered By: Jesus Ayala on 08-02-2024 IgM [Mass/Vol] IgM [Mass/volume] in Serum or Plasma 26-217 [facility] Comment on above: Performed at: [address] [id number] Director: Gabriel Whitman PhD, Phone: [phone] Serum or plasma albumin ge urement (mass/volume)Ordered By: Jesus Ayala on 08-02-2024 Albumin [Mass/Vol] Albumin [Mass/volume ] in Serum or Plasma 2.9-4.4 [facility] Serum or plasma albumin/glob ulin mass ratioOrdered By: Jesus Ayala on 08-02-2024 Albumin/Globulin [Mass ratio] 1.3 {ratio} Normal [facility] Comment on above: Performed By: #### U PE RAND, CAMILLA,URINE, ALDOLASE, SPE, CAMILLA SERUM #### [facility] , #### ADDONUAPLUS, T4F, ESR, CMP, CK, CBC, CRP, TSH3 #### [facility] [address] Albumin/Globulin [Mass ratio] Serum or plasma albumin/globulin mass ratio 0.7-1.7 [facility] Serum or plasma alpha 1 glob ulin measurement by electrophoresis (mass/volume)Ordered By: Jesus Ayala on 08-02-2024 Alpha 1 globulin Elph [Mass/Vol] Serum or plasma alpha 1 globulin measurement by electrophoresis (mass/volume) 0.0-0.4 [facility] Serum or plasma alpha 2 glob ulin measurement by electrophoresis (mass/volume)Ordered By: Jesus Ayala on 08-02-2024 Alpha 2 globulin Elph [Mass/Vol] Serum or plasma alpha 2 globulin measurement by electrophoresis (mass/volume) 0.4-1.0 [facility] Serum or plasma anion gap de terminationOrdered By: Jesus Ayala on 08-02-2024 Anion gap [Moles/Vol] 12.2 mmol/L Normal 6.0-15.0 [facility] Comment on above: Performed By: #### U PE RAND, CAMILLA,URINE, ALDOLASE, SPE, CAMILLA SERUM #### [facility] , #### ADDONUAPLUS, T4F, ESR, CMP, CK, CBC, CRP, TSH3 #### [facility] [address] Anion gap [Moles/Vol] Serum or plasma an ion gap determination 6.0-15.0 [facility] Serum or plasma beta globuli n measurement by electrophoresis (mass/volume)Ordered By: Jesus Ayala on 08-02-2024 Beta globulin Elph [Mass/Vol] Serum or plasma beta globulin measurement by electrophoresis (mass/volume) 0.7-1.3 [facility] Serum or plasma cancer antig en 125 (CA-125) measurement (units/volume)Ordered By: Blake Hinojosa on 08-02-2024 Cancer Ag 125 Qn Serum or plasma canc er antigen 125 (CA-125) measurement (units/volume) 0.0-38.1 [facility] Comment on above: [employer] El ectrochemiluminescence Immunoassay(ECLIA)Values obtained with different assay methods or kits cannotbe used interchangeably. Results cannot be interpreted asabsolute evidence of the presence or absence of malignantdisease.Performed at: [facility] [employer] [id number] Director: Gabriel Whitman PhD, Phone: [phone] Serum or plasma carcinoembry onic antigen measurement (mass/volume)Ordered By: Blake Hinojosa on 08-02-2024 Carcinoembryonic Ag [Mass/Vol] 1.0 ng/mL 0.0-3.0 [facility] Comment on above: Serial tumor marker results determined by assays using different manufacturers or methods may not be comparable.[facility] Laboratory mental health technician and method:RUSSELL UNICEL DXI, 2 SITE IMMUNOENZYMATIC SANDWICH ASSAY. Serum or plasma gamma globul in measurement by electrophoresis (mass/volume)Ordered By: Jesus Ayala on 08-02-2024 Gamma globulin Elph [Mass/Vol] Serum or plasma gamma globulin measurement by electrophoresis (mass/volume) 0.4-1.8 [facility] Sodium [Moles/volume] in Ser um or PlasmaOrdered By: Jesus Ayala on 08-02-2024 Sodium [Moles/Vol] 138 mmol/L Normal 136-145 [facility] Comment on above: Performed By: #### U PE RAND, CAMILLA,URINE, ALDOLASE, SPE, CAMILLA SERUM #### [facility] , #### ADDONUAPLUS, T4F, ESR, CMP, CK, CBC, CRP, TSH3 #### [facility] [address] Sodium [Moles/Vol] Sodium [Moles/volume ] in Serum or Plasma 136-145 [facility] Specific gravity Test strip (U) [Rel density]Ordered By: Jesus Ayala on 08-02-2024 Specific gravity (U) [Rel density] 1.013 1.001-1.030 [facility] Specific gravity (U) [Rel density] Specific gravity of Urine by Test strip 1.001-1.030 [facility] Thyrotropin [Units/volume] i n Serum or PlasmaOrdered By: Jesus Ayala on 08-02-2024 TSH Qn 2.77 m[IU]/L Normal 0.45-5.33 [facility] Comment on above: Result Comment: PERF ORMED BY: [place] [address] PATHOLOGIST FAMILY SERVICES ASSISTANT ANAHY MCKEE M.D. Performed By: #### U PE RAND, CAMILLA,URINE, ALDOLASE, SPE, CAMILLA SERUM #### [facility] , #### ADDONUAPLUS, T4F, ESR, CMP, CK, CBC, CRP, TSH3 #### [facility] [address] [place] [address] [place] TSH Qn Thyrotropin [Units/volume] in Serum or Plasma 0.45-5.33 [facility] Thyroxine (T4) free [Mass/vo lume] in Serum or PlasmaOrdered By: Jesus Ayala on 08-02-2024 Free T4 [Mass/Vol] 0.68 ng/dL Normal 0.61-1.12 [facility] Comment on above: Performed By: #### U PE RAND, CAMILLA,URINE, ALDOLASE, SPE, CAMILLA SERUM #### [facility] , #### ADDONUAPLUS, T4F, ESR, CMP, CK, CBC, CRP, TSH3 #### [facility] [address] [place] [address] [place] Free T4 [Mass/Vol] Thyroxine (T4) free [Mass/volume] in Serum or Plasma 0.61-1.12 [facility] Urea nitrogen [Mass/volume] in Serum or PlasmaOrdered By: Jesus Ayala on 08-02-2024 Urea nitrogen [Mass/Vol] 14 mg/dL Normal 04-29 [facility] Comment on above: Performed By: #### U PE RAND, CAMILLA,URINE, ALDOLASE, SPE, CAMILLA SERUM #### [facility] , #### ADDONUAPLUS, T4F, ESR, CMP, CK, CBC, CRP, TSH3 #### [facility] [address] Urea nitrogen [Mass/Vol] Urea nitrogen [Mass/volume] in Serum or Plasma 04-29 [facility] Urine alpha 1 globulin/total protein by electrophoresisOrdered By: Jesus Ayala on 08-02-2024 Alpha 1 globulin Elph (U) [Mass fraction] Urine alpha 1 globulin/total protein by electrophoresis . [facility] Urine alpha 2 globulin/total protein ratio by electrophoresisOrdered By: Jesus Ayala on 08-02-2024 Alpha 2 globulin Elph (U) [Mass fraction] Urine alpha 2 globulin/total protein ratio by electrophoresis . [facility] Urine appearanceOrdered By: Jesus Ayala on 08-02-2024 Appearance (U) Clear Normal Clear [facility] Comment on above: Order Comment: Name Collection Type:: Clean-Voided Midstream Performed By: #### U PE RAND, CAMILLA,URINE, ALDOLASE, SPE, CAMILLA SERUM #### [facility] , #### ADDONUAPLUS, T4F, ESR, CMP, CK, CBC, CRP, TSH3 #### [address] Urine bacteria detection by automated methodOrdered By: Jesus Ayala on 08-02-2024 Bacteria Auto Ql (U) Bacteria [Presence] in Urine by Automated None Seen [facility] Urine beta globulin measurem ent by electrophoresis (mass/volume)Ordered By: Jesus Ayala on 08-02-2024 Beta globulin Elph (U) [Mass/Vol] Urine beta globulin measurement by electrophoresis (mass/volume) . [facility] Urine protein measurement (m ass/volume)Ordered By: Jesus Ayala on 08-02-2024 Protein (U) [Mass/Vol] Protein [Mass/vol ume] in Urine Not Estab. [facility] Urobilinogen Test strip (U) [Mass/Vol]Ordered By: Jesus Ayala on 08-02-2024 Urobilinogen (U) [Mass/Vol] Normal mg/dL Normal [facility] Urobilinogen (U) [Mass/Vol] Urobilinogen [Mass/volume] in Urine by Test strip Normal [facility] WBC Auto (Bld) [#/Vol]Ordere d By: Jesus Ayala on 08-02-2024 WBC (Bld) [#/Vol] Leukocytes [#/volume ] in Blood by Automated count 3.8-11.6 [facility] XR chest 2V*on 08-02-2024 XR chest 2V* [facility] [place] [address] [place] [address] XRay Report Signed Patient: Mandeep Puri MR#: [id number] 15 : 1975 Acct:[id number] Age/Sex: 48 / F ADM Date: 08/02/24 Loc: XD Room: Type: [facility] Attending Dr: Jesus Ayala MD Copies to: [...] Trupti Adorno M.D.08/02/2024 4:18 PM Dictation Location: [place] [address] Transcribed By: SALMA 08/02/24 161 Dictated By: Trupti Adorno MD 08/02/24 161 Signed By: 08/02/24 1618 Normal [facility] pH Test strip (U)Ordered By: Jesus Ayala on 08-02-2024 pH (U) pH of Urine by Test strip 5.0-9.0 [facility] pH of Urine by Test stripOrd ered By: Jesus Ayala on 08-02-2024 pH (U) 7.0 [pH] Normal 5.0-9.0 [facility] Comment on above: Order Comment: Name Collection Type:: Clean-Voided Midstream Performed By: #### U PE RAND, CAMILLA,URINE, ALDOLASE, SPE, CAMILLA SERUM #### [facility] , #### ADDONUAPLUS, T4F, ESR, CMP, CK, CBC, CRP, TSH3 #### [facility] [address] [place] [address] ALL CBC WITH AUTO DIFFon BASOPHILS ABSOLUTE AUTO 0 N [facility] Basophils/100 WBC (Bld) 0.5 % 0.2 - 2.0 % [facility] Eosinophils/100 WBC (Bld) 2.9 % 0.9 - 7.0 % [facility] Erythrocyte distribution width (RBC) [Ratio] 14.4 % 11.0 - 15.0 % [facility] Hematocrit (Bld) [Volume fraction] 35.2 % Low 36.0 - 48.0 % [facility] Hemoglobin (Bld) [Mass/Vol] 11.4 g/dL Low 12.0 - 16.0 g/dL [facility] IMMATURE GRANULOCYTES ABS AUTO 0.06 High [facility] Immature granulocytes/100 WBC (Bld) 0.7 % High 0.0 - 0.5 % [facility] Interpretation and review of laboratory results Abnormal [facility] Healthcare LYMPHOCYTES ABSOLUTE AUTO 1.1 Low [facility] Lymphocytes/100 WBC (Bld) 14 % Low 20.5 - 60.0 % [facility] MCH (RBC) [Entitic mass] 28 pg 26.7 - 34.0 pg [facility] MCHC (RBC) [Mass/Vol] 32.4 g/dL 29.9 - 35.2 g/dL [facility] MCV (RBC) [Entitic vol] 86.5 fL 81.0 - 99.0 fL [facility] MONOCYTES ABSOLUTE AUTO 0.4 N [facility] Monocytes/100 WBC (Bld) 5 % 1.7 - 12.0 % [facility] NEUTROPHILS ABSOLUTE AUTO 6.3 [facility] Neutrophils/100 WBC (Bld) 76.9 % High 43.0 - 75.0 % [facility] Platelet mean volume (Bld) [Entitic vol] 8.3 fL Low 9.5 - 13.5 fL [facility] TBH EO # 0.2 [facility] PLT 362 [facility] TB RBC 4.07 Low [facility] TB WBC 8.2 [facility] Follow-Upon 07-07-2024 Follow-Up [id number] Antonio Puri i 1975 F Date Provider Department Center 07/07/2024 [facility] Family History Problem Relation Age of Onset Fibromyalgia Mother Heart disease Father Hypertension Sister Polycystic kidney disease Sister Hypertension Brother Polycystic kidney disease Brother Family Status - Relation Status Age at Mother Father Sister Brother Level of Service:61978 [place] OFFICE/OUTPATIENT ESTABLISHED LOW MDM 20 MIN Reason for Visit and Comments: UTI [[id number]] - CT results Normal [facility] URINE CULTURE, ROUTINEon Bacteria identified Cx Nom (U) ESCHERICHIA COLI Abnormal [facility] Comment on above: Result Comment: >100 ,000 CFU/Ml Escherichia coli Susceptibility to Follow Performed By: #### L [id number] #### [facility] [address] [place] [address] CT ABDOMEN PELVIS WO IV CONT Mer [...] kidney with innumerable circumscribed lesions within the [place] kidneys, many which are simple cysts, others [...] Epperson MD. Not Vldtd Invalid Interpretation Code [facility] ALL CBC WITH AUTO DIFFon BASOPHILS ABSOLUTE AUTO 0.0 N [facility] Basophils/100 WBC (Bld) 0.4 % 0.2 - 2.0 % [facility] Eosinophils/100 WBC (Bld) 2.4 % 0.9 - 7.0 % [facility] Erythrocyte distribution width (RBC) [Ratio] 15.5 % High 11.0 - 15.0 % [facility] Hematocrit (Bld) [Volume fraction] 37.7 % 36.0 - 48.0 % [facility] Hemoglobin (Bld) [Mass/Vol] 11.9 g/dL Low 12.0 - 16.0 g/dL [facility] IMMATURE GRANULOCYTES ABS AUTO 0.03 [facility] Immature granulocytes/100 WBC (Bld) 0.4 % 0.0 - 0.5 % [facility] Interpretation and review of laboratory results Abnormal [facility] LYMPHOCYTES ABSOLUTE AUTO 1.1 Low [facility] Lymphocytes/100 WBC (Bld) 14.8 % Low 20.5 - 60.0 % [facility] MCH (RBC) [Entitic mass] 27.9 pg 26.7 - 34.0 pg [facility] MCHC (RBC) [Mass/Vol] 31.6 g/dL 29.9 - 35.2 g/dL [facility] MCV (RBC) [Entitic vol] 88.3 fL 81.0 - 99.0 fL [facility] MONOCYTES ABSOLUTE AUTO 0.4 N [facility] Monocytes/100 WBC (Bld) 5.1 % 1.7 - 12.0 % [facility] NEUTROPHILS ABSOLUTE AUTO 5.7 [facility] Neutrophils/100 WBC (Bld) 76.9 % High 43.0 - 75.0 % [facility] Platelet mean volume (Bld) [Entitic vol] 8.6 fL Low 9.5 - 13.5 fL [facility] TBH EO # 0.2 [facility] Healthcare TBH PLT 333 [facility] Healthcare TB RBC 4.27 [facility] TBH WBC 7.5 [facility] Orders Onlyon 06-15-2024 Orders Only [id number] Antonio Puri i 1975 F Date Provider Department Center 06/15/2024 MUNIRA BAGLEY None Family History Problem Relation Age of Onset Fibromyalgia Mother Heart disease Father Hypertension Sister Polycystic kidney disease Sister Hypertension Brother Polycystic kidney disease Brother Family Status - Relation Status Age at Mother Father Sister Brother Normal [facility] ALL CBC WITH AUTO DIFFon BASOPHILS ABSOLUTE AUTO 0.0 N [facility] Basophils/100 WBC (Bld) 0.5 % 0.2 - 2.0 % [facility] Eosinophils/100 WBC (Bld) 3.0 % 0.9 - 7.0 % [facility] Erythrocyte distribution width (RBC) [Ratio] 15.9 % High 11.0 - 15.0 % [facility] Hematocrit (Bld) [Volume fraction] 36.3 % 36.0 - 48.0 % [facility] Hemoglobin (Bld) [Mass/Vol] 11.8 g/dL Low 12.0 - 16.0 g/dL [facility] IMMATURE GRANULOCYTES ABS AUTO 0.04 High [facility] Immature granulocytes/100 WBC (Bld) 0.5 % 0.0 - 0.5 % [facility] Interpretation and review of laboratory results Abnormal [facility] LYMPHOCYTES ABSOLUTE AUTO 1.2 [facility] Lymphocytes/100 WBC (Bld) 14.0 % Low 20.5 - 60.0 % [facility] MCH (RBC) [Entitic mass] 28.0 pg 26.7 - 34.0 pg [facility] MCHC (RBC) [Mass/Vol] 32.5 g/dL 29.9 - 35.2 g/dL [facility] MCV (RBC) [Entitic vol] 86.0 fL 81.0 - 99.0 fL [facility] MONOCYTES ABSOLUTE AUTO 0.5 N [facility] Monocytes/100 WBC (Bld) 5.7 % 1.7 - 12.0 % [facility] NEUTROPHILS ABSOLUTE AUTO 6.4 [facility] Neutrophils/100 WBC (Bld) 76.3 % High 43.0 - 75.0 % [facility] Platelet mean volume (Bld) [Entitic vol] 8.6 fL Low 9.5 - 13.5 fL [facility] TBH EO # 0.3 [facility] TBH PLT 331 [facility] TB RBC 4.22 [facility] TB WBC 8.4 [facility] Consulton 05-19-2024 Consult [id number] Atnonio Puri i 1975 F Date Provider Department Center 05/19/2024 [facility] Family History Problem Relation Age of Onset Fibromyalgia Mother Heart disease Father Hypertension Sister Polycystic kidney disease Sister Hypertension Brother Polycystic kidney disease Brother Family Status - Relation Status Age at Mother Father Sister Brother Level of Service:50638 [place] OFFICE/OUTPATIENT ESTABLISHED MOD MDM 30 MIN Reason for Visit and Comments: UTI [[id number]] - Recurrent chronic ecoli , has fibromyalgia and when that flairs up the UTI happens Normal [facility] CREATININE, URINE, RANDOMon 04-27-2024 Creatinine (U) [Mass/Vol] 142.0 mg/dL Normal 26-299 [facility] Comment on above: Performed By: #### L [id number] #### [facility] [address] [place] [address] Follow-Upon 04-27-2024 Follow-Up [id number] Antonio Puri i 1975 F Date Provider Department Center 04/27/2024 [facility] None Family History Problem Relation Age of Onset Fibromyalgia Mother Heart disease Father Hypertension Sister Polycystic kidney disease Sister Hypertension Brother Polycystic kidney disease Brother Family Status - Relation Status Age at Mother Father Sister Brother Level of Service:53517 [place] OFFICE/OUTPATIENT ESTABLISHED MOD MDM 30 MIN [...] mg because they are smaller pills. Normal [facility] PROTEIN, URINE, RANDOMon Protein (U) [Mass/Vol] 51.7 mg/dL [facility] Comment on above: Result Comment: Ther e are no established reference values for random urine specimens. Performed By: #### L [id number] ####[facility] [place] [address] URINALYSISon 04-27-2024 BILIRUBIN, TOTAL PRESENCE IN URINE Negative Normal Negative [facility] Comment on above: Performed By: #### L [id number] #### [facility] [address] [place] [address] Clarity (U) Slightly Cloudy Abnormal Clear [facility] Comment on above: Performed By: #### L [id number] #### [facility] [address] [place] [address] Color (U) Yellow Normal Yellow [facility] Comment on above: Performed By: #### L [id number] #### [facility] [address] [place] [address] Glucose (U) [Mass/Vol] Negative Normal Negative Un [facility] Comment on above: Performed By: #### L [id number] #### [facility] ([facility]) [address] [place] [address] HEMOGLOBIN PRESENCE IN URINE Small Abnormal Negative [facility] Comment on above: Performed By: #### L [id number] #### [facility] ([facility]) [address] [place] [address] Ketones Ql (U) Negative Normal Negative [facility] Comment on above: Performed By: #### L [id number] #### [facility] ([facility]) [address] [place] [address] LEUKOCYTE ESTERASE PRESENCE IN URINE BY TEST STRIP Large Abnormal Negative [facility] Comment on above: Performed By: #### L [id number] #### [facility] ([facility]) [address] [place] [address] NITRITE PRESENCE IN URINE Positive Abnormal Negative [facility] Comment on above: Performed By: #### L [id number] #### [facility] ([facility]) [address] [place] [address] pH (U) 6.0 [pH] Normal 5.0-8.0 [facility] Comment on above: Performed By: #### L [id number] #### [facility] ([facility]) [address] [place] [address] Protein (U) [Mass/Vol] 100 mg/dL Abnormal Negative [facility] Comment on above: Performed By: #### L [id number] #### [facility] ([facility]) [address] [place] [address] Specific gravity (U) [Rel density] 1.012 Low 1.015-1.020 [facility] Comment on above: Performed By: #### L [id number] #### [facility] ([facility]) [address] [place] [address] URINALYSIS MICROSCOPICon CASTS IN URINE Normal [facility] Comment on above: Performed By: #### L [id number] #### [facility] [address] [place] [address] CRYSTALS IN URINE Normal [facility] Comment on above: Performed By: #### L [id number] #### [facility] [address] [place] [address] MUCUS (#/HPF) IN URINE SEDIMENT Occasional Normal None Seen, Occasional, Few [facility] Comment on above: Performed By: #### L [id number] #### [facility] ([facility]) [address] [place] [address] RBC (#/HPF) IN URINE SEDIMENT 11-20 Abnormal None Seen [facility] Comment on above: Performed By: #### L [id number] #### [facility] ([facility]) [address] [place] [address] SQUAMOUS EPITHELIAL CELLS (#/HPF) IN URINE SEDIMENT Moderate Abnormal None Seen, Occasional [facility] Comment on above: Performed By: #### L [id number] #### [facility] ([facility]) [address] [place] [address] WBC (LEUKOCYTE) (#/HPF) IN URINE SEDIMENT >100 Abnormal None Seen [facility] Comment on above: Performed By: #### L [id number] #### [facility] ([facility]) [address] [place] [address] URINE CULTURE, ROUTINEon Bacteria identified Cx Nom (U) ESCHERICHIA COLI Abnormal [facility] Comment on above: Result Comment: >100 ,000 CFU/Ml Escherichia coli Susceptibility to Follow Performed By: #### L [id number] ####[facility] ([facility] [place] [address] BILIRUBIN, DIRECTon 04-23-20 24 Magnesium [Mass/Vol] 0.0 mg/dL Normal 0-0.2 [facility] Comment on above: Performed By: #### L [id number] #### [facility] ([facility] [address] [place] [address] CBC WITH AUTO DIFFERENTIALon 04-23-2024 Basophils (Bld) [#/Vol] 0.05 10*3/uL Normal 0.00-0.20 [facility] Comment on above: Performed By: #### L [id number] #### [facility] ([facility]) [address] [place] [address] Basophils/100 WBC (Bld) 0.6 % Normal 0.0-1.0 [facility] Comment on above: Performed By: #### L [id number] #### [facility] ([facility] [address] [place] [address] Eosinophils (Bld) [#/Vol] 0.17 10*3/uL Normal 0.00-0.50 [facility] Comment on above: Performed By: #### L [id number] #### [facility] ([facility] [address] [place] [address] Eosinophils/100 WBC (Bld) 1.9 % Normal 0.0-6.0 [facility] Comment on above: Performed By: #### L [id number] #### [facility] ([facility]) [address] [place] [address] Erythrocyte distribution width (RBC) [Ratio] 15.7 % High 11.5-15.0 [facility] Comment on above: Performed By: #### L [id number] #### [facility] ([facility] [address] [place] [address] ERYTHROCYTE MEAN CORPUSCULAR HEMOGLOBIN CONCENTRATION (G/DL) BY AUTOMATED 32.7 g/dL Normal 32.0-35.0 [facility] Comment on above: Performed By: #### L [id number] #### [facility] ([facility] [address] [place] [address] Hematocrit (Bld) [Volume fraction] 39.2 % Normal 36.0-48.0 [facility] Comment on above: Performed By: #### L [id number] #### [facility] ([facility]) [address] [place] [address] Hemoglobin (Bld) [Mass/Vol] 12.8 g/dL Normal 12.0-15.0 [facility] Comment on above: Performed By: #### L [id number] #### [facility] ([facility] [address] [place] [address] Immature granulocytes (Bld) [#/Vol] 0.06 10*3/uL Normal 0.00-0.20 [facility] Comment on above: Performed By: #### L [id number] #### [facility] ([facility] [address] [place] [address] Immature granulocytes/100 WBC (Bld) 0.7 % Normal 0.0-1.0 [facility] Comment on above: Performed By: #### L [id number] #### [facility] ([facility]) [address] [place] [address] Lymphocytes (Bld) [#/Vol] 1.27 10*3/uL Normal 1.20-4.00 [facility] Comment on above: Performed By: #### L [id number] #### [facility] ([facility]) [address] [place] [address] Lymphocytes/100 WBC (Bld) 14.5 % Low 20.0-45.0 [facility] Comment on above: Performed By: #### L [id number] #### [facility] ([facility]) [address] [place] [address] MCH (RBC) [Entitic mass] 27.7 pg Normal 27.0-33.0 [facility] Comment on above: Performed By: #### L [id number] #### [facility] ([facility]) [address] [place] [address] MCV (RBC) [Entitic vol] 84.8 fL Normal 82.0-98.0 U [facility] Comment on above: Performed By: #### L [id number] #### [facility] ([facility]) [address] [place] [address] Monocytes (Bld) [#/Vol] 0.40 10*3/uL Normal 0.10-1.00 [facility] Comment on above: Performed By: #### L [id number] #### [facility] ([facility]) [address] [place] [address] Monocytes/100 WBC (Bld) 4.6 % Low 5.0-12.0 [facility] Comment on above: Performed By: #### L [id number] #### [facility] ([facility]) [address] [place] [address] Neutrophils (Bld) [#/Vol] 6.82 10*3/uL Normal 1.60-7.60 [facility] Comment on above: Performed By: #### L [id number] #### [facility] ([facility]) [address] [place] [address] Neutrophils/100 WBC (Bld) 77.7 % High 40.0-72.0 [facility] Comment on above: Performed By: #### L [id number] #### [facility] ([facility]) [address] [place] [address] NRBC (PER 100 WBCS) BY AUTOMATED COUNT 0.0 % Normal 0 [facility] Comment on above: Performed By: #### L [id number] #### [facility] ([facility]) [address] [place] [address] PLATELETS (10*3/UL) IN BLOOD AUTOMATED COUNT 337 10*3/uL Normal 150-400 [facility] Comment on above: Performed By: #### L [id number] #### [facility] ([facility]) [address] [place] [address] RBC (Bld) [#/Vol] 4.62 10*6/uL Normal 3.80-5.00 [facility] Comment on above: Performed By: #### L [id number] #### [facility] ([facility]) [address] [place] [address] WBC (Bld) [#/Vol] 8.77 10*3/uL Normal 4.00-10.60 [facility] Comment on above: Performed By: #### L [id number] #### [facility] [address] [place] [address] COMPREHENSIVE METABOLIC PANE Jonathan 04-23-2024 Albumin [Mass/Vol] 4.4 g/dL Normal 3.5-5.7 [facility] Comment on above: Performed By: #### L [id number] #### [facility] ([facility]) [address] [place] [address] ALP [Catalytic activity/Vol] 74 U/L Normal 34-104 [facility] Comment on above: Performed By: #### L [id number] #### [facility] ([facility]) [address] [place] [address] ALT [Catalytic activity/Vol] 9 U/L Normal 7-52 [facility] Comment on above: Performed By: #### L [id number] #### [facility] ([facility]) [address] [place] [address] Anion gap [Moles/Vol] 13 mmol/L Normal 7-20 [facility] Comment on above: Performed By: #### L [id number] #### [facility] ([facility]) [address] [place] [address] AST [Catalytic activity/Vol] 14 U/L Normal 13-39 [facility] Comment on above: Performed By: #### L [id number] #### [facility] ([facility]) [address] [place] [address] Bilirubin [Mass/Vol] 0.4 mg/dL Normal 0.3-1.0 [facility] Comment on above: Performed By: #### L [id number] #### [facility] ([facility]) [address] [place] [address] Calcium [Mass/Vol] 9.4 mg/dL Normal 8.6-10.3 [facility] Comment on above: Performed By: #### L [id number] #### [facility] ([facility]) [address] [place] [address] Chloride [Moles/Vol] 104 mmol/L Normal 98-107 [facility] Comment on above: Performed By: #### L [id number] #### [facility] ([facility]) [address] [place] [address] CO2 [Moles/Vol] 25 mmol/L Normal 21-31 [facility] Comment on above: Performed By: #### L [id number] #### [facility] ([facility]) [address] [place] [address] Creatinine [Mass/Vol] 1.09 mg/dL Normal 0.60-1.20 [facility] Comment on above: Performed By: #### L [id number] #### [facility] ([facility]) [address] [place] [address] GLOMERULAR FILTRATION RATE ML/MIN/1.73 SQ M.PREDICTED 62.7 mL/min/1.73m*2 Normal >60.0 [facility] [...] individuals. Performed By: #### L [id number] #### [facility] ([facility]) [address] [place] [address] Glucose [Mass/Vol] 108 mg/dL High 70-100 [facility] Comment on above: Performed By: #### L [id number] #### [facility] ([facility]) [address] [place] [address] Potassium [Moles/Vol] 3.5 mmol/L Normal 3.5-5.1 [facility] Comment on above: Performed By: #### L [id number] #### [facility] ([facility] [address] [place] [address] Protein [Mass/Vol] 7.6 g/dL Normal 6.0-8.3 [facility] Comment on above: Performed By: #### L [id number] #### [facility] ([facility] [address] [place] [address] Sodium [Moles/Vol] 138 mmol/L Normal 136-145 [facility] Comment on above: Performed By: #### L [id number] #### [facility] ([facility]) [address] [place] [address] Urea nitrogen [Mass/Vol] 13 mg/dL Normal 7-25 [facility] Comment on above: Performed By: #### L [id number] #### [facility] ([facility]) [address] [place] [address] UREA NITROGEN/CREATININE (MASS RATIO) IN SER/PLAS 11.9 Normal [facility] Comment on above: Performed By: #### L [id number] #### [facility] ([facility] [address] [place] [address] HEMOGLOBIN A1Con 04-23-2024 Glucose [Mass/Vol] 105 mg/dL Normal [facility] Comment on above: Performed By: #### L AB90 #### [facility] ([facility]) [address] [place] [address] HbA1c (Bld) [Mass fraction] 5.3 % Normal 4.0-6.0 [facility] Comment on above: Performed By: #### L AB90 #### [facility] ([facility]) [address] [place] [address] LIPID PANELon 04-23-2024 CHOL/HDL 4.0 mg/dL Normal [facility] Comment on above: Performed By: #### L [id number] #### [facility] ([facility] [address] [place] [address] Cholesterol [Mass/Vol] 182 mg/dL Normal 120-200 Un [facility] Comment on above: Performed By: #### L [id number] #### [facility] ([facility]) [address] [place] [address] Magnesium [Mass/Vol] 166 mg/dL High 40-149 [facility] Comment on above: Result Comment: TRIG LYCERIDE REFERENCE RANGE: 20 YEARS AND OLDER CARDIOVASCULAR RISK LESS THAN 150 mg/dL LOW RISK 150 TO 199 mg/dL BORDERLINE RISK 200 mg/dL AND GREATER HIGH RISK Performed By: #### L [id number] #### [facility] ([facility]) [address] [place] [address] Magnesium [Mass/Vol] 103 mg/dL Normal 0-160 [facility] Comment on above: Performed By: #### L [id number] #### [facility] ([facility]) [address] [place] [address] Magnesium [Mass/Vol] 46 mg/dL Normal 23-92 [facility] Comment on above: Performed By: #### L [id number] #### [facility] ([facility]) [address] [place] [address] NON HDL CHOL. (LDL+VLDL) 136 Normal [facility] Comment on above: Performed By: #### L [id number] #### [facility] ([facility]) [address] [place] [address] TOTAL VLDL-C 33 mg/dL Normal 0-40 [facility] Comment on above: Performed By: #### L [id number] #### [facility] ([facility]) [address] [place] [address] Labon 04-23-2024 Lab [id number] Antonio Puri i 1975 F Date Provider Department Center 04/23/2024 28[facility] Medical C Family History Problem Relation Age of Onset Fibromyalgia Mother Heart disease Father Hypertension Sister Polycystic kidney disease Sister Hypertension Brother Polycystic kidney disease Brother Family Status - Relation Status Age at Mother Father Sister Brother Normal [facility] MAGNESIUMon 04-23-2024 Magnesium [Mass/Vol] 1.8 mg/dL Low 1.9-2.7 [facility] Comment on above: Performed By: #### L [id number] #### [facility] ([facility]) [address] [place] [address] PHOSPHORUSon 04-23-2024 Magnesium [Mass/Vol] 2.8 mg/dL Normal 2.5-5.0 [facility] Comment on above: Performed By: #### L [id number] #### [facility] ([facility]) [address] [place] [address] TACROLIMUS LEVELon Tacrolimus (Bld) [Mass/Vol] 10.5 ng/mL Normal 5.0-20.0 [facility] Comment on above: Result Comment: The [employer] Tacrolimus assay is a delayed one-step immunoassay for the quantitative determination of tacrolimus in human whole blood using the chemiluminescent microparticle immunoassay (CMIA) technology with flexible assay protocols, referred to as Chemiflex. Performed By: #### L [id number] #### [facility] ([facility]) [address] [place] [address] URIC ACIDon 04-23-2024 Magnesium [Mass/Vol] 4.0 mg/dL Normal 2.3-6.6 [facility] Comment on above: Performed By: #### L [id number] #### [facility] ([facility]) [address] [place] [address] URINALYSISon 04-23-2024 BILIRUBIN, TOTAL PRESENCE IN URINE Negative Normal Negative [facility] Comment on above: Performed By: #### L [id number] #### [facility] ([facility]) [address] [place] [address] Clarity (U) Cloudy Abnormal Clear [facility] Comment on above: Performed By: #### L [id number] #### [facility] ([facility]) [address] [place] [address] Color (U) Yellow Normal Yellow [facility] Comment on above: Performed By: #### L [id number] #### [facility] ([facility]) [address] [place] [address] Glucose (U) [Mass/Vol] Negative Normal Negative [facility] Comment on above: Performed By: #### L [id number] #### [facility] ([facility]) [address] [place] [address] HEMOGLOBIN PRESENCE IN URINE Negative Normal Negative [facility] Comment on above: Performed By: #### L [id number] #### [facility] ([facility]) [address] [place] [address] Ketones Ql (U) Negative Normal Negative [facility] Comment on above: Performed By: #### L [id number] #### [facility] ([facility]) [address] [place] [address] LEUKOCYTE ESTERASE PRESENCE IN URINE BY TEST STRIP Negative Normal Negative [facility] Comment on above: Performed By: #### L [id number] #### [facility] ([facility]) [address] [place] [address] NITRITE PRESENCE IN URINE Negative Normal Negative [facility] Comment on above: Performed By: #### L [id number] #### [facility] ([facility]) [address] [place] [address] pH (U) 7.0 [pH] Normal 5.0-8.0 [facility] Comment on above: Performed By: #### L [id number] #### [facility] ([facility]) [address] [place] [address] Protein (U) [Mass/Vol] Negative Normal Negative [facility] Comment on above: Performed By: #### L [id number] #### [facility] ([facility]) [address] [place] [address] Specific gravity (U) [Rel density] 1.011 Low 1.015-1.020 [facility] Comment on above: Performed By: #### L [id number] #### [facility] ([facility]) [address] [place] [address] URINALYSIS MICROSCOPICon AMORPHOUS CRYSTALS (#/HPF) IN URINE Few Abnormal None Seen [facility] Comment on above: Performed By: #### L [id number] #### [facility] ([facility]) [address] [place] [address] CASTS IN URINE Normal [facility] Comment on above: Performed By: #### L [id number] #### [facility] ([facility]) [address] [place] [address] CRYSTALS IN URINE Normal [facility] Comment on above: Performed By: #### L [id number] #### [facility] ([facility]) [address] [place] [address] MUCUS (#/HPF) IN URINE SEDIMENT Occasional Normal None Seen, Occasional, Few [facility] Comment on above: Performed By: #### L [id number] #### [facility] ([facility]) [address] [place] [address] RBC (#/HPF) IN URINE SEDIMENT 3-5 Abnormal None Seen [facility] Comment on above: Performed By: #### L [id number] #### [facility] ([facility]) [address] [place] [address] SQUAMOUS EPITHELIAL CELLS (#/HPF) IN URINE SEDIMENT Many Abnormal None Seen, Occasional [facility] Comment on above: Performed By: #### L [id number] #### [facility] ([facility]) [address] [place] [address] WBC (LEUKOCYTE) (#/HPF) IN URINE SEDIMENT 3-5 Abnormal None Seen [facility] Comment on above: Performed By: #### L [id number] #### [facility] ([facility]) [address] [place] [address] URINE CULTURE, ROUTINEon Bacteria identified Cx Nom (U) <10,000 CFU/ML No Significant Growth Normal [facility] Comment on above: Performed By: #### L [id number] #### [facility] ([facility]) [address] [place] [address] US RENAL COMPLETEon 04-14-20 24 US RENAL COMPLETE EXAM: Renal Ultrasou nd with Doppler: REASON FOR EXAM: Polycystic kidneys. COMPARISON: None. TECHNIQUE: Real-time ultrasonographic evaluation of the kidneys is performed with color flow Doppler. FINDINGS: There is a transplanted right kidney. Right kidney: Numerous [place] right renal cysts. No hydronephrosis. Left kidney: Numerous [place] left renal cysts. No hydronephrosis. Uniform and [...] report is generated using voice recognition reporting (Kiddy). On occasion [employer] erroneously drops words from the report or replaces the spoken word with similar sounding words. Please call with any questions/concerns regarding this report.* Dictated and transcribed 04/14/2024/heriberto This report has been electronically signed and approved by the interpreting radiologist. Electronically Signed René Raymond M.D. 2024-04-14 16:31:56 Normal Not Available Urine Cultureon 03-15-2024 Bacteria identified Cx Nom (U) ORGANISM: Escherichia coli (MDRO) (O:ESCCOLMDRO) [place] Count >100,000 Aerobic CODI Charge (NMIC56) - [...] RESISTANT TO ALL B-LACTAM DRUGS. PERFORMED BY: [place] [address] PATHOLOGIST FAMILY SERVICES ASSISTANT ANAHY MCKEE M.D. Normal [facility] Comment on above: Performed By: #### C UU #### [address] [place] Antinuclear Antibodieson 11-06-2023 Antinuclear Abs, IFA Negative Normal . [facility] Comment on above: Result Comment: Nega tive <1:80 Borderline 1:80 Positive >1:80 ICAP nomenclature: AC-0 For more information about Hep-2 cell patterns use ANApatterns.org, the official website for the International Consensus on Antinuclear Antibody ([place]) Patterns (ICAP). Performed at: [facility] [id number] Planning Rn: Gabriel Whitman PhD, Phone: [phone] PERFORMED BY: [place] [address] PATHOLOGIST FAMILY SERVICES ASSISTANT ANAHY MCKEE M.D. Performed By: #### C BC, CMP, CK, CRP, ESR ####[place] [address] [place] [id number] [facility]#### [place] ####[facility] , Alanine aminotransferase [En zymatic activity/volume] in Serum or PlasmaOrdered By: Perri Ceja on 11-06-2023 ALT [Catalytic activity/Vol] 20 U/L Normal 7-52 [facility] Comment on above: Performed By: #### C BC, CMP, CK, CRP, ESR ####[place] [address] [place] [id number] [place]#### [place] ####[facility] , Albumin [Mass/volume] in Ser um or Plasma by Bromocresol green (BCG) dye binding methoOrdered By: Perri Ceja on 11-06-2023 Albumin BCG dye [Mass/Vol] 4.7 g/dL 3.5-5.7 [facility] Alkaline phosphatase [Enzyma tic activity/volume] in Serum or PlasmaOrdered By: Perri Ceja on 11-06-2023 ALP [Catalytic activity/Vol] 96 U/L Normal 34-104 [facility] Comment on above: Performed By: #### C BC, CMP, CK, CRP, ESR ####[place] [address] [place]#### [place] ####[facility] , Aspartate aminotransferase [ Enzymatic activity/volume] in Serum or PlasmaOrdered By: Perri Ceja on 11-06-2023 AST [Catalytic activity/Vol] 16 U/L Normal 13-39 [facility] Comment on above: Performed By: #### C BC, CMP, CK, CRP, ESR ####[place] [address] [place]#### [place] ####[facility] , Automated basophil %Ordered By: Perri Ceja on 11-06-2023 Basophils/100 WBC (Bld) 0.7 % Normal . [facility] Comment on above: Performed By: #### C BC, CMP, CK, CRP, ESR ####[address]#### [place] ####[facility] , Automated basophil countOrde red By: Perri Ceja on 11-06-2023 Basophils (Bld) [#/Vol] 0.1 10*3/uL Normal 0.0-0.2 [facility] Comment on above: Performed By: #### C BC, CMP, CK, CRP, ESR ####[place] [address] [place]#### [place] ####[facility] , Automated blood monocyte cou ntOrdered By: Perri Ceja on 11-06-2023 Monocytes (Bld) [#/Vol] 0.6 10*3/uL Normal 0.0-0.8 [facility] Comment on above: Performed By: #### C BC, CMP, CK, CRP, ESR ####[place] [address] [place]#### [place] ####[facility] , Automated eosinophil %Ordere d By: Perri Ceja on 11-06-2023 Eosinophils/100 WBC (Bld) 3.0 % Normal . [facility] Comment on above: Performed By: #### C BC, CMP, CK, CRP, ESR ####[place] [address] [place]#### [place] ####[facility] , Automated eosinophil countOr dered By: Perri Ceja on 11-06-2023 Eosinophils (Bld) [#/Vol] 0.3 10*3/uL Normal 0.0-0.45 [facility] Comment on above: Performed By: #### C BC, CMP, CK, CRP, ESR ####[place] [address] [place]#### [place] ####[facility] , Automated monocyte %Ordered By: Perri Ceja on 11-06-2023 Monocytes/100 WBC (Bld) 6.6 % Normal . [facility] Comment on above: Performed By: #### C BC, CMP, CK, CRP, ESR ####[place] [address] [place] [address] [place]#### [place] ####[facility] , Automated neutrophil %Ordere d By: Perri Ceja on 11-06-2023 Neutrophils/100 WBC (Bld) 72.1 % Normal . [facility] Comment on above: Performed By: #### C BC, CMP, CK, CRP, ESR ####[address]#### [place] ####[facility] , Bilirubin.total [Mass/volume ] in Serum or PlasmaOrdered By: Perri Ceja on 11-06-2023 Bilirubin [Mass/Vol] 0.4 mg/dL Normal 0.3-1.0 [facility] Comment on above: Performed By: #### C BC, CMP, CK, CRP, ESR ####[address]#### [place] ####[facility] , C reactive protein [Mass/vol ume] in Serum or PlasmaOrdered By: Perri Ceja on 11-06-2023 CRP [Mass/Vol] 2.0 mg/dL 0.0-0.5 [facility] C-Reactive Proteinon 024 C-Reactive Protein 2.0 mg/dL High 0.0-0.5 [facility] Comment on above: Result Comment: PERF ORMED BY: [facility] [address] [place] [address] PATHOLOGIST FAMILY SERVICES ASSISTANT ANAHY MCKEE M.D. Performed By: #### C BC, CMP, CK, CRP, ESR ####[place] [address] [place]#### PAPITO ####[facility] , Calcium [Mass/volume] in Ser um or PlasmaOrdered By: Perri Ceja on 11-06-2023 Calcium [Mass/Vol] 10.3 mg/dL Normal 8.6-10.3 [facility] Comment on above: Performed By: #### C BC, CMP, CK, CRP, ESR ####[address]#### P[place]O ####[facility] , Carbon dioxide, total [Moles /volume] in Serum or PlasmaOrdered By: Perri Ceja on 11-06-2023 CO2 [Moles/Vol] 26.1 mmol/L Normal 21.0-31.0 [facility] Comment on above: Performed By: #### C BC, CMP, CK, CRP, ESR ####[address]#### P[place]O ####[facility] , Chloride [Moles/volume] in S aislinn or PlasmaOrdered By: Perri Ceja on 11-06-2023 Chloride [Moles/Vol] 104 mmol/L Normal 98-107 [facility] Comment on above: Performed By: #### C BC, CMP, CK, CRP, ESR ####[address]#### P[place]ITO ####[facility] , Complete Blood Count Auto Di ffon 11-06-2023 Mean Corpuscular HGB Conc 33.6 g/dL Normal 32.0-35.0 [facility] Comment on above: Performed By: #### C BC, CMP, CK, CRP, ESR ####[place] [address] [place]#### P[place]ITO ####[facility] , NRBC% 0.1 /100{WBC} Normal 0-0.5 [facility] Comment on above: Performed By: #### C BC, CMP, CK, CRP, ESR ####[place] [address] [place]#### P[place]ITO ####[facility] , Comprehensive Metabolic Pane jonathan 11-06-2023 Albumin [Mass/Vol] 4.7 g/dL Normal 3.5-5.7 [facility] Comment on above: Performed By: #### C BC, CMP, CK, CRP, ESR ####[address]#### P[place]O ####[facility] , GFR/1.73 sq M.predicted MDRD (S/P/Bld) [Vol rate/Area] 57.919 mL/min/{1.73_m2} Normal [facility] Comment on above: Performed By: #### C BC, CMP, CK, CRP, ESR ####[address]#### P[place]ITO ####[facility] , Creatine kinase [Enzymatic a ctivity/volume] in Serum or PlasmaOrdered By: Perri Ceja on 11-06-2023 CK [Catalytic activity/Vol] 30 U/L Normal 30-223 [facility] Comment on above: Result Comment: PERF ORMED BY: [facility] [address] [place] [address] PATHOLOGIST FAMILY SERVICES ASSISTANT ANAHY MCKEE M.D. Performed By: #### C BC, CMP, CK, CRP, ESR ####[address]#### P[place]ITO ####[facility] , Creatinine [Mass/volume] in Serum or PlasmaOrdered By: Perri Ceja on 11-06-2023 Creatinine [Mass/Vol] 1.17 mg/dL Normal 0.60-1.20 [facility] Comment on above: Performed By: #### C BC, CMP, CK, CRP, ESR ####[address]#### P[place]ITO ####[facility] , Erythrocyte Sedimentation Ra mathieu 11-06-2023 ESR (Bld) [Velocity] 49 mm/h High 0-19 [facility] Comment on above: Result Comment: PERF ORMED BY: [facility] [address] [place] [address] PATHOLOGIST FAMILY SERVICES ASSISTANT ANAHY MCKEE M.D. Performed By: #### C BC, CMP, CK, CRP, ESR ####[facility]#### PAPITO ####[facility] , Erythrocyte distribution wid th [Ratio] by Automated countOrdered By: Perri Ceja on 11-06-2023 Erythrocyte distribution width (RBC) [Ratio] 15.3 % Normal 11.9-15.3 [facility] Comment on above: Performed By: #### C BC, CMP, CK, CRP, ESR ####[place] [address] [address]#### PAPITO ####[facility] , Erythrocyte sedimentation ra te by Photometric methodOrdered By: Perri Ceja on 11-06-2023 ESR Photometric method (Bld) [Velocity] 49 mm/hr 0-19 [facility] Erythrocytes [#/volume] in B lood by Automated countOrdered By: Perri Ceja on 11-06-2023 RBC (Bld) [#/Vol] 4.60 10*6/uL Normal 3.60-5.00 [facility] Comment on above: Performed By: #### C BC, CMP, CK, CRP, ESR ####[place] [address] [place] [address] [place]#### PAPITO ####[facility] , Glucose [Mass/volume] in Ser um or PlasmaOrdered By: Perri Ceja on 11-06-2023 Glucose [Mass/Vol] 91 mg/dL Normal 70-100 [facility] Comment on above: ADA recommended refe rence rangeRandom Glucose Reference Range is dependent on time and content of last meal. Glucose of more than 200 mg/dL in a nonstressed, ambulatory subject supports the diagnosis of Diabetes Mellitus. Result Comment: [facility] Glucose Reference Range is dependent on time and content of last meal. Glucose of more than 200 mg/dL in a nonstressed, ambulatory subject supports the diagnosis of Diabetes Mellitus. ADA recommended reference range Performed By: #### C BC, CMP, CK, CRP, ESR ####[place] [address]#### P[place]ITO ####[facility] , Hematocrit [Volume Fraction] of Blood by Automated countOrdered By: Perri Ceja on 11-06-2023 Hematocrit (Bld) [Volume fraction] 38.9 % Normal 34.0-46.4 [facility] Comment on above: Performed By: #### C BC, CMP, CK, CRP, ESR ####[address]#### [place]O ####[facility] , Hemoglobin [Mass/volume] in BloodOrdered By: Perri Ceja on 11-06-2023 Hemoglobin (Bld) [Mass/Vol] 13.1 g/dL Normal 11.8-15.4 [facility] Comment on above: Performed By: #### C BC, CMP, CK, CRP, ESR ####[address]#### P[place]O ####[facility] , Leukocytes [#/volume] correc noah for nucleated erythrocytes in Blood by Automated counOrdered By: Perri Ceja on 11-06-2023 WBC corrected for nucl RBC Auto (Bld) [#/Vol] 8.8 10*3/uL 3.8-11.6 [facility] Leukocytes [#/volume] in Blo od by Automated countOrdered By: Perri Ceja on 11-06-2023 WBC (Bld) [#/Vol] 8.8 10*3/uL Normal 3.8-11.6 [facility] Comment on above: Performed By: #### C BC, CMP, CK, CRP, ESR ####[address]#### P[place]O ####[facility] , Lymphocytes [#/volume] in Bl ood by Automated countOrdered By: Perri Ceja on 11-06-2023 Lymphocytes (Bld) [#/Vol] 1.5 10*3/uL Normal 1.00-4.8 [facility] Comment on above: Performed By: #### C BC, CMP, CK, CRP, ESR ####[address]#### [place]O ####[facility] , Lymphocytes/100 leukocytes i n Blood by Automated countOrdered By: Perri Ceja on 11-06-2023 Lymphocytes/100 WBC (Bld) 17.6 % Normal . [facility] Comment on above: Performed By: #### C BC, CMP, CK, CRP, ESR ####[address]#### [place]O ####[facility] , MCH [Entitic mass] by Automa noah countOrdered By: Perri Ceja on 11-06-2023 MCH (RBC) [Entitic mass] 28.4 pg Normal 24.7-34.3 [facility] Comment on above: Performed By: #### C BC, CMP, CK, CRP, ESR ####[place] [address] [place]#### [place]ITO ####[facility] , MCHC Auto (RBC) [Mass/Vol]Or dered By: Perri Ceja on 11-06-2023 MCHC (RBC) [Mass/Vol] 33.6 g/dL 32.0-35.0 [facility] MCV [Entitic volume] by Auto mated countOrdered By: Perri Ceja on 11-06-2023 MCV (RBC) [Entitic vol] 84.6 fL Normal 80-100 [facility] Comment on above: Performed By: #### C BC, CMP, CK, CRP, ESR ####[place] [address] [place] [address] [place]#### PAPITO ####[facility] , Neutrophils [#/volume] in Bl ood by Automated countOrdered By: Perri Ceja on 11-06-2023 Neutrophils (Bld) [#/Vol] 6.3 10*3/uL Normal 1.8-7.7 [facility] Comment on above: Performed By: #### C BC, CMP, CK, CRP, ESR ####[place] [address] [place]#### [place]O ####[facility] , No Panel InformationOrdered By: Perri Ceja on 11-06-2023 Estimated GFR (CKD-EPI) 57.919 mL/Min [facility] Creatinine Clearance (Chem N/A [facility] Nucleated erythrocytes [Pres ence] in Blood by Automated countOrdered By: Perri Ceja on 11-06-2023 Nucleated RBC Auto Ql (Bld) 0.1 /100{WBC} 0-0.5 [facility] Platelet mean volume [Entiti c volume] in Blood by Automated countOrdered By: Perri Ceja on 11-06-2023 Platelet mean volume (Bld) [Entitic vol] 6.9 fL Normal 6.3-10.7 [facility] Comment on above: Performed By: #### C BC, CMP, CK, CRP, ESR ####[place] [address] [place]#### [place]ITO ####[facility] , Platelets [#/volume] in Bloo d by Automated countOrdered By: Perri Ceja on 11-06-2023 Platelets (Bld) [#/Vol] 393 10*3/uL Normal 150-450 [facility] Comment on above: Performed By: #### C BC, CMP, CK, CRP, ESR ####[place] [address] [place]#### [place]O ####[facility] , Potassium [Moles/volume] in Serum or PlasmaOrdered By: Perri Ceja on 11-06-2023 Potassium [Moles/Vol] 3.8 mmol/L Normal 3.5-5.1 [facility] Comment on above: Performed By: #### C BC, CMP, CK, CRP, ESR ####[address]#### [place]O ####[facility] , Protein [Mass/volume] in Ser um or PlasmaOrdered By: Perri Ceja on 11-06-2023 Protein [Mass/Vol] 7.7 g/dL Normal 6.4-8.9 [facility] Comment on above: Performed By: #### C BC, CMP, CK, CRP, ESR ####[address]#### [place]O ####[facility] , Serum globulin measurement b y calculation (mass/volume)Ordered By: Perri Ceja on 11-06-2023 Globulin (S) [Mass/Vol] 3.0 g/dL Normal [facility] Comment on above: Performed By: #### C BC, CMP, CK, CRP, ESR ####[address]#### [place] ####[facility] , Serum or plasma albumin/glob ulin mass ratioOrdered By: Perri Ceja on 11-06-2023 Albumin/Globulin [Mass ratio] 1.6 {ratio} [facility] Comment on above: Performed By: #### C BC, CMP, CK, CRP, ESR ####[place] [address] [place]#### [place]O ####[facility] , Serum or plasma anion gap de terminationOrdered By: Perri Ceja on 11-06-2023 Anion gap [Moles/Vol] 12.7 mmol/L Normal 6.0-15.0 [facility] Comment on above: Performed By: #### C BC, CMP, CK, CRP, ESR ####[facility] [place] [address] [place]#### PAPITO ####[facility] , Sodium [Moles/volume] in Ser um or PlasmaOrdered By: Perri Ceja on 11-06-2023 Sodium [Moles/Vol] 139 mmol/L Normal 136-145 [facility] Comment on above: Performed By: #### C BC, CMP, CK, CRP, ESR ####[facility] [place] [id number] [place]#### PAPITO ####[facility] , Urea nitrogen [Mass/volume] in Serum or PlasmaOrdered By: Perri Ceja on 11-06-2023 Urea nitrogen [Mass/Vol] 17 mg/dL Normal 7-25 [facility] Comment on above: Performed By: #### C BC, CMP, CK, CRP, ESR ####[facility] [place] [id number] [place]#### PAPITO ####[facility] , PTH INTACTon 07-30-2022 PTH, Intact 107 pg/mL Critically high 15-65 [facility] Comment on above: Performed By: #### M G, URIC, RENAL #### [facility] [address] [place] [address] Dr. Hari Palmer FERRITINon 07-29-2022 Ferritin [Mass/Vol] 194.0 ng/mL Critically high 6.2-137.0 [facility] Comment on above: Performed By: #### M G, URIC, RENAL #### [facility] [address] [place] [address] [address] Hari Palmer HEMOGRAM AND PLATELon 2021 Hematocrit (Bld) [Volume fraction] 32.8 % Critically low 36.0-48.0 [facility] Comment on above: Performed By: #### M G, URIC, RENAL #### [facility] [address] [place] [address] [address] Hari Palmer Hemoglobin (Bld) [Mass/Vol] 10.8 g/dL Critically low 12.0-16.0 [facility] Comment on above: Performed By: #### M G, URIC, RENAL #### [facility] [address] [place] [address] Dr. Hari Palmer MCH (RBC) [Entitic mass] 31.7 pg Normal 26.7-34.0 [facility] Comment on above: Performed By: #### M G, URIC, RENAL #### [facility] [address] [place] [address] Dr. Hari Palmer MCHC (RBC) [Mass/Vol] 32.9 g/dL Normal 29.9-35.2 [facility] Comment on above: Performed By: #### M Edy, URIC, RENAL #### [facility] [address] [place] [address] Dr. Hari Palmer MCV (RBC) [Entitic vol] 96.2 fL Normal 81.0-99.0 [facility] Comment on above: Performed By: #### M G, URIC, RENAL #### [facility] [address] [place] [address] Dr. Hari Palmer PLT 297 103/ul Normal 150-450 [facility] Comment on above: Performed By: #### M Edy, URIC, RENAL #### [facility] [address] [place] [address] Dr. Hari Palmer RBC 3.41 106/ul Critically low 4.20-5.40 [facility] Comment on above: Performed By: #### M G, URIC, RENAL #### [facility] [address] [place] [address] Dr. Hari Palmer WBC 7.1 103/ul Normal 4.0-11.0 [facility] Comment on above: Performed By: #### M G, URIC, RENAL #### [facility] [address] [place] [address] Dr. Hari Palmer IRON AND TIBCon 07-29-2022 % SATURATION 19.0 % Normal [facility] Comment on above: Performed By: #### M G, URIC, RENAL #### [facility] [address] [place] [address] [address] Hari Palmer Iron [Mass/Vol] 48.0 ug/dL Critically low 50.0-170.0 [facility] Comment on above: Performed By: #### M G, URIC, RENAL #### [facility] [address] [place] [address] Dr. Hari Palmer TIBC DIRECT 252.0 ug/dL Normal 250.0-450.0 [facility] Comment on above: Performed By: #### M G, URIC, RENAL #### [facility] [address] [place] [address] Dr. Hari Palmer MAGNESIUMon 07-29-2022 Magnesium [Mass/Vol] 2.0 mg/dL Normal 1.8-2.4 [facility] Comment on above: Performed By: #### M G, URIC, RENAL #### [facility] [address] [place] [address] Dr. Hari Palmer RENAL FUNCTION PANELon 07-29 Albumin [Mass/Vol] 3.6 g/dL Normal 3.4-5.0 [facility] Comment on above: Performed By: #### M G, URIC, RENAL #### [facility] [address] [place] [address] Dr. Hari Palmer Calcium [Mass/Vol] 8.7 mg/dL Normal 8.5-10.1 [facility] Comment on above: Performed By: #### M G, URIC, RENAL #### [facility] [address] [place] [address] Dr. Hari Palmer Chloride [Moles/Vol] 104 mmol/L Normal 98-107 [facility] Comment on above: Performed By: #### M G, URIC, RENAL #### [facility] [address] [place] [address] Dr. Hari Palmer CO2 [Moles/Vol] 21.8 mmol/L Normal 21.0-32.0 [facility] Comment on above: Performed By: #### M G, URIC, RENAL #### [facility] [address] [place] [address] Dr. Hari Palmer Creatinine [Mass/Vol] 3.83 mg/dL Critically high 0.55-1.02 [facility] Comment on above: Performed By: #### M G, URIC, RENAL #### [facility] [address] [address] [address] Hari Palmer EGFR-AF MONEGASQUE 15 mL/min/1.73m2 Critically low >=60 [facility] Comment on above: Performed By: #### M G, URIC, RENAL #### [facility] [address] [place] [address] Dr. Hari Palmer EGFR-NON AF MONEGASQUE 13 mL/min/1.73m2 Critically low >=60 [facility] Comment on above: Performed By: #### M Edy, URIC, RENAL #### [facility] [address] [place] [address] Dr. Hari Palmer Glucose [Mass/Vol] 108 mg/dL Critically high 74-[address] [facility] Comment on above: Performed By: #### M Edy, URIC, RENAL #### [facility] [address] [place] [address] [address] Hari Palmer Phosphate [Mass/Vol] 5.4 mg/dL Critically high 2.6-4.7 [facility] Comment on above: Performed By: #### M Edy, URIC, RENAL #### [facility] [address] [place] [address] Dr. Hari Palmer Potassium [Moles/Vol] 3.9 mmol/L Normal 3.5-5.1 [facility] Comment on above: Performed By: #### M G, URIC, RENAL #### [facility] [address] [place] [address] [address] Hari Palmer Sodium [Moles/Vol] 137 mmol/L Normal 136-145 [facility] Comment on above: Performed By: #### M G, URIC, RENAL #### [facility] [address] [place] [address] [address] Hari Palmer Urea nitrogen [Mass/Vol] 47.0 mg/dL Critically high 7.0-18.0 [facility] Comment on above: Performed By: #### M G, URIC, RENAL #### [facility] [address] [place] [address] Dr. Hari Palmer URIC ACID SERUMon 07-29-2022 Urate [Mass/Vol] 6.3 mg/dL Critically high 2.6-6.0 [facility] Comment on above: Performed By: #### M G, URIC, RENAL #### [facility] [address] [place] [address] Dr. Hari Palmer URINE T PROTEIN CREAT RATIOo n 07-29-2022 Protein (U) [Mass/Vol] 29.7 mg/dL Critically high <=12.0 [facility] Comment on above: Performed By: #### M Edy, URIC, RENAL #### [facility] [address] [place] [address] Dr. Hari Palmer UR PROT CREAT RAT 0.56 Normal [facility] Comment on above: Performed By: #### M Edy, URIC, RENAL #### [facility] [address] [place] [address] Dr. Hari Palmer URINE CREAT 53.35 mg/dL Normal 20.00-300.00 [facility] Comment on above: Performed By: #### M Edy, URIC, RENAL #### [facility] [address] [place] [address] Dr. Hari Palmer VITAMIN D 25 OHon 07-29-2022 VIT D 25-OH 38.8 ng/mL Normal [facility] Comment on above: Performed By: #### M G, URIC, RENAL #### [facility] [address] [place] [address] Dr. Hari Palmer VIT D RANGES SEE BELOW Normal [facility] Comment on above: Result Comment: <20 ng/mL Vit D deficient 20 - <30 ng/mL Vit D insufficient 30 - 100 ng/mL Vit D sufficient >100 ng/mL Potential Toxicity Performed By: #### M G, URIC, RENAL #### [facility] [address] [place] [address] Dr. Hari Palmer Albumin [Mass/volume] in Ser um or PlasmaOrdered By: Stanley Forman on 06-20-2022 Albumin [Mass/Vol] 3.9 g/dL 3.2-5.5 [facility] Basophils Auto (Bld) [#/Vol] Ordered By: Stanley Forman on 06-20-2022 Basophils (Bld) [#/Vol] 0.1 10*3/uL 0.0-0.2 [facility] Basophils/100 WBC Auto (Bld) Ordered By: Stanley Forman on 06-20-2022 Basophils/100 WBC (Bld) 0.7 % . [facility] Blood hemoglobin measurement (mass/volume)Ordered By: Stanley Forman on 06-20-2022 Hemoglobin (Bld) [Mass/Vol] 10.8 g/dL 11.8-15.4 [facility] Blood leukocytes automated c ount (number/volume)Ordered By: Stanley Forman on 06-20-2022 WBC (Bld) [#/Vol] 11.8 10*3/uL 4.5-11.0 [facility] C reactive protein [Mass/vol ume] in Serum or PlasmaOrdered By: Stanley Forman on 06-20-2022 CRP [Mass/Vol] 5.2 mg/dL 0.0-1.0 [facility] Creatinine and Glomerular fi ltration rate.predicted panel (S/P/Bld)Ordered By: Stanley Forman on 06-20-2022 Creatinine [Mass/Vol] 4.49 mg/dL 0.44-1.03 [facility] Eosinophils Auto (Bld) [#/Vo l]Ordered By: Stanley Forman on 06-20-2022 Eosinophils (Bld) [#/Vol] 0.4 10*3/uL 0.0-0.45 [facility] Eosinophils/100 WBC Auto (Bl d)Ordered By: Stanley Forman on 06-20-2022 Eosinophils/100 WBC (Bld) 3.2 % . [facility] Erythrocyte distribution wid th Auto (RBC) [Ratio]Ordered By: Stanley Forman on 06-20-2022 Erythrocyte distribution width (RBC) [Ratio] 14.0 % 11.9-15.3 [facility] Erythrocyte sedimentation ra te by Photometric methodOrdered By: Stanley Forman on 06-20-2022 ESR Photometric method (Bld) [Velocity] 67 mm/hr 0-19 [facility] Estimated glomerular filtrat ion rate (GFR) non- AmericanOrdered By: Stanley Forman on 06-20-2022 GFR/1.73 sq M.predicted among non-blacks MDRD (S/P/Bld) [Vol rate/Area] 11 mL/Min [facility] Globulin Calc (S) [Mass/Vol] Ordered By: Stanley Forman on 06-20-2022 Globulin (S) [Mass/Vol] 3.5 g/dL [facility] Hematocrit Auto (Bld) [Volum e fraction]Ordered By: Stanley Forman on 06-20-2022 Hematocrit (Bld) [Volume fraction] 33.1 % 34.0-46.4 [facility] - Hematology and Cell countsOrdered By: Stanley Forman on 06-20-2022 Nucleated RBC/100 WBC (Bld) [Ratio] 0.0 % 0-0.5 [facility] Lymphocytes Auto (Bld) [#/Vo l]Ordered By: Stanley Forman on 06-20-2022 Lymphocytes (Bld) [#/Vol] 1.5 10*3/uL 1.00-4.8 [facility] Lymphocytes/100 WBC Auto (Bl d)Ordered By: Stanley Forman on 06-20-2022 Lymphocytes/100 WBC (Bld) 12.3 % . [facility] MCH Auto (RBC) [Entitic mass ]Ordered By: Stanley Forman on 06-20-2022 MCH (RBC) [Entitic mass] 31.1 pg 24.7-34.3 [facility] MCHC Auto (RBC) [Mass/Vol]Or dered By: Stanley Forman on 06-20-2022 MCHC (RBC) [Mass/Vol] 32.5 g/dL 32.0-35.0 [facility] MCV Auto (RBC) [Entitic vol] Ordered By: Stanley Forman on 06-20-2022 MCV (RBC) [Entitic vol] 95.6 fL 80-100 [facility] Monocytes Auto (Bld) [#/Vol] Ordered By: Stanley Forman on 06-20-2022 Monocytes (Bld) [#/Vol] 0.5 10*3/uL 0.0-0.8 [facility] Monocytes/100 WBC Auto (Bld) Ordered By: Stanley Forman on 06-20-2022 Monocytes/100 WBC (Bld) 4.1 % . [facility] Neutrophils Auto (Bld) [#/Vo l]Ordered By: Stanley Forman on 06-20-2022 Neutrophils (Bld) [#/Vol] 9.4 10*3/uL 1.8-7.7 [facility] Neutrophils/100 WBC Auto (Bl d)Ordered By: Stanley Forman on 06-20-2022 Neutrophils/100 WBC (Bld) 79.7 % . [facility] No Panel InformationOrdered By: Stanley Forman on 06-20-2022 Estimated GFR () 13 mL/Min [facility] Comment on above: GFR estimated refere nce range: According to KDOQI guidelines, <60 ml/min/1.73m2 is sufficient to diagnose a patient with chronic kidney disease. Pharmacy Creatinine Clearance (Chem 16.48 [facility] Platelet mean volume Auto (B ld) [Entitic vol]Ordered By: Stanley Forman on 06-20-2022 Platelet mean volume (Bld) [Entitic vol] 7.0 fL 6.3-10.7 [facility] Platelets Auto (Bld) [#/Vol] Ordered By: Stanley Forman on 06-20-2022 Platelets (Bld) [#/Vol] 287 10*3/uL 150-450 [facility] Protein [Mass/volume] in Ser um or PlasmaOrdered By: Stanley Forman on 06-20-2022 Protein [Mass/Vol] 7.4 g/dL 6.1-7.9 [facility] RBC Auto (Bld) [#/Vol]Ordere d By: Stanley Forman on 06-20-2022 RBC (Bld) [#/Vol] 3.46 10*6/uL 3.60-5.00 [facility] Serum or plasma alanine cesar otransferase measurement without P-5'-P (enzymatic activiOrdered By: Stanley Forman on 06-20-2022 ALT No additional P-5'-P [Catalytic activity/Vol] 11 U/L 10-60 [facility] Serum or plasma albumin/glob ulin mass ratioOrdered By: Stanley Forman on 06-20-2022 Albumin/Globulin [Mass ratio] 1.1 {ratio} [facility] Serum or plasma alkaline gina sphatase measurement (enzymatic activity/volume)Ordered By: Stanley Forman on 06-20-2022 ALP [Catalytic activity/Vol] 82 U/L 32-92 [facility] Serum or plasma anion gap de terminationOrdered By: Stanley Forman on 06-20-2022 Anion gap [Moles/Vol] 16.2 mmol/L 6.0-15.0 [facility] Serum or plasma aspartate am inotransferase measurement (enzymatic activity/volume)Ordered By: Stanley Forman on 06-20-2022 AST [Catalytic activity/Vol] 15 U/L 10-42 [facility] Serum or plasma calcium ge urement (mass/volume)Ordered By: Stanley Forman on 06-20-2022 Calcium [Mass/Vol] 9.3 mg/dL 8.2-10.2 [facility] Serum or plasma chloride lee surement (moles/volume)Ordered By: Stanley Forman on 06-20-2022 Chloride [Moles/Vol] 103 mmol/L 95-114 [facility] Serum or plasma glucose ge urement (mass/volume)Ordered By: Stanley Forman on 06-20-2022 Glucose [Mass/Vol] 75 mg/dL 70-100 [facility] Comment on above: ADA recommended refe rence rangeRandom Glucose Reference Range is dependent on time and content of last meal. Glucose of more than 200 mg/dL in a nonstressed, ambulatory subject supports the diagnosis of Diabetes Mellitus. Serum or plasma potassium me asurement (moles/volume)Ordered By: Stanley Forman on 06-20-2022 Potassium [Moles/Vol] 4.3 mmol/L 3.5-5.1 [facility] Serum or plasma sodium measu rement (moles/volume)Ordered By: Stanley Forman on 06-20-2022 Sodium [Moles/Vol] 135 mmol/L 136-146 [facility] Serum or plasma total biliru bin measurement (mass/volume)Ordered By: Stanley Forman on 06-20-2022 Bilirubin [Mass/Vol] 0.3 mg/dL 0.3-1.2 [facility] Serum or plasma total carbon dioxide measurement (moles/volume)Ordered By: Stanley Dickson on 06-20-2022 CO2 [Moles/Vol] 20.1 mmol/L 22.0-30.0 [facility] Serum or plasma urea nitroge n measurement (mass/volume)Ordered By: Stanley Forman on 06-20-2022 Urea nitrogen [Mass/Vol] 42 mg/dL 06-28 [facility] COVID-19 Positive/NegativeOr dered By: Jesus Parham on 06-14-2022 SARS-CoV-2 (COVID-19) N gene AMBERLY+probe Ql (Resp) Negative Negative [facility] Comment on above: Testing for SARS-CoV -2 by RT-PCR This test was developed and its performance characteristics determined by [employer] (qcue) and validated at the [facility]. This test has not been FDA [...] developed and its performance characteristics determined by [employer] ([employer]) and validated at the [facility]. This test has not been FDA [...] (CA) 125 10.8 U/mL Normal 0.0-38.[address] [facility] Comment on above: Result Comment: [employer] Electrochemiluminescence Immunoassay (ECLIA) . Values obtained with different assay methods or kits cannot be used interchangeably. Results cannot be interpreted as absolute evidence of the presence or absence of malignant disease. Performed By: #### M G, URIC, RENAL #### [facility] [address] [address] [address] Hari Palmer CEAon 06-08-2022 CEA 0.9 ng/mL Normal 0.0-4.7 [facility] Comment on above: Result Comment: Nons mokers <3.9 Smokers <5.6 . [employer] Electrochemiluminescence Immunoassay (ECLIA) . Values obtained with different assay methods or kits cannot be used interchangeably. Results cannot be interpreted as absolute evidence of the presence or absence of malignant disease. Performed By: #### C EA. #### [facility] [address] [address] [address] Hari Palmer Basophils Auto (Bld) [#/Vol] Ordered By: Jesus Parham on 06-05-2022 Basophils (Bld) [#/Vol] 0.0 10*3/uL 0.0-0.2 [facility] Basophils/100 WBC Auto (Bld) Ordered By: Jesus Parham on 06-05-2022 Basophils/100 WBC (Bld) 0.3 % . [facility] Blood hemoglobin measurement (mass/volume)Ordered By: Jesus Parham on 06-05-2022 Hemoglobin (Bld) [Mass/Vol] 12.0 g/dL 11.8-15.4 [facility] Blood leukocytes automated c ount (number/volume)Ordered By: Jesus Parham on 06-05-2022 WBC (Bld) [#/Vol] 8.5 10*3/uL 4.5-11.0 [facility] Creatinine and Glomerular fi ltration rate.predicted panel (S/P/Bld)Ordered By: Jesus Parham on 06-05-2022 Creatinine [Mass/Vol] 3.52 mg/dL 0.44-1.03 [facility] Eosinophils Auto (Bld) [#/Vo l]Ordered By: Jesus Parham on 06-05-2022 Eosinophils (Bld) [#/Vol] 0.2 10*3/uL 0.0-0.45 [facility] Eosinophils/100 WBC Auto (Bl d)Ordered By: Jesus Parham on 06-05-2022 Eosinophils/100 WBC (Bld) 2.7 % . [facility] Erythrocyte distribution wid th Auto (RBC) [Ratio]Ordered By: Jesus Parham on 06-05-2022 Erythrocyte distribution width (RBC) [Ratio] 14.2 % 11.9-15.3 [facility] Estimated glomerular filtrat ion rate (GFR) non- AmericanOrdered By: Jesus Parham on 06-05-2022 GFR/1.73 sq M.predicted among non-blacks MDRD (S/P/Bld) [Vol rate/Area] 14 mL/Min [facility] Hematocrit Auto (Bld) [Volum e fraction]Ordered By: Jesus Parham on 06-05-2022 Hematocrit (Bld) [Volume fraction] 35.8 % 34.0-46.4 [facility] Laboratory - Hematology and Cell countsOrdered By: Jesus Parham on 06-05-2022 Nucleated RBC/100 WBC (Bld) [Ratio] 0.1 % 0-0.5 [facility] Lymphocytes Auto (Bld) [#/Vo l]Ordered By: Jesus Parham on 06-05-2022 Lymphocytes (Bld) [#/Vol] 1.6 10*3/uL 1.00-4.8 [facility] Lymphocytes/100 WBC Auto (Bl d)Ordered By: Jesus Parham on 06-05-2022 Lymphocytes/100 WBC (Bld) 19.3 % . [facility] MCH Auto (RBC) [Entitic mass ]Ordered By: Jesus Parham on 06-05-2022 MCH (RBC) [Entitic mass] 31.5 pg 24.7-34.3 [facility] MCHC Auto (RBC) [Mass/Vol]Or dered By: Jesus Parham on 06-05-2022 MCHC (RBC) [Mass/Vol] 33.3 g/dL 32.0-35.0 [facility] MCV Auto (RBC) [Entitic vol] Ordered By: Jesus Parham on 06-05-2022 MCV (RBC) [Entitic vol] 94.4 fL 80-100 [facility] Monocytes Auto (Bld) [#/Vol] Ordered By: Jesus Parham on 06-05-2022 Monocytes (Bld) [#/Vol] 0.3 10*3/uL 0.0-0.8 [facility] Monocytes/100 WBC Auto (Bld) Ordered By: Jesus Parham on 06-05-2022 Monocytes/100 WBC (Bld) 3.9 % . [facility] Neutrophils Auto (Bld) [#/Vo l]Ordered By: Jesus Parham on 06-05-2022 Neutrophils (Bld) [#/Vol] 6.2 10*3/uL 1.8-7.7 [facility] Neutrophils/100 WBC Auto (Bl d)Ordered By: Jesus Parham on 06-05-2022 Neutrophils/100 WBC (Bld) 73.8 % . [facility] No Panel InformationOrdered By: Jesus Parham on 06-05-2022 Estimated GFR () 17 mL/Min [facility] Comment on above: GFR estimated refere nce range: According to KDOQI guidelines, <60 ml/min/1.73m2 is sufficient to diagnose a patient with chronic kidney disease. Pharmacy Creatinine Clearance (Chem N/A [facility] Platelet mean volume Auto (B ld) [Entitic vol]Ordered By: Jesus Parham on 06-05-2022 Platelet mean volume (Bld) [Entitic vol] 7.3 fL 6.3-10.7 [facility] Platelets Auto (Bld) [#/Vol] Ordered By: Jesus Parham on 06-05-2022 Platelets (Bld) [#/Vol] 312 10*3/uL 150-450 [facility] RBC Auto (Bld) [#/Vol]Ordere d By: Jesus Parham on 06-05-2022 RBC (Bld) [#/Vol] 3.80 10*6/uL 3.60-5.00 [facility] Serum or plasma anion gap de terminationOrdered By: Jesus Parham on 06-05-2022 Anion gap [Moles/Vol] 15.1 mmol/L 6.0-15.0 [facility] Serum or plasma calcium ge urement (mass/volume)Ordered By: Jesus Parham on 06-05-2022 Calcium [Mass/Vol] 9.5 mg/dL 8.2-10.2 [facility] Serum or plasma chloride lee surement (moles/volume)Ordered By: Jesus Parham on 06-05-2022 Chloride [Moles/Vol] 106 mmol/L 95-114 [facility] Serum or plasma glucose ge urement (mass/volume)Ordered By: Jesus Parham on 06-05-2022 Glucose [Mass/Vol] 91 mg/dL 70-100 [facility] Comment on above: ADA recommended refe [...] on 06-05-2022 Potassium [Moles/Vol] 4.4 mmol/L 3.5-5.1 [facility] Serum or plasma sodium measu rement (moles/volume)Ordered By: Jesus Parham on 06-05-2022 Sodium [Moles/Vol] 137 mmol/L 136-146 [facility] Serum or plasma total carbon dioxide measurement (moles/volume)Ordered By: Jesus Dione on 06-05-2022 CO2 [Moles/Vol] 20.3 mmol/L 22.0-30.0 [facility] Serum or plasma urea nitroge n measurement (mass/volume)Ordered By: Jesus Chungjaclyn on 06-05-2022 Urea nitrogen [Mass/Vol] 38 mg/dL 06-28 [facility] PTH INTACTon 04-29-2022 PTH, Intact 191 pg/mL Critically high 15-65 [facility] Comment on above: Performed By: #### M G URIC, RENAL #### [facility] [address] [address] [address] Hari Palmer VIT D 25-OH LABCORPon 2021 Vitamin D, 25-Hydroxy 33.6 ng/mL Normal 30.0-100.0 [facility] Comment on above: Result Comment: Ning min D deficiency has been defined by the [place] [employer] and an Endocrine Society practice guideline as a level of serum 25-OH vitamin D less than 20 ng/mL (1,2). The Endocrine Society went on to further define vitamin D insufficiency as a level between 21 and 29 ng/mL (2). 1. IOM ([place] [employer]). 2010. Dietary reference intakes for calcium and D. [place]: The National Academies Press. 2. Chantel MF, Landen [place], Eliseo STEPHENS, et al. Evaluation, treatment, and prevention of vitamin D deficiency: an Endocrine Society clinical practice guideline. JCEM. 2010; 96(7):1911-30. Performed By: #### M G, URIC, RENAL #### [facility] [id number] Hari Palmer ABO AND RH TYPEon 04-27-2022 ABO and Rh group Nom (Bld) ABO Rh Typing O Rh Positive Normal [facility] Comment on above: Performed By: #### M G, URIC, RENAL #### [facility] [address] [address] [address] Hari Palmer FERRITINon 04-27-2022 Ferritin [Mass/Vol] 273.0 ng/mL Critically high 6.2-137.0 [facility] Comment on above: Performed By: #### M G, URIC, RENAL #### [facility] [address] [place] [address] Dr. Hari Palmer HEMOGRAM AND PLATELon 2021 Hematocrit (Bld) [Volume fraction] 33.9 % Critically low 36.0-48.0 [facility] Comment on above: Performed By: #### M G, URIC, RENAL #### [facility] [address] [place] [address] Dr. Hari Palmer Hemoglobin (Bld) [Mass/Vol] 11.4 g/dL Critically low 12.0-16.0 [facility] Comment on above: Performed By: #### M G, URIC, RENAL #### [facility] [address] [place] [address] Dr. Hari Palmer MCH (RBC) [Entitic mass] 31.7 pg Normal 26.7-34.0 [facility] Comment on above: Performed By: #### M G, URIC, RENAL #### [facility] [address] [place] [address] Dr. Hari Palmer MCHC (RBC) [Mass/Vol] 33.6 g/dL Normal 29.9-35.2 [facility] Comment on above: Performed By: #### M G, URIC, RENAL #### [facility] [address] [place] [address] Dr. Hari Palmer MCV (RBC) [Entitic vol] 94.2 fL Normal 81.0-99.0 [facility] Comment on above: Performed By: #### M G, URIC, RENAL #### [facility] [address] [place] [address] Dr. Hari Palmer PLT 333 103/ul Normal 150-450 [facility] Comment on above: Performed By: #### M G, URIC, RENAL #### [facility] [address] [place] [address] Dr. Hari Palmer RBC 3.60 106/ul Critically low 4.20-5.40 [facility] Comment on above: Performed By: #### M G, URIC, RENAL #### [facility] [address] [place] [address] Dr. Hrai Palmer WBC 9.7 103/ul Normal 4.0-11.0 [facility] Comment on above: Performed By: #### M G, URIC, RENAL #### [facility] [address] [place] [address] Dr. Hari Palmer IRON AND TIBCon 04-27-2022 % SATURATION 20.1 % Normal [facility] Comment on above: Performed By: #### M G, URIC, RENAL #### [facility] [address] [place] [address] Dr. Hari Palmer Iron [Mass/Vol] 57.0 ug/dL Normal 50.0-170.0 [facility] Comment on above: Performed By: #### M G, URIC, RENAL #### [facility] [address] [place] [address] Dr. Hari Palmer TIBC DIRECT 283.0 ug/dL Normal 250.0-450.0 [facility] Comment on above: Performed By: #### M G, URIC, RENAL #### [facility] [address] [place] [address] Dr. Hari Palmer MAGNESIUMon 04-27-2022 Magnesium [Mass/Vol] 2.1 mg/dL Normal 1.8-2.4 [facility] Comment on above: Performed By: #### R ENAL, URIC, MG #### [facility] [address] [place] [address] Dr. Hari Palmer RENAL FUNCTION PANELon 04-27 Albumin [Mass/Vol] 3.6 g/dL Normal 3.4-5.0 [facility] Comment on above: Performed By: #### R ENAL, URIC, MG #### [facility] [address] [place] [address] Dr. Hari Palmer Calcium [Mass/Vol] 9.0 mg/dL Normal 8.5-10.1 [facility] Comment on above: Performed By: #### R ENAL, URIC, MG #### [facility] [address] [address] [address] Hari Palmer Chloride [Moles/Vol] 104 mmol/L Normal 98-107 [facility] Comment on above: Performed By: #### R ENAL, URIC, MG #### [facility] [address] [place] [address] Dr. Hari Palmer CO2 [Moles/Vol] 23.0 mmol/L Normal 21.0-32.0 [facility] Comment on above: Performed By: #### R ENAL, URIC, MG #### [facility] [address] [place] [address] Dr. Hari Palmer Creatinine [Mass/Vol] 3.38 mg/dL Critically high 0.55-1.02 [facility] Comment on above: Performed By: #### R ENAL, URIC, MG #### [facility] [address] [place] [address] Dr. Hari Palmer EGFR-AF MONEGASQUE 18 mL/min/1.73m2 Critically low >=60 [facility] Comment on above: Performed By: #### R ENAL, URIC, MG #### [facility] [address] [place] [address] Dr. Hari Palmer EGFR-NON AF MONEGASQUE 15 mL/min/1.73m2 Critically low >=60 [facility] Comment on above: Performed By: #### R ENAL, URIC, MG #### [facility] [address] [place] [address] Dr. Hari Palmer Glucose [Mass/Vol] 113 mg/dL Critically high 74-[address] [facility] Comment on above: Performed By: #### R ENAL, URIC, MG #### [facility] [address] [place] [address] Dr. Hari Palmer Phosphate [Mass/Vol] 4.4 mg/dL Normal 2.6-4.7 [facility] Comment on above: Performed By: #### R ENAL, URIC, MG #### [facility] [address] [place] [address] Dr. Hari Palmer Potassium [Moles/Vol] 4.0 mmol/L Normal 3.5-5.1 [facility] Comment on above: Performed By: #### R ENAL, URIC, MG #### [facility] [address] [address] [address] Hari Palmer Sodium [Moles/Vol] 137 mmol/L Normal 136-145 [facility] Comment on above: Performed By: #### R ENAL, URIC, MG #### [facility] [address] [address] [address] Hari Palmer Urea nitrogen [Mass/Vol] 44.0 mg/dL Critically high 7.0-18.0 [facility] Comment on above: Performed By: #### R ENAL, URIC, MG #### [facility] [address] [place] [address] Dr. Hari Palmer URIC ACID SERUMon 04-27-2022 Urate [Mass/Vol] 6.6 mg/dL Critically high 2.6-6.0 [facility] Comment on above: Performed By: #### R ENAL, URIC, MG #### [facility] [address] [address] [address] Hari Palmer URINE T PROTEIN CREAT RATIOo n 04-27-2022 Protein (U) [Mass/Vol] 31.4 mg/dL Critically high <=12.0 [facility] Comment on above: Performed By: #### M G, URIC, RENAL #### [facility] [address] [address] [address] Hari Palmer UR PROT CREAT RAT 0.55 Normal [facility] Comment on above: Performed By: #### M G, URIC, RENAL #### [facility] [address] [place] [address] Dr. Hari Palmer URINE CREAT 57.50 mg/dL Normal 20.00-300.00 [facility] Comment on above: Performed By: #### M G, URIC, RENAL #### [facility] [address] [address] [address] Hari Palmer ECHOCARDIO M/2D COMPLETEon 0 6-24-2022 ECHOCARDIO M/2D COMPLETE Patient: MANDEEP PURI Exam Date: 03/29/2022 : 1975 Gender:F Ordering : HAIDER FRENCH M.D. Admission #: [id number] Family : Order #: [id number] CLICK HERE TO VIEW EXAM ECHOCARDIOGRAM REPORT [...] Area(A4C): 17.00 cm2 Left Atrium Systolic Volume(A2C): 63783 mm3 Left Atrium Systolic Volume(A4C): 83228 mm3 Mitral Valve MV E to A Ratio: 0.80 Deceleration Haralson: 3210 mm/s2 Mitral Valve A-Wave Peak Velocity: [...] M.D. on 04/01/2022 at 12:33 Normal [facility] COVID-19 SOFIAOrdered By: Mary Beth Jones on 03-28-2022 SARS-CoV+SARS-CoV-2 (COVID-19) Ag IA.rapid Ql (Resp) Negative Negative [facility] Comment on above: This is a duplicate Ada SARS Antigen (GLORIA) result to be used for statistical tracking purpose only. No Panel InformationOrdered By: Shabbir Jones on 03-28-2022 SARS Antigen (LFIA) [facility] BLOOD TYPE AND RHon 02-13-20 22 ABO INTERPRETATION O Normal The [facility] Comment on above: Performed By: #### 3 1397, 40752, 45419, 81750, 97947 #### [facility] [address] [place] [address], [facility] RH INTERPRETATION Positive Normal [facility] Comment on above: Performed By: #### 3 1397, 74274, 14252, 40269, 90799 #### [facility] [address] BNP (B-TYPE NATRIURETIC PEPT JOEL)on 02-12-2022 Natriuretic peptide B (Bld) [Mass/Vol] 10 pg/mL Normal 0-100 The [facility] Comment on above: Result Comment: Give n the appropriate clinical setting a BNP result of >100 pg/mL indicates congestive heart failure. Performed By: #### 8 5123, 65405 #### [facility] [address] CBC W/DIFFon 02-12-2022 ABS IMM GRANS 0.2 10*3/uL Normal 0.0-0.2 The [facility] Comment on above: Performed By: #### 3 1397, 39936, 00451, 72023, 65608 #### [facility] [address] ABS NEUTROPHILS 7.8 10*3/uL High 1.6-7.6 The [facility] Comment on above: Performed By: #### 3 1397, 48039, 06374, 44661, 01216 #### [facility] [address] Basophils (Bld) [#/Vol] 0.1 10*3/uL Normal 0.0-0.2 The [facility] Comment on above: Performed By: #### 3 1397, 29398, 25417, 09600, 60051 #### [facility] [address] Basophils/100 WBC (Bld) 0.6 % Normal 0.0-1.0 T he [facility] Comment on above: Performed By: #### 3 1397, 48533, 28633, 56950, 24123 #### [facility] [address] [place] [address], [facility] Eosinophils (Bld) [#/Vol] 0.3 10*3/uL Normal 0.0-0.5 The [facility] Comment on above: Performed By: #### 3 1397, 46533, 38539, 79800, 04222 #### [facility] [address] [place] [address], [facility] Eosinophils/100 WBC (Bld) 2.5 % Normal 0.0-6.0 The [facility] Comment on above: Performed By: #### 3 1397, 59496, 29727, 71574, 04781 #### [facility] [address] Erythrocyte distribution width (RBC) [Ratio] 13.6 % Normal 11.5-15.0 The [facility] Comment on above: Performed By: #### 3 1397, 69385, 45097, 08859, 11370 #### [facility] [address] [facility] [address] Hematocrit (Bld) [Volume fraction] 34.5 % Low 36.0-45.0 The [facility] Comment on above: Performed By: #### 3 1397, 29958, 03413, 00027, 46884 #### [facility] [address] [facility] [facility] Hemoglobin (Bld) [Mass/Vol] 11.3 g/dL Low 12.0-15.0 The [facility] Comment on above: Performed By: #### 3 1397, 32989, 28876, 56491, 22569 #### [facility] [address] [facility] IMMATURE GRANS 1.4 % High 0.0-1.0 The [facility] Comment on above: Performed By: #### 3 1397, 94892, 02459, 25091, 13755 #### [facility] [address] [place] [address], [facility] Lymphocytes (Bld) [#/Vol] 2.0 10*3/uL Normal 1.2-4.0 The [facility] Comment on above: Performed By: #### 3 1397, 33086, 01213, 34760, 88714 #### [facility] [address] [place] [address], [facility] Lymphocytes/100 WBC (Bld) 18.6 % Low 20.0-45.0 The [facility] Comment on above: Performed By: #### 3 1397, 87644, 68893, 36333, 99488 #### [facility] [address] [place] [address], [facility] MCH (RBC) [Entitic mass] 31.3 pg Normal 27.0-33.0 The [facility] Comment on above: Performed By: #### 3 1397, 61730, 42795, 62908, 05596 #### [facility] [address] [facility] [place] [address], [facility] MCHC (RBC) [Mass/Vol] 32.8 g/dL Normal 32.0-35.0 The [facility] Comment on above: Performed By: #### 3 1397, 14489, 29524, 88797, 43628 #### [facility] [address] [place] [address], [facility] MCV (RBC) [Entitic vol] 95.6 fL Normal 82.0-98.0 T he [facility] Comment on above: Performed By: #### 3 1397, 08841, 28930, 20136, 83007 #### [facility] [address] [place] [address], [facility] Monocytes (Bld) [#/Vol] 0.5 10*3/uL Normal 0.1-1.0 The [facility] Comment on above: Performed By: #### 3 1397, 52309, 23374, 89628, 45090 #### [facility] [address] [place] [address], [facility] MONOS 4.9 % Low 5.0-12.0 The [facility] Comment on above: Performed By: #### 3 1397, 41950, 82759, 74908, 04219 #### [facility] [address] [facility] [address], [facility] Neutrophils/100 WBC (Bld) 72.0 % Normal 40.0-72.0 The [facility] Comment on above: Performed By: #### 3 1397, 04519, 44565, 49613, 88506 #### [facility] [address] [facility] [place] [address], [facility] Nucleated RBC/100 WBC (Bld) [Ratio] 0 % Normal 0-0 The [facility] Comment on above: Performed By: #### 3 1397, 45871, 45224, 29777, 22301 #### [facility] [facility] [address] [facility] [place] [address], [facility] PLAT CNT 315 10*3/uL Normal 150-400 The [facility] Comment on above: Performed By: #### 3 1397, 12109, 88925, 44671, 14583 #### [facility] [address] [facility] [place] [address], [facility] RBC (Bld) [#/Vol] 3.61 10*6/uL Low 3.80-5.00 The [facility] Comment on above: Performed By: #### 3 1397, 78677, 59102, 93459, 35635 #### [facility] [address] [facility] [place] [address], [facility] WBC (Bld) [#/Vol] 10.78 10*3/uL High 4.00-10.60 The [facility] Comment on above: Performed By: #### 3 1397, 63367, 65831, 94901, 26197 #### [facility] [address] [facility] [place] [address], [facility] CHEST AND LATERALon 02-13-20 CHEST AND LATERAL [facility] Department of Radiology [address] [place] [id number] == Patient Name: MANDEEP PURI : 1975 [...] pathology. Electronically signed: Royal Dominguez. Transcribed by: [email or web address], User Resident: Electronically Signed by: ROYAL DOMINGUEZ [...] TO CMV Performed By: #### 3 1397, 17574, 43371, 42493, 55595 #### [facility] [address] [place] [id number], [facility] COMP METABOLIC PANELon 02-12 Albumin [Mass/Vol] 4.5 g/dL Normal 3.5-5.7 The [facility] Comment on above: Performed By: #### 2 2505, 56429, 24666 #### [facility] [address] [place] [address], [facility] ALKALINE PHOSPH 89 IU/L Normal 34-104 The [facility] Comment on above: Performed By: #### 2 2505, 13679, 04462 #### [facility] [address] [place] [address], [place] ALT [Catalytic activity/Vol] 12 U/L Normal 7-52 The [facility] Comment on above: Performed By: #### 2 2505, 27500, 80939 #### [facility] [address] [place] [address], [facility] AST [Catalytic activity/Vol] 13 U/L Normal 13-39 The [facility] Comment on above: Performed By: #### 2 2505, 20572, 66487 #### [facility] [address] [place] [address], [place] Bilirubin [Mass/Vol] 0.3 mg/dL Normal 0.3-1.0 The [facility] Comment on above: Performed By: #### 2 2505, 90478, 33876 #### [facility] [address] [place] [address], [place] Calcium [Mass/Vol] 9.5 mg/dL Normal 8.6-10.3 The [facility] Comment on above: Performed By: #### 2 2505, 06994, 71058 #### [facility] [address] [place] [address], [place] Chloride [Moles/Vol] 103 mmol/L Normal 98-107 The [facility] Comment on above: Performed By: #### 2 2505, 59043, 78633 #### [facility] [address] [place] [address], [place] CO2 [Moles/Vol] 22 mmol/L Normal 21-31 The [facility] Comment on above: Performed By: #### 2 2505, 63197, 96701 #### [facility] [address] [place] [address], [place] Creatinine [Mass/Vol] 3.51 mg/dL High 0.60-1.20 The [facility] Comment on above: Performed By: #### 2 2505, 82139, 08161 #### [facility] [address] [place] [address], [place] eGFR- 17 ml/min/1.73sq m Abnormal >60 The [facility] Comment on above: Performed By: #### 2 2505, 82447, 53721 #### [facility] [address] [place] [address], [place] eGFR- non- 14 ml/min/1.73sq m Abnormal >60 The [facility] Comment on above: Performed By: #### 2 2505, 94860, 72889 #### [facility] [address] [place] [address], [place] Glucose [Mass/Vol] 100 mg/dL Normal 70-100 The [facility] Comment on above: Performed By: #### 2 2505, 21010, 98183 #### [facility] [address] [place] [address], [place] Potassium [Moles/Vol] 3.9 mmol/L Normal 3.5-5.1 The [facility] Comment on above: Performed By: #### 2 2505, 35175, 53878 #### [facility] [address] [place] [address], [facility] Protein [Mass/Vol] 8.0 g/dL Normal 6.0-8.3 The [facility] Comment on above: Performed By: #### 2 2505, 44558, 74279 #### [facility] [address] [place] [address], [facility] Sodium [Moles/Vol] 136 mmol/L Normal 136-145 The [facility] Comment on above: Performed By: #### 2 2505, 44740, 89220 #### [facility] [address] [place] [address], [facility] Urea nitrogen [Mass/Vol] 41 mg/dL High 7-25 The [facility] Comment on above: Performed By: #### 2 2505, 71036, 56694 #### [facility] [address] [facility] [place] [address], [facility] CREATININE URINE RANDOMon Creatinine (U) [Mass/Vol] 63.0 mg/dL Normal The [facility] Comment on above: Result Comment: Ther e are no established reference values for random urine specimens Performed By: #### 3 1397, 12478, 83545, 71068, 64047 #### [facility] [address] [facility] [place] [address], [facility] CT RENAL RECIPIENT ABDOMEN A ND PEVLIS WO CONTRASTon 02-12-2022 CT RENAL RECIPIENT ABDOMEN AND PEVLIS WO CONTRAST [facility] Department of Radiology [address] [place] [address] == Patient Name: MANDEEP PURI : 1975 Sex: F Age: Race: White Pt. Location: 20 Patient Status: O Ordered Date: 02/12/2022 1:55:00 PM Completed Date: 02/12/2022 02:04 PM Requesting Provider: HAIDER FRENCH Attending Provider: HAIDER FRENCH Report Copy To: Signs & Symptoms: Z01.818 Encounter for other preprocedural examination I10 History: Bahvana Comments: , Pre-kidney transplant work-up. Please evaluate [...] achievable. Electronically signed: NAN SARAVIA. Transcribed by: [email or web address], User Resident: Electronically Signed by: NAN SARAVIA [...] Comment on above: Performed By: #### 2 5705, 47670, 62648 #### [facility] [address] BRETT LAGUERRE VIRUS ABon 05-1 EB VCA IGG 2.35 Normal The The [...] TO EBV Performed By: #### 3 1397, 63727, 99967, 80019, 66805 #### [facility] [address] EB VCA IGM 0.00 Normal The [...] IgM AB Performed By: #### 3 1397, 85866, 94014, 91680, 73657 #### [facility] [address] HEMOGLOBIN A1Con 02-12-2022 Glucose [Moles/Vol] 120 mmol/L Normal The [facility] Comment on above: Performed By: #### 8 5123, 17591 #### [facility] [address] HbA1c (Bld) [Mass fraction] 5.8 % Normal 4.0-6.0 The [facility] Comment on above: Performed By: #### 8 5123, 82899 #### [facility] [address] HEPATITIS A ANTIBODY IGMon 0 02-12-2022 HEP A AB IGM Non-Reactive Normal NONREACTIVE The [facility] Comment on above: Performed By: #### 3 1397, 22943, 93972, 05203, 93976 #### [facility] [address] HEPATITIS B CORE ANTIBODYon 02-12-2022 HEP B CORE AB Non-Reactive Normal NONREACTIVE The [facility] Comment on above: Performed By: #### 3 1397, 06628, 09899, 20795, 63456 #### [facility] [address] [place] [address], [facility] HEPATITIS B SURFACE ANTIBODY QUANTon 02-12-2022 HEP B SURF AB 1.14 mIU/ml Normal The [facility] Comment on above: Result Comment: INTE RPRETATION: NONREACTIVE<8.00 mIU/mL INDETERMINATE8.00 - 12.00 mIU/mL REACTIVE>12 mIU/mL Performed By: #### 3 1397, 38471, 81006, 73611, 02993 #### [facility] [address] HEPATITIS B SURFACE ANTIGEN QUALon 02-12-2022 HEP B SURF AG QUAL Non-Reactive Normal NONREACTIVE The [facility] Comment on above: Performed By: #### 3 1397, 16669, 77790, 18315, 77940 #### [facility] [address] [facility] [address] HEPATITIS C ANTIBODYon 02-12 ANTI-HCV Non-Reactive Normal NONREACTIVE The [facility] Comment on above: Performed By: #### 3 1397, 46053, 61465, 35175, 42236 #### [facility] [address] [facility] HIV1 AND 2 COMBO 4Gon 2021 HIV COMBO Negative Normal NEGATIVE The [facility] Comment on above: Performed By: #### 3 1397, 93332, 40647, 25246, 22555 #### [facility] [address] [facility]. [address] HLA ABC CLASS I TYPINGon A*-1 [...] to frequency. Performed By: #### 3 1397, 61040, 61199, 43598, 11977 #### [facility] [address] [place] [address], [facility] A*-2 EQUIVALENT 2 Normal The [facility] [...] to frequency. Performed By: #### 3 1397, 77545, 28757, 66698, 43955 #### [facility] [address] [facility] [place] [address], [place] B*-1 EQUIVALENT 35 Normal The The [facility] [...] frequency. Performed By: #### 3 1397, 87822, 15728, 10826, 13980 #### [facility] [address] [place] [address], [place] B*-2 EQUIVALENT 37 Normal The The [facility] [...] to frequency. Performed By: #### 3 1397, 11503, 06391, 79696, 37307 #### [facility] [address] [place] [address], [facility] Bw*-1 EQUIVALENT 4 Normal The [facility] [...] to frequency. Performed By: #### 3 1397, 90658, 06766, 64432, 23977 #### [facility] [address] [facility] [place] [address], [facility] Bw*-2 EQUIVALENT 6 Normal The The Surgical [...] to frequency. Performed By: #### 3 1397, 38770, 76415, 62220, 25064 #### [facility] [address] [place] [address], [place] C*-1 EQUIVALENT 4 Normal The The [...] to frequency. Performed By: #### 3 1397, 86996, 02332, 85120, 28019 #### [facility] [address] C*-2 EQUIVALENT 6 Normal The [facility] [...] to frequency. Performed By: #### 3 1397, 60778, 05124, 47822, 37966 #### [facility] [address] [facility]. [address] METHOD Class I Typing by PCR-SSOP [...] to frequency. Performed By: #### 3 1397, 64633, 67473, 00850, 53363 #### [facility] [address] [facility] [place] [address], [facility] SIGNED BY Normal The [facility] [...] to frequency. Result Comment: Sree Noriega, MS,CHT(DONA),MT(ASCP) [employer], Transplant Immunology Performed By: #### 3 1397, 06476, 94739, 01462, 57322 #### [facility] [address] [place] [address], [facility] HLA DR CLASS II TYPINGon DPB1*-1 EQUIVALENT [...] to frequency. Performed By: #### 3 1397, 17113, 81878, 25198, 11931 #### [facility] [address] [facility] [address], [place] DPB1*-2 EQUIVALENT 04:02 Normal The The [facility] [...] to frequency. Performed By: #### 3 1397, 30880, 44550, 50117, 08464 #### [facility] [address] [place] [address], [place] DQA1*-1 EQUIVALENT 01 Normal The The [facility] [...] to frequency. Performed By: #### 3 1397, 37301, 29997, 75112, 73340 #### [facility] [address] [place] [address], [place] DQA1*-2 EQUIVALENT 05 Normal The The [...] to frequency. Performed By: #### 3 1397, 59286, 13135, 97514, 58529 #### [facility] [address] [place] [address], [place] DQB1*-1 EQUIVALENT 7 Normal The The [...] to frequency. Performed By: #### 3 1397, 34280, 72969, 65538, 33957 #### [facility] [address] [place] [address], [place] DQB1*-2 EQUIVALENT 5 Normal The The [...] to frequency. Performed By: #### 3 1397, 33010, 90804, 18126, 61343 #### [facility] [address] [facility] [place] [address], [facility] DRB1*-1 EQUIVALENT 10 Normal The The Surgical [...] to frequency. Performed By: #### 3 1397, 82229, 08128, 68116, 63849 #### [facility] [address] [facility] [place] [address], [facility] DRB1*-2 EQUIVALENT 11 Normal The The Surgical [...] to frequency. Performed By: #### 3 1397, 76684, 26160, 36067, 86456 #### [facility] [address] [facility] [place] [address], [facility] DRB3*-1 EQUIVALENT 52 Normal The The Surgical [...] to frequency. Performed By: #### 3 1397, 11633, 17469, 34989, 87887 #### [facility] [address] [facility]. [address] METHOD Class II Typing by PCR-SSOP [...] to frequency. Performed By: #### 3 1397, 73808, 47341, 82265, 95332 #### [facility] [address] [facility]. [address] LIPID PROFILEon 02-12-2022 Cholesterol [Mass/Vol] 221 mg/dL High 120-200 Th e [facility] Comment on above: Result Comment: CHOL ESTEROL REFERENCE RANGE: 20 YEARS AND OLDER CARDIOVASCULAR RISK Less than 200 mg/dl Low Risk 200 to 239 mg/dl Borderline Risk 240 mg/dl and greater High Risk Performed By: #### 3 1397, 00879, 71319, 30052, 20566 #### [facility] [address] [facility]. [address] Cholesterol in HDL [Mass/Vol] 40 mg/dL Normal 23-92 The [facility] Comment on above: Result Comment: Slig ht variation in normal range could be due to gender and/or age. HDL CHOLESTEROL REFERENCE RANGE: 20 years and older Cardiovascular Risk > or =60 mg/dL Desirable 40 TO 59 mg/dL Low Risk <40 mg/dL High Risk Performed By: #### 3 1397, 85478, 47248, 16312, 16662 #### [facility] [address] [facility] [place] [address], [facility] Cholesterol in LDL [Mass/Vol] 101 mg/dL Normal 0-130 The [facility] Comment on above: Result Comment: LDL IS A CALCULATION LDL IS ONLY VALID IF THE TRIG IS LESS THAN 400. Performed By: #### 3 1397, 60013, 03005, 42242, 26020 #### [facility] [address] [place] [address], [facility] Cholesterol.total/Patt sterol in HDL [Mass ratio] 5.5 {ratio} High .0-4.5 The [facility] Comment on above: Performed By: #### 3 1397, 82955, 29700, 04193, 08861 #### [facility] [address] [place] [address], [facility] NON-HDL CHOLESTEROL 181 mg/dL Normal The [facility] Comment on above: Performed By: #### 3 1397, 66354, 33268, 91539, 20139 #### [facility] [address] [facility] [address] Triglyceride [Mass/Vol] 402 mg/dL High 40-149 T he [facility] Comment on above: Result Comment: TRIG LYCERIDE REFERENCE RANGE: 20 YEARS AND OLDER CARDIOVASCULAR RISK LESS THAN 150 mg/dl LOW RISK 150 TO 199 mg/dl BORDERLINE RISK 200 mg/dl AND GREATER HIGH RISK Performed By: #### 3 1397, 52863, 90003, 81205, 30017 #### [facility] [address] [place] [address], [facility] VLDL CHOL 80 mg/dL High 0-40 The [facility] Comment on above: Performed By: #### 3 1397, 38432, 79592, 32140, 63741 #### [facility] [address] [place] [address], [facility] MUMPS IGG BLDon 02-12-2022 MUMPS IGG 5.46 Normal The [facility] Comment on above: Result Comment: NORM AL RANGES: < OR = 0.9O NEGATIVE ; NO DETECTABLE IgG ANTIBODY TO MUMPS 0.91 - 1.09 EQUIVOCAL; REPEAT TESTING SUGGESTED > OR = 1.10 POSITIVE ; INDICATES PRESENCE OF DETECTABLE IgG ANTIBODY TO MUMPS Performed By: #### 3 1397, 03221, 17730, 34777, 78430 #### [facility] [address] RUBELLAon 02-12-2022 RUBELLA 4.79 Normal The [facility] Comment on above: Result Comment: NORM AL RANGES: < OR = 0.9O NEGATIVE ; NO DETECTABLE IgG ANTIBODY TO RUBELLA 0.91 - 1.09 EQUIVOCAL; REPEAT TESTING SUGGESTED > OR = 1.10 POSITIVE ; INDICATES PRESENCE OF DETECTABLE IgG ANTIBODY TO RUBELLA VIRUS Performed By: #### 3 1397, 79298, 30945, 23372, 74820 #### [facility] [address] RUBEOLA MEASLES IGGon 2021 RUBEO IGG 6.43 Normal The [facility] Comment on above: Result Comment: NORM AL RANGES: < OR = 0.9O NEGATIVE ; NO DETECTABLE IgG ANTIBODY TO RUBEOLA 0.91 - 1.09 EQUIVOCAL; REPEAT TESTING SUGGESTED > OR = 1.10 POSITIVE ; INDICATES PRESENCE OF DETECTABLE IgG ANTIBODY TO RUBEOLA Performed By: #### 3 1397, 50751, 79776, 53601, 47506 #### [facility] [address] SINGLE ANTIGEN CLASS 1on METHOD Class [...] to frequency. Performed By: #### 3 1397, 06040, 81081, 81643, 73088 #### [facility] [address] [place] [address], [facility] SINGLE ANTIGEN CLASS 2on COMMENTS Normal The [...] watch list. Performed By: #### 3 1397, 77255, 85435, 26910, 74383 #### [facility] [address] [place] [address], [facility] Result Comment: Clas s [...] to frequency. Performed By: #### 3 1397, 14593, 15157, 21005, 09925 #### [facility] [address] [place] [address], [facility] METHOD Class II Single [...] to frequency. Performed By: #### 3 1397, 29201, 05153, 91929, 11269 #### [facility] [address] [place] [address], [facility] T PROT UR Yesy 02-12-2022 U TOTAL PROTEIN 44.0 mg/dL Normal The [facility] Comment on above: Result Comment: Ther e are no established reference values for random urine specimens Performed By: #### 3 1397, 46237, 08606, 94210, 66706 #### [facility] [address] [place] [address], [facility] TB QUANTIFERON PLUSon 2021 MITOGEN MINUS NIL >10.00 Normal The [facility] Comment on above: Performed By: #### 3 1592 #### [facility] [address] [facility] [place] [address], [facility] NIL 0.03 IU/mL Normal The [facility] Comment on above: Performed By: #### 3 1592 #### [facility] [address] [facility] [place] [address], [facility] TB QUANTIFERON Negative Normal NEGATIVE The [facility] Comment on above: Result Comment: Jadiel tiferon TB Gold Interpretation (IU/mL): NEGATIVE: M. tuberculosis infection not likely. Nil: <=8.0 TB1 Antigen minus Nil ([id number]-ZDW): <0.35 OR >=0.35; and <25% of Nil value. TB2 Antigen minus Nil (VD7ES-IWE): <0.35 OR >=0.35; and <25% of Nil [...] By: #### 3 1592 #### [facility] [address] [place] [address], [place] TB1 AG 0.05 IU/mL Normal The [facility] Comment on above: Performed By: #### 3 1592 #### [facility] [address] [place] [address], [place] TB1 AG MINUS NIL 0.02 IU/mL Normal The [facility] Comment on above: Performed By: #### 3 1592 #### [facility] [address] [place] [address], [place] TB2 AG 0.05 IU/mL Normal The [facility] Comment on above: Performed By: #### 3 1592 #### [facility] [address] [place] [address], [place] TB2 AG MINUS NIL 0.02 IU/mL Normal The [facility] Comment on above: Performed By: #### 3 1592 #### [facility] [address] [place] [address], [place] UA,MICROSCOPIC REQUIREDon Appearance (U) SL CLOUDY Abnormal CLEAR The [facility] Comment on above: Performed By: #### 3 1397, 50809, 48547, 69985, 93570 #### [facility] [address] [place] [address], [place] Bilirubin Ql (U) Negative Normal NEGATIVE The [facility] Comment on above: Performed By: #### 3 1397, 46145, 49387, 38854, 16663 #### [facility] [address] [place] [address], [place] Color (U) STRAW Abnormal YELLOW The [facility] Comment on above: Performed By: #### 3 1397, 18973, 95508, 95675, 92597 #### [facility] [address] [place] [address], [place] EPIS MANY Abnormal FEW,OCC,NONE SEEN The [facility] Comment on above: Performed By: #### 3 1397, 05907, 03728, 66505, 49128 #### [facility] [address] [place] [address], [facility] Glucose Ql (U) 50 mg/dL Abnormal NEGATIVE The [facility] Comment on above: Performed By: #### 3 1397, 61268, 47854, 10706, 03859 #### [facility] [address] [place] [address], [facility] Hemoglobin Ql (U) Negative Normal NEGATIVE The [facility] Comment on above: Performed By: #### 3 1397, 79841, 04877, 54965, 37389 #### [facility] [address] [facility] [place] [address], [facility] KETONE Negative Normal NEGATIVE The [facility] Comment on above: Performed By: #### 3 1397, 10423, 05031, 58188, 49004 #### [facility] [address] [facility] [place] [address], [facility] LEUK MARYAN MODERATE Abnormal NEGATIVE The [facility] Comment on above: Performed By: #### 3 1397, 92077, 29053, 86563, 86171 #### [facility] [address] [facility] [place] [address], [facility] Nitrite Ql (U) Negative Normal NEGATIVE The [facility] Comment on above: Performed By: #### 3 1397, 38498, 08776, 71260, 68806 #### [facility] [address] [place] [address], [facility] pH (U) 7.0 [pH] Normal 5.0-8.0 The [facility] Comment on above: Performed By: #### 3 1397, 26848, 14788, 45712, 27344 #### [facility] [address] [place] [address], [facility] Protein Ql (U) 30 mg/dL Abnormal NEGATIVE The [facility] Comment on above: Performed By: #### 3 1397, 09872, [id number], 78720, [id number] #### [facility] [address] [facility] [place] [address], [facility] RBC NONE SEEN Normal NONE SEEN The [facility] Comment on above: Performed By: #### 3 1397, 31949, 87918, 50578, 43741 #### [facility] [address] [facility]. [address] SPEC GRAV 1.009 Low 1.015-1.020 The [facility] Comment on above: Performed By: #### 3 1397, 76690, 23277, 06231, 38733 #### [facility] [address] WBC UA 11-20 Abnormal NONE SEEN The [facility] Comment on above: Performed By: #### 3 1397, 41167, 81417, 74081, 22853 #### [facility] [address] VARICELLA ZOSTER IGGon 02-12 VARICELLA IGG 3.29 Normal The [facility] Comment on above: Result Comment: NORM AL RANGES: < OR = 0.9O NEGATIVE ; NO DETECTABLE IgG ANTIBODY TO VARICELLA-ZOSTER VIRUS 0.91 - 1.09 EQUIVOCAL; REPEAT TESTING SUGGESTED > OR = 1.10 POSITIVE ; INDICATES PRESENCE OF DETECTABLE IgG ANTIBODY TO VARICELLA-ZOSTER VIRUS Performed By: #### 3 1397, 75869, 73439, 52842, 76764 #### [facility] [address] PTH INTACTon 12-04-2021 PTH, Intact 165 pg/mL Critically high 15-65 [facility] Comment on above: Performed By: #### M G, URIC, RENAL #### [facility] [address] [address] [address] Hari Palmer FERRITINon 12-03-2021 Ferritin [Mass/Vol] 256.0 ng/mL Critically high 6.2-137.0 [facility] Comment on above: Performed By: #### M G, URIC, RENAL #### [facility] [address] [place] [address] Dr. Hari Palmer HEMOGRAM AND PLATELon 2021 Hematocrit (Bld) [Volume fraction] 33.7 % Critically low 36.0-48.0 [facility] Comment on above: Performed By: #### M G, URIC, RENAL #### [facility] [address] [place] [address] Dr. Hari Palmer Hemoglobin (Bld) [Mass/Vol] 10.9 g/dL Critically low 12.0-16.0 [facility] Comment on above: Performed By: #### M G, URIC, RENAL #### [facility] [address] [place] [address] Dr. Hari Palmer MCH (RBC) [Entitic mass] 31.4 pg Normal 26.7-34.0 [facility] Comment on above: Performed By: #### M G, URIC, RENAL #### [facility] [address] [place] [address] Dr. Hari Palmer MCHC (RBC) [Mass/Vol] 32.3 g/dL Normal 29.9-35.2 [facility] Comment on above: Performed By: #### M G, URIC, RENAL #### [facility] [address] [place] [address] Dr. Hari Palmer MCV (RBC) [Entitic vol] 97.1 fL Normal 81.0-99.0 [facility] Comment on above: Performed By: #### M G, URIC, RENAL #### [facility] [address] [place] [address] Dr. Hari Palmer PLT 314 103/ul Normal 150-450 [facility] Comment on above: Performed By: #### M G, URIC, RENAL #### [facility] [address] [place] [address] Dr. Hari Palmer RBC 3.47 106/ul Critically low 4.20-5.40 [facility] Comment on above: Performed By: #### M G, URIC, RENAL #### [facility] [address] [address] [address] Hari Palmer WBC 9.4 103/ul Normal 4.0-11.0 [facility] Comment on above: Performed By: #### M G, URIC, RENAL #### [facility] [address] [place] [address] Dr. Hari Palmer IRON AND TIBCon 12-03-2021 % SATURATION 19.0 % Normal [facility] Comment on above: Performed By: #### M G, URIC, RENAL #### [facility] [address] [place] [address] Dr. Hari Palmer Iron [Mass/Vol] 52.0 ug/dL Normal 37.0-170.0 [facility] Comment on above: Performed By: #### M G, URIC, RENAL #### [facility] [address] [place] [address] Dr. Hari Palmer TIBC DIRECT 273.0 ug/dL Normal 261.0-497.0 [facility] Comment on above: Performed By: #### M G, URIC, RENAL #### [facility] [address] [place] [address] Dr. Hari Palmer MAGNESIUMon 12-03-2021 Magnesium [Mass/Vol] 2.1 mg/dL Normal 1.6-2.3 [facility] Comment on above: Performed By: #### M G, URIC, RENAL #### [facility] [address] [place] [address] Dr. Hari Palmer RENAL FUNCTION PANELon 12-03 Albumin [Mass/Vol] 3.6 g/dL Normal 3.5-5.0 [facility] Comment on above: Performed By: #### M G, URIC, RENAL #### [facility] [address] [place] [address] Dr. Hari Palmer Calcium [Mass/Vol] 8.4 mg/dL Normal 8.4-10.2 [facility] Comment on above: Performed By: #### M G, URIC, RENAL #### [facility] [address] [place] [address] Dr. Hari Palmer Chloride [Moles/Vol] 101 mmol/L Normal 98-107 [facility] Comment on above: Performed By: #### M G, URIC, RENAL #### [facility] [address] [place] [address] Dr. Hari Palmer CO2 [Moles/Vol] 24.3 mmol/L Normal 22.0-30.0 [facility] Comment on above: Performed By: #### M G, URIC, RENAL #### [facility] [address] [place] [address] Dr. Hari Palmer Creatinine [Mass/Vol] 3.32 mg/dL Critically high 0.52-1.04 [facility] Comment on above: Performed By: #### M G, URIC, RENAL #### [facility] [address] [place] [address] Dr. Hari Palmer EGFR-AF MONEGASQUE 18 mL/min/1.73m2 Critically low >=60 [facility] Comment on above: Performed By: #### M G, URIC, RENAL #### [facility] [address] [place] [address] Dr. Hari Palmer EGFR-NON AF MONEGASQUE 15 mL/min/1.73m2 Critically low >=60 [facility] Comment on above: Performed By: #### M G, URIC, RENAL #### [facility] [address] [place] [address] Dr. Hari Palmer Glucose [Mass/Vol] 119 mg/dL Critically high 74-[address] [facility] Comment on above: Performed By: #### M G, URIC, RENAL #### [facility] [address] [place] [address] Dr. Hari Palmer Phosphate [Mass/Vol] 4.7 mg/dL Critically high 2.5-4.5 [facility] Comment on above: Performed By: #### M G, URIC, RENAL #### [facility] [address] [place] [address] Dr. Hari Palmer Potassium [Moles/Vol] 4.0 mmol/L Normal 3.4-5.0 [facility] Comment on above: Performed By: #### M G, URIC, RENAL #### [facility] [address] [place] [address] Dr. Hari Palmer Sodium [Moles/Vol] 135 mmol/L Critically low 137-145 Th [facility] Comment on above: Performed By: #### M G, URIC, RENAL #### [facility] [address] [place] [address] Dr. Hari Palmer Urea nitrogen [Mass/Vol] 42.0 mg/dL Critically high 7.0-17.0 [facility] Comment on above: Performed By: #### M G, URIC, RENAL #### [facility] [address] [place] [address] Dr. Hari Palmer UA RANDOM W/MICROSCOPICon BACTERIA TRACE Abnormal NONE SEEN [facility] Comment on above: Performed By: #### U AMIC #### [facility] [address] [place] [address] Dr. Hari Palmer Bilirubin Ql (U) Negative Normal NEGATIVE [facility] Comment on above: Performed By: #### U AMIC #### [facility] [address] [place] [address] Dr. Hari Palmer CAST NONE SEEN Normal NONE SEEN [facility] Comment on above: Performed By: #### U AMIC #### [facility] [address] [place] [address] Dr. Hari Palmer Clarity (U) CLEAR Normal CLEAR [facility] Comment on above: Performed By: #### U AMIC #### [facility] [address] [place] [address] Dr. Hari Palmer Color (U) LT. YELLOW Normal YELLOW [facility] Comment on above: Performed By: #### U AMIC #### [facility] [address] [place] [address] Dr. Hari Palmer Crystals LM Nom (Urine sed) NONE SEEN Normal NONE SEEN [facility] Comment on above: Performed By: #### U AMIC #### [facility] [address] [place] [address] Dr. Hari Palmer Epithelial cells LM Ql (Urine sed) FEW Abnormal NONE SEEN /RARE [facility] Comment on above: Performed By: #### U AMIC #### [facility] [address] [address] [address] Hari Palmer Glucose Ql (U) 100 mg/dl Abnormal NEGATIVE [facility] Comment on above: Performed By: #### U AMIC #### [facility] [address] [address] [address] Hari Palmer Hemoglobin Ql (U) TRACE-INTACT Abnormal NEGATIVE [facility] Comment on above: Performed By: #### U AMIC #### [facility] [address] [address] [address] Hari Palmer Ketones Ql (U) Negative Normal NEGATIVE [facility] Comment on above: Performed By: #### U AMIC #### [facility] [address] [place] [address] Dr. Hari Palmer LEUKOCYTES SMALL Abnormal NEGATIVE [facility] Comment on above: Performed By: #### U AMIC #### [facility] [address] [address] [address] Hari Palmer MUCOUS NONE SEEN Normal NONE SEEN [facility] Comment on above: Performed By: #### U AMIC #### [facility] [address] [address] [address] Hari Palmer Nitrite Ql (U) Negative Normal NEGATIVE [facility] Comment on above: Performed By: #### U AMIC #### [facility] [address] [place] [address] Dr. Hari Palmer pH (U) 6.0 [pH] Normal 5-9 [facility] Comment on above: Performed By: #### U AMIC #### [facility] [address] [place] [address] Dr. Hari Palmer RBC 0-2 Normal 0-2 [facility] Comment on above: Performed By: #### U AMIC #### [facility] [address] [place] [address] Dr. Hari Palmer SPEC GRAVITY 1.010 Normal 1.005-<=1.02 5 [facility] Comment on above: Performed By: #### U AMIC #### [facility] [address] [address] [address] Hari Palmer UA PROTEIN Negative Normal NEGATIVE/ TRACE [facility] Comment on above: Performed By: #### U AMIC #### [facility] [address] [address] [address] Hari Palmer Urobilinogen Qn (U) 0.2 {Janice'U}/dL Normal 0.2 - 1. 0 [facility] Comment on above: Performed By: #### U AMIC #### [facility] [address] [place] [address] Dr. Hari Palmer WBC 5-10 Abnormal NONE SEEN [facility] Comment on above: Performed By: #### U AMIC #### [facility] [address] [place] [address] Dr. Hari Palmer URIC ACID SERUMon 12-03-2021 Urate [Mass/Vol] 4.6 mg/dL Normal 2.5-6.2 [facility] Comment on above: Performed By: #### M G, URIC, RENAL #### [facility] [address] [place] [address] Dr. Hari Palmer URINE T PROTEIN CREAT RATIOo n 12-03-2021 Protein (U) [Mass/Vol] 31.7 mg/dL Critically high <=12.0 [facility] Comment on above: Performed By: #### M G, URIC, RENAL #### [facility] [address] [place] [address] Dr. Hari Palmer UR PROT CREAT RAT 0.54 Normal [facility] Comment on above: Performed By: #### M G, URIC, RENAL #### [facility] [address] [place] [address] Dr. Hari Palmer URINE CREAT 59.03 mg/dL Normal 20.00-300.00 [facility] Comment on above: Performed By: #### M G, URIC, RENAL #### [facility] [address] [place] [address] Dr. Hari Palmer VITAMIN D 25 OHon 12-03-2021 VIT D 25-OH 38.1 ng/mL Normal [facility] Comment on above: Performed By: #### M G, URIC, RENAL #### [facility] [address] [place] [address] Dr. Hari Palmer VIT D RANGES SEE BELOW Normal [facility] Comment on above: Result Comment: <20 ng/mL Vit D deficient 20 - <30 ng/mL Vit D insufficient 30 - 100 ng/mL Vit D sufficient >100 ng/mL Potential Toxicity Performed By: #### M G, URIC, RENAL #### [facility] [address] [place] [address] Dr. Hari Palmer PTH INTACTon 09-03-2021 PTH, Intact 177 pg/mL Critically high 15-65 [facility] Comment on above: Performed By: #### P THINT #### [facility] [address] [place] [address] Dr. Hari Palmer CBC AUTO DIFFon 09-01-2021 BASO # 0.1 103/ul Normal 0.0-0.1 [facility] Comment on above: Performed By: #### M G, URIC, RENAL #### [facility] [address] [place] [address] Dr. Hari Palmer Basophils/100 WBC (Bld) 0.6 % Normal 0.2-2.0 [facility] Comment on above: Performed By: #### M G, URIC, RENAL #### [facility] [address] [place] [address] Dr. Hari Palmer EO # 0.3 103/ul Normal 0.0-0.7 [facility] Comment on above: Performed By: #### M G, URIC, RENAL #### [facility] [address] [place] [address] Dr. Hari Palmer Eosinophils/100 WBC (Bld) 3.5 % Normal 0.9-7.0 [facility] Comment on above: Performed By: #### M G, URIC, RENAL #### [facility] [address] [place] [address] Dr. Hari Palmer Erythrocyte distribution width (RBC) [Ratio] 13.8 % Normal 11.0-15.0 [facility] Comment on above: Performed By: #### M G, URIC, RENAL #### [facility] [address] [place] [address] Dr. Hari Palmer Hematocrit (Bld) [Volume fraction] 32.8 % Critically low 36.0-48.0 [facility] Comment on above: Performed By: #### M G, URIC, RENAL #### [facility] [address] [place] [address] Dr. Hari Palmer Hemoglobin (Bld) [Mass/Vol] 10.6 g/dL Critically low 12.0-16.0 [facility] Comment on above: Performed By: #### M G, URIC, RENAL #### [facility] [address] [place] [address] Dr. Hari Palmer IG # 0.14 10e3/ul Critically high 0.00-0.03 [facility] Comment on above: Performed By: #### M G, URIC, RENAL #### [facility] [address] [place] [address] Dr. Hari Palmer IG % 1.5 % Critically high 0.0-0.5 [facility] Comment on above: Performed By: #### M G, URIC, RENAL #### [facility] [address] [place] [address] Dr. Hari Palmer LYMPH # 1.8 103/ul Normal 1.2-3.8 [facility] Comment on above: Performed By: #### M G, URIC, RENAL #### [facility] [address] [place] [address] Dr. Hari Palmer Lymphocytes/100 WBC (Bld) 19.3 % Critically low 20.5-60.0 [facility] Comment on above: Performed By: #### M G, URIC, RENAL #### [facility] [address] [place] [address] Dr. Hari Palmer MANUAL DIFF REQ NO Normal [facility] Comment on above: Performed By: #### M G, URIC, RENAL #### [facility] [address] [place] [address] Dr. Hari Palmer MCH (RBC) [Entitic mass] 31.4 pg Normal 26.7-34.0 [facility] Comment on above: Performed By: #### M G, URIC, RENAL #### [facility] [address] [place] [address] Dr. Hari Palmer MCHC (RBC) [Mass/Vol] 32.3 g/dL Normal 29.9-35.2 [facility] Comment on above: Performed By: #### M G, URIC, RENAL #### [facility] [address] [place] [address] Dr. Hari Palmer MCV (RBC) [Entitic vol] 97.0 fL Normal 81.0-99.0 [facility] Comment on above: Performed By: #### M G, URIC, RENAL #### [facility] [address] [place] [address] Dr. Hari Palmer MONO # 0.4 103/ul Normal 0.3-0.8 [facility] Comment on above: Performed By: #### M G, URIC, RENAL #### [facility] [address] [place] [address] Dr. Hari Palmer Monocytes/100 WBC (Bld) 4.2 % Normal 1.7-12.0 [facility] Comment on above: Performed By: #### M G, URIC, RENAL #### [facility] [address] [place] [address] Dr. Hari Palmer NEUT # 6.5 103/ul Normal 1.4-6.5 [facility] Comment on above: Performed By: #### M G, URIC, RENAL #### [facility] [address] [place] [address] Dr. Hari Palmer Neutrophils/100 WBC (Bld) 70.9 % Normal 43.0-75.0 [facility] Comment on above: Performed By: #### M G, URIC, RENAL #### [facility] [address] [place] [address] Dr. Hari Palmer Platelet mean volume (Bld) [Entitic vol] 9.0 fL Critically low 9.5-13.5 [facility] Comment on above: Performed By: #### M G, URIC, RENAL #### [facility] [address] [address] [address] Hari Palmer PLT 289 103/ul Normal 150-450 [facility] Comment on above: Performed By: #### M G, URIC, RENAL #### [facility] [address] [address] [address] Hari Palmer RBC 3.38 106/ul Critically low 4.20-5.40 [facility] Comment on above: Performed By: #### M G, URIC, RENAL #### [facility] [address] [address] [address] Hari Palmer WBC 9.1 103/ul Normal 4.0-11.0 [facility] Comment on above: Performed By: #### M G, URIC, RENAL #### [facility] [address] [place] [address] Dr. Hari Palmer FERRITINon 09-01-2021 Ferritin [Mass/Vol] 204.0 ng/mL Critically high 6.2-137.0 [facility] Comment on above: Performed By: #### M G, URIC, RENAL #### [facility] [address] [place] [address] Dr. Hari Palmer IRON AND TIBCon 09-01-2021 % SATURATION 28.4 % Normal [facility] Comment on above: Performed By: #### M G, URIC, RENAL #### [facility] [address] [place] [address] Dr. Hari Palmer Iron [Mass/Vol] 80.0 ug/dL Normal 37.0-170.0 [facility] Comment on above: Performed By: #### M G, URIC, RENAL #### [facility] [address] [address] [address] Hari Palmer TIBC DIRECT 282.0 ug/dL Normal 261.0-497.0 [facility] Comment on above: Performed By: #### M G, URIC, RENAL #### [facility] [address] [place] [address] Dr. Hari Palmer MAGNESIUMon 09-01-2021 Magnesium [Mass/Vol] 2.2 mg/dL Normal 1.6-2.3 [facility] Comment on above: Performed By: #### U AMIC #### [facility] [address] [place] [address] Dr. Hari Palmer RENAL FUNCTION PANELon 09-01 Albumin [Mass/Vol] 3.5 g/dL Normal 3.5-5.0 [facility] Comment on above: Performed By: #### M G, URIC, RENAL #### [facility] [address] [place] [address] Dr. Hari Palmer Calcium [Mass/Vol] 8.7 mg/dL Normal 8.4-10.2 [facility] Comment on above: Performed By: #### M G, URIC, RENAL #### [facility] [address] [place] [address] Dr. Hari Palmer Chloride [Moles/Vol] 105 mmol/L Normal 98-107 [facility] Comment on above: Performed By: #### M G, URIC, RENAL #### [facility] [address] [place] [address] Dr. Hari Palmer CO2 [Moles/Vol] 21.1 mmol/L Critically low 22.0-30.0 [facility] Comment on above: Performed By: #### M G, URIC, RENAL #### [facility] [address] [place] [address] Dr. Hari Palmer Creatinine [Mass/Vol] 3.63 mg/dL Critically high 0.52-1.04 [facility] Comment on above: Performed By: #### M G, URIC, RENAL #### [facility] [address] [place] [address] Dr. Hari Palmer EGFR-AF MONEGASQUE 16 mL/min/1.73m2 Critically low >=60 [facility] Comment on above: Performed By: #### M G, URIC, RENAL #### [facility] [address] [place] [address] Dr. Hari Palmer EGFR-NON AF MONEGASQUE 14 mL/min/1.73m2 Critically low >=60 [facility] Comment on above: Performed By: #### M G, URIC, RENAL #### [facility] [address] [address] [address] Hari Palmer Glucose [Mass/Vol] 115 mg/dL Critically high 74-[address] [facility] Comment on above: Performed By: #### M G, URIC, RENAL #### [facility] [address] [address] [address] Hari Palmer Phosphate [Mass/Vol] 4.6 mg/dL Critically high 2.5-4.5 [facility] Comment on above: Performed By: #### M G, URIC, RENAL #### [facility] [address] [address] [address] Hari Palmer Potassium [Moles/Vol] 4.2 mmol/L Normal 3.4-5.0 [facility] Comment on above: Performed By: #### M G, URIC, RENAL #### [facility] [address] [address] [address] aHri Palmer Sodium [Moles/Vol] 138 mmol/L Normal 137-145 [facility] Comment on above: Performed By: #### M G, URIC, RENAL #### [facility] [address] [address] [address] Hari Palmer Urea nitrogen [Mass/Vol] 50.0 mg/dL Critically high 7.0-17.0 [facility] Comment on above: Performed By: #### M G, URIC, RENAL #### [facility] [address] [address] [address] Hari Palmer UA RANDOM W/MICROSCOPICon BACTERIA SMALL Abnormal NONE SEEN [facility] Comment on above: Performed By: #### U AMIC #### [facility] [address] [address] [address] Hari Palmer Bilirubin Ql (U) Negative Normal NEGATIVE [facility] Comment on above: Performed By: #### U AMIC #### [facility] [address] [address] [address] Hari Palmer CAST NONE SEEN Normal NONE SEEN [facility] Comment on above: Performed By: #### U AMIC #### [facility] [address] [address] [address] Hari Palmer Clarity (U) CLEAR Normal CLEAR [facility] Comment on above: Performed By: #### U AMIC #### [facility] [address] [place] [address] Dr. Hari Palmer Color (U) LT. YELLOW Normal YELLOW [facility] Comment on above: Performed By: #### U AMIC #### [facility] [address] [place] [address] Dr. Hari Palmer Crystals LM Nom (Urine sed) NONE SEEN Normal NONE SEEN [facility] Comment on above: Performed By: #### U AMIC #### [facility] [address] [place] [address] Dr. Hari Palmer Epithelial cells LM Ql (Urine sed) MODERATE Abnormal NONE SEEN /RARE [facility] Comment on above: Performed By: #### U AMIC #### [facility] [address] [place] [address] Dr. Hari Palmer Glucose Ql (U) Negative Normal NEGATIVE [facility] Comment on above: Performed By: #### U AMIC #### [facility] [address] [place] [address] Dr. Hari Palmer Hemoglobin Ql (U) TRACE-INTACT Abnormal NEGATIVE [facility] Comment on above: Performed By: #### U AMIC #### [facility] [address] [place] [address] Dr. Hari Palmer Ketones Ql (U) Negative Normal NEGATIVE [facility] Comment on above: Performed By: #### U AMIC #### [facility] [address] [place] [address] Dr. Hari Palmer LEUKOCYTES Negative Normal NEGATIVE [facility] Comment on above: Performed By: #### U AMIC #### [facility] [address] [place] [address] Dr. Hari Palmer MUCOUS NONE SEEN Normal NONE SEEN [facility] Comment on above: Performed By: #### U AMIC #### [facility] [address] [place] [address] Dr. Hari Palmer Nitrite Ql (U) Negative Normal NEGATIVE [facility] Comment on above: Performed By: #### U AMIC #### [facility] [address] [place] [address] Dr. Hari Palmer pH (U) 6.0 [pH] Normal 5-9 [facility] Comment on above: Performed By: #### U AMIC #### [facility] [address] [place] [address] Dr. Hari Palmer RBC 2-5 Abnormal 0-2 [facility] Comment on above: Performed By: #### U AMIC #### [facility] [address] [place] [address] Dr. Hari Palmer SPEC GRAVITY 1.010 Normal 1.005-<=1.02 5 [facility] Comment on above: Performed By: #### U AMIC #### [facility] [address] [place] [address] Dr. Hari Palmer UA PROTEIN Negative Normal NEGATIVE/ TRACE [facility] Comment on above: Performed By: #### U AMIC #### [facility] [address] [place] [address] Dr. Hari Palmer Urobilinogen Qn (U) 0.2 {Janice'U}/dL Normal 0.2 - 1. 0 [facility] Comment on above: Performed By: #### U AMIC #### [facility] [address] [place] [address] Dr. Hari Palmer WBC 2-5 Abnormal NONE SEEN [facility] Comment on above: Performed By: #### U AMIC #### [facility] [address] [place] [address] Dr. Hari aPlmer URIC ACID SERUMon 09-01-2021 Urate [Mass/Vol] 4.9 mg/dL Normal 2.5-6.2 [facility] Comment on above: Performed By: #### U AMIC #### [facility] [address] [place] [address] Dr. Hari Palmer URINE T PROTEIN CREAT RATIOo n 09-01-2021 Protein (U) [Mass/Vol] 22.2 mg/dL Critically high <=12.0 [facility] Comment on above: Performed By: #### M G, URIC, RENAL #### [facility] [address] [address] [address] Hari Palmer UR PROT CREAT RAT 0.47 Normal [facility] Comment on above: Performed By: #### M G, URIC, RENAL #### [facility] [address] [address] [address] Hari Palmer URINE CREAT 46.89 mg/dL Normal 20.00-300.00 [facility] Comment on above: Performed By: #### M G, URIC, RENAL #### [facility] [address] [address] [address] Hari Palmer VITAMIN D 25 OHon 09-01-2021 VIT D 25-OH 40.5 ng/mL Normal [facility] Comment on above: Performed By: #### M G, URIC, RENAL #### [facility] [address] [place] [address] Dr. Hari Palmer VIT D RANGES SEE BELOW Normal [facility] Comment on above: Result Comment: <20 ng/mL Vit D deficient 20 - <30 ng/mL Vit D insufficient 30 - 100 ng/mL Vit D sufficient >100 ng/mL Potential Toxicity Performed By: #### M G, URIC, RENAL #### [facility] [address] [place] [address] Dr. Hari Palmer CNOVon 03-30-2021 PETROSOV Office Visit (NEPHMN ) -------- MANDEEP PURI ([id number]) 1975 F Date Time Provider Department 03/30/21 9:20 AM PERRI BARRETT During your visit today, we recorded the following information about you: Temperature Pulse Blood pressure Weight 98.2 degrees 75/minute 122/77 93 kg Height 1.549 m Perri Barrett MD 03/30/2021 10:25 AM Signed Mrs. 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 (more content not included)... Normal [facility] Urinalysison 03-30-2021 Bilirubin, Urine Negative Normal Negative [facility] Comment on above: Performed By: #### U A #### [facility] [email or web address] [address] [address] Clarity (U) Clear Normal Clear [facility] Comment on above: Performed By: #### U A #### [email or web address] [address] [place], [place] [address] Color (U) Colorless Critically abnormal Yellow [facility] Comment on above: Performed By: #### U A #### [email or web address] [address] [place], [place] [address] Comments SEE COMMENT Normal [facility] Comment on above: Result Comment: Micr oscopic not warranted Performed By: #### U A #### [email or web address] [address] [place], [place] [address] Glucose Ql (U) Trace Critically abnormal Negative [facility] Comment on above: Performed By: #### U A #### [facility] [address] [place], [place] [address] Hemoglobin/Blood,Ur Negative Normal Negative [facility] Comment on above: Performed By: #### U A #### [facility] [address] [id number] Ketones Ql (U) Negative Normal Negative [facility] Comment on above: Performed By: #### U A #### [facility] [address] [address] Leukest Negative Normal Negative [facility] Comment on above: Performed By: #### U A #### [place] [address] Nitrite Ql (U) Negative Normal Negative [facility] Comment on above: Performed By: #### U A #### [place] [address] pH (U) 6.5 [pH] Normal 5.0-8.0 [facility] Comment on above: Performed By: #### U A #### [address] [address] Protein, Urine Negative Normal Negative [facility] Comment on above: Performed By: #### U A #### [address] [id number] Specific [place], Ur 1.008 Normal 1.005-1.030 [facility] Comment on above: Performed By: #### U A #### [address] [place], [place] [address] Urine Codi Comment SEE COMMENT Normal [facility] Comment on above: Result Comment: N/A Performed By: #### U A #### [address] [address] Urobilinogen (U) [Mass/Vol] Negative Normal Negative [facility] Comment on above: Performed By: #### U A #### [facility] [address] [place] [address] [place], [place] [address] Coding Summary.on 04-21-2020 Coding Summary. CODING DATE: 020 [facility] STATUS: Home (Routine DC) PAYOR: [facility] [place] ADMIT DX: REASON FOR VISIT DX: Z20.828 [...] CphT Date Saved: 04/21/2020 05:17 pm Normal [facility] Physician Orderon 04-21-2020 Physician Order [id number]: 127 Normal [facility] Marci 04-12-2020 ALT [Catalytic activity/Vol] 14 U/L Normal 7 - 45 [facility] Comment on above: Result Comment: Kelsea ents treated with Sulfasalazine may generate falsely decreased results for ALT. Performed By: #### A LT #### [facility] [address] [place] [address] Ronald 04-12-2020 AST [Catalytic activity/Vol] 16 U/L Normal 9 - 39 [facility] Comment on above: Performed By: #### A ST #### [facility] [address] [place] [address] CREATININEon 04-12-2020 Creatinine [Mass/Vol] 2.83 mg/dL High 0.50 - 1.05 [facility] Comment on above: Performed By: #### C REAT #### [facility] [address] [place] [address] Creatinine [Mass/Vol] 18 mL/min/1.73m2 Abnormal >60 [facility] Comment on above: Performed By: #### C REAT #### [facility] [address] [place] [address] Creatinine [Mass/Vol] 22 mL/min/1.73m2 Abnormal >60 [facility] Comment on above: Result Comment: CALC ULATIONS OF ESTIMATED GFR ARE PERFORMED USING THE MDRD STUDY EQUATION FOR THE IDMS-TRACEABLE CREATININE METHODS. CLIN CHEM 2007;53:766-72 Performed By: #### C REAT #### [facility] [address] [place] [address] URIC ACIDon 04-12-2020 Urate [Mass/Vol] 5.2 mg/dL Normal 2.3 - 6.7 [facility] Comment on above: Result Comment: Beti puncture immediately after or during the administration of Metamizole may lead to falsely low results. Testing should be performed immediately prior to Metamizole dosing. Performed By: #### U DASHAWN #### [facility] [address] [place] [address] URIC ACIDon 02-11-2020 Urate [Mass/Vol] 8.2 mg/dL High 2.3 - 6.7 [facility] Comment on above: Result Comment: Beti puncture immediately after or during the administration of Metamizole may lead to falsely low results. Testing should be performed immediately prior to Metamizole dosing. Performed By: #### U DASHAWN #### [facility] [address] [place] [address] Cult,Urineon 08-04-2019 Cult,Urine Specimen Description .CLEAN CATCH URINE Special Requests NOT REPORTED Culture ESCHERICHIA COLI >[id number] CFU/ML Report Status FINAL 08/04/2019 SUSCEPTIBILITY Organism [...] Trimethoprim/Sulfa <=20 SUSCEPTIBLE Piperacillin/Tazobactam <=4 SUSCEPTIBLE Normal [facility] Comment on above: Performed By: #### D CITLALY, LIP, CMPX, TROPI, BNP, CDP, PT #### [facility] [address] [place], [place] [id number] Planning Rn: Sami Dominguez MD Brain Natri. Peptideon 08-02 Natriuretic peptide B (Bld) [Mass/Vol] 152 pg/mL Normal <300 [facility] Comment on above: Result Comment: Pro- BNP results cannot be compared to BNP results. Performed By: #### D CITLALY, LIP, CMPX, TROPI, BNP, CDP, PT #### [facility] [address] [place], [place] [id number] Planning Rn: Sami Dominguez MD Natriuretic peptide B (Bld) [Mass/Vol] Pro-BNP Reference Range: Normal [facility] Comment on above: Result Comment: Rule Out: <300 Parra Zone: Age <50 300-450 Age 50-75 300-900 Age >75 300-1800 Usually represents mild to moderate HF but other cardiopulmonary causes cannot be ruled out. Rule In: Age <50 >450 Age 50-75 >900 Age >75 >1800 Performed By: #### D CITLALY, LIP, CMPX, TROPI, BNP, CDP, PT #### [facility] [address] [place], [place] [id number] Planning Rn: Sami Dominguez MD Brain Natriuretic Peptideon 08-02-2019 Natriuretic peptide B (Bld) [Mass/Vol] 152 pg/mL <300 [facility] [place] Comment on above: Pro-BNP results eric ot be compared to BNP results. Natriuretic peptide B (Bld) [Mass/Vol] Pro-BNP Reference Range: [place], [place] Comment on above: Rule Out: <300 Parra Zone: Age <50 300-450 Age 50-75 300-900 Age >75 300-1800 Usually represents mild to moderate HF but other cardiopulmonary causes cannot be ruled out. Rule In: Age <50 >450 Age 50-75 >900 Age >75 >1800 CBC Auto Differentialon 10-2 -2018 Basophils (Bld) [#/Vol] 0.00 10*3/uL [place] Basophils/100 WBC (Bld) 0 % 0 - 2 % M [place] Differential Type NOT REPORTED [place] Eosinophils (Bld) [#/Vol] 0.08 10*3/uL [place] Eosinophils/100 WBC (Bld) 1 % 1 - 4 % [place] Erythrocyte distribution width (RBC) [Ratio] 13.2 % 11.8 - 14.4 % [place] Hematocrit (Bld) [Volume fraction] 33.7 % Low 36.3 - 47.1 % [place] Hemoglobin (Bld) [Mass/Vol] 10.7 g/dL Low 11.9 - 15.1 g/dL [place] Immature granulocytes (Bld) [#/Vol] 0 % 0 [place] Immature granulocytes (Bld) [#/Vol] 0.00 10*3/uL [place] Interpretation and review of laboratory results Abnormal [place] Lymphocytes (Bld) [#/Vol] 0.90 10*3/uL Low [place] Lymphocytes/100 WBC (Bld) 12 % Low 24 - 43 % [place] MCH (RBC) [Entitic mass] 30.2 pg 25.2 - 33.5 pg [place] MCHC (RBC) [Mass/Vol] 31.8 g/dL 28.4 - 34.8 g/dL [place] MCV (RBC) [Entitic vol] 95.2 fL 82.6 - 102.9 fL [place] Monocytes (Bld) [#/Vol] 0.00 10*3/uL Low [place] Monocytes/100 WBC (Bld) 0 % Low 3 - 12 % M [place] Morphology Geovany (Bld) [Interp] Normal [place] Platelet mean volume (Bld) [Entitic vol] 8.6 fL 8.1 - 13.5 fL [place] Platelets (Bld) [#/Vol] NOT REPORTED [place] Platelets (Bld) [#/Vol] 335 10*3/uL [place] RBC (Bld) [#/Vol] 3.54 10*6/uL Low 3.95 - 5.1 1 m/uL [place] RBC morphology finding Nom (Bld) NOT REPORTED [place] Segmented neutrophils/100 WBC (Bld) 87 % High 36 - 65 % [place] Segs Absolute 6.52 [place] WBC (Bld) [#/Vol] 7.5 10*3/uL [place] WBC (Bld) [#/Vol] 0.0 10*3/uL 0.0 per 10 0 WBC [place] WBC Morphology NOT REPORTED [place] CBC with Diffon 08-02-2019 Abs. Basophil 0.00 k/uL Normal 0.0-0.2 [facility] Comment on above: Performed By: #### D CITLALY, LIP, CMPX, TROPI, BNP, CDP, PT #### [facility] [address] [place] [address] [place] [address] Planning Rn: Sami Dominguez MD Abs.Imm.Granulocyte 0.00 k/uL Normal 0.00-0.30 [facility] Comment on above: Performed By: #### D CITLALY, LIP, CMPX, TROPI, BNP, CDP, PT #### [facility] [address] [place] [address] Planning Rn: Sami Dominguez MD Abs.Neutrophil (Seg) 6.52 k/uL Normal 1.50-8.10 [facility] Comment on above: Performed By: #### D CITLALY, LIP, CMPX, TROPI, BNP, CDP, PT #### [address] [place] [id number] Planning Rn: Sami Dominguez MD Basophils/100 WBC (Bld) 0 % Normal 0-2 [facility] Comment on above: Performed By: #### D CITLALY, LIP, CMPX, TROPI, BNP, CDP, PT #### [facility] [address] [place], [facility] Planning Rn: Sami Dominguez MD Eosinophils (Bld) [#/Vol] 0.08 10*3/uL Normal 0.00-0.44 [facility] Comment on above: Performed By: #### D CITLALY, LIP, CMPX, TROPI, BNP, CDP, PT #### [facility] [address] [place], [facility] Planning Rn: Sami Dominguez MD Eosinophils/100 WBC (Bld) 1 % Normal 1-4 [facility] Comment on above: Performed By: #### D CITLALY, LIP, CMPX, TROPI, BNP, CDP, PT #### [address] [place], [facility] Planning Rn: Sami Dominguez MD Immature granulocytes (Bld) [#/Vol] 0 % Normal 0 [facility] Comment on above: Performed By: #### D CITLALY, LIP, CMPX, TROPI, BNP, CDP, PT #### [address] [place], [facility] Planning Rn: Sami Dominguez MD Lymphocytes (Bld) [#/Vol] 0.90 10*3/uL Low 1.10-3.70 [facility] Comment on above: Performed By: #### D CITLALY, LIP, CMPX, TROPI, BNP, CDP, PT #### [facility] [address] [place], [facility] Planning Rn: Sami Dominguez MD Lymphocytes/100 WBC (Bld) 12 % Low 24-43 [facility] Comment on above: Performed By: #### D CITLALY, LIP, CMPX, TROPI, BNP, CDP, PT #### [facility] [address] [place] [facility] Planning Rn: Sami Dominguez MD Monocytes (Bld) [#/Vol] 0.00 10*3/uL Low 0.10-1.20 [facility] Comment on above: Performed By: #### D CITLALY, LIP, CMPX, TROPI, BNP, CDP, PT #### [facility] [address] [place], [facility] Planning Rn: Sami Dominguez MD Monocytes/100 WBC (Bld) 0 % Low 3-12 [facility] Comment on above: Performed By: #### D CITLALY, LIP, CMPX, TROPI, BNP, CDP, PT #### [facility] [address] [place], [facility] Planning Rn: Sami Dominguez MD Morphology Geovany (Bld) [Interp] Normal Normal [facility] Comment on above: Performed By: #### D CITLALY, LIP, CMPX, TROPI, BNP, CDP, PT #### [facility] [address] [place], [facility] Planning Rn: Sami Dominguez MD Neutrophil (Seg) 87 % High 36-65 [facility] Comment on above: Performed By: #### D CITLALY, LIP, CMPX, TROPI, BNP, CDP, PT #### [facility] [address] [place], [place] [address] Planning Rn: Sami Dominguez MD Erythrocyte distribution width (RBC) [Ratio] 13.2 % Normal 11.8-14.4 [facility] Comment on above: Performed By: #### D CITLALY, LIP, CMPX, TROPI, BNP, CDP, PT #### [facility] [address] [place], [place] [id number] Planning Rn: Sami Dominguez MD Hematocrit (Bld) [Volume fraction] 33.7 % Low 36.3-47.1 [facility] Comment on above: Performed By: #### D CITLALY, LIP, CMPX, TROPI, BNP, CDP, PT #### [facility] [address] [place] [address] Planning Rn: Sami Dominguez MD Hemoglobin (Bld) [Mass/Vol] 10.7 g/dL Low 11.9-15.1 [facility] Comment on above: Performed By: #### D CITLALY, LIP, CMPX, TROPI, BNP, CDP, PT #### [facility] [address] [place], [place] [id number] Planning Rn: Sami Dominguez MD MCH (RBC) [Entitic mass] 30.2 pg Normal 25.2-33.5 [facility] Comment on above: Performed By: #### D CITLALY, LIP, CMPX, TROPI, BNP, CDP, PT #### [address] [place] [facility] Planning Rn: Sami Dominguez MD MCHC (RBC) [Mass/Vol] 31.8 g/dL Normal 28.4-34.8 [facility] Comment on above: Performed By: #### D CITLALY, LIP, CMPX, TROPI, BNP, CDP, PT #### [address] [place] [address] Planning Rn: Sami Dominguez MD MCV (RBC) [Entitic vol] 95.2 fL Normal 82.6-102.9 [facility] Comment on above: Performed By: #### D CITLALY, LIP, CMPX, TROPI, BNP, CDP, PT #### [facility] [address] [place] [address] Planning Rn: Sami Dominguez MD NRBC Automated 0.0 per 100 WBC Normal 0.0 [facility] Comment on above: Performed By: #### D CITLALY, LIP, CMPX, TROPI, BNP, CDP, PT #### [facility] [address] [place] [address] Planning Rn: Sami Dominguez MD Platelet mean volume (Bld) [Entitic vol] 8.6 fL Normal 8.1-13.5 [facility] Comment on above: Performed By: #### D CITLALY, LIP, CMPX, TROPI, BNP, CDP, PT #### [facility] [address] [place], [facility] Planning Rn: Sami Dominguez MD Platelets (Bld) [#/Vol] 335 10*3/uL Normal 138-453 [facility] Comment on above: Performed By: #### D CITLALY, LIP, CMPX, TROPI, BNP, CDP, PT #### [facility] [address] [place], [facility] Planning Rn: Sami Dominguez MD RBC (Bld) [#/Vol] 3.54 10*6/uL Low 3.95-5.11 [facility] Comment on above: Performed By: #### D CITLALY, LIP, CMPX, TROPI, BNP, CDP, PT #### [facility] [address] [place], [id number] Planning Rn: Sami Dominguez MD WBC (Bld) [#/Vol] 7.5 10*3/uL Normal 3.5-11.3 [facility] Comment on above: Performed By: #### D CITLALY, LIP, CMPX, TROPI, BNP, CDP, PT #### [facility] [address] [place], [place] [address] Planning Rn: Sami Dominguez MD Auto Diff Performed NOT REPORTED Normal [facility] Comment on above: Performed By: #### D CITLALY, LIP, CMPX, TROPI, BNP, CDP, PT #### [facility] [address] [place], [id number] Planning Rn: Sami Dominguez MD Platelets (Bld) [#/Vol] NOT REPORTED Normal [facility] Comment on above: Performed By: #### D CITLALY, LIP, CMPX, TROPI, BNP, CDP, PT #### [facility] [address] [place] [address] Planning Rn: Sami Dominguez MD RBC morphology finding Nom (Bld) NOT REPORTED Normal [facility] Comment on above: Performed By: #### D CITLALY, LIP, CMPX, TROPI, BNP, CDP, PT #### [facility] [address] [place] [address] Planning Rn: Sami Dominguez MD WBC Morphology NOT REPORTED Normal [facility] Comment on above: Performed By: #### D CITLALY, LIP, CMPX, TROPI, BNP, CDP, PT #### [facility] [address] [place] [address] Planning Rn: Sami Dominguez MD CTA CHEST ABDOMEN PELVIS [...] Yunier Yang MD 08/02/19 Final result Normal [facility] Moshe, pn Incoming Radiant Results From [employer] - 08/02/2019 1:21 PM EDT EXAMINATION: CTA [...] recommended. Reference: J Am Danika Radiol 2013;10:675-681 [place], [place] EXAMINATION: CTA OF THE CHEST, ABDOMEN [...] and caliber without aneurysmal dilatation or dissection. [place], [place] No evidence for aneurysmal dilatation or dissection of the aorta or its branches. Findings most compatible with polycystic kidney disease. Subtle inflammation adjacent to the descending colon is suggestive of subtle colitis. No perforation or abscess formation. No free intraperitoneal air or fluid. 4.1 cm benign appearing ovarian cyst No follow-up imaging is recommended. Reference: J Am Danika Radiol 2013;10:675-681 [place], [place] Comp Metabolic Pr/rfx MGon 1 (cont.) Normal [facility] Comment on above: Result Comment: Aver age GFR for 40-49 years old: 99 mL/min/1.73sq m Chronic Kidney Disease: <60 mL/min/1.73sq m Kidney failure: <15 mL/min/1.73sq m eGFR calculated using average adult body mass. Additional eGFR calculator available at: http://www.[employer]/multiple_crcl_2012.htm Performed By: #### D CITLALY, LIP, CMPX, TROPI, BNP, CDP, PT #### [facility] [address] [place] [address] Planning Rn: Sami Dominguez MD Albumin [Mass/Vol] 4.4 g/dL Normal 3.5-5.2 [facility] Comment on above: Performed By: #### D CITLALY, LIP, CMPX, TROPI, BNP, CDP, PT #### [facility] [address] [place] [address] Planning Rn: Sami Dominguez MD Albumin/Globulin [Mass ratio] 1.0 {ratio} Normal 1.0-2.5 [facility] Comment on above: Performed By: #### D CITLALY, LIP, CMPX, TROPI, BNP, CDP, PT #### [facility] [address] [place] [address] Planning Rn: Sami Dominguez MD Alkaline Phos 98 U/L Normal 35-104 [facility] Comment on above: Performed By: #### D CITLALY, LIP, CMPX, TROPI, BNP, CDP, PT #### [facility] [address] [place], [place] [id number] Planning Rn: Sami Dominguez MD ALT [Catalytic activity/Vol] 16 U/L Normal 5-33 [facility] Comment on above: Performed By: #### D CITLALY, LIP, CMPX, TROPI, BNP, CDP, PT #### [facility] [address] [place] [address] Planning Rn: Sami Dominguez MD Anion gap [Moles/Vol] 18 mmol/L High 9-17 [facility] Comment on above: Performed By: #### D CITLALY, LIP, CMPX, TROPI, BNP, CDP, PT #### [facility] [address] [place] [address] Planning Rn: Sami Dominguez MD AST [Catalytic activity/Vol] 18 U/L Normal <32 [facility] Comment on above: Performed By: #### D CITLALY, LIP, CMPX, TROPI, BNP, CDP, PT #### [facility] [address] [place], [id number] Planning Rn: Sami Dominguez MD Bilirubin Ql (U) 0.31 mg/dL Normal 0.3-1.2 [facility] Comment on above: Performed By: #### D CITLALY, LIP, CMPX, TROPI, BNP, CDP, PT #### [facility] [address] [place] [address] Planning Rn: Sami Dominguez MD BUN/CRE Ratio 13 Normal 9-20 [facility] Comment on above: Performed By: #### D CITLALY, LIP, CMPX, TROPI, BNP, CDP, PT #### [facility] [address] [place] [address] Planning Rn: Sami Dominugez MD Calcium [Mass/Vol] 9.7 mg/dL Normal 8.6-10.4 [facility] Comment on above: Performed By: #### D CITLALY, LIP, CMPX, TROPI, BNP, CDP, PT #### [facility] [address] [place], [place] [id number] Planning Rn: Sami Dominguez MD Chloride [Moles/Vol] 95 mmol/L Low 98-107 [facility] Comment on above: Performed By: #### D CITLALY, LIP, CMPX, TROPI, BNP, CDP, PT #### [address] [place] [address] Planning Rn: Sami Dominguez MD CO2 [Moles/Vol] 18 mmol/L Low 20-31 [facility] Comment on above: Performed By: #### D CITLALY, LIP, CMPX, TROPI, BNP, CDP, PT #### [address] [place] [address] Planning Rn: Sami Dominguez MD Creatinine [Mass/Vol] 3.07 mg/dL High 0.50-0.90 [facility] Comment on above: Performed By: #### D CITLALY, LIP, CMPX, TROPI, BNP, CDP, PT #### [facility] [address] [place] [address] Planning Rn: Sami Dominguez MD GFR, Amer 20 mL/min Low >60 [facility] Comment on above: Performed By: #### D CITLALY, LIP, CMPX, TROPI, BNP, CDP, PT #### [facility] [address] [place] [address] Planning Rn: Sami Dominguez MD GFR,non Amer 17 mL/min Low >60 [facility] Comment on above: Performed By: #### D CITLALY, LIP, CMPX, TROPI, BNP, CDP, PT #### [facility] [address] [place] [id number] Planning Rn: Sami Dominguez MD Glucose [Mass/Vol] 89 mg/dL Normal 70-99 [facility] Comment on above: Performed By: #### D CITLALY, LIP, CMPX, TROPI, BNP, CDP, PT #### [facility] [address] [place], [place] [id number] Planning Rn: Sami Dominguez MD Potassium [Moles/Vol] 3.9 mmol/L Normal 3.7-5.3 [facility] Comment on above: Performed By: #### D CITLALY, LIP, CMPX, TROPI, BNP, CDP, PT #### [facility] [address] [place], [id number] Planning Rn: Sami Dominguez MD Protein [Mass/Vol] 8.8 g/dL High 6.4-8.3 [facility] Comment on above: Performed By: #### D CITLALY, LIP, CMPX, TROPI, BNP, CDP, PT #### [facility] [address] [place], [place] [phone] Planning Rn: Sami Dominguez MD Sodium [Moles/Vol] 131 mmol/L Low 135-144 [facility] Comment on above: Performed By: #### D CITLALY, LIP, CMPX, TROPI, BNP, CDP, PT #### [facility] [address] [place] [address] Planning Rn: Sami Dominguez MD Staging: Normal [facility] Comment on above: Result Comment: Stag e 1: Some kidney damage normal GFR Stage 2: Mild kidney damage GFR 60-89 Stage 3: Moderate kidney damage GFR 30-59 Stage 4: Severe kidney damage GFR 15-29 Stage 5: Severe kidney damage GFR <15 ESRD - chronic treatment by dialysis or transplant Performed By: #### D CITLALY, LIP, CMPX, TROPI, BNP, CDP, PT #### [facility] [address] [place] [address] Planning Rn: Sami Dominguez MD Urea nitrogen [Mass/Vol] 39 mg/dL High 6-20 [facility] Comment on above: Performed By: #### D CITLALY, LIP, CMPX, TROPI, BNP, CDP, PT #### [facility] [address] [place] [address] Planning Rn: Sami Dominguez MD Comprehensive Metabolic Pane l w/ Reflex to on 08-02-2019 Albumin [Mass/Vol] 4.4 g/dL 3.5 - 5.2 g/dL [place] Albumin/Globulin [Mass ratio] 1.0 {ratio} [place] ALP [Catalytic activity/Vol] 98 U/L 35 - 104 U/L [place] ALT [Catalytic activity/Vol] 16 U/L 5 - 33 U/L [place] Anion gap [Moles/Vol] 18 mmol/L High 9 - 17 mmol/L [place] AST [Catalytic activity/Vol] 18 U/L <32 [place] Bilirubin Ql (U) 0.31 mg/dL 0.3 - 1.2 mg/dL [place] Bun/Cre Ratio 13 [place] Calcium [Mass/Vol] 9.7 mg/dL 8.6 - 10. 4 mg/dL [place] Chloride [Moles/Vol] 95 mmol/L Low 98 - 10 7 mmol/L [place] CO2 [Moles/Vol] 18 mmol/L Low 20 - 31 mmol/L [place] Creatinine [Mass/Vol] 3.07 mg/dL High 0.5 - 0.9 mg/dL [place] GFR 20 mL/min Low >60 [place] GFR Non- 17 mL/min Low >60 [place] Glucose [Mass/Vol] 89 mg/dL 70 - 99 mg/dL [place] Interpretation and review of laboratory results Abnormal [place] Potassium [Moles/Vol] 3.9 mmol/L 3.7 - 5.3 mmol/L [place] Protein [Mass/Vol] 8.8 g/dL High 6.4 - 8.3 g/dL [place] Sodium [Moles/Vol] 131 mmol/L Low 135 - 144 mmol/L [place] Urea nitrogen [Mass/Vol] 39 mg/dL High 6 - 20 mg/dL [place] D-Dimer Teston 08-02-2019 D-Dimer Test 1.15 mg/L FEU High 0.19-0.50 [facility] Comment on above: Result Comment: Elevated [...] CMPX, TROPI, BNP, CDP, PT #### [facility] [address] [place] [address] Planning Rn: Sami Dominugez MD D-Dimer, Quantitativeon 07-07 D-Dimer, Quant 1.15 [place] Comment on above: Elevated levels of [...] Interpretation and review of laboratory results Abnormal [place] Lactate, Sepsison 08-02-2019 Lactic Acid, Sepsis 3.6 mmol/L High 0.5-1.9 [facility] Comment on above: Performed By: #### L ACDS #### [facility] [address] [place] [id number] Planning Rn: Sami Dominguez MD Lactic Acid,Sep Wbld NOT REPORTED Normal 0.5-1.9 [facility] Comment on above: Performed By: #### L ACDS #### [facility] [address] [place] [phone] Planning Rn: Sami Dominguez MD Interpretation and review of laboratory results Abnormal [place] Lactic Acid, Sepsis 3.6 mmol/L High 0.5 - 1. 9 mmol/L [place] Lactic Acid, Sepsis, Whole Blood NOT REPORTED 0.5 - 1.9 mmol/L [place] Lactic Acidon 08-02-2019 Lactate [Moles/Vol] 1.0 mmol/L Normal 0.5-2.2 [facility] Comment on above: Performed By: #### D CITLALY, LIP, CMPX, TROPI, BNP, CDP, PT #### [facility] [address] [place] [phone] Planning Rn: Sami Dominguez MD Lactate [Moles/Vol] NOT REPORTED Normal 0.7-2.1 [facility] Comment on above: Performed By: #### D CITLALY, LIP, CMPX, TROPI, BNP, CDP, PT #### [facility] [address] [place] [phone] Planning Rn: Sami Dominguez MD Lactic Acid, Plasmaon 2018 Lactate [Moles/Vol] 1 mmol/L 0.5 - 2. 2 mmol/L [place] Lactic Acid, Whole Blood NOT REPORTED 0.7 - 2.1 mmol/L [place] Lipaseon 08-02-2019 Lipase [Catalytic activity/Vol] 38 U/L Normal 13-60 [facility] Comment on above: Performed By: #### D CITLALY, LIP, CMPX, TROPI, BNP, CDP, PT #### [facility] [address] [place] [address] Planning Rn: Sami Dominguez MD Lipase [Catalytic activity/Vol] 38 U/L 13 - 60 U/L [place] Metabolic Panelon 08-02-2019 GFR/1.73 sq M predicted among non-blacks MDRD (S/P/Bld) [Vol rate/Area] [place] Comment on above: Stage 1: Some [...] body mass. Additional eGFR calculator available at: http://www.[employer]/multiple_crcl_2012.htm Microscopic Urinalysison Amorphous, UA NOT REPORTED None [place] Bacteria, UA 1+ Abnormal None [place] Casts UA NOT REPORTED /LPF [place] Crystals UA NOT REPORTED None /HPF [place] Epithelial Cells UA 2 TO 5 [place] Interpretation and review of laboratory results Abnormal [place] Mucus, UA NOT REPORTED None [place] Other Observations UA NOT REPORTED NOT REQ. M [place] RBC (U) [#/Vol] None [place] Renal Epithelial, Urine NOT REPORTED 0 /HPF [place] Trichomonas, UA NOT REPORTED None [place] WBC, UA 50 TO 100 [place] Yeast, UA NOT REPORTED None [place] PTon 08-02-2019 INR Coag (PPP) [Relative time] 1.0 {INR} Normal 0.9-1.2 [facility] Comment on above: Performed By: #### D CITLALY, LIP, CMPX, TROPI, BNP, CDP, PT #### [facility] [address] [place] [address] Planning Rn: Sami Dominguez MD PT Coag (PPP) [Time] 10.0 s Normal 9.7-12.2 [facility] Comment on above: Performed By: #### D CITLALY, LIP, CMPX, TROPI, BNP, CDP, PT #### [facility] [address] [place] [address] Planning Rn: Sami Dominguez MD Protime-INRon 08-02-2019 INR Coag (PPP) [Relative time] 1.0 {INR} [place], [place] PT Coag (PPP) [Time] 10 s [place] Troponinon 08-02-2019 Troponin I.cardiac [Mass/Vol] ng/mL Normal <0.03 [facility] Comment on above: Result Comment: Trop onin T results cannot be compared to Troponin-I results. Performed By: #### D CITLALY, LIP, CMPX, TROPI, BNP, CDP, PT #### [facility] [address] [place] [address] Planning Rn: Sami Dominguez MD Troponin I.cardiac [Mass/Vol] Normal [facility] Comment on above: Result Comment: Refe [...] CMPX, TROPI, BNP, CDP, PT #### [facility] [address] [place] [address] Planning Rn: Sami Dominguez MD Troponin I.cardiac [Mass/Vol] NOT REPORTED Normal 0-14 [facility] Comment on above: Performed By: #### D CITLALY, LIP, CMPX, TROPI, BNP, CDP, PT #### [facility] [address] [place] [address] [place] [address] Planning Rn: Sami Dominguez MD Troponin I.cardiac [Mass/Vol] [place] Comment on above: Reference Range: <0.03 [...] diagnosis. Troponin T.cardiac [Mass/Vol] ug/L <0.03 ng/mL [place] Comment on above: Troponin T results c annot be compared to Troponin-I results. Troponin, High Sensitivity NOT REPORTED 0 - 14 ng/L [place] Troponin I.cardiac [Mass/Vol] ng/mL Normal <0.03 [facility] Comment on above: Result Comment: Trop onin T results cannot be compared to Troponin-I results. Performed By: #### D CITLALY, LIP, CMPX, TROPI, BNP, CDP, PT #### [address] [place] [phone] Planning Rn: Sami Dominguez MD Troponin I.cardiac [Mass/Vol] Normal [facility] Comment on above: Result Comment: Refe [...] CMPX, TROPI, BNP, CDP, PT #### [facility] [address] [place] [address] [place] [address] Planning Rn: Sami Dominguez MD Troponin I.cardiac [Mass/Vol] NOT REPORTED Normal 0-14 [facility] Comment on above: Performed By: #### D CITLALY, LIP, CMPX, TROPI, BNP, CDP, PT #### [facility] [address] [place] [address] [place] [address] Planning Rn: Sami Dominguez MD Troponin I.cardiac [Mass/Vol] [place] Comment on above: Reference Range: <0.03 [...] diagnosis. Troponin T.cardiac [Mass/Vol] ug/L <0.03 ng/mL [place] Comment on above: Troponin T results c annot be compared to Troponin-I results. Troponin, High Sensitivity NOT REPORTED 0 - 14 ng/L [place] UA w/Reflex Cultureon 2018 Acetoacetic Acid,Ur Negative Normal NEG [facility] Comment on above: Performed By: #### D CITLALY, LIP, CMPX, TROPI, BNP, CDP, PT #### [address] [place] [address] Planning Rn: Sami Dominguez MD Bilirubin, SemiQt,Ur Negative Normal NEG [facility] Comment on above: Performed By: #### D CITLALY, LIP, CMPX, TROPI, BNP, CDP, PT #### [facility] [address] [place] [address] Planning Rn: Sami Dominguez MD Color (U) YELLOW Normal YEL [facility] Comment on above: Performed By: #### D CITLALY, LIP, CMPX, TROPI, BNP, CDP, PT #### [facility] [address] [place], [id number] Planning Rn: Sami Dominguez MD Glucose Ql (U) Negative Normal [facility] Comment on above: Performed By: #### D CITLALY, LIP, CMPX, TROPI, BNP, CDP, PT #### [facility] [address] [place], [place] [phone] Planning Rn: Sami Dominguez MD Hemoglobin, Ur 1+ Abnormal NEG [facility] Comment on above: Performed By: #### D CITLALY, LIP, CMPX, TROPI, BNP, CDP, PT #### [facility] [address] [place], [id number] Planning Rn: Sami Dominguez MD Leukocyte esterase Test strip Ql (U) MODERATE Abnormal NEG [facility] Comment on above: Performed By: #### D CITLALY, LIP, CMPX, TROPI, BNP, CDP, PT #### [address] [place], [id number] Planning Rn: Sami Dominguez MD Nitrite,Ur Negative Normal [facility] Comment on above: Performed By: #### D CITLALY, LIP, CMPX, TROPI, BNP, CDP, PT #### [address] [place], [id number] Planning Rn: Sami Dominguez MD pH (U) 6.0 [pH] Normal 5.0-9.0 [facility] Comment on above: Performed By: #### D CITLALY, LIP, CMPX, TROPI, BNP, CDP, PT #### [facility] [address] [place], [place] [id number] Planning Rn: Sami Dominguez MD Protein Ql (U) TRACE Abnormal NEG [facility] Comment on above: Performed By: #### D CITLALY, LIP, CMPX, TROPI, BNP, CDP, PT #### [facility] [address] [place], [place] [id number] Planning Rn: Sami Dominguez MD Specific gravity (U) [Rel density] 1.010 Normal 1.010-1.020 [facility] Comment on above: Performed By: #### D CITLALY, LIP, CMPX, TROPI, BNP, CDP, PT #### [facility] [address] [place] [address] Planning Rn: Sami Dominguez MD Turbidity CLEAR Normal CLEAR [facility] Comment on above: Performed By: #### D CITLALY, LIP, CMPX, TROPI, BNP, CDP, PT #### [facility] [address] [place] [address] Planning Rn: Sami Dominguez MD Urobilinogen,Ur Normal Normal NORM [facility] Comment on above: Performed By: #### D CITLALY, LIP, CMPX, TROPI, BNP, CDP, PT #### [facility] [address] [place] [address] Planning Rn: Sami Dominguez MD Comment NOT REPORTED Normal [facility] Comment on above: Performed By: #### D CITLALY, LIP, CMPX, TROPI, BNP, CDP, PT #### [facility] [address] [place] [address] [place] [address] Planning Rn: Sami Dominguez MD Urinalysis Reflex to Culture on 08-02-2019 Bilirubin Urine Negative NEGATIVE [facility], [place] Color, UA YELLOW YELLOW [place] Glucose, Ur Negative NEGATIVE [place] Interpretation and review of laboratory results Abnormal [place] Ketones Ql (U) Negative NEGATIVE [place] Leukocyte esterase Test strip Ql (U) MODERATE Abnormal NEGATIVE [facility], [place] Nitrite, Urine Negative NEGATIVE [place] pH, UA 6.0 [place] Protein (U) [Mass/Vol] TRACE Abnormal NEGATIVE [facility], [place] Specific [place], UA 1.010 [facility], [place] Turbidity UA CLEAR CLEAR [place] Urinalysis Comments NOT REPORTED [place], [place] Urine Hgb 1+ Abnormal NEGATIVE [place] Urobilinogen, Urine Normal Normal [place] Urinalysis,Microon 9 ----- Normal [facility] Comment on above: Performed By: #### D CITLALY, LIP, CMPX, TROPI, BNP, CDP, PT #### [facility] [address] [place] [phone] Planning Rn: Sami Dominguez MD Bacteria LM.HPF (Urine sed) [#/Area] 1+ Abnormal [facility] Comment on above: Performed By: #### D CITLALY, LIP, CMPX, TROPI, BNP, CDP, PT #### [facility] [address] [place] [phone] Planning Rn: Sami Dominguez MD Epithelial cells LM.HPF (Urine sed) [#/Area] 2 TO 5 Normal 0-25 [facility] Comment on above: Performed By: #### D CITLALY, LIP, CMPX, TROPI, BNP, CDP, PT #### [facility] [address] [place] [address] Planning Rn: Sami Dominguez MD RBC (U) [#/Vol] None Normal 0-2 [facility] Comment on above: Performed By: #### D CITLALY, LIP, CMPX, TROPI, BNP, CDP, PT #### [facility] [address] [place] [phone] Planning Rn: Sami Dominguez MD WBC (U) [#/Vol] 50 TO 100 Normal 0-5 [facility] Comment on above: Performed By: #### D CITLALY, LIP, CMPX, TROPI, BNP, CDP, PT #### [facility] [address] [place] [address] Planning Rn: Sami Dominguez MD Amorphous sediment LM Ql (Urine sed) NOT REPORTED Normal [facility] Comment on above: Performed By: #### D CITLALY, LIP, CMPX, TROPI, BNP, CDP, PT #### [facility] [address] [place], [place] [address] Planning Rn: Sami Dominguez MD Casts LM.LPF (Urine sed) [#/Area] NOT REPORTED Normal [facility] Comment on above: Performed By: #### D CITLALY, LIP, CMPX, TROPI, BNP, CDP, PT #### [facility] [address] [place], [place] [address] Planning Rn: Sami Dominguez MD Crystals LM Nom (Urine sed) NOT REPORTED Normal [facility] Comment on above: Performed By: #### D CITLALY, LIP, CMPX, TROPI, BNP, CDP, PT #### [address] [place] [address] Planning Rn: Sami Dominguez MD Epithelial, Renal NOT REPORTED Normal 0 [facility] Comment on above: Performed By: #### D CITLALY, LIP, CMPX, TROPI, BNP, CDP, PT #### [address] [place] [address] Planning Rn: Sami Dominguez MD Mucus Strands NOT REPORTED Normal [facility] Comment on above: Performed By: #### D CITLALY, LIP, CMPX, TROPI, BNP, CDP, PT #### [address] [place], [place] [address] Planning Rn: Sami Dominguez MD Other Observations NOT REPORTED Normal NREQ [facility] Comment on above: Performed By: #### D CITLALY, LIP, CMPX, TROPI, BNP, CDP, PT #### [address] [place], [id number] Planning Rn: Sami Dominguez MD Trichomonas NOT REPORTED Normal [facility] Comment on above: Performed By: #### D CITLALY, LIP, CMPX, TROPI, BNP, CDP, PT #### [facility] [address] [place] [address] Planning Rn: Sami Dominguez MD Yeast LM Ql (Urine sed) NOT REPORTED Normal NONE [facility] Comment on above: Performed By: #### D CITLALY, LIP, CMPX, TROPI, BNP, CDP, PT #### [facility] [address] [place] [address] Planning Rn: Sami Dominguez MD XR CHEST PORTABLEon 08-02-20 [...] Cullen Ngo MD 08/02/19 Final result Normal [facility] EXAMINATION: ONE XRA Y VIEW OF THE CHEST 08/02/2019 12:59 pm COMPARISON: None. HISTORY: ORDERING SYSTEM PROVIDED HISTORY: CP TECHNOLOGIST PROVIDED HISTORY: CP FINDINGS: Heart size and pulmonary vessels are within normal limits. Lungs are clear. No focal infiltrates or significant pleural effusions are seen. There is no acute osseous abnormality. Monitor leads overlie the chest. [place] No acute cardiopulmo nary process. [place] Moshe, [facility] Incoming Radiant Results From [employer] - 08/02/2019 1:10 PM EDT EXAMINATION: ONE [...] the chest. IMPRESSION: No acute cardiopulmonary process. [place] Vital Signs Date Time Vital Sign Value Performing Clinician Facility 04-11-2025 08:08-0400 Body height 154.9 cm Ming Espinoza DO Work Phone: [facility] 04-11-2025 08:08-0400 Body mass index (BMI) [Ratio] 34.69 kg/m2 Ming Espinoza DO Work Phone: [facility] 04-11-2025 08:08-0400 Body weight 83.28 kg Ming Espinoza DO Work Phone: [facility] 04-11-2025 08:08-0400 Heart rate 78 /min Ming Espinoza DO Work Phone: [facility] 04-11-2025 08:08-0400 SaO2% (BldA) [Mass fraction] 99 % Ming Espinoza DO Work Phone: [facility] 01-03-2025 14:24-0400 Body mass index (BMI) [Ratio] 34.77 kg/m2 Ming Espinoza DO Work Phone: [facility] 01-03-2025 14:24-0400 Body weight 83.46 kg Ming Espinoza DO Work Phone: [facility] 01-03-2025 14:24-0400 Diastolic blood pressure 82 mm[Hg] Ming Espinoza DO Work Phone: [facility] 01-03-2025 14:24-0400 Heart rate 78 /min Ming Espinoza DO Work Phone: [facility] 01-03-2025 14:24-0400 SaO2% (BldA) [Mass fraction] 97 % Ming Espinoza DO Work Phone: [facility] 01-03-2025 14:24-0400 Systolic blood pressure 124 mm[Hg] Ming Espinoza DO Work Phone: [facility] 10-01-2024 08:19-0500 Body height 154.9 cm Ming Espinoza DO Work Phone: [facility] 10-01-2024 08:19-0500 Body mass index (BMI) [Ratio] 34.2 kg/m2 Ming Espinoza DO Work Phone: [facility] 10-01-2024 08:19-0500 Body weight 82.1 kg Ming Espinoza DO Work Phone: [facility] 10-01-2024 08:19-0500 Diastolic blood pressure 60 mm[Hg] Ming Espinoza DO Work Phone: [facility] 10-01-2024 08:19-0500 Heart rate 88 /min Ming Espinoza DO Work Phone: [facility] 10-01-2024 08:19-0500 SaO2% (BldA) [Mass fraction] 98 % Ming Espinoza DO Work Phone: [facility] 10-01-2024 08:19-0500 Systolic blood pressure 124 mm[Hg] Ming Espinoza DO Work Phone: [facility] 07-27-2024 08:34-0400 Body temperature 97.81 [degF] Lucero Didion SHIPPING AGENT Work Phone: [facility] 07-27-2024 08:34-0400 Diastolic blood pressure 74 mm[Hg] Lucero Didion SHIPPING AGENT Work Phone: [facility] 07-27-2024 08:34-0400 Heart rate 83 /min Lucero Didion SHIPPING AGENT Work Phone: [facility] 07-27-2024 08:34-0400 SaO2% (BldA) [Mass fraction] 98 % Lucero Didion SHIPPING AGENT Work Phone: [facility] 07-27-2024 08:34-0400 Systolic blood pressure 118 mm[Hg] Lucero Didion SHIPPING AGENT Work Phone: [facility] 03-15-2024 17:34-0400 Body height 157.48 cm JAVA DEVELOPMENT TEAM LEAD Andreia Jerry Work Phone: [facility] 03-15-2024 17:34-0400 Body mass index (BMI) [Ratio] 31.8 kg/m2 [employer] DEVELOP[employer] TEAM LEAD Andreia Jerry Work Phone: [facility] 03-15-2024 17:34-0400 Body temperature 100.3 [degF] JAVA DEVELOPMENT TEAM LEAD Andreia Jerry Work Phone: [facility] 03-15-2024 17:34-0400 Body weight 78.92 kg JAVA DEVELOPMENT TEAM LEAD Andreia Jerry Work Phone: [facility] 03-15-2024 17:34-0400 Diastolic blood pressure 79 mm[Hg] JAVA DEVELOPMENT TEAM LEAD Andreia Jerry Work Phone: [facility] 03-15-2024 17:34-0400 Heart rate 88 /min JAVA DEVELOPMENT TEAM LEAD Andreia Jerry Work Phone: [facility] 03-15-2024 17:34-0400 Respiratory rate 18 /min JAVA DEVELOPMENT TEAM LEAD Andreia Jerry Work Phone: [facility] 03-15-2024 17:34-0400 SaO2% (BldA) [Mass fraction] 96 % JAVA DEVELOPMENT TEAM LEAD Andreia Jerry Work Phone: [facility] 03-15-2024 17:34-0400 Systolic blood pressure 121 mm[Hg] JAVA DEVELOPMENT TEAM LEAD Andreia Jerry Work Phone: [facility] 07-30-2022 17:40-0400 Body height 157.48 cm Yaneth Toni Other [employer] Other 07-30-2022 17:40-0400 Body mass index (BMI) [Ratio] 36.69 kg/m2 Yaneth Toni Other [employer] Other 07-30-2022 17:40-0400 Body temperature 97.4 [degF] Yaneth Toni Other [employer] Other 07-30-2022 17:40-0400 Body weight 90.99 kg Yaneth Toni Other [employer] Other 07-30-2022 17:40-0400 Diastolic blood pressure 85 mm[Hg] Yaneth Toni Other [employer] Other 07-30-2022 17:40-0400 Respiratory rate 18 /min Yaneth Toni Other [employer] Other 07-30-2022 17:40-0400 SaO2% (BldA) [Mass fraction] 99 % Yaneth Toni Other [employer] Other 07-30-2022 17:40-0400 Systolic blood pressure 124 mm[Hg] Yaneth Toni Other [employer] Other 07-03-2022 09:45-0400 Body height 157.48 cm Estefania Vo Other [employer] Other 07-03-2022 09:45-0400 Body mass index (BMI) [Ratio] 36.76 kg/m2 Estefania Camarillogary Other [employer] Other 07-03-2022 09:45-0400 Body temperature 97 [degF] Estefania Camarillogary Other [employer] Other 07-03-2022 09:45-0400 Body weight 91.17 kg Estefania Camarillogary Other [employer] Other 07-03-2022 09:45-0400 Diastolic blood pressure 60 mm[Hg] Estefania Camarillogary Other [employer] Other 07-03-2022 09:45-0400 SaO2% (BldA) [Mass fraction] 99 % Estefania Vo Other [facility] [employer] Other 07-03-2022 09:45-0400 Systolic blood pressure 110 mm[Hg] Estefania Vo Other [facility] [employer] Other 06-20-2022 16:10-0400 Diastolic blood pressure 68 mm[Hg] DO Ming Espinoza Work Phone: [facility] 06-20-2022 16:10-0400 Heart rate 69 /min DO Ming Alexis Work Phone: [facility] 06-20-2022 16:10-0400 Respiratory rate 18 /min DO Ming Espinoza Work Phone: [facility] 06-20-2022 16:10-0400 SaO2% (BldA) [Mass fraction] 100 % DO Ming Espinoza Work Phone: [facility] 06-20-2022 16:10-0400 Systolic blood pressure 126 mm[Hg] DO Ming Alexis Work Phone: [facility] 06-20-2022 13:15-0400 Body height 157.48 cm DO Ming Espinoza Work Phone: [facility] 06-20-2022 13:15-0400 Body temperature 98.6 [degF] DO Ming Espinoza Work Phone: [facility] 06-20-2022 13:15-0400 Body weight 91.5 kg DO Ming Alexis Work Phone: [facility] 06-18-2022 10:45-0400 Diastolic blood pressure 79 mm[Hg] DO Ming Alexis Work Phone: [facility] 06-18-2022 10:45-0400 Heart rate 66 /min DO Ming Alexis Work Phone: [facility] 06-18-2022 10:45-0400 Respiratory rate 16 /min DO Ming Espinoza Work Phone: [facility] 06-18-2022 10:45-0400 SaO2% (BldA) [Mass fraction] 100 % DO Ming Espinoza Work Phone: [facility] 06-18-2022 10:45-0400 Systolic blood pressure 130 mm[Hg] DO Ming Espinoza Work Phone: [facility] 06-18-2022 08:08-0400 Body mass index (BMI) [Ratio] 37.8 kg/m2 DO Ming Espinoza Work Phone: [facility] 06-18-2022 07:41-0400 Body height 157.48 cm DO Ming Espinoza Work Phone: [facility] 06-18-2022 07:41-0400 Body weight 93.89 kg DO Ming Espinoza Work Phone: [facility] 06-18-2022 06:26-0400 Body temperature 98.5 [degF] DO Ming Espinoza Work Phone: [facility] 05-30-2022 11:00-0400 Body height 157.48 cm Jesus Parham Other [employer] Other 05-30-2022 11:00-0400 Body mass index (BMI) [Ratio] 36.76 kg/m2 Jesus Parham Other [employer] Other 05-30-2022 11:00-0400 Body temperature 97.6 [degF] Jesus Parham Other [employer] Other 05-30-2022 11:00-0400 Body weight 91.17 kg Jesus Parham Other [employer] Other 05-30-2022 11:00-0400 Diastolic blood pressure 76 mm[Hg] Jesus Parham Other [employer] Other 05-30-2022 11:00-0400 SaO2% (BldA) [Mass fraction] 98 % Jesus Parham Other [employer] Other 05-30-2022 11:00-0400 Systolic blood pressure 128 mm[Hg] Jesus Parham Other [employer] Other 05-02-2022 14:40-0400 Body height 157.48 cm Yaneth Toni Other [employer] Other 05-02-2022 14:40-0400 Body mass index (BMI) [Ratio] 36.76 kg/m2 Yaneth Toni Other [employer] Other 05-02-2022 14:40-0400 Body temperature 97.7 [degF] Yaneth Toni Other [employer] Other 05-02-2022 14:40-0400 Body weight 91.17 kg Yaneth Toni Other [employer] Other 05-02-2022 14:40-0400 Diastolic blood pressure 88 mm[Hg] Yaneth Toni Other [employer] Other 05-02-2022 14:40-0400 Respiratory rate 18 /min Yaneth Toni Other [employer] Other 05-02-2022 14:40-0400 SaO2% (BldA) [Mass fraction] 98 % Yaneth Toni Other [employer] Other 05-02-2022 14:40-0400 Systolic blood pressure 121 mm[Hg] Yaneth Toni Other [employer] Other 04-30-2022 10:10-0400 Body height 157.48 cm Dipika Stinson Other [employer] Other 04-30-2022 10:10-0400 Body mass index (BMI) [Ratio] 37.86 kg/m2 Dipika Juniorault Other [employer] Other 04-30-2022 10:10-0400 Body temperature 97.4 [degF] Dipika Juniorault Other [employer] Other 04-30-2022 10:10-0400 Body weight 93.9 kg Dipika Stinson Other [employer] Other 04-30-2022 10:10-0400 Diastolic blood pressure 80 mm[Hg] Dipiak Juniorault Other [employer] Other 04-30-2022 10:10-0400 Respiratory rate 16 /min Dipika Juniorault Other [employer] Other 04-30-2022 10:10-0400 SaO2% (BldA) [Mass fraction] 100 % Dipika Juniorault Other [employer] Other 04-30-2022 10:10-0400 Systolic blood pressure 117 mm[Hg] Dipika Juniorault Other [employer] Other 04-01-2022 09:13-0400 Diastolic blood pressure 62 mm[Hg] DO Ming Espinoza Work Phone: [facility] 04-01-2022 09:13-0400 Heart rate 83 /min DO Ming Espinoza Work Phone: [facility] 04-01-2022 09:13-0400 Respiratory rate 16 /min DO Ming Espinoza Work Phone: [facility] 04-01-2022 09:13-0400 SaO2% (BldA) [Mass fraction] 97 % DO Ming Espinoza Work Phone: [facility] 04-01-2022 09:13-0400 Systolic blood pressure 101 mm[Hg] DO Ming Espinoza Work Phone: [facility] 04-01-2022 07:23-0400 Body height 157.48 cm DO Ming Espinoza Work Phone: [facility] 04-01-2022 07:23-0400 Body mass index (BMI) [Ratio] 37.8 kg/m2 DO Ming Espinoza Work Phone: [facility] 04-01-2022 07:23-0400 Body temperature 97.8 [degF] DO Ming Espinoza Work Phone: [facility] 04-01-2022 07:23-0400 Body weight 93.89 kg DO Ming Espinoza Work Phone: [facility] 12-06-2021 16:20-0500 Body height 157.48 cm Yaneth Toni Other [employer] [facility] [employer] Other 12-06-2021 16:20-0500 Body mass index (BMI) [Ratio] 37.86 kg/m2 Yaneth Toni Other [employer] [facility] [employer] Other 12-06-2021 16:20-0500 Body weight 93.9 kg Yaneth Toni Other [employer] Other 12-06-2021 16:20-0500 Diastolic blood pressure 89 mm[Hg] Yaneth Toni Other [employer] Other 12-06-2021 16:20-0500 Respiratory rate 18 /min Yaneth Toni Other [employer] Other 12-06-2021 16:20-0500 SaO2% (BldA) [Mass fraction] 97 % Yaneth Toni Other [employer] Other 12-06-2021 16:20-0500 Systolic blood pressure 134 mm[Hg] Yaneth Toni Other [employer] Other 08-02-2019 16:35-0400 Body Temperature 99.3 [degF] [facility] [place] 08-02-2019 16:27-0400 Pulse (Heart Rate) 110 /min [place] 08-02-2019 16:27-0400 Pulse Oximetry 98 % [place], [place] 08-02-2019 16:27-0400 Respiratory Rate 14 /min [facility] [place] 08-02-2019 16:16-0400 BP Diastolic 56 mm[Hg] [place] 08-02-2019 16:16-0400 BP Systolic 97 mm[Hg] [place] 08-02-2019 14:59-0400 BMI (Body Mass Index) 37.79 kg/m2 [place] 08-02-2019 14:59-0400 Body weight 90.72 kg [place] 08-02-2019 14:59-0400 Height 154.9 cm [place] Encounters Encounter Date Encounter Type Care Provider Facility Start: 04-11-2025 End: 04-11-2025 Patient encounter status Ming Espinoza DO Work Phone: [facility] Start: 04-11-2025 End: 04-11-2025 Periodic preventive med est patient 40-64yrs Ming Espinoza DO Work Phone: [facility] Comment on above: Benign essential hyp ertension (Primary Dx); ADPKD (autosomal dominant polycystic kidney disease); Type 2 diabetes mellitus with stage 3a chronic kidney disease, without long-term current use of insulin ([facility]); Renal transplant recipient ([facility]); Mixed anxiety and depressive disorder; Chronic fatigue; Encounter for general health examination; Class 1 obesity due to excess calories with serious comorbidity and body mass index (BMI) of 34.0 to 34.9 in adult; Fibromyalgia; Low vitamin D level Start: 04-11-2025 End: 04-11-2025 ambulatory MING ESPINOZA Not Available Start: 04-02-2025 End: 04-02-2025 Clinisync Result Encounter Generic External Data Provider [facility] External Department Unsolicited Start: 04-02-2025 End: 04-02-2025 Clinisync Result Encounter Generic External Data Provider [...] Ming Espinoza DO Work Phone: [facility] Comment on above: Polycystic kidney di sease (Primary Dx); Anemia of renal disease; Immunosuppressive management encounter following kidney transplant ([facility]); Renal transplant recipient ([facility]/HCC); Type 2 diabetes mellitus with stage 3a chronic kidney disease, without long-term current use of insulin (HCC) (CMS/HCC); Dyslipidemia (CMS/HCC) Start: 01-03-2025 End: 01-03-2025 ambulatory MING ESPINOZA Not Available Start: 12-03-2024 End: 12-03-2024 Clinisync Result Encounter Generic External Data Provider [facility] External Department Unsolicited Start: 12-03-2024 End: 12-03-2024 Clinisync Result Encounter Generic External Data Provider [facility] External Department Unsolicited Start: 11-12-2024 End: 11-12-2024 ambulatory [facility] Start: 11-04-2024 End: 11-07-2024 Clinisync Result [...] 10-14-2024 ambulatory Ming Espinoza DO Work Phone: [facility] Work Phone: Start: 10-14-2024 End: 10-14-2024 Departed Referred Ming Espinoza DO Work Phone: [facility]-LAB [facility] Start: 10-02-2024 End: 10-02-2024 Clinisync Result Encounter Generic External Data Provider [facility] External Department Unsolicited Start: 10-02-2024 End: 10-02-2024 Clinisync Result Encounter Generic External Data Provider [facility] External Department Unsolicited Start: 10-01-2024 End: 10-01-2024 Office outpatient visit 40 minutes Ming Espinoza DO Work Phone: [facility] Comment on above: Benign essential hyp ertension (CMS/HCC) (Primary Dx); Renal transplant recipient ([facility]); Immunosuppressive management encounter following kidney transplant ([facility]); Anemia of renal disease; Iron deficiency anemia, unspecified iron deficiency anemia type; Type 2 diabetes mellitus with stage 3a chronic kidney disease, without long-term current use of insulin (HCC) ([facility]); Dyslipidemia ([facility]); Fibromyalgia; Need for immunization against [...] encounter procedure Ming Espinoza DO Work Phone: [facility] Work Phone: Start: 08-25-2024 End: 08-25-2024 ambulatory Ming Espinoza DO Work Phone: [facility] Work Phone: Start: 08-02-2024 End: 08-03-2024 [...] encounter procedure DO Ming Espinoza Work Phone: [facility]-X[facility] Work Phone: Start: 08-02-2024 End: 08-02-2024 ambulatory DO Ming Espinoza Work Phone: [facility] Work Phone: Start: 07-31-2024 End: 07-31-2024 Clinisync Result Encounter Generic External Data Provider [facility] External Department Unsolicited Start: 07-31-2024 End: 07-31-2024 Clinisync Result Encounter Generic External Data Provider [facility] External Department Unsolicited Start: 07-27-2024 End: 07-27-2024 Office outpatient visit 15 minutes Lucero Hudson [employer]IPPING AGENT Work Phone: [facility] Comment on above: Acute non-recurrent pansinusitis (Primary Dx); Side effect of medication Start: 07-27-2024 End: 07-27-2024 ambulatory MING ESPINOZA Not Available Start: 07-07-2024 End: 07-07-2024 ambulatory [facility] Start: 07-02-2024 End: 07-02-2024 ambulatory [facility] Start: 06-29-2024 End: 06-29-2024 Clinisync Result [...] Unsolicited Start: 05-19-2024 End: 05-19-2024 ambulatory SREE BLANCHARD [facility] Start: 04-27-2024 End: 04-27-2024 ambulatory MUNIRA TRENTMADHU [facility] Start: 04-23-2024 ambulatory SREE [facility] Start: 04-19-2024 End: 04-19-2024 ambulatory BLAKE Peng JAYCEE Not Available Start: 04-14-2024 End: 04-14-2024 ambulatory MUNIRA NEWMANQUETAMIKESalome Not Available Start: 03-15-2024 End: 03-15-2024 ambulatory Andreia Edwards [facility] Work Phone: Start: 03-15-2024 End: 03-15-2024 Departed Referred JAVA DEVELOPMENT TEAM LEADRoxy Edwards Work Phone: [facility]-Lab [address] [place] Work Phone: Start: 03-15-2024 End: 03-15-2024 Patient encounter procedure JAVA DEVELOPMENT TEAM LEADRoxy Edwards Work Phone: [facility] Work Phone: Start: 11-06-2023 End: 11-06-2023 Patient encounter procedure DO Ming Espinoza Work Phone: [facility]-Lab [address] Work Phone: Start: 11-06-2023 End: 11-06-2023 ambulatory DO Ming Espinoza Work Phone: [facility] Work Phone: Start: 07-30-2022 End: 07-30-2022 ambulatory Yaneth Toni Other [employer] Other Start: 07-30-2022 Office outpatient vi sit 25 minutes Yaneth Toni [facility] Start: 07-29-2022 End: 07-30-2022 ambulatory YANETH TONI Facility:[facility] Start: 07-16-2022 End: 07-16-2022 ambulatory DO Ming Espinoza Work Phone: [facility] Work Phone: Start: 07-16-2022 End: 07-16-2022 Patient encounter procedure DO Ming Espinoza Work Phone: [facility] Start: 07-03-2022 End: 07-03-2022 ambulatory Estefania Vo Other [employer] Other Start: 07-03-2022 Follow-up encounter Estefania [facility] Start: 06-20-2022 End: 06-20-2022 ambulatory Jesus Parham Other [employer] Other Start: 06-20-2022 Telephone encounter Jesus Macedo [facility] Vascular Surgery Start: 06-20-2022 End: 06-20-2022 Emergency department patient visit DO Ming Espinoza Work Phone: [facility]-Emergency Room Start: 06-18-2022 End: 06-18-2022 Admission to same day surgery center DO Ming Espinoza Work Phone: [facility]-Surgery Center [address] [place] Start: 06-14-2022 End: 06-14-2022 Patient encounter procedure DO Ming Espinoza Work Phone: [facility]-Pre-Surgical Testing Start: 06-06-2022 End: 06-07-[address] BRINDA HINOJOSA Facility:[facility] Start: 06-05-2022 End: 06-05-2022 Patient encounter procedure DO Ming Espinoza Work Phone: [facility]-Pre-Surgical Testing Start: 06-03-2022 End: 06-03-2022 ambulatory Jesus Parham Other [employer] Other Start: 06-03-2022 Encounter for other preprocedural examination Jesus Dione [facility] Vascular Surgery Start: 06-03-2022 Telephone encounter Jesus adler [facility] Vascular Surgery Start: 05-30-2022 End: 05-30-2022 ambulatory Jesus Parham Other [employer] Other Start: 05-30-2022 [facility] visit new patient Jesus isabel [facility] Vascular Surgery Start: 05-30-2022 End: 05-30-2022 Patient encounter procedure DO Ming Espinoza Work Phone: [facility] Start: 05-29-[address] BLAKE HINOJOSA [facility] ity:H1 Start: 05-02-2022 End: 05-02-2022 ambulatory Yaneth Toni Other [employer] Other Start: 05-02-2022 Office outpatient vi sit 25 minutes Yaneth Toni [facility] Nephrology Start: 04-30-2022 End: 04-30-2022 ambulatory Dipika Stinson Other [employer] Other Start: 04-30-2022 Office outpatient vi sit 15 minutes Dipika Stinson [facility] Start: 04-30-2022 Encounter for preprocedural laboratory examination YANETH TONI [facility] Start: 04-29-2022 Encounter for other preprocedural examination [...] surgery center DO Ming Espinoza Work Phone: [facility]-Digestive Health Start: 03-29-2022 End: 03-30-[address] DOCTOR ALEJANDRO Facility:[facility]1 Start: 03-29-2022 End: 03-30-2022 Encounter for other specified special examinations DR DOCTOR ALEJANDRO Facility:[facility] Start: 03-28-2022 End: 03-28-2022 Patient encounter procedure DO Ming Espinoza Work Phone: [facility]-Pre-Surgical Testing Start: 02-26-2022 End: 02-26-2022 ambulatory Shabbir Jones Other [employer] Other Start: 02-26-2022 Telephone encounter Shabbir VELAZQUEZ [employer] Start: 12-06-2021 End: 12-06-2021 ambulatory Yaneth Toni Other [employer] Other Start: 12-06-2021 Office outpatient vi sit 25 minutes Yaneth Toni [facility] Start: 12-03-2021 End: 12-04-2021 ambulatory YANETH TONI Facility:[facility] Start: 09-01-2021 End: 09-02-[address] MING ESPINOZA Facility:[facility] Start: 08-02-2019 End: 08-02-2019 [facility] Start: 08-02-2019 End: 08-02-2019 Emergency department patient visit Vidal Madrigal Work Phone: [facility] ED Comment on above: Acute sepsis (HCC) ( Primary Dx); Acute cystitis without hematuria; Chronic renal failure, stage 4 (severe) (HCC); Polycystic kidney disease Procedures Date Procedure Procedure Detail Performing Clinician Start: 04-02-2025 ALL MAGNESIUM Generic E xternal Data Provider Start: 04-02-2025 ALL PHOSPHOROUS Generic External Data Provider Start: 04-02-2025 ALL URIC ACID Generic E xternal Data Provider Start: 04-02-2025 [facility] CMP (CMP) (FOR [facility] USE) Generic External Data Provider Start: 04-02-2025 METRO BILIRUBIN, DIRECT Generic External Data Provider Start: 03-03-2025 ALL CBC WITH AUTO DIFF [...] Provider Start: 10-02-2024 [facility] CMP (CMP) (FOR [facility] USE) Generic External Data Provider [...] Provider Start: 08-31-2024 [facility] CMP (CMP) (FOR [facility] USE) Generic External Data Provider [...] or methods may not be comparable. [facility] Laboratory mental health technician and method: RUSSELL UNICEL DXI, 2 SITE IMMUNOENZYMATIC SANDWICH ASSAY. Start: 08-02-2024 Plain chest X-ray DO Blanche Espinoza Work Phone: Start: 08-02-2024 Carcinoembryonic ant igen cea Blake Hinojosa DO Work Phone: Comment on above: Result Comment: Seri al tumor marker results determined by assays using different manufacturers or methods may not be comparable. [facility] Laboratory mental health technician and method: RUSSELL UNICEL DXI, 2 SITE IMMUNOENZYMATIC ?SANDWICH? ASSAY. PERFORMED BY: [facility] [address] [place] [address] PATHOLOGIST FAMILY SERVICES ASSISTANT ANAHY MCKEE M.D. Performed By: #### C A125 ####[facility] ,#### CEA ####[facility] [place] [address] [facility] Start: 08-02-2024 Immunoassay tumor an tigen quantitative [...] VIDAL KAITLIN Start: 08-02-2019 BRAIN NATRIURETIC PEPTIDE VIDLA KAITLIN Start: 08-02-2019 Fibrin dgradj produc ts [...] recipient (CMS/HCC) Ming Espinoza DO Work Phone: History of renal transplant Tanja l transplant recipient ([facility]/HCC) Ming Espinoza DO Work Phone: History of renal transplant Tanja l transplant recipient (HCC) Ming Espinoza DO Work Phone: SARS Antigen (LFIA) DO Angy Espinoza Work Phone: Plan of Treatment Date Care Activity Detail Author Start: 04-01-2032 Screening for malign ant neoplasm of colon [facility] Start: 08-25-2025 Screening for malign ant neoplasm of breast Mammogram [facility] Start: 06-06-2025 Influenza vaccination Influenza Vacc ine (#1) [facility] Start: 06-03-2025 Hemoglobin A1c measurement Violet betes: Hemoglobin A1C [facility] Start: 04-23-2025 Urine screening for protein Diabetes: Urine Protein Screening [facility] Start: 04-11-2025 End: 04-11-2025 Patient encounter procedure 04/11/2025 8:00 AM EDT Office Visit [facility] [address] [place], [place] [address] Ming Espinoza, DO [address] [place] [address] [facility] Start: 04-06-2025 End: 04-06-2025 Patient encounter procedure 04/06/2025 8:15 AM EDT Office Visit [facility] [address] [place] [address] Ming Espinoza, DO [address] [place] [address] [facility] Start: 04-01-2025 End: 04-01-2025 Patient encounter procedure 04/01/2025 8:15 AM EDT Office Visit [facility] [address] [place], [place] [phone] Ming Espinoza, DO [address] [place] [address] [facility] Start: 10-14-2024 Bacteria identified in Urine by Culture Urine Culture [facility] Start: 10-14-2024 Urine culture [facility] Start: 10-01-2024 End: 10-01-2024 Patient encounter procedure 10/01/2024 8:15 AM EST Office Visit [facility] [address] [place], [place] [phone] Ming Espinoza, DO [address] [place] [address] [facility] Start: 09-14-2024 End: 09-14-2024 Patient encounter procedure 09/14/2024 8:45 AM EST Office Visit [facility] [address] [place], [place] [phone] Blake Hinojosa, DO [address] [place] [address] [facility] Start: 08-26-2024 Urine screening for protein Diabetes: Urine Protein Screening [facility] Start: 08-02-2024 End: 08-02-2024 Patient encounter procedure 08/02/2024 11:00 AM EDT Office Visit [facility] [address] [place], [place] [phone] Blake Hinojosa, DO [address] [place] [address] [facility] Start: 08-02-2024 End: 08-02-2024 Professional / ancillary services management 08/02/2024 10:15 AM EDT Ancillary Procedure [facility] [address] [place] [address] [facility] Start: 08-02-2024 [facility] Start: 07-24-2024 Hemoglobin A1c measurement Violet betes: Hemoglobin A1C [facility] Start: 06-06-2024 Influenza vaccination Influenza Vacc ine (#1) [facility] Start: 03-16-2024 Bacteria identified in Urine by Culture [facility] Start: 03-15-2024 Bacteria identified in Urine by Culture [facility] Start: 11-06-2023 [facility] Start: 07-29-2023 Urine screening for protein Diabetes: Urine Protein Screening [facility] Start: 07-16-2023 Screening for malign ant neoplasm of breast Mammogram [facility] Start: 06-18-2022 [facility] Start: 06-18-2022 [facility] Start: 04-01-2022 [facility] Work Phone: Start: 06-06-2019 Influenza vaccination Flu vaccine (# 1) [place], [place] Start: 2015 Lipid screen Lipid screen [place], [place] Start: 1996 Cervical cancer screen Cervical canc er screen [place], [place] Start: 1994 DTaP/Tdap/Td vaccine (1 - Tdap) DTaP/Tdap/Td vaccine (1 - Tdap) [place], [place] Start: 1990 HIV screen HIV screen [place], [place] Start: 1985 Glaucoma screening Diabetes: R etinopathy Screening [facility] Start: 1975 Creatinine monitoring Creatinine mon itoring [place], [place] Start: 1975 Potassium monitoring Potassium monit oring [place], [place] Start: 1975 Screening for malign ant neoplasm of colon [facility] 24 hour urine measurement [facility] Albumin [Mass/volume ] in Serum or Plasma [facility] Albumin/Globulin ratio [facility] Aldolase measurement [facility] End: 08-02-2019 Bacteria identified Cx Nom (U) Urine Culture Microbiology STAT One Time for 1 Occurrences starting 08/02/2019 until 08/02/2019 [place], [place] Comment on above: One Time for 1 Occur rences starting 08/02/2019 until 08/02/2019 Bacteria identified Cx Nom (U) Urine Culture Microbiology STAT 08/02/2019 1:00 PM EDT [place] Bacteria identified in Urine by Culture URINE CULTURE, ROUTINE Lab Routine 06/10/2024 1:35 PM EDT [facility] Bacteria identified in Urine by Culture URINE CULTURE, ROUTINE Lab Routine 11/04/2024 8:55 PM EST [facility] CA 125 CA 125 Lab Routi ne Cyst of left ovary Ordered: 08/02/2024 [facility] Comment on above: Ordered: 08/02/2024 Cancer Ag 125 [Units/volume] in Serum or Plasma [facility] Carcinoembryonic Ag [Mass/volume] in Serum or Plasma [facility] Lab Routine Cyst of left ovary Ordered: 08/02/2024 [facility] Work Phone: Comment on above: Ordered: 08/02/2024 End: 08-02-2019 Culture blood #1 Culture blood #1 Microbiology STAT One Time for 1 Occurrences starting 08/02/2019 until 08/02/2019 [place], [place] Comment on above: One Time for 1 Occur rences starting 08/02/2019 until 08/02/2019 End: 08-02-2019 Culture blood #2 Culture blood #2 Microbiology STAT One Time for 1 Occurrences starting 08/02/2019 until 08/02/2019 [place], [place] Comment on above: One Time for 1 Occur rences starting 08/02/2019 until 08/02/2019 EKG 12 Lead EKG 12 Lead ECG STAT 08/02/2019 12:25 PM EDT [place] Electrophoresis: [id number] [facility] Electrophoresis: [id number] [facility] Electrophoresis: beta-globulin [facility] Electrophoresis: laura ma globulin [facility] Globulin [Mass/volum e] in Serum [facility] Homogenous nuclear A b pattern [Titer] in Serum [facility] IgA [Mass/volume] in Serum or Plasma [facility] IgG [Mass/volume] in Serum or Plasma [facility] IgM [Mass/volume] in Serum or Plasma [facility] Immunofixation for Urine Fir [facility] Initiate Oxygen Ther apy Protocol Initiate Oxygen Therapy Protocol Respiratory Care Routine Daily until discontinued starting 08/02/2019, 2 completed [facility], [place] Comment on above: Daily until disconti nued starting 08/02/2019, 2 completed End: 08-02-2019 Lactate, Sepsis Lactate, Sepsis Lab Timed Now Then Every 2hr for 2 Occurrences starting 08/02/2019 until 08/02/2019, 1 completed [facility] [place] Comment on above: Now Then Every 2hr f or 2 Occurrences starting 08/02/2019 until 08/02/2019, 1 completed Measurement of monoc lonal protein concentration [facility] Nuclear Ab [Titer] i n Serum [facility] Patient Education [facility] Work Phone: Patient referral [facility] Work Phone: Potassium [Moles/vol ume] in Serum or Plasma [facility] Work Phone: Protein [Mass/volume ] in Serum or Plasma [facility] Protein [Mass/volume ] in Urine [facility] Serum immunofixation [facility] Immunizations Immunization Date Immunization Notes Care Provider Chirag drew 10-01-2024 Influenza, Madin Roman by Canine Kidney, subunit, trivalent, injectable, contains preservative Ming Espinoza DO Work Phone: [facility] 10-01-2024 influenza virus vacc ine, unspecified formulation Ming Espinoza DO Work Phone: [facility] 10-26-2023 Influenza, injectabl e, Madin [place] Canine Kidney, preservative free, quadrivalent Generic Provider [facility] 10-26-2023 influenza virus vacc ine, unspecified formulation Generic Provider [facility] 10-13-2021 COVID-19 Ad26.COV2.S (Butter) DO Ming Espinoza Work Phone: [facility] 05-29-2020 influenza, high dose seasonal, preservative-free Generic Provider [facility] 08-11-2019 influenza, injectabl e, madin raymond canine kidney, preservative free Generic Provider [facility] 01-26-2018 pneumococcal polysaccharide vaccine, 23 valent Generic Provider [facility] 07-22-2014 seasonal influenza, intradermal, preservative free Generic Provider [facility] Payers Date Payer Category Payer Private Health Insurance [employer] Member Subscriber Plan / Payer (Effective 2023-Present) Name: Mandeep Puri Relation to Subscriber: Spouse Name: Khushi Evan Teresa Date of : 1970 Address: [address] [place] [address] Payer ID: Not on file Type: Not on file Address: [address] [place] [id number] 2023 Unknown [employer] [id number] 2023-Present [address] [place] [address] [id number] 2015 Unknown [employer] M [employer] [address] xxxxxxxxx 2015-Present [phone] [address] [place] [address] xxxxxxxxx [id number]. [id number] 1975 Unknown [id number] 2.16.840.1.086711.3.579. 2.173 1975 Unknown [id number] 2.16.840.1.110803.3.579. 2.593 1975 Unknown [id number] 2.16.840.1.249142.3.579. 2.593 1975 Unknown [id number] 2.16.840.1.088534.3.579. 2.593 1975 Unknown [id number] 2.16.840.1.729566.3.579. 2.593 1975 Unknown [id number] 2.16.840.1.772806.3.579. 2.593 1975 Unknown [id number] 2.16.840.1.680549.3.579. 2.593 1975 Unknown [id number] 2.16.840.1.393430.3.579. 2.593 1975 Unknown [id number] 2.16.840.1.424780.3.579. 2.593 1975 Unknown [id number] 2.16.840.1.938199.3.579. 2.1259 1975 Unknown [id number] 2.16.840.1.565960.3.579. 2.125 1975 Unknown [id number] 2.16.840.1.304523.3.579. 2.1259 1975 Unknown [id number] 2.16.840.1.779863.3.579. 2.1259 1975 Unknown [id number] 2.16.840.1.589680.3.579. 2.1259 1975 Unknown [id number] 2.16.840.1.454989.3.579. 2.1259 1975 Unknown [id number] 2.16.840.1.863172.3.579. 2.125 1975 Unknown [id number] 2.16.840.1.966644.3.579. 2.1259 1975 Unknown [id number] 2.16.840.1.767183.3.579. 2.1259 1975 Unknown [id number] 2.16.840.1.294195.3.579. 2.1259 1959 Self-pay [id number] 1959 Unknown [id number] 1959 Unknown [id number] 2.16.840.1.491498.19 Unknown [id number] 2.16.840.1.249064.19 Unknown [id number] 2.16.840.1.483937.3.579. 2.531 Unknown [id number] 2.16.840.1.905780.3.579. 2.531 Unknown [id number] 2.16.840.1.854861.3.579. 2.531 Unknown [id number] 2.16.840.1.199551.3.579. 2.531 Unknown [id number] 2.16.840.1.479849.3.579. 2.531 Social History Date Type Detail Facility Tobacco smoking stat [facility] Unknown if ever smoked [place] Sex Assigned At Not on file [place] Start: 04-19-2024 End: 04-11-2025 Sex Assigned At [facility] Start: 06-05-2022 End: 03-13-2023 Tobacco smoking status INIS Never smoked tobacco (finding) [facility] Start: 1975 Sex Assigned At Female [facility] Start: 03-13-2023 Tobacco use and exposure Smokeless tobacco non-user [facility] Start: 07-27-2024 End: 04-11-2025 Alcoholic beverage intake Lifetime non-drinker (finding) [facility] Start: 04-19-2024 End: 04-11-2025 History of Social function [facility] How often to you hav e a drink containing alcohol? Never [facility] How many standard drinks containing alcohol do you have on a typical day? Patient does not drink [facility] Start: 05-02-2023 Alcohol Comment Caffeine: occasional tea [facility] Start: 03-25-2023 Gender identity Identifies as female gender (finding) [facility] Start: 10-08-2023 Sexual orientation Heterosexual (finding) [facility] Start: 08-26-2024 End: 10-15-2024 Sex Female (finding) [facility] Medical Equipment Procedure Code Equipment Code Equipment Origin al Text Equipment Identifier Dates Use as instructed [id number] Start: 06-10-2023 End: 06-09-2024 Goals Date Patient Goal Desired Activity /State Functional Status Date Assessment Result Facility 04-11-2025 Patient Health Quest ionnaire 2 item (PHQ-2) [Reported] [facility] Clinical Notes 05-17-2020 to 04-12-2025 Carol Camacho MA - 09/14/2024 8:45 AM Elizabeth Camacho MA - 08/02/2024 11:00 AM Dar Hudson NP - 07/27/2024 8:20 AM EDT Note Date & Type Note Facility 04-12-2025 Note re [facility] 04-05-2025 Note External Glucose was entered incorrectly in the CMP results from 04/02/25. Correct Glucose was entered separately by clinic staff member. [facility] 04-05-2025 Note res [facility] 04-05-2025 Note Results [facility] 02-02-2025 Note Reviewed poatssium teresa poe and pt's request to switch to 10MEQ tabs with Dr. Monterroso. PO received ok to change to 10MEQ and increase to 30MEQ daily. Called pt notified of change and verified pharmacy. Pt requested refills on MagOx that her pharmacy told her the doctor did not approve. [facility] refilled MagOx. Medication list updated. [facility] 11-24-2024 Note Patient called benigno borrero a urine culture was supposed to be done on 11/12/24. No urine culture was done. Patient states she is still having symptoms of UTI. Patient would like a callback. [facility] 11-12-2024 Note Transplant Clinic Patient : Mandeep [...] recently was seen at the ER in [facility], started on a course of Cipro, [...] flank pain. None today. Will order Ultrasound [place] and transplant kidney. Pt known hx: Chronic [...] 04/23/2024 Endocrine: L (more content not included)... [facility] 11-09-2024 Note Patient called in th is [...] admission. Patient was updated and verbalized understanding. [facility] 10-21-2024 Note Pt was notified of n ew order from Dr. Blanchard by phone to complete Keflex 500mg TID for 1 week. Pt informed and verbalized understanding. RX was sent. [facility] 10-21-2024 Note Noted patient call t o [...] had sepsis and was hospitalized @ [facility] four years ago. She at work today and seems in good humor. [facility] 10-21-2024 Note Per phone order of Kody Mcqueen MD, patient notified via phone call to decrease their medication Myfortic dose twice a day 360 mg , will now be on 360mg twice a day an no need for urology FU at this time. Pt informed by phone and verbalized understanding. [facility] 10-21-2024 Note Pt called wanting to talk to Lu. She has uti sx's with low grade fever, chills, abd pain. She didn't think of this yesterday when she spoke with Lu. She does want to go ahead and get the abx called into [facility] in [facility] 10-20-2024 Note Noted urine culture report showing E coli MDRO from [facility]. Pt reports using BID Methamine after [...] Pt states prior to renal transplant her housekeeping laundry worker prescribed Bactrim for her to prevent UTIs and she wishes that the E Coli was gone from her urine. Verbalized understanding of colonization. Have asked urology clinic [place] staff via [employer] Secure Chat to contact pt for FU with Dr. Blanchard. Will discuss with this MD plan for return visit. [facility] 10-20-2024 Note Faxed stat request [facility] for results of 10/14/24 urine culture. [facility] 10-12-2024 Note Patient called, stat es she is having urinary burning, urgency and cloudy urine. Denies fever. Has a history of frequent UTI's and sees Dr. Blanchard, follow up appt is scheduled next month. Questions if she can get urine culture order sent to local lab at [facility]. . Per Dr. Monterroso, order sent. Reviewed tac level of 3.7, no changes at this time due to possible infection. Patient verbalized understanding. [facility] 09-14-2024 History of Present illness Narrative Images from the original note were not included. Blake Hinojosa, DO Obstetrics and Gynecology Mandeep Puri 1975 09/14/24 [id number] Ultrasound Follow Up Exam Chief Complaint Patient [...] 09/14/24 Time 5:00PM. documented in this encounter [facility] 08-06-2024 Note Patient tac level is 8.2, per Dr Sharla anderson, patient notified to decrease envarsus by 0.5 mg, will now be on 1.5 mg daily of envarsus, repeat level in one week. Patient verbalized understanding. [facility] 08-02-2024 History of Present illness Narrative Images from the original note were not included. Blake Hinojosa, DO Obstetrics and Gynecology Mandeep Puri 1975 08/02/24 [id number] Yearly Wellness Exam Chief Complaint Patient presents [...] 08/02/24 Time 5:00PM. documented in this encounter [facility] 07-27-2024 History of Present illness Narrative Images [...] Active Problem List Diagnosis Benign essential hypertension ([facility]) Fibromyalgia MICHELLE (iron deficiency anemia) RADHA (obstructive sleep apnea) Renal transplant recipient ([facility]) Type 2 diabetes mellitus with diabetic chronic kidney disease ([facility]) Mixed anxiety and depressive disorder Dyslipidemia ([facility]) Gastroesophageal reflux disease Immunosuppressive management encounter following kidney transplant ([facility]) ADPKD (autosomal dominant polycystic kidney disease) Polyarthritis of multiple sites Anxiety Anemia of renal disease NSTEMI (non-ST elevated myocardial infarction) ([facility]) Polycystic kidney disease Secondary hyperparathyroidism ([facility]/H[facility]) Tonsillolith Stage 4 chronic kidney disease ([facility]) Chronic kidney disease, stage 5 ([facility]) Gout Review of Systems Constitutional: [...] Lucero Hudson NP documented in this encounter [facility] 07-09-2024 Note Positive urine cultu re. Per Dr. Blanchard, Macrobid 100 mg BID x 7 days ordered to patient's pharmacy. Pt was informed and verbalized understanding. [facility] 07-07-2024 Note Chief complaint: Rec urrent urinary [...] on file Intimate Partner Violence: Unknown (11/27/2023) [place] Safety & Environment Fear of Current or [...] cyst which she will discuss with her housekeeping laundry worker. At this point we will recommend continuing the methenamine prophylaxis. She does not prove effective can consider lowering the Myfortic. Sree Blanchard MD [facility] 06-15-2024 Note Patient notified of Augmentin Rx sent in to pharmacy for positive urine culture by NORMA Jasso per [employer] secure chat. Patient verbalizes understanding. [facility] 06-10-2024 Note Patient requests uri ne culture order to be refaxed to [facility]. as the hospital is telling her not received. Order promptly refaxed with confirmation received. Pt advised to FU with coordinator and alternative fax number if hospital reports again no receipt of the order. She acknowledged understanding [facility] 06-09-2024 Note Tac level 3.0, Mg 1. [...] Patient requests order to be faxed to [facility]. [facility] 05-19-2024 Note Chief complaint: Rec urrent urinary [...] back after the CT. Sree Blanchard MD [facility] 04-29-2024 Note Patient urine cultur e/susceptible medications [...] prior to urology appointment. Patient verbalized understanding. [facility] 04-27-2024 Note 04/27/24 Chief Complaint Patient presents [...] Txp Referring: Yaneth Muñoz Preferred Pharmacy: [facility] - [place], [place] - [address] [place] [address] [place] [address] [facility] [address] [id number] [place], [place] [address] [facility] [address] [facility] [id number] [facility] [place] - [address] [facility] [address] [facility] [place] [address] Subjective Visit Vitals BP 121/60 (BP Location: [...] Dose Status amLODIPine (Norvasc) 10 mg tablet [id number] Yes Take 1 tablet (10 mg) by mouth in the morning. Aguila Parrish MD Taking Active bumetanide (Bumex) 2 mg tablet [id number] Take 1 tablet (2 mg) by mouth in the morning. Patient not taking: Reported on 11/08/2022 Aguila Parrish MD 10/25/22 2359 docusate sodium (Colace) 100 mg capsule [id number] Take 1 capsule (100 mg) by mouth in the morning and at bedtime. Patient not taking: Reported on 09/01/2023 Paty Ansari NP Active DULoxetine (Cymbalta) [address] capsule [id number] Yes Take 1 capsule every day by oral route. Historical Provider, Taking Active Envarsus XR 1 mg tablet ER [id number] Yes TAKE 3 TABLETS BY MOUTH ONCE DAILY IN THE MORNING. TAKE ALONG WITH 0.75 MG TABLETS DIRECTED FOR TOTAL DOSE UP TO 4.5 MG PER DAY. Patient taking differently: Take 2 mg by mouth in the morning. Aguila Parrish MD Taking Flag for Review famotidine (Pepcid) 20 mg tablet [id number] Yes Take 1 tablet (20 mg) by mouth in the morning. Patient taking differently: Take 20 mg by mouth if needed. Aguila Parrish MD Taking Active febuxostat (Uloric) 40 mg tablet [id number] Take 0.5 tablets every day by oral route. Historical ProviderMD Active ferrous sulfate 325 (65 Fe) MG tablet [id number] Yes Take 65 mg by mouth every other day. Historical Provider, Taking Active fish oil (Thicket-3) 60-90-500 mg capsule [id number] Take 2 capsules (1,000 mg) by mouth in the morning and at bedtime. Patient not taking: Reported on 12/23/2023 Sujit Monterroso MD Active Levemir FlexPen 100 unit/mL (3 mL) pen [id number] INJECT 12 UNITS SUBCUTANEOUS IN AM 30 DAYS Historical ProviderMD Active magnesium oxide (Mag-Ox) 400 mg (241.3 mg magnesium) tablet [id number] Yes TAKE 2 TABLETS BY MOUTH IN THE MORNING AND 2 TABLETS AT BEDTIME Sree Blanchard MD Taking Active mycophenolate (Myfortic) 180 mg EC tablet [id number] Yes Take 4 tablets (720 mg) by mouth in the morning and at bedtime. Aguila Parrish MD Taking Active oxyCODONE-acetaminophen (Percocet) 5-325 mg tablet [id number] Take 1 tablet by mouth every 6 (six) hours if needed for severe pain (8-10 pain score) for up to 20 doses. Patient not taking: Reported on 09/01/2023 Paty Ansari NP Active potassium chloride CR (Klor-Con M20) 20 mEq ER tablet [id number] Yes Take 1 tablet (20 mEq) by mouth in the morning. Do not crush or chew. Andrea Elizondo MD Taking Active pravastatin (Pravachol) 40 mg tablet [id number] Yes Take 1 tablet (40 mg) by mouth at bedtime. Patient taking differently: Take 40 mg by mouth at bedtime. 40 mg 4 times a week. Fri Kevin Raymond MD Taking Active semaglutide (Ozempic) 2 mg/dose (8 mg/3 mL) pen injector [id number] Yes Inject 2 mg under the skin every 7 (seven) days. Historical Provider, Taking Active tacrolimus ER (Envarsus XR) 0.75 mg tablet ER [id number] Yes Take 2 tablets (1.5 mg) by mouth in the morning. Script total 4.5 mg daily Priyanka Villanueva MD Taking Active tacrolimus ER (Envarsus XR) 1 mg tablet ER [id number] Yes Take 3 tablets (3 mg) by mouth in the morning. Script total 4.5 mg daily Priyanka Villanueva MD Taking Active Immunization History Administered Date(s) Administered Ainsley Sars-Cov-2 Vaccination 10/13/2021 Patient Active Problem List Diagnosis Anxiety COVID-19 Depressive disorder Gastroesophageal reflux disease Gout Primary hyper (more content not included)... [facility] 04-23-2024 Note Patient TAC level, 1 0.5, [...] making change in dose. Patient verbalized understanding. [facility] 04-21-2024 Note Patient called, stat es she [...] urine culture to be done, voiced understanding. [facility] 07-30-2022 Evaluation [...] She has gout and follows with a physician assistant primary care. She takes Urolic and denies any recent gout flare Jul, Metabolic acidemia, unspecified (ICD-10 - P19.9) She has metabolic acidosis due to the advanced CKD. Continue oral Sodium Bicarbonate [facility] 09-28-2022 Evaluation note* Encounter Date Diagnosis [...] disease, unspecified CKD stage (ICD-10 - N18.9) [facility]* Encounter Date Diagnosis Assessment Notes Treatment Notes Treatment Clinical Notes May, Pre-op testing (ICD-10 - Z01.818) [facility] 08-25-2022 Evaluation note* Encounter Date Diagnosis [...] will schedule this in the near future. [facility] 07-28-2022 Evaluation note* Encounter Date Diagnosis [...] explained to her the potential need of DOMESTIC CLEANER in future. I discussed with her different options of DOMESTIC CLEANER including PD, HTN renal transplant. I provide [...] stephens s gout and follows with a physician assistant primary care. She takes Urolic and denies any recent gout flare [facility] 07-26-2022 Evaluation note* Encounter Date Diagnosis [...] care provider if no improvement of symptoms. [facility] 05-24-2022 Evaluation note* Encounter Date Diagnosis Assessment Notes Treatment Notes Treatment Clinical Notes February, Screening for colon cancer (ICD-10 - Z12.11) [facility] 03-03-2022 Evaluation note* Encounter Date Diagnosis [...] explained to her the potential need of DOMESTIC CLEANER in future. I discussed with her different options of DOMESTIC CLEANER including PD, HTN renal transplant. I provide [...] She has gout and follows with a physician assistant primary care. She takes Urolic and denies any recent gout flare [facility] 06-25-2021 NotePatient Outreach (NEPHMN) MANDEEP PURI ([id number]) 1975 F Date Time Provider Department 03/30/21 PERRI BARRETT During your visit today, we recorded the following information about you: Allergies As of Date: 03/30/2021 Noted Allergy Reaction ALLOPURINOL 08/02/2019 4 - Hives Date Reviewed: 03/30/2021 Reviewed by: Perri Barrett MD - Fully Assessed Visit Diagnosis:Screening for genitourinary condition [Z13.89] Order(s):URINALYSIS, DIPSTICK ONLY [SQUA] Order #: [id number]. #:[id number] Prescriptions as of 03/30/2021 Sig: DULOXETINE 60 [...] dis*03/30/2021 Encounter Status:Closed by MAXX BAZAN on 04/02/21[facility] 03-30-2021 NoteHNO ID: [id number] Author: Perri Barrett MD Service: ? Author Type: Physician Type: Progress Notes Filed: 03/30/2021 10:25 AM Note Text: Mrs. 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 [facility] general Narrative - Reported * Type Description Date Medical History HTN (hypertension) Medical History Anxiety Medical History polycystic kidneys Medical History COVID 05-17-2020 Surgical History C section Surgical History BREAST REDUCTION Hospitalization History child Hospitalization History KIDNEY INFECTION 07/2019 Hospitalization History COVID AND DEHYDRATION [facility] Other 08-12-2020 History general Narrative - Reported* Type Description Date Medical History HTN (hypertension) Medical History Anxiety Medical History polycystic kidneys Medical History COVID 05-17-2020 Medical History end stage renal disease Surgical History C section Surgical History BREAST REDUCTION Surgical History colonoscopy 04/01/2022 Surgical History wisdom teeth 03/24/2022 Hospitalization History child Hospitalization History KIDNEY INFECTION 07/2019 Hospitalization History COVID AND DEHYDRATION [facility] Other 08-12-2020 History general Narrative - Reported* [...] INFECTION 07/2019 Hospitalization History COVID AND DEHYDRATION [facility] Other 08-12-2020 History general Narrative - Reported* [...] INFECTION 07/2019 Hospitalization History COVID AND DEHYDRATION [facility] Other Evaluation noteNo assessment information available [facility] Work Phone: [facility]No [facility] Other Evaluation note* Diagnosis Onset Date Resolution Status Dysuria acute UTI (urinary tract infection) acute [facility] Work Phone: Evaluation note* Diagnosis [...] [facility] Diagnosis Benign essential hypertension ([facility])- Primary Essential hypertension, benign Renal transplant recipient ([facility]) Immunosuppressive management encounter following kidney transplant ([facility]) Encounter for long-term (current) use of other medications Anemia of renal disease Anemia in chronic kidney disease Iron deficiency anemia, unspecified iron deficiency anemia type Type 2 diabetes mellitus with stage 3a chronic kidney disease, without long-term current use of insulin ([facility]) ([facility]) Dyslipidemia ([facility]) Other and unspecified hyperlipidemia Fibromyalgia Unspecified myalgia and myositis Need for immunization against influenza Need for prophylactic vaccination and inoculation against influenza documented in this encounter [facility] Diagnosis Polycystic kidney disease- Primary Congenital polycystic kidney, unspecified type Anemia of renal disease Anemia in chronic kidney disease Immunosuppressive management encounter following kidney transplant ([facility]) Encounter for long-term (current) use of other medications Renal transplant recipient ([facility]) Type 2 diabetes mellitus with stage 3a chronic kidney disease, without long-term current use of insulin ([facility]) ([facility]) Dyslipidemia ([facility]) Other and unspecified hyperlipidemia documented in this encounter [facility] Diagnosis Benign essential hypertension- Primary Essential hypertension, benign ADPKD (autosomal dominant polycystic kidney disease) Congenital polycystic kidney, autosomal dominant Type 2 diabetes mellitus with stage 3a chronic kidney disease, without long-term current use of insulin ([facility]) Renal transplant recipient ([facility]) Mixed anxiety and depressive disorder Dysthymic disorder Chronic fatigue Other malaise and fatigue Encounter for general health examination Class 1 obesity due to excess calories with serious comorbidity and body mass index (BMI) of 34.0 to 34.9 in adult Fibromyalgia Unspecified myalgia and myositis Low vitamin D level documented in this encounter [facility] Ass[facility] Diagnosis Acute sepsis ([facility])- Primary Acute cystitis without hematuria Acute cystitis Chronic renal failure, stage 4 (severe) ([facility]) Polycystic kidney disease Polycystic kidney, unspecified type Advance Directives No Advanced Directives Records FoundDocuments on File Type Date Recorded Patient 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 Reason Comments Annual Exam Pt is being seen toanastasia ay for her annual physical and managment of her chronic conditions. Pt had lab work done in preparations for todays visit, results and recommendations will be reviewed with them. Fatigue Constipation INFORMATION SOURCE (unrecogn ized section and content) DATE CREATED AUTHOR 08/04/2019 Marielena Castillo [facility] DATE CREATED AUTHOR AUTHOR'S ORGANIZ ATION 04/28/2020 [facility] DATE CREATED AUTHOR AUTHOR'S ORGANIZ ATION 09/12/2020 [facility] DATE CREATED AUTHOR AUTHOR'S ORGANIZ ATION 11/07/2021 [facility] DATE CREATED AUTHOR AUTHOR'S ORGANIZ ATION 02/27/2022 [facility] DATE CREATED AUTHOR AUTHOR'S ORGANIZ ATION 08/04/2022 [facility] DATE CREATED AUTHOR AUTHOR'S ORGANIZ ATION 10/19/2024 [facility] DATE CREATED AUTHOR AUTHOR'S ORGANIZ ATION 04/14/2025 [facility] DATE CREATED AUTHOR AUTHOR'S ORGANIZ ATION 04/16/2025 [facility] Care Teams (unrecognized sec tion [...] March 15, 2024 End: March 15, 2024 District Supervisor Relationship Specialty Start Date End Date Ming Espinoza DO [address] [place] [address] PCP - Medical [place] [employer] 10/06/21 10/05/99 Ming Espinoza DO [address] [place] [address] PCP - General Internal Medicine 05/02/23 District Supervisor Relationship Specialty Start Date End Date Ming Espinoza DO [address] [place] [address] PCP - Medical [place] [employer] 10/06/21 10/05/99 Ming Espinoza DO [address] [place] [address] PCP - General Internal Medicine 05/02/23 District Supervisor Relationship Specialty Start Date End Date Ming Espinoza DO [address] [place] [address] PCP - Medical [place] [employer] 10/06/21 10/05/99 Ming Espinoza DO [address] [place] [address] PCP - General Internal Medicine 05/02/23 District Supervisor Relationship Specialty Start Date End Date Ming Espinoza DO [address] [place] [address] PCP - Medical [place] [employer] 10/06/21 10/05/99 Ming Espinoza DO [address] [place] [address] PCP - General Internal Medicine 05/02/23 Team [...] August 25, 2024 End: August 25, 2024 District Supervisor Relationship Specialty Start Date End Date Ming Espinoza DO [address] [place] [address] PCP - Medical [place] [employer] 10/06/21 10/05/99 Ming Espinoza DO [address] [place] [address] PCP - General Internal Medicine 05/02/23 District Supervisor Relationship Specialty Start Date End Date Ming Espinoza DO [address] [place] [address] PCP - Medical [place] [employer] 10/06/21 10/05/99 Ming Espinoza DO [address] [place] [address] PCP - General Internal Medicine 05/02/23 District Supervisor Relationship Specialty Start Date End Date Ming Espinoza DO [address] [place] [address] PCP - Medical [place] [employer] 10/06/21 10/05/99 Ming Espinoza DO [address] [place] [address] PCP - General Internal Medicine 05/02/23 District Supervisor Relationship Specialty Start Date End Date Ming Espinoza DO [address] [place] [address] PCP - Medical [place] [employer] 10/06/21 10/05/99 Ming Espinoza DO [address] [place] [address] PCP - General Internal Medicine 05/02/23 District Supervisor Relationship Specialty Start Date End Date Ming Espinoza DO [address] [place] [address] PCP - Medical [place] [employer] 10/06/21 10/05/99 Ming Espinoza DO [address] [place] [address] PCP - General Internal Medicine 05/02/23 Team Status: Inactive Member Role Status Dates Ming Espinoza DO Primary Care Provider Active Start: October 14, 2024 End: October 14, 2024 Sujit Monterroso MD Attending Provider Active S tart: October 14, 2024 End: October 14, 2024 District Supervisor Relationship Specialty Start Date End Date Ming Espinoza DO [address] [place] [address] PCP - Medical [place] [employer] 10/06/21 10/05/99 Ming Espinoza DO [address] [place] [address] PCP - General Internal Medicine 05/02/23 District Supervisor Relationship Specialty Start Date End Date Ming Espinoza DO [address] [place] [address] PCP - Medical [place] [employer] 10/06/21 10/05/99 Ming Espinoza DO [address] [place] [address] PCP - General Internal Medicine 05/02/23 District Supervisor Relationship Specialty Start Date End Date Ming EspinozaDO [address] [place] [address] PCP - Medical [place] [employer] 10/06/21 10/05/99 Ming EspinozaDO [address] [place] [address] PCP - General Internal Medicine 05/02/23 Goals [...] BE BASED ON THE PRIMARY CLINICAL RECORDS. [facility] [facility]. provides no warranty or guarantee of the accuracy or completeness of information in this document.
--- OUTSIDE RECORDS SUMMARY | 2025-05-04 07:40 | XMS_ITS | Clinical Summary ---
Author Organization [facility] Address [address] [place] [address] Care Team Providers Care Marker Machine Attendant Name Role Phone Sita Camp Unavailable Ming Triplett MD Primary Care Provider [phone] Patrick Sam MD Unavailable Nelson Davies MD Unavailable Romero Zamarripa CNP Unavailable [phone] Allergies Active Allergy Reactions Criticality Noted Date Comments Allopurinol 07/01/2022 Venlafaxine Hives 09/19/2022 Venlafaxine Hcl 07/10/2021 Other reaction(s): bad side effect Medications DULoxetine (Cymbalta) [address] capsule Take 90 mg by mouth in the morning. Active ferrous sulfate 325 (65 Fe) MG tablet Take 65 mg by mouth every other day. Active docusate sodium (Colace) 100 mg capsuleIndicatio ns:Drug induced constipation Take 1 capsule (100 mg) by mouth in the morning and at bedtime. 60 capsule 2 Active Additional Information Patient not taking.Reported on 11/12/2024 oxyCODONE-acetam inophen (Percocet) 5-325 mg tabletIndication s:Post-op pain Take 1 tablet by mouth every 6 (six) hours if needed for severe pain (8-10 pain score) for up to 20 doses. 20 tablet 2 Active amLODIPine (Norvasc) 10 mg tabletIndication s:Hypertension, unspecified type Take 1 tablet (10 mg) by mouth in the morning. 30 tablet 11 3 Active famotidine (Pepcid) 20 mg tabletIndication s:Kidney transplanted Take 1 tablet (20 mg) by mouth in the morning. 30 tablet 3 Active Additional Information Patient taking differently:20 mg oralAs needed, Reported on 12/25/2022 Envarsus XR 1 mg tablet ERIndications:Ki dney transplanted TAKE 3 TABLETS BY MOUTH ONCE DAILY IN THE MORNING. TAKE ALONG WITH 0.75 MG TABLETS DIRECTED FOR TOTAL DOSE UP TO 4.5 MG PER DAY. 90 tablet 11 3 Active Additional Information Patient taking differently: 1.5 mg oral Daily, Reported on 05/19/2024 semaglutide (Ozempic) 2 mg/dose (8 mg/3 mL) pen injector Inject 2 mg under the skin every 7 (seven) days. Active methenamine hippurate (Hiprex) 1 gram tabletIndication s:Recurrent UTI Take 1 tablet (1 g) by mouth two times daily. 60 tablet 11 4 05/19/20 25 Active pravastatin (Pravachol) 40 mg tabletIndication s:Encounter for aftercare following kidney transplant TAKE 1 TABLET BY MOUTH AT BEDTIME 90 tablet 3 4 Active mycophenolate (Myfortic) 180 mg EC tabletIndication s:Kidney transplanted Take 2 tablets (360 mg) by mouth two times daily. 180 tablet 11 5 Active Envarsus XR 1 mg tablet ERIndications:Ki dney replaced by transplant TAKE 1 TABLET (1 MG) BY MOUTH IN THE MORNING. SCRIPT TOTAL 1.5 MG DAILy 30 tablet 11 5 Active tacrolimus ER (Envarsus XR) 0.75 mg tablet ERIndications:Ki dney replaced by transplant Take 2 tablets (1.5 mg) by mouth in the morning. Script total 1.5 mg daily 180 tablet 11 5 Active potassium chloride CR (Klor-Con M20) 20 mEq ER tabletIndication s:Electrolyte disorder Take 1 tablet (20 mEq) by mouth in the morning. Do not crush or chew. 90 tablet 3 5 02/11/20 26 Active potassium chloride CR (Klor-Con M10) 10 mEq ER tabletIndication s:Electrolyte disorder Take 2 tablets (20 mEq) by mouth in the morning. Do not crush or chew. 180 tablet 3 5 02/11/20 Active potassium chloride CR (Klor-Con M10) 10 mEq ER tabletIndication s:Hypokalemia Take 3 tablets (30 mEq) by mouth in the morning. Do not crush or chew. 90 tablet 11 5 02/03/20 26 Active magnesium oxide (Mag-Ox) 400 mg (241.3 mg magnesium) tabletIndication s:History of kidney transplant Take 2 tablets (800 mg) by mouth two times daily. 360 tablet 1 5 Active Active Problems Problem Noted [...] Department Care Team Description 02/02/2025 Orders Only [facility] Transplant [address] [place] [address] Paulina Walsh, JACKIE History of kidney transplant from Last 3 Months Family History [...] Recorded Patient Health Questionnaire-2 Score 0 11/12/2024 [place] Safety & Environment Answer Date Rec orded [...] Info) Description 05/18/2025 1:00 PM EDT Follow-Up [facility] Transplant [address] [place] [id number] Savzsaloni, Ty, STRADDLE BUGGY OPERATOR [address] [place] [address] Health Maintenance Due Date Last Done Comments [...] 07/24/2024 024, 04/23/2024, 08/26/2023, Additional history exists Influenza Vaccine (#1) 2025 , 10/26/2023, 10/19/2023, Additional history exists Depression Screening 11/12/2025 11/12/2024 Mammogram 08/25/2026 08/25/2024, 07/16/2022 Colonoscopy 04/01/2032 04/01/2022 Colorectal Cancer Screening 04/01/2032 HIB Vaccines Aged Out No longer eligi [...] this topic Medical Devices Explanted Type Area Automobile Rental Representative Device Identifier Shelf Expiration Date Model / Serial / Lot Stent,Ureteral ,Polarultra,5x 12 - [id number] Implanted:Qty: 1 on 09/20/2022 by Aguila Parrish MD at [facility] Explanted:10/06 (Quantity not on file) Stent N/A: Ureter [employer] [id number] 01/16/2024 [id number] / / [id number] Description:Transplant urete r Procedures Procedure Name Priority Date/Time Associated Diagnosis Comments EXT TACROLIMUS LEVEL Routine 04/02/2025 8:16 AM EDT EXT CBC Routine 04/02/2025 8:16 AM EDT EXT COMPREHENSIVE METABOLIC PANEL Routine 04/02/2025 8:16 AM EDT EXT BK VIRUS, DNA, PLASMA, QUANTITATIVE Routine 03/03/2025 7:24 AM EDT EXT TACROLIMUS LEVEL Routine 03/03/2025 7:24 AM EDT EXT CBC Routine 03/03/2025 7:24 AM EDT EXT HEMOGLOBIN A1C Routine 03/03/2025 7: 24 AM EDT EXT CHOLESTEROL, TOTAL Routine 7:24 AM EDT EXT HDL CHOLESTEROL Routine 03/03/2025 7 :24 AM EDT EXT LDL CHOLESTEROL, DIRECT Routine 03/03/2025 7:24 AM EDT EXT TRIGLYCERIDES Routine 03/03/2025 7:2 4 AM EDT HEMOGLOBIN A1C Routine 04/23/2024 7:57 AM EDT Impaired fasting glucose from Last 3 Months or Most Recently Relevant to Health Maintenance Results * External CBC (04/02/2025 8:16 AM EDT) Only the most recent of2 resultswithin the time period is included. External WBC 8.6 External RBC 4.64 External Hematocrit 40 % External Hemoglobin 13.6 g/dL External Platelets 334 K/uL EXT MCV 86.4 fL EXT MCH 29.3 pg EXT MCHC 33.9 g/dL EXT RDW 14.1 % Ext Neutrophils Relative 69.8 % Ext Lymphocytes Relative 20.2 % Ext Monocytes Relative 5.4 % Ext Eosinophils Relative 3.4 % Ext Basophils Relative 0.7 % Blood Venous blood specimen / Unknown 04/02/2025 8:16 AM EDT Historical Provider MD RAMÍREZ EXTERNAL ORDERS Final Result * External Comprehensive metabolic panel (04/02/2025 8:16 AM EDT) External Fasting Glucose 15.7 mg/L External Creatinine, Serum 1.18 mg/mL External BUN 14.0 mg/dL External Potassium 3.2 mmol/L External Sodium, serum 142 mmol/L External CO2, total 24.5 mEq/L External Chloride 105 mmol/L External Calcium 9.3 mg/dL External Albumin 3.8 External ALT 22 U/L External AST 16 U/L Blood Venous blood specimen / Unknown 04/02/2025 8:16 AM EDT Result [facility] Provider MD RAMÍREZ EXTERNAL ORDERS Final Result * External Tacrolimus level (04/02/2025 8:16 AM EDT) Only the most recent of2 resultswithin the time period is included. External Tacrolimus level 5.4 ng/mL Blood Venous blood specimen / Unknown 04/02/2025 8:16 AM EDT Result [facility] Provider MD RAMÍREZ EXTERNAL ORDERS Final Result * External BK virus, DNA, plasma, quantitative (03/03/2025 7:24 AM EDT) External BK Virus,Plasma, DNA, Quant negative IU/mL Blood Venous blood specimen / Unknown 03/03/2025 7:24 AM EDT Result [facility] Historical Provider MD RAMÍREZ EXTERNAL ORDERS Edite d Result - Final * External Triglycerides (03/03/2025 7:24 AM EDT) External Triglycerides 167 mg/dL Blood Venous blood specimen / Unknown 03/03/2025 7:24 AM EDT Result [facility] Historical Provider MD RAMÍREZ EXTERNAL ORDERS Final Result * External LDL cholesterol, direct (03/03/2025 7:24 AM EDT) External LDL cholesterol, direct 33.4 IU/L Blood Venous blood specimen / Unknown 03/03/2025 7:24 AM EDT Historical Provider MD RAMÍREZ EXTERNAL ORDERS Final Result * External Hemoglobin A1c (03/03/2025 7:24 AM EDT) External Hemoglobin A1c 5.5 % Blood Venous blood specimen / Unknown 03/03/2025 7:24 AM EDT Result [facility] Historical Provider MD RAMÍREZ EXTERNAL ORDERS Final Result * External HDL cholesterol (03/03/2025 7:24 AM EDT) External HDL Cholesterol 54 mg/dL Blood Venous blood specimen / Unknown 03/03/2025 7:24 AM EDT Result [facility] Historical Provider MD RAMÍREZ EXTERNAL ORDERS Final Result * External Cholesterol, total (03/03/2025 7:24 AM EDT) External Cholesterol, total 181 mg/dL Blood Venous blood specimen / Unknown 03/03/2025 7:24 AM EDT Result [facility] Historical Provider MD RAMÍREZ EXTERNAL ORDERS Final Result * Hemoglobin A1c (04/23/2024 7:57 AM EDT) Hemoglobin A1C 5.3 4.0 - 6.0 % 04/23/2024 12:23 PM EDT [facility] Estimated Average Glucose 105 mg/dL 04/23/2024 12:23 PM EDT [facility] Blood Venous blood specimen / Unknown Venipuncture / Unknown 04/23/2024 7:57 AM EDT 04/23/2024 7:57 AM EDT Tori Magdaleno MD LAB BLOOD ORDERABLES Final Resul t [facility]) [address] [place] [id number] from Last 3 Months or Most Recently Relevant to Health Maintenance Insurance [address] [id number] [employer] Member Subscriber Plan / Payer (Ef fective 2021-Present) Name:Patsy Julio Relation to Subscriber:Spouse Name:ANGELICA JULIO Date of :1970 Address: [address] [place] [address] Payer ID:[id number] Type:Not on file Address: [place] [phone] [employer] Member Subscriber Plan / Payer (Ef fective 2021-Present) Name:Patsy Julio Relation to Subscriber:Spouse Name:ANGELICA JULIO Date of :1970 Address: [address] [place] [address] Payer ID:[id number] Type:Not on file Address: [place] [phone] Advance Directives * Full Code (Latest Code Status on File) Date Activated Date Inactivated Comments 09/20/2022 4:39 AM 09/23/2022 5:38 PM * Full Code Date Activated Date Inactivated Comments 09/19/2022 7:04 PM 09/20/2022 4:39 AM * Full Code Date Activated Date Inactivated Comments 09/19/2022 6:18 PM 09/19/2022 6:49 PM Care Teams Marker Machine Attendant Relationship Specialty Start Date End Date Ming Triplett MD [address] PCP - General 07/13/22 Yaneth Camp MD [address] [place] [address] Referring Physician 07/08/22 Patrick Sam MD [facility] [facility] [address] [place] [address] Consulting Physician Urology 07/15/22 Nelson Davies MD [address] [place] [address] Consulting Physician Urology 08/12/22 Romero Zamarripa, [employer]ADD[employer]GG[employer] OPERATOR [address] [place] [address] Nurse Practitioner Urology 12/23/23
--- OUTSIDE RECORDS SUMMARY | 2025-05-04 07:40 | XMS_ITS | Encounter Summary ---
Author Organization [facility] Address [address] [place] [address] Care Team Providers Care Supervisor Machine Workers Name Role Phone Ming Triplett DO Unavailable [phone] Ming Triplett DO Primary Care Provider [phone] Encounter Details Date Type Department Care Team (Late st Contact Info) Description 02/18/2023 Abstract [facility] [address] [facility] [address] [place] [phone] Ming Triplett DO [address] [facility] [address] [place] [address] Social History Tobacco Use Types Packs/Day Years [...] Description 10/17/2025 8:30 AM EST Office Visit [facility] Internal [facility] [address] [place] [phone] documented as of this encounter Visit Diagnoses Not on filedocumented in this encounter Care Teams Supervisor Machine Workers Relationship Specialty Start Date End Date Ming Triplett DO [address] [place] [address] PCP - Medical [place] [employer] 10/06/21 10/05/99 Ming Triplett DO [address] [place] [address] PCP - General Internal Medicine 05/02/23 documented as of this encounter
--- OUTSIDE RECORDS SUMMARY | 2025-05-04 07:40 | XMS_ITS | Encounter Summary ---
Author Organization [facility] Address [address] [place] [address] Care Team Providers Care Associate Application Developer Name Role Phone Sita Camp Unavailable Ming Trpilett MD Primary Care Provider [phone] Patrick Sam MD Unavailable Nelson Davies MD Unavailable Romero Zamarripa CNP Unavailable [phone] Reason for Visit * Reason Comments Med Refill Encounter Details Date Type Department Care Team (Late st Contact Info) Description 09/30/2023 Refill [facility] Transplant [address] [place] [address] Aguila Parrish MD [address] [place] [address] Kidney transplanted Social History Tobacco Use Types Packs/Day Years Used Date Smoking Tobacco: Never Smokeless Tobacco: Never Alcohol Use Standard Drinks/Week Comments Not Currently 0 (1 standard drink = 0.6 oz pur e alcohol) PHQ-2 Answer Date Recorded Patient Health Questionnaire-2 Score 0 09/01/2023 Comments No Sex and Gender Information Value [...] Info) Description 05/18/2025 1:00 PM EDT Follow-Up [facility] Transplant [address] [place] [address] Ty Concepcion CNP [address] [place] [id number] documented as of this encounter Visit Diagnoses Diagnosis Kidney transplanted Kidney replaced by transplant documented in this encounter Care Teams Associate Application Developer Relationship Specialty Start Date End Date Ming Triplett MD [address] PCP - General 07/13/22 Yaneth Camp MD [address] [facility] [place] [address] Referring Physician 07/08/22 Patrick Sam MD [address] [place] [address] [address] [place] [address] Consulting Physician Urology 07/15/22 [place] [address] Consulting Physician Urology 08/12/22 Romero Zamarripa CNP [address] [place] [address] Nurse Practitioner Urology 12/23/23 documented as of this encounter
--- OUTSIDE RECORDS SUMMARY | 2025-05-04 07:40 | XMS_ITS | Encounter Summary ---
Author Organization [facility] Address [address] [place] [address] Care Team Providers Care City Tax Auditor Name Role Phone Ming Triplett DO Unavailable [phone] Ming Triplett DO Primary Care Provider [phone] Encounter Details Date Type Department Care Team (Late st Contact Info) Description 02/17/2023 Abstract [facility] [address] [facility] [address] [place] [id number] Ming Triplett DO [address] [facility] [address] [place] [address] Social History Tobacco Use Types Packs/Day Years [...] Visit [facility] [address] [place] [phone] documented as of this encounter Visit Diagnoses Not on filedocumented in this encounter Care Teams City Tax Auditor Relationship Specialty Start Date End Date Ming Triplett DO [address] [place] [address] PCP - Medical [place] [employer] 10/06/21 10/05/99 Ming Triplett DO [address] [place] [address] PCP - General Internal Medicine 05/02/23 documented as of this encounter
[2025-05-04 08:09] LABS: Hematocrit 39.4 % (36.0-48.0); Hemoglobin 13.4 g/dL (12.0-16.0); Immature Granulocytes Abs Auto 0.03 10^3/uL (0.00-0.03); Immature Granulocytes Pct Auto 0.4 % (0.0-0.5); Lymphocytes Absolute Auto 1.5 10^3/uL (1.2-3.8); Mean Corpuscular HGB Conc 34.0 g/dL (29.9-35.2); Mean Corpuscular Hemoglobin 29.4 pg (26.7-34.0); Mean Corpuscular Volume 86.4 fL (81.0-99.0); Platelet Count 337 10^3/uL (150-450); Red Blood Count 4.56 10^6/uL (4.20-5.40); White Blood Count 8.1 10^3/uL (4.0-11.0)
[2025-05-04 08:29] LABS: Alanine Aminotransferase 24 U/L (14-59); Albumin Globulin Ratio 0.9; Albumin Level 3.9 g/dL (3.4-5.0); Alkaline Phosphatase 80 U/L (46-116); Anion Gap 14.4; Aspartate Amino Transferase 19 U/L (15-37); Blood Urea Nitrogen 13.0 mg/dL (7.0-18.0); Calcium 9.4 mg/dL (8.5-10.1); Carbon Dioxide 26.7 mmol/L (21.0-32.0); Chloride 102 mmol/L (98-107); Estimated GFR (African America 60 (>=60 mL/min/1.73m^2); Estimated GFR (Non-African Ame 49 (>=60 mL/min/1.73m^2); Globulin 4.2 g/dL; Glucose 100 mg/dL (74-106); Magnesium 1.8 mg/dL (1.8-2.4); Potassium 3.1 mmol/L (3.5-5.1); Sodium 140 mmol/L (136-145); Total Protein 8.1 g/dL (6.4-8.2); Uric Acid 4.5 mg/dL (2.6-6.0)
[2025-05-07 07:07] LABS: Tacrolimus (FK506), Blood 5.1 ng/mL (5.0-20.0)
== END 2025-05-04 07:34 | disposition home or self-care (01) ==
LOC: LAB 07:36
PROVIDERS: PCP Internal Medicine; Visit Provider Internal Medicine Nephrology
DX: R73.01 Impaired fasting glucose (principal); Z94.0 Kidney transplant status; E78.5 Hyperlipidemia, unspecified; R60.9 Edema, unspecified
CPT/HCPCS: 36415; 80053; 80197; 82248; 83735; 84100; 84550; 85025

== ENCOUNTER 2025-05-30 10:53 | Outpatient (OUT) | payer OTHER, SELFPAY ==
--- OUTSIDE RECORDS SUMMARY | 2025-05-30 10:59 | XMS_ITS | CCD ---
Author Organization [facility] Care Team Providers Care 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 Name Role Phone Ming Espinoza Primary Care Provider [phone] VIDAL MADRIGAL Attending Unavailable MING ESPINOZA Primary Care Unavailable Toni, Yaneth Unavailable Shabbir Jones Unavailable Dipika Stinson Unavailable Jesus Parham Unavailable [phone] DO Ming Espinoza Primary Care Provider MD Shabbir Jones Attending Provider [phone] MD Yaneth Muñoz Attending Provider MD Jesus Parham Attending Provider Estefania Vo Unavailable DO Ming Espinoza Primary Care Provider EB Forman Emergency Provider [phone] DO Blake Hinojosa Attending Provider ANGELAC, DR [...] Unavailable TONI, YANETH Consulting Unavailable DO Alexis Colver Primary Care Provider MD Perri Ceja Attending Provider CECILIA Edwards Attending Provider Ming Espinoza DO Unavailable Ming Espinoza DO Primary Care Provider [phone] DO Alexis Imng Primary Care Provider [phone] MD Jesus Ayala Attending Provider DO Blake Hinojosa Referring Provider [phone] Alexis NAVA Ming Primary Care Provider Jesus Ayala MD Attending Provider Blake Hinojosa DO Referring Provider Blake Hinojosa DO Attending Provider [phone] Sujit Bernal MD Attending Provider [phone] SREE BLANCHARD Referring Unavailable LEO BATRES Attending Unavailable SREE BLANCHARD Attending Unavailable SREE BLANCHARD Attending Unavailable SUJIT BERNAL Referring Unavailable MUNIRA PHAN Attending Unavailable Perri Wong MD Primary Care Provider Alan Setin DO Emergency Provider Ming Espinoza Primary Care Unavailable Blake Hinojosa Admitting Unavailable Blake Hinojosa Attending Unavailable Ming Espinoza Primary Care Unavailable Jesus Ayala Admitting Unavailable Jesus Ayala Attending Unavailable Blake Hinojosa Referring Unavailable Alan Stein Admitting Unavailable Alan Stein Attending Unavailable Perri Wong Primary Care Unavailable Ming Espinoza Primary Care Unavailable Sujit Bernal Admitting Unavailable Sujit Bernal Attending Unavailable Perri Wong MD Primary Care Provider MING ESPINOZA Attending Unavailable MING ESPINOZA Attending Unavailable MING ESPINOZA Referring Unavailable HILARY LUCERO L Attending Unavailable BLAKE HINOJOSA Attending Unavailable BLAKE HINOJOSA Attending Unavailable MING ESPINOZA Attending Unavailable Allergies Allergy Classification Reported Allergen(s) Allergy Type Date of Onset Reaction(s) Facility (20 sources) Allopurinol; Translations: [ALLOPURINOL] Drug Allergy 9 hives, Rash [place], [place] (20 sources) venlafaxine; Translations: [VENLAFAXINE] Drug Allergy 2 Rash, Rash, hives [facility] (20 sources) venlafaxine; Translations: [VENLAFAXINE HCL] Drug Allergy 1 [facility] (1 source) Allopurinol Drug Allergy 5 [facility] Repository Medications Current Medications Medication Drug [...] 12 hrs for 7 days Apr, Active ascorbic acid 500 mg oral capsule (2 sources) Vitamin C Start: 05-27-2025 take 1 capsule by mouth every other day Ascorbic Acid (Vitamin C) 500 MG capsule Indications: Iron deficiency anemia, unspecified iron deficiency anemia type Take 500 mg by mouth every other day 05/27/2025 Active {1 (ascorbic acid 7540 MG / polyethylene glycol 3350 27235 MG / potassium chloride 1200 MG / sodium ascorbate 08965 MG / sodium chloride 3200 MG Powder for Oral Solution) / 1 (polyethylene glycol 3350 619410 MG / potassium chloride 1000 MG / sodium chloride 2000 MG / sodium sulfate 9000 MG Powder for Oral Solution) } Pack [Plenvu] (1 source) Osmotic Laxative, Vitamin C Start: 02-26-2022 Plenvu 140 GM dose 1 pouch at 4pm, dose 2 pouch A & B at 11pm Orally twice a day for 1 days [id number] PCN: [id number] GROUP:[id number] ID:[id number] February, Active cephalexin 500 mg oral capsule (20 sources) Cephalosporin Antibacterial Start: 03-22-2024 End: 07-27-2024 take 1 capsule by mouth twice daily Start: 04-01-2022 End: 06-05-2022 take 1 capsule by mouth four times daily Cephalexin 500 mg Capsule Discontinued 500 MG PO Four times daily April 01, 2022 12:00am June 05, 2022 9:02am Start: 08-05-2019 End: 05-21-2020 take 1 capsule by mouth twice daily Cephalexin (Keflex) 500 mg capsule Discontinued 500 MG PO Twice daily 28 09August 05, 2019 12:00am May 21, 2020 9:38pm Start: 01-20-2019 End: 08-02-2019 take 1 capsule by mouth every eight hours Cephalexin (Keflex) 500 mg capsule Discontinued 500 MG PO Q8H 15 January 20, 2019 12:00am August 02, 2019 5:51pm cetirizine hydrochloride 10 mg oral tablet (14 sources) Histamine-1 Receptor Antagonist Start: 03-15-2024 take 1 tablet by mouth once daily as needed take 1 tablet by denys th once daily as needed ZyrTEC Allergy 10 MG 1 tablet as needed Orally Once a day Active DULoxetine 60 mg delayed release oral capsule (20 sources) Serotonin and Norepinephrine Reuptake Inhibitor Start: 01-19-2019 End: 08-02-2024 take 1 capsule by mouth once daily in the morning End: 05-27-2025 DULoxetine (Cymbalta) [address] capsule Take 30 mg by mouth in the morning and 30 mg before bedtime. Take with 60 MG tablet. 05/27/2025 Discontinued (Therapy completed) DULoxetine HCl ( CYMBALTA PO) Take by mouth 0 Active famotidine 20 mg oral tablet (2 sources) Histamine-2 Receptor Antagonist take 1 tablet by mouth once daily famotidine (Pepcid) 20 MG tablet Take 20 mg by mouth Daily Active ferrous sulfate 325 mg oral tablet (20 sources) Start: 03-15-2024 take 1 tablet by mouth once daily Start: 04-01-2022 End: 03-15-2024 take 1 tablet by mouth every other day Ferrous Sulfate 27 mg iron Tablet Discontinued 27 MG PO Q2D April 01, [...] 2022 7:05am Start: 01-20-2019 End: 08-02-2019 take 1 tablet [...] Start: 03-15-2024 take 2 tablets by mo [facility] in the morning magnesium oxide [...] Discontinued (Therapy completed) Multivitamin (Multiple Vitamins) tablet (5 sources) Start: 03-15-2024 take 1 tablet by mouth once daily Start: 03-15-2024 take 1 tablet by denys [...] a day Active MYCOPHENOLATE (2 sources) Start: take 180 mg by mouth once daily Mycophenolate Sodium Active 180 MG PO Daily March 15, 2024 12:00am Mycophenolate Sodium 180 mg tablet,delayed release (DR/EC) (2 sources) Start: take 1 tablet by mouth once daily Mycophenolate Sodium 180 mg tablet,delayed release (DR/EC) Active 180 MG PO Daily March 14, 2024 11:00pm mycophenolic acid 180 mg delayed release oral tablet (20 sources) Antimetabolite Immunosuppressant Start: take 1 tablet by mouth once daily take 4 tablets by mouth in the m orning mycophenolate (Myfortic) 180 MG EC tablet Take 4 tablets by mouth in the morning and 4 tablets before bedtime. Active microencapsulated potassium chloride 20 meq extended release oral tablet (20 sources) Start: 03-15-2024 Potassium Chloride (Klor-Con M20) 20 mEq tablet,ER particles/crystals (4 sources) Start: 03-15-2024 Potassium Chlo ride (Klor-Con M20) 20 mEq tablet,ER particles/crystals Active 20 MEQ PO Daily March 14, 2024 11:00pm Start: 03-15-2024 Potassium Chlo ride (Klor-Con M20) 20 mEq tablet,ER particles/crystals Active 20 MEQ PO Daily March 15, 2024 12:00am pravastatin sodium 40 mg oral tablet (20 sources) HMG-CoA Reductase Inhibitor Start: 03-15-2024 take 1 tablet by mouth once daily Semaglutide (1 source) Start: 03-15-2024 Semaglutide (Ozempic) 2 [...] complication, without long-term current use of insulin ([facility]) Inject 1 mg under the skin 1 (one) time per week 3 mL 03/23/2024 Active Semaglutide, 2 MG/DOSE, (Ozempic, 2 MG/DOSE,) 8 MG/3ML solution pen-injector (8 sources) Start: 01-03-2025 inject 2 mg by [...] mg / trimethoprim 160 mg oral tablet (5 sources) Dihydrofolate Reductase Inhibitor Antibacterial, Sulfonamide Antimicrobial Start: 03-15-2024 take 1 tablet by mouth twice daily 24 hr tacrolimus 0.75 mg extended release oral tablet (20 sources) Calcineurin Inhibitor Immunosuppressant Start: 09-06-2024 Envarsus XR 0.75 MG tablet ER 09/06/2024 Active Start: 03-15-2024 End: 04-11-2025 Completed/Discontinued Medications Medication Drug Class(es) Dates Sig (Normalized) Sig (Original) acetaminophen 500 mg oral tablet (11 sources) Start: 08-02-2019 End: 08-02-2019 acetaminophen (TYLENOL) tablet 1,000 mg Start: 08-02-2019 take 2 tablets by mouth once d aily as needed for pain amLODIPine 10 mg oral tablet (20 sources) Dihydropyridine Calcium Channel Eliz Start: 08-21-2023 End: 05-27-2025 take 1 tablet by mouth in the morning amLODIPine (Norvasc) 10 MG tablet Indications: Essential hypertension Take 1 tablet (10 mg) by mouth in the morning. 05/27/2025 05/27/2025 Discontinued (Reorder) calcitriol 0.97574 mg oral capsule (10 sources) Vitamin D3 Analog Start: 01-20-2019 End: 08-02-2019 Calcitriol (Rocaltrol) 0.25 mcg Capsule Discontinued 0.25 MCG PO [id number] January 20, 2019 12:00am August 02, 2019 5:53pm calcium carbonate 500 mg chewable tablet (10 sources) Start: 01-19-2019 End: 08-02-2019 take 1 tablet by mouth four times daily as needed for gastroesophageal reflux disease Calcium Carbonate (Tums) 200 mg calcium (500 mg) Tablet,Chewable Discontinued 200 MG PO Four times daily as needed for Heartburn January 19, 2019 12:00am August 02, 2019 5:51pm cefTRIAXone (ROCEPHIN) 1 g in sterile water 10 mL IV syringe (1 source) Start: 08-02-2019 End: 08-02-2019 cefTRIAXone (ROCEPHIN) 1 g in sterile water 10 mL IV syringe ciprofloxacin 250 mg oral tablet (13 sources) Quinolone Antimicrobial Start: 11-05-2024 End: 01-03-2025 [...] 2022 7:03am ergocalciferol 1.25 mg oral capsule (10 sources) Provitamin D2 Compound Start: 01-20-2019 End: 08-02-2019 take 1 capsule by mouth every month Ergocalciferol (Vitamin D2) 50,000 unit capsule Discontinued 81275 UNIT PO every month January 20, 2019 12:00am August 02, 2019 5:53pm febuxostat 40 mg oral tablet (19 sources) Xanthine Oxidase Inhibitor Start: 08-02-2019 End: 03-15-2024 Febuxostat (Uloric) 40 mg Tablet Discontinued 20 MG PO Every morning August 02, 2019 12:00am March 15, 2024 5:37pm take 0.5 tablet by mouth once da larissa Uloric 40 MG 1/2 tablet Orally Once a day Active hydroCHLOROthiazide 12.5 mg / lisinopril 20 mg oral tablet (10 sources) Thiazide Diuretic, Angiotensin Converting Enzyme Inhibitor Start: 01-19-2019 End: 08-05-2019 take 1 tablet by mouth once daily Lisinopril-Hydrochlorothiazide 20-12.5 mg tablet Discontinued 1 TAB PO Daily January 19, [...] PO Ta ke by mouth 0 Active semaglutide (Ozempic, 1 MG/DOSE,) 4 MG/3ML solution pen-injector (20 sources) Start: 11-01-2024 End: 05-27-2025 inject 1 mg by subcutaneous injection every week semaglutide (Ozempic, 1 MG/DOSE,) 4 MG/3ML solution pen-injector Indications: Type 2 diabetes mellitus with other specified complication, without long-term current use of insulin (HCC) INJECT 1 MG UNDER THE SKIN 1 (ONE) TIME PER WEEK 9 mL 3 11/01/2024 05/27/2025 Discontinued (Therapy completed) Start: 11-01-2024 inject 1 mg by subcu [...] PER WEEK 3 mL 3 06/29/2024 Active sodium bicarbonate 650 mg oral tablet (19 sources) Start: 04-01-2022 End: 03-15-2024 take 1 tablet by mouth twice daily Sodium Bicarbonate 650 mg Tablet Discontinued 650 MG PO Twice daily April 01, 2022 12:00am March 15, 2024 5:37pm tiZANidine 4 mg oral tablet (20 sources) Central alpha-2 Adrenergic Agonist Start: 08-31-2024 End: 05-27-2025 take 1 tablet by mouth at bedtime tiZANidine (Zanaflex) 4 MG tablet Take 4 mg by mouth at bedtime 08/31/2024 05/27/2025 Discontinued (Therapy completed) End: 09-14-2024 tiZANidine HCl (ZANAFLEX PO) Take by mouth 09/14/2024 Discontinued tiZANidine HCl ( ZANAFLEX PO) Take by mouth Active Problems Active Problems Problem Classification Problem Date Documented Date Episodic/Chronic Abdominal pain (4 sources) Pelvic and perineal pain; Translations: [Generalized abdominal pain] Onset: 4 Episodic Acute and chronic tonsillitis (20 sources) Amygdalolith; 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)] Chronic Acute and unspecified renal failure (10 sources) Injury of kidney; Translations: [Acute kidney [...] 3 03-15-2024 Episodic Diabetes mellitus with complications (20 sources) Chronic [...] 3 03-04-2023 Chronic Fever of unknown origin (10 sources) Fever; Translations: [Fever, unspecified] 05-22-2020 Episodic Fluid and electrolyte disorders (5 sources) Acidosis; Translations: [Hypokalemia] Onset: 2 Resolved: 2 Episodic Genitourinary congenital anomalies (20 sources) Polycystic kidney disease, adult type; Translations: [Polycystic kidney, adult type] Onset: 1 Resolved: 2 Chronic Genitourinary congenital anomalies (1 source) Multiple renal cysts; Translations: [Polycystic kidney disease] Episodic Genitourinary symptoms and ill-defined conditions (13 sources) Dysuria; Translations: [Dysuria] Onset: 4 01-19-2019 Episodic Hypertension with complications and secondary hypertension (20 sources) Chronic kidney disease due to hypertension; Translations: [Hypertensive chronic kidney disease with stage 1 through stage 4 chronic kidney disease, or unspecified chronic kidney disease] Onset: 1 Resolved: 2 Chronic Immunity disorders (2 sources) Immunosuppression; Translations: [Immunodeficiency, unspecified] 05-27-2025 Chronic Immunizations and screening for infectious disease (2 sources) Needs influenza immunization; Translations: [Encounter for immunization] 10-01-2024 Episodic Intrauterine hypoxia and asphyxia (1 source) Metabolic acidemia, unspecified Episodic Malaise and fatigue (2 sources) Fatigue; Translations: [Chronic fatigue, unspecified] 04-11-2025 Chronic Mood disorders (2 sources) Moderate major depression ; Translations: [Major depressive disorder, single episode, moderate] Onset: 5 05-27-2025 Chronic Nutritional deficiencies (10 sources) Vitamin D deficiency; Translations: [Vitamin D deficiency, unspecified] 01-20-2019 Chronic Osteoarthritis (2 sources) Degenerative joint disease involving multiple joints; Translations: [Primary generalized (osteo)arthritis] Onset: 5 05-27-2025 Chronic Other circulatory disease (7 sources) Acquired arteriovenous fistula aneurysm; Translations: [Arteriovenous fistula, acquired] Chronic Other circulatory disease (1 source) Ecchymosis; Translations: [Hemorrhage, not elsewhere classified] 06-20-2022 Episodic Other circulatory disease (6 sources) Hemorrhage, not elsewhere classified; Translations: [Postoperative ecchymosis] 06-20-2022 Episodic Other connective tissue disease (7 sources) Pain in left arm; Translations: [Pain in left arm] 06-20-2022 Episodic Other connective tissue disease (20 sources) Fibromyalgia; Translations: [Fibromyalgia] Onset: 3 03-04-2023 Episodic Other connective tissue disease (2 sources) H/O: gout; Translations: [Personal history of other diseases of the musculoskeletal system and connective tissue] Onset: 5 05-27-2025 Episodic Other diseases of kidney and ureters (20 sources) Secondary hyperparathyroidism; Translations: [Secondary hyperparathyroidism of renal origin] Onset: 4 01-19-2019 Chronic Other diseases of kidney and ureters (4 sources) Secondary hyperparathyroidism of renal origin; Translations: [SEC HYPERPARATHYROIDISM RENAL ORIGN] Onset: 2 Resolved: 2 Chronic Other female genital disorders (1 source) Pain in female genitalia on intercourse; Translations: [Unspecified dyspareunia] 08-02-2024 Chronic Other inflammatory condition of skin (10 sources) Pruritus of skin; Translations: [Pruritus, unspecified] 08-04-2019 Episodic Other non-traumatic joint disorders (20 sources) Polyarthropathy; Translations: [Polyarthritis, unspecified] Onset: 3 06-10-2023 Chronic Other nutritional; endocrine; and metabolic disorders (5 sources) Obesity caused by energy imbalance; Translations: [Class 1 obesity due to excess calories with serious comorbidity and body mass index (BMI) of 34.0 to 34.9 in adult] Onset: 5 04-11-2025 Chronic Other upper respiratory infections (2 sources) Acute pansinusitis; Translations: [Acute pansinusitis, unspecified] 07-27-2024 Episodic Ovarian cyst (6 sources) Unspecified ovarian cyst, left side; Translations: [Cyst of left ovary] Onset: 2 Episodic Septicemia (except in labor) (11 sources) Sepsis; Translations: [Sepsis due to urinary tract infection] 08-03-2019 Episodic Unclassified (2 sources) Kidney Follow-up; Translations: [Kidney Follow-up] Onset: 4 Urinary tract infections (20 sources) Acute cystitis; Translations: [Urinary tract infectious disease] Onset: 4 05-15-2020 Episodic Past or Other Problems Problem Classification Problem Date Documented Date Episodic/Chronic Acute myocardial infarction (20 sources) Myocardial infarction; Translations: [Non-ST elevation (NSTEMI) myocardial infarction] Onset: 04-16-2024 Resolved: 04-11-2025 08-03-2019 Chronic Diabetes mellitus without complication (20 sources) Impaired fasting glycemia; Translations: [Impaired fasting glucose] Onset: 03-04-2023 Resolved: 03-13-2023 03-13-2023 Episodic Gout and other crystal arthropathies (20 sources) Gout; Translations: [Gout, unspecified] Onset: 12-06-2021 Resolved: 03-13-2023 Chronic Other aftercare (20 sources) Transplant follow-up; Translations: [Other fuel manager (current) drug therapy] Onset: 10-23-2022 06-10-2023 Episodic Other hematologic conditions (1 source) Elevated erythrocyte sedimentation rate; Translations: [Elevated erythrocyte sedimentation rate] Onset: 08-02-2024 Episodic Other nutritional; endocrine; and metabolic disorders (20 sources) Hyperuricemia; Translations: [Hyperuricemia without signs of inflammatory arthritis and tophaceous disease] Onset: 03-04-2023 Resolved: 03-13-2023 01-19-2019 Episodic Other screening for suspected conditions (not mental disorders or infectious disease) (4 sources) Encounter for screening for malignant neoplasm of colon; Translations: [Decreased vitamin D] Onset: 02-26-2022 Resolved: 02-26-2022 Episodic Otitis media and related conditions (1 source) Otitis media, unspecified, bilateral Onset: 04-30-2022 Resolved: 04-30-2022 Episodic Residual codes; unclassified (20 sources) Obstructive sleep apnea syndrome; Translations: [Obstructive sleep apnea (adult) (pediatric)] Onset: 03-04-2023 Resolved: 04-11-2025 03-04-2023 Chronic Results Test Name Value Interpretation Reference Range Facility ALL CBC WITH AUTO DIFFon BASOPHILS ABSOLUTE AUTO 0 [facility] Basophils/100 WBC (Bld) 0.5 % 0.2 - 2.0 % [facility] Eosinophils/100 WBC (Bld) 3.8 % 0.9 - 7.0 % [facility] Erythrocyte distribution width (RBC) [Ratio] 13.9 % 11.0 - 15.0 % [facility] Hematocrit (Bld) [Volume fraction] 39.4 % 36.0 - 48.0 % [facility] Hemoglobin (Bld) [Mass/Vol] 13.4 g/dL 12.0 - 16.0 g/dL [facility] IMMATURE GRANULOCYTES ABS AUTO 0.03 [facility] Immature granulocytes/100 WBC (Bld) 0.4 % 0.0 - 0.5 % [facility] Interpretation and review of laboratory results Abnormal [facility] LYMPHOCYTES ABSOLUTE AUTO 1.5 [facility] Lymphocytes/100 WBC (Bld) 18.3 % Low 20.5 - 60.0 % [facility] MCH (RBC) [Entitic mass] 29.4 pg 26.7 - 34.0 pg [facility] MCHC (RBC) [Mass/Vol] 34 g/dL 29.9 - 35.2 g/dL [facility] MCV (RBC) [Entitic vol] 86.4 fL 81.0 - 99.0 fL [facility] MONOCYTES ABSOLUTE AUTO 0.4 N [facility] Monocytes/100 WBC (Bld) 5.2 % 1.7 - 12.0 % [facility] NEUTROPHILS ABSOLUTE AUTO 5.9 [facility] Neutrophils/100 WBC (Bld) 71.8 % 43.0 - 75.0 % [facility] Platelet mean volume (Bld) [Entitic vol] 8.6 fL Low 9.5 - 13.5 fL [facility] EO # 0.3 [facility] PLT [address] [facility] RBC 4.56 [facility] WBC 8.1 [facility] ALL MAGNESIUMon 04-02-2025 Magnesium [Mass/Vol] 1.8 mg/dL [...] & Sports Medicine ALBUMIN GLOBULIN RATIO 1 [facility] ALP [Catalytic activity/Vol] 90 U/L 46 - 116 U/L [facility] ALT [Catalytic activity/Vol] 22 U/L 14 - 59 U/L [facility] Anion gap [Moles/Vol] 15.7 mmol/L NO [facility] AST [Catalytic activity/Vol] 16 U/L 15 - [...] Medicine Globulin (S) [Mass/Vol] 3.9 g/dL N [facility] Glucose [Mass/Vol] 114 mg/dL High 74 - [...] [facility] EGFR-NON AF ESTONIAN 49 Low >=60 mL/min/1.73m 2 [facility] [...] AUTO DIFFon BASOPHILS ABSOLUTE AUTO 0.1 N [facility] Basophils/100 WBC (Bld) 0.8 % 0.2 [...] [facility] LYMPHOCYTES ABSOLUTE AUTO 1.5 [facility] Lymphocytes/100 WBC (Bld) 20.1 % Low 20.5 [...] Sports Medicine MONOCYTES ABSOLUTE AUTO 0.4 N [facility] Monocytes/100 WBC (Bld) 5.4 % 1.7 [...] # 0.3 [facility] TB PLT [address] [facility] RBC 4.56 [facility] WBC 7.5 [facility] Orders Onlyon 02-02-2025 Orders Only [id number] Antonio Puri i 1975 F Date Provider Department Center 02/02/2025 [id number] LOMAX TXP None Family History Problem Relation Age of Onset Fibromyalgia Mother Heart disease Father Hypertension Sister Polycystic kidney disease Sister Hypertension Brother Polycystic kidney disease Brother Family Status - Relation Status Age at Mother Alive Father Sister Brother [facility] 36on 01-31-2025 36 Patient called into [...] to be sent over upon your approval. [facility] Refillon 01-31-2025 Refill [id number] Antonio Puri i 1975 F Date Provider Department Center 01/31/2025 [facility]WIN None Family History Problem Relation Age of Onset Fibromyalgia Mother Heart disease Father Hypertension Sister Polycystic kidney disease Sister Hypertension Brother Polycystic kidney disease Brother Family Status - Relation Status Age at Mother Alive Father Sister Brother Reason for Visit and Comments: Med Refill [[id number]] Med Management [[id number]] Normal [facility] ALL CBC WITH AUTO DIFFon BASOPHILS ABSOLUTE AUTO 0.1 [facility] Basophils/100 WBC (Bld) 0.7 % 0.2 - 2.0 % [facility] Eosinophils/100 WBC (Bld) 2.7 % 0.9 - 7.0 % [facility] Erythrocyte distribution width (RBC) [Ratio] 14.5 % 11.0 - 15.0 % [facility] Hematocrit (Bld) [Volume fraction] 41.9 % 36.0 - 48.0 % [facility] Hemoglobin (Bld) [Mass/Vol] 13.9 g/dL 12.0 - 16.0 g/dL [facility] IMMATURE GRANULOCYTES ABS AUTO 0.03 [facility] Immature granulocytes/100 WBC (Bld) 0.4 % 0.0 - 0.5 % [facility] Interpretation and review of laboratory results Abnormal [facility] LYMPHOCYTES ABSOLUTE AUTO 1.6 [facility] Lymphocytes/100 WBC (Bld) 19.1 % Low 20.5 - 60.0 % [facility] MCH (RBC) [Entitic mass] 28.7 pg 26.7 - 34.0 pg [facility] MCHC (RBC) [Mass/Vol] 33.2 g/dL 29.9 - 35.2 g/dL [facility] MCV (RBC) [Entitic vol] 86.4 fL 81.0 - 99.0 fL [facility] MONOCYTES ABSOLUTE AUTO 0.6 [facility] Monocytes/100 WBC (Bld) 6.4 % 1.7 - 12.0 % [facility] NEUTROPHILS ABSOLUTE AUTO 6 [facility] Neutrophils/100 WBC (Bld) 70.7 % 43.0 - 75.0 % [facility] Platelet mean volume (Bld) [Entitic vol] 8.6 fL Low 9.5 - 13.5 fL [facility] EO # 0.2 [facility] TB PLT [address] [facility] [facility] RBC 4.85 [facility] WBC 8.5 [facility] Documentationon 12-14-2024 Documentation [id number] Antonio Puri sarath 1975 F Date Provider Department Center 12/14/2024 ANDERSON GOODWINCaridad None Family History Problem Relation Age of Onset Fibromyalgia Mother Heart disease Father Hypertension Sister Polycystic kidney disease Sister Hypertension Brother Polycystic kidney disease Brother Family Status - Relation Status Age at Mother Alive Father Sister Brother Reason for Visit and Comments: Results [95] Normal [facility] ALL CBC WITH AUTO DIFFon BASOPHILS ABSOLUTE AUTO 0 N [facility] Basophils/100 WBC (Bld) 0.6 % 0.2 - 2.0 % [facility] Eosinophils/100 WBC (Bld) 5 % 0.9 - [...] Sports Medicine MONOCYTES ABSOLUTE AUTO 0.4 N [facility] Monocytes/100 WBC (Bld) 5.4 % 1.7 - 12.0 % [facility] NEUTROPHILS ABSOLUTE [facility]O 4.6 [facility] Neutrophils/100 WBC (Bld) 70.8 % 43.0 - 75.0 % [facility] Platelet mean volume (Bld) [Entitic vol] 8.7 fL Low 9.5 - 13.5 fL [facility] EO # 0.3 [facility] PLT 283 [facility] RBC 4.49 [facility] WBC 6.4 [facility] Refillon 11-25-2024 Refill [id number] Antonio Puri i 1975 F Date Provider Department Center 11/25/2024 [id number] JENKINS TXP None Family History Problem Relation Age of Onset Fibromyalgia Mother Heart disease Father Hypertension Sister Polycystic kidney disease Sister Hypertension Brother Polycystic kidney disease Brother Family Status - Relation Status Age at Mother Alive Father Sister Brother [facility] Follow-Upon 11-12-2024 Follow-Up [id number] Antonio Puri i 1975 Date Provider Department Center 11/12/202475687-DWMPHUFLEO BATRES TXP None Family History Problem Relation Age of Onset Fibromyalgia Mother Heart disease Father Hypertension Sister Polycystic kidney disease Sister Hypertension Brother Polycystic kidney disease Brother Family Status - Relation Status Age at Mother Alive Father Sister Brother Level of Service:99411 [place] OFFICE/OUTPATIENT ESTABLISHED MOD MDM 30 MIN Reason for Visit and Comments: Kidney Follow-up [] - Pt has reoccurring uti's x7 months. She is going to ID to be checked. She would like a standing lab order for a ua. [facility] Orders Onlyon 10-21-2024 Orders Only [id number] Antonio Puri i 1975 F Date Provider Department Center 10/21/2024 Jase-LU STEPHENS TXP None Family History Problem Relation Age of Onset Fibromyalgia Mother Heart disease Father Hypertension Sister Polycystic kidney disease Sister Hypertension Brother Polycystic kidney disease Brother Family Status - Relation Status Age at Mother Father Sister Brother [facility] ALL URINALYSISon 10-14-2024 BILIRUBIN URINE Negative NEGATIVE [facility] BLOOD URINE TRACE-I NEGATIVE [facility] Clarity (U) CLEAR CLEAR [facility] Color (U) LT. YELLOW YELLOW [facility] GLUCOSE URINE UA Negative NEGATIVE mg/dL [facility] Interpretation and review of laboratory results Abnormal [facility] Ketones Ql (U) Negative NEGATIVE mg/dL [facility] Leukocyte esterase Test strip Ql (U) LARGE [...] Nom (U) ORGANISM: Escherichia coli (MDRO) (O:ESCCOLMDRO) [place] Count >100,000 Aerobic CODI Charge (NMIC56) - [...] EXTENDED SPECTRUM BETA-LACTAMASE TFG = THYMIDINE-DEPENDENT STRAIN TRERIE = BETA-LACTAMASE POSITIVE IB = INDUCIBLE BETA-LACTAMASE. APPEARS IN PLACE OF 'S' WITH SPECIES KNOWN TO POSSESS INDUCIBLE BETA-LACTAMASES. POTENTIALLY THEY MAY BECOME RESISTANT TO ALL B-LACTAM DRUGS. PERFORMED BY: [facility] [address] [place] [address] PATHOLOGIST [employer] DOM MARIEE M.D. Normal [facility] Comment on above: Performed By: #### C A125 #### [facility] , #### CEA #### [facility] [address] ALL MAGNESIUMon 10-02-2024 Magnesium [Mass/Vol] 1.8 mg/dL 1.8 - 2 .4 mg/dL [facility] ALL PHOSPHOROUSon 10-02-2024 Phosphate [Mass/Vol] 3.9 mg/dL 2.6 - 4 .7 mg/dL [facility] ALL URIC ACIDon 10-02-2024 Urate [Mass/Vol] 4.2 mg/dL 2.6 - 6.0 mg/dL [facility] CMP (CMP) (FOR REMOTE FH C USE)on 10-02-2024 Albumin [Mass/Vol] 3.3 g/dL Low 3.4 - 5.0 g/dL [facility] ALBUMIN GLOBULIN RATIO 0.8 NO [facility] ALP [Catalytic activity/Vol] 84 U/L 46 - 116 U/L [facility] ALT [Catalytic activity/Vol] 13 U/L Low 14 - 59 U/L [facility] Anion gap [Moles/Vol] 14.6 mmol/L NO [facility] AST [Catalytic activity/Vol] 11 U/L Low [...] [Moles/Vol] 25 mmol/L 21.0 - 32.0 mmol/L [facility] Creatinine [Mass/Vol] 1.37 mg/dL High 0.55 - 1.02 mg/dL [facility] GFR/1.73 sq M.predicted CKD-EPI (S/P/Bld) [Vol rate/Area] 50 Low >=60 mL/min/1.73m 2 [facility] Globulin (S) [Mass/Vol] 4.2 g/dL N [facility] Glucose [Mass/Vol] 102 mg/dL 74 - 106 mg/dL [facility] EGFR-NON AF ESTONIAN 41 Low >=60 mL/min/1.73m 2 [facility] [...] AUTO DIFFon BASOPHILS ABSOLUTE AUTO 0 N [facility] Basophils/100 WBC (Bld) 0.3 % 0.2 - [...] Sports Medicine MONOCYTES ABSOLUTE AUTO 0.5 N [facility] Monocytes/100 WBC (Bld) 6.2 % 1.7 - [...] [facility] PLT 337 [facility] RBC 3.96 Low [facility] WBC 7.6 [facility] [...] 3.7 mg/dL 2.6 - 4 .7 mg/dL [facility] ALL URIC ACIDon 08-31-2024 Urate [Mass/Vol] 4 mg/dL 2.6 - 6.0 mg/dL [facility] CMP (CMP) (FOR REMOTE FH C USE)on 08-31-2024 Albumin [Mass/Vol] 3.4 g/dL 3.4 - 5.0 g/dL [facility] ALBUMIN GLOBULIN RATIO 0.8 NO [facility] ALP [Catalytic activity/Vol] 86 U/L 46 - 116 U/L [facility] ALT [Catalytic activity/Vol] 19 U/L 14 - 59 U/L [facility] Anion gap [Moles/Vol] 17.2 mmol/L NO [facility] AST [Catalytic activity/Vol] 11 U/L Low [...] Medicine Globulin (S) [Mass/Vol] 4.2 g/dL N [facility] Glucose [Mass/Vol] 98 mg/dL 74 - 106 [...] Orthopaedics & Sports Medicine [facility] EGFR-NON AF ESTONIAN 42 Low >=60 mL/min/1.73m 2 [facility] [...] TARGET < 7.0 [facility] Panel Informationon 08-[facility] MM screening mammo BI w/CADo n 08-25-2024 MM screening mammo BI w/CAD [facility] [place] [address] [place] [address] Mammography Report Signed Patient: Mandeep Puri MR#: [id number] : 1975 Acct:[id number] Age/Sex: 48 / F ADM Date: 08/25/24 Loc: [place] Room: Type: [facility] Attending Dr: Blake Hinojosa DO Copies [...] Messina Jr., D.O.08/25/2024 3:24 PM Dictation Location: S01 Transcribed By: SALMA 08/25/241523 Dictated By: Evan Messina Jr, DO 08/25/24 1523 Signed By: 08/25/24 1524 Normal [facility] Mammography reportOrdered By : Evan Messina on 08-25-2024 Diagnostic imaging study [facility] [place] [address] [place] [address] Mammography Report Signed Patient: Mandeep Puri MR#: [id number] : 1975 Acct:[id number] Age/Sex: 48 / F ADM Date: 4 Loc: [place] Room: Type: [facility] Attending Dr: Blake Hinojosa DO Copies [...] Messina Jr., D.O.08/25/2024 3:24 PM Dictation Location: DWS01 Transcribed By: SALMA 08/25/241523 Dictated By: Evan Messina Jr, 08/25/24 1523 Signed By: 08/25/24 1524 [facility] [place] 125on 08-03-2024 CANCER ANTIGEN 125 12.9 0.0 - 38.1 [facility] Comment on above: [facility] El ectrochemiluminescence Immunoassay (ECLIA) Values obtained with different assay methods or kits cannot be used interchangeably. Results cannot be interpreted as absolute evidence of the presence or absence of malignant disease. Performed at: [address] [id number] Cattle Shipper: Gabriel Whitman PhD, Phone: [phone] [facility] 24 hour urine albumin/total protein ratio by electrophoresisOrdered By: Jesus Ayala on 08-02-2024 Albumin Elph (24H U) [Mass fraction] Albumin/Protein.total in 24 hour Urine by Electrophoresis . [facility] 24 hour urine gamma globulin /total protein ratio by electrophoresisOrdered By: Jesus Ayala on 08-02-2024 Gamma globulin Elph (24H U) [Mass fraction] Gamma globulin/Protein.total in 24 hour Urine by Electrophoresis . [facility] 24 hour urine protein monocl onal/total protein by electrophoresisOrdered By: Jesus Ayala on 08-02-2024 Protein.monoclonal Elph (24H U) [Mass fraction] Protein.monoclonal/Prote in.total in 24 hour Urine by Electrophoresis Not Observed [facility] Alanine aminotransferase [En zymatic activity/volume] in Serum or PlasmaOrdered By: Jesus Ayala on 08-02-2024 ALT [Catalytic activity/Vol] 11 U/L Normal [facility] Comment on above: Performed By: #### E SR, CMP, CK, CBC, CRP, TSH3, ADDONUAPLUS, T4F #### [facility] [address] #### CAMILLA,URINE, ALDOLASE, SPE, CAMILLA SERUM, UPE RAND #### [facility] , ALT [Catalytic activity/Vol] Alanine aminotransferase [Enzymatic activity/volume] in Serum or Plasma [facility] Albumin [Mass/volume] in Ser um or Plasma by Bromocresol green (BCG) dye binding methoOrdered By: Jesushelio Ayala on 08-02-2024 Albumin BCG dye [Mass/Vol] 4.3 g/dL 3.5-5.7 [facility] Albumin BCG dye [Mass/Vol] Albumin [Mass/volume] in Serum or Plasma by Bromocresol green (BCG) dye binding metho 3.5-5.7 [facility] Aldolaseon 08-02-2024 Aldolase 3.5 U/L Normal 3.3-10.3 [facility] Comment on above: Result Comment: Perf ormed at: CB - [facility] [address] [id number] Cattle Shipper: Gabriel Whitman PhD, Phone: [phone] PERFORMED BY: [place] [address] PATHOLOGIST [employer] ANAHY MCKEE M.D. Performed By: #### C A125 #### [facility] , #### CEA #### [facility] [address] [place] [address] Alkaline phosphatase [Enzyma tic activity/volume] in Serum or PlasmaOrdered By: Jesus Jamie on 08-02-2024 ALP [Catalytic activity/Vol] 87 U/L Normal 34 [facility] Comment on above: Performed By: #### E SR, CMP, CK, CBC, CRP, TSH3, ADDONUAPLUS, T4F #### [facility] [address] [place] [address] #### CAMILLA,URINE, ALDOLASE, SPE, CAMILLA SERUM, UPE RAND #### [facility] , ALP [Catalytic activity/Vol] Alkaline phosphatase [Enzymatic activity/volume] in Serum or Plasma 34-104 [facility] Appearance of UrineOrdered B y: Jesus Gruberrow on 08-02-2024 Appearance (U) Urine appearance Clear [facility] Aspartate aminotransferase [ Enzymatic activity/volume] in Serum or PlasmaOrdered By: Jesus Jamie on 08-02-2024 AST [Catalytic activity/Vol] 13 U/L Normal 13-39 [facility] Comment on above: Performed By: #### E SR, CMP, CK, CBC, CRP, TSH3, ADDONUAPLUS, T4F #### [facility] [address] [place] [address] #### CAMILLA,URINE, ALDOLASE, SPE, CAMILLA SERUM, UPE RAND #### [facility] , AST [Catalytic activity/Vol] Aspartate aminotransferase [Enzymatic activity/volume] in Serum or Plasma [facility] Automated basophil %Ordered By: Jesus Jamie on 08-02-2024 Basophils/100 WBC (Bld) 0.6 % Normal . [facility] Comment on above: Performed By: #### C A125 #### [facility] , #### CEA #### [address] Automated basophil countOrde red By: Jesus Gruberrow on 08-02-2024 Basophils (Bld) [#/Vol] 0.0 10*3/uL Normal 0.0-0.2 [facility] Comment on above: Performed By: #### C A125 #### [facility] , #### CEA #### [address] Automated blood monocyte cou ntOrdered By: Jesus Jamie on 08-02-2024 Monocytes (Bld) [#/Vol] 0.4 10*3/uL Normal 0.0-0.8 [facility] Comment on above: Performed By: #### C A125 #### [facility] , #### CEA #### [address] Automated eosinophil %Ordere d By: Jesus Jamie on 08-02-2024 Eosinophils/100 WBC (Bld) 3.0 % Normal . [facility] Comment on above: Performed By: #### C A125 #### [facility] , #### CEA #### [address] Automated eosinophil countOr dered By: Jesus Ayala on 08-02-2024 Eosinophils (Bld) [#/Vol] 0.2 10*3/uL Normal 0.0-0.45 [facility] Comment on above: Performed By: #### C A125 #### [facility] , #### CEA #### [facility] [address] Automated epithelial cells c ount in urine sediment (number/area)Ordered By: Jesus Ayala on 08-02-2024 Epithelial cells Auto (Urine sed) [#/Area] 5-9 [HPF] High 0-2 [facility] Epithelial cells Auto (Urine sed) [#/Area] Automated epithelial cells count in urine sediment (number/area) High 0-2 [facility] Automated erythrocytes count in urine sediment (number/area)Ordered By: Jesus Ayala on 08-02-2024 RBC Auto (Urine sed) [#/Area] Erythrocytes [#/area] in Urine sediment by Automated count 0-4 [facility] Automated leukocytes count i n urine sediment (number/area)Ordered By: Jesus Ayala on 08-02-2024 WBC Auto (Urine sed) [#/Area] Leukocytes [#/area] in Urine sediment by Automated count 0-4 [facility] Automated monocyte %Ordered By: Jesus Ayala on 08-02-2024 Monocytes/100 WBC (Bld) 4.5 % Normal . F [facility] Comment on above: Performed By: #### C A125 #### [facility] , #### CEA #### [address] Automated neutrophil %Ordere d By: Jesus Ayala on 08-02-2024 Neutrophils/100 WBC (Bld) 76.9 % Normal . [facility] Comment on above: Performed By: #### C A125 #### [facility] , #### CEA #### [place] [address] [place] Bacteria [Presence] in Urine by AutomatedOrdered By: Jesus Ayala on 08-02-2024 Bacteria Auto Ql (U) None seen [HPF] None Seen [facility] Basophils Auto (Bld) [#/Vol] Ordered By: Jesus Ayala on 08-02-2024 Basophils (Bld) [#/Vol] Automated basophil count 0.0-0.2 [facility] Basophils/100 WBC Auto (Bld) Ordered By: Jesus Ayala on 08-02-2024 Basophils/100 WBC (Bld) Automated basophil % . [facility] Bilirubin Test strip Ql (U)O rdered By: Jesus Ayala on 08-02-2024 Bilirubin Ql (U) Negative Negative [facility] Bilirubin Ql (U) Bilirubin.total [Presence] in Urine by Test strip Negative [facility] Bilirubin.total [Mass/volume ] in Serum or PlasmaOrdered By: Jesus Ayala on 08-02-2024 Bilirubin [Mass/Vol] 0.3 mg/dL Normal 0.3-1.0 [facility] Comment on above: Performed By: #### E SR, CMP, CK, CBC, CRP, TSH3, ADDONUAPLUS, T4F #### [facility] [address] #### CAMILLA,URINE, ALDOLASE, SPE, CAMILLA SERUM, UPE RAND #### [facility] , Bilirubin [Mass/Vol] Bilirubin.total [Mass/volume] in Serum or Plasma 0.3-1.0 [facility] C reactive protein [Mass/vol ume] in Serum or PlasmaOrdered By: Jesus Ayala on 08-02-2024 CRP [Mass/Vol] 1.7 mg/dL High 0.0-0.5 [facility] CRP [Mass/Vol] C reactive protein [Mass/volume] in Serum or Plasma High 0.0-0.5 [facility] C-Reactive Proteinon 024 C-Reactive Protein 1.7 mg/dL High 0.0-0.5 [facility] Comment on above: Performed By: #### E SR, CMP, CK, CBC, CRP, TSH3, ADDONUAPLUS, T4F #### [facility] [address] [place] [address] #### CAMILLA,URINE, ALDOLASE, SPE, CAMILLA SERUM, UPE RAND #### [facility] , CARCINOEMBRYONIC ANTIGENon 1 [facility] CEA ser/plasOrdered By: Gustavo leidy Micaela on 08-02-2024 Carcinoembryonic Ag [Mass/Vol] Serum or plasma carcinoembryonic antigen measurement (mass/volume) 0.0-3.0 [facility] Comment on above: Serial tumor marker results determined by assays using different manufacturers or methods may not be comparable.[facility] tapering machine operator and method:[employer] DXI, 2 SITE IMMUNOENZYMATIC SANDWICH ASSAY. Calcium [Mass/volume] in Ser um or PlasmaOrdered By: Jesus Ayala on 08-02-2024 Calcium [Mass/Vol] 9.8 mg/dL Normal 8.6-10.3 [facility] Comment on above: Performed By: #### E SR, CMP, CK, CBC, CRP, TSH3, ADDONUAPLUS, T4F #### [facility] [address] [place] [address] #### CAMILLA,URINE, ALDOLASE, SPE, CAMILLA SERUM, UPE RAND #### [facility] , Calcium [Mass/Vol] Calcium [Mass/volume ] in Serum or Plasma 8.6-10.3 [facility] Cancer Antigen 125on 08-02-2 024 Cancer Antigen 125 12.9 Normal 0.0-38.1 [facility] Comment on above: Result Comment: [employer] [employer] Electrochemiluminescence Immunoassay (ECLIA) Values obtained with different assay methods or kits cannot be used interchangeably. Results cannot be interpreted as absolute evidence of the presence or absence of malignant disease. Performed at: [facility] [address] [id number] Cattle Shipper: Gabriel Whitman PhD, Phone: [phone] PERFORMED BY: [place] [address] PATHOLOGIST [employer] ANAHY MCKEE M.D. Performed By: #### C A125 #### [facility] , #### CEA #### [address] Carbon dioxide, total [Moles /volume] in Serum or PlasmaOrdered By: Jesus Ayala on 08-02-2024 CO2 [Moles/Vol] 24.6 mmol/L Normal 21.0-31.0 [facility] Comment on above: Performed By: #### E SR, CMP, CK, CBC, CRP, TSH3, ADDONUAPLUS, T4F #### [facility] [address] [place] [address] #### CAMILLA,URINE, ALDOLASE, SPE, CAMILLA SERUM, UPE RAND #### [facility] , CO2 [Moles/Vol] Carbon dioxide, tota l [Moles/volume] in Serum or Plasma 21.0-31.0 [facility] Chloride [Moles/volume] in S aislinn or PlasmaOrdered By: Jesus Ayala on 08-02-2024 Chloride [Moles/Vol] 105 mmol/L Normal [address] [place] [address] Comment on above: Performed By: #### E SR, CMP, CK, CBC, CRP, TSH3, ADDONUAPLUS, T4F #### [facility] [address] [place] [address] #### CAMILLA,URINE, ALDOLASE, SPE, CAMILLA SERUM, UPE RAND #### [facility] , Chloride [Moles/Vol] Chloride [Moles/vol ume] in Serum or Plasma 98-107 [facility] Color Auto (U)Ordered By: Chan Ayala on 08-02-2024 Color (U) Color of Urine by Auto Yellow [facility] Color of Urine by AutoOrdere d By: Jesus Ayala on 08-02-2024 Color (U) Light-yellow Normal Yellow [facility] Comment on above: Order Comment: Name Collection Type:: Clean-Voided Midstream Performed By: #### E SR, CMP, CK, CBC, CRP, TSH3, ADDONUAPLUS, T4F #### [address] #### CAMILLA,URINE, ALDOLASE, SPE, CAMILLA SERUM, UPE RAND #### [facility] , Complete Blood Count Auto Di ffon 08-02-2024 Mean Corpuscular HGB Conc 33.5 g/dL Normal 32.0-35.0 [facility] Comment on above: Performed By: #### C A125 #### [facility] , #### CEA #### [address] NRBC% 0.1 /100{WBC} Normal 0-0.5 [facility] Comment on above: Performed By: #### C A125 #### [facility] , #### CEA #### [address] Comprehensive Metabolic Pane jonathan 08-02-2024 Albumin [Mass/Vol] 4.3 g/dL Normal 3.5-5.7 [facility] Comment on above: Performed By: #### E SR, CMP, CK, CBC, CRP, TSH3, ADDONUAPLUS, T4F #### [address] #### CAMILLA,URINE, ALDOLASE, SPE, CAMILLA SERUM, UPE RAND #### [facility] , GFR/1.73 sq M.predicted MDRD (S/P/Bld) [Vol rate/Area] mL/min/{1.73_m2} Normal [facility] Comment on above: Performed By: #### E SR, CMP, CK, CBC, CRP, TSH3, ADDONUAPLUS, T4F #### [address] #### CAMILLA,URINE, ALDOLASE, SPE, CAMILLA SERUM, UPE RAND #### [facility] , Creatine kinase [Enzymatic a ctivity/volume] in Serum or PlasmaOrdered By: Jesus Ayala on 08-02-2024 CK [Catalytic activity/Vol] 39 U/L Normal [facility] Comment on above: Result Comment: PERF ORMED BY: [place] [address] PATHOLOGIST [employer] ANAHY MCKEE M.D. Performed By: #### E SR, CMP, CK, CBC, CRP, TSH3, ADDONUAPLUS, T4F #### [facility] [address] [place] [address] #### CAMILLA,URINE, ALDOLASE, SPE, CAMILLA SERUM, UPE RAND #### [facility] , CK [Catalytic activity/Vol] Creatine kinase [Enzymatic activity/volume] in Serum or Plasma [facility] Creatinine [Mass/volume] in Serum or PlasmaOrdered By: Jesus Ayala on 08-02-2024 Creatinine [Mass/Vol] 1.10 mg/dL Normal 0.60-1.20 [facility] Comment on above: Performed By: #### E SR, CMP, CK, CBC, CRP, TSH3, ADDONUAPLUS, T4F #### [facility] [address] [place] [address] #### CAMILLA,URINE, ALDOLASE, SPE, CAMILLA SERUM, UPE RAND #### [facility] , Creatinine [Mass/Vol] Creatinine [Mass/v olume] in Serum or Plasma 0.60-1.20 [facility] Dipstick and Microscopicon 1 Bacteria,Urine None Seen Normal None Seen [facility] Comment on above: Order Comment: Name Collection Type:: Clean-Voided Midstream Performed By: #### E SR, CMP, CK, CBC, CRP, TSH3, ADDONUAPLUS, T4F #### [place] [address] [place] #### CAMILLA,URINE, ALDOLASE, SPE, CAMILLA SERUM, UPE RAND #### [facility] , Bilirubin,Urine Negative Normal Negative [facility] Comment on above: Order Comment: Name Collection Type:: Clean-Voided Midstream Performed By: #### E SR, CMP, CK, CBC, CRP, TSH3, ADDONUAPLUS, T4F #### [address] #### CAMILLA,URINE, ALDOLASE, SPE, CAMILLA SERUM, UPE RAND #### [facility] , Glucose Ql (U) 50 mg/dL High Normal [facility] Comment on above: Order Comment: Name Collection Type:: Clean-Voided Midstream Performed By: #### E SR, CMP, CK, CBC, CRP, TSH3, ADDONUAPLUS, T4F #### [address] #### CAMILLA,URINE, ALDOLASE, SPE, CAMILLA SERUM, UPE RAND #### [facility] , Hyaline Casts,Urine 0-8 Normal 0-8 [facility] Comment on above: Order Comment: Name Collection Type:: Clean-Voided Midstream Result Comment: PERF ORMED BY: [place] [address] PATHOLOGIST [employer] ANAHY MCKEE M.D. Performed By: #### E SR, CMP, CK, CBC, CRP, TSH3, ADDONUAPLUS, T4F #### [address] #### CAMILLA,URINE, ALDOLASE, SPE, CAMILLA SERUM, UPE RAND #### [facility] , Nitrite,Urine Negative Normal Negative [facility] Comment on above: Order Comment: Name Collection Type:: Clean-Voided Midstream Performed By: #### E SR, CMP, CK, CBC, CRP, TSH3, ADDONUAPLUS, T4F #### [address] #### CAMILLA,URINE, ALDOLASE, SPE, CAMILLA SERUM, UPE RAND #### [facility] , Occult Blood,Urine Negative Normal Negative [facility] Comment on above: Order Comment: Name Collection Type:: Clean-Voided Midstream Performed By: #### E SR, CMP, CK, CBC, CRP, TSH3, ADDONUAPLUS, T4F #### [address] #### CAMILLA,URINE, ALDOLASE, SPE, CAMILLA SERUM, UPE RAND #### [facility] , Protein,Urine Negative Normal Negative [facility] Comment on above: Order Comment: Name Collection Type:: Clean-Voided Midstream Performed By: #### E SR, CMP, CK, CBC, CRP, TSH3, ADDONUAPLUS, T4F #### [address] #### CAMILLA,URINE, ALDOLASE, SPE, CAMILLA SERUM, UPE RAND #### [facility] , RBC,Urine 3-4 Normal 0-4 [facility] Comment on above: Order Comment: Name Collection Type:: Clean-Voided Midstream Performed By: #### E SR, CMP, CK, CBC, CRP, TSH3, ADDONUAPLUS, T4F #### [address] #### CAMILLA,URINE, ALDOLASE, SPE, CAMILLA SERUM, UPE RAND #### [facility] , Specificy [place],Urine 1.013 Normal 1.001-1.030 [facility] Comment on above: Order Comment: Name Collection Type:: Clean-Voided Midstream Performed By: #### E SR, CMP, CK, CBC, CRP, TSH3, ADDONUAPLUS, T4F #### [address] #### CAMILLA,URINE, ALDOLASE, SPE, CAMILLA SERUM, UPE RAND #### [facility] , Squamous Epithelial Cell,Urine 5-9 High 0-2 [facility] Comment on above: Order Comment: Name Collection Type:: Clean-Voided Midstream Performed By: #### E SR, CMP, CK, CBC, CRP, TSH3, ADDONUAPLUS, T4F #### [address] #### CAMILLA,URINE, ALDOLASE, SPE, CAMILLA SERUM, UPE RAND #### [facility] , Urobilinogen,Urine Normal Normal Normal [facility] Comment on above: Order Comment: Name Collection Type:: Clean-Voided Midstream Performed By: #### E SR, CMP, CK, CBC, CRP, TSH3, ADDONUAPLUS, T4F #### [address] #### CAMILLA,URINE, ALDOLASE, SPE, CAMILLA SERUM, UPE RAND #### [facility] , WBC,Urine 3-4 Normal 0-4 [facility] Comment on above: Order Comment: Name Collection Type:: Clean-Voided Midstream Performed By: #### E SR, CMP, CK, CBC, CRP, TSH3, ADDONUAPLUS, T4F #### [facility] [address] [place] [address] #### CAMILLA,URINE, ALDOLASE, SPE, CAMILLA SERUM, UPE RAND #### [facility] , Eosinophils Auto (Bld) [#/Vo l]Ordered By: Jesus Ayala on 08-02-2024 Eosinophils (Bld) [#/Vol] Automated eosinophil count 0.0-0.45 [facility] Eosinophils/100 WBC Auto (Bl d)Ordered By: Jesus Ayala on 08-02-2024 Eosinophils/100 WBC (Bld) Automated eosinophil % . [facility] Erythrocyte Sedimentation Ra mathieu 08-02-2024 ESR (Bld) [Velocity] 73 mm/h High 0-19 [facility] Comment on above: Result Comment: PERF ORMED BY: [place] [address] PATHOLOGIST [employer] ANAYH MCKEE M.D. Performed By: #### C A125 #### [facility] , #### CEA #### [address] Erythrocyte distribution wid th Auto (RBC) [Ratio]Ordered By: Jesushelio Ayala on 08-02-2024 Erythrocyte distribution width (RBC) [Ratio] Erythrocyte distribution width [Ratio] by Automated count High 11.9-15.3 [facility] Erythrocyte distribution wid th [Ratio] by Automated countOrdered By: Jesus Ayala on 08-02-2024 Erythrocyte distribution width (RBC) [Ratio] 15.7 % High 11.9-15.3 [facility] Comment on above: Performed By: #### C A125 #### [facility] , #### CEA #### [address] Erythrocyte sedimentation ra te by Photometric methodOrdered By: Jesus Ayala on 08-02-2024 ESR Photometric method (Bld) [Velocity] 73 mm/hr High 0-19 [facility] ESR Photometric method (Bld) [Velocity] Erythrocyte sedimentation rate by Photometric method High 0-19 [facility] Erythrocytes [#/area] in Uri ne sediment by Automated countOrdered By: Jesus Ayala on 08-02-2024 RBC Auto (Urine sed) [#/Area] 3-4 [HPF] 0-4 [facility] Erythrocytes [#/volume] in B lood by Automated countOrdered By: Jesus Ayala on 08-02-2024 RBC (Bld) [#/Vol] 4.37 10*6/uL Normal 3.60-5.00 [facility] Comment on above: Performed By: #### C A125 #### [facility] , #### CEA #### [address] Globulin Calc (S) [Mass/Vol] Ordered By: Jesus Ayala on 08-02-2024 Globulin (S) [Mass/Vol] Serum globulin measurement by calculation (mass/volume) [facility] Glucose [Mass/volume] in Ser um or PlasmaOrdered By: Jesus Ayala on 08-02-2024 Glucose [Mass/Vol] 146 mg/dL [facility] 70-100 [facility] Comment on above: ADA recommended refe rence rangeRandom Glucose Reference Range is dependent on time and content of last meal. Glucose of more than 200 mg/dL in a nonstressed, ambulatory subject supports the diagnosis of Diabetes Mellitus. Result Comment: [place] om Glucose Reference Range is dependent on time and content of last meal. Glucose of more than 200 mg/dL in a nonstressed, ambulatory subject supports the diagnosis of Diabetes Mellitus. ADA recommended reference range Performed By: #### E SR, CMP, CK, CBC, CRP, TSH3, ADDONUAPLUS, T4F #### [address] #### CAMILLA,URINE, ALDOLASE, SPE, CAMILLA SERUM, UPE RAND #### [facility] , Glucose [Mass/Vol] Glucose [Mass/volume ] in Serum or Plasma [facility] 70-100 [facility] Comment on above: ADA recommended refe rence rangeRandom Glucose Reference Range is dependent on time and content of last meal. Glucose of more than 200 mg/dL in a nonstressed, ambulatory subject supports the diagnosis of Diabetes Mellitus. Glucose [Mass/volume] in Uri ne by Test stripOrdered By: Jesus Ayala on 08-02-2024 Glucose Test strip (U) [Mass/Vol] 50 mg/dL [facility] Normal [facility] Glucose Test strip (U) [Mass/Vol] Glucose [Mass/volume] in Urine by Test strip [facility] Hematocrit Auto (Bld) [Volum e fraction]Ordered By: Jesus Ayala on 08-02-2024 Hematocrit (Bld) [Volume fraction] Hematocrit [Volume Fraction] of Blood by Automated count 34.0-46.4 [facility] Hematocrit [Volume Fraction] of Blood by Automated countOrdered By: Jesus Ayala on 08-02-2024 Hematocrit (Bld) [Volume fraction] 37.0 % Normal 34.0-46.4 [facility] Comment on above: Performed By: #### C A125 #### [facility] , #### CEA #### [address] Hemoglobin Test strip Ql (U) Ordered By: Jesus Gruberrow on 08-02-2024 Hemoglobin Ql (U) Negative Negative [facility] Hemoglobin Ql (U) Hemoglobin [Presence ] in Urine by Test strip Negative [facility] Hemoglobin [Mass/volume] in BloodOrdered By: Jesus Gruberrow on 08-02-2024 Hemoglobin (Bld) [Mass/Vol] 12.4 g/dL Normal 11.8-15.4 [facility] Comment on above: Performed By: #### C A125 #### [facility] , #### CEA #### [address] Hemoglobin (Bld) [Mass/Vol] Hemoglobin [Mass/volume] in Blood 11.8-15.4 [facility] Immunofixation for UrineOrde red By: Jesus Ayala on 08-02-2024 Interpretation Immunofixation (U) [Interp] Immunofixation for Urine . [facility] Comment on above: No monoclonality det ected.Performed at: [facility] [address] [id number] Director: Gabriel Whitman PhD, Phone: [phone] Immunofixation, (CAMILLA), Urine on 08-02-2024 Immunofixation, (CAMILLA), Urine Comment Normal . [facility] Comment on above: Result Comment: No m onoclonality detected. Performed at: [facility] [address] [id number] Cattle Shipper: Gabriel Whitman PhD, Phone: [phone] Performed By: #### C A125 #### [facility] , #### CEA #### [place] [address] [place] Immunofixation,Serumon 08-02 Immunofixation, Serum Comment Normal . [facility] Comment on above: Result Comment: No m onoclonality detected. Performed By: #### C A125 #### [facility] , #### CEA #### [address] Immunoglobulin A, Serum 136 mg/dL Normal 87-352 [facility] Comment on above: Performed By: #### C A125 #### [facility] , #### CEA #### [address] Immunoglobulin G 1357 mg/dL Normal [id number] [facility] Comment on above: Performed By: #### C A125 #### [facility] , #### CEA #### [place] [address] [place] Immunoglobulin M, Serum 94 mg/dL Normal 26-217 [facility] Comment on above: Result Comment: Perf ormed at: - [facility] [place] [address] Cattle Shipper: Gabriel Whitman PhD, Phone: [phone] Performed By: #### C A125 #### [facility] , #### CEA #### [address] Ketones Test strip Ql (U)Ord ered By: Jesus Ayala on 08-02-2024 Ketones Ql (U) Ketones [Presence] i n Urine by Test strip Negative [facility] Ketones [Presence] in Urine by Test stripOrdered By: Jesus Ayala on 08-02-2024 Ketones Ql (U) Negative Normal Negative [facility] Comment on above: Order Comment: Name Collection Type:: Clean-Voided Midstream Performed By: #### E SR, CMP, CK, CBC, CRP, TSH3, ADDONUAPLUS, T4F #### [facility] [address] [place] [address] [place] #### CAMILLA,URINE, ALDOLASE, SPE, CAMILLA SERUM, UPE RAND #### [facility] , Laboratory - UrinalysisOrder ed By: Jesus Ayala on 08-02-2024 Hyaline casts LM Ql (Urine sed) 0-8 [LPF] 0-8 [facility] Leukocyte esterase [Presence ] in Urine by Test stripOrdered By: Jesus Ayala on 08-02-2024 Leukocyte esterase Test strip Ql (U) Negative Normal Negative [facility] Comment on above: Order Comment: Name Collection Type:: Clean-Voided Midstream Performed By: #### E SR, CMP, CK, CBC, CRP, TSH3, ADDONUAPLUS, T4F #### [facility] [address] #### CAMILLA,URINE, ALDOLASE, SPE, CAMILLA SERUM, UPE RAND #### [facility] , Leukocyte esterase Test strip Ql (U) Leukocyte esterase [Presence] in Urine by Test strip Negative [facility] Leukocytes [#/area] in Urine sediment by Automated countOrdered By: Jesus Ayala on 08-02-2024 WBC Auto (Urine sed) [#/Area] 3-4 [HPF] 0-4 [facility] Leukocytes [#/volume] correc noah for nucleated erythrocytes in Blood by Automated counOrdered By: Jesus Ayala on 08-02-2024 WBC corrected for nucl RBC Auto (Bld) [#/Vol] 7.8 10*3/uL 3.8-11.6 [facility] WBC corrected for nucl RBC Auto (Bld) [#/Vol] Leukocytes [#/volume] corrected for nucleated erythrocytes in Blood by Automated coun 3.8-11.6 [facility] Leukocytes [#/volume] in Blo od by Automated countOrdered By: Jesus Ayala on 08-02-2024 WBC (Bld) [#/Vol] 7.8 10*3/uL Normal 3.8-11.6 [facility] Comment on above: Performed By: #### C A125 #### [facility] , #### CEA #### [address] Lymphocytes Auto (Bld) [#/Vo l]Ordered By: Jesus Gruberrow on 08-02-2024 Lymphocytes (Bld) [#/Vol] Lymphocytes [#/volume] in Blood by Automated count 1.00-4.8 [facility] Lymphocytes [#/volume] in Bl ood by Automated countOrdered By: Jesus Ayala on 08-02-2024 Lymphocytes (Bld) [#/Vol] 1.2 10*3/uL Normal 1.00-4.8 [facility] Comment on above: Performed By: #### C A125 #### [facility] , #### CEA #### [address] Lymphocytes/100 WBC Auto (Bl d)Ordered By: Jesus Gruberrow on 08-02-2024 Lymphocytes/100 WBC (Bld) Lymphocytes/100 leukocytes in Blood by Automated count . [facility] Lymphocytes/100 leukocytes i n Blood by Automated countOrdered By: Jesus Gruberrow on 08-02-2024 Lymphocytes/100 WBC (Bld) 15.0 % Normal . [facility] Comment on above: Performed By: #### C A125 #### [facility] , #### CEA #### [address] MCH Auto (RBC) [Entitic mass ]Ordered By: Jesus Gruberrow on 08-02-2024 MCH (RBC) [Entitic mass] MCH [Entitic mass] by Automated count 24.7-34.3 [facility] MCH [Entitic mass] by Automa noah countOrdered By: Jesus Gruberrow on 08-02-2024 MCH (RBC) [Entitic mass] 28.3 pg Normal 24.7-34.3 [facility] Comment on above: Performed By: #### C A125 #### [facility] , #### CEA #### [address] MCHC Auto (RBC) [Mass/Vol]Or dered By: Jesus Ayala on 08-02-2024 MCHC (RBC) [Mass/Vol] 33.5 g/dL 32.0-35.0 [facility] MCHC (RBC) [Mass/Vol] MCHC [Mass/volume] by Automated count 32.0-35.0 [facility] MCV Auto (RBC) [Entitic vol] Ordered By: Jesus Ayala on 08-02-2024 MCV (RBC) [Entitic vol] MCV [Entitic vol ume] by Automated count 80-100 [facility] MCV [Entitic volume] by Auto mated countOrdered By: Jesus Ayala on 08-02-2024 MCV (RBC) [Entitic vol] 84.6 fL Normal 80-100 [facility] Comment on above: Performed By: #### C A125 #### [facility] , #### CEA #### [facility] [address] Monocytes Auto (Bld) [#/Vol] Ordered By: Jesus Ayala on 08-02-2024 Monocytes (Bld) [#/Vol] Automated blood monocyte count 0.0-0.8 [facility] Monocytes/100 WBC Auto (Bld) Ordered By: Jesus Ayala on 08-02-2024 Monocytes/100 WBC (Bld) Automated monocyte % . [facility] Neutrophils Auto (Bld) [#/Vo l]Ordered By: Jesus Ayala on 08-02-2024 Neutrophils (Bld) [#/Vol] Neutrophils [#/volume] in Blood by Automated count 1.8-7.7 [facility] Neutrophils [#/volume] in Bl ood by Automated countOrdered By: Jesus Ayala on 08-02-2024 Neutrophils (Bld) [#/Vol] 6.0 10*3/uL Normal 1.8-7.7 [facility] Comment on above: Performed By: #### C A125 #### [facility] , #### CEA #### [facility] [address] Neutrophils/100 WBC Auto (Bl d)Ordered By: Jesus Ayala on 08-02-2024 Neutrophils/100 WBC (Bld) Automated neutrophil % . [facility] Nitrite Test strip Ql (U)Ord ered By: Jesus Ayala on 08-02-2024 Nitrite Ql (U) Negative Negative [facility] Nitrite Ql (U) Nitrite [Presence] i n Urine by Test strip Negative [facility] No Panel InformationOrdered By: Jesus Ayala on 08-02-2024 Estimated GFR (CKD-EPI) > 60.0 mL/Min [facility] Creatinine Clearance (Chem N/A [facility] Protein Electrophoresis M-Maury Not observed g/dL Not Observed [facility] Protein Electrophoresis Note Comment . [facility] Comment on above: Protein electrophore sis scan will follow via computer,mail, or shift supervisor delivery.Performed at: [place] [id number] Director: Gabriel Whitman PhD, Phone: [phone] Urine Random Prot Electrophor Note Comment . [facility] Comment on above: Protein electrophore sis scan will follow via computer,mail, or shift supervisor delivery. Nucleated erythrocytes [Pres ence] in Blood by Automated countOrdered By: Jesus Ayala on 08-02-2024 Nucleated RBC Auto Ql (Bld) 0.1 /100{WBC} 0-0.5 [facility] Nucleated RBC Auto Ql (Bld) Nucleated erythrocytes [Presence] in Blood by Automated count 0-0.5 [facility] Platelet mean volume Auto (B ld) [Entitic vol]Ordered By: Jesus Ayala on 08-02-2024 Platelet mean volume (Bld) [Entitic vol] Platelet mean volume [Entitic volume] in Blood by Automated count 6.3-10.7 [facility] Platelet mean volume [Entiti c volume] in Blood by Automated countOrdered By: Jesus Ayala on 08-02-2024 Platelet mean volume (Bld) [Entitic vol] 6.6 fL Normal 6.3-10.7 [facility] Comment on above: Performed By: #### C A125 #### [facility] , #### CEA #### [facility] [address] [place] [address] Platelets Auto (Bld) [#/Vol] Ordered By: Jesus Ayala on 08-02-2024 Platelets (Bld) [#/Vol] Platelets [#/vol ume] in Blood by Automated count 150-450 [facility] Platelets [#/volume] in Bloo d by Automated countOrdered By: Jesus Ayala on 08-02-2024 Platelets (Bld) [#/Vol] 439 10*3/uL Normal 150-450 [facility] Comment on above: Performed By: #### C A125 #### [facility] , #### CEA #### [facility] [address] [place] [address] Potassium [Moles/volume] in Serum or PlasmaOrdered By: Jesus Ayala on 08-02-2024 Potassium [Moles/Vol] 3.8 mmol/L Normal 3.5-5.1 [facility] Comment on above: Performed By: #### E SR, CMP, CK, CBC, CRP, TSH3, ADDONUAPLUS, T4F #### [facility] [address] [place] [address] #### CAMILLA,URINE, ALDOLASE, SPE, CAMILLA SERUM, UPE RAND #### [facility] , Potassium [Moles/Vol] Potassium [Moles/v olume] in Serum or Plasma 3.5-5.1 [facility] Protein Electro, Random Urin yonis 08-02-2024 Albumin, Urine 36.1 % Normal . [facility] Comment on above: Performed By: #### C A125 #### [facility] , #### CEA #### [facility] [address] [place] [address] Pqvqa-0-Omtcsqvi, Urine 4.1 % Normal . [facility] Comment on above: Performed By: #### C A125 #### [facility] , #### CEA #### [address] Sdpjm-8-Vjgnijkl, Urine 18.4 % Normal . T [facility] Comment on above: Performed By: #### C A125 #### [facility] , #### CEA #### [address] Beta Globulin, Urine 24.3 % Normal . [facility] Comment on above: Performed By: #### C A125 #### [facility] , #### CEA #### [address] Gamma Globulin, Urine 17.1 % Normal . [facility] Comment on above: Performed By: #### C A125 #### [facility] , #### CEA #### [address] M-Maury % Not Observed Normal Not Observed [facility] Comment on above: Performed By: #### C A125 #### [facility] , #### CEA #### [address] Please Note: Comment Normal . [facility] Comment on above: Result Comment: Prot ein electrophoresis scan will follow via computer, mail, or shift supervisor delivery. PERFORMED BY: [place] [address] PATHOLOGIST [employer] ANAHY MCKEE M.D. Performed By: #### C A125 #### [facility] , #### CEA #### [address] Protein (U) [Mass/Vol] 9.0 mg/dL Normal Not Estab. Th e [facility] Comment on above: Performed By: #### C A125 #### [facility] , #### CEA #### [address] Protein Electrophoresis, Ser umon 08-02-2024 Albumin [Mass/Vol] 3.9 g/dL Normal 2.9-4.4 [facility] Comment on above: Performed By: #### C A125 #### [facility] , #### CEA #### [address] Albumin/Globulin [Mass ratio] 1.1 {ratio} Normal 0.7-1.7 [facility] Comment on above: Performed By: #### C A125 #### [facility] , #### CEA #### [address] Ghjny-4-Jumvlgwc 0.2 g/dL Normal 0.0-0.4 [facility] Comment on above: Performed By: #### C A125 #### [facility] , #### CEA #### [address] Bhwoc-6-Rbsrfjhu 1.0 g/dL Normal 0.4-1.0 [facility] Comment on above: Performed By: #### C A125 #### [facility] , #### CEA #### [place] [address] [place] Beta Globulin 1.2 g/dL Normal 0.7-1.3 [facility] Comment on above: Performed By: #### C A125 #### [facility] , #### CEA #### [place] [address] [place] Gamma Globulin 1.3 g/dL Normal 0.4-1.8 [facility] Comment on above: Performed By: #### C A125 #### [facility] , #### CEA #### [place] [address] [place] Globulin (S) [Mass/Vol] 3.6 g/dL Normal 2.2-3.9 [facility] Comment on above: Performed By: #### C A125 #### [facility] , #### CEA #### [address] M-Maury Not Observed Normal Not Observed [facility] Comment on above: Performed By: #### C A125 #### [facility] , #### CEA #### [address] SPE-Note Comment Normal . [facility] Comment on above: Result Comment: Prot ein electrophoresis scan will follow via computer, mail, or shift supervisor delivery. Performed at: [facility] [id number] Cattle Shipper: Gabriel Whitman PhD, Phone: [phone] PERFORMED BY: [place] [address] PATHOLOGIST [employer] ANAHY MCKEE M.D. Performed By: #### C A125 #### [facility] , #### CEA #### [address] Protein Test strip (U) [Mass /Vol]Ordered By: Jesus Ayala on 08-02-2024 Protein (U) [Mass/Vol] Negative Negative [facility] Protein (U) [Mass/Vol] Protein [Mass/vol ume] in Urine by Test strip Negative [facility] Protein [Mass/volume] in Ser um or PlasmaOrdered By: Jesus Ayala on 08-02-2024 Protein [Mass/Vol] 7.5 g/dL Normal 6.0-8.5 [facility] Comment on above: Performed By: #### E SR, CMP, CK, CBC, CRP, TSH3, ADDONUAPLUS, T4F #### [address] #### CAMILLA,URINE, ALDOLASE, SPE, CAMILLA SERUM, UPE RAND #### [facility] , Performed By: #### C A125 #### [facility] , #### CEA #### [facility] [address] [place] [address] Protein [Mass/Vol] Protein [Mass/volume ] in Serum or Plasma 6.0-8.5 [facility] RBC Auto (Bld) [#/Vol]Ordere d By: Jesus Ayala on 08-02-2024 RBC (Bld) [#/Vol] Erythrocytes [#/volu me] in Blood by Automated count 3.60-5.00 [facility] Serum aldolase measurementOr dered By: Jesus Ayala on 08-02-[address] biopsy 3.3-10.3 [facility] Comment on above: Performed at: [place] [id number] Director: Gabriel Whitman PhD, Phone: [phone] Serum globulin measurement ( mass/volume)Ordered By: Jesus Ayala on 08-02-2024 Globulin (S) [Mass/Vol] Serum globulin measurement (mass/volume) 2.2-3.9 [facility] Serum globulin measurement b y calculation (mass/volume)Ordered By: Jesus Ayala on 08-02-2024 Globulin (S) [Mass/Vol] 3.2 g/dL Normal F [facility] Comment on above: Performed By: #### E SR, CMP, CK, CBC, CRP, TSH3, ADDONUAPLUS, T4F #### [facility] [address] [place] [address] [place] #### CAMILLA,URINE, ALDOLASE, SPE, CAMILLA SERUM, UPE RAND #### [facility] , Serum immunofixation electro phoresisOrdered By: Jesus Ayala on 08-02-2024 Serum Immunofixation Comment . [facility] Comment on above: No monoclonality det ected. Serum or plasma IgA measurem ent (mass/volume)Ordered By: Jesus Ayala on 08-02-2024 IgA [Mass/Vol] IgA [Mass/volume] in Serum or Plasma 87-352 [facility] Serum or plasma IgG measurem ent (mass/volume)Ordered By: Jesus Ayala on 08-02-2024 IgG [Mass/Vol] IgG [Mass/volume] in Serum or Plasma [id number] [facility] Serum or plasma IgM measurem ent (mass/volume)Ordered By: Jesus Ayala on 08-02-2024 IgM [Mass/Vol] IgM [Mass/volume] in Serum or Plasma 26-217 [facility] Comment on above: Performed at: [place] [id number] Director: Gabriel Whitman PhD, Phone: [phone] Serum or plasma albumin ge urement (mass/volume)Ordered By: Jesus Ayala on 08-02-2024 Albumin [Mass/Vol] Albumin [Mass/volume ] in Serum or Plasma 2.9-4.4 [facility] Serum or plasma albumin/glob ulin mass ratioOrdered By: Jesus Ayala on 08-02-2024 Albumin/Globulin [Mass ratio] 1.3 {ratio} Normal [facility] Comment on above: Performed By: #### E SR, CMP, CK, CBC, CRP, TSH3, ADDONUAPLUS, T4F #### [address] #### CAMILLA,URINE, ALDOLASE, SPE, CAMILLA SERUM, UPE RAND #### [facility] , Albumin/Globulin [Mass ratio] Serum or plasma albumin/globulin mass ratio 0.7-1.7 [facility] Serum or plasma alpha 1 glob ulin measurement by electrophoresis (mass/volume)Ordered By: Jesus Ayala on 08-02-2024 Alpha 1 globulin Elph [Mass/Vol] Serum or plasma alpha 1 globulin measurement by electrophoresis (mass/volume) 0.0-0.4 [facility] Serum or plasma alpha 2 glob ulin measurement by electrophoresis (mass/volume)Ordered By: Jesus Ayala on 08-02-2024 Alpha 2 globulin Elph [Mass/Vol] Serum or plasma alpha 2 globulin measurement by electrophoresis (mass/volume) 0.4-1.0 [facility] Serum or plasma anion gap de terminationOrdered By: Jesus Jamie on 08-02-2024 Anion gap [Moles/Vol] 12.2 mmol/L Normal 6.0-15.0 [facility] Comment on above: Performed By: #### E SR, CMP, CK, CBC, CRP, TSH3, ADDONUAPLUS, T4F #### [facility] [address] #### CAMILLA,URINE, ALDOLASE, SPE, CAMILLA SERUM, UPE RAND #### [facility] , Anion gap [Moles/Vol] Serum or plasma an ion gap determination 6.0-15.0 [facility] Serum or plasma beta globuli n measurement by electrophoresis (mass/volume)Ordered By: Jesus Ayala on 08-02-2024 Beta globulin Elph [Mass/Vol] Serum or plasma beta globulin measurement by electrophoresis (mass/volume) 0.7-1.3 [facility] Serum or plasma cancer antig en 125 (CA-125) measurement (units/volume)Ordered By: Blake Hinojosa on 08-02-2024 Cancer Ag 125 Qn Serum or plasma canc er antigen 125 (CA-125) measurement (units/volume) 0.0-38.1 [facility] Comment on above: [facility] El ectrochemiluminescence Immunoassay(ECLIA)Values obtained with different assay methods or kits cannotbe used interchangeably. Results cannot be interpreted asabsolute evidence of the presence or absence of malignantdisease.Performed at: [address] [id number] Director: Gabriel Whitman PhD, Phone: [phone] Serum or plasma carcinoembry onic antigen measurement (mass/volume)Ordered By: Blake Hinojosa on 08-02-2024 Carcinoembryonic Ag [Mass/Vol] 1.0 ng/mL 0.0-3.0 [facility] Comment on above: Serial tumor marker results determined by assays using different manufacturers or methods may not be comparable.[facility] tapering machine operator and method:RUSSELL UNICEL DXI, 2 SITE IMMUNOENZYMATIC SANDWICH ASSAY. Serum or plasma gamma globul in measurement by electrophoresis (mass/volume)Ordered By: Jesus Ayala on 08-02-2024 Gamma globulin Elph [Mass/Vol] Serum or plasma gamma globulin measurement by electrophoresis (mass/volume) 0.4-1.8 [facility] Sodium [Moles/volume] in Ser um or PlasmaOrdered By: Jesus Ayala on 08-02-2024 Sodium [Moles/Vol] 138 mmol/L Normal 136-145 [facility] Comment on above: Performed By: #### E SR, CMP, CK, CBC, CRP, TSH3, ADDONUAPLUS, T4F #### [facility] [address] [place] [address] #### CAMILLA,URINE, ALDOLASE, SPE, CAMILLA SERUM, UPE RAND #### [facility] , Sodium [Moles/Vol] Sodium [Moles/volume ] in Serum or Plasma 136-145 [facility] Specific gravity Test strip (U) [Rel density]Ordered By: Jesus Ayala on 08-02-2024 Specific gravity (U) [Rel density] 1.013 1.001-1.030 [facility] Specific gravity (U) [Rel density] Specific gravity of Urine by Test strip 1.001-1.030 [facility] Thyrotropin [Units/volume] i n Serum or PlasmaOrdered By: Jesus Ayala on 08-02-2024 TSH Qn 2.77 m[IU]/L Normal 0.45-5.33 [facility] Comment on above: Result Comment: PERF ORMED BY: [place] [address] PATHOLOGIST [employer] ANAHY MCKEE M.D. Performed By: #### E SR, CMP, CK, CBC, CRP, TSH3, ADDONUAPLUS, T4F #### [facility] [address] [place] [address] #### CAMILLA,URINE, ALDOLASE, SPE, CAMILLA SERUM, UPE RAND #### [facility] , TSH Qn Thyrotropin [Units/volume] in Serum or Plasma 0.45-5.33 [facility] Thyroxine (T4) free [Mass/vo lume] in Serum or PlasmaOrdered By: Jesus Ayala on 08-02-2024 Free T4 [Mass/Vol] 0.68 ng/dL Normal 0.61-1.12 [facility] Comment on above: Performed By: #### E SR, CMP, CK, CBC, CRP, TSH3, ADDONUAPLUS, T4F #### [facility] [address] #### CAMILLA,URINE, ALDOLASE, SPE, CAMILLA SERUM, UPE RAND #### [facility] , Free T4 [Mass/Vol] Thyroxine (T4) free [Mass/volume] in Serum or Plasma 0.61-1.12 [facility] Urea nitrogen [Mass/volume] in Serum or PlasmaOrdered By: Jesus Ayala on 08-02-2024 Urea nitrogen [Mass/Vol] 14 mg/dL Normal 04-29 [facility] Comment on above: Performed By: #### E SR, CMP, CK, CBC, CRP, TSH3, ADDONUAPLUS, T4F #### [facility] [address] [place] [address] #### CAMILLA,URINE, ALDOLASE, SPE, CAMILLA SERUM, UPE RAND #### [facility] , Urea nitrogen [Mass/Vol] Urea nitrogen [Mass/volume] in Serum or Plasma 04-29 [facility] Urine alpha 1 globulin/total protein by electrophoresisOrdered By: Jesus Ayala on 08-02-2024 Alpha 1 globulin Elph (U) [Mass fraction] Urine alpha 1 globulin/total protein by electrophoresis . [facility] Urine alpha 2 globulin/total protein ratio by electrophoresisOrdered By: Jesus Ayala on 08-02-2024 Alpha 2 globulin Elph (U) [Mass fraction] Urine alpha 2 globulin/total protein ratio by electrophoresis . [facility] Urine appearanceOrdered By: Jesus Ayala on 08-02-2024 Appearance (U) Clear Normal Clear [facility] Comment on above: Order Comment: Name Collection Type:: Clean-Voided Midstream Performed By: #### E SR, CMP, CK, CBC, CRP, TSH3, ADDONUAPLUS, T4F #### [facility] [address] [place] [address] [place] #### CAMILLA,URINE, ALDOLASE, SPE, CAMILLA SERUM, UPE RAND #### [facility] , Urine bacteria detection by automated methodOrdered By: Jesus Ayala on 08-02-2024 Bacteria Auto Ql (U) Bacteria [Presence] in Urine by Automated None Seen [facility] Urine beta globulin measurem ent by electrophoresis (mass/volume)Ordered By: Jesus Ayala on 08-02-2024 Beta globulin Elph (U) [Mass/Vol] Urine beta globulin measurement by electrophoresis (mass/volume) . [facility] Urine protein measurement (m ass/volume)Ordered By: Jesus Ayala on 08-02-2024 Protein (U) [Mass/Vol] Protein [Mass/vol ume] in Urine Not Estab. [facility] Urobilinogen Test strip (U) [Mass/Vol]Ordered By: Jesus Ayala on 08-02-2024 Urobilinogen (U) [Mass/Vol] Normal mg/dL Normal [facility] Urobilinogen (U) [Mass/Vol] Urobilinogen [Mass/volume] in Urine by Test strip Normal [facility] WBC Auto (Bld) [#/Vol]Ordere d By: Jesus Ayala on 08-02-2024 WBC (Bld) [#/Vol] Leukocytes [#/volume ] in Blood by Automated count 3.8-11.6 [facility] XR chest 2V*on 08-02-2024 XR chest 2V* [facility] [address] [place] [address] [place] [address] XRay Report Signed Patient: Mandeep Puri MR#: [id number] 15 : 1975 Acct:[id number] Age/Sex: 48 / F ADM Date: 08/02/24 Loc: XD Room: Type: [facility] Attending Dr: Jesus Ayala MD Copies [...] Trupti Adorno M.D.08/02/2024 4:18 PM Dictation Location: [place] [address] Transcribed By: [facility] 08/02/241617 Dictated By: Trupti Adorno MD 08/02/241616 Signed By: 08/02/241617 Normal [facility] pH Test strip (U)Ordered By: Jesus Ayala on 08-02-2024 pH (U) pH of Urine by Test strip 5.0-9.0 [facility] pH of Urine by Test stripOrd ered By: Jesus Ayala on 08-02-2024 pH (U) 7.0 [pH] Normal 5.0-9.0 [facility] Comment on above: Order Comment: Name Collection Type:: Clean-Voided Midstream Performed By: #### E SR, CMP, CK, CBC, CRP, TSH3, ADDONUAPLUS, T4F #### [facility] [address] [place] [address] #### CAMILLA,URINE, ALDOLASE, SPE, CAMILLA SERUM, UPE RAND #### [facility] , ALL CBC WITH AUTO DIFFon BASOPHILS ABSOLUTE AUTO 0 [facility] Basophils/100 WBC (Bld) 0.5 % 0.2 - 2.0 % [facility] Eosinophils/100 WBC (Bld) 2.9 % 0.9 - 7.0 % [facility] Erythrocyte distribution width (RBC) [Ratio] 14.4 % 11.0 - 15.0 % [facility] Hematocrit (Bld) [Volume fraction] 35.2 % Low 36.0 - 48.0 % [facility] Hemoglobin (Bld) [Mass/Vol] 11.4 g/dL Low 12.0 - 16.0 g/dL [facility] IMMATURE GRANULOCYTES ABS AUTO 0.06 High [facility] Immature granulocytes/100 WBC (Bld) 0.7 % High 0.0 - 0.5 % [facility] Interpretation and review of laboratory results Abnormal [facility] LYMPHOCYTES ABSOLUTE AUTO 1.1 Low [facility] Lymphocytes/100 WBC (Bld) 14 % Low 20.5 - 60.0 % [facility] MCH (RBC) [Entitic mass] 28 pg 26.7 - 34.0 pg [facility] MCHC (RBC) [Mass/Vol] 32.4 g/dL 29.9 - 35.2 g/dL [facility] MCV (RBC) [Entitic vol] 86.5 fL 81.0 - 99.0 fL [facility] MONOCYTES ABSOLUTE AUTO 0.4 N [facility] Monocytes/100 WBC (Bld) 5 % 1.7 - 12.0 % [facility] NEUTROPHILS ABSOLUTE AUTO 6.3 [facility] Neutrophils/100 WBC (Bld) 76.9 % High 43.0 - 75.0 % [facility] Platelet mean volume (Bld) [Entitic vol] 8.3 fL Low 9.5 - 13.5 fL [facility]H EO # 0.2 [facility] PLT 362 [facility] TB RBC 4.07 Low [facility] WBC 8.2 [facility] Follow-Upon 07-07-2024 Follow-Up [id number] Antonio Puri i 1975 F Date Provider Department Center 07/07/2024 SREE BOOKER [facility] URO Second Fl Family History Problem Relation Age of Onset Fibromyalgia Mother Heart disease Father Hypertension Sister Polycystic kidney disease Sister Hypertension Brother Polycystic kidney disease Brother Family Status - Relation Status Age at Mother Father Sister Brother Level of Service:06337 [place] OFFICE/OUTPATIENT ESTABLISHED LOW MDM 20 MIN Reason for Visit and Comments: UTI [[id number]] - CT results Normal [facility] URINE CULTURE, ROUTINEon Bacteria identified Cx Nom (U) ESCHERICHIA COLI Abnormal [facility] Comment on above: Result Comment: >100 ,000 CFU/Ml Escherichia coli Susceptibility to Follow Performed By: #### L [id number] #### [facility] ([facility]) [address] [place] [address] CT ABDOMEN PELVIS WO IV CONT Mer [...] kidney with innumerable circumscribed lesions within the [place] kidneys, many which are simple cysts, others [...] Epperson MD. Not Vldtd Invalid Interpretation Code [facility] ALL CBC WITH AUTO DIFFon BASOPHILS ABSOLUTE AUTO 0.0 N [facility] Basophils/100 WBC (Bld) 0.4 % 0.2 - 2.0 % [facility] Eosinophils/100 WBC (Bld) 2.4 % 0.9 - 7.0 % [facility] Erythrocyte distribution width (RBC) [Ratio] 15.5 % High 11.0 - 15.0 % [facility] Hematocrit (Bld) [Volume fraction] 37.7 % 36.0 - 48.0 % [facility] Hemoglobin (Bld) [Mass/Vol] 11.9 g/dL Low 12.0 [...] [facility] Lymphocytes/100 WBC (Bld) 14.8 % Low 20.5 - 60.0 % [facility] MCH (RBC) [Entitic mass] 27.9 pg 26.7 - 34.0 pg [facility] MCHC (RBC) [Mass/Vol] 31.6 g/dL 29.9 - 35.2 g/dL [facility] MCV (RBC) [Entitic vol] 88.3 fL 81.0 - 99.0 fL [facility] MONOCYTES ABSOLUTE AUTO 0.4 N [facility] Monocytes/100 WBC (Bld) 5.1 % 1.7 [...] [facility] TBH PLT 333 [facility] TB RBC 4.27 [facility] WBC 7.5 [facility] Orders Onlyon 06-15-2024 Orders Only [id number] Antonio Puri i 1975 F Date Provider Department Center 06/15/2024 Camron-MUNIRA PHAN TXP None Family History Problem Relation Age of Onset Fibromyalgia Mother Heart disease Father Hypertension Sister Polycystic kidney disease Sister Hypertension Brother Polycystic kidney disease Brother Family Status - Relation Status Age at Mother Father Sister Brother Normal [facility] ALL CBC WITH AUTO DIFFon BASOPHILS ABSOLUTE AUTO 0.0 N [facility] Basophils/100 WBC (Bld) 0.5 % 0.2 - 2.0 % [facility] Eosinophils/100 WBC (Bld) 3.0 % 0.9 - 7.0 % [facility] Erythrocyte distribution width (RBC) [Ratio] 15.9 % High 11.0 - 15.0 % [facility] Hematocrit (Bld) [Volume fraction] 36.3 % 36.0 - 48.0 % [facility] Hemoglobin (Bld) [Mass/Vol] 11.8 g/dL Low 12.0 [...] [facility] MONOCYTES ABSOLUTE AUTO 0.5 N [facility] Monocytes/100 WBC (Bld) 5.7 % 1.7 - 12.0 % [facility] NEUTROPHILS ABSOLUTE AUTO 6.4 [facility] Neutrophils/100 WBC (Bld) 76.3 % High 43.0 - 75.0 % [facility] Platelet mean volume (Bld) [Entitic vol] 8.6 fL Low 9.5 - 13.5 fL [facility] TB EO # 0.3 [facility] TB PLT 331 [facility] RBC 4.22 [facility] WBC 8.4 [facility] Consulton 05-19-2024 Consult [id number] Antonio Puri i 1975 F Date Provider Department Center 05/19/2024 3844-SREE BLANCHARD [facility] U[facility] Second Fl Family History Problem Relation Age of Onset Fibromyalgia Mother Heart disease Father Hypertension Sister Polycystic kidney disease Sister Hypertension Brother Polycystic kidney disease Brother Family Status - Relation Status Age at Mother Father Sister Brother Level of Service:41963 [place] OFFICE/OUTPATIENT ESTABLISHED MOD MDM 30 MIN Reason for Visit and Comments: UTI [[id number]] - Recurrent chronic ecoli , has fibromyalgia and when that flairs up the UTI happens Normal [facility] CREATININE, URINE, RANDOMon 04-27-2024 Creatinine (U) [Mass/Vol] 142.0 mg/dL Normal 26-299 [facility] Comment on above: Performed By: #### L [id number] #### [facility] ([facility]) [address] [place] [address] Follow-Upon 04-27-2024 Follow-Up [id number] Antonio Puri i 1975 F Date Provider Department Center 04/27/2024 124-MUNIRA PHAN TXP None Family History Problem Relation Age of Onset Fibromyalgia Mother Heart disease Father Hypertension Sister Polycystic kidney disease Sister Hypertension Brother Polycystic kidney disease Brother Family Status - Relation Status Age at Mother Father Sister Brother Level of Service:60590 [place] OFFICE/OUTPATIENT ESTABLISHED MOD MDM 30 MIN Reason [...] mg because they are smaller pills. Normal [facility] PROTEIN, URINE, RANDOMon Protein (U) [Mass/Vol] 51.7 mg/dL [facility] Comment on above: Result Comment: Ther e are no established reference values for random urine specimens. Performed By: #### L [id number] ####[facility] ([facility])[address] [place] [address] URINALYSISon 04-27-2024 BILIRUBIN, TOTAL PRESENCE IN URINE Negative Normal Negative [facility] Comment on above: Performed By: #### L [id number] #### [facility] [address] [place] [address] Clarity (U) Slightly Cloudy Abnormal Clear [facility] Comment on above: Performed By: #### L [id number] #### [facility] [address] [place] [address] Color (U) Yellow Normal Yellow [facility] Comment on above: Performed By: #### L [id number] #### [facility] [address] [place] [address] Glucose (U) [Mass/Vol] Negative Normal [facility] Comment on above: Performed By: #### L [id number] #### [facility] [address] [place] [address] HEMOGLOBIN PRESENCE IN URINE Small Abnormal Negative [facility] Comment on above: Performed By: #### L [id number] #### [facility] [address] [place] [address] Ketones Ql (U) Negative Normal Negative [facility] Comment on above: Performed By: #### L [id number] #### [facility] [address] [place] [address] LEUKOCYTE ESTERASE PRESENCE IN URINE BY TEST STRIP Large Abnormal Negative [facility] Comment on above: Performed By: #### L [id number] #### [facility] [address] [place] [address] NITRITE PRESENCE IN URINE Positive Abnormal Negative [facility] Comment on above: Performed By: #### L [id number] #### [facility] [address] [place] [address] pH (U) 6.0 [pH] Normal 5.0-8.0 [facility] Comment on above: Performed By: #### L [id number] #### [facility] [address] [place] [address] Protein (U) [Mass/Vol] 100 mg/dL Abnormal Negative [facility] Comment on above: Performed By: #### L [id number] #### [facility] [address] [place] [address] Specific gravity (U) [Rel density] 1.012 Low 1.015-1.020 [facility] Comment on above: Performed By: #### L [id number] #### [facility] ([facility]) [address] [place] [address] URINALYSIS MICROSCOPICon CASTS IN URINE Normal [facility] Comment on above: Performed By: #### L [id number] #### [facility] ([facility]) [address] [place] [address] CRYSTALS IN URINE Normal [facility] Comment on above: Performed By: #### L [id number] #### [facility] [address] [place] [address] MUCUS (#/HPF) IN URINE SEDIMENT Occasional Normal None Seen, Occasional, Few [facility] Comment on above: Performed By: #### L [id number] #### [facility] [address] [place] [address] RBC (#/HPF) IN URINE SEDIMENT 11-20 Abnormal None Seen [facility] Comment on above: Performed By: #### L [id number] #### [facility] [address] [place] [address] SQUAMOUS EPITHELIAL CELLS (#/HPF) IN URINE SEDIMENT Moderate Abnormal None Seen, Occasional [facility] Comment on above: Performed By: #### L [id number] #### [facility] ([facility] [address] [place] [address] WBC (LEUKOCYTE) (#/HPF) IN URINE SEDIMENT >100 Abnormal None Seen [facility] Comment on above: Performed By: #### L [id number] #### [facility] [address] [place] [address] URINE CULTURE, ROUTINEon Bacteria identified Cx Nom (U) ESCHERICHIA COLI Abnormal [facility] Comment on above: Result Comment: >100 ,000 CFU/Ml Escherichia coli Susceptibility to Follow Performed By: #### L [id number] ####[facility] [place] [address] BILIRUBIN, DIRECTon 04-23-20 24 Magnesium [Mass/Vol] 0.0 mg/dL Normal 0-0.[address] [facility] Comment on above: Performed By: #### L [id number] #### [facility] [address] [place] [address] CBC WITH AUTO DIFFERENTIALon 04-23-2024 Basophils (Bld) [#/Vol] 0.05 10*3/uL Normal 0.00-0.20 [facility] Comment on above: Performed By: #### L [id number] #### [facility] [address] [place] [address] Basophils/100 WBC (Bld) 0.6 % Normal 0.0-1.0 [facility] Comment on above: Performed By: #### L [id number] #### [facility] [address] [place] [address] Eosinophils (Bld) [#/Vol] 0.17 10*3/uL Normal 0.00-0.50 [facility] Comment on above: Performed By: #### L [id number] #### [facility] [address] [place] [address] Eosinophils/100 WBC (Bld) 1.9 % Normal 0.0-6.0 [facility] Comment on above: Performed By: #### L [id number] #### [facility] [address] [place] [address] Erythrocyte distribution width (RBC) [Ratio] 15.7 % High 11.5-15.0 [facility] Comment on above: Performed By: #### L [id number] #### [facility] [address] [place] [address] ERYTHROCYTE MEAN CORPUSCULAR HEMOGLOBIN CONCENTRATION (G/DL) BY AUTOMATED 32.7 g/dL Normal 32.0-35.0 [facility] Comment on above: Performed By: #### L [id number] #### [facility]) [address] [place] [address] Hematocrit (Bld) [Volume fraction] 39.2 % Normal 36.0-48.0 [facility] Comment on above: Performed By: #### L [id number] #### [facility] [address] [place] [address] Hemoglobin (Bld) [Mass/Vol] 12.8 g/dL Normal 12.0-15.0 [facility] Comment on above: Performed By: #### L [id number] #### [facility] [address] [place] [address] Immature granulocytes (Bld) [#/Vol] 0.06 10*3/uL Normal 0.00-0.20 [facility] Comment on above: Performed By: #### L [id number] #### [facility] [address] [place] [address] Immature granulocytes/100 WBC (Bld) 0.7 % Normal 0.0-1.0 [facility] Comment on above: Performed By: #### L [id number] #### [facility] [address] [place] [address] Lymphocytes (Bld) [#/Vol] 1.27 10*3/uL Normal 1.20-4.00 [facility] Comment on above: Performed By: #### L [id number] #### [facility]) [address] [place] [address] Lymphocytes/100 WBC (Bld) 14.5 % Low 20.0-45.0 [facility] Comment on above: Performed By: #### L [id number] #### [facility] [address] [place] [address] MCH (RBC) [Entitic mass] 27.7 pg Normal 27.0-33.0 [facility] Comment on above: Performed By: #### L [id number] #### [facility] [address] [place] [address] MCV (RBC) [Entitic vol] 84.8 fL Normal 82.0-98.0 [facility] Comment on above: Performed By: #### L [id number] #### [facility] ([facility]) [address] [place] [address] Monocytes (Bld) [#/Vol] 0.40 10*3/uL Normal 0.10-1.00 [facility] Comment on above: Performed By: #### L [id number] #### [facility] ([facility]) [address] [address] Monocytes/100 WBC (Bld) 4.6 % Low 5.0-12.0 [facility] Comment on above: Performed By: #### L [id number] #### [facility] ([facility]) [address] [place] [address] Neutrophils (Bld) [#/Vol] 6.82 10*3/uL Normal 1.60-7.60 [facility] Comment on above: Performed By: #### L [id number] #### [facility] [address] [address] Neutrophils/100 WBC (Bld) 77.7 % High 40.0-72.0 [facility] Comment on above: Performed By: #### L [id number] #### [facility] [address] [address] NRBC (PER 100 WBCS) BY AUTOMATED COUNT 0.0 % Normal 0 [facility] Comment on above: Performed By: #### L [id number] #### [facility] [address] [place] [address] PLATELETS (10*3/UL) IN BLOOD AUTOMATED COUNT 337 10*3/uL Normal 150-400 [facility] Comment on above: Performed By: #### L [id number] #### [facility] ([facility]) [address] [place] [address] RBC (Bld) [#/Vol] 4.62 10*6/uL Normal 3.80-5.00 [facility] Comment on above: Performed By: #### L [id number] #### [facility] [address] [place] [address] WBC (Bld) [#/Vol] 8.77 10*3/uL Normal 4.00-10.60 [facility] Comment on above: Performed By: #### L [id number] #### [facility]) [address] [place] [address] COMPREHENSIVE METABOLIC PANE Jonathan 04-23-2024 Albumin [Mass/Vol] 4.4 g/dL Normal 3.5-5.7 [facility] Comment on above: Performed By: #### L [id number] #### [facility]) [address] [place] [address] ALP [Catalytic activity/Vol] 74 U/L Normal 34-104 [facility] Comment on above: Performed By: #### L [id number] #### [facility] [address] [place] [address] ALT [Catalytic activity/Vol] 9 U/L Normal 7-52 [facility] Comment on above: Performed By: #### L [id number] #### [facility]) [address] [place] [address] Anion gap [Moles/Vol] 13 mmol/L Normal 7-20 [facility] Comment on above: Performed By: #### L [id number] #### [facility]) [address] [place] [address] AST [Catalytic activity/Vol] 14 U/L Normal 13-39 [facility] Comment on above: Performed By: #### L [id number] #### [facility] [address] [place] [address] Bilirubin [Mass/Vol] 0.4 mg/dL Normal 0.3-1.0 [facility] Comment on above: Performed By: #### L [id number] #### [facility] [facility] [address] [place] [address] Calcium [Mass/Vol] 9.4 mg/dL Normal 8.6-10.3 [facility] Comment on above: Performed By: #### L [id number] #### [facility] [address] [place] [address] Chloride [Moles/Vol] 104 mmol/L Normal 98-107 [facility] Comment on above: Performed By: #### L [id number] #### [facility] [address] [place] [address] CO2 [Moles/Vol] 25 mmol/L Normal 21-31 [facility] Comment on above: Performed By: #### L [id number] #### [facility] [address] [place] [address] Creatinine [Mass/Vol] 1.09 mg/dL Normal 0.60-1.20 [facility] Comment on above: Performed By: #### L [id number] #### [facility] [address] [place] [address] GLOMERULAR FILTRATION RATE ML/MIN/1.73 SQ M.PREDICTED 62.7 mL/min/1.73m*2 Normal >60.0 [facility] Comment on above: Result Comment: [facility]???s estimated glomerular filtration rate (eGFR) will [...] individuals. Performed By: #### L [id number] #### [facility] [address] [place] [address] Glucose [Mass/Vol] 108 mg/dL High 70-100 [facility] Comment on above: Performed By: #### L [id number] #### [facility] ([facility] [address] [place] [address] Potassium [Moles/Vol] 3.5 mmol/L Normal 3.5-5.1 [facility] Comment on above: Performed By: #### L [id number] #### [facility] [address] [place] [address] Protein [Mass/Vol] 7.6 g/dL Normal 6.0-8.3 [facility] Comment on above: Performed By: #### L [id number] #### [facility] [address] [place] [address] Sodium [Moles/Vol] 138 mmol/L Normal 136-145 [facility] Comment on above: Performed By: #### L [id number] #### [facility] [address] [place] [address] Urea nitrogen [Mass/Vol] 13 mg/dL Normal 7-25 [facility] Comment on above: Performed By: #### L [id number] #### [facility] [address] [place] [address] UREA NITROGEN/CREATININE (MASS RATIO) IN SER/PLAS 11.9 Normal [facility] Comment on above: Performed By: #### L [id number] #### [facility] [address] [place] [address] HEMOGLOBIN A1Con 04-23-2024 Glucose [Mass/Vol] 105 mg/dL Normal [facility] Comment on above: Performed By: #### L [id number] #### [facility] [address] [place] [address] HbA1c (Bld) [Mass fraction] 5.3 % Normal 4.0-6.0 [facility] Comment on above: Performed By: #### L [id number] #### [facility] ([facility] [address] [place] [address] LIPID PANELon 04-23-2024 CHOL/HDL 4.0 mg/dL Normal [facility] Comment on above: Performed By: #### L [id number] #### [facility] [address] [place] [address] Cholesterol [Mass/Vol] 182 mg/dL Normal 120-200 Un [facility] Comment on above: Performed By: #### L [id number] #### [facility] [address] [place] [address] Magnesium [Mass/Vol] 166 mg/dL High 40-149 [facility] Comment on above: Result Comment: TRIG LYCERIDE REFERENCE RANGE: 20 YEARS AND OLDER CARDIOVASCULAR RISK LESS THAN 150 mg/dL LOW RISK 150 TO 199 mg/dL BORDERLINE RISK 200 mg/dL AND GREATER HIGH RISK Performed By: #### L [id number] #### [facility] [address] [place] [address] Magnesium [Mass/Vol] 103 mg/dL Normal 0-160 [facility] Comment on above: Performed By: #### L [id number] #### [facility] [address] [place] [address] Magnesium [Mass/Vol] 46 mg/dL Normal 23-92 [facility] Comment on above: Performed By: #### L [id number] #### [facility] [address] [place] [address] NON HDL CHOL. (LDL+VLDL) 136 Normal [facility] Comment on above: Performed By: #### L [id number] #### [facility] [address] [place] [address] TOTAL VLDL-C 33 mg/dL Normal 0-40 [facility] Comment on above: Performed By: #### L [id number] #### [facility] [address] [place] [address] Labon 04-23-2024 Lab [id number] Antonio Puri i 1975 F Date Provider Department Center 04/23/2024 4537-[facility] OPD LAB RESOURCE [facility]PD [facility] C Family History Problem Relation Age of Onset Fibromyalgia Mother Heart disease Father Hypertension Sister Polycystic kidney disease Sister Hypertension Brother Polycystic kidney disease Brother Family Status - Relation Status Age at Mother Father Sister Brother Normal [facility] MAGNESIUMon 04-23-2024 Magnesium [Mass/Vol] 1.8 mg/dL Low 1.9-2.7 [facility] Comment on above: Performed By: #### L [id number] #### [facility] [address] [place] [address] PHOSPHORUSon 04-23-2024 Magnesium [Mass/Vol] 2.8 mg/dL Normal 2.5-5.0 [facility] Comment on above: Performed By: #### L [id number] #### [facility] [address] [place] [address] TACROLIMUS LEVELon Tacrolimus (Bld) [Mass/Vol] 10.5 ng/mL Normal 5.0-20.0 [facility] Comment on above: Result Comment: The [employer] Tacrolimus assay is a delayed one-step immunoassay for the quantitative determination of tacrolimus in human whole blood using the chemiluminescent microparticle immunoassay (CMIA) technology with flexible assay protocols, referred to as Chemiflex. Performed By: #### L [id number] #### [facility] [address] [place] [address] URIC ACIDon 04-23-2024 Magnesium [Mass/Vol] 4.0 mg/dL Normal 2.3-6.6 [facility] Comment on above: Performed By: #### L [id number] #### [facility] [address] [place] [address] URINALYSISon 04-23-2024 BILIRUBIN, TOTAL PRESENCE IN URINE Negative Normal Negative [facility] Comment on above: Performed By: #### L [id number] #### [facility] [address] [facility] [place] [address] Clarity (U) Cloudy Abnormal Clear [facility] Comment on above: Performed By: #### L [id number] #### [facility] [address] [place] [address] Color (U) Yellow Normal Yellow [facility] Comment on above: Performed By: #### L [id number] #### [facility] [address] [place] [address] Glucose (U) [Mass/Vol] Negative Normal Negative [facility] Comment on above: Performed By: #### L [id number] #### [facility] [address] [place] [address] HEMOGLOBIN PRESENCE IN URINE Negative Normal Negative [facility] Comment on above: Performed By: #### L [id number] #### [facility] [address] [place] [address] Ketones Ql (U) Negative Normal Negative [facility] Comment on above: Performed By: #### L [id number] #### [facility] [address] [place] [address] LEUKOCYTE ESTERASE PRESENCE IN URINE BY TEST STRIP Negative Normal Negative [facility] Comment on above: Performed By: #### L [id number] #### [facility] [address] [place] [address] NITRITE PRESENCE IN URINE Negative Normal Negative [facility] Comment on above: Performed By: #### L [id number] #### [facility] [address] [place] [address] pH (U) 7.0 [pH] Normal 5.0-8.0 [facility] Comment on above: Performed By: #### L [id number] #### [facility] [address] [place] [address] Protein (U) [Mass/Vol] Negative Normal Negative [facility] Comment on above: Performed By: #### L [id number] #### [facility] [address] [place] [address] Specific gravity (U) [Rel density] 1.011 Low 1.015-1.020 [facility] Comment on above: Performed By: #### L [id number] #### [facility] ([facility]) [address] [place] [address] URINALYSIS MICROSCOPICon AMORPHOUS CRYSTALS (#/HPF) IN URINE Few Abnormal None Seen [facility] Comment on above: Performed By: #### L [id number] #### [facility] [address] [place] [address] CASTS IN URINE Normal [facility] Comment on above: Performed By: #### L [id number] #### [facility] [address] [place] [address] CRYSTALS IN URINE Normal [facility] Comment on above: Performed By: #### L [id number] #### [facility] [address] [place] [address] MUCUS (#/HPF) IN URINE SEDIMENT Occasional Normal None Seen, Occasional, Few [facility] Comment on above: Performed By: #### L [id number] #### [facility] [address] [place] [address] RBC (#/HPF) IN URINE SEDIMENT 3-5 Abnormal None Seen [facility] Comment on above: Performed By: #### L [id number] #### [facility] [address] [place] [address] SQUAMOUS EPITHELIAL CELLS (#/HPF) IN URINE SEDIMENT Many Abnormal None Seen, Occasional [facility] Comment on above: Performed By: #### L [id number] #### [facility] ([facility]) [address] [place] [address] WBC (LEUKOCYTE) (#/HPF) IN URINE SEDIMENT 3-5 Abnormal None Seen [facility] Comment on above: Performed By: #### L [id number] #### [facility] ([facility]) [address] [place] [address] URINE CULTURE, ROUTINEon Bacteria identified Cx Nom (U) <10,000 CFU/ML No Significant Growth Normal [facility] Comment on above: Performed By: #### L [id number] #### [facility] ([facility]) [address] [place] [address] Alanine aminotransferase [En zymatic activity/volume] in Serum or PlasmaOrdered By: Perri Ceja on 11-06-2023 ALT [Catalytic activity/Vol] 20 U/L 7-52 [facility] Albumin [Mass/volume] in Ser um or Plasma by Bromocresol green (BCG) dye binding methoOrdered By: Perri Ceja on 11-06-2023 Albumin BCG dye [Mass/Vol] 4.7 g/dL 3.5-5.7 [facility] Alkaline phosphatase [Enzyma tic activity/volume] in Serum or PlasmaOrdered By: Perri Ceja on 11-06-2023 ALP [Catalytic activity/Vol] 96 U/L 34-104 [facility] Aspartate aminotransferase [ Enzymatic activity/volume] in Serum or PlasmaOrdered By: Perri Ceja on 11-06-2023 AST [Catalytic activity/Vol] 16 U/L 13-39 [facility] Basophils Auto (Bld) [#/Vol] Ordered By: Perri Ceja on 11-06-2023 Basophils (Bld) [#/Vol] 0.1 10*3/uL 0.0-0.2 [facility] Basophils/100 WBC Auto (Bld) Ordered By: Perri Ceja on 11-06-2023 Basophils/100 WBC (Bld) 0.7 % . F [facility] Bilirubin.total [Mass/volume ] in Serum or PlasmaOrdered By: Perri Ceja on 11-06-2023 Bilirubin [Mass/Vol] 0.4 mg/dL 0.3-1.0 [facility] C reactive protein [Mass/vol ume] in Serum or PlasmaOrdered By: Perri Ceja on 11-06-2023 CRP [Mass/Vol] 2.0 mg/dL 0.0-0.5 [facility] Calcium [Mass/volume] in Ser um or PlasmaOrdered By: Perri Ceja on 11-06-2023 Calcium [Mass/Vol] 10.3 mg/dL 8.6-10.3 [facility] Carbon dioxide, total [Moles /volume] in Serum or PlasmaOrdered By: Perri Ceja on 11-06-2023 CO2 [Moles/Vol] 26.1 mmol/L 21.0-31.0 [facility] Chloride [Moles/volume] in S aislinn or PlasmaOrdered By: Perri Ceja on 11-06-2023 Chloride [Moles/Vol] 104 mmol/L 98-107 [facility] Creatine kinase [Enzymatic a ctivity/volume] in Serum or PlasmaOrdered By: Perri Ceja on 11-06-2023 CK [Catalytic activity/Vol] 30 U/L 30-223 [facility] Creatinine [Mass/volume] in Serum or PlasmaOrdered By: Perri Ceja on 11-06-2023 Creatinine [Mass/Vol] 1.17 mg/dL 0.60-1.20 [facility] Eosinophils Auto (Bld) [#/Vo l]Ordered By: Perri Ceja on 11-06-2023 Eosinophils (Bld) [#/Vol] 0.3 10*3/uL 0.0-0.45 [facility] Eosinophils/100 WBC Auto (Bl d)Ordered By: Perri Ceja on 11-06-2023 Eosinophils/100 WBC (Bld) 3.0 % . [facility] Erythrocyte distribution wid th Auto (RBC) [Ratio]Ordered By: Perri Ceja on 11-06-2023 Erythrocyte distribution width (RBC) [Ratio] 15.3 % 11.9-15.3 [facility] Erythrocyte sedimentation ra te by Photometric methodOrdered By: Perri Ceja on 11-06-2023 ESR Photometric method (Bld) [Velocity] 49 mm/hr 0-19 [facility] Globulin Calc (S) [Mass/Vol] Ordered By: Perri Ceja on 11-06-2023 Globulin (S) [Mass/Vol] 3.0 g/dL [facility] Glucose [Mass/volume] in Ser um or PlasmaOrdered By: Perri Ceja on 11-06-2023 Glucose [Mass/Vol] 91 mg/dL 70-100 [facility] Comment on above: ADA recommended refe rence rangeRandom Glucose Reference Range is dependent on time and content of last meal. Glucose of more than 200 mg/dL in a nonstressed, ambulatory subject supports the diagnosis of Diabetes Mellitus. Hematocrit Auto (Bld) [Volum e fraction]Ordered By: Perri Ceja on 11-06-2023 Hematocrit (Bld) [Volume fraction] 38.9 % 34.0-46.4 [facility] Hemoglobin [Mass/volume] in BloodOrdered By: Perri Ceja on 11-06-2023 Hemoglobin (Bld) [Mass/Vol] 13.1 g/dL 11.8-15.4 [facility] Leukocytes [#/volume] correc noah for nucleated erythrocytes in Blood by Automated counOrdered By: Perri Ceja on 11-06-2023 WBC corrected for nucl RBC Auto (Bld) [#/Vol] 8.8 10*3/uL 3.8-11.6 [facility] Lymphocytes Auto (Bld) [#/Vo l]Ordered By: Perri Ceja on 11-06-2023 Lymphocytes (Bld) [#/Vol] 1.5 10*3/uL 1.00-4.8 [facility] Lymphocytes/100 WBC Auto (Bl d)Ordered By: Perri Ceja on 11-06-2023 Lymphocytes/100 WBC (Bld) 17.6 % . [facility] MCH Auto (RBC) [Entitic mass ]Ordered By: Perri Ceja on 11-06-2023 MCH (RBC) [Entitic mass] 28.4 pg 24.7-34.3 [facility] MCHC Auto (RBC) [Mass/Vol]Or dered By: Perri Ceja on 11-06-2023 MCHC (RBC) [Mass/Vol] 33.6 g/dL 32.0-35.0 [facility] MCV Auto (RBC) [Entitic vol] Ordered By: Perri Ceja on 11-06-2023 MCV (RBC) [Entitic vol] 84.6 fL 80-100 [facility] Monocytes Auto (Bld) [#/Vol] Ordered By: Perri Ceja on 11-06-2023 Monocytes (Bld) [#/Vol] 0.6 10*3/uL 0.0-0.8 [facility] Monocytes/100 WBC Auto (Bld) Ordered By: Perri Ceja on 11-06-2023 Monocytes/100 WBC (Bld) 6.6 % . [facility] Neutrophils Auto (Bld) [#/Vo l]Ordered By: Perri Ceja on 11-06-2023 Neutrophils (Bld) [#/Vol] 6.3 10*3/uL 1.8-7.7 [facility] Neutrophils/100 WBC Auto (Bl d)Ordered By: Perri Ceja on 11-06-2023 Neutrophils/100 WBC (Bld) 72.1 % . [facility] No Panel InformationOrdered By: Perri Ceja on 11-06-2023 Estimated GFR (CKD-EPI) 57.919 mL/Min [facility] Creatinine Clearance (Chem N/A [facility] Nucleated erythrocytes [Pres ence] in Blood by Automated countOrdered By: Perri Ceja on 11-06-2023 Nucleated RBC Auto Ql (Bld) 0.1 /100{WBC} 0-0.5 [facility] Platelet mean volume Auto (B ld) [Entitic vol]Ordered By: Perri Ceja on 11-06-2023 Platelet mean volume (Bld) [Entitic vol] 6.9 fL 6.3-10.7 [facility] Platelets Auto (Bld) [#/Vol] Ordered By: Perri Ceja on 11-06-2023 Platelets (Bld) [#/Vol] 393 10*3/uL 150-450 [facility] Potassium [Moles/volume] in Serum or PlasmaOrdered By: Perri Ceja on 11-06-2023 Potassium [Moles/Vol] 3.8 mmol/L 3.5-5.1 [facility] Protein [Mass/volume] in Ser um or PlasmaOrdered By: Perri Ceja on 11-06-2023 Protein [Mass/Vol] 7.7 g/dL 6.4-8.9 [facility] RBC Auto (Bld) [#/Vol]Ordere d By: Perri Ceja on 11-06-2023 RBC (Bld) [#/Vol] 4.60 10*6/uL 3.60-5.00 [facility] Serum or plasma albumin/glob ulin mass ratioOrdered By: Perri Ceja on 11-06-2023 Albumin/Globulin [Mass ratio] 1.6 {ratio} [facility] Serum or plasma anion gap de terminationOrdered By: Perri Ceja on 11-06-2023 Anion gap [Moles/Vol] 12.7 mmol/L 6.0-15.0 [facility] Sodium [Moles/volume] in Ser um or PlasmaOrdered By: Perri Ceja on 11-06-2023 Sodium [Moles/Vol] 139 mmol/L 136-145 [facility] Urea nitrogen [Mass/volume] in Serum or PlasmaOrdered By: Perri Ceja on 11-06-2023 Urea nitrogen [Mass/Vol] 17 mg/dL 7-25 [facility] WBC Auto (Bld) [#/Vol]Ordere d By: Perri Ceja on 11-06-2023 WBC (Bld) [#/Vol] 8.8 10*3/uL 3.8-11.6 [facility] PTH INTACTon 07-30-2022 PTH, Intact 107 pg/mL Critically high 15-65 [facility] Comment on above: Performed By: #### M G, URIC, RENAL #### [facility] [address] [address] [address] Hari Palmer FERRITINon 07-29-2022 Ferritin [Mass/Vol] 194.0 ng/mL Critically high 6.2-137.0 [facility] Comment on above: Performed By: #### M G, URIC, RENAL #### [facility] [address] [address] [address] Hari Palmer HEMOGRAM AND PLATELon 2021 Hematocrit (Bld) [Volume fraction] 32.8 % Critically low 36.0-48.0 [facility] Comment on above: Performed By: #### M G, URIC, RENAL #### [facility] [address] [address] [address] Hari Palmer Hemoglobin (Bld) [Mass/Vol] 10.8 g/dL Critically low 12.0-16.0 [facility] Comment on above: Performed By: #### M G, URIC, RENAL #### [facility] [address] [place] [address] Dr. Hari Palmer MCH (RBC) [Entitic mass] 31.7 pg Normal 26.7-34.0 [facility] Comment on above: Performed By: #### M G, URIC, RENAL #### [facility] [address] [place] [address] Dr. Hari Palmer MCHC (RBC) [Mass/Vol] 32.9 g/dL Normal 29.9-35.2 [facility] Comment on above: Performed By: #### M G, URIC, RENAL #### [facility] [address] [place] [address] Dr. Hari Palmer MCV (RBC) [Entitic vol] 96.2 fL Normal 81.0-99.0 [facility] Comment on above: Performed By: #### M G, URIC, RENAL #### [facility] [address] [place] [address] Dr. Hari Palmer PLT 297 103/ul Normal 150-450 [facility] Comment on above: Performed By: #### M G, URIC, RENAL #### [facility] [address] [place] [address] Dr. Hari Palmer RBC 3.41 106/ul Critically low 4.20-5.40 [facility] Comment on above: Performed By: #### M G, URIC, RENAL #### [facility] [address] [place] [address] Dr. Hari Palmer WBC 7.1 103/ul Normal 4.0-11.0 [facility] Comment on above: Performed By: #### M G, URIC, RENAL #### [facility] [address] [place] [address] Dr. Hari Palmer IRON AND TIBCon 07-29-2022 % SATURATION 19.0 % Normal [facility] Comment on above: Performed By: #### M G, URIC, RENAL #### [facility] [address] [place] [address] Dr. Hari Palmer Iron [Mass/Vol] 48.0 ug/dL Critically low 50.0-170.0 [facility] Comment on above: Performed By: #### M G, URIC, RENAL #### [facility] [address] [place] [address] Dr. Hari Palmer TIBC DIRECT 252.0 ug/dL Normal 250.0-450.0 [facility] Comment on above: Performed By: #### M G, URIC, RENAL #### [facility] [address] [place] [address] Dr. Hari Palmer MAGNESIUMon 07-29-2022 Magnesium [Mass/Vol] 2.0 mg/dL Normal 1.8-2.4 [facility] Comment on above: Performed By: #### M G, URIC, RENAL #### [facility] [address] [place] [address] Dr. Hari Palmer RENAL FUNCTION PANELon 07-29 Albumin [Mass/Vol] 3.6 g/dL Normal 3.4-5.0 [facility] Comment on above: Performed By: #### M G, URIC, RENAL #### [facility] [address] [place] [address] Dr. Hari Palmer Calcium [Mass/Vol] 8.7 mg/dL Normal 8.5-10.1 [facility] Comment on above: Performed By: #### M G, URIC, RENAL #### [facility] [address] [place] [address] Dr. Hari Palmer Chloride [Moles/Vol] 104 mmol/L Normal 98-107 [facility] Comment on above: Performed By: #### M G, URIC, RENAL #### [facility] [address] [place] [address] Dr. Hari Palmer CO2 [Moles/Vol] 21.8 mmol/L Normal 21.0-32.0 [facility] Comment on above: Performed By: #### M G, URIC, RENAL #### [facility] [address] [place] [address] Dr. Hari Palmer Creatinine [Mass/Vol] 3.83 mg/dL Critically high 0.55-1.02 [facility] Comment on above: Performed By: #### M G, URIC, RENAL #### [facility] [address] [address] [address] Hari Palmer EGFR-AF ESTONIAN 15 mL/min/1.73m2 Critically low >=60 [facility] Comment on above: Performed By: #### M G, URIC, RENAL #### [facility] [address] [place] [address] Dr. Hari Palmer EGFR-NON AF ESTONIAN 13 mL/min/1.73m2 Critically low >=60 [facility] Comment on above: Performed By: #### M Edy, URIC, RENAL #### [facility] [address] [place] [address] Dr. Hari Palmer Glucose [Mass/Vol] 108 mg/dL Critically high 74-106 T [facility] Comment on above: Performed By: #### M Edy, URIC, RENAL #### [facility] [address] [place] [address] Dr. Hari Palmer Phosphate [Mass/Vol] 5.4 mg/dL Critically high 2.6-4.7 [facility] Comment on above: Performed By: #### M G, URIC, RENAL #### [facility] [address] [place] [address] Dr. Hari Palmer Potassium [Moles/Vol] 3.9 mmol/L Normal 3.5-5.1 [facility] Comment on above: Performed By: #### M G, URIC, RENAL #### [facility] [address] [place] [address] Dr. Hari Palmer Sodium [Moles/Vol] 137 mmol/L Normal 136-145 [facility] Comment on above: Performed By: #### M G, URIC, RENAL #### [facility] [address] [address] [address] Hari Palmer Urea nitrogen [Mass/Vol] 47.0 mg/dL Critically high 7.0-18.0 [facility] Comment on above: Performed By: #### M G, URIC, RENAL #### [facility] [address] [place] [address] Dr. Hari Palmer URIC ACID SERUMon 07-29-2022 Urate [Mass/Vol] 6.3 mg/dL Critically high 2.6-6.0 [facility] Comment on above: Performed By: #### M G, URIC, RENAL #### [facility] [address] [place] [address] Dr. Hari Palmer URINE T PROTEIN CREAT RATIOo n 07-29-2022 Protein (U) [Mass/Vol] 29.7 mg/dL Critically high <=12.0 [facility] Comment on above: Performed By: #### M G, URIC, RENAL #### [facility] [address] [place] [address] Dr. Hari Palmer UR PROT CREAT RAT 0.56 Normal [facility] Comment on above: Performed By: #### M Edy, URIC, RENAL #### [facility] [address] [place] [address] Dr. Hari Palmer URINE CREAT 53.35 mg/dL Normal 20.00-300.00 [facility] Comment on above: Performed By: #### M G, URIC, RENAL #### [facility] [address] [place] [address] Dr. Hari Palmer VITAMIN D 25 OHon 07-29-2022 VIT D 25-OH 38.8 ng/mL Normal [facility] Comment on above: Performed By: #### M G, URIC, RENAL #### [facility] [address] [place] [address] Dr. Hari Palmer VIT D RANGES SEE BELOW Normal [facility] Comment on above: Result Comment: <20 ng/mL Vit D deficient 20 - <30 ng/mL Vit D insufficient 30 - 100 ng/mL Vit D sufficient >100 ng/mL Potential Toxicity Performed By: #### M G, URIC, RENAL #### [facility] [address] [place] [address] Dr. Hari Palmer Albumin [Mass/volume] in Ser um or PlasmaOrdered By: Stanley Forman on 06-20-2022 Albumin [Mass/Vol] 3.9 g/dL 3.2-5.5 [facility] Basophils Auto (Bld) [#/Vol] Ordered By: Stanley Forman on 06-20-2022 Basophils (Bld) [#/Vol] 0.1 10*3/uL 0.0-0.2 [facility] Basophils/100 WBC Auto (Bld) Ordered By: Stanley Forman on 06-20-2022 Basophils/100 WBC (Bld) 0.7 % . [facility] Blood hemoglobin measurement (mass/volume)Ordered By: Stanley Forman on 06-20-2022 Hemoglobin (Bld) [Mass/Vol] 10.8 g/dL 11.8-15.4 [facility] Blood leukocytes automated c ount (number/volume)Ordered By: Stanley Forman on 06-20-2022 WBC (Bld) [#/Vol] 11.8 10*3/uL 4.5-11.0 [facility] C reactive protein [Mass/vol ume] in Serum or PlasmaOrdered By: Stanley Forman on 06-20-2022 CRP [Mass/Vol] 5.2 mg/dL 0.0-1.0 [facility] Creatinine and Glomerular fi ltration rate.predicted panel (S/P/Bld)Ordered By: Stanley Forman on 06-20-2022 Creatinine [Mass/Vol] 4.49 mg/dL 0.44-1.03 [facility] Eosinophils Auto (Bld) [#/Vo l]Ordered By: Stanley Forman on 06-20-2022 Eosinophils (Bld) [#/Vol] 0.4 10*3/uL 0.0-0.45 [facility] Eosinophils/100 WBC Auto (Bl d)Ordered By: Stanley Forman on 06-20-2022 Eosinophils/100 WBC (Bld) 3.2 % . [facility] Erythrocyte distribution wid th Auto (RBC) [Ratio]Ordered By: Stanley Forman on 06-20-2022 Erythrocyte distribution width (RBC) [Ratio] 14.0 % 11.9-15.3 [facility] Erythrocyte sedimentation ra te by Photometric methodOrdered By: Stanley Forman on 06-20-2022 ESR Photometric method (Bld) [Velocity] 67 mm/hr 0-19 [facility] Estimated glomerular filtrat ion rate (GFR) non- AmericanOrdered By: Stanley Forman on 06-20-2022 GFR/1.73 sq M.predicted among non-blacks MDRD (S/P/Bld) [Vol rate/Area] 11 mL/Min [facility] Globulin Calc (S) [Mass/Vol] Ordered By: Stanley Forman on 06-20-2022 Globulin (S) [Mass/Vol] 3.5 g/dL F [facility] Hematocrit Auto (Bld) [Volum e fraction]Ordered By: Stanley Forman on 06-20-2022 Hematocrit (Bld) [Volume fraction] 33.1 % 34.0-46.4 [facility] - Hematology and Cell countsOrdered By: Stanley Forman on 06-20-2022 Nucleated RBC/100 WBC (Bld) [Ratio] 0.0 % 0-0.5 [facility] Lymphocytes Auto (Bld) [#/Vo l]Ordered By: Stanley Forman on 06-20-2022 Lymphocytes (Bld) [#/Vol] 1.5 10*3/uL 1.00-4.8 [facility] Lymphocytes/100 WBC Auto (Bl d)Ordered By: Stanley Forman on 06-20-2022 Lymphocytes/100 WBC (Bld) 12.3 % . [facility] MCH Auto (RBC) [Entitic mass ]Ordered By: Stanley Forman on 06-20-2022 MCH (RBC) [Entitic mass] 31.1 pg 24.7-34.3 [facility] MCHC Auto (RBC) [Mass/Vol]Or dered By: Stanley Forman on 06-20-2022 MCHC (RBC) [Mass/Vol] 32.5 g/dL 32.0-35.[address] [facility] MCV Auto (RBC) [Entitic vol] Ordered By: Stanley Forman on 06-20-2022 MCV (RBC) [Entitic vol] 95.6 fL 80-100 [facility] Monocytes Auto (Bld) [#/Vol] Ordered By: Stanley Forman on 06-20-2022 Monocytes (Bld) [#/Vol] 0.5 10*3/uL 0.0-0.8 [facility] Monocytes/100 WBC Auto (Bld) Ordered By: Stanley Forman on 06-20-2022 Monocytes/100 WBC (Bld) 4.1 % . [facility] Neutrophils Auto (Bld) [#/Vo l]Ordered By: Stanley Forman on 06-20-2022 Neutrophils (Bld) [#/Vol] 9.4 10*3/uL 1.8-7.7 [facility] Neutrophils/100 WBC Auto (Bl d)Ordered By: Stanley Forman on 06-20-2022 Neutrophils/100 WBC (Bld) 79.7 % . [facility] No Panel InformationOrdered By: Stanley Forman on 06-20-2022 Estimated GFR () 13 mL/Min [facility] Comment on above: GFR estimated refere nce range: According to KDOQI guidelines, <60 ml/min/1.73m2 is sufficient to diagnose a patient with chronic kidney disease. Pharmacy Creatinine Clearance (Chem 16.48 [facility] Platelet mean volume Auto (B ld) [Entitic vol]Ordered By: Stanley Forman on 06-20-2022 Platelet mean volume (Bld) [Entitic vol] 7.0 fL 6.3-10.7 [facility] Platelets Auto (Bld) [#/Vol] Ordered By: Stanley Forman on 06-20-2022 Platelets (Bld) [#/Vol] 287 10*3/uL 150-450 [facility] Protein [Mass/volume] in Ser um or PlasmaOrdered By: Stanley Forman on 06-20-2022 Protein [Mass/Vol] 7.4 g/dL 6.1-7.9 [facility] RBC Auto (Bld) [#/Vol]Ordere d By: Stanley Forman on 06-20-2022 RBC (Bld) [#/Vol] 3.46 10*6/uL 3.60-5.00 [facility] Serum or plasma alanine cesar otransferase measurement without P-5'-P (enzymatic activiOrdered By: Stanley Forman on 06-20-2022 ALT No additional P-5'-P [Catalytic activity/Vol] 11 U/L 10-60 [facility] Serum or plasma albumin/glob ulin mass ratioOrdered By: Stanley Forman on 06-20-2022 Albumin/Globulin [Mass ratio] 1.1 {ratio} [facility] Serum or plasma alkaline gina sphatase measurement (enzymatic activity/volume)Ordered By: Stanley Forman on 06-20-2022 ALP [Catalytic activity/Vol] 82 U/L 32-92 [facility] Serum or plasma anion gap de terminationOrdered By: Stanley Forman on 06-20-2022 Anion gap [Moles/Vol] 16.2 mmol/L 6.0-15.0 [facility] Serum or plasma aspartate am inotransferase measurement (enzymatic activity/volume)Ordered By: Stanley Forman on 06-20-2022 AST [Catalytic activity/Vol] 15 U/L 10-42 [facility] Serum or plasma calcium ge urement (mass/volume)Ordered By: Stanley Forman on 06-20-2022 Calcium [Mass/Vol] 9.3 mg/dL 8.2-10.2 [facility] Serum or plasma chloride lee surement (moles/volume)Ordered By: Stanley Forman on 06-20-2022 Chloride [Moles/Vol] 103 mmol/L 95-114 [facility] Serum or plasma glucose ge urement (mass/volume)Ordered By: Stanley Forman on 06-20-2022 Glucose [Mass/Vol] 75 mg/dL 70-100 [facility] Comment on above: ADA recommended refe rence rangeRandom Glucose Reference Range is dependent on time and content of last meal. Glucose of more than 200 mg/dL in a nonstressed, ambulatory subject supports the diagnosis of Diabetes Mellitus. Serum or plasma potassium me asurement (moles/volume)Ordered By: Stanely Forman on 06-20-2022 Potassium [Moles/Vol] 4.3 mmol/L 3.5-5.1 [facility] Serum or plasma sodium measu rement (moles/volume)Ordered By: Stanley Forman on 06-20-2022 Sodium [Moles/Vol] 135 mmol/L 136-146 [facility] Serum or plasma total biliru bin measurement (mass/volume)Ordered By: Stanleymario Forman on 06-20-2022 Bilirubin [Mass/Vol] 0.3 mg/dL 0.3-1.2 [facility] Serum or plasma total carbon dioxide measurement (moles/volume)Ordered By: Stanley Forman on 06-20-2022 CO2 [Moles/Vol] 20.1 mmol/L 22.0-30.0 [facility] Serum or plasma urea nitroge n measurement (mass/volume)Ordered By: Stanley Forman on 06-20-2022 Urea nitrogen [Mass/Vol] 42 mg/dL 06-28 [facility] COVID-19 Positive/NegativeOr dered By: Jesus Parham on 06-14-2022 SARS-CoV-2 (COVID-19) N gene AMBERLY+probe Ql (Resp) Negative Negative [facility] Comment on above: Testing for SARS-CoV -2 by RT-PCR This test was developed and its performance characteristics determined by [employer] ([employer]) and validated at the [facility]. This test has not been FDA [...] developed and its performance characteristics determined by [employer]) and validated at the [facility]. This test has not been FDA [...] (CA) 125 10.8 U/mL Normal 0.0-38.1 T [facility] Comment on above: Result Comment: [employer] Electrochemiluminescence Immunoassay (ECLIA) . Values obtained with different assay methods or kits cannot be used interchangeably. Results cannot be interpreted as absolute evidence of the presence or absence of malignant disease. Performed By: #### M G, URIC, RENAL #### [facility] [address] [address] [address] Hari Palmer CEAon 06-08-2022 CEA 0.9 ng/mL Normal 0.0-4.7 [facility] Comment on above: Result Comment: Nons mokers <3.9 Smokers <5.6 . [employer] Electrochemiluminescence Immunoassay (ECLIA) . Values obtained with different assay methods or kits cannot be used interchangeably. Results cannot be interpreted as absolute evidence of the presence or absence of malignant disease. Performed By: #### C EA. #### [facility] [address] [address] [address] Hari Palmer Basophils Auto (Bld) [#/Vol] Ordered By: Jesus Parham on 06-05-2022 Basophils (Bld) [#/Vol] 0.0 10*3/uL 0.0-0.2 [facility] Basophils/100 WBC Auto (Bld) Ordered By: Jesus Parham on 06-05-2022 Basophils/100 WBC (Bld) 0.3 % . F [facility] Blood hemoglobin measurement (mass/volume)Ordered By: Jesus Parham on 06-05-2022 Hemoglobin (Bld) [Mass/Vol] 12.0 g/dL 11.8-15.4 [facility] Blood leukocytes automated c ount (number/volume)Ordered By: Jesus Parham on 06-05-2022 WBC (Bld) [#/Vol] 8.5 10*3/uL 4.5-11.0 [facility] Creatinine and Glomerular fi ltration rate.predicted panel (S/P/Bld)Ordered By: Jesus Parham on 06-05-2022 Creatinine [Mass/Vol] 3.52 mg/dL 0.44-1.03 [facility] Eosinophils Auto (Bld) [#/Vo l]Ordered By: Jesus Parham on 06-05-2022 Eosinophils (Bld) [#/Vol] 0.2 10*3/uL 0.0-0.45 [facility] Eosinophils/100 WBC Auto (Bl d)Ordered By: Jesus Parham on 06-05-2022 Eosinophils/100 WBC (Bld) 2.7 % . [facility] Erythrocyte distribution wid th Auto (RBC) [Ratio]Ordered By: Jesus Parham on 06-05-2022 Erythrocyte distribution width (RBC) [Ratio] 14.2 % 11.9-15.3 [facility] Estimated glomerular filtrat ion rate (GFR) non- AmericanOrdered By: Jesus Parham on 06-05-2022 GFR/1.73 sq M.predicted among non-blacks MDRD (S/P/Bld) [Vol rate/Area] 14 mL/Min [facility] Hematocrit Auto (Bld) [Volum e fraction]Ordered By: Jesus Parham on 06-05-2022 Hematocrit (Bld) [Volume fraction] 35.8 % 34.0-46.4 [facility] - Hematology and Cell countsOrdered By: Jesus Parham on 06-05-2022 Nucleated RBC/100 WBC (Bld) [Ratio] 0.1 % 0-0.5 [facility] Lymphocytes Auto (Bld) [#/Vo l]Ordered By: Jesus Parham on 06-05-2022 Lymphocytes (Bld) [#/Vol] 1.6 10*3/uL 1.00-4.8 [facility] Lymphocytes/100 WBC Auto (Bl d)Ordered By: Jesus Parham on 06-05-2022 Lymphocytes/100 WBC (Bld) 19.3 % . [facility] MCH Auto (RBC) [Entitic mass ]Ordered By: Jesus Parham on 06-05-2022 MCH (RBC) [Entitic mass] 31.5 pg 24.7-34.3 [facility] MCHC Auto (RBC) [Mass/Vol]Or dered By: Jesus Parham on 06-05-2022 MCHC (RBC) [Mass/Vol] 33.3 g/dL 32.0-35.[address] [facility] MCV Auto (RBC) [Entitic vol] Ordered By: Jesus Parham on 06-05-2022 MCV (RBC) [Entitic vol] 94.4 fL 80-100 F [facility] Monocytes Auto (Bld) [#/Vol] Ordered By: Jesus Parham on 06-05-2022 Monocytes (Bld) [#/Vol] 0.3 10*3/uL 0.0-0.8 [facility] Monocytes/100 WBC Auto (Bld) Ordered By: Jesus Parham on 06-05-2022 Monocytes/100 WBC (Bld) 3.9 % . [facility] Neutrophils Auto (Bld) [#/Vo l]Ordered By: Jesus Parham on 06-05-2022 Neutrophils (Bld) [#/Vol] 6.2 10*3/uL 1.8-7.7 [facility] Neutrophils/100 WBC Auto (Bl d)Ordered By: Jesus Parham on 06-05-2022 Neutrophils/100 WBC (Bld) 73.8 % . [facility] No Panel InformationOrdered By: Jesus Parham on 06-05-2022 Estimated GFR () 17 mL/Min [facility] Comment on above: GFR estimated refere nce range: According to KDOQI guidelines, <60 ml/min/1.73m2 is sufficient to diagnose a patient with chronic kidney disease. Pharmacy Creatinine Clearance (Chem N/A [facility] Platelet mean volume Auto (B ld) [Entitic vol]Ordered By: Jesus Parham on 06-05-2022 Platelet mean volume (Bld) [Entitic vol] 7.3 fL 6.3-10.7 [facility] Platelets Auto (Bld) [#/Vol] Ordered By: Jesus Parham on 06-05-2022 Platelets (Bld) [#/Vol] 312 10*3/uL 150-450 [facility] RBC Auto (Bld) [#/Vol]Ordere d By: Jesus Parham on 06-05-2022 RBC (Bld) [#/Vol] 3.80 10*6/uL 3.60-5.00 [facility] Serum or plasma anion gap de terminationOrdered By: Jesus Parham on 06-05-2022 Anion gap [Moles/Vol] 15.1 mmol/L 6.0-15.0 [facility] Serum or plasma calcium ge urement (mass/volume)Ordered By: Jesus Parham on 06-05-2022 Calcium [Mass/Vol] 9.5 mg/dL 8.2-10.2 [facility] Serum or plasma chloride lee surement (moles/volume)Ordered By: Jesus Parham on 06-05-2022 Chloride [Moles/Vol] 106 mmol/L 95-114 [facility] Serum or plasma glucose ge urement (mass/volume)Ordered By: Jesus Parham on 06-05-2022 Glucose [Mass/Vol] 91 mg/dL 70-100 [facility] Comment on above: ADA recommended refe rence [...] on 06-05-2022 Potassium [Moles/Vol] 4.4 mmol/L 3.5-5.1 [facility] Serum or plasma sodium measu rement (moles/volume)Ordered By: Jesus Chungjaclyn on 06-05-2022 Sodium [Moles/Vol] 137 mmol/L 136-146 [facility] Serum or plasma total carbon dioxide measurement (moles/volume)Ordered By: Jesus Dione on 06-05-2022 CO2 [Moles/Vol] 20.3 mmol/L 22.0-30.0 [facility] Serum or plasma urea nitroge n measurement (mass/volume)Ordered By: Jesus Chungjaclyn on 06-05-2022 Urea nitrogen [Mass/Vol] 38 mg/dL 06-28 [facility] PTH INTACTon 04-29-2022 PTH, Intact 191 pg/mL Critically high 15-65 [facility] Comment on above: Performed By: #### M JUDIE Snow, RENAL #### [facility] [address] [address] [address] Hari Palmer VIT D 25-OH LABCORPon 2021 Vitamin D, 25-Hydroxy 33.6 ng/mL Normal 30.0-100.0 [facility] Comment on above: Result Comment: Ning min D deficiency has been defined by the [place] of [employer] and an Endocrine Society practice guideline as a level of serum 25-OH vitamin D less than 20 ng/mL (1,2). The Endocrine Society went on to further define vitamin D insufficiency as a level between 21 and 29 ng/mL (2). 1. IOM ([place] of [employer]). 2010. Dietary reference intakes for calcium and D. [place]: The National Academies Press. 2. Chantel MF, Landen [place], Eliseo STEPHENS, et al. Evaluation, treatment, and prevention of vitamin D deficiency: an Endocrine Society clinical practice guideline. JCEM. 2010; 96(7):1911-30. Performed By: #### M G URIC, RENAL #### [facility] [address] [id number] Hari Palmer ABO AND RH TYPEon 04-27-2022 ABO and Rh group Nom (Bld) ABO Rh Typing O Rh Positive Normal [facility] Comment on above: Performed By: #### M G URIC, RENAL #### [facility] [address] [place] [address] Dr. Hari Palmer FERRITINon 04-27-2022 Ferritin [Mass/Vol] 273.0 ng/mL Critically high 6.2-137.0 [facility] Comment on above: Performed By: #### M G, URIC, RENAL #### [facility] [address] [place] [address] Dr. Hari Palmer HEMOGRAM AND PLATELon 2021 Hematocrit (Bld) [Volume fraction] 33.9 % Critically low 36.0-48.0 [facility] Comment on above: Performed By: #### M G, URIC, RENAL #### [facility] [address] [place] [address] Dr. Hari Palmer Hemoglobin (Bld) [Mass/Vol] 11.4 g/dL Critically low 12.0-16.0 [facility] Comment on above: Performed By: #### M G, URIC, RENAL #### [facility] [address] [place] [address] Dr. Hari Palmer MCH (RBC) [Entitic mass] 31.7 pg Normal 26.7-34.0 [facility] Comment on above: Performed By: #### M G, URIC, RENAL #### [facility] [address] [place] [address] Dr. Hari Palmer MCHC (RBC) [Mass/Vol] 33.6 g/dL Normal 29.9-35.2 [facility] Comment on above: Performed By: #### M G, URIC, RENAL #### [facility] [address] [place] [address] Dr. Hari Palmer MCV (RBC) [Entitic vol] 94.2 fL Normal 81.0-99.0 [facility] Comment on above: Performed By: #### M G, URIC, RENAL #### [facility] [address] [place] [address] Dr. Hari Palmer PLT 333 103/ul Normal 150-450 [facility] Comment on above: Performed By: #### M G, URIC, RENAL #### [facility] [address] [place] [address] Dr. Hari Palmer RBC 3.60 106/ul Critically low 4.20-5.40 [facility] Comment on above: Performed By: #### M G, URIC, RENAL #### [facility] [address] [place] [address] Dr. Hari Palmer WBC 9.7 103/ul Normal 4.0-11.0 [facility] Comment on above: Performed By: #### M G, URIC, RENAL #### [facility] [address] [place] [address] Dr. Hari Palmer IRON AND TIBCon 04-27-2022 % SATURATION 20.1 % Normal [facility] Comment on above: Performed By: #### M G, URIC, RENAL #### [facility] [address] [place] [address] Dr. Hari Palmer Iron [Mass/Vol] 57.0 ug/dL Normal 50.0-170.0 [facility] Comment on above: Performed By: #### M G, URIC, RENAL #### [facility] [address] [place] [address] Dr. Hari Palmer TIBC DIRECT 283.0 ug/dL Normal 250.0-450.0 [facility] Comment on above: Performed By: #### M G, URIC, RENAL #### [facility] [address] [place] [address] Dr. Hari Palmer MAGNESIUMon 04-27-2022 Magnesium [Mass/Vol] 2.1 mg/dL Normal 1.8-2.4 [facility] Comment on above: Performed By: #### R ENPRADEEP, URIC, MG #### [facility] [address] [place] [address] Dr. Hari Palmer RENAL FUNCTION PANELon 04-27 Albumin [Mass/Vol] 3.6 g/dL Normal 3.4-5.0 [facility] Comment on above: Performed By: #### R ENAL, URIC, MG #### [facility] [address] [place] [address] Dr. Hari Palmer Calcium [Mass/Vol] 9.0 mg/dL Normal 8.5-10.1 [facility] Comment on above: Performed By: #### R ENAL, URIC, MG #### [facility] [address] [address] [address] Hari Palmer Chloride [Moles/Vol] 104 mmol/L Normal 98-107 [facility] Comment on above: Performed By: #### R ENAL, URIC, MG #### [facility] [address] [place] [address] Dr. Hari Palmer CO2 [Moles/Vol] 23.0 mmol/L Normal 21.0-32.0 [facility] Comment on above: Performed By: #### R ENAL, URIC, MG #### [facility] [address] [place] [address] Dr. Hari Palmer Creatinine [Mass/Vol] 3.38 mg/dL Critically high 0.55-1.02 [facility] Comment on above: Performed By: #### R ENAL, URIC, MG #### [facility] [address] [place] [address] Dr. Hari Palmer EGFR-AF ESTONIAN 18 mL/min/1.73m2 Critically low >=60 [facility] Comment on above: Performed By: #### R ENAL, URIC, MG #### [facility] [address] [place] [address] Dr. Hari Palmer EGFR-NON AF ESTONIAN 15 mL/min/1.73m2 Critically low >=60 [facility] Comment on above: Performed By: #### R ENAL, URIC, MG #### [facility] [address] [place] [address] Dr. Hari Palmer Glucose [Mass/Vol] 113 mg/dL Critically high 74-106 T [facility] Comment on above: Performed By: #### R ENAL, URIC, MG #### [facility] [address] [place] [address] Dr. Hari Palmer Phosphate [Mass/Vol] 4.4 mg/dL Normal 2.6-4.7 [facility] Comment on above: Performed By: #### R ENAL, URIC, MG #### [facility] [address] [place] [address] Dr. Hari Palmer Potassium [Moles/Vol] 4.0 mmol/L Normal 3.5-5.1 [facility] Comment on above: Performed By: #### R ENAL, URIC, MG #### [facility] [address] [place] [address] Dr. Hari Palmer Sodium [Moles/Vol] 137 mmol/L Normal 136-145 [facility] Comment on above: Performed By: #### R ENAL, URIC, MG #### [facility] [address] [place] [address] Dr. Hari Palmer Urea nitrogen [Mass/Vol] 44.0 mg/dL Critically high 7.0-18.0 [facility] Comment on above: Performed By: #### R ENAL, URIC, MG #### [facility] [address] [place] [address] Dr. Hari Palmer URIC ACID SERUMon 04-27-2022 Urate [Mass/Vol] 6.6 mg/dL Critically high 2.6-6.0 [facility] Comment on above: Performed By: #### R ENAL, URIC, MG #### [facility] [address] [place] [address] Dr. Hari Palmer URINE T PROTEIN CREAT RATIOo n 04-27-2022 Protein (U) [Mass/Vol] 31.4 mg/dL Critically high <=12.0 [facility] Comment on above: Performed By: #### M G, URIC, RENAL #### [facility] [address] [place] [address] Dr. Hari Palmer UR PROT CREAT RAT 0.55 Normal [facility] Comment on above: Performed By: #### M G, URIC, RENAL #### [facility] [address] [place] [address] Dr. Hari Palmer URINE CREAT 57.50 mg/dL Normal 20.00-300.00 [facility] Comment on above: Performed By: #### M G, URIC, RENAL #### [facility] [address] [place] [address] Dr. Hari Palmer ECHOCARDIO M/2D COMPLETEon 0 03-29-2022 ECHOCARDIO M/2D COMPLETE Patient: MANDEEP PURI Exam Date: 03/29/2022 : 1975 Gender:F Ordering : HAIDER FRENCH M.D. Admission #: [id number] Family : Order #: [id number] CLICK HERE TO VIEW EXAM ECHOCARDIOGRAM REPORT [...] Area(A4C): 17.00 cm2 Left Atrium Systolic Volume(A2C): 43265 mm3 Left Atrium Systolic Volume(A4C): 48648 mm3 Mitral Valve MV E to A Ratio: 0.80 Deceleration Beltrami: 3210 mm/s2 Mitral Valve A-Wave Peak Velocity: [...] 04/01/2022 at 12:33 Normal [facility] COVID-19 SOFIAOrdered By: Mary Beth Jones on 03-28-2022 SARS-CoV+SARS-CoV-2 (COVID-19) Ag IA.rapid Ql (Resp) Negative Negative [facility] Comment on above: This is a duplicate Ada SARS Antigen (GLORIA) result to be used for statistical tracking purpose only. No Panel InformationOrdered By: Shabbir Jones on 03-28-2022 SARS Antigen (LFIA) [facility] BLOOD TYPE AND RHon 02-13-20 22 ABO INTERPRETATION O Normal [facility] Comment on above: Performed By: #### 3 1397, [id number], 55452, [id number], [id number] #### [facility] [address] [facility] [place] [address], [facility] RH INTERPRETATION Positive Normal [facility] Comment on above: Performed By: #### 3 1397, 06646, 95583, 65751, 54074 #### [facility] [address] BNP (B-TYPE NATRIURETIC PEPT JOEL)on 02-12-2022 Natriuretic peptide B (Bld) [Mass/Vol] 10 pg/mL Normal 0-100 [facility] Comment on above: Result Comment: Give n the appropriate clinical setting a BNP result of >100 pg/mL indicates congestive heart failure. Performed By: #### 8 [id number], 81389 #### [facility] [address] CBC W/DIFFon 02-12-2022 ABS IMM GRANS 0.2 10*3/uL Normal 0.0-0.2 [facility] Comment on above: Performed By: #### 3 1397, 97077, 42409, 23490, 13302 #### [facility] [address] ABS NEUTROPHILS 7.8 10*3/uL High 1.6-7.6 [facility] Comment on above: Performed By: #### 3 1397, 44481, 01255, 85338, 02325 #### [facility] [address] Basophils (Bld) [#/Vol] 0.1 10*3/uL Normal 0.0-0.2 [facility] Comment on above: Performed By: #### 3 1397, 79994, 66450, 66195, 96572 #### [facility] [address] Basophils/100 WBC (Bld) 0.6 % Normal 0.0-1.0 [facility] Comment on above: Performed By: #### 3 1397, 08103, 09496, 27418, 70323 #### [facility] [address] [place] [address], [facility] Eosinophils (Bld) [#/Vol] 0.3 10*3/uL Normal 0.0-0.5 [facility] Comment on above: Performed By: #### 3 1397, 31574, 72632, 65054, 36204 #### [facility] [address] [place] [address], [facility] Eosinophils/100 WBC (Bld) 2.5 % Normal 0.0-6.0 [facility] Comment on above: Performed By: #### 3 1397, 48190, 97661, 17786, 84521 #### [facility] [address] [place] [address], [facility] Erythrocyte distribution width (RBC) [Ratio] 13.6 % Normal 11.5-15.0 [facility] Comment on above: Performed By: #### 3 1397, 15036, 00430, 58982, 79550 #### [facility] [address] [place] [address], [facility] Hematocrit (Bld) [Volume fraction] 34.5 % Low 36.0-45.0 [facility] Comment on above: Performed By: #### 3 1397, 37465, 80115, 90068, 78281 #### [facility] [address] [place] [id number], [facility] Hemoglobin (Bld) [Mass/Vol] 11.3 g/dL Low 12.0-15.0 [facility] Comment on above: Performed By: #### 3 1397, 44201, 57195, 10812, 37688 #### [facility] [address] [place] [address], [facility] IMMATURE GRANS 1.4 % High 0.0-1.0 [facility] Comment on above: Performed By: #### 3 1397, 19106, 95344, 53760, 91369 #### [facility] [address] [place] [address], [facility] Lymphocytes (Bld) [#/Vol] 2.0 10*3/uL Normal 1.2-4.0 [facility] Comment on above: Performed By: #### 3 1397, 71994, 52995, 02903, 04284 #### [facility] [address] [facility] [place] [address], [facility] Lymphocytes/100 WBC (Bld) 18.6 % Low 20.0-45.0 [facility] Comment on above: Performed By: #### 3 1397, 13913, 31617, 82255, 27700 #### [facility] [address] [facility] [place] [address], [facility] MCH (RBC) [Entitic mass] 31.3 pg Normal 27.0-33.0 [facility] Comment on above: Performed By: #### 3 1397, 03171, 11844, 01129, 84352 #### [facility] [address] [facility] [place] [address], [facility] MCHC (RBC) [Mass/Vol] 32.8 g/dL Normal 32.0-35.0 [facility] Comment on above: Performed By: #### 3 1397, 09164, 93198, 26043, 05542 #### [facility] [address] [facility] [place] [address], [facility] MCV (RBC) [Entitic vol] 95.6 fL Normal 82.0-98.0 [facility] Comment on above: Performed By: #### 3 1397, 30303, 32236, 60310, 80794 #### [facility] [address] [facility] [place] [address], [facility] Monocytes (Bld) [#/Vol] 0.5 10*3/uL Normal 0.1-1.0 [facility] Comment on above: Performed By: #### 3 1397, 98623, 58790, 07312, 79117 #### [facility] [address] [place] [address], [facility] MONOS 4.9 % Low 5.0-12.0 [facility] Comment on above: Performed By: #### 3 1397, 08550, 65583, 65311, 89061 #### [facility] [address] [facility] [address], [facility] Neutrophils/100 WBC (Bld) 72.0 % Normal 40.0-72.0 [facility] Comment on above: Performed By: #### 3 1397, 69962, 44949, 67917, 99981 #### [facility] 3000 [facility] [place] [address], [facility] Nucleated RBC/100 WBC (Bld) [Ratio] 0 % Normal 0-0 [facility] Comment on above: Performed By: #### 3 1397, 82560, 76289, 04209, 58563 #### [facility] [address] [facility] [place] [address], [facility] PLAT CNT 315 10*3/uL Normal 150-400 [facility] Comment on above: Performed By: #### 3 1397, 09189, 25734, 97494, 44775 #### [facility] [address] [facility] [place] [address], [facility] RBC (Bld) [#/Vol] 3.61 10*6/uL Low 3.80-5.00 [facility] Comment on above: Performed By: #### 3 1397, 13871, 42069, 24185, 09442 #### [facility] [address] [facility] [place] [address], [facility] WBC (Bld) [#/Vol] 10.78 10*3/uL High 4.00-10.60 [facility] Comment on above: Performed By: #### 3 1397, 56830, 03596, 77486, 23427 #### [facility] [address] [facility] [place] [address], [facility] CHEST AND LATERALon 02-13-20 22 CHEST AND LATERAL [facility] Department of Radiology [address] [place] [id number] == Patient Name: MANDEEP PURI : 1975 [...] pathology. Electronically signed: Royal Dominguez. Transcribed by: [email or web address], User Resident: Electronically Signed by: ROYAL DOMINGUEZ @ 02/13/2022 11:48 AM Normal [facility] CMV IGG BLOODon 02-12-2022 CMV IGG 3.13 Normal [facility] Comment on above: Result Comment: NORM AL RANGES: < OR = 0.9O NEGATIVE ; NO DETECTABLE IgG ANTIBODY TO CMV 0.91 - 1.09 EQUIVOCAL; REPEAT TESTING SUGGESTED > OR = 1.10 POSITIVE ; INDICATES PRESENCE OF DETECTABLE IgG ANTIBODY TO CMV Performed By: #### 3 1397, 13704, 31237, 60859, 46793 #### [facility] [address] [place] [address], [facility] COMP METABOLIC PANELon 02-12 Albumin [Mass/Vol] 4.5 g/dL Normal 3.5-5.7 [facility] Comment on above: Performed By: #### 2 2505, 55886, 88762 #### [facility] [address] [place] [address], [facility] ALKALINE PHOSPH 89 IU/L Normal 34-104 [facility] Comment on above: Performed By: #### 2 2505, 54697, 25963 #### [facility] [address] [place] [address], [facility] ALT [Catalytic activity/Vol] 12 U/L Normal 7-52 [facility] Comment on above: Performed By: #### 2 2505, 57128, 96825 #### [facility] [address] [place] [address], [facility] AST [Catalytic activity/Vol] 13 U/L Normal 13-39 [facility] Comment on above: Performed By: #### 2 2505, 26879, 66804 #### [facility] [address] [place] [address], [facility] Bilirubin [Mass/Vol] 0.3 mg/dL Normal 0.3-1.0 [facility] Comment on above: Performed By: #### 2 2505, 60737, 74204 #### [facility] [address] [place] [address], [facility] Calcium [Mass/Vol] 9.5 mg/dL Normal 8.6-10.3 [facility] Comment on above: Performed By: #### 2 2505, 28585, 93992 #### [facility] [address] [place] [address], [place] Chloride [Moles/Vol] 103 mmol/L Normal 98-107 [facility] Comment on above: Performed By: #### 2 2505, 58613, 69918 #### [facility] [address] [place] [address], [place] CO2 [Moles/Vol] 22 mmol/L Normal 21-31 [facility] Comment on above: Performed By: #### 2 2505, 70103, 37443 #### [facility] [address] [place] [address], [place] Creatinine [Mass/Vol] 3.51 mg/dL High 0.60-1.20 [facility] Comment on above: Performed By: #### 2 2505, 44545, 82393 #### [facility] [address] [place] [address], [place] eGFR- 17 ml/min/1.73sq m Abnormal >60 [facility] Comment on above: Performed By: #### 2 2505, 19905, 87348 #### [facility] [address] [place] [address], [place] eGFR- non- 14 ml/min/1.73sq m Abnormal >60 [facility] Comment on above: Performed By: #### 2 2505, 53559, 08645 #### [facility] [address] [place] [address], [place] Glucose [Mass/Vol] 100 mg/dL Normal 70-100 [facility] Comment on above: Performed By: #### 2 2505, 99597, 54491 #### [facility] [address] [place] [address], [place] Potassium [Moles/Vol] 3.9 mmol/L Normal 3.5-5.1 [facility] Comment on above: Performed By: #### 2 2505, 86074, 73882 #### [facility] [address] [place] [address], [facility] Protein [Mass/Vol] 8.0 g/dL Normal 6.0-8.3 [facility] Comment on above: Performed By: #### 2 2505, 38982, 39136 #### [facility] [address] [facility] [place] [address], [facility] Sodium [Moles/Vol] 136 mmol/L Normal 136-145 [facility] Comment on above: Performed By: #### 2 2505, 06387, 62217 #### [facility] [address] [facility] [place] [address], [facility] Urea nitrogen [Mass/Vol] 41 mg/dL High 7-25 [facility] Comment on above: Performed By: #### 2 2505, 62971, 61509 #### [facility] [address] [facility] [place] [address], [facility] CREATININE URINE RANDOMon Creatinine (U) [Mass/Vol] 63.0 mg/dL Normal [facility] Comment on above: Result Comment: Ther e are no established reference values for random urine specimens Performed By: #### 3 1397, 76337, 90206, 96781, 95114 #### [facility] 3000 [facility] [place] [address], [facility] CT RENAL RECIPIENT ABDOMEN A ND PEVLIS WO CONTRASTon 02-12-2022 CT RENAL RECIPIENT ABDOMEN AND PEVLIS WO CONTRAST [facility] Department of Radiology [address] [place] [address] == Patient Name: MANDEEP PURI : 1975 Sex: F Age: Race: White Pt. Location: 20 Patient Status: O Ordered Date: 02/12/2022 1:55:00 PM Completed Date: 02/12/2022 02:04 PM Requesting Provider: HAIDER FRENCH Attending Provider: HAIDER FRENCH Report Copy To: Signs & Symptoms: Z01.818 Encounter for other preprocedural examination I10 History: [place] Comments: , Pre-kidney transplant work-up. Please evaluate [...] achievable. Electronically signed: NAN SARAVIA. Transcribed by: [email or web address], User Resident: Electronically Signed by: NAN SARAVIA @ 02/12/2022 02:59 PM Normal [facility] Comment on above: Order Comment: , [...] Bilirubin.direct [Mass/Vol] 0.0 mg/dL Normal 0.0-0.2 [facility] Comment on above: Performed By: #### 2 1985, 84037, 98770 #### [facility] [address] BRETT LAGUERRE VIRUS ABon 05-1 EB VCA IGG 2.35 Normal [facility] Comment on above: Order Comment: CONSI STENT WITH PAST EBV INFECTION Result Comment: NORM AL RANGES: < OR = 0.9O NEGATIVE ; NO DETECTABLE IgG ANTIBODY TO EBV-VCA 0.91 - 1.09 EQUIVOCAL; REPEAT TESTING SUGGESTED > OR = 1.10 POSITIVE ; INDICATES PRESENCE OF DETECTABLE IgG ANTIBODY TO EBV Performed By: #### 3 1397, 57619, 55327, 93640, 15557 #### [facility] [address] EB VCA IGM 0.00 Normal [facility] Comment on above: Order Comment: CONSI STENT WITH PAST EBV INFECTION Result Comment: NORM AL RANGES: < OR = 0.9O NEGATIVE ; NO SIGNIFICANT LEVEL OF DETECTABLE EBV-VCA IgM AB 0.91 - 1.09 EQUIVOCAL; REPEAT TESTING SUGGESTED > OR = 1.10 POSITIVE ; SIGNIFICANT LEVEL OF DETECTABLE EBV-VCA IgM AB Performed By: #### 3 1397, 02880, 01670, 64949, 65906 #### [facility] [address] HEMOGLOBIN A1Con 02-12-2022 Glucose [Moles/Vol] 120 mmol/L Normal [facility] Comment on above: Performed By: #### 8 0313, 57890 #### [facility] [address] HbA1c (Bld) [Mass fraction] 5.8 % Normal 4.0-6.0 [facility] Comment on above: Performed By: #### 8 0413, 07767 #### [facility] [address] HEPATITIS A ANTIBODY IGMon 0 02-12-2022 HEP A AB IGM Non-Reactive Normal NONREACTIVE [facility] Comment on above: Performed By: #### 3 1397, 12777, 65620, 97816, 88773 #### [facility] [address] HEPATITIS B CORE ANTIBODYon 02-12-2022 HEP B CORE AB Non-Reactive Normal NONREACTIVE [facility] Comment on above: Performed By: #### 3 1397, 91046, 16220, 89845, 55326 #### [facility] [address] [place] [address], [facility] HEPATITIS B SURFACE ANTIBODY QUANTon 02-12-2022 HEP B SURF AB 1.14 mIU/ml Normal [facility] Comment on above: Result Comment: INTE RPRETATION: NONREACTIVE<8.00 mIU/mL INDETERMINATE8.00 - 12.00 mIU/mL REACTIVE>12 mIU/mL Performed By: #### 3 1397, 49849, 91102, 50827, 06654 #### [facility] [address] [place] [address], [facility] HEPATITIS B SURFACE ANTIGEN QUALon 02-12-2022 HEP B SURF AG QUAL Non-Reactive Normal NONREACTIVE [facility] Comment on above: Performed By: #### 3 1397, 94062, 06163, 37195, 33168 #### [facility] [address] [facility] [address] HEPATITIS C ANTIBODYon 02-12 ANTI-HCV Non-Reactive Normal NONREACTIVE [facility] Comment on above: Performed By: #### 3 1397, 98038, 94832, 00839, 37402 #### [facility] [address] [facility] [address] HIV1 AND 2 COMBO 4Gon 2021 HIV COMBO Negative Normal NEGATIVE [facility] Comment on above: Performed By: #### 3 1397, 19920, 43733, 12242, 88778 #### [facility] [address] [facility] [address] HLA ABC CLASS I TYPINGon A*-1 EQUIVALENT 1 Normal [facility] Comment on above: Order Comment: Some [...] to frequency. Performed By: #### 3 1397, 28644, 57012, 06639, 47299 #### [facility] [address] [place] [address], [facility] A*-2 EQUIVALENT 2 Normal [facility] Comment on above: Order Comment: Some [...] to frequency. Performed By: #### 3 1397, 14107, 86949, 79906, 79986 #### [facility] [address] [facility] [place] [address], [place] B*-1 EQUIVALENT 35 Normal [facility] Comment on above: Order Comment: Some [...] to frequency. Performed By: #### 3 1397, 75090, 05783, 27206, 92212 #### [facility] [address] [place] [address], [place] B*-2 EQUIVALENT 37 Normal [facility] Comment on above: Order Comment: Some [...] to frequency. Performed By: #### 3 1397, 60630, 87820, 78151, 59740 #### [facility] [address] [place] [address], [facility] Bw*-1 EQUIVALENT 4 Normal [facility] Comment on above: Order Comment: Some [...] to frequency. Performed By: #### 3 1397, 36266, 50797, 09536, 12595 #### [facility] [address] [facility] [place] [address], [facility] Bw*-2 EQUIVALENT 6 Normal [facility] Comment on above: Order Comment: Some [...] to frequency. Performed By: #### 3 1397, 38612, 86090, 49363, 88209 #### [facility] [address] [facility] [place] [address], [facility] C*-1 EQUIVALENT 4 Normal [facility] Comment on above: Order Comment: Some [...] to frequency. Performed By: #### 3 1397, 90903, 61147, 88138, 03013 #### [facility] [address] C*-2 EQUIVALENT 6 Normal [facility] Comment on above: Order Comment: Some [...] to frequency. Performed By: #### 3 1397, 24137, 86296, 60086, 33708 #### [facility] 3000 [facility]. [address] METHOD Class I Typing by PCR-SSOP Luminex Normal [facility] Comment on above: Order Comment: Some [...] to frequency. Performed By: #### 3 1397, 84855, 87196, 38789, 55266 #### [facility] [address] [place] [address], [facility] SIGNED BY Normal [facility] Comment on above: Order Comment: Some [...] to frequency. Result Comment: Sree Noriega, MS,CHT(DONA),MT(ASCP) Manager Shift, Transplant Immunology Performed By: #### 3 1397, 15278, 97200, 19941, 54007 #### [facility] [address] [place] [address], [facility] HLA DR CLASS II TYPINGon DPB1*-1 EQUIVALENT 04:01 Normal [facility] Comment on above: Order Comment: Some [...] to frequency. Performed By: #### 3 1397, 31959, 66392, 00862, 74719 #### [facility] [address] [place] [address], [place] DPB1*-2 EQUIVALENT 04:02 Normal [facility] Comment on above: Order Comment: Some [...] to frequency. Performed By: #### 3 1397, 86166, 34580, 94716, 14752 #### [facility] [address] [place] [address], [place] DQA1*-1 EQUIVALENT 01 Normal [facility] Comment on above: Order Comment: Some [...] to frequency. Performed By: #### 3 1397, 78466, 16081, 81906, 31166 #### [facility] [address] [place] [address], [place] DQA1*-2 EQUIVALENT 05 Normal [facility] Comment on above: Order Comment: Some [...] to frequency. Performed By: #### 3 1397, 41811, 22573, 66001, 44039 #### [facility] [address] [place] [address], [place] DQB1*-1 EQUIVALENT 7 Normal [facility] Comment on above: Order Comment: Some [...] to frequency. Performed By: #### 3 1397, 32952, 81340, 38423, 87241 #### [facility] [address] [place] [address], [place] DQB1*-2 EQUIVALENT 5 Normal [facility] Comment on above: Order Comment: Some [...] to frequency. Performed By: #### 3 1397, 41188, 10983, 32233, 75241 #### [facility] [address] [place] [address], [facility] DRB1*-1 EQUIVALENT 10 Normal [facility] Comment on above: Order Comment: Some [...] to frequency. Performed By: #### 3 1397, 21909, 02553, 71650, 52278 #### [facility] [address] [facility] [place] [address], [facility] DRB1*-2 EQUIVALENT 11 Normal [facility] Comment on above: Order Comment: Some [...] to frequency. Performed By: #### 3 1397, 44533, 27841, 32317, 94201 #### [facility] [address] [place] [id number], [facility] DRB3*-1 EQUIVALENT 52 Normal [facility] Comment on above: Order Comment: Some [...] to frequency. Performed By: #### 3 1397, 28345, 92474, 77665, 45734 #### [facility] 3000 [facility]. [address] METHOD Class II Typing by PCR-SSOP Luminex Normal [facility] Comment on above: Order Comment: Some [...] to frequency. Performed By: #### 3 1397, 35203, 84746, 58287, 75772 #### [facility] 3000 [facility]. [address] LIPID PROFILEon 02-12-2022 Cholesterol [Mass/Vol] 221 mg/dL High 120-200 Th e [facility] Comment on above: Result Comment: CHOL ESTEROL REFERENCE RANGE: 20 YEARS AND OLDER CARDIOVASCULAR RISK Less than 200 mg/dl Low Risk 200 to 239 mg/dl Borderline Risk 240 mg/dl and greater High Risk Performed By: #### 3 1397, 49035, 14788, 76621, 74485 #### [facility] 3000 [facility]. [address] Cholesterol in HDL [Mass/Vol] 40 mg/dL Normal 23-92 [facility] Comment on above: Result Comment: Slig ht variation in normal range could be due to gender and/or age. HDL CHOLESTEROL REFERENCE RANGE: 20 years and older Cardiovascular Risk > or =60 mg/dL Desirable 40 TO 59 mg/dL Low Risk <40 mg/dL High Risk Performed By: #### 3 1397, 65055, 41947, 59573, 15386 #### [facility] [address] [facility] [place] [address], [facility] Cholesterol in LDL [Mass/Vol] 101 mg/dL Normal 0-130 [facility] Comment on above: Result Comment: LDL IS A CALCULATION LDL IS ONLY VALID IF THE TRIG IS LESS THAN 400. Performed By: #### 3 1397, 82099, 56782, 89172, 34197 #### [facility] [address] [place] [address], [facility] Cholesterol.total/Patt sterol in HDL [Mass ratio] 5.5 {ratio} High .0-4.5 [facility] Comment on above: Performed By: #### 3 1397, 43430, 19790, 74100, 21379 #### [facility] [address] [place] [address], [facility] NON-HDL CHOLESTEROL 181 mg/dL Normal [facility] Comment on above: Performed By: #### 3 1397, 84708, 46173, 18861, 50787 #### [facility] [address] [place] [address], [facility] Triglyceride [Mass/Vol] 402 mg/dL High 40-149 T he [facility] Comment on above: Result Comment: TRIG LYCERIDE REFERENCE RANGE: 20 YEARS AND OLDER CARDIOVASCULAR RISK LESS THAN 150 mg/dl LOW RISK 150 TO 199 mg/dl BORDERLINE RISK 200 mg/dl AND GREATER HIGH RISK Performed By: #### 3 1397, 24326, 80537, 27492, 70364 #### [facility] [address] [place] [address], [facility] VLDL CHOL 80 mg/dL High 0-40 [facility] Comment on above: Performed By: #### 3 1397, 36266, 86936, 78425, 24941 #### [facility] [address] [place] [address], [facility] MUMPS IGG BLDon 02-12-2022 MUMPS IGG 5.46 Normal [facility] Comment on above: Result Comment: NORM AL RANGES: < OR = 0.9O NEGATIVE ; NO DETECTABLE IgG ANTIBODY TO MUMPS 0.91 - 1.09 EQUIVOCAL; REPEAT TESTING SUGGESTED > OR = 1.10 POSITIVE ; INDICATES PRESENCE OF DETECTABLE IgG ANTIBODY TO MUMPS Performed By: #### 3 1397, 84233, 65469, 97997, 61733 #### [facility] [address] RUBELLAon 02-12-2022 RUBELLA 4.79 Normal [facility] Comment on above: Result Comment: NORM AL RANGES: < OR = 0.9O NEGATIVE ; NO DETECTABLE IgG ANTIBODY TO RUBELLA 0.91 - 1.09 EQUIVOCAL; REPEAT TESTING SUGGESTED > OR = 1.10 POSITIVE ; INDICATES PRESENCE OF DETECTABLE IgG ANTIBODY TO RUBELLA VIRUS Performed By: #### 3 1397, 01010, 23544, 16287, 62547 #### [facility] [address] RUBEOLA MEASLES IGGon 2021 RUBEO IGG 6.43 Normal [facility] Comment on above: Result Comment: NORM AL RANGES: < OR = 0.9O NEGATIVE ; NO DETECTABLE IgG ANTIBODY TO RUBEOLA 0.91 - 1.09 EQUIVOCAL; REPEAT TESTING SUGGESTED > OR = 1.10 POSITIVE ; INDICATES PRESENCE OF DETECTABLE IgG ANTIBODY TO RUBEOLA Performed By: #### 3 1397, 89667, 52747, 20147, 08808 #### [facility] [address] SINGLE ANTIGEN CLASS 1on METHOD Class I Single Antigen Normal Th e [facility] Comment on above: Order Comment: Some [...] to frequency. Performed By: #### 3 1397, 43417, 37473, 68316, 70788 #### [facility] [address] [place] [address], [facility] SINGLE ANTIGEN CLASS 2on COMMENTS Normal [facility] Comment on above: Order Comment: Some [...] watch list. Performed By: #### 3 1397, 19049, 93645, 80920, 20227 #### [facility] [address] [place] [address], [facility] Result Comment: Clas s I Antigen Microbeads Potential specificites added to the watch list. CPRA 0 Normal [facility] Comment on above: Order Comment: Some [...] to frequency. Performed By: #### 3 1397, 14751, 58210, 13039, 48522 #### [facility] [address] [place] [address], [facility] METHOD Class II Single Antigen Normal T he [facility] Comment on above: Order Comment: Some [...] to frequency. Performed By: #### 3 1397, 32050, 75342, 74922, 44040 #### [facility] [address] [place] [address], [facility] T PROT UR Yesy 02-12-2022 U TOTAL PROTEIN 44.0 mg/dL Normal [facility] Comment on above: Result Comment: Ther e are no established reference values for random urine specimens Performed By: #### 3 1397, 19838, 23485, 53029, 56920 #### [facility] [address] [place] [address], [facility] TB QUANTIFERON PLUSon 2021 MITOGEN MINUS NIL >10.00 Normal [facility] Comment on above: Performed By: #### 3 1592 #### [facility] [address] [facility] [place] [address], [facility] NIL 0.03 IU/mL Normal [facility] Comment on above: Performed By: #### 3 1592 #### [facility] [address] [facility] [place] [address], [facility] TB QUANTIFERON Negative Normal NEGATIVE The [facility] Comment on above: Result Comment: Jadiel tiferon TB Gold Interpretation (IU/mL): NEGATIVE: M. tuberculosis infection not likely. Nil: <=8.0 TB1 Antigen minus Nil ([id number]): <0.35 OR >=0.35; and <25% of Nil value. TB2 Antigen minus Nil ([id number]-RYN): <0.35 OR >=0.35; and <25% of Nil [...] By: #### 3 1592 #### [facility] [address] [place] [address], [place] TB1 AG 0.05 IU/mL Normal [facility] Comment on above: Performed By: #### 3 1592 #### [facility] [address] [place] [address], [place] TB1 AG MINUS NIL 0.02 IU/mL Normal [facility] Comment on above: Performed By: #### 3 1592 #### [facility] [address] [place] [address], [place] TB2 AG 0.05 IU/mL Normal [facility] Comment on above: Performed By: #### 3 1592 #### [facility] [address] [place] [address], [place] TB2 AG MINUS NIL 0.02 IU/mL Normal [facility] Comment on above: Performed By: #### 3 1592 #### [facility] [address] [place] [address], [place] UA,MICROSCOPIC REQUIREDon Appearance (U) SL CLOUDY Abnormal CLEAR [facility] Comment on above: Performed By: #### 3 1397, 38036, 81791, 10577, 87508 #### [facility] [address] [place] [address], [place] Bilirubin Ql (U) Negative Normal NEGATIVE [facility] Comment on above: Performed By: #### 3 1397, 68005, 82484, 67733, 09623 #### [facility] [address] [place] [address], [place] Color (U) STRAW Abnormal YELLOW [facility] Comment on above: Performed By: #### 3 1397, 64091, 27846, 35693, 36882 #### [facility] [address] [place] [address], [place] EPIS MANY Abnormal FEW,OCC,NONE SEEN [facility] Comment on above: Performed By: #### 3 1397, 86753, 92067, 30248, 94041 #### [facility] [address] [place] [address], [facility] Glucose Ql (U) 50 mg/dL Abnormal NEGATIVE [facility] Comment on above: Performed By: #### 3 1397, 20202, 12043, 58186, 07233 #### [facility] [address] [place] [address], [facility] Hemoglobin Ql (U) Negative Normal NEGATIVE [facility] Comment on above: Performed By: #### 3 1397, 43263, 30415, 13119, 59407 #### [facility] [address] [place] [address], [facility] KETONE Negative Normal NEGATIVE [facility] Comment on above: Performed By: #### 3 1397, 19693, 35593, 79524, 52335 #### [facility] [address] [facility] [place] [address], [facility] LEUK MARYAN MODERATE Abnormal NEGATIVE [facility] Comment on above: Performed By: #### 3 1397, 04987, 60463, 57081, 53374 #### [facility] [address] [place] [address], [facility] Nitrite Ql (U) Negative Normal NEGATIVE [facility] Comment on above: Performed By: #### 3 1397, 07447, 39561, 23802, 98305 #### [facility] [address] [place] [address], [place] pH (U) 7.0 [pH] Normal 5.0-8.0 [facility] Comment on above: Performed By: #### 3 1397, 22612, 33596, 12937, 61901 #### [facility] [address] [place] [address], [facility] Protein Ql (U) 30 mg/dL Abnormal NEGATIVE [facility] Comment on above: Performed By: #### 3 1397, 62839, 80423, 87718, 89943 #### [facility] [address] [facility] [address], [facility] RBC NONE SEEN Normal NONE SEEN [facility] Comment on above: Performed By: #### 3 1397, 55969, 21815, 38800, 84109 #### [facility] [address] [facility]. [address] SPEC GRAV 1.009 Low 1.015-1.020 [facility] Comment on above: Performed By: #### 3 1397, 13996, 26692, 05024, 00285 #### [facility] [address] WBC UA 11-20 Abnormal NONE SEEN [facility] Comment on above: Performed By: #### 3 1397, 43237, 58159, 07659, 73453 #### [facility] [address] VARICELLA ZOSTER IGGon 02-12 VARICELLA IGG 3.29 Normal [facility] Comment on above: Result Comment: NORM AL RANGES: < OR = 0.9O NEGATIVE ; NO DETECTABLE IgG ANTIBODY TO VARICELLA-ZOSTER VIRUS 0.91 - 1.09 EQUIVOCAL; REPEAT TESTING SUGGESTED > OR = 1.10 POSITIVE ; INDICATES PRESENCE OF DETECTABLE IgG ANTIBODY TO VARICELLA-ZOSTER VIRUS Performed By: #### 3 1397, 70697, 78027, 30705, 82287 #### [facility] [address] PTH INTACTon 12-04-2021 PTH, Intact 165 pg/mL Critically high 15-65 [facility] Comment on above: Performed By: #### M G, URIC, RENAL #### [facility] [address] [address] [address] Hari Palmer FERRITINon 12-03-2021 Ferritin [Mass/Vol] 256.0 ng/mL Critically high 6.2-137.0 [facility] Comment on above: Performed By: #### M G, URIC, RENAL #### [facility] [address] [place] [address] Dr. Hari Palmer HEMOGRAM AND PLATELon 2021 Hematocrit (Bld) [Volume fraction] 33.7 % Critically low 36.0-48.0 [facility] Comment on above: Performed By: #### M G, URIC, RENAL #### [facility] [address] [place] [address] Dr. Hari Palmer Hemoglobin (Bld) [Mass/Vol] 10.9 g/dL Critically low 12.0-16.0 [facility] Comment on above: Performed By: #### M G, URIC, RENAL #### [facility] [address] [place] [address] Dr. Hari Palmer MCH (RBC) [Entitic mass] 31.4 pg Normal 26.7-34.0 [facility] Comment on above: Performed By: #### M G, URIC, RENAL #### [facility] [address] [place] [address] Dr. Hari Palmer MCHC (RBC) [Mass/Vol] 32.3 g/dL Normal 29.9-35.2 [facility] Comment on above: Performed By: #### M G, URIC, RENAL #### [facility] [address] [place] [address] Dr. Hari Palmer MCV (RBC) [Entitic vol] 97.1 fL Normal 81.0-99.0 [facility] Comment on above: Performed By: #### M G, URIC, RENAL #### [facility] [address] [place] [address] Dr. Hari Palmer PLT 314 103/ul Normal 150-450 [facility] Comment on above: Performed By: #### M G, URIC, RENAL #### [facility] [address] [place] [address] Dr. Hari Palmer RBC 3.47 106/ul Critically low 4.20-5.40 [facility] Comment on above: Performed By: #### M G, URIC, RENAL #### [facility] [address] [address] [address] Hari Palmer WBC 9.4 103/ul Normal 4.0-11.0 [facility] Comment on above: Performed By: #### M G, URIC, RENAL #### [facility] [address] [place] [address] Dr. Hari Palmer IRON AND TIBCon 12-03-2021 % SATURATION 19.0 % Normal [facility] Comment on above: Performed By: #### M G, URIC, RENAL #### [facility] [address] [place] [address] Dr. Hari Palmer Iron [Mass/Vol] 52.0 ug/dL Normal 37.0-170.0 [facility] Comment on above: Performed By: #### M G, URIC, RENAL #### [facility] [address] [place] [address] Dr. Hari Palmer TIBC DIRECT 273.0 ug/dL Normal 261.0-497.0 [facility] Comment on above: Performed By: #### M G, URIC, RENAL #### [facility] [address] [place] [address] Dr. Hari Palmer MAGNESIUMon 12-03-2021 Magnesium [Mass/Vol] 2.1 mg/dL Normal 1.6-2.3 [facility] Comment on above: Performed By: #### M G, URIC, RENAL #### [facility] [address] [place] [address] Dr. Hari Palmer RENAL FUNCTION PANELon 12-03 Albumin [Mass/Vol] 3.6 g/dL Normal 3.5-5.0 [facility] Comment on above: Performed By: #### M G, URIC, RENAL #### [facility] [address] [place] [address] Dr. Hari Palmer Calcium [Mass/Vol] 8.4 mg/dL Normal 8.4-10.2 [facility] Comment on above: Performed By: #### M G, URIC, RENAL #### [facility] [address] [place] [address] Dr. Hari Palmer Chloride [Moles/Vol] 101 mmol/L Normal 98-107 [facility] Comment on above: Performed By: #### M G, URIC, RENAL #### [facility] [address] [place] [address] Dr. Hari Palmer CO2 [Moles/Vol] 24.3 mmol/L Normal 22.0-30.0 [facility] Comment on above: Performed By: #### M G, URIC, RENAL #### [facility] [address] [place] [address] Dr. Hari Palmer Creatinine [Mass/Vol] 3.32 mg/dL Critically high 0.52-1.04 [facility] Comment on above: Performed By: #### M G, URIC, RENAL #### [facility] [address] [place] [address] Dr. Hari Palmer EGFR-AF ESTONIAN 18 mL/min/1.73m2 Critically low >=60 [facility] Comment on above: Performed By: #### M G, URIC, RENAL #### [facility] [address] [place] [address] Dr. Hari Palmer EGFR-NON AF ESTONIAN 15 mL/min/1.73m2 Critically low >=60 [facility] Comment on above: Performed By: #### M G, URIC, RENAL #### [facility] [address] [place] [address] Dr. Hari Palmer Glucose [Mass/Vol] 119 mg/dL Critically high 74-106 T [facility] Comment on above: Performed By: #### M G, URIC, RENAL #### [facility] [address] [place] [address] Dr. Hari Palmer Phosphate [Mass/Vol] 4.7 mg/dL Critically high 2.5-4.5 [facility] Comment on above: Performed By: #### M G, URIC, RENAL #### [facility] [address] [place] [address] Dr. Hari Palmer Potassium [Moles/Vol] 4.0 mmol/L Normal 3.4-5.0 [facility] Comment on above: Performed By: #### M G, URIC, RENAL #### [facility] [address] [place] [address] Dr. Hari Palmer Sodium [Moles/Vol] 135 mmol/L Critically low 137-145 [facility] Comment on above: Performed By: #### M G, URIC, RENAL #### [facility] [address] [place] [address] Dr. Hari Palmer Urea nitrogen [Mass/Vol] 42.0 mg/dL Critically high 7.0-17.0 [facility] Comment on above: Performed By: #### M G, URIC, RENAL #### [facility] [address] [place] [address] Dr. Hari Palmer UA RANDOM W/MICROSCOPICon BACTERIA TRACE Abnormal NONE SEEN [facility] Comment on above: Performed By: #### U AMIC #### [facility] [address] [place] [address] Dr. Hari Palmer Bilirubin Ql (U) Negative Normal NEGATIVE [facility] Comment on above: Performed By: #### U AMIC #### [facility] [address] [place] [address] Dr. Hari Palmer CAST NONE SEEN Normal NONE SEEN [facility] Comment on above: Performed By: #### U AMIC #### [facility] [address] [place] [address] Dr. Hari Palmer Clarity (U) CLEAR Normal CLEAR [facility] Comment on above: Performed By: #### U AMIC #### [facility] [address] [place] [address] Dr. Hari Palmer Color (U) LT. YELLOW Normal YELLOW [facility] Comment on above: Performed By: #### U AMIC #### [facility] [address] [place] [address] Dr. Hari Palmer Crystals LM Nom (Urine sed) NONE SEEN Normal NONE SEEN [facility] Comment on above: Performed By: #### U AMIC #### [facility] [address] [place] [address] Dr. Hari Palmer Epithelial cells LM Ql (Urine sed) FEW Abnormal NONE SEEN /RARE [facility] Comment on above: Performed By: #### U AMIC #### [facility] [address] [address] [address] Hari Palmer Glucose Ql (U) 100 mg/dl Abnormal NEGATIVE [facility] Comment on above: Performed By: #### U AMIC #### [facility] [address] [address] [address] Hari Palmer Hemoglobin Ql (U) TRACE-INTACT Abnormal NEGATIVE [facility] Comment on above: Performed By: #### U AMIC #### [facility] [address] [address] [address] Hari Palmer Ketones Ql (U) Negative Normal NEGATIVE [facility] Comment on above: Performed By: #### U AMIC #### [facility] [address] [place] [address] Dr. Hari Palmer LEUKOCYTES SMALL Abnormal NEGATIVE [facility] Comment on above: Performed By: #### U AMIC #### [facility] [address] [address] [address] Hari Palmer MUCOUS NONE SEEN Normal NONE SEEN [facility] Comment on above: Performed By: #### U AMIC #### [facility] [address] [address] [address] Hari Palmer Nitrite Ql (U) Negative Normal NEGATIVE [facility] Comment on above: Performed By: #### U AMIC #### [facility] [address] [address] [address] Hari Palmer pH (U) 6.0 [pH] Normal 5-9 [facility] Comment on above: Performed By: #### U AMIC #### [facility] [address] [place] [address] Dr. Hari Palmer RBC 0-2 Normal 0-2 [facility] Comment on above: Performed By: #### U AMIC #### [facility] [address] [place] [address] Dr. Hari Palmer SPEC GRAVITY 1.010 Normal 1.005-<=1.02 5 [facility] Comment on above: Performed By: #### U AMIC #### [facility] [address] [address] [address] Hari Palmer UA PROTEIN Negative Normal NEGATIVE/ TRACE [facility] Comment on above: Performed By: #### U AMIC #### [facility] [address] [address] [address] Hari Palmer Urobilinogen Qn (U) 0.2 {Janice'U}/dL Normal 0.2 - 1. 0 [facility] Comment on above: Performed By: #### U AMIC #### [facility] [address] [place] [address] Dr. Hari Palmer WBC 5-10 Abnormal NONE SEEN [facility] Comment on above: Performed By: #### U AMIC #### [facility] [address] [place] [address] Dr. Hari Palmer URIC ACID SERUMon 12-03-2021 Urate [Mass/Vol] 4.6 mg/dL Normal 2.5-6.2 [facility] Comment on above: Performed By: #### M G, URIC, RENAL #### [facility] [address] [place] [address] Dr. Hari Palmer URINE T PROTEIN CREAT RATIOo n 12-03-2021 Protein (U) [Mass/Vol] 31.7 mg/dL Critically high <=12.0 [facility] Comment on above: Performed By: #### M G, URIC, RENAL #### [facility] [address] [place] [address] Dr. Hari Palmer UR PROT CREAT RAT 0.54 Normal [facility] Comment on above: Performed By: #### M G, URIC, RENAL #### [facility] [address] [place] [address] Dr. Hari Palmer URINE CREAT 59.03 mg/dL Normal 20.00-300.00 [facility] Comment on above: Performed By: #### M G, URIC, RENAL #### [facility] [address] [place] [address] Dr. Hari Palmer VITAMIN D 25 OHon 12-03-2021 VIT D 25-OH 38.1 ng/mL Normal [facility] Comment on above: Performed By: #### M G, URIC, RENAL #### [facility] [address] [place] [address] Dr. Hari Palmer VIT D RANGES SEE BELOW Normal [facility] Comment on above: Result Comment: <20 ng/mL Vit D deficient 20 - <30 ng/mL Vit D insufficient 30 - 100 ng/mL Vit D sufficient >100 ng/mL Potential Toxicity Performed By: #### M G, URIC, RENAL #### [facility] [address] [place] [address] Dr. Hari Palmer PTH INTACTon 09-03-2021 PTH, Intact 177 pg/mL Critically high 15-65 [facility] Comment on above: Performed By: #### P THINT #### [facility] [address] [place] [address] Dr. Hari Palmer CBC AUTO DIFFon 09-01-2021 BASO # 0.1 103/ul Normal 0.0-0.1 [facility] Comment on above: Performed By: #### M G, URIC, RENAL #### [facility] [address] [place] [address] Dr. Hari Palmer Basophils/100 WBC (Bld) 0.6 % Normal 0.2-2.0 [facility] Comment on above: Performed By: #### M G, URIC, RENAL #### [facility] [address] [place] [address] Dr. Hari Palmer EO # 0.3 103/ul Normal 0.0-0.7 [facility] Comment on above: Performed By: #### M G, URIC, RENAL #### [facility] [address] [place] [address] Dr. Hari Palmer Eosinophils/100 WBC (Bld) 3.5 % Normal 0.9-7.0 [facility] Comment on above: Performed By: #### M G, URIC, RENAL #### [facility] [address] [place] [address] Dr. Hari Palmer Erythrocyte distribution width (RBC) [Ratio] 13.8 % Normal 11.0-15.0 [facility] Comment on above: Performed By: #### M G, URIC, RENAL #### [facility] [address] [place] [address] Dr. Hari Palmer Hematocrit (Bld) [Volume fraction] 32.8 % Critically low 36.0-48.0 [facility] Comment on above: Performed By: #### M G, URIC, RENAL #### [facility] [address] [place] [address] Dr. Hari Palmer Hemoglobin (Bld) [Mass/Vol] 10.6 g/dL Critically low 12.0-16.0 [facility] Comment on above: Performed By: #### M G, URIC, RENAL #### [facility] [address] [place] [address] Dr. Hari Palmer IG # 0.14 10e3/ul Critically high 0.00-0.03 [facility] Comment on above: Performed By: #### M G, URIC, RENAL #### [facility] [address] [place] [address] Dr. Hari Palmer IG % 1.5 % Critically high 0.0-0.5 [facility] Comment on above: Performed By: #### M G, URIC, RENAL #### [facility] [address] [place] [address] Dr. Hari Palmer LYMPH # 1.8 103/ul Normal 1.2-3.8 [facility] Comment on above: Performed By: #### M G, URIC, RENAL #### [facility] [address] [place] [address] Dr. Hari Palmer Lymphocytes/100 WBC (Bld) 19.3 % Critically low 20.5-60.0 [facility] Comment on above: Performed By: #### M G, URIC, RENAL #### [facility] [address] [place] [address] Dr. Hari Palmer MANUAL DIFF REQ NO Normal [facility] Comment on above: Performed By: #### M G, URIC, RENAL #### [facility] [address] [place] [address] Dr. Hari Palmer MCH (RBC) [Entitic mass] 31.4 pg Normal 26.7-34.0 [facility] Comment on above: Performed By: #### M G, URIC, RENAL #### [facility] [address] [place] [address] Dr. Hari Palmer MCHC (RBC) [Mass/Vol] 32.3 g/dL Normal 29.9-35.2 [facility] Comment on above: Performed By: #### M G, URIC, RENAL #### [facility] [address] [place] [address] Dr. Hari Palmer MCV (RBC) [Entitic vol] 97.0 fL Normal 81.0-99.0 [facility] Comment on above: Performed By: #### M G, URIC, RENAL #### [facility] [address] [place] [address] Dr. Hari Palmer MONO # 0.4 103/ul Normal 0.3-0.8 [facility] Comment on above: Performed By: #### M G, URIC, RENAL #### [facility] [address] [place] [address] Dr. Hari Palmer Monocytes/100 WBC (Bld) 4.2 % Normal 1.7-12.0 [facility] Comment on above: Performed By: #### M G, URIC, RENAL #### [facility] [address] [place] [address] Dr. Hari Palmer NEUT # 6.5 103/ul Normal 1.4-6.5 [facility] Comment on above: Performed By: #### M G, URIC, RENAL #### [facility] [address] [place] [address] Dr. Hari Palmer Neutrophils/100 WBC (Bld) 70.9 % Normal 43.0-75.0 [facility] Comment on above: Performed By: #### M G, URIC, RENAL #### [facility] [address] [place] [address] Dr. Hari Palmer Platelet mean volume (Bld) [Entitic vol] 9.0 fL Critically low 9.5-13.5 [facility] Comment on above: Performed By: #### M G, URIC, RENAL #### [facility] [address] [address] [address] Hari Palmer PLT 289 103/ul Normal 150-450 [facility] Comment on above: Performed By: #### M G, URIC, RENAL #### [facility] [address] [address] [address] Hari Palmer RBC 3.38 106/ul Critically low 4.20-5.40 [facility] Comment on above: Performed By: #### M G, URIC, RENAL #### [facility] [address] [address] [address] Hari Palmer WBC 9.1 103/ul Normal 4.0-11.0 [facility] Comment on above: Performed By: #### M G, URIC, RENAL #### [facility] [address] [place] [address] Dr. Hari Palmer FERRITINon 09-01-2021 Ferritin [Mass/Vol] 204.0 ng/mL Critically high 6.2-137.0 [facility] Comment on above: Performed By: #### M G, URIC, RENAL #### [facility] [address] [place] [address] Dr. Hari Palmer IRON AND TIBCon 09-01-2021 % SATURATION 28.4 % Normal [facility] Comment on above: Performed By: #### M G, URIC, RENAL #### [facility] [address] [place] [address] Dr. Hari Palmer Iron [Mass/Vol] 80.0 ug/dL Normal 37.0-170.0 [facility] Comment on above: Performed By: #### M G, URIC, RENAL #### [facility] [address] [place] [address] Dr. Hari Palmer TIBC DIRECT 282.0 ug/dL Normal 261.0-497.0 [facility] Comment on above: Performed By: #### M G, URIC, RENAL #### [facility] [address] [place] [address] Dr. Hari Palmer MAGNESIUMon 09-01-2021 Magnesium [Mass/Vol] 2.2 mg/dL Normal 1.6-2.3 [facility] Comment on above: Performed By: #### U AMIC #### [facility] [address] [place] [address] Dr. Hari Palmer RENAL FUNCTION PANELon 09-01 Albumin [Mass/Vol] 3.5 g/dL Normal 3.5-5.0 [facility] Comment on above: Performed By: #### M G, URIC, RENAL #### [facility] [address] [place] [address] Dr. Hari Palmer Calcium [Mass/Vol] 8.7 mg/dL Normal 8.4-10.2 [facility] Comment on above: Performed By: #### M G, URIC, RENAL #### [facility] [address] [place] [address] Dr. Hari Palmer Chloride [Moles/Vol] 105 mmol/L Normal 98-107 [facility] Comment on above: Performed By: #### M G, URIC, RENAL #### [facility] [address] [place] [address] Dr. Hari Palmer CO2 [Moles/Vol] 21.1 mmol/L Critically low 22.0-30.0 [facility] Comment on above: Performed By: #### M G, URIC, RENAL #### [facility] [address] [place] [address] Dr. Hari Palmer Creatinine [Mass/Vol] 3.63 mg/dL Critically high 0.52-1.04 [facility] Comment on above: Performed By: #### M G, URIC, RENAL #### [facility] [address] [place] [address] Dr. Hari Palmer EGFR-AF ESTONIAN 16 mL/min/1.73m2 Critically low >=60 [facility] Comment on above: Performed By: #### M G, URIC, RENAL #### [facility] [address] [place] [address] Dr. Hari Palmer EGFR-NON AF ESTONIAN 14 mL/min/1.73m2 Critically low >=60 [facility] Comment on above: Performed By: #### M G, URIC, RENAL #### [facility] [address] [address] [address] Hari Palmer Glucose [Mass/Vol] 115 mg/dL Critically high 74-106 [facility] [facility] [place] Comment on above: Performed By: #### M G, URIC, RENAL #### [facility] [address] [address] [address] Hari Palmer Phosphate [Mass/Vol] 4.6 mg/dL Critically high 2.5-4.5 [facility] Comment on above: Performed By: #### M G, URIC, RENAL #### [facility] [address] [address] [address] Hari Palmer Potassium [Moles/Vol] 4.2 mmol/L Normal 3.4-5.0 [facility] Comment on above: Performed By: #### M G, URIC, RENAL #### [facility] [address] [address] [address] Hari Palmer Sodium [Moles/Vol] 138 mmol/L Normal 137-145 [facility] Comment on above: Performed By: #### M G, URIC, RENAL #### [facility] [address] [address] [address] Hari Palmer Urea nitrogen [Mass/Vol] 50.0 mg/dL Critically high 7.0-17.0 [facility] Comment on above: Performed By: #### M G, URIC, RENAL #### [facility] [address] [address] [address] Hari Palmer UA RANDOM W/MICROSCOPICon BACTERIA SMALL Abnormal NONE SEEN [facility] Comment on above: Performed By: #### U AMIC #### [facility] [address] [address] [address] Hari Palmer Bilirubin Ql (U) Negative Normal NEGATIVE [facility] Comment on above: Performed By: #### U AMIC #### [facility] [address] [place] [address] Dr. Hari Palmer CAST NONE SEEN Normal NONE SEEN [facility] Comment on above: Performed By: #### U AMIC #### [facility] [address] [address] [address] Hari Palmer Clarity (U) CLEAR Normal CLEAR [facility] Comment on above: Performed By: #### U AMIC #### [facility] [address] [place] [address] Dr. Hari Palmer Color (U) LT. YELLOW Normal YELLOW [facility] Comment on above: Performed By: #### U AMIC #### [facility] [address] [place] [address] Dr. Hari Palmer Crystals LM Nom (Urine sed) NONE SEEN Normal NONE SEEN [facility] Comment on above: Performed By: #### U AMIC #### [facility] [address] [place] [address] Dr. Hari Palmer Epithelial cells LM Ql (Urine sed) MODERATE Abnormal NONE SEEN /RARE [facility] Comment on above: Performed By: #### U AMIC #### [facility] [address] [place] [address] Dr. Hari Palmer Glucose Ql (U) Negative Normal NEGATIVE [facility] Comment on above: Performed By: #### U AMIC #### [facility] [address] [place] [address] Dr. Hari Palmer Hemoglobin Ql (U) TRACE-INTACT Abnormal NEGATIVE [facility] Comment on above: Performed By: #### U AMIC #### [facility] [address] [place] [address] Dr. Hari Palmer Ketones Ql (U) Negative Normal NEGATIVE [facility] Comment on above: Performed By: #### U AMIC #### [facility] [address] [place] [address] Dr. Hari Palmer LEUKOCYTES Negative Normal NEGATIVE [facility] Comment on above: Performed By: #### U AMIC #### [facility] [address] [place] [address] Dr. Hari Palmer MUCOUS NONE SEEN Normal NONE SEEN [facility] Comment on above: Performed By: #### U AMIC #### [facility] [address] [place] [address] Dr. Hari Palmer Nitrite Ql (U) Negative Normal NEGATIVE [facility] Comment on above: Performed By: #### U AMIC #### [facility] [address] [address] [address] Hari Palmer pH (U) 6.0 [pH] Normal 5-9 [facility] Comment on above: Performed By: #### U AMIC #### [facility] [address] [address] [address] Hari Palmer RBC 2-5 Abnormal 0-2 [facility] Comment on above: Performed By: #### U AMIC #### [facility] [address] [place] [address] Dr. Hari Palmer SPEC GRAVITY 1.010 Normal 1.005-<=1.02 5 [facility] Comment on above: Performed By: #### U AMIC #### [facility] [address] [place] [address] Dr. Hari Palmer UA PROTEIN Negative Normal NEGATIVE/ TRACE [facility] Comment on above: Performed By: #### U AMIC #### [facility] [address] [place] [address] Dr. Hari Palmer Urobilinogen Qn (U) 0.2 {Janice'U}/dL Normal 0.2 - 1. 0 [facility] Comment on above: Performed By: #### U AMIC #### [facility] [address] [place] [address] Dr. Hari Palmer WBC 2-5 Abnormal NONE SEEN [facility] Comment on above: Performed By: #### U AMIC #### [facility] [address] [place] [address] Dr. Hari Palmer URIC ACID SERUMon 09-01-2021 Urate [Mass/Vol] 4.9 mg/dL Normal 2.5-6.2 [facility] Comment on above: Performed By: #### U AMIC #### [facility] [address] [place] [address] Dr. Hari Palmer URINE T PROTEIN CREAT RATIOo n 09-01-2021 Protein (U) [Mass/Vol] 22.2 mg/dL Critically high <=12.0 [facility] Comment on above: Performed By: #### M G, URIC, RENAL #### [facility] [address] [place] [address] Dr. Hari Palmer UR PROT CREAT RAT 0.47 Normal [facility] Comment on above: Performed By: #### M G, URIC, RENAL #### [facility] [address] [place] [address] Dr. Hari Palmer URINE CREAT 46.89 mg/dL Normal 20.00-300.00 [facility] Comment on above: Performed By: #### M G, URIC, RENAL #### [facility] [address] [place] [address] Dr. Hari Palmer VITAMIN D 25 OHon 09-01-2021 VIT D 25-OH 40.5 ng/mL Normal [facility] Comment on above: Performed By: #### M G, URIC, RENAL #### [facility] [address] [place] [address] Dr. Hari Palmer VIT D RANGES SEE BELOW Normal [facility] Comment on above: Result Comment: <20 ng/mL Vit D deficient 20 - <30 ng/mL Vit D insufficient 30 - 100 ng/mL Vit D sufficient >100 ng/mL Potential Toxicity Performed By: #### M G, URIC, RENAL #### [facility] [address] [place] [address] Dr. Hari Palmer CNOVon 03-30-2021 CNOV Office Visit (NEPHMN ) -------- MANDEEP PURI ([id number]) 1975 F Date Time Provider Department 03/30/21 9:20 AM PERRI BARRETT During your visit today, we recorded the following information about you: Temperature Pulse Blood pressure Weight 98.2 degrees 75/minute 122/77 93 kg Height 1.549 m Perri Barrett MD 03/30/2021 10:25 AM Signed Mrs. 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 Normal [facility] Urinalysison 03-30-2021 Bilirubin, Urine Negative Normal Negative [facility] Comment on above: Performed By: #### U A #### [facility] [address] [id number] Clarity (U) Clear Normal Clear [facility] Comment on above: Performed By: #### U A #### [facility] [address] [place], [place] [address] Color (U) Colorless Critically abnormal Yellow [facility] Comment on above: Performed By: #### U A #### [facility] [address] [place], [place] [address] Comments SEE COMMENT Normal [facility] Comment on above: Result Comment: Micr oscopic not warranted Performed By: #### U A #### [facility] [address] [place], [place] [address] Glucose Ql (U) Trace Critically abnormal Negative [facility] Comment on above: Performed By: #### U A #### [facility] [address] [place], [place] [address] Hemoglobin/Blood,Ur Negative Normal Negative [facility] Comment on above: Performed By: #### U A #### [facility] [address] [place], [place] [address] Ketones Ql (U) Negative Normal Negative [facility] Comment on above: Performed By: #### U A #### [address] [address] Leukest Negative Normal Negative [facility] Comment on above: Performed By: #### U A #### [address] [address] Nitrite Ql (U) Negative Normal Negative [facility] Comment on above: Performed By: #### U A #### [address] [address] pH (U) 6.5 [pH] Normal 5.0-8.0 [facility] Comment on above: Performed By: #### U A #### [address] [address] Protein, Urine Negative Normal Negative [facility] Comment on above: Performed By: #### U A #### [address] [id number] Specific [place], Ur 1.008 Normal 1.005-1.030 [facility] Comment on above: Performed By: #### U A #### [address] [id number] Urine Codi Comment SEE COMMENT Normal [facility] Comment on above: Result Comment: N/A Performed By: #### U A #### [address] [address] Urobilinogen (U) [Mass/Vol] Negative Normal Negative [facility] Comment on above: Performed By: #### U A #### [facility] [address] [place], [place] [address] Coding Summary.on 04-21-2020 Coding Summary. CODING DATE: 020 FINAL [facility] STATUS: Home (Routine DC) PAYOR: Medical Warren ADMIT DX: REASON FOR VISIT DX: Z20.828 [...] CphT Date Saved: 04/21/2020 05:17 pm Normal [facility] Physician Orderon 04-21-2020 Physician Order [id number]: 127 Normal [facility] Marci 04-12-2020 ALT [Catalytic activity/Vol] 14 U/L Normal 7 - 45 [facility] Comment on above: Result Comment: Kelsea ents treated with Sulfasalazine may generate falsely decreased results for ALT. Performed By: #### A LT #### [facility] [address] [place] [address] Ronald 04-12-2020 AST [Catalytic activity/Vol] 16 U/L Normal 9 - 39 [facility] Comment on above: Performed By: #### A ST #### [facility] [address] [place] [address] CREATININEon 04-12-2020 Creatinine [Mass/Vol] 2.83 mg/dL High 0.50 - 1.05 [facility] Comment on above: Performed By: #### C REAT #### [facility] [address] [place] [address] Creatinine [Mass/Vol] 18 mL/min/1.73m2 Abnormal >60 [facility] Comment on above: Performed By: #### C REAT #### [facility] [address] [place] [address] Creatinine [Mass/Vol] 22 mL/min/1.73m2 Abnormal >60 [facility] Comment on above: Result Comment: CALC ULATIONS OF ESTIMATED GFR ARE PERFORMED USING THE MDRD STUDY EQUATION FOR THE IDMS-TRACEABLE CREATININE METHODS. CLIN CHEM 2007;53:766-72 Performed By: #### C REAT #### [facility] [address] [place] [address] URIC ACIDon 04-12-2020 Urate [Mass/Vol] 5.2 mg/dL Normal 2.3 - 6.7 [facility] Comment on above: Result Comment: Beti puncture immediately after or during the administration of Metamizole may lead to falsely low results. Testing should be performed immediately prior to Metamizole dosing. Performed By: #### U DASHAWN #### [facility] [address] [place] [address] URIC ACIDon 02-11-2020 Urate [Mass/Vol] 8.2 mg/dL High 2.3 - 6.7 [facility] Comment on above: Result Comment: Beti puncture immediately after or during the administration of Metamizole may lead to falsely low results. Testing should be performed immediately prior to Metamizole dosing. Performed By: #### U DASHAWN #### [facility] [address] [place] [address] Cult,Urineon 08-04-2019 Cult,Urine Specimen Description .CLEAN CATCH URINE Special Requests NOT REPORTED Culture ESCHERICHIA COLI >[id number] CFU/ML Report Status FINAL 08/04/2019 SUSCEPTIBILITY Organism [...] Trimethoprim/Sulfa <=20 SUSCEPTIBLE Piperacillin/Tazobactam <=4 SUSCEPTIBLE Normal [facility] Comment on above: Performed By: #### D CITLALY, LIP, CMPX, TROPI, BNP, CDP, PT #### [facility] [address] [place], [place] [id number] Cattle Shipper: Sami Dominguez MD Brain Natri. Peptideon 08-02 Natriuretic peptide B (Bld) [Mass/Vol] 152 pg/mL Normal <300 [facility] Comment on above: Result Comment: Pro- BNP results cannot be compared to BNP results. Performed By: #### D CITLALY, LIP, CMPX, TROPI, BNP, CDP, PT #### [facility] [address] [place], [place] [id number] Cattle Shipper: Sami Dominguez MD Natriuretic peptide B (Bld) [Mass/Vol] Pro-BNP Reference Range: Normal [facility] Comment on above: Result Comment: Rule Out: <300 Parar Zone: Age <50 300-450 Age 50-75 300-900 Age >75 300-1800 Usually represents mild to moderate HF but other cardiopulmonary causes cannot be ruled out. Rule In: Age <50 >450 Age 50-75 >900 Age >75 >1800 Performed By: #### D CITLALY, LIP, CMPX, TROPI, BNP, CDP, PT #### [facility] [address] [place] [address] Dr. [place], [place] [id number] Cattle Shipper: Sami Dominguez MD Brain Natriuretic Peptideon 08-02-2019 Natriuretic peptide B (Bld) [Mass/Vol] 152 pg/mL <300 [facility] [place] Comment on above: Pro-BNP results eric ot be compared to BNP results. Natriuretic peptide B (Bld) [Mass/Vol] Pro-BNP Reference Range: [place], [place] Comment on above: Rule Out: <300 Parra Zone: Age <50 300-450 Age 50-75 300-900 Age >75 300-1800 Usually represents mild to moderate HF but other cardiopulmonary causes cannot be ruled out. Rule In: Age <50 >450 Age 50-75 >900 Age >75 >1800 CBC Auto Differentialon 10 Basophils (Bld) [#/Vol] 0.00 10*3/uL [place] Basophils/100 WBC (Bld) 0 % 0 - 2 % [place] Differential Type NOT REPORTED [place] Eosinophils (Bld) [#/Vol] 0.08 10*3/uL [place] Eosinophils/100 WBC (Bld) 1 % 1 - 4 % [place] Erythrocyte distribution width (RBC) [Ratio] 13.2 % 11.8 - 14.4 % [place] Hematocrit (Bld) [Volume fraction] 33.7 % Low 36.3 - 47.1 % [place] Hemoglobin (Bld) [Mass/Vol] 10.7 g/dL Low 11.9 - 15.1 g/dL [place] Immature granulocytes (Bld) [#/Vol] 0 % 0 [place] Immature granulocytes (Bld) [#/Vol] 0.00 10*3/uL [place] Interpretation and review of laboratory results Abnormal [place] Lymphocytes (Bld) [#/Vol] 0.90 10*3/uL Low [place] Lymphocytes/100 WBC (Bld) 12 % Low 24 - 43 % [place] MCH (RBC) [Entitic mass] 30.2 pg 25.2 - 33.5 pg [place] MCHC (RBC) [Mass/Vol] 31.8 g/dL 28.4 - 34.8 g/dL [place] MCV (RBC) [Entitic vol] 95.2 fL 82.6 - 102.9 fL [place] Monocytes (Bld) [#/Vol] 0.00 10*3/uL Low [place] Monocytes/100 WBC (Bld) 0 % Low 3 - 12 % [place] Morphology Geovany (Bld) [Interp] Normal [place] Platelet mean volume (Bld) [Entitic vol] 8.6 fL 8.1 - 13.5 fL [place] Platelets (Bld) [#/Vol] NOT REPORTED [place] Platelets (Bld) [#/Vol] 335 10*3/uL [place] RBC (Bld) [#/Vol] 3.54 10*6/uL Low 3.95 - 5.1 1 m/uL [place] RBC morphology finding Nom (Bld) NOT REPORTED [place] Segmented neutrophils/100 WBC (Bld) 87 % High 36 - 65 % [place] Segs Absolute 6.52 [place] WBC (Bld) [#/Vol] 7.5 10*3/uL [place] WBC (Bld) [#/Vol] 0.0 10*3/uL 0.0 per 10 0 WBC [place] WBC Morphology NOT REPORTED [place] CBC with Diffon 08-02-2019 Abs. Basophil 0.00 k/uL Normal 0.0-0.2 [facility] Comment on above: Performed By: #### D CITLALY, LIP, CMPX, TROPI, BNP, CDP, PT #### [address] [place] [address] Cattle Shipper: Sami Dominguez MD Abs.Imm.Granulocyte 0.00 k/uL Normal 0.00-0.30 [facility] Comment on above: Performed By: #### D CITLALY, LIP, CMPX, TROPI, BNP, CDP, PT #### [address] [place] [address] Cattle Shipper: Sami Dominguez MD Abs.Neutrophil (Seg) 6.52 k/uL Normal 1.50-8.10 [facility] Comment on above: Performed By: #### D CITLALY, LIP, CMPX, TROPI, BNP, CDP, PT #### [address] [place] [address] Cattle Shipper: Sami Dominguez MD Basophils/100 WBC (Bld) 0 % Normal 0-2 [facility] Comment on above: Performed By: #### D CITLALY, LIP, CMPX, TROPI, BNP, CDP, PT #### [facility] [address], [facility] Cattle Shipper: Sami Dominguez MD Eosinophils (Bld) [#/Vol] 0.08 10*3/uL Normal 0.00-0.44 [facility] Comment on above: Performed By: #### D CITLALY, LIP, CMPX, TROPI, BNP, CDP, PT #### [facility] [address], [facility] Cattle Shipper: Sami Dominguez MD Eosinophils/100 WBC (Bld) 1 % Normal 1-4 [facility] Comment on above: Performed By: #### D CITLALY, LIP, CMPX, TROPI, BNP, CDP, PT #### [address], [place] [address] Cattle Shipper: Sami Dominguez MD Immature granulocytes (Bld) [#/Vol] 0 % Normal 0 [facility] Comment on above: Performed By: #### D CITLALY, LIP, CMPX, TROPI, BNP, CDP, PT #### [address], [place] [address] Cattle Shipper: Sami Dominguez MD Lymphocytes (Bld) [#/Vol] 0.90 10*3/uL Low 1.10-3.70 [facility] Comment on above: Performed By: #### D CITLALY, LIP, CMPX, TROPI, BNP, CDP, PT #### [address], [place] [address] Cattle Shipper: Sami Dominguez MD Lymphocytes/100 WBC (Bld) 12 % Low 24-43 [facility] Comment on above: Performed By: #### D CITLALY, LIP, CMPX, TROPI, BNP, CDP, PT #### [address], [facility] Cattle Shipper: Sami Dominguez MD Monocytes (Bld) [#/Vol] 0.00 10*3/uL Low 0.10-1.20 [facility] Comment on above: Performed By: #### D CITLALY, LIP, CMPX, TROPI, BNP, CDP, PT #### [facility] [address], [facility] Cattle Shipper: Sami Dominguez MD Monocytes/100 WBC (Bld) 0 % Low 3-12 [facility] Comment on above: Performed By: #### D CITLALY, LIP, CMPX, TROPI, BNP, CDP, PT #### [facility] [address], [facility] Cattle Shipper: Sami Dominguez MD Morphology Geovany (Bld) [Interp] Normal Normal [facility] Comment on above: Performed By: #### D CITLALY, LIP, CMPX, TROPI, BNP, CDP, PT #### [address], [facility] Cattle Shipper: Sami Dominguez MD Neutrophil (Seg) 87 % High 36-65 [facility] Comment on above: Performed By: #### D CITLALY, LIP, CMPX, TROPI, BNP, CDP, PT #### [address], [facility] Cattle Shipper: Sami Dominguez MD Erythrocyte distribution width (RBC) [Ratio] 13.2 % Normal 11.8-14.4 [facility] Comment on above: Performed By: #### D CITLALY, LIP, CMPX, TROPI, BNP, CDP, PT #### [facility] [address], [place] [id number] Cattle Shipper: Sami Dominguez MD Hematocrit (Bld) [Volume fraction] 33.7 % Low 36.3-47.1 [facility] Comment on above: Performed By: #### D CITLALY, LIP, CMPX, TROPI, BNP, CDP, PT #### [facility] [address] [place] [address] Cattle Shipper: Sami Dominguez MD Hemoglobin (Bld) [Mass/Vol] 10.7 g/dL Low 11.9-15.1 [facility] Comment on above: Performed By: #### D CITLALY, LIP, CMPX, TROPI, BNP, CDP, PT #### [facility] [address], [facility] Cattle Shipper: Sami Dominguez MD MCH (RBC) [Entitic mass] 30.2 pg Normal 25.2-33.5 [facility] Comment on above: Performed By: #### D CITLALY, LIP, CMPX, TROPI, BNP, CDP, PT #### [address] [facility] Cattle Shipper: Sami Dominguez MD MCHC (RBC) [Mass/Vol] 31.8 g/dL Normal 28.4-34.8 [facility] Comment on above: Performed By: #### D CITLALY, LIP, CMPX, TROPI, BNP, CDP, PT #### [address] [place] [address] Cattle Shipper: Sami Dominguez MD MCV (RBC) [Entitic vol] 95.2 fL Normal 82.6-102.9 [facility] Comment on above: Performed By: #### D CITLALY, LIP, CMPX, TROPI, BNP, CDP, PT #### [facility] [address] [place] [address] Cattle Shipper: Sami Dominguez MD NRBC Automated 0.0 per 100 WBC Normal 0.0 [facility] Comment on above: Performed By: #### D CITLALY, LIP, CMPX, TROPI, BNP, CDP, PT #### [address] [place] [address] Cattle Shipper: Sami Dominguez MD Platelet mean volume (Bld) [Entitic vol] 8.6 fL Normal 8.1-13.5 [facility] Comment on above: Performed By: #### D CITLALY, LIP, CMPX, TROPI, BNP, CDP, PT #### [facility] [address], [facility] Cattle Shipper: Sami Dominguez MD Platelets (Bld) [#/Vol] 335 10*3/uL Normal 138-453 [facility] Comment on above: Performed By: #### D CITLALY, LIP, CMPX, TROPI, BNP, CDP, PT #### [facility] [address], [facility] Cattle Shipper: Sami Dominguez MD RBC (Bld) [#/Vol] 3.54 10*6/uL Low 3.95-5.11 [facility] Comment on above: Performed By: #### D CITLALY, LIP, CMPX, TROPI, BNP, CDP, PT #### [facility] [address], [place] [address] Cattle Shipper: Sami Dominguez MD WBC (Bld) [#/Vol] 7.5 10*3/uL Normal 3.5-11.3 [facility] Comment on above: Performed By: #### D CITLALY, LIP, CMPX, TROPI, BNP, CDP, PT #### [facility] [address], [place] [address] Cattle Shipper: Sami Dominguez MD Auto Diff Performed NOT REPORTED Normal [facility] Comment on above: Performed By: #### D CITLALY, LIP, CMPX, TROPI, BNP, CDP, PT #### [facility] [address], [facility] Cattle Shipper: Sami Dominguez MD Platelets (Bld) [#/Vol] NOT REPORTED Normal [facility] Comment on above: Performed By: #### D CITLALY, LIP, CMPX, TROPI, BNP, CDP, PT #### [facility] [address] [place] [address] Cattle Shipper: Sami Dominguez MD RBC morphology finding Nom (Bld) NOT REPORTED Normal [facility] Comment on above: Performed By: #### D CITLALY, LIP, CMPX, TROPI, BNP, CDP, PT #### [facility] [address] [place] [address] Cattle Shipper: Sami Dominguez MD WBC Morphology NOT REPORTED Normal [facility] Comment on above: Performed By: #### D CITLALY, LIP, CMPX, TROPI, BNP, CDP, PT #### [facility] [address] [place] [address] Cattle Shipper: Sami Dominguez MD CTA CHEST ABDOMEN PELVIS [...] Yunier Yang MD 08/02/19 Final result Normal [facility] [place], pn Incoming Radiant Results From [facility] - 08/02/2019 1:21 PM EDT EXAMINATION: CTA [...] recommended. Reference: J Am Danika Radiol 2013;10:675-681 [place] EXAMINATION: CTA OF THE CHEST, [...] and caliber without aneurysmal dilatation or dissection. [place], [place] No evidence for aneurysmal dilatation or dissection of the aorta or its branches. Findings most compatible with polycystic kidney disease. Subtle inflammation adjacent to the descending colon is suggestive of subtle colitis. No perforation or abscess formation. No free intraperitoneal air or fluid. 4.1 cm benign appearing ovarian cyst No follow-up imaging is recommended. Reference: J Am Danika Radiol 2013;10:675-681 [place], [place] Comp Metabolic Pr/rfx MGon 1 (cont.) Normal [facility] Comment on above: Result Comment: Aver age GFR for 40-49 years old: 99 mL/min/1.73sq m Chronic Kidney Disease: <60 mL/min/1.73sq m Kidney failure: <15 mL/min/1.73sq m eGFR calculated using average adult body mass. Additional eGFR calculator available at: http://www.Consulted.teextee/multiple_crcl_2012.htm Performed By: #### D CITLALY, LIP, CMPX, TROPI, BNP, CDP, PT #### [facility] [address] [place] [address] Cattle Shipper: Sami Dominguez MD Albumin [Mass/Vol] 4.4 g/dL Normal 3.5-5.2 [facility] Comment on above: Performed By: #### D CITLALY, LIP, CMPX, TROPI, BNP, CDP, PT #### [facility] [address] [place] [address] Cattle Shipper: Sami Dominguez MD Albumin/Globulin [Mass ratio] 1.0 {ratio} Normal 1.0-2.5 [facility] Comment on above: Performed By: #### D CITLALY, LIP, CMPX, TROPI, BNP, CDP, PT #### [facility] [address] [place] [address] Cattle Shipper: Sami Dominguez MD Alkaline Phos 98 U/L Normal 35-104 [facility] Comment on above: Performed By: #### D CITLALY, LIP, CMPX, TROPI, BNP, CDP, PT #### [facility] [address] [place], [place] [id number] Cattle Shipper: Sami Dominguez MD ALT [Catalytic activity/Vol] 16 U/L Normal 5-33 [facility] Comment on above: Performed By: #### D CITLALY, LIP, CMPX, TROPI, BNP, CDP, PT #### [address] [place] [address] Cattle Shipper: Sami Dominguez MD Anion gap [Moles/Vol] 18 mmol/L High 9-17 [facility] Comment on above: Performed By: #### D CITLALY, LIP, CMPX, TROPI, BNP, CDP, PT #### [address] [place] [address] Cattle Shipper: Sami Dominguez MD AST [Catalytic activity/Vol] 18 U/L Normal <32 [facility] Comment on above: Performed By: #### D CITLALY, LIP, CMPX, TROPI, BNP, CDP, PT #### [facility] [address] [place], [facility] Cattle Shipper: Sami Dominguez MD Bilirubin Ql (U) 0.31 mg/dL Normal 0.3-1.2 [facility] Comment on above: Performed By: #### D CITLALY, LIP, CMPX, TROPI, BNP, CDP, PT #### [facility] [address] [place] [address] Cattle Shipper: Sami Dominguez MD BUN/CRE Ratio 13 Normal 9-20 [facility] Comment on above: Performed By: #### D CITLALY, LIP, CMPX, TROPI, BNP, CDP, PT #### [facility] [address] [place] [address] Cattle Shipper: Sami Dominguez MD Calcium [Mass/Vol] 9.7 mg/dL Normal 8.6-10.4 [facility] Comment on above: Performed By: #### D CITLALY, LIP, CMPX, TROPI, BNP, CDP, PT #### [facility] [address] [place] [address] Cattle Shipper: Sami Dominguez MD Chloride [Moles/Vol] 95 mmol/L Low 98-107 [facility] Comment on above: Performed By: #### D CITLALY, LIP, CMPX, TROPI, BNP, CDP, PT #### [facility] [address] [place] [address] Cattle Shipper: Sami Dominguez MD CO2 [Moles/Vol] 18 mmol/L Low 20-31 [facility] Comment on above: Performed By: #### D CITLALY, LIP, CMPX, TROPI, BNP, CDP, PT #### [facility] [address] [place] [address] Cattle Shipper: Sami Dominguez MD Creatinine [Mass/Vol] 3.07 mg/dL High 0.50-0.90 [facility] Comment on above: Performed By: #### D CITLALY, LIP, CMPX, TROPI, BNP, CDP, PT #### [facility] [address] [place] [address] Cattle Shipper: Sami Dominguez MD GFR, Amer 20 mL/min Low >60 [facility] Comment on above: Performed By: #### D CITLALY, LIP, CMPX, TROPI, BNP, CDP, PT #### [facility] [address] [place] [address] Cattle Shipper: Sami Dominguez MD GFR,non Amer 17 mL/min Low >60 [facility] Comment on above: Performed By: #### D CITLALY, LIP, CMPX, TROPI, BNP, CDP, PT #### [facility] [address] [place] [id number] Cattle Shipper: Sami Dominguez MD Glucose [Mass/Vol] 89 mg/dL Normal 70-99 [facility] Comment on above: Performed By: #### D CITLALY, LIP, CMPX, TROPI, BNP, CDP, PT #### [facility] [address] [place], [place] [id number] Cattle Shipper: Sami Dominguez MD Potassium [Moles/Vol] 3.9 mmol/L Normal 3.7-5.3 [facility] Comment on above: Performed By: #### D CITLALY, LIP, CMPX, TROPI, BNP, CDP, PT #### [facility] [address] [place], [place] [id number] Cattle Shipper: Sami Dominguez MD Protein [Mass/Vol] 8.8 g/dL High 6.4-8.3 [facility] Comment on above: Performed By: #### D CITLALY, LIP, CMPX, TROPI, BNP, CDP, PT #### [facility] [address] [place], [place] [id number] Cattle Shipper: Sami Dominguez MD Sodium [Moles/Vol] 131 mmol/L Low 135-144 [facility] Comment on above: Performed By: #### D CITLALY, LIP, CMPX, TROPI, BNP, CDP, PT #### [facility] [address] [place] [address] Cattle Shipper: Sami Dominguez MD Staging: Normal [facility] Comment on above: Result Comment: [...] CMPX, TROPI, BNP, CDP, PT #### [facility] [address] [place] [address] Cattle Shipper: Sami Dominguez MD Urea nitrogen [Mass/Vol] 39 mg/dL High 6-20 [facility] Comment on above: Performed By: #### D CITLALY, LIP, CMPX, TROPI, BNP, CDP, PT #### [facility] [address] [place] [address] Cattle Shipper: Sami Dominguez MD Comprehensive Metabolic Pane l w/ Reflex to on 08-02-2019 Albumin [Mass/Vol] 4.4 g/dL 3.5 - 5.2 g/dL [place] Albumin/Globulin [Mass ratio] 1.0 {ratio} [place] ALP [Catalytic activity/Vol] 98 U/L 35 - 104 U/L [place] ALT [Catalytic activity/Vol] 16 U/L 5 - 33 U/L [place] Anion gap [Moles/Vol] 18 mmol/L High 9 - 17 mmol/L [place] AST [Catalytic activity/Vol] 18 U/L <32 [place] Bilirubin Ql (U) 0.31 mg/dL 0.3 - 1.2 mg/dL [place] Bun/Cre Ratio 13 [place] Calcium [Mass/Vol] 9.7 mg/dL 8.6 - 10. 4 mg/dL [place] Chloride [Moles/Vol] 95 mmol/L Low 98 - 10 7 mmol/L [place] CO2 [Moles/Vol] 18 mmol/L Low 20 - 31 mmol/L [place] Creatinine [Mass/Vol] 3.07 mg/dL High 0.5 - 0.9 mg/dL [place] GFR 20 mL/min Low >60 [place] GFR Non- 17 mL/min Low >60 [place] Glucose [Mass/Vol] 89 mg/dL 70 - 99 mg/dL [place] Interpretation and review of laboratory results Abnormal [place] Potassium [Moles/Vol] 3.9 mmol/L 3.7 - 5.3 mmol/L [place] Protein [Mass/Vol] 8.8 g/dL High 6.4 - 8.3 g/dL [place] Sodium [Moles/Vol] 131 mmol/L Low 135 - 144 mmol/L [place] Urea nitrogen [Mass/Vol] 39 mg/dL High 6 - 20 mg/dL [place] D-Dimer Teston 08-02-2019 D-Dimer Test 1.15 mg/L FEU High 0.19-0.50 [facility] Comment on above: Result Comment: [...] CMPX, TROPI, BNP, CDP, PT #### [facility] [address] [place] [address] Cattle Shipper: Sami Dominguez MD D-Dimer, Quantitativeon 07-07 D-Dimer, Quant 1.15 [place] Comment on above: Elevated levels [...] Interpretation and review of laboratory results Abnormal [place] Lactate, Sepsison 08-02-2019 Lactic Acid, Sepsis 3.6 mmol/L High 0.5-1.9 [facility] Comment on above: Performed By: #### L ACDS #### [facility] [address] [place] [id number] Cattle Shipper: Sami Dominguez MD Lactic Acid,Sep Wbld NOT REPORTED Normal 0.5-1.9 [facility] Comment on above: Performed By: #### L ACDS #### [facility] [address] [place] [id number] Cattle Shipper: Sami Dominguez MD Interpretation and review of laboratory results Abnormal [place] Lactic Acid, Sepsis 3.6 mmol/L High 0.5 - 1. 9 mmol/L [place] Lactic Acid, Sepsis, Whole Blood NOT REPORTED 0.5 - 1.9 mmol/L [place] Lactic Acidon 08-02-2019 Lactate [Moles/Vol] 1.0 mmol/L Normal 0.5-2.2 [facility] Comment on above: Performed By: #### D CITLALY, LIP, CMPX, TROPI, BNP, CDP, PT #### [address] [place] [id number] Cattle Shipper: Sami Dominguez MD Lactate [Moles/Vol] NOT REPORTED Normal 0.7-2.1 [facility] Comment on above: Performed By: #### D CITLALY, LIP, CMPX, TROPI, BNP, CDP, PT #### [facility] [address] [place] [id number] Cattle Shipper: Sami Dominguez MD Lactic Acid, Plasmaon 2018 Lactate [Moles/Vol] 1 mmol/L 0.5 - 2. 2 mmol/L [place] Lactic Acid, Whole Blood NOT REPORTED 0.7 - 2.1 mmol/L [place] Lipaseon 08-02-2019 Lipase [Catalytic activity/Vol] 38 U/L Normal 13-60 [facility] Comment on above: Performed By: #### D CITLALY, LIP, CMPX, TROPI, BNP, CDP, PT #### [facility] [address] [place] [address] Cattle Shipper: Sami Dominguez MD Lipase [Catalytic activity/Vol] 38 U/L 13 - 60 U/L [place] Metabolic Panelon 08-02-2019 GFR/1.73 sq M predicted among non-blacks MDRD (S/P/Bld) [Vol rate/Area] [place] Comment on above: Stage 1: [...] body mass. Additional eGFR calculator available at: http://www.[employer]/multiple_crcl_2012.htm Microscopic Urinalysison Amorphous, UA NOT REPORTED None [place] Bacteria, UA 1+ Abnormal None [place] Casts UA NOT REPORTED /LPF [place] Crystals UA NOT REPORTED None /HPF [place] Epithelial Cells UA 2 TO 5 [place] Interpretation and review of laboratory results Abnormal [place] Mucus, UA NOT REPORTED None [place] Other Observations UA NOT REPORTED NOT REQ. [place] RBC (U) [#/Vol] None [place] Renal Epithelial, Urine NOT REPORTED 0 /HPF [place] Trichomonas, UA NOT REPORTED None [place] WBC, UA 50 TO 100 [place] Yeast, UA NOT REPORTED None [place] - [place] PTon 08-02-2019 INR Coag (PPP) [Relative time] 1.0 {INR} Normal 0.9-1.2 [facility] Comment on above: Performed By: #### D CITLALY, LIP, CMPX, TROPI, BNP, CDP, PT #### [facility] [address] [place] [address] Cattle Shipper: Sami Dominguez MD PT Coag (PPP) [Time] 10.0 s Normal 9.7-12.2 [facility] Comment on above: Performed By: #### D CITLALY, LIP, CMPX, TROPI, BNP, CDP, PT #### [facility] [address] [place] [address] Cattle Shipper: Sami Dominguez MD Protime-INRon 08-02-2019 INR Coag (PPP) [Relative time] 1.0 {INR} [place], [place] PT Coag (PPP) [Time] 10 s [place] Troponinon 08-02-2019 Troponin I.cardiac [Mass/Vol] ng/mL Normal <0.03 [facility] Comment on above: Result Comment: Trop onin T results cannot be compared to Troponin-I results. Performed By: #### D CITLALY, LIP, CMPX, TROPI, BNP, CDP, PT #### [facility] [address] [place] [address] Cattle Shipper: Sami Dominguez MD Troponin I.cardiac [Mass/Vol] Normal [facility] Comment on above: Result Comment: [...] CMPX, TROPI, BNP, CDP, PT #### [facility] [address] [place] [address] Cattle Shipper: Sami Dominguez MD Troponin I.cardiac [Mass/Vol] NOT REPORTED Normal 0-14 [facility] Comment on above: Performed By: #### D CITLALY, LIP, CMPX, TROPI, BNP, CDP, PT #### [facility] [address] [place] [address] Cattle Shipper: Sami Dominguez MD Troponin I.cardiac [Mass/Vol] [place] Comment on above: Reference Range: [...] diagnosis. Troponin T.cardiac [Mass/Vol] ug/L <0.03 ng/mL [place] Comment on above: Troponin T results c annot be compared to Troponin-I results. Troponin, High Sensitivity NOT REPORTED 0 - 14 ng/L [place] Troponin I.cardiac [Mass/Vol] ng/mL Normal <0.03 [facility] Comment on above: Result Comment: Trop onin T results cannot be compared to Troponin-I results. Performed By: #### D CITLALY, LIP, CMPX, TROPI, BNP, CDP, PT #### [address] [place] [address] Cattle Shipper: Sami Dominguez MD Troponin I.cardiac [Mass/Vol] Normal [facility] Comment on above: Result Comment: [...] CMPX, TROPI, BNP, CDP, PT #### [address] [place] [address] Cattle Shipper: Sami Dominguez MD Troponin I.cardiac [Mass/Vol] NOT REPORTED Normal 0-14 [facility] Comment on above: Performed By: #### D CITLALY, LIP, CMPX, TROPI, BNP, CDP, PT #### [facility] [address] [place] [address] Cattle Shipper: Sami Dominguez MD Troponin I.cardiac [Mass/Vol] [place] Comment on above: Reference Range: [...] diagnosis. Troponin T.cardiac [Mass/Vol] ug/L <0.03 ng/mL [place] Comment on above: Troponin T results c annot be compared to Troponin-I results. Troponin, High Sensitivity NOT REPORTED 0 - 14 ng/L [place] UA w/Reflex Cultureon 2018 Acetoacetic Acid,Ur Negative Normal NEG [facility] Comment on above: Performed By: #### D CITLALY, LIP, CMPX, TROPI, BNP, CDP, PT #### [facility] [address] [place] [address] [place] [address] Cattle Shipper: Sami Dominguez MD Bilirubin, SemiQt,Ur Negative Normal NEG [facility] Comment on above: Performed By: #### D CITLALY, LIP, CMPX, TROPI, BNP, CDP, PT #### [facility] [address] [place] [address] Cattle Shipper: Sami Dominguez MD Color (U) YELLOW Normal YEL [facility] Comment on above: Performed By: #### D CITLALY, LIP, CMPX, TROPI, BNP, CDP, PT #### [facility] [address] [place] [address] Cattle Shipper: Sami Dominguez MD Glucose Ql (U) Negative Normal [facility] Comment on above: Performed By: #### D CITLALY, LIP, CMPX, TROPI, BNP, CDP, PT #### [facility] [address] [place], [place] [id number] Cattle Shipper: Sami Dominguez MD Hemoglobin, Ur 1+ Abnormal NEG [facility] Comment on above: Performed By: #### D CITLALY, LIP, CMPX, TROPI, BNP, CDP, PT #### [facility] [address] [place] [address] Cattle Shipper: Sami Dominguez MD Leukocyte esterase Test strip Ql (U) MODERATE Abnormal NEG [facility] Comment on above: Performed By: #### D CITLALY, LIP, CMPX, TROPI, BNP, CDP, PT #### [address] [place], [facility] Cattle Shipper: Sami Dominguez MD Nitrite,Ur Negative Normal [facility] Comment on above: Performed By: #### D CITLALY, LIP, CMPX, TROPI, BNP, CDP, PT #### [address] [place] [address] Cattle Shipper: Sami Dominguez MD pH (U) 6.0 [pH] Normal 5.0-9.0 [facility] Comment on above: Performed By: #### D CITLALY, LIP, CMPX, TROPI, BNP, CDP, PT #### [facility] [address] [place] [address] [place] [address] Cattle Shipper: Sami Dominguez MD Protein Ql (U) TRACE Abnormal NEG [facility] Comment on above: Performed By: #### D CITLALY, LIP, CMPX, TROPI, BNP, CDP, PT #### [facility] [address] [place] [address] Cattle Shipper: Sami Dominguez MD Specific gravity (U) [Rel density] 1.010 Normal 1.010-1.020 [facility] Comment on above: Performed By: #### D CITLALY, LIP, CMPX, TROPI, BNP, CDP, PT #### [facility] [address] [place] [address] Cattle Shipper: Sami Dominguez MD Turbidity CLEAR Normal CLEAR [facility] Comment on above: Performed By: #### D CITLALY, LIP, CMPX, TROPI, BNP, CDP, PT #### [facility] [address] [place] [address] Cattle Shipper: Sami Dominguez MD Urobilinogen,Ur Normal Normal NORM [facility] Comment on above: Performed By: #### D CITLALY, LIP, CMPX, TROPI, BNP, CDP, PT #### [facility] [address] [place] [address] Cattle Shipper: Sami Dominguez MD Comment NOT REPORTED Normal [facility] Comment on above: Performed By: #### D CITLALY, LIP, CMPX, TROPI, BNP, CDP, PT #### [address] [place] [address] Cattle Shipper: Sami Dominguez MD Urinalysis Reflex to Culture on 08-02-2019 Bilirubin Urine Negative NEGATIVE [place] Color, UA YELLOW YELLOW [place] Glucose, Ur Negative NEGATIVE [place] Interpretation and review of laboratory results Abnormal [place] Ketones Ql (U) Negative NEGATIVE [place] Leukocyte esterase Test strip Ql (U) MODERATE Abnormal NEGATIVE [place] Nitrite, Urine Negative NEGATIVE [place] pH, UA 6.0 [place] Protein (U) [Mass/Vol] TRACE Abnormal NEGATIVE [facility], [place] Specific [place], UA 1.010 [facility], [place] Turbidity UA CLEAR CLEAR [place] Urinalysis Comments NOT REPORTED [place] Urine Hgb 1+ Abnormal NEGATIVE [place] Urobilinogen, Urine Normal Normal [place] Urinalysis,Microon 9 ----- Normal [facility] Comment on above: Performed By: #### D CITLALY, LIP, CMPX, TROPI, BNP, CDP, PT #### [facility] [address] [place] [address] Cattle Shipper: Sami Dominguez MD Bacteria LM.HPF (Urine sed) [#/Area] 1+ Abnormal [facility] Comment on above: Performed By: #### D CITLALY, LIP, CMPX, TROPI, BNP, CDP, PT #### [facility] [address] [place] [address] Cattle Shipper: Sami Dominguez MD Epithelial cells LM.HPF (Urine sed) [#/Area] 2 TO 5 Normal 0-25 [facility] Comment on above: Performed By: #### D CITLALY, LIP, CMPX, TROPI, BNP, CDP, PT #### [address] [place] [address] Cattle Shipper: Sami Dominguez MD RBC (U) [#/Vol] None Normal 0-2 [facility] Comment on above: Performed By: #### D CITLALY, LIP, CMPX, TROPI, BNP, CDP, PT #### [facility] [address] [place] [address] Cattle Shipper: Sami Dominguez MD WBC (U) [#/Vol] 50 TO 100 Normal 0-5 [facility] Comment on above: Performed By: #### D CITLALY, LIP, CMPX, TROPI, BNP, CDP, PT #### [facility] [address] [place] [address] Cattle Shipper: Sami Dominguez MD Amorphous sediment LM Ql (Urine sed) NOT REPORTED Normal [facility] Comment on above: Performed By: #### D CITLALY, LIP, CMPX, TROPI, BNP, CDP, PT #### [facility] [address] [place], [place] [address] Cattle Shipper: Sami Dominguez MD Casts LM.LPF (Urine sed) [#/Area] NOT REPORTED Normal [facility] Comment on above: Performed By: #### D CITLALY, LIP, CMPX, TROPI, BNP, CDP, PT #### [facility] [address] [place], [place] [address] Cattle Shipper: Sami Dominguez MD Crystals LM Nom (Urine sed) NOT REPORTED Normal [facility] Comment on above: Performed By: #### D CITLALY, LIP, CMPX, TROPI, BNP, CDP, PT #### [address] [place] [address] Cattle Shipper: Sami Dominguez MD Epithelial, Renal NOT REPORTED Normal 0 [facility] Comment on above: Performed By: #### D CITLALY, LIP, CMPX, TROPI, BNP, CDP, PT #### [address] [place], [place] [address] Cattle Shipper: Sami Dominguez MD Mucus Strands NOT REPORTED Normal [facility] Comment on above: Performed By: #### D CITLALY, LIP, CMPX, TROPI, BNP, CDP, PT #### [address] [place], [place] [address] Cattle Shipper: Sami Dominguez MD Other Observations NOT REPORTED Normal NREQ [facility] Comment on above: Performed By: #### D CITLALY, LIP, CMPX, TROPI, BNP, CDP, PT #### [facility] [address] [place], [facility] Cattle Shipper: Sami Dominguez MD Trichomonas NOT REPORTED Normal [facility] Comment on above: Performed By: #### D CITLALY, LIP, CMPX, TROPI, BNP, CDP, PT #### [facility] [address] [place] [address] Cattle Shipper: Sami Dominguez MD Yeast LM Ql (Urine sed) NOT REPORTED Normal NONE [facility] Comment on above: Performed By: #### D CITLALY, LIP, CMPX, TROPI, BNP, CDP, PT #### [facility] [address] [place] [address] Cattle Shipper: Sami Dominguez MD XR CHEST PORTABLEon 08-02-20 [...] Cullen Ngo MD 08/02/19 Final result Normal [facility] EXAMINATION: ONE XRA Y VIEW OF THE CHEST 08/02/2019 12:59 pm COMPARISON: None. HISTORY: ORDERING SYSTEM PROVIDED HISTORY: CP TECHNOLOGIST PROVIDED HISTORY: CP FINDINGS: Heart size and pulmonary vessels are within normal limits. Lungs are clear. No focal infiltrates or significant pleural effusions are seen. There is no acute osseous abnormality. Monitor leads overlie the chest. [place] No acute cardiopulmo nary process. [place] Moshe, [facility] Incoming Radiant Results From [employer] - 08/02/2019 1:10 PM EDT EXAMINATION: ONE [...] the chest. IMPRESSION: No acute cardiopulmonary process. [place] Vital Signs Date Time Vital Sign Value Performing Clinician Facility 05-27-2025 14:23-0400 Body height 154.9 cm Calista Risaliti PAINTER AND DECORATOR Work Phone: [facility] 05-27-2025 14:23-0400 Body mass index (BMI) [Ratio] 34.77 kg/m2 Calista Risaliti PAINTER AND DECORATOR Work Phone: [facility] 05-27-2025 14:23-0400 Body weight 83.46 kg Calista Risaliti PAINTER AND DECORATOR Work Phone: [facility] 05-27-2025 14:23-0400 Diastolic blood pressure 80 mm[Hg] Calista Risaliti PAINTER AND DECORATOR Work Phone: [facility] 05-27-2025 14:23-0400 Heart rate 83 /min Calista Risaliti PAINTER AND DECORATOR Work Phone: [facility] 05-27-2025 14:23-0400 SaO2% (BldA) [Mass fraction] 99 % Calista Risaliti PAINTER AND DECORATOR Work Phone: [facility] 05-27-2025 14:23-0400 Systolic blood pressure 130 mm[Hg] Calista Risaliti PAINTER AND DECORATOR Work Phone: [facility] 05-24-2025 12:33-0400 Body height 154.94 cm Perri Wong MD Work Phone: [facility] 05-24-2025 12:33-0400 Body temperature 97.9 [degF] Perri Wong MD Work Phone: [facility] 05-24-2025 12:33-0400 Body weight 82.05 kg Perri Wong MD Work Phone: [facility] 05-24-2025 12:33-0400 Diastolic blood pressure 80 mm[Hg] Perri Wong MD Work Phone: [facility] 05-24-2025 12:33-0400 Heart rate 79 /min Perri Wong MD Work Phone: [facility] 05-24-2025 12:33-0400 Respiratory rate 18 /min Perri Wong MD Work Phone: [facility] 05-24-2025 12:33-0400 SaO2% (BldA) [Mass fraction] 98 % Perri Wong MD Work Phone: [facility] 05-24-2025 12:33-0400 Systolic blood pressure 130 mm[Hg] Perri Wong MD Work Phone: [facility] 04-11-2025 08:08-0400 Body height 154.9 cm iMng Espinoza DO Work Phone: [facility] [...] 14:24-0400 SaO2% (BldA) [Mass fraction] 97 % Minglizz Espinoza DO Work Phone: [facility] [...] 08:34-0400 Body temperature 97.81 [degF] Lucero Didion PAINTER AND DECORATOR Work Phone: [facility] 07-27-2024 08:34-0400 Diastolic blood pressure 74 mm[Hg] Lucero Didion PAINTER AND DECORATOR Work Phone: [facility] 07-27-2024 08:34-0400 Heart rate 83 /min Lucero Didion PAINTER AND DECORATOR Work Phone: [facility] 07-27-2024 08:34-0400 SaO2% (BldA) [Mass fraction] 98 % Lucero Didion PAINTER AND DECORATOR Work Phone: [facility] 07-27-2024 08:34-0400 Systolic blood pressure 118 mm[Hg] Lucero Didion PAINTER AND DECORATOR Work Phone: [facility] 03-15-2024 17:34-0400 Body height 157.48 cm FARM MACHINERY ENGINE MECHANIC Andreia Jerry Work Phone: [facility] 03-15-2024 17:34-0400 Body mass index (BMI) [Ratio] 31.8 kg/m2 FARM MACHINERY ENGINE MECHANIC Andreia Jerry Work Phone: [facility] 03-15-2024 17:34-0400 Body temperature 100.3 [degF] FARM MACHINERY ENGINE MECHANIC Andreia Jerry Work Phone: [facility] 03-15-2024 17:34-0400 Body weight 78.92 kg FARM MACHINERY ENGINE MECHANIC Andreia Jerry Work Phone: [facility] 03-15-2024 17:34-0400 Diastolic blood pressure 79 mm[Hg] FARM MACHINERY ENGINE MECHANIC Andreia Jerry Work Phone: [facility] 03-15-2024 17:34-0400 Heart rate 88 /min FARM MACHIN[employer] ENGINE MECHANIC Andreia Jerry Work Phone: [facility] 03-15-2024 17:34-0400 Respiratory rate 18 /min FARM MACHINERY ENGINE MECHANIC Andreia Jerry Work Phone: [facility] 03-15-2024 17:34-0400 SaO2% (BldA) [Mass fraction] 96 % FARM MACHINERY ENGINE MECHANIC Andreia Jerry Work Phone: [facility] 03-15-2024 17:34-0400 Systolic blood pressure 121 mm[Hg] FARM MACHINERY ENGINE MECHANIC Andreia Jerry Work Phone: [facility] 07-30-2022 17:40-0400 Body height 157.48 cm Yaneth Toni Other [facility] [employer] Other 07-30-2022 17:40-0400 Body mass index (BMI) [Ratio] 36.69 kg/m2 Yaneth Toni Other [employer] Other 07-30-2022 17:40-0400 Body temperature 97.4 [degF] Yaneth Toni Other [employer] Other 07-30-2022 17:40-0400 Body weight 90.99 kg Yaneth Toni Other [employer] Other 07-30-2022 17:40-0400 Diastolic blood pressure 85 mm[Hg] Yaneth Toni Other [employer] Other 07-30-2022 17:40-0400 Respiratory rate 18 /min Yaneth Toni Other [employer] Other 07-30-2022 17:40-0400 SaO2% (BldA) [Mass fraction] 99 % Yaneth Toni Other [employer] Other 07-30-2022 17:40-0400 Systolic blood pressure 124 mm[Hg] Yaneth Toni Other [employer] Other 07-03-2022 09:45-0400 Body height 157.48 cm Estefania Vo Other [employer] Other 07-03-2022 09:45-0400 Body mass index (BMI) [Ratio] 36.76 kg/m2 Estefania Vo Other [employer] Other 07-03-2022 09:45-0400 Body temperature 97 [degF] Estefania Vo Other [employer] Other 07-03-2022 09:45-0400 Body weight 91.17 kg Estefania Vo Other [facility] [employer] Other 07-03-2022 09:45-0400 Diastolic blood pressure 60 mm[Hg] Estefania Vo Other [employer] Other 07-03-2022 09:45-0400 SaO2% (BldA) [Mass fraction] 99 % Estefania Vo Other [employer] Other 07-03-2022 09:45-0400 Systolic blood pressure 110 mm[Hg] Estefania Vo Other [facility] [employer] Other 06-20-2022 16:10-0400 Diastolic blood pressure 68 mm[Hg] DO Ming Espinoza Work Phone: [facility] 06-20-2022 16:10-0400 Heart rate 69 /min DO Ming Espinoza Work Phone: [facility] 06-20-2022 16:10-0400 Respiratory rate 18 /min DO Ming Espinoza Work Phone: [facility] 06-20-2022 16:10-0400 SaO2% (BldA) [Mass fraction] 100 % DO Ming Espinoza Work Phone: [facility] 06-20-2022 16:10-0400 Systolic blood pressure 126 mm[Hg] DO Ming Alexis Work Phone: [facility] 06-20-2022 13:15-0400 Body height 157.48 cm DO Ming Alexis Work Phone: [facility] 06-20-2022 13:15-0400 Body temperature 98.6 [degF] DO Ming Ibarraman Work Phone: [facility] 06-20-2022 13:15-0400 Body weight 91.5 kg DO Ming Alexis Work Phone: [facility] 06-18-2022 10:45-0400 Diastolic blood pressure 79 mm[Hg] DO Ming Espinoza Work Phone: [facility] 06-18-2022 10:45-0400 Heart rate 66 /min DO Ming Espinoza Work Phone: [facility] 06-18-2022 10:45-0400 Respiratory rate 16 /min DO Ming Espinoza Work Phone: [facility] 06-18-2022 10:45-0400 SaO2% (BldA) [Mass fraction] 100 % DO Ming Espinoza Work Phone: [facility] 06-18-2022 10:45-0400 Systolic blood pressure 130 mm[Hg] DO Ming Espinoza Work Phone: [facility] 06-18-2022 08:08-0400 Body mass index (BMI) [Ratio] 37.8 kg/m2 DO Ming Espinoza Work Phone: [facility] 06-18-2022 07:41-0400 Body height 157.48 cm DO Ming Espinoza Work Phone: [facility] 06-18-2022 07:41-0400 Body weight 93.89 kg DO Ming Espinoza Work Phone: [facility] 06-18-2022 06:26-0400 Body temperature 98.5 [degF] DO Ming Espinoza Work Phone: [facility] 05-30-2022 11:00-0400 Body height 157.48 cm Jesus Parham Other [employer] Other 05-30-2022 11:00-0400 Body mass index (BMI) [Ratio] 36.76 kg/m2 Jesus Parham Other [employer] Other 05-30-2022 11:00-0400 Body temperature 97.6 [degF] Jesus Dione Other [employer] Other 05-30-2022 11:00-0400 Body weight 91.17 kg Ejsus Dione Other [employer] Other 05-30-2022 11:00-0400 Diastolic blood pressure 76 mm[Hg] Jesus Dione Other [employer] Other 05-30-2022 11:00-0400 SaO2% (BldA) [Mass fraction] 98 % Jesus Dione Other [employer] Other 05-30-2022 11:00-0400 Systolic blood pressure 128 mm[Hg] Jesus Parham Other [employer] Other 05-02-2022 14:40-0400 Body height 157.48 cm Yaneth Toni Other [employer] Other 05-02-2022 14:40-0400 Body mass index (BMI) [Ratio] 36.76 kg/m2 Yaneth Toni Other [employer] Other 05-02-2022 14:40-0400 Body temperature 97.7 [degF] Yaneth Toni Other [employer] Other 05-02-2022 14:40-0400 Body weight 91.17 kg Yaneth Toni Other [employer] Other 05-02-2022 14:40-0400 Diastolic blood pressure 88 mm[Hg] Yaneth Toni Other [employer] Other 05-02-2022 14:40-0400 Respiratory rate 18 /min Yaneth Toni Other [employer] Other 05-02-2022 14:40-0400 SaO2% (BldA) [Mass fraction] 98 % Yaneth Toni Other [employer] Other 05-02-2022 14:40-0400 Systolic blood pressure 121 mm[Hg] Yaneth Toni Other [employer] Other 04-30-2022 10:10-0400 Body height 157.48 cm Dipika Juniorault Other [employer] Other 04-30-2022 10:10-0400 Body mass index (BMI) [Ratio] 37.86 kg/m2 Dipika Shantell Other [employer] Other 04-30-2022 10:10-0400 Body temperature 97.4 [degF] Dipika Juniorault Other [employer] Other 04-30-2022 10:10-0400 Body weight 93.9 kg Dipika Shantell Other [employer] Other 04-30-2022 10:10-0400 Diastolic blood pressure 80 mm[Hg] Dipika Shantell Other [employer] Other 04-30-2022 10:10-0400 Respiratory rate 16 /min Dipika Shantell Other [employer] Other 04-30-2022 10:10-0400 SaO2% (BldA) [Mass fraction] 100 % Dipika Stinson Other [facility] [employer] Other 04-30-2022 10:10-0400 Systolic blood pressure 117 mm[Hg] Dipika Stinson Other [facility] [employer] Other 04-01-2022 09:13-0400 Diastolic blood pressure 62 mm[Hg] DO Ming Espinoza Work Phone: [facility] 04-01-2022 09:13-0400 Heart rate 83 /min DO Ming Espinoza Work Phone: [facility] 04-01-2022 09:13-0400 Respiratory rate 16 /min DO Ming Espinoza Work Phone: [facility] 04-01-2022 09:13-0400 SaO2% (BldA) [Mass fraction] 97 % DO Ming Espinoza Work Phone: [facility] 04-01-2022 09:13-0400 Systolic blood pressure 101 mm[Hg] DO Ming Espinoza Work Phone: [facility] 04-01-2022 07:23-0400 Body height 157.48 cm DO Mnig Espinoza Work Phone: [facility] 04-01-2022 07:23-0400 Body mass index (BMI) [Ratio] 37.8 kg/m2 DO Ming Espinoza Work Phone: [facility] 04-01-2022 07:23-0400 Body temperature 97.8 [degF] DO Ming Espinoza Work Phone: [facility] 04-01-2022 07:23-0400 Body weight 93.89 kg DO Ming Espinoza Work Phone: [facility] 12-06-2021 16:20-0500 Body height 157.48 cm Yaneth Toni Other [employer] Other 12-06-2021 16:20-0500 Body mass index (BMI) [Ratio] 37.86 kg/m2 Yaneth Toni Other [employer] Other 12-06-2021 16:20-0500 Body weight 93.9 kg Yaneth Toni Other [employer] Other 12-06-2021 16:20-0500 Diastolic blood pressure 89 mm[Hg] Yaneth Toni Other [employer] Other 12-06-2021 16:20-0500 Respiratory rate 18 /min Yaneth Toni Other [employer] Other 12-06-2021 16:20-0500 SaO2% (BldA) [Mass fraction] 97 % Yaneth Toni Other [employer] Other 12-06-2021 16:20-0500 Systolic blood pressure 134 mm[Hg] Yaneth Toni Other [employer] Other 08-02-2019 16:35-0400 Body Temperature 99.3 [degF] [facility] [place] 08-02-2019 16:27-0400 Pulse (Heart Rate) 110 /min [facility] [place] 08-02-2019 16:27-0400 Pulse Oximetry 98 % [facility] [place] 08-02-2019 16:27-0400 Respiratory Rate 14 /min [facility] [place] 08-02-2019 16:16-0400 BP Diastolic 56 mm[Hg] [facility] [place] 08-02-2019 16:16-0400 BP Systolic 97 mm[Hg] [facility] , [place] 08-02-2019 14:59-0400 BMI (Body Mass Index) 37.79 kg/m2 Vidal Madrigal [place], [place] 08-02-2019 14:59-0400 Body weight 90.72 kg Vidal Madrigal [place], [place] 08-02-2019 14:59-0400 Height 154.9 cm [place] Encounters Encounter Date Encounter Type Care Provider Facility Start: 05-27-2025 End: 05-27-2025 Office outpatient visit 25 minutes Calista Fajardo NP Work Phone: [facility] [place] [facility] Comment on above: Generalized abdomina l pain (Primary Dx); Hypokalemia; Immunosuppressed status ([facility]); Essential hypertension ; Type 2 diabetes mellitus with diabetic nephropathy, without long-term current use of insulin ([facility]); Iron deficiency anemia, unspecified iron deficiency anemia type; Gastroesophageal reflux disease without esophagitis; Fibromyalgia Start: 05-27-2025 End: 05-27-2025 ambulatory MING ESPINOZA Not Available Start: 05-24-2025 End: 05-24-2025 Emergency department patient visit Perri Wong MD Work Phone: -Emergency Room Work Phone: Start: 05-04-2025 End: 05-04-2025 Clinisync Result Encounter Generic External Data Provider [facility] External Department Unsolicited Start: 05-04-2025 End: 05-04-2025 Clinisync Result Encounter Generic External Data Provider [facility] External Department Unsolicited Start: 04-11-2025 End: 04-11-2025 Patient encounter status Ming Espinoza DO Work Phone: [facility] Start: 04-11-2025 End: 04-11-2025 Periodic preventive med est patient 40-64yrs Ming Espinoza DO Work Phone: [facility] Comment on above: Benign essential hyp ertension (Primary Dx); ADPKD (autosomal dominant polycystic kidney disease); Type 2 diabetes mellitus with stage 3a chronic kidney disease, without long-term current use of insulin ([facility]); Renal transplant recipient ([facility]); Mixed anxiety and depressive disorder; [...] Ming Espinoza DO Work Phone: [facility] Comment on above: Polycystic kidney di sease (Primary Dx); Anemia of renal disease; Immunosuppressive management encounter following kidney transplant ([facility]); Renal transplant recipient ([facility]); Type 2 diabetes mellitus with stage 3a chronic kidney disease, without long-term current use of insulin ([facility]) ([facility]); Dyslipidemia ([facility]) Start: 01-03-2025 End: 01-03-2025 ambulatory MING ESPINOZA Not Available Start: 12-03-2024 End: 12-03-2024 Clinisync Result Encounter Generic External Data Provider [facility] External Department Unsolicited Start: 12-03-2024 End: 12-03-2024 Clinisync Result Encounter Generic External Data Provider [facility] External Department Unsolicited Start: 11-12-2024 End: 11-12-2024 ambulatory [facility] Start: 11-04-2024 End: 11-07-2024 Clinisync Result [...] 10-14-2024 ambulatory Ming Espinoza DO Work Phone: [facility] Work Phone: Start: 10-14-2024 End: 10-14-2024 Departed Referred Ming Espinoza DO Work Phone: [facility] Start: 10-02-2024 End: 10-02-2024 Clinisync Result Encounter Generic External Data Provider [facility] External Department Unsolicited Start: 10-02-2024 End: 10-02-2024 Clinisync Result Encounter Generic External Data Provider [facility] External Department Unsolicited Start: 10-01-2024 End: 10-01-2024 Office outpatient visit 40 minutes Ming Espinoza DO Work Phone: [facility] Comment on above: Benign essential hyp ertension ([facility]) (Primary Dx); Renal transplant recipient ([facility]); Immunosuppressive management encounter following kidney transplant ([facility]); Anemia of renal disease; Iron deficiency anemia, unspecified iron deficiency anemia type; Type 2 diabetes mellitus with stage 3a chronic kidney disease, without long-term current use of insulin (HCC) ([facility]); Dyslipidemia ([facility]); Fibromyalgia; Need for immunization against influenza Start: 10-01-2024 End: 10-01-2024 ambulatory MING ESPINOZA Not Available Start: 09-14-2024 End: 09-14-2024 Office outpatient visit 10 minutes Blake Hinojosa DO Work Phone: [facility] Comment on above: Cyst of left ovary Start: 09-14-2024 End: 09-14-2024 ambulatory BLAKE HINOJOSA Not Available Start: 08-31-2024 End: 08-31-2024 Clinisync Result Encounter Generic External Data Provider [facility] External Department Unsolicited Start: 08-31-2024 End: 08-31-2024 Clinisync Result Encounter Generic External Data Provider [facility] External Department Unsolicited Start: 08-25-2024 End: 08-25-2024 Patient encounter procedure Ming Espinoza DO Work Phone: [facility] Work Phone: Start: 08-25-2024 End: 08-25-2024 ambulatory Ming Espinoza DO Work Phone: [facility] Work Phone: Start: 08-02-2024 End: 08-03-2024 [...] encounter procedure DO Ming Espinoza Work Phone: [facility] [place] Work Phone: Start: 08-02-2024 End: 08-02-2024 ambulatory DO Ming Espinoza Work Phone: [facility] Work Phone: Start: 07-31-2024 End: 07-31-2024 Clinisync Result Encounter Generic External Data Provider [facility] External Department Unsolicited Start: 07-31-2024 End: 07-31-2024 Clinisync Result Encounter Generic External Data Provider [facility] External Department Unsolicited Start: 07-27-2024 End: 07-27-2024 Office outpatient visit 15 minutes Lucero Teresa Hudson PAINTER AND DECORATOR Work Phone: [facility] Comment on above: Acute non-recurrent pansinusitis (Primary Dx); Side effect of medication Start: 07-27-2024 End: 07-27-2024 ambulatory MING ESPINOZA Not Available Start: 07-07-2024 End: 07-07-[address] [facility] Start: 07-02-2024 End: 07-02-[address] [facility] Start: 06-29-2024 End: 06-29-2024 Clinisync Result [...] Department Unsolicited Start: 05-19-2024 End: 05-19-[address] [facility] Start: 04-27-2024 End: 04-27-2024 ambulatory MUNIRA PHAN [facility] Start: 04-23-[address] [facility] Start: 03-15-2024 End: 03-15-2024 ambulatory CECILIA Edwards Work Phone: [facility] Work Phone: Start: 03-15-2024 End: 03-15-2024 Departed Referred FARM MACHINERY ENGINE MECHANIC Andreia Edwards Work Phone: [facility] [place] Work Phone: Start: 03-15-2024 End: 03-15-2024 Patient encounter procedure FARM MACHINERY ENGINE MECHANIC Andreia Edwards Work Phone: [facility] Work Phone: Start: 11-06-2023 End: 11-06-2023 ambulatory DO Ming Espinoza Work Phone: [facility] Work Phone: Start: 11-06-2023 End: 11-06-2023 Patient encounter procedure DO Ming Espinoza Work Phone: [facility] [address] Work Phone: Start: 07-30-2022 End: 07-30-2022 ambulatory Yaneth Toni Other [email or web address] Other Start: 07-30-2022 Office outpatient vi sit 25 minutes Ayneth Toni [facility] Start: 07-29-2022 End: 07-30-2022 ambulatory YANETH TONI Facility: Start: 07-16-2022 End: 07-16-2022 ambulatory DO Minglizz Espinoza Work Phone: [facility] Work Phone: Start: 07-16-2022 End: 07-16-2022 Patient encounter procedure DO Ming Espinoza Work Phone: [facility] Start: 07-03-2022 End: 07-03-2022 ambulatory Estefania Vo Other [email or web address] Other Start: 07-03-2022 Follow-up encounter Estefania [facility] Start: 06-20-2022 End: 06-20-2022 ambulatory Jesus Chungenberg Other [email or web address] Other Start: 06-20-2022 Telephone encounter Jesus adler [facility] Start: 06-20-2022 End: 06-20-2022 Emergency department patient visit DO Ming Ibarraman Work Phone: [facility] Start: 06-18-2022 End: 06-18-2022 Admission to same day surgery center DO Ming Espinoza Work Phone: [facility] [place] Start: 06-14-2022 End: 06-14-2022 Patient encounter procedure DO Ming Espinoza Work Phone: [facility] Start: 06-06-2022 End: 06-07-[address] BRINDA HINOJOSA Facility:[facility] Start: 06-05-2022 End: 06-05-2022 Patient encounter procedure DO Minglizz Espinoza Work Phone: [facility] Start: 06-03-2022 End: 06-03-2022 ambulatory Jesus Dione Other [email or web address] Other Start: 06-03-2022 Encounter for other preprocedural examination Jesus Parham [facility] Start: 06-03-2022 Telephone encounter Jesus adler [facility] Start: 05-30-2022 End: 05-30-2022 ambulatory Jesus Dione Other [email or web address] Other Start: 05-30-2022 [facility] visit new patient Jesus Tarik isabel [facility] Start: 05-30-2022 End: 05-30-2022 Patient encounter procedure DO Ming Espinoza Work Phone: [facility] Start: 05-29-[address] BLAKE HINOJOSA [facility] ity:H1 Start: 05-02-2022 End: 05-02-2022 ambulatory Yaneth Toni Other [email or web address] Other Start: 05-02-2022 Office outpatient vi sit 25 minutes Yanethfélix Muñoz [facility] Start: 04-30-2022 End: 04-30-2022 ambulatory Dipika Shantell Other [email or web address] Other Start: 04-30-2022 Office outpatient vi sit 15 minutes Dipika Stinson [facility] Start: 04-30-2022 Encounter for preprocedural laboratory examination YANETH MUÑOZ [facility] Start: 04-29-2022 Encounter for other preprocedural examination DR DOCTOR AELJANDRO [facility] Start: 04-27-2022 End: 04-28-2022 Encounter for other preprocedural examination DR MING ESPINOZA Facility:[facility] Start: 04-27-2022 End: 04-28-[address] MING ESPINOZA Facility:[facility] Start: 04-27-2022 End: 04-28-2022 Encounter for preprocedural laboratory examination YANETH MUÑOZ Facility:[facility] Start: 04-03-2022 Encounter for other specified special examinations DR DOCTOR ALEJANDRO [facility] Start: 04-01-2022 End: 04-01-2022 Admission to same day surgery center DO Ming Espinoza Work Phone: [facility] Start: 03-29-2022 End: 03-30-[address] DOCTOR ALEJANDRO Facility:[facility] Start: 03-29-2022 End: 03-30-2022 Encounter for other specified special examinations DR DOCTOR ALEJANDRO Facility:[facility] Start: 03-28-2022 End: 03-28-2022 Patient encounter procedure DO Ming Espinoza Work Phone: [facility] Start: 02-26-2022 End: 02-26-2022 ambulatory Shabbir Jones Other [email or web address] Other Start: 02-26-2022 Telephone encounter Shabbir VELAZQUEZ [employer] Start: 12-06-2021 End: 12-06-2021 ambulatory Yaneth Toni Other [employer] Other Start: 12-06-2021 Office outpatient vi sit 25 minutes Yaneth Toni [facility] Start: 12-03-2021 End: 12-04-2021 ambulatory YANETH TONI Facility:[facility] Start: 09-01-2021 End: 09-02-[address] MING ESPINOZA Facility:[facility] Start: 08-02-2019 End: 08-02-2019 Emergency department patient visit VIDALNELIA MADRIGAL [facility] Start: 08-02-2019 End: 08-02-2019 Emergency department patient visit Vidal Madrigal Work Phone: [facility] ED Comment on above: Acute sepsis (HCC) ( Primary Dx); Acute cystitis without hematuria; Chronic renal failure, stage 4 (severe) (HCC); Polycystic kidney disease Procedures Date Procedure Procedure Detail Performing Clinician Start: 05-04-2025 ALL CBC WITH AUTO DIFF Generic External Data Provider Start: 04-02-2025 ALL MAGNESIUM Generic E xternal Data Provider Start: 04-02-2025 ALL PHOSPHOROUS Generic External Data Provider Start: 04-02-2025 ALL URIC ACID Generic E xternal Data Provider Start: 04-02-2025 [facility] CMP (CMP) (FOR [facility] USE) Generic External Data Provider Start: 04-02-2025 [...] Start: 10-02-2024 [facility] CMP (CMP) (FOR [facility] USE) Generic External Data Provider Start: 10-02-2024 [...] Provider Start: 08-31-2024 [facility] CMP (CMP) (FOR [facility] USE) Generic External Data Provider Start: 08-31-2024 METRO BILIRUBIN, DIRECT Generic External Data Provider Start: 08-31-2024 MLR HEMOGLOBIN A1C Gene dashawn External Data Provider Start: 08-25-2024 End: 08-25-2024 Screening mammography of bilateral breasts Ming Espinoza DO Work Phone: Start: 08-02-2024 Carcinoembryonic ant igen cea Blake Micaela DO Work Phone: Comment on above: Serial tumor marker results determined by assays using different manufacturers or methods may not be comparable. 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 Start: 08-02-2024 Plain chest X-ray DO Chong Espinoza Work Phone: Start: 08-02-2024 Carcinoembryonic ant igen cea Blake Hinojosa DO Work Phone: Comment on above: Result Comment: Seri al tumor marker results determined by assays using different manufacturers or methods may not be comparable. 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 ASSAY. PERFORMED BY: [place] [address] PATHOLOGIST [employer]ACH ANAHY MCKEE M.D. Performed By: #### C A125 #### [facility] , #### CEA #### [address] Start: 08-02-2024 Immunoassay tumor an tigen quantitative [...] Phone: Start: 06-18-2022 Arteriovenous fistulization DO Ming [facility] Work Phone: Start: 05-30-2022 Ultrasound (US) dopp ler flow mapping of vein of upper limb DO Ming Espinoza Work Phone: Start: 04-01-2022 Screening colonoscopy D O Ming Ibarraman Work Phone: Start: 04-01-2022 Colonoscopy Generic Pr [...] of renal transplant Tanja l transplant recipient ([facility]) Ming Espinoza DO Work Phone: History of renal transplant Tanja l transplant recipient ([facility]) Ming Espinoza DO Work Phone: History of renal transplant Tanja l transplant recipient (HCC) Ming Espinoza DO Work Phone: SARS Antigen (LFIA) DO Angy Espinoza Work Phone: Plan of Treatment Date Care Activity Detail Author Start: 04-01-2032 Screening for malign ant neoplasm of colon [facility] Start: 10-17-2025 End: 10-17-2025 Patient encounter procedure 10/17/2025 8:30 AM EST Office Visit [facility] Internal Medicine [address] [place] [id number] [facility] Start: 08-25-2025 Screening for malign ant neoplasm of breast Mammogram [facility] Start: 06-06-2025 Influenza vaccination Influenza Vacc ine (#1) [facility] Start: 06-03-2025 Hemoglobin A1c measurement Violet betes: Hemoglobin A1C [facility] Start: 05-24-2025 Hepatic function panel [facility] Start: 05-24-2025 [facility] Start: 04-23-2025 Urine screening for protein Diabetes: Urine Protein Screening [facility] Start: 04-11-2025 End: 04-11-2025 Patient encounter procedure 04/11/2025 8:00 AM EDT Office Visit [facility] [address] [place], [place] [id number] Ming Espinoza, [address] [place] [address] [facility] Start: 04-06-2025 End: 04-06-2025 Patient encounter procedure 04/06/2025 8:15 AM EDT Office Visit [facility] [address] [place] [id number] Ming Espinoza, [address] [place] [address] [facility] Start: 04-01-2025 End: 04-01-2025 Patient encounter procedure 04/01/2025 8:15 AM EDT Office Visit [facility] [address] [place], [place] [address] Ming Espinoza, DO [address] [place] [address] [facility] Start: 10-14-2024 Bacteria identified in Urine by Culture Urine Culture [facility] Start: 10-14-2024 Urine culture [facility] Start: 10-01-2024 End: 10-01-2024 Patient encounter procedure 10/01/2024 8:15 AM EST Office Visit [facility] [address] [place], [place] [address] Ming Espinoza, DO [address] [place] [address] [facility] Start: 09-14-2024 End: 09-14-2024 Patient encounter procedure 09/14/2024 8:45 AM EST Office Visit [facility] [address] [place], [place] [address] Blake Hinojosa, DO [address] [place] [address] [facility] Start: 08-26-2024 Urine screening for protein Diabetes: Urine Protein Screening [facility] Start: 08-02-2024 End: 08-02-2024 Patient encounter procedure 08/02/2024 11:00 AM EDT Office Visit [facility] [address] [place], [place] [id number] Blake Hinojosa, DO [address] [place] [address] [facility] Start: 08-02-2024 End: 08-02-2024 Professional / ancillary services management 08/02/2024 10:15 AM EDT Ancillary Procedure [facility] [address] [place] [address] [facility] Start: 08-02-2024 [facility] Start: 07-24-2024 Hemoglobin A1c measurement Violet betes: Hemoglobin A1C [facility] Start: 06-06-2024 Influenza vaccination Influenza Vacc ine (#1) [facility] Start: 03-16-2024 Bacteria identified in Urine by Culture [facility] Start: 03-15-2024 Bacteria identified in Urine by Culture [facility] Start: 11-06-2023 [facility] Start: 07-29-2023 Urine screening for protein Diabetes: Urine Protein Screening [facility] Start: 07-16-2023 Screening for malign ant neoplasm of breast Mammogram [facility] Start: 06-18-2022 [facility] Start: 06-18-2022 [facility] Start: 04-01-2022 [facility] Work Phone: Start: 06-06-2019 Influenza vaccination Flu vaccine (# 1) [place], [place] Start: 2015 Lipid screen Lipid screen [place], [place] Start: 1996 Cervical cancer screen Cervical canc er screen [place], [place] Start: 1994 DTaP/Tdap/Td vaccine (1 - Tdap) DTaP/Tdap/Td vaccine (1 - Tdap) [place], [place] Start: 1990 HIV screen HIV screen [place], [place] Start: 1985 Glaucoma screening Diabetes: R etinopathy Screening [facility] Start: 1975 Creatinine monitoring Creatinine mon itoring [place], [place] Start: 1975 Potassium monitoring Potassium monit oring [place], [place] Start: 1975 Screening for malign ant neoplasm of colon [facility] 24 hour urine measurement [facility] Albumin [Mass/volume ] in Serum or Plasma [facility] Albumin/Globulin ratio [facility] Albumin/Globulin ratio [facility] Aldolase measurement [facility] Anion gap measurement [facility] End: 08-02-2019 Bacteria identified Cx Nom (U) Urine Culture Microbiology STAT One Time for 1 Occurrences starting 08/02/2019 until 08/02/2019 [place], [place] Comment on above: One Time for 1 Occur rences starting 08/02/2019 until 08/02/2019 Bacteria identified Cx Nom (U) Urine Culture Microbiology STAT 08/02/2019 1:00 PM EDT [place] Bacteria identified in Urine by Culture URINE CULTURE, ROUTINE Lab Routine 06/10/2024 1:35 PM EDT [facility] Bacteria identified in Urine by Culture URINE CULTURE, ROUTINE Lab Routine 11/04/2024 8:55 PM EST [facility] Basophils [#/volume] in Blood by Automated count [facility] Basophils/100 leukoc ytes in Blood by Automated count [facility] Bilirubin.indirect [Mass/volume] in Serum or Plasma [facility] CA 125 CA 125 Lab Routi ne Cyst of left ovary Ordered: 08/02/2024 [facility] Comment on above: Ordered: 08/02/2024 Cancer Ag 125 [Units/volume] in Serum or Plasma [facility] Carcinoembryonic Ag [Mass/volume] in Serum or Plasma [facility] Lab Routine Cyst of left ovary Ordered: 08/02/2024 [facility] Work Phone: Comment on above: Ordered: 08/02/2024 End: 08-02-2019 Culture blood #1 Culture blood #1 Microbiology STAT One Time for 1 Occurrences starting 08/02/2019 until 08/02/2019 [place] Comment on above: One Time for 1 Occur rences starting 08/02/2019 until 08/02/2019 End: 08-02-2019 Culture blood #2 Culture blood #2 Microbiology STAT One Time for 1 Occurrences starting 08/02/2019 until 08/02/2019 [place] Comment on above: One Time for 1 Occur rences starting 08/02/2019 until 08/02/2019 EKG 12 Lead EKG 12 Lead ECG STAT 08/02/2019 12:25 PM EDT [place] Electrophoresis: [id number] [facility] Electrophoresis: [id number] [facility] Electrophoresis: beta-globulin [facility] Electrophoresis: laura ma globulin [facility] Eosinophils/100 leuk ocytes in Blood by Automated count [facility] Erythrocyte distribu tion width [Ratio] by Automated count [facility] Erythrocytes [#/volu me] in Blood [facility] Globulin [Mass/volum e] in Serum [facility] Globulin [Mass/volum e] in Serum [facility] Glomerular filtratio n rate [Volume Rate/Area] in Serum, Plasma or Blood by Creatinine [facility] Hematocrit [Volume Fraction] of Blood [facility] Hemoglobin [Mass/vol ume] in Blood [facility] Homogenous nuclear A b pattern [Titer] in Serum [facility] IgA [Mass/volume] in Serum or Plasma [facility] IgG [Mass/volume] in Serum or Plasma [facility] IgM [Mass/volume] in Serum or Plasma [facility] Immunofixation for Urine [facility] Initiate Oxygen Ther apy Protocol Initiate Oxygen Therapy Protocol Respiratory Care Routine Daily until discontinued starting 08/02/2019, 2 completed [employer] [place] Comment on above: Daily until disconti nued starting 08/02/2019, 2 completed End: 08-02-2019 Lactate, Sepsis Lactate, Sepsis Lab Timed Now Then Every 2hr for 2 Occurrences starting 08/02/2019 until 08/02/2019, 1 completed [employer] [place] Comment on above: Now Then Every 2hr f or 2 Occurrences starting 08/02/2019 until 08/02/2019, 1 completed Leukocytes [#/volume ] corrected for nucleated erythrocytes in Blood by Automated coun [facility] Leukocytes [#/volume ] in Blood [facility] Lymphocytes [#/volum e] in Blood by Automated count [facility] Lymphocytes/100 leuk ocytes in Blood by Automated count [facility] MCH [Entitic mass] b y Automated count [facility] MCHC [Mass/volume] b y Automated count [facility] MCV [Entitic volume] by Automated count [facility] Measurement of monoc lonal protein concentration [facility] Monocytes [#/volume] in Blood by Automated count [facility] Monocytes/100 leukoc ytes in Blood by Automated count [facility] Neutrophils [#/volum e] in Blood by Automated count [facility] Neutrophils/100 leuk ocytes in Blood by Automated count [facility] Nuclear Ab [Titer] i n Serum [facility] Nucleated erythrocyt es [Presence] in Blood by Automated count [facility] Patient Education [facility] Work Phone: Patient referral [facility] Work Phone: Platelet mean volume [Entitic volume] in Blood by Automated count [facility] Platelets [#/volume] in Blood [facility] Potassium [Moles/vol ume] in Serum or Plasma [facility] Work Phone: Protein [Mass/volume ] in Serum or Plasma [facility] Protein [Mass/volume ] in Urine [facility] Serum immunofixation [facility] Immunizations Immunization Date Immunization Notes Care Provider Fa [facility] 10-01-2024 Influenza, Madin Roman by Canine Kidney, subunit, trivalent, injectable, contains preservative Ming Espinoza DO Work Phone: [facility] 10-01-2024 influenza virus vacc ine, unspecified formulation Ming Espinoza DO Work Phone: [facility] 10-26-2023 Influenza, injectabl e, Madin [place] Canine Kidney, preservative free, quadrivalent Generic Provider [facility] 10-26-2023 influenza virus vacc ine, unspecified formulation Generic Provider [facility] 10-13-2021 COVID-19 [id number] (Ainsley) DO Ming Espinoza Work Phone: [facility] 05-29-2020 influenza, high dose seasonal, preservative-free Generic Provider [facility] 08-11-2019 influenza, injectabl e, madin raymond canine kidney, preservative free Generic Provider [facility] 01-26-2018 pneumococcal polysaccharide vaccine, 23 valent Generic Provider [facility] 07-22-2014 seasonal influenza, intradermal, preservative free Generic Provider [facility] Payers Date Payer Category Payer Private Health Insurance [employer] [id number] 2023 Unknown [employer] [id number] 2023-Present [address] [place] [address] [id number] 2015 Unknown [employer] [address] xxxxxxxxx 2015-Present [phone] [address] [place] [id number] xxxxxxxxx [id number] 1975 Unknown [id number] 2.16.840.1.188199.3.579. 2.173 1975 Unknown [id number] 2.16840.1.106640.3.579. 2.593 1975 Unknown [id number] 2.16840.1.264019.3.579. 2.593 1975 Unknown [id number] 2.16.840.1.262589.3.579. 2.593 1975 Unknown [id number] 2.16.840.1.684340.3.579. 2.593 1975 Unknown [id number] 2.16840.1.769649.3.579. 2.593 1975 Unknown [id number] 2.16.840.1.377719.3.579. 2.593 1975 Unknown [id number] 2.16.840.1.265022.3.579. 2.593 1975 Unknown [id number] 2.16.840.1.896602.3.579. 2.593 1975 Unknown [id number] 2.16.840.1.748701.3.579. 2.1259 1975 Unknown [id number] 2.16.840.1.464405.3.579. 2.125 1975 Unknown [id number] 2.16.840.1.415893.3.579. 2.1258 1975 Unknown [id number] 2.16.840.1.607734.3.579. 2.1258 1975 Unknown [id number] 2.16.840.1.180607.3.579. 2.9 1975 Unknown [id number] 2.16.840.1.758970.3.579. 2.1258 1975 Unknown [id number] 2.16.840.1.535140.3.579. 2.1258 1975 Unknown [id number] 2.16.840.1.787426.3.579. 2.9 1975 Unknown [id number] 2.16.840.1.952728.3.579. 2.1259 1959 Self-pay [id number] 1959 Unknown [id number] 1959 Unknown [id number] 2.16.840.1.586058.19 Unknown [id number] 2.16.840.1.901891.19 Unknown [id number] 2.16.840.1.389403.3.579. 2.531 Unknown [id number] 2.16.840.1.931120.3.579. 2.531 Unknown [id number] 2.16.840.1.550128.3.579. 2.531 Unknown [id number] 2.16.840.1.459625.3.579. 2.531 Social History Date Type Detail Facility Tobacco smoking status NHIS Unknown if ever smoked [facility] Sex Assigned At Not on file [facility] Start: 04-19-2024 End: 04-11-2025 Sex Assigned At [email or web address] Other Start: 06-05-2022 End: 03-13-2023 Tobacco smoking status NHIS Never smoked tobacco (finding) [facility] Start: 1975 Sex Assigned At Female F [facility] Start: 03-13-2023 Tobacco use and exposure Smokeless tobacco non-user [facility] Start: 07-27-2024 End: 05-27-2025 Alcoholic beverage intake Lifetime non-drinker (finding) [facility] Start: 04-19-2024 End: 04-11-2025 History of Social function [facility] How often to you hav e a drink containing alcohol? Never [facility] How many standard drinks containing alcohol do you have on a typical day? Patient does not drink [facility] Start: 05-02-2023 Alcohol Comment Caffeine: occa sional tea [facility] Start: 03-25-2023 Gender identity Identifies as female gender (finding) [facility] Start: 10-08-2023 Sexual orientation Heterosexual (fin ding) [facility] Start: 08-26-2024 End: 10-15-2024 Sex Female (finding) [facility] NEGATED: Highlighted row N [facility] Medical Equipment Procedure Code Equipment Code Equipment Origin al Text Equipment Identifier Dates Use as instructed [id number] Start: 06-10-2023 End: 06-09-2024 Goals Date Patient Goal Desired Activity /State Functional Status Date Assessment Result Facility 04-11-2025 Patient Health Quest ionnaire 2 item (PHQ-2) [Reported] [facility] Clinical Notes 05-17-2020 to 05-27-2025 Calista Fajardo NP - 05/27/2025 2:30 PM Carly Camacho MA - 09/14/2024 8:45 AM Elizabeth Camacho MA - 08/02/2024 11:00 AM EDTJedrew Hudson, PAINTER AND DECORATOR - 07/27/2024 8:20 AM EDT Note Date & Type Note Facility 05-27-2025 History of Present illness Narrative Images from the original note were not included. Mandeep Puri is a 49 y.o. female presents with chief complaint of Abdominal Pain (Better now.) HPI: History of Present Illness The patient is here today for a follow-up visit. Diabetes She has been diagnosed with diabetes and is currently on Ozempic. She reports that Ozempic makes her feel extremely sleepy. She is also trying to lose weight. She is tolerating the medication well. - Medication: Ozempic - Side Effects: Ozempic makes her feel extremely sleepy. Fibromyalgia She believes she is entering another stage of fibromyalgia, which she thinks was causing her abdominal pain. However, she has been feeling fine since scheduling this appointment. She is under the care of Dr. Ayala for her fibromyalgia. She finds it challenging to manage her pain. She is taking Cymbalta 60 mg for the pain, which was increased to 90 mg about a year ago by Dr. Ayala, but she felt almost comatose on that dose. She reduced it back to 60 mg about a week and a half ago and is feeling better. She has been off Cymbalta once before 14 years ago and felt totally spastic. She has only had steroids once from Dr. Singleton when she went on vacation. He prescribed a muscle relaxer, but she did not want to take it as it caused nightmares. - Medication: Cymbalta 60 mg for pain, previously increased to 90 mg but reduced back to 60 mg. - Side Effects: [place] almost comatose on 90 mg dose, felt totally spastic when off Cymbalta 14 years ago, muscle relaxer caused nightmares. Heartburn She experiences frequent heartburn, which she attributes to her kidney condition. She takes Pepcid as needed for indigestion and is considering taking omeprazole daily. - Medication: Pepcid as needed, considering omeprazole daily. Kidney Transplant She underwent a kidney transplant in 09/2022 and is now under the care of a transplant doctor, whom she sees every 6 months. She gets her blood work done monthly and will have it done again tomorrow morning. She plans to have her old kidney removed before . - Surgery: Kidney transplant in 09/2022. - Follow-up: Sees transplant doctor every 6 months, gets blood work done monthly. - Future Plans: Plans to have old kidney removed before . Blood Pressure Her blood pressure is usually well-controlled. The last time she checked it at home was on Friday, and it was 130/80. She does not check it every day. She occasionally experiences leg swelling. She is currently on amlodipine 10 mg every morning. - Medication: Amlodipine 10 mg every morning. - Last Readin/80 on Friday. - Symptoms: Occasionally experiences leg swelling. Potassium Level Her potassium level was low at 3.1, so she is now taking potassium pills once a day. - Medication: Potassium pills once a day. She takes iron every other day and vitamin C. Social History: Hobbies: Gardening PAST SURGICAL HISTORY: - Kidney transplant in 09/2022 - Fistula placement FAMILY HISTORY Her sister has fibromyalgia. Her brother had a kidney transplant in November 2024. I have reviewed and reconciled the history and medication list with the patient today. HISTORIES: PAST MEDICAL HISTORY: Past Medical History: Diagnosis Date Anxiety Congenital polycystic kidney unspecified type COVID 05/29/2020 positive Depression Essential hypertension, benign CIRILO (generalized anxiety disorder) 05/27/2025 Gout History of gout 05/27/2025 History of pre-eclampsia Kidney disease Moderate major depression (HCC) 05/27/2025 Other ovarian cyst, unspecified side Other and unspecified ovarian cyst Primary osteoarthritis involving multiple joints 05/27/2025 Pure hypercholesterolemia 05/27/2025 Seasonal allergies Sleep apnea, unspecified Type 2 diabetes mellitus with diabetic nephropathy, without long-term current use of insulin (HCC) 05/27/2025 SURGICAL HISTORY: Past Surgical History: Procedure Laterality Date AV FISTULA PLACEMENT Left 06/18/[address] arm per Dr. Parham. SECTION, LOW TRANSVERSE 07/23/2003 COLONOSCOPY 04/01/2022 Dx Diverticulosis IA BREAST REDUCTION 1996 TOTAL ABDOMINAL HYSTERECTOMY 03/19/2017 pathology showed simple/complex hyperplasia w/mild atypia TRANSPLANT, KIDNEY, OPEN 09/20/2022 KIdney Transplant. SOCIAL HISTORY: Social History Tobacco Use Smoking status: Never Smokeless tobacco: Never Substance Use Topics Alcohol use: Never Comment: Caffeine: occasional tea Drug use: Never Depression: Not at risk (04/11/2025) PHQ-2 PHQ-2 Score: 0 FAMILY HISTORY: Family History Problem Relation Name Age of Onset Fibromyalgia Mother Hyperlipidemia Father Selvin Polycystic kidney disease Father Selvin Heart disease Father Selvin Fibromyalgia Sister No Known Problems Brother Esophageal cancer Maternal Grandmother MEDICATIONS: Current Outpatient Medications Medication Instructions amLODIPine (NORVASC) 10 mg, Oral, Nightly DULoxetine (CYMBALTA) 60 mg, Daily Envarsus XR 0.75 MG tablet ER famotidine (PEPCID) 20 mg, Daily ferrous sulfate 325 (65 Fe) MG tablet 1 tablet, Every other day KLOR-CON 20 MEQ ER tablet 20 mEq, Daily magnesium oxide (Mag-Ox) 400 (240 Mg) MG tablet TAKE 2 TABLETS BY MOUTH IN THE MORNING AND 2 TABLETS AT BEDTIME mycophenolate (Myfortic) 180 MG EC tablet 4 tablets, 2 times daily Ozempic (2 MG/DOSE) 2 mg, Subcutaneous, Weekly pravastatin (Pravachol) 40 MG tablet Nightly Vitamin C 500 mg, Oral, Every other day ALLERGIES: Allergies Allergen Reactions Venlafaxine Other Reaction(s): Rash, hives Venlafaxine Hcl Other Reaction(s): bad side effect Allopurinol Rash PHYSICAL EXAM: Visit Vitals BP 130/80 Pulse 83 Ht 5' 1 Wt 184 lb SpO2 99% BMI 34.77 kg/m OB Status Hysterectomy Smoking Status Never BSA 1.9 m BP Readings from Last 3 Encounters: 05/27/25 130/80 01/03/25 124/82 10/01/24 124/60 Wt Readings from Last 3 Encounters: 05/27/25 184 lb 04/11/25 183 lb 9.6 oz 01/03/25 184 lb Physical Exam HENT: Mouth/Throat: Mouth: Mucous membranes are moist. Cardiovascular: Rate and Rhythm: Normal rate and regular rhythm. Heart sounds: No murmur heard. No friction rub. No gallop. Pulmonary: Effort: Pulmonary effort is normal. Breath sounds: Normal breath sounds. Abdominal: General: Bowel sounds are normal. Palpations: Abdomen is soft. Tenderness: There is no abdominal tenderness. Neurological: Mental Status: She is alert and oriented to person, place, and time. Psychiatric: Mood and Affect: Mood normal. Thought Content: Thought content normal. Results Labs - Potassium level: 3.1 - A1c: 5.2 ASSESSMENT AND PLAN: Assessment & Plan 1. Generalized abdominal pain (Primary) She reports this has resolved. She did skip a dose of Ozempic, discussed side effects and this could be contributing. Suggested when missing a dose to take a 1/2 dose before returning to the full dose. 2. Hypokalemia Hypokalemia: Potassium level 3.1. - Continue potassium pills 20 mEq once a day. - Recheck potassium levels tomorrow as she gets monthly labs for her transplant doctor. 3. Immunosuppressed status (HCC) Kidney Transplant: Post-transplant September 2022. - Scheduled removal of old kidney before . 4. Essential hypertension Hypertension: Elevated. Blood pressure 160 systolic. - Monitor blood pressure at home. Reports home readings are good. - Adjust amlodipine intake to evening to help with leg swelling. - amLODIPine (Norvasc) 10 MG tablet; Take 1 tablet (10 mg) by mouth at bedtime 5. Type 2 diabetes mellitus with diabetic nephropathy, without long-term current use of insulin ([facility]) Diabetes Mellitus: Stable. A1c 5.2. - Continue monitoring blood sugar levels. - Consider reducing Ozempic dosage if fatigue persists. 6. Iron deficiency anemia, unspecified iron deficiency anemia type Iron Deficiency: Chronic. - Take iron every other day. - Add vitamin C 500 mg [id number]-ehu-sahrwut every other day to aid in absorption. - Ascorbic Acid (Vitamin C) 500 MG capsule; Take 500 mg by mouth every other day 7. Gastroesophageal reflux disease without esophagitis Heartburn: Chronic. - Take Pepcid daily for symptom control. - Omeprazole can be taken as needed. 8. Fibromyalgia Fibromyalgia: Chronic. - Continue Cymbalta 60 mg daily. - Report any changes in symptoms. Follow-up - Blood work next week to check potassium levels. - Follow-up with transplant doctor on the . Dr. Wong was not in the office at time of visit, but was available via real-time, audio/visual technology to supervise patient care. I am following Dr. Wong's plan of care for the above issues. documented in this encounter [facility] 04-12-2025 Note re [facility] 04-05-2025 Note External Glucose was entered incorrectly in the CMP results from 04/02/25. Correct Glucose was entered separately by clinic staff member. [facility] 04-05-2025 Note res [facility] 04-05-2025 Note Results [facility] 02-02-2025 Note Reviewed poatssium teresa ganel and pt's request to switch to 10MEQ tabs with Dr. Bernal. PO received ok to change to 10MEQ and increase to 30MEQ daily. Called pt notified of change and verified pharmacy. Pt requested refills on MagOx that her pharmacy told her the doctor did not approve. Product Safety Specialist refilled MagOx. Medication list updated. [facility] 11-24-2024 Note Patient called benigno borrero a urine culture was supposed to be done on 11/12/24. No urine culture was done. Patient states she is still having symptoms of UTI. Patient would like a callback. [facility] 11-12-2024 Note Transplant Clinic Patient : [...] was seen at the ER in [facility], started on a course of Cipro, [...] flank pain. None today. Will order Ultrasound [place] and transplant kidney. Pt known hx: Chronic [...] 04/23/2024 Endocrine: L (more content not included)... [facility] 11-09-2024 Note Patient called in th [...] admission. Patient was updated and verbalized understanding. [facility] 10-21-2024 Note Pt was notified of n ew order from Dr. Blanchard by phone to complete Keflex 500mg TID for 1 week. Pt informed and verbalized understanding. RX was sent. [facility] 10-21-2024 Note Noted patient call t [...] she had sepsis and was hospitalized @ [facility] ago. She at work today and seems in good humor. [facility] 10-21-2024 Note Per phone order of Kody Mcqueen MD, patient notified via phone call to decrease their medication Myfortic dose twice a day 360 mg , will now be on 360mg twice a day an no need for urology FU at this time. Pt informed by phone and verbalized understanding. [facility] 10-21-2024 Note Pt called wanting to talk to Lu. She has uti sx's with low grade fever, chills, abd pain. She didn't think of this yesterday when she spoke with Lu. She does want to go ahead and get the abx called into [facility] in [facility] 10-20-2024 Note Noted urine culture report showing E coli MDRO from [facility]. Pt reports using BID Methamine after [...] Pt states prior to renal transplant her hand shoes sewer prescribed Bactrim for her to prevent UTIs and she wishes that the E Coli was gone from her urine. Verbalized understanding of colonization. Have asked urology clinic [place] staff via [employer] Secure Chat to contact pt for FU with Dr. Blanchard. Will discuss with this MD plan for return visit. [facility] 10-20-2024 Note Faxed stat request t o [facility] Med Records for results of 10/14/24 urine culture. [facility] 10-12-2024 Note Patient called, stat es she is having urinary burning, urgency and cloudy urine. Denies fever. Has a history of frequent UTI's and sees Dr. Blanchard, follow up appt is scheduled next month. Questions if she can get urine culture order sent to local lab at [facility]. . Per Dr. Bernal, order sent. Reviewed tac level of 3.7, no changes at this time due to possible infection. Patient verbalized understanding. [facility] 09-14-2024 History of Present illness Narrative Images from the original note were not included. Blake Hinojosa, DO Obstetrics and Gynecology Mandeep Puri 1975 09/14/24 [id number] Ultrasound Follow Up Exam Chief Complaint Patient [...] LOW TRANSVERSE 07/23/2003 COLONOSCOPY 04/01/2022 Dx Diverticulosis IA BREAST REDUCTION 1996 TOTAL ABDOMINAL HYSTERECTOMY 03/19/2017 [...] level in one week. Patient verbalized understanding. [facility] 08-02-2024 History of Present illness Narrative Images from the original note were not included. Blake Hinojosa, DO Obstetrics and Gynecology Mandeep Puri 1975 08/02/24 [id number] Yearly Wellness Exam Chief Complaint Patient presents [...] LOW TRANSVERSE 07/23/2003 COLONOSCOPY 04/01/2022 Dx Diverticulosis IA BREAST REDUCTION 1996 TOTAL ABDOMINAL HYSTERECTOMY 03/19/2017 [...] Active Problem List Diagnosis Benign essential hypertension ([facility]) Fibromyalgia MICHELLE (iron deficiency anemia) RADHA (obstructive sleep apnea) Renal transplant recipient ([facility]) Type 2 diabetes mellitus with diabetic chronic kidney disease ([facility]) Mixed anxiety and depressive disorder Dyslipidemia ([facility]) Gastroesophageal reflux disease Immunosuppressive management encounter following kidney transplant ([facility]) ADPKD (autosomal dominant polycystic kidney disease) Polyarthritis of multiple sites Anxiety Anemia of renal disease NSTEMI (non-ST elevated myocardial infarction) ([facility]) Polycystic kidney disease Secondary hyperparathyroidism ([facility]) Tonsillolith Stage 4 chronic kidney disease ([facility]) Chronic kidney disease, stage 5 ([facility]) Gout Review of Systems Constitutional: [...] pharmacy. Pt was informed and verbalized understanding. [facility] 07-07-2024 Note Chief complaint: Rec urrent [...] cyst which she will discuss with her hand shoes sewer. At this point we will recommend continuing the methenamine prophylaxis. She does not prove effective can consider lowering the Myfortic. Sree Blancahrd MD [facility] 06-15-2024 Note Patient notified of Augmentin Rx sent in to pharmacy for positive urine culture by NORMA Jasso per [employer] secure chat. Patient verbalizes understanding. [facility] 06-10-2024 Note Patient requests uri ne culture order to be refaxed to [facility]. as the hospital is telling her not received. Order promptly refaxed with confirmation received. Pt advised to FU with coordinator and alternative fax number if hospital reports again no receipt of the order. She acknowledged understanding [facility] 06-09-2024 Note Tac level 3.0, Mg [...] Patient requests order to be faxed to [facility]. [facility] 05-19-2024 Note Chief complaint: Rec urrent [...] on file Intimate Partner Violence: Unknown (11/27/2023) ID Safety & Environment Fear of Current or [...] back after the CT. Sree Blanchard MD [facility] 04-29-2024 Note Patient urine cultur e/susceptible [...] prior to urology appointment. Patient verbalized understanding. [facility] 04-27-2024 Note 04/27/24 Chief Complaint Patient [...] because they are smaller pills. PCP: Ming Esipnoza MD Txp Referring: Yaneth Muñoz Preferred Pharmacy: [facility] - [place], [place] - [address] [place] [address] [address] [facility] [place] [address] [facility] [address] [facility]/pharmacy [id number] [place] [address] [address] [place] [address] AT CORNER OF [address] [address] [facility] [place] - [address] [address] Subjective Visit Vitals BP 121/60 (BP Location: [...] Dose Status amLODIPine (Norvasc) 10 mg tablet [id number] Yes Take 1 tablet (10 mg) by mouth in the morning. Aguila Parrish MD Taking Active bumetanide (Bumex) 2 mg tablet [id number] Take 1 tablet (2 mg) by mouth in the morning. Patient not taking: Reported on 11/08/2022 Aguila Parrish MD 10/25/22 2359 docusate sodium (Colace) 100 mg capsule [id number] Take 1 capsule (100 mg) by mouth in the morning and at bedtime. Patient not taking: Reported on 09/01/2023 Paty Ansari NP Active DULoxetine (Cymbalta) [address] capsule [id number] Yes Take 1 capsule every day by oral route. Historical ProviderMD Taking Active Envarsus XR 1 mg tablet ER [id number] Yes TAKE 3 TABLETS BY MOUTH ONCE DAILY IN THE MORNING. TAKE ALONG WITH 0.75 MG TABLETS DIRECTED FOR TOTAL DOSE UP TO 4.5 MG PER DAY. Patient taking differently: Take 2 mg by mouth in the morning. Aguila Parrish MD Taking Flag for Review famotidine (Pepcid) 20 mg tablet [id number] Yes Take 1 tablet (20 mg) by mouth in the morning. Patient taking differently: Take 20 mg by mouth if needed. Aguila Parrish MD Taking Active febuxostat (Uloric) 40 mg tablet [id number] Take 0.5 tablets every day by oral route. Historical ProviderMD Active ferrous sulfate 325 (65 Fe) MG tablet [id number] Yes Take 65 mg by mouth every other day. Historical ProviderMD Taking Active fish oil ([place]-3) 60-90-500 mg capsule [id number] Take 2 capsules (1,000 mg) by mouth in the morning and at bedtime. Patient not taking: Reported on 12/23/2023 Sujit Bernal MD Active Levemir FlexPen 100 unit/mL (3 mL) pen [id number] INJECT 12 UNITS SUBCUTANEOUS IN AM 30 DAYS Historical ProviderMD Active magnesium oxide (Mag-Ox) 400 mg (241.3 mg magnesium) tablet [id number] Yes TAKE 2 TABLETS BY MOUTH IN THE MORNING AND 2 TABLETS AT BEDTIME Sree Blanchard MD Taking Active mycophenolate (Myfortic) 180 mg EC tablet [id number] Yes Take 4 tablets (720 mg) by mouth in the morning and at bedtime. Aguila Parrish MD Taking Active oxyCODONE-acetaminophen (Percocet) 5-325 mg tablet [id number] Take 1 tablet by mouth every 6 (six) hours if needed for severe pain (8-10 pain score) for up to 20 doses. Patient not taking: Reported on 09/01/2023 Paty Ansari NP Active potassium chloride CR (Klor-Con M20) 20 mEq ER tablet [id number] Yes Take 1 tablet (20 mEq) by mouth in the morning. Do not crush or chew. Andrea Elizondo MD Taking Active pravastatin (Pravachol) 40 mg tablet [id number] Yes Take 1 tablet (40 mg) by mouth at bedtime. Patient taking differently: Take 40 mg by mouth at bedtime. 40 mg 4 times a week. Fri Kevin Raymond MD Taking Active semaglutide (Ozempic) 2 mg/dose (8 mg/3 mL) pen injector [id number] Yes Inject 2 mg under the skin every 7 (seven) days. Historical Provider, Taking Active tacrolimus ER (Envarsus XR) 0.75 mg tablet ER [id number] Yes Take 2 tablets (1.5 mg) by mouth in the morning. Script total 4.5 mg daily Priyanka Villanueva MD Taking Active tacrolimus ER (Envarsus XR) 1 mg tablet ER [id number] Yes Take 3 tablets (3 mg) by mouth in the morning. Script total 4.5 mg daily Priyanka Villanueva MD Taking Active Immunization History Administered Date(s) Administered Ainsley Sars-Cov-2 Vaccination 10/13/2021 Patient Active Problem List Diagnosis Anxiety COVID-19 Depressive disorder Gastroesophageal reflux disease Gout Primary hyper (more content not included)... [facility] 04-23-2024 Note Patient TAC level, 1 [...] making change in dose. Patient verbalized understanding. [facility] 04-21-2024 Note Patient called, stat es [...] urine culture to be done, voiced understanding. [facility] 07-30-2022 Evaluation note Encounter Date Diagnosis [...] She has gout and follows with a waiter/waitress informal. She takes Urolic and denies any recent gout flare Jul, Metabolic acidemia, unspecified (ICD-10 - P19.9) She has metabolic acidosis due to the advanced CKD. Continue oral Sodium Bicarbonate [email or web address] Other 09-28-2022 Evaluation note* Encounter Date Diagnosis [...] disease, unspecified CKD stage (ICD-10 - N18.9) [email or web address] Encounter Date Diagnosis Assessment Notes Treatment Notes Treatment Clinical Notes May, Pre-op testing (ICD-10 - Z01.818) [email or web address] Other 08-25-2022 Evaluation note* Encounter Date Diagnosis [...] will schedule this in the near future. [email or web address] Other 07-28-2022 Evaluation note* Encounter Date Diagnosis [...] explained to her the potential need of IC DESIGN ENGINEER in future. I discussed with her different options of IC DESIGN ENGINEER including PD, HTN renal transplant. I [...] stephens s gout and follows with a waiter/waitress informal. She takes Urolic and denies any recent gout flare [email or web address] Other 07-26-2022 Evaluation note* Encounter Date Diagnosis [...] care provider if no improvement of symptoms. [email or web address] Other 05-24-2022 Evaluation note* Encounter Date Diagnosis Assessment Notes Treatment Notes Treatment Clinical Notes 24 May, 2022 Screening for colon cancer (ICD-10 - Z12.11) [email or web address] Other 03-03-2022 Evaluation note* Encounter Date Diagnosis [...] explained to her the potential need of IC DESIGN ENGINEER in future. I discussed with her different options of IC DESIGN ENGINEER including PD, HTN renal transplant. I [...] She has gout and follows with a waiter/waitress informal. She takes Urolic and denies any recent gout flare [email or web address] Other 06-25-2021 NotePatient Outreach (NEPHMN) MANDEEP PURI ([id number]) 1975 F Date Time Provider Department 03/30/21 PERRI BARRETT During your visit today, we recorded the following information about you: Allergies As of Date: 03/30/2021 Noted Allergy Reaction ALLOPURINOL 08/02/2019 4 - Hives Date Reviewed: 03/30/2021 Reviewed by: Perri Barrett MD - Fully Assessed Visit Diagnosis:Screening for genitourinary condition [Z13.89] Order(s):URINALYSIS, DIPSTICK ONLY [SQUA] Order #: [id number]. #:[id number] Prescriptions as of 03/30/2021 Sig: DULOXETINE 60 [...] dis*03/30/2021 Encounter Status:Closed by RUPA BAZANUSER on 04/02/21[facility] 03-30-2021 NoteHNO ID: [id number] Author: Perri Barrett MD Service: ? Author Type: Physician Type: Progress Notes Filed: 03/30/2021 10:25 AM Note Text: Mrs. 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 sirolimus [facility]rapamycin) [facility] History general Narrative - Reported * Type Description Date Medical History HTN (hypertension) Medical History Anxiety Medical History polycystic kidneys Medical History COVID 05-17-2020 Surgical History C section Surgical History BREAST REDUCTION Hospitalization History child Hospitalization History KIDNEY INFECTION 07/2019 Hospitalization History COVID AND DEHYDRATION [email or web address] Other 08-12-2020 History general Narrative - Reported* Type Description Date Medical History HTN (hypertension) Medical History Anxiety Medical History polycystic kidneys Medical History COVID 05-17-2020 Medical History end stage renal disease Surgical History C section Surgical History BREAST REDUCTION Surgical History colonoscopy 04/01/2022 Surgical History wisdom teeth 03/24/2022 Hospitalization History child Hospitalization History KIDNEY INFECTION 07/2019 Hospitalization History COVID AND DEHYDRATION [email or web address] Other 08-12-2020 History general Narrative - Reported* [...] INFECTION 07/2019 Hospitalization History COVID AND DEHYDRATION [email or web address] Other 08-12-2020 History general Narrative - Reported* [...] INFECTION 07/2019 Hospitalization History COVID AND DEHYDRATION [email or web address] Other Evaluation noteNo assessment information available [facility] Work Phone: Evaluation noteNo InformationNort [employer] Other Evaluation note* Diagnosis Onset Date Resolution Status Dysuria acute UTI (urinary tract infection) acute [facility] Work Phone: Evaluation note* Diagnosis [...] [facility] Diagnosis Benign essential hypertension ([facility]/HCC)- Primary Essential hypertension, benign Renal transplant recipient ([facility]) Immunosuppressive management encounter following kidney transplant ([facility]) Encounter for long-term (current) use of other medications Anemia of renal disease Anemia in chronic kidney disease Iron deficiency anemia, unspecified iron deficiency anemia type Type 2 diabetes mellitus with stage 3a chronic kidney disease, without long-term current use of insulin ([facility]) ([facility]) Dyslipidemia ([facility]) Other and unspecified hyperlipidemia Fibromyalgia Unspecified myalgia and myositis Need for immunization against influenza Need for prophylactic vaccination and inoculation against influenza documented in this encounter [facility] Diagnosis Polycystic kidney disease- Primary Congenital polycystic kidney, unspecified type Anemia of renal disease Anemia in chronic kidney disease Immunosuppressive management encounter following kidney transplant ([facility]) Encounter for long-term (current) use of other medications Renal transplant recipient ([facility]) Type 2 diabetes mellitus with stage 3a chronic kidney disease, without long-term current use of insulin ([facility]) ([facility]) Dyslipidemia ([facility]) Other and unspecified hyperlipidemia documented in this encounter [facility] Diagnosis Benign essential hypertension- Primary Essential hypertension, benign ADPKD (autosomal dominant polycystic kidney disease) Congenital polycystic kidney, autosomal dominant Type 2 diabetes mellitus with stage 3a chronic kidney disease, without long-term current use of insulin (HCC) Renal transplant recipient ([facility]) Mixed anxiety and depressive disorder Dysthymic disorder Chronic fatigue Other malaise and fatigue Encounter for general health examination Class 1 obesity due to excess calories with serious comorbidity and body mass index (BMI) of 34.0 to 34.9 in adult Fibromyalgia Unspecified myalgia and myositis Low vitamin D level documented in this encounter [facility]* Diagnosis Generalized abdominal pain- Primary Abdominal pain, generalized Hypokalemia Hypopotassemia Immunosuppressed status ([facility]) Essential hypertension Unspecified essential hypertension Type 2 diabetes mellitus with diabetic nephropathy, without long-term current use of insulin (HCC) Iron deficiency anemia, unspecified iron deficiency anemia type Gastroesophageal reflux disease without esophagitis Esophageal reflux Fibromyalgia Unspecified myalgia and myositis documented in this encounter [facility] HealthcareReason for referral (narrative)No reason for referral information availableA[facility] Work Phone: Assessments Diagnosis Acute sepsis (HCC)- Primary Acute cystitis without hematuria Acute cystitis Chronic renal failure, stage 4 (severe) (HCC) Polycystic kidney disease Polycystic kidney, unspecified type Advance Directives No Advanced Directives Records FoundDocuments on File Type Date Recorded Patient Memory Care Program Director Expl anation Advance Directives and Living Will Power of Cook 3 [place]ry Advance Directive Response Recorded Date/ Time Advance [...] 3:05pm Unknown October 14, 2024 7: 35am Chief Complaint Admit Date abd pain May 24, 2025 12 :06pm Additional Source Comments Reason for Visit (unrecogniz [...] Annual Exam Pt is being seen toanastasia horn for her annual physical and managment of her chronic conditions. Pt had lab work done in preparations for todays visit, results and recommendations will be reviewed with them. Fatigue Constipation Reason Comments Abdominal Pain Better now. INFORMATION SOURCE (unrecogn ized section and content) DATE CREATED AUTHOR 08/04/2019 Marielena Castillo [facility] DATE CREATED AUTHOR AUTHOR'S ORGANIZ ATION 04/28/2020 [facility] DATE CREATED AUTHOR AUTHOR'S ORGANIZ ATION 09/12/2020 [facility] DATE CREATED AUTHOR AUTHOR'S ORGANIZ ATION 11/07/2021 [facility] DATE CREATED AUTHOR AUTHOR'S ORGANIZ ATION 02/27/2022 [facility] DATE CREATED AUTHOR AUTHOR'S ORGANIZ ATION 08/04/2022 [facility] DATE CREATED AUTHOR AUTHOR'S ORGANIZ ATION 04/16/2025 [facility] DATE CREATED AUTHOR AUTHOR'S ORGANIZ ATION 05/26/2025 [facility] DATE CREATED AUTHOR AUTHOR'S ORGANIZ ATION 05/29/2025 [facility] EPIC Care Teams (unrecognized [...] March 15, 2024 End: March 15, 2024 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 Relationship Specialty Start Date End Date Ming Espinoza DO [address] [place] [address] PCP - Medical [employer] 10/06/21 10/05/99 Ming Espinoza DO [address] [place] [address] PCP - General Internal Medicine 05/02/23 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 Relationship Specialty Start Date End Date Ming Espinoza DO [address] [place] [address] PCP - Medical [employer] 10/06/21 10/05/99 Ming Espinoza DO [address] [place] [address] PCP - General Internal Medicine 05/02/23 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 Relationship Specialty Start Date End Date Ming Espinoza DO [address] [place] [address] PCP - Medical [employer] 10/06/21 10/05/99 Ming Espinoza DO [address] [place] [address] PCP - General Internal Medicine 05/02/23 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 Relationship Specialty Start Date End Date Ming Espinoza DO [address] [place] [address] PCP - Medical [employer] 10/06/21 10/05/99 Ming Espinoza DO [address] [place] [address] PCP - General Internal Medicine 05/02/23 Team [...] August 25, 2024 End: August 25, 2024 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 Relationship Specialty Start Date End Date Ming Espinoza DO [address] [place] [address] PCP - Medical [employer] 10/06/21 10/05/99 Ming Espinoza DO [address] [place] [address] PCP - General Internal Medicine 05/02/23 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 Relationship Specialty Start Date End Date Ming Espinoza DO [address] [place] [address] PCP - Medical [employer] 10/06/21 10/05/99 Ming Espinoza DO [address] [place] [address] PCP - General Internal Medicine 05/02/23 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 Relationship Specialty Start Date End Date Ming Espinoza DO [address] [place] [address] PCP - Medical [employer] 10/06/21 10/05/99 Ming Espinoza DO [address] [place] [address] PCP - General Internal Medicine 05/02/23 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 Relationship Specialty Start Date End Date Ming Espinoza DO [address] [place] [address] PCP - Medical [employer] 10/06/21 10/05/99 Ming Espinoza DO [address] [place] [address] PCP - General Internal Medicine 05/02/23 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 Relationship Specialty Start Date End Date Ming Espinoza DO [address] [place] [address] PCP - Medical [employer] 10/06/21 10/05/99 Ming Espinoza DO [address] [place] [address] PCP - General Internal Medicine 05/02/23 Team Status: Inactive Member Role Status Dates Ming Espinoza DO Primary Care Provider Active Start: October 14, 2024 End: October 14, 2024 Sujit Bernal MD Attending Provider Active S tart: October 14, 2024 End: October 14, 2024 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 Relationship Specialty Start Date End Date Ming Espinoza DO [address] [place] [address] PCP - Medical [employer] 10/06/21 10/05/99 Ming Espinoza DO [address] [place] [address] PCP - General Internal Medicine 05/02/23 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 Relationship Specialty Start Date End Date Ming Espinoza DO [address] [place] [address] PCP - Medical [employer] 10/06/21 10/05/99 Ming Espinoza DO [address] [place] [address] PCP - General Internal Medicine 05/02/23 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 Relationship Specialty Start Date End Date Ming Espinoza DO [address] [place] [address] PCP - Medical [employer] 10/06/21 10/05/99 Ming Espinoza DO [address] [place] [address] PCP - General Internal Medicine 05/02/23 Team Status: Active Member Role Status Dates Perri Wong MD Primary Care Provider Active Team Status: Inactive Member Role Status Dates Perri Wong MD Primary Care Provider Active St art: May 24, 2025 End: May 24, 2025 Alan Stein DO Emergency Provider Active St art: May 24, 2025 End: May 24, 2025 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 Relationship Specialty Start Date End Date Ming Espinoza DO [address] [place] [address] PCP - Medical [facility] 10/06/21 10/05/99 Perri Wong MD [address] [place] [address] PCP - General Internal Medicine 05/24/25 Goals (unrecognized section and content) Goals may [...] BE BASED ON THE PRIMARY CLINICAL RECORDS. [employer] [facility]. provides no warranty or guarantee of the accuracy or completeness of information in this document.
[2025-05-30 11:15] LABS: Hematocrit 40.0 % (36.0-48.0); Hemoglobin 13.8 g/dL (12.0-16.0); Immature Granulocytes Abs Auto 0.06 10^3/uL (0.00-0.03); Immature Granulocytes Pct Auto 0.7 % (0.0-0.5); Lymphocytes Absolute Auto 1.8 10^3/uL (1.2-3.8); Mean Corpuscular HGB Conc 34.5 g/dL (29.9-35.2); Mean Corpuscular Hemoglobin 29.7 pg (26.7-34.0); Mean Corpuscular Volume 86.0 fL (81.0-99.0); Platelet Count 296 10^3/uL (150-450); Red Blood Count 4.65 10^6/uL (4.20-5.40); White Blood Count 8.4 10^3/uL (4.0-11.0)
[2025-05-30 11:57] LABS: Alanine Aminotransferase 24 U/L (14-59); Albumin Globulin Ratio 0.9; Albumin Level 3.8 g/dL (3.4-5.0); Alkaline Phosphatase 88 U/L (46-116); Anion Gap 12.1; Aspartate Amino Transferase 19 U/L (15-37); Blood Urea Nitrogen 14.0 mg/dL (7.0-18.0); Calcium 9.3 mg/dL (8.5-10.1); Carbon Dioxide 27.1 mmol/L (21.0-32.0); Chloride 104 mmol/L (98-107); Estimated GFR (African America 60 (>=60 mL/min/1.73m^2); Estimated GFR (Non-African Ame 49 (>=60 mL/min/1.73m^2); Globulin 4.0 g/dL; Glucose 91 mg/dL (74-106); Magnesium 1.5 mg/dL (1.8-2.4); Potassium 3.2 mmol/L (3.5-5.1); Sodium 140 mmol/L (136-145); Total Protein 7.8 g/dL (6.4-8.2); Uric Acid 4.0 mg/dL (2.6-6.0)
[2025-06-03 06:09] LABS: Tacrolimus (FK506), Blood 5.4 ng/mL (5.0-20.0)
== END 2025-05-30 10:54 | disposition home or self-care (01) ==
PROVIDERS: PCP Internal Medicine; Visit Provider Internal Medicine Nephrology
DX: R73.01 Impaired fasting glucose (principal); Z94.0 Kidney transplant status; E78.5 Hyperlipidemia, unspecified; R60.9 Edema, unspecified
CPT/HCPCS: 36415; 80053; 80197; 82248; 83735; 84100; 84550; 85025

== ENCOUNTER 2025-07-05 07:10 | Outpatient (OUT) | payer OTHER, SELFPAY ==
--- OUTSIDE RECORDS SUMMARY | 2025-06-01 15:16 | XMS_ITS ---
Author Name Auto Generated Organization OHIP Support Name Relationship Address Phone KAROL PURI Next of Kin Unknown + KAROL PURI Next of Kin Unknown + CLARK PURI Next of Kin [address] [place] [address] + Evan Puri Next of Kin [address] [facility] [address] [place] [address] + Clark Puri Next of Kin Unknown [phone] KAROL PURI Next of Kin Unknown + CLARK PURI Next of Kin [address] [place] [address] + KAROL PURI Next of Kin Unknown + CLARK PURI Next of Kin [address] [place] [address] + KAROL PURI Next of Kin Unknown + Evan Puri Next of Kin [address] [facility] [address] [place] [address] + Clark Puri Next of Kin Unknown [phone] KAROL PURI Next of Kin Unknown + CLARK PURI Next of Kin [address] [place] [address] + KAROL PURI Next of Kin Unknown + CLARK PURI Next of Kin [address] [place] [address] + KAROL PURI Next of Kin Unknown + KHUSHICLARK Dougherty Next of Kin [address] [place] [address] + Evan Puri Next of Kin [address] [facility] [place] [place] [address] [place] [address] + KhushiClark dougherty Next of Kin Unknown [phone] KAROL PURI Next of Kin Unknown + CLARK PURI Next of Kin [address] [place] [address] + KAROL PURI Next of Kin Unknown + CLARK PURI Next of Kin [address] [place] [address] + Evan Puri Next of Kin [address] [facility] [address] [place] [address] + Clark Puri Next of Kin Unknown [phone] KAROL PURI Next of Kin Unknown + CLARK PURI Next of Kin [address] [place] [address] + KAROL PURI Next of Kin Unknown + Care Team Providers Care Bell Staff Name Role Phone DAVE ESPINOZA Referring Unavailable CARLOS ENRIQUE RICHARD Rhianna Attending Unavailable CARMEN CHAMPION Attending Unavailable CARMEN CHAMPION Attending Unavailable DAVE ESPINOZA Attending Unavailable DAVE ESPINOZA Attending Unavailable DAVE ESPINOZA Attending Unavailable SREE DAVIES Attending Unavailable TY BATRES Attending Unavailable TY BATRES Attending Unavailable Dave Espinoza Primary Care Unavailable Carmen Champion Attending Unavailable Carmen Champion Admitting Unavailable Carmen Champion Referring Unavailable Jesus Ayala Attending Unavailable Jesus Ayala Admitting Unavailable Dave Espinoza Primary Care Unavailable Alan Stein Attending Unavailable Alan Stein Admitting Unavailable Triston Wong Primary Care Unavailable Dave Espinoza Primary Care Unavailable Leon Monterroso Attending Unavailable Leon Monterroso Admitting Unavailable PROBLEMS DATE TYPE CONDITION / CODE ATTENDING STATUS [facility] 05/24/2025 Unknown Left lower quadr ant pain / R10.32(ICD-10) Alan Stein [facility] 11/12/2024 Admitting Diagnosis Kidney transplant status / Z94.0(ICD-10) TY BATRES [facility] 11/12/2024 Admitting Diagnosis Impaired fasting glucose / R73.01(ICD-10) TY BATRES [facility] 08/25/2024 Unknown Encounter for screening mammogram for malignant neoplasm of breast / Z12.31(ICD-10) Carmen Champion [facility] 08/02/2024 Unknown Elevated erythro cyte sedimentation rate / R70.0(ICD-10) Jesus Ayala [facility] 07/07/2024 Admitting Diagnosis Pelvic and perineal pain / R10.2(ICD-10) SREE DAVIES [facility] 07/07/2024 Admitting Diagnosis Unspecified abnormal findings in urine / R82.90(ICD-10) SREE DAVIES [facility] PROCEDURES No Procedure Records Found RESULTS PROGRESS Observed: 06/02/2025 1:56 PM Status: COMPLETED Source: [facility] VASHTI called pt to inform her t hat Dr. Parrish is agreeable to having her seen in clinic visit to discuss tejon nephrectomy. Communication between NORMA Crawford and Dr. Parrish confirmed CT previously done in 07/02/2024 is acceptable imaging and no need for newer test. TC called pt who reports that she would prefer appt in July because has surgery planned soon so she will need to be available for him and wants his concern resolved before starting process on tejon nephrectomy. TC and pt agreed on July 27. TC sent email to clinic staff to schedule pt in [facility]. FOLLOW-UP Observed: 06/01/2025 3:30 PM Status: COMPLETED Source: [facility] [id number] Mandeep Puri 1975 F Date Provider Department Center 06/01/2025 [id number] BATRES TXP None Family History Problem Relation Age of Onset Fibromyalgia Mother Heart disease Father Hypertension Sister Polycystic kidney disease Sister Hypertension Brother Polycystic kidney disease Brother Family Status - Relation Status Age at Mother Alive Father Sister Brother Level of Service:65989 [place] OFFICE/OUTPATIENT ESTABLISHED MOD MDM 30 MIN Reason for Visit and Comments: Kidney Follow-up [] - Pt has been having pains where her old kidney is. Her abd is also swollen since April. She also has concerns about her Tac level being in the low 5's. PROGRESS Observed: 06/01/2025 3:30 PM Status: COMPLETED Source: [facility] Transplant Clinic Patient : Mandeep Puri; 49 y.o. Reason for Visit: History of renal transplant. SUBJECTIVE: History Of Present Illness: Mandeep Puri is a 49 y.o. female who End-stage renal disease secondary to Polycystic Kidneys who underwent donor renal transplant on 09/20/2022. 06/01/2025 Patient returns regarding post transplant evaluation and immunosuppression regimen management. Denies fever or chills No dyspnea or chest pain Immunosuppression: Envarsus XR 1.5 mg p.o. daily Myfortic 360 mg (180 mg x 2 tab), p.o. twice daily Review of Systems Negative other than pertinent positives as outlined in the above HPI Chart Reviewed Historical: >>>>>>>>>>>>>>>>>>>>>>>>>>>>>>>>>>>>>>>>>>>>>>>>>>>>>>>>>>> 11/12/2024 Patient returns regarding post transplant evaluation and immunosuppression regimen management. She endorses recurrent UTIs, most recently was seen at the ER in [facility], started on a course of Cipro, [...] mg x 2 tab), p.o. twice daily 04/27/24 Review Renal US 04/14/24 Transplant/Original: IMPRESSION: [...] Return 6 months. See Urology and GI. <<<<<<<<<<<<<<<<<<<<<<<<<<<<<<<<<<<<<<<<<<<<<<<<<<<<<<<<<<<< OBJECTIVE: Visit Vitals BP 127/80 (BP Location: Right arm, Patient Position: Sitting, BP Cuff Size: Adult) Pulse 87 Temp 37.2 ???C (99 ???F) (Oral) Resp 16 Ht 1.575 m (5' 2 ) Wt 83.5 kg (184 lb) SpO2 96% BMI 33.65 kg/m??? OB Status Hysterectomy Smoking Status Never BSA 1.91 m??? Wt Readings from Last 3 Encounters: 06/01/25 83.5 kg (184 lb) 11/12/24 82.6 kg (182 lb) 10/02/24 78.5 kg (173 lb) Physical Exam Physical Exam: Constitutional: Mandeep Puri in NO acute distress Psychiatric: Normal affect, [...] patient's most recent labs as listed below: Chemistry: Lab Results Component Value Date NA 138 04/23/2024 K 3.5 04/23/2024 CL 104 04/23/2024 CO2 25 04/23/2024 BUN 13 04/23/2024 CREATININE 1.09 04/23/2024 EGFR 62.7 04/23/2024 GLUCOSE 108 (H) 04/23/2024 CALCIUM 9.4 04/23/2024 MG 1.8 (L) 04/23/2024 PHOS 2.8 04/23/2024 URICACID 4.0 04/23/2024 ALBUMIN 4.4 04/23/2024 PROT 7.6 04/23/2024 AST 14 04/23/2024 ALT 9 04/23/2024 BILITOT 0.4 04/23/2024 ALKPHOS 74 04/23/2024 Hematology: Lab Results Component Value Date WBC 8.77 04/23/2024 HGB 12.8 04/23/2024 HCT 39.2 04/23/2024 MCV 84.8 04/23/2024 PLT 337 04/23/2024 Endocrine: Lab Results Component Value Date/Time HGBA1C 5.3 04/23/2024 0757 Lipids: Lab Results Component Value Date/Time CHOL 182 04/23/2024 0757 TRIG 166 (H) 04/23/2024 0757 LDL 136 04/23/2024 0757 HDL 46 04/23/2024 0757 Viral: Lab Results Component Value Date BKQUANT Not Detected 04/23/2024 BKLOG Not Detected 04/23/2024 Urine studies: Lab Results Component Value Date PROTUR Trace 11/12/2024 PROTUR 100 (A) 04/27/2024 PROTUR 51.7 04/27/2024 CREATUR 142.0 04/27/2024 COLORU Yellow 11/12/2024 COLORU Yellow 04/27/2024 SPECGRAVU 1.012 (L) 04/27/2024 BILIRUBINUR 0 11/12/2024 BILIRUBINUR Negative 12/23/2023 BLOODU Small (A) 04/27/2024 WBCU >100 (A) 04/27/2024 LEUKOCYTESU Large (A) 04/27/2024 NITRITEU Positive (A) 04/27/2024 HOME MEDICATIONS & PAST MEDICAL/SOCIAL/FAMILY HISTORY: Home medications Encounter Medications[1] Allergies Allopurinol, Effexor [venlafaxine], and Venlafaxine hcl Past Medical History has a past medical history of Anxiety, Chronic kidney disease, stage 4 (severe) (CMS/HCC), COVID-19, Depressive disorder, Fibromyalgia, Gastroesophageal reflux disease, Gout, Hypertension, and Multiple congenital cysts of kidney. Surgical History has a past surgical history that includes Breast surgery; section, low transverse; and Hysterectomy. Social History reports that she has never smoked. She has never been exposed to tobacco smoke. She has never used smokeless tobacco. She reports that she does not currently use alcohol. She reports that she does not use drugs. Family History Family History[2] ASSESSMENT & VISIT DIAGNOSES: 1. Immunosuppression 2. Kidney replaced by transplant 3. Transplant follow-up 4. Hypokalemia PLAN: Patient with history of end stage renal disease, status post renal transplant, Cr 1.17 with relatively stable graft function. Continue with Adequate hydration. Continue with monthly labs Immunosuppression - dose changes, if indicated, will be based on monthly laboratory testing result. HTN - blood pressure in clinic reviewed. Continue to check blood pressure at home. Hypokalemia-potassium 3.2. Encourage potassium rich foods. Continue with potassium chloride 20 mill equivalents total daily Continue magnesium supplementation No orders of the defined types were placed in this encounter. Requested Prescriptions No prescriptions requested or ordered in this encounter No images are attached to the encounter or orders placed in the encounter. FOLLOW UP: Follow up: With OSWALD in renal transplant clinic Ty Batres CNP Transplant/Urology [facility] [1] Outpatient Encounter Medications as of 06/01/2025 Medication Sig Dispense Refill amLODIPine (Norvasc) 10 mg tablet Take 1 tablet (10 mg) by mouth in the morning. 30 tablet 11 docusate sodium (Colace) 100 mg capsule Take 1 capsule (100 mg) by mouth in the morning and at bedtime. 60 capsule 0 DULoxetine (Cymbalta) [address] capsule Take 90 mg by mouth in the morning. Envarsus XR 1 mg tablet ER TAKE 3 TABLETS BY MOUTH ONCE DAILY IN THE MORNING. TAKE ALONG WITH 0.75 MG TABLETS DIRECTED FOR TOTAL DOSE UP TO 4.5 MG PER DAY. (Patient taking differently: Take 1.5 mg by mouth in the morning.) 90 tablet 11 Envarsus XR 1 mg tablet ER TAKE 1 TABLET (1 MG) BY MOUTH IN THE MORNING. SCRIPT TOTAL 1.5 MG DAILy 30 tablet 11 famotidine (Pepcid) 20 mg tablet Take 1 tablet (20 mg) by mouth in the morning. 30 tablet 0 ferrous sulfate 325 (65 Fe) MG tablet Take 65 mg by mouth every other day. magnesium oxide (Mag-Ox) 400 mg (241.3 mg magnesium) tablet Take 2 tablets (800 mg) by mouth two times daily. 360 tablet 1 mycophenolate (Myfortic) 180 mg EC tablet Take 2 tablets (360 mg) by mouth two times daily. 180 tablet 11 potassium chloride CR (Klor-Con M10) 10 mEq ER tablet Take 2 tablets (20 mEq) by mouth in the morning. Do not crush or chew. 180 tablet 3 pravastatin (Pravachol) 40 mg tablet TAKE 1 TABLET BY MOUTH AT BEDTIME 90 tablet 3 semaglutide (Ozempic) 2 mg/dose (8 mg/3 mL) pen injector Inject 2 mg under the skin every 7 (seven) days. tacrolimus ER (Envarsus XR) 0.75 mg tablet ER Take 2 tablets (1.5 mg) by mouth in the morning. Script total 1.5 mg daily 180 tablet 11 oxyCODONE-acetaminophen (Percocet) 5-325 mg tablet Take 1 tablet by mouth every 6 (six) hours if needed for severe pain (8-10 pain score) for up to 20 doses. 20 tablet 0 potassium chloride CR (Klor-Con M10) 10 mEq ER tablet Take 3 tablets (30 mEq) by mouth in the morning. Do not crush or chew. (Patient not taking: Reported on 06/01/2025) 90 tablet 11 potassium chloride CR (Klor-Con M20) 20 mEq ER tablet Take 1 tablet (20 mEq) by mouth in the morning. Do not crush or chew. (Patient not taking: Reported on 06/01/2025) 90 tablet 3 No facility-administered encounter medications on file as of 06/01/2025. [2] Family History Problem Relation Name Age of Onset Fibromyalgia Mother Heart disease Father Hypertension Sister Polycystic kidney disease Sister Hypertension Brother Polycystic kidney disease Brother PROGRESS Observed: 04/12/2025 3:28 PM Status: COMP LETED Source: [facility] re PROGRESS Observed: 04/05/2025 4:32 PM Status: COMPLETED Source: [facility] External Glucose was entered incorrectly in the CMP results from 04/02/25. Correct Glucose was entered separately by clinic staff member. PROGRESS Observed: 04/05/2025 11:24 AM Status: COM PLETED Source: [facility] res PROGRESS Observed: 04/05/2025 9:56 AM Status: COMP LETED Source: [facility] Results PROGRESS Observed: 02/02/2025 2:58 PM Status: COMPLETED Source: [facility] Reviewed poatssium level and pt's request to switch to 10MEQ tabs with Dr. Monterroso. PO received ok to change to 10MEQ and increase to 30MEQ daily. Called pt notified of change and verified pharmacy. Pt requested refills on MagOx that her pharmacy told her the doctor did not approve. Drum Puller refilled MagOx. Medication list updated. ORDERS ONLY Observed: 02/02/2025 12:00 AM Status: COMPLETED Source: [facility] [id number] Mandeep Puri 1975 F Date Provider Department Center 02/02/2025 [id number] LOMAX None Family History Problem Relation Age of Onset Fibromyalgia Mother Heart disease Father Hypertension Sister Polycystic kidney disease Sister Hypertension Brother Polycystic kidney disease Brother Family Status - Relation Status Age at Mother Alive Father Sister Brother 36 Observed: 01/31/2025 10:52 AM Status: COMPLETED Source: [facility] Patient called into the offi ce requesting a refill on Potassium. She states [...] to be sent over upon your approval. REFILL Observed: 01/31/2025 12:00 AM Status: COMPLETED Source: [facility] [id number] Mandeep Puri 1975 Provider Department Center 01/31/2025 ToneyANDERSON GOTTLIEB TXCaridad None Family History Problem Relation Age of Onset Fibromyalgia Mother Heart disease Father Hypertension Sister Polycystic kidney disease Sister Hypertension Brother Polycystic kidney disease Brother Family Status - Relation Status Age at Mother Alive Father Sister Brother Reason for Visit and Comments: Med Refill [[id number]] Med Management [[id number]] DOCUMENTATION Observed: 12/14/2024 12:00 AM Status: COMPLETED Source: [facility] [id number] Mandeep Puri 1975 Provider Department Center 12/14/2024 LuigiANDERSON DEL RIO None Family History Problem Relation Age of Onset Fibromyalgia Mother Heart disease Father Hypertension Sister Polycystic kidney disease Sister Hypertension Brother Polycystic kidney disease Brother Family Status - Relation Status Age at Mother Alive Father Sister Brother Reason for Visit and Comments: Results [95] REFILL Observed: 11/25/2024 12:00 AM Status: COMPLETED Source: [facility] [id number] Mandeep Puri 1975 Provider Department Center 11/25/2024 ARIK PEREZ None Family History Problem Relation Age of Onset Fibromyalgia Mother Heart disease Father Hypertension Sister Polycystic kidney disease Sister Hypertension Brother Polycystic kidney disease Brother Family Status - Relation Status Age at Mother Alive Father Sister Brother PROGRESS Observed: 11/24/2024 9:48 AM Status: COMPLETED Source: [facility] Patient called stating a uri ne culture was supposed to be done on 11/12/24. No urine culture was done. Patient states she is still having symptoms of UTI. Patient would like a callback. PROGRESS Observed: 11/12/2024 2:30 PM Status: COMPLETED Source: [facility] Transplant Clinic Patient : Mandeep Puri; 48 [...] recently was seen at the ER in [facility], started on a course of Cipro, [...] in the above HPI Chart Reviewed Historical: >>>>>>>>>>>>>>>>>>>>>>>>>>>>>>>>>>>>>>>>>>>>>>>> 04/27/24 Review Renal US 04/14/24 Transplant/Original: IMPRESSION: [...] flank pain. None today. Will order Ultrasound tejon and transplant kidney. Pt known hx: Chronic [...] labs. Hydration. See PCP. Return 4 months. <<<<<<<<<<<<<<<<<<<<<<<<<<<<<<<<<<<<<<<<<<<<<<<< OBJECTIVE: Visit Vitals BP 136/79 (BP Location: [...] MCV 84.8 04/23/2024 PLT 337 04/23/2024 Endocrine: Lab Results Component Value Date/Time HGBA1C 5.3 04/23/2024 0757 Lipids: Lab Results Component Value Date/Time CHOL 182 04/23/2024 0757 TRIG 166 (H) 04/23/2024 0757 LDL 136 04/23/2024 0757 HDL 46 04/23/2024 0757 Viral: Lab Results Component Value Date BKQUANT Not Detected 04/23/2024 BKLOG Not Detected 04/23/2024 Urine studies: Lab Results Component Value Date PROTUR Trace 11/12/2024 PROTUR 100 (A) 04/27/2024 PROTUR 51.7 04/27/2024 CREATUR 142.0 04/27/2024 COLORU Yellow 11/12/2024 COLORU Yellow 04/27/2024 SPECGRAVU 1.012 (L) 04/27/2024 BILIRUBINUR 0 11/12/2024 BILIRUBINUR Negative 12/23/2023 BLOODU Small (A) 04/27/2024 WBCU >100 (A) 04/27/2024 LEUKOCYTESU Large (A) 04/27/2024 NITRITEU Positive (A) 04/27/2024 HOME MEDICATIONS & PAST MEDICAL/SOCIAL/FAMILY HISTORY: Home medications Outpatient Encounter Medications as of 11/12/2024 Medication Sig Dispense Refill amLODIPine (Norvasc) 10 mg tablet Take 1 tablet (10 mg) by mouth in the morning. 30 tablet 11 DULoxetine (Cymbalta) [address] capsule Take 90 mg by mouth in the morning. Envarsus XR 1 mg tablet ER TAKE 3 TABLETS BY MOUTH ONCE DAILY IN THE MORNING. TAKE ALONG WITH 0.75 MG TABLETS DIRECTED FOR TOTAL DOSE UP TO 4.5 MG PER DAY. (Patient taking differently: Take 1.5 mg by mouth in the morning.) 90 tablet 11 famotidine (Pepcid) 20 mg tablet Take 1 tablet (20 mg) by mouth in the morning. (Patient taking differently: Take 20 mg by mouth if needed.) 30 tablet 0 ferrous sulfate 325 (65 Fe) MG tablet Take 65 mg by mouth every other day. magnesium oxide (Mag-Ox) 400 mg (241.3 mg magnesium) tablet TAKE 2 TABLETS BY MOUTH IN THE MORNING AND 2 TABLETS AT BEDTIME 360 tablet 1 methenamine hippurate (Hiprex) 1 gram tablet Take 1 tablet (1 g) by mouth two times daily. 60 tablet 11 mycophenolate (Myfortic) 180 mg EC tablet TAKE 4 TABLETS BY MOUTH IN THE MORNING AND AT BEDTIME. 240 tablet 11 potassium chloride CR (Klor-Con M20) 20 mEq ER tablet Take 20 mEq by mouth in the morning. Do not crush or chew. pravastatin (Pravachol) 40 mg tablet TAKE 1 TABLET BY MOUTH AT BEDTIME 90 tablet 3 semaglutide (Ozempic) 2 mg/dose (8 mg/3 mL) pen injector Inject 2 mg under the skin every 7 (seven) days. tacrolimus ER (Envarsus XR) 0.75 mg tablet ER Take 2 tablets (1.5 mg) by mouth in the morning. Script total 4.5 mg daily 60 tablet 11 tacrolimus ER (Envarsus XR) 1 mg tablet ER Take 3 tablets (3 mg) by mouth in the morning. Script total 4.5 mg daily 90 tablet 11 amoxicillin-pot clavulanate (Augmentin) 875-125 mg tablet Take 1 tablet by mouth two times daily for 10 days. 20 tablet 0 cephalexin (Keflex) 500 mg capsule Take 1 capsule (500 mg) by mouth three times daily. 21 capsule 0 docusate sodium (Colace) 100 mg capsule Take 1 capsule (100 mg) by mouth in the morning and at bedtime. (Patient not taking: Reported on 11/12/2024) 60 capsule 0 oxyCODONE-acetaminophen (Percocet) 5-325 mg tablet Take 1 tablet by mouth every 6 (six) hours if needed for severe pain (8-10 pain score) for up to 20 doses. 20 tablet 0 [DISCONTINUED] bumetanide (Bumex) 2 mg tablet Take 1 tablet (2 mg) by mouth in the morning. 30 tablet 0 [DISCONTINUED] fish oil ([place]-3) 60-90-500 mg capsule Take 2 capsules (1,000 mg) by mouth in the morning and at bedtime. (Patient not taking: Reported on 11/12/2024) 120 capsule 3 No facility-administered encounter medications on file as of 11/12/2024. Allergies Allopurinol, Effexor [venlafaxine], and Venlafaxine hcl Past Medical History has a past medical history of Anxiety, Chronic kidney disease, stage 4 (severe) (CMS/HCC), COVID-19, Depressive disorder, Fibromyalgia, Gastroesophageal reflux disease, Gout, Hypertension, and Multiple congenital cysts of kidney. Surgical History has a past surgical history that includes Breast surgery; section, low transverse; and Hysterectomy. Social History reports that she has never smoked. She has never been exposed to tobacco smoke. She has never used smokeless tobacco. She reports that she does not currently use alcohol. She reports that she does not use drugs. Family History Family History Problem Relation Name Age of Onset Fibromyalgia Mother Heart disease Father Hypertension Sister Polycystic kidney disease Sister Hypertension Brother Polycystic kidney disease Brother ASSESSMENT & VISIT DIAGNOSES: 1. Immunosuppression (CMS/HCC) 2. Transplant follow-up 3. Kidney replaced by transplant 4. Impaired fasting blood sugar 5. Acute cystitis without hematuria PLAN: Patient with history of end stage renal disease, status post renal transplant, DDRT . Creatinine 1.38 with relatively stable graft function. Continue with Adequate hydration. Continue with monthly labs Immunosuppression -on Envarsus XR, reduced dose Myfortic 360 mg p.o. twice daily. Dose changes, if indicated, will be based on monthly laboratory testing result. Most recent TAC level 6.6 . UTI - recurrent. He is maintained on methenamine for suppression. Was given cipro at ER for 7 days, resistance to Cipro on final culture susceptibility -Proceed with Augmentin 875/125mg, p.o. twice daily x 10 days. -Encourage patient to initiate the following: Timed voiding, every 2-3 hours during waking hours. -Prevent constipation, gentle use of stool softener/Colace, MiraLAX, to maintain regular bowel movements. -Use of yogurt and probiotic -Use moist wipes to cleanse introitus after every void -Order provided for repeat urine culture, if becomes symptomatic again, to drop off urine sample at [facility] lab and notify us that a culture has been submitted HTN - blood pressure in clinic 136/79 mmHg, endorses well controlled at home. Continue to check blood pressure. Continue Anti-hypertensive regimen unchanged Hypomagnesemia - Mg level 1.8 , continue current supplementation with Mag Oxide unchanged. Orders Placed This Encounter Procedures Urine culture, routine Magnesium Hemoglobin A1c BK virus, plasma, quantitative CBC and differential Phosphorus Uric acid Lipid panel Comprehensive metabolic panel Tacrolimus level Bilirubin, direct POCT rack urine Requested Prescriptions Signed Prescriptions Disp Refills amoxicillin-pot clavulanate (Augmentin) 875-125 mg tablet 20 tablet 0 Sig: Take 1 tablet by mouth two times daily for 10 days. No images are attached to the encounter or orders placed in the encounter. FOLLOW UP: Follow up: In 6 months with OSWALD in renal transplant clinic Ty Batres CNP Transplant/Urology [facility] FOLLOW-UP Observed: 11/12/2024 2:30 PM Status: COMPLETED Source: [facility] [id number] Mandeep Puri 1975 F Date Provider Department Center 11/12/2024 [id number] BATRES None Family History Problem Relation Age of Onset Fibromyalgia Mother Heart disease Father Hypertension Sister Polycystic kidney disease Sister Hypertension Brother Polycystic kidney disease Brother Family Status - Relation Status Age at Mother Alive Father Sister Brother Level of Service:[id number] [place] OFFICE/OUTPATIENT ESTABLISHED MOD MDM 30 MIN Reason for Visit and Comments: Kidney Follow-up [[id number]] - Pt has reoccurring uti's x7 months. She is going to ID to be checked. She would like a standing lab order for a ua. PROGRESS Observed: 11/09/2024 2:31 PM Status: COMPLETED Source: [facility] Patient called in this after noon c/o ongoing urinary symptoms. She also has back pain, nausea and on/off low grade fever. Patient was treated with Keflex in mid October and recently given Cipro 250 mg BID by local ED. Reviewed with Dr. Elizondo who recommends patient come to ED to be evaluated and determine need for admission. Patient was updated and verbalized understanding. PROGRESS Observed: 10/21/2024 12:29 PM Status: COMPLETED Source: [facility] Pt was notified of new order from Dr. Davies by phone to complete Keflex 500mg TID for 1 week. Pt informed and verbalized understanding. RX was sent. PROGRESS Observed: 10/21/2024 12:29 PM Status: COMPLETED Source: [facility] Noted [facility] call [facility] stating: Pt has uti sx's with low grade fever, chills, abd pain. This coordinator informed pt today per phone order of Dr. Davies to reduce Myfortic from 720mg BID to [...] sepsis and was hospitalized @ [facility] four years ago. She at work today and seems in good humor. PROGRESS Observed: 10/21/2024 11:55 AM Status: COMPLETED Source: [facility] Per phone order of Sree fitzgerald MD, patient notified via phone call to decrease their medication Myfortic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
[2025-07-05 07:54] LABS: Hematocrit 39.4 % (36.0-48.0); Hemoglobin 13.3 g/dL (12.0-16.0); Immature Granulocytes Abs Auto 0.04 10^3/uL (0.00-0.03); Immature Granulocytes Pct Auto 0.5 % (0.0-0.5); Lymphocytes Absolute Auto 1.5 10^3/uL (1.2-3.8); Mean Corpuscular HGB Conc 33.8 g/dL (29.9-35.2); Mean Corpuscular Hemoglobin 29.0 pg (26.7-34.0); Mean Corpuscular Volume 85.8 fL (81.0-99.0); Platelet Count 342 10^3/uL (150-450); Red Blood Count 4.59 10^6/uL (4.20-5.40); White Blood Count 7.7 10^3/uL (4.0-11.0)
[2025-07-05 08:39] LABS: Alanine Aminotransferase 23 U/L (14-59); Albumin Globulin Ratio 1.0; Albumin Level 4.0 g/dL (3.4-5.0); Alkaline Phosphatase 82 U/L (46-116); Anion Gap 14.6; Aspartate Amino Transferase 16 U/L (15-37); Blood Urea Nitrogen 14.0 mg/dL (7.0-18.0); Calcium 9.7 mg/dL (8.5-10.1); Carbon Dioxide 26.5 mmol/L (21.0-32.0); Chloride 104 mmol/L (98-107); Cholesterol 201 mg/dL (<=200); Estimated GFR (African America >60 (>=60 mL/min/1.73m^2); Estimated GFR (Non-African Ame 55 (>=60 mL/min/1.73m^2); Globulin 4.2 g/dL; Glucose 114 mg/dL (74-106); HDL Cholesterol 52 mg/dL (40-60); Magnesium 1.8 mg/dL (1.8-2.4); Potassium 3.1 mmol/L (3.5-5.1); Sodium 142 mmol/L (136-145); Total Protein 8.2 g/dL (6.4-8.2); Triglycerides 185 mg/dL (<=150); Uric Acid 4.5 mg/dL (2.6-6.0); VLDL CHOLESTEROL 37.0 mg/dL
[2025-07-06 15:08] LABS: BKV DNA, Quant PCR, Plasma Negative (Negative)
[2025-07-08 16:09] LABS: Tacrolimus (FK506), Blood 6.3 ng/mL (5.0-20.0)
== END 2025-07-05 07:11 | disposition home or self-care (01) ==
LOC: LAB 07:12
PROVIDERS: PCP Internal Medicine; Visit Provider Nurse Practitioner Family
DX: Z94.0 Kidney transplant status (principal)
CPT/HCPCS: 36415; 80053; 80061; 80197; 82248; 83036; 83735; 84100; 84550; 85025; 87799

== ENCOUNTER 2025-08-03 07:05 | Outpatient (OUT) | payer OTHER, SELFPAY ==
--- OUTSIDE RECORDS SUMMARY | 2025-08-03 07:07 | XMS_ITS | Clinical Summary ---
Author Organization [facility] Address [address] [facility] [place] [address] Care Team Providers Care Voice Pathologist Name Role Phone Ming Triplett DO Unavailable [phone] Triston Wong MD Primary Care Provider Allergies Active AllergyReactionsCriticalityNoted PpqnLcpavpttHvwkohfkjylHdzeWvr75/15/2023 Iifcnvmsnpx18/10/2024 Other Reaction(s): Rash, hives Venlafaxine Hcl02/17/2023 Other Reaction(s): bad side effect Medications MedicationSigDispense QuantityRefillsLast FilledStart DateEnd DateStatus ferrous sulfate 325 (65 Fe) MG tablet Take 1 tablet by mouth every other day.07/10/2021ctive mycophenolate (Myfortic) 180 MG EC tablet Take 4 tablets by mouth in the morning and 4 tablets before bedtime.Active pravastatin (Pravachol) 40 MG tablet Take by mouth at bedtimeActive KLOR-CON 20 MEQ ER tablet Take 20 mEq by mouth DailyActive magnesium oxide (Mag-Ox) 400 (240 Mg) MG tablet TAKE 2 TABLETS BY MOUTH IN THE MORNING AND 2 TABLETS AT PYZVMWG6606/22/2024ctive DULoxetine (Cymbalta) [address] capsule Take 60 mg by mouth Daily Take with 30 MG tabletActive Envarsus XR 0.75 MG tablet ER 09/06/2024ctive Ascorbic Acid (Vitamin C) 500 MG capsule Indications:Iron deficiency anemia, unspecified iron deficiency anemia typeTake 500 mg by mouth every other day5Active famotidine (Pepcid) 20 MG tablet Take 20 mg by mouth DailyActive amLODIPine (Norvasc) 10 MG tablet Indications:Essential hypertensionTAKE 1 TABLET BY MOUTH EVERY DAY IN THE MORNING 90 tablet 5Active Semaglutide, 2 MG/DOSE, (Ozempic, 2 MG/DOSE,) 8 MG/3ML solution pen-injector Indications:Type 2 diabetes mellitus with stage 3a chronic kidney disease, without long-term current use of insulin (HCC)INJECT 2 MG SUBCUTANEOUSLY WEEKLY 9 mL 5Active Semaglutide, 2 MG/DOSE, (Ozempic, 2 MG/DOSE,) 8 MG/3ML solution pen-injector Indications:Type 2 diabetes mellitus with stage 3a chronic kidney disease, without long-term current use of insulin (HCC)Inject 2 mg under the skin 1 (one) time per week 12 mL Discontinued amLODIPine (Norvasc) 10 MG tablet Indications:Essential hypertensionTake 1 tablet (10 mg) by mouth at bedtime 5007/05/2025Discontinued Active Problems ProblemNoted DateDiagnosed DateType 2 diabetes mellitus with diabetic nephropathy, without long-term current use of mmmoeho0605/27/2025History of gout 05/27/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 involving multiple penqca5905/27/2025Pure omsvphnaealksytlvcas31/22/2025Moderate major ptjplytcpp61/22/2025GAD (generalized anxiety disorder)05/27/2025Stage 3a chronic kidney disease (CKD) 10/01/2024Secondary iptmmhunwrdwrbyenji17/12/2024Essential hypertension 03/04/20237128Zleikcmmggbo77/30/2023IDA (iron deficiency anemia)03/04/2023Renal transplant gzwspitkv19/30/2023astroesophageal reflux disease without emzddmalcmm27/26/2022DPKD (autosomal dominant polycystic kidney disease) 03/30/2021 Resolved Problems ProblemNoted DateDiagnosed DateResolved DateNSTEMI (non-ST elevated myocardial infarction)/hronic kidney disease, stage 5004/16/2024 10/01/2024HTN (hypertension)05/30/3996Joiycmwvnrqft90/30/2023 03/13/2023IFG (impaired fasting glucose)/05/2023OSA (obstructive sleep apnea)KD (chronic kidney disease) stage 4, GFR 15-29 ml/min/outy /05/2023Stage 4 chronic kidney vhvazvp51 Encounters DateTypeDepartmentCare WdktIgxnjrxqizj99/22/2025Refill [facility] [address] [place] [id number] Ming Triplett, Type 2 diabetes mellitus with stage 3a chronic kidney disease, without long-term current use of insulin (HCC)07/05/2025linisync Result Encounter [facility] External Department Unsolicited Provider, Generic External Data 07/05/2025Refill [facility] [address] [place] [address] Ming Triplett, Essential lpgjfaiegrpp64/25/2025linisync Result Encounter [facility] External Department Unsolicited Provider, Generic External Data 05/27/2025 2:30 PM EDTOffice Visit [facility] [address] [place] [address] Calista Fajardo, [employer] WORK[employer] Generalized abdominal pain (Primary Dx); Hypokalemia; Immunosuppressed status (HCC); Essential hypertension ; Type 2 diabetes mellitus with diabetic nephropathy, without long-term current use of insulin (HCC); Iron deficiency anemia, unspecified iron deficiency anemia type; Gastroesophageal reflux disease without esophagitis; Xueiznfhdbfw18/22/8679Yndcgy38/21/2025Patient Outreach [facility] [address] [place] [address] Rina Ybarra LSW 05/04/2025linisync Result Encounter [facility] External Department Unsolicited Provider, Generic External Data from Last 3 Months Immunizations ImmunizationAdministration DatesNext DueInfluenza, High Dose Seasonal, Preservative Free05/29/2020Influenza, Injectable, MDCK, preservative free 08/11/2019Influenza, Madin Mack Canine Kidney, subunit, trivalent, injectable, contains raqvulrurwml22/27/2024Influenza, injectable, MDCK, preservative free, tkcygurdnron83/21/2024Influenza, seasonal, intradermal, preservative free 07/22/2014Pneumococcal Polysaccharide CHGB8597 Family History Medical HistoryRelationNameCommentsNo Known ProblemsBrotherHeart diseaseFather DavidHyperlipidemiaFatherDavidPolycystic kidney diseaseFatherDavidEsophageal cancerMaternal GrandmotherFibromyalgiaMotherFibromyalgiaSisterRelationNameStatus CommentsBrotherFatherDavidDeceasedMaternal GrandmotherMotherSisterSonAlive Social History Tobacco UseTypesPacks/DayYears UsedDateSmoking Tobacco: NeverSmokeless Tobacco: Never Tobacco Cessation:Counseling Given: Not Answered Alcohol UseStandard Drinks/WeekCommentsNever0 (1 standard drink = 0.6 oz pure alcohol)Caffeine: occasional teaAUDIT-CAnswerDate RecordedQ1: How often do you have a drink containing alcohol?Never04/19/2024Q2: How many drinks containing alcohol do you have on a typical day when you are drinking?Patient does not drink04/19/2024Q3: How often do you have six or more drinks on one occasion? Never04/19/2024HQ-2AnswerDate RecordedPatient Health Questionnaire-2 Score0 04/11/2025CommentsNoSex and Gender InformationValueDate RecordedSex Assigned at QmdblOqhoui95/20/2023 2:02 PM EDTLegal AneRewyxa52/15/2023 6:37 PM EDTGender UecqwcaoSxfdog22/20/2023 2:02 PM EDTSexual OrientationStraight 10/08/2023 9:32 AM ESTOccupationIndustryJob Start DateJob End DateUnemployedNot on fileNot on fileNot on file Last Filed Vital Signs Vital SignReadingTime TakenCommentsBlood Ipmdwaew335/8008 2:23 PM EDT Spaap443005/27/2025 2:23 PM GXZNewxttaommr99.6 ??C (97.8 ??F)07/27/2024 8:34 AM EDTRespiratory Rate--Oxygen Ehgevcvhes42%05/27/2025 2:23 PM EDTInhaled Oxygen Concentration--Ruarwy38.5 kg (184 lb)05/27/2025 2:23 PM IHAMigqnm235.9 cm (5' 1 )05/27/2025 2:23 PM EDTBody Mass Index34.77005/27/2025 2:23 PM EDT Plan of Treatment DateTypeDepartmentCare Team (Latest Contact Info)Dpkaaqhmddg90/12/2026 8:30 AM ESTOffice Visit [facility] [address] [place] [phone] Health MaintenanceDue DateLast DoneCommentsCT Hwujagnwxvvi55/15/1976FIT-DNA 1975FIT1975FOBT1975 8970Qavweiynrybee87/15/1976Diabetes: Retinopathy Pozkhkrsv07/15/1986Diabetes: Urine Protein Jztlhrmqd20/24/2023 07/29/2022, 04/27/2022, 04/27/2022, Additional history existsDiabetes: Hemoglobin A1C/, 04/23/2024, 04/23/2024, Additional history existsInfluenza Vaccine (#1)/, 10/26/2023, 05/29/2020, Additional history udkrefAyvhksewa72/20/202511/, 07/31/2023, 07/16/2022, Additional history ndbdxoMvxdngltwsm94/27/203206/olorectal Cancer Jtuxekuhf58/27/2032Cervical Cancer ScreeningDiscontinuedHPV/CotestDiscontinued 4Pap SmearDiscontinued Procedures Procedure NamePriorityDate/TimeAssociated DiagnosisCommentsTACROLIMUS (FK506), QIANSMkxpcqi76/30/2025 7:25 AM EDT BKV QUANT CSOThpyjdl49/30/2025 7:25 AM EDT ALL LIPID PROFILE (FASTING)Ufweddl2507/05/2025 7:25 AM EDT METRO BILIRUBIN, NCZDAQHihknvt35/30/2025 7:25 AM EDT ALL HALOREXYHYrwknyh21/30/2025 7:25 AM EDT ALL HYEFSAOPPPWPqhksxb07/30/2025 7:25 AM EDT ALL URIC UYGWQxrpysf43/30/2025 7:25 AM EDT [facility] CMP (CMP) (FOR REMOTE [facility] USE)Jqctggp8907/05/2025 7:25 AM EDT MLR HEMOGLOBIN D6RUpmrhlw34/30/2025 7:25 AM EDT ALL CBC WITH AUTO LFELSpqrmzs18/30/2025 7:25 AM EDT TACROLIMUS (FK506), HYJDXRiwbtvc53/25/2025 11:10 AM EDT METRO BILIRUBIN, ENTFWQVccxxhp26/25/2025 11:10 AM EDT ALL ZBQEVQINOXramdlq32/25/2025 11:10 AM EDT ALL SDVBIVAWGTVWcebhvf04/25/2025 11:10 AM EDT ALL URIC QGSHWvdbqiq93/25/2025 11:10 AM EDT [facility] CMP (CMP) (FOR REMOTE [facility] USE)Rexilgq3105/30/2025 11:10 AM EDT ALL CBC WITH AUTO YILGKnziafe08/25/2025 11:10 AM EDT TACROLIMUS (FK506), NCLFWXbdnqbd37/30/2025 7:55 AM EDT METRO BILIRUBIN, QXWCJMUmzwwyp07/30/2025 7:55 AM EDT ALL QCUMUSIQRRgdhlpl52/30/2025 7:55 AM EDT ALL CMHDLEQWCCDNwfjamo28/30/2025 7:55 AM EDT ALL URIC MSIPLpeamfi63/30/2025 7:55 AM EDT [facility] CMP (CMP) (FOR REMOTE [facility] USE)Zdpiwaz9805/04/2025 7:55 AM EDT ALL CBC WITH AUTO POTGDatpnjg34/30/2025 7:55 AM EDT BI MAMMOGRAM SCREENING TOMOSYNTHESIS RLMDDUVVQ34/20/2024 3:23 PM EST THINPREP IMAGING PAP W/REFL HPV MRNA E6/Z7Phkjptt51/15/2024 12:00 AM EDT Encounter for Papanicolaou smear of vagina POCT GLYCOSYLATED HEMOGLOBIN (HGB A1C)Qwazfkz7606/10/2023 4:14 PM EDT Type 2 diabetes mellitus with stage 3a chronic kidney disease, without long-term current use of insulin (HCC) URINE T PROTEIN CREAT KNSIOYlitbao31/24/2022 TNBQTORVEJEPcjfwns20/27/2022 12:00 PM EDT from Last 3 Months or Most Recently Relevant to Health Maintenance Results * BKV QUANT PCR (07/05/2025 7:25 AM EDT)ComponentValueRef RangeTest Method Analysis TimePerformed AtPathologist SignatureBKV DNA, QUANT PCR, PLASMA NegativeNegative IU/mLTBHComment: No BK DNA detected. The linear range of the assay is 22 - 100,000,000 IU/mL. Performed at: ?? - [facility] [address] ??[id number] Medical Parasitologist: Gabriel Whitman PhD, Phone: ??[phone] LOG10 BKV DNA,PLASMATNP.TBHSpecimen (Source)Anatomical Location / Laterality Collection Method / VolumeCollection TimeReceived Time07/05/2025 7:25 AM EDT 07/05/2025 7:38 AM EDT Narrative [facility] - 07/06/2025 3:08 PM EDT Authorizing ProviderResult TypeResult StatusGeneric External Data ProviderLAB BLOOD ORDERABLESFinal ResultPerforming OrganizationAddressCity/State/ZIP Code Phone Number [facility] * TACROLIMUS (FK506), BLOOD (07/05/2025 7:25 AM EDT) Only the most recent of3 resultswithin the time period is included. ComponentValueRef RangeTest MethodAnalysis TimePerformed AtPathologist Signature TACROLIMUS (FK506), BLOOD6.35.0 - 20.0 ng/mLTBHComment: This test was developed and its performance characteristics determined by [facility]. It has not been cleared or approved by the Food and Drug Administration. Target steady state trough concentration for Tacrolimus varies based on type of organ transplant immunosuppressive protocol and other patient specific factors. ??Tacrolimus trough concentrations should be interpreted in conjunction with clinical assessments of rejection and tolerability. ??Values obtained with different assay methods cannot be used interchangeably due to differences in assay methods and cross-reactivty with metabolites, nor should correction factors be applied. ??Therefore, consistent use of one assay for individual patients is recommended. Detection Limit = 0.5 ng/mL Performed by LC-MS/MS technology. Performed at: ?? - [facility] ??[id number] Medical Parasitologist: Jose De Los Santos MD, Phone: ??[phone] Specimen (Source)Anatomical Location / LateralityCollection Method / Volume Collection TimeReceived Time07/05/2025 7:25 AM EDT07/05/2025 7:38 AM EDT Narrative [facility] - 07/08/2025 4:09 PM EDT Authorizing ProviderResult TypeResult StatusGeneric External Data ProviderLAB BLOOD ORDERABLESFinal ResultPerforming OrganizationAddressty/State/[facility] Code Phone Number [facility] * MLR HEMOGLOBIN A1C (07/05/2025 7:25 AM EDT)ComponentValueRef RangeTest Method Analysis TimePerformed AtPathologist SignatureGLYCOHEMOGLOBIN A1C5.24.5 - 6.2 %TBHComment: ADA RECOMMENDED LIMIT 4.0 - 6.0 ADA THERAPEUTIC TARGET < 7.0 ACTION SUGGESTED > 7.0 ESTIMATED AVERAGE IHYRJSR888kb/dLTBHSpecimen (Source)Anatomical Location / LateralityCollection Method / VolumeCollection TimeReceived Time07/05/2025 7:25 AM EDT07/05/2025 7:38 AM EDT Narrative [facility] - 07/05/2025 8:05 AM EDT Authorizing ProviderResult TypeResult StatusGeneric External Data Provider CLINISYNCFinal ResultPerforming OrganizationAddPhoenixville Hospitalty/[facility] CodePhone Number [facility] * METRO BILIRUBIN, DIRECT (07/05/2025 7:25 AM EDT) Only the most recent of3 resultswithin the time period is included. ComponentValueRef RangeTest MethodAnalysis TimePerformed AtPathologist Signature BILIRUBIN DIRECT0.10.0 - 0.2 mg/dLTBHSpecimen (Source)Anatomical Location / LateralityCollection Method / VolumeCollection TimeReceived Time07/05/2025 7:25 AM EDT07/05/2025 7:38 AM EDT Narrative [facility] - 07/05/2025 8:48 AM EDT Authorizing ProviderResult TypeResult StatusGeneric External Data Provider CLINISYNCFinal ResultPerforming OrganizationAddPhoenixville Hospitalty/[facility] CodePhone Number [facility] * (ABNORMAL) [facility] CMP (CMP) (FOR REMOTE [facility] USE) (07/05/2025 7:25 AM EDT) Only the most recent of3 resultswithin the time period is included. ComponentValueRef RangeTest MethodAnalysis TimePerformed AtPathologist Signature MNZJMF492294 - 145 mmol/LTBHPOTASSIUM3.1(L)3.5 - 5.1 mmol/KVRKAQIZNOMX02545 - 107 mmol/LTBHCARBON BNSQLEH37.521.0 - 32.0 mmol/LTBHANION GAP14.4YKYZSDEVSF375 (H)74 - 106 mg/dLTBHBLOOD UREA LHKHKDRF35.07.0 - 18.0 mg/dLTBHCREATININE1.06(H) 0.55 - 1.02 mg/dLTBHTBH EGFR-AF SUDANESE>60>=60 mL/min/1.73m 2TBHTBH EGFR-NON AF ADAUPLFB70(L)>=60 mL/min/1.73m 2TBHBUN CREATININE RATIO13.1TAHJAFUJXX7.78.5 - 10.1 mg/dLTBHBILIRUBIN TOTAL0.40.2 - 1.0 mg/dLTBHASPARTATE AMINO DYLQVNWLXEB8399 - 37 U/LTBHALANINE RUIRYGGLWEWXLAGG1356 - 59 U/LTBHALKALINE DEYZWTHRCYU9138 - 116 U/LTBHTOTAL PROTEIN8.26.4 - 8.2 g/dLTBHALBUMIN LEVEL4.03.4 - 5.0 g/dLTBH GLOBULIN4.2g/dLTBHALBUMIN GLOBULIN RATIO1.0TBHSpecimen (Source)Anatomical Location / LateralityCollection Method / VolumeCollection TimeReceived Time 07/05/2025 7:25 AM EDT07/05/2025 7:38 AM EDT Narrative [facility] - 07/05/2025 8:48 AM EDT Authorizing ProviderResult TypeResult StatusGeneric External Data Provider CLINISYNCFinal ResultPerforming OrganizationAddressty/State/ZIP CodePhone Number [facility] * ALL URIC ACID (07/05/2025 7:25 AM EDT) Only the most recent of3 resultswithin the time period is included. ComponentValueRef RangeTest MethodAnalysis TimePerformed AtPathologist Signature URIC ACID4.52.6 - 6.0 mg/dLTBHSpecimen (Source)Anatomical Location / Laterality Collection Method / VolumeCollection TimeReceived Time07/05/2025 7:25 AM EDT 07/05/2025 7:38 AM EDT Narrative CLIN[facility]YWI - 07/05/2025 8:48 AM EDT Authorizing ProviderResult TypeResult StatusGeneric External Data Provider CLINISYNCFinal ResultPerforming OrganizationAddressty/State/ZIP CodePhone Number [facility] * ALL PHOSPHOROUS (07/05/2025 7:25 AM EDT) Only the most recent of3 resultswithin the time period is included. ComponentValueRef RangeTest MethodAnalysis TimePerformed AtPathologist Signature PHOSPHORUS3.62.6 - 4.7 mg/dLTBHSpecimen (Source)Anatomical Location / Laterality Collection Method / VolumeCollection TimeReceived Time07/05/2025 7:25 AM EDT 07/05/2025 7:38 AM EDT Narrative [facility] - 07/05/2025 8:48 AM EDT Authorizing ProviderResult TypeResult StatusGeneric External Data Provider CLINISYNCFinal ResultPerforming OrganizationAddressty/State/ZIP CodePhone Number [facility] * ALL MAGNESIUM (07/05/2025 7:25 AM EDT) Only the most recent of3 resultswithin the time period is included. ComponentValueRef RangeTest MethodAnalysis TimePerformed AtPathologist Signature MAGNESIUM1.81.8 - 2.4 mg/dLTBHSpecimen (Source)Anatomical Location / Laterality Collection Method / VolumeCollection TimeReceived Time07/05/2025 7:25 AM EDT 07/05/2025 7:38 AM EDT Narrative [facility] - 07/05/2025 8:48 AM EDT Authorizing ProviderResult TypeResult StatusGeneric External Data Provider CLINISYNCFinal ResultPerforming OrganizationAddPhoenixville Hospitalty/State/ZIP CodePhone Number [facility] TB * (ABNORMAL) ALL LIPID PROFILE (FASTING) (07/05/2025 7:25 AM EDT)ComponentValue Ref RangeTest MethodAnalysis TimePerformed AtPathologist Signature CRLTJJUNUKAOQ818(H)<=150 mg/iJYHYZXLXJIKUXOU261(H)<=200 mg/dLTBHHDL YDOBLHQQIZS1510 - 60 mg/dLTBHComment: > or =60 mg/dl - LOW CARDIOVASCULAR RISK <40 mg/dl - HIGH CARDIOVASCULAR RISK LDL CHOLESTEROL EEKTTMTBOC287.0mg/dLTBHComment: <100 mg/dl OPTIMAL 100-129 mg/dl NEAR OR ABOVE OPTIMAL 130-159 mg/dl BORDERLINE HIGH 160-189 mg/dl HIGH >190 mg/dl VERY HIGH VLDL ECFUIDHYSAP69.0mg/dLTBHCHOL HDL RATIO3.9TBHComment: 3.3 - 4.4 ?? LOW RISK 4.4 - 7.1 ?? AVERAGE RISK 7.1 - 11.0 ??MODERATE RISK >11.0 HIGH RISK Specimen (Source)Anatomical Location / LateralityCollection Method / Volume Collection TimeReceived Time07/05/2025 7:25 AM EDT07/05/2025 7:38 AM EDT Narrative [facility] - 07/05/2025 8:48 AM EDT Authorizing ProviderResult TypeResult StatusGeneric External Data Provider CLINISYNCFinal ResultPerforming OrganizationAddressCity/State/ZIP CodePhone Number [facility] * (ABNORMAL) ALL CBC WITH AUTO DIFF (07/05/2025 7:25 AM EDT) Only the most recent of3 resultswithin the time period is included. ComponentValueRef RangeTest MethodAnalysis TimePerformed AtPathologist Signature TBH WBC7.74.0 - 11.0 10 3/uLTBHTBH RBC4.594.20 - 5.40 10 6/uLTBHTBH HGB13.312.0 - 16.0 g/dLTBHTBH HCT39.436.0 - 48.0 %TBHTBH MCV85.881.0 - 99.0 fLTBHTBH MCH29.0 26.7 - 34.0 pgTBHTBH MCHC33.829.9 - 35.2 g/dLTBHTBH RDW13.811.0 - 15.0 %TBHTBH UYU334988 - 450 10 3/uLTBHTBH MPV9.0(L)9.5 - 13.5 fLTBHNEUTROPHILS PERCENT AUTO 70.043.0 - 75.0 %TBHLYMPHOCYTES PERCENT AUTO19.9(L)20.5 - 60.0 %TBHMONOCYTES PERCENT AUTO5.41.7 - 12.0 %TBHTBH EO %3.60.9 - 7.0 %TBHBASOPHILS PERCENT AUTO0.6 0.2 - 2.0 %TBHIMMATURE GRANULOCYTES PCT AUTO0.50.0 - 0.5 %TBHNEUTROPHILS ABSOLUTE AUTO5.41.4 - 6.5 10 3/uLTBHLYMPHOCYTES ABSOLUTE AUTO1.51.2 - 3.8 10 3/uLTBHMONOCYTES ABSOLUTE AUTO0.40.3 - 0.8 10 3/uLTBHTBH EO #0.30.0 - 0.7 10 3/uLTBHBASOPHILS ABSOLUTE AUTO0.10.0 - 0.1 10 3/uLTBHIMMATURE GRANULOCYTES ABS AUTO0.04(H)0.00 - 0.03 10 3/uLTBHSpecimen (Source)Anatomical Location / LateralityCollection Method / VolumeCollection TimeReceived Time07/05/2025 7:25 AM EDT07/05/2025 7:38 AM EDT Narrative [facility] - 07/05/2025 8:01 AM EDT Authorizing ProviderResult TypeResult StatusGeneric External Data Provider CLINISYNCFinal ResultPerforming OrganizationAddressCity/State/ZIP CodePhone Number [facility] * Bilateral screening mammogram with tomosynthesis (08/25/2024 3:23 PM EST) Anatomical RegionLateralityModalityBreastBilateralMammographySpecimen (Source) Anatomical Location / LateralityCollection Method / VolumeCollection Time Received Time08/25/2024 3:23 PM EST Impressions 08/25/2024 3:26 PM EST NO MAMMOGRAPHIC EVIDENCE OF MALIGNANCY. ? ROUTINE FOLLOW-UP IS RECOMMENDED IN ONE YEAR. ? RESULT CODE: 1 ? Negative ? DENSITY CODE: 2 (approximately 25-50% glandular) ? FOLLOW UP: 1YR ? The false-negative rate of mammography is approximately 10-percent. ? Management of a palpable abnormality must be based on clinical grounds. ? Patient was entered into a reminder system with a target due date for the next mammogram. ? Impression dictated by: Evan Messina Jr., D.O.08/25/2024 3:24 PM ? Dictation Location: S01 ? Transcribed By: ? PWS ?08/25/24 1524 ? Dictated By: ?Evan TorresJr andre, DO ?08/25/24 1523 ? Signed By: <Electronically signed by Evan Messina Jr, DO in OV> ?08/25/24 1524 Narrative 08/25/2024 3:26 PM [facility] ?[facility] [place] ?[address] ? [place] [address] ? Mammography Report ? Signed ? Patient: Khushi,Patsy L ?MR#: [id number] ?? 15 ? : 1975 ?Acct:[id number] ? Age/Sex: 48 / F ?ADM Date: 08/25/24 ? Loc: [place] ?Room: ?Type: REG CLI ?? Attending Dr: Blake Hinojosa DO ?? Copies to: Ming Triplett DO ?? Blake Hinojosa,DO ? Ordering Provider: Blake Hinojosa DO ?? Date of Service: 08/25/24 ?? MM/MM screening mammo BI w/CAD: SCREENING ? CLINICAL DATA: ??Screening for malignancy. ? SCREENING MAMMOGRAM - FULL FIELD DIGITAL WITH TOMOSYNTHESIS AND CAD ? COMPARISON:Mammograms dating back to 2019 ? Tomosynthesis craniocaudal and mediolateral oblique views of both breasts were obtained using low- dose digital technique. ?? This examination was reviewed with the aid of CAD. ? FINDINGS: ? The breast tissue is composed of scattered fibroglandular densities. ??There are no dominant masses, typically malignant calcifications or architectural distortion. ??There has been no significant interval change. ? MM/MM screening mammo BI w/CAD ?? Procedure Note Radiology, Radiologist, - 08/25/2024 [facility] [place] [address] [place] [address] Mammography Report Signed Patient: Patsy Puri LMR#: [id number] 15 : 1975Acct:[id number] Age/Sex: 48 / FADM Date: 08/25/24 Loc: [place] Room:Type: [facility] Attending Dr: Blake Hinojosa DO [...] Messina Jr., D.O.08/25/2024 3:24 PM Dictation Location: [facility] Transcribed By: SALMA 08/25/24 1524 Dictated By: Evan Messina Jr, DO 08/25/24 1523 Signed By: <Electronically signed by Evan Messina Jr, DO inOV> 08/25/24 1524 Authorizing ProviderResult TypeResult StatusBlake Hinojosa DOIMG BI PROCEDURES Final Result * THINPREP IMAGING PAP W/REFL HPV MRNA E6/E7 (04/19/2024 12:00 AM EDT)Component ValueRef RangeTest MethodAnalysis TimePerformed AtPathologist Signature CLINICAL INFORMATIONQUESTComment:None givenLMPQUESTComment:BAM BS 2017PREV. PAPQUESTComment:NEGPREV. BXQUESTComment:None givenSOURCEQUESTComment:None givenSTATEMENT OF ADEQUACYQUESTComment:SATISFACTORY FOR EVALUATION INTERPRETATION/RESULTQUESTComment: Cytology Results: Negative for intraepithelial lesion or malignancy. COMMENTQUESTComment: This Pap test has been evaluated with computer assisted technology. CYTOTECHNOLOGISTQUESTComment: Reference Range: ZL, CT(ASCP) CT screening location: [place] [address]. (ALWAYS MESSAGE)QUESTComment: EXPLANATORY NOTE: The Pap is a screening test for cervical cancer. It is not a diagnostic test and is subject to false negative and false positive results. It is most reliable when a satisfactory sample, regularly obtained, is submitted with relevant clinical findings and history, and when the Pap result is evaluated along with historic and current clinical information. Specimen (Source)Anatomical Location / LateralityCollection Method / Volume Collection TimeReceived TimeSwabVaginal structure / Rijrptb59/ 3:47 AM EDT Narrative Resulting Agency Comment Performing Organization Information ?Site ID: [id number] ?Name: [facility] ?Address: [address] [place] [phone] ?Director: Bran Flowers MD Authorizing ProviderResult TypeResult Katelin Hinojosa DOLAB CYTOLOGY ORDERABLESFinal ResultPerforming OrganizationAddressCity/State/ZIP CodePhone Number [facility] * (ABNORMAL) POCT glycosylated hemoglobin (Hb A1C) docked device (06/10/2023 4:14 PM EDT)ComponentValueRef RangeTest MethodAnalysis TimePerformed At Pathologist SignatureHemoglobin A1C6.9Specimen (Source)Anatomical Location / LateralityCollection Method / VolumeCollection TimeReceived TimeBloodVenous blood specimen / Llwpmwt7406/10/2023 4:14 PM EDT Narrative Authorizing ProviderResult TypeResult StatusMing Triplett DOPOINT OF CARE TEST ENTER/EDIT ORDERABLESEdited Result - Final * (ABNORMAL) URINE T PROTEIN CREAT RATIO (07/29/2022)ComponentValueRef RangeTest MethodAnalysis TimePerformed AtPathologist SignaturePROTEIN, URINE29.7(HH) <=12.0[facility]INE CREAT53.3520.00 - 300.00[facility]UR PROT CREAT RAT0.56[facility] EXTER[facility] LABPERFORMING LAB:see noteNOMS LEGACY EXTERNAL LABComment:[address] [facility] - [address] [place], [place] [id number] ,Ext. [phone] specimen (Source)Anatomical Location / LateralityCollection Method / VolumeCollection TimeReceived Time07/29/2022 Narrative Authorizing ProviderResult TypeResult Nabila Triplett DOECW LABSFinal ResultPerforming OrganizationAddressCity/State/ZIP CodePhone Number [facility] * Colonoscopy (04/01/2022 12:00 PM EDT)Anatomical RegionLateralityModality EndoscopySpecimen (Source)Anatomical Location / LateralityCollection Method / VolumeCollection TimeReceived Time04/01/2022 12:00 PM EDT Narrative 04/01/2022 12:00 PM EDT PERFORMED AT [facility] LOCATION:[id number] diverticulosis Procedure Note CONVERSION, GENERIC - 02/19/2023 PERFORMED AT [facility] LOCATION:[id number] diverticulosis Authorizing ProviderResult TypeResult StatusMing Triplett DOENDOSCOPY PROCEDURE ORDERABLESFinal Result from Last 3 Months or Most Recently Relevant to Health Maintenance Insurance MemberSubscriberPlan / Payer (Effective 2023-Present)Name:Patsy Puri Relation to Subscriber:SpouseName:Evan Puri Date of :1970 Address: [address] [place] [id number] Payer ID:Not on file Type:Not on file Address: [place] [id number] Care Teams Team MemberRelationshipSpecialtyStart DateEnd Date Ming Triplett DO [address] [place] [address] PCP - Medical [place] [employer]10/06/2211 Triston Wong MD [address] [place] [address] PCP - GeneralInternal Medicine05/24/25
--- OUTSIDE RECORDS SUMMARY | 2025-08-03 07:07 | XMS_ITS | Clinical Summary ---
Author Organization [facility] Address [address] [place] [address] Phone Care Team Providers Care Private Duty Rn Name Role Phone Ming Triplett DO Primary Care Provider [phone] Social History Tobacco UseTypesPacks/DayYears UsedDateSmoking Tobacco: Never Assessed CommentsUnknownSex and Gender InformationValueDate RecordedSex Assigned at Not on fileLegal FpxGwnxpg27/25/2022 7:01 PM ESTGender IdentityNot on fileSexual OrientationNot on file Plan of Treatment Not on file Care Teams Team MemberRelationshipSpecialtyStart DateEnd Date Ming Triplett DO [address] [place] [address] PCP - General01/06/19
--- OUTSIDE RECORDS SUMMARY | 2025-08-03 07:07 | XMS_ITS | Clinical Summary ---
Author Organization [facility] Address [address] [place] [address] Care Team Providers Care Geotechnical Operating Engineer Name Role Phone Sita Camp Unavailable Ming Triplett MD Primary Care Provider [phone] Patrick Sam MD Unavailable Nelson Davies MD Unavailable Romero Zamarripa CNP Unavailable [phone] Allergies Active AllergyReactionsCriticalityNoted RrdnOplghxcgTixrsugppjw94/26/2022 XjvwqktogbiIcymx20/15/2022Venlafaxine Hcl07/10/2021 Other reaction(s): bad side effect Medications MedicationSigDispense QuantityRefillsLast FilledStart DateEnd DateStatus DULoxetine (Cymbalta) [address] capsule Take 90 mg by mouth in the morning.Active ferrous sulfate 325 (65 Fe) MG tablet Take 65 mg by mouth every other day.Active docusate sodium (Colace) 100 mg capsule Indications:Drug induced constipationTake 1 capsule (100 mg) by mouth in the morning and at bedtime. 60 capsule 09/23/2022ctive amLODIPine (Norvasc) 10 mg tablet Indications:Hypertension, unspecified typeTake 1 tablet (10 mg) by mouth in the morning. 30 tablet 11010/24/2022ctive famotidine (Pepcid) 20 mg tablet Indications:Kidney transplantedTake 1 tablet (20 mg) by mouth in the morning. 30 tablet 2022ctive Envarsus XR 1 mg tablet ER Indications:Kidney transplantedTAKE 3 TABLETS BY MOUTH ONCE DAILY IN THE MORNING. TAKE ALONG WITH 0.75 MG TABLETS DIRECTED FOR TOTAL DOSE UP TO 4.5 MG PER DAY. 90 tablet 1113Active Additional Information Patient taking differently: 1.5 mg oral Daily, Reported on 06/01/2025 semaglutide (Ozempic) 2 mg/dose (8 mg/3 mL) pen injector Inject 2 mg under the skin every 7 (seven) days.Active mycophenolate (Myfortic) 180 mg EC tablet Indications:Kidney transplantedTake 2 tablets (360 mg) by mouth two times daily. 180 tablet 5Active Envarsus XR 1 mg tablet ER Indications:Kidney replaced by transplantTAKE 1 TABLET (1 MG) BY MOUTH IN THE MORNING. SCRIPT TOTAL 1.5 MG DAILy 30 tablet 5Active tacrolimus ER (Envarsus XR) 0.75 mg tablet ER Indications:Kidney replaced by transplantTake 2 tablets (1.5 mg) by mouth in the morning. Script total 1.5 mg daily 180 tablet 5Active potassium chloride CR (Klor-Con M10) 10 mEq ER tablet Indications:Electrolyte disorderTake 2 tablets (20 mEq) by mouth in the morning. Do not crush or chew. 180 tablet /6Active magnesium oxide (Mag-Ox) 400 mg (241.3 mg magnesium) tablet Indications:History of kidney transplantTake 2 tablets (800 mg) by mouth two times daily. 360 tablet 5Active pravastatin (Pravachol) 40 mg tablet Indications:Encounter for aftercare following kidney transplantTAKE 1 TABLET BY MOUTH EVERYDAY AT BEDTIME 90 tablet 3095Active pravastatin (Pravachol) 40 mg tablet Indications:Encounter for aftercare following kidney transplantTAKE 1 TABLET BY MOUTH AT BEDTIME 90 tablet /Discontinued Active Problems ProblemNoted DateDiagnosed VodlGjuobttsvpmno45/01/2023 Myopathy, unspecified 12/25/20229433Uapcjfndgkji40/22/2023Electrolyte yxsmpwbsw53/26/2023History of gout 12/01/2022Immunosuppressive management encounter following kidney transplant 10/23/20222133Jrcguni53/18/9143Yophjrlfdlprnt52/18/2023Immunosuppressed status 10/01/20225841Whzsmvcmzuwyo38/27/2022Metabolic sighcbsl76/27/2022ilateral lower extremity edema10/01/20226228Wtiphgvotke33/27/2022Encounter for aftercare following kidney vlxvuagkso95/16/2101Iuczhho43/26/2022epressive zugaqxvg17/26/2022 Gastroesophageal reflux vaegyfn4507/01/2022Gout07/01/2022rimary hypertension 07/01/2022Multiple congenital cysts of wftlbn3907/01/2022tage 4 chronic kidney oqdkxug0507/01/2022OVID-19005/17/2020 Encounters DateTypeDepartmentCare IojvIpisjkblsku87/30/2025Refill [facility] Transplant [address] [place] [address] Priyanka Villanueva MD Encounter for aftercare following kidney itjapuuqbn52/27/2025 3:30 PM EDT Follow-Up [facility] Transplant [address] [place] [address] Ty Concepcion CNP Immunosuppression (Primary Dx); Kidney replaced by transplant; Transplant follow-up; Hypokalemiafrom Last 3 Months Family History Medical HistoryRelationNameCommentsHypertensionBrotherPolycystic kidney disease BrotherHeart diseaseFatherFibromyalgiaMotherHypertensionSisterPolycystic kidney diseaseSisterRelationNameStatusCommentsBrotherFatherDeceasedMotherAliveSister Social History Tobacco UseTypesPacks/DayYears UsedDateSmoking Tobacco: NeverPassive Smoke Exposure: NeverSmokeless Tobacco: Never Tobacco Cessation:Counseling Given: Not Answered Alcohol UseStandard Drinks/WeekCommentsNot Currently0 (1 standard drink = 0.6 oz pure alcohol)2-3 a year , winePHQ-2AnswerDate RecordedPatient Health Questionnaire-2 Ydeqq633UT Safety & EnvironmentAnswerDate RecordedFear of Current or Ex-PartnerNot on file11/27/2023Emotionally AbusedNot on file 11/27/2023hysically AbusedNot on file11/27/2023Sexually AbusedNot on file 4Physically or Sexually AbusedNot on file4CommentsNo Sex and Gender InformationValueDate RecordedSex Assigned at BirthFemale 07/13/2022 9:44 AM EDTLegal BcrDrqbnc77/30/2022 12:44 AM EDTGender Identity Pwrmcg7507/13/2022 9:44 AM EDTSexual OrientationChoose not to lvsygvku83/08/2022 9:44 AM EDT Last Filed Vital Signs Vital SignReadingTime TakenCommentsBlood Tyfjlton090/8008 4:15 PM EDT Xyllo3897 4:15 PM ZTMFxbouwasszw07.2 ??C (99 ??F)06/01/2025 4:15 PM EDT Respiratory Kmhp146306/01/2025 4:15 PM EDTOxygen Kfglthomid58%06/01/2025 4:15 PM EDTInhaled Oxygen Concentration--Waqyny05.5 kg (184 lb)06/01/2025 4:15 PM EDT Eetved535.5 cm (5' 2 )06/01/2025 4:15 PM EDTBody Mass Index33.6508 4:15 PM EDT Plan of Treatment DateTypeDepartmentCare Team (Latest Contact Info)Iwcqnbeuwww23/25/2026 8:00 AM ESTFollow-Up [facility] Transplant [address] [place] [phone] Aguila Parrish MD [address] [place] [address] 12/07/2025 2:00 PM ESTFollow-Up [facility] Transplant [address] [place] [address] Ty Concepcion, ALESHA [address] [address] [facility] [place], [place] [id number] Health MaintenanceDue DateLast DoneCommentsCT Shejolzkajrq51/15/1976FIT-DNA 1975FIT1975FOBT1975 2825Wgjoewnzzvivt43/15/1976Diabetes: Retinopathy Alghjnbqf10/15/1986Diabetes: Urine Protein Lecmtmacn26/15/1995 Hepatitis B Vaccines (1 of 3 - 19+ 3-dose series)1994Zoster Vaccines (1 of 2)1994Pap Smear1996Adult Gvpkpio6911/20/1997Cervical Cancer Screening 2005HPV/Wlcaax9711/20/2005Pneumococcal Vaccine: Pediatrics (0 to 5 Years) and At-Risk Patients (6 to 64 Years) (2 of 2 - PCV)COVID-19 Vaccine (2 - Ainsley risk series)/2Diabetes: Hemoglobin A1C /, 08/26/2023, 02/24/2023, Additional history existsInfluenza Vaccine (#1)/, 10/26/2023, 10/19/2023, Additional history existsDepression Ladsqjhel50/6914Wwfxiquda46/20/567167/, 1139Mwjtbxayewh61/27/203206/2Colorectal Cancer Uqmeotyfx77/27/2032 HIB VaccinesAged OutNo longer eligible based on patient's age to complete this topicHPV VaccinesAged OutNo longer eligible based on patient's age to complete this topicIPV VaccinesAged OutNo longer eligible based on patient's age to complete this topicMeningococcal B VaccineAged OutNo longer eligible based on patient's age to complete this topicMeningococcal VaccineAged OutNo longer eligible based on patient's age to complete this topicRotavirus VaccinesAged Out No longer eligible based on patient's age to complete this topic Medical Devices ExplantedTypeAreaManufacturerDevice IdentifierShelf Expiration DateModel / Serial / LotStent,Ureteral,Polarultra,5x12 - [id number] Implanted:Qty: 1 on 09/20/2022 by Aguila Parrish MD at [facility] Explanted:10/15/2022 (Quantity not on file)StentN/A: UreterBoston Scientific [id number] / / [id number]:Transplant ureter Procedures Procedure NamePriorityDate/TimeAssociated DiagnosisCommentsEXT CBCRoutine 05/04/2025 7:55 AM EDT EXT COMPREHENSIVE METABOLIC JQLLGNjbqgeh43/30/2025 7:55 AM EDT HEMOGLOBIN G1ZArrujyt24/19/2024 7:57 AM EDT Impaired fasting glucose from Last 3 Months or Most Recently Relevant to Health Maintenance Results * External CBC (05/04/2025 7:55 AM EDT)ComponentValueRef RangeTest Method Analysis TimePerformed AtPathologist SignatureExternal WBC8.1External RBC4.56 External Xquosahaaf62%External Ohdevjlita43.4g/dLExternal Eggdfhevr624R/uLEXT MCV86.4fLEXT MCH29.4pgEXT MCHC34.0g/dLEXT RDW13.9%Ext Neutrophils Fljsacpm88.8 %Ext Lymphocytes Hhseawdi68.3%Ext Monocytes Relative5.2%Ext Eosinophils Relative3.8%Ext Basophils Relative0.5%Specimen (Source)Anatomical Location / LateralityCollection Method / VolumeCollection TimeReceived TimeBloodVenous blood specimen / Psowktp3605/04/2025 7:55 AM EDT Narrative Authorizing ProviderResult TypeResult StatusHistorical Provider [facility] EXTERNAL ORDERSFinal Result * External Comprehensive metabolic panel (05/04/2025 7:55 AM EDT)ComponentValue Ref RangeTest MethodAnalysis TimePerformed AtPathologist SignatureExternal Fasting Ziyuyow406zw/LExternal Creatinine, Serum1.17mg/mLExternal BUN13.0mg/dL External Potassium3.1mmol/LExternal Sodium, xjomh362ogfl/LExternal CO2, total 26.7mEq/LExternal Osidmryp740ntle/LExternal Calcium9.4mg/dLExternal Albumin3.9 External Protein, total8.1g/dLExternal ALT24U/LExternal AST19U/LExternal Bilirubin,total0.4mg/dLSpecimen (Source)Anatomical Location / Laterality Collection Method / VolumeCollection TimeReceived TimeBloodVenous blood specimen / Phcevhx3505/04/2025 7:55 AM EDT Narrative Authorizing ProviderResult TypeResult StatusHistorical Provider [facility] EXTERNAL ORDERSFinal Result * Hemoglobin A1c (04/23/2024 7:57 AM EDT)ComponentValueRef RangeTest Method Analysis TimePerformed AtPathologist SignatureHemoglobin A1C5.34.0 - 6.0 % 04/23/2024 12:23 PM [facility] ([facility])Estimated Average Cdtpqjd468 mg/dL04/23/2024 12:23 PM [facility] ([facility])Specimen (Source) Anatomical Location / LateralityCollection Method / VolumeCollection Time Received TimeBloodVenous blood specimen / UnknownVenipuncture / Unknown 04/23/2024 7:57 AM EDT04/23/2024 7:57 AM EDT Narrative Authorizing ProviderResult TypeResult StatusDinromelia Magdaleno AKTRENT BLOOD ORDERABLES Final ResultPerforming OrganizationAddressCity/State/ZIP CodePhone Number [facility] ([facility]) [address] [place] [address] from Last 3 Months or Most Recently Relevant to Health Maintenance Insurance * Guarantor: Malina Julio TypeRelation to PatientDate of BirthPhone Billing AddressPersonal/OsxhhmUesv[birth year][address] [address] * Guarantor: Malina Julio TypeRelation to PatientDate of BirthPhone Billing AddressTransplant SfphzkirbNpff77/[birth year]/[address] [address] Advance Directives * Full Code (Latest Code Status on File) Date ActivatedDate XijfwfbfjidRaqmltgn36/16/2022 4:39 AM09/23/2022 5:38 PM * Full Code Date ActivatedDate GypwlaqjhpgBiezzumj33/15/2022 7:04 PM09/20/2022 4:39 AM * Full Code Date ActivatedDate QjkxsbltifwPkldtpod20/15/2022 6:18 PM09/19/2022 6:49 PM Care Teams Team MemberRelationshipSpecialtyStart DateEnd Date Ming Triplett MD [address] PCP - Joqlmtk36/8/22 Yaneth Camp MD [address] [place] [address] Referring Coiieilfg32/3/22 Patrick Sam MD [address] [place] [address] [address] [place] [phone] Consulting CffxvzgqzFghgegl18/10/22 Nelson Davies MD [address] [place] [address] Consulting NgfpvmljlBsxfaun01/7/22 Romero Zamarripa, HURRICANE TRACKER [address] [place] [address] Nurse PractitionerUrology12/23/23
--- OUTSIDE RECORDS SUMMARY | 2025-08-03 07:07 | XMS_ITS | Encounter Summary ---
Author Organization [facility] Address [address] [place] [address] Care Team Providers Care Project Scheduler Name Role Phone Ming Triplett DO Unavailable [phone] Triston Wong MD Primary Care Provider [phone] Reason for Visit * ReasonCommentsMed Refill Encounter Details DateTypeDepartmentCare Team (Latest Contact Info)Dpbbdryuzsx64/22/2025Refill [facility] [address] [facility] [address] [place] [phone] Ming Triplett DO [address] [facility] [address] [place] [address] Type 2 diabetes mellitus with stage 3a chronic kidney disease, without long-term current use of insulin (HCC) Social History Tobacco UseTypesPacks/DayYears UsedDateSmoking Tobacco: NeverSmokeless Tobacco: NeverAlcohol UseStandard Drinks/WeekCommentsNever0 (1 standard drink = 0.6 oz pure alcohol)Caffeine: occasional teaAUDIT-CAnswerDate RecordedQ1: How often do you have a drink containing alcohol?Never04/19/2024Q2: How many drinks containing alcohol do you have on a typical day when you are drinking?Patient does not drink04/19/2024Q3: How often do you have six or more drinks on one occasion?Never04/19/2024HQ-2AnswerDate RecordedPatient Health Questionnaire-2 Rzehz145CommentsNoSex and Gender InformationValueDate Recorded Sex Assigned at DtywuSbiknm05/20/2023 2:02 PM EDTLegal FngRpxzly12/15/2023 6:37 PM EDTGender OsycuxjoBhoiwd30/20/2023 2:02 PM EDTSexual OrientationStraight 10/08/2023 9:32 AM ESTOccupationIndustryJob Start DateJob End DateUnemployedNot on fileNot on fileNot on filedocumented as of this encounter Miscellaneous Notes * Telephone Encounter - Angela Becerril LPN - 07/27/2025 8:27 AM EDT [facility] [place] [facility] on Semaglutide. Dosage and Directions confirmed with last office note and medication sent documented in this encounter Plan of Treatment DateTypeDepartmentCare Team (Latest Contact Info)Iinrgobknem61/12/2026 8:30 AM ESTOffice Visit [facility] [address] [place] [address] documented as of this encounter Visit Diagnoses Diagnosis Type 2 diabetes mellitus with stage 3a chronic kidney disease, without long-term current use of insulin (HCC) documented in this encounter Care Teams Team MemberRelationshipSpecialtyStart DateEnd Date Ming Triplett DO [address] [place] [address] PCP - Medical [place] [employer]10/06/2211 Triston Wong MD [address] [place] [address] PCP - GeneralInternal Medicine05/24/25documented as of this encounter
--- OUTSIDE RECORDS SUMMARY | 2025-08-03 07:08 | XMS_ITS | CCD ---
Author Organization [facility] Care Team Providers Care Remedy Developer Name Role Phone Ming Espinoza Primary Care Provider VIDAL MADRIGAL Attending Unavailable MING ESPINOZA Primary Care Unavailable Toni, Yaneth Unavailable Shabbir Jones Unavailable Dipika Stinson Unavailable Jesus Parham Unavailable [phone] DO Ming Espinoza Primary Care Provider [phone] MD Shabbir Jones Attending Provider [phone] MD Yaneth Muñoz Attending Provider MD Jesus Parham Attending Provider [phone] Estefania Vo Unavailable DO Ming Espinoza Primary Care Provider EB Forman Emergency Provider DO Blake Hinojosa Attending Provider [phone] ANGELAC, DR ZARAGOZA Admitting Unavailable DR MING [...] Unavailable Ming Espinoza DO Primary Care Provider [phone] DO Ming Espinoza Primary Care Provider MD Jesus Ayala Attending Provider [phone] DO Blake Hinojosa Referring Provider Ming Espinoza DO Primary Care Provider [phone] Jesus Ayala MD Attending Provider [phone] Blake Hinojosa DO Referring Provider Blake Hinojosa DO Attending Provider [phone] Leon Monterroso MD Attending Provider Perri Wong MD Primary Care Provider Alan Stein DO Emergency Provider [phone] Perri Wong MD Primary Care Provider [phone] MING ESPINOZA Attending Unavailable MING ESPINOZA Attending Unavailable MING ESPINOZA Referring Unavailable LUCERO HUDSON Attending Unavailable BLAKE HINOJOSA Attending Unavailable BLAKE HINOJOSA Attending Unavailable MING ESPINOZA Attending Unavailable Ming Espinoza Primary Care Unavailable Blake Hinojosa Attending Unavailable Blake Hinojosa Admitting Unavailable Blake Hinojosa Referring Unavailable Jesus Ayala Attending Unavailable Jesus Ayala Admitting Unavailable Ming Espinoza Primary Care Unavailable Alan Stein Attending Unavailable Alan Stein Admitting Unavailable Perri Wong Primary Care Unavailable Ming Espinoza Primary Care Unavailable Leon Monterroso Attending Unavailable Loc, Leon Admitting Unavailable LEO BATRES Attending Unavailable LEO BATRES Attending Unavailable Allergies Allergy ClassificationReported Allergen(s)Allergy TypeDate of OnsetReaction(s) Facility (20 sources)Allopurinol; Translations: [ALLOPURINOL]Drug Rhjbbrj08-25-8822qfpgnRay[place], [place] (20 sources)venlafaxine; Translations: [venlafaxine]Drug Rinfwct94-58-9711SsbrUniversity [facility] ([facility] sources)venlafaxine; Translations: [VENLAFAXINE HCL]Drug Jszyvgk33-79-2675 [facility] (1 source)AllopurinolDrug Gsgcujw69-50-8787FewdqpvroOhiohealth [facility] Rep[facility] Medications Current Medications MedicationDrug Class(es)DatesSig (Normalized)Sig (Original)amLODIPine 10 mg oral tablet (20 sources)Dihydropyridine Calcium Channel BlockerStart: 08-21-2023 End: 61-17-5884xdie 1 tablet by mouth at bedtimeamLODIPine (Norvasc) 10 MG tablet Indications: Essential hypertension Take 1 tablet (10 mg) by mouth at bedtime 05/27/2025 Activeamoxicillin 875 mg / clavulanate 125 mg oral tablet (8 sources)Penicillin-class AntibacterialStart: 07-27-2024 End: 61-19-6362gnvc 1 tablet by mouth in the morningamoxicillin-clavulanate (Augmentin) 875-125 MG tablet Indications: Acute non-recurrent pansinusitisTake 1 tablet (875 mg) by mouth in the morning and 1 tablet (875 mg) before bedtime. Do all this for 7 days. 14 tablet 07/27/2024 08/03/2024 ActiveStart: 04-30-2022 take 1 tablet by mouth every twelve hoursAmoxicillin-Pot Clavulanate 875-125 MG 1 tablet Orally every 12 hrs for 7 days Apr, Activeascorbic acid 500 mg oral capsule (4 sources)Vitamin CStart: 56-36-9085mbhi 1 capsule by mouth every other day Ascorbic Acid (Vitamin C) 500 MG capsule Indications: Iron deficiency anemia, unspecified iron deficiency anemia type Take 500 mg by mouth every other day 05/27/2025 Active{1 (ascorbic acid 7540 MG / polyethylene glycol 3350 69260 MG / potassium chloride 1200 MG / sodiumascorbate 75651 MG / sodium chloride 3200 MG Powder for Oral Solution) / 1 (polyethylene glycol 3350 494076 MG / potassium chloride 1000 MG / sodium chloride 2000 MG / sodium sulfate 9000 MG Powder for Oral Solution) } Pack [Plenvu] (1 source)Osmotic Laxative, Vitamin CStart: 11-82-7422Bjkuyr 140 GM dose 1 pouch at 4pm, dose 2 pouch A & B at 11pm Orally twice a day for 1 days BIN:[id number] PCN: [id number] GROUP:[id number] ID:[id number] February, Activecephalexin 500 mg oral capsule (20 sources)Cephalosporin AntibacterialStart: 03-22-2024 End: 76-39-3424smxu 1 capsule by mouth twice dailyStart: 04-01-2022 End: 69-77-8869qihb 1 capsule by mouth four times dailyCephalexin 500 mg Capsule Discontinued 500 MG PO Four times daily April 01, 2022 12:00am June 05, 2022 9:02amStart: 08-05-2019 End: 42-79-4436zddp 1 capsule by mouth twice dailyCephalexin (Keflex) 500 mg capsule Discontinued 500 MG PO Twice daily 24 August 05, 2019 12:00am May 21, 2020 9:38pmStart: 01-20-2019 End: 78-86-3177kqsu 1 capsule by mouth every eight hoursCephalexin (Keflex) 500 mg capsule Discontinued 500 MG PO Q8H 15 January 20, 2019 12:00am 2018 5:51pmcetirizine hydrochloride 10 mg oral tablet (14 sources)Histamine-1 Receptor AntagonistStart: 26-72-0100pjuu 1 tablet by mouth once daily as neededtake 1 tablet by mouth once daily as neededZyrTEC Allergy 10 MG 1 tablet as needed Orally Once a day ActiveDULoxetine 60 mg delayed release oral capsule (20 sources)Serotonin and Norepinephrine Reuptake InhibitorStart: 01-19-2019 End: 89-11-2298szuz 1 capsule by mouth once daily in the morning End: 78-77-9411GMXruosyiz (Cymbalta) [address] capsule Take 30 mg by mouth in the morning and 30 mg before bedtime.Take with 60 MG tablet. 05/27/2025 Discontinued (Therapy completed)DULoxetine HCl (CYMBALTA PO) Take by mouth 0 Activefamotidine 20 mg oral tablet (4 sources)Histamine-2 Receptor Antagonisttake 1 tablet by mouth once daily famotidine (Pepcid) 20 MG tablet Take 20 mg by mouth Daily Activeferrous sulfate 325 mg oral tablet (20 sources)Start: 49-76-3320ocxm 1 tablet by mouth once dailyStart: 04-01-2022 End: 70-56-6819zncz 1 tablet by mouth every other dayFerrous Sulfate 27 mg iron Tablet Discontinued 27 MG PO Q2D April 01, 2022 12:00am March 1545:30pm Start: 87-98-3104ptus 1 tablet by mouth every other dayferrous sulfate 325 (65 Fe) MG tablet Take 1 tablet by mouth every other day. 07/10/2021 ActiveStart: 08-05-2019 End: 91-32-8311racv 1 tablet by mouth twice dailyFerrous Sulfate 324 mg (65 mg iron) Tablet,Delayed Release (Dr/Ec) Discontinued 324 MG PO Twice daily 60 30 August 05, 2019 12:00am April 01, 2022 7:05amStart: 01-20-2019 End: 63-63-0691hsyy 1 tablet by mouth twice dailyFerrous Sulfate 324 mg (65 mg iron) Tablet,Delayed Release (Dr/Ec) Discontinued 324 MG PO Twice daily 60 January 20, 2019 12:00am August 02, 2019 5:52pmfluconazole 150 mg oral tablet (2 sources)Azole AntifungalStart: 07-27-2024 End: 72-91-1015kkknkzabwhj (Diflucan) 150 MG tablet Indications: Side effect of medication Take 1 tablet (150 mg) by mouth See administration instructions for 1 day Take one tab now. Repeat in 72 hours if symptoms persist. 2 tablet 07/27/2024 07/28/2024 Activefurosemide 20 mg oral tablet (9 sources)Loop Diuretictake 1 tablet by mouth once daily as neededFurosemide 20 MG TAKE 1 TABLET BY MOUTH EVERY DAY for 90 PRN Active3 ml insulin detemir 100 unt/ml pen injector (13 sources)Insulin Analog End: 65-25-5048Zpazxri FlexPen 100 UNIT/ML pen Inject 12 Units under the skin in the morning. 10/01/2024 DiscontinuedIron (9 sources)take 1 tablet by mouth every other dayIron (Ferrous Sulfate) 325 (65 Fe) MG 1 tablet Orally every other day Activemagnesium oxide 400 mg oral tablet (20 sources)Start: 03-31-2024 End: 52-35-2530bjbe 2 tablets by mouth in the morningmagnesium oxide (Mag-Ox) 400 MG tablet TAKE 2 TABLETS BY MOUTH IN THE MORNING AND 2 TABLETS AT BEDTIME 03/31/2024 08/02/2024 Discontinued (Duplicate order)Start: 63-89-5657uiqf 2 tablets by mouth in the morningmagnesium oxide (Mag-Ox) 400 (240 Mg) MG tablet TAKE 2 TABLETS BY MOUTH IN THE MORNING AND 2 TABLETS AT BEDTIME 06/22/2024 Activemethenamine hippurate 1000 mg oral tablet (18 sources) End: 37-62-5980xqdh 1 tablet by mouth twice dailymethenamine hippurate (Hiprex) 1 g tablet TAKE 1 TABLET (1 G) BY MOUTH TWO TIMES DAILY. 04/11/2025 Discontinued (Therapy completed)Multivitamin (Multiple Vitamins) tablet (5 sources)Start: 21-64-9001xzhr 1 tablet by mouth once dailyStart: 03-15-2024 take 1 tablet by mouth once dailyMultivitamin (Multiple Vitamins) tablet Active 1 TAB PO Daily March 14, 2024 11:00pmStart: 12-11-4957mszv 1 tablet by mouth once dailyMultivitamin (Multiple Vitamins) tablet Active 1 TAB PO Daily March 15, 2024 12:00amMultivitamin preparation (9 sources)take 1 tablet by mouth once dailyMulti Vitamin - 1 tablet Orally Once a day ActiveMYCOPHENOLATE (2 sources)Start: 17-61-2486cffw 180 mg by mouth once dailyMycophenolate Sodium Active 180 MG PO Daily March 15, 2024 12:00amMycophenolate Sodium 180 mg tablet,delayed release (DR/EC) (2 sources)Start: 72-56-0274saml 1 tablet by mouth once dailyMycophenolate Sodium 180 mg tablet,delayed release (DR/EC) Active 180 MG PO Daily March 14, 2024 11:00pmmycophenolic acid 180 mg delayed release oral tablet (20 sources)Antimetabolite ImmunosuppressantStart: 15-86-2185ezjk 1 tablet by mouth once dailytake 4 tablets by mouth in the morningmycophenolate (Myfortic) 180 MG EC tablet Take 4 tablets by mouth in the morning and 4 tablets before bedtime. Activemicroencapsulated potassium chloride 20 meq extended release oral tablet (20 sources)Start: 74-78-5722Qxrbwhdao Chloride (Klor-Con M20) 20 mEq tablet,ER particles/crystals (4 sources)Start: 97-08-0648Oxljzgalj Chloride (Klor-Con M20) 20 mEq tablet,ER particles/crystals Active 20 MEQ PO Daily March 14, 2024 11:00pmStart: 89-02-5698Nanympnwg Chloride (Klor-Con M20) 20 mEq tablet,ER particles/crystals Active 20 MEQ PO Daily March 15, 2024 12:00ampravastatin sodium 40 mg oral tablet (20 sources)HMG-CoA Reductase InhibitorStart: 72-90-7147dnwc 1 tablet by mouth once dailySemaglutide (1 source)Start: 83-69-4468Sdnkbmdesls (Ozempic) 2 mg/dose (8 mg/3 mL) pen injector (4 sources)Start: 28-94-9820Bujcjgevjtl (Ozempic) 2 mg/dose (8 mg/3 mL) pen injector Active MG SUBCUT March 14, 2024 11:00pmStart: 06-55-5942Lveungwjnnh (Ozempic) 2 mg/dose (8 mg/3 mL) pen injector Active MG SUBCUT March 15, 2024 12:00amsemaglutide (Ozempic) 4 MG/3ML solution pen-injector (2 sources)Start: 48-34-9746eurzdp 1 mg by subcutaneous injection every week semaglutide (Ozempic) 4 MG/3ML solution pen-injector Indications: Type 2 diabetes mellitus with other specified complication, without long-term current use of insulin ([facility]) Inject 1 mg under the skin 1 (one) time per week 3 mL 03/23/2024 ActiveSemaglutide, 2 MG/DOSE, (Ozempic, 2 MG/DOSE,) 8 MG/3ML solution pen-injector (10 sources)Start: 98-91-8983hqpxoc 2 mg by subcutaneous injection every week Semaglutide, 2 MG/DOSE, (Ozempic, 2 MG/DOSE,) 8 MG/3ML solution pen-injector Indications: Type 2 diabetes mellitus with stage 3a chronic kidney disease, without long-term current use of insulin ([facility])Inject 2 mg under the skin 1 (one) time per week 12 mL 1 01/03/2025 ActiveStart: 10-57-2072nbsaph 2 mg by subcutaneous injection every weekSemaglutide, 2 MG/DOSE, (Ozempic, 2 MG/DOSE,) 8 MG/3ML solution pen-injector Indications: Type 2 diabetes mellitus with stage 3a chronic kidney disease, without long-term current use of insulin (HCC) ([facility]) Inject 2 mg under the skin 1 (one) time per week 12 mL 1 01/03/2025 Active3 ml sodium chloride 9 mg/ml injection (4 sources)Start: 88-08-8858rbzamm chloride flush 0.9 % injection 10 mLStart: 80-88-8192ylwuos chloride flush 0.9 % injection 10 mLStart: 08-02-2019 End: 08-02-20190.9 % sodium chloride bolussulfamethoxazole 800 mg / trimethoprim 160 mg oral tablet (5 sources)Dihydrofolate Reductase Inhibitor Antibacterial, Sulfonamide AntimicrobialStart: 56-89-4757embi 1 tablet by mouth twice daily24 hr tacrolimus 0.75 mg extended release oral tablet (20 sources)Calcineurin Inhibitor ImmunosuppressantStart: 72-59-3587Txsjgaoz XR 0.75 MG tablet ER 09/06/2024 ActiveStart: 03-15-2024 End: 04-11-2025 Completed/Discontinued Medications MedicationDrug Class(es)DatesSig (Normalized)Sig (Original)acetaminophen 500 mg oral tablet (11 sources)Start: 08-02-2019 End: 19-06-8743zoxkyakgviyye (TYLENOL) tablet 1,000 mgStart: 31-67-6044osng 2 tablets by mouth once daily as needed for paincalcitriol 0.19679 mg oral capsule (10 sources)Vitamin D3 AnalogStart: 01-20-2019 End: 21-36-9904Ftkeuwwdmf (Rocaltrol) 0.25 mcg Capsule Discontinued 0.25 MCG PO MoWeFr@0900 January 20, 2019 12:00am August 02, 2019 5:53pmcalcium carbonate 500 mg chewable tablet (10 sources)Start: 01-19-2019 End: 77-33-4310kxhq 1 tablet by mouth four times daily as needed for gastroesophageal reflux diseaseCalcium Carbonate (Tums) 200 mg calcium (500 mg) Tablet,Chewable Discontinued 200 MG PO Four times daily as needed for Heartburn January 19, 2019 12:00am August 02, 2019 5:51pmcefTRIAXone (ROCEPHIN) 1 g in sterile water 10 mL IV syringe (1 source)Start: 08-02-2019 End: 53-26-1586oevXGQHSlrs (ROCEPHIN) 1 g in sterile water 10 mL IV syringe ciprofloxacin 250 mg oral tablet (13 sources)Quinolone AntimicrobialStart: 11-05-2024 End: 94-23-5048arar 1 tablet by mouth in the morningciprofloxacin (Cipro) 250 MG tablet Take 250 mg by mouth in the morning and 250 mg before bedtime. 0 11/05/2024 01/03/2025 Discontinued (Therapy completed)Start: 05-15-2020 End: 49-78-7715fymr 1 tablet by mouth every twelve hoursCiprofloxacin Hcl (Cipro) 250 mg tablet Discontinued 250 MG PO Q12H 6 3 May 15, 2020 12:00am April 01, 2022 7:03amergocalciferol 1.25 mg oral capsule (10 sources)Provitamin D2 CompoundStart: 01-20-2019 End: 19-68-2221pbcv 1 capsule by mouth every monthErgocalciferol (Vitamin D2) 50,000 unit capsule Discontinued 39547 UNIT PO every month January 20, 2019 12:00am August 02, 2019 5:53pmfebuxostat 40 mg oral tablet (19 sources)Xanthine Oxidase InhibitorStart: 08-02-2019 End: 72-72-9468Twxpkclkae (Uloric) 40 mg Tablet Discontinued 20 MG PO Every morning August 02, 2019 12:00am March 15, 2024 5:37pmtake 0.5 tablet by mouth once dailyUloric 40 MG 1/2 tablet Orally Once a day Active hydroCHLOROthiazide 12.5 mg / lisinopril 20 mg oral tablet (10 sources)Thiazide Diuretic, Angiotensin Converting Enzyme InhibitorStart: 01-19-2019 End: 43-60-3682utct 1 tablet by mouth once dailyLisinopril-Hydrochlorothiazide 20-12.5 mg tablet Discontinued 1 TAB PO Daily January 19, 2019 12:00am August 05, 2019 4:31pmIopamidol (1 source)Radiographic Contrast AgentStart: 08-02-2019 End: 19-63-5126vkhrtzuyx (ISOVUE-370) 76 % injection 100 mLlisinopril 20 mg oral tablet (20 sources)Angiotensin Converting Enzyme InhibitorStart: 08-05-2019 End: 27-49-9395dnlw 1 tablet by mouth once daily in the morningLisinopril 20 mg tablet Discontinued 20 MG PO Every morning June 05, 2022 9:09am March 15, 2024 5:37pmLISINOPRIL PO Take by mouth 0 Activesemaglutide (Ozempic, 1 MG/DOSE,) 4 MG/3ML solution pen-injector (20 sources)Start: 11-01-2024 End: 83-73-4885nzmsyx 1 mg by subcutaneous injection every weeksemaglutide (Ozempic, 1 MG/DOSE,) 4 MG/3ML solution pen-injector Indications: Type 2 diabetes mellitus with other specified complication, without long-term current use of insulin (HCC) INJECT 1 MG UNDER THE SKIN 1 (ONE) TIME PER WEEK 9 mL 3 11/01/2024 05/27/2025 Discontinued (Therapy completed)Start: 95-59-0200ddulww 1 mg by subcutaneous injection every weeksemaglutide (Ozempic, 1 MG/DOSE,) 4 MG/3ML solution pen-injector Indications: Type 2 diabetes mellitus with other specified complication, without long-term current use of insulin (HCC) INJECT 1 MG UNDER THE SKIN 1 (ONE) TIME PER WEEK 9 mL 3 11/01/2024 ActiveStart: 34-37-2018mrtxpx 1 mg by subcutaneous injection every weeksemaglutide (Ozempic, 1 MG/DOSE,) 4 MG/3ML solution pen-injector Indications: Type 2 diabetes mellitus with other specified complication, without long-term current use of insulin INJECT 1 MG UNDER THE SKIN 1 (ONE) TIME PER WEEK 9 mL 3 11/01/2024 ActiveStart: 92-62-6688yatuzs 1 mg by subcutaneous injection every weeksemaglutide (Ozempic, 1 MG/DOSE,) 4 MG/3ML solution pen-injector Indications: Type 2 diabetes mellitus with other specified complication, without long-term current use of insulin (CMS/HCC) INJECT 1 MG UNDER THE SKIN 1 (ONE) TIME PER WEEK 9 mL 3 11/01/2024 ActiveStart: 23-87-3914vtpjmw 1 mg by subcutaneous injection every week semaglutide (Ozempic, 1 MG/DOSE,) 4 MG/3ML solution pen-injector Indications: Type 2 diabetes mellitus with other specified complication, without long-term current use of insulin (CMS/HCC) INJECT 1 MG UNDER THE SKIN 1 (ONE) TIME PER WEEK 3 mL 3 06/29/2024 Activesodium bicarbonate 650 mg oral tablet (19 sources)Start: 04-01-2022 End: 64-28-6880cneu 1 tablet by mouth twice dailySodium Bicarbonate 650 mg Tablet Discontinued 650 MG PO Twice daily April 01, 2022 12:00am March 15, 2024 5:37pmtiZANidine 4 mg oral tablet (20 sources)Central alpha-2 Adrenergic AgonistStart: 08-31-2024 End: 32-90-9205kemf 1 tablet by mouth at bedtimetiZANidine (Zanaflex) 4 MG tablet Take 4 mg by mouth at bedtime 08/31/2024 05/27/2025 Discontinued (Therapy completed) End: 26-00-2939lqDQDhgqjk HCl (ZANAFLEX PO) Take by mouth 09/14/2024 DiscontinuedtiZANidine HCl (ZANAFLEX PO) Take by mouth Active Problems Active Problems Problem ClassificationProblemDateDocumented DateEpisodic/ChronicAbdominal pain (3 sources)Generalized abdominal pain; Translations: [Generalized abdominal pain]Onset: 983951-47-0742XtfgruppZpbem and chronic tonsillitis (20 sources)Amygdalolith; Translations: [Other chronic diseases of tonsils and adenoids]Onset: 971690-87-3740BcamgutYsjdh and unspecified renal failure (1 source)Chronic renal failure; Translations: [Chronic renal failure, stage 4 (severe) ([facility])]ChronicAcute and unspecified renal failure (10 sources)Injury of kidney; Translations: [Acute kidney failure, unspecified] 87-07-1763IglzdjtiOfuxkef disorders (20 sources)Anxiety; Translations: [Anxiety disorder, unspecified]Onset: 620159-66-7299YxfdzkxYmqxjla kidney disease (20 sources)Chronic kidney disease stage 4; Translations: [Chronic kidney disease, stage 4 (severe)]Onset: 12-05-2021 Resolved: 42-59-0582MvhgwcgShkrzzcprnpup of surgical procedures or medical care (2 sources)Drug therapy finding; Translations: [Unspecified adverse effect of drug or medicament, initial encounter]52-15-0403ZnnglcnnGhgjmrlxpz and other anemia (20 sources)Anemia of renal disease; Translations: [Anemia in chronic kidney disease]Onset: 382651-64-6879QzyfdfgAfhcuuzuvt and other anemia (8 sources)Anemia in chronic kidney disease; Translations: [ANEMIA IN CHRONIC KIDNEY DISEASE]Onset: 09-01-2021 Resolved: 03-64-4478IbmpyyrFicsygbv mellitus with complications (20 sources)Chronic kidney disease due to type 2 diabetes mellitus; Translations: [Type 2 diabetes mellitus with diabetic chronic kidney disease] Onset: 005623-13-8094QnlsgnxOyfwdzhfv of lipid metabolism (20 sources)Dyslipidemia; Translations: [Hyperlipidemia, unspecified]Onset: 797292-87-6792SdephxwXxbsgfisrr disorders (20 sources)Gastroesophageal reflux disease; Translations: [Gastro-esophageal reflux disease without esophagitis]Onset: 111265-46-7253HnxbfycKyoajsoyi hypertension (20 sources)Benign essential hypertension; Translations: [Essential (primary) hypertension]Onset: 03-04-2023 Resolved: 370862-25-4022SaqvuhwBwyzx of unknown origin (10 sources)Fever; Translations: [Fever, unspecified]17-35-9351JqpkuiuaQmroe and electrolyte disorders (5 sources)Acidosis; Translations: [Hypokalemia]Onset: 12-06-2021 Resolved: 63-94-9855SogmieeoDpdsaulatulag congenital anomalies (20 sources)Polycystic kidney disease, adult type; Translations: [Polycystic kidney, adult type]Onset: 03-30-2021 Resolved: 23-02-3918TzyvbnvOmpdfgbbipzqq congenital anomalies (1 source)Multiple renal cysts; Translations: [Polycystic kidney disease] EpisodicGenitourinary symptoms and ill-defined conditions (11 sources)Dysuria; Translations: [Dysuria]89-80-3056FurvbucnSywqxyxvtlgs with complications and secondary hypertension (20 sources)Chronic kidney disease due to hypertension; Translations: [Hypertensive chronic kidney disease withstage 1 through stage 4 chronic kidney disease, or unspecified chronic kidney disease]Onset: 09-08-2021 Resolved: 07-72-8516DmsbecdLyvcgpza disorders (2 sources)Immunosuppression; Translations: [Immunodeficiency, unspecified] 86-77-7390WzbihrwUlqsyoxesrtyk and screening for infectious disease (2 sources)Needs influenza immunization; Translations: [Encounter for immunization]15-14-6058QotushdvIxyovpyxchhm hypoxia and asphyxia (1 source)Metabolic acidemia, unspecifiedEpisodicMalaise and fatigue (2 sources)Fatigue; Translations: [Chronic fatigue, unspecified]04-11-2025 ChronicMood disorders (4 sources)Moderate major depression ; Translations: [Major depressive disorder, single episode, moderate]Onset: 509018-12-7140NjkakijEbrijdcnjca deficiencies (10 sources)Vitamin D deficiency; Translations: [Vitamin D deficiency, unspecified]40-90-0863LurfrykCpurtoklnledfw (4 sources)Degenerative joint disease involving multiple joints; Translations: [Primary generalized (osteo)arthritis]Onset: 149336-95-1286ZtcdiytYesps circulatory disease (7 sources)Acquired arteriovenous fistula aneurysm; Translations: [Arteriovenous fistula, acquired]ChronicOther circulatory disease (1 source)Ecchymosis; Translations: [Hemorrhage, not elsewhere classified] 80-97-4779YrkuzvhyTbgse circulatory disease (6 sources)Hemorrhage, not elsewhere classified; Translations: [Postoperative ecchymosis]18-90-4294AfoodtxqAmlsq connective tissue disease (7 sources)Pain in left arm; Translations: [Pain in left arm]74-69-6190Nozlugac Other connective tissue disease (4 sources)H/O: gout; Translations: [Personal history of other diseases of the musculoskeletal system and connective tissue]Onset: 958874-92-4862Lyxfghjl Other diseases of kidney and ureters (20 sources)Secondary hyperparathyroidism; Translations: [Secondary hyperparathyroidism of renal origin]Onset: 427542-54-6480UbrdxjrVstba diseases of kidney and ureters (4 sources)Secondary hyperparathyroidism of renal origin; Translations: [SEC HYPERPARATHYROIDISM RENAL ORIGN]Onset: 12-06-2021 Resolved: 15-16-7657CguhjybQwywc female genital disorders (1 source)Pain in female genitalia on intercourse; Translations: [Unspecified dyspareunia]73-98-4066TmndppeYshbw inflammatory condition of skin (10 sources)Pruritus of skin; Translations: [Pruritus, unspecified]08-04-2019 EpisodicOther non-traumatic joint disorders (20 sources)Polyarthropathy; Translations: [Polyarthritis, unspecified]Onset: 995736-35-8592ZayqthyBdflh nutritional; endocrine; and metabolic disorders (5 sources)Obesity caused by energy imbalance; Translations: [Class 1 obesity due to excess calories with serious comorbidity and body mass index (BMI) of 34.0 to 34.9 in adult]Onset: 240094-77-7474DhahrfyWxgsy upper respiratory infections (2 sources)Acute pansinusitis; Translations: [Acute pansinusitis, unspecified] 69-51-9941FpdwmwrsTjftcon cyst (6 sources)Unspecified ovarian cyst, left side; Translations: [Cyst of left ovary]Onset: 62-71-6508WsstsdxcOzezsmwpnw (except in labor) (11 sources)Sepsis; Translations: [Sepsis due to urinary tract infection] 43-54-9238VyuxelnaTtbwqdx tract infections (20 sources)Acute cystitis; Translations: [Urinary tract infectious disease] 09-99-5463Gvxfbwav Past or Other Problems Problem ClassificationProblemDateDocumented DateEpisodic/ChronicAcute myocardial infarction (20 sources)Myocardial infarction; Translations: [Non-ST elevation (NSTEMI) myocardial infarction]Onset: 04-16-2024 Resolved: 879788-08-3965ErrkjcoOsbsijttyn and other anemia (20 sources)Iron deficiency anemia; Translations: [Iron deficiency anemia, unspecified]Onset: 466775-97-6367VifjbquuErdxbabj mellitus without complication (20 sources)Impaired fasting glycemia; Translations: [Impaired fasting glucose] Onset: 03-04-2023 Resolved: [id number] and other crystal arthropathies (20 sources)Gout; Translations: [Gout, unspecified]Onset: 12-06-2021 Resolved: 97-26-2450UzimtrrXkpqf aftercare (20 sources)Transplant follow-up; Translations: [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]Onset: [id number] connective tissue disease (20 sources)Fibromyalgia; Translations: [Fibromyalgia]Onset: 03-04-2023 03-46-4458NakuqiamCpmzy hematologic conditions (1 source)Elevated erythrocyte sedimentation rate; Translations: [Elevated erythrocyte sedimentation rate]Onset: 29-20-7864WmrwecdlMuhwb nutritional; endocrine; and metabolic disorders (20 sources)Hyperuricemia; Translations: [Hyperuricemia without signs of inflammatory arthritis and tophaceous disease]Onset: 03-04-2023 Resolved: [id number] screening for suspected conditions (not mental disorders or infectious disease) (4 sources)Encounter for screening for malignant neoplasm of colon; Translations: [Decreased vitamin D]Onset: 02-26-2022 Resolved: 03-96-7855AqbolkewAzwqrr media and related conditions (1 source)Otitis media, unspecified, bilateralOnset: 04-30-2022 Resolved: 84-91-6723ArnyhmhtDugdpkyz codes; unclassified (20 sources)Obstructive sleep apnea syndrome; Translations: [Obstructive sleep apnea (adult) (pediatric)]Onset: 03-04-2023 Resolved: [id number] Results Test NameValueInterpretationReference RangeFacilityALL CBC WITH AUTO DIFFon [id number] ABSOLUTE AUTO0.1NOMS HealthcareBasophils/100 WBC (Bld)0.6 % 0.2 - 2.0 %NOMS HealthcareEosinophils/100 WBC (Bld)3.6 %0.9 - 7.0 %NOMMercy Hospital JoplinErythrocyte distribution width (RBC) [Ratio]13.8 %11.0 - 15.0 %NOMS [facility] HospitalHematocrit (Bld) [Volume fraction]39.4 %36.0 - 48.0 %[facility] Hemoglobin (Bld) [Mass/Vol]13.3 g/dL12.0 - 16.0 g/dLSSM Saint Mary's Health CenterIMMATURE GRANULOCYTES ABS AUTO0.04HighNOThe Rehabilitation InstituteImmature granulocytes/100 WBC (Bld) 0.5 %0.0 - 0.5 %[facility] CenterInterpretation and review of laboratory results AbnormalNOThe Rehabilitation InstituteLYMPHOCYTES ABSOLUTE AUTO1.5NOMS [facility] Lymphocytes/100 WBC (Bld)19.9 %Low20.5 - 60.0 %[facility] HospitalH (RBC) [Entitic mass]29 pg26.7 - 34.0 pgSouthPointe HospitalHC (RBC) [Mass/Vol]33.8 g/dL29.9 - 35.2 g/dLSouthPointe HospitalV (RBC) [Entitic vol]85.8 fL81.0 - 99.0 fLSSM Saint Mary's Health CenterMONOCYTES ABSOLUTE AUTO0.4NONY HealthcareMonocytes/100 WBC (Bld)5.4 % 1.7 - 12.0 %[facility] CenterNEUTROPHILS ABSOLUTE AUTO5.4NOThe Rehabilitation Institute Neutrophils/100 WBC (Bld)70 %43.0 - 75.0 %[facility] CenterPlatelet mean volume (Bld) [Entitic vol]9 fLLow9.5 - 13.5 fLSSM Saint Mary's Health CenterTB EO #0.3NOMS [facility] DHI903BLYEUniversity Hospital RBC4.59NOMS [facility] WBC7.7NOThe Rehabilitation Institute [facility] HealthcareFollow-Upon 71-20-0488Rrsuhh-[id number] Mandeep Puri 1975 F Date Provider Department [place] 06/01/2025 [id number] BATRES TXP None Family History Problem Relation Age of Onset Fibromyalgia Mother Heart disease Father Hypertension Sister Polycystic kidney disease Sister Hypertension Brother Polycystic kidney disease Brother Family Status - Relation Status Age at Mother Alive Father Sister Brother Level of Service:45629 DC OFFICE/OUTPATIENT ESTABLISHED MOD MDM 30 MIN Reason for Visit and Comments: Kidney Follow-up [] - Pt has been having pains where her old kidney is. Her abd is also swollen since April. She also has concerns about her Tac level being in the low 5's.[facility]ALL CBC WITH AUTO DIFFon 87-91-4378QJOTCTDVM ABSOLUTE AUTO0.1[facility] Healthcare Basophils/100 WBC (Bld)0.8 %0.2 - 2.0 %NOMS HealthcareEosinophils/100 WBC (Bld) 4.7 %0.9 - 7.0 %NOMS HealthcareErythrocyte distribution width (RBC) [Ratio]14.1 %11.0 - 15.0 %NOMS HealthcareHematocrit (Bld) [Volume fraction]40 %36.0 - 48.0 % NOMS HealthcareHemoglobin (Bld) [Mass/Vol]13.8 g/dL12.0 - 16.0 g/dLNONY HealthcareIMMATURE GRANULOCYTES ABS AUTO0.06HighNONY HealthcareImmature granulocytes/100 WBC (Bld)0.7 %High0.0 - 0.5 %NOMS HealthcareInterpretation and review of laboratory resultsAbnormalNONY HealthcareLYMPHOCYTES ABSOLUTE AUTO1.8 NOMS HealthcareLymphocytes/100 WBC (Bld)21.5 %20.5 - 60.0 %NOMS [facility]H (RBC) [Entitic mass]29.7 pg26.7 - 34.0 pgNOHawthorn Children's Psychiatric HospitalHC (RBC) [Mass/Vol] 34.5 g/dL29.9 - 35.2 g/dLNOThe Rehabilitation InstituteMCV (RBC) [Entitic vol]86 fL81.0 - 99.0 fLNONY HealthcareMONOCYTES ABSOLUTE AUTO0.5NOMS HealthcareMonocytes/100 WBC (Bld)5.9 %1.7 - 12.0 %NOMS HealthcareNEUTROPHILS ABSOLUTE AUTO5.6N[facility] Healthcare Neutrophils/100 WBC (Bld)66.4 %43.0 - 75.0 %[facility] HealthcarePlatelet mean volume (Bld) [Entitic vol]8.4 fLLow9.5 - 13.5 fLNOThe Rehabilitation InstituteTBH EO #0.4NOMS [facility] HospitalTBH [id number] [facility] HospitalTB RBC4.65NOMS [facility] HospitalTB WBC8.4NONY HealthcareCLINISYNCNOMS HealthcareALL MAGNESIUMon 43-15-8076Tywmpsxgg [Mass/Vol] 1.5 mg/dLLow1.8 - 2.4 mg/dLNONY HealthcareALL PHOSPHOROUSon 84-93-7790Flmrkxbcf [Mass/Vol]3.7 mg/dL2.6 - 4.7 mg/dLNONY HealthcareALL URIC ACIDon 81-55-8672Ywbgc [Mass/Vol]4 mg/dL2.6 - 6.0 mg/dLSSM Saint Mary's Health CenterCCF CMP (CMP) (FOR REMOTE C USE)on 41-88-8655Qosdanr [Mass/Vol]3.8 g/dL3.4 - 5.0 g/dLNOThe Rehabilitation InstituteALBUMIN GLOBULIN RATIO0.9NONY HealthcareALP [Catalytic activity/Vol]88 U/L46 - 116 U/L [facility] HealthcareALT [Catalytic activity/Vol]24 U/L14 - 59 U/LNOMS HealthcareAnion gap [Moles/Vol]12.1 mmol/LNOMS HealthcareAST [Catalytic activity/Vol]19 U/L15 - 37 U/LNOMS HealthcareBilirubin [Mass/Vol]0.4 mg/dL0.2 - 1.0 mg/dLNOThe Rehabilitation Institute Calcium [Mass/Vol]9.3 mg/dL8.5 - 10.1 mg/dLNONY HealthcareChloride [Moles/Vol] 104 mmol/L98 - 107 mmol/LNOMS HealthcareCO2 [Moles/Vol]27.1 mmol/L21.0 - 32.0 mmol/LNOMS HealthcareCreatinine [Mass/Vol]1.17 mg/dLHigh0.55 - 1.02 mg/dLNONY HealthcareGFR/1.73 sq M.predicted CKD-EPI (S/P/Bld) [Vol rate/Area]60>=60 mL/min/1.73m 2NOMS HealthcareGlobulin (S) [Mass/Vol]4 g/dLNONY HealthcareGlucose [Mass/Vol]91 mg/dL74 - 106 mg/dLNONY HealthcarePotassium [Moles/Vol]3.2 mmol/L Low3.5 - 5.1 mmol/LNOMS HealthcareProtein [Mass/Vol]7.8 g/dL6.4 - 8.2 g/dLNONY HealthcareSodium [Moles/Vol]140 mmol/L136 - 145 mmol/LNOMS HealthcareTBH EGFR- NON AF MDHBIAIC17Uos>=60 mL/min/1.73m 2NOMS HealthcareUrea nitrogen [Mass/Vol]14 mg/dL7.0 - 18.0 mg/dLNONY HealthcareUrea nitrogen/Creatinine [Mass ratio]12 mg/mgNOThe Rehabilitation InstituteMETRO BILIRUBIN, DIRECTon 80-54-6026Iduadtajg.indirect [Mass/Vol]0.1 mg/dL0.0 - 0.2 mg/dLSSM Saint [facility]'s Health CenterNo Panel Informationon 15-22-1584Yhbaurktscpxpb and review of laboratory resultsAbnormalSS[facility] CLINISYNCNOThe Rehabilitation InstituteALL CBC WITH AUTO DIFFon 80-83-1559WFUDTJQHQ ABSOLUTE DYOL5CDRE HealthcareBasophils/100 WBC (Bld)0.5 %0.2 - 2.0 %NOM Healthcare Eosinophils/100 WBC (Bld)3.8 %0.9 - 7.0 %[facility] CenterErythrocyte distribution width (RBC) [Ratio]13.9 %11.0 - 15.0 %NOMMercy Hospital JoplinHematocrit (Bld) [Volume fraction]39.4 %36.0 - 48.0 %NOMMercy Hospital JoplinHemoglobin (Bld) [Mass/Vol]13.4 g/dL 12.0 - 16.0 g/dLSSM Saint Mary's Health CenterIMMATURE GRANULOCYTES ABS AUTO0.03NOThe Rehabilitation Institute Immature granulocytes/100 WBC (Bld)0.4 %0.0 - 0.5 %[facility] HealthcareInterpretation and review of laboratory resultsAbBaraga County Memorial HospitalLYMPHOCYTES ABSOLUTE AUTO1.5NOMS [facility] HospitalLymphocytes/100 WBC (Bld)18.3 %Low20.5 - 60.0 %[facility] (RBC) [Entitic mass]29.4 pg26.7 - 34.0 pgNOHawthorn Children's Psychiatric HospitalHC (RBC) [Mass/Vol]34 g/dL29.9 - 35.2 g/dLSouthPointe HospitalV (RBC) [Entitic vol]86.4 fL 81.0 - 99.0 fLNOThe Rehabilitation InstituteMONOCYTES ABSOLUTE AUTO0.4NOThe [facility] Institute Monocytes/100 WBC (Bld)5.2 %1.7 - 12.0 %[facility] CenterNEUTROPHILS ABSOLUTE AUTO 5.9NOMS [facility] HospitalNeutrophils/100 WBC (Bld)71.8 %43.0 - 75.0 %[facility] Platelet mean volume (Bld) [Entitic vol]8.6 fLLow9.5 - 13.5 fLNOThe Rehabilitation InstituteTBH EO #0.3NOMS [facility] HospitalTB [id number] Hospital RBC4.56NOUniversity Hospital WBC 8.1NOMS HealthcareCLINISYNCNVETERANS AFF[facility] [place] [facility] [place] HealthcareALL MAGNESIUMon 56-45-2669Rkgmpxecf [Mass/Vol]1.8 mg/dL1.8 - 2.4 mg/dLNOThe Rehabilitation InstituteALL PHOSPHOROUSon 04-02-2025 Phosphate [Mass/Vol]3.5 mg/dL2.6 - 4.7 mg/dLSSM Saint Mary's Health CenterALL URIC ACIDon 51-04-3973Mjpee [Mass/Vol]5 mg/dL2.6 - 6.0 mg/dLSSM Saint Mary's Health CenterCCF CMP (CMP) (FOR REMOTE [facility] USE)on 17-70-7771Xrkwrua [Mass/Vol]3.8 g/dL3.4 - 5.0 g/dLNOThe Rehabilitation InstituteALBUMIN GLOBULIN [id number] HealthcareALP [Catalytic activity/Vol]90 U/L46 - 116 U/LNOMS HealthcareALT [Catalytic activity/Vol]22 U/L14 - 59 U/LNOMS HealthcareAnion gap [Moles/Vol]15.7 mmol/LNOMS HealthcareAST [Catalytic activity/Vol]16 U/L15 - 37 U/LNOMS HealthcareBilirubin [Mass/Vol]0.4 mg/dL0.2 - 1.0 mg/dLNONY HealthcareCalcium [Mass/Vol]9.3 mg/dL8.5 - 10.1 mg/dLNONY HealthcareChloride [Moles/Vol]105 mmol/L98 - 107 mmol/LNOMS HealthcareCO2 [Moles/Vol]24.5 mmol/L21.0 - 32.0 mmol/LNOMS HealthcareCreatinine [Mass/Vol]1.18 mg/dLHigh0.55 - 1.02 mg/dLNONY HealthcareGFR/1.73 sq M.predicted CKD-EPI (S/P/Bld) [Vol rate/Area]59Low>=60 mL/min/1.73m 2NOMS HealthcareGlobulin (S) [Mass/Vol]3.9 g/dLNONY HealthcareGlucose [Mass/Vol]114 mg/tVEvei35 - 106 mg/dL [facility] HealthcareInterpretation and review of laboratory resultsAbnormalNONY HealthcarePotassium [Moles/Vol]3.2 mmol/LLow3.5 - 5.1 mmol/LNOMS Healthcare Protein [Mass/Vol]7.7 g/dL6.4 - 8.2 g/dLNONY HealthcareSodium [Moles/Vol]142 mmol/L136 - 145 mmol/LNOMS HealthcareTBH EGFR-NON AF KZWWQEOQ12Ity>=60 mL/min/1.73m 2NOMS HealthcareUrea nitrogen [Mass/Vol]14 mg/dL7.0 - 18.0 mg/dL NOMS HealthcareUrea nitrogen/Creatinine [Mass ratio]11.9 mg/mgNOThe Rehabilitation Institute METRO BILIRUBIN, DIRECTon 42-60-6399Zmnibbmdo.indirect [Mass/Vol]0.1 mg/dL0.0 - 0.2 mg/dLNOThe Rehabilitation InstituteNo Panel Informationon 49-44-2089PXRJQDNCBXTKH HealthcareALL CBC WITH AUTO DIFFon 73-59-8612DZLABZJSQ ABSOLUTE AUTO0.1NOMS HealthcareBasophils/100 WBC (Bld)0.8 %0.2 - 2.0 %NOMS HealthcareEosinophils/100 WBC (Bld)4.3 %0.9 - 7.0 %NOM HealthcareErythrocyte distribution width (RBC) [Ratio]14.6 %11.0 - 15.0 %NOMS HealthcareHematocrit (Bld) [Volume fraction]39.6 %36.0 - 48.0 %NOM HealthcareHemoglobin (Bld) [Mass/Vol]13.2 g/dL12.0 - 16.0 g/dLNOMS HealthcareIMMATURE GRANULOCYTES ABS AUTO0.03NOMS HealthcareImmature granulocytes/100 WBC (Bld)0.4 %0.0 - 0.5 %NOMS HealthcareInterpretation and review of laboratory resultsAbnormalNOMS HealthcareLYMPHOCYTES ABSOLUTE AUTO1.5 NOMS HealthcareLymphocytes/100 WBC (Bld)20.1 %Low20.5 - 60.0 %NOMS [facility] HospitalH (RBC) [Entitic mass]28.9 pg26.7 - 34.0 pgNOHawthorn Children's Psychiatric HospitalHC (RBC) [Mass/Vol] 33.3 g/dL29.9 - 35.2 g/dLNOHawthorn Children's Psychiatric HospitalV (RBC) [Entitic vol]86.8 fL81.0 - 99.0 fLNONY HealthcareMONOCYTES ABSOLUTE AUTO0.4NOMS HealthcareMonocytes/100 WBC (Bld)5.4 %1.7 - 12.0 %NOMS HealthcareNEUTROPHILS ABSOLUTE AUTO5.2N[facility]S Healthcare Neutrophils/100 WBC (Bld)69 %43.0 - 75.0 %NOMS HealthcarePlatelet mean volume (Bld) [Entitic vol]8.5 fLLow9.5 - 13.5 fLNOMS HealthcareTBH EO #0.3NOMS HealthcareTBH [id number] HealthcareTBH RBC4.56NOMS HealthcareTBH WBC7.5NOMS HealthcareCLINISYNCNOMS HealthcareOrders Onlyon 20-88-1115Kwuxqn [id number] KhushiMandeep 1975 F Date Provider Department Center 02/02/2025 [id number] LOMAX None Family History Problem Relation Age of Onset Fibromyalgia Mother Heart disease Father Hypertension Sister Polycystic kidney disease Sister Hypertension Brother Polycystic kidney disease Brother Family Status - Relation Status Age at Mother Alive Father Sister BrotherNormalUniversity of Texas Health Presbyterian [facility] [id number] called into the office requesting a refill [...] up to be sent over upon your approval.NormalUniversity of Anthony Medical CenterRefillon [id number] KhushiAntonio doughertyi 1975 F Date Provider Department Center 01/31/2025 ANDERSON GOODWIN None Family History Problem Relation Age of Onset Fibromyalgia Mother Heart disease Father Hypertension Sister Polycystic kidney disease Sister Hypertension Brother Polycystic kidney disease Brother Family Status - Relation Status Age at Mother Alive Father Sister Brother Reason for Visit and Comments: Med Refill [123050] Med Management [[id number]][facility]ALL CBC WITH AUTO DIFFon 23-87-5921FWMXNUCRX ABSOLUTE AUTO0.1NOMS HealthcareBasophils/100 WBC (Bld)0.7 %0.2 - 2.0 %NOMS HealthcareEosinophils/100 WBC (Bld)2.7 %0.9 - 7.0 %NOMS HealthcareErythrocyte distribution width (RBC) [Ratio]14.5 %11.0 - 15.0 % NOMS HealthcareHematocrit (Bld) [Volume fraction]41.9 %36.0 - 48.0 %NOM HealthcareHemoglobin (Bld) [Mass/Vol]13.9 g/dL12.0 - 16.0 g/dLSS[facility] IMMATURE GRANULOCYTES ABS AUTO0.03NOThe Rehabilitation InstituteImmature granulocytes/100 WBC (Bld)0.4 %0.0 - 0.5 %[facility] CenterInterpretation and review of laboratory resultsAbnormalNOThe Rehabilitation InstituteLYMPHOCYTES ABSOLUTE AUTO1.6NOMS Healthcare Lymphocytes/100 WBC (Bld)19.1 %Low20.5 - 60.0 %[facility] HospitalH (RBC) [Entitic mass]28.7 pg26.7 - 34.0 pgNOHawthorn Children's Psychiatric HospitalHC (RBC) [Mass/Vol]33.2 g/dL29.9 - 35.2 g/dLSouthPointe HospitalV (RBC) [Entitic vol]86.4 fL81.0 - 99.0 fLNOThe Rehabilitation InstituteMONOCYTES ABSOLUTE AUTO0.6NOMS HealthcareMonocytes/100 WBC (Bld)6.4 % 1.7 - 12.0 %NOMS HealthcareNEUTROPHILS ABSOLUTE ZBPH1HXEZ Healthcare Neutrophils/100 WBC (Bld)70.7 %43.0 - 75.0 %[facility] Health CenterPlatelet mean volume (Bld) [Entitic vol]8.6 fLLow9.5 - 13.5 fLNOThe Rehabilitation InstituteTBH EO #0.2NOMS HealthcareTB [id number] HealthcareTB RBC4.85NOMS HealthcareTBH WBC8.5NOMS HealthcareCLINISYNCNOMS HealthcareDocumentationon 17-95-0907Zfbcrlyljmoid [id number] Mandeep Puri 1975 F Date Provider Department Center 12/14/2024 ANDERSON GOODWIN None Family History Problem Relation Age of Onset Fibromyalgia Mother Heart disease Father Hypertension Sister Polycystic kidney disease Sister Hypertension Brother Polycystic kidney disease Brother Family Status - Relation Status Age at Mother Alive Father Sister Brother Reason for Visit and Comments: Results [95]NormalSelect Medical Specialty Hospital - Southeast OhioALL CBC WITH AUTO DIFFon 68-45-7325EFJTQYADF ABSOLUTE OKIB7SMRDThe Rehabilitation InstituteBasophils/100 WBC (Bld)0.6 %0.2 - 2.0 %[facility] CenterEosinophils/100 WBC (Bld)5 %0.9 - 7.0 %[facility] Erythrocyte distribution width (RBC) [Ratio]15.1 %High11.0 - 15.0 %[facility] CenterHematocrit (Bld) [Volume fraction]38.9 %36.0 - 48.0 %[facility] Hemoglobin (Bld) [Mass/Vol]12.5 g/dL12.0 - 16.0 g/dLSSM Saint Mary's Health CenterIMMATURE GRANULOCYTES ABS AUTO0.04HighNOThe Rehabilitation InstituteImmature granulocytes/100 WBC (Bld) 0.6 %High0.0 - 0.5 %[facility] CenterInterpretation and review of laboratory resultsAbnormalNOThe Rehabilitation InstituteLYMPHOCYTES ABSOLUTE AUTO1.1LowNTexas County Memorial Hospital Lymphocytes/100 WBC (Bld)17.6 %Low20.5 - 60.0 %[facility] HospitalH (RBC) [Entitic mass]27.8 pg26.7 - 34.0 pgNOHawthorn Children's Psychiatric HospitalHC (RBC) [Mass/Vol]32.1 g/dL29.9 - 35.2 g/dLSouthPointe HospitalV (RBC) [Entitic vol]86.6 fL81.0 - 99.0 fLNOMS HealthcareMONOCYTES ABSOLUTE AUTO0.4NOMS HealthcareMonocytes/100 WBC (Bld)5.4 % 1.7 - 12.0 %NOMS HealthcareNEUTROPHILS ABSOLUTE AUTO4.6NOMS Healthcare Neutrophils/100 WBC (Bld)70.8 %43.0 - 75.0 %NOMS HealthcarePlatelet mean volume (Bld) [Entitic vol]8.7 fLLow9.5 - 13.5 fLNOMS HealthcareTBH EO #0.3NOMS HealthcareTBH [id number] HealthcareTBH RBC4.49NOMS HealthcareTBH WBC6.4NOMS HealthcareCLINISYNCNOMS HealthcareRefillon [id number] KhushiMandeep 1975 Date Provider Department Center 11/25/2024 [id number] TORRES TXP None Family History Problem Relation Age of Onset Fibromyalgia Mother Heart disease Father Hypertension Sister Polycystic kidney disease Sister Hypertension Brother Polycystic kidney disease Brother Family Status - Relation Status Age at Mother Alive Father Sister BrotherNormalUniversChillicothe VA Medical CenterFollow-Upon 21-39-1736Sgncmo-Up [id number] Mandeep Puri 1975 Provider Department Center 11/12/202438139-PYUUMVMLEO BATRES TXP None Family History Problem Relation Age of Onset Fibromyalgia Mother Heart disease Father Hypertension Sister Polycystic kidney disease Sister Hypertension Brother Polycystic kidney disease Brother Family Status - Relation Status Age at Mother Alive Father Sister Brother Level of Service:11434 DC OFFICE/OUTPATIENT ESTABLISHED MOD MDM 30 MIN Reason for Visit and Comments: Kidney Follow-up [] - Pt has reoccurring uti's x7 months. She is going to ID to be checked. She would like a standing lab order for a ua.Normal [facility] OhioOrders Onlyon 65-96-4342Tqflpv [id number] Antonio Purii 1975 F Date Provider Department Center 10/21/2024 Jase-LU STEPHENS TXP None Family History Problem Relation Age of Onset Fibromyalgia Mother Heart disease Father Hypertension Sister Polycystic kidney disease Sister Hypertension Brother Polycystic kidney disease Brother Family Status - Relation Status Age at Mother Father Sister BrotherNormalUniversity of Texas Health Presbyterian Hospital PlanoALL URINALYSISon 10-14-2024 BILIRUBIN URINENegativeNEGATIVENOMS HealthcareBLOOD URINETRACE-INEGATIVENOMS HealthcareClarity (U)CLEARCLEARNOMS HealthcareColor (U)LT. YELLOWYELLOWNOMS HealthcareGLUCOSE URINE UANegativeNEGATIVE mg/dLNOMS HealthcareInterpretation and review of laboratory resultsAbnormalNOMS HealthcareKetones Ql (U)Negative NEGATIVE mg/dLNOMS HealthcareLeukocyte esterase Test strip Ql (U)LARGEAbnormal NEGATIVENOMS HealthcareNITRITE URINEPositiveAbnormalNEGATIVENOMS HealthcarepH (U)7.5 [pH]5.0 - 9.0NOMS HealthcarePROTEIN URINENegativeNEG/TRACE mg/dLNOMS HealthcareSPECIFIC GRAVITY URINE1.0151.005 - 1.025NOMS HealthcareUROBILINOGEN URINE0.2 EU/dL0.2 - 1.0 EU/dLNOMS HealthcareCLINISYNCNOMS HealthcareUrine Cultureon [id number] identified Cx Nom (U)ORGANISM: Escherichia coli (MDRO) (O:ESCCOLMDRO) [facility] Count >100,000 Aerobic CODI Charge (NMIC56) SUSCEPTIBILITY [...] ALL B-LACTAM DRUGS. PERFORMED BY: [facility] [address] [id number] PATHOLOGIST SANDWICH MACHINE OPERATOR DOM MARIEE M.D.NormalHca Florida West Hospital Physician GroupComment on above: Performed By: #### CUU #### [facility] [address] [id number] USAALL MAGNESIUMon 81-69-4665Ovlsdgmwm [Mass/Vol]1.8 mg/dL1.8 - 2.4 mg/dLNONY HealthcareALL PHOSPHOROUSon 58-63-2125Fzofneogu [Mass/Vol]3.9 mg/dL2.6 - 4.7 mg/dLNONY HealthcareALL URIC ACIDon 56-43-9900Kimkb [Mass/Vol]4.2 mg/dL2.6 - 6.0 mg/dLNONY HealthcareCCF CMP (CMP) (FOR REMOTE [facility] USE)on 95-71-9422Hbjbwga [Mass/Vol]3.3 g/dLLow3.4 - 5.0 g/dLNONY HealthcareALBUMIN GLOBULIN RATIO0.8NONY HealthcareALP [Catalytic activity/Vol]84 U/L46 - 116 U/L NOMS HealthcareALT [Catalytic activity/Vol]13 U/LLow14 - 59 U/LNOMS Healthcare Anion gap [Moles/Vol]14.6 mmol/LNOMS HealthcareAST [Catalytic activity/Vol]11 U/LLow15 - 37 U/LNOMS HealthcareBilirubin [Mass/Vol]0.3 mg/dL0.2 - 1.0 mg/dLNOMS HealthcareCalcium [Mass/Vol]9.3 mg/dL8.5 - 10.1 mg/dLNOMS HealthcareChloride [Moles/Vol]105 mmol/L98 - 107 mmol/LNOMS HealthcareCO2 [Moles/Vol]25 mmol/L21.0 - 32.0 mmol/LNOMS HealthcareCreatinine [Mass/Vol]1.37 mg/dLHigh0.55 - 1.02 mg/dL [facility] HealthcareGFR/1.73 sq M.predicted CKD-EPI (S/P/Bld) [Vol rate/Area]50Low >=60 mL/min/1.73m 2NVETERANS AFF[facility]IRS [facility] [place] [facility] [place] HealthcareGlobulin (S) [Mass/Vol]4.2 g/dLNOThe Rehabilitation Institute Glucose [Mass/Vol]102 mg/dL74 - 106 mg/dLSSM Saint Mary's Health CenterInterpretation and review of laboratory resultsAbnormalNONY HealthcarePotassium [Moles/Vol]3.6 mmol/L3.5 - 5.1 mmol/LNOMS HealthcareProtein [Mass/Vol]7.5 g/dL6.4 - 8.2 g/dL [facility] HealthcareSodium [Moles/Vol]141 mmol/L136 - 145 mmol/LNOMS HealthcareTBH EGFR-NON AF OTPLIHAK60Cvv>=60 mL/min/1.73m 2NVETERANS AFF[facility]IRS [facility] [place] [facility] [place] HealthcareUrea nitrogen [Mass/Vol]17 mg/dL7.0 - 18.0 mg/dLNOThe Rehabilitation InstituteUrea nitrogen/Creatinine [Mass ratio]12.4 mg/mgSSM Saint Mary's Health CenterMETRO BILIRUBIN, DIRECTon 10-02-2024 Bilirubin.indirect [Mass/Vol]0.1 mg/dL0.0 - 0.2 mg/dLSSM Saint Mary's Health CenterNo Panel Informationon 13-29-6593FWHBORYFLVEFH HealthcareALL CBC WITH AUTO DIFFon 36-13-4643GYWWPHLNI ABSOLUTE RALB1TBRM HealthcareBasophils/100 WBC (Bld)0.3 %0.2 - 2.0 %[facility] CenterEosinophils/100 WBC (Bld)2.8 %0.9 - 7.0 %[facility] Erythrocyte distribution width (RBC) [Ratio]14.5 %11.0 - 15.0 %[facility] Hematocrit (Bld) [Volume fraction]34.4 %Low36.0 - 48.0 %[facility] Hemoglobin (Bld) [Mass/Vol]10.9 g/dLLow12.0 - 16.0 g/dLSSM Saint Mary's Health CenterIMMATURE GRANULOCYTES ABS AUTO0.03NOThe Rehabilitation InstituteImmature granulocytes/100 WBC (Bld)0.4 % 0.0 - 0.5 %[facility] CenterInterpretation and review of laboratory results AbnormalSSM Saint Mary's Health CenterLYMPHOCYTES ABSOLUTE AUTO1.2NOMS [facility] Lymphocytes/100 WBC (Bld)15.4 %Low20.5 - 60.0 %[facility] HospitalH (RBC) [Entitic mass]27.5 pg26.7 - 34.0 pgSouthPointe HospitalHC (RBC) [Mass/Vol]31.7 g/dL29.9 - 35.2 g/dLSouthPointe HospitalV (RBC) [Entitic vol]86.9 fL81.0 - 99.0 fLSSM Saint Mary's Health CenterMONOCYTES ABSOLUTE AUTO0.5NOThe Rehabilitation InstituteMonocytes/100 WBC (Bld)6.2 % 1.7 - 12.0 %[facility] CenterNEUTROPHILS ABSOLUTE AUTO5.7NOThe Rehabilitation Institute Neutrophils/100 WBC (Bld)74.9 %43.0 - 75.0 %[facility] CenterPlatelet mean volume (Bld) [Entitic vol]8.5 fLLow9.5 - 13.5 fLSSM Saint Mary's Health CenterTBH EO #0.2NOMS [facility] HospitalTB [id number] Hospital RBC3.96LowNOThe Rehabilitation InstituteTB WBC7.6[facility] Health CenterCLINISYNCNTexas County Memorial HospitalALL LIPID PROFILE (FASTING)on [id number] HDL RATIO3.6[facility] CenterComment on above:3.3 - 4.4 LOW RISK 4.4 - 7.1 AVERAGE RISK 7.1 - 11.0 MODERATE RISK >11.0 HIGH RISK Cholesterol [Mass/Vol]175 mg/dLNINF - 200 mg/dLSSM Saint Mary's Health CenterCholesterol in HDL [Mass/Vol]49 mg/dL40 - 60 mg/dLSSM Saint Mary's Health CenterComment on above:> or =60 mg/dl - LOW CARDIOVASCULAR RISK <40 mg/dl - HIGH CARDIOVASCULAR RISK Magnesium [Mass/Vol]99.6 mg/dLLDS HOSPITAL HealthcareComment on above:<100 mg/dl OPTIMAL 100-129 mg/dl NEAR OR ABOVE OPTIMAL 130-159 mg/dl BORDERLINE HIGH 160-189 mg/dl HIGH >190 mg/dl VERY HIGH Magnesium [Mass/Vol]26.4 mg/dLSSM Saint Mary's Health CenterTriglyceride [Mass/Vol]132 mg/dL NINF - 150 mg/dLNOMS HealthcareALL MAGNESIUMon [id number] [Mass/Vol]1.9 mg/dL1.8 - 2.4 mg/dLNOMS HealthcareALL PHOSPHOROUSon [id number] [Mass/Vol]3.7 mg/dL2.6 - 4.7 mg/dLNOMS HealthcareALL URIC ACIDon [id number] [Mass/Vol]4 mg/dL2.6 - 6.0 mg/dLNOMS HealthcareCCF CMP (CMP) (FOR REMOTE [facility] USE)on [id number] [Mass/Vol]3.4 g/dL3.4 - 5.0 g/dLNOMS HealthcareALBUMIN GLOBULIN RATIO0.8NONY HealthcareALP [Catalytic activity/Vol]86 U/L46 - 116 U/L NOMS HealthcareALT [Catalytic activity/Vol]19 U/L14 - 59 U/LNOMS HealthcareAnion gap [Moles/Vol]17.2 mmol/LNOMS HealthcareAST [Catalytic activity/Vol]11 U/LLow15 - 37 U/LNOMS HealthcareBilirubin [Mass/Vol]0.4 mg/dL0.2 - 1.0 mg/dLNOMS HealthcareCalcium [Mass/Vol]9.3 mg/dL8.5 - 10.1 mg/dLNOMS HealthcareChloride [Moles/Vol]104 mmol/L98 - 107 mmol/LNOMS HealthcareCO2 [Moles/Vol]24.6 mmol/L 21.0 - 32.0 mmol/LNOMS HealthcareCreatinine [Mass/Vol]1.34 mg/dLHigh0.55 - 1.02 mg/dLNOMS HealthcareGFR/1.73 sq M.predicted CKD-EPI (S/P/Bld) [Vol rate/Area]51 Low>=60 mL/min/1.73m 2NOMS HealthcareGlobulin (S) [Mass/Vol]4.2 g/dLNOMS HealthcareGlucose [Mass/Vol]98 mg/dL74 - 106 mg/dLNOMS HealthcareInterpretation and review of laboratory resultsAbnormalNOMS HealthcarePotassium [Moles/Vol]3.8 mmol/L3.5 - 5.1 mmol/LNOMS HealthcareProtein [Mass/Vol]7.6 g/dL6.4 - 8.2 g/dL NOMS HealthcareSodium [Moles/Vol]142 mmol/L136 - 145 mmol/LNOMS HealthcareTBH EGFR-NON AF NUQGPPSJ74Mgy>=60 mL/min/1.73m 2NOMS HealthcareUrea nitrogen [Mass/Vol]16 mg/dL7.0 - 18.0 mg/dLNOMS HealthcareUrea nitrogen/Creatinine [Mass ratio]11.9 mg/mgNOMS HealthcareMETRO BILIRUBIN, DIRECTon 08-31-2024 Bilirubin.indirect [Mass/Vol]0.1 mg/dL0.0 - 0.2 mg/dLNONY HealthcareMLR HEMOGLOBIN A1Con 76-29-2100Zoizqpw [Mass/Vol]103 mg/dLNOThe Rehabilitation InstituteZeexcuvnbmZdF6x (Bld) [Mass fraction]5.2 %4.5 - 6.2 %NOMS HealthcareComment on above:ADA RECOMMENDED LIMIT 4.0 - 6.0 ADA THERAPEUTIC TARGET < 7.0 ACTION SUGGESTED > 7.0 CLINISYThe [facility] ClinicNo Panel Informationon 77-78-1407DQBCNBELEWFVS HealthcareMM screening mammo BI w/CADon 65-91-5740IV screening mammo BI w/CAD [facility] [place] [address] Mammography Report Signed Patient: Mandeep Puri MR#: [id number] : 1975 Acct:[id number] Age/Sex: 48 / F ADM Date: 08/25/24 Loc: [place] Room: Type: [facility] [address] Attending Dr: Blake Hinojosa DO Copies to: [...] Messina Jr., D.O.08/25/2024 3:24 PM Dictation Location: [facility] Transcribed By: SALMA 08/25/24 1524 Dictated By: Evan Messina Jr, DO 08/25/24 1523 Signed By: 08/25/24 1524[facility] GroupMammography reportOrdered By: Evan Messina on 90-94-5137Uqsrhjvgfd imaging [facility] [place] [address] [place] [address] Mammography Report Signed Patient: Mandeep Puri MR#: [id number] : 1975 Acct:[id number] Age/Sex: 48 / F ADM Date: 4 Loc: [place] Room: Type: [facility] Attending Dr: Blake Hinojosa DO Copies to: [...] Messina Jr., D.O.08/25/2024 3:24 PM Dictation Location: [facility] Transcribed By: [facility] 08/25/24 152 Dictated By: Evan Messina Jr, DO 08/25/24 152 Signed By: 08/25/24 1524 [facility] CenterCA 125on 03-30-6427KIXAUK ANTIGEN 14144.90.0 - 38.1NTexas County Memorial HospitalComment on above:[employer] Electrochemiluminescence Immunoassay (ECLIA) Values obtained with different assay methods or kits cannot be used interchangeably. Results cannot be interpreted as absolute evidence of the presence or absence of malignant disease. Performed at: [address] [id number] Jde Developer: Gabriel Whitman PhD, Phone: [phone] [facility]24 hour urine albumin/total protein ratio by electrophoresis Ordered By: Jesus Ayala on 91-78-3594Qhzoskc Elph (24H U) [Mass fraction] Albumin/Protein.total in 24 hour Urine by Electrophoresis.[facility]24 hour urine gamma globulin/total protein ratio by electrophoresisOrdered By: Jesus Ayala on 62-57-8986Yqodb globulin Elph (24H U) [Mass fraction]Gamma globulin/Protein.total in 24 hour Urine by Electrophoresis.[facility]24 hour urine protein monoclonal/total protein by electrophoresisOrdered By: Jesus Ayala on 37-16-2248Hfgyywe.monoclonal Elph (24H U) [Mass fraction] Protein.monoclonal/Protein.total in 24 hour Urine by ElectrophoresisNot Observed [facility] Medical CenterAlanine aminotransferase [Enzymatic activity/volume] in Serum or PlasmaOrdered By: Jesus Ayala on 12-96-9660COS [Catalytic activity/Vol]11 U/LNormal7-52[facility] Medical CenterComment on above:Performed By: #### ESR, CK, ADDONUAPLUS, CMP, CRP, T4F, TSH3, CBC #### [facility] [address] [place] [address] [place] #### ALDOLASE, CAMILLA SERUM, SPE, CAMILLA,URINE, UPE RAND #### [facility] ,ALT [Catalytic activity/Vol]Alanine aminotransferase [Enzymatic activity/volume] in Serum or PlasmaOhiohealth Southeastern Medical CenterAlbumin [Mass/volume] in Serum or Plasma by Bromocresol green (BCG) dye binding metho Ordered By: Jesus Ayala on 50-23-6129Wgnqnvw BCG dye [Mass/Vol]4.3 g/dL 3.5-5.7FGrand Lake Joint Township District Memorial HospitalAlbumin BCG dye [Mass/Vol]Albumin [Mass/volume] in Serum or Plasma by Bromocresol green (BCG) dye binding metho 3.5-5.7FGrand Lake Joint Township District Memorial HospitalAldolaseon 84-01-1194Ljanhtvw2.5 U/L Normal3.3-10.3The Firsthealth Physician GroupComment on above:Result Comment: Performed at: - [facility] [id number] Jde Developer: Gabriel Whitman PhD, Phone: [phone] PERFORMED BY: [place] [address] PATHOLOGIST SANDWICH MACHINE OPERATOR ANAHY MCKEE M.D.Performed By: #### CEA #### [address] #### CA125 #### [facility] ,Alkaline phosphatase [Enzymatic activity/volume] in Serum or PlasmaOrdered By: Jesus Ayala on 96-59-7473FYN [Catalytic activity/Vol]87 U/KZjcqgs50-436 [facility] CenterComment on above:Performed By: #### ESR, CK, ADDONUAPLUS, CMP, CRP, T4F, TSH3, CBC #### [facility] [address] [place] [address] [place] #### ALDOLASE, CAMILLA SERUM, SPE, CAMILLA,URINE, UPE RAND #### [facility] ,ALP [Catalytic activity/Vol]Alkaline phosphatase [Enzymatic activity/volume] in Serum or Usgprd90-935QooobmnjrOhiohealth Southeastern Medical CenterAppearance of UrineOrdered By: Jesus Ayala on 27-12-6933Rdidolqvwy (U)Urine appearanceCleTrumbull Regional Medical CenterAspartate aminotransferase [Enzymatic activity/volume] in Serum or PlasmaOrdered By: Jesus Ayala on 79-39-4239QRD [Catalytic activity/Vol]13 U/GImvqqk99-16QagarccasOhiohealth Southeastern Medical CenterComment on above: Performed By: #### ESR, CK, ADDONUAPLUS, CMP, CRP, T4F, TSH3, CBC #### [facility] [address] [place] [address] #### ALDOLASE, CAMILLA SERUM, SPE, CAMILLA,URINE, UPE RAND #### [facility] ,AST [Catalytic activity/Vol]Aspartate aminotransferase [Enzymatic activity/volume] in Serum or Icutnr52-28JuwgekobqOhiohealth Southeastern Medical Center Automated basophil %Ordered By: Jesus Gruberrow on 44-61-5313Jcwyrvvcu/100 WBC (Bld)0.6 %Normal.[facility] Medical CenterComment on above:Performed By: #### CEA #### [facility] [address] [place] [address] [place] #### CA125 #### [facility] ,Automated basophil countOrdered By: Jesus Gruberrow on 73-61-6715Vqjznbmrc (Bld) [#/Vol]0.0 10*3/uLNormal0.0-0.2FGrand Lake Joint Township District Memorial HospitalComment on above:Performed By: #### CEA #### [facility] [address] [place] [address] [place] #### CA125 #### [facility] ,Automated blood monocyte countOrdered By: Jesus Gruberrow on 24-18-0991Pprdglvxk (Bld) [#/Vol]0.4 10*3/uLNormal0.0-0.8[facility] Medical CenterComment on above:Performed By: #### CEA #### [facility] [address] [place] [address] [place] #### CA125 #### [facility] ,Automated eosinophil %Ordered By: Jesus Ayala on 77-76-6172Nsrnlwqhgrb/100 WBC (Bld)3.0 %Normal.[facility] Medical CenterComment on above:Performed By: #### CEA #### [facility] [address] [place] [address] [place] #### CA125 #### [facility] ,Automated eosinophil countOrdered By: Jesus Ayala on 61-46-3688Dmeupdflfku (Bld) [#/Vol]0.2 10*3/uLNormal0.0-0.45[facility] Medical CenterComment on above:Performed By: #### CEA #### [place] [address] [place] #### CA125 #### [facility] ,Automated epithelial cells count in urine sediment (number/area)Ordered By: Jesus Ayala on 02-23-2200Fdxnsnnfxv cells Auto (Urine sed) [#/Area]5-9 [HPF] High02FGrand Lake Joint Township District Memorial HospitalEpithelial cells Auto (Urine sed) [#/Area]Automated epithelial cells count in urine sediment (number/area)High0-2 [facility] Medical CenterAutomated erythrocytes count in urine sediment (number/area)Ordered By: Jesus Ayala on 18-42-3411VXF Auto (Urine sed) [#/Area]Erythrocytes [#/area] in Urine sediment by Automated count0-4FGrand Lake Joint Township District Memorial HospitalAutomated leukocytes count in urine sediment (number/area)Ordered By: Jesus Ayala on 24-54-3090VLM Auto (Urine sed) [#/Area]Leukocytes [#/area] in Urine sediment by Automated count0-4FGrand Lake Joint Township District Memorial HospitalAutomated monocyte %Ordered By: Jesus Ayala on 06-06-6873Oruywknoz/100 WBC (Bld)4.5 %Normal.[facility] Comment on above:Performed By: #### CEA #### [place] [address] [place] #### CA125 #### [facility] ,Automated neutrophil %Ordered By: Jesus Ayala on 32-31-1375Larkwbwpmyq/100 WBC (Bld)76.9 %Normal.[facility] Medical CenterComment on above: Performed By: #### CEA #### [place] [address] [place] #### CA125 #### [facility] ,Bacteria [Presence] in Urine by AutomatedOrdered By: Jesus Ayala on 19-69-8859Zialyaci Auto Ql (U)None seen [HPF]None SeenOhiohealth Southeastern Medical CenterBasophils Auto (Bld) [#/Vol]Ordered By: Jesus Ayala on 08-02-2024 Basophils (Bld) [#/Vol]Automated basophil count0.0-0.2FGrand Lake Joint Township District Memorial HospitalBasophils/100 WBC Auto (Bld)Ordered By: Jesus Ayala on 08-02-2024 Basophils/100 WBC (Bld)Automated basophil %.[facility] Bilirubin Test strip Ql (U)Ordered By: Jesus Ayala on 53-13-2352Gipjkobwm Ql (U)NegativeNegativeOhiohealth Southeastern Medical CenterBilirubin Ql (U) Bilirubin.total [Presence] in Urine by Test stripNegativeOhiohealth Southeastern Medical CenterBilirubin.total [Mass/volume] in Serum or PlasmaOrdered By: Jesus Ayala on 42-25-0565Ghcfzrxhx [Mass/Vol]0.3 mg/dLNormal0.3-1.0[facility] Medical CenterComment on above:Performed By: #### ESR, CK, ADDONUAPLUS, CMP, CRP, T4F, TSH3, CBC #### [place] [address] [place] #### ALDOLASE, CAMILLA SERUM, SPE, CAMILLA,URINE, UPE RAND #### [facility] ,Bilirubin [Mass/Vol]Bilirubin.total [Mass/volume] in Serum or Plasma0.3-1.0 [facility] CenterC reactive protein [Mass/volume] in Serum or PlasmaOrdered By: Jesus Ayala on 15-49-7893DLD [Mass/Vol]1.7 mg/dLHigh0.0-0.5 [facility] CenterCRP [Mass/Vol]C reactive protein [Mass/volume] in Serum or PlasmaHigh0.0-0.5FGrand Lake Joint Township District Memorial HospitalC-Reactive Protein on 16-50-8933B-Reactive Protein1.7 mg/dLHigh0.0-0.5[facility] Comment on above:Performed By: #### ESR, CK, ADDONUAPLUS, CMP, CRP, T4F, TSH3, CBC #### [facility] [address] #### ALDOLASE, CAMILLA SERUM, SPE, CAMILLA,URINE, UPE RAND #### [facility] ,CARCINOEMBRYONIC ANTIGENon 14-20-1883SAUH HealthcareCEA ser/plasOrdered By: Blake Hinojosa on 58-20-3845Ejlyhykslvblhmnd Ag [Mass/Vol]Serum or plasma carcinoembryonic antigen measurement (mass/volume)0.0-3.0[facility] Medical CenterComment on above:Serial tumor marker results determined by assays using different manufacturers or methods may not be comparable.[facility] cost accounting analyst and method:RUSSELL UNICEL DXI, 2 SITE IMMUNOENZYMATIC SANDWICH ASSAY.Calcium [Mass/volume] in Serum or PlasmaOrdered By: Jesus Ayala on 97-28-0764Jmqbiwv [Mass/Vol]9.8 mg/dLNormal8.6-10.3FGrand Lake Joint Township District Memorial HospitalComment on above:Performed By: #### ESR, CK, ADDONUAPLUS, CMP, CRP, T4F, TSH3, CBC #### [facility] [address] [place] [address] [place] #### ALDOLASE, CAMILLA SERUM, SPE, CAMILLA,URINE, UPE RAND #### [facility] ,Calcium [Mass/Vol]Calcium [Mass/volume] in Serum or Plasma8.6-10.3FGrand Lake Joint Township District Memorial HospitalCancer Antigen 125on 96-60-7019Yfjgrc Antigen 36489.9 Normal0.0-38.1The Firsthealth Physician GroupComment on above:Result Comment: [employer] Electrochemiluminescence Immunoassay (ECLIA) Values obtained with different assay methods or kits cannot be used interchangeably. Results cannot be interpreted as absolute evidence of the presence or absence of malignant disease. Performed at: [address] [id number] Jde Developer: Gabriel Whitman PhD, Phone: [phone] PERFORMED BY: [place] [address] PATHOLOGIST SANDWICH MACHINE OPERATOR ANAHY MCKEE M.D.Performed By: #### CEA #### [address] #### CA[address] #### [facility] ,Carbon dioxide, total [Moles/volume] in Serum or PlasmaOrdered By: Jesus Ayala on 75-05-0277AP1 [Moles/Vol]24.6 mmol/ABjuoht78.0-31.0[facility] Medical CenterComment on above:Performed By: #### ESR, CK, ADDONUAPLUS, CMP, CRP, T4F, TSH3, CBC #### [place] [address] [place] #### ALDOLASE, CAMILLA SERUM, SPE, CAMILLA,URINE, UPE RAND #### [facility] ,CO2 [Moles/Vol]Carbon dioxide, total [Moles/volume] in Serum or Jijhzd66.0-31.0 [facility] Medical CenterChloride [Moles/volume] in Serum or Plasma Ordered By: Jesus Ayala on 73-15-5471Vxvivbud [Moles/Vol]105 mmol/LNormal 98-107Ohio[facility]heastern Medical CenterComment on above:Performed By: #### ESR, CK, ADDONUAPLUS, CMP, CRP, T4F, TSH3, CBC #### [place] [address] [place] #### ALDOLASE, CAMILLA SERUM, SPE, CAMILLA,URINE, UPE RAND #### [facility] ,Chloride [Moles/Vol]Chloride [Moles/volume] in Serum or Yuxoej46-467UsbxqaxkbOhiohealth Southeastern Medical CenterColor Auto (U)Ordered By: Jesus Gruberrow on 08-02-2024 Color (U)Color of Urine by AutoYellowOhiohealth Southeastern Medical CenterColor of Urine by AutoOrdered By: Jesus Ayala on 31-18-3196Unekk (U)Light-yellowNormal YellowOhiohealth Southeastern Medical CenterComment on above:Order Comment: Name Collection Type:: Clean-Voided MidstreamPerformed By: #### ESR, CK, ADDONUAPLUS, CMP, CRP, T4F, TSH3, CBC #### [facility] [address] [place] [address] #### ALDOLASE, CAMILLA SERUM, SPE, CAMILLA,URINE, UPE RAND #### [facility] ,Complete Blood Count Auto Diffon 29-40-9154Dlmm Corpuscular HGB Conc33.5 g/dL Qgdxqn31.0-35.0The Firsthealth Physician GroupComment on above:Performed By: #### CEA #### [facility] [address] [place] [address] [place] #### CA125 #### [facility] ,NRBC%0.1 /100{WBC}Normal0-0.5The Firsthealth Physician GroupComment on above: Performed By: #### CEA #### [facility] [address] [place] [address] [place] #### CA125 #### [facility] ,Comprehensive Metabolic Panelon 24-11-2145Hncimbj [Mass/Vol]4.3 g/dLNormal 3.5-5.7The Firsthealth Physician GroupComment on above:Performed By: #### ESR, CK, ADDONUAPLUS, CMP, CRP, T4F, TSH3, CBC #### [place] [address] [place] #### ALDOLASE, CAMILLA SERUM, SPE, CAMILLA,URINE, UPE RAND #### [facility] ,GFR/1.73 sq M.predicted MDRD (S/P/Bld) [Vol rate/Area]mL/min/{1.73_m2}NormalThe Firsthealth Physician GroupComment on above:Performed By: #### ESR, CK, ADDONUAPLUS, CMP, CRP, T4F, TSH3, CBC #### [facility] [address] [place] [address] #### ALDOLASE, CAMILLA SERUM, SPE, CAMILLA,URINE, UPE RAND #### [facility] ,Creatine kinase [Enzymatic activity/volume] in Serum or PlasmaOrdered By: Jesus Ayala on 66-89-5586PV [Catalytic activity/Vol]39 U/GVvmpjl97-225 [facility] Medical CenterComment on above:Result Comment: PERFORMED BY: [place] [address] PATHOLOGIST SANDWICH MACHINE OPERATOR ANAHY MCKEE M.D.Performed By: #### ESR, CK, ADDONUAPLUS, CMP, CRP, T4F, TSH3, CBC #### [address] #### ALDOLASE, CAMILLA SERUM, SPE, CAMILLA,URINE, UPE RAND #### [facility] ,CK [Catalytic activity/Vol]Creatine kinase [Enzymatic activity/volume] in Serum or Qhtgbr05-296AydiuruceOhiohealth Southeastern Medical CenterCreatinine [Mass/volume] in Serum or PlasmaOrdered By: Jesus Ayala on 10-11-4478Mwluvchdog [Mass/Vol]1.10 mg/dLNormal0.60-1.20[facility] Medical CenterComment on above:Performed By: #### ESR, CK, ADDONUAPLUS, CMP, CRP, T4F, TSH3, CBC #### [facility] [address] [place] [address] [place] #### ALDOLASE, CAMILLA SERUM, SPE, CAMILLA,URINE, UPE RAND #### [facility] ,Creatinine [Mass/Vol]Creatinine [Mass/volume] in Serum or Plasma0.60-1.20 [facility]heastern Medical CenterDipstick and Microscopicon 08-02-2024 Bacteria,UrineNone SeenNormalNone SeenThe Firsthealth Physician GroupComment on above:Order Comment: Name Collection Type:: Clean-Voided MidstreamPerformed By: #### ESR, CK, ADDONUAPLUS, CMP, CRP, T4F, TSH3, CBC #### [address] #### ALDOLASE, CAMILLA SERUM, SPE, CAMILLA,URINE, UPE RAND #### [facility] ,Bilirubin,UrineNegativeNormalNegativeThe Firsthealth Physician GroupComment on above:Order Comment: Name Collection Type:: Clean-Voided MidstreamPerformed By: #### ESR, CK, ADDONUAPLUS, CMP, CRP, T4F, TSH3, CBC #### [address] #### ALDOLASE, CAMILLA SERUM, SPE, CAMILLA,URINE, UPE RAND #### [facility] ,Glucose Ql (U)50 mg/dLMan Appalachian Regional HospitalNoNovant Health Clemmons Medical Center Physician GroupComment on above: Order Comment: Name Collection Type:: Clean-Voided MidstreamPerformed By: #### ESR, CK, ADDONUAPLUS, CMP, CRP, T4F, TSH3, CBC #### [address] #### ALDOLASE, CAMILLA SERUM, SPE, CAMILLA,URINE, UPE RAND #### [facility] ,Hyaline Casts,Obfij4-9Ypablf2-8Wrw [facility] Physician GroupComment on above: Order Comment: Name Collection Type:: Clean-Voided MidstreamResult Comment: PERFORMED BY: [place] [address] PATHOLOGIST SANDWICH MACHINE OPERATOR ANAHY MCKEE M.D.Performed By: #### ESR, CK, ADDONUAPLUS, CMP, CRP, T4F, TSH3, CBC #### [address] #### ALDOLASE, CAMILLA SERUM, SPE, CAMILLA,URINE, UPE RAND #### [facility] ,Nitrite,UrineNegativeNormalNegativeThe Firsthealth Physician GroupComment on above:Order Comment: Name Collection Type:: Clean-Voided MidstreamPerformed By: #### ESR, CK, ADDONUAPLUS, CMP, CRP, T4F, TSH3, CBC #### [address] #### ALDOLASE, CAMILLA SERUM, SPE, CAMILLA,URINE, UPE RAND #### [facility] ,Occult Blood,UrineNegativeNormalNegativeThe Firsthealth Physician GroupComment on above:Order Comment: Name Collection Type:: Clean-Voided MidstreamPerformed By: #### ESR, CK, ADDONUAPLUS, CMP, CRP, T4F, TSH3, CBC #### [address] #### ALDOLASE, CAMILLA SERUM, SPE, CAMILLA,URINE, UPE RAND #### [facility] ,Protein,UrineNegativeNormalNegativeThe Firsthealth Physician GroupComment on above:Order Comment: Name Collection Type:: Clean-Voided MidstreamPerformed By: #### ESR, CK, ADDONUAPLUS, CMP, CRP, T4F, TSH3, CBC #### [place] [address] [place] #### ALDOLASE, CAMILLA SERUM, SPE, CAMILLA,URINE, UPE RAND #### [facility] ,RBC,Utigo1-6Exdmpo9-1Rvp [facility] Physician GroupComment on above:Order Comment: Name Collection Type:: Clean-Voided MidstreamPerformed By: #### ESR, CK, ADDONUAPLUS, CMP, CRP, T4F, TSH3, CBC #### [place] [address] [place] #### ALDOLASE, CAMILLA SERUM, SPE, CAMILLA,URINE, UPE RAND #### [facility] ,Specificy [place],Urine1.457Cjujox7.001-1.030The [facility] Comment on above:Order Comment: Name Collection Type:: Clean-Voided Midstream Performed By: #### ESR, CK, ADDONUAPLUS, CMP, CRP, T4F, TSH3, CBC #### [address] #### ALDOLASE, CAMILLA SERUM, SPE, CAMILLA,URINE, UPE RAND #### [facility] ,Squamous Epithelial Cell,Txmsv1-1Tywd0-4Cmg [facility] Physician GroupComment on above:Order Comment: Name Collection Type:: Clean-Voided MidstreamPerformed By: #### ESR, CK, ADDONUAPLUS, CMP, CRP, T4F, TSH3, CBC #### [address] #### ALDOLASE, CAMILLA SERUM, SPE, CAMILLA,URINE, UPE RAND #### [facility] ,Urobilinogen,UrineNormalNormalNormalThe Firsthealth Physician GroupComment on above:Order Comment: Name Collection Type:: Clean-Voided MidstreamPerformed By: #### ESR, CK, ADDONUAPLUS, CMP, CRP, T4F, TSH3, CBC #### [address] #### ALDOLASE, CAMILLA SERUM, SPE, CAMILLA,URINE, UPE RAND #### [facility] ,WBC,Zhxwy8-6Oqpasu7-4Qtt [facility] Physician GroupComment on above:Order Comment: Name Collection Type:: Clean-Voided MidstreamPerformed By: #### ESR, CK, ADDONUAPLUS, CMP, CRP, T4F, TSH3, CBC #### [address] #### ALDOLASE, CAMILLA SERUM, SPE, CAMILLA,URINE, UPE RAND #### [facility] ,Eosinophils Auto (Bld) [#/Vol]Ordered By: Jesus Ayala on 08-02-2024 Eosinophils (Bld) [#/Vol]Automated eosinophil count0.0-0.45[facility] Medical CenterEosinophils/100 WBC Auto (Bld)Ordered By: Jesus Ayala on 87-60-0141Ocidkigsmit/100 WBC (Bld)Automated eosinophil %.[facility] Medical CenterErythrocyte Sedimentation Rateon 75-81-3022ZCH (Bld) [Velocity]73 mm/hHigh0-19The [facility] Physician GroupComment on above:Result Comment: PERFORMED BY: [place] [address] PATHOLOGIST SANDWICH MACHINE OPERATOR ANAHY MCKEE M.D.Performed By: #### CEA #### [address] #### CA125 #### [facility] ,Erythrocyte distribution width Auto (RBC) [Ratio]Ordered By: Jesus Ayala on 35-22-6652Vepohuowkea distribution width (RBC) [Ratio]Erythrocyte distribution width [Ratio] by Automated texgwKqjo73.9-15.3FGrand Lake Joint Township District Memorial Hospital Erythrocyte distribution width [Ratio] by Automated countOrdered By: Jesus Ayala on 33-25-0555Jrgezehfdsc distribution width (RBC) [Ratio]15.7 %High 11.9-15.3FGrand Lake Joint Township District Memorial HospitalComment on above:Performed By: #### CEA #### [facility] [address] [place] [address] [place] #### CA125 #### [facility] ,Erythrocyte sedimentation rate by Photometric methodOrdered By: Jesus Ayala on 14-43-9165RPI Photometric method (Bld) [Velocity]73 mm/hrHigh0Ohio[facility] Medical CenterESR Photometric method (Bld) [Velocity]Erythrocyte sedimentation rate by Photometric methodMan Appalachian Regional HospitalOhiohealth Southeastern Medical CenterErythrocytes [#/area] in Urine sediment by Automated countOrdered By: Jesus Ayala on 74-91-1990YOL Auto (Urine sed) [#/Area]3-4 [HPF]0-4FGrand Lake Joint Township District Memorial HospitalErythrocytes [#/volume] in Blood by Automated count Ordered By: Jesus Ayala on 98-41-6608WTU (Bld) [#/Vol]4.37 10*6/uLNormal 3.60-5.00[facility] Medical CenterComment on above:Performed By: #### CEA #### [address] #### CA125 #### [facility] ,Globulin Calc (S) [Mass/Vol]Ordered By: Jesus Ayala on 60-02-0056Uabuffcu (S) [Mass/Vol]Serum globulin measurement by calculation (mass/volume)[facility] Medical CenterGlucose [Mass/volume] in Serum or PlasmaOrdered By: Jesus Ayala on 04-10-9653Qnrsnod [Mass/Vol]146 mg/bOMlws81-649Ftjquahyd44 Henderson StreetComment on above:ADA recommended reference rangeRandom Glucose Reference Range is dependent on time and content of last meal. Glucose of more than 200 mg/dL in a nonstressed, ambulatory subject supports the diagnosisof Diabetes Mellitus.Result Comment: Random Glucose Reference Range is dependent on time and content of last meal. Glucose of more than 200 mg/dL in a nonstressed, ambulatory subject supports the diagnosis of Diabetes Mellitus. ADA recommended reference rangePerformed By: #### ESR, CK, ADDONUAPLUS, CMP, CRP, T4F, TSH3, CBC #### [place] [address] [place] #### ALDOLASE, CAMILLA SERUM, SPE, CAMILLA,URINE, UPE RAND #### [facility] ,Glucose [Mass/Vol]Glucose [Mass/volume] in Serum or FqtsgfCwox76-749Ryzqsgomk44 Henderson StreetComment on above:ADA recommended reference rangeRandom Glucose Reference Range is dependent on time and content of last meal. Glucose of more than 200 mg/dL in a nonstressed, ambulatory subject supports the diagnosisof Diabetes Mellitus.Glucose [Mass/volume] in Urine by Test strip Ordered By: Jesus Ayala on 94-38-9460Bsxgpdt Test strip (U) [Mass/Vol]50 mg/dLTuscarawas HospitalGlucose Test strip (U) [Mass/Vol]Glucose [Mass/volume] in Urine by Test stripHighRegency Hospital Cleveland EastHematocrit Auto (Bld) [Volume fraction]Ordered By: Jesus Ayala on 69-06-8666Zgaedzqnyh (Bld) [Volume fraction]Hematocrit [Volume Fraction] of Blood by Automated count34.0-46.4FGrand Lake Joint Township District Memorial Hospital Hematocrit [Volume Fraction] of Blood by Automated countOrdered By: Jesus Ayala on 83-21-9647Rhhteujnkz (Bld) [Volume fraction]37.0 %Pbqirf55.0-46.4 [facility] Medical CenterComment on above:Performed By: #### CEA #### [facility] [address] [place] [address] [place] #### CA125 #### [facility] ,Hemoglobin Test strip Ql (U)Ordered By: Jesus Ayala on 67-80-0297Xydabmxxty Ql (U)NegativeNegSt. Rita's HospitalHemoglobin Ql (U) Hemoglobin [Presence] in Urine by Test stripNegSt. Rita's HospitalHemoglobin [Mass/volume] in BloodOrdered By: Jesus Ayaal on 08-02-2024 Hemoglobin (Bld) [Mass/Vol]12.4 g/rZTuswmc92.8-15.4FGrand Lake Joint Township District Memorial HospitalComment on above:Performed By: #### CEA #### [facility] [address] [place] [address] [place] #### CA125 #### [facility] ,Hemoglobin (Bld) [Mass/Vol]Hemoglobin [Mass/volume] in Blood11.8-15.4FGrand Lake Joint Township District Memorial HospitalImmunofixation for UrineOrdered By: Jesus Ayala on 93-76-5660Dsowikhjmdbuwo Immunofixation (U) [Interp]Immunofixation for Urine. [facility] Medical CenterComment on above:No monoclonality detected.Performed at: [facility] [address] [id number] Director: Gabriel Whitman PhD, Phone: [phone], (CAMILLA), Urineon 62-04-0093Uiexmwpkzkpsci, (CAMILLA), UrineCommentNormal.The Firsthealth Physician GroupComment on above:Result Comment: No monoclonality detected. Performed at: [facility] [address] [id number] Jde Developer: Gabriel Whitman PhD, Phone: [phone] By: #### CEA #### [facility] [address] [place] [address] [place] #### CA125 #### [facility] ,Immunofixation,Serumon 64-97-3511Mxsrjjvbaibtsu, SerumCommentNormal.The Firsthealth Physician GroupComment on above:Result Comment: No monoclonality detected.Performed By: #### CEA #### [facility] [address] [place] [address] [place] #### CA125 #### [facility] ,Immunoglobulin A, Gdcdn507 mg/cKKacupi02-723Mhm [facility] Comment on above:Performed By: #### CEA #### [facility] [address] [place] [address] [place] #### CA125 #### [facility] ,Immunoglobulin G1357 mg/bOFlvtfl125-2733Muv [facility] Physician GroupComment on above:Performed By: #### CEA #### [facility] [address] [place] [address] [place] #### CA125 #### [facility] ,Immunoglobulin M, Serum94 mg/cGVoygra83-719Ugs [facility] Physician GroupComment on above:Result Comment: Performed at: [facility] [address] [id number] Jde Developer: Gabriel Whitman PhD, Phone: [phone] By: #### CEA #### [address] #### CA125 #### [facility] ,Ketones Test strip Ql (U)Ordered By: Jesus Gruberrow on 27-39-5549Suliheb Ql (U) Ketones [Presence] in Urine by Test stripNegSt. Rita's HospitalKetones [Presence] in Urine by Test stripOrdered By: Jesushelio Ayala on 66-67-3116Ydsxeom Ql (U)NegativeNormalNegSt. Rita's Hospital Comment on above:Order Comment: Name Collection Type:: Clean-Voided Midstream Performed By: #### ESR, CK, ADDONUAPLUS, CMP, CRP, T4F, TSH3, CBC #### [address] #### ALDOLASE, CAMILLA SERUM, SPE, CAMILLA,URINE, UPE RAND #### [facility] ,Laboratory - UrinalysisOrdered By: Jesus Jamie on 92-44-9013Bdyaeue casts LM Ql (Urine sed)0-8 [LPF]0-8[facility] CenterLeukocyte esterase [Presence] in Urine by Test stripOrdered By: Jesus Jamie on 08-02-2024 Leukocyte esterase Test strip Ql (U)NegativeMemorial Health System Marietta Memorial HospitalComment on above:Order Comment: Name Collection Type:: Clean- Voided MidstreamPerformed By: #### ESR, CK, ADDONUAPLUS, CMP, CRP, T4F, TSH3, CBC #### [address] #### ALDOLASE, CAMILLA SERUM, SPE, CAMILLA,URINE, UPE RAND #### [facility] ,Leukocyte esterase Test strip Ql (U)Leukocyte esterase [Presence] in Urine by Test stripNegSt. Rita's HospitalLeukocytes [#/area] in Urine sediment by Automated countOrdered By: Jesus Ayala on 41-58-1991FXR Auto (Urine sed) [#/Area]3-4 [HPF]0-4FGrand Lake Joint Township District Memorial HospitalLeukocytes [#/volume] corrected for nucleated erythrocytes in Blood by Automated coun Ordered By: Jesus Gruberrow on 18-55-8499XWT corrected for nucl RBC Auto (Bld) [#/Vol]7.8 10*3/uL3.8-11.6FGrand Lake Joint Township District Memorial HospitalWBC corrected for nucl RBC Auto (Bld) [#/Vol]Leukocytes [#/volume] corrected for nucleated erythrocytes in Blood by Automated coun3.8-11.6FGrand Lake Joint Township District Memorial Hospital Leukocytes [#/volume] in Blood by Automated countOrdered By: Jesus Ayala on 13-20-1454UEU (Bld) [#/Vol]7.8 10*3/uLNormal3.8-11.6FGrand Lake Joint Township District Memorial HospitalComment on above:Performed By: #### CEA #### [facility] [address] [place] [address] [place] #### CA125 #### [facility] ,Lymphocytes Auto (Bld) [#/Vol]Ordered By: Jesus Ayala on 08-02-2024 Lymphocytes (Bld) [#/Vol]Lymphocytes [#/volume] in Blood by Automated count 1.00-4.8[facility] Medical CenterLymphocytes [#/volume] in Blood by Automated countOrdered By: Jesus Ayala on 19-90-7357Zbbocdsvcyk (Bld) [#/Vol] 1.2 10*3/uLNormal1.00-4.8[facility] Medical CenterComment on above: Performed By: #### CEA #### [facility] [address] [place] [address] [place] #### CA125 #### [facility] ,Lymphocytes/100 WBC Auto (Bld)Ordered By: Jesus Ayala on 08-02-2024 Lymphocytes/100 WBC (Bld)Lymphocytes/100 leukocytes in Blood by Automated count. [facility] Medical CenterLymphocytes/100 leukocytes in Blood by Automated countOrdered By: Jesus Ayala on 92-05-9548Jtlmzqvypws/100 WBC (Bld) 15.0 %Normal.[facility] Medical CenterComment on above:Performed By: #### CEA #### [facility] [address] [place] [address] [place] #### CA125 #### [facility] ,MCH Auto (RBC) [Entitic mass]Ordered By: Jesus Ayala on 95-39-3089WFO (RBC) [Entitic mass]MCH [Entitic mass] by Automated count24.7-34.3FLutheran [facility] [Entitic mass] by Automated countOrdered By: Jesus Ayala on 06-91-3478GRZ (RBC) [Entitic mass]28.3 ovJguirt29.7-34.3FGrand Lake Joint Township District Memorial HospitalComment on above:Performed By: #### CEA #### [facility] [address] [place] [address] [place] #### CA125 #### [facility] ,MCHC Auto (RBC) [Mass/Vol]Ordered By: Jesus Ayala on 62-23-4428SAOL (RBC) [Mass/Vol]33.5 g/dL32.0-35.0[facility]bleHC (RBC) [Mass/Vol]MCHC [Mass/volume] by Automated count32.0-35.0[facility] Health PrebleV Auto (RBC) [Entitic vol]Ordered By: Jesus Ayala on 71-08-4263ZQZ (RBC) [Entitic vol]MCV [Entitic volume] by Automated -806 [facility] PrebleV [Entitic volume] by Automated countOrdered By: Jesus Ayaal on 76-29-6093NOB (RBC) [Entitic vol]84.6 vIWaydyu41-229 [facility] CenterComment on above:Performed By: #### CEA #### [facility] [address] [place] [address] [place] #### CA125 #### [facility] ,Monocytes Auto (Bld) [#/Vol]Ordered By: Jesus Ayala on 79-05-5622Nkyefcjim (Bld) [#/Vol]Automated blood monocyte count0.0-0.8[facility] Medical CenterMonocytes/100 WBC Auto (Bld)Ordered By: Jesus Ayala on 08-02-2024 Monocytes/100 WBC (Bld)Automated monocyte %.[facility] Neutrophils Auto (Bld) [#/Vol]Ordered By: Jesus Ayala on 08-02-2024 Neutrophils (Bld) [#/Vol]Neutrophils [#/volume] in Blood by Automated count 1.8-7.7FGrand Lake Joint Township District Memorial HospitalNeutrophils [#/volume] in Blood by Automated countOrdered By: Jesus Ayala on 46-46-2541Jecnmbjvhaw (Bld) [#/Vol] 6.0 10*3/uLNormal1.8-7.7FGrand Lake Joint Township District Memorial HospitalComment on above: Performed By: #### CEA #### [address] #### CA125 #### [facility] ,Neutrophils/100 WBC Auto (Bld)Ordered By: Jesus Ayala on 08-02-2024 Neutrophils/100 WBC (Bld)Automated neutrophil %.[facility] CenterNitrite Test strip Ql (U)Ordered By: Jesus Ayala on 40-17-3031Mnaukus Ql (U)NegativeNegativeOhiohealth Southeastern Medical CenterNiite Ql (U)Nitrite [Presence] in Urine by Test stripNegativeOhiohealth Southeastern Medical CenterNo Panel InformationOrdered By: Jesus Ayala on 73-19-6881Kypmywwru GFR (CKD-EPI) > 60.0 mL/MinOhiohealth Southeastern Medical CenterPharmacy Creatinine Clearance (ChemN/AFGrand Lake Joint Township District Memorial HospitalProtein Electrophoresis M-SpikeNot observed g/dLNot ObservedOhiohealth Southeastern Medical CenterProtein Electrophoresis NoteComment.[facility] Medical CenterComment on above: Protein electrophoresis scan will follow via computer,mail, or gopherman delivery.Performed at: [facility] [address] [id number] Director: Gabriel Whitman PhD, Phone: [phone] Random Prot Electrophor NoteComment.[facility] Medical CenterComment on above: Protein electrophoresis scan will follow via computer,mail, or gopherman delivery. Nucleated erythrocytes [Presence] in Blood by Automated countOrdered By: Jesus Ayala on 06-28-4874Tmebedipf RBC Auto Ql (Bld)0.1 /100{WBC}0-0.5FGrand Lake Joint Township District Memorial HospitalNucleated RBC Auto Ql (Bld)Nucleated erythrocytes [Presence] in Blood by Automated count0-0.5FGrand Lake Joint Township District Memorial Hospital Platelet mean volume Auto (Bld) [Entitic vol]Ordered By: Jesus Ayala on 59-26-8277Zpllyldx mean volume (Bld) [Entitic vol]Platelet mean volume [Entitic volume] in Blood by Automated count6.3-10.7FGrand Lake Joint Township District Memorial Hospital Platelet mean volume [Entitic volume] in Blood by Automated countOrdered By: Jesus Ayala on 55-56-8105Gpgmhzsg mean volume (Bld) [Entitic vol]6.6 fLNormal 6.3-10.7FGrand Lake Joint Township District Memorial HospitalComment on above:Performed By: #### CEA #### [facility] [address] [place] [address] [place] #### CA125 #### [facility] ,Platelets Auto (Bld) [#/Vol]Ordered By: Jesus Ayala on 98-53-9676Nmhedntmu (Bld) [#/Vol]Platelets [#/volume] in Blood by Automated vtmmu544-505FquczawunOhiohealth Southeastern Medical CenterPlatelets [#/volume] in Blood by Automated countOrdered By: Jesus Ayala on 43-94-9588Xwqkwirtp (Bld) [#/Vol]439 10*3/eKSdoqon373-539 [facility] CenterComment on above:Performed By: #### CEA #### [facility] [address] [place] [address] [place] #### CA125 #### [facility] ,Potassium [Moles/volume] in Serum or PlasmaOrdered By: Jesus Ayala on 45-55-6793Udcporlnf [Moles/Vol]3.8 mmol/LNormal3.5-5.1FGrand Lake Joint Township District Memorial HospitalComment on above:Performed By: #### ESR, CK, ADDONUAPLUS, CMP, CRP, T4F, TSH3, CBC #### [place] [address] [place] #### ALDOLASE, CAMILLA SERUM, SPE, CAMILLA,URINE, UPE RAND #### [facility] ,Potassium [Moles/Vol]Potassium [Moles/volume] in Serum or Plasma3.5-5.1 [facility] CenterProtein Electro, Random Urineon 08-02-2024 Albumin, Urine36.1 %Normal.The Firsthealth Physician GroupComment on above: Performed By: #### CEA #### [place] [address] [place] #### CA125 #### [facility] ,Radsr-7-Qdxepguu, Urine4.1 %Normal.The Firsthealth Physician GroupComment on above:Performed By: #### CEA #### [place] [address] [place] #### CA125 #### [facility] ,Xvhnt-2-Dwadineh, Urine18.4 %Normal.The [facility]health Physician GroupComment on above:Performed By: #### CEA #### [place] [address] [place] #### CA125 #### [facility] ,Beta Globulin, Urine24.3 %Normal.The [facility]health Physician GroupComment on above: Performed By: #### CEA #### [place] [address] [place] #### CA125 #### [facility] ,Gamma Globulin, Urine17.1 %Normal.The [facility]health Physician GroupComment on above:Performed By: #### CEA #### [place] [address] [place] #### CA125 #### [facility] ,M-Maury %Not ObservedNormalNot ObservedThe Firsthealth Physician GroupComment on above:Performed By: #### CEA #### [address] #### CA125 #### [facility] ,Please Note:CommentNormal.The Firsthealth Physician GroupComment on above:Result Comment: Protein electrophoresis scan will follow via computer, mail, or gopherman delivery. PERFORMED BY: [place] [address] PATHOLOGIST SANDWICH MACHINE OPERATOR ANAHY MCKEE M.D.Performed By: #### CEA #### [address] #### CA125 #### [facility] ,Protein (U) [Mass/Vol]9.0 mg/dLNormalNot Estab.[facility] Comment on above:Performed By: #### CEA #### [address] #### CA125 #### [facility] ,Protein Electrophoresis, Serumon 47-62-1594Hsrrptl [Mass/Vol]3.9 g/dLNormal 2.9-4.4The [facility] Physician GroupComment on above:Performed By: #### CEA #### [address] #### CA125 #### [facility] ,Albumin/Globulin [Mass ratio]1.1 {ratio}Normal0.7-1.7The Firsthealth Physician GroupComment on above:Performed By: #### CEA #### [place] [address] [place] #### CA125 #### [facility] ,Voovn-7-Zfriajsl8.2 g/dLNormal0.0-0.4The Firsthealth Physician GroupComment on above:Performed By: #### CEA #### [place] [address] [place] #### CA125 #### [facility] ,Mchhx-0-Buyoknmj1.0 g/dLNormal0.4-1.0The Firsthealth Physician GroupComment on above:Performed By: #### CEA #### [facility] [address] [place] [address] #### CA125 #### [facility] ,Beta Globulin1.2 g/dLNormal0.7-1.3The Firsthealth Physician GroupComment on above:Performed By: #### CEA #### [facility] [address] [place] [address] [place] #### CA125 #### [facility] ,Gamma Globulin1.3 g/dLNormal0.4-1.8The Firsthealth Physician GroupComment on above:Performed By: #### CEA #### [place] [address] [place] #### CA125 #### [facility] ,Globulin (S) [Mass/Vol]3.6 g/dLNormal2.2-3.9[facility] Comment on above:Performed By: #### CEA #### [place] [address] [place] #### CA125 #### [facility] ,M-SpikeNot ObservedNormalNot ObservedThe Firsthealth Physician GroupComment on above:Performed By: #### CEA #### [place] [address] [place] #### CA125 #### [facility] ,SPE-NoteCommentNormal.The Firsthealth Physician GroupComment on above:Result Comment: Protein electrophoresis scan will follow via computer, mail, or gopherman delivery. Performed at: [facility] [address] [id number] Jde Developer: Gabriel Whitman PhD, Phone: [phone] PERFORMED BY: [place] [address] PATHOLOGIST SANDWICH MACHINE OPERATOR ANAHY MCKEE M.D.Performed By: #### CEA #### [place] [address] [place] #### CA125 #### [facility] ,Protein Test strip (U) [Mass/Vol]Ordered By: Jesus Ayala on 08-02-2024 Protein (U) [Mass/Vol]NegativeNegativeOhiohealth Southeastern Medical CenterProtein (U) [Mass/Vol]Protein [Mass/volume] in Urine by Test stripNegativeOhiohealth Southeastern Medical CenterProtein [Mass/volume] in Serum or PlasmaOrdered By: Jesus Ayala on 40-04-2588Juntzxs [Mass/Vol]7.5 g/dLNormal6.0-8.5FGrand Lake Joint Township District Memorial HospitalComment on above:Performed By: #### ESR, CK, ADDONUAPLUS, CMP, CRP, T4F, TSH3, CBC #### [address] #### ALDOLASE, CAMILLA SERUM, SPE, CAMILLA,URINE, UPE RAND #### [facility] ,Performed By: #### CEA #### [place] [address] [place] #### CA125 #### [facility] ,Protein [Mass/Vol]Protein [Mass/volume] in Serum or Plasma6.0-8.5FGrand Lake Joint Township District Memorial HospitalRBC Auto (Bld) [#/Vol]Ordered By: Jesus Ayala on 09-64-9110UNM (Bld) [#/Vol]Erythrocytes [#/volume] in Blood by Automated count 3.60-5.00[facility] Medical Centererum aldolase measurementOrdered By: Jesus Ayala on 63-03-8715TR biopsyCT biopsy3.3-10.3FGrand Lake Joint Township District Memorial HospitalComment on above:Performed at: - [facility] [id number] Director: Gabriel Whitman PhD, Phone: [phone] globulin measurement (mass/volume)Ordered By: Jesus Ayala on 08-02-2024 Globulin (S) [Mass/Vol]Serum globulin measurement (mass/volume)2.2-3.9[facility] Centererum globulin measurement by calculation (mass/volume) Ordered By: Jesus Ayala on 09-65-1686Gsjwfksr (S) [Mass/Vol]3.2 g/dLNormal [facility] CenterComment on above:Performed By: #### ESR, CK, ADDONUAPLUS, CMP, CRP, T4F, TSH3, CBC #### [facility] [address] #### ALDOLASE, CAMILLA SERUM, SPE, CAMILLA,URINE, UPE RAND #### [facility] ,Serum immunofixation electrophoresisOrdered By: Jesus Ayala on 08-02-2024 Serum ImmunofixationComment.[facility] Medical CenterComment on above:No monoclonality detected.Serum or plasma IgA measurement (mass/volume)Ordered By: Jesus Ayala on 94-97-6784HqX [Mass/Vol]IgA [Mass/volume] in Serum or Plasma 87-352[facility] Centererum or plasma IgG measurement (mass/volume)Ordered By: Jesus Ayala on 36-24-5790GvA [Mass/Vol]IgG [Mass/volume] in Serum or Tikdbt181-4415DpbcihirfUniversity Hospitals Geneva Medical Centererum or plasma IgM measurement (mass/volume)Ordered By: Jesus Ayala on 08-02-2024 IgM [Mass/Vol]IgM [Mass/volume] in Serum or Ejxlyu31-825OpmvzoifzOhiohealth Southeastern Medical CenterComment on above:Performed at: - [facility] [address] [id number] Director: Gabriel Whitman PhD, Phone: [phone] Serum or plasma albumin measurement (mass/volume)Ordered By: Jesus Ayala on 60-16-7660Mkebsuy [Mass/Vol]Albumin [Mass/volume] in Serum or Plasma2.9-4.4 [facility] Centererum or plasma albumin/globulin mass ratio Ordered By: Jesus Ayala on 30-67-7966Flhzvky/Globulin [Mass ratio]1.3 {ratio} NormalOhiohealth Southeastern Medical CenterComment on above:Performed By: #### ESR, CK, ADDONUAPLUS, CMP, CRP, T4F, TSH3, CBC #### [address] #### ALDOLASE, CAMILLA SERUM, SPE, CAMILLA,URINE, UPE RAND #### [facility] ,Albumin/Globulin [Mass ratio]Serum or plasma albumin/globulin mass ratio0.7-1.7 [facility] Centererum or plasma alpha 1 globulin measurement by electrophoresis (mass/volume)Ordered By: Jesus Ayala on 47-89-3767Fobnj 1 globulin Elph [Mass/Vol]Serum or plasma alpha 1 globulin measurement by electrophoresis (mass/volume)0.0-0.4FBarberton Citizens Hospitalerum or plasma alpha 2 globulin measurement by electrophoresis (mass/volume)Ordered By: Jesus Ayala on 67-39-4550Zhhtu 2 globulin Elph [Mass/Vol]Serum or plasma alpha 2 globulin measurement by electrophoresis (mass/volume)0.4-1.0[facility] Centererum or plasma anion gap determinationOrdered By: Jesus Ayala on 66-50-7074Fqgsk gap [Moles/Vol]12.2 mmol/LNormal6.0-15.0 [facility] CenterComment on above:Performed By: #### ESR, CK, ADDONUAPLUS, CMP, CRP, T4F, TSH3, CBC #### [place] [address] [place] #### ALDOLASE, CAMILLA SERUM, SPE, CAMILLA,URINE, UPE RAND #### [facility] ,Anion gap [Moles/Vol]Serum or plasma anion gap determination6.0-15.0[facility] Centererum or plasma beta globulin measurement by electrophoresis (mass/volume)Ordered By: Jesus Ayala on 87-24-8069Aagn globulin Elph [Mass/Vol]Serum or plasma beta globulin measurement by electrophoresis (mass/volume)0.7-1.3FBarberton Citizens Hospitalerum or plasma cancer antigen 125 (CA-125) measurement (units/volume)Ordered By: Blake Hinojosa on 20-24-7623Blwqls Ag 125 QnSerum or plasma cancer antigen 125 (CA-125) measurement (units/volume)0.0-38.1FGrand Lake Joint Township District Memorial HospitalComment on above:[employer] Electrochemiluminescence Immunoassay(ECLIA)Values obtained with different assay methods or kits cannotbe used interchangeably. Results cannot be interpreted asabsolute evidence of the presence or absence of malignantdisease.Performed at: [address] [id number] Director: Gabriel Whitman PhD, Phone: [phone] or plasma carcinoembryonic antigen measurement (mass/volume)Ordered By: Blake Hinojosa on 79-13-6292Khknoqwiprwyseui Ag [Mass/Vol]1.0 ng/mL0.0-3.0[facility] CenterComment on above:Serial tumor marker results determined by assays using different manufacturers or methods may not be comparable.[facility] cost accounting analyst and method:BridgEL DXI, 2 SITE IMMUNOENZYMATIC SANDWICH ASSAY.Serum or plasma gamma globulin measurement by electrophoresis (mass/volume)Ordered By: Jesus Ayala on 82-42-8005Whnow globulin Elph [Mass/Vol]Serum or plasma gamma globulin measurement by electrophoresis (mass/volume)0.4-1.8[facility] Medical Centerodium [Moles/volume] in Serum or PlasmaOrdered By: Jesus Ayala on 76-56-8360Ipkycs [Moles/Vol]138 mmol/SNrqssq232-430CjqmueyvdOhiohealth Southeastern Medical CenterComment on above:Performed By: #### ESR, CK, ADDONUAPLUS, CMP, CRP, T4F, TSH3, CBC #### [facility] [address] #### ALDOLASE, CAMILLA SERUM, SPE, CAMILLA,URINE, UPE RAND #### [facility] ,Sodium [Moles/Vol]Sodium [Moles/volume] in Serum or Maimco718-198ZvhikfihjUniversity Hospitals Geneva Medical Centerpecific gravity Test strip (U) [Rel density]Ordered By: Jesus Ayala on 03-57-0216Pguhbjzk gravity (U) [Rel density]1.0131.001-1.030 [facility] Medical Centerpecific gravity (U) [Rel density]Specific gravity of Urine by Test strip1.001-1.030[facility] Thyrotropin [Units/volume] in Serum or PlasmaOrdered By: Jesus Ayala on 87-92-5766OSD Qn2.77 m[IU]/LNormal0.45-5.33[facility] Comment on above:Result Comment: PERFORMED BY: [place] [address] PATHOLOGIST SANDWICH MACHINE OPERATOR ANAHY MCKEE M.D.Performed By: #### CEA #### [address] #### CA125 #### [facility] ,TSH QnThyrotropin [Units/volume] in Serum or Plasma0.45-5.33[facility] Medical CenterThyroxine (T4) free [Mass/volume] in Serum or PlasmaOrdered By: Jesus Ayala on 20-78-4709Qhum T4 [Mass/Vol]0.68 ng/dLNormal0.61-1.12[facility] Medical CenterComment on above:Performed By: #### ESR, CK, ADDONUAPLUS, CMP, CRP, T4F, TSH3, CBC #### [place] [address] [place] #### ALDOLASE, CAMILLA SERUM, SPE, CAMILLA,URINE, UPE RAND #### [facility] ,Free T4 [Mass/Vol]Thyroxine (T4) free [Mass/volume] in Serum or Plasma0.61-1.12 [facility] Medical CenterUrea nitrogen [Mass/volume] in Serum or Plasma Ordered By: Jesus Ayala on 99-93-6388Fnpm nitrogen [Mass/Vol]14 mg/dLNormal 04-29[facility] Medical CenterComment on above:Performed By: #### ESR, CK, ADDONUAPLUS, CMP, CRP, T4F, TSH3, CBC #### [address] [place] [address] [place] #### ALDOLASE, CAMILLA SERUM, SPE, CAMILLA,URINE, UPE RAND #### [facility] ,Urea nitrogen [Mass/Vol]Urea nitrogen [Mass/volume] in Serum or Plasma04-29 [facility] Medical CenterUrine alpha 1 globulin/total protein by electrophoresisOrdered By: Jesus Ayala on 73-94-0930Axmzv 1 globulin Elph (U) [Mass fraction]Urine alpha 1 globulin/total protein by electrophoresis. [facility] Medical CenterUrine alpha 2 globulin/total protein ratio by electrophoresisOrdered By: Jesus Ayala on 62-55-3570Wxfir 2 globulin Elph (U) [Mass fraction]Urine alpha 2 globulin/total protein ratio by electrophoresis. [facility] Medical CenterUrine appearanceOrdered By: Jesus Ayala on 65-21-7531Plzibprbph (U)ClearNormalClearOhiohealth Southeastern Medical CenterComment on above:Order Comment: Name Collection Type:: Clean-Voided MidstreamPerformed By: #### ESR, CK, ADDONUAPLUS, CMP, CRP, T4F, TSH3, CBC #### [facility] [address] [place] [address] [place] #### ALDOLASE, CAMILLA SERUM, SPE, CAMILLA,URINE, UPE RAND #### [facility] ,Urine bacteria detection by automated methodOrdered By: Jesus Ayala on 59-09-0229Bqjnfuvj Auto Ql (U)Bacteria [Presence] in Urine by AutomatedNone Seen [facility] Medical CenterUrine beta globulin measurement by electrophoresis (mass/volume)Ordered By: Jesus Ayala on 55-03-2369Izab globulin Elph (U) [Mass/Vol]Urine beta globulin measurement by electrophoresis (mass/volume).[facility] Medical CenterUrine protein measurement (mass/volume)Ordered By: Jesus Ayala on 35-35-3022Ltfenzx (U) [Mass/Vol] Protein [Mass/volume] in UrineNot Estab.[facility] Urobilinogen Test strip (U) [Mass/Vol]Ordered By: Jesus Ayala on 08-02-2024 Urobilinogen (U) [Mass/Vol]Normal mg/dLNormalOhiohealth Southeastern Medical Center Urobilinogen (U) [Mass/Vol]Urobilinogen [Mass/volume] in Urine by Test strip [facility] EastWBC Auto (Bld) [#/Vol]Ordered By: Jesus Ayala on 00-57-8096TSP (Bld) [#/Vol]Leukocytes [#/volume] in Blood by Automated count3.8-11.6FGrand Lake Joint Township District Memorial HospitalXR chest 2V*on 83-21-9018JJ chest 2V*[facility] Main [place] [address] [place] [address] XRay Report Signed Patient: Mandeep Puri MR#: [id number] 15 : 1975 Acct:[id number] Age/Sex: 48 / F ADM Date: 08/02/24 Loc: XD Room: Type: [facility] [address] Attending Dr: Jesus Ayala MD Copies to: [...] Trupti Adorno M.D.08/02/2024 4:18 PM Dictation Location: [place] [address] Transcribed By: [facility] 08/02/241617 Dictated By: Trupti Adorno MD 08/02/24 161 Signed By: 08/02/24 1618[facility] Physician GrouppH Test strip (U)Ordered By: Jesus Ayala on 09-24-8898pQ (U)pH of Urine by Test strip5.0-9.0[facility] CenterpH of Urine by Test stripOrdered By: Jesus Ayala on 22-48-8767aR (U)7.0 [pH]Normal5.0-9.0[facility] Medical CenterComment on above:Order Comment: Name Collection Type:: Clean-Voided MidstreamPerformed By: #### ESR, CK, ADDONUAPLUS, CMP, CRP, T4F, TSH3, CBC #### [facility] [address] #### ALDOLASE, CAMILLA SERUM, SPE, CAMILLA,URINE, UPE RAND #### [facility] ,ALL CBC WITH AUTO DIFFon 47-38-1581ODCXAIOPV ABSOLUTE BEPQ2FSNN Healthcare Basophils/100 WBC (Bld)0.5 %0.2 - 2.0 %[facility]OMS HealthcareEosinophils/100 WBC (Bld) 2.9 %0.9 - 7.0 %[facility]OM[facility] HealthcareErythrocyte distribution width (RBC) [Ratio]14.4 %11.0 - 15.0 %[facility] HealthcareHematocrit (Bld) [Volume fraction]35.2 %Low36.0 - 48.0 %[facility] HealthcareHemoglobin (Bld) [Mass/Vol]11.4 g/dLLow12.0 - 16.0 g/dLNONY HealthcareIMMATURE GRANULOCYTES ABS AUTO0.06HighNONY HealthcareImmature granulocytes/100 WBC (Bld)0.7 %High0.0 - 0.5 %[facility] HealthcareInterpretation and review of laboratory resultsAbnormalNONY HealthcareLYMPHOCYTES ABSOLUTE AUTO1.1 LowNONY HealthcareLymphocytes/100 WBC (Bld)14 %Low20.5 - 60.0 %[facility]OM Healthcare MCH (RBC) [Entitic mass]28 pg26.7 - 34.0 pgNONY HealthcareMCHC (RBC) [Mass/Vol] 32.4 g/dL29.9 - 35.2 g/dLNONY HealthcareMCV (RBC) [Entitic vol]86.5 fL81.0 - 99.0 fLNONY HealthcareMONOCYTES ABSOLUTE AUTO0.4NOMS HealthcareMonocytes/100 WBC (Bld)5 %1.7 - 12.0 %[facility] HealthcareNEUTROPHILS ABSOLUTE AUTO6.3[facility] Neutrophils/100 WBC (Bld)76.9 %High43.0 - 75.0 %[facility]OM[facility] HealthcarePlatelet mean volume (Bld) [Entitic vol]8.3 fLLow9.5 - 13.5 fLSSM Saint Mary's Health CenterTB EO #0.2NOMS [facility] [id number] [facility] RBC4.07LowNOUniversity Hospital WBC8.2NOMS HealthcareCLINISYNCNTexas County Memorial HospitalALL CBC WITH AUTO DIFFon 12-58-1747HECPHXATF ABSOLUTE AUTO0.0NONY HealthcareBasophils/100 WBC (Bld)0.4 %0.2 - 2.0 %NOM[facility] HealthcareEosinophils/100 WBC (Bld)2.4 %0.9 - 7.0 %[facility] Health CenterErythrocyte distribution width (RBC) [Ratio]15.5 %High11.0 - 15.0 %[facility] Health CenterHematocrit (Bld) [Volume fraction]37.7 %36.0 - 48.0 %[facility] CenterHemoglobin (Bld) [Mass/Vol]11.9 g/dLLow12.0 - 16.0 g/dLSSM Saint Mary's Health CenterIMMATURE GRANULOCYTES ABS AUTO0.03NOThe Rehabilitation InstituteImmature granulocytes/100 WBC (Bld)0.4 %0.0 - 0.5 %[facility] CenterInterpretation and review of laboratory resultsAbnormalSSM [facility] LYMPHOCYTES ABSOLUTE AUTO1.1LowNTexas County Memorial HospitalLymphocytes/100 WBC (Bld)14.8 %Low 20.5 - 60.0 %SouthPointe HospitalH (RBC) [Entitic mass]27.9 pg26.7 - 34.0 pgSouthPointe HospitalHC (RBC) [Mass/Vol]31.6 g/dL29.9 - 35.2 g/dLSouthPointe HospitalV (RBC) [Entitic vol]88.3 fL81.0 - 99.0 fLSSM Saint Mary's Health CenterMONOCYTES ABSOLUTE AUTO0.4NOMS HealthcareMonocytes/100 WBC (Bld)5.1 %1.7 - 12.0 %NOM HealthcareNEUTROPHILS ABSOLUTE AUTO5.7NOMS HealthcareNeutrophils/100 WBC (Bld)76.9 %High43.0 - 75.0 % [facility] HealthcarePlatelet mean volume (Bld) [Entitic vol]8.6 fLLow9.5 - 13.5 fL [facility] EO #0.2NOMS [facility] HospitalTBH [id number] [facility] RBC4.27 NOMPershing Memorial Hospital WBC7.5NOThe Rehabilitation InstituteCLINISYNCNVETERANS AFFA[facility] [place] [facility] [place] HealthcareALL CBC WITH AUTO DIFFon 89-10-5245OEKTJDSJE ABSOLUTE AUTO0.0NOThe Rehabilitation InstituteBasophils/100 WBC (Bld)0.5 %0.2 - 2.0 %NOMMercy Hospital JoplinEosinophils/100 WBC (Bld)3.0 %0.9 - 7.0 % [facility] Health CenterErythrocyte distribution width (RBC) [Ratio]15.9 %High11.0 - 15.0 %[facility] Health CenterHematocrit (Bld) [Volume fraction]36.3 %36.0 - 48.0 %[facility] CenterHemoglobin (Bld) [Mass/Vol]11.8 g/dLLow12.0 - 16.0 g/dLSSM [facility] IMMATURE GRANULOCYTES ABS AUTO0.04HighSSM Saint Mary's Health CenterImmature granulocytes/100 WBC (Bld)0.5 %0.0 - 0.5 %[facility] CenterInterpretation and review of laboratory resultsAbnormalNOThe Rehabilitation InstituteLYMPHOCYTES ABSOLUTE AUTO1.2NOMS [facility] Lymphocytes/100 WBC (Bld)14.0 %Low20.5 - 60.0 %SouthPointe HospitalH (RBC) [Entitic mass]28.0 pg26.7 - 34.0 pgSouthPointe HospitalHC (RBC) [Mass/Vol]32.5 g/dL29.9 - 35.2 g/dLSouthPointe HospitalV (RBC) [Entitic vol]86.0 fL81.0 - 99.0 fLSSM Saint Mary's Health CenterMONOCYTES ABSOLUTE AUTO0.5NOThe Rehabilitation InstituteMonocytes/100 WBC (Bld)5.7 % 1.7 - 12.0 %[facility] Health CenterNEUTROPHILS ABSOLUTE AUTO6.4NOMS [facility] Neutrophils/100 WBC (Bld)76.3 %High43.0 - 75.0 %[facility] Health CenterPlatelet mean volume (Bld) [Entitic vol]8.6 fLLow9.5 - 13.5 fLSSM Saint Mary's Health CenterTB EO #0.3NOMS [facility] HospitalTB [id number] [facility] RBC4.22NOMS HealthcareTBH WBC8.4NOMS HealthcareCLINISYNCNOMS HealthcareAlanine aminotransferase [Enzymatic activity/volume] in Serum or PlasmaOrdered By: Perri Ceja on 32-14-4946NDA [Catalytic activity/Vol]20 U/L7-52[facility] CenterAlbumin [Mass/volume] in Serum or Plasma by Bromocresol green (BCG) dye binding metho Ordered By: Perri Ceja on 99-32-2165Crmywib BCG dye [Mass/Vol]4.7 g/dL 3.5-5.7FGrand Lake Joint Township District Memorial HospitalAlkaline phosphatase [Enzymatic activity/volume] in Serum or PlasmaOrdered By: Perri Ceja on 35-02-9212HBS [Catalytic activity/Vol]96 U/U93-215JovmlbbzbOhiohealth Southeastern Medical CenterAspartate aminotransferase [Enzymatic activity/volume] in Serum or PlasmaOrdered By: Perri Ceja on 63-74-5056TWH [Catalytic activity/Vol]16 U/J97-97YaxysjhthOhiohealth Southeastern Medical CenterBasophils Auto (Bld) [#/Vol]Ordered By: Perri Ceja on 83-05-5195Cxtawhgrv (Bld) [#/Vol]0.1 10*3/uL0.0-0.2FGrand Lake Joint Township District Memorial HospitalBasophils/100 WBC Auto (Bld)Ordered By: Perri Ceja on 11-06-2023 Basophils/100 WBC (Bld)0.7 %.[facility] Medical CenterBilirubin.total [Mass/volume] in Serum or PlasmaOrdered By: Perri Ceja on 11-06-2023 Bilirubin [Mass/Vol]0.4 mg/dL0.3-1.0[facility] CenterC reactive protein [Mass/volume] in Serum or PlasmaOrdered By: Perri Ceja on 11-06-2023 CRP [Mass/Vol]2.0 mg/dL0.0-0.5FGrand Lake Joint Township District Memorial HospitalCalcium [Mass/volume] in Serum or PlasmaOrdered By: Perri Ceja on 39-19-0749Ggnnmgy [Mass/Vol]10.3 mg/dL8.6-10.3FGrand Lake Joint Township District Memorial HospitalCarbon dioxide, total [Moles/volume] in Serum or PlasmaOrdered By: Perri Ceja on 11-06-2023 CO2 [Moles/Vol]26.1 mmol/L21.0-31.0[facility] CenterChloride [Moles/volume] in Serum or PlasmaOrdered By: Perri Ceja on 11-06-2023 Chloride [Moles/Vol]104 mmol/P63-340DlziobopyOhiohealth Southeastern Medical CenterCreatine kinase [Enzymatic activity/volume] in Serum or PlasmaOrdered By: Perri Ceja on 94-62-8288BD [Catalytic activity/Vol]30 U/R24-226KmqqrofexOhiohealth Southeastern Medical CenterCreatinine [Mass/volume] in Serum or PlasmaOrdered By: Perri Ceja on 35-23-4258Lzefgjaecq [Mass/Vol]1.17 mg/dL0.60-1.20[facility] CenterEosinophils Auto (Bld) [#/Vol]Ordered By: Perri Ceja on 11-06-2023 Eosinophils (Bld) [#/Vol]0.3 10*3/uL0.0-0.45[facility] Eosinophils/100 WBC Auto (Bld)Ordered By: Perri Ceja on 11-06-2023 Eosinophils/100 WBC (Bld)3.0 %.[facility] Medical CenterErythrocyte distribution width Auto (RBC) [Ratio]Ordered By: Perri Ceja on 11-06-2023 Erythrocyte distribution width (RBC) [Ratio]15.3 %11.9-15.3FGrand Lake Joint Township District Memorial HospitalErythrocyte sedimentation rate by Photometric methodOrdered By: Perri Ceja on 88-42-3140HCV Photometric method (Bld) [Velocity]49 mm/hr0-19 [facility] Medical CenterGlobulin Calc (S) [Mass/Vol]Ordered By: Perri Ceja on 00-80-4708Rzsqjfbd (S) [Mass/Vol]3.0 g/dLOhiohealth Southeastern Medical CenterGlucose [Mass/volume] in Serum or PlasmaOrdered By: Perri Ceja on 95-87-2261Gsujpnd [Mass/Vol]91 mg/lF71-104WnjkxnnpcOhiohealth Southeastern Medical Center Comment on above:ADA recommended reference rangeRandom Glucose Reference Range is dependent on time and content of last meal. Glucose of more than 200 mg/dL in a nonstressed, ambulatory subject supports the diagnosisof Diabetes Mellitus. Hematocrit Auto (Bld) [Volume fraction]Ordered By: Perri Ceja on 11-06-2023 Hematocrit (Bld) [Volume fraction]38.9 %34.0-46.4FGrand Lake Joint Township District Memorial HospitalHemoglobin [Mass/volume] in BloodOrdered By: Perri Ceja on 11-06-2023 Hemoglobin (Bld) [Mass/Vol]13.1 g/dL11.8-15.4FGrand Lake Joint Township District Memorial Hospital Leukocytes [#/volume] corrected for nucleated erythrocytes in Blood by Automated counOrdered By: Perri Ceja on 45-72-8294XNP corrected for nucl RBC Auto (Bld) [#/Vol]8.8 10*3/uL3.8-11.6FGrand Lake Joint Township District Memorial HospitalLymphocytes Auto (Bld) [#/Vol]Ordered By: Perri Ceja on 84-26-2099Sfrsteyabsj (Bld) [#/Vol]1.5 10*3/uL1.00-4.8[facility] Medical CenterLymphocytes/100 WBC Auto (Bld)Ordered By: Perri Ceja on 34-91-1365Kcnjtbkhyat/100 WBC (Bld)17.6 %.[facility] Auto (RBC) [Entitic mass]Ordered By: Perri Ceja on 51-09-9260XCT (RBC) [Entitic mass]28.4 pg24.7-34.3FGrand Lake Joint Township District Memorial HospitalMCHC Auto (RBC) [Mass/Vol]Ordered By: Perri Ceja on 07-84-6353VVFD (RBC) [Mass/Vol]33.6 g/dL32.0-35.0[facility] CenterMCV Auto (RBC) [Entitic vol]Ordered By: Perri Ceja on 70-35-3390OHU (RBC) [Entitic vol]84.6 mA62-955IyfhorcfjOhiohealth Southeastern Medical CenterMonocytes Auto (Bld) [#/Vol]Ordered By: Perri Ceja on 09-76-1471Imkjwtmbk (Bld) [#/Vol]0.6 10*3/uL0.0-0.8[facility] CenterMonocytes/100 WBC Auto (Bld) Ordered By: Perri Ceja on 06-49-6265Yvcsfbwkm/100 WBC (Bld)6.6 %.[facility] Medical CenterNeutrophils Auto (Bld) [#/Vol]Ordered By: Perri Ceja on 47-85-2693Yzgekqtatjk (Bld) [#/Vol]6.3 10*3/uL1.8-7.7FGrand Lake Joint Township District Memorial HospitalNeutrophils/100 WBC Auto (Bld)Ordered By: Perri Ceja on 53-08-2288Eivqppkhufm/100 WBC (Bld)72.1 %.[facility] CenterNo Panel InformationOrdered By: Perri Ceja on 44-29-5994Mernaljqx GFR (CKD-EPI) 57.919 mL/MinOhiohealth Southeastern Medical CenterPharmacy Creatinine Clearance (ChemN/AFGrand Lake Joint Township District Memorial HospitalNucleated erythrocytes [Presence] in Blood by Automated countOrdered By: Perri Ceja on 55-34-8163Vsupypaca RBC Auto Ql (Bld)0.1 /100{WBC}0-0.5FGrand Lake Joint Township District Memorial HospitalPlatelet mean volume Auto (Bld) [Entitic vol]Ordered By: Perri Ceja on 07-47-7148Uuqaqqkv mean volume (Bld) [Entitic vol]6.9 fL6.3-10.7FGrand Lake Joint Township District Memorial Hospital Platelets Auto (Bld) [#/Vol]Ordered By: Perri Ceja on 17-84-4582Ketuggqpy (Bld) [#/Vol]393 10*3/hH412-253CweneaosiOhiohealth Southeastern Medical CenterPotassium [Moles/volume] in Serum or PlasmaOrdered By: Perri Ceja on 11-06-2023 Potassium [Moles/Vol]3.8 mmol/L3.5-5.1FGrand Lake Joint Township District Memorial HospitalProtein [Mass/volume] in Serum or PlasmaOrdered By: Perri Ceja on 79-29-1216Xnrecxu [Mass/Vol]7.7 g/dL6.4-8.9[facility] Medical CenterRBC Auto (Bld) [#/Vol] Ordered By: Perri Ceja on 16-67-8870KLR (Bld) [#/Vol]4.60 10*6/uL3.60-5.00 [facility] Centererum or plasma albumin/globulin mass ratio Ordered By: Perri Ceja on 28-74-6947Yowvtwq/Globulin [Mass ratio]1.6 {ratio} [facility] Centererum or plasma anion gap determinationOrdered By: Perri Ceja on 07-69-9696Qiljs gap [Moles/Vol]12.7 mmol/L6.0-15.0 [facility] Centerodium [Moles/volume] in Serum or PlasmaOrdered By: Perri Ceja on 50-21-8597Ertaco [Moles/Vol]139 mmol/B528-875WjwsqoqsmOhiohealth Southeastern Medical CenterUrea nitrogen [Mass/volume] in Serum or PlasmaOrdered By: Perri Ceja on 29-99-0789Fddy nitrogen [Mass/Vol]17 mg/dL7-25[facility] Medical CenterWBC Auto (Bld) [#/Vol]Ordered By: Perri Ceja on 40-11-1386ZCP (Bld) [#/Vol]8.8 10*3/uL3.8-11.6FGrand Lake Joint Township District Memorial Hospital PTH INTACTon 22-53-9598APO, Ozirfj725 pg/mLCritically cexk14-23Bhk [facility] HospitalComment on above:Performed By: #### MG, URIC, RENAL #### [facility] [address] [place] [address] [address] Hari PalmerFERRITINon 35-47-8435Afwicqeb [Mass/Vol]194.0 ng/mLCritically high6.2-137.0The [facility] HospitalComment on above:Performed By: #### MG, URIC, RENAL #### [facility] [address] [place] [address] [address] Hari PalmerHEMOGRAM AND PLATELon 83-90-1341Yqbxehyoyd (Bld) [Volume fraction]32.8 %Critically low36.0-48.0The [facility] HospitalComment on above: Performed By: #### MG, URIC, RENAL #### [facility] [address] [place] [address] [address] Hari Junioroglobin (Bld) [Mass/Vol]10.8 g/dLCritically low12.0-16.0The [facility] Hospitalment on above:Performed By: #### MG, URIC, RENAL #### [facility] [address] [place] [address] Dr. Hari Sargent (RBC) [Entitic mass]31.7 xlUkfdzs34.7-34.0The [facility] HospitalComment on above:Performed By: #### MG, URIC, RENAL #### [facility] [address] [place] [address] Dr. Hari [facility] (RBC) [Mass/Vol]32.9 g/dEYmxfxq09.9-35.2The [facility] on above:Performed By: #### MG, URIC, RENAL #### [facility] [address] [place] [address] Dr. Hari Sargent (RBC) [Entitic vol]96.2 zJIkajii43.0-99.0The [facility] on above:Performed By: #### MG, URIC, RENAL #### [facility] [address] [place] [address] Dr. Hari PalmerPLT297 103/nrSqgmvr708-977Baw [facility] on above: Performed By: #### MG, URIC, RENAL #### [facility] [address] [place] [address] Dr. Hari PalmerRBC3.41 106/ulCritically low4.20-5.40The [facility] on above:Performed By: #### MG, URIC, RENAL #### [facility] [address] [place] [address] Dr. Hari PalmerWBC7.1 103/ulNormal4.0-11.0The [facility] on above: Performed By: #### MG, URIC, RENAL #### [facility] [address] [place] [address] Dr. Hari Riley AND TIBCon 10-24-2022% RMWNOBSPTM05.0 %NormalThe [facility] HospitalComment on above:Performed By: #### MG, URIC, RENAL #### [facility] [address] [place] [address] Dr. Hari Sharman [Mass/Vol]48.0 ug/dLCritically low50.0-170.0The [facility] HospitalComment on above:Performed By: #### MG, URIC, RENAL #### [facility] [address] [place] [address] Dr. Hari PalmerTIBC JLRTAQ582.0 ug/dAZbprtb565.0-450.0[facility] Comment on above:Performed By: #### MG, URIC, RENAL #### [facility] [address] [place] [address] Dr. Hari PalmerMAGNESIUMon 74-59-2201Exlykhapo [Mass/Vol]2.0 mg/dLNormal1.8-2.4 The [facility] HospitalComment on above:Performed By: #### MG, URIC, RENAL #### [facility] [address] [place] [address] Dr. Hari MorenoAL FUNCTION PANELon 02-52-8671Iddwkqt [Mass/Vol]3.6 g/dLNormal 3.4-5.0The [facility] HospitalComment on above:Performed By: #### MG, URIC, RENAL #### [facility] [address] [place] [address] Dr. Hari PalmerCalcium [Mass/Vol]8.7 mg/dLNormal8.5-10.1The [facility] Comment on above:Performed By: #### MG, URIC, RENAL #### [facility] [address] [place] [address] Dr. Hari PalmerChloride [Moles/Vol]104 mmol/HTjusav32-195Rfe [facility] Comment on above:Performed By: #### MG, URIC, RENAL #### [facility] [address] [place] [address] Dr. Hari PalmerCO2 [Moles/Vol]21.8 mmol/XOmudam87.0-32.0The [facility] Comment on above:Performed By: #### MG, URIC, RENAL #### [facility] [address] [place] [address] Dr. Hari PalmerCreatinine [Mass/Vol]3.83 mg/dLCritically high0.55-1.02The [facility] HospitalComment on above:Performed By: #### MG, URIC, RENAL #### [facility] [address] [place] [address] Dr. Hari BrandtGFR-AF FDDGBKBH07 mL/min/1.84h6Ielxwzcvck low>=60The [facility] HospitalComment on above:Performed By: #### MG, URIC, RENAL #### [facility] [address] [place] [address] Dr. Hari BrandtGFR-NON AF GKMTOOQD34 mL/min/1.84o6Wsuxvgikkj low>=60The [facility] HospitalComment on above:Performed By: #### MG, URIC, RENAL #### [facility] [address] [place] [address] Dr. Hari PalmerGlucose [Mass/Vol]108 mg/dLCritically pgwx20-834Bir [facility] HospitalComment on above:Performed By: #### MG, URIC, RENAL #### [facility] [address] [place] [address] Dr. Hari PalmerPhosphate [Mass/Vol]5.4 mg/dLCritically high2.6-4.7The [facility] HospitalComment on above:Performed By: #### MG, URIC, RENAL #### [facility] [address] [place] [address] Dr. Hari PalmerPotassium [Moles/Vol]3.9 mmol/LNormal3.5-5.1[facility] Comment on above:Performed By: #### MG, URIC, RENAL #### [facility] [address] [place] [address] Dr. Hari PalmerSodium [Moles/Vol]137 mmol/HJcvnpo988-334Fej [facility] Comment on above:Performed By: #### MG, URIC, RENAL #### [facility] [address] [place] [address] Dr. Hari Palma nitrogen [Mass/Vol]47.0 mg/dLCritically high7.0-18.0The [facility] HospitalComment on above:Performed By: #### MG, URIC, RENAL #### [facility] [address] [place] [address] Dr. Hari PalmerURIC ACID SERUMon 82-76-3681Avqem [Mass/Vol]6.3 mg/dLCritically high2.6-6.0The [facility] HospitalComment on above:Performed By: #### MG, URIC, RENAL #### [facility] [address] [place] [address] Dr. Hari Hadley T PROTEIN CREAT RATIOon 08-28-4223Pjiuqnb (U) [Mass/Vol] 29.7 mg/dLCritically high<=12.0The [facility] HospitalComment on above:Performed By: #### MG, URIC, RENAL #### [facility] [address] [place] [address] Dr. Hari Prince PROT CREAT RAT0.56NoPremier Health Miami Valley Hospital NorthComment on above: Performed By: #### MG, URIC, RENAL #### [facility] [address] [place] [address] Dr. Hari Hadley CREAT53.35 mg/qQLnasbr90.00-300.00[facility] Comment on above:Performed By: #### MG, URIC, RENAL #### [facility] [address] [place] [address] Dr. Hari PalmerVITAMIN D 25 OHon 34-32-0403VVH D 25-OH38.8 ng/mLNormalThe [facility] HospitalComment on above:Performed By: #### MG, URIC, RENAL #### [facility] [address] [place] [address] Dr. Hari Peng R[place]ES[place] [facility] HospitalComment on above: Result Comment: <20 ng/mL Vit D deficient 20 - <30 ng/mL Vit D insufficient 30 - 100 ng/mL Vit D sufficient >100 ng/mL Potential ToxicityPerformed By: #### MG, URIC, RENAL #### [facility] [address] [address] [address] Hari PalmerAlbumin [Mass/volume] in Serum or PlasmaOrdered By: Stanley Forman on 58-57-4712Sfmltnp [Mass/Vol]3.9 g/dL3.2-5.5FGrand Lake Joint Township District Memorial Hospital Basophils Auto (Bld) [#/Vol]Ordered By: Stanley Forman on 92-24-8297Wmbregwaw (Bld) [#/Vol]0.1 10*3/uL0.0-0.2FGrand Lake Joint Township District Memorial HospitalBasophils/100 WBC Auto (Bld)Ordered By: Stanely Forman on 50-59-1104Sajonbwxo/100 WBC (Bld)0.7 % .[facility] CenterBlood hemoglobin measurement (mass/volume) Ordered By: Stanley Forman on 11-21-2730Rzhrlxaxil (Bld) [Mass/Vol]10.8 g/dL 11.8-15.4FGrand Lake Joint Township District Memorial HospitalBlood leukocytes automated count (number/volume)Ordered By: Stanley Forman on 46-51-5075ZKG (Bld) [#/Vol]11.8 10*3/uL4.5-11.0[facility] CenterC reactive protein [Mass/volume] in Serum or PlasmaOrdered By: Stanley Forman on 19-87-8521QEU [Mass/Vol]5.2 mg/dL 0.0-1.0[facility] CenterCreatinine and Glomerular filtration rate.predicted panel (S/P/Bld)Ordered By: Stanley Forman on 95-19-1140Wnwoyfyriy [Mass/Vol]4.49 mg/dL0.44-1.03[facility] CenterEosinophils Auto (Bld) [#/Vol]Ordered By: Stanley Forman on 14-19-8081Ueqmlbortyj (Bld) [#/Vol]0.4 10*3/uL0.0-0.45[facility] CenterEosinophils/100 WBC Auto (Bld) Ordered By: Stanley Forman on 05-14-5634Dzghbatnobr/100 WBC (Bld)3.2 %.[facility] Medical CenterErythrocyte distribution width Auto (RBC) [Ratio]Ordered By: Stanley Forman on 30-74-3251Bdhvaycvmch distribution width (RBC) [Ratio]14.0 % 11.9-15.3FGrand Lake Joint Township District Memorial HospitalErythrocyte sedimentation rate by Photometric methodOrdered By: Stanley Forman on 91-23-2629QYP Photometric method (Bld) [Velocity]67 mm/hr0-19[facility] CenterEstimated glomerular filtration rate (GFR) non- AmericanOrdered By: Stanley Forman on 58-32-8466DCB/1.73 sq M.predicted among non-blacks MDRD (S/P/Bld) [Vol rate/Area]11 mL/MinOhiohealth [facility] CenterGlobulin Calc (S) [Mass/Vol] Ordered By: Stanley Forman on 41-59-0794Hqrfmpsr (S) [Mass/Vol]3.5 g/dLOhiohealth Southeastern Medical CenterHematocrit Auto (Bld) [Volume fraction]Ordered By: Stanley Forman on 56-23-6660Avvxfnalrb (Bld) [Volume fraction]33.1 %34.0-46.4FGrand Lake Joint Township District Memorial HospitalLaboratory - Hematology and Cell countsOrdered By: Stanley Forman on 01-87-1757Jtvoyjvgg RBC/100 WBC (Bld) [Ratio]0.0 %0-0.5FGrand Lake Joint Township District Memorial HospitalLymphocytes Auto (Bld) [#/Vol]Ordered By: Stanley Forman on 48-20-3977Ygoktkryybr (Bld) [#/Vol]1.5 10*3/uL1.00-4.8[facility] CenterLymphocytes/100 WBC Auto (Bld)Ordered By: Stanley Forman on 19-92-9416Gnhbrmlenzv/100 WBC (Bld)12.3 %.[facility] Auto (RBC) [Entitic mass]Ordered By: Stanley Forman on 14-71-6678SNE (RBC) [Entitic mass]31.1 pg24.7-34.3FKing's Daughters Medical Center [place]HC Auto (RBC) [Mass/Vol]Ordered By: Stanley Forman on 15-70-3765XBGA (RBC) [Mass/Vol]32.5 g/dL 32.0-35.0[facility] CenterMCV Auto (RBC) [Entitic vol]Ordered By: Stnaley Forman on 38-25-3697YQA (RBC) [Entitic vol]95.6 yH19-090YohhovhtkOhiohealth Southeastern Medical CenterMonocytes Auto (Bld) [#/Vol]Ordered By: Stanley Forman on 39-87-1724Fqxqafzzx (Bld) [#/Vol]0.5 10*3/uL0.0-0.8[facility] CenterMonocytes/100 WBC Auto (Bld)Ordered By: Stanley Forman on 06-20-2022 Monocytes/100 WBC (Bld)4.1 %.[facility] CenterNeutrophils Auto (Bld) [#/Vol]Ordered By: Stanley Forman on 13-89-5115Dsynldtlshm (Bld) [#/Vol]9.4 10*3/uL1.8-7.7FGrand Lake Joint Township District Memorial HospitalNeutrophils/100 WBC Auto (Bld) Ordered By: Stanley Forman on 77-07-5020Ozprwceesgs/100 WBC (Bld)79.7 %.[facility] CenterNo Panel InformationOrdered By: Stanley Forman on 74-85-8398Tfnuuhvqz GFR ()13 mL/MinOhiohealth Southeastern Medical CenterComment on above:GFR estimated reference range: According to KDOQI guidelines, <60 ml/min/1.73m2 is sufficient todiagnose a patient with chronic kidney disease.Pharmacy Creatinine Clearance (Chem16.48[facility] Medical CenterPlatelet mean volume Auto (Bld) [Entitic vol]Ordered By: Stanley Forman on 28-58-2232Etfrgmrh mean volume (Bld) [Entitic vol]7.0 fL6.3-10.7 [facility] CenterPlatelets Auto (Bld) [#/Vol]Ordered By: Stanley Forman on 85-25-1917Yazfirpil (Bld) [#/Vol]287 10*3/tC977-916CubgljdepOhiohealth Southeastern Medical CenterProtein [Mass/volume] in Serum or PlasmaOrdered By: Stanley Forman on 96-79-1967Yyvzhbm [Mass/Vol]7.4 g/dL6.1-7.9[facility] RBC Auto (Bld) [#/Vol]Ordered By: Stanley Forman on 13-26-2556GFG (Bld) [#/Vol] 3.46 10*6/uL3.60-5.00[facility] Centererum or plasma alanine aminotransferase measurement without P-5'-P (enzymatic activiOrdered By: Stanley Forman on 03-27-6151YCQ No additional P-5'-P [Catalytic activity/Vol]11 U/L10-60 [facility] Centererum or plasma albumin/globulin mass ratio Ordered By: Stanley Forman on 85-72-1155Psiqibc/Globulin [Mass ratio]1.1 {ratio} [facility] Centererum or plasma alkaline phosphatase measurement (enzymatic activity/volume)Ordered By: Stanley Forman on 31-27-6737HWG [Catalytic activity/Vol]82 U/L21-37UkjgsxzfpUniversity Hospitals Geneva Medical Centererum or plasma anion gap determinationOrdered By: Stanley Forman on 13-03-6762Ukcra gap [Moles/Vol]16.2 mmol/L6.0-15.0[facility] Centererum or plasma aspartate aminotransferase measurement (enzymatic activity/volume)Ordered By: Stanley Forman on 74-34-4599TRJ [Catalytic activity/Vol]15 U/S61-37TyibpwtemUniversity Hospitals Geneva Medical Centererum or plasma calcium measurement (mass/volume)Ordered By: Stanley Forman on 07-97-3733Qtcfbhw [Mass/Vol]9.3 mg/dL8.2-10.2FBarberton Citizens Hospitalerum or plasma chloride measurement (moles/volume) Ordered By: Stanley Forman on 98-81-2390Nojmjiqb [Moles/Vol]103 mmol/L95-114 [facility] Centererum or plasma glucose measurement (mass/volume)Ordered By: Stanley Forman on 63-31-8694Hmlgzea [Mass/Vol]75 mg/dL 70-100Ohio[facility] CenterComment on above:ADA recommended reference rangeRandom Glucose Reference Range is dependent on time and content of last meal. Glucose of more than 200 mg/dL in a nonstressed, ambulatory subject supports the diagnosisof Diabetes Mellitus.Serum or plasma potassium measurement (moles/volume)Ordered By: Stanley Forman on 92-92-6184Ivrblykkl [Moles/Vol]4.3 mmol/L3.5-5.1FBarberton Citizens Hospitalerum or plasma sodium measurement (moles/volume)Ordered By: Stanley Forman on 95-07-3028Sstkds [Moles/Vol]135 mmol/A976-934KkwfjinvhUniversity Hospitals Geneva Medical Centererum or plasma total bilirubin measurement (mass/volume)Ordered By: Stanley Forman on 06-20-2022 Bilirubin [Mass/Vol]0.3 mg/dL0.3-1.2FBarberton Citizens Hospitalerum or plasma total carbon dioxide measurement (moles/volume)Ordered By: Stanley Forman on 84-00-8034WO9 [Moles/Vol]20.1 mmol/L22.0-30.0[facility] Centererum or plasma urea nitrogen measurement (mass/volume)Ordered By: Stanley Forman on 69-24-0274Gfke nitrogen [Mass/Vol]42 mg/dL9-23[facility] CenterCOVID-19 Positive/NegativeOrdered By: Jesus Parham on 60-03-6625DFMC-CoV-2 (COVID-19) N gene AMBERLY+probe Ql (Resp)NegativeNegative [facility] CenterComment on above:Testing for SARS-CoV-2 by RT-PCR This test was developed and its performance characteristics determined by [employer] ([employer]) and validated at the [facility]. This test has not been [...] of time the declaration that circumstances exist ju stifying the authorization of the emergency use of in vitro diagnostic tests for detection of SARS-CoV-2 virus and/or diagnosis of COVID-19 infection under section 564(b)(1) of the Act, 21 U.S.C. 360bbb-3(b)(1), unless the authorization is terminated or revoked sooner.Testing for SARS-CoV-2 by RT-PCRThis test was developed and its performance characteristics determined by [employer] ([employer]) and validated at the [facility]. This test has not been [...] unless the authorization is terminated or revoked sooner.CA 125on 60-10-8929Xzukrz Antigen (CA) 27400.8 U/mLNormal 0.0-38.1The [facility] HospitalComment on above:Result Comment: [employer] Electrochemiluminescence Immunoassay (ECLIA) . Values obtained with different assay methods or kits cannot be used interchangeably. Results cannot be interpreted as absolute evidence of the presence or absence of malignant disease.Performed By: #### MG, URIC, RENAL #### [facility] [address] [place] [address] Dr. Hari Rodriguez 16-57-3030EPL3.9 ng/mLNormal0.0-4.7The [facility] Comment on above:Result Comment: Nonsmokers <3.9 Smokers <5.6 . [employer] Electrochemiluminescence Immunoassay (ECLIA) . Values obtained with different assay methods or kits cannot be used interchangeably. Results cannot be interpreted as absolute evidence of the presence or absence of malignant disease.Performed By: #### CEA. #### [facility] [address] [place], [place] [address] Dr. Hari PalmerBasophibrendan Auto (Bld) [#/Vol]Ordered By: Jesus Parham on 37-07-0449Uibdxuuqy (Bld) [#/Vol]0.0 10*3/uL0.0-0.2FGrand Lake Joint Township District Memorial HospitalBasophils/100 WBC Auto (Bld)Ordered By: Jesus Parham on 06-05-2022 Basophils/100 WBC (Bld)0.3 %.[facility] CenterBlood hemoglobin measurement (mass/volume)Ordered By: Jesus Parham on 31-64-2416Waiqsfxkuz (Bld) [Mass/Vol]12.0 g/dL11.8-15.4FGrand Lake Joint Township District Memorial HospitalBlood leukocytes automated count (number/volume)Ordered By: Jesus Parham on 64-59-4827WGB (Bld) [#/Vol]8.5 10*3/uL4.5-11.0[facility] Creatinine and Glomerular filtration rate.predicted panel (S/P/Bld)Ordered By: Jesus Parham on 81-67-4264Xjklxqfkxh [Mass/Vol]3.52 mg/dL0.44-1.03 [facility] CenterEosinophils Auto (Bld) [#/Vol]Ordered By: Jesus Parham on 42-69-5325Wlvntpanqha (Bld) [#/Vol]0.2 10*3/uL0.0-0.45 [facility] CenterEosinophils/100 WBC Auto (Bld)Ordered By: Jesus Parham on 40-14-5703Lfjpearbvbo/100 WBC (Bld)2.7 %.[facility] CenterErythrocyte distribution width Auto (RBC) [Ratio]Ordered By: Jesus Parham on 07-52-4343Obhkelvcyns distribution width (RBC) [Ratio] 14.2 %11.9-15.3FGrand Lake Joint Township District Memorial HospitalEstimated glomerular filtration rate (GFR) non- AmericanOrdered By: Jesus Parham on 06-05-2022 GFR/1.73 sq M.predicted among non-blacks MDRD (S/P/Bld) [Vol rate/Area]14 mL/Min [facility] CenterHematocrit Auto (Bld) [Volume fraction]Ordered By: Jesus Parham on 91-67-6880Wbbprafkoz (Bld) [Volume fraction]35.8 % 34.0-46.4FGrand Lake Joint Township District Memorial HospitalLaboratory - Hematology and Cell countsOrdered By: Jesus Parham on 66-28-0936Yfbcmxjip RBC/100 WBC (Bld) [Ratio]0.1 %0-0.5FGrand Lake Joint Township District Memorial HospitalLymphocytes Auto (Bld) [#/Vol] Ordered By: Jesus Parham on 78-08-4203Yxqzgikvzkg (Bld) [#/Vol]1.6 10*3/uL 1.00-4.8[facility] CenterLymphocytes/100 WBC Auto (Bld)Ordered By: Jesus Parham on 53-74-9531Raxwgkgwirv/100 WBC (Bld)19.3 %.[facility] Auto (RBC) [Entitic mass]Ordered By: Jesus Parham on 93-53-4580YPX (RBC) [Entitic mass]31.5 pg24.7-34.3FGrand Lake Joint Township District Memorial HospitalMCHC Auto (RBC) [Mass/Vol]Ordered By: Jesus Parham on 68-85-8650BRBT (RBC) [Mass/Vol]33.3 g/dL32.0-35.0[facility] CenterMCV Auto (RBC) [Entitic vol]Ordered By: Jesus Parham on 06-05-2022 MCV (RBC) [Entitic vol]94.4 hA59-939KzdztfybzOhiohealth Southeastern Medical CenterMonocytes Auto (Bld) [#/Vol]Ordered By: Jesus Parham on 44-45-0554Klroebctq (Bld) [#/Vol]0.3 10*3/uL0.0-0.8[facility] CenterMonocytes/100 WBC Auto (Bld)Ordered By: Jesus Parham on 38-42-1078Dcwmeodbl/100 WBC (Bld)3.9 %. [facility] CenterNeutrophils Auto (Bld) [#/Vol]Ordered By: Jesus Parham on 29-48-7903Nfaydzukpki (Bld) [#/Vol]6.2 10*3/uL1.8-7.7 [facility] CenterNeutrophils/100 WBC Auto (Bld)Ordered By: Jesus Parham on 16-33-8819Ecfajxrlhyh/100 WBC (Bld)73.8 %.[facility] CenterNo Panel InformationOrdered By: Jesus Parham on 73-63-0465Vvixgdumn GFR ()17 mL/MinOhiohealth Southeastern Medical CenterComment on above:GFR estimated reference range: According to KDOQI guidelines, <60 ml/min/1.73m2 is sufficient todiagnose a patient with chronic kidney disease.Pharmacy Creatinine Clearance (ChemN/AFGrand Lake Joint Township District Memorial HospitalPlatelet mean volume Auto (Bld) [Entitic vol]Ordered By: Jesus Parham on 26-66-8536Osbwfvoq mean volume (Bld) [Entitic vol]7.3 fL6.3-10.7 [facility] CenterPlatelets Auto (Bld) [#/Vol]Ordered By: Jesus Parham on 36-36-8117Qplbujhik (Bld) [#/Vol]312 10*3/qS487-180NilmgthshOhiohealth Southeastern Medical CenterRBC Auto (Bld) [#/Vol]Ordered By: Jesus Parham on 90-80-1825OGE (Bld) [#/Vol]3.80 10*6/uL3.60-5.00[facility] Centererum or plasma anion gap determinationOrdered By: Jesus Parham on 68-13-7672Isttv gap [Moles/Vol]15.1 mmol/L6.0-15.0[facility] Centererum or plasma calcium measurement (mass/volume)Ordered By: Jesus Parham on 54-18-9907Lnjbcfb [Mass/Vol]9.5 mg/dL8.2-10.2FBarberton Citizens Hospitalerum or plasma chloride measurement (moles/volume)Ordered By: Jesus Parham on 33-17-7024Uiiozsbo [Moles/Vol]106 mmol/N34-773QglidbcdlUniversity Hospitals Geneva Medical Centererum or plasma glucose measurement (mass/volume)Ordered By: Jesus Parham on 42-19-8480Wtwytdq [Mass/Vol]91 mg/lT92-100IsmecehuuOhiohealth Southeastern Medical CenterComment on above:ADA recommended reference range Random Glucose Reference Range is dependent on time and content of last meal. Glucose of more than 200 mg/dL in a nonstressed, ambulatory subject supports the diagnosis of Diabetes Mellitus.ADA recommended reference rangeRandom Glucose Reference Range is dependent on time and content of last meal. Glucose of more than 200 mg/dL in a nonstressed, ambulatory subject supports the diagnosisof Diabetes Mellitus.Serum or plasma potassium measurement (moles/volume)Ordered By: Jesus Parham on 97-78-8713Rxftaexfu [Moles/Vol]4.4 mmol/L3.5-5.1 [facility] Centererum or plasma sodium measurement (moles/volume)Ordered By: Jesus Parham on 79-72-7621Ejphas [Moles/Vol]137 mmol/P828-397PlkvumgjkUniversity Hospitals Geneva Medical Centererum or plasma total carbon dioxide measurement (moles/volume)Ordered By: Jesus Parham on 06-05-2022 CO2 [Moles/Vol]20.3 mmol/L22.0-30.0[facility] Centererum or plasma urea nitrogen measurement (mass/volume)Ordered By: Jesus Parham on 87-62-9776Vydo nitrogen [Mass/Vol]38 mg/dL9-23[facility] PTH INTACTon 26-52-0619DPU, Fxwxgq762 pg/mLCritically hdom82-43Lat [facility] HospitalComment on above:Performed By: #### MG, URIC, RENAL #### [facility] [address] [address] [address] Hari Peng 25-[place] LABCORPon 25-95-7891Rbslxuj D, 25-Cehuwnq12.6 ng/mL Amwmvk56.0-100.0The [facility] HospitalComment on above:Result Comment: Vitamin D deficiency has been defined by the [place] of [employer] and an Endocrine Society practice guideline as a level of serum 25-OH vitamin D less than 20 ng/mL (1,2). The Endocrine Society went on to further define vitamin D insufficiency as a level between 21 and 29 ng/mL (2). 1. IOM ([place] [employer]). 2010. Dietary reference intakes for calcium and D. [place]: The National Academies Press. 2. Chantel STEINER, Landen BURGOS, Eliseo CARDOZA, et al. Evaluation, treatment, and prevention of vitamin D deficiency: an Endocrine Society clinical practice guideline. JCEM. 2010; 96(7):1911-30.Performed By: #### MG, URIC, RENAL #### [facility] [address] [place] [address] Dr. Hari Arteaga AND RH TYPEon 80-81-6415FVK and Rh group Nom (Bld)ABO Rh Typing O Rh PositiveNormalThe [facility] HospitalComment on above:Performed By: #### MG, URIC, RENAL #### [facility] [address] [place] [address] Dr. Hari PalmerFERRITINon 90-15-2556Akxyomcn [Mass/Vol]273.0 ng/mLCritically high6.2-137.0The [facility] HospitalComment on above:Performed By: #### MG, URIC, RENAL #### [facility] [address] [place] [address] Dr. Hari PalmerHEMOGRAM AND PLATELon 50-02-1008Crmdcqmuip (Bld) [Volume fraction]33.9 %Critically low36.0-48.0The [facility] HospitalComment on above: Performed By: #### MG, URIC, RENAL #### [facility] [address] [place] [address] Dr. Hari PalmerHemoglobin (Bld) [Mass/Vol]11.4 g/dLCritically low12.0-16.0The [facility] HospitalComment on above:Performed By: #### MG, URIC, RENAL #### [facility] [address] [place] [address] Dr. Hari SargentH (RBC) [Entitic mass]31.7 jwYldjbz18.7-34.0The [facility] HospitalComment on above:Performed By: #### MG, URIC, RENAL #### [facility] [address] [place] [address] Dr. Hari Sargent (RBC) [Mass/Vol]33.6 g/pQDvxycm60.9-35.2The [facility] HospitalComment on above:Performed By: #### MG, URIC, RENAL #### [facility] [address] [address] [address] Hari Diamond (RBC) [Entitic vol]94.2 qQQelsmx53.0-99.0The [facility] HospitalComment on above:Performed By: #### MG, URIC, RENAL #### [facility] [address] [place] [address] Dr. Hari PalmerPLT333 103/xvNjlenx038-191Neg [facility] HospitalComment on above: Performed By: #### MG, URIC, RENAL #### [facility] [address] [place] [address] Dr. Hari PalmerRBC3.60 106/ulCritically low4.20-5.40The [facility] HospitalComment on above:Performed By: #### MG, URIC, RENAL #### [facility] [address] [place] [address] Dr. Hari PalmreWBC9.7 103/ulNormal4.0-11.0The [facility] HospitalComment on above: Performed By: #### MG, URIC, RENAL #### [facility] [address] [place] [address] Dr. Hari Riley AND TIBCon 04-27-2022% DVBERYLMSI32.1 %NormalThe [facility] HospitalComment on above:Performed By: #### MG, URIC, RENAL #### [facility] [address] [place] [address] Dr. Hari Riley [Mass/Vol]57.0 ug/zYEvxlvv31.0-170.0[facility] Comment on above:Performed By: #### MG, URIC, RENAL #### [facility] [address] [place] [address] Dr. Hari EstradaC SOEUWX550.0 ug/jTFklsjz278.0-450.0[facility] Comment on above:Performed By: #### MG, URIC, RENAL #### [facility] [address] [place] [address] Dr. Hari CardonaGNESIUMon 13-94-7462Fnodqnpvw [Mass/Vol]2.1 mg/dLNormal1.8-2.4 The [facility] HospitalComment on above:Performed By: #### RENAL, URIC, MG #### [facility] [address] [address] [address] Hari PalmerRENAL FUNCTION PANELon 90-60-4481Xzwcixz [Mass/Vol]3.6 g/dLNormal 3.4-5.0The [facility] HospitalComment on above:Performed By: #### RENAL, URIC, MG #### [facility] [address] [address] [address] Hari PalmerCalcium [Mass/Vol]9.0 mg/dLNormal8.5-10.1The [facility] Comment on above:Performed By: #### RENAL, URIC, MG #### [facility] [address] [place] [address] Dr. Hari PalmerChloride [Moles/Vol]104 mmol/UCepivz84-526Uer [facility] Comment on above:Performed By: #### RENAL, URIC, MG #### [facility] [address] [address] [address] Hari PalmerCO2 [Moles/Vol]23.0 mmol/TUqcqlk19.0-32.0The [facility] Comment on above:Performed By: #### RENAL, URIC, MG #### [facility] [address] [address] [address] Hari PalmerCreatinine [Mass/Vol]3.38 mg/dLCritically high0.55-1.02The [facility] HospitalComment on above:Performed By: #### RENAL, URIC, MG #### [facility] [address] [address] [address] Noriega ChangEGFR-AF CXBUOLHX87 mL/min/1.89d3Ljrgtssnjn low>=60The [facility] Hospitalment on above:Performed By: #### RENAL, URIC, MG #### [facility] [address] [address] [address] Hari BrandtGFR-NON AF ACBELMFX98 mL/min/1.73b7Pqijafxuit low>=60The [facility] HospitalComment on above:Performed By: #### RENAL, URIC, MG #### [facility] [address] [place] [address] Dr. Hari PalmerGlucose [Mass/Vol]113 mg/dLCritically wvhb52-584Bxd [facility] HospitalComment on above:Performed By: #### RENAL, URIC, MG #### [facility] [address] [place] [address] Dr. Hari PalmerPhosphate [Mass/Vol]4.4 mg/dLNormal2.6-4.7The [facility] Comment on above:Performed By: #### RENAL, URIC, MG #### [facility] [address] [place] [address] Dr. Hari PalmerPotassium [Moles/Vol]4.0 mmol/LNormal3.5-5.1The [facility] Comment on above:Performed By: #### RENAL, URIC, MG #### [facility] [address] [place] [address] Dr. Hari PalmerSodium [Moles/Vol]137 mmol/KSgtbom605-571Hvg [facility] Comment on above:Performed By: #### RENAL, URIC, MG #### [facility] [address] [place] [address] Dr. Hari PalmerUrea nitrogen [Mass/Vol]44.0 mg/dLCritically high7.0-18.0The [facility] HospitalComment on above:Performed By: #### RENAL, URIC, MG #### [facility] [address] [place] [address] Dr. Hari PalmerURIC ACID SERUMon 11-94-5826Mrrrc [Mass/Vol]6.6 mg/dLCritically high2.6-6.0The [facility] HospitalComment on above:Performed By: #### RENAL, URIC, MG #### [facility] [address] [place] [address] Dr. Hari Hadley T PROTEIN CREAT RATIOon 01-65-6045Luxjydl (U) [Mass/Vol] 31.4 mg/dLCritically high<=12.0The [facility] HospitalComment on above:Performed By: #### MG, URIC, RENAL #### [facility] [address] [address] [address] Hari Prince PROT CREAT RAT0.55NormalThe [facility] HospitalComment on above: Performed By: #### MG, URIC, RENAL #### [facility] [address] [id number] Hari PalmerURINE CREAT57.50 mg/dYUmriri81.00-300.00[facility] Comment on above:Performed By: #### MG, URIC, RENAL #### [facility] [address] [id number] Noriega ChangECHOCARDIO M/2D COMPLETEon 91-26-8159SVGLIGPADE M/2D COMPLETE Patient: MANDEEP PURI Exam Date: 03/29/2022 : 1975 Gender:F Ordering : HAIDER FRENCH M.D. Admission #: [id number] Family : Order #: [id number] CLICK HERE TO VIEW EXAM ECHOCARDIOGRAM REPORT [...] Area(A4C): 17.00 cm2 Left Atrium Systolic Volume(A2C): 80604 mm3 Left Atrium Systolic Volume(A4C): 29371 mm3 Mitral Valve MV E to A Ratio: 0.80 Deceleration [place]: 3210 mm/s2 Mitral Valve A-Wave Peak Velocity: [...] by: Damian Alonzo M.D. on 04/01/2022 at 12:33[facility] Medical CenterVID-19 SOFIAOrdered By: Shabbir Jones on 08-72-6995MAGT-CoV+SARS-CoV-2 (COVID-19) Ag IA.rapid Ql (Resp)NegativeNegativeOhiohealth Southeastern Medical CenterComment on above:This is a duplicate Ada SARS Antigen (GLORIA) result to be used for statistical tracking purpose only.No Panel InformationOrdered By: Shabbir Jones on 69-11-9026XBLX Antigen (LFIA)[facility] BLOOD TYPE AND RHon 53-20-8348GWB INTERPRETATIONONoParkview HealthComment on above:Performed By: #### 61784, 77819, 22513, 27205, 06654 #### [facility] [address] [place] [id number], [place] INTERPRETATIONPositiveNoParkview HealthComment on above:Performed By: #### 53073, 87360, 72688, 01650, 73349 #### [facility] [address] [place] [place] [address], USABNP (B-TYPE NATRIURETIC PEPTIDE)on 69-43-1674Qwviudsmwzt peptide B (Bld) [Mass/Vol]10 pg/mLNormal0-100The [facility] [place]Comment on above:Result Comment: Given the appropriate clinical setting a BNP result of >100 pg/mL indicates congestive heart failure.Performed By: #### [id number], [id number] #### [facility] [address] [place] [address], USACBC W/DIFFon 58-23-5817TYP IMM GRANS0.2 10*3/uLNormal 0.0-0.2The [facility] Southeast OhioComment on above:Performed By: #### 68813, 49585, 47422, 58651, 60882 #### [facility] [address] [place] [address], USAABS NEUTROPHILS7.8 10*3/uLHigh1.6-7.6The [facility] OhioComment on above:Performed By: #### 90908, 02030, 13681, 47981, 80467 #### [facility] [address] [facility] [place] [address], USABasophils (Bld) [#/Vol]0.1 10*3/uLNormal0.0-0.2The [facility] OhioComment on above:Performed By: #### 22159, 39790, 35954, 42390, 62393 #### [facility] [address] [place] [address], USABasophils/100 WBC (Bld)0.6 %Normal0.0-1.0The [facility] Southeast OhioComment on above:Performed By: #### 10495, 43291, 30325, 75367, 10629 #### [facility] [address] [place] [address], USAEosinophils (Bld) [#/Vol]0.3 10*3/uLNormal0.0-0.5The [facility] OhioComment on above:Performed By: #### 27544, 13720, 31214, 29018, 85082 #### [facility] [address] [place] [address], USAEosinophils/100 WBC (Bld)2.5 %Normal0.0-6.0The [facility] OhioComment on above:Performed By: #### 46145, 43323, 26565, 83617, 87011 #### [facility] [address] [place] [address], USAErythrocyte distribution width (RBC) [Ratio]13.6 %Normal 11.5-15.0The [facility] OhioComment on above:Performed By: #### 35770, 16477, 26580, 02983, 25713 #### [facility] [address] [facility] [place] [address], USAHematocrit (Bld) [Volume fraction]34.5 %Low36.0-45.0The [facility] OhioComment on above:Performed By: #### 03961, 25250, 55555, 63594, 50729 #### [facility] [address] [place] [address], USAHemoglobin (Bld) [Mass/Vol]11.3 g/dLLow12.0-15.0The [facility] OhioComment on above:Performed By: #### 88044, 69613, 54710, 68397, 84690 #### [facility] [address] [place] [address], USAIMMATURE GRANS1.4 %High0.0-1.0The [facility] OhioComment on above:Performed By: #### 78537, 49714, 56062, 28787, 26171 #### [facility] [address] [facility] [place] [address], USALymphocytes (Bld) [#/Vol]2.0 10*3/uLNormal1.2-4.0The [facility] OhioComment on above:Performed By: #### 22325, 76765, 59590, 23239, 83910 #### [facility] [address] [place] [address], USALymphocytes/100 WBC (Bld)18.6 %Low20.0-45.0The [facility] OhioComment on above:Performed By: #### 77493, 70597, 67666, 95760, 35084 #### [facility] [address] [place] [address], [facility] HOSPITALSMCH (RBC) [Entitic mass]31.3 nyPrhsss60.0-33.0The [facility] OhioComment on above:Performed By: #### 69798, 50036, 12029, 44896, 73793 #### [facility] [address] [place] [address], USAMCHC (RBC) [Mass/Vol]32.8 g/oEDdrqas05.0-35.0The [facility] OhioComment on above:Performed By: #### 85834, 92219, 08098, 83937, 53693 #### [facility] [address] [place] [address], USAMCV (RBC) [Entitic vol]95.6 cGJbvmni62.0-98.0The [facility] OhioComment on above:Performed By: #### 56532, 64272, 14381, 17141, 84781 #### [facility] [address] [place] [address], USAMonocytes (Bld) [#/Vol]0.5 10*3/uLNormal0.1-1.0The [facility] OhioComment on above:Performed By: #### 65938, 80926, 57665, 20469, 17333 #### [facility] [address] [place] [address], USAMONOS4.9 %Low5.0-12.0The [facility] OhioComment on above:Performed By: #### 59602, 25073, 02215, 29818, 81630 #### [facility] [address] [place] [address], USANeutrophils/100 WBC (Bld)72.0 %Twujrw50.0-72.0The [facility] OhioComment on above:Performed By: #### 38705, 83231, 44639, 33439, 11697 #### [facility] [address] [place] [address], USANucleated RBC/100 WBC (Bld) [Ratio]0 %Normal0-0The [facility] OhioComment on above:Performed By: #### 30904, 96633, 29883, 42769, 50256 #### [facility] [address] [facility] [place] [address], USAPLAT IHL106 10*3/zMKsezxn422-482Zfw [facility] OhioComment on above:Performed By: #### 28564, 64853, 24690, 93137, 67290 #### [facility] [address] [facility] [place] [address], USARBC (Bld) [#/Vol]3.61 10*6/uLLow3.80-5.00Day[facility] Osteopathic HospitalComment on above:Performed By: #### 50186, 81221, 61644, 57154, 69703 #### [facility] [address] [place] [address], USAWBC (Bld) [#/Vol]10.78 10*3/uLHigh4.00-10.60The [facility] OhioComment on above:Performed By: #### 65287, 97357, 80333, 38397, 15893 #### [facility] [address] [place] [address], USACHEST AND LATERALon 34-96-7981LUFDQ AND [facility] Department of Radiology [address] [place] [id number] Patient Name: MANDEEP PURI : 1975 [...] pathology. Electronically signed: Royal Dominguez. Transcribed by: [email or web address], User Resident: Electronically Signed by: ROYAL DOMINGUEZ @ 02/13/2022 11:48 AMNormalThe [facility] OhioCMV IGG BLOODon 66-65-9681DAV IGG3.13Normal The [facility] OhioComment on above:Result Comment: NORMAL RANGES: < OR = 0.9O NEGATIVE ; NO DETECTABLE IgG ANTIBODY TO CMV 0.91 - 1.09 EQUIVOCAL; REPEAT TESTING SUGGESTED > OR = 1.10 POSITIVE ; INDICATES PRESENCE OF DETECTABLE IgG ANTIBODY TO CMVPerformed By: #### 88353, 98987, 97145, 20680, 92373 #### [facility] [address] [place] [address], USACOMP METABOLIC PANELon 71-77-4910Gwosiwa [Mass/Vol]4.5 g/dL Normal3.5-5.7The [facility] OhioComment on above:Performed By: #### 41177, 59520, 03808 #### [facility] [address] [place] [address], USAALKALINE RKWUNX55 IU/ZAsrobv04-563Uxq [facility] OhioComment on above:Performed By: #### 16438, 50192, 82225 #### [facility] [address] [place] [address], USAALT [Catalytic activity/Vol]12 U/LNormal7-52The [facility] OhioComment on above:Performed By: #### 95007, 66982, 09308 #### [facility] [address] [place] [address], USAAST [Catalytic activity/Vol]13 U/KNwwcrj22-13Umn [facility] OhioComment on above:Performed By: #### 76204, 81687, 35704 #### [facility] [address] [place] [address], USABilirubin [Mass/Vol]0.3 mg/dLNormal0.3-1.0The [facility] OhioComment on above:Performed By: #### 40247, 00632, 48075 #### [facility] [address] [place] [address], USACalcium [Mass/Vol]9.5 mg/dLNormal8.6-10.3The [facility] OhioComment on above:Performed By: #### 43387, 61074, 68639 #### [facility] [address] [place] [address], USAChloride [Moles/Vol]103 mmol/KAfpsmu61-926Rnz [facility] OhioComment on above:Performed By: #### 22185, 89044, 51365 #### [facility] [address] [place] [address], USACO2 [Moles/Vol]22 mmol/KBnwszy33-10Suw [facility] OhioComment on above:Performed By: #### 15012, 39063, 96626 #### [facility] [address] [place] [address], USACreatinine [Mass/Vol]3.51 mg/dLHigh0.60-1.20The [facility] OhioComment on above:Performed By: #### 16928, 18943, 73214 #### [facility] [address] [place] [address], USAeGFR- Jgmozndf56 ml/min/1.73sq mAbnormal>60The [facility] OhioComment on above:Performed By: #### Padma, 63373, 20682 #### [facility] [address] [place] [address], USAeGFR- non- Fwbsaxef84 ml/min/1.73sq mAbnormal>60The [facility] OhioComment on above:Performed By: #### Padma, 09442, 54852 #### [facility] [address] [place] [address], USAGlucose [Mass/Vol]100 mg/nOIzednt63-824Smi [facility] OhioComment on above:Performed By: #### Padma, 57270, 77123 #### [facility] [address] [place] [address], USAPotassium [Moles/Vol]3.9 mmol/LNormal3.5-5.1The [facility] OhioComment on above:Performed By: #### Padma, 72661, 10516 #### [facility] [address] [place] [address], USAProtein [Mass/Vol]8.0 g/dLNormal6.0-8.3The [facility] OhioComment on above:Performed By: #### Padma, 26732, 11652 #### [facility] [address] [place] [address], USASodium [Moles/Vol]136 mmol/JDomwsb992-233Ybm [facility] OhioComment on above:Performed By: #### Padma, 40388, 87338 #### [facility] [address] [place] [address], USAUrea nitrogen [Mass/Vol]41 mg/dLHigh7-25The [facility] OhioComment on above:Performed By: #### Padma, 54046, 02242 #### [facility] [address] [place] [address], USACREATININE URINE RANDOMon 62-45-0806Heoszsaopn (U) [Mass/Vol]63.0 mg/dLNoParkview HealthComment on above:Result Comment: There are no established reference values for random urine specimensPerformed By: #### 00662, 20599, 50222, 19445, 72159 #### [facility] [address] [place] [address], USACT RENAL RECIPIENT ABDOMEN AND PEVLIS WO CONTRASTon 38-01-4872BV RENAL RECIPIENT ABDOMEN AND PEVLIS WO CONTRASTUnSelect Medical Specialty [facility], Inc Department of Radiology [address] [place] [address] Patient Name: MNADEEP PURI : 1975 Sex: F Age: Race: [...] achievable. Electronically signed: NAN SARAVIA. Transcribed by: [email or web address], User Resident: Electronically Signed by: NAN Peng ANGELANUNU @ 02/12/2022 02:59 PMNormalThe [facility] OhioComment on above:Order Comment: , Pre-kidney transplant work-up. Please evaluate vessels for kidney transplant , Height (ft.): 5 ft 2 in , Weight (lbs): 207 , Pre-kidney transplant work-up. Please evaluate vessels for kidney transplant , Height (ft.): 5 ft 2 in , Weight (lbs): 207 , , , Ordering Provider- HAIDER FRENCH MD , DIRECT BILI on 74-51-6781Ycmclmewj.direct [Mass/Vol]0.0 mg/dLNormal0.0-0.2The [facility] OhioComment on above:Performed By: #### 75296, 43372, 48478 #### [facility] [address] [place] [address], USAEPSTEIN LAGUERRE VIRUS ABon 28-95-2378EZ VCA IGG2.35NoParkview HealthComment on above:Order Comment: CONSISTENT WITH PAST EBV INFECTIONResult Comment: NORMAL RANGES: < OR = 0.9O NEGATIVE ; NO DETECTABLE IgG ANTIBODY TO EBV-VCA 0.91 - 1.09 EQUIVOCAL; REPEAT TESTING SUGGESTED > OR = 1.10 POSITIVE ; INDICATES PRESENCE OF DETECTABLE IgG ANTIBODY TO EBVPerformed By: #### 33768, 56922, 78277, 70180, 94982 #### [facility] [address] [facility] [place] [address], USAEB VCA IGM0.00NoParkview Health Comment on above:Order Comment: CONSISTENT WITH PAST EBV INFECTIONResult Comment: NORMAL RANGES: < OR = 0.9O NEGATIVE ; NO SIGNIFICANT LEVEL OF DETECTABLE EBV-VCA IgM AB 0.91 - 1.09 EQUIVOCAL; REPEAT TESTING SUGGESTED > OR = 1.10 POSITIVE ; SIGNIFICANT LEVEL OF DETECTABLE EBV-VCA IgM ABPerformed By: #### 83820, 03014, 75349, 15078, 25888 #### [facility] [address] [place] [address], USAHEMOGLOBIN A1Con 86-23-1003Nycwzwy [Moles/Vol]120 mmol/L NormalThe [facility] OhioComment on above:Performed By: #### 55340, 12987 #### [facility] [address] [place] [address], QIDVgJ2z (Bld) [Mass fraction]5.8 %Normal4.0-6.0The [facility] OhioComment on above:Performed By: #### 57513, 58848 #### [facility] [address] [place] [address], USAHEPATITIS A ANTIBODY IGMon 64-38-6937AHC A AB IGM Non-ReactiveNormalNONREACTIVEThe [facility] OhioComment on above:Performed By: #### 47663, 19388, 94905, 01274, 12762 #### [facility] [address] [place] [address], USAHEPATITIS B CORE ANTIBODYon 79-78-9774GNK B CORE AB Non-ReactiveNormalNONREACTIVEThe [facility] OhioComment on above:Performed By: #### 84313, 09890, 07494, 61382, 05797 #### [facility] [address] [place] [address], USAHEPATITIS B SURFACE ANTIBODY QUANTon 51-90-3655SOT B SURF AB1.14 mIU/mlNormalThe [facility] OhioComment on above: Result Comment: INTERPRETATION: NONREACTIVE<8.00 mIU/mL INDETERMINATE8.00 - 12.00 mIU/mL REACTIVE>12 mIU/mLPerformed By: #### 24386, 01109, 62275, 01893, 99840 #### [facility] [address] [place] [address], USAHEPATITIS B SURFACE ANTIGEN QUALon 87-95-8481TAG B SURF AG QUALNon-ReactiveNormalNONREACTIVEThe [facility] OhioComment on above:Performed By: #### 85096, 99903, 95160, 76815, 93426 #### [facility] [address] [place] [address], USAHEPATITIS C ANTIBODYon 56-78-3103BGNT-HCVNon-ReactiveNormal NONREACTIVEThe [facility] OhioComment on above:Performed By: #### 28290, 88447, 58875, 90502, 86503 #### [facility] [address] [place] [address], USAHIV1 AND 2 COMBO 4Gon 44-37-5484PHI COMBONegativeNormal NEGATIVEThe [facility] OhioComment on above:Performed By: #### 47959, 92806, 21256, 36341, 30226 #### [facility] [address] [place] [address], USAHLA ABC CLASS I TYPINGon 2A*-1 MGGYVJRLYL7Uabebw The [facility] OhioComment on above:Order Comment: Some of the reagents used for [...] be possible, but not probable, due to frequency.Performed By: #### 78019, 50329, 87516, 57977, 13855 #### [facility] [address] [place] [address], *-2 ABOUKUOPOV6VgewldBev [facility] OhioComment on above:Order Comment: Some of the reagents used for [...] probable, due to frequency. Performed By: #### 82465, 79819, 30477, 31241, 19353 #### [facility] [address] [place] [address], USAB*-1 HUXRUCYENC31VysbfvCmrOhioHealth Mansfield HospitalComment on above:Order Comment: Some of the reagents used for [...] probable, due to frequency. Performed By: #### 60562, 21848, 73099, 11572, 13031 #### [facility] [address] [facility] [place] [address], USAB*-2 XLCWQFQYPQ51XpdqsqNahOhioHealth Mansfield HospitalComment on above:Order Comment: Some of the reagents used for [...] probable, due to frequency. Performed By: #### 60447, 38432, 89262, 35995, 22678 #### [facility] [address] [place] [address], USABw*-1 SQUNZWYWCX0HeomvfWxvOhioHealth Mansfield HospitalComment on above:Order Comment: Some of the reagents used for [...] probable, due to frequency. Performed By: #### 50445, 57461, 83850, 44013, 08909 #### [facility] [address] [facility] [place] [address], USABw*-2 HZCDBKTGHA[address] [place], [place] [address]Comment on above:Order Comment: Some of the reagents used for [...] probable, due to frequency. Performed By: #### 92927, 58395, 46890, 74474, 44674 #### [facility] [address] [facility] [place] [address], USAC*-1 UFQZGREQEL9TslqtxWszOhioHealth Mansfield HospitalComment on above:Order Comment: Some of the reagents used for [...] probable, due to frequency. Performed By: #### 93848, 16392, 39724, 59149, 73097 #### [facility] [address] [place] [address], USAC*-2 XWPIYSKCIC9YusaqsLjuParkview HealthComment on above:Order Comment: Some of the reagents used for [...] probable, due to frequency. Performed By: #### 47676, 87658, 78143, 90484, 54734 #### [facility] [address] [facility] [place] [address], USAMETHODClass I Typing by PCR-SSOP LuminexOhioHealth Mansfield HospitalComment on above:Order Comment: Some of the reagents used for [...] be possible, but not probable, due to frequency.Performed By: #### 10433, 12011, 79340, 02659, 93513 #### [facility] [address] [facility] [place] [address], USASIGNED [facility] Comment on above:Order Comment: Some of the reagents used for [...] be possible, but not probable, due to frequency.Result Comment: Nelson Noriega, MS,CHT(DONA),MT(ASCP) [employer], Transplant ImmunologyPerformed By: #### 03300, 67292, 70202, 07506, 45773 #### [facility] [address] [facility] [place] [address], USAHLA CLASS II TYPINGon 93-66-8518PKX8*-1 BIRIQTXKRL79:01 NormalDayton Osteopathic HospitalComment on above:Order Comment: Some of the reagents used for [...] be possible, but not probable, due to frequency.Performed By: #### 24684, 37124, 62563, 79634, 43506 #### [facility] [address] [place] [address], USADPB1*-2 QNMNKPNTQO48:02OhioHealth Mansfield HospitalComment on above:Order Comment: Some of the reagents used for [...] probable, due to frequency. Performed By: #### 46731, 28823, 16483, 47450, 69597 #### [facility] [address] [place] [address], USADQA1*-1 PNJYQIZQMG15HlsiqwOsc[address] [place], [place] [address]Comment on above:Order Comment: Some of the reagents used for [...] probable, due to frequency. Performed By: #### 25979, 22715, 07861, 66897, 04238 #### [facility] [address] [place] [address], USADQA1*-2 MPGMUBWMSR22SwweqcDvtOhioHealth Mansfield HospitalComment on above:Order Comment: Some of the reagents used for [...] probable, due to frequency. Performed By: #### 91611, 03709, 39707, 78187, 43016 #### [facility] [address] [place] [address], USADQB1*-1 HILOIAYGLT2YqcqhzEojOhioHealth Mansfield HospitalComment on above:Order Comment: Some of the reagents used for [...] probable, due to frequency. Performed By: #### 75353, 53260, 39616, 23974, 56958 #### [facility] [address] [facility] [place] [address], USADQB1*-2 EPJHSHJEYL9YcemtgDzyOhioHealth Mansfield HospitalComment on above:Order Comment: Some of the reagents used for [...] probable, due to frequency. Performed By: #### 98737, 52589, 63895, 02227, 07205 #### [facility] [address] [place] [address], USADRB1*-1 NWXYQGZAPW47[address]zrxcJ[address] [place], [place] [address]Comment on above:Order Comment: Some of the reagents used for [...] probable, due to frequency. Performed By: #### 26205, 20576, 19547, 19753, 44810 #### [facility] [address] [place] [address], USADRB1*-2 TMEOIXRPDI81Yuz[address]kmCiz[address] [place], [place] [address]Comment on above:Order Comment: Some of the reagents used for [...] probable, due to frequency. Performed By: #### 93507, 49573, 50105, 01170, 30666 #### [facility] [address] [facility] [place] [address], USADRB3*-1 WRPXQZIMBY[address]QknjpqSz[address] [place], [place] [address]Comment on above:Order Comment: Some of the reagents used for [...] probable, due to frequency. Performed By: #### 29332, 28071, 45968, 43241, 76301 #### [facility] [address] [facility] [place] [address], USAMETHODClass II Typing by PCR-SSOP LuminexOhioHealth Mansfield HospitalCombeaumont hospital on above:Order Comment: Some of the reagents used for [...] be possible, but not probable, due to frequency.Performed By: #### 99103, 10555, 65293, 80775, 82012 #### [facility] [address] [place] [address], USALIPID PROFILEon 08-55-5231Aaoxaaiusti [Mass/Vol]221 mg/dL Khea437-817Nrx [facility] OhioComment on above:Result Comment: CHOLESTEROL REFERENCE RANGE: 20 YEARS AND OLDER CARDIOVASCULAR RISK Less than 200 mg/dl Low Risk 200 to 239 mg/dl Borderline Risk 240 mg/dl and greater High RiskPerformed By: #### 39522, 30898, 33092, 95808, 10849 #### [facility] [address] [facility] [place] [address], USACholesterol in HDL [Mass/Vol]40 mg/bCPbctsh74-98Xbw [facility] OhioComment on above:Result Comment: Slight variation in normal range could be due to gender and/or age. HDL CHOLESTEROL REFERENCE RANGE: 20 years and older Cardiovascular Risk > or =60 mg/dL Desirable 40 TO 59 mg/dL Low Risk <40 mg/dL High RiskPerformed By: #### 04806, 76405, 09201, 73055, 24097 #### [facility] [address] [place] [address], USACholesterol in LDL [Mass/Vol]101 mg/dLNormal0-130The [facility] OhioComment on above:Result Comment: LDL IS A CALCULATION LDL IS ONLY VALID IF THE TRIG IS LESS THAN 400.Performed By: #### 34540, 32038, 89346, 02942, 93105 #### [facility] [address] [facility] [place] [address], USACholesterol.total/Cholesterol in HDL [Mass ratio]5.5 {ratio}High.0-4.5The [facility] OhioComment on above: Performed By: #### 13535, 69292, 21808, 18633, 32404 #### [facility] [address] [place] [address], USANON-HDL ZQBHVDGKTDX538 mg/dLNoParkview HealthComment on above:Performed By: #### 56716, 66819, 10907, 10079, 83446 #### [facility] [address] [place] [address], USATriglyceride [Mass/Vol]402 mg/cJKlte84-153BseDayton Osteopathic HospitalComment on above:Result Comment: TRIGLYCERIDE REFERENCE RANGE: 20 YEARS AND OLDER CARDIOVASCULAR RISK LESS THAN 150 mg/dl LOW RISK 150 TO 199 mg/dl BORDERLINE RISK 200 mg/dl AND GREATER HIGH RISKPerformed By: #### 50662, 66696, 60703, 26007, 82771 #### [facility] [address] [place] [address], USAVLDL CHOL80 mg/dLHigh0-40Dayton Osteopathic HospitalComment on above:Performed By: #### 84590, 07367, 12403, 03752, 51003 #### [facility] [address] [place] [address], USAMUMPS IGG BLDon 23-92-4784JDIHH IGG5.46NoParkview HealthComment on above:Result Comment: NORMAL RANGES: < OR = 0.9O NEGATIVE ; NO DETECTABLE IgG ANTIBODY TO MUMPS 0.91 - 1.09 EQUIVOCAL; REPEAT TESTING SUGGESTED > OR = 1.10 POSITIVE ; INDICATES PRESENCE OF DETECTABLE IgG ANTIBODY TO MUMPSPerformed By: #### [id number], [id number], [id number], [id number] #### [facility] [address] [place] [address], USARUBELLAon [id number] HealthComment on above:Result Comment: NORMAL RANGES: < OR = 0.9O NEGATIVE ; NO DETECTABLE IgG ANTIBODY TO RUBELLA 0.91 - 1.09 EQUIVOCAL; REPEAT TESTING SUGGESTED > OR = 1.10 POSITIVE ; INDICATES PRESENCE OF DETECTABLE IgG ANTIBODY TO RUBELLA VIRUSPerformed By: #### 61110, 13135, 08610, 34675, 86886 #### [facility] [address] [place] [address], USARUBEOLA MEASLES IGGon [id number] IGG6.43NoParkview HealthComment on above:Result Comment: NORMAL RANGES: < OR = 0.9O NEGATIVE ; NO DETECTABLE IgG ANTIBODY TO RUBEOLA 0.91 - 1.09 EQUIVOCAL; REPEAT TESTING SUGGESTED > OR = 1.10 POSITIVE ; INDICATES PRESENCE OF DETECTABLE IgG ANTIBODY TO RUBEOLAPerformed By: #### 39141, 19010, 95277, 97540, 79943 #### [facility] [address] [facility] [place] [address], USASINGLE ANTIGEN CLASS 1on [id number] I Single AntigenNoParkview HealthComment on above:Order Comment: Some of the reagents used for [...] be possible, but not probable, due to frequency.Performed By: #### 30003, 81283, 07783, 90837, 43986 #### [facility] [address] [place] [address], USASINGLE ANTIGEN CLASS 2on [id number]w HealthComment on above:Order Comment: Some of the reagents used for [...] be possible, but not probable, due to frequency.Result Comment: Class II Antigen Microbeads Potential specificites added to the watch list.Performed By: #### 50621, 93265, 96536, 76629, 63394 #### [facility] [address] [place] [address], USAResult Comment: Class I Antigen Microbeads Potential specificites added to the watch list.EEBC8FtayraEijParkview HealthComment on above:Order Comment: Some of the reagents used for [...] be possible, but not probable, due to frequenc y.Performed By: #### 88405, 70018, 88051, 78205, 84585 #### [facility] [address] [facility] [place] [address], USAMETHODClass II Single AntigenNoParkview HealthComment on above:Order Comment: Some of the reagents used for [...] probable, due to frequency. Performed By: #### 05574, 06731, 89793, 38690, 12305 #### [facility] [address] [place] [address], USAT PROT UR Yesy 02-12-2022U TOTAL TBEHKYO95.0 mg/dLNormal [facility] HospitalComment on above:Result Comment: There are no established reference values for random urine specimensPerformed By: #### 06492, 46374, 10476, 44150, 52253 #### [facility] [address] [place] [address], USATB QUANTIFERON PLUSon 60-10-8744GCWIAVT MINUS NIL>10.00 NormalThe [facility] Southeast OhioComment on above:Performed By: #### [id number] #### [facility] [address] [place] [address], USANIL0.03 IU/mLNormalThe [facility] [place] Comment on above:Performed By: #### 97366 #### [facility] [address] [place] [address], USATB QUANTIFERONNegativeNormalNEGATIVEThe [facility] OhioComment on above:Result Comment: Quantiferon TB Gold Interpretation (IU/mL): NEGATIVE: M. tuberculosis infection not likely. Nil: <=8.0 TB1 Antigen minus Nil (KI3XS-IKI): <0.35 OR >=0.35; and <25% of Nil value. TB2 Antigen minus Nil (KG6MT-PKM): <0.35 OR >=0.35; and <25% of Nil value. Mitogen minus Nil (MARY-NIL): >=0.50 NOTE: Diagnosing or excluding tuberculosis disease, and assessing the probability of LTBI, requires a combination of epidemiological, historical, medical, and diagnostic findings that should be taken into account when interpreting QuantiFERON (TM)-TB Gold results. See general guidance on the diagnosis and treatment of TB disease and LTBI (https://www.cdc.gov/tb/publications/guidlines/default.htmPerformed By: #### 98044 #### [facility] [address] [place] [address], USATB1 AG0.05 IU/mLNormalThe [facility] OhioComment on above:Performed By: #### 34097 #### [facility] [address] [place] [address], USATB1 AG MINUS NIL0.02 IU/mLNormalThe [facility] OhioComment on above:Performed By: #### 96219 #### [facility] [address] [place] [address], USATB2 AG0.05 IU/mLNormalThe [facility] OhioComment on above:Performed By: #### 92430 #### [facility] [address] [place] [address], USATB2 AG MINUS NIL0.02 IU/mLNormalThe [facility] OhioComment on above:Performed By: #### 02526 #### [facility] [address] [place] [address], USAUA,MICROSCOPIC REQUIREDon 82-15-3599Xixqjtlxax (U)SL CLOUDY AbnormalCLEARThe [facility] OhioComment on above:Performed By: #### 87100, 91824, 39479, 56816, 32279 #### [facility] [address] [place] [address], USABilirubin Ql (U)NegativeNormalNEGATIVEThe [facility] OhioComment on above:Performed By: #### 86512, 25962, 38486, 73705, 21823 #### [facility] [address] [place] [address], USAColor (U)STRAWAbnormalYELLOWThe [facility] OhioComment on above:Performed By: #### 93187, 02087, 36339, 12061, 76526 #### [facility] [address] [place] [address], USAEPISMANYAbnormalFEW,OCC,NONE SEENThe [facility] OhioComment on above:Performed By: #### 37740, 81775, 74203, 62306, 00163 #### [facility] [address] [place] [address], USAGlucose Ql (U)50 mg/dLAbnormalNEGATIVEThe [facility] Medical CenterComment on above:Performed By: #### 79357, 97239, 97848, 41284, 74854 #### [facility] [address] [place] [address], USAHemoglobin Ql (U)NegativeNormalNEGATIVEThe [facility] OhioComment on above:Performed By: #### 16017, 42978, 53426, 27534, 55863 #### [facility] [address] [place] [address], USAKETONENegativeNormalNEGATIVEThe [facility] OhioComment on above:Performed By: #### 82040, 17729, 40743, 17623, 46256 #### [facility] [address] [place] [address], USALEUK ESTERMODERATEAbnormalNEGATIVEThe [facility] OhioComment on above:Performed By: #### 77925, 20829, 02037, 17826, 41278 #### [facility] [address] [place] [address], USANitrite Ql (U)NegativeNormalNEGATIVEThe [facility] OhioComment on above:Performed By: #### 00711, 12077, 47188, 78400, 44527 #### [facility] [address] [place] [address], USApH (U)7.0 [pH]Normal5.0-8.0The [facility] OhioComment on above:Performed By: #### 45613, 16373, 83041, 57843, 22174 #### [facility] [address] [place] [address], USAProtein Ql (U)30 mg/dLAbnormalNEGATIVEThe [facility] OhioComment on above:Performed By: #### 70332, 93423, 27250, 90327, 99115 #### [facility] [address] [place] [address], USARBCNONE SEENNormalNONE SEENThe [facility] Medical CenterComment on above:Performed By: #### 41461, 11166, 81485, 03189, 28564 #### [facility] [address] [facility] [place] [address], USASPEC GRAV1.215Nas4.015-1.020The [facility] OhioComment on above:Performed By: #### 31007, 08345, 65977, 82753, 61390 #### [facility] [address] [facility] [place] [address], USAWBC OX50-39QqupebfgTHFW SEENThe [facility] OhioComment on above:Performed By: #### 52734, 48828, 77365, 47383, 31240 #### [facility] [address] [facility] [place] [address], USAVARICELLA ZOSTER IGGon 38-55-7359KMYJTIXTZ IGG3.29NoalThe [facility] OhioComment on above:Result Comment: NORMAL RANGES: < OR = 0.9O NEGATIVE ; NO DETECTABLE IgG ANTIBODY TO VARICELLA-ZOSTER VIRUS 0.91 - 1.09 EQUIVOCAL; REPEAT TESTING SUGGESTED > OR = 1.10 POSITIVE ; INDICATES PRESENCE OF DETECTABLE IgG ANTIBODY TO VARICELLA-ZOSTER VIRUSPerformed By: #### 39804, 32791, 74279, 60692, 79663 #### [facility] [address] [facility] [place] [address], USAPTH INTACTon 44-99-4017CZL, Zkqmyz485 pg/mLCritically high 15-65The [facility] HospitalComment on above:Performed By: #### MG, URIC, RENAL #### [facility] [address] [place] [address] Dr. Hari PalmerFERRITINon 38-52-5911Bgafzsby [Mass/Vol]256.0 ng/mLCritically high6.2-137.0The [facility] HospitalComment on above:Performed By: #### MG, URIC, RENAL #### [facility] [address] [place] [address] Dr. Hari PalmerHEMOGRAM AND PLATELon 02-34-8868Ummfwkwlah (Bld) [Volume fraction]33.7 %Critically low36.0-48.0The [facility] HospitalComment on above: Performed By: #### MG, URIC, RENAL #### [facility] [address] [place] [address] Dr. Hari PalmerHemoglobin (Bld) [Mass/Vol]10.9 g/dLCritically low12.0-16.0The [facility]sburg HospitalComment on above:Performed By: #### MG, URIC, RENAL #### [facility] [address] [place] [address] Dr. Hari Sargent (RBC) [Entitic mass]31.4 vqZxibno24.7-34.0The [facility] HospitalComment on above:Performed By: #### MG, URIC, RENAL #### [facility] [address] [place] [address] Dr. Hari Sargent (RBC) [Mass/Vol]32.3 g/iPGqyeve12.9-35.2The [facility] HospitalComment on above:Performed By: #### MG, URIC, RENAL #### [facility] [address] [place] [address] Dr. Hari SargentV (RBC) [Entitic vol]97.1 cPTpjynr23.0-99.0The [facility] HospitalComment on above:Performed By: #### MG, URIC, RENAL #### [facility] [address] [place] [address] Dr. Hrai PalmerPLT314 103/lhVzlann869-262Aoa [facility] HospitalComment on above: Performed By: #### MG, URIC, RENAL #### [facility] [address] [place] [address] Dr. Hari PalmerRBC3.47 106/ulCritically low4.20-5.40The [facility] on above:Performed By: #### MG, URIC, RENAL #### [facility] [address] [place] [address] Dr. Hari PalmerWBC9.4 103/ulNormal4.0-11.0The [facility] HospitalComment on above: Performed By: #### MG, URIC, RENAL #### [facility] [address] [place] [address] Dr. Hari Riley AND TIBCon 12-03-2021% SVDSMKZGRS80.0 %NormalThe [facility] HospitalComment on above:Performed By: #### MG, URIC, RENAL #### [facility] [address] [place] [address] Dr. Hari Riley [Mass/Vol]52.0 ug/gWGvijaq18.0-170.0The [facility] Comment on above:Performed By: #### MG, URIC, RENAL #### [facility] [address] [place] [address] Dr. Hari PalmerTIBC HULMRS478.0 ug/eQHefakh498.0-497.0The [facility] Comment on above:Performed By: #### MG, URIC, RENAL #### [facility] [address] [place] [address] Dr. Hari PalmerMAGNESIUMon 39-92-3487Hmfpnjwvi [Mass/Vol]2.1 mg/dLNormal1.6-2.3 The [facility] HospitalComment on above:Performed By: #### MG, URIC, RENAL #### [facility] [address] [place] [address] Dr. Hari MorenoAL FUNCTION PANELon 34-63-3051Lnrdbid [Mass/Vol]3.6 g/dLNormal 3.5-5.0The [facility] HospitalComment on above:Performed By: #### MG, URIC, RENAL #### [facility] [address] [place] [address] Dr. Hari PalmerCalcium [Mass/Vol]8.4 mg/dLNormal8.4-10.2The [facility] Comment on above:Performed By: #### MG, URIC, RENAL #### [facility] [address] [place] [address] Dr. Hari PalmerChloride [Moles/Vol]101 mmol/RHjamqa00-201Mwj [facility] Comment on above:Performed By: #### MG, URIC, RENAL #### [facility] [address] [place] [address] Dr. Hari PalmerCO2 [Moles/Vol]24.3 mmol/CYdanew94.0-30.0The [facility] Comment on above:Performed By: #### MG, URIC, RENAL #### [facility] [address] [place] [address] Dr. Hari PalmerCreatinine [Mass/Vol]3.32 mg/dLCritically high0.52-1.04The [facility] HospitalComment on above:Performed By: #### MG, URIC, RENAL #### [facility] [address] [place] [address] Dr. Noriega ChangEGFR-AF MPOKNPBB70 mL/min/1.57h5Gmisansuia low>=60The [facility] HospitalComment on above:Performed By: #### MG, URIC, RENAL #### [facility] [address] [place] [address] Dr. Hari BrandtGFR-NON AF HPBLAQOW43 mL/min/1.45p7Jmrchwpryj low>=60The [facility] HospitalComment on above:Performed By: #### MG, URIC, RENAL #### [facility] [address] [place] [address] Dr. Hari PalmerGlucose [Mass/Vol]119 mg/dLCritically kfla61-863Dan [facility] HospitalComment on above:Performed By: #### MG, URIC, RENAL #### [facility] [address] [place] [address] Dr. Hari PalmerPhosphate [Mass/Vol]4.7 mg/dLCritically high2.5-4.5The [facility] HospitalComment on above:Performed By: #### MG, URIC, RENAL #### [facility] [address] [place] [address] Dr. Hari PalmerPotassium [Moles/Vol]4.0 mmol/LNormal3.4-5.0The [facility] Comment on above:Performed By: #### MG, URIC, RENAL #### [facility] [address] [address] [address] Hari Molinaum [Moles/Vol]135 mmol/LCritically doo933-581Ipj [facility] Hospitalment on above:Performed By: #### MG, URIC, RENAL #### [facility] [address] [address] [address] Hari Palma nitrogen [Mass/Vol]42.0 mg/dLCritically high7.0-17.0The [facility] HospitalComment on above:Performed By: #### MG, URIC, RENAL #### [facility] [address] [address] [address] Hari Shafer RANDOM W/MICROSCOPICon 50-65-4790SDOQGDKRKRYRBZhubgygiLPTF SEENOhiohealth Arthur G.H. Bing, Md, Cancer CenterComment on above:Performed By: #### UAMIC #### [facility] [address] [address] [address] Hari Drew Ql (U)NegativeNormalNEGATIVEThe [facility] Comment on above:Performed By: #### UAMIC #### [facility] [address] [address] [address] Hari GreeneE SEENNormalNONE SEENMercy Health St. [facility] on above:Performed By: #### UAMIC #### [facility] [address] [address] [address] Hari Mena (U)CLEARNormalCLEARThe [facility] HospitalComment on above: Performed By: #### UAMIC #### [facility] [address] [address] [address] Hari Sims (U)LT. YELLOWNormalYELLOWOhiohealth Arthur G.H. Bing, Md, Cancer CenterComment on above:Performed By: #### UAMIC #### [facility] [address] [address] [address] Hari Jean-Baptiste LM Nom (Urine sed)NONE SEENNormalNONE SEENOhiohealth Arthur G.H. Bing, Md, Cancer CenterComment on above:Performed By: #### UAMIC #### [facility] [address] [address] [address] Hari Brandtpithelial cells LM Ql (Urine sed)FEWAbnormalNONE SEEN /RAREThe [facility] HospitalComment on above:Performed By: #### UAMIC #### [facility] [address] [place] [address] Dr. Hari PalmerGlucose Ql (U)100 mg/dlAbnormalNEGATIVEOhiohealth Doctors Hospital on above:Performed By: #### UAMIC #### [facility] [address] [address] [address] Hari PalmerHemoglobin Ql (U)TRACE-INTACTAbnormalNEGATIVEOhiohealth Arthur G.[facility]. Bing, Md, Cancer CenterComment on above:Performed By: #### UAMIC #### [facility] [address] [place] [address] Dr. Hari PalmerKetones Ql (U)NegativeNormalNEGATIVEOhiohealth Arthur G.H. Bing, Md, Cancer CenterComment on above:Performed By: #### UAMIC #### [facility] [address] [place] [address] Dr. Hari PalmerLEUKOCYTESSMALLAbnormalNEGATIVEOhiohealth Arthur G.[facility]. Bing, Md, Cancer CenterComment on above:Performed By: #### UAMIC #### [facility] [address] [place] [address] Dr. Hari PalmerMUCOUSNONE SEENNormalNONE SEENOhiohealth Arthur G.H. Bing, Md, Cancer CenterComment on above:Performed By: #### UAMIC #### [facility] [address] [place] [address] Dr. Hari PalmerNitrite Ql (U)NegativeNormalNEGATIVEOhiohealth Arthur G.[facility]. Bing, Md, Cancer CenterComment on above:Performed By: #### UAMIC #### [facility] [address] [place] [address] Dr. Hari PalmerpH (U)6.0 [pH]Normal5-9The [facility] HospitalComment on above: Performed By: #### UAMIC #### [facility] [address] [place] [address] Dr. Hari PalmerXolsmWEC5-3Iytqpc5-8Lpl [facility] HospitalComment on above:Performed By: #### UAMIC #### [facility] [address] [address] [address] Hari PalmerSPEC GRAVITY1.672Nksdks3.005-<=1.025The [facility] HospitalComment on above:Performed By: #### UAMIC #### [facility] [address] [place] [address] Dr. Hari Shafer PROTEINNegativeNormalNEGATIVE/ TRACEThe [facility] Comment on above:Performed By: #### UAMIC #### [facility] [address] [place] [address] Dr. Hari Bartholomewbilinogen Qn (U)0.2 {Janice'U}/dLNormal0.2 - 1.0The [facility] HospitalComment on above:Performed By: #### UAMIC #### [facility] [address] [place] [address] Dr. Hari PalmerWBC5-10AbnormalNONE SEENThe [facility] HospitalComment on above: Performed By: #### UAMIC #### [facility] [address] [place] [address] Dr. Hari Britt ACID SERUMon 12-01-1330Hmbcf [Mass/Vol]4.6 mg/dLNormal 2.5-6.2The [facility] HospitalComment on above:Performed By: #### MG, URIC, RENAL #### [facility] [address] [place] [address] Dr. Hari Hadley T PROTEIN CREAT RATIOon 95-66-8914Pxvsrvv (U) [Mass/Vol] 31.7 mg/dLCritically high<=12.0The [facility] HospitalComment on above:Performed By: #### MG, URIC, RENAL #### [facility] [address] [place] [address] Dr. Hari Prince PROT CREAT RAT0.54NormalThe [facility] HospitalComment on above: Performed By: #### MG, URIC, RENAL #### [facility] [address] [place] [address] Dr. Hari Hadley CREAT59.03 mg/tMPxdznr97.00-300.00The [facility] Comment on above:Performed By: #### MG, URIC, RENAL #### [facility] [address] [place] [address] Dr. Hari PalmerVITAMIN D 25 OHon 44-86-2472VRX D 25-OH38.1 ng/mLNormalOhiohealth Arthur G.H. Bing, Md, Cancer CenterComment on above:Performed By: #### MG, URIC, RENAL #### [facility] [address] [place] [address] Dr. Hari Peng RANGESSEE Wyandot Memorial HospitalComment on above: Result Comment: <20 ng/mL Vit D deficient 20 - <30 ng/mL Vit D insufficient 30 - 100 ng/mL Vit D sufficient >100 ng/mL Potential ToxicityPerformed By: #### MG, URIC, RENAL #### [facility] [address] [place] [address] Dr. Hari PalmerPTH INTACTon 90-47-1426QSR, Ncwfvv527 pg/mLCritically vyeu98-70 The [facility] HospitalComment on above:Performed By: #### PTHINT #### [facility] [address] [place] [address] Dr. Hari Johnson AUTO DIFFon 89-53-3982GHOX #0.1 103/ulNormal0.0-0.1Ohio[facility] Md, Cancer CenterComment on above:Performed By: #### MG, URIC, RENAL #### [facility] [address] [place] [address] Dr. Hari PalmerBasophils/100 WBC (Bld)0.6 %Normal0.2-2.0[facility] Comment on above:Performed By: #### MG, URIC, RENAL #### [facility] [address] [place] [address] Dr. Hari [place] #0.3 103/ulNormal0.0-0.7The [facility] on above: Performed By: #### MG, URIC, RENAL #### [facility] [address] [place] [address] Dr. Hari Brandtosinophils/100 WBC (Bld)3.5 %Normal0.9-7.0[facility] Comment on above:Performed By: #### MG, URIC, RENAL #### [facility] [address] [place] [address] Dr. Hari Jensenthrocyte distribution width (RBC) [Ratio]13.8 %Fxwdbl42.0-15.0 The [facility] HospitalComment on above:Performed By: #### MG, URIC, RENAL #### [facility] [address] [place] [address] Dr. Hari PalmerHematocrit (Bld) [Volume fraction]32.8 %Critically low36.0-48.0 The [facility] HospitalComment on above:Performed By: #### MG, URIC, RENAL #### [facility] [address] [place] [address] Dr. Hari PalmerHemoglobin (Bld) [Mass/Vol]10.6 g/dLCritically low12.0-16.0The [facility] HospitalComment on above:Performed By: #### MG, URIC, RENAL #### [facility] [address] [place] [address] Dr. Hari PalmerIG #0.14 10e3/ulCritically high0.00-0.03The [facility] Comment on above:Performed By: #### MG, URIC, RENAL #### [facility] [address] [place] [address] Dr. Hari PalmerIG %1.5 %Critically high0.0-0.5The [facility] HospitalComment on above:Performed By: #### MG, URIC, RENAL #### [facility] [address] [place] [address] Dr. Hari Haywood #1.8 103/ulNormal1.2-3.8The [facility] HospitalComment on above:Performed By: #### MG, URIC, RENAL #### [facility] [address] [place] [address] Dr. Hari Weavermphocytes/100 WBC (Bld)19.3 %Critically low20.5-60.0The [facility] HospitalComment on above:Performed By: #### MG, URIC, RENAL #### [facility] [address] [address] [address] Hari Mendoza DIFF REQNONormalThe [facility] HospitalComment on above: Performed By: #### MG, URIC, RENAL #### [facility] [address] [place] [address] Dr. Hari Sargent (RBC) [Entitic mass]31.4 meRiwqtc59.7-34.0The Wallsburg HospitalComment on above:Performed By: #### MG, URIC, RENAL #### [facility] [address] [place] [address] Dr. Hari Sargent (RBC) [Mass/Vol]32.3 g/nQZsndsh27.9-35.2The [facility] HospitalComment on above:Performed By: #### MG, URIC, RENAL #### [facility] [address] [place] [address] Dr. Hari Sargent (RBC) [Entitic vol]97.0 sODzrscr17.0-99.0The [facility] HospitalComment on above:Performed By: #### MG, URIC, RENAL #### [facility] [address] [place] [address] Dr. Hari Horan #0.4 103/ulNormal0.3-0.8The [facility] HospitalComment on above:Performed By: #### MG, URIC, RENAL #### [facility] [address] [place] [address] Dr. Hari Barkleyocytes/100 WBC (Bld)4.2 %Normal1.7-12.0The [facility] Comment on above:Performed By: #### MG, URIC, RENAL #### [facility] [address] [place] [address] Dr. Hari Thompson #6.5 103/ulNormal1.4-6.5The [facility] HospitalComment on above:Performed By: #### MG, URIC, RENAL #### [facility] [address] [place] [address] Dr. Hari Carrilloutrophils/100 WBC (Bld)70.9 %Yfrcgu12.0-75.0The [facility] Hospitalment on above:Performed By: #### MG, URIC, RENAL #### [facility] [address] [place] [address] Dr. Hari Villanuevalet mean volume (Bld) [Entitic vol]9.0 fLCritically low 9.5-13.5The [facility] HospitalComment on above:Performed By: #### MG, URIC, RENAL #### [facility] [address] [address] [address] Hari PalmerPLT289 103/avWaxxut527-395Ntt [facility] on above: Performed By: #### MG, URIC, RENAL #### [facility] [address] [place] [address] Dr. Hari PalmerRBC3.38 106/ulCritically low4.20-5.40The [facility] on above:Performed By: #### MG, URIC, RENAL #### [facility] [address] [place] [address] Dr. Hari PalmerWBC9.1 103/ulNormal4.0-11.0The [facility] on above: Performed By: #### MG, URIC, RENAL #### [facility] [address] [place] [address] Dr. Hari DavisTINon 61-21-7941Tiwhrifz [Mass/Vol]204.0 ng/mLCritically high6.2-137.0The [facility] on above:Performed By: #### MG, URIC, RENAL #### [facility] [address] [address] [address] Hari Riley AND TIBCon 09-01-2021% KMEMLQFHFY84.4 %NormalThe [facility] on above:Performed By: #### MG, URIC, RENAL #### [facility] [address] [address] [address] Hari Riley [Mass/Vol]80.0 ug/wBDnshjd93.0-170.0The [facility] Comment on above:Performed By: #### MG, URIC, RENAL #### [facility] [address] [place] [address] Dr. Hari PalmerTIBC PEIRID836.0 ug/uNKlwrxa111.0-497.0[facility] Comment on above:Performed By: #### MG, URIC, RENAL #### [facility] [address] [place] [address] Dr. Hari PalmerMAGNESIUMon 43-33-1503Uglgjmfyw [Mass/Vol]2.2 mg/dLNormal1.6-2.3 The [facility] HospitalComment on above:Performed By: #### UAMIC #### [facility] [address] [place] [address] Dr. Hari PalmerRENAL FUNCTION PANELon 06-24-7754Fwktrsz [Mass/Vol]3.5 g/dLNormal 3.5-5.0The [facility] HospitalComment on above:Performed By: #### MG, URIC, RENAL #### [facility] [address] [place] [address] Dr. Hari PalmerCalcium [Mass/Vol]8.7 mg/dLNormal8.4-10.2[facility] Comment on above:Performed By: #### MG, URIC, RENAL #### [facility] [address] [place] [address] Dr. Hari PalmerChloride [Moles/Vol]105 mmol/YKcbnzx32-703Lmb [facility] Comment on above:Performed By: #### MG, URIC, RENAL #### [facility] [address] [place] [address] Dr. Hari PalmerCO2 [Moles/Vol]21.1 mmol/LCritically low22.0-30.0The [facility] HospitalComment on above:Performed By: #### MG, URIC, RENAL #### [facility] [address] [place] [address] Dr. Hari PalmerCreatinine [Mass/Vol]3.63 mg/dLCritically high0.52-1.04The [facility] Hospitalment on above:Performed By: #### MG, URIC, RENAL #### [facility] [address] [place] [address] Dr. Hari BrandtGFR-AF JZYLGNTJ28 mL/min/1.39t2Tezqffdxxh low>=60The [facility] HospitalComment on above:Performed By: #### MG, URIC, RENAL #### [facility] [address] [place] [address] Dr. Hari BrandtGFR-NON AF PXHJSBZO49 mL/min/1.07i0Mocsihzbjx low>=60The [facility] HospitalComment on above:Performed By: #### MG, URIC, RENAL #### [facility] [address] [place] [address] Dr. Hari PalmerGlucose [Mass/Vol]115 mg/dLCritically xfzp54-618Yqk [facility] HospitalComment on above:Performed By: #### MG, URIC, RENAL #### [facility] [address] [place] [address] Dr. Hari PalmerPhosphate [Mass/Vol]4.6 mg/dLCritically high2.5-4.5The [facility] Hospitalment on above:Performed By: #### MG, URIC, RENAL #### [facility] [address] [place] [address] Dr. Hari PalmerPotassium [Moles/Vol]4.2 mmol/LNormal3.4-5.0[facility] Comment on above:Performed By: #### MG, URIC, RENAL #### [facility] [address] [place] [address] Dr. Hari PalmerSodium [Moles/Vol]138 mmol/DTcgtbk188-403Vrd [facility] Comment on above:Performed By: #### MG, URIC, RENAL #### [facility] [address] [place] [address] Dr. Hari PalmerUrea nitrogen [Mass/Vol]50.0 mg/dLCritically high7.0-17.0The [facility] Hospitalment on above:Performed By: #### MG, URIC, RENAL #### [facility] [address] [address] [address] Hari Shafer RANDOM W/MICROSCOPICon 31-93-0662KEVDCROFVFQJVHxqlkejfVRUM SEENOhiohealth Arthur G.H. Bing, Md, Cancer CenterComment on above:Performed By: #### UAMIC #### [facility] [address] [address] [address] Hari PalmerBilirubin Ql (U)NegativeNormalNEGATIVEOhiohealth Doctors Hospital on above:Performed By: #### UAMIC #### [facility] [address] [address] [address] Hari PalmerCASTNONE SEENNormalNONE SEENOhiohealth Arthur G.H. Bing, Md, Cancer CenterComment on above:Performed By: #### UAMIC #### [facility] [address] [address] [address] Hari PalmerClarity (U)CLEARNormalCLEAROhiohealth Arthur G.H. Bing, Md, Cancer CenterComment on above: Performed By: #### UAMIC #### [facility] [address] [address] [address] Hari Palomolor (U)LT. YELLOWNormalYELLOWOhiohealth Arthur G.H. Bing, Md, Cancer CenterComment on above:Performed By: #### UAMIC #### [facility] [address] [address] [address] Hari PalmerCrystals LM Nom (Urine sed)NONE SEENNormalNONE SEENOhiohealth Arthur G.H. Bing, Md, Cancer CenterComment on above:Performed By: #### UAMIC #### [facility] [address] [address] [address] Noriega ChangEpithelial cells LM Ql (Urine sed)MODERATEAbnormalNONE SEEN /RARE [facility], Cancer CenterComment on above:Performed By: #### UAMIC #### [facility] [address] [place] [address] Dr. Hari PalmerGlucose Ql (U)NegativeNormalNEGATIVEOhiohealth Arthur G.H. Bing, Md, Cancer CenterComment on above:Performed By: #### UAMIC #### [facility] [address] [address] [address] Hari PalmerHemoglobin Ql (U)TRACE-INTACTAbnormalNEGATIVEOhiohealth Arthur G.H. Bing, Md, Cancer CenterComment on above:Performed By: #### UAMIC #### [facility] [address] [address] [address] Hari Bautista Ql (U)NegativeNormalNEGATIVEThe [facility] HospitalComment on above:Performed By: #### UAMIC #### [facility] [address] [address] [address] Hari PalmerLEUKOCYTESNegativeNormalNEGATIVEThe [facility] HospitalComment on above:Performed By: #### UAMIC #### [facility] [address] [address] [address] Hari EmeryCOUSNONArmani SEENNormalNONE SEENOhiohealth Arthur G.H. Bing, Md, Cancer CenterComment on above:Performed By: #### UAMIC #### [facility] [address] [place] [address] Dr. Hari Dalytrnadeen Ql (U)NegativeNormalNEGATIVEThe [facility] HospitalComment on above:Performed By: #### UAMIC #### [facility] [address] [place] [address] Dr. Hari PalmerpH (U)6.0 [pH]Normal5-9The [facility] HospitalComment on above: Performed By: #### UAMIC #### [facility] [address] [place] [address] Dr. Hrai PalmerLmrxrGMA0-5Fqxdhxhb3-1Ldg [facility] HospitalComment on above:Performed By: #### UAMIC #### [facility] [address] [place] [address] Dr. Hari PalmerSPEC GRAVITY1.835Gqqayx4.005-<=1.025The [facility] HospitalComment on above:Performed By: #### UAMIC #### [facility] [address] [place] [address] Dr. Hari Shafer PROTEINNegativeNormalNEGATIVE/ TRACEThe [facility] on above:Performed By: #### UAMIC #### [facility] [address] [place] [address] Dr. Hari Bartholomewbiledwigegen Qn (U)0.2 {Janice'U}/dLNormal0.2 - 1.0The [facility] HospitalComment on above:Performed By: #### UAMIC #### [facility] [address] [place] [address] Dr. Hari PalmerWBC2-5AbnormalNONE SEENThe [facility] HospitalComment on above: Performed By: #### UAMIC #### [facility] [address] [place] [address] Dr. Hari Britt ACID SERUMon 91-08-4469Fntuj [Mass/Vol]4.9 mg/dLNormal 2.5-6.2The [facility] HospitalComment on above:Performed By: #### UAMIC #### [facility] [address] [place] [address] Dr. Hari Hadley T PROTEIN CREAT RATIOon 77-81-9939Djasyim (U) [Mass/Vol] 22.2 mg/dLCritically high<=12.0The [facility] HospitalComment on above:Performed By: #### MG, URIC, RENAL #### [facility] [address] [place] [address] Dr. Hari Prince PROT CREAT RAT0.47NoPremier Health Miami Valley Hospital NorthComment on above: Performed By: #### MG, URIC, RENAL #### [facility] [address] [place] [address] Dr. Hari Hadley CREAT46.89 mg/yIXwvuud73.00-300.00The [facility] Comment on above:Performed By: #### MG, URIC, RENAL #### [facility] [address] [place] [address] Dr. Hari PalmerVITAMIN D 25 OHon 92-16-8609XAI D 25-OH40.5 ng/mLNormalOhiohealth Arthur G.H. Bing, Md, Cancer CenterCombeaumont hospital on above:Performed By: #### MG, URIC, RENAL #### [facility] [address] [place] [address] Dr. Hari Cifuentes D [place]ANGES[place] BELOWKettering Health MiamisburgComment on above: Result Comment: <20 ng/mL Vit D deficient 20 - <30 ng/mL Vit D insufficient 30 - 100 ng/mL Vit D sufficient >100 ng/mL Potential ToxicityPerformed By: #### MG, URIC, RENAL #### [facility] [address] [place] [address] Dr. Hari Bean [id number] Visit (NEPHMN) MANDEEP PURI ([id number]) 1975 F Date Time Provider Department 03/30/21 9:20 AM PERRI BARRETT NEPHMN During your visit today, we recorded the following information about you: Temperature Pulse Blood pressure Weight 98.2 degrees 75/minute 122/77 93 kg Height 1.549 m Perri Barrett MD 03/30/2021 10:25 AM Signed Mrs. 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 (more content not included)...NormalBarnesville HospitalUrinalysison 00-58-6848Epsvovudl, UrineNegativeNormalNegativeBarnesville Hospital Comment on above:Performed By: #### UA #### [facility] [employer] [address] [address] Proahwr (U)ClearNormalClearClermont County Hospital on above:Performed By: #### UA #### [facility] [address] [address] Tylfu (U)ColorlessCritically abnormalYellowCleBlanchard Valley Health System [facility] on above:Performed By: #### UA #### [facility] [address] [address] AkuagsoxQNL COMMENTNormalCCommunity Regional Medical Centerment on above: Result Comment: Microscopic not warrantedPerformed By: #### UA #### [facility] [address] [address] Iumbhqu Ql (U)TraceCritically abnormalNegativeClermont County Hospital on above:Performed By: #### UA #### [facility] [employer] [address] [address] Xnpxwaolku/Blood,UrNegativeNormalNegativeBarnesville Hospital Comment on above:Performed By: #### UA #### [facility] [employer] [address] [address] Psebobx Ql (U)NegativeNormalNegativeBarnesville Hospital Comment on above:Performed By: #### UA #### [facility] [employer] [address] [id number] SxvxnwaGjkecluyZynnkbNtfzmllfGmoxslxlh Clinic ClevelandComment on above:Performed By: #### UA #### [facility] [employer] [address] [address] Meeixir Ql (U)NegativeNormalNegAdena Fayette Medical Center Comment on above:Performed By: #### UA #### [facility] [address] [id number] pH (U)6.5 [pH]Normal5.0-8.0Barn[facility]ville HospitalComment on above:Performed By: #### UA #### [address] [address] Kbhykkx, UrineNegativeNormalNegativeBarnesville Hospital Comment on above:Performed By: #### UA #### [address] [address] Pnbmmuok [place], Ur1.281Frmxsd3.005-1.030[facility] Comment on above:Performed By: #### UA #### [address] [address] Jpzos Codi CommentSEE COMMENTNormalCCincinnati VA Medical CenterCombeaumont hospital on above:Result Comment: N/APerformed By: #### UA #### [address] [address] Krdpvdwtxzra (U) [Mass/Vol]NegativeNormalNegativeBarnesville HospitalComment on above:Performed By: #### UA #### [address] [id number] [phone] Summary.on 28-47-6686Shtrvf Summary.CODING DATE: 04/21/2020 [facility] STATUS: Home (Routine DC) PAYOR: [employer] [place] ADMIT DX: REASON FOR VISIT DX: Z20.828 [...] Teresa Pierce CphT Date Saved: 04/21/2020 05:17 pmNormalBarney Children'S Medical CenterPhysician Order on 92-44-1468Sjnhcszch [id number]#1.00CD:127 NormalFisher Thomas B. Finan CenterALTon 58-34-6404IIP [Catalytic activity/Vol]14 U/LNormal7 - 45Health[facility] Hospital of UnionComment on above:Result Comment: Patients treated with Sulfasalazine may generate falsely decreased results for ALT.Performed By: #### ALT #### [facility] [address] [place], [place] [address]IDYbd 19-34-4393UMB [Catalytic activity/Vol]16 U/LNormal9 - 39[facility] Hospital of UnionComment on above:Performed By: #### AST #### [facility] [address] [place], [place] [address]CCJRWZOPIJbz 52-57-1446Cqnewtjvrv [Mass/Vol]2.83 mg/dLHigh 0.50 - 1.05[facility] Community HospitalComment on above:Performed By: #### CREAT #### [facility] [address] [place], [place] [address]Kxjtvwptmc [Mass/Vol]18 mL/min/1.80i7Iodczdlv>60[facility] Hospital of UnionComment on above:Performed By: #### CREAT #### [facility] [address] [place], [place] [address]Sidecvrkly [Mass/Vol]22 mL/min/1.74b3Spzkzqei>60[facility] Hospital of UnionComment on above:Result Comment: CALCULATIONS OF ESTIMATED GFR ARE PERFORMED USING THE MDRD STUDY EQUATION FOR THE IDMS-TRACEABLE CREATININE METHODS. CLIN CHEM 2007;53:766-72Performed By: #### CREAT #### [facility] [address] [place], [place] [address]IOVY ACIDon 97-11-9479Uddwy [Mass/Vol]5.2 mg/dLNormal2.3 - 6.7[facility] Hospital of UnionComment on above:Result Comment: Venipuncture immediately after or during the administration of Metamizole may lead to falsely low results. Testing should be performed immediately prior to Metamizole dosing.Performed By: #### URIC #### [facility] [address] [place], [place] [address]OMEK ACIDon 17-41-1771Umsze [Mass/Vol]8.2 mg/dLHigh2.3 - 6.7 [facility] Hospital of UnionComment on above:Result Comment: Venipuncture immediately after or during the administration of Metamizole may lead to falsely low results. Testing should be performed immediately prior to Metamizole dosing.Performed By: #### URIC #### [facility] [address] [place], [place] [address]Abwt,Urineon [id number],UrineSpecimen Description .CLEAN CATCH URINE Special Requests NOT REPORTED Culture ESCHERICHIA COLI >[id number] CFU/ML Report Status FINAL 08/04/2019 SUSCEPTIBILITY Organism [...] <=1 SUSCEPTIBLE Trimethoprim/Sulfa <=20 SUSCEPTIBLE Piperacillin/Tazobactam <=4 SUSCEPTIBLENormalProtestant HospitalComment on above:Performed By: #### DIME, LIP, CMPX, TROPI, BNP, CDP, PT #### [address] [place] [address] Jde Developer: Sami Dominguez MDBrain Natri. Peptideon 24-20-3953Kellbnmrwrz peptide B (Bld) [Mass/Vol]152 pg/mLNormal<300Protestant HospitalComment on above:Result Comment: Pro-BNP results cannot be compared to BNP results. Performed By: #### DIME, LIP, CMPX, TROPI, BNP, CDP, PT #### [facility] [address] [place] [address] Jde Developer: Sami Dominguez MDNatriuretic peptide B (Bld) [Mass/Vol]Pro-BNP Reference Range:[facility] on above:Result Comment: Rule Out: <300 Parra Zone: Age <50 300-450 Age 50-75 300-900 Age >75 300-1800 Usually represents mild to moderate HF but other cardiopulmonary causes cannot be ruled out. Rule In: Age <50 >450 Age 50-75 >900 Age >75 >1800Performed By: #### DIME, LIP, CMPX, TROPI, BNP, CDP, PT #### [facility] [address] [place] [address] Jde Developer: Sami Dominguez MDBrain Natriuretic Peptideon [id number] peptide B (Bld) [Mass/Vol]152 pg/mL<300[place], KYComment on above: Pro-BNP results cannot be compared to BNP results.Natriuretic peptide B (Bld) [Mass/Vol]Pro-BNP Reference Range:[place], KYCombeaumont hospital on above: Rule Out: <300 Parra Zone: Age <50 300-450 Age 50-75 300-900 Age >75 300-1800 Usually represents mild to moderate HF but other cardiopulmonary causes cannot be ruled out. Rule In: Age <50 >450 Age 50-75 >900 Age >75 >1800 CBC Auto Differentialon 18-10-7573Vbinecnfu (Bld) [#/Vol]0.00 10*3/[facility], KYBasophils/100 WBC (Bld)0 %0 - 2 %[facility], ARDifferential TypeNOT REPORTEDProMedica [facility], KYEosinophils (Bld) [#/Vol]0.08 10*3/[facility], KYEosinophils/100 WBC (Bld)1 %1 - 4 %[facility], ARErythrocyte distribution width (RBC) [Ratio]13.2 %11.8 - 14.4 %[facility], [place] Hematocrit (Bld) [Volume fraction]33.7 %Low36.3 - 47.1 %[facility], [place] Hemoglobin (Bld) [Mass/Vol]10.7 g/dLLow11.9 - 15.1 g/dLProMedica Flower Hospital, [place] Immature granulocytes (Bld) [#/Vol]0 %0[facility] [place], TORSTENImmature granulocytes (Bld) [#/Vol]0.00 10*3/uLProMedica Flower Hospital, TORSTENInterpretation and review of laboratory resultsAbnormalProMedica [facility] Hospital, TORSTENLymphocytes (Bld) [#/Vol]0.90 10*3/uLLowKnox Community Hospital [place], TORSTENLymphocytes/100 WBC (Bld)12 %Low24 - 43 %[facility], TORSTENMCH (RBC) [Entitic mass]30.2 pg25.2 - 33.5 pgProMedica Flower Hospital, [place] MCHC (RBC) [Mass/Vol]31.8 g/dL28.4 - 34.8 g/dLProMedica Flower Hospital, TORSTENMCV (RBC) [Entitic vol]95.2 fL82.6 - 102.9 fLProMedica Flower Hospital, TORSTENMonocytes (Bld) [#/Vol] 0.00 10*3/uLLowProMedica Flower Hospital, TORSTENMonocytes/100 WBC (Bld)0 %Low3 - 12 %[facility], TORSTENMorphology Geovany (Bld) [Interp]NormalProMedica Flower Hospital, TORSTENPlatelet mean volume (Bld) [Entitic vol]8.6 fL8.1 - 13.5 fLProMedica Flower Hospital, TORSTENPlatelets (Bld) [#/Vol]NOT REPORTEDProMedica [facility] Hospital, KYPlatelets (Bld) [#/Vol]335 10*3/uL [facility], TORSTENRBC (Bld) [#/Vol]3.54 10*6/uLLow3.95 - 5.11 m/uLProMedica Flower Hospital, ARRBC morphology finding Nom (Bld)NOT REPORTEDKearsarge, [place] Segmented neutrophils/100 WBC (Bld)87 %High36 - 65 %[facility], TORSTENSegs Absolute6.52[facility], ARWBC (Bld) [#/Vol]7.5 10*3/uLProMedica Flower Hospital, [place] WBC (Bld) [#/Vol]0.0 10*3/uL0.0 per 100 WBCProMedica Flower Hospital, ARWBC MorphologyNOT REPORTEDKearsarge, KYCBC with Diffon [id number]. Basophil0.00 k/uL Normal0.0-0.2[facility] Deweese HospitalComment on above:Performed By: #### DIME, LIP, CMPX, TROPI, BNP, CDP, PT #### [address] [place] [address] Jde Developer: Paul Muniz.Imm.Granulocyte0.00 k/uLNormal0.00-0.30[facility] HospitalComment on above:Performed By: #### DIME, LIP, CMPX, TROPI, BNP, CDP, PT #### [address] [place], [place] [address] Jde Developer: Paul Muniz.Neutrophil (Seg)6.52 k/uLNormal1.50-8.10Protestant HospitalComment on above:Performed By: #### DIME, LIP, CMPX, TROPI, BNP, CDP, PT #### [address] [place] [address] Jde Developer: Sami Dominguez MDBasophils/100 WBC (Bld)0 %Normal0-2Mer[facility] Deweese HospitalComment on above:Performed By: #### DIME, LIP, CMPX, TROPI, BNP, CDP, PT #### [address] [place], [place] [id number] Jde Developer: NARENDRA Munizosinophils (Bld) [#/Vol]0.08 10*3/uLNormal 0.00-0.44[facility] HospitalComment on above:Performed By: #### DIME, LIP, CMPX, TROPI, BNP, CDP, PT #### [address] [place], [place] [address] Jde Developer: NARENDRA Munizosinophils/100 WBC (Bld)1 %Normal1-4[facility] on above:Performed By: #### DIME, LIP, CMPX, TROPI, BNP, CDP, PT #### [address] [place], [place] [address] Jde Developer: Sami Dominguez MDImmature granulocytes (Bld) [#/Vol]0 %Normal0 [facility] on above:Performed By: #### DIME, LIP, CMPX, TROPI, BNP, CDP, PT #### [address] [place], [place] [address] Jde Developer: Racheal Munizmphocytes (Bld) [#/Vol]0.90 10*3/uLLow1.10-3.70 [facility] on above:Performed By: #### DIME, LIP, CMPX, TROPI, BNP, CDP, PT #### [address] [place], [place] [address] Jde Developer: Racheal Munizmphocytes/100 WBC (Bld)12 %Zqz33-83GwzxgProtestant HospitalComment on above:Performed By: #### DIME, LIP, CMPX, TROPI, BNP, CDP, PT #### [address] [place], [place] [address] Jde Developer: MARGARET Munizonocytes (Bld) [#/Vol]0.00 10*3/uLLow0.10-1.20 [facility] on above:Performed By: #### DIME, LIP, CMPX, TROPI, BNP, CDP, PT #### [facility] [address] [place], [place] [address] Jde Developer: MARGARET Munizonocytes/100 WBC (Bld)0 %Low3-12[facility] HospitalComment on above:Performed By: #### DIME, LIP, CMPX, TROPI, BNP, CDP, PT #### [facility] [address] [place] [address] Jde Developer: MARGARET Munizorphology Geovany (Bld) [Interp]NormalNormalOur [facility] Of [facility] HospitalComment on above:Performed By: #### DIME, LIP, CMPX, TROPI, BNP, CDP, PT #### [facility] [address] [place], [facility]83 Jde Developer: Sami Dominguez MDNeutrophil (Seg)87 %Qypx87-31Zzyut [facility]iffin HospitalComment on above:Performed By: #### DIME, LIP, CMPX, TROPI, BNP, CDP, PT #### [address] [place], [place] [address] Jde Developer: Sami Dominguez MDErythrocyte distribution width (RBC) [Ratio]13.2 %Sankdl69.8-14.4[facility] HospitalComment on above:Performed By: #### DIME, LIP, CMPX, TROPI, BNP, CDP, PT #### [address] [place] [address] Jde Developer: Sami Dominguez MDHematocrit (Bld) [Volume fraction]33.7 %Low 36.3-47.1MLutheran Hospital HospitalComment on above:Performed By: #### DIME, LIP, CMPX, TROPI, BNP, CDP, PT #### [facility] [address] [place] [address] Jde Developer: Sami Dominguez MDHemoglobin (Bld) [Mass/Vol]10.7 g/dLLow11.9-15.1 [facility] HospitalComment on above:Performed By: #### DIME, LIP, CMPX, TROPI, BNP, CDP, PT #### [address] [place], [facility]83 Jde Developer: SHIRLEY Muniz (RBC) [Entitic mass]30.2 tpXsyxdo98.2-33.5 [facility] HospitalComment on above:Performed By: #### DIME, LIP, CMPX, TROPI, BNP, CDP, PT #### [address] [place], [facility]83 Jde Developer: NOVA Muniz (RBC) [Mass/Vol]31.8 g/pAPdzbht43.4-34.8 [facility] HospitalComment on above:Performed By: #### DIME, LIP, CMPX, TROPI, BNP, CDP, PT #### [address] [place], [facility]83 Jde Developer: TOBIAS Muniz (RBC) [Entitic vol]95.2 rQUdcjes57.6-102.9 [facility] HospitalComment on above:Performed By: #### DIME, LIP, CMPX, TROPI, BNP, CDP, PT #### [address] [place], [facility]83 Jde Developer: BRYANT Muniz Automated0.0 per 100 WBCNormal0.0[facility] HospitalComment on above:Performed By: #### DIME, LIP, CMPX, TROPI, BNP, CDP, PT #### [address] [place], [facility]83 Jde Developer: Sami Muniz mean volume (Bld) [Entitic vol]8.6 fL Normal8.1-13.5[facility] HospitalComment on above:Performed By: #### DIME, LIP, CMPX, TROPI, BNP, CDP, PT #### [address] [place], [facility]83 Jde Developer: Prem MunizChildren[facility]) [#/Vol]335 10*3/vBGfkikl766-468 [facility] HospitalComment on above:Performed By: #### DIME, LIP, CMPX, TROPI, BNP, CDP, PT #### [facility] [address] [place] [address] Jde Developer: ARNIE Muniz ([facility]) [#/Vol]3.54 10*6/uLLow3.95-5.11[facility] Deweese HospitalComment on above:Performed By: #### DIME, LIP, CMPX, TROPI, BNP, CDP, PT #### [address] [place] [address] Jde Developer: CAMILA Muniz ([facility]) [#/Vol]7.5 10*3/uLNormal3.5-11.3MLutheran Hospital HospitalComment on above:Performed By: #### DIME, LIP, CMPX, TROPI, BNP, CDP, PT #### [address] [place] [address] Jde Developer: Ruddy Muniz PerformedNOT REPORTEDNormalMercy Deweese HospitalComment on above:Performed By: #### DIME, LIP, CMPX, TROPI, BNP, CDP, PT #### [address] [place], [facility]83 Jde Developer: Prem Muniz ([facility]) [#/Vol]NOT REPORTEDNormalMercy Deweese HospitalComment on above:Performed By: #### DIME, LIP, CMPX, TROPI, BNP, CDP, PT #### [address] [place] [address] Jde Developer: ARNIE Muniz morphology finding Nom ([facility])NOT REPORTED NormalMercy Deweese HospitalComment on above:Performed By: #### DIME, LIP, CMPX, TROPI, BNP, CDP, PT #### [facility] [address] [place], [place] [id number] Jde Developer: CAMILA Muniz MorphologyNOT REPORTEDNormalProtestant HospitalComment on above:Performed By: #### DIME, LIP, CMPX, TROPI, BNP, CDP, PT #### [facility] [address] [place] [address] Jde Developer: Sami Dominguez MDCTA CHEST ABDOMEN PELVIS W CONTRASTon 08-02-2019 CTA CHEST ABDOMEN PELVIS W CONTRASTEXAMINATION: CTA OF THE CHEST, ABDOMEN AND PELVIS [...] Signed by: Yunier Yang MD 08/02/19 Final resultNormalMercy [facility] Incoming Radiant Results From [employer] - 08/02/2019 1:21 PM EDT EXAMINATION: CTA [...] recommended. Reference: J Am Danika Radiol 2013;10:675-681 [place], KYDONAVANAMINATION: CTA OF THE CHEST, ABDOMEN AND PELVIS WITH CONTRAST, 08/02/2019 12:39 pm TECHNIQUE: CTAof the chest, abdomen and pelvis was performed [...] unremarkable. No evidence for mediastinal or hilar adenopathy.The heart is normal in size without pericardial [...] disease. Ureters are unobstructed. Bowel: Small hiatal hernia.Small bowel is normal in caliber. No bowel obstruction. There is subtle inflammation adjacent to the descending colon. No free intraperitoneal air or fluid identified. Appendix is not clearly visualized. Pelvis: 4.1 x 3.5 cm left adnexal cyst. Uterus is absent. Aorta: The abdominal aorta, celiac axis, SMA, renal arteries, GLEN, and iliac arteries are normal in course and caliber without aneurysmaldilatation or dissection.[facility], KYNo evidence for aneurysmal dilatation or dissection of the aorta or its branches. Findings most compatible with polycystic kidney disease. Subtle inflammation adjacent to the descending colon is suggestive of subtle colitis. No perforation or abscess formation. No free intraperitoneal air or fluid.4.1 cm benign appearing ovarian cyst No follow-up imaging is recommended. Reference: J Am Danika Radiol 2013;10:675-681[facility], KYComp Metabolic Pr/rfx MGon 08-02-2019(cont.) [facility] HospitalComment on above:Result Comment: Average GFR for 40- 49 years old: 99 mL/min/1.73sq m Chronic Kidney Disease: <60 mL/min/1.73sq m Kidney failure: <15 mL/min/1.73sq m eGFR calculated using average adult body mass. Additional eGFR calculator available at: http://www.[employer]/multiple_crcl_2012.htmPerformed By: #### DIME, LIP, CMPX, TROPI, BNP, CDP, PT #### [address] [place] [address] Jde Developer: Sami Dominguez MDAlbumin [Mass/Vol]4.4 g/dLNormal3.5-5.2MOhioHealth Berger HospitalComment on above:Performed By: #### DIME, LIP, CMPX, TROPI, BNP, CDP, PT #### [address] [place] [address] Jde Developer: Sami Dominguez MDAlbumin/Globulin [Mass ratio]1.0 {ratio}Normal 1.0-2.5Pro[facility]ant HospitalComment on above:Performed By: #### DIME, LIP, CMPX, TROPI, BNP, CDP, PT #### [address] [place] [address] Jde Developer: Jacques Munizkaline Phos98 U/TMtuzln40-407HsqjhProtestant HospitalComment on above:Performed By: #### DIME, LIP, CMPX, TROPI, BNP, CDP, PT #### [address] [place], [place] [address] Jde Developer: Sami Dominguez MDALT [Catalytic activity/Vol]16 U/LNormal5-33[facility] HospitalComment on above:Performed By: #### DIME, LIP, CMPX, TROPI, BNP, CDP, PT #### [address] [place], [place] [address] Jde Developer: Dianna Muniz gap [Moles/Vol]18 mmol/LHigh9-17[facility]ant HospitalComment on above:Performed By: #### DIME, LIP, CMPX, TROPI, BNP, CDP, PT #### [address] [place], [place] [address] Jde Developer: BLANCA Muniz [Catalytic activity/Vol]18 U/LNormal<32[facility]ant HospitalComment on above:Performed By: #### DIME, LIP, CMPX, TROPI, BNP, CDP, PT #### [address] [place], [place] [address] Jde Developer: Sami Dominguez MDBilirubin Ql (U)0.31 mg/dLNormal0.3-1.2[facility] hospitaly [facility] Administration Medical CenterComment on above:Performed By: #### DIME, LIP, CMPX, TROPI, BNP, CDP, PT #### [address] [place], [place] [address] Jde Developer: Sami Dominguez MDBUN/CRE Fryla80Vcmgnd0-26Aoqat [facility] Comment on above:Performed By: #### DIME, LIP, CMPX, TROPI, BNP, CDP, PT #### [address] [place], [facility]83 Jde Developer: ABRAHAM Munizalcium [Mass/Vol]9.7 mg/dLNormal8.6-10.4[facility] HospitalComment on above:Performed By: #### DIME, LIP, CMPX, TROPI, BNP, CDP, PT #### [address] [place], [facility]83 Jde Developer: ABRAHAM Munizhloride [Moles/Vol]95 mmol/MQec45-517Yifer Tiffin HospitalComment on above:Performed By: #### DIME, LIP, CMPX, TROPI, BNP, CDP, PT #### [address] [place], [facility]83 Jde Developer: Sami Dominguez MDCO2 [Moles/Vol]18 mmol/CBbb60-17Pzgsb Tiffin HospitalComment on above:Performed By: #### DIME, LIP, CMPX, TROPI, BNP, CDP, PT #### [address] [place], [facility]83 Jde Developer: ABRAHAM Munizreatinine [Mass/Vol]3.07 mg/dLHigh0.50-0.90[facility] HospitalComment on above:Performed By: #### DIME, LIP, CMPX, TROPI, BNP, CDP, PT #### [address] [place], [facility]83 Jde Developer: LUISA Muniz, Amer20 mL/minLow>60MerSt. Rita's Hospital HospitalComment on above:Performed By: #### DIME, LIP, CMPX, TROPI, BNP, CDP, PT #### [address] [place], [place] [id number] Jde Developer: LUISA Muniz,non Amer17 mL/minLow>60MerSt. Rita's Hospital HospitalComment on above:Performed By: #### DIME, LIP, CMPX, TROPI, BNP, CDP, PT #### [address] [place], [facility]83 Jde Developer: Sami Dominguez MDGlucose [Mass/Vol]89 mg/cYNdkqnb60-77Ehkjb Deweese HospitalComment on above:Performed By: #### DIME, LIP, CMPX, TROPI, BNP, CDP, PT #### [address] [place], [place] [id number] Jde Developer: Sami Dominguez MDPotassium [Moles/Vol]3.9 mmol/LNormal3.7-5.3[facility] hospitaly Deweese HospitalComment on above:Performed By: #### DIME, LIP, CMPX, TROPI, BNP, CDP, PT #### [address] [place] [address] Jde Developer: Sami Dominguez MDProtein [Mass/Vol]8.8 g/dLHigh6.4-8.3[facility]aultman hospitaly Deweese HospitalComment on above:Performed By: #### DIME, LIP, CMPX, TROPI, BNP, CDP, PT #### [address] [place], [facility]83 Jde Developer: RAMESH Munizodium [Moles/Vol]131 mmol/IYio020-314AzjzqProtestant HospitalComment on above:Performed By: #### DIME, LIP, CMPX, TROPI, BNP, CDP, PT #### [address] [place], [facility]83 Jde Developer: RAMESH Muniztaging:[facility] HospitalComment on above:Result Comment: Stage 1: Some kidney damage normal GFR Stage 2: Mild kidney damage GFR 60-89 Stage 3: Moderate kidney damage GFR 30-59 Stage 4: Severe kidney damage GFR 15-29 Stage 5: Severe kidney damage GFR <15 ESRD - chronic treatment by dialysis or transplantPerformed By: #### DIME, LIP, CMPX, TROPI, BNP, CDP, PT #### [address] [place], [facility]83 Jde Developer: Sami Dominguez MDUrea nitrogen [Mass/Vol]39 mg/dLHigh6-20Protestant HospitalComment on above:Performed By: #### DIME, LIP, CMPX, TROPI, BNP, CDP, PT #### [facility] [address] [place] [address] Jde Developer: Sami Dominguez [facility]RISTOWomprehensive Metabolic Panel w/ Reflex to MGon 10-54-1017Qgvugbr [Mass/Vol]4.4 g/dL3.5 - 5.2 g/dLAvita Health [facility]- [place], [place] Albumin/Globulin [Mass ratio]1.0 {ratio}[facility]- [place], KYALP [Catalytic activity/Vol]98 U/L35 - 104 U/LMkettering health [facility]field [facility]- [place], KYALT [Catalytic activity/Vol] 16 U/L5 - 33 U/LMkettering health springfield [facility]- [place], KYAnion gap [Moles/Vol]18 mmol/LHigh9 - 17 mmol/LMaultman hospitaly Health- [place], KYAST [Catalytic activity/Vol]18 U/L<32[facility]- [place], KYBilirubin Ql (U)0.31 mg/dL0.3 - 1.2 mg/dLAvita Health System [facility]- [place], KYBun/Cre Ratio13 [facility]- [place], KYCalcium [Mass/Vol]9.7 mg/dL8.6 - 10.4 mg/dLAvita Health System [facility]- [place], KYChloride [Moles/Vol]95 mmol/LLow98 - 107 mmol/LMkettering health [facility]- [place], KYCO2 [Moles/Vol]18 mmol/LLow20 - 31 mmol/LMaultman hospitaly Health- [place], KYCreatinine [Mass/Vol] 3.07 mg/dLHigh0.5 - 0.9 mg/dLAvita Health [facility]- [place], KYGFR Kpeunomr79 mL/min Low>60[facility]- [place], KYGFR Non- Ddfqfepu11 mL/minLow>60[facility]- [place], KYGlucose [Mass/Vol]89 mg/dL70 - 99 mg/dLAvita Health [facility]- [place], KYInterpretation and review of laboratory resultsAbnormalMer Health- [place], KYPotassium [Moles/Vol]3.9 mmol/L3.7 - 5.3 mmol/[facility], KYProtein [Mass/Vol]8.8 g/dLHigh6.4 - 8.3 g/dLProMedica [facility]lower [facility], KYSodium [Moles/Vol]131 mmol/ERgl974 - 144 mmol/[facility], KYUrea nitrogen [Mass/Vol]39 mg/dLHigh6 - 20 mg/dL [facility], KYD-Dimer Teston [id number]-Dimer Test1.15 mg/L FEUHigh 0.19-0.50Protestant HospitalComment on above:Result Comment: Elevated levels of D dimer can be seen in any state of coagulation activation including DVT, PE, arterial thrombosis, DIC, inflamatory disease, trauma, malignancy, sepsis, infection, hematoma, liver disease, post surgical state, , atherosclerosis, old age. When combined with a low clinical probability, a D dimer value of <0.50 mg/L is considered negative for DVT and PE (negative predictive value of 98%).Performed By: #### DIME, LIP, CMPX, TROPI, BNP, CDP, PT #### [address] [place] [address] Jde Developer: Sami Dominguez, MDD-Dimer, Quantitativeon [id number]-Dimer, Quant 1.15[place], KYComment on above: Elevated levels of D dimer [...] of 98%). Interpretation and review of laboratory resultsAbnormalProMedica [facility]lower Hospital, [place] Lactate, Sepsison 83-80-9600Rzeayw Acid, Sepsis3.6 mmol/LHigh0.5-1.9Protestant HospitalComment on above:Performed By: #### LACDS #### [facility] [address] [place] [address] Jde Developer: Omayra Muniz Acid,Sep WbldNOT REPORTEDNormal0.5-1.9 [facility] HospitalComment on above:Performed By: #### LACDS #### [address] [place] [id number] Jde Developer: Sami Dominguez MDInterpretation and review of laboratory results AbnormalProMedica Flower Hospital, KYLactic Acid, Sepsis3.6 mmol/LHigh0.5 - 1.9 mmol/L [facility], KYLactic Acid, Sepsis, Whole BloodNOT REPORTED0.5 - 1.9 mmol/L [facility], KYLactic Acidon 63-71-5464Koutemw [Moles/Vol]1.0 mmol/LNormal 0.5-2.2MOhioHealth Berger HospitalComment on above:Performed By: #### DIME, LIP, CMPX, TROPI, BNP, CDP, PT #### [address] [place] [address] Jde Developer: Gabriela Munizctate [Moles/Vol]NOT REPORTEDNormal0.7-2.1MOhioHealth Berger HospitalComment on above:Performed By: #### DIME, LIP, CMPX, TROPI, BNP, CDP, PT #### [address] [place] [id number] Jde Developer: Omayra Muniz, Plasmaon [id number] [Moles/Vol]1 mmol/L0.5 - 2.2 mmol/LMWilson [facility] Hospital, KYLactic Acid, Whole Blood NOT REPORTED0.7 - 2.1 mmol/LMWilson Memorial Hospital, KYLipaseon 76-14-8089Oyebar [Catalytic activity/Vol]38 U/NRdbzeo27-50LqignProtestant HospitalComment on above: Performed By: #### DIME, LIP, CMPX, TROPI, BNP, CDP, PT #### [address] [place] [address] Jde Developer: Sami Dominguez MDLipase [Catalytic activity/Vol]38 U/L13 - 60 U/L [facility], KYMetabolic Panelon 75-66-9801BTY/1.73 sq M predicted among non-blacks MDRD (S/P/Bld) [Vol rate/Area][facility], ARComment on above: Stage 1: Some kidney damage normal GFR Stage 2: Mild kidney damage GFR 60-89 Stage 3: Moderate kidney damage GFR 30-59 Stage 4: Severe kidney damage GFR 15-29 Stage 5: Severe kidney damage GFR <15 ESRD - chronic treatment by dialysis or transplant Average GFR for 40-49 years old: 99 mL/min/1.73sq m Chronic Kidney Disease: <60 mL/min/1.73sq m Kidney failure: <15 mL/min/1.73sq m eGFR calculated using average adult body mass. Additional eGFR calculator available at: http://www.Picture[employer] Universe/multiple_crcl_2012.htm Microscopic Urinalysison [id number], UANOT REPORTEDNoneMey Health- [place], KYBacteria, UA1+AbnormalNoneMey Health- [place], KYCasts UANOT REPORTED/LPF [facility]- [place], KYCrystals UANOT REPORTEDNone /HPFRegency Hospital Companycy Health- [place], [place] Epithelial Cells UA2 TO 5[facility]- [place], KYInterpretation and review of laboratory resultsAbnormalMercy Health- [place], KYMucus, UANOT REPORTEDNoneMercy Health- [place], KYOther Observations UANOT REPORTEDNOT REQ.[facility]- [place], KYRBC (U) [#/Vol]NoneMercy Health- [place], KYRenal Epithelial, UrineNOT REPORTED0 /HPF [facility]- [place], KYTrichomonas, UANOT REPORTEDNoneMercy Health- [place], KYWBC, UA50 TO 100[facility]- [place], KYYeast, UANOT REPORTEDNoneMercy Health- [place], [place]-[facility]- [place], KYPTon [id number] Coag (PPP) [Relative time]1.0 {INR}Normal 0.9-1.2[facility] Medical CenterComment on above:Performed By: #### DIME, LIP, CMPX, TROPI, BNP, CDP, PT #### [facility] [address] [place], [facility]83 Jde Developer: BEVERLEY Muniz Coag (PPP) [Time]10.0 sNormal9.7-12.2MBlanchard Valley Health [facility] on above:Performed By: #### DIME, LIP, CMPX, TROPI, BNP, CDP, PT #### [facility] [address] [place], [facility]83 Jde Developer: Amie Munizime-INRon 60-44-9562LGG Coag (PPP) [Relative time]1.0 {INR}[place], KYPT Coag (PPP) [Time]10 [facility], [place] Troponinon [id number] I.cardiac [Mass/Vol]ng/mLNormal<0.03Pro[facility] HospitalCombeaumont hospital on above:Result Comment: Troponin T results cannot be compared to Troponin-I results.Performed By: #### DIME, LIP, CMPX, TROPI, BNP, CDP, PT #### [address] [place], [facility]83 Jde Developer: Raul Muniz I.cardiac [Mass/Vol]NormalParkview Health [facility]pelier Hospital on above:Result Comment: Reference Range: <0.03 Within reference range. 0.03-0.09 Possible myocardial damage. Repeat at appropriate intervals to rule out chronic elevation. >= 0.10 Indicative of myocardial damage. Patients with high levels of Biotin oral intake (i.e >5mg/day) may have falsely decreased Troponin T levels. Samples collected within 8 hours of biotin intake may require additional information for diagnosis.Performed By: #### DIME, LIP, CMPX, TROPI, BNP, CDP, PT #### [address] [place], [facility]83 Jde Developer: Raul Muniz I.cardiac [Mass/Vol]NOT REPORTEDNormal 0-14Protestant HospitalComment on above:Performed By: #### DIME, LIP, CMPX, TROPI, BNP, CDP, PT #### [address] [place] [address] Jde Developer: Raul Muniz I.cardiac [Mass/Vol][place] Comment on above:Reference Range: <0.03 Within reference range. 0.03-0.09 Possible myocardial damage. Repeat at appropriate intervals to rule out chronic elevation. >= 0.10 Indicative of myocardial damage. Patients with high levels of Biotin oral intake (i.e >5mg/day) may have falsely decreased Troponin T levels. Samples collected within 8 hours of biotin intake may require additional information for diagnosis. Troponin T.cardiac [Mass/Vol]ug/L<0.03 ng/mLKearsarge, KYComment on above:Troponin T results cannot be compared to Troponin-I results.Troponin, High SensitivityNOT REPORTED0 - 14 ng/LMGrant, KYTrana luisa I.cardiac [Mass/Vol]ng/mLNormal<0.03Protestant HospitalComment on above:Result Comment: Troponin T results cannot be compared to Troponin-I results.Performed By: #### DIME, LIP, CMPX, TROPI, BNP, CDP, PT #### [address] [place] [address] Jde Developer: Raul Muniz I.cardiac [Mass/Vol]NormalProtestant HospitalComment on above:Result Comment: Reference Range: <0.03 Within reference range. 0.03-0.09 Possible myocardial damage. Repeat at appropriate intervals to rule out chronic elevation. >= 0.10 Indicative of myocardial damage. Patients with high levels of Biotin oral intake (i.e >5mg/day) may have falsely decreased Troponin T levels. Samples collected within 8 hours of biotin intake may require additional information for diagnosis.Performed By: #### DIME, LIP, CMPX, TROPI, BNP, CDP, PT #### [facility] [address] [place] [address] Jde Developer: Raul Muniz I.cardiac [Mass/Vol]NOT REPORTEDNormal 0-14Protestant HospitalComment on above:Performed By: #### DIME, LIP, CMPX, TROPI, BNP, CDP, PT #### [facility] [address] [place], [place] [id number] Jde Developer: Raul Muniz I.cardiac [Mass/Vol][place], [place] Comment on above:Reference Range: <0.03 Within reference range. 0.03-0.09 Possible myocardial damage. Repeat at appropriate intervals to rule out chronic elevation. >= 0.10 Indicative of myocardial damage. Patients with high levels of Biotin oral intake (i.e >5mg/day) may have falsely decreased Troponin T levels. Samples collected within 8 hours of biotin intake may require additional information for diagnosis. Troponin T.cardiac [Mass/Vol]ug/L<0.03 ng/mLKearsarge, KYComment on above:Troponin T results cannot be compared to Troponin-I results.Troponin, High SensitivityNOT REPORTED0 - 14 ng/LMGrant, KYUA w/Reflex Cultureon [id number] Acid,UrNegativeNormalNEGProtestant HospitalComment on above:Performed By: #### DIME, LIP, CMPX, TROPI, BNP, CDP, PT #### [facility] [address] [place], [place] [id number] Jde Developer: Rolando Munizirubin, SemiQt,UrNegativeNormalWhite HospitalComment on above:Performed By: #### DIME, LIP, CMPX, TROPI, BNP, CDP, PT #### [facility] [address] [place], [place] [id number] Jde Developer: Ayleen Muniz ()YELLOWNoalYOhioHealth Grant Medical Center Comment on above:Performed By: #### DIME, LIP, CMPX, TROPI, BNP, CDP, PT #### [facility] [address] [place] [address] [place], [place] [id number] Jde Developer: Sami Dominguez MDGlucose Ql (U)NegativeNormalNEGProtestant HospitalComment on above:Performed By: #### DIME, LIP, CMPX, TROPI, BNP, CDP, PT #### [facility] [address] [place], [facility]83 Jde Developer: Sami Dominguez MDHemoglobin, Ur1+AbnormalNEGProtestant Hospital Comment on above:Performed By: #### DIME, LIP, CMPX, TROPI, BNP, CDP, PT #### [address] [place], [place] [id number] Jde Developer: Sami Dominguez MDLeukocyte esterase Test strip Ql (U)MODERATE AbnormalNEGProtestant HospitalComment on above:Performed By: #### DIME, LIP, CMPX, TROPI, BNP, CDP, PT #### [address] [place], [place] [id number] Jde Developer: Sami Dominguez MDNitrite,UrNegativeNoCleveland Clinic [facility] Comment on above:Performed By: #### DIME, LIP, CMPX, TROPI, BNP, CDP, PT #### [address] [place], [facility]83 Jde Developer: Sami Dominguez [facility] (U)6.0 [pH]Normal5.0-9.0[facility] Comment on above:Performed By: #### DIME, LIP, CMPX, TROPI, BNP, CDP, PT #### [address] [place], [place] [address]383 Jde Developer: BETTE Munizrotein Ql (U)TRACEAbnormalWhite HospitalComment on above:Performed By: #### DIME, LIP, CMPX, TROPI, BNP, CDP, PT #### [facility] [address] [place], [place] [id number] Jde Developer: RAMESH Munizpecific gravity (U) [Rel density]1.010Normal 1.010-1.020Protestant HospitalComment on above:Performed By: #### DIME, LIP, CMPX, TROPI, BNP, CDP, PT #### [facility] [address] [place], [place] [id number] Jde Developer: Sami Dominguez [facility]DS[facility] Comment on above:Performed By: #### DIME, LIP, CMPX, TROPI, BNP, CDP, PT #### [facility] [address] [place], [place] [id number] Jde Developer: Lakshmi Munizbilinogen,UrNormalSumma Health Barberton CampusComment on above:Performed By: #### DIME, LIP, CMPX, TROPI, BNP, CDP, PT #### [address] [place], [place] [id number] Jde Developer: Sami Dominguez [facility] Comment on above:Performed By: #### DIME, LIP, CMPX, TROPI, BNP, CDP, PT #### [address] [place], [place] [id number] Jde Developer: Sami Dominguez MDUrinalysis Reflex to Cultureon 08-02-2019 Bilirubin UrineNegativeNEGATIVEMercy Health- [place], KYColor, UAYELLOWYELLOWMercy Health- [place], KYGlucose, UrNegativeNEGATIVEMercy Health- [place], KYInterpretation and review of laboratory resultsAbnormalMercy Health- [place], KYKetones Ql (U)Negative NEGATIVEMercy Health- [place], KYLeukocyte esterase Test strip Ql (U)MODERATEAbnormal NEGATIVEMercy Health- [place], KYNitrite, UrineNegativeNEGATIVEMercy Health- [place], [place] pH, UA6.0[facility]- [place], KYProtein (U) [Mass/Vol]TRACEAbnormalNEGATIVEKettering [facility] Hospital- [place], KYSpecific [place], UA1.010[facility] [place], KYTurbidity UACLEAR CLEARKnox Community Hospital [place], KYUrinalysis CommentsNOT REPORTEDKettering Memorial Hospital- [place], [place] Urine Hgb1+AbnormalNEGATIVEKettering Memorial Hospital- [place], KYUrobilinogen, UrineNormalNormal [facility], KYUrinalysis,Microon 08-02-2019-----NormalOur Lady Of Mercy Hospital HospitalComment on above:Performed By: #### DIME, LIP, CMPX, TROPI, BNP, CDP, PT #### [address] [place] [id number] Jde Developer: Sami Dominguez MDBacteria LM.HPF (Urine sed) [#/Area]1+Abnormal NONEProtestant HospitalComment on above:Performed By: #### DIME, LIP, CMPX, TROPI, BNP, CDP, PT #### [address] [place] [id number] Jde Developer: Sami Dominguez MDEpithelial cells LM.HPF (Urine sed) [#/Area]2 TO 0Wkvdlr1-19DwxroProtestant HospitalComment on above:Performed By: #### DIME, LIP, CMPX, TROPI, BNP, CDP, PT #### [address] [place] [id number] Jde Developer: ARNIE Muniz (U) [#/Vol]NoneNormal0-2MOhioHealth Berger Hospital Comment on above:Performed By: #### DIME, LIP, CMPX, TROPI, BNP, CDP, PT #### [address] [place] [address] Jde Developer: JENNIFER MunizBC (U) [#/Vol]50 TO 176Pdbuzk9-5BfwcrProtestant HospitalComment on above:Performed By: #### DIME, LIP, CMPX, TROPI, BNP, CDP, PT #### [address] [place] [address] Jde Developer: Lynne Muniz sediment LM Ql (Urine sed)NOT REPORTED NormalNONEMey Deweese HospitalComment on above:Performed By: #### DIME, LIP, CMPX, TROPI, BNP, CDP, PT #### [address] [place] [address] Jde Developer: ABRAHAM Munizasts LM.LPF (Urine sed) [#/Area]NOT REPORTED NormalMercy Deweese HospitalComment on above:Performed By: #### DIME, LIP, CMPX, TROPI, BNP, CDP, PT #### [address] [place] [address] Jde Developer: ABRAHAM Munizrystals LM Nom (Urine sed)NOT REPORTEDNormalNONE [facility] HospitalComment on above:Performed By: #### DIME, LIP, CMPX, TROPI, BNP, CDP, PT #### [address] [place] [address] Jde Developer: Sami Dominguez MDEpithelial, RenalNOT CUOCUIBESqfcbf3Yzpsz Deweese HospitalComment on above:Performed By: #### DIME, LIP, CMPX, TROPI, BNP, CDP, PT #### [address] [place] [address] Jde Developer: MARGARET Munizucus StrandsNOT REPORTEDNormalNONEMercy Deweese HospitalComment on above:Performed By: #### DIME, LIP, CMPX, TROPI, BNP, CDP, PT #### [address] [place] [address] Jde Developer: Sami Dominguez MDOther ObservationsNOT REPORTEDNormalNREQMercy Deweese HospitalComment on above:Performed By: #### DIME, LIP, CMPX, TROPI, BNP, CDP, PT #### [facility] [address] [place], [place] [id number] Jde Developer: Sweta MunizNOT REPORTEDNormalNONEMeKPC Promise of Vicksburg HospitalComment on above:Performed By: #### DIME, LIP, CMPX, TROPI, BNP, CDP, PT #### [facility] [address] [place], [place] [phone] Jde Developer: Sami Dominguez MDYeast LM Ql (Urine sed)NOT REPORTEDNormalNONE [facility] HospitalComment on above:Performed By: #### DIME, LIP, CMPX, TROPI, BNP, CDP, PT #### [facility] [address] [place], [place] [id number] Jde Developer: SARAH Muniz CHEST PORTABLEon [id number] CHEST PORTABLE EXAMINATION: ONE XRAY VIEW OF [...] Signed by: Cullen Ngo MD 08/02/19 Final resultNormalProtestant HospitalEXAMINATION: ONE XRAY VIEW OF THE CHEST 08/02/2019 12:59 pm COMPARISON: None. HISTORY: ORDERING SYSTEM PROVIDED HISTORY: CP TECHNOLOGIST PROVIDED HISTORY: CP FINDINGS: Heart size and pulmonary vessels are within normal limits. Lungs are clear. No focal infiltrates or significant pleural effusions are seen. There is no acute osseous abnormality. Monitor leads overlie the chest.[facility], Kerrie acute cardiopulmonary process.[facility], Orlando Carmona Incoming Radiant Results From [employer]/Your [employer] - 08/02/2019 1:10 PM EDT EXAMINATION: ONE [...] the chest. IMPRESSION: No acute cardiopulmonary process. [facility], [place] Vital Signs Date TimeVital SignValuePerforming XsgpworldNucwgyif27-72-5903 14:23-0400Body .9 cmGina Risaliti AUTO MECHANICS INSTRUCTOR Work Phone: [phone] [place], [place] [address] 14:23-0400Body mass index (BMI) [Ratio]34.77 kg/m2Gina Risaliti AUTO MECHANICS INSTRUCTOR Work Phone: [phone] [place] [address]-22-2025 14:23-0400Body qxewxy47.46 kgGina Risaliti AUTO MECHANICS INSTRUCTOR Work Phone: [phone] [place] [address]-22-2025 14:23-0400Diastolic blood ajbeyzqe85 mm[Hg]Calista Risaliti AUTO MECHANICS INSTRUCTOR Work Phone: [phone] [place] [address]-22-2025 14:23-0400Heart rate83 /min Calista Risaliti AUTO MECHANICS INSTRUCTOR Work Phone: [phone] [place] [address]-22-2025 14:23-9107ZuI1% (BldA) [Mass fraction]99 %Calista Risaliti AUTO MECHANICS INSTRUCTOR Work Phone: [phone] [place] [address]-22-2025 14:23-0400Systolic blood mm[Hg]Calista Risaliti AUTO MECHANICS INSTRUCTOR Work Phone: [phone] [place], [place] [address]25 12:33-0400Body kloclh393.94 Desi Wong MD Work Phone: [facility]08-19-2025 12:33-0400 Body hafnxnmxkwe98.9 [degF]Perri Wong MD Work Phone: [facility]08-19-2025 12:33-0400 Body uehlxg47.05 kgPerri Wong MD Work Phone: [facility]08-19-2025 12:33-0400 Diastolic blood dlizzgmk44 mm[Hg]Perri Wong MD Work Phone: 1([phone] [place], [place] 5627008-19-2025 12:33-0400 Heart rate79 /minPerri Wong MD Work Phone: [phone])319-[address] [place], [place] 5627008-19-2025 12:33-0400 Respiratory rate18 /minPerri Wong MD Work Phone: 1(611)158-[address] [place], [place] 5627008-19-2025 12:33-0400 SaO2% (BldA) [Mass fraction]98 %Perri Wong MD Work Phone: [phone])[phone]08-19-2025 12:33-0400 Systolic blood qsfgkipr979 mm[Hg]Perri Wong MD Work Phone: [phone]07-07-2025 08:08-0400 Body xsvdsa126.9 cmMing Alexis DO Work Phone: [phone] [place], [place] [address]Mjutmcmutu65-34-2271 08:08-0400Body mass index (BMI) [Ratio]34.69 kg/j3Ymvfzpz Alexis DO Work Phone: 1([phone] [place], [place] [address]Pujggslkrm41-68-0774 08:08-0400Body hijczm81.28 kgMing Alexis DO Work Phone: [phone] CenterMmpzlijgxq18-70-0732 08:08-0400Heart rate78 /min Ming Espinoza DO Work Phone: [phone] [place], [place] [address]Dnevxruuci92-55-9139 08:08-4101QsA5% (BldA) [Mass fraction]99 %Ming Espinoza DO Work Phone: [phone] CenterUntmosewum94-80-3034 14:24-0400Body mass index (BMI) [Ratio]34.77 kg/x1KlyllfjMing Espinoza DO Work Phone: [facility] CenterAakshiuzvp16-53-2493 14:24-0400Body yxmufm98.46 kgJefacundo Espinoza DO Work Phone: [phone] CenterHoejbchgft68-76-6894 14:24-0400Diastolic blood nbsceoip89 mm[Hg]Minglizz Espinoza DO Work Phone: [facility] CenterYdxnuddkmo99-20-2675 14:24-0400Heart rate78 /min Ming Espinoza DO Work Phone: [facility] CenterRhatgaemkp40-34-6342 14:24-3636AlE2% (BldA) [Mass fraction]97 %Ming Espinoza DO Work Phone: [facility] CenterZlcyqmwqhu61-16-5166 14:24-0400Systolic blood rmaoinen527 mm[Hg]Minglizz Espinoza DO Work Phone: [phone] [place], [place] [address]Buywdpxnky65-72-0024 08:19-0500Body qalhnt645.9 cmHuylizz Espinoza DO Work Phone: [facility] CenterIoekibowiw85-27-8355 08:19-0500Body mass index (BMI) [Ratio]34.2 kg/s5Vzocfnalizz Espinoza DO Work Phone: [facility] CenterGclptgjsfw30-79-1863 08:19-0500Body mynnib12.1 kg Ming Espinoza DO Work Phone: [facility] CenterGpdxqttgre27-56-1027 08:19-0500Diastolic blood cdvfiwrp99 mm[Hg]Ming Alexis DO Work Phone: [facility] CenterEotiqfpdyi47-64-2739 08:19-0500Heart rate88 /min Minglizz Espinoza DO Work Phone: [facility] CenterWxdhnbjroq43-96-6340 08:19-4371DbL8% (BldA) [Mass fraction]98 %Ming Espinoza DO Work Phone: [facility] CenterZcsyxfyhyd90-09-9991 08:19-0500Systolic blood milpjhjc261 mm[Hg]Minglizz Espinoza DO Work Phone: [facility] CenterBvmabvnorw23-12-4517 08:34-0400Body temperature 97.81 [degF]Lucero Hudson AUTO MECHANICS INSTRUCTOR Work Phone: [facility] CenterMulsvnhjql65-30-4087 08:34-0400Diastolic blood phkhyait43 mm[Hg]Lucero Hudson AUTO MECHANICS INSTRUCTOR Work Phone: [facility] CenterKrtkbjcgjb54-81-0889 08:34-0400Heart rate83 /min Lucero Hudson AUTO MECHANICS INSTRUCTOR Work Phone: [facility] CenterAqhjhejaxk97-89-8754 08:34-9940NzM2% (BldA) [Mass fraction]98 %Lucero Hudson AUTO MECHANICS INSTRUCTOR Work Phone: [facility] CenterDakffyqbia15-69-1142 08:34-0400Systolic blood kgvpuexx366 mm[Hg]Lucero Hudson AUTO MECHANICS INSTRUCTOR Work Phone: [facility] CenterMusamjzurg23-97-7161 17:34-0400Body oxxjzz227.48 cmAPRN Andreia Jerry Work Phone: [facility]06-10-2024 17:34-0400 Body mass index (BMI) [Ratio]31.8 kg/m2APRN Andreia Jerry Work Phone: [facility]06-10-2024 17:34-0400 Body kbzespkuzrv661.3 [degF]ELECTRONEURODIAGNOSTIC TECHNOLOGIST Andreia Jerry Work Phone: [facility]06-10-2024 17:34-0400 Body kycudl57.92 kgAPRN Andreia Jerry Work Phone: [facility]06-10-2024 17:34-0400 Diastolic blood amcyohwe04 mm[Hg]ELECTRONEURODIAGNOSTIC TECHNOLOGIST Andreia Jerry Work Phone: [facility]06-10-2024 17:34-0400 Heart rate88 /minAPRN Andreia Jerry Work Phone: [facility]06-10-2024 17:34-0400 Respiratory rate18 /minAPRN Andreia Jerry Work Phone: [facility]06-10-2024 17:34-0400 SaO2% (BldA) [Mass fraction]96 %ELECTRONEURODIAGNOSTIC TECHNOLOGIST Andreia Jerry Work Phone: [facility]06-10-2024 17:34-0400 Systolic blood cupsneds967 mm[Hg]ELECTRONEURODIAGNOSTIC TECHNOLOGISTRoxy Edwards Work Phone: [facility]10-25-2022 17:40-0400 Body jzazbm906.48 cmAbdul Toni Other [employer] Other 397739-04-5014 17:40-0400Body mass index (BMI) [Ratio] 36.69 kg/w2Rgpuo Toni Other [employer] Other 10-25-2022 17:40-0400Body dckzrhbcuqj99.4 [degF]Yaneth Toni Other [employer] Other 354631-67-0119 17:40-0400Body mrwogj62.99 kgAbdul Toni Other [employer] Other 10-25-2022 17:40-0400Diastolic blood ooeghsym88 mm[Hg] Yaneth Toni Other [employer] Other 10-25-2022 17:40-0400Respiratory rate18 /minAbdul Toni Other [employer] Other 10-25-2022 17:40-2309PgB1% (BldA) [Mass fraction]99 % Yaneth Toni Other [employer] Other 10-25-2022 17:40-0400Systolic blood zinemsrg820 mm[Hg] Yaneth Toni Other [employer] Other 09-28-2022 09:45-0400Body joddkz714.48 cmEstefania Vo Other [employer] Other 09-28-2022 09:45-0400Body mass index (BMI) [Ratio] 36.76 kg/d6NxyhauEstefania Vo Other [employer] Other 09-28-2022 09:45-0400Body lodglerxrwh69 [degF]Estefania Camarillogary Other [employer] Other 09-28-2022 09:45-0400Body .17 kgEstefania Camarillotoritab Other [employer] Other 09-28-2022 09:45-0400Diastolic blood yxwpfidz99 mm[Hg] Estefania Camarillogary Other [employer] Other 09-28-2022 09:45-1328FtI4% (BldA) [Mass fraction]99 % Estefania Camarillogary Other [employer] Other 09-28-2022 09:45-0400Systolic blood mm[Hg] Estefania Tavo Other [employer] Other 09-15-2022 16:10-0400Diastolic blood mm[Hg] DO Ming Espinoza Work Phone: [facility]09-15-2022 16:10-0400 Heart rate69 /Hong Espinoza Work Phone: [facility]09-15-2022 16:10-0400 Respiratory rate18 /Hong Espinoza Work Phone: [address] [place], [place] 3611709-15-2022 16:10-0400 SaO2% (BldA) [Mass fraction]100 %DO Ming Espinoza Work Phone: [phone] [place], [place] 5627009-15-2022 16:10-0400 Systolic blood rjmhzaje006 mm[Hg]DO Ming Espinoza Work Phone: 4([phone])567-[address] [place], [place] 5627009-15-2022 13:15-0400 Body qsuljb121.48 cmDO Ming Espinoza Work Phone: [phone]09-15-2022 13:15-0400 Body gachezdyqpp79.6 [degF]DO Ming Espinoza Work Phone: [phone]09-15-2022 13:15-0400 Body wmoopl91.5 kgDO Ming Espinoza Work Phone: [phone])[address]09-13-2022 10:45-0400 Diastolic blood glpytbfn24 mm[Hg]DO Ming Espinoza Work Phone: 1(780)637-[address] [place], [place] 5627009-13-2022 10:45-0400 Heart rate66 /Hong Espinoza Work Phone: 9([phone])0-[address] [place], [place] 5627009-13-2022 10:45-0400 Respiratory rate16 /AnupamaO Ming Espinoza Work Phone: 5([phone])232-[address] [place], [place] 5627009-13-2022 10:45-0400 SaO2% (BldA) [Mass fraction]100 %DO Ming Espinoza Work Phone: 5(770)571-[address] [place], [place] 5627009-13-2022 10:45-0400 Systolic blood xaswprqy924 mm[Hg]DO Ming Espinoza Work Phone: 0([phone] [place], [place] 5627009-13-2022 08:08-0400 Body mass index (BMI) [Ratio]37.8 kg/m2DO Ming Espinoza Work Phone: [phone])957-[address] [place], [place] 5627009-13-2022 07:41-0400 Body dnurkv195.48 cmDO Ming Espinoza Work Phone: [facility]09-13-2022 07:41-0400 Body gydrdm41.89 kgDO Ming Espinoza Work Phone: [facility]09-13-2022 06:26-0400 Body mcbkadchyox07.5 [degF]DO Ming Espinoza Work Phone: [facility]08-25-2022 11:00-0400 Body xvyiuw046.48 cmMattchong Parham Other [employer] Other 08-25-2022 11:00-0400Body mass index (BMI) [Ratio] 36.76 kg/k9SqwyyubJesus Parham Other [employer] Other 08-25-2022 11:00-0400Body amqexrjmumd28.6 [degF] Jesus Parham Other [employer] Other 08-25-2022 11:00-0400Body bbuads10.17 kgMattchong Parham Other [employer] Other 08-25-2022 11:00-0400Diastolic blood wpceovug91 mm[Hg] Jesus Parham Other [employer] Other 08-25-2022 11:00-2355KsY5% (BldA) [Mass fraction]98 % Jesus Parham Other [facility] Other 08-25-2022 11:00-0400Systolic blood orsmbygp269 mm[Hg] Jesus Parham Other [employer] Other 07-28-2022 14:40-0400Body usfcis564.48 cmAbdul Toni Other [employer] Other 07-28-2022 14:40-0400Body mass index (BMI) [Ratio] 36.76 kg/k3Dwyeo Toni Other [employer] Other 07-28-2022 14:40-0400Body hfwfiriczqn40.7 [degF]Yaneth Toni Other [employer] Other 07-28-2022 14:40-0400Body tulnsk56.17 kgAbdul Toni Other [employer] Other 07-28-2022 14:40-0400Diastolic blood rihsfupd09 mm[Hg] Yaneth Toni Other [employer] Other 07-28-2022 14:40-0400Respiratory rate18 /minAbdul Toni Other [employer] Other 07-28-2022 14:40-7515KsM0% (BldA) [Mass fraction]98 % Yaneth Toni Other [employer] Other 07-28-2022 14:40-0400Systolic blood donugurv522 mm[Hg] Yaneth Toni Other [employer] Other 07-26-2022 10:10-0400Body cybxnc697.48 Jaqueline Stinson Other [employer] Other 07-26-2022 10:10-0400Body mass index (BMI) [Ratio] 37.86 kg/f3LyrzlcodvDipika Stinson Other [employer] Other 07-26-2022 10:10-0400Body ajciizzycnr61.4 [degF] Dipika Juniorault Other [employer] Other 07-26-2022 10:10-0400Body wtjmki15.9 kgStmikaela Stinson Other [employer] Other 07-26-2022 10:10-0400Diastolic blood hzvhihyr09 mm[Hg] Dipika Juniorault Other [employer] Other 07-26-2022 10:10-0400Respiratory rate16 /minSsindy Juniorault Other [facility] [facility] Other 07-26-2022 10:10-7900TeN4% (BldA) [Mass fraction]100 % Dipika Juniorault Other [facility] [employer] Other 07-26-2022 10:10-0400Systolic blood mm[Hg] Dipika Shantell Other [facility] [employer] Other 06-27-2022 09:13-0400Diastolic blood frgazhrf28 mm[Hg] DO Ming Espinoza Work Phone: [facility]06-27-2022 09:13-0400 Heart rate83 /Hong Espinoza Work Phone: [facility]06-27-2022 09:13-0400 Respiratory rate16 /Hong Espinoza Work Phone: [facility]06-27-2022 09:13-0400 SaO2% (BldA) [Mass fraction]97 %DO Ming Espinoza Work Phone: [facility]06-27-2022 09:13-0400 Systolic blood akqddclg682 mm[Hg]DO Ming Espinoza Work Phone: [facility]06-27-2022 07:23-0400 Body locspi107.48 cmDO Ming Espinoza Work Phone: [address] [place], [place] 3611706-27-2022 07:23-0400 Body mass index (BMI) [Ratio]37.8 kg/m2DO Ming Espinoza Work Phone: [phone] [place], [place] 5627006-27-2022 07:23-0400 Body gviccyhslrz75.8 [degF]DO Ming Espinoza Work Phone: [facility]06-27-2022 07:23-0400 Body mkwgla27.89 kgDO Ming Espinoza Work Phone: [facility]03-03-2022 16:20-0500 Body .48 cmAbdul Toni Other [employer] Other 03-03-2022 16:20-0500Body mass index (BMI) [Ratio] 37.86 kg/z3Gbkgv Toni Other [facility] [employer] Other 03-03-2022 16:20-0500Body chroay81.9 kgAbdul Toni Other [employer] Other 03-03-2022 16:20-0500Diastolic blood sqcwrrek57 mm[Hg] Yaneth Toni Other [employer] Other 03-03-2022 16:20-0500Respiratory rate18 /minAbdul Toni Other [employer] Other 03-03-2022 16:20-8416TwL5% (BldA) [Mass fraction]97 % Yaneth Toni Other [employer] Other 03-03-2022 16:20-0500Systolic blood ddnczqoh890 mm[Hg] Yaneth Toni Other [employer] Other 406754-53-3265 16:35-0400Body Evxoxjfcymq94.3 [degF][facility], QF69-64-5593 16:27-0400Pulse (Heart Rate)110 /[place]Box [place] 16:27-0400Pulse Lzxexztk66 %[facility], EI77-88-3812 16:27-0400Respiratory Rate14 /minSamaritan Hospital, VV89-09-4554 16:16-0400BP Chiaqwpwu89 mm[Hg][facility], EA38-07-8094 16:16-0400BP Ngnenqsa14 mm[Hg][place] 08-02-2019 14:59-0400BMI (Body Mass Index)37.79 kg/g8LhvmqSamaritan Hospital, GX22-33-3832 14:59-0400Body gcgiqp17.72 kgBox [place], [place] 08-02-2019 14:59-3202Aumcqh838.9 cmTyler [place] Encounters Encounter DateEncounter TypeCare ProviderFacilityStart: 07-05-2025 End: 00-27-5014Bcnzgczmk Result EncounterGeneric External Data ProviderNOMS External Department UnsolicitedStart: 07-05-2025 End: 30-35-4659Ukmanjlvi Result EncounterGeneric External Data ProviderNOMS External Department UnsolicitedStart: 06-01-2025 End: 24-26-3248tqoulpjmobRWIYJ [facility]: 05-30-2025 End: 14-13-2950Vatctrcfo Result EncounterGeneric External Data ProviderNOMS External Department UnsolicitedStart: 05-30-2025 End: 98-52-1051Bflcxjtro Result EncounterGeneric External Data ProviderNOMS External Department UnsolicitedStart: 05-27-2025 End: 14-66-1279Bgmqxi outpatient visit 25 minutesGinzeke Fajardo NP Work Phone: noms [facility] Internal MedicineComment on above: Generalized abdominal pain (Primary Dx); Hypokalemia; Immunosuppressed status (HCC); Essential hypertension ; Type 2 diabetes mellitus with diabetic nephropathy, without long-term current use of insulin (HCC); Iron deficiency anemia, unspecified iron deficiency anemia type; Gastroesophageal reflux disease without esophagitis; FibromyalgiaStart: 05-27-2025 End: 41-68-2604dnnjydvzmuUQTMNCG GARMANNot AvailableStart: 05-24-2025 End: 83-94-5570Unmklwttk department patient visitRobsea Wong MD Work Phone: [phone]-Qmjaltgwy Room Work Phone: Start: 05-04-2025 End: 35-26-1677Awhdkctzi Result EncounterGeneric External Data ProviderNOMS External Department UnsolicitedStart: 05-04-2025 End: 07-30-3033Lphhelmgo Result EncounterGeneric External Data ProviderNOMS External Department UnsolicitedStart: 04-11-2025 End: 65-05-6241Tlyxcul encounter statusMing Espinoza DO Work Phone: noms HealthcareStart: 04-11-2025 End: 09-97-4556Jmnhxsca preventive med est patient 40-64yrsMing Espinoza DO Work Phone: noms [facility] IMComment on above:Benign essential hypertension (Primary Dx); ADPKD (autosomal dominant polycystic kidney disease); Type 2 diabetes mellitus with stage 3a chronic kidney disease, without long-term current use of insulin (HCC); Renal transplant recipient (HCC); Mixed anxiety and depressive disorder; Chronic fatigue; Encounter for general health examination; Class 1 obesity due to excess calories with serious comorbidity and body mass index (BMI) of 34.0 to 34.9 in adult; Fibromyalgia; Low vitamin D levelStart: 04-11-2025 End: 38-14-6054jkuxkhxuzrJGBDXZKJason Alves AvailableStart: 04-02-2025 End: 74-49-9268Wafleffzo Result EncounterGeneric External Data ProviderNOMS External Department UnsolicitedStart: 04-02-2025 End: 51-12-7280Yzhapreuw Result EncounterGeneric External Data ProviderNOMS External Department UnsolicitedStart: 03-03-2025 End: 16-94-7089Eraljbwbn Result EncounterGeneric External Data ProviderNOMS External Department UnsolicitedStart: 03-03-2025 End: 54-26-8126Xnstcyuan Result EncounterGeneric External Data ProviderNOMS External Department UnsolicitedStart: 01-29-2025 End: 86-14-8718Gqkodtaox Result EncounterGeneric External Data ProviderNOMS External Department UnsolicitedStart: 01-29-2025 End: 35-82-2788Bhujxnzlq Result EncounterGeneric External Data ProviderNOMS External Department UnsolicitedStart: 01-03-2025 End: 94-77-7772Htxpbr outpatient visit 25 Colten Espinoza DO Work Phone: [facility] IMComment on above:Polycystic kidney disease (Primary Dx); Anemia of renal disease; Immunosuppressive management encounter following kidney transplant ([facility]); Renal transplant recipient ([facility]); Type 2 diabetes mellitus with stage 3a chronic kidney disease, without long-term current use of insulin ([facility]) ([facility]); Dyslipidemia ([facility])Start: 01-03-2025 End: 31-29-8203pwbnipigyiJVXWQJRJason Alves AvailableStart: 12-03-2024 End: 87-85-2767Fmwigmrbj Result EncounterGeneric External Data ProviderNOMS External Department UnsolicitedStart: 12-03-2024 End: 22-88-5426Weflhmgft Result EncounterGeneric External Data ProviderNOMS External Department UnsolicitedStart: 11-12-2024 End: 13-90-5332pzteqnasjzNDUCG SAVZTrinity Health System Twin City Medical Centertart: 11-04-2024 End: 01-89-5685Dixjvjeyq Result EncounterGeneric External Data ProviderNOMS External Department UnsolicitedStart: 11-04-2024 End: 80-09-2979Pdhfscgku Result EncounterGeneric External Data ProviderNOMS External Department UnsolicitedStart: 10-14-2024 End: 76-57-5119Oyufcnkij Result EncounterGeneric External Data ProviderNOMS External Department UnsolicitedStart: 10-14-2024 End: 94-14-0520Ehqnedykb Result EncounterGeneric External Data ProviderNOMS External Department UnsolicitedStart: 10-14-2024 End: 31-42-8546icuiyoxltjAqsbdek Garman DO Work Phone: [facility] Work Phone: Start: 10-14-2024 End: 62-17-6077Bxsmsfhh Aravind Espinoza DO Work Phone: [facility]-LAB Path Spec Lala HospStart: 10-02-2024 End: 82-74-4938Viyluxhed Result EncounterGeneric External Data ProviderNOMS External Department UnsolicitedStart: 10-02-2024 End: 50-46-0843Uwjzwbvga Result EncounterGeneric External Data ProviderNOMS External Department UnsolicitedStart: 10-01-2024 End: 36-90-3228Gtjwno outpatient visit 40 Colten Espinoza DO Work Phone: [facility] IMComment on above:Benign essential hypertension (CMS/HCC) (Primary Dx); Renal transplant recipient (CMS/HCC); Immunosuppressive management encounter following kidney transplant (CMS/HCC); Anemia of renal disease; Iron deficiency anemia, unspecified iron deficiency anemia type; Type 2 diabetes mellitus with stage 3a chronic kidney disease, without long-term current use of insulin (HCC) (CMS/HCC); Dyslipidemia (CMS/HCC); Fibromyalgia; Need for immunization against influenzaStart: 10-01-2024 End: 55-44-4658ijtlrbczonCBACAAE A GARMANNot AvailableStart: 09-14-2024 End: 34-53-7057Iwxgec outpatient visit 10 minutesBlake Hinojosa DO Work Phone: noms SWS OBComment on above:Cyst of left ovaryStart: 09-14-2024 End: 87-69-3072rwsboliyxxRJHBGPB D BRUNERNot AvailableStart: 08-31-2024 End: 81-24-5257Avkfqlwfx Result EncounterGeneric External Data ProviderNOMS External Department UnsolicitedStart: 08-31-2024 End: 02-96-7567Cjipozmnv Result EncounterGeneric External Data ProviderNOMS External Department UnsolicitedStart: 08-25-2024 End: 38-57-9383Yfkssjl encounter Js Espinoza DO Work Phone: [facility] Work Phone: Start: 08-25-2024 End: 19-64-8817kzkdtpeltrPdjcuca Garman DO Work Phone: [facility] Work Phone: Start: 08-02-2024 End: 05-07-2542Thocdnrc Result EncounterBlake Hinojosa DO Work Phone: noms External Department UnsolicitedStart: 08-02-2024 End: 90-80-3279Utlgzfjj Result EncounterBlake Hinojosa DO Work Phone: noms External Department UnsolicitedStart: 08-02-2024 End: 09-48-3513Ubjgko outpatient visit 10 minutesBlake Hinojosa DO Work Phone: noms SWS OBComment on above:Cyst of left ovary (Primary Dx); Dyspareunia in femaleStart: 08-02-2024 End: 74-18-9373jemwnzqoupEEUMZJT D BRUNERNot AvailableStart: 08-02-2024 End: 87-68-0492Yigffux encounter procedureDO Ming Espinoza Work Phone: [facility] Work Phone: Start: 08-02-2024 End: 31-71-0987nqxvuuoqowOGJud Espinoza Work Phone: [facility] Work Phone: Start: 07-31-2024 End: 80-03-6075Zoswnxcid Result EncounterGeneric External Data ProviderNOMS External Department UnsolicitedStart: 07-31-2024 End: 40-95-3955Qkjtzkicv Result EncounterGeneric External Data ProviderNOMS External Department UnsolicitedStart: 07-27-2024 End: 36-34-2510Uhboff outpatient visit 15 minutesLucero Hudson NP Work Phone: [facility]OM[facility] IMComment on above:Acute non-recurrent pansinusitis (Primary Dx); Side effect of medicationStart: 07-27-2024 End: 20-13-7016heetpmegnuQJKGYNP A GARMANNot AvailableStart: 06-29-2024 End: 45-11-5859Zyriviuxo Result EncounterGeneric External Data ProviderNOMS External Department UnsolicitedStart: 06-29-2024 End: 36-11-2599Avpglnmaq Result EncounterGeneric External Data ProviderNOMS External Department UnsolicitedStart: 06-10-2024 End: 69-83-3466Pocqltfrj Result EncounterGeneric External Data ProviderNOMS External Department UnsolicitedStart: 06-10-2024 End: 57-15-1435Ytgnnwvfq Result EncounterGeneric External Data ProviderNOMS External Department UnsolicitedStart: 06-02-2024 End: 18-78-7878Vhzdsnlnw Result EncounterGeneric External Data ProviderNOMS External Department UnsolicitedStart: 06-02-2024 End: 90-42-5990Cpofzjpfe Result EncounterGeneric External Data ProviderNOMS External Department UnsolicitedStart: 03-15-2024 End: 49-42-7004mmkgvjxjrcGXNP Amanda Grob Work Phone: [facility] Work Phone: Start: 03-15-2024 End: 78-09-9344Wkwcfkuh ReferredAPRRoxy Edwards Work Phone: [facility]-Lab Main [place] Work Phone: Start: 03-15-2024 End: 74-29-0436Zuhvvna encounter procedureAPRRoxy Edwards Work Phone: [facility] Justin Work Phone: Start: 11-06-2023 End: 82-60-5056amvekdkuwnMC Ming Espinoza Work Phone: [facility] Work Phone: Start: 11-06-2023 End: 71-97-3685Recbgbr encounter procedureDO Ming Espinoza Work Phone: [facility]-Lab [address] Work Phone: Start: 07-30-2022 End: 04-87-0982sncszptnpfWtnid Toni Other [employer] Other Start: 23-50-9887Fuizcg outpatient visit 25 minutes Yaneth QadirFPG NephrologyStart: 07-29-2022 End: 86-49-2853wvmyjsqommTMWXJ QADIRFacility:C9Zyefj: 07-16-2022 End: 50-40-6270rarwvlxitsFC Ming Espinoza Work Phone: [facility] Work Phone: Start: 07-16-2022 End: 90-12-6880Dyjaexh encounter procedureDO Ming Espinoza Work Phone: [facility] Start: 07-03-2022 End: 08-21-2022kuoinwddlpThmkna Ruttino Other [employer] Other Start: 60-63-1635Oxzbwd-up encounterJamary Glynn Vascular SurgeryStart: 06-20-2022 End: 81-97-3393qdhykodvsvBkvgzrk Langenberg Other [employer] Other Start: 72-25-9114Selmosttu encounterMattchong Parham FPG Vascular SurgeryStart: 06-20-2022 End: 89-18-6222Hzccjrccm department patient visitDO Ming Espinoza Work Phone: [facility]-Emergency RoomStart: 06-18-2022 End: 87-04-7081Valcdxatk to same day surgery centerDO Ming Espinoza Work Phone: [facility]Start: 06-14-2022 End: 12-98-6347Agonrxy encounter procedureDO Ming Espinoza Work Phone: [facility]-Pre-Surgical Testing Start: 06-06-2022 End: 87-56-0975tjmbrthlfgAR BRINDA BRUNNELIAFacility:N7Alyet: 06-05-2022 End: 61-58-2792Nulqjbs encounter procedureDO Ming Espinoza Work Phone: [facility]-Pre-Surgical Testing Start: 06-03-2022 End: 73-33-0503tkkpidsmbtQskxxwa Langenberg Other [employer] Other Start: 87-30-9521Apsmschdt for other preprocedural examinationMatthew LangjaclynFPG Vascular SurgeryStart: 86-67-0385Utwhbrqnw encounterMatthew DioneFPG Vascular SurgeryStart: 05-30-2022 End: 21-32-9141jkbpksamokRutjmvm Langenberg Other [employer] Other Start: 41-27-8500SOKR visit new patientMatthew LangjaclynFPG Vascular SurgeryStart: 05-30-2022 End: 07-33-1473Qkbhypz encounter procedureDO Ming Espinoza Work Phone: [facility]-Ultrasound [facility] VascularStart: 33-88-5067fpvhensjkwJA BLAKE Pérezcility:H1Canrk: 05-02-2022 End: 86-38-8766yyidpiwjwrYmbdd Toni Other [employer] Other Start: 18-30-7233Xyuknp outpatient visit 25 minutes Yaneth QadirFPG NephrologyStart: 04-30-2022 End: 74-92-0581ioixojjzinYnplzotcw Breault Other [employer] Other Start: 95-12-0704Giypid outpatient visit 15 minutes Dipika Arce [facility] ClydeStart: 24-37-8455Vtanxidtv for preprocedural laboratory examinationABDUL QADIRThe Wallsburg HospitalStart: 44-36-4528Fllpuorak for other preprocedural examinationDR DOCTOR MISCThe [facility]sburg HospitalStart: 04-27-2022 End: 49-86-8976Utbrrpfeo for other preprocedural examinationDR MING ESPINOZA Facility:Z4Wgxhi: 04-27-2022 End: 46-81-2356uruwvnnutwHV MING ESPINOZAFacility:L1Fouuh: 04-27-2022 End: 22-57-8599Xmphjdavx for preprocedural laboratory examinationABDUL TONI Facility:O4Miuqy: 72-85-3932Ebytmwnmg for other specified special examinationsDR DOCTOR MISCTKettering Health Greene Memorial HospitalStart: 04-01-2022 End: 68-24-0073Rzegibwhp to same day surgery centerDO Ming Espinoza Work Phone: [facility]-Digestive HealthStart: 03-29-2022 End: 39-34-2122sikvtqddbdDI DOCTOR MISCFacility:O0Wblfo: 03-29-2022 End: 28-76-2642Nftmsypqs for other specified special examinationsDR DOCTOR MISC Facility:N1Xedmk: 03-28-2022 End: 19-09-5396Fhctjaj encounter procedureDO Ming Espinoza Work Phone: [facility] Fxf-Sas-Eguhrnob Testing Start: 02-26-2022 End: 71-85-0590ftnospkctnPmwiodt Didominicy Other [employer] Other Start: 55-19-3679Xmjsmvoyx encounterCameron DidominicyFPG Referral CoordinatorStart: 12-06-2021 End: 77-13-6511kaigkptdlzNrtoj Toni Other [facility] [employer] Other Start: 72-92-4397Bvybgf outpatient visit 25 minutes Yaneth QadirFPG Nephrology ClydeStart: 12-03-2021 End: 99-00-6924zqojdvmnjdFCPYR QADIRFacility:E0Shxir: 09-01-2021 End: 60-37-4157atdumpquqoOY MING ESPINOZAFacility:H2Bjwsm: 08-02-2019 End: 89-50-7571Jrssmslkh department patient visitTYLER Flower Hospitaltart: 08-02-2019 End: 36-85-6317Vefeltaph department patient visitTyler [facility] Work Phone: [facility] EDComment on above:Acute sepsis (HCC) (Primary Dx); Acute cystitis without hematuria; Chronic renal failure, stage 4 (severe) (HCC); Polycystic kidney disease Procedures DateProcedureProcedure DetailPerforming ClinicianStart: 63-64-5006NRW CBC WITH AUTO DIFFGeneric External Data ProviderStart: 84-24-4771JKE CBC WITH AUTO DIFF Generic External Data ProviderStart: 01-89-3838RTR MAGNESIUMGeneric External Data ProviderStart: 88-92-8839OUJ PHOSPHOROUSGeneric External Data Provider Start: 70-69-8327VKB URIC ACIDGeneric External Data ProviderStart: 58-11-9113EQC CMP (CMP) (FOR REMOTE [facility] USE)Generic External Data ProviderStart: 05-30-2025 METRO BILIRUBIN, DIRECTGeneric External Data ProviderStart: 97-33-1425ARJ CBC WITH AUTO DIFFGeneric External Data ProviderStart: 20-64-7227YPH MAGNESIUM Generic External Data ProviderStart: 86-92-1377HTB PHOSPHOROUSGeneric External Data ProviderStart: 13-83-5855ZSH URIC ACIDGeneric External Data ProviderStart: 77-61-5426OIN CMP (CMP) (FOR REMOTE [facility] USE)Generic External Data ProviderStart: 96-82-2346ZUMLP BILIRUBIN, DIRECTGeneric External Data ProviderStart: 71-17-8200RNQ CBC WITH AUTO DIFFGeneric External Data ProviderStart: 01-29-2025 ALL CBC WITH AUTO DIFFGeneric External Data ProviderStart: 20-30-6129VPF CBC WITH AUTO DIFFGeneric External Data ProviderStart: 03-56-0342Bvpbzakx identified in Urine by CultureGeneric External Data ProviderStart: 64-23-2053MQR URINALYSISGeneric External Data ProviderStart: 56-12-7294SJO MAGNESIUMGeneric External Data ProviderStart: 50-17-8609EOP PHOSPHOROUSGeneric External Data ProviderStart: 60-26-2463KVG URIC ACIDGeneric External Data ProviderStart: 81-87-8644KKR CMP (CMP) (FOR REMOTE [facility] USE)Generic External Data ProviderStart: 40-51-6053MJYJV BILIRUBIN, DIRECTGeneric External Data ProviderStart: 82-05-4748ECE CBC WITH AUTO DIFFGeneric External Data ProviderStart: 08-31-2024 ALL LIPID PROFILE (FASTING)Generic External Data ProviderStart: 67-10-9795WTY MAGNESIUMGeneric External Data ProviderStart: 69-44-9989SQO PHOSPHOROUSGeneric External Data ProviderStart: 40-54-0306QAZ URIC ACIDGeneric External Data ProviderStart: 49-02-4204VYM CMP (CMP) (FOR REMOTE [facility] USE)Generic External Data ProviderStart: 84-72-2426LYTBJ BILIRUBIN, DIRECTGeneric External Data Provider Start: 96-49-7362AQF HEMOGLOBIN X0ANyjysao External Data ProviderStart: 08-25-2024 End: 74-32-1627Hlebzdbdl mammography of bilateral breastsJefacundo Espinoza DO Work Phone: Start: 33-61-3505Yoszuxnxgrxtrjpq antigen ceaBlake Hinojosa DO Work Phone: comment on above:Serial tumor marker results determined by assays using different manufacturers or methods may not be comparable. [facility] cost accounting analyst and method: RUSSELL disco volanteEL DXI, 2 SITE IMMUNOENZYMATIC SANDWICH ASSAY. Start: 54-09-1577Veooj chest X-rayDO Ming Espinoza Work Phone: Start: 05-62-3829Xlyunchxfeycfbab antigen ceaWijuan Hinojosa DO Work Phone: comyzec on above:Result Comment: Serial tumor marker results determined by assays using different manufacturers or methods may not be comparable. [facility] cost accounting analyst and method: BridgEL DXI, 2 SITE IMMUNOENZYMATIC ?SANDWICH? ASSAY. PERFORMED BY: [place] [address] PATHOLOGIST SANDWICH MACHINE OPERATOR ANAHY MCKEE M.D.Performed By: #### CEA #### [place] [address] [place] #### CA125 #### [facility] ,Start: 80-80-2730Wkuzfxekebt tumor antigen quantitative ca 125Wijuan Hinojosa DO Work Phone: start: 07-86-3442TBG CBC WITH AUTO DIFFGeneric External Data ProviderStart: 92-53-9416OCK CBC WITH AUTO DIFFGeneric External Data ProviderStart: 81-51-6637Exvelnkr identified in Urine by CultureGeneric External Data ProviderStart: 21-47-3869TWM CBC WITH AUTO DIFFGeneric External Data ProviderStart: 36-12-8191Opoboiv of renal transplantRenal transplant recipientGeneric ProviderStart: 07-16-2022 End: 68-60-3231Vyctjaegh mammography of bilateral breastsDO Ming Espinoza Work Phone: Start: 94-26-4661Nrpbgkjnwykyw fistulizationDO Ming Espinoza Work Phone: Start: 09-25-6877Dkcvgjonbi ([place]) doppler flow mapping of vein of upper limbDO Ming Espinoza Work Phone: Start: 38-24-7078Nqpmongum colonoscopyDO Ming Espinoza Work Phone: Start: 61-61-1310JhawftrqpkqXpetobq ProviderStart: 14-86-1460Uapms of lactateTYLER WEESEStart: 20-48-0794Buoii of troponin quantitativeTYLER WEESEStart: 14-77-9994Nhken of lactateTyler Kaitlin Work Phone: Start: 32-20-8837Kvqfj of troponin quantitativeTyler Kaitlin Work Phone: Start: 63-20-9215Dskgckn bacterial quanttative colony count urineTYLER WEESEStart: 57-33-5339Naepzaiajq exam chest single viewTYLER WEESEStart: 11-52-3661Rc thorax w/contrast materialTYLER WEESEStart: 08-02-2019 Assay of lipaseTYLER WEESEStart: 18-63-5056Mtqlj of troponin quantitativeTYLER WEESEStart: 22-90-0457Wbpvm count complete auto&auto difrntl wbcTYLER KAITLIN Start: 01-71-4444TNCSV NATRIURETIC PEPTIDETYLER WEESEStart: 31-11-3760Monntd dgradj products d-dimer quantitativeTYLER WEESEStart: 05-57-0587Oewocxxipzp time VIDAL WEESEStart: 41-29-6693Gpdje of lactateTYLER WEESEStart: 68-38-5408Oyydcke bacterial blood aerobic w/id isolatesTYLER WEESEStart: 64-36-1413GGOFAKOW OXYGEN THERAPY PROTOCOLTYLER WEESEStart: 74-75-0694Acl routine ecg w/least 12 lds w/i&rTYLER WEESEStart: 11-19-0971Dedsgfhlcl microscopic onlyTyler Kaitlin Work Phone: Start: 52-12-8232Ecywi dip stick/tablet rgnt auto w/o microscopyTyler Kaitlin Work Phone: Start: 30-98-4212Xcxbfbgkex exam chest single view Vidal Madrigal Work Phone: Start: 55-11-3623Hn angiography chest w/contrast/noncontrastTyler Kaitlin Work Phone: Start: 60-67-1585Kilmg of lipaseTyler MySQUAR Work Phone: Start: 79-10-7572Esivk of troponin quantitativeTyler [employer] Work Phone: Start: 56-65-8812Bsken count complete auto&auto difrntl wbcTyler [employer] Work Phone: Start: 66-98-6163Xrmeqy dgradj products d-dimer quantitativeTyler [employer] Work Phone: Start: 13-51-5818WAYTLZY, SEPSISTyler [employer] Work Phone: Start: 68-81-8043Wsyqdrqttge peptideTyler [employer] Work Phone: Start: 03-04-5986Qmvktglszcp timeTyler [employer] Work Phone: Start: 93-57-5892LTBGKTAD OXYGEN THERAPY PROTOCOLTyler MyS[employer]AR Work Phone: Start: 23-87-2624Wed routine ecg w/least 12 lds w/i&r Vidal Madrigal Work Phone: History of renal transplantRenal transplant recipient ([facility])Ming Espinoza DO Work Phone: History of renal transplantRenal transplant recipient ([facility])Ming Espinoza DO Work Phone: History of renal transplantRenal transplant recipient ([facility])Ming Espinoza DO Work Phone: SARS Antigen (LFIA)DO Ming Espinoza Work Phone: Plan of Treatment DateCare ActivityDetailAuthorStart: 76-56-8087Jrvrsimzb for malignant neoplasm of colonNOMS HealthcareStart: 10-17-2025 End: 82-36-9054Hzlbytt encounter jiehyltui36/12/2026 8:30 AM EST Office Visit [facility] [address] [place], [place] [address] [phone] [place] Internal MedicineStart: 54-09-7867Gcjlxaamd for malignant neoplasm of breastMammogramLDS HOSPITAL HealthcareStart: 60-18-3895Pbtjdvaif vaccinationInfluenza Vaccine (#1)NOM HealthcareStart: 40-20-6922Nxnlclhmrx A1c measurementDiabetes: Hemoglobin P2BKBRR HealthcareStart: 80-92-6694Qqvnlze function panelUniversity Hospitals Geneva Medical Centertart: 48-04-2226ZqfoeikkuUniversity Hospitals Geneva Medical Centertart: 40-50-0242Osnes screening for proteinDiabetes: Urine Protein ScreeningLDS HOSPITAL HealthcareStart: 04-11-2025 End: 86-16-0029Npgjwrm encounter ufkswjewf46/07/2025 8:00 AM EDT Office Visit [facility] IM [address] [place] [address] Ming Espinoza, DO [address] [place] [address] [facility] IMStart: 04-06-2025 End: 60-59-5085Zroeaxe encounter uisxlarhn57/02/2025 8:15 AM EDT Office Visit [facility] IM [address] [place] [address] Ming Espinoza, DO [address] [place] [address] [facility] IMStart: 04-01-2025 End: 46-48-2402Yyxttxt encounter qqocueyip13/27/2025 8:15 AM EDT Office Visit [facility] IM [address] [place] [address] Ming Espinoza, DO [address] [place] [address] [facility] IMStart: 32-02-0781Wwfetojg identified in Urine by CultureUrine [facility] Hospitaltart: 58-94-2494Dfmlb [facility] Centertart: 10-01-2024 End: 98-21-9113Kjodily encounter rrwhvztim45/27/2024 8:15 AM EST Office Visit [facility] IM [address] [place] [address] Ming Espinoza, DO [address] [place] [address] [facility] IMStart: 09-14-2024 End: 81-64-8620Wnazmwl encounter lfetwqehj79/10/2024 8:45 AM EST Office Visit [facility] OB [address] [place] [address] Blake Hinojosa, DO [address] [place] [address] [facility] OBStart: 59-76-4277Txtvk screening for protein Diabetes: Urine Protein ScreeningNONY HealthcareStart: 08-02-2024 End: 71-84-7412Uiakaan encounter fkgyrzivb27/28/2024 11:00 AM EDT Office Visit [facility] OB [address] [place] [address] Blake Hinojosa, DO [address] [place] [address] [facility] OBStart: 08-02-2024 End: 10-22-3059Scyzycnqrgkd / ancillary services anyooxdvta94/28/2024 10:15 AM EDT Ancillary Procedure [facility] OB [address] [place] [address] PRCM SWS OBStart: 97-11-2523MzmczxxidOhiohealth Southeastern Medical Center Start: 83-45-8850Rdajnnmshl A1c measurementDiabetes: Hemoglobin F3XXSTS HealthcareStart: 82-32-9172Uvqivedos vaccinationInfluenza Vaccine (#1)[facility] HealthcareStart: 64-24-4319Rcqspyqr identified in Urine by CultureUniversity Hospitals Geneva Medical Centertart: 38-88-4857Stcyoshk identified in Urine by Culture [facility] Centertart: 85-74-2932FxspgynjqUniversity Hospitals Geneva Medical Centertart: 62-76-9118Acayz screening for proteinDiabetes: Urine Protein ScreeningLDS HOSPITAL HealthcareStart: 22-03-8290Slcfcxffk for malignant neoplasm of breastMammogramLDS HOSPITAL HealthcareStart: 54-46-6624EdjyviiihOhiohealth Southeastern Medical Center Start: 69-82-9616ArucjfkdiUniversity Hospitals Geneva Medical Centertart: 66-47-9556HyalytjwyU[facility] Work Phone: Start: 28-41-8781Zwsiiikqn vaccinationFlu vaccine (#1) [facility]: 79-58-0398Eqthz screenLipid screenSt. [facility] of [facility] Hospital: 73-53-9021Jipiwhel cancer screenCervical cancer screenSt. [facility] of God Hospital: 35-83-6921WRmC/Tdap/Td vaccine (1 - Tdap)DTaP/Tdap/Td vaccine (1 - Tdap)[facility]: 76-21-7611LUZ screenHIV screenSt. [facility] of [facility]: 52-86-0030Awfjogce screeningDiabetes: Retinopathy ScreeningLDS HOSPITAL HealthcareStart: 27-55-7250Tvyugwlpco monitoringCreatinine monitoringSt. [facility] of [facility]: 08-10-3834Thbvxapja monitoringPotassium monitoringSt. [facility]: 17-66-5917Yrpwtcttv for malignant neoplasm of colonLDS HOSPITAL Teettstcbf85 hour urine measurementOhiohealth Southeastern Medical CenterAlbumin [Mass/volume] in Serum or PlasmaOhiohealth Southeastern Medical Center Albumin/Globulin ratioOhiohealth Southeastern Medical CenterAlbumin/Globulin ratio [facility] CenterAldolase measurementOhiohealth Southeastern Medical CenterAnion gap measurementOhiohealth Southeastern Medical Center End: 61-71-1935Mdpqchqe identified Cx Nom (U)Urine Culture Microbiology STAT One Time for 1 Occurrences starting 08/02/2019 until 08/02/2019[facility] [place], [place] Comment on above:One Time for 1 Occurrences starting 08/02/2019 until 08/02/2019 Bacteria identified Cx Nom (U)Urine Culture Microbiology STAT 08/02/2019 1:00 PM [facility] CenterTORSTENBacteria identified in Urine by CultureURINE CULTURE, ROUTINE Lab Routine 06/10/2024 1:35 PM EDTLDS HOSPITAL HealthcareBacteria identified in Urine by CultureURINE CULTURE, ROUTINE Lab Routine 11/04/2024 8:55 PM ESTNOMS HealthcareBasophils [#/volume] in Blood by Automated [facility] CenterBasophils/100 leukocytes in Blood by Automated [facility] CenterBilirubin.indirect [Mass/volume] in Serum or Plasma [facility] Medical CenterCA 125CA 125 Lab Routine Cyst of left ovary Ordered: 08/02/2024[facility] CenterComment on above:Ordered: 4Cancer Ag 125 [Units/volume] in Serum or PlasmaOhiohealth Southeastern Medical Center Carcinoembryonic Ag [Mass/volume] in Serum or PlasmaCEA Lab Routine Cyst of left ovary Ordered: 08/02/2024[facility] Work Phone: comment on above:Ordered: 08/02/2024 End: 42-31-5867Zqkkijg blood #1Culture blood #1 Microbiology STAT One Time for 1 Occurrences starting 08/02/2019 until 08/02/2019[facility] HospitalTORSTENComment on above:One Time for 1 Occurrences starting 08/02/2019 until 08/02/2019 End: 78-42-9978Mdlkcwo blood #2Culture blood #2 Microbiology STAT One Time for 1 Occurrences starting 08/02/2019 until 08/02/2019[facility], TORSTENComment on above:One Time for 1 Occurrences starting 08/02/2019 until 08/02/2019EKG 12 Lead EKG 12 Lead ECG STAT 08/02/2019 12:25 PM [facility] CenterTORSTENElectrophoresis: kejle-5-yxvaiadoYsotqzhqtOhiohealth Southeastern Medical CenterElectrophoresis: svilu-4-fvzizoojActtjamxoOhiohealth Southeastern Medical CenterElectrophoresis: beta-globulin [facility] CenterElectrophoresis: gamma globulinOhiohealth Southeastern Medical CenterEosinophils/100 leukocytes in Blood by Automated count [facility] Medical CenterErythrocyte distribution width [Ratio] by Automated [facility] CenterErythrocytes [#/volume] in Blood [facility] Medical CenterGlobulin [Mass/volume] in SerumOhiohealth Southeastern Medical CenterGlobulin [Mass/volume] in SerumOhiohealth Southeastern Medical CenterGlomerular filtration rate [Volume Rate/Area] in Serum, Plasma or Blood by CreatinineOhiohealth Southeastern Medical CenterHematocrit [Volume Fraction] of [facility] HospitalHemoglobin [Mass/volume] in BloodOhiohealth Southeastern Medical CenterHomogenous nuclear Ab pattern [Titer] in SerumOhiohealth Southeastern Medical CenterIgA [Mass/volume] in Serum or PlasmaOhiohealth Southeastern Medical CenterIgG [Mass/volume] in Serum or PlasmaOhiohealth Southeastern Medical CenterIgM [Mass/volume] in Serum or PlasmaOhiohealth Southeastern Medical Center Immunofixation for UrineOhiohealth Southeastern Medical CenterInitiate Oxygen Therapy ProtocolInitiate Oxygen Therapy Protocol Respiratory Care Routine Daily until discontinued starting 08/02/2019, 2 completedPro[facility], AskNshareMercy Hospital Springfieldment on above:Daily until discontinued starting 08/02/2019, 2 completed End: [id number], SepsisLactate, Sepsis Lab Timed Now Then Every 2hr for 2 Occurrences starting 08/02/2019 until 08/02/2019, 1 completedAv[facility] PhotorankRES[facility]ARCH [facility], AskNshareScotland [facility] on above:Now Then Every 2hr for 2 Occurrences starting 08/02/2019 until 08/02/2019, 1 completedLeukocytes [#/volume] corrected for nucleated erythrocytes in Blood by Automated counOhiohealth Southeastern Medical Center Leukocytes [#/volume] in BloodOhiohealth Southeastern Medical CenterLymphocytes [#/volume] in Blood by Automated countOhiohealth Southeastern Medical Center Lymphocytes/100 leukocytes in Blood by Automated [facility] CenterMCH [Entitic mass] by Automated countOhiohealth Southeastern Medical Center MCHC [Mass/volume] by Automated countOhiohealth Southeastern Medical CenterMCV [Entitic volume] by Automated [facility] CenterMeasurement of monoclonal protein concentrationOhiohealth Southeastern Medical CenterMonocytes [#/volume] in Blood by Automated [facility] Monocytes/100 leukocytes in Blood by Automated countOhiohealth Southeastern Medical CenterNeutrophils [#/volume] in Blood by Automated countOhiohealth Southeastern Medical CenterNeutrophils/100 leukocytes in Blood by Automated [facility] CenterNuclear Ab [Titer] in SerumOhiohealth Southeastern Medical CenterNucleated erythrocytes [Presence] in Blood by Automated [facility] CenterPatient EducationMercy Health Anderson Hospital Ctr Work Phone: Patient referralMercy Health Anderson Hospital Ctr Work Phone: Platelet mean volume [Entitic volume] in Blood by Automated [facility] Medical CenterPlatelets [#/volume] in Blood [facility] Southeastern Medical CenterPotassium [Moles/volume] in Serum or Plasma [facility] Work Phone: Protein [Mass/volume] in Serum or PlasmaOhiohealth Southeastern Medical CenterProtein [Mass/volume] in UrineUniversity Hospitals Geneva Medical Centererum immunofixationOhiohealth Southeastern Medical Center Immunizations Immunization DateImmunizationNotesCare UnnogejyDmisaiai01-15-1402Wgdryyqlz, Madin [place] Canine Kidney, subunit, trivalent, injectable, contains preservative Ming Espinoza DO Work Phone: [facility] CenterLvbjlmsipg43-84-6395cyqsnjxpp virus vaccine, unspecified formulationMing Espinoza DO Work Phone: [facility] Health CenterBsivyjczoc13-61-1341Ekyupwrtl, injectable, Madin Sarah Canine Kidney, preservative free, quadrivalentGeneric Saint Cabrini HospitalAgasmcrvje58-29-3918sjaplydcl virus vaccine, unspecified formulationUniversity Hospitals Conneaut Medical Centerric Saint Cabrini HospitalThniotpdyn48-91-8969WIRGT-54 Ad26.COV2.S (Ainsley)DO Ming Espinoza Work Phone: [facility]08-24-2020influenza, high dose seasonal, preservative-freeGeneric [facility]11-06-2019 influenza, injectable, madin sarah canine kidney, preservative freeGeneric Saint [facility]rini HospitalZyopzncswv10-91-3035ktizmxglmzwk polysaccharide vaccine, 23 valent Generic [facility] HospitalJwnmdcxkhg96-28-0792ehvionjn influenza, intradermal, preservative freeGeneric [facility] Payers DatePayer CategoryPayerPolicy [id number] InsuranceWVUMEDICINE BARNESVILLE HOSPITALCAL MUTUAL [id number] MUTUAL MEDICAL [place] [id number] 2023-Present [address] [place] [address] [id number] [place] MEDICAL [place] [address] xxxxxxxxx 2015-Present [phone] [address] [place] [address]ksiqcrawm [id number]. [id number] 2..1.150400.3.57[id number] 2..1.682317.3.57[id number] 2..1.572837.3.57[id number] 2..1.989212.3.57[id number] 2..1.276946.3.579.[id number] 2.16.840.1.280518.3.57[id number] 2.16.840.1.536439.3.57[id number] 2.16.840.1.589454.3.57[id number] 2..840.1.022037.3.57[id number] 2..840.1.220985.3.57[id number] 2.0.1.305345.3.57[id number] 2.0.1.297710.3.57[id number] 2.0.1.675685.3.579.2.[id number] 2.0.1.518147.3.57[id number] 2.0.1.126322.3.57[id number] 2.0.1.077553.3.57[id number] 2.0.1.680406.3.57[id number] 2.0.1.537659.3.579.2.965838-85-3897Cwtl-krb 2f0761j7-14v4-1610-903s-0mx83667cb0386-50-0244Wglpyby78988083486-07-8381Yjbjujt [id number] 2.84[id number] 2..0.1.539626.19Unknown [id number] 2..840.1.9[id number] 2..840.1.2[id number] 2.840.1.949435.3.579.2.531 [id number] 2.0.1.389439.3.579.2.531 Social History DateTypeDetailFacilityTobacco smoking status NHISUnknown if ever smokedRegency Hospital CompanyRentelligence, KYSex Assigned At BirthNot on fileRegency Hospital CompanyRentelligence, [place]Start: 04-19-2024 End: 59-85-1264Ipx Assigned At [facility] [employer] Other Start: 06-05-2022 End: 42-36-9627Lbhxbpn smoking status NHISNever smoked tobacco (finding) [facility] Medical Centertart: 67-08-2464Tte Assigned At [facility]. Charles Hospitaltart: 53-78-8792Ytoeopd use and exposure Smokeless tobacco non-userNOMS HealthcareStart: 07-27-2024 End: 84-90-0772Emrppqnvd beverage intakeLifetime non-drinker (finding)NOMS HealthcareStart: 04-19-2024 End: 54-11-0761Assonhc of Social functionNOMS HealthcareHow often to you have a drink containing alcohol?NeverNOMS HealthcareHow many standard drinks containing alcohol do you have on a typical day?Patient does not drinkNOMS Healthcare Start: 21-80-6812Oyudprz CommentCaffeine: occasional teaNOMS HealthcareStart: 19-64-8770Vytkks identityIdentifies as female gender (finding)[facility] Start: 47-86-7999Ycfmeq orientationHeterosexual (finding)NOMS HealthcareStart: 08-26-2024 End: 77-31-0121AixOxhzte (finding)[facility] Southeastern Medical CenterNEGATED: Highlighted [facility] Medical Equipment Procedure CodeEquipment CodeEquipment Original TextEquipment IdentifierDatesUse as [id number]: 06-10-2023 End: 06-09-2024 Goals DatePatient GoalDesired Activity/State Functional Status BqqpSgfadlmwokCimcsuAxulqodh47-63-1650Hvzxspt Health Questionnaire 2 item (PHQ- 2) [Reported][facility] Clinical Notes 05-17-2020 to 07-27-2025 Note Date & ZwgcEwjeAtewgauf69-02-1028 NoteOn 07/27/2025 pt called because she did not come to scheduled appt with Dr. Parrish to discuss curyung nephrectomy. Pt states work situation currently difficult but has an opportunity in January 2026 to get help with recuperation bc will be off work for [address] Parrish appt now 11/30/2025.[facility]08-28-2025 NoteTC called pt to inform her that Dr. Parrish is agreeable to having her seen in clinic visit to discuss curyung nephrectomy. Communication between Leo, AUTO MECHANICS INSTRUCTOR and Dr. Parrish confirmed CT previously done in 07/02/2024 is acceptable imaging and no need for newer test. TC called pt who reports that she would prefer appt in July because has surgery planned soon so she will need to be available for him and wants his concern resolved before starting process on curyung nephrectomy. TC and pt agreed on July 27. TC sent email to clinic staff to schedule pt in [facility] 06-01-2025 NoteTransplant Clinic Patient : Mandeep Puri; 49 y.o. [...] recently was seen at the ER in [facility], started on a course of Cipro, [...] by PCP: macrobid. Followup Urine Cx on 7/19/24: No significant growth. Pt sees her local [...] (184 lb) 11/12/24 82.6 kg (182 lb) 07/07/24 78.5 kg (173 lb) Physical Exam Physical Exam: Constitutional: Mandeep Khushi [...] 51.7 04/27/2024 CREATUR 142.0 04/27/2024 COLORU Yellow 11/12/19 (more content not included)...[facility]08-22-2025 History of Present illness Narrative* Calista Fajardo NP - 05/27/2025 2:30 PM EDT Images from the original note were not [...] back to 60 mg. - Side Effects: Marietta almost comatose on 90 mg dose, felt totally spastic when off Cymbalta 14 yearsago, muscle relaxer caused nightmares. Heartburn She experiences frequent heartburn, which she attributes to her kidney condition. She takes Pepcid as needed for indigestion and is considering taking omeprazole daily. - Medication: Pepcid as needed, considering omeprazole daily. Kidney Transplant She underwent a kidney transplant in 09/2022 and is now under the care of a transplant doctor, whomashok sees every 6 months. She gets her [...] she checked it at home was on Friday,and it was 130/80. She does not check [...] for her transplant doctor. 3. Immunosuppressed status ([facility]) Kidney Transplant: Post-transplant September 2022. - Scheduled [...] nephropathy, without long-term current use of insulin ([facility]) Diabetes Mellitus: Stable. A1c 5.2. - Continue monitoring blood sugar levels. - Consider reducing Ozempic dosage if fatigue persists. 6. Iron deficiency anemia, unspecified iron deficiency anemia type Iron Deficiency: Chronic. - Take iron every other day. - Add vitamin C 500 mg diox-hph-tutcydn every other day to aid in absorption. [...] time of visit, but was available via real- time, audio/visual technology to supervise patient care. I am following Dr. Wong's plan of care for the above issues. documented in this encounterSSM Saint Mary's Health CenterNaiwzkpzyo82-96-8562 NotereUnSelect Medical Specialty Hospital - [facility], Inc07-01-2025 NoteExternal Glucose was entered incorrectly in the CMP results from 04/02/25. Correct Glucose was entered separately by clinic staff member.[facility]07-01-2025 NoteresUnSelect Medical Specialty Hospital [facility], Inc 04-05-2025 NoteResultsUnSelect Medical Specialty Hospital - [facility], Inc04-30-2025 NoteReviewed poatssium level and pt's request to switch to 10MEQ tabs with Dr. Monterroso. PO received ok to change to 10MEQ and increase to 30MEQ daily. Called pt notified of change and verified pharmacy. Pt requested refills on MagOx that her pharmacy told her the doctor did not approve. Music Minist[employer] Director refilled MagOx. Medication list updated.[facility]02-19-2025 Note Patient called stating a urine culture was supposed to be done on 11/12/24. No urine culture was done. Patient states she is still having symptoms of UTI. Patient would like a callback.[facility]02-07-2025 Note Transplant Clinic Patient : Mandeep Puri; [...] recently was seen at the ER in [facility], started on a course of Cipro, [...] flank pain. None today. Will order Ultrasound curyung and transplant kidney. Pt known hx: Chronic [...] 337 04/23/2024 Endocrine: L (more content not included)...[facility]02-04-2025 NotePatient called in this afternoon c/o ongoing urinary symptoms. She also has back pain, nausea and on/off low grade fever. Patient was treated with Keflex in mid October and recently given Cipro 250 mg BID by local ED. Reviewed with Dr. Elizondo who recommends patient come to ED to be evaluated and determine need for admission. Patient was updated and verbalized understanding.[facility]01-16-2025 NotePt was notified of new order from Dr. Davies by phone to complete Keflex 500mg TID for 1 week. Pt informed and verbalized understanding. RX was sent.[facility]01-16-2025 NoteNoted patient call to transplant clinic stating: Pt has uti sx's [...] had sepsis and was hospitalized @ [facility] four years ago. She at work today and seems in good humor.[facility]01-16-2025 NotePer phone order of Nelson Mcqueen MD, patient notified via phone call to decrease their medication Myfortic dose twice a day 360 mg , will now be on 360mg twice a day an no need for urology FU at this time. Pt informed by phone and verbalized understanding.[facility]01-16-2025 Note Pt called wanting to talk to Lu. She has uti sx's with low grade fever, chills, abd pain. She didn't think of this yesterday when she spoke with Lu. She does want to go ahead and get the abx called into [facility] in [facility]01-15-2025 NoteNoted urine culture report showing E coli MDRO from [facility]. Pt reports using BID Methamine after seeing [...] per this MD to FU with Dr. Nelson Davies in urology and start cranberry tabs OTC. Pt notified and verbalized understanding but uncertain that RV with urology will be helpful. Agrees to resume the cranberry tablets. Pt states prior to renal transplant her gang miner prescribed Bactrim for her to prevent UTIs and she wishes that the E Coli was gone from her urine. Verbalized understanding of colonization. Have asked urology clinic [place] staff via [employer] Chat to contact pt for FU with Dr. Davies. Will discuss with this MD plan for return visit.[facility]01-15-[address] [facility] [address] [facility] for results of 10/14/24 urine culture.[facility]01-07-2025 Note Patient called, states she is having urinary burning, urgency and [...] time due to possible infection. Patient verbalized understanding.[facility] 09-14-2024 History of Present illness Narrative* Carol Camacho MA - 09/14/2024 8:45 AM EST Images from the original note were not included. Blake Hinojosa, DO Obstetrics and Gynecology Mandeep Puri 1975 09/14/24 [id number] Ultrasound Follow Up Exam Chief Complaint Patient [...] in the morning and 30 mg before bedtime.Take with 60 MG tablet. DULoxetine (Cymbalta) 60 [...] INJECT 1 MG UNDER THE SKIN 1 (ONE)TIME PER WEEK 3 mL 3 tacrolimus ER [...] tolerable, and not persistent leave alone at thattime. Nothing suspicious. CARCINOEMBRYONIC ANTIGEN 0.0 - 3.0 ng/mL 1.0 CANCER ANTIGEN 125 0.0 - 38.1 12.9 Entered by Carol Camacho MA acting as scribe for Dr. Blake Hinojosa. Signature Carol Camacho MA Date 09/14/24 . Time 8:46 AM . The documentation recorded by the scribe accurately reflects the service(s) I personally performed and the decisions I made. Signature Ginette Ann.O. Date 09/14/24 Time 5:00PM. documented in this encounterSSM Saint Mary's Health [id number] NotePatient tac level is 8.2, per Dr Sharla anderson, patient notified to decrease envarsus by 0.5 mg, will now be on 1.5 mg daily of envarsus, repeat level in one week. Patient verbalized understanding.[facility]10-28-2024 History of Present illness Narrative* Carol Camacho MA - 08/02/2024 11:00 AM EDT Images from the original note were not included. Blake Hinojosa, DO Obstetrics and Gynecology Mandeep Puri 1975 08/02/24 [id number] Yearly Wellness Exam Chief Complaint Patient presents [...] in the morning and 30 mg before bedtime.Take with 60 MG tablet. DULoxetine (Cymbalta) 60 [...] INJECT 1 MG UNDER THE SKIN 1 (ONE)TIME PER WEEK 3 mL 3 tacrolimus ER [...] The documentation recorded by the scribe accurately reflectsthe service(s) I personally performed and the decisions I made. Signature Lona Hinojosa D.O. Date 08/02/24 Time 5:00PM. documented in this encounterSSM Saint Mary's Health [id number] History of Present illness Narrative* Lucero Hudson NP - 07/27/2024 8:20 AM EDT Images from the original note were not [...] INJECT 1 MG UNDER THE SKIN 1 (ONE)TIME PER WEEK tacrolimus ER (Envarsus XR) 1 MG tablet ER 2 tablets, Every morning Allergies Allergen Reactions Venlafaxine Other Reaction(s): Rash, hives Venlafaxine Hcl Other Reaction(s): bad side effect Allopurinol Rash Patient Active Problem List Diagnosis Benign essential hypertension (CMS/HCC) Fibromyalgia MICHELLE (iron deficiency anemia) RADHA (obstructive sleep apnea) Renal transplant recipient ([facility]) Type 2 diabetes mellitus with diabetic chronic kidney disease ([facility]) Mixed anxiety and depressive disorder Dyslipidemia ([facility]) Gastroesophageal reflux disease Immunosuppressive management encounter following kidney transplant ([facility]) ADPKD (autosomal dominant polycystic kidney disease) Polyarthritis of multiple sites Anxiety Anemia of renal disease NSTEMI (non-ST elevated myocardial infarction) ([facility]) Polycystic kidney disease Secondary hyperparathyroidism ([facility]) Tonsillolith Stage 4 chronic kidney disease ([facility]) Chronic kidney disease, stage 5 ([facility]) Gout Review of Systems Constitutional: Positive [...] follow-up. Lucero Hudson NP documented in this encounterSSM Saint Mary's Health [id number] Evaluation note* Encounter Date Diagnosis Assessment Notes Treatment Notes Treatment Clinical Notes Jul, Anemia of renal disease (ICD-10 - D63.1) Hb is within the goal and has low Iron stores. Continue oral iron daily Jul,hronic kidney disease, stage 5 (ICD-10 - N18.5)She has a CKD due to the ADPKD. Her b/l serum creatinine is 3.3- 3.6 mg/dL. She is interested in yoli e dialysis and would like to prefer PD. She has AV fistula which will need a revision. Positive thrill and bruit on exam. She is also active on the transplant list. Currently she has no indication toinitiate dialysis. Jul,en hy kid w cr kid I-IV (ICD-10 - I12.9)Blood pressure is controlled and she appears to be euvolemic..Continue lisinopril. Jul,econdary hyperparathyroidism (ICD-10 - N25.81)She has secondary hyperparathyroidism due to the hyperphosphatemia and CKD. I have advised low Phosphorus diet. Jul,DPKD (autosomal dominant polycystic kidney disease) (ICD-10 - Q61.2)She has advanced CKD due to polycystic kidney disease. Jul,Gout (ICD-10 - M10.9)She has gout and follows with a arborist climber. She takes Urolic and denies any recent gout flare Jul,Metabolic acidemia, unspecified (ICD-10 - P19.9)She has metabolic acidosis due to the advanced CKD. Continue oral Sodium Bicarbonate [facility] Other 09-28-2022 Evaluation note* Encounter Date Diagnosis Assessment Notes Treatment Notes Treatment Clinical Notes Jun, Polycystic kidney disease (ICD-1 0 - Q61.3) This patient's fistula is developing nicely. By physical examination it has a good thrill and bruit. The surgical incision is healing nicely. The fistula does feel a bit deep. We did discuss that shewould need a second procedure for transposition of the fistula once we allow it to mature a bit. Delgado see her back in the office in 6 or 8 weeks with graft flow scan of the AV fistula to evaluate maturation process and plan for transposition of her fistula. She does not currently require hemodialysis and follows closely with nephrology for routine monitoring of her kidney function. She verbalizes understanding of all discussion, agrees with this plan, denies any questions. Jun,hronic kidney disease, unspecified CKD stage (ICD-10 - N18.9) [facility] Other 09-13-2022 Procedure noteOhiohealth Southeastern Medical Center08-29-2022 Evaluation note* Encounter Date Diagnosis Assessment Notes Treatment Notes Treatment Clinical Notes May, Pre-op testing (ICD-10 - Z01.818 ) [facility] Other 08-25-2022 Evaluation note* Encounter Date Diagnosis Assessment Notes Treatment Notes Treatment Clinical Notes May, Chronic kidney disease, stage IV (severe) (ICD-10 - N18.4) We did talk about dialysis. We talked about dialysis access. He gave the patient a pamphlet handouttoday. Unfortunately I did review her vein mapping [...] will schedule this in the near future. [facility] Other 07-28-2022 Evaluation note* Encounter Date Diagnosis Assessment Notes Treatment Notes Treatment Clinical Notes Apr, Anemia of renal disease (ICD-10 - D63.1) Hb is within the goal and has adequate Iron stores. Continue oral iron daily Apr,hronic kidney disease, stage 5 (ICD-10 - N18.5)She has a CKD due to the ADPKD. Her b/l serum creatinine is 3.3- 3.6 mg/dL.. I have discussed with h er the course and prognosis of disease. I explained to her the potential need of JUMPBASTING LINING BASTER in future. I discussed with her different options of [employer]ING B[employer]ER including PD, HTN renal transplant. I provide informationabout her renal transplant centers. She is interested in home dialysis and would like to prefer PD.She agrees to have AV fistula just in case if the PD does not work for her. I havea referred her aga in to vascular surgery for AV fistula. Apr,en hy kid w cr kid I-IV (ICD-10 - I12.9)Blood pressure is controlled and she appears to be euvolemic..Continue lisinopril. Apr,Metabolic acidosis (ICD-10 - E87.2)She had metabolic acidosis due to the advanced CKD. Continue oral Sodium Bicarbonate Apr,econdary hyperparathyroidism (ICD-10 - N25.81)She has a second hyperparathyroidism due to the hyperphosphatemia and CKD. I have advised low Phosphorus diet. Apr,DPKD (autosomal dominant polycystic kidney disease) (ICD-10 - Q61.2)She has advanced CKD due to polycystic kidney disease. Apr,Gout (ICD-10 - M10.9)She has gout and follows with a arborist climber. She takes Urolic and denies any recent gout flare [facility] Other 07-26-2022 Evaluation note* Encounter Date Diagnosis Assessment Notes Treatment Notes Treatment Clinical Notes Apr, Bilateral acute otitis media (IC D-10 - H66.93) Ear infections are often a secondary infection caused from an URI, the flu or allergies. Take medication as directed. Complete all doses, even if you feel better. Tylenol or ibuprofen can help with pain. Warm pack to area for comfort helps as well. Follow up with primary care provider if no improvement of symptoms. [facility] Other 05-24-2022 Evaluation note* Encounter Date Diagnosis Assessment Notes Treatment Notes Treatment Clinical Notes February, Screening for colon cancer (ICD- 10 - Z12.11) [facility] Other 03-03-2022 Evaluation note* Encounter Date Diagnosis Assessment Notes Treatment Notes Treatment Clinical Notes Dec, Anemia of renal disease (ICD-10 - D63.1) Hb is within the goal and has adequate Iron stores. Continue oral iron daily Dec,hronic kidney disease, stage 5 (ICD-10 - N18.5) She has a CKD due to the ADPKD. Her serum creatinine is 3.6 mg/dL. Her renal function has been declining likely due to the progression of her CKD. I have discussed with her the course and prognosis of disease. I explained to her the potential need of JUMPBASTING LINING BASTER in future. I discussed with her different options of JUMP[employer]STING LINING BASTER including PD, HTN renal transplant. I provide information about her renal transplant centers. She is interested in home dialysis and would like to prefer PD. She agrees to have AV fistulajust in case if the PD does not work for her. I have advised her to schedule an appointment with vascular surgery for AV fistula. Dec,en hy kid w cr kid I-IV (ICD-10 - I12.9) Blood pressure is controlled and she appears to be euvolemic..Continue lisinopril. Dec,Metabolic acidosis (ICD-10 - E87.2) She had metabolic acidosis due to the advanced CKD. Continue oral Sodium Bicarbonate Dec,econdary hyperparathyroidism (ICD-10 - N25.81) She has a second hyperparathyroidism due to the hyperphosphatemia and CKD. I have advised low Phosphorus diet. Dec,DPKD (autosomal dominant polycystic kidney disease) (ICD-10 - Q61.2) She has advanced CKD due to polycystic kidney disease. Dec,Gout (ICD-10 - M10.9) She has gout and follows with a arborist climber. She takes Urolic and denies any recent gout flare [facility] 06-25-2021 NotePatient Outreach (NEPHMN) MANDEEP PURI ([id number]) 1975 F Date Time Provider Department 03/30/21 PERRI BARRETT During your visit today, we recorded the following information about you: Allergies As of Date: 03/30/2021 Noted Allergy Reaction ALLOPURINOL 08/02/2019 4 - Hives Date Reviewed: 03/30/2021 Reviewed by: Perri Barrett MD - Fully Assessed Visit Diagnosis:Screening for genitourinary condition [Z13.89] Order(s):URINALYSIS, DIPSTICK ONLY [SQUA] Order #: [id number]. #:[id number] Prescriptions as of 03/30/2021 Sig: DULOXETINE 60 [...] dis*03/30/2021 Encounter Status:Closed by EPIC, PRODUSER on 04/02/21[facility] 03-30-2021 NoteHNO ID: [id number] Author: Perri Barrett MD Service: ? Author Type: Physician Type: Progress Notes Filed: 03/30/2021 10:25 AM Note Text: Mrs. 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 [facility]rol[facility] general Narrative - Reported * Type Description Date Medical History HTN (hypertension) Medical HistoryAnxietyMedical Historypolycystic kidneysMedical HistoryCOVID [id number] HistoryC sectionSurgical HistoryBREAST REDUCTION Hospitalization Historychild birthHospitalization HistoryKIDNEY MEMIFXRKE82/2019 Hospitalization HistoryCOVID AND DEHYDRATION05/29/2020 [facility] 08-12-2020 History general Narrative - Reported* Type Description Date Medical History HTN (hypertension) Medical HistoryAnxietyMedical Historypolycystic kidneysMedical HistoryCOVID [id number] Historyend stage renal diseaseSurgical HistoryC sectionSurgical HistoryBREAST REDUCTIONSurgical Historycolonoscopy04/01/2022urgical History wisdom teeth03/24/2022Hospitalization Historychild birthHospitalization History KIDNEY FREKVITYM61/2019Hospitalization HistoryCOVID AND DEHYDRATION05/29/2020 [facility] 08-12-2020 History general Narrative - Reported* Type Description Date Medical History HTN (hypertension) Medical HistoryAnxietyMedical Historypolycystic kidneysMedical HistoryCOVID [id number] Historyend stage renal diseaseSurgical HistoryC sectionSurgical HistoryBREAST REDUCTIONSurgical Historycolonoscopy04/01/2022urgical History wisdom teeth03/24/2022urgical HistoryHYSTERECTOMYHospitalization Historychild birthHospitalization HistoryKIDNEY ZBSIHEPXB78/2019Hospitalization HistoryCOVID AND DEHYDRATION05/29/2020 [facility] 08-12-2020 History general Narrative - Reported* Type Description Date Medical History HTN (hypertension) Medical HistoryAnxietyMedical Historypolycystic kidneysMedical HistoryCOVID [id number] Historyend stage renal diseaseSurgical HistoryC sectionSurgical HistoryBREAST REDUCTIONSurgical Historycolonoscopy04/01/2022urgical History wisdom teeth03/24/2022urgical HistoryHYSTERECTOMYSurgical HistoryLEFT AV FISTULA 06/18/2022Hospitalization Historychild birthHospitalization HistoryKIDNEY RZIMUUEYX13/2019Hospitalization HistoryCOVID AND DEHYDRATION05/29/2020 [facility] Other Evaluation noteNo assessment information available [facility] Work Phone: Evaluation noteNo InformationNort [employer] Other Evaluation note* Diagnosis Onset Date Resolution Status Dysuria acuteUTI (urinary tract infection)acute [facility] Work Phone: Evaluation note* Diagnosis [...] Primary Essential hypertension, benign Renal transplant recipient (CMS/[facility]) Immunosuppressive management encounter following kidney transplant ([facility]) Encounter for long-term (current) use of [...] disease Immunosuppressive management encounter following kidney transplant ([facility]) Encounter for long-term (current) use of other medications Renal transplant recipient ([facility]) Type 2 diabetes mellitus with stage 3a chronic kidney disease, without long-term current use of insulin ([facility]) ([facility]) Dyslipidemia ([facility]) Other and unspecified hyperlipidemia documented in this encounter [facility] Healthcare[facility]* Diagnosis Benign essential hypertension- Primary Essential hypertension, benign ADPKD (autosomal dominant polycystic kidney disease) Congenital polycystic kidney, autosomal dominant Type 2 diabetes mellitus with stage 3a chronic kidney disease, without long-term current use of insulin ([facility]) Renal transplant recipient ([facility]) Mixed anxiety and depressive disorder Dysthymic disorder Chronic fatigue Other malaise and fatigue Encounter for general health examination Class 1 obesity due to excess calories with serious comorbidity and body mass index (BMI) of 34.0 to 34.9 in adult Fibromyalgia Unspecified myalgia and myositis Low vitamin D level documented in this encounter [facility] Healthcare[facility] note* Diagnosis Generalized abdominal pain- Primary Abdominal pain, generalized Hypokalemia Hypopotassemia Immunosuppressed status ([facility]) Essential hypertension Unspecified essential hypertension Type 2 diabetes mellitus with diabetic nephropathy, without long-term current use of insulin ([facility]) Iron deficiency anemia, unspecified iron deficiency anemia type Gastroesophageal reflux disease without esophagitis Esophageal reflux Fibromyalgia Unspecified myalgia and myositis documented in this encounter [facility] HealthcareReason for referral (narrative)No reason for referral information available[facility] Work [facility]: Assessments Diagnosis Acute sepsis ([facility])- Primary Acute cystitis without hematuria Acute cystitis Chronic renal failure, stage 4 (severe) ([facility]) Polycystic kidney disease Polycystic kidney, unspecified type Advance Directives No Advanced Directives Records FoundDocuments on File TypeDate RecordedPatient RepresentativeExplanationAdvance Directives and Living WillPower of Nurses Medical Assistants Phlebotomists Advance Directive Response Recorded Date/ Time Advance Directives No December 12 12:26pm Advance Directive Response Recorded Date/ Time Advance Directives No December 12 11:26am Summary Purpose Family History No Family History Records Found Relationship Condition Age at Onset Recorded Date/T citlaly family member End-stage renal disease Unknown grandparentDiabetes mellitusUnknownsisterDiabetes mellitusUnknownPolycystic kidney diseaseUnknownRheumatoid arthritisUnknownFibromyalgiaUnknownfather Myocardial infarctionUnknownbrotherPolycystic kidney diseaseUnknownNot Specified FibromyalgiaUnknown Relationship Condition Age at Onset Recorded Date/T citlaly family member End-stage renal disease Unknown grandparentDiabetes mellitusUnknownsisterDiabetes mellitusUnknownPolycystic kidney diseaseUnknownRheumatoid arthritisUnknownFibromyalgiaUnknownfather Myocardial infarctionUnknownbrotherPolycystic kidney diseaseUnknownNot Specified FibromyalgiaUnknownbrotherHypertensionUnknownfatherHeart diseaseUnknownDeceased UnknownsisterHypertensionUnknown Relationship Condition Age at Onset Recorded Date/T citlaly family member End-stage renal disease Unknown grandparentDiabetes mellitusUnknownsisterDiabetes mellitusUnknownPolycystic kidney diseaseUnknownRheumatoid arthritisUnknownFibromyalgiaUnknownfather Myocardial infarctionUnknownbrotherPolycystic kidney diseaseUnknownmother FibromyalgiaUnknownbrotherHypertensionUnknownfatherHeart diseaseUnknownDeceased UnknownsisterHypertensionUnknown Chief Complaint and Reason for Visit Chief Complaint Screening Screening z01.818 ESRD Chief Complaint Screening Screening z01.818 ESRD ESRD Chief Complaint Screening Screening z01.818 ESRD ESRD ESRD Chief Complaint z01.818 ESRD ESRD ESRD left arm pain Z12.31 Chief Complaint Poss UTI DysuriaReason for VisitDysuria UTI (urinary tract infection) Chief Complaint N83.202 [...] for Visit (unrecogniz ed section and content) ReasonCommentsChest Painwas seen at her PCP today and was told her urine has e.coli in it; CP started about 20-30 minutes agoBack PainReasonCommentsURIReason CommentsFollow-upPt here after in house pelvic US for left ovarian lesion, 3.[address] 07/02/24.ReasonCommentsFollow-up6w follow up for LT ovarian pain. Tumor markers neg.ReasonComments6 mos. follow upReasonCommentsdiscuss changing OzempicPatient would like to know if she is starting menopause? She has been getting facial hair, fatigue,and blurred vision.ReasonCommentsAnnual ExamPt is being seen today for her annual physical and managment of her chronic conditions. Pt had lab work done in preparations for todays visit, results and recommendations will be reviewed with them.FatigueConstipationReasonComments Abdominal PainBetter now. INFORMATION SOURCE (unrecogn ized section and content) DATE CREATED AUTHOR 08/04/2019 [facility] DATE CREATED AUTHOR AUTHOR'S ORGANIZ ATION 04/28/2020 [facility] DATE CREATED AUTHOR AUTHOR'S ORGANIZ ATION 09/12/2020 [facility] DATE CREATED AUTHOR AUTHOR'S ORGANIZ ATION 11/07/2021 [facility] DATE CREATED AUTHOR AUTHOR'S ORGANIZ ATION 02/27/2022 [facility] DATE CREATED AUTHOR AUTHOR'S ORGANIZ ATION 08/04/2022 [facility] DATE CREATED AUTHOR AUTHOR'S ORGANIZ ATION 05/29/2025 [facility] DATE CREATED AUTHOR AUTHOR'S ORGANIZ ATION 06/19/2025 [facility] DATE CREATED AUTHOR AUTHOR'S ORGANIZ ATION 07/29/2025 [facility] Care Teams (unrecognized sec tion and content) Team Status: Inactive Member Role Status Dates Ming Espinoza DO Primary Care Provider Active Tonya De La Fuente ProviderActive Team Status: Inactive Member Role Status Dates Ming Espinoza DO Primary Care Provider Active Tonya Lam ProviderActive Team Status: Inactive Member Role Status Dates Ming Espinoza DO Primary Care Provider Active Tonya Izquierdo ProviderActive Team Status: Active Member Role Status Dates Ming Espinoza DO Primary Care Provider Active Team Status: Inactive Member Role Status Dates Ming Espinoza DO Primary Care Provider Active Kristina Olivo ProviderActive Team Status: Inactive Member Role Status Dates Ming Espinoza DO Primary Care Provider Active Blake Hinojosa DOAttphilip ProviderActive Team Status: Inactive Member Role Status Dates Ming Espinoza DO Primary Care Provider Active Start: November 06, 2023 End: November 06obert Brenna MDAttphilip ProviderActiveStart: November 06, 2023 End: November 06, 2023 Team Status: Inactive Member Role Status Dates Ming Espinoza DO Primary Care Provider Active Start: March 15, 2024 End: March 15ranulfo Edwards APRNAttenpernell ProviderActiveStart: March 15, 2024 End: March 15, 2024 Team Status: Inactive Member Role Status Dates Andreia Edwards , CECILIA Attending Provider Active S tart: March 15, 2024 End: March 15, 2024Team MemberRelationshipSpecialtyStart DateEnd Date Ming Espinoza DO [address] [place] [address] PCP - [facility]10/06/2211 Ming Espinoza DO [address] [place] [address] PCP - GeneralInternal Medicine05/02/23Team MemberRelationshipSpecialtyStart Date End Date Ming Espinoza DO [address] [place] [address] PCP - [facility]10/06/2211 Ming Espinoza DO [address] [place] [address] PCP - GeneralInternal Medicine05/02/23Team MemberRelationshipSpecialtyStart Date End Date Ming Espinoza DO [address] [place] [address] PCP - [facility]10/06/2211 Ming Espinoza DO [address] [place] [address] PCP - [facility]05/02/23Team MemberRelationshipSpecialtyStart Date End Date Ming Espinoza DO [address] [place] [address] [facility]10/06/2211 Ming Espinoza DO [address] [place] [address] PCP - [facility]05/02/23 Team Status: Inactive Member Role Status Dates Ming Espinoza DO Primary Care Provider Active Start: August 02, 2024 End: August 02, 2024Tonya Soto ProviderActiveStart: August 02, 2024 End: August 02, 2024Marek Navas ProviderActiveStart: August 02, 2024 End: August 02, 2024 Team Status: Inactive Member Role Status Dates Blake Hinojosa DO Attending Provider Active Start: August 25, 2024 End: August 25, 2024Olivia Ramos [facility] ProviderActiveStart: August 25, 2024 End: August 25, 2024Team MemberRelationshipSpecialtyStart DateEnd Date Ming Espinoza DO [address] [place] [address] PCP - [facility]10/06/2211 Ming Espinoza DO [address] [place] [address] PCP - GeneralInternal Medicine05/02/23am MemberRelationshipSpecialtyStart Date End Date Ming Espinoza DO [address] [place] [address] PCP - [facility]10/06/2211 Ming Espinoza DO [address] [place] [address] [facility]05/02/23 MemberRelationshipSpecialtyStart Date End Date Ming Espinoza DO [address] [place] [address] PCP - [facility]10/06/2211 Ming Espinoza DO [address] [place] [address] [facility]05/02/23 MemberRelationshipSpecialtyStart Date End Date Ming Espinoza DO [address] [place] [address] PCP - [facility]10/06/2211 Ming Espinoza DO [address] [place] [address] PCP - GeneralInternal Medicine05/02/23 MemberRelationshipSpecialtyStart Date End Date Ming Espinoza DO [address] [place] [address] PCP - [facility]10/06/2211 Ming Espinoza DO [address] [place] [address] [facility] Team Status: Inactive Member Role Status Dates Ming Espinoza DO Primary Care Provider Active Start: October 14, 2024 End: October 14, 2024DeTonya Henderson ProviderActiveStart: October 14, 2024 End: October 14, 2024Team MemberRelationshipSpecialtyStart DateEnd Date Ming Espinoza DO [address] [place] [address] PCP - [facility]10/06/2211 Ming Espinoza DO [address] [place] [address] PCP - [facility]05/02/23Team MemberRelationshipSpecialtyStart Date End Date Ming Espinoza DO [address] [place] [address] PCP - [facility]10/06/2211 Ming Espinoza DO [address] [place] [address] PCP - [facility]05/02/23Team MemberRelationshipSpecialtyStart Date End Date Ming Espinoza DO [address] [place] [address] PCP - [facility]10/06/2211 Ming Espinoza DO [address] [place] [address] PCP - [facility]Internal [facility]05/02/23 Team Status: Active Member Role Status Dates Perri Wong MD Primary Care Provider Active Team Status: Inactive Member Role Status Dates Perri Wong MD Primary Care Provider Active St art: May 24, 2025 End: May 24, 2025Padakota Stein DOEmergency ProviderActiveStart: May 24, 2025 End: May 24, 2025Team MemberRelationshipSpecialtyStart DateEnd Date Ming Espinoza DO [address] [place] [address] PCP - [facility]10/06/2211 Perri Wong MD [address] [place] [address] [facility] - [facility]05/24/25Team MemberRelationshipSpecialtyStart Date End Date Ming Espinoza DO [address] [place] [address] PCP - [facility]10/06/2211 Perri Wong MD [address] [place] [address] PCP - GeneralInternal Medicine05/24/25Team MemberRelationshipSpecialtyStart Date End Date Ming Espinoza DO [address] [place] [address] PCP - [facility]10/06/2211 Perri Wong MD [address] [place] [address] PCP - GeneralInternal Medicine05/24/25 Goals (unrecognized section and content) Goals may [...] BE BASED ON THE PRIMARY CLINICAL RECORDS. [facility]. provides no warranty or guarantee of the accuracy or completeness of information in this document.
[2025-08-03 07:22] LABS: Hematocrit 39.1 % (36.0-48.0); Hemoglobin 12.9 g/dL (12.0-16.0); Immature Granulocytes Abs Auto 0.06 10^3/uL (0.00-0.03); Immature Granulocytes Pct Auto 0.7 % (0.0-0.5); Lymphocytes Absolute Auto 1.4 10^3/uL (1.2-3.8); Mean Corpuscular HGB Conc 33.0 g/dL (29.9-35.2); Mean Corpuscular Hemoglobin 28.9 pg (26.7-34.0); Mean Corpuscular Volume 87.5 fL (81.0-99.0); Platelet Count 295 10^3/uL (150-450); Red Blood Count 4.47 10^6/uL (4.20-5.40); White Blood Count 8.9 10^3/uL (4.0-11.0)
[2025-08-03 08:02] LABS: Alanine Aminotransferase 21 U/L (14-59); Albumin Globulin Ratio 1.0; Albumin Level 3.6 g/dL (3.4-5.0); Alkaline Phosphatase 77 U/L (46-116); Anion Gap 12.0; Aspartate Amino Transferase 18 U/L (15-37); Blood Urea Nitrogen 10.0 mg/dL (7.0-18.0); Calcium 9.4 mg/dL (8.5-10.1); Carbon Dioxide 25.2 mmol/L (21.0-32.0); Chloride 105 mmol/L (98-107); Estimated GFR (African America >60 (>=60 mL/min/1.73m^2); Estimated GFR (Non-African Ame 50 (>=60 mL/min/1.73m^2); Globulin 3.7 g/dL; Glucose 118 mg/dL (74-106); Magnesium 1.6 mg/dL (1.8-2.4); Potassium 3.2 mmol/L (3.5-5.1); Sodium 139 mmol/L (136-145); Total Protein 7.3 g/dL (6.4-8.2); Uric Acid 4.5 mg/dL (2.6-6.0)
== END 2025-08-03 07:06 | disposition home or self-care (01) ==
LOC: LAB 07:05
PROVIDERS: PCP Internal Medicine
DX: R73.01 Impaired fasting glucose (principal); Z94.0 Kidney transplant status; E78.5 Hyperlipidemia, unspecified; R60.9 Edema, unspecified
CPT/HCPCS: 36415; 80053; 80197; 82248; 83735; 84100; 84550; 85025

== ENCOUNTER 2025-09-03 08:52 | Outpatient (OUT) | payer OTHER, SELFPAY ==
--- OUTSIDE RECORDS SUMMARY | 2025-08-27 19:09 | XMS_ITS | Continuity of Care Document ---
Author Organization [facility] Address [address] [place] [address] Phone Care Team Providers Care Stock Counter Name Role Phone Triston Wong MD Primary Care Provider Self, Referral Attending Provider Unavailable Blake Hinojosa DO Referring Provider Care Teams Patient Care Team Team Status: Active Member Role/Relationship Status Dates Triston Wong MD Primary Care Provider Active Patient Care Team Team Status: Inactive Member Role/Relationship Status Dates Triston Wong MD Primary Care Provider Active St art: August 27, 2025 End: August 27, 2025Referral SelfAttending ProviderActiveStart: August 27, 2025 End: August 27, 2025WillHELENA Montanoeferring ProviderActiveStart: August 27, 2025 End: August 27, 2025 Chief Complaint and Reason for Visit Chief Complaint Admit Date Screening August 27, 2025 9:42am Allergies, Adverse Reactions, Alerts Allergen Type Severity Reaction Last Updated Verified Status allopurinol Allergy Unknown Rash, hives May 24, 2025 11:33a m Yes Active venlafaxine Allergy Unknown Rash, hives May 24, 2025 11:33a m Yes Active Social History Smoking Status Status Start Date End Date Date of Observa tion Never smoked tobacco (finding) May 24, 2025 12:30pm Observation Status Observation Response Date of Response Legal Sex Female (finding) Sex Assigned At BirthFemaleFebruary 1975 Family History Relationship Condition Age at Onset Recorded Date/T citlaly family member End-stage renal disease Unknown grandparentDiabetes mellitusUnknownsisterDiabetes mellitusUnknownPolycystic kidney diseaseUnknownRheumatoid arthritisUnknownFibromyalgiaUnknownfather Myocardial infarctionUnknownPolycystic kidney diseaseUnknownbrotherPolycystic kidney diseaseUnknownRheumatoid arthritisUnknownmotherFibromyalgiaUnknownbrother HypertensionUnknownfatherHeart diseaseUnknownDeceasedUnknownsisterHypertension Unknown Problems Active Problems Problem Diagnosis/Recorded Date Onset Date Stat us Acute kidney injury January 19, 2019 4:58am Unknown Active Postoperative ecchymosis June 20, 2022 3:15pm U nknown Active UTI (urinary tract infection) August 03, 2019 6:28a m Unknown Active UTI (urinary tract infection) May 21, 2020 11:43p m Unknown Active Secondary hyperparathyroidism January 19, 2019 9:58am Unknown Active Secondary hyperparathyroidism March 15, 2024 4:40pm U nknown Active Pruritic condition August 03, 2019 11:15am Unknown Active Polycystic kidney disease January 19, 2019 4:58am Unkn own Active Tonsillolith March 15, 2024 4:40pm Unknown Activ e Sepsis secondary to UTI August 03, 2019 11:02am Unk nown Active Fever May 21, 2020 11:43pm Unknown Ac tive Gout March 15, 2024 4:40pm Unknown Activ e Polycystic kidney disease March 15, 2024 4:40pm Unkno wn Active CKD (chronic kidney disease) stage 4, GFR 15-29 ml/min January 19, 2019 9:56am Unknown Active Anxiety March 15, 2024 4:40pm Unknown Activ e Hypertensive chronic kidney disease with stage 1 through stage 4 chronic kidney disease, or unspecified chronic kidney disease January 19, 2019 9:57am Unknown Active Dysuria January 19, 2019 4:58am Unknown Acti ve Hyperuricemia January 19, 2019 10:06am Unknown Ac tive Arm pain, left June 20, 2022 3:15pm Unknown Active Chronic kidney disease, stage 5 March 15, 2024 4:40pm Unknown Active NSTEMI (non-ST elevated myoc ardial infarction) August 03, 2019 6:28am Unknown Active Pyelonephritis January 19, 2019 4:57am Unknown Ac tive Iron deficiency anemia March 15, 2024 4:40pm Unknown Active Anemia of renal disease January 19, 2019 9:58am Unknow n Active Vitamin D deficiency January 20, 2019 11:13am Unknown Active Medications Medication Status Dose Units Route Directions Qty Days Refills S tart Date Stop Date End Date Reason(s) Instructions Adherence Cephalexin 500 mg capsule Active 500 MG PO Twice daily 14 7 0 March 23, 2024 11:00pm UnknownFebuxostat (Uloric) 40 mg AycbrwXwrkemtcxpvc55AANLNrtrh morningOct2018 11:00pmJun2023 4:37pmAcetaminophen (Tylenol Extra Strength) 500 mg RoxcgwAxtrev9866TUSFRgzft as needed for Muscle PainAugust 01, 2019 11:00pmUnknownFerrous Sulfate 324 mg (65 mg iron) Tablet,Delayed Release (Dr/Ec) Gefhnofryypj815BKQFMsfqa jsfxp00322Jrolzpc 30th, 2019 11:00pmJune 2021 6:05amCephalexin (Keflex) 500 mg pdqqccvCwrbivpoqnzh525SQZHHmwkp besrx60737 August 04, 2019 11:00pmAugust 2019 8:38pmLisinopril 20 mg tablet Muvcalvhhoym95VYXUJdfmo094Mlnyksb 30th, 2019 11:00pmA[facility] hospital[facility] 2021 8:10am Ciprofloxacin Hcl (Cipro) 250 mg yjcrpqRyyzhotcccam074BYBJO13V718Iopcps 2019 11:00pmJune 2021 6:03amSodium Bicarbonate 650 mg TabletDiscontinued 650MGPOTwice dailyJune 2021 11:00pmJun2023 4:37pmCephalexin 500 mg DccgacpFiwnpqdnkktv152OCSOPplm times dailyJun2021 11:00pmAugust 2021 8:02amFerrous Sulfate 27 mg iron XnranzLxeancreznzg20RMDYP9QTuur 2021 11:00pmJun2023 4:30pmLisinopril-Hydrochlorothiazide 20-12.5 mg tablet Fdrrnsjklokf4KLYKAApbdeYlypn 2018 11:00pmOctober 2018 3:31pm Duloxetine 60 mg capsule,delayed release(DR/EC)Nafjqi19LCXZPyssq morningApril 2018 11:00pmUnknownCalcium Carbonate (Tums) 200 mg calcium (500 mg) Tablet,UnyvpxkpKtfhbmyqwquk921ARERZysj times daily as needed for HeartburnApril 2018 11:00pmOctober 2018 4:51pmFerrous Sulfate 324 mg (65 mg iron) Tablet,Delayed Release (Dr/Ec)Uhdvbttfrfue315BSAYQejuy kzkvl792Jsqno 2018 11:00pmOctober 2018 4:52pmCephalexin (Keflex) 500 mg capsuleDiscontinued 698JCDTJ3L3522Xiqwp 2018 11:00pmOctsaint joseph [facility] 2018 4:51pmErgocalciferol (Vitamin D2) 50,000 unit polqfcqLfmiidzcvhon50726KPEHEObtpvj wwwbi456Kouko 2018 11:00pmOctsaint joseph [facility] 2018 4:53pmCalcitriol (Rocaltrol) 0.25 mcg Capsule Discontinued0.25MCGPOMoWeFr@2420997Iaukp 2018 11:00pmOctsaint joseph [facility]rea 2018 4:53pmLisinopril 20 mg ihooqaGaymkgbqnukx51QPLIWglfw morningAugust 2021 8:09amJune 2023 4:37pmTacrolimus (Envarsus Xr) 1 mg tablet extended release 24 hrActiveMGPOJune 2023 11:00pmUnknownMycophenolate Sodium 180 mg tablet,delayed release (DR/EC)Lvccbs786UZRNWxlxlRivh 2023 11:00pmUnknown Semaglutide (Ozempic) 2 mg/dose (8 mg/3 mL) pen injectorActiveMGSUBCUTJune 2023 11:00pmUnknownMagnesium Oxide 400 mg (241.3 mg magnesium) gpxubpRpecoo779AY PODaily at bedtimeJune 2023 11:00pmUnknownPotassium Chloride (Klor-Con M20) 20 mEq tablet,ER particles/isjlkyjlLtbkfc08VOPVZZqxipMzzc 2023 11:00pm UnknownPravastatin 40 mg hjrkjpZjslwu88TCJVRwpyoMxrh 2023 11:00pmUnknown Amlodipine 10 mg lfwqvyNmodyd56XPZKCodlgRcal 2023 11:00pmUnknownCetirizine (Zyrtec) 10 mg ledlpdExjntu93GGKUFogdbKywo 2023 11:00pmFreeTextSi tablet as needed Orally Once a day; Note: Source Status: Taking; Provider: Delma Whitney ( )UnknownFerrous Sulfate 325 mg (65 mg iron) recrlrVwjjzi101XJBQGbaflWwpb 2023 11:00pmUnknownMultivitamin (Multiple Vitamins) qqwwqrNexbaa7SJFNDUtsgcYxxf 2023 11:00pmUnknownSulfamethoxazole- Trimethoprim (Bactrim Ds) 800-160 mg zqyzojCaubze7JOQAZLynze chonf4120Rypj 2023 11:00pmUnknown Immunizations Immunization Event Date Not Given Reason Dose Number [employer] Lot Number Reason(s) Given Vaccine Information Statement (VIS) Detail Administration Location COVID-19 Ad26.COV2.S (Mouth Party) October 13, 2021 Procedures Procedure Date Performed Status MM screening mammo BI w/CAD August 27, 2025 9:44am active Advance Directives Advance Directive Response Recorded Date/ Time Advance Directives No December 12 11:26am Insurance Providers Guarantor Patsy Puri Address [address] [facility] [id number] Info.Home Phone: Payer Group Member ID Coverage Type Subscriber Relationship to Subscriber Effective Date Expiration Date MMO Id: [id number] L Britt Id: [id number] [address] [facility] [address] Home Phone: Encounters Encounter Location(s) Arrival/Admit Date Discharge/Departure Date Discharge/Departure Disposition Provider(s) [facility] August 27, 2025 9:42am August 27, 2025 9:43am Discharged to home care or self care (routine discharge) REFERRAL SELF Plan of Treatment Future Tests Future scheduled test information is unavailable Pending Tests Test Name Ordered Date Scheduled Date MM screening mammo BI w/CAD August 27, 2025 9:44am August 27, 2025 9:44am Future Visits Future appointment information is unavailable Future Procedures Future procedure information is unavailable Future Medications Future medication information is unavailable Patient Instructions Patient instructions are unavailable
--- OUTSIDE RECORDS SUMMARY | 2025-09-03 08:57 | XMS_ITS | Clinical Summary ---
Author Organization [facility] Address [address] [place] [address] Care Team Providers Care Tattoo Artist Name Role Phone Ioana, Ming Mark Primary Care Provider + Allergies Active AllergyReactionsCriticalityNoted VvyzFmbxotyzPtxejggqxlvHpofo46/28/2019 Medications MedicationSigDispense QuantityRefillsLast FilledStart DateEnd DateStatus DULoxetine (CYMBALTA) 60 mg capsule Duloxetine Active 30 MG Oral Daily January 19, 2019 6:40am10/06/2013ctive febuxostat (ULORIC) 40 mg tab Febuxostat Active 20 MG Oral Daily August 02, 2019 5:51pm01/09/2018Active ferrous sulfate 325 mg (65 mg iron) EC tablet Take 325 mg by mouth.08/27/2019Active lisinopril (ZESTRIL, PRINIVIL) 20 mg tablet Lisinopril Active 20 MG Oral Daily August 05, 2019 4:31pm1Active SODIUM BICARBONATE 0.6 MOLAR 10/06/2018Active furosemide (LASIX) 20 mg tablet Take 20 mg by mouth once daily.Active Active Problems ProblemNoted DateDiagnosed DateADPKD (autosomal dominant polycystic kidney disease)03/30/2021 Social History Tobacco UseTypesPacks/DayYears UsedDateSmoking Tobacco: Never AssessedArea Deprivation IndexAnswerDate RecordedNational Score (1-100), lower number is lower riskNot on file03/30/2021tate Score (1-10), lower number is lower riskNot on file03/30/2021ata from: https://www.neighborhoodatlas.medicine[facility] [place]/. Last address used for calculationNot on file1CommentsUnknownSex and Gender InformationValueDate RecordedSex Assigned at BirthNot on fileLegal WwcFihiqn33/02/2018 8:53 AM ESTGender IdentityNot on fileSexual OrientationNot on file Last Filed Vital Signs Vital SignReadingTime TakenCommentsBlood Dibmofrm860/7706 8:59 AM EDT Tnkyj464503/30/2021 8:59 AM GFXTivdvxddvzc21.8 ??C (98.2 ??F)03/30/2021 8:59 AM EDTRespiratory Rate--Oxygen Saturation--Inhaled Oxygen Concentration--Btemub20 kg (205 lb)03/30/2021 8:59 AM LNEPeekps333.9 cm (5' 1 )03/30/2021 8:59 AM EDT Body Mass Index38.7303/30/2021 8:59 AM EDT Plan of Treatment Health MaintenanceDue DateLast DoneCommentsAnxiety Obalpzwjs60/15/1994Depression Zgnrcnfpf66/15/1994HIV Kfngdaazb67/15/1994Hepatitis C Kwwaeuzrd11/15/1994 DTaP,Tdap,Td Vaccine (1 - Tdap)1994Hepatitis B Vaccine (1 of 3 - 19+ 3- dose series)1994Cervical Cancer Ykvqawdui15/15/1997Mammogram Screening 2015CT Ynnkldzrzsik31/15/2021ologuard (FIT-DNA)2020olonoscopy 1Colorectal Cancer Ryhfgqwbd23/15/2021Fecal Occult Blood1Lipid Kzjprcqnf80/15/2667Vvlereqjtyrvd65/15/2021Diabetes Zbcepvsdf36 Covid-19 Vaccine ( season)2025Influenza Vaccine (#1)2025 05/29/2020, 08/11/2019 Insurance * Guarantor: Mandeep Puri LAccount TypeRelation to PatientDate of BirthPhone Billing AddressPersonal/UniohxIxan82/15/1976 [address] [place] [address] Care Teams Team MemberRelationshipSpecialtyStart DateEnd Date Ming Triplett DO [address] [place] [address] PCP - GeneralInternal Medicine11/07/17
--- OUTSIDE RECORDS SUMMARY | 2025-09-03 08:57 | XMS_ITS | Clinical Summary ---
Author Organization [facility] Address [address] [facility] [place] [address] Care Team Providers Care Order Expediter Name Role Phone Ming Triplett DO Unavailable [phone] Triston Wong MD Primary Care Provider [phone] Allergies Active AllergyReactionsCriticalityNoted HgifTulabkznAezeweljvikXtulNzu84/15/2023 Fobxtledkdx12/10/2024 Other Reaction(s): Rash, hives Venlafaxine Hcl02/17/2023 Other [...] IN THE MORNING AND 2 TABLETS AT HXPNVQH2206/22/2024ctive DULoxetine (Cymbalta) [address] capsule Take [...] 2 MG SUBCUTANEOUSLY WEEKLY 9 mL 5Active Active Problems ProblemNoted DateDiagnosed DateType 2 diabetes mellitus with diabetic nephropathy, without long-term current use of mzlwwil5805/27/2025History of gout 05/27/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 involving multiple dfqgjw8005/27/2025Pure vkqqwssiltgkrntffwek26/22/2025Moderate major crzctvokfj81/22/2025GAD (generalized anxiety disorder)05/27/2025Stage 3a chronic kidney disease (CKD) 10/01/2024Secondary lufeuvizqujseklhdht73/12/2024Essential hypertension 03/04/20237076Vlvpwebecaeh18/30/2023IDA (iron deficiency anemia)03/04/2023Renal transplant vpamubcsg92/30/2023astroesophageal reflux disease without zkkwyegtebu63/26/2022DPKD (autosomal dominant polycystic kidney disease) 03/30/2021 Resolved Problems ProblemNoted DateDiagnosed DateResolved DateNSTEMI (non-ST elevated myocardial infarction)/hronic kidney disease, stage 5004/16/2024 10/01/2024HTN (hypertension)/05/20236695Bibwhorejjdti47/30/2023 03/13/2023IFG (impaired fasting glucose)/05/2023OSA (obstructive sleep apnea)/KD (chronic kidney disease) stage 4, GFR 15-29 ml/min/outy gjzawgpvn20/05/2023Stage 4 chronic kidney rwhbmmi83/ Encounters DateTypeDepartmentCare BehlUnabpkjlxne08/24/2025External Result Encounter [facility] External [facility] Unsolicited Provider, Generic External Data 08/03/2025linisync Result Encounter [facility] External Department Unsolicited Provider, Generic External Data 07/27/2025Refill [facility] [place] [facility] [address] [place] [address] Ming Triplett, DO Type 2 diabetes mellitus with stage 3a chronic kidney disease, without long-term current use of insulin ([facility])07/05/2025linisync Result Encounter [facility] External Department Unsolicited Provider, Generic External Data 07/05/2025Refill [facility] [place] [facility] [address] [facility] [place] [address] Ming Triplett, DO Essential hypertensionfrom Last 3 Months Immunizations ImmunizationAdministration DatesNext DueInfluenza, High Dose Seasonal, Preservative Free05/29/2020Influenza, Injectable, MDCK, preservative free 08/11/2019Influenza, [facility] [place] Canine Kidney, subunit, trivalent, injectable, contains otmfbtfjwjva22/27/2024Influenza, injectable, MDCK, preservative free, inmlznyfvxyj12/21/2024Influenza, seasonal, intradermal, preservative free 07/22/2014Pneumococcal Polysaccharide [id number] Family History Medical HistoryRelationNameCommentsNo Known ProblemsBrotherHeart diseaseFather [...] 04/11/2025CommentsNoSex and Gender InformationValueDate RecordedSex Assigned at EgvxoEoizfm85/20/2023 2:02 PM EDTLegal WmdZqwpnq58/15/2023 6:37 PM EDTGender UkvabdlrUlefbd21/20/2023 2:02 PM EDTSexual OrientationStraight 10/08/2023 9:32 AM ESTOccupationIndustryJob Start DateJob End DateUnemployedNot on fileNot on fileNot on file Last Filed Vital Signs Vital SignReadingTime TakenCommentsBlood Oisobrbb842/8008 2:23 PM EDT Rvyxu8698 2:23 PM RSBSedqtbrmipm43.6 ??C (97.8 ??F)07/27/2024 8:34 AM EDTRespiratory Rate--Oxygen Xdwtqlmrsk43%05/27/2025 2:23 PM EDTInhaled Oxygen Concentration--Fnbdyk90.5 kg (184 lb)05/27/2025 2:23 PM BSCWzlvhq986.9 cm (5' 1 )05/27/2025 2:23 PM EDTBody Mass Index34.7708 2:23 PM EDT Plan of Treatment DateTypeDepartmentCare Team (Latest Contact Info)Ghdhugcaajw52/12/2026 8:30 AM ESTOffice Visit [facility] [address] [place] [address] Health MaintenanceDue DateLast DoneCommentsCT Vkqkudsoenli52/15/1976FIT-DNA 1975FIT1975FOBT1975 4128Wfpzmyhstfubi77/15/1976Diabetes: Retinopathy Dftgpmusl68/15/1986Pneumococcal Vaccine: Pediatrics (0 to 5 Years) and At-Risk Patients (6 to 64 Years) (2 of 2 - PCV)COVID-19 Vaccine (2 - Ainsley risk series)/2Diabetes: Urine Protein Xhapwlsxu44, 04/27/2022, 04/27/2022, Additional history exists Diabetes: Hemoglobin A1C/, 04/23/2024, 04/23/2024, Additional history existsInfluenza Vaccine (#1)/, 10/26/2023, 05/29/2020, Additional history mtzawdJegaljcwi87/24/444663/, 08/25/2024, 07/31/2023, Additional history xorzijKhpqwomjzzx02/27/203206/27/2022Colorectal Cancer Xxzilmlby19/27/2032Cervical Cancer ScreeningDiscontinuedHPV/Cotest Jogfjhghfhsn11/15/2024Pap SmearDiscontinued Procedures Procedure NamePriorityDate/TimeAssociated DiagnosisCommentsBI MAMMOGRAM SCREENING TOMOSYNTHESIS ZGEYFQXMM35/24/2025 8:50 AM EST TACROLIMUS (FK506), ESBKFHypwpav10/29/2025 7:15 AM EDT METRO BILIRUBIN, BLTLOIYkbktoy32/29/2025 7:15 AM EDT ALL QHWBOKUQYXdhodjy13/29/2025 7:15 AM EDT ALL TWHRVCTZDKLOagoxvn49/29/2025 7:15 AM EDT ALL URIC LVZCBbsvhjt07/29/2025 7:15 AM EDT CCF CMP (CMP) (FOR REMOTE [facility] USE)Fuxmvrc2608/03/2025 7:15 AM EDT ALL CBC WITH AUTO SBTPYdhsqmb56/29/2025 7:15 AM EDT TACROLIMUS (FK506), YLJEWBuwuvdt22/30/2025 7:25 AM EDT BKV QUANT EKIHwxdfht68/30/2025 7:25 AM EDT ALL LIPID PROFILE (FASTING)Zslnxhc0907/05/2025 7:25 AM EDT METRO BILIRUBIN, HHAFNVAbbnxpj12/30/2025 7:25 AM EDT ALL LEBJUZACOAzpqyjk69/30/2025 7:25 AM EDT ALL KWJTUOLFJHXIvewcug37/30/2025 7:25 AM EDT ALL URIC WPCEEomnpxe84/30/2025 7:25 AM EDT CCF CMP (CMP) (FOR REMOTE [facility] USE)Zahsowu7507/05/2025 7:25 AM EDT MLR HEMOGLOBIN Z4FKlckyvv60/30/2025 7:25 AM EDT ALL CBC WITH AUTO GMUXOgwxqvh21/30/2025 7:25 AM EDT THINPREP IMAGING PAP W/REFL HPV MRNA E6/T8Fwvzuab54/15/2024 12:00 AM EDT Encounter for Papanicolaou smear of vagina POCT GLYCOSYLATED HEMOGLOBIN (HGB A1C)Ymdzmvc1606/10/2023 4:14 PM EDT Type 2 diabetes mellitus with stage 3a chronic kidney disease, without long-term current use of insulin (HCC) URINE T PROTEIN CREAT NZZJMNwsfnif50/24/2022 GZXSKEYRPTWXmtxunf13/27/2022 12:00 PM EDT from Last 3 Months or Most Recently Relevant to Health Maintenance Results * Bilateral screening mammogram with tomosynthesis (08/29/2025 8:50 AM EST) Anatomical RegionLateralityModalityBreastBilateralMammographySpecimen (Source) Anatomical Location / LateralityCollection Method / VolumeCollection Time Received Time08/29/2025 8:50 AM EST Impressions 08/29/2025 8:53 AM EST NO MAMMOGRAPHIC EVIDENCE OF MALIGNANCY. ? ROUTINE FOLLOW-UP IS RECOMMENDED IN ONE YEAR. ? RESULT CODE: 1 ? Negative ? DENSITY CODE: 2 (approximately 25-50% glandular) There are scattered areas of fibroglandular density. ? FOLLOW UP: 1YR ? The false-negative rate of mammography is approximately 10-percent. ? Management of a palpable abnormality must be based on clinical grounds. ? Patient was entered into a reminder system with a target due date for the next mammogram. ? Impression dictated by: Evan Messina Jr., D.OSon ??08/29/2025 8:51 AM ? Dictation Location: S01 ? Dictated By: ?Evan Messina Jr DO ? 08/29/25 0850 ? Signed By: <Electronically signed by Evan Messina Jr DO in OV> ?08/29/25 0851 Narrative 08/29/2025 8:53 AM EST ?[facility] ? [address] ? [place] [address] ?[phone] ? Mammography Report ? Signed ? Patient: Khushi,Patsy L ?MR#: [id number] ?? 15 ? : 1975 ?Acct:[id number] ? Age/Sex: 49 / F ?Adm Date: 11/22/25 ? Loc: [place] ?Room: ?Type: DEP CLI ?? Attending Dr: Referral Self ? Ordering Provider: SELF,REFERRAL ? Date of Service: 08/27/25 ? Procedure(s): MM screening mammo BI w/CAD ?? Accession Number(s): ([id number]) MM/MM screening mammo BI w/CAD: ROUTINE ? Copies to: Triston Wong MD ?? SELF,REFERRAL ?? Blake Hinojosa,DO ? CLINICAL DATA: ??Screening for malignancy. ? SCREENING MAMMOGRAM - FULL FIELD DIGITAL WITH TOMOSYNTHESIS AND CAD ? COMPARISON:Mammograms dating back to 2020 ? Tomosynthesis craniocaudal and mediolateral oblique views [...] screening mammo BI w/CAD ?? Procedure Note Evan Messina Jr., DO - 08/29/2025 [facility] [address] [place] [address] Mammography Report Signed Patient: Patsy Puri LMR#: [id number] 15 : 1975Acct:[id number] Age/Sex: 49 / FAdm Date: 08/27/25 Loc: [place] Room:Type: [facility] Attending Dr: Referral Self Ordering Provider: SELF,REFERRAL Date of Service: 08/27/25 Procedure(s): MM screening mammo BI w/CAD Accession Number(s): ([id number]) MM/MM screening mammo BI w/CAD: ROUTINE Copies to: Triston Wong MD SELF,REFERRAL Blake Hinojosa DO CLINICAL DATA: Screening for malignancy. SCREENING MAMMOGRAM - FULL FIELD DIGITAL WITH TOMOSYNTHESIS AND CAD COMPARISON:Mammograms dating back to 2020 Tomosynthesis craniocaudal and mediolateral oblique views of [...] Negative DENSITY CODE: 2 (approximately 25-50% glandular) There are scattered areasof fibroglandular density. FOLLOW UP: 1YR The false-negative rate of mammography is approximately 10-percent. Management of a palpable abnormality must be based on clinical grounds. Patient was entered into a reminder system with a target due date for thenext mammogram. Impression dictated by: Evan Messina Jr., D.O. 08/29/2025 8:51 AM Dictation Location: [facility] Dictated By: Evan Messina Jr, DO 08/29/25 0850 Signed By: <Electronically signed by Evan Messina Jr, DO inOV> 08/29/25 0851 Authorizing ProviderResult TypeResult StatusGeneric External Data ProviderIMG BI PROCEDURESFinal Result * TACROLIMUS (FK506), BLOOD (08/03/2025 7:15 AM EDT) Only the most recent of2 resultswithin the time period is included. ComponentValueRef RangeTest MethodAnalysis TimePerformed AtPathologist Signature TACROLIMUS (FK506), BLOOD5.55.0 - 20.0 ng/mLTBHComment: This test was developed and its performance characteristics determined by [employer]. It has not been cleared or approved [...] ng/mL Performed by LC-MS/MS technology. Performed at: ??[facility] Lab[address] ??[id number] Airfreight Operations Agent: Jose De Los Santos MD, Phone: ??[phone] Specimen (Source)Anatomical Location / LateralityCollection Method / Volume Collection TimeReceived Time08/03/2025 7:15 AM EDT1 7:16 AM EDT Narrative CLINISYNC - 08/07/2025 1:07 AM EDT Authorizing ProviderResult TypeResult StatusGeneric External Data ProviderLAB BLOOD ORDERABLESFinal ResultPerforming OrganizationAddressCity/State/ZIP Code Phone Number [facility] * METRO BILIRUBIN, DIRECT (08/03/2025 7:15 AM EDT) Only the most recent of2 resultswithin the time period is included. ComponentValueRef RangeTest MethodAnalysis TimePerformed AtPathologist Signature BILIRUBIN DIRECT0.10.0 - 0.2 mg/dLTBHSpecimen (Source)Anatomical Location / LateralityCollection Method / VolumeCollection TimeReceived Time10/ 7:15 AM EDT1 7:16 AM EDT Narrative CLINISYNC - 08/03/2025 8:12 AM EDT Authorizing ProviderResult TypeResult StatusGeneric External Data Provider CLINISYNCFinal ResultPerforming OrganizationAddressCity/State/ZIP CodePhone Number [facility] * (ABNORMAL) CCF CMP (CMP) (FOR REMOTE [facility] USE) (08/03/2025 7:15 AM EDT) Only the most recent of2 resultswithin the time period is included. ComponentValueRef RangeTest MethodAnalysis TimePerformed AtPathologist Signature JCUSAQ068269 - 145 mmol/LTBHPOTASSIUM3.2(L)3.5 - 5.1 mmol/BLBPVTWNBJAY87680 - 107 mmol/LTBHCARBON BGMMCAT94.221.0 - 32.0 mmol/LTBHANION GAP12.2RSQWDRZKIT942 (H)74 - 106 mg/dLTBHBLOOD UREA SDFGUCCC49.07.0 - 18.0 mg/dLTBHCREATININE1.16(H) 0.55 - 1.02 mg/dLTBHTBH EGFR-AF KAZAKH>60>=60 mL/min/1.73m 2TBHTBH EGFR-NON AF INLHBIFC88(L)>=60 mL/min/1.73m 2TBHBUN CREATININE RATIO8.5KEOXUAIGSZ1.48.5 - 10.1 mg/dLTBHBILIRUBIN TOTAL0.50.2 - 1.0 mg/dLTBHASPARTATE AMINO ONYUXNBYMXY1318 - 37 U/LTBHALANINE CFVISCVAPUCNXEND7896 - 59 U/LTBHALKALINE PLGCLCIILXD6693 - 116 U/LTBHTOTAL PROTEIN7.36.4 - 8.2 g/dLTBHALBUMIN LEVEL3.63.4 - 5.0 g/dLTBH GLOBULIN3.7g/dLTBHALBUMIN GLOBULIN RATIO1.0TBHSpecimen (Source)Anatomical Location / LateralityCollection Method / VolumeCollection TimeReceived Time 08/03/2025 7:15 AM EDT1 7:16 AM EDT Narrative CLINISYNC - 08/03/2025 8:12 AM EDT Authorizing ProviderResult TypeResult StatusGeneric External Data Provider CLINISYNCFinal ResultPerforming OrganizationAddEncompass Health [facility] Mechanicsburgty/State/ZIP CodePhone Number [facility] * ALL URIC ACID (08/03/2025 7:15 AM EDT) Only the most recent of2 resultswithin the time period is included. ComponentValueRef RangeTest MethodAnalysis TimePerformed AtPathologist Signature URIC ACID4.52.6 - 6.0 mg/dLTBHSpecimen (Source)Anatomical Location / Laterality Collection Method / VolumeCollection TimeReceived Time08/03/2025 7:15 AM EDT 08/03/2025 7:16 AM EDT Narrative CLINISYNC - 08/03/2025 8:12 AM EDT Authorizing ProviderResult TypeResult StatusGeneric External Data Provider CLINISYNCFinal ResultPerforming OrganizationAddEncompass Health [facility] of Mechanicsburgty/State/ZIP CodePhone Number [facility] * ALL PHOSPHOROUS (08/03/2025 7:15 AM EDT) Only the most recent of2 resultswithin the time period is included. ComponentValueRef RangeTest MethodAnalysis TimePerformed AtPathologist Signature PHOSPHORUS3.72.6 - 4.7 mg/dLTBHSpecimen (Source)Anatomical Location / Laterality Collection Method / VolumeCollection TimeReceived Time08/03/2025 7:15 AM EDT 08/03/2025 7:16 AM EDT Narrative CLINISYNC - 08/03/2025 8:12 AM EDT Authorizing ProviderResult TypeResult StatusGeneric External Data Provider CLINISYNCFinal ResultPerforming OrganizationAddEncompass Health [facility] of Mechanicsburgty/State/ZIP CodePhone Number [facility] * (ABNORMAL) ALL MAGNESIUM (08/03/2025 7:15 AM EDT) Only the most recent of2 resultswithin the time period is included. ComponentValueRef RangeTest MethodAnalysis TimePerformed AtPathologist Signature MAGNESIUM1.6(L)1.8 - 2.4 mg/dLTBHSpecimen (Source)Anatomical Location / LateralityCollection Method / VolumeCollection TimeReceived Time08/03/2025 7:15 AM EDT1 7:16 AM EDT Narrative CLINISYNC - 08/03/2025 8:12 AM EDT Authorizing ProviderResult TypeResult StatusGeneric External Data Provider CLINISYNCFinal ResultPerforming OrganizationAddressCity/State/ZIP CodePhone Number [facility] * (ABNORMAL) ALL CBC WITH AUTO DIFF (08/03/2025 7:15 AM EDT) Only the most recent of2 resultswithin the time period is included. ComponentValueRef RangeTest MethodAnalysis TimePerformed AtPathologist Signature TB WBC8.94.0 - 11.0 10 3/uLTBHTBH RBC4.474.20 - 5.40 10 6/uLTBHTBH HGB12.912.0 - 16.0 g/dLTBHTBH HCT39.136.0 - 48.0 %TBHTBH MCV87.581.0 - 99.0 fLTBHTBH MCH28.9 26.7 - 34.0 pgTBHTBH MCHC33.029.9 - 35.2 g/dLTBHTBH RDW13.811.0 - 15.0 %TBHTBH ZFP349775 - 450 10 3/uLTBHTBH MPV8.7(L)9.5 - 13.5 fLTBHNEUTROPHILS PERCENT AUTO 75.4(H)43.0 - 75.0 %TBHLYMPHOCYTES PERCENT AUTO15.4(L)20.5 - 60.0 %TBHMONOCYTES PERCENT AUTO5.41.7 - 12.0 %TBHTBH EO %2.70.9 - 7.0 %TBHBASOPHILS PERCENT AUTO0.4 0.2 - 2.0 %TBHIMMATURE GRANULOCYTES PCT AUTO0.7(H)0.0 - 0.5 %TBHNEUTROPHILS ABSOLUTE AUTO6.7(H)1.4 - 6.5 10 3/uLTBHLYMPHOCYTES ABSOLUTE AUTO1.41.2 - 3.8 10 3/uLTBHMONOCYTES ABSOLUTE AUTO0.50.3 - 0.8 10 3/uLTBHTBH EO #0.20.0 - 0.7 10 3/uLTBHBASOPHILS ABSOLUTE AUTO0.00.0 - 0.1 10 3/uLTBHIMMATURE GRANULOCYTES ABS AUTO0.06(H)0.00 - 0.03 10 3/uLTBHSpecimen (Source)Anatomical Location / LateralityCollection Method / VolumeCollection TimeReceived Time08/03/2025 7:15 AM EDT1 7:16 AM EDT Narrative CLINISYCA - 08/03/2025 7:40 AM EDT Authorizing ProviderResult TypeResult StatusGeneric External Data Provider CLINISYNCFinal ResultPerforming OrganizationAddressCity/State/ZIP CodePhone Number [facility] * BKV QUANT PCR (07/05/2025 7:25 AM EDT)ComponentValueRef RangeTest Method Analysis TimePerformed AtPathologist SignatureBKV DNA, QUANT PCR, PLASMA NegativeNegative IU/mLTBHComment: No BK DNA detected. The linear range of the assay is 22 - 100,000,000 IU/mL. Performed at: ?? - Lab[address] ??[id number] Airfreight Operations Agent: Gabriel Whitman PhD, Phone: ??[phone] [id number] BKV DNA,PLASMATNP.TBHSpecimen (Source)Anatomical Location / Laterality Collection Method / VolumeCollection TimeReceived Time07/05/2025 7:25 AM EDT 07/05/2025 7:38 AM EDT Narrative CLINISYCA - 07/06/2025 3:08 PM EDT Authorizing ProviderResult TypeResult StatusGeneric External Data ProviderLAB BLOOD ORDERABLESFinal ResultPerforming OrganizationAddressCity/State/ZIP Code Phone Number [facility] * MLR HEMOGLOBIN A1C (07/05/2025 7:25 AM EDT)ComponentValueRef RangeTest Method Analysis TimePerformed AtPathologist SignatureGLYCOHEMOGLOBIN A1C5.24.5 - 6.2 %TBHComment: ADA RECOMMENDED LIMIT 4.0 - 6.0 ADA THERAPEUTIC TARGET < 7.0 ACTION SUGGESTED > 7.0 ESTIMATED AVERAGE AEJOVNU356mq/dLTBHSpecimen (Source)Anatomical Location / LateralityCollection Method / VolumeCollection TimeReceived Time07/05/2025 7:25 AM EDT07/05/2025 7:38 AM EDT Narrative CLINISYCA - 07/05/2025 8:05 AM EDT Authorizing ProviderResult TypeResult StatusGeneric External Data Provider CLINISYNCFinal ResultPerforming OrganizationAddressCity/State/ZIP CodePhone Number [facility] * (ABNORMAL) ALL LIPID PROFILE (FASTING) (07/05/2025 7:25 AM EDT)ComponentValue Ref RangeTest MethodAnalysis TimePerformed AtPathologist Signature QNCYFOZMMNDBS911(H)<=150 mg/nULJJYDYUVCPQHGB501(H)<=200 mg/dLTBHHDL CIJVMUOVVGH4392 - 60 mg/dLTBHComment: > or =60 mg/dl - LOW CARDIOVASCULAR RISK <40 mg/dl - HIGH CARDIOVASCULAR RISK LDL CHOLESTEROL JTUXCOTBHU254.0mg/dLTBHComment: <100 mg/dl OPTIMAL 100-129 mg/dl NEAR OR ABOVE OPTIMAL 130-159 mg/dl BORDERLINE HIGH 160-189 mg/dl HIGH >190 mg/dl VERY HIGH VLDL PLINDLZQTOD00.0mg/dLTBHCHOL HDL RATIO3.9TBHComment: 3.3 - 4.4 ?? LOW RISK 4.4 - 7.1 ?? AVERAGE RISK 7.1 - 11.0 ??MODERATE RISK >11.0 HIGH RISK Specimen (Source)Anatomical Location / LateralityCollection Method / Volume Collection TimeReceived Time07/05/2025 7:25 AM EDT07/05/2025 7:38 AM EDT Narrative CLINISYNC - 07/05/2025 8:48 AM EDT Authorizing ProviderResult TypeResult StatusGeneric External Data Provider CLINISYNCFinal ResultPerforming OrganizationAddressCity/State/ZIP CodePhone Number [facility] * THINPREP IMAGING PAP W/REFL HPV MRNA E6/E7 (04/19/2024 12:00 AM EDT)Component ValueRef RangeTest MethodAnalysis TimePerformed AtPathologist Signature CLINICAL INFORMATIONQUESTComment:None givenLMPQUESTComment:BAM BS 2017PREV. PAPQUESTComment:NEGPREV. BXQUESTComment:None givenSOURCEQUESTComment:None givenSTATEMENT OF ADEQUACYQUESTComment:SATISFACTORY FOR EVALUATION INTERPRETATION/RESULTQUESTComment: Cytology Results: Negative for intraepithelial lesion or malignancy. COMMENTQUESTComment: This Pap test has been evaluated with computer assisted technology. CYTOTECHNOLOGISTQUESTComment: Reference Range: ZL, CT(ASCP) CT screening location: [facility], [address] [place] [address]. (ALWAYS MESSAGE)QUESTComment: EXPLANATORY NOTE: The Pap is [...] / Volume Collection TimeReceived TimeSwabVaginal structure / Dmnbrgs20/ 3:47 AM EDT Narrative Resulting Agency Comment Performing Organization Information ?Site ID: [id number] ?Name: [employer] [facility] ?Address: [address] [place] [address], [address] [place] [address] ?Director: Bran Flowers MD Authorizing ProviderResult TypeResult StatusBlake HUSAIN CYTOLOGY ORDERABLESFinal ResultPerforming OrganizationAddressCity/State/ZIP CodePhone Number [facility] * (ABNORMAL) POCT glycosylated hemoglobin (Hb A1C) docked device (06/10/2023 4:14 PM EDT)ComponentValueRef RangeTest MethodAnalysis TimePerformed At Pathologist SignatureHemoglobin A1C6.9Specimen (Source)Anatomical Location / LateralityCollection Method / VolumeCollection TimeReceived TimeBloodVenous blood specimen / Uyzcohk5806/10/2023 4:14 PM EDT Narrative Authorizing ProviderResult TypeResult StatusMing Triplett DOPOINT OF CARE TEST ENTER/EDIT ORDERABLESEdited Result - Final * (ABNORMAL) URINE T PROTEIN CREAT RATIO (07/29/2022)ComponentValueRef RangeTest MethodAnalysis TimePerformed AtPathologist SignaturePROTEIN, URINE29.7(HH) <=12.0[facility] LABURINE CREAT53.3520.00 - 300.00[facility] LABUR PROT CREAT RAT0.56[facility] EXTER[facility] LABPERFORMING LAB:see noteNOMS LEGACY EXTERNAL LABComment:[address] Laboratory - [address] [address] ,Ext. 6068 specimen (Source)Anatomical Location / LateralityCollection Method / VolumeCollection TimeReceived Time07/29/2022 Narrative Authorizing ProviderResult TypeResult StatusMing Ibarraman DOECW LABSFinal ResultPerforming OrganizationAddressCity/State/ZIP CodePhone Number [facility] * Colonoscopy (04/01/2022 12:00 PM EDT)Anatomical RegionLateralityModality EndoscopySpecimen (Source)Anatomical Location / LateralityCollection Method / VolumeCollection TimeReceived Time04/01/2022 12:00 PM EDT Narrative 04/01/2022 12:00 PM EDT PERFORMED AT [facility] LOCATION:[id number] diverticulosis Procedure Note CONVERSION, GENERIC - 02/19/2023 PERFORMED AT [facility] LOCATION:[id number] diverticulosis Authorizing ProviderResult TypeResult StatusMing Triplett DOENDOSCOPY PROCEDURE ORDERABLESFinal Result from Last 3 Months or Most Recently Relevant to Health Maintenance Insurance Care Teams Team MemberRelationshipSpecialtyStart DateEnd Date Ming Triplett DO [address] [place] [address] PCP - Medical [place] [employer]10/06/2211 Triston Wong MD [address] [place] [address] PCP - GeneralInternal Medicine05/24/25
--- OUTSIDE RECORDS SUMMARY | 2025-09-03 08:57 | XMS_ITS | Clinical Summary ---
Author Organization [facility] Address [address] [place] [address] Phone Care Team Providers Care Kitchen Aide Name Role Phone Ming Triplett DO Primary Care Provider + [phone] Social History Tobacco UseTypesPacks/DayYears UsedDateSmoking Tobacco: Never Assessed CommentsUnknownSex and Gender InformationValueDate RecordedSex Assigned at Not on fileLegal IukQdyqov36/25/2022 7:01 PM ESTGender IdentityNot on fileSexual OrientationNot on file Plan of Treatment Not on file Care Teams Team MemberRelationshipSpecialtyStart DateEnd Date Ming Triplett DO [address] [place] [address] PCP - General01/06/19
--- OUTSIDE RECORDS SUMMARY | 2025-09-03 08:57 | XMS_ITS | Clinical Summary ---
Author Organization [facility] Address [address] [place] [address], [address] [place] [address] Care Team Providers Care Car Shunter Name Role Phone Ming Triplett Kary NAVA Primary Care Provider + [phone] Allergies Active AllergyReactionsCriticalityNoted TdjtMycgnjyhZqnwkehtcro79/28/2019 Medications MedicationSigDispense QuantityRefillsLast FilledStart DateEnd DateStatus LISINOPRIL PO Take by mouthActive DULoxetine HCl (CYMBALTA PO) Take by mouthActive Social History Tobacco UseTypesPacks/DayYears UsedDateSmoking Tobacco: Never Assessed CommentsUnknownSex and Gender InformationValueDate RecordedSex Assigned at Not on fileLegal IajDvnkfs50/10/2013 3:34 PM ESTGender IdentityNot on fileSexual OrientationNot on file Last Filed Vital Signs Vital SignReadingTime TakenCommentsBlood Pnmgnbcu18/5610 4:16 PM EDT Etlnn61107/28/2019 4:27 PM KOMZctinlxrgra30.4 ??C (99.3 ??F)08/02/2019 4:35 PM EDTRespiratory Rsso6723 4:27 PM EDTOxygen Eqerwauiyu73%08/02/2019 4:27 PM EDTInhaled Oxygen Concentration--Oxkbpz39.7 kg (200 lb)08/02/2019 2:59 PM EDT Vtalfu414.9 cm (5' 1 )08/02/2019 2:59 PM EDTBody Mass Index37.7908/02/2019 2:59 PM EDT Plan of Treatment Not on file Insurance [address] [place] [address] Care Teams Team MemberRelationshipSpecialtyStart DateEnd Date Ming Triplett DO [address] [place] [address] PCP - GeneralInternal Qbvtnsyo52/28/19
--- OUTSIDE RECORDS SUMMARY | 2025-09-03 08:57 | XMS_ITS | Clinical Summary ---
Author Organization [facility] [place] [facility] Address [address] [place] [address] Care Team Providers Care Strings Teacher Name Role Phone Sita Camp Unavailable Ming Triplett MD Primary Care Provider [phone] Patrick Sam MD Unavailable Nelson Davies MD Unavailable Romero Zamarripa CNP Unavailable [phone] Allergies Active AllergyReactionsCriticalityNoted YaujHectidodRdbamnewkow78/26/2022 EnsvcvhayuoLawle52/15/2022Venlafaxine Hcl07/10/2021 Other reaction(s): bad side effect Medications [...] Do not crush or chew. 180 tablet /822137/6Active magnesium oxide (Mag-Ox) 400 mg (241.3 mg magnesium) tablet Indications:History of kidney transplantTake 2 tablets (800 mg) by mouth two times daily. 360 tablet 5Active pravastatin (Pravachol) 40 mg tablet Indications:Encounter for aftercare following kidney transplantTAKE 1 TABLET BY MOUTH EVERYDAY AT BEDTIME 90 tablet 3095Active Active Problems ProblemNoted DateDiagnosed OovpAaelcevcgwupy65/01/2023 Myopathy, unspecified 12/25/20224662Ewngvkycvcsc74/22/2023Electrolyte duavgdtmy18/26/2023History of gout 12/01/2022Immunosuppressive management encounter following kidney transplant 1287Plwtska95/18/3114Zehwtfxccwoucg60/18/2023Immunosuppressed status 10/01/20220850Qfvjzyqfomuqi26/27/2022Metabolic ijmvpfeq29/27/2022ilateral lower extremity edema10/01/20227224Hzmywjrxosg95/27/2022Encounter for aftercare following kidney /16/3985Iieroyx08/26/2022epressive /26/2022 Gastroesophageal reflux dbtbbyh8707/01/2022Gout07/01/2022rimary hypertension 07/01/2022Multiple congenital cysts of xsrzxp2807/01/2022tage 4 chronic kidney xipvmdl0907/01/2022OVID-19005/17/2020 Encounters DateTypeDepartmentCare EnzbIsfrdnptyly84/30/2025Refill [facility] Transplant [address] [place] [phone] Priyanka Villanueva MD Encounter for aftercare following kidney transplantfrom Last 3 Months Family History Medical HistoryRelationNameCommentsHypertensionBrotherPolycystic kidney disease BrotherHeart diseaseFatherFibromyalgiaMotherHypertensionSisterPolycystic kidney diseaseSisterRelationNameStatusCommentsBrotherFatherDeceasedMotherAliveSister Social History Tobacco UseTypesPacks/DayYears UsedDateSmoking Tobacco: NeverPassive Smoke Exposure: NeverSmokeless Tobacco: Never Tobacco Cessation:Counseling Given: Not Answered Alcohol UseStandard Drinks/WeekCommentsNot Currently0 (1 standard drink = 0.6 oz pure alcohol)2-3 a year , winePHQ-2AnswerDate RecordedPatient Health Questionnaire-2 Cpmxa463UT Safety & EnvironmentAnswerDate RecordedFear of Current or Ex-PartnerNot on file11/27/2023Emotionally AbusedNot on file 11/27/2023hysically AbusedNot on file11/27/2023Sexually AbusedNot on file 11/27/2023hysically or Sexually AbusedNot on file11/27/2023CommentsNo Sex and Gender InformationValueDate RecordedSex Assigned at BirthFemale 07/13/2022 9:44 AM EDTLegal XxqYoiwfk95/30/2022 12:44 AM EDTGender Identity Tcbhno7407/13/2022 9:44 AM EDTSexual OrientationChoose not to oncvmfsy26/08/2022 9:44 AM EDT Last Filed Vital Signs Vital SignReadingTime TakenCommentsBlood Rvhexhqu427/8008/ 4:15 PM EDT Edslp1944 4:15 PM TUBQntruwoiksb21.2 ??C (99 ??F)06/01/2025 4:15 PM EDT Respiratory Mtck4479 4:15 PM EDTOxygen Esulwrxhfq70%06/01/2025 4:15 PM EDTInhaled Oxygen Concentration--Ospvwm31.5 kg (184 lb)06/01/2025 4:15 PM EDT Mcgbpi557.5 cm (5' 2 )06/01/2025 4:15 PM EDTBody Mass Index33.6508 4:15 PM EDT Plan of Treatment DateTypeDepartmentCare Team (Latest Contact Info)Payukyououo85/25/2026 8:00 AM ESTFollow-Up [facility] [address] [place] [phone] Aguila Parrish MD [address] [place] [phone] 12/07/2025 2:00 PM ESTFollow-Up [facility] [address] [facility] [place] [phone] Ty Concepcion, [employer] [address] [place], [place] [id number] Health MaintenanceDue DateLast DoneCommentsCT Rhapwqojxjra59/15/1976FIT-DNA 1975FIT1975FOBT1975 3083Jnmgburksvrlu82/15/1976Diabetes: Retinopathy Hmqczqwia82/15/1986Diabetes: Urine Protein Eodbdazcl80/15/1995 Hepatitis B Vaccines (1 of 3 - 19+ 3-dose series)1994Zoster Vaccines (1 of 2)1994Pap Smear1996Adult Ehbozfw6211/20/1997Cervical Cancer Screening 2005HPV/Eedfyv5811/20/2005Pneumococcal Vaccine: Pediatrics (0 to 5 Years) and At-Risk Patients (6 to 64 Years) (2 of 2 - PCV)COVID-19 Vaccine (2 - Ainsley risk series)/2Diabetes: Hemoglobin A1C /, 08/26/2023, 02/24/2023, Additional history existsInfluenza Vaccine (#1)512/, 10/26/2023, 10/19/2023, Additional history existsDepression Kukhgwccg74/0839Dlhgoiijn24/20/202611/, 4453Qicnzkhrtpx24olorectal Cancer Lkjgzrcyt64/27/2032 HIB VaccinesAged OutNo longer eligible based on [...] Expiration DateModel / Serial / LotStent,Ureteral,Polarultra,5x12 - [id number] Implanted:Qty: 1 on 09/20/2022 by Aguila Parrish MD at [facility] Explanted:10/15/2022 (Quantity not on file)StentN/A: UreterBoston Scientific [id number] / / [id number]:Transplant ureter Procedures Procedure NamePriorityDate/TimeAssociated DiagnosisCommentsEXT TACROLIMUS LEVEL Sffaxcm9408/03/2025 7:16 AM EDT HEMOGLOBIN T4WHufgpxg47/19/2024 7:57 AM EDT Impaired fasting glucose from Last 3 Months or Most Recently Relevant to Health Maintenance Results * External Tacrolimus level (08/03/2025 7:16 AM EDT)ComponentValueRef RangeTest MethodAnalysis TimePerformed AtPathologist SignatureExternal Tacrolimus level 5.5ng/mLSpecimen (Source)Anatomical Location / LateralityCollection Method / VolumeCollection TimeReceived TimeBloodVenous blood specimen / Unknown 08/03/2025 7:16 AM EDT Narrative Authorizing ProviderResult TypeResult StatusHistorical Provider [facility] EXTERNAL ORDERSFinal Result * Hemoglobin A1c (04/23/2024 7:57 AM EDT)ComponentValueRef RangeTest Method Analysis TimePerformed AtPathologist SignatureHemoglobin A1C5.34.0 - 6.0 % 04/23/2024 12:23 PM [facility] ([facility])Estimated Average Lmyywcc959 mg/dL04/23/2024 12:23 PM [facility] ([facility])Specimen (Source) Anatomical Location / LateralityCollection Method / VolumeCollection Time Received TimeBloodVenous blood specimen / UnknownVenipuncture / Unknown 04/23/2024 7:57 AM EDT04/23/2024 7:57 AM EDT Narrative Authorizing ProviderResult TypeResult StatusTori AYALA BLOOD ORDERABLES Final ResultPerforming OrganizationAddressCity/State/ZIP CodePhone Number [facility] [address] [place] [address] from Last 3 Months or Most Recently Relevant to Health Maintenance Insurance * Guarantor: Malina Julio TypeRelation to PatientDate of BirthPhone Billing AddressPersonal/VktkrzMfwi48/[birth year][address] [address] * Guarantor: Malina Julio TypeRelation to PatientDate of BirthPhone Billing AddressTransplant DuvpacvveIsit54/15/[address] [phone] Advance Directives * Full Code (Latest Code Status on File) Date ActivatedDate XzqiwifydrlEjijmevm01/16/2022 4:39 AM09/23/2022 5:38 PM * Full Code Date ActivatedDate IicioyrbxeuDjheslwx53/15/2022 7:04 PM09/20/2022 4:39 AM * Full Code Date ActivatedDate UcgmxsionktWbahilri62/15/2022 6:18 PM09/19/2022 6:49 PM Care Teams Team MemberRelationshipSpecialtyStart DateEnd Date Ming Triplett MD [address] PCP - Jlqnxii98/8/22 Yaneth Camp MD [address] [place] [address] Referring Mxfypljhm18/3/22 Patrick Sam MD [facility] [facility] [address] [address] Consulting DmipzhldzRtdnlja41/10/22 Nelson Davies MD [facility] [place] [address] Consulting EfyhkuzryUpvwvqg60/7/22 Romero Zamarripa CNP [address] [place] [address] Nurse PractitionerUrology12/23/23
--- OUTSIDE RECORDS SUMMARY | 2025-09-03 08:57 | XMS_ITS | CCD ---
Author Organization [facility] Care Team Providers Care Inspector Type Name Role Phone Ming Espinoza Primary Care Provider [phone] VIDAL MADRIGAL Attending Unavailable MING ESPINOZA Primary Care Unavailable Toni, Yaneth Unavailable Shabbir Jones Unavailable Dipika Stinson Unavailable Jesus Parham Unavailable DO Ming Espinoza Primary Care Provider [phone] MD Shabbir Jones Attending Provider [phone] MD Yaneth Muñoz Attending Provider MD Jesus Parham Attending Provider [phone] Estefania Vo Unavailable DO Ming Espinoza Primary Care Provider [phone] EB Forman Emergency Provider DO Blake Hinojosa [...] DR MICAELA BRINDA Admitting Unavailable ALEXIS, DR LAI Primary Care Unavailable MICAELA, DR PARRY Attending Unavailable MICAELA, DR PARRY Consulting Unavailable MICAELA, DR MORALES Attending Unavailable MICAELA, DR MORALES Admitting Unavailable ALEXIS, DR LAI Primary Care Unavailable ALEXIS, DR LAI Primary Care Unavailable MISC, DR ZARAGOZA Admitting Unavailable MISC, DR ZARAGOZA Attending Unavailable MISC, DR ZARAGOZA Consulting Unavailable TONI, YANETH Admitting Unavailable ALEXIS, DR LAI Primary Care Unavailable TONI, YANETH Attending Unavailable TONI, YANETH Consulting Unavailable DO Alexis Ming Primary Care Provider MD Perri Ceja Attending Provider [phone] CECILIA Edwards Attending Provider Ming Espinoza DO Unavailable [phone] Ming Espinoza DO Primary Care Provider [phone] DO Ming Espinoza Primary Care Provider [phone] MD Jesus Ayala Attending Provider [phone] DO Blake Hinojosa Referring Provider Ming Espinoza DO Primary Care Provider [phone] Jesus Ayala MD Attending Provider [phone] Blake Hinojosa DO Referring Provider Blake Hinojosa DO Attending Provider Leon Monterroso MD Attending Provider Perri Wong MD Primary Care Provider [phone] Alan Stein DO Emergency Provider Perri Wong MD Primary Care Provider MING [...] Monterroso Attending Unavailable Leon Monterroso Admitting Unavailable LEO BATRES Attending Unavailable LEO BATRES Attending Unavailable Allergies Allergy ClassificationReported Allergen(s)Allergy TypeDate of OnsetReaction(s) Facility (20 sources)Allopurinol; Translations: [ALLOPURINOL]Drug Ebikzzn11-38-6149ebzqfIm[place] (20 sources)venlafaxine; Translations: [venlafaxine]Drug Nrmqmvm98-59-7340[facility] ([facility])venlafaxine; Translations: [VENLAFAXINE HCL]Drug Rzwqbuz35-46-5458 [facility] (1 source)AllopurinolDrug Yxwswvj99-44-0644YslmqjntbAdena [facility] Medications Current Medications MedicationDrug Class(es)DatesSig (Normalized)Sig (Original)amLODIPine 10 mg oral tablet (20 sources)Dihydropyridine Calcium Channel BlockerStart: 60-10-3781urpn 1 tablet by mouth once daily in the morningamLODIPine (Norvasc) 10 MG tablet Indications: Essential hypertension TAKE 1 TABLET BY MOUTH EVERY DAY IN THE MORNING 90 tablet 3 07/05/2025 ActiveStart: 08-21-2023 End: 79-12-8461nqma 1 tablet by mouth at bedtimeamLODIPine (Norvasc) 10 MG tablet Indications: Essential hypertension Take 1 tablet (10 mg) by mouth at bedtime 05/27/2025 Activeamoxicillin 875 mg / clavulanate 125 mg oral tablet (8 sources)Penicillin-class AntibacterialStart: 07-27-2024 End: 77-76-6293qxxu 1 tablet by mouth in the morningamoxicillin-clavulanate [...] Apr, Activeascorbic acid 500 mg oral capsule (5 sources)Vitamin CStart: 56-97-0697abjr 1 capsule by mouth every other day Ascorbic Acid (Vitamin C) 500 MG capsule Indications: Iron deficiency anemia, unspecified iron deficiency anemia type Take 500 mg by mouth every other day 05/27/2025 Active{1 (ascorbic acid 7540 MG / polyethylene glycol 3350 27734 MG / potassium chloride 1200 MG / sodiumascorbate 00107 MG / sodium chloride 3200 MG Powder for Oral Solution) / 1 (polyethylene glycol 3350 349182 MG / potassium chloride 1000 MG / sodium chloride 2000 MG / sodium sulfate 9000 MG Powder for Oral Solution) } Pack [Plenvu] (1 source)Osmotic Laxative, Vitamin CStart: 30-34-8000Ktueti 140 GM dose 1 pouch at 4pm, dose 2 pouch A & B at 11pm Orally twice a day for 1 days BIN:[id number] PCN: [id number] GROUP:[id number] ID:[id number] February, Activecephalexin 500 mg oral capsule (20 sources)Cephalosporin AntibacterialStart: 03-22-2024 End: 30-77-9527kmrz 1 capsule by mouth twice dailyStart: 04-01-2022 End: 38-55-0886hubl 1 capsule by mouth four times dailyCephalexin 500 mg Capsule Discontinued 500 MG PO Four times daily April 01, 2022 12:00am June 05, 2022 9:02amStart: 08-05-2019 End: 70-69-1611ulxs 1 capsule by mouth twice dailyCephalexin (Keflex) 500 mg capsule Discontinued 500 MG PO Twice daily 24 August 05, 2019 12:00am May 21, 2020 9:38pmStart: 01-20-2019 End: 84-85-9083cvna 1 capsule by mouth every eight hoursCephalexin (Keflex) 500 mg capsule Discontinued 500 MG PO Q8H 15 5 January 20, 2019 12:00am 2018 5:51pmcetirizine hydrochloride 10 mg oral tablet (14 sources)Histamine-1 Receptor AntagonistStart: 00-96-4241fedw 1 tablet by mouth once daily as neededtake 1 tablet by mouth once daily as neededZyrTEC Allergy 10 MG 1 tablet as needed Orally Once a day ActiveDULoxetine 60 mg delayed release oral capsule (20 sources)Serotonin and Norepinephrine Reuptake InhibitorStart: 01-19-2019 End: 73-34-3439vfsl 1 capsule by mouth once daily in the morning End: 11-76-9836VWCgooohig (Cymbalta) [address] capsule Take 30 mg by mouth in the morning and 30 mg before bedtime.Take with 60 MG tablet. 05/27/2025 Discontinued (Therapy completed)DULoxetine HCl (CYMBALTA PO) Take by mouth 0 Activefamotidine 20 mg oral tablet (5 sources)Histamine-2 Receptor Antagonisttake 1 tablet by mouth once daily famotidine (Pepcid) 20 MG tablet Take 20 mg by mouth Daily Activeferrous sulfate 325 mg oral tablet (20 sources)Start: 84-42-3753hbql 1 tablet by mouth once dailyStart: 04-01-2022 End: 30-28-1994lwjr 1 tablet by mouth every other dayFerrous Sulfate 27 mg iron Tablet Discontinued 27 MG PO Q2D April 01, 2022 12:00am March 1545:30pm Start: 75-70-9851zzfy 1 tablet by mouth every other dayferrous sulfate 325 (65 Fe) MG tablet Take 1 tablet by mouth every other day. 07/10/2021 ActiveStart: 08-05-2019 End: 37-18-4549flbv 1 tablet by mouth twice dailyFerrous Sulfate 324 mg (65 mg iron) Tablet,Delayed Release (Dr/Ec) Discontinued 324 MG PO Twice daily 60 30 August 05, 2019 12:00am April 01, 2022 7:05amStart: 01-20-2019 End: 55-02-0556ivco 1 tablet by mouth twice dailyFerrous Sulfate 324 mg (65 mg iron) Tablet,Delayed Release (Dr/Ec) Discontinued 324 MG PO Twice daily 60 January 20, 2019 12:00am August 02, 2019 5:52pmfluconazole 150 mg oral tablet (2 sources)Azole AntifungalStart: 07-27-2024 End: 93-50-8750xjcjqxhelcr (Diflucan) 150 MG tablet Indications: Side effect [...] unt/ml pen injector (13 sources)Insulin Analog End: 24-16-8077Qmpkdnk FlexPen 100 UNIT/ML pen Inject 12 Units under the skin in the morning. 10/01/2024 DiscontinuedIron (9 sources)take 1 tablet by mouth every other dayIron (Ferrous Sulfate) 325 (65 Fe) MG 1 tablet Orally every other day Activemagnesium oxide 400 mg oral tablet (20 sources)Start: 03-31-2024 End: 96-64-6955bboa 2 tablets by mouth in the morningmagnesium oxide (Mag-Ox) 400 MG tablet TAKE 2 TABLETS BY MOUTH IN THE MORNING AND 2 TABLETS AT BEDTIME 03/31/2024 08/02/2024 Discontinued (Duplicate order)Start: 77-21-9463atrt 2 tablets by mouth in the morningmagnesium oxide (Mag-Ox) 400 (240 Mg) MG tablet TAKE 2 TABLETS BY MOUTH IN THE MORNING AND 2 TABLETS AT BEDTIME 06/22/2024 Activemethenamine hippurate 1000 mg oral tablet (18 sources) End: 18-00-7801ecyj 1 tablet by mouth twice dailymethenamine hippurate (Hiprex) 1 g tablet TAKE 1 TABLET (1 G) BY MOUTH TWO TIMES DAILY. 04/11/2025 Discontinued (Therapy completed)Multivitamin (Multiple Vitamins) tablet (5 sources)Start: 32-08-4240xuxv 1 tablet by mouth once dailyStart: 03-15-2024 take 1 tablet by mouth once dailyMultivitamin (Multiple Vitamins) tablet Active 1 TAB PO Daily March 14, 2024 11:00pmStart: 56-57-4466mipd 1 tablet by mouth once dailyMultivitamin (Multiple Vitamins) tablet Active 1 TAB PO Daily March 15, 2024 12:00amMultivitamin preparation (9 sources)take 1 tablet by mouth once dailyMulti Vitamin - 1 tablet Orally Once a day ActiveMYCOPHENOLATE (2 sources)Start: 62-19-5561litj 180 mg by mouth once dailyMycophenolate Sodium Active 180 MG PO Daily March 15, 2024 12:00amMycophenolate Sodium 180 mg tablet,delayed release (DR/EC) (2 sources)Start: 83-82-9994txgr 1 tablet by mouth once dailyMycophenolate Sodium 180 mg tablet,delayed release (DR/EC) Active 180 MG PO Daily March 14, 2024 11:00pmmycophenolic acid 180 mg delayed release oral tablet (20 sources)Antimetabolite ImmunosuppressantStart: 92-57-4990hrjr 1 tablet by mouth once dailytake 4 tablets by mouth in the morningmycophenolate (Myfortic) 180 MG EC tablet Take 4 tablets by mouth in the morning and 4 tablets before bedtime. Activemicroencapsulated potassium chloride 20 meq extended release oral tablet (20 sources)Start: 05-46-7191Ovbgcziaf Chloride (Klor-Con M20) 20 mEq tablet,ER particles/crystals (4 sources)Start: 54-76-7146Oifufthkg Chloride (Klor-Con M20) 20 mEq tablet,ER particles/crystals Active 20 MEQ PO Daily March 14, 2024 11:00pmStart: 14-78-9277Udmwoiijz Chloride (Klor-Con M20) 20 mEq tablet,ER particles/crystals Active 20 MEQ PO Daily March 15, 2024 12:00ampravastatin sodium 40 mg oral tablet (20 sources)HMG-CoA Reductase InhibitorStart: 87-51-5401njrb 1 tablet by mouth once dailySemaglutide (1 source)Start: 10-44-3204Nefadvrdfhf (Ozempic) 2 mg/dose (8 mg/3 mL) pen injector (4 sources)Start: 29-93-8351Jxkjgxapmae (Ozempic) 2 mg/dose (8 mg/3 mL) pen injector Active MG SUBCUT March 14, 2024 11:00pmStart: 18-75-7705Yrwucqltpzj (Ozempic) 2 mg/dose (8 mg/3 mL) pen injector Active MG SUBCUT March 15, 2024 12:00amsemaglutide (Ozempic) 4 MG/3ML solution pen-injector (2 sources)Start: 72-30-3115hqwpsu 1 mg by subcutaneous injection every week semaglutide (Ozempic) 4 MG/3ML solution pen-injector Indications: Type 2 diabetes mellitus with other specified complication, without long-term current use of insulin (CMS/HCC) Inject 1 mg under the skin 1 (one) time per week 3 mL 03/23/2024 ActiveSemaglutide, 2 MG/DOSE, (Ozempic, 2 MG/DOSE,) 8 MG/3ML solution pen-injector (11 sources)Start: 48-84-4772vniycv 2 mg by subcutaneous injection every week Semaglutide, 2 MG/DOSE, (Ozempic, 2 MG/DOSE,) 8 MG/3ML solution pen-injector Indications: Type 2 diabetes mellitus with stage 3a chronic kidney disease, without long-term current use of insulin (HCC)INJECT 2 MG SUBCUTANEOUSLY WEEKLY 9 mL 3 07/27/2025 ActiveStart: 47-56-3099vvgkmf 2 mg by subcutaneous injection every weekSemaglutide, 2 MG/DOSE, (Ozempic, 2 MG/DOSE,) 8 MG/3ML solution pen- injector Indications: Type 2 diabetes mellitus with stage 3a chronic kidney disease, without long-term current use of insulin (HCC)Inject 2 mg under the skin 1 (one) time per week 12 mL 1 01/03/2025 ActiveStart: 72-38-2046zvaklp 2 mg by subcutaneous injection every weekSemaglutide, 2 MG/DOSE, (Ozempic, 2 MG/DOSE,) 8 MG/3ML solution pen-injector Indications: Type 2 diabetes mellitus with stage 3a chronic kidney disease, without long-term current use of insulin (HCC)(CMS/[facility]) Inject 2 mg under the skin 1 (one) time per week 12 mL 1 01/03/2025 Active3 ml sodium chloride 9 mg/ml injection (4 sources)Start: 54-52-6095qyilvr chloride flush 0.9 % injection 10 mLStart: 20-56-1614mqqnlv chloride flush 0.9 % injection 10 mLStart: 08-02-2019 End: 08-02-20190.9 % sodium chloride bolussulfamethoxazole 800 mg / trimethoprim 160 mg oral tablet (5 sources)Dihydrofolate Reductase Inhibitor Antibacterial, Sulfonamide AntimicrobialStart: 51-61-0863iqrp 1 tablet by mouth twice daily24 hr tacrolimus 0.75 mg extended release oral tablet (20 sources)Calcineurin Inhibitor ImmunosuppressantStart: 44-60-1659Tfqnxisf XR 0.75 MG tablet ER 09/06/2024 ActiveStart: 03-15-2024 End: 04-11-2025 Completed/Discontinued Medications MedicationDrug Class(es)DatesSig (Normalized)Sig (Original)acetaminophen 500 mg oral tablet (11 sources)Start: 08-02-2019 End: 33-90-8601uiybxwngdtmta (TYLENOL) tablet 1,000 mgStart: 52-88-2462iulq 2 tablets by mouth once daily as needed for paincalcitriol 0.91515 mg oral capsule (10 sources)Vitamin D3 AnalogStart: 01-20-2019 End: 00-87-9949Nppxvcaqkv (Rocaltrol) 0.25 mcg Capsule Discontinued 0.25 MCG PO MoWeFr@0900 January 20, 2019 12:00am August 02, 2019 5:53pmcalcium carbonate 500 mg chewable tablet (10 sources)Start: 01-19-2019 End: 08-30-1963aljz 1 tablet by mouth four times daily as needed for gastroesophageal reflux diseaseCalcium Carbonate (Tums) 200 mg calcium (500 mg) Tablet,Chewable Discontinued 200 MG PO Four times daily as needed for Heartburn January 19, 2019 12:00am August 02, 2019 5:51pmcefTRIAXone (ROCEPHIN) 1 g in sterile water 10 mL IV syringe (1 source)Start: 08-02-2019 End: 47-35-8740xoaTCWTOlij (ROCEPHIN) 1 g in sterile water 10 mL IV syringe ciprofloxacin 250 mg oral tablet (13 sources)Quinolone AntimicrobialStart: 11-05-2024 End: 84-97-0137wfnq 1 tablet by mouth in the morningciprofloxacin (Cipro) 250 MG tablet Take 250 mg by mouth in the morning and 250 mg before bedtime. 0 11/05/2024 01/03/2025 Discontinued (Therapy completed)Start: 05-15-2020 End: 24-37-6509tzcl 1 tablet by mouth every twelve hoursCiprofloxacin Hcl (Cipro) 250 mg tablet Discontinued 250 MG PO Q12H 6 3 May 15, 2020 12:00am April 01, 2022 7:03amergocalciferol 1.25 mg oral capsule (10 sources)Provitamin D2 CompoundStart: 01-20-2019 End: 07-64-1980rjpr 1 capsule by mouth every monthErgocalciferol (Vitamin D2) 50,000 unit capsule Discontinued 82297 UNIT PO every month January 20, 2019 12:00am August 02, 2019 5:53pmfebuxostat 40 mg oral tablet (19 sources)Xanthine Oxidase InhibitorStart: 08-02-2019 End: 55-01-3816Wxatrvsgcw (Uloric) 40 mg Tablet Discontinued 20 MG PO Every morning August 02, 2019 12:00am March 15, 2024 5:37pmtake 0.5 tablet by mouth once dailyUloric 40 MG 1/2 tablet Orally Once a day Active hydroCHLOROthiazide 12.5 mg / lisinopril 20 mg oral tablet (10 sources)Thiazide Diuretic, Angiotensin Converting Enzyme InhibitorStart: 01-19-2019 End: 07-20-9833zweh 1 tablet by mouth once dailyLisinopril-Hydrochlorothiazide 20-12.5 mg tablet Discontinued 1 TAB PO Daily January 19, 2019 12:00am August 05, 2019 4:31pmIopamidol (1 source)Radiographic Contrast AgentStart: 08-02-2019 End: 48-32-3797kuddrtbyr (ISOVUE-370) 76 % injection 100 mLlisinopril 20 mg oral tablet (20 sources)Angiotensin Converting Enzyme InhibitorStart: 08-05-2019 End: 95-10-7606riix 1 tablet by mouth once daily in the morningLisinopril 20 mg tablet Discontinued 20 MG PO Every morning June 05, 2022 9:09am March 15, 2024 5:37pmLISINOPRIL PO Take by mouth 0 Activesemaglutide (Ozempic, 1 MG/DOSE,) 4 MG/3ML solution pen-injector (20 sources)Start: 11-01-2024 End: 55-76-8211cjxmtq 1 mg by subcutaneous injection every weeksemaglutide (Ozempic, 1 MG/DOSE,) 4 MG/3ML solution pen-injector Indications: Type 2 diabetes mellitus with other specified complication, without long-term current use of insulin (HCC) INJECT 1 MG UNDER THE SKIN 1 (ONE) TIME PER WEEK 9 mL 3 11/01/2024 05/27/2025 Discontinued (Therapy completed)Start: 95-35-5660evtzqp 1 mg by subcutaneous injection every weeksemaglutide (Ozempic, 1 MG/DOSE,) 4 MG/3ML solution pen-injector Indications: Type 2 diabetes mellitus with other specified complication, without long-term current use of insulin (HCC) INJECT 1 MG UNDER THE SKIN 1 (ONE) TIME PER WEEK 9 mL 3 11/01/2024 ActiveStart: 43-72-9084jdtlvw 1 mg by subcutaneous injection every weeksemaglutide (Ozempic, 1 MG/DOSE,) 4 MG/3ML solution pen-injector Indications: Type 2 diabetes mellitus with other specified complication, without long-term current use of insulin INJECT 1 MG UNDER THE SKIN 1 (ONE) TIME PER WEEK 9 mL 3 11/01/2024 ActiveStart: 50-00-2176tdaqxf 1 mg by subcutaneous injection every weeksemaglutide (Ozempic, 1 MG/DOSE,) 4 MG/3ML solution pen-injector Indications: Type 2 diabetes mellitus with other specified complication, without long-term current use of insulin (CMS/HCC) INJECT 1 MG UNDER THE SKIN 1 (ONE) TIME PER WEEK 9 mL 3 11/01/2024 ActiveStart: 35-53-5814gberlf 1 mg by subcutaneous injection every week semaglutide (Ozempic, 1 MG/DOSE,) 4 MG/3ML solution pen-injector Indications: Type 2 diabetes mellitus with other specified complication, without long-term current use of insulin (CMS/HCC) INJECT 1 MG UNDER THE SKIN 1 (ONE) TIME PER WEEK 3 mL 3 06/29/2024 Activesodium bicarbonate 650 mg oral tablet (19 sources)Start: 04-01-2022 End: 86-36-4096supd 1 tablet by mouth twice dailySodium Bicarbonate 650 mg Tablet Discontinued 650 MG PO Twice daily April 01, 2022 12:00am March 15, 2024 5:37pmtiZANidine 4 mg oral tablet (20 sources)Central alpha-2 Adrenergic AgonistStart: 08-31-2024 End: 00-01-6707tpti 1 tablet by mouth at bedtimetiZANidine (Zanaflex) 4 MG tablet Take 4 mg by mouth at bedtime 08/31/2024 05/27/2025 Discontinued (Therapy completed) End: 00-69-6243xuNIWvfoar HCl (ZANAFLEX PO) Take by mouth 09/14/2024 DiscontinuedtiZANidine HCl (ZANAFLEX PO) Take by mouth Active Problems Active Problems Problem ClassificationProblemDateDocumented DateEpisodic/ChronicAbdominal pain (3 sources)Generalized abdominal pain; Translations: [Generalized abdominal pain]Onset: 782568-62-4819QdwcvjwdLcosa and chronic tonsillitis (20 sources)Amygdalolith; Translations: [Other chronic diseases of tonsils and adenoids]Onset: 571667-32-5514MbzabcwJpspj and unspecified renal failure (1 source)Chronic renal failure; Translations: [Chronic renal failure, stage 4 (severe) ([facility])]ChronicAcute and unspecified renal failure (10 sources)Injury of kidney; Translations: [Acute kidney failure, unspecified] 49-27-1915FqdbmtnrYvhbymy disorders (20 sources)Anxiety; Translations: [Anxiety disorder, unspecified]Onset: 136594-46-9407BuxdzuaOtqtqmb kidney disease (20 sources)Chronic kidney disease stage 4; Translations: [Chronic kidney disease, stage 4 (severe)]Onset: 12-05-2021 Resolved: 33-65-5305ReqdkweGcwqwjcfenvhg of surgical procedures or medical care (2 sources)Drug therapy finding; Translations: [Unspecified adverse effect of drug or medicament, initial encounter]66-53-5258ExxzikspXevunvszay and other anemia (20 sources)Anemia of renal disease; Translations: [Anemia in chronic kidney disease]Onset: 279700-87-0045GzzjcttFvfsreoipf and other anemia (8 sources)Anemia in chronic kidney disease; Translations: [ANEMIA IN CHRONIC KIDNEY DISEASE]Onset: 09-01-2021 Resolved: 47-41-1468IknykivHvbguwke mellitus with complications (20 sources)Chronic kidney disease due to type 2 diabetes mellitus; Translations: [Type 2 diabetes mellitus with diabetic chronic kidney disease] Onset: 578970-56-2638YtbuiyfTdxzpgcsb of lipid metabolism (20 sources)Dyslipidemia; Translations: [Hyperlipidemia, unspecified]Onset: 956635-15-1753DmhxnvnTqqqmqvgoh disorders (20 sources)Gastroesophageal reflux disease; Translations: [Gastro-esophageal reflux disease without esophagitis]Onset: 778515-68-4647HbpffenHgnwqtjoy hypertension (20 sources)Benign essential hypertension; Translations: [Essential (primary) hypertension]Onset: 03-04-2023 Resolved: 381040-75-0424HeqkvvpPsoib of unknown origin (10 sources)Fever; Translations: [Fever, unspecified]64-87-4495BzceulobQhjln and electrolyte disorders (5 sources)Acidosis; Translations: [Hypokalemia]Onset: 12-06-2021 Resolved: 73-64-1328FsumrmugFujqxqzekdedf congenital anomalies (20 sources)Polycystic kidney disease, adult type; Translations: [Polycystic kidney, adult type]Onset: 03-30-2021 Resolved: 79-27-4451AytgywbByslqqlppxvcc congenital anomalies (1 source)Multiple renal cysts; Translations: [Polycystic kidney disease] EpisodicGenitourinary symptoms and ill-defined conditions (11 sources)Dysuria; Translations: [Dysuria]31-71-0815HwydsubfWhjreiasqfyp with complications and secondary hypertension (20 sources)Chronic kidney disease due to hypertension; Translations: [Hypertensive chronic kidney disease withstage 1 through stage 4 chronic kidney disease, or unspecified chronic kidney disease]Onset: 09-08-2021 Resolved: 63-26-1924OgpnuvkLszbbehv disorders (2 sources)Immunosuppression; Translations: [Immunodeficiency, unspecified] 33-01-1442AjibbluMrwbrbpytiuiw and screening for infectious disease (2 sources)Needs influenza immunization; Translations: [Encounter for immunization]15-75-6664NuxxnqojLlptqynihocl hypoxia and asphyxia (1 source)Metabolic acidemia, unspecifiedEpisodicMalaise and fatigue (2 sources)Fatigue; Translations: [Chronic fatigue, unspecified]04-11-2025 ChronicMood disorders (5 sources)Moderate major depression ; Translations: [Major depressive disorder, single episode, moderate]Onset: 679927-72-1361UxokissSflggikczlt deficiencies (10 sources)Vitamin D deficiency; Translations: [Vitamin D deficiency, unspecified]22-82-5999BcawqqeWslrlpkpupsyla (5 sources)Degenerative joint disease involving multiple joints; Translations: [Primary generalized (osteo)arthritis]Onset: 806706-78-2637BjecbkmWyxei circulatory disease (7 sources)Acquired arteriovenous fistula aneurysm; Translations: [Arteriovenous fistula, acquired]ChronicOther circulatory disease (1 source)Ecchymosis; Translations: [Hemorrhage, not elsewhere classified] 72-95-5727BujksvetAzdki circulatory disease (6 sources)Hemorrhage, not elsewhere classified; Translations: [Postoperative ecchymosis]58-07-9588LnomzzclAmygt connective tissue disease (7 sources)Pain in left arm; Translations: [Pain in left arm]60-55-7890Aseaonql Other connective tissue disease (5 sources)H/O: gout; Translations: [Personal history of other diseases of the musculoskeletal system and connective tissue]Onset: 209540-70-8432Fqmjyxpi Other diseases of kidney and ureters (20 sources)Secondary hyperparathyroidism; Translations: [Secondary hyperparathyroidism of renal origin]Onset: 368763-40-7451CchvykiHdwhq diseases of kidney and ureters (4 sources)Secondary hyperparathyroidism of renal origin; Translations: [SEC HYPERPARATHYROIDISM RENAL ORIGN]Onset: 12-06-2021 Resolved: 75-70-7431VcqaqjpQlkzq female genital disorders (1 source)Pain in female genitalia on intercourse; Translations: [Unspecified dyspareunia]58-39-1593EplknsoEbfum inflammatory condition of skin (10 sources)Pruritus of skin; Translations: [Pruritus, unspecified]08-04-2019 EpisodicOther non-traumatic joint disorders (20 sources)Polyarthropathy; Translations: [Polyarthritis, unspecified]Onset: 846468-66-0867OjxvcfmWkorw nutritional; endocrine; and metabolic disorders (5 sources)Obesity caused by energy imbalance; Translations: [Class 1 obesity due to excess calories with serious comorbidity and body mass index (BMI) of 34.0 to 34.9 in adult]Onset: 573574-96-5269JxqtyswVthdi upper respiratory infections (2 sources)Acute pansinusitis; Translations: [Acute pansinusitis, unspecified] 03-73-9041VpgmbbeqPwfrtat cyst (6 sources)Unspecified ovarian cyst, left side; Translations: [Cyst of left ovary]Onset: 98-32-9994GffdwrqaFmgikjcwqm (except in labor) (11 sources)Sepsis; Translations: [Sepsis due to urinary tract infection] 16-04-1766DzplohbvHnbkxsr tract infections (20 sources)Acute cystitis; Translations: [Urinary tract infectious disease] 41-23-3140Wsycewsy Past or Other Problems Problem ClassificationProblemDateDocumented DateEpisodic/ChronicAcute myocardial infarction (20 sources)Myocardial infarction; Translations: [Non-ST elevation (NSTEMI) myocardial infarction]Onset: 04-16-2024 Resolved: 546261-37-7011XaeeckdWlbqvtcnzb and other anemia (20 sources)Iron deficiency anemia; Translations: [Iron deficiency anemia, unspecified]Onset: 547452-68-2290AaofjnlcJyxutyny mellitus without complication (20 sources)Impaired fasting glycemia; Translations: [Impaired fasting glucose] Onset: 03-04-2023 Resolved: 193160-65-7378BvbhbccwQtos and other crystal arthropathies (20 sources)Gout; Translations: [Gout, unspecified]Onset: 12-06-2021 Resolved: 11-24-3482YoeyqceXvepo aftercare (20 sources)Transplant follow-up; Translations: [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) drug therapy]Onset: [id number] connective tissue disease (20 sources)Fibromyalgia; Translations: [Fibromyalgia]Onset: 03-04-2023 63-80-1991SjaybkinWvbet hematologic conditions (1 source)Elevated erythrocyte sedimentation rate; Translations: [Elevated erythrocyte sedimentation rate]Onset: 32-25-7119IneaybqxTgrid nutritional; endocrine; and metabolic disorders (20 sources)Hyperuricemia; Translations: [Hyperuricemia without signs of inflammatory arthritis and tophaceous disease]Onset: 03-04-2023 Resolved: [id number] screening for suspected conditions (not mental disorders or infectious disease) (4 sources)Encounter for screening for malignant neoplasm of colon; Translations: [Decreased vitamin D]Onset: 02-26-2022 Resolved: 69-20-3448GbovpegbBfhvak media and related conditions (1 source)Otitis media, unspecified, bilateralOnset: 04-30-2022 Resolved: 65-61-1955TgvtjqbkSfvkqxxm codes; unclassified (20 sources)Obstructive sleep apnea syndrome; Translations: [Obstructive sleep apnea (adult) (pediatric)]Onset: 03-04-2023 Resolved: hronic Results Test NameValueInterpretationReference RangeFacilityALL CBC WITH AUTO DIFFon 36-06-0545XFTRNJJET ABSOLUTE AUTO0.0NOSoutheast Missouri HospitalBasophils/100 WBC (Bld)0.4 % 0.2 - 2.0 %[facility] CampusEosinophils/100 WBC (Bld)2.7 %0.9 - 7.0 %[facility] CampusErythrocyte distribution width (RBC) [Ratio]13.8 %11.0 - 15.0 %[facility] CampusHematocrit (Bld) [Volume fraction]39.1 %36.0 - 48.0 %[facility] Hemoglobin (Bld) [Mass/Vol]12.9 g/dL12.0 - 16.0 g/dLResearch Medical Center-Brookside CampusIMMATURE GRANULOCYTES ABS AUTO0.06HighResearch Medical Center-Brookside CampusImmature granulocytes/100 WBC (Bld) 0.7 %High0.0 - 0.5 %[facility] CampusInterpretation and review of laboratory resultsAbnormalResearch Medical Center-Brookside CampusLYMPHOCYTES ABSOLUTE AUTO1.4NOSoutheast [facility] Hospital Lymphocytes/100 WBC (Bld)15.4 %Low20.5 - 60.0 %[facility] HospitalH (RBC) [Entitic mass]28.9 pg26.7 - 34.0 pgWright Memorial HospitalHC (RBC) [Mass/Vol]33.0 g/dL29.9 - 35.2 g/dLWright Memorial HospitalV (RBC) [Entitic vol]87.5 fL81.0 - 99.0 fLResearch Medical Center-Brookside CampusMONOCYTES ABSOLUTE AUTO0.5NOAL HealthcareMonocytes/100 WBC (Bld)5.4 % 1.7 - 12.0 %[facility] CampusNEUTROPHILS ABSOLUTE AUTO6.7HighResearch Medical Center-Brookside Campus Neutrophils/100 WBC (Bld)75.4 %High43.0 - 75.0 %[facility] HealthcarePlatelet mean volume (Bld) [Entitic vol]8.7 fLLow9.5 - 13.5 fLSainte Genevieve County [facility] EO #0.2NOMS [facility] HospitalTBH [id number] [facility] RBC4.47NOMS [facility] WBC8.9NOSoutheast [place] HospitalCLINISYNCNMERCY HOS[facility] HealthcareALL CBC WITH AUTO DIFFon 32-89-4655CHNWPSDRH ABSOLUTE AUTO0.1NOMS HealthcareBasophils/100 WBC (Bld)0.6 %0.2 - 2.0 %NOMS HealthcareEosinophils/100 WBC (Bld)3.6 %0.9 - 7.0 %[facility] HealthcareErythrocyte distribution width (RBC) [Ratio]13.8 %11.0 - 15.0 %NOM HealthcareHematocrit (Bld) [Volume fraction]39.4 %36.0 - 48.0 %[facility] CampusHemoglobin (Bld) [Mass/Vol]13.3 g/dL12.0 - 16.0 g/dLResearch Medical Center-Brookside CampusIMMATURE GRANULOCYTES ABS AUTO 0.04HighNOSoutheast Missouri HospitalImmature granulocytes/100 WBC (Bld)0.5 %0.0 - 0.5 %[facility] HealthcareInterpretation and review of laboratory resultsAbnormalResearch Medical Center-Bro[facility] Campus LYMPHOCYTES ABSOLUTE AUTO1.5NOSoutheast Missouri HospitalLymphocytes/100 WBC (Bld)19.9 %Low 20.5 - 60.0 %[facility] HospitalH (RBC) [Entitic mass]29 pg26.7 - 34.0 pgWright Memorial HospitalHC (RBC) [Mass/Vol]33.8 g/dL29.9 - 35.2 g/dLWright Memorial HospitalV (RBC) [Entitic vol]85.8 fL81.0 - 99.0 fLResearch Medical Center-Brookside CampusMONOCYTES ABSOLUTE AUTO0.4NOMS HealthcareMonocytes/100 WBC (Bld)5.4 %1.7 - 12.0 %NOM HealthcareNEUTROPHILS ABSOLUTE AUTO5.4NOAL HealthcareNeutrophils/100 WBC (Bld)70 %43.0 - 75.0 %[facility] HealthcarePlatelet mean volume (Bld) [Entitic vol]9 fLLow9.5 - 13.5 fLNOMS HealthcareTBH EO #0.3NOMS HealthcareTBH [id number] HealthcareTBH RBC4.59NOMS HealthcareTBH WBC7.7NOMS HealthcareCLINISYNCNOMS HealthcareFollow-Upon [id number]-[id number] Mandeep Puri 1975 F Date Provider Department Center 06/01/2025 [id number], LEO TXP None Family History Problem Relation Age of Onset Fibromyalgia Mother Heart disease Father Hypertension Sister Polycystic kidney disease Sister Hypertension Brother Polycystic kidney disease Brother Family Status - Relation Status Age at Mother Alive Father Sister Brother Level of Service:46055 [place] OFFICE/OUTPATIENT ESTABLISHED MOD MDM 30 MIN Reason for Visit and Comments: Kidney Follow-up [] - Pt has been having pains where her old kidney is. Her abd is also swollen since April. She also has concerns about her Tac level being in the low 5's.[facility] CampusALL CBC WITH AUTO DIFFon [id number] ABSOLUTE AUTO0.1NOMS Healthcare Basophils/100 WBC (Bld)0.8 %0.2 - 2.0 %NOMS HealthcareEosinophils/100 WBC (Bld) 4.7 %0.9 - 7.0 %NOMS HealthcareErythrocyte distribution width (RBC) [Ratio]14.1 %11.0 - 15.0 %NOMS HealthcareHematocrit (Bld) [Volume fraction]40 %36.0 - 48.0 % NOMS HealthcareHemoglobin (Bld) [Mass/Vol]13.8 g/dL12.0 - 16.0 g/dLNOAL HealthcareIMMATURE GRANULOCYTES ABS AUTO0.06HighNOMS HealthcareImmature granulocytes/100 WBC (Bld)0.7 %High0.0 - 0.5 %NOMS HealthcareInterpretation and review of laboratory resultsAbnormalNOMS HealthcareLYMPHOCYTES ABSOLUTE AUTO1.8 NOMS HealthcareLymphocytes/100 WBC (Bld)21.5 %20.5 - 60.0 %NOMS [facility] HospitalH (RBC) [Entitic mass]29.7 pg26.7 - 34.[address] [facility] (RBC) [Mass/Vol] 34.5 g/dL29.9 - 35.2 g/dLNOMS HealthcareMCV (RBC) [Entitic vol]86 fL81.0 - 99.0 fLNOAL HealthcareMONOCYTES ABSOLUTE AUTO0.5NOMS HealthcareMonocytes/100 WBC (Bld)5.9 %1.7 - 12.0 %NOMS HealthcareNEUTROPHILS ABSOLUTE AUTO5.6NOMS Healthcare Neutrophils/100 WBC (Bld)66.4 %43.0 - 75.0 %NOMS HealthcarePlatelet mean volume (Bld) [Entitic vol]8.4 fLLow9.5 - 13.5 fLNOAL HealthcareTBH EO #0.4NOMS HealthcareTBH [id number] HealthcareTBH RBC4.65NOMS HealthcareTBH WBC8.4NOAL HealthcareCLINISYNCNOMS HealthcareALL MAGNESIUMon 38-87-5514Florhegzk [Mass/Vol] 1.5 mg/dLLow1.8 - 2.4 mg/dLNOAL HealthcareALL PHOSPHOROUSon 19-40-4761Amfevgtti [Mass/Vol]3.7 mg/dL2.6 - 4.7 mg/dLNOAL HealthcareALL URIC ACIDon 16-82-6104Mfaqf [Mass/Vol]4 mg/dL2.6 - 6.0 mg/dLNOSoutheast Missouri HospitalCCF CMP (CMP) (FOR REMOTE [facility] USE)on 44-45-2534Ojhrsux [Mass/Vol]3.8 g/dL3.4 - 5.0 g/dLNOAL HealthcareALBUMIN GLOBULIN RATIO0.9NOAL HealthcareALP [Catalytic activity/Vol]88 U/L46 - 116 U/L NOMS HealthcareALT [Catalytic activity/Vol]24 U/L14 - 59 U/LNOMS HealthcareAnion gap [Moles/Vol]12.1 mmol/LNOMS HealthcareAST [Catalytic activity/Vol]19 U/L15 - 37 U/LNOMS HealthcareBilirubin [Mass/Vol]0.4 mg/dL0.2 - 1.0 mg/dLNOAL Healthcare Calcium [Mass/Vol]9.3 mg/dL8.5 - 10.1 mg/dLNOAL HealthcareChloride [Moles/Vol] 104 mmol/L98 - 107 mmol/LNOMS HealthcareCO2 [Moles/Vol]27.1 mmol/L21.0 - 32.0 mmol/LNOMS HealthcareCreatinine [Mass/Vol]1.17 mg/dLHigh0.55 - 1.02 mg/dLNOMS HealthcareGFR/1.73 sq M.predicted CKD-EPI (S/P/Bld) [Vol rate/Area]60>=60 mL/min/1.73m 2NOMS HealthcareGlobulin (S) [Mass/Vol]4 g/dLNOMS HealthcareGlucose [Mass/Vol]91 mg/dL74 - 106 mg/dLNOAL HealthcarePotassium [Moles/Vol]3.2 mmol/L Low3.5 - 5.1 mmol/LNOMS HealthcareProtein [Mass/Vol]7.8 g/dL6.4 - 8.2 g/dLNOAL HealthcareSodium [Moles/Vol]140 mmol/L136 - 145 mmol/LNOMS HealthcareTBH EGFR- NON AF [id number]>=60 mL/min/1.73m 2NOMS HealthcareUrea nitrogen [Mass/Vol]14 mg/dL7.0 - 18.0 mg/dLNOAL HealthcareUrea nitrogen/Creatinine [Mass ratio]12 mg/mgNOAL HealthcareMETRO BILIRUBIN, DIRECTon [id number].indirect [Mass/Vol]0.1 mg/dL0.0 - 0.2 mg/dLNOAL HealthcareNo Panel Informationon 78-95-3623Hrrlbhfuyuiwkd and review of laboratory resultsAbnormalNOSoutheast Missouri Hospital CLINISYNCNOAL HealthcareALL CBC WITH AUTO DIFFon 60-89-7933YOVWPEABK ABSOLUTE [id number] HealthcareBasophils/100 WBC (Bld)0.5 %0.2 - 2.0 %NOMS Healthcare Eosinophils/100 WBC (Bld)3.8 %0.9 - 7.0 %NOMS HealthcareErythrocyte distribution width (RBC) [Ratio]13.9 %11.0 - 15.0 %NOMS HealthcareHematocrit (Bld) [Volume fraction]39.4 %36.0 - 48.0 %NOMS HealthcareHemoglobin (Bld) [Mass/Vol]13.4 g/dL 12.0 - 16.0 g/dLNOSoutheast Missouri HospitalIMMATURE GRANULOCYTES ABS AUTO0.03NOS[facility] Immature granulocytes/100 WBC (Bld)0.4 %0.0 - 0.5 %NOMS HealthcareInterpretation and review of laboratory resultsAbnormalNOSoutheast Missouri HospitalLYMPHOCYTES ABSOLUTE AUTO1.5NOSoutheast Missouri HospitalLymphocytes/100 WBC (Bld)18.3 %Low20.5 - 60.0 %[facility] HospitalH (RBC) [Entitic mass]29.4 pg26.7 - 34.0 pgWright Memorial HospitalHC (RBC) [Mass/Vol]34 g/dL29.9 - 35.2 g/dLWright Memorial HospitalV (RBC) [Entitic vol]86.4 fL 81.0 - 99.0 fLResearch Medical Center-Brookside CampusMONOCYTES ABSOLUTE AUTO0.4[facility] Monocytes/100 WBC (Bld)5.2 %1.7 - 12.0 %[facility] CampusNEUTROPHILS ABSOLUTE AUTO 5.9NOSoutheast Missouri HospitalNeutrophils/100 WBC (Bld)71.8 %43.0 - 75.0 %[facility] Platelet mean volume (Bld) [Entitic vol]8.6 fLLow9.5 - 13.5 fLResearch Medical Center-Brookside CampusTB EO #0.3NOThe [facility] [id number] [facility] RBC4.56NOThe [facility] WBC 8.1NOMS [facility] HospitalCLINISYNCNRay County [facility] MAGNESIUMon 10-07-5953Cgbjkqoie [Mass/Vol]1.8 mg/dL1.8 - 2.4 mg/dLMiss[facility] PHOSPHOROUSon 04-02-2025 Phosphate [Mass/Vol]3.5 mg/dL2.6 - 4.7 mg/dLMiss[facility] URIC ACIDon 29-35-2414Ewaph [Mass/Vol]5 mg/dL2.6 - 6.0 mg/dLHarry [facility]. [facility] CMP (CMP) (FOR REMOTE [facility] USE)on 43-18-6016Dzqebyc [Mass/Vol]3.8 g/dL3.4 - 5.0 g/dLResearch Medical Center-Brook[facility] CampusALBUMIN GLOBULIN WFARL5VXBWSoutheast Missouri HospitalALP [Catalytic activity/Vol]90 U/L46 - 116 U/LNOMS HealthcareALT [Catalytic activity/Vol]22 U/L14 - 59 U/LNOMS HealthcareAnion gap [Moles/Vol]15.7 mmol/LNMERCY HOSP[facility] HealthcareAST [Catalytic activity/Vol]16 U/L15 - 37 U/LNOMS HealthcareBilirubin [Mass/Vol]0.4 mg/dL0.2 - 1.0 mg/dLNOAL HealthcareCalcium [Mass/Vol]9.3 mg/dL8.5 - 10.1 mg/dLNOAL HealthcareChloride [Moles/Vol]105 mmol/L98 - 107 mmol/LNOMS HealthcareCO2 [Moles/Vol]24.5 mmol/L21.0 - 32.0 mmol/LNOMS HealthcareCreatinine [Mass/Vol]1.18 mg/dLHigh0.55 - 1.02 mg/dLNOMS HealthcareGFR/1.73 sq M.predicted CKD-EPI (S/P/Bld) [Vol rate/Area]59Low>=60 mL/min/1.73m 2NOMS HealthcareGlobulin (S) [Mass/Vol]3.9 g/dLNOAL HealthcareGlucose [Mass/Vol]114 mg/pWFgfz51 - 106 mg/dL NOM HealthcareInterpretation and review of laboratory resultsAbnormalNOAL HealthcarePotassium [Moles/Vol]3.2 mmol/LLow3.5 - 5.1 mmol/LNOMS Healthcare Protein [Mass/Vol]7.7 g/dL6.4 - 8.2 g/dLNOAL HealthcareSodium [Moles/Vol]142 mmol/L136 - 145 mmol/LNOMS HealthcareTBH EGFR-NON AF MVQQOZQR42Qhc>=60 mL/min/1.73m 2NOMS HealthcareUrea nitrogen [Mass/Vol]14 mg/dL7.0 - 18.0 mg/dL NOM HealthcareUrea nitrogen/Creatinine [Mass ratio]11.9 mg/mgNOSoutheast Missouri Hospital METRO BILIRUBIN, DIRECTon 25-23-2591Ceipqwtpv.indirect [Mass/Vol]0.1 mg/dL0.0 - 0.2 mg/dLNOAL HealthcareNo Panel Informationon [id number] HealthcareALL CBC WITH AUTO DIFFon 87-35-2897WGWBXHQWX ABSOLUTE AUTO0.1NOMS HealthcareBasophils/100 WBC (Bld)0.8 %0.2 - 2.0 %NOMS HealthcareEosinophils/100 WBC (Bld)4.3 %0.9 - 7.0 %NOMS HealthcareErythrocyte distribution width (RBC) [Ratio]14.6 %11.0 - 15.0 %NOMS HealthcareHematocrit (Bld) [Volume fraction]39.6 %36.0 - 48.0 %NOM HealthcareHemoglobin (Bld) [Mass/Vol]13.2 g/dL12.0 - 16.0 g/dLNOAL HealthcareIMMATURE GRANULOCYTES ABS AUTO0.03NOAL HealthcareImmature granulocytes/100 WBC (Bld)0.4 %0.0 - 0.5 %NOM HealthcareInterpretation and review of laboratory resultsAbnormalNOAL HealthcareLYMPHOCYTES ABSOLUTE AUTO1.5 NOM HealthcareLymphocytes/100 WBC (Bld)20.1 %Low20.5 - 60.0 %[facility] HospitalH (RBC) [Entitic mass]28.9 pg26.7 - 34.0 pgNONevada Regional Medical CenterHC (RBC) [Mass/Vol] 33.3 g/dL29.9 - 35.2 g/dLNOSoutheast Missouri HospitalMCV (RBC) [Entitic vol]86.8 fL81.0 - 99.0 fLNOAL HealthcareMONOCYTES ABSOLUTE AUTO0.4NOAL HealthcareMonocytes/100 WBC (Bld)5.4 %1.7 - 12.0 %NOM HealthcareNEUTROPHILS ABSOLUTE AUTO5.2NOMS Healthcare Neutrophils/100 WBC (Bld)69 %43.0 - 75.0 %[facility] HealthcarePlatelet mean volume (Bld) [Entitic vol]8.5 fLLow9.5 - 13.5 fLNOAL HealthcareTBH EO #0.3NOMS HealthcareTB [id number] HealthcareTB RBC4.56NOMS HealthcareTB WBC7.5NOAL HealthcareCLINISYNCNOMS HealthcareOrders Onlyon 22-00-0312Rnagyd [id number] Mandeep Puri 1975 F Date Provider Department Center 02/02/2025 [id number]-TBOICVJOE LOMAX None Family History Problem Relation Age of Onset Fibromyalgia Mother Heart disease Father Hypertension Sister Polycystic kidney disease Sister Hypertension Brother Polycystic kidney disease Brother Family Status - Relation Status Age at Mother Alive Father Sister BrotherNormalUniversity of Saint Camillus Medical Center36on [id number] called into the office requesting a refill [...] up to be sent over upon your approval.[facility] CampusRefillon [id number] Mandeep Puri 1975 F Date Provider Department Center 01/31/2025 ANDERSON GOODWIN None Family History Problem Relation Age of Onset Fibromyalgia Mother Heart disease Father Hypertension Sister Polycystic kidney disease Sister Hypertension Brother Polycystic kidney disease Brother Family Status - Relation Status Age at Mother Alive Father Sister Brother Reason for Visit and Comments: Med Refill [[id number]] Med Management [[id number]][facility] CampusALL CBC WITH AUTO DIFFon 54-61-9504UFSNRXUIU ABSOLUTE AUTO0.1NOMS HealthcareBasophils/100 WBC (Bld)0.7 %0.2 - 2.0 %NOMS HealthcareEosinophils/100 WBC (Bld)2.7 %0.9 - 7.0 %NOMS HealthcareErythrocyte distribution width (RBC) [Ratio]14.5 %11.0 - 15.0 % NOMS HealthcareHematocrit (Bld) [Volume fraction]41.9 %36.0 - 48.0 %NOM HealthcareHemoglobin (Bld) [Mass/Vol]13.9 g/dL12.0 - 16.0 g/dLNOSoutheast [facility] Hospital IMMATURE GRANULOCYTES ABS AUTO0.03NOMS HealthcareImmature granulocytes/100 WBC (Bld)0.4 %0.0 - 0.5 %NOMS HealthcareInterpretation and review of laboratory resultsAbnormalNOAL HealthcareLYMPHOCYTES ABSOLUTE AUTO1.6NOMS Healthcare Lymphocytes/100 WBC (Bld)19.1 %Low20.5 - 60.0 %NOMFreeman Cancer InstituteH (RBC) [Entitic mass]28.7 pg26.7 - 34.0 pgNONevada Regional Medical CenterHC (RBC) [Mass/Vol]33.2 g/dL29.9 - 35.2 g/dLNOMS HealthcareMCV (RBC) [Entitic vol]86.4 fL81.0 - 99.0 fLNOMS HealthcareMONOCYTES ABSOLUTE AUTO0.6NOMS HealthcareMonocytes/100 WBC (Bld)6.4 % 1.7 - 12.0 %NOMS HealthcareNEUTROPHILS ABSOLUTE [id number] Healthcare Neutrophils/100 WBC (Bld)70.7 %43.0 - 75.0 %NOMS HealthcarePlatelet mean volume (Bld) [Entitic vol]8.6 fLLow9.5 - 13.5 fLNOMS HealthcareTBH EO #0.2NOMS HealthcareTBH [id number] HealthcareTBH RBC4.85NOMS HealthcareTBH WBC8.5NOMS HealthcareCLINISYNCNOMS HealthcareDocumentationon [id number] [id number] Mandeep Puri 1975 F Date Provider Department Center 12/14/2024 LuigiANDERSON DEL RIO None Family History Problem Relation Age of Onset Fibromyalgia Mother Heart disease Father Hypertension Sister Polycystic kidney disease Sister Hypertension Brother Polycystic kidney disease Brother Family Status - Relation Status Age at Mother Alive Father Sister Brother Reason for Visit and Comments: Results [95]NormalProMedica Bay Park HospitalALL CBC WITH AUTO DIFFon 60-66-5921ORQCACMCM ABSOLUTE HRCT2IRXB HealthcareBasophils/100 WBC (Bld)0.6 %0.2 - 2.0 %NOMS HealthcareEosinophils/100 WBC (Bld)5 %0.9 - 7.0 %NOMS Healthcare Erythrocyte distribution width (RBC) [Ratio]15.1 %High11.0 - 15.0 %NOMS HealthcareHematocrit (Bld) [Volume fraction]38.9 %36.0 - 48.0 %NOMS Healthcare Hemoglobin (Bld) [Mass/Vol]12.5 g/dL12.0 - 16.0 g/dLNOAL HealthcareIMMATURE GRANULOCYTES ABS AUTO0.04HighNOAL HealthcareImmature granulocytes/100 WBC (Bld) 0.6 %High0.0 - 0.5 %NOMS HealthcareInterpretation and review of laboratory resultsAbnormalNOAL HealthcareLYMPHOCYTES ABSOLUTE AUTO1.1LowNOMS Healthcare Lymphocytes/100 WBC (Bld)17.6 %Low20.5 - 60.0 %[facility] HospitalH (RBC) [Entitic mass]27.8 pg26.7 - 34.0 pgWright Memorial HospitalHC (RBC) [Mass/Vol]32.1 g/dL29.9 - 35.2 g/dLWright Memorial HospitalV (RBC) [Entitic vol]86.6 fL81.0 - 99.0 fLASHLEY REGIONAL MEDICAL CENTER HealthcareMONOCYTES ABSOLUTE AUTO0.4NOAL HealthcareMonocytes/100 WBC (Bld)5.4 % 1.7 - 12.0 %[facility] CampusNEUTROPHILS ABSOLUTE AUTO4.6NOMS Healthcare Neutrophils/100 WBC (Bld)70.8 %43.0 - 75.0 %[facility] CampusPlatelet mean volume (Bld) [Entitic vol]8.7 fLLow9.5 - 13.5 fLNOMS HealthcareTBH EO #0.3NOMS HealthcareTB [id number] HealthcareTB RBC4.49NOMS HealthcareTBH WBC6.4NOMS HealthcareCLINISYNCNOMS HealthcareRefillon [id number] KhushiMandeep 1975 F Date Provider Department Center 11/25/2024 [id number]-AXWGMBARIK JENKINS TXP None Family History Problem Relation Age of Onset Fibromyalgia Mother Heart disease Father Hypertension Sister Polycystic kidney disease Sister Hypertension Brother Polycystic kidney disease Brother Family Status - Relation Status Age at Mother Alive Father Sister BrotherNormalUniversAdena Fayette Medical CenterFollow-Upon 03-70-1895Cmiyrv-Up [id number] KhushiMandeep 1975 F Date Provider Department Center 11/12/2024 [id number]-HQLMESYLEO KHAN TXP None Family History Problem Relation Age of Onset Fibromyalgia Mother Heart disease Father Hypertension Sister Polycystic kidney disease Sister Hypertension Brother Polycystic kidney disease Brother Family Status - Relation Status Age at Mother Alive Father Sister Brother Level of Service:09197 [place] OFFICE/OUTPATIENT ESTABLISHED MOD MDM 30 MIN Reason for Visit and Comments: Kidney Follow-up [] - Pt has reoccurring uti's x7 months. She is going to ID to be checked. She would like a standing lab order for a ua.Normal [facility] HospitalOrders Onlyon 40-22-6637Vavjbl [id number] Mandeep Puri 1975 F Date Provider Department Center 10/21/2024 1971-LU STEPHENS None Family History Problem Relation Age of Onset Fibromyalgia Mother Heart disease Father Hypertension Sister Polycystic kidney disease Sister Hypertension Brother Polycystic kidney disease Brother Family Status - Relation Status Age at Mother Father Sister BrotherNormalUniversity Grand Lake [facility] Memorial HospitalALL URINALYSISon 10-14-2024 BILIRUBIN URINENegativeNEGATIVENOMS HealthcareBLOOD URINETRACE-INEGATIVENOMS HealthcareClarity (U)CLEARCLEARNOMS HealthcareColor (U)LT. YELLOWYELLOWNOMS HealthcareGLUCOSE URINE UANegativeNEGATIVE mg/dLNOMS HealthcareInterpretation and review of laboratory resultsAbnormalNOMS HealthcareKetones Ql (U)Negative NEGATIVE mg/dLNOMS HealthcareLeukocyte esterase Test strip Ql (U)LARGEAbnormal NEGATIVENOMS HealthcareNITRITE URINEPositiveAbnormalNEGATIVENOMS HealthcarepH (U)7.5 [pH]5.0 - 9.0NOMS HealthcarePROTEIN URINENegativeNEG/TRACE mg/dLNOMS HealthcareSPECIFIC GRAVITY URINE1.0151.005 - 1.025NOMS HealthcareUROBILINOGEN URINE0.2 EU/dL0.2 - 1.0 EU/dLNOMS HealthcareCLINISYNCNOMS HealthcareUrine Cultureon [id number] identified Cx Nom (U)ORGANISM: Escherichia coli (MDRO) (O:ESCCOLMDRO) [place] Count >100,000 Aerobic CODI Charge (NMIC56) SUSCEPTIBILITY [...] RESISTANT TO ALL B-LACTAM DRUGS. PERFORMED BY: [place] [address] PATHOLOGIST TOOLROOM CLERK DOM MARIEE M.D.[facility] Physician GroupComment on above: Performed By: #### CUU #### [place] [address] USAALL MAGNESIUMon 61-78-8127Kvdmcbhqv [Mass/Vol]1.8 mg/dL1.8 - 2.4 mg/dLNOSoutheast Missouri HospitalALL PHOSPHOROUSon 66-14-8245Cpemymljg [Mass/Vol]3.9 mg/dL2.6 - 4.7 mg/dLResearch Medical Center-Brookside CampusALL URIC ACIDon 68-93-4613Ipykp [Mass/Vol]4.2 mg/dL2.6 - 6.0 mg/dLNOAL HealthcareCCF CMP (CMP) (FOR REMOTE [facility] USE)on 49-92-8973Dsgcopg [Mass/Vol]3.3 g/dLLow3.4 - 5.0 g/dLNOAL HealthcareALBUMIN GLOBULIN RATIO0.8NOAL HealthcareALP [Catalytic activity/Vol]84 U/L46 - 116 U/L NOMS HealthcareALT [Catalytic activity/Vol]13 U/LLow14 - 59 U/LNOMS Healthcare Anion gap [Moles/Vol]14.6 mmol/LNOMS HealthcareAST [Catalytic activity/Vol]11 U/LLow15 - 37 U/LNOMS HealthcareBilirubin [Mass/Vol]0.3 mg/dL0.2 - 1.0 mg/dLNOAL HealthcareCalcium [Mass/Vol]9.3 mg/dL8.5 - 10.1 mg/dLNOAL HealthcareChloride [Moles/Vol]105 mmol/L98 - 107 mmol/LNOMS HealthcareCO2 [Moles/Vol]25 mmol/L21.0 - 32.0 mmol/LNOMS HealthcareCreatinine [Mass/Vol]1.37 mg/dLHigh0.55 - 1.02 mg/dL NOM HealthcareGFR/1.73 sq M.predicted CKD-EPI (S/P/Bld) [Vol rate/Area]50Low >=60 mL/min/1.73m 2NMERCY [facility]OS[facility] HealthcareGlobulin (S) [Mass/Vol]4.2 g/dLNOSoutheast [facility] Hospital Glucose [Mass/Vol]102 mg/dL74 - 106 mg/dLNOAL HealthcareInterpretation and review of laboratory resultsAbnormalNOAL HealthcarePotassium [Moles/Vol]3.6 mmol/L3.5 - 5.1 mmol/LNOMS HealthcareProtein [Mass/Vol]7.5 g/dL6.4 - 8.2 g/dL [facility] HealthcareSodium [Moles/Vol]141 mmol/L136 - 145 mmol/LNOMS HealthcareTBH EGFR-NON AF OQNSBDBX49Bkb>=60 mL/min/1.73m 2NMERCY [facility]OS[facility] [place] HealthcareUrea nitrogen [Mass/Vol]17 mg/dL7.0 - 18.0 mg/dLNOSoutheast Missouri HospitalUrea nitrogen/Creatinine [Mass ratio]12.4 mg/mgNOSoutheast Missouri HospitalMETRO BILIRUBIN, DIRECTon 10-02-2024 Bilirubin.indirect [Mass/Vol]0.1 mg/dL0.0 - 0.2 mg/dLResearch Medical Center-Brookside CampusNo Panel Informationon [id number] HealthcareALL CBC WITH AUTO DIFFon 80-29-3686TLHPAXNDJ ABSOLUTE WLJE7VRGB HealthcareBasophils/100 WBC (Bld)0.3 %0.2 - 2.0 %NOMS HealthcareEosinophils/100 WBC (Bld)2.8 %0.9 - 7.0 %[facility] Erythrocyte distribution width (RBC) [Ratio]14.5 %11.0 - 15.0 %[facility] Hematocrit (Bld) [Volume fraction]34.4 %Low36.0 - 48.0 %[facility] Hemoglobin (Bld) [Mass/Vol]10.9 g/dLLow12.0 - 16.0 g/dLResearch Medical Center-Brookside CampusIMMATURE GRANULOCYTES ABS AUTO0.03NOSoutheast [place] HospitalImmature granulocytes/100 WBC (Bld)0.4 % 0.0 - 0.5 %[facility] CampusInterpretation and review of laboratory results AbnormalResearch Medical Center-Brookside CampusLYMPHOCYTES ABSOLUTE AUTO1.2NOMS [facility] Lymphocytes/100 WBC (Bld)15.4 %Low20.5 - 60.0 %[facility] HospitalH (RBC) [Entitic mass]27.5 pg26.7 - 34.0 pgMober[facility] (RBC) [Mass/Vol]31.7 g/dL29.9 - 35.2 g/dLWright Memorial HospitalV (RBC) [Entitic vol]86.9 fL81.0 - 99.0 fLResearch Medical Center-Brookside CampusMONOCYTES ABSOLUTE AUTO0.5NOSoutheast [place] HospitalMonocytes/100 WBC (Bld)6.2 % 1.7 - 12.0 %[facility] CampusNEUTROPHILS ABSOLUTE AUTO5.7[facility] Neutrophils/100 WBC (Bld)74.9 %43.0 - 75.0 %[facility] CampusPlatelet mean volume (Bld) [Entitic vol]8.5 fLLow9.5 - 13.5 fLResearch Medical Center-Brookside CampusTB EO #0.2NOMS [facility] BPX129ZFOIThe [facility] of [facility] [place] RBC3.96LowNOThe [facility] [place] WBC7.6NOSoutheast [place] HospitalCLINISYNCNRipley County Memorial HospitalALL LIPID PROFILE (FASTING)on [id number] HDL RATIO3.6NOAL HealthcareComment on above:3.3 - 4.4 LOW RISK 4.4 - 7.1 AVERAGE RISK 7.1 - 11.0 MODERATE RISK >11.0 HIGH RISK Cholesterol [Mass/Vol]175 mg/dLNINF - 200 mg/dLResearch Medical Center-Brookside CampusCholesterol in HDL [Mass/Vol]49 mg/dL40 - 60 mg/dLASHLEY REGIONAL [facility] HealthcareComment on above:> or =60 mg/dl - LOW CARDIOVASCULAR RISK <40 mg/dl - HIGH CARDIOVASCULAR RISK Magnesium [Mass/Vol]99.6 mg/dLNOAL HealthcareComment on above:<100 mg/dl OPTIMAL 100-129 mg/dl NEAR OR ABOVE OPTIMAL 130-159 mg/dl BORDERLINE HIGH 160-189 mg/dl HIGH >190 mg/dl VERY HIGH Magnesium [Mass/Vol]26.4 mg/dLNOMS HealthcareTriglyceride [Mass/Vol]132 mg/dL NINF - 150 mg/dLNOAL HealthcareALL MAGNESIUMon 07-76-0724Kfkienvpd [Mass/Vol]1.9 mg/dL1.8 - 2.4 mg/dLNOAL HealthcareALL PHOSPHOROUSon 35-08-4947Oglcxqqic [Mass/Vol]3.7 mg/dL2.6 - 4.7 mg/dLNOAL HealthcareALL URIC ACIDon 00-69-8877Uybbq [Mass/Vol]4 mg/dL2.6 - 6.0 mg/dLNOAL HealthcareCCF CMP (CMP) (FOR REMOTE [facility] USE)on 37-85-9468Juixahj [Mass/Vol]3.4 g/dL3.4 - 5.0 g/dLNOAL HealthcareALBUMIN GLOBULIN RATIO0.8NOAL HealthcareALP [Catalytic activity/Vol]86 U/L46 - 116 U/L NOMS HealthcareALT [Catalytic activity/Vol]19 U/L14 - 59 U/LNOMS HealthcareAnion gap [Moles/Vol]17.2 mmol/LNOMS HealthcareAST [Catalytic activity/Vol]11 U/LLow15 - 37 U/LNOMS HealthcareBilirubin [Mass/Vol]0.4 mg/dL0.2 - 1.0 mg/dLNOAL HealthcareCalcium [Mass/Vol]9.3 mg/dL8.5 - 10.1 mg/dLNOAL HealthcareChloride [Moles/Vol]104 mmol/L98 - 107 mmol/LNOMS HealthcareCO2 [Moles/Vol]24.6 mmol/L 21.0 - 32.0 mmol/LNOMS HealthcareCreatinine [Mass/Vol]1.34 mg/dLHigh0.55 - 1.02 mg/dLNOAL HealthcareGFR/1.73 sq M.predicted CKD-EPI (S/P/Bld) [Vol rate/Area]51 Low>=60 mL/min/1.73m 2NOMS HealthcareGlobulin (S) [Mass/Vol]4.2 g/dLNOMS HealthcareGlucose [Mass/Vol]98 mg/dL74 - 106 mg/dLNOMS HealthcareInterpretation and review of laboratory resultsAbnormalNOMS HealthcarePotassium [Moles/Vol]3.8 mmol/L3.5 - 5.1 mmol/LNOMS HealthcareProtein [Mass/Vol]7.6 g/dL6.4 - 8.2 g/dL NOMS HealthcareSodium [Moles/Vol]142 mmol/L136 - 145 mmol/LNOMS HealthcareTBH EGFR-NON AF VJFCUKDD36Eud>=60 mL/min/1.73m 2NOMS HealthcareUrea nitrogen [Mass/Vol]16 mg/dL7.0 - 18.0 mg/dLNOMS HealthcareUrea nitrogen/Creatinine [Mass ratio]11.9 mg/mgNOAL HealthcareMETRO BILIRUBIN, DIRECTon 08-31-2024 Bilirubin.indirect [Mass/Vol]0.1 mg/dL0.0 - 0.2 mg/dLNOAL HealthcareMLR HEMOGLOBIN A1Con 70-99-0530Jkjxypr [Mass/Vol]103 mg/dLNOSoutheast Missouri HospitalMwskakxlriPtW7q (Bld) [Mass fraction]5.2 %4.5 - 6.2 %NOMS HealthcareComment on above:ADA RECOMMENDED LIMIT 4.0 - 6.0 ADA THERAPEUTIC TARGET < 7.0 ACTION SUGGESTED > 7.0 CLINISYNCNOAL HealthcareNo Panel Informationon 79-07-6255PXWUBDUXLBMFN HealthcareMM screening mammo BI w/CADon 75-88-0808WL screening mammo BI w/[place] [address] Mammography Report Signed Patient: Mandeep Puri MR#: [id number] : 1975 Acct:[id number] Age/Sex: 48 / F ADM Date: 08/25/24 Loc: [place] Room: Type: [facility] Attending Dr: Blake Hinojosa DO Copies [...] Messina Jr., D.O.08/25/2024 3:24 PM Dictation Location: [facility] Transcribed By: [facility] 08/25/24 1524 Dictated By: Evan Messina Jr, DO 08/25/24 1523 Signed By: 08/25/24 [facility]ician GroupMammography reportOrdered By: Evan Messina on 40-04-6545Fnyahihoxo imaging [facility] [place] [address] [place] [address] Mammography Report Signed Patient: Mandeep Puri MR#: [id number] : 1975 Acct:[id number] Age/Sex: 48 / F ADM Date: 4 Loc: [place] Room: Type: [facility] Attending Dr: Blake Hinojosa DO Copies to: DO Blake Pederson DO~ Ordering Provider: Blake Hniojosa DO Date of Service: 08/25/24 MM/MM screening [...] Messina Jr., D.OSon08/25/2024 3:24 PM Dictation Location: [facility] Transcribed By: SALMA 08/25/241523 Dictated By: Evan Messina Jr, DO 08/25/24 152 Signed By: 08/25/24 152 [facility] CenterCA 125on 03-56-6894PEJFRS ANTIGEN 46501.90.0 - 38.1NOMS HealthcareComment on above:[employer] Electrochemiluminescence Immunoassay (ECLIA) Values obtained with different assay methods or kits cannot be used interchangeably. Results cannot be interpreted as absolute evidence of the presence or absence of malignant disease. Performed at: [address] [id number] Agency Sales Representative: Gabriel Whitman PhD, Phone: [phone] [facility]24 hour urine albumin/total protein ratio by electrophoresis Ordered By: Jesus Ayala on 14-66-5437Vecfxek Elph (24H U) [Mass fraction] Albumin/Protein.total in 24 hour Urine by Electrophoresis.[facility]24 hour urine gamma globulin/total protein ratio by electrophoresisOrdered By: Jesus Ayala on 03-65-9526Kmnbq globulin Elph (24H U) [Mass fraction]Gamma globulin/Protein.total in 24 hour Urine by Electrophoresis.[facility]24 hour urine protein monoclonal/total protein by electrophoresisOrdered By: Jesus Ayala on 60-10-2077Uxyxmmt.monoclonal Elph (24H U) [Mass fraction] Protein.monoclonal/Protein.total in 24 hour Urine by ElectrophoresisNot Observed [facility] CenterAlanine aminotransferase [Enzymatic activity/volume] in Serum or PlasmaOrdered By: Jesus Gruebrrow on 34-28-2898DEQ [Catalytic activity/Vol]11 U/LNormalAdena Fayette Medical CenterComment on above:Performed By: #### ESR, CK, ADDONUAPLUS, CMP, CRP, T4F, TSH3, CBC #### [facility] [address] [place] [address] [place] #### ALDOLASE, CAMILLA SERUM, SPE, CAMILLA,URINE, UPE RAND #### [facility] ,ALT [Catalytic activity/Vol]Alanine aminotransferase [Enzymatic activity/volume] in Serum or PlasmaAdena Fayette Medical CenterAlbumin [Mass/volume] in Serum or Plasma by Bromocresol green (BCG) dye binding metho Ordered By: Jesus Ayala on 54-85-8865Wdcnrna BCG dye [Mass/Vol]4.3 g/dL 3.5-5.7FParkwood HospitalAlbumin BCG dye [Mass/Vol]Albumin [Mass/volume] in Serum or Plasma by Bromocresol green (BCG) dye binding metho 3.5-5.7FParkwood HospitalAldolaseon 33-79-3703Fizpqcdp8.5 U/L Normal3.3-10.3The [facility] Physician GroupComment on above:Result Comment: Performed at: - [facility] [address] [id number] Agency Sales Representative: Gabriel Whitman PhD, Phone: [phone] PERFORMED BY: [place] [address] PATHOLOGIST TOOLROOM CLERK ANAHY MCKEE M.D.Performed By: #### CEA #### [facility] [address] [place] [address] [place] #### CA125 #### [facility] ,Alkaline phosphatase [Enzymatic activity/volume] in Serum or PlasmaOrdered By: Jesus Ayala on 33-27-2254HRI [Catalytic activity/Vol]87 U/KGbltgz59-663 [facility] CenterComment on above:Performed By: #### ESR, CK, ADDONUAPLUS, CMP, CRP, T4F, TSH3, CBC #### [facility] [address] [place] [address] #### ALDOLASE, CAMILLA SERUM, SPE, CAMILLA,URINE, UPE RAND #### [facility] ,ALP [Catalytic activity/Vol]Alkaline phosphatase [Enzymatic activity/volume] in Serum or Pcfbsc39-067LfojjqmobAdena Fayette Medical CenterAppearance of UrineOrdered By: Jesus Jamie on 69-12-9042Xohnzcnyle (U)Urine appearanceClePremier Health Upper Valley Medical CenterAspartate aminotransferase [Enzymatic activity/volume] in Serum or PlasmaOrdered By: Jesus Gruberrow on 04-10-6230MUQ [Catalytic activity/Vol]13 U/KInblcx92-32Jnyvytf[address] [place], [place] [address]Comment on above: Performed By: #### ESR, CK, ADDONUAPLUS, CMP, CRP, T4F, TSH3, CBC #### [facility] [address] [place] [address] #### ALDOLASE, CAMILLA SERUM, SPE, CAMILLA,URINE, UPE RAND #### [facility] ,AST [Catalytic activity/Vol]Aspartate aminotransferase [Enzymatic activity/volume] in Serum or Qepelz46-55Biwespvac[address] [place] [address] Automated basophil %Ordered By: Jesus Gruberrow on 41-98-2692Kecxexpdo/100 WBC (Bld)0.6 %Normal.[facility] CenterComment on above:Performed By: #### CEA #### [facility] [address] [place] [address] [place] #### CA125 #### [facility] ,Automated basophil countOrdered By: Jesus Gruberrow on 50-89-9280Vjzatbgdb (Bld) [#/Vol]0.0 10*3/uLNormal0.0-0.2FParkwood HospitalComment on above:Performed By: #### CEA #### [facility] [address] [place] [address] [place] #### CA125 #### [facility] ,Automated blood monocyte countOrdered By: Jesus Gruberrow on 25-07-4105Ealzjwlgw (Bld) [#/Vol]0.4 10*3/uLNormal0.0-0.8[facility] CenterComment on above:Performed By: #### CEA #### [facility] [address] [place] [address] [place] #### CA125 #### [facility] ,Automated eosinophil %Ordered By: Jesus Ayala on 89-90-1135Dhwgzvmwzgd/100 WBC (Bld)3.0 %Normal.[facility] CenterComment on above:Performed By: #### CEA #### [facility] [address] [place] [address] [place] #### CA125 #### [facility] ,Automated eosinophil countOrdered By: Jesus Gruberrow on 93-65-5007Blvcsokircq (Bld) [#/Vol]0.2 10*3/uLNormal0.0-0.45[facility] CenterComment on above:Performed By: #### CEA #### [facility] [address] [place] [address] [place] #### CA125 #### [facility] ,Automated epithelial cells count in urine sediment (number/area)Ordered By: Jesus Gruberrow on 60-03-4139Cubcrvuvmd cells Auto (Urine sed) [#/Area]5-9 [HPF] High02FParkwood HospitalEpithelial cells Auto (Urine sed) [#/Area]Automated epithelial cells count in urine sediment (number/area)High0-2 [facility] CenterAutomated erythrocytes count in urine sediment (number/area)Ordered By: Jesus Gruberrow on 37-90-2311SPI Auto (Urine sed) [#/Area]Erythrocytes [#/area] in Urine sediment by Automated count0-4FParkwood HospitalAutomated leukocytes count in urine sediment (number/area)Ordered By: Jesus Gruberrow on 49-79-4086KWJ Auto (Urine sed) [#/Area]Leukocytes [#/area] in Urine sediment by Automated count0-4FParkwood HospitalAutomated monocyte %Ordered By: Jesus Ayala on 12-51-5968Nzmnyudhr/100 WBC (Bld)4.5 %Normal.[facility] Comment on above:Performed By: #### CEA #### [facility] [address] [place] [address] [place] #### CA125 #### [facility] ,Automated neutrophil %Ordered By: Jesus Ayala on 99-36-8688Vurnihvihzh/100 WBC (Bld)76.9 %Normal.[facility] CenterComment on above: Performed By: #### CEA #### [facility] [address] [place] [address] [place] #### CA125 #### [facility] ,Bacteria [Presence] in Urine by AutomatedOrdered By: Jesus Ayala on 37-32-8017Pnhbattm Auto Ql (U)None seen [HPF]None SeenAdena Fayette Medical CenterBasophils Auto (Bld) [#/Vol]Ordered By: Jesus Ayala on 08-02-2024 Basophils (Bld) [#/Vol]Automated basophil count0.0-0.2FParkwood HospitalBasophils/100 WBC Auto (Bld)Ordered By: Jesus Ayala on 08-02-2024 Basophils/100 WBC (Bld)Automated basophil %.[facility] Bilirubin Test strip Ql (U)Ordered By: Jesus Ayala on 08-98-1066Wfsirudwq Ql (U)NegativeNegativeAdena Fayette Medical CenterBilirubin Ql (U) Bilirubin.total [Presence] in Urine by Test stripNegativeAdena Fayette Medical CenterBilirubin.total [Mass/volume] in Serum or PlasmaOrdered By: Jesus Ayala on 33-45-8174Uvwwaoboa [Mass/Vol]0.3 mg/dLNormal0.3-1.0[facility] Medical CenterComment on above:Performed By: #### ESR, CK, ADDONUAPLUS, CMP, CRP, T4F, TSH3, CBC #### [facility] [address] #### ALDOLASE, CAMILLA SERUM, SPE, CAMILLA,URINE, UPE RAND #### [facility] ,Bilirubin [Mass/Vol]Bilirubin.total [Mass/volume] in Serum or Plasma0.3-1.0 [facility] CenterC reactive protein [Mass/volume] in Serum or PlasmaOrdered By: Jesus Ayala on 52-47-4412XGX [Mass/Vol]1.7 mg/dLHigh0.0-0.5 [facility] CenterCRP [Mass/Vol]C reactive protein [Mass/volume] in Serum or PlasmaHigh0.0-0.5FParkwood HospitalC-Reactive Protein on 42-76-2601D-Reactive Protein1.7 mg/dLHigh0.0-0.5The [facility] Comment on above:Performed By: #### ESR, CK, ADDONUAPLUS, CMP, CRP, T4F, TSH3, CBC #### [facility] [address] #### ALDOLASE, CAMILLA SERUM, SPE, CAMILLA,URINE, UPE RAND #### [facility] ,CARCINOEMBRYONIC ANTIGENon 47-34-9147WIKIResearch Medical Center-Brookside CampusCEA ser/plasOrdered By: Blake Hinojosa on 07-59-3378Qrwbadcupqrfkuaz Ag [Mass/Vol]Serum or plasma carcinoembryonic antigen measurement (mass/volume)0.0-3.0[facility] CenterComment on above:Serial tumor marker results determined by assays using different manufacturers or methods may not be comparable.[facility] Laboratory hydraulic hammer operator and method:RUSSELL UNICEL DXI, 2 SITE IMMUNOENZYMATIC SANDWICH ASSAY.Calcium [Mass/volume] in Serum or PlasmaOrdered By: Jesus Ayala on 17-38-8662Rmapfqh [Mass/Vol]9.8 mg/dLNormal8.6-10.3FParkwood HospitalComment on above:Performed By: #### ESR, CK, ADDONUAPLUS, CMP, CRP, T4F, TSH3, CBC #### [facility] [address] #### ALDOLASE, CAMILLA SERUM, SPE, CAMILLA,URINE, UPE RAND #### [facility] ,Calcium [Mass/Vol]Calcium [Mass/volume] in Serum or Plasma8.6-10.3FParkwood HospitalCancer Antigen 125on 66-47-7534Tsybch Antigen 62442.9 Normal0.0-38.1The [facility] Physician GroupComment on above:Result Comment: [employer] Electrochemiluminescence Immunoassay (ECLIA) Values obtained with different assay methods or kits cannot be used interchangeably. Results cannot be interpreted as absolute evidence of the presence or absence of malignant disease. Performed at: [address] [id number] Agency Sales Representative: Gabriel Whitman PhD, Phone: [phone] PERFORMED BY: [place] [address] PATHOLOGIST TOOLROOM CLERK ANAHY MCKEE M.D.Performed By: #### CEA #### [facility] [address] [place] [address] #### CA125 #### [facility] ,Carbon dioxide, total [Moles/volume] in Serum or PlasmaOrdered By: Jesus Ayala on 19-61-7312JA5 [Moles/Vol]24.6 mmol/PMqlzzd08.0-31.0[facility] CenterComment on above:Performed By: #### ESR, CK, ADDONUAPLUS, CMP, CRP, T4F, TSH3, CBC #### [facility] [address] [place] [address] #### ALDOLASE, CAMILLA SERUM, SPE, CAMILLA,URINE, UPE RAND #### [facility] ,CO2 [Moles/Vol]Carbon dioxide, total [Moles/volume] in Serum or Vigfiy23.0-31.0 [facility] CenterChloride [Moles/volume] in Serum or Plasma Ordered By: Jesus Ayala on 54-69-7274Letvahcu [Moles/Vol]105 mmol/LNormal 98-107[facility] Medical CenterComment on above:Performed By: #### ESR, CK, ADDONUAPLUS, CMP, CRP, T4F, TSH3, CBC #### [address] #### ALDOLASE, CAMILLA SERUM, SPE, CAMILLA,URINE, UPE RAND #### [facility] ,Chloride [Moles/Vol]Chloride [Moles/volume] in Serum or Icmetj04-867IfvubgaxgAdena Fayette Medical CenterColor Auto (U)Ordered By: Jeuss Ayala on 08-02-2024 Color (U)Color of Urine by AutoYellowAdena Fayette Medical CenterColor of Urine by AutoOrdered By: Jesus Ayala on 03-99-4619Bqsja (U)Light-yellowNormal [facility]len[facility] HospitalComment on above:Order Comment: Name Collection Type:: Clean-Voided MidstreamPerformed By: #### ESR, CK, ADDONUAPLUS, CMP, CRP, T4F, TSH3, CBC #### [address] #### ALDOLASE, CAMILLA SERUM, SPE, CAMILLA,URINE, UPE RAND #### [facility] ,Complete Blood Count Auto Diffon 57-08-4216Nqab Corpuscular HGB Conc33.5 g/dL Fpdbtd32.0-35.0The [facility] Physician GroupComment on above:Performed By: #### CEA #### [place] [address] [place] #### CA125 #### [facility] ,NRBC%0.1 /100{WBC}Normal0-0.5The [facility] Physician GroupComment on above: Performed By: #### CEA #### [place] [address] [place] #### CA125 #### [facility] ,Comprehensive Metabolic Panelon 75-82-0027Jsjechm [Mass/Vol]4.3 g/dLNormal 3.5-5.7The [facility] Physician GroupComment on above:Performed By: #### ESR, CK, ADDONUAPLUS, CMP, CRP, T4F, TSH3, CBC #### [facility] [address] [place] [address] #### ALDOLASE, CAMILLA SERUM, SPE, CAMILLA,URINE, UPE RAND #### [facility] ,GFR/1.73 sq M.predicted MDRD (S/P/Bld) [Vol rate/Area]mL/min/{1.73_m2}NormalThe [facility] Physician GroupComment on above:Performed By: #### ESR, CK, ADDONUAPLUS, CMP, CRP, T4F, TSH3, CBC #### [address] #### ALDOLASE, CAMILLA SERUM, SPE, CAMILLA,URINE, UPE RAND #### [facility] ,Creatine kinase [Enzymatic activity/volume] in Serum or PlasmaOrdered By: Jesus Aayla on 76-76-5002DC [Catalytic activity/Vol]39 U/KWjsuja47-577 [facility] CenterComment on above:Result Comment: PERFORMED BY: [place] [address] PATHOLOGIST TOOLROOM CLERK ANAHY MCKEE M.D.Performed By: #### ESR, CK, ADDONUAPLUS, CMP, CRP, T4F, TSH3, CBC #### [address] #### ALDOLASE, CAMILLA SERUM, SPE, CAMILLA,URINE, UPE RAND #### [facility] ,CK [Catalytic activity/Vol]Creatine kinase [Enzymatic activity/volume] in Serum or Ypmres08-364AfhbldaoyAdena Fayette Medical CenterCreatinine [Mass/volume] in Serum or PlasmaOrdered By: Jesus Ayala on 88-43-0638Btdbltxpim [Mass/Vol]1.10 mg/dLNormal0.60-1.20[facility] CenterComment on above:Performed By: #### ESR, CK, ADDONUAPLUS, CMP, CRP, T4F, TSH3, CBC #### [address] #### ALDOLASE, CAMILLA SERUM, SPE, CAMILLA,URINE, UPE RAND #### [facility] ,Creatinine [Mass/Vol]Creatinine [Mass/volume] in Serum or Plasma0.60-1.20 [facility] CenterDipstick and Microscopicon 08-02-2024 Bacteria,UrineNone SeenNormalNone SeenKeralty Hospital Miami Physician GroupComment on above:Order Comment: Name Collection Type:: Clean-Voided MidstreamPerformed By: #### ESR, CK, ADDONUAPLUS, CMP, CRP, T4F, TSH3, CBC #### [address] #### ALDOLASE, CAMILLA SERUM, SPE, CAMILLA,URINE, UPE RAND #### [facility] ,Bilirubin,UrineNegativeNormalNegativeThe [facility] Physician GroupComment on above:Order Comment: Name Collection Type:: Clean-Voided MidstreamPerformed By: #### ESR, CK, ADDONUAPLUS, CMP, CRP, T4F, TSH3, CBC #### [address] #### ALDOLASE, CAMILLA SERUM, SPE, CAMILLA,URINE, UPE RAND #### [facility] ,Glucose Ql (U)50 mg/dLHunt Memorial HospitalalThSt. Luke's [facility] Center Physician GroupComment on above: Order Comment: Name Collection Type:: Clean-Voided MidstreamPerformed By: #### ESR, CK, ADDONUAPLUS, CMP, CRP, T4F, TSH3, CBC #### [address] #### ALDOLASE, CAMILLA SERUM, SPE, CAMILLA,URINE, UPE RAND #### [facility] ,Hyaline Casts,Kpxji8-3Ykazrd5-6Bcg [facility] Physician GroupComment on above: Order Comment: Name Collection Type:: Clean-Voided MidstreamResult Comment: PERFORMED BY: [place] [address] PATHOLOGIST TOOLROOM CLERK ANAHY MCKEE M.D.Performed By: #### ESR, CK, ADDONUAPLUS, CMP, CRP, T4F, TSH3, CBC #### [address] #### ALDOLASE, CAMILLA SERUM, SPE, CAMILLA,URINE, UPE RAND #### [facility] ,Nitrite,UrineNegativeNormalNegativeThe [facility] Physician GroupComment on above:Order Comment: Name Collection Type:: Clean-Voided MidstreamPerformed By: #### ESR, CK, ADDONUAPLUS, CMP, CRP, T4F, TSH3, CBC #### [address] #### ALDOLASE, CAMILLA SERUM, SPE, CAMILLA,URINE, UPE RAND #### [facility] ,Occult Blood,UrineNegativeNormalNegativeThe [facility] Physician GroupComment on above:Order Comment: Name Collection Type:: Clean-Voided MidstreamPerformed By: #### ESR, CK, ADDONUAPLUS, CMP, CRP, T4F, TSH3, CBC #### [address] #### ALDOLASE, CAMILLA SERUM, SPE, CAMILLA,URINE, UPE RAND #### [facility] ,Protein,UrineNegativeNormalNegativeThe [facility] Physician GroupComment on above:Order Comment: Name Collection Type:: Clean-Voided MidstreamPerformed By: #### ESR, CK, ADDONUAPLUS, CMP, CRP, T4F, TSH3, CBC #### [address] #### ALDOLASE, CAMILLA SERUM, SPE, CAMILLA,URINE, UPE RAND #### [facility] ,RBC,Wjjkg4-5Odjmgb8-6Kxx [facility] Physician GroupComment on above:Order Comment: Name Collection Type:: Clean-Voided MidstreamPerformed By: #### ESR, CK, ADDONUAPLUS, CMP, CRP, T4F, TSH3, CBC #### [address] #### ALDOLASE, CAMILLA SERUM, SPE, CAMILLA,URINE, UPE RAND #### [facility] ,Specificy [place],Urine1.717Flyiqm5.001-1.030The [facility] Comment on above:Order Comment: Name Collection Type:: Clean-Voided Midstream Performed By: #### ESR, CK, ADDONUAPLUS, CMP, CRP, T4F, TSH3, CBC #### [address] #### ALDOLASE, CAMILLA SERUM, SPE, CAMILLA,URINE, UPE RAND #### [facility] ,Squamous Epithelial Cell,Nccud6-3Cwax8-2Szi [facility] Physician GroupComment on above:Order Comment: Name Collection Type:: Clean-Voided MidstreamPerformed By: #### ESR, CK, ADDONUAPLUS, CMP, CRP, T4F, TSH3, CBC #### [address] #### ALDOLASE, CAMILLA SERUM, SPE, CAMILLA,URINE, UPE RAND #### [facility] ,Urobilinogen,UrineNormalNormalNormalThe [facility] Physician GroupComment on above:Order Comment: Name Collection Type:: Clean-Voided MidstreamPerformed By: #### ESR, CK, ADDONUAPLUS, CMP, CRP, T4F, TSH3, CBC #### [place] [address] [place] #### ALDOLASE, CAMILLA SERUM, SPE, CAMILLA,URINE, UPE RAND #### [facility] ,WBC,Pgskc2-6Wqlrxl2-0Mtx [facility] Physician GroupComment on above:Order Comment: Name Collection Type:: Clean-Voided MidstreamPerformed By: #### ESR, CK, ADDONUAPLUS, CMP, CRP, T4F, TSH3, CBC #### [facility] [address] [place] [address] #### ALDOLASE, CAMILLA SERUM, SPE, CAMILLA,URINE, UPE RAND #### [facility] ,Eosinophils Auto (Bld) [#/Vol]Ordered By: Jesus Ayala on 08-02-2024 Eosinophils (Bld) [#/Vol]Automated eosinophil count0.0-0.45[facility] CenterEosinophils/100 WBC Auto (Bld)Ordered By: Jesus Ayala on 45-27-8713Xpuwnguhora/100 WBC (Bld)Automated eosinophil %.[facility] CenterErythrocyte Sedimentation Rateon 79-69-2179ZKP (Bld) [Velocity]73 mm/hHigh0-19The [facility] Physician GroupComment on above:Result Comment: PERFORMED BY: [place] [address] PATHOLOGIST TOOLROOM CLERK ANAHY MCKEE M.D.Performed By: #### CEA #### [facility] [address] [place] [address] [place] #### CA125 #### [facility] ,Erythrocyte distribution width Auto (RBC) [Ratio]Ordered By: Jesus Ayala on 04-31-4326Cvairvvgyoy distribution width (RBC) [Ratio]Erythrocyte distribution width [Ratio] by Automated fxgsaVbas74.9-15.3FParkwood Hospital Erythrocyte distribution width [Ratio] by Automated countOrdered By: Jesus Ayala on 44-74-1241Dhetgkxgqbv distribution width (RBC) [Ratio]15.7 %High 11.9-15.3FParkwood HospitalComment on above:Performed By: #### CEA #### [place] [address] [place] #### CA125 #### [facility] ,Erythrocyte sedimentation rate by Photometric methodOrdered By: Jesus Ayala on 47-40-4679BFA Photometric method (Bld) [Velocity]73 mm/hrHigh0-[facility] CenterESR Photometric method (Bld) [Velocity]Erythrocyte sedimentation rate by Photometric methodHigh0-[facility] Medical CenterErythrocytes [#/area] in Urine sediment by Automated countOrdered By: Jesus Ayala on 88-21-5267WDN Auto (Urine sed) [#/Area]3-4 [HPF]0-4FParkwood HospitalErythrocytes [#/volume] in Blood by Automated count Ordered By: Jesus Ayala on 33-64-4216JMQ (Bld) [#/Vol]4.37 10*6/uLNormal 3.60-5.00[facility] CenterComment on above:Performed By: #### CEA #### [facility] [address] [place] [address] #### CA125 #### [facility] ,Globulin Calc (S) [Mass/Vol]Ordered By: Jesus Ayala on 68-16-0706Zmmpiwkd (S) [Mass/Vol]Serum globulin measurement by calculation (mass/volume)[facility] CenterGlucose [Mass/volume] in Serum or PlasmaOrdered By: Jesus Ayala on 22-87-4156Yvgbiwu [Mass/Vol]146 mg/qLHdib74-348AuxdjvdvrAdena Fayette Medical CenterComment on above:ADA recommended reference rangeRandom [...] ADDONUAPLUS, CMP, CRP, T4F, TSH3, CBC #### [facility] [address] [place] [address] [place] #### ALDOLASE, CAMILLA SERUM, SPE, CAMILLA,URINE, UPE RAND #### [facility] ,Glucose [Mass/Vol]Glucose [Mass/volume] in Serum or LgnrwfMemu94-283FxhzakdazAdena Fayette Medical CenterComment on above:ADA recommended reference rangeRandom Glucose Reference Range is dependent on time and content of last meal. Glucose of more than 200 mg/dL in a nonstressed, ambulatory subject supports the diagnosisof Diabetes Mellitus.Glucose [Mass/volume] in Urine by Test strip Ordered By: Jesus Ayala on 69-05-3228Zgovyeb Test strip (U) [Mass/Vol]50 mg/dLSalem Regional Medical CenterGlucose Test strip (U) [Mass/Vol]Glucose [Mass/volume] in Urine by Test stripSalem Regional Medical CenterHematocrit Auto (Bld) [Volume fraction]Ordered By: Jesus Ayala on 09-73-9867Oiqkhgrwpb (Bld) [Volume fraction]Hematocrit [Volume Fraction] of Blood by Automated count34.0-46.4FParkwood Hospital Hematocrit [Volume Fraction] of Blood by Automated countOrdered By: Jesus Ayala on 91-08-5336Tmrmjyzrsw (Bld) [Volume fraction]37.0 %Ktcopk89.0-46.4 [facility] CenterComment on above:Performed By: #### CEA #### [place] [address] [place] #### CA125 #### [facility] ,Hemoglobin Test strip Ql (U)Ordered By: Jesus Ayala on 19-48-0121Yzwgflvjnw Ql (U)NegativeNegPremier Health Atrium Medical CenterHemoglobin Ql (U) Hemoglobin [Presence] in Urine by Test stripNegPremier Health Atrium Medical CenterHemoglobin [Mass/volume] in BloodOrdered By: Jesus Ayala on 08-02-2024 Hemoglobin (Bld) [Mass/Vol]12.4 g/vGIntqwz65.8-15.4FParkwood HospitalComment on above:Performed By: #### CEA #### [place] [address] [place] #### CA125 #### [facility] ,Hemoglobin (Bld) [Mass/Vol]Hemoglobin [Mass/volume] in Blood11.8-15.4FParkwood HospitalImmunofixation for UrineOrdered By: Jesus Ayala on 14-57-0830Hpedhbucrycxvr Immunofixation (U) [Interp]Immunofixation for Urine. [facility] CenterComment on above:No monoclonality detected.Performed at: [facility] [employer] [id number] Director: Gabriel Whitman PhD, Phone: [phone], (CAMILLA), Urineon 90-83-1025Cskevlyfsplbgl, (CAMILLA), UrineCommentNormal.The [facility] Physician GroupComment on above:Result Comment: No monoclonality detected. Performed at: [facility] [employer] [id number] Agency Sales Representative: Gabriel Whitman PhD, Phone: [phone] By: #### CEA #### [place] [address] [place] #### CA125 #### [facility] ,Immunofixation,Serumon 00-68-2701Smatgbenrfgaiv, SerumCommentNormal.The [facility] Physician GroupComment on above:Result Comment: No monoclonality detected.Performed By: #### CEA #### [facility] [address] [place] [address] [place] #### CA125 #### [facility] ,Immunoglobulin A, Zguja314 mg/lDQcfool15-120Tbt [facility] Comment on above:Performed By: #### CEA #### [facility] [address] [place] [address] [place] #### CA125 #### [facility] ,Immunoglobulin G1357 mg/nPYgagvu807-3500Epm [facility] Physician GroupComment on above:Performed By: #### CEA #### [facility] [address] [place] [address] [place] #### CA125 #### [facility] ,Immunoglobulin M, Serum94 mg/uQYentdv24-562Fyr [facility] Physician GroupComment on above:Result Comment: Performed at: - Lab[address] [id number] Agency Sales Representative: Gabriel Whitman PhD, Phone: [phone] By: #### CEA #### [facility] [address] [place] [address] #### CA125 #### [facility] ,Ketones Test strip Ql (U)Ordered By: Jesus Jamie on 21-94-2856Vsgtzjl Ql (U) Ketones [Presence] in Urine by Test stripNegPremier Health Atrium Medical CenterKetones [Presence] in Urine by Test stripOrdered By: Jesushelio Ayala on 37-87-5545Duglbjq Ql (U)NegativeNormHighland District Hospital Comment on above:Order Comment: Name Collection Type:: Clean-Voided Midstream Performed By: #### ESR, CK, ADDONUAPLUS, CMP, CRP, T4F, TSH3, CBC #### [facility] [address] [place] [address] [place] #### ALDOLASE, CAMILLA SERUM, SPE, CAMILLA,URINE, UPE RAND #### [facility] ,Laboratory - UrinalysisOrdered By: Jesus Jamie on 84-25-1223Ejqfhbj casts LM Ql (Urine sed)0-8 [LPF]0-8[facility] CenterLeukocyte esterase [Presence] in Urine by Test stripOrdered By: Jesus Jamie on 08-02-2024 Leukocyte esterase Test strip Ql (U)NegativeNormalNegPremier Health Atrium Medical CenterComment on above:Order Comment: Name Collection Type:: Clean- Voided MidstreamPerformed By: #### ESR, CK, ADDONUAPLUS, CMP, CRP, T4F, TSH3, CBC #### [facility] [address] [place] [address] [place] #### ALDOLASE, CAMILLA SERUM, SPE, CAMILLA,URINE, UPE RAND #### [facility] ,Leukocyte esterase Test strip Ql (U)Leukocyte esterase [Presence] in Urine by Test stripNegativeAdena Fayette Medical CenterLeukocytes [#/area] in Urine sediment by Automated countOrdered By: Jesus Gruberrow on 11-32-6294SLS Auto (Urine sed) [#/Area]3-4 [HPF]0-4FParkwood HospitalLeukocytes [#/volume] corrected for nucleated erythrocytes in Blood by Automated coun Ordered By: Jesus Ayala on 51-08-8134ZFZ corrected for nucl RBC Auto (Bld) [#/Vol]7.8 10*3/uL3.8-11.6FParkwood HospitalWBC corrected for nucl RBC Auto (Bld) [#/Vol]Leukocytes [#/volume] corrected for nucleated erythrocytes in Blood by Automated coun3.8-11.6FParkwood Hospital Leukocytes [#/volume] in Blood by Automated countOrdered By: Jesus Gruberrow on 48-38-3856ZDL (Bld) [#/Vol]7.8 10*3/uLNormal3.8-11.6FParkwood HospitalComment on above:Performed By: #### CEA #### [facility] [address] [place] [address] [place] #### CA125 #### [facility] ,Lymphocytes Auto (Bld) [#/Vol]Ordered By: Jesushelio Ayala on 08-02-2024 Lymphocytes (Bld) [#/Vol]Lymphocytes [#/volume] in Blood by Automated count 1.00-4.8[facility] CenterLymphocytes [#/volume] in Blood by Automated countOrdered By: Jesushelio Ayala on 81-56-5830Ofzuovfsyxg (Bld) [#/Vol] 1.2 10*3/uLNormal1.00-4.8[facility] CenterComment on above: Performed By: #### CEA #### [facility] [address] [place] [address] [place] #### CA125 #### [facility] ,Lymphocytes/100 WBC Auto (Bld)Ordered By: Jesus Ayala on 08-02-2024 Lymphocytes/100 WBC (Bld)Lymphocytes/100 leukocytes in Blood by Automated count. [facility] CenterLymphocytes/100 leukocytes in Blood by Automated countOrdered By: Jesus Ayala on 17-85-1701Lbsyhidacxo/100 WBC (Bld) 15.0 %Normal.[facility] CenterComment on above:Performed By: #### CEA #### [facility] [address] [place] [address] [place] #### CA125 #### [facility] ,MCH Auto (RBC) [Entitic mass]Ordered By: Jesus Ayala on 20-85-6035DUI (RBC) [Entitic mass]MCH [Entitic mass] by Automated count24.7-34.3FWVUMedicine [facility] [Entitic mass] by Automated countOrdered By: Jesus Ayala on 43-88-9533WFR (RBC) [Entitic mass]28.3 feUtozfx29.7-34.3FParkwood HospitalComment on above:Performed By: #### CEA #### [facility] [address] [place] [address] [place] #### CA125 #### [facility] ,MCHC Auto (RBC) [Mass/Vol]Ordered By: Jesus Ayala on 95-21-4223XWNY (RBC) [Mass/Vol]33.5 g/dL32.0-35.0[facility] Medical CenterHC (RBC) [Mass/Vol]MCHC [Mass/volume] by Automated count32.0-35.0[facility] CenterMCV Auto (RBC) [Entitic vol]Ordered By: Jesus Ayala on 99-16-6199BAZ (RBC) [Entitic vol]MCV [Entitic volume] by Automated -667 [facility] Medical CenterV [Entitic volume] by Automated countOrdered By: Jesus Ayala on 23-69-0345LDD (RBC) [Entitic vol]84.6 gONxrvtw01-396 [facility] CenterComment on above:Performed By: #### CEA #### [facility] [address] [place] [address] [place] #### CA125 #### [facility] ,Monocytes Auto (Bld) [#/Vol]Ordered By: Jesus Ayala on 78-55-7226Qbiexkdko (Bld) [#/Vol]Automated blood monocyte count0.0-0.8[facility] CenterMonocytes/100 WBC Auto (Bld)Ordered By: Jesus Ayala on 08-02-2024 Monocytes/100 WBC (Bld)Automated monocyte %.[facility] Neutrophils Auto (Bld) [#/Vol]Ordered By: Jesus Ayala on 08-02-2024 Neutrophils (Bld) [#/Vol]Neutrophils [#/volume] in Blood by Automated count 1.8-7.7FParkwood HospitalNeutrophils [#/volume] in Blood by Automated countOrdered By: Jesus Ayala on 74-40-8011Nsheqfadwcm (Bld) [#/Vol] 6.0 10*3/uLNormal1.8-7.7FParkwood HospitalComment on above: Performed By: #### CEA #### [facility] [address] [place] [address] [place] #### CA125 #### [facility] ,Neutrophils/100 WBC Auto (Bld)Ordered By: Jesus Ayala on 08-02-2024 Neutrophils/100 WBC (Bld)Automated neutrophil %.[facility] CenterNitrite Test strip Ql (U)Ordered By: Jesus Ayala on 89-69-1715Yupnvyl Ql (U)NegativeNegativeAdena Fayette Medical CenterNitrite Ql (U)Nitrite [Presence] in Urine by Test stripNegativeAdena Fayette Medical CenterNo Panel InformationOrdered By: Jesus Ayala on 67-03-6608Wkszbveqn GFR (CKD-EPI) > 60.0 mL/MinAdena Fayette Medical CenterPharmacy Creatinine Clearance (ChemN/AFParkwood HospitalProtein Electrophoresis M-SpikeNot observed g/dLNot ObservedAdena Fayette Medical CenterProtein Electrophoresis NoteComment.[facility] CenterComment on above: Protein electrophoresis scan will follow via computer,mail, or manager molecular delivery.Performed at: [address] [id number] Director: Gabriel Whitman PhD, Phone: [phone] Random Prot Electrophor NoteComment.[facility] CenterComment on above: Protein electrophoresis scan will follow via computer,mail, or manager molecular delivery. Nucleated erythrocytes [Presence] in Blood by Automated countOrdered By: Jesus Ayala on 25-89-8700Tygaqkkfp RBC Auto Ql (Bld)0.1 /100{WBC}0-0.5FParkwood HospitalNucleated RBC Auto Ql (Bld)Nucleated erythrocytes [Presence] in Blood by Automated count0-0.5FParkwood Hospital Platelet mean volume Auto (Bld) [Entitic vol]Ordered By: Jesus Ayala on 02-44-9702Tgnmcemf mean volume (Bld) [Entitic vol]Platelet mean volume [Entitic volume] in Blood by Automated count6.3-10.7FParkwood Hospital Platelet mean volume [Entitic volume] in Blood by Automated countOrdered By: Jesus Ayala on 36-01-6590Pnsonlus mean volume (Bld) [Entitic vol]6.6 fLNormal 6.3-10.7FParkwood HospitalComment on above:Performed By: #### CEA #### [facility] [address] [place] [address] #### CA125 #### [facility] ,Platelets Auto (Bld) [#/Vol]Ordered By: Jesus Ayala on 11-35-3847Qkdzuotny (Bld) [#/Vol]Platelets [#/volume] in Blood by Automated -126VskmoowyrAdena Fayette Medical CenterPlatelets [#/volume] in Blood by Automated countOrdered By: Jesus Ayala on 16-91-4334Sfggvlulv (Bld) [#/Vol]439 10*3/yGFozsgg856-410 [facility] CenterComment on above:Performed By: #### CEA #### [place] [address] [place] #### CA125 #### [facility] ,Potassium [Moles/volume] in Serum or PlasmaOrdered By: Jesus Ayala on 68-11-8373Qibwoqzmi [Moles/Vol]3.8 mmol/LNormal3.5-5.1FParkwood HospitalComment on above:Performed By: #### ESR, CK, ADDONUAPLUS, CMP, CRP, T4F, TSH3, CBC #### [address] #### ALDOLASE, CAMILLA SERUM, SPE, CAMILLA,URINE, UPE RAND #### [facility] ,Potassium [Moles/Vol]Potassium [Moles/volume] in Serum or Plasma3.5-5.1 [facility] CenterProtein Electro, Random Urineon 08-02-2024 Albumin, Urine36.1 %Normal.The [facility] Physician GroupComment on above: Performed By: #### CEA #### [place] [address] [place] #### CA125 #### [facility] ,Nbmgt-0-Lqynylkk, Urine4.1 %Normal.The [facility] Physician GroupComment on above:Performed By: #### CEA #### [place] [address] [place] #### CA125 #### [facility] ,Rtpsy-9-Jykfijzd, Urine18.4 %Normal.The [facility] Physician GroupComment on above:Performed By: #### CEA #### [place] [address] [place] #### CA125 #### [facility] ,Beta Globulin, Urine24.3 %Normal.The [facility] Physician GroupComment on above: Performed By: #### CEA #### [place] [address] [place] #### CA125 #### [facility] ,Gamma Globulin, Urine17.1 %Normal.The [facility] Physician GroupComment on above:Performed By: #### CEA #### [place] [address] [place] #### CA125 #### [facility] ,M-Maury %Not ObservedNormalNot ObservedThe [facility] Physician GroupComment on above:Performed By: #### CEA #### [place] [address] [place] #### CA125 #### [facility] ,Please Note:CommentNormal.The [facility] Physician GroupComment on above:Result Comment: Protein electrophoresis scan will follow via computer, mail, or manager molecular delivery. PERFORMED BY: [place] [address] PATHOLOGIST TOOLROOM CLERK ANAHY MCKEE M.D.Performed By: #### CEA #### [place] [address] [place] #### CA125 #### [facility] ,Protein (U) [Mass/Vol]9.0 mg/dLNormalNot Estab.[facility] Comment on above:Performed By: #### CEA #### [place] [address] [place] #### CA125 #### [facility] ,Protein Electrophoresis, Serumon 63-48-4871Cptmdso [Mass/Vol]3.9 g/dLNormal 2.9-4.4The [facility] Physician GroupComment on above:Performed By: #### CEA #### [place] [address] [place] #### CA125 #### [facility] ,Albumin/Globulin [Mass ratio]1.1 {ratio}Normal0.7-1.7The [facility] Physician GroupComment on above:Performed By: #### CEA #### [place] [address] [place] #### CA125 #### [facility] ,Oclyb-2-Rkjgyysv6.2 g/dLNormal0.0-0.4The [facility] Physician GroupComment on above:Performed By: #### CEA #### [facility] [address] [place] [address] [place] #### CA125 #### [facility] ,Uktkz-2-Xrowfimy6.0 g/dLNormal0.4-1.0The [facility] Physician GroupComment on above:Performed By: #### CEA #### [facility] [address] [place] [address] [place] #### CA125 #### [facility] ,Beta Globulin1.2 g/dLNormal0.7-1.3The [facility] Physician GroupComment on above:Performed By: #### CEA #### [facility] [address] [place] [address] [place] #### CA125 #### [facility] ,Gamma Globulin1.3 g/dLNormal0.4-1.8The [facility] Physician GroupComment on above:Performed By: #### CEA #### [facility] [address] [place] [address] [place] #### CA125 #### [facility] ,Globulin (S) [Mass/Vol]3.6 g/dLNormal2.2-3.9The [facility] Comment on above:Performed By: #### CEA #### [facility] [address] [place] [address] [place] #### CA125 #### [facility] ,M-SpikeNot ObservedNormalNot ObservedThe [facility] Physician GroupComment on above:Performed By: #### CEA #### [place] [address] [place] #### CA125 #### [facility] ,SPE-NoteCommentNormal.The [facility] Physician GroupComment on above:Result Comment: Protein electrophoresis scan will follow via computer, mail, or manager molecular delivery. Performed at: [facility] [address], [place], [place] [id number] Agency Sales Representative: Gabriel Whitman PhD, Phone: [phone] PERFORMED BY: [place] [address] PATHOLOGIST TOOLROOM CLERK ANAHY MCKEE M.D.Performed By: #### CEA #### [address] #### CA125 #### [facility] ,Protein Test strip (U) [Mass/Vol]Ordered By: Jesus Ayala on 08-02-2024 Protein (U) [Mass/Vol]NegativeNegativeAdena Fayette Medical CenterProtein (U) [Mass/Vol]Protein [Mass/volume] in Urine by Test stripNegativeAdena Fayette Medical CenterProtein [Mass/volume] in Serum or PlasmaOrdered By: Jesus Ayala on 66-67-2944[place] [Mass/Vol]7.5 g/dLNormal6.0-8.5FParkwood HospitalComment on above:Performed By: #### ESR, CK, ADDONUAPLUS, CMP, CRP, T4F, TSH3, CBC #### [address] #### ALDOLASE, CAMILLA SERUM, SPE, CAMILLA,URINE, UPE RAND #### [facility] ,Performed By: #### CEA #### [address] #### CA125 #### [facility] ,Protein [Mass/Vol]Protein [Mass/volume] in Serum or Plasma6.0-8.5FParkwood HospitalRBC Auto (Bld) [#/Vol]Ordered By: Jesus Ayala on 41-65-9879WAR (Bld) [#/Vol]Erythrocytes [#/volume] in Blood by Automated count 3.60-5.00[facility] Andersonerum aldolase measurementOrdered By: Jesus Ayala on 15-88-4918HK biopsyCT biopsy3.3-10.3FParkwood HospitalComment on above:Performed at: - [address] [id number] Director: Gabriel Whitman PhD, Phone: [phone] globulin measurement (mass/volume)Ordered By: Jesus Ayala on 08-02-2024 Globulin (S) [Mass/Vol]Serum globulin measurement (mass/volume)2.2-3.9[facility] Andersonerum globulin measurement by calculation (mass/volume) Ordered By: Jesus Ayala on 39-15-5135Gshlxicm (S) [Mass/Vol]3.2 g/dLNormal [facility] CenterComment on above:Performed By: #### ESR, CK, ADDONUAPLUS, CMP, CRP, T4F, TSH3, CBC #### [facility] [address] #### ALDOLASE, CAMILLA SERUM, SPE, CAMILLA,URINE, UPE RAND #### [facility] ,Serum immunofixation electrophoresisOrdered By: Jesus Ayala on 08-02-2024 Serum ImmunofixationComment.[facility] CenterComment on above:No monoclonality detected.Serum or plasma IgA measurement (mass/volume)Ordered By: Jesus Ayala on 55-79-4826IwZ [Mass/Vol]IgA [Mass/volume] in Serum or Plasma 87-352[facility] Andersonerum or plasma IgG measurement (mass/volume)Ordered By: Jesus Ayala on 49-34-7107SnW [Mass/Vol]IgG [Mass/volume] in Serum or Aptidb474-9254MhvmkpsnsOur Lady of Mercy Hospital - Andersonerum or plasma IgM measurement (mass/volume)Ordered By: Jesus Ayala on 08-02-2024 IgM [Mass/Vol]IgM [Mass/volume] in Serum or Pultre09-907IzivchjsmAdena Fayette Medical CenterComment on above:Performed at: [employer] [facility] [place] [id number] [place], [place] [id number] Director: Gabriel Whitman PhD, Phone: [phone] Serum or plasma albumin measurement (mass/volume)Ordered By: Jesushelio Ayala on 52-31-0652Uurphmh [Mass/Vol]Albumin [Mass/volume] in Serum or Plasma2.9-4.4 [facility] Andersonerum or plasma albumin/globulin mass ratio Ordered By: Jesus Jamie on 54-88-4208Xxhhjpq/Globulin [Mass ratio]1.3 {ratio} NormalAdena Fayette Medical CenterComment on above:Performed By: #### ESR, CK, ADDONUAPLUS, CMP, CRP, T4F, TSH3, CBC #### [facility] [address] [place] [address] #### ALDOLASE, CAMILLA SERUM, SPE, CAMILLA,URINE, UPE RAND #### [facility] ,Albumin/Globulin [Mass ratio]Serum or plasma albumin/globulin mass ratio0.7-1.7 [facility] Andersonerum or plasma alpha 1 globulin measurement by electrophoresis (mass/volume)Ordered By: Jesus Ayala on 39-23-9425Dazud 1 globulin Elph [Mass/Vol]Serum or plasma alpha 1 globulin measurement by electrophoresis (mass/volume)0.0-0.4FLakeHealth Beachwood Medical Centererum or plasma alpha 2 globulin measurement by electrophoresis (mass/volume)Ordered By: Jesus Ayala on 37-15-4988Gxvdz 2 globulin Elph [Mass/Vol]Serum or plasma alpha 2 globulin measurement by electrophoresis (mass/volume)0.4-1.0[facility] Andersonerum or plasma anion gap determinationOrdered By: Jesus Ayala on 63-96-9129Ctlfg gap [Moles/Vol]12.2 mmol/LNormal6.0-15.0 [facility] CenterComment on above:Performed By: #### ESR, CK, ADDONUAPLUS, CMP, CRP, T4F, TSH3, CBC #### [facility] [address] [place] [address] [place] #### ALDOLASE, CAMILLA SERUM, SPE, CAMILLA,URINE, UPE RAND #### [facility] ,Anion gap [Moles/Vol]Serum or plasma anion gap determination6.0-15.0[facility] Andersonerum or plasma beta globulin measurement by electrophoresis (mass/volume)Ordered By: Jesus Ayala on 74-42-8012Rjhf globulin Elph [Mass/Vol]Serum or plasma beta globulin measurement by electrophoresis (mass/volume)0.7-1.3FLakeHealth Beachwood Medical Centererum or plasma cancer antigen 125 (CA-125) measurement (units/volume)Ordered By: Blake Hinojosa on 92-25-0021Naqnnn Ag 125 QnSerum or plasma cancer antigen 125 (CA-125) measurement (units/volume)0.0-38.1FParkwood HospitalComment on above:[employer] Electrochemiluminescence Immunoassay(ECLIA)Values obtained with different assay methods or kits cannotbe used interchangeably. Results cannot be interpreted asabsolute evidence of the presence or absence of malignantdisease.Performed at: [facility] [id number] Director: Gabriel Whitman PhD, Phone: [phone] or plasma carcinoembryonic antigen measurement (mass/volume)Ordered By: Blake Hinojosa on 38-11-0054Mqlygykkadgkfika Ag [Mass/Vol]1.0 ng/mL0.0-3.0[facility] CenterComment on above:Serial tumor marker results determined by assays using different manufacturers or methods may not be comparable.[facility] Laboratory hydraulic hammer operator and method:[employer] UNICEL DXI, 2 SITE IMMUNOENZYMATIC SANDWICH ASSAY.Serum or plasma gamma globulin measurement by electrophoresis (mass/volume)Ordered By: Jesus Ayala on 88-92-7066Cfbga globulin Elph [Mass/Vol]Serum or plasma gamma globulin measurement by electrophoresis (mass/volume)0.4-1.8[facility] - Andersonodium [Moles/volume] in Serum or PlasmaOrdered By: Jesus Ayala on 31-56-2330Wmsxgm [Moles/Vol]138 mmol/MEmficw567-807EpgrlubabAdena Fayette Medical CenterComment on above:Performed By: #### ESR, CK, ADDONUAPLUS, CMP, CRP, T4F, TSH3, CBC #### [facility] [address] [place] [address] #### ALDOLASE, CAMILLA SERUM, SPE, CAMILLA,URINE, UPE RAND #### [facility] ,Sodium [Moles/Vol]Sodium [Moles/volume] in Serum or Kwsvqv507-145CdqjcgqjyOur Lady of Mercy Hospital - Andersonpecific gravity Test strip (U) [Rel density]Ordered By: Jesus Ayala on 82-71-8510Euaemykt gravity (U) [Rel density]1.0131.001-1.030 [facility] - Andersonpecific gravity (U) [Rel density]Specific gravity of Urine by Test strip1.001-1.030[facility] Thyrotropin [Units/volume] in Serum or PlasmaOrdered By: Jesus Ayala on 81-87-3086WVF Qn2.77 m[IU]/LNormal0.45-5.33[facility] Comment on above:Result Comment: PERFORMED BY: [place] [address] PATHOLOGIST TOOLROOM CLERK ANAHY MCKEE M.D.Performed By: #### CEA #### [facility] [address] [place] [address] #### CA125 #### [facility] ,TSH QnThyrotropin [Units/volume] in Serum or Plasma0.45-5.33[facility] Medical CenterThyroxine (T4) free [Mass/volume] in Serum or PlasmaOrdered By: Jesus Ayala on 48-24-0900Oezc T4 [Mass/Vol]0.68 ng/dLNormal0.61-1.12[facility] Medical CenterComment on above:Performed By: #### ESR, CK, ADDONUAPLUS, CMP, CRP, T4F, TSH3, CBC #### [facility] [address] [place] [address] [place] #### ALDOLASE, CAMILLA SERUM, SPE, CAMILLA,URINE, UPE RAND #### [facility] ,Free T4 [Mass/Vol]Thyroxine (T4) free [Mass/volume] in Serum or Plasma0.61-1.12 [facility] CenterUrea nitrogen [Mass/volume] in Serum or Plasma Ordered By: Jesus Ayala on 19-25-8030Vunj nitrogen [Mass/Vol]14 mg/dLNormal 04-29[facility] Medical CenterComment on above:Performed By: #### ESR, CK, ADDONUAPLUS, CMP, CRP, T4F, TSH3, CBC #### [facility] [address] [place] [address] #### ALDOLASE, CAMILLA SERUM, SPE, CAMILLA,URINE, UPE RAND #### [facility] ,Urea nitrogen [Mass/Vol]Urea nitrogen [Mass/volume] in Serum or Plasma04-29 [facility] CenterUrine alpha 1 globulin/total protein by electrophoresisOrdered By: Jesus Ayala on 27-38-9960Ssprf 1 globulin Elph (U) [Mass fraction]Urine alpha 1 globulin/total protein by electrophoresis. [facility] Medical CenterUrine alpha 2 globulin/total protein ratio by electrophoresisOrdered By: Jesus Ayala on 61-67-2194Luijo 2 globulin Elph (U) [Mass fraction]Urine alpha 2 globulin/total protein ratio by electrophoresis. [facility] CenterUrine appearanceOrdered By: Jesus Ayala on 58-11-9471Ufmsfzjryo (U)ClearNormalClearAdena Fayette Medical CenterComment on above:Order Comment: Name Collection Type:: Clean-Voided MidstreamPerformed By: #### ESR, CK, ADDONUAPLUS, CMP, CRP, T4F, TSH3, CBC #### [facility] [address] [place] [address] [place] #### ALDOLASE, CAMILLA SERUM, SPE, CAMILLA,URINE, UPE RAND #### [facility] ,Urine bacteria detection by automated methodOrdered By: Jesus Ayala on 66-71-6404Wiicrsfd Auto Ql (U)Bacteria [Presence] in Urine by AutomatedNone Seen [facility] CenterUrine beta globulin measurement by electrophoresis (mass/volume)Ordered By: Jesus Ayala on 24-73-9372Yjxv globulin Elph (U) [Mass/Vol]Urine beta globulin measurement by electrophoresis (mass/volume).[facility] CenterUrine protein measurement (mass/volume)Ordered By: Jesus Ayala on 04-81-1611Nsnqkvo (U) [Mass/Vol] Protein [Mass/volume] in UrineNot Estab.[facility] Urobilinogen Test strip (U) [Mass/Vol]Ordered By: Jesus Ayala on 08-02-2024 Urobilinogen (U) [Mass/Vol]Normal mg/dLNormalAdena Fayette Medical Center Urobilinogen (U) [Mass/Vol]Urobilinogen [Mass/volume] in Urine by Test strip NormalAdena Fayette Medical CenterWBC Auto (Bld) [#/Vol]Ordered By: Jesus Ayala on 43-37-0389TWI (Bld) [#/Vol]Leukocytes [#/volume] in Blood by Automated count3.8-11.6FParkwood HospitalXR chest 2V*on 40-00-4569FO chest 2V*[facility] [place] [address] XRay Report Signed Patient: Mandeep Puri MR#: [id number] 15 : 1975 Acct:[id number] Age/Sex: 48 / F ADM Date: 08/02/24 Loc: XD Room: Type: [facility] Attending Dr: Jesus Ayala MD Copies [...] Trupti Adorno M.D.08/02/2024 4:18 PM Dictation Location: [place] [address] Transcribed By: [facility] 08/02/241617 Dictated By: Trupti Adorno MD 08/02/241616 Signed By: 08/02/24 1618[facility]ouppH Test strip (U)Ordered By: Jesus Ayala on 61-89-1477eX (U)pH of Urine by Test strip5.0-9.0[facility] CenterpH of Urine by Test stripOrdered By: Jesus Jamie on 55-46-4945iZ (U)7.0 [pH]Normal5.0-9.0[facility] CenterComment on above:Order Comment: Name Collection Type:: Clean-Voided MidstreamPerformed By: #### ESR, CK, ADDONUAPLUS, CMP, CRP, T4F, TSH3, CBC #### [facility] [address] #### ALDOLASE, CAMILLA SERUM, SPE, CAMILLA,URINE, UPE RAND #### [facility] ,ALL CBC WITH AUTO DIFFon 88-88-3967VFXDRZNHP ABSOLUTE SKKT2TWLH Healthcare Basophils/100 WBC (Bld)0.5 %0.2 - 2.0 %[facility]OMS HealthcareEosinophils/100 WBC (Bld) 2.9 %0.9 - 7.0 %[facility]OM[facility] HealthcareErythrocyte distribution width (RBC) [Ratio]14.4 %11.0 - 15.0 %[facility] HealthcareHematocrit (Bld) [Volume fraction]35.2 %Low36.0 - 48.0 %[facility] HealthcareHemoglobin (Bld) [Mass/Vol]11.4 g/dLLow12.0 - 16.0 g/dLNOAL HealthcareIMMATURE GRANULOCYTES ABS AUTO0.06HighNOAL HealthcareImmature granulocytes/100 WBC (Bld)0.7 %High0.0 - 0.5 %[facility]OM[facility] HealthcareInterpretation and review of laboratory resultsAbnormalNOAL HealthcareLYMPHOCYTES ABSOLUTE AUTO1.1 LowNOMS HealthcareLymphocytes/100 WBC (Bld)14 %Low20.5 - 60.0 %[facility] MCH (RBC) [Entitic mass]28 pg26.7 - 34.0 pgNOSoutheast Missouri HospitalMCHC (RBC) [Mass/Vol] 32.4 g/dL29.9 - 35.2 g/dLNOSoutheast Missouri HospitalMCV (RBC) [Entitic vol]86.5 fL81.0 - 99.0 fLResearch Medical Center-Brookside CampusMONOCYTES ABSOLUTE AUTO0.4NOAL HealthcareMonocytes/100 WBC (Bld)5 %1.7 - 12.0 %NOMSaint John'S Aurora Community HospitalNEUTROPHILS ABSOLUTE AUTO6.3NOSoutheast Missouri Hospital Neutrophils/100 WBC (Bld)76.9 %High43.0 - 75.0 %[facility] Center-Brookside CampusPlatelet mean volume (Bld) [Entitic vol]8.3 fLLow9.5 - 13.5 fLResearch Medical Center-Brookside CampusTBH EO #0.2NOMS [facility] LNP505SUXKThe [facility] Institute [facility] RBC4.07LowNOThe [facility] Institute [facility] [place] WBC8.2NOMS [facility] HospitalCLINISYNCNRipley County Memorial HospitalALL CBC WITH AUTO DIFFon 65-43-7209QVSDQVDAW ABSOLUTE AUTO0.0NOSoutheast Missouri HospitalBasophils/100 WBC (Bld)0.4 %0.2 - 2.0 %NOM[facility] HealthcareEosinophils/100 WBC (Bld)2.4 %0.9 - 7.0 %[facility]-Brookside CampusErythrocyte distribution width (RBC) [Ratio]15.5 %High11.0 - 15.0 %[facility]-Brookside CampusHematocrit (Bld) [Volume fraction]37.7 %36.0 - 48.0 %[facility]okside CampusHemoglobin (Bld) [Mass/Vol]11.9 g/dLLow12.0 - 16.0 g/dLResearch Medical Center-Brookside CampusIMMATURE GRANULOCYTES ABS AUTO0.03NOSoutheast Missouri HospitalImmature granulocytes/100 WBC (Bld)0.4 %0.0 - 0.5 %[facility]okside CampusInterpretation and review of laboratory resultsAbnormalResearch Medical Center-Brookside Campus LYMPHOCYTES ABSOLUTE AUTO1.1LowNRipley County Memorial HospitalLymphocytes/100 WBC (Bld)14.8 %Low 20.5 - 60.0 %[facility]right Memorial HospitalH (RBC) [Entitic mass]27.9 pg26.7 - 34.0 pgWright Memorial HospitalHC (RBC) [Mass/Vol]31.6 g/dL29.9 - 35.2 g/dLWright Memorial HospitalV (RBC) [Entitic vol]88.3 fL81.0 - 99.0 fLResearch Medical Center-Brookside CampusMONOCYTES ABSOLUTE AUTO0.4NOSoutheast Missouri HospitalMonocytes/100 WBC (Bld)5.1 %1.7 - 12.0 %[facility]ok[facility] CampusNEUTROPHILS ABSOLUTE AUTO5.7NOMS HealthcareNeutrophils/100 WBC (Bld)76.9 %High43.0 - 75.0 % [facility]ok[facility] CampusPlatelet mean volume (Bld) [Entitic vol]8.6 fLLow9.5 - 13.5 fL [facility]ok[facility] CampusTBH EO #0.2NOMS [facility]vue HospitalTB [id number] [facility] RBC4.27 NOMWestern Missouri Mental Health Center WBC7.5NOSoutheast Missouri HospitalCLINISYNCNRipley County Memorial HospitalALL CBC WITH AUTO DIFFon 69-83-7177QTGTCMAKY ABSOLUTE AUTO0.0NOSoutheast Missouri HospitalBasophils/100 WBC (Bld)0.5 %0.2 - 2.0 %[facility]ok[facility] CampusEosinophils/100 WBC (Bld)3.0 %0.9 - 7.0 % [facility]-Brookside CampusErythrocyte distribution width (RBC) [Ratio]15.9 %High11.0 - 15.0 %[facility]okside CampusHematocrit (Bld) [Volume fraction]36.3 %36.0 - 48.0 %[facility]ok[facility] CampusHemoglobin (Bld) [Mass/Vol]11.8 g/dLLow12.0 - 16.0 g/dLResearch Medical Center-Brookside Campus IMMATURE GRANULOCYTES ABS AUTO0.04HighResearch Medical Center-Brookside CampusImmature granulocytes/100 WBC (Bld)0.5 %0.0 - 0.5 %[facility]ok[facility] CampusInterpretation and review of laboratory resultsAbnormalResearch Medical Center-Brookside CampusLYMPHOCYTES ABSOLUTE AUTO1.2NOMS [facility] Lymphocytes/100 WBC (Bld)14.0 %Low20.5 - 60.0 %Wright Memorial HospitalH (RBC) [Entitic mass]28.0 pg26.7 - 34.0 pgWright Memorial HospitalHC (RBC) [Mass/Vol]32.5 g/dL29.9 - 35.2 g/dLWright Memorial HospitalV (RBC) [Entitic vol]86.0 fL81.0 - 99.0 fLResearch Medical Center-Brookside CampusMONOCYTES ABSOLUTE AUTO0.5NOSoutheast Missouri HospitalMonocytes/100 WBC (Bld)5.7 % 1.7 - 12.0 %[facility]ok[facility] CampusNEUTROPHILS ABSOLUTE AUTO6.4NOSoutheast Missouri Hospital Neutrophils/100 WBC (Bld)76.3 %High43.0 - 75.0 %NOMS HealthcarePlatelet mean volume (Bld) [Entitic vol]8.6 fLLow9.5 - 13.5 fLNOMS HealthcareTBH EO #0.3NOMS HealthcareTBH TFL088RYEW HealthcareTBH RBC4.22NOMS HealthcareTBH WBC8.4NOMS HealthcareCLINISYNCNOMS HealthcareAlanine aminotransferase [Enzymatic activity/volume] in Serum or PlasmaOrdered By: Perri Ceja on 78-04-8232WVY [Catalytic activity/Vol]20 U/L7-52[facility] CenterAlbumin [Mass/volume] in Serum or Plasma by Bromocresol green (BCG) dye binding metho Ordered By: Perri Ceja on 95-75-4134Gqtjxtp BCG dye [Mass/Vol]4.7 g/dL 3.5-5.7FParkwood HospitalAlkaline phosphatase [Enzymatic activity/volume] in Serum or PlasmaOrdered By: Perri Ceja on 46-73-1394LYN [Catalytic activity/Vol]96 U/S09-791JgoivjrveAdena Fayette Medical CenterAspartate aminotransferase [Enzymatic activity/volume] in Serum or PlasmaOrdered By: Perri Ceja on 18-47-6333ZAD [Catalytic activity/Vol]16 U/W12-87KkmwiozltAdena Fayette Medical CenterBasophils Auto (Bld) [#/Vol]Ordered By: Perri Ceja on 38-34-6938Nxfvankue (Bld) [#/Vol]0.1 10*3/uL0.0-0.2FParkwood HospitalBasophils/100 WBC Auto (Bld)Ordered By: Perri Ceja on 11-06-2023 Basophils/100 WBC (Bld)0.7 %.[facility] CenterBilirubin.total [Mass/volume] in Serum or PlasmaOrdered By: Perri Ceja on 11-06-2023 Bilirubin [Mass/Vol]0.4 mg/dL0.3-1.0[facility] CenterC reactive protein [Mass/volume] in Serum or PlasmaOrdered By: Perri Ceja on 11-06-2023 CRP [Mass/Vol]2.0 mg/dL0.0-0.5FParkwood HospitalCalcium [Mass/volume] in Serum or PlasmaOrdered By: Perri Ceja on 35-45-6811Osbifzb [Mass/Vol]10.3 mg/dL8.6-10.3FParkwood HospitalCarbon dioxide, total [Moles/volume] in Serum or PlasmaOrdered By: Perri Ceja on 11-06-2023 CO2 [Moles/Vol]26.1 mmol/L21.0-31.0[facility] CenterChloride [Moles/volume] in Serum or PlasmaOrdered By: Perri Ceja on 11-06-2023 Chloride [Moles/Vol]104 mmol/R93-333XlwedeluwAdena Fayette Medical CenterCreatine kinase [Enzymatic activity/volume] in Serum or PlasmaOrdered By: Perri Ceja on 87-75-2520LV [Catalytic activity/Vol]30 U/W51-232CrxntbwljAdena Fayette Medical CenterCreatinine [Mass/volume] in Serum or PlasmaOrdered By: Perri Ceja on 57-63-7071Okvnakwrip [Mass/Vol]1.17 mg/dL0.60-1.20[facility] CenterEosinophils Auto (Bld) [#/Vol]Ordered By: Perri Ceja on 11-06-2023 Eosinophils (Bld) [#/Vol]0.3 10*3/uL0.0-0.45[facility] Eosinophils/100 WBC Auto (Bld)Ordered By: Perri Ceja on 11-06-2023 Eosinophils/100 WBC (Bld)3.0 %.[facility] CenterErythrocyte distribution width Auto (RBC) [Ratio]Ordered By: Perri Ceja on 11-06-2023 Erythrocyte distribution width (RBC) [Ratio]15.3 %11.9-15.3FParkwood HospitalErythrocyte sedimentation rate by Photometric methodOrdered By: Perri Ceja on 80-88-4305HUM Photometric method (Bld) [Velocity]49 mm/hr0-19 [facility] CenterGlobulin Calc (S) [Mass/Vol]Ordered By: Perri Ceja on 62-11-8268Kabyqtug (S) [Mass/Vol]3.0 g/dLAdena Fayette Medical CenterGlucose [Mass/volume] in Serum or PlasmaOrdered By: Perri Ceja on 15-09-1822Ykwthen [Mass/Vol]91 mg/eP04-618XilsozaaaAdena Fayette Medical Center Comment on above:ADA recommended reference rangeRandom Glucose Reference Range is dependent on time and content of last meal. Glucose of more than 200 mg/dL in a nonstressed, ambulatory subject supports the diagnosisof Diabetes Mellitus. Hematocrit Auto (Bld) [Volume fraction]Ordered By: Perri Ceja on 11-06-2023 Hematocrit (Bld) [Volume fraction]38.9 %34.0-46.4FParkwood HospitalHemoglobin [Mass/volume] in BloodOrdered By: Perri Ceja on 11-06-2023 Hemoglobin (Bld) [Mass/Vol]13.1 g/dL11.8-15.4FParkwood Hospital Leukocytes [#/volume] corrected for nucleated erythrocytes in Blood by Automated counOrdered By: Perri Ceja on 63-32-9196RBV corrected for nucl RBC Auto (Bld) [#/Vol]8.8 10*3/uL3.8-11.6FParkwood HospitalLymphocytes Auto (Bld) [#/Vol]Ordered By: Perri Ceja on 11-99-3577Odxlnzhurkb (Bld) [#/Vol]1.5 10*3/uL1.00-4.8[facility] CenterLymphocytes/100 WBC Auto (Bld)Ordered By: Perri Ceja on 40-71-6351Rxmyxomruby/100 WBC (Bld)17.6 %.[facility] CenterH Auto (RBC) [Entitic mass]Ordered By: Perri Ceja on 43-27-5463LZB (RBC) [Entitic mass]28.4 pg24.7-34.3FParkwood HospitalMCHC Auto (RBC) [Mass/Vol]Ordered By: Perri Ceja on 67-00-4084BUAT (RBC) [Mass/Vol]33.6 g/dL32.0-35.0[facility] CenterMCV Auto (RBC) [Entitic vol]Ordered By: Perri Ceja on 82-36-3797LHY (RBC) [Entitic vol]84.6 zU46-513MirefqjvlAdena Fayette Medical CenterMonocytes Auto (Bld) [#/Vol]Ordered By: Perri Ceja on 99-65-1626Fvlkmtqzi (Bld) [#/Vol]0.6 10*3/uL0.0-0.8[facility] CenterMonocytes/100 WBC Auto (Bld) Ordered By: Perri Ceja on 03-77-6478Euvqvhcnw/100 WBC (Bld)6.6 %.[facility] CenterNeutrophils Auto (Bld) [#/Vol]Ordered By: Perri Ceja on 92-37-3346Phslznonnlp (Bld) [#/Vol]6.3 10*3/uL1.8-7.7FParkwood HospitalNeutrophils/100 WBC Auto (Bld)Ordered By: Perri Ceja on 18-10-7263Wvkhsdvlofr/100 WBC (Bld)72.1 %.[facility] CenterNo Panel InformationOrdered By: Perri Ceja on 82-99-5391Bnebdztgs GFR (CKD-EPI) 57.919 mL/MinAdena Fayette Medical CenterPharmacy Creatinine Clearance (ChemN/AFParkwood HospitalNucleated erythrocytes [Presence] in Blood by Automated countOrdered By: Perri Ceja on 37-89-8511Poybrjsra RBC Auto Ql (Bld)0.1 /100{WBC}0-0.5FParkwood HospitalPlatelet mean volume Auto (Bld) [Entitic vol]Ordered By: Perri Ceja on 56-33-8891Pmadpsun mean volume (Bld) [Entitic vol]6.9 fL6.3-10.7FParkwood Hospital Platelets Auto (Bld) [#/Vol]Ordered By: Perri Ceaj on 72-97-8929Gariczhxq (Bld) [#/Vol]393 10*3/bP023-762JakjpffpgAdena Fayette Medical CenterPotassium [Moles/volume] in Serum or PlasmaOrdered By: Perri Ceja on 11-06-2023 Potassium [Moles/Vol]3.8 mmol/L3.5-5.1FParkwood HospitalProtein [Mass/volume] in Serum or PlasmaOrdered By: Perri Ceja on 92-14-9578Mleyasr [Mass/Vol]7.7 g/dL6.4-8.9[facility] CenterRBC Auto (Bld) [#/Vol] Ordered By: Perri Ceja on 07-34-7537IQL (Bld) [#/Vol]4.60 10*6/uL3.60-5.00 [facility] Andersonerum or plasma albumin/globulin mass ratio Ordered By: Perri Ceja on 74-88-5972Cuzgkra/Globulin [Mass ratio]1.6 {ratio} [facility] Andersonerum or plasma anion gap determinationOrdered By: Perri Ceja on 24-86-7812Jabuu gap [Moles/Vol]12.7 mmol/L6.0-15.0 [facility] Andersonodium [Moles/volume] in Serum or PlasmaOrdered By: Perri Ceja on 28-25-7074Jpwxkm [Moles/Vol]139 mmol/W479-500LlmygbtkjAdena Fayette Medical CenterUrea nitrogen [Mass/volume] in Serum or PlasmaOrdered By: Perri Ceja on 94-56-5411Ahqy nitrogen [Mass/Vol]17 mg/dL7-25A[facility] CenterWBC Auto (Bld) [#/Vol]Ordered By: Perri Ceja on 66-03-3987HGT (Bld) [#/Vol]8.8 10*3/uL3.8-11.6FParkwood Hospital PTH INTACTon 42-56-4760GSB, Gsvgpt777 pg/mLCritically slod51-81Cva [facility] RehabilitationComment on above:Performed By: #### MG, URIC, RENAL #### [facility] [address] [place] [address] Dr. Hari PalmerFERRITINon 76-69-0448Ttkaticd [Mass/Vol]194.0 ng/mLCritically high6.2-137.0The [facility] RehabilitationComment on above:Performed By: #### MG, URIC, RENAL #### [facility] [address] [place] [address] [address] Hari PalmerHEMOGRAM AND PLATELon 19-61-2185Janrzcqdpv (Bld) [Volume fraction]32.8 %Critically low36.0-48.0The [facility] For RehabilitationComment on above: Performed By: #### MG, URIC, RENAL #### [facility] [address] [place] [address] Dr. Hari PalmerHemoglobin (Bld) [Mass/Vol]10.8 g/dLCritically low12.0-16.0The [facility] RehabilitationComment on above:Performed By: #### MG, URIC, RENAL #### [facility] [address] [place] [address] Dr. Hari Sargent (RBC) [Entitic mass]31.7 pkGuiziv40.7-34.0The [facility] For RehabilitationComment on above:Performed By: #### MG, URIC, RENAL #### [facility] [address] [place] [address] Dr. Hari PalmerUNITED HEALTH SERVICES (RBC) [Mass/Vol]32.9 g/cWBnllki46.9-35.2The [facility] RehabilitationComment on above:Performed By: #### MG, URIC, RENAL #### [facility] [address] [place] [address] Dr. Hari Sargent (RBC) [Entitic vol]96.2 rALvyzds50.0-99.0The [facility] Centerment on above:Performed By: #### MG, URIC, RENAL #### [facility] [address] [place] [address] Dr. Hari PalmerPLT297 103/uaPpmxwa145-375Fkg [facility] RehabilitationComment on above: Performed By: #### MG, URIC, RENAL #### [facility] [address] [place] [address] Dr. Hari PalmerRBC3.41 106/ulCritically low4.20-5.40The [facility] on above:Performed By: #### MG, URIC, RENAL #### [facility] [address] [place] [address] Dr. Hari PalmerWBC7.1 103/ulNormal4.0-11.0The [facility] For RehabilitationComment on above: Performed By: #### MG, URIC, RENAL #### [facility] [address] [place] [address] Dr. Hari Riley AND TIBCon 07-29-2022% HPQWOLKQVK33.0 %NormalThe [facility] For RehabilitationComment on above:Performed By: #### MG, URIC, RENAL #### [facility] [address] [place] [address] Dr. Hari Riley [Mass/Vol]48.0 ug/dLCritically low50.0-170.0The [facility] RehabilitationComment on above:Performed By: #### MG, URIC, RENAL #### [facility] [address] [place] [address] Dr. Hari PalmerTIBC QCVCYC229.0 ug/sZNjmkyn784.0-450.0The [facility] Comment on above:Performed By: #### MG, URIC, RENAL #### [facility] [address] [place] [address] Dr. Hari PalmerMAGNESIUMon 15-19-1183Rgkrhassf [Mass/Vol]2.0 mg/dLNormal1.8-2.4 The [facility] RehabilitationComment on above:Performed By: #### MG, URIC, RENAL #### [facility] [address] [place] [address] Dr. Hari MorenoAL FUNCTION PANELon 19-40-0982Heicixa [Mass/Vol]3.6 g/dLNormal 3.4-5.0The [facility] RehabilitationComment on above:Performed By: #### MG, URIC, RENAL #### [facility] [address] [place] [address] Dr. Hari PalmerCalcium [Mass/Vol]8.7 mg/dLNormal8.5-10.1The [facility] Comment on above:Performed By: #### MG, URIC, RENAL #### [facility] [address] [place] [address] Dr. Hari PalmerChloride [Moles/Vol]104 mmol/UAiglla98-943Ajn [facility] Comment on above:Performed By: #### MG, URIC, RENAL #### [facility] [address] [place] [address] Dr. Hari PalmerCO2 [Moles/Vol]21.8 mmol/AHbbwiw74.0-32.0The [facility] Comment on above:Performed By: #### MG, URIC, RENAL #### [facility] [address] [place] [address] Dr. Hari PalmerCreatinine [Mass/Vol]3.83 mg/dLCritically high0.55-1.02The [facility] RehabilitationComment on above:Performed By: #### MG, URIC, RENAL #### [facility] [address] [place] [address] Dr. Hari BrandtGFR-AF YNKMDOFM20 mL/min/1.31t8Fuqdmghnnp low>=60The [facility] For RehabilitationComment on above:Performed By: #### MG, URIC, RENAL #### [facility] [address] [place] [address] Dr. Hari BrandtGFR-NON AF EQOZCJQE07 mL/min/1.20j8Zjwpmphbbg low>=60The [facility] RehabilitationComment on above:Performed By: #### MG, URIC, RENAL #### [facility] [address] [place] [address] Dr. Hari PalmerGlucose [Mass/Vol]108 mg/dLCritically hcve25-806Hld [facility] RehabilitationComment on above:Performed By: #### MG, URIC, RENAL #### [facility] [address] [place] [address] Dr. Hari PalmerPhosphate [Mass/Vol]5.4 mg/dLCritically high2.6-4.7The [facility] RehabilitationComment on above:Performed By: #### MG, URIC, RENAL #### [facility] [address] [place] [address] Dr. Hari PalmerPotassium [Moles/Vol]3.9 mmol/LNormal3.5-5.1The [facility] Comment on above:Performed By: #### MG, URIC, RENAL #### [facility] [address] [place] [address] Dr. Hari Matosdium [Moles/Vol]137 mmol/SAqocxt639-771SovParkwood Hospital Comment on above:Performed By: #### MG, URIC, RENAL #### [facility] [address] [place] [address] Dr. Hari PalmerUrea nitrogen [Mass/Vol]47.0 mg/dLCritically high7.0-18.0The [facility] RehabilitationComment on above:Performed By: #### MG, URIC, RENAL #### [facility] [address] [place] [address] Dr. Hari Britt ACID SERUMon 95-29-6302Ohgwu [Mass/Vol]6.3 mg/dLCritically high2.6-6.0The [facility] RehabilitationComment on above:Performed By: #### MG, URIC, RENAL #### [facility] [address] [place] [address] Dr. Hari Hadley T PROTEIN CREAT RATIOon 03-81-3038Phdwsai (U) [Mass/Vol] 29.7 mg/dLCritically high<=12.0The [facility] RehabilitationComment on above:Performed By: #### MG, URIC, RENAL #### [facility] [address] [place] [address] Dr. Hari Prince PROT CREAT RAT0.56NormalThe [facility] For RehabilitationComment on above: Performed By: #### MG, URIC, RENAL #### [facility] [address] [place] [address] Dr. Hari Hadley CREAT53.35 mg/fRUvffao11.00-300.00[facility] Comment on above:Performed By: #### MG, URIC, RENAL #### [facility] [address] [place] [address] Dr. Hari PalmerVITAMIN D 25 OHon 22-27-8377YJN D 25-OH38.8 ng/mLNormalThe [facility] For RehabilitationComment on above:Performed By: #### MG, URIC, RENAL #### [facility] [address] [place], [place] [address] Dr. Hari Peng [facility] HOSPITALArmani [facility] Beachwood Medical CenterComment on above: Result Comment: <20 ng/mL Vit D deficient 20 - <30 ng/mL Vit D insufficient 30 - 100 ng/mL Vit D sufficient >100 ng/mL Potential ToxicityPerformed By: #### MG, URIC, RENAL #### [facility] [address] [place], [place] [address] Dr. Hari PalmerAlbumin [Mass/volume] in Serum or PlasmaOrdered By: Stanley Forman on 12-57-9604Nhqbaly [Mass/Vol]3.9 g/dL3.2-5.5FParkwood Hospital Basophils Auto (Bld) [#/Vol]Ordered By: Stanley Forman on 02-51-9704Bphqaldta (Bld) [#/Vol]0.1 10*3/uL0.0-0.2FParkwood HospitalBasophils/100 WBC Auto (Bld)Ordered By: Stanley Forman on 99-47-7901Rgodpxjis/100 WBC (Bld)0.7 % .[facility] CenterBlood hemoglobin measurement (mass/volume) Ordered By: Stanley Forman on 29-40-2521Uqcmzeztny (Bld) [Mass/Vol]10.8 g/dL 11.8-15.4FParkwood HospitalBlood leukocytes automated count (number/volume)Ordered By: Stanley Forman on 85-56-2742FKE (Bld) [#/Vol]11.8 10*3/uL4.5-11.0[facility] CenterC reactive protein [Mass/volume] in Serum or PlasmaOrdered By: Stanley Forman on 75-45-6512TGI [Mass/Vol]5.2 mg/dL 0.0-1.0[facility] CenterCreatinine and Glomerular filtration rate.predicted panel (S/P/Bld)Ordered By: Stanley Forman on 89-83-9458Rdnkqmzpud [Mass/Vol]4.49 mg/dL0.44-1.03[facility] CenterEosinophils Auto (Bld) [#/Vol]Ordered By: Stanley Forman on 23-97-8795Xfipwjfemmb (Bld) [#/Vol]0.4 10*3/uL0.0-0.45[facility] CenterEosinophils/100 WBC Auto (Bld) Ordered By: Stanley Forman on 93-30-1799Xrofunrgslq/100 WBC (Bld)3.2 %.[facility] CenterErythrocyte distribution width Auto (RBC) [Ratio]Ordered By: Stanley Forman on 84-64-7070Qghdkdhcwub distribution width (RBC) [Ratio]14.0 % 11.9-15.3FParkwood HospitalErythrocyte sedimentation rate by Photometric methodOrdered By: Stanley Forman on 27-45-2290GYL Photometric method (Bld) [Velocity]67 mm/hr0-19[facility] CenterEstimated glomerular filtration rate (GFR) non- AmericanOrdered By: Stanley Forman on 63-95-1921EOZ/1.73 sq M.predicted among non-blacks MDRD (S/P/Bld) [Vol rate/Area]11 mL/MinAdena Fayette Medical CenterGlobulin Calc (S) [Mass/Vol] Ordered By: Stanley Forman on 73-66-3343Iecgjpbk (S) [Mass/Vol]3.5 g/dLAdena Fayette Medical CenterHematocrit Auto (Bld) [Volume fraction]Ordered By: Stanley Forman on 53-38-5632Svjtbevfqr (Bld) [Volume fraction]33.1 %34.0-46.4FParkwood HospitalLaboratory - Hematology and Cell countsOrdered By: Stanley Forman on 16-98-3269Chpatocth RBC/100 WBC (Bld) [Ratio]0.0 %0-0.5FParkwood HospitalLymphocytes Auto (Bld) [#/Vol]Ordered By: Stanley Forman on 37-93-5617Hmcxbtigast (Bld) [#/Vol]1.5 10*3/uL1.00-4.8[facility] Medical CenterLymphocytes/100 WBC Auto (Bld)Ordered By: Stanley Forman on 03-10-1366Ljwujddpudj/100 WBC (Bld)12.3 %.[facility] Auto (RBC) [Entitic mass]Ordered By: Stanley Forman on 37-11-7969JHD (RBC) [Entitic mass]31.1 pg24.7-34.3FDelaware County HospitalHC Auto (RBC) [Mass/Vol]Ordered By: Stanley Forman on 06-52-6946IFGZ (RBC) [Mass/Vol]32.5 g/dL 32.0-35.0[facility] CenterMCV Auto (RBC) [Entitic vol]Ordered By: Stanley Forman on 12-47-6302RYL (RBC) [Entitic vol]95.6 eZ79-786QsfrxckgbAdena Fayette Medical CenterMonocytes Auto (Bld) [#/Vol]Ordered By: Stanley Forman on 91-14-8340Yupkfnjbj (Bld) [#/Vol]0.5 10*3/uL0.0-0.8[facility] CenterMonocytes/100 WBC Auto (Bld)Ordered By: Stanley Forman on 06-20-2022 Monocytes/100 WBC (Bld)4.1 %.[facility] Medical CenterNeutrophils Auto (Bld) [#/Vol]Ordered By: Stanley Forman on 31-43-8643Ttczzbbuadr (Bld) [#/Vol]9.4 10*3/uL1.8-7.7FParkwood HospitalNeutrophils/100 WBC Auto (Bld) Ordered By: Stanley Forman on 55-06-0766Gngnopuwqmd/100 WBC (Bld)79.7 %.[facility] CenterNo Panel InformationOrdered By: Stanley Forman on 96-37-2826Imvnrhylg GFR ()13 mL/MinAdena Fayette Medical CenterComment on above:GFR estimated reference range: According to KDOQI guidelines, <60 ml/min/1.73m2 is sufficient todiagnose a patient with chronic kidney disease.Pharmacy Creatinine Clearance (Chem16.48[facility] Medical CenterPlatelet mean volume Auto (Bld) [Entitic vol]Ordered By: Stanley Forman on 53-85-7814Welvetad mean volume (Bld) [Entitic vol]7.0 fL6.3-10.7 [facility] CenterPlatelets Auto (Bld) [#/Vol]Ordered By: Stanley Forman on 18-40-9670Vrzgaddtd (Bld) [#/Vol]287 10*3/xH234-762AdwntrxzyAdena Fayette Medical CenterProtein [Mass/volume] in Serum or PlasmaOrdered By: Stanley Forman on 93-09-6752Dajzxgb [Mass/Vol]7.4 g/dL6.1-7.9[facility] RBC Auto (Bld) [#/Vol]Ordered By: Stanley Forman on 67-32-5316XHY (Bld) [#/Vol] 3.46 10*6/uL3.60-5.00[facility] Andersonerum or plasma alanine aminotransferase measurement without P-5'-P (enzymatic activiOrdered By: Stanley Forman on 48-79-1120FUH No additional P-5'-P [Catalytic activity/Vol]11 U/L10-60 [facility] Andersonerum or plasma albumin/globulin mass ratio Ordered By: Stanley Forman on 98-81-1935Dqiewzp/Globulin [Mass ratio]1.1 {ratio} [facility] Andersonerum or plasma alkaline phosphatase measurement (enzymatic activity/volume)Ordered By: Stanley Forman on 25-62-1891VGZ [Catalytic activity/Vol]82 U/T76-20UwdanmnucOur Lady of Mercy Hospital - Andersonerum or plasma anion gap determinationOrdered By: Stanley Forman on 13-11-6845Sxqzp gap [Moles/Vol]16.2 mmol/L6.0-15.0[facility] Andersonerum or plasma aspartate aminotransferase measurement (enzymatic activity/volume)Ordered By: Stanley Forman on 46-56-2886IES [Catalytic activity/Vol]15 U/M50-92SzrfoftubOur Lady of Mercy Hospital - Andersonerum or plasma calcium measurement (mass/volume)Ordered By: Stanley Forman on 27-34-6832Dmddyel [Mass/Vol]9.3 mg/dL8.2-10.2FLakeHealth Beachwood Medical Centererum or plasma chloride measurement (moles/volume) Ordered By: Stanley Forman on 02-03-0825Smzwucla [Moles/Vol]103 mmol/L95-114 [facility] Andersonerum or plasma glucose measurement (mass/volume)Ordered By: Stanley Forman on 74-88-5336Zewskai [Mass/Vol]75 mg/dL 70-100A[facility] Medical CenterComment on above:ADA recommended reference rangeRandom Glucose Reference Range is dependent on time and content of last meal. Glucose of more than 200 mg/dL in a nonstressed, ambulatory subject supports the diagnosisof Diabetes Mellitus.Serum or plasma potassium measurement (moles/volume)Ordered By: Stanley Forman on 29-17-2252Uvcxmjnnm [Moles/Vol]4.3 mmol/L3.5-5.1FLakeHealth Beachwood Medical Centererum or plasma sodium measurement (moles/volume)Ordered By: Stanley Forman on 25-87-1594Qsyhrc [Moles/Vol]135 mmol/B742-458RgvciadjhOur Lady of Mercy Hospital - Andersonerum or plasma total bilirubin measurement (mass/volume)Ordered By: Stanleymario Forman on 06-20-2022 Bilirubin [Mass/Vol]0.3 mg/dL0.3-1.2FLakeHealth Beachwood Medical Centererum or plasma total carbon dioxide measurement (moles/volume)Ordered By: Stanley Forman on 48-66-9158MP9 [Moles/Vol]20.1 mmol/L22.0-30.0[facility] Andersonerum or plasma urea nitrogen measurement (mass/volume)Ordered By: Stanley Forman on 42-88-3539Egzm nitrogen [Mass/Vol]42 mg/dL9-23[facility] CenterCOVID-19 Positive/NegativeOrdered By: Jesus Parham on 06-20-2773GJPY-CoV-2 (COVID-19) N gene AMBERLY+probe Ql (Resp)NegativeNegative [facility] CenterComment on above:Testing for SARS-CoV-2 by RT-PCR This test was developed and its performance characteristics determined by [employer] ([employer]) and validated at the [facility]. This test has not been [...] and its performance characteristics determined by [employer] ([employer]) and validated at the [facility]. This test has not been [...] authorization is terminated or revoked sooner.CA 125on 88-64-9032Pswgsd Antigen (CA) 96470.8 U/mLNormal 0.0-38.1The [facility] For RehabilitationComment on above:Result Comment: [employer] Electrochemiluminescence Immunoassay (ECLIA) . Values obtained with different assay methods or kits cannot be used interchangeably. Results cannot be interpreted as absolute evidence of the presence or absence of malignant disease.Performed By: #### MG, URIC, RENAL #### [facility] [address] [place] [address] Dr. Hari Rodriguez 26-62-9133OFM5.9 ng/mLNormal0.0-4.7The [facility] Comment on above:Result Comment: Nonsmokers <3.9 Smokers <5.6 . [employer] Electrochemiluminescence Immunoassay (ECLIA) . Values obtained with different assay methods or kits cannot be used interchangeably. Results cannot be interpreted as absolute evidence of the presence or absence of malignant disease.Performed By: #### CEA. #### [facility] [address] [place] [address] Dr. Hari PalmerBasophils Auto (Bld) [#/Vol]Ordered By: Jesus Parham on 01-60-3611Asmvjungx (Bld) [#/Vol]0.0 10*3/uL0.0-0.2FParkwood HospitalBasophils/100 WBC Auto (Bld)Ordered By: Jesus Parham on 06-05-2022 Basophils/100 WBC (Bld)0.3 %.[facility] CenterBlood hemoglobin measurement (mass/volume)Ordered By: Jesus Parham on 16-55-6776Xijinzmjyk (Bld) [Mass/Vol]12.0 g/dL11.8-15.4FParkwood HospitalBlood leukocytes automated count (number/volume)Ordered By: Jesus Parham on 43-56-2921OIK (Bld) [#/Vol]8.5 10*3/uL4.5-11.0[facility] Creatinine and Glomerular filtration rate.predicted panel (S/P/Bld)Ordered By: Jesus Parham on 00-62-8131Ewjrqubxgd [Mass/Vol]3.52 mg/dL0.44-1.03 [facility] CenterEosinophils Auto (Bld) [#/Vol]Ordered By: Jesus Parham on 89-98-3433Mqwhnciqqso (Bld) [#/Vol]0.2 10*3/uL0.0-0.45 [facility] CenterEosinophils/100 WBC Auto (Bld)Ordered By: Jesus Parham on 69-57-2918Isougkwqcwh/100 WBC (Bld)2.7 %.[facility] CenterErythrocyte distribution width Auto (RBC) [Ratio]Ordered By: Jesus Parham on 87-10-3945Xcjjyklcmsn distribution width (RBC) [Ratio] 14.2 %11.9-15.3FParkwood HospitalEstimated glomerular filtration rate (GFR) non- AmericanOrdered By: Jesus Parham on 06-05-2022 GFR/1.73 sq M.predicted among non-blacks MDRD (S/P/Bld) [Vol rate/Area]14 mL/Min [facility] CenterHematocrit Auto (Bld) [Volume fraction]Ordered By: Jesus Parham on 43-16-0258Livewrrsjq (Bld) [Volume fraction]35.8 % 34.0-46.4FParkwood HospitalLaboratory - Hematology and Cell countsOrdered By: Jesus Parham on 51-16-1294Sraymaldm RBC/100 WBC (Bld) [Ratio]0.1 %0-0.5FParkwood HospitalLymphocytes Auto (Bld) [#/Vol] Ordered By: Jesus Parham on 47-08-4948Vgigjiikouw (Bld) [#/Vol]1.6 10*3/uL 1.00-4.8[facility] CenterLymphocytes/100 WBC Auto (Bld)Ordered By: Jesus Parham on 70-60-4722Fdoobfezeuo/100 WBC (Bld)19.3 %.[facility] CenterH Auto (RBC) [Entitic mass]Ordered By: Jesus Parham on 08-09-7954LCY (RBC) [Entitic mass]31.5 pg24.7-34.3FDelaware County HospitalHC Auto (RBC) [Mass/Vol]Ordered By: Jesus Parham on 90-13-6725IOYM (RBC) [Mass/Vol]33.3 g/dL32.0-35.0[facility] CenterMCV Auto (RBC) [Entitic vol]Ordered By: Jesus Parham on 06-05-2022 MCV (RBC) [Entitic vol]94.4 gX84-947KpzpcjvqnAdena Fayette Medical CenterMonocytes Auto (Bld) [#/Vol]Ordered By: Jesus Parham on 59-79-1003Ehaauinhn (Bld) [#/Vol]0.3 10*3/uL0.0-0.8[facility] CenterMonocytes/100 WBC Auto (Bld)Ordered By: Jesus Parham on 30-53-0166Yaornmkae/100 WBC (Bld)3.9 %. [facility] CenterNeutrophils Auto (Bld) [#/Vol]Ordered By: Jesus Parham on 12-80-6734Wyarqfugwpy (Bld) [#/Vol]6.2 10*3/uL1.8-7.7 [facility] CenterNeutrophils/100 WBC Auto (Bld)Ordered By: Jesus Parham on 69-97-8826Wtjzlamfhqs/100 WBC (Bld)73.8 %.[facility] CenterNo Panel InformationOrdered By: Jesus Parham on 51-09-4869Fzfawwoys GFR ()17 mL/MinAdena Fayette Medical CenterComment on above:GFR estimated reference range: According to KDOQI guidelines, <60 ml/min/1.73m2 is sufficient todiagnose a patient with chronic kidney disease.Pharmacy Creatinine Clearance (ChemN/[facility] HospitalPlatelet mean volume Auto (Bld) [Entitic vol]Ordered By: Jesus Parham on 66-58-8196Iryyvibq mean volume (Bld) [Entitic vol]7.3 fL6.3-10.7 [facility] CenterPlatelets Auto (Bld) [#/Vol]Ordered By: Jesus Parham on 93-55-3471Moryokyut (Bld) [#/Vol]312 10*3/mQ053-014DyjwosxsjAdena Fayette Medical CenterRBC Auto (Bld) [#/Vol]Ordered By: Jesus Parham on 88-92-0806KBO (Bld) [#/Vol]3.80 10*6/uL3.60-5.00[facility] Andersonerum or plasma anion gap determinationOrdered By: Jesus Parham on 40-04-8927Dfajj gap [Moles/Vol]15.1 mmol/L6.0-15.0[facility] Andersonerum or plasma calcium measurement (mass/volume)Ordered By: Jesus Parham on 81-13-5831Bzyoaov [Mass/Vol]9.5 mg/dL8.2-10.2FLakeHealth Beachwood Medical Centererum or plasma chloride measurement (moles/volume)Ordered By: Jesus Parham on 55-84-4265Twirllyy [Moles/Vol]106 mmol/R44-095BnwjvrmmnOur Lady of Mercy Hospital - Andersonerum or plasma glucose measurement (mass/volume)Ordered By: Jesus Parham on 38-60-8658Qqzzajz [Mass/Vol]91 mg/oC09-665SudcvweftAdena Fayette Medical CenterComment on above:ADA recommended reference range [...] potassium measurement (moles/volume)Ordered By: Jesus Parham on 35-98-9435Iptavaywy [Moles/Vol]4.4 mmol/L3.5-5.1 [facility] Andersonerum or plasma sodium measurement (moles/volume)Ordered By: Jesus Parham on 83-61-5954Esqmss [Moles/Vol]137 mmol/V897-707CfdtnwttcOur Lady of Mercy Hospital - Andersonerum or plasma total carbon dioxide measurement (moles/volume)Ordered By: Jesus Parham on 06-05-2022 CO2 [Moles/Vol]20.3 mmol/L22.0-30.0[facility] Andersonerum or plasma urea nitrogen measurement (mass/volume)Ordered By: Jesus Parham on 23-28-6905Ebll nitrogen [Mass/Vol]38 mg/dL9-23[facility] PTH INTACTon 86-26-5660EXX, Nppuka478 pg/mLCritically ybcu94-72Pcv [facility] RehabilitationComment on above:Performed By: #### MG, URIC, RENAL #### [facility] [address] [address] [address] Hari Peng 25-[place] LABCORPon 97-13-4490Pbehuxn D, 25-Qmtgcql37.6 ng/mL Jpapeq23.0-100.0The [facility] For RehabilitationComment on above:Result Comment: Vitamin D deficiency has been defined by the [place] of [employer] and an Endocrine Society practice guideline as a level of serum 25-OH vitamin D less than 20 ng/mL (1,2). The Endocrine Society went on to further define vitamin D insufficiency as a level between 21 and 29 ng/mL (2). 1. IOM ([place] of [employer]). 2010. Dietary reference intakes for calcium and D. [place]: The National Academies Press. 2. Chantel MF, Landen BURGOS, Eliseo CARDOZA, et al. Evaluation, treatment, and prevention of vitamin D deficiency: an Endocrine Society clinical practice guideline. JCEM. 2010; 96(7):1911-30.Performed By: #### MG, URIC, RENAL #### [facility] [address] [place] [address] Dr. Hrai Arteaga AND RH TYPEon 87-45-1387DPY and Rh group Nom (Bld)ABO Rh Typing O Rh PositiveNormalThe [facility] For RehabilitationComment on above:Performed By: #### MG, URIC, RENAL #### [facility] [address] [place] [address] Dr. Hari PalmerFERRITINon 80-04-1575Xwrkghyr [Mass/Vol]273.0 ng/mLCritically high6.2-137.0Parkwood HospitalComment on above:Performed By: #### MG, URIC, RENAL #### [facility] [address] [place] [address] Dr. Hari PalmerHEMOGRAM AND PLATELon 25-14-4405Zoiejdddow (Bld) [Volume fraction]33.9 %Critically low36.0-48.0The [facility] For RehabilitationComment on above: Performed By: #### MG, URIC, RENAL #### [facility] [address] [place] [address] Dr. Hari PalmerHemoglobin (Bld) [Mass/Vol]11.4 g/dLCritically low12.0-16.0The [facility] RehabilitationComment on above:Performed By: #### MG, URIC, RENAL #### [facility] [address] [place] [address] Dr. Hari PalmerMCH (RBC) [Entitic mass]31.7 tdJwvswz78.7-34.0The [facility] For RehabilitationComment on above:Performed By: #### MG, URIC, RENAL #### [facility] [address] [place] [address] Dr. Hari Sargent (RBC) [Mass/Vol]33.6 g/dUAxgbba13.9-35.2The [facility] RehabilitationComment on above:Performed By: #### MG, URIC, RENAL #### [facility] [address] [place] [address] Dr. Hari Sargent (RBC) [Entitic vol]94.2 mVGuvegl79.0-99.0The [facility] For RehabilitationComment on above:Performed By: #### MG, URIC, RENAL #### [facility] [address] [place] [address] Dr. Hari PalmerPLT333 103/wcLpzwkr462-594Vpv [facility] RehabilitationComment on above: Performed By: #### MG, URIC, RENAL #### [facility] [address] [place] [address] Dr. Hari WayC3.60 106/ulCritically low4.20-5.40The [facility] For RehabilitationComment on above:Performed By: #### MG, URIC, RENAL #### [facility] [address] [place] [address] Dr. Hari PalmerWBC9.7 103/ulNormal4.0-11.0The [facility] For RehabilitationComment on above: Performed By: #### MG, URIC, RENAL #### [facility] [address] [place] [address] Dr. Hari Riley AND TIBCon 04-27-2022% UGGASBPSSI26.1 %NormalThe [facility] For RehabilitationComment on above:Performed By: #### MG, URIC, RENAL #### [facility] [address] [place] [address] Dr. Hari Riley [Mass/Vol]57.0 ug/zSKidegg55.0-170.0[facility] on above:Performed By: #### MG, URIC, RENAL #### [facility] [address] [place] [address] Dr. Hari PalmerTIBC OGXSQM172.0 ug/zRSxwjml303.0-450.0[facility] Comment on above:Performed By: #### MG, URIC, RENAL #### [facility] [address] [place] [address] Dr. Hari PalmerMAGNESIUMon 23-20-6319Uagpfzshd [Mass/Vol]2.1 mg/dLNormal1.8-2.4 The [facility] For RehabilitationComment on above:Performed By: #### RENAL, URIC, MG #### [facility] [address] [place] [address] Dr. Hari PalmerRENAL FUNCTION PANELon 25-81-9176Yvgtacr [Mass/Vol]3.6 g/dLNormal 3.4-5.0The [facility] For RehabilitationComment on above:Performed By: #### RENAL, URIC, MG #### [facility] [address] [place] [address] Dr. Hari PalmerCalcium [Mass/Vol]9.0 mg/dLNormal8.5-10.1[facility] Comment on above:Performed By: #### RENAL, URIC, MG #### [facility] [address] [place] [address] Dr. Hari PalmerChloride [Moles/Vol]104 mmol/COkeiik07-937LkxParkwood Hospital Comment on above:Performed By: #### RENAL, URIC, MG #### [facility] [address] [place] [address] Dr. Hari PalmerCO2 [Moles/Vol]23.0 mmol/NQbmccq98.0-32.0The [facility] Comment on above:Performed By: #### RENAL, URIC, MG #### [facility] [address] [place] [address] Dr. Hari PalmerCreatinine [Mass/Vol]3.38 mg/dLCritically high0.55-1.02Parkwood HospitalComment on above:Performed By: #### RENAL, URIC, MG #### [facility] [address] [place] [address] Dr. Noriega ChangEGFR-AF CBEGPLOD71 mL/min/1.90f4Muuvlouegx low>=60The [facility] For RehabilitationComment on above:Performed By: #### RENAL, URIC, MG #### [facility] [address] [place] [address] Dr. Noriega ChangEGFR-NON AF OOKHNXAN76 mL/min/1.34v4Ezmjqaluvt low>=60The [facility] For RehabilitationComment on above:Performed By: #### RENAL, URIC, MG #### [facility] [address] [place] [address] Dr. Hari PalmerGlucose [Mass/Vol]113 mg/dLCritically vert22-399Nwn [facility] RehabilitationComment on above:Performed By: #### RENAL, URIC, MG #### [facility] [address] [place] [address] Dr. Hari PalmerPhosphate [Mass/Vol]4.4 mg/dLNormal2.6-4.7The [facility] Comment on above:Performed By: #### RENAL, URIC, MG #### [facility] [address] [place] [address] Dr. Hari PalmerPotassium [Moles/Vol]4.0 mmol/LNormal3.5-5.1[facility] Comment on above:Performed By: #### RENAL, URIC, MG #### [facility] [address] [place] [address] Dr. Hari PalmerSodium [Moles/Vol]137 mmol/YUreqwa462-391Rxn [facility] Comment on above:Performed By: #### RENAL, URIC, MG #### [facility] [address] [place] [address] Dr. Hari PalmerUrea nitrogen [Mass/Vol]44.0 mg/dLCritically high7.0-18.0The [facility] RehabilitationComment on above:Performed By: #### RENAL, URIC, MG #### [facility] [address] [place] [address] Dr. Hari PalmerURIC ACID SERUMon 35-30-9330Utxkg [Mass/Vol]6.6 mg/dLCritically high2.6-6.0The [facility] RehabilitationComment on above:Performed By: #### RENAL, URIC, MG #### [facility] [address] [place], [place] [address] Dr. Hari Hadley T PROTEIN CREAT RATIOon 76-47-7205Rgkzfco (U) [Mass/Vol] 31.4 mg/dLCritically high<=12.0The [facility] RehabilitationComment on above:Performed By: #### MG, URIC, RENAL #### [facility] [address] [address] [address] Hari Prince PROT CREAT RAT0.55NormalThe [facility] For RehabilitationComment on above: Performed By: #### MG, URIC, RENAL #### [facility] [address] [address] [address] Hari Hadley CREAT57.50 mg/iGSgnwiu33.00-300.00[facility] Comment on above:Performed By: #### MG, URIC, RENAL #### [facility] [address] [address] [address] Hari BrandtCHOCARDIEma M/2D COMPLETEon 94-56-3295AVPZLMVVXY M/2D COMPLETE Patient: MANDEEP PURI Exam Date: 03/29/2022 : 1975 Gender:F Ordering : HAIDER FRENCH M.D. Admission #: [id number] Family : Order #: [id number] CLICK HERE TO VIEW EXAM ECHOCARDIOGRAM REPORT [...] Area(A4C): 17.00 cm2 Left Atrium Systolic Volume(A2C): 64534 mm3 Left Atrium Systolic Volume(A4C): 61819 mm3 Mitral Valve MV E to A Ratio: 0.80 Deceleration Burke: 3210 mm/s2 Mitral Valve A-Wave Peak Velocity: [...] by: Damian Alonzo M.D. on 04/01/2022 at 12:33[facility] NorthCOVID-19 SOFIAOrdered By: Shabbir Jones on 05-15-4564BGEC-CoV+SARS-CoV-2 (COVID-19) Ag IA.rapid Ql (Resp)NegativeNegativeAdena Fayette Medical CenterComment on above:This is a duplicate Ada SARS Antigen (GLORIA) result to be used for statistical tracking purpose only.No Panel InformationOrdered By: Shabbir Jones on 23-86-7020XWKJ Antigen (LFIA)[facility] BLOOD TYPE AND RHon 33-66-6898TEJ INTERPRETATIONONoSelect Medical Specialty Hospital - CantonComment on above:Performed By: #### 03497, 99843, 31540, 94343, 54672 #### [facility] [address] [place] [address], [place] INTERPRETATIONPositiveParkwood HospitalComment on above:Performed By: #### 07199, 65119, 05265, 37025, 36185 #### [facility] [address] [place] [address], [facility] MEDICAL CENTERBNP (B-TYPE NATRIURETIC PEPTIDE)on 17-19-0413Eocvfqudpin peptide B (Bld) [Mass/Vol]10 pg/mLNormal0-100The [facility] HospitalComment on above:Result Comment: Given the appropriate clinical setting a BNP result of >100 pg/mL indicates congestive heart failure.Performed By: #### [id number], 00431 #### [facility] [address] [place] [address], [facility] MEDICAL CENTERCBC W/DIFFon 64-65-3949KWC IMM GRANS0.2 10*3/uLNormal 0.0-0.2The [facility] HospitalComment on above:Performed By: #### 15114, 75730, 88193, 57318, 79485 #### [facility] [address] [place] [address], [place] NEUTROPHILS7.8 10*3/uLHigh1.6-7.6The [facility] HospitalComment on above:Performed By: #### 63445, 73391, 39440, 65893, 90226 #### [facility] [address] [place] [address], USABasophils (Bld) [#/Vol]0.1 10*3/uLNormal0.0-0.2The [facility] HospitalComment on above:Performed By: #### 18092, 14458, 55203, 61666, 47474 #### [facility] [address] [place] [address], USABasophils/100 WBC (Bld)0.6 %Normal0.0-1.0The [facility] HospitalComment on above:Performed By: #### 15001, 16595, 98696, 77786, 72533 #### [facility] [address] [place] [address], USAEosinophils (Bld) [#/Vol]0.3 10*3/uLNormal0.0-0.5The [facility] HospitalComment on above:Performed By: #### 98281, 22413, 94741, 55206, 59016 #### [facility] [address] [place] [address], USAEosinophils/100 WBC (Bld)2.5 %Normal0.0-6.0The [facility] HospitalComment on above:Performed By: #### 52589, 06409, 56311, 44781, 55928 #### [facility] [address] [place] [address], USAErythrocyte distribution width (RBC) [Ratio]13.6 %Normal 11.5-15.0The [facility] HospitalComment on above:Performed By: #### 81826, 21507, 55545, 09648, 32549 #### [facility] [address] [place] [address], USAHematocrit (Bld) [Volume fraction]34.5 %Low36.0-45.0The [facility] HospitalComment on above:Performed By: #### 82041, 39555, 79113, 51047, 65674 #### [facility] [address] [place] [address], USAHemoglobin (Bld) [Mass/Vol]11.3 g/dLLow12.0-15.0The [facility] HospitalComment on above:Performed By: #### 38978, 91598, 09105, 15704, 46863 #### [facility] [address] [facility] [place] [address], USAIMMATURE GRANS1.4 %High0.0-1.0The [facility] HospitalComment on above:Performed By: #### 12535, 85930, 45312, 33415, 67061 #### [facility] [address] [facility] [place] [address], USALymphocytes (Bld) [#/Vol]2.0 10*3/uLNormal1.2-4.0The [facility] HospitalComment on above:Performed By: #### 71008, 32870, 63761, 69745, 05841 #### [facility] [address] [facility] [place] [address], USALymphocytes/100 WBC (Bld)18.6 %Low20.0-45.0The [facility] HospitalComment on above:Performed By: #### 70943, 81091, 94745, 87296, 33211 #### [facility] [address] [facility] [place] [address], USAMCH (RBC) [Entitic mass]31.3 stHjpjej43.0-33.0The [facility] HospitalComment on above:Performed By: #### 67371, 81134, 57505, 27319, 44201 #### [facility] [address] [place] [address], [facility] CENTERMCHC (RBC) [Mass/Vol]32.8 g/cLIgcucg68.0-35.0The [facility] HospitalComment on above:Performed By: #### 27059, 64661, 23769, 38208, 55138 #### [facility] [address] [place] [address], [facility] CENTERMCV (RBC) [Entitic vol]95.6 yZAqedyn20.0-98.0The [facility] HospitalComment on above:Performed By: #### 91041, 14427, 02103, 14221, 96503 #### [facility] [address] [place] [address], USAMonocytes (Bld) [#/Vol]0.5 10*3/uLNormal0.1-1.0The [facility] HospitalComment on above:Performed By: #### 67524, 45757, 02140, 06325, 82357 #### [facility] [address] [place] [address], USAMONOS4.9 %Low5.0-12.0The [facility] HospitalComment on above:Performed By: #### 30365, 07792, 00129, 24672, 69673 #### [facility] [address] [place] [address], USANeutrophils/100 WBC (Bld)72.0 %Pvhfux48.0-72.0The [facility] HospitalComment on above:Performed By: #### 22066, 64514, 27086, 90547, 85060 #### [facility] [address] [place] [address], USANucleated RBC/100 WBC (Bld) [Ratio]0 %Normal0-0The [facility] HospitalComment on above:Performed By: #### 09243, 02462, 22106, 01685, 93694 #### [facility] [address] [place] [address], USAPLAT TAA772 10*3/mLRslusq636-699Hns [facility] HospitalComment on above:Performed By: #### 49394, 04569, 17828, 96421, 96242 #### [facility] [address] [facility] [place] [address], USARBC (Bld) [#/Vol]3.61 10*6/uLLow3.80-5.00The [facility] HospitalComment on above:Performed By: #### 38623, 63640, 34335, 10505, 23766 #### [facility] [address] [facility] [place] [address], USAWBC (Bld) [#/Vol]10.78 10*3/uLHigh4.00-10.60The [facility] HospitalComment on above:Performed By: #### 20451, 15848, 76484, 70151, 32137 #### [facility] [address] [facility] [place] [address], USACHEST AND [facility] [id number] AND [facility] Department of Radiology [address] [place] [id number] Patient Name: MANDEEP PURI : 1975 [...] pathology. Electronically signed: Royal Dominguez. Transcribed by: [id number], User Resident: Electronically Signed by: ROYAL DOMINGUEZ @ 02/13/2022 11:48 AMNormalThe [facility] HospitalCMV IGG BLOODon 82-07-9224PXY IGG3.13Normal The [facility] HospitalComment on above:Result Comment: NORMAL RANGES: < OR = 0.9O NEGATIVE ; NO DETECTABLE IgG ANTIBODY TO CMV 0.91 - 1.09 EQUIVOCAL; REPEAT TESTING SUGGESTED > OR = 1.10 POSITIVE ; INDICATES PRESENCE OF DETECTABLE IgG ANTIBODY TO CMVPerformed By: #### 08919, 00952, 28149, 75719, 25405 #### [facility] [address] [place] [address], USACOMP METABOLIC PANELon 99-27-8320Qtdjrsg [Mass/Vol]4.5 g/dL Normal3.5-5.7The [facility] HospitalComment on above:Performed By: #### 47286, 29675, 81527 #### [facility] [address] [place] [address], USAALKALINE EQJBFT55 IU/QFrrjpg78-061Sfe [facility] HospitalComment on above:Performed By: #### 87920, 69733, 50084 #### [facility] [address] [place] [address], USAALT [Catalytic activity/Vol]12 U/LNormal7-52The [facility] HospitalComment on above:Performed By: #### 60860, 22238, 50939 #### [facility] [address] [place] [address], USAAST [Catalytic activity/Vol]13 U/EDnjafd01-15Wgl [facility] HospitalComment on above:Performed By: #### Padma, 99344, 94675 #### [facility] [address] [place] [address], USABilirubin [Mass/Vol]0.3 mg/dLNormal0.3-1.0The [facility] HospitalComment on above:Performed By: #### Padma, 55183, 64509 #### [facility] [address] [place] [address], USACalcium [Mass/Vol]9.5 mg/dLNormal8.6-10.3The [facility] HospitalComment on above:Performed By: #### 35315, 52868, 56640 #### [facility] [address] [place] [address], USAChloride [Moles/Vol]103 mmol/VJtcsoz18-524Ecb [facility] HospitalComment on above:Performed By: #### 92472, 27049, 99436 #### [facility] [address] [place] [address], USACO2 [Moles/Vol]22 mmol/UPgmfjl17-47Rjo [facility] HospitalComment on above:Performed By: #### 43523, 71163, 27258 #### [facility] [address] [place] [address], USACreatinine [Mass/Vol]3.51 mg/dLHigh0.60-1.20The [facility] HospitalComment on above:Performed By: #### 21335, 12562, 70664 #### [facility] [address] [place] [address], USAeGFR- Vwxlhzmn52 ml/min/1.73sq mAbnormal>60The [facility] HospitalComment on above:Performed By: #### Padma, 03535, 88015 #### [facility] [address] [place] [address], USAeGFR- non- Twpyxkme21 ml/min/1.73sq mAbnormal>60The [facility] HospitalComment on above:Performed By: #### Padma, 97974, 59708 #### [facility] [address] [place] [address], USAGlucose [Mass/Vol]100 mg/hRGcaeos31-838Shw [facility] HospitalComment on above:Performed By: #### Padma, 56428, 26339 #### [facility] [address] [place] [address], USAPotassium [Moles/Vol]3.9 mmol/LNormal3.5-5.1The [facility] HospitalComment on above:Performed By: #### Padma, 21335, 17093 #### [facility] [address] [place] [address], USAProtein [Mass/Vol]8.0 g/dLNormal6.0-8.3The [facility] HospitalComment on above:Performed By: #### Padma, 41021, 92746 #### [facility] [address] [place] [address], USASodium [Moles/Vol]136 mmol/WGefowv145-303Lyd [facility] HospitalComment on above:Performed By: #### Padma, 11379, 53055 #### [facility] [address] [place] [address], USAUrea nitrogen [Mass/Vol]41 mg/dL25 Velez StreetComment on above:Performed By: #### 23211, 43518, 60396 #### [facility] [address] [place] [address], USACREATININE URINE RANDOMon 13-72-6262Fgnczxjegf (U) [Mass/Vol]63.0 mg/dLParkwood HospitalComment on above:Result Comment: There are no established reference values for random urine specimensPerformed By: #### 49286, 20433, 10914, 30307, 04376 #### [facility] [address] [place] [address], USACT RENAL RECIPIENT ABDOMEN AND PEVLIS WO CONTRASTon 61-08-5560QW RENAL RECIPIENT ABDOMEN AND PEVLIS WO CONTRASTUnThe [facility] Department of Radiology [address] [place] [address] Patient Name: MANDEEP PURI : 1975 Sex: F Age: Race: White Pt. Location: 20 Patient Status: O Ordered Date: 02/12/2022 1:55:00 PM Completed Date: 02/12/2022 02:04 PM Requesting Provider: HAIDER FRENCH Attending Provider: HAIDER FRENCH Report Copy To: Signs & Symptoms: Z01.818 Encounter for other preprocedural examination I10 History: Savage Comments: , Pre-kidney transplant work-up. Please evaluate [...] achievable. Electronically signed: NAN SARAVIA. Transcribed by: [email or web address], User Resident: Electronically Signed by: NAN SARAVIA @ 02/12/2022 02:59 PMNormalThe [facility] HospitalComment on above:Order Comment: , Pre-kidney transplant work-up. Please evaluate vessels for kidney transplant , Height (ft.): 5 ft 2 in , Weight (lbs): 207 , Pre-kidney transplant work-up. Please evaluate vessels for kidney transplant , Height (ft.): 5 ft 2 in , Weight (lbs): 207 , , , Ordering Provider- HAIDER FRENCH MD , DIRECT BILI on 16-08-5469Zqinnsbxf.direct [Mass/Vol]0.0 mg/dLNormal0.0-0.2The [facility] HospitalComment on above:Performed By: #### 50138, 44523, 96147 #### [facility] [address] [place] [address], USAEPSTEIN LAGUERRE VIRUS ABon 65-96-5214RM VCA IGG2.35NormMemorial Health System Marietta Memorial HospitalComment on above:Order Comment: CONSISTENT WITH PAST EBV INFECTIONResult Comment: NORMAL RANGES: < OR = 0.9O NEGATIVE ; NO DETECTABLE IgG ANTIBODY TO EBV-VCA 0.91 - 1.09 EQUIVOCAL; REPEAT TESTING SUGGESTED > OR = 1.10 POSITIVE ; INDICATES PRESENCE OF DETECTABLE IgG ANTIBODY TO EBVPerformed By: #### 93352, 84387, 85781, 60915, 61144 #### [facility] [address] [place] [address], USAEB VCA IGM0.00NoSelect Medical Specialty [facility] Comment on above:Order Comment: CONSISTENT WITH PAST EBV INFECTIONResult Comment: NORMAL RANGES: < OR = 0.9O NEGATIVE ; NO SIGNIFICANT LEVEL OF DETECTABLE EBV-VCA IgM AB 0.91 - 1.09 EQUIVOCAL; REPEAT TESTING SUGGESTED > OR = 1.10 POSITIVE ; SIGNIFICANT LEVEL OF DETECTABLE EBV-VCA IgM ABPerformed By: #### 51447, 14124, 65317, 50752, 62950 #### [facility] [address] [facility] [place] [address], USAHEMOGLOBIN A1Con 22-51-5240Ketbmyi [Moles/Vol]120 mmol/L NormalThe [facility] HospitalComment on above:Performed By: #### 34738, 24568 #### [facility] [address] [facility] [place] [address], LWRFkT9f (Bld) [Mass fraction]5.8 %Normal4.0-6.0The [facility] HospitalComment on above:Performed By: #### 43562, 40053 #### [facility] [address] [facility] [place] [address], USAHEPATITIS A ANTIBODY IGMon 90-43-7627RTX A AB IGM Non-ReactiveNormalNONREACTIVEThe [facility] HospitalComment on above:Performed By: #### 27012, 93901, 21187, 61277, 33618 #### [facility] [address] [facility] [place] [address], USAHEPATITIS B CORE ANTIBODYon 44-98-0423BMA B CORE AB Non-ReactiveNormalNONREACTIVEThe [facility] HospitalComment on above:Performed By: #### 15897, 88718, 01321, 68692, 75104 #### [facility] [address] [facility] [place] [address], USAHEPATITIS B SURFACE ANTIBODY QUANTon 11-02-3300YNQ B SURF AB1.14 mIU/mlNormalThe [facility] HospitalComment on above: Result Comment: INTERPRETATION: NONREACTIVE<8.00 mIU/mL INDETERMINATE8.00 - 12.00 mIU/mL REACTIVE>12 mIU/mLPerformed By: #### 31826, 74794, 95070, 43631, 35358 #### [facility] [address] [place] [address], USAHEPATITIS B SURFACE ANTIGEN QUALon 14-24-8558ABA B SURF AG QUALNon-ReactiveNormalNONREACTIVEThe [facility] HospitalComment on above:Performed By: #### 13069, 24064, 81816, 15896, 28202 #### [facility] [address] [place] [address], USAHEPATITIS C ANTIBODYon 59-26-3883EXAA-HCVNon-ReactiveNormal NONREACTIVEThe [facility] HospitalComment on above:Performed By: #### 49269, 09090, 51841, 81004, 18215 #### [facility] [address] [facility] [place] [address], USAHIV1 AND 2 COMBO 4Gon 14-06-5122ABD COMBONegativeNormal NEGATIVEThe [facility] HospitalComment on above:Performed By: #### 39075, 61351, 23272, 51081, 63958 #### [facility] [address] [facility] [place] [address], USAHLA ABC CLASS I TYPINGon 2A*-1 XSUGBCXKSK7Cgzeji The [facility] HospitalComment on above:Order Comment: Some of the [...] not probable, due to frequency.Performed By: #### 26168, 02500, 25981, 52653, 59298 #### [facility] [address] [place] [address], *-2 ENYGXWTJOA9DzrytgIxv [facility] HospitalComment on above:Order Comment: Some of the [...] probable, due to frequency. Performed By: #### 92920, 77555, 92176, 74580, 46203 #### [facility] [address] [place] [address], USAB*-1 AFQYZTLGRC81CxstaqUeyParkwood HospitalCommunson healthcare [facility] on above:Order Comment: Some of the [...] probable, due to frequency. Performed By: #### 51144, 13891, 85610, 04044, 52893 #### [facility] [address] [facility] [place] [address], USAB*-2 YXZMAXDNRZ14YcosgbXuwParkwood HospitalCommunson healthcare grayling hospital on above:Order Comment: Some of the [...] probable, due to frequency. Performed By: #### 38752, 01647, 95545, 54032, 17896 #### [facility] [address] [place] [address], USABw*-1 PCXSOCJXUQ9ClpaxzPhlParkwood HospitalComment on above:Order Comment: Some of the [...] probable, due to frequency. Performed By: #### 71175, 94311, 00765, 85953, 05057 #### [facility] [address] [place] [address], USABw*-2 ZSYHYDGOOU8RhglpsDjaParkwood HospitalComment on above:Order Comment: Some of the [...] probable, due to frequency. Performed By: #### 50231, 19891, 87291, 12443, 73187 #### [facility] [address] [facility] [place] [address], USAC*-1 VQJCXMOGHH0HcwbtdUicParkwood HospitalComment on above:Order Comment: Some of the [...] probable, due to frequency. Performed By: #### 92589, 08162, 97855, 75835, 37978 #### [facility] [address] [place] [address], USAC*-2 HRIUSYOPNP6ZwrlwfObcParkwood HospitalComment on above:Order Comment: Some of the [...] probable, due to frequency. Performed By: #### 54403, 07136, 82542, 97300, 22948 #### [facility] [address] [facility] [place] [address], USAMETHODClass I Typing by PCR-SSOP LuminexParkwood HospitalComment on above:Order Comment: Some of the [...] not probable, due to frequency.Performed By: #### 02750, 62192, 60314, 90487, 82742 #### [facility] [address] [facility] [place] [address], USASIGNED [facility] Comment on above:Order Comment: Some [...] due to frequency.Result Comment: Nelson Noriega, MS,CHT(DONA),MT(ASCP) Exhaust Equipment Operator, Transplant ImmunologyPerformed By: #### 23484, 17907, 48456, 25527, 11048 #### [facility] [address] [place] [address], USAHLA [address] CLASS II TYPINGon 04-13-1453YBJ1*-1 OMIPTZMOTP39:01 Parkwood HospitalComment on above:Order Comment: Some of the [...] not probable, due to frequency.Performed By: #### 27295, 15852, 38031, 41962, 97952 #### [facility] [address] [place] [address], USADPB1*-2 VEOYQXHIUO49:02NoSelect Medical Specialty Hospital - CantonComment on above:Order Comment: Some of the reagents [...] probable, due to frequency. Performed By: #### 69147, 05299, 30953, 76574, 56171 #### [facility] [address] [place] [address], USADQA1*-1 WJVXKOCNFA89XsbvarTnqParkwood HospitalComment on above:Order Comment: Some of the [...] probable, due to frequency. Performed By: #### 34546, 06421, 54308, 00623, 23262 #### [facility] [address] [facility] [place] [address], USADQA1*-2 YYKKRJMXSU39KfydugYknParkwood HospitalComment on above:Order Comment: Some of the [...] probable, due to frequency. Performed By: #### 62486, 17873, 11905, 08494, 31698 #### [facility] [address] [facility] [place] [address], USADQB1*-1 KGRCOSYCMH5EpjyyaAje[address] [place], [place] [address]Comment on above:Order Comment: Some of the reagents [...] probable, due to frequency. Performed By: #### 69673, 36416, 30968, 81605, 68698 #### [facility] [address] [facility] [place] [address], USADQB1*-2 PGLUUDPGSI7JfibofYkaParkwood HospitalComment on above:Order Comment: Some of the [...] probable, due to frequency. Performed By: #### 74563, 15360, 17465, 30095, 41872 #### [facility] [address] [facility] [place] [address], USADRB1*-1 [address]OLNDGSV[address]ErrmbgM[address] [place], [place] [address]Comment on above:Order Comment: Some of the reagents [...] probable, due to frequency. Performed By: #### 41945, 81166, 74031, 12975, 17977 #### [facility] [address] [facility] [place] [address], USADRB1*-2 WQRQPYVJYT82XqhptvTbs[address] [place], [place] [address]Comment on above:Order Comment: Some of the reagents [...] probable, due to frequency. Performed By: #### 50124, 06646, 33963, 99797, 23203 #### [facility] [address] [facility] [place] [address], USADRB3*-1 WUDPGHTLBF98HftkzaTfo[address] [place], [place] [address]Comment on above:Order Comment: Some of the reagents used for clinical histocompatibility testing havebeen approved by the [facility] for research only. Through our certificationby CLIA to perform high complexity testing and through our stringentquality control program, these reagents have been rigorously tested andvalidated for clinical use. Typing performed may include components ofSSOP and/or SSP testing in order to obtain a valid HLA typing. Otherrare HLA alleles may be possible, but not probable, due to frequency. Performed By: #### 10024, 85486, 22836, 43474, 20943 #### [facility] [address] [facility] [place] [place] [address], USAMETHODClass II Typing by PCR-SSOP LuminexNoUniversity Hospitals Health Systeme [facility] HospitalComment on above:Order Comment: Some of the [...] not probable, due to frequency.Performed By: #### 22840, 25143, 94094, 61663, 80691 #### [facility] [address] [facility] [place] [place] [address], USALIPID PROFILEon 39-16-3884Sfkcjmjuyyo [Mass/Vol]221 mg/dL Lcbo552-861Oot [facility] HospitalComment on above:Result Comment: CHOLESTEROL REFERENCE RANGE: 20 YEARS AND OLDER CARDIOVASCULAR RISK Less than 200 mg/dl Low Risk 200 to 239 mg/dl Borderline Risk 240 mg/dl and greater High RiskPerformed By: #### 03910, 84700, 26153, 24901, 92863 #### [facility] [address] [facility] [place] [address], USACholesterol in HDL [Mass/Vol]40 mg/eHBpjvfn85-04Raw [facility] HospitalComment on above:Result Comment: Slight variation in normal range could be due to gender and/or age. HDL CHOLESTEROL REFERENCE RANGE: 20 years and older Cardiovascular Risk > or =60 mg/dL Desirable 40 TO 59 mg/dL Low Risk <40 mg/dL High RiskPerformed By: #### 44283, 82942, 79995, 39728, 97907 #### [facility] [address] [facility] [place] [address], USACholesterol in LDL [Mass/Vol]101 mg/dLNormal0-130The [facility] HospitalComment on above:Result Comment: LDL IS A CALCULATION LDL IS ONLY VALID IF THE TRIG IS LESS THAN 400.Performed By: #### 59630, 68424, 07827, 65348, 06233 #### [facility] [address] [place] [address], USACholesterol.total/Cholesterol in HDL [Mass ratio]5.5 {ratio}High.0-4.5The [facility] HospitalComment on above: Performed By: #### 74237, 27110, 38094, 95806, 86428 #### [facility] [address] [place] [address], USANON-HDL XNCDXGOHHCU995 mg/dLNoSelect Medical Specialty Hospital - CantonComment on above:Performed By: #### 80937, 83744, 83213, 37742, 61827 #### [facility] [address] [facility] [place] [address], USATriglyceride [Mass/Vol]402 mg/pULckb96-993Fal [facility] HospitalComment on above:Result Comment: TRIGLYCERIDE REFERENCE RANGE: 20 YEARS AND OLDER CARDIOVASCULAR RISK LESS THAN 150 mg/dl LOW RISK 150 TO 199 mg/dl BORDERLINE RISK 200 mg/dl AND GREATER HIGH RISKPerformed By: #### [id number], [id number], [id number], 71183, 01340 #### [facility] [address] [place] [address], USAVLDL CHOL80 mg/dLHigh0-40The [facility] HospitalComment on above:Performed By: #### [id number], [id number], 81862, [id number], [id number] #### [facility] [address] [place] [address], USAMUMPS IGG BLDon [id number] [id number] Medical Specialty Hospital - CantonComment on above:Result Comment: NORMAL RANGES: < OR = 0.9O NEGATIVE ; NO DETECTABLE IgG ANTIBODY TO MUMPS 0.91 - 1.09 EQUIVOCAL; REPEAT TESTING SUGGESTED > OR = 1.10 POSITIVE ; INDICATES PRESENCE OF DETECTABLE IgG ANTIBODY TO MUMPSPerformed By: #### [id number], 79921, 43289, 54796, 48543 #### [facility] [address] [place] [address], USARUBELLAon [id number] HospitalComment on above:Result Comment: NORMAL RANGES: < OR = 0.9O NEGATIVE ; NO DETECTABLE IgG ANTIBODY TO RUBELLA 0.91 - 1.09 EQUIVOCAL; REPEAT TESTING SUGGESTED > OR = 1.10 POSITIVE ; INDICATES PRESENCE OF DETECTABLE IgG ANTIBODY TO RUBELLA VIRUSPerformed By: #### 73406, 71809, 26243, 18296, 85581 #### [facility] [address] [facility] [place] [address], USARUBEOLA MEASLES IGGon 71-53-0901KLUHZ IGG6.43NoSelect Medical Specialty Hospital - CantonComment on above:Result Comment: NORMAL RANGES: < OR = 0.9O NEGATIVE ; NO DETECTABLE IgG ANTIBODY TO RUBEOLA 0.91 - 1.09 EQUIVOCAL; REPEAT TESTING SUGGESTED > OR = 1.10 POSITIVE ; INDICATES PRESENCE OF DETECTABLE IgG ANTIBODY TO RUBEOLAPerformed By: #### 20672, 66937, 97614, 83019, 02082 #### [facility] [address] [facility] [place] [address], USASINGLE ANTIGEN CLASS 1on 12-21-3436HMJMGJNchpc I Single AntigenNoSelect Medical Specialty Hospital - CantonComment on above:Order Comment: Some of the reagents [...] not probable, due to frequency.Performed By: #### 30878, 94439, 02238, 70166, 64607 #### [facility] [address] [facility] [place] [address], USASINGLE ANTIGEN CLASS 2on [id number]a City HospitalComment on above:Order Comment: Some of the [...] added to the watch list.Performed By: #### 47721, 13028, 62801, 48880, 95574 #### [facility] [address] [place] [address], USAResult Comment: Class I Antigen Microbeads Potential specificites added to the watch list.TNGW4KgyfnwHkbParkwood HospitalComment on above:Order Comment: Some of the [...] probable, due to frequenc y.Performed By: #### 22759, 98017, 77161, 39872, 54319 #### [facility] [address] [place] [address], USAMETHODClass II Single AntigenNoSelect Medical Specialty Hospital - CantonComment on above:Order Comment: Some of the reagents [...] probable, due to frequency. Performed By: #### 23261, 93822, 98610, 51024, 24331 #### [facility] [address] [place] [address], USAT PROT UR Yesy 02-12-2022U TOTAL KWJHNDO21.0 mg/dLNormal The [facility] Park HospitalComment on above:Result Comment: There are no established reference values for random urine specimensPerformed By: #### 24308, 79209, 74946, 33976, 57068 #### [facility] [address] [place] [address], USATB QUANTIFERON PLUSon 50-28-0856OLMGELU MINUS NIL>10.00 NormalThe [facility] Bay Park HospitalComment on above:Performed By: #### 63220 #### [facility] [address] [place] [address], USANIL0.03 IU/mLNormalThe [facility] Comment on above:Performed By: #### 75871 #### [facility] [address] [facility] [place] [address], USATB QUANTIFERONNegativeNormalNEGATIVEThe [facility] Park HospitalComment on above:Result Comment: Quantiferon TB Gold Interpretation (IU/mL): NEGATIVE: M. tuberculosis infection not likely. Nil: <=8.0 TB1 Antigen minus Nil (IK7MM-TFL): <0.35 OR >=0.35; and <25% of Nil value. TB2 Antigen minus Nil (YV2GI-AGG): <0.35 OR >=0.35; and <25% of Nil value. Mitogen minus Nil (MARY-NIL): >=0.50 NOTE: Diagnosing or excluding tuberculosis disease, and assessing the probability of LTBI, requires a combination of epidemiological, historical, medical, and diagnostic findings that should be taken into account when interpreting QuantiFERON (TM)-TB Gold results. See general guidance on the diagnosis and treatment of TB disease and LTBI (https://www.cdc.gov/tb/publications/guidlines/default.htmPerformed By: #### 98635 #### [facility] [address] [facility] [place] [address], USATB1 AG0.05 IU/mLNormalThe [facility] Park HospitalComment on above:Performed By: #### 94742 #### [facility] [address] [place] [address], USATB1 AG MINUS NIL0.02 IU/mLNormalThe [facility] Park HospitalComment on above:Performed By: #### 09704 #### [facility] [address] [place] [address], USATB2 AG0.05 IU/mLNormalThe [facility] Park HospitalComment on above:Performed By: #### 29419 #### [facility] [address] [place] [address], USATB2 AG MINUS NIL0.02 IU/mLNormalThe [facility] Park HospitalComment on above:Performed By: #### 13095 #### [facility] [address] [place] [address], USAUA,MICROSCOPIC REQUIREDon 04-15-0541Bawiutkvxc (U)SL CLOUDY AbnormalCLEARThe [facility] HospitalComment on above:Performed By: #### 87941, 10207, 35142, 81617, 47741 #### [facility] [address] [place] [address], USABilirubin Ql (U)NegativeNormalNEGATIVEThe [facility] Park HospitalComment on above:Performed By: #### 77570, 52257, 93825, 55823, 93844 #### [facility] [address] [place] [address], USAColor (U)STRAWAbnormalYELLOWThe [facility] Park HospitalComment on above:Performed By: #### 84596, 26656, 90667, 87300, 83367 #### [facility] [address] [place] [address], USAEPISMANYAbnormalFEW,OCC,NONE SEENThe University of [place] Medical CenterComment on above:Performed By: #### 60583, 73467, 86558, 39124, 34064 #### [facility] [address] [place] [address], USAGlucose Ql (U)50 mg/dLAbnormalNEGATIVEThe [facility] HospitalComment on above:Performed By: #### 44024, 15706, 77267, 85815, 09074 #### [facility] [address] [place] [address], USAHemoglobin Ql (U)NegativeNormalNEGATIVEThe [facility] Park HospitalComment on above:Performed By: #### 52901, 43915, 81077, 86953, 11214 #### [facility] [address] [place] [address], USAKETONENegativeNormalNEGATIVEThe [facility] Park HospitalComment on above:Performed By: #### 53329, 90374, 68169, 42893, 57067 #### [facility] [address] [place] [address], USALEUK ESTERMODERATEAbnormalNEGATIVEThe [facility] HospitalComment on above:Performed By: #### 19181, 69533, 86889, 30563, 39386 #### [facility] [address] [place] [address], USANitrite Ql (U)NegativeNormalNEGATIVEThe [facility] HospitalComment on above:Performed By: #### 38603, 29667, 04686, 43011, 03272 #### [facility] [address] [place] [address], USApH (U)7.0 [pH]Normal5.0-8.0The [facility] Park HospitalComment on above:Performed By: #### 03275, 11461, 08163, 15811, 91154 #### [facility] [address] [place] [address], USAProtein Ql (U)30 mg/dLAbnormalNEGATIVEThe [facility] HospitalComment on above:Performed By: #### 49946, 59099, 02077, 81643, 96780 #### [facility] [address] [place] [address], USARBCNONE SEENNormalNONE SEENThe [facility] HospitalComment on above:Performed By: #### 85757, 81284, 59878, 27952, 20344 #### [facility] [address] [facility] [place] [address], USASPEC GRAV1.334Jqd7.015-1.020The [facility] HospitalComment on above:Performed By: #### 38548, 28329, 57721, 96999, 47257 #### [facility] [address] [facility] [place] [address], USAWBC NG78-70ZbsygbfzSGVP SEENThe [facility] HospitalComment on above:Performed By: #### 86738, 11950, 61720, 93565, 22622 #### [facility] [address] [facility] [place] [address], USAVARICELLA ZOSTER IGGon 71-05-8003NBPSRZAAO IGG3.29NormalThe [facility] HospitalComment on above:Result Comment: NORMAL RANGES: < OR = 0.9O NEGATIVE ; NO DETECTABLE IgG ANTIBODY TO VARICELLA-ZOSTER VIRUS 0.91 - 1.09 EQUIVOCAL; REPEAT TESTING SUGGESTED > OR = 1.10 POSITIVE ; INDICATES PRESENCE OF DETECTABLE IgG ANTIBODY TO VARICELLA-ZOSTER VIRUSPerformed By: #### 60978, 77055, 69442, 97421, 14150 #### [facility] [address] [facility] [place] [address], USAPTH INTACTon 55-62-2936RGN, Oxheyn738 pg/mLCritically high 15-65Parkwood HospitalComment on above:Performed By: #### MG, URIC, RENAL #### [facility] [address] [place] [address] Dr. Hari Steele 43-98-9515Hkyfmdgs [Mass/Vol]256.0 ng/mLCritically high6.2-137.0The [facility] RehabilitationComment on above:Performed By: #### MG, URIC, RENAL #### [facility] [address] [place] [address] Dr. Hari PalmerHEMOGRAM AND PLATELon 87-44-6991Fxcioqxbom (Bld) [Volume fraction]33.7 %Critically low36.0-48.0The [facility] RehabilitationComment on above: Performed By: #### MG, URIC, RENAL #### [facility] [address] [place] [address] Dr. Hari PalmerHemoglobin (Bld) [Mass/Vol]10.9 g/dLCritically low12.0-16.0The [facility] Centerment on above:Performed By: #### MG, URIC, RENAL #### [facility] [address] [place] [address] Dr. Hari Sargent (RBC) [Entitic mass]31.4 tpBduuzh31.7-34.0The [facility] RehabilitationComment on above:Performed By: #### MG, URIC, RENAL #### [facility] [address] [place] [address] Dr. Hari Sargent (RBC) [Mass/Vol]32.3 g/qHKaytig09.9-35.2The [facility] Centerment on above:Performed By: #### MG, URIC, RENAL #### [facility] [address] [place] [address] Dr. Hari Sargnet (RBC) [Entitic vol]97.1 zCEemscr05.0-99.0The [facility] on above:Performed By: #### MG, URIC, RENAL #### [facility] [address] [place] [address] Dr. Hari PalmerPLT314 103/bkMhbxld989-849Ttg [facility] RehabilitationComment on above: Performed By: #### MG, URIC, RENAL #### [facility] [address] [address] [address] Hari WayC3.47 106/ulCritically low4.20-5.40The [facility] RehabilitationComment on above:Performed By: #### MG, URIC, RENAL #### [facility] [address] [place] [address] Dr. Hari PalmerWBC9.4 103/ulNormal4.0-11.0The [facility] RehabilitationComment on above: Performed By: #### MG, URIC, RENAL #### [facility] [address] [place] [address] Dr. Hari Riley AND TIBCon 12-03-2021% GOYURTVGSG60.0 %NormalThe [facility] RehabilitationComment on above:Performed By: #### MG, URIC, RENAL #### [facility] [address] [place] [address] Dr. Hari Riley [Mass/Vol]52.0 ug/qQIpkfug55.0-170.0The [facility] Comment on above:Performed By: #### MG, URIC, RENAL #### [facility] [address] [place] [address] Dr. Hari PalmerTIBC TTCMPS963.0 ug/lZRzpkam299.0-497.0The [facility] Comment on above:Performed By: #### MG, URIC, RENAL #### [facility] [address] [place] [address] Dr. Hari PalmerMAGNESIUMon 10-70-5036Cidpxmxik [Mass/Vol]2.1 mg/dLNormal1.6-2.3 The [facility] RehabilitationComment on above:Performed By: #### MG, URIC, RENAL #### [facility] [address] [place] [address] Dr. Hari MorenoAL FUNCTION PANELon 49-45-4526Dnlmmjt [Mass/Vol]3.6 g/dLNormal 3.5-5.0The [facility] RehabilitationComment on above:Performed By: #### MG, URIC, RENAL #### [facility] [address] [place] [address] Dr. Hari PalmerCalcium [Mass/Vol]8.4 mg/dLNormal8.4-10.2The [facility] Comment on above:Performed By: #### MG, URIC, RENAL #### [facility] [address] [address] [address] Hari PalmerChloride [Moles/Vol]101 mmol/VDhlckg44-276Zvr [facility] Comment on above:Performed By: #### MG, URIC, RENAL #### [facility] [address] [address] [address] Hari PalmerCO2 [Moles/Vol]24.3 mmol/UWovpva45.0-30.0The [facility] Comment on above:Performed By: #### MG, URIC, RENAL #### [facility] [address] [place] [address] Dr. Hari PalmerCreatinine [Mass/Vol]3.32 mg/dLCritically high0.52-1.04The [facility] RehabilitationComment on above:Performed By: #### MG, URIC, RENAL #### [facility] [address] [place] [address] Dr. Noriega ChangEGFR-AF IIBDRPBP33 mL/min/1.52c9Aoqfpohpey low>=60The [facility] RehabilitationComment on above:Performed By: #### MG, URIC, RENAL #### [facility] [address] [place] [address] Dr. Noriega ChangEGFR-NON AF FVJJZRKK81 mL/min/1.69w7Hjdmkbifyt low>=60The [facility] RehabilitationComment on above:Performed By: #### MG, URIC, RENAL #### [facility] [address] [place] [address] Dr. Hari PalmerGlucose [Mass/Vol]119 mg/dLCritically ajat78-097Bym [facility] RehabilitationComment on above:Performed By: #### MG, URIC, RENAL #### [facility] [address] [place] [address] Dr. Hari PalmerPhosphate [Mass/Vol]4.7 mg/dLCritically high2.5-4.5The [facility] RehabilitationComment on above:Performed By: #### MG, URIC, RENAL #### [facility] [address] [address] [address] Hari PalmerPotassium [Moles/Vol]4.0 mmol/LNormal3.4-5.0The [facility] Comment on above:Performed By: #### MG, URIC, RENAL #### [facility] [address] [address] [address] Hari PalmerSodium [Moles/Vol]135 mmol/LCritically tkm812-401Xag [facility] RehabilitationComment on above:Performed By: #### MG, URIC, RENAL #### [facility] [address] [address] [address] Hari PalmerUrea nitrogen [Mass/Vol]42.0 mg/dLCritically high7.0-17.0The [facility] RehabilitationComment on above:Performed By: #### MG, URIC, RENAL #### [facility] [address] [place] [address] Dr. Hari Shafer RANDOM W/MICROSCOPICon 97-91-8613JOJXHOFUNUBIVPrvpjiulQHKJ SEENParkwood HospitalComment on above:Performed By: #### UAMIC #### [facility] [address] [place] [address] Dr. Hari Reyesirubin Ql (U)NegativeNormalNEGATIVEParkwood Hospital Comment on above:Performed By: #### UAMIC #### [facility] [address] [place] [address] Dr. Hari PalmerCASTNONE SEENNormalNONE SEENParkwood HospitalComment on above:Performed By: #### UAMIC #### [facility] [address] [place] [address] Dr. Hari Boydarity (U)CLEARNormalCLEARParkwood HospitalComment on above: Performed By: #### UAMIC #### [facility] [address] [place] [address] Dr. Hari Sims (U)LT. YELLOWNormalYELLOWThe [facility] RehabilitationComment on above:Performed By: #### UAMIC #### [facility] [address] [address] [address] Hari PalmerCrystals LM Nom (Urine sed)NONE SEENNormalNONE SEENParkwood HospitalComment on above:Performed By: #### UAMIC #### [facility] [address] [address] [address] Noriega ChangEpithelial cells LM Ql (Urine sed)FEWAbnormalNONE SEEN /RAREThe [facility] RehabilitationComment on above:Performed By: #### UAMIC #### [facility] [address] [address] [address] Hari PalmerGlucose Ql (U)100 mg/dlAbwindsorNEGMount Carmel Health System on above:Performed By: #### UAMIC #### [facility] [address] [place] [address] Dr. Hari PalmerHemoglobin Ql (U)TRACE-INTACTAbnormalNEGMagruder HospitalComment on above:Performed By: #### UAMIC #### [facility] [address] [place] [address] Dr. Hari PalmerKetones Ql (U)NegativeNormalNEGATIVEParkwood HospitalComment on above:Performed By: #### UAMIC #### [facility] [address] [place] [address] Dr. Hari BanuelosOCYTESSMALLAbnormalNEGMagruder HospitalComment on above:Performed By: #### UAMIC #### [facility] [address] [place] [address] Dr. Hari PalmerMUCOUSNONE SEENNormalNONE SEENParkwood HospitalComment on above:Performed By: #### UAMIC #### [facility] [address] [place] [address] Dr. Hari Dalytrite Ql (U)NegativeNormalNEGATIVEParkwood HospitalComment on above:Performed By: #### UAMIC #### [facility] [address] [address] [address] Hari PalmerpH (U)6.0 [pH]Normal5-9The [facility] RehabilitationComment on above: Performed By: #### UAMIC #### [facility] [address] [place] [address] Dr. Hari PalmerGyuhyNQX2-1Zuhbgz5-3Wun [facility] RehabilitationComment on above:Performed By: #### UAMIC #### [facility] [address] [place] [address] Dr. Hari PalmerSPEC GRAVITY1.997Gjouev7.005-<=1.025The [facility] RehabilitationComment on above:Performed By: #### UAMIC #### [facility] [address] [place] [address] Dr. Hari Shafer PROTEINNegativeNormalNEGATIVE/ TRACEThe [facility] Comment on above:Performed By: #### UAMIC #### [facility] [address] [place] [address] Dr. Hari Bartholomewbilinogen Qn (U)0.2 {Janice'U}/dLNormal0.2 - 1.0The [facility] RehabilitationComment on above:Performed By: #### UAMIC #### [facility] [address] [place] [address] Dr. Hari PalmerWBC5-10AbnormalNONE SEENThe [facility] RehabilitationCommunson healthcare [facility] on above: Performed By: #### UAMIC #### [facility] [address] [place] [address] Dr. Hari Britt ACID SERUMon 43-58-4744Opeqw [Mass/Vol]4.6 mg/dLNormal 2.5-6.2The [facility] RehabilitationComment on above:Performed By: #### MG, URIC, RENAL #### [facility] [address] [place] [address] Dr. Hari Hadley T PROTEIN CREAT RATIOon 88-51-8379Tvkmyox (U) [Mass/Vol] 31.7 mg/dLCritically high<=12.0The [facility] RehabilitationComment on above:Performed By: #### MG, URIC, RENAL #### [facility] [address] [place] [address] Dr. Hari Prince PROT CREAT RAT0.54NoRegency Hospital ToledoComment on above: Performed By: #### MG, URIC, RENAL #### [facility] [address] [place] [address] Dr. Hari Hadley CREAT59.03 mg/mUWzfkks14.00-300.00[facility] Comment on above:Performed By: #### MG, URIC, RENAL #### [facility] [address] [place] [address] Dr. Hari PalmerVITAMIN D 25 OHon 28-98-6421QHS D 25-OH38.1 ng/mLNormalThe [facility] RehabilitationComment on above:Performed By: #### MG, URIC, RENAL #### [facility] [address] [place] [address] Dr. Hari Peng RANGESSEE BELOWPremier Health Miami Valley Hospital NorthComment on above: Result Comment: <20 ng/mL Vit D deficient 20 - <30 ng/mL Vit D insufficient 30 - 100 ng/mL Vit D sufficient >100 ng/mL Potential ToxicityPerformed By: #### MG, URIC, RENAL #### [facility] [address] [place] [address] Dr. Hari Cisse INTACTon 16-01-2647WJH, Xbyvwo585 pg/mLCritically wkjo34-35 The [facility] RehabilitationComment on above:Performed By: #### PTHINT #### [facility] [address] [place] [address] Dr. Hari Johnson AUTO DIFFon 28-21-3140LYRX #0.1 103/ulNormal0.0-0.1Parkwood HospitalComment on above:Performed By: #### MG, URIC, RENAL #### [facility] [address] [place] [address] Dr. Hari PalmerBasophils/100 WBC (Bld)0.6 %Normal0.2-2.0[facility] Comment on above:Performed By: #### MG, URIC, RENAL #### [facility] [address] [place] [address] Dr. Hari [place] #0.3 103/ulNormal0.0-0.7The [facility] RehabilitationComment on above: Performed By: #### MG, URIC, RENAL #### [facility] [address] [place] [address] Dr. Hari Brandtosinophils/100 WBC (Bld)3.5 %Normal0.9-7.0The [facility] Comment on above:Performed By: #### MG, URIC, RENAL #### [facility] [address] [place] [address] Dr. Hari Brandtrythrocyte distribution width (RBC) [Ratio]13.8 %Uqsixi21.0-15.0 The [facility] RehabilitationComment on above:Performed By: #### MG, URIC, RENAL #### [facility] [address] [place] [address] Dr. Hari PalmerHematocrit (Bld) [Volume fraction]32.8 %Critically low36.0-48.0 The [facility] RehabilitationComment on above:Performed By: #### MG, URIC, RENAL #### [facility] [address] [place] [address] Dr. Hari PalmerHemoglobin (Bld) [Mass/Vol]10.6 g/dLCritically low12.0-16.0The [facility] RehabilitationComment on above:Performed By: #### MG, URIC, RENAL #### [facility] [address] [place] [address] Dr. Hari Grissom #0.14 10e3/ulCritically high0.00-0.03The [facility] Comment on above:Performed By: #### MG, URIC, RENAL #### [facility] Laboratory [address] [place] [address] Dr. Hari Grissom %1.5 %Critically high0.0-0.5The [facility] For RehabilitationComment on above:Performed By: #### MG, URIC, RENAL #### [facility] Laboratory [address] [place] [address] Dr. Hari Haywood #1.8 103/ulNormal1.2-3.8The [facility] For RehabilitationComment on above:Performed By: #### MG, URIC, RENAL #### [facility] Laboratory [address] [place] [address] Dr. Hari Weavermphocytes/100 WBC (Bld)19.3 %Critically low20.5-60.0The [facility] RehabilitationComment on above:Performed By: #### MG, URIC, RENAL #### [facility] Laboratory [address] [place] [address] Dr. Hari CarreroUAL DIFF REQNONormalThe [facility] For RehabilitationComment on above: Performed By: #### MG, URIC, RENAL #### [facility] Laboratory [address] [place] [address] Dr. Hari Sargent (RBC) [Entitic mass]31.4 ibHkbcme90.7-34.0The [facility] RehabilitationComment on above:Performed By: #### MG, URIC, RENAL #### [facility] Laboratory [address] [place] [address] Dr. Hari Sargent (RBC) [Mass/Vol]32.3 g/vOGcdgpa23.9-35.2The [facility] RehabilitationComment on above:Performed By: #### MG, URIC, RENAL #### [facility] Laboratory [address] [place] [address] Dr. Hari Sargent (RBC) [Entitic vol]97.0 cKXtkvxy09.0-99.0The [facility] RehabilitationComment on above:Performed By: #### MG, URIC, RENAL #### [facility] Laboratory [address] [place] [address] Dr. Hari Horan #0.4 103/ulNormal0.3-0.8The [facility] RehabilitationComment on above:Performed By: #### MG, URIC, RENAL #### [facility] Laboratory [address] [place] [address] Dr. Hari Barkleyocytes/100 WBC (Bld)4.2 %Normal1.7-12.0The [facility] Comment on above:Performed By: #### MG, URIC, RENAL #### [facility] Laboratory [address] [place] [address] Dr. Hari Thompson #6.5 103/ulNormal1.4-6.5The [facility] RehabilitationComment on above:Performed By: #### MG, URIC, RENAL #### [facility] Laboratory [address] [place] [address] Dr. Hari Carrilloutrophils/100 WBC (Bld)70.9 %Sktckf04.0-75.0The [facility] RehabilitationComment on above:Performed By: #### MG, URIC, RENAL #### [facility] Laboratory [address] [place] [address] Dr. Hari Villanuevalet mean volume (Bld) [Entitic vol]9.0 fLCritically low 9.5-13.5The [facility] RehabilitationComment on above:Performed By: #### MG, URIC, RENAL #### [facility] Laboratory [address] [place] [address] Dr. Hari PalmerPLT289 103/kgZmhxko182-897Stf [facility] Centerment on above: Performed By: #### MG, URIC, RENAL #### [facility] Laboratory [address] [place] [address] Dr. Hari PalmerRBC3.38 106/ulCritically low4.20-5.40The [facility] on above:Performed By: #### MG, URIC, RENAL #### [facility] Laboratory [address] [place] [address] Dr. Hari RicardoBC9.1 103/ulNormal4.0-11.0The [facility] on above: Performed By: #### MG, URIC, RENAL #### [facility] Laboratory [address] [place] [address] Dr. Hari PalmerFERRITINon 84-09-4456Rkmsssnb [Mass/Vol]204.0 ng/mLCritically high6.2-137.0The [facility] on above:Performed By: #### MG, URIC, RENAL #### [facility] Laboratory [address] [place] [address] Dr. Hari Riley AND TIBCon 09-01-2021% HHPGCZTFNL45.4 %NormalThe [facility] RehabilitationComment on above:Performed By: #### MG, URIC, RENAL #### [facility] Laboratory [address] [place] [address] Dr. Hari Riley [Mass/Vol]80.0 ug/rKXyohiq65.0-170.0The [facility] Comment on above:Performed By: #### MG, URIC, RENAL #### [facility] Laboratory [address] [place] [address] Dr. Hari PalmerTIBC NBTHKP829.0 ug/tRDbscrl037.0-497.0[facility] Comment on above:Performed By: #### MG, URIC, RENAL #### [facility] Laboratory [address] [place] [address] Dr. Hari PalmerMAGNESIUMon 61-46-6732Sdhldcayf [Mass/Vol]2.2 mg/dLNormal1.6-2.3 The [facility] RehabilitationComment on above:Performed By: #### UAMIC #### [facility] Laboratory [address] [place] [address] Dr. Hari MorenoAL FUNCTION PANELon 43-82-1340Crpknvh [Mass/Vol]3.5 g/dLNormal 3.5-5.0The [facility] RehabilitationComment on above:Performed By: #### MG, URIC, RENAL #### [facility] Laboratory [address] [place] [address] Dr. Hari PalmerCalcium [Mass/Vol]8.7 mg/dLNormal8.4-10.2The [facility] Comment on above:Performed By: #### MG, URIC, RENAL #### [facility] Laboratory [address] [place] [address] Dr. Hari PalmerChloride [Moles/Vol]105 mmol/SDtoklp83-499Jch [facility] Comment on above:Performed By: #### MG, URIC, RENAL #### [facility] Laboratory [address] [place] [address] Dr. Hari PalmerCO2 [Moles/Vol]21.1 mmol/LCritically low22.0-30.0The [facility] RehabilitationComment on above:Performed By: #### MG, URIC, RENAL #### [facility] Laboratory [address] [place] [address] Dr. Hari PalmerCreatinine [Mass/Vol]3.63 mg/dLCritically high0.52-1.04The [facility] RehabilitationComment on above:Performed By: #### MG, URIC, RENAL #### [facility] Laboratory [address] [place] [address] Dr. Noriega ChangEGFR-AF TSDYCNML22 mL/min/1.81j4Umrdzodtfu low>=60The [facility] RehabilitationComment on above:Performed By: #### MG, URIC, RENAL #### [facility] Laboratory [address] [place] [address] Dr. Hari BrandtGFR-NON AF BRLPFJQV88 mL/min/1.33r0Vynftgboyj low>=60The [facility] RehabilitationComment on above:Performed By: #### MG, URIC, RENAL #### [facility] Laboratory [address] [place] [address] Dr. Hari PalmerGlucose [Mass/Vol]115 mg/dLCritically pruj51-654Ojg [facility] RehabilitationComment on above:Performed By: #### MG, URIC, RENAL #### [facility] Laboratory [address] [place] [address] Dr. Hari PalmerPhosphate [Mass/Vol]4.6 mg/dLCritically high2.5-4.5The [facility] RehabilitationComment on above:Performed By: #### MG, URIC, RENAL #### [facility] Laboratory [address] [place] [address] Dr. Hari PalmerPotassium [Moles/Vol]4.2 mmol/LNormal3.4-5.0The [facility] Comment on above:Performed By: #### MG, URIC, RENAL #### [facility] Laboratory [address] [place] [address] Dr. Hari PalmerSodium [Moles/Vol]138 mmol/SWzuydl433-678Krq [facility] Comment on above:Performed By: #### MG, URIC, RENAL #### [facility] Laboratory [address] [address] [address] Hari Palma nitrogen [Mass/Vol]50.0 mg/dLCritically high7.0-17.0The [facility] on above:Performed By: #### MG, URIC, RENAL #### [facility] Laboratory [address] [address] [address] Hari Shafer RANDOM W/MICROSCOPICon 36-03-8059NKVBZLIDMUVEKWtsvdwwzYNTG SEENThe [facility] RehabilitationComment on above:Performed By: #### UAMIC #### [facility] Laboratory [address] [address] [address] Hari Reyesirubin Ql (U)NegativeNormalNEGATIVEThe [facility] Comment on above:Performed By: #### UAMIC #### [facility] Laboratory [address] [place] [address] Dr. Hari PalmerCASTBRITTE SEENNormalNONE SEENThe [facility] on above:Performed By: #### UAMIC #### [facility] Laboratory [address] [address] [address] Hari Boydarity (U)CLEARNormalCLEARThe [facility] RehabilitationComment on above: Performed By: #### UAMIC #### [facility] Laboratory [address] [address] [address] Hari Sims (U)LT. YELLOWNormalYELLOWThe [facility] RehabilitationComment on above:Performed By: #### UAMIC #### [facility] Laboratory [address] [address] [address] Hari PalmerCrystals LM Nom (Urine sed)NONE SEENNormalNONE SEENParkwood HospitalComment on above:Performed By: #### UAMIC #### [facility] Laboratory [address] [address] [address] Noriega ChangEpithelial cells LM Ql (Urine sed)MODERATEAbnormalNONE SEEN /RARE The [facility] RehabilitationComment on above:Performed By: #### UAMIC #### [facility] Laboratory [address] [address] [address] Hari PalmerGlucose Ql (U)NegativeNormalNEGATIVEMercy Health Allen Hospital HospitalComment on above:Performed By: #### UAMIC #### [facility] Laboratory [address] [place] [address] Dr. Hari PalmerHemoglobin Ql (U)TRACE-INTACTAbnormalNEGATIVEMercy Health Allen Hospital HospitalComment on above:Performed By: #### UAMIC #### [facility] Laboratory [address] [place] [address] Dr. Hari PalmerKetones Ql (U)NegativeNormalNEGATIVEMercy Health Allen Hospital HospitalComment on above:Performed By: #### UAMIC #### [facility] Laboratory [address] [place] [address] Dr. Hari PalmerLEUKOCYTESNegativeNormalNEGATIVEParkwood HospitalComment on above:Performed By: #### UAMIC #### [facility] Laboratory [address] [place] [address] Dr. Hari PalmerMUCOUSNONE SEENNormalNONE SEENParkwood HospitalComment on above:Performed By: #### UAMIC #### [facility] Laboratory [address] [place] [address] Dr. Hari PalmerNitrite Ql (U)NegativeNormalNEGATIVEParkwood HospitalComment on above:Performed By: #### UAMIC #### [facility] Laboratory [address] [place] [address] Dr. Hari PalmerpH (U)6.0 [pH]Normal5-9The [facility] RehabilitationComment on above: Performed By: #### UAMIC #### [facility] Laboratory [address] [place] [address] Dr. Hari PalmerCkrluYOK1-6Dcwypxzi7-6Nmi [facility]vue HospitalComment on above:Performed By: #### UAMIC #### [facility] Laboratory [address] [place] [address] Dr. Hari PalmerSPEC GRAVITY1.408Kshgui3.005-<=1.025The [facility] RehabilitationComment on above:Performed By: #### UAMIC #### [facility] Laboratory [address] [place] [address] Dr. Hari Shafer PROTEINNegativeNormalNEGATIVE/ TRACEThe [facility] Comment on above:Performed By: #### UAMIC #### [facility] Laboratory [address] [place] [address] Dr. Hari Claytongen Qn (U)0.2 {Janice'U}/dLNormal0.2 - 1.0The [facility] RehabilitationComment on above:Performed By: #### UAMIC #### [facility] Laboratory [address] [place] [address] Dr. Hari PalmerWBC2-5AbnormalNONE SEENThe [facility] RehabilitationComment on above: Performed By: #### UAMIC #### [facility] Laboratory [address] [place] [address] Dr. Hari Britt ACID SERUMon 02-98-1285Dkbzg [Mass/Vol]4.9 mg/dLNormal 2.5-6.2The [facility] RehabilitationComment on above:Performed By: #### UAMIC #### [facility] Laboratory [address] [place] [address] Dr. Hari Hadley T PROTEIN CREAT RATIOon 81-68-6945Tinuban (U) [Mass/Vol] 22.2 mg/dLCritically high<=12.0The [facility] RehabilitationComment on above:Performed By: #### MG, URIC, RENAL #### [facility] Laboratory [address] [place] [address] Dr. Hari Prince PROT CREAT RAT0.47NormalThe [facility] RehabilitationComment on above: Performed By: #### MG, URIC, RENAL #### [facility] Laboratory [address] [place] [address] Dr. Hari Hadley CREAT46.89 mg/uSNndtpk71.00-300.00The [facility] Comment on above:Performed By: #### MG, URIC, RENAL #### [facility] Laboratory [address] [place] [address] Dr. Hari PalmerVITAMIN D 25 OHon 27-60-1820KDY D 25-OH40.5 ng/mLNormalThe Lala HospitalComment on above:Performed By: #### MG, URIC, RENAL #### [facility] Laboratory [address] [place], [place] [address] Dr. Hari SAUCEDO [facility] CenterCommunson healthcare [facility] on above: Result Comment: <20 ng/mL Vit D deficient 20 - <30 ng/mL Vit D insufficient 30 - 100 ng/mL Vit D sufficient >100 ng/mL Potential ToxicityPerformed By: #### MG, URIC, RENAL #### [facility] Laboratory [address] [place], [place] [address] Dr. Hari Bean 16-01-2431JONRZikgwx Visit (NEPHMN) MANDEEP PURI ([id number]) 1975 F Date Time Provider Department 03/30/21 9:20 AM PERRI BARRETT NEPHMN During your visit today, we recorded the following information about you: Temperature Pulse Blood pressure Weight 98.2 degrees 75/minute 122/77 93 kg Height 1.549 m Perri Barrett MD 03/30/2021 10:25 AM Signed Mrs. 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 (more content not included)...NormalCity HospitalUrinalysison 16-89-7895Wjtuczooc, UrineNegativeNormalNegativeCity Hospital Comment on above:Performed By: #### UA #### [facility] [address] [address] Iwsidlu (U)ClearNormalClearCity HospitalComment on above:Performed By: #### UA #### [address] [phone] (U)ColorlessCritically abnormalYellowCity HospitalComment on above:Performed By: #### UA #### [address] [phone] COMMENTNormalCHolzer HospitalComment on above: Result Comment: Microscopic not warrantedPerformed By: #### UA #### [address] [place] [phone] Ql (U)TraceCritically abnormalNegativeCity HospitalCommunson healthcare grayling hospital on above:Performed By: #### UA #### [address] [phone]/Blood,UrNegativeNormalNegativeCity Hospital Comment on above:Performed By: #### UA #### [facility] [address] [phone] Ql (U)NegativeNormalNegLakeHealth TriPoint Medical Center Comment on above:Performed By: #### UA #### [facility] [address] [phone]nwjmkCadxgazdd Clinic ClevelandComment on above:Performed By: #### UA #### [facility] [employer] [address] [address] Swonehv Ql (U)NegativeNormalNegativeCity Hospital Comment on above:Performed By: #### UA #### [address] [phone] pH (U)6.5 [pH]Normal5.0-8.0[facility] on above:Performed By: #### UA #### [address] [address] Fywxlix, UrineNegativeNormalNegativeCity Hospital Comment on above:Performed By: #### UA #### [address] [address] Jqvrjuye [place], Ur1.593Bxwvxz5.005-1.030[facility] Comment on above:Performed By: #### UA #### [address] [address] Bcsvt Codi CommentSEE COMMENTNormalCThe Jewish Hospital on above:Result Comment: N/APerformed By: #### UA #### [address] [id number] [phone] (U) [Mass/Vol]NegativeNormalNegativeMercy Health St. [facility] Hospital on above:Performed By: #### UA #### [address] [id number] [phone] Summary.on 07-43-5846Fxbiba Summary.CODING DATE: 04/21/2020 FINAL [facility] STATUS: Home (Routine DC) PAYOR: Medical [place] ADMIT DX: REASON FOR VISIT DX: Z20.828 [...] Teresa Pierce CphT Date Saved: 04/21/2020 05:17 pmNUniversity Hospitals Beachwood Medical CenterPhysician Order on 32-89-4970Ppihtchcb [id number]#1.00CD:127 [facility] HospitalALTon 74-04-0898CYK [Catalytic activity/Vol]14 U/LNormal7 - 45JFK Johnson Rehabilitation InstituteComment on above:Result Comment: Patients treated with Sulfasalazine may generate falsely decreased results for ALT.Performed By: #### ALT #### [facility] [address] [place], [place] [address]XCQlr 01-39-1667FYI [Catalytic activity/Vol]16 U/LNormal9 - 39J[facility] Johnson Rehabilitation InstituteComment on above:Performed By: #### AST #### [facility] [address] [place], [place] [address]IVSFKZUCHNnm 67-49-4676Dkcpckmogb [Mass/Vol]2.83 mg/dLHigh 0.50 - 1.05UH Community Medical CenterComment on above:Performed By: #### CREAT #### [facility] [address] [place], [place] [address]Kdiztsfdes [Mass/Vol]18 mL/min/1.27f7Rvbyzbbx>60UH Community Medical CenterComment on above:Performed By: #### CREAT #### [facility] [address] [place], [place] [address]Zgqugtaelj [Mass/Vol]22 mL/min/1.06r7Cjpdwrbk>60UH Community Medical CenterComment on above:Result Comment: CALCULATIONS OF ESTIMATED GFR ARE PERFORMED USING THE MDRD STUDY EQUATION FOR THE IDMS-TRACEABLE CREATININE METHODS. CLIN CHEM 2007;53:766-72Performed By: #### CREAT #### [facility] [address] [place], [place] [address]PFBJ ACIDon 46-25-6879Hjavt [Mass/Vol]5.2 mg/dLNormal2.3 - 6.7JFK Johnson Rehabilitation InstituteComment on above:Result Comment: Venipuncture immediately after or during the administration of Metamizole may lead to falsely low results. Testing should be performed immediately prior to Metamizole dosing.Performed By: #### URIC #### [facility] [address] [place], [place] [address]OPCJ ACIDon 66-56-1478Azpka [Mass/Vol]8.2 mg/dLHigh2.3 - 6.7 [facility] Johnson Rehabilitation InstituteComment on above:Result Comment: Venipuncture immediately after or during the administration of Metamizole may lead to falsely low results. Testing should be performed immediately prior to Metamizole dosing.Performed By: #### URIC #### [facility] [address] [place], [place] [address]Ttwr,Urineon 82-79-9129Ydno,UrineSpecimen Description .CLEAN CATCH URINE Special Requests NOT REPORTED Culture ESCHERICHIA COLI >[id number] CFU/ML Report Status FINAL 08/04/2019 SUSCEPTIBILITY Organism [...] <=1 SUSCEPTIBLE Trimethoprim/Sulfa <=20 SUSCEPTIBLE Piperacillin/Tazobactam <=4 SUSCEPTIBLENormalMercy Bridgeport HospitalComment on above:Performed By: #### DIME, LIP, CMPX, TROPI, BNP, CDP, PT #### [facility] [address] [place] [address] Agency Sales Representative: Sami Dominguez MDBrain Natri. Peptideon 57-64-3420Ynltxcpbqao peptide B (Bld) [Mass/Vol]152 pg/mLNormal<300[facility] on above:Result Comment: Pro-BNP results cannot be compared to BNP results. Performed By: #### DIME, LIP, CMPX, TROPI, BNP, CDP, PT #### [facility] [address] [place] [address] Agency Sales Representative: Sami Dominguez MDNatriuretic peptide B (Bld) [Mass/Vol]Pro-BNP Reference Range:[facility] on above:Result Comment: Rule Out: <300 Parra Zone: Age <50 300-450 Age 50-75 300-900 Age >75 300-1800 Usually represents mild to moderate HF but other cardiopulmonary causes cannot be ruled out. Rule In: Age <50 >450 Age 50-75 >900 Age >75 >1800Performed By: #### DIME, LIP, CMPX, TROPI, BNP, CDP, PT #### [facility] [address] [place] [address] Agency Sales Representative: Sami Dominguez MDBrain Natriuretic Peptideon 80-60-2173Ecoopiitwib peptide B (Bld) [Mass/Vol]152 pg/mL<[address] [place] [address], KYCommunson healthcare grayling hospital on above: Pro-BNP results cannot be compared to BNP results.Natriuretic peptide B (Bld) [Mass/Vol]Pro-BNP Reference Range:[facility], WVCommunson healthcare grayling hospital on above: Rule Out: <300 Parra Zone: Age <50 300-450 Age 50-75 300-900 Age >75 300-1800 Usually represents mild to moderate HF but other cardiopulmonary causes cannot be ruled out. Rule In: Age <50 >450 Age 50-75 >900 Age >75 >1800 CBC Auto Differentialon 91-19-2528Pcmerrqdu (Bld) [#/Vol]0.00 10*3/[facility], KYBasophils/100 WBC (Bld)0 %0 - 2 %[facility], KYDifferential TypeNOT REPORTEDTriHealth [facility], KYEosinophils (Bld) [#/Vol]0.08 10*3/[facility], KYEosinophils/100 WBC (Bld)1 %1 - 4 %[place], KYErythrocyte distribution width (RBC) [Ratio]13.2 %11.8 - 14.4 %[place] Hematocrit (Bld) [Volume fraction]33.7 %Low36.3 - 47.1 %[place], [place] Hemoglobin (Bld) [Mass/Vol]10.7 g/dLLow11.9 - 15.1 g/dLNew [place], [place] Immature granulocytes (Bld) [#/Vol]0 %0[place], KYImmature granulocytes (Bld) [#/Vol]0.00 10*3/uLNew [place], KYInterpretation and review of laboratory resultsAbnormalNew [place], KYLymphocytes (Bld) [#/Vol]0.90 10*3/uLLowNew [place], KYLymphocytes/100 WBC (Bld)12 %Low24 - 43 %[place], KYMCH (RBC) [Entitic mass]30.2 pg25.2 - 33.5 pgNew [place], [place] MCHC (RBC) [Mass/Vol]31.8 g/dL28.4 - 34.8 g/dLNew [place], KYMCV (RBC) [Entitic vol]95.2 fL82.6 - 102.9 fLNew [place]stown, KYMonocytes (Bld) [#/Vol] 0.00 10*3/uLLowTriHealth [facility], WVMonocytes/100 WBC (Bld)0 %Low3 - 12 %[place], KYMorphology Geovany (Bld) [Interp]NormalNew [place], KYPlatelet mean volume (Bld) [Entitic vol]8.6 fL8.1 - 13.5 fLNew [place]stown, KYPlatelets (Bld) [#/Vol]NOT REPORTEDNew [place], KYPlatelets (Bld) [#/Vol]335 10*3/uL [place], KYRBC (Bld) [#/Vol]3.54 10*6/uLLow3.95 - 5.11 m/[place], KYRB morphology finding Nom (Bld)NOT REPORTEDNew [place], [place] Segmented neutrophils/100 WBC (Bld)87 %High36 - 65 %[place], KYSegs Absolute6.52[place], KYWBC (Bld) [#/Vol]7.5 10*3/uLNew [place], [place] WBC (Bld) [#/Vol]0.0 10*3/uL0.0 per 100 WBCTriHealth [facility], [facility] MorphologyNOT REPORTEDNew [place], KYCB with Diffon [id number]. Basophil0.00 k/uL Normal0.0-0.2[facility] HospitalComment on above:Performed By: #### DIME, LIP, CMPX, TROPI, BNP, CDP, PT #### [address] [place] [address] Agency Sales Representative: Paul Muniz.Imm.Granulocyte0.00 k/uLNormal0.00-0.30[facility] HospitalComment on above:Performed By: #### DIME, LIP, CMPX, TROPI, BNP, CDP, PT #### [address] [place] [address] Agency Sales Representative: Paul Muniz.Neutrophil (Seg)6.52 k/uLNormal1.50-8.10T[facility]carawas HospitalComment on above:Performed By: #### DIME, LIP, CMPX, TROPI, BNP, CDP, PT #### [facility] [address] [place], [facility]83 Agency Sales Representative: Jalen Munizsophils/100 WBC (Bld)0 %Normal0-2[facility] HospitalComment on above:Performed By: #### DIME, LIP, CMPX, TROPI, BNP, CDP, PT #### [address] Castillo, [facility]83 Agency Sales Representative: Sami Alberto, MDEosinophils (Bld) [#/Vol]0.08 10*3/uLNormal 0.00-0.44T[facility]carawas HospitalCommunson healthcare gray[facility] on above:Performed By: #### DIME, LIP, CMPX, TROPI, BNP, CDP, PT #### [address] [place], [place] [address] Agency Sales Representative: NARENDRA Munizosinophils/100 WBC (Bld)1 %Normal1-4T[facility]carawas HospitalComment on above:Performed By: #### DIME, LIP, CMPX, TROPI, BNP, CDP, PT #### [address] [place] [address] Agency Sales Representative: Sami Dominguez MDImmature granulocytes (Bld) [#/Vol]0 %Normal0 [facility] on above:Performed By: #### DIME, LIP, CMPX, TROPI, BNP, CDP, PT #### [address] [place], [place] [address] Agency Sales Representative: Racheal Munizmphocytes (Bld) [#/Vol]0.90 10*3/uLLow1.10-3.70 [facility] on above:Performed By: #### DIME, LIP, CMPX, TROPI, BNP, CDP, PT #### [address] [place], [place] [address] Agency Sales Representative: Racheal Munizmphocytes/100 WBC (Bld)12 %Bcq89-74YsvwaTuscarawas HospitalComment on above:Performed By: #### DIME, LIP, CMPX, TROPI, BNP, CDP, PT #### [address] [place], [place] [address] Agency Sales Representative: MARGARET Munizonocytes (Bld) [#/Vol]0.00 10*3/uLLow0.10-1.20 [facility] HospitalComment on above:Performed By: #### DIME, LIP, CMPX, TROPI, BNP, CDP, PT #### [address] [place], [place] [address] Agency Sales Representative: MARGARET Munizonocytes/100 WBC (Bld)0 %Low3-12[facility] HospitalComment on above:Performed By: #### DIME, LIP, CMPX, TROPI, BNP, CDP, PT #### [address] Castillo, [facility]83 Agency Sales Representative: MARGARET Munizorphology Geovany (Bld) [Interp]NormalNormalTuscarawas HospitalComment on above:Performed By: #### DIME, LIP, CMPX, TROPI, BNP, CDP, PT #### [address] [place], [place] [address] Agency Sales Representative: Sami Dominguez MDNeutrophil (Seg)87 %Obtk53-17Qivpu Tiffin HospitalComment on above:Performed By: #### DIME, LIP, CMPX, TROPI, BNP, CDP, PT #### [address] Castillo, [facility]83 Agency Sales Representative: Sami Dominguez MDErythrocyte distribution width (RBC) [Ratio]13.2 %Nixxjq76.8-14.4[facility] HospitalComment on above:Performed By: #### DIME, LIP, CMPX, TROPI, BNP, CDP, PT #### [address] [place], [facility]83 Agency Sales Representative: Sami Dominguez MDHematocrit (Bld) [Volume fraction]33.7 %Low 36.3-47.1[facility] HospitalComment on above:Performed By: #### DIME, LIP, CMPX, TROPI, BNP, CDP, PT #### [address] [place] [id number] Agency Sales Representative: Sami Dominguez MDHemoglobin (Bld) [Mass/Vol]10.7 g/dLLow11.9-15.1 [facility] HospitalComment on above:Performed By: #### DIME, LIP, CMPX, TROPI, BNP, CDP, PT #### [address] [place], [facility]83 Agency Sales Representative: SHIRLEY Muniz (RBC) [Entitic mass]30.2 feMdohtb33.2-33.5 [facility] HospitalComment on above:Performed By: #### DIME, LIP, CMPX, TROPI, BNP, CDP, PT #### [address] [place], [facility]83 Agency Sales Representative: SHIRLEY MunizC (RBC) [Mass/Vol]31.8 g/xNFovspt12.4-34.8 [facility] HospitalComment on above:Performed By: #### DIME, LIP, CMPX, TROPI, BNP, CDP, PT #### [address] [place], [facility]83 Agency Sales Representative: TOBIAS Muniz (RBC) [Entitic vol]95.2 jFJstsry40.6-102.9 [facility] HospitalComment on above:Performed By: #### DIME, LIP, CMPX, TROPI, BNP, CDP, PT #### [address] [place], [facility]83 Agency Sales Representative: Sami Dominguez MDNRBC Automated0.0 per 100 WBCNormal0.0T[facility]carawas HospitalComment on above:Performed By: #### DIME, LIP, CMPX, TROPI, BNP, CDP, PT #### [address] [place] [address] Agency Sales Representative: Elisa Muniztelet mean volume (Bld) [Entitic vol]8.6 fL Normal8.1-13.5[facility] HospitalComment on above:Performed By: #### DIME, LIP, CMPX, TROPI, BNP, CDP, PT #### [address] [place], [place] [address] Agency Sales Representative: Prem Muniz ([facility]) [#/Vol]335 10*3/yIEghoxa522-361 [facility] HospitalComment on above:Performed By: #### DIME, LIP, CMPX, TROPI, BNP, CDP, PT #### [address] [place], [place] [address] Agency Sales Representative: ARNIE Muniz ([facility]) [#/Vol]3.54 10*6/uLLow3.95-5.11T[facility]aw[facility] HospitalComment on above:Performed By: #### DIME, LIP, CMPX, TROPI, BNP, CDP, PT #### [address] [place], [place] [address] Agency Sales Representative: CAMILA Muniz ([facility]) [#/Vol]7.5 10*3/uLNormal3.5-11.3MSelect Medical Specialty Hospital [facility] HospitalComment on above:Performed By: #### DIME, LIP, CMPX, TROPI, BNP, CDP, PT #### [address] [place], [place] [address] Agency Sales Representative: Ruddy Muniz PerformedNOT REPORTEDNormalVan Wert County Hospital HospitalComment on above:Performed By: #### DIME, LIP, CMPX, TROPI, BNP, CDP, PT #### [address] [place] [address] Agency Sales Representative: Prem Muniz ([facility]) [#/Vol]NOT REPORTEDNormalVan Wert County Hospital HospitalComment on above:Performed By: #### DIME, LIP, CMPX, TROPI, BNP, CDP, PT #### [facility] [address] [place], [place] [id number] Agency Sales Representative: ARNIE Muniz morphology finding Nom (Bld)NOT REPORTED NormalTuscarawas HospitalComment on above:Performed By: #### DIME, LIP, CMPX, TROPI, BNP, CDP, PT #### [facility] [address] [place] [address] Agency Sales Representative: CAMILA Muniz MorphologyNOT REPORTEDNormalTuscarawas HospitalComment on above:Performed By: #### DIME, LIP, CMPX, TROPI, BNP, CDP, PT #### [facility] [address] [place] [address] Agency Sales Representative: Sami Dominguez MDCTA CHEST ABDOMEN PELVIS W [...] Signed by: Yunier Yang MD 08/02/19 Final resultNormalMerMiddlesex Hospital pepe Incoming Radiant Results From [employer] - 08/02/2019 1:21 PM EDT EXAMINATION: CTA [...] recommended. Reference: J Am Danika Radiol 2013;10:675-681 [facility] CantonAMINATION: CTA OF THE CHEST, ABDOMEN AND PELVIS [...] in course and caliber without aneurysmaldilatation or dissection.[facility], [place]VIN evidence for aneurysmal dilatation or dissection of the aorta or its branches. Findings most compatible with polycystic kidney disease. Subtle inflammation adjacent to the descending colon is suggestive of subtle colitis. No perforation or abscess formation. No free intraperitoneal air or fluid.4.1 cm benign appearing ovarian cyst No follow-up imaging is recommended. Reference: J Am Danika Radiol 2013;10:675-681[facility] HospitalSumanth Metabolic Pr/rfx MGon 08-02-2019(cont.) [facility] HospitalComment on above:Result Comment: Average GFR for 40- 49 years old: 99 mL/min/1.73sq m Chronic Kidney Disease: <60 mL/min/1.73sq m Kidney failure: <15 mL/min/1.73sq m eGFR calculated using average adult body mass. Additional eGFR calculator available at: http://www.[employer]/multiple_crcl_2012.htmPerformed By: #### DIME, LIP, CMPX, TROPI, BNP, CDP, PT #### [facility] [address] [place] [address] [place] [address] Agency Sales Representative: Sami Dominguez MDAlbumin [Mass/Vol]4.4 g/dLNormal3.5-5.2MercGriffin HospitalComment on above:Performed By: #### DIME, LIP, CMPX, TROPI, BNP, CDP, PT #### [facility] [address] [place] [address] Agency Sales Representative: Sami Dominguez MDAlbumin/Globulin [Mass ratio]1.0 {ratio}Normal 1.0-2.5T[facility]carawas HospitalComment on above:Performed By: #### DIME, LIP, CMPX, TROPI, BNP, CDP, PT #### [address] [place] [address] Agency Sales Representative: Macario Muniz Phos98 U/BDkbpkb73-847TeisjTuscarawas HospitalComment on above:Performed By: #### DIME, LIP, CMPX, TROPI, BNP, CDP, PT #### [address] [place], [facility]83 Agency Sales Representative: RAMIREZ Muniz [Catalytic activity/Vol]16 U/LNormal5-33T[facility]awas HospitalComment on above:Performed By: #### DIME, LIP, CMPX, TROPI, BNP, CDP, PT #### [address] [place] [address] Agency Sales Representative: Dianna Muniz gap [Moles/Vol]18 mmol/LHigh9-17T[facility]awas HospitalComment on above:Performed By: #### DIME, LIP, CMPX, TROPI, BNP, CDP, PT #### [address] [place], [place] [address] Agency Sales Representative: BLANCA Muniz [Catalytic activity/Vol]18 U/LNormal<32T[facility]awas HospitalComment on above:Performed By: #### DIME, LIP, CMPX, TROPI, BNP, CDP, PT #### [address] [place] [address] Agency Sales Representative: Sami Dominguez MDBilirubin Ql (U)0.31 mg/dLNormal0.3-1.2MThe MetroHealth SystemComment on above:Performed By: #### DIME, LIP, CMPX, TROPI, BNP, CDP, PT #### [address] [place] [address] Agency Sales Representative: Sami Dominguez MDBUN/CRE Lizhr17Cwngrs6-26Szpba [facility] Comment on above:Performed By: #### DIME, LIP, CMPX, TROPI, BNP, CDP, PT #### [facility] [address] [place], [place] [phone] Agency Sales Representative: ABRAHAM Munizalcium [Mass/Vol]9.7 mg/dLNormal8.6-10.4T[facility]awas HospitalComment on above:Performed By: #### DIME, LIP, CMPX, TROPI, BNP, CDP, PT #### [address] [place] [address] Agency Sales Representative: ABRAHAM Munizhloride [Moles/Vol]95 mmol/PPts48-457TvzgzTuscarawas HospitalComment on above:Performed By: #### DIME, LIP, CMPX, TROPI, BNP, CDP, PT #### [address] [place], [facility]83 Agency Sales Representative: ABRAHAM MunizO2 [Moles/Vol]18 mmol/TNrh19-38Onrwp Tiffin HospitalComment on above:Performed By: #### DIME, LIP, CMPX, TROPI, BNP, CDP, PT #### [address] [place], [place] [id number] Agency Sales Representative: ABRAHAM Munizreatinine [Mass/Vol]3.07 mg/dLHigh0.50-0.90T[facility]carawas HospitalComment on above:Performed By: #### DIME, LIP, CMPX, TROPI, BNP, CDP, PT #### [address] [place], [place] [id number] Agency Sales Representative: LUISA Muniz, Amer20 mL/minLow>60[facility] HospitalComment on above:Performed By: #### DIME, LIP, CMPX, TROPI, BNP, CDP, PT #### [address] [place], [place] [id number] Agency Sales Representative: Sami Dominguez MDGFR,non Amer17 mL/minLow>60[facility] HospitalComment on above:Performed By: #### DIME, LIP, CMPX, TROPI, BNP, CDP, PT #### [address] [place] [address] Agency Sales Representative: Sami Dominguez MDGlucose [Mass/Vol]89 mg/vCCvojth35-18Wmjvr Tiffin HospitalComment on above:Performed By: #### DIME, LIP, CMPX, TROPI, BNP, CDP, PT #### [address] [place] [address] Agency Sales Representative: Sami Dominguez MDPotassium [Moles/Vol]3.9 mmol/LNormal3.7-5.3Mpremier health atrium medical centery Essex HospitalComment on above:Performed By: #### DIME, LIP, CMPX, TROPI, BNP, CDP, PT #### [address] [place] [address] Agency Sales Representative: Sami Dominguez MDProtein [Mass/Vol]8.8 g/dLHigh6.4-8.3MSelect Medical Specialty Hospital [facility] HospitalComment on above:Performed By: #### DIME, LIP, CMPX, TROPI, BNP, CDP, PT #### [address] [place] [address] Agency Sales Representative: Sami Dominguez MDSodium [Moles/Vol]131 mmol/FBcn053-836Gzwqu Tiffin HospitalComment on above:Performed By: #### DIME, LIP, CMPX, TROPI, BNP, CDP, PT #### [address] [place] [address] Agency Sales Representative: RAMESH Muniztaging:NormalVan Wert County Hospital HospitalComment on above:Result Comment: Stage 1: Some kidney damage normal GFR Stage 2: Mild kidney damage GFR 60-89 Stage 3: Moderate kidney damage GFR 30-59 Stage 4: Severe kidney damage GFR 15-29 Stage 5: Severe kidney damage GFR <15 ESRD - chronic treatment by dialysis or transplantPerformed By: #### DIME, LIP, CMPX, TROPI, BNP, CDP, PT #### [facility] [address] [place] [address] Agency Sales Representative: Sami Dominguez MDUrea nitrogen [Mass/Vol]39 mg/dLHigh6-20T[facility]carawas HospitalComment on above:Performed By: #### DIME, LIP, CMPX, TROPI, BNP, CDP, PT #### [facility] [address] [place] [address] Agency Sales Representative: Sami Dominguez [facility] – STROUDomprehensive Metabolic Panel w/ Reflex to MGon [id number] [Mass/Vol]4.4 g/dL3.5 - 5.2 g/dLTriHealth [facility], [place] Albumin/Globulin [Mass ratio]1.0 {ratio}[facility], KYALP [Catalytic activity/Vol]98 U/L35 - 104 U/LMDetwiler Memorial Hospital [place], KYALT [Catalytic activity/Vol] 16 U/L5 - 33 U/[facility] [place], KYAnion gap [Moles/Vol]18 mmol/LHigh9 - 17 mmol/LMDetwiler Memorial Hospital [place], KYAST [Catalytic activity/Vol]18 U/L<32[facility], KYBilirubin Ql (U)0.31 mg/dL0.3 - 1.2 mg/dLCleveland Clinic [facility] [place], KYBun/Cre Ratio13 [facility], KYCalcium [Mass/Vol]9.7 mg/dL8.6 - 10.4 mg/dLTriHealth [facility], KYChloride [Moles/Vol]95 mmol/LLow98 - 107 mmol/LMTrinity Health System East Campus- [place], KYCO2 [Moles/Vol]18 mmol/LLow20 - 31 mmol/LMDetwiler Memorial Hospital [place], KYCreatinine [Mass/Vol] 3.07 mg/dLHigh0.5 - 0.9 mg/dLCleveland Clinic [facility] [place], KYGFR Bukdnsoc92 mL/min Low>60[facility], KYGFR Non- Lsjmdkwp43 mL/minLow>60[facility], KYGlucose [Mass/Vol]89 mg/dL70 - 99 mg/dLTriHealth [facility], KYInterpretation and review of laboratory resultsAbnoGalion Community Hospital, KYPotassium [Moles/Vol]3.9 mmol/L3.7 - 5.3 mmol/LMThe [facility], KYProtein [Mass/Vol]8.8 g/dLHigh6.4 - 8.3 g/dLTriHealth [facility], KYSodium [Moles/Vol]131 mmol/IMju910 - 144 mmol/LMThe [facility] of [facility], KYUrea nitrogen [Mass/Vol]39 mg/dLHigh6 - 20 mg/dL [facility], KYD-Dimer Teston [id number]-Dimer Test1.15 mg/L FEUHigh 0.19-0.50T[facility]carawas HospitalComment on above:Result Comment: Elevated levels of [...] CMPX, TROPI, BNP, CDP, PT #### [facility] [address] [place] [address] [place] [address] Agency Sales Representative: Sami Dominguez, MDD-Dimer, Quantitativeon [id number]-Dimer, Quant 1.15[facility], KYComment on above: Elevated levels of D [...] of 98%). Interpretation and review of laboratory resultsAbnoGalion Community Hospital, [place] Lactate, Sepsison [id number] Acid, Sepsis3.6 mmol/LHigh0.5-1.9T[facility]carawas HospitalComment on above:Performed By: #### LACDS #### [facility] [address] [place], [place] [id number] Agency Sales Representative: Omayra Muniz,Sep WbldNOT REPORTEDNormal0.5-1.9 [facility] HospitalComment on above:Performed By: #### LACDS #### [facility] [address] [place] [address] Agency Sales Representative: Sami Dominguez MDInterpretation and review of laboratory results AbnormalTriHealth [facility], KYLactic Acid, Sepsis3.6 mmol/LHigh0.5 - 1.9 mmol/L [facility], KYLactic Acid, Sepsis, Whole BloodNOT REPORTED0.5 - 1.9 mmol/L [facility], KYLactic Acidon [id number] [Moles/Vol]1.0 mmol/LNormal 0.5-2.2MSelect Medical Specialty Hospital - [facility] North HospitalComment on above:Performed By: #### DIME, LIP, CMPX, TROPI, BNP, CDP, PT #### [facility] [address] [place], [place] [phone] Agency Sales Representative: Janet Munizate [Moles/Vol]NOT REPORTEDNormal0.7-2.1MSelect Medical Specialty Hospital - [facility] HospitalComment on above:Performed By: #### DIME, LIP, CMPX, TROPI, BNP, CDP, PT #### [facility] [address] [place], [place] [id number] Agency Sales Representative: Omayra Muniz, Plasmaon [id number] [Moles/Vol]1 mmol/L0.5 - 2.2 mmol/LMThe [facility] of [facility], KYLactic Acid, Whole Blood NOT REPORTED0.7 - 2.1 mmol/LMThe [facility] of [facility], TORSTENLipaseon [id number] [Catalytic activity/Vol]38 U/RMbdzor21-99UksxgTuscarawas HospitalComment on above: Performed By: #### DIME, LIP, CMPX, TROPI, BNP, CDP, PT #### [facility] [address] [place] [address] Agency Sales Representative: Sami Dominguez MDLipase [Catalytic activity/Vol]38 U/L13 - 60 U/L [facility], TORSTENMetabolic Panelon [id number]/1.73 sq M predicted among non-blacks MDRD (S/P/Bld) [Vol rate/Area][facility] TORSTENCommunson healthcare grayling hospital on above: Stage 1: Some kidney damage [...] body mass. Additional eGFR calculator available at: http://www.[employer]/multiple_crcl_2012.htm Microscopic Urinalysison [id number], UANOT REPORTEDNoneMeUniversity Hospitals Portage [facility] Center- [place], KYBacteria, UA1+AbnormalNoneMeUniversity Hospitals Portage [facility] Center- [place], KYCasts UANOT REPORTED/LPF [facility] [place], KYCrystals UANOT REPORTEDNone /HPFSumma Health [facility]- [place], [place] Epithelial Cells UA2 TO 5[facility] [place], KYInterpretation and review of laboratory resultsAbnormalSumma Health [facility]- [place], KYMucus, UANOT REPORTEDNoneMeblanchard valley health [facility] Health- [place], KYOther Observations UANOT REPORTEDNOT REQ.[facility], KYRBC (U) [#/Vol]NoneSumma Health [facility]- [place], KYRenal Epithelial, UrineNOT REPORTED0 /HPF [facility]- [place], KYTrichomonas, UANOT REPORTEDNoneMeSt. [facility], KYWBC, UA50 TO 100[facility], KYYeast, UANOT REPORTEDNonRiverside Methodist Hospital, [place]-[facility], KYPTon [id number] Coag (PPP) [Relative time]1.0 {INR}Normal 0.9-1.2Mpremier health atrium medical centery Bridgeport HospitalComment on above:Performed By: #### DIME, LIP, CMPX, TROPI, BNP, CDP, PT #### [facility] [address] [place] [address] Agency Sales Representative: BEVERLEY Muniz Coag (PPP) [Time]10.0 sNormal9.7-12.2MThe MetroHealth SystemComment on above:Performed By: #### DIME, LIP, CMPX, TROPI, BNP, CDP, PT #### [facility] [address] [place] [address] Agency Sales Representative: Vernon MunizINRon [id number] Coag (PPP) [Relative time]1.0 {INR}[facility], KYPT Coag (PPP) [Time]10 sMThe [facility] of [facility], [place] Troponinon [id number] I.cardiac [Mass/Vol]ng/mLNormal<0.03Tuscarawas HospitalComment on above:Result Comment: Troponin T results cannot be compared to Troponin-I results.Performed By: #### DIME, LIP, CMPX, TROPI, BNP, CDP, PT #### [facility] [address] [place] [address] Agency Sales Representative: Raul Muniz I.cardiac [Mass/Vol]NormalTuscarawas HospitalCommunson healthcare grayling hospital on above:Result Comment: Reference Range: <0.03 Within [...] CMPX, TROPI, BNP, CDP, PT #### [facility] [address] [place] [address] Agency Sales Representative: Raul Muniz I.cardiac [Mass/Vol]NOT REPORTEDNormal 0-14Premier Health Atrium Medical Centerment on above:Performed By: #### DIME, LIP, CMPX, TROPI, BNP, CDP, PT #### [facility] [address] [place] [address] Agency Sales Representative: Raul Muniz I.cardiac [Mass/Vol][place] Comment on above:Reference Range: <0.03 Within reference range. 0.03-0.09 Possible myocardial damage. Repeat at appropriate intervals to rule out chronic elevation. >= 0.10 Indicative of myocardial damage. Patients with high levels of Biotin oral intake (i.e >5mg/day) may have falsely decreased Troponin T levels. Samples collected within 8 hours of biotin intake may require additional information for diagnosis. Troponin T.cardiac [Mass/Vol]ug/L<0.03 ng/mLNew [place], KYComment on above:Troponin T results cannot be compared to Troponin-I results.Troponin, High SensitivityNOT REPORTED0 - 14 ng/LMBattle Creek, KYTalisha Velasquezcardiac [Mass/Vol]ng/mLNormal<0.03Tuscarawas HospitalComment on above:Result Comment: Troponin T results cannot be compared to Troponin-I results.Performed By: #### DIME, LIP, CMPX, TROPI, BNP, CDP, PT #### [facility] [address] [place] [address] Agency Sales Representative: Raul Muniz I.cardiac [Mass/Vol]NormalTuscarawas HospitalComment on above:Result Comment: Reference Range: <0.03 [...] CMPX, TROPI, BNP, CDP, PT #### [facility] [address] [place] [address] Dr. [place]illo, [place] [phone] Agency Sales Representative: Raul Muniz I.cardiac [Mass/Vol]NOT REPORTEDNormal 0-14T[facility]carawas HospitalComment on above:Performed By: #### DIME, LIP, CMPX, TROPI, BNP, CDP, PT #### [address] [place], [facility] Agency Sales Representative: Raul Muniz I.cardiac [Mass/Vol][place] Comment on above:Reference Range: <0.03 Within reference range. 0.03-0.09 Possible myocardial damage. Repeat at appropriate intervals to rule out chronic elevation. >= 0.10 Indicative of myocardial damage. Patients with high levels of Biotin oral intake (i.e >5mg/day) may have falsely decreased Troponin T levels. Samples collected within 8 hours of biotin intake may require additional information for diagnosis. Troponin T.cardiac [Mass/Vol]ug/L<0.03 ng/mLNew [place], KYComment on above:Troponin T results cannot be compared to Troponin-I results.Troponin, High SensitivityNOT REPORTED0 - 14 ng/LMBattle Creek, KYUA w/Reflex Cultureon [id number] Acid,UrNegativeNormalNEGVan Wert County Hospital HospitalComment on above:Performed By: #### DIME, LIP, CMPX, TROPI, BNP, CDP, PT #### [address] [facility], [facility]83 Agency Sales Representative: Rolando Munizirubin, SemiQt,UrNegativeNormalNEGVan Wert County Hospital HospitalComment on above:Performed By: #### DIME, LIP, CMPX, TROPI, BNP, CDP, PT #### [facility] [address] Castillo, [facility]83 Agency Sales Representative: Sami Dominguez [facility] – STROUDolor (U)YELLOWNormalYBellevue Hospital Comment on above:Performed By: #### DIME, LIP, CMPX, TROPI, BNP, CDP, PT #### [facility] [address] Castillo, [place] [address] Agency Sales Representative: Sami Dominguez MDGlucose Ql (U)NegativeNormalNEGTuscarawas HospitalComment on above:Performed By: #### DIME, LIP, CMPX, TROPI, BNP, CDP, PT #### [facility] [address] [place] [address] Dr. Castillo, [facility]83 Agency Sales Representative: Sami Dominguez MDHemoglobin, Ur1+AbnormalMercy Health Defiance Hospital Comment on above:Performed By: #### DIME, LIP, CMPX, TROPI, BNP, CDP, PT #### [facility] [address] [place] [address] Dr. Castillo, [place] [address] Agency Sales Representative: Sami Dominguez MDLeukocyte esterase Test strip Ql (U)MODERATE AbnormalNEGTuscarawas HospitalComment on above:Performed By: #### DIME, LIP, CMPX, TROPI, BNP, CDP, PT #### [address] Castillo, [place] [address] Agency Sales Representative: Sami Dominguez MDNitrite,UrNegativeNormChildren's Hospital of Columbus Comment on above:Performed By: #### DIME, LIP, CMPX, TROPI, BNP, CDP, PT #### [facility] [address] [place] [address] Dr. Castillo, [facility]83 Agency Sales Representative: Sami Dominguez [facility] (U)6.0 [pH]Normal5.0-9.0[facility] Comment on above:Performed By: #### DIME, LIP, CMPX, TROPI, BNP, CDP, PT #### [facility] [address] [place] [address] Agency Sales Representative: BETTE Munizrotein Ql (U)TRACEAbnormChildren's Hospital of ColumbusComment on above:Performed By: #### DIME, LIP, CMPX, TROPI, BNP, CDP, PT #### [facility] [address] Castillo, [place] [phone] Agency Sales Representative: RAMESH Munizpecific gravity (U) [Rel density]1.010Normal 1.010-1.020Tuscarawas HospitalComment on above:Performed By: #### DIME, LIP, CMPX, TROPI, BNP, CDP, PT #### [facility] [address] Castillo, [place] [id number] Agency Sales Representative: NEVIN Munizcancer treatment centers of americaCLEARUniversity Hospitals Ahuja [facility] Comment on above:Performed By: #### DIME, LIP, CMPX, TROPI, BNP, CDP, PT #### [facility] [address] [place] [address] [place] [address] Agency Sales Representative: Sami Dominguez MDUrobilinogen,UrNormalNormKettering Health Greene MemorialComment on above:Performed By: #### DIME, LIP, CMPX, TROPI, BNP, CDP, PT #### [facility] [address] Castillo, [place] [phone] Agency Sales Representative: Federica MunizNOT REPORTEDMercy Health Willard Hospital Comment on above:Performed By: #### DIME, LIP, CMPX, TROPI, BNP, CDP, PT #### [facility] [address] Castillo, [place] [phone] Agency Sales Representative: Sami Dominguez MDUrinalysis Reflex to Cultureon 08-02-2019 Bilirubin UrineNegativeNEGATIVEMercy Health Perrysburg Hospital- [place], KYColor, UAYELLOWYELLOWMercy Health Perrysburg Hospital- [place], KYGlucose, UrNegativeNEGATIVEMercy Health- [place], KYInterpretation and review of laboratory resultsAbnormalMercy Health- [place], KYKetones Ql (U)Negative NEGATIVEMercy Health- [place], KYLeukocyte esterase Test strip Ql (U)MODERATEAbnormal NEGATIVEMercy Health- [place], KYNitrite, UrineNegativeNEGATIVEMercy Health- [place], [place] pH, UA6.0[facility]- [place], KYProtein (U) [Mass/Vol]TRACEAbnormalNEGATIVEMercy Health- [place], KYSpecific [place], UA1.010[facility]- [place], KYTurbidity UACLEAR CLEARMer Health- [place], KYUrinalysis CommentsNOT REPORTEDMercy Health- [place], [place] Urine Hgb1+AbnormalNEGATIVEMercy Health- [place], KYUrobilinogen, UrineNormalNormal [facility] [place], KYUrinalysis,Microon 08-02-2019-----NormalVan Wert County Hospital HospitalComment on above:Performed By: #### DIME, LIP, CMPX, TROPI, BNP, CDP, PT #### [facility] [address] [place] [address] [place] [address] Agency Sales Representative: Sami Dominguez MDBacteria LM.HPF (Urine sed) [#/Area]1+Abnormal NONETuscarawas HospitalComment on above:Performed By: #### DIME, LIP, CMPX, TROPI, BNP, CDP, PT #### [address] [place] [id number] Agency Sales Representative: Sami Dominguez MDEpithelial cells LM.HPF (Urine sed) [#/Area]2 TO 7Fzhgbo8-98OpboyTuscarawas HospitalComment on above:Performed By: #### DIME, LIP, CMPX, TROPI, BNP, CDP, PT #### [address] [place] [address] Agency Sales Representative: MILES MunizBC (U) [#/Vol]NoneNormal0-2MThe [facility]Health System Comment on above:Performed By: #### DIME, LIP, CMPX, TROPI, BNP, CDP, PT #### [address] [place] [address] Agency Sales Representative: JENNIFER Muniz (U) [#/Vol]50 TO 928Mijlqx4-0Zxlxa Essex HospitalComment on above:Performed By: #### DIME, LIP, CMPX, TROPI, BNP, CDP, PT #### [address] [place] [address] Agency Sales Representative: Sami Dominguez MDAbloomington hospital of orange countymichelle sediment LM Ql (Urine sed)NOT REPORTED NormalNONEMeClaiborne County Medical Center HospitalComment on above:Performed By: #### DIME, LIP, CMPX, TROPI, BNP, CDP, PT #### [address] [place] [address] Agency Sales Representative: ABRAHAM Munizasts LM.LPF (Urine sed) [#/Area]NOT REPORTED NormalMercy Essex HospitalComment on above:Performed By: #### DIME, LIP, CMPX, TROPI, BNP, CDP, PT #### [address] [place] [address] Agency Sales Representative: ABRAHAM Munizrystals LM Nom (Urine sed)NOT REPORTEDNormalNONE [facility] HospitalComment on above:Performed By: #### DIME, LIP, CMPX, TROPI, BNP, CDP, PT #### [address] [place] [address] Agency Sales Representative: Sami Dominguez MDEpithelial, RenalNOT WQOFLPUAQytsrp7Tfeoc Essex HospitalComment on above:Performed By: #### DIME, LIP, CMPX, TROPI, BNP, CDP, PT #### [address] [place] [address] Agency Sales Representative: Andry Munizus StrandsNOT REPORTEDNormalNONEMercy Essex HospitalComment on above:Performed By: #### DIME, LIP, CMPX, TROPI, BNP, CDP, PT #### [facility] [address] [place] [address] Agency Sales Representative: Sami Dominguez MDOther ObservationsNOT REPORTEDNormalNREQVan Wert County Hospital HospitalComment on above:Performed By: #### DIME, LIP, CMPX, TROPI, BNP, CDP, PT #### [facility] [address] [place] [address] Agency Sales Representative: Sami Dominguez MDTrichomonasNOT REPORTEDNormalNONEMeClaiborne County Medical Center HospitalComment on above:Performed By: #### DIME, LIP, CMPX, TROPI, BNP, CDP, PT #### [facility] [address] Cast[place], [place] [phone] Agency Sales Representative: Sami Dominguez MDYeast LM Ql (Urine sed)NOT REPORTEDNormalNONE [facility] HospitalComment on above:Performed By: #### DIME, LIP, CMPX, TROPI, BNP, CDP, PT #### [facility] [address] Castillo, [place] [id number] Agency Sales Representative: SARAH Muniz CHEST PORTABLEon [id number] CHEST PORTABLE EXAMINATION: ONE XRAY VIEW OF [...] Signed by: Cullen Ngo MD 08/02/19 Final resultNormalTuscarawas HospitalEXAMINATION: ONE XRAY VIEW OF THE CHEST 08/02/2019 12:59 pm COMPARISON: None. HISTORY: ORDERING SYSTEM PROVIDED HISTORY: CP TECHNOLOGIST PROVIDED HISTORY: CP FINDINGS: Heart size and pulmonary vessels are within normal limits. Lungs are clear. No focal infiltrates or significant pleural effusions are seen. There is no acute osseous abnormality. Monitor leads overlie the chest.[facility] Citizens HospitalField NationST. LOUIS CHILDREN'S HOSPITALKerrie acute cardiopulmonary process.Micello [facility] [place] Incoming Radiant Results From [employer] - 08/02/2019 1:10 PM EDT EXAMINATION: ONE [...] the chest. IMPRESSION: No acute cardiopulmonary process. LumiGrow- MD, TORSTEN Vital Signs Date TimeVital SignValuePerforming CsrxdylizTvprnpcs55-31-2996 14:23-0400Body xxbowr535.9 cmGina Risaliti GENERAL DOC Work Phone: BerGenBioSoutheast Missouri HospitalOdxszezhdf78-96-6026 14:23-0400Body mass index (BMI) [Ratio]34.77 kg/m2Gina Risaliti GENERAL DOC Work Phone: NOSoutheast Missouri HospitalVdfookftmo71-53-8275 14:23-0400Body wesbws39.46 kgGina Risaliti GENERAL DOC Work Phone: [phone] Missouri HospitalZilqvjrxpr95-72-2921 14:23-0400Diastolic blood mugnuwgm85 mm[Hg]Calista Risaliti GENERAL DOC Work Phone: NOSoutheast Missouri HospitalHjxnocionb09-82-7318 14:23-0400Heart rate83 /min Calista Risaliti GENERAL DOC Work Phone: NOSoutheast Missouri HospitalLknvvbdecs74-82-5382 14:23-6887QcZ9% (BldA) [Mass fraction]99 %Calista Risaliti GENERAL DOC Work Phone: NOSoutheast Missouri HospitalNxccapdipu38-21-8091 14:23-0400Systolic blood mm[Hg]Calista Risaliti GENERAL DOC Work Phone: [place] [address]Ypwdmztobz66-73-7843 12:33-0400Body .94 Desi Wong MD Work Phone: [facility]08-19-2025 12:33-0400 Body wkonjgczygy08.9 [degF]Perri Wong MD Work Phone: [phone] [place], [place] 6833808-19-2025 12:33-0400 Body xyuvmy22.05 kgPerri Wong MD Work Phone: [phone])[address]08-19-2025 12:33-0400 Diastolic blood jwyblaky10 mm[Hg]Perri Wong MD Work Phone: 1(658)[address]08-19-2025 12:33-0400 Heart rate79 /minPerri Wong MD Work Phone: [phone])[address]08-19-2025 12:33-0400 Respiratory rate18 /minPerri Wong MD Work Phone: [phone])[address]08-19-2025 12:33-0400 SaO2% (BldA) [Mass fraction]98 %Perri Wong MD Work Phone: [phone] [place], [place] 6833808-19-2025 12:33-0400 Systolic blood qycdppuz498 mm[Hg]Perri Wong MD Work Phone: [phone] [place], [place] 6833807-07-2025 08:08-0400 Body ayieli745.9 cmMing Alexis DO Work Phone: [phone] CampusGpdhfbqnpo32-61-4830 08:08-0400Body mass index (BMI) [Ratio]34.69 kg/u4UdoanpvMing Espinoza DO Work Phone: [phone] [place], [place] [address]Viiykoudvx08-32-3759 08:08-0400Body ygreqc12.28 kgMing Espinoza DO Work Phone: [phone] CampusPtyoxfhifj58-60-6566 08:08-0400Heart rate78 /min Ming Espinoza DO Work Phone: [phone] CampusAaechrgnmk64-76-0758 08:08-2899ErR1% (BldA) [Mass fraction]99 %Ming Espinoza DO Work Phone: [facility] CampusXngsnpyuld96-84-7028 14:24-0400Body mass index (BMI) [Ratio]34.77 kg/v1XbwzzghMing Espinoza DO Work Phone: [facility] CampusOemqoqnkwp15-41-5908 14:24-0400Body ywutut41.46 kgJekirsten Espinoza DO Work Phone: [facility] CampusTtwffyxofb54-62-0029 14:24-0400Diastolic blood lgtcbvyd49 mm[Hg]Ming Espinoza DO Work Phone: 1([phone] [place], [place] [address]Ozbpmamdbo23-74-7637 14:24-0400Heart rate78 /min Ming Espinoza DO Work Phone: [address] [place], [place] [address]Latvqvoata51-63-7440 14:24-7571QpG0% (BldA) [Mass fraction]97 %Ming Espinoza DO Work Phone: [address] [place], [place] [address]Owbdvbwejh27-46-4255 14:24-0400Systolic blood xxqselne099 mm[Hg]Ming Espinoza DO Work Phone: [phone] [place], [place] [address]Metasrlsgi20-92-6290 08:19-0500Body .9 cmMing Espinoza DO Work Phone: [phone] [place], [place] [address]Jttijhrtch60-20-8016 08:19-0500Body mass index (BMI) [Ratio]34.2 kg/x8CnkrzjbMing Espinoza DO Work Phone: [phone] CampusNqisaxztuh28-90-9626 08:19-0500Body olsrek26.1 kg Ming Espinoza DO Work Phone: [phone] [place], [place] [address]Uqpnwrfhpx27-29-2209 08:19-0500Diastolic blood wnjyitva78 mm[Hg]Ming Espinoza DO Work Phone: [phone] [address]Urcepyhejh25-77-3826 08:19-0500Heart rate88 /min Ming Espinoza DO Work Phone: [phone] [address]Efjxmcyukq37-77-0816 08:19-5721BeZ6% (BldA) [Mass fraction]98 %Ming Espinoza DO Work Phone: 1(357)[facility]-2652[facility] CampusUlmqenrefn71-38-5492 08:19-0500Systolic blood axbcnxzn226 mm[Hg]Ming Espinoza DO Work Phone: [facility] CampusGwoqaippfh59-54-6659 08:34-0400Body temperature 97.81 [degF]Lucero Hudson GENERAL DOC Work Phone: [facility] CampusMhpyzgqkcc91-82-1192 08:34-0400Diastolic blood qxkvonlp52 mm[Hg]Lucero Hudson GENERAL DOC Work Phone: [facility] CampusRhuxkvzwnr63-71-0508 08:34-0400Heart rate83 /min Lucero Hudson GENERAL DOC Work Phone: [facility] CampusSvcsgpyqlx44-11-9409 08:34-2060CwB1% (BldA) [Mass fraction]98 %Lucero Hudson GENERAL DOC Work Phone: [facility] CampusAhgucpxjeg25-73-7422 08:34-0400Systolic blood fueudpyo667 mm[Hg]Lucero Hudson GENERAL DOC Work Phone: [facility] CampusMepudfxsys59-80-8478 17:34-0400Body ebaugf715.48 cmAPRN Andreia Jerry Work Phone: [facility]06-10-2024 17:34-0400 Body mass index (BMI) [Ratio]31.8 kg/m2APRN Andreia Jerry Work Phone: [facility]06-10-2024 17:34-0400 Body ywpmkrdayua551.3 [degF]PERISHABLE FRUIT INSPECTOR Andreia Jerry Work Phone: [facility]06-10-2024 17:34-0400 Body kzhwel25.92 kgAPRN Andreia Jerry Work Phone: [facility]06-10-2024 17:34-0400 Diastolic blood bypheefy05 mm[Hg]PERISHABLE FRUIT INSPECTOR Andreia Jerry Work Phone: [facility]06-10-2024 17:34-0400 Heart rate88 /minAPRN Andreia Jerry Work Phone: [facility]06-10-2024 17:34-0400 Respiratory rate18 /minAPRN Andreia Boyceb Work Phone: [facility]06-10-2024 17:34-0400 SaO2% (BldA) [Mass fraction]96 %PERISHABLE FRUIT INSPECTORRoxy Boyceb Work Phone: [facility]06-10-2024 17:34-0400 Systolic blood gzgklnac982 mm[Hg]PERISHABLE FRUIT INSPECTOR Andreia Boyceb Work Phone: [facility]10-25-2022 17:40-0400 Body pflqil060.48 cmAbdul Toni Other [employer] Other 688631-22-5130 17:40-0400Body mass index (BMI) [Ratio] 36.69 kg/f1Dzozs Toni Other [employer] Other 10-25-2022 17:40-0400Body zjuwqqcwjgk76.4 [degF]Yaneth Toni Other [employer] Other 10-25-2022 17:40-0400Body .99 kgAbdul Toni Other [employer] Other 10-25-2022 17:40-0400Diastolic blood sqootbpq38 mm[Hg] Yaneth Toni Other [employer] Other 10-25-2022 17:40-0400Respiratory rate18 /minAbdul Toni Other [employer] Other 10-25-2022 17:40-0117GlC3% (BldA) [Mass fraction]99 % Yaneth Toni Other [employer] Other 10-25-2022 17:40-0400Systolic blood slvnkdyk011 mm[Hg] Yaneth Amaror Other [facility] [employer] Other 09-28-2022 09:45-0400Body .48 cmEstefania Vo Other [employer] Other 09-28-2022 09:45-0400Body mass index (BMI) [Ratio] 36.76 kg/p8GspqkdEstefania Vo Other [employer] Other 09-28-2022 09:45-0400Body mpjsnkhufmi05 [degF]Estefania Vo Other [employer] Other 09-28-2022 09:45-0400Body cakxsh05.17 kgEstefania Vo Other [facility] Other 09-28-2022 09:45-0400Diastolic blood cmfiygza35 mm[Hg] Estefania Vo Other [employer] Other 09-28-2022 09:45-5944MeN5% (BldA) [Mass fraction]99 % Estefania Vo Other [facility] Other 09-28-2022 09:45-0400Systolic blood myrxohir916 mm[Hg] Estefania Vo Other [employer] Other 09-15-2022 16:10-0400Diastolic blood flvakumi00 mm[Hg] DO Ming Alexis Work Phone: [facility]09-15-2022 16:10-0400 Heart rate69 /Hong Espinoza Work Phone: [phone]09-15-2022 16:10-0400 Respiratory rate18 /Hong Espinoza Work Phone: [address] [place], [place] 5620809-15-2022 16:10-0400 SaO2% (BldA) [Mass fraction]100 %DO Ming Espinoza Work Phone: [phone])241-[address] [place], [place] 6833809-15-2022 16:10-0400 Systolic blood mm[Hg]DO Minglizz Espinoza Work Phone: [phone] [place], [place] 6833809-15-2022 13:15-0400 Body yaaihx393.48 cmDO Ming Espinoza Work Phone: [phone]09-15-2022 13:15-0400 Body hishwsmrrcj25.6 [degF]DO Ming Espinoza Work Phone: [phone] [place], [place] 6833809-15-2022 13:15-0400 Body iseoau08.5 kgDO Ming Espinoza Work Phone: [phone])905-[address] [place], [place] 6833809-13-2022 10:45-0400 Diastolic blood hspxjpuh81 mm[Hg]DO Ming Espinoza Work Phone: [facility]09-13-2022 10:45-0400 Heart rate66 /Hong Espinoza Work Phone: [address] [place], [place] 5620809-13-2022 10:45-0400 Respiratory rate16 /Hong Lai Alexis Work Phone: [facility]09-13-2022 10:45-0400 SaO2% (BldA) [Mass fraction]100 %DO Minglizz Espinoza Work Phone: [phone]09-13-2022 10:45-0400 Systolic blood vxsasoji092 mm[Hg]DO Ming Espinoza Work Phone: [facility]09-13-2022 08:08-0400 Body mass index (BMI) [Ratio]37.8 kg/m2DO Ming Espinoza Work Phone: [facility]09-13-2022 07:41-0400 Body dxaekp922.48 cmDO Ming Espinoza Work Phone: [facility]09-13-2022 07:41-0400 Body arksuc89.89 kgDO Ming Espinoza Work Phone: [facility]09-13-2022 06:26-0400 Body bxtexiadbal08.5 [degF]DO Ming Espinoza Work Phone: [facility]08-25-2022 11:00-0400 Body .48 cmMaelenita Parham Other [employer] Other 08-25-2022 11:00-0400Body mass index (BMI) [Ratio] 36.76 kg/v3IkrqnuuJesus Parham Other [employer] Other 08-25-2022 11:00-0400Body qtbclirktkh16.6 [degF] Jesus Parham Other [employer] Other 08-25-2022 11:00-0400Body .17 kgMattchong Parham Other [employer] Other 08-25-2022 11:00-0400Diastolic blood uxiiyfyx80 mm[Hg] Jesus Parham Other [employer] Other 08-25-2022 11:00-3423LbZ7% (BldA) [Mass fraction]98 % Jesus Parham Other [employer] Other 08-25-2022 11:00-0400Systolic blood iybcaenk681 mm[Hg] Jesus Parham Other [employer] Other 07-28-2022 14:40-0400Body .48 cmAbdul Toni Other [employer] Other 07-28-2022 14:40-0400Body mass index (BMI) [Ratio] 36.76 kg/j8Oaiut Toni Other [employer] Other 07-28-2022 14:40-0400Body lgtoxinlzrv27.7 [degF]Yaneth Toni Other [employer] Other 07-28-2022 14:40-0400Body duoimi83.17 kgAbdul Toni Other [employer] Other 07-28-2022 14:40-0400Diastolic blood yxsxqmtm61 mm[Hg] Yaneth Toni Other [employer] Other 07-28-2022 14:40-0400Respiratory rate18 /minAbdul Toni Other [employer] Other 07-28-2022 14:40-4454GiH8% (BldA) [Mass fraction]98 % Yaneth Toni Other [employer] Other 07-28-2022 14:40-0400Systolic blood mm[Hg] Yaneth Toni Other [employer] Other 07-26-2022 10:10-0400Body huoszg543.48 cmSsindy Juniorault Other [employer] Other 07-26-2022 10:10-0400Body mass index (BMI) [Ratio] 37.86 kg/t3Xfmnsvhfq Shantell Other [employer] Other 07-26-2022 10:10-0400Body xdljmvzrnja97.4 [degF] Dipika Shantell Other [employer] Other 07-26-2022 10:10-0400Body kmjfym87.9 kgStmikaela Juniorault Other [employer] Other 07-26-2022 10:10-0400Diastolic blood frkoqvrw09 mm[Hg] Dipika Shantell Other [employer] Other 07-26-2022 10:10-0400Respiratory rate16 /minSsindy Shantell Other [employer] Other 07-26-2022 10:10-7673WxL4% (BldA) [Mass fraction]100 % Dipikamundo Stinson Other [employer] Other 07-26-2022 10:10-0400Systolic blood sgdgdypc921 mm[Hg] Dipikamundo Stinson Other [employer] Other 06-27-2022 09:13-0400Diastolic blood bbyceyzy90 mm[Hg] DO Ming Espinoza Work Phone: [facility]06-27-2022 09:13-0400 Heart rate83 /Hong Espinoza Work Phone: 1(525)992-[address] [place], [place] 6833806-27-2022 09:13-0400 Respiratory rate16 /Hong Espinoza Work Phone: [phone])030-[address] [place], [place] 6833806-27-2022 09:13-0400 SaO2% (BldA) [Mass fraction]97 %DO Ming Espinoza Work Phone: [phone] [place], [place] 6833806-27-2022 09:13-0400 Systolic blood bvvzbvih433 mm[Hg]DO Ming Espinoza Work Phone: 1(576)830-[address] [place], [place] 6833806-27-2022 07:23-0400 Body .48 cmDO Ming Espinoza Work Phone: [phone]06-27-2022 07:23-0400 Body mass index (BMI) [Ratio]37.8 kg/m2DO Ming Espinoza Work Phone: 1(189)523-[address] [place], [place] 6833806-27-2022 07:23-0400 Body .8 [degF]DO Ming Espinoza Work Phone: 1(588)516-[address] [place], [place] 6833806-27-2022 07:23-0400 Body oxizhj56.89 kgDO Ming Espinoza Work Phone: 1(009)401-[address] [place], [place] 6833803-03-2022 16:20-0500 Body .48 cmAbdul Toni Other [employer] Other 03-03-2022 16:20-0500Body mass index (BMI) [Ratio] 37.86 kg/t1Racku Toni Other [employer] Other 03-03-2022 16:20-0500Body ematph10.9 kgAbdul Toni Other [employer] Other 03-03-2022 16:20-0500Diastolic blood nqouqwsk13 mm[Hg] Yaneth Toni Other [employer] Other 03-03-2022 16:20-0500Respiratory rate18 /minAbdul Toni Other [employer] Other 03-03-2022 16:20-6640UlD9% (BldA) [Mass fraction]97 % Yaneth Toni Other [employer] Other 03-03-2022 16:20-0500Systolic blood mm[Hg] Yaneth Toni Other [employer] Other [id number] 16:35-0400Body Kqbjtngcmcn63.3 [degF][place], [place]10-28-2019 16:27-0400Pulse (Heart Rate)110 /minAtl[place]10[place] 16:27-0400Pulse Etspsdhe06 %[place], [place]10-28-2019 16:27-0400Respiratory Rate14 /minAtl[place], [place]10[place] 16:16-0400BP Qjhibhcgy13 mm[Hg][facility], NW85-07-8061 16:16-0400BP Gtrqpmmn08 mm[Hg][place] 08-02-2019 14:59-0400BMI (Body Mass Index)37.79 kg/g0XrfmrOhio State Health System, CZ35-75-2585 14:59-0400Body .72 kgAtl[place], [place] 08-02-2019 14:59-4205Mwypgb405.9 cmTyler [facility] [place] Encounters Encounter DateEncounter TypeCare ProviderFacilityStart: 08-03-2025 End: 57-64-8288Ohayhhwsr Result EncounterGeneric External Data ProviderNOMS External Department UnsolicitedStart: 08-03-2025 End: 21-55-5389Ihiyfwdlz Result EncounterGeneric External Data ProviderNOMS External Department UnsolicitedStart: 07-05-2025 End: 30-61-8461Hucmoxyhw Result EncounterGeneric External Data ProviderNOMS External Department UnsolicitedStart: 07-05-2025 End: 11-32-7154Wuefnyxkr Result EncounterGeneric External Data ProviderNOMS External Department UnsolicitedStart: 06-01-2025 End: 73-17-9548igaxujldlzQLLTDSt. Rita's Hospitaltart: 05-30-2025 End: 00-50-4776Dlwfducib Result EncounterGeneric External Data ProviderNOMS External Department UnsolicitedStart: 05-30-2025 End: 91-79-2107Pfuakilrl Result EncounterGeneric External Data ProviderNOMS External Department UnsolicitedStart: 05-27-2025 End: 32-63-7504Bvwzmr outpatient visit 25 minutesGina Stephy Fajardo NP Work Phone: noVal[facility] Internal MedicineComment on above: Generalized abdominal pain (Primary Dx); Hypokalemia; Immunosuppressed status ([facility]); Essential hypertension ; Type 2 diabetes mellitus with diabetic nephropathy, without long-term current use of insulin ([facility]); Iron deficiency anemia, unspecified iron deficiency anemia type; Gastroesophageal reflux disease without esophagitis; FibromyalgiaStart: 05-27-2025 End: 91-36-2209impwvyaniwNVTTMTQ GARMANNot AvailableStart: 05-24-2025 End: 50-88-0906Ujhjvpskx department patient visitPerri Wong MD Work Phone: [phone]-Wkbstylkp Room Work Phone: Start: 05-04-2025 End: 35-47-1839Qrpptzmzs Result EncounterGeneric External Data ProviderNOMS External Department UnsolicitedStart: 05-04-2025 End: 59-90-0454Vfouobdya Result EncounterGeneric External Data ProviderNOMS External Department UnsolicitedStart: 04-11-2025 End: 60-87-0822Vwsxhqo encounter statusMing Espinoza DO Work Phone: noms HealthcareStart: 04-11-2025 End: 05-67-5461Mojuftqc preventive med est patient 40-64yrsMing Espinoza DO Work Phone: [facility] IMComment on above:Benign essential hypertension (Primary Dx); ADPKD (autosomal dominant polycystic kidney disease); Type 2 diabetes mellitus with stage 3a chronic kidney disease, without long-term current use of insulin (HCC); Renal transplant recipient ([facility]); Mixed anxiety and depressive disorder; Chronic fatigue; Encounter for general health examination; Class 1 obesity due to excess calories with serious comorbidity and body mass index (BMI) of 34.0 to 34.9 in adult; Fibromyalgia; Low vitamin D levelStart: 04-11-2025 End: 33-00-1540fghjbhvwipBJFQJRE A Long AvailableStart: 04-02-2025 End: 35-13-3491Cjjbfityv Result EncounterGeneric External Data ProviderNOMS External Department UnsolicitedStart: 04-02-2025 End: 18-39-4974Ilgvvkktl Result EncounterGeneric External Data ProviderNOMS External Department UnsolicitedStart: 03-03-2025 End: 15-62-8473Jjzfrpphm Result EncounterGeneric External Data ProviderNOMS External Department UnsolicitedStart: 03-03-2025 End: 58-81-5123Dtbvfuzmg Result EncounterGeneric External Data ProviderNOMS External Department UnsolicitedStart: 01-29-2025 End: 00-16-5302Ankbebdtn Result EncounterGeneric External Data ProviderNOMS External Department UnsolicitedStart: 01-29-2025 End: 86-47-2595Lpgwwvwxq Result EncounterGeneric External Data ProviderNOMS External Department UnsolicitedStart: 01-03-2025 End: 76-80-0657Cwkvjs outpatient visit 25 minutesMing Preston Alexis DO Work Phone: noms [facility] IMComment on above:Polycystic kidney disease (Primary Dx); Anemia of renal disease; Immunosuppressive management encounter following kidney transplant (CMS/HCC); Renal transplant recipient (CMS/HCC); Type 2 diabetes mellitus with stage 3a chronic kidney disease, without long-term current use of insulin (HCC) (CMS/HCC); Dyslipidemia (CMS/HCC)Start: 01-03-2025 End: 97-51-9567avhnipgztdWOLEEYL A GARMANNot AvailableStart: 12-03-2024 End: 69-93-7412Jxitkdtrc Result EncounterGeneric External Data ProviderNOMS External Department UnsolicitedStart: 12-03-2024 End: 23-22-0899Jsekdfunf Result EncounterGeneric External Data ProviderNOMS External Department UnsolicitedStart: 11-12-2024 End: 18-45-8835gbmsnfjdyeWVMZVSt. Rita's Hospitaltart: 11-04-2024 End: 68-45-6614Hodsojmbj Result EncounterGeneric External Data ProviderNOMS External Department UnsolicitedStart: 11-04-2024 End: 05-76-4750Rcmdawyhl Result EncounterGeneric External Data ProviderNOMS External Department UnsolicitedStart: 10-14-2024 End: 51-19-2818Rvzaqcfty Result EncounterGeneric External Data ProviderNOMS External Department UnsolicitedStart: 10-14-2024 End: 18-56-6279Dylcibsec Result EncounterGeneric External Data ProviderNOMS External Department UnsolicitedStart: 10-14-2024 End: 06-30-5750ckuccdmfijYrysrls Garman DO Work Phone: [facility] Work Phone: Start: 10-14-2024 End: 22-99-7557Xhyyxtew ReferredChongchemalizz Espinoza DO Work Phone: [facility]-LAB Path Spec [facility] HospStart: 10-02-2024 End: 63-95-9795Xyfqzonle Result EncounterGeneric External Data ProviderNOMS External Department UnsolicitedStart: 10-02-2024 End: 40-15-4984Codrjtvkl Result EncounterGeneric External Data ProviderNOMS External Department UnsolicitedStart: 10-01-2024 End: 20-63-7103Bofumk outpatient visit 40 minutesMing Espinoza DO Work Phone: noms [facility] IMComment on above:Benign essential hypertension (CMS/HCC) (Primary Dx); Renal transplant recipient (CMS/HCC); Immunosuppressive management encounter following kidney transplant ([facility]/HCC); Anemia of renal disease; Iron deficiency anemia, unspecified iron deficiency anemia type; Type 2 diabetes mellitus with stage 3a chronic kidney disease, without long-term current use of insulin (HCC) (CMS/HCC); Dyslipidemia (CMS/HCC); Fibromyalgia; Need for immunization against influenzaStart: 10-01-2024 End: 50-58-1854vqkkjzvxafRPAZGVG A GARMANNot AvailableStart: 09-14-2024 End: 95-13-1718Tnajqk outpatient visit 10 minutesBlake Hinojosa DO Work Phone: noms [facility] OBComment on above:Cyst of left ovaryStart: 09-14-2024 End: 03-38-0048akicodylmoPSXQBUU D BRUNERNot AvailableStart: 08-31-2024 End: 78-84-6923Klxxbffpb Result EncounterGeneric External Data ProviderNOMS External Department UnsolicitedStart: 08-31-2024 End: 55-07-5988Qibllfcko Result EncounterGeneric External Data ProviderNOMS External Department UnsolicitedStart: 08-25-2024 End: 61-54-9776Gxonsfy encounter procedureMing Espinoza DO Work Phone: [facility] Work Phone: Start: 08-25-2024 End: 71-99-6768reczilrpvbDxxhfpv Garman DO Work Phone: [facility] Work Phone: Start: 08-02-2024 End: 59-63-9760Xrfeznhf Result EncounterBlake Hinojosa DO Work Phone: noms External Department UnsolicitedStart: 08-02-2024 End: 51-62-8411Lekbdwvv Result EncounterBlake Hinojosa DO Work Phone: noms External Department UnsolicitedStart: 08-02-2024 End: 53-20-9098Ddenew outpatient visit 10 Andre Hinojosa DO Work Phone: noms [facility] OBComment on above:Cyst of left ovary (Primary Dx); Dyspareunia in femaleStart: 08-02-2024 End: 10-63-6155hhfzhwsffaLHNCSEF Ginette WISENELIALorraine AvailableStart: 08-02-2024 End: 74-32-6456Mvdmdxn encounter procedureDO Ming Espinoza Work Phone: [facility] Work Phone: Start: 08-02-2024 End: 50-25-5979ydmzealpdvMX Ming Espinoza Work Phone: [facility] Work Phone: Start: 07-31-2024 End: 07-62-4477Xaaykzptu Result EncounterGeneric External Data ProviderNOMS External Department UnsolicitedStart: 07-31-2024 End: 38-83-1250Rbkqqngyy Result EncounterGeneric External Data ProviderNOMS External Department UnsolicitedStart: 07-27-2024 End: 66-09-6342Pxhein outpatient visit 15 [address] [facility] Work Phone: noms [facility] IMComment on above:Acute non-recurrent pansinusitis (Primary Dx); Side effect of medicationStart: 07-27-2024 End: 36-70-0669tegnnwtnswCXIQONN A GARMANNot AvailableStart: 06-29-2024 End: 01-04-1594Pddtghklb Result EncounterGeneric External Data ProviderNOMS External Department UnsolicitedStart: 06-29-2024 End: 82-94-6759Khsslxbxu Result EncounterGeneric External Data ProviderNOMS External Department UnsolicitedStart: 06-10-2024 End: 79-29-4523Inziqnegp Result EncounterGeneric External Data ProviderNOMS External Department UnsolicitedStart: 06-10-2024 End: 06-83-2274Jictkcgsn Result EncounterGeneric External Data ProviderNOMS External Department UnsolicitedStart: 06-02-2024 End: 57-11-5431Julontqhy Result EncounterGeneric External Data ProviderNOMS External Department UnsolicitedStart: 06-02-2024 End: 21-41-6087Codsccvme Result EncounterGeneric External Data ProviderNOMS External Department UnsolicitedStart: 03-15-2024 End: 21-69-0006uopjznjektUNNP Andreia Boyceb Work Phone: [facility] Work Phone: Start: 03-15-2024 End: 18-84-5760Lbpmjztt ReferredAPRN Andreia Boyceb Work Phone: [facility]-Lab [place] Work Phone: Start: 03-15-2024 End: 19-44-6274Adzgmhm encounter procedureAPRN Andreia Edwards Work Phone: [facility] Urgent Care Justin Work Phone: Start: 11-06-2023 End: 90-15-0047xnqgmyrfzhGR Ming Espinoza Work Phone: [facility] Work Phone: Start: 11-06-2023 End: 82-32-6244Grgeuxp encounter procedureDO Ming Espinoza Work Phone: [facility]-Lab [address] Work Phone: Start: 07-30-2022 End: 74-39-3677htsvbcymifPrict Toni Other [employer] Other Start: 76-86-8156Deyxms outpatient visit 25 minutes Yaneth QadirFPG NephrologyStart: 07-29-2022 End: 72-48-6428dwdsmppralDQPFG QADIRFacility:R9Lombs: 07-16-2022 End: 86-05-5870kmeomeolkdED Ming Espinoza Work Phone: [facility] Work Phone: Start: 07-16-2022 End: 04-71-3631Msplplk encounter procedureDO Ming Espinoza Work Phone: [facility] Start: 07-03-2022 End: 85-67-7737mbwcgjmkcfPalxyi Ruttino Other [employer] Other Start: 91-78-5955Vumkvc-up encounterEstefania Haney Vascular SurgeryStart: 06-20-2022 End: 70-43-0371vpzpehztuuAoavrcu Langenberg Other [employer] Other Start: 20-19-2172Yfnngaven encounterMaelenita Parham [facility] Vascular SurgeryStart: 06-20-2022 End: 93-85-9908Gjkvsqfna department patient visitDO Ming Espinoza Work Phone: [facility]-Emergency RoomStart: 06-18-2022 End: 65-01-3269Outpyqyug to same day surgery centerDO Ming Espinoza Work Phone: [facility]-Surgery Center Main CampusStart: 06-14-2022 End: 59-43-7675Xccjflx encounter procedureDO Ming Espinoza Work Phone: [facility]-Pre-Surgical Testing Start: 06-06-2022 End: 61-24-6676tspanwxyftIW BRINDA Pérezcility:G9Sztxh: 06-05-2022 End: 72-43-3594Jcyyepa encounter procedureDO Ming Espinoza Work Phone: [facility]-Pre-Surgical Testing Start: 06-03-2022 End: 76-84-1094vuaibtktnpDpmjnlc Langenberg Other [employer] Other Start: 28-58-5444Gacfvuhyd for other preprocedural examinationMatthew LangjaclynG Vascular SurgeryStart: 03-65-7376Lrqzvrecy encounterMatthew LangjaclynFPG Vascular SurgeryStart: 05-30-2022 End: 95-43-0551omptewffebRbejybo Langenberg Other [employer] Other Start: 21-51-5495SLOR visit new patientMatthew DioneG Vascular SurgeryStart: 05-30-2022 End: 44-19-5638Zjfocmt encounter procedureDO Ming Espinoza Work Phone: [facility]-Ultrasound [facility] VascularStart: 46-04-1507evusrdojxbTN BLAKE HINOJOSAFacility:G5Zcsxq: 05-02-2022 End: 49-96-2683pwwgxkjwkmEcwul Toni Other [employer] Other Start: 08-68-1627Mzfgjq outpatient visit 25 minutes Yaneth QadirFPG NephrologyStart: 04-30-2022 End: 36-79-8879srxixakdjqItqjrghcp Breault Other [employer] Other Start: 74-37-0140Rgzmbs outpatient visit 15 minutes Dipika Arce [facility] ClydeStart: 34-94-2067Jusldxxeg for preprocedural laboratory examinationABDUL QADIRThe Eagletown HospitalStart: 42-45-4323Tihoerzfy for other preprocedural examinationDR DOCTOR MISCThe [facility]letown HospitalStart: 04-27-2022 End: 52-90-6196Eplarvdwl for other preprocedural examinationDR MING ESPINOZA Facility:V7Xnhku: 04-27-2022 End: 84-72-7274iglztahstiRH MING ESPINOZAFacility:B7Shwxn: 04-27-2022 End: 73-81-7550Rqodgydvm for preprocedural laboratory examinationABDUL TONI Facility:D6Smnnk: 00-86-3869Kgropqlab for other specified special examinationsDR DOCTOR MISCThe Lala HospitalStart: 04-01-2022 End: 40-98-8470Ecaeauilm to same day surgery centerDO Ming Espinoza Work Phone: [facility]-Digestive HealthStart: 03-29-2022 End: 83-00-7839yfuslqdvlhYO DOCTOR MISCFacility:K2Fogdh: 03-29-2022 End: 71-03-5231Laucamfqb for other specified special examinationsDR DOCTOR MISC Facility:F4Fwdkc: 03-28-2022 End: 02-14-0605Lavispx encounter procedureDO Ming Espinoza Work Phone: [facility] Qet-Aer-Udferllp Testing Start: 02-26-2022 End: 78-72-3768ubluqxgzooVsehfmv Robert Other [employer] Other Start: 86-10-4570Uhkvhfvqa encounterCamsariah JonesFPG Referral CoordinatorStart: 12-06-2021 End: 35-05-1164qbokkjgdeeHoauh Toni Other [employer] Other Start: 84-01-9177Tdfuea outpatient visit 25 minutes Yaneth QadirFPG Nephrology ClydeStart: 12-03-2021 End: 98-80-1678tdnyasdqhhGKZUU QADIRFacility:P3Dfsul: 09-01-2021 End: 21-01-2908tvpgnqghufTC MING ESPINOZAFacility:L3Rwmcq: 08-02-2019 End: 97-03-4741Tdwvjamqh department patient visitTYLER Wilson Street Hospitaltart: 08-02-2019 End: 79-48-4182Nvoyodymj department patient visitTyler Sci-[facility] Work Phone: [facility] EDComment on above:Acute sepsis (HCC) (Primary Dx); Acute cystitis without hematuria; Chronic renal failure, stage 4 (severe) (HCC); Polycystic kidney disease Procedures DateProcedureProcedure DetailPerforming ClinicianStart: 09-93-3914KQS CBC WITH AUTO DIFFGeneric External Data ProviderStart: 26-82-6032CGK CBC WITH AUTO DIFF Generic External Data ProviderStart: 50-73-9271KLJ CBC WITH AUTO DIFFGeneric External Data ProviderStart: 73-52-8466NTU MAGNESIUMGeneric External Data ProviderStart: 25-29-0892PKE PHOSPHOROUSGeneric External Data ProviderStart: 34-66-0724DUD URIC ACIDGeneric External Data ProviderStart: 84-17-6600LPO CMP (CMP) (FOR REMOTE [facility] USE)Generic External Data ProviderStart: 07-91-7644LCVJX BILIRUBIN, DIRECTGeneric External Data ProviderStart: 66-18-0398LWL CBC WITH AUTO DIFFGeneric External Data ProviderStart: 45-40-2433EIB MAGNESIUMGeneric External Data ProviderStart: 01-25-8920VBN PHOSPHOROUSGeneric External Data ProviderStart: 37-43-6603LKL URIC ACIDGeneric External Data ProviderStart: 57-83-4439XNL CMP (CMP) (FOR REMOTE [facility] USE)Generic External Data ProviderStart: 43-47-0598CTZZH BILIRUBIN, DIRECTGeneric External Data ProviderStart: 15-16-9277SSA CBC WITH AUTO DIFFGeneric External Data ProviderStart: 01-29-2025 ALL CBC WITH AUTO DIFFGeneric External Data ProviderStart: 96-54-6244MSW CBC WITH AUTO DIFFGeneric External Data ProviderStart: 20-98-7368Pcqlhkaf identified in Urine by CultureGeneric External Data ProviderStart: 33-48-4072GAV URINALYSISGeneric External Data ProviderStart: 87-17-2117GFU MAGNESIUMGeneric External Data ProviderStart: 80-34-3145TJL PHOSPHOROUSGeneric External Data ProviderStart: 11-14-5832RKZ URIC ACIDGeneric External Data ProviderStart: 27-57-8475MCP CMP (CMP) (FOR REMOTE [facility] USE)Generic External Data ProviderStart: 02-65-6764UFMCI BILIRUBIN, DIRECTGeneric External Data ProviderStart: 09-36-1867GNM CBC WITH AUTO DIFFGeneric External Data ProviderStart: 08-31-2024 ALL LIPID PROFILE (FASTING)Generic External Data ProviderStart: 73-37-5887ORY MAGNESIUMGeneric External Data ProviderStart: 04-20-8607IEX PHOSPHOROUSGeneric External Data ProviderStart: 53-04-6075PZJ URIC ACIDGeneric External Data ProviderStart: 87-84-5986FMY CMP (CMP) (FOR REMOTE [facility] USE)Generic External Data ProviderStart: 22-20-3669IZYYJ BILIRUBIN, DIRECTGeneric External Data Provider Start: 75-42-6801JWC HEMOGLOBIN G4HYipvkjm External Data ProviderStart: 08-25-2024 End: 50-31-8170Zfikusard mammography of bilateral breastsMing Espinoza DO Work Phone: Start: 98-90-3673Noxwcxganjdphkde antigen ceaWilliam Micaela DO Work Phone: comment on above:Serial tumor marker results determined by assays using different manufacturers or methods may not be comparable. [facility] hydraulic hammer operator and method: RUSSELL UNICEL DXI, 2 SITE IMMUNOENZYMATIC SANDWICH ASSAY. Start: 71-73-0890Bxnuv chest X-rayDO Ming Espinoza Work Phone: Start: 98-78-9770Hvcqrgzllgnxhxob antigen ceaWilliam D Micaela DO Work Phone: comntlh on above:Result Comment: Serial tumor marker results determined by assays using different manufacturers or methods may not be comparable. [facility] hydraulic hammer operator and method: RUSSELL UNICEL DXI, 2 SITE IMMUNOENZYMATIC ?SANDWICH? ASSAY. PERFORMED BY: [place] [address] PATHOLOGIST TOOLROOM CLERK ANAHY MCKEE M.D.Performed By: #### CEA #### [place] [address] [place] #### CA125 #### [facility] ,Start: 26-15-7058Dzphofwuohh tumor antigen quantitative ca 125William D Micaela DO Work Phone: start: 90-95-8091YDN CBC WITH AUTO DIFFGeneric External Data ProviderStart: 27-57-6768KCN CBC WITH AUTO DIFFGeneric External Data ProviderStart: 37-23-3825Jjvtcfwe identified in Urine by CultureGeneric External Data ProviderStart: 36-19-1924RTO CBC WITH AUTO DIFFGeneric External Data ProviderStart: 04-62-3141Rzqjowx of renal transplantRenal transplant recipientGeneric ProviderStart: 07-16-2022 End: 10-52-2509Nftltzqez mammography of bilateral breastsDO Ming Espinoza Work Phone: Start: 75-58-1920Jprdcvhmgyync fistulizationDO Ming Espinoza Work Phone: Start: 03-05-9777Jrdexxodra (US) doppler flow mapping of vein of upper limbDO Ming Espinoza Work Phone: Start: 21-12-9179Kqphrsajq colonoscopyDO Ming Espinoza Work Phone: Start: 70-11-2647DamwaieomgnBrfhkpv ProviderStart: 60-28-5158Zjoek of lactateTYLER WEESEStart: 85-53-4298Xyadn of troponin quantitativeTYLER WEESEStart: 21-62-1165Kyurw of lactateTyler Kaitlin Work Phone: Start: 76-40-8534Rfniz of troponin quantitativeTyler Kaitlin Work Phone: Start: 79-75-4769Zwrqsnf bacterial quanttative colony count urineTYLER WEESEStart: 86-08-5241Jgkuvtpsqo exam chest single viewTYLER WEESEStart: 82-78-2381Jk thorax w/contrast materialTYLER WEESEStart: 08-02-2019 Assay of lipaseTYLER WEESEStart: 65-31-1860Ofrxp of troponin quantitativeTYLER WEESEStart: 36-39-5738Pilcm count complete auto&auto difrntl wbcTYLER KAITLIN Start: 81-45-9971GGECG NATRIURETIC PEPTIDETYLER WEESEStart: 85-37-6930Jbouyc dgradj products d-dimer quantitativeTYLER WEESEStart: 96-85-6879Idgnqwidptu time VIDAL WEESEStart: 89-42-4753Kelpd of lactateTYLER WEESEStart: 88-18-8023Ivzieqw bacterial blood aerobic w/id isolatesTYLER WEESEStart: 88-89-7494CUHWDGZJ OXYGEN THERAPY PROTOCOLTYLER WEESEStart: 53-64-6829Oly routine ecg w/least 12 lds w/i&rTYLER WEESEStart: 59-58-8376Xaqvuesicy microscopic onlyTyler Kaitlin Work Phone: Start: 36-78-6684Hakvn dip stick/tablet rgnt auto w/o microscopyTyler Goko Work Phone: Start: 58-66-8651Akhfwokfob exam chest single view Vidal Goko Work Phone: Start: 97-41-0869Li angiography chest w/contrast/noncontrastTyler Goko Work Phone: Start: 88-21-2272Tefmt of lipaseTyler Kaitlin Work Phone: Start: 75-15-6129Stbnh of troponin quantitativeTyler Goko Work Phone: Start: 21-95-5885Eermm count complete auto&auto difrntl wbcTyler Goko Work Phone: Start: 86-88-4083Osrgll dgradj products d-dimer quantitativeTyler Goko Work Phone: Start: 45-78-7785IYZNFSX, SEPSISTyler Kaitlin Work Phone: Start: 96-91-9821Klwgtwypzva peptideTyler Kaitlin Work Phone: Start: 16-03-0906Sdnklheliwb timeTyler Goko Work Phone: Start: 70-37-6266EIXVWVQB OXYGEN THERAPY PROTOCOLTyler Kaitlin Work Phone: Start: 22-69-0283Oih routine ecg w/least 12 lds w/i&r Vidal Goko Work Phone: History of renal transplantRenal transplant recipient ([facility])Ming Espinoza DO Work Phone: History of renal transplantRenal transplant recipient (CMS/HCC)Ming Espinoza DO Work Phone: History of renal transplantRenal transplant recipient (HCC)Ming Espinoza DO Work Phone: SARS Antigen (LFIA)DO Ming Espinoza Work Phone: Plan of Treatment DateCare ActivityDetailAuthorStart: 56-25-6145Tshjkcikw for malignant neoplasm of colonNOAL HealthcareStart: 10-17-2025 End: 08-66-5930Axuyvff encounter lxfmeirgd02/12/2026 8:30 AM EST Office Visit [facility] [place] [facility] [address] [place] [address] [facility] MedicineStart: 67-60-8764Drfzztpwr for malignant neoplasm of breastMammogramASHLEY [facility] HealthcareStart: 20-61-6723Uzabkeqxa vaccinationInfluenza Vaccine (#1)[facility] HealthcareStart: 68-22-8261Avvnwafvxr A1c measurementDiabetes: Hemoglobin C3FMUNF HealthcareStart: 11-89-6563Zxxfium function panelOur Lady of Mercy Hospital - Andersontart: 92-41-6938YmauidvjoOur Lady of Mercy Hospital - Andersontart: 66-31-1999Rpfrq screening for proteinDiabetes: Urine Protein ScreeningNOAL HealthcareStart: 04-11-2025 End: 18-58-8915Axlxnpc encounter rtnidopuy71/07/2025 8:00 AM EDT Office Visit [facility] [address] [place], [place] [address] Ming Espinoza, DO [address] [place] [address] [facility] IMStart: 04-06-2025 End: 47-38-1837Racncfz encounter rljtovzwq38/02/2025 8:15 AM EDT Office Visit [facility] [address] [place] [address] Ming Espinoza, DO [address] [place] [address] NOMLiliane [facility] IMStart: 04-01-2025 End: 93-24-9123Sjoawqi encounter rpwgsootp22/27/2025 8:15 AM EDT Office Visit [facility] [address] [place] [address] Ming Espinoza, DO [address] [place] [address] [facility] IMStart: 88-07-9178Jymppskt identified in Urine by CultureUrine [facility] Hospitaltart: 50-86-9015Fzlvq [facility]tart: 10-01-2024 End: 66-56-1276Ilnwowu encounter pnyrwzzbb05/27/2024 8:15 AM EST Office Visit [facility] [address] [place], [place] [address] Ming Espinoza, DO [address] [place] [address] [facility] IMStart: 09-14-2024 End: 47-80-0658Zgkakas encounter irhcuipnj95/10/2024 8:45 AM EST Office Visit [facility] [address] [place] [address] Blake Hinojosa, DO [address] [place] [address] [facility] OBStart: 99-22-7201Tghzr screening for protein Diabetes: Urine Protein ScreeningNOSoutheast Missouri HospitalStart: 08-02-2024 End: 45-94-0428Jfkkrer encounter nforqtoef66/28/2024 11:00 AM EDT Office Visit [facility] [address] [place] [address] Blake Hinojosa, DO [address] [place] [address] [facility] OBStart: 08-02-2024 End: 25-13-3414Oclumkhhasdc / ancillary services /28/2024 10:15 AM EDT Ancillary Procedure [facility] [address] [place] [address] [facility] SWS OBStart: 71-21-3504MfzfwijzaAdena [facility]ayette Medical [facility] Start: 62-21-6524Uqbvipkeku A1c measurementDiabetes: Hemoglobin E4ZRTBY HealthcareStart: 24-43-0669Dwlkuyysh vaccinationInfluenza Vaccine (#1)[facility] HealthcareStart: 41-30-3297Glyzjcwo identified in Urine by CultureOur Lady of Mercy Hospital - Andersontart: 14-43-6557Mfvacnrc identified in Urine by Culture [facility] Andersontart: 52-60-4950ZhwrqzuotOur Lady of Mercy Hospital - Andersontart: 05-03-3680Zcgaq screening for proteinDiabetes: Urine Protein ScreeningASHLEY REGIONAL [facility] HealthcareStart: 84-85-5389Rptnqpxws for malignant neoplasm of breastMammogramASHLEY REGIONAL MEDICAL CENTER HealthcareStart: 40-10-4003MbzdvejvyAdena [facility]ayette Medical [facility] Start: 63-80-0527SyejuzbknOur Lady of Mercy Hospital - Andersontart: 55-53-0477WkpsvhpsbCommunity [facility] Work Phone: Start: 60-60-2513Mihqefnet vaccinationFlu vaccine (#1) [facility]: 24-76-1536Zikmy screenLipid screenMetroHealth [facility]: 10-62-4591Qqddxbgb cancer screenCervical cancer screenMetroHealth [facility]: 49-86-8141BPrC/Tdap/Td vaccine (1 - Tdap)DTaP/Tdap/Td vaccine (1 - Tdap)[facility]: 42-40-8764HHX screenHIV [facility]: 41-62-3002Hrelfmir screeningDiabetes: Retinopathy ScreeningNOAL HealthcareStart: 69-36-9409Wsiecwqiuj monitoringCreatinine monitoringMetroHealth [facility] Center: 33-30-8356Qwcxqpvow monitoringPotassium monitoringMetroHealth [facility]: 08-14-1785Htdbqqcnb for malignant neoplasm of colonASHLEY REGIONAL [facility] Xmadcejwld54 hour urine measurementAdena Fayette Medical CenterAlbumin [Mass/volume] in Serum or PlasmaAdena [facility] Center Albumin/Globulin ratioAdena Fayette Medical CenterAlbumin/Globulin ratio [facility] CenterAldolase measurementAdena [facility]ayette Medical CenterAnion gap measurementAdena [facility] End: 53-30-0640Umfjngyy identified Cx Nom (U)Urine Culture Microbiology STAT One Time for 1 Occurrences starting 08/02/2019 until 08/02/2019[facility] [place] Comment on above:One Time for 1 Occurrences starting 08/02/2019 until 08/02/2019 Bacteria identified Cx Nom (U)Urine Culture Microbiology STAT 08/02/2019 1:00 PM [place], KYBacteria identified in Urine by CultureURINE CULTURE, ROUTINE Lab Routine 06/10/2024 1:35 PM EDTNOAL HealthcareBacteria identified in Urine by CultureURINE CULTURE, ROUTINE Lab Routine 11/04/2024 8:55 PM ESTNOAL HealthcareBasophils [#/volume] in Blood by Automated CentervilleBasophils/100 leukocytes in Blood by Automated CentervilleBilirubin.indirect [Mass/volume] in Serum or Plasma [facility] CenterCA 125CA 125 Lab Routine Cyst of left ovary Ordered: 08/02/2024[facility] CampusComment on above:Ordered: 4Cancer Ag 125 [Units/volume] in Serum or PlasmaAdena Fayette Medical Center Carcinoembryonic Ag [Mass/volume] in Serum or PlasmaCEA Lab Routine Cyst of left ovary Ordered: 08/02/2024[facility] Work Phone: comment on above:Ordered: 08/02/2024 End: 07-13-2205Cihfdhj blood #1Culture blood #1 Microbiology STAT One Time for 1 Occurrences starting 08/02/2019 until 08/02/2019[facility] [place]Comment on above:One Time for 1 Occurrences starting 08/02/2019 until 08/02/2019 End: 66-78-4083Luzxteq blood #2Culture blood #2 Microbiology STAT One Time for 1 Occurrences starting 08/02/2019 until 08/02/2019[place], [place]:One Time for 1 Occurrences starting 08/02/2019 until 08/02/2019EKG 12 Lead EKG 12 Lead ECG STAT 08/02/2019 12:25 PM EDOhioHealth Arthur G.H. Bing, MD, Cancer CenterTORSTENElectrophoresis: hyhvr-6-lqenattvUzwltrinzAdena Fayette Medical CenterElectrophoresis: dxpcy-6-lqysansnUtxserrblAdena Fayette Medical CenterElectrophoresis: beta-globulin [facility] CenterElectrophoresis: gamma globulinAdena Fayette Medical CenterEosinophils/100 leukocytes in Blood by Automated count [facility] CenterErythrocyte distribution width [Ratio] by Automated countAdena Fayette Medical CenterErythrocytes [#/volume] in Blood [facility] CenterGlobulin [Mass/volume] in [facility] HospitalGlobulin [Mass/volume] in [facility] HospitalGlomerular filtration rate [Volume Rate/Area] in Serum, Plasma or Blood by CreatinineAdena Fayette Medical CenterHematocrit [Volume Fraction] of [facility] HospitalHemoglobin [Mass/volume] in BloodAdena Fayette Medical CenterHomogenous nuclear Ab pattern [Titer] in SerumAdena Fayette Medical CenterIgA [Mass/volume] in Serum or PlasmaAdena Fayette Medical CenterIgG [Mass/volume] in Serum or [facility] LimaIgM [Mass/volume] in Serum or [facility] Immunofixation for UrineAdena Fayette Medical CenterInitiate Oxygen Therapy ProtocolInitiate Oxygen Therapy Protocol Respiratory Care Routine Daily until discontinued starting 08/02/2019, 2 completed[facility], CaviarComcody on above:Daily until discontinued starting 08/02/2019, 2 completed End: 75-65-2197Ufujxkp, SepsisLactate, Sepsis Lab Timed Now Then Every 2hr for 2 Occurrences starting 08/02/2019 until 08/02/2019, 1 completedTri[facility], [place]Comment on above:Now Then Every 2hr for 2 Occurrences starting 08/02/2019 until 08/02/2019, 1 completedLeukocytes [#/volume] corrected for nucleated erythrocytes in Blood by Automated counAdena Fayette Medical Center Leukocytes [#/volume] in BloodAdena Fayette Medical CenterLymphocytes [#/volume] in Blood by Automated countAdena Fayette Medical Center Lymphocytes/100 leukocytes in Blood by Automated CentervilleMCH [Entitic mass] by Automated [place] MCHC [Mass/volume] by Automated CentervilleMCV [Entitic volume] by Automated CentervilleMeasurement of monoclonal protein concentrationAdena Fayette Medical CenterMonocytes [#/volume] in Blood by Automated countAdena Fayette Medical Center Monocytes/100 leukocytes in Blood by Automated countAdena Fayette Medical CenterNeutrophils [#/volume] in Blood by Automated CentervilleNeutrophils/100 leukocytes in Blood by Automated CentervilleNuclear Ab [Titer] in SerumAdena Fayette Medical CenterNucleated erythrocytes [Presence] in Blood by Automated CentervillePatient EducationHarrison Community Hospital Ctr Work Phone: Patient referralHarrison Community Hospital Ctr Work Phone: Platelet mean volume [Entitic volume] in Blood by Automated CentervillePlatelets [#/volume] in Blood [facility] CenterPotassium [Moles/volume] in Serum or Plasma [facility] Work Phone: Protein [Mass/volume] in Serum or PlasmaAdena Fayette Medical CenterProtein [Mass/volume] in UrineOur Lady of Mercy Hospital - Andersonerum immunofixationAdena [facility] Center Immunizations Immunization DateImmunizationNotesCare WuzsewfpSogfutka48-90-9571Swmrqsety, Madin Sarah Canine Kidney, subunit, trivalent, injectable, contains preservative Ming Espinoza DO Work Phone: [facility] CampusUjxorlohfo28-19-2951ysqfjupko virus vaccine, unspecified formulationMing Espinoza DO Work Phone: [facility] CampusWwuxnhohvh01-70-7364Tcigwgfya, injectable, Madin Mckee Canine Kidney, preservative free, quadrivalentGeneric ProviderNOSoutheast Missouri HospitalDsdwhebxzy36-09-3924xvalcckuh virus vaccine, unspecified formulationGeneric Waldo HospitalLuibyxdduy91-85-1063PQQZJ-05 Ad26.COV2.S (Ainsley)DO Ming Ibarraman Work Phone: [facility]08-24-2020influenza, high dose seasonal, preservative-freeGeneric [facility]11-06-2019 influenza, injectable, madin sarah canine kidney, preservative freeGeneric Waldo HospitalZxnjdzoaid04-05-2622zlfywqwapcif polysaccharide vaccine, 23 valent Generic [facility] HospitalSzttbkfhks33-56-9981jzhcxufp influenza, intradermal, preservative freeGeneric [facility] Payers DatePayer CategoryPayerPolicy [id number] Health InsuranceMEDICAL MUTUAL Member Subscriber Plan / Payer (Effective 2023-Present) Name: Mandeep Puri Relation to Subscriber: Spouse Name: Evan Puri Date of : 1970 Address: [address] [place] [address] Payer ID: Not on file Type: Not on file Address: [address] [place] [id number] [employer] [id number] 2023- [address] [place] [id number] [employer] [address] xxxxxxxxx 2015- [phone] [address] [place] [id number] [id number] [id number] 2.16.840.1.058657.3.57[id number] 2.16.840.1.849781.3.57[id number] 2.16.840.1.944977.3.57[id number] 2.16.840.1.450114.3.57[id number] 2.16.840.1.832225.3.57[id number] 2..840.1.548615.3.57[id number] 2..840.1.829896.3.57[id number] 2..840.1.643882.3.57[id number] 2..840.1.386254.3.57[id number] 2..840.1.640607.3.57[id number] 2..840.1.946114.3.57[id number] 2.16.840.1.886064.3.57[id number] 2..840.1.907999.3.57[id number] 2.16.840.1.803771.3.57[id number] 2..840.1.831139.3.57[id number] 2.16.840.1.370393.3.57[id number] 2..840.1.545643.3.579.[id number] 2.16.840.1.572903.3.579.2.371796-58-6649Groi-wwg 7s0937q7-60g9-0553-657i-2of82668zb5040-63-8559Pxghdty07747431481-54-7141Gkudcwy [id number] 2.16.8[id number] 2.16840.1.198114.19Unknown [id number] 2.16.840.1.16[id number] 2.840.1.5[id number] 2.16.840.1.618323.3.579.2.531 [id number] 2.0.1.678233.3.579.2.531 Social History DateTypeDetailFacilityTobacco smoking status NHISUnknown if ever smokedSumma Health Akron Campus Magma HQST. LOUIS CHILDREN'S [facility], KYSex Assigned At BirthNot on fileMedina HospitalSoapbox MobileST. LOUIS CHILDREN'S [facility]OS[facility]ITAL, KYStart: 04-19-2024 End: 71-27-5864Btj Assigned At [facility] [employer] Other Start: 06-05-2022 End: 75-48-3341Mvmsief smoking status NHISNever smoked tobacco (finding) [facility] CenterStart: 72-13-5782Qns Assigned At [facility]vue Hospitaltart: 25-93-2108Pebndbv use and exposure Smokeless tobacco non-userNOMS HealthcareStart: 07-27-2024 End: 74-45-6520Tpgjekjtv beverage intakeLifetime non-drinker (finding)NOMS HealthcareStart: 04-19-2024 End: 29-78-8215Xzealhm of Social functionNOMS HealthcareHow often to you have a drink containing alcohol?NeverNOMS HealthcareStart: 12-23-0592Pnm many standard drinks containing alcohol do you have on a typical day?Patient does not drink [facility] HealthcareStart: 47-49-2536Wpdruxs CommentCaffeine: occasional teaNOMS HealthcareStart: 22-24-1272Awxypp identityIdentifies as female gender (finding) [facility] HealthcareStart: 04-46-7399Xghegp orientationHeterosexual (finding)[facility] HealthcareStart: 08-26-2024 End: 21-67-4137DxpUsvfon (finding)[facility] CenterNEGATED: Highlighted [facility] Medical Equipment Procedure CodeEquipment CodeEquipment Original TextEquipment IdentifierDatesUse as [id number]: 06-10-2023 End: 06-09-2024 Goals DatePatient GoalDesired Activity/State Functional Status LcaxSrsixyagdbVghhfxWehofsmb31-01-5632Bzuhmqo Health Questionnaire 2 item (PHQ- 2) [Reported][facility] Clinical Notes 05-17-2020 to 07-27-2025 Note Date & JgliItkgEwkujfti29-82-0825 NoteOn 07/27/2025 pt called because she did not come to scheduled appt with Dr. Parrish to discuss ho-chunk nephrectomy. Pt states work situation currently difficult but has an opportunity in January 2026 to get help with recuperation bc will be off work for [address] Parrish appt now 11/30/2025.[facility]08-28-2025 NoteTC called pt to inform her that Dr. Parrish is agreeable to having her seen in clinic visit to discuss ho-chunk nephrectomy. Communication between Leo, GENERAL DOC and Dr. Parrish confirmed CT previously done in 07/02/2024 is acceptable imaging and no need for newer test. TC called pt who reports that she would prefer appt in July because has surgery planned soon so she will need to be available for him and wants his concern resolved before starting process on ho-chunk nephrectomy. TC and pt agreed on July 27. TC sent email to clinic staff to schedule pt in EPIC.[facility] 06-01-2025 NoteTransplant Clinic Patient : Mandeep Puri; [...] recently was seen at the ER in [facility], started on a course of Cipro, final [...] 04/27/2024 COLORU Yellow 11/12/19 (more content not included)...[facility]08-22-2025 History of Present illness Narrative* Calista Fajardo, NORMA - 05/27/2025 2:30 PM EDT Images from [...] back to 60 mg. - Side Effects: Warren almost comatose on 90 mg dose, felt [...] under the care of a transplant doctor, whomshe sees every 6 months. She gets her blood work done monthly and will have it done again tomorrow morning. She plans to have her old kidney removed before . - Surgery: Kidney transplant in 09/2022. - Follow-up: Sees transplant doctor every 6 months, gets blood work done monthly. - Future Plans: Plans to have old kidney removed before [place]. Blood Pressure Her blood pressure is usually [...] LOW TRANSVERSE 07/23/2003 COLONOSCOPY 04/01/2022 Dx Diverticulosis FL BREAST REDUCTION 1996 TOTAL ABDOMINAL HYSTERECTOMY 03/19/2017 [...] nephropathy, without long-term current use of insulin ([facility]) Diabetes Mellitus: Stable. A1c 5.2. - Continue monitoring blood sugar levels. - Consider reducing Ozempic dosage if fatigue persists. 6. Iron deficiency anemia, unspecified iron deficiency anemia type Iron Deficiency: Chronic. - Take iron every other day. - Add vitamin C 500 mg fbmb-iqm-aqmdnec every other day to aid in absorption. [...] for the above issues. documented in this encounterResearch Medical Center-Brookside CampusObavwzcnsi78-51-2721 NotereUnThe Christ Hospital07-01-2025 NoteExternal Glucose was entered incorrectly in the CMP results from 04/02/25. Correct Glucose was entered separately by clinic staff member.[facility]07-01-2025 NoteresUnThe Christ Hospital 04-05-2025 NoteResultsUnThe Christ Hospital04-30-2025 NoteReviewed poatssium level and pt's request to switch to 10MEQ tabs with Dr. Monterroso. PO received ok to change to 10MEQ and increase to 30MEQ daily. Called pt notified of change and verified pharmacy. Pt requested refills on MagOx that her pharmacy told her the doctor did not approve. [employer] refilled MagOx. Medication list updated.[facility]02-19-2025 Note Patient called stating a urine culture was supposed to be done on 11/12/24. No urine culture was done. Patient states she is still having symptoms of UTI. Patient would like a callback.[facility]02-07-2025 Note Transplant Clinic Patient : Mandeep Puri; [...] recently was seen at the ER in [facility], started on a course of Cipro, final [...] flank pain. None today. Will order Ultrasound ho-chunk and transplant kidney. Pt known hx: Chronic [...] 337 04/23/2024 Endocrine: L (more content not included)...[facility]02-04-2025 NotePatient called in this afternoon c/o ongoing urinary symptoms. She also has back pain, nausea and on/off low grade fever. Patient was treated with Keflex in mid October and recently given Cipro 250 mg BID by local ED. Reviewed with Dr. Elizondo who recommends patient come to ED to be evaluated and determine need for admission. Patient was updated and verbalized understanding.[facility]01-16-2025 NotePt was notified of new order from Dr. Davies by phone to complete Keflex 500mg TID for 1 week. Pt informed and verbalized understanding. RX was sent.[facility]01-16-2025 NoteNoted patient call to transplant clinic stating: [...] had sepsis and was hospitalized @ [facility] four years ago. She at work today and seems in good humor.[facility]01-16-2025 NotePer phone order of Nelson Mcqueen MD, patient notified via phone call to decrease their medication Myfortic dose twice a day 360 mg , will now be on 360mg twice a day an no need for urology FU at this time. Pt informed by phone and verbalized understanding.[facility]01-16-2025 Note Pt called wanting to talk to Lu. She has uti sx's with low grade fever, chills, abd pain. She didn't think of this yesterday when she spoke with Lu. She does want to go ahead and get the abx called into [facility] in [facility]01-15-2025 NoteNoted urine culture report showing E coli MDRO from [facility]. Pt reports using BID Methamine [...] Pt states prior to renal transplant her motorized squad lieutenant prescribed Bactrim for her to prevent UTIs and she wishes that the E Coli was gone from her urine. Verbalized understanding of colonization. Have asked urology clinic [place] staff via [employer] Chat to contact pt for FU with Dr. Davies. Will discuss with this MD plan for return visit.[facility]01-15-2025 NoteFaxed stat request to [facility] for results of 10/14/24 urine culture.[facility]01-07-2025 Note Patient called, states she is having urinary burning, urgency and cloudy urine. Denies fever. Has a history of frequent UTI's and sees Dr. Davies, follow up appt is scheduled next month. Questions if she can get urine culture order sent to local lab at [facility]. . Per Dr. Monterroso, order sent. Reviewed tac level of 3.7, no changes at this time due to possible infection. Patient verbalized understanding.[facility] 09-14-2024 History of Present illness Narrative* Carol Camacho, CIARRA - 09/14/2024 8:45 AM EST Images from the original note were not included. Blake Hinojosa, DO Obstetrics and Gynecology Mandeep Puri 1975 09/14/24 [id number] Ultrasound Follow Up Exam Chief Complaint Patient [...] LOW TRANSVERSE 07/23/2003 COLONOSCOPY 04/01/2022 Dx Diverticulosis FL BREAST REDUCTION 1996 TOTAL ABDOMINAL HYSTERECTOMY 03/19/2017 [...] Date 09/14/24 Time 5:00PM. documented in this encounterResearch Medical Center-Brookside CampusFcmqwzhiau30-69-3059 NotePatient tac level is 8.2, per Dr Sharla anderson, patient notified to decrease envarsus by 0.5 mg, will now be on 1.5 mg daily of envarsus, repeat level in one week. Patient verbalized understanding.[facility]10-28-2024 History of Present illness Narrative* Carol Camacho MA - 08/02/2024 11:00 AM EDT Images from the original note were not included. Blake Hinojosa, DO Obstetrics and Gynecology Mandeep Puri 1975 08/02/24 [id number] Yearly Wellness Exam Chief Complaint Patient presents [...] LOW TRANSVERSE 07/23/2003 COLONOSCOPY 04/01/2022 Dx Diverticulosis FL BREAST REDUCTION 1996 TOTAL ABDOMINAL HYSTERECTOMY 03/19/2017 [...] Date 08/02/24 Time 5:00PM. documented in this encounterResearch Medical Center-Brookside CampusErwybqiipa72-03-4475 History of Present illness Narrative* Lucero Hudson, NORMA - 07/27/2024 8:20 AM EDT Images from [...] Active Problem List Diagnosis Benign essential hypertension ([facility]) Fibromyalgia MICHELLE (iron deficiency anemia) RADHA (obstructive sleep apnea) Renal transplant recipient ([facility]) Type 2 diabetes mellitus with diabetic chronic kidney disease ([facility]) Mixed anxiety and depressive disorder Dyslipidemia ([facility]) Gastroesophageal reflux disease Immunosuppressive management encounter following kidney transplant ([facility]) ADPKD (autosomal dominant polycystic kidney disease) Polyarthritis of multiple sites Anxiety Anemia of renal disease NSTEMI (non-ST elevated myocardial infarction) ([facility]) Polycystic kidney disease Secondary hyperparathyroidism ([facility]) Tonsillolith Stage 4 chronic kidney disease ([facility]) Chronic kidney disease, stage 5 ([facility]) Gout Review of Systems Constitutional: [...] follow-up. Lucero Hudson NP documented in this [facility]10-25-2022 Evaluation note* Encounter Date Diagnosis Assessment Notes [...] M10.9)She has gout and follows with a tank washer. She takes Urolic and denies any recent gout flare Jul,Metabolic acidemia, unspecified (ICD-10 - P19.9)She has metabolic acidosis due to the advanced CKD. Continue oral Sodium Bicarbonate [facility] Other 09-28-2022 Evaluation note* Encounter Date Diagnosis [...] disease, unspecified CKD stage (ICD-10 - N18.9) [facility] Other 09-13-2022 Procedure noteAdena Fayette Medical Center08-29-2022 Evaluation note* Encounter Date Diagnosis Assessment Notes Treatment Notes Treatment Clinical Notes May, Pre-op testing (ICD-10 - Z01.818 ) [facility] Other 08-25-2022 Evaluation note* Encounter Date Diagnosis [...] will schedule this in the near future. [facility] Other 07-28-2022 Evaluation note* Encounter Date Diagnosis [...] 3.6 mg/dL.. I have discussed with h nelia the course and prognosis of disease. I explained to her the potential need of CLOUD ENGAGEMENT PARTNER in future. I discussed with her different options of CLOUD ENGAGEMENT PARTNER including PD, HTN renal transplant. I provide [...] M10.9)She has gout and follows with a tank washer. She takes Urolic and denies any recent gout flare [facility] Other 07-26-2022 Evaluation note* Encounter Date Diagnosis [...] care provider if no improvement of symptoms. [facility] Other 05-24-2022 Evaluation note* Encounter Date Diagnosis Assessment Notes Treatment Notes Treatment Clinical Notes February, Screening for colon cancer (ICD- 10 - Z12.11) [facility] Other 03-03-2022 Evaluation note* Encounter Date Diagnosis [...] explained to her the potential need of CLOUD ENGAGEMENT PARTNER in future. I discussed with her different options of CLOUD ENGAGEMENT PARTNER including PD, HTN renal transplant. I provide [...] She has gout and follows with a tank washer. She takes Urolic and denies any recent gout flare [facility] Other 06-25-2021 NotePatient Outreach (NEPHMN) MANDEEP PURI ([id number]) 1975 F Date Time Provider Department 03/30/21 PERRI BARRETT During your visit today, we recorded the following information about you: Allergies As of Date: 03/30/2021 Noted Allergy Reaction ALLOPURINOL 08/02/2019 4 - Hives Date Reviewed: 03/30/2021 Reviewed by: Perri Barrett MD - Fully Assessed Visit Diagnosis:Screening for genitourinary condition [Z13.89] Order(s):URINALYSIS, DIPSTICK ONLY [SQUA] Order #: [id number]. #:[id number] Prescriptions as of 03/30/2021 Sig: DULOXETINE 60 [...] dominant polycystic kidney dis*03/30/2021 Encounter Status:Closed by Minutta, PRODUSER [facility]/21[facility] 03-30-[facility]21 NoteHNO ID: [id number] Author: Perri Barrett MD Service: ? Author Type: Physician Type: Progress Notes Filed: 03/30/2021 10:25 AM Note Text: Mrs. 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 sirol[facility] (rapamycin) [facility] History general Narrative - Reported * Type Description Date Medical History HTN (hypertension) Medical HistoryAnxietyMedical Historypolycystic kidneysMedical HistoryCOVID [phone] HistoryC sectionSurgical HistoryBREAST REDUCTION Hospitalization Historychild birthHospitalization HistoryKIDNEY QMKFONOJV49/2019 Hospitalization HistoryCOVID AND DEHYDRATION05/29/2020 [facility] 08-12-2020 History general Narrative - Reported* Type Description Date Medical History HTN (hypertension) Medical HistoryAnxietyMedical Historypolycystic kidneysMedical HistoryCOVID [phone] Historyend stage renal diseaseSurgical HistoryC sectionSurgical HistoryBREAST REDUCTIONSurgical Historycolonoscopy04/01/2022urgical History wisdom teeth03/24/2022Hospitalization Historychild birthHospitalization History KIDNEY KZJCYHUXW13/2019Hospitalization HistoryCOVID AND DEHYDRATION05/29/2020 [facility] Other 08-12-2020 History general Narrative - Reported* Type Description Date Medical History HTN (hypertension) Medical HistoryAnxietyMedical Historypolycystic kidneysMedical HistoryCOVID [phone] Historyend stage renal diseaseSurgical HistoryC sectionSurgical HistoryBREAST REDUCTIONSurgical Historycolonoscopy04/01/2022urgical History wisdom teeth03/24/2022urgical HistoryHYSTERECTOMYHospitalization Historychild birthHospitalization HistoryKIDNEY JFDNSWSUF63/2019Hospitalization HistoryCOVID AND DEHYDRATION05/29/2020 [facility] Other 08-12-2020 History general Narrative - Reported* Type Description Date Medical History HTN (hypertension) Medical HistoryAnxietyMedical Historypolycystic kidneysMedical HistoryCOVID 9-25-1006Mieeihg Historyend stage renal diseaseSurgical HistoryC sectionSurgical HistoryBREAST REDUCTIONSurgical Historycolonoscopy04/01/2022urgical History wisdom teeth03/24/2022urgical HistoryHYSTERECTOMYSurgical HistoryLEFT AV FISTULA 06/18/2022Hospitalization Historychild birthHospitalization HistoryKIDNEY RQXPZMRES47/2019Hospitalization HistoryCOVID AND DEHYDRATION05/29/2020 [facility] Other Evaluation noteNo assessment information available [facility] Work Phone: Evaluation noteNo InformationNort [employer] Other Evaluation note* Diagnosis Onset Date Resolution Status Dysuria acuteUTI (urinary tract infection)acute [facility] Work Phone: Evaluation note* Diagnosis [...] NOMS HealthcareEvaluation note* Diagnosis Benign essential hypertension ([facility])- Primary Essential hypertension, benign Renal transplant recipient ([facility]) Immunosuppressive management encounter following kidney transplant ([facility]) Encounter for long-term (current) use of other medications Anemia of renal disease Anemia in chronic kidney disease Iron deficiency anemia, unspecified iron deficiency anemia type Type 2 diabetes mellitus with stage 3a chronic kidney disease, without long-term current use of insulin ([facility]) ([facility]) Dyslipidemia ([facility]) Other and unspecified hyperlipidemia Fibromyalgia Unspecified myalgia and myositis Need for immunization against influenza Need for prophylactic vaccination and inoculation against influenza [facility] Diagnosis Polycystic kidney disease- Primary Congenital polycystic kidney, unspecified type Anemia of renal disease Anemia in chronic kidney disease Immunosuppressive management encounter following kidney transplant ([facility]) Encounter for long-term (current) use of other medications Renal transplant recipient ([facility]) Type 2 diabetes mellitus with stage 3a chronic kidney disease, without long-term current use of insulin (HCC) ([facility]) Dyslipidemia ([facility]) Other and unspecified hyperlipidemia documented [facility] this encounter [facility]* Diagnosis Benign essential hypertension- Primary Essential hypertension, benign ADPKD (autosomal dominant polycystic kidney disease) Congenital polycystic kidney, autosomal dominant Type 2 diabetes mellitus with stage 3a chronic kidney disease, without long-term current use of insulin (HCC) Renal transplant recipient ([facility]) Mixed anxiety and depressive disorder [...] Abdominal pain, generalized Hypokalemia Hypopotassemia Immunosuppressed status ([facility]) Essential hypertension Unspecified essential hypertension Type 2 diabetes mellitus with diabetic nephropathy, without long-term current use of insulin ([facility]) Iron deficiency anemia, unspecified iron deficiency anemia type Gastroesophageal reflux disease without esophagitis Esophageal reflux Fibromyalgia Unspecified myalgia and myositis documented in this encounter [facility] HealthcareReason for referral (narrative)No reason for referral information availableHarrison [facility] Work Phone: Assessments Diagnosis Acute sepsis (HCC)- Primary Acute cystitis without hematuria Acute cystitis Chronic renal failure, stage 4 (severe) (HCC) Polycystic kidney disease Polycystic kidney, unspecified type Advance Directives TypeDate RecordedPatient RepresentativeExplanationAdvance Directives and Living WillPower of Counter Clerk [employer] Advance Directive Response Recorded Date/ Time Advance [...] section and content) DATE CREATED AUTHOR 08/04/2019 [facility] DATE CREATED AUTHOR AUTHOR'S ORGANIZ ATION 04/28/2020 [facility] DATE CREATED AUTHOR AUTHOR'S ORGANIZ ATION 09/12/2020 [facility] DATE CREATED AUTHOR AUTHOR'S ORGANIZ ATION 11/07/2021 [facility] DATE CREATED AUTHOR AUTHOR'S ORGANIZ ATION 02/27/2022 [facility] DATE CREATED AUTHOR AUTHOR'S ORGANIZ ATION 08/04/2022 [facility] DATE CREATED AUTHOR AUTHOR'S ORGANIZ ATION 05/29/2025 [facility] DATE CREATED AUTHOR AUTHOR'S ORGANIZ ATION 06/19/2025 [facility] DATE CREATED AUTHOR AUTHOR'S ORGANIZ ATION 07/29/2025 [facility] Care Teams (unrecognized [...] Status: Inactive Member Role Status Dates Ming Epsinoza DO Primary Care Provider Active Blake Hinojosa DOAttphilip ProviderActive Team Status: Inactive Member Role Status Dates Ming Espinoza DO Primary Care Provider Active Start: November 06, 2023 End: November 06obert Tonya Ceja ProviderActiveStart: November 06, 2023 End: November 06, 2023 Team Status: Inactive Member Role Status Dates Ming Espinoza DO Primary Care Provider Active Start: March 15, 2024 End: March 15Gina Somers ProviderActiveStart: March 15, 2024 End: March 15, 2024 Team Status: Inactive Member Role Status Dates Andreia Edwards APRN Attending Provider Active S tart: March 15, 2024 End: March 15, 2024Team MemberRelationshipSpecialtyStart DateEnd Date Ming Espinoza DO [address] [place] [address] PCP - Medical [employer]10/06/2211 Ming Espinoza DO [address] [place] [address] PCP - GeneralInternal Medicine05/02/23Team MemberRelationshipSpecialtyStart Date End Date Ming Espinoza DO [address] [place] [address] PCP - Medical [employer]10/06/2211 Ming Espinoza DO [address] [place] [address] PCP - [facility]05/02/23Team MemberRelationshipSpecialtyStart Date End Date Ming Espinoza DO [address] [place] [address] PCP - Medical [employer]10/06/2211 Ming Espinoza DO [address] [place] [address] PCP - [facility]05/02/23Team MemberRelationshipSpecialtyStart Date End Date Ming Espinoza DO [address] [place] [address] PCP - Medical [employer]10/06/2211 Ming Espinoza DO [address] [place] [address] PCP - [facility]05/02/23 Team Status: Inactive Member Role Status Dates Ming Espinoza DO Primary Care Provider Active Start: August 02, 2024 End: August 02, 2024Tonya Soto ProviderActiveStart: August 02, 2024 End: August 02, 2024Marek Navas ProviderActiveStart: August 02, 2024 End: August 02, 2024 Team Status: Inactive Member Role Status Dates Blake Hinojosa DO Attending Provider Active Start: August 25, 2024 End: August 25, 2024Olivia Ramos [facility] ProviderActiveStart: August 25, 2024 End: August 25, 2024Team MemberRelationshipSpecialtyStart DateEnd Date Ming Espinoza DO [address] [place] [address] PCP - [facility] [employer] [employer]10/06/2211 Ming Espinoza DO [address] [place] [address] PCP - GeneralInternal Medicine05/02/23Team MemberRelationshipSpecialtyStart Date End Date Ming Espinoza DO [address] [place] [address] PCP - [facility] [employer]10/06/2211 Ming Espinoza DO [address] [place] [address] PCP - GeneralInternal Medicine05/02/23Team MemberRelationshipSpecialtyStart Date End Date Ming Espinoza DO [address] [place] [address] PCP - [facility] [employer]10/06/2211 Ming Espinoza DO [address] [place] [address] PCP - GeneralInternal Medicine05/02/23Team MemberRelationshipSpecialtyStart Date End Date Ming Espinoza DO [address] [place] [address] PCP - [facility] [employer]10/06/2211 Ming Espinoza DO [address] [place] [address] PCP - GeneralInternal Medicine05/02/23Team MemberRelationshipSpecialtyStart Date End Date Ming Espinoza DO [address] [place] [address] PCP - [facility] [employer]10/06/2211 Ming Espinoza DO [address] [place] [address] [facility]05/02/23 Team Status: Inactive Member Role Status Dates Ming Espinoza DO Primary Care Provider Active Start: October 14, 2024 End: October 14, 2024Tonya Kline ProviderActiveStart: October 14, 2024 End: October 14, 2024Team MemberRelationshipSpecialtyStart DateEnd Date Ming Espinoza DO [address] [place] [address] PCP - [facility] [employer] [employer]10/06/2211 Ming Espinoza DO [address] [place] [address] PCP - GeneralInternal Medicine05/02/23Team MemberRelationshipSpecialtyStart Date End Date Ming Espinoza DO [address] [place] [address] PCP - [facility] [employer]10/06/2211 Ming Espinoza DO [address] [place] [address] PCP - GeneralInternal Medicine05/02/23Team MemberRelationshipSpecialtyStart Date End Date Ming Espinoza DO [address] [place] [address] PCP - Medical [employer] [employer]10/06/2211 Ming Espinoza DO [address] [place] [address] [facility]05/02/23 Team Status: Active Member Role Status Dates Perri Wong MD Primary Care Provider Active Team Status: Inactive Member Role Status Dates Perri Wong MD Primary Care Provider Active St art: May 24, 2025 End: May 24, 2025Padakota Stein DOEmergency ProviderActiveStart: May 24, 2025 End: May 24, 2025Team MemberRelationshipSpecialtyStart DateEnd Date Ming Espinoza DO [address] [place] [address] PCP - Medical [employer]10/06/2211 Perri Wong MD [address] [place] [address] [facility] - [facility]05/24/25Team MemberRelationshipSpecialtyStart Date End Date Ming Espinoza DO [address] [place] [address] PCP - Medical [employer]10/06/2211 Perri Wong MD [address] [place] [address] PCP - GeneralInternal Medicine05/24/25Team MemberRelationshipSpecialtyStart Date End Date Ming EspinozaDO [address] [place] [address] PCP - Medical [employer]10/06/2211 Perri Wong MD [address] [place] [address] PCP - [facility]05/24/25 Goals (unrecognized section and content) Goals may [...] BE BASED ON THE PRIMARY CLINICAL RECORDS. [employer] [facility]. provides no warranty or guarantee of the accuracy or completeness of information in this document.
--- OUTSIDE RECORDS SUMMARY | 2025-09-03 08:57 | XMS_ITS | Encounter Summary ---
Author Organization [facility] Address [address] [facility] [place] [place] [address] Care Team Providers Care Pigs Feet Cleaner Name Role Phone Ming Triplett DO Unavailable [phone] Triston Wong MD Primary Care Provider [phone] Encounter Details DateTypeDepartmentCare Team (Latest Contact Info)Yevdnrvpilb12/24/2025External Result Encounter [facility] External Department Unsolicited Provider, Generic External Data Social History Tobacco UseTypesPacks/DayYears UsedDateSmoking Tobacco: NeverSmokeless [...] drinks on one occasion?Never04/19/2024HQ-2AnswerDate RecordedPatient Health Questionnaire-2 [id number] and Gender InformationValueDate Recorded Sex Assigned at NbexbBtryqk53/20/2023 2:02 PM EDTLegal BlwSdmdzf15/15/2023 6:37 PM EDTGender GeammkcsSnhlhc25/20/2023 2:02 PM EDTSexual OrientationStraight 10/08/2023 9:32 AM ESTOccupationIndustryJob Start DateJob End DateUnemployedNot on fileNot on fileNot on filedocumented as of this encounter Plan of Treatment DateTypeDepartmentCare Team (Latest Contact Info)Qpmixvyiodc99/12/2026 8:30 AM ESTOffice Visit [facility] [address] [place] [phone] documented as of this encounter Procedures Procedure NamePriorityDate/TimeAssociated DiagnosisCommentsBI MAMMOGRAM SCREENING TOMOSYNTHESIS MFKFAMALO25/24/2025 8:50 AM EST documented in this encounter Results [...] Location: S01 ? Dictated By: ?Evan Messina Jr, DO ? 08/29/25 0850 ? Signed By: <Electronically signed by Evan Messina Jr, DO in OV> ?08/29/25 0851 Narrative 08/29/2025 8:53 AM EST ?[facility] ? [address] ? [place] [address] ?[phone] ? Mammography Report ? Signed ? Patient: Khushi,Patsy L ?MR#: [id number] ?? 15 ? : 1975 ?Acct:[id number] ? Age/Sex: 49 / F ?Adm Date: 08/27/ ? Loc: [place] ?Room: ?Type: DEP CLI ?? Attending Dr: Referral Self ? Ordering Provider: SELF,REFERRAL ? Date of Service: 08/27/25 ? Procedure(s): MM screening mammo BI w/CAD ?? Accession Number(s): ([id number]) MM/MM screening mammo BI w/CAD: ROUTINE ? Copies to: Triston Wong MD ?? SELF,REFERRAL ?? Blake Hinojosa DO ? CLINICAL DATA: ??Screening for malignancy. ? [...] Note Evan Messina Jr., DO - 08/29/2025 [facility] [address] [place] [address] Mammography Report Signed Patient: Patsy Puri LMR#: [id number] 15 : 1975Acct:[id number] Age/Sex: 49 / FAdm Date: 08/27/25 Loc: [place] Room:Type: [facility] Attending Dr: Referral Self Ordering Provider: SELF,REFERRAL Date of Service: 08/27/25 Procedure(s): MM screening mammo BI w/CAD Accession Number(s): ([id number]) MM/MM screening mammo BI w/CAD: ROUTINE Copies [...] Jr., D.O. 08/29/2025 8:51 AM Dictation Location: [facility] Dictated By: Evan Messina Jr, DO 08/29/25 0850 Signed By: <Electronically signed by Evan Messina Jr, DO inOV> 08/29/25 0851 Authorizing ProviderResult TypeResult StatusGeneric External Data ProviderIMG BI PROCEDURESFinal Result documented in this encounter Visit Diagnoses Not on filedocumented in this encounter Care Teams Team MemberRelationshipSpecialtyStart DateEnd Date Ming Triplett DO [address] [place] [address] PCP - Medical [employer] [employer]10/06/2211 Triston Wong MD [address] [place] [address] PCP - GeneralInternal Medicine05/24/25documented as of this encounter
[2025-09-03 09:23] LABS: Hematocrit 40.1 % (36.0-48.0); Hemoglobin 13.5 g/dL (12.0-16.0); Immature Granulocytes Abs Auto 0.07 10^3/uL (0.00-0.03); Immature Granulocytes Pct Auto 0.8 % (0.0-0.5); Lymphocytes Absolute Auto 1.4 10^3/uL (1.2-3.8); Mean Corpuscular HGB Conc 33.7 g/dL (29.9-35.2); Mean Corpuscular Hemoglobin 29.6 pg (26.7-34.0); Mean Corpuscular Volume 87.9 fL (81.0-99.0); Platelet Count 315 10^3/uL (150-450); Red Blood Count 4.56 10^6/uL (4.20-5.40); White Blood Count 8.7 10^3/uL (4.0-11.0)
[2025-09-03 09:41] LABS: Alanine Aminotransferase 22 U/L (14-59); Albumin Globulin Ratio 0.9; Albumin Level 3.7 g/dL (3.4-5.0); Alkaline Phosphatase 82 U/L (46-116); Anion Gap 11.6; Aspartate Amino Transferase 13 U/L (15-37); Blood Urea Nitrogen 14.0 mg/dL (7.0-18.0); Calcium 9.6 mg/dL (8.5-10.1); Carbon Dioxide 26.5 mmol/L (21.0-32.0); Chloride 103 mmol/L (98-107); Estimated GFR (African America >60 (>=60 mL/min/1.73m^2); Estimated GFR (Non-African Ame 51 (>=60 mL/min/1.73m^2); Globulin 3.9 g/dL; Glucose 110 mg/dL (74-106); Magnesium 1.6 mg/dL (1.8-2.4); Potassium 3.1 mmol/L (3.5-5.1); Sodium 138 mmol/L (136-145); Total Protein 7.6 g/dL (6.4-8.2); Uric Acid 4.1 mg/dL (2.6-6.0)
== END 2025-09-03 08:53 | disposition home or self-care (01) ==
PROVIDERS: PCP Internal Medicine; Visit Provider Nurse Practitioner Family
DX: Z94.0 Kidney transplant status (principal)
CPT/HCPCS: 36415; 80053; 80197; 82248; 83735; 84100; 84550; 85025

== ENCOUNTER 2025-10-04 07:17 | Outpatient (OUT) | payer OTHER, SELFPAY ==
--- OUTSIDE RECORDS SUMMARY | 2025-10-04 07:21 | XMS_ITS | Clinical Summary ---
Author Organization [facility] Address [address] [facility] [place] [address] Care Team Providers Care Ophthalmic Medical Technician Name Role Phone Ming Triplett DO Unavailable [phone] Triston Wong MD Primary Care Provider [phone] Allergies Active AllergyReactionsCriticalityNoted CexnLmumrgobYjvzbvzhmfiHzzsLbf92/15/2023 Fjxnkemsmxk87/10/2024 Other Reaction(s): Rash, hives Venlafaxine Hcl02/17/2023 Other [...] IN THE MORNING AND 2 TABLETS AT RWQFGGQ7906/22/2024ctive DULoxetine (Cymbalta) [address] capsule Take [...] diabetic nephropathy, without long-term current use of horhrqq2105/27/2025History of gout 05/27/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 involving multiple yehgnk8105/27/2025Pure ihxdeimwjquyxghyesfu97/22/2025Moderate major /22/2025GAD (generalized anxiety disorder)05/27/2025Stage 3a chronic kidney disease (CKD) 10/01/2024Secondary kudwunlfwkouocxagiw98/12/2024Essential hypertension 03/04/20239703Meaoytxluzur37/30/2023IDA (iron deficiency anemia)03/04/2023Renal transplant wsjriwnar74/30/2023astroesophageal reflux disease without ikwyjdvujls29/26/2022DPKD (autosomal dominant polycystic kidney disease) 03/30/2021 Resolved Problems ProblemNoted DateDiagnosed DateResolved DateNSTEMI (non-ST elevated myocardial infarction)/hronic kidney disease, stage 5004/16/2024 10/01/2024HTN (hypertension)/05/20239014Rydrurbcdqilr08/30/2023 03/13/2023IFG (impaired fasting glucose)/05/2023OSA (obstructive sleep apnea)/KD (chronic kidney disease) stage 4, GFR 15-29 ml/min/outy lmgfwnrsi60/05/2023Stage 4 chronic kidney ftrhqli52/ Encounters DateTypeDepartmentCare GhmaFrzptowvggw30/29/2025linisync Result Encounter [facility] External [facility] Unsolicited Provider, Generic External Data 08/29/2025External Result Encounter [facility] External Department Unsolicited Provider, Generic External Data 08/03/2025linisync Result Encounter [facility] External Department Unsolicited Provider, Generic External Data 07/27/2025Refill [facility] [address] [place] [address] Ming Triplett, DO Type 2 diabetes mellitus with stage 3a chronic kidney disease, without long-term current use of insulin ([facility])07/05/2025linisync Result Encounter [facility] External Department Unsolicited Provider, Generic External Data 07/05/2025Refill [facility] [address] [place] [address] Ming Triplett, DO Essential hypertensionfrom Last 3 Months Immunizations ImmunizationAdministration DatesNext DueInfluenza, High Dose Seasonal, Preservative Free05/29/2020Influenza, Injectable, MDCK, preservative free 08/11/2019Influenza, Madin Sarah Canine Kidney, subunit, trivalent, injectable, contains wwpzaujajlty88/27/2024Influenza, injectable, MDCK, preservative free, hpclkntiywjn47/21/2024Influenza, seasonal, intradermal, preservative free 07/22/2014Pneumococcal Polysaccharide [id number] Family History Medical HistoryRelationNameCommentsNo Known ProblemsBrotherHeart diseaseFather [...] 04/11/2025CommentsNoSex and Gender InformationValueDate RecordedSex Assigned at OuqvqGlteqa10/20/2023 2:02 PM EDTLegal FwxQttwbt46/15/2023 6:37 PM EDTGender NubuutxtPjurxy92/20/2023 2:02 PM EDTSexual OrientationStraight 10/08/2023 9:32 AM ESTOccupationIndustryJob Start DateJob End DateUnemployedNot on fileNot on fileNot on file Last Filed Vital Signs Vital SignReadingTime TakenCommentsBlood Rwhpxsjg354/8008 2:23 PM EDT Xgtrf108505/27/2025 2:23 PM DDHFptbgjxzstr02.6 ??C (97.8 ??F)07/27/2024 8:34 AM EDTRespiratory Rate--Oxygen Tozbxfjzpz03%05/27/2025 2:23 PM EDTInhaled Oxygen Concentration--Tojdzj81.5 kg (184 lb)05/27/2025 2:23 PM UTLCqqrbv637.9 cm (5' 1 )05/27/2025 2:23 PM EDTBody Mass Index34.77005/27/2025 2:23 PM EDT Plan of Treatment DateTypeDepartmentCare Team (Latest Contact Info)Vmqundhetuz54/12/2026 8:30 AM ESTOffice Visit [facility] [address] [place] [address] Health MaintenanceDue DateLast DoneCommentsCT Ciebffwmorea52/15/1976FIT-DNA 1975FIT1975FOBT1975 7857Qwesefbexrqzq38/15/1976Diabetes: Retinopathy Nregkjadv37/15/1986Pneumococcal Vaccine: Pediatrics (0 to 5 Years) and At-Risk Patients (6 to 64 Years) (2 of 2 - PCV)/Diabetes: Urine Protein Xvqdmzpyp40, 04/27/2022, 04/27/2022, Additional history existsDiabetes: Hemoglobin A1C/, 04/23/2024, 04/23/2024, Additional history existsInfluenza Vaccine (#1)/, 10/26/2023, 05/29/2020, Additional history vhlvytCqpflctdl54, 08/25/2024, 07/31/2023, Additional history lesnamSbhpaeowsts40 Colorectal Cancer Nxyvqryae49/27/2032Cervical Cancer ScreeningDiscontinued HPV/SfhbedSdqnjncraiuo38/15/2024ap SmearDiscontinued Procedures Procedure NamePriorityDate/TimeAssociated DiagnosisCommentsTACROLIMUS (FK506), UNFNAGcugzbj19/29/2025 9:06 AM EST METRO BILIRUBIN, IJSJOQOdycduo60/29/2025 9:06 AM EST ALL BDALNRKSQVhlgenf59/29/2025 9:06 AM EST ALL OXYORYFDJKTDuengfa42/29/2025 9:06 AM EST ALL URIC GBSLStvnfis49/29/2025 9:06 AM EST [facility] CMP (CMP) (FOR REMOTE [facility] USE)Zhxdxvg9009/03/2025 9:06 AM EST ALL CBC WITH AUTO ZMRWTtxzaoz82/29/2025 9:06 AM EST BI MAMMOGRAM SCREENING TOMOSYNTHESIS QQGIUHUNC38/24/2025 8:50 AM EST TACROLIMUS (FK506), LMPBPNooaccx82/ 7:15 AM EDT METRO BILIRUBIN, VVYDLIWdbbyfw41/29/2025 7:15 AM EDT ALL GXOFMRGUUEafmlai72/29/2025 7:15 AM EDT ALL ZDODFKTMUAYZhcpnki69/29/2025 7:15 AM EDT ALL URIC RMHTVclepik81/29/2025 7:15 AM EDT CCF CMP (CMP) (FOR REMOTE [facility] USE)Pwqqapq3008/03/2025 7:15 AM EDT ALL CBC WITH AUTO VXONKyrnvmw98/29/2025 7:15 AM EDT TACROLIMUS (FK506), IEWVVFbkemew89/30/2025 7:25 AM EDT BKV QUANT ASMGxakxyq01/30/2025 7:25 AM EDT ALL LIPID PROFILE (FASTING)Nxonvnp6807/05/2025 7:25 AM EDT METRO BILIRUBIN, GKPAOKVoydljd71/30/2025 7:25 AM EDT ALL TNMTIRNYEJbdvjwc85/30/2025 7:25 AM EDT ALL RNQDRKRKVIPJsngqhs21/30/2025 7:25 AM EDT ALL URIC BEFHEerjngi95/30/2025 7:25 AM EDT CCF CMP (CMP) (FOR REMOTE [facility] USE)Yotljxv1607/05/2025 7:25 AM EDT MLR HEMOGLOBIN D2BRttpttf64/30/2025 7:25 AM EDT ALL CBC WITH AUTO LEUVVmgljyf73/30/2025 7:25 AM EDT THINPREP IMAGING PAP W/REFL HPV MRNA E6/L1Xtlkezu93/15/2024 12:00 AM EDT Encounter for Papanicolaou smear of vagina POCT GLYCOSYLATED HEMOGLOBIN (HGB A1C)Jqljjcc3606/10/2023 4:14 PM EDT Type 2 diabetes mellitus with stage 3a chronic kidney disease, without long-term current use of insulin (HCC) URINE T PROTEIN CREAT JJDGENioudno06/24/2022 YBAFMKDQWVHWaeuanw12/27/2022 12:00 PM EDT from Last 3 Months or Most Recently Relevant to Health Maintenance Results * (ABNORMAL) TACROLIMUS (FK506), BLOOD (09/03/2025 9:06 AM EST) Only the most recent of3 resultswithin the time period is included. ComponentValueRef RangeTest MethodAnalysis TimePerformed AtPathologist Signature TACROLIMUS (FK506), BLOOD3.9(A)5.0 - 20.0 ng/mLTBHComment: This test was developed and its performance characteristics determined by [employer]. It has not been cleared or approved [...] by LC-MS/MS technology. Performed at: ?? - [facility] ??[id number] Medical Asst: Jose De Los Santos MD, Phone: ??[phone] Specimen (Source)Anatomical Location / LateralityCollection Method / Volume Collection TimeReceived Time09/03/2025 9:06 AM EST09/03/2025 9:07 AM EST Narrative CLINISYNC - 09/06/2025 12:07 AM EST Authorizing ProviderResult TypeResult StatusGeneric External Data ProviderLAB BLOOD ORDERABLESFinal ResultPerforming OrganizationAddressCity/State/ZIP Code Phone Number [facility] * METRO BILIRUBIN, DIRECT (09/03/2025 9:06 AM EST) Only the most recent of3 resultswithin the time period is included. ComponentValueRef RangeTest MethodAnalysis TimePerformed AtPathologist Signature BILIRUBIN DIRECT0.10.0 - 0.2 mg/dLTBHSpecimen (Source)Anatomical Location / LateralityCollection Method / VolumeCollection TimeReceived Time09/03/2025 9:06 AM EST09/03/2025 9:07 AM EST Narrative CLINISYNC - 09/03/2025 9:54 AM EST Authorizing ProviderResult TypeResult StatusGeneric External Data Provider CLINISYNCFinal ResultPerforming OrganizationAddressCity/State/ZIP CodePhone Number [facility] * (ABNORMAL) CCF CMP (CMP) (FOR REMOTE [facility] USE) (09/03/2025 9:06 AM EST) Only the most recent of3 resultswithin the time period is included. ComponentValueRef RangeTest MethodAnalysis TimePerformed AtPathologist Signature LBRNQU835659 - 145 mmol/LTBHPOTASSIUM3.1(L)3.5 - 5.1 mmol/QOILPKIPMQLR06614 - 107 mmol/LTBHCARBON TGXJNXR71.521.0 - 32.0 mmol/LTBHANION GAP11.7EEQJICEEWD906 (H)74 - 106 mg/dLTBHBLOOD UREA BSQIUPQK79.07.0 - 18.0 mg/dLTBHCREATININE1.13(H) 0.55 - 1.02 mg/dLTBHTBH EGFR-AF FILIPINO>60>=60 mL/min/1.73m 2TBHTBH EGFR-NON AF CSKQDPZI71(L)>=60 mL/min/1.73m 2TBHBUN CREATININE RATIO12.1PAYBCIDYWT4.68.5 - 10.1 mg/dLTBHBILIRUBIN TOTAL0.40.2 - 1.0 mg/dLTBHASPARTATE AMINO IVQWTASBXLV04 (L)15 - 37 U/LTBHALANINE XBKEYPBMZAWHNQXL7777 - 59 U/LTBHALKALINE IQGFCUOHPYY94 46 - 116 U/LTBHTOTAL PROTEIN7.66.4 - 8.2 g/dLTBHALBUMIN LEVEL3.73.4 - 5.0 g/dL TBHGLOBULIN3.9g/dLTBHALBUMIN GLOBULIN RATIO0.9TBHSpecimen (Source)Anatomical Location / LateralityCollection Method / VolumeCollection TimeReceived Time 09/03/2025 9:06 AM EST09/03/2025 9:07 AM EST Narrative CLINISYNC - 09/03/2025 9:54 AM EST Authorizing ProviderResult TypeResult StatusGeneric External Data Provider CLINISYNCFinal ResultPerforming OrganizationAddressCity/State/ZIP CodePhone Number CLINISYNC TB * ALL URIC ACID (09/03/2025 9:06 AM EST) Only the most recent of3 resultswithin the time period is included. ComponentValueRef RangeTest MethodAnalysis TimePerformed AtPathologist Signature URIC ACID4.12.6 - 6.0 mg/dLTBHSpecimen (Source)Anatomical Location / Laterality Collection Method / VolumeCollection TimeReceived Time09/03/2025 9:06 AM EST 09/03/2025 9:07 AM EST Narrative CLINISYNC - 09/03/2025 9:54 AM EST Authorizing ProviderResult TypeResult StatusGeneric External Data Provider CLINISYNCFinal ResultPerforming OrganizationAddSelect Specialty Hospital - McKeesportty/State/ZIP CodePhone Number CLINISYNC TB * ALL PHOSPHOROUS (09/03/2025 9:06 AM EST) Only the most recent of3 resultswithin the time period is included. ComponentValueRef RangeTest MethodAnalysis TimePerformed AtPathologist Signature PHOSPHORUS3.82.6 - 4.7 mg/dLTBHSpecimen (Source)Anatomical Location / Laterality Collection Method / VolumeCollection TimeReceived Time09/03/2025 9:06 AM EST 09/03/2025 9:07 AM EST Narrative CLINISYNC - 09/03/2025 9:54 AM EST Authorizing ProviderResult TypeResult StatusGeneric External Data Provider CLINISYNCFinal ResultPerforming OrganizationAddSelect Specialty Hospital - McKeesportty/State/ZIP CodePhone Number CLINISYNC TB * (ABNORMAL) ALL MAGNESIUM (09/03/2025 9:06 AM EST) Only the most recent of3 resultswithin the time period is included. ComponentValueRef RangeTest MethodAnalysis TimePerformed AtPathologist Signature MAGNESIUM1.6(L)1.8 - 2.4 mg/dLTBHSpecimen (Source)Anatomical Location / LateralityCollection Method / VolumeCollection TimeReceived Time09/03/2025 9:06 AM EST09/03/2025 9:07 AM EST Narrative CLINISYNC - 09/03/2025 9:54 AM EST Authorizing ProviderResult TypeResult StatusGeneric External Data Provider CLINISYNCFinal ResultPerforming OrganizationAddressCity/State/ZIP CodePhone Number CLINISYNC [facility] * (ABNORMAL) ALL CBC WITH AUTO DIFF (09/03/2025 9:06 AM EST) Only the most recent of3 resultswithin the time period is included. ComponentValueRef RangeTest MethodAnalysis TimePerformed AtPathologist Signature TBH WBC8.74.0 - 11.0 10 3/uLTBHTBH RBC4.564.20 - 5.40 10 6/uLTBHTBH HGB13.512.0 - 16.0 g/dLTBHTBH HCT40.136.0 - 48.0 %TBHTBH MCV87.981.0 - 99.0 fLTBHTBH MCH29.6 26.7 - 34.0 pgTBHTBH MCHC33.729.9 - 35.2 g/dLTBHTBH RDW14.111.0 - 15.0 %TBHTBH KXZ158319 - 450 10 3/uLTBHTBH MPV8.7(L)9.5 - 13.5 fLTBHNEUTROPHILS PERCENT AUTO 74.443.0 - 75.0 %TBHLYMPHOCYTES PERCENT AUTO16.3(L)20.5 - 60.0 %TBHMONOCYTES PERCENT AUTO5.41.7 - 12.0 %TBHTBH EO %2.60.9 - 7.0 %TBHBASOPHILS PERCENT AUTO0.5 0.2 - 2.0 %TBHIMMATURE GRANULOCYTES PCT AUTO0.8(H)0.0 - 0.5 %TBHNEUTROPHILS ABSOLUTE AUTO6.51.4 - 6.5 10 3/uLTBHLYMPHOCYTES ABSOLUTE AUTO1.41.2 - 3.8 10 3/uLTBHMONOCYTES ABSOLUTE AUTO0.50.3 - 0.8 10 3/uLTBHTBH EO #0.20.0 - 0.7 10 3/uLTBHBASOPHILS ABSOLUTE AUTO0.00.0 - 0.1 10 3/uLTBHIMMATURE GRANULOCYTES ABS AUTO0.07(H)0.00 - 0.03 10 3/uLTBHSpecimen (Source)Anatomical Location / LateralityCollection Method / VolumeCollection TimeReceived Time09/03/2025 9:06 AM EST09/03/2025 9:07 AM EST Narrative CLINISYNC - 09/03/2025 9:24 AM EST Authorizing ProviderResult TypeResult StatusGeneric External Data Provider CLINISYNCFinal ResultPerforming OrganizationAddressCity/State/ZIP CodePhone Number [facility] * Bilateral screening mammogram with tomosynthesis (08/29/2025 [...] ? Impression dictated by: Evan Messina Jr., D.O. ??08/29/2025 8:51 AM ? Dictation Location: S01 ? Dictated By: ?Evan Messina Jr, DO ? 08/29/25 0850 ? Signed By: <Electronically signed by Evan Messina Jr, DO in OV> ?08/29/25 0851 Narrative 08/29/2025 8:53 AM EST ?[facility] ? [address] ? [place] [address] ?[phone] ? Mammography Report ? Signed ? Patient: Khushi,Patsy L ?MR#: [id number] ?? 15 ? : 1975 ?Acct:[id number] ? Age/Sex: 49 / F ?Adm Date: 08/27/ ? Loc: [place] ?Room: ?Type: DEP CLI ?? Attending Dr: Referral Self ? Ordering Provider: SELF,REFERRAL ? Date of Service: 08/27/ ? Procedure(s): MM screening mammo BI w/CAD ?? Accession Number(s): ([id number]) MM/MM screening mammo BI w/CAD: ROUTINE ? [...] Note Evan Messina Jr., DO - 08/29/2025 [facility] [address] [place] [address] Mammography Report Signed Patient: Patsy Prui LMR#: [id number] 15 : 1975Acct:[id number] Age/Sex: 49 / FAdm Date: 08/27/25 Loc: [place] Room:Type: [facility] Attending Dr: Referral Self Ordering Provider: SELF,REFERRAL Date of Service: 08/27/25 Procedure(s): MM screening mammo BI w/CAD Accession Number(s): ([id number]) MM/MM screening mammo BI w/CAD: ROUTINE Copies [...] Jr., D.O. 08/29/2025 8:51 AM Dictation Location: [facility] Dictated By: Evan Messina Jr, DO 08/29/25 0850 Signed By: <Electronically signed by Evan Messina Jr, DO inOV> 08/29/25 0851 Authorizing ProviderResult TypeResult StatusGeneric External Data ProviderIMG BI PROCEDURESFinal Result * BKV QUANT PCR (07/05/2025 7:25 AM EDT)ComponentValueRef RangeTest Method Analysis TimePerformed AtPathologist SignatureBKV DNA, QUANT PCR, PLASMA NegativeNegative IU/mLTBHComment: No BK DNA detected. The linear range of the assay is 22 - 100,000,000 IU/mL. Performed at: ?? - [facility] ??[id number] Medical Asst: Gabriel Whitman PhD, Phone: ??[phone] LOG10 BKV DNA,PLASMATNP.TBHSpecimen (Source)Anatomical Location / Laterality Collection Method / VolumeCollection TimeReceived Time07/05/2025 7:25 AM EDT 07/05/2025 7:38 AM EDT Narrative CLINISYNC - 07/06/2025 3:08 PM EDT Authorizing ProviderResult TypeResult StatusGeneric External Data ProviderLAB BLOOD ORDERABLESFinal ResultPerforming OrganizationAddressCity/State/ZIP Code Phone Number [facility] * MLR HEMOGLOBIN A1C (07/05/2025 7:25 AM EDT)ComponentValueRef RangeTest Method Analysis TimePerformed AtPathologist SignatureGLYCOHEMOGLOBIN A1C5.24.5 - 6.2 %TBHComment: ADA RECOMMENDED LIMIT 4.0 - 6.0 ADA THERAPEUTIC TARGET < 7.0 ACTION SUGGESTED > 7.0 ESTIMATED AVERAGE XHRWGHO729sy/dLTBHSpecimen (Source)Anatomical Location / LateralityCollection Method / VolumeCollection TimeReceived Time07/05/2025 7:25 AM EDT07/05/2025 7:38 AM EDT Narrative CLINISYWA - 07/05/2025 8:05 AM EDT Authorizing ProviderResult TypeResult StatusGeneric External Data Provider CLINISYNCFinal ResultPerforming OrganizationAddressty/State/[facility] CodePhone Number [facility] * (ABNORMAL) ALL LIPID PROFILE (FASTING) (07/05/2025 7:25 AM EDT)ComponentValue Ref RangeTest MethodAnalysis TimePerformed AtPathologist Signature XORCCVNOCIIVI030(H)<=150 mg/qALSSJROUQUPSYSD170(H)<=200 mg/dLTBHHDL LFYSTVFAXGV8694 - 60 mg/dLTBHComment: > or =60 mg/dl - LOW CARDIOVASCULAR RISK <40 mg/dl - HIGH CARDIOVASCULAR RISK LDL CHOLESTEROL RTGJPAGVNM776.0mg/dLTBHComment: <100 mg/dl OPTIMAL 100-129 mg/dl NEAR OR ABOVE OPTIMAL 130-159 mg/dl BORDERLINE HIGH 160-189 mg/dl HIGH >190 mg/dl VERY HIGH VLDL THLHLELLIZB12.0mg/dLTBHCHOL HDL RATIO3.9TBHComment: 3.3 - 4.4 ?? LOW RISK 4.4 - 7.1 ?? AVERAGE RISK 7.1 - 11.0 ??MODERATE RISK >11.0 HIGH RISK Specimen (Source)Anatomical Location / LateralityCollection Method / Volume Collection TimeReceived Time07/05/2025 7:25 AM EDT07/05/2025 7:38 AM EDT Narrative CLINISYNC - 07/05/2025 8:48 AM EDT Authorizing ProviderResult TypeResult StatusGeneric External Data Provider CLINISYNCFinal ResultPerforming OrganizationAddressCity/State/ZIP CodePhone Number CLINIS[facility]NC [facility] * THINPREP IMAGING PAP W/REFL HPV MRNA E6/E7 (04/19/2024 12:00 AM EDT)Component ValueRef RangeTest MethodAnalysis TimePerformed AtPathologist Signature CLINICAL INFORMATIONQUESTComment:None givenLMPQUESTComment:BAM BS 2017PREV. PAPQUESTComment:NEGPREV. BXQUESTComment:None givenSOURCEQUESTComment:None givenSTATEMENT OF ADEQUACYQUESTComment:SATISFACTORY FOR EVALUATION INTERPRETATION/RESULTQUESTComment: Cytology Results: Negative for intraepithelial lesion or malignancy. COMMENTQUESTComment: This Pap test has been evaluated with computer assisted technology. CYTOTECHNOLOGISTQUESTComment: Reference Range: ZL, CT(ASCP) CT screening location: [facility] [place] [address]. (ALWAYS MESSAGE)QUESTComment: EXPLANATORY NOTE: The Pap is [...] / Volume Collection TimeReceived TimeSwabVaginal structure / Wjzjbfs54/ 3:47 AM EDT Narrative Resulting Agency Comment Performing Organization Information ?Site ID: [id number] ?Name: [facility] ?Address: [address] [place] [phone] ?Director: Bran Flowers MD Authorizing ProviderResult TypeResult StatusBlake HUSAIN CYTOLOGY ORDERABLESFinal ResultPerforming OrganizationAddressCity/State/ZIP CodePhone Number [facility] * (ABNORMAL) POCT glycosylated hemoglobin (Hb A1C) docked device (06/10/2023 4:14 PM EDT)ComponentValueRef RangeTest MethodAnalysis TimePerformed At Pathologist SignatureHemoglobin A1C6.9Specimen (Source)Anatomical Location / LateralityCollection Method / VolumeCollection TimeReceived TimeBloodVenous blood specimen / Mmfeoog85/02/2023 4:14 PM EDT Narrative Authorizing ProviderResult TypeResult StatusMing Triplett DOPOINT OF CARE TEST ENTER/EDIT ORDERABLESEdited Result - Final * (ABNORMAL) URINE T PROTEIN CREAT RATIO (07/29/2022)ComponentValueRef RangeTest MethodAnalysis TimePerformed AtPathologist SignaturePROTEIN, URINE29.7(HH) <=12.0[facility]URINE CREAT53.3520.00 - 300.00[facility] LABUR PROT CREAT RAT0.56[facility] LABPERFORMING LAB:see noteNOMS LEGACY EXTERNAL LABComment:[address] [facility] - [address] [place] [address] ,Ext. [phone] specimen (Source)Anatomical Location / LateralityCollection Method / VolumeCollection TimeReceived Time07/29/2022 Narrative Authorizing ProviderResult TypeResult StatusMing Triplett DOECW LABSFinal ResultPerforming OrganizationAddressCity/State/ZIP CodePhone Number [facility] * Colonoscopy (04/01/2022 12:00 PM EDT)Anatomical RegionLateralityModality EndoscopySpecimen (Source)Anatomical Location / LateralityCollection Method / VolumeCollection TimeReceived Time04/01/2022 12:00 PM EDT Narrative 04/01/2022 12:00 PM EDT PERFORMED AT [facility] LOCATION:[id number] diverticulosis Procedure Note CONVERSION, GENERIC - 02/19/2023 PERFORMED AT [facility] LOCATION:[id number] diverticulosis Authorizing ProviderResult TypeResult StatusMing Triplett DOENDOSCOPY PROCEDURE ORDERABLESFinal Result from Last 3 Months or Most Recently Relevant to Health Maintenance Insurance Care Teams Team MemberRelationshipSpecialtyStart DateEnd Date Ming Triplett DO [address] [place] [address] PCP - Medical [employer]10/06/2211 Triston Wong MD [address] [place] [address] PCP - GeneralInternal Medicine05/24/25
--- OUTSIDE RECORDS SUMMARY | 2025-10-04 07:21 | XMS_ITS | Clinical Summary ---
Author Organization [facility] Address [address] [place] [address], [address] [place] [address] Care Team Providers Care Staff Midwife Name Role Phone Ming Triplett Kary NAVA Primary Care Provider + [phone] Allergies Active AllergyReactionsCriticalityNoted ApetTumhgwnuVqpipxaudiz23/28/2019 Medications MedicationSigDispense QuantityRefillsLast FilledStart DateEnd DateStatus LISINOPRIL PO Take by mouthActive DULoxetine HCl (CYMBALTA PO) Take by mouthActive Social History Tobacco UseTypesPacks/DayYears UsedDateSmoking Tobacco: Never Assessed CommentsUnknownSex and Gender InformationValueDate RecordedSex Assigned at Not on fileLegal LpsKogawd80/10/2013 3:34 PM ESTGender IdentityNot on fileSexual OrientationNot on file Last Filed Vital Signs Vital SignReadingTime TakenCommentsBlood Hfhpkkcy17/5610 4:16 PM EDT Pfjkn91113/28/2019 4:27 PM [address]TDkqgabjwejg54.4 ??C (99.3 ??F)08/02/2019 4:35 PM EDTRespiratory Zetj1640 4:27 PM EDTOxygen Sgwrpuemds79%08/02/2019 4:27 PM EDTInhaled Oxygen Concentration--Vmrqqw93.7 kg (200 lb)08/02/2019 2:59 PM EDT Stdswt391.9 cm (5' 1 )08/02/2019 2:59 PM EDTBody Mass Index37.7908/02/2019 2:59 PM EDT Plan of Treatment Not on file Insurance [address] [place] [address] Care Teams Team MemberRelationshipSpecialtyStart DateEnd Date Ming Triplett DO [address] [place] [address] PCP - GeneralInternal Pitsjroy21/28/19
--- OUTSIDE RECORDS SUMMARY | 2025-10-04 07:21 | XMS_ITS | Clinical Summary ---
Author Organization [facility] Address [address] [place] [address] Care Team Providers Care Mainframe Software Developer Name Role Phone Sita Camp Unavailable Ming Triplett MD Primary Care Provider [phone] Patrick Sam MD Unavailable Nelson Davies MD Unavailable Romero Zamarripa CNP Unavailable [phone] Allergies Active AllergyReactionsCriticalityNoted PfwyWkujukiyZwwxhqaqnue79/26/2022 CjqxiosinxpQqjlf21/15/2022Venlafaxine Hcl07/10/2021 Other reaction(s): bad side effect Medications [...] TO 4.5 MG PER DAY. 90 tablet 3Active Additional Information Patient taking differently: 1.5 mg [...] Do not crush or chew. 180 tablet 305//6Active magnesium oxide (Mag-Ox) 400 mg (241.3 mg magnesium) tablet Indications:History of kidney transplantTake 2 tablets (800 mg) by mouth two times daily. 360 tablet 5Active pravastatin (Pravachol) 40 mg tablet Indications:Encounter for aftercare following kidney transplantTAKE 1 TABLET BY MOUTH EVERYDAY AT BEDTIME 90 tablet 3095Active aMILoride (Midamor) 5 mg tablet Indications:Hypokalemia,Kidney replaced by transplantTake 2 tablets (10 mg) by mouth in the morning. 60 tablet 6Active aMILoride (Midamor) 5 mg tablet Indications:Hypokalemia,Kidney replaced by transplantTake 1 tablet (5 mg) by mouth in the morning. 30 tablet Discontinued(Reorder) Active Problems ProblemNoted DateDiagnosed WlioArdwxuewdtlrv12/10/2022 Myopathy, unspecified 6545Cilldepknoib67/22/2023Electrolyte zqmhjrbuo59/26/2023History of gout 12/01/2022Immunosuppressive management encounter following kidney transplant 6835Acagjvy51/18/2607Ephwxqtdqlaero62/18/2023Immunosuppressed status 10/01/20220895Gxozfhchqdsvh91/27/2022Metabolic /27/2022ilateral lower extremity edema10/01/20224527Qinrapvkkla92/27/2022Encounter for aftercare following kidney dzbwnhzpco90/16/5444Aieqaih15/26/2022epressive ehmcofgq93/26/2022 Gastroesophageal reflux mfivuuy6307/01/2022Gout07/01/2022rimary hypertension 07/01/2022Multiple congenital cysts of kdvcsa7407/01/2022tage 4 chronic kidney bleliud2007/01/2022OVID-19005/17/2020 Encounters DateTypeDepartmentCare RcoqYkpxtqfocvn52/11/2025Orders Only [facility] Transplant [address] [place] [address] Paulina Walsh RN Kidney replaced by transplant (Primary Dx); Fvmkowypeqn79/30/2025Refill [facility] Transplant [address] [place] [phone] Priyanka Villanueva MD Encounter for aftercare following kidney transplantfrom Last 3 Months Family History Medical HistoryRelationNameCommentsHypertensionBrotherPolycystic kidney disease BrotherHeart diseaseFatherFibromyalgiaMotherHypertensionSisterPolycystic kidney diseaseSisterRelationNameStatusCommentsBrotherFatherDeceasedMotherAliveSister Social History Tobacco UseTypesPacks/DayYears UsedDateSmoking Tobacco: NeverPassive Smoke Exposure: NeverSmokeless Tobacco: Never Tobacco Cessation:Counseling Given: Not Answered Alcohol UseStandard Drinks/WeekCommentsNot Currently0 (1 standard drink = 0.6 oz pure alcohol)2-3 a year , winePHQ-2AnswerDate RecordedPatient Health Questionnaire-2 Gfwpe563UT Safety & EnvironmentAnswerDate RecordedFear of Current or Ex-PartnerNot on file11/27/2023Emotionally AbusedNot on file 11/27/2023hysically AbusedNot on file11/27/2023Sexually AbusedNot on file 4Physically or Sexually AbusedNot on file11/27/2023CommentsNo Sex and Gender InformationValueDate RecordedSex Assigned at BirthFemale 07/13/2022 9:44 AM EDTLegal ZyjSogxil28/30/2022 12:44 AM EDTGender Identity Rcvjbm2607/13/2022 9:44 AM EDTSexual OrientationChoose not to coyaczyw09/08/2022 9:44 AM EDT Last Filed Vital Signs Vital SignReadingTime TakenCommentsBlood Zyytueor526/8008 4:15 PM EDT Khqyc1498 4:15 PM JGUNouuroxavre75.2 ??C (99 ??F)06/01/2025 4:15 PM EDT Respiratory Tjlm0386 4:15 PM EDTOxygen Mpxdfmodqi34%06/01/2025 4:15 PM EDTInhaled Oxygen Concentration--Lswyuh77.5 kg (184 lb)06/01/2025 4:15 PM EDT Diovry499.5 cm (5' 2 )06/01/2025 4:15 PM EDTBody Mass Index33.6508 4:15 PM EDT Plan of Treatment DateTypeDepartmentCare Team (Latest Contact Info)Oweaurnrmvc31/25/2026 8:00 AM ESTFollow-Up [facility] Transplant [address] [place] [phone] Aguila Parrish MD [address] [place] [address] 12/07/2025 2:00 PM ESTFollow-Up [facility] Transplant [address] [place] [address] Ty Concepcion, CV/CVN CV TSC SYSTEM OPERATOR [address] [place], [place] [id number] Health MaintenanceDue DateLast DoneCommentsCT Ybiihytooqpq64/15/1976FIT-DNA 1975FIT1975FOBT1975 8485Zcagqhazyouvh51/15/1976Diabetes: Retinopathy Ktdfdzjgm54/15/1986Diabetes: Urine Protein Ctlyrxzyi01/15/1995 Hepatitis B Vaccines (1 of 3 - 19+ 3-dose series)1994Zoster Vaccines (1 of 2)1994Pap Smear1996Adult Aceobgr4311/20/1997Cervical Cancer Screening 2005HPV/Tjshwe9011/20/2005Pneumococcal Vaccine: Pediatrics (0 to 5 Years) and At-Risk Patients (6 to 64 Years) (2 of 2 - PCV)COVID-19 Vaccine (2 - Ainsley risk series)/2Diabetes: Hemoglobin A1C /, 08/26/2023, 02/24/2023, Additional history existsInfluenza Vaccine (#1)512/, 10/26/2023, 10/19/2023, Additional history existsDepression Yflpbvzev80/6615Yamxvsysl73/24/202711/, 08/25/2024, 7108Aegqvlbetsx352Colorectal Cancer Screening 04/01/2032HIB VaccinesAged OutNo longer eligible based on patient's age to complete this topicHPV VaccinesAged OutNo longer eligible based on patient's age to complete this topicIPV VaccinesAged OutNo longer eligible based on patient's age to complete this topicMeningococcal B VaccineAged OutNo longer eligible based on patient's age to complete this topicMeningococcal VaccineAged OutNo longer eligible based on patient's age to complete this topicRotavirus Vaccines Aged OutNo longer eligible based on patient's age to complete this topic Medical Devices ExplantedTypeAreaManufacturerDevice IdentifierShelf Expiration DateModel / Serial / LotStent,Ureteral,Polarultra,5x12 - [id number] Implanted:Qty: 1 on 09/20/2022 by Aguila Parrish MD at [facility] Explanted:10/15/2022 (Quantity not on file)StentN/A: UreterMatt Scientific [id number] / / [id number]:Transplant ureter Procedures Procedure NamePriorityDate/TimeAssociated DiagnosisCommentsEXT CBCRoutine 09/03/2025 9:06 AM EST EXT COMPREHENSIVE METABOLIC EWEAJQgqiexf83/29/2025 9:06 AM EST EXT SHNHJSTHmzvprg68/29/2025 9:06 AM EST EXT SEPWFTUPYDWuekuwu12/29/2025 9:06 AM EST EXT ZONFSQSMEQouyesp24/29/2025 9:06 AM EST EXT HSV NON-SPECIFIC ANTIBODY, IKLWooqfnu57/29/2025 9:06 AM EST EXT TACROLIMUS BEYNTJgufdks96/29/2025 7:16 AM EDT HEMOGLOBIN J9ZYjeuwov54/19/2024 7:57 AM EDT Impaired fasting glucose from Last 3 Months or Most Recently Relevant to Health Maintenance Results * External CBC (09/03/2025 9:06 AM EST)ComponentValueRef RangeTest Method Analysis TimePerformed AtPathologist SignatureExternal WBC8.7External RBC4.56 External Mhgkbsomje99%External Vggzkutise32.5g/dLExternal Behjwqohm477N/uLEXT MCV87.9fLEXT MCH29.6pgEXT MCHC33.7g/dLEXT RDW14.1%Ext Neutrophils Wqpfpmvl39.4 %Ext Lymphocytes Iabvrztw22.3%Ext Monocytes Relative5.4%Ext Eosinophils Relative2.6%Ext Basophils Relative0.5%Ext Neutrophils Absolute6.5010*3/uLExt Lymphocytes Absolute1.4010*3/uLExt Monocytes Absolute0.5010*3/uLExt Eosinophils Absolute0.2010*3/uLExt Basophils Absolute0.0010*3/uLExt Immature Granulocytes Relative0.8%Ext Immature Granulocytes Absolute0.0710*3/uLSpecimen (Source)Anatomical Location / LateralityCollection Method / VolumeCollection TimeReceived TimeBloodVenous blood specimen / Sazkunq8009/03/2025 9:06 AM EST Narrative Authorizing ProviderResult TypeResult StatusHistorical Provider [facility] EXTERNAL ORDERSEdited Result - Final * External Comprehensive metabolic panel (09/03/2025 9:06 AM EST)ComponentValue Ref RangeTest MethodAnalysis TimePerformed AtPathologist SignatureExternal Fasting Lqvcheo226sc/LExternal Creatinine, Serum1.13mg/mLExternal BUN14.0mg/dL External Potassium3.1mmol/LExternal Sodium, zrrtq300mopz/LExternal CO2, total 26.5mEq/LExternal Bnghpooe940kprx/LExternal Calcium9.61mg/dLExternal Albumin 3.7External Protein, total7.6g/dLExternal Alkaline Phosphatase3.8U/LExternal ALT22U/LExternal AST13U/LExternal Bilirubin,total0.4mg/dLSpecimen (Source) Anatomical Location / LateralityCollection Method / VolumeCollection Time Received TimeBloodVenous blood specimen / Xbqknjl1309/03/2025 9:06 AM EST Narrative Authorizing ProviderResult TypeResult StatusHistorical Provider [facility] EXTERNAL ORDERSFinal Result * HSV non-specific antibody, IgG (09/03/2025 9:06 AM EST)ComponentValueRef Range Test MethodAnalysis TimePerformed AtPathologist SignatureExternal Uric acid4.1 mg/dLSpecimen (Source)Anatomical Location / LateralityCollection Method / VolumeCollection TimeReceived TimeBloodVenous blood specimen / Unknown 09/03/2025 9:06 AM EST Narrative Authorizing ProviderResult TypeResult StatusHistorical Provider [facility] EXTERNAL ORDERSFinal Result * External Phosphorus (09/03/2025 9:06 AM EST)ComponentValueRef RangeTest Method Analysis TimePerformed AtPathologist SignatureExternal Phosphorus3.8Specimen (Source)Anatomical Location / LateralityCollection Method / VolumeCollection TimeReceived TimeBloodVenous blood specimen / Xjtkuho6909/03/2025 9:06 AM EST Narrative Authorizing ProviderResult TypeResult StatusHistorical Provider [facility] EXTERNAL ORDERSFinal Result * External Magnesium (09/03/2025 9:06 AM EST)ComponentValueRef RangeTest Method Analysis TimePerformed AtPathologist SignatureExternal Magnesium1.6mg/dL Specimen (Source)Anatomical Location / LateralityCollection Method / Volume Collection TimeReceived TimeBloodVenous blood specimen / Waxvbov5909/03/2025 9:06 AM EST Narrative Authorizing ProviderResult TypeResult StatusHistorical Provider [facility] EXTERNAL ORDERSFinal Result * External Calcium (09/03/2025 9:06 AM EST)ComponentValueRef RangeTest Method Analysis TimePerformed AtPathologist SignatureExternal Calcium9.6mg/dLSpecimen (Source)Anatomical Location / LateralityCollection Method / VolumeCollection TimeReceived TimeBloodVenous blood specimen / Zzkszwc0909/03/2025 9:06 AM EST Narrative Authorizing ProviderResult TypeResult StatusHistorical Provider [facility] EXTERNAL ORDERSFinal Result * External Tacrolimus level (08/03/2025 7:16 AM EDT)ComponentValueRef RangeTest MethodAnalysis TimePerformed AtPathologist SignatureExternal Tacrolimus level 5.5ng/mLSpecimen (Source)Anatomical Location / LateralityCollection Method / VolumeCollection TimeReceived TimeBloodVenous blood specimen / Unknown 08/03/2025 7:16 AM EDT Narrative Authorizing ProviderResult TypeResult StatusHistorical Provider [facility] EXTERNAL ORDERSFinal Result * Hemoglobin A1c (04/23/2024 7:57 AM EDT)ComponentValueRef RangeTest Method Analysis TimePerformed AtPathologist SignatureHemoglobin A1C5.34.0 - 6.0 % 04/23/2024 12:23 PM [facility])Estimated Average Ridkakw595 mg/dL04/23/2024 12:23 PM [facility] ([facility])Specimen (Source) Anatomical Location / LateralityCollection Method / VolumeCollection Time Received TimeBloodVenous blood specimen / UnknownVenipuncture / Unknown 04/23/2024 7:57 AM EDT04/23/2024 7:57 AM EDT Narrative Authorizing ProviderResult TypeResult StatusTori Magdaleno MDLAB BLOOD ORDERABLES Final ResultPerforming OrganizationAddressCity/State/ZIP CodePhone Number [facility] ([place] [address] [place] [address] from Last 3 Months or Most Recently Relevant to Health Maintenance Insurance * Guarantor: Malina Julio TypeRelation to PatientDate of BirthPhone Billing AddressPersonal/RjvddgTrpc[birth year][address] [address] * Guarantor: Malina Julio TypeRelation to PatientDate of BirthPhone Billing AddressTransplant UpztrkvjwNvyt29/[birth year]/[address] [phone] Advance Directives * Full Code (Latest Code Status on File) Date ActivatedDate GzphssgfaysZtmlulqh57/16/2022 4:39 AM09/23/2022 5:38 PM * Full Code Date ActivatedDate LqnuelldgggTmmlevnp25/15/2022 7:04 PM09/20/2022 4:39 AM * Full Code Date ActivatedDate CqafjmqpdocJxvwtefr25/15/2022 6:18 PM09/19/2022 6:49 PM Care Teams Team MemberRelationshipSpecialtyStart DateEnd Date Ming Triplett MD [address] PCP - Qworhgl34/8/22 Yaneth Camp MD [facility] [place] [address] Referring Nistinvfw19/3/22 Patrick Sam MD [facility] [place] [phone] Consulting KjdhkodjbTsgemge82/10/22 Nelson Davies MD [address] [place] [address] Consulting WebjcwhydSomwlrc48/7/22 Romero Zamarripa, ALESHA [address] [place] [address] Nurse PractitionerUrology12/23/23
--- OUTSIDE RECORDS SUMMARY | 2025-10-04 07:21 | XMS_ITS | Clinical Summary ---
Author Organization [facility] Address [address] [place] [address] Phone Care Team Providers Care Source Water Protection Specialist Name Role Phone Ming Triplett DO Primary Care Provider + [phone] Social History Tobacco UseTypesPacks/DayYears UsedDateSmoking Tobacco: Never Assessed CommentsUnknownSex and Gender InformationValueDate RecordedSex Assigned at Not on fileLegal YbqUqmgwi43/25/2022 7:01 PM ESTGender IdentityNot on fileSexual OrientationNot on file Plan of Treatment Not on file Care Teams Team MemberRelationshipSpecialtyStart DateEnd Date Ming Triplett DO [address] [place] [address] PCP - General01/06/19
--- OUTSIDE RECORDS SUMMARY | 2025-10-04 07:21 | XMS_ITS | Clinical Summary ---
Author Organization [facility] Address [facility] [place] [address] Care Team Providers Care Automobile Technician Name Role Phone Ioana, Ming Mark Primary Care Provider + Allergies Active AllergyReactionsCriticalityNoted AlizAfzqylniNeimqpvyhyzXfigx53/28/2019 Medications MedicationSigDispense QuantityRefillsLast FilledStart DateEnd DateStatus DULoxetine [...] number is lower riskNot on file03/30/2021ata from: https://www.neighborhoodatlas.medicine.[facility]/. Last address used for calculationNot on file1CommentsUnknownSex and Gender InformationValueDate RecordedSex Assigned at BirthNot on fileLegal BshYhynfi24/02/2018 8:53 AM ESTGender IdentityNot on fileSexual OrientationNot on file Last Filed Vital Signs Vital SignReadingTime TakenCommentsBlood Qjfjbxty269/7706 8:59 AM EDT Flygx703103/30/2021 8:59 AM JULRrnmogbjbcz76.8 ??C (98.2 ??F)03/30/2021 8:59 AM EDTRespiratory Rate--Oxygen Saturation--Inhaled Oxygen Concentration--Naacdl23 kg (205 lb)03/30/2021 8:59 AM URDLxhkrw038.9 cm (5' 1 )03/30/2021 8:59 AM EDT Body Mass Index38.7303/30/2021 8:59 AM EDT Plan of Treatment Health MaintenanceDue DateLast DoneCommentsAnxiety Jlorpnxzh79/15/1994Depression Mupoyaegt71/15/1994HIV Dzgjyrcox54/15/1994Hepatitis C Ttcjnimqf40/15/1994 DTaP,Tdap,Td Vaccine (1 - Tdap)1994Hepatitis B Vaccine (1 of 3 - 19+ 3- dose series)1994Cervical Cancer Qqyijoavm93/15/1997Mammogram Screening 2015CT Pnxdecrfivaz65/15/2021ologuard (FIT-DNA)2020olonoscopy 2020olorectal Cancer Rsibsodzr94/15/2021Fecal Occult Blood1Lipid Kbqynwwim97/15/9155Btuvfobhwnpwv19/15/2021iabetes Pduylcyth42 Covid-19 Vaccine (2024- season)2025Influenza Vaccine (#1)2025 05/29/2020, 08/11/2019 Insurance * Guarantor: Mandeep Puri LAccount TypeRelation to PatientDate of BirthPhone Billing AddressPersonal/CjodgiYxwc69/15/1976 [address] [place] [address] Care Teams Team MemberRelationshipSpecialtyStart DateEnd Date Ming Triplett DO [address] [place] [address] PCP - GeneralInternal Medicine11/07/17
--- OUTSIDE RECORDS SUMMARY | 2025-10-04 07:22 | XMS_ITS | CCD ---
Author Organization [facility] Care Team Providers Care Mixing Machine Tender Cork Rod Name Role Phone Ming Espinoza Primary Care Provider VIDAL MADRIGAL Attending Unavailable MING ESPINOZA Primary Care Unavailable Toni, Yaneth Unavailable Shabbir Jones Unavailable Dipika Stinson Unavailable Jesus Parham Unavailable [phone] DO Ming Espinoza Primary Care Provider MD Shabbir Jones Attending Provider MD Yaneth Muñoz Attending Provider [phone] MD Jesus Parham Attending Provider Estefania Vo Unavailable DO Ming Espinoza Primary Care Provider [phone] EB Forman Emergency Provider DO Blake Hinojosa Attending Provider [phone] ANGELAC, DR ZARAGOZA Admitting Unavailable DR MING [...] Unavailable DO Alexis Ming Primary Care Provider [phone] MD Perri Ceja Attending Provider [phone] CECILIA Edwards Attending Provider [phone] Ming Espinoza DO Unavailable Ming Espinoza DO Primary Care Provider DO Ming Espinoza Primary Care Provider MD Jesus Ayala Attending Provider DO Blake Hinojosa Referring Provider Ming Espinoza DO Primary Care Provider Jesus Ayala MD Attending Provider Blake Hinojosa DO Referring Provider [phone] Blake Hinojoas DO Attending Provider Leon Monterroso MD Attending Provider Perri Wong MD Primary Care Provider [phone] Alan Stein DO Emergency Provider [phone] Perri Wong MD Primary Care Provider [phone] MING ESPINOZA Attending Unavailable MING ESPINOZA Attending [...] of OnsetReaction(s) Facility (20 sources)Allopurinol; Translations: [ALLOPURINOL]Drug [place]ok[place]16[place]1427asayvFort[place], [place] (20 sources)venlafaxine; Translations: [venlafaxine]Drug Ucyuaky33-61-5854[facility] ([facility] sources)venlafaxine; Translations: [VENLAFAXINE HCL]Drug Nlkxbzh07-80-0184 [facility] (1 source)AllopurinolDrug Kduxkkq53-99-3974BmjartonzDayton Osteopathic Hospital Rep[facility] Medications Current Medications MedicationDrug Class(es)DatesSig (Normalized)Sig (Original)amLODIPine 10 mg oral tablet (20 sources)Dihydropyridine Calcium Channel BlockerStart: 04-73-0030durd 1 tablet by mouth once daily in the morningamLODIPine (Norvasc) 10 MG tablet Indications: Essential hypertension TAKE 1 TABLET BY MOUTH EVERY DAY IN THE MORNING 90 tablet 3 07/05/2025 ActiveStart: 08-21-2023 End: 33-32-7840shqi 1 tablet by mouth at bedtimeamLODIPine (Norvasc) 10 MG tablet Indications: Essential hypertension Take 1 tablet (10 mg) by mouth at bedtime 05/27/2025 Activeamoxicillin 875 mg / clavulanate 125 mg oral tablet (8 sources)Penicillin-class AntibacterialStart: 07-27-2024 End: 57-84-3370zedu 1 tablet by mouth in the morningamoxicillin-clavulanate [...] 500 mg oral capsule (5 sources)Vitamin CStart: 90-71-9635ikay 1 capsule by mouth every other day Ascorbic Acid (Vitamin C) 500 MG capsule Indications: Iron deficiency anemia, unspecified iron deficiency anemia type Take 500 mg by mouth every other day 05/27/2025 Active{1 (ascorbic acid 7540 MG / polyethylene glycol 3350 56139 MG / potassium chloride 1200 MG / sodiumascorbate 75001 MG / sodium chloride 3200 MG Powder for Oral Solution) / 1 (polyethylene glycol 3350 768089 MG / potassium chloride 1000 MG / sodium chloride 2000 MG / sodium sulfate 9000 MG Powder for Oral Solution) } Pack [Plenvu] (1 source)Osmotic Laxative, Vitamin CStart: 28-54-6019Laliua 140 GM dose 1 pouch at 4pm, dose 2 pouch A & B at 11pm Orally twice a day for 1 days BIN:[id number] PCN: [id number] GROUP:[id number] ID:[id number] February, Activecephalexin 500 mg oral capsule (20 sources)Cephalosporin AntibacterialStart: 03-22-2024 End: 35-78-3204hiyt 1 capsule by mouth twice dailyStart: 04-01-2022 End: 04-03-0177wijg 1 capsule by mouth four times dailyCephalexin 500 mg Capsule Discontinued 500 MG PO Four times daily April 01, 2022 12:00am June 05, 2022 9:02amStart: 08-05-2019 End: 68-21-8450bvqv 1 capsule by mouth twice dailyCephalexin (Keflex) 500 mg capsule Discontinued 500 MG PO Twice daily 24 August 05, 2019 12:00am May 21, 2020 9:38pmStart: 01-20-2019 End: 98-93-7399khbg 1 capsule by mouth every eight hoursCephalexin (Keflex) 500 mg capsule Discontinued 500 MG PO Q8H 15 5 January 20, 2019 12:00am 2018 5:51pmcetirizine hydrochloride 10 mg oral tablet (14 sources)Histamine-1 Receptor AntagonistStart: 94-70-5271pjwq 1 tablet by mouth once daily as neededtake 1 tablet by mouth once daily as neededZyrTEC Allergy 10 MG 1 tablet as needed Orally Once a day ActiveDULoxetine 60 mg delayed release oral capsule (20 sources)Serotonin and Norepinephrine Reuptake InhibitorStart: 01-19-2019 End: 22-43-0403ojig 1 capsule by mouth once daily in the morning End: 31-50-8163OBVvxdwuqf (Cymbalta) [address] capsule Take 30 [...] sulfate 325 mg oral tablet (20 sources)Start: 59-54-3316fxcw 1 tablet by mouth once dailyStart: 04-01-2022 End: 68-00-8591lmfl 1 tablet by mouth every other dayFerrous Sulfate 27 mg iron Tablet Discontinued 27 MG PO Q2D April 01, 2022 12:00am March 1545:30pm Start: 71-04-9089hsup 1 tablet by mouth every other dayferrous sulfate 325 (65 Fe) MG tablet Take 1 tablet by mouth every other day. 07/10/2021 ActiveStart: 08-05-2019 End: 69-49-1583nryy 1 tablet by mouth twice dailyFerrous Sulfate 324 mg (65 mg iron) Tablet,Delayed Release (Dr/Ec) Discontinued 324 MG PO Twice daily 60 30 August 05, 2019 12:00am April 01, 2022 7:05amStart: 01-20-2019 End: 05-75-1915yvjz 1 tablet by mouth twice dailyFerrous Sulfate 324 mg (65 mg iron) Tablet,Delayed Release (Dr/Ec) Discontinued 324 MG PO Twice daily 60 January 20, 2019 12:00am August 02, 2019 5:52pmfluconazole 150 mg oral tablet (2 sources)Azole AntifungalStart: 07-27-2024 End: 40-42-0212vqwflhwikzx (Diflucan) 150 MG tablet Indications: Side effect [...] unt/ml pen injector (13 sources)Insulin Analog End: 98-85-7550Kethvph FlexPen 100 UNIT/ML pen Inject 12 Units under the skin in the morning. 10/01/2024 DiscontinuedIron (9 sources)take 1 tablet by mouth every other dayIron (Ferrous Sulfate) 325 (65 Fe) MG 1 tablet Orally every other day Activemagnesium oxide 400 mg oral tablet (20 sources)Start: 03-31-2024 End: 20-30-2549qhlv 2 tablets by mouth in the morningmagnesium oxide (Mag-Ox) 400 MG tablet TAKE 2 TABLETS BY MOUTH IN THE MORNING AND 2 TABLETS AT BEDTIME 03/31/2024 08/02/2024 Discontinued (Duplicate order)Start: 51-05-7574doqn 2 tablets by mouth in the morningmagnesium oxide (Mag-Ox) 400 (240 Mg) MG tablet TAKE 2 TABLETS BY MOUTH IN THE MORNING AND 2 TABLETS AT BEDTIME 06/22/2024 Activemethenamine hippurate 1000 mg oral tablet (18 sources) End: 99-78-8341lzot 1 tablet by mouth twice dailymethenamine hippurate (Hiprex) 1 g tablet TAKE 1 TABLET (1 G) BY MOUTH TWO TIMES DAILY. 04/11/2025 Discontinued (Therapy completed)Multivitamin (Multiple Vitamins) tablet (5 sources)Start: 75-89-9520rxsc 1 tablet by mouth once dailyStart: 03-15-2024 take 1 tablet by mouth once dailyMultivitamin (Multiple Vitamins) tablet Active 1 TAB PO Daily March 14, 2024 11:00pmStart: 32-66-0505zlup 1 tablet by mouth once dailyMultivitamin (Multiple Vitamins) tablet Active 1 TAB PO Daily March 15, 2024 12:00amMultivitamin preparation (9 sources)take 1 tablet by mouth once dailyMulti Vitamin - 1 tablet Orally Once a day ActiveMYCOPHENOLATE (2 sources)Start: 27-01-4839sung 180 mg by mouth once dailyMycophenolate Sodium Active 180 MG PO Daily March 15, 2024 12:00amMycophenolate Sodium 180 mg tablet,delayed release (DR/EC) (2 sources)Start: 39-47-0381cutf 1 tablet by mouth once dailyMycophenolate Sodium 180 mg tablet,delayed release (DR/EC) Active 180 MG PO Daily March 14, 2024 11:00pmmycophenolic acid 180 mg delayed release oral tablet (20 sources)Antimetabolite ImmunosuppressantStart: 50-51-8733lhjm 1 tablet by mouth once dailytake 4 tablets by mouth in the morningmycophenolate (Myfortic) 180 MG EC tablet Take 4 tablets by mouth in the morning and 4 tablets before bedtime. Activemicroencapsulated potassium chloride 20 meq extended release oral tablet (20 sources)Start: 51-70-8278Gjojlzlpi Chloride (Klor-Con M20) 20 mEq tablet,ER particles/crystals (4 sources)Start: 24-44-9677Wsofbmphs Chloride (Klor-Con M20) 20 mEq tablet,ER particles/crystals Active 20 MEQ PO Daily March 14, 2024 11:00pmStart: 49-45-7305Rvgzlvlck Chloride (Klor-Con M20) 20 mEq tablet,ER particles/crystals Active 20 MEQ PO Daily March 15, 2024 12:00ampravastatin sodium 40 mg oral tablet (20 sources)HMG-CoA Reductase InhibitorStart: 60-88-9151atil 1 tablet by mouth once dailySemaglutide (1 source)Start: 54-65-2741Tchrzltdjgm (Ozempic) 2 mg/dose (8 mg/3 mL) pen injector (4 sources)Start: 92-72-6610Fxusmfegzwv (Ozempic) 2 mg/dose (8 mg/3 mL) pen injector Active MG SUBCUT March 14, 2024 11:00pmStart: 41-83-7558Jukldpahlfj (Ozempic) 2 mg/dose (8 mg/3 mL) pen injector Active MG SUBCUT March 15, 2024 12:00amsemaglutide (Ozempic) 4 MG/3ML solution pen-injector (2 sources)Start: 26-96-2108ezyfga 1 mg by subcutaneous injection every week semaglutide (Ozempic) 4 MG/3ML solution pen-injector Indications: Type 2 diabetes mellitus with other specified complication, without long-term current use of insulin (CMS/HCC) Inject 1 mg under the skin 1 (one) time per week 3 mL 03/23/2024 ActiveSemaglutide, 2 MG/DOSE, (Ozempic, 2 MG/DOSE,) 8 MG/3ML solution pen-injector (11 sources)Start: 31-49-8231wsgchd 2 mg by subcutaneous injection every week Semaglutide, 2 MG/DOSE, (Ozempic, 2 MG/DOSE,) 8 MG/3ML solution pen-injector Indications: Type 2 diabetes mellitus with stage 3a chronic kidney disease, without long-term current use of insulin (HCC)INJECT 2 MG SUBCUTANEOUSLY WEEKLY 9 mL 3 07/27/2025 ActiveStart: 54-93-9254fxdabu 2 mg by subcutaneous injection every weekSemaglutide, 2 MG/DOSE, (Ozempic, 2 MG/DOSE,) 8 MG/3ML solution pen- injector Indications: Type 2 diabetes mellitus with stage 3a chronic kidney disease, without long-term current use of insulin (HCC)Inject 2 mg under the skin 1 (one) time per week 12 mL 1 01/03/2025 ActiveStart: 04-01-4505ucgaee 2 mg by subcutaneous injection every weekSemaglutide, 2 MG/DOSE, (Ozempic, 2 MG/DOSE,) 8 MG/3ML solution pen-injector Indications: Type 2 diabetes mellitus with stage 3a chronic kidney disease, without long-term current use of insulin (HCC)(CMS/[facility]) Inject 2 mg under the skin 1 (one) time per week 12 mL 1 01/03/2025 Active3 ml sodium chloride 9 mg/ml injection (4 sources)Start: 18-80-4025eaakuy chloride flush 0.9 % injection 10 mLStart: 34-64-2568zxooii chloride flush 0.9 % injection 10 mLStart: 08-02-2019 End: 08-02-20190.9 % sodium chloride bolussulfamethoxazole 800 mg / trimethoprim 160 mg oral tablet (5 sources)Dihydrofolate Reductase Inhibitor Antibacterial, Sulfonamide AntimicrobialStart: 40-58-1444fnqt 1 tablet by mouth twice daily24 hr tacrolimus 0.75 mg extended release oral tablet (20 sources)Calcineurin Inhibitor ImmunosuppressantStart: 90-58-1339Trenfrtw XR 0.75 MG tablet ER 09/06/2024 ActiveStart: 03-15-2024 End: 04-11-2025 Completed/Discontinued Medications MedicationDrug Class(es)DatesSig (Normalized)Sig (Original)acetaminophen 500 mg oral tablet (11 sources)Start: 08-02-2019 End: 56-66-5466owyudepxfquvs (TYLENOL) tablet 1,000 mgStart: 38-96-0225powm 2 tablets by mouth once daily as needed for paincalcitriol 0.88110 mg oral capsule (10 sources)Vitamin D3 AnalogStart: 01-20-2019 End: 74-28-5660Ciifyptyin (Rocaltrol) 0.25 mcg Capsule Discontinued 0.25 MCG PO MoWeFr@0900 January 20, 2019 12:00am August 02, 2019 5:53pmcalcium carbonate 500 mg chewable tablet (10 sources)Start: 01-19-2019 End: 73-04-7375nvzy 1 tablet by mouth four times daily as needed for gastroesophageal reflux diseaseCalcium Carbonate (Tums) 200 mg calcium (500 mg) Tablet,Chewable Discontinued 200 MG PO Four times daily as needed for Heartburn January 19, 2019 12:00am August 02, 2019 5:51pmcefTRIAXone (ROCEPHIN) 1 g in sterile water 10 mL IV syringe (1 source)Start: 08-02-2019 End: 24-30-5777kwzBGMHWijk (ROCEPHIN) 1 g in sterile water 10 mL IV syringe ciprofloxacin 250 mg oral tablet (13 sources)Quinolone AntimicrobialStart: 11-05-2024 End: 62-76-4854qrhc 1 tablet by mouth in the morningciprofloxacin (Cipro) 250 MG tablet Take 250 mg by mouth in the morning and 250 mg before bedtime. 0 11/05/2024 01/03/2025 Discontinued (Therapy completed)Start: 05-15-2020 End: 78-66-4143bufz 1 tablet by mouth every twelve hoursCiprofloxacin Hcl (Cipro) 250 mg tablet Discontinued 250 MG PO Q12H 6 3 May 15, 2020 12:00am April 01, 2022 7:03amergocalciferol 1.25 mg oral capsule (10 sources)Provitamin D2 CompoundStart: 01-20-2019 End: 00-65-5035wtmy 1 capsule by mouth every monthErgocalciferol (Vitamin D2) 50,000 unit capsule Discontinued 83963 UNIT PO every month January 20, 2019 12:00am August 02, 2019 5:53pmfebuxostat 40 mg oral tablet (19 sources)Xanthine Oxidase InhibitorStart: 08-02-2019 End: 10-36-2293Xjtwcxzdje (Uloric) 40 mg Tablet Discontinued 20 MG PO Every morning August 02, 2019 12:00am March 15, 2024 5:37pmtake 0.5 tablet by mouth once dailyUloric 40 MG 1/2 tablet Orally Once a day Active hydroCHLOROthiazide 12.5 mg / lisinopril 20 mg oral tablet (10 sources)Thiazide Diuretic, Angiotensin Converting Enzyme InhibitorStart: 01-19-2019 End: 57-33-2109sfan 1 tablet by mouth once dailyLisinopril-Hydrochlorothiazide 20-12.5 mg tablet Discontinued 1 TAB PO Daily January 19, 2019 12:00am August 05, 2019 4:31pmIopamidol (1 source)Radiographic Contrast AgentStart: 08-02-2019 End: 13-68-6100aoojauvpp (ISOVUE-370) 76 % injection 100 mLlisinopril 20 mg oral tablet (20 sources)Angiotensin Converting Enzyme InhibitorStart: 08-05-2019 End: 19-32-6270gfjt 1 tablet by mouth once daily in the morningLisinopril 20 mg tablet Discontinued 20 MG PO Every morning June 05, 2022 9:09am March 15, 2024 5:37pmLISINOPRIL PO Take by mouth 0 Activesemaglutide (Ozempic, 1 MG/DOSE,) 4 MG/3ML solution pen-injector (20 sources)Start: 11-01-2024 End: 47-41-8410yagndq 1 mg by subcutaneous injection every weeksemaglutide (Ozempic, 1 MG/DOSE,) 4 MG/3ML solution pen-injector Indications: Type 2 diabetes mellitus with other specified complication, without long-term current use of insulin (HCC) INJECT 1 MG UNDER THE SKIN 1 (ONE) TIME PER WEEK 9 mL 3 11/01/2024 05/27/2025 Discontinued (Therapy completed)Start: 41-95-3231iwpfab 1 mg by subcutaneous injection every weeksemaglutide (Ozempic, 1 MG/DOSE,) 4 MG/3ML solution pen-injector Indications: Type 2 diabetes mellitus with other specified complication, without long-term current use of insulin (HCC) INJECT 1 MG UNDER THE SKIN 1 (ONE) TIME PER WEEK 9 mL 3 11/01/2024 ActiveStart: 88-57-7187gdsgfq 1 mg by subcutaneous injection every weeksemaglutide (Ozempic, 1 MG/DOSE,) 4 MG/3ML solution pen-injector Indications: Type 2 diabetes mellitus with other specified complication, without long-term current use of insulin INJECT 1 MG UNDER THE SKIN 1 (ONE) TIME PER WEEK 9 mL 3 11/01/2024 ActiveStart: 02-24-4024pihzat 1 mg by subcutaneous injection every weeksemaglutide (Ozempic, 1 MG/DOSE,) 4 MG/3ML solution pen-injector Indications: Type 2 diabetes mellitus with other specified complication, without long-term current use of insulin (CMS/HCC) INJECT 1 MG UNDER THE SKIN 1 (ONE) TIME PER WEEK 9 mL 3 11/01/2024 ActiveStart: 52-57-6659zwuifm 1 mg by subcutaneous injection every week semaglutide (Ozempic, 1 MG/DOSE,) 4 MG/3ML solution pen-injector Indications: Type 2 diabetes mellitus with other specified complication, without long-term current use of insulin (CMS/HCC) INJECT 1 MG UNDER THE SKIN 1 (ONE) TIME PER WEEK 3 mL 3 06/29/2024 Activesodium bicarbonate 650 mg oral tablet (19 sources)Start: 04-01-2022 End: 76-71-1234josz 1 tablet by mouth twice dailySodium Bicarbonate 650 mg Tablet Discontinued 650 MG PO Twice daily April 01, 2022 12:00am March 15, 2024 5:37pmtiZANidine 4 mg oral tablet (20 sources)Central alpha-2 Adrenergic AgonistStart: 08-31-2024 End: 48-34-4750sngk 1 tablet by mouth at bedtimetiZANidine (Zanaflex) 4 MG tablet Take 4 mg by mouth at bedtime 08/31/2024 05/27/2025 Discontinued (Therapy completed) End: 99-19-3326knUQHbfjmq HCl (ZANAFLEX PO) Take by mouth 09/14/2024 DiscontinuedtiZANidine HCl (ZANAFLEX PO) Take by mouth Active Problems Active Problems Problem ClassificationProblemDateDocumented DateEpisodic/ChronicAbdominal pain (3 sources)Generalized abdominal pain; Translations: [Generalized abdominal pain]Onset: 734169-05-1919ScomzspaOphtb and chronic tonsillitis (20 sources)Amygdalolith; Translations: [Other chronic diseases of tonsils and adenoids]Onset: 050923-54-6925KmqcbujAqdkn and unspecified renal failure (1 source)Chronic renal failure; Translations: [Chronic renal failure, stage 4 (severe) ([facility])]ChronicAcute and unspecified renal failure (10 sources)Injury of kidney; Translations: [Acute kidney failure, unspecified] 80-51-6227GzvydlzpMupysmz disorders (20 sources)Anxiety; Translations: [Anxiety disorder, unspecified]Onset: 115031-09-0828QewpwaiEgbuaht kidney disease (20 sources)Chronic kidney disease stage 4; Translations: [Chronic kidney disease, stage 4 (severe)]Onset: 12-05-2021 Resolved: 51-50-6102UwdqtywDczijxmikrfpn of surgical procedures or medical care (2 sources)Drug therapy finding; Translations: [Unspecified adverse effect of drug or medicament, initial encounter]85-12-8010SplpicoxQxbinilhbm and other anemia (20 sources)Anemia of renal disease; Translations: [Anemia in chronic kidney disease]Onset: 388338-49-9049FbcizulTwhgkmtoua and other anemia (8 sources)Anemia in chronic kidney disease; Translations: [ANEMIA IN CHRONIC KIDNEY DISEASE]Onset: 09-01-2021 Resolved: 17-10-1417QmqklshQtvugxgu mellitus with complications (20 sources)Chronic kidney disease due to type 2 diabetes mellitus; Translations: [Type 2 diabetes mellitus with diabetic chronic kidney disease] Onset: 118783-56-8277NgcfegaRfwimieri of lipid metabolism (20 sources)Dyslipidemia; Translations: [Hyperlipidemia, unspecified]Onset: 690110-17-5972QxcljknMekhprqmct disorders (20 sources)Gastroesophageal reflux disease; Translations: [Gastro-esophageal reflux disease without esophagitis]Onset: 071891-85-3355JqvvvahEckhwyxtl hypertension (20 sources)Benign essential hypertension; Translations: [Essential (primary) hypertension]Onset: 03-04-2023 Resolved: 971764-03-9433GliwibdWmuws of unknown origin (10 sources)Fever; Translations: [Fever, unspecified]11-06-4092HjwphyylGdlox and electrolyte disorders (5 sources)Acidosis; Translations: [Hypokalemia]Onset: 12-06-2021 Resolved: 1975WkibamktRmzbvceoaogvp congenital anomalies (20 sources)Polycystic kidney disease, adult type; Translations: [Polycystic kidney, adult type]Onset: 03-30-2021 Resolved: 34-18-6673FdgzzjeZgsfzumpcskth congenital anomalies (1 source)Multiple renal cysts; Translations: [Polycystic kidney disease] EpisodicGenitourinary symptoms and ill-defined conditions (11 sources)Dysuria; Translations: [Dysuria]60-89-1486TczfyzjnAzvddjkgyaee with complications and secondary hypertension (20 sources)Chronic kidney disease due to hypertension; Translations: [Hypertensive chronic kidney disease withstage 1 through stage 4 chronic kidney disease, or unspecified chronic kidney disease]Onset: 09-08-2021 Resolved: 04-08-2621NsphbaaMycnhuoc disorders (2 sources)Immunosuppression; Translations: [Immunodeficiency, unspecified] 38-02-8233EvflqifWglosdmuzarch and screening for infectious disease (2 sources)Needs influenza immunization; Translations: [Encounter for immunization]79-46-6816QlaejgtwGmmdskudfyss hypoxia and asphyxia (1 source)Metabolic acidemia, unspecifiedEpisodicMalaise and fatigue (2 sources)Fatigue; Translations: [Chronic fatigue, unspecified]04-11-2025 ChronicMood disorders (5 sources)Moderate major depression ; Translations: [Major depressive disorder, single episode, moderate]Onset: 035574-80-4798OeposfyHqjnofndzlv deficiencies (10 sources)Vitamin D deficiency; Translations: [Vitamin D deficiency, unspecified]45-77-3488VolzcnqAzljflpptgzirh (5 sources)Degenerative joint disease involving multiple joints; Translations: [Primary generalized (osteo)arthritis]Onset: 280723-85-0359MrmsxskGbnon circulatory disease (7 sources)Acquired arteriovenous fistula aneurysm; Translations: [Arteriovenous fistula, acquired]ChronicOther circulatory disease (1 source)Ecchymosis; Translations: [Hemorrhage, not elsewhere classified] 62-13-3445MctmmltvNeske circulatory disease (6 sources)Hemorrhage, not elsewhere classified; Translations: [Postoperative ecchymosis]75-85-6135QoniqlroUursw connective tissue disease (7 sources)Pain in left arm; Translations: [Pain in left arm]43-46-3882Nlznnbeh Other connective tissue disease (5 sources)H/O: gout; Translations: [Personal history of other diseases of the musculoskeletal system and connective tissue]Onset: 752933-70-0734Mejpglmf Other diseases of kidney and ureters (20 sources)Secondary hyperparathyroidism; Translations: [Secondary hyperparathyroidism of renal origin]Onset: 508627-44-1319TnpsrheQwdjk diseases of kidney and ureters (4 sources)Secondary hyperparathyroidism of renal origin; Translations: [SEC HYPERPARATHYROIDISM RENAL ORIGN]Onset: 12-06-2021 Resolved: 52-92-2720HlamnewZpnlo female genital disorders (1 source)Pain in female genitalia on intercourse; Translations: [Unspecified dyspareunia]24-90-2783KsfdkhxWqylp inflammatory condition of skin (10 sources)Pruritus of skin; Translations: [Pruritus, unspecified]08-04-2019 EpisodicOther non-traumatic joint disorders (20 sources)Polyarthropathy; Translations: [Polyarthritis, unspecified]Onset: 752503-89-4899NxzvmkwJuqwh nutritional; endocrine; and metabolic disorders (5 sources)Obesity caused by energy imbalance; Translations: [Class 1 obesity due to excess calories with serious comorbidity and body mass index (BMI) of 34.0 to 34.9 in adult]Onset: 728454-65-0819WzrqhetBmkhe upper respiratory infections (2 sources)Acute pansinusitis; Translations: [Acute pansinusitis, unspecified] 43-73-1965SivonmgwWgqpcqp cyst (6 sources)Unspecified ovarian cyst, left side; Translations: [Cyst of left ovary]Onset: 14-20-8018TxpwvlaeDulnceohwp (except in labor) (11 sources)Sepsis; Translations: [Sepsis due to urinary tract infection] 33-51-7090IwhbmlibMpzvrqx tract infections (20 sources)Acute cystitis; Translations: [Urinary tract infectious disease] 63-69-0595Ifizyilk Past or Other Problems Problem ClassificationProblemDateDocumented DateEpisodic/ChronicAcute myocardial infarction (20 sources)Myocardial infarction; Translations: [Non-ST elevation (NSTEMI) myocardial infarction]Onset: 04-16-2024 Resolved: 271596-31-9865ShviqkoSgotchtwzi and other anemia (20 sources)Iron deficiency anemia; Translations: [Iron deficiency anemia, unspecified]Onset: 076264-25-1728VnpdlhagFxxpxntw mellitus without complication (20 sources)Impaired fasting glycemia; Translations: [Impaired fasting glucose] Onset: 03-04-2023 Resolved: 339659-93-5749DjwysejjUdug and other crystal arthropathies (20 sources)Gout; Translations: [Gout, unspecified]Onset: 12-06-2021 Resolved: 22-12-3918SvsaowzVncad aftercare (20 sources)Transplant follow-up; Translations: [Other terminal system operator (current) drug therapy]Onset: 414436-20-0230QhtftyhgFxaai connective tissue disease (20 sources)Fibromyalgia; Translations: [Fibromyalgia]Onset: 03-04-2023 11-93-0730ZllvsdfeYxjqi hematologic conditions (1 source)Elevated erythrocyte sedimentation rate; Translations: [Elevated erythrocyte sedimentation rate]Onset: 60-96-7864VbmsytnnZkguv nutritional; endocrine; and metabolic disorders (20 sources)Hyperuricemia; Translations: [Hyperuricemia without signs of inflammatory arthritis and tophaceous disease]Onset: 03-04-2023 Resolved: 014494-05-3105CxnwtqsoNddsn screening for suspected conditions (not mental disorders or infectious disease) (4 sources)Encounter for screening for malignant neoplasm of colon; Translations: [Decreased vitamin D]Onset: 02-26-2022 Resolved: 31-88-3278GufbjkytPuhasb media and related conditions (1 source)Otitis media, unspecified, bilateralOnset: 04-30-2022 Resolved: 01-99-4983HcktseasUsvggjwx codes; unclassified (20 sources)Obstructive sleep apnea syndrome; Translations: [Obstructive sleep apnea (adult) (pediatric)]Onset: 03-04-2023 Resolved: hronic Results Test NameValueInterpretationReference RangeFacilityALL CBC WITH AUTO DIFFon [id number] ABSOLUTE AUTO0.0NOMercy hospital springfieldBasophils/100 WBC (Bld)0.4 % 0.2 - 2.0 %[facility] HealthEosinophils/100 WBC (Bld)2.7 %0.9 - 7.0 %[facility] HealthErythrocyte distribution width (RBC) [Ratio]13.8 %11.0 - 15.0 %[facility] HealthHematocrit (Bld) [Volume fraction]39.1 %36.0 - 48.0 %[facility] Hemoglobin (Bld) [Mass/Vol]12.9 g/dL12.0 - 16.0 g/dLCrittenton Behavioral HealthIMMATURE GRANULOCYTES ABS AUTO0.06HighCrittenton Behavioral HealthImmature granulocytes/100 WBC (Bld) 0.7 %High0.0 - 0.5 %[facility] HealthInterpretation and review of laboratory resultsAbnormalCrittenton Behavioral HealthLYMPHOCYTES ABSOLUTE AUTO1.4NOMercy [facility] Lymphocytes/100 WBC (Bld)15.4 %Low20.5 - 60.0 %[facility] HospitalH (RBC) [Entitic mass]28.9 pg26.7 - 34.0 pgProgress West HospitalHC (RBC) [Mass/Vol]33.0 g/dL29.9 - 35.2 g/dLProgress West HospitalV (RBC) [Entitic vol]87.5 fL81.0 - 99.0 fLCrittenton Behavioral HealthMONOCYTES ABSOLUTE AUTO0.5NOSC HealthcareMonocytes/100 WBC (Bld)5.4 % 1.7 - 12.0 %[facility] HealthNEUTROPHILS ABSOLUTE AUTO6.7HighCrittenton Behavioral Health Neutrophils/100 WBC (Bld)75.4 %High43.0 - 75.0 %[facility] HealthcarePlatelet mean volume (Bld) [Entitic vol]8.7 fLLow9.5 - 13.5 fLSaint Joseph [facility]wood EO #0.2NOMS [facility] HospitalTBH [id number] [facility] RBC4.47NOMS [facility] WBC8.9NOMercy hospital springfieldCLINISYNCNALLIANCEHEALTH [facility] [place] HealthcareALL CBC WITH AUTO DIFFon [id number] ABSOLUTE AUTO0.1NOMS HealthcareBasophils/100 WBC (Bld)0.6 %0.2 - 2.0 %NOMS HealthcareEosinophils/100 WBC (Bld)3.6 %0.9 - 7.0 %[facility] HealthcareErythrocyte distribution width (RBC) [Ratio]13.8 %11.0 - 15.0 %NOM HealthcareHematocrit (Bld) [Volume fraction]39.4 %36.0 - 48.0 %[facility] HealthHemoglobin (Bld) [Mass/Vol]13.3 g/dL12.0 - 16.0 g/dLCrittenton Behavioral HealthIMMATURE GRANULOCYTES ABS AUTO 0.04HighNOMercy hospital springfieldImmature granulocytes/100 WBC (Bld)0.5 %0.0 - 0.5 %[facility] HealthcareInterpretation and review of laboratory resultsAbnormalCrittenton Behavioral Health LYMPHOCYTES ABSOLUTE AUTO1.5NOMercy hospital springfieldLymphocytes/100 WBC (Bld)19.9 %Low 20.5 - 60.0 %[facility] HospitalH (RBC) [Entitic mass]29 pg26.7 - 34.0 pgProgress West HospitalHC (RBC) [Mass/Vol]33.8 g/dL29.9 - 35.2 g/dLProgress West HospitalV (RBC) [Entitic vol]85.8 fL81.0 - 99.0 fLCrittenton Behavioral HealthMONOCYTES ABSOLUTE AUTO0.4NOMS HealthcareMonocytes/100 WBC (Bld)5.4 %1.7 - 12.0 %NOM HealthcareNEUTROPHILS ABSOLUTE AUTO5.4NOSC HealthcareNeutrophils/100 WBC (Bld)70 %43.0 - 75.0 %[facility] HealthcarePlatelet mean volume (Bld) [Entitic vol]9 fLLow9.5 - 13.5 fLNOMS HealthcareTBH EO #0.3NOMS HealthcareTBH [id number] HealthcareTBH RBC4.59NOMS HealthcareTBH WBC7.7NOMS HealthcareCLINISYNCNOMS HealthcareFollow-Upon [id number] Mandeep Puri 1975 F Date Provider Department Center 06/01/2025 [id number], LEO TXP None Family History Problem Relation Age of Onset Fibromyalgia Mother Heart disease Father Hypertension Sister Polycystic kidney disease Sister Hypertension Brother Polycystic kidney disease Brother Family Status - Relation Status Age at Mother Alive Father Sister Brother Level of Service:87635 [place] OFFICE/OUTPATIENT ESTABLISHED MOD MDM 30 MIN Reason for Visit and Comments: Kidney Follow-up [] - Pt has been having pains where her old kidney is. Her abd is also swollen since April. She also has concerns about her Tac level being in the low 5's.[facility] HospitalALL CBC WITH AUTO DIFFon [id number] ABSOLUTE AUTO0.1NOMS Healthcare Basophils/100 WBC (Bld)0.8 %0.2 - 2.0 %NOMS HealthcareEosinophils/100 WBC (Bld) 4.7 %0.9 - 7.0 %NOMS HealthcareErythrocyte distribution width (RBC) [Ratio]14.1 %11.0 - 15.0 %NOMS HealthcareHematocrit (Bld) [Volume fraction]40 %36.0 - 48.0 % NOMS HealthcareHemoglobin (Bld) [Mass/Vol]13.8 g/dL12.0 - 16.0 g/dLNOSC HealthcareIMMATURE GRANULOCYTES ABS AUTO0.06HighNOMS HealthcareImmature granulocytes/100 WBC (Bld)0.7 %High0.0 - 0.5 %NOMS HealthcareInterpretation and review of laboratory resultsAbnormalNOMS HealthcareLYMPHOCYTES ABSOLUTE AUTO1.8 NOMS HealthcareLymphocytes/100 WBC (Bld)21.5 %20.5 - 60.0 %NOMS [facility] HospitalH (RBC) [Entitic mass]29.7 pg26.7 - 34.0 pgNOMS [facility] (RBC) [Mass/Vol] 34.5 g/dL29.9 - 35.2 g/dLNOMS HealthcareMCV (RBC) [Entitic vol]86 fL81.0 - 99.0 fLNOSC HealthcareMONOCYTES ABSOLUTE AUTO0.5NOMS HealthcareMonocytes/100 WBC (Bld)5.9 %1.7 - 12.0 %NOMS HealthcareNEUTROPHILS ABSOLUTE AUTO5.6NOMS Healthcare Neutrophils/100 WBC (Bld)66.4 %43.0 - 75.0 %NOMS HealthcarePlatelet mean volume (Bld) [Entitic vol]8.4 fLLow9.5 - 13.5 fLNOSC HealthcareTBH EO #0.4NOMS HealthcareTBH [id number] HealthcareTBH RBC4.65NOMS HealthcareTBH WBC8.4NOSC HealthcareCLINISYNCNOMS HealthcareALL MAGNESIUMon 55-91-0173Hvrqnqjuw [Mass/Vol] 1.5 mg/dLLow1.8 - 2.4 mg/dLNOSC HealthcareALL PHOSPHOROUSon 95-78-7384Tqhmtzinp [Mass/Vol]3.7 mg/dL2.6 - 4.7 mg/dLNOSC HealthcareALL URIC ACIDon 21-22-6063Ooxqf [Mass/Vol]4 mg/dL2.6 - 6.0 mg/dLNOMercy hospital springfieldCCF CMP (CMP) (FOR REMOTE [facility] USE)on 36-85-9552Mahkfal [Mass/Vol]3.8 g/dL3.4 - 5.0 g/dLNOSC HealthcareALBUMIN GLOBULIN RATIO0.9NOSC HealthcareALP [Catalytic activity/Vol]88 U/L46 - 116 U/L NOMS HealthcareALT [Catalytic activity/Vol]24 U/L14 - 59 U/LNOMS HealthcareAnion gap [Moles/Vol]12.1 mmol/LNOMS HealthcareAST [Catalytic activity/Vol]19 U/L15 - 37 U/LNOMS HealthcareBilirubin [Mass/Vol]0.4 mg/dL0.2 - 1.0 mg/dLNOSC Healthcare Calcium [Mass/Vol]9.3 mg/dL8.5 - 10.1 mg/dLNOSC HealthcareChloride [Moles/Vol] 104 mmol/L98 - 107 mmol/LNOMS HealthcareCO2 [Moles/Vol]27.1 mmol/L21.0 - 32.0 mmol/LNOMS HealthcareCreatinine [Mass/Vol]1.17 mg/dLHigh0.55 - 1.02 mg/dLNOMS HealthcareGFR/1.73 sq M.predicted CKD-EPI (S/P/Bld) [Vol rate/Area]60>=60 mL/min/1.73m 2NOMS HealthcareGlobulin (S) [Mass/Vol]4 g/dLNOMS HealthcareGlucose [Mass/Vol]91 mg/dL74 - 106 mg/dLNOSC HealthcarePotassium [Moles/Vol]3.2 mmol/L Low3.5 - 5.1 mmol/LNOMS HealthcareProtein [Mass/Vol]7.8 g/dL6.4 - 8.2 g/dLNOSC HealthcareSodium [Moles/Vol]140 mmol/L136 - 145 mmol/LNOMS HealthcareTBH EGFR- NON AF [id number]>=60 mL/min/1.73m 2NOMS HealthcareUrea nitrogen [Mass/Vol]14 mg/dL7.0 - 18.0 mg/dLNOSC HealthcareUrea nitrogen/Creatinine [Mass ratio]12 mg/mgNOSC HealthcareMETRO BILIRUBIN, DIRECTon [id number].indirect [Mass/Vol]0.1 mg/dL0.0 - 0.2 mg/dLNOSC HealthcareNo Panel Informationon 34-87-1922Xkgadzxikhbtth and review of laboratory resultsAbnormalNOMercy hospital springfield CLINISYNCNOSC HealthcareALL CBC WITH AUTO DIFFon [id number] ABSOLUTE IUTT4QNXS HealthcareBasophils/100 WBC (Bld)0.5 %0.2 - 2.0 %NOMS Healthcare Eosinophils/100 WBC (Bld)3.8 %0.9 - 7.0 %NOMS HealthcareErythrocyte distribution width (RBC) [Ratio]13.9 %11.0 - 15.0 %NOMS HealthcareHematocrit (Bld) [Volume fraction]39.4 %36.0 - 48.0 %NOMS HealthcareHemoglobin (Bld) [Mass/Vol]13.4 g/dL 12.0 - 16.0 g/dLNOMercy hospital springfieldIMMATURE GRANULOCYTES ABS AUTO0.03NOMercy [facility] Immature granulocytes/100 WBC (Bld)0.4 %0.0 - 0.5 %NOMS HealthcareInterpretation and review of laboratory resultsAbnormalNOMercy hospital springfieldLYMPHOCYTES ABSOLUTE AUTO1.5NOMercy hospital springfieldLymphocytes/100 WBC (Bld)18.3 %Low20.5 - 60.0 %[facility] HospitalH (RBC) [Entitic mass]29.4 pg26.7 - 34.0 pgProgress West HospitalHC (RBC) [Mass/Vol]34 g/dL29.9 - 35.2 g/dLProgress West HospitalV (RBC) [Entitic vol]86.4 fL 81.0 - 99.0 fLCrittenton Behavioral HealthMONOCYTES ABSOLUTE AUTO0.4[facility] Monocytes/100 WBC (Bld)5.2 %1.7 - 12.0 %[facility] HealthNEUTROPHILS ABSOLUTE AUTO 5.9NOMercy hospital springfieldNeutrophils/100 WBC (Bld)71.8 %43.0 - 75.0 %[facility] Platelet mean volume (Bld) [Entitic vol]8.6 fLLow9.5 - 13.5 fLCrittenton Behavioral HealthTB EO #0.3NOSaint [facility]'s Hospital TTA736LMIUSaint John's Hospital RBC4.56NOSaint John's Hospital WBC 8.1NOMS [facility] HospitalCLINISYNCNSaint Joseph [facility] Center MAGNESIUMon [id number] [Mass/Vol]1.8 mg/dL1.8 - 2.4 mg/dL[facility] PHOSPHOROUSon 04-02-2025 Phosphate [Mass/Vol]3.5 mg/dL2.6 - 4.7 mg/dLWestern [facility] URIC ACIDon 27-42-8103Nmrqz [Mass/Vol]5 mg/dL2.6 - 6.0 mg/dLWashington [facility] CMP (CMP) (FOR REMOTE [facility] USE)on 66-93-1363Jcrlznn [Mass/Vol]3.8 g/dL3.4 - 5.0 g/dLCrittenton Behavioral HealthALBUMIN GLOBULIN MENHD7FOIDMercy hospital springfieldALP [Catalytic activity/Vol]90 U/L46 - 116 U/LNOMS HealthcareALT [Catalytic activity/Vol]22 U/L14 - 59 U/LNOMS HealthcareAnion gap [Moles/Vol]15.7 mmol/LNALLIANCEHEALTH [facility] [place] HealthcareAST [Catalytic activity/Vol]16 U/L15 - 37 U/LNOMS HealthcareBilirubin [Mass/Vol]0.4 mg/dL0.2 - 1.0 mg/dLNOSC HealthcareCalcium [Mass/Vol]9.3 mg/dL8.5 - 10.1 mg/dLNOSC HealthcareChloride [Moles/Vol]105 mmol/L98 - 107 mmol/LNOMS HealthcareCO2 [Moles/Vol]24.5 mmol/L21.0 - 32.0 mmol/LNOMS HealthcareCreatinine [Mass/Vol]1.18 mg/dLHigh0.55 - 1.02 mg/dLNOMS HealthcareGFR/1.73 sq M.predicted CKD-EPI (S/P/Bld) [Vol rate/Area]59Low>=60 mL/min/1.73m 2NOMS HealthcareGlobulin (S) [Mass/Vol]3.9 g/dLNOSC HealthcareGlucose [Mass/Vol]114 mg/dWUuwe23 - 106 mg/dL NOM HealthcareInterpretation and review of laboratory resultsAbnormalNOSC HealthcarePotassium [Moles/Vol]3.2 mmol/LLow3.5 - 5.1 mmol/LNOMS Healthcare Protein [Mass/Vol]7.7 g/dL6.4 - 8.2 g/dLNOSC HealthcareSodium [Moles/Vol]142 mmol/L136 - 145 mmol/LNOMS HealthcareTBH EGFR-NON AF [id number]>=60 mL/min/1.73m 2NOMS HealthcareUrea nitrogen [Mass/Vol]14 mg/dL7.0 - 18.0 mg/dL NOM HealthcareUrea nitrogen/Creatinine [Mass ratio]11.9 mg/mgNOMercy hospital springfield METRO BILIRUBIN, DIRECTon [id number].indirect [Mass/Vol]0.1 mg/dL0.0 - 0.2 mg/dLNOSC HealthcareNo Panel Informationon [id number] HealthcareALL CBC WITH AUTO DIFFon [id number] ABSOLUTE AUTO0.1NOMS HealthcareBasophils/100 WBC (Bld)0.8 %0.2 - 2.0 %NOMS HealthcareEosinophils/100 WBC (Bld)4.3 %0.9 - 7.0 %NOMS HealthcareErythrocyte distribution width (RBC) [Ratio]14.6 %11.0 - 15.0 %NOMS HealthcareHematocrit (Bld) [Volume fraction]39.6 %36.0 - 48.0 %NOM HealthcareHemoglobin (Bld) [Mass/Vol]13.2 g/dL12.0 - 16.0 g/dLNOSC HealthcareIMMATURE GRANULOCYTES ABS AUTO0.03NOSC HealthcareImmature granulocytes/100 WBC (Bld)0.4 %0.0 - 0.5 %NOM HealthcareInterpretation and review of laboratory resultsAbnormalNOSC HealthcareLYMPHOCYTES ABSOLUTE AUTO1.5 NOM HealthcareLymphocytes/100 WBC (Bld)20.1 %Low20.5 - 60.0 %[facility] HospitalH (RBC) [Entitic mass]28.9 pg26.7 - 34.0 pgNOSSM Saint Mary's Health CenterHC (RBC) [Mass/Vol] 33.3 g/dL29.9 - 35.2 g/dLNOMercy hospital springfieldMCV (RBC) [Entitic vol]86.8 fL81.0 - 99.0 fLNOSC HealthcareMONOCYTES ABSOLUTE AUTO0.4NOSC HealthcareMonocytes/100 WBC (Bld)5.4 %1.7 - 12.0 %NOM HealthcareNEUTROPHILS ABSOLUTE AUTO5.2NOMS Healthcare Neutrophils/100 WBC (Bld)69 %43.0 - 75.0 %[facility] HealthcarePlatelet mean volume (Bld) [Entitic vol]8.5 fLLow9.5 - 13.5 fLNOSC HealthcareTBH EO #0.3NOMS HealthcareTB [id number] HealthcareTB RBC4.56NOMS HealthcareTB WBC7.5NOSC HealthcareCLINISYNCNOMS HealthcareOrders Onlyon [id number] [id number] Mandeep Puri 1975 F Date Provider Department Center 02/02/2025 [id number] LOMAX None Family History Problem Relation Age of Onset Fibromyalgia Mother Heart disease Father Hypertension Sister Polycystic kidney disease Sister Hypertension Brother Polycystic kidney disease Brother Family Status - Relation Status Age at Mother Alive Father Sister BrotherNormalUniversity of [facility]36on [id number] called into the office requesting a refill [...] up to be sent over upon your approval.[facility] HospitalRefillon [id number] Mandeep Puri 1975 F Date Provider Department Center 01/31/2025 ANDERSON GOODWIN None Family History Problem Relation Age of Onset Fibromyalgia Mother Heart disease Father Hypertension Sister Polycystic kidney disease Sister Hypertension Brother Polycystic kidney disease Brother Family Status - Relation Status Age at Mother Alive Father Sister Brother Reason for Visit and Comments: Med Refill [[id number]] Med Management [[id number]][facility] HospitalALL CBC WITH AUTO DIFFon [id number] ABSOLUTE AUTO0.1NOMS HealthcareBasophils/100 WBC (Bld)0.7 %0.2 - 2.0 %NOMS HealthcareEosinophils/100 WBC (Bld)2.7 %0.9 - 7.0 %NOMS HealthcareErythrocyte distribution width (RBC) [Ratio]14.5 %11.0 - 15.0 % NOMS HealthcareHematocrit (Bld) [Volume fraction]41.9 %36.0 - 48.0 %NOM HealthcareHemoglobin (Bld) [Mass/Vol]13.9 g/dL12.0 - 16.0 g/dLNOMercy hospital springfield IMMATURE GRANULOCYTES ABS AUTO0.03NOMS HealthcareImmature granulocytes/100 WBC (Bld)0.4 %0.0 - 0.5 %NOMS HealthcareInterpretation and review of laboratory resultsAbnormalNOSC HealthcareLYMPHOCYTES ABSOLUTE AUTO1.6NOMS Healthcare Lymphocytes/100 WBC (Bld)19.1 %Low20.5 - 60.0 %NOMCox NorthH (RBC) [Entitic mass]28.7 pg26.7 - 34.0 pgNOSSM Saint Mary's Health CenterHC (RBC) [Mass/Vol]33.2 g/dL29.9 - 35.2 g/dLNOMS HealthcareMCV (RBC) [Entitic vol]86.4 fL81.0 - 99.0 fLNOMS HealthcareMONOCYTES ABSOLUTE AUTO0.6NOMS HealthcareMonocytes/100 WBC (Bld)6.4 % 1.7 - 12.0 %NOMS HealthcareNEUTROPHILS ABSOLUTE [id number] Healthcare Neutrophils/100 WBC (Bld)70.7 %43.0 - 75.0 %NOMS HealthcarePlatelet mean volume (Bld) [Entitic vol]8.6 fLLow9.5 - 13.5 fLNOMS HealthcareTBH EO #0.2NOMS HealthcareTBH [id number] HealthcareTBH RBC4.85NOMS HealthcareTBH WBC8.5NOMS HealthcareCLINISYNCNOMS HealthcareDocumentationon [id number] [id number] Mandeep Puri 1975 F Date Provider Department Center 12/14/2024 LuigiANDERSON DEL RIO None Family History Problem Relation Age of Onset Fibromyalgia Mother Heart disease Father Hypertension Sister Polycystic kidney disease Sister Hypertension Brother Polycystic kidney disease Brother Family Status - Relation Status Age at Mother Alive Father Sister Brother Reason for Visit and Comments: Results [95]NormalMercy Health St. Elizabeth Boardman HospitalALL CBC WITH AUTO DIFFon [id number] ABSOLUTE YCTE6DYGN HealthcareBasophils/100 WBC (Bld)0.6 %0.2 - 2.0 %NOMS HealthcareEosinophils/100 WBC (Bld)5 %0.9 - 7.0 %NOMS Healthcare Erythrocyte distribution width (RBC) [Ratio]15.1 %High11.0 - 15.0 %NOMS HealthcareHematocrit (Bld) [Volume fraction]38.9 %36.0 - 48.0 %NOMS Healthcare Hemoglobin (Bld) [Mass/Vol]12.5 g/dL12.0 - 16.0 g/dLNOSC HealthcareIMMATURE GRANULOCYTES ABS AUTO0.04HighNOSC HealthcareImmature granulocytes/100 WBC (Bld) 0.6 %High0.0 - 0.5 %NOMS HealthcareInterpretation and review of laboratory resultsAbnormalNOSC HealthcareLYMPHOCYTES ABSOLUTE AUTO1.1LowNOMS Healthcare Lymphocytes/100 WBC (Bld)17.6 %Low20.5 - 60.0 %[facility] HospitalH (RBC) [Entitic mass]27.8 pg26.7 - 34.0 pgProgress West HospitalHC (RBC) [Mass/Vol]32.1 g/dL29.9 - 35.2 g/dLProgress West HospitalV (RBC) [Entitic vol]86.6 fL81.0 - 99.0 fLJORDAN VALLEY [facility] HealthcareMONOCYTES ABSOLUTE AUTO0.4NOSC HealthcareMonocytes/100 WBC (Bld)5.4 % 1.7 - 12.0 %[facility] HealthNEUTROPHILS ABSOLUTE AUTO4.6NOMS Healthcare Neutrophils/100 WBC (Bld)70.8 %43.0 - 75.0 %[facility] HealthPlatelet mean volume (Bld) [Entitic vol]8.7 fLLow9.5 - 13.5 fLNOMS HealthcareTBH EO #0.3NOMS HealthcareTB [id number] HealthcareTB RBC4.49NOMS HealthcareTBH WBC6.4NOMS HealthcareCLINISYNCNOMS HealthcareRefillon [id number] KhushiMandeep 1975 F Date Provider Department Center 11/25/2024 00531-VSWFQAARIK JENKINS TXP None Family History Problem Relation Age of Onset Fibromyalgia Mother Heart disease Father Hypertension Sister Polycystic kidney disease Sister Hypertension Brother Polycystic kidney disease Brother Family Status - Relation Status Age at Mother Alive Father Sister BrotherNormalUniversAultman Orrville HospitalFollow-Upon [id number]-Up [id number] KhushiMandeep 1975 F Date Provider Department Center 11/12/2024 [id number]-KALTMSHLEO KHAN TXP None Family History Problem Relation Age of Onset Fibromyalgia Mother Heart disease Father Hypertension Sister Polycystic kidney disease Sister Hypertension Brother Polycystic kidney disease Brother Family Status - Relation Status Age at Mother Alive Father Sister Brother Level of Service:50151 [place] OFFICE/OUTPATIENT ESTABLISHED MOD MDM 30 MIN Reason for Visit and Comments: Kidney Follow-up [] - Pt has reoccurring uti's x7 months. She is going to ID to be checked. She would like a standing lab order for a ua.Normal [facility] HospitalOrders Onlyon [id number] [id number] Mandeep Puri 1975 F Date Provider Department Center 10/21/2024 1971-LU STEPHENS None Family History Problem Relation Age of Onset Fibromyalgia Mother Heart disease Father Hypertension Sister Polycystic kidney disease Sister Hypertension Brother Polycystic kidney disease Brother Family Status - Relation Status Age at Mother Father Sister BrotherNormalUniversity Tuscarawas HospitalALL URINALYSISon 10-14-2024 BILIRUBIN URINENegativeNEGATIVENOMS HealthcareBLOOD URINETRACE-INEGATIVENOMS HealthcareClarity (U)CLEARCLEARNOMS HealthcareColor (U)LT. YELLOWYELLOWNOMS HealthcareGLUCOSE URINE UANegativeNEGATIVE mg/dLNOMS HealthcareInterpretation and review of laboratory resultsAbnormalNOMS HealthcareKetones Ql (U)Negative NEGATIVE mg/dLNOMS HealthcareLeukocyte esterase Test strip Ql (U)LARGEAbnormal NEGATIVENOMS HealthcareNITRITE URINEPositiveAbnormalNEGATIVENOMS HealthcarepH (U)7.5 [pH]5.0 - 9.0NOMS HealthcarePROTEIN URINENegativeNEG/TRACE mg/dLNOMS HealthcareSPECIFIC GRAVITY URINE1.0151.005 - 1.025NOMS HealthcareUROBILINOGEN URINE0.2 EU/dL0.2 - 1.0 EU/dLNOMS HealthcareCLINISYNCNOMS HealthcareUrine Cultureon [id number] identified Cx Nom (U)ORGANISM: Escherichia coli (MDRO) (O:ESCCOLMDRO) [place] Count >100,000 Aerobic CODI Charge (NMIC56) SUSCEPTIBILITY [...] RESISTANT TO ALL B-LACTAM DRUGS. PERFORMED BY: [place] [address] PATHOLOGIST OIL MIXER DOM MARIEE M.D.[facility] Physician GroupComment on above: Performed By: #### CUU #### [place] [address] USAALL MAGNESIUMon 02-21-2350Nuupqfhks [Mass/Vol]1.8 mg/dL1.8 - 2.4 mg/dLNOMercy hospital springfieldALL PHOSPHOROUSon 29-42-6463Jfnurecix [Mass/Vol]3.9 mg/dL2.6 - 4.7 mg/dLCrittenton Behavioral HealthALL URIC ACIDon [id number] [Mass/Vol]4.2 mg/dL2.6 - 6.0 mg/dLNOSC HealthcareCCF CMP (CMP) (FOR REMOTE [facility] USE)on 12-16-4182Ntthkpi [Mass/Vol]3.3 g/dLLow3.4 - 5.0 g/dLNOSC HealthcareALBUMIN GLOBULIN RATIO0.8NOSC HealthcareALP [Catalytic activity/Vol]84 U/L46 - 116 U/L NOMS HealthcareALT [Catalytic activity/Vol]13 U/LLow14 - 59 U/LNOMS Healthcare Anion gap [Moles/Vol]14.6 mmol/LNOMS HealthcareAST [Catalytic activity/Vol]11 U/LLow15 - 37 U/LNOMS HealthcareBilirubin [Mass/Vol]0.3 mg/dL0.2 - 1.0 mg/dLNOSC HealthcareCalcium [Mass/Vol]9.3 mg/dL8.5 - 10.1 mg/dLNOSC HealthcareChloride [Moles/Vol]105 mmol/L98 - 107 mmol/LNOMS HealthcareCO2 [Moles/Vol]25 mmol/L21.0 - 32.0 mmol/LNOMS HealthcareCreatinine [Mass/Vol]1.37 mg/dLHigh0.55 - 1.02 mg/dL NOM HealthcareGFR/1.73 sq M.predicted CKD-EPI (S/P/Bld) [Vol rate/Area]50Low >=60 mL/min/1.73m 2[facility] HealthcareGlobulin (S) [Mass/Vol]4.2 g/dLNOMercy hospital springfield Glucose [Mass/Vol]102 mg/dL74 - 106 mg/dLNOSC HealthcareInterpretation and review of laboratory resultsAbnormalNOSC HealthcarePotassium [Moles/Vol]3.6 mmol/L3.5 - 5.1 mmol/LNOMS HealthcareProtein [Mass/Vol]7.5 g/dL6.4 - 8.2 g/dL [facility] HealthcareSodium [Moles/Vol]141 mmol/L136 - 145 mmol/LNOMS HealthcareTBH EGFR-NON AF [id number]>=60 mL/min/1.73m 2[facility] [place] [place] HealthcareUrea nitrogen [Mass/Vol]17 mg/dL7.0 - 18.0 mg/dLNOMercy hospital springfieldUrea nitrogen/Creatinine [Mass ratio]12.4 mg/mgNOMercy hospital springfieldMETRO BILIRUBIN, DIRECTon 10-02-2024 Bilirubin.indirect [Mass/Vol]0.1 mg/dL0.0 - 0.2 mg/dLCrittenton Behavioral HealthNo Panel Informationon [id number] HealthcareALL CBC WITH AUTO DIFFon [id number] ABSOLUTE OIVU7CHGH HealthcareBasophils/100 WBC (Bld)0.3 %0.2 - 2.0 %NOMS HealthcareEosinophils/100 WBC (Bld)2.8 %0.9 - 7.0 %[facility] Erythrocyte distribution width (RBC) [Ratio]14.5 %11.0 - 15.0 %[facility] Hematocrit (Bld) [Volume fraction]34.4 %Low36.0 - 48.0 %[facility] Hemoglobin (Bld) [Mass/Vol]10.9 g/dLLow12.0 - 16.0 g/dLCrittenton Behavioral HealthIMMATURE GRANULOCYTES ABS AUTO0.03NOMercy hospital springfieldImmature granulocytes/100 WBC (Bld)0.4 % 0.0 - 0.5 %[facility] HealthInterpretation and review of laboratory results AbnormalCrittenton Behavioral HealthLYMPHOCYTES ABSOLUTE AUTO1.2NOMS [facility] Lymphocytes/100 WBC (Bld)15.4 %Low20.5 - 60.0 %[facility] HospitalH (RBC) [Entitic mass]27.5 pg26.7 - 34.0 pgSac-[facility] (RBC) [Mass/Vol]31.7 g/dL29.9 - 35.2 g/dLProgress West HospitalV (RBC) [Entitic vol]86.9 fL81.0 - 99.0 fLCrittenton Behavioral HealthMONOCYTES ABSOLUTE AUTO0.5NOMercy hospital springfieldMonocytes/100 WBC (Bld)6.2 % 1.7 - 12.0 %[facility] HealthNEUTROPHILS ABSOLUTE AUTO5.7[facility] Neutrophils/100 WBC (Bld)74.9 %43.0 - 75.0 %[facility] HealthPlatelet mean volume (Bld) [Entitic vol]8.5 fLLow9.5 - 13.5 fLCrittenton Behavioral HealthTB EO #0.2NOMS [facility] [id number] [facility] RBC3.96LowNOSaint John's Hospital WBC7.6NOMercy hospital springfieldCLINISYNCNCox NorthALL LIPID PROFILE (FASTING)on [id number] HDL RATIO3.6NOSC HealthcareComment on above:3.3 - 4.4 LOW RISK 4.4 - 7.1 AVERAGE RISK 7.1 - 11.0 MODERATE RISK >11.0 HIGH RISK Cholesterol [Mass/Vol]175 mg/dLNINF - 200 mg/dLCrittenton Behavioral HealthCholesterol in HDL [Mass/Vol]49 mg/dL40 - 60 mg/dLJORDAN VALLEY [facility] HealthcareComment on above:> or =60 mg/dl - LOW CARDIOVASCULAR RISK <40 mg/dl - HIGH CARDIOVASCULAR RISK Magnesium [Mass/Vol]99.6 mg/dLNOSC HealthcareComment on above:<100 mg/dl OPTIMAL 100-129 mg/dl NEAR OR ABOVE OPTIMAL 130-159 mg/dl BORDERLINE HIGH 160-189 mg/dl HIGH >190 mg/dl VERY HIGH Magnesium [Mass/Vol]26.4 mg/dLNOMS HealthcareTriglyceride [Mass/Vol]132 mg/dL NINF - 150 mg/dLNOSC HealthcareALL MAGNESIUMon 12-05-8017Trisjghtv [Mass/Vol]1.9 mg/dL1.8 - 2.4 mg/dLNOSC HealthcareALL PHOSPHOROUSon 10-17-7823Hemifomiv [Mass/Vol]3.7 mg/dL2.6 - 4.7 mg/dLNOSC HealthcareALL URIC ACIDon 32-20-5377Jgwta [Mass/Vol]4 mg/dL2.6 - 6.0 mg/dLNOSC HealthcareCCF CMP (CMP) (FOR REMOTE [facility] USE)on 71-17-3262Tdsonxx [Mass/Vol]3.4 g/dL3.4 - 5.0 g/dLNOSC HealthcareALBUMIN GLOBULIN RATIO0.8NOSC HealthcareALP [Catalytic activity/Vol]86 U/L46 - 116 U/L NOMS HealthcareALT [Catalytic activity/Vol]19 U/L14 - 59 U/LNOMS HealthcareAnion gap [Moles/Vol]17.2 mmol/LNOMS HealthcareAST [Catalytic activity/Vol]11 U/LLow15 - 37 U/LNOMS HealthcareBilirubin [Mass/Vol]0.4 mg/dL0.2 - 1.0 mg/dLNOSC HealthcareCalcium [Mass/Vol]9.3 mg/dL8.5 - 10.1 mg/dLNOSC HealthcareChloride [Moles/Vol]104 mmol/L98 - 107 mmol/LNOMS HealthcareCO2 [Moles/Vol]24.6 mmol/L 21.0 - 32.0 mmol/LNOMS HealthcareCreatinine [Mass/Vol]1.34 mg/dLHigh0.55 - 1.02 mg/dLNOSC HealthcareGFR/1.73 sq M.predicted CKD-EPI (S/P/Bld) [Vol rate/Area]51 Low>=60 mL/min/1.73m 2NOMS HealthcareGlobulin (S) [Mass/Vol]4.2 g/dLNOMS HealthcareGlucose [Mass/Vol]98 mg/dL74 - 106 mg/dLNOMS HealthcareInterpretation and review of laboratory resultsAbnormalNOMS HealthcarePotassium [Moles/Vol]3.8 mmol/L3.5 - 5.1 mmol/LNOMS HealthcareProtein [Mass/Vol]7.6 g/dL6.4 - 8.2 g/dL NOMS HealthcareSodium [Moles/Vol]142 mmol/L136 - 145 mmol/LNOMS HealthcareTBH EGFR-NON AF [id number]>=60 mL/min/1.73m 2NOMS HealthcareUrea nitrogen [Mass/Vol]16 mg/dL7.0 - 18.0 mg/dLNOMS HealthcareUrea nitrogen/Creatinine [Mass ratio]11.9 mg/mgNOSC HealthcareMETRO BILIRUBIN, DIRECTon 08-31-2024 Bilirubin.indirect [Mass/Vol]0.1 mg/dL0.0 - 0.2 mg/dLNOSC HealthcareMLR HEMOGLOBIN A1Con 46-22-9424Cqyuece [Mass/Vol]103 mg/dLNOMercy hospital springfieldOqroglsgoqMtB3h (Bld) [Mass fraction]5.2 %4.5 - 6.2 %NOMS HealthcareComment on above:ADA RECOMMENDED LIMIT 4.0 - 6.0 ADA THERAPEUTIC TARGET < 7.0 ACTION SUGGESTED > 7.0 CLINISYNCNOSC HealthcareNo Panel Informationon 82-13-9104JDXCBPFLXDZZQ HealthcareMM screening mammo BI w/CADon 84-68-9765RY screening mammo BI w/[place] [address] Mammography Report Signed Patient: Mandeep Puri MR#: [id number] 15 : 1975 Acct:[id number] Age/Sex: 48 / F ADM Date: 08/25/24 Loc: [place] Room: Type: [facility] Attending Dr: Blake [...] Messina Jr., D.O.08/25/2024 3:24 PM Dictation Location: [facility] Transcribed By: [facility] 08/25/24 1524 Dictated By: Evan Messina Jr, DO 08/25/24 1523 Signed By: 08/25/24 [facility]ician GroupMammography reportOrdered By: Evan Messina on 09-63-8728Csuhtwoayk imaging [facility] [address] [place] [address] Mammography Report Signed Patient: Mandeep Puri MR#: [id number] : 1975 Acct:[id number] Age/Sex: 48 / F ADM Date: 4 Loc: [place] Room: Type: [facility] Attending Dr: Blake [...] Messina Jr., D.OSon08/25/2024 3:24 PM Dictation Location: [facility] Transcribed By: SALMA 08/25/241523 Dictated By: Evan Messina Jr, DO 08/25/24 152 Signed By: 08/25/24 152 [facility] HospitalCA 125on 58-39-7227QAACZU ANTIGEN 62266.90.0 - 38.1NOMS HealthcareComment on above:[employer] Electrochemiluminescence Immunoassay (ECLIA) Values obtained with different assay methods or kits cannot be used interchangeably. Results cannot be interpreted as absolute evidence of the presence or absence of malignant disease. Performed at: [address] [id number] Checker In: Gabriel Whitman PhD, Phone: [phone] [facility]24 hour urine albumin/total protein ratio by electrophoresis Ordered By: Jesus Ayala on 10-08-0361Ubctqjk Elph (24H U) [Mass fraction] Albumin/Protein.total in 24 hour Urine by Electrophoresis.[facility]24 hour urine gamma globulin/total protein ratio by electrophoresisOrdered By: Jesus Ayala on 76-42-5778Inlmf globulin Elph (24H U) [Mass fraction]Gamma globulin/Protein.total in 24 hour Urine by Electrophoresis.[facility]24 hour urine protein monoclonal/total protein by electrophoresisOrdered By: Jesus Ayala on 15-10-7143Nseuytf.monoclonal Elph (24H U) [Mass fraction] Protein.monoclonal/Protein.total in 24 hour Urine by ElectrophoresisNot Observed [facility] HospitalAlanine aminotransferase [Enzymatic activity/volume] in Serum or PlasmaOrdered By: Jesus Gruberrow on 89-35-4688NIM [Catalytic activity/Vol]11 U/LNormalDayton Osteopathic HospitalComment on above:Performed By: #### ESR, CK, ADDONUAPLUS, CMP, CRP, T4F, TSH3, CBC #### [facility] [address] [place] [address] [place] #### ALDOLASE, CAMILLA SERUM, SPE, CAMILLA,URINE, UPE RAND #### [facility] ,ALT [Catalytic activity/Vol]Alanine aminotransferase [Enzymatic activity/volume] in Serum or PlasmaDayton Osteopathic HospitalAlbumin [Mass/volume] in Serum or Plasma by Bromocresol green (BCG) dye binding metho Ordered By: Jesus Ayala on 47-15-4716Myvrxbd BCG dye [Mass/Vol]4.3 g/dL 3.5-5.7FMercy Memorial HospitalAlbumin BCG dye [Mass/Vol]Albumin [Mass/volume] in Serum or Plasma by Bromocresol green (BCG) dye binding metho 3.5-5.7FMercy Memorial HospitalAldolaseon 18-38-4727Smyxeilk0.5 U/L Normal3.3-10.3The [facility] Physician GroupComment on above:Result Comment: Performed at: - [facility] [address] [id number] Checker In: Gabriel Whitman PhD, Phone: [phone] PERFORMED BY: [place] [address] PATHOLOGIST OIL MIXER ANAHY MCKEE M.D.Performed By: #### CEA #### [facility] [address] [place] [address] [place] #### CA125 #### [facility] ,Alkaline phosphatase [Enzymatic activity/volume] in Serum or PlasmaOrdered By: Jesus Ayala on 75-55-8120XCN [Catalytic activity/Vol]87 U/XWkqcbk19-010 [facility] HospitalComment on above:Performed By: #### ESR, CK, ADDONUAPLUS, CMP, CRP, T4F, TSH3, CBC #### [facility] [address] [place] [address] #### ALDOLASE, CAMILLA SERUM, SPE, CAMILLA,URINE, UPE RAND #### [facility] ,ALP [Catalytic activity/Vol]Alkaline phosphatase [Enzymatic activity/volume] in Serum or Mueumk28-951KpkwhnujmDayton Osteopathic HospitalAppearance of UrineOrdered By: Jesus Jamie on 93-05-8475Scycarolmy (U)Urine appearanceCleJoint Township District Memorial HospitalAspartate aminotransferase [Enzymatic activity/volume] in Serum or PlasmaOrdered By: Jesus Gruberrow on 78-45-8523CRP [Catalytic activity/Vol]13 U/XWqzbkz04-36Cxjgsw[address] [place], [place] [address]Comment on above: Performed By: #### ESR, CK, ADDONUAPLUS, CMP, CRP, T4F, TSH3, CBC #### [facility] [address] [place] [address] #### ALDOLASE, CAMILLA SERUM, SPE, CAMILLA,URINE, UPE RAND #### [facility] ,AST [Catalytic activity/Vol]Aspartate aminotransferase [Enzymatic activity/volume] in Serum or Foswjc83-63Fgorckdgg[address] [place] [address] Automated basophil %Ordered By: Jesus Gruberrow on 06-74-2344Yppsnvmpu/100 WBC (Bld)0.6 %Normal.[facility] HospitalComment on above:Performed By: #### CEA #### [facility] [address] [place] [address] [place] #### CA125 #### [facility] ,Automated basophil countOrdered By: Jesus Gruberrow on 24-44-6350Mxjjdfyud (Bld) [#/Vol]0.0 10*3/uLNormal0.0-0.2FMercy Memorial HospitalComment on above:Performed By: #### CEA #### [facility] [address] [place] [address] [place] #### CA125 #### [facility] ,Automated blood monocyte countOrdered By: Jesus Gruberrow on 07-90-6402Eypujovit (Bld) [#/Vol]0.4 10*3/uLNormal0.0-0.8[facility]opathic HospitalComment on above:Performed By: #### CEA #### [facility] [address] [place] [address] [place] #### CA125 #### [facility] ,Automated eosinophil %Ordered By: Jesus Ayala on 66-98-6176Nxxelkqplnw/100 WBC (Bld)3.0 %Normal.[facility] HospitalComment on above:Performed By: #### CEA #### [facility] [address] [place] [address] [place] #### CA125 #### [facility] ,Automated eosinophil countOrdered By: Jesus Gruberrow on 17-68-9572Jcahufjbtmp (Bld) [#/Vol]0.2 10*3/uLNormal0.0-0.45[facility] HospitalComment on above:Performed By: #### CEA #### [facility] [address] [place] [address] [place] #### CA125 #### [facility] ,Automated epithelial cells count in urine sediment (number/area)Ordered By: Jesus Gruberrow on 36-38-0701Clhpbwxmvn cells Auto (Urine sed) [#/Area]5-9 [HPF] High02FMercy Memorial HospitalEpithelial cells Auto (Urine sed) [#/Area]Automated epithelial cells count in urine sediment (number/area)High0-2 [facility] HospitalAutomated erythrocytes count in urine sediment (number/area)Ordered By: Jesus Gruberrow on 67-13-0367AOZ Auto (Urine sed) [#/Area]Erythrocytes [#/area] in Urine sediment by Automated count0-4FMercy Memorial HospitalAutomated leukocytes count in urine sediment (number/area)Ordered By: Jesus Gruberrow on 24-86-9087YVX Auto (Urine sed) [#/Area]Leukocytes [#/area] in Urine sediment by Automated count0-4FMercy Memorial HospitalAutomated monocyte %Ordered By: Jesus Ayala on 55-73-8572Onaquddid/100 WBC (Bld)4.5 %Normal.[facility] Comment on above:Performed By: #### CEA #### [facility] [address] [place] [address] [place] #### CA125 #### [facility] ,Automated neutrophil %Ordered By: Jesus Ayala on 40-55-0989Tlfmccyuqil/100 WBC (Bld)76.9 %Normal.[facility] HospitalComment on above: Performed By: #### CEA #### [facility] [address] [place] [address] [place] #### CA125 #### [facility] ,Bacteria [Presence] in Urine by AutomatedOrdered By: Jesus Ayala on 52-40-5685Oqpgnudi Auto Ql (U)None seen [HPF]None SeenDayton Osteopathic HospitalBasophils Auto (Bld) [#/Vol]Ordered By: Jesus Ayala on 08-02-2024 Basophils (Bld) [#/Vol]Automated basophil count0.0-0.2FMercy Memorial HospitalBasophils/100 WBC Auto (Bld)Ordered By: Jesus Ayala on 08-02-2024 Basophils/100 WBC (Bld)Automated basophil %.[facility] Bilirubin Test strip Ql (U)Ordered By: Jesus Ayala on 84-87-0365Rhufehoea Ql (U)NegativeNegativeDayton Osteopathic HospitalBilirubin Ql (U) Bilirubin.total [Presence] in Urine by Test stripNegativeDayton Osteopathic HospitalBilirubin.total [Mass/volume] in Serum or PlasmaOrdered By: Jesus Ayala on 20-76-9212Jjqatbybx [Mass/Vol]0.3 mg/dLNormal0.3-1.0[facility]opathic HospitalComment on above:Performed By: #### ESR, CK, ADDONUAPLUS, CMP, CRP, T4F, TSH3, CBC #### [facility] [address] #### ALDOLASE, CAMILLA SERUM, SPE, CAMILLA,URINE, UPE RAND #### [facility] ,Bilirubin [Mass/Vol]Bilirubin.total [Mass/volume] in Serum or Plasma0.3-1.0 [facility] HospitalC reactive protein [Mass/volume] in Serum or PlasmaOrdered By: Jesus Ayala on 42-63-4936YTB [Mass/Vol]1.7 mg/dLHigh0.0-0.5 [facility] HospitalCRP [Mass/Vol]C reactive protein [Mass/volume] in Serum or PlasmaHigh0.0-0.5FMercy Memorial HospitalC-Reactive Protein on 64-62-8087U-Reactive Protein1.7 mg/dLHigh0.0-0.5The [facility] Comment on above:Performed By: #### ESR, CK, ADDONUAPLUS, CMP, CRP, T4F, TSH3, CBC #### [facility] [address] #### ALDOLASE, CAMILLA SERUM, SPE, CAMILLA,URINE, UPE RAND #### [facility] ,CARCINOEMBRYONIC ANTIGENon 35-96-1359MDMPCrittenton Behavioral HealthCEA ser/plasOrdered By: Blake Hinojosa on 23-23-0013Aaglyfgbluqmdntu Ag [Mass/Vol]Serum or plasma carcinoembryonic antigen measurement (mass/volume)0.0-3.0[facility] HospitalComment on above:Serial tumor marker results determined by assays using different manufacturers or methods may not be comparable.[facility] container washer and method:RUSSELL UNICEL DXI, 2 SITE IMMUNOENZYMATIC SANDWICH ASSAY.Calcium [Mass/volume] in Serum or PlasmaOrdered By: Jesus Ayala on 62-25-7994Wimoiyu [Mass/Vol]9.8 mg/dLNormal8.6-10.3FMercy Memorial HospitalComment on above:Performed By: #### ESR, CK, ADDONUAPLUS, CMP, CRP, T4F, TSH3, CBC #### [facility] [address] #### ALDOLASE, CAMILLA SERUM, SPE, CAMILLA,URINE, UPE RAND #### [facility] ,Calcium [Mass/Vol]Calcium [Mass/volume] in Serum or Plasma8.6-10.3FMercy Memorial HospitalCancer Antigen 125on 14-54-6390Xeyguy Antigen 33215.9 Normal0.0-38.1The [facility] Health Physician GroupComment on above:Result Comment: [employer] Electrochemiluminescence Immunoassay (ECLIA) Values obtained with different assay methods or kits cannot be used interchangeably. Results cannot be interpreted as absolute evidence of the presence or absence of malignant disease. Performed at: [address] [id number] Checker In: Gabriel Whitman PhD, Phone: [phone] PERFORMED BY: [place] [address] PATHOLOGIST OIL MIXER ANAHY MCKEE M.D.Performed By: #### CEA #### [facility] [address] [place] [address] #### CA125 #### [facility] ,Carbon dioxide, total [Moles/volume] in Serum or PlasmaOrdered By: Jesus Ayala on 03-71-8941DG6 [Moles/Vol]24.6 mmol/IEydvfs26.0-31.0[facility]opathic HospitalComment on above:Performed By: #### ESR, CK, ADDONUAPLUS, CMP, CRP, T4F, TSH3, CBC #### [facility] [address] [place] [address] #### ALDOLASE, CAMILLA SERUM, SPE, CAMILLA,URINE, UPE RAND #### [facility] ,CO2 [Moles/Vol]Carbon dioxide, total [Moles/volume] in Serum or Ahtsau71.0-31.0 [facility]opathic HospitalChloride [Moles/volume] in Serum or Plasma Ordered By: Jesus Ayala on 87-10-8665Pcoulppa [Moles/Vol]105 mmol/LNormal 98-107Day[facility] Osteopathic HospitalComment on above:Performed By: #### ESR, CK, ADDONUAPLUS, CMP, CRP, T4F, TSH3, CBC #### [address] #### ALDOLASE, CAMILLA SERUM, SPE, CAMILLA,URINE, UPE RAND #### [facility] ,Chloride [Moles/Vol]Chloride [Moles/volume] in Serum or Axvuut18-359TpwqceytvDayton Osteopathic HospitalColor Auto (U)Ordered By: Jesus Ayala on 08-02-2024 Color (U)Color of Urine by AutoYellowDayton Osteopathic HospitalColor of Urine by AutoOrdered By: Jesus Ayala on 52-48-2004Prxqs (U)Light-yellowNormal ACMC Healthcare SystemComment on above:Order Comment: Name Collection Type:: Clean-Voided MidstreamPerformed By: #### ESR, CK, ADDONUAPLUS, CMP, CRP, T4F, TSH3, CBC #### [address] #### ALDOLASE, CAMILLA SERUM, SPE, CAMILLA,URINE, UPE RAND #### [facility] ,Complete Blood Count Auto Diffon 49-59-3265Esmg Corpuscular HGB Conc33.5 g/dL Ypsjnh73.0-35.0The [facility] Health Physician GroupComment on above:Performed By: #### CEA #### [place] [address] [place] #### CA125 #### [facility] ,NRBC%0.1 /100{WBC}Normal0-0.5The [facility] Health Physician GroupComment on above: Performed By: #### CEA #### [place] [address] [place] #### CA125 #### [facility] ,Comprehensive Metabolic Panelon 27-00-4724Xxmwxaq [Mass/Vol]4.3 g/dLNormal 3.5-5.7The [facility] Physician GroupComment on above:Performed By: #### ESR, CK, ADDONUAPLUS, CMP, CRP, T4F, TSH3, CBC #### [facility] [address] [place] [address] #### ALDOLASE, CAMILLA SERUM, SPE, CAMILLA,URINE, UPE RAND #### [facility] ,GFR/1.73 sq M.predicted MDRD (S/P/Bld) [Vol rate/Area]mL/min/{1.73_m2}NormalThe [facility] Health Physician GroupComment on above:Performed By: #### ESR, CK, ADDONUAPLUS, CMP, CRP, T4F, TSH3, CBC #### [address] #### ALDOLASE, CAMILLA SERUM, SPE, CAMILLA,URINE, UPE RAND #### [facility] ,Creatine kinase [Enzymatic activity/volume] in Serum or PlasmaOrdered By: Jesus Ayala on 26-84-7791YJ [Catalytic activity/Vol]39 U/IQmrzwc82-093 [facility] HospitalComment on above:Result Comment: PERFORMED BY: [place] [address] PATHOLOGIST OIL MIXER ANAHY MCKEE M.D.Performed By: #### ESR, CK, ADDONUAPLUS, CMP, CRP, T4F, TSH3, CBC #### [address] #### ALDOLASE, CAMILLA SERUM, SPE, CAMILLA,URINE, UPE RAND #### [facility] ,CK [Catalytic activity/Vol]Creatine kinase [Enzymatic activity/volume] in Serum or Sepszx72-763EudwixjsrDayton Osteopathic HospitalCreatinine [Mass/volume] in Serum or PlasmaOrdered By: Jesus Ayala on 54-66-5262Kmmlkhkjww [Mass/Vol]1.10 mg/dLNormal0.60-1.20[facility]opathic HospitalComment on above:Performed By: #### ESR, CK, ADDONUAPLUS, CMP, CRP, T4F, TSH3, CBC #### [address] #### ALDOLASE, CAMILLA SERUM, SPE, CAMILLA,URINE, UPE RAND #### [facility] ,Creatinine [Mass/Vol]Creatinine [Mass/volume] in Serum or Plasma0.60-1.20 [facility] CenterDipstick and Microscopicon 08-02-2024 Bacteria,UrineNone SeenNormalNone SeenMedical Center Clinic Physician GroupComment on above:Order Comment: Name Collection Type:: Clean-Voided MidstreamPerformed By: #### ESR, CK, ADDONUAPLUS, CMP, CRP, T4F, TSH3, CBC #### [address] #### ALDOLASE, CAMILLA SERUM, SPE, CAMILLA,URINE, UPE RAND #### [facility] ,Bilirubin,UrineNegativeNormalNegativeThe [facility] Health Physician GroupComment on above:Order Comment: Name Collection Type:: Clean-Voided MidstreamPerformed By: #### ESR, CK, ADDONUAPLUS, CMP, CRP, T4F, TSH3, CBC #### [address] #### ALDOLASE, CAMILLA SERUM, SPE, CAMILLA,URINE, UPE RAND #### [facility] ,Glucose Ql (U)50 mg/dLWalter E. Fernald Developmental CenteralThValor Health Physician GroupComment on above: Order Comment: Name Collection Type:: Clean-Voided MidstreamPerformed By: #### ESR, CK, ADDONUAPLUS, CMP, CRP, T4F, TSH3, CBC #### [address] #### ALDOLASE, CAMILLA SERUM, SPE, CAMILLA,URINE, UPE RAND #### [facility] ,Hyaline Casts,Evwdx1-6Nnoeee2-9Ubg [facility] Physician GroupComment on above: Order Comment: Name Collection Type:: Clean-Voided MidstreamResult Comment: PERFORMED BY: [place] [address] PATHOLOGIST OIL MIXER ANAHY MCKEE M.D.Performed By: #### ESR, CK, ADDONUAPLUS, CMP, CRP, T4F, TSH3, CBC #### [address] #### ALDOLASE, CAMILLA SERUM, SPE, CAMILLA,URINE, UPE RAND #### [facility] ,Nitrite,UrineNegativeNormalNegativeThe [facility] Health Physician GroupComment on above:Order Comment: Name Collection Type:: Clean-Voided MidstreamPerformed By: #### ESR, CK, ADDONUAPLUS, CMP, CRP, T4F, TSH3, CBC #### [address] #### ALDOLASE, CAMILLA SERUM, SPE, CAMILLA,URINE, UPE RAND #### [facility] ,Occult Blood,UrineNegativeNormalNegativeThe [facility] Physician GroupComment on above:Order Comment: Name Collection Type:: Clean-Voided MidstreamPerformed By: #### ESR, CK, ADDONUAPLUS, CMP, CRP, T4F, TSH3, CBC #### [address] #### ALDOLASE, CAMILLA SERUM, SPE, CAMILLA,URINE, UPE RAND #### [facility] ,Protein,UrineNegativeNormalNegativeThe [facility] Physician GroupComment on above:Order Comment: Name Collection Type:: Clean-Voided MidstreamPerformed By: #### ESR, CK, ADDONUAPLUS, CMP, CRP, T4F, TSH3, CBC #### [address] #### ALDOLASE, CAMILLA SERUM, SPE, CAMILLA,URINE, UPE RAND #### [facility] ,RBC,Hrxfa5-6Vskbey8-1Cta [facility] Health Physician GroupComment on above:Order Comment: Name Collection Type:: Clean-Voided MidstreamPerformed By: #### ESR, CK, ADDONUAPLUS, CMP, CRP, T4F, TSH3, CBC #### [address] #### ALDOLASE, CAMILLA SERUM, SPE, CAMILLA,URINE, UPE RAND #### [facility] ,Specificy [place],Urine1.887Lmfhhj7.001-1.030The [facility] Comment on above:Order Comment: Name Collection Type:: Clean-Voided Midstream Performed By: #### ESR, CK, ADDONUAPLUS, CMP, CRP, T4F, TSH3, CBC #### [address] #### ALDOLASE, CAMILLA SERUM, SPE, CAMILLA,URINE, UPE RAND #### [facility] ,Squamous Epithelial Cell,Jujus5-3Lfoc5-3Kye [facility] Physician GroupComment on above:Order Comment: Name Collection Type:: Clean-Voided MidstreamPerformed By: #### ESR, CK, ADDONUAPLUS, CMP, CRP, T4F, TSH3, CBC #### [address] #### ALDOLASE, CAMILLA SERUM, SPE, CAMILLA,URINE, UPE RAND #### [facility] ,Urobilinogen,UrineNormalNormalNormalThe [facility] Health Physician GroupComment on above:Order Comment: Name Collection Type:: Clean-Voided MidstreamPerformed By: #### ESR, CK, ADDONUAPLUS, CMP, CRP, T4F, TSH3, CBC #### [place] [address] [place] #### ALDOLASE, CAMILLA SERUM, SPE, CAMILLA,URINE, UPE RAND #### [facility] ,WBC,Tllpt3-8Srfoai3-8Xpp [facility] Physician GroupComment on above:Order Comment: Name Collection Type:: Clean-Voided MidstreamPerformed By: #### ESR, CK, ADDONUAPLUS, CMP, CRP, T4F, TSH3, CBC #### [facility] [address] [place] [address] #### ALDOLASE, CAMILLA SERUM, SPE, CAMILLA,URINE, UPE RAND #### [facility] ,Eosinophils Auto (Bld) [#/Vol]Ordered By: Jesus Ayala on 08-02-2024 Eosinophils (Bld) [#/Vol]Automated eosinophil count0.0-0.45Day[facility]opathic HospitalEosinophils/100 WBC Auto (Bld)Ordered By: Jesus Ayala on 65-49-5976Mdwdspsnnym/100 WBC (Bld)Automated eosinophil %.[facility]opathic HospitalErythrocyte Sedimentation Rateon 17-06-8613IXB (Bld) [Velocity]73 mm/hHigh0-19The [facility] Physician GroupComment on above:Result Comment: PERFORMED BY: [place] [address] PATHOLOGIST OIL MIXER ANAHY MCKEE M.D.Performed By: #### CEA #### [facility] [address] [place] [address] [place] #### CA125 #### [facility] ,Erythrocyte distribution width Auto (RBC) [Ratio]Ordered By: Jesus Ayala on 54-43-0799Ebtcjkezebn distribution width (RBC) [Ratio]Erythrocyte distribution width [Ratio] by Automated lplkdGdry85.9-15.3FMercy Memorial Hospital Erythrocyte distribution width [Ratio] by Automated countOrdered By: Jesus Ayala on 03-13-9077Ehqyatxquyy distribution width (RBC) [Ratio]15.7 %High 11.9-15.3FMercy Memorial HospitalComment on above:Performed By: #### CEA #### [place] [address] [place] #### CA125 #### [facility] ,Erythrocyte sedimentation rate by Photometric methodOrdered By: Jesus Ayala on 70-83-5389JHB Photometric method (Bld) [Velocity]73 mm/hrHigh0-[facility]opathic HospitalESR Photometric method (Bld) [Velocity]Erythrocyte sedimentation rate by Photometric methodHigh0-[facility]opathic HospitalErythrocytes [#/area] in Urine sediment by Automated countOrdered By: Jesus Ayala on 82-58-4929OMR Auto (Urine sed) [#/Area]3-4 [HPF]0-4FMercy Memorial HospitalErythrocytes [#/volume] in Blood by Automated count Ordered By: Jesus Ayala on 94-35-0807QXV (Bld) [#/Vol]4.37 10*6/uLNormal 3.60-5.00[facility] HospitalComment on above:Performed By: #### CEA #### [facility] [address] [place] [address] #### CA125 #### [facility] ,Globulin Calc (S) [Mass/Vol]Ordered By: Jesus Ayala on 29-55-9478Bktjfmed (S) [Mass/Vol]Serum globulin measurement by calculation (mass/volume)[facility] HospitalGlucose [Mass/volume] in Serum or PlasmaOrdered By: Jesus Ayala on 43-16-4995Rmapbvy [Mass/Vol]146 mg/hGOpae58-951LdqsggxvlDayton Osteopathic HospitalComment on above:ADA recommended reference rangeRandom Glucose Reference [...] ADDONUAPLUS, CMP, CRP, T4F, TSH3, CBC #### [facility] [address] [place] [address] [place] #### ALDOLASE, CAMILLA SERUM, SPE, CAMILLA,URINE, UPE RAND #### [facility] ,Glucose [Mass/Vol]Glucose [Mass/volume] in Serum or TpdpvjQrag69-958BlbznuetgDayton Osteopathic HospitalComment on above:ADA recommended reference rangeRandom Glucose Reference Range is dependent on time and content of last meal. Glucose of more than 200 mg/dL in a nonstressed, ambulatory subject supports the diagnosisof Diabetes Mellitus.Glucose [Mass/volume] in Urine by Test strip Ordered By: Jesus Ayala on 08-40-6519Ujkulps Test strip (U) [Mass/Vol]50 mg/dLAdena Pike Medical CenterGlucose Test strip (U) [Mass/Vol]Glucose [Mass/volume] in Urine by Test stripAdena Pike Medical CenterHematocrit Auto (Bld) [Volume fraction]Ordered By: Jesus Ayala on 44-56-0758Rjhhghbbje (Bld) [Volume fraction]Hematocrit [Volume Fraction] of Blood by Automated count34.0-46.4FMercy Memorial Hospital Hematocrit [Volume Fraction] of Blood by Automated countOrdered By: Jesus Ayala on 35-76-5335Ynvhzjjpgu (Bld) [Volume fraction]37.0 %Jcqgjq89.0-46.4 [facility] HospitalComment on above:Performed By: #### CEA #### [place] [address] [place] #### CA125 #### [facility] ,Hemoglobin Test strip Ql (U)Ordered By: Jesus Ayala on 41-02-0972Huyukkcfuo Ql (U)NegativeNegMercy Health Anderson HospitalHemoglobin Ql (U) Hemoglobin [Presence] in Urine by Test stripNegMercy Health Anderson HospitalHemoglobin [Mass/volume] in BloodOrdered By: Jesus Ayala on 08-02-2024 Hemoglobin (Bld) [Mass/Vol]12.4 g/vYFzrtri19.8-15.4FMercy Memorial HospitalComment on above:Performed By: #### CEA #### [place] [address] [place] #### CA125 #### [facility] ,Hemoglobin (Bld) [Mass/Vol]Hemoglobin [Mass/volume] in Blood11.8-15.4FMercy Memorial HospitalImmunofixation for UrineOrdered By: Jesus Ayala on 80-53-9251Prqlxfnntpzssn Immunofixation (U) [Interp]Immunofixation for Urine. [facility] HospitalComment on above:No monoclonality detected.Performed at: [facility] [address] [id number] Director: Gabriel Whitman PhD, Phone: [phone], (CAMILLA), Urineon 24-41-8526Ayiuyuwhnusqhm, (CAMILLA), UrineCommentNormal.The [facility] Physician GroupComment on above:Result Comment: No monoclonality detected. Performed at: [facility] [address] [id number] Checker In: Gabriel Whitman PhD, Phone: [phone] By: #### CEA #### [place] [address] [place] #### CA125 #### [facility] ,Immunofixation,Serumon 59-80-2228Gmjcczfafttjfa, SerumCommentNormal.The [facility] Physician GroupComment on above:Result Comment: No monoclonality detected.Performed By: #### CEA #### [facility] [address] [place] [address] [place] #### CA125 #### [facility] ,Immunoglobulin A, Xejbt705 mg/uBXxuxsd30-054Lhn [facility] Comment on above:Performed By: #### CEA #### [facility] [address] [place] [address] [place] #### CA125 #### [facility] ,Immunoglobulin G1357 mg/fWBidozi605-5166Kqh [facility] Physician GroupComment on above:Performed By: #### CEA #### [facility] [address] [place] [address] [place] #### CA125 #### [facility] ,Immunoglobulin M, Serum94 mg/xWEiphgv75-221Zcq [facility] Physician GroupComment on above:Result Comment: Performed at: - Lab[address] [id number] Checker In: Gabriel Whitman PhD, Phone: [phone] By: #### CEA #### [facility] [address] [place] [address] #### CA125 #### [facility] ,Ketones Test strip Ql (U)Ordered By: Jesus Jamie on 59-41-7760Qfmrcsq Ql (U) Ketones [Presence] in Urine by Test stripNegMercy Health Anderson HospitalKetones [Presence] in Urine by Test stripOrdered By: Jesushelio Ayala on 01-32-9974Jqtnsdh Ql (U)NegativeNormOhioHealth Southeastern Medical Center Comment on above:Order Comment: Name Collection Type:: Clean-Voided Midstream Performed By: #### ESR, CK, ADDONUAPLUS, CMP, CRP, T4F, TSH3, CBC #### [facility] [address] [place] [address] [place] #### ALDOLASE, CAMILLA SERUM, SPE, CAMILLA,URINE, UPE RAND #### [facility] ,Laboratory - UrinalysisOrdered By: Jesus Jamie on 19-24-5835Xqylrsl casts LM Ql (Urine sed)0-8 [LPF]0-8[facility] HospitalLeukocyte esterase [Presence] in Urine by Test stripOrdered By: Jesus Jamie on 08-02-2024 Leukocyte esterase Test strip Ql (U)NegativeNormalNegMercy Health Anderson HospitalComment on above:Order Comment: Name Collection Type:: Clean- Voided MidstreamPerformed By: #### ESR, CK, ADDONUAPLUS, CMP, CRP, T4F, TSH3, CBC #### [facility] [address] [place] [address] [place] #### ALDOLASE, CAMILLA SERUM, SPE, CAMILLA,URINE, UPE RAND #### [facility] ,Leukocyte esterase Test strip Ql (U)Leukocyte esterase [Presence] in Urine by Test stripNegativeDayton Osteopathic HospitalLeukocytes [#/area] in Urine sediment by Automated countOrdered By: Jesus Gruberrow on 34-00-0418BOF Auto (Urine sed) [#/Area]3-4 [HPF]0-4FMercy Memorial HospitalLeukocytes [#/volume] corrected for nucleated erythrocytes in Blood by Automated coun Ordered By: Jesus Ayala on 71-91-1642QOI corrected for nucl RBC Auto (Bld) [#/Vol]7.8 10*3/uL3.8-11.6FMercy Memorial HospitalWBC corrected for nucl RBC Auto (Bld) [#/Vol]Leukocytes [#/volume] corrected for nucleated erythrocytes in Blood by Automated coun3.8-11.6FMercy Memorial Hospital Leukocytes [#/volume] in Blood by Automated countOrdered By: Jseus Gruberrow on 29-87-5090QFY (Bld) [#/Vol]7.8 10*3/uLNormal3.8-11.6FMercy Memorial HospitalComment on above:Performed By: #### CEA #### [facility] [address] [place] [address] [place] #### CA125 #### [facility] ,Lymphocytes Auto (Bld) [#/Vol]Ordered By: Jesushelio Ayala on 08-02-2024 Lymphocytes (Bld) [#/Vol]Lymphocytes [#/volume] in Blood by Automated count 1.00-4.8[facility]opathic HospitalLymphocytes [#/volume] in Blood by Automated countOrdered By: Jesushelio Ayala on 82-33-3900Qtifsyowcqh (Bld) [#/Vol] 1.2 10*3/uLNormal1.00-4.8Day[facility]opathic HospitalComment on above: Performed By: #### CEA #### [facility] [address] [place] [address] [place] #### CA125 #### [facility] ,Lymphocytes/100 WBC Auto (Bld)Ordered By: Jesus Ayala on 08-02-2024 Lymphocytes/100 WBC (Bld)Lymphocytes/100 leukocytes in Blood by Automated count. [facility]opathic HospitalLymphocytes/100 leukocytes in Blood by Automated countOrdered By: Jesus Ayala on 79-96-7885Pfsnrtmxkti/100 WBC (Bld) 15.0 %Normal.[facility] HospitalComment on above:Performed By: #### CEA #### [facility] [address] [place] [address] [place] #### CA125 #### [facility] ,MCH Auto (RBC) [Entitic mass]Ordered By: Jesus Ayala on 24-81-3770ATI (RBC) [Entitic mass]MCH [Entitic mass] by Automated count24.7-34.3FSt. Vincent Hospital [Entitic mass] by Automated countOrdered By: Jesus Ayala on 88-24-2219VIL (RBC) [Entitic mass]28.3 ayMnngbv21.7-34.3FMercy Memorial HospitalComment on above:Performed By: #### CEA #### [facility] [address] [place] [address] [place] #### CA125 #### [facility] ,MCHC Auto (RBC) [Mass/Vol]Ordered By: Jesus Ayala on 66-56-8896KVZH (RBC) [Mass/Vol]33.5 g/dL32.0-35.0German HospitalHC (RBC) [Mass/Vol]MCHC [Mass/volume] by Automated count32.0-35.0[facility]opathic HospitalMCV Auto (RBC) [Entitic vol]Ordered By: Jesus Ayala on 94-16-5443GFF (RBC) [Entitic vol]MCV [Entitic volume] by Automated fpyuy39-891 German HospitalV [Entitic volume] by Automated countOrdered By: Jesus Ayala on 90-12-6870UVY (RBC) [Entitic vol]84.6 wDZmvlvl68-085 [facility] CenterComment on above:Performed By: #### CEA #### [facility] [address] [place] [address] [place] #### CA125 #### [facility] ,Monocytes Auto (Bld) [#/Vol]Ordered By: Jesus Ayala on 03-36-2335Ehfdacwah (Bld) [#/Vol]Automated blood monocyte count0.0-0.8[facility] HospitalMonocytes/100 WBC Auto (Bld)Ordered By: Jesus Ayala on 08-02-2024 Monocytes/100 WBC (Bld)Automated monocyte %.[facility] Neutrophils Auto (Bld) [#/Vol]Ordered By: Jesus Ayala on 08-02-2024 Neutrophils (Bld) [#/Vol]Neutrophils [#/volume] in Blood by Automated count 1.8-7.7FMercy Memorial HospitalNeutrophils [#/volume] in Blood by Automated countOrdered By: Jesus Ayala on 52-36-5303Xuzymoixugu (Bld) [#/Vol] 6.0 10*3/uLNormal1.8-7.7FMercy Memorial HospitalComment on above: Performed By: #### CEA #### [facility] [address] [place] [address] [place] #### CA125 #### [facility] ,Neutrophils/100 WBC Auto (Bld)Ordered By: Jesus Ayala on 08-02-2024 Neutrophils/100 WBC (Bld)Automated neutrophil %.[facility] HospitalNitrite Test strip Ql (U)Ordered By: Jesus Ayala on 53-05-1517Mpwijvq Ql (U)NegativeNegativeDayton Osteopathic HospitalNitrite Ql (U)Nitrite [Presence] in Urine by Test stripNegativeDayton Osteopathic HospitalNo Panel InformationOrdered By: Jesus Ayala on 39-87-2203Ampvxxcok GFR (CKD-EPI) > 60.0 mL/MinDayton Osteopathic HospitalPharmacy Creatinine Clearance (ChemN/AFMercy Memorial HospitalProtein Electrophoresis M-SpikeNot observed g/dLNot ObservedDayton Osteopathic HospitalProtein Electrophoresis NoteComment.[facility] Osteopathic HospitalComment on above: Protein electrophoresis scan will follow via computer,mail, or laborer wood preserving plant delivery.Performed at: [address] [id number] Director: Gabriel Whitman PhD, Phone: [phone] Random Prot Electrophor NoteComment.[facility] Osteopathic HospitalComment on above: Protein electrophoresis scan will follow via computer,mail, or laborer wood preserving plant delivery. Nucleated erythrocytes [Presence] in Blood by Automated countOrdered By: Jesus Ayala on 50-26-5938Cagypacqy RBC Auto Ql (Bld)0.1 /100{WBC}0-0.5FMercy Memorial HospitalNucleated RBC Auto Ql (Bld)Nucleated erythrocytes [Presence] in Blood by Automated count0-0.5FMercy Memorial Hospital Platelet mean volume Auto (Bld) [Entitic vol]Ordered By: Jesus Ayala on 72-65-0687Hqmqqibd mean volume (Bld) [Entitic vol]Platelet mean volume [Entitic volume] in Blood by Automated count6.3-10.7FMercy Memorial Hospital Platelet mean volume [Entitic volume] in Blood by Automated countOrdered By: Jesus Ayala on 83-77-8472Ndbmxvgm mean volume (Bld) [Entitic vol]6.6 fLNormal 6.3-10.7FMercy Memorial HospitalComment on above:Performed By: #### CEA #### [facility] [address] [place] [address] #### CA125 #### [facility] ,Platelets Auto (Bld) [#/Vol]Ordered By: Jesus Ayala on 21-76-9413Vlxpgmjdg (Bld) [#/Vol]Platelets [#/volume] in Blood by Automated pdmma911-632ZvipsoxggDayton Osteopathic HospitalPlatelets [#/volume] in Blood by Automated countOrdered By: Jesus Ayala on 98-73-1072Xwsfukafu (Bld) [#/Vol]439 10*3/kGOmraar800-354 [facility] HospitalComment on above:Performed By: #### CEA #### [place] [address] [place] #### CA125 #### [facility] ,Potassium [Moles/volume] in Serum or PlasmaOrdered By: Jesus Ayala on 86-24-5689Kewswtaqo [Moles/Vol]3.8 mmol/LNormal3.5-5.1FMercy Memorial HospitalComment on above:Performed By: #### ESR, CK, ADDONUAPLUS, CMP, CRP, T4F, TSH3, CBC #### [address] #### ALDOLASE, CAMILLA SERUM, SPE, CAMILLA,URINE, UPE RAND #### [facility] ,Potassium [Moles/Vol]Potassium [Moles/volume] in Serum or Plasma3.5-5.1 [facility]opathic HospitalProtein Electro, Random Urineon 08-02-2024 Albumin, Urine36.1 %Normal.The [facility] Physician GroupComment on above: Performed By: #### CEA #### [place] [address] [place] #### CA125 #### [facility] ,Wsaak-3-Yjbmadom, Urine4.1 %Normal.The [facility] Health Physician GroupComment on above:Performed By: #### CEA #### [place] [address] [place] #### CA125 #### [facility] ,Yrewb-9-Tysvknvz, Urine18.4 %Normal.The [facility] Health Physician GroupComment on above:Performed By: #### CEA #### [place] [address] [place] #### CA125 #### [facility] ,Beta Globulin, Urine24.3 %Normal.The [facility] Health Physician GroupComment on above: Performed By: #### CEA #### [place] [address] [place] #### CA125 #### [facility] ,Gamma Globulin, Urine17.1 %Normal.The [facility] Physician GroupComment on above:Performed By: #### CEA #### [place] [address] [place] #### CA125 #### [facility] ,M-Maury %Not ObservedNormalNot ObservedThe [facility] Health Physician GroupComment on above:Performed By: #### CEA #### [place] [address] [place] #### CA125 #### [facility] ,Please Note:CommentNormal.The [facility] Physician GroupComment on above:Result Comment: Protein electrophoresis scan will follow via computer, mail, or laborer wood preserving plant delivery. PERFORMED BY: [place] [address] PATHOLOGIST OIL MIXER ANAHY MCKEE M.D.Performed By: #### CEA #### [place] [address] [place] #### CA125 #### [facility] ,Protein (U) [Mass/Vol]9.0 mg/dLNormalNot Estab.The [facility] Comment on above:Performed By: #### CEA #### [place] [address] [place] #### CA125 #### [facility] ,Protein Electrophoresis, Serumon 28-37-4871Uxmwjhv [Mass/Vol]3.9 g/dLNormal 2.9-4.4The [facility] Physician GroupComment on above:Performed By: #### CEA #### [place] [address] [place] #### CA125 #### [facility] ,Albumin/Globulin [Mass ratio]1.1 {ratio}Normal0.7-1.7The [facility] Health Physician GroupComment on above:Performed By: #### CEA #### [place] [address] [place] #### CA125 #### [facility] ,Tzzqd-1-Biaeutpi4.2 g/dLNormal0.0-0.4The [facility] Physician GroupComment on above:Performed By: #### CEA #### [facility] [address] [place] [address] [place] #### CA125 #### [facility] ,Nvsve-3-Fxomzpqy8.0 g/dLNormal0.4-1.0The [facility] Physician GroupComment on above:Performed By: #### CEA #### [facility] [address] [place] [address] [place] #### CA125 #### [facility] ,Beta Globulin1.2 g/dLNormal0.7-1.3The [facility] Physician GroupComment on above:Performed By: #### CEA #### [facility] [address] [place] [address] [place] #### CA125 #### [facility] ,Gamma Globulin1.3 g/dLNormal0.4-1.8The [facility] Physician GroupComment on above:Performed By: #### CEA #### [facility] [address] [place] [address] [place] #### CA125 #### [facility] ,Globulin (S) [Mass/Vol]3.6 g/dLNormal2.2-3.9The [facility] Comment on above:Performed By: #### CEA #### [facility] [address] [place] [address] [place] #### CA125 #### [facility] ,M-SpikeNot ObservedNormalNot ObservedThe [facility] Health Physician GroupComment on above:Performed By: #### CEA #### [place] [address] [place] #### CA125 #### [facility] ,SPE-NoteCommentNormal.The [facility] Physician GroupComment on above:Result Comment: Protein electrophoresis scan will follow via computer, mail, or laborer wood preserving plant delivery. Performed at: [facility] Lab[address], [place], [place] [id number] Checker In: Gabriel Whitman PhD, Phone: [phone] PERFORMED BY: [place] [address] PATHOLOGIST OIL MIXER ANAHY MCKEE M.D.Performed By: #### CEA #### [address] #### CA125 #### [facility] ,Protein Test strip (U) [Mass/Vol]Ordered By: Jesus Ayala on 08-02-2024 Protein (U) [Mass/Vol]NegativeNegativeDayton Osteopathic HospitalProtein (U) [Mass/Vol]Protein [Mass/volume] in Urine by Test stripNegativeDayton Osteopathic HospitalProtein [Mass/volume] in Serum or PlasmaOrdered By: Jesus Ayala on 22-89-9459Gzgqpbl [Mass/Vol]7.5 g/dLNormal6.0-8.5FMercy Memorial HospitalComment on above:Performed By: #### ESR, CK, ADDONUAPLUS, CMP, CRP, T4F, TSH3, CBC #### [address] #### ALDOLASE, CAMILLA SERUM, SPE, CAMILLA,URINE, UPE RAND #### [facility] ,Performed By: #### CEA #### [address] #### CA125 #### [facility] ,Protein [Mass/Vol]Protein [Mass/volume] in Serum or Plasma6.0-8.5FMercy Memorial HospitalRBC Auto (Bld) [#/Vol]Ordered By: Jesus Ayala on 86-64-1309IIC (Bld) [#/Vol]Erythrocytes [#/volume] in Blood by Automated count 3.60-5.00[facility] Hospitalerum aldolase measurementOrdered By: Jesus Ayala on 78-10-3100BK biopsyCT biopsy3.3-10.3FMercy Memorial HospitalComment on above:Performed at: - Lab[address] [id number] Director: Gabriel Whitman PhD, Phone: [phone] globulin measurement (mass/volume)Ordered By: Jesus Ayala on 08-02-2024 Globulin (S) [Mass/Vol]Serum globulin measurement (mass/volume)2.2-3.9[facility] Hospitalerum globulin measurement by calculation (mass/volume) Ordered By: Jesus Ayala on 16-52-6851Nysgeoph (S) [Mass/Vol]3.2 g/dLNormal [facility] HospitalComment on above:Performed By: #### ESR, CK, ADDONUAPLUS, CMP, CRP, T4F, TSH3, CBC #### [facility] [address] #### ALDOLASE, CAMILLA SERUM, SPE, CAMILLA,URINE, UPE RAND #### [facility] ,Serum immunofixation electrophoresisOrdered By: Jesus Ayala on 08-02-2024 Serum ImmunofixationComment.[facility] Osteopathic HospitalComment on above:No monoclonality detected.Serum or plasma IgA measurement (mass/volume)Ordered By: Jesus Ayala on 56-90-7957RfN [Mass/Vol]IgA [Mass/volume] in Serum or Plasma 87-352[facility] St[facility] Hospitalerum or plasma IgG measurement (mass/volume)Ordered By: Jesus Ayala on 62-64-3047RaD [Mass/Vol]IgG [Mass/volume] in Serum or Mjtmno884-4855SdmdehlkkMercy Health St. Elizabeth Youngstown Hospitalerum or plasma IgM measurement (mass/volume)Ordered By: Jesus Ayala on 08-02-2024 IgM [Mass/Vol]IgM [Mass/volume] in Serum or Mvueif41-847OlpaavzipDayton Osteopathic HospitalComment on above:Performed at: [facility] LabS[facility] [place] [id number] [place], [place] [id number] Director: Gabriel Whitman PhD, Phone: [phone] Serum or plasma albumin measurement (mass/volume)Ordered By: Jesushelio Ayala on 84-62-6511Xlvghyn [Mass/Vol]Albumin [Mass/volume] in Serum or Plasma2.9-4.[address] [facility] Hospitalerum or plasma albumin/globulin mass ratio Ordered By: Jesus Jamie on 88-23-2039Nuyhvja/Globulin [Mass ratio]1.3 {ratio} NormalDayton Osteopathic HospitalComment on above:Performed By: #### ESR, CK, ADDONUAPLUS, CMP, CRP, T4F, TSH3, CBC #### [facility] [address] [place] [address] #### ALDOLASE, CAMILLA SERUM, SPE, CAMILLA,URINE, UPE RAND #### [facility] ,Albumin/Globulin [Mass ratio]Serum or plasma albumin/globulin mass ratio0.7-1.[address] [facility] Hospitalerum or plasma alpha 1 globulin measurement by electrophoresis (mass/volume)Ordered By: Jesus Ayala on 54-13-2519Mgjch 1 globulin Elph [Mass/Vol]Serum or plasma alpha 1 globulin measurement by electrophoresis (mass/volume)0.0-0.4FOhioHealth Arthur G.H. Bing, MD, Cancer Centererum or plasma alpha 2 globulin measurement by electrophoresis (mass/volume)Ordered By: Jesus Ayala on 00-42-2275Adsmh 2 globulin Elph [Mass/Vol]Serum or plasma alpha 2 globulin measurement by electrophoresis (mass/volume)0.4-1.0[facility] Hospitalerum or plasma anion gap determinationOrdered By: Jesus Ayala on 08-07-4731Lrrbt gap [Moles/Vol]12.2 mmol/LNormal6.0-15.0 [facility] HospitalComment on above:Performed By: #### ESR, CK, ADDONUAPLUS, CMP, CRP, T4F, TSH3, CBC #### [facility] [address] [place] [address] [place] #### ALDOLASE, CAMILLA SERUM, SPE, CAMILLA,URINE, UPE RAND #### [facility] ,Anion gap [Moles/Vol]Serum or plasma anion gap determination6.0-15.0[facility] Hospitalerum or plasma beta globulin measurement by electrophoresis (mass/volume)Ordered By: Jesus Ayala on 08-20-9744Eiej globulin Elph [Mass/Vol]Serum or plasma beta globulin measurement by electrophoresis (mass/volume)0.7-1.3FOhioHealth Arthur G.H. Bing, MD, Cancer Centererum or plasma cancer antigen 125 (CA-125) measurement (units/volume)Ordered By: Blake Hinojosa on 77-03-1046Aqibuv Ag 125 QnSerum or plasma cancer antigen 125 (CA-125) measurement (units/volume)0.0-38.1FMercy Memorial HospitalComment on above:[employer] Electrochemiluminescence Immunoassay(ECLIA)Values obtained with different assay methods or kits cannotbe used interchangeably. Results cannot be interpreted asabsolute evidence of the presence or absence of malignantdisease.Performed at: [facility] [place] [id number] Director: Gabriel Whitman PhD, Phone: [phone] or plasma carcinoembryonic antigen measurement (mass/volume)Ordered By: Blake Hinojosa on 65-64-5802Vgrjerywmwetbcad Ag [Mass/Vol]1.0 ng/mL0.0-3.0[facility]opathic HospitalComment on above:Serial tumor marker results determined by assays using different manufacturers or methods may not be comparable.[facility] container washer and method:7 Cups of Tea UNICEL DXI, 2 SITE IMMUNOENZYMATIC SANDWICH ASSAY.Serum or plasma gamma globulin measurement by electrophoresis (mass/volume)Ordered By: Jesus Ayala on 76-75-1410Pjxmn globulin Elph [Mass/Vol]Serum or plasma gamma globulin measurement by electrophoresis (mass/volume)0.4-1.8[facility] Hospitalodium [Moles/volume] in Serum or PlasmaOrdered By: Jesus Ayala on 24-15-7218Tvjllt [Moles/Vol]138 mmol/ZJwwujd432-075VttdhdccjDayton Osteopathic HospitalComment on above:Performed By: #### ESR, CK, ADDONUAPLUS, CMP, CRP, T4F, TSH3, CBC #### [facility] [address] [place] [address] #### ALDOLASE, CAMILLA SERUM, SPE, CAMILLA,URINE, UPE RAND #### [facility] ,Sodium [Moles/Vol]Sodium [Moles/volume] in Serum or Yojteb770-051RpedjqdchMercy Health St. Elizabeth Youngstown Hospitalpecific gravity Test strip (U) [Rel density]Ordered By: Jesus Ayala on 30-15-7903Oxtacbvz gravity (U) [Rel density]1.0131.001-1.[address] [facility] Young[facility] Hospitalpecific gravity (U) [Rel density]Specific gravity of Urine by Test strip1.001-1.030[facility] Thyrotropin [Units/volume] in Serum or PlasmaOrdered By: Jesus Ayala on 71-84-2014HLD Qn2.77 m[IU]/LNormal0.45-5.33[facility] Comment on above:Result Comment: PERFORMED BY: [place] [address] PATHOLOGIST OIL MIXER ANAHY MCKEE M.D.Performed By: #### CEA #### [facility] [address] [place] [address] #### CA125 #### [facility] ,TSH QnThyrotropin [Units/volume] in Serum or Plasma0.45-5.33[facility]opathic HospitalThyroxine (T4) free [Mass/volume] in Serum or PlasmaOrdered By: Jesus Ayala on 61-74-2232Njzn T4 [Mass/Vol]0.68 ng/dLNormal0.61-1.12[facility] HospitalComment on above:Performed By: #### ESR, CK, ADDONUAPLUS, CMP, CRP, T4F, TSH3, CBC #### [facility] [address] [place] [address] [place] #### ALDOLASE, CAMILLA SERUM, SPE, CAMILLA,URINE, UPE RAND #### [facility] ,Free T4 [Mass/Vol]Thyroxine (T4) free [Mass/volume] in Serum or Plasma0.61-1.12 [facility] HospitalUrea nitrogen [Mass/volume] in Serum or Plasma Ordered By: Jesus Ayala on 08-20-4300Ufqn nitrogen [Mass/Vol]14 mg/dLNormal 04-29Day[facility] HospitalComment on above:Performed By: #### ESR, CK, ADDONUAPLUS, CMP, CRP, T4F, TSH3, CBC #### [facility] [address] [place] [address] #### ALDOLASE, CAMILLA SERUM, SPE, CAMILLA,URINE, UPE RAND #### [facility] ,Urea nitrogen [Mass/Vol]Urea nitrogen [Mass/volume] in Serum or Plasma04-29 [facility] HospitalUrine alpha 1 globulin/total protein by electrophoresisOrdered By: Jesus Ayala on 58-37-0251Chaos 1 globulin Elph (U) [Mass fraction]Urine alpha 1 globulin/total protein by electrophoresis. [facility]opathic HospitalUrine alpha 2 globulin/total protein ratio by electrophoresisOrdered By: Jesus Ayala on 22-81-1404Malnr 2 globulin Elph (U) [Mass fraction]Urine alpha 2 globulin/total protein ratio by electrophoresis. [facility]opathic HospitalUrine appearanceOrdered By: Jesus Ayala on 55-49-5925Vsuzdredbf (U)ClearNormalClearDayton Osteopathic HospitalComment on above:Order Comment: Name Collection Type:: Clean-Voided MidstreamPerformed By: #### ESR, CK, ADDONUAPLUS, CMP, CRP, T4F, TSH3, CBC #### [facility] [address] [place] [address] [place] #### ALDOLASE, CAMILLA SERUM, SPE, CAMILLA,URINE, UPE RAND #### [facility] ,Urine bacteria detection by automated methodOrdered By: Jesus Ayala on 77-61-2438Nmblmahv Auto Ql (U)Bacteria [Presence] in Urine by AutomatedNone Seen [facility]opathic HospitalUrine beta globulin measurement by electrophoresis (mass/volume)Ordered By: Jesus Ayala on 77-32-8334Ltak globulin Elph (U) [Mass/Vol]Urine beta globulin measurement by electrophoresis (mass/volume).[facility] HospitalUrine protein measurement (mass/volume)Ordered By: Jesus Ayala on 59-03-3163Tlgnhqd (U) [Mass/Vol] Protein [Mass/volume] in UrineNot Estab.[facility] Urobilinogen Test strip (U) [Mass/Vol]Ordered By: Jesus Ayala on 08-02-2024 Urobilinogen (U) [Mass/Vol]Normal mg/dLNormalDayton Osteopathic Hospital Urobilinogen (U) [Mass/Vol]Urobilinogen [Mass/volume] in Urine by Test strip NormalDayton Osteopathic HospitalWBC Auto (Bld) [#/Vol]Ordered By: Jesus Ayala on 53-32-4902YRF (Bld) [#/Vol]Leukocytes [#/volume] in Blood by Automated count3.8-11.6FMercy Memorial HospitalXR chest 2V*on 68-77-4162GO chest 2V*[facility] [place] [address] XRay Report Signed Patient: Mandeep Puri MR#: [id number] [birth year] : 1975 Acct:[id number] Age/Sex: 48 / F ADM Date: 08/02/24 [...] Trupti Adorno M.D.08/02/2024 4:18 PM Dictation Location: [place] [address] Transcribed By: [facility] 08/02/241617 Dictated By: Trupti Adorno MD 08/02/241616 Signed By: 08/02/24 1618[facility] Physician GrouppH Test strip (U)Ordered By: Jesus Ayala on 67-16-5670vH (U)pH of Urine by Test strip5.0-9.0[facility] Osteopathic HospitalpH of Urine by Test stripOrdered By: Jesus Jamie on 68-35-4817oW (U)7.0 [pH]Normal5.0-9.0[facility]opathic HospitalComment on above:Order Comment: Name Collection Type:: Clean-Voided MidstreamPerformed By: #### ESR, CK, ADDONUAPLUS, CMP, CRP, T4F, TSH3, CBC #### [facility] [address] #### ALDOLASE, CAMILLA SERUM, SPE, CAMILLA,URINE, UPE RAND #### [facility] ,ALL CBC WITH AUTO DIFFon 71-79-7282MEOPGLGYD ABSOLUTE HKPB2DSZX Healthcare Basophils/100 WBC (Bld)0.5 %0.2 - 2.0 %[facility]OMS HealthcareEosinophils/100 WBC (Bld) 2.9 %0.9 - 7.0 %[facility]OM[facility] HealthcareErythrocyte distribution width (RBC) [Ratio]14.4 %11.0 - 15.0 %[facility] HealthcareHematocrit (Bld) [Volume fraction]35.2 %Low36.0 - 48.0 %[facility] HealthcareHemoglobin (Bld) [Mass/Vol]11.4 g/dLLow12.0 - 16.0 g/dLNOSC HealthcareIMMATURE GRANULOCYTES ABS AUTO0.06HighNOSC HealthcareImmature granulocytes/100 WBC (Bld)0.7 %High0.0 - 0.5 %[facility] HealthcareInterpretation and review of laboratory resultsAbnormalNOSC HealthcareLYMPHOCYTES ABSOLUTE AUTO1.1 LowNOMS HealthcareLymphocytes/100 WBC (Bld)14 %Low20.5 - 60.0 %[facility] MCH (RBC) [Entitic mass]28 pg26.7 - 34.0 pgNOMercy hospital springfieldMCHC (RBC) [Mass/Vol] 32.4 g/dL29.9 - 35.2 g/dLNOMercy hospital springfieldMCV (RBC) [Entitic vol]86.5 fL81.0 - 99.0 fLCrittenton Behavioral HealthMONOCYTES ABSOLUTE AUTO0.4NOSC HealthcareMonocytes/100 WBC (Bld)5 %1.7 - 12.0 %NOMSt. Louis Behavioral Medicine InstituteNEUTROPHILS ABSOLUTE AUTO6.3NOMercy hospital [place] Neutrophils/100 WBC (Bld)76.9 %High43.0 - 75.0 %[facility] HealthPlatelet mean volume (Bld) [Entitic vol]8.3 fLLow9.5 - 13.5 fLCrittenton Behavioral HealthTBH EO #0.2NOMS [facility] [id number] John's Hospital RBC4.07LowNOSaint John's Hospital WBC8.2NOMS Pomerene HospitalCLINISYNCNCox NorthALL CBC WITH AUTO DIFFon 89-52-7242MCRCOYBAJ ABSOLUTE AUTO0.0NOMercy hospital springfieldBasophils/100 WBC (Bld)0.4 %0.2 - 2.0 %NOMS HealthcareEosinophils/100 WBC (Bld)2.4 %0.9 - 7.0 %[facility] HealthErythrocyte distribution width (RBC) [Ratio]15.5 %High11.0 - 15.0 %[facility] HealthHematocrit (Bld) [Volume fraction]37.7 %36.0 - 48.0 %[facility] HealthHemoglobin (Bld) [Mass/Vol]11.9 g/dLLow12.0 - 16.0 g/dLCrittenton Behavioral HealthIMMATURE GRANULOCYTES ABS AUTO0.03NOMercy hospital springfieldImmature granulocytes/100 WBC (Bld)0.4 %0.0 - 0.5 %[facility] HealthInterpretation and review of laboratory resultsAbnormalCrittenton Behavioral Health LYMPHOCYTES ABSOLUTE AUTO1.1LowNCox NorthLymphocytes/100 WBC (Bld)14.8 %Low 20.5 - 60.0 %[facility] HospitalH (RBC) [Entitic mass]27.9 pg26.7 - 34.0 pgProgress West HospitalHC (RBC) [Mass/Vol]31.6 g/dL29.9 - 35.2 g/dLProgress West HospitalV (RBC) [Entitic vol]88.3 fL81.0 - 99.0 fLCrittenton Behavioral HealthMONOCYTES ABSOLUTE AUTO0.4NOMercy hospital springfieldMonocytes/100 WBC (Bld)5.1 %1.7 - 12.0 %[facility] HealthNEUTROPHILS ABSOLUTE AUTO5.7NOMS HealthcareNeutrophils/100 WBC (Bld)76.9 %High43.0 - 75.0 % [facility] HealthPlatelet mean volume (Bld) [Entitic vol]8.6 fLLow9.5 - 13.5 fL [facility] HealthTBH EO #0.2NOMS Pomerene HospitalTB [id number] [facility] RBC4.27 NOMEastern [facility] State Hospital WBC7.5NOMercy hospital springfieldCLINISYNCNCox NorthALL CBC WITH AUTO DIFFon 58-87-9726RHAQOAOYX ABSOLUTE AUTO0.0NOMercy hospital springfieldBasophils/100 WBC (Bld)0.5 %0.2 - 2.0 %[facility] HealthEosinophils/100 WBC (Bld)3.0 %0.9 - 7.0 % [facility] HealthErythrocyte distribution width (RBC) [Ratio]15.9 %High11.0 - 15.0 %[facility] HealthHematocrit (Bld) [Volume fraction]36.3 %36.0 - 48.0 %[facility] HealthHemoglobin (Bld) [Mass/Vol]11.8 g/dLLow12.0 - 16.0 g/dLCrittenton Behavioral Health IMMATURE GRANULOCYTES ABS AUTO0.04HighCrittenton Behavioral HealthImmature granulocytes/100 WBC (Bld)0.5 %0.0 - 0.5 %[facility] HealthInterpretation and review of laboratory resultsAbnormalCrittenton Behavioral HealthLYMPHOCYTES ABSOLUTE AUTO1.2NOM[facility] Lymphocytes/100 WBC (Bld)14.0 %Low20.5 - 60.0 %[facility] HospitalH (RBC) [Entitic mass]28.0 pg26.7 - 34.0 pgProgress West HospitalHC (RBC) [Mass/Vol]32.5 g/dL29.9 - 35.2 g/dLProgress West HospitalV (RBC) [Entitic vol]86.0 fL81.0 - 99.0 fLCrittenton Behavioral HealthMONOCYTES ABSOLUTE AUTO0.5NOMercy hospital springfieldMonocytes/100 WBC (Bld)5.7 % 1.7 - 12.0 %[facility] HealthNEUTROPHILS ABSOLUTE AUTO6.4NOMercy hospital [place] Neutrophils/100 WBC (Bld)76.3 %High43.0 - 75.0 %NOMS HealthcarePlatelet mean volume (Bld) [Entitic vol]8.6 fLLow9.5 - 13.5 fLNOMS HealthcareTBH EO #0.3NOMS HealthcareTBH [id number] HealthcareTBH RBC4.22NOMS HealthcareTBH WBC8.4NOMS HealthcareCLINISYNCNOMS HealthcareAlanine aminotransferase [Enzymatic activity/volume] in Serum or PlasmaOrdered By: Perri Ceja on 46-28-3077HGN [Catalytic activity/Vol]20 U/L7-52[facility] HospitalAlbumin [Mass/volume] in Serum or Plasma by Bromocresol green (BCG) dye binding metho Ordered By: Perri Ceja on 89-36-8970Nfuqfzu BCG dye [Mass/Vol]4.7 g/dL 3.5-5.7FMercy Memorial HospitalAlkaline phosphatase [Enzymatic activity/volume] in Serum or PlasmaOrdered By: Perri Ceja on 83-89-0666VCF [Catalytic activity/Vol]96 U/U46-564FyzjvmvskDayton Osteopathic HospitalAspartate aminotransferase [Enzymatic activity/volume] in Serum or PlasmaOrdered By: Perri Ceja on 90-01-9809UJJ [Catalytic activity/Vol]16 U/J04-35JlwiiiionDayton Osteopathic HospitalBasophils Auto (Bld) [#/Vol]Ordered By: Perri Ceja on 81-78-1611Wclbdxucj (Bld) [#/Vol]0.1 10*3/uL0.0-0.2FMercy Memorial HospitalBasophils/100 WBC Auto (Bld)Ordered By: Perri Ceja on 11-06-2023 Basophils/100 WBC (Bld)0.7 %.[facility] HospitalBilirubin.total [Mass/volume] in Serum or PlasmaOrdered By: Perri Ceja on 11-06-2023 Bilirubin [Mass/Vol]0.4 mg/dL0.3-1.0[facility]opathic HospitalC reactive protein [Mass/volume] in Serum or PlasmaOrdered By: Perri Ceja on 11-06-2023 CRP [Mass/Vol]2.0 mg/dL0.0-0.5FMercy Memorial HospitalCalcium [Mass/volume] in Serum or PlasmaOrdered By: Perri Ceja on 54-16-1030Wterzcd [Mass/Vol]10.3 mg/dL8.6-10.3FMercy Memorial HospitalCarbon dioxide, total [Moles/volume] in Serum or PlasmaOrdered By: Perri Ceja on 11-06-2023 CO2 [Moles/Vol]26.1 mmol/L21.0-31.0[facility] HospitalChloride [Moles/volume] in Serum or PlasmaOrdered By: Perri Ceja on 11-06-2023 Chloride [Moles/Vol]104 mmol/I36-255PzwzqnujsDayton Osteopathic HospitalCreatine kinase [Enzymatic activity/volume] in Serum or PlasmaOrdered By: Perri Ceja on 67-11-9067MZ [Catalytic activity/Vol]30 U/H28-409NnasapwgoDayton Osteopathic HospitalCreatinine [Mass/volume] in Serum or PlasmaOrdered By: Perri Ceja on 63-20-6363Dlodbzzdch [Mass/Vol]1.17 mg/dL0.60-1.20[facility] HospitalEosinophils Auto (Bld) [#/Vol]Ordered By: Perri Ceja on 11-06-2023 Eosinophils (Bld) [#/Vol]0.3 10*3/uL0.0-0.45[facility] Eosinophils/100 WBC Auto (Bld)Ordered By: Perri Ceja on 11-06-2023 Eosinophils/100 WBC (Bld)3.0 %.[facility] HospitalErythrocyte distribution width Auto (RBC) [Ratio]Ordered By: Perri Ceja on 11-06-2023 Erythrocyte distribution width (RBC) [Ratio]15.3 %11.9-15.3FMercy Memorial HospitalErythrocyte sedimentation rate by Photometric methodOrdered By: Perri Ceja on 72-47-8570JQW Photometric method (Bld) [Velocity]49 mm/hr0-19 [facility] HospitalGlobulin Calc (S) [Mass/Vol]Ordered By: Perri Ceja on 91-77-7490Qshxpwft (S) [Mass/Vol]3.0 g/dLDayton Osteopathic HospitalGlucose [Mass/volume] in Serum or PlasmaOrdered By: Perri Ceja on 31-74-8682Fwjakhv [Mass/Vol]91 mg/jY24-305XvprpnexhDayton Osteopathic Hospital Comment on above:ADA recommended reference rangeRandom Glucose Reference Range is dependent on time and content of last meal. Glucose of more than 200 mg/dL in a nonstressed, ambulatory subject supports the diagnosisof Diabetes Mellitus. Hematocrit Auto (Bld) [Volume fraction]Ordered By: Perri Ceja on 11-06-2023 Hematocrit (Bld) [Volume fraction]38.9 %34.0-46.4FMercy Memorial HospitalHemoglobin [Mass/volume] in BloodOrdered By: Perri Ceja on 11-06-2023 Hemoglobin (Bld) [Mass/Vol]13.1 g/dL11.8-15.4FMercy Memorial Hospital Leukocytes [#/volume] corrected for nucleated erythrocytes in Blood by Automated counOrdered By: Perri Ceja on 67-36-8698QQJ corrected for nucl RBC Auto (Bld) [#/Vol]8.8 10*3/uL3.8-11.6FMercy Memorial HospitalLymphocytes Auto (Bld) [#/Vol]Ordered By: Perri Ceja on 27-15-0359Wpattweqnef (Bld) [#/Vol]1.5 10*3/uL1.00-4.8[facility] HospitalLymphocytes/100 WBC Auto (Bld)Ordered By: Perri Ceja on 65-17-6871Wseudcntldr/100 WBC (Bld)17.6 %.German HospitalH Auto (RBC) [Entitic mass]Ordered By: Perri Ceja on 01-60-1049USY (RBC) [Entitic mass]28.4 pg24.7-34.3FMercy Memorial HospitalMCHC Auto (RBC) [Mass/Vol]Ordered By: Perri Ceja on 97-84-6758TKJG (RBC) [Mass/Vol]33.6 g/dL32.0-35.0[facility]opathic HospitalMCV Auto (RBC) [Entitic vol]Ordered By: Perri Ceja on 55-10-1884FZG (RBC) [Entitic vol]84.6 pU61-861BddcylgnvDayton Osteopathic HospitalMonocytes Auto (Bld) [#/Vol]Ordered By: Perri Ceja on 09-32-3992Hglcmvxtx (Bld) [#/Vol]0.6 10*3/uL0.0-0.8[facility] HospitalMonocytes/100 WBC Auto (Bld) Ordered By: Perri Ceja on 47-62-2333Zkucwzqgv/100 WBC (Bld)6.6 %.[facility]opathic HospitalNeutrophils Auto (Bld) [#/Vol]Ordered By: Perri Ceja on 72-44-7428Qcudbzovodu (Bld) [#/Vol]6.3 10*3/uL1.8-7.7FMercy Memorial HospitalNeutrophils/100 WBC Auto (Bld)Ordered By: Perri Ceja on 43-00-0521Toqycecefkm/100 WBC (Bld)72.1 %.[facility] HospitalNo Panel InformationOrdered By: Perri Ceja on 77-84-1748Fimdjwioa GFR (CKD-EPI) 57.919 mL/MinDayton Osteopathic HospitalPharmacy Creatinine Clearance (ChemN/AFMercy Memorial HospitalNucleated erythrocytes [Presence] in Blood by Automated countOrdered By: Perri Ceja on 10-34-5286Tfbkzikqi RBC Auto Ql (Bld)0.1 /100{WBC}0-0.5FMercy Memorial HospitalPlatelet mean volume Auto (Bld) [Entitic vol]Ordered By: Perri Ceja on 31-17-9392Tkwbotcm mean volume (Bld) [Entitic vol]6.9 fL6.3-10.7FMercy Memorial Hospital Platelets Auto (Bld) [#/Vol]Ordered By: Perri Ceja on 49-29-4919Sdzttvobx (Bld) [#/Vol]393 10*3/yQ099-520RhajdhdhgDayton Osteopathic HospitalPotassium [Moles/volume] in Serum or PlasmaOrdered By: Perri Ceja on 11-06-2023 Potassium [Moles/Vol]3.8 mmol/L3.5-5.1FMercy Memorial HospitalProtein [Mass/volume] in Serum or PlasmaOrdered By: Perri Ceja on 25-70-7273Ueeiuma [Mass/Vol]7.7 g/dL6.4-8.9[facility]opathic HospitalRBC Auto (Bld) [#/Vol] Ordered By: Perri Ceja on 74-62-7098VPD (Bld) [#/Vol]4.60 10*6/uL3.60-5.[address] [facility] Hospitalerum or plasma albumin/globulin mass ratio Ordered By: Perri Ceja on 92-33-3975Fwvxfao/Globulin [Mass ratio]1.6 {ratio} [facility] Hospitalerum or plasma anion gap determinationOrdered By: Perri Ceja on 70-12-1006Wfpks gap [Moles/Vol]12.7 mmol/L6.0-15.[address] [facility] Hospitalodium [Moles/volume] in Serum or PlasmaOrdered By: Perri Ceja on 73-10-2171Qalbvr [Moles/Vol]139 mmol/T903-397GnhvogimrDayton Osteopathic HospitalUrea nitrogen [Mass/volume] in Serum or PlasmaOrdered By: Perri Ceja on 59-35-3829Iaej nitrogen [Mass/Vol]17 mg/dL7-25Day[facility] Osteopathic HospitalWBC Auto (Bld) [#/Vol]Ordered By: Perri Ceja on 37-04-4913VGE (Bld) [#/Vol]8.8 10*3/uL3.8-11.6FMercy Memorial Hospital PTH INTACTon 13-23-3951QWU, Ysdygh524 pg/mLCritically npdi14-56Ieu [facility] HospitalComment on above:Performed By: #### MG, URIC, RENAL #### [facility] [address] [place] [address] Dr. Hari PalmerFERRITINon 12-92-3704Dblitpmu [Mass/Vol]194.0 ng/mLCritically high6.2-137.0The [facility] HospitalComment on above:Performed By: #### MG, URIC, RENAL #### [facility] [address] [address] [address] Hari PalmerHEMOGRAM AND PLATELon 08-06-3091Fyhwyfdmdj (Bld) [Volume fraction]32.8 %Critically low36.0-48.0The [facility] HospitalComment on above: Performed By: #### MG, URIC, RENAL #### [facility] [address] [place] [address] Dr. Hari PalmerHemoglobin (Bld) [Mass/Vol]10.8 g/dLCritically low12.0-16.0The [facility] HospitalComment on above:Performed By: #### MG, URIC, RENAL #### [facility] [address] [place] [address] Dr. Hari Sargent (RBC) [Entitic mass]31.7 qrBpkjuo40.7-34.0The [facility] HospitalComment on above:Performed By: #### MG, URIC, RENAL #### [facility] [address] [place] [address] Dr. [facility]ER[facility] (RBC) [Mass/Vol]32.9 g/uDZwdhgf10.9-35.2The [place] HospitalComment on above:Performed By: #### MG, URIC, RENAL #### [facility] [address] [place] [address] Dr. Hari Sargent (RBC) [Entitic vol]96.2 rYVwpkqa24.0-99.0The [facility] Hospitalment on above:Performed By: #### MG, URIC, RENAL #### [facility] [address] [place] [address] Dr. Hari PalmerPLT297 103/ueRufgwv066-525Tkl [facility] HospitalComment on above: Performed By: #### MG, URIC, RENAL #### [facility] [address] [place] [address] Dr. Hari PalmerRBC3.41 106/ulCritically low4.20-5.40[facility] on above:Performed By: #### MG, URIC, RENAL #### [facility] [address] [place] [address] Dr. Hari PalmerWBC7.1 103/ulNormal4.0-11.0The [facility] HospitalComment on above: Performed By: #### MG, URIC, RENAL #### [facility] [address] [place] [address] Dr. Hari Riley AND TIBCon 07-29-2022% BNSTVDDWTF52.0 %NormalThe [facility] HospitalComment on above:Performed By: #### MG, URIC, RENAL #### [facility] [address] [place] [address] Dr. Hari Riley [Mass/Vol]48.0 ug/dLCritically low50.0-170.0The [facility] HospitalComment on above:Performed By: #### MG, URIC, RENAL #### [facility] [address] [place] [address] Dr. Hari PalmerTIBC TFOBXM902.0 ug/vRIjyepw276.0-450.0The [facility] Comment on above:Performed By: #### MG, URIC, RENAL #### [facility] [address] [place] [address] Dr. Hari PalmerMAGNESIUMon 08-38-8068Upnfpalrc [Mass/Vol]2.0 mg/dLNormal1.8-2.4 The [facility] HospitalComment on above:Performed By: #### MG, URIC, RENAL #### [facility] [address] [place] [address] Dr. Hari MorenoAL FUNCTION PANELon 30-85-7328Sysbrhi [Mass/Vol]3.6 g/dLNormal 3.4-5.0The [facility] HospitalComment on above:Performed By: #### MG, URIC, RENAL #### [facility] [address] [place] [address] Dr. Hari PalmerCalcium [Mass/Vol]8.7 mg/dLNormal8.5-10.1The [facility] Comment on above:Performed By: #### MG, URIC, RENAL #### [facility] [address] [place] [address] Dr. Hari PalmerChloride [Moles/Vol]104 mmol/BWfmugw37-193Wsj [facility] Comment on above:Performed By: #### MG, URIC, RENAL #### [facility] [address] [place] [address] Dr. Hari PalmerCO2 [Moles/Vol]21.8 mmol/QIbwkpq99.0-32.0The [facility] Comment on above:Performed By: #### MG, URIC, RENAL #### [facility] [address] [place] [address] Dr. Hari PalmerCreatinine [Mass/Vol]3.83 mg/dLCritically high0.55-1.02The [facility] HospitalComment on above:Performed By: #### MG, URIC, RENAL #### [facility] [address] [place] [address] Dr. Hari BrandtGFR-AF ZNUIVNMO27 mL/min/1.70t1Slcbqqfuvp low>=60The [facility] HospitalComment on above:Performed By: #### MG, URIC, RENAL #### [facility] [address] [place] [address] Dr. Hari BrandtGFR-NON AF PAICEZXD19 mL/min/1.92d6Quwoviqufs low>=60The [facility] HospitalComment on above:Performed By: #### MG, URIC, RENAL #### [facility] [address] [place] [address] Dr. Hari PalmerGlucose [Mass/Vol]108 mg/dLCritically ymmz39-555Gpq [facility] HospitalComment on above:Performed By: #### MG, URIC, RENAL #### [facility] [address] [place] [address] Dr. Hari PalmerPhosphate [Mass/Vol]5.4 mg/dLCritically high2.6-4.7The [facility] HospitalComment on above:Performed By: #### MG, URIC, RENAL #### [facility] [address] [place] [address] Dr. Hari PalmerPotassium [Moles/Vol]3.9 mmol/LNormal3.5-5.1The [facility] Comment on above:Performed By: #### MG, URIC, RENAL #### [facility] [address] [place] [address] Dr. Hari Matosdium [Moles/Vol]137 mmol/AKaccfc213-349SlmSelect Medical [facility] [place] Comment on above:Performed By: #### MG, URIC, RENAL #### [facility] [address] [place] [address] Dr. Hari PalmerUrea nitrogen [Mass/Vol]47.0 mg/dLCritically high7.0-18.0The [facility] HospitalComment on above:Performed By: #### MG, URIC, RENAL #### [facility] [address] [place] [address] Dr. Hari Britt ACID SERUMon 15-29-1370Qrmev [Mass/Vol]6.3 mg/dLCritically high2.6-6.0The [facility] HospitalComment on above:Performed By: #### MG, URIC, RENAL #### [facility] [address] [place] [address] Dr. Hari Hadley T PROTEIN CREAT RATIOon 46-81-1199Sggajge (U) [Mass/Vol] 29.7 mg/dLCritically high<=12.0The [facility] HospitalComment on above:Performed By: #### MG, URIC, RENAL #### [facility] [address] [place] [address] Dr. Hari Prince PROT CREAT RAT0.56NormalThe [facility] HospitalComment on above: Performed By: #### MG, URIC, RENAL #### [facility] [address] [place] [address] Dr. Hari Hadley CREAT53.35 mg/mKAyndbs39.00-300.00[facility] [place] Comment on above:Performed By: #### MG, URIC, RENAL #### [facility] [address] [place] [address] Dr. Hari PalmerVITAMIN D 25 OHon 11-42-8618AAZ D 25-OH38.8 ng/mLNormalThe [facility] HospitalComment on above:Performed By: #### MG, URIC, RENAL #### [facility] [address] [place], [place] [address] Dr. Hari Peng [facility] CENTERArmani [facility] County Regional Medical CenterComment on above: Result Comment: <20 ng/mL Vit D deficient 20 - <30 ng/mL Vit D insufficient 30 - 100 ng/mL Vit D sufficient >100 ng/mL Potential ToxicityPerformed By: #### MG, URIC, RENAL #### [facility] [address] [place], [place] [address] Dr. Hari PalmerAlbumin [Mass/volume] in Serum or PlasmaOrdered By: Stanley Forman on 86-01-1243Dlgxmig [Mass/Vol]3.9 g/dL3.2-5.5FMercy Memorial Hospital Basophils Auto (Bld) [#/Vol]Ordered By: Stanley Forman on 54-51-4799Ifqlhugks (Bld) [#/Vol]0.1 10*3/uL0.0-0.2FMercy Memorial HospitalBasophils/100 WBC Auto (Bld)Ordered By: Stanley Forman on 26-54-2678Seouqzkgp/100 WBC (Bld)0.7 % .[facility] HospitalBlood hemoglobin measurement (mass/volume) Ordered By: Stanley Forman on 93-87-7096Gdkjsfubhe (Bld) [Mass/Vol]10.8 g/dL 11.8-15.4FMercy Memorial HospitalBlood leukocytes automated count (number/volume)Ordered By: Stanley Forman on 63-74-2641EJG (Bld) [#/Vol]11.8 10*3/uL4.5-11.0[facility]opathic HospitalC reactive protein [Mass/volume] in Serum or PlasmaOrdered By: Stanley Forman on 83-69-5050CPC [Mass/Vol]5.2 mg/dL 0.0-1.0[facility] HospitalCreatinine and Glomerular filtration rate.predicted panel (S/P/Bld)Ordered By: Stanley Forman on 59-82-6864Mnykizdlru [Mass/Vol]4.49 mg/dL0.44-1.03[facility] HospitalEosinophils Auto (Bld) [#/Vol]Ordered By: Stanley Forman on 09-98-6846Ddccxierxrx (Bld) [#/Vol]0.4 10*3/uL0.0-0.45[facility] HospitalEosinophils/100 WBC Auto (Bld) Ordered By: Stanley Forman on 81-82-2434Sglmtycyebv/100 WBC (Bld)3.2 %.[facility] HospitalErythrocyte distribution width Auto (RBC) [Ratio]Ordered By: Stanley Forman on 91-61-1303Muyhqkztgab distribution width (RBC) [Ratio]14.0 % 11.9-15.3FMercy Memorial HospitalErythrocyte sedimentation rate by Photometric methodOrdered By: Stanley Forman on 48-02-2828XBD Photometric method (Bld) [Velocity]67 mm/hr0-19[facility]opathic HospitalEstimated glomerular filtration rate (GFR) non- AmericanOrdered By: Stanley Forman on 68-11-6579YTG/1.73 sq M.predicted among non-blacks MDRD (S/P/Bld) [Vol rate/Area]11 mL/MinDayton Osteopathic HospitalGlobulin Calc (S) [Mass/Vol] Ordered By: Stanley Forman on 50-74-0332Rlprqnsx (S) [Mass/Vol]3.5 g/dLDayton Osteopathic HospitalHematocrit Auto (Bld) [Volume fraction]Ordered By: Stanley Forman on 39-83-3489Gsgsuuvkjz (Bld) [Volume fraction]33.1 %34.0-46.4FMercy Memorial HospitalLaboratory - Hematology and Cell countsOrdered By: Stanley Forman on 79-80-7129Qsnnorqgl RBC/100 WBC (Bld) [Ratio]0.0 %0-0.5FMercy Memorial HospitalLymphocytes Auto (Bld) [#/Vol]Ordered By: Stanley Forman on 14-09-1209Iffxpjugnij (Bld) [#/Vol]1.5 10*3/uL1.00-4.8[facility] HospitalLymphocytes/100 WBC Auto (Bld)Ordered By: Stanley Forman on 36-25-2283Qspygcttlpd/100 WBC (Bld)12.3 %.[facility] Auto (RBC) [Entitic mass]Ordered By: Stanley Forman on 13-39-5321JBO (RBC) [Entitic mass]31.1 pg24.7-34.3FTriHealth McCullough-Hyde Memorial HospitalHC Auto (RBC) [Mass/Vol]Ordered By: Stanley Forman on 54-67-0389KYVG (RBC) [Mass/Vol]32.5 g/dL 32.0-35.0[facility] HospitalMCV Auto (RBC) [Entitic vol]Ordered By: Stanley Forman on 17-43-8092NJQ (RBC) [Entitic vol]95.6 kL84-570XzoeftelrDayton Osteopathic HospitalMonocytes Auto (Bld) [#/Vol]Ordered By: Stanley Forman on 70-71-4544Zvomaeyqs (Bld) [#/Vol]0.5 10*3/uL0.0-0.8[facility] HospitalMonocytes/100 WBC Auto (Bld)Ordered By: Stanley Forman on 06-20-2022 Monocytes/100 WBC (Bld)4.1 %.[facility]opathic HospitalNeutrophils Auto (Bld) [#/Vol]Ordered By: Stanley Forman on 17-02-6075Tqchctjnfii (Bld) [#/Vol]9.4 10*3/uL1.8-7.7FMercy Memorial HospitalNeutrophils/100 WBC Auto (Bld) Ordered By: Stanley Forman on 07-29-8779Qgvpyiwbhed/100 WBC (Bld)79.7 %.[facility] HospitalNo Panel InformationOrdered By: Stanley Forman on 62-09-6477Gscotyuvq GFR ()13 mL/MinDayton Osteopathic HospitalComment on above:GFR estimated reference range: According to KDOQI guidelines, <60 ml/min/1.73m2 is sufficient todiagnose a patient with chronic kidney disease.Pharmacy Creatinine Clearance (Chem16.48[facility]opathic HospitalPlatelet mean volume Auto (Bld) [Entitic vol]Ordered By: Stanley Forman on 18-52-7757Ugnkspji mean volume (Bld) [Entitic vol]7.0 fL6.3-10.7 [facility] HospitalPlatelets Auto (Bld) [#/Vol]Ordered By: Stanley Forman on 07-29-5534Juywjnloo (Bld) [#/Vol]287 10*3/gV467-100CrdnmgmluDayton Osteopathic HospitalProtein [Mass/volume] in Serum or PlasmaOrdered By: Stanley Forman on 76-63-7846Oeoylhh [Mass/Vol]7.4 g/dL6.1-7.9[facility] RBC Auto (Bld) [#/Vol]Ordered By: Stanley Forman on 02-75-6747GPG (Bld) [#/Vol] 3.46 10*6/uL3.60-5.00[facility] Hospitalerum or plasma alanine aminotransferase measurement without P-5'-P (enzymatic activiOrdered By: Stanley Forman on 27-91-1730YHD No additional P-5'-P [Catalytic activity/Vol]11 U/L10-[address] [facility] Hospitalerum or plasma albumin/globulin mass ratio Ordered By: Stanley Forman on 82-74-1738Nkghhci/Globulin [Mass ratio]1.1 {ratio} [facility] Hospitalerum or plasma alkaline phosphatase measurement (enzymatic activity/volume)Ordered By: Stanley Forman on 45-24-5175WCR [Catalytic activity/Vol]82 U/P88-05VfcqgxlszMercy Health St. Elizabeth [facility] Hospitalerum or plasma anion gap determinationOrdered By: Stanley Forman on 01-38-7351Xtprw gap [Moles/Vol]16.2 mmol/L6.0-15.0[facility] Hospitalerum or plasma aspartate aminotransferase measurement (enzymatic activity/volume)Ordered By: Stanley Forman on 90-20-9514ILU [Catalytic activity/Vol]15 U/I65-85FiaezohgrMercy Health St. Elizabeth Youngstown Hospitalerum or plasma calcium measurement (mass/volume)Ordered By: Stanley Forman on 42-67-9516Turnipy [Mass/Vol]9.3 mg/dL8.2-10.2FOhioHealth Arthur G.H. Bing, MD, Cancer Centererum or plasma chloride measurement (moles/volume) Ordered By: Stanley Forman on 88-31-1512Eyuvnzya [Moles/Vol]103 mmol/L95-[address] [facility] Hospitalerum or plasma glucose measurement (mass/volume)Ordered By: Stanley Forman on 65-78-8783Ptmejmf [Mass/Vol]75 mg/dL 70-100[facility] HospitalComment on above:ADA recommended reference rangeRandom Glucose Reference Range is dependent on time and content of last meal. Glucose of more than 200 mg/dL in a nonstressed, ambulatory subject supports the diagnosisof Diabetes Mellitus.Serum or plasma potassium measurement (moles/volume)Ordered By: Stanley Forman on 33-59-4058Ecurzteia [Moles/Vol]4.3 mmol/L3.5-5.1FOhioHealth Arthur G.H. Bing, MD, Cancer Centererum or plasma sodium measurement (moles/volume)Ordered By: Stanley Forman on 21-48-6407Gswand [Moles/Vol]135 mmol/W400-286YwyxbnljyMercy Health St. Elizabeth [facility] Hospitalerum or plasma total bilirubin measurement (mass/volume)Ordered By: Stanleymario Forman on 06-20-2022 Bilirubin [Mass/Vol]0.3 mg/dL0.3-1.2FOhioHealth Arthur G.H. Bing, MD, Cancer Centererum or plasma total carbon dioxide measurement (moles/volume)Ordered By: Stanley Forman on [id number] [Moles/Vol]20.1 mmol/L22.0-30.0[facility] Hospitalerum or plasma urea nitrogen measurement (mass/volume)Ordered By: Stanley Forman on 02-66-8095Sgfv nitrogen [Mass/Vol]42 mg/dL9-23[facility]opathic HospitalCOVID-19 Positive/NegativeOrdered By: Jesus Parham on 08-80-2733DQXQ-CoV-2 (COVID-19) N gene AMBERLY+probe Ql (Resp)NegativeNegative [facility] HospitalComment on above:Testing for SARS-CoV-2 by RT-PCR This test was developed and its performance characteristics determined by [employer] ([employer]) and validated at the [facility]. This test has not been FDA [...] and its performance characteristics determined by [employer] ([employer]) and validated at the [facility]. This test has not been FDA [...] authorization is terminated or revoked sooner.CA 125on 19-88-0038Czsxde Antigen (CA) 37184.8 U/mLNormal 0.0-38.1The [facility]edo HospitalComment on above:Result Comment: [employer] Electrochemiluminescence Immunoassay (ECLIA) . Values obtained with different assay methods or kits cannot be used interchangeably. Results cannot be interpreted as absolute evidence of the presence or absence of malignant disease.Performed By: #### MG, URIC, RENAL #### [facility] [address] [place] [address] Dr. Hari Rodriguez 77-42-8320JIO3.9 ng/mLNormal0.0-4.7[facility] Comment on above:Result Comment: Nonsmokers <3.9 Smokers <5.6 . [employer] Electrochemiluminescence Immunoassay (ECLIA) . Values obtained with different assay methods or kits cannot be used interchangeably. Results cannot be interpreted as absolute evidence of the presence or absence of malignant disease.Performed By: #### CEA. #### [facility] [address] [place] [address] Dr. Hari PalmerBasophils Auto (Bld) [#/Vol]Ordered By: Jesus Parham on 34-15-3259Hzoqatfzi (Bld) [#/Vol]0.0 10*3/uL0.0-0.2FMercy Memorial HospitalBasophils/100 WBC Auto (Bld)Ordered By: Jseus Parham on 06-05-2022 Basophils/100 WBC (Bld)0.3 %.[facility] HospitalBlood hemoglobin measurement (mass/volume)Ordered By: Jesus Parham on 36-26-5898Rogpzbnmco (Bld) [Mass/Vol]12.0 g/dL11.8-15.4FMercy Memorial HospitalBlood leukocytes automated count (number/volume)Ordered By: Jesus Parham on 74-94-3470MAS (Bld) [#/Vol]8.5 10*3/uL4.5-11.0[facility] Creatinine and Glomerular filtration rate.predicted panel (S/P/Bld)Ordered By: Jesus Parham on 63-32-9536Aprxnfqbfm [Mass/Vol]3.52 mg/dL0.44-1.03 [facility] HospitalEosinophils Auto (Bld) [#/Vol]Ordered By: Jesus Parham on 66-06-0301Cvuvwgujthj (Bld) [#/Vol]0.2 10*3/uL0.0-0.45 [facility] HospitalEosinophils/100 WBC Auto (Bld)Ordered By: Jesus Parham on 69-12-5215Hrbqgilofvk/100 WBC (Bld)2.7 %.[facility] HospitalErythrocyte distribution width Auto (RBC) [Ratio]Ordered By: Jesus Parham on 17-87-2846Zqfghwkpzqe distribution width (RBC) [Ratio] 14.2 %11.9-15.3FMercy Memorial HospitalEstimated glomerular filtration rate (GFR) non- AmericanOrdered By: Jesus Parham on 06-05-2022 GFR/1.73 sq M.predicted among non-blacks MDRD (S/P/Bld) [Vol rate/Area]14 mL/Min [facility] HospitalHematocrit Auto (Bld) [Volume fraction]Ordered By: Jesus Parham on 57-54-5450Xrbbydcvzn (Bld) [Volume fraction]35.8 % 34.0-46.4FMercy Memorial HospitalLaboratory - Hematology and Cell countsOrdered By: Jesus Parham on 02-30-5603Tkppupvqd RBC/100 WBC (Bld) [Ratio]0.1 %0-0.5FMercy Memorial HospitalLymphocytes Auto (Bld) [#/Vol] Ordered By: Jesus Parham on 36-95-5802Fxxqjlowxlq (Bld) [#/Vol]1.6 10*3/uL 1.00-4.8[facility] HospitalLymphocytes/100 WBC Auto (Bld)Ordered By: Jesus Parham on 66-37-1829Wjuglefppmb/100 WBC (Bld)19.3 %.[facility] HospitalH Auto (RBC) [Entitic mass]Ordered By: Jesus Parham on 86-94-1643HOY (RBC) [Entitic mass]31.5 pg24.7-34.3FTriHealth McCullough-Hyde Memorial HospitalHC Auto (RBC) [Mass/Vol]Ordered By: Jesus Parham on 35-69-3607PRWQ (RBC) [Mass/Vol]33.3 g/dL32.0-35.0[facility] HospitalMCV Auto (RBC) [Entitic vol]Ordered By: Jesus Parham on 06-05-2022 MCV (RBC) [Entitic vol]94.4 eR19-308GpotddaaxDayton Osteopathic HospitalMonocytes Auto (Bld) [#/Vol]Ordered By: Jesus Parham on 59-63-4559Tgcmuiwiz (Bld) [#/Vol]0.3 10*3/uL0.0-0.8[facility] HospitalMonocytes/100 WBC Auto (Bld)Ordered By: Jesus Parham on 36-79-7152Tzcocllnz/100 WBC (Bld)3.9 %. [facility] HospitalNeutrophils Auto (Bld) [#/Vol]Ordered By: Jesus Parham on 91-62-2761Cpueipejqrb (Bld) [#/Vol]6.2 10*3/uL1.8-7.7 [facility] HospitalNeutrophils/100 WBC Auto (Bld)Ordered By: Jesus Parham on 09-86-0542Atbzkfwujll/100 WBC (Bld)73.8 %.[facility] HospitalNo Panel InformationOrdered By: Jesus Parham on 36-83-3441Ebmidwoya GFR ()17 mL/MinDayton Osteopathic HospitalComment on above:GFR estimated reference range: According to KDOQI guidelines, <60 ml/min/1.73m2 is sufficient todiagnose a patient with chronic kidney disease.Pharmacy Creatinine Clearance (ChemN/[facility] Medical CenterPlatelet mean volume Auto (Bld) [Entitic vol]Ordered By: Jesus Parham on 47-69-5760Vufsfppy mean volume (Bld) [Entitic vol]7.3 fL6.3-10.7 [facility] HospitalPlatelets Auto (Bld) [#/Vol]Ordered By: Jesus Parham on 01-98-9577Zknjmypaf (Bld) [#/Vol]312 10*3/iW859-530WhssifhsvDayton Osteopathic HospitalRBC Auto (Bld) [#/Vol]Ordered By: Jesus Parham on 95-20-3635OVL (Bld) [#/Vol]3.80 10*6/uL3.60-5.00[facility] Hospitalerum or plasma anion gap determinationOrdered By: Jesus Parham on 40-68-3016Kqhmx gap [Moles/Vol]15.1 mmol/L6.0-15.0[facility] Hospitalerum or plasma calcium measurement (mass/volume)Ordered By: Jesus Parham on 29-57-7586Ppahywh [Mass/Vol]9.5 mg/dL8.2-10.2FOhioHealth Arthur G.H. Bing, MD, Cancer Centererum or plasma chloride measurement (moles/volume)Ordered By: Jesus Parham on 94-87-5872Nhnsosph [Moles/Vol]106 mmol/N29-257SylsranwbMercy Health St. Elizabeth Youngstown Hospitalerum or plasma glucose measurement (mass/volume)Ordered By: Jesus Parham on 58-42-6264Hmzsnhw [Mass/Vol]91 mg/gP43-552SornnhmgxDayton Osteopathic HospitalComment on above:ADA recommended reference range Random Glucose [...] potassium measurement (moles/volume)Ordered By: Jesus Parham on 69-74-4900Lylpozylu [Moles/Vol]4.4 mmol/L3.5-5.[address] [facility] Hospitalerum or plasma sodium measurement (moles/volume)Ordered By: Jesus Parham on 96-53-9740Ktaujx [Moles/Vol]137 mmol/P787-651JfuefxdrxMercy Health St. Elizabeth Youngstown Hospitalerum or plasma total carbon dioxide measurement (moles/volume)Ordered By: Jesus Parham on 06-05-2022 CO2 [Moles/Vol]20.3 mmol/L22.0-30.0[facility] Hospitalerum or plasma urea nitrogen measurement (mass/volume)Ordered By: Jesus Parham on 75-82-8166Ohyf nitrogen [Mass/Vol]38 mg/dL9-23[facility] PTH INTACTon 32-70-8381BLR, Ytxfbp988 pg/mLCritically nepy50-46Xwj [facility] HospitalComment on above:Performed By: #### MG, URIC, RENAL #### [facility] [address] [address] [address] Hari Peng 25-[place] LABCORPon 22-61-1224Sblhary D, 25-Ijjbywd94.6 ng/mL Rnrild57.0-100.0The [facility]edo HospitalComment on above:Result Comment: Vitamin D deficiency has been defined by the [place] of Medicine and an Endocrine Society practice guideline as a level of serum 25-OH vitamin D less than 20 ng/mL (1,2). The Endocrine Society went on to further define vitamin D insufficiency as a level between 21 and 29 ng/mL (2). 1. IOM ([place] of Medicine). 2010. Dietary reference intakes for calcium and D. [place]: The National Academies Press. 2. Chantel MF, Landen BURGOS, Eliseo CARDOZA, et al. Evaluation, treatment, and prevention of vitamin D deficiency: an Endocrine Society clinical practice guideline. JCEM. 2010; 96(7):1911-30.Performed By: #### MG, URIC, RENAL #### [facility] [address] [place] [address] Dr. Hari Arteaga AND RH TYPEon 35-59-9297SYW and Rh group Nom (Bld)ABO Rh Typing O Rh PositiveNormalThe Toledo HospitalComment on above:Performed By: #### MG, URIC, RENAL #### [facility] [address] [place] [address] Dr. Hari PalmerFERRITINon 07-68-5992Htiaiqad [Mass/Vol]273.0 ng/mLCritically high6.2-137.0[facility], AvonComment on above:Performed By: #### MG, URIC, RENAL #### [facility] [address] [place] [address] Dr. Hari PalmerHEMOGRAM AND PLATELon 48-21-8777Mxxhcgvdtr (Bld) [Volume fraction]33.9 %Critically low36.0-48.0The [facility]edo HospitalComment on above: Performed By: #### MG, URIC, RENAL #### [facility] [address] [place] [address] Dr. Hari PalmerHemoglobin (Bld) [Mass/Vol]11.4 g/dLCritically low12.0-16.0The [facility] HospitalComment on above:Performed By: #### MG, URIC, RENAL #### [facility] [address] [place] [address] Dr. Hari PalmerMCH (RBC) [Entitic mass]31.7 ulSfvzts47.7-34.0The [facility] HospitalComment on above:Performed By: #### MG, URIC, RENAL #### [facility] [address] [place] [address] Dr. Hari Sargent (RBC) [Mass/Vol]33.6 g/yPJhrrub66.9-35.2The [facility] HospitalComment on above:Performed By: #### MG, URIC, RENAL #### [facility] [address] [place] [address] Dr. Hari Sargent (RBC) [Entitic vol]94.2 mCNblxcs60.0-99.0The [facility] HospitalComment on above:Performed By: #### MG, URIC, RENAL #### [facility] [address] [place] [address] Dr. Hari PalmerPLT333 103/xuJdvtet518-342Vpi [facility] HospitalComment on above: Performed By: #### MG, URIC, RENAL #### [facility] [address] [place] [address] Dr. Hari WayC3.60 106/ulCritically low4.20-5.40The [facility] HospitalComment on above:Performed By: #### MG, URIC, RENAL #### [facility] [address] [place] [address] Dr. Hari PalmerWBC9.7 103/ulNormal4.0-11.0The [facility] HospitalComment on above: Performed By: #### MG, URIC, RENAL #### [facility] [address] [place] [address] Dr. Hari Riley AND TIBCon 04-27-2022% ELREJLNHGA10.1 %NormalThe [facility]edo HospitalComment on above:Performed By: #### MG, URIC, RENAL #### [facility] [address] [place] [address] Dr. Hari Riley [Mass/Vol]57.0 ug/hLCafpev87.0-170.0The [facility] on above:Performed By: #### MG, URIC, RENAL #### [facility] [address] [place] [address] Dr. Hari PalmerTIBC SAIITJ811.0 ug/dIIhsgqi444.0-450.0[facility] Comment on above:Performed By: #### MG, URIC, RENAL #### [facility] [address] [place] [address] Dr. Hari PalmerMAGNESIUMon 87-49-2210Gttntgjoh [Mass/Vol]2.1 mg/dLNormal1.8-2.4 The [facility] HospitalComment on above:Performed By: #### RENAL, URIC, MG #### [facility] [address] [place] [address] Dr. Hari PalmerRENAL FUNCTION PANELon 19-35-8860Okaymxx [Mass/Vol]3.6 g/dLNormal 3.4-5.0The [facility] HospitalComment on above:Performed By: #### RENAL, URIC, MG #### [facility] [address] [place] [address] Dr. Hari PalmerCalcium [Mass/Vol]9.0 mg/dLNormal8.5-10.1[facility] Comment on above:Performed By: #### RENAL, URIC, MG #### [facility] [address] [place] [address] Dr. Hari PalmerChloride [Moles/Vol]104 mmol/MYiayha40-488OlgSelect Medical [facility] Clinic [facility], [place] Comment on above:Performed By: #### RENAL, URIC, MG #### [facility] [address] [place] [address] Dr. Hari PalmerCO2 [Moles/Vol]23.0 mmol/NPaunbt97.0-32.0[facility] Comment on above:Performed By: #### RENAL, URIC, MG #### [facility] [address] [place] [address] Dr. Hari PalmerCreatinine [Mass/Vol]3.38 mg/dLCritically high0.55-1.02[facility], AvonComment on above:Performed By: #### RENAL, URIC, MG #### [facility] [address] [place] [address] Dr. Noriega ChangEGFR-AF KXVTSPCD28 mL/min/1.73y1Nvsvjdwfob low>=60The [facility] HospitalComment on above:Performed By: #### RENAL, URIC, MG #### [facility] [address] [place] [address] Dr. Noriega ChangEGFR-NON AF XZJLAJEM92 mL/min/1.99s0Lijvxmsqzo low>=60The [facility] HospitalComment on above:Performed By: #### RENAL, URIC, MG #### [facility] [address] [place] [address] Dr. Hari PalmerGlucose [Mass/Vol]113 mg/dLCritically mooa75-076Iec [facility] HospitalComment on above:Performed By: #### RENAL, URIC, MG #### [facility] [address] [place] [address] Dr. Hari PalmerPhosphate [Mass/Vol]4.4 mg/dLNormal2.6-4.7[facility] Comment on above:Performed By: #### RENAL, URIC, MG #### [facility] [address] [place] [address] Dr. Hari PalmerPotassium [Moles/Vol]4.0 mmol/LNormal3.5-5.1[facility] Comment on above:Performed By: #### RENAL, URIC, MG #### [facility] [address] [place] [address] Dr. Hari PalmerSodium [Moles/Vol]137 mmol/ZHtscmt756-162Dhs [facility] Comment on above:Performed By: #### RENAL, URIC, MG #### [facility] [address] [place] [address] Dr. Hari PalmerUrea nitrogen [Mass/Vol]44.0 mg/dLCritically high7.0-18.0The [facility] HospitalComment on above:Performed By: #### RENAL, URIC, MG #### [facility] [address] [place] [address] Dr. Hari PalmerURIC ACID SERUMon 77-39-1530Jjgss [Mass/Vol]6.6 mg/dLCritically high2.6-6.0The [facility] HospitalComment on above:Performed By: #### RENAL, URIC, MG #### [facility] [address] [place], [place] [address] Dr. Hari Hadley T PROTEIN CREAT RATIOon 13-36-5519Dlysixl (U) [Mass/Vol] 31.4 mg/dLCritically high<=12.0The [facility] HospitalComment on above:Performed By: #### MG, URIC, RENAL #### [facility] [address] [address] [address] Hari Prince PROT CREAT RAT0.55NormalThe [facility]edo HospitalComment on above: Performed By: #### MG, URIC, RENAL #### [facility] [address] [address] [address] Hari Hadley CREAT57.50 mg/aFGwwbcr41.00-300.00[facility] Comment on above:Performed By: #### MG, URIC, RENAL #### [facility] [address] [address] [address] Hari BrandtCHOCARDIEma M/2D COMPLETEon 37-81-3810HLYTJFWODB M/2D COMPLETE Patient: MANDEEP PURI Exam Date: 03/29/2022 : 1975 Gender:F Ordering : HAIDER FRENCH M.D. Admission #: [id number] Family : Order #: [id number] CLICK HERE TO VIEW EXAM ECHOCARDIOGRAM REPORT [...] Area(A4C): 17.00 cm2 Left Atrium Systolic Volume(A2C): 59513 mm3 Left Atrium Systolic Volume(A4C): 94205 mm3 Mitral Valve MV E to A Ratio: 0.80 Deceleration Hill: 3210 mm/s2 Mitral Valve A-Wave Peak Velocity: [...] by: Damian Alonzo M.D. on 04/01/2022 at 12:33[facility] HospitalCOVID-19 SOFIAOrdered By: Shabbir Jones on 82-16-7284QCNO-CoV+SARS-CoV-2 (COVID-19) Ag IA.rapid Ql (Resp)NegativeNegativeDayton Osteopathic HospitalComment on above:This is a duplicate Ada SARS Antigen (GLORIA) result to be used for statistical tracking purpose only.No Panel InformationOrdered By: Shabbir Jones on 83-50-7509LNLF Antigen (LFIA)[facility] BLOOD TYPE AND RHon 98-45-4201CHB INTERPRETATIONONoSt. Vincent HospitalComment on above:Performed By: #### 60207, 68870, 50617, 55466, 03686 #### [facility] [address] [place] [address], [place] INTERPRETATIONPositiveCleveland Clinic Marymount HospitalComment on above:Performed By: #### 07120, 45831, 14248, 26400, 26171 #### [facility] [address] [place] [address], [facility] MEDICAL CENTERBNP (B-TYPE NATRIURETIC PEPTIDE)on 67-85-4162Vzkbypaofjr peptide B (Bld) [Mass/Vol]10 pg/mLNormal0-100The [facility] HospitalComment on above:Result Comment: Given the appropriate clinical setting a BNP result of >100 pg/mL indicates congestive heart failure.Performed By: #### 53605, 72330 #### [facility] [address] [place] [address], [facility] MEDICAL CENTERCBC W/DIFFon 86-30-5534WIO IMM GRANS0.2 10*3/uLNormal 0.0-0.2The [facility] HospitalComment on above:Performed By: #### 52081, 36710, 75116, 42949, 70034 #### [facility] [address] [place] [address], USAABS NEUTROPHILS7.8 10*3/uLHigh1.6-7.6The [facility] HospitalComment on above:Performed By: #### 42879, 49766, 13950, 88320, 96742 #### [facility] [address] [place] [address], USABasophils (Bld) [#/Vol]0.1 10*3/uLNormal0.0-0.2The [facility] HospitalComment on above:Performed By: #### 62001, 19715, 80860, 93040, 15073 #### [facility] [address] [place] [address], USABasophils/100 WBC (Bld)0.6 %Normal0.0-1.0The [facility] Elizabeth Board[facility] HospitalComment on above:Performed By: #### 10614, 83548, 97197, 04242, 16760 #### [facility] [address] [place] [address], USAEosinophils (Bld) [#/Vol]0.3 10*3/uLNormal0.0-0.5The [facility] HospitalComment on above:Performed By: #### 56922, 42941, 07361, 81945, 71864 #### [facility] [address] [place] [address], USAEosinophils/100 WBC (Bld)2.5 %Normal0.0-6.0The [facility] Board[facility] HospitalComment on above:Performed By: #### 17550, 70069, 81496, 84622, 28094 #### [facility] [address] [place] [address], USAErythrocyte distribution width (RBC) [Ratio]13.6 %Normal 11.5-15.0The [facility] Elizabeth Board[facility] HospitalComment on above:Performed By: #### 69433, 44309, 21848, 23336, 26976 #### [facility] [address] [place] [address], USAHematocrit (Bld) [Volume fraction]34.5 %Low36.0-45.0The [facility] HospitalComment on above:Performed By: #### 78428, 88101, 55063, 32732, 35590 #### [facility] [address] [place] [address], USAHemoglobin (Bld) [Mass/Vol]11.3 g/dLLow12.0-15.0The [facility] HospitalComment on above:Performed By: #### 79031, 67075, 49971, 87221, 61863 #### [facility] [address] [facility] [place] [address], USAIMMATURE GRANS1.4 %High0.0-1.0The [facility] Elizabeth Boardman HospitalComment on above:Performed By: #### 18239, 00465, 86883, 09208, 28938 #### [facility] [address] [place] [address], USALymphocytes (Bld) [#/Vol]2.0 10*3/uLNormal1.2-4.0The [facility] HospitalComment on above:Performed By: #### 93519, 86660, 74097, 89155, 35338 #### [facility] [address] [place] [address], USALymphocytes/100 WBC (Bld)18.6 %Low20.0-45.0The [facility] Board[facility] HospitalComment on above:Performed By: #### 20997, 62368, 94876, 55633, 65306 #### [facility] [address] [place] [address], USAMCH (RBC) [Entitic mass]31.3 udEieojf90.0-33.0The [facility] Board[facility] HospitalComment on above:Performed By: #### 12115, 41125, 14864, 75480, 71970 #### [facility] [address] [place] [address], [facility] MEDICAL CENTERMCHC (RBC) [Mass/Vol]32.8 g/sJJunbka42.0-35.0The [facility] HospitalComment on above:Performed By: #### 93567, 77608, 65356, 47612, 25563 #### [facility] [address] [place] [address], [facility] MEDICAL CENTERMCV (RBC) [Entitic vol]95.6 xOWpmbpw16.0-98.0The [facility] HospitalComment on above:Performed By: #### 23748, 17758, 80180, 84709, 61463 #### [facility] [address] [place] [address], USAMonocytes (Bld) [#/Vol]0.5 10*3/uLNormal0.1-1.0The [facility] HospitalComment on above:Performed By: #### 39894, 16161, 92956, 34044, 60403 #### [facility] [address] [place] [address], USAMONOS4.9 %Low5.0-12.0The [facility] Board[facility] HospitalComment on above:Performed By: #### 11888, 74106, 46625, 67462, 83835 #### [facility] [address] [place] [address], USANeutrophils/100 WBC (Bld)72.0 %Bjmsne95.0-72.0The [facility] HospitalComment on above:Performed By: #### 91667, 33233, 67127, 88529, 92877 #### [facility] [address] [place] [address], USANucleated RBC/100 WBC (Bld) [Ratio]0 %Normal0-0The [facility] Board[facility] HospitalComment on above:Performed By: #### 99541, 76349, 14662, 48238, 27484 #### [facility] [address] [place] [address], USAPLAT EUC102 10*3/aBBrdtsd602-741Oss [facility] HospitalComment on above:Performed By: #### 43588, 84859, 14312, 72702, 18924 #### [facility] [address] [place] [address], USARBC (Bld) [#/Vol]3.61 10*6/uLLow3.80-5.00The [facility] HospitalComment on above:Performed By: #### 10048, 73624, 68978, 98311, 80024 #### [facility] [address] [place] [address], USAWBC (Bld) [#/Vol]10.78 10*3/uLHigh4.00-10.60The [facility] HospitalComment on above:Performed By: #### 99383, 62233, 22770, 57899, 39736 #### [facility] [address] [place] [address], USACHEST AND [facility] 10-83-9905LMKNV AND [facility] Department of Radiology [address] [place] [id number] Patient Name: MANDEEP PURI : 1975 [...] pathology. Electronically signed: Royal Dominguez. Transcribed by: [email or web address], User Resident: Electronically Signed by: ROYAL DOMINGUEZ @ 02/13/2022 11:[address] [facility] HospitalCMV IGG BLOODon 18-37-3812GNA IGG3.13Normal The [facility] Board[facility] HospitalComment on above:Result Comment: NORMAL RANGES: < OR = 0.9O NEGATIVE ; NO DETECTABLE IgG ANTIBODY TO CMV 0.91 - 1.09 EQUIVOCAL; REPEAT TESTING SUGGESTED > OR = 1.10 POSITIVE ; INDICATES PRESENCE OF DETECTABLE IgG ANTIBODY TO CMVPerformed By: #### 74977, 19556, 94614, 57735, 98576 #### [facility] [address] [place] [address], USACOMP METABOLIC PANELon 72-96-4599Edotpuw [Mass/Vol]4.5 g/dL Normal3.5-5.7The [facility] HospitalComment on above:Performed By: #### 40931, 75050, 85190 #### [facility] [address] [place] [address], USAALKALINE DVECJZ65 IU/RNmjnnq67-467Xni [facility] HospitalComment on above:Performed By: #### 24641, 66800, 56456 #### [facility] [address] [place] [address], USAALT [Catalytic activity/Vol]12 U/LNormal7-52The [facility] HospitalComment on above:Performed By: #### 48616, 33964, 73852 #### [facility] [address] [place] [address], USAAST [Catalytic activity/Vol]13 U/YXvebud14-06Hjt [facility] HospitalComment on above:Performed By: #### Padma, 46256, 20349 #### [facility] [address] [place] [address], USABilirubin [Mass/Vol]0.3 mg/dLNormal0.3-1.0The [facility] HospitalComment on above:Performed By: #### Padma, 57632, 40596 #### [facility] [address] [place] [address], USACalcium [Mass/Vol]9.5 mg/dLNormal8.6-10.3The [facility] HospitalComment on above:Performed By: #### 99109, 65978, 88933 #### [facility] [address] [place] [address], USAChloride [Moles/Vol]103 mmol/HKrwvaw79-542Rii [facility] HospitalComment on above:Performed By: #### 94995, 47530, 68914 #### [facility] [address] [place] [address], USACO2 [Moles/Vol]22 mmol/BXnhjpe17-77Pgq [facility] HospitalComment on above:Performed By: #### 29573, 49648, 44625 #### [facility] [address] [place] [address], USACreatinine [Mass/Vol]3.51 mg/dLHigh0.60-1.20The [facility] HospitalComment on above:Performed By: #### 36249, 78828, 76492 #### [facility] [address] [place] [address], USAeGFR- Ifkpsjcu33 ml/min/1.73sq mAbnormal>60The [facility] HospitalComment on above:Performed By: #### Padma, 04351, 72760 #### [facility] [address] [place] [address], USAeGFR- non- Jflgsnue25 ml/min/1.73sq mAbnormal>60The [facility] HospitalComment on above:Performed By: #### Padma, 52095, 33417 #### [facility] [address] [place] [address], USAGlucose [Mass/Vol]100 mg/xKOijfbr43-375Kbi [facility] HospitalComment on above:Performed By: #### Padma, 50242, 40529 #### [facility] [address] [place] [address], USAPotassium [Moles/Vol]3.9 mmol/LNormal3.5-5.1The [facility] HospitalComment on above:Performed By: #### Padma, 73620, 13101 #### [facility] [address] [place] [address], USAProtein [Mass/Vol]8.0 g/dLNormal6.0-8.3The [facility] HospitalComment on above:Performed By: #### Padma, 32061, 71544 #### [facility] [address] [place] [address], USASodium [Moles/Vol]136 mmol/OVixzmn419-774Jjo [facility] HospitalComment on above:Performed By: #### Padma, 27758, 49561 #### [facility] [address] [place] [address], USAUrea nitrogen [Mass/Vol]41 mg/dL16 Hernandez StreetComment on above:Performed By: #### 13818, 99932, 14646 #### [facility] [address] [place] [address], USACREATININE URINE RANDOMon 23-50-2585Rzqftaytli (U) [Mass/Vol]63.0 mg/dLCleveland Clinic Marymount HospitalComment on above:Result Comment: There are no established reference values for random urine specimensPerformed By: #### 78406, 78844, 15120, 85764, 15668 #### [facility] [address] [place] [address], USACT RENAL RECIPIENT ABDOMEN AND PEVLIS WO CONTRASTon 80-50-5367KP RENAL RECIPIENT ABDOMEN AND PEVLIS WO CONTRASTUnRiverview Health Institute Department of Radiology [address] [place] [address] Patient Name: MANDEEP PURI : 1975 Sex: F Age: Race: White Pt. Location: 20 Patient Status: O Ordered Date: 02/12/2022 1:55:00 PM Completed Date: 02/12/2022 02:04 PM Requesting Provider: HAIDER FRENCH Attending Provider: HAIDER FRENCH Report Copy To: Signs & Symptoms: Z01.818 Encounter for other preprocedural examination I10 History: [place] Comments: , Pre-kidney transplant work-up. Please evaluate [...] achievable. Electronically signed: NAN SARAVIA. Transcribed by: [email or web address], User Resident: Electronically Signed by: NAN SARAVIA @ 02/12/2022 02:[address] [facility] HospitalComment on above:Order Comment: , Pre-kidney transplant work-up. Please evaluate vessels for kidney transplant , Height (ft.): 5 ft 2 in , Weight (lbs): 207 , Pre-kidney transplant work-up. Please evaluate vessels for kidney transplant , Height (ft.): 5 ft 2 in , Weight (lbs): 207 , , , Ordering Provider- HAIDER FRENCH MD , DIRECT BILI on 61-78-6990Cmoaudzbd.direct [Mass/Vol]0.0 mg/dLNormal0.0-0.2The [facility] HospitalComment on above:Performed By: #### 97876, 10679, 36102 #### [facility] [address] [place] [address], USAEPSTEIN LAGUERRE VIRUS ABon 77-20-5206EY VCA IGG2.35NormAccess Hospital DaytonComment on above:Order Comment: CONSISTENT WITH PAST EBV INFECTIONResult Comment: NORMAL RANGES: < OR = 0.9O NEGATIVE ; NO DETECTABLE IgG ANTIBODY TO EBV-VCA 0.91 - 1.09 EQUIVOCAL; REPEAT TESTING SUGGESTED > OR = 1.10 POSITIVE ; INDICATES PRESENCE OF DETECTABLE IgG ANTIBODY TO EBVPerformed By: #### 21009, 11013, 13945, 24339, 58636 #### [facility] [address] [place] [address], USAEB VCA IGM0.00NoSt. Vincent Hospital Comment on above:Order Comment: CONSISTENT WITH PAST EBV INFECTIONResult Comment: NORMAL RANGES: < OR = 0.9O NEGATIVE ; NO SIGNIFICANT LEVEL OF DETECTABLE EBV-VCA IgM AB 0.91 - 1.09 EQUIVOCAL; REPEAT TESTING SUGGESTED > OR = 1.10 POSITIVE ; SIGNIFICANT LEVEL OF DETECTABLE EBV-VCA IgM ABPerformed By: #### 72477, 64394, 38327, 08310, 00312 #### [facility] [address] [place] [address], USAHEMOGLOBIN A1Con 62-71-9349Aefpvyi [Moles/Vol]120 mmol/L NormalThe [facility] HospitalComment on above:Performed By: #### 58832, 85605 #### [facility] [address] [facility] [place] [address], NTNVyK5c (Bld) [Mass fraction]5.8 %Normal4.0-6.0The [facility] HospitalComment on above:Performed By: #### 57397, 74492 #### [facility] [address] [facility] [place] [address], USAHEPATITIS A ANTIBODY IGMon 99-41-4252NOO A AB IGM Non-ReactiveNormalNONREACTIVEThe [facility] HospitalComment on above:Performed By: #### 28088, 45946, 37249, 02714, 70305 #### [facility] [address] [place] [address], USAHEPATITIS B CORE ANTIBODYon 06-53-6422ZAH B CORE AB Non-ReactiveNormalNONREACTIVEThe [facility] HospitalComment on above:Performed By: #### 21438, 62522, 71335, 61016, 64022 #### [facility] [address] [facility] [place] [address], USAHEPATITIS B SURFACE ANTIBODY QUANTon 50-95-4616HLO B SURF AB1.14 mIU/mlNormalThe [facility] HospitalComment on above: Result Comment: INTERPRETATION: NONREACTIVE<8.00 mIU/mL INDETERMINATE8.00 - 12.00 mIU/mL REACTIVE>12 mIU/mLPerformed By: #### 11857, 78282, 13183, 21297, 62952 #### [facility] [address] [place] [address], USAHEPATITIS B SURFACE ANTIGEN QUALon 80-47-4273URI B SURF AG QUALNon-ReactiveNormalNONREACTIVEThe [facility] HospitalComment on above:Performed By: #### 68576, 75741, 77552, 14996, 42330 #### [facility] [address] [place] [address], USAHEPATITIS C ANTIBODYon 28-67-4205SGMB-HCVNon-ReactiveNormal NONREACTIVEThe [facility] HospitalComment on above:Performed By: #### 27985, 33912, 54571, 09216, 87951 #### [facility] [address] [place] [address], USAHIV1 AND 2 COMBO 4Gon 79-93-8411JCU COMBONegativeNormal NEGATIVEThe [facility] HospitalComment on above:Performed By: #### 27252, 18080, 80954, 77843, 06196 #### [facility] [address] [place] [address], USAHLA ABC CLASS I TYPINGon 2A*-1 LDEUGTSXUA2Rtaddq The [facility] HospitalComment on above:Order Comment: Some of the [...] not probable, due to frequency.Performed By: #### 72398, 36977, 97056, 87263, 26599 #### [facility] [address] [place] [address], *-2 ZHPBYUUPQA5CqgesvOro [facility] HospitalComment on above:Order Comment: Some of the [...] probable, due to frequency. Performed By: #### 12675, 80726, 86939, 85409, 67544 #### [facility] [address] [place] [address], USAB*-1 CZSVQHAGOM63PbirqnSpzCleveland Clinic Marymount HospitalComtrinity health [facility] on above:Order Comment: Some of the [...] probable, due to frequency. Performed By: #### 29886, 78628, 13630, 46103, 07045 #### [facility] [address] [place] [address], USAB*-2 XLZYPDGBAO11OixspfFatCleveland Clinic Marymount HospitalComtrinity health livingston hospital on above:Order Comment: Some of the [...] probable, due to frequency. Performed By: #### 33843, 27990, 48179, 09666, 45452 #### [facility] [address] [place] [address], USABw*-1 WKXWZJALPY8ZbernbRnoCleveland Clinic Marymount HospitalComment on above:Order Comment: Some of the [...] probable, due to frequency. Performed By: #### 21430, 39047, 40059, 78853, 53667 #### [facility] [address] [place] [address], USABw*-2 HGGDBUYUEA6YcrllgRwrCleveland Clinic Marymount HospitalComment on above:Order Comment: Some of the [...] probable, due to frequency. Performed By: #### 37702, 87105, 13410, 23976, 34915 #### [facility] [address] [facility] [address], USAC*-1 MFCFROMZYY0SsizvaDswCleveland Clinic Marymount HospitalComment on above:Order Comment: Some of the [...] probable, due to frequency. Performed By: #### 23860, 87835, 29456, 24904, 61216 #### [facility] [address] [place] [address], USAC*-2 DATWUOUWVX4ZfdwbyQmuCleveland Clinic Marymount HospitalComment on above:Order Comment: Some of the [...] probable, due to frequency. Performed By: #### 48501, 33192, 38523, 20632, 43862 #### [facility] [address] [place] [address], USAMETHODClass I Typing by PCR-SSOP LuminexCleveland Clinic Marymount HospitalComment on above:Order Comment: Some of the [...] not probable, due to frequency.Performed By: #### 48877, 43424, 76200, 29445, 54496 #### [facility] [address] [place] [address], USASIGNED [facility] Comment on above:Order Comment: Some of the [...] due to frequency.Result Comment: Nelson Noriega, MS,CHT(DONA),MT(ASCP) Swing Tender, Transplant ImmunologyPerformed By: #### 36187, 95399, 51007, 35256, 14136 #### [facility] [address] [place] [address], [address] CLASS II TYPINGon 76-96-8747ZAF6*-1 NDVICUZUSH02:01 [facility] HospitalComment on above:Order Comment: Some of the [...] not probable, due to frequency.Performed By: #### 19859, 83700, 33515, 12287, 84204 #### [facility] [address] [place] [address], USADPB1*-2 LSJEZLXDBJ98:02NoSt. Vincent HospitalComment on above:Order Comment: Some of the [...] probable, due to frequency. Performed By: #### 71209, 63963, 63671, 46501, 12396 #### [facility] [address] [place] [address], USADQA1*-1 PQFHAXFFGX58MfxzdmBodCleveland Clinic Marymount HospitalComment on above:Order Comment: Some of the [...] probable, due to frequency. Performed By: #### 79638, 99778, 02231, 63388, 86455 #### [facility] [address] [place] [address], USADQA1*-2 RSIDQQJZVO74UimbghBolCleveland Clinic Marymount HospitalComment on above:Order Comment: Some of the [...] probable, due to frequency. Performed By: #### 04441, 48292, 98550, 20733, 16628 #### [facility] [address] [place] [address], USADQB1*-[address]JQANWN[address] [place], [place] [address]Comment on above:Order Comment: Some of the reagents [...] probable, due to frequency. Performed By: #### 38564, 61131, 51490, 72022, 69900 #### [facility] [address] [place] [address], USADQB1*-2 KLUGHIGIIJ8NbfyciEfxCleveland Clinic Marymount HospitalComment on above:Order Comment: Some of the [...] probable, due to frequency. Performed By: #### 08875, 41596, 25329, 14867, 78156 #### [facility] [address] [place] [address], USADRB1*-1 MEJJZEDJYT[address]juAd[address] [place], [place] [address]Comment on above:Order Comment: Some of the reagents [...] probable, due to frequency. Performed By: #### 94182, 12089, 88974, 70259, 83066 #### [facility] [address] [place] [address], USADRB1*-2 [address]QTNKXRCT14V[address]agaIis[address] [place], [place] [address]Comment on above:Order Comment: Some of the reagents [...] probable, due to frequency. Performed By: #### 84092, 94555, 45916, 15926, 25448 #### [facility] [address] [place] [address], USADRB3*-1 ZLYOMZORGZ19RvgbgoOuz[address] [place], [place] [address]Comment on above:Order Comment: Some of the reagents used for clinical histocompatibility testing havebeen approved by the [facility] for research only. Through our certificationby CLIA to perform high complexity testing and through our stringentquality control program, these reagents have been rigorously tested andvalidated for clinical use. Typing performed may include components ofSSOP and/or SSP testing in order to obtain a valid HLA typing. Otherrare HLA alleles may be possible, but not probable, due to frequency. Performed By: #### 26938, 38736, 34651, 00010, 13792 #### [facility] [address] [place] [address], USAMETHODClass II Typing by PCR-SSOP LuminexNoKindred Hospital Limae [facility] HospitalComment on above:Order Comment: Some of the [...] not probable, due to frequency.Performed By: #### 84549, 20680, 31559, 60550, 42953 #### [facility] [address] [place] [address], USALIPID PROFILEon 85-00-3739Hudtwevnjug [Mass/Vol]221 mg/dL Tcxd500-963Fvk [facility] HospitalComment on above:Result Comment: CHOLESTEROL REFERENCE RANGE: 20 YEARS AND OLDER CARDIOVASCULAR RISK Less than 200 mg/dl Low Risk 200 to 239 mg/dl Borderline Risk 240 mg/dl and greater High RiskPerformed By: #### 75579, 12502, 37576, 73373, 59099 #### [facility] [address] [place] [address], USACholesterol in HDL [Mass/Vol]40 mg/dBQqzywx71-01Mkt [facility] HospitalComment on above:Result Comment: Slight variation in normal range could be due to gender and/or age. HDL CHOLESTEROL REFERENCE RANGE: 20 years and older Cardiovascular Risk > or =60 mg/dL Desirable 40 TO 59 mg/dL Low Risk <40 mg/dL High RiskPerformed By: #### 80121, 11912, 52578, 86440, 98221 #### [facility] [address] [place] [address], USACholesterol in LDL [Mass/Vol]101 mg/dLNormal0-130The [facility] HospitalComment on above:Result Comment: LDL IS A CALCULATION LDL IS ONLY VALID IF THE TRIG IS LESS THAN 400.Performed By: #### 51698, 44246, 23858, 42202, 59163 #### [facility] [address] [place] [address], USACholesterol.total/Cholesterol in HDL [Mass ratio]5.5 {ratio}High.0-4.5The [facility] HospitalComment on above: Performed By: #### 81125, 29498, 86849, 25625, 70590 #### [facility] [address] [place] [address], USANON-HDL NHMUQJQGZHN794 mg/dLNoSt. Vincent HospitalComment on above:Performed By: #### 22688, 17313, 03212, 14850, 85412 #### [facility] [address] [place] [address], USATriglyceride [Mass/Vol]402 mg/fIOixn23-726Hwz [facility] HospitalComment on above:Result Comment: TRIGLYCERIDE REFERENCE RANGE: 20 YEARS AND OLDER CARDIOVASCULAR RISK LESS THAN 150 mg/dl LOW RISK 150 TO 199 mg/dl BORDERLINE RISK 200 mg/dl AND GREATER HIGH RISKPerformed By: #### 14385, 37563, 75120, 58042, 14057 #### [facility] [address] [place] [address], USAVLDL CHOL80 mg/dLHigh0-40The [facility] HospitalComment on above:Performed By: #### 93799, 91763, 43960, 48636, 64395 #### [facility] [address] [place] [address], USAMUMPS IGG BLDon 77-05-3454DVKEG IGG5.46NoSt. Vincent HospitalComment on above:Result Comment: NORMAL RANGES: < OR = 0.9O NEGATIVE ; NO DETECTABLE IgG ANTIBODY TO MUMPS 0.91 - 1.09 EQUIVOCAL; REPEAT TESTING SUGGESTED > OR = 1.10 POSITIVE ; INDICATES PRESENCE OF DETECTABLE IgG ANTIBODY TO MUMPSPerformed By: #### 46431, 76344, 91309, 56852, 39287 #### [facility] [address] [place] [address], USARUBELLAon 90-06-2164HYEPYIG7.79[facility] HospitalComment on above:Result Comment: NORMAL RANGES: < OR = 0.9O NEGATIVE ; NO DETECTABLE IgG ANTIBODY TO RUBELLA 0.91 - 1.09 EQUIVOCAL; REPEAT TESTING SUGGESTED > OR = 1.10 POSITIVE ; INDICATES PRESENCE OF DETECTABLE IgG ANTIBODY TO RUBELLA VIRUSPerformed By: #### 72864, 72501, 91377, 83509, 44816 #### [facility] [address] [place] [address], USARUBEOLA MEASLES IGGon 90-08-0480BKOAR IGG6.43NoSt. Vincent HospitalComment on above:Result Comment: NORMAL RANGES: < OR = 0.9O NEGATIVE ; NO DETECTABLE IgG ANTIBODY TO RUBEOLA 0.91 - 1.09 EQUIVOCAL; REPEAT TESTING SUGGESTED > OR = 1.10 POSITIVE ; INDICATES PRESENCE OF DETECTABLE IgG ANTIBODY TO RUBEOLAPerformed By: #### 57627, 68621, 81054, 14757, 12905 #### [facility] [address] [place] [address], USASINGLE ANTIGEN CLASS 1on 57-16-3417QNPKZZJskth I Single AntigenNoSt. Vincent HospitalComment on above:Order Comment: Some of the [...] not probable, due to frequency.Performed By: #### 37431, 28618, 29296, 29669, 54661 #### [facility] [address] [place] [address], USASINGLE ANTIGEN CLASS 2on 84-83-9779JKRCUOTVItjftgZhlProMedica Memorial HospitalComment on above:Order Comment: Some of the [...] added to the watch list.Performed By: #### 63212, 42622, 07714, 02640, 71800 #### [facility] [address] [place] [address], USAResult Comment: Class I Antigen Microbeads Potential specificites added to the watch list.FDYY3YvcjjhRfjCleveland Clinic Marymount HospitalComment on above:Order Comment: Some of the [...] probable, due to frequenc y.Performed By: #### 09776, 91207, 19130, 34324, 38666 #### [facility] [address] [place] [address], USAMETHODClass II Single AntigenNoSt. Vincent HospitalComment on above:Order Comment: Some of the [...] probable, due to frequency. Performed By: #### 27521, 54922, 42561, 65941, 82941 #### [facility] [address] [place] [address], USAT PROT UR Yesy 02-12-2022U TOTAL DTMIKGZ21.0 mg/dLNormal The [facility] HospitalComment on above:Result Comment: There are no established reference values for random urine specimensPerformed By: #### 78985, 24108, 04696, 76366, 83465 #### [facility] [address] [place] [address], USATB QUANTIFERON PLUSon 66-37-0264RPYVHFO MINUS NIL>10.[address] [facility] HospitalComment on above:Performed By: #### 00497 #### [facility] [address] [place] [address], USANIL0.03 IU/mLNormalThe [facility] Comment on above:Performed By: #### 96627 #### [facility] [address] [place] [address], USATB QUANTIFERONNegativeNormalNEGATIVEThe [facility] HospitalComment on above:Result Comment: Quantiferon TB Gold Interpretation (IU/mL): NEGATIVE: M. tuberculosis infection not likely. Nil: <=8.0 TB1 Antigen minus Nil (NT3OM-BIR): <0.35 OR >=0.35; and <25% of Nil value. TB2 Antigen minus Nil (XE7FS-JNY): <0.35 OR >=0.35; and <25% of Nil value. Mitogen minus Nil (MARY-NIL): >=0.50 NOTE: Diagnosing or excluding tuberculosis disease, and assessing the probability of LTBI, requires a combination of epidemiological, historical, medical, and diagnostic findings that should be taken into account when interpreting QuantiFERON (TM)-TB Gold results. See general guidance on the diagnosis and treatment of TB disease and LTBI (https://www.cdc.gov/tb/publications/guidlines/default.htmPerformed By: #### 28905 #### [facility] [address] [facility] [place] [address], USATB1 AG0.05 IU/mLNormalThe [facility] HospitalComment on above:Performed By: #### 06607 #### [facility] [address] [place] [address], USATB1 AG MINUS NIL0.02 IU/mLNormalThe [facility] HospitalComment on above:Performed By: #### 98492 #### [facility] [address] [place] [address], USATB2 AG0.05 IU/mLNormalThe [facility] HospitalComment on above:Performed By: #### 54597 #### [facility] [address] [place] [address], USATB2 AG MINUS NIL0.02 IU/mLNormalThe [facility] HospitalComment on above:Performed By: #### 58158 #### [facility] [address] [place] [address], USAUA,MICROSCOPIC REQUIREDon 75-86-8150Utsgdhqmhb (U)SL CLOUDY AbnormalCLEARThe [facility] HospitalComment on above:Performed By: #### 44035, 49366, 16003, 21412, 12638 #### [facility] [address] [place] [address], USABilirubin Ql (U)NegativeNormalNEGATIVEThe [facility] HospitalComment on above:Performed By: #### 36604, 86072, 97266, 15598, 04076 #### [facility] [address] [place] [address], USAColor (U)STRAWAbnormalYELLOWThe [facility] HospitalComment on above:Performed By: #### 24001, 63648, 82702, 63840, 49810 #### [facility] [address] [place] [address], USAEPISMANYAbnormalFEW,OCC,NONE SEENThe University of [place] Medical CenterComment on above:Performed By: #### 09982, 71618, 77245, 57009, 40172 #### [facility] [address] [place] [address], USAGlucose Ql (U)50 mg/dLAbnormalNEGATIVEThe [facility] HospitalComment on above:Performed By: #### 61486, 72614, 75049, 05009, 17368 #### [facility] [address] [place] [address], USAHemoglobin Ql (U)NegativeNormalNEGATIVEThe [facility] HospitalComment on above:Performed By: #### 33495, 38855, 42646, 60256, 73900 #### [facility] [address] [place] [address], USAKETONENegativeNormalNEGATIVEThe [facility] HospitalComment on above:Performed By: #### 45013, 59622, 55819, 46974, 04089 #### [facility] [address] [place] [address], USALEUK ESTERMODERATEAbnormalNEGATIVEThe [facility] HospitalComment on above:Performed By: #### 87725, 79565, 84927, 54443, 79594 #### [facility] [address] [place] [address], USANitrite Ql (U)NegativeNormalNEGATIVEThe [facility] HospitalComment on above:Performed By: #### 21548, 85112, 79318, 08241, 39966 #### [facility] [address] [place] [address], USApH (U)7.0 [pH]Normal5.0-8.0The [facility] HospitalComment on above:Performed By: #### 90181, 05701, 99433, 08541, 78496 #### [facility] [address] [place] [address], USAProtein Ql (U)30 mg/dLAbnormalNEGATIVEThe [facility] HospitalComment on above:Performed By: #### 31901, 14289, 01673, 18346, 09437 #### [facility] [address] [place] [address], USARBCNONE SEENNormalNONE SEENThe [facility] HospitalComment on above:Performed By: #### 63750, 10689, 12899, 20371, 45476 #### [facility] [address] [place] [address], USASPEC GRAV1.598Ikp5.015-1.020The [facility] HospitalComment on above:Performed By: #### 42881, 30098, 88094, 94113, 13628 #### [facility] [address] [place] [address], USAWBC RG50-07UuytyopnFTBO SEENThe [facility] HospitalComment on above:Performed By: #### 88745, 78811, 58824, 44683, 94842 #### [facility] [address] [place] [address], USAVARICELLA ZOSTER IGGon 55-15-4015TEVAKSEFW IGG3.29NormalThe [facility] HospitalComment on above:Result Comment: NORMAL RANGES: < OR = 0.9O NEGATIVE ; NO DETECTABLE IgG ANTIBODY TO VARICELLA-ZOSTER VIRUS 0.91 - 1.09 EQUIVOCAL; REPEAT TESTING SUGGESTED > OR = 1.10 POSITIVE ; INDICATES PRESENCE OF DETECTABLE IgG ANTIBODY TO VARICELLA-ZOSTER VIRUSPerformed By: #### 09321, 61787, 15849, 34921, 15617 #### [facility] [address] [facility] [address], USAPTH INTACTon 81-97-8589BOJ, Mzvfba178 pg/mLCritically high 15-65[facility], AvonComment on above:Performed By: #### MG, URIC, RENAL #### [facility] [address] [place] [address] Dr. Hari Steele [id number] [Mass/Vol]256.0 ng/mLCritically high6.2-137.0The [facility] HospitalComment on above:Performed By: #### MG, URIC, RENAL #### [facility] [address] [place] [address] Dr. Hari PalmerHEMOGRAM AND PLATELon 32-56-5881Argvmgfkds (Bld) [Volume fraction]33.7 %Critically low36.0-48.0The [facility] HospitalComment on above: Performed By: #### MG, URIC, RENAL #### [facility] [address] [place] [address] Dr. Hari PalmerHemoglobin (Bld) [Mass/Vol]10.9 g/dLCritically low12.0-16.0The [facility] Hospitalment on above:Performed By: #### MG, URIC, RENAL #### [facility] [address] [place] [address] Dr. Hari Sargent (RBC) [Entitic mass]31.4 nzWzbxtj84.7-34.0The [facility] HospitalComment on above:Performed By: #### MG, URIC, RENAL #### [facility] [address] [place] [address] Dr. Hari Sargent (RBC) [Mass/Vol]32.3 g/iIMragqs54.9-35.2The [facility] Hospitalment on above:Performed By: #### MG, URIC, RENAL #### [facility] [address] [place] [address] Dr. Hari Sargent (RBC) [Entitic vol]97.1 vTLpoeiw47.0-99.0[facility] on above:Performed By: #### MG, URIC, RENAL #### [facility] [address] [place] [address] Dr. Hari PalmerPLT314 103/msFljlta059-038Xcd [facility] HospitalComment on above: Performed By: #### MG, URIC, RENAL #### [facility] [address] [address] [address] Hari WayC3.47 106/ulCritically low4.20-5.40The [facility] HospitalComment on above:Performed By: #### MG, URIC, RENAL #### [facility] [address] [place] [address] Dr. Hari PalmerWBC9.4 103/ulNormal4.0-11.0The [facility] HospitalComment on above: Performed By: #### MG, URIC, RENAL #### [facility] [address] [place] [address] Dr. Hari Riley AND TIBCon 12-03-2021% WHHSNDBFXM45.0 %NormalThe [facility]edo HospitalComment on above:Performed By: #### MG, URIC, RENAL #### [facility] [address] [place] [address] Dr. Hari Riley [Mass/Vol]52.0 ug/oPKqouwf26.0-170.0[facility] Comment on above:Performed By: #### MG, URIC, RENAL #### [facility] [address] [place] [address] Dr. Hari PalmerTIBC DCSJBD137.0 ug/oXVvrsld954.0-497.0[facility] Comment on above:Performed By: #### MG, URIC, RENAL #### [facility] [address] [place] [address] Dr. Hari PalmerMAGNESIUMon 33-12-4619Jlbvjpech [Mass/Vol]2.1 mg/dLNormal1.6-2.3 The [facility] HospitalComment on above:Performed By: #### MG, URIC, RENAL #### [facility] [address] [place] [address] Dr. Hari MorenoAL FUNCTION PANELon 67-03-3225Kvrrxci [Mass/Vol]3.6 g/dLNormal 3.5-5.0The [facility] HospitalComment on above:Performed By: #### MG, URIC, RENAL #### [facility] [address] [place] [address] Dr. Hari PalmerCalcium [Mass/Vol]8.4 mg/dLNormal8.4-10.2[facility] Comment on above:Performed By: #### MG, URIC, RENAL #### [facility] [address] [address] [address] Hari PalmerChloride [Moles/Vol]101 mmol/ZEjojha56-956Emp [facility] Comment on above:Performed By: #### MG, URIC, RENAL #### [facility] [address] [address] [address] Hari PalmerCO2 [Moles/Vol]24.3 mmol/RGoqrrw20.0-30.0The [facility] Comment on above:Performed By: #### MG, URIC, RENAL #### [facility] [address] [place] [address] Dr. Hari PalmerCreatinine [Mass/Vol]3.32 mg/dLCritically high0.52-1.04The [facility] HospitalComment on above:Performed By: #### MG, URIC, RENAL #### [facility] [address] [place] [address] Dr. Noriega ChangEGFR-AF SXQAAQMW17 mL/min/1.90h9Yjwyftoncw low>=60The [facility] HospitalComment on above:Performed By: #### MG, URIC, RENAL #### [facility] [address] [place] [address] Dr. Noriega ChangEGFR-NON AF NBVZAXVQ98 mL/min/1.75x8Rbeuolgacd low>=60The [facility] HospitalComment on above:Performed By: #### MG, URIC, RENAL #### [facility] [address] [place] [address] Dr. Hari PalmerGlucose [Mass/Vol]119 mg/dLCritically wzgf28-572Idv [facility] HospitalComment on above:Performed By: #### MG, URIC, RENAL #### [facility] [address] [place] [address] Dr. Hari PalmerPhosphate [Mass/Vol]4.7 mg/dLCritically high2.5-4.5The [facility] HospitalComment on above:Performed By: #### MG, URIC, RENAL #### [facility] [address] [address] [address] Hari PalmerPotassium [Moles/Vol]4.0 mmol/LNormal3.4-5.0The [facility] Comment on above:Performed By: #### MG, URIC, RENAL #### [facility] [address] [address] [address] Hari PalmerSodium [Moles/Vol]135 mmol/LCritically iim906-943Nod [facility] HospitalComment on above:Performed By: #### MG, URIC, RENAL #### [facility] [address] [address] [address] Hari PalmerUrea nitrogen [Mass/Vol]42.0 mg/dLCritically high7.0-17.0The [facility] HospitalComment on above:Performed By: #### MG, URIC, RENAL #### [facility] [address] [place] [address] Dr. Hari Shafer RANDOM W/MICROSCOPICon 81-61-6498WBSEPLIBWRXTZUsbrtjsvHWKE SEENSelect Medical [facility], AvonComment on above:Performed By: #### UAMIC #### [facility] [address] [place] [address] Dr. Hari Reyesirubin Ql (U)NegativeNormalNEGATIVESelect Medical [facility], [place] Comment on above:Performed By: #### UAMIC #### [facility] [address] [place] [address] Dr. Hari PalmerCASTNONE SEENNormalNONE SEENSelect Medical [facility], AvonComment on above:Performed By: #### UAMIC #### [facility] [address] [place] [address] Dr. Hari Boydarity (U)CLEARNormalCLEARSelect Medical [facility], AvonComment on above: Performed By: #### UAMIC #### [facility] [address] [place] [address] Dr. Hari Sims (U)LT. YELLOWNormalYELLOWThe [facility] HospitalComment on above:Performed By: #### UAMIC #### [facility] [address] [address] [address] Hari PalmerCrystals LM Nom (Urine sed)NONE SEENNormalNONE SEENSelect Medical [facility], AvonComment on above:Performed By: #### UAMIC #### [facility] [address] [address] [address] Noriega ChangEpithelial cells LM Ql (Urine sed)FEWAbnormalNONE SEEN /RAREThe [facility] HospitalComment on above:Performed By: #### UAMIC #### [facility] [address] [address] [address] Hari PalmerGlucose Ql (U)100 mg/dlAbvaldezNEGMemorial Health System on above:Performed By: #### UAMIC #### [facility] [address] [place] [address] Dr. Hari PalmerHemoglobin Ql (U)TRACE-INTACTAbnormalNEGMercy Health St. Charles HospitalComment on above:Performed By: #### UAMIC #### [facility] [address] [place] [address] Dr. Hari PalmerKetones Ql (U)NegativeNormalNEGATIVESelect Medical [facility], AvonComment on above:Performed By: #### UAMIC #### [facility] [address] [place] [address] Dr. Hari BanuelosOCYTESSMALLAbnormalNEGMercy Health St. Charles HospitalComment on above:Performed By: #### UAMIC #### [facility] [address] [place] [address] Dr. Hari PalmerMUCOUSNONE SEENNormalNONE SEENSelect Medical [facility], AvonComment on above:Performed By: #### UAMIC #### [facility] [address] [place] [address] Dr. Hari Dalytrite Ql (U)NegativeNormalNEGATIVESelect Medical [facility], AvonComment on above:Performed By: #### UAMIC #### [facility] [address] [address] [address] Hari PalmerpH (U)6.0 [pH]Normal5-9The [facility] HospitalComment on above: Performed By: #### UAMIC #### [facility] [address] [place] [address] Dr. Hari PalmerQkfabXNY0-5Kerxzt4-6Aaa [facility] HospitalComment on above:Performed By: #### UAMIC #### [facility] [address] [place] [address] Dr. Hari PalmerSPEC GRAVITY1.386Orwwzw0.005-<=1.025The [facility] HospitalComment on above:Performed By: #### UAMIC #### [facility] [address] [place] [address] Dr. Hari Shafer PROTEINNegativeNormalNEGATIVE/ TRACEThe [facility] Comment on above:Performed By: #### UAMIC #### [facility] [address] [place] [address] Dr. Hari Bartholomewbilinogen Qn (U)0.2 {Janice'U}/dLNormal0.2 - 1.0The [facility] HospitalComment on above:Performed By: #### UAMIC #### [facility] [address] [place] [address] Dr. Hari PalmerWBC5-10AbnormalNONE SEENThe [facility] HospitalComtrinity health [facility] on above: Performed By: #### UAMIC #### [facility] [address] [place] [address] Dr. Hari Britt ACID SERUMon 34-97-9963Cuoox [Mass/Vol]4.6 mg/dLNormal 2.5-6.2The [facility] HospitalComment on above:Performed By: #### MG, URIC, RENAL #### [facility] [address] [place] [address] Dr. Hari Hadley T PROTEIN CREAT RATIOon 85-32-1907Ikkshih (U) [Mass/Vol] 31.7 mg/dLCritically high<=12.0The [facility] HospitalComment on above:Performed By: #### MG, URIC, RENAL #### [facility] [address] [place] [address] Dr. Hari Prince PROT CREAT RAT0.54NoMetroHealth Cleveland Heights Medical CenterComment on above: Performed By: #### MG, URIC, RENAL #### [facility] [address] [place] [address] Dr. Hari Hadley CREAT59.03 mg/iTYdtsvv51.00-300.00[facility] [place] Comment on above:Performed By: #### MG, URIC, RENAL #### [facility] [address] [place] [address] Dr. Hari PalmerVITAMIN D 25 OHon 71-49-8854TQA D 25-OH38.1 ng/mLNormalThe [facility] HospitalComment on above:Performed By: #### MG, URIC, RENAL #### [facility] [address] [place] [address] Dr. Hari Peng RANGESSEE BELOWWooster Community HospitalComment on above: Result Comment: <20 ng/mL Vit D deficient 20 - <30 ng/mL Vit D insufficient 30 - 100 ng/mL Vit D sufficient >100 ng/mL Potential ToxicityPerformed By: #### MG, URIC, RENAL #### [facility] [address] [place] [address] Dr. Hari Cisse INTACTon 67-65-0370YBK, Fismhb234 pg/mLCritically nfgv04-12 The [facility] HospitalComment on above:Performed By: #### PTHINT #### [facility] [address] [place] [address] Dr. Hari Johnson AUTO DIFFon 20-13-3909BBYM #0.1 103/ulNormal0.0-0.1[facility], AvonComment on above:Performed By: #### MG, URIC, RENAL #### [facility] [address] [place] [address] Dr. Hari PalmerBasophils/100 WBC (Bld)0.6 %Normal0.2-2.0[facility] [place] Comment on above:Performed By: #### MG, URIC, RENAL #### [facility] [address] [place] [address] Dr. Hari Hills #0.3 103/ulNormal0.0-0.7The [facility] HospitalComment on above: Performed By: #### MG, URIC, RENAL #### [facility] [address] [place] [address] Dr. Hari Brandtosinophils/100 WBC (Bld)3.5 %Normal0.9-7.0The [facility] Comment on above:Performed By: #### MG, URIC, RENAL #### [facility] [address] [place] [address] Dr. Hari Brandtrythrocyte distribution width (RBC) [Ratio]13.8 %Amlxeo54.0-15.0 The [facility] HospitalComment on above:Performed By: #### MG, URIC, RENAL #### [facility] [address] [place] [address] Dr. Hari PalmerHematocrit (Bld) [Volume fraction]32.8 %Critically low36.0-48.0 The [facility] HospitalComment on above:Performed By: #### MG, URIC, RENAL #### [facility] [address] [place] [address] Dr. Hari PalmerHemoglobin (Bld) [Mass/Vol]10.6 g/dLCritically low12.0-16.0The [facility] HospitalComment on above:Performed By: #### MG, URIC, RENAL #### [facility] [address] [place] [address] Dr. Hari Grissom #0.14 10e3/ulCritically high0.00-0.03The [facility] Comment on above:Performed By: #### MG, URIC, RENAL #### [facility] [address] [place] [address] Dr. Hari Grissom %1.5 %Critically high0.0-0.5The [facility] HospitalComment on above:Performed By: #### MG, URIC, RENAL #### [facility] [address] [place] [address] Dr. Hari Haywood #1.8 103/ulNormal1.2-3.8The [facility] HospitalComment on above:Performed By: #### MG, URIC, RENAL #### [facility] [address] [place] [address] Dr. Hari Weavermphocytes/100 WBC (Bld)19.3 %Critically low20.5-60.0The [facility] HospitalComment on above:Performed By: #### MG, URIC, RENAL #### [facility] [address] [place] [address] Dr. Hari CarreroUAL DIFF REQNONormalThe [facility] HospitalComment on above: Performed By: #### MG, URIC, RENAL #### [facility] [address] [place] [address] Dr. Hari Sargent (RBC) [Entitic mass]31.4 ziTobsxm26.7-34.0The [facility] HospitalComment on above:Performed By: #### MG, URIC, RENAL #### [facility] [address] [place] [address] Dr. Hari Sargent (RBC) [Mass/Vol]32.3 g/fLMkotcu66.9-35.2The [facility] HospitalComment on above:Performed By: #### MG, URIC, RENAL #### [facility] [address] [place] [address] Dr. Hari Sargent (RBC) [Entitic vol]97.0 aLNnerjg47.0-99.0The [facility] HospitalComment on above:Performed By: #### MG, URIC, RENAL #### [facility] [address] [place] [address] Dr. Hari Horan #0.4 103/ulNormal0.3-0.8The [facility] HospitalComment on above:Performed By: #### MG, URIC, RENAL #### [facility] [address] [place] [address] Dr. Hari Barkleyocytes/100 WBC (Bld)4.2 %Normal1.7-12.0The [facility] Comment on above:Performed By: #### MG, URIC, RENAL #### [facility] [address] [place] [address] Dr. Hari Thompson #6.5 103/ulNormal1.4-6.5The [facility] HospitalComment on above:Performed By: #### MG, URIC, RENAL #### [facility] [address] [place] [address] Dr. Hari Carrilloutrophils/100 WBC (Bld)70.9 %Pxvfxm75.0-75.0The [facility] HospitalComment on above:Performed By: #### MG, URIC, RENAL #### [facility] [address] [place] [address] Dr. Hari Villanuevalet mean volume (Bld) [Entitic vol]9.0 fLCritically low 9.5-13.5The [facility] HospitalComment on above:Performed By: #### MG, URIC, RENAL #### [facility] [address] [place] [address] Dr. Hari PalmerPLT289 103/qyMyvxvq773-322Nfb [facility] Hospitalment on above: Performed By: #### MG, URIC, RENAL #### [facility] [address] [place] [address] Dr. Hari PalmerRBC3.38 106/ulCritically low4.20-5.40[facility] on above:Performed By: #### MG, URIC, RENAL #### [facility] [address] [place] [address] Dr. Hari RicardoBC9.1 103/ulNormal4.0-11.0[facility] on above: Performed By: #### MG, URIC, RENAL #### [facility] [address] [place] [address] Dr. Hari PalmerFERRITINon 56-52-7542Bkzvstuo [Mass/Vol]204.0 ng/mLCritically high6.2-137.0[facility] on above:Performed By: #### MG, URIC, RENAL #### [facility] [address] [place] [address] Dr. Hari Riley AND TIBCon 09-01-2021% TCSHURTNNK01.4 %NormalThe [facility] HospitalComment on above:Performed By: #### MG, URIC, RENAL #### [facility] [address] [place] [address] Dr. Hari Riley [Mass/Vol]80.0 ug/gRDrpuxw93.0-170.0[facility] Comment on above:Performed By: #### MG, URIC, RENAL #### [facility] [address] [place] [address] Dr. Hari PalmerTIBC QDJEXR524.0 ug/nPBeryrv773.0-497.0[facility] [place] Comment on above:Performed By: #### MG, URIC, RENAL #### [facility] [address] [place] [address] Dr. Hari PalmerMAGNESIUMon 90-14-5839Wzrqfstsw [Mass/Vol]2.2 mg/dLNormal1.6-2.3 The [facility] HospitalComment on above:Performed By: #### UAMIC #### [facility] [address] [place] [address] Dr. Hari MorenoAL FUNCTION PANELon 50-37-4974Mxltzik [Mass/Vol]3.5 g/dLNormal 3.5-5.0The [facility] HospitalComment on above:Performed By: #### MG, URIC, RENAL #### [facility] [address] [place] [address] Dr. Hari PalmerCalcium [Mass/Vol]8.7 mg/dLNormal8.4-10.2[facility] Comment on above:Performed By: #### MG, URIC, RENAL #### [facility] [address] [place] [address] Dr. Hari PalmerChloride [Moles/Vol]105 mmol/QGfoval61-933C[facility] Comment on above:Performed By: #### MG, URIC, RENAL #### [facility] [address] [place] [address] Dr. Hari PalmerCO2 [Moles/Vol]21.1 mmol/LCritically low22.0-30.0The [facility] HospitalComment on above:Performed By: #### MG, URIC, RENAL #### [facility] [address] [place] [address] Dr. Hari PalmerCreatinine [Mass/Vol]3.63 mg/dLCritically high0.52-1.04The [facility] HospitalComment on above:Performed By: #### MG, URIC, RENAL #### [facility] [address] [place] [address] Dr. Noriega ChangEGFR-AF JCJDMKOB53 mL/min/1.98s4Zygnpaiaih low>=60The [facility] HospitalComment on above:Performed By: #### MG, URIC, RENAL #### [facility] [address] [place] [address] Dr. Hari BrandtGFR-NON AF RBPRVYXK24 mL/min/1.51m0Xorvwnzjdb low>=60The [facility] HospitalComment on above:Performed By: #### MG, URIC, RENAL #### [facility] [address] [place] [address] Dr. Hari PalmerGlucose [Mass/Vol]115 mg/dLCritically lliv40-692Wbr [facility] HospitalComment on above:Performed By: #### MG, URIC, RENAL #### [facility] [address] [place] [address] Dr. Hari PalmerPhosphate [Mass/Vol]4.6 mg/dLCritically high2.5-4.5The [facility] HospitalComment on above:Performed By: #### MG, URIC, RENAL #### [facility] [address] [place] [address] Dr. Hari PalmerPotassium [Moles/Vol]4.2 mmol/LNormal3.4-5.0[facility] Comment on above:Performed By: #### MG, URIC, RENAL #### [facility] [address] [place] [address] Dr. Hari PalmerSodium [Moles/Vol]138 mmol/AFgfzya407-946Hwd [facility] Comment on above:Performed By: #### MG, URIC, RENAL #### [facility] [address] [address] [address] Hari Palma nitrogen [Mass/Vol]50.0 mg/dLCritically high7.0-17.0[facility] on above:Performed By: #### MG, URIC, RENAL #### [facility] [address] [address] [address] Hari Shafer RANDOM W/MICROSCOPICon 40-18-8116DERPKMMFIREVTJgaomsrlEOJQ SEENThe [facility] HospitalComment on above:Performed By: #### UAMIC #### [facility] [address] [address] [address] Hari Reyesirubin Ql (U)NegativeNormalNEGATIVEThe [facility] Comment on above:Performed By: #### UAMIC #### [facility] [address] [place] [address] Dr. Hari PalmerCASTBRITTE SEENNormalNONE SEENThe [facility] on above:Performed By: #### UAMIC #### [facility] [address] [address] [address] Hari Boydarity (U)CLEARNormalCLEARThe [facility] HospitalComment on above: Performed By: #### UAMIC #### [facility] [address] [address] [address] Hari Sims (U)LT. YELLOWNormalYELLOWThe [facility] HospitalComment on above:Performed By: #### UAMIC #### [facility] [address] [address] [address] Hari PalmerCrystals LM Nom (Urine sed)NONE SEENNormalNONE SEENSelect Medical [facility], AvonComment on above:Performed By: #### UAMIC #### [facility] [address] [address] [address] Noriega ChangEpithelial cells LM Ql (Urine sed)MODERATEAbnormalNONE SEEN /RARE The [facility] HospitalComment on above:Performed By: #### UAMIC #### [facility] [address] [address] [address] Hari PalmerGlucose Ql (U)NegativeNormalNEGATIVEKindred Hospital Dayton HospitalComment on above:Performed By: #### UAMIC #### [facility] [address] [place] [address] Dr. Hari PalmerHemoglobin Ql (U)TRACE-INTACTAbnormalNEGATIVEKindred Hospital Dayton HospitalComment on above:Performed By: #### UAMIC #### [facility] [address] [place] [address] Dr. Hari PalmerKetones Ql (U)NegativeNormalNEGATIVEKindred Hospital Dayton HospitalComment on above:Performed By: #### UAMIC #### [facility] [address] [place] [address] Dr. Hari PalmerLEUKOCYTESNegativeNormalNEGATIVESelect Medical [facility], AvonComment on above:Performed By: #### UAMIC #### [facility] [address] [place] [address] Dr. Hari PalmerMUCOUSNONE SEENNormalNONE SEENSelect Medical [facility], AvonComment on above:Performed By: #### UAMIC #### [facility] [address] [place] [address] Dr. Hari PalmerNitrite Ql (U)NegativeNormalNEGATIVESelect Medical [facility], AvonComment on above:Performed By: #### UAMIC #### [facility] [address] [place] [address] Dr. Hari PalmerpH (U)6.0 [pH]Normal5-9The [facility] HospitalComment on above: Performed By: #### UAMIC #### [facility] [address] [place] [address] Dr. Hari PalmerSmjbcVYY3-2Awbgnfcb1-6Bkl [facility] HospitalComment on above:Performed By: #### UAMIC #### [facility] [address] [place] [address] Dr. Hari PalmerSPEC GRAVITY1.342Ozlqon8.005-<=1.025The [facility] HospitalComment on above:Performed By: #### UAMIC #### [facility] [address] [place] [address] Dr. Hari Shafer PROTEINNegativeNormalNEGATIVE/ TRACEThe [facility] Comment on above:Performed By: #### UAMIC #### [facility] [address] [place] [address] Dr. Hari Claytongen Qn (U)0.2 {Janice'U}/dLNormal0.2 - 1.0The [facility] HospitalComment on above:Performed By: #### UAMIC #### [facility] [address] [place] [address] Dr. Hari PalmerWBC2-5AbnormalNONE SEENThe [facility] HospitalComment on above: Performed By: #### UAMIC #### [facility] [address] [place] [address] Dr. Hari Britt ACID SERUMon 25-75-9408Qampp [Mass/Vol]4.9 mg/dLNormal 2.5-6.2The [facility] HospitalComment on above:Performed By: #### UAMIC #### [facility] [address] [place] [address] Dr. Hari Hadley T PROTEIN CREAT RATIOon 30-32-8275Ucrlmtd (U) [Mass/Vol] 22.2 mg/dLCritically high<=12.0The [facility] HospitalComment on above:Performed By: #### MG, URIC, RENAL #### [facility] [address] [place] [address] Dr. Hari Prince PROT CREAT RAT0.47NormalThe [facility] HospitalComment on above: Performed By: #### MG, URIC, RENAL #### [facility] [address] [place] [address] Dr. Hari Hadley CREAT46.89 mg/aVYesnuv83.00-300.00[facility] Comment on above:Performed By: #### MG, URIC, RENAL #### [facility] [address] [place] [address] Dr. Hari PalmerVITAMIN D 25 OHon 89-98-9658RXI D 25-OH40.5 ng/mLNormalThe Lala HospitalComment on above:Performed By: #### MG, URIC, RENAL #### [facility] [address] [place], [place] [address] Dr. Hari SAUCEDO [facility] CenterComtr[facility] on above: Result Comment: <20 ng/mL Vit D deficient 20 - <30 ng/mL Vit D insufficient 30 - 100 ng/mL Vit D sufficient >100 ng/mL Potential ToxicityPerformed By: #### MG, URIC, RENAL #### [facility] [address] [place], [place] [address] Dr. Hari Bean [id number] Visit (NEPHMN) MANDEEP PURI ([id number]) 1975 F Date Time Provider Department 03/30/21 9:20 AM PERRI BARRETT NEPHMN During your visit today, we recorded the following information about you: Temperature Pulse Blood pressure Weight 98.2 degrees 75/minute 122/77 93 kg Height 1.549 m Perri Barrett MD 03/30/2021 10:25 AM Signed Mrs. Puri is a 45 year old from [place], [place] here with her hyusbandEvan seen at [...] PTH, VITD25, CHOL, HBA1C, HBSAGR, HEPSABQ, HEPCABEIA 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 (more content not included)...NormalMarietta Memorial HospitalUrinalysison 54-78-4318Uziexnryt, UrineNegativeNormalNegativeMarietta Memorial Hospital Comment on above:Performed By: #### UA #### [facility] [address] [address] Cbxlbld (U)ClearNormalClearMarietta Memorial HospitalComment on above:Performed By: #### UA #### [place] [address] [place] [phone] (U)ColorlessCritically abnormalYellowMarietta Memorial HospitalComment on above:Performed By: #### UA #### [place] [phone] COMMENTNormalCVeterans Health AdministrationComment on above: Result Comment: Microscopic not warrantedPerformed By: #### UA #### [place] [address] [place] [phone] Ql (U)TraceCritically abnormalNegativeMarietta Memorial HospitalComtrinity health [facility] on above:Performed By: #### UA #### [place] [place] [phone]/Blood,UrNegativeNormalNegativeMarietta Memorial Hospital Comment on above:Performed By: #### UA #### [facility] [address] [phone] Ql (U)NegativeNormalNegKeenan Private Hospital Comment on above:Performed By: #### UA #### [facility] [address] [phone]vpsvyKcnklxdcw Clinic ClevelandComment on above:Performed By: #### UA #### [facility] [employer] [address] [address] Xfhpkxr Ql (U)NegativeNormalNegativeMarietta Memorial Hospital Comment on above:Performed By: #### UA #### [place] [address] [place] [phone] pH (U)6.5 [pH]Normal5.0-8.0[facility] on above:Performed By: #### UA #### [place] [address] Mqsqgpf, UrineNegativeNormalNegativeMarietta Memorial Hospital Comment on above:Performed By: #### UA #### [place] [address] Vpjsnqqo [place], Ur1.056Xtbmmf7.005-1.030[facility] Comment on above:Performed By: #### UA #### [place] [address] Agjlu Codi CommentSEE COMMENTNormalCCincinnati Children's Hospital [facility] on above:Result Comment: N/APerformed By: #### UA #### [place] [id number] [phone] (U) [Mass/Vol]NegativeNormalNegativeSt. John of God Hospital on above:Performed By: #### UA #### [place] [id number] [phone] Summary.on 88-66-8265Yvnyld Summary.CODING DATE: 04/21/[address] [facility] STATUS: Home (Routine DC) PAYOR: Medical [place] ADMIT DX: REASON FOR VISIT DX: Z20.828 [...] Teresa Pierce CphT Date Saved: 04/21/2020 05:17 pmNRegency Hospital CompanyPhysician Order on 97-26-3921Tdszzebab [id number]#1.00CD:127 [facility] HospitalALTon 79-05-6942SZE [Catalytic activity/Vol]14 U/LNormal7 - 45[facility] Medical CenterComment on above:Result Comment: Patients treated with Sulfasalazine may generate falsely decreased results for ALT.Performed By: #### ALT #### [facility] [address] [place], [place] [address]WYQov 20-27-1689VOE [Catalytic activity/Vol]16 U/LNormal9 - 39[facility] Medical CenterComment on above:Performed By: #### AST #### [facility] [address] [place], [place] [address]JNIJUHYYYZni 86-84-5029Pvhwucnhmq [Mass/Vol]2.83 mg/dLHigh 0.50 - 1.05UH [facility] County HospitalComment on above:Performed By: #### CREAT #### [facility] [address] [place], [place] [address]Zbnzpeljob [Mass/Vol]18 mL/min/1.35b4Lmbrsjsh>60[facility] County HospitalComment on above:Performed By: #### CREAT #### [facility] [address] [place], [place] [address]Hlkhecrsnq [Mass/Vol]22 mL/min/1.82c8Fhorxeyl>60[facility] County HospitalComment on above:Result Comment: CALCULATIONS OF ESTIMATED GFR ARE PERFORMED USING THE MDRD STUDY EQUATION FOR THE IDMS-TRACEABLE CREATININE METHODS. CLIN CHEM 2007;53:766-72Performed By: #### CREAT #### [facility] [address] [place], [place] [address]EEXL ACIDon 16-07-3055Datek [Mass/Vol]5.2 mg/dLNormal2.3 - 6.7[facility] Medical CenterComment on above:Result Comment: Venipuncture immediately after or during the administration of Metamizole may lead to falsely low results. Testing should be performed immediately prior to Metamizole dosing.Performed By: #### URIC #### [facility] [address] [place], [place] [address]FCEZ ACIDon [id number] [Mass/Vol]8.2 mg/dLHigh2.3 - 6.7 [facility] Medical CenterComment on above:Result Comment: Venipuncture immediately after or during the administration of Metamizole may lead to falsely low results. Testing should be performed immediately prior to Metamizole dosing.Performed By: #### URIC #### [facility] [address] [place], [place] [address]Rufm,Urineon [id number],UrineSpecimen Description .CLEAN CATCH URINE Special Requests NOT REPORTED Culture ESCHERICHIA COLI >[id number] CFU/ML Report Status FINAL 08/04/2019 SUSCEPTIBILITY Organism [...] SUSCEPTIBLE Trimethoprim/Sulfa <=20 SUSCEPTIBLE Piperacillin/Tazobactam <=4 SUSCEPTIBLENormalMercy Middlesex HospitalComment on above:Performed By: #### DIME, LIP, CMPX, TROPI, BNP, CDP, PT #### [facility] [address] [place] [address] Checker In: Sami Dominguez MDBrain Natri. Peptideon [id number] peptide B (Bld) [Mass/Vol]152 pg/mLNormal<300[facility] on above:Result Comment: Pro-BNP results cannot be compared to BNP results. Performed By: #### DIME, LIP, CMPX, TROPI, BNP, CDP, PT #### [facility] [address] [place] [address] Checker In: Sami Dominguez MDNatriuretic peptide B (Bld) [Mass/Vol]Pro-BNP Reference Range:[facility] on above:Result Comment: Rule Out: <300 Parra Zone: Age <50 300-450 Age 50-75 300-900 Age >75 300-1800 Usually represents mild to moderate HF but other cardiopulmonary causes cannot be ruled out. Rule In: Age <50 >450 Age 50-75 >900 Age >75 >1800Performed By: #### DIME, LIP, CMPX, TROPI, BNP, CDP, PT #### [facility] [address] [place] [address] Checker In: Sami Dominguez MDBrain Natriuretic Peptideon [id number] peptide B (Bld) [Mass/Vol]152 pg/mL<[address] [place] [address], KYComtrinity health livingston hospital on above: Pro-BNP results cannot be compared to BNP results.Natriuretic peptide B (Bld) [Mass/Vol]Pro-BNP Reference Range:[facility], ILComtrinity health livingston hospital on above: Rule Out: <300 Parra Zone: Age <50 300-450 Age 50-75 300-900 Age >75 300-1800 Usually represents mild to moderate HF but other cardiopulmonary causes cannot be ruled out. Rule In: Age <50 >450 Age 50-75 >900 Age >75 >1800 CBC Auto Differentialon 03-13-1242Pssnzofrj (Bld) [#/Vol]0.00 10*3/[place], KYBasophils/100 WBC (Bld)0 %0 - 2 %[facility], KYDifferential TypeNOT REPORTEDTriHealth Bethes[facility], KYEosinophils (Bld) [#/Vol]0.08 10*3/[place], KYEosinophils/100 WBC (Bld)1 %1 - 4 %[place], KYErythrocyte distribution width (RBC) [Ratio]13.2 %11.8 - 14.4 %[place], [place] Hematocrit (Bld) [Volume fraction]33.7 %Low36.3 - 47.1 %[place], [place] Hemoglobin (Bld) [Mass/Vol]10.7 g/dLLow11.9 - 15.1 g/dLBurchard, [place] Immature granulocytes (Bld) [#/Vol]0 %0[place], KYImmature granulocytes (Bld) [#/Vol]0.00 10*3/uLBurchard, KYInterpretation and review of laboratory resultsAbnormalB[place], KYLymphocytes (Bld) [#/Vol]0.90 10*3/uLLowB[place], KYLymphocytes/100 WBC (Bld)12 %Low24 - 43 %[place], KYMCH (RBC) [Entitic mass]30.2 pg25.2 - 33.5 pgBurchard, [place] MCHC (RBC) [Mass/Vol]31.8 g/dL28.4 - 34.8 g/dLBurchard, KYMCV (RBC) [Entitic vol]95.2 fL82.6 - 102.9 fLBurchard, KYMonocytes (Bld) [#/Vol] 0.00 10*3/uLLowTriHealth Bethesda North Hospital, ILMonocytes/100 WBC (Bld)0 %Low3 - 12 %[place], KYMorphology Geovany (Bld) [Interp]NormalBurchard, KYPlatelet mean volume (Bld) [Entitic vol]8.6 fL8.1 - 13.5 fLBurchard, KYPlatelets (Bld) [#/Vol]NOT REPORTEDB[place], KYPlatelets (Bld) [#/Vol]335 10*3/uL [place], KYRBC (Bld) [#/Vol]3.54 10*6/uLLow3.95 - 5.11 m/Isabella, KYRB morphology finding Nom (Bld)NOT REPORTEDBurchard, [place] Segmented neutrophils/100 WBC (Bld)87 %High36 - 65 %[place], KYSegs Absolute6.52[place], KYWBC (Bld) [#/Vol]7.5 10*3/uLBurchard, [place] WBC (Bld) [#/Vol]0.0 10*3/uL0.0 per 100 WBCTriHealth Bethesda North [facility], [facility] MorphologyNOT REPORTEDBurchard, KYCB with Diffon [id number]. Basophil0.00 k/uL Normal0.0-0.2[facility] HospitalComment on above:Performed By: #### DIME, LIP, CMPX, TROPI, BNP, CDP, PT #### [address] [place] [address] Checker In: Paul Muniz.Imm.Granulocyte0.00 k/uLNormal0.00-0.30[facility] HospitalComment on above:Performed By: #### DIME, LIP, CMPX, TROPI, BNP, CDP, PT #### [address] [place] [address] Checker In: Paul Muniz.Neutrophil (Seg)6.52 k/uLNormal1.50-8.10[facility] HospitalComment on above:Performed By: #### DIME, LIP, CMPX, TROPI, BNP, CDP, PT #### [facility] [address] [place], [place] Checker In: Jalen Munizsophils/100 WBC (Bld)0 %Normal0-2[facility] Phoenix HospitalComment on above:Performed By: #### DIME, LIP, CMPX, TROPI, BNP, CDP, PT #### [address] [place], [place] Checker In: Sami Alberto, MDEosinophils (Bld) [#/Vol]0.08 10*3/uLNormal 0.00-0.44M[facility]field HospitalComtrinity health livingston hospital on above:Performed By: #### DIME, LIP, CMPX, TROPI, BNP, CDP, PT #### [address] [place], [place] [address] Checker In: ANRENDRA Munizosinophils/100 WBC (Bld)1 %Normal1-4[facility] HospitalComment on above:Performed By: #### DIME, LIP, CMPX, TROPI, BNP, CDP, PT #### [address] [place] [address] Checker In: Sami Dominguez MDImmature granulocytes (Bld) [#/Vol]0 %Normal0 [facility] on above:Performed By: #### DIME, LIP, CMPX, TROPI, BNP, CDP, PT #### [address] [place], [place] [address] Checker In: Racheal Munizmphocytes (Bld) [#/Vol]0.90 10*3/uLLow1.10-3.70 [facility] on above:Performed By: #### DIME, LIP, CMPX, TROPI, BNP, CDP, PT #### [address] [place], [place] [address] Checker In: Racheal Munizmphocytes/100 WBC (Bld)12 %Jvf17-39WwcjlMansfield HospitalComment on above:Performed By: #### DIME, LIP, CMPX, TROPI, BNP, CDP, PT #### [address] [place], [place] [address] Checker In: MARGARET Munizonocytes (Bld) [#/Vol]0.00 10*3/uLLow0.10-1.20 [facility] HospitalComment on above:Performed By: #### DIME, LIP, CMPX, TROPI, BNP, CDP, PT #### [address] [place], [place] [address] Checker In: MARGARET Munizonocytes/100 WBC (Bld)0 %Low3-12[facility] HospitalComment on above:Performed By: #### DIME, LIP, CMPX, TROPI, BNP, CDP, PT #### [address] [place], [place] Checker In: MARGARET Munizorphology Geovany (Bld) [Interp]NormalNormalMansfield HospitalComment on above:Performed By: #### DIME, LIP, CMPX, TROPI, BNP, CDP, PT #### [address] [place], [place] [address] Checker In: Sami Dominguez MDNeutrophil (Seg)87 %Hpyn98-94Ewqhk Tiffin HospitalComment on above:Performed By: #### DIME, LIP, CMPX, TROPI, BNP, CDP, PT #### [address] [place], [place] Checker In: Sami Dominguez MDErythrocyte distribution width (RBC) [Ratio]13.2 %Rqerde47.8-14.4[facility] HospitalComment on above:Performed By: #### DIME, LIP, CMPX, TROPI, BNP, CDP, PT #### [address] [place], [place] Checker In: Sami Dominguez MDHematocrit (Bld) [Volume fraction]33.7 %Low 36.3-47.1[facility] Phoenix HospitalComment on above:Performed By: #### DIME, LIP, CMPX, TROPI, BNP, CDP, PT #### [address] [place] [phone] Checker In: Sami Dominguez MDHemoglobin (Bld) [Mass/Vol]10.7 g/dLLow11.9-15.1 [facility] HospitalComment on above:Performed By: #### DIME, LIP, CMPX, TROPI, BNP, CDP, PT #### [address] [place], [place] Checker In: SHIRLEY Muniz (RBC) [Entitic mass]30.2 mvYfjsan48.2-33.5 [facility] HospitalComment on above:Performed By: #### DIME, LIP, CMPX, TROPI, BNP, CDP, PT #### [address] [place], [place] Checker In: SHIRLEY MunizC (RBC) [Mass/Vol]31.8 g/pIFdybnq36.4-34.8 [facility] HospitalComment on above:Performed By: #### DIME, LIP, CMPX, TROPI, BNP, CDP, PT #### [address] [place], [place] Checker In: TOBIAS Muniz (RBC) [Entitic vol]95.2 qRZwtnoj15.6-102.9 [facility] HospitalComment on above:Performed By: #### DIME, LIP, CMPX, TROPI, BNP, CDP, PT #### [address] [place], [place] Checker In: Sami Dominguez MDNRBC Automated0.0 per 100 WBCNormal0.0M[facility] HospitalComment on above:Performed By: #### DIME, LIP, CMPX, TROPI, BNP, CDP, PT #### [address] [place] [address] Checker In: Elisa Muniztelet mean volume (Bld) [Entitic vol]8.6 fL Normal8.1-13.5[facility] HospitalComment on above:Performed By: #### DIME, LIP, CMPX, TROPI, BNP, CDP, PT #### [address] [place], [place] [address] Checker In: Prem Muniz ([facility]) [#/Vol]335 10*3/fHUgjyic031-525 [facility] HospitalComment on above:Performed By: #### DIME, LIP, CMPX, TROPI, BNP, CDP, PT #### [address] [place], [place] [address] Checker In: ARNIE Muniz ([facility]) [#/Vol]3.54 10*6/uLLow3.95-5.11[facility] HospitalComment on above:Performed By: #### DIME, LIP, CMPX, TROPI, BNP, CDP, PT #### [address] [place], [place] [address] Checker In: CAMILA Muniz ([facility]) [#/Vol]7.5 10*3/uLNormal3.5-11.3MHolzer Health System HospitalComment on above:Performed By: #### DIME, LIP, CMPX, TROPI, BNP, CDP, PT #### [address] [place], [place] [address] Checker In: Ruddy Muniz PerformedNOT REPORTEDNormalOhiohealth Doctors Hospital HospitalComment on above:Performed By: #### DIME, LIP, CMPX, TROPI, BNP, CDP, PT #### [address] [place] [address] Checker In: Prem Muniz ([facility]) [#/Vol]NOT REPORTEDNormalOhiohealth Doctors Hospital HospitalComment on above:Performed By: #### DIME, LIP, CMPX, TROPI, BNP, CDP, PT #### [facility] [address] [place], [place] [id number] Checker In: ARNIE Muniz morphology finding Nom (Bld)NOT REPORTED NormalMansfield HospitalComment on above:Performed By: #### DIME, LIP, CMPX, TROPI, BNP, CDP, PT #### [facility] [address] [place] [address] Checker In: CAMILA Muniz MorphologyNOT REPORTEDNormalMansfield HospitalComment on above:Performed By: #### DIME, LIP, CMPX, TROPI, BNP, CDP, PT #### [facility] [address] [place] [address] Checker In: Sami Dominguez MDCTA CHEST ABDOMEN PELVIS W [...] Signed by: Yunier Yang MD 08/02/19 Final resultNormalMerThe Hospital of Central [facility] pepe Incoming Radiant Results From [employer] - 08/02/2019 1:21 PM EDT EXAMINATION: CTA [...] recommended. Reference: J Am Danika Radiol 2013;10:675-681 [facility] ColumbusAMINATION: CTA OF THE CHEST, ABDOMEN AND PELVIS [...] course and caliber without aneurysmaldilatation or dissection.[facility], [place]VIN evidence for aneurysmal dilatation or dissection of the aorta or its branches. Findings most compatible with polycystic kidney disease. Subtle inflammation adjacent to the descending colon is suggestive of subtle colitis. No perforation or abscess formation. No free intraperitoneal air or fluid.4.1 cm benign appearing ovarian cyst No follow-up imaging is recommended. Reference: J Am Danika Radiol 2013;10:675-681[facility] HospitalSumanth Metabolic Pr/rfx MGon 08-02-2019(cont.) [facility] SystemComment on above:Result Comment: Average GFR for 40- 49 years old: 99 mL/min/1.73sq m Chronic Kidney Disease: <60 mL/min/1.73sq m Kidney failure: <15 mL/min/1.73sq m eGFR calculated using average adult body mass. Additional eGFR calculator available at: http://www.[employer]/multiple_crcl_2012.htmPerformed By: #### DIME, LIP, CMPX, TROPI, BNP, CDP, PT #### [facility] [address] [place] [address] [place] [address] Checker In: Sami Dominguez MDAlbumin [Mass/Vol]4.4 g/dLNormal3.5-5.2MercBridgeport HospitalComment on above:Performed By: #### DIME, LIP, CMPX, TROPI, BNP, CDP, PT #### [facility] [address] [place] [address] Checker In: Sami Dominguez MDAlbumin/Globulin [Mass ratio]1.0 {ratio}Normal 1.0-2.5[facility] HospitalComment on above:Performed By: #### DIME, LIP, CMPX, TROPI, BNP, CDP, PT #### [address] [place] [address] Checker In: Macario Muniz Phos98 U/QVicjkp75-244QruqnMansfield HospitalComment on above:Performed By: #### DIME, LIP, CMPX, TROPI, BNP, CDP, PT #### [address] [place], [place] Checker In: RAMIREZ Muniz [Catalytic activity/Vol]16 U/LNormal5-33[facility] HospitalComment on above:Performed By: #### DIME, LIP, CMPX, TROPI, BNP, CDP, PT #### [address] [place] [address] Checker In: Dianna Muniz gap [Moles/Vol]18 mmol/LHigh9-17[facility] HospitalComment on above:Performed By: #### DIME, LIP, CMPX, TROPI, BNP, CDP, PT #### [address] [place], [place] [address] Checker In: BLANCA Muniz [Catalytic activity/Vol]18 U/LNormal<32M[facility] HospitalComment on above:Performed By: #### DIME, LIP, CMPX, TROPI, BNP, CDP, PT #### [address] [place] [address] Checker In: Sami Dominguez MDBilirubin Ql (U)0.31 mg/dLNormal0.3-1.2MCrystal Clinic Orthopedic CenterComment on above:Performed By: #### DIME, LIP, CMPX, TROPI, BNP, CDP, PT #### [address] [place] [address] Checker In: Sami Dominguez MDBUN/CRE Joxxr11Ujrmuz6-28Fuurx [facility] Comment on above:Performed By: #### DIME, LIP, CMPX, TROPI, BNP, CDP, PT #### [facility] [address] [place], [place] [phone] Checker In: ABRAHAM Munizalcium [Mass/Vol]9.7 mg/dLNormal8.6-10.4[facility] HospitalComment on above:Performed By: #### DIME, LIP, CMPX, TROPI, BNP, CDP, PT #### [address] [place] [address] Checker In: ABRAHAM Munizhloride [Moles/Vol]95 mmol/VXhv88-248OektlMansfield HospitalComment on above:Performed By: #### DIME, LIP, CMPX, TROPI, BNP, CDP, PT #### [address] [place], [place] Checker In: ABRAHAM MunizO2 [Moles/Vol]18 mmol/SOkx96-59Sajtx [facility]iffin HospitalComment on above:Performed By: #### DIME, LIP, CMPX, TROPI, BNP, CDP, PT #### [address] [place], [place] [phone] Checker In: ABRAHAM Munizreatinine [Mass/Vol]3.07 mg/dLHigh0.50-0.90[facility] HospitalComment on above:Performed By: #### DIME, LIP, CMPX, TROPI, BNP, CDP, PT #### [address] [place], [place] [address] Checker In: LUISA Muniz, Amer20 mL/minLow>60[facility] HospitalComment on above:Performed By: #### DIME, LIP, CMPX, TROPI, BNP, CDP, PT #### [address] [place], [place] [id number] Checker In: Sami Dominguez MDGFR,non Amer17 mL/minLow>60[facility] HospitalComment on above:Performed By: #### DIME, LIP, CMPX, TROPI, BNP, CDP, PT #### [address] [place] [address] Checker In: Sami Dominguez MDGlucose [Mass/Vol]89 mg/rUDuyoni93-86Jchst [facility] HospitalComment on above:Performed By: #### DIME, LIP, CMPX, TROPI, BNP, CDP, PT #### [address] [place] [address] Checker In: Sami Dominguez MDPotassium [Moles/Vol]3.9 mmol/LNormal3.7-5.3Mcherrington hospitaly Phoenix HospitalComment on above:Performed By: #### DIME, LIP, CMPX, TROPI, BNP, CDP, PT #### [address] [place] [address] Checker In: Sami Dominguez MDProtein [Mass/Vol]8.8 g/dLHigh6.4-8.3MHolzer Health System HospitalComment on above:Performed By: #### DIME, LIP, CMPX, TROPI, BNP, CDP, PT #### [address] [place] [address] Checker In: Sami Dominguez MDSodium [Moles/Vol]131 mmol/TKhg090-251Dnjiv [facility] HospitalComment on above:Performed By: #### DIME, LIP, CMPX, TROPI, BNP, CDP, PT #### [address] [place] [address] Checker In: RAMESH Muniztaging:NormalOhiohealth Doctors Hospital HospitalComment on above:Result Comment: Stage 1: Some kidney damage normal GFR Stage 2: Mild kidney damage GFR 60-89 Stage 3: Moderate kidney damage GFR 30-59 Stage 4: Severe kidney damage GFR 15-29 Stage 5: Severe kidney damage GFR <15 ESRD - chronic treatment by dialysis or transplantPerformed By: #### DIME, LIP, CMPX, TROPI, BNP, CDP, PT #### [facility] [address] [place] [address] Checker In: Sami Dominguez MDUrea nitrogen [Mass/Vol]39 mg/dLHigh6-20[facility] HospitalComment on above:Performed By: #### DIME, LIP, CMPX, TROPI, BNP, CDP, PT #### [facility] [address] [place] [address] Checker In: Sami Dominguez [facility] PAWHUSKAomprehensive Metabolic Panel w/ Reflex to MGon [id number] [Mass/Vol]4.4 g/dL3.5 - 5.2 g/dLTriHealth Bethesda North Hospital, [place] Albumin/Globulin [Mass ratio]1.0 {ratio}[facility], KYALP [Catalytic activity/Vol]98 U/L35 - 104 U/LMProMedica Toledo Hospital [place], KYALT [Catalytic activity/Vol] 16 U/L5 - 33 U/[facility] [place], KYAnion gap [Moles/Vol]18 mmol/LHigh9 - 17 mmol/LMProMedica Toledo Hospital [place], KYAST [Catalytic activity/Vol]18 U/L<32[facility], KYBilirubin Ql (U)0.31 mg/dL0.3 - 1.2 mg/dLClermont County Hospital [place], KYBun/Cre Ratio13 [facility], KYCalcium [Mass/Vol]9.7 mg/dL8.6 - 10.4 mg/dLTriHealth Bethesda North Hospital, KYChloride [Moles/Vol]95 mmol/LLow98 - 107 mmol/LMSumma Health Akron Campus- [place], KYCO2 [Moles/Vol]18 mmol/LLow20 - 31 mmol/LMProMedica Toledo Hospital [place], KYCreatinine [Mass/Vol] 3.07 mg/dLHigh0.5 - 0.9 mg/dLClermont County Hospital [place], KYGFR Mnkxkgbv75 mL/min Low>60[facility], KYGFR Non- Kvijlxso28 mL/minLow>60[facility], KYGlucose [Mass/Vol]89 mg/dL70 - 99 mg/dLTriHealth Bethesda North Hospital, KYInterpretation and review of laboratory resultsAbnoACMC Healthcare System Glenbeigh, KYPotassium [Moles/Vol]3.9 mmol/L3.7 - 5.3 mmol/LMUniversity Hospitals Parma [facility], KYProtein [Mass/Vol]8.8 g/dLHigh6.4 - 8.3 g/dLTriHealth Bethesda [facility], KYSodium [Moles/Vol]131 mmol/AKbf848 - 144 mmol/LMUniversity Hospitals Parma [facility], KYUrea nitrogen [Mass/Vol]39 mg/dLHigh6 - 20 mg/dL [facility], KYD-Dimer Teston [id number]-Dimer Test1.15 mg/L FEUHigh 0.19-0.50Mansfield HospitalComment on above:Result Comment: Elevated levels of [...] LIP, CMPX, TROPI, BNP, CDP, PT #### [facility] [address] [place] [address] [place] [id number] Checker In: Sami Dominguez, MDD-Dimer, Quantitativeon [id number]-Dimer, Quant 1.15[facility], KYComment on above: Elevated levels of D [...] of 98%). Interpretation and review of laboratory resultsAbnoACMC Healthcare System Glen[facility]igh, [place] Lactate, Sepsison [id number] Acid, Sepsis3.6 mmol/LHigh0.5-1.9Mansfield HospitalComment on above:Performed By: #### LACDS #### [facility] [address] [place], [place] [id number] Checker In: Omayra Muniz,Sep WbldNOT REPORTEDNormal0.5-1.9 [place] HospitalComment on above:Performed By: #### LACDS #### [facility] [address] [place] [address] Checker In: Sami Dominguez MDInterpretation and review of laboratory results AbnormalTri[facility], KYLactic Acid, Sepsis3.6 mmol/LHigh0.5 - 1.9 mmol/L [facility], KYLactic Acid, Sepsis, Whole BloodNOT REPORTED0.5 - 1.9 mmol/L [facility], KYLactic Acidon [id number] [Moles/Vol]1.0 mmol/LNormal 0.5-2.2MHolzer Health System HospitalComment on above:Performed By: #### DIME, LIP, CMPX, TROPI, BNP, CDP, PT #### [facility] [address] [place], [place] [phone] Checker In: Janet Munizate [Moles/Vol]NOT REPORTEDNormal0.7-2.1MHolzer Health System HospitalComment on above:Performed By: #### DIME, LIP, CMPX, TROPI, BNP, CDP, PT #### [facility] [address] [place], [place] [phone] Checker In: Omayra Muniz, Plasmaon [id number] [Moles/Vol]1 mmol/L0.5 - 2.2 mmol/LMUniversity Hospitals Parma [facility] Center, KYLactic Acid, Whole Blood NOT REPORTED0.7 - 2.1 mmol/LMUniversity Hospitals Parma Medical Center, TORSTENLipaseon [id number] [Catalytic activity/Vol]38 U/OBkrovh59-18JdctfMansfield HospitalComment on above: Performed By: #### DIME, LIP, CMPX, TROPI, BNP, CDP, PT #### [facility] [address] [place] [address] Checker In: Sami Dominguez MDLipase [Catalytic activity/Vol]38 U/L13 - 60 U/L [facility], TORSTENMetabolic Panelon 27-87-7821OVL/1.73 sq M predicted among non-blacks MDRD (S/P/Bld) [Vol rate/Area][facility] TORSTENComtrinity health livingston hospital on above: Stage 1: Some kidney [...] body mass. Additional eGFR calculator available at: http://www.Altocom/multiple_crcl_2012.htm Microscopic Urinalysison 96-20-8115Zcppycltg, UANOT REPORTEDNoneMeAvita Health System Bucy[facility]- [place], KYBacteria, UA1+AbnormalNoneMeAvita Health System [facility]- [place], KYCasts UANOT REPORTED/LPF [facility] [place], KYCrystals UANOT REPORTEDNone /HPFShelby [facility]- [place], [place] Epithelial Cells UA2 TO 5[facility] [place], KYInterpretation and review of laboratory resultsAbnormalShelby Memorial Hospital Health- [place], KYMucus, UANOT REPORTEDNoneMesumma health barberton [facility] Health- [place], KYOther Observations UANOT REPORTEDNOT REQ.[facility], KYRBC (U) [#/Vol]NoneShelby [facility]- [place], KYRenal Epithelial, UrineNOT REPORTED0 /HPF [facility]- [place], KYTrichomonas, UANOT REPORTEDNoneMeCleveland Clinic Luther[facility], KYWBC, UA50 TO 100[facility], KYYeast, UANOT REPORTEDNonOhio [facility], [place]-[facility], KYPTon [id number] Coag (PPP) [Relative time]1.0 {INR}Normal 0.9-1.2Mcherrington hospitaly Middlesex HospitalComment on above:Performed By: #### DIME, LIP, CMPX, TROPI, BNP, CDP, PT #### [facility] [address] [place] [address] Checker In: BEVERLEY Muniz Coag (PPP) [Time]10.0 sNormal9.7-12.2MCrystal Clinic Orthopedic CenterComment on above:Performed By: #### DIME, LIP, CMPX, TROPI, BNP, CDP, PT #### [facility] [address] [place] [address] Checker In: Vernon MunizINRon [id number] Coag (PPP) [Relative time]1.0 {INR}[facility], KYPT Coag (PPP) [Time]10 sMUniversity Hospitals Parma Medical Center, [place] Troponinon [id number] I.cardiac [Mass/Vol]ng/mLNormal<0.03Mansfield HospitalComment on above:Result Comment: Troponin T results cannot be compared to Troponin-I results.Performed By: #### DIME, LIP, CMPX, TROPI, BNP, CDP, PT #### [facility] [address] [place] [address] Checker In: Raul Muniz I.cardiac [Mass/Vol]NormalMansfield HospitalComtrinity health livingston hospital on above:Result Comment: Reference Range: <0.03 [...] LIP, CMPX, TROPI, BNP, CDP, PT #### [facility] [address] [place] [address] Checker In: Raul Muniz I.cardiac [Mass/Vol]NOT REPORTEDNormal 0-14[facility] Medical Centerment on above:Performed By: #### DIME, LIP, CMPX, TROPI, BNP, CDP, PT #### [facility] [address] [place] [address] Checker In: Raul Muniz I.cardiac [Mass/Vol][place] Comment on above:Reference Range: <0.03 Within reference range. 0.03-0.09 Possible myocardial damage. Repeat at appropriate intervals to rule out chronic elevation. >= 0.10 Indicative of myocardial damage. Patients with high levels of Biotin oral intake (i.e >5mg/day) may have falsely decreased Troponin T levels. Samples collected within 8 hours of biotin intake may require additional information for diagnosis. Troponin T.cardiac [Mass/Vol]ug/L<0.03 ng/mLBurchard, KYComment on above:Troponin T results cannot be compared to Troponin-I results.Troponin, High SensitivityNOT REPORTED0 - 14 ng/LMHub[place], KYTalisha Velasquezcardiac [Mass/Vol]ng/mLNormal<0.03Mansfield HospitalComment on above:Result Comment: Troponin T results cannot be compared to Troponin-I results.Performed By: #### DIME, LIP, CMPX, TROPI, BNP, CDP, PT #### [facility] [address] [place] [address] Checker In: Raul Muniz I.cardiac [Mass/Vol]NormalMansfield HospitalComment on above:Result Comment: Reference Range: <0.03 [...] LIP, CMPX, TROPI, BNP, CDP, PT #### [facility] [address] [place] [address] Dr. [place], [place] [phone] Checker In: Raul Muniz I.cardiac [Mass/Vol]NOT REPORTEDNormal 0-14Mansfield HospitalComment on above:Performed By: #### DIME, LIP, CMPX, TROPI, BNP, CDP, PT #### [address] [place], [facility] Checker In: Raul Muniz I.cardiac [Mass/Vol][place] Comment on above:Reference Range: <0.03 Within reference range. 0.03-0.09 Possible myocardial damage. Repeat at appropriate intervals to rule out chronic elevation. >= 0.10 Indicative of myocardial damage. Patients with high levels of Biotin oral intake (i.e >5mg/day) may have falsely decreased Troponin T levels. Samples collected within 8 hours of biotin intake may require additional information for diagnosis. Troponin T.cardiac [Mass/Vol]ug/L<0.03 ng/mLBurchard, KYComment on above:Troponin T results cannot be compared to Troponin-I results.Troponin, High SensitivityNOT REPORTED0 - 14 ng/LMHub[place], KYUA w/Reflex Cultureon [id number] Acid,UrNegativeNormalNEGOhiohealth Doctors Hospital HospitalComment on above:Performed By: #### DIME, LIP, CMPX, TROPI, BNP, CDP, PT #### [address] [place], [facility] Checker In: Rolando Munizirubin, SemiQt,UrNegativeNormalNEGOhiohealth Doctors Hospital HospitalComment on above:Performed By: #### DIME, LIP, CMPX, TROPI, BNP, CDP, PT #### [facility] [address] [place], [facility] Checker In: Sami Dominguez [facility] PAWHUSKAolor (U)YELLOWNormalYKettering Health Dayton Comment on above:Performed By: #### DIME, LIP, CMPX, TROPI, BNP, CDP, PT #### [facility] [address] [place], [place] [address] Checker In: Sami Dominguez MDGlucose Ql (U)NegativeNormalNEGMansfield HospitalComment on above:Performed By: #### DIME, LIP, CMPX, TROPI, BNP, CDP, PT #### [facility] [address] [place] [address] Dr. [place], [facility] Checker In: Sami Dominguez MDHemoglobin, Ur1+AbnormalParkview Health Comment on above:Performed By: #### DIME, LIP, CMPX, TROPI, BNP, CDP, PT #### [facility] [address] [place] [address] Dr. [place], [place] [address] Checker In: Sami Dominguez MDLeukocyte esterase Test strip Ql (U)MODERATE AbnormalNEGMansfield HospitalComment on above:Performed By: #### DIME, LIP, CMPX, TROPI, BNP, CDP, PT #### [address] [place], [place] [address] Checker In: Sami Dominguez MDNitrite,UrNegativeNormMercy Health St. Charles Hospital Comment on above:Performed By: #### DIME, LIP, CMPX, TROPI, BNP, CDP, PT #### [facility] [address] [place] [address] Dr. [place], [facility] Checker In: Sami Dominguez [facility] (U)6.0 [pH]Normal5.0-9.0[facility] Comment on above:Performed By: #### DIME, LIP, CMPX, TROPI, BNP, CDP, PT #### [facility] [address] [place] [address] Checker In: BETTE Munizrotein Ql (U)TRACEAbnormMercy Health St. Charles HospitalComment on above:Performed By: #### DIME, LIP, CMPX, TROPI, BNP, CDP, PT #### [facility] [address] [place], [place] [phone] Checker In: RAMESH Munizpecific gravity (U) [Rel density]1.010Normal 1.010-1.020Mansfield HospitalComment on above:Performed By: #### DIME, LIP, CMPX, TROPI, BNP, CDP, PT #### [facility] [address] [place], [place] [phone] Checker In: NEVIN Munizpenn highlands healthcareCLEARAvita Health System [facility] Comment on above:Performed By: #### DIME, LIP, CMPX, TROPI, BNP, CDP, PT #### [facility] [address] [place] [address] [place] [address] Checker In: Sami Dominguez MDUrobilinogen,UrNormalNormMercy Health Lorain HospitalComment on above:Performed By: #### DIME, LIP, CMPX, TROPI, BNP, CDP, PT #### [facility] [address] [place], [place] [phone] Checker In: Federica MunizNOT REPORTEDBlanchard Valley Health System Comment on above:Performed By: #### DIME, LIP, CMPX, TROPI, BNP, CDP, PT #### [facility] [address] [place], [place] [phone] Checker In: Sami Dominguez MDUrinalysis Reflex to Cultureon 08-02-2019 Bilirubin UrineNegativeNEGATIVENorwalk Memorial Hospital- [place], KYColor, UAYELLOWYELLOWNorwalk Memorial Hospital- [place], KYGlucose, UrNegativeNEGATIVEMercy Health- [place], KYInterpretation and review of laboratory resultsAbnormalMercy Health- [place], KYKetones Ql (U)Negative NEGATIVEMercy Health- [place], KYLeukocyte esterase Test strip Ql (U)MODERATEAbnormal NEGATIVEMercy Health- [place], KYNitrite, UrineNegativeNEGATIVEMercy Health- [place], [place] pH, UA6.0[facility]- [place], KYProtein (U) [Mass/Vol]TRACEAbnormalNEGATIVEMercy Health- [place], KYSpecific [place], UA1.010[facility]- [place], KYTurbidity UACLEAR CLEARMer Health- [place], KYUrinalysis CommentsNOT REPORTEDMercy Health- [place], [place] Urine Hgb1+AbnormalNEGATIVEMercy Health- [place], KYUrobilinogen, UrineNormalNormal [facility] [place], KYUrinalysis,Microon 08-02-2019-----NormalOhiohealth Doctors Hospital HospitalComment on above:Performed By: #### DIME, LIP, CMPX, TROPI, BNP, CDP, PT #### [facility] [address] [place] [address] [place] [address] Checker In: Sami Dominguez MDBacteria LM.HPF (Urine sed) [#/Area]1+Abnormal NONEMansfield HospitalComment on above:Performed By: #### DIME, LIP, CMPX, TROPI, BNP, CDP, PT #### [address] [place] [id number] Checker In: Sami Dominguez MDEpithelial cells LM.HPF (Urine sed) [#/Area]2 TO 4Iwittj5-67IfmppMansfield HospitalComment on above:Performed By: #### DIME, LIP, CMPX, TROPI, BNP, CDP, PT #### [address] [place] [address] Checker In: MILES MunizBC (U) [#/Vol]NoneNormal0-2MCrystal Clinic Orthopedic Center Comment on above:Performed By: #### DIME, LIP, CMPX, TROPI, BNP, CDP, PT #### [address] [place] [address] Checker In: JENNIFER Muniz (U) [#/Vol]50 TO 771Ftsrku6-4Irdno Phoenix HospitalComment on above:Performed By: #### DIME, LIP, CMPX, TROPI, BNP, CDP, PT #### [address] [place] [address] Checker In: Sami Dominguez MDAst. mary medical centermichelle sediment LM Ql (Urine sed)NOT REPORTED NormalNONEMeNorth Mississippi Medical Center HospitalComment on above:Performed By: #### DIME, LIP, CMPX, TROPI, BNP, CDP, PT #### [address] [place] [address] Checker In: ABRAHAM Munizasts LM.LPF (Urine sed) [#/Area]NOT REPORTED NormalMercy Phoenix HospitalComment on above:Performed By: #### DIME, LIP, CMPX, TROPI, BNP, CDP, PT #### [address] [place] [address] Checker In: ABRAHAM Munizrystals LM Nom (Urine sed)NOT REPORTEDNormalNONE [facility] HospitalComment on above:Performed By: #### DIME, LIP, CMPX, TROPI, BNP, CDP, PT #### [address] [place] [address] Checker In: aSmi Dominguez MDEpithelial, RenalNOT YKFJANZFHggyan2Suoxl Phoenix HospitalComment on above:Performed By: #### DIME, LIP, CMPX, TROPI, BNP, CDP, PT #### [address] [place] [address] Checker In: Andry Munizus StrandsNOT REPORTEDNormalNONEMercy Phoenix HospitalComment on above:Performed By: #### DIME, LIP, CMPX, TROPI, BNP, CDP, PT #### [facility] [address] [place] [address] Checker In: Sami Dominguez MDOther ObservationsNOT REPORTEDNormalNREQOhiohealth Doctors Hospital HospitalComment on above:Performed By: #### DIME, LIP, CMPX, TROPI, BNP, CDP, PT #### [facility] [address] [place] [address] Checker In: Sami Dmoinguez MDTrichomonasNOT REPORTEDNormalNONEMeNorth Mississippi Medical Center HospitalComment on above:Performed By: #### DIME, LIP, CMPX, TROPI, BNP, CDP, PT #### [facility] [address] [place], [place] [phone] Checker In: Sami Dominguez MDYeast LM Ql (Urine sed)NOT REPORTEDNormalNONE Mansfield HospitalComment on above:Performed By: #### DIME, LIP, CMPX, TROPI, BNP, CDP, PT #### [facility] [address] [place], [place] [phone] Checker In: SARAH Muniz CHEST PORTABLEon [id number] CHEST PORTABLE EXAMINATION: ONE XRAY VIEW OF [...] Signed by: Cullen Ngo MD 08/02/19 Final resultNormalMansfield HospitalEXAMINATION: ONE XRAY VIEW OF THE CHEST 08/02/2019 12:59 pm COMPARISON: None. HISTORY: ORDERING SYSTEM PROVIDED HISTORY: CP TECHNOLOGIST PROVIDED HISTORY: CP FINDINGS: Heart size and pulmonary vessels are within normal limits. Lungs are clear. No focal infiltrates or significant pleural effusions are seen. There is no acute osseous abnormality. Monitor leads overlie the chest.[facility] John Medical CenterBeyondTrustALVIN J. SITEMAN CANCER CENTERKerrie acute cardiopulmonary process.[employer] [facility] [place], [place] Incoming Radiant Results From [employer]/Tra[employer] - 08/02/2019 1:10 PM EDT EXAMINATION: ONE [...] the chest. IMPRESSION: No acute cardiopulmonary process. [employer]- [place], [place] Vital Signs Date TimeVital SignValuePerforming CakdghjuuWvmyhpni71-15-7867 14:23-0400Body .9 cmGina Risaliti DIRECTOR BANKING Work Phone: Finanzchef24[facility] springfieldCgtuooyirx21-23-2606 14:23-0400Body mass index (BMI) [Ratio]34.77 kg/m2Gina Risaliti DIRECTOR BANKING Work Phone: NOMercy hospital springfieldVtfnzgpdqh61-99-1098 14:23-0400Body enlffo61.46 kgGina Risaliti DIRECTOR BANKING Work Phone: [phone] hospital springfieldFwbhfxiljq20-40-6974 14:23-0400Diastolic blood mm[Hg]Calista Risaliti DIRECTOR BANKING Work Phone: NOMercy hospital springfieldPfgshidblt78-30-6540 14:23-0400Heart rate83 /min Calista Risaliti DIRECTOR BANKING Work Phone: NOMercy hospital springfieldUyopyrenui79-76-7931 14:23-2792VtI3% (BldA) [Mass fraction]99 %Calista Risaliti DIRECTOR BANKING Work Phone: NOMercy hospital springfieldQqldztqgsh38-80-9738 14:23-0400Systolic blood chasusfb488 mm[Hg]Calista Risaliti DIRECTOR BANKING Work Phone: [place] [address]Xvrusswurc46-57-2227 12:33-0400Body sizbnm311.94 Desi Wong MD Work Phone: [facility]08-19-2025 12:33-0400 Body wncheagtkxq70.9 [degF]Perri Wong MD Work Phone: [phone] [place], [place] 2253808-19-2025 12:33-0400 Body xmywlv54.05 kgPerri Wong MD Work Phone: [phone]08-19-2025 12:33-0400 Diastolic blood xozkahgk24 mm[Hg]Perri Wogn MD Work Phone: [phone]08-19-2025 12:33-0400 Heart rate79 /minPerri Wong MD Work Phone: [phone]08-19-2025 12:33-0400 Respiratory rate18 /minPerri Wong MD Work Phone: [phone]08-19-2025 12:33-0400 SaO2% (BldA) [Mass fraction]98 %Perri Wong MD Work Phone: [phone] [place], [place] 2253808-19-2025 12:33-0400 Systolic blood lkehuylp420 mm[Hg]Perri Wong MD Work Phone: [phone] [place], [place] 2253807-07-2025 08:08-0400 Body .9 cmMing Alexis DO Work Phone: [phone] HealthHhfgtvqaqy30-78-7446 08:08-0400Body mass index (BMI) [Ratio]34.69 kg/t2GhtuhefMing Espinoza DO Work Phone: [phone] [place], [place] [address]Tipnmusbvk01-13-0248 08:08-0400Body frbwty74.28 kgMing Espinoza DO Work Phone: [phone] HealthXoobiguwix78-74-7977 08:08-0400Heart rate78 /min Ming Espinoza DO Work Phone: [phone] HealthGxzozdtbag30-90-8230 08:08-8007YiE3% (BldA) [Mass fraction]99 %Ming Espinoza DO Work Phone: [facility] HealthZyfkeokgyz26-16-9281 14:24-0400Body mass index (BMI) [Ratio]34.77 kg/j5MjmonajMing Espinoza DO Work Phone: [facility] HealthMsgrxtwpom00-63-8392 14:24-0400Body yamhdn39.46 kgJekirsten Espinoza DO Work Phone: [facility] HealthImjpnrntyd96-94-0774 14:24-0400Diastolic blood ekhiuhqy44 mm[Hg]Ming Espinoza DO Work Phone: [phone] [place], [place] [address]Cucysztqbn61-11-3590 14:24-0400Heart rate78 /min Ming Espinoza DO Work Phone: [address] [place], [place] [address]Jgiuaevshu96-78-0326 14:24-3625LkI4% (BldA) [Mass fraction]97 %Ming Espinoza DO Work Phone: [address] [place], [place] [address]Uxdfpcclxy85-13-5742 14:24-0400Systolic blood yepofyme621 mm[Hg]Ming Espinoza DO Work Phone: [phone] [place], [place] [address]Swijhqlmko58-24-2127 08:19-0500Body qlvxge086.9 cmMing Espinoza DO Work Phone: [phone] [place], [place] [address]Ephunbnjll71-68-6529 08:19-0500Body mass index (BMI) [Ratio]34.2 kg/y3XtpqckfMing Espinoza DO Work Phone: [phone]al HealthHrqgrrrerw18-22-1403 08:19-0500Body uobved83.1 kg Ming Espinoza DO Work Phone: [phone] [place], [place] [address]Xjampxubtf59-27-5729 08:19-0500Diastolic blood ualxsglv79 mm[Hg]Ming Espinoza DO Work Phone: [phone] [address]Ngcmuvbsgu92-32-8348 08:19-0500Heart rate88 /min Ming Espinoza DO Work Phone: [phone] [address]Iwtettubea47-42-0096 08:19-4964MlZ3% (BldA) [Mass fraction]98 %Ming Espinoza DO Work Phone: [phone]-9307Cr[facility] Behavioral HealthUetfclnbaw33-07-9350 08:19-0500Systolic blood njvyxsqb942 mm[Hg]Ming Espinoza DO Work Phone: [facility] HealthMwezfuwjbc91-51-2206 08:34-0400Body temperature 97.81 [degF]Lucero Hudson DIRECTOR BANKING Work Phone: [facility] HealthDwgimitldj05-43-4280 08:34-0400Diastolic blood gxfcgebo49 mm[Hg]Lucero Hudson DIRECTOR BANKING Work Phone: [facility] HealthQadofqqlkk56-52-3332 08:34-0400Heart rate83 /min Lucero Hudson DIRECTOR BANKING Work Phone: [facility] HealthSjgvgyjohu54-57-3462 08:34-3994PuR9% (BldA) [Mass fraction]98 %Lucero Hudson DIRECTOR BANKING Work Phone: [facility] HealthZajsmydrmk32-82-9990 08:34-0400Systolic blood vctcbvso070 mm[Hg]Lucero Hudson DIRECTOR BANKING Work Phone: [facility] HealthPnvzukbbpo37-92-8127 17:34-0400Body wanuac104.48 cmAPRN Andreia Jerry Work Phone: [facility]06-10-2024 17:34-0400 Body mass index (BMI) [Ratio]31.8 kg/m2APRN Andreia Jerry Work Phone: [facility]06-10-2024 17:34-0400 Body jetscrxnhdh685.3 [degF]SENIOR ELECTRICAL DESIGNER Andreia Jerry Work Phone: [facility]06-10-2024 17:34-0400 Body kzaobr73.92 kgAPRN Andreia Jerry Work Phone: [facility]06-10-2024 17:34-0400 Diastolic blood ozogahem27 mm[Hg]SENIOR ELECTRICAL DESIGNER Andreia Jerry Work Phone: [facility]06-10-2024 17:34-0400 Heart rate88 /minAPRN Andreia Jerry Work Phone: [facility]06-10-2024 17:34-0400 Respiratory rate18 /minAPRN Andreia Boyceb Work Phone: [facility]06-10-2024 17:34-0400 SaO2% (BldA) [Mass fraction]96 %SENIOR ELECTRICAL DESIGNERRoxy Boyceb Work Phone: [facility]06-10-2024 17:34-0400 Systolic blood utqpejho286 mm[Hg]SENIOR ELECTRICAL DESIGNER Andreia Boyceb Work Phone: [facility]10-25-2022 17:40-0400 Body bouxuv349.48 cmAbdul Toni Other [employer] Other 777002-75-7611 17:40-0400Body mass index (BMI) [Ratio] 36.69 kg/x1Vsgcm Toni Other [employer] Other 10-25-2022 17:40-0400Body okozitzkken03.4 [degF]Yaneth Toni Other [employer] Other 10-25-2022 17:40-0400Body yjjqov19.99 kgAbdul Toni Other [employer] Other 10-25-2022 17:40-0400Diastolic blood xgdssqye19 mm[Hg] Yaneth Toni Other [employer] Other 10-25-2022 17:40-0400Respiratory rate18 /minAbdul Toni Other [employer] Other 10-25-2022 17:40-2497TcK5% (BldA) [Mass fraction]99 % Yaneth Toni Other [employer] Other 10-25-2022 17:40-0400Systolic blood mm[Hg] Yaneth Amaror Other nouniversity [facility] [employer] Other 09-28-2022 09:45-0400Body ahndzb315.48 cmEstefania Vo Other [place] [employer] Other 09-28-2022 09:45-0400Body mass index (BMI) [Ratio] 36.76 kg/u9DnjvgbEstefania Vo Other [place] [employer] Other 09-28-2022 09:45-0400Body oobvfalebwj75 [degF]Estefania Vo Other [place] [employer] Other 09-28-2022 09:45-0400Body ptmfyi18.17 kgEstefania Vo Other [facility] [employer] Other 09-28-2022 09:45-0400Diastolic blood xzpctkuw92 mm[Hg] Estefania Vo Other [place] [employer] Other 09-28-2022 09:45-1998VnK3% (BldA) [Mass fraction]99 % Estefania Vo Other [facility] Other 09-28-2022 09:45-0400Systolic blood exdmciaa068 mm[Hg] Estefania Vo Other [employer] Other 09-15-2022 16:10-0400Diastolic blood zteikasd32 mm[Hg] DO Ming Alexis Work Phone: [facility]09-15-2022 16:10-0400 Heart rate69 /Hong Espinoza Work Phone: [phone]09-15-2022 16:10-0400 Respiratory rate18 /Hong Espinoza Work Phone: [address] [place], [place] [address]109-15-2022 16:10-0400 SaO2% (BldA) [Mass fraction]100 %DO Ming Espinoza Work Phone: [phone] [place], [place] 2253809-15-2022 16:10-0400 Systolic blood ousxpcpc814 mm[Hg]DO Minglizz Espinoza Work Phone: [phone] [place], [place] 2253809-15-2022 13:15-0400 Body nyxwjy304.48 cmDO Ming Espinoza Work Phone: [phone]09-15-2022 13:15-0400 Body romhblnwazg01.6 [degF]DO Ming Espinoza Work Phone: [phone] [place], [place] 2253809-15-2022 13:15-0400 Body .5 kgDO Ming Espinoza Work Phone: [phone] [place], [place] 2253809-13-2022 10:45-0400 Diastolic blood mm[Hg]DO Ming Espinoza Work Phone: [facility]09-13-2022 10:45-0400 Heart rate66 /Hong Espinoza Work Phone: [address] [place], [place] 0[address]109-13-2022 10:45-0400 Respiratory rate16 /Hong Lai Alexis Work Phone: [facility]09-13-2022 10:45-0400 SaO2% (BldA) [Mass fraction]100 %DO Minglizz Espinoza Work Phone: [phone]09-13-2022 10:45-0400 Systolic blood rkkurrfw409 mm[Hg]DO Ming Espinoza Work Phone: [facility]09-13-2022 08:08-0400 Body mass index (BMI) [Ratio]37.8 kg/m2DO Ming Espinoza Work Phone: [facility]09-13-2022 07:41-0400 Body yejtmo904.48 cmDO Ming Espinoza Work Phone: [facility]09-13-2022 07:41-0400 Body mjnohe82.89 kgDO Ming Espinoza Work Phone: [facility]09-13-2022 06:26-0400 Body pglmnoucyto37.5 [degF]DO Ming Espinoza Work Phone: [facility]08-25-2022 11:00-0400 Body xmyztm203.48 cmMaelenita Parham Other [employer] Other 08-25-2022 11:00-0400Body mass index (BMI) [Ratio] 36.76 kg/t9KmehmbrJesus Parham Other [place] [employer] Other 08-25-2022 11:00-0400Body mdpcofndibc12.6 [degF] Jesus Parham Other [employer] Other 08-25-2022 11:00-0400Body zuhowk14.17 kgMattchong Parham Other [place] [employer] Other 08-25-2022 11:00-0400Diastolic blood ndvjwnyr36 mm[Hg] Jesus Parham Other [employer] Other 08-25-2022 11:00-6857LgL0% (BldA) [Mass fraction]98 % Jesus Parham Other [employer] Other 08-25-2022 11:00-0400Systolic blood hugfawnf907 mm[Hg] Jesus Parham Other [employer] [employer] Other 07-28-2022 14:40-0400Body kohiyo114.48 cmAbdul Toni Other [employer] Other 07-28-2022 14:40-0400Body mass index (BMI) [Ratio] 36.76 kg/r0Zoipg Toni Other [employer] Other 07-28-2022 14:40-0400Body elmsvkumiyr18.7 [degF]Yaneth Toni Other [employer] Other 07-28-2022 14:40-0400Body iycslx66.17 kgAbdul Toni Other [employer] Other 07-28-2022 14:40-0400Diastolic blood dfpicczl47 mm[Hg] Yaneth Toni Other [employer] Other 07-28-2022 14:40-0400Respiratory rate18 /minAbdul Toni Other [employer] Other 07-28-2022 14:40-5149JbB1% (BldA) [Mass fraction]98 % Yaneth Toni Other [employer] Other 07-28-2022 14:40-0400Systolic blood nxbwxbow706 mm[Hg] Yaneth Toni Other [employer] Other 07-26-2022 10:10-0400Body owpuxy736.48 cmSsindy Juniorault Other [employer] Other 07-26-2022 10:10-0400Body mass index (BMI) [Ratio] 37.86 kg/p3Dzbiztuqr Shantell Other [employer] Other 07-26-2022 10:10-0400Body awlauxaukgl65.4 [degF] Dipika Shantell Other [employer] Other 07-26-2022 10:10-0400Body ewqcpj35.9 kgStmikaela Juniorault Other [employer] Other 07-26-2022 10:10-0400Diastolic blood mm[Hg] Dipika Shantell Other [employer] Other 07-26-2022 10:10-0400Respiratory rate16 /minSsindy Shantell Other [employer] Other 07-26-2022 10:10-9395GsZ9% (BldA) [Mass fraction]100 % Dipikamundo Stinson Other [employer] Other 07-26-2022 10:10-0400Systolic blood mm[Hg] Dipikamundo Stinson Other [employer] Other 06-27-2022 09:13-0400Diastolic blood fjmkqaey30 mm[Hg] DO Ming Espinoza Work Phone: [facility]06-27-2022 09:13-0400 Heart rate83 /Hong Espinoza Work Phone: [phone] [place], [place] 2253806-27-2022 09:13-0400 Respiratory rate16 /Hong Espinoza Work Phone: [phone] [place], [place] 2253806-27-2022 09:13-0400 SaO2% (BldA) [Mass fraction]97 %DO Ming Espinoza Work Phone: [phone] [place], [place] 2253806-27-2022 09:13-0400 Systolic blood hlvxnkel787 mm[Hg]DO Ming Espinoza Work Phone: [phone] [place], [place] 2253806-27-2022 07:23-0400 Body zwcubt046.48 cmDO Ming Espinoza Work Phone: [phone]06-27-2022 07:23-0400 Body mass index (BMI) [Ratio]37.8 kg/m2DO Ming Espinoza Work Phone: [phone] [place], [place] 2253806-27-2022 07:23-0400 Body yjftfpnzjvj56.8 [degF]DO Ming Espinoza Work Phone: [phone] [place], [place] 2253806-27-2022 07:23-0400 Body .89 kgDO Ming Espinoza Work Phone: [phone] [place], [place] 2253803-03-2022 16:20-0500 Body ydjubq460.48 cmAbdul Toni Other [employer] Other 03-03-2022 16:20-0500Body mass index (BMI) [Ratio] 37.86 kg/k0Zhcxe Toni Other [employer] Other 03-03-2022 16:20-0500Body kohojc05.9 kgAbdul Toni Other [employer] Other 03-03-2022 16:20-0500Diastolic blood vbgejggd17 mm[Hg] Yaneth Toni Other [employer] Other 03-03-2022 16:20-0500Respiratory rate18 /minAbdul Toni Other [employer] Other 03-03-2022 16:20-1794XrS9% (BldA) [Mass fraction]97 % Yaneth Toni Other [employer] Other 03-03-2022 16:20-0500Systolic blood ahyhvien945 mm[Hg] Yaneth Toni Other [employer] Other [id number] 16:35-0400Body Hfybhodquxw78.3 [degF][place], [place]10-28-2019 16:27-0400Pulse (Heart Rate)110 /[place]10[place] 16:27-0400Pulse Hkvdxskr25 %[place], [place]10-28-2019 16:27-0400Respiratory Rate14 /[place] 16:16-0400BP Sivjxteho96 mm[Hg][facility], LJ80-03-7584 16:16-0400BP Vfvlwfnq23 mm[Hg][place], [place] 08-02-2019 14:59-0400BMI (Body Mass Index)37.79 kg/k4PzhmbMer[facility] Health [facility], DQ85-11-7947 14:59-0400Body apehda87.72 kg[place] 08-02-2019 14:59-6672Eeyeio196.9 cmTyler [facility] [place] Encounters Encounter DateEncounter TypeCare ProviderFacilityStart: 08-03-2025 End: 00-11-8449Phrenixzt Result EncounterGeneric External Data ProviderNOMS External Department UnsolicitedStart: 08-03-2025 End: 41-21-3623Qxgnsxlfg Result EncounterGeneric External Data ProviderNOMS External Department UnsolicitedStart: 07-05-2025 End: 65-14-6219Nraqsrilq Result EncounterGeneric External Data ProviderNOMS External Department UnsolicitedStart: 07-05-2025 End: 54-78-3737Tdsgthfhc Result EncounterGeneric External Data ProviderNOMS External Department UnsolicitedStart: 06-01-2025 End: 90-90-9899sbfdfyvisiAELWPKettering Health Greene Memorialtart: 05-30-2025 End: 78-47-2907Budbwpyda Result EncounterGeneric External Data ProviderNOMS External Department UnsolicitedStart: 05-30-2025 End: 82-32-7942Cfcrttvpu Result EncounterGeneric External Data ProviderNOMS External Department UnsolicitedStart: 05-27-2025 End: 16-98-8855Cakduo outpatient visit 25 minutesGina Stephy Fajardo NP Work Phone: [facility] Internal MedicineComment on above: Generalized abdominal pain (Primary Dx); Hypokalemia; Immunosuppressed status ([facility]); Essential hypertension ; Type 2 diabetes mellitus with diabetic nephropathy, without long-term current use of insulin ([facility]); Iron deficiency anemia, unspecified iron deficiency anemia type; Gastroesophageal reflux disease without esophagitis; FibromyalgiaStart: 05-27-2025 End: 21-69-1339hicppxqpcgSOTVPYU GARMANNot AvailableStart: 05-24-2025 End: 58-95-7792Ekamotsvo department patient visitPerri Wong MD Work Phone: [phone]-Hoqudhyfg Room Work Phone: Start: 05-04-2025 End: 06-57-2286Qwqmbzkgp Result EncounterGeneric External Data ProviderNOMS External Department UnsolicitedStart: 05-04-2025 End: 78-72-9702Ivagcwptb Result EncounterGeneric External Data ProviderNOMS External Department UnsolicitedStart: 04-11-2025 End: 98-79-7161Xjyrhiy encounter statusMing Espinoza DO Work Phone: noms HealthcareStart: 04-11-2025 End: 56-64-1017Zzwklkgb preventive med est patient 40-64yrsMing Espinoza DO Work Phone: [facility] IMComment on above:Benign essential hypertension (Primary Dx); ADPKD (autosomal dominant polycystic kidney disease); Type 2 diabetes mellitus with stage 3a chronic kidney disease, without long-term current use of insulin (HCC); Renal transplant recipient ([facility]); Mixed anxiety and depressive disorder; Chronic fatigue; Encounter for general health examination; Class 1 obesity due to excess calories with serious comorbidity and body mass index (BMI) of 34.0 to 34.9 in adult; Fibromyalgia; Low vitamin D levelStart: 04-11-2025 End: 21-86-6168kwdvgcezmmLWFXNZC A Long AvailableStart: 04-02-2025 End: 28-89-4761Kbgxywfuh Result EncounterGeneric External Data ProviderNOMS External Department UnsolicitedStart: 04-02-2025 End: 67-18-5354Qnpxwgrdr Result EncounterGeneric External Data ProviderNOMS External Department UnsolicitedStart: 03-03-2025 End: 36-02-8829Venvuqzsj Result EncounterGeneric External Data ProviderNOMS External Department UnsolicitedStart: 03-03-2025 End: 20-37-7355Oaasixctk Result EncounterGeneric External Data ProviderNOMS External Department UnsolicitedStart: 01-29-2025 End: 92-09-1006Qbdqqusea Result EncounterGeneric External Data ProviderNOMS External Department UnsolicitedStart: 01-29-2025 End: 64-55-8190Ckvktjmmx Result EncounterGeneric External Data ProviderNOMS External Department UnsolicitedStart: 01-03-2025 End: 40-53-6130Uldkno outpatient visit 25 minutesMing Preston Alexis DO Work Phone: [facility]oms [facility] IMComment on above:Polycystic kidney disease (Primary Dx); Anemia of renal disease; Immunosuppressive management encounter following kidney transplant (CMS/HCC); Renal transplant recipient (CMS/HCC); Type 2 diabetes mellitus with stage 3a chronic kidney disease, without long-term current use of insulin (HCC) (CMS/HCC); Dyslipidemia (CMS/HCC)Start: 01-03-2025 End: 36-42-0047rbelzxidaxJDRZPCL A GARMANNot AvailableStart: 12-03-2024 End: 79-21-1273Btorassws Result EncounterGeneric External Data ProviderNOMS External Department UnsolicitedStart: 12-03-2024 End: 50-98-1240Zuhquisdv Result EncounterGeneric External Data ProviderNOMS External Department UnsolicitedStart: 11-12-2024 End: 65-44-2889smodogncdqWINFJKettering Health Greene Memorialtart: 11-04-2024 End: 24-34-2104Piedbgcic Result EncounterGeneric External Data ProviderNOMS External Department UnsolicitedStart: 11-04-2024 End: 37-88-7741Osipjjteb Result EncounterGeneric External Data ProviderNOMS External Department UnsolicitedStart: 10-14-2024 End: 09-86-3698Wipwejcvi Result EncounterGeneric External Data ProviderNOMS External Department UnsolicitedStart: 10-14-2024 End: 99-88-2402Jzuitqhar Result EncounterGeneric External Data ProviderNOMS External Department UnsolicitedStart: 10-14-2024 End: 00-47-0934zktexdreftYybclpu Garman DO Work Phone: [facility] Work Phone: Start: 10-14-2024 End: 53-13-4819Ifdnlkbb ReferredChongchemalizz Espinoza DO Work Phone: [facility]-LAB Path Spec [facility]ala HospStart: 10-02-2024 End: 14-59-2831Swvrmmlhe Result EncounterGeneric External Data ProviderNOMS External Department UnsolicitedStart: 10-02-2024 End: 46-82-1501Twjwcktqm Result EncounterGeneric External Data ProviderNOMS External Department UnsolicitedStart: 10-01-2024 End: 94-40-5094Tzfkpz outpatient visit 40 minutesMing Espinoza DO Work Phone: [facility] IMComment on above:Benign essential hypertension (CMS/HCC) (Primary Dx); Renal transplant recipient (CMS/HCC); Immunosuppressive management encounter following kidney transplant ([facility]/HCC); Anemia of renal disease; Iron deficiency anemia, unspecified iron deficiency anemia type; Type 2 diabetes mellitus with stage 3a chronic kidney disease, without long-term current use of insulin (HCC) (CMS/HCC); Dyslipidemia (CMS/HCC); Fibromyalgia; Need for immunization against influenzaStart: 10-01-2024 End: 01-63-8491uawlpiisamIQATDTZ A GARMANNot AvailableStart: 09-14-2024 End: 37-84-4073Oiltkp outpatient visit 10 minutesBlake Hinojosa DO Work Phone: [facility] OBComment on above:Cyst of left ovaryStart: 09-14-2024 End: 78-45-4836aqdcqbvreyLIMJPTM D BRUNERNot AvailableStart: 08-31-2024 End: 87-63-5237Yhtnodwww Result EncounterGeneric External Data ProviderNOMS External Department UnsolicitedStart: 08-31-2024 End: 91-25-6653Gbcuhasmf Result EncounterGeneric External Data ProviderNOMS External Department UnsolicitedStart: 08-25-2024 End: 38-90-6036Sytchqo encounter procedureMing Espinoza DO Work Phone: [facility] Work Phone: Start: 08-25-2024 End: 80-22-5660uphcrvpfbuIceuxwc Garman DO Work Phone: [facility] Work Phone: Start: 08-02-2024 End: 91-68-0075Bjowtftq Result EncounterBlake Hinojosa DO Work Phone: [facility] External Department UnsolicitedStart: 08-02-2024 End: 45-84-7671Gbgrwaib Result EncounterBlake Hinojosa DO Work Phone: [facility] External Department UnsolicitedStart: 08-02-2024 End: 46-80-1843Nqekcq outpatient visit 10 Andre Hinojosa DO Work Phone: [facility] OBComment on above:Cyst of left ovary (Primary Dx); Dyspareunia in femaleStart: 08-02-2024 End: 06-32-4343jreotoeblpWPFEFIX Ginette WISENELIALorraine AvailableStart: 08-02-2024 End: 13-32-8491Qzwtifl encounter procedureDO Ming Espinoza Work Phone: [facility]-XRay [facility] Work Phone: Start: 08-02-2024 End: 08-45-0280balxvvurrbOP Ming Espinoza Work Phone: [facility] Work Phone: Start: 07-31-2024 End: 56-44-9311Chxehpezr Result EncounterGeneric External Data ProviderNOMS External Department UnsolicitedStart: 07-31-2024 End: 35-10-2685Uubohjsmg Result EncounterGeneric External Data ProviderNOMS External Department UnsolicitedStart: 07-27-2024 End: 87-04-9398Xxezms outpatient visit 15 Oc [place] DIRECTOR BANKING Work Phone: [facility] IMComment on above:Acute non-recurrent pansinusitis (Primary Dx); Side effect of medicationStart: 07-27-2024 End: 49-72-7878tuytxveyadYFWMAIR A GARMANNot AvailableStart: 06-29-2024 End: 37-21-1951Ymzshgdyo Result EncounterGeneric External Data ProviderNOMS External Department UnsolicitedStart: 06-29-2024 End: 18-11-1110Defwrzupp Result EncounterGeneric External Data ProviderNOMS External Department UnsolicitedStart: 06-10-2024 End: 46-44-6568Iwidwpwdg Result EncounterGeneric External Data ProviderNOMS External Department UnsolicitedStart: 06-10-2024 End: 33-74-1604Hywlgkhhp Result EncounterGeneric External Data ProviderNOMS External Department UnsolicitedStart: 06-02-2024 End: 56-89-7915Eklniyuqe Result EncounterGeneric External Data ProviderNOMS External Department UnsolicitedStart: 06-02-2024 End: 86-95-2870Xhfttbjms Result EncounterGeneric External Data ProviderNOMS External Department UnsolicitedStart: 03-15-2024 End: 43-74-7625mzsrawsercDEFC Andreia Boyceb Work Phone: [facility] Work Phone: Start: 03-15-2024 End: 48-30-8951Jracwrcp ReferredAPRN Andreia Boyceb Work Phone: [facility]-Lab [place] Work Phone: Start: 03-15-2024 End: 66-36-5477Qxeiuun encounter procedureAPRN Andreia Edwards Work Phone: [facility] Justin Work Phone: Start: 11-06-2023 End: 03-79-3274mrmmxygtprQM Ming Espinoza Work Phone: [facility] Work Phone: Start: 11-06-2023 End: 75-74-3212Cvwomhc encounter procedureDO Ming Espinoza Work Phone: [facility]-Lab [address] Work Phone: Start: 07-30-2022 End: 59-75-9067khkssgcapbMaxib Toni Other [employer] [employer] Other Start: 26-77-1116Nbyhpn outpatient visit 25 minutes Yaneth QadirFPG NephrologyStart: 07-29-2022 End: 82-34-6573mixvfhmwyeATGLG QADIRFacility:D4Dcbge: 07-16-2022 End: 46-62-6403lkxgfzdmegMG Ming Espinoza Work Phone: [facility] Work Phone: Start: 07-16-2022 End: 64-85-5218Easnbjy encounter procedureDO iMng Espinoza Work Phone: [facility] Start: 07-03-2022 End: 10-27-8047lanrveglnmCrzzzr Ruttino Other [employer] Other Start: 30-41-9881Bvynpy-up encounterEstefania Haney Vascular SurgeryStart: 06-20-2022 End: 83-00-4186vduatxtbclRfnbjsg Langenberg Other [employer] Other Start: 85-65-6807Vuvvxpnqe encounterMaelenita Parham [facility] Vascular SurgeryStart: 06-20-2022 End: 50-88-3945Bjomhbcrz department patient visitDO Ming Espinoza Work Phone: [facility]-Emergency RoomStart: 06-18-2022 End: 55-95-4528Ikvvqjmbk to same day surgery centerDO Ming Espinoza Work Phone: [facility] CampusStart: 06-14-2022 End: 45-28-3527Euyignv encounter procedureDO Ming Espinoza Work Phone: [facility]-Pre-Surgical Testing Start: 06-06-2022 End: 08-75-8388qlyoglkvwsPP BRINDA Pérezcility:L6Wqucs: 06-05-2022 End: 94-19-2777Daxwntk encounter procedureDO Ming Espinoza Work Phone: [facility]-Pre-Surgical Testing Start: 06-03-2022 End: 65-61-9583dwsmlvxswpBhrphhf Langenberg Other [employer] Other Start: 13-17-4969Iflvvhkeh for other preprocedural examinationMatthew LangjaclynG Vascular SurgeryStart: 95-93-4682Ofdtzfqmf encounterMatthew LangjaclynFPG Vascular SurgeryStart: 05-30-2022 End: 83-40-4651tzbedlkhovLcioesn Langenberg Other [employer] Other Start: 46-82-3938KZLQ visit new patientMatthew DioneG Vascular SurgeryStart: 05-30-2022 End: 01-18-6180Bcjbgiu encounter procedureDO Ming Espinoza Work Phone: [facility] VascularStart: 21-98-5199pmccohpaqsUH BLAKE HINOJOSAFacility:C2Pvobo: 05-02-2022 End: 61-77-2134edhmssfbykJhnej Toni Other [employer] Other Start: 68-15-4894Rmlant outpatient visit 25 minutes Yaneth QadirFPG NephrologyStart: 04-30-2022 End: 60-07-6882nggzdtbjfeQkzobnnrz Breault Other [employer] Other Start: 28-21-1046Jlmdkc outpatient visit 15 minutes Dipika Arce [facility] ClydeStart: 70-37-1537Qfwsikdri for preprocedural laboratory examinationABDUL QADIRThe [facility] HospitalStart: 08-04-8350Fdbxspzwj for other preprocedural examinationDR DOCTOR MISCThe [facility] HospitalStart: 04-27-2022 End: 40-82-7557Bmkvouljl for other preprocedural examinationDR MING ESPINOZA Facility:H0Vvels: 04-27-2022 End: 10-93-7717jebidsomslIC MING ESPINOZAFacility:N7Lwmcu: 04-27-2022 End: 45-23-0577Hseobzohk for preprocedural laboratory examinationABDUL TONI Facility:Y5Rlqeb: 59-54-2172Lnxllurlb for other specified special examinationsDR DOCTOR MISCThe [facility]ala HospitalStart: 04-01-2022 End: 67-67-7741Rlzcvyovj to same day surgery centerDO Ming Espinoza Work Phone: [facility]-Digestive HealthStart: 03-29-2022 End: 88-76-9031bgzsrzehutDC DOCTOR MISCFacility:U0Zhrys: 03-29-2022 End: 38-38-8119Lwpqanvsc for other specified special examinationsDR DOCTOR MISC Facility:H3Vovpk: 03-28-2022 End: 57-01-7804Uaiiefa encounter procedureDO Ming Espinoza Work Phone: [facility] Zpk-Gbm-Ophubzyk Testing Start: 02-26-2022 End: 10-90-7641zojrwcawygOwlranx Robert Other [employer] Other Start: 91-08-6285Xgeyqtlpq encounterCamsariah JonesFPG Referral CoordinatorStart: 12-06-2021 End: 59-48-8163cdzleeluecYnnae Toni Other [employer] Other Start: 53-53-0966Nwacyk outpatient visit 25 minutes Yaneth QadirFPG Nephrology ClydeStart: 12-03-2021 End: 97-16-4706usbvwrkjjjRLOKO QADIRFacility:K4Bthqm: 09-01-2021 End: 59-33-4714bavqxdkhueGF MING ESPINOZAFacility:F8Wxbbj: 08-02-2019 End: 64-45-3841Hmxsdfyvy department patient visitTYLER Genesis Hospitaltart: 08-02-2019 End: 01-22-5738Pqfrrrdxk department patient visitTyler [facility] Work Phone: [facility] EDComment on above:Acute sepsis (HCC) (Primary Dx); Acute cystitis without hematuria; Chronic renal failure, stage 4 (severe) (HCC); Polycystic kidney disease Procedures DateProcedureProcedure DetailPerforming ClinicianStart: 24-47-4328UPT CBC WITH AUTO DIFFGeneric External Data ProviderStart: 87-72-5442HTK CBC WITH AUTO DIFF Generic External Data ProviderStart: 67-20-3955UXY CBC WITH AUTO DIFFGeneric External Data ProviderStart: 40-85-8757PEK MAGNESIUMGeneric External Data ProviderStart: 60-88-3235QSL PHOSPHOROUSGeneric External Data ProviderStart: 77-44-5921APG URIC ACIDGeneric External Data ProviderStart: 20-96-2925PSJ CMP (CMP) (FOR [facility]OTE [facility] USE)Generic External Data ProviderStart: 83-83-9061VLUML BILIRUBIN, DIRECTGeneric External Data ProviderStart: 57-33-7652JQI CBC WITH AUTO DIFFGeneric External Data ProviderStart: 98-51-3222CID MAGNESIUMGeneric External Data ProviderStart: 06-75-7995OUW PHOSPHOROUSGeneric External Data ProviderStart: 83-50-5423SDV URIC ACIDGeneric External Data ProviderStart: 63-41-7336PKN CMP (CMP) (FOR [facility] USE)Generic External Data ProviderStart: 72-19-8599XJOGJ BILIRUBIN, DIRECTGeneric External Data ProviderStart: 00-07-7918CBK CBC WITH AUTO DIFFGeneric External Data ProviderStart: 01-29-2025 ALL CBC WITH AUTO DIFFGeneric External Data ProviderStart: 78-26-9979JRM CBC WITH AUTO DIFFGeneric External Data ProviderStart: 01-71-5362Fgzblyqu identified in Urine by CultureGeneric External Data ProviderStart: 03-78-0840ENM URINALYSISGeneric External Data ProviderStart: 68-47-0089HZF MAGNESIUMGeneric External Data ProviderStart: 86-24-7471UZY PHOSPHOROUSGeneric External Data ProviderStart: 70-43-2334OJE URIC ACIDGeneric External Data ProviderStart: 34-45-5102WOG CMP (CMP) (FOR [facility] USE)Generic External Data ProviderStart: 03-10-1296VIHEW BILIRUBIN, DIRECTGeneric External Data ProviderStart: 44-79-5087XSE CBC WITH AUTO DIFFGeneric External Data ProviderStart: 08-31-2024 ALL LIPID PROFILE (FASTING)Generic External Data ProviderStart: 22-23-5765AJA MAGNESIUMGeneric External Data ProviderStart: 05-65-8887TCU PHOSPHOROUSGeneric External Data ProviderStart: 42-97-3416NEE URIC ACIDGeneric External Data ProviderStart: 41-52-9293XPP CMP (CMP) (FOR [facility] USE)Generic External Data ProviderStart: 07-99-9878TLZBE BILIRUBIN, DIRECTGeneric External Data Provider Start: 29-04-4523PVW HEMOGLOBIN U4RQcmgzwz External Data ProviderStart: 08-25-2024 End: 20-09-1692Nszzlynol mammography of bilateral breastsMing Espinoza DO Work Phone: Start: 55-75-9953Wmhfoqcbmbzwlicj antigen ceaWilliam Micaela DO Work Phone: comment on above:Serial tumor marker results determined by assays using different manufacturers or methods may not be comparable. [facility] container washer and method: RUSSELL UNICEL DXI, 2 SITE IMMUNOENZYMATIC SANDWICH ASSAY. Start: 31-59-6222Iypwy chest X-rayDO Ming Espinoza Work Phone: Start: 12-15-0186Kuqgmnkqxogxwgcp antigen ceaWilliam D Micaela DO Work Phone: comjyak on above:Result Comment: Serial tumor marker results determined by assays using different manufacturers or methods may not be comparable. [facility] container washer and method: RUSSELL UNICEL DXI, 2 SITE IMMUNOENZYMATIC ?SANDWICH? ASSAY. PERFORMED BY: [place] [address] PATHOLOGIST OIL MIXER ANAHY MCKEE M.D.Performed By: #### CEA #### [place] [address] [place] #### CA125 #### [facility] ,Start: 01-80-8891Tnamlroacih tumor antigen quantitative ca 125William D Micaela DO Work Phone: start: 72-36-5254USQ CBC WITH AUTO DIFFGeneric External Data ProviderStart: 85-24-9685YXO CBC WITH AUTO DIFFGeneric External Data ProviderStart: 76-91-8932Nrijtifk identified in Urine by CultureGeneric External Data ProviderStart: 97-41-5171RWY CBC WITH AUTO DIFFGeneric External Data ProviderStart: 21-18-4593Vhwplnv of renal transplantRenal transplant recipientGeneric ProviderStart: 07-16-2022 End: 97-74-0243Kbondfqzz mammography of bilateral breastsDO Ming Espinoza Work Phone: Start: 06-56-1930Axqvhdtxlsuue fistulizationDO Ming Espinoza Work Phone: Start: 38-53-0140Zokhpfmvjg ([place]) doppler flow mapping of vein of upper limbDO Ming Espinoza Work Phone: Start: 98-93-3595Wubrlcohe colonoscopyDO Ming Espinoza Work Phone: Start: 78-18-8884ImnoqcrglugYkxpfog ProviderStart: 43-38-9984Jctom of lactateTYLER WEESEStart: 39-35-9572Ztzsd of troponin quantitativeTYLER WEESEStart: 79-51-5197Sixwf of lactateTyler Kaitlin Work Phone: Start: 72-24-9220Iuwhl of troponin quantitativeTyler Kaitlin Work Phone: Start: 72-17-7268Thcqsvm bacterial quanttative colony count urineTYLER WEESEStart: 67-28-5522Giajljhtps exam chest single viewTYLER WEESEStart: 04-69-6991Sv thorax w/contrast materialTYLER WEESEStart: 08-02-2019 Assay of lipaseTYLER WEESEStart: 76-27-9943Gyivs of troponin quantitativeTYLER WEESEStart: 43-82-9508Njiqd count complete auto&auto difrntl wbcTYLER KAITLIN Start: 09-78-0008EFRJK NATRIURETIC PEPTIDETYLER WEESEStart: 03-79-6804Efgqss dgradj products d-dimer quantitativeTYLER WEESEStart: 07-94-2174Mguamraoiai time VIDAL WEESEStart: 03-78-7509Uzipu of lactateTYLER WEESEStart: 14-63-4540Ientfku bacterial blood aerobic w/id isolatesTYLER WEESEStart: 69-41-5020TYBMHYRD OXYGEN THERAPY PROTOCOLTYLER WEESEStart: 95-71-3614Hzz routine ecg w/least 12 lds w/i&rTYLER WEESEStart: 11-74-1344Yozurwyaht microscopic onlyTyler Kaitlin Work Phone: Start: 28-91-8109Bzuqe dip stick/tablet rgnt auto w/o microscopyTyler Metaps Work Phone: Start: 37-57-7223Wedkhqaacj exam chest single view Vidal [employer] Work Phone: Start: 30-54-1322Xq angiography chest w/contrast/noncontrastTyler Metaps Work Phone: Start: 47-45-1946Vdhfn of lipaseTyler Kaitlin Work Phone: Start: 36-93-2629Qbsld of troponin quantitativeTyler [employer]aps Work Phone: Start: 52-44-9317Ekqqw count complete auto&auto difrntl wbcTyler [employer]aps Work Phone: Start: 37-49-8641Dkrjqu dgradj products d-dimer quantitativeTyler [employer]aps Work Phone: Start: 55-42-5784WNISXSX, SEPSISTyler Kaitlin Work Phone: Start: 98-92-6324Qbyxxybppmo peptideTyler Kaitlin Work Phone: Start: 83-52-5331Vhkozheysar timeTyler Metaps Work Phone: Start: 62-59-1974BNHRIMVT OXYGEN THERAPY PROTOCOLTyler Kaitlin Work Phone: Start: 54-73-7155Hmr routine ecg w/least 12 lds w/i&r Vidal Metaps Work Phone: History of renal transplantRenal transplant recipient ([facility])Ming Espinoza DO Work Phone: History of renal transplantRenal transplant recipient (CMS/HCC)Ming Espinoza DO Work Phone: History of renal transplantRenal transplant recipient (HCC)Ming Espinoza DO Work Phone: SARS Antigen (LFIA)DO Ming Espinoza Work Phone: Plan of Treatment DateCare ActivityDetailAuthorStart: 51-55-3011Clinnyqmm for malignant neoplasm of colonNOSC HealthcareStart: 10-17-2025 End: 24-71-6744Lovwwsu encounter opqtlghlj12/12/2026 8:30 AM EST Office Visit [facility] [place] [facility] [address] [place] [address] [facility] MedicineStart: 14-80-1970Ixipiauqv for malignant neoplasm of breastMammogramJORDAN [facility]LEY [facility] HealthcareStart: 16-49-0497Bpfowweel vaccinationInfluenza Vaccine (#1)[facility] HealthcareStart: 22-98-4417Vnclqkzpgt A1c measurementDiabetes: Hemoglobin N6ZIQDR HealthcareStart: 32-32-7985Yiojlqf function panelMercy Health St. Elizabeth Youngstown Hospitaltart: 35-00-0852YelbmujwqMercy Health St. Elizabeth Youngstown Hospitaltart: 87-76-2288Uvsfu screening for proteinDiabetes: Urine Protein ScreeningNOSC HealthcareStart: 04-11-2025 End: 29-66-5374Hdwpobm encounter hdmetarok96/07/2025 8:00 AM EDT Office Visit [facility] [address] [place], [place] [address] Ming Espinoza, DO [address] [place] [address] [facility] IMStart: 04-06-2025 End: 11-48-2857Gdafvre encounter rielyvdvb61/02/2025 8:15 AM EDT Office Visit [facility] [address] [place], [place] [address] Ming Espinoza, DO [address] [place] [address] [facility] IMStart: 04-01-2025 End: 03-37-8061Tfrpdvy encounter tsxjsyfzi71/27/2025 8:15 AM EDT Office Visit [facility] [address] [place], [place] [address] Ming Espinoza, DO [address] [place] [address] [facility] IMStart: 76-68-0068Iaizglpk identified in Urine by CultureUrine Grant Hospitaltart: 93-42-6888Txurf [facility] Hospitaltart: 10-01-2024 End: 90-34-6058Aizfmst encounter npsyjpjnb57/27/2024 8:15 AM EST Office Visit [facility] [address] [place], [place] [address] Ming Espinoza, DO [address] [place] [address] [facility] IMStart: 09-14-2024 End: 98-94-8215Suydtei encounter qsddrykkc74/10/2024 8:45 AM EST Office Visit [facility] OB [address] [place], [place] [address] Blake Hinojosa, DO [address] [place] [address] [facility] OBStart: 93-50-5060Cmpll screening for protein Diabetes: Urine Protein ScreeningNOMercy hospital springfieldStart: 08-02-2024 End: 81-92-2450Hfghuoz encounter iuxbbmdzt16/28/2024 11:00 AM EDT Office Visit [facility] OB [address] [place] [address] Blake Hinojosa, DO [address] [place] [address] [facility] OBStart: 08-02-2024 End: 02-00-0245Ercpospfknwp / ancillary services rjwfsbybey96/28/2024 10:15 AM EDT Ancillary Procedure [facility] [address] [place] [address] CRWQ SWS OBStart: 94-86-7280PipqlazhbDayton Osteopathic Hospital Start: 28-64-1766Plgalkyewf A1c measurementDiabetes: Hemoglobin G8LGRAU HealthcareStart: 42-47-5948Djlcefhtc vaccinationInfluenza Vaccine (#1)[facility] HealthcareStart: 87-97-0939Ivydjzzb identified in Urine by CultureMercy Health St. Elizabeth Youngstown Hospitaltart: 19-93-9791Xpjeyicb identified in Urine by Culture [facility] Hospitaltart: 77-92-4677KqvclkguoMercy Health St. Elizabeth Youngstown Hospitaltart: 04-86-0191Sfopd screening for proteinDiabetes: Urine Protein ScreeningJORDAN VALLEY [facility] HealthcareStart: 44-02-9416Nstdkpzna for malignant neoplasm of breastMammogramJORDAN [facility]LEY [facility] HealthcareStart: 84-17-6727BvxanjumdDayton Osteopathic Hospital Start: 44-22-2308JoxfkxejsMercy Health St. Elizabeth Youngstown Hospitaltart: 13-89-7635HfqnipuxdBellevue Hospital Work Phone: Start: 80-65-4195Zhvxjquld vaccinationFlu vaccine (#1) [facility]: 07-05-8315Mahme screenLipid screenGeorgetown Behavioral Hospital: 71-47-7665Zzaqnphh cancer screenCervical cancer screenGeorgetown Behavioral Hospital: 27-94-0907QEsU/Tdap/Td vaccine (1 - Tdap)DTaP/Tdap/Td vaccine (1 - Tdap)[facility]: 12-24-2176OCP screenHIV [facility]: 73-21-7178Nfxipjwh screeningDiabetes: Retinopathy ScreeningNOSC HealthcareStart: 79-73-3289Someazyqho monitoringCreatinine monitoringGeorgetown Behavioral Hospital: 65-64-5237Bsqosmojg monitoringPotassium monitoringGeorgetown Behavioral Hospital: 90-76-9363Bfuemixvv for malignant neoplasm of colonJORDAN VALLEY [facility] Nbqmmfpgrs98 hour urine measurementDayton Osteopathic HospitalAlbumin [Mass/volume] in Serum or PlasmaDayton Osteopathic Hospital Albumin/Globulin ratioDayton Osteopathic HospitalAlbumin/Globulin ratio [facility] HospitalAldolase measurementDayton Osteopathic HospitalAnion gap measurementDayton Osteopathic Hospital End: 24-01-1664Buovxjvy identified Cx Nom (U)Urine Culture Microbiology STAT One Time for 1 Occurrences starting 08/02/2019 until 08/02/2019[facility] [place] Comment on above:One Time for 1 Occurrences starting 08/02/2019 until 08/02/2019 Bacteria identified Cx Nom (U)Urine Culture Microbiology STAT 08/02/2019 1:00 PM [place], [place]Bacteria identified in Urine by CultureURINE CULTURE, ROUTINE Lab Routine 06/10/2024 1:35 PM EDTNOSC HealthcareBacteria identified in Urine by CultureURINE CULTURE, ROUTINE Lab Routine 11/04/2024 8:55 PM ESTNOSC HealthcareBasophils [#/volume] in Blood by Automated [facility] CenterBasophils/100 leukocytes in Blood by Automated [facility] CenterBilirubin.indirect [Mass/volume] in Serum or Plasma [facility] HospitalCA 125CA 125 Lab Routine Cyst of left ovary Ordered: 08/02/2024[facility] HealthComment on above:Ordered: 4Cancer Ag 125 [Units/volume] in Serum or PlasmaDayton Osteopathic Hospital Carcinoembryonic Ag [Mass/volume] in Serum or PlasmaCEA Lab Routine Cyst of left ovary Ordered: 08/02/2024[facility] Work Phone: comment on above:Ordered: 08/02/2024 End: 66-78-5786Qvqifal blood #1Culture blood #1 Microbiology STAT One Time for 1 Occurrences starting 08/02/2019 until 08/02/2019[facility] [place]Comment on above:One Time for 1 Occurrences starting 08/02/2019 until 08/02/2019 End: 02-97-9337Tznnafj blood #2Culture blood #2 Microbiology STAT One Time for 1 Occurrences starting 08/02/2019 until 08/02/2019[place], [place]Comment on above:One Time for 1 Occurrences starting 08/02/2019 until 08/02/2019EKG 12 Lead EKG 12 Lead ECG STAT 08/02/2019 12:25 PM EDAvita Health System Bucyrus HospitalTORSTENElectrophoresis: bdzmb-7-erutvwvpZtbwdmamxDayton Osteopathic HospitalElectrophoresis: waoxg-1-dkrbtextOtebcoxsyDayton Osteopathic HospitalElectrophoresis: beta-globulin [facility] HospitalElectrophoresis: gamma globulinDayton Osteopathic HospitalEosinophils/100 leukocytes in Blood by Automated count [facility] HospitalErythrocyte distribution width [Ratio] by Automated countDayton Osteopathic HospitalErythrocytes [#/volume] in Blood [facility] HospitalGlobulin [Mass/volume] in [facility] HospitalGlobulin [Mass/volume] in [facility] HospitalGlomerular filtration rate [Volume Rate/Area] in Serum, Plasma or Blood by CreatinineDayton Osteopathic HospitalHematocrit [Volume Fraction] of UK HealthcareHemoglobin [Mass/volume] in BloodDayton Osteopathic HospitalHomogenous nuclear Ab pattern [Titer] in SerumDayton Osteopathic HospitalIgA [Mass/volume] in Serum or PlasmaDayton Osteopathic HospitalIgG [Mass/volume] in Serum or [facility] JacksonIgM [Mass/volume] in Serum or [facility] Immunofixation for UrineDayton Osteopathic HospitalInitiate Oxygen Therapy ProtocolInitiate Oxygen Therapy Protocol Respiratory Care Routine Daily until discontinued starting 08/02/2019, 2 completedTri[facility], FrogAppsComcody on above:Daily until discontinued starting 08/02/2019, 2 completed End: 78-95-6899Qyytczk, SepsisLactate, Sepsis Lab Timed Now Then Every 2hr for 2 Occurrences starting 08/02/2019 until 08/02/2019, 1 completedTriHealth [facility], ILComment on above:Now Then Every 2hr for 2 Occurrences starting 08/02/2019 until 08/02/2019, 1 completedLeukocytes [#/volume] corrected for nucleated erythrocytes in Blood by Automated counDayton Osteopathic Hospital Leukocytes [#/volume] in BloodDayton Osteopathic HospitalLymphocytes [#/volume] in Blood by Automated countDayton Osteopathic Hospital Lymphocytes/100 leukocytes in Blood by Automated [facility] CenterMCH [Entitic mass] by Automated [facility] MCHC [Mass/volume] by Automated [facility] CenterMCV [Entitic volume] by Automated [facility] CenterMeasurement of monoclonal protein concentrationDayton Osteopathic HospitalMonocytes [#/volume] in Blood by Automated countDayton Osteopathic Hospital Monocytes/100 leukocytes in Blood by Automated countDayton Osteopathic HospitalNeutrophils [#/volume] in Blood by Automated [facility] CenterNeutrophils/100 leukocytes in Blood by Automated [facility] CenterNuclear Ab [Titer] in SerumDayton Osteopathic HospitalNucleated erythrocytes [Presence] in Blood by Automated [facility] CenterPatient EducationOhiohealth Doctors Hospital Ctr Work Phone: Patient referralOhiohealth Doctors Hospital Ctr Work Phone: Platelet mean volume [Entitic volume] in Blood by Automated [facility] CenterPlatelets [#/volume] in Blood [facility] HospitalPotassium [Moles/volume] in Serum or Plasma [facility] Work Phone: Protein [Mass/volume] in Serum or PlasmaDayton Osteopathic HospitalProtein [Mass/volume] in UrineMercy Health St. Elizabeth Youngstown Hospitalerum immunofixationDayton Osteopathic Hospital Immunizations Immunization DateImmunizationNotesCare PdwimiliUrobzwia13-02-3396Shogxqbaw, Madin Sarah Canine Kidney, subunit, trivalent, injectable, contains preservative Ming Espinoza DO Work Phone: [facility] HealthTnwgyxautq78-42-1317xgitkjwik virus vaccine, unspecified formulationMing Espinoza DO Work Phone: [facility] HealthRlmklwaqvt20-25-7502Kjexcqztm, injectable, Madin Enterprise Canine Kidney, preservative free, quadrivalentGeneric ProviderNOMercy hospital springfieldFjgfifaetf97-61-2946epuoxnsni virus vaccine, unspecified formulationGeneric [facility] HospitalCjmmbzhmri08-34-1273DPYWL-69 Ad26.COV2.S (Ainsley)DO Ming Ibarraman Work Phone: [facility]08-24-2020influenza, high dose seasonal, preservative-freeGeneric [facility]11-06-2019 influenza, injectable, madin sarah canine kidney, preservative freeGeneric [facility] HospitalOguqzvkwwi21-77-1148gtjdmpkuhjsk polysaccharide vaccine, 23 valent Generic [facility] HospitalWoozwhxtwz24-57-0392ioaojrng influenza, intradermal, preservative freeGeneric [facility] Payers DatePayer CategoryPayerPolicy [id number] Health InsuranceMEDICAL MUTUAL Member Subscriber Plan / Payer (Effective 2023-Present) Name: Mandeep Puri Relation to Subscriber: Spouse Name: Evan Puri Date of : 1970 Address: [address] [place] [address] Payer ID: Not on file Type: Not on file Address: [address] [place] [id number] [employer] [id number] 2023- [address] [place] [id number] MUTUAL MEDICAL MUTUAL [address] xxxxxxxxx 2015- [phone] [address] [place] [id number] [id number] [id number] 2.16.840.1.659287.3.57[id number] 2.16.840.1.879847.3.57[id number] 2.16.840.1.884256.3.57[id number] 2.16.840.1.690823.3.579.2.01328-28-4500Ytjwtsr2669255 2.16.840.1.417633.3.579.[id number] 2..840.1.803126.3.579.[id number] 2..840.1.571365.3.57[id number] 2..840.1.384334.3.579.2.09289-57-1844Dzpycng7755318 2..840.1.728787.3.57[id number] 2..840.1.828081.3.57[id number] 2..840.1.542716.3.57[id number] 2.16.840.1.756250.3.579.2.8[id number] 2..840.1.294652.3.579.2.[id number] 2.16.840.1.365887.3.579.2.742818-27-5169Dtcfctq3207913 2..840.1.347407.3.579.2.[id number] 2.16.840.1.183664.3.579.2.346422-83-3763Ffdianm4715420 2..840.1.491585.3.579.[id number] 2.16.840.1.177500.3.579.2.108998-63-5497Khgx-juf 4p3254x9-67b1-1965-757w-5aw21173uq7510-13-4523Uqmeblc15989695397-60-5438Pmtfgas [id number] 2.16.8[id number] 2.16840.1.473462.19Unknown [id number] 2.16.840.1.1[id number] 2.840.1.54[id number] 2.16.840.1.129210.3.579.2.531 [id number] 2.0.1.895245.3.579.2.531 Social History DateTypeDetailFacilityTobacco smoking status NHISUnknown if ever smokedShelby Memorial Hospital MicrostaqALVIN J. SITEMAN CAN[facility], KYSex Assigned At BirthNot on fileNewark HospitalQWiPSALVIN J. SITEMAN [facility], KYStart: 04-19-2024 End: 46-39-6684Ymi Assigned At [facility] TripTouch Other Start: 06-05-2022 End: 25-74-7084Yehfnid smoking status NHISNever smoked tobacco (finding) [facility] CenterStart: 32-01-1850Dsx Assigned At [facility] Hospitaltart: 80-31-5411Dwjuhut use and exposure Smokeless tobacco non-userNOMS HealthcareStart: 07-27-2024 End: 41-70-4101Lzsszvjnb beverage intakeLifetime non-drinker (finding)[facility] HealthcareStart: 04-19-2024 End: 14-99-8471Tsrrlyf of Social functionNOMS HealthcareHow often to you have a drink containing alcohol?NeverNOMS HealthcareStart: 56-31-6183Obm many standard drinks containing alcohol do you have on a typical day?Patient does not drink [facility] HealthcareStart: 82-07-7523Snslrxy CommentCaffeine: occasional teaNOMS HealthcareStart: 80-12-3619Qjbann identityIdentifies as female gender (finding) [facility] HealthcareStart: 80-61-6231Ogbmnd orientationHeterosexual (finding)[facility] HealthcareStart: 08-26-2024 End: 00-46-4024HhfFbyria (finding)[facility] HospitalNEGATED: Highlighted [facility] Medical Equipment Procedure CodeEquipment CodeEquipment Original TextEquipment IdentifierDatesUse as [id number]: 06-10-2023 End: 06-09-2024 Goals DatePatient GoalDesired Activity/State Functional Status HpolHitassqvbkMwlfjsYmzongbb18-75-0826Vziavhk Health Questionnaire 2 item (PHQ- 2) [Reported][facility] Clinical Notes 05-17-2020 to 07-27-2025 Note Date & JtpqVdusAwsiszac69-25-2310 NoteOn 07/27/2025 pt called because she did not come to scheduled appt with Dr. Parrish to discuss [place] nephrectomy. Pt states work situation currently difficult but has an opportunity in January 2026 to get help with recuperation bc will be off work for [address] Parrish appt now 11/30/2025.[facility]08-28-2025 NoteTC called pt to inform her that Dr. Parrish is agreeable to having her seen in clinic visit to discuss [place] nephrectomy. Communication between Leo, DIRECTOR BANKING and Dr. Parrish confirmed CT previously done in 07/02/2024 is acceptable imaging and no need for newer test. TC called pt who reports that she would prefer appt in July because has surgery planned soon so she will need to be available for him and wants his concern resolved before starting process on [place] nephrectomy. TC and pt agreed on July 27. TC sent email to clinic staff to schedule pt in EPIC.[facility] 06-01-2025 NoteTransplant Clinic Patient : Mandeep [...] recently was seen at the ER in [facility], started on a course of Cipro, [...] 04/27/2024 COLORU Yellow 11/12/19 (more content not included)...[facility]08-22-2025 History of Present illness Narrative* Calista [...] back to 60 mg. - Side Effects: Tatamy almost comatose on 90 mg dose, felt [...] Plans to have old kidney removed before [place]. Blood Pressure Her blood pressure is usually [...] LOW TRANSVERSE 07/23/2003 COLONOSCOPY 04/01/2022 Dx Diverticulosis [place] BREAST REDUCTION 1996 TOTAL ABDOMINAL HYSTERECTOMY 03/19/2017 [...] nephropathy, without long-term current use of insulin ([facility]) Diabetes Mellitus: Stable. A1c 5.2. - Continue monitoring blood sugar levels. - Consider reducing Ozempic dosage if fatigue persists. 6. Iron deficiency anemia, unspecified iron deficiency anemia type Iron Deficiency: Chronic. - Take iron every other day. - Add vitamin C 500 mg bjsk-ohv-yplxlly every other day to aid in absorption. [...] for the above issues. documented in this encounterCrittenton Behavioral HealthKulsrpmgie70-99-8529 NotereUnRiverview Health Institute07-01-2025 NoteExternal Glucose was entered incorrectly in the CMP results from 04/02/25. Correct Glucose was entered separately by clinic staff member.[facility]07-01-2025 NoteresUnRiverview Health Institute 04-05-2025 NoteResultsUnRiverview Health Institute04-30-2025 NoteReviewed poatssium level and pt's request to switch to 10MEQ tabs with Dr. Monterroso. PO received ok to change to 10MEQ and increase to 30MEQ daily. Called pt notified of change and verified pharmacy. Pt requested refills on MagOx that her pharmacy told her the doctor did not approve. Operating Systems Programmer refilled MagOx. Medication list updated.[facility]02-19-2025 Note Patient called stating a urine culture was supposed to be done on 11/12/24. No urine culture was done. Patient states she is still having symptoms of UTI. Patient would like a callback.[facility]02-07-2025 Note Transplant Clinic Patient : Mandeep [...] recently was seen at the ER in [facility], started on a course of Cipro, [...] flank pain. None today. Will order Ultrasound [place] and transplant kidney. Pt known hx: Chronic [...] 337 04/23/2024 Endocrine: L (more content not included)...[facility]02-04-2025 NotePatient called in this afternoon c/o ongoing urinary symptoms. She also has back pain, nausea and on/off low grade fever. Patient was treated with Keflex in mid October and recently given Cipro 250 mg BID by local ED. Reviewed with Dr. Elizondo who recommends patient come to ED to be evaluated and determine need for admission. Patient was updated and verbalized understanding.[facility]01-16-2025 NotePt was notified of new order from Dr. Davies by phone to complete Keflex 500mg TID for 1 week. Pt informed and verbalized understanding. RX was sent.[facility]01-16-2025 NoteNoted patient call to transplant clinic [...] she had sepsis and was hospitalized @ [facility] four years ago. She at work today and seems in good humor.[facility]01-16-2025 NotePer phone order of Nelson Mcqueen MD, patient notified via phone call to decrease their medication Myfortic dose twice a day 360 mg , will now be on 360mg twice a day an no need for urology FU at this time. Pt informed by phone and verbalized understanding.[facility]01-16-2025 Note Pt called wanting to talk to Lu. She has uti sx's with low grade fever, chills, abd pain. She didn't think of this yesterday when she spoke with Lu. She does want to go ahead and get the abx called [facility]01-15-2025 NoteNoted urine culture report showing E coli MDRO from [facility]. Pt reports using BID Methamine after [...] Pt states prior to renal transplant her laundry operator wash room prescribed Bactrim for her to prevent UTIs and she wishes that the E Coli was gone from her urine. Verbalized understanding of colonization. Have asked urology clinic [place] staff via [employer] Secure Chat to contact pt for FU with Dr. Davies. Will discuss with this MD plan for return visit.[facility]01-15-2025 NoteFaxed stat request to [facility] for results of 10/14/24 [address] culture[address]01-07-2025 Note Patient called, states she is [...] time due to possible infection. Patient verbalized understanding.[facility] 09-14-2024 History of Present illness Narrative* Carol Camacho, CIARRA - 09/14/2024 8:45 AM EST Images from the original note were not included. Blake Hinojosa, DO Obstetrics and Gynecology Mandeep Puri 1975 09/14/24 [id number] Ultrasound Follow Up Exam Chief Complaint Patient [...] LOW TRANSVERSE 07/23/2003 COLONOSCOPY 04/01/2022 Dx Diverticulosis [place] BREAST REDUCTION 1996 TOTAL ABDOMINAL HYSTERECTOMY 03/19/2017 [...] Date 09/14/24 Time 5:00PM. documented in this encounterCrittenton Behavioral HealthNzuwmcnmtl78-44-9087 NotePatient tac level is 8.2, per Dr Sharla anderson, patient notified to decrease envarsus by 0.5 mg, will now be on 1.5 mg daily of envarsus, repeat level in one week. Patient verbalized understanding.[facility]10-28-2024 History of Present illness Narrative* Carol Camacho MA - 08/02/2024 11:00 AM EDT Images from the original note were not included. Blake Hinojosa, DO Obstetrics and Gynecology Mandeep Puri 1975 08/02/24 [id number] Yearly Wellness Exam Chief Complaint Patient presents [...] LOW TRANSVERSE 07/23/2003 COLONOSCOPY 04/01/2022 Dx Diverticulosis [place] BREAST REDUCTION 1996 TOTAL ABDOMINAL HYSTERECTOMY 03/19/2017 [...] Date 08/02/24 Time 5:00PM. documented in this encounterCrittenton Behavioral HealthUplslhhdgs24-70-7021 History of Present illness Narrative* Lucero Hudson, [...] Active Problem List Diagnosis Benign essential hypertension ([facility]) Fibromyalgia MICHELLE (iron deficiency anemia) RADHA (obstructive sleep apnea) Renal transplant recipient ([facility]) Type 2 diabetes mellitus with diabetic chronic kidney disease ([facility]) Mixed anxiety and depressive disorder Dyslipidemia ([facility]) Gastroesophageal reflux disease Immunosuppressive management encounter following kidney transplant ([facility]) ADPKD (autosomal dominant polycystic kidney disease) Polyarthritis of multiple sites Anxiety Anemia of renal disease NSTEMI (non-ST elevated myocardial infarction) ([facility]) Polycystic kidney disease Secondary hyperparathyroidism ([facility]) Tonsillolith Stage 4 chronic kidney disease ([facility]) Chronic kidney disease, stage 5 ([facility]) Gout Review of Systems Constitutional: Positive [...] M10.9)She has gout and follows with a pumper head. She takes Urolic and denies any recent gout flare Jul,Metabolic acidemia, unspecified (ICD-10 - P19.9)She has metabolic acidosis due to the advanced CKD. Continue oral Sodium Bicarbonate [facility] Other 09-28-2022 Evaluation note* Encounter Date Diagnosis [...] disease, unspecified CKD stage (ICD-10 - N18.9) [facility] Encounter Date Diagnosis Assessment Notes Treatment Notes Treatment Clinical Notes May, Pre-op testing (ICD-10 - Z01.818 ) [facility] Other 08-25-2022 Evaluation note* Encounter Date Diagnosis [...] will schedule this in the near future. [facility] Other 07-28-2022 Evaluation note* Encounter Date Diagnosis [...] to her the potential need of MANAGER MEDICAID in future. I discussed with her different options of MANAGER MEDICAID including PD, HTN renal transplant. I provide [...] M10.9)She has gout and follows with a pumper head. She takes Urolic and denies any recent gout flare [facility] Other 07-26-2022 Evaluation note* Encounter Date Diagnosis [...] care provider if no improvement of symptoms. [facility] Other 05-24-2022 Evaluation note* Encounter Date Diagnosis Assessment Notes Treatment Notes Treatment Clinical Notes February, Screening for colon cancer (ICD- 10 - Z12.11) [facility] Other 03-03-2022 Evaluation note* Encounter Date Diagnosis [...] to her the potential need of MANAGER MEDICAID in future. I discussed with her different options of MANAGER MEDICAID including PD, HTN renal transplant. I provide [...] She has gout and follows with a pumper head. She takes Urolic and denies any recent gout flare [facility] Other 06-25-2021 NotePatient Outreach (NEPHMN) MANDEEP PURI ([id number]) 1975 F Date Time Provider Department 03/30/21 PERRI BARRETT During your visit today, we recorded the following information about you: Allergies As of Date: 03/30/2021 Noted Allergy Reaction ALLOPURINOL 08/02/2019 4 - Hives Date Reviewed: 03/30/2021 Reviewed by: Perri Barrett MD - Fully Assessed Visit Diagnosis:Screening for genitourinary condition [Z13.89] Order(s):URINALYSIS, DIPSTICK ONLY [SQUA] Order #: [id number]. #:[id number] Prescriptions as of 03/30/2021 Sig: DULOXETINE 60 [...] dominant polycystic kidney dis*03/30/2021 Encounter Status:Closed by Fiteeza, PRODUSER on 04/02/21[facility] 03-30-2021 NoteHNO ID: [id number] Author: Perri Barrett MD Service: ? Author Type: Physician Type: Progress Notes Filed: 03/30/2021 10:25 AM Note Text: Mrs. Puri is a 45 year old from [place], [place] here with her rebekahusbandEvan seen at [...] PTH, VITD25, CHOL, HBA1C, HBSAGR, HEPSABQ, HEPCABEIA 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 sirolimus (rapamycin) [facility] general Narrative - Reported * Type Description Date Medical History HTN (hypertension) Medical HistoryAnxietyMedical Historypolycystic kidneysMedical HistoryCOVID [id number] HistoryC sectionSurgical HistoryBREAST REDUCTION Hospitalization Historychild birthHospitalization HistoryKIDNEY RLRWNYDLX99/2019 Hospitalization HistoryCOVID AND DEHYDRATION05/29/2020 [facility] Other 08-12-2020 History general Narrative - Reported* Type Description Date Medical History HTN (hypertension) Medical HistoryAnxietyMedical Historypolycystic kidneysMedical HistoryCOVID [id number] Historyend stage renal diseaseSurgical HistoryC sectionSurgical HistoryBREAST REDUCTIONSurgical Historycolonoscopy04/01/2022urgical History wisdom teeth03/24/2022Hospitalization Historychild birthHospitalization History KIDNEY RSASVXMQH02/2019Hospitalization HistoryCOVID AND DEHYDRATION05/29/2020 [facility] Other 08-12-2020 History general Narrative - Reported* Type Description Date Medical History HTN (hypertension) Medical HistoryAnxietyMedical Historypolycystic kidneysMedical HistoryCOVID [id number] Historyend stage renal diseaseSurgical HistoryC sectionSurgical HistoryBREAST REDUCTIONSurgical Historycolonoscopy04/01/2022urgical History wisdom teeth03/24/2022urgical HistoryHYSTERECTOMYHospitalization Historychild birthHospitalization HistoryKIDNEY MPEKBMLZV64/2019Hospitalization HistoryCOVID AND DEHYDRATION05/29/2020 [facility] Other 08-12-2020 History general Narrative - Reported* Type Description Date Medical History HTN (hypertension) Medical HistoryAnxietyMedical Historypolycystic kidneysMedical HistoryCOVID [id number] Historyend stage renal diseaseSurgical HistoryC sectionSurgical HistoryBREAST REDUCTIONSurgical Historycolonoscopy04/01/2022urgical History wisdom teeth03/24/2022urgical HistoryHYSTERECTOMYSurgical HistoryLEFT AV FISTULA 06/18/2022Hospitalization Historychild birthHospitalization HistoryKIDNEY ZUHZCXYDI72/2019Hospitalization HistoryCOVID AND DEHYDRATION05/29/2020 [facility] Other Evaluation noteNo assessment information available [facility] Work Phone: Evaluation noteNo InformationNort TripTouch Other Evaluation note* Diagnosis Onset Date Resolution Status Dysuria acuteUTI (urinary tract infection)acute [facility] Work Phone: Evaluation note* Diagnosis [...] [facility]* Diagnosis Benign essential hypertension ([facility])- Primary Essential hypertension, benign Renal transplant recipient ([facility]) Immunosuppressive management encounter following kidney transplant ([facility]) Encounter for long-term (current) use of other medications Anemia of renal disease Anemia in chronic kidney disease Iron deficiency anemia, unspecified iron deficiency anemia type Type 2 diabetes mellitus with stage 3a chronic kidney disease, without long-term current use of insulin ([facility]) ([facility]) Dyslipidemia ([facility]) Other and unspecified hyperlipidemia Fibromyalgia Unspecified myalgia and myositis Need for immunization against influenza Need for prophylactic vaccination and inoculation against influenza documented in this encounter [facility]* Diagnosis Polycystic kidney disease- Primary Congenital polycystic kidney, unspecified type Anemia of renal disease Anemia in chronic kidney disease Immunosuppressive management encounter following kidney transplant ([facility]) Encounter for long-term (current) use of other medications Renal transplant recipient ([facility]) Type 2 diabetes mellitus with stage 3a chronic kidney disease, without long-term current use of insulin (HCC) ([facility]) Dyslipidemia ([facility]) Other and unspecified hyperlipidemia documented in this encounter [facility]* Diagnosis Benign essential hypertension- Primary Essential hypertension, benign ADPKD (autosomal dominant polycystic kidney disease) Congenital polycystic kidney, autosomal dominant Type 2 diabetes mellitus with stage 3a chronic kidney disease, without long-term current use of insulin (HCC) Renal transplant recipient ([facility]) Mixed anxiety and depressive disorder Dysthymic [...] Abdominal pain, generalized Hypokalemia Hypopotassemia Immunosuppressed status ([facility]) Essential hypertension Unspecified essential hypertension Type 2 diabetes mellitus with diabetic nephropathy, without long-term current use of insulin ([facility]) Iron deficiency anemia, unspecified iron deficiency anemia type Gastroesophageal reflux disease without esophagitis Esophageal reflux Fibromyalgia Unspecified myalgia and myositis documented in this encounter [facility] HealthcareReason for referral (narrative)No reason for referral information availableOhiohealth [facility] Work Phone: Assessments Diagnosis Acute sepsis (HCC)- Primary Acute cystitis without hematuria Acute cystitis Chronic renal failure, stage 4 (severe) (HCC) Polycystic kidney disease Polycystic kidney, unspecified type Advance Directives TypeDate RecordedPatient RepresentativeExplanationAdvance Directives and Living WillPower of Construction Administrative Assistant Advance Directive Response Recorded Date/ Time Advance [...] section and content) DATE CREATED AUTHOR 08/04/2019 [facility] DATE CREATED AUTHOR AUTHOR'S ORGANIZ ATION 04/28/2020 [facility] DATE CREATED AUTHOR AUTHOR'S ORGANIZ ATION 09/12/2020 [facility] DATE CREATED AUTHOR AUTHOR'S ORGANIZ ATION 11/07/2021 [facility] DATE CREATED AUTHOR AUTHOR'S ORGANIZ ATION 02/27/[address] [facility] DATE CREATED AUTHOR AUTHOR'S ORGANIZ ATION 08/04/2022 [facility] DATE CREATED AUTHOR AUTHOR'S ORGANIZ ATION 05/29/2025 [facility] DATE CREATED AUTHOR AUTHOR'S ORGANIZ ATION 06/19/2025 [facility] DATE CREATED AUTHOR AUTHOR'S ORGANIZ ATION 07/29/[address] [facility] Care Teams (unrecognized sec tion and [...] DO [address] [place] [address] PCP - [facility] [employer]10/06/2211 Ming Espinoza DO [address] [place] [address] PCP - GeneralInternal Medicine05/02/23Team MemberRelationshipSpecialtyStart Date End Date Ming Espinoza DO [address] [place] [address] PCP - [facility]10/06/2211 Ming Espinoza DO [address] [place] [address] PCP - [facility] Medicine05/02/23Team MemberRelationshipSpecialtyStart Date End Date Ming Espinoza DO [address] [place] [address] PCP - [facility]10/06/2211 Ming Espinoza DO [address] [place] [address] PCP - [facility]05/02/23Team MemberRelationshipSpecialtyStart Date End Date Ming Espinoza DO [address] [place] [address] PCP - [facility] [employer]10/06/2211 Ming Espinoza DO [address] [place] [address] PCP - [facility]05/02/23 Team Status: Inactive Member Role Status Dates Ming Espinoza DO Primary Care Provider Active Start: August 02, 2024 End: August 02, 2024Tonya Soto ProviderActiveStart: August 02, 2024 End: August 02, 2024Marek Navas ProviderActiveStart: August 02, 2024 End: August 02, 2024 Team Status: Inactive Member Role Status Dates Blake Hinojosa DO Attending Provider Active Start: August 25, 2024 End: August 25, 2024Olivia Ramos [facility] ProviderActiveStart: August 25, 2024 End: August 25, 2024Team MemberRelationshipSpecialtyStart DateEnd Date Ming Espinoza DO [address] [place] [address] PCP - [facility] [employer]10/06/2211 Ming Espinoza DO [address] [place] [address] PCP - GeneralInternal Medicine05/02/23Team MemberRelationshipSpecialtyStart Date End Date Ming Espinoza DO [address] [place] [address] PCP - [facility] [employer]10/06/2211 Ming Espinoza DO [address] [place] [address] PCP - GeneralInternal Medicine05/02/23Team MemberRelationshipSpecialtyStart Date End Date Ming Espinoza DO [address] [place] [address] PCP - [facility] [employer]10/06/2211 Ming Espinoza DO [address] [place] [address] PCP - GeneralInternal Medicine05/02/23Team MemberRelationshipSpecialtyStart Date End Date Ming Espinoza DO [address] [place] [address] PCP - [facility] [employer]10/06/2211 Ming Espinoza DO [address] [place] [address] PCP - GeneralInternal Medicine05/02/23Team MemberRelationshipSpecialtyStart Date End Date Ming Espinoza DO [address] [place] [address] PCP - [facility]10/06/2211 Ming Espinoza DO [address] [place] [address] [facility] Team Status: Inactive Member Role Status Dates Ming Espinoza DO Primary Care Provider Active Start: October 14, 2024 End: October 14, 2024Tonya Kline ProviderActiveStart: October 14, 2024 End: October 14, 2024Team MemberRelationshipSpecialtyStart DateEnd Date Ming Espinoza DO [address] [place] [address] PCP - [facility]10/06/2211 Ming Espinoza DO [address] [place] [address] PCP - GeneralInternal Medicine05/02/23Team MemberRelationshipSpecialtyStart Date End Date Ming Espinoza DO [address] [place] [address] PCP - [facility] [employer]10/06/2211 Ming Espinoza DO [address] [place] [address] PCP - GeneralInternal Medicine05/02/23Team MemberRelationshipSpecialtyStart Date End Date Ming Espinoza DO [address] [place] [address] PCP - [facility] [employer]10/06/2211 Ming Espinoza DO [address] [place] [address] [facility] Team Status: Active Member Role Status Dates Perri Wong MD Primary Care Provider Active Team Status: Inactive Member Role Status Dates Perri Wong MD Primary Care Provider Active St art: May 24, 2025 End: May 24, 2025Padakota Stein DOEmergency ProviderActiveStart: May 24, 2025 End: May 24, 2025Team MemberRelationshipSpecialtyStart DateEnd Date Ming Espinoza DO [address] [place] [address] PCP - [facility] [employer]10/06/2211 Perri Wong MD [address] [place] [address] [facility] - [facility]05/24/25Team MemberRelationshipSpecialtyStart Date End Date Ming Espinoza DO [address] [place] [address] PCP - [facility] [employer]10/06/2211 Perri Wong MD [address] [place] [address] PCP - GeneralInternal Medicine05/24/25Team MemberRelationshipSpecialtyStart Date End Date Ming EspinozaDO [address] [place] [address] PCP - [facility] [employer]10/06/2211 Perri Wong MD [address] [place] [address] PCP - [facility]05/24/25 Goals (unrecognized section and content) Goals may [...] BE BASED ON THE PRIMARY CLINICAL RECORDS. [employer] [facility]. provides no warranty or guarantee of the accuracy or completeness of information in this document.
[2025-10-04 07:50] LABS: Hematocrit 42.8 % (36.0-48.0); Hemoglobin 14.3 g/dL (12.0-16.0); Immature Granulocytes Abs Auto 0.06 10^3/uL (0.00-0.03); Immature Granulocytes Pct Auto 0.8 % (0.0-0.5); Lymphocytes Absolute Auto 1.5 10^3/uL (1.2-3.8); Mean Corpuscular HGB Conc 33.4 g/dL (29.9-35.2); Mean Corpuscular Hemoglobin 29.2 pg (26.7-34.0); Mean Corpuscular Volume 87.5 fL (81.0-99.0); Platelet Count 324 10^3/uL (150-450); Red Blood Count 4.89 10^6/uL (4.20-5.40); White Blood Count 7.8 10^3/uL (4.0-11.0)
[2025-10-04 08:33] LABS: Alanine Aminotransferase 24 U/L (14-59); Albumin Globulin Ratio 0.9; Albumin Level 3.8 g/dL (3.4-5.0); Alkaline Phosphatase 89 U/L (46-116); Anion Gap 15.4; Aspartate Amino Transferase 19 U/L (15-37); Blood Urea Nitrogen 13.0 mg/dL (7.0-18.0); Calcium 9.1 mg/dL (8.5-10.1); Carbon Dioxide 25.3 mmol/L (21.0-32.0); Chloride 103 mmol/L (98-107); Cholesterol 211 mg/dL (<=200); Estimated GFR (African America 57 (>=60 mL/min/1.73m^2); Estimated GFR (Non-African Ame 47 (>=60 mL/min/1.73m^2); Globulin 4.0 g/dL; Glucose 114 mg/dL (74-106); HDL Cholesterol 50 mg/dL (40-60); Magnesium 2.0 mg/dL (1.8-2.4); Potassium 3.7 mmol/L (3.5-5.1); Sodium 140 mmol/L (136-145); Total Protein 7.8 g/dL (6.4-8.2); Triglycerides 194 mg/dL (<=150); Uric Acid 4.3 mg/dL (2.6-6.0); VLDL CHOLESTEROL 38.8 mg/dL
[2025-10-05 15:10] LABS: BKV DNA, Quant PCR, Plasma Negative (Negative)
[2025-10-06 14:08] LABS: Tacrolimus (FK506), Blood 5.3 ng/mL (5.0-20.0)
== END 2025-10-04 07:18 | disposition home or self-care (01) ==
PROVIDERS: PCP Internal Medicine; Visit Provider Internal Medicine Nephrology
DX: R73.01 Impaired fasting glucose (principal); Z94.0 Kidney transplant status; E78.5 Hyperlipidemia, unspecified; R60.9 Edema, unspecified
CPT/HCPCS: 36415; 80053; 80061; 80197; 82248; 83036; 83735; 84100; 84550; 85025; 87799